=== PATIENT | male | born 1950 | race Caucasian/White ===

== ENCOUNTER 2019-07-25 20:24 | Inpatient (IN) | payer MEDICARE, OTHER, SELFPAY ==
--- NOTE | ~2019-07-25 | XR_ITS ---
EXAMINATION: XR chest 1V portable DATE: 08/03/2019 05:59 INDICATION: Right lower lobe infiltrate. TECHNIQUE: A single frontal view of the chest was obtained. COMPARISON: Chest single view 08/01/2019, chest CT 07/26/2019 FINDINGS: There are small pleural effusions. There are airspace opacities in right mid and lower lung zones and left lower lung zone with a basilar predominance. No pneumothorax. The heart size is marisabel l. Calcified left hilar lymph nodes are consistent with old granulomatous disease. IMPRESSION: 1. Stable airspace opacities in right mid and lower lung zones and left lower lung zone with a basila r predominance, consistent with atelectasis versus pneumonia. 2. Small pleural effusions with worsening on the left. Reviewed, dictated and finalized at location A. IMPRESSION: 1. Stable airspace opacities in right mid and lower lung zones and left lower l juvencio zone with a basilar predominance, consistent with atelectasis versus pneumo seamus. 2. Small pleural effusions with worsening on the left.
--- NOTE | ~2019-07-25 | CT_ITS ---
EXAMINATION: CTA chest PE protocol EXAM DATE: 07/26/2019 10:47 INDICATION: Tachycardia, hypoxia. Facet atrial fibrillation. TECHNIQUE: Spiral CTA of the chest (pulmonary arteries) was performed with 100 cc Omnipaque 350 intr avenous contrast injection. Images were acquired during the pulmonary arterial phase. Coronal maxi mum intensity projection 3D-reconstructions were created by the technologist on dedicated workstation . Axial, coronal and sagittal reformatted images were reviewed. The dose-length product (DLP) for t his examination was 755.52 mGy-cm. The exposure was tailored according to patient size (auto mA exp osure control), and iterative reconstruction (ASIR) was used as additional dose reduction technique. There is no prior study for comparison. FINDINGS: There are no pulmonary emboli in the 1st through 3rd order (central and interlobar) pulmon claudio arteries. Some loss of attenuation in the basilar segmental pulmonary arteries due to respirator y motion, but no intraluminal filling defects suspected. No thoracic aortic dissection. There is mi ld emphysema. The lungs are clear. Small pericardial effusion. Tracheobronchial tree is patent. There is no mediastinal, hilar or axillary lymphadenopathy. There is no pneumothorax. Mild cardio megaly. There is mild to moderate coronary arterial calcification, arterial sclerosis. Hepatic stea tosis. There is mild thoracic spondylosis without osteoblastic or osteolytic lesions identified. Ch ronic mild to moderate compression fracture central aspect of T12. IMPRESSION: 1. Limited segmental evaluation, but no pulmonary emboli are suspected. 2. Small pericardial effusion. 3. Mild cardiomegaly. 4. Mild emphysema. Reviewed, dictated and finalized at location A.
--- NOTE | ~2019-07-25 | CT_ITS ---
EXAMINATION: CT brain wo con EXAM DATE: 07/26/2019 10:48 INDICATION: Syncope. TECHNIQUE: Spiral CT of the head was performed without contrast. Axial, coronal and sagittal images were reviewed. The dose-length product (DLP) for this examination was 681.00 mGy-cm. The exposure w as tailored according to patient size, and iterative reconstruction (ASIR) was used as additional dos e reduction technique. There is no prior study for comparison. FINDINGS: Study is limited due to patient motion. There is no acute intraparenchymal hemorrhage. No evidence of intraparenchymal brain mass lesion. No evidence of acute infarction. Please note that i nitial head CT has limited sensitivity for small or acute infarctions. There is mild periventricular and subcortical hypodensity, nonspecific but probably related to small vessel ischemic disease. The re is mild prominence of the sulci and ventricles related to cerebral atrophy. There is intracrania l carotid arteriosclerosis. There are no extra-axial collections. There is no mass effect or midlin e shift. Patient has had bilateral ocular lens surgery. Soft tissue is unremarkable. The visualize d sinuses and mastoid air cells are well aerated. IMPRESSION: 1. No acute intracranial findings. 2. Chronic age related findings. Reviewed, dictated and finalized at location A.
--- NOTE | ~2019-07-25 | XR_ITS ---
EXAMINATION: XR chest 1V portable DATE: 07/25/2019 20:45 INDICATION: Weakness. Tachycardia. TECHNIQUE: frontal view of the chest was obtained. COMPARISON: None FINDINGS: Mostly bibasilar atelectasis. No other airspace opacities, pulmonary edema, pleural effusion or pneum othorax. The cardiomediastinal silhouette is within normal limits for AP technique. Mild degenerative skeletal changes in the spine and at both shoulders. IMPRESSION: 1. Minimal bibasilar atelectasis. Reviewed, dictated and finalized at location A.
--- NOTE | ~2019-07-25 | XR_ITS ---
XR chest 1V portable DATE: 07/28/2019 11:21 INDICATION: Cough. Rhonchi, gurgling lung sounds. Hypoxia. TECHNIQUE: Portable upright AP chest on 07/08/2019 at 1118 hours COMPARISON: 07/25/2019 portable AP chest FINDINGS: Cardiomegaly. Aortic calcification. There is moderate elevation of the right leaf of the diaphragm. There are bibasilar mild patchy infil trates and/atelectasis. Pulmonary vascularity appears within normal range. IMPRESSION: Cardiomegaly Aortic atherosclerosis Bibasilar mild infiltrate and/atelectasis, increased since 07/25/2019 Reviewed, dictated and finalized at location A.
--- NOTE | ~2019-07-25 | XR_ITS ---
EXAMINATION: XR abdomen/kub 1V EXAM DATE: 07/26/2019 10:50 INDICATION: Right lower quadrant pain, flank pain. Cholecystitis. Syncope, atrial fibrillation. TECHNIQUE: Frontal projection of the upper abdomen, frontal projection lower abdomen/pelvis for inter pretation. There is no prior study for comparison. FINDINGS: There is expected amount of colonic stool and gas. No small bowel dilation, nonobstructiv e bowel gas pattern. There are no suspicious calcifications identified. There is no organomegaly suspected. The bones are unremarkable. IMPRESSION: Unremarkable abdomen x-ray exam. Reviewed, dictated and finalized at location A.
--- NOTE | ~2019-07-25 | CT_ITS ---
EXAMINATION: CT abdomen pelvis wo con EXAM DATE: 07/26/2019 10:47 INDICATION: Right lower quadrant pain. TECHNIQUE: Spiral CT of the abdomen and pelvis was performed without contrast. Axial, coronal and s agittal images were reviewed. The dose-length product (DLP) for this examination was 1399.50 mGy-cm. The exposure was tailored according to patient size (auto mA exposure control), and iterative recon struction (ASIR) was used as additional dose reduction technique. There is no prior study for compar ani. FINDINGS: There is hepatic steatosis without suspicious focal lesion identified. Spleen, adrenal glan ds, pancreas are unremarkable. Gallbladder is moderately distended with extensive adjacent inflammat ion. Small calcified cholelithiasis. Appearance is consistent with acute cholecystitis. No emphysema. Partially duplicated right renal collecting system with mild to moderate hydronephrosis of the supe rior moiety, versus peripelvic renal cysts. No nephrolithiasis or obstructing stones identified. The prostate is unremarkable. The bladder is collapsed at time of imaging limiting evaluation. There i s no retroperitoneal or pelvic lymphadenopathy. The appendix is normal. The stomach and small bowel are unremarkable. There is extensive scattered d escending and sigmoid colonic diverticulosis. There is no adjacent inflammatory change to suggest di verticulitis. No free intraperitoneal gas. Mild cardiomegaly and small pericardial effusion. The lung bases are unremarkable. There are no osteoblastic or osteolytic lesions identified. IMPRESSION: 1. Acute cholecystitis. 2. Colonic diverticulosis. 3. Right renal peripelvic cyst versus partially duplicated collecting system with some upper moiety hydronephrosis, but no obstructing stones. I discussed acute cholecystitis with Mirna Livingston PA-C at 07/26/2019 10:57 CDT. Reviewed, dictated and finalized at location A. IMPRESSION: 1. Acute cholecystitis. 2. Colonic diverticulosis. 3. Right renal peripelvic cyst versus partially duplicated collecting system w ith some upper moiety hydronephrosis, but no obstructing stones. I discussed acute cholecystitis with Mirna Livingston PA-C at 07/26/2019 10:5 7 CDT.
--- NOTE | ~2019-07-25 | XR_ITS ---
EXAMINATION: XR chest 1V portable INDICATION: Tachypnea and shortness of breath TECHNIQUE: Portable AP chest at 0612 hours COMPARISON: 07/28/2019 FINDINGS: There is a new small right pleural effusion. Cardiomegaly is noted. There is a mild diffuse interstitial pattern. There are increased by basilar and right midlung zone airspace opacities. Ther e is no pneumothorax. IMPRESSION: 1. Cardiomegaly with mild pulmonary edema. 2. Airspace opacities of the lung bases and right midlung zone, consistent with atelectasis versus pn eumonia. 3. Small right pleural effusion. Reviewed, dictated and finalized at location A. IMPRESSION: 1. Cardiomegaly with mild pulmonary edema. 2. Airspace opacities of the lung bases and right midlung zone, consistent with atelectasis versus pneumonia. 3. Small right pleural effusion.
[2019-07-25 20:24] VITALS: BP 125/100; PULSE 154; RESP 27; TEMP 37.1; O2SAT 97
--- NOTE | 2019-07-25 20:33 | ECG_ITS ---
Measurements Intervals [place] Rate: 150 P: ND: 0 QRS: 47 QRSD: 84 T: 0 QT: 173 QTc: 273 Interpretive Statements ATRIAL FIBRILLATION WITH RAPID VENTRICULAR RESPONSE VENTRICULAR PREMATURE COMPLEX NONSPECIFIC ST & T-WAVE ABNORMALITY- DIFFUSE LEADS BASELINE ARTIFACT- V3 ABNORMAL ECG Electronically Signed On 07-26-2019 7:59:32 CDT by Michael Cedeno D.O.
[2019-07-25 20:52] VITALS: BP 94/62; PULSE 115; RESP 24; O2SAT 98
--- NOTE | 2019-07-25 21:07 | ED.GENADULT ---
HPI - General Adult General Chief complaint: Weakness Stated complaint: generalized weakness/ falls Time Seen by Provider: 07/25/19 20:33 History of Present Illness HPI narrative: The patient arrives via EMS from home for generalized weakness for 2 days. He has a chronic cough from smoking with clear sputum. He denies fever chills or sweats. His appetite is good and his bowels are moving. He has nocturia x1. He has no chest pain. He does not complain of palpitations or shortness of breath. His EKG shows A. fib with rapid ventricular rate, and he has never had this before. His has A. fib, and is staying home due to multiple medical problems. 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 He takes prescription medication but he does not know the names of them and does not have the list. He denies using any inhaler Onset (ago): day(s) Severity: moderate Related Data Home Medications Medication Instructions Recorded Confirmed aspirin 325 mg PO DAILY 07/25/19 carvedilol 12.5 mg PO BID 07/25/19 cholecalciferol (vitamin D3) 125 mcg PO DAILY 07/25/19 [Vitamin D3] diltiazem HCl PO 07/25/19 lansoprazole 30 mg PO DAILY 07/25/19 olmesartan-hydrochlorothiazide 1 tablet PO DAILY 07/25/19 potassium chloride 10 meq PO DAILY 07/25/19 pravastatin 07/25/19 07/25/19 terazosin 10 mg PO DAILY 07/25/19 Allergies Allergy/AdvReac Type Severity Reaction Status Date / Time Penicillins Allergy Severe Hives / Verified 03/09/14 11:14 Red Face Review of Systems Review of Systems: Narrative: CONSTITUTIONAL: Denies fever, chills, or sweats. EYES: Denies visual changes, redness, or discharge. ENT: Denies rhinorrhea, congestion, sore throat, or otalgia. CARDIOVASCULAR: Denies chest pain, palpitations, or edema. RESPIRATORY: Denies dyspnea or wheezes. GASTROINTESTINAL: Denies abdominal pain, nausea, vomiting, or diarrhea. GENITOURINARY: Denies dysuria or hematuria. SKIN: Denies rash or itching. MUSCULOSKELETAL: Denies back pain, joint pain, or myalgia. NEUROLOGIC: Denies headache, numbness, or weakness. PSYCHIATRIC: Denies anxiety or depression. All systems reviewed & are unremarkable except as noted in HPI and below PMFSH Past Medical History Medical History (Updated 07/25/19 @ 21:51 by Charis Koo MD) Male circumcision Social History Social History Smoking status: Current every day smoker Alcohol intake: current Substance use: never Exam Narrative: Exam Narrative: GENERAL: Well-appearing, well-nourished, and in no acute distress.His hair is longer and unkempt, his fletcher is white and shaggy. HEAD: Normocephalic, atraumatic. EYES: PERRLA and EOMI. ENT: Nares clear, no rhinorrhea or epistaxis. Mucous membranes moist. NECK: Supple. CHEST: . No respiratory distress.Audible wheezes. HEART: No murmur heard. Normal peripheral pulses. ABDOMEN: Soft, nontender, nondistended, normal active bowel sounds. EXTREMITIES: Normal range of motion.Slight edema of the ankles, left greater than right. SKIN: Warm, dry, no rash. NEURO: No focal deficits. Alert and oriented x3. PSYCH: Normal mood and affect. Course Course Emergency Course: Checked on the patient he is feeling fine. His blood pressure dropped into the 80s when his heart rate got down in the 90s, so we temporarily stopped the diltiazem drip and he recovered. Dr. Moon and would like the drip resumed at admission. He has no request for either food or drink. He is ready for admission. Consultations Consultation #1: Call Dr. Moon and she accepts the admission and request the intermediate care unit. Date: 07/25/19 Time: 22:09 Vital Signs Vital signs: Vital Signs Temperature 98.7 F 07/25/19 20:24 Pulse Rate 154 H 07/25/19 20:24 Respiratory Rate 27 H 07/25/19 20:24 Blood Pressure 125/100 H 07/25/19 20:24 Pulse Oximetry 97 07/25/19 20:24 Tem
[2019-07-25 21:08] LABS: Basophils Percent Auto 0.3 % (0.2-1.2); Eosinophils Percent Auto 0.1 % (0-4.4); Hematocrit 36.8 % (42.0-52.0); Hemoglobin 13.1 g/dL (14.0-18.0); Immature Granulocyte Absolute 0.03 K/mm3 (0.00-0.031); Immature Granulocyte Percent A 0.4 % (0-0.5); Lymphocytes Absolute Auto 0.81 K/mm3 (0.9-3.2); Lymphocytes Percent Auto 11.7 % (18.3-44.2); Mean Corpuscular HGB Conc 35.6 g/dl (32-36); Mean Corpuscular Hemoglobin 35.8 pg (26-34); Mean Corpuscular Volume 100.5 fl (80-100); Mean Platelet Volume 10.8 fl (7.4-10.4); Monocytes Absolute Auto 0.6 K/mm3 (0.1-0.6); Monocytes Percent Auto 8.7 % (2.6-8.5); Neutrophils Absolute Auto 5.5 K/mm3 (1.3-6.7); Neutrophils Percent Auto 78.8 % (45.5-73.1); Platelet Count Result 138 k/mm3 (150-375); Red Blood Count 3.66 M/mm3 (4.6-6.20); Red Cell Distribution Width 12.4 % (11.5-14.5); White Blood Count 6.9 K/mm3 (4.5-10.0)
[2019-07-25 21:22] LABS: Alanine Aminotransferase 21 U/L (4-50); Albumin Level 2.6 g/dL (3.5-5.1); Alkaline Phosphatase 101 U/L (38-126); Aspartate Amino Transferase 43 U/L (17-59); Bilirubin,Total 1.3 mg/dL (0.2-1.3); Blood Urea Nitrogen 12 mg/dL (9-20); Calcium 8.2 mg/dL (8.4-10.2); Carbon Dioxide 26 mmol/L (22-30); Chloride 99 mmol/L (98-107); Estimated Glomerular Filt Rate > 60; Glucose 178 mg/dL (75-110); Potassium 2.7 mmol/L (3.4-5.0); Sodium 132 mmol/L (137-145)
--- NOTE | 2019-07-25 21:25 | PC.NURSE ---
Spoke with pts . Updated on pt status.
[2019-07-25 21:31] LABS: NT Pro B Type Natriuretic Pept 3190 PG/ML (5-100); Troponin I < 0.012 ng/mL (0.000-0.034)
[2019-07-25] MEDS: POTASSIUM CHLORIDE 20 MEQ PACKET (FOR LIQUID) 40 MEQ PO (21:38)
[2019-07-25 21:39] VITALS: BP 85/58; PULSE 97; RESP 22; O2SAT 98
[2019-07-25 22:03] VITALS: BP 94/70; PULSE 98; RESP 24; O2SAT 99
[2019-07-25 22:37] VITALS: BP 101/82; PULSE 98; RESP 24; O2SAT 98
[2019-07-25 23:00] VITALS: BP 106/60; PULSE 106; PULSE 108; RESP 20; TEMP 36.3; O2SAT 97
[2019-07-25 23:02] VITALS: BMI 29.4
--- NOTE | 2019-07-25 23:13 | ADMGEN ---
This patient, Lloyd Redman, was admitted to IMU Room 214-01 on 07/25/19 at 2253. Patient/family oriented to hospital policies and general routines including ID bracelet, bed and alarms, visiting hours, pain management, procedures, bathroom and other care routines, personal items, smoking policy, room service/diet, and visiting hours. Valuables list has been completed. Information on how to activate the Rapid Response Team has been discussed. Patient/Family are encouraged to report perceived risks to care and to ask questions if they do not understand what they are told or what they should do.
[2019-07-26] VITALS (22 sets, daily range): BP systolic 90–136; BP diastolic 67–107; PULSE 55–107; RESP 18–36; TEMP 36.1–37.4; O2SAT 90–100
[2019-07-26 01:46] LABS: Magnesium 1.3 mg/dL (1.6-2.3)
[2019-07-26] MEDS: THIAMINE HCL 200 MG/2 ML VIAL 100 MG IV PUSH (01:47)
[2019-07-26 01:58] LABS: Troponin I < 0.012 ng/mL (0.000-0.034)
[2019-07-26 05:03] LABS: Troponin I < 0.012 ng/mL (0.000-0.034)
[2019-07-26 07:47] LABS: Folic Acid 5.2 ng/mL (2.76->20)
[2019-07-26] MEDS: POTASSIUM CHLORIDE 10 MEQ TABLET.ER 40 MEQ PO (08:07)
[2019-07-26] MEDS: ASPIRIN 325 MG ENTERIC TABLET PO (08:08)
[2019-07-26] MEDS: carvediloL 12.5 MG TABLET PO ×2 (08:08→20:31)
[2019-07-26] MEDS: FOLIC ACID 1 MG TABLET PO (08:08)
[2019-07-26] MEDS: THIAMINE HCL 100 MG TABLET PO (08:08)
[2019-07-26] MEDS: PRAVASTATIN SODIUM 20 MG TABLET 40 MG PO (08:09)
[2019-07-26] MEDS: CHOLECALCIFEROL 1,000 UNIT TABLET 5000 UNITS PO (08:09)
--- NOTE | 2019-07-26 10:16 | PM.IMHP ---
H&P: HPI History of Present Illness Chief complaint: a fib rvr Narrative: Lloyd Redman is a 69 year old male with a past medical history of hypertension, GERD and hyperlipidemia who presented emergency room for right lower quadrant and epigastric pain that has been going on for 4 days. He says this is a severe constant stabbing in both areas and is a 10/10 when he is laying down and a 7/10 when sitting. He says Advil makes it better and sitting up sometimes makes it better as well. Nothing makes it worse that he knows of. He is eaten and has not experienced any nausea, vomiting or diarrhea. He says he drinks about 3 alcoholic drinks a day which consist of 4 oz of Tequila a piece. He has never had alcohol withdrawal. He denies history of kidney stone, blood clot, dysuria, black stool, constipation, fevers, chest pain, shortness of breath, numbness or tingling to any part of the body, or heart palpitations. He also mentions that yesterday he fell down and passed out. He said he was standing up and felt things go black and the next thing he remembers is waking up in an ambulance. He is unsure if he lost control of his bowels or bladder and denies ever having a seizure. No neck pain or head pain. With that being said, EMS states that they responded to a call for weakness and multiple ground level falls and found the patient sitting in the recliner and was alert and oriented x3. he gave me the number to his , Raine, who he says was there during this but I was unable to reach her. He has never seen a rn ostomy before. Review of Systems Review of Systems: All systems reviewed & are unremarkable except as noted in HPI and below [facility] Past Medical History Medical History (Updated 07/26/19 @ 10:35 by Mirna Livingston PA-C) CHF (congestive heart failure) Essential hypertension GERD (gastroesophageal reflux disease) Histoplasmosis History of BPH History of TIAs Hyperlipidemia Vitamin D deficiency Surgical History Surgical History History of bilateral cataract extraction History of vasectomy Male circumcision Family History Family History Sibling Polio Father Lung cancer Mother Hypertension Social History Social History (Updated 07/26/19 @ 10:36 by Mirna Livingston PA-C) Social History: Patient drinks (3) 4 oz drinks of Tequila a day, smokes a pack and half a day for 55 years, would like to be a full code. Surrogate decision maker is Raine phone number [phone]. Smoking packs per day: 1.5 Smoking cigarettes per day: 30.0 Years smoked: 54 Smoking pack-years: 81.00 Smoking status: Current every day smoker Tobacco type: cigarettes Alcohol intake: current Drinks per week: 28 Alcohol use details: Patient's last drink was around noon on 07/25/2019 with. Substance use: former Substance use type: marijuana Last use: 1970 Living arrangements: with family Additional living arrangements comments: He lives at home with his . Occupation/Education: retired Gender identity (if verbalized by the patient): Male Spiritual care concerns: No Agree to blood products: No Meds Home Medications and Allergies Home Medications Medication Instructions Recorded Confirmed Type aspirin 325 mg PO DAILY 07/25/19 07/25/19 History carvedilol 12.5 mg PO BID 07/25/19 07/25/19 History cholecalciferol (vitamin D3) 125 mcg PO DAILY 07/25/19 07/25/19 History [Vitamin D3] diltiazem HCl 360 mg PO DAILY 07/25/19 07/25/19 History lansoprazole 30 mg PO DAILY 07/25/19 07/25/19 History olmesartan-hydrochlorothiazide 1 tablet PO DAILY 07/25/19 07/25/19 History potassium chloride 10 meq PO DAILY 07/25/19 07/25/19 History pravastatin 40 mg PO QAM 07/25/19 07/25/19 History terazosin 10 mg PO HS 07/25/19 07/25/19 History Allergies Allergy/AdvReac Type Severity Reacti
[2019-07-26 10:17] LABS: Hematocrit 36.3 % (42.0-52.0); Hemoglobin 12.8 g/dL (14.0-18.0); Mean Corpuscular HGB Conc 35.3 g/dl (32-36); Mean Platelet Volume 10.8 fl (7.4-10.4); Platelet Count Result 154 k/mm3 (150-375); Red Blood Count 3.56 M/mm3 (4.6-6.20); Red Cell Distribution Width 12.8 % (11.5-14.5); White Blood Count 12.6 K/mm3 (4.5-10.0)
[2019-07-26 10:28] LABS: Hemoglobin A1C 5.3 % (<5.7)
[2019-07-26 10:29] LABS: Alanine Aminotransferase 19 U/L (4-50); Albumin Level 2.7 g/dL (3.5-5.1); Alkaline Phosphatase 88 U/L (38-126); Aspartate Amino Transferase 30 U/L (17-59); Blood Urea Nitrogen 16 mg/dL (9-20); Calcium 8.3 mg/dL (8.4-10.2); Carbon Dioxide 28 mmol/L (22-30); Chloride 98 mmol/L (98-107); Estimated CRCL calculation 76 ml/min; Estimated Glomerular Filt Rate > 60; Glucose 152 mg/dL (75-110); Potassium 3.3 mmol/L (3.4-5.0); Sodium 130 mmol/L (137-145)
[2019-07-26 10:30] LABS: Lactic Acid Reflex 1.1 mmol/L (0.7-2.1)
[2019-07-26 10:47] LABS: Lipase 13 U/L (23-300)
[2019-07-26] MEDS: LANSOPRAZOLE ORAL SUSP 30 MG/10 ML ORAL.SUSP PO (11:33)
[2019-07-26] MEDS: MAGNESIUM SULF 2 GM/WATER 50ML 2 GM/50 ML BAG IVPB (11:33)
[2019-07-26] MEDS: metroNIDAZOLE 500 MG/ISO 100ML 500 MG/100 ML BAG 100 MG IVPB ×2 (12:24→17:56)
[2019-07-26] MEDS: CIPROFLOXACIN 400 MG/D5W 200ML 200 ML 200 MG IVPB (12:24)
[2019-07-26 12:48] LABS: Prothrombin Time 13.2 Seconds (11.1-14.7)
[2019-07-26 12:49] LABS: Partial Thromboplastin Time 28.6 SECONDS (22.3-36.8)
[2019-07-26] MEDS: ALBUTEROL SULFATE (*SP) AEROSOL 1 PUFF 2 PUFF INHALATION ×3 (13:22→20:04)
--- NOTE | 2019-07-26 13:23 | PM.CNCAR ---
Assessment and Plan Additional Plan AF with RVR in setting of acute chrolecysitis, Mild respiratory distress and wheezes probably related to chronic lung disease vs CHF, plan TTE, cont Diltiazem, avoid further uptitration of B-edmund, will need OAC after recovery from acute surgical illness. History of Present Illness History of Present Illness Consult date/time: 07/26/19 13:23 Consult reason: atrial fibrillation Reason For Visit: a fib rvr Narrative: Patient presented with subacute progressive epigastric and rt upper quadrant abdominal pain, moderate to sever, started 4 days ago, associated with fatigue, weakness, SOB, but no fever or chills. He no N or V but had dizziness on standing. He denied SOB on initial questioning but then admit that he had chronic SOB but don't know when it started. Review of Systems Review of Systems: All systems reviewed & are unremarkable except as noted in HPI and below PMFSH Past Medical History Medical History (Updated 07/26/19 @ 10:35 by Mirna Livingston PA-C) CHF (congestive heart failure) Essential hypertension GERD (gastroesophageal reflux disease) Histoplasmosis History of BPH History of TIAs Hyperlipidemia Vitamin D deficiency Surgical History Surgical History History of bilateral cataract extraction History of vasectomy Male circumcision Family History Family History Sibling Polio Father Lung cancer Mother Hypertension Social History Social History (Updated 07/26/19 @ 10:36 by Mirna Livingston PA-C) Social History: Patient drinks (3) 4 oz drinks of Tequila a day, smokes a pack and half a day for 55 years, would like to be a full code. Surrogate decision maker is Raine phone number [phone]. Smoking packs per day: 1.5 Smoking cigarettes per day: 30.0 Years smoked: 54 Smoking pack-years: 81.00 Smoking status: Current every day smoker Tobacco type: cigarettes Alcohol intake: current Drinks per week: 28 Alcohol use details: Patient's last drink was around noon on 07/25/2019 with. Substance use: former Substance use type: marijuana Last use: 1970 Living arrangements: with family Additional living arrangements comments: He lives at home with his . Occupation/Education: retired Gender identity (if verbalized by the patient): Male Spiritual care concerns: No Agree to blood products: No Meds Home Medications and Allergies Home Medications Medication Instructions Recorded Confirmed Type aspirin 325 mg PO DAILY 07/25/19 07/25/19 History carvedilol 12.5 mg PO BID 07/25/19 07/25/19 History cholecalciferol (vitamin D3) 125 mcg PO DAILY 07/25/19 07/25/19 History [Vitamin D3] diltiazem HCl 360 mg PO DAILY 07/25/19 07/25/19 History lansoprazole 30 mg PO DAILY 07/25/19 07/25/19 History olmesartan-hydrochlorothiazide 1 tablet PO DAILY 07/25/19 07/25/19 History potassium chloride 10 meq PO DAILY 07/25/19 07/25/19 History pravastatin 40 mg PO QAM 07/25/19 07/25/19 History terazosin 10 mg PO HS 07/25/19 07/25/19 History Allergies Allergy/AdvReac Type Severity Reaction Status Date / Time Penicillins Allergy Severe Hives / Verified 07/25/19 23:36 Red Face Vital Signs Vital Signs - 24 hr 07/25/19 20:24 07/25/19 20:52 07/25/19 21:39 Temperature 37.1 C Pulse Rate 154 H 115 H 97 Pulse Rate [Monitor] Respiratory Rate 27 H 24 H 22 H Blood Pressure 125/100 H 94/62 L 85/58 L Pulse Oximetry 97 98 98 07/25/19 22:03 07/25/19 22:37 07/25/19 23:00 Temperature 36.3 C L Pulse Rate 98 98 108 H Pulse Rate [Monitor] Respiratory Rate 24 H 24 H 20 Blood Pressure 94/70 L 101/82 106/60 Pulse Oximetry 99 98 97 07/26/19 00:00 07/26/19 00:44 07/26/19 01:54 Temperature 36.3 C L Pulse Rate 79 89 Pulse Rate [Monitor] 79 Respiratory Rate 22 H Blood Pressure 98/67 L Pul
[2019-07-26] MEDS: LACTATED RINGERS 1,000 ML 100 ML IV CONT (16:00)
[2019-07-26 16:09] LABS: Basophils Absolute Auto 0.1 K/mm3 (0.0-0.1); Basophils Percent Auto 0.5 % (0.2-1.2); Hematocrit 34.1 % (42.0-52.0); Hemoglobin 11.7 g/dL (14.0-18.0); Immature Granulocyte Absolute 0.09 K/mm3 (0.00-0.031); Immature Granulocyte Percent A 0.7 % (0-0.5); Lymphocytes Absolute Auto 0.77 K/mm3 (0.9-3.2); Lymphocytes Percent Auto 6.1 % (18.3-44.2); Mean Corpuscular HGB Conc 34.3 g/dl (32-36); Mean Corpuscular Hemoglobin 35.2 pg (26-34); Mean Corpuscular Volume 102.7 fl (80-100); Mean Platelet Volume 11.1 fl (7.4-10.4); Monocytes Absolute Auto 0.7 K/mm3 (0.1-0.6); Monocytes Percent Auto 5.7 % (2.6-8.5); Platelet Count Result 144 k/mm3 (150-375); Red Blood Count 3.32 M/mm3 (4.6-6.20); Red Cell Distribution Width 12.9 % (11.5-14.5); White Blood Count 12.6 K/mm3 (4.5-10.0)
[2019-07-26 16:21] LABS: Ammonia < 9 umol/L (9-30); Blood Urea Nitrogen 19 mg/dL (9-20); Calcium 7.9 mg/dL (8.4-10.2); Carbon Dioxide 26 mmol/L (22-30); Chloride 99 mmol/L (98-107); Creatine Kinase < 20 U/L (55-170); Estimated CRCL calculation 69 ml/min; Estimated Glomerular Filt Rate > 60; Ethanol < 10 mg/dL (<10); Glucose 159 mg/dL (75-110); Potassium 3.3 mmol/L (3.4-5.0); Sodium 131 mmol/L (137-145)
[2019-07-26 16:29] LABS: Alveolar/Arterial O2 Gradient 80.5 mmHg; Base Excess ABG 3.2 mEq/l (+/-2.0); Device NASAL CANNULA; Fractional Inspired Oxygen 28 %; HCO3 ABG 26.9 mEq/l (22.0-26.0); Modified Allen's Test Pass; Oxygen Content ABG 17.4 %vol (16.0-22.0); Oxygen Saturation ABG 95.8 % (95.0-100.0); Oxyhemoglobin 94.1 % THb (90.0-100.0); PCO2 ABG 37.7 mmHg (35.0-45.0); PO2 ABG 74.7 mmHg (80.0-100.0); PO2 FiO2 Ratio Arterial Blood 2.67 %; Site Drawn RIGHT RADIAL; Total Hemoglobin 13.1 g/dL (12.0-18.0); pH ABG 7.471 (7.350-7.450)
[2019-07-26 16:55] LABS: Add Urine Microscopic? YES; Appearance Urine Clear (Clear); Bacteria Urine Trace /hpf; Bilirubin Urine 2+ (Negative); Blood Urine Negative (Negative); Color Urine Amber (Yellow); Glucose Urine UA Negative (Negative); Ketones Urine Negative (Negative); Leukocyte Esterase Ur Negative LEU/UL (Negative); Mucus Urine Rare /lpf; Nitrate Urine Negative (Negative); Protein Urine Negative (Negative); Squamous Epithelial Cell Urine Rare /hpf (Few)
[2019-07-26 17:06] LABS: Amphetamine Screen Urine Negative (Negative); Barbiturate Screen Urine Negative (Negative); Benzodiazepines Screen Urine Negative (Negative); Cannabinoid Screen Urine Negative (Negative); Cocaine Screen Urine Negative (Negative); Methadone Screen Urine Negative (Negative); Opiate Screen Urine Negative (Negative); Phencyclidine Screen Urine Negative (Negative)
[2019-07-26] MEDS: TERAZOSIN HCL 5 MG CAPSULE 10 MG PO (20:31)
[2019-07-26] MEDS: CIPROFLOXACIN 400 MG/D5W 200ML 200 ML IVPB (20:35)
[2019-07-27] VITALS (30 sets, daily range): BP systolic 102–172; BP diastolic 62–88; PULSE 55–134; RESP 16–24; TEMP 36.1–37.4; O2SAT 93–99
--- NOTE | 2019-07-27 | ECHO_ITS ---
Patient Info Name: Lloyd Redman Age: 69 years : 1950 Gender: Male Ht: 72 in Wt: 216 lbs BSA: 2.25 m2 HR: 81 bpm BP: 108 / 73 mmHg Heart Rhythm: Atrial Fibrillation Technical Quality: Good Exam Date: 07/27/2019 9:44 AM Exam Location: [facility] Pul[facility] Patient Status: Inpatient Admit Date: 07/26/2019 Staff Ordering Physician: Adrianna Mcmillan DO Cogeneration Technician: Bradley Toney RDCS, RT Attending Provider: Mirna Livingston PA-C Referring Physician: Hipolito ARIAS; Exam Type: CA echo doppler color flow Study Info Indications I48.1 - Persistent atrial fibrillation Complete two-dimensional, color flow and Doppler transthoracic echocardiogram is performed. Summary 1. Left ventricular chamber dimension is normal. 2. Left ventricular systolic function is mildly reduced, estimated at 45-50%. 3. There is mild mitral valve regurgitation. 4. There is mild aortic valve sclerosis. 5. Biatrial dilation. Left Ventricle Left ventricular chamber dimension is normal. Left ventricular systolic function is mildly reduced, estimated at 45-50%. Right Ventricle Right ventricular chamber dimension is normal. Left Atria Left atrial chamber dimension is moderately enlarged. Right Atria Right atrial chamber dimension is moderately enlarged. Aortic Valve The aortic valve is trileaflet. There is mild aortic valve sclerosis. Pulmonic Valve The pulmonic valve is not well visualized. Mitral Valve The mitral valve has normal leaflets and calcified annulus. There is mild mitral valve regurgitation. Tricuspid Valve The tricuspid valve leaflets are normal. There is mild tricuspid valve regurgitation. Pericardium/Pleural The pericardium appears normal. Aorta The aortic root size at the sinus of Valsalva is normal. Left Ventricular Outflow Tract Name Value Normal LVOT 2D LVOT Diameter 2.4 cm LVOT Doppler LVOT Peak Gradient 2 mmHg LVOT Mean Gradient 1 mmHg LVOT VTI 14 cm LVOT VTI/AV VTI Ratio 0.7 LVOT Stroke Volume 60 ml LVOT CO 5.5 l/min LVOT CI 2.5 l/min/m2 Mitral Valve Name Value Normal MV Doppler MV Peak Gradient 1 mmHg MV Mean Gradient 0 mmHg MV Decel [place] 645 cm/s2 MV PHT 51 ms MV Area (PHT) 4.3 cm2 4.0-5.0 MV Area (Cont Eq VTI) 8.1 cm2 MV Regurgitation Doppler MR Volume (Cont Eq) 8 ml MR Fraction (Cont Eq) 11 %
[2019-07-27] MEDS: LACTATED RINGERS 1,000 ML 100 ML IV CONT ×2 (00:27→17:26)
[2019-07-27] MEDS: metroNIDAZOLE 500 MG/ISO 100ML 500 MG/100 ML BAG 100 MG IVPB ×4 (00:27→23:23)
[2019-07-27 04:42] LABS: Hemoglobin 11.2 g/dL (14.0-18.0); Mean Corpuscular Hemoglobin 35.8 pg (26-34); Mean Corpuscular Volume 102.2 fl (80-100); Platelet Count Result 149 k/mm3 (150-375); Red Blood Count 3.13 M/mm3 (4.6-6.20); White Blood Count 11.2 K/mm3 (4.5-10.0)
[2019-07-27 05:00] LABS: Blood Urea Nitrogen 21 mg/dL (9-20); Calcium 7.9 mg/dL (8.4-10.2); Carbon Dioxide 27 mmol/L (22-30); Chloride 99 mmol/L (98-107); Estimated CRCL calculation 63 ml/min; Estimated Glomerular Filt Rate > 60; Glucose 123 mg/dL (75-110); Magnesium 1.7 mg/dL (1.6-2.3); Potassium 2.8 mmol/L (3.4-5.0); Sodium 132 mmol/L (137-145)
[2019-07-27] MEDS: ALBUTEROL SULFATE (*SP) AEROSOL 1 PUFF 2 PUFF INHALATION (08:23)
[2019-07-27] MEDS: CIPROFLOXACIN 400 MG/D5W 200ML 200 ML IVPB ×2 (08:25→20:03)
[2019-07-27] MEDS: carvediloL 12.5 MG TABLET PO ×2 (08:33→20:02)
--- NOTE | 2019-07-27 09:05 | PM.PNCARD ---
Progress Note: A&P Additional Plan 69-year-old man with: Atrial fibrillation asymptomatic and of unknown chronicity. Heart rate is reasonably well controlled with diltiazem. Once it is clear that he will not need surgery he should be systemically anticoagulated. Abdominal pain, patient certainly may have gallbladder disease, surgical consultation is pending Chronic alcohol and tobacco abuse Donavan Monahan MD [facility] Subjective Date/time seen: Date of service: 07/27/19 09:05 Interval history: Follow-up visit in this 69-year-old man who has atrial fib of unknown duration. Patient presented to the hospital with mid abdominal and right upper quadrant abdominal pain that started early last week. Patient was in atrial fib with RVR upon presentation but was hemodynamically not embarrassed and unaware of his arrhythmia. Heart rate is reasonably well controlled with diltiazem. Exam Const: General: comfortable and no acute distress HENMT: Mouth: Yes moist mucous membranes Eyes: Sclera: sclerae normal Pupils: Equal, round and reactive pupils present Neck: Neck: supple Thyroid: thyroid normal Other: Exam for JVD difficult as he is somewhat overweight with a thick neck Resp: Effort & Inspection: normal respiratory effort Other: Diffuse expiratory wheezes noted but fairly good air movement Cardio: Rhythm: abnormal rhythm irregularly irregular GI: Auscultation: normal bowel sounds Other: Patient has mild right upper quadrant abdominal pain but no acute abdomen signs at least by my exam Skin: General skin exam: normal color Neuro: Cognition (Neuro): normal cognition Extrem: Other: No significant edema adequate distal pulses are noted Objective Data Vital Signs Vital Signs: Vital Signs - 24 hr 07/26/19 10:00 07/26/19 12:00 07/26/19 12:41 Temperature 36.1 C L Pulse Rate 68 73 76 Pulse Rate [Monitor] Respiratory Rate 18 Blood Pressure 90/69 L Pulse Oximetry 100 07/26/19 13:50 07/26/19 16:00 07/26/19 18:00 Temperature 36.1 C L Pulse Rate 57 L 72 85 Pulse Rate [Monitor] Respiratory Rate 24 H Blood Pressure 96/70 L Pulse Oximetry 96 07/26/19 20:00 07/26/19 20:07 07/26/19 20:31 Temperature 37.4 C Pulse Rate 55 L 99 107 H Pulse Rate [Monitor] 88 Respiratory Rate 24 H 24 H Blood Pressure 111/82 Pulse Oximetry 97 95 07/26/19 22:00 07/27/19 00:00 07/27/19 02:00 Temperature 36.6 C Pulse Rate 72 77 67 Pulse Rate [Monitor] 80 Respiratory Rate 20 Blood Pressure 102/74 Pulse Oximetry 96 07/27/19 04:00 07/27/19 04:47 07/27/19 05:00 Temperature 37.4 C 37.4 C Pulse Rate 55 L 55 L Pulse Rate [Monitor] 82 Respiratory Rate 24 H 24 H Blood Pressure 110/66 111/82 108/73 Pulse Oximetry 97 97 07/27/19 06:00 07/27/19 08:03 07/27/19 08:14 Temperature 36.1 C L 36.1 C L Pulse Rate 93 90 90 Pulse Rate [Monitor] Respiratory Rate 22 H 22 H Blood Pressure 116/77 116/77 Pulse Oximetry 97 97 07/27/19 08:16 07/27/19 08:17 07/27/19 08:23 Temperature Pulse Rate 100 109 H Pulse Rate [Monitor] Respiratory Rate Blood Pressure 117/75 111/78 Pulse Oximetry 96 07/27/19 08:33 Temperature Pulse Rate 95 Pulse Rate [Monitor] Respiratory Rate Blood Pressure Pulse Oximetry Intake/Output Intake/Output: Intake & Output 07/24/19 07/25/19 07/26/19 07/27/19 23:59 23:59 23:59 23:59 Intake Total 1200 1500 Output Total 30 200 Balance 1170 1300 Meds/Results Medications: Active Medications Generic Name Dose Route Start Last Admin Trade Name Freq PRN Reason Stop Dose Admin Albuterol 2 puff 07/25/19 20:51 Proventil Hfa INHALATION QIDRT PRN Shortness Of Breath Albuterol 2 puff 07/26/19 12:00 07/27/19 08:23 Proventil Hfa INHALATION 2 puff QIDRT MONET Administration Aspirin 325 mg 07/26/19 09:00 07/26/19 08:08 Aspirin Ec PO 325 mg DAILY MONET Administration Carvedilol 12.5
--- NOTE | 2019-07-27 09:48 | PM.IMPN ---
Progress Note: A&P Assessment and Plan (1) Acute cholecystitis: Code(s): K81.0 - Acute cholecystitis Status: Acute Assessment and Plan: -----patient continues to have pain in the right upper quadrant with leukocytosis. He says this has no association with food or drinking. Surgery consulted, will await their recommendations. For now, continue Cipro and Flagyl. (2) COPD exacerbation: Code(s): J44.1 - Chronic obstructive pulmonary disease with (acute) exacerbation Status: Acute Assessment and Plan: -----patient continues to have wheezing with a negative CTA. Will start oral steroids. First dose will be IV since he is NPO today. Continue Xopenex and ipratropium. At discharge he should be on a maintenance inhaler as he has suspected COPD. He continues to smoke 2 packs cigarettes a day which should be eliminated. He does not want a nicotine patch at this time. (3) Atrial fibrillation with rapid ventricular response: Code(s): I48.91 - Unspecified atrial fibrillation Status: Acute Assessment and Plan: -----new onset and now rate controlled on oral diltiazem. Cardiology has been consulted. TSH normal. Will do a UA since he has CVA tenderness and leukocytosis as this could be the cause of his AFib. As stated above, will rule out other infections in the abdomen that could cause AFib as well. Since the patient had a syncopal episode, CTA will be ordered. Echo pending. Troponins negative x3. No chest pain. Will address anticoagulation once full workup is back. (4) Syncopal episodes: Code(s): R55 - Syncope and collapse Status: Acute Assessment and Plan: -----his story has some inconsistencies. He states that he felt like he was going to pass out and the next thing he remembers was being in the ambulance. He is unsure if he had any loss of bowel or bladder. The EMS report states they were called because he was weak, abdominal pain, and had multiple ground level falls and when they found him he was sitting up in the recliner alert and oriented x4. Will do a CT of the brain to ensure no stroke with the new AFib but he has no neurological deficits at this time. Differential includes AFib, heart block, orthostatic hypotension, mechanical falls possibly due to alcohol, seizure, and vasovagal syncope. Hemoglobin stable (5) Chronic alcohol use: Code(s): Z72.89 - Other problems related to lifestyle Status: Acute Assessment and Plan: -----patient claims he only has 3 drinks a day in each contains 4 oz of alcohol. CIWA score is 0 at this time. Will do Ativan p.r.n. for CIWA greater than 8. Will start folic acid and thiamine. (6) Hypokalemia: Code(s): E87.6 - Hypokalemia Status: Acute Assessment and Plan: -----replaced. Will monitor daily (7) Smoker: Code(s): F17.200 - Nicotine dependence, unspecified, uncomplicated Status: Acute Assessment and Plan: -----patient will need to quit smoking. He understands this but does not seem motivated. He denies the need for nicotine patch at this time. (8) Leukocytosis: Code(s): D72.829 - Elevated white blood cell count, unspecified Status: Acute Assessment and Plan: -----due to above. (9) Macrocytic anemia: Code(s): D53.9 - Nutritional anemia, unspecified Status: Acute Assessment and Plan: -----B12 and folate normal. Hemoglobin stable. (10) GERD (gastroesophageal reflux disease): Code(s): K21.9 - Gastro-esophageal reflux disease without esophagitis Status: Acute Assessment and Plan: -----will continue PPI at this time. No evidence of bleed on history. (11) Essential hypertension: Code(s): I10 - Essential (primary) hypertension Status: Acute Assessment and Plan: -----last blood pressure 111/78. Subjective Date/time seen:
--- NOTE | 2019-07-27 10:50 | PM.CNGS ---
Assessment and Plan Assessment and plan (1) Acute cholecystitis: Code(s): K81.0 - Acute cholecystitis Status: Acute Assessment and Plan: cont abx for now, exam improved, will setup for cholecystectomy vs cholecystostomy once cardiac workup complete (2) Atrial fibrillation with rapid ventricular response: Code(s): I48.91 - Unspecified atrial fibrillation Status: Acute Assessment and Plan: rate controlled at this time (3) CHF with unknown LVEF: Code(s): I50.9 - Heart failure, unspecified Status: Acute Assessment and Plan: await cardiac workup and surgical clearance (4) COPD exacerbation: Code(s): J44.1 - Chronic obstructive pulmonary disease with (acute) exacerbation Status: Acute Assessment and Plan: cont mgmt per primary History of Present Illness Consult details Consult date: 07/27/19 Reason for consult: other (acute cholecystitis) Requesting physician: Mirna Livingston PA-C Narrative: Pt is a 69 y/o M c multiple med issues presenting to hospital c/o abd pain over last wk or so. Pt reports pain is most severe in epigastrium and R side. Pt reports assoc nausea, bloating. Pt found to have Afib c RVR upon arrival and now currently rate controlled. Review of Systems Constitutional: Constitutional: Denies anorexia, Denies chills, Reports fatigue, Denies headache(s), Reports lethargy, Denies malaise, Denies poor appetite, Reports weakness, Denies weight gain and Denies weight loss Eyes: Eyes: Denies loss of vision ENT: Denies dysphagia, Denies headache(s), Denies hearing loss and Denies sore throat Cardiovascular: Cardiovascular: Denies chest pain, Denies syncope, Denies irregular heart rhythm, Denies leg edema, Reports lightheadedness, Reports palpitations and Denies dyspnea Respiratory: Respiratory: Denies cough and Denies dyspnea Gastrointestinal: Gastrointestinal: Reports abdominal pain, Reports bloating, Denies change in bowel habits, Denies change in stool character, Denies constipation, Denies dysphagia, Reports heartburn, Denies diarrhea, Reports nausea and Denies vomiting Genitourinary: Genitourinary: Denies dysuria, Denies urinary frequency and Denies urinary urgency Musculoskeletal: Musculoskeletal: Denies myalgias, Denies arthralgias and Denies muscle cramps Integumentary/Breasts: Skin/Breast: Denies non-healing lesions and Denies rash Neurologic: Denies syncope, Denies headache(s) and Denies loss of vision Endocrine: Endocrine: Denies change in body appearance and Denies fatigue Hematologic/Lymphatic: Hematologic/Lymphatic: Denies easy bleeding, Denies easy bruising and Denies lymphadenopathy PMFSH Past Medical History Medical History CHF (congestive heart failure) Essential hypertension GERD (gastroesophageal reflux disease) Histoplasmosis History of BPH History of TIAs Hyperlipidemia Vitamin D deficiency Surgical History Surgical History History of bilateral cataract extraction History of vasectomy Male circumcision Family History Family History Sibling Polio Father Lung cancer Mother Hypertension Social History Social History Social History: Patient drinks (3) 4 oz drinks of Tequila a day, smokes a pack and half a day for 55 years, would like to be a full code. Surrogate decision maker is Raine phone number [phone]. Smoking packs per day: 1.5 Smoking cigarettes per day: 30.0 Years smoked: 54 Smoking pack-years: 81.00 Smoking status: Current every day smoker Tobacco type: cigarettes Alcohol intake: current Drinks per week: 28 Alcohol use details: Patient's last drink was around noon on 07/25/2019 with. Substance use: former Substance use type: marijuana Last
[2019-07-27] MEDS: LEVALBUTEROL NEB 1.25 MG/3 ML 0.63 MG INHALATION ×2 (13:35→19:51)
[2019-07-27] MEDS: IPRATROPIUM BR 0.02% INH SOLN 0.5 MG/2.5 ML VIAL INHALATION ×2 (13:35→19:50)
[2019-07-27] MEDS: POTASSIUM CHLORIDE 10 MEQ TABLET.ER 40 MEQ PO (17:29)
[2019-07-27] MEDS: THIAMINE HCL 100 MG TABLET PO (17:30)
[2019-07-27] MEDS: CHOLECALCIFEROL 1,000 UNIT TABLET 5000 UNITS PO (17:31)
[2019-07-27] MEDS: FOLIC ACID 1 MG TABLET PO (17:31)
[2019-07-27] MEDS: methylPREDNISolone SOD SUCC 125 MG VIAL 60 MG IV PUSH (17:45)
[2019-07-27] MEDS: MAGNESIUM SULF 2 GM/WATER 50ML 2 GM/50 ML BAG IVPB (17:45)
[2019-07-27] MEDS: PRAVASTATIN SODIUM 20 MG TABLET 40 MG PO (17:46)
[2019-07-27] MEDS: TERAZOSIN HCL 5 MG CAPSULE 10 MG PO (20:01)
[2019-07-27] MEDS: LORAZEPAM INJ 2 MG/ML VIAL 1 MG IV PUSH ×2 (20:03→22:19)
--- NOTE | 2019-07-27 22:28 | PC.NURSE ---
1800 dose of flagyl not given because 1200 dose was given late by day shift RN.
[2019-07-28] VITALS (23 sets, daily range): BP systolic 127–150; BP diastolic 78–105; PULSE 94–139; RESP 18–22; TEMP 36.4–36.9; O2SAT 92–98
[2019-07-28] MEDS: LORAZEPAM INJ 2 MG/ML VIAL 1 MG IV PUSH ×2 (00:55→21:28)
[2019-07-28] MEDS: LEVALBUTEROL NEB 1.25 MG/3 ML 0.63 MG INHALATION ×4 (02:52→19:46)
[2019-07-28] MEDS: IPRATROPIUM BR 0.02% INH SOLN 0.5 MG/2.5 ML VIAL INHALATION ×4 (02:52→19:46)
[2019-07-28 05:21] LABS: Basophils Percent Auto 0.1 % (0.2-1.2); Hematocrit 33.2 % (42.0-52.0); Hemoglobin 11.5 g/dL (14.0-18.0); Immature Granulocyte Absolute 0.13 K/mm3 (0.00-0.031); Immature Granulocyte Percent A 1.3 % (0-0.5); Lymphocytes Absolute Auto 0.53 K/mm3 (0.9-3.2); Lymphocytes Percent Auto 5.3 % (18.3-44.2); Mean Corpuscular HGB Conc 34.6 g/dl (32-36); Mean Corpuscular Hemoglobin 35.3 pg (26-34); Mean Corpuscular Volume 101.8 fl (80-100); Mean Platelet Volume 10.5 fl (7.4-10.4); Monocytes Absolute Auto 0.2 K/mm3 (0.1-0.6); Monocytes Percent Auto 1.8 % (2.6-8.5); Neutrophils Absolute Auto 9.2 K/mm3 (1.3-6.7); Neutrophils Percent Auto 91.5 % (45.5-73.1); Platelet Count Result 174 k/mm3 (150-375); Red Blood Count 3.26 M/mm3 (4.6-6.20); Red Cell Distribution Width 12.6 % (11.5-14.5); White Blood Count 10.1 K/mm3 (4.5-10.0)
[2019-07-28 05:32] LABS: Blood Urea Nitrogen 17 mg/dL (9-20); Calcium 8.5 mg/dL (8.4-10.2); Carbon Dioxide 29 mmol/L (22-30); Chloride 102 mmol/L (98-107); Estimated CRCL calculation 84 ml/min; Estimated Glomerular Filt Rate > 60; Glucose 172 mg/dL (75-110); Potassium 3.6 mmol/L (3.4-5.0); Sodium 133 mmol/L (137-145)
[2019-07-28] MEDS: LACTATED RINGERS 1,000 ML 100 ML IV CONT (06:15)
[2019-07-28] MEDS: metroNIDAZOLE 500 MG/ISO 100ML 500 MG/100 ML BAG 100 MG IVPB ×4 (06:15→23:18)
--- NOTE | 2019-07-28 08:42 | PM.PNCARD ---
Progress Note: A&P Additional Plan 69-year-old man with admitted to the hospital with abdominal pain, found to have acute cholecystitis, and atrial fibrillation with RVR in the setting of acute cholecystitis. He also has history of alcohol abuse. Echocardiogram shows mild LV systolic dysfunction with ejection fraction 45-50%, mild MR. TSH is within normal limits. At present, patient is in atrial fibrillation with RVR with heart rate in 120s. His blood pressure is at acceptable range. Resume low-dose IV diltiazem. If blood pressure drops, then will consider IV amiodarone. Hold carvedilol for now. Anticoagulation to be considered after surgical evaluation and management. Surgery is following for patient's acute cholecystitis. At present, patient is in delirium with AFib with RVR. Recommend monitoring for next 18-24 hours before surgical intervention, unless surgery is emergent. Will consider DC cardioversion if patient has AFib RVR with hemodynamic instability. Patient apparently has history of alcohol abuse. He has had episodes of agitation/delirium suggestive of delirium tremens. Management with benzodiazepines as per primary team. Management plan was discussed with the nursing staff and the primary team. Continue to monitor closely on telemetry. Subjective Date/time seen: 07/28/19 08:42 Date of service: 07/28/2019 Chief complaint: Abdominal discomfort, agitation Interval history: Patient has been having episodes of agitation. As per staff, has had episodes of agitation and delirium. At the time of evaluation, patient appeared agitated and confused. On telemetry, he is in atrial fibrillation with RVR with heart rate in 120s. Previously, his diltiazem was put on hold due to low blood pressure. Exam Const: General: comfortable, no acute distress and in distress mild Other: Able to lie flat HENMT: General nose exam: Normal nares present and no epistaxis Mouth: Yes moist mucous membranes Eyes: Sclera: sclerae normal Pupils: Equal, round and reactive pupils present Neck: Neck: supple and JVD Thyroid: thyroid normal Carotids: no bruits Other: Exam for JVD difficult as he is somewhat overweight with a thick neck Chest: Chest palpation & inspection: normal inspection of the chest and normal palpation of entire chest wall Resp: Effort & Inspection: normal respiratory effort Auscultation: clear to auscultation bilaterally and lung sounds not diminished Other: Diffuse expiratory wheezes noted but fairly good air movement Cardio: Rate: tachycardic Rhythm: abnormal rhythm irregularly irregular Heart sounds: no gallops, no murmurs and no rubs GI: Auscultation: normal bowel sounds Other: Patient has mild right upper quadrant abdominal pain Skin: General skin exam: normal color, rashes and/or lesions noted and no erythema Other: Warm Neuro: Cranial nerves: Yes Equal, round and reactive pupils present Cognition (Neuro): normal cognition Speech: normal speech Other: No obvious focal deficit or facial asymmetry Extrem: General: no edema Other: No significant edema adequate distal pulses are noted Objective Data Vital Signs Vital Signs: Vital Signs - 24 hr 07/27/19 10:00 07/27/19 12:00 07/27/19 12:13 Temperature 36.3 C L Pulse Rate 109 H 85 72 Pulse Rate [Monitor] Respiratory Rate 16 Blood Pressure 172/62 H Pulse Oximetry 99 07/27/19 13:30 07/27/19 13:35 07/27/19 13:37 Temperature Pulse Rate 94 103 H Pulse Rate [Monitor] Respiratory Rate 20 20 Blood Pressure Pulse Oximetry 96 07/27/19 14:00 07/27/19 16:00 07/27/19 16:40 Temperature 36.3 C L Pulse Rate 85 108 H Pulse Rate [Monitor] Respiratory Rate 20 Blood Pressure 121/88 Pulse Oximetry 93 97 07/27/19 19:37 07/27/19 19:51 07/27/19 19:54 Temperature 36.4 C L Pulse Rate 113 H 118 H Pulse Rate [Monitor] Respiratory Rate 18 20 Blood Pressure 141/81 H Pulse Oximetry 93 94 07/27/19 19:56 07/27/19
[2019-07-28] MEDS: THIAMINE HCL 100 MG TABLET PO (09:14)
[2019-07-28] MEDS: CHOLECALCIFEROL 1,000 UNIT TABLET 5000 UNITS PO (09:15)
[2019-07-28] MEDS: FOLIC ACID 1 MG TABLET PO (09:15)
[2019-07-28] MEDS: predniSONE 20 MG TABLET 40 MG PO (09:15)
[2019-07-28] MEDS: POTASSIUM CHLORIDE 10 MEQ TABLET.ER 40 MEQ PO (09:15)
[2019-07-28] MEDS: PRAVASTATIN SODIUM 20 MG TABLET 40 MG PO (09:15)
[2019-07-28] MEDS: LANSOPRAZOLE ORAL SUSP 30 MG/10 ML ORAL.SUSP PO (09:16)
[2019-07-28] MEDS: CHLORDIAZEPOXIDE 25 MG CAPSULE 50 MG PO ×3 (09:30→20:28)
[2019-07-28] MEDS: CIPROFLOXACIN 400 MG/D5W 200ML 200 ML 200 MG IVPB ×2 (09:34→20:32)
--- NOTE | 2019-07-28 10:03 | PCOTNOTE ---
Attempted to see patient for skilled OT, however, patient requested that therapist come back later. Will attempt later this date if time permits.
[2019-07-28] MEDS: SODIUM CHLORIDE 0.9% IV 1,000 ML 75 ML IV CONT (10:21)
--- NOTE | 2019-07-28 10:25 | PM.IMPN ---
Progress Note: A&P Assessment and Plan (1) Acute cholecystitis: Code(s): K81.0 - Acute cholecystitis Status: Acute Assessment and Plan: Appreciate surgery recommendations. It is felt due to delirium and heart rate that it would be safest to hold off on surgery today. Noted Dr Christian's plan to continue antibiotics for now since he is improving and reevaluate in 1 to 2 days if surgical intervention is necessary. Continue ciprofloxacin and flagyl (day 3) and monitor. Afebrile, white count improving. (2) Atrial fibrillation with rapid ventricular response: Code(s): I48.91 - Unspecified atrial fibrillation Status: Acute Assessment and Plan: Management per cardiology - appreciate recommendations. Troponin negative x3, no chest pain. Dr Mayer started diltiazem drip this AM with carvedilol held. His home regimen includes oral carvedilol and diltiazem. (3) Chronic alcohol use: Code(s): Z72.89 - Other problems related to lifestyle Status: Chronic Assessment and Plan: RN reports patient required sitter overnight due to agitation and confusion. Initially 3 margaritas daily was reported, now coming to light that he may drink one bottle of tequila daily. Agitation may be secondary to withdrawal. Start scheduled librium and monitor with CIWA. Continue folic acid and thiamine. (4) COPD exacerbation: Code(s): J44.1 - Chronic obstructive pulmonary disease with (acute) exacerbation Status: Acute Assessment and Plan: Continues with wheezing today, negative CTA 07/25. He continues on oral steroids and bronchodilator therapy. Plan to add maintenance inhaler at discharge with suspected COPD, PFTs as outpatient. Continued tobacco use which should be eliminated. He does not desire nicotine patch at this time. (5) Syncopal episodes: Qualifiers: Syncope type: unspecified Qualified Code(s): R55 - Syncope and collapse Code(s): R55 - Syncope and collapse Status: Acute Assessment and Plan: Some inconsistencies in history reported. EMS report states they were called due to weakness, abdominal pain, and multiple recent ground-level falls and when they found him, he was sitting up in recliner alert and oriented x 4. CT brain with no acute findings. ?mechanical falls 2/2 etoh (6) Hypokalemia: Code(s): E87.6 - Hypokalemia Status: Acute Assessment and Plan: Maintained on daily K replacement, will monitor. (7) Smoker: Code(s): F17.200 - Nicotine dependence, unspecified, uncomplicated Status: Chronic Assessment and Plan: Patient will need to quit smoking. He understands this but does not seem motivated. He denies the need for nicotine patch at this time. (8) GERD (gastroesophageal reflux disease): Qualifiers: Esophagitis presence: esophagitis presence not specified Qualified Code(s): K21.9 - Gastro-esophageal reflux disease without esophagitis Code(s): K21.9 - Gastro-esophageal reflux disease without esophagitis Status: Chronic Assessment and Plan: Continue home Prevacid. (9) Essential hypertension: Code(s): I10 - Essential (primary) hypertension Status: Chronic Assessment and Plan: Last BP 144/86. Subjective Date/time seen: 07/28/19 0915 Interval history: Mr. Redman is a 69yo M admitted for cholecystitis and A fib RVR. Nursing noted he had become agitated and confused overnight. He is a bit drowsy on my encounter but is actually oriented. He denies any chest pain or shortness of breath. He is having a bit of trouble clearing secretions. He notes that he sometimes uses oxygen at home. He reports right
--- NOTE | 2019-07-28 10:57 | PM.PNGS ---
Progress Note: A&P Assessment and Plan (1) Acute cholecystitis: Code(s): K81.0 - Acute cholecystitis Status: Acute Assessment and Plan: exam improved, cont abx for now, poor surgical candidate at this point, will need perc cholecystosotmy if needs further intervention (2) Atrial fibrillation with rapid ventricular response: Code(s): I48.91 - Unspecified atrial fibrillation Status: Acute Assessment and Plan: cont gtt per cardiology (3) Chronic alcohol use: Code(s): Z72.89 - Other problems related to lifestyle Status: Acute Assessment and Plan: currently exhibiting ETOH withdrawl symptomatology, mgmt per primary team, no plans for emergent surgery at this point Subjective Subjective Date/Time Seen: 07/28/19 10:57 Pt is much more confused, delerious today. Pt had to be restarted on Diltiazam gtt for Afib. Pt currently sommulent and not answering questions, but denies any abd pain, nausea. Review of Systems Review of Systems: ROS unobtainable: Yes unobtainable due to mental status Exam Const: General: no acute distress Resp: Auscultation: clear to auscultation bilaterally Cardio: Other: irr, irr GI: Other: obese, soft, sl dist, mild TTP RUQ Objective Data Vital Signs Vital Signs: Vital Signs - 24 hr 07/27/19 12:00 07/27/19 12:13 07/27/19 13:30 Temperature 36.3 C L Pulse Rate 85 72 94 Pulse Rate [Monitor] Respiratory Rate 16 20 Blood Pressure 172/62 H Pulse Oximetry 99 07/27/19 13:35 07/27/19 13:37 07/27/19 14:00 Temperature Pulse Rate 103 H Pulse Rate [Monitor] Respiratory Rate 20 Blood Pressure Pulse Oximetry 96 93 07/27/19 16:00 07/27/19 16:40 07/27/19 19:37 Temperature 36.3 C L 36.4 C L Pulse Rate 85 108 H 113 H Pulse Rate [Monitor] Respiratory Rate 20 18 Blood Pressure 121/88 141/81 H Pulse Oximetry 97 93 07/27/19 19:51 07/27/19 19:54 07/27/19 19:56 Temperature Pulse Rate 118 H 115 H Pulse Rate [Monitor] Respiratory Rate 20 20 Blood Pressure Pulse Oximetry 94 07/27/19 20:00 07/27/19 20:02 07/27/19 22:00 Temperature Pulse Rate 120 H 120 H 134 H Pulse Rate [Monitor] 120 H Respiratory Rate Blood Pressure 141/81 H Pulse Oximetry 07/27/19 23:50 07/28/19 00:00 07/28/19 02:00 Temperature 36.7 C Pulse Rate 109 H 103 H 104 H Pulse Rate [Monitor] 103 H Respiratory Rate 22 H Blood Pressure 112/84 Pulse Oximetry 97 07/28/19 02:53 07/28/19 03:02 07/28/19 04:00 Temperature 36.7 C Pulse Rate 109 H 106 H 121 H Pulse Rate [Monitor] 107 H Respiratory Rate 20 20 20 Blood Pressure 137/88 Pulse Oximetry 98 07/28/19 06:00 07/28/19 08:00 07/28/19 09:20 Temperature 36.6 C Pulse Rate 120 H 118 H 139 H Pulse Rate [Monitor] Respiratory Rate 20 20 Blood Pressure 132/105 H Pulse Oximetry 95 07/28/19 09:28 07/28/19 09:29 07/28/19 10:50 Temperature Pulse Rate 123 H Pulse Rate [Monitor] Respiratory Rate 20 Blood Pressure 144/86 H Pulse Oximetry 92 Intake/Output Intake/Output: Intake & Output 07/25/19 07/26/19 07/27/19 07/28/19 23:59 23:59 23:59 23:59 Intake Total 1200 3760 1400 Output Total 30 625 1200 Balance 1170 3135 200 Meds/Results Medications: Active Medications Generic Name Dose Route Start Last Admin Trade Name Freq PRN Reason Stop Dose Admin Albuterol 2 puff 07/25/19 20:51 Proventil Hfa INHALATION QIDRT PRN Shortness Of Breath Aspirin 325 mg 07/26/19 09:00 07/26/19 08:08 Aspirin Ec PO 325 mg DAILY MONET Administration Carvedilol 12.5 mg 07/26/19 09:00 07/27/19 20:02 Coreg PO 12.5 mg Q12HR MONET Administration Chlordiazepoxide HCl 50 mg 07/28/19 09:00 07/28/19 09:30 Librium Po PO 50 mg Q6H MONET Administration Diltiazem HCl 360 mg 07/26/19 09:00 07/26/19 08:08 Cardizem Cd PO 08/25/19 09:01 360 mg DAILY MONET Administratio
--- NOTE | 2019-07-28 16:09 | PCPTNOTE ---
Patient session was unable to be completed this date. First attempt OT was starting exercises, second attempt patient was sleeping and unable to be woken with arousal. Will continue plan of care tomorrow.
[2019-07-28] MEDS: TERAZOSIN HCL 5 MG CAPSULE 10 MG PO (20:28)
[2019-07-29] VITALS (26 sets, daily range): BP systolic 129–149; BP diastolic 80–101; PULSE 96–143; RESP 20–24; TEMP 35.8–36.9; O2SAT 83–97
[2019-07-29] MEDS: LORAZEPAM INJ 2 MG/ML VIAL 1 MG IV PUSH ×3 (01:58→22:09)
[2019-07-29] MEDS: SODIUM CHLORIDE 0.9% IV 1,000 ML 75 ML IV CONT (01:59)
[2019-07-29] MEDS: CHLORDIAZEPOXIDE 25 MG CAPSULE 50 MG PO ×2 (02:00→22:09)
[2019-07-29] MEDS: LEVALBUTEROL NEB 1.25 MG/3 ML 0.63 MG INHALATION ×4 (02:09→19:51)
[2019-07-29] MEDS: IPRATROPIUM BR 0.02% INH SOLN 0.5 MG/2.5 ML VIAL INHALATION ×4 (02:10→19:51)
[2019-07-29 05:14] LABS: Basophils Percent Auto 0.2 % (0.2-1.2); Eosinophils Percent Auto 0.1 % (0-4.4); Hematocrit 36.2 % (42.0-52.0); Hemoglobin 12.1 g/dL (14.0-18.0); Immature Granulocyte Percent A 1.6 % (0-0.5); Lymphocytes Absolute Auto 1.28 K/mm3 (0.9-3.2); Lymphocytes Percent Auto 10.4 % (18.3-44.2); Mean Corpuscular HGB Conc 33.4 g/dl (32-36); Mean Corpuscular Volume 104.6 fl (80-100); Mean Platelet Volume 10.4 fl (7.4-10.4); Monocytes Absolute Auto 0.5 K/mm3 (0.1-0.6); Monocytes Percent Auto 4.2 % (2.6-8.5); Neutrophils Absolute Auto 10.3 K/mm3 (1.3-6.7); Neutrophils Percent Auto 83.5 % (45.5-73.1); Platelet Count Result 224 k/mm3 (150-375); Red Blood Count 3.46 M/mm3 (4.6-6.20); Red Cell Distribution Width 12.7 % (11.5-14.5); White Blood Count 12.3 K/mm3 (4.5-10.0)
[2019-07-29 05:24] LABS: Blood Urea Nitrogen 17 mg/dL (9-20); Calcium 8.4 mg/dL (8.4-10.2); Carbon Dioxide 28 mmol/L (22-30); Chloride 105 mmol/L (98-107); Estimated CRCL calculation 96 ml/min; Estimated Glomerular Filt Rate > 60; Glucose 145 mg/dL (75-110); Magnesium 2.1 mg/dL (1.6-2.3); Phosphorus 3.4 mg/dL (2.5-4.5); Potassium 3.5 mmol/L (3.4-5.0); Sodium 135 mmol/L (137-145)
[2019-07-29] MEDS: metroNIDAZOLE 500 MG/ISO 100ML 500 MG/100 ML BAG 100 MG IVPB ×4 (06:28→23:21)
--- NOTE | 2019-07-29 07:30 | PCOTNOTE ---
Attempted to see patient for AM treatment session. Patient was very difficult to arouse, unable to participate at this time. Will try back at a later time.
--- NOTE | 2019-07-29 08:52 | P.PNIM_ITS ---
Progress Note: A&P Assessment and Plan (1) Acute cholecystitis: Code(s): K81.0 - Acute cholecystitis Status: Acute Assessment and Plan: * Appreciate surgery recommendations. Agree that he is a poor surgical candidate at this time. Noted Dr Gonzales's plan to continue antibiotics for now since he is improving and reevaluate if surgical intervention is necessary. * Continue ciprofloxacin and flagyl (day 4) and monitor. (2) Atrial fibrillation with rapid ventricular response: Code(s): I48.91 - Unspecified atrial fibrillation Status: Acute Assessment and Plan: * Management per cardiology - appreciate recommendations. Troponin negative x3, no chest pain. * Diltiazem IV increased, carvedilol held. His home regimen includes oral carvedilol and diltiazem. (3) Chronic alcohol use: Code(s): Z72.89 - Other problems related to lifestyle Status: Chronic Assessment and Plan: * Scheduled librium added yesterday due to agitation, will decrease dose as he is drowsy this AM and requiring more O2. * Initially 3 margaritas daily was reported, now coming to light that he may drink one bottle of tequila daily. * Continue monitoring with CIWA. * Continue folic acid and thiamine. (4) COPD exacerbation: Code(s): J44.1 - Chronic obstructive pulmonary disease with (acute) exacerbation Status: Acute Assessment and Plan: * Negative CTA 07/25. He continues on oral steroids and bronchodilator therapy. Increase frequency of inhalers to Q4. * Plan to add maintenance inhaler at discharge with suspected COPD, PFTs as outpatient. * Continued tobacco use which should be eliminated. He does not desire nicotine patch at this time. (5) Syncopal episodes: Qualifiers: Syncope type: unspecified Qualified Code(s): R55 - Syncope and collapse Code(s): R55 - Syncope and collapse Status: Acute Assessment and Plan: * Some inconsistencies in history reported. EMS report states they were called due to weakness, abdominal pain, and multiple recent ground-level falls and when they found him, he was sitting up in recliner alert and oriented x 4. * CT brain with no acute findings. ?mechanical falls 2/ etoh (6) Hypokalemia: Code(s): E87.6 - Hypokalemia Status: Acute Assessment and Plan: * Maintained on daily K replacement, will monitor. (7) Smoker: Code(s): F17.200 - Nicotine dependence, unspecified, uncomplicated Status: Chronic Assessment and Plan: * Patient will need to quit smoking. He denies the need for nicotine patch at this time. (8) GERD (gastroesophageal reflux disease): Qualifiers: Esophagitis presence: esophagitis presence not specified Qualified Code(s): K21.9 - Gastro-esophageal reflux disease without esophagitis Code(s): K21.9 - Gastro-esophageal reflux disease without esophagitis Status: Chronic Assessment and Plan: * Continue home Prevacid. (9) Essential hypertension: Code(s): I10 - Essential (primary) hypertension Status: Chronic Assessment and Plan: * Stable. Last BP 132/88. Subjective Date/time seen: 07/29/19 08:45 Interval history: Mr. Redman is a 69yo M admitted for cholecystitis and A fib with RVR. Nursing noted he is a b
--- NOTE | 2019-07-29 08:52 | PM.IMPN ---
Progress Note: A&P Assessment and Plan (1) Acute cholecystitis: Code(s): K81.0 - Acute cholecystitis Status: Acute Assessment and Plan: Appreciate surgery recommendations. Agree that he is a poor surgical candidate at this time. Noted Dr Gonzales's plan to continue antibiotics for now since he is improving and reevaluate if surgical intervention is necessary. Continue ciprofloxacin and flagyl (day 4) and monitor. (2) Atrial fibrillation with rapid ventricular response: Code(s): I48.91 - Unspecified atrial fibrillation Status: Acute Assessment and Plan: Management per cardiology - appreciate recommendations. Troponin negative x3, no chest pain. Diltiazem IV increased, carvedilol held. His home regimen includes oral carvedilol and diltiazem. (3) Chronic alcohol use: Code(s): Z72.89 - Other problems related to lifestyle Status: Chronic Assessment and Plan: Scheduled librium added yesterday due to agitation, will decrease dose as he is drowsy this AM and requiring more O2. Initially 3 margaritas daily was reported, now coming to light that he may drink one bottle of tequila daily. Continue monitoring with CIWA. Continue folic acid and thiamine. (4) COPD exacerbation: Code(s): J44.1 - Chronic obstructive pulmonary disease with (acute) exacerbation Status: Acute Assessment and Plan: Negative CTA 07/25. He continues on oral steroids and bronchodilator therapy. Increase frequency of inhalers to Q4. Plan to add maintenance inhaler at discharge with suspected COPD, PFTs as outpatient. Continued tobacco use which should be eliminated. He does not desire nicotine patch at this time. (5) Syncopal episodes: Qualifiers: Syncope type: unspecified Qualified Code(s): R55 - Syncope and collapse Code(s): R55 - Syncope and collapse Status: Acute Assessment and Plan: Some inconsistencies in history reported. EMS report states they were called due to weakness, abdominal pain, and multiple recent ground-level falls and when they found him, he was sitting up in recliner alert and oriented x 4. CT brain with no acute findings. ?mechanical falls 2/2 etoh (6) Hypokalemia: Code(s): E87.6 - Hypokalemia Status: Acute Assessment and Plan: Maintained on daily K replacement, will monitor. (7) Smoker: Code(s): F17.200 - Nicotine dependence, unspecified, uncomplicated Status: Chronic Assessment and Plan: Patient will need to quit smoking. He denies the need for nicotine patch at this time. (8) GERD (gastroesophageal reflux disease): Qualifiers: Esophagitis presence: esophagitis presence not specified Qualified Code(s): K21.9 - Gastro-esophageal reflux disease without esophagitis Code(s): K21.9 - Gastro-esophageal reflux disease without esophagitis Status: Chronic Assessment and Plan: Continue home Prevacid. (9) Essential hypertension: Code(s): I10 - Essential (primary) hypertension Status: Chronic Assessment and Plan: Stable. Last BP 132/88. Subjective Date/time seen: 07/29/19 08:45 Interval history: Mr. Redman is a 69yo M admitted for cholecystitis and A fib with RVR. Nursing noted he is a bit drowsy this morning now with increased oxygen requirement. At time of my assessment, he is drowsy but wakes to answer questions; nursing has been suctioning oral secretions. He denies any chest pain or abdominal pain this morning. No nausea or vomiting. Review of Systems Review of Systems: Narrative: Twelve systems were reviewed with pertinent positives and negatives as per HPI. Exam Narrative: Exam
--- NOTE | 2019-07-29 09:19 | PM.PNGS ---
Progress Note: A&P Assessment and Plan (1) Acute cholecystitis: Code(s): K81.0 - Acute cholecystitis Status: Acute Assessment and Plan: cont to treat c Cipro/Flagyl, pt s abd c/o at this time, WBC sl elevated, will cont to follow, high risk surgical candidate, if intervention necessary will need perc cholecystostomy (2) Atrial fibrillation with rapid ventricular response: Code(s): I48.91 - Unspecified atrial fibrillation Status: Acute Assessment and Plan: mgmt per cardiology (3) COPD exacerbation: Code(s): J44.1 - Chronic obstructive pulmonary disease with (acute) exacerbation Status: Acute Assessment and Plan: worsening resp failure, cont bronchodilators, etc, RT support (4) Chronic alcohol use: Code(s): Z72.89 - Other problems related to lifestyle Status: Chronic Assessment and Plan: ETOH w/d precautions Subjective Subjective Date/Time Seen: 07/29/19 09:19 Pt cont to be confused, sommulent. Pt noted to have increased respiratory difficulty, now requiring 6 L O2. Pt denies any abd pain, but has poor appetite. Pt denies N/V. Review of Systems Review of Systems: ROS unobtainable: Yes unobtainable due to mental status Exam Const: General: in distress moderate Resp: Auscultation: crackles, wheezes and diminished lung sounds Cardio: Rhythm: abnormal rhythm GI: Other: obses, soft, sl dist, minimal TTP epigatrium/RUQ Objective Data Vital Signs Vital Signs: Vital Signs - 24 hr 07/28/19 09:20 07/28/19 09:28 07/28/19 09:29 Temperature Pulse Rate 139 H 123 H Pulse Rate [Bilateral Pedal (Dorsalis Pedis) Palpation] Respiratory Rate 20 20 Blood Pressure Pulse Oximetry 92 07/28/19 10:00 07/28/19 10:50 07/28/19 12:00 Temperature 36.9 C Pulse Rate 127 H 96 Pulse Rate [Bilateral Pedal (Dorsalis Pedis) Palpation] Respiratory Rate 20 Blood Pressure 144/86 H 128/78 Pulse Oximetry 95 07/28/19 13:40 07/28/19 13:50 07/28/19 14:00 Temperature Pulse Rate 122 H 125 H 116 H Pulse Rate [Bilateral Pedal (Dorsalis Pedis) Palpation] Respiratory Rate 20 20 Blood Pressure Pulse Oximetry 07/28/19 16:00 07/28/19 18:00 07/28/19 19:46 Temperature 36.4 C Pulse Rate 94 111 H 110 H Pulse Rate [Bilateral Pedal (Dorsalis Pedis) Palpation] Respiratory Rate 18 20 Blood Pressure 127/78 Pulse Oximetry 94 93 07/28/19 19:56 07/28/19 20:00 07/28/19 22:00 Temperature 36.7 C Pulse Rate 124 H 113 H 125 H Pulse Rate [Bilateral Pedal (Dorsalis Pedis) Palpation] 124 H Respiratory Rate 20 Blood Pressure 150/91 H 150/91 H Pulse Oximetry 95 07/28/19 23:50 07/29/19 00:00 07/29/19 02:00 Temperature 36.6 C Pulse Rate 112 H 103 H 112 H Pulse Rate [Bilateral Pedal (Dorsalis Pedis) Palpation] 112 H Respiratory Rate 22 H Blood Pressure 130/100 H 130/100 H Pulse Oximetry 94 07/29/19 02:10 07/29/19 04:00 07/29/19 06:00 Temperature 36.6 C Pulse Rate 117 H 101 H 132 H Pulse Rate [Bilateral Pedal (Dorsalis Pedis) Palpation] 101 H Respiratory Rate 22 H 20 Blood Pressure 129/100 H Pulse Oximetry 94 07/29/19 08:00 Temperature 35.8 C L Pulse Rate 123 H Pulse Rate [Bilateral Pedal (Dorsalis Pedis) Palpation] Respiratory Rate 20 Blood Pressure 132/88 Pulse Oximetry 83 L Intake/Output Intake/Output: Intake & Output 07/26/19 07/27/19 07/28/19 07/29/19 23:59 23:59 23:59 23:59 Intake Total 1200 3760 2783 717 Output Total 30 625 1775 350 Balance 1170 3135 1008 367 Meds/Results Medications: Active Medications Generic Name Dose Route Start Last Admin Trade Name Freq PRN Reason Stop Dose Admin Aspirin 325 mg 07/26/19 09:00 07/26/19 08:08 Aspirin Ec PO 325 mg DAILY MONET Administration Carvedilol 12.5 mg 07/26/19 09:00 07/28/19 18:36 Coreg PO Not Given Q12HR MONET Chlordiazepoxide HCl 25 mg 07/29/19 09:00 Librium Po PO Q6H MONET
--- NOTE | 2019-07-29 09:36 | PM.PNCARD ---
Progress Note: A&P Additional Plan Will increase his dose of diltiazem to provide better heart rate control. Patient's outpatient regimen includes diltiazem at 360 mg daily which is a much higher dose than he is currently receiving intravenously. Agree with surgery that he has a very high risk candidate for surgical intervention at this time Treatment of ethanol withdrawal per the primary team When it is clear that he is capable of taking p.o. medications and not going to require any sort of an operation/procedure of his gallbladder will be shifted to oral diltiazem. He is a very high risk candidate for systemic anticoagulation in my opinion Subjective Date/time seen: Date of service: 07/29/19 09:36 Interval history: Follow-up visit in this 69-year-old man with atrial fibrillation of unknown duration. Patient is also hospitalized with abdominal pain felt to have acute cholecystitis and also now is having picture of acute alcohol withdrawal IV diltiazem resumed earlier this morning at low dosage heart rate is in the 115 range. Exam Const: General: no acute distress HENMT: Mouth: Yes dry mucous membranes Eyes: Sclera: sclerae normal Pupils: Equal, round and reactive pupils present Neck: Neck: supple and no JVD Thyroid: thyroid normal Resp: Other: Diffuse expiratory wheezing/rhonchi in both lung herrera Cardio: Rate: tachycardic Rhythm: abnormal rhythm irregularly irregular GI: Auscultation: normal bowel sounds Skin: General skin exam: normal color Neuro: Other: Patient is lethargic but upon awakening response to questions appropriately Objective Data Vital Signs Vital Signs: Vital Signs - 24 hr 07/28/19 10:00 07/28/19 10:50 07/28/19 12:00 Temperature 36.9 C Pulse Rate 127 H 96 Pulse Rate [Bilateral Pedal (Dorsalis Pedis) Palpation] Respiratory Rate 20 Blood Pressure 144/86 H 128/78 Pulse Oximetry 95 07/28/19 13:40 07/28/19 13:50 07/28/19 14:00 Temperature Pulse Rate 122 H 125 H 116 H Pulse Rate [Bilateral Pedal (Dorsalis Pedis) Palpation] Respiratory Rate 20 20 Blood Pressure Pulse Oximetry 07/28/19 16:00 07/28/19 18:00 07/28/19 19:46 Temperature 36.4 C Pulse Rate 94 111 H 110 H Pulse Rate [Bilateral Pedal (Dorsalis Pedis) Palpation] Respiratory Rate 18 20 Blood Pressure 127/78 Pulse Oximetry 94 93 07/28/19 19:56 07/28/19 20:00 07/28/19 22:00 Temperature 36.7 C Pulse Rate 124 H 113 H 125 H Pulse Rate [Bilateral Pedal (Dorsalis Pedis) Palpation] 124 H Respiratory Rate 20 Blood Pressure 150/91 H 150/91 H Pulse Oximetry 95 07/28/19 23:50 07/29/19 00:00 07/29/19 02:00 Temperature 36.6 C Pulse Rate 112 H 103 H 112 H Pulse Rate [Bilateral Pedal (Dorsalis Pedis) Palpation] 112 H Respiratory Rate 22 H Blood Pressure 130/100 H 130/100 H Pulse Oximetry 94 07/29/19 02:10 07/29/19 04:00 07/29/19 06:00 Temperature 36.6 C Pulse Rate 117 H 101 H 132 H Pulse Rate [Bilateral Pedal (Dorsalis Pedis) Palpation] 101 H Respiratory Rate 22 H 20 Blood Pressure 129/100 H Pulse Oximetry 94 07/29/19 08:00 Temperature 35.8 C L Pulse Rate 123 H Pulse Rate [Bilateral Pedal (Dorsalis Pedis) Palpation] Respiratory Rate 20 Blood Pressure 132/88 Pulse Oximetry 83 L Intake/Output Intake/Output: Intake & Output 07/26/19 07/27/19 07/28/19 07/29/19 23:59 23:59 23:59 23:59 Intake Total 1200 3760 2783 717 Output Total 30 625 1775 350 Balance 1170 3135 1008 367 Meds/Results Medications: Active Medications Generic Name Dose Route Start Last Admin Trade Name Mendozaq PRN Reason Stop Dose Admin Aspirin 325 mg 07/26/19 09:00 07/26/19 08:08 Aspirin Ec PO 325 mg DAILY MONET Administration Carvedilol 12.5 mg 07/26/19 09:00 07/28/19 18:36 Coreg PO Not Given Q12HR MONET Chlordiazepoxide HCl 25 mg 07/29/19 09:00 Librium Po PO Q6H MONET Diltiazem HCl 360 mg 07/26/19 09:00 07/26/19 08:08 Cardize
[2019-07-29 09:47] LABS: Alveolar/Arterial O2 Gradient 194.5 mmHg; Carboxyhemoglobin 0.3 % THb (0-2.0); Fractional Inspired Oxygen 44 %; HCO3 ABG 27.7 mEq/l (22.0-26.0); Methemoglobin ABG 0.3 %THb (0-1.5); Oxygen Saturation ABG 94.5 % (95.0-100.0); PCO2 ABG 42.8 mmHg (35.0-45.0); PO2 ABG 70.4 mmHg (80.0-100.0); Reduced Hemoglobin 7.4 %THb (0-5.0); Total Hemoglobin 13.1 g/dL (12.0-18.0); pH ABG 7.429 (7.350-7.450)
[2019-07-29 09:48] LABS: Device NASAL CANNULA; Site Drawn LEFT BRACHIAL
[2019-07-29] MEDS: CHOLECALCIFEROL 1,000 UNIT TABLET 5000 UNITS PO (09:56)
[2019-07-29] MEDS: predniSONE 20 MG TABLET 40 MG PO (09:56)
[2019-07-29] MEDS: POTASSIUM CHLORIDE 10 MEQ TABLET.ER 40 MEQ PO (09:56)
[2019-07-29] MEDS: THIAMINE HCL 100 MG TABLET PO (09:56)
[2019-07-29] MEDS: PRAVASTATIN SODIUM 20 MG TABLET 40 MG PO (09:56)
[2019-07-29] MEDS: FOLIC ACID 1 MG TABLET PO (09:57)
[2019-07-29] MEDS: LANSOPRAZOLE ORAL SUSP 30 MG/10 ML ORAL.SUSP PO (09:58)
[2019-07-29] MEDS: CIPROFLOXACIN 400 MG/D5W 200ML 200 ML 200 MG IVPB ×2 (09:58→20:08)
--- NOTE | 2019-07-29 15:04 | PCPTNOTE ---
P[place]w. attempted to see however patient not following directions to participate. Patient verbalizes he would like to get up but does not follow through with activity.
[2019-07-29] MEDS: TERAZOSIN HCL 5 MG CAPSULE 10 MG PO (20:09)
[2019-07-29] MEDS: SODIUM CHLORIDE 0.9% IV 1,000 ML 50 ML IV CONT (20:10)
[2019-07-30] VITALS (30 sets, daily range): BP systolic 126–168; BP diastolic 88–108; PULSE 60–139; RESP 20–28; TEMP 35.5–36.6; O2SAT 90–95
[2019-07-30] MEDS: LORAZEPAM INJ 2 MG/ML VIAL 1 MG IV PUSH ×2 (00:21→02:22)
[2019-07-30] MEDS: LEVALBUTEROL NEB 1.25 MG/3 ML 0.63 MG INHALATION ×7 (04:34→22:50)
[2019-07-30] MEDS: IPRATROPIUM BR 0.02% INH SOLN 0.5 MG/2.5 ML VIAL INHALATION ×7 (04:35→22:50)
[2019-07-30 04:51] LABS: Basophils Percent Auto 0.3 % (0.2-1.2); Hematocrit 36.2 % (42.0-52.0); Hemoglobin 12.7 g/dL (14.0-18.0); Immature Granulocyte Absolute 0.21 K/mm3 (0.00-0.031); Immature Granulocyte Percent A 2.3 % (0-0.5); Lymphocytes Absolute Auto 1.27 K/mm3 (0.9-3.2); Lymphocytes Percent Auto 13.8 % (18.3-44.2); Mean Corpuscular HGB Conc 35.1 g/dl (32-36); Mean Corpuscular Hemoglobin 36.3 pg (26-34); Mean Corpuscular Volume 103.4 fl (80-100); Mean Platelet Volume 9.8 fl (7.4-10.4); Monocytes Absolute Auto 0.5 K/mm3 (0.1-0.6); Monocytes Percent Auto 5.1 % (2.6-8.5); Neutrophils Absolute Auto 7.2 K/mm3 (1.3-6.7); Neutrophils Percent Auto 78.5 % (45.5-73.1); Platelet Count Result 235 k/mm3 (150-375); Red Cell Distribution Width 12.5 % (11.5-14.5); White Blood Count 9.2 K/mm3 (4.5-10.0)
[2019-07-30 05:13] LABS: Alanine Aminotransferase 16 U/L (4-50); Albumin Level 2.5 g/dL (3.5-5.1); Alkaline Phosphatase 101 U/L (38-126); Aspartate Amino Transferase 40 U/L (17-59); Bilirubin,Total 0.5 mg/dL (0.2-1.3); Blood Urea Nitrogen 17 mg/dL (9-20); Calcium 8.5 mg/dL (8.4-10.2); Carbon Dioxide 29 mmol/L (22-30); Chloride 106 mmol/L (98-107); Estimated CRCL calculation 126 ml/min; Estimated Glomerular Filt Rate > 60; Glucose 137 mg/dL (75-110); Phosphorus 3.9 mg/dL (2.5-4.5); Sodium 134 mmol/L (137-145)
[2019-07-30] MEDS: metroNIDAZOLE 500 MG/ISO 100ML 500 MG/100 ML BAG 100 MG IVPB ×3 (05:51→18:46)
--- NOTE | 2019-07-30 07:33 | PM.PNGS ---
Progress Note: A&P Assessment and Plan (1) Acute cholecystitis: Code(s): K81.0 - Acute cholecystitis Status: Acute Assessment and Plan: seems to be resolving c conservative measures, exam benign, WBC normal, cont abx for total of 7-10 days, no plans for acute surgical intervention at this point, can followup as outpt, will sign off, please call c ?s, issues (2) Atrial fibrillation with rapid ventricular response: Code(s): I48.91 - Unspecified atrial fibrillation Status: Acute Assessment and Plan: can management per cardiology (3) Chronic alcohol use: Code(s): Z72.89 - Other problems related to lifestyle Status: Chronic Assessment and Plan: ETOH withdraw precautions (4) COPD exacerbation: Code(s): J44.1 - Chronic obstructive pulmonary disease with (acute) exacerbation Status: Acute Assessment and Plan: O2 requirements seem to have stabilized, cont current mgmt Subjective Subjective Date/Time Seen: 07/30/19 07:33 Pt sommulent this morning. Pt apparently very agitated overnight and had to be sedated. Pt was arousable and denied any abdominal pain. Review of Systems Review of Systems: ROS unobtainable: Yes unobtainable due to mental status Exam Const: General: no acute distress Resp: Auscultation: diminished lung sounds Cardio: Rhythm: abnormal rhythm GI: Other: obese, soft, sl dist, NT Objective Data Vital Signs Vital Signs: Vital Signs - 24 hr 07/29/19 08:00 07/29/19 09:48 07/29/19 09:52 Temperature 35.8 C L Pulse Rate 120 H 114 H Pulse Rate [Bilateral Pedal (Dorsalis Pedis) Palpation] Respiratory Rate 20 20 Blood Pressure 132/88 Pulse Oximetry 83 L 94 07/29/19 09:55 07/29/19 10:00 07/29/19 12:00 Temperature 36.2 C L Pulse Rate 128 H 122 H 114 H Pulse Rate [Bilateral Pedal (Dorsalis Pedis) Palpation] Respiratory Rate 22 H 20 Blood Pressure 149/101 H Pulse Oximetry 94 07/29/19 12:13 07/29/19 12:23 07/29/19 14:00 Temperature Pulse Rate 122 H 108 H 127 H Pulse Rate [Bilateral Pedal (Dorsalis Pedis) Palpation] Respiratory Rate 24 H 20 Blood Pressure Pulse Oximetry 07/29/19 16:00 07/29/19 16:32 07/29/19 16:43 Temperature 36.1 C L Pulse Rate 96 114 H 111 H Pulse Rate [Bilateral Pedal (Dorsalis Pedis) Palpation] Respiratory Rate 20 20 20 Blood Pressure 137/80 Pulse Oximetry 97 07/29/19 18:00 07/29/19 19:52 07/29/19 19:53 Temperature 36.9 C Pulse Rate 103 H 104 H 119 H Pulse Rate [Bilateral Pedal (Dorsalis Pedis) Palpation] Respiratory Rate 20 20 Blood Pressure 142/92 H Pulse Oximetry 95 07/29/19 20:00 07/29/19 20:01 07/29/19 20:03 Temperature Pulse Rate 111 H 117 H Pulse Rate [Bilateral Pedal (Dorsalis Pedis) Palpation] 143 H Respiratory Rate 20 Blood Pressure Pulse Oximetry 95 07/29/19 22:00 07/29/19 23:21 07/29/19 23:42 Temperature 36.8 C Pulse Rate 107 H 114 H 118 H Pulse Rate [Bilateral Pedal (Dorsalis Pedis) Palpation] 118 H Respiratory Rate 20 Blood Pressure 137/85 Pulse Oximetry 93 07/30/19 00:00 07/30/19 00:11 07/30/19 01:53 Temperature Pulse Rate 123 H 116 H 111 H Pulse Rate [Bilateral Pedal (Dorsalis Pedis) Palpation] Respiratory Rate 24 H 24 H Blood Pressure Pulse Oximetry 07/30/19 03:55 07/30/19 04:00 07/30/19 04:35 Temperature 36.6 C Pulse Rate 110 H 121 H 120 H Pulse Rate [Bilateral Pedal (Dorsalis Pedis) Palpation] 110 H Respiratory Rate 20 24 H Blood Pressure 147/98 H Pulse Oximetry 92 07/30/19 04:43 07/30/19 05:29 Temperature Pulse Rate 125 H 130 H Pulse Rate [Bilateral Pedal (Dorsalis Pedis) Palpation] Respiratory Rate 24 H Blood Pressure Pulse Oximetry Intake/Output Intake/Output: Intake & Output 07/27/19 07/28/19 07/29/19 07/30/19 23:59 23:59 23:59 23:59 Intake Total 3760 2783 2667 300 Output Total 678 3886 700 300 Balance 4161
[2019-07-30] MEDS: CIPROFLOXACIN 400 MG/D5W 200ML 200 ML 200 MG IVPB ×2 (08:42→20:42)
--- NOTE | 2019-07-30 09:14 | P.PNIM_ITS ---
Progress Note: A&P Assessment and Plan (1) Chronic alcohol use: Code(s): Z72.89 - Other problems related to lifestyle Status: Chronic Assessment and Plan: * Continue librium today while awake if he is agitated. * Initially 3 margaritas daily was reported, now coming to light that he may drink one bottle of tequila daily. * Continue monitoring with CIWA. Continue folic acid and thiamine. (2) Atrial fibrillation with rapid ventricular response: Code(s): I48.91 - Unspecified atrial fibrillation Status: Acute Assessment and Plan: * Management per cardiology - appreciate recommendations. Troponin negative x3, no chest pain. * Diltiazem IV increased yesterday, carvedilol held. His home regimen includes oral carvedilol and diltiazem. * Rates a bit improved this morning from days prior. (3) Acute cholecystitis: Code(s): K81.0 - Acute cholecystitis Status: Acute Assessment and Plan: * Appreciate surgery recommendations. Agree that he is a poor surgical candidate at this time. Noted Dr Gonzales's plan to continue medical management with antibiotics for now since he is improving and reevaluate if surgical intervention is necessary. * Continue ciprofloxacin and flagyl (day 5) and monitor. (4) COPD exacerbation: Code(s): J44.1 - Chronic obstructive pulmonary disease with (acute) exacerbation Status: Acute Assessment and Plan: * Negative CTA 07/25. He continues on oral steroids and bronchodilator therapy. Increased frequency of inhalers to Q4. * Plan to add maintenance inhaler at discharge with suspected COPD, PFTs as outpatient. * Continued tobacco use which should be eliminated. He does not desire nicotine patch at this time. * Seems to be breathing easier today than yesterday. (5) Syncopal episodes: Qualifiers: Syncope type: unspecified Qualified Code(s): R55 - Syncope and collapse Code(s): R55 - Syncope and collapse Status: Acute Assessment and Plan: * Some inconsistencies in history reported. EMS report states they were called due to weakness, abdominal pain, and multiple recent ground-level falls and when they found him, he was sitting up in recliner alert and oriented x 4. * CT brain with no acute findings. ?mechanical falls 2/2 etoh (6) Hypokalemia: Code(s): E87.6 - Hypokalemia Status: Acute Assessment and Plan: * Stable today 4.0. Maintained on daily K replacement, will monitor. (7) Smoker: Code(s): F17.200 - Nicotine dependence, unspecified, uncomplicated Status: Chronic Assessment and Plan: * Patient will need to quit smoking. He denies the need for nicotine patch at this time. (8) GERD (gastroesophageal reflux disease): Qualifiers: Esophagitis presence: esophagitis presence not specified Qualified Code(s): K21.9 - Gastro-esophageal reflux disease without esophagitis Code(s): K21.9 - Gastro-esophageal reflux disease without esophagitis Status: Chronic Assessment and Plan: * Continue home Prevacid. (9) Essential hypertension: Code(s): I10 - Essential (primary) hypertension Status: Chronic Assessment and Plan: * Last BP 156/89. Subjective Date/time seen: 07/30/19 09:00 Interval history:
--- NOTE | 2019-07-30 09:14 | PM.IMPN ---
Progress Note: A&P Assessment and Plan (1) Chronic alcohol use: Code(s): Z72.89 - Other problems related to lifestyle Status: Chronic Assessment and Plan: Continue librium today while awake if he is agitated. Initially 3 margaritas daily was reported, now coming to light that he may drink one bottle of tequila daily. Continue monitoring with CIWA. Continue folic acid and thiamine. (2) Atrial fibrillation with rapid ventricular response: Code(s): I48.91 - Unspecified atrial fibrillation Status: Acute Assessment and Plan: Management per cardiology - appreciate recommendations. Troponin negative x3, no chest pain. Diltiazem IV increased yesterday, carvedilol held. His home regimen includes oral carvedilol and diltiazem. Rates a bit improved this morning from days prior. (3) Acute cholecystitis: Code(s): K81.0 - Acute cholecystitis Status: Acute Assessment and Plan: Appreciate surgery recommendations. Agree that he is a poor surgical candidate at this time. Noted Dr Gonzales's plan to continue medical management with antibiotics for now since he is improving and reevaluate if surgical intervention is necessary. Continue ciprofloxacin and flagyl (day 5) and monitor. (4) COPD exacerbation: Code(s): J44.1 - Chronic obstructive pulmonary disease with (acute) exacerbation Status: Acute Assessment and Plan: Negative CTA 07/25. He continues on oral steroids and bronchodilator therapy. Increased frequency of inhalers to Q4. Plan to add maintenance inhaler at discharge with suspected COPD, PFTs as outpatient. Continued tobacco use which should be eliminated. He does not desire nicotine patch at this time. Seems to be breathing easier today than yesterday. (5) Syncopal episodes: Qualifiers: Syncope type: unspecified Qualified Code(s): R55 - Syncope and collapse Code(s): R55 - Syncope and collapse Status: Acute Assessment and Plan: Some inconsistencies in history reported. EMS report states they were called due to weakness, abdominal pain, and multiple recent ground-level falls and when they found him, he was sitting up in recliner alert and oriented x 4. CT brain with no acute findings. ?mechanical falls 2/ etoh (6) Hypokalemia: Code(s): E87.6 - Hypokalemia Status: Acute Assessment and Plan: Stable today 4.0. Maintained on daily K replacement, will monitor. (7) Smoker: Code(s): F17.200 - Nicotine dependence, unspecified, uncomplicated Status: Chronic Assessment and Plan: Patient will need to quit smoking. He denies the need for nicotine patch at this time. (8) GERD (gastroesophageal reflux disease): Qualifiers: Esophagitis presence: esophagitis presence not specified Qualified Code(s): K21.9 - Gastro-esophageal reflux disease without esophagitis Code(s): K21.9 - Gastro-esophageal reflux disease without esophagitis Status: Chronic Assessment and Plan: Continue home Prevacid. (9) Essential hypertension: Code(s): I10 - Essential (primary) hypertension Status: Chronic Assessment and Plan: Last BP 156/89. Subjective Date/time seen: 07/30/19 09:00 Interval history: Mr. Redman is a 69yo M admitted for cholecystitis and A fib with RVR, etoh withdrawal. He was agitated last night, sleeping comfortably this morning. No evidence of respiratory distress. Patient not woken up for ROS as he has been agitated. Called patient's for an update. Review of Systems Review of Systems: ROS unobtainable: Yes unobtainable due to medical condition Exam Narrative: Exam Narrative: G
--- NOTE | 2019-07-30 10:14 | PCPTNOTE ---
PT attempted to see patient this A.M.. RN reports patient had a very restless night and is sleeping at this time. PT will attempt therapy later in the day.
--- NOTE | 2019-07-30 11:04 | PM.PNCARD ---
Progress Note: A&P Assessment and Plan (1) Atrial fibrillation with rapid ventricular response: Code(s): I48.91 - Unspecified atrial fibrillation Status: Acute Assessment and Plan: Echocardiogram: Left ventricular chamber dimension is normal. Left ventricular systolic function is mildly reduced, estimated at 45-50%. There is mild mitral valve regurgitation. . There is mild aortic valve sclerosis. Biatrial dilation. His outpatient regimen includes diltiazem at 360 mg daily which is a much higher dose than he is currently receiving intravenously. Diltiazem drip increased to 10 mg/hr yesterday by Dr. Monahan. Heart rates generally in the 105 to 120 range. He is a very high risk candidate for surgical intervention at this time. Surgery is medically managing his cholecystitis at this time. When it is clear that he is capable of taking p.o. medications and not going to require any sort of an operation/procedure of his gallbladder will be shifted to oral diltiazem. He is a very high risk candidate for systemic anticoagulation given his alcohol abuse. Alcohol withdrawal management per hospitalist. Additional Plan Plan discussed with Dr Garzon 1125 07/30/2019 Time Spent With Patient Time with patient: less than 15 minutes Subjective Date/time seen: 07/30/19 11:04 Interval history: Follow-up for: atrial fibrillation of unknown duration. Date of service: 07/30/2019. Subjective: Sedated. Not waking up enough to have conversation Review of Systems Review of Systems: ROS unobtainable: Yes unobtainable due to mental status Exam Const: General: other (Sedated due to agitation last night. Not awake enough to have conversation) Other: Able to lie flat HENMT: General nose exam: Normal nares present and no epistaxis Mouth: Yes moist mucous membranes Eyes: Sclera: sclerae normal Pupils: Equal, round and reactive pupils present Neck: Neck: supple Other: Exam for JVD difficult as he is somewhat overweight with a thick neck Chest: Chest palpation & inspection: normal inspection of the chest Resp: Effort & Inspection: normal respiratory effort and tachypneic (respirations 24) Auscultation: rhonchi and wheezes expiratory wheezes and throughout Cardio: Rate: tachycardic Rhythm: abnormal rhythm irregularly irregular Heart sounds: no gallops, no murmurs and no rubs GI: Auscultation: normal bowel sounds Urinary Catheter: Urinary Catheter: urine dark Skin: General skin exam: normal color, rashes and/or lesions noted and no erythema Neuro: General: other (Sedated. Not waking up enough to have conversation) Extrem: General: no edema Psych: Appearance: disheveled Objective Data Vital Signs Vital Signs: Vital Signs - 24 hr 07/29/19 12:00 07/29/19 12:13 07/29/19 12:23 Temperature 36.2 C L Pulse Rate 114 H 122 H 108 H Pulse Rate [Bilateral Pedal (Dorsalis Pedis) Palpation] Respiratory Rate 20 24 H 20 Blood Pressure 149/101 H Pulse Oximetry 94 07/29/19 14:00 07/29/19 16:00 07/29/19 16:32 Temperature 36.1 C L Pulse Rate 127 H 96 114 H Pulse Rate [Bilateral Pedal (Dorsalis Pedis) Palpation] Respiratory Rate 20 20 Blood Pressure 137/80 Pulse Oximetry 97 07/29/19 16:43 07/29/19 18:00 07/29/19 19:52 Temperature Pulse Rate 111 H 103 H 104 H Pulse Rate [Bilateral Pedal (Dorsalis Pedis) Palpation] Respiratory Rate 20 20 Blood Pressure Pulse Oximetry 07/29/19 19:53 07/29/19 20:00 07/29/19 20:01 Temperature 36.9 C Pulse Rate 119 H 111 H 117 H Pulse Rate [Bilateral Pedal (Dorsalis Pedis) Palpation] 143 H Respiratory Rate 20 20 Blood Pressure 142/92 H Pulse Oximetry 95 07/29/19 20:03 07/29/19 22:00 07/29/19 23:21 Temperature 36.8 C Pulse Rate 107 H 114 H Pulse Rate [Bilateral Pedal (Dorsalis Pedis) Palpation] Respiratory Rate 20 Blood Pressure 137/85 Pulse Oximetry 95 93 07/29/19 23:42 07/30/19 00:0
--- NOTE | 2019-07-30 13:28 | PCPTNOTE ---
The PT treatment was unable to be completed this afternoon due to patient condition. Will continue per Plan of Care frequency and duration.
--- NOTE | 2019-07-30 13:57 | PCOTNOTE ---
Attempted to see patient this date, however per nursing patient unable to participate due to medication.
--- NOTE | 2019-07-30 14:25 | ED.GENADULT ---
HPI - General Adult General Chief complaint: Weakness Stated complaint: generalized weakness/ falls Time Seen by Provider: 07/25/19 20:33 Related Data Home Medications Medication Instructions Recorded Confirmed aspirin 325 mg PO DAILY 07/25/19 07/25/19 carvedilol 12.5 mg PO BID 07/25/19 07/25/19 cholecalciferol (vitamin D3) 125 mcg PO DAILY 07/25/19 07/25/19 [Vitamin D3] diltiazem HCl 360 mg PO DAILY 07/25/19 07/25/19 lansoprazole 30 mg PO DAILY 07/25/19 07/25/19 olmesartan-hydrochlorothiazide 1 tablet PO DAILY 07/25/19 07/25/19 potassium chloride 10 meq PO DAILY 07/25/19 07/25/19 pravastatin 40 mg PO QAM 07/25/19 07/25/19 terazosin 10 mg PO HS 07/25/19 07/25/19 Allergies Allergy/AdvReac Type Severity Reaction Status Date / Time Penicillins Allergy Severe Hives / Verified 07/25/19 23:36 Red Face PMFSH Past Medical History Medical History CHF (congestive heart failure) Essential hypertension GERD (gastroesophageal reflux disease) Histoplasmosis History of BPH History of TIAs Hyperlipidemia Vitamin D deficiency Surgical History Surgical History History of bilateral cataract extraction History of vasectomy Male circumcision Family History Family History Sibling Polio Father Lung cancer Mother Hypertension Social History Social History Social History: Patient drinks (3) 4 oz drinks of Tequila a day, smokes a pack and half a day for 55 years, would like to be a full code. Surrogate decision maker is Raine phone number [phone]. Smoking packs per day: 1.5 Smoking cigarettes per day: 30.0 Years smoked: 54 Smoking pack-years: 81.00 Smoking status: Current every day smoker Tobacco type: cigarettes Alcohol intake: current Drinks per week: 28 Alcohol use details: Patient's last drink was around noon on 07/25/2019 with. Substance use: former Substance use type: marijuana Last use: 1970 Living arrangements: with family Additional living arrangements comments: He lives at home with his . Occupation/Education: retired Gender identity (if verbalized by the patient): Male Spiritual care concerns: No Agree to blood products: No Course Vital Signs Vital signs: Vital Signs Temperature 98.7 F 07/25/19 20:24 Pulse Rate 154 H 07/25/19 20:24 Respiratory Rate 27 H 07/25/19 20:24 Blood Pressure 125/100 H 07/25/19 20:24 Pulse Oximetry 97 07/25/19 20:24 Temperature 97 F L 07/30/19 08:00 Pulse Rate 111 H 07/30/19 13:17 Respiratory Rate 20 07/30/19 13:17 Blood Pressure 126/108 H 07/30/19 12:00 Pulse Oximetry 92 07/30/19 09:33 Medical Decision Making Vital Signs Vital Signs: Vital Signs Temperature 98.7 F 07/25/19 20:24 Pulse Rate 154 H 07/25/19 20:24 Respiratory Rate 27 H 07/25/19 20:24 Blood Pressure 125/100 H 07/25/19 20:24 Pulse Oximetry 97 07/25/19 20:24 Temperature 97 F L 07/30/19 08:00 Pulse Rate 111 H 07/30/19 13:17 Respiratory Rate 20 07/30/19 13:17 Blood Pressure 126/108 H 07/30/19 12:00 Pulse Oximetry 92 07/30/19 09:33 Lab Data Result diagrams: 07/30/19 04:23 07/30/19 04:23 Labs: Lab Results 07/25/19 07/25/19 07/26/19 Range/Units 21:00 21:01 01:18 WBC 6.9 (4.5-10.0) K/mm3 RBC 3.66 L (4.6-6.20) M/mm3 Hgb 13.1 L (14.0-18.0) g/dL Hct 36.8 L (42.0-52.0) % MCV 100.5 H (80-100) fl MCH 35.8 H (26-34) pg MCHC 35.6 (32-36) g/dl RDW 12.4 (11.5-14.5) % Plt Count 138 L (150-375) k/mm3 MPV 10.8 H (7.4-10.4) fl Immature Gran % (Auto) 0.4 (0-0.5) % Neut % (Auto) 78.8 H (45.5-73.1) % Lymph % (Auto) 11.7 L (18.3-44.2) % Ogle % (Auto) 8.7 H (2.6-8.5) % Eos % (Aut
[2019-07-30] MEDS: TERAZOSIN HCL 5 MG CAPSULE 10 MG PO (20:37)
[2019-07-30] MEDS: CHLORDIAZEPOXIDE 25 MG CAPSULE 50 MG PO (20:37)
[2019-07-30] MEDS: FUROSEMIDE INJ 40 MG/4 ML VIAL 20 MG IV PUSH (21:55)
[2019-07-31] VITALS (29 sets, daily range): BP systolic 99–153; BP diastolic 52–96; PULSE 81–131; RESP 16–28; TEMP 36.1–36.9; O2SAT 90–98
[2019-07-31] MEDS: CHLORDIAZEPOXIDE 25 MG CAPSULE 50 MG PO (00:33)
[2019-07-31] MEDS: metroNIDAZOLE 500 MG/ISO 100ML 500 MG/100 ML BAG 100 MG IVPB ×5 (00:42→23:39)
[2019-07-31] MEDS: IPRATROPIUM BR 0.02% INH SOLN 0.5 MG/2.5 ML VIAL INHALATION ×6 (03:02→23:38)
[2019-07-31] MEDS: LEVALBUTEROL NEB 1.25 MG/3 ML 0.63 MG INHALATION ×6 (03:02→23:39)
[2019-07-31] MEDS: SODIUM CHLORIDE 0.9% IV 1,000 ML 50 ML IV CONT (04:36)
[2019-07-31 04:56] LABS: Blood Urea Nitrogen 14 mg/dL (9-20); Calcium 8.1 mg/dL (8.4-10.2); Carbon Dioxide 32 mmol/L (22-30); Chloride 101 mmol/L (98-107); Estimated CRCL calculation 108 ml/min; Estimated Glomerular Filt Rate > 60; Glucose 137 mg/dL (75-110); Magnesium 1.8 mg/dL (1.6-2.3); Phosphorus 3.9 mg/dL (2.5-4.5); Potassium 3.6 mmol/L (3.4-5.0); Sodium 134 mmol/L (137-145)
--- NOTE | 2019-07-31 07:15 | PCOTNOTE ---
Attempted to see Patient for OT treatment session this AM. Patient was unable/very difficult to arouse. Patient has had medication, unable to participate at this time. Will try back at a later time.
[2019-07-31] MEDS: CIPROFLOXACIN 400 MG/D5W 200ML 200 ML 200 MG IVPB ×2 (08:58→20:18)
[2019-07-31 10:48] LABS: Ammonia < 9 umol/L (9-30)
--- NOTE | 2019-07-31 11:16 | PCOTNOTE ---
pt. unable to arouse this date. multiple attempts made.
--- NOTE | 2019-07-31 11:17 | PM.PNCARD ---
Progress Note: A&P Assessment and Plan (1) Atrial fibrillation with rapid ventricular response: Code(s): I48.91 - Unspecified atrial fibrillation Status: Acute Assessment and Plan: Echocardiogram: Left ventricular chamber dimension is normal. Left ventricular systolic function is mildly reduced, estimated at 45-50%. There is mild mitral valve regurgitation. . There is mild aortic valve sclerosis. Biatrial dilation. Diltiazem drip at 20 milligrams/hour. Heart rate and blood pressure are controlled. When it is clear that he is capable of taking p.o. medications and not going to require any sort of an operation/procedure of his gallbladder he should be be shifted to oral diltiazem. He is a very high risk candidate for systemic anticoagulation given his alcohol abuse and reported falls. Rate control strategy at this time. Alcohol withdrawal management per hospitalist. Additional Plan Finally more alert and cooperative this morning. Lungs sound better this morning however very decreased in the right base. He is 7 L positive since admission. May need some furosemide today. Will leave that up to the hospitalist. Plan discussed with Dr. Monahan 1125 07/31/2019. Subjective Date/time seen: 07/31/19 11:17 Interval history: Follow-up for: atrial fibrillation of unknown duration. Date of service: 07/31/2019. Subjective: Sitting on the side of the bed working with physical therapy. Still mumbling and is difficult to understand. Denied pain or shortness of breath. Review of Systems Review of Systems: ROS unobtainable: Yes unobtainable due to mental status (Still mumbling and is difficult to understand.) Constitutional: Constitutional: Denies body ache(s) Eyes: Eyes: Reports loss of vision ENT: Reports dry mouth, Reports hearing loss and Denies epistaxis Cardiovascular: Cardiovascular: Denies chest pain Respiratory: Respiratory: Denies dyspnea Gastrointestinal: Gastrointestinal: Denies abdominal pain Genitourinary: Genitourinary: Denies hematuria Musculoskeletal: Musculoskeletal: Denies arthralgias Neurologic: Reports abnormal gait and Denies dizziness Psychiatric: Psychiatric: Reports memory loss Hematologic/Lymphatic: Hematologic/Lymphatic: Denies easy bruising Allergic/Immunologic: Allergic/Immunologic: Denies wheezing Exam Const: General: cooperative and no acute distress Nutritional Appearance: obese Orientation/consciousness: oriented to place Other: Able to lie flat HENMT: General nose exam: Normal nares present and no epistaxis Mouth: Yes moist mucous membranes Eyes: Sclera: scleral abnormality bilateral Pupils: Equal, round and reactive pupils present Neck: Neck: supple Thyroid: thyroid normal Carotids: no bruits Chest: Chest palpation & inspection: normal inspection of the chest Resp: Effort & Inspection: normal respiratory effort and tachypneic (respirations 24) Auscultation: no wheezes and diminished lung sounds on the right in the lower lung herrera Cardio: Rate: tachycardic Rhythm: abnormal rhythm irregularly irregular Heart sounds: no gallops, no murmurs and no rubs GI: Auscultation: normal bowel sounds Other: Patient has mild right upper quadrant abdominal pain Urinary Catheter: Urinary Catheter: urine dark Skin: General skin exam: normal color, rashes and/or lesions noted and no erythema Neuro: General: oriented to person, oriented to place and other (Mumbling. Difficult to understand at times.) Cranial nerves: Yes Equal, round and reactive pupils present Cognition (Neuro): abnormal cognition Speech: Abnormal speech present garbled Extrem: General: no edema Psych: Appearance: disheveled Attitude: cooperative Objective Data Vital Signs Vital Signs: Vital Signs - 24 hr 07/30/19 12:00 07/30/19 13:06 07/30/19 13:17 Temperature Pulse Rate 128 H 109 H 111 H Pulse Rate [Monitor] Respiratory Rate 20 20 Blood Pressur
--- NOTE | 2019-07-31 11:19 | PM.IMPN ---
Progress Note: A&P Assessment and Plan (1) Altered mental status: Qualifiers: Altered mental status type: unspecified Qualified Code(s): R41.82 - Altered mental status, unspecified Code(s): R41.82 - Altered mental status, unspecified Status: Acute Assessment and Plan: Larue to be associated with etoh withdrawal and benzodiazepines at this time. Repeat ammonia is normal, LFTs normal yesterday. Repeat urinalysis today is unremarkable. Recent ABG with no hypercapnia. CT brain on arrival with no acute findings. Hold benzos today if able and monitor. Seems to be a little more awake later this morning working with therapy. Discussed case with Dr Moura. (2) Chronic alcohol use: Code(s): Z72.89 - Other problems related to lifestyle Status: Chronic Assessment and Plan: Attempting to hold off on Librium and ativan today; lethargic, benzodiazpines may be contributing to decreased respiratory drive. Initially 3 margaritas daily was reported, now coming to light that he may drink one bottle of tequila daily. Continue monitoring with CIWA. Continue folic acid and thiamine. (3) Atrial fibrillation with rapid ventricular response: Code(s): I48.91 - Unspecified atrial fibrillation Status: Acute Assessment and Plan: Management per cardiology - appreciate recommendations. Diltiazem IV increased, carvedilol held. His home regimen includes oral carvedilol and diltiazem. Rates improved this AM. (4) Acute cholecystitis: Code(s): K81.0 - Acute cholecystitis Status: Acute Assessment and Plan: Appreciate surgery recommendations. Agree that he is a poor surgical candidate at this time. Noted Dr Gonzales's plan to continue medical management with antibiotics for now since he is improving and reevaluate if surgical intervention is necessary. Continue ciprofloxacin and flagyl (day 6) and monitor. (5) Acute respiratory failure: Qualifiers: Respiratory failure complication: hypoxia Qualified Code(s): J96.01 - Acute respiratory failure with hypoxia Code(s): J96.00 - Acute respiratory failure, unspecified whether with hypoxia or hypercapnia Status: Acute Assessment and Plan: Acute respiratory failure with hypoxia; tolerating 5L nasal cannula today. Wean O2 as tolerated to keep saturations > 90%. IV Lasix x 1. (6) COPD exacerbation: Code(s): J44.1 - Chronic obstructive pulmonary disease with (acute) exacerbation Status: Acute Assessment and Plan: Negative CTA 07/25. He continues on oral steroids and bronchodilator therapy. Increased frequency of inhalers to Q4. Plan to add maintenance inhaler at discharge with suspected COPD, PFTs as outpatient. Continued tobacco use which should be eliminated. He does not desire nicotine patch at this time. (7) Syncopal episodes: Qualifiers: Syncope type: unspecified Qualified Code(s): R55 - Syncope and collapse Code(s): R55 - Syncope and collapse Status: Acute Assessment and Plan: Some inconsistencies in history reported. EMS report states they were called due to weakness, abdominal pain, and multiple recent ground-level falls and when they found him, he was sitting up in recliner alert and oriented x 4. CT brain with no acute findings. ?mechanical falls 2/2 etoh. (8) Hypokalemia: Code(s): E87.6 - Hypokalemia Status: Acute Assessment and Plan: K 3.6. Maintained on daily K replacement, will monitor. (9) Smoker: Code(s): F17.200 - Nicotine dependence, unspecified, uncomplicated Status: Chronic Assessment and Plan: Patient will need to quit smoking. He denies the need for nicotine
[2019-07-31 11:33] LABS: Add Urine Microscopic? YES; Appearance Urine Clear (Clear); Bilirubin Urine Negative (Negative); Blood Urine Negative (Negative); Color Urine Yellow (Yellow); Glucose Urine UA Negative (Negative); Ketones Urine Negative (Negative); Leukocyte Esterase Ur Trace LEU/UL (Negative); Mucus Urine Few /lpf; Nitrate Urine Negative (Negative); Protein Urine Negative (Negative); RBC Urine 0-2 /hpf (0-2); Specific Grav Ur 1.011 (1.001-1.035); WBC Urine 0-3 /hpf
[2019-07-31] MEDS: FUROSEMIDE INJ 40 MG/4 ML VIAL IV PUSH (12:38)
[2019-07-31] MEDS: TERAZOSIN HCL 5 MG CAPSULE 10 MG PO (20:21)
[2019-08-01] VITALS (26 sets, daily range): BP systolic 128–156; BP diastolic 52–101; PULSE 85–132; RESP 20–24; TEMP 35.8–36.5; O2SAT 90–96
[2019-08-01] MEDS: IPRATROPIUM BR 0.02% INH SOLN 0.5 MG/2.5 ML VIAL INHALATION ×4 (03:00→20:12)
[2019-08-01] MEDS: LEVALBUTEROL NEB 1.25 MG/3 ML 0.63 MG INHALATION ×4 (03:00→20:11)
[2019-08-01 04:35] LABS: Basophils Percent Auto 0.2 % (0.2-1.2); Eosinophils Percent Auto 0.4 % (0-4.4); Hematocrit 38.8 % (42.0-52.0); Hemoglobin 13.4 g/dL (14.0-18.0); Immature Granulocyte Absolute 0.18 K/mm3 (0.00-0.031); Immature Granulocyte Percent A 1.8 % (0-0.5); Lymphocytes Absolute Auto 1.45 K/mm3 (0.9-3.2); Lymphocytes Percent Auto 14.9 % (18.3-44.2); Mean Corpuscular HGB Conc 34.5 g/dl (32-36); Mean Corpuscular Hemoglobin 35.4 pg (26-34); Mean Corpuscular Volume 102.4 fl (80-100); Mean Platelet Volume 9.5 fl (7.4-10.4); Monocytes Absolute Auto 0.4 K/mm3 (0.1-0.6); Monocytes Percent Auto 4.1 % (2.6-8.5); Neutrophils Absolute Auto 7.7 K/mm3 (1.3-6.7); Neutrophils Percent Auto 78.6 % (45.5-73.1); Platelet Count Result 227 k/mm3 (150-375); Red Blood Count 3.79 M/mm3 (4.6-6.20); Red Cell Distribution Width 12.7 % (11.5-14.5); White Blood Count 9.7 K/mm3 (4.5-10.0)
[2019-08-01 04:50] LABS: Alanine Aminotransferase 15 U/L (4-50); Albumin Level 2.5 g/dL (3.5-5.1); Alkaline Phosphatase 92 U/L (38-126); Aspartate Amino Transferase 20 U/L (17-59); Bilirubin,Total 0.6 mg/dL (0.2-1.3); Blood Urea Nitrogen 10 mg/dL (9-20); Carbon Dioxide 33 mmol/L (22-30); Chloride 99 mmol/L (98-107); Estimated CRCL calculation 108 ml/min; Estimated Glomerular Filt Rate > 60; Glucose 118 mg/dL (75-110); Magnesium 1.8 mg/dL (1.6-2.3); Phosphorus 3.2 mg/dL (2.5-4.5); Potassium 3.1 mmol/L (3.4-5.0); Sodium 137 mmol/L (137-145)
[2019-08-01] MEDS: metroNIDAZOLE 500 MG/ISO 100ML 500 MG/100 ML BAG 100 MG IVPB ×3 (05:53→17:08)
[2019-08-01 07:11] LABS: Free T4 Free Thyroxine Reflex 1.52 ng/dL (0.78-2.19)
[2019-08-01 08:14] LABS: Total Triiodothyronine (T3) 0.96 NG/ML (0.97-1.69)
[2019-08-01] MEDS: POTASSIUM CHLORIDE 10 MEQ TABLET.ER 40 MEQ PO (08:25)
[2019-08-01] MEDS: CIPROFLOXACIN 400 MG/D5W 200ML 200 ML 200 MG IVPB ×2 (08:25→20:32)
[2019-08-01] MEDS: LANSOPRAZOLE ORAL SUSP 30 MG/10 ML ORAL.SUSP PO (08:25)
[2019-08-01] MEDS: CHOLECALCIFEROL 1,000 UNIT TABLET 5000 UNITS PO (08:26)
[2019-08-01] MEDS: predniSONE 20 MG TABLET 40 MG PO (08:26)
[2019-08-01] MEDS: PRAVASTATIN SODIUM 20 MG TABLET 40 MG PO (08:27)
[2019-08-01] MEDS: FOLIC ACID 1 MG TABLET PO (08:27)
[2019-08-01] MEDS: THIAMINE HCL 100 MG TABLET PO (08:27)
--- NOTE | 2019-08-01 12:10 | PM.PNCARD ---
Progress Note: A&P Additional Plan Will shift to oral diltiazem for the patient's chronic atrial fibrillation. The patient's heart rate response to IV diltiazem was a bit too slow last night at 20 mg per hour. At this time I will discontinue the drip and start oral long-acting diltiazem at 300 mg daily. Observe his heart rate response to this. Do not consider this alcoholic patient a candidate for systemic anticoagulation with risk be higher than benefit Donavan Monahan MD [facility] Subjective Date/time seen: Date of service: 08/01/19 12:10 Interval history: Follow-up visit for management of atrial fibrillation in this 69-year-old man. Principal comorbidity includes alcohol abuse Exam Const: General: no acute distress Other: Patient is more coherent is receiving physical therapy at this time. According to the nursing staff he is taking his other medications orally. Still receiving IV diltiazem HENMT: Mouth: Yes moist mucous membranes Eyes: Sclera: sclerae normal Pupils: Equal, round and reactive pupils present Neck: Neck: supple and no JVD Thyroid: thyroid normal Resp: Effort & Inspection: normal respiratory effort Auscultation: clear to auscultation bilaterally Cardio: Rhythm: abnormal rhythm irregularly irregular GI: Auscultation: normal bowel sounds Skin: General skin exam: normal color Objective Data Vital Signs Vital Signs: Vital Signs - 24 hr 07/31/19 12:45 07/31/19 12:50 07/31/19 14:00 Temperature Pulse Rate 94 91 94 Pulse Rate [Monitor] Respiratory Rate 24 H 24 H Blood Pressure Pulse Oximetry 07/31/19 16:00 07/31/19 16:42 07/31/19 16:49 Temperature 36.1 C L Pulse Rate 113 H 114 H 105 H Pulse Rate [Monitor] Respiratory Rate 20 20 20 Blood Pressure 132/88 Pulse Oximetry 93 07/31/19 18:00 07/31/19 19:01 07/31/19 19:02 Temperature Pulse Rate 99 94 94 Pulse Rate [Monitor] Respiratory Rate 20 Blood Pressure Pulse Oximetry 90 07/31/19 19:08 07/31/19 20:00 07/31/19 21:58 Temperature 36.4 C Pulse Rate 104 H 95 89 Pulse Rate [Monitor] 84 Respiratory Rate 20 28 H Blood Pressure 153/96 H Pulse Oximetry 92 07/31/19 23:40 07/31/19 23:49 08/01/19 00:00 Temperature 36.4 C L Pulse Rate 113 H 81 113 H Pulse Rate [Monitor] 113 H Respiratory Rate 24 H 20 24 H Blood Pressure 128/52 L 128/52 L Pulse Oximetry 91 91 08/01/19 01:56 08/01/19 03:00 08/01/19 03:12 Temperature Pulse Rate 85 89 95 Pulse Rate [Monitor] Respiratory Rate 20 20 Blood Pressure Pulse Oximetry 08/01/19 03:25 08/01/19 03:46 08/01/19 03:47 Temperature 36.3 C L Pulse Rate 98 98 Pulse Rate [Monitor] 98 Respiratory Rate 20 20 Blood Pressure 135/89 135/89 Pulse Oximetry 90 90 08/01/19 04:00 08/01/19 06:00 08/01/19 08:00 Temperature 36.5 C Pulse Rate 121 H 113 H 129 H Pulse Rate [Monitor] 132 H Respiratory Rate 20 Blood Pressure 156/95 H Pulse Oximetry 94 08/01/19 08:11 08/01/19 08:21 08/01/19 10:52 Temperature Pulse Rate 118 H 113 H 93 Pulse Rate [Monitor] Respiratory Rate 20 20 Blood Pressure Pulse Oximetry 94 08/01/19 11:53 Temperature 35.8 C L Pulse Rate 92 Pulse Rate [Monitor] Respiratory Rate 20 Blood Pressure 130/84 Pulse Oximetry 90 Intake/Output Intake/Output: Intake & Output 07/29/19 07/30/19 07/31/19 08/01/19 23:59 23:59 23:59 23:59 Intake Total 2667 2100 1565 588 Output Total 044 412 7171 500 Balance [facility] 1200 1410 88 Meds/Results Medications: Active Medications Generic Name Dose Route Start Last Admin Trade Name Freq PRN Reason Stop Dose Admin Aspirin 325 mg 07/26/19 09:00 07/26/19 08:08 Aspirin Ec PO 325 mg DAILY MONET Administration Carvedilol 12.5 mg 07/26/19 09:00 07/28/19 18:36 Coreg PO Not Given Q12HR MONET Diltiazem HCl 360 mg 07/26/19 09:00 07/26/19 08:08 Cardizem Cd PO 08/25/19 09:01 360 mg DAILY MONET Adminis
--- NOTE | 2019-08-01 16:24 | PM.IMPN ---
Progress Note: A&P Assessment and Plan (1) Altered mental status: Qualifiers: Altered mental status type: unspecified Qualified Code(s): R41.82 - Altered mental status, unspecified Code(s): R41.82 - Altered mental status, unspecified Status: Acute Assessment and Plan: [place] to be associated with etoh withdrawal and benzodiazepines at this time. Repeat ammonia is normal 07/30.. Repeat urinalysis 07/30 is unremarkable. Recent ABG with no hypercapnia. CT brain on arrival with no acute findings. Holding benzos today if able and monitor. Seems to be a little more awake and working with therapy. (2) Chronic alcohol use: Code(s): Z72.89 - Other problems related to lifestyle Status: Chronic Assessment and Plan: Attempting to hold off on Librium and ativan today; lethargic, benzodiazpines may be contributing to decreased respiratory drive. Initially 3 margaritas daily was reported, now coming to light that he may drink one bottle of tequila daily. Continue monitoring with CIWA. Continue folic acid and thiamine. (3) Atrial fibrillation with rapid ventricular response: Code(s): I48.91 - Unspecified atrial fibrillation Status: Acute Assessment and Plan: Management per cardiology - appreciate recommendations. Diltiazem IV changed to p.o. 300 daily today. Michi last evening on 20 milligrams/hour . His home regimen includes oral carvedilol and diltiazem. Rates improved this AM. (4) Acute cholecystitis: Code(s): K81.0 - Acute cholecystitis Status: Acute Assessment and Plan: Appreciate surgery recommendations. Agree that he is a poor surgical candidate at this time. Noted Dr Gonzales's plan to continue medical management with antibiotics for now since he is improving and reevaluate if surgical intervention is necessary. Continue ciprofloxacin and flagyl (day 7) and monitor. (5) Acute respiratory failure: Qualifiers: Respiratory failure complication: hypoxia Qualified Code(s): J96.01 - Acute respiratory failure with hypoxia Code(s): J96.00 - Acute respiratory failure, unspecified whether with hypoxia or hypercapnia Status: Acute Assessment and Plan: Acute respiratory failure with hypoxia; tolerating 5L nasal cannula today. Wean O2 as tolerated to keep saturations > 90%. IV Lasix 07/30 Repeat chest x-ray today right-sided atelectasis and/or small effusion and infiltrate. May have been some aspiration but continue metronidazole and ciprofloxacin., incentive spirometry (6) COPD exacerbation: Code(s): J44.1 - Chronic obstructive pulmonary disease with (acute) exacerbation Status: Acute Assessment and Plan: Negative CTA 07/25. He continues on oral steroids and bronchodilator therapy. Increased frequency of inhalers to Q4. Plan to add maintenance inhaler at discharge with suspected COPD, PFTs as outpatient. Continued tobacco use which should be eliminated. He does not desire nicotine patch at this time. (7) Syncopal episodes: Qualifiers: Syncope type: unspecified Qualified Code(s): R55 - Syncope and collapse Code(s): R55 - Syncope and collapse Status: Acute Assessment and Plan: Some inconsistencies in history reported. EMS report states they were called due to weakness, abdominal pain, and multiple recent ground-level falls and when they found him, he was sitting up in recliner alert and oriented x 4. CT brain with no acute findings. ?mechanical falls 2/2 etoh. (8) Hypokalemia: Code(s): E87.6 - Hypokalemia Status: Acute Assessment and Plan: K 3.1. Maintained on daily K replacement an additional 40 IV today (9) Smoker: Cod
[2019-08-01] MEDS: TERAZOSIN HCL 5 MG CAPSULE 10 MG PO (20:32)
[2019-08-01] MEDS: SODIUM CHLORIDE 0.9% IV 1,000 ML 30 ML IV CONT (20:39)
[2019-08-02] VITALS (28 sets, daily range): BP systolic 137–158; BP diastolic 82–130; PULSE 74–136; RESP 16–24; TEMP 35.6–36.7; O2SAT 92–97
[2019-08-02] MEDS: metroNIDAZOLE 500 MG/ISO 100ML 500 MG/100 ML BAG 100 MG IVPB ×5 (00:09→23:41)
[2019-08-02] MEDS: LEVALBUTEROL NEB 1.25 MG/3 ML 0.63 MG INHALATION ×6 (00:38→20:45)
[2019-08-02] MEDS: IPRATROPIUM BR 0.02% INH SOLN 0.5 MG/2.5 ML VIAL INHALATION ×6 (00:39→20:45)
[2019-08-02 04:51] LABS: Basophils Percent Auto 0.2 % (0.2-1.2); Eosinophils Percent Auto 0.2 % (0-4.4); Hematocrit 40.3 % (42.0-52.0); Hemoglobin 13.8 g/dL (14.0-18.0); Immature Granulocyte Absolute 0.14 K/mm3 (0.00-0.031); Immature Granulocyte Percent A 1.1 % (0-0.5); Lymphocytes Absolute Auto 1.04 K/mm3 (0.9-3.2); Lymphocytes Percent Auto 8.5 % (18.3-44.2); Mean Corpuscular HGB Conc 34.2 g/dl (32-36); Mean Corpuscular Hemoglobin 34.9 pg (26-34); Mean Platelet Volume 9.8 fl (7.4-10.4); Monocytes Absolute Auto 0.5 K/mm3 (0.1-0.6); Neutrophils Absolute Auto 10.5 K/mm3 (1.3-6.7); Platelet Count Result 250 k/mm3 (150-375); Red Blood Count 3.95 M/mm3 (4.6-6.20); Red Cell Distribution Width 12.3 % (11.5-14.5); White Blood Count 12.2 K/mm3 (4.5-10.0)
[2019-08-02 05:06] LABS: Alanine Aminotransferase 13 U/L (4-50); Albumin Level 2.7 g/dL (3.5-5.1); Alkaline Phosphatase 91 U/L (38-126); Aspartate Amino Transferase 16 U/L (17-59); Bilirubin,Total 0.5 mg/dL (0.2-1.3); Blood Urea Nitrogen 7 mg/dL (9-20); Calcium 8.4 mg/dL (8.4-10.2); Carbon Dioxide 32 mmol/L (22-30); Chloride 103 mmol/L (98-107); Estimated CRCL calculation 110 ml/min; Estimated Glomerular Filt Rate > 60; Glucose 136 mg/dL (75-110); Potassium 3.5 mmol/L (3.4-5.0); Sodium 136 mmol/L (137-145)
[2019-08-02] MEDS: LANSOPRAZOLE ORAL SUSP 30 MG/10 ML ORAL.SUSP PO (09:02)
[2019-08-02] MEDS: CIPROFLOXACIN 400 MG/D5W 200ML 200 ML 200 MG IVPB (09:02)
[2019-08-02] MEDS: THIAMINE HCL 100 MG TABLET PO (09:03)
[2019-08-02] MEDS: PRAVASTATIN SODIUM 20 MG TABLET 40 MG PO (09:03)
[2019-08-02] MEDS: predniSONE 20 MG TABLET 40 MG PO (09:03)
[2019-08-02] MEDS: FOLIC ACID 1 MG TABLET PO (09:03)
[2019-08-02] MEDS: POTASSIUM CHLORIDE 10 MEQ TABLET.ER 40 MEQ PO (09:03)
[2019-08-02] MEDS: CHOLECALCIFEROL 1,000 UNIT TABLET 5000 UNITS PO (09:04)
--- NOTE | 2019-08-02 09:40 | PM.PNCARD ---
Progress Note: A&P Additional Plan 69-year-old man with chronic persistent atrial fibrillation. We are now using oral diltiazem to provide heart rate control. I will take his maintenance dose back up to 360 mg per day which was his home dosage to begin with. Heart rate is in the 110-115 which is not too bad for him but as blood pressure is not low he will tolerate a higher dose I believe. As I have said in previous notes he is not a safe candidate for anticoagulation in my opinion Donavan Monahan MD [facility] Subjective Date/time seen: Date of service: 08/02/19 09:40 Interval history: Follow-up visit for management of atrial fibrillation in this 69-year-old man Also has chronic ethanol abuse with alcohol withdrawal now seems to be resolving Patient is alert responsive and appropriate offers no complaints this morning Exam Const: General: comfortable and no acute distress HENMT: Mouth: Yes moist mucous membranes Eyes: Sclera: sclerae normal Pupils: Equal, round and reactive pupils present Neck: Neck: supple and no JVD Thyroid: thyroid normal Resp: Effort & Inspection: normal respiratory effort Auscultation: clear to auscultation bilaterally Cardio: Rhythm: abnormal rhythm irregularly irregular GI: Auscultation: normal bowel sounds Skin: General skin exam: normal color Neuro: Cognition (Neuro): normal cognition Extrem: General: normal to inspection Objective Data Vital Signs Vital Signs: Vital Signs - 24 hr 08/01/19 10:52 08/01/19 11:53 08/01/19 12:00 Temperature 35.8 C L Pulse Rate 93 92 124 H Pulse Rate [Monitor] Respiratory Rate 20 Blood Pressure 130/84 Pulse Oximetry 90 08/01/19 14:00 08/01/19 16:00 08/01/19 16:43 Temperature 35.8 C L Pulse Rate 115 H 116 H 120 H Pulse Rate [Monitor] Respiratory Rate 20 20 Blood Pressure 136/84 Pulse Oximetry 96 08/01/19 16:51 08/01/19 18:00 08/01/19 19:22 Temperature 36.2 C L Pulse Rate 119 H 106 H 116 H Pulse Rate [Monitor] Respiratory Rate 20 24 H Blood Pressure 145/94 H Pulse Oximetry 95 08/01/19 20:00 08/01/19 20:10 08/01/19 20:24 Temperature Pulse Rate 116 H 131 H 126 H Pulse Rate [Monitor] Respiratory Rate 24 H 20 20 Blood Pressure 145/94 H Pulse Oximetry 95 90 08/01/19 22:00 08/01/19 23:30 08/02/19 00:00 Temperature 36.2 C L Pulse Rate 117 H 121 H 136 H Pulse Rate [Monitor] 136 H Respiratory Rate 24 H 24 H Blood Pressure 137/101 H 137/101 H Pulse Oximetry 95 95 08/02/19 00:39 08/02/19 02:00 08/02/19 03:54 Temperature Pulse Rate 107 H 116 H 105 H Pulse Rate [Monitor] Respiratory Rate 20 20 Blood Pressure Pulse Oximetry 08/02/19 03:55 08/02/19 04:00 08/02/19 04:36 Temperature 36.6 C Pulse Rate 117 H 118 H 118 H Pulse Rate [Monitor] 118 H Respiratory Rate 22 H 20 20 Blood Pressure 158/130 H 158/130 H Pulse Oximetry 92 92 08/02/19 04:50 08/02/19 05:36 08/02/19 07:58 Temperature Pulse Rate 113 H 102 H 125 H Pulse Rate [Monitor] Respiratory Rate 20 20 Blood Pressure Pulse Oximetry 08/02/19 08:00 08/02/19 08:07 08/02/19 08:08 Temperature 35.6 C L Pulse Rate 120 H 115 H Pulse Rate [Monitor] Respiratory Rate 16 20 Blood Pressure 148/99 H Pulse Oximetry 92 92 Intake/Output Intake/Output: Intake & Output 07/30/19 07/31/19 08/01/19 08/02/19 23:59 23:59 23:59 23:59 Intake Total 2100 1565 2415 827 Output Total 900 2975 1775 1000 Balance 1200 -3960 145 -841 Meds/Results Medications: Active Medications Generic Name Dose Route Start Last Admin Trade Name Freq PRN Reason Stop Dose Admin Aspirin 325 mg 07/26/19 09:00 07/26/19 08:08 Aspirin Ec PO 325 mg DAILY MONET Administration Carvedilol 12.5 mg 07/26/19 09:00 07/28/19 18:36 Coreg PO Not Given Q12HR MONET Diltiazem HCl 360 mg 07/26/19 09:00 07/26/19 08:08 Cardizem Cd PO 08/25/19 09:01 360 mg DAILY MONET Administr
[2019-08-02] MEDS: POTASSIUM CHLORIDE 20 MEQ TABLET 40 MEQ PO (12:01)
--- NOTE | 2019-08-02 17:50 | PM.IMPN ---
Progress Note: A&P Assessment and Plan (1) Altered mental status: Qualifiers: Altered mental status type: unspecified Qualified Code(s): R41.82 - Altered mental status, unspecified Code(s): R41.82 - Altered mental status, unspecified Status: Acute Assessment and Plan: [place] to be associated with etoh withdrawal and benzodiazepines at this time. Repeat ammonia is normal 07/30.. Repeat urinalysis 07/30 is unremarkable. Recent ABG with no hypercapnia. CT brain on arrival with no acute findings. Holding benzos if able and monitor (2) Chronic alcohol use: Code(s): Z72.89 - Other problems related to lifestyle Status: Chronic Assessment and Plan: Attempting to hold off on Librium and ativan today; lethargic, benzodiazpines may be contributing to decreased respiratory drive. Initially 3 margaritas daily was reported, now coming to light that he may drink one bottle of tequila daily. Continue monitoring with CIWA. Continue folic acid and thiamine. (3) Atrial fibrillation with rapid ventricular response: Code(s): I48.91 - Unspecified atrial fibrillation Status: Acute Assessment and Plan: Management per cardiology - appreciate recommendations. Diltiazem IV changed to p.o.and increased back to his home dose of 360 daily today. . His home regimen includes oral carvedilol and diltiazem. NOt candidate for anticoagulation (4) Acute cholecystitis: Code(s): K81.0 - Acute cholecystitis Status: Acute Assessment and Plan: Appreciate surgery recommendations. Agree that he is a poor surgical candidate at this time. Noted Dr Gonzales's plan to continue medical management with antibiotics for now since he is improving and reevaluate if surgical intervention is necessary. Continue ciprofloxacin and flagyl (day 8) and monitor. abd non tender and LFts are normal (5) Acute respiratory failure: Qualifiers: Respiratory failure complication: hypoxia Qualified Code(s): J96.01 - Acute respiratory failure with hypoxia Code(s): J96.00 - Acute respiratory failure, unspecified whether with hypoxia or hypercapnia Status: Acute Assessment and Plan: Acute respiratory failure with hypoxia; tolerating 5L nasal cannula today. Wean O2 as tolerated to keep saturations > 90%. IV Lasix 07/30 and will repeat today Repeat chest x-ray 07/31 right-sided atelectasis and/or small effusion and infiltrate. May have been some aspiration but continue metronidazole and ciprofloxacin., incentive spirometry and follow up xray am 08/02 (6) COPD exacerbation: Code(s): J44.1 - Chronic obstructive pulmonary disease with (acute) exacerbation Status: Acute Assessment and Plan: Negative CTA 07/25. He continues on oral steroids (start taper)and bronchodilator therapy. Increased frequency of inhalers to Q4. Plan to add maintenance inhaler at discharge with suspected COPD, PFTs as outpatient. Continued tobacco use which should be eliminated. He does not desire nicotine patch at this time. (7) Syncopal episodes: Qualifiers: Syncope type: unspecified Qualified Code(s): R55 - Syncope and collapse Code(s): R55 - Syncope and collapse Status: Acute Assessment and Plan: Some inconsistencies in history reported. EMS report states they were called due to weakness, abdominal pain, and multiple recent ground-level falls and when they found him, he was sitting up in recliner alert and oriented x 4. CT brain with no acute findings. ?mechanical falls 2/ etoh. (8) Hypokalemia: Code(s): E87.6 - Hypokalemia Status: Acute Assessment and Plan: K 3.4. Maintained on daily K replacement and additional 40 po today also ___
[2019-08-02] MEDS: FUROSEMIDE INJ 40 MG/4 ML VIAL IV PUSH (18:10)
[2019-08-02 18:12] LABS: IFOB Positive Control Positive; Immunochemical Fecal Occult Bl Positive (N)
[2019-08-02] MEDS: D5W IVPB (21:21)
[2019-08-02] MEDS: TERAZOSIN HCL 5 MG CAPSULE 10 MG PO (21:21)
[2019-08-02] MEDS: CIPROFLOXACIN IVPB (21:21)
[2019-08-03] VITALS (25 sets, daily range): BP systolic 128–154; BP diastolic 58–110; PULSE 74–144; RESP 18–24; TEMP 36.3–36.7; O2SAT 91–98
--- NOTE | 2019-08-03 02:29 | PCRCNOTE ---
Window of time for administration has passed. See next scheduled administration.
[2019-08-03] MEDS: IPRATROPIUM BR 0.02% INH SOLN 0.5 MG/2.5 ML VIAL INHALATION ×4 (03:50→19:42)
[2019-08-03] MEDS: LEVALBUTEROL NEB 1.25 MG/3 ML 0.63 MG INHALATION ×4 (03:51→19:41)
[2019-08-03 05:10] LABS: Alanine Aminotransferase 11 U/L (4-50); Albumin Level 2.6 g/dL (3.5-5.1); Alkaline Phosphatase 68 U/L (38-126); Aspartate Amino Transferase 24 U/L (17-59); Bilirubin,Total 0.6 mg/dL (0.2-1.3); Blood Urea Nitrogen 7 mg/dL (9-20); Calcium 8.3 mg/dL (8.4-10.2); Carbon Dioxide 26 mmol/L (22-30); Chloride 105 mmol/L (98-107); Estimated CRCL calculation 110 ml/min; Estimated Glomerular Filt Rate > 60; Glucose 119 mg/dL (75-110); Potassium 4.1 mmol/L (3.4-5.0); Sodium 134 mmol/L (137-145)
[2019-08-03] MEDS: metroNIDAZOLE 500 MG/ISO 100ML 500 MG/100 ML BAG 100 MG IVPB ×4 (05:31→23:21)
[2019-08-03] MEDS: SODIUM CHLORIDE 0.9% IV 1,000 ML 30 ML IV CONT (05:32)
[2019-08-03 08:34] LABS: Basophils Percent Auto 0.2 % (0.2-1.2); Eosinophils Percent Auto 0.3 % (0-4.4); Hemoglobin 13.4 g/dL (14.0-18.0); Immature Granulocyte Absolute 0.12 K/mm3 (0.00-0.031); Immature Granulocyte Percent A 0.9 % (0-0.5); Lymphocytes Absolute Auto 1.51 K/mm3 (0.9-3.2); Lymphocytes Percent Auto 10.8 % (18.3-44.2); Mean Corpuscular HGB Conc 33.5 g/dl (32-36); Mean Corpuscular Hemoglobin 35.4 pg (26-34); Mean Corpuscular Volume 105.5 fl (80-100); Mean Platelet Volume 10.5 fl (7.4-10.4); Monocytes Absolute Auto 0.7 K/mm3 (0.1-0.6); Monocytes Percent Auto 4.6 % (2.6-8.5); Neutrophils Absolute Auto 11.7 K/mm3 (1.3-6.7); Neutrophils Percent Auto 83.2 % (45.5-73.1); Platelet Count Result 247 k/mm3 (150-375); Red Blood Count 3.79 M/mm3 (4.6-6.20); Red Cell Distribution Width 12.8 % (11.5-14.5)
[2019-08-03] MEDS: CIPROFLOXACIN IVPB (10:12)
[2019-08-03] MEDS: D5W IVPB (10:12)
[2019-08-03] MEDS: CHOLECALCIFEROL 1,000 UNIT TABLET 5000 UNITS PO (10:15)
[2019-08-03] MEDS: POTASSIUM CHLORIDE 10 MEQ TABLET.ER 40 MEQ PO (10:20)
[2019-08-03] MEDS: predniSONE 10 MG TABLET 30 MG PO (10:21)
[2019-08-03] MEDS: THIAMINE HCL 100 MG TABLET PO (10:21)
[2019-08-03] MEDS: FOLIC ACID 1 MG TABLET PO (10:21)
[2019-08-03] MEDS: PRAVASTATIN SODIUM 20 MG TABLET 40 MG PO (10:23)
[2019-08-03] MEDS: LANSOPRAZOLE ORAL SUSP 30 MG/10 ML ORAL.SUSP PO (10:31)
--- NOTE | 2019-08-03 11:34 | PM.PNCARD ---
Progress Note: A&P Assessment and Plan (1) Atrial fibrillation with rapid ventricular response: Code(s): I48.91 - Unspecified atrial fibrillation Status: Acute Assessment and Plan: Echocardiogram: Left ventricular chamber dimension is normal. Left ventricular systolic function is mildly reduced, estimated at 45-50%. There is mild mitral valve regurgitation. . There is mild aortic valve sclerosis. Biatrial dilation. heart rate is uncontrolled. Will give a dose of IV digoxin 0.25 mg x 1 Alcohol withdrawal management per hospitalist. (2) Chronic alcohol use: Code(s): Z72.89 - Other problems related to lifestyle Status: Chronic (3) COPD exacerbation: Code(s): J44.1 - Chronic obstructive pulmonary disease with (acute) exacerbation Status: Acute (4) Altered mental status: Qualifiers: Altered mental status type: unspecified Qualified Code(s): R41.82 - Altered mental status, unspecified Code(s): R41.82 - Altered mental status, unspecified Status: Acute Additional Plan 69-year-old man with chronic persistent atrial fibrillation. We are now using oral diltiazem to provide heart rate control. Subjective Date/time seen: 08/03/19 11:34 Interval history: Follow-up visit for management of atrial fibrillation in this 69-year-old man Also has chronic ethanol abuse with alcohol withdrawal now seems to be resolving follow-up note 08/03/2019: Alert but heart rate is still wildly uncontrolled. No chest pain Review of Systems Review of Systems: All systems reviewed & are unremarkable except as noted in HPI and below ROS unobtainable: Yes unobtainable due to mental status (Still mumbling and is difficult to understand.) Constitutional: Constitutional: Denies body ache(s) Eyes: Eyes: Reports loss of vision ENT: Denies dizziness, Reports dry mouth, Reports hearing loss and Denies epistaxis Cardiovascular: Cardiovascular: Denies chest pain and Denies dyspnea Respiratory: Respiratory: Denies dyspnea and Denies wheezing Gastrointestinal: Gastrointestinal: Denies abdominal pain Genitourinary: Genitourinary: Denies hematuria Musculoskeletal: Musculoskeletal: Reports abnormal gait and Denies arthralgias Neurologic: Reports Abnormal speech present, Reports abnormal gait, Denies dizziness, Reports loss of vision and Reports memory loss Psychiatric: Psychiatric: Reports memory loss Hematologic/Lymphatic: Hematologic/Lymphatic: Denies easy bruising Allergic/Immunologic: Allergic/Immunologic: Denies wheezing Exam Const: General: cooperative, comfortable and no acute distress Nutritional Appearance: obese Orientation/consciousness: oriented to person and oriented to place Other: Patient is more coherent is receiving physical therapy at this time. According to the nursing staff he is taking his other medications orally. HENMT: General nose exam: Normal nares present and no epistaxis Mouth: Yes moist mucous membranes Eyes: Sclera: sclerae normal and scleral abnormality bilateral Pupils: Equal, round and reactive pupils present Neck: Neck: supple and no JVD Thyroid: thyroid normal Carotids: no bruits Other: Exam for JVD difficult as he is somewhat overweight with a thick neck Chest: Chest palpation & inspection: normal inspection of the chest Resp: Effort & Inspection: normal respiratory effort and tachypneic (respirations 24) Auscultation: clear to auscultation bilaterally, no wheezes and diminished lung sounds on the right in the lower lung herrera Other: Diffuse expiratory wheezing/rhonchi in both lung herrera Cardio: Rate: tachycardic Rhythm: abnormal rhythm irregularly irregular Heart sounds: no gallops, no murmurs and no rubs GI: Auscultation: normal bowel sounds Other: Patient has mild right upper quadrant abdominal pain Urinary Catheter: Urinary Catheter: urine dark Skin: General skin exam: normal color, rashes
[2019-08-03] MEDS: DIGOXIN INJ 250 MCG/ML 2 ML AMP (*BKC) IV PUSH (11:49)
--- NOTE | 2019-08-03 12:54 | PCNWS ---
Weekly nutritional screen. Patient is tolerating current diet with adequate intake today. Breakfast tray 100% of Eggs, toast, corn flakes with milk, OJ and coffee. Spoke with nursing today due to COVID 19 precautions, patient had been confused on admission hx of ETOH. Patient on Thiamin and Folic Acid. No weight loss reported. No nutritional needs at this time.
--- NOTE | 2019-08-03 18:20 | PM.IMPN ---
Progress Note: A&P Assessment and Plan (1) Altered mental status: Qualifiers: Altered mental status type: unspecified Qualified Code(s): R41.82 - Altered mental status, unspecified Code(s): R41.82 - Altered mental status, unspecified Status: Acute Assessment and Plan: [place] to be associated with etoh withdrawal and benzodiazepines at this time. Repeat ammonia is normal 07/30.. Repeat urinalysis 07/30 is unremarkable. Recent ABG with no hypercapnia. CT brain on arrival with no acute findings. Holding benzos if able and monitor with supportive care (2) Chronic alcohol use: Code(s): Z72.89 - Other problems related to lifestyle Status: Chronic Assessment and Plan: Attempting to hold off on Librium and ativan today;, benzodiazpines may be contributing to decreased respiratory drive. Initially 3 margaritas daily was reported, now coming to light that he may drink one bottle of tequila daily. Continue monitoring with CIWA. Continue folic acid and thiamine. (3) Atrial fibrillation with rapid ventricular response: Code(s): I48.91 - Unspecified atrial fibrillation Status: Acute Assessment and Plan: Management per cardiology - appreciate recommendations. Diltiazem IV changed to p.o.and increased back to his home dose of 360 daily today. . His home regimen includes oral carvedilol and diltiazem. NOt candidate for anticoagulation card added dig today for rate control and is off coreg (4) Acute cholecystitis: Code(s): K81.0 - Acute cholecystitis Status: Acute Assessment and Plan: Appreciate surgery recommendations. Agree that he is a poor surgical candidate at this time. Noted Dr Gonzales's plan to continue medical management with antibiotics for now since he is improving and reevaluate if surgical intervention is necessary. Continue ciprofloxacin and flagyl (day 9) and monitor. abd non tender and LFts are normal (5) Acute respiratory failure: Qualifiers: Respiratory failure complication: hypoxia Qualified Code(s): J96.01 - Acute respiratory failure with hypoxia Code(s): J96.00 - Acute respiratory failure, unspecified whether with hypoxia or hypercapnia Status: Acute Assessment and Plan: Acute respiratory failure with hypoxia; tolerating 5L nasal cannula today. Wean O2 as tolerated to keep saturations > 90%. IV Lasix 07/30 ,08/01 and today Repeat chest x-ray 07/31 right-sided atelectasis and/or small effusion and infiltrate. May have been some aspiration but continue metronidazole and ciprofloxacin., incentive spirometry and follow up chest xray today definitely looks better but rad read as stable (6) COPD exacerbation: Code(s): J44.1 - Chronic obstructive pulmonary disease with (acute) exacerbation Status: Acute Assessment and Plan: Negative CTA 07/25. He continues on oral steroids (start taper)and bronchodilator therapy. . Plan to add maintenance inhaler at discharge with suspected COPD, PFTs as outpatient. Continued tobacco use which should be eliminated. He does not desire nicotine patch at this time. (7) Syncopal episodes: Qualifiers: Syncope type: unspecified Qualified Code(s): R55 - Syncope and collapse Code(s): R55 - Syncope and collapse Status: Acute Assessment and Plan: Some inconsistencies in history reported. EMS report states they were called due to weakness, abdominal pain, and multiple recent ground-level falls and when they found him, he was sitting up in recliner alert and oriented x 4. CT brain with no acute findings. ?mechanical falls 2/ etoh. (8) Hypokalemia: Code(s): E87.6 - Hypokalemia Status: Acute Assessment and Plan:
[2019-08-03] MEDS: FUROSEMIDE INJ 40 MG/4 ML VIAL IV PUSH (18:48)
[2019-08-03] MEDS: CIPROFLOXACIN 400 MG/D5W 200ML 200 ML 200 MG IVPB (21:02)
[2019-08-03] MEDS: TERAZOSIN HCL 5 MG CAPSULE 10 MG PO (21:03)
[2019-08-04] VITALS (28 sets, daily range): BP systolic 128–165; BP diastolic 88–97; PULSE 66–139; RESP 16–22; TEMP 36.2–36.7; O2SAT 93–100
[2019-08-04] MEDS: IPRATROPIUM BR 0.02% INH SOLN 0.5 MG/2.5 ML VIAL INHALATION ×4 (01:37→19:30)
[2019-08-04] MEDS: LEVALBUTEROL NEB 1.25 MG/3 ML 0.63 MG INHALATION ×4 (01:37→19:31)
[2019-08-04 04:43] LABS: Basophils Percent Auto 0.2 % (0.2-1.2); Eosinophils Percent Auto 0.1 % (0-4.4); Hematocrit 36.8 % (42.0-52.0); Hemoglobin 12.4 g/dL (14.0-18.0); Immature Granulocyte Absolute 0.09 K/mm3 (0.00-0.031); Immature Granulocyte Percent A 0.8 % (0-0.5); Lymphocytes Absolute Auto 1.53 K/mm3 (0.9-3.2); Lymphocytes Percent Auto 13.5 % (18.3-44.2); Mean Corpuscular HGB Conc 33.7 g/dl (32-36); Mean Platelet Volume 10.1 fl (7.4-10.4); Monocytes Absolute Auto 0.6 K/mm3 (0.1-0.6); Neutrophils Absolute Auto 9.2 K/mm3 (1.3-6.7); Neutrophils Percent Auto 80.4 % (45.5-73.1); Platelet Count Result 265 k/mm3 (150-375); Red Blood Count 3.54 M/mm3 (4.6-6.20); Red Cell Distribution Width 12.7 % (11.5-14.5); White Blood Count 11.4 K/mm3 (4.5-10.0)
[2019-08-04 05:01] LABS: Blood Urea Nitrogen 9 mg/dL (9-20); Calcium 8.1 mg/dL (8.4-10.2); Carbon Dioxide 31 mmol/L (22-30); Chloride 105 mmol/L (98-107); Estimated CRCL calculation 107 ml/min; Estimated Glomerular Filt Rate > 60; Glucose 117 mg/dL (75-110); Potassium 3.5 mmol/L (3.4-5.0); Sodium 135 mmol/L (137-145)
[2019-08-04] MEDS: metroNIDAZOLE 500 MG/ISO 100ML 500 MG/100 ML BAG 100 MG IVPB ×3 (05:36→18:03)
[2019-08-04] MEDS: SODIUM CHLORIDE 0.9% IV 500 ML 30 ML IV CONT (05:42)
[2019-08-04] MEDS: CIPROFLOXACIN 400 MG/D5W 200ML 200 ML 200 MG IVPB ×2 (09:05→20:36)
[2019-08-04] MEDS: POTASSIUM CHLORIDE 10 MEQ TABLET.ER 40 MEQ PO (09:06)
[2019-08-04] MEDS: predniSONE 10 MG TABLET 30 MG PO (09:07)
[2019-08-04] MEDS: FOLIC ACID 1 MG TABLET PO (09:07)
[2019-08-04] MEDS: PRAVASTATIN SODIUM 20 MG TABLET 40 MG PO (09:07)
[2019-08-04] MEDS: CHOLECALCIFEROL 1,000 UNIT TABLET 5000 UNITS PO (09:07)
[2019-08-04] MEDS: THIAMINE HCL 100 MG TABLET PO (09:08)
[2019-08-04] MEDS: LANSOPRAZOLE ORAL SUSP 30 MG/10 ML ORAL.SUSP PO (09:09)
--- NOTE | 2019-08-04 11:13 | PM.PNCARD ---
Progress Note: A&P Assessment and Plan (1) Atrial fibrillation with rapid ventricular response: Code(s): I48.91 - Unspecified atrial fibrillation Status: Acute Assessment and Plan: Echocardiogram: Left ventricular chamber dimension is normal. Left ventricular systolic function is mildly reduced, estimated at 45-50%. There is mild mitral valve regurgitation. . There is mild aortic valve sclerosis. Biatrial dilation. Will resume some carvedilol. Start at 6.25 mg p.o. b.i.d.. Could consider switching to metoprolol for better heart rate control potassium chloride 40 mg p.o. x1 Alcohol withdrawal management per hospitalist. (2) Chronic alcohol use: Code(s): Z72.89 - Other problems related to lifestyle Status: Chronic (3) COPD exacerbation: Code(s): J44.1 - Chronic obstructive pulmonary disease with (acute) exacerbation Status: Acute (4) Altered mental status: Qualifiers: Altered mental status type: unspecified Qualified Code(s): R41.82 - Altered mental status, unspecified Code(s): R41.82 - Altered mental status, unspecified Status: Acute Additional Plan 69-year-old man with chronic persistent atrial fibrillation. We are now using oral diltiazem to provide heart rate control. Subjective Date/time seen: 08/04/19 11:13 Interval history: Follow-up visit for management of atrial fibrillation in this 69-year-old man Also has chronic ethanol abuse with alcohol withdrawal now seems to be resolving follow-up note 08/04/2019: became agitated last night. Wants to go home No chest pain Review of Systems Review of Systems: All systems reviewed & are unremarkable except as noted in HPI and below ROS unobtainable: Yes unobtainable due to mental status (Still mumbling and is difficult to understand.) Constitutional: Constitutional: Denies body ache(s) Eyes: Eyes: Reports loss of vision ENT: Denies dizziness, Reports dry mouth, Reports hearing loss and Denies epistaxis Cardiovascular: Cardiovascular: Denies chest pain and Denies dyspnea Respiratory: Respiratory: Denies dyspnea and Denies wheezing Gastrointestinal: Gastrointestinal: Denies abdominal pain Genitourinary: Genitourinary: Denies hematuria Musculoskeletal: Musculoskeletal: Reports abnormal gait and Denies arthralgias Neurologic: Reports Abnormal speech present, Reports abnormal gait, Denies dizziness, Reports loss of vision and Reports memory loss Psychiatric: Psychiatric: Reports memory loss Hematologic/Lymphatic: Hematologic/Lymphatic: Denies easy bruising Allergic/Immunologic: Allergic/Immunologic: Denies wheezing Exam Const: General: cooperative, comfortable and no acute distress Nutritional Appearance: obese Orientation/consciousness: oriented to person and oriented to place Other: alert HENMT: General nose exam: Normal nares present and no epistaxis Mouth: Yes moist mucous membranes Eyes: Sclera: sclerae normal and scleral abnormality bilateral Pupils: Equal, round and reactive pupils present Neck: Neck: supple and no JVD Thyroid: thyroid normal Carotids: no bruits Other: Exam for JVD difficult as he is somewhat overweight with a thick neck Chest: Chest palpation & inspection: normal inspection of the chest Resp: Effort & Inspection: normal respiratory effort Auscultation: wheezes and diminished lung sounds on the right in the lower lung herrera Other: Diffuse expiratory wheezing/rhonchi in both lung herrera Cardio: Rate: tachycardic Rhythm: abnormal rhythm irregularly irregular Heart sounds: no gallops, no murmurs and no rubs GI: Auscultation: normal bowel sounds Other: Patient has mild right upper quadrant abdominal pain Urinary Catheter: Urinary Catheter: urine dark Skin: General skin exam: normal color, rashes and/or lesions noted and no erythema Other: Warm Neuro: General: oriented to person, oriented to place and other (Mumb
--- NOTE | 2019-08-04 14:00 | PCOTNOTE ---
Attempted to see patient for second time this PM. Patient again declined to participate in any functional ADL task or mobility at this time. Patient stated, No, I think I'm good and declined. Patient educated over importance of participating in therapy to increase wellness. Patient stated he would be willing to work on sponge bathing the following day. Due to patient's memory issues, therapist had patient sign note he would be willing to bathe with therapy on 08/05/2019 in order to improve compliance with participating in functional ADL tasks with OT. Patient signed note but refused to participate in any task this date. Patient not seen for OT this date.
--- NOTE | 2019-08-04 16:46 | PM.IMPN ---
Progress Note: A&P Assessment and Plan (1) Altered mental status: Qualifiers: Altered mental status type: unspecified Qualified Code(s): R41.82 - Altered mental status, unspecified Code(s): R41.82 - Altered mental status, unspecified Status: Acute Assessment and Plan: [place] to be associated with etoh withdrawal and benzodiazepines at this time. Repeat ammonia is normal 07/30. Repeat urinalysis 07/30 is unremarkable. Recent ABG with no hypercapnia. CT brain on arrival with no acute findings. Benzos placed on hold and mental status better today. Contineu to monitor. (2) Chronic alcohol use: Code(s): Z72.89 - Other problems related to lifestyle Status: Chronic Assessment and Plan: Initially 3 margaritas daily was reported, now coming to light that he may drink one bottle of tequila daily. Very somnolent so Librium and ativan placed on hold. Continue monitoring with CIWA. Continue folic acid and thiamine. (3) Atrial fibrillation with rapid ventricular response: Code(s): I48.91 - Unspecified atrial fibrillation Status: Acute Assessment and Plan: HR elevated at times. Currently on Diltiazem. Digoxin x 1 dose given yesterday. Diltiazem IV changed to p.o.and increased back to his home dose of 360 daily. His home regimen includes oral carvedilol and diltiazem. Not a candidate for anticoagulation at this time. BP okay. Will resume Coreg. (4) Acute cholecystitis: Code(s): K81.0 - Acute cholecystitis Status: Acute Assessment and Plan: Appreciate surgery recommendations. Agree that he is a poor surgical candidate at this time. Noted Dr Gonzales's plan to continue medical management with antibiotics for now since he is improving and reevaluate if surgical intervention is necessary. Continue ciprofloxacin and flagyl (day 10). Exam benign today and patient eating normally. Stool guaiac positive. This was ordered from 07/25 for workup of his abd pain. Hgb mildly low but stable in the 12-13 range. Consider gastritis or from hemorrhoids. He will need further evaluation but could wait for outpatient settings. Continue Prevacid. (5) Acute respiratory failure: Qualifiers: Respiratory failure complication: hypoxia Qualified Code(s): J96.01 - Acute respiratory failure with hypoxia Code(s): J96.00 - Acute respiratory failure, unspecified whether with hypoxia or hypercapnia Status: Acute Assessment and Plan: Acute respiratory failure with hypoxia. CXR yesterday showing stable airspace opacities in bilateral lower lobe. IV Lasix 07/30 ,08/01 and 08/02 with UOP of 3.2L yesterday. Lung exam improved. Wean O2 as tolerated. Stop IVF (6) COPD exacerbation: Code(s): J44.1 - Chronic obstructive pulmonary disease with (acute) exacerbation Status: Acute Assessment and Plan: CTA 07/25 showing emphysema but no PE. No wheezing. He continues on oral prednisone taper and bronchodilator therapy. (7) Syncopal episodes: Qualifiers: Syncope type: unspecified Qualified Code(s): R55 - Syncope and collapse Code(s): R55 - Syncope and collapse Status: Acute Assessment and Plan: Some inconsistencies in history reported. EMS report states they were called due to weakness, abdominal pain, and multiple recent ground-level falls and when they found him, he was sitting up in recliner alert and oriented x 4. CT brain with no acute findings. ?mechanical falls 2/2 etoh. Appears to be recovering well. (8) Hypokalemia: Code(s): E87.6 - Hypokalemia Status: Acute Assessment and Plan: Admission at 2.7. This has been replaced. Potassium 3.5 today. Patient is maintained on oral replacement. (9) Smoker: Code(s): F17.200 - Nicotine dependence, unspecified, uncomplicated Status: Chronic Assessment and Plan: Patient will need to quit smoking. He d
[2019-08-04] MEDS: TERAZOSIN HCL 5 MG CAPSULE 10 MG PO (20:35)
[2019-08-04] MEDS: carvediloL 6.25 MG TABLET PO (21:15)
[2019-08-05] VITALS (23 sets, daily range): BP systolic 127–168; BP diastolic 71–90; PULSE 81–130; RESP 14–26; TEMP 36.1–36.6; O2SAT 94–97
[2019-08-05] MEDS: metroNIDAZOLE 500 MG/ISO 100ML 500 MG/100 ML BAG 100 MG IVPB ×3 (00:30→12:19)
[2019-08-05] MEDS: LEVALBUTEROL NEB 1.25 MG/3 ML 0.63 MG INHALATION ×2 (01:44→06:16)
[2019-08-05] MEDS: IPRATROPIUM BR 0.02% INH SOLN 0.5 MG/2.5 ML VIAL INHALATION ×2 (01:44→06:16)
[2019-08-05 04:40] LABS: Hematocrit 35.8 % (42.0-52.0); Hemoglobin 11.9 g/dL (14.0-18.0); Mean Corpuscular HGB Conc 33.2 g/dl (32-36); Mean Corpuscular Hemoglobin 34.5 pg (26-34); Mean Corpuscular Volume 103.8 fl (80-100); Mean Platelet Volume 9.7 fl (7.4-10.4); Platelet Count Result 247 k/mm3 (150-375); Red Blood Count 3.45 M/mm3 (4.6-6.20); Red Cell Distribution Width 12.6 % (11.5-14.5); White Blood Count 9.6 K/mm3 (4.5-10.0)
[2019-08-05 04:57] LABS: Blood Urea Nitrogen 10 mg/dL (9-20); Calcium 8.1 mg/dL (8.4-10.2); Carbon Dioxide 31 mmol/L (22-30); Chloride 105 mmol/L (98-107); Estimated CRCL calculation 107 ml/min; Estimated Glomerular Filt Rate > 60; Glucose 118 mg/dL (75-110); Potassium 3.7 mmol/L (3.4-5.0); Sodium 135 mmol/L (137-145)
[2019-08-05] MEDS: LANSOPRAZOLE ORAL SUSP 30 MG/10 ML ORAL.SUSP PO (08:29)
[2019-08-05] MEDS: CIPROFLOXACIN 400 MG/D5W 200ML 200 ML 200 MG IVPB (08:29)
[2019-08-05] MEDS: POTASSIUM CHLORIDE 10 MEQ TABLET.ER 40 MEQ PO (08:33)
[2019-08-05] MEDS: predniSONE 10 MG TABLET 30 MG PO (08:34)
[2019-08-05] MEDS: PRAVASTATIN SODIUM 20 MG TABLET 40 MG PO (08:34)
[2019-08-05] MEDS: CHOLECALCIFEROL 1,000 UNIT TABLET 5000 UNITS PO (08:35)
[2019-08-05] MEDS: THIAMINE HCL 100 MG TABLET PO (08:36)
[2019-08-05] MEDS: FOLIC ACID 1 MG TABLET PO (08:36)
[2019-08-05] MEDS: carvediloL 6.25 MG TABLET PO ×2 (08:38→20:30)
--- NOTE | 2019-08-05 09:39 | PM.PNCARD ---
Progress Note: A&P Additional Plan 69-year-old man with : Atrial fibrillation previously paroxysmal now will be chronic. The patient is very well rate controlled and is asymptomatic. As we have been seeing in our notes he is not a safe candidate for systemic anticoagulation. No changes in cardiac regimen to suggest today Ethanol abuse Evidence of cholecystitis which is being treated conservatively. Plan regarding how long he will be hospitalized for this is unclear. Donavan Monahan MD FACC: Subjective Date/time seen: Date of service: 08/05/19 09:39 Interval history: Follow-up visit in 69-year-old patient with chronic persistent atrial fibrillation Patient reports to be asymptomatic he was sleeping flat in bed when I entered the room upon awakening offers no complaints and feels well. Exam Const: General: comfortable and no acute distress HENMT: Mouth: Yes moist mucous membranes Eyes: Sclera: sclerae normal Pupils: Equal, round and reactive pupils present Neck: Neck: supple and no JVD Thyroid: thyroid normal Resp: Effort & Inspection: normal respiratory effort Auscultation: clear to auscultation bilaterally Cardio: Rhythm: abnormal rhythm irregularly irregular GI: Auscultation: normal bowel sounds Neuro: Cognition (Neuro): normal cognition Other: Seems essentially lucid today with appropriate mentation Extrem: General: normal to inspection Objective Data Vital Signs Vital Signs: Vital Signs - 24 hr 08/04/19 10:00 08/04/19 11:42 08/04/19 12:00 Temperature 36.5 C Pulse Rate 108 H 106 H 110 H Pulse Rate [Bilateral Pedal (Dorsalis Pedis) Palpation] Respiratory Rate 18 Blood Pressure 132/93 H Pulse Oximetry 95 08/04/19 14:00 08/04/19 14:25 08/04/19 14:30 Temperature Pulse Rate 108 H 113 H Pulse Rate [Bilateral Pedal (Dorsalis Pedis) Palpation] Respiratory Rate 18 Blood Pressure Pulse Oximetry 94 08/04/19 14:37 08/04/19 15:51 08/04/19 16:00 Temperature 36.3 C L Pulse Rate 94 108 H 94 Pulse Rate [Bilateral Pedal (Dorsalis Pedis) Palpation] Respiratory Rate 20 22 H Blood Pressure 145/97 H Pulse Oximetry 96 08/04/19 18:40 08/04/19 19:31 08/04/19 19:35 Temperature Pulse Rate 139 H 104 H Pulse Rate [Bilateral Pedal (Dorsalis Pedis) Palpation] Respiratory Rate 18 Blood Pressure Pulse Oximetry 95 08/04/19 19:40 08/04/19 20:00 08/04/19 20:08 Temperature 36.6 C Pulse Rate 102 H 113 H Pulse Rate [Bilateral Pedal (Dorsalis Pedis) Palpation] 108 H Respiratory Rate 18 20 Blood Pressure 128/88 Pulse Oximetry 100 93 08/04/19 21:15 08/04/19 22:00 08/04/19 23:40 Temperature 36.7 C Pulse Rate 113 H 93 104 H Pulse Rate [Bilateral Pedal (Dorsalis Pedis) Palpation] Respiratory Rate 20 Blood Pressure 165/88 H Pulse Oximetry 97 08/05/19 00:00 08/05/19 01:44 08/05/19 01:49 Temperature Pulse Rate 101 H 94 102 H Pulse Rate [Bilateral Pedal (Dorsalis Pedis) Palpation] 101 H Respiratory Rate 18 18 Blood Pressure Pulse Oximetry 08/05/19 02:00 08/05/19 04:00 08/05/19 06:00 Temperature 36.6 C Pulse Rate 107 H 81 117 H Pulse Rate [Bilateral Pedal (Dorsalis Pedis) Palpation] 97 Respiratory Rate 20 Blood Pressure 133/71 Pulse Oximetry 96 08/05/19 06:17 08/05/19 06:19 08/05/19 06:24 Temperature Pulse Rate 104 H 106 H Pulse Rate [Bilateral Pedal (Dorsalis Pedis) Palpation] Respiratory Rate 18 18 Blood Pressure Pulse Oximetry 94 08/05/19 08:38 08/05/19 08:48 Temperature 36.3 C L Pulse Rate 121 H 112 H Pulse Rate [Bilateral Pedal (Dorsalis Pedis) Palpation] Respiratory Rate 26 H Blood Pressure 168/88 H Pulse Oximetry 97 Intake/Output Intake/Output: Intake & Output 08/02/19 08/03/19 08/04/19 08/05/19 23:59 23:59 23:59 23:59 Intake Total 2147 2493 1833 100 Output Total 1650 3200 2150 650 Balance 497 -707 -317 -550 Meds/Results Medications:
--- NOTE | 2019-08-05 13:59 | PM.IMPN ---
Progress Note: A&P Assessment and Plan (1) Altered mental status: Qualifiers: Altered mental status type: unspecified Qualified Code(s): R41.82 - Altered mental status, unspecified Code(s): R41.82 - Altered mental status, unspecified Status: Acute Assessment and Plan: [place] to be associated with etoh withdrawal and benzodiazepines. Repeat ammonia is normal 07/30. Repeat urinalysis 07/30 is unremarkable. Recent ABG with no hypercapnia. CT brain on arrival with no acute findings. Benzos placed on hold. Patient's mental status much improved. Continue to monitor. (2) Chronic alcohol use: Code(s): Z72.89 - Other problems related to lifestyle Status: Chronic Assessment and Plan: Initially 3 margaritas daily was reported but now coming to light that he may drink up to one bottle of tequila daily. Very somnolent so Librium and ativan placed on hold and mental status is much improved. No evidence of withdrawal symptoms at this time. Continue monitoring with CIWA. Continue folic acid and thiamine. (3) Atrial fibrillation with rapid ventricular response: Code(s): I48.91 - Unspecified atrial fibrillation Status: Acute Assessment and Plan: HR elevated at times. Currently on Diltiazem. Diltiazem IV changed to p.o.and increased back to his home dose of 360mg daily. His home regimen also includes oral carvedilol and this was resumed yesterday. Echocardiogram showing EF of 45-50% with mild valvular disease and biatrial dilation. Patient is not a candidate for anticoagulation at this time. Appreciate Cardiology input. Continue Coreg. Resume ARB. (4) Acute cholecystitis: Code(s): K81.0 - Acute cholecystitis Status: Acute Assessment and Plan: Appreciate General surgery recommendations. Agree that he is a poor surgical candidate at this time. Noted Dr Gonzales's plan to continue medical management with antibiotics for now since he is improving and reevaluate if surgical intervention is necessary. Ciprofloxacin and flagyl (day 11). Abdominal exam is benign today. Patient eating normally. Stop abx. Stool guaiac positive. This was ordered from 07/25 for workup of his abd pain. Hgb mildly low but stable in the 12-13 range. Consider gastritis or from hemorrhoids. He will need further evaluation but could wait for outpatient settings. Continue Prevacid. (5) Acute respiratory failure: Qualifiers: Respiratory failure complication: hypoxia Qualified Code(s): J96.01 - Acute respiratory failure with hypoxia Code(s): J96.00 - Acute respiratory failure, unspecified whether with hypoxia or hypercapnia Status: Acute Assessment and Plan: Acute respiratory failure with hypoxia. CXR 08/02 showing stable airspace opacities in bilateral lower lobe. IV Lasix 07/30 ,08/01 and 08/02 with UOP of 2.1L yesterday. Echo as mentioned above. Lung exam benign and patient able to come off oxygen. Change nebulizers to p.r.n.. (6) COPD exacerbation: Code(s): J44.1 - Chronic obstructive pulmonary disease with (acute) exacerbation Status: Acute Assessment and Plan: CTA 07/25 showing emphysema but no PE. No wheezing. He continues on oral prednisone taper and bronchodilator therapy. (7) Syncopal episodes: Qualifiers: Syncope type: unspecified Qualified Code(s): R55 - Syncope and collapse Code(s): R55 - Syncope and collapse Status: Acute Assessment and Plan: Some inconsistencies in history reported. EMS report states they were called due to weakness, abdominal pain, and multiple recent ground-level falls and when they found him, he was sitting up in recliner alert and oriented x 4. CT brain with no acute findings. Possibly mechanical falls secondary to alcohol. Appears to be recovering well. Continue PT and OT. Placement being considered at discharge. (8) Hypokalemia: Code(s):
--- NOTE | 2019-08-05 14:19 | PCOTNOTE ---
Attempted to see patient this pm, however patient was unavailable with nursing staff at this time.
[2019-08-05] MEDS: OLMESARTAN MEDOXOMIL 20 MG TABLET PO (16:48)
--- NOTE | 2019-08-05 17:14 | PC.NURSE ---
This patient, Lloyd Redman, was transferred to [facility] on 08/05/19 at 1714. Personal belongings sent with patient. Report given to Damir NOLASCO. Appropriate documentation sent with patient.
[2019-08-05] MEDS: TERAZOSIN HCL 5 MG CAPSULE 10 MG PO (20:30)
[2019-08-06] VITALS (17 sets, daily range): BP systolic 125–165; BP diastolic 70–94; PULSE 85–123; RESP 14–20; TEMP 36.1–37.1; O2SAT 89–98
[2019-08-06] MEDS: LEVALBUTEROL NEB 1.25 MG/3 ML 0.63 MG INHALATION (02:25)
[2019-08-06] MEDS: IPRATROPIUM BR 0.02% INH SOLN 0.5 MG/2.5 ML VIAL INHALATION (02:26)
[2019-08-06] MEDS: POTASSIUM CHLORIDE 10 MEQ TABLET.ER 40 MEQ PO (09:09)
[2019-08-06] MEDS: FOLIC ACID 1 MG TABLET PO (09:10)
[2019-08-06] MEDS: carvediloL 6.25 MG TABLET PO ×2 (09:10→13:42)
[2019-08-06] MEDS: PRAVASTATIN SODIUM 20 MG TABLET 40 MG PO (09:10)
[2019-08-06] MEDS: THIAMINE HCL 100 MG TABLET PO (09:11)
[2019-08-06] MEDS: predniSONE 20 MG TABLET PO (09:11)
[2019-08-06] MEDS: CHOLECALCIFEROL 1,000 UNIT TABLET 5000 UNITS PO (09:11)
[2019-08-06] MEDS: OLMESARTAN MEDOXOMIL 20 MG TABLET PO (09:12)
[2019-08-06] MEDS: LANSOPRAZOLE ORAL SUSP 30 MG/10 ML ORAL.SUSP PO (09:12)
--- NOTE | 2019-08-06 10:13 | PM.PNCARD ---
Progress Note: A&P Assessment and Plan (1) Atrial fibrillation with rapid ventricular response: Code(s): I48.91 - Unspecified atrial fibrillation Status: Acute Assessment and Plan: Echocardiogram: Left ventricular chamber dimension is normal. Left ventricular systolic function is mildly reduced, estimated at 45-50%. There is mild mitral valve regurgitation. . There is mild aortic valve sclerosis. Biatrial dilation. Increase carvedilol to 12.5 mg p.o. b.i.d. potassium chloride 40 mg p.o. x1 Alcohol withdrawal management per hospitalist. (2) Chronic alcohol use: Code(s): Z72.89 - Other problems related to lifestyle Status: Chronic (3) COPD exacerbation: Code(s): J44.1 - Chronic obstructive pulmonary disease with (acute) exacerbation Status: Acute (4) Altered mental status: Qualifiers: Altered mental status type: unspecified Qualified Code(s): R41.82 - Altered mental status, unspecified Code(s): R41.82 - Altered mental status, unspecified Status: Acute Subjective Date/time seen: 08/06/19 10:13 Interval history: Follow-up visit in 69-year-old patient with chronic persistent atrial fibrillation Date of service 08/06/2019: More coherent today. No chest pain or shortness of breath Review of Systems Review of Systems: All systems reviewed & are unremarkable except as noted in HPI and below ROS unobtainable: Yes unobtainable due to mental status (Still mumbling and is difficult to understand.) Constitutional: Constitutional: Denies body ache(s) Eyes: Eyes: Reports loss of vision ENT: Denies dizziness, Reports dry mouth, Reports hearing loss and Denies epistaxis Cardiovascular: Cardiovascular: Denies chest pain and Denies dyspnea Respiratory: Respiratory: Denies dyspnea and Denies wheezing Gastrointestinal: Gastrointestinal: Denies abdominal pain Genitourinary: Genitourinary: Denies hematuria Musculoskeletal: Musculoskeletal: Reports abnormal gait and Denies arthralgias Neurologic: Reports Abnormal speech present, Reports abnormal gait, Denies dizziness, Reports loss of vision and Reports memory loss Psychiatric: Psychiatric: Reports memory loss Hematologic/Lymphatic: Hematologic/Lymphatic: Denies easy bruising Allergic/Immunologic: Allergic/Immunologic: Denies wheezing Exam Const: General: cooperative, comfortable and no acute distress Nutritional Appearance: obese Orientation/consciousness: oriented to person and oriented to place Other: alert HENMT: General nose exam: Normal nares present and no epistaxis Mouth: Yes moist mucous membranes Eyes: Sclera: sclerae normal and scleral abnormality bilateral Pupils: Equal, round and reactive pupils present Neck: Neck: supple and no JVD Thyroid: thyroid normal Carotids: no bruits Other: Exam for JVD difficult as he is somewhat overweight with a thick neck Chest: Chest palpation & inspection: normal inspection of the chest Resp: Effort & Inspection: normal respiratory effort Auscultation: clear to auscultation bilaterally, wheezes expiratory wheezes and throughout and diminished lung sounds on the right in the lower lung herrera Other: Diffuse expiratory wheezing/rhonchi in both lung herrera Cardio: Rate: tachycardic Rhythm: abnormal rhythm irregularly irregular Heart sounds: no gallops, no murmurs and no rubs GI: Auscultation: normal bowel sounds Urinary Catheter: Urinary Catheter: urine dark Skin: General skin exam: normal color, rashes and/or lesions noted and no erythema Other: Warm Neuro: General: oriented to person, oriented to place and other (Mumbling. Difficult to understand at times.) Cranial nerves: Yes Equal, round and reactive pupils present Cognition (Neuro): normal cognition and abnormal cognition Speech: Abnormal speech present garbled Other: Seems essentially lucid today with appropriate mentation Extrem: General: normal to i
--- NOTE | 2019-08-06 11:00 | PCPTNOTE ---
Patient refused treatment this session. Pt states that he did not sleep well and is tired this morning.
--- NOTE | 2019-08-06 12:04 | PM.IMPN ---
Progress Note: A&P Assessment and Plan (1) Chronic alcohol use: Code(s): Z72.89 - Other problems related to lifestyle Status: Chronic Assessment and Plan: Initially 3 margaritas daily was reported but now coming to light that he may drink up to one bottle of tequila daily. Very somnolent so Librium and ativan placed on hold and mental status is much improved. No evidence of withdrawal symptoms at this time. Continue folic acid and thiamine. (2) Atrial fibrillation with rapid ventricular response: Code(s): I48.91 - Unspecified atrial fibrillation Status: Acute Assessment and Plan: HR still elevated at times. Diltiazem IV changed to p.o.and increased back to his home dose of 360mg daily. His home regimen also includes oral carvedilol and this was resumed on 08/03. Echo showing EF of 45-50% with mild valvular disease and biatrial dilation. Patient is not a candidate for anticoagulation at this time. HR poorly controlled so Coreg advanced. Appreciate Cardiology input. (3) CHF (congestive heart failure): Qualifiers: Heart failure chronicity: chronic Heart failure type: systolic Qualified Code(s): I50.22 - Chronic systolic (congestive) heart failure Code(s): I50.9 - Heart failure, unspecified Status: Acute Assessment and Plan: Echo showing EF of 45-50% with mild valvular disease and biatrial dilation. He is back on Coreg. Benicar added back as well. (4) Altered mental status: Qualifiers: Altered mental status type: unspecified Qualified Code(s): R41.82 - Altered mental status, unspecified Code(s): R41.82 - Altered mental status, unspecified Status: Acute Assessment and Plan: [place] to be associated with EtOH withdrawal and benzodiazepines. Repeat ammonia is normal 07/30. Repeat urinalysis 07/30 is unremarkable. Recent ABG with no hypercapnia. CT brain on arrival with no acute findings. Benzos placed on hold. Patient's mental status much improved. Continue to monitor. (5) Acute cholecystitis: Code(s): K81.0 - Acute cholecystitis Status: Acute Assessment and Plan: Appreciate General surgery recommendations. Agree that he is a poor surgical candidate at this time. Noted Dr Gonzales's plan for medical management with antibiotics. Sx improved. Completed course of Ciprofloxacin and flagyl (day 11). Abdominal exam remains benign. Patient eating normally. Stool guaiac positive. This was ordered from 07/25 for workup of his abd pain. Hgb mildly low but stable in the 12-13 range. Consider gastritis or from hemorrhoids. He will need further evaluation but could wait for outpatient settings. Continue Prevacid. (6) Acute respiratory failure: Qualifiers: Respiratory failure complication: hypoxia Qualified Code(s): J96.01 - Acute respiratory failure with hypoxia Code(s): J96.00 - Acute respiratory failure, unspecified whether with hypoxia or hypercapnia Status: Acute Assessment and Plan: Acute respiratory failure with hypoxia. CXR 08/02 showing stable airspace opacities in bilateral lower lobe. IV Lasix 07/30 ,08/01 and 08/02 with good UOP and negative fluid balance. Echo as mentioned above. Mild hypoxia at night and back on O2. (7) COPD exacerbation: Code(s): J44.1 - Chronic obstructive pulmonary disease with (acute) exacerbation Status: Acute Assessment and Plan: CTA 07/25 showing emphysema but no PE. No wheezing. He continues on oral prednisone taper and bronchodilator therapy prn. (8) Syncopal episodes: Qualifiers: Syncope type: unspecified Qualified Code(s): R55 - Syncope and collapse Code(s): R55 - Syncope and collapse Status: Acute Assessment and Plan: Some inconsistencies in history reported. EMS report states they were called due to weakness, abdominal pain, and multiple recent ground-level falls and
--- NOTE | 2019-08-06 13:30 | PM.DS ---
DS: Diagnosis Admitting Diagnosis Admitting Diagnosis: Unspecified abdominal pain Discharge Diagnosis (1) Chronic alcohol use: Code(s): Z72.89 - Other problems related to lifestyle Status: Chronic Assessment and Plan: Initially 3 margaritas daily was reported but now coming to light that he may drink up to one bottle of tequila daily. Very somnolent so Librium and ativan placed on hold and mental status is much improved. No evidence of withdrawal symptoms at this time. Treated with folic acid and thiamine. (2) Atrial fibrillation with rapid ventricular response: Code(s): I48.91 - Unspecified atrial fibrillation Status: Acute Assessment and Plan: HR still elevated at times. Diltiazem IV changed to p.o.and increased back to his home dose of 360mg daily. His home regimen also includes oral carvedilol and this was resumed on 08/03. Echo showing EF of 45-50% with mild valvular disease and biatrial dilation. Patient is not a candidate for anticoagulation at this time. HR poorly controlled so Coreg advanced. Discussed with Cardiology. Cardiology feels patient could be discharged safely. (3) CHF (congestive heart failure): Qualifiers: Heart failure type: systolic Heart failure chronicity: chronic Qualified Code(s): I50.22 - Chronic systolic (congestive) heart failure Code(s): I50.9 - Heart failure, unspecified Status: Acute Assessment and Plan: Echo showing EF of 45-50% with mild valvular disease and biatrial dilation. He is back on Coreg. Benicar added back as well. (4) Altered mental status: Qualifiers: Altered mental status type: unspecified Qualified Code(s): R41.82 - Altered mental status, unspecified Code(s): R41.82 - Altered mental status, unspecified Status: Acute Assessment and Plan: [place] to be associated with EtOH withdrawal and benzodiazepines. Repeat ammonia is normal 07/30. Repeat urinalysis 07/30 is unremarkable. Recent ABG with no hypercapnia. CT brain on arrival with no acute findings. Benzos placed on hold. Patient's mental status much improved. Continue to monitor. (5) Acute cholecystitis: Code(s): K81.0 - Acute cholecystitis Status: Acute Assessment and Plan: Appreciate General surgery recommendations. Agree that he is a poor surgical candidate at this time. Noted Dr Gonzales's plan for medical management with antibiotics. Sx improved. Completed course of Ciprofloxacin and flagyl (day 11). Abdominal exam remains benign. Patient eating normally. Stool guaiac positive. This was ordered from 07/25 for workup of his abd pain. Hgb mildly low but stable in the 12-13 range. Consider gastritis or from hemorrhoids. He will need further evaluation but could wait for outpatient settings. Continue Prevacid. (6) Acute respiratory failure: Qualifiers: Respiratory failure complication: hypoxia Qualified Code(s): J96.01 - Acute respiratory failure with hypoxia Code(s): J96.00 - Acute respiratory failure, unspecified whether with hypoxia or hypercapnia Status: Acute Assessment and Plan: Acute respiratory failure with hypoxia. CXR 08/02 showing stable airspace opacities in bilateral lower lobe. IV Lasix 07/30 ,08/01 and 08/02 with good UOP and negative fluid balance. Echo as mentioned above. Mild hypoxia at night and back on O2. (7) COPD exacerbation: Code(s): J44.1 - Chronic obstructive pulmonary disease with (acute) exacerbation Status: Acute Assessment and Plan: CTA 07/25 showing emphysema but no PE. No wheezing. He continues on oral prednisone taper and bronchodilator therapy prn. (8) Syncopal episodes: Qualifiers: Syncope type: unspecified Qualified Code(s): R55 - Syncope and collapse Code(s): R55 - Syncope and collapse Status: Acute Assessment and Plan: Some inconsistencies in histor
--- NOTE | 2019-08-06 16:39 | PC.NURSE ---
Attempted to call report to [facility] at 1515, the nurse at [facility] to call back for report. Second attempt made at 1630, call was disconnected two times. On fourth attempt, RN at [facility] unavailable to take report and she will call when she is available. computer specialist aware of delay in transfer.
== END 2019-08-06 19:15 | DRG 444 ==
LOC: ANHED 22:14 → ANHIMU 22:18 → ANH3MEDSUR 08-06 11:57 → ANHIMU 08-07 09:27
PROVIDERS: Internal Medicine; Physician Assistant; Admitting Provider Internal Medicine; Emergency Provider Emergency Medicine; Visit Provider Internal Medicine
DX: K81.0 Acute cholecystitis (principal); J96.01 Acute respiratory failure with hypoxia; I48.19 Other persistent atrial fibrillation; F10.239 Alcohol dependence with withdrawal, unspecified; J44.1 Chronic obstructive pulmonary disease with (acute) exacerbation; I50.22 Chronic systolic (congestive) heart failure; I11.0 Hypertensive heart disease with heart failure; R55 Syncope and collapse; E87.6 Hypokalemia; K21.9 Gastro-esophageal reflux disease without esophagitis; E78.5 Hyperlipidemia, unspecified; E55.9 Vitamin D deficiency, unspecified; D72.829 Elevated white blood cell count, unspecified; D53.9 Nutritional anemia, unspecified; F17.200 Nicotine dependence, unspecified, uncomplicated; N40.0 Benign prostatic hyperplasia without lower urinary tract symptoms; R29.6 Repeated falls; Z86.73 Personal history of transient ischemic attack (TIA), and cerebral infarction without residual deficits; Z98.42 Cataract extraction status, left eye; Z98.41 Cataract extraction status, right eye
CPT/HCPCS: 36415; 36600; 70450; 71045; 71275; 74018; 74176; 80048; 80053; 80076; 80307; 81001; 82140; 82274; 82375; 82550; 82607; 82746; 82805; 83036; 83050; 83605; 83690; 83735; 83880; 84100; 84439; 84443; 84480; 84484; 85025; 85027; 85610; 85730; 87040; 87086; 87635; 93005; 93306; 94640; 94668; 96365; 96366; 96375; 97110; 97116; 97161; 97165; 97530; 99285; A9270; G0378; J0744; J1160; J1940; J2060; J2930; J3411; J3475; J3480; J7030; J7040; J7120; J7512; Q9967; U0003

== ENCOUNTER 2019-08-06 20:16 | Observation (INO) | payer MEDICARE, SELFPAY ==
[2019-08-06 20:21] VITALS: BP 162/104; PULSE 60; RESP 18; TEMP 36.4; O2SAT 96
--- NOTE | 2019-08-06 20:37 | ED.GENADULT ---
HPI - General Adult General Chief complaint: Unspecified Stated complaint: nh refused pt Time Seen by Provider: 08/06/19 20:21 History of Present Illness HPI narrative: 69 yo male c/o being turned away by correction. He was discharged from this hospital today to [facility]. On arrival to the correction they refused to admit him due to the fact that he had not been tested for COVID-19. He reports not symptoms at this time. Related Data Home Medications Medication Instructions Recorded Confirmed aspirin 325 mg PO DAILY 07/25/19 08/07/19 carvedilol 12.5 mg PO BID 07/25/19 08/07/19 cholecalciferol (vitamin D3) 125 mcg PO DAILY 07/25/19 08/07/19 [Vitamin D3] diltiazem HCl 360 mg PO DAILY 07/25/19 08/07/19 lansoprazole 30 mg PO DAILY 07/25/19 08/07/19 olmesartan-hydrochlorothiazide 1 tablet PO DAILY 07/25/19 08/07/19 potassium chloride 10 meq PO DAILY 07/25/19 08/07/19 pravastatin 40 mg PO QAM 07/25/19 08/07/19 terazosin 10 mg PO HS 07/25/19 08/07/19 Allergies Allergy/AdvReac Type Severity Reaction Status Date / Time Penicillins Allergy Severe Hives / Verified 07/25/19 23:36 Red Face Review of Systems Review of Systems: All systems reviewed & are unremarkable except as noted in HPI and below Constitutional: Constitutional: Denies chills and Denies fever(s) ENT: Denies sore throat Cardiovascular: Cardiovascular: Denies chest pain Respiratory: Respiratory: Denies cough and Denies dyspnea Neurologic: Denies dizziness and Denies weakness [facility] Past Medical History Medical History CHF (congestive heart failure) Essential hypertension GERD (gastroesophageal reflux disease) Histoplasmosis History of BPH History of TIAs Hyperlipidemia Vitamin D deficiency Surgical History Surgical History History of bilateral cataract extraction History of vasectomy Male circumcision Family History Family History Sibling Polio Father Lung cancer Mother Hypertension Social History Social History Social History: Patient drinks (3) 4 oz drinks of Tequila a day, smokes a pack and half a day for 55 years, would like to be a full code. Surrogate decision maker is Raine phone number [phone]. Smoking packs per day: 1.5 Smoking cigarettes per day: 30.0 Years smoked: 54 Smoking pack-years: 81.00 Smoking status: Current every day smoker Tobacco type: cigarettes Alcohol intake: current Drinks per week: 3 Substance use: never Substance use type: marijuana Last use: 1970 Additional living arrangements comments: He lives at home with his . Gender identity (if verbalized by the patient): Male Spiritual care concerns: No Agree to blood products: Yes Exam Const: General: no acute distress and alert Nutritional Appearance: well nourished Orientation/consciousness: patient oriented x3 HENMT: Head: normal to inspection Resp: Effort & Inspection: normal respiratory effort Auscultation: clear to auscultation bilaterally Cardio: Rate: regular rate Rhythm: regular rhythm GI: GI Palp: Yes Soft to palpation and No Tenderness to palpation present (GI) Skin: General skin exam: normal color Neuro: General: patient oriented x3, moves all extremities, no focal motor deficits and CN's II-XI intact bilaterally Speech: normal speech Psych: Mental Status: mental status grossly normal Affect: normal affect Course Vital Signs Vital signs: Vital Signs Temperature 36.4 C L 08/06/19 20:21 Pulse Rate 60 08/06/19 20:21 Respiratory Rate 18 08/06/19 20:21 Blood Pressure 162/104 H 08/06/19 20:21 Pulse Oximetry 96 08/06/19 20:21 Temperature 36.6 C 08/07/19 02:00 Pulse Rate 98 08/07/19 02:00 Respiratory Rate 16
[2019-08-06 21:46] VITALS: BP 168/89; PULSE 58; RESP 16; O2SAT 94
[2019-08-06 23:06] VITALS: PULSE 62; RESP 16; O2SAT 94
[2019-08-06 23:10] VITALS: BP 152/81; PULSE 117; RESP 16; TEMP 36.6; O2SAT 90; BMI 28.4
--- NOTE | 2019-08-06 23:10 | ADMGEN ---
This patient, Lloyd Redman, was admitted to [facility] Surg Room 324-01. Patient/family oriented to hospital policies and general routines including ID bracelet, bed and alarms, visiting hours, pain management, procedures, bathroom and other care routines, personal items, smoking policy, room service/diet, and visiting hours. Valuables list has been completed. Information on how to activate the Rapid Response Team has been discussed. Patient/Family are encouraged to report perceived risks to care and to ask questions if they do not understand what they are told or what they should do.
[2019-08-07] VITALS (7 sets, daily range): BP systolic 140–160; BP diastolic 84–99; PULSE 57–102; RESP 16–20; TEMP 35.9–36.6; O2SAT 90–100
[2019-08-07 08:04] LABS: SARS-CoV-2 RNA PCR Negative
[2019-08-07] MEDS: CHOLECALCIFEROL 1,000 UNIT TABLET 5000 UNITS PO (08:18)
[2019-08-07] MEDS: OLMESARTAN MEDOXOMIL 20 MG TABLET 40 MG PO (08:18)
[2019-08-07] MEDS: carvediloL 12.5 MG TABLET PO (08:19)
[2019-08-07] MEDS: POTASSIUM CHLORIDE 10 MEQ TABLET.ER PO (08:20)
[2019-08-07] MEDS: FOLIC ACID 1 MG TABLET PO (08:20)
[2019-08-07] MEDS: PRAVASTATIN SODIUM 20 MG TABLET 40 MG PO (08:20)
[2019-08-07] MEDS: predniSONE 20 MG TABLET PO (08:20)
[2019-08-07] MEDS: THIAMINE HCL 100 MG TABLET PO (08:21)
[2019-08-07] MEDS: hydroCHLOROthiazide 12.5 MG CAPSULE PO (08:21)
[2019-08-07] MEDS: LANSOPRAZOLE ORAL SUSP 30 MG/10 ML ORAL.SUSP PO (09:11)
--- NOTE | 2019-08-07 13:18 | PM.SD ---
Same Day Admit/Disch: HPI History of Present Illness Chief complaint: Possible exposure to virus Narrative: Lloyd Redman is a 69 year old male recently hospitalized for atrial fib who was refused by the skilled facility due to concern for COVID and thus sent back to the emergency room. Patient was discharged August 05 to [facility] facility. Upon arrival at the facility, the ambulance worker told the staff that the patient was being housed on a COVID floor but no COVID testing performed. Patient was sent back to the emergency room for this reason. COVID testing had not been required prior to initial discharge. Patient was not housed on a COVID floor during his hospitalization. In the emergency room patient was hemodynamically stable. Patient had no complaints. He was admitted and underwent COVID testing which was negative. Patient has no complaints today. He denies shortness of breath or cough. No chest pain. Patient talks about meatal tearing related to Coombs catheter. Exam is normal and patient then states he was just concerned about long-term ramifications of a prior tear. [facility] Past Medical History Medical History (Updated 08/07/19 @ 13:24 by Valentino Ferrari MD) Atrial fibrillation CHF (congestive heart failure) COPD (chronic obstructive pulmonary disease) Essential hypertension GERD (gastroesophageal reflux disease) Histoplasmosis History of BPH History of TIAs Hyperlipidemia Vitamin D deficiency Surgical History Surgical History History of bilateral cataract extraction History of vasectomy Male circumcision Family History Family History Sibling Polio Father Lung cancer Mother Hypertension Social History Social History Social History: Patient drinks (3) 4 oz drinks of Tequila a day, smokes a pack and half a day for 55 years, would like to be a full code. Surrogate decision maker is Raine phone number [phone]. Smoking packs per day: 1.5 Smoking cigarettes per day: 30.0 Years smoked: 54 Smoking pack-years: 81.00 Smoking status: Current every day smoker Tobacco type: cigarettes Alcohol intake: current Drinks per week: 3 Substance use: never Substance use type: marijuana Last use: 1970 Additional living arrangements comments: He lives at home with his . Gender identity (if verbalized by the patient): Male Spiritual care concerns: No Agree to blood products: Yes Same Day Admit/Disch: Med Pre-admit Medications Home Medications Medication Instructions Recorded Confirmed Type aspirin 325 mg PO DAILY 07/25/19 08/07/19 History carvedilol 12.5 mg PO BID 07/25/19 08/07/19 History cholecalciferol (vitamin D3) 125 mcg PO DAILY 07/25/19 08/07/19 History [Vitamin D3] diltiazem HCl 360 mg PO DAILY 07/25/19 08/07/19 History lansoprazole 30 mg PO DAILY 07/25/19 08/07/19 History olmesartan-hydrochlorothiazide 1 tablet PO DAILY 07/25/19 08/07/19 History potassium chloride 10 meq PO DAILY 07/25/19 08/07/19 History pravastatin 40 mg PO QAM 07/25/19 08/07/19 History terazosin 10 mg PO HS 07/25/19 08/07/19 History folic acid 1 mg PO DAILY #30 tablet 08/06/19 08/07/19 Rx prednisone 20 mg PO DAILY@0800 #4 tablet 08/06/19 08/07/19 Rx thiamine HCl (vitamin B1) [Vitamin 100 mg PO QAM #30 tablet 08/06/19 08/07/19 Rx B-1] Exam Narrative: Exam Narrative: AF 97.5 157/99 102 18 96% ra Gen - NARD lying almost flat in bed. HEENT - NC/AT, sclera clear but appear glassy. Moist mucous membranes. Neck - supple Chest - CTA bilaterally, nml RR CV -irregularly-irregular. S1-S2. Abd - Soft, NT/ND, Positive BS -patient is circumcised. Meatus opening is normal. No tears noted. Ext - No pedal edema Neuro - Alert and oriented x4. Nonfocal exam. Psych - Nml mood and affect Skin - Warm and dry DS:
== END 2019-08-07 17:27 ==
LOC: ANHED 21:46 → ANH3MEDSUR 22:20
PROVIDERS: Admitting Provider Internal Medicine; Emergency Provider Emergency Medicine; Visit Provider Internal Medicine
DX: Z03.818 Encounter for observation for suspected exposure to other biological agents ruled out (principal); I48.91 Unspecified atrial fibrillation; J44.9 Chronic obstructive pulmonary disease, unspecified; I11.0 Hypertensive heart disease with heart failure; I50.22 Chronic systolic (congestive) heart failure; K21.9 Gastro-esophageal reflux disease without esophagitis; F17.210 Nicotine dependence, cigarettes, uncomplicated; E78.5 Hyperlipidemia, unspecified; E55.9 Vitamin D deficiency, unspecified; N40.0 Benign prostatic hyperplasia without lower urinary tract symptoms; Z72.89 Other problems related to lifestyle; Z79.82 Long term (current) use of aspirin; Z79.899 Other long term (current) drug therapy; Z86.73 Personal history of transient ischemic attack (TIA), and cerebral infarction without residual deficits; Z88.0 Allergy status to penicillin
CPT/HCPCS: 87635; 99285; A9270; G0378; J7512; U0003

== ENCOUNTER 2019-09-23 15:49 | Outpatient (CLI) | payer MEDICARE, OTHER, SELFPAY ==
--- NOTE | ~2019-09-23 | US_ITS ---
EXAMINATION: US venous doppler LE RT DATE: 09/23/2019 16:24 INDICATION: Right lower limb swelling TECHNIQUE: Grayscale ultrasound images without and with compression and Doppler ultrasound images of the right lower extremity veins were obtained. COMPARISON: None. FINDINGS: The visualized portions of right common femoral vein, profunda (deep) femoral vein, femoral vein, pop liteal vein, peroneal trunk, posterior tibial veins, peroneal veins, gastrocnemius vein and greater s aphenous vein outflow are patent. IMPRESSION: 1. No deep venous thrombosis in the right lower limb. Reviewed, dictated and finalized at location A.
== END 2019-09-23 15:50 | disposition home or self-care (01) ==
PROVIDERS: PCP Family Medicine; Visit Provider Family Medicine
DX: R60.0 Localized edema (principal)
CPT/HCPCS: 93971

== ENCOUNTER 2019-09-25 12:03 | Outpatient (CLI) | payer MEDICARE, OTHER, SELFPAY ==
[2019-09-25 12:56] LABS: NT Pro B Type Natriuretic Pept 2200 PG/ML (5-100)
== END 2019-09-25 12:04 | disposition home or self-care (01) ==
PROVIDERS: PCP Family Medicine; Visit Provider Family Medicine
DX: I48.91 Unspecified atrial fibrillation (principal); R60.0 Localized edema
CPT/HCPCS: 36415; 83880

== ENCOUNTER 2019-10-01 14:33 | Outpatient (CLI) | payer MEDICARE, OTHER, SELFPAY ==
[2019-10-01 15:44] LABS: Basophils Percent Auto 0.2 % (0.2-1.2); Eosinophils Percent Auto 0.1 % (0-4.4); Hematocrit 37.4 % (42.0-52.0); Hemoglobin 12.4 g/dL (14.0-18.0); Immature Granulocyte Percent A 0.7 % (0-0.5); Lymphocytes Absolute Auto 1.67 K/mm3 (0.9-3.2); Lymphocytes Percent Auto 12.2 % (18.3-44.2); Mean Corpuscular HGB Conc 33.2 g/dl (32-36); Mean Corpuscular Hemoglobin 31.9 pg (26-34); Mean Corpuscular Volume 96.1 fl (80-100); Mean Platelet Volume 10.3 fl (7.4-10.4); Monocytes Absolute Auto 0.8 K/mm3 (0.1-0.6); Monocytes Percent Auto 5.7 % (2.6-8.5); Neutrophils Absolute Auto 11.1 K/mm3 (1.3-6.7); Neutrophils Percent Auto 81.1 % (45.5-73.1); Platelet Count Result 315 k/mm3 (150-375); Red Blood Count 3.89 M/mm3 (4.6-6.20); Red Cell Distribution Width 14.4 % (11.5-14.5); White Blood Count 13.7 K/mm3 (4.5-10.0)
[2019-10-01 15:53] LABS: Add Urine Microscopic? YES; Appearance Urine Clear (Clear); Bacteria Urine Trace /hpf; Bilirubin Urine 1+ (Negative); Blood Urine Negative (Negative); Color Urine Amber (Yellow); Glucose Urine UA Negative (Negative); Hyaline Casts Urine 15-19 /lpf; Ketones Urine Negative (Negative); Leukocyte Esterase Ur Negative LEU/UL (NEGATIVE); Mucus Urine Heavy /lpf; Nitrate Urine Negative (Negative); Protein Urine 1+ mg/dL (Negative); RBC Urine 0-2 /hpf (0-2); Squamous Epithelial Cell Urine Rare /hpf (Few)
[2019-10-01 16:05] LABS: Alanine Aminotransferase 13 U/L (4-50); Albumin Level 2.9 g/dL (3.5-5.1); Alkaline Phosphatase 127 U/L (38-126); Aspartate Amino Transferase 25 U/L (17-59); Bilirubin,Total 0.6 mg/dL (0.2-1.3); Blood Urea Nitrogen 6 mg/dL (9-20); Calcium 8.2 mg/dL (8.4-10.2); Carbon Dioxide 36 mmol/L (22-30); Chloride 92 mmol/L (98-107); Estimated Glomerular Filt Rate > 60; Glucose 125 mg/dL (75-110); Potassium 2.2 mmol/L (3.4-5.0); Sodium 133 mmol/L (137-145)
[2019-10-01 17:05] LABS: Folic Acid > 20.0 ng/mL (2.76->20)
[2019-10-07 10:10] LABS: Vitamin B1 14 nmol/L (8-30)
== END 2019-10-01 14:34 | disposition home or self-care (01) ==
PROVIDERS: PCP Family Medicine; Visit Provider Physician Assistant
DX: R53.1 Weakness (principal); D53.9 Nutritional anemia, unspecified; E87.6 Hypokalemia; I50.9 Heart failure, unspecified; Z72.89 Other problems related to lifestyle; R35.0 Frequency of micturition; R41.82 Altered mental status, unspecified; J42 Unspecified chronic bronchitis
CPT/HCPCS: 36415; 80053; 81001; 82607; 82746; 84425; 84443; 85025; 87077; 87086; 87088; 87186

== ENCOUNTER 2019-10-01 16:42 | Inpatient (IN) | payer MEDICARE, OTHER, SELFPAY ==
[2019-10-01] VITALS (8 sets, daily range): BP systolic 109–142; BP diastolic 60–98; PULSE 62–151; RESP 16–20; TEMP 36–36.8; O2SAT 96–99; BMI 28.2
[2019-10-01 17:55] LABS: Basophils Absolute Auto 0.1 K/mm3 (0.0-0.1); Basophils Percent Auto 0.4 % (0.2-1.2); Eosinophils Percent Auto 0.1 % (0-4.4); Hematocrit 34.3 % (42.0-52.0); Hemoglobin 11.6 g/dL (14.0-18.0); Immature Granulocyte Absolute 0.07 K/mm3 (0.00-0.031); Immature Granulocyte Percent A 0.6 % (0-0.5); Lymphocytes Absolute Auto 1.76 K/mm3 (0.9-3.2); Mean Corpuscular HGB Conc 33.8 g/dl (32-36); Mean Corpuscular Hemoglobin 32.1 pg (26-34); Mean Platelet Volume 9.8 fl (7.4-10.4); Monocytes Absolute Auto 0.8 K/mm3 (0.1-0.6); Monocytes Percent Auto 6.5 % (2.6-8.5); Neutrophils Absolute Auto 9.8 K/mm3 (1.3-6.7); Neutrophils Percent Auto 78.4 % (45.5-73.1); Platelet Count Result 261 k/mm3 (150-375); Red Blood Count 3.61 M/mm3 (4.6-6.20); Red Cell Distribution Width 14.1 % (11.5-14.5); White Blood Count 12.5 K/mm3 (4.5-10.0)
--- NOTE | 2019-10-01 18:04 | ECG_ITS ---
Measurements Intervals [place] Rate: 141 P: OK: 0 QRS: 50 QRSD: 75 T: -40 QT: 217 QTc: 333 Interpretive Statements ATRIAL FIBRILLATION WITH RAPID VENTRICULAR RESPONSE VENTRICULAR PREMATURE COMPLEXES NONSPECIFIC ST & T-WAVE ABNORMALITY- DIFFUSE LEADS ABNORMAL ECG Electronically Signed On 10-02-2019 11:36:24 CDT by Michael Cedeno D.O.
[2019-10-01 18:14] LABS: Alanine Aminotransferase 13 U/L (4-50); Albumin Level 2.6 g/dL (3.5-5.1); Alkaline Phosphatase 116 U/L (38-126); Aspartate Amino Transferase 22 U/L (17-59); Bilirubin,Total 0.6 mg/dL (0.2-1.3); Blood Urea Nitrogen 6 mg/dL (9-20); Calcium 7.9 mg/dL (8.4-10.2); Carbon Dioxide 34 mmol/L (22-30); Chloride 94 mmol/L (98-107); Estimated CRCL calculation 107 ml/min; Estimated Glomerular Filt Rate > 60; Glucose 160 mg/dL (75-110); Potassium 2.3 mmol/L (3.4-5.0); Sodium 131 mmol/L (137-145)
[2019-10-01] MEDS: POTASSIUM CHLORIDE 20 MEQ TABLET 40 MEQ PO (19:18)
--- NOTE | 2019-10-01 20:03 | ED.RECABL ---
HPI - Recheck/Abnormal Lab/Rx General Chief Complaint: Recheck/Abnormal Lab/Rx Stated Complaint: low potassium level? Time Seen by Provider: 10/01/19 19:00 History of Present Illness HPI narrative: Patient is a 69-year-old male who presents ER with weakness. Ongoing over the last 2 to 3 days. Reports he was started on furosemide 5 days ago. Denies take any potassium supplementation. Has no chest pain/shortness of breath/nausea/vomiting/dizziness. Has been without fevers or chills. Outpatient labs showed that his potassium was elevated and he came here confirmed to be treated. While here he is found to be in A. fib with RVR. Related Data Home Medications Medication Instructions Recorded Confirmed aspirin 325 mg PO DAILY 07/25/19 10/02/19 cholecalciferol (vitamin D3) 125 mcg PO DAILY 07/25/19 10/02/19 [Vitamin D3] multivitamin 1 cap PO DAILY 09/07/19 10/02/19 olmesartan 20 1 tablet PO DAILY 09/07/19 10/02/19 mg-hydrochlorothiazide 12.5 mg tablet Allergies Allergy/AdvReac Type Severity Reaction Status Date / Time Penicillins Allergy Severe Hives / Verified 10/01/19 13:28 Red Face Review of Systems Review of Systems: All systems reviewed & are unremarkable except as noted in HPI and below Constitutional: Constitutional: Denies chills, Reports fatigue, Denies fever(s) and Reports weakness ENT: Denies nasal congestion and Denies sore throat Cardiovascular: Cardiovascular: Denies chest pain, Denies rapid heart rate and Denies radiating jaw, neck or arm pain Respiratory: Respiratory: Denies cough, Denies dyspnea and Denies wheezing Gastrointestinal: Gastrointestinal: Denies abdominal pain, Denies nausea and Denies vomiting Neurologic: Denies dizziness, Denies focal weakness and Denies numbness [facility] Past Medical History Medical History (Updated 10/02/19 @ 05:52 by Adrianna Mcmillan DO) Acute cholecystitis 07/2019 treated with antibiotic therapy Alcohol abuse Atrial fibrillation Not on long-term anticoagulation due to high has bled score. CHF (congestive heart failure) Mild systolic dysfunction noted on echocardiogram from 07/27/2019 45-50%, mild mitral valve regurgitation, mild aortic valve sclerosis and biatrial dilatation Chronic anemia COPD (chronic obstructive pulmonary disease) Essential hypertension GERD (gastroesophageal reflux disease) Histoplasmosis History of BPH History of TIAs Hyperlipidemia Vitamin D deficiency Surgical History Surgical History History of bilateral cataract extraction History of vasectomy Male circumcision Social History Social History (Updated 10/02/19 @ 05:48 by Adrianna Mcmillan DO) Social History: Patient drinks (3) 4 oz drinks of Tequila a day prior to his hospitalization in July. Currently he is drinking 2 margaritas a day with 1 shot of Tequila each. He has smoked 1.5 packs cigarettes per day for 55 years. Primary care physician: Dr. Jean-Claude Crawford Code status: Full code. Surrogate decision maker is Raine phone number [phone]. Smoking packs per day: 1.5 Smoking cigarettes per day: 30.0 Years smoked: 60 Smoking pack-years: 90.00 Smoking status: Current every day smoker Tobacco type: cigarettes Second hand tobacco smoke exposure: Yes Alcohol intake: current Drinks per week: 14 Substance use: never Substance use type: marijuana Last use: 1970 Additional living arrangements comments: He lives at home with his . Gender identity (if verbalized by the patient): Male Spiritual care concerns: No Agree to blood products: Yes Exam Narrative: Exam Narrative: GENERAL: Well-appearing, well-nourished, and in no acute distress. HEAD: Normocephalic, atraumatic. ENT: Mucous membranes moist. CHEST: Clear to auscultation. No respiratory distress. HEART: Irregular regular rate and rhythm is tachycardic. Normal peripheral pulses. ABDOMEN: Soft,
[2019-10-01 22:02] LABS: Magnesium 0.6 mg/dL (1.6-2.3)
[2019-10-01] MEDS: MAGNESIUM SULF 2 GM/WATER 50ML 2 GM/50 ML BAG IVPB ×2 (22:33→23:48)
--- NOTE | 2019-10-01 23:27 | ADMGEN ---
This patient, Lloyd Redman, was admitted to IMU Room 211-01. Patient/family oriented to hospital policies and general routines including ID bracelet, bed and alarms, visiting hours, pain management, procedures, bathroom and other care routines, personal items, smoking policy, room service/diet, and visiting hours. Valuables list has been completed. Information on how to activate the Rapid Response Team has been discussed. Patient/Family are encouraged to report perceived risks to care and to ask questions if they do not understand what they are told or what they should do.
[2019-10-02] VITALS (21 sets, daily range): BP systolic 105–118; BP diastolic 62–87; PULSE 73–152; RESP 14–20; TEMP 36.1–37.1; O2SAT 91–97
--- NOTE | 2019-10-02 04:50 | PM.IMHP ---
H&P: HPI History of Present Illness Chief complaint: Low potassium on outpatient labs Narrative: Date and time of patient contact: 10/02/2019 at 4:50 a.m. Lloyd Redman is a 69 year old male with a past medical history of alcoholism, atrial fibrillation, and mild systolic dysfunction who presented from home due to low potassium on outpatient labs and generalized weakness. The patient had been evaluated in his primary care physician's office on the due to right lower extremity swelling. He had a venous Doppler performed at that time that was negative for DVT. He was prescribed 10 days of Lasix 20 mg p.o. daily. He did not receive any potassium supplementation at that time. Over the last 3-4 days had noticed increased weakness and fatigue. He went back to his primary care physician's office on the and had outpatient labs obtained which demonstrated hypokalemia. He was directed to come to the ER for evaluation. In the ER was confirmed the patient was hypokalemic with potassium of 2.3. He also had a magnesium level less than 1. He denied having any palpitations or chest pain. He had not had any changes in his chronic cough and denies any shortness of breath or orthopnea. However, while the patient was in the ER he converted into AFib RVR with heart rates in the 150s. He was given multiple Cardizem pushes without improvement in his heart rate. The patient states that he has been taking his home medications as directed. He has some chronic right lower extremity swelling but has been worse over the last week and a half to 2 weeks. He denies any pain in the right lower extremity. Denies any injury to the right lower extremity. Patient is alert and oriented x4 but is a relatively poor historian. He will answer questions in 1-2 word answers. During his hospitalization in July the patient had had acute cholecystitis. He denies any right upper quadrant pain, nausea, vomiting or changes in appetite. He does continue to drink 2 alcoholic beverages a day. He states that his Margaritas only have 1 shot in each drink. Review of Systems Review of Systems: Narrative: 12 systems were reviewed with pertinent positives and negatives per HPI. Except as documented in the HPI, all other systems were reviewed and are negative. [facility] Past Medical History Medical History (Updated 10/02/19 @ 06:06 by Adrianna J. Hopen, DO) Acute cholecystitis 07/2019 treated with antibiotic therapy Alcohol abuse Atrial fibrillation Not on long-term anticoagulation due to high has bled score. CHF (congestive heart failure) Mild systolic dysfunction noted on echocardiogram from 07/27/2019 45-50%, mild mitral valve regurgitation, mild aortic valve sclerosis and biatrial dilatation Chronic anemia COPD (chronic obstructive pulmonary disease) Essential hypertension GERD (gastroesophageal reflux disease) Histoplasmosis History of BPH History of TIAs Hyperlipidemia Vitamin D deficiency Surgical History Surgical History History of bilateral cataract extraction History of vasectomy Male circumcision Social History Social History (Updated 10/02/19 @ 05:48 by Adrianna Mcmillan DO) Social History: Patient drinks (3) 4 oz drinks of Tequila a day prior to his hospitalization in July. Currently he is drinking 2 margaritas a day with 1 shot of Tequila each. He has smoked 1.5 packs cigarettes per day for 55 years. Primary care physician: Dr. Jean-Claude Crawford Code status: Full code. Surrogate decision maker is Raine phone number [phone]. Smoking packs per day: 1.5 Smoking cigarettes per day: 30.0 Years smoked: 60 Smoking pack-years: 90.00 Smoking status: Current every day smoker Tobacco type: cigarettes Second hand tobacco smoke exposure: Yes Alcohol intake: current Drinks per week: 14 Substance use: never Substance use type: marijuana Last use: 1970 Additional mckay
[2019-10-02 04:51] LABS: Hemoglobin 10.7 g/dL (14.0-18.0); Mean Corpuscular HGB Conc 33.4 g/dl (32-36); Mean Corpuscular Hemoglobin 31.8 pg (26-34); Mean Corpuscular Volume 95.2 fl (80-100); Mean Platelet Volume 9.9 fl (7.4-10.4); Platelet Count Result 214 k/mm3 (150-375); Red Blood Count 3.36 M/mm3 (4.6-6.20); Red Cell Distribution Width 14.2 % (11.5-14.5); White Blood Count 10.7 K/mm3 (4.5-10.0)
[2019-10-02 05:26] LABS: Blood Urea Nitrogen 5 mg/dL (9-20); Calcium 7.7 mg/dL (8.4-10.2); Carbon Dioxide 33 mmol/L (22-30); Chloride 96 mmol/L (98-107); Estimated CRCL calculation 126 ml/min; Estimated Glomerular Filt Rate > 60; Glucose 132 mg/dL (75-110); Magnesium 1.4 mg/dL (1.6-2.3); Potassium 2.6 mmol/L (3.4-5.0); Sodium 132 mmol/L (137-145)
[2019-10-02] MEDS: MAGNESIUM SULF 4 GM/WATER100ML 4 GM/100 ML BAG IVPB (06:26)
[2019-10-02] MEDS: ASPIRIN 325 MG ENTERIC TABLET PO (09:03)
[2019-10-02] MEDS: carvediloL 12.5 MG TABLET PO (09:03)
[2019-10-02] MEDS: MULTIVITAMINS THERAPEUTIC TAB (*BKC) 1 TABLET PO (09:04)
[2019-10-02] MEDS: FOLIC ACID 1 MG TABLET PO (09:04)
[2019-10-02] MEDS: hydroCHLOROthiazide 12.5 MG CAPSULE PO (09:04)
[2019-10-02] MEDS: PANTOPRAZOLE 40 MG TABLET PO (09:04)
[2019-10-02] MEDS: FUROSEMIDE 20 MG TABLET PO (09:04)
[2019-10-02] MEDS: THIAMINE HCL 100 MG TABLET PO (09:04)
[2019-10-02] MEDS: PRAVASTATIN SODIUM 20 MG TABLET 40 MG PO (09:05)
[2019-10-02] MEDS: CHOLECALCIFEROL 1,000 UNIT TABLET 5000 UNITS PO (09:05)
[2019-10-02] MEDS: OLMESARTAN MEDOXOMIL 20 MG TABLET PO (09:05)
[2019-10-02] MEDS: POTASSIUM CHLORIDE 20 MEQ TABLET 40 MEQ PO ×2 (09:05→17:21)
--- NOTE | 2019-10-02 13:28 | PM.IMPN ---
Progress Note: A&P Assessment and Plan (1) Atrial fibrillation with rapid ventricular response: Code(s): I48.91 - Unspecified atrial fibrillation Status: Inactive Assessment and Plan: Patient's heart rate is increased back up to the 150s. Cardizem drip increased to 20 mg/hr. The patient's home Coreg has been resumed. Will switch over to 90 mg every 6 hours oral Cardizem and advance his Coreg. Doppler negative. Recent Echo showing EF of 45-50% with mild valvular disease and biatrial dilation. No plans for anticoagulation. (2) Hypokalemia: Code(s): E87.6 - Hypokalemia Status: Acute Assessment and Plan: Potassium 2.2 on admission. Received appropriate replacement potassium now 3.2 this afternoon. Repeat oral potassium today and follow with levels. (3) Hypomagnesemia: Code(s): E83.42 - Hypomagnesemia Status: Acute Assessment and Plan: Magnesium level 0.6 on admission but has been replaced. Magnesium 2.0 this afternoon. continue to monitor. (4) Chronic alcohol use: Code(s): Z72.89 - Other problems related to lifestyle Status: Chronic Assessment and Plan: Pateint drinks 8-10 oz Tequila him artery disease daily. CIWA score 0 thus far. Continue thiamine and folate. Monitor closely for signs or symptoms of withdrawal. (5) Anemia: Qualifiers: Anemia type: unspecified type Qualified Code(s): D64.9 - Anemia, unspecified Code(s): D64.9 - Anemia, unspecified Status: Acute Assessment and Plan: Mild anemia. Hgb 12.4 on admission and has dropped to 10.4. B12/folate normal. No iron studies noted. Stool guaiac positive from 08/02/19 for workup of his abd pain. Consider gastritis or from hemorrhoids. Continue Protonix. Patient was recommended to arrange for outpatient GI evaluation but patient has not followed up yet. Follow HH. Check iron studies. Subjective Date/time seen: 10/02/19 13:28 Interval history: 69yo male of alcoholism atrial fibrillation here for hypokalemia and atrial fibrillation with rapid ventricular response. Patient denies any shortness of breath or cough. Denies any chest pain or palpitations. He is lying flat in bed denies any orthopnea symptoms. No abdominal pain. No nausea or vomiting. He currently smokes 1 pack per day. He drinks Tequila 5-10 oz per day. Exam Narrative: Exam Narrative: AF 113/78 100 14 96% RA Gen - NARD lying flat in bed Chest -prolonged expiratory phase. Distant breath sounds. CV -irregular irregular. Tachycardic. Telemetry showing atrial fibrillation with RVR. Abd - Soft, ND, +liver tip Ext - 1+ right greater than left lower extremity edema. Negative Homans sign Psych - Nml mood and affect Skin - Warm and dry Objective Data Vital Signs Vital Signs: Vital Signs - 24 hr 10/01/19 17:28 10/01/19 19:19 10/01/19 21:08 Temperature 98.3 F Pulse Rate 62 151 H 145 H Pulse Rate [Monitor] Respiratory Rate 16 20 20 Blood Pressure 109/74 127/96 H 120/98 H Pulse Oximetry 98 99 99 10/01/19 21:21 10/01/19 21:42 10/01/19 22:34 Temperature Pulse Rate 147 H 144 H 144 H Pulse Rate [Monitor] Respiratory Rate 20 Blood Pressure 129/83 136/60 122/78 Pulse Oximetry 99 10/01/19 23:13 10/01/19 23:14 10/02/19 00:00 Temperature 96.8 F L 96.9 F L Pulse Rate 147 H 144 H 138 H Pulse Rate [Monitor] Respiratory Rate 20 20 18 Blood Pressure 142/78 H 120/88 106/82 Pulse Oximetry 99 96 97 10/02/19 02:00 10/02/19 03:43 10/02/19 03:44 Temperature 97.2 F L Pulse Rate 152 H 152 H 152 H Pulse Rate [Monitor] Respiratory Rate 20 Blood Pressure 118/87 Pulse Oximetry 95 10/02/19 04:00 10/02/19 05:37 10/02/19 07:46 Temperature Pulse Rate 152 H 148 H Pulse Rate [Monitor] 126 H Respiratory Rate 20 Blood Pressure Pulse Oximetry 95 10/02/19 08:00 10/02/19 09:03 10/02/19 09:52 Temperature 97.2 F L Puls
[2019-10-02 15:17] LABS: Potassium 3.2 mmol/L (3.4-5.0)
[2019-10-02] MEDS: carvediloL 25 MG TABLET PO (17:22)
[2019-10-02] MEDS: TERAZOSIN HCL 5 MG CAPSULE 10 MG PO (20:49)
[2019-10-03] VITALS (19 sets, daily range): BP systolic 107–137; BP diastolic 63–87; PULSE 62–127; RESP 18–20; TEMP 35.9–36.8; O2SAT 91–95
[2019-10-03 04:14] LABS: Hematocrit 30.6 % (42.0-52.0); Hemoglobin 10.2 g/dL (14.0-18.0); Mean Corpuscular HGB Conc 33.3 g/dl (32-36); Mean Corpuscular Hemoglobin 31.8 pg (26-34); Mean Corpuscular Volume 95.3 fl (80-100); Mean Platelet Volume 9.5 fl (7.4-10.4); Platelet Count Result 238 k/mm3 (150-375); Red Blood Count 3.21 M/mm3 (4.6-6.20); Red Cell Distribution Width 14.1 % (11.5-14.5); White Blood Count 11.4 K/mm3 (4.5-10.0)
[2019-10-03 04:30] LABS: Alanine Aminotransferase 14 U/L (4-50); Albumin Level 2.3 g/dL (3.5-5.1); Alkaline Phosphatase 133 U/L (38-126); Aspartate Amino Transferase 27 U/L (17-59); Bilirubin,Total 1.2 mg/dL (0.2-1.3); Blood Urea Nitrogen 8 mg/dL (9-20); Calcium 7.9 mg/dL (8.4-10.2); Carbon Dioxide 36 mmol/L (22-30); Chloride 96 mmol/L (98-107); Estimated CRCL calculation 126 ml/min; Estimated Glomerular Filt Rate > 60; Glucose 132 mg/dL (75-110); Magnesium 1.7 mg/dL (1.6-2.3); Phosphorus 2.9 mg/dL (2.5-4.5); Potassium 3.2 mmol/L (3.4-5.0); Sodium 130 mmol/L (137-145)
[2019-10-03 04:46] LABS: Iron 20 ug/dL (49-181)
[2019-10-03 04:59] LABS: Percent Iron Saturation 13 % (20-50)
[2019-10-03] MEDS: ASPIRIN 325 MG ENTERIC TABLET PO (08:51)
[2019-10-03] MEDS: CHOLECALCIFEROL 1,000 UNIT TABLET 5000 UNITS PO (08:52)
[2019-10-03] MEDS: FOLIC ACID 1 MG TABLET PO (08:53)
[2019-10-03] MEDS: MULTIVITAMINS THERAPEUTIC TAB (*BKC) 1 TABLET PO (08:53)
[2019-10-03] MEDS: OLMESARTAN MEDOXOMIL 20 MG TABLET PO (08:54)
[2019-10-03] MEDS: PANTOPRAZOLE 40 MG TABLET PO (08:54)
[2019-10-03] MEDS: PRAVASTATIN SODIUM 20 MG TABLET 40 MG PO (08:54)
[2019-10-03] MEDS: FUROSEMIDE 20 MG TABLET PO (08:54)
[2019-10-03] MEDS: THIAMINE HCL 100 MG TABLET PO (08:54)
[2019-10-03] MEDS: carvediloL 25 MG TABLET PO ×2 (08:54→17:59)
[2019-10-03] MEDS: POTASSIUM CHLORIDE 20 MEQ TABLET 40 MEQ PO ×2 (08:55→18:00)
--- NOTE | 2019-10-03 17:00 | PM.IMPN ---
Progress Note: A&P Assessment and Plan (1) Atrial fibrillation with rapid ventricular response: Code(s): I48.91 - Unspecified atrial fibrillation Status: Inactive Assessment and Plan: Patient in AFib/RVR in the ER. Heart rate is poorly controlled so Cardizem drip increased to 20 mg/hr. The patient's home Coreg was resumed. We switch to 90 mg every 6 hours oral Cardizem and advance his Coreg. LE Venous Doppler negative. Recent Echo showing EF of 45-50% with mild valvular disease and biatrial dilation. No plans for anticoagulation. Patient takes Cardizen CD 360mg at home. Will continue his home Cardizem and add Cardizem 120mg at night. Continue the higher dose of the Coreg. BP reasonable. (2) Hypokalemia: Code(s): E87.6 - Hypokalemia Status: Acute Assessment and Plan: Potassium 2.2 on admission. Continue to replace as needed. (3) Hypomagnesemia: Code(s): E83.42 - Hypomagnesemia Status: Acute Assessment and Plan: Magnesium level 0.6 on admission but has been replaced. Magnesium 1.7 so will continue. (4) Chronic alcohol use: Code(s): Z72.89 - Other problems related to lifestyle Status: Chronic Assessment and Plan: Pateint drinks 8-10 oz Tequila him artery disease daily. CIWA score 0-1 thus far. Continue thiamine and folate. Monitor closely for signs or symptoms of withdrawal. (5) Anemia: Qualifiers: Anemia type: unspecified type Qualified Code(s): D64.9 - Anemia, unspecified Code(s): D64.9 - Anemia, unspecified Status: Acute Assessment and Plan: Mild anemia. Hgb 12.4 on admission and has dropped to 10.2. B12/folate normal. Iron studies consistent with anemia of chrnic disease. Stool guaiac positive from 08/02/19 for workup of his abd pain. Consider gastritis or from hemorrhoids. Continue Protonix. Patient was recommended to arrange for outpatient GI evaluation but patient has not followed up yet. Follow HH. C Subjective Date/time seen: 10/03/19 17:00 Interval history: 69yo male with hx of alcoholism and atrial fibrillation here for hypokalemia and atrial fibrillation with rapid ventricular response. No problems overnight. Eating okay. Slept well. No CP or SOB. Exam Narrative: Exam Narrative: AF 107/63 105 Gen - NARD lying flat in bed Chest - expiratory wheezes, nml RR CV -irregular irregular. Telemetry showing atrial fibrillation with occas RVR. Abd - Soft, ND/NT, +liver tip Ext - trace lower extremity edema. Negative Homans sign Psych - Nml mood and affect Skin - Warm and dry Objective Data Vital Signs Vital Signs: Vital Signs - 24 hr 10/02/19 17:22 10/02/19 18:00 10/02/19 19:32 Temperature 97.9 F Pulse Rate 98 75 75 Pulse Rate [Apical Auscultation] Pulse Rate [Monitor] Respiratory Rate 18 Blood Pressure 105/71 Pulse Oximetry 94 10/02/19 20:00 10/02/19 22:00 10/02/19 23:37 Temperature 97 F L Pulse Rate 73 95 114 H Pulse Rate [Apical Auscultation] Pulse Rate [Monitor] 75 Respiratory Rate 18 Blood Pressure 115/69 Pulse Oximetry 91 10/03/19 00:00 10/03/19 02:00 10/03/19 03:52 Temperature 97.1 F L Pulse Rate 121 H 98 123 H Pulse Rate [Apical Auscultation] Pulse Rate [Monitor] 114 H Respiratory Rate 18 Blood Pressure 115/69 132/77 Pulse Oximetry 91 93 10/03/19 04:00 10/03/19 06:00 10/03/19 08:00 Temperature 96.6 F L Pulse Rate 94 106 H 122 H Pulse Rate [Apical Auscultation] Pulse Rate [Monitor] 123 H Respiratory Rate 20 Blood Pressure 132/77 122/78 Pulse Oximetry 93 95 10/03/19 08:30 10/03/19 08:54 10/03/19 10:00 Temperature Pulse Rate 118 H 127 H 119 H Pulse Rate [Apical Auscultation] Pulse Rate [Monitor] Respiratory Rate Blood Pressure Pulse Oximetry 10/03/19 12:00 10/03/19 14:30 Temperature 96.8 F L Pulse Rate 109 H 105 H Pulse Rate [Apical
[2019-10-03] MEDS: MAGNESIUM SULF 2 GM/WATER 50ML 2 GM/50 ML BAG IVPB (18:34)
[2019-10-03] MEDS: TERAZOSIN HCL 5 MG CAPSULE 10 MG PO (20:45)
[2019-10-04] VITALS (23 sets, daily range): BP systolic 101–141; BP diastolic 61–91; PULSE 71–149; RESP 12–22; TEMP 35.7–36.4; O2SAT 88–98
[2019-10-04 02:48] LABS: Albumin Level 2.4 g/dL (3.5-5.1); Blood Urea Nitrogen 9 mg/dL (9-20); Calcium 7.9 mg/dL (8.4-10.2); Carbon Dioxide 32 mmol/L (22-30); Chloride 98 mmol/L (98-107); Estimated CRCL calculation 126 ml/min; Estimated Glomerular Filt Rate > 60; Glucose 116 mg/dL (75-110); Magnesium 1.8 mg/dL (1.6-2.3); Phosphorus 2.9 mg/dL (2.5-4.5); Potassium 3.7 mmol/L (3.4-5.0); Sodium 129 mmol/L (137-145)
[2019-10-04] MEDS: POTASSIUM CHLORIDE 20 MEQ TABLET 40 MEQ PO (10:18)
[2019-10-04] MEDS: PRAVASTATIN SODIUM 20 MG TABLET 40 MG PO (10:18)
[2019-10-04] MEDS: MULTIVITAMINS THERAPEUTIC TAB (*BKC) 1 TABLET PO (10:18)
[2019-10-04] MEDS: CHOLECALCIFEROL 1,000 UNIT TABLET 5000 UNITS PO (10:19)
[2019-10-04] MEDS: PANTOPRAZOLE 40 MG TABLET PO (10:19)
[2019-10-04] MEDS: FUROSEMIDE 20 MG TABLET PO (10:20)
[2019-10-04] MEDS: ASPIRIN 325 MG ENTERIC TABLET PO (10:20)
[2019-10-04] MEDS: THIAMINE HCL 100 MG TABLET PO (10:20)
[2019-10-04] MEDS: OLMESARTAN MEDOXOMIL 20 MG TABLET PO (10:20)
[2019-10-04] MEDS: carvediloL 12.5 MG TABLET 37.5 MG PO ×2 (10:21→20:04)
[2019-10-04] MEDS: FOLIC ACID 1 MG TABLET PO (10:22)
--- NOTE | 2019-10-04 12:11 | PM.IMPN ---
Progress Note: A&P Assessment and Plan (1) Atrial fibrillation with rapid ventricular response: Code(s): I48.91 - Unspecified atrial fibrillation Status: Inactive Assessment and Plan: Patient AFib/RVR in the ER and started on Dilt drip. Heart rate is poorly controlled so Dilt drip increased to 20 mg/hr. The patient's home Coreg was resumed. We switch to 90 mg every 6 hours oral Cardizem and advance his Coreg. LE Venous Doppler negative. Recent Echo showing EF of 45-50% with mild valvular disease and biatrial dilation. No plans for anticoagulation given his hx of alcoholism. ASA continued. Patient takes Cardizen CD 360mg at home. Will transitioned to his home Cardizem and added Cardizem 120mg at night. Will advance Coreg and balnace out the Cardizem to 240mg Q12h. BP reasonable. Consider adding Digoxin. (2) Hypokalemia: Code(s): E87.6 - Hypokalemia Status: Acute Assessment and Plan: Potassium 2.6 on admission. Continue to replace as needed. (3) Hypomagnesemia: Code(s): E83.42 - Hypomagnesemia Status: Acute Assessment and Plan: Magnesium level 0.6 on admission but has been replaced. Magnesium 1.8 today so will replace again. (4) Chronic alcohol use: Code(s): Z72.89 - Other problems related to lifestyle Status: Chronic Assessment and Plan: Pateint drinks 8-10 oz Tequila him artery disease daily. CIWA score 0-1. Continue thiamine and folate. Monitor closely for signs or symptoms of withdrawal. (5) Anemia: Qualifiers: Anemia type: unspecified type Qualified Code(s): D64.9 - Anemia, unspecified Code(s): D64.9 - Anemia, unspecified Status: Acute Assessment and Plan: Mild anemia. Hgb 12.4 on admission and has dropped to 10.2. B12/folate normal. Iron studies consistent with anemia of chronic disease. Stool guaiac positive from 08/02/19 for workup of his abd pain. Consider gastritis or from hemorrhoids. Continue Protonix. Patient was recommended to arrange for outpatient GI evaluation but patient has not followed up yet. Repeat CBC in the morning. Subjective Date/time seen: 10/04/19 12:11 Interval history: 69yo male with hx of alcoholism and atrial fibrillation here for weakness and found to have hypokalemia and atrial fibrillation with rapid ventricular response. Patient slept well. He states he has not been out of bed much. No chest pain. No shortness of breath. He does not wear oxygen at home. Heart rate up to the 120-140 range overnight. Exam Narrative: Exam Narrative: AF 122/76 101 Gen - NARD lying semi recumbent in bed Chest -lungs clear to auscultation. No wheezes or crackles. CV -irregular and tachycardic; heart rate 107. Telemetry showing atrial fibrillation with sustained RVR overnight. Abd - Soft, nontender. Nondistended. Positive bowel sounds. Ext - no pedal edema. Psych - Nml mood and affect. Alert and orient x4 except the name of the hospital. Skin - Warm and dry Objective Data Vital Signs Vital Signs: Vital Signs - 24 hr 10/03/19 14:30 10/03/19 16:00 10/03/19 16:45 Temperature 98.3 F Pulse Rate 105 H 115 H 112 H Pulse Rate [Apical Auscultation] Respiratory Rate 20 Blood Pressure 115/75 Pulse Oximetry 95 10/03/19 17:59 10/03/19 18:00 10/03/19 19:54 Temperature 97.6 F Pulse Rate 113 H 62 111 H Pulse Rate [Apical Auscultation] Respiratory Rate 18 Blood Pressure 132/86 Pulse Oximetry 94 10/03/19 20:00 10/03/19 22:00 10/03/19 23:35 Temperature 97.9 F Pulse Rate 111 H 112 H 119 H Pulse Rate [Apical Auscultation] 111 H Respiratory Rate 18 20 Blood Pressure 132/86 137/87 Pulse Oximetry 94 93 10/04/19 00:00 10/04/19 02:00 10/04/19 02:05 Temperature Pulse Rate 119 H 135 H 148 H Pulse Rate [Apical Auscultation] 122 H Respiratory Rate 20 Blood Pressure 137/87 141/91 H Pulse Oximetry 93 06
[2019-10-04] MEDS: MAGNESIUM SULF 2 GM/WATER 50ML 2 GM/50 ML BAG IVPB (13:54)
[2019-10-04] MEDS: TERAZOSIN HCL 5 MG CAPSULE 10 MG PO (20:03)
[2019-10-05] VITALS (14 sets, daily range): BP systolic 93–110; BP diastolic 49–78; PULSE 75–108; RESP 18–22; TEMP 35.7–36.8; O2SAT 91–99
[2019-10-05 04:54] LABS: Hematocrit 29.9 % (42.0-52.0); Hemoglobin 9.8 g/dL (14.0-18.0); Mean Corpuscular HGB Conc 32.8 g/dl (32-36); Mean Corpuscular Hemoglobin 31.8 pg (26-34); Mean Corpuscular Volume 97.1 fl (80-100); Platelet Count Result 226 k/mm3 (150-375); Red Blood Count 3.08 M/mm3 (4.6-6.20); Red Cell Distribution Width 14.3 % (11.5-14.5); White Blood Count 10.7 K/mm3 (4.5-10.0)
[2019-10-05 05:15] LABS: Blood Urea Nitrogen 9 mg/dL (9-20); Calcium 8.1 mg/dL (8.4-10.2); Carbon Dioxide 31 mmol/L (22-30); Chloride 99 mmol/L (98-107); Estimated CRCL calculation 126 ml/min; Estimated Glomerular Filt Rate > 60; Glucose 123 mg/dL (75-110); Magnesium 1.9 mg/dL (1.6-2.3); Potassium 4.1 mmol/L (3.4-5.0); Sodium 131 mmol/L (137-145)
--- NOTE | 2019-10-05 09:21 | P.CDI_ITS ---
CDI Query Clarification Request - History of CHF documented - mild systolic dysfunction noted on echo documented - Recent echo showing EF of 45-50% documented - Coders cannot code type of CHF from echo results. Please further clarify type of CHF: * Systolic * Diastolic * Both Systolic and Diastolic * Unable to determine <Jemma Uribe RN - Last Filed: 10/05/19 09:30>
[2019-10-05] MEDS: CHOLECALCIFEROL 1,000 UNIT TABLET 5000 UNITS PO (10:39)
[2019-10-05] MEDS: carvediloL 12.5 MG TABLET 37.5 MG PO (10:40)
[2019-10-05] MEDS: ASPIRIN 325 MG ENTERIC TABLET PO (10:41)
[2019-10-05] MEDS: PRAVASTATIN SODIUM 20 MG TABLET 40 MG PO (10:41)
[2019-10-05] MEDS: MULTIVITAMINS THERAPEUTIC TAB (*BKC) 1 TABLET PO (10:42)
[2019-10-05] MEDS: FUROSEMIDE 20 MG TABLET PO (10:42)
[2019-10-05] MEDS: FOLIC ACID 1 MG TABLET PO (10:42)
[2019-10-05] MEDS: POTASSIUM CHLORIDE 20 MEQ TABLET 40 MEQ PO (10:43)
[2019-10-05] MEDS: PANTOPRAZOLE 40 MG TABLET PO (10:43)
[2019-10-05] MEDS: OLMESARTAN MEDOXOMIL 20 MG TABLET PO (10:43)
[2019-10-05] MEDS: THIAMINE HCL 100 MG TABLET PO (10:44)
--- NOTE | 2019-10-05 17:25 | PM.DS ---
DS: Admitting Diagnosis Admitting Diagnosis Admitting Diagnosis: Unspecified atrial fibrillation DS: Discharge Diagnosis Discharge Diagnosis (1) Atrial fibrillation with rapid ventricular response: Code(s): I48.91 - Unspecified atrial fibrillation Status: Inactive Assessment and Plan: Patient AFib/RVR in the ER and started on Dilt drip. Heart rate was poorly controlled so Dilt drip increased to 20 mg/hr. The patient's home Coreg was resumed. We switch to 90 mg every 6 hours oral Cardizem and advanced his Coreg. LE Venous Doppler negative. Recent Echo showing EF of 45-50% with mild valvular disease and biatrial dilation. No plans for anticoagulation given his hx of alcoholism. ASA continued. Patient takes Cardizen CD 360mg at home. Will transitioned to his home Cardizem and added Cardizem 120mg at night. Persistent tachycardic so we advance Coreg to 37.5 Q12hrs and balanced out the Cardizem to 240mg Q12h. BP has remained reasonable. HR better controlled (2) Hypokalemia: Code(s): E87.6 - Hypokalemia Status: Acute Assessment and Plan: Potassium 2.6 on admission and was replaced. Continue to replace as needed. (3) Hypomagnesemia: Code(s): E83.42 - Hypomagnesemia Status: Acute Assessment and Plan: Magnesium level 0.6 on admission. This has been replaced. Magnesium 1.9 today. (4) Chronic alcohol use: Code(s): Z72.89 - Other problems related to lifestyle Status: Chronic Assessment and Plan: Patient drinks 8-10 oz Tequila daily. CIWA score 0-1. We continued thiamine and folate. No evidence of withdrawal. (5) Anemia: Qualifiers: Anemia type: unspecified type Qualified Code(s): D64.9 - Anemia, unspecified Code(s): D64.9 - Anemia, unspecified Status: Acute Assessment and Plan: Mild anemia. Hgb 12.4 on admission and has dropped to 9-10 range. B12/folate normal. Iron studies consistent with anemia of chronic disease. Stool guaiac positive from 08/02/19 for workup of his abd pain. Consider gastritis or from hemorrhoids. We continued Protonix. Patient was recommended to arrange for outpatient GI evaluation but patient has not followed up yet. DS: Summary Time Spent with Patient Time attestation: Total time spent providing and/or coordinating discharge services: Exam Narrative: Exam Narrative: AF 110/49 85 Gen - NARD lying semi recumbent in bed Chest - CTA bilaterally, nml RR CV - irregularly irregular. Telemetry showing atrial fibrillation with controlled rate Abd - Soft, nontender. Nondistended. Positive bowel sounds. Ext - no pedal edema. Psych - Nml mood and affect. Skin - Warm and dry DS: Data Data Completed and Pending Labs on day of discharge: Labs from last 24 hours 10/05/19 10/05/19 04:27 04:27 WBC 10.7 H RBC 3.08 L Hgb 9.8 L Hct 29.9 L MCV 97.1 MCH 31.8 MCHC 32.8 RDW 14.3 Plt Count 226 MPV 10.0 Sodium 131 L Potassium 4.1 Chloride 99 Carbon Dioxide 31 H BUN 9 Creatinine 0.50 L Estim Creat Clear Calc 126 Estimated GFR > 60 Glucose 123 H Calcium 8.1 L Magnesium 1.9 Discharge Plan Discharge Attending physician on discharge: Valentino Ferrari Discharging Clinician: Valentino Ferrari Anticipated Discharge Date/Time: 10/05/19 17:35 Patient Disposition: Home, Self-Care Activity: as tolerated Diet: heart healthy Discharge Instructions: Please arrange for outpatient evaluation by a GI physician for blood in stool. Patient Instructions: Antibiotic Form, How to Stop Smoking (DC) Stand Alone Forms: General Discharge Information Follow-up/Referrals: Jean-Claude Crawford MD [Primary Care Provider] - 1 Week Discharge Medications: New thiamine HCl (vitamin B1) [Vitamin B-1] 100 mg Tablet 100 mg PO QAM Qty: 30 RF: 0 carvedilol 25 mg tablet 37.5 mg PO Q12H Qty: 90 RF: 2
== END 2019-10-05 18:36 | disposition home or self-care (01) | DRG 310 ==
LOC: ANHED 22:10 → ANHIMU 22:48
PROVIDERS: Admitting Provider Internal Medicine; Emergency Provider Emergency Medicine; PCP Family Medicine; Visit Provider Internal Medicine
DX: I48.91 Unspecified atrial fibrillation (principal); D64.9 Anemia, unspecified; E87.6 Hypokalemia; E83.42 Hypomagnesemia; Z72.89 Other problems related to lifestyle; I10 Essential (primary) hypertension; I08.0 Rheumatic disorders of both mitral and aortic valves; F17.210 Nicotine dependence, cigarettes, uncomplicated; J44.9 Chronic obstructive pulmonary disease, unspecified; K21.9 Gastro-esophageal reflux disease without esophagitis; E78.5 Hyperlipidemia, unspecified; E55.9 Vitamin D deficiency, unspecified; Z88.0 Allergy status to penicillin; Z79.82 Long term (current) use of aspirin; Z79.899 Other long term (current) drug therapy
CPT/HCPCS: 36415; 80048; 80053; 80069; 81001; 82607; 82728; 82746; 83540; 83550; 83735; 84100; 84132; 84425; 84443; 85025; 85027; 87077; 87086; 87088; 87186; 93005; 96365; 96366; 96367; 96368; 96376; 99285; A9270; G0378; J3475; J3480

== ENCOUNTER 2019-10-08 12:07 | Inpatient (IN) | payer MEDICARE, OTHER, BC, SELFPAY ==
[2019-10-08] VITALS (41 sets, daily range): BP systolic 80–110; BP diastolic 51–91; PULSE 77–101; RESP 14–97; TEMP 36.6–36.9; O2SAT 92–100; BMI 30.2
--- NOTE | ~2019-10-08 | XR_ITS ---
EXAMINATION: XR chest 1V portable DATE: 10/22/2019 06:17 INDICATION: Respiratory failure TECHNIQUE: frontal view of the chest was obtained. COMPARISON: Chest radiograph dated 10/21/2019 FINDINGS: Endotracheal tube tip 7.2 cm above the jhonny. Right internal jugular central venous catheter with di stal tip at the midsuperior vena cava. Nasogastric tube extends below the left hemidiaphragm with di stal tip collimated off the study. Again seen is a gradient of hazy airspace opacities in the bilateral mid to lower lung zones which is decreased on the right consistent with decreasing small bilateral pleural effusions. Superimposed in distinct interstitial pattern throughout both lungs. Retrocardiac consolidation at the left lung base . No pneumothorax. The cardiomediastinal silhouette is normal. IMPRESSION: 1. Endotracheal tube tip 7.2 cm above the jhonny. Recommend advancement by 4-5 cm. 2. Decreasing small bilateral pleural effusions. 3. Mild pulmonary edema. 4. Left basilar atelectasis and/or pneumonia. Reviewed, dictated and finalized at location A.
--- NOTE | ~2019-10-08 | XR_ITS ---
EXAMINATION: XR chest ET placement DATE: 10/15/2019 13:55 INDICATION: Intubation. TECHNIQUE: A single frontal view of the chest was obtained. COMPARISON: Chest single view at 9:59 AM FINDINGS: There is a small left pleural effusion. There are airspace opacities in the perihilar regio ns and at left lung base. No pneumothorax. The heart size is normal. The endotracheal tube tip is 6.4 cm above the jhonny. The nasogastric tube tip is beyond the inferior margin of the radiograph, but a t least to the stomach. A right internal jugular central venous catheter is seen with tip in the supe rior vena cava. IMPRESSION: 1. Worsened airspace opacities in the perihilar regions, consistent with atelectasis versus mild pulm onary edema. 2. Stable small left pleural effusion. 3. Persistent airspace opacities at left lung base, consistent with atelectasis versus pneumonia. Reviewed, dictated and finalized at location A. IMPRESSION: 1. Worsened airspace opacities in the perihilar regions, consistent with atelec tasis versus mild pulmonary edema. 2. Stable small left pleural effusion. 3. Persistent airspace opacities at left lung base, consistent with atelectasis versus pneumonia.
--- NOTE | ~2019-10-08 | XR_ITS ---
EXAMINATION: XR chest 1V portable INDICATION: Respiratory failure TECHNIQUE: Portable AP chest at 0530 hours COMPARISON: 10/24/2019 FINDINGS: The endotracheal tube ends approximately 6.9 cm above the jhonny. The nasogastric tube is f ollowed as far as the stomach. Its tip is beyond the inferior margin of the radiograph. A right inter nal jugular catheter ends with its tip in the superior vena cava. Diffuse airspace opacities persist without significant change. Small pleural effusions are stable. There is no pneumothorax. There is st able cardiomegaly. IMPRESSION: 1. Diffuse lung disease without significant change, consistent with multifocal pneumonia. 2. Stable cardiomegaly. Reviewed, dictated and finalized at location A.
--- NOTE | ~2019-10-08 | XR_ITS ---
EXAMINATION: XR chest 1V portable DATE: 10/09/2019 08:16 INDICATION: Shortness of breath TECHNIQUE: frontal view of the chest was obtained. COMPARISON: Chest radiograph dated 10/08/2019 FINDINGS: Right internal jugular central venous catheter with distal tip at the caudal superior vena cava. Scat tered linear discoid atelectasis/scarring in the left mid and lower lung zones. Indistinct more subtl e airspace opacities in the left mid and bilateral lower lung zones which could represent additional atelectasis, mild pulmonary edema or pneumonia. No pleural effusion or pneumothorax. The cardiomedias tinal silhouette is normal. IMPRESSION: 1. Increasing opacities in the left mid and bilateral lower lung zones which could represent atelecta sis, pulmonary edema, pneumonia or some combination thereof. Reviewed, dictated and finalized at location A. IMPRESSION: 1. Increasing opacities in the left mid and bilateral lower lung zones which co uld represent atelectasis, pulmonary edema, pneumonia or some combination there of.
--- NOTE | ~2019-10-08 | XR_ITS ---
EXAMINATION: XR chest 1V portable DATE: 10/28/2019 06:15 INDICATION: Respiratory failure. Pneumonia. TECHNIQUE: A single frontal view of the chest was obtained. COMPARISON: Chest single view 10/27/2019, CT abdomen and pelvis 10/26/2019, chest CT 10/19/2019 FINDINGS: The patient is rotated to his left. There are lucencies in the upper lungs, consistent with emphysema. There are airspace opacities in the mid and lower lung zones, worst at left lung base. Th ere are likely small pleural effusions. No pneumothorax. The heart size is normal. A right internal j ugular central venous catheter is seen with tip in the superior vena cava. IMPRESSION: 1. Airspace opacities in the mid and lower lung zones with worsening on the right, consistent with at electasis versus pneumonia. 2. Small pleural effusions. 3. Emphysema. Reviewed, dictated and finalized at location A. IMPRESSION: 1. Airspace opacities in the mid and lower lung zones with worsening on the rig ht, consistent with atelectasis versus pneumonia. 2. Small pleural effusions. 3. Emphysema.
--- NOTE | ~2019-10-08 | XR_ITS ---
XR chest 1V portable DATE: 11/01/2019 06:29 INDICATION: Aspiration pneumonia TECHNIQUE: Portable AP chest on 11/01/2019 at 0619 hours COMPARISON: 10/31/2019 portable AP chest at 0537 hours FINDINGS: Right internal jugular central venous catheter tip overlies the superior vena cava. There i s no evidence of pneumothorax. There are diffuse bilateral pulmonary infiltrates; diffusion diagnosis includes pulmonary edema in pa rticular, although pneumonia and aspiration are not excluded.. There is increased radiographic densit y on the left suggesting left lower lobe atelectasis and/or consolidation. Small pleural effusions ar e suggested. IMPRESSION: Diffuse bilateral pulmonary infiltrates, increased since 10/31/2019 Reviewed, dictated and finalized at location A.
--- NOTE | ~2019-10-08 | CT_ITS ---
EXAMINATION:CT chest wo con DATE: 10/19/2019 22:16 INDICATION: Respiratory failure. TECHNIQUE: Computed tomography (CT) of the chest was performed without intravenous contrast. Automate d exposure control and iterative reconstruction technique were employed. The dose-length product (DLP ) was 632.19 mGy-cm. COMPARISON: Chest CT 07/26/2019, CT abdomen and pelvis 10/13/2019 FINDINGS: There is mild emphysema. There are small pleural effusions. There are patchy airspace and g roundglass opacities and nodules involving all lobes, consistent with pneumonia. There is dependent p assive atelectasis bilaterally. A calcified left lung nodule and calcified left hilar lymph nodes are consistent with old granulomatous disease. Cardiomegaly is noted. There are coronary artery calcific ations. There is a moderate-sized pericardial effusion. There is mild mediastinal lymphadenopathy. T he endotracheal tube tip is in expected position above the jhonny. There is a right internal jugular central venous catheter with tip in superior vena cava. The nasogastric tube tip is in the stomach. T here is a 3.9 cm nodule in right thyroid lobe. The central pulmonary arteries are enlarged, consisten t with pulmonary arterial hypertension. There is mild thoracic spondylosis. There is a chronic compre ssion fracture of T11. IMPRESSION: 1. Multifocal pneumonia. 2. Small pleural effusions with interval worsening on the right. 3. Cardiomegaly. 4. Stable moderate-sized pericardial effusion. 5. Mild mediastinal lymphadenopathy, likely reactive. 6. Thyroid nodule. Consider thyroid ultrasound for risk stratification after resolution of acute dise ase. Reviewed, dictated and finalized at location A. IMPRESSION: 1. Multifocal pneumonia. 2. Small pleural effusions with interval worsening on the right. 3. Cardiomegaly. 4. Stable moderate-sized pericardial effusion. 5. Mild mediastinal lymphadenopathy, likely reactive. 6. Thyroid nodule. Consider thyroid ultrasound for risk stratification after re solution of acute disease.
--- NOTE | ~2019-10-08 | XR_ITS ---
EXAMINATION: XR chest 1V portable EXAM DATE: 11/03/2019 06:07 INDICATION: Aspiration pneumonia. TECHNIQUE: Portable AP frontal chest x-ray was obtained. Comparison is made to prior examination from 11/02/2019. FINDINGS: Moderate left pleural effusion layering posteriorly. There is moderate amount of bilateral edema and/or pneumonia. Cardiac silhouette is enlarged but stable in size compared to prior exam. The re is aortic arteriosclerosis. Right IJ venous line. There is no pneumothorax suspected. There are no osseous abnormalities identified. Compared to yesterday, the left pleural effusion have increased in size. IMPRESSION: 1. Cardiomegaly, moderate left pleural effusion. 2. Moderate amount of bilateral edema and/or pneumonia. Reviewed, dictated and finalized at location A.
--- NOTE | ~2019-10-08 | XR_ITS ---
EXAMINATION: XR chest 2V EXAM DATE: 10/08/2019 12:38 INDICATION: Shortness of breath, CHF. COPD. TECHNIQUE: Frontal and lateral projections of the chest obtained and reviewed. Comparison is made to prior examination from 08/03/2019. FINDINGS: The lungs are clear. There are no pleural effusions. Cardiac silhouette is prominent but magnified on this AP technique. There is no pneumothorax suspected. The bones and soft tissues are unremarkable. Resolution of previously seen airspace disease, pleural effusions . IMPRESSION: No acute cardiopulmonary findings. Reviewed, dictated and finalized at location A.
--- NOTE | ~2019-10-08 | XR_ITS ---
EXAMINATION: XR chest 1V portable DATE: 10/30/2019 06:12 INDICATION: Aspiration pneumonia. TECHNIQUE: A single frontal view of the chest was obtained. COMPARISON: Chest single view 10/29/2019, CT abdomen and pelvis 10/26/2019 FINDINGS: There is a diffuse interstitial pattern in the lungs, consistent with pulmonary edema. Ther e are small pleural effusions. There are airspace opacities at the lung bases. No pneumothorax. Cardi omegaly is noted. A right internal jugular central venous catheter is seen with tip in the superior v azul cava. IMPRESSION: 1. Mild pulmonary edema. 2. Airspace opacities at the lung bases with improvement on the right and worsening on the left, cons istent with atelectasis versus pneumonia. 3. Small pleural effusions with worsening on the left. Reviewed, dictated and finalized at location A. IMPRESSION: 1. Mild pulmonary edema. 2. Airspace opacities at the lung bases with improvement on the right and worse adry on the left, consistent with atelectasis versus pneumonia. 3. Small pleural effusions with worsening on the left.
--- NOTE | ~2019-10-08 | XR_ITS ---
EXAMINATION: XR chest 1V portable DATE: 10/20/2019 05:37 INDICATION: Acute respiratory failure TECHNIQUE: frontal view of the chest was obtained. COMPARISON: Chest radiograph and CT dated 10/19/2019 FINDINGS: Endotracheal tube tip 6.3 cm above the jhonny. Right internal jugular central venous catheter with di stal tip at the midsuperior vena cava. Nasogastric tube extends below the left hemidiaphragm with di stal tip collimated off the study. There is unchanged patchy airspace opacities scattered throughout both lungs superimposed over a unde rlying gradient of lower lung predominant hazy airspace opacity in the bladder consistent with small bilateral pleural effusions. No pneumothorax. Cardiomegaly. Visualized bones and soft tissues are unr emarkable. IMPRESSION: 1. Endotracheal tube tip 6.3 cm above the jhonny. Recommend advancement by 4 cm. 2. Patchy bilateral lung disease consistent with pneumonia. 3. Small bilateral pleural effusions. Reviewed, dictated and finalized at location A. IMPRESSION: 1. Endotracheal tube tip 6.3 cm above the jhonny. Recommend advancement by 4 cm . 2. Patchy bilateral lung disease consistent with pneumonia. 3. Small bilateral pleural effusions.
--- NOTE | ~2019-10-08 | XR_ITS ---
EXAMINATION: XR chest 1V portable DATE: 10/27/2019 06:18 INDICATION: Respiratory failure. Pneumonia. TECHNIQUE: A single frontal view of the chest was obtained. COMPARISON: Chest single view 10/26/2019, CT abdomen and pelvis 10/26/2019 FINDINGS: There are airspace opacities in the perihilar regions and at left lung base. There is a sma ll left pleural effusion. No pneumothorax. Cardiomegaly is noted. Calcified left lung nodules are con sistent with old granulomatous disease. The endotracheal tube tip is 6.4 cm above the jhonny. The joanna ogastric tube tip is beyond the inferior margin of the radiograph, but at least to the stomach. A rig ht internal jugular central venous catheter is seen with tip in the superior vena cava. IMPRESSION: 1. Airspace opacities in the perihilar regions and at left lung base with interval improvement, consi stent with atelectasis versus pneumonia. 2. Stable small left pleural effusion. 3. Cardiomegaly. Reviewed, dictated and finalized at location A. IMPRESSION: 1. Airspace opacities in the perihilar regions and at left lung base with inter sanchez improvement, consistent with atelectasis versus pneumonia. 2. Stable small left pleural effusion. 3. Cardiomegaly.
--- NOTE | ~2019-10-08 | XR_ITS ---
EXAMINATION: XR barium swallow modified EXAM DATE: 10/29/2019 14:50 INDICATION: Dysphagia. TECHNIQUE: Modified barium esophagram was performed by myself to administered fluoroscopy, in conjun ction with speech pathologist who administered barium in varying consistencies as per speech patholog ist documentation. This was recorded on tape. The DAP for this procedure was 1.5 Gycm2. FINDINGS: Oral stage: Delayed trigger. Pharyngeal phase: Adequate function. Laryngeal penetration: Demonstrated, thin liquids. Aspiration: Demonstrated, thin liquids. Laryngeal sensitivity: Absent. IMPRESSION: Oral feedings recommended with limitations as per speech pathologist. Please refer to s wilmar pathologist findings and specific feeding recommendations. Reviewed, dictated and finalized at location A. IMPRESSION: Oral feedings recommended with limitations as per speech pathologis t. Please refer to speech pathologist findings and specific feeding recommend ations.
--- NOTE | ~2019-10-08 | XR_ITS ---
EXAMINATION: XR chest port-a-cath/central INDICATION: Central line insertion TECHNIQUE: Portable AP chest at 1751 hours COMPARISON: 1234 hours FINDINGS: A right internal jugular central venous catheter has been inserted which ends with its tip in the distal superior vena cava. There is no pneumothorax. The lungs are free of acute opacities. Th e cardiomediastinal silhouette is stable. IMPRESSION: 1. Right internal jugular central venous catheter insertion without pneumothorax. Reviewed, dictated and finalized at location A. IMPRESSION: 1. Right internal jugular central venous catheter insertion without pneumothora x.
--- NOTE | ~2019-10-08 | XR_ITS ---
EXAMINATION: XR chest 1V portable DATE: 10/19/2019 05:48 INDICATION: Acute respiratory failure TECHNIQUE: frontal view of the chest was obtained. COMPARISON: Chest radiograph dated 10/18/2019 FINDINGS: Right internal jugular central venous catheter with distal tip in the midsuperior vena cava. Worsenin g now complete opacification of the left hemithorax consistent with enlarging left pleural effusion a nd associated atelectasis and/or pneumonia. Diffuse increased interstitial pattern with Andres B-line s in the right lung consistent with mild pulmonary edema. More dense well-defined opacity at the righ t hilum. Cardiomegaly. Calcified left hilar lymph nodes consistent with old granulomatous disease. IMPRESSION: 1. Complete opacification of the left hemidiaphragm consistent with increasing and large left pleural effusion with associated atelectasis and/or pneumonia. 2. New opacity at the right hilum which could represent atelectasis, pneumonia, small loculated pleur al effusion or enlarged pulmonary arteries related to pulmonary arterial hypertension. 3. Mild pulmonary edema. 4. Enlarged cardiac silhouette consistent with cardiomegaly and pericardial effusion is seen on prior CT. Reviewed, dictated and finalized at location A. IMPRESSION: 1. Complete opacification of the left hemidiaphragm consistent with increasing and large left pleural effusion with associated atelectasis and/or pneumonia. 2. New opacity at the right hilum which could represent atelectasis, pneumonia, small loculated pleural effusion or enlarged pulmonary arteries related to pul monary arterial hypertension. 3. Mild pulmonary edema. 4. Enlarged cardiac silhouette consistent with cardiomegaly and pericardial eff usion is seen on prior CT.
--- NOTE | ~2019-10-08 | XR_ITS ---
EXAMINATION: XR chest 1V portable DATE: 10/16/2019 05:41 INDICATION: Acute respiratory failure requiring ventilation TECHNIQUE: frontal view of the chest was obtained. COMPARISON: Chest radiograph dated 10/15/2019 FINDINGS: Endotracheal tube tip 5.8 cm above the jhonny. Right internal jugular central venous catheter with di stal tip at the midsuperior vena cava. Nasogastric tube extends below the left hemidiaphragm with di stal tip collimated off the study. Gradient of lower lung predominant diffuse hazy airspace opacity throughout the left hemithorax with more dense consolidation in the left lower lung zone consistent with atelectasis and/or pneumonia. In creased interstitial pattern and mild airspace opacities in the perihilar regions and right lower aide g zone. The cardiomediastinal silhouette is normal. IMPRESSION: 1. No significant interval change in perihilar and basilar predominant increased interstitial pattern which could represent atelectasis or mild pulmonary edema. 2. Unchanged small left pleural effusion with associated left basilar atelectasis and/or pneumonia. Reviewed, dictated and finalized at location A. IMPRESSION: 1. No significant interval change in perihilar and basilar predominant increase d interstitial pattern which could represent atelectasis or mild pulmonary nino a. 2. Unchanged small left pleural effusion with associated left basilar atelectas is and/or pneumonia.
--- NOTE | ~2019-10-08 | CT_ITS ---
EXAMINATION: CT abdomen pelvis w con EXAM DATE: 10/08/2019 13:18 INDICATION: Low abdominal pain. TECHNIQUE: Spiral CT of the abdomen and pelvis was performed following intravenous injection of 100 m L Omnipaque 350. Axial, coronal and sagittal images were reviewed. The dose-length product (DLP) fo r this examination was 889.63 mGy-cm. The exposure was tailored according to patient size (auto mA e xposure control), and iterative reconstruction (ASIR) was used as additional dose reduction technique . Comparison is made to prior examination from 07/26/2019. FINDINGS: There is complex cystic fluid collection in the gallbladder fossa measuring 8 x 10 cm in gr eatest axial dimensions, with multiple enhancing septations. This appears to be contiguous to another similar pocket fluid anterior to the left liver lobe measuring 5 x 12 cm. Appearance is most consist ent with abscess, assuming patient did have interval cholecystectomy. There is edema of the pyloric w all and duodenum. Small amount of ascites. No free intraperitoneal gas or gas within the complex flui d pockets. Liver contour is being distorted from the fluid collections. There is hepatic steatosis and mild edna portal edema. No biliary dilation. Portal and splenic veins are patent. Kidneys enhance symmetric ally. There is no hydronephrosis. The prostate is unremarkable. The bladder is collapsed with Fol ey catheter balloon anchor inside. There is no retroperitoneal or pelvic lymphadenopathy. There is moderate scattered arteriosclerotic disease. The appendix is normal. There is extensive sigmoid predominant colonic diverticulosis. There is no a djacent inflammatory change to suggest diverticulitis. Mild small bowel ileus. There is expected namrata unt of colonic stool. No free intraperitoneal gas. Heart is normal in size. There is moderate-siz ed pericardial effusion. The lung bases are unremarkable. There are no osteoblastic or osteolytic l esions identified. There is chronic mild to moderate central compression fracture of T11. IMPRESSION: 1. Multiloculated abscess with one lobulation in the gallbladder fossa (up to 10 cm) and the other a nterior to the left liver lobe (up to 12 cm). Most likely abscess, assuming patient had cholecystecto my following CT scan in July. Would be amenable to ultrasound-guided percutaneous drainage. 2. Moderate pericardial effusion. 3. Small ascites. 4. Mild ileus. 5. Extensive colonic diverticulosis. Reviewed, dictated and finalized at location B. IMPRESSION: 1. Multiloculated abscess with one lobulation in the gallbladder fossa (up to 10 cm) and the other anterior to the left liver lobe (up to 12 cm). Most likely abscess, assuming patient had cholecystectomy following CT scan in July. Woul d be amenable to ultrasound-guided percutaneous drainage. 2. Moderate pericardial effusion. 3. Small ascites. 4. Mild ileus. 5. Extensive colonic diverticulosis.
--- NOTE | ~2019-10-08 | XR_ITS ---
EXAMINATION: XR chest 1V portable DATE: 10/26/2019 06:40 INDICATION: Respiratory failure. Pneumonia. TECHNIQUE: A single frontal view of the chest was obtained. COMPARISON: Chest single view 10/25/2019, CT chest 10/19/2019 FINDINGS: There are airspace opacities in all lung zones bilaterally with a lower lung predominance. There are small pleural effusions. No pneumothorax. Cardiomegaly is noted. The endotracheal tube tip is 7.3 cm above the jhonny. The nasogastric tube tip is beyond the inferior margin of the radiograph, but at least to the stomach. A right internal jugular central venous catheter is seen with tip in th e superior vena cava. IMPRESSION: 1. Diffuse lung disease with slight worsening, consistent with pneumonia. 2. Stable small pleural effusions. 3. Cardiomegaly. Reviewed, dictated and finalized at location A.
--- NOTE | ~2019-10-08 | MR_ITS ---
EXAMINATION: MR brain/brain stem wo con EXAM DATE: 11/04/2019 10:59 INDICATION: Change in mental status, unequal pupils. TECHNIQUE: Magnetic resonance imaging (MRI) of the brain/brain stem obtained without contrast. Sagitt al T1, axial diffusion, gradient echo (T2*), T1, T2, FLAIR sequences obtained. Correlation is made t o head CT from 11/03/2019. FINDINGS: There are no areas of restricted diffusion to suggest acute infarction. There is no acute hemorrhage seen on the T2*, a hemosiderin sensitive sequence. No intraparenchymal brain mass lesion. There is mild periventricular and subcortical T2/FLAIR signal hyperintensity, nonspecific but probab ly related to small vessel ischemic disease (microangiopathy). There is moderate prominence of the sulci and ventricles related to cerebral atrophy. There are no extra-axial collections. Flow voids are seen in the cerebral arteries on the T2-weighted sequences consistent with their expected patenc y. Patient has had bilateral ocular lens surgery. Soft tissue is unremarkable. Bilateral mastoid e ffusions. IMPRESSION: 1. No acute intracranial findings. 2. Chronic age related findings. 3. Bilateral mastoid effusions. Reviewed, dictated and finalized at location A.
--- NOTE | ~2019-10-08 | CT_ITS ---
EXAMINATION: CT abdomen wo con DATE: 10/13/2019 15:56 INDICATION: Hepatic abscess status post percutaneous drainage. TECHNIQUE: Computed tomography (CT) of the abdomen was performed without intravenous contrast. Automa renetta exposure control and iterative reconstruction technique were employed. The dose-length product wa s 941.67 mGy-cm. COMPARISON: CT abdomen and pelvis 10/08/2019, 07/26/2019 FINDINGS: The visualized portions of the lung bases demonstrate small pleural effusions with dependen t passive atelectasis. There are chronic peripheral reticular opacities in left upper lobe and right middle lobe. Calcified left lung nodules are consistent with old granulomatous disease. There is left atrial enlargement of the heart. There are coronary artery calcifications. There is a moderate-sized pericardial effusion. There is diffuse hepatic steatosis. Calcifications in the spleen are consisten t with old granulomatous disease. The pancreas, adrenal glands, and left kidney are normal. There is a 4.0 cm peripelvic cyst in right kidney. There is mild caliectasis in right kidney upper pole. There is a percutaneous drain in the gallbladder fossa. The gallbladder is not identified and was likely d estroyed by abscess. There is no residual abscess in the area of the pigtail loop. There is 11.1 x 3. 5 x 8.4 cm abscess anteroinferior to the liver that previously measured 12.4 x 4.4 x 11.1 cm. The pig tail catheter passes through this collection but is likely not optimally positioned to drain it. Ther e is a moderate volume of ascites. There are scattered diverticula in the colon. There are multiple d ilated loops of small bowel with transition point in the anterior abdomen. Distal decompressed loops of small bowel are noted. The appendix is normal. Body wall edema is noted. There are no pathological ly enlarged lymph nodes. There is severe lower lumbar spondylosis. There are chronic compression frac tures of L2 and T11. IMPRESSION: 1. Resolution of the gallbladder fossa abscess component status post percutaneous drainage. The 11.1 x 3.5 x 8.4 cm abscess component anteroinferior to the liver demonstrates interval improvement. Consi jovanny a second drain. 2. Worsened moderate volume of ascites. 3. Small bowel obstruction. 4. Worsened small pleural effusions. 5. Stable moderate-sized pericardial effusion. Reviewed, dictated and finalized at location A. IMPRESSION: 1. Resolution of the gallbladder fossa abscess component status post percutaneo us drainage. The 11.1 x 3.5 x 8.4 cm abscess component anteroinferior to the li delia demonstrates interval improvement. Consider a second drain. 2. Worsened moderate volume of ascites. 3. Small bowel obstruction. 4. Worsened small pleural effusions. 5. Stable moderate-sized pericardial effusion.
--- NOTE | ~2019-10-08 | XR_ITS ---
EXAMINATION: XR chest 1V portable DATE: 10/29/2019 06:06 INDICATION: Respiratory failure. Pneumonia. TECHNIQUE: A single frontal view of the chest was obtained. COMPARISON: Chest single view 10/28/2019, CT abdomen and pelvis 10/26/2019 FINDINGS: There are airspace opacities in all lung zones bilaterally with sparing of the lung apices. There are small pleural effusions. No pneumothorax. There is enlargement of the cardiac silhouette. A right internal jugular central venous catheter is seen with tip in the superior venae cava. IMPRESSION: 1. Worsened diffuse lung disease, consistent with pulmonary edema versus pneumonia. 2. Small pleural effusions. 3. Enlargement of the cardiac silhouette, likely a combination of cardiomegaly and pericardial effusi on as seen on the prior CT. Reviewed, dictated and finalized at location A. IMPRESSION: 1. Worsened diffuse lung disease, consistent with pulmonary edema versus pneumo seamus. 2. Small pleural effusions. 3. Enlargement of the cardiac silhouette, likely a combination of cardiomegaly and pericardial effusion as seen on the prior CT.
--- NOTE | ~2019-10-08 | US_ITS ---
EXAMINATION: US guide abscess drainage DATE: 10/14/2019 13:05 INDICATION: Hepatic abscess with nondraining component in the right upper quadrant anterior abdominal wall. TECHNIQUE: The procedure including the risks and benefits was discussed with the patient. Risks discu ssed included bleeding including hemorrhage and bile peritonitis. Oral and written consent were obtai boogie. The patient was confirmed to be receiving appropriate antibiotic coverage. The skin overlying t he abdominal wall abscess the right upper quadrant including the site of the previously placed percut aneous abscess drain was prepped and draped in usual sterile fashion. Anesthetic was administered wi th 1% lidocaine subcutaneously. An 8.5 Fr catheter was inserted into the loculated abdominal wall fl uid collection by trocar technique. The metal stiffener and trocar needle were removed, and the pigta il tip was locked. The catheter was attached to suction drainage and drained approximately 70 mL of o paque purulent appearing humphries green-tinged fluid. The catheter was stitched to the skin with suture. A ntibiotic appointment and a sterile dressing was applied to both catheters. There were no immediate c omplications. FINDINGS: There is approximately 11.8 x 10.9 x 3.2 cm loculated complex fluid collection in the abdominal wall anterior to the site of the previously drained hepatic abscess. Final images demonstrate the catheter coiled within the fluid collection. IMPRESSION: 1. Successful ultrasound-guided right upper quadrant anterior abdominal wall percutaneous abscess clay in catheter placement. 2. The catheter will be managed by Dr. Gonzales. Reviewed, dictated and finalized at location A. IMPRESSION: 1. Successful ultrasound-guided right upper quadrant anterior abdominal wall pe rcutaneous abscess drain catheter placement. 2. The catheter will be managed by Dr. Gonzales.
--- NOTE | ~2019-10-08 | CT_ITS ---
EXAMINATION: CT abdomen pelvis w con DATE: 10/26/2019 09:01 INDICATION: Gallbladder abscess. Septic shock. TECHNIQUE: Computed tomography (CT) of the abdomen and pelvis was performed with 100 mL Omnipaque 350 intravenous contrast. Automated exposure control and iterative reconstruction technique were employe d. The dose-length product was 1568.26 mGy-cm. COMPARISON: CT abdomen and pelvis 10/19/2019 FINDINGS: The visualized portions of the lung bases demonstrate moderate-sized pleural effusions with dependent passive atelectasis. There is mild emphysema. There is left atrial enlargement of the hear t. There are coronary artery calcifications. There is a moderate-sized pericardial effusion. The live r is normal. Calcifications in the spleen are consistent with old granulomatous disease. The pancreas and adrenal glands are normal. There are cysts in the kidneys measuring up to 4.4 cm on the right. T here is diverticulosis of the colon without evidence of diverticulitis. The appendix is normal. There are no dilated loops of bowel. There is a small volume of free ascites. There is a 5.7 x 1.6 cm rim enhancing fluid collection in the gallbladder fossa. There are 2 percutaneous drains anteroinferior t o the liver without fluid around the drains. There is 11.5 x 1.7 cm rim-enhancing fluid collection at the undersurface of right hepatic lobe with percutaneous drain within the fluid collection. There is a 13.6 x 5.2 x 2.0 cm rim-enhancing fluid collection in left paracolic gutter. There is a 5.6 x 2.1 cm enhancing fluid collection in the pelvis. Body wall edema is noted. There are no pathologically en larged lymph nodes. There is severe lower lumbar spondylosis. There are chronic compression fractures of T10, T11, and L2. The nasogastric tube tip is in the stomach. IMPRESSION: 1. 11.5 x 1.7 cm abscess at the undersurface of right hepatic lobe with interval improvement with per cutaneous drain within the fluid collection. 2. Two drains anteroinferior to the liver not surrounded by fluid. 3. Rim-enhancing fluid collections in the left paracolic gutter and pelvis with interval improvement, consistent with abscesses. 4. Small volume of free ascites. 5. Moderate-sized pleural effusions, worsened on the right from 10/19/2019. Reviewed, dictated and finalized at location A. IMPRESSION: 1. 11.5 x 1.7 cm abscess at the undersurface of right hepatic lobe with interva l improvement with percutaneous drain within the fluid collection. 2. Two drains anteroinferior to the liver not surrounded by fluid. 3. Rim-enhancing fluid collections in the left paracolic gutter and pelvis with interval improvement, consistent with abscesses. 4. Small volume of free ascites. 5. Moderate-sized pleural effusions, worsened on the right from 10/19/2019.
--- NOTE | ~2019-10-08 | CT_ITS ---
EXAMINATION: CT soft tissue neck wo con DATE: 10/26/2019 09:00 INDICATION: Neck swelling. TECHNIQUE: Computed tomography (CT) of the neck was performed without intravenous contrast. Automated exposure control and iterative reconstruction technique were employed. The dose-length product was 5 82.25 mGy-cm. COMPARISON: None FINDINGS: There are likely changes of ocular lens replacement surgeries. There is a 3.6 cm nodule in right thyroid lobe. There is mild emphysema. There are small pleural effusions. The endotracheal tube tip is in expected position above the jhonny. A nasogastric tube is noted. A right internal jugular central venous catheter is seen with tip beyond the inferior margin of the scan. There are no patholo gically enlarged lymph nodes. The pharynx and larynx are unremarkable. There is moderate cervical spo ndylosis. There are periapical lucencies around many of the teeth. IMPRESSION: 1. Mild emphysema. 2. Small pleural effusions. 3. Right thyroid nodule. Consider thyroid ultrasound after resolution of acute disease for risk strat ification. 4. Dental disease. Reviewed, dictated and finalized at location A. IMPRESSION: 1. Mild emphysema. 2. Small pleural effusions. 3. Right thyroid nodule. Consider thyroid ultrasound after resolution of acute disease for risk stratification. 4. Dental disease.
--- NOTE | ~2019-10-08 | CT_ITS ---
EXAMINATION: CT brain wo con DATE: 11/07/2019 20:19 INDICATION: Neurological changes. CVA. Abnormal pupils. TECHNIQUE: Computed tomography (CT) of the head was performed without intravenous contrast. The dose- length product was 681.00 mGy-cm. The mA was adjusted according to patient size. Iterative reconstruc tion technique was employed. COMPARISON: CT dated 11/03/2019 FINDINGS: Chronic lacunar infarctions of the right caudate nucleus and margaret. Generalized atrophy. The re are scattered mild periventricular and subcortical white matter changes, most likely related to sm all vessel ischemic disease (microangiopathy). There is intracranial atherosclerosis. Small mastoid e ffusions. No acute intracranial hemorrhage, infarction, mass or mass effect. IMPRESSION: 1. No acute intracranial abnormality. 2: Chronic lacunar infarctions. 3: Chronic age-related findings. Dr. Gerard discussed with the patient's nurse in [facility], at 11/07/2019 20:25 CDT. Reviewed, dictated and finalized at location A.
--- NOTE | ~2019-10-08 | CT_ITS ---
EXAMINATION: CT abdomen pelvis w con DATE: 10/19/2019 22:18 INDICATION: Gallbladder abscess. Septic shock. TECHNIQUE: Computed tomography (CT) of the abdomen and pelvis was performed with 100 mL Omnipaque 350 intravenous contrast. Automated exposure control and iterative reconstruction technique were employe d. The dose-length product was 1585.32 mGy-cm. COMPARISON: CT abdomen 10/13/2019 FINDINGS: There is a 6 mm cyst in the liver. There is a pigtail drain in the gallbladder fossa. The g allbladder has been destroyed by the recent abscess. There is a pigtail drain anteroinferior to the l iver. There is no residual fluid in these locations. Calcifications in the spleen are consistent with old granulomatous disease. The pancreas and adrenal glands are normal. There is a 4.1 cm peripelvic cyst in right kidney. There is an 8 mm cyst in left kidney. There is diverticulosis of the colon with out evidence of diverticulitis. There are no dilated loops of bowel. The appendix is normal. There is a moderate volume of ascites. There is a rim-enhancing fluid collection at the undersurface of right hepatic lobe measuring 15.8 x 6.3 x 11.7 cm. There is peritoneal thickening and enhancement in the p ryan and left paracolic gutter. There is a left inguinal hernia containing fat. There are no patholo gically enlarged lymph nodes. Body wall edema is noted. There is a Coombs catheter in expected positio n. There is severe lower lumbar spondylosis. There is a chronic compression fracture of L2. IMPRESSION: 1. Moderate volume of ascites with areas of peritoneal thickening and enhancement in left paracolic g utter and in the pelvis, likely an exudate. 2. Rim-enhancing fluid collection at the undersurface of right hepatic lobe, consistent with abscess. 3. Pigtail drains in the gallbladder fossa and anteroinferior to the liver. No residual fluid in thes e locations. Reviewed, dictated and finalized at location A. IMPRESSION: 1. Moderate volume of ascites with areas of peritoneal thickening and enhanceme nt in left paracolic gutter and in the pelvis, likely an exudate. 2. Rim-enhancing fluid collection at the undersurface of right hepatic lobe, co nsistent with abscess. 3. Pigtail drains in the gallbladder fossa and anteroinferior to the liver. No residual fluid in these locations.
--- NOTE | ~2019-10-08 | US_ITS ---
EXAMINATION: US percutaneous drain w cath DATE: 10/21/2019 10:54 INDICATION: Perihepatic abscess TECHNIQUE: The procedure including the risks and benefits was discussed with the patient. Risks discu ssed included bleeding including hemorrhage and bile peritonitis. Oral and written consent were obtai boogie. The patient was confirmed to be receiving appropriate antibiotic coverage. The skin overlying t he caudal margin of the liver was prepped and draped in usual sterile fashion. Anesthetic was admini stered with 1% lidocaine subcutaneously. An 8.5 Fr catheter was inserted into the loculated subhepat ic fluid collection by trocar technique. The metal stiffener and trocar needle were removed, and the pigtail tip was locked. Fluid was aspirated and sent for culture. The catheter was stitched to the sk in with suture. Antibiotic appointment and a sterile dressing were applied. The catheter was then att ached to suction drainage and was draining additional fluid at the conclusion of the procedure. There were no immediate complications. FINDINGS: [employer] images demonstrate an approximately 13 x 12 x 6 cm loculated fluid collection along the caudal surface of the liver. There are multiple thin internal septations within the fluid collection. Subseq uent ultrasound images demonstrate the catheter within the fluid collection. 45 mL minimally turbid y ellowish fluid was aspirated and sent to the lab for Gram stain and cultures. IMPRESSION: 1. Successful ultrasound-guided subhepatic abscess drainage catheter. 2. 45 mL of fluid was sent for Gram stain, aerobic, and anaerobic cultures. 3. The catheter will be managed by Dr. Gabriel. Reviewed, dictated and finalized at location A.
--- NOTE | ~2019-10-08 | XR_ITS ---
XR chest ET placement 10/19/2019 08:54 Indication: Respiratory distress. Intubation. Procedure: AP portable chest Comparison: Comparison to multiple prior studies sequentially, with oldest reviewed study dated 10/15. Findings: Endotracheal tube tip 6.2 cm above the jhonny. NG tube passes into the stomach, distal tip not visualized. Diffuse bilateral airspace disease, compatible with edema. Reexpansion of the left arturo ng. Small right pleural effusion. No pneumothorax. Right IJ central line tip in the SVC. Impression: 1: Diffuse bilateral airspace disease, compatible with pulmonary edema. Pneumonia not excluded. 2: Small right pleural effusion. Reviewed, dictated and finalized at location B. Impression: 1: Diffuse bilateral airspace disease, compatible with pulmonary edema. Pneumon ia not excluded. 2: Small right pleural effusion.
--- NOTE | ~2019-10-08 | XR_ITS ---
EXAMINATION: XR chest 1V portable DATE: 10/23/2019 06:06 INDICATION: Respiratory failure TECHNIQUE: frontal view of the chest was obtained. COMPARISON: Chest radiograph dated 10/22/2019 FINDINGS: Endotracheal tube tip 5.4 cm above the jhonny. Nasogastric tube extends below the left hemidiaphragm with distal tip collimated off the study. Right internal jugular central venous catheter with distal tip in the midsuperior vena cava. Gradient of hazy airspace opacities with lower lung predominance in the bilateral mid and lower lung zones with blunting at the costophrenic angles consistent with small bilateral pleural effusions. Add itional more focal airspace opacities in the right mid lung zone and left lower lung zone which could represent associated atelectasis and/or pneumonia. The cardiomediastinal silhouette is normal. IMPRESSION: 1. Opacities in the right mid and left lower lung zones which could represent atelectasis and/or pneu monia. 2. Small bilateral pleural effusions. Reviewed, dictated and finalized at location A. IMPRESSION: 1. Opacities in the right mid and left lower lung zones which could represent a telectasis and/or pneumonia. 2. Small bilateral pleural effusions.
--- NOTE | ~2019-10-08 | XR_ITS ---
XR chest 1V portable DATE: 10/31/2019 06:13 INDICATION: Aspiration pneumonia TECHNIQUE: Portable AP chest on 10/31/2019 at 0537 hours COMPARISON: 10/30/2019 portable AP chest at 0523 hours FINDINGS: There is cardiomegaly. There is pulmonary vascular congestion and redistribution. There is prominence of the minor fissure and pulmonary interstitium as well as mild infiltrate in the mid and lower lung zones, including possible atelectasis and/or consolidation in the left lower lobe, retroca rdiac area. There is aortic calcification. Right internal jugular central venous catheter tip overlies the superior vena cava. No evidence of pn eumothorax. IMPRESSION: Congestive changes, mildly increased since 10/30/2019 Persistent bilateral infiltrates, particularly prominent in the left left lower lobe Reviewed, dictated and finalized at location A.
--- NOTE | ~2019-10-08 | CT_ITS ---
EXAMINATION: CT brain wo con DATE: 11/03/2019 12:36 INDICATION: Neurological changes. TECHNIQUE: Computed tomography (CT) of the head was performed without intravenous contrast. The mA wa s adjusted according to patient size. Iterative reconstruction technique was employed. The dose-lengt h product was 605.33 mGy-cm. COMPARISON: Head CT 07/26/2019 FINDINGS: There are scattered areas of low attenuation in the cerebral white matter, which is within normal limits for the patient's age. There is an old lacunar infarct in right caudate nucleus. There is an old lacunar infarct in the margaret. There is no intracranial hemorrhage, acute infarction, or abno rmal intracranial mass lesion. The ventricles are normal in size. There are likely changes of ocular lens replacement surgeries. There is a chronic 3 mm density in the vitreous of right ocular globe. Th e paranasal sinuses are clear. There are bilateral mastoid effusions. IMPRESSION: 1. 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 Reviewed, dictated and finalized at location A.
--- NOTE | ~2019-10-08 | XR_ITS ---
XR chest 2V 11/08/2019 13:18 Indication: CHF Procedure: AP portable chest Comparison: Comparison to multiple prior studies sequentially, with oldest reviewed study dated 10/31. Findings: Near-complete resolution of edema. Cardiomegaly. Persistent bibasilar airspace disease. Sma ll left pleural effusion. Central line tip in the SVC. No pneumothorax. Impression: 1: Near-complete resolution of interstitial edema. 2: Bibasilar airspace disease, left greater than right, differential diagnosis includes atelectasis and/or pneumonia. 2: Small left pleural effusion. Reviewed, dictated and finalized at location A. Impression: 1: Near-complete resolution of interstitial edema. 2: Bibasilar airspace disease, left greater than right, differential diagnosis includes atelectasis and/or pneumonia. 2: Small left pleural effusion.
--- NOTE | ~2019-10-08 | XR_ITS ---
EXAMINATION: XR chest 1V portable INDICATION: Respiratory failure TECHNIQUE: Portable AP chest at 0533 hours COMPARISON: 10/23/2019 FINDINGS: The endotracheal tube ends approximately 7.7 cm above the jhonny. The nasogastric tube is f ollowed as far as the stomach. Its tip is beyond the inferior margin of the radiograph. A right inter nal jugular central venous catheter ends with its tip in the distal superior vena cava. There is stab le cardiomegaly. Diffuse airspace opacities persist with slight improvement, particularly in the righ t midlung zone. There is no pneumothorax. Small pleural effusions are unchanged. IMPRESSION: 1. Diffuse lung disease with slight improvement, consistent with multifocal pneumonia. 2. Stable cardiomegaly. 3. Endotracheal tube approximately 7.7 cm above the jhonny. Consider advancing. Reviewed, dictated and finalized at location A. IMPRESSION: 1. Diffuse lung disease with slight improvement, consistent with multifocal pne umonia. 2. Stable cardiomegaly. 3. Endotracheal tube approximately 7.7 cm above the jhonny. Consider advancing.
--- NOTE | ~2019-10-08 | XR_ITS ---
EXAMINATION: XR chest 1V portable DATE: 10/15/2019 10:12 INDICATION: Increased oxygen need. Congestion. TECHNIQUE: frontal view of the chest was obtained. COMPARISON: Chest radiograph dated 10/09/2019 FINDINGS: Right internal jugular central venous catheter with distal tip at the midsuperior vena cava. Increasi ng small left pleural effusion. Opacities in the bilateral mid to lower lung zones, left greater than right which could represent atelectasis, mild pulmonary edema or pneumonia. No pneumothorax. Borderl ine heart size. Calcified left hilar lymph nodes consistent with old granulomatous disease. IMPRESSION: 1. Increasing small left pleural effusion. 2. Opacities in the bilateral mid and lower lung zones, left greater than right which could represent associated atelectasis, mild pulmonary edema, pneumonia or some combination thereof. 3. Borderline heart size. Reviewed, dictated and finalized at location A.
--- NOTE | ~2019-10-08 | XR_ITS ---
EXAMINATION: XR abdomen NG/feed tube insert DATE: 10/15/2019 13:55 INDICATION: Orogastric tube placement. TECHNIQUE: An upright view of the abdomen was obtained. COMPARISON: CT abdomen 10/13/2019 FINDINGS: The lower abdomen is excluded. There are dilated loops of small bowel. 2 percutaneous drain s overlie right abdomen. The nasogastric tube tip is in the stomach. There is a small left pleural ef fusion. There are airspace opacities at left lung base. Calcified left hilar lymph nodes are consiste nt with old granulomatous disease. IMPRESSION: 1. Nasogastric tube tip in the stomach. 2. Small left pleural effusion. 3. Airspace opacities at left lung base, consistent with atelectasis versus pneumonia. 4. Small bowel obstruction. Reviewed, dictated and finalized at location A. IMPRESSION: 1. Nasogastric tube tip in the stomach. 2. Small left pleural effusion. 3. Airspace opacities at left lung base, consistent with atelectasis versus pne umonia. 4. Small bowel obstruction.
--- NOTE | ~2019-10-08 | XR_ITS ---
XR chest 1V portable DATE: 11/01/2019 12:06 INDICATION: Congestion TECHNIQUE: Portable AP chest on 11/01/2019 at 1201 hours COMPARISON: 11/01/2019 portable AP chest at 0619 hours FINDINGS: Right internal jugular central venous catheter tip overlies the superior vena cava. There i s no pneumothorax. There is persistent pulmonary vascular congestion and redistribution and bilateral pulmonary infiltra poppy which are more prominent centrally, right greater than left, the central distribution favoring pu lmonary edema. Persistent left lower lobe atelectasis/consolidation. IMPRESSION: No significant change since 11/01/2019 Reviewed, dictated and finalized at location A.
--- NOTE | ~2019-10-08 | XR_ITS ---
EXAMINATION: XR chest 1V portable DATE: 10/21/2019 06:14 INDICATION: Respiratory failure TECHNIQUE: frontal view of the chest was obtained. COMPARISON: Chest radiograph dated 10/20/2019. FINDINGS: Endotracheal tube tip 7.8 cm above the jhonny. Nasogastric tube extends below the left hemidiaphragm with distal tip collimated off the study. Right internal jugular central venous catheter with distal tip at the midsuperior vena cava. Increasing gradient of hazy airspace opacity throughout the right mid to lower lung zone and at the l eft lower lung zone with blunting at the costophrenic angles consistent with increasing small to mode rate right and small left pleural effusions. Persistent superimposed scattered patchy airspace opacit ies in both lungs consistent with associated atelectasis and/or pneumonia. Heart size is normal. IMPRESSION: 1. Increasing small to moderate right and small left pleural effusions. 2. No significant change in superimposed scattered atelectasis and/or pneumonia. 3. Endotracheal tube tip 7.8 cm above the jhonny. Recommend advancement by 5 cm. Findings were discus sed with Vito Mera, the nurse caring for the patient, at 8:05 AM. Reviewed, dictated and finalized at location A. IMPRESSION: 1. Increasing small to moderate right and small left pleural effusions. 2. No significant change in superimposed scattered atelectasis and/or pneumonia . 3. Endotracheal tube tip 7.8 cm above the jhonny. Recommend advancement by 5 cm . Findings were discussed with Vito Mera, the nurse caring for the patient, at 8:05 AM.
--- NOTE | ~2019-10-08 | XR_ITS ---
EXAMINATION: XR chest 1V portable EXAM DATE: 11/02/2019 06:05 INDICATION: Aspiration pneumonia. TECHNIQUE: Portable AP frontal chest x-ray was obtained. Comparison is made to prior examination from 11/01/2019. FINDINGS: Small to moderate left pleural effusion layering posteriorly. There is moderate amount of b ilateral edema and/or pneumonia. Cardiac silhouette is enlarged but stable in size compared to prior exam. There is aortic arteriosclerosis. Right IJ venous line. There is no pneumothorax suspected. The re are no osseous abnormalities identified. IMPRESSION: 1. Cardiomegaly, small to moderate left pleural effusion. 2. Moderate amount of bilateral edema and/or pneumonia. Reviewed, dictated and finalized at location A.
--- NOTE | ~2019-10-08 | US_ITS ---
EXAMINATION: US guide abscess drainage DATE: 10/08/2019 17:07 INDICATION: Acute cholecystitis with right upper quadrant abscess. Sepsis. TECHNIQUE: The procedure including the risks and benefits was discussed with the patient. Risks discu ssed included bleeding including hemorrhage and bile peritonitis. Oral and written consent were obtai boogie. The patient was confirmed to be receiving appropriate antibiotic coverage. The skin overlying t he liver and gallbladder was prepped and draped in usual sterile fashion. Anesthetic was administere d with 1% lidocaine subcutaneously. An 8.5 Fr catheter was inserted through the superficial componen t of the complex fluid collection and extending into the deeper complex fluid collection at the gallb ladder fossa by trocar technique. The metal stiffener and trocar needle were removed, and the pigtail tip was locked. Opaque humphries-colored purulent fluid was aspirated and sent for culture. The catheter w as stitched to the skin with suture and a sterile dressing applied. There were no immediate complicat ions. The catheter was then connected to suction drainage. FINDINGS: 11.5 x 7.1 cm complex fluid collection at the gallbladder fossa with suggestion of rupture decompressed gallbladder within the deep aspect of the fluid collection. There is a tiny communicatio n between this fluid collection and an additional 10.8 x 3.7 cm superficial complex fluid collection which tracks between the abdominal wall musculature in the anterior margin of the liver. Subsequent i mages demonstrate the catheter extending through the more superficial collection, across the tiny com municating orifice and with the distal loop formed within the deeper complex fluid collection. 50 mL of purulent appearing fluid was aspirated and sent to the lab for Gram stain and cultures. IMPRESSION: 1. Successful ultrasound-guided abscess drain catheter placement through a more superficial abscess c avity and into the deeper abscess cavity at the gallbladder fossa which appears to surround the ruptu red gallbladder. 2. 60 mL of purulent appearing fluid was sent for aerobic, anaerobic, and fungal cultures. 3. The catheter will be managed by Dr. Gonzales. Reviewed, dictated and finalized at location A. IMPRESSION: 1. Successful ultrasound-guided abscess drain catheter placement through a more superficial abscess cavity and into the deeper abscess cavity at the gallbladd er fossa which appears to surround the ruptured gallbladder. 2. 60 mL of purulent appearing fluid was sent for aerobic, anaerobic, and funga l cultures. 3. The catheter will be managed by Dr. Gonzales.
--- NOTE | ~2019-10-08 | XR_ITS ---
EXAMINATION: XR chest 1V portable DATE: 10/18/2019 05:46 INDICATION: Acute respiratory failure. TECHNIQUE: A single frontal view of the chest was obtained. COMPARISON: Chest single view 10/17/2019 FINDINGS: There is a moderate-sized left pleural effusion. There are airspace opacities at left lung base. There is a diffuse interstitial pattern in the lungs. No pneumothorax. There is enlargement of the cardiac silhouette. The endotracheal tube tip is 7.3 cm above the jhonny. The nasogastric tube ti p is beyond the inferior margin of the radiograph, but at least to the stomach. A right internal jugu lar central venous catheter is seen with tip in the superior vena cava. IMPRESSION: 1. Worsened airspace opacities at left lung base, consistent with atelectasis versus pneumonia. 2. Mild pulmonary edema. 3. Worsened moderate-sized left pleural effusion. 4. Enlargement of the cardiac silhouette, likely a combination of cardiomegaly and pericardial effusi on as seen on the prior CT. Reviewed, dictated and finalized at location A. IMPRESSION: 1. Worsened airspace opacities at left lung base, consistent with atelectasis v ersus pneumonia. 2. Mild pulmonary edema. 3. Worsened moderate-sized left pleural effusion. 4. Enlargement of the cardiac silhouette, likely a combination of cardiomegaly and pericardial effusion as seen on the prior CT.
--- NOTE | ~2019-10-08 | XR_ITS ---
XR abdomen NG/feed tube insert INDICATION: Evaluate NG tube position. TECHNIQUE: Limited KUB perform for evaluating NG tube . COMPARISON: 10/15/2019 FINDINGS: NG tube tip in the stomach. Visualized bowel gas pattern is unremarkable.Percutaneous neph rostomy catheters partially visualized. IMPRESSION: 1: NG tube tip in the stomach. Reviewed, dictated and finalized at location B.
--- NOTE | ~2019-10-08 | XR_ITS ---
EXAMINATION: XR chest 1V portable DATE: 10/17/2019 06:33 INDICATION: Acute respiratory failure. TECHNIQUE: A single frontal view of the chest was obtained. COMPARISON: Chest single view 10/16/2019, CT abdomen 10/13/2019 FINDINGS: The patient is rotated to his left. There are airspace opacities at left lung base. There i s a diffuse interstitial pattern, consistent with mild pulmonary edema. There is a small left pleural effusion. No pneumothorax. There is enlargement of the cardiac silhouette. Calcified left hilar lymp h nodes are consistent with old granulomatous disease. The endotracheal tube tip is 4.6 cm above the jhonny. A right internal jugular central venous catheter is seen with tip in the superior vena cava. The nasogastric tube tip is beyond the inferior margin of the radiograph, but at least to the stomach . IMPRESSION: 1. Unchanged airspace opacities at left lung base, consistent with atelectasis versus pneumonia. 2. Mild pulmonary edema. 3. Stable small left pleural effusion. 4. Enlargement of the cardiac silhouette, likely a combination of cardiomegaly and pericardial effusi on as seen on the prior CT. Reviewed, dictated and finalized at location A. IMPRESSION: 1. Unchanged airspace opacities at left lung base, consistent with atelectasis versus pneumonia. 2. Mild pulmonary edema. 3. Stable small left pleural effusion. 4. Enlargement of the cardiac silhouette, likely a combination of cardiomegaly and pericardial effusion as seen on the prior CT.
--- NOTE | 2019-10-08 12:17 | ECG_ITS ---
Measurements Intervals [place] Rate: 71 P: [place]: 0 QRS: 46 QRSD: 86 T: 75 QT: 432 QTc: 472 Interpretive Statements ATRIAL FIBRILLATION ABNORMAL ECG Electronically Signed On 10-08-2019 13:57:31 CDT by Michael Cedeno D.O.
[2019-10-08] MEDS: SODIUM CHLORIDE 0.9% IV 1,000 ML 999 ML IV CONT (12:22)
[2019-10-08 12:26] LABS: Basophils Absolute Auto 0.1 K/mm3 (0.0-0.1); Basophils Percent Auto 0.4 % (0.2-1.2); Hemoglobin 10.4 g/dL (14.0-18.0); Immature Granulocyte Absolute 0.08 K/mm3 (0.00-0.031); Immature Granulocyte Percent A 0.6 % (0-0.5); Lymphocytes Percent Auto 10.4 % (18.3-44.2); Mean Corpuscular HGB Conc 32.5 g/dl (32-36); Mean Corpuscular Hemoglobin 31.4 pg (26-34); Mean Corpuscular Volume 96.7 fl (80-100); Monocytes Absolute Auto 0.4 K/mm3 (0.1-0.6); Monocytes Percent Auto 2.5 % (2.6-8.5); Neutrophils Absolute Auto 12.5 K/mm3 (1.3-6.7); Neutrophils Percent Auto 86.1 % (45.5-73.1); Platelet Count Result 276 k/mm3 (150-375); Red Blood Count 3.31 M/mm3 (4.6-6.20); Red Cell Distribution Width 14.5 % (11.5-14.5); White Blood Count 14.5 K/mm3 (4.5-10.0)
[2019-10-08 12:43] LABS: INR 1.3
[2019-10-08 12:52] LABS: Alanine Aminotransferase 14 U/L (4-50); Albumin Level 2.2 g/dL (3.5-5.1); Alkaline Phosphatase 116 U/L (38-126); Aspartate Amino Transferase 19 U/L (17-59); Bilirubin,Total 0.8 mg/dL (0.2-1.3); Blood Urea Nitrogen 17 mg/dL (9-20); Calcium 8.5 mg/dL (8.4-10.2); Carbon Dioxide 24 mmol/L (22-30); Chloride 98 mmol/L (98-107); Estimated CRCL calculation 61 ml/min; Estimated Glomerular Filt Rate > 60; Glucose 185 mg/dL (75-110); Sodium 130 mmol/L (137-145)
[2019-10-08 13:08] LABS: Magnesium 1.3 mg/dL (1.6-2.3)
--- NOTE | 2019-10-08 13:30 | ED.WEAKNESS ---
HPI - Weakness General Chief complaint: Weakness Stated complaint: Weakness Time Seen by Provider: 10/08/19 12:24 Source: patient Mode of arrival: EMS Limitations: no limitations History of Present Illness HPI Narrative: This patient is a 69 year old male who presents via EMS for generalized weakness. Patient states his primary care physician called his and told him he needed to come to ER. He is not sure why he was sent to ER. He does reports lower abdominal pain x 2 days. He denies nausea, vomiting, fever or diarrhea. He denies chest pain, sob, or cough. He was admitted to hospitalist 2 months ago for evaluation of cholecystitis and atrial fibrillation . He states he has not had any surgery for his gallbladder. Complaint: generalized weakness Related Data Home Medications Medication Instructions Recorded Confirmed aspirin 325 mg PO DAILY 07/25/19 10/02/19 cholecalciferol (vitamin D3) 125 mcg PO DAILY 07/25/19 10/02/19 [Vitamin D3] multivitamin 1 cap PO DAILY 09/07/19 10/02/19 Allergies Allergy/AdvReac Type Severity Reaction Status Date / Time Penicillins Allergy Severe Hives / Verified 10/08/19 12:16 [place] Review of Systems Review of Systems: All systems reviewed & are unremarkable except as noted in HPI and below Constitutional: Constitutional: Denies chills, Denies fever(s) and Reports weakness Cardiovascular: Cardiovascular: Denies chest pain and Denies radiating jaw, neck or arm pain Respiratory: Respiratory: Denies cough, Denies dyspnea and Denies wheezing Gastrointestinal: Gastrointestinal: Reports abdominal pain, Denies constipation, Denies diarrhea, Denies nausea and Denies vomiting Genitourinary: Genitourinary: Reports oliguria Comments: urinary hesitancy Neurologic: Denies dizziness and Reports weakness [facility] Past Medical History Medical History Acute cholecystitis 07/2019 treated with antibiotic therapy Alcohol abuse Atrial fibrillation Not on long-term anticoagulation due to high has bled score. CHF (congestive heart failure) Mild systolic dysfunction noted on echocardiogram from 07/27/2019 45-50%, mild mitral valve regurgitation, mild aortic valve sclerosis and biatrial dilatation Chronic anemia COPD (chronic obstructive pulmonary disease) Essential hypertension GERD (gastroesophageal reflux disease) Histoplasmosis History of BPH History of TIAs Hyperlipidemia Vitamin D deficiency Surgical History Surgical History History of bilateral cataract extraction History of vasectomy Male circumcision Family History Family History Sibling Polio Father Lung cancer Mother Hypertension Social History Social History Social History: Patient drinks (3) 4 oz drinks of Tequila a day prior to his hospitalization in July. Currently he is drinking 2 margaritas a day with 1 shot of Tequila each. He has smoked 1.5 packs cigarettes per day for 55 years. Primary care physician: Dr. Jean-Claude Crawford Code status: Full code. Surrogate decision maker is Raine phone number [phone]. Smoking packs per day: 1.5 Smoking cigarettes per day: 30.0 Years smoked: 60 Smoking pack-years: 90.00 Smoking status: Current every day smoker Tobacco type: cigarettes Second hand tobacco smoke exposure: Yes Alcohol intake: current Drinks per week: 14 Substance use: never Substance use type: marijuana Last use: 1970 Additional living arrangements comments: He lives at home with his . Gender identity (if verbalized by the patient): Male Spiritual care concerns: No Agree to blood products: Yes Exam Const: General: no acute distress and alert Orientation/consciousness: patient oriented x3 HENMT: Head: carine
[2019-10-08 13:46] LABS: Lactic Acid Reflex 2.8 mmol/L (0.7-2.1)
[2019-10-08] MEDS: SODIUM CHLORIDE 0.9% IV 2,700 ML/1,000 ML BAG 999 ML IV CONT ×2 (13:59→14:46)
[2019-10-08] MEDS: metroNIDAZOLE 500 MG/ISO 100ML 500 MG/100 ML BAG 100 MG IVPB ×2 (14:46→21:10)
[2019-10-08 15:27] LABS: Add Urine Microscopic? YES; Appearance Urine Clear (Clear); Bacteria Urine 1+ /hpf; Bilirubin Urine 1+ (Negative); Blood Urine 2+ (Negative); Color Urine Amber (Yellow); Glucose Urine UA Negative (Negative); Ketones Urine Trace mg/dL (Negative); Leukocyte Esterase Ur 2+ LEU/UL (Negative); Mucus Urine Heavy /lpf; Nitrate Urine Negative (Negative); Protein Urine 2+ mg/dL (Negative); RBC Urine >75 /hpf (0-2); Squamous Epithelial Cell Urine Occasional /hpf (Few); WBC Clumps Urine Present /HPF; WBC Urine >75 /hpf
[2019-10-08 15:29] LABS: Specific Grav Ur > 1.060 (1.001-1.035)
--- NOTE | 2019-10-08 15:47 | PC.NURSE ---
Dr Gonzales @ bedside to eval
--- NOTE | 2019-10-08 16:05 | PM.CNGS ---
Assessment and Plan Assessment and plan (1) Hepatic abscess: Code(s): K75.0 - Abscess of liver Status: Acute Assessment and Plan: Set up for ultrasound guided percutaneous drainage today, IV antibiotics initiated in emergency department, await culture results from drainage, questionable ruptured gallbladder (2) Sepsis: Code(s): A41.9 - Sepsis, unspecified organism Status: Acute Assessment and Plan: broad-spectrum antibiotics, set up for percutaneous drainage of hepatic abscess today, ICU care (3) CHF (congestive heart failure): Qualifiers: Heart failure type: systolic Heart failure chronicity: chronic Qualified Code(s): I50.22 - Chronic systolic (congestive) heart failure Code(s): I50.9 - Heart failure, unspecified Status: Acute Assessment and Plan: management per primary team (4) Essential hypertension: Code(s): I10 - Essential (primary) hypertension Status: Chronic Assessment and Plan: management per primary team History of Present Illness Consult details Consult date: 10/08/19 Reason for consult: abdominal pain Requesting physician: Luna Dickson MD Narrative: Patient presents to the emergency depart complaining of weakness, poor appetite, mild diffuse abdominal pain. Patient reports symptoms over the last few days and seems to be progressively worsening. Patient has been able to tolerate a diet but poor appetite. Patient was seen in July with acute cholecystitis and treated conservatively at that time. Patient report no further right upper quadrant pain since that time. Patient does report some subjective fevers and chills at home. Review of Systems Constitutional: Constitutional: Reports chills, Reports fatigue, Reports lethargy and Reports weakness Eyes: Eyes: Reports no additional eye complaints ENT: Reports Normal hearing present and Denies dysphagia Cardiovascular: Cardiovascular: Denies chest pain and Denies palpitations Respiratory: Respiratory: Denies dyspnea Gastrointestinal: Gastrointestinal: Reports abdominal pain, Reports bloating, Denies constipation, Denies diarrhea, Reports nausea and Denies vomiting Genitourinary: Genitourinary: Denies dysuria Musculoskeletal: Musculoskeletal: Denies no additional musculoskeletal complaints Integumentary/Breasts: Skin/Breast: Denies system reviewed and no additional complaints, except as docu Neurologic: Denies system reviewed and no additional complaints, except as documented Psychiatric: Psychiatric: Denies no additional psychiatric complaints PMFSH Past Medical History Medical History Acute cholecystitis 07/2019 treated with antibiotic therapy Alcohol abuse Atrial fibrillation Not on long-term anticoagulation due to high has bled score. CHF (congestive heart failure) Mild systolic dysfunction noted on echocardiogram from 07/27/2019 45-50%, mild mitral valve regurgitation, mild aortic valve sclerosis and biatrial dilatation Chronic anemia COPD (chronic obstructive pulmonary disease) Essential hypertension GERD (gastroesophageal reflux disease) Histoplasmosis History of BPH History of TIAs Hyperlipidemia Vitamin D deficiency Surgical History Surgical History History of bilateral cataract extraction History of vasectomy Male circumcision Family History Family History Sibling Polio Father Lung cancer Mother Hypertension Social History Social History Social History: Patient drinks (3) 4 oz drinks of Tequila a day prior to his hospitalization in July. Currently he is drinking 2 margaritas a day with 1 shot of Tequila each. He has smoked 1.5 packs cigarettes per day for 55 years. Primary care physician: Dr. Jean-Claude Crawford Code
[2019-10-08 16:12] LABS: Lipase < 10 U/L (23-300)
--- NOTE | 2019-10-08 16:21 | PC.NURSE ---
PT DID RECEIVE 2700 ML OF NS PER ORDER
--- NOTE | 2019-10-08 16:22 | PC.NURSE ---
PT LEFT TO US
[2019-10-08 16:33] LABS: Reflex Lactic Acid Yes or No Add Lactic
--- NOTE | 2019-10-08 17:21 | PC.NURSE ---
consent in chart for central line placement dr liu to do line procedure
[2019-10-08] MEDS: NOREPINEPHRINE 8 MG/D5W 250 ML 8 MG/250 ML BAG 9.4 MG IV CONT (18:21)
[2019-10-08 19:34] LABS: Lactic Acid 1.3 mmol/L (0.7-2.1)
--- NOTE | 2019-10-08 19:39 | ADMGEN ---
This patient, Lloyd Redman, was admitted to Intensive Care Unit-9. Patient/family oriented to hospital policies and general routines including ID bracelet, bed and alarms, visiting hours, pain management, procedures, bathroom and other care routines, personal items, smoking policy, room service/diet, and visiting hours. Valuables list has been completed. Information on how to activate the Rapid Response Team has been discussed. Patient/Family are encouraged to report perceived risks to care and to ask questions if they do not understand what they are told or what they should do.
[2019-10-08] MEDS: SODIUM CHLORIDE 0.9% IV 1,000 ML 125 ML IV CONT (20:16)
--- NOTE | 2019-10-08 20:19 | PM.IMHP ---
H&P: HPI History of Present Illness Chief complaint: septic shock/Gallbladder abscess Narrative: Lloyd Redman is a 69 year old male who was discharged from here on 10/05/2019 the patient had AFib with RVR and was on a diltiazem drip at that time. Patient's home Coreg was resumed. There was no plans for any anticoagulation. As his bleed scores were high. Discharged from here on 08/06/2019 where the patient had acute cholecystitis and general surgery recommended that the patient was a poor surgical candidate at the time. That medical management was to treat the patient with antibiotics his symptoms improved at that time patient was on a course of ciprofloxacin and Flagyl at that time. Patient was eating normally at that time. The patient came in today to the emergency room for advice from his primary care doctor. He had some lower abdominal pain for at least 2 days. He denied any fever or chills no nausea no vomiting or any diarrhea. He had no chest pain shortness of breath or cough. He has not had any surgery for his cholecystitis back in July. Patient's white count was noted to be 14.5. Lactic was noted to be 2.8. The patient's blood pressure was low so central line was placed in the emergency room. The patient was started on vasopressors. Patient is septic. Abdominal pelvis CT was read as multiloculated abscesses 1 lobulation and the gallbladder fossa up to 10 cm and the other anterior to the left liver lobe up to 12 cm. Most likely abscess, assuming patient had cholecystectomy following CT scan in July. Moderate pericardial effusion. Small ascites. Mild ileus. Extensive colonic diverticulosis. The patient tells me that he did not have a cholecystectomy. Surgery has been consulted. Patient had a drain placed per Interventional Radiology. It looks like light brown to his thick white drainage in the drainage bag. The patient was given IV fluids in the emergency room and started on Flagyl and Levaquin. He was also started on Levophed. The scrub technician was also notified and agreed to consult on the patient. He is admitted to ICU for sepsis. Date of service 10/08/2019 Review of Systems Review of Systems: All systems reviewed & are unremarkable except as noted in HPI and below Constitutional: Constitutional: Reports as per HPI and Reports no additional constitutional complaints Eyes: Eyes: Reports as per HPI and Reports no additional eye complaints ENT: Reports system reviewed and no additional complaints, except as documented and Reports Normal hearing present Cardiovascular: Cardiovascular: Reports no additional cardiovascular complaints Respiratory: Respiratory: Reports no additional respiratory complaints and Reports no additional respiratory complaints Gastrointestinal: Gastrointestinal: Reports as per HPI and Reports no additional gastrointestinal complaints Musculoskeletal: Musculoskeletal: Reports no additional musculoskeletal complaints Integumentary/Breasts: Skin/Breast: Reports system reviewed and no additional complaints, except as docu and Reports as per HPI Neurologic: Reports system reviewed and no additional complaints, except as documented, Reports as per HPI and Reports Normal hearing present Psychiatric: Psychiatric: Reports no additional psychiatric complaints and Reports as per HPI Endocrine: Endocrine: Reports no additional endocrine complaints Hematologic/Lymphatic: Hematologic/Lymphatic: Reports no additional hematologic/lymphatic complaints Allergic/Immunologic: Allergic/Immunologic: Reports no additional allergic/immunologic complaints [facility] Past Medical History Medical History Acute cholecystitis 07/2019 treated with antibiotic therapy Alcohol abuse Atrial fibrillation Not on long-term anticoagulation due to high has bled score. CHF (congestive heart failure) Mild systolic dysfunction noted on echocardiogram from 07/27/2019 45-50%, mild [place]
[2019-10-08] MEDS: NOREPINEPHRINE 8 MG/D5W 250 ML 8 MG/250 ML BAG 18.8 MG IV CONT (21:06)
[2019-10-09] VITALS (46 sets, daily range): BP systolic 93–134; BP diastolic 57–95; PULSE 84–135; RESP 17–26; TEMP 36.4–37.2; O2SAT 92–100
[2019-10-09] MEDS: SODIUM CHLORIDE 0.9% IV 1,000 ML 125 ML IV CONT (04:01)
[2019-10-09] MEDS: metroNIDAZOLE 500 MG/ISO 100ML 500 MG/100 ML BAG 100 MG IVPB ×3 (04:02→20:51)
[2019-10-09 05:45] LABS: Basophils Percent Auto 0.1 % (0.2-1.2); Hematocrit 29.3 % (42.0-52.0); Hemoglobin 9.4 g/dL (14.0-18.0); Immature Granulocyte Absolute 0.09 K/mm3 (0.00-0.031); Immature Granulocyte Percent A 0.6 % (0-0.5); Lymphocytes Absolute Auto 1.16 K/mm3 (0.9-3.2); Mean Corpuscular HGB Conc 32.1 g/dl (32-36); Mean Corpuscular Hemoglobin 30.6 pg (26-34); Mean Corpuscular Volume 95.4 fl (80-100); Mean Platelet Volume 9.5 fl (7.4-10.4); Monocytes Absolute Auto 0.3 K/mm3 (0.1-0.6); Monocytes Percent Auto 2.1 % (2.6-8.5); Neutrophils Percent Auto 89.2 % (45.5-73.1); Platelet Count Result 267 k/mm3 (150-375); Red Blood Count 3.07 M/mm3 (4.6-6.20); Red Cell Distribution Width 14.4 % (11.5-14.5); White Blood Count 14.5 K/mm3 (4.5-10.0)
[2019-10-09 05:58] LABS: Lactic Acid 0.9 mmol/L (0.7-2.1)
[2019-10-09 06:02] LABS: Alanine Aminotransferase 12 U/L (4-50); Albumin Level 2.1 g/dL (3.5-5.1); Alkaline Phosphatase 103 U/L (38-126); Aspartate Amino Transferase 17 U/L (17-59); Bilirubin,Total 0.5 mg/dL (0.2-1.3); Blood Urea Nitrogen 19 mg/dL (9-20); Calcium 7.9 mg/dL (8.4-10.2); Carbon Dioxide 23 mmol/L (22-30); Chloride 103 mmol/L (98-107); Estimated CRCL calculation 89 ml/min; Estimated Glomerular Filt Rate > 60; Glucose 142 mg/dL (75-110); Magnesium 1.2 mg/dL (1.6-2.3); Potassium 3.7 mmol/L (3.4-5.0); Sodium 130 mmol/L (137-145)
[2019-10-09 06:06] LABS: Lipase < 10 U/L (23-300)
[2019-10-09] MEDS: NOREPINEPHRINE 8 MG/D5W 250 ML 8 MG/250 ML BAG 11.3 MG IV CONT (06:36)
--- NOTE | 2019-10-09 08:46 | WPDCNINT ---
Assessment and Plan Assessment and plan (1) Septic shock: Code(s): A41.9 - Sepsis, unspecified organism; R65.21 - Severe sepsis with septic shock Status: Acute Assessment and Plan: Likely source is abdominal process with gallbladder foci abscess as well as hepatic abscess. He is currently on Levophed. Wean Levophed if tolerated. Continue to monitor hemodynamics closely. Lactic acidosis has resolved. He currently does not have any respiratory issues. Continue antibiotics with levofloxacin and Flagyl. (2) Gallbladder abscess: Code(s): K81.0 - Acute cholecystitis Status: Acute Assessment and Plan: Monitor output from the cholecystostomy tube. Surgery service has been following him. Follow cultures. Continue antibiotics with levofloxacin and Flagyl. Deescalate antibiotics as per culture result. (3) Hepatic abscess: Code(s): K75.0 - Abscess of liver Status: Acute Assessment and Plan: Monitor output from cholecystotomy tube. (4) Essential hypertension: Code(s): I10 - Essential (primary) hypertension Status: Chronic Assessment and Plan: Currently carvedilol and diltiazem has been on hold. Hold terazosin as well. (5) COPD (chronic obstructive pulmonary disease): Code(s): J44.9 - Chronic obstructive pulmonary disease, unspecified Status: Acute Assessment and Plan: He does have wheezing bilaterally. Continue bronchodilator with albuterol. He is not symptomatic and feels that his symptoms of shortness of breath is at his baseline. Steroids if continued to get significant wheezing but will hold off for now because of his active ongoing infection. (6) Afib: Code(s): I48.91 - Unspecified atrial fibrillation Status: Acute Assessment and Plan: Currently in sinus rhythm. Diltiazem and Carvedilol has been on hold for now because of septic shock. Amiodarone if he goes into atrial fibrillation with rapid ventricular rate. He was not deemed a candidate for anticoagulation because of high bleed score. (7) Chronic alcohol use: Code(s): Z72.89 - Other problems related to lifestyle Status: Chronic Assessment and Plan: He admits daily drinking. Monitor him for any alcohol withdrawal signs. CIWA protocol will be instituted if he starts to exhibit any signs of alcohol withdrawal. He has history of significant alcohol withdrawal seen recently during 1 of his admission. Will start him on Librium for now. He starts to show signs of significant alcohol withdrawal then he will be started on CIWA protocol. Thiamine and folate. Magnesium has been repleted. Additional Plan DVT prophylaxis. Lovenox will be started. GI prophylaxis home omeprazole will be started. He may be started on clear liquid diet later today if clears by surgery service. Due to a high probability of clinically significant, life threatening deterioration, the patient required my highest level of preparedness to intervene emergently and I personally spent this critical care time directly and personally managing the patient. This critical care time included obtaining a history; examining the patient; pulse oximetry; ordering and review of studies; arranging urgent treatment with development of a management plan; evaluation of patient's response to treatment; frequent reassessment; and discussions with other providers. It was exclusive of separately billable procedures and treating other patients and teaching time. Please see Assessment and Plan section and the rest of the note for further information on patient assessment and treatment. Ingot [employer]pper Consult Note Consult date: 10/09/19 Time Seen: 11:27 HPI: Lloyd Redman is a 69 year old male with past medical history of atrial fibrillation, CHF, chronic anemia, COPD, hypertension, GERD, history of TIA, BPH and hyperlipidemia who was sent over to emergency department yesterday by his primary care physician for compla
[2019-10-09] MEDS: MAGNESIUM SULF 4 GM/WATER100ML 4 GM/100 ML BAG IVPB (09:00)
--- NOTE | 2019-10-09 09:12 | PM.PNGS ---
Progress Note: A&P Assessment and Plan (1) Gallbladder abscess: Code(s): K81.0 - Acute cholecystitis Status: Acute Assessment and Plan: continue management with IV antibiotics and percutaneous drainage, exam improved today status post drainage (2) Septic shock: Code(s): A41.9 - Sepsis, unspecified organism; R65.21 - Severe sepsis with septic shock Status: Acute Assessment and Plan: continue to wean pressors as tolerated, continue broad-spectrum antibiotics for now, cultures pending (3) COPD (chronic obstructive pulmonary disease): Code(s): J44.9 - Chronic obstructive pulmonary disease, unspecified Status: Acute Assessment and Plan: management per critical care team Subjective Subjective Date/Time Seen: 10/09/19 09:12 feels better this morning, reports less abdominal pain and pressure, would like something to drink Review of Systems Constitutional: Constitutional: Reports body ache(s), Reports chills, Reports fatigue, Reports lethargy and Reports weakness Cardiovascular: Cardiovascular: Denies chest pain Respiratory: Respiratory: Denies dyspnea Gastrointestinal: Gastrointestinal: Reports abdominal pain, Reports bloating, Denies nausea and Denies vomiting Exam Const: General: no acute distress Resp: Auscultation: diminished lung sounds Cardio: Rate: regular rate Rhythm: regular rhythm GI: Other: S, mod dist, mild TTP diffusely, RUQ drain c copious amount of purulent drainage Objective Data Vital Signs Vital Signs: Vital Signs - 24 hr 10/08/19 12:07 10/08/19 12:16 10/08/19 14:04 Temperature 36.9 C Pulse Rate 81 77 101 H Respiratory Rate 18 Blood Pressure 81/52 L 80/56 L Pulse Oximetry 97 10/08/19 14:05 10/08/19 14:26 10/08/19 15:03 Temperature Pulse Rate 90 88 92 Respiratory Rate 97 H 24 H Blood Pressure 91/54 L 91/54 L 110/68 Pulse Oximetry 98 10/08/19 15:45 10/08/19 16:15 10/08/19 16:30 Temperature Pulse Rate 80 84 78 Respiratory Rate 16 26 H 14 Blood Pressure 84/58 L 83/65 L 98/64 L Pulse Oximetry 98 98 97 10/08/19 17:05 10/08/19 17:20 10/08/19 18:20 Temperature Pulse Rate 86 78 97 Respiratory Rate 24 H 16 17 Blood Pressure 89/51 L 96/58 L 103/91 H Pulse Oximetry 97 99 98 10/08/19 18:21 10/08/19 19:07 10/08/19 20:00 Temperature 36.6 C Pulse Rate 95 88 85 Respiratory Rate 16 20 Blood Pressure 103/91 H 88/62 L 99/61 L Pulse Oximetry 97 97 10/08/19 20:01 10/08/19 20:15 10/08/19 20:16 Temperature Pulse Rate 87 90 84 Respiratory Rate 14 16 16 Blood Pressure 82/61 L 85/62 L Pulse Oximetry 97 97 99 10/08/19 20:30 10/08/19 20:31 10/08/19 20:45 Temperature Pulse Rate 92 83 92 Respiratory Rate 19 23 H 23 H Blood Pressure 81/63 L Pulse Oximetry 97 97 97 10/08/19 20:46 10/08/19 21:00 10/08/19 21:01 Temperature Pulse Rate 86 91 88 Respiratory Rate 21 H 21 H 19 Blood Pressure 80/58 L 91/69 L Pulse Oximetry 97 95 100 10/08/19 21:06 10/08/19 21:15 10/08/19 21:16 Temperature Pulse Rate 87 86 87 Respiratory Rate 25 H 26 H Blood Pressure 91/69 L 92/66 L Pulse Oximetry 96 97 10/08/19 21:30 10/08/19 21:31 10/08/19 21:45 Temperature Pulse Rate 90 83 91 Respiratory Rate 20 22 H 29 H Blood Pressure 87/66 L Pulse Oximetry 96 96 97 10/08/19 21:46 10/08/19 22:00 10/08/19 22:01 Temperature Pulse Rate 92 90 87 Respiratory Rate 22 H 27 H 27 H Blood Pressure 94/63 L 102/65 102/65 Pulse Oximetry 96 96 97 10/08/19 22:15 10/08/19 22:16 10/08/19 22:30 Temperature Pulse Rate 95 87 90 Respiratory Rate 26 H 30 H 26 H Blood Pressure 90/67 L 90/65 L Pulse Oximetry 97 96 93 10/08/19 22:45 10/08/19 23:00 10/08/19 23:15 Temperature Pulse Rate 90 89 92 Respiratory Rate 23 H 21 H 24 H Blood Pressure 86/62 L 85/63 L 95/67 L Pulse Oximetry 92 93 93 10/08/19 23:30 10/08/19 23:45 10/09/19 00:00 Temperature 36.8 C Pulse Rate 89 91
[2019-10-09] MEDS: MULTIVITAMINS THERAPEUTIC TAB (*BKC) 1 TABLET PO (10:42)
[2019-10-09] MEDS: FOLIC ACID 1 MG TABLET PO (10:42)
[2019-10-09] MEDS: PANTOPRAZOLE 40 MG TABLET PO (10:42)
[2019-10-09] MEDS: ASPIRIN 325 MG ENTERIC TABLET PO (10:42)
[2019-10-09] MEDS: PRAVASTATIN SODIUM 20 MG TABLET 40 MG PO (10:43)
[2019-10-09] MEDS: THIAMINE HCL 100 MG TABLET PO (10:43)
[2019-10-09] MEDS: chlordiazePOXIDE 25 MG CAPSULE PO ×3 (10:47→20:51)
[2019-10-09] MEDS: ENOXAPARIN 40 MG/0.4 ML SYRINGE SUB-Q (10:51)
[2019-10-09] MEDS: ALBUTEROL SULFATE NEB 2.5 MG/0.5 ML INH INHALATION ×2 (13:49→20:13)
[2019-10-09] MEDS: IPRATROPIUM BR 0.02% INH SOLN 0.5 MG/2.5 ML VIAL INHALATION ×2 (13:50→20:14)
--- NOTE | 2019-10-09 16:21 | PM.IMPN ---
Progress Note: A&P Assessment and Plan (1) COPD (chronic obstructive pulmonary disease): Code(s): J44.9 - Chronic obstructive pulmonary disease, unspecified Status: Acute (2) BPH (benign prostatic hyperplasia): Code(s): N40.0 - Benign prostatic hyperplasia without lower urinary tract symptoms Status: Acute Assessment and Plan: Terazosin on hold at this time. (3) Septic shock: Code(s): A41.9 - Sepsis, unspecified organism; R65.21 - Severe sepsis with septic shock Status: Acute Assessment and Plan: Patient had a central line placed in the emergency room. Levophed stopped bp is stable with fluids. (4) Gallbladder abscess: Code(s): K81.0 - Acute cholecystitis Status: Acute Assessment and Plan: A drain was placed per Interventional Radiology. And surgery has been consulted. Patient is on Levaquin and Flagyl. Continue with current iV abx (5) Acute UTI: Code(s): N39.0 - Urinary tract infection, site not specified Status: Acute Assessment and Plan: Urine cultures and blood cultures are pending. Patient is on Flagyl and Levaquin. (6) Sepsis: Code(s): A41.9 - Sepsis, unspecified organism Status: Acute Assessment and Plan: Pt is in ICU on vasopressors which have just been stopped, iv fluids and iv flagyl and iv levaquin (7) Afib: Code(s): I48.91 - Unspecified atrial fibrillation Status: Acute Assessment and Plan: Patient was not placed on any anticoagulation due to his bleed scores being high. Patient was on Coreg but he is NPO at this time. He was also on diltiazem. That is on hold as well patient is NPO at this time. His blood pressure is low at this time. (8) CHF (congestive heart failure): Qualifiers: Heart failure type: systolic Heart failure chronicity: chronic Qualified Code(s): I50.22 - Chronic systolic (congestive) heart failure Code(s): I50.9 - Heart failure, unspecified Status: Chronic Subjective Date/time seen: 10/09/19 16:21 Interval history: Юлия is a 69 year old male who was discharged from here on 10/05/2019 the patient had AFib with RVR and was on a diltiazem drip at that time. Patient's home Coreg was resumed. There was no plans for any anticoagulation. As his bleed scores were high. Discharged from here on 08/06/2019 where the patient had acute cholecystitis and general surgery recommended that the patient was a poor surgical candidate at the time. pT ADMIITED FOR SEPTIC SHOCK, UTi And acute cholecystitis. Seen by surgeon. Pt coming off levophed. Pts Bp is stable so far. Pt is in AF HR in the 140s Review of Systems Review of Systems: All systems reviewed & are unremarkable except as noted in HPI and below Exam Const: General: cooperative and healthy appearing; No in distress Nutritional Appearance: overweight Orientation/consciousness: oriented to person Cardio: Rate: tachycardic and other Other: HR in the 140s Irreg GI: Inspection: normal to inspection GI Palp: No abdominal tenderness, No Guarding due to palpation present (GI) and No Hepatomegaly present Auscultation: normal bowel sounds Neuro: General: oriented to person Objective Data Vital Signs Vital Signs: Vital Signs - 24 hr 10/08/19 16:30 10/08/19 17:05 10/08/19 17:20 Temperature Pulse Rate 78 86 78 Respiratory Rate 14 24 H 16 Blood Pressure 98/64 L 89/51 L 96/58 L Pulse Oximetry 97 97 99 10/08/19 18:20 10/08/19 18:21 10/08/19 19:07 Temperature Pulse Rate 97 95 88 Respiratory Rate 17 16 Blood Pressure 103/91 H 103/91 H 88/62 L Pulse Oximetry 98 97 10/08/19 20:00 10/08/19 20:01 10/08/19 20:15 Temperature 36.6 C Pulse Rate 85 87 90 Respiratory Rate 20 14 16 Blood Pressure 99/61 L 82/61 L Pulse Oximetry 97 97 97 10/08/19 20:16 10/08/19 20:30 10/08/19 20:31 Temperature Pulse Rate 84 92 83 Respiratory Rate 16 19 23 H Blood Pressure 85/6
[2019-10-09] MEDS: SODIUM CHLORIDE 0.9% IV 1,000 ML 75 ML IV CONT (16:24)
[2019-10-09] MEDS: AMIODARONE 150 MG/D5W 100 ML 150 MG/100 ML BAG 600 MG IV CONT (18:55)
[2019-10-09] MEDS: AMIODARONE 360 MG/D5W 200 ML 360 MG/200 ML BAG 33.3 MG IV CONT (18:55)
[2019-10-10] VITALS (29 sets, daily range): BP systolic 94–117; BP diastolic 59–87; PULSE 58–145; RESP 16–25; TEMP 35.8–37; O2SAT 92–100
[2019-10-10] MEDS: AMIODARONE 360 MG/D5W 200 ML 360 MG/200 ML BAG 16.7 MG IV CONT ×2 (00:51→13:05)
[2019-10-10] MEDS: IPRATROPIUM BR 0.02% INH SOLN 0.5 MG/2.5 ML VIAL INHALATION ×4 (01:53→19:52)
[2019-10-10] MEDS: ALBUTEROL SULFATE NEB 2.5 MG/0.5 ML INH INHALATION ×4 (01:53→19:53)
[2019-10-10] MEDS: SODIUM CHLORIDE 0.9% IV 1,000 ML 75 ML IV CONT ×2 (04:58→20:14)
[2019-10-10] MEDS: metroNIDAZOLE 500 MG/ISO 100ML 500 MG/100 ML BAG 100 MG IVPB (04:58)
[2019-10-10] MEDS: chlordiazePOXIDE 25 MG CAPSULE PO ×3 (04:59→22:00)
[2019-10-10 05:17] LABS: Hematocrit 29.1 % (42.0-52.0); Hemoglobin 9.4 g/dL (14.0-18.0); Mean Corpuscular HGB Conc 32.3 g/dl (32-36); Mean Platelet Volume 9.1 fl (7.4-10.4); Platelet Count Result 215 k/mm3 (150-375); Red Blood Count 3.03 M/mm3 (4.6-6.20); Red Cell Distribution Width 14.3 % (11.5-14.5); White Blood Count 11.6 K/mm3 (4.5-10.0)
[2019-10-10 05:28] LABS: Blood Urea Nitrogen 15 mg/dL (9-20); Calcium 8.1 mg/dL (8.4-10.2); Carbon Dioxide 25 mmol/L (22-30); Chloride 103 mmol/L (98-107); Estimated CRCL calculation 116 ml/min; Estimated Glomerular Filt Rate > 60; Glucose 96 mg/dL (75-110); Magnesium 1.9 mg/dL (1.6-2.3); Phosphorus 3.2 mg/dL (2.5-4.5); Potassium 3.5 mmol/L (3.4-5.0); Sodium 131 mmol/L (137-145)
--- NOTE | 2019-10-10 08:14 | WPDINTPN ---
Progress Note: A&P Assessment and Plan (1) Septic shock: Code(s): A41.9 - Sepsis, unspecified organism; R65.21 - Severe sepsis with septic shock Status: Acute Assessment and Plan: Likely source is abdominal process with gallbladder fossa abscess as well as hepatic abscess. He was weaned off from Levophed yesterday and remained normotensive since then. Did not require any pressor support with few of the blood pressure reading borderline normal. Continue to monitor hemodynamics closely. Lactic acidosis has resolved. He currently does not have any respiratory issues and just requiring 2 L of oxygen through nasal cannula with oxygen saturation remained within acceptable range. Continue antibiotics with levofloxacin and Flagyl. He may need ID consult considering recent ESBL E coli in urine. Gallbladder fluid organism has not been speciated yet. (2) Gallbladder abscess: Code(s): K81.0 - Acute cholecystitis Status: Acute Assessment and Plan: Monitor output from the cholecystostomy tube. Surgery service has been following him. Follow cultures. Urine with E coli with recent history of ESBL E coli. Continue antibiotics with levofloxacin and Flagyl. Deescalate antibiotics as per culture result. Pain control with Tylenol. (3) Hepatic abscess: Code(s): K75.0 - Abscess of liver Status: Acute Assessment and Plan: Monitor output from cholecystotomy tube. Continue antibiotics. (4) Essential hypertension: Code(s): I10 - Essential (primary) hypertension Status: Chronic Assessment and Plan: Currently carvedilol and diltiazem has been on hold. Hold terazosin as well. (5) COPD (chronic obstructive pulmonary disease): Code(s): J44.9 - Chronic obstructive pulmonary disease, unspecified Status: Acute Assessment and Plan: He did have significant wheezing yesterday which has improved today. Continue bronchodilator with duonebs. He is not symptomatic and feels that his symptoms of shortness of breath is at his baseline. Steroids if continued to get significant wheezing but will hold off for now because of his active ongoing infection. (6) Afib: Code(s): I48.91 - Unspecified atrial fibrillation Status: Acute Assessment and Plan: He started to have RVR with atrial fibrillation yesterday. He was started on amiodarone drip as Cardizem and carvedilol could not be started because of septic shock and him coming off pressors few hours ago before he started to have atrial fibrillation with RVR. Diltiazem and Carvedilol has been on hold for now because of septic shock. He was not deemed a candidate for anticoagulation because of high bleed score. (7) Chronic alcohol use: Code(s): Z72.89 - Other problems related to lifestyle Status: Chronic Assessment and Plan: He admits daily drinking. Monitor him for any alcohol withdrawal signs. CIWA protocol will be instituted if he starts to exhibit any signs of alcohol withdrawal. He has history of significant alcohol withdrawal seen recently during one of his admission. Continue Librium 25 mg 3 times a day and start tapering if he is doing well. He starts to show signs of significant alcohol withdrawal then he will be started on CIWA protocol. Thiamine and folate. Additional Plan DVT prophylaxis. Continue Lovenox GI prophylaxis home omeprazole Clear liquid diet as per surgery service. He will be downgraded to IMU status later today if he remains stable. Subjective Date/time seen: 10/10/19 08:14 He was weaned off from pressors yesterday in the afternoon. Blood pressure is borderline normal. Did not require any pressor support or IV fluid boluses since yesterday. He started to have rapid ventricular rate secondary to his baseline atrial fibrillation. His heart rate was in 130s and 140s. He was given a dose of Cardizem but that has been stopped since he came off pressors just yester
[2019-10-10] MEDS: PRAVASTATIN SODIUM 20 MG TABLET 40 MG PO (08:53)
[2019-10-10] MEDS: THIAMINE HCL 100 MG TABLET PO (08:53)
[2019-10-10] MEDS: ENOXAPARIN 40 MG/0.4 ML SYRINGE SUB-Q (08:53)
[2019-10-10] MEDS: FOLIC ACID 1 MG TABLET PO (08:53)
[2019-10-10] MEDS: PANTOPRAZOLE 40 MG TABLET PO (08:53)
[2019-10-10] MEDS: ASPIRIN 325 MG ENTERIC TABLET PO (08:54)
[2019-10-10] MEDS: FUROSEMIDE INJ 40 MG/4 ML VIAL 20 MG IV PUSH (08:55)
[2019-10-10 09:16] LABS: Hematocrit 30.3 % (42.0-52.0); Mean Corpuscular Hemoglobin 31.6 pg (26-34); Mean Corpuscular Volume 95.9 fl (80-100); Mean Platelet Volume 9.2 fl (7.4-10.4); Platelet Count Result 234 k/mm3 (150-375); Red Blood Count 3.16 M/mm3 (4.6-6.20); Red Cell Distribution Width 14.5 % (11.5-14.5); White Blood Count 12.9 K/mm3 (4.5-10.0)
[2019-10-10 09:38] LABS: Blood Urea Nitrogen 15 mg/dL (9-20); Calcium 8.2 mg/dL (8.4-10.2); Carbon Dioxide 26 mmol/L (22-30); Chloride 103 mmol/L (98-107); Estimated CRCL calculation 116 ml/min; Estimated Glomerular Filt Rate > 60; Glucose 95 mg/dL (75-110); Potassium 3.6 mmol/L (3.4-5.0); Sodium 133 mmol/L (137-145)
[2019-10-10] MEDS: ACETAMINOPHEN 325 MG TABLET 650 MG PO (12:18)
--- NOTE | 2019-10-10 12:19 | PM.PNGS ---
Progress Note: A&P Assessment and Plan (1) Gallbladder abscess: Code(s): K81.0 - Acute cholecystitis Status: Acute Assessment and Plan: Continue Abx per ID recommendations OK to advance diet slowly Monitor drain output (2) Septic shock: Code(s): A41.9 - Sepsis, unspecified organism; R65.21 - Severe sepsis with septic shock Status: Acute (3) COPD (chronic obstructive pulmonary disease): Code(s): J44.9 - Chronic obstructive pulmonary disease, unspecified Status: Acute Subjective Subjective Date/Time Seen: 10/10/19 12:19 Interval history: Patient alert and answering questions appropriately. Still having abdominal pain. No nausea/vomiting. Afebrile. Exam GI: Inspection: other (Pigtail drain with purulent output) GI Palp: Yes Tenderness to palpation present (GI) (upper abdomen) Objective Data Vital Signs Vital Signs: Vital Signs - 24 hr 10/09/19 12:21 10/09/19 13:45 10/09/19 13:54 Temperature Pulse Rate 130 H 119 H Respiratory Rate Blood Pressure 106/83 Pulse Oximetry 10/09/19 14:00 10/09/19 16:00 10/09/19 18:00 Temperature 36.6 C Pulse Rate 112 H 135 H 132 H Respiratory Rate 21 H 24 H 25 H Blood Pressure 104/72 134/95 H 125/82 Pulse Oximetry 100 97 97 10/09/19 18:55 10/09/19 19:06 10/09/19 20:00 Temperature 36.4 C L Pulse Rate 131 H 133 H 109 H Respiratory Rate 22 H Blood Pressure 125/82 125/82 94/71 L Pulse Oximetry 97 10/09/19 20:14 10/09/19 20:15 10/09/19 22:00 Temperature Pulse Rate 121 H 101 H Respiratory Rate 22 H 18 Blood Pressure 97/71 L Pulse Oximetry 96 97 10/10/19 00:00 10/10/19 00:51 10/10/19 01:53 Temperature 36.8 C Pulse Rate 115 H 117 H 122 H Respiratory Rate 24 H 18 Blood Pressure 111/80 111/80 Pulse Oximetry 94 10/10/19 02:00 10/10/19 02:01 10/10/19 04:00 Temperature 37.0 C Pulse Rate 118 H 122 H 118 H Respiratory Rate 23 H 21 H 25 H Blood Pressure 114/87 117/82 Pulse Oximetry 100 99 10/10/19 06:00 10/10/19 07:53 10/10/19 08:00 Temperature Pulse Rate 116 H 118 H 127 H Respiratory Rate 20 22 H Blood Pressure 114/77 Pulse Oximetry 97 10/10/19 08:01 10/10/19 08:05 10/10/19 08:10 Temperature 36.8 C Pulse Rate 114 H 117 H Respiratory Rate 25 H 22 H Blood Pressure 109/82 Pulse Oximetry 100 99 10/10/19 10:00 Temperature Pulse Rate 117 H Respiratory Rate Blood Pressure Pulse Oximetry Intake/Output Intake/Output: Intake & Output 10/07/19 10/08/19 10/09/19 10/10/19 23:59 23:59 23:59 23:59 Intake Total 3380 3449.0 1600 Output Total 50 850 650 Balance 3330 2599.0 950 Meds/Results Medications: Active Medications Generic Name Dose Route Start Last Admin Trade Name Freq PRN Reason Stop Dose Admin Acetaminophen 650 mg 10/10/19 11:24 10/10/19 12:18 Tylenol Tablet PO 650 mg Q6H PRN Administration Mild Pain (1-3) or Fever Albuterol 2.5 mg 10/09/19 11:43 Albuterol Sulf Neb 2.5mg/0.5ml INHALATION Q6HRT PRN Shortness Of Breath Albuterol 2.5 mg 10/09/19 14:00 10/10/19 07:52 Albuterol Sulf Neb 2.5mg/0.5ml INHALATION 2.5 mg Q6HRT MONET Administration Aspirin 325 mg 10/09/19 09:00 10/10/19 08:54 Aspirin Ec PO 325 mg DAILY MONET Administration Chlordiazepoxide HCl 25 mg 10/09/19 10:40 10/10/19 04:59 Librium Po PO 25 mg Q8HR MONET Administration Enoxaparin Sodium 40 mg 10/09/19 09:00 10/10/19 08:53 Lovenox SUB-Q 40 mg DAILY MONET Administration Folic Acid 1 mg 10/09/19 09:00 10/10/19 08:53 Folic Acid PO 1 mg DAILY MONET Administration Sodium Chloride 1,000 mls @ 75 mls/hr 10/08/19 17:00 10/10/19 04:58 Normal Saline Iv IV CONT 75 mls/hr .[id number] MONET Administration Amiodarone HCl/Dextrose 360 mg in 200 mls @ 16.667 mls/hr 10/10/19 00:36 10/10/19 00:51 Nexterone 360 Mg/D5w 200 Ml IV CONT 10/10/19 12:30 0.5 mg/min .Q12H MONET 16.7 m
--- NOTE | 2019-10-10 14:27 | PC.NURSE ---
This patient, Lloyd Redman, was received from ICU-09 on 10/10/19 at 1415. Personal belongings list checked and signed. Patient/family oriented to unit policies and routines
--- NOTE | 2019-10-10 14:30 | PM.IMPN ---
Progress Note: A&P Assessment and Plan (1) COPD (chronic obstructive pulmonary disease): Code(s): J44.9 - Chronic obstructive pulmonary disease, unspecified Status: Chronic (2) BPH (benign prostatic hyperplasia): Code(s): N40.0 - Benign prostatic hyperplasia without lower urinary tract symptoms Status: Chronic Assessment and Plan: Terazosin on hold at this time. (3) Septic shock: Code(s): A41.9 - Sepsis, unspecified organism; R65.21 - Severe sepsis with septic shock Status: Chronic Assessment and Plan: Patient had a central line placed in the emergency room. off levophed , continue iv fluids and iv ABX (4) Gallbladder abscess: Code(s): K81.0 - Acute cholecystitis Status: Acute Assessment and Plan: A drain was placed per Interventional Radiology. And surgery has been consulted. ecoli seen in his cultures. Patient is on impenem Add nitrofurantoin (5) Acute UTI: Code(s): N39.0 - Urinary tract infection, site not specified Status: Acute Assessment and Plan: Pt is found to have ESBL in his urine add nitrofurantoin for coverage and ecoli in his cultures. (6) Sepsis: Code(s): A41.9 - Sepsis, unspecified organism Status: Acute Assessment and Plan: Pt is on iv fluids and IV abx seen by DR Surgery team ABX changed (7) Afib: Code(s): I48.91 - Unspecified atrial fibrillation Status: Acute Assessment and Plan: pT had amiodarone drip last night for fast AF. Pt is still on a amio drip (8) CHF (congestive heart failure): Qualifiers: Heart failure chronicity: chronic Heart failure type: systolic Qualified Code(s): I50.22 - Chronic systolic (congestive) heart failure Code(s): I50.9 - Heart failure, unspecified Status: Chronic Assessment and Plan: pt is on coreg Subjective Date/time seen: 10/10/19 14:30 Interval history: Юлия is a 69 year old male who was discharged from here on 10/05/2019 the patient had AFib with RVR and was on a diltiazem drip at that time. Patient's home Coreg was resumed. There was no plans for any anticoagulation. As his bleed scores were high. Discharged from here on 08/06/2019 where the patient had acute cholecystitis and general surgery recommended that the patient was a poor surgical candidate at the time. pT ADMIITED FOR SEPTIC SHOCK, UTi And acute cholecystitis. Seen by surgeon. Pt transfered to IMU pt still on amio drip Review of Systems Review of Systems: All systems reviewed & are unremarkable except as noted in HPI and below Cardiovascular: Cardiovascular: Denies no additional cardiovascular complaints Respiratory: Respiratory: Denies no additional respiratory complaints Gastrointestinal: Comments: mild abdominal pains Exam Const: General: other (mild distress tired and weak ) Orientation/consciousness: oriented to person, oriented to place, oriented to time and patient oriented x3 Limitations: no limitations GI: Inspection: other (percutaneus drain mild TTP over RUQ) Skin: General skin exam: normal color Lesions: no lesions Rashes: no rashes Trauma: no lacerations or abrasions Wounds: no wounds Hair: normal Nails: normal Neuro: General: oriented to person, oriented to place, oriented to time, patient oriented x3 and Unable to assess gait Cranial nerves: Yes Equal, round and reactive pupils present and Yes Normal hearing present Cognition (Neuro): normal cognition Speech: normal speech Gait exam (Neuro): Unable to assess gait Sensory Exam: normal sensation Extrem: General: normal to inspection Right upper extremity: normal to inspection and shoulder/upper arm Left upper extremity: normal to inspection and shoulder/upper arm Right lower extremity: normal to inspection Left lower extremity: normal to inspection Psych: Appearance: grossly normal Mental Status: mental status grossly normal Speech and movement: Normal
--- NOTE | 2019-10-10 14:32 | PC.NURSE ---
This patient, Lolyd Redman, was transferred to [facility] on 10/10/19 at 1410. Personal belongings sent with patient. Belongings list checked. Report given to Amanda NOLASOC. Appropriate documentation sent with patient.
[2019-10-10] MEDS: NITROFURANTOIN MACROCRYSTALS 50 MG CAP PO ×2 (17:26→20:15)
[2019-10-10] MEDS: AMIODARONE 360 MG/D5W 200 ML 360 MG/200 ML BAG 33.3 MG IV CONT (22:01)
[2019-10-11] VITALS (27 sets, daily range): BP systolic 91–141; BP diastolic 76–89; PULSE 110–143; RESP 16–22; TEMP 35.7–36.4; O2SAT 92–96
[2019-10-11] MEDS: AMIODARONE 360 MG/D5W 200 ML 360 MG/200 ML BAG 33.3 MG IV CONT ×4 (00:01→19:25)
[2019-10-11] MEDS: IPRATROPIUM BR 0.02% INH SOLN 0.5 MG/2.5 ML VIAL INHALATION ×4 (01:11→19:58)
--- NOTE | 2019-10-11 01:15 | PCRCNOTE ---
ALBUTEROL HELD AT 0200 TX TIME DUE TO IRREGULAR AND HIGH HR 126-145 BPM. DISCUSSED WITH GAURAV GRIER.
[2019-10-11] MEDS: AMIODARONE 150 MG/D5W 100 ML 150 MG/100 ML BAG 600 MG IV CONT (01:51)
[2019-10-11] MEDS: CENTRAL LINE FLUSH 20 ML IV PUSH (03:58)
[2019-10-11 04:05] LABS: Hematocrit 32.1 % (42.0-52.0); Hemoglobin 10.5 g/dL (14.0-18.0); Mean Corpuscular HGB Conc 32.7 g/dl (32-36); Mean Corpuscular Hemoglobin 31.5 pg (26-34); Mean Corpuscular Volume 96.4 fl (80-100); Mean Platelet Volume 9.4 fl (7.4-10.4); Platelet Count Result 235 k/mm3 (150-375); Red Blood Count 3.33 M/mm3 (4.6-6.20); Red Cell Distribution Width 14.6 % (11.5-14.5); White Blood Count 12.7 K/mm3 (4.5-10.0)
[2019-10-11 04:17] LABS: Blood Urea Nitrogen 15 mg/dL (9-20); Calcium 8.1 mg/dL (8.4-10.2); Carbon Dioxide 25 mmol/L (22-30); Chloride 102 mmol/L (98-107); Estimated CRCL calculation 116 ml/min; Estimated Glomerular Filt Rate > 60; Glucose 121 mg/dL (75-110); Magnesium 1.8 mg/dL (1.6-2.3); Phosphorus 3.5 mg/dL (2.5-4.5); Potassium 3.3 mmol/L (3.4-5.0); Sodium 131 mmol/L (137-145)
[2019-10-11] MEDS: chlordiazePOXIDE 25 MG CAPSULE PO ×3 (06:10→21:16)
[2019-10-11] MEDS: CENTRAL LINE FLUSH 10 ML IV PUSH ×4 (06:11→21:16)
[2019-10-11] MEDS: ALBUTEROL SULFATE NEB 2.5 MG/0.5 ML INH INHALATION ×2 (07:46→14:47)
[2019-10-11] MEDS: MULTIVITAMINS THERAPEUTIC TAB (*BKC) 1 TABLET PO (08:55)
[2019-10-11] MEDS: ASPIRIN 325 MG ENTERIC TABLET PO (08:56)
[2019-10-11] MEDS: ENOXAPARIN 40 MG/0.4 ML SYRINGE SUB-Q (08:56)
[2019-10-11] MEDS: THIAMINE HCL 100 MG TABLET PO (08:56)
[2019-10-11] MEDS: NITROFURANTOIN MACROCRYSTALS 50 MG CAP PO ×4 (08:57→21:16)
[2019-10-11] MEDS: FOLIC ACID 1 MG TABLET PO (08:57)
[2019-10-11] MEDS: PANTOPRAZOLE 40 MG TABLET PO (08:57)
[2019-10-11] MEDS: PRAVASTATIN SODIUM 20 MG TABLET 40 MG PO (08:57)
[2019-10-11] MEDS: SODIUM CHLORIDE 0.9% IV 1,000 ML 75 ML IV CONT (10:45)
--- NOTE | 2019-10-11 13:29 | PC.NURSE ---
Patient unable to ambulate at this time r/t general weakness.
--- NOTE | 2019-10-11 15:56 | PM.PNGS ---
Progress Note: A&P Assessment and Plan (1) Gallbladder abscess: Code(s): K81.0 - Acute cholecystitis Status: Acute Assessment and Plan: Pigtail drain still putting out large amount of purulent drainage WBC slowly coming down Continue IV antibiotics (2) Septic shock: Code(s): A41.9 - Sepsis, unspecified organism; R65.21 - Severe sepsis with septic shock Status: Chronic Assessment and Plan: Patient still very tachycardic--? ongoing sepsis versus cardiac reasons Continue as per Hospitalist Subjective Subjective Date/Time Seen: 10/11/19 15:56 Patient still having some abdominal tenderness, but no significant complaints. Breathing appears somewhat labored and coarse. Exam GI: Inspection: other (Pigtail drain with large amount of purulent drainage) GI Palp: Yes Tenderness to palpation present (GI) (mild upper), No Guarding due to palpation present (GI) and No Rebound tenderness present Objective Data Vital Signs Vital Signs: Vital Signs - 24 hr 10/10/19 16:00 10/10/19 18:00 10/10/19 19:43 Temperature 36.4 C L 36.1 C L Pulse Rate 117 H 130 H 145 H Respiratory Rate 20 18 Blood Pressure 103/64 106/84 Pulse Oximetry 97 95 10/10/19 19:53 10/10/19 20:00 10/10/19 20:01 Temperature Pulse Rate 130 H 126 H 127 H Respiratory Rate 18 18 20 Blood Pressure Pulse Oximetry 95 95 10/10/19 22:00 10/10/19 22:01 10/10/19 23:28 Temperature 35.8 C L Pulse Rate 131 H 132 H 143 H Respiratory Rate 16 Blood Pressure 106/84 116/76 Pulse Oximetry 96 10/11/19 00:00 10/11/19 00:01 10/11/19 01:11 Temperature Pulse Rate 140 H 143 H 134 H Respiratory Rate 16 20 Blood Pressure 116/76 Pulse Oximetry 96 10/11/19 01:51 10/11/19 02:00 10/11/19 04:00 Temperature 36.4 C L Pulse Rate 130 H 122 H 127 H Respiratory Rate 18 Blood Pressure 116/76 112/85 Pulse Oximetry 94 10/11/19 05:38 10/11/19 06:18 10/11/19 07:26 Temperature 35.8 C L Pulse Rate 127 H 122 H 110 H Respiratory Rate 18 Blood Pressure 112/85 121/89 Pulse Oximetry 92 10/11/19 07:46 10/11/19 07:57 10/11/19 08:00 Temperature Pulse Rate 127 H 128 H 129 H Respiratory Rate 20 20 Blood Pressure Pulse Oximetry 10/11/19 10:00 10/11/19 12:00 10/11/19 13:19 Temperature 35.7 C L Pulse Rate 139 H 125 H 137 H Respiratory Rate 18 Blood Pressure 111/81 Pulse Oximetry 93 10/11/19 14:40 10/11/19 14:48 Temperature Pulse Rate 133 H 128 H Respiratory Rate 20 20 Blood Pressure Pulse Oximetry Intake/Output Intake/Output: Intake & Output 10/08/19 10/09/19 10/10/19 10/11/19 23:59 23:59 23:59 23:59 Intake Total 3380 3449.0 3600 2142 Output Total 50 850 970 260 Balance 3330 2599.0 2630 1882 Meds/Results Medications: Active Medications Generic Name Dose Route Start Last Admin Trade Name Freq PRN Reason Stop Dose Admin Acetaminophen 650 mg 10/10/19 11:24 10/10/19 12:18 Tylenol Tablet PO 650 mg Q6H PRN Administration Mild Pain (1-3) or Fever Hydrocodone Bitart/Acetaminophen 1 tab 10/11/19 08:39 10/11/19 15:12 [place] 5-325 Mg PO 1 tab Q6H PRN Administration Pain Rated 4-6 Albuterol 2.5 mg 10/09/19 11:43 Albuterol Sulf Neb 2.5mg/0.5ml INHALATION Q6HRT PRN Shortness Of Breath Albuterol 2.5 mg 10/09/19 14:00 10/11/19 14:47 Albuterol Sulf Neb 2.5mg/0.5ml INHALATION 2.5 mg Q6HRT MONET Administration Aspirin 325 mg 10/09/19 09:00 10/11/19 08:56 Aspirin Ec PO 325 mg DAILY MONET Administration Chlordiazepoxide HCl 25 mg 10/09/19 10:40 10/11/19 13:22 Librium Po PO 25 mg Q8HR MONET Administration Enoxaparin Sodium 40 mg 10/09/19 09:00 10/11/19 08:56 Lovenox SUB-Q 40 mg DAILY MONET Administration Folic Acid 1 mg 10/09/19 09:00 10/11/19 08:57 Folic Acid PO 1 mg DAILY MONET Administration Sodium Chloride 1,000 mls @ 60 mls/hr 10/08/19 17:00 10/11/19 10
--- NOTE | 2019-10-11 16:17 | PM.IMPN ---
Progress Note: A&P Assessment and Plan (1) COPD (chronic obstructive pulmonary disease): Code(s): J44.9 - Chronic obstructive pulmonary disease, unspecified Status: Chronic Assessment and Plan: restart breathing treatments (2) BPH (benign prostatic hyperplasia): Code(s): N40.0 - Benign prostatic hyperplasia without lower urinary tract symptoms Status: Chronic Assessment and Plan: Terazosin on hold at this time. (3) Septic shock: Code(s): A41.9 - Sepsis, unspecified organism; R65.21 - Severe sepsis with septic shock Status: Chronic Assessment and Plan: Continue iv fluids and iv impenem, cut back iv fluids (4) Gallbladder abscess: Code(s): K81.0 - Acute cholecystitis Status: Acute Assessment and Plan: A drain was placed per Interventional Radiology. And surgery has been consulted. ecoli seen in his cultures. Patient is on impenem Add nitrofurantoin (5) Acute UTI: Code(s): N39.0 - Urinary tract infection, site not specified Status: Acute Assessment and Plan: Pt is found to have ESBL in his urine add nitrofurantoin for coverage and ecoli in his cultures. (6) Sepsis: Code(s): A41.9 - Sepsis, unspecified organism Status: Acute Assessment and Plan: Pt is on iv fluids and IV abx seen by DR Surgery team ABX changed (7) Afib: Code(s): I48.91 - Unspecified atrial fibrillation Status: Acute Assessment and Plan: pT had amiodarone drip last night for fast AF. Pt is still on a amio drip (8) CHF (congestive heart failure): Qualifiers: Heart failure type: systolic Heart failure chronicity: chronic Qualified Code(s): I50.22 - Chronic systolic (congestive) heart failure Code(s): I50.9 - Heart failure, unspecified Status: Chronic Assessment and Plan: pt is on coreg Subjective Date/time seen: 10/11/19 16:17 Interval history: Юлия is a 69 year old male who was discharged from here on 10/05/2019 the patient had AFib with RVR and was on a diltiazem drip at that time. Patient's home Coreg was resumed. There was no plans for any anticoagulation. As his bleed scores were high. Discharged from here on 08/06/2019 where the patient had acute cholecystitis and general surgery recommended that the patient was a poor surgical candidate at the time. pT ADMIITED FOR SEPTIC SHOCK, UTi And acute cholecystitis. Seen by surgeon. Pt transfered to IMU pt still on amio drip Review of Systems Review of Systems: Narrative: tired weak All systems reviewed & are unremarkable except as noted in HPI and below Constitutional: Constitutional: Reports as per HPI and Reports no additional constitutional complaints Eyes: Eyes: Reports as per HPI and Reports no additional eye complaints Cardiovascular: Cardiovascular: Denies no additional cardiovascular complaints Respiratory: Respiratory: Denies no additional respiratory complaints and Reports no additional respiratory complaints Gastrointestinal: Gastrointestinal: Reports other (mild abdominal pains ) Exam Const: General: other (mild distress tired and weak, white thick layer in his right eye ) Nutritional Appearance: average body habitus, well nourished and overweight Orientation/consciousness: oriented to person, oriented to place, oriented to time and patient oriented x3 Limitations: no limitations Chest: Chest palpation & inspection: normal inspection of the chest Resp: Effort & Inspection: normal respiratory effort Auscultation: wheezes expiratory wheezes and upper bilaterally Percussion: percussion normal Cardio: Palpation: normal PMI Rate: regular rate, tachycardic and other Rhythm: regular rhythm Heart sounds: S1 normal heart sound present and S2 normal heart sound present Peripheral pulses: Peripheral pulses 2+ throughout Other: HR in the 140s Irreg GI: Inspection: other (percutaneus drain mild TTP over RUQ) Au
[2019-10-12] VITALS (31 sets, daily range): BP systolic 113–134; BP diastolic 76–99; PULSE 67–128; RESP 20–24; TEMP 35.9–36.6; O2SAT 90–98
[2019-10-12] MEDS: SODIUM CHLORIDE 0.9% IV 1,000 ML 60 ML IV CONT ×2 (00:18→16:30)
[2019-10-12] MEDS: AMIODARONE 360 MG/D5W 200 ML 360 MG/200 ML BAG 33.3 MG IV CONT ×3 (01:02→12:01)
[2019-10-12] MEDS: IPRATROPIUM BR 0.02% INH SOLN 0.5 MG/2.5 ML VIAL INHALATION ×4 (01:17→19:45)
[2019-10-12] MEDS: chlordiazePOXIDE 25 MG CAPSULE PO ×3 (05:19→22:37)
[2019-10-12 05:42] LABS: Hematocrit 32.1 % (42.0-52.0); Hemoglobin 10.5 g/dL (14.0-18.0); Mean Corpuscular HGB Conc 32.7 g/dl (32-36); Mean Corpuscular Hemoglobin 31.4 pg (26-34); Mean Corpuscular Volume 96.1 fl (80-100); Platelet Count Result 231 k/mm3 (150-375); Red Blood Count 3.34 M/mm3 (4.6-6.20); Red Cell Distribution Width 14.6 % (11.5-14.5); White Blood Count 11.5 K/mm3 (4.5-10.0)
[2019-10-12 05:49] LABS: Blood Urea Nitrogen 12 mg/dL (9-20); Carbon Dioxide 26 mmol/L (22-30); Chloride 101 mmol/L (98-107); Estimated CRCL calculation 124 ml/min; Estimated Glomerular Filt Rate > 60; Glucose 111 mg/dL (75-110); Magnesium 1.7 mg/dL (1.6-2.3); Phosphorus 3.2 mg/dL (2.5-4.5); Potassium 3.3 mmol/L (3.4-5.0); Sodium 131 mmol/L (137-145)
[2019-10-12] MEDS: CENTRAL LINE FLUSH 10 ML IV PUSH ×3 (06:58→16:30)
[2019-10-12] MEDS: MULTIVITAMINS THERAPEUTIC TAB (*BKC) 1 TABLET PO (08:47)
[2019-10-12] MEDS: FOLIC ACID 1 MG TABLET PO (08:47)
[2019-10-12] MEDS: ASPIRIN 325 MG ENTERIC TABLET PO (08:47)
[2019-10-12] MEDS: ENOXAPARIN 40 MG/0.4 ML SYRINGE SUB-Q (08:47)
[2019-10-12] MEDS: NITROFURANTOIN MACROCRYSTALS 50 MG CAP PO ×4 (08:47→22:36)
[2019-10-12] MEDS: PRAVASTATIN SODIUM 20 MG TABLET 40 MG PO (08:48)
[2019-10-12] MEDS: PANTOPRAZOLE 40 MG TABLET PO (08:48)
[2019-10-12] MEDS: THIAMINE HCL 100 MG TABLET PO (08:48)
--- NOTE | 2019-10-12 09:17 | WPDINFPN2 ---
Progress Note: A&P Assessment and Plan (1) Gallbladder abscess: Code(s): K81.0 - Acute cholecystitis Status: Acute Assessment and Plan: Acute cholecystitis with abscess, MDRO REC Imipenem # 3, continue Subjective Date/time seen: 10/12/19 09:17 Objective Data Vital Signs Vital Signs: Vital Signs - 24 hr 10/11/19 10:00 10/11/19 12:00 10/11/19 13:19 Temperature 35.7 C L Pulse Rate 139 H 125 H 137 H Respiratory Rate 18 Blood Pressure 111/81 Pulse Oximetry 93 10/11/19 14:00 10/11/19 14:40 10/11/19 14:48 Temperature Pulse Rate 130 H 133 H 128 H Respiratory Rate 20 20 Blood Pressure Pulse Oximetry 10/11/19 16:00 10/11/19 18:00 10/11/19 19:25 Temperature 35.8 C L Pulse Rate 122 H 132 H 135 H Respiratory Rate 18 Blood Pressure 111/78 Pulse Oximetry 93 10/11/19 19:48 10/11/19 19:58 10/11/19 20:00 Temperature 35.7 C L Pulse Rate 128 H 136 H 124 H Respiratory Rate 18 22 H 20 Blood Pressure 91/76 L Pulse Oximetry 94 94 10/11/19 20:07 10/11/19 22:00 10/11/19 23:38 Temperature 36.4 C Pulse Rate 128 H 121 H 117 H Respiratory Rate 20 20 Blood Pressure 141/81 H Pulse Oximetry 95 10/12/19 00:00 10/12/19 01:02 10/12/19 01:18 Temperature Pulse Rate 124 H 124 H 113 H Respiratory Rate 20 20 Blood Pressure Pulse Oximetry 95 10/12/19 01:26 10/12/19 02:00 10/12/19 03:56 Temperature 36.6 C Pulse Rate 124 H 112 H 117 H Respiratory Rate 20 22 H Blood Pressure 114/82 Pulse Oximetry 96 10/12/19 04:00 10/12/19 05:39 10/12/19 06:57 Temperature Pulse Rate 116 H 120 H 120 H Respiratory Rate 22 H Blood Pressure Pulse Oximetry 96 10/12/19 07:08 10/12/19 08:08 10/12/19 08:16 Temperature 36.2 C L Pulse Rate 124 H 110 H 112 H Respiratory Rate 20 20 20 Blood Pressure 113/81 Pulse Oximetry 92 Intake/Output Intake/Output: Intake & Output 10/09/19 10/10/19 10/11/19 10/12/19 23:59 23:59 23:59 23:59 Intake Total 3449.0 3600 3542 500 Output Total 850 970 510 Balance 2599.0 2630 3032 500 Meds/Results Medications: Active Medications Generic Name Dose Route Start Last Admin Trade Name Freq PRN Reason Stop Dose Admin Acetaminophen 650 mg 10/10/19 11:24 10/10/19 12:18 Tylenol Tablet PO 650 mg Q6H PRN Administration Mild Pain (1-3) or Fever Hydrocodone Bitart/Acetaminophen 1 tab 10/11/19 08:39 10/12/19 05:19 [place] 5-325 Mg PO 1 tab Q6H PRN Administration Pain Rated 4-6 Albuterol 2.5 mg 10/09/19 11:43 Albuterol Sulf Neb 2.5mg/0.5ml INHALATION Q6HRT PRN Shortness Of Breath Aspirin 325 mg 10/09/19 09:00 10/12/19 08:47 Aspirin Ec PO 325 mg DAILY MONET Administration Chlordiazepoxide HCl 25 mg 10/09/19 10:40 10/12/19 05:19 Librium Po PO 25 mg Q8HR MONET Administration Enoxaparin Sodium 40 mg 10/09/19 09:00 10/12/19 08:47 Lovenox SUB-Q 40 mg DAILY MONET Administration Folic Acid 1 mg 10/09/19 09:00 10/12/19 08:47 Folic Acid PO 1 mg DAILY MONET Administration Sodium Chloride 1,000 mls @ 60 mls/hr 10/08/19 17:00 10/12/19 00:18 Normal Saline Iv IV CONT 60 mls/hr .[id number] MONET Administration Imipenem/Cilastatin Sodium 500 mg in 100 mls @ 300 mls/hr 10/10/19 13:00 10/12/19 05:39 Primaxin 500 Mg/D5w 100 Ml IVPB Infused Q6HR MONET Infusion Amiodarone HCl/Dextrose 360 mg in 200 mls @ 33.333 mls/hr 10/10/19 21:36 10/12/19 06:57 Nexterone 360 Mg/D5w 200 Ml IV CONT 1 mg/min .Q6H [place] 33.3 mls/hr Administration 1 MG/MIN Ipratropium [place] 0.5 mg 10/09/19 14:00 10/12/19 08:15 Atrovent Neb INHALATION 0.5 mg Q6HRT MONET Administration Ipratropium [place] 0.5 mg 10/09/19 11:45 Atrovent Neb INHALATION Q6HRT PRN Shortness Of Breath Levalbuterol HCl 2 puff 10/08/19 20:35 Xopenex Hfa INHALATION Q6HRT PRN Shortness Of Breath Levalbuterol HCl 1.
[2019-10-12] MEDS: TIMOLOL MALEATE 0.5% OP SOLN 5 ML BTL 1 DROP EACH EYE ×2 (12:24→22:36)
--- NOTE | 2019-10-12 14:39 | PM.PNGS ---
Progress Note: A&P Assessment and Plan (1) Gallbladder abscess: Code(s): K81.0 - Acute cholecystitis Status: Acute Assessment and Plan: Pigtail drain still putting out large amount of purulent drainage. Continue to monitor on suction. Will need to repeat a CT scan possibly tomorrow to reassess the abscess. WBC continues to slowly trend down. Continue IV antibiotics. Will start Miralax today and see if his oral intake improves with improved bowel function. He does have the potential to develop an ileus. Continue to monitor closely. (2) Septic shock: Code(s): A41.9 - Sepsis, unspecified organism; R65.21 - Severe sepsis with septic shock Status: Chronic Assessment and Plan: Related to #1 above. Blood cultures NGTD. Abscess culture grew E. coli (ESBL) sensitive to Imepenem. Urine culture grew E. coli (ESBL). Still having issues with significant tachycardia on Amiodarone drip. Management per Hospitalist. Cardiology has been consulted today. Continue IV antibiotics per ID recommendations. Additional Plan Discussed the plan of care with Dr. Gonzales. Subjective Subjective Date/Time Seen: 10/12/19 14:39 Patient reports: no new complaints, flatus and no bowel movement Interval history: Patient sleeping upon entering the room. He denies abdominal pain, nausea, or vomiting. Reports feeling bloated and cannot recall if he has had a bowel movement since admission. No reported BMs and per the nurse, she does not see any reported BMs since admission. Nurse reports patient is not eating or drinking well. Patient states he has no appetite and has only eaten very little. No other complaints at this time. Percutaneous drain with 150 cc out recorded yesterday. About 100 cc in drainage bag today. Review of Systems Review of Systems: All systems reviewed & are unremarkable except as noted in HPI and below Constitutional: Constitutional: Reports no additional constitutional complaints, Denies chills, Denies fatigue, Denies fever(s) and Reports weakness (generalized) Cardiovascular: Cardiovascular: Reports no additional cardiovascular complaints, Denies chest pain and Denies leg edema Respiratory: Respiratory: Reports no additional respiratory complaints, Denies cough and Denies dyspnea Gastrointestinal: Gastrointestinal: Reports as per HPI and Reports no additional gastrointestinal complaints Exam Const: General: comfortable, no acute distress and tired appearing (sleeping when entering the room) GI: Inspection: distended and other (Pigtail drain with large amount of purulent drainage) GI Palp: Yes Soft to palpation, Yes Tenderness to palpation present (GI) (diffusely tender, worse in RUQ near perc. drain), No Guarding due to palpation present (GI) and No Rebound tenderness present Auscultation: Hypoactive bowel sounds present Skin: General skin exam: pallor Rashes: no rashes Extrem: General: normal to inspection and no clubbing, cyanosis or edema Psych: Mental Status: mental status grossly normal Attitude: cooperative Insight: Fair insight present (Psych) Judgement: Fair judgement present (Psych) Objective Data Vital Signs Vital Signs: Vital Signs - 24 hr 10/11/19 14:40 10/11/19 14:48 10/11/19 16:00 Temperature 96.4 F L Pulse Rate 133 H 128 H 122 H Respiratory Rate 20 20 18 Blood Pressure 111/78 Pulse Oximetry 93 10/11/19 18:00 10/11/19 19:25 10/11/19 19:48 Temperature 96.3 F L Pulse Rate 132 H 135 H 128 H Respiratory Rate 18 Blood Pressure 91/76 L Pulse Oximetry 94 10/11/19 19:58 10/11/19 20:00 10/11/19 20:07 Temperature Pulse Rate 136 H 124 H 128 H Respiratory Rate 22 H 20 20 Blood Pressure Pulse Oximetry 94 10/11/19 22:00 10/11/19 23:38 10/12/19 00:00 Temperature 97.6 F Pulse Rate 121 H 117 H 124 H Respiratory Rate 20 20 Blood Pressure 141/81 H Pulse Oximetry 95 95 10/12/19 01:02 10/12/19 01:18 10/12/19 01:26 Temperature Pulse Rate
--- NOTE | 2019-10-12 15:59 | PM.CNCAR ---
Assessment and Plan Additional Plan This is a 69-year-old man with a history of atrial fibrillation of not entirely known chronicity but present since at least July of this year when we saw him in consultation the 1st time. He was previously treated with a regimen of diltiazem at a high dosage along with some carvedilol for rate control. Once again he was not anticoagulated because of alcoholism. He is now in the hospital with abdominal pain he has a chronic maturing abdominal abscess surrounding his gallbladder. Presumably the plan is at some point to definitively operate on this but I do not know that from reading the chart. The cardiac issue is that we are being asked again to participate with rate control for this man. Since he is tolerating his oral medicines I am going to start by replacing his IV amiodarone with some oral diltiazem. He was on a very high dose of this previously we may have to raise the dose but I am going to start at 240 mg daily. Previously rate control for this man has been challenging but it was reasonable with the above-described regimen. It seems that his prognosis without definitive surgery for his abdominal abscess is guarded at best Donavan Monahan MD [facility] History of Present Illness History of Present Illness Consult date/time: 10/12/19 15:59 Consult reason: atrial fibrillation Reason For Visit: septic shock/Gallbladder abscess Narrative: This is an unfortunate 69-year-old man who I am seeing at the request of the hospitalist's today to assist with management of rate control of atrial fibrillation which has been chronic and persistent for at least several months. The patient was seen in consultation by myself in July of this year when he was hospitalized with abdominal pain and found to have acute cholecystitis. Serum tip of this lead he was found to have atrial fibrillation at that time of unknown chronicity. He was managed with rate control with IV followed by oral diltiazem as well as some oral carvedilol. His evaluation showed very mild left ventricular systolic dysfunction evidence of biatrial enlargement. He was not systemically anticoagulated because he has an actively drinking alcoholic. The patient was of course seen by the Surgical Service. Plans initially I thought were for him to undergo a cholecystectomy but that has not occurred he had a cholecystostomy drainage tube put in. Since then it looks like he has been in the hospital 2 or 3 other times with abdominal pain he has a abdominal abscess that surrounding the gallbladder that is being drained percutaneously. Presumably he is not felt to be a candidate for surgical treatment of this for reasons that I do not see spelled out in the chart. Cardiac whitten he had increased ventricular rate last week and Saturday. He has been in the hospital this time for about 5 or 6 days. On Saturday evening he was placed on intravenous amiodarone for heart rate control. The nursing staff indicate that he is not having difficulty tolerating his diet or taking oral medications. Dr. jett the infectious disease inside solar sales consultant is assisting with managing and directing the patient's antibiotic regimen for all of this. In this setting we are asked to see him today in consultation. When I came in the room to see him he was resting, sleeping flat in bed upon awakening he is lethargic but responds to questions appropriately and denies any other symptoms other than mild right-sided abdominal pain. He looks like his home oral diltiazem regimen included a total daily dosage of 480 mg. He had that along with carvedilol and a 37.5 mg q.12 hours dosage. Once again he is currently receiving none of these medications but is on intravenous amiodarone. Review of Systems Review of Systems: ROS unobtainable: Yes unobtainable due to medical condition [facility] Past Medical History Medical History (Updated 10/10/19 @ 14:32 by Christa Tesfaye MD) Acute cholecystitis 07/2019 treated wit
[2019-10-12] MEDS: dilTIAZem HCL 60 MG TABLET PO ×2 (16:29→23:25)
--- NOTE | 2019-10-12 17:41 | PM.IMPN ---
Progress Note: A&P Assessment and Plan (1) Gallbladder abscess: Code(s): K81.0 - Acute cholecystitis Status: Acute Assessment and Plan: A drain was placed per Interventional Radiology. And surgery has been consulted. ecoli seen in his cultures. Patient is on impenem Add nitrofurantoin 10/12/19 17:41 Patient is 69-year-old male with long history of alcohol abuse he presented emergency department with abdominal pain his found to have abscess along his gallbladder patient was seen by general surgery patient is not a candidate surgical intervention at the present time and interventional radiologist placed a drain which is draining bile and what appears to be poor on discharge, the abscess culture is growing E coli sensitive to imipenem similarly urine culture is growing E coli with ESBL sensitive to imipenem, is seen by Dr. jett continue to imipenem, patient also has a history of atrial fibrillation now in RVR was started on Amio drip seen by focuser and switch him over to oral diltiazem rate is trending down, patient complains of abdominal pain denies any fever or chills. (2) COPD (chronic obstructive pulmonary disease): Code(s): J44.9 - Chronic obstructive pulmonary disease, unspecified Status: Chronic Assessment and Plan: restart breathing treatments (3) BPH (benign prostatic hyperplasia): Code(s): N40.0 - Benign prostatic hyperplasia without lower urinary tract symptoms Status: Chronic Assessment and Plan: Terazosin on hold at this time. (4) Septic shock: Code(s): A41.9 - Sepsis, unspecified organism; R65.21 - Severe sepsis with septic shock Status: Chronic Assessment and Plan: Continue iv fluids and iv impenem, cut back iv fluids (5) Acute UTI: Code(s): N39.0 - Urinary tract infection, site not specified Status: Acute Assessment and Plan: Pt is found to have ESBL in his urine add nitrofurantoin for coverage and ecoli in his cultures. (6) Sepsis: Code(s): A41.9 - Sepsis, unspecified organism Status: Acute Assessment and Plan: Pt is on iv fluids and IV abx seen by DR Surgery team ABX changed (7) Afib: Code(s): I48.91 - Unspecified atrial fibrillation Status: Acute Assessment and Plan: pT had amiodarone drip last night for fast AF. Plan is above (8) CHF (congestive heart failure): Qualifiers: Heart failure type: systolic Heart failure chronicity: chronic Qualified Code(s): I50.22 - Chronic systolic (congestive) heart failure Code(s): I50.9 - Heart failure, unspecified Status: Chronic Assessment and Plan: pt is on coreg Time Spent With Patient Time with patient: 15 - 25 minutes Subjective Date/time seen: 10/12/19 17:41 Patient is 69-year-old male with long history of alcohol abuse he presented emergency department with abdominal pain his found to have abscess along his gallbladder patient was seen by general surgery patient is not a candidate surgical intervention at the present time and interventional radiologist placed a drain which is draining bile and what appears to be poor on discharge, the abscess culture is growing E coli sensitive to imipenem similarly urine culture is growing E coli with ESBL sensitive to imipenem, is seen by Dr. jett continue to imipenem, patient also has a history of atrial fibrillation now in RVR was started on Amio drip seen by focuser and switch him over to oral diltiazem rate is trending down, patient complains of abdominal pain denies any fever or chills. Review of Systems Review of Systems: All systems reviewed & are unremarkable except as noted in HPI and below Exam Narrative: Exam Narrative: Patient appears chronically ill older than his age Const: General: no acute distress and uncomfortable HENMT: General nose exam: Normal nares present Eyes: General: appearance normal, both eyes and all rel
[2019-10-13] VITALS (27 sets, daily range): BP systolic 101–131; BP diastolic 69–85; PULSE 101–132; RESP 20–24; TEMP 35.9–36.6; O2SAT 90–98; BMI 10.0
[2019-10-13] MEDS: IPRATROPIUM BR 0.02% INH SOLN 0.5 MG/2.5 ML VIAL INHALATION ×4 (01:56→20:54)
[2019-10-13] MEDS: chlordiazePOXIDE 25 MG CAPSULE PO ×2 (05:24→13:25)
[2019-10-13] MEDS: dilTIAZem HCL 60 MG TABLET PO ×4 (05:24→23:31)
[2019-10-13] MEDS: CENTRAL LINE FLUSH 10 ML IV PUSH ×4 (05:24→22:16)
[2019-10-13 05:43] LABS: Hematocrit 33.1 % (42.0-52.0); Mean Corpuscular HGB Conc 33.2 g/dl (32-36); Mean Corpuscular Hemoglobin 31.3 pg (26-34); Mean Corpuscular Volume 94.3 fl (80-100); Mean Platelet Volume 9.1 fl (7.4-10.4); Platelet Count Result 237 k/mm3 (150-375); Red Blood Count 3.51 M/mm3 (4.6-6.20); Red Cell Distribution Width 14.6 % (11.5-14.5); White Blood Count 12.9 K/mm3 (4.5-10.0)
[2019-10-13 06:04] LABS: Blood Urea Nitrogen 9 mg/dL (9-20); Calcium 8.2 mg/dL (8.4-10.2); Carbon Dioxide 25 mmol/L (22-30); Chloride 100 mmol/L (98-107); Estimated CRCL calculation 128 ml/min; Estimated Glomerular Filt Rate > 60; Glucose 97 mg/dL (75-110); Magnesium 1.6 mg/dL (1.6-2.3); Phosphorus 3.5 mg/dL (2.5-4.5); Potassium 3.4 mmol/L (3.4-5.0); Sodium 129 mmol/L (137-145)
--- NOTE | 2019-10-13 06:10 | CONS_ITS ---
DATE OF CONSULTATION: 10/12/2019 REASON FOR CONSULTATION: Gallbladder abscess. HISTORY OF PRESENT ILLNESS: The patient is a 69-year-old male who was here in July with acute cholecystitis, nonoperative treatment was undertaken. I cannot tell if he received a followup surgical appointment. He was readmitted to the hospital on October 07 with generalized weakness and abdominal pain. His CT of the abdomen revealed 2 fluid collections in the right upper quadrant surrounding the gallbladder. He was taken to the radiology suite accordingly and had percutaneous drainage on October 07. There is a communication between the two fluid collections. The catheter evacuated 60 cc of purulent fluid. The patient denies any ongoing abdominal pain, fever, chills, or sweats. No previous antibiotics. Initially was on ciprofloxacin and metronidazole and is now on day 3 of imipenem instead. ALLERGIES: PENICILLIN CAUSES HIVES. PRESENT MEDICATIONS: No immunosuppressants. HABITS: He continues to smoke unfortunately [id number] packs per day and social drinker though formerly alcohol to excess. PAST MEDICAL HISTORY: AF, BPH, chronic anemia, COPD, hypertension, GERD, previous histoplasmosis, BPH, TIAs, hyperlipidemia, vitamin D deficiency, vasectomy and cataract extractions. REVIEW OF SYSTEMS: Limited by the patient's memory. A 14-point review is negative. FAMILY HISTORY: Polio, lung cancer, hypertension. SOCIAL HISTORY: He is , lives locally, and retired. PHYSICAL EXAMINATION: GENERAL: This is an elderly male who appears actual age. No acute distress. VITAL SIGNS: Temperature on arrival was normal and he has had some mild hypothermia since then. No fevers. 112, 20, 113/81, 92%. SKIN: Warm and dry. No rashes. NODES: No cervical adenopathy. EENT: The conjunctivae are clear. He has poor dentition. The oral mucosa is normal. NECK: No masses, thyromegaly, stridor, or meningismus. LUNGS: Diffuse rales and rhonchi. Clear to percussion. Breath sounds are vesicular. CARDIAC: Tachycardic, irregular. Soft, S1, S2. No heaves. PMI is not displaced. Pulses 1+. ABDOMEN: Tender in the mid abdomen, right lower quadrant and right upper quadrant. No guarding. Bowel sounds are rare. Normal pitch. He has no tympany. He has a percutaneous drain fixed in the right upper quadrant, draining brown fluid into the bag currently. Since this was placed, between 15 and 150 cc per shift. EXTREMITIES: 2+ pitting edema in the ankles and feet. None in the hands. He has no venous varicosities. LABORATORY DATA: Fluid culture with ESBL producing E. coli, imipenem TING less than equal 0.25. Urine culture with similar organism. Blood cultures from October 07 on admission, no growth final. White count on arrival 14.5 and today 11.5, hemoglobin 10.5, platelets are 231. Differential shows a moderate left shift. Prothrombin time 16.0. He has hyponatremia 131, low potassium 3.3, glucose 111. Hemoglobin A1c from July was normal. His albumin 2.1, otherwise liver function tests normal. His urinalysis, multiple abnormalities, which are reviewed. RADIOLOGY: Chest x-ray, left mid and lower lung field airspace disease. Abdomen and pelvic CT showed multiloculated abscess suspected in the gallbladder fossa and anterior to the left lobe of the liver. Moderate pericardial effusion. Small amount of ascites, ileus, diverticulosis. ASSESSMENT: 1. Abscess of the gallbladder fossa multiloculated. He may have a gallbladder rupture, although his clinical course does not suggest perforation. More likely, he has chronic cholecystitis resulting in chronic infection of the gallbladder wall resulting in his present illness. Other causes of his leukocytosis and other causes of his abdominal p
[2019-10-13] MEDS: ASPIRIN 325 MG ENTERIC TABLET PO (08:18)
[2019-10-13] MEDS: MULTIVITAMINS THERAPEUTIC TAB (*BKC) 1 TABLET PO (08:18)
[2019-10-13] MEDS: FOLIC ACID 1 MG TABLET PO (08:18)
[2019-10-13] MEDS: ENOXAPARIN 40 MG/0.4 ML SYRINGE SUB-Q (08:18)
[2019-10-13] MEDS: PANTOPRAZOLE 40 MG TABLET PO (08:19)
[2019-10-13] MEDS: NITROFURANTOIN MACROCRYSTALS 50 MG CAP PO ×4 (08:19→20:08)
[2019-10-13] MEDS: PRAVASTATIN SODIUM 20 MG TABLET 40 MG PO (08:19)
[2019-10-13] MEDS: TIMOLOL MALEATE 0.5% OP SOLN 5 ML BTL 1 DROP EACH EYE ×2 (08:20→20:08)
[2019-10-13] MEDS: THIAMINE HCL 100 MG TABLET PO (08:20)
[2019-10-13] MEDS: SODIUM CHLORIDE 0.9% IV 1,000 ML 60 ML IV CONT (10:15)
--- NOTE | 2019-10-13 11:19 | PM.PNGS ---
Progress Note: A&P Assessment and Plan (1) Gallbladder abscess: Code(s): K81.0 - Acute cholecystitis Status: Acute Assessment and Plan: cont drain, abx, will reevaluate c CT today (2) Septic shock: Code(s): A41.9 - Sepsis, unspecified organism; R65.21 - Severe sepsis with septic shock Status: Chronic Assessment and Plan: seems to be improving clinically, cont abx, drain Subjective Subjective Date/Time Seen: 10/13/19 11:19 feels better today, zabrina full liquids s issue Review of Systems Constitutional: Constitutional: Denies chills, Reports fatigue, Reports lethargy and Reports weakness Cardiovascular: Cardiovascular: Denies chest pain Respiratory: Respiratory: Denies dyspnea Gastrointestinal: Gastrointestinal: Reports abdominal pain, Denies bloating, Denies nausea and Denies vomiting Exam Const: General: no acute distress Resp: Auscultation: diminished lung sounds Cardio: Rate: regular rate Rhythm: regular rhythm GI: Other: S, sl dist, stevo TTP RUQ, drain c decreased purulent drainage although still significant Objective Data Vital Signs Vital Signs: Vital Signs - 24 hr 10/12/19 12:00 10/12/19 12:01 10/12/19 12:32 Temperature 35.9 C L Pulse Rate 115 H 117 H 115 H Respiratory Rate 24 H 24 H Blood Pressure 134/88 Pulse Oximetry 94 94 10/12/19 13:35 10/12/19 13:45 10/12/19 14:00 Temperature Pulse Rate 113 H 112 H 122 H Respiratory Rate 20 20 Blood Pressure Pulse Oximetry 10/12/19 15:42 10/12/19 16:00 10/12/19 17:37 Temperature 36.1 C L Pulse Rate 110 H 121 H 113 H Respiratory Rate 20 22 H Blood Pressure 117/99 H Pulse Oximetry 94 92 10/12/19 17:50 10/12/19 19:42 10/12/19 19:47 Temperature 36.6 C Pulse Rate 119 H 67 Respiratory Rate 20 Blood Pressure 132/76 Pulse Oximetry 98 90 10/12/19 19:48 10/12/19 19:54 10/12/19 20:00 Temperature Pulse Rate 123 H 126 H 128 H Respiratory Rate 24 H 24 H 24 H Blood Pressure Pulse Oximetry 90 10/12/19 22:00 10/12/19 23:48 10/13/19 00:00 Temperature 36.2 C L Pulse Rate 125 H 126 H 124 H Respiratory Rate 22 H 22 H Blood Pressure 121/82 Pulse Oximetry 90 90 10/13/19 01:58 10/13/19 02:00 10/13/19 02:04 Temperature Pulse Rate 120 H 120 H 116 H Respiratory Rate 22 H 22 H Blood Pressure Pulse Oximetry 10/13/19 03:54 10/13/19 04:00 10/13/19 05:39 Temperature 36.4 C Pulse Rate 132 H 118 H 114 H Respiratory Rate 22 H 22 H Blood Pressure 121/80 Pulse Oximetry 96 96 10/13/19 07:51 10/13/19 07:53 10/13/19 07:56 Temperature Pulse Rate 119 H 119 H 119 H Respiratory Rate 22 H 22 H Blood Pressure Pulse Oximetry 92 10/13/19 08:00 Temperature 36.6 C Pulse Rate 101 H Respiratory Rate 20 Blood Pressure 105/69 Pulse Oximetry 97 Intake/Output Intake/Output: Intake & Output 10/10/19 10/11/19 10/12/19 10/13/19 23:59 23:59 23:59 23:59 Intake Total 3600 3542 2185 1100 Output Total 970 510 380 Balance 2630 3032 1805 1100 Meds/Results Medications: Active Medications Generic Name Dose Route Start Last Admin Trade Name Freq PRN Reason Stop Dose Admin Acetaminophen 650 mg 10/10/19 11:24 10/10/19 12:18 Tylenol Tablet PO 650 mg Q6H PRN Administration Mild Pain (1-3) or Fever Hydrocodone Bitart/Acetaminophen 1 tab 10/11/19 08:39 10/12/19 22:37 [place] 5-325 Mg PO 1 tab Q6H PRN Administration Pain Rated 4-6 Albuterol 2.5 mg 10/09/19 11:43 Albuterol Sulf Neb 2.5mg/0.5ml INHALATION Q6HRT PRN Shortness Of Breath Aspirin 325 mg 10/09/19 09:00 10/13/19 08:18 Aspirin Ec PO 325 mg DAILY MONET Administration Bisacodyl 10 mg 10/12/19 14:38 Dulcolax Suppository RECTAL QAM PRN Constipation Chlordiazepoxide HCl 25 mg 10/09/19 10:40 10/13/19 05:24 Librium Po PO 25 mg Q8HR MONET Administration Diltiazem HCl 60 mg 10/12/19 18:00 10/12
--- NOTE | 2019-10-13 11:51 | PM.PNCARD ---
Progress Note: A&P Assessment and Plan (1) Afib: Qualifiers: Atrial fibrillation type: unspecified Qualified Code(s): I48.91 - Unspecified atrial fibrillation Code(s): I48.91 - Unspecified atrial fibrillation Status: Acute Assessment and Plan: Of unknown duration when first seen in July of this year. Admitted with abdominal pain and elevated heart rates. Amiodarone was discontinued by Dr. Monahan yesterday. He was restarted on diltiazem 60 mg every 6 hours. First dose was given at 6:00 p.m. yesterday. Heart rates have been fair but far from optimal. Blood pressure is not robust so will not adjust anything further at this time. Would like to get his carvedilol restarted due to his mild LV dysfunction (EF 45-50% 07/27/2019) but will see how he does over today. Not a candidate for anticoagulation due to his alcohol abuse and reported falling. 325 mg daily. Time Spent With Patient Time: Plan discussed with Dr Oscar Diaz 10/13/2019 Time with patient: less than 15 minutes Subjective Date/time seen: 10/13/19 11:51 Interval history: Follow-up for: Atrial fibrillation with rapid ventricular response, LV dysfunction, history hypertension Date of service: 10/13/2019 Subjective: Drowsy. Denied pain or shortness of breath. Review of Systems Review of Systems: ROS unobtainable: Yes unobtainable due to medical condition Exam Const: Other: Very lethargic returning from sitting on side of bed with therapy. Difficult to get him to answer more than 1 question. HENMT: Mouth: Yes dry mucous membranes Eyes: Sclera: sclerae normal Pupils: Equal, round and reactive pupils present Neck: Neck: supple and no JVD Other: No bruit no lymphadenopathy Resp: Effort & Inspection: normal respiratory effort Auscultation: rhonchi throughout Cardio: Rate: tachycardic Rhythm: abnormal rhythm irregularly irregular Heart sounds: no murmurs GI: Inspection: distended GI Palp: Yes Soft to palpation Auscultation: Hypoactive bowel sounds present Other: Pigtail drain Skin: General skin exam: normal color Neuro: Cranial nerves: Yes Equal, round and reactive pupils present Cognition (Neuro): abnormal cognition Other: Responds very slowly to any questions Extrem: General: normal to inspection and no edema Other: No edema adequate distal pulses Objective Data Vital Signs Vital Signs: Vital Signs - 24 hr 10/12/19 12:00 10/12/19 12:01 10/12/19 12:32 Temperature 35.9 C L Pulse Rate 115 H 117 H 115 H Respiratory Rate 24 H 24 H Blood Pressure 134/88 Pulse Oximetry 94 94 10/12/19 13:35 10/12/19 13:45 10/12/19 14:00 Temperature Pulse Rate 113 H 112 H 122 H Respiratory Rate 20 20 Blood Pressure Pulse Oximetry 10/12/19 15:42 10/12/19 16:00 10/12/19 17:37 Temperature 36.1 C L Pulse Rate 110 H 121 H 113 H Respiratory Rate 20 22 H Blood Pressure 117/99 H Pulse Oximetry 94 92 10/12/19 17:50 10/12/19 19:42 10/12/19 19:47 Temperature 36.6 C Pulse Rate 119 H 67 Respiratory Rate 20 Blood Pressure 132/76 Pulse Oximetry 98 90 10/12/19 19:48 10/12/19 19:54 10/12/19 20:00 Temperature Pulse Rate 123 H 126 H 128 H Respiratory Rate 24 H 24 H 24 H Blood Pressure Pulse Oximetry 90 10/12/19 22:00 10/12/19 23:48 10/13/19 00:00 Temperature 36.2 C L Pulse Rate 125 H 126 H 124 H Respiratory Rate 22 H 22 H Blood Pressure 121/82 Pulse Oximetry 90 90 10/13/19 01:58 10/13/19 02:00 10/13/19 02:04 Temperature Pulse Rate 120 H 120 H 116 H Respiratory Rate 22 H 22 H Blood Pressure Pulse Oximetry 10/13/19 03:54 10/13/19 04:00 10/13/19 05:39 Temperature 36.4 C Pulse Rate 132 H 118 H 114 H Respiratory Rate 22 H 22 H Blood Pressure 121/80 Pulse Oximetry 96 96 10/13/19 07:51 10/13/19 07:53 10/13/19 07:56 Temperature Pulse Rate 119 H 119 H 119 H Respiratory Rate 22 H 22 H Blood Pressure Pulse Oximetry 92 07/0
--- NOTE | 2019-10-13 13:01 | WPDINFPN2 ---
Progress Note: A&P Assessment and Plan (1) Gallbladder abscess: Code(s): K81.0 - Acute cholecystitis Status: Acute Assessment and Plan: 1. Acute cholecystitis with abscess, MDRO isolated. 2. Dysphagia, suspect swallowing dysfunction due to debility and muscle deconditioning. He has no aspiration pneumonia in need of additional antibiotics. REC Imipenem # 4, continue. Repeat CT is planned. has concerns about what will be done for him ultimately, I referred her Qs to her surgical team since the underlying cause of his illness is managed surgically. Subjective Date/time seen: 10/13/19 13:01 Interval history: abd pain persists. at bedside and feeding him ice cream, she notes that he does not swallow as he should Exam Narrative: Exam Narrative: afebrile Const: General: no acute distress Other: appears ill Resp: Effort & Inspection: normal respiratory effort Auscultation: clear to auscultation bilaterally Other: upper airway noise Cardio: Rate: tachycardic Rhythm: regular rhythm Heart sounds: no murmurs GI: Inspection: distended GI Palp: Yes Firmness to palpation present (GI), Yes Tenderness to palpation present (GI) and No Guarding due to palpation present (GI) Percussion: Yes tympanic to percussion Auscultation: abnormal bowel sounds Skin: General skin exam: normal color and no rashes or lesions noted Objective Data Vital Signs Vital Signs: Vital Signs - 24 hr 10/12/19 13:35 10/12/19 13:45 10/12/19 14:00 Temperature Pulse Rate 113 H 112 H 122 H Respiratory Rate 20 20 Blood Pressure Pulse Oximetry 10/12/19 15:42 10/12/19 16:00 10/12/19 17:37 Temperature 36.1 C L Pulse Rate 110 H 121 H 113 H Respiratory Rate 20 22 H Blood Pressure 117/99 H Pulse Oximetry 94 92 10/12/19 17:50 10/12/19 19:42 10/12/19 19:47 Temperature 36.6 C Pulse Rate 119 H 67 Respiratory Rate 20 Blood Pressure 132/76 Pulse Oximetry 98 90 10/12/19 19:48 10/12/19 19:54 10/12/19 20:00 Temperature Pulse Rate 123 H 126 H 128 H Respiratory Rate 24 H 24 H 24 H Blood Pressure Pulse Oximetry 90 10/12/19 22:00 10/12/19 23:48 10/13/19 00:00 Temperature 36.2 C L Pulse Rate 125 H 126 H 124 H Respiratory Rate 22 H 22 H Blood Pressure 121/82 Pulse Oximetry 90 90 10/13/19 01:58 10/13/19 02:00 10/13/19 02:04 Temperature Pulse Rate 120 H 120 H 116 H Respiratory Rate 22 H 22 H Blood Pressure Pulse Oximetry 10/13/19 03:54 10/13/19 04:00 10/13/19 05:39 Temperature 36.4 C Pulse Rate 132 H 118 H 114 H Respiratory Rate 22 H 22 H Blood Pressure 121/80 Pulse Oximetry 96 96 10/13/19 07:51 10/13/19 07:53 10/13/19 07:56 Temperature Pulse Rate 119 H 119 H 119 H Respiratory Rate 22 H 22 H Blood Pressure Pulse Oximetry 92 10/13/19 08:00 10/13/19 10:00 10/13/19 11:50 Temperature 36.6 C 35.9 C L Pulse Rate 112 H 107 H 117 H Respiratory Rate 20 22 H Blood Pressure 105/69 114/85 Pulse Oximetry 97 98 10/13/19 12:00 Temperature Pulse Rate 119 H Respiratory Rate 22 H Blood Pressure Pulse Oximetry 98 Intake/Output Intake/Output: Intake & Output 10/10/19 10/11/19 10/12/19 10/13/19 23:59 23:59 23:59 23:59 Intake Total 3600 3542 2185 1200 Output Total 970 510 380 Balance 2630 3032 1805 1200 Meds/Results Medications: Active Medications Generic Name Dose Route Start Last Admin Trade Name Freq PRN Reason Stop Dose Admin Acetaminophen 650 mg 10/10/19 11:24 10/10/19 12:18 Tylenol Tablet PO 650 mg Q6H PRN Administration Mild Pain (1-3) or Fever Hydrocodone Bitart/Acetaminophen 1 tab 10/11/19 08:39 10/12/19 22:37 [place] 5-325 Mg PO 1 tab Q6H PRN Administration Pain Rated 4-6 Albuterol 2.5 mg 10/09/19 11:43 Albuterol Sulf Neb 2.5mg/0.5ml INHALATION Q6HRT PRN Shortness Of Breath Aspirin 325 mg 10/09/19 09:00 10/13/19 08:18 Aspirin Ec PO 325 mg MARVEL
[2019-10-13] MEDS: SCOPOLAMINE 1.5 MG PATCH TRANSDERM (13:26)
--- NOTE | 2019-10-13 16:20 | PM.IMPN ---
Progress Note: A&P Assessment and Plan (1) Gallbladder abscess: Code(s): K81.0 - Acute cholecystitis Status: Acute Assessment and Plan: 10/13/19 16:20 A drain was placed per Interventional Radiology. And surgery has been consulted. ecoli seen in his cultures. Patient is on impenem Add nitrofurantoin Patient is 69-year-old male with long history of alcohol abuse he presented emergency department with abdominal pain his found to have abscess along his gallbladder patient was seen by general surgery patient is not a candidate surgical intervention at the present time and interventional radiologist placed a drain which is draining bile and what appears to be poor on discharge, the abscess culture is growing E coli sensitive to imipenem similarly urine culture is growing E coli with ESBL sensitive to imipenem, is seen by Dr. jett continue to imipenem, patient also has a history of atrial fibrillation now in RVR was started on Amio drip seen by kiln burner and switch him over to oral diltiazem rate is trending down, patient complains of abdominal pain denies any fever or chills. Today again patient is seen by Dr. jett recommended to continue current management and seen by surgery team CT scan abdomen was ordered and pending (2) COPD (chronic obstructive pulmonary disease): Code(s): J44.9 - Chronic obstructive pulmonary disease, unspecified Status: Chronic Assessment and Plan: restart breathing treatments (3) BPH (benign prostatic hyperplasia): Code(s): N40.0 - Benign prostatic hyperplasia without lower urinary tract symptoms Status: Chronic Assessment and Plan: Terazosin on hold at this time. (4) Septic shock: Code(s): A41.9 - Sepsis, unspecified organism; R65.21 - Severe sepsis with septic shock Status: Chronic Assessment and Plan: Continue iv fluids and iv impenem, cut back iv fluids (5) Acute UTI: Code(s): N39.0 - Urinary tract infection, site not specified Status: Acute Assessment and Plan: Pt is found to have ESBL in his urine add nitrofurantoin for coverage and ecoli in his cultures. (6) Sepsis: Code(s): A41.9 - Sepsis, unspecified organism Status: Acute Assessment and Plan: Pt is on iv fluids and IV abx seen by DR Surgery team ABX changed (7) Afib: Qualifiers: Atrial fibrillation type: unspecified Qualified Code(s): I48.91 - Unspecified atrial fibrillation Code(s): I48.91 - Unspecified atrial fibrillation Status: Acute Assessment and Plan: pT had amiodarone drip last night for fast AF. Plan is above (8) CHF (congestive heart failure): Qualifiers: Heart failure type: systolic Heart failure chronicity: chronic Qualified Code(s): I50.22 - Chronic systolic (congestive) heart failure Code(s): I50.9 - Heart failure, unspecified Status: Chronic Assessment and Plan: pt is on coreg Subjective Date/time seen: 10/13/19 16:20 A drain was placed per Interventional Radiology. And surgery has been consulted. ecoli seen in his cultures. Patient is on impenem Add nitrofurantoin Patient is 69-year-old male with long history of alcohol abuse he presented emergency department with abdominal pain his found to have abscess along his gallbladder patient was seen by general surgery patient is not a candidate surgical intervention at the present time and interventional radiologist placed a drain which is draining bile and what appears to be poor on discharge, the abscess culture is growing E coli sensitive to imipenem similarly urine culture is growing E coli with ESBL sensitive to imipenem, is seen by Dr. jett continue to imipenem, patient also has a history of atrial fibrillation now in RVR was started on Amio drip seen by kiln burner and switch him over to oral diltiazem rate is trending down, patient complains of abdominal pain denies any fever or chills. T
[2019-10-14] VITALS (22 sets, daily range): BP systolic 101–116; BP diastolic 61–95; PULSE 101–122; RESP 18–26; TEMP 36.2–36.6; O2SAT 91–95
[2019-10-14] MEDS: IPRATROPIUM BR 0.02% INH SOLN 0.5 MG/2.5 ML VIAL INHALATION ×4 (02:35→21:00)
[2019-10-14] MEDS: CENTRAL LINE FLUSH 10 ML IV PUSH ×4 (05:31→20:42)
[2019-10-14] MEDS: dilTIAZem HCL 60 MG TABLET PO (05:31)
[2019-10-14] MEDS: SODIUM CHLORIDE 0.9% IV 1,000 ML 60 ML IV CONT (05:31)
[2019-10-14 06:06] LABS: Blood Urea Nitrogen 8 mg/dL (9-20); Calcium 8.3 mg/dL (8.4-10.2); Carbon Dioxide 24 mmol/L (22-30); Chloride 101 mmol/L (98-107); Estimated CRCL calculation 150 ml/min; Estimated Glomerular Filt Rate > 60; Glucose 96 mg/dL (75-110); Magnesium 1.6 mg/dL (1.6-2.3); Phosphorus 3.7 mg/dL (2.5-4.5); Potassium 3.5 mmol/L (3.4-5.0); Sodium 131 mmol/L (137-145)
[2019-10-14 06:07] LABS: Hematocrit 33.8 % (42.0-52.0); Hemoglobin 10.8 g/dL (14.0-18.0); Mean Corpuscular Hemoglobin 30.4 pg (26-34); Mean Corpuscular Volume 95.2 fl (80-100); Mean Platelet Volume 9.5 fl (7.4-10.4); Platelet Count Result 243 k/mm3 (150-375); Red Blood Count 3.55 M/mm3 (4.6-6.20); Red Cell Distribution Width 14.7 % (11.5-14.5); White Blood Count 12.6 K/mm3 (4.5-10.0)
--- NOTE | 2019-10-14 07:25 | PCOTNOTE ---
Attempted to see this A.M. per RN, do not see at this time due to Patients condition, RN to assess him. Will check back at a later time.
[2019-10-14] MEDS: TIMOLOL MALEATE 0.5% OP SOLN 5 ML BTL 1 DROP EACH EYE ×2 (08:11→20:42)
[2019-10-14 10:48] LABS: Device ROOM AIR; Fractional Inspired Oxygen 21 %; HCO3 ABG 22.8 mEq/l (22.0-26.0); Modified Allen's Test Pass; Oxygen Content ABG 14.9 %vol (16.0-22.0); Oxyhemoglobin 85.6 % THb (90.0-100.0); PCO2 ABG 35.2 mmHg (35.0-45.0); PO2 ABG 53.6 mmHg (80.0-100.0); PO2 FiO2 Ratio Arterial Blood 2.55 %; Site Drawn RIGHT RADIAL; Total Hemoglobin 12.4 g/dL (12.0-18.0)
--- NOTE | 2019-10-14 12:31 | WPDINFPN2 ---
Subjective Date/time seen: 10/14/19 12:31 Interval history: unavailable to be seen, in XRay Objective Data Vital Signs Vital Signs: Vital Signs - 24 hr 10/13/19 13:32 10/13/19 13:37 10/13/19 14:00 Temperature Pulse Rate 113 H 113 H 109 H Respiratory Rate 22 H 22 H Blood Pressure Pulse Oximetry 10/13/19 15:42 10/13/19 16:00 10/13/19 17:51 Temperature 36.4 C L Pulse Rate 109 H 114 H 115 H Respiratory Rate 22 H 24 H Blood Pressure 109/78 Pulse Oximetry 98 93 10/13/19 19:47 10/13/19 20:00 10/13/19 20:54 Temperature 36.6 C Pulse Rate 110 H 114 H 124 H Respiratory Rate 24 H 20 Blood Pressure 101/78 Pulse Oximetry 96 10/13/19 20:58 10/13/19 21:00 10/13/19 22:00 Temperature Pulse Rate 124 H 115 H 112 H Respiratory Rate 20 20 Blood Pressure Pulse Oximetry 91 10/13/19 23:58 10/14/19 00:00 10/14/19 01:58 Temperature 36.5 C Pulse Rate 126 H 117 H 116 H Respiratory Rate 22 H Blood Pressure 131/82 Pulse Oximetry 94 10/14/19 02:35 10/14/19 02:43 10/14/19 04:00 Temperature 36.6 C Pulse Rate 111 H 114 H 105 H Respiratory Rate 24 H 24 H 18 Blood Pressure 101/76 Pulse Oximetry 94 10/14/19 05:55 10/14/19 08:00 10/14/19 09:06 Temperature 36.2 C L Pulse Rate 105 H 109 H 101 H Respiratory Rate 24 H 22 H Blood Pressure 111/79 Pulse Oximetry 92 10/14/19 09:07 10/14/19 09:13 10/14/19 12:00 Temperature 36.2 C L Pulse Rate 103 H 119 H Respiratory Rate 22 H 26 H Blood Pressure 111/95 H Pulse Oximetry 91 95 Intake/Output Intake/Output: Intake & Output 10/11/19 10/12/19 10/13/19 10/14/19 23:59 23:59 23:59 23:59 Intake Total 3542 2185 1500 1150 Output Total 510 380 25 Balance 3032 8815 4235 1150 Meds/Results Medications: Active Medications Generic Name Dose Route Start Last Admin Trade Name Freq PRN Reason Stop Dose Admin Acetaminophen 650 mg 10/10/19 11:24 10/10/19 12:18 Tylenol Tablet PO 650 mg Q6H PRN Administration Mild Pain (1-3) or Fever Hydrocodone Bitart/Acetaminophen 1 tab 10/11/19 08:39 10/12/19 22:37 [place] 5-325 Mg PO 1 tab Q6H PRN Administration Pain Rated 4-6 Albuterol 2.5 mg 10/09/19 11:43 Albuterol Sulf Neb 2.5mg/0.5ml INHALATION Q6HRT PRN Shortness Of Breath Aspirin 325 mg 10/09/19 09:00 10/13/19 08:18 Aspirin Ec PO 325 mg DAILY MONET Administration Bisacodyl 10 mg 10/12/19 14:38 Dulcolax Suppository RECTAL QAM PRN Constipation Chlordiazepoxide HCl 25 mg 10/09/19 10:40 10/14/19 05:27 Librium Po PO Not Given Q8HR MONET Diltiazem HCl 60 mg 10/12/19 18:00 10/14/19 05:31 Cardizem Tab PO 60 mg Q6HR MONET Administration Enoxaparin Sodium 40 mg 10/09/19 09:00 10/13/19 08:18 Lovenox SUB-Q 40 mg DAILY MONET Administration Folic Acid 1 mg 10/09/19 09:00 10/13/19 08:18 Folic Acid PO 1 mg DAILY MONET Administration Sodium Chloride 1,000 mls @ 60 mls/hr 10/08/19 17:00 10/14/19 05:31 Normal Saline Iv IV CONT 60 mls/hr .[id number] MONET Administration Imipenem/Cilastatin Sodium 500 mg in 100 mls @ 300 mls/hr 10/10/19 13:00 10/14/19 05:57 Primaxin 500 Mg/D5w 100 Ml IVPB Infused Q6HR MONET Infusion Ipratropium [place] 0.5 mg 10/09/19 14:00 10/14/19 09:05 Atrovent Neb INHALATION 0.5 mg Q6HRT MONET Administration Ipratropium [place] 0.5 mg 10/09/19 11:45 Atrovent Neb INHALATION Q6HRT PRN Shortness Of Breath Levalbuterol HCl 2 puff 10/08/19 20:35 Xopenex Hfa INHALATION Q6HRT PRN Shortness Of Breath Levalbuterol HCl 1.25 mg 10/12/19 02:00 10/14/19 02:35 Xopenex 1.25 Mg/0.5 Ml INHALATION 1.25 mg Q6HRT MONET Administration Multivitamins Therapeutic 1 tablet 10/10/19 09:00 10/13/19 08:18 Multivitamins Therapeutic(*Bkc PO 1 tablet DAILY MONET Administration Nitrofurantoin Macrocrystals 50 mg 10/10/19 17:00 10/13/19 20:08 M
[2019-10-14] MEDS: FUROSEMIDE INJ 40 MG/4 ML VIAL 20 MG IV PUSH (13:06)
--- NOTE | 2019-10-14 13:10 | PM.PNCARD ---
Progress Note: A&P Assessment and Plan (1) Afib: Qualifiers: Atrial fibrillation type: unspecified Qualified Code(s): I48.91 - Unspecified atrial fibrillation Code(s): I48.91 - Unspecified atrial fibrillation Status: Acute Assessment and Plan: Of unknown duration when first seen in July of this year. At that time he was difficult to control. Was on a significant dose of diltiazem along with carvedilol. Admitted with abdominal pain and elevated heart rates. Due to his mild LV dysfunction (EF 45-50% 07/27/2019) would benefit from beta-edmund. Due to mental status at this time and questionable ability to swallow medications safely will change to Metoprolol 5 mg q.6 hours for rate control. Stop diltiazem p.o. for now. Blood pressure soft at times. Monitor closely. Supplement potassium and magnesium. Not a candidate for anticoagulation due to his alcohol abuse and reported falling. Change p.o. aspirin 325 mg to suppository. Additional Plan Furosemide given this morning by for pleural effusions on CT scan. Voiding well. Has been getting IV fluid since admission. Likely getting fluid volume overloaded. Stop IV fluids for now. Gently diurese. Recommend swallow study before feeding him or p.o. medications again. Plan discussed with Dr Moore [id number] 10/14/2019 This document was completed by using [employer] speech recognition software, therefore, marketing support manager variances may occur. Subjective Date/time seen: 10/14/19 13:10 Interval history: Follow-up for: Atrial fibrillation with rapid ventricular response, mild LV dysfunction, history hypertension Date of service: 10/14/2019 Subjective: Just return from radiology for abscess drain. Second drain has been placed. A little more clear today but still does not answer more than 1 question at a time. Review of Systems Review of Systems: ROS unobtainable: Yes unobtainable due to mental status Exam Const: Other: Lethargic and weak. Difficult to get him to answer more than 1 question at a time. Denied pain. Denied shortness of breath. HENMT: Mouth: Yes dry mucous membranes Eyes: Sclera: sclerae normal Pupils: Equal, round and reactive pupils present Neck: Neck: supple and no JVD Resp: Effort & Inspection: normal respiratory effort Auscultation: rhonchi (Expiratory. Sounds like upper airway.) and diminished lung sounds (On inspiration) bilateral throughout Other: A lot of secretions that he is unable to cough up. Attempted to suction orally without much improvement. Lungs decreased on inspiration. Cardio: Rate: tachycardic Rhythm: abnormal rhythm irregularly irregular Heart sounds: no murmurs GI: Inspection: distended Auscultation: Hypoactive bowel sounds present Other: Pigtail drain x2. Purulence drainage. Urinary Catheter: Urinary Catheter: other (Condom cath in place. Urine is clear) Skin: General skin exam: normal color Neuro: Cranial nerves: Yes Equal, round and reactive pupils present Cognition (Neuro): abnormal cognition Other: Responds very slowly to any questions but a little more clear than yesterday. No gag reflex when suctioned orally deeply. Extrem: General: normal to inspection and no edema Other: Trace lower extremity edema adequate distal pulses Objective Data Vital Signs Vital Signs: Vital Signs - 24 hr 10/13/19 13:32 10/13/19 13:37 10/13/19 14:00 Temperature Pulse Rate 113 H 113 H 109 H Respiratory Rate 22 H 22 H Blood Pressure Pulse Oximetry 10/13/19 15:42 10/13/19 16:00 10/13/19 17:51 Temperature 36.4 C L Pulse Rate 109 H 114 H 115 H Respiratory Rate 22 H 24 H Blood Pressure 109/78 Pulse Oximetry 98 93 10/13/19 19:47 10/13/19 20:00 10/13/19 20:54 Temperature 36.6 C Pulse Rate 110 H 114 H 124 H Respiratory Rate 24 H 20 Blood Pressure 101/78 Pulse Oximetry 96 10/13/19 20:58 10/13/19 21:00 10/13/19 22:00 Temperature Pulse Rate 124 H 1
--- NOTE | 2019-10-14 13:45 | PCPTNOTE ---
Therapy session was held per RN due to Pt's medical status. Will continue with POC tomorrow.
[2019-10-14] MEDS: METOPROLOL TARTRATE INJ 5 MG/5 ML VIAL IV PUSH ×2 (14:18→20:44)
[2019-10-14] MEDS: PANTOPRAZOLE SODIUM IV 40 MG VIAL IV PUSH (14:20)
[2019-10-14] MEDS: ENOXAPARIN 40 MG/0.4 ML SYRINGE SUB-Q (14:24)
[2019-10-14] MEDS: MAGNESIUM SULF 2 GM/WATER 50ML 2 GM/50 ML BAG IVPB (14:26)
--- NOTE | 2019-10-14 14:28 | PC.NURSE ---
am po medications not given due to pt being drowsy- Dr. Burk informed
--- NOTE | 2019-10-14 14:45 | PCOTNOTE ---
Per RN, Patient not to be seen this P.M. for therapy treatment session.
--- NOTE | 2019-10-14 16:01 | PM.IMPN ---
Progress Note: A&P Assessment and Plan (1) Gallbladder abscess: Code(s): K81.0 - Acute cholecystitis Status: Acute Assessment and Plan: 10/14/19 16:01 A drain was placed per Interventional Radiology. And surgery has been consulted. ecoli seen in his cultures. Patient is on impenem Add nitrofurantoin Patient is 69-year-old male with long history of alcohol abuse he presented emergency department with abdominal pain his found to have abscess along his gallbladder patient was seen by general surgery patient is not a candidate surgical intervention at the present time and interventional radiologist placed a drain which is draining bile and what appears to be poor on discharge, the abscess culture is growing E coli sensitive to imipenem similarly urine culture is growing E coli with ESBL sensitive to imipenem, is seen by Dr. jett continue to imipenem, patient also has a history of atrial fibrillation now in RVR was started on Amio drip seen by automotive engineering technician and switch him over to oral diltiazem rate is trending down, patient complains of abdominal pain denies any fever or chills. on 10/[address]-guided drainage of the gallbladder abscess, today again patient had a ultrasound-guided drainage of abdominal wall abscess, patient is seen by Dr. jett recommended to continue current management, today patient more congested and slightly short of breath chest x-ray showed pleural effusion a low-dose of IV Lasix 20 mg was given to help diurese and stop IV fluid, patient be seen by surgeon, spoke with the patient's and answered all her questions (2) COPD (chronic obstructive pulmonary disease): Code(s): J44.9 - Chronic obstructive pulmonary disease, unspecified Status: Chronic Assessment and Plan: restart breathing treatments (3) BPH (benign prostatic hyperplasia): Code(s): N40.0 - Benign prostatic hyperplasia without lower urinary tract symptoms Status: Chronic Assessment and Plan: Terazosin on hold at this time. (4) Septic shock: Code(s): A41.9 - Sepsis, unspecified organism; R65.21 - Severe sepsis with septic shock Status: Chronic Assessment and Plan: Continue iv fluids and iv impenem, cut back iv fluids (5) Acute UTI: Code(s): N39.0 - Urinary tract infection, site not specified Status: Acute Assessment and Plan: Pt is found to have ESBL in his urine add nitrofurantoin for coverage and ecoli in his cultures. (6) Sepsis: Code(s): A41.9 - Sepsis, unspecified organism Status: Acute Assessment and Plan: Pt is on iv fluids and IV abx seen by DR Surgery team ABX changed (7) Afib: Qualifiers: Atrial fibrillation type: unspecified Qualified Code(s): I48.91 - Unspecified atrial fibrillation Code(s): I48.91 - Unspecified atrial fibrillation Status: Acute Assessment and Plan: pT had amiodarone drip last night for fast AF. Plan is above (8) CHF (congestive heart failure): Qualifiers: Heart failure type: systolic Heart failure chronicity: chronic Qualified Code(s): I50.22 - Chronic systolic (congestive) heart failure Code(s): I50.9 - Heart failure, unspecified Status: Chronic Assessment and Plan: pt is on coreg Subjective Date/time seen: 10/14/19 16:01 A drain was placed per Interventional Radiology. And surgery has been consulted. ecoli seen in his cultures. Patient is on impenem Add nitrofurantoin Patient is 69-year-old male with long history of alcohol abuse he presented emergency department with abdominal pain his found to have abscess along his gallbladder patient was seen by general surgery patient is not a candidate surgical intervention at the present time and interventional radiologist placed a drain which is draining bile and what appears to be poor on discharge, the abscess culture is growing E coli sensitive to imipenem similarly urine culture is
--- NOTE | 2019-10-14 18:16 | PM.PNGS ---
Progress Note: A&P Assessment and Plan (1) Hepatic abscess: Code(s): K75.0 - Abscess of liver Status: Acute Assessment and Plan: will need second drain to drain hepatic abscess, cont abx (2) Gallbladder abscess: Code(s): K81.0 - Acute cholecystitis Status: Acute Assessment and Plan: good drainage, cont drain for now, abx (3) Septic shock: Code(s): A41.9 - Sepsis, unspecified organism; R65.21 - Severe sepsis with septic shock Status: Chronic Assessment and Plan: will get additional drain today for undrained hepatic abscess, cont abx Subjective Subjective Date/Time Seen: 10/14/19 18:16 Pt seems more alert, c/o mild RUQ tenderness at drain site Review of Systems Constitutional: Constitutional: Reports chills, Reports fatigue, Reports lethargy and Reports weakness Cardiovascular: Cardiovascular: Denies chest pain Respiratory: Respiratory: Reports dyspnea on exertion Gastrointestinal: Gastrointestinal: Reports abdominal pain, Denies nausea and Denies vomiting Exam Const: General: in distress mild Resp: Auscultation: diminished lung sounds Cardio: Rate: tachycardic GI: Other: S, mod dist, +TTP RUQ, DAVEY purulent drainage Objective Data Vital Signs Vital Signs: Vital Signs - 24 hr 10/13/19 19:47 10/13/19 20:00 10/13/19 20:54 Temperature 36.6 C Pulse Rate 110 H 114 H 124 H Respiratory Rate 24 H 20 Blood Pressure 101/78 Pulse Oximetry 96 10/13/19 20:58 10/13/19 21:00 10/13/19 22:00 Temperature Pulse Rate 124 H 115 H 112 H Respiratory Rate 20 20 Blood Pressure Pulse Oximetry 91 10/13/19 23:58 10/14/19 00:00 10/14/19 01:58 Temperature 36.5 C Pulse Rate 126 H 117 H 116 H Respiratory Rate 22 H Blood Pressure 131/82 Pulse Oximetry 94 10/14/19 02:35 10/14/19 02:43 10/14/19 04:00 Temperature 36.6 C Pulse Rate 111 H 114 H 105 H Respiratory Rate 24 H 24 H 18 Blood Pressure 101/76 Pulse Oximetry 94 10/14/19 05:55 10/14/19 08:00 10/14/19 09:06 Temperature 36.2 C L Pulse Rate 105 H 109 H 101 H Respiratory Rate 24 H 22 H Blood Pressure 111/79 Pulse Oximetry 92 10/14/19 09:07 10/14/19 09:13 10/14/19 12:00 Temperature 36.2 C L Pulse Rate 103 H 119 H Respiratory Rate 22 H 26 H Blood Pressure 111/95 H Pulse Oximetry 91 95 10/14/19 14:18 10/14/19 14:29 10/14/19 14:40 Temperature Pulse Rate 110 H 101 H 101 H Respiratory Rate 20 20 Blood Pressure Pulse Oximetry 10/14/19 16:00 Temperature 36.2 C L Pulse Rate 103 H Respiratory Rate 24 H Blood Pressure 104/61 Pulse Oximetry 94 Intake/Output Intake/Output: Intake & Output 10/11/19 10/12/19 10/13/19 10/14/19 23:59 23:59 23:59 23:59 Intake Total 3542 2185 1500 1300 Output Total 510 380 25 0 Balance 3032 1805 1475 1300 Meds/Results Medications: Active Medications Generic Name Dose Route Start Last Admin Trade Name Freq PRN Reason Stop Dose Admin Acetaminophen 650 mg 10/10/19 11:24 10/10/19 12:18 Tylenol Tablet PO 650 mg Q6H PRN Administration Mild Pain (1-3) or Fever Hydrocodone Bitart/Acetaminophen 1 tab 10/11/19 08:39 10/12/19 22:37 [place] 5-325 Mg PO 1 tab Q6H PRN Administration Pain Rated 4-6 Albuterol 2.5 mg 10/09/19 11:43 Albuterol Sulf Neb 2.5mg/0.5ml INHALATION Q6HRT PRN Shortness Of Breath Aspirin 325 mg 10/09/19 09:00 10/14/19 14:25 Aspirin Ec PO Not Given DAILY MONET Aspirin 300 mg 10/15/19 09:00 Aspirin Suppository RECTAL DAILY MONET Bisacodyl 10 mg 10/12/19 14:38 Dulcolax Suppository RECTAL QAM PRN Constipation Chlordiazepoxide HCl 25 mg 10/09/19 10:40 10/14/19 14:27 Librium Po PO Not Given Q8HR MONET Dornase [place] 2.5 mg 10/14/19 20:00 Pulmozyme INHALATION Q12HRT MONET Enoxaparin Sodium 40 mg 10/09/19 09:00 10/14/19 14:24 Lovenox SUB-Q 40 mg DAILY MONET Administrat
--- NOTE | 2019-10-14 20:03 | PC.NURSE ---
[id number] in [facility] department for US guided procedure
[2019-10-14] MEDS: DORNASE ALFA INH SOLN 1 MG/ML 2.5 ML AMP 2.5 MG INHALATION (21:00)
[2019-10-15] VITALS (33 sets, daily range): BP systolic 81–117; BP diastolic 61–91; PULSE 59–126; RESP 18–26; TEMP 35.5–36.9; O2SAT 83–100; BMI 36.8
[2019-10-15] MEDS: METOPROLOL TARTRATE INJ 5 MG/5 ML VIAL IV PUSH (00:59)
[2019-10-15] MEDS: IPRATROPIUM BR 0.02% INH SOLN 0.5 MG/2.5 ML VIAL INHALATION ×4 (01:55→19:32)
[2019-10-15] MEDS: CENTRAL LINE FLUSH 10 ML IV PUSH ×4 (05:36→22:00)
[2019-10-15 05:45] LABS: Basophils Percent Auto 0.3 % (0.2-1.2); Eosinophils Percent Auto 0.2 % (0-4.4); Hematocrit 34.1 % (42.0-52.0); Hemoglobin 11.1 g/dL (14.0-18.0); Immature Granulocyte Absolute 0.22 K/mm3 (0.00-0.031); Immature Granulocyte Percent A 1.7 % (0-0.5); Lymphocytes Absolute Auto 1.51 K/mm3 (0.9-3.2); Mean Corpuscular HGB Conc 32.6 g/dl (32-36); Mean Corpuscular Volume 95.3 fl (80-100); Mean Platelet Volume 9.3 fl (7.4-10.4); Monocytes Absolute Auto 0.6 K/mm3 (0.1-0.6); Monocytes Percent Auto 4.8 % (2.6-8.5); Neutrophils Absolute Auto 10.2 K/mm3 (1.3-6.7); Platelet Count Result 256 k/mm3 (150-375); Red Blood Count 3.58 M/mm3 (4.6-6.20); Red Cell Distribution Width 14.9 % (11.5-14.5); White Blood Count 12.6 K/mm3 (4.5-10.0)
[2019-10-15 05:57] LABS: Alanine Aminotransferase 8 U/L (4-50); Albumin Level 2.2 g/dL (3.5-5.1); Alkaline Phosphatase 173 U/L (38-126); Aspartate Amino Transferase 16 U/L (17-59); Bilirubin,Total 0.4 mg/dL (0.2-1.3); Blood Urea Nitrogen 8 mg/dL (9-20); Calcium 8.2 mg/dL (8.4-10.2); Carbon Dioxide 25 mmol/L (22-30); Chloride 102 mmol/L (98-107); Estimated CRCL calculation 151 ml/min; Estimated Glomerular Filt Rate > 60; Glucose 105 mg/dL (75-110); Sodium 132 mmol/L (137-145)
[2019-10-15] MEDS: DORNASE ALFA INH SOLN 1 MG/ML 2.5 ML AMP 2.5 MG INHALATION ×2 (08:02→19:40)
--- NOTE | 2019-10-15 10:07 | PCOTNOTE ---
First attempt to see patient RN had said he was okay to see, but upon arrival could not arouse patient. Second attempt to see patient RN was present, patient was still not aroused. RN to notify respiratory 10/15/2019.
[2019-10-15] MEDS: MAGNESIUM SULF 2 GM/WATER 50ML 2 GM/50 ML BAG IVPB (10:56)
[2019-10-15] MEDS: PANTOPRAZOLE SODIUM IV 40 MG VIAL IV PUSH (10:57)
[2019-10-15] MEDS: ASPIRIN 300 MG SUPPOSITORY RECTAL (10:57)
[2019-10-15] MEDS: ENOXAPARIN 40 MG/0.4 ML SYRINGE SUB-Q (10:57)
[2019-10-15] MEDS: TIMOLOL MALEATE 0.5% OP SOLN 5 ML BTL 1 DROP EACH EYE (10:58)
--- NOTE | 2019-10-15 10:58 | PM.PNCARD ---
Progress Note: A&P Assessment and Plan (1) Afib: Qualifiers: Atrial fibrillation type: unspecified Qualified Code(s): I48.91 - Unspecified atrial fibrillation Code(s): I48.91 - Unspecified atrial fibrillation Status: Acute Assessment and Plan: Of unknown duration when first seen in July of this year. At that time he was difficult to control. Was on a significant dose of diltiazem along with carvedilol. Admitted with abdominal pain and elevated heart rates. Due to his mild LV dysfunction (EF 45-50% 07/27/2019) would benefit from beta-edmund. Due to mental status at this time and questionable ability to swallow medications safely Metoprolol was changed to 5 mg every 6 hours. Heart rate is fair but not optimal. Will increase Metoprolol 5 mg IV to q.4 hours as long as his systolic blood pressure is above 105. Diltiazem has been discontinued at this time. Supplement magnesium. Not a candidate for anticoagulation due to his alcohol abuse and reported falling. Continue aspirin 325 mg by suppository. Additional Plan Oxygen to 3 L today sats in the low 90s. Chest x-ray as above. Furosemide 20 mg IV push now. Plan discussed with Dr Oscar Bryant 10/15/2019 This document was completed by using [employer] Fluency Direct speech recognition software, therefore, commercial diver variances may occur. Subjective Date/time seen: 10/15/19 10:58 Interval history: Follow-up for: Atrial fibrillation with rapid ventricular response, mild LV dysfunction, history hypertension Date of service: 10/15/2019 Subjective: He says he is not doing so good today. Denies any pain or shortness of breath. Cooperative. Review of Systems Review of Systems: ROS unobtainable: Yes unobtainable due to medical condition and unobtainable due to mental status Exam Const: Other: In bed. Head of bed elevated 45?. States not doing well but is unable to be more specific. HENMT: Mouth: Yes dry mucous membranes Eyes: Sclera: sclerae normal Pupils: Equal, round and reactive pupils present Neck: Neck: supple Resp: Effort & Inspection: normal respiratory effort Auscultation: rhonchi (Expiratory. Sounds like upper airway.) throughout and diminished lung sounds (On inspiration) bilateral throughout Other: Suction copious amount of yellow secretions Cardio: Rate: tachycardic Rhythm: abnormal rhythm irregularly irregular Heart sounds: no murmurs GI: Inspection: distended Auscultation: Hypoactive bowel sounds present Other: Pigtail drain x2. Purulence drainage. Urinary Catheter: Urinary Catheter: other (Incontinent of urine. Has pulled off condom cath) Skin: General skin exam: normal color Neuro: Cranial nerves: Yes Equal, round and reactive pupils present Cognition (Neuro): abnormal cognition Other: Awake. A little more alert today. Extrem: General: normal to inspection and no edema Other: 1+ lower extremity edema adequate distal pulses Psych: Speech and movement: Other speech and movement exam findings present (Psych) (Mumbles at times) Affect: Sad affect present Objective Data Vital Signs Vital Signs: Vital Signs - 24 hr 10/14/19 12:00 10/14/19 14:18 10/14/19 14:29 Temperature 36.2 C L Pulse Rate 119 H 110 H 101 H Respiratory Rate 26 H 20 Blood Pressure 111/95 H Pulse Oximetry 95 10/14/19 14:40 10/14/19 16:00 10/14/19 18:00 Temperature 36.2 C L Pulse Rate 101 H 108 H 110 H Respiratory Rate 20 24 H Blood Pressure 104/61 Pulse Oximetry 94 10/14/19 20:00 10/14/19 20:44 10/14/19 21:00 Temperature 36.2 C L Pulse Rate 114 H 117 H 115 H Respiratory Rate 24 H 18 Blood Pressure 116/84 Pulse Oximetry 94 92 10/14/19 21:18 10/14/19 22:00 10/14/19 23:27 Temperature Pulse Rate 112 H 110 H 103 H Respiratory Rate 20 24 H Blood Pressure 106/76 Pulse Oximetry 93 10/15/19 00:00 10/15/19 00:59 10/15/19 01:56 Temperature Pulse Rate 112 H 106 H 112 H Respiratory Rate 24 H
[2019-10-15] MEDS: FUROSEMIDE INJ 40 MG/4 ML VIAL 20 MG IV PUSH ×2 (11:32→15:50)
--- NOTE | 2019-10-15 11:47 | PC.NURSE ---
Held morning PO meds due to difficulty swallowing. Dr encarnacion notified, bedside swallow evaluation ordered.
--- NOTE | 2019-10-15 11:56 | PM.PNGS ---
Progress Note: A&P Assessment and Plan (1) Hepatic abscess: Code(s): K75.0 - Abscess of liver Status: Acute Assessment and Plan: Percutaneous abscess drains placed on 10/07 (gallbladder fossa) and 10/13 (hepatic). Both draining well. Drain #1 output decreasing. Continue to monitor perc. drain to suction. WBC slowing trending down. Continue IV antibiotics. (2) Gallbladder abscess: Code(s): K81.0 - Acute cholecystitis Status: Acute Assessment and Plan: See plan above. Continue to monitor perc. drain to suction. Draining well. Continue abx. (3) Ileus: Code(s): K56.7 - Ileus, unspecified Status: Acute Assessment and Plan: Dilated small bowel noted on repeat CT scan. Likely has an ileus due to the intra-abdominal abscesses. Abdomen is somewhat distended, hypoactive bowel sounds. Appetite has been poor. No vomiting but is currently NPO due to swallowing ability. Recommend swallow eval today and it is okay to try a liquid diet again if swallowing well. Initiate laxatives and continue to monitor for bowel function. (4) Septic shock: Code(s): A41.9 - Sepsis, unspecified organism; R65.21 - Severe sepsis with septic shock Status: Chronic Assessment and Plan: Related to #1 above. Blood cultures NGTD. Abscess culture (perc drain #1) grew E. coli (ESBL) sensitive to Imipenem. Urine culture grew E. coli (ESBL) sensitive to Imipenem. WBC slowly trending down. Continue IV antibiotics per ID recommendations. Additional Plan Discussed the plan of care with Dr. Gonzales. Subjective Subjective Date/Time Seen: 10/15/19 11:56 Interval history: Patient seen and examined with him sitting up in chair. He is somewhat confused and lethargic today. He is oriented to time and person, but not place. He cannot recall if he has had a BM and there is no recorded BM in the computer. Per the nurse, patient is currently NPO and will hopefully be getting a swallow evaluation today. He denies abdominal pain, nausea, or vomiting. Denies flatus. No other complaints at this time. Review of Systems Review of Systems: All systems reviewed & are unremarkable except as noted in HPI and below Exam Const: General: no acute distress and lethargic Nutritional Appearance: average body habitus Orientation/consciousness: oriented to person, No oriented to place and oriented to time HENMT: Mouth: Yes dry mucous membranes Cardio: Rate: tachycardic Rhythm: abnormal rhythm irregularly irregular GI: Inspection: distended and other (Pigtail drain x 2 with large amount of purulent drainage) GI Palp: Yes Soft to palpation, Yes Tenderness to palpation present (GI) (RUQ and near perc. drain insertion site), No Guarding due to palpation present (GI) and No Rebound tenderness present Auscultation: Hypoactive bowel sounds present Skin: General skin exam: pallor Neuro: General: moves all extremities and no focal motor deficits Extrem: General: edema bilateral (lower ext.) Psych: Affect: Blunted affect present Attitude: cooperative Insight: Poor insight present (Psych) Judgement: Poor judgement present (Psych) Objective Data Vital Signs Vital Signs: Vital Signs - 24 hr 10/14/19 12:00 10/14/19 14:18 10/14/19 14:29 Temperature 97.1 F L Pulse Rate 119 H 110 H 101 H Respiratory Rate 26 H 20 Blood Pressure 111/95 H Pulse Oximetry 95 10/14/19 14:40 10/14/19 16:00 10/14/19 18:00 Temperature 97.2 F L Pulse Rate 101 H 108 H 110 H Respiratory Rate 20 24 H Blood Pressure 104/61 Pulse Oximetry 94 10/14/19 20:00 10/14/19 20:44 10/14/19 21:00 Temperature 97.2 F L Pulse Rate 114 H 117 H 115 H Respiratory Rate 24 H 18 Blood Pressure 116/84 Pulse Oximetry 94 92 10/14/19 21:18 10/14/19 22:00 10/14/19 23:27 Temperature Pulse Rate 112 H 110 H 103 H Respiratory Rate 20 24 H Blood Pressure 106/76 Pulse Oximetry 93 10/15/19 00:00 10/15/19 00:59 10/15/19 01:56 T
[2019-10-15 13:06] LABS: SARS-CoV-2 RNA PCR Negative
[2019-10-15] MEDS: NITROFURANTOIN MACROCRYSTALS 50 MG CAP PO ×2 (13:30→17:40)
--- NOTE | 2019-10-15 13:49 | WPDCNINT ---
Property Condition Assessor Consult Note Consult date: 10/15/19 Reason for consult: Gallbladder abscess, acute respiratory failure, acute cholecystitis, ileus HPI: Lloydfiliberto Redman is a 69 year old male [facility] Past Medical History Medical History (Updated 10/15/19 @ 13:06 by JOSÉ MIGUEL Evans) Acute cholecystitis 07/2019 treated with antibiotic therapy Alcohol abuse Atrial fibrillation Not on long-term anticoagulation due to high has bled score. BPH (benign prostatic hyperplasia) CHF (congestive heart failure) Mild systolic dysfunction noted on echocardiogram from 07/27/2019 45-50%, mild mitral valve regurgitation, mild aortic valve sclerosis and biatrial dilatation Chronic anemia COPD (chronic obstructive pulmonary disease) Essential hypertension GERD (gastroesophageal reflux disease) Histoplasmosis History of BPH History of TIAs Hyperlipidemia Vitamin D deficiency Surgical History Surgical History History of bilateral cataract extraction History of vasectomy Male circumcision Family History Family History Sibling Polio Father Lung cancer Mother Hypertension Social History Social History (Updated 10/08/19 @ 20:28 by Tanja Sorensen NP) Social History: Patient drinks (3) 4 oz drinks of Tequila a day prior to his hospitalization in July. Currently he is drinking 2 margaritas a day with 1 shot of Tequila each. He has smoked 1.5 packs cigarettes per day for 55 years. Primary care physician: Dr. Jean-Claude Crawford Code status: Full code. Surrogate decision maker is Raine phone number [phone]. The patient has 2 children. 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 Smoking packs per day: 1.5 Smoking cigarettes per day: 30.0 Years smoked: 54 Smoking pack-years: 81.00 Smoking status: Current every day smoker Tobacco type: cigarettes Second hand tobacco smoke exposure: Yes Alcohol intake: current Drinks per week: 2 Substance use: former Substance use type: marijuana Last use: 1970 Additional living arrangements comments: He lives at home with his . Gender identity (if verbalized by the patient): Male Spiritual care concerns: No Agree to blood products: Yes Meds Home Medications and Allergies Home Medications Medication Instructions Recorded Confirmed Type aspirin 325 mg PO DAILY 07/25/19 10/08/19 History cholecalciferol (vitamin D3) 125 mcg PO DAILY 07/25/19 10/08/19 History [Vitamin D3] folic acid 1 mg tablet 1 mg PO DAILY #90 tablet 09/07/19 10/08/19 Rx multivitamin 1 cap PO DAILY 09/07/19 10/08/19 History potassium chloride 10 mEq 10 meq PO DAILY #90 tablet 09/07/19 10/08/19 Rx tablet,extended release pravastatin 40 mg tablet 40 mg PO QAM #90 tablet 09/07/19 10/08/19 Rx terazosin 10 mg capsule 10 mg PO HS #90 cap 09/07/19 10/08/19 Rx carvedilol 37.5 mg PO Q12H #90 tablet 10/05/19 10/08/19 Rx diltiazem HCl 240 mg PO Q12HR #60 cap 10/05/19 10/08/19 Rx omeprazole 20 mg capsule,delayed 20 mg PO DAILY #90 cap 10/05/19 10/08/19 Rx release thiamine HCl (vitamin B1) [Vitamin 100 mg PO QAM #30 tablet 10/05/19 10/08/19 Rx B-1] Allergies Allergy/AdvReac Type Severity Reaction Status Date / Time Penicillins Allergy Severe Hives / Verified 10/08/19 12:16 Red Face Vital Signs Vital Signs - 24 hr 10/14/19 14:18 10/14/19 14:29 10/14/19 14:40 Temperature Pulse Rate 110 H 101 H 101 H Respiratory Rate 20 20 Blood Pressure Pulse Oximetry 10/14/19 16:00 10/14/19 18:00 10/14/19 20:00 Temperature 97.2 F L 97.2 F L Pulse Rate 108 H 110 H 114 H Respiratory Rate 24 H 24 H Blood Pressure 104/61 116/84 Pulse Oximetry 94 94 10/14/19 20:44 10/14/19 21:00 10/14/19 21:18 Temperature Pulse Rate 117 H 115 H 112 H Respiratory Rate 18 20 Blood Pressure Pulse Oximetry 92 10/14/19 22:00 10/14/19 23:2
--- NOTE | 2019-10-15 13:51 | WPDINFPN2 ---
Progress Note: A&P Assessment and Plan (1) Gallbladder abscess: Code(s): K81.0 - Acute cholecystitis Status: Acute Assessment and Plan: 1. Acute cholecystitis with abscess, MDRO isolated. 2. Dysphagia, suspect swallowing dysfunction due to debility and muscle deconditioning. 3. Respiratory distress, possible ARDS due to #1 . REC Imipenem # 6, continue. Sputum culture will be obtained, to correlate with his lung infiltrates (but at present, no additional antibiotic therapy). Guarded outlook, discussed Subjective Date/time seen: 10/15/19 13:51 Interval history: 2nd drain placed yesterday. Seen in ICU, shortly before planned intubation for obtundation and resp distress Exam Narrative: Exam Narrative: afebrile to mild hypothermia Const: General: in distress Neck: Neck: no JVD Resp: Other: decreased breath sounds on left, vesicular, bilateral rales Cardio: Rate: tachycardic Rhythm: regular rhythm Heart sounds: no murmurs GI: Inspection: distended GI Palp: Yes Soft to palpation, Yes Tenderness to palpation present (GI) and No Guarding due to palpation present (GI) Percussion: Yes tympanic to percussion Skin: General skin exam: normal color and no rashes or lesions noted Objective Data Vital Signs Vital Signs: Vital Signs - 24 hr 10/14/19 14:18 10/14/19 14:29 10/14/19 14:40 Temperature Pulse Rate 110 H 101 H 101 H Respiratory Rate 20 20 Blood Pressure Pulse Oximetry 10/14/19 16:00 10/14/19 18:00 10/14/19 20:00 Temperature 36.2 C L 36.2 C L Pulse Rate 108 H 110 H 114 H Respiratory Rate 24 H 24 H Blood Pressure 104/61 116/84 Pulse Oximetry 94 94 10/14/19 20:44 10/14/19 21:00 10/14/19 21:18 Temperature Pulse Rate 117 H 115 H 112 H Respiratory Rate 18 20 Blood Pressure Pulse Oximetry 92 10/14/19 22:00 10/14/19 23:27 10/15/19 00:00 Temperature Pulse Rate 110 H 103 H 112 H Respiratory Rate 24 H 24 H Blood Pressure 106/76 Pulse Oximetry 93 10/15/19 00:59 10/15/19 01:56 10/15/19 02:00 Temperature Pulse Rate 106 H 112 H 102 H Respiratory Rate 20 Blood Pressure Pulse Oximetry 10/15/19 02:06 10/15/19 03:52 10/15/19 04:00 Temperature 35.6 C L Pulse Rate 111 H 115 H 108 H Respiratory Rate 20 26 H 22 H Blood Pressure 107/91 H Pulse Oximetry 90 10/15/19 06:00 10/15/19 08:00 10/15/19 08:03 Temperature 35.5 C L Pulse Rate 114 H 112 H 112 H Respiratory Rate 18 20 Blood Pressure 113/79 Pulse Oximetry 90 10/15/19 08:05 10/15/19 08:20 10/15/19 12:00 Temperature 35.7 C L Pulse Rate 114 H 93 Respiratory Rate 20 26 H Blood Pressure 117/91 H Pulse Oximetry 92 83 L 10/15/19 13:33 Temperature Pulse Rate 115 H Respiratory Rate 18 Blood Pressure Pulse Oximetry Intake/Output Intake/Output: Intake & Output 10/12/19 10/13/19 10/14/19 10/15/19 23:59 23:59 23:59 23:59 Intake Total 2185 1500 1500 200 Output Total 380 25 875 145 Balance 1805 1475 625 55 Meds/Results Medications: Active Medications Generic Name Dose Route Start Last Admin Trade Name Freq PRN Reason Stop Dose Admin Acetaminophen 650 mg 10/10/19 11:24 10/10/19 12:18 Tylenol Tablet PO 650 mg Q6H PRN Administration Mild Pain (1-3) or Fever Hydrocodone Bitart/Acetaminophen 1 tab 10/11/19 08:39 10/12/19 22:37 Nickerson 5-325 Mg PO 1 tab Q6H PRN Administration Pain Rated 4-6 Albuterol 2.5 mg 10/09/19 11:43 Albuterol Sulf Neb 2.5mg/0.5ml INHALATION Q6HRT PRN Shortness Of Breath Aspirin 325 mg 10/09/19 09:00 10/14/19 14:25 Aspirin Ec PO Not Given DAILY MONET Aspirin 300 mg 10/15/19 09:00 10/15/19 10:57 Aspirin Suppository RECTAL 300 mg DAILY MONET Administration Bisacodyl 10 mg 10/15/19 13:23 Dulcolax Suppository RECTAL QAM [facility] Chlordiazepoxide HCl 25 mg 10/09/19 10:40 10/15/19 05:29 Librium Po PO Not Given Q8HR MONET Dornase Fernando
--- NOTE | 2019-10-15 14:05 | WPDINTPN ---
Progress Note: A&P Assessment and Plan (1) Acute respiratory failure: Qualifiers: Respiratory failure complication: hypoxia Qualified Code(s): J96.01 - Acute respiratory failure with hypoxia Code(s): J96.00 - Acute respiratory failure, unspecified whether with hypoxia or hypercapnia Status: Acute Assessment and Plan: Patient seen in the IMU was found to be in impending respiratory failure with gurgling respirations and chest congestion. Discussed with spouse with Dinorah, who was agreeable for intubation. -patient was successfully intubated in the ICU on 10/15/2019 -placed on CMV mode of ventilation, peep of 500% FiO2. -chest x-ray reviewed, ABGs have been ordered -will adjust ventilator after ABGs -sedation with fentanyl and Versed infusion, maintain RASS of 0 to -2, -obtain sputum culture (2) Acute encephalopathy: Code(s): G93.40 - Encephalopathy, unspecified Status: Acute Assessment and Plan: Patient was in the intermediate unit and was found to be in acute encephalopathy, obtunded, responding to deep pain stimulus. -likely due to hypoxia, possible liver dysfunction, severe sepsis (3) Gallbladder abscess: Code(s): K81.0 - Acute cholecystitis Status: Acute Assessment and Plan: Patient has 2 cholecystotomy tubes, 1 of them with isma purulent drainage Surgery service has been following him. Abscess culture growing ESBL E coli, infectious disease following the patient, patient on imipenem (4) Essential hypertension: Code(s): I10 - Essential (primary) hypertension Status: Chronic Assessment and Plan: Patient on metoprolol IV as he is NPO secondary to ileus/small-bowel obstruction -patient currently hypotensive, will hold all antihypertensive (5) COPD (chronic obstructive pulmonary disease): Code(s): J44.9 - Chronic obstructive pulmonary disease, unspecified Status: Chronic Assessment and Plan: Continue bronchodilators (6) Afib: Qualifiers: Atrial fibrillation type: unspecified Qualified Code(s): I48.91 - Unspecified atrial fibrillation Code(s): I48.91 - Unspecified atrial fibrillation Status: Acute Assessment and Plan: AFib RVR metoprolol IV and aspirin 325 mg suppository as he is NPO -patient currently hypotensive post intubation -may require amiodarone (7) Chronic alcohol use: Code(s): Z72.89 - Other problems related to lifestyle Status: Chronic Assessment and Plan: Patient has had alcohol dependence. Thiamine and folate. (8) CHF (congestive heart failure): Qualifiers: Heart failure type: systolic Heart failure chronicity: chronic Qualified Code(s): I50.22 - Chronic systolic (congestive) heart failure Code(s): I50.9 - Heart failure, unspecified Status: Chronic Assessment and Plan: LV systolic function mildly reduced, EF 45-50%. Mild mitral valve regurg, biatrial dilatation -chest x-ray shows possible pulmonary edema versus pneumonia (9) GERD (gastroesophageal reflux disease): Qualifiers: Esophagitis presence: esophagitis presence not specified Qualified Code(s): K21.9 - Gastro-esophageal reflux disease without esophagitis Code(s): K21.9 - Gastro-esophageal reflux disease without esophagitis Status: Chronic Assessment and Plan: Continue IV Protonix (10) Ileus: Code(s): K56.7 - Ileus, unspecified Status: Acute Assessment and Plan: Hypoactive bowel sounds, dilated small bowel on CT scan of the abdomen. -the following the patient, suppositories has been ordered -will discuss with surgery regarding trickle tube feeds in a.m. Additional Plan Discussed with spouse, Dinorah, updated with patient's condition and plan of care. She is aware that patient intubated secondary to impending respiratory failure and acute encephalopathy. Also discuss with her regarding code status to which she r
--- NOTE | 2019-10-15 14:39 | PC.NURSE ---
1300-Patient transferred over to room ICU 3 from . Report received bedside from IMU GAURAV Oconnor. Patient intubated upon arrival to the unit. Vital signs stable upon transfer.
[2019-10-15 15:09] LABS: Alveolar/Arterial O2 Gradient 525.9 mmHg; Base Excess ABG -0.7 mEq/l (+/-2.0); Carboxyhemoglobin 0.3 % THb (0-2.0); Fractional Inspired Oxygen 100 %; HCO3 ABG 23.7 mEq/l (22.0-26.0); Methemoglobin ABG 0.3 %THb (0-1.5); Oxygen Content ABG 17.2 %vol (16.0-22.0); Oxygen Saturation ABG 98.9 % (95.0-100.0); Oxyhemoglobin 97.7 % THb (90.0-100.0); PCO2 ABG 38.2 mmHg (35.0-45.0); PO2 ABG 148.9 mmHg (80.0-100.0); PO2 FiO2 Ratio Arterial Blood 1.49 %; Reduced Hemoglobin 1.7 %THb (0-5.0); Total Hemoglobin 12.3 g/dL (12.0-18.0); pH ABG 7.411 (7.350-7.450)
[2019-10-15] MEDS: hetaSTARCH 6%/NACL 500 ML 250 ML IV CONT ×2 (15:10→21:44)
[2019-10-15] MEDS: LACTATED RINGERS 1,000 ML 60 ML IV CONT (15:10)
[2019-10-15 15:14] LABS: Device VENTILATOR; Site Drawn LEFT BRACHIAL
[2019-10-15 15:16] LABS: Arterial Blood Gas PEEP 5 cmH2O; Arterial Blood Gas Vent Mode CMV; Arterial Blood Gas Ventilator rate 18 /MIN
[2019-10-15 15:17] LABS: Arterial Blood Gas Tidal Volume 500 ml
--- NOTE | 2019-10-15 15:25 | WPDPROCEDUR ---
Procedures Intubation Intubation Date: 10/15/19 A pre-procedural Time-Out was completed immediately before starting the procedure and confirmed: Patient Identification, Site, Procedure, Patient Position and the Availability of Requisite Equipment: Yes Sedative: etomidate Paralytic: rocuronium Laryngoscope: fiber optic video scope Assist device used: fiber optic device ET tube size: 8 Tube secured depth (cm): 25 Tube secured location: lips Tube placement confirmation: visualized tube passing through cords, equal breath sounds bilaterally, no breath sounds over epigastrium and confirmation by capnometry Patient tolerated procedure: well and no complications Intubation complications: none Additional comments: After obtaining consent from the and explaining the rationale for intubation. it was decided to go ahead and intubate the patient. The patient was lying in the supine position. Preoxygenation via BVM was provided for a minimum of 3 minutes. The patient had continuous cardiac as well as pulse oximetry monitoring during the procedure. Rapid sequence induction was provided by administration of Etomidate and Rocuronium. A Glidescope blade 4 was used to directly visualize the vocal cords. A 8 mm endotracheal tube was visualized advancing between the cords to a level of 25 cm at the lip. The stylette was then removed. Tube placement was also noted by fogging in the tube, equal and bilateral breath sounds, no sounds over the epigastrium, and end-tidal colorimetric monitoring. The cuff was then inflated with 10 ml of air and the tube secured using a commercially available device. A good pulse oximetry wave form was seen on the monitor throughout the procedure. The patient was then connected to the ventilator at a tidal volume of 500 ml; rate of 18; FiO2 of 100%; and PEEP of 5. A portable chest x-ray has been ordered for placement. Continued sedation will be provided by Fentanyl and Versed continuous infusion titrated to a RASS of -2. The patient tolerated the procedure well.
[2019-10-15 15:46] LABS: Ammonia < 9 umol/L (9-30)
--- NOTE | 2019-10-15 15:50 | PCSTNOTE ---
BSS could not be completed due to medical status; patient has been intubated; will reassess when patient's condition improves
--- NOTE | 2019-10-15 15:56 | PC.NURSE ---
Upon assessment Pt lung sounds were coarse. notified Araceli Tom she ordered Lasix and a stat chest xray. pt O2 SATS 90'S. I applied condom catheter Patient voided 600ml of dark manny urine. Notified Dr Burk of patients status and coarse lung sounds. pT O2 SATS AT 12:34 were in the 80's. notified respiratory and Dr Burk. Dr Burk notified Dr. Jin and decided to move Pt to ICU for a higher level of care.
--- NOTE | 2019-10-15 16:44 | PM.IMPN ---
Progress Note: A&P Assessment and Plan (1) Gallbladder abscess: Code(s): K81.0 - Acute cholecystitis Status: Acute Assessment and Plan: 10/15/19 16:44 A drain was placed per Interventional Radiology. And surgery has been consulted. ecoli seen in his cultures. Patient is on impenem Add nitrofurantoin Patient is 69-year-old male with long history of alcohol abuse he presented emergency department with abdominal pain his found to have abscess along his gallbladder patient was seen by general surgery patient is not a candidate surgical intervention at the present time and interventional radiologist placed a drain which is draining bile and what appears to be poor on discharge, the abscess culture is growing E coli sensitive to imipenem similarly urine culture is growing E coli with ESBL sensitive to imipenem, is seen by Dr. jett continue to imipenem, patient also has a history of atrial fibrillation now in RVR was started on Amio drip seen by yield engineer and switch him over to oral diltiazem rate is trending down, patient complains of abdominal pain denies any fever or chills. on 10/[address]-guided drainage of the gallbladder abscess, today again patient had a ultrasound-guided drainage of abdominal wall abscess, patient is seen by Dr. jett recommended to continue current management, on 10/13 patient was more congested and slightly short of breath chest x-ray showed pleural effusion a low-dose of IV Lasix 20 mg was given to help diurese and stop IV fluid, today went to see the patient he appeared more distress and impending respiratory failure, talked to the recreation counselor who came and examined the patient patient was transfer to ICU and was intubated. Patient being diuresed (2) COPD (chronic obstructive pulmonary disease): Code(s): J44.9 - Chronic obstructive pulmonary disease, unspecified Status: Chronic Assessment and Plan: restart breathing treatments (3) BPH (benign prostatic hyperplasia): Code(s): N40.0 - Benign prostatic hyperplasia without lower urinary tract symptoms Status: Chronic Assessment and Plan: Terazosin on hold at this time. (4) Septic shock: Code(s): A41.9 - Sepsis, unspecified organism; R65.21 - Severe sepsis with septic shock Status: Chronic Assessment and Plan: Continue iv fluids and iv impenem, cut back iv fluids (5) Acute UTI: Code(s): N39.0 - Urinary tract infection, site not specified Status: Acute Assessment and Plan: Pt is found to have ESBL in his urine add nitrofurantoin for coverage and ecoli in his cultures. (6) Sepsis: Code(s): A41.9 - Sepsis, unspecified organism Status: Acute Assessment and Plan: Pt is on iv fluids and IV abx seen by DR Surgery team ABX changed (7) Afib: Qualifiers: Atrial fibrillation type: unspecified Qualified Code(s): I48.91 - Unspecified atrial fibrillation Code(s): I48.91 - Unspecified atrial fibrillation Status: Acute Assessment and Plan: pT had amiodarone drip last night for fast AF. Plan is above (8) CHF (congestive heart failure): Qualifiers: Heart failure type: systolic Heart failure chronicity: chronic Qualified Code(s): I50.22 - Chronic systolic (congestive) heart failure Code(s): I50.9 - Heart failure, unspecified Status: Chronic Assessment and Plan: pt is on coreg Subjective Date/time seen: 10/15/19 16:44 A drain was placed per Interventional Radiology. And surgery has been consulted. ecoli seen in his cultures. Patient is on impenem Add nitrofurantoin Patient is 69-year-old male with long history of alcohol abuse he presented emergency department with abdominal pain his found to have abscess along his gallbladder patient was seen by general surgery patient is not a candidate surgical intervention at the present time and interventional radiologist placed a drain which is ector
[2019-10-15] MEDS: BISACODYL 10 MG SUPPOSITORY RECTAL (18:58)
[2019-10-16] VITALS (44 sets, daily range): BP systolic 79–125; BP diastolic 46–80; PULSE 98–133; RESP 18–26; TEMP 36.6–37.2; O2SAT 92–100; BMI 36.8
[2019-10-16] MEDS: NITROFURANTOIN MACROCRYSTALS 50 MG CAP PO ×5 (00:24→22:25)
[2019-10-16] MEDS: TIMOLOL MALEATE 0.5% OP SOLN 5 ML BTL 1 DROP EACH EYE ×3 (00:24→22:25)
[2019-10-16] MEDS: IPRATROPIUM BR 0.02% INH SOLN 0.5 MG/2.5 ML VIAL INHALATION ×4 (01:25→19:37)
[2019-10-16] MEDS: METOPROLOL TARTRATE INJ 5 MG/5 ML VIAL IV PUSH ×3 (02:00→08:42)
[2019-10-16 04:24] LABS: Alveolar/Arterial O2 Gradient 301.9 mmHg; Base Excess ABG -0.3 mEq/l (+/-2.0); Carboxyhemoglobin 0.2 % THb (0-2.0); Fractional Inspired Oxygen 60 %; HCO3 ABG 22.2 mEq/l (22.0-26.0); Methemoglobin ABG 0.4 %THb (0-1.5); Oxygen Content ABG 13.9 %vol (16.0-22.0); Oxygen Saturation ABG 97.8 % (95.0-100.0); PCO2 ABG 29.1 mmHg (35.0-45.0); PO2 ABG 93.9 mmHg (80.0-100.0); PO2 FiO2 Ratio Arterial Blood 1.57 %; Reduced Hemoglobin 3.4 %THb (0-5.0); Total Hemoglobin 10.2 g/dL (12.0-18.0); pH ABG 7.501 (7.350-7.450)
[2019-10-16 04:25] LABS: Arterial Blood Gas Ventilator rate 18 /MIN; Device VENTILATOR; Modified Allen's Test Pass; Site Drawn RIGHT RADIAL
[2019-10-16 04:26] LABS: Arterial Blood Gas PEEP 5 cmH2O; Arterial Blood Gas Pressure Support 0 cmH2O; Arterial Blood Gas Tidal Volume 500 ml; Arterial Blood Gas Vent Mode CMV
[2019-10-16 04:35] LABS: Basophils Percent Auto 0.2 % (0.2-1.2); Eosinophils Percent Auto 0.2 % (0-4.4); Hematocrit 28.9 % (42.0-52.0); Hemoglobin 9.4 g/dL (14.0-18.0); Immature Granulocyte Percent A 0.9 % (0-0.5); Lymphocytes Absolute Auto 1.08 K/mm3 (0.9-3.2); Lymphocytes Percent Auto 9.8 % (18.3-44.2); Mean Corpuscular HGB Conc 32.5 g/dl (32-36); Mean Corpuscular Hemoglobin 30.7 pg (26-34); Mean Corpuscular Volume 94.4 fl (80-100); Mean Platelet Volume 9.6 fl (7.4-10.4); Monocytes Absolute Auto 0.4 K/mm3 (0.1-0.6); Monocytes Percent Auto 3.2 % (2.6-8.5); Neutrophils Absolute Auto 9.4 K/mm3 (1.3-6.7); Neutrophils Percent Auto 85.7 % (45.5-73.1); Platelet Count Result 216 k/mm3 (150-375); Red Blood Count 3.06 M/mm3 (4.6-6.20)
[2019-10-16 04:44] LABS: Lactic Acid 0.9 mmol/L (0.7-2.1)
[2019-10-16 04:45] LABS: Alanine Aminotransferase 7 U/L (4-50); Albumin Level 1.6 g/dL (3.5-5.1); Alkaline Phosphatase 153 U/L (38-126); Aspartate Amino Transferase 16 U/L (17-59); Bilirubin,Total 0.3 mg/dL (0.2-1.3); Blood Urea Nitrogen 8 mg/dL (9-20); Calcium 7.3 mg/dL (8.4-10.2); Carbon Dioxide 27 mmol/L (22-30); Chloride 102 mmol/L (98-107); Estimated CRCL calculation 128 ml/min; Estimated Glomerular Filt Rate > 60; Glucose 83 mg/dL (75-110); Magnesium 1.8 mg/dL (1.6-2.3); Potassium 3.3 mmol/L (3.4-5.0); Sodium 133 mmol/L (137-145)
[2019-10-16] MEDS: CENTRAL LINE FLUSH 10 ML IV PUSH ×4 (06:35→22:26)
[2019-10-16] MEDS: LACTATED RINGERS 1,000 ML 60 ML IV CONT ×2 (06:35→10:29)
--- NOTE | 2019-10-16 07:30 | PCPTNOTE ---
Patient transferred to ICU due to change in medical status. PT will await new orders to resume PT.
[2019-10-16] MEDS: DORNASE ALFA INH SOLN 1 MG/ML 2.5 ML AMP 2.5 MG INHALATION ×2 (08:27→19:39)
[2019-10-16] MEDS: ENOXAPARIN 40 MG/0.4 ML SYRINGE SUB-Q (08:39)
[2019-10-16] MEDS: polyethylene glycoL 3350 17 GM POWD.PACK PO (08:39)
[2019-10-16] MEDS: MULTIVITAMINS THERAPEUTIC TAB (*BKC) 1 TABLET PO (08:39)
[2019-10-16] MEDS: PANTOPRAZOLE SODIUM IV 40 MG VIAL IV PUSH (08:40)
[2019-10-16] MEDS: THIAMINE HCL 100 MG TABLET PO (08:40)
[2019-10-16] MEDS: BISACODYL 10 MG SUPPOSITORY RECTAL (08:42)
[2019-10-16] MEDS: FOLIC ACID 1 MG TABLET PO (08:42)
[2019-10-16] MEDS: ASPIRIN 300 MG SUPPOSITORY RECTAL (08:43)
--- NOTE | 2019-10-16 09:37 | WPDINTPN ---
Progress Note: A&P Assessment and Plan (1) Acute respiratory failure: Qualifiers: Respiratory failure complication: hypoxia Qualified Code(s): J96.01 - Acute respiratory failure with hypoxia Code(s): J96.00 - Acute respiratory failure, unspecified whether with hypoxia or hypercapnia Status: Acute Assessment and Plan: Patient seen in the IMU was found to be in impending respiratory failure with gurgling respirations and chest congestion. Discussed with spouse with Dinorah, who was agreeable for intubation. -patient was successfully intubated in the ICU on 10/15/2019 -placed on CMV mode of ventilation, peep of 500% FiO2. -chest x-ray and ABGs reviewed, ventilator adjusted -sedation with fentanyl and Versed infusion, maintain RASS of 0 to -2, -sputum cultures have been obtained and pending -patient is on Pulmozyme for thick secretions (2) Acute encephalopathy: Code(s): G93.40 - Encephalopathy, unspecified Status: Acute Assessment and Plan: Patient was in the intermediate unit and was found to be in acute encephalopathy, obtunded, responding to deep pain stimulus. -likely due to hypoxia, possible liver dysfunction, severe sepsis -ammonia levels are normal -patient on sedation but opens his eyes and follows simple commands in all extremities (3) Gallbladder abscess: Code(s): K81.0 - Acute cholecystitis Status: Acute Assessment and Plan: Patient has 2 cholecystotomy tubes, 1 of them with isma purulent drainage Surgery service has been following him. Abscess culture growing ESBL E coli, infectious disease following the patient, patient on imipenem (4) Essential hypertension: Code(s): I10 - Essential (primary) hypertension Status: Chronic Assessment and Plan: Patient on metoprolol IV as he is NPO secondary to ileus/small-bowel obstruction -patient currently hypotensive, will hold all antihypertensive (5) COPD (chronic obstructive pulmonary disease): Code(s): J44.9 - Chronic obstructive pulmonary disease, unspecified Status: Chronic Assessment and Plan: Continue bronchodilators (6) Afib: Qualifiers: Atrial fibrillation type: unspecified Qualified Code(s): I48.91 - Unspecified atrial fibrillation Code(s): I48.91 - Unspecified atrial fibrillation Status: Acute Assessment and Plan: AFib RVR metoprolol IV and aspirin 325 mg suppository as he is NPO -if patient gets hypotensive will start amiodarone (7) Chronic alcohol use: Code(s): Z72.89 - Other problems related to lifestyle Status: Chronic Assessment and Plan: Patient has had alcohol dependence. Thiamine and folate. (8) CHF (congestive heart failure): Qualifiers: Heart failure type: systolic Heart failure chronicity: chronic Qualified Code(s): I50.22 - Chronic systolic (congestive) heart failure Code(s): I50.9 - Heart failure, unspecified Status: Chronic Assessment and Plan: LV systolic function mildly reduced, EF 45-50%. Mild mitral valve regurg, biatrial dilatation -chest x-ray shows possible pulmonary edema versus pneumonia (9) GERD (gastroesophageal reflux disease): Qualifiers: Esophagitis presence: esophagitis presence not specified Qualified Code(s): K21.9 - Gastro-esophageal reflux disease without esophagitis Code(s): K21.9 - Gastro-esophageal reflux disease without esophagitis Status: Chronic Assessment and Plan: Continue IV Protonix (10) Ileus: Code(s): K56.7 - Ileus, unspecified Status: Acute Assessment and Plan: Hypoactive bowel sounds, dilated small bowel on CT scan of the abdomen. -the following the patient, suppositories has been ordered -will discuss with surgery regarding trickle tube feeds Additional Plan Discussed with spouse, Dinorah, updated with patient's condition and plan of care. She is aware that patient intubated
--- NOTE | 2019-10-16 11:02 | PCNSR ---
On 10/15/19, the student, Gregg Rogers, provided care and completed [facility] documentation on this patient. I have reviewed the student's documentation and agree with the findings.
--- NOTE | 2019-10-16 11:31 | PCDIET ---
Nutrition Follow-Up Complete: Nutrition Diagnosis: Inadequate oral intake related to multiple medical issues as evidenced by NPO diet, previous meal refusals on advanced diet. Nutrition Goal: Patient to meet estimated needs Goal in progress. MD to discuss trickle feedings vs. TPN with surgery. If trickle feedings initiated, recommend Vital 1.5 at 10-15mL/hr. Once able to advance, goal rate of 60mL/hr would provide 1980kcal, 89g protein and 1008mL free water over 22hrs/day. If unable to initiate enteral feedings or duration of trickle feedings anticipated to be greater than 2-3 days, recommend Clinimix E 5/15 at 40mL/hr with 250mL 20% lipids for 1182kcal and 48g protein. If tolerated, advance by 20mL/hr daily to goal of 80mL/hr for 1863kcal and 96g protein daily. Last recorded weight is 116.5 kg which is stable. Bowel Motility: No BM documented. Labs Reviewed: Hgb (9.4), Hct (28.9), K (3.3), Na (133), Alb (1.6), Jessica Ca (9.22) Meds Noted: Albumin, Primaxin, Versed, Miralax, Fentanyl, Atrovent, MVI, KCl, Thiamine, Folic Acid, LR at 60mL/hr, Protonix, Lasix Additional Notes: Coccyx with preventative Mepilex. Abdomen with drains. MD plans to stop IVFs if TPN initiated. Nutrition Monitoring and Evaluation: Follow up every Saturday/Saturday. Follow daily in ICU rounds.
[2019-10-16] MEDS: ALBUMIN HUMAN 25% 12.5 GM/50ML 50 ML IVPB ×2 (12:04→17:24)
--- NOTE | 2019-10-16 12:24 | PM.PNGS ---
Progress Note: A&P Assessment and Plan (1) Gallbladder abscess: Code(s): K81.0 - Acute cholecystitis Status: Acute Assessment and Plan: continue drains and antibiotics (2) Sepsis: Code(s): A41.9 - Sepsis, unspecified organism Status: Acute Assessment and Plan: no pressor requirements at this time, continue antibiotics, continue drains, will repeat CT scan next week for further evaluation (3) Ileus: Code(s): K56.7 - Ileus, unspecified Status: Acute Assessment and Plan: abdominal exam benign, will start trophic tube feeds (4) Acute respiratory failure: Qualifiers: Respiratory failure complication: hypoxia Qualified Code(s): J96.01 - Acute respiratory failure with hypoxia Code(s): J96.00 - Acute respiratory failure, unspecified whether with hypoxia or hypercapnia Status: Acute Assessment and Plan: management per critical care team Subjective Subjective Date/Time Seen: 10/16/19 12:24 patient intubated yesterday secondary to increased respiratory distress, patient now in the ICU, has not required any further pressors at this time Review of Systems Review of Systems: ROS unobtainable: Yes unobtainable due to endotracheal tube Exam Resp: Auscultation: crackles and diminished lung sounds Cardio: Rate: tachycardic GI: Other: S, sl dist, drains x 2 c purulent discharge Objective Data Vital Signs Vital Signs: Vital Signs - 24 hr 10/15/19 13:15 10/15/19 13:33 10/15/19 13:45 Temperature Pulse Rate 118 H 115 H 118 H Respiratory Rate 18 18 Blood Pressure Pulse Oximetry 100 10/15/19 14:00 10/15/19 14:10 10/15/19 14:12 Temperature Pulse Rate 124 H 121 H 113 H Respiratory Rate 18 18 Blood Pressure Pulse Oximetry 10/15/19 14:23 10/15/19 14:25 10/15/19 16:00 Temperature 35.7 C L Pulse Rate 126 H 120 H 112 H Respiratory Rate 20 20 18 Blood Pressure 86/71 L Pulse Oximetry 98 10/15/19 16:49 10/15/19 18:00 10/15/19 18:01 Temperature 36.4 C L Pulse Rate 114 H 106 H 106 H Respiratory Rate 18 Blood Pressure 85/72 L Pulse Oximetry 100 99 10/15/19 19:15 10/15/19 19:27 10/15/19 19:33 Temperature Pulse Rate 60 112 H 112 H Respiratory Rate 20 18 Blood Pressure 83/62 L Pulse Oximetry 94 100 10/15/19 19:39 10/15/19 20:00 10/15/19 21:00 Temperature 36.7 C 36.9 C Pulse Rate 108 H 59 L 121 H Respiratory Rate 18 20 18 Blood Pressure 83/62 L 85/64 L Pulse Oximetry 99 100 10/15/19 22:00 10/15/19 23:08 10/16/19 00:00 Temperature 36.8 C 36.8 C Pulse Rate 106 H 119 H 112 H Respiratory Rate 18 18 Blood Pressure 103/73 101/71 Pulse Oximetry 100 100 10/16/19 00:23 10/16/19 01:21 10/16/19 01:27 Temperature Pulse Rate 112 H 119 H 106 H Respiratory Rate 18 Blood Pressure Pulse Oximetry 100 10/16/19 01:37 10/16/19 02:00 10/16/19 04:00 Temperature 37.0 C 37.0 C Pulse Rate 112 H 112 H 119 H Respiratory Rate 18 18 18 Blood Pressure 102/80 98/71 L Pulse Oximetry 99 100 10/16/19 04:10 10/16/19 05:32 10/16/19 06:00 Temperature 37.2 C Pulse Rate 126 H 124 H 106 H Respiratory Rate 18 Blood Pressure 96/68 L Pulse Oximetry 100 100 99 10/16/19 06:34 10/16/19 08:00 10/16/19 08:15 Temperature 36.9 C Pulse Rate 116 H 109 H 131 H Respiratory Rate 19 24 H Blood Pressure 91/46 L Pulse Oximetry 92 10/16/19 08:25 10/16/19 08:26 10/16/19 08:30 Temperature Pulse Rate 133 H 131 H 130 H Respiratory Rate 21 H 18 Blood Pressure Pulse Oximetry 100 10/16/19 08:42 10/16/19 09:19 10/16/19 10:00 Temperature Pulse Rate 128 H 126 H 126 H Respiratory Rate 18 18 Blood Pressure 81/64 L Pulse Oximetry 98 10/16/19 12:16 Temperature Pulse Rate 116 H Respiratory Rate Blood Pressure Pulse Oximetry Intake/Output Intake/Output: Intake & Output 10/13/19 10/14/19 10/15/1910/20 23:59 23:59 23
--- NOTE | 2019-10-16 13:36 | WPDINFPN2 ---
Progress Note: A&P Assessment and Plan (1) Gallbladder abscess: Code(s): K81.0 - Acute cholecystitis Status: Acute Assessment and Plan: 1. Acute cholecystitis with abscess, MDRO isolated. [address] 2. Dysphagia, suspect swallowing dysfunction due to debility and muscle deconditioning. 3. Respiratory distress with lung infiltrates, possible ARDS due to #1. REC Imipenem # 7, continue at least 4 days more. Sputum culture in process. No dose adjustments needed, renal clearance aceptable Subjective Date/time seen: 10/16/19 13:36 Interval history: intubated and sedated Exam Narrative: Exam Narrative: afebrile no pressors Const: General: no acute distress Resp: Effort & Inspection: normal respiratory effort Auscultation: clear to auscultation bilaterally and diminished lung sounds Cardio: Rate: tachycardic Rhythm: regular rhythm Heart sounds: no murmurs GI: Inspection: distended GI Palp: Yes Soft to palpation and No Guarding due to palpation present (GI) Percussion: Yes tympanic to percussion Auscultation: abnormal bowel sounds Urinary Catheter: Urinary Catheter: patent and draining and urine clear Skin: General skin exam: no rashes or lesions noted Extrem: General: edema Objective Data Vital Signs Vital Signs: Vital Signs - 24 hr 10/15/19 13:45 10/15/19 14:00 10/15/19 14:10 Temperature Pulse Rate 118 H 124 H 121 H Respiratory Rate 18 18 Blood Pressure Pulse Oximetry 10/15/19 14:12 10/15/19 14:23 10/15/19 14:25 Temperature Pulse Rate 113 H 126 H 120 H Respiratory Rate 18 20 20 Blood Pressure Pulse Oximetry 10/15/19 16:00 10/15/19 16:49 10/15/19 18:00 Temperature 35.7 C L Pulse Rate 112 H 114 H 106 H Respiratory Rate 18 Blood Pressure 86/71 L Pulse Oximetry 98 100 10/15/19 18:01 10/15/19 19:15 10/15/19 19:27 Temperature 36.4 C L Pulse Rate 106 H 60 112 H Respiratory Rate 18 20 Blood Pressure 85/72 L 83/62 L Pulse Oximetry 99 94 100 10/15/19 19:33 10/15/19 19:39 10/15/19 20:00 Temperature 36.7 C Pulse Rate 112 H 108 H 59 L Respiratory Rate 18 18 20 Blood Pressure 83/62 L Pulse Oximetry 99 10/15/19 21:00 10/15/19 22:00 10/15/19 23:08 Temperature 36.9 C 36.8 C Pulse Rate 121 H 106 H 119 H Respiratory Rate 18 18 Blood Pressure 85/64 L 103/73 Pulse Oximetry 100 100 10/16/19 00:00 10/16/19 00:23 10/16/19 01:21 Temperature 36.8 C Pulse Rate 112 H 112 H 119 H Respiratory Rate 18 Blood Pressure 101/71 Pulse Oximetry 100 100 10/16/19 01:27 10/16/19 01:37 10/16/19 02:00 Temperature 37.0 C Pulse Rate 106 H 112 H 112 H Respiratory Rate 18 18 18 Blood Pressure 102/80 Pulse Oximetry 99 10/16/19 04:00 10/16/19 04:10 10/16/19 05:32 Temperature 37.0 C Pulse Rate 119 H 126 H 124 H Respiratory Rate 18 Blood Pressure 98/71 L Pulse Oximetry 100 100 100 10/16/19 06:00 10/16/19 06:34 10/16/19 08:00 Temperature 37.2 C 36.9 C Pulse Rate 106 H 116 H 109 H Respiratory Rate 18 19 Blood Pressure 96/68 L 91/46 L Pulse Oximetry 99 92 10/16/19 08:15 10/16/19 08:25 10/16/19 08:26 Temperature Pulse Rate 131 H 133 H 131 H Respiratory Rate 24 H 21 H Blood Pressure Pulse Oximetry 100 10/16/19 08:30 10/16/19 08:42 10/16/19 09:19 Temperature Pulse Rate 130 H 128 H 126 H Respiratory Rate 18 18 Blood Pressure Pulse Oximetry 10/16/19 10:00 10/16/19 12:00 10/16/19 12:01 Temperature 36.6 C Pulse Rate 116 H 118 H 115 H Respiratory Rate 26 H 20 18 Blood Pressure 81/64 L 79/59 L Pulse Oximetry 98 99 99 10/16/19 12:15 10/16/19 12:16 10/16/19 12:25 Temperature 36.6 C 36.6 C Pulse Rate 117 H 120 H 122 H Respiratory Rate 18 18 26 H Blood Pressure 81/52 L Pulse Oximetry 10/16/19 12:27 Temperature Pulse Rate 112 H Respiratory Rate 20 Blood Pressure Pulse Oximetry Intake/Output Intake/Output: Intake & Output 10/13/19
--- NOTE | 2019-10-16 14:41 | PM.PNCARD ---
Progress Note: A&P Assessment and Plan (1) Afib: Qualifiers: Atrial fibrillation type: unspecified Qualified Code(s): I48.91 - Unspecified atrial fibrillation Code(s): I48.91 - Unspecified atrial fibrillation Status: Acute Assessment and Plan: Of unknown duration when first seen in July of this year. At that time he was difficult to control. Was on a significant dose of diltiazem along with carvedilol. Admitted with abdominal pain and elevated heart rates. Due to his mild LV dysfunction (EF 45-50% 07/27/2019) beta edmund is being used. Heart rates 115-120 Becomes hypotensive with IVP metoprolol. Changed to Metoprolol 12.5 mg q 12 hours per OG tube. Not a candidate for anticoagulation due to his alcohol abuse and reported falling. Continue aspirin 325 mg. Change to OG tube Additional Plan Intubated 10/15/2019 due to respiratory failure Management by machine heel sprayer Plan discussed with Dr Monahan [id number] 10/16/2019 Subjective Date/time seen: 10/16/19 14:41 Interval history: Follow-up for: Atrial fibrillation with rapid ventricular response, mild LV dysfunction, history hypertension Date of service: 10/16/2019 Subjective: Intubated and sedated. Review of Systems Review of Systems: ROS unobtainable: Yes unobtainable due to endotracheal tube Exam Const: Other: Intubated and sedated HENMT: Mouth: Yes dry mucous membranes Eyes: Sclera: sclerae normal Pupils: Equal, round and reactive pupils present Neck: Neck: supple Resp: Effort & Inspection: other (Intubated and sedated) Auscultation: clear to auscultation bilaterally Other: Suction yellow secretions. Copious amount of oral secretions Cardio: Rate: tachycardic Rhythm: abnormal rhythm irregularly irregular Heart sounds: no murmurs GI: Inspection: other (abdomen not as distended. Starting tube feedings) Auscultation: Hypoactive bowel sounds present Other: Pigtail drain x2. Purulence drainage. Urinary Catheter: Urinary Catheter: patent and draining and urine dark Skin: General skin exam: normal color Neuro: Cranial nerves: Yes Equal, round and reactive pupils present Cognition (Neuro): abnormal cognition Other: sedated Extrem: General: normal to inspection and no edema Other: 1+ lower extremity edema adequate distal pulses. Feet are warm. Hands are cool. Psych: Appearance: other (Intubated and sedated) Objective Data Vital Signs Vital Signs: Vital Signs - 24 hr 10/15/19 16:00 10/15/19 16:49 10/15/19 18:00 Temperature 35.7 C L Pulse Rate 112 H 114 H 106 H Respiratory Rate 18 Blood Pressure 86/71 L Pulse Oximetry 98 100 10/15/19 18:01 10/15/19 19:15 10/15/19 19:27 Temperature 36.4 C L Pulse Rate 106 H 60 112 H Respiratory Rate 18 20 Blood Pressure 85/72 L 83/62 L Pulse Oximetry 99 94 100 10/15/19 19:33 10/15/19 19:39 10/15/19 20:00 Temperature 36.7 C Pulse Rate 112 H 108 H 59 L Respiratory Rate 18 18 20 Blood Pressure 83/62 L Pulse Oximetry 99 10/15/19 21:00 10/15/19 22:00 10/15/19 23:08 Temperature 36.9 C 36.8 C Pulse Rate 121 H 106 H 119 H Respiratory Rate 18 18 Blood Pressure 85/64 L 103/73 Pulse Oximetry 100 100 10/16/19 00:00 10/16/19 00:23 10/16/19 01:21 Temperature 36.8 C Pulse Rate 112 H 112 H 119 H Respiratory Rate 18 Blood Pressure 101/71 Pulse Oximetry 100 100 10/16/19 01:27 10/16/19 01:37 10/16/19 02:00 Temperature 37.0 C Pulse Rate 106 H 112 H 112 H Respiratory Rate 18 18 18 Blood Pressure 102/80 Pulse Oximetry 99 10/16/19 04:00 10/16/19 04:10 10/16/19 05:32 Temperature 37.0 C Pulse Rate 119 H 126 H 124 H Respiratory Rate 18 Blood Pressure 98/71 L Pulse Oximetry 100 100 100 10/16/19 06:00 10/16/19 06:34 10/16/19 08:00 Temperature 37.2 C 36.9 C Pulse Rate 106 H 116 H 109 H Respiratory Rate 18 19 Blood Pressure 96/68 L 91/46 L Pulse Oximetry 99 92 10/16/19 08:15 10/16/19 08:25 10/16/19 08:26 Temper
[2019-10-16] MEDS: METOPROLOL TARTRATE 12.5 MG TABLET PO ×2 (14:45→22:25)
--- NOTE | 2019-10-16 17:24 | PM.IMPN ---
Progress Note: A&P Assessment and Plan (1) Gallbladder abscess: Code(s): K81.0 - Acute cholecystitis Status: Acute Assessment and Plan: 10/16/19 17:24 A drain was placed per Interventional Radiology. And surgery has been consulted. ecoli seen in his cultures. Patient is on impenem Add nitrofurantoin Patient is 69-year-old male with long history of alcohol abuse he presented emergency department with abdominal pain his found to have abscess along his gallbladder patient was seen by general surgery patient is not a candidate surgical intervention at the present time and interventional radiologist placed a drain which is draining bile and what appears to be poor on discharge, the abscess culture is growing E coli sensitive to imipenem similarly urine culture is growing E coli with ESBL sensitive to imipenem, is seen by Dr. jett continue to imipenem, patient also has a history of atrial fibrillation now in RVR was started on Amio drip seen by toys and games hand finisher and switch him over to oral diltiazem rate is trending down, patient complains of abdominal pain denies any fever or chills. on 10/[address]-guided drainage of the gallbladder abscess, today again patient had a ultrasound-guided drainage of abdominal wall abscess, patient is seen by Dr. jett recommended to continue current management, on 10/13 patient was more congested and slightly short of breath chest x-ray showed pleural effusion a low-dose of IV Lasix 20 mg was given to help diurese and stop IV fluid, today went to see the patient he appeared more distress and impending respiratory failure, talked to the residential specialist who came and examined the patient patient was transfer to ICU and was intubated. Patient being diuresed, Patient is more awake today was seen by his surgeon recommend to [facility]. (2) COPD (chronic obstructive pulmonary disease): Code(s): J44.9 - Chronic obstructive pulmonary disease, unspecified Status: Chronic Assessment and Plan: restart breathing treatments (3) BPH (benign prostatic hyperplasia): Code(s): N40.0 - Benign prostatic hyperplasia without lower urinary tract symptoms Status: Chronic Assessment and Plan: Terazosin on hold at this time. (4) Septic shock: Code(s): A41.9 - Sepsis, unspecified organism; R65.21 - Severe sepsis with septic shock Status: Chronic Assessment and Plan: Continue iv fluids and iv impenem, cut back iv fluids (5) Acute UTI: Code(s): N39.0 - Urinary tract infection, site not specified Status: Acute Assessment and Plan: Pt is found to have ESBL in his urine add nitrofurantoin for coverage and ecoli in his cultures. (6) Sepsis: Code(s): A41.9 - Sepsis, unspecified organism Status: Acute Assessment and Plan: Pt is on iv fluids and IV abx seen by DR Surgery team ABX changed (7) Afib: Qualifiers: Atrial fibrillation type: unspecified Qualified Code(s): I48.91 - Unspecified atrial fibrillation Code(s): I48.91 - Unspecified atrial fibrillation Status: Acute Assessment and Plan: pT had amiodarone drip last night for fast AF. Plan is above (8) CHF (congestive heart failure): Qualifiers: Heart failure type: systolic Heart failure chronicity: chronic Qualified Code(s): I50.22 - Chronic systolic (congestive) heart failure Code(s): I50.9 - Heart failure, unspecified Status: Chronic Assessment and Plan: pt is on coreg Subjective Date/time seen: 10/16/19 17:24 A drain was placed per Interventional Radiology. And surgery has been consulted. ecoli seen in his cultures. Patient is on impenem Add nitrofurantoin Patient is 69-year-old male with long history of alcohol abuse he presented emergency department with abdominal pain his found to have abscess along his gallbladder patient was seen by general surgery patient is not a candidate surgical intervention at the [facility]
[2019-10-16] MEDS: DEXTROSE 50% 25 GM/50 ML SYRINGE IV PUSH (17:29)
[2019-10-16 17:36] LABS: Glucose Point of Care 76 (65-105)
[2019-10-16 17:36] LABS: Glucose Point of Care 61 (65-105)
--- NOTE | 2019-10-16 21:00 | PC.NURSE ---
URINE OUTPUT CHARTED FOR NURY TA RN FOR 1700 I&O.
[2019-10-17] VITALS (35 sets, daily range): BP systolic 81–112; BP diastolic 53–89; PULSE 97–125; RESP 15–19; TEMP 36.7–37.3; O2SAT 63–100
[2019-10-17 00:39] LABS: Glucose Point of Care 82 (65-105)
[2019-10-17] MEDS: ALBUMIN HUMAN 25% 12.5 GM/50ML 50 ML IVPB ×2 (01:00→06:51)
[2019-10-17] MEDS: IPRATROPIUM BR 0.02% INH SOLN 0.5 MG/2.5 ML VIAL INHALATION ×4 (01:46→20:48)
[2019-10-17] MEDS: LACTATED RINGERS 1,000 ML 60 ML IV CONT (02:12)
--- NOTE | 2019-10-17 03:41 | PC.NURSE ---
10/17/19 at 0330.........Dressing changed to RT IJ CVL using sterile technique. Site is without erythema or drainage. Antimicrobial disc applied and tegaderm applied.
[2019-10-17 04:28] LABS: Alveolar/Arterial O2 Gradient 212.1 mmHg; Base Excess ABG 2.1 mEq/l (+/-2.0); Carboxyhemoglobin 0.2 % THb (0-2.0); Fractional Inspired Oxygen 50 %; HCO3 ABG 25.7 mEq/l (22.0-26.0); Methemoglobin ABG 0.6 %THb (0-1.5); Oxygen Content ABG 13.1 %vol (16.0-22.0); Oxygen Saturation ABG 98.1 % (95.0-100.0); PO2 ABG 103.9 mmHg (80.0-100.0); PO2 FiO2 Ratio Arterial Blood 2.08 %; Reduced Hemoglobin 3.2 %THb (0-5.0); Total Hemoglobin 9.6 g/dL (12.0-18.0); pH ABG 7.472 (7.350-7.450)
[2019-10-17 04:29] LABS: Arterial Blood Gas PEEP 5 cmH2O; Arterial Blood Gas Vent Mode CMV; Arterial Blood Gas Ventilator rate 18 /MIN; Device VENTILATOR; Modified Allen's Test Unable to perform; Site Drawn RIGHT RADIAL
[2019-10-17 04:30] LABS: Arterial Blood Gas Tidal Volume 450 ml
[2019-10-17 05:37] LABS: Basophils Percent Auto 0.1 % (0.2-1.2); Eosinophils Absolute Auto 0.1 K/mm3 (0-0.3); Eosinophils Percent Auto 0.5 % (0-4.4); Hematocrit 27.2 % (42.0-52.0); Hemoglobin 8.9 g/dL (14.0-18.0); Immature Granulocyte Absolute 0.08 K/mm3 (0.00-0.031); Immature Granulocyte Percent A 0.7 % (0-0.5); Lymphocytes Absolute Auto 1.03 K/mm3 (0.9-3.2); Lymphocytes Percent Auto 9.3 % (18.3-44.2); Mean Corpuscular HGB Conc 32.7 g/dl (32-36); Mean Corpuscular Volume 94.8 fl (80-100); Mean Platelet Volume 9.3 fl (7.4-10.4); Monocytes Absolute Auto 0.4 K/mm3 (0.1-0.6); Monocytes Percent Auto 3.2 % (2.6-8.5); Neutrophils Absolute Auto 9.6 K/mm3 (1.3-6.7); Neutrophils Percent Auto 86.2 % (45.5-73.1); Platelet Count Result 191 k/mm3 (150-375); Red Blood Count 2.87 M/mm3 (4.6-6.20); Red Cell Distribution Width 15.1 % (11.5-14.5); White Blood Count 11.1 K/mm3 (4.5-10.0)
[2019-10-17 05:58] LABS: Lactic Acid 0.9 mmol/L (0.7-2.1)
[2019-10-17 06:16] LABS: Alanine Aminotransferase 8 U/L (4-50); Albumin Level 1.8 g/dL (3.5-5.1); Alkaline Phosphatase 160 U/L (38-126); Aspartate Amino Transferase 18 U/L (17-59); Bilirubin,Total 0.3 mg/dL (0.2-1.3); Blood Urea Nitrogen 7 mg/dL (9-20); CRP 13.2 mg/dL (<1.0); Calcium 7.6 mg/dL (8.4-10.2); Carbon Dioxide 28 mmol/L (22-30); Chloride 102 mmol/L (98-107); Estimated CRCL calculation 151 ml/min; Estimated Glomerular Filt Rate > 60; Glucose 95 mg/dL (75-110); Magnesium 1.7 mg/dL (1.6-2.3); Phosphorus 3.2 mg/dL (2.5-4.5); Potassium 3.3 mmol/L (3.4-5.0); Sodium 132 mmol/L (137-145)
[2019-10-17 06:51] LABS: Glucose Point of Care 82 (65-105)
[2019-10-17] MEDS: CENTRAL LINE FLUSH 10 ML IV PUSH ×4 (06:51→21:33)
[2019-10-17] MEDS: DORNASE ALFA INH SOLN 1 MG/ML 2.5 ML AMP 2.5 MG INHALATION ×2 (08:46→20:45)
--- NOTE | 2019-10-17 10:02 | WPDINTPN ---
Progress Note: A&P Assessment and Plan (1) Acute respiratory failure: Qualifiers: Respiratory failure complication: hypoxia Qualified Code(s): J96.01 - Acute respiratory failure with hypoxia Code(s): J96.00 - Acute respiratory failure, unspecified whether with hypoxia or hypercapnia Status: Acute Assessment and Plan: Patient seen in the IMU was found to be in impending respiratory failure with gurgling respirations and chest congestion. Discussed with spouse with Dinorah, who was agreeable for intubation. -patient was successfully intubated in the ICU on 10/15/2019 -chest x-ray and ABGs reviewed, ventilator adjusted tidal volume changed to 420 -sedation with fentanyl and Versed infusion, maintain RASS of 0 to -2, -sputum cultures have been obtained and yeast which is likely a colonizer -patient is on Pulmozyme for thick secretions -hold further IV fluids as patient has pulmonary edema on chest x-ray -question aspiration pneumonia and patient is on Primaxin -sedation holiday and will try SBT today (2) Acute encephalopathy: Code(s): G93.40 - Encephalopathy, unspecified Status: Acute Assessment and Plan: Patient was in the intermediate unit and was found to be in acute encephalopathy, obtunded, responding to deep pain stimulus. -likely due to hypoxia, possible liver dysfunction, severe sepsis -ammonia levels are normal -patient on sedation but opens his eyes and follows simple commands in all extremities -will perform sedation holiday (3) Gallbladder abscess: Code(s): K81.0 - Acute cholecystitis Status: Acute Assessment and Plan: Patient has 2 cholecystotomy tubes, 1 of them with isma purulent drainage Surgery service has been following him. Abscess culture growing ESBL E coli, infectious disease following the patient, patient is on Primaxin (4) Essential hypertension: Code(s): I10 - Essential (primary) hypertension Status: Chronic Assessment and Plan: -patient currently hypotensive, continue to holdd all antihypertensive (5) COPD (chronic obstructive pulmonary disease): Code(s): J44.9 - Chronic obstructive pulmonary disease, unspecified Status: Chronic Assessment and Plan: Continue bronchodilators (6) Afib: Qualifiers: Atrial fibrillation type: unspecified Qualified Code(s): I48.91 - Unspecified atrial fibrillation Code(s): I48.91 - Unspecified atrial fibrillation Status: Acute Assessment and Plan: AFib RVR with rate controlled with metoprolol p.o. and aspirin 325 mg suppository as he is NPO -if patient gets hypotensive will start amiodarone (7) Chronic alcohol use: Code(s): Z72.89 - Other problems related to lifestyle Status: Chronic Assessment and Plan: Patient has had alcohol dependence. Thiamine and folate. (8) CHF (congestive heart failure): Qualifiers: Heart failure chronicity: chronic Heart failure type: systolic Qualified Code(s): I50.22 - Chronic systolic (congestive) heart failure Code(s): I50.9 - Heart failure, unspecified Status: Chronic Assessment and Plan: LV systolic function mildly reduced, EF 45-50%. Mild mitral valve regurg, biatrial dilatation -chest x-ray shows possible pulmonary edema versus pneumonia -hold further IV fluids (9) GERD (gastroesophageal reflux disease): Qualifiers: Esophagitis presence: esophagitis presence not specified Qualified Code(s): K21.9 - Gastro-esophageal reflux disease without esophagitis Code(s): K21.9 - Gastro-esophageal reflux disease without esophagitis Status: Chronic Assessment and Plan: Continue IV Protonix (10) Ileus: Code(s): K56.7 - Ileus, unspecified Status: Acute Assessment and Plan: Hypoactive bowel sounds, dilated small bowel on CT scan of the abdomen. -continue to feeds and will add try advancing it to 40 mL/hour he tod
[2019-10-17] MEDS: MAGNESIUM SULF 2 GM/WATER 50ML 2 GM/50 ML BAG IVPB (10:49)
[2019-10-17] MEDS: ENOXAPARIN 40 MG/0.4 ML SYRINGE SUB-Q (10:50)
[2019-10-17] MEDS: POTASSIUM CHLORIDE 20 MEQ PACKET (FOR LIQUID) 40 MEQ PO (10:50)
[2019-10-17] MEDS: FOLIC ACID 1 MG TABLET PO (10:51)
[2019-10-17] MEDS: METOPROLOL TARTRATE 12.5 MG TABLET PO (10:51)
[2019-10-17] MEDS: ASPIRIN 325 MG TABLET FEED TUBE (10:51)
[2019-10-17] MEDS: MULTIVITAMINS THERAPEUTIC TAB (*BKC) 1 TABLET PO (10:51)
[2019-10-17] MEDS: BISACODYL 10 MG SUPPOSITORY RECTAL (10:52)
[2019-10-17] MEDS: polyethylene glycoL 3350 17 GM POWD.PACK PO (10:52)
[2019-10-17] MEDS: NITROFURANTOIN MACROCRYSTALS 50 MG CAP PO ×3 (10:52→21:33)
[2019-10-17] MEDS: PANTOPRAZOLE SODIUM IV 40 MG VIAL IV PUSH (10:52)
[2019-10-17] MEDS: TIMOLOL MALEATE 0.5% OP SOLN 5 ML BTL 1 DROP EACH EYE ×2 (10:53→21:33)
[2019-10-17] MEDS: THIAMINE HCL 100 MG TABLET PO (10:53)
[2019-10-17 11:39] LABS: Glucose Point of Care 88 (65-105)
--- NOTE | 2019-10-17 13:03 | PM.IMPN ---
Progress Note: A&P Assessment and Plan (1) Gallbladder abscess: Code(s): K81.0 - Acute cholecystitis Status: Acute Assessment and Plan: 10/17/19 13:03 A drain was placed per Interventional Radiology. And surgery has been consulted. ecoli seen in his cultures. Patient is on impenem Add nitrofurantoin Patient is 69-year-old male with long history of alcohol abuse he presented emergency department with abdominal pain his found to have abscess along his gallbladder patient was seen by general surgery patient is not a candidate surgical intervention at the present time and interventional radiologist placed a drain which is draining bile and what appears to be poor on discharge, the abscess culture is growing E coli sensitive to imipenem similarly urine culture is growing E coli with ESBL sensitive to imipenem, is seen by Dr. clarke continue to imipenem, patient also has a history of atrial fibrillation now in RVR was started on Amio drip seen by ceramic worker and switch him over to oral diltiazem rate is trending down, patient complains of abdominal pain denies any fever or chills. on 10/[address]-guided drainage of the gallbladder abscess, again patient had a ultrasound-guided drainage of abdominal wall abscess, patient is seen by Dr. clarke recommended to continue current management, on 10/13 patient was more congested and slightly short of breath chest x-ray showed pleural effusion a low-dose of IV Lasix 20 mg was given to help diurese and stop IV fluid, 10/14 went to see the patient he appeared more distress and impending respiratory failure, talked to the plumber maintenance who came and examined the patient patient was transfer to ICU and was intubated. Patient being diuresed, Patient was seen by Dr. Clarke on 10/15 recommended to continue imipenum # 7 another 4 more days, patient is on sedation holiday today and will have SBT in an attempts to wean him off vent. (2) COPD (chronic obstructive pulmonary disease): Code(s): J44.9 - Chronic obstructive pulmonary disease, unspecified Status: Chronic Assessment and Plan: restart breathing treatments (3) BPH (benign prostatic hyperplasia): Code(s): N40.0 - Benign prostatic hyperplasia without lower urinary tract symptoms Status: Chronic Assessment and Plan: Terazosin on hold at this time. (4) Septic shock: Code(s): A41.9 - Sepsis, unspecified organism; R65.21 - Severe sepsis with septic shock Status: Chronic Assessment and Plan: Continue iv fluids and iv impenem, cut back iv fluids (5) Acute UTI: Code(s): N39.0 - Urinary tract infection, site not specified Status: Acute Assessment and Plan: Pt is found to have ESBL in his urine add nitrofurantoin for coverage and ecoli in his cultures. (6) Sepsis: Code(s): A41.9 - Sepsis, unspecified organism Status: Acute Assessment and Plan: Pt is on iv fluids and IV abx seen by DR Surgery team ABX changed (7) Afib: Qualifiers: Atrial fibrillation type: unspecified Qualified Code(s): I48.91 - Unspecified atrial fibrillation Code(s): I48.91 - Unspecified atrial fibrillation Status: Acute Assessment and Plan: pT had amiodarone drip last night for fast AF. Plan is above (8) CHF (congestive heart failure): Qualifiers: Heart failure chronicity: chronic Heart failure type: systolic Qualified Code(s): I50.22 - Chronic systolic (congestive) heart failure Code(s): I50.9 - Heart failure, unspecified Status: Chronic Assessment and Plan: pt is on coreg Subjective Date/time seen: 10/17/19 13:03 A drain was placed per Interventional Radiology. And surgery has been consulted. ecoli seen in his cultures. Patient is on impenem Add nitrofurantoin Patient is 69-year-old male with long history of alcohol abuse he presented emergency department with abdominal pain his found to have abscess al
--- NOTE | 2019-10-17 15:07 | PM.PNGS ---
Progress Note: A&P Assessment and Plan (1) Gallbladder abscess: Code(s): K81.0 - Acute cholecystitis Status: Acute Assessment and Plan: continue drains and antibiotics (2) Sepsis: Code(s): A41.9 - Sepsis, unspecified organism Status: Acute Assessment and Plan: no pressor requirements at this time, continue antibiotics, continue drains, will repeat CT scan next week for further evaluation (3) Ileus: Code(s): K56.7 - Ileus, unspecified Status: Acute Assessment and Plan: Improved The abdominal exam benign, has tolerated trophic tube feeds with 1.5 veronica feedings down the OG. will gradually inc these to goal rate of 40 cc over the nest 24 hrs, as nurse reports pt had a large loose stool just now. (4) Acute respiratory failure: Qualifiers: Respiratory failure complication: hypoxia Qualified Code(s): J96.01 - Acute respiratory failure with hypoxia Code(s): J96.00 - Acute respiratory failure, unspecified whether with hypoxia or hypercapnia Status: Acute Assessment and Plan: management per critical care team Additional Plan Discussed the plan of care with Dr. Gonzales yesterday at checkout. Subjective Subjective Date/Time Seen: 10/17/19 15:07 Pt on vent so can't answer any questions. Nurse reports that today during the sedation holiday for 2 hrs. the pt did not seem to indicate any pain and tolerated breathing on his own fairly well. Review of Systems Review of Systems: ROS unobtainable: Yes unobtainable due to endotracheal tube Exam Const: General: comfortable, no acute distress, lethargic and tired appearing (sleeping when entering the room) Nutritional Appearance: average body habitus Orientation/consciousness: oriented to person, No oriented to place, oriented to time and lethargic HENMT: Mouth: Yes dry mucous membranes Eyes: Pupils: Equal, round and reactive pupils present EOM: EOMs intact bilaterally Neck: Neck: supple and no JVD Lymphatic: lymphadenopathy not noted Resp: Auscultation: crackles and diminished lung sounds Cardio: Rate: regular rate and tachycardic Rhythm: regular rhythm and abnormal rhythm irregularly irregular GI: Inspection: distended and other (Pigtail drain x 2 with large amount of purulent drainage) Auscultation: Hypoactive bowel sounds present Other: S, sl dist, drains x 2 c purulent discharge One drain is draining yellowish fluid which is probably mostly bile. Skin: General skin exam: normal color, no rashes or lesions noted and pallor Rashes: no rashes Wounds: no wounds Neuro: Cognition (Neuro): abnormal cognition (intubated and on the vent. so is sedated.) Extrem: General: normal to inspection, no clubbing, cyanosis or edema and edema bilateral (lower ext. 2 + over 5) Psych: Mental Status: mental status grossly normal Affect: Blunted affect present Attitude: cooperative Insight: Poor insight present (Psych) Judgement: Poor judgement present (Psych) Objective Data Vital Signs Vital Signs: Vital Signs - 24 hr 10/16/19 16:00 10/16/19 16:18 10/16/19 17:50 Temperature 36.9 C Pulse Rate 106 H 113 H 112 H Respiratory Rate 18 Blood Pressure 84/65 L Pulse Oximetry 98 98 10/16/19 18:00 10/16/19 19:44 10/16/19 19:45 Temperature Pulse Rate 113 H 104 H 104 H Respiratory Rate 18 18 Blood Pressure 97/57 L Pulse Oximetry 100 97 10/16/19 19:58 10/16/19 20:00 10/16/19 21:00 Temperature 36.9 C 36.8 C Pulse Rate 100 98 109 H Respiratory Rate 18 18 18 Blood Pressure 95/60 L 88/63 L Pulse Oximetry 100 100 10/16/19 21:56 10/16/19 22:00 10/16/19 22:25 Temperature 36.6 C Pulse Rate 109 H 100 111 H Respiratory Rate 18 18 Blood Pressure 94/67 L Pulse Oximetry 100 10/16/19 23:01 10/17/19 00:00 10/17/19 01:00 Temperature 36.7 C 36.7 C Pulse Rate 105 H 103 H 99 Respiratory Rate 18 18 Blood Pressure 100/67 91/65 L Pulse Oximetry 100 100 100
[2019-10-17 18:23] LABS: Glucose Point of Care 92 (65-105)
[2019-10-17 23:12] LABS: Glucose Point of Care 110 (65-105)
[2019-10-18] VITALS (28 sets, daily range): BP systolic 80–142; BP diastolic 60–100; PULSE 69–133; RESP 13–22; TEMP 36.2–37.8; O2SAT 91–99
[2019-10-18] MEDS: IPRATROPIUM BR 0.02% INH SOLN 0.5 MG/2.5 ML VIAL INHALATION ×4 (02:28→19:37)
[2019-10-18 04:22] LABS: Alveolar/Arterial O2 Gradient 163.9 mmHg; Base Excess ABG 1.3 mEq/l (+/-2.0); Carboxyhemoglobin 0.3 % THb (0-2.0); Fractional Inspired Oxygen 40 %; HCO3 ABG 25.8 mEq/l (22.0-26.0); Methemoglobin ABG 0.4 %THb (0-1.5); Oxygen Content ABG 13.9 %vol (16.0-22.0); Oxygen Saturation ABG 95.3 % (95.0-100.0); Oxyhemoglobin 92.1 % THb (90.0-100.0); PCO2 ABG 40.4 mmHg (35.0-45.0); PO2 ABG 74.8 mmHg (80.0-100.0); PO2 FiO2 Ratio Arterial Blood 1.87 %; Reduced Hemoglobin 7.2 %THb (0-5.0); Total Hemoglobin 10.7 g/dL (12.0-18.0); pH ABG 7.423 (7.350-7.450)
[2019-10-18 04:23] LABS: Arterial Blood Gas PEEP 5 cmH2O; Arterial Blood Gas Vent Mode CMV; Arterial Blood Gas Ventilator rate 18 /MIN; Device VENTILATOR; Modified Allen's Test Pass; Site Drawn RIGHT RADIAL
[2019-10-18 04:24] LABS: Arterial Blood Gas Tidal Volume 420 ml
[2019-10-18] MEDS: CENTRAL LINE FLUSH 10 ML IV PUSH ×4 (05:56→22:00)
[2019-10-18 06:01] LABS: Basophils Percent Auto 0.1 % (0.2-1.2); Eosinophils Absolute Auto 0.1 K/mm3 (0-0.3); Eosinophils Percent Auto 0.6 % (0-4.4); Hematocrit 29.8 % (42.0-52.0); Hemoglobin 9.5 g/dL (14.0-18.0); Immature Granulocyte Absolute 0.12 K/mm3 (0.00-0.031); Immature Granulocyte Percent A 0.8 % (0-0.5); Lymphocytes Absolute Auto 1.21 K/mm3 (0.9-3.2); Lymphocytes Percent Auto 8.5 % (18.3-44.2); Mean Corpuscular HGB Conc 31.9 g/dl (32-36); Mean Corpuscular Hemoglobin 30.5 pg (26-34); Mean Corpuscular Volume 95.8 fl (80-100); Mean Platelet Volume 9.4 fl (7.4-10.4); Monocytes Absolute Auto 0.5 K/mm3 (0.1-0.6); Monocytes Percent Auto 3.4 % (2.6-8.5); Neutrophils Absolute Auto 12.3 K/mm3 (1.3-6.7); Neutrophils Percent Auto 86.6 % (45.5-73.1); Platelet Count Result 259 k/mm3 (150-375); Red Blood Count 3.11 M/mm3 (4.6-6.20); Red Cell Distribution Width 15.4 % (11.5-14.5); White Blood Count 14.2 K/mm3 (4.5-10.0)
[2019-10-18 06:12] LABS: Lactic Acid 1.5 mmol/L (0.7-2.1)
[2019-10-18 06:21] LABS: Alanine Aminotransferase 12 U/L (4-50); Albumin Level 1.9 g/dL (3.5-5.1); Alkaline Phosphatase 305 U/L (38-126); Aspartate Amino Transferase 28 U/L (17-59); Bilirubin,Total 0.3 mg/dL (0.2-1.3); Blood Urea Nitrogen 9 mg/dL (9-20); Calcium 7.7 mg/dL (8.4-10.2); Carbon Dioxide 29 mmol/L (22-30); Chloride 100 mmol/L (98-107); Estimated CRCL calculation 145 ml/min; Estimated Glomerular Filt Rate > 60; Glucose 132 mg/dL (75-110); Phosphorus 3.4 mg/dL (2.5-4.5); Potassium 4.2 mmol/L (3.4-5.0); Sodium 132 mmol/L (137-145)
[2019-10-18 06:44] LABS: CRP 13.1 mg/dL (<1.0)
[2019-10-18] MEDS: DORNASE ALFA INH SOLN 1 MG/ML 2.5 ML AMP 2.5 MG INHALATION ×2 (08:36→19:37)
[2019-10-18] MEDS: BISACODYL 10 MG SUPPOSITORY RECTAL (09:02)
[2019-10-18] MEDS: polyethylene glycoL 3350 17 GM POWD.PACK PO (09:02)
[2019-10-18] MEDS: TIMOLOL MALEATE 0.5% OP SOLN 5 ML BTL 1 DROP EACH EYE ×2 (09:02→22:51)
[2019-10-18] MEDS: ENOXAPARIN 40 MG/0.4 ML SYRINGE SUB-Q (09:02)
[2019-10-18] MEDS: PANTOPRAZOLE SODIUM IV 40 MG VIAL IV PUSH (09:03)
[2019-10-18] MEDS: ASPIRIN 325 MG TABLET FEED TUBE (09:03)
[2019-10-18] MEDS: NITROFURANTOIN MACROCRYSTALS 50 MG CAP PO (09:03)
[2019-10-18] MEDS: MULTIVITAMINS THERAPEUTIC TAB (*BKC) 1 TABLET PO (09:03)
[2019-10-18] MEDS: THIAMINE HCL 100 MG TABLET PO (09:03)
[2019-10-18] MEDS: METOPROLOL TARTRATE 12.5 MG TABLET PO (09:04)
[2019-10-18] MEDS: FOLIC ACID 1 MG TABLET PO (09:04)
[2019-10-18] MEDS: ALBUMIN HUMAN 25% 25 GM/100 ML 200 ML IVPB ×2 (09:05→17:28)
--- NOTE | 2019-10-18 09:32 | WPDINTPN ---
Progress Note: A&P Assessment and Plan (1) Acute respiratory failure: Qualifiers: Respiratory failure complication: hypoxia Qualified Code(s): J96.01 - Acute respiratory failure with hypoxia Code(s): J96.00 - Acute respiratory failure, unspecified whether with hypoxia or hypercapnia Status: Acute Assessment and Plan: Patient seen in the IMU was found to be in impending respiratory failure with gurgling respirations and chest congestion. Discussed with spouse with Dinorah, who was agreeable for intubation. -patient was successfully intubated in the ICU on 10/15/2019 -chest x-ray and ABGs reviewed, ventilator adjusted tidal volume changed to 420 -sedation with fentanyl and Versed infusion, maintain RASS of 0 to -2, -sputum cultures have been obtained and yeast which is likely a colonizer -patient is on Pulmozyme for thick secretions -hold further IV fluids as patient has pulmonary edema on chest x-ray -patient is overall volume overloaded and would benefit from diuresis but due to his low blood pressure will hold. Albumin added to decrease 3rd spacing -question aspiration pneumonia and patient is on Primaxin -patient tolerated pressure support ventilation yesterday for few hours -sedation holiday and will try SBT today (2) Acute encephalopathy: Code(s): G93.40 - Encephalopathy, unspecified Status: Acute Assessment and Plan: Patient was in the intermediate unit and was found to be in acute encephalopathy, obtunded, responding to deep pain stimulus. -likely due to hypoxia, possible liver dysfunction, severe sepsis -ammonia levels are normal -patient on sedation but opens his eyes and follows simple commands in all extremities on sedation holiday (3) Gallbladder abscess: Code(s): K81.0 - Acute cholecystitis Status: Acute Assessment and Plan: Patient has 2 cholecystotomy tubes, 1 of them with isma purulent drainage Surgery service has been following him. Abscess culture growing ESBL E coli, infectious disease following the patient, patient is on Primaxin -will discuss with surgery (4) COPD (chronic obstructive pulmonary disease): Code(s): J44.9 - Chronic obstructive pulmonary disease, unspecified Status: Chronic Assessment and Plan: Continue bronchodilators (5) Afib: Qualifiers: Atrial fibrillation type: unspecified Qualified Code(s): I48.91 - Unspecified atrial fibrillation Code(s): I48.91 - Unspecified atrial fibrillation Status: Acute Assessment and Plan: AFib RVR with rate controlled with metoprolol p.o. and aspirin 325 mg suppository as he is NPO -if patient gets hypotensive will start amiodarone (6) Chronic alcohol use: Code(s): Z72.89 - Other problems related to lifestyle Status: Chronic Assessment and Plan: Patient has had alcohol dependence. Thiamine and folate. (7) CHF (congestive heart failure): Qualifiers: Heart failure type: systolic Heart failure chronicity: chronic Qualified Code(s): I50.22 - Chronic systolic (congestive) heart failure Code(s): I50.9 - Heart failure, unspecified Status: Chronic Assessment and Plan: LV systolic function mildly reduced, EF 45-50%. Mild mitral valve regurg, biatrial dilatation -chest x-ray shows possible pulmonary edema versus pneumonia -hold further IV fluids to low blood (8) GERD (gastroesophageal reflux disease): Qualifiers: Esophagitis presence: esophagitis presence not specified Qualified Code(s): K21.9 - Gastro-esophageal reflux disease without esophagitis Code(s): K21.9 - Gastro-esophageal reflux disease without esophagitis Status: Chronic Assessment and Plan: Continue IV Protonix (9) Ileus: Code(s): K56.7 - Ileus, unspecified Status: Acute Assessment and Plan: Hypoactive bowel sounds, dilated small bowel on CT scan of the abdomen. Tolerating tube feeds a
--- NOTE | 2019-10-18 10:04 | PM.PNCARD ---
Progress Note: A&P Additional Plan Will continue to follow this patient and provide rate control regarding his atrial fibrillation. No changes current regimen today and will anticipate resuming previous p.o. regimen once he is extubated Donavan Monahan MD [facility] Subjective Date/time seen: Date of service: 10/18/19 10:04 Interval history: 69-year-old man with history of chronic atrial fibrillation being managed with rate control. Principal reason for the patient's hospitalization is sepsis related to cholecystitis an intra-abdominal abscess which is being treated with percutaneous drainage and antibiotics. He was moved to the ICU several days ago because of respiratory failure requiring intubation. He is improving and potentially will be extubated later today or tomorrow. Continues to be in atrial fibrillation heart rate is somewhat rapid however is reasonable with his current dosage of much metoprolol. Heart rate is accelerating a little bit this morning as he is being weaned from sedation. Exam Const: Other: Chronically ill patient appears to be comfortable on the ventilator in the ICU HENMT: Mouth: Yes dry mucous membranes Neck: Neck: supple Resp: Other: Some rhonchorous breath sounds Cardio: Rhythm: abnormal rhythm irregularly irregular GI: Other: Abdomen soft bowel sounds diminished Skin: General skin exam: normal color Neuro: Cognition (Neuro): normal cognition Objective Data Vital Signs Vital Signs: Vital Signs - 24 hr 10/17/19 10:42 10/17/19 10:51 10/17/19 12:00 Temperature Pulse Rate 109 H 116 H 116 H Respiratory Rate 15 Blood Pressure 88/64 L Pulse Oximetry 91 91 10/17/19 13:07 10/17/19 14:00 10/17/19 14:20 Temperature Pulse Rate 101 H 106 H 107 H Respiratory Rate 18 18 Blood Pressure 82/53 L Pulse Oximetry 96 63 L 10/17/19 14:21 10/17/19 14:39 10/17/19 16:00 Temperature 36.7 C Pulse Rate 112 H 107 H 117 H Respiratory Rate 18 18 Blood Pressure 87/64 L Pulse Oximetry 98 98 10/17/19 16:05 10/17/19 16:35 10/17/19 18:00 Temperature 37.2 C Pulse Rate 111 H 117 H 105 H Respiratory Rate 18 18 Blood Pressure 85/66 L Pulse Oximetry 98 97 10/17/19 20:00 10/17/19 20:30 10/17/19 20:48 Temperature 37.3 C Pulse Rate 125 H 110 H 121 H Respiratory Rate 19 18 Blood Pressure 112/89 Pulse Oximetry 94 100 10/17/19 22:00 10/17/19 22:55 10/17/19 23:15 Temperature Pulse Rate 111 H 115 H 107 H Respiratory Rate 18 Blood Pressure 82/66 L Pulse Oximetry 97 98 10/17/19 23:18 10/17/19 23:30 10/18/19 00:00 Temperature 37.6 C H Pulse Rate 108 H 108 H 106 H Respiratory Rate 18 Blood Pressure 86/67 L 104/82 97/73 L Pulse Oximetry 98 10/18/19 02:00 10/18/19 02:04 10/18/19 02:30 Temperature 37.6 C H Pulse Rate 96 103 H 102 H Respiratory Rate 18 18 Blood Pressure 85/63 L 85/63 L Pulse Oximetry 97 98 10/18/19 03:17 10/18/19 03:43 10/18/19 04:00 Temperature 37.7 C H Pulse Rate 104 H 118 H 124 H Respiratory Rate 18 Blood Pressure 80/60 L 121/87 97/79 L Pulse Oximetry 95 10/18/19 04:27 10/18/19 06:00 10/18/19 08:28 Temperature 37.7 C H Pulse Rate 112 H 108 H 109 H Respiratory Rate 18 Blood Pressure 104/78 Pulse Oximetry 96 99 95 10/18/19 08:38 10/18/19 08:45 10/18/19 09:04 Temperature Pulse Rate 118 H 118 H 111 H Respiratory Rate 15 15 Blood Pressure Pulse Oximetry 10/18/19 09:45 10/18/19 09:51 Temperature Pulse Rate 120 H 80 Respiratory Rate Blood Pressure 142/100 H Pulse Oximetry 92 Intake/Output Intake/Output: Intake & Output 10/15/19 10/16/19 10/17/19 10/18/19 23:59 23:59 23:59 23:59 Intake Total 1191 3372.7 1835.3 834 Output Total 795 1660 630 535 Balance 396 1712.7 1205.3 299 Meds/Results Medications: Active Medications Generic Name Dose Route Start Last Admin Trade Name Freq PRN Reason Stop Dose Admin Acetaminophen 650 mg 10/10/19 11:24
[2019-10-18 10:11] LABS: Alveolar/Arterial O2 Gradient 175.3 mmHg; Base Excess ABG -1.3 mEq/l (+/-2.0); Carboxyhemoglobin 0.3 % THb (0-2.0); Fractional Inspired Oxygen 40 %; HCO3 ABG 23.4 mEq/l (22.0-26.0); Methemoglobin ABG 0.2 %THb (0-1.5); Oxygen Content ABG 13.8 %vol (16.0-22.0); Oxygen Saturation ABG 92.8 % (95.0-100.0); Oxyhemoglobin 90.4 % THb (90.0-100.0); PO2 ABG 65.1 mmHg (80.0-100.0); PO2 FiO2 Ratio Arterial Blood 1.63 %; Reduced Hemoglobin 9.1 %THb (0-5.0); Total Hemoglobin 10.8 g/dL (12.0-18.0); pH ABG 7.396 (7.350-7.450)
[2019-10-18 10:13] LABS: Modified Allen's Test Pass; Site Drawn RIGHT RADIAL
[2019-10-18 10:14] LABS: Arterial Blood Gas PEEP 5 cmH2O; Device VENTILATOR; Peak Inspiratory Pressure 5 cmH2O
[2019-10-18 10:15] LABS: Arterial Blood Gas Vent Mode SPONTANEOUS
--- NOTE | 2019-10-18 10:33 | PM.EVENT ---
Event Note Event Note Event Note: 5/5 PSV SBT done for more than 1 hour. RSBI, ABGI and Vitals acceptable. Pt awake and following commands. Will extubate and monitor. NPO for now. Bipap PRN
[2019-10-18 10:38] LABS: Lactic Acid 1.2 mmol/L (0.7-2.1)
--- NOTE | 2019-10-18 12:31 | PCSTNOTE ---
Bedside swallow study completed. Please see ST evaluation for further information regarding results and recommendations.
[2019-10-18 13:29] LABS: Glucose Point of Care 127 (65-105)
--- NOTE | 2019-10-18 14:47 | PM.IMPN ---
Progress Note: A&P Assessment and Plan (1) Gallbladder abscess: Code(s): K81.0 - Acute cholecystitis Status: Acute Assessment and Plan: 10/18/19 14:47 A drain was placed per Interventional Radiology. And surgery has been consulted. ecoli seen in his cultures. Patient is on impenem Add nitrofurantoin Patient is 69-year-old male with long history of alcohol abuse he presented emergency department with abdominal pain his found to have abscess along his gallbladder patient was seen by general surgery patient is not a candidate surgical intervention at the present time and interventional radiologist placed a drain which is draining bile and what appears to be poor on discharge, the abscess culture is growing E coli sensitive to imipenem similarly urine culture is growing E coli with ESBL sensitive to imipenem, is seen by Dr. clarke continue to imipenem, patient also has a history of atrial fibrillation now in RVR was started on Amio drip seen by administrative nursing supervisor and switch him over to oral diltiazem rate is trending down, patient complains of abdominal pain denies any fever or chills. on 10/[address]-guided drainage of the gallbladder abscess, again patient had a ultrasound-guided drainage of abdominal wall abscess, patient is seen by Dr. clarke recommended to continue current management, on 10/13 patient was more congested and slightly short of breath chest x-ray showed pleural effusion a low-dose of IV Lasix 20 mg was given to help diurese and stop IV fluid, 10/14 went to see the patient he appeared more distress and impending respiratory failure, talked to the director pharmacology who came and examined the patient patient was transfer to ICU and was intubated. Patient with hepatic abscess seen by surgery team being fed with a G-tube and tolerating, there is abscess drainage appears purulent, Patient being diuresed, Patient was seen by Dr. Clarke on 10/15 recommended to continue imipenum # 7 another 4 more days, today patient seen by director pharmacology and was successfully extubated, patient still quite somnolent but feels better. (2) COPD (chronic obstructive pulmonary disease): Code(s): J44.9 - Chronic obstructive pulmonary disease, unspecified Status: Chronic Assessment and Plan: restart breathing treatments (3) BPH (benign prostatic hyperplasia): Code(s): N40.0 - Benign prostatic hyperplasia without lower urinary tract symptoms Status: Chronic Assessment and Plan: Terazosin on hold at this time. (4) Septic shock: Code(s): A41.9 - Sepsis, unspecified organism; R65.21 - Severe sepsis with septic shock Status: Chronic Assessment and Plan: Continue iv fluids and iv impenem, cut back iv fluids (5) Acute UTI: Code(s): N39.0 - Urinary tract infection, site not specified Status: Acute Assessment and Plan: Pt is found to have ESBL in his urine add nitrofurantoin for coverage and ecoli in his cultures. (6) Sepsis: Code(s): A41.9 - Sepsis, unspecified organism Status: Acute Assessment and Plan: Pt is on iv fluids and IV abx seen by DR Surgery team ABX changed (7) Afib: Qualifiers: Atrial fibrillation type: unspecified Qualified Code(s): I48.91 - Unspecified atrial fibrillation Code(s): I48.91 - Unspecified atrial fibrillation Status: Acute Assessment and Plan: pT had amiodarone drip last night for fast AF. Plan is above (8) CHF (congestive heart failure): Qualifiers: Heart failure type: systolic Heart failure chronicity: chronic Qualified Code(s): I50.22 - Chronic systolic (congestive) heart failure Code(s): I50.9 - Heart failure, unspecified Status: Chronic Assessment and Plan: pt is on coreg Subjective Date/time seen: 10/18/19 14:47 A drain was placed per Interventional Radiology. And surgery has been consulted. ecoli seen in his cultures. Patient is on impenem Add nit
--- NOTE | 2019-10-18 17:30 | PM.PNGS ---
Progress Note: A&P Assessment and Plan (1) Gallbladder abscess: Code(s): K81.0 - Acute cholecystitis Status: Acute Assessment and Plan: continue drains and antibiotics (2) Sepsis: Code(s): A41.9 - Sepsis, unspecified organism Status: Acute Assessment and Plan: no pressor requirements at this time, continue antibiotics, continue drains, will repeat CT scan next week for further evaluation (3) Ileus: Code(s): K56.7 - Ileus, unspecified Status: Acute Assessment and Plan: Improved The abdominal exam benign, has tolerated Until just now. suspected this is resolved. Will try p.o. diet in a.m. if passes swallow test, otherwise dental technician instructor plans to place nasogastric feeding tube in start tube feeds tomorrow. (4) Acute respiratory failure: Qualifiers: Respiratory failure complication: hypoxia Qualified Code(s): J96.01 - Acute respiratory failure with hypoxia Code(s): J96.00 - Acute respiratory failure, unspecified whether with hypoxia or hypercapnia Status: Acute Assessment and Plan: management per critical care team Additional Plan Discussed surgical plan with dental technician instructor today. Subjective Subjective Date/Time Seen: 10/18/19 14:30 patient now extubated. He denies abdominal pain. He states he knew the was at the hospital but did not know what town was. Appears to be weak but breathing okay. Review of Systems Constitutional: Constitutional: Reports no additional constitutional complaints ENT: Reports other (Mucous Membranes moist.) Cardiovascular: Cardiovascular: Denies dyspnea Respiratory: Respiratory: Denies pain on inspiration and Denies dyspnea Gastrointestinal: Gastrointestinal: Reports as per HPI and Denies abdominal pain Musculoskeletal: Musculoskeletal: Reports other ( Some lower extremity edema) Integumentary/Breasts: Skin/Breast: Reports system reviewed and no additional complaints, except as docu Exam Const: General: cooperative, no acute distress, alert and awake Orientation/consciousness: oriented to person and oriented to place HENMT: Mouth: Yes moist mucous membranes Neck: Neck: normal visual inspection Chest: Chest palpation & inspection: normal inspection of the chest Resp: Effort & Inspection: normal respiratory effort Auscultation: clear to auscultation bilaterally Cardio: Jugular venous distension: no JVD Rate: regular rate Rhythm: regular rhythm GI: Inspection: other ( right upper quadrant drains 1 drain bile, the other yellow cloudy fluid) GI Palp: No abdominal tenderness and Yes Soft to palpation Auscultation: normal bowel sounds Rectal Exam: deferred Other: was tolerating tube feedings until extubated. OG removed at that time. Discussed with dental technician instructor. They will plan to place nasogastric feeding tube tomorrow if patient fails his bedside swallow. Will leave him NPO overnight as he failed his initial bedside swallow today. He seems weak so they wanted to wait and try it again in the morning. : Male General Exam: Yes normal external exam Urinary Catheter: Urinary Catheter: patent and draining, urine cloudy and urine pink Neuro: General: patient oriented x3 and moves all extremities Speech: normal speech Extrem: General: normal exam except as noted Psych: Mental Status: mental status grossly normal Speech and movement: Normal speech and movement present Affect: normal affect Thought content: Yes Normal thought content present Objective Data Vital Signs Vital Signs: Vital Signs - 24 hr 10/17/19 18:00 10/17/19 20:00 10/17/19 20:30 Temperature 37.2 C 37.3 C Pulse Rate 105 H 125 H 110 H Respiratory Rate 18 19 Blood Pressure 85/66 L 112/89 Pulse Oximetry 97 94 100 10/17/19 20:48 10/17/19 22:00 10/17/19 22:55 Temperature Pulse Rate 121 H 111 H 115 H Respiratory Rate 18 18 Blood Pressure 82/66 L Pulse Oximetry 97 10/17/19 23:15 10/17/19
[2019-10-18 17:48] LABS: Glucose Point of Care 127 (65-105)
[2019-10-18] MEDS: SODIUM CHLORIDE 0.9% INJ 10 ML 5 ML (19:17)
[2019-10-18] MEDS: METOPROLOL TARTRATE INJ 5 MG/5 ML VIAL IV PUSH (19:18)
[2019-10-19] VITALS (31 sets, daily range): BP systolic 76–141; BP diastolic 55–110; PULSE 58–138; RESP 18–23; TEMP 35.9–36.9; O2SAT 91–100
[2019-10-19] MEDS: ALBUMIN HUMAN 25% 25 GM/100 ML 200 ML IVPB ×3 (00:10→16:58)
[2019-10-19] MEDS: IPRATROPIUM BR 0.02% INH SOLN 0.5 MG/2.5 ML VIAL INHALATION ×4 (01:32→19:45)
[2019-10-19 04:35] LABS: Base Excess ABG 1.4 mEq/l (+/-2.0); Carboxyhemoglobin 0.3 % THb (0-2.0); Fractional Inspired Oxygen 100 %; Methemoglobin ABG 0.4 %THb (0-1.5); Oxygen Content ABG 12.1 %vol (16.0-22.0); Oxygen Saturation ABG 92.1 % (95.0-100.0); Oxyhemoglobin 89.5 % THb (90.0-100.0); PCO2 ABG 47.7 mmHg (35.0-45.0); PO2 ABG 65.3 mmHg (80.0-100.0); PO2 FiO2 Ratio Arterial Blood 0.65 %; Reduced Hemoglobin 9.8 %THb (0-5.0); Total Hemoglobin 9.6 g/dL (12.0-18.0); pH ABG 7.371 (7.350-7.450)
[2019-10-19 04:38] LABS: Device NON-REBREATHER MASK; Modified Allen's Test Pass; Site Drawn RIGHT RADIAL
[2019-10-19 06:32] LABS: Basophils Percent Auto 0.1 % (0.2-1.2); Eosinophils Absolute Auto 0.1 K/mm3 (0-0.3); Eosinophils Percent Auto 0.5 % (0-4.4); Hematocrit 27.7 % (42.0-52.0); Hemoglobin 8.6 g/dL (14.0-18.0); Immature Granulocyte Absolute 0.09 K/mm3 (0.00-0.031); Immature Granulocyte Percent A 0.8 % (0-0.5); Lymphocytes Absolute Auto 0.82 K/mm3 (0.9-3.2); Lymphocytes Percent Auto 6.9 % (18.3-44.2); Mean Corpuscular Hemoglobin 30.5 pg (26-34); Mean Corpuscular Volume 98.2 fl (80-100); Mean Platelet Volume 9.7 fl (7.4-10.4); Monocytes Absolute Auto 0.5 K/mm3 (0.1-0.6); Neutrophils Absolute Auto 10.4 K/mm3 (1.3-6.7); Neutrophils Percent Auto 87.7 % (45.5-73.1); Platelet Count Result 211 k/mm3 (150-375); Red Blood Count 2.82 M/mm3 (4.6-6.20); Red Cell Distribution Width 15.1 % (11.5-14.5); White Blood Count 11.8 K/mm3 (4.5-10.0)
[2019-10-19 06:39] LABS: Lactic Acid 0.6 mmol/L (0.7-2.1)
[2019-10-19 06:41] LABS: Alanine Aminotransferase 9 U/L (4-50); Alkaline Phosphatase 178 U/L (38-126); Aspartate Amino Transferase 16 U/L (17-59); Bilirubin,Total 0.5 mg/dL (0.2-1.3); Blood Urea Nitrogen 6 mg/dL (9-20); CRP 7.5 mg/dL (<1.0); Calcium 8.7 mg/dL (8.4-10.2); Carbon Dioxide 29 mmol/L (22-30); Chloride 102 mmol/L (98-107); Estimated CRCL calculation 175 ml/min; Estimated Glomerular Filt Rate > 60; Glucose 123 mg/dL (75-110); Phosphorus 3.9 mg/dL (2.5-4.5); Potassium 4.1 mmol/L (3.4-5.0); Sodium 136 mmol/L (137-145)
--- NOTE | 2019-10-19 07:20 | WPDINTPN ---
Progress Note: A&P Assessment and Plan (1) Acute respiratory failure: Qualifiers: Respiratory failure complication: hypoxia Qualified Code(s): J96.01 - Acute respiratory failure with hypoxia Code(s): J96.00 - Acute respiratory failure, unspecified whether with hypoxia or hypercapnia Status: Acute Assessment and Plan: Patient seen in the IMU was found to be in impending respiratory failure with gurgling respirations and chest congestion. Discussed with spouse with [facility], who was agreeable for intubation. -patient was successfully intubated in the ICU on 10/15/2019 - 10/17 -extubated after successful weaning trial but after few hours had difficulty clearing secretions and hypoxia. Patient was placed on non-rebreather mass and suction frequently as he was still awake and following commands to try to avoid re-intubation. -this morning patient was in respiratory distress with worsening hypoxia, tachycardic tachypneic, rattling secretions in his upper airway. -patient was reintubated with difficulty. It was a very difficult intubation. Please refer to intubation note. -post intubation patient remain high pressures and low saturation. Tidal volume was decreased to 350, albuterol nebulizer was given, stat chest x-ray was done and reviewed, patient was lavaged with saline to mobilize secretions -chest x-ray showed re-expansion of lung -I will consult pulmonary for evaluation for bronchoscopy -chest x-ray and ABGs reviewed, repeat ABG ordered -last sputum cultures have been obtained and yeast which is likely a colonizer -patient is on Pulmozyme for thick secretions -further IV fluids were held as patient has pulmonary edema on chest x-ray -patient is overall volume overloaded and I will give a dose of Lasix Albumin added to decrease 3rd spacing -question aspiration pneumonia and patient is on Primaxin (2) Acute encephalopathy: Code(s): G93.40 - Encephalopathy, unspecified Status: Acute Assessment and Plan: Patient was in the intermediate unit and was found to be in acute encephalopathy, obtunded, responding to deep pain stimulus. -likely due to hypoxia, possible liver dysfunction, severe sepsis -ammonia levels are normal -patient now be sedated for intubation and at respiratory failure (3) Gallbladder abscess: Code(s): K81.0 - Acute cholecystitis Status: Acute Assessment and Plan: Patient has 2 cholecystotomy tubes, 1 of them with isma purulent drainage Surgery service has been following him. Abscess culture growing ESBL E coli, infectious disease following the patient, patient is on Primaxin -I spoke to Dr. Gabriel yesterday about the plan and he told me that they plan to do CT abdomen pelvis to re-evaluate patient's abscess before making further decisions regarding surgery and recommend continuing tube feeds, antibiotics and conservative management at this time (4) COPD (chronic obstructive pulmonary disease): Code(s): J44.9 - Chronic obstructive pulmonary disease, unspecified Status: Chronic Assessment and Plan: Continue bronchodilators (5) Afib: Qualifiers: Atrial fibrillation type: unspecified Qualified Code(s): I48.91 - Unspecified atrial fibrillation Code(s): I48.91 - Unspecified atrial fibrillation Status: Acute Assessment and Plan: AFib RVR with rate controlled with metoprolol p.o. and aspirin 325 mg suppository as he is NPO -if patient gets hypotensive will start amiodarone (6) Chronic alcohol use: Code(s): Z72.89 - Other problems related to lifestyle Status: Chronic Assessment and Plan: Patient has had alcohol dependence. Thiamine and folate. (7) CHF (congestive heart failure): Qualifiers: Heart failure type: systolic Heart failure chronicity: chronic Qualified Code(s): I50.22 - Chronic systolic (congestive) heart failure Code(s): I50.9 - Heart failure, unspecified S
--- NOTE | 2019-10-19 07:43 | WPDINFPN2 ---
Progress Note: A&P Assessment and Plan (1) Gallbladder abscess: Code(s): K81.0 - Acute cholecystitis Status: Acute Assessment and Plan: 1. Acute cholecystitis with abscess, MDRO isolated. [address] 2. Dysphagia, suspect swallowing dysfunction due to debility and muscle deconditioning. 3. Respiratory distress with lung infiltrates, possible ARDS due to #1. Now on NRB 4. Yeast in sputum, colonizer and not pathogenic in this patient REC Imipenem # 10, continue. Discussed, will maintain IV therapy at least until after repeat CT results available sometime this week. No dose adjustments needed, renal clearance aceptable Subjective Date/time seen: 10/19/19 07:43 Interval history: extubated yesterday. No pressors. Awake,mumbles Exam Narrative: Exam Narrative: t max 37.8 Const: General: no acute distress Neck: Neck: supple Resp: Auscultation: clear to auscultation bilaterally and diminished lung sounds Other: upper airway noise Cardio: Rate: tachycardic Rhythm: regular rhythm Heart sounds: no gallops and no murmurs GI: Inspection: distended GI Palp: Yes Soft to palpation, Yes Tenderness to palpation present (GI) and No Guarding due to palpation present (GI) Auscultation: abnormal bowel sounds Urinary Catheter: Urinary Catheter: patent and draining and urine clear Skin: General skin exam: normal color and no rashes or lesions noted Extrem: General: edema Objective Data Vital Signs Vital Signs: Vital Signs - 24 hr 10/18/19 08:00 10/18/19 08:28 10/18/19 08:38 Temperature 37.8 C H Pulse Rate 116 H 109 H 118 H Respiratory Rate 14 15 Blood Pressure 108/81 Pulse Oximetry 91 95 10/18/19 08:45 10/18/19 09:04 10/18/19 09:45 Temperature Pulse Rate 118 H 111 H 120 H Respiratory Rate 15 Blood Pressure 142/100 H Pulse Oximetry 10/18/19 09:51 10/18/19 10:00 10/18/19 12:00 Temperature 36.7 C Pulse Rate 80 116 H 114 H Respiratory Rate 14 19 Blood Pressure 94/80 L 110/86 Pulse Oximetry 92 91 98 10/18/19 13:41 10/18/19 14:00 10/18/19 16:00 Temperature 36.2 C L 36.2 C L Pulse Rate 112 H 113 H 120 H Respiratory Rate 14 16 18 Blood Pressure 103/81 109/77 Pulse Oximetry 96 99 10/18/19 18:00 10/18/19 19:18 10/18/19 19:40 Temperature 36.3 C L Pulse Rate 119 H 133 H 113 H Respiratory Rate 16 18 Blood Pressure 126/84 Pulse Oximetry 98 10/18/19 19:44 10/18/19 20:00 10/18/19 22:00 Temperature 36.5 C 36.6 C Pulse Rate 132 H 125 H Respiratory Rate 22 H 20 Blood Pressure 125/83 127/84 Pulse Oximetry 94 95 94 10/18/19 22:50 10/19/19 00:00 10/19/19 01:33 Temperature 36.7 C Pulse Rate 122 H 123 H 138 H Respiratory Rate 19 18 Blood Pressure 122/84 Pulse Oximetry 93 10/19/19 01:43 10/19/19 02:00 10/19/19 04:00 Temperature 36.8 C 36.7 C Pulse Rate 118 H 122 H 128 H Respiratory Rate 20 20 20 Blood Pressure 128/84 Pulse Oximetry 92 93 10/19/19 06:00 Temperature 36.6 C Pulse Rate 119 H Respiratory Rate 21 H Blood Pressure 135/98 H Pulse Oximetry 97 Intake/Output Intake/Output: Intake & Output 10/16/19 10/17/19 10/18/19 10/19/19 23:59 23:59 23:59 23:59 Intake Total 3372.7 1835.3 1587 300 Output Total 8759 657 3486 1250 Balance 2287.7 1205.3 272 -950 Meds/Results Medications: Active Medications Generic Name Dose Route Start Last Admin Trade Name Freq PRN Reason Stop Dose Admin Acetaminophen 650 mg 10/10/19 11:24 10/10/19 12:18 Tylenol Tablet PO 650 mg Q6H PRN Administration Mild Pain (1-3) or Fever Aspirin 325 mg 10/17/19 08:00 10/18/19 09:03 Aspirin FEED TUBE 325 mg DAILY@0800 [facility] Administration Bisacodyl 10 mg 10/15/19 13:23 10/18/19 09:02 Dulcolax Suppository RECTAL 10 mg QAM [facility] Administration Dextrose 12.5 gm 10/16/19 17:13 10/16/19 17:29 Dextrose 50% Syringe IV PUSH 12.5 gm PRN PRN Administration Hypoglycemia Protocol Amy
[2019-10-19] MEDS: DORNASE ALFA INH SOLN 1 MG/ML 2.5 ML AMP 2.5 MG INHALATION ×2 (07:52→19:45)
[2019-10-19] MEDS: CENTRAL LINE FLUSH 10 ML IV PUSH ×4 (08:00→20:11)
--- NOTE | 2019-10-19 08:32 | P.OPB_ITS ---
Procedure Note - Brief Procedure Note - Brief Date of procedure: 10/19/19 Pre-op diagnosis: septic shock/Gallbladder abscess respiratory failure Post-op diagnosis: same Procedure performed: emergency intubation Description of procedure: Called to room by vice president compliance to assist with intubation after multiple attempts. Pt profoundly hypoxic. ICU glidescope with small blade not adequate for visualization. Attempted visualization with scruggs 2. Glottis very deep. Mask vent sats never above 72%. Called for OR Glidescope mask ventilation continued. OR mac 4 glidescope used. Good visualization. Intubated with 7.5 ETT and stylet. Position confirmed with Xray. Ventilation difficult. Sats in 60s. +ETCO2. Tube relinquished to Resp Therapy. Care continued by vice president compliance. Surgeon: Galindo Villegas MD Complications: No immediate complications Condition: critical Disposition: ICU
[2019-10-19 09:00] LABS: Alveolar/Arterial O2 Gradient 465.6 mmHg; Base Excess ABG -0.6 mEq/l (+/-2.0); Device VENTILATOR; Fractional Inspired Oxygen 100 %; HCO3 ABG 27.9 mEq/l (22.0-26.0); Modified Allen's Test Pass; Oxygen Content ABG 14.7 %vol (16.0-22.0); Oxygen Saturation ABG 98.9 % (95.0-100.0); Oxyhemoglobin 97.5 % THb (90.0-100.0); PCO2 ABG 67.9 mmHg (35.0-45.0); PO2 ABG 179.5 mmHg (80.0-100.0); PO2 FiO2 Ratio Arterial Blood 1.79 %; Site Drawn RIGHT RADIAL; Total Hemoglobin 10.4 g/dL (12.0-18.0); pH ABG 7.232 (7.350-7.450)
[2019-10-19 09:01] LABS: Arterial Blood Gas PEEP 12 cmH2O; Arterial Blood Gas Tidal Volume 450 ml; Arterial Blood Gas Vent Mode CMV; Arterial Blood Gas Ventilator rate 18 /MIN
--- NOTE | 2019-10-19 09:33 | P.PCNBED_ITS ---
Procedures Intubation Intubation Date: 10/19/19 Intubation Time: 08:00 Consent: Patient was in respiratory distress did node his head yes when I explained to him that he needs to be intubated and placed back on mechanical ventilation A pre-procedural Time-Out was completed immediately before starting the procedure and confirmed: Patient Identification, Site, Procedure, Patient Position and the Availability of Requisite Equipment: Yes Sedative: etomidate (20 mg and was repeated another dose before anesthesia attempt to intubate) Paralytic: succinylcholine Mg given: 100 Laryngoscope: fiber optic video scope Assist device used: fiber optic device ET tube size: 7.5 Tube secured depth (cm): 26 Tube secured location: lips Tube placement confirmation: visualized tube passing through cords, equal breath sounds bilaterally and confirmation by capnometry Patient tolerated procedure: other Intubation complications: difficult intubation Additional comments: This morning when arrived to see the patient patient was gurgling with secretions and was tachypneic tachycardic and hypoxic. He was on non-rebreather mask. We emergently decided to reintubate the patient and equipment was set up. Patient was ventilated with bag but sats remain in high 80s. Patient had a very difficult intubation. Patient had large amount of secr etions and swelling in his larynx. Cords were swollen and he was very anterior and deep. On 1st attempt with glide scope tube would not go in be on the cords the cords. Attempt was aborted patient is back again. Second attempt was made with MAC 4 blade but no view was obtained hence aborted. I called anesthesia and back patient again. While anesthesia was on their way I re-attempted with glide scope. I had only size 3 cover and during the procedure I was told that we do not have size 4 cover. On 3rd attempt I was unable to see any cords and they were covered with epiglottis and secretions. Patient was suctioned again and bagged under anesthesia arrived and took over the procedure. I stayed at bedside to assist. We called ER and OR for their glide scope and size 4 cover. It took anesthesia multiple attempts with Carrington, MAC and glide scope to achieve successful intubation. In between attempts patient was ventilated with bag mask and oral airway but sat remained in 70-80s. Post intubation patient sat remained low despite bagging with PEEP well. OG tube was placed and hooked up to suction to deflate stomach. Chest x-ray stat was done which showed adequate positioning of ET tube. I obtained a fiberoptic bronchoscope and visualized position of tip of ET tube under direct view in appropriate position. Chest x-ray shows re-expansion of the lung but showed bilateral diffuse infiltrates which would explain persistent hypoxia. ABG was obtained and reviewed. Ventilator was adjusted. Repeat ABGs ordered. Peak pressures remain high. ETT was suction. Albuterol nebulizer were administered. Patient was given 4 mg of Versed. Patient is also saline lavaged. Tidal volume decreased to 350. Patient remained hemodynamically stable throughout the procedure except the saturation as above mentioned. Will recheck ABG
[2019-10-19 10:02] LABS: Alveolar/Arterial O2 Gradient 528.1 mmHg; Fractional Inspired Oxygen 100 %; HCO3 ABG 27.8 mEq/l (22.0-26.0); Oxygen Content ABG 14.3 %vol (16.0-22.0); Oxygen Saturation ABG 98.3 % (95.0-100.0); Oxyhemoglobin 96.9 % THb (90.0-100.0); PCO2 ABG 55.3 mmHg (35.0-45.0); PO2 ABG 129.6 mmHg (80.0-100.0); Total Hemoglobin 10.3 g/dL (12.0-18.0); pH ABG 7.319 (7.350-7.450)
[2019-10-19 10:03] LABS: Arterial Blood Gas PEEP 12 cmH2O; Arterial Blood Gas Tidal Volume 380 ml; Arterial Blood Gas Vent Mode CMV; Arterial Blood Gas Ventilator rate 18 /MIN; Device VENTILATOR; Modified Allen's Test Pass; Site Drawn RIGHT RADIAL
[2019-10-19] MEDS: polyethylene glycoL 3350 17 GM POWD.PACK PO (10:45)
[2019-10-19] MEDS: ENOXAPARIN 40 MG/0.4 ML SYRINGE SUB-Q (10:45)
[2019-10-19] MEDS: BISACODYL 10 MG SUPPOSITORY RECTAL (10:46)
[2019-10-19] MEDS: FUROSEMIDE INJ 40 MG/4 ML VIAL IV PUSH (10:46)
[2019-10-19] MEDS: PANTOPRAZOLE SODIUM IV 40 MG VIAL IV PUSH (10:46)
[2019-10-19] MEDS: ASPIRIN 325 MG TABLET FEED TUBE (10:47)
[2019-10-19] MEDS: NITROFURANTOIN MACROCRYSTALS 50 MG CAP PO ×4 (10:47→20:09)
[2019-10-19] MEDS: METOPROLOL TARTRATE 12.5 MG TABLET PO ×2 (10:47→20:10)
[2019-10-19] MEDS: THIAMINE HCL 100 MG TABLET PO (10:47)
[2019-10-19] MEDS: MULTIVITAMINS THERAPEUTIC TAB (*BKC) 1 TABLET PO (10:47)
[2019-10-19] MEDS: FOLIC ACID 1 MG TABLET PO (10:48)
[2019-10-19] MEDS: TIMOLOL MALEATE 0.5% OP SOLN 5 ML BTL 1 DROP EACH EYE ×2 (10:49→20:10)
--- NOTE | 2019-10-19 11:52 | PCDIET ---
Nutrition Follow-Up Complete: Nutrition Diagnosis: Inadequate oral intake related to multiple medical issues as evidenced by NPO diet, previous meal refusals on advanced diet. Nutrition Diagnosis: Patient to meet estimated needs Goal in progress. Tube feedings held, as patient reintubated this morning. Plan for CT abdomen/pelvis prior to resuming tube feedings. Last recorded weight is 106.7 kg which is down from last review. I/O do not reflect significant fluid loss. Bowel Motility: BM x 2 documented overnight. Labs Reviewed: Hgb (8.6), Hct (27.7), Glu (123), Na (136), Alb (3.0) Meds Noted: Albumin, Miralax, Precedex, Vitamin B1, Fentanyl, MVI, Protonix, Folic Acid Additional Notes: No documented pressure sores. Abdomen with drains. Will continue to monitor with same goal. Nutrition Monitoring and Evaluation: Follow up every Saturday/Saturday. Follow daily in ICU rounds.
--- NOTE | 2019-10-19 12:13 | PM.CNPUL ---
Assessment and Plan Assessment and plan (1) Acute respiratory failure: Qualifiers: Respiratory failure complication: hypoxia Qualified Code(s): J96.01 - Acute respiratory failure with hypoxia Code(s): J96.00 - Acute respiratory failure, unspecified whether with hypoxia or hypercapnia Status: Acute Assessment and Plan: recurrent acute respiratory failure due to secretions, inability to maintain his airway due to encephalopathy, COPD, sepsis, and generalized illness. He was intubated October 14, exntubated October 17, and reintubated October 18 with improvemeent in aeration, still has infiltrates bilaterally. (2) COPD (chronic obstructive pulmonary disease): Code(s): J44.9 - Chronic obstructive pulmonary disease, unspecified Status: Chronic (3) Smoking: Code(s): F17.200 - Nicotine dependence, unspecified, uncomplicated Status: Acute History of Present Illness History of Present Illness Consult date: 10/22/19 Chief complaint: septic shock/Gallbladder abscess Narrative: Thank you for the consultation. Dr Mason requested pulmonary consult for secretions with recurrent lung collapse, and bronchoscopy which will performed today at 13:00. Lloyd Redman is a 69 yo man admitted 10/08/2019 with septic shock due to a gall bladder abscess. He was discharged on October 04 after admission with new atrial fib with RVR. He was readmitted October 07 on the advice of his [facility] doctor with lower abdominal pain for several days; increased lactic acid 2.8, WBC 14.5, central line placement for pressors, with loculated abscesses in the abdomen. He had an IR placed drainage tube placed with purulent output. October 14 he was intubated, and was extubated October 17. He was in the IMU where he was noted to be having difficulty breathing. CXR showed opacification of the left lung. Dr Mason moved him to the ICU and attempted intubation which was difficult, and anesthesiology placed the tube. This improved the collapse of the left lung, however he still has bilateral infiltrates after re-intubation. For this reason, a bronchoscopy was requested. Review of Systems Review of Systems: ROS unobtainable: Yes unobtainable due to endotracheal tube PMFSH Past Medical History Medical History (Updated 10/22/19 @ 09:18 by Brennan Mason MD) Acute cholecystitis 07/2019 treated with antibiotic therapy Alcohol abuse Atrial fibrillation Not on long-term anticoagulation due to high has bled score. BPH (benign prostatic hyperplasia) CHF (congestive heart failure) Mild systolic dysfunction noted on echocardiogram from 07/27/2019 45-50%, mild mitral valve regurgitation, mild aortic valve sclerosis and biatrial dilatation Chronic anemia COPD (chronic obstructive pulmonary disease) Essential hypertension GERD (gastroesophageal reflux disease) Histoplasmosis History of BPH History of TIAs Hyperlipidemia Vitamin D deficiency Surgical History Surgical History History of bilateral cataract extraction History of vasectomy Male circumcision Family History Family History Sibling Polio Father Lung cancer Mother Hypertension Social History Social History (Updated 10/08/19 @ 20:28 by Tanja Sorensen NP) Social History: Patient drinks (3) 4 oz drinks of Tequila a day prior to his hospitalization in July. Currently he is drinking 2 margaritas a day with 1 shot of Tequila each. He has smoked 1.5 packs cigarettes per day for 55 years. Primary care physician: Dr. Jean-Claude Crawford Code status: Full code. Surrogate decision maker is Raine phone number [phone]. The patient has 2 children. 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 Smoking packs per day: 1.5 Smoking cigarettes per day: 30.0 Years smoked: 54 Smoking pack-years: 81.00 Smoking status: Current every day smoker Tobacco type: cigarett
[2019-10-19 13:47] LABS: Glucose Point of Care 109 (65-105)
[2019-10-19] MEDS: SODIUM CHLORIDE 0.9% IV 500 ML IV CONT (14:53)
[2019-10-19] MEDS: MIDAZOLAM HCL 2 MG/2 ML VIAL IV PUSH (14:58)
--- NOTE | 2019-10-19 16:45 | PM.IMPN ---
Progress Note: A&P Assessment and Plan (1) Gallbladder abscess: Code(s): K81.0 - Acute cholecystitis Status: Acute Assessment and Plan: 10/19/19 16:45 A drain was placed per Interventional Radiology. And surgery has been consulted. ecoli seen in his cultures. Patient is on impenem Add nitrofurantoin Patient is 69-year-old male with long history of alcohol abuse he presented emergency department with abdominal pain his found to have abscess along his gallbladder patient was seen by general surgery patient was not a candidate for surgical intervention at the present time and interventional radiologist placed a drain which is draining bile and what appears to be pleurant discharge, the abscess culture is growing E coli sensitive to imipenem similarly urine culture is growing E coli with ESBL sensitive to imipenem, is seen by Dr. clarke continue to imipenem, patient also has a history of atrial fibrillation now in RVR was started on Amio drip seen by electric motor repair supervisor and switch him over to oral diltiazem rate is trending down, patient complains of abdominal pain denies any fever or chills. on 10/[address]-guided drainage of the gallbladder abscess, again patient had a ultrasound-guided drainage of abdominal wall abscess, patient is seen by Dr. clarke recommended to continue current management, on 10/13 patient was more congested and slightly short of breath chest x-ray showed pleural effusion a low-dose of IV Lasix 20 mg was given to help diurese and stop IV fluid, 10/14 went to see the patient he appeared more distress and impending respiratory failure, talked to the commissioner public works who came and examined the patient patient was transfer to ICU and was intubated. Patient with hepatic abscess seen by surgery team being fed with a G-tube and tolerating, there is abscess drainage appears purulent, Patient being diuresed, Patient was seen by Dr. Clarke on 10/15 recommended to continue imipenum # 7 another 4 more days, 10/17 patient seen by [employer] and was successfully extubated, patient was still quite somnolent but feels better and was doing well, Today patient was struggling and was difficulty with breathing and hypoxic, patient was intubated again it was not a difficult intubation, diarrhea patient was seen by Dr. Delacruz and had a bronchoscopy samples were collected for culture, currently patient is on vent and stable. (2) COPD (chronic obstructive pulmonary disease): Code(s): J44.9 - Chronic obstructive pulmonary disease, unspecified Status: Chronic Assessment and Plan: restart breathing treatments (3) BPH (benign prostatic hyperplasia): Code(s): N40.0 - Benign prostatic hyperplasia without lower urinary tract symptoms Status: Chronic Assessment and Plan: Terazosin on hold at this time. (4) Septic shock: Code(s): A41.9 - Sepsis, unspecified organism; R65.21 - Severe sepsis with septic shock Status: Chronic Assessment and Plan: Continue iv fluids and iv impenem, cut back iv fluids (5) Acute UTI: Code(s): N39.0 - Urinary tract infection, site not specified Status: Acute Assessment and Plan: Pt is found to have ESBL in his urine add nitrofurantoin for coverage and ecoli in his cultures. (6) Sepsis: Code(s): A41.9 - Sepsis, unspecified organism Status: Acute Assessment and Plan: Pt is on iv fluids and IV abx seen by DR Surgery team ABX changed (7) Afib: Qualifiers: Atrial fibrillation type: unspecified Qualified Code(s): I48.91 - Unspecified atrial fibrillation Code(s): I48.91 - Unspecified atrial fibrillation Status: Acute Assessment and Plan: pT had amiodarone drip last night for fast AF. Plan is above (8) CHF (congestive heart failure): Qualifiers: Heart failure type: systolic Heart failure chronicity: chronic Qualified Code(s): I50.22 - Chronic systolic (congestive) heart failure
[2019-10-19] MEDS: methylPREDNISolone SOD SUCC 40 MG VIAL IV PUSH ×2 (17:59→23:24)
[2019-10-19 19:20] LABS: Glucose Point of Care 102 (65-105)
[2019-10-19 21:27] LABS: Alveolar/Arterial O2 Gradient 254.5 mmHg; Base Excess ABG 1.4 mEq/l (+/-2.0); Fractional Inspired Oxygen 65 %; HCO3 ABG 26.3 mEq/l (22.0-26.0); Oxygen Content ABG 12.3 %vol (16.0-22.0); Oxygen Saturation ABG 99.1 % (95.0-100.0); Oxyhemoglobin 97.6 % THb (90.0-100.0); PCO2 ABG 42.6 mmHg (35.0-45.0); PO2 ABG 162.6 mmHg (80.0-100.0); Total Hemoglobin 8.7 g/dL (12.0-18.0); pH ABG 7.408 (7.350-7.450)
[2019-10-19 21:28] LABS: Arterial Blood Gas PEEP 12 cmH2O; Arterial Blood Gas Tidal Volume 420 ml; Arterial Blood Gas Vent Mode CMV; Arterial Blood Gas Ventilator rate 18 /MIN; Device VENTILATOR; Modified Allen's Test Unable to perform; Site Drawn RIGHT RADIAL
[2019-10-19 23:33] LABS: Glucose Point of Care 150 (65-105)
[2019-10-20] VITALS (35 sets, daily range): BP systolic 118–166; BP diastolic 82–115; PULSE 77–110; RESP 18–25; TEMP 36.2–36.7; O2SAT 92–100
--- NOTE | 2019-10-20 | ECHO_ITS ---
Patient Info Name: Lloyd Redman Age: 69 years : 1950 Gender: Male Ht: 70 in Wt: 243 lbs BSA: 2.37 m2 HR: 88 bpm BP: 155 / 103 mmHg Heart Rhythm: Atrial Fibrillation Technical Quality: Good Exam Date: 10/20/2019 9:15 AM Exam Location: [facility] Patient Status: Inpatient Admit Date: 10/08/2019 Staff Ordering Physician: Brennan Mason MD Warehouse Associate: Dmitry Tobin RDCS Attending Provider: Christa Tesfaye MD Exam Type: CA echo doppler color flow Study Info Indications I31.3 - Pericardial effusion (noninflammatory) Complete two-dimensional, color flow and Doppler transthoracic echocardiogram is performed. History/Risk Factors Pericardial effusion; septic shock, CHF, COPD, HTN, EtOH abuse. Summary 1. Normal LV size, mild LVH, normal LV systolic function, EF 55-60% with variable contractility due to atrial fibrillation. Indeterminate diastolic function. Mild biatrial enlargement. Mitral annular calcification, trivial MR. Aortic valve sclerosis without hemodynamically significant stenosis by Doppler. Trace TR, moderate pulmonary hypertension, RVSP 52 mmHg. Small circumferential pericardial effusion with echogenic material in the pericardial space. Clinical correlation is recommended. Left Ventricle Left ventricular chamber dimension is normal. Left ventricular systolic function is normal, estimated at 55-60%. There is mildly increased left ventricular wall thickness. Left ventricular septal wall motion is normal. The left ventricular diastolic function is normal. Right Ventricle Right ventricular chamber dimension is normal. Right ventricular systolic function is normal. Left Atria Left atrial chamber dimension is mildly enlarged. Right Atria Right atrial chamber dimension is mildly enlarged. Aortic Valve There is moderate aortic valve sclerosis. There is no aortic valve regurgitation. Pulmonic Valve The pulmonic valve is normal. There is trace pulmonic regurgitation. Mitral Valve There is no mitral valve stenosis. There is trace mitral valve regurgitation. The mitral valve annulus is mildly calcified. Tricuspid Valve The tricuspid valve leaflets are normal. There is trace tricuspid valve regurgitation. Moderate pulmonary hypertension, estimated pulmonary arterial systolic pressure is 52 mmHg. Pericardium/Pleural There is small pericardial effusion. Inferior Vena Cava Dilated inferior vena cava with <50% collapse upon inspiration consistent with Empty right atrial pressure, 15 mmHg. Aorta The aortic root size at the sinus of Valsalva is normal. The prox ascending aorta size is normal. Left Ventricular Outflow Tract Name Value Normal LVOT 2D LVOT Diameter 2.2 cm LVOT Doppler LVOT Peak Gradient 2 mmHg LVOT Mean Gradient 1 mmHg LVOT VTI 12 cm LVOT VTI/AV VTI Ratio 0.5 LVOT Stroke Volume 44 ml LVOT CO 3.6 l/min LVOT CI 1.5 l/min/m2
[2019-10-20] MEDS: ALBUMIN HUMAN 25% 25 GM/100 ML 200 ML IVPB ×3 (01:34→16:54)
[2019-10-20] MEDS: IPRATROPIUM BR 0.02% INH SOLN 0.5 MG/2.5 ML VIAL INHALATION ×4 (01:55→20:26)
[2019-10-20 04:40] LABS: Alveolar/Arterial O2 Gradient 136.6 mmHg; Base Excess ABG 0.9 mEq/l (+/-2.0); Carboxyhemoglobin 0.3 % THb (0-2.0); Fractional Inspired Oxygen 40 %; HCO3 ABG 24.8 mEq/l (22.0-26.0); Methemoglobin ABG 0.4 %THb (0-1.5); Oxygen Saturation ABG 98.1 % (95.0-100.0); Oxyhemoglobin 96.1 % THb (90.0-100.0); PCO2 ABG 36.8 mmHg (35.0-45.0); PO2 ABG 106.3 mmHg (80.0-100.0); PO2 FiO2 Ratio Arterial Blood 2.66 %; Reduced Hemoglobin 3.2 %THb (0-5.0); Total Hemoglobin 8.7 g/dL (12.0-18.0); pH ABG 7.447 (7.350-7.450)
[2019-10-20 04:41] LABS: Device VENTILATOR; Modified Allen's Test Pass; Site Drawn RIGHT RADIAL
[2019-10-20 04:42] LABS: Arterial Blood Gas PEEP 12 cmH2O; Arterial Blood Gas Tidal Volume 420 ml; Arterial Blood Gas Vent Mode CMV; Arterial Blood Gas Ventilator rate 18 /MIN
[2019-10-20 05:00] LABS: Lactic Acid 0.9 mmol/L (0.7-2.1)
[2019-10-20 05:01] LABS: Hematocrit 23.8 % (42.0-52.0); Hemoglobin 7.6 g/dL (14.0-18.0); Immature Granulocyte Absolute 0.04 K/mm3 (0.00-0.031); Immature Granulocyte Percent A 0.5 % (0-0.5); Lymphocytes Absolute Auto 0.55 K/mm3 (0.9-3.2); Lymphocytes Percent Auto 7.4 % (18.3-44.2); Mean Corpuscular HGB Conc 31.9 g/dl (32-36); Mean Corpuscular Volume 97.1 fl (80-100); Mean Platelet Volume 9.8 fl (7.4-10.4); Monocytes Absolute Auto 0.1 K/mm3 (0.1-0.6); Monocytes Percent Auto 0.9 % (2.6-8.5); Neutrophils Absolute Auto 6.7 K/mm3 (1.3-6.7); Neutrophils Percent Auto 91.2 % (45.5-73.1); Platelet Count Result 156 k/mm3 (150-375); Red Blood Count 2.45 M/mm3 (4.6-6.20); White Blood Count 7.4 K/mm3 (4.5-10.0)
[2019-10-20 05:04] LABS: Alanine Aminotransferase 9 U/L (4-50); Albumin Level 3.8 g/dL (3.5-5.1); Alkaline Phosphatase 190 U/L (38-126); Aspartate Amino Transferase 18 U/L (17-59); Bilirubin,Total 0.5 mg/dL (0.2-1.3); Blood Urea Nitrogen 8 mg/dL (9-20); CRP 8.1 mg/dL (<1.0); Calcium 9.3 mg/dL (8.4-10.2); Carbon Dioxide 29 mmol/L (22-30); Chloride 100 mmol/L (98-107); Estimated CRCL calculation 125 ml/min; Estimated Glomerular Filt Rate > 60; Glucose 152 mg/dL (75-110); Magnesium 2.1 mg/dL (1.6-2.3); Potassium 4.6 mmol/L (3.4-5.0); Sodium 136 mmol/L (137-145)
[2019-10-20] MEDS: methylPREDNISolone SOD SUCC 40 MG VIAL IV PUSH ×4 (05:17→23:11)
[2019-10-20] MEDS: CENTRAL LINE FLUSH 10 ML IV PUSH ×4 (05:17→19:44)
[2019-10-20] MEDS: DORNASE ALFA INH SOLN 1 MG/ML 2.5 ML AMP 2.5 MG INHALATION ×2 (08:00→20:27)
[2019-10-20] MEDS: NITROFURANTOIN MACROCRYSTALS 50 MG CAP PO ×3 (08:16→16:54)
[2019-10-20] MEDS: MULTIVITAMINS THERAPEUTIC TAB (*BKC) 1 TABLET PO (08:16)
[2019-10-20] MEDS: METOPROLOL TARTRATE 12.5 MG TABLET PO ×2 (08:16→19:42)
[2019-10-20] MEDS: FUROSEMIDE INJ 40 MG/4 ML VIAL IV PUSH ×2 (08:17→16:54)
[2019-10-20] MEDS: PANTOPRAZOLE SODIUM IV 40 MG VIAL IV PUSH (08:17)
[2019-10-20] MEDS: FOLIC ACID 1 MG TABLET PO (08:17)
[2019-10-20] MEDS: ENOXAPARIN 40 MG/0.4 ML SYRINGE SUB-Q (08:17)
[2019-10-20] MEDS: THIAMINE HCL 100 MG TABLET PO (08:17)
[2019-10-20] MEDS: polyethylene glycoL 3350 17 GM POWD.PACK PO (08:18)
[2019-10-20] MEDS: TIMOLOL MALEATE 0.5% OP SOLN 5 ML BTL 1 DROP EACH EYE ×2 (08:18→19:42)
[2019-10-20] MEDS: BISACODYL 10 MG SUPPOSITORY RECTAL (08:18)
[2019-10-20] MEDS: ASPIRIN 325 MG TABLET FEED TUBE (08:20)
--- NOTE | 2019-10-20 09:35 | PM.PNGS ---
Progress Note: A&P Assessment and Plan (1) Gallbladder abscess: Code(s): K81.0 - Acute cholecystitis Status: Acute Assessment and Plan: cont drain, abx, seems to be improved (2) Hepatic abscess: Code(s): K75.0 - Abscess of liver Status: Acute Assessment and Plan: new abscess on R lobe, will need additional drain, cont abx (3) Septic shock: Code(s): A41.9 - Sepsis, unspecified organism; R65.21 - Severe sepsis with septic shock Status: Chronic Assessment and Plan: resolving c drainage, abx (4) Acute respiratory failure: Qualifiers: Respiratory failure complication: hypoxia Qualified Code(s): J96.01 - Acute respiratory failure with hypoxia Code(s): J96.00 - Acute respiratory failure, unspecified whether with hypoxia or hypercapnia Status: Acute Assessment and Plan: reintubated yest, mgmt per pipe maker Subjective Subjective Date/Time Seen: 10/20/19 09:35 pt was reintubated yest due to resp distress, CT yest reviewed, drains x 2 c minimal output Review of Systems Review of Systems: ROS unobtainable: Yes unobtainable due to endotracheal tube Exam Resp: Auscultation: diminished lung sounds Cardio: Rate: tachycardic GI: Other: S, sl dist, drains x 2 c bilious, purulent drainage (minimal) Objective Data Vital Signs Vital Signs: Vital Signs - 24 hr 10/19/19 10:00 10/19/19 10:44 10/19/19 10:47 Temperature 36.1 C L Pulse Rate 120 H 113 H 121 H Respiratory Rate 21 H 23 H Blood Pressure 104/81 Pulse Oximetry 100 10/19/19 11:25 10/19/19 12:00 10/19/19 14:00 Temperature 36.9 C 36.8 C Pulse Rate 125 H 101 H 95 Respiratory Rate 22 H 18 Blood Pressure 82/67 L 84/75 L Pulse Oximetry 98 100 100 10/19/19 14:23 10/19/19 14:31 10/19/19 16:00 Temperature 36.3 C L Pulse Rate 91 58 L 89 Respiratory Rate 19 19 Blood Pressure 76/55 L Pulse Oximetry 96 100 10/19/19 16:35 10/19/19 18:00 10/19/19 18:25 Temperature 36.0 C L Pulse Rate 100 87 99 Respiratory Rate 18 18 Blood Pressure 120/86 Pulse Oximetry 92 100 10/19/19 19:45 10/19/19 19:58 10/19/19 20:00 Temperature 36.1 C L Pulse Rate 85 93 91 Respiratory Rate 18 18 18 Blood Pressure 129/94 H Pulse Oximetry 100 100 10/19/19 20:10 10/19/19 20:31 10/19/19 22:25 Temperature Pulse Rate 97 90 94 Respiratory Rate 20 Blood Pressure Pulse Oximetry 100 10/19/19 22:31 10/19/19 22:34 10/19/19 23:59 Temperature 36.2 C L Pulse Rate 83 94 87 Respiratory Rate 18 19 18 Blood Pressure 141/94 H Pulse Oximetry 99 10/20/19 00:00 10/20/19 00:06 10/20/19 01:37 Temperature 36.2 C L Pulse Rate 86 99 96 Respiratory Rate 18 18 18 Blood Pressure 151/94 H Pulse Oximetry 100 10/20/19 01:55 10/20/19 02:00 10/20/19 02:04 Temperature 36.5 C Pulse Rate 94 93 88 Respiratory Rate 18 18 18 Blood Pressure 141/99 H Pulse Oximetry 99 100 10/20/19 03:23 10/20/19 04:00 10/20/19 04:30 Temperature 36.7 C Pulse Rate 77 108 H 96 Respiratory Rate 18 24 H Blood Pressure 118/82 Pulse Oximetry 100 100 99 10/20/19 04:50 10/20/19 06:00 10/20/19 08:00 Temperature 36.7 C 36.6 C Pulse Rate 98 88 83 Respiratory Rate 18 18 18 Blood Pressure 155/107 H 155/103 H Pulse Oximetry 98 98 Intake/Output Intake/Output: Intake & Output 10/17/19 10/18/19 10/19/19 10/20/19 23:59 23:59 23:59 23:59 Intake Total 1835.3 1587 1176 524 Output Total 630 1315 2340 475 Balance 1205.3 762 -1164 49 Meds/Results Medications: Active Medications Generic Name Dose Route Start Last Admin Trade Name Freq PRN Reason Stop Dose Admin Acetaminophen 650 mg 10/10/19 11:24 10/10/19 12:18 Tylenol Tablet PO 650 mg Q6H PRN Administration Mild Pain (1-3) or Fever Aspirin 325 mg 10/17/19 08:00 10/20/19 08:20 Aspirin FEED TUBE 325 mg DAILY@0800 MONET Administration Bisacodyl 10 mg 10/15/19 13:23
--- NOTE | 2019-10-20 10:46 | WPDINTPN ---
Progress Note: A&P Assessment and Plan (1) Acute respiratory failure: Qualifiers: Respiratory failure complication: hypoxia Qualified Code(s): J96.01 - Acute respiratory failure with hypoxia Code(s): J96.00 - Acute respiratory failure, unspecified whether with hypoxia or hypercapnia Status: Acute Assessment and Plan: Patient seen in the IMU was found to be in impending respiratory failure with gurgling respirations and chest congestion. Discussed with spouse with Dinorah, who was agreeable for intubation. -patient was successfully intubated in the ICU on 10/15/2019 - 10/17 -extubated after successful weaning trial but after few hours had difficulty clearing secretions and hypoxia. Patient was placed on non-rebreather mass and suction frequently as he was still awake and following commands to try to avoid re-intubation. 10/18 worsening respiratory distress with worsening hypoxia, tachycardic tachypneic, rattling secretions in his upper airway. Reintubated with difficulty -Pulmonary consulted and bronchoscopy was done. Culture sent -chest x-ray and ABGs reviewed, wean FiO2. Peep decreased to 10 -last sputum cultures have been obtained and yeast which is likely a colonizer -patient is on Pulmozyme for thick secretions -patient is overall volume overloaded and I will start agile q.12 hour Lasix as allowed by blood pressure - Albumin added to decrease 3rd spacing -question aspiration pneumonia and patient is on Primaxin which I will continue (2) Acute encephalopathy: Code(s): G93.40 - Encephalopathy, unspecified Status: Acute Assessment and Plan: Patient was in the intermediate unit and was found to be in acute encephalopathy, obtunded, responding to deep pain stimulus. -likely due to hypoxia, possible liver dysfunction, severe sepsis -ammonia levels are normal -patient now be sedated for intubation and at respiratory failure (3) Gallbladder abscess: Code(s): K81.0 - Acute cholecystitis Status: Acute Assessment and Plan: Patient has 2 cholecystotomy tubes, 1 of them with isma purulent drainage Surgery service managing Abscess culture growing ESBL E coli, infectious disease following the patient, patient is on Primaxin CT A/P 10/18 IMPRESSION: 1. Moderate volume of ascites with areas of peritoneal thickening and enhancement in left paracolic gutter and in the pelvis, likely an exudate. 2. Rim-enhancing fluid collection at the undersurface of right hepatic lobe, consistent with abscess. 3. Pigtail drains in the gallbladder fossa and anteroinferior to the liver. No residual fluid in these locations. -I spoke to Dr. Gabriel yesterday and Dr. Gonzales today. They plan to place another drain in the abscess under right hepatic lobe, continue antibiotic therapy at this time. They do not feel the patient would benefit from operative intervention at this point. Plan to place drain tomorrow morning by radiology under CT guidance. (4) COPD (chronic obstructive pulmonary disease): Code(s): J44.9 - Chronic obstructive pulmonary disease, unspecified Status: Chronic Assessment and Plan: Continue bronchodilators (5) Afib: Qualifiers: Atrial fibrillation type: unspecified Qualified Code(s): I48.91 - Unspecified atrial fibrillation Code(s): I48.91 - Unspecified atrial fibrillation Status: Acute Assessment and Plan: AFib RVR with rate controlled on aspirin 325 mg suppository as he is NPO Patient was seen by Cardiology and not felt to be candidate for anticoagulation due to history of falls and alcohol abuse in the past. Since admission patient has had multiple invasive procedures including 1 planned today and may need to go to surgery hence anticoagulation not felt to be safe (6) Chronic alcohol use: Code(s): Z72.89 - Other problems related to lifestyle Status: Chronic Assessment and Plan: Patient has had alcohol depende
--- NOTE | 2019-10-20 11:32 | PCDIET ---
Nutrition Follow-Up Complete: Nutrition Diagnosis: Inadequate oral intake related to multiple medical issues as evidenced by NPO diet, previous meal refusals on advanced diet. Nutrition Goal: Patient to meet estimated needs Goal in progress. Plan for additional drain placement today, then tube feeding initiation. Recommend Vital 1.5 beginning at 20mL/hr with gradual advancement toward goal of 50mL/hr with Pro-Stat flush TID for total of 1950kcal, 119g protein and 840mL free water over presumed 22 hours/day. Last recorded weight is 110.4 kg. Bowel Motility: Last documented BM on 10/19/19. Labs Reviewed: Hgb (7.6), Hct (23.8), Glu (152), BUN (8), Cr (0.6), Na (136) Meds Noted: Albumin, Primaxin, Dulcolax, Atrovent, Precedex, Xopenex, Fentanyl, Solu Medrol, Folic Acid, MVI, Thiamine, Lasix, Protonix, Miralax Additional Notes: Abdomen with drains. No reported pressure sores. Will continue to monitor with same goal. Nutrition Monitoring and Evaluation: Follow up every Saturday/Saturday. Follow daily in ICU rounds.
[2019-10-20 12:56] LABS: Glucose Point of Care 153 (65-105)
--- NOTE | 2019-10-20 13:24 | WPDINFPN2 ---
Progress Note: A&P Assessment and Plan (1) Gallbladder abscess: Code(s): K81.0 - Acute cholecystitis Status: Acute Assessment and Plan: 1. Acute cholecystitis with abscess, MDRO isolated. [address] 2. Dysphagia, suspect swallowing dysfunction due to debility and muscle deconditioning. 3. Respiratory distress with lung infiltrates, possible ARDS due to #1. Now back on vent. CXR noted 4. Yeast in sputum, colonizer and not pathogenic in this patient. Washing just obtained. REC Imipenem # 11, continue. Will maintain IV therapy at least until after repeat CT results available sometime this week. No dose adjustments needed, renal clearance acceptable. No additional antibiotics needed regarding the infiltrates. Subjective Date/time seen: 10/20/19 13:24 Interval history: sedated, no pressors, on vent Exam Narrative: Exam Narrative: afebrile Const: General: no acute distress Resp: Effort & Inspection: normal respiratory effort Auscultation: clear to auscultation bilaterally and diminished lung sounds Cardio: Rate: regular rate Rhythm: regular rhythm Heart sounds: no murmurs GI: Inspection: distended GI Palp: Yes Soft to palpation, No Tenderness to palpation present (GI) and No Guarding due to palpation present (GI) Auscultation: abnormal bowel sounds Skin: General skin exam: normal color and no rashes or lesions noted Objective Data Vital Signs Vital Signs: Vital Signs - 24 hr 10/19/19 14:00 10/19/19 14:23 10/19/19 14:31 Temperature 36.8 C Pulse Rate 95 91 58 L Respiratory Rate 18 19 Blood Pressure 84/75 L Pulse Oximetry 100 96 10/19/19 16:00 10/19/19 16:35 10/19/19 18:00 Temperature 36.3 C L 36.0 C L Pulse Rate 89 100 87 Respiratory Rate 19 18 Blood Pressure 76/55 L 120/86 Pulse Oximetry 100 92 100 10/19/19 18:25 10/19/19 19:45 10/19/19 19:58 Temperature Pulse Rate 99 85 93 Respiratory Rate 18 18 18 Blood Pressure Pulse Oximetry 100 10/19/19 20:00 10/19/19 20:10 10/19/19 20:31 Temperature 36.1 C L Pulse Rate 91 97 90 Respiratory Rate 18 20 Blood Pressure 129/94 H Pulse Oximetry 100 10/19/19 22:25 10/19/19 22:31 10/19/19 22:34 Temperature 36.2 C L Pulse Rate 94 83 94 Respiratory Rate 18 19 Blood Pressure 141/94 H Pulse Oximetry 100 99 10/19/19 23:59 10/20/19 00:00 10/20/19 00:06 Temperature 36.2 C L Pulse Rate 87 86 99 Respiratory Rate 18 18 18 Blood Pressure 151/94 H Pulse Oximetry 100 10/20/19 01:37 10/20/19 01:55 10/20/19 02:00 Temperature 36.5 C Pulse Rate 96 94 93 Respiratory Rate 18 18 18 Blood Pressure 141/99 H Pulse Oximetry 99 100 10/20/19 02:04 10/20/19 03:23 10/20/19 04:00 Temperature 36.7 C Pulse Rate 88 77 108 H Respiratory Rate 18 18 24 H Blood Pressure 118/82 Pulse Oximetry 100 100 10/20/19 04:30 10/20/19 04:50 10/20/19 06:00 Temperature 36.7 C Pulse Rate 96 98 88 Respiratory Rate 18 18 Blood Pressure 155/107 H Pulse Oximetry 99 98 10/20/19 08:00 10/20/19 08:08 10/20/19 10:00 Temperature 36.6 C 36.3 C L Pulse Rate 85 88 82 Respiratory Rate 18 18 18 Blood Pressure 155/103 H 155/94 H Pulse Oximetry 98 96 10/20/19 12:00 Temperature 36.3 C L Pulse Rate 101 H Respiratory Rate 18 Blood Pressure 160/114 H Pulse Oximetry 98 Intake/Output Intake/Output: Intake & Output 10/17/19 10/18/19 10/19/19 10/20/19 23:59 23:59 23:59 23:59 Intake Total 1835.3 1587 1176 724 Output Total 890 7555 2340 475 Balance 1205.3 593 -1164 249 Meds/Results Medications: Active Medications Generic Name Dose Route Start Last Admin Trade Name Freq PRN Reason Stop Dose Admin Acetaminophen 650 mg 10/10/19 11:24 10/10/19 12:18 Tylenol Tablet PO 650 mg Q6H PRN Administration Mild Pain (1-3) or Fever Aspirin 325 mg 10/17/19 08:00 10/20/19 08:20 Aspirin FEED TUBE 325 mg DAILY@0800 MONET Administration Bisacodyl 10 mg 10/15/19 13
--- NOTE | 2019-10-20 16:45 | PM.PNCARD ---
Progress Note: A&P Assessment and Plan (1) Afib: Qualifiers: Atrial fibrillation type: unspecified Qualified Code(s): I48.91 - Unspecified atrial fibrillation Code(s): I48.91 - Unspecified atrial fibrillation Status: Acute Assessment and Plan: Of unknown duration when first seen in July of this year. At that time he was difficult to control. Was on a significant dose of diltiazem along with carvedilol. Admitted with abdominal pain, acute cholecystitis and hepatic abcesses and elevated heart rates. Due to his mild LV dysfunction (EF 45-50% 07/27/2019) beta edmund is being used. Heart rates now controlled. Becomes hypotensive with IVP metoprolol. Changed to Metoprolol 12.5 mg q 12 hours per OG tube. Not a candidate for anticoagulation due to his alcohol abuse and reported falling. Continue aspirin 325 mg. No changes current regimen today and will anticipate resuming previous p.o. regimen once he is extubated Subjective Date/time seen: 10/20/19 16:45 Interval history: 69-year-old man with history of chronic atrial fibrillation being managed with rate control. Principal reason for the patient's hospitalization is sepsis related to cholecystitis an intra-abdominal abscess which is being treated with percutaneous drainage and antibiotics. He was moved to the ICU several days ago because of respiratory failure requiring intubation. He is improving and potentially will be extubated later today or tomorrow. 10/19/2019: Continues to be in atrial fibrillation heart rate is somewhat rapid however is reasonable with his current dosage of much metoprolol. Heart rate is accelerating a little bit this morning as he is being weaned from sedation. Date of service 10/20/2019: Remains intubated, FiO2 is 30%. AFib with a controlled heart rate, 70-100. yesterday's low BP resolved, now mildly hypertensive. Infrequent PVCs, two 4 beat runs of V-tach. Started on Lasix and albumin by Dr. Parrish. Dr. Gonzales plans on placing a hepatic drain for abcess tmr. Spoke to at bedside. Review of Systems Review of Systems: Narrative: ROS obtained fr RN and chart Hepatic drain tmr. No plans to attempt weaning; pt was a very difficult re-intubation. Quiet day, stable VS. ROS unobtainable: Yes unobtainable due to endotracheal tube and unobtainable due to mental status Exam Const: General: comfortable and no acute distress HENMT: Mouth: Yes dry mucous membranes Neck: Thyroid: thyroid normal Resp: Effort & Inspection: normal respiratory effort Other: Intubated, clear anterolaterally Cardio: Rate: not tachycardic Rhythm: abnormal rhythm irregularly irregular Heart sounds: no murmurs GI: Inspection: non-distended Auscultation: abnormal bowel sounds (absent BS but soft.) Urinary Catheter: Urinary Catheter: patent and draining Skin: General skin exam: normal color Neuro: Cognition (Neuro): abnormal cognition (Sedated) Extrem: General: edema (Mild upper/lower ext edema) Psych: Mental Status: mental status grossly abnormal Other: Unresponsive Objective Data Vital Signs Vital Signs: Vital Signs - 24 hr 10/19/19 18:00 10/19/19 18:25 10/19/19 19:45 Temperature 96.8 F L Pulse Rate 87 99 85 Respiratory Rate 18 18 18 Blood Pressure 120/86 Pulse Oximetry 100 100 10/19/19 19:58 10/19/19 20:00 10/19/19 20:10 Temperature 96.9 F L Pulse Rate 93 91 97 Respiratory Rate 18 18 Blood Pressure 129/94 H Pulse Oximetry 100 10/19/19 20:31 10/19/19 22:25 10/19/19 22:31 Temperature 97.2 F L Pulse Rate 90 94 83 Respiratory Rate 20 18 Blood Pressure 141/94 H Pulse Oximetry 100 99 10/19/19 22:34 10/19/19 23:59 10/20/19 00:00 Temperature 97.2 F L Pulse Rate 94 87 86 Respiratory Rate 19 18 18 Blood Pressure 151/94 H Pulse Oximetry 100 10/20/19 00:06 10/20/19 01:37 10/20/19 01:55 Temperature Pulse Rate 99 96 94 Respiratory Rate 18 18 18 Blood Pressure Pulse Oximetry
--- NOTE | 2019-10-20 17:00 | PM.IMPN ---
Progress Note: A&P Assessment and Plan (1) Gallbladder abscess: Code(s): K81.0 - Acute cholecystitis Status: Acute Assessment and Plan: Has two percutaneous drains in place. On Imipenem day # 11 MDRO isolated. (2) Respiratory failure: Code(s): J96.90 - Respiratory failure, unspecified, unspecified whether with hypoxia or hypercapnia Status: Acute Assessment and Plan: Back on mechanical ventilation. Possible ARDS. Hypoxemic resp failure. (3) Atrial fibrillation: Code(s): I48.91 - Unspecified atrial fibrillation Status: Acute Assessment and Plan: On metoprolol Not a candidate for AC. (4) CHF (congestive heart failure): Qualifiers: Heart failure type: systolic Heart failure chronicity: chronic Qualified Code(s): I50.22 - Chronic systolic (congestive) heart failure Code(s): I50.9 - Heart failure, unspecified Status: Chronic Assessment and Plan: Lasix 40 mg IV q 12. (5) Chronic alcohol use: Code(s): Z72.89 - Other problems related to lifestyle Status: Chronic Subjective Date/time seen: Intubated and sedated. 10/20/19 17:00 Review of Systems Review of Systems: ROS unobtainable: Yes unobtainable due to endotracheal tube Exam Const: Other: Intubated and sedated Neck: Neck: supple Resp: Auscultation: rhonchi Cardio: Rate: regular rate Rhythm: regular rhythm GI: Other: Drainage tubes present on the RUQ. No obvious tenderness or guarding. Neuro: Other: Sedated and intubated. Objective Data Vital Signs Vital Signs: Vital Signs - 24 hr 10/19/19 18:00 10/19/19 18:25 10/19/19 19:45 Temperature 96.8 F L Pulse Rate 87 99 85 Respiratory Rate 18 18 18 Blood Pressure 120/86 Pulse Oximetry 100 100 10/19/19 19:58 10/19/19 20:00 10/19/19 20:10 Temperature 96.9 F L Pulse Rate 93 91 97 Respiratory Rate 18 18 Blood Pressure 129/94 H Pulse Oximetry 100 10/19/19 20:31 10/19/19 22:25 10/19/19 22:31 Temperature 97.2 F L Pulse Rate 90 94 83 Respiratory Rate 20 18 Blood Pressure 141/94 H Pulse Oximetry 100 99 10/19/19 22:34 10/19/19 23:59 10/20/19 00:00 Temperature 97.2 F L Pulse Rate 94 87 86 Respiratory Rate 19 18 18 Blood Pressure 151/94 H Pulse Oximetry 100 10/20/19 00:06 10/20/19 01:37 10/20/19 01:55 Temperature Pulse Rate 99 96 94 Respiratory Rate 18 18 18 Blood Pressure Pulse Oximetry 99 10/20/19 02:00 10/20/19 02:04 10/20/19 03:23 Temperature 97.7 F Pulse Rate 93 88 77 Respiratory Rate 18 18 18 Blood Pressure 141/99 H Pulse Oximetry 100 100 10/20/19 04:00 10/20/19 04:30 10/20/19 04:50 Temperature 98.1 F Pulse Rate 108 H 96 98 Respiratory Rate 24 H 18 Blood Pressure 118/82 Pulse Oximetry 100 99 10/20/19 06:00 10/20/19 08:00 10/20/19 08:08 Temperature 98.0 F 97.8 F Pulse Rate 88 85 88 Respiratory Rate 18 18 18 Blood Pressure 155/107 H 155/103 H Pulse Oximetry 98 98 10/20/19 10:00 10/20/19 11:45 10/20/19 12:00 Temperature 97.4 F L 97.4 F L Pulse Rate 82 83 101 H Respiratory Rate 18 18 Blood Pressure 155/94 H 160/114 H Pulse Oximetry 96 96 98 10/20/19 13:41 10/20/19 13:52 10/20/19 14:00 Temperature 97.5 F L Pulse Rate 83 86 82 Respiratory Rate 18 18 18 Blood Pressure 162/91 H Pulse Oximetry 95 10/20/19 14:25 10/20/19 16:00 Temperature 97.2 F L Pulse Rate 83 97 Respiratory Rate 18 Blood Pressure 157/94 H Pulse Oximetry 96 96 Intake/Output Intake/Output: Intake & Output 10/17/19 10/18/19 10/19/19 10/20/19 23:59 23:59 23:59 23:59 Intake Total 1835.3 1587 1176 824 Output Total 630 1315 2340 475 Balance 1205.3 339 -1164 349 Meds/Results Medications: Active Medications Generic Name Dose Route Start Last Admin Trade Name Freq PRN Reason Stop Dose Admin Acetaminophen 650 mg 10/10/19 11:24 10/10/19 12:18 Tylenol Tablet PO 650 mg Q6H PRN
[2019-10-20 18:23] LABS: Glucose Point of Care 159 (65-105)
[2019-10-20 23:17] LABS: Glucose Point of Care 158 (65-105)
[2019-10-21] VITALS (42 sets, daily range): BP systolic 119–162; BP diastolic 89–109; PULSE 10–125; RESP 18–24; TEMP 36.3–37.6; O2SAT 88–100
[2019-10-21] MEDS: ALBUMIN HUMAN 25% 25 GM/100 ML 200 ML IVPB ×2 (00:03→08:11)
--- NOTE | 2019-10-21 01:19 | PC.NURSE ---
Spoke with Dr. Mcmillan regarding persistent HTN. Increase Metoprolol to 25mg bid. Give 12.5mg Metoprolol Tartrate x1 now.
[2019-10-21] MEDS: METOPROLOL TARTRATE 12.5 MG TABLET PO (01:39)
[2019-10-21] MEDS: IPRATROPIUM BR 0.02% INH SOLN 0.5 MG/2.5 ML VIAL INHALATION ×4 (02:35→21:01)
[2019-10-21 04:24] LABS: Hematocrit 24.7 % (42.0-52.0); Hemoglobin 7.8 g/dL (14.0-18.0); Mean Corpuscular HGB Conc 31.6 g/dl (32-36); Mean Corpuscular Hemoglobin 30.6 pg (26-34); Mean Corpuscular Volume 96.9 fl (80-100); Mean Platelet Volume 10.2 fl (7.4-10.4); Platelet Count Result 216 k/mm3 (150-375); Red Blood Count 2.55 M/mm3 (4.6-6.20); Red Cell Distribution Width 15.4 % (11.5-14.5); White Blood Count 9.1 K/mm3 (4.5-10.0)
[2019-10-21 04:36] LABS: INR 1.4; Prothrombin Time 16.6 Seconds (11.1-14.7)
[2019-10-21 04:37] LABS: Blood Urea Nitrogen 12 mg/dL (9-20); Calcium 9.8 mg/dL (8.4-10.2); Carbon Dioxide 29 mmol/L (22-30); Chloride 99 mmol/L (98-107); Estimated CRCL calculation 145 ml/min; Estimated Glomerular Filt Rate > 60; Glucose 180 mg/dL (75-110); Magnesium 2.2 mg/dL (1.6-2.3); Partial Thromboplastin Time 37.3 SECONDS (22.3-36.8); Phosphorus 3.8 mg/dL (2.5-4.5); Potassium 4.1 mmol/L (3.4-5.0); Sodium 137 mmol/L (137-145)
[2019-10-21 04:47] LABS: Alveolar/Arterial O2 Gradient 104.6 mmHg; Base Excess ABG 0.7 mEq/l (+/-2.0); Carboxyhemoglobin 0.3 % THb (0-2.0); Fractional Inspired Oxygen 30 %; HCO3 ABG 23.9 mEq/l (22.0-26.0); Methemoglobin ABG 0.5 %THb (0-1.5); Oxygen Content ABG 11.2 %vol (16.0-22.0); Oxygen Saturation ABG 95.5 % (95.0-100.0); Oxyhemoglobin 91.9 % THb (90.0-100.0); PCO2 ABG 32.5 mmHg (35.0-45.0); PO2 ABG 71.1 mmHg (80.0-100.0); PO2 FiO2 Ratio Arterial Blood 2.37 %; Reduced Hemoglobin 7.3 %THb (0-5.0); Total Hemoglobin 8.6 g/dL (12.0-18.0); pH ABG 7.484 (7.350-7.450)
[2019-10-21 04:48] LABS: Arterial Blood Gas Vent Mode CMV; Arterial Blood Gas Ventilator rate 18 /MIN; Device VENTILATOR; Modified Allen's Test Pass; Site Drawn LEFT RADIAL
[2019-10-21 04:49] LABS: Arterial Blood Gas PEEP 8 cmH2O; Arterial Blood Gas Tidal Volume 420 ml
[2019-10-21] MEDS: methylPREDNISolone SOD SUCC 40 MG VIAL IV PUSH ×4 (05:05→23:00)
[2019-10-21] MEDS: CENTRAL LINE FLUSH 10 ML IV PUSH ×4 (05:05→20:16)
[2019-10-21] MEDS: METOPROLOL TARTRATE 25 MG TABLET PO ×2 (08:10→20:13)
[2019-10-21] MEDS: PANTOPRAZOLE SODIUM IV 40 MG VIAL IV PUSH (08:10)
[2019-10-21] MEDS: TIMOLOL MALEATE 0.5% OP SOLN 5 ML BTL 1 DROP EACH EYE ×2 (08:10→20:13)
[2019-10-21] MEDS: FUROSEMIDE INJ 40 MG/4 ML VIAL IV PUSH (08:10)
[2019-10-21] MEDS: DORNASE ALFA INH SOLN 1 MG/ML 2.5 ML AMP 2.5 MG INHALATION ×2 (08:25→21:01)
--- NOTE | 2019-10-21 09:17 | WPDINTPN ---
Progress Note: A&P Assessment and Plan (1) Acute respiratory failure: Qualifiers: Respiratory failure complication: hypoxia Qualified Code(s): J96.01 - Acute respiratory failure with hypoxia Code(s): J96.00 - Acute respiratory failure, unspecified whether with hypoxia or hypercapnia Status: Acute Assessment and Plan: Patient seen in the IMU was found to be in impending respiratory failure with gurgling respirations and chest congestion. Discussed with spouse with Dinorah, who was agreeable for intubation. -patient was successfully intubated in the ICU on 10/15/2019 - 10/17 -extubated after successful weaning trial but after few hours had difficulty clearing secretions and hypoxia. Patient was placed on non-rebreather mass and suction frequently as he was still awake and following commands to try to avoid re-intubation. 10/18 worsening respiratory distress with worsening hypoxia, tachycardic tachypneic, rattling secretions in his upper airway. Reintubated with difficulty -Pulmonary consulted and bronchoscopy was done. Culture sent -chest x-ray and ABGs reviewed, wean FiO2 and PEEP -advance ET tube by 3 cm -last sputum cultures have been obtained and yeast which is likely a colonizer -patient is on Pulmozyme for thick secretions -patient is overall volume overloaded and continue Lasix as allowed by blood pressure - Albumin added to decrease 3rd spacing -question aspiration pneumonia and patient is on Primaxin which I will continue (2) Acute encephalopathy: Code(s): G93.40 - Encephalopathy, unspecified Status: Acute Assessment and Plan: Patient was in the intermediate unit and was found to be in acute encephalopathy, obtunded, -likely due to hypoxia, possible liver dysfunction, severe sepsis -ammonia levels are normal -improved -patient now be sedated for intubation and at respiratory failure but does follow commands (3) Gallbladder abscess: Code(s): K81.0 - Acute cholecystitis Status: Acute Assessment and Plan: Patient has 2 drains. Both drains have minimal drainage now Surgery service managing Abscess culture growing ESBL E coli, infectious disease following the patient, patient is on Primaxin CT A/P 10/18 IMPRESSION: 1. Moderate volume of ascites with areas of peritoneal thickening and enhancement in left paracolic gutter and in the pelvis, likely an exudate. 2. Rim-enhancing fluid collection at the undersurface of right hepatic lobe, consistent with abscess. 3. Pigtail drains in the gallbladder fossa and anteroinferior to the liver. No residual fluid in these locations. I spoke to Dr. Gonzales yesterday. Plan is to to place another drain in the abscess under right hepatic lobe today by radiology Continue antibiotic therapy at this time. (4) COPD (chronic obstructive pulmonary disease): Code(s): J44.9 - Chronic obstructive pulmonary disease, unspecified Status: Chronic Assessment and Plan: Continue bronchodilators (5) Afib: Qualifiers: Atrial fibrillation type: unspecified Qualified Code(s): I48.91 - Unspecified atrial fibrillation Code(s): I48.91 - Unspecified atrial fibrillation Status: Acute Assessment and Plan: AFib RVR with rate controlled on aspirin 325 mg suppository as he is NPO Patient was seen by Cardiology and not felt to be candidate for anticoagulation due to history of falls and alcohol abuse in the past. Since admission patient has had multiple invasive procedures including 1 planned today and may need to go to surgery hence anticoagulation not felt to be safe (6) Chronic alcohol use: Code(s): Z72.89 - Other problems related to lifestyle Status: Chronic Assessment and Plan: Patient has had alcohol dependence. Thiamine and folate. (7) CHF (congestive heart failure): Qualifiers: Heart failure type: systolic Heart failure chronicity: chronic Qualified Code(s)
[2019-10-21] MEDS: ASPIRIN 325 MG TABLET FEED TUBE (10:43)
[2019-10-21] MEDS: MULTIVITAMINS THERAPEUTIC TAB (*BKC) 1 TABLET PO (10:44)
[2019-10-21] MEDS: FOLIC ACID 1 MG TABLET PO (10:44)
[2019-10-21] MEDS: THIAMINE HCL 100 MG TABLET PO (10:44)
--- NOTE | 2019-10-21 11:02 | PCDIET ---
ICU Rounding Note: Patient is NPO awaiting additional drain placement with plan to initiate tube feedings later today. Recommend Vital 1.5 at goal of 50mL/hr with Pro-Stat flush BID for total of 1850kcal and 104g protein over 22 hours/day. Last recorded weight is 108.3kg which is decreased. -I/O. Bowel Motility: +BM today. Labs Reviewed: Hgb (7.8), Hct (24.7), Glu (180) Meds Noted: Albumin, Fentanyl, MVI, Protonix, Dulcolax, Folic Acid, Miralax, Precedex, Lasix, Thiamine, Primaxin, Atrovent, Xopenex, Solu Medrol Additional Notes: Coccyx reddened. No other documented skin issues, aside of abdominal drains. Following daily in ICU rounds. Assessing/reassessing every Saturday/Saturday.
[2019-10-21 11:24] LABS: Glucose Point of Care 180 (65-105)
--- NOTE | 2019-10-21 11:46 | PM.PNGS ---
Progress Note: A&P Assessment and Plan (1) Gallbladder abscess: Code(s): K81.0 - Acute cholecystitis Status: Acute Assessment and Plan: cont drain and abx, TF slowly to goal (2) Hepatic abscess: Code(s): K75.0 - Abscess of liver Status: Acute Assessment and Plan: cont drain and abx (3) Acute respiratory failure: Qualifiers: Respiratory failure complication: hypoxia Qualified Code(s): J96.01 - Acute respiratory failure with hypoxia Code(s): J96.00 - Acute respiratory failure, unspecified whether with hypoxia or hypercapnia Status: Acute Assessment and Plan: mgmt per intensive care team Subjective Subjective Date/Time Seen: 10/21/19 11:46 intubated, alert and following commands, had U/S perc drainage this am Review of Systems Review of Systems: ROS unobtainable: Yes unobtainable due to endotracheal tube Exam Const: General: no acute distress Resp: Auscultation: crackles and diminished lung sounds Cardio: Rate: regular rate Rhythm: regular rhythm GI: Other: Soft, sl dist, drains x 3 in RUQ Objective Data Vital Signs Vital Signs: Vital Signs - 24 hr 10/20/19 12:00 10/20/19 13:41 10/20/19 13:52 Temperature 36.3 C L Pulse Rate 101 H 83 86 Respiratory Rate 18 18 18 Blood Pressure 160/114 H Pulse Oximetry 98 10/20/19 14:00 10/20/19 14:25 10/20/19 16:00 Temperature 36.4 C L 36.2 C L Pulse Rate 82 83 97 Respiratory Rate 18 18 Blood Pressure 162/91 H 157/94 H Pulse Oximetry 95 96 96 10/20/19 17:20 10/20/19 18:00 10/20/19 19:42 Temperature 36.2 C L Pulse Rate 85 90 95 Respiratory Rate 18 Blood Pressure 166/102 H Pulse Oximetry 96 94 10/20/19 19:59 10/20/19 20:00 10/20/19 20:29 Temperature 36.3 C L Pulse Rate 83 88 89 Respiratory Rate 18 18 18 Blood Pressure 155/109 H Pulse Oximetry 92 93 10/20/19 20:31 10/20/19 20:43 10/20/19 21:03 Temperature Pulse Rate 91 92 110 H Respiratory Rate 25 H Blood Pressure Pulse Oximetry 94 10/20/19 22:00 10/20/19 22:12 10/20/19 22:30 Temperature 36.3 C L Pulse Rate 93 98 92 Respiratory Rate 24 H 24 H Blood Pressure 164/115 H Pulse Oximetry 93 95 10/20/19 23:00 10/20/19 23:17 10/21/19 00:00 Temperature 36.3 C L 36.4 C L Pulse Rate 81 85 96 Respiratory Rate 18 20 18 Blood Pressure 165/103 H 162/109 H Pulse Oximetry 93 93 93 10/21/19 01:05 10/21/19 01:39 10/21/19 02:00 Temperature 36.4 C Pulse Rate 87 98 94 Respiratory Rate 18 18 Blood Pressure 154/107 H Pulse Oximetry 92 10/21/19 02:35 10/21/19 02:41 10/21/19 02:45 Temperature Pulse Rate 93 93 92 Respiratory Rate 18 18 Blood Pressure Pulse Oximetry 92 10/21/19 03:05 10/21/19 03:54 10/21/19 04:00 Temperature 36.5 C 36.4 C L Pulse Rate 94 95 87 Respiratory Rate 19 18 18 Blood Pressure 146/96 H 138/103 H Pulse Oximetry 94 93 93 10/21/19 04:30 10/21/19 05:03 10/21/19 05:32 Temperature 36.3 C L Pulse Rate 94 94 96 Respiratory Rate 18 18 Blood Pressure 135/102 H Pulse Oximetry 94 94 10/21/19 05:56 10/21/19 06:00 10/21/19 06:33 Temperature 36.4 C L Pulse Rate 97 97 99 Respiratory Rate 18 18 Blood Pressure 138/106 H Pulse Oximetry 95 10/21/19 07:41 10/21/19 08:00 10/21/19 08:10 Temperature 36.6 C Pulse Rate 94 96 104 H Respiratory Rate 18 18 Blood Pressure 136/103 H Pulse Oximetry 98 97 10/21/19 08:25 10/21/19 08:35 10/21/19 09:52 Temperature Pulse Rate 94 95 103 H Respiratory Rate 18 18 Blood Pressure Pulse Oximetry 96 10/21/19 09:54 10/21/19 10:00 10/21/19 10:59 Temperature 36.6 C Pulse Rate 103 H 110 H 95 Respiratory Rate 18 18 Blood Pressure 130/101 H Pulse Oximetry 98 95 07/15/20 11:17 10/21/19 11:23 Temperature Pulse Rate 110 H 108 H Respiratory Rate 18 21 H Blood Pressure Pulse Oximetry 88 L Intake/Output Intake/Output: Intake & Output
--- NOTE | 2019-10-21 15:02 | PM.IMPN ---
Progress Note: A&P Assessment and Plan (1) Gallbladder abscess: Code(s): K81.0 - Acute cholecystitis Status: Acute Assessment and Plan: Has two percutaneous drains in place. On Imipenem day # 12 MDRO isolated. (2) Respiratory failure: Code(s): J96.90 - Respiratory failure, unspecified, unspecified whether with hypoxia or hypercapnia Status: Acute Assessment and Plan: Back on mechanical ventilation. Possible ARDS. Hypoxemic resp failure. (3) Atrial fibrillation: Code(s): I48.91 - Unspecified atrial fibrillation Status: Acute Assessment and Plan: On metoprolol Not a candidate for AC. (4) CHF (congestive heart failure): Qualifiers: Heart failure type: systolic Heart failure chronicity: chronic Qualified Code(s): I50.22 - Chronic systolic (congestive) heart failure Code(s): I50.9 - Heart failure, unspecified Status: Chronic Assessment and Plan: On Lasix (5) Chronic alcohol use: Code(s): Z72.89 - Other problems related to lifestyle Status: Chronic Subjective Date/time seen: Intubated and sedated, family at the bedside. 10/21/19 15:02 Review of Systems Review of Systems: All systems reviewed & are unremarkable except as noted in HPI and below Exam Const: Other: Intubated and sedated. Neck: Neck: no JVD Resp: Auscultation: crackles, rales and diminished lung sounds Cardio: Rate: tachycardic Other: Irregularly irregular rhythm GI: Other: Drainage tubes present on the RUQ, no obvious tenderness. Neuro: Other: Sedated. Objective Data Vital Signs Vital Signs: Vital Signs - 24 hr 10/20/19 16:00 10/20/19 17:20 10/20/19 18:00 Temperature 97.2 F L 97.2 F L Pulse Rate 97 85 90 Respiratory Rate 18 18 Blood Pressure 157/94 H 166/102 H Pulse Oximetry 96 96 94 10/20/19 19:42 10/20/19 19:59 10/20/19 20:00 Temperature 97.3 F L Pulse Rate 95 83 88 Respiratory Rate 18 18 Blood Pressure 155/109 H Pulse Oximetry 92 93 10/20/19 20:29 10/20/19 20:31 10/20/19 20:43 Temperature Pulse Rate 89 91 92 Respiratory Rate 18 Blood Pressure Pulse Oximetry 94 10/20/19 21:03 10/20/19 22:00 10/20/19 22:12 Temperature 97.3 F L Pulse Rate 110 H 93 98 Respiratory Rate 25 H 24 H 24 H Blood Pressure 164/115 H Pulse Oximetry 93 10/20/19 22:30 10/20/19 23:00 10/20/19 23:17 Temperature 97.3 F L Pulse Rate 92 81 85 Respiratory Rate 18 20 Blood Pressure 165/103 H Pulse Oximetry 95 93 93 10/21/19 00:00 10/21/19 01:05 10/21/19 01:39 Temperature 97.5 F L Pulse Rate 96 87 98 Respiratory Rate 18 18 Blood Pressure 162/109 H Pulse Oximetry 93 10/21/19 02:00 10/21/19 02:35 10/21/19 02:41 Temperature 97.6 F Pulse Rate 94 93 93 Respiratory Rate 18 18 Blood Pressure 154/107 H Pulse Oximetry 92 92 10/21/19 02:45 10/21/19 03:05 10/21/19 03:54 Temperature 97.7 F Pulse Rate 92 94 95 Respiratory Rate 18 19 18 Blood Pressure 146/96 H Pulse Oximetry 94 93 10/21/19 04:00 10/21/19 04:30 10/21/19 05:03 Temperature 97.5 F L 97.4 F L Pulse Rate 87 94 94 Respiratory Rate 18 18 Blood Pressure 138/103 H 135/102 H Pulse Oximetry 93 94 94 10/21/19 05:32 10/21/19 05:56 10/21/19 06:00 Temperature 97.5 F L Pulse Rate 96 97 97 Respiratory Rate 18 18 Blood Pressure 138/106 H Pulse Oximetry 95 10/21/19 06:33 10/21/19 07:41 10/21/19 08:00 Temperature 97.8 F Pulse Rate 99 94 96 Respiratory Rate 18 18 18 Blood Pressure 136/103 H Pulse Oximetry 98 97 10/21/19 08:10 10/21/19 08:25 10/21/19 08:35 Temperature Pulse Rate 104 H 94 95 Respiratory Rate 18 18 Blood Pressure Pulse Oximetry 96 10/21/19 09:52 10/21/19 09:54 10/21/19 10:00 Temperature 98 F Pulse Rate 103 H 103 H 110 H Respiratory Rate 18 18 Blood Pressure 130/101 H Pulse Oximetry 98 10/21/19 10:59 10/21/19 11:17 10/21/19 1
[2019-10-21 17:27] LABS: Glucose Point of Care 217 (65-105)
[2019-10-21 20:57] LABS: Glucose Point of Care 207 (65-105)
[2019-10-21 23:24] LABS: Glucose Point of Care 227 (65-105)
[2019-10-22] VITALS (31 sets, daily range): BP systolic 102–120; BP diastolic 83–96; PULSE 98–130; RESP 15–24; TEMP 37–37.5; O2SAT 96–100
[2019-10-22] MEDS: IPRATROPIUM BR 0.02% INH SOLN 0.5 MG/2.5 ML VIAL INHALATION ×4 (02:44→21:18)
[2019-10-22 04:26] LABS: Alveolar/Arterial O2 Gradient 90.1 mmHg; Base Excess ABG 4.6 mEq/l (+/-2.0); Carboxyhemoglobin 0.3 % THb (0-2.0); Fractional Inspired Oxygen 30 %; HCO3 ABG 27.9 mEq/l (22.0-26.0); Methemoglobin ABG 0.4 %THb (0-1.5); Oxygen Content ABG 12.2 %vol (16.0-22.0); Oxygen Saturation ABG 96.8 % (95.0-100.0); Oxyhemoglobin 93.8 % THb (90.0-100.0); PCO2 ABG 36.4 mmHg (35.0-45.0); Reduced Hemoglobin 5.5 %THb (0-5.0); Total Hemoglobin 9.2 g/dL (12.0-18.0); pH ABG 7.503 (7.350-7.450)
[2019-10-22 04:28] LABS: Device VENTILATOR; Modified Allen's Test Pass; Site Drawn RIGHT RADIAL
[2019-10-22] MEDS: methylPREDNISolone SOD SUCC 40 MG VIAL IV PUSH (06:14)
[2019-10-22] MEDS: CENTRAL LINE FLUSH 10 ML IV PUSH ×3 (06:15→20:02)
[2019-10-22 06:30] LABS: Basophils Percent Auto 0.1 % (0.2-1.2); Hematocrit 25.3 % (42.0-52.0); Immature Granulocyte Absolute 0.03 K/mm3 (0.00-0.031); Immature Granulocyte Percent A 0.4 % (0-0.5); Lymphocytes Absolute Auto 1.03 K/mm3 (0.9-3.2); Lymphocytes Percent Auto 14.3 % (18.3-44.2); Mean Corpuscular HGB Conc 31.6 g/dl (32-36); Mean Corpuscular Hemoglobin 30.5 pg (26-34); Mean Corpuscular Volume 96.6 fl (80-100); Mean Platelet Volume 10.5 fl (7.4-10.4); Monocytes Absolute Auto 0.5 K/mm3 (0.1-0.6); Monocytes Percent Auto 7.2 % (2.6-8.5); Neutrophils Absolute Auto 5.6 K/mm3 (1.3-6.7); Platelet Count Result 248 k/mm3 (150-375); Red Blood Count 2.62 M/mm3 (4.6-6.20); Red Cell Distribution Width 15.7 % (11.5-14.5); White Blood Count 7.2 K/mm3 (4.5-10.0)
[2019-10-22 06:49] LABS: Blood Urea Nitrogen 23 mg/dL (9-20); Calcium 9.7 mg/dL (8.4-10.2); Carbon Dioxide 29 mmol/L (22-30); Chloride 98 mmol/L (98-107); Estimated CRCL calculation 107 ml/min; Estimated Glomerular Filt Rate > 60; Glucose 233 mg/dL (75-110); Potassium 3.9 mmol/L (3.4-5.0); Sodium 136 mmol/L (137-145)
[2019-10-22] MEDS: DORNASE ALFA INH SOLN 1 MG/ML 2.5 ML AMP 2.5 MG INHALATION ×2 (08:14→21:17)
--- NOTE | 2019-10-22 08:30 | WPDINTPN ---
Progress Note: A&P Assessment and Plan (1) Acute respiratory failure: Qualifiers: Respiratory failure complication: hypoxia Qualified Code(s): J96.01 - Acute respiratory failure with hypoxia Code(s): J96.00 - Acute respiratory failure, unspecified whether with hypoxia or hypercapnia Status: Acute Assessment and Plan: Patient seen in the IMU was found to be in impending respiratory failure with gurgling respirations and chest congestion. Discussed with spouse with Dinorah, who was agreeable for intubation. -patient was successfully intubated in the ICU on 10/15/2019 - 10/17 -extubated after successful weaning trial but after few hours had difficulty clearing secretions and hypoxia. Patient was placed on non-rebreather mass and suction frequently as he was still awake and following commands to try to avoid re-intubation. 10/18 worsening respiratory distress with worsening hypoxia, tachycardic tachypneic, rattling secretions in his upper airway. Reintubated with difficulty -Pulmonary consulted and bronchoscopy was done. Culture sent -chest x-ray and ABGs reviewed, wean FiO2 and PEEP -pressure support ventilation trial -last sputum cultures have been obtained and yeast which is likely a colonizer -patient is on Pulmozyme for thick secretions -patient is overall volume overloaded and continue Lasix as allowed by blood pressure -question aspiration pneumonia and patient is on Primaxin which I will continue (2) Acute encephalopathy: Code(s): G93.40 - Encephalopathy, unspecified Status: Acute Assessment and Plan: Patient was in the intermediate unit and was found to be in acute encephalopathy, obtunded, -likely due to hypoxia, possible liver dysfunction, severe sepsis -ammonia levels are normal -improved overall -patient now be sedated for intubation and at respiratory failure but does follow commands -sedation holiday daily (3) Gallbladder abscess: Code(s): K81.0 - Acute cholecystitis Status: Acute Assessment and Plan: Patient has 2 drains. Both drains have minimal drainage now Surgery service managing Abscess culture growing ESBL E coli, infectious disease following the patient, patient is on Primaxin CT A/P 10/18 IMPRESSION: 1. Moderate volume of ascites with areas of peritoneal thickening and enhancement in left paracolic gutter and in the pelvis, likely an exudate. 2. Rim-enhancing fluid collection at the undersurface of right hepatic lobe, consistent with abscess. 3. Pigtail drains in the gallbladder fossa and anteroinferior to the liver. No residual fluid in these locations. 10/20- CT-guided drain placed. Out more than 200 cc since placement. Small amount of drainage from 1st drain and minimal from 2nd Continue antibiotic therapy at this time. (4) COPD (chronic obstructive pulmonary disease): Code(s): J44.9 - Chronic obstructive pulmonary disease, unspecified Status: Chronic Assessment and Plan: Continue bronchodilators (5) Afib: Qualifiers: Atrial fibrillation type: unspecified Qualified Code(s): I48.91 - Unspecified atrial fibrillation Code(s): I48.91 - Unspecified atrial fibrillation Status: Acute Assessment and Plan: AFib RVR with rate controlled on aspirin 325 mg suppository as he is NPO Patient was seen by Cardiology and not felt to be candidate for anticoagulation due to history of falls and alcohol abuse in the past. Since admission patient has had multiple invasive procedures and may need to go to surgery hence anticoagulation not felt to be safe (6) Chronic alcohol use: Code(s): Z72.89 - Other problems related to lifestyle Status: Chronic Assessment and Plan: Patient has had alcohol dependence. Thiamine and folate. (7) CHF (congestive heart failure): Qualifiers: Heart failure type: systolic Heart failure chronicity: chronic Qualified Code(s): I50.22 - Chronic s
--- NOTE | 2019-10-22 09:22 | WPDCNINT ---
Loom Changer Consult Note Consult date: 10/22/19 HPI: Lloyd Redman is a 69 year old male [facility] Past Medical History Medical History (Updated 10/22/19 @ 09:18 by Brennan Mason MD) Acute cholecystitis 07/2019 treated with antibiotic therapy Alcohol abuse Atrial fibrillation Not on long-term anticoagulation due to high has bled score. BPH (benign prostatic hyperplasia) CHF (congestive heart failure) Mild systolic dysfunction noted on echocardiogram from 07/27/2019 45-50%, mild mitral valve regurgitation, mild aortic valve sclerosis and biatrial dilatation Chronic anemia COPD (chronic obstructive pulmonary disease) Essential hypertension GERD (gastroesophageal reflux disease) Histoplasmosis History of BPH History of TIAs Hyperlipidemia Vitamin D deficiency Surgical History Surgical History History of bilateral cataract extraction History of vasectomy Male circumcision Family History Family History Sibling Polio Father Lung cancer Mother Hypertension Social History Social History (Updated 10/08/19 @ 20:28 by Tanja Sorensen NP) Social History: Patient drinks (3) 4 oz drinks of Tequila a day prior to his hospitalization in July. Currently he is drinking 2 margaritas a day with 1 shot of Tequila each. He has smoked 1.5 packs cigarettes per day for 55 years. Primary care physician: Dr. Jean-Claude Crawford Code status: Full code. Surrogate decision maker is valentino Ni phone number [phone]. The patient has 2 children. 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 Smoking packs per day: 1.5 Smoking cigarettes per day: 30.0 Years smoked: 54 Smoking pack-years: 81.00 Smoking status: Current every day smoker Tobacco type: cigarettes Second hand tobacco smoke exposure: Yes Alcohol intake: current Drinks per week: 2 Substance use: former Substance use type: marijuana Last use: 1970 Additional living arrangements comments: He lives at home with his . Gender identity (if verbalized by the patient): Male Spiritual care concerns: No Agree to blood products: Yes Meds Home Medications and Allergies Home Medications Medication Instructions Recorded Confirmed Type aspirin 325 mg PO DAILY 07/25/19 10/08/19 History cholecalciferol (vitamin D3) 125 mcg PO DAILY 07/25/19 10/08/19 History [Vitamin D3] folic acid 1 mg tablet 1 mg PO DAILY #90 tablet 09/07/19 10/08/19 Rx multivitamin 1 cap PO DAILY 09/07/19 10/08/19 History potassium chloride 10 mEq 10 meq PO DAILY #90 tablet 09/07/19 10/08/19 Rx tablet,extended release pravastatin 40 mg tablet 40 mg PO QAM #90 tablet 09/07/19 10/08/19 Rx terazosin 10 mg capsule 10 mg PO HS #90 cap 09/07/19 10/08/19 Rx carvedilol 37.5 mg PO Q12H #90 tablet 10/05/19 10/08/19 Rx diltiazem HCl 240 mg PO Q12HR #60 cap 10/05/19 10/08/19 Rx omeprazole 20 mg capsule,delayed 20 mg PO DAILY #90 cap 10/05/19 10/08/19 Rx release thiamine HCl (vitamin B1) [Vitamin 100 mg PO QAM #30 tablet 10/05/19 10/08/19 Rx B-1] Allergies Allergy/AdvReac Type Severity Reaction Status Date / Time Penicillins Allergy Severe Hives / Verified 10/08/19 12:16 Red Face Vital Signs Vital Signs - 24 hr 10/21/19 09:52 10/21/19 09:54 10/21/19 10:00 Temperature 36.6 C Pulse Rate 103 H 103 H 110 H Respiratory Rate 18 18 Blood Pressure 130/101 H Pulse Oximetry 98 10/21/19 10:59 10/21/19 11:17 10/21/19 11:23 Temperature Pulse Rate 95 110 H 108 H Respiratory Rate 18 21 H Blood Pressure Pulse Oximetry 95 88 L 10/21/19 12:00 10/21/19 13:46 10/21/19 14:00 Temperature 36.8 C 37.2 C Pulse Rate 100 96 118 H Respiratory Rate 18 18 24 H Blood Pressure 132/102 H 132/105 H Pulse Oximetry 94 96 96 10/21/19 16:00 10/21/19 16:16 10/21/19 17:50 Temperature 37.2 C Pulse Rate 107 H 98 101 H Respiratory Ra
[2019-10-22] MEDS: INSULIN ASPART (*BKC) 100 UNITS/ML SUB-Q ×2 (09:35→12:39)
[2019-10-22] MEDS: INSULIN GLARGINE (*BKC) 100 UNITS/ML 15 UNITS SUB-Q (09:36)
[2019-10-22] MEDS: PANTOPRAZOLE SODIUM IV 40 MG VIAL IV PUSH (09:39)
[2019-10-22] MEDS: FUROSEMIDE INJ 40 MG/4 ML VIAL IV PUSH ×2 (09:39→17:41)
[2019-10-22] MEDS: ENOXAPARIN 40 MG/0.4 ML SYRINGE SUB-Q (09:39)
[2019-10-22] MEDS: TIMOLOL MALEATE 0.5% OP SOLN 5 ML BTL 1 DROP EACH EYE ×2 (09:40→20:01)
[2019-10-22] MEDS: THIAMINE HCL 100 MG TABLET PO (09:40)
[2019-10-22] MEDS: MULTIVITAMINS THERAPEUTIC TAB (*BKC) 1 TABLET PO (09:40)
[2019-10-22] MEDS: FOLIC ACID 1 MG TABLET PO (09:40)
[2019-10-22] MEDS: METOPROLOL TARTRATE 25 MG TABLET PO ×2 (09:40→20:02)
[2019-10-22] MEDS: ASPIRIN 325 MG TABLET FEED TUBE (09:40)
[2019-10-22 09:48] LABS: Glucose Point of Care 234 (65-105)
[2019-10-22] MEDS: BISACODYL 10 MG SUPPOSITORY RECTAL (10:03)
[2019-10-22] MEDS: polyethylene glycoL 3350 17 GM POWD.PACK PO (10:03)
--- NOTE | 2019-10-22 11:16 | PCDIET ---
ICU Rounding Note: Tube feedings resumed, and patient tolerating Vital 1.5 at 40mL/hr. Recommended increase to 50mL/hr goal rate which was authorized by . Last recorded weight is 108.2kg which is stable. Bowel Motility: Last documented BM on 10/21/19. Labs Reviewed: Hgb (8.0), Hct (25.3), Glu (233), Na (136) Meds Noted: Precedex, Lasix, Novolog, Lantus, Fentanyl, Folic Acid, Atrovent, Xopenex, MVI, Primaxin, Protonix, Vitamin B1 Additional Notes: Coccyx reddened. Abdomen with drains. May consider change to Glucerna 1.2 if no improvement in blood sugars with addition of Novolog and Lantus. Following daily in ICU rounds. Assessing/reassessing every Saturday/Saturday.
[2019-10-22 12:24] LABS: Glucose Point of Care 205 (65-105)
--- NOTE | 2019-10-22 13:00 | PM.PNGS ---
Progress Note: A&P Assessment and Plan (1) Gallbladder abscess: Code(s): K81.0 - Acute cholecystitis Status: Acute Assessment and Plan: Continue perc drain to suction, bilious output from the drain in the gallbladder fossa. TF may continue to be advanced slowly to goal as tolerated. Would plan to leave this drain in place for at least a few weeks. (2) Hepatic abscess: Code(s): K75.0 - Abscess of liver Status: Acute Assessment and Plan: Continue perc drains to suction, draining adequately. Continue antibiotics. (3) Acute respiratory failure: Qualifiers: Respiratory failure complication: hypoxia Qualified Code(s): J96.01 - Acute respiratory failure with hypoxia Code(s): J96.00 - Acute respiratory failure, unspecified whether with hypoxia or hypercapnia Status: Acute Assessment and Plan: Still intubated. Wean and manage per Director Data Analytics. Additional Plan Discussed plan of care with Dr. Christian acosta. Subjective Subjective Date/Time Seen: 10/22/19 12:00 Interval history: Patient intubated and sedated. Able to shake his head yes or no to some questions. Denies abdominal pain. No acute events overnight. Perc drains #1 and 2 with minimal output overnight and drain #3 with 280 cc recorded output overnight. Review of Systems Review of Systems: ROS unobtainable: Yes unobtainable due to endotracheal tube Exam Const: General: comfortable Other: Intubated and sedated. Resp: Auscultation: diminished lung sounds Cardio: Rate: tachycardic Rhythm: regular rhythm GI: Inspection: other (mildly distended) GI Palp: Yes Soft to palpation, No Tenderness to palpation present (GI), No Guarding due to palpation present (GI) and No Rebound tenderness present Auscultation: normal bowel sounds Other: RUQ perc drains x 3 - drain#1 bilious drainage, drain #2/3 with yellow serous drainage Urinary Catheter: Urinary Catheter: patent and draining Skin: General skin exam: normal color Rashes: no rashes Other: Stool pooling in groin on my exam. Neuro: Other: Sedated, calm, and comfortable. Arousable with eyes open to name. Follows commands and nods appropriately. Psych: Other: ELIANA Objective Data Vital Signs Vital Signs: Vital Signs - 24 hr 10/21/19 13:46 10/21/19 14:00 10/21/19 16:00 Temperature 98.9 F 99.0 F Pulse Rate 96 118 H 107 H Respiratory Rate 18 24 H 23 H Blood Pressure 132/105 H 125/102 H Pulse Oximetry 96 96 98 10/21/19 16:16 10/21/19 17:50 10/21/19 18:00 Temperature 99.3 F Pulse Rate 98 101 H 114 H Respiratory Rate 18 Blood Pressure 123/102 H Pulse Oximetry 96 96 10/21/19 20:00 10/21/19 20:13 10/21/19 20:18 Temperature 99.5 F Pulse Rate 111 H 10 L 112 H Respiratory Rate 24 H 24 H Blood Pressure 119/91 H Pulse Oximetry 100 10/21/19 20:20 10/21/19 21:02 10/21/19 21:09 Temperature Pulse Rate 109 H 119 H 113 H Respiratory Rate 23 H 24 H Blood Pressure Pulse Oximetry 96 10/21/19 22:00 10/21/19 23:40 10/22/19 00:00 Temperature 99.6 F 99.4 F Pulse Rate 95 115 H 104 H Respiratory Rate 20 18 Blood Pressure 119/89 120/84 Pulse Oximetry 95 96 97 10/22/19 02:00 10/22/19 02:10 10/22/19 02:48 Temperature 99 F Pulse Rate 100 104 H 108 H Respiratory Rate 18 18 18 Blood Pressure 118/96 H Pulse Oximetry 96 98 10/22/19 04:00 10/22/19 04:23 10/22/19 08:00 Temperature 98.9 F 99.4 F Pulse Rate 102 H 111 H 102 H Respiratory Rate 15 20 Blood Pressure 112/83 102/84 Pulse Oximetry 98 98 98 10/22/19 08:15 10/22/19 08:19 10/22/19 09:40 Temperature Pulse Rate 110 H 114 H 115 H Respiratory Rate 20 Blood Pressure Pulse Oximetry 98 10/22/19 10:00 10/22/19 11:23 10/22/19 11:38 Temperature Pulse Rate 118 H 116 H 116 H Respiratory Rate 24 H 24 H Blood Pressure 114/89 Pulse Oximetry 97 97 97 10/22/19 12:00 Temperature 99.1 F Pulse Rate 114 H Respiratory Rate 20
--- NOTE | 2019-10-22 14:00 | WPDINFPN2 ---
Progress Note: A&P Assessment and Plan (1) Gallbladder abscess: Code(s): K81.0 - Acute cholecystitis Status: Acute Assessment and Plan: 1. Acute cholecystitis with abscess, MDRO isolated. Now with [address] 2. Dysphagia, suspect swallowing dysfunction due to debility and muscle deconditioning. 3. Respiratory distress with lung infiltrates, possible ARDS due to #1. Remains on vent. CXR noted 4. Yeast in sputum, colonizer and not pathogenic in this patient. Washing just obtained. REC Imipenem # 13, continue. Will maintain IV therapy at least until after repeat CT results available sometime this week. No dose adjustments needed, renal clearance acceptable. No additional antibiotics needed regarding the infiltrates. Subjective Date/time seen: 10/22/19 14:00 Interval history: opens eyes Exam Narrative: Exam Narrative: afebrile Const: General: no acute distress Eyes: General: appearance normal, both eyes and all related structures Resp: Effort & Inspection: normal respiratory effort Auscultation: clear to auscultation bilaterally Cardio: Rate: regular rate Rhythm: regular rhythm Heart sounds: no murmurs GI: Inspection: distended GI Palp: Yes Soft to palpation, No Tenderness to palpation present (GI) and No Guarding due to palpation present (GI) Percussion: Yes tympanic to percussion Auscultation: abnormal bowel sounds Skin: General skin exam: normal color and no rashes or lesions noted Objective Data Vital Signs Vital Signs: Vital Signs - 24 hr 10/21/19 16:00 10/21/19 16:16 10/21/19 17:50 Temperature 37.2 C Pulse Rate 107 H 98 101 H Respiratory Rate 23 H Blood Pressure 125/102 H Pulse Oximetry 98 96 10/21/19 18:00 10/21/19 20:00 10/21/19 20:13 Temperature 37.4 C 37.5 C Pulse Rate 114 H 111 H 10 L Respiratory Rate 18 24 H Blood Pressure 123/102 H 119/91 H Pulse Oximetry 96 100 10/21/19 20:18 10/21/19 20:20 10/21/19 21:02 Temperature Pulse Rate 112 H 109 H 119 H Respiratory Rate 24 H 23 H Blood Pressure Pulse Oximetry 96 10/21/19 21:09 10/21/19 22:00 10/21/19 23:40 Temperature 37.6 C Pulse Rate 113 H 95 115 H Respiratory Rate 24 H 20 Blood Pressure 119/89 Pulse Oximetry 95 96 10/22/19 00:00 10/22/19 02:00 10/22/19 02:10 Temperature 37.4 C 37.2 C Pulse Rate 104 H 100 104 H Respiratory Rate 18 18 18 Blood Pressure 120/84 118/96 H Pulse Oximetry 97 96 10/22/19 02:48 10/22/19 04:00 10/22/19 04:23 Temperature 37.2 C Pulse Rate 108 H 102 H 111 H Respiratory Rate 18 15 Blood Pressure 112/83 Pulse Oximetry 98 98 98 10/22/19 08:00 10/22/19 08:15 10/22/19 08:19 Temperature 37.4 C Pulse Rate 102 H 110 H 114 H Respiratory Rate 20 20 Blood Pressure 102/84 Pulse Oximetry 98 98 10/22/19 09:40 10/22/19 10:00 10/22/19 11:23 Temperature Pulse Rate 115 H 118 H 116 H Respiratory Rate 24 H Blood Pressure 114/89 Pulse Oximetry 97 97 10/22/19 11:38 10/22/19 12:00 10/22/19 13:53 Temperature 37.3 C Pulse Rate 116 H 114 H 119 H Respiratory Rate 24 H 20 24 H Blood Pressure 113/91 H Pulse Oximetry 97 100 Intake/Output Intake/Output: Intake & Output 10/19/19 10/20/19 10/21/19 10/22/19 23:59 23:59 23:59 23:59 Intake Total 1176 1424 1300 1241 Output Total 2342 0983 1474 647 [facility] -[phone] Meds/Results Medications: Active Medications Generic Name Dose Route Start Last Admin Trade Name Freq PRN Reason Stop Dose Admin Acetaminophen 650 mg 10/10/19 11:24 10/10/19 12:18 Tylenol Tablet PO 650 mg Q6H PRN Administration Mild Pain (1-3) or Fever Aspirin 325 mg 10/17/19 08:00 10/22/19 09:40 Aspirin FEED TUBE 325 mg DAILY@0800 MONET Administration Dextrose 12.5 gm 10/22/19 07:39 Dextrose 50% Syringe IV PUSH PRN PRN Hypoglycemia Protocol Dornase Fernando 2.5 mg 10/14/19 20:00 10/22/19 08:14 Pulmozyme INHALATION 2.5 mg Q12
--- NOTE | 2019-10-22 18:34 | PM.PNPUL ---
Progress Note: A&P Assessment and Plan (1) Acute respiratory failure: Qualifiers: Respiratory failure complication: hypoxia Qualified Code(s): J96.01 - Acute respiratory failure with hypoxia Code(s): J96.00 - Acute respiratory failure, unspecified whether with hypoxia or hypercapnia Status: Acute Assessment and Plan: recurrent acute respiratory failure due to secretions, inability to maintain his airway due to encephalopathy, COPD, sepsis, and generalized illness. He was intubated October 14, exntubated October 17, and reintubated October 18 with improvemeent in aeration, still has infiltrates bilaterally. (2) COPD (chronic obstructive pulmonary disease): Code(s): J44.9 - Chronic obstructive pulmonary disease, unspecified Status: Chronic (3) Smoking: Code(s): F17.200 - Nicotine dependence, unspecified, uncomplicated Status: Acute Subjective Date/time seen: 10/22/19 18:34 Review of Systems Review of Systems: ROS unobtainable: Yes unobtainable due to endotracheal tube Exam Const: General: comfortable Other: sedated, orally intubated Eyes: General: appearance normal, both eyes and all related structures Neck: Neck: supple Resp: Auscultation: crackles Cardio: Rate: tachycardic Rhythm: regular rhythm Urinary Catheter: Urinary Catheter: patent and draining Skin: General skin exam: normal color Neuro: Other: sedated Objective Data Vital Signs Vital Signs: Vital Signs - 24 hr 10/21/19 20:00 10/21/19 20:13 10/21/19 20:18 Temperature 37.5 C Pulse Rate 111 H 10 L 112 H Respiratory Rate 24 H 24 H Blood Pressure 119/91 H Pulse Oximetry 100 10/21/19 20:20 10/21/19 21:02 10/21/19 21:09 Temperature Pulse Rate 109 H 119 H 113 H Respiratory Rate 23 H 24 H Blood Pressure Pulse Oximetry 96 10/21/19 22:00 10/21/19 23:40 10/22/19 00:00 Temperature 37.6 C 37.4 C Pulse Rate 95 115 H 104 H Respiratory Rate 20 18 Blood Pressure 119/89 120/84 Pulse Oximetry 95 96 97 10/22/19 02:00 10/22/19 02:10 10/22/19 02:48 Temperature 37.2 C Pulse Rate 100 104 H 108 H Respiratory Rate 18 18 18 Blood Pressure 118/96 H Pulse Oximetry 96 98 10/22/19 04:00 10/22/19 04:23 10/22/19 08:00 Temperature 37.2 C 37.4 C Pulse Rate 102 H 111 H 102 H Respiratory Rate 15 20 Blood Pressure 112/83 102/84 Pulse Oximetry 98 98 98 10/22/19 08:15 10/22/19 08:19 10/22/19 08:25 Temperature Pulse Rate 110 H 114 H 123 H Respiratory Rate 20 24 H Blood Pressure Pulse Oximetry 98 10/22/19 09:40 10/22/19 10:00 10/22/19 11:23 Temperature Pulse Rate 115 H 118 H 116 H Respiratory Rate 24 H Blood Pressure 114/89 Pulse Oximetry 97 97 10/22/19 11:38 10/22/19 12:00 10/22/19 13:53 Temperature 37.3 C Pulse Rate 116 H 114 H 119 H Respiratory Rate 24 H 20 24 H Blood Pressure 113/91 H Pulse Oximetry 97 100 10/22/19 13:56 10/22/19 14:00 10/22/19 14:06 Temperature 37.4 C Pulse Rate 116 H 112 H 120 H Respiratory Rate 20 19 Blood Pressure 116/88 Pulse Oximetry 98 99 10/22/19 16:00 10/22/19 17:20 10/22/19 18:00 Temperature 37.4 C Pulse Rate 106 H 103 H 108 H Respiratory Rate 18 22 H Blood Pressure 119/87 116/83 Pulse Oximetry 99 100 99 Intake/Output Intake/Output: Intake & Output 10/19/19 10/20/19 10/21/19 10/22/19 23:59 23:59 23:59 23:59 Intake Total 1176 1424 1300 1751 Output Total 8791 [id number] [id number] 2021 [facility] -[phone] Meds/Results Medications: Active Medications Generic Name Dose Route Start Last Admin Trade Name Freq PRN Reason Stop Dose Admin Acetaminophen 650 mg 10/10/19 11:24 10/10/19 12:18 Tylenol Tablet PO 650 mg Q6H PRN Administration Mild Pain (1-3) or Fever Aspirin 325 mg 10/17/19 08:00 10/22/19 09:40 Aspirin FEED TUBE 325 mg DAILY@0800 MONET Administration Dextrose 12.5 gm 10/22/19 07:39 Dextrose 50% Syringe IV PUSH PRN
[2019-10-22 18:53] LABS: Glucose Point of Care 199 (65-105)
[2019-10-22 23:04] LABS: Glucose Point of Care 151 (65-105)
[2019-10-23] VITALS (34 sets, daily range): BP systolic 91–117; BP diastolic 63–95; PULSE 80–129; RESP 18–20; TEMP 37.4–37.6; O2SAT 96–99
[2019-10-23] MEDS: IPRATROPIUM BR 0.02% INH SOLN 0.5 MG/2.5 ML VIAL INHALATION ×4 (02:30→20:36)
[2019-10-23 03:59] LABS: Eosinophils Percent Auto 0.1 % (0-4.4); Hematocrit 26.9 % (42.0-52.0); Hemoglobin 8.6 g/dL (14.0-18.0); Immature Granulocyte Absolute 0.04 K/mm3 (0.00-0.031); Immature Granulocyte Percent A 0.4 % (0-0.5); Lymphocytes Percent Auto 23.9 % (18.3-44.2); Mean Corpuscular Hemoglobin 30.7 pg (26-34); Mean Corpuscular Volume 96.1 fl (80-100); Mean Platelet Volume 10.3 fl (7.4-10.4); Monocytes Absolute Auto 0.6 K/mm3 (0.1-0.6); Monocytes Percent Auto 6.2 % (2.6-8.5); Neutrophils Absolute Auto 6.4 K/mm3 (1.3-6.7); Neutrophils Percent Auto 69.4 % (45.5-73.1); Platelet Count Result 203 k/mm3 (150-375); Red Cell Distribution Width 15.6 % (11.5-14.5); White Blood Count 9.2 K/mm3 (4.5-10.0)
[2019-10-23 04:16] LABS: Alanine Aminotransferase 10 U/L (4-50); Albumin Level 3.3 g/dL (3.5-5.1); Alkaline Phosphatase 125 U/L (38-126); Aspartate Amino Transferase 16 U/L (17-59); Bilirubin,Total 0.4 mg/dL (0.2-1.3); Blood Urea Nitrogen 26 mg/dL (9-20); Calcium 9.1 mg/dL (8.4-10.2); Carbon Dioxide 32 mmol/L (22-30); Chloride 97 mmol/L (98-107); Estimated CRCL calculation 107 ml/min; Estimated Glomerular Filt Rate > 60; Glucose 159 mg/dL (75-110); Potassium 3.1 mmol/L (3.4-5.0); Sodium 138 mmol/L (137-145)
[2019-10-23 06:20] LABS: Base Excess ABG 6.9 mEq/l (+/-2.0); HCO3 ABG 30.2 mEq/l (22.0-26.0); Oxygen Saturation ABG 96.3 % (95.0-100.0); PO2 ABG 75.5 mmHg (80.0-100.0); Total Hemoglobin 9.9 g/dL (12.0-18.0)
[2019-10-23 06:21] LABS: Carboxyhemoglobin 0.3 % THb (0-2.0); Methemoglobin ABG 0.5 %THb (0-1.5); Oxyhemoglobin 93.1 % THb (90.0-100.0); Reduced Hemoglobin 6.1 %THb (0-5.0)
[2019-10-23 06:22] LABS: Alveolar/Arterial O2 Gradient 93.8 mmHg; Device VENTILATOR; Fractional Inspired Oxygen 30 %; Modified Allen's Test Pass; PO2 FiO2 Ratio Arterial Blood 2.52 %; Site Drawn RIGHT RADIAL
[2019-10-23 06:23] LABS: Arterial Blood Gas PEEP 8 cmH2O; Arterial Blood Gas Tidal Volume 420 ml; Arterial Blood Gas Vent Mode CMV; Arterial Blood Gas Ventilator rate 18 /MIN
[2019-10-23] MEDS: CENTRAL LINE FLUSH 10 ML IV PUSH ×4 (07:50→21:26)
--- NOTE | 2019-10-23 08:00 | WPDINTPN ---
Progress Note: A&P Assessment and Plan (1) Acute respiratory failure: Qualifiers: Respiratory failure complication: hypoxia Qualified Code(s): J96.01 - Acute respiratory failure with hypoxia Code(s): J96.00 - Acute respiratory failure, unspecified whether with hypoxia or hypercapnia Status: Acute Assessment and Plan: Patient seen in the IMU was found to be in impending respiratory failure with gurgling respirations and chest congestion. Discussed with spouse with Dinorah, who was agreeable for intubation. -patient was successfully intubated in the ICU on 10/15/2019 - 10/17 -extubated after successful weaning trial but after few hours had difficulty clearing secretions and hypoxia. Patient was placed on non-rebreather mass and suction frequently as he was still awake and following commands to try to avoid re-intubation. 10/18 worsening respiratory distress with worsening hypoxia, tachycardic tachypneic, rattling secretions in his upper airway. Reintubated with difficulty -Pulmonary consulted and bronchoscopy was done. Culture sent and negative as of now -chest x-ray and ABGs reviewed -decrease PEEP to 5 , tidal volume to 380 mL -5/5 pressure support ventilation trial -last sputum cultures have been obtained and yeast which is likely a colonizer -patient is on Pulmozyme for thick secretions -patient is overall volume overloaded and continue Lasix as allowed by blood pressure -question aspiration pneumonia and patient is on Primaxin which I will continue (2) Acute encephalopathy: Code(s): G93.40 - Encephalopathy, unspecified Status: Acute Assessment and Plan: Patient was in the intermediate unit and was found to be in acute encephalopathy, obtunded, -likely due to hypoxia, possible liver dysfunction, severe sepsis -ammonia levels are normal -improved overall -patient now lightly sedated with Precedex -sedation holiday daily (3) Gallbladder abscess: Code(s): K81.0 - Acute cholecystitis Status: Acute Assessment and Plan: Surgery service managing Abscess culture growing ESBL E coli, infectious disease following the patient, patient is on Primaxin CT A/P 10/18 IMPRESSION: 1. Moderate volume of ascites with areas of peritoneal thickening and enhancement in left paracolic gutter and in the pelvis, likely an exudate. 2. Rim-enhancing fluid collection at the undersurface of right hepatic lobe, consistent with abscess. 3. Pigtail drains in the gallbladder fossa and anteroinferior to the liver. No residual fluid in these locations. 10/20- CT-guided drain placed. Out more than 200 cc since placement. Small amount of drainage from 1st drain and minimal from 2nd Continue antibiotic therapy at this time. Plan to repeat CT on Saturday by surgery decide on future of drains referred to general surgery note for details (4) COPD (chronic obstructive pulmonary disease): Code(s): J44.9 - Chronic obstructive pulmonary disease, unspecified Status: Chronic Assessment and Plan: Continue bronchodilators (5) Afib: Qualifiers: Atrial fibrillation type: unspecified Qualified Code(s): I48.91 - Unspecified atrial fibrillation Code(s): I48.91 - Unspecified atrial fibrillation Status: Acute Assessment and Plan: AFib RVR with rate controlled on aspirin 325 mg suppository as he is NPO Patient was seen by Cardiology and not felt to be candidate for anticoagulation due to history of falls and alcohol abuse in the past. Since admission patient has had multiple invasive procedures and may need to go to surgery hence anticoagulation not felt to be safe (6) Chronic alcohol use: Code(s): Z72.89 - Other problems related to lifestyle Status: Chronic Assessment and Plan: Patient has had alcohol dependence. Thiamine and folate. (7) CHF (congestive heart failure): Qualifiers: Heart failure type: systolic Heart failure c
[2019-10-23] MEDS: POTASSIUM CHLORIDE 20 MEQ PACKET (FOR LIQUID) 40 MEQ PO ×2 (08:24→13:27)
[2019-10-23] MEDS: ASPIRIN 325 MG TABLET FEED TUBE (08:25)
[2019-10-23] MEDS: ENOXAPARIN 40 MG/0.4 ML SYRINGE SUB-Q (08:25)
[2019-10-23] MEDS: FUROSEMIDE INJ 40 MG/4 ML VIAL IV PUSH ×2 (08:26→17:21)
[2019-10-23] MEDS: METOPROLOL TARTRATE 25 MG TABLET PO ×2 (08:26→21:26)
[2019-10-23] MEDS: FOLIC ACID 1 MG TABLET PO (08:27)
[2019-10-23] MEDS: PANTOPRAZOLE SODIUM IV 40 MG VIAL IV PUSH (08:27)
[2019-10-23] MEDS: THIAMINE HCL 100 MG TABLET PO (08:27)
[2019-10-23] MEDS: TIMOLOL MALEATE 0.5% OP SOLN 5 ML BTL 1 DROP EACH EYE ×2 (08:27→21:26)
[2019-10-23] MEDS: MULTIVITAMINS THERAPEUTIC TAB (*BKC) 1 TABLET PO (08:27)
[2019-10-23] MEDS: INSULIN GLARGINE (*BKC) 100 UNITS/ML 15 UNITS SUB-Q (08:30)
[2019-10-23 08:39] LABS: Glucose Point of Care 194 (65-105)
--- NOTE | 2019-10-23 09:14 | PM.PNGS ---
Progress Note: A&P Assessment and Plan (1) Gallbladder abscess: Code(s): K81.0 - Acute cholecystitis Status: Acute Assessment and Plan: drain 1 with bilious drainage, at this point likely cholecystostomy tube, will need to leave drain for at least 4 weeks and obtain cholangiogram, drain 2 can likely be removed next week, drain 3 with serous drainage, we will re-evaluate next Saturday with repeat CT scan, continue IV antibiotics per ID (2) Hepatic abscess: Code(s): K75.0 - Abscess of liver Status: Acute Assessment and Plan: see above (3) Respiratory failure: Code(s): J96.90 - Respiratory failure, unspecified, unspecified whether with hypoxia or hypercapnia Status: Acute Assessment and Plan: management per issuer, plan weaning trial today Subjective Subjective Date/Time Seen: 10/23/19 09:14 no acute issues yesterday, patient continues to be intubated, is following commands and quite alert Review of Systems Review of Systems: ROS unobtainable: Yes unobtainable due to endotracheal tube Exam Const: General: no acute distress Resp: Auscultation: clear to auscultation bilaterally Cardio: Rate: regular rate Rhythm: regular rhythm GI: Other: S, sl dist, NT, drains x 3 c mild drainage Objective Data Vital Signs Vital Signs: Vital Signs - 24 hr 10/22/19 09:40 10/22/19 10:00 10/22/19 11:23 Temperature Pulse Rate 115 H 118 H 116 H Respiratory Rate 24 H Blood Pressure 114/89 Pulse Oximetry 97 97 10/22/19 11:38 10/22/19 12:00 10/22/19 13:53 Temperature 37.3 C Pulse Rate 116 H 114 H 119 H Respiratory Rate 24 H 20 24 H Blood Pressure 113/91 H Pulse Oximetry 97 100 10/22/19 13:56 10/22/19 14:00 10/22/19 14:06 Temperature 37.4 C Pulse Rate 116 H 112 H 120 H Respiratory Rate 20 19 Blood Pressure 116/88 Pulse Oximetry 98 99 10/22/19 16:00 10/22/19 17:20 10/22/19 18:00 Temperature 37.4 C Pulse Rate 106 H 103 H 108 H Respiratory Rate 18 22 H Blood Pressure 119/87 116/83 Pulse Oximetry 99 100 99 10/22/19 20:00 10/22/19 20:02 10/22/19 20:09 Temperature 37.5 C Pulse Rate 130 H 108 H 103 H Respiratory Rate 19 20 Blood Pressure 110/90 Pulse Oximetry 100 10/22/19 20:10 10/22/19 20:16 10/22/19 21:18 Temperature Pulse Rate 101 H 113 H 103 H Respiratory Rate 18 18 Blood Pressure Pulse Oximetry 100 10/22/19 21:26 10/22/19 22:00 10/22/19 23:05 Temperature 37.0 C Pulse Rate 106 H 106 H 98 Respiratory Rate 18 23 H Blood Pressure 114/89 Pulse Oximetry 99 99 10/23/19 00:00 10/23/19 02:00 10/23/19 02:30 Temperature 37.6 C Pulse Rate 91 88 109 H Respiratory Rate 18 18 19 Blood Pressure 116/89 115/95 H Pulse Oximetry 98 98 10/23/19 02:40 10/23/19 03:03 10/23/19 03:46 Temperature Pulse Rate 99 80 111 H Respiratory Rate 18 18 Blood Pressure Pulse Oximetry 98 10/23/19 04:00 10/23/19 06:00 10/23/19 08:26 Temperature 37.5 C 37.4 C Pulse Rate 107 H 104 H 107 H Respiratory Rate 18 18 Blood Pressure 100/79 108/80 Pulse Oximetry 98 98 Intake/Output Intake/Output: Intake & Output 10/20/19 10/21/19 10/22/19 10/23/19 23:59 23:59 23:59 23:59 Intake Total 1424 1300 1951 820 Output Total 4424 [address] [place] [address] [phone] Meds/Results Medications: Active Medications Generic Name Dose Route Start Last Admin Trade Name Freq PRN Reason Stop Dose Admin Acetaminophen 650 mg 10/10/19 11:24 10/10/19 12:18 Tylenol Tablet PO 650 mg Q6H PRN Administration Mild Pain (1-3) or Fever Aspirin 325 mg 10/17/19 08:00 10/23/19 08:25 Aspirin FEED TUBE 325 mg DAILY@0800 MONET Administration Dextrose 12.5 gm 10/22/19 07:39 Dextrose 50% Syringe IV PUSH PRN PRN Hypoglycemia Protocol Dornase Fernando 2.5 mg 10/14/19 20:00 10/22/19 21:17 Pulmozyme INHALATION 2.5 mg Q12HRT MONET Administration Enoxapa
[2019-10-23] MEDS: DORNASE ALFA INH SOLN 1 MG/ML 2.5 ML AMP 2.5 MG INHALATION ×2 (09:53→20:37)
--- NOTE | 2019-10-23 10:51 | PCDIET ---
Nutrition Follow-Up Complete: Nutrition Diagnosis: Inadequate oral intake related to multiple medical issues as evidenced by NPO diet, previous meal refusals on advanced diet. Nutrition Goal: Patient to meet estimated needs. Goal met. Patient tolerating Vital 1.5 at 50mL/hr. Residuals 150mL and below. Plan for SBT today. Last recorded weight is 105.8 kg which is decreased from last review. -I/O. Bowel Motility: BM x 3 on 10/22/19. Labs Reviewed: Hgb (8.6), Hct (26.9), Glu (159), K (3.1), Alb (3.3) Meds Noted: Precedex, Folic Acid, Lasix, Novolog, Lantus, Atrovent, MVI, Protonix, Miralax, KCl, Vitamin B1 Additional Notes: Coccyx reddened. Abdomen with drains. Will continue to monitor with same goals. Nutrition Monitoring and Evaluation: Follow up every Saturday/Saturday. Follow daily in ICU rounds.
[2019-10-23 12:32] LABS: Glucose Point of Care 158 (65-105)
--- NOTE | 2019-10-23 14:09 | WPDINFPN2 ---
Progress Note: A&P Assessment and Plan (1) Gallbladder abscess: Code(s): K81.0 - Acute cholecystitis Status: Acute Assessment and Plan: 1. Acute cholecystitis with abscess, MDRO isolated. Now with [address] His infection is resolved by microbiology testing/exam/labs 2. Dysphagia. 3. Respiratory distress with lung infiltrates, possible ARDS due to #1. Remains on vent. 4. Yeast in sputum, colonizer and not pathogenic in this patient. Washing just obtained. REC Imipenem # 14, stop given above, as well as weighing risks and benefits of further therapy. Surgical plan noted. Subjective Date/time seen: 10/23/19 14:09 Interval history: awake tries to communicate through ETT Exam Narrative: Exam Narrative: afebrile Const: General: no acute distress Eyes: General: appearance normal, both eyes and all related structures Resp: Effort & Inspection: normal respiratory effort Auscultation: clear to auscultation bilaterally Cardio: Rate: regular rate Rhythm: regular rhythm Heart sounds: no murmurs GI: Inspection: distended GI Palp: Yes Soft to palpation, No Tenderness to palpation present (GI) and No Guarding due to palpation present (GI) Percussion: Yes normal to percussion Auscultation: abnormal bowel sounds Skin: General skin exam: no rashes or lesions noted Objective Data Vital Signs Vital Signs: Vital Signs - 24 hr 10/22/19 16:00 10/22/19 17:20 10/22/19 18:00 Temperature 37.4 C Pulse Rate 106 H 103 H 108 H Respiratory Rate 18 22 H Blood Pressure 119/87 116/83 Pulse Oximetry 99 100 99 10/22/19 20:00 10/22/19 20:02 10/22/19 20:09 Temperature 37.5 C Pulse Rate 130 H 108 H 103 H Respiratory Rate 19 20 Blood Pressure 110/90 Pulse Oximetry 100 10/22/19 20:10 10/22/19 20:16 10/22/19 21:18 Temperature Pulse Rate 101 H 113 H 103 H Respiratory Rate 18 18 Blood Pressure Pulse Oximetry 100 10/22/19 21:26 10/22/19 22:00 10/22/19 23:05 Temperature 37.0 C Pulse Rate 106 H 106 H 98 Respiratory Rate 18 23 H Blood Pressure 114/89 Pulse Oximetry 99 99 10/23/19 00:00 10/23/19 02:00 10/23/19 02:30 Temperature 37.6 C Pulse Rate 91 88 109 H Respiratory Rate 18 18 19 Blood Pressure 116/89 115/95 H Pulse Oximetry 98 98 10/23/19 02:40 10/23/19 03:03 10/23/19 03:46 Temperature Pulse Rate 99 80 111 H Respiratory Rate 18 18 Blood Pressure Pulse Oximetry 98 10/23/19 04:00 10/23/19 06:00 10/23/19 08:00 Temperature 37.5 C 37.4 C 37.4 C Pulse Rate 107 H 104 H 106 H Respiratory Rate 18 18 19 Blood Pressure 100/79 108/80 103/84 Pulse Oximetry 98 98 96 10/23/19 08:20 10/23/19 08:26 10/23/19 09:53 Temperature Pulse Rate 110 H 107 H 93 Respiratory Rate 18 Blood Pressure Pulse Oximetry 98 10/23/19 10:00 10/23/19 10:10 10/23/19 10:20 Temperature Pulse Rate 115 H 98 112 H Respiratory Rate 18 18 18 Blood Pressure 117/89 Pulse Oximetry 99 10/23/19 11:10 10/23/19 12:34 10/23/19 12:36 Temperature Pulse Rate 113 H 111 H 114 H Respiratory Rate 18 18 Blood Pressure Pulse Oximetry 97 10/23/19 13:00 10/23/19 13:10 Temperature Pulse Rate 113 H 110 H Respiratory Rate 18 18 Blood Pressure Pulse Oximetry 98 Intake/Output Intake/Output: Intake & Output 10/20/19 10/21/19 10/22/19 10/23/19 23:59 23:59 23:59 23:59 Intake Total 1424 1300 1951 1120 Output Total 5424 7435 2021 1600 [facility] -[phone] Meds/Results Medications: Active Medications Generic Name Dose Route Start Last Admin Trade Name Freq PRN Reason Stop Dose Admin Acetaminophen 650 mg 10/10/19 11:24 10/10/19 12:18 Tylenol Tablet PO 650 mg Q6H PRN Administration Mild Pain (1-3) or Fever Aspirin 325 mg 10/17/19 08:00 10/23/19 08:25 Aspirin FEED TUBE 325 mg DAILY@0800 MONET Administration Dextrose 12.5 gm 10/22/19 07:39 Dextrose 50% Syringe IV PUSH PRN PRN Hypoglycemi
[2019-10-23 14:22] LABS: Arterial Blood Gas PEEP 8 cmH2O; Arterial Blood Gas Tidal Volume 420 ml; Arterial Blood Gas Vent Mode CMV; Arterial Blood Gas Ventilator rate 18 /MIN
--- NOTE | 2019-10-23 15:51 | PM.IMPN ---
Progress Note: A&P Assessment and Plan (1) Gallbladder abscess: Code(s): K81.0 - Acute cholecystitis Status: Acute Assessment and Plan: Has two percutaneous drains in place. On Imipenem day # 14 MDRO isolated. Bc reordered (2) Respiratory failure: Code(s): J96.90 - Respiratory failure, unspecified, unspecified whether with hypoxia or hypercapnia Status: Acute Assessment and Plan: On mechanical ventilation. trying to wean off Possible ARDS. Hypoxemic resp failure. (3) Atrial fibrillation: Code(s): I48.91 - Unspecified atrial fibrillation Status: Acute Assessment and Plan: On metoprolol Not a candidate for AC. (4) CHF (congestive heart failure): Qualifiers: Heart failure type: systolic Heart failure chronicity: chronic Qualified Code(s): I50.22 - Chronic systolic (congestive) heart failure Code(s): I50.9 - Heart failure, unspecified Status: Chronic Assessment and Plan: On Lasix IV BID (5) Chronic alcohol use: Code(s): Z72.89 - Other problems related to lifestyle Status: Chronic Subjective Date/time seen: 10/23/19 15:51 Interval history: Discharged from here on 08/06/2019 where the patient had acute cholecystitis and general surgery recommended that the patient was a poor surgical candidate at the time. pT ADMIITED FOR SEPTIC SHOCK, UTi And acute cholecystitis. Seen by surgeon.spiking fever high heart rates pt is on a breathing trial weaning off vent, bc ordered Review of Systems Review of Systems: ROS unobtainable: Yes unobtainable due to endotracheal tube Exam Const: Other: Intubated with light sedation Resp: Auscultation: diminished lung sounds Cardio: Palpation: normal PMI Rate: regular rate, tachycardic and other Rhythm: regular rhythm Heart sounds: S1 normal heart sound present and S2 normal heart sound present Peripheral pulses: Peripheral pulses 2+ throughout GI: Other: Drainage tubes Objective Data Vital Signs Vital Signs: Vital Signs - 24 hr 10/22/19 16:00 10/22/19 17:20 10/22/19 18:00 Temperature 37.4 C Pulse Rate 106 H 103 H 108 H Respiratory Rate 18 22 H Blood Pressure 119/87 116/83 Pulse Oximetry 99 100 99 10/22/19 20:00 10/22/19 20:02 10/22/19 20:09 Temperature 37.5 C Pulse Rate 130 H 108 H 103 H Respiratory Rate 19 20 Blood Pressure 110/90 Pulse Oximetry 100 10/22/19 20:10 10/22/19 20:16 10/22/19 21:18 Temperature Pulse Rate 101 H 113 H 103 H Respiratory Rate 18 18 Blood Pressure Pulse Oximetry 100 10/22/19 21:26 10/22/19 22:00 10/22/19 23:05 Temperature 37.0 C Pulse Rate 106 H 106 H 98 Respiratory Rate 18 23 H Blood Pressure 114/89 Pulse Oximetry 99 99 10/23/19 00:00 10/23/19 02:00 10/23/19 02:30 Temperature 37.6 C Pulse Rate 91 88 109 H Respiratory Rate 18 18 19 Blood Pressure 116/89 115/95 H Pulse Oximetry 98 98 10/23/19 02:40 10/23/19 03:03 10/23/19 03:46 Temperature Pulse Rate 99 80 111 H Respiratory Rate 18 18 Blood Pressure Pulse Oximetry 98 10/23/19 04:00 10/23/19 06:00 10/23/19 08:00 Temperature 37.5 C 37.4 C 37.4 C Pulse Rate 107 H 104 H 106 H Respiratory Rate 18 18 19 Blood Pressure 100/79 108/80 103/84 Pulse Oximetry 98 98 96 10/23/19 08:20 10/23/19 08:26 10/23/19 09:53 Temperature Pulse Rate 110 H 107 H 93 Respiratory Rate 18 Blood Pressure Pulse Oximetry 98 10/23/19 10:00 10/23/19 10:10 10/23/19 11:10 Temperature Pulse Rate 115 H 98 113 H Respiratory Rate 18 18 Blood Pressure 117/89 Pulse Oximetry 99 97 10/23/19 12:10 10/23/19 12:30 10/23/19 12:34 Temperature 37.4 C Pulse Rate 129 H 123 H 111 H Respiratory Rate 18 18 18 Blood Pressure 100/63 Pulse Oximetry 96 98 10/23/19 12:36 10/23/19 13:00 10/23/19 13:10 Temperature Pulse Rate 114 H 113 H 110 H Respiratory Rate 18 18 18 Blood Pressure Pulse Oximetry
[2019-10-23 17:38] LABS: Glucose Point of Care 150 (65-105)
[2019-10-24] VITALS (29 sets, daily range): BP systolic 84–112; BP diastolic 62–97; PULSE 85–125; RESP 12–21; TEMP 36.3–36.6; O2SAT 95–100
[2019-10-24 01:25] LABS: Glucose Point of Care 151 (65-105)
[2019-10-24] MEDS: IPRATROPIUM BR 0.02% INH SOLN 0.5 MG/2.5 ML VIAL INHALATION ×4 (02:04→19:54)
[2019-10-24 04:35] LABS: Alveolar/Arterial O2 Gradient 91.6 mmHg; Base Excess ABG 7.5 mEq/l (+/-2.0); Carboxyhemoglobin 0.3 % THb (0-2.0); Fractional Inspired Oxygen 30 %; HCO3 ABG 30.7 mEq/l (22.0-26.0); Methemoglobin ABG 0.5 %THb (0-1.5); Oxygen Content ABG 13.2 %vol (16.0-22.0); Oxygen Saturation ABG 96.7 % (95.0-100.0); Oxyhemoglobin 93.5 % THb (90.0-100.0); PCO2 ABG 37.8 mmHg (35.0-45.0); PO2 ABG 77.9 mmHg (80.0-100.0); Reduced Hemoglobin 5.7 %THb (0-5.0)
[2019-10-24 04:37] LABS: Device VENTILATOR; Modified Allen's Test Unable to perform; Site Drawn RIGHT RADIAL; pH ABG 7.528 (7.350-7.450)
[2019-10-24 04:38] LABS: Arterial Blood Gas PEEP 5 cmH2O; Arterial Blood Gas Tidal Volume 420 ml; Arterial Blood Gas Vent Mode CMV; Arterial Blood Gas Ventilator rate 18 /MIN
[2019-10-24 05:21] LABS: Glucose Point of Care 162 (65-105)
[2019-10-24] MEDS: CENTRAL LINE FLUSH 10 ML IV PUSH ×3 (05:33→20:55)
[2019-10-24 06:10] LABS: Hematocrit 27.9 % (42.0-52.0); Hemoglobin 8.7 g/dL (14.0-18.0); Mean Corpuscular HGB Conc 31.2 g/dl (32-36); Mean Corpuscular Hemoglobin 30.3 pg (26-34); Mean Corpuscular Volume 97.2 fl (80-100); Mean Platelet Volume 10.8 fl (7.4-10.4); Platelet Count Result 193 k/mm3 (150-375); Red Blood Count 2.87 M/mm3 (4.6-6.20); Red Cell Distribution Width 15.8 % (11.5-14.5); White Blood Count 7.9 K/mm3 (4.5-10.0)
[2019-10-24 06:34] LABS: Alanine Aminotransferase 11 U/L (4-50); Albumin Level 3.1 g/dL (3.5-5.1); Alkaline Phosphatase 119 U/L (38-126); Aspartate Amino Transferase 21 U/L (17-59); Bilirubin,Total 0.5 mg/dL (0.2-1.3); Blood Urea Nitrogen 28 mg/dL (9-20); Calcium 8.7 mg/dL (8.4-10.2); Carbon Dioxide 34 mmol/L (22-30); Chloride 97 mmol/L (98-107); Estimated CRCL calculation 143 ml/min; Estimated Glomerular Filt Rate > 60; Glucose 157 mg/dL (75-110); Potassium 3.6 mmol/L (3.4-5.0); Sodium 137 mmol/L (137-145)
[2019-10-24] MEDS: PANTOPRAZOLE SODIUM IV 40 MG VIAL IV PUSH (08:18)
[2019-10-24] MEDS: FOLIC ACID 1 MG TABLET PO (08:18)
[2019-10-24] MEDS: ENOXAPARIN 40 MG/0.4 ML SYRINGE SUB-Q (08:18)
[2019-10-24] MEDS: ASPIRIN 325 MG TABLET FEED TUBE (08:18)
[2019-10-24] MEDS: METOPROLOL TARTRATE 25 MG TABLET PO (08:18)
[2019-10-24] MEDS: MULTIVITAMINS THERAPEUTIC TAB (*BKC) 1 TABLET PO (08:18)
[2019-10-24] MEDS: THIAMINE HCL 100 MG TABLET PO (08:18)
[2019-10-24] MEDS: TIMOLOL MALEATE 0.5% OP SOLN 5 ML BTL 1 DROP EACH EYE ×2 (08:19→20:54)
[2019-10-24] MEDS: INSULIN GLARGINE (*BKC) 100 UNITS/ML 15 UNITS SUB-Q (08:19)
[2019-10-24] MEDS: DORNASE ALFA INH SOLN 1 MG/ML 2.5 ML AMP 2.5 MG INHALATION ×2 (08:32→19:55)
--- NOTE | 2019-10-24 08:56 | WPDINTPN ---
Progress Note: A&P Assessment and Plan (1) Acute respiratory failure: Qualifiers: Respiratory failure complication: hypoxia Qualified Code(s): J96.01 - Acute respiratory failure with hypoxia Code(s): J96.00 - Acute respiratory failure, unspecified whether with hypoxia or hypercapnia Status: Acute Assessment and Plan: Patient seen in the IMU was found to be in impending respiratory failure with gurgling respirations and chest congestion. Discussed with spouse with Dinorah, who was agreeable for intubation. -patient was successfully intubated in the ICU on 10/15/2019 - 10/17 -extubated after successful weaning trial but after few hours had difficulty clearing secretions and hypoxia. Patient was placed on non-rebreather mass and suction frequently as he was still awake and following commands to try to avoid re-intubation. 10/18 worsening respiratory distress with worsening hypoxia, tachycardic tachypneic, rattling secretions in his upper airway. Reintubated with difficulty with significant swelling of the hypopharynx and around the vocal cords. Requiring assistance from anesthesia -Pulmonary consulted and bronchoscopy was done. Culture sent and negative as of now -chest x-ray and ABGs reviewed, chest x-ray continues to shows bilateral infiltrates -placed patient on ASV mode of ventilation, tolerating well, if patient tires out will place him back on CMV mode of ventilation. Patient has a good air leak when I deflated the ETT balloon -last sputum cultures have been obtained and yeast which is likely a colonizer -patient is on Pulmozyme for thick secretions -patient is overall volume overloaded and continue Lasix as allowed by blood pressure (2) Acute encephalopathy: Code(s): G93.40 - Encephalopathy, unspecified Status: Acute Assessment and Plan: RESOLVED Patient was in the intermediate unit and was found to be in acute encephalopathy, obtunded, -likely due to hypoxia, possible liver dysfunction, severe sepsis -ammonia levels are normal -improved overall -patient is on Precedex infusion, is awake, alert, follows simple commands in all extremities (3) Gallbladder abscess: Code(s): K81.0 - Acute cholecystitis Status: Acute Assessment and Plan: Surgery service managing Abscess culture growing ESBL E coli, infectious disease following the patient, patient is on Primaxin CT A/P 10/18 IMPRESSION: 1. Moderate volume of ascites with areas of peritoneal thickening and enhancement in left paracolic gutter and in the pelvis, likely an exudate. 2. Rim-enhancing fluid collection at the undersurface of right hepatic lobe, consistent with abscess. 3. Pigtail drains in the gallbladder fossa and anteroinferior to the liver. No residual fluid in these locations. 10/20- CT-guided drain placed. Out more than 200 cc since placement. Small amount of drainage from 1st drain and minimal from 2nd Continue antibiotic therapy at this time. Plan to repeat CT on Saturday by surgery decide on future of drains referred to general surgery note for details (4) COPD (chronic obstructive pulmonary disease): Code(s): J44.9 - Chronic obstructive pulmonary disease, unspecified Status: Chronic Assessment and Plan: Continue bronchodilators (5) Afib: Qualifiers: Atrial fibrillation type: unspecified Qualified Code(s): I48.91 - Unspecified atrial fibrillation Code(s): I48.91 - Unspecified atrial fibrillation Status: Acute Assessment and Plan: AFib RVR with rate controlled on aspirin 325 mg per tube feed Patient was seen by Cardiology and not felt to be candidate for anticoagulation due to history of falls and alcohol abuse in the past. Since admission patient has had multiple invasive procedures and may need to go to surgery hence anticoagulation not felt to be safe -increase metoprolol to 50 mg q.12 hours (6) Chronic alcohol use: Code(s): Z72.89 - O
[2019-10-24] MEDS: FUROSEMIDE INJ 40 MG/4 ML VIAL IV PUSH ×2 (10:33→20:53)
[2019-10-24 12:30] LABS: Glucose Point of Care 160 (65-105)
--- NOTE | 2019-10-24 16:41 | PM.IMPN ---
Progress Note: A&P Assessment and Plan (1) Gallbladder abscess: Code(s): K81.0 - Acute cholecystitis Status: Acute Assessment and Plan: Has three percutaneous drains in place. On Imipenem day # 14 MDRO isolated. Bc reordered yesterday. pt with liver abscess (2) Respiratory failure: Code(s): J96.90 - Respiratory failure, unspecified, unspecified whether with hypoxia or hypercapnia Status: Acute Assessment and Plan: On mechanical ventilation. trying to wean off Possible ARDS. Hypoxemic resp failure. (3) Atrial fibrillation: Code(s): I48.91 - Unspecified atrial fibrillation Status: Acute Assessment and Plan: On metoprolol Not a candidate for AC. (4) CHF (congestive heart failure): Qualifiers: Heart failure type: systolic Heart failure chronicity: chronic Qualified Code(s): I50.22 - Chronic systolic (congestive) heart failure Code(s): I50.9 - Heart failure, unspecified Status: Chronic Assessment and Plan: On Lasix IV BID (5) Chronic alcohol use: Code(s): Z72.89 - Other problems related to lifestyle Status: Chronic Assessment and Plan: On thiamine Subjective Date/time seen: 10/24/19 16:41 Interval history: Discharged from here on 08/06/2019 where the patient had acute cholecystitis and general surgery recommended that the patient was a poor surgical candidate at the time. pT ADMIITED FOR SEPTIC SHOCK, UTi And acute cholecystitis. Seen by surgeon. No fever today. High heart rates pt is on a breathing trial weaning off vent, bc ordered yesterday Review of Systems Review of Systems: ROS unobtainable: Yes unobtainable due to endotracheal tube Exam Narrative: Exam Narrative: Elderly appears chronically ill, on vent, light sedation Resp: Other: Bilateral poor air entry with harsh breath sounds Objective Data Vital Signs Vital Signs: Vital Signs - 24 hr 10/23/19 16:57 10/23/19 17:30 10/23/19 18:00 Temperature 37.4 C Pulse Rate 123 H 110 H 127 H Respiratory Rate 20 20 Blood Pressure 108/87 Pulse Oximetry 99 96 10/23/19 20:00 10/23/19 20:37 10/23/19 20:45 Temperature 37.5 C Pulse Rate 113 H 124 H 121 H Respiratory Rate 18 18 18 Blood Pressure 108/87 Pulse Oximetry 97 99 10/23/19 21:26 10/23/19 22:00 10/23/19 23:04 Temperature Pulse Rate 124 H 118 H 114 H Respiratory Rate 18 Blood Pressure 91/66 L Pulse Oximetry 98 99 10/24/19 00:00 10/24/19 01:57 10/24/19 02:00 Temperature 36.6 C Pulse Rate 100 101 H 92 Respiratory Rate 21 H 20 Blood Pressure 92/82 L 84/62 L Pulse Oximetry 97 95 10/24/19 02:04 10/24/19 04:00 10/24/19 04:11 Temperature 36.5 C Pulse Rate 96 117 H 108 H Respiratory Rate 18 18 Blood Pressure 107/73 Pulse Oximetry 96 96 98 10/24/19 06:00 10/24/19 08:00 10/24/19 08:18 Temperature 36.3 C L Pulse Rate 113 H 120 H 121 H Respiratory Rate 20 19 Blood Pressure 92/75 L 112/97 H Pulse Oximetry 97 98 10/24/19 08:32 10/24/19 08:38 10/24/19 08:43 Temperature Pulse Rate 125 H 106 H 115 H Respiratory Rate 14 12 Blood Pressure Pulse Oximetry 96 10/24/19 10:00 10/24/19 12:00 10/24/19 12:10 Temperature 36.5 C Pulse Rate 99 107 H 102 H Respiratory Rate 17 15 Blood Pressure 94/69 L 89/70 L Pulse Oximetry 97 97 96 10/24/19 14:00 10/24/19 14:45 10/24/19 15:22 Temperature Pulse Rate 106 H 113 H 109 H Respiratory Rate 17 17 Blood Pressure 94/70 L Pulse Oximetry 97 98 Intake/Output Intake/Output: Intake & Output 10/21/19 10/22/19 10/23/19 10/24/19 23:59 23:59 23:59 23:59 Intake Total 1300 1951 1870 734 Output Total 2017 4896 1510 1022 [place] -375 -71 -770 -286 Meds/Results Medications: Active Medications Generic Name Dose Route Start Last Admin Trade Name Freq PRN Reason Stop Dose Admin Acetaminophen 650 mg 10/10/19 11:24 10/10/19 12:18 Tylenol Tablet
[2019-10-24 17:50] LABS: Glucose Point of Care 125 (65-105)
[2019-10-24] MEDS: METOPROLOL TARTRATE 50 MG TAB PO (20:54)
[2019-10-24 23:48] LABS: Glucose Point of Care 135 (65-105)
[2019-10-25] VITALS (29 sets, daily range): BP systolic 90–111; BP diastolic 68–88; PULSE 15–117; RESP 10–18; TEMP 36–36.9; O2SAT 93–100
[2019-10-25] MEDS: IPRATROPIUM BR 0.02% INH SOLN 0.5 MG/2.5 ML VIAL INHALATION ×4 (00:57→19:51)
[2019-10-25 04:46] LABS: Alveolar/Arterial O2 Gradient 112.4 mmHg; Base Excess ABG 8.6 mEq/l (+/-2.0); Carboxyhemoglobin 0.3 % THb (0-2.0); Fractional Inspired Oxygen 30 %; HCO3 ABG 31.1 mEq/l (22.0-26.0); Methemoglobin ABG 0.4 %THb (0-1.5); Oxygen Content ABG 12.9 %vol (16.0-22.0); Oxygen Saturation ABG 94.3 % (95.0-100.0); Oxyhemoglobin 89.8 % THb (90.0-100.0); PO2 ABG 60.4 mmHg (80.0-100.0); PO2 FiO2 Ratio Arterial Blood 2.01 %; Reduced Hemoglobin 9.5 %THb (0-5.0); Total Hemoglobin 10.2 g/dL (12.0-18.0)
[2019-10-25 04:47] LABS: Arterial Blood Gas PEEP 5 cmH2O; Arterial Blood Gas Vent Mode ASV; Device VENTILATOR; Modified Allen's Test Unable to perform; Site Drawn LEFT RADIAL; pH ABG 7.567 (7.350-7.450)
[2019-10-25 05:29] LABS: Hematocrit 27.6 % (42.0-52.0); Hemoglobin 8.9 g/dL (14.0-18.0); Mean Corpuscular HGB Conc 32.2 g/dl (32-36); Mean Corpuscular Hemoglobin 31.2 pg (26-34); Mean Corpuscular Volume 96.8 fl (80-100); Mean Platelet Volume 10.5 fl (7.4-10.4); Platelet Count Result 171 k/mm3 (150-375); Red Blood Count 2.85 M/mm3 (4.6-6.20); White Blood Count 7.4 K/mm3 (4.5-10.0)
[2019-10-25] MEDS: CENTRAL LINE FLUSH 10 ML IV PUSH ×3 (05:36→22:23)
[2019-10-25 05:48] LABS: Alanine Aminotransferase 13 U/L (4-50); Alkaline Phosphatase 113 U/L (38-126); Aspartate Amino Transferase 20 U/L (17-59); Bilirubin,Total 0.7 mg/dL (0.2-1.3); Blood Urea Nitrogen 24 mg/dL (9-20); Calcium 8.8 mg/dL (8.4-10.2); Carbon Dioxide 36 mmol/L (22-30); Chloride 94 mmol/L (98-107); Estimated CRCL calculation 141 ml/min; Estimated Glomerular Filt Rate > 60; Glucose 154 mg/dL (75-110); Phosphorus 3.1 mg/dL (2.5-4.5); Potassium 3.1 mmol/L (3.4-5.0); Sodium 135 mmol/L (137-145)
[2019-10-25 05:50] LABS: Glucose Point of Care 155 (65-105)
[2019-10-25] MEDS: DORNASE ALFA INH SOLN 1 MG/ML 2.5 ML AMP 2.5 MG INHALATION ×2 (07:57→19:51)
[2019-10-25] MEDS: POTASSIUM CHLORIDE 20 MEQ PACKET (FOR LIQUID) 40 MEQ PO (08:51)
[2019-10-25] MEDS: METOPROLOL TARTRATE 50 MG TAB PO ×2 (08:52→20:35)
[2019-10-25] MEDS: TIMOLOL MALEATE 0.5% OP SOLN 5 ML BTL 1 DROP EACH EYE ×2 (08:52→20:35)
[2019-10-25] MEDS: THIAMINE HCL 100 MG TABLET PO (08:52)
[2019-10-25] MEDS: ASPIRIN 325 MG TABLET FEED TUBE (08:52)
[2019-10-25] MEDS: PANTOPRAZOLE SODIUM IV 40 MG VIAL IV PUSH (08:52)
[2019-10-25] MEDS: ENOXAPARIN 40 MG/0.4 ML SYRINGE SUB-Q (08:52)
[2019-10-25] MEDS: MULTIVITAMINS THERAPEUTIC TAB (*BKC) 1 TABLET PO (08:52)
[2019-10-25] MEDS: FOLIC ACID 1 MG TABLET PO (08:52)
[2019-10-25] MEDS: INSULIN GLARGINE (*BKC) 100 UNITS/ML 15 UNITS SUB-Q (08:53)
[2019-10-25] MEDS: ALBUMIN HUMAN 25% 25 GM/100 ML 100 ML IVPB ×2 (10:58→20:34)
[2019-10-25 12:15] LABS: Glucose Point of Care 146 (65-105)
[2019-10-25] MEDS: FUROSEMIDE INJ 40 MG/4 ML VIAL IV PUSH ×2 (12:32→22:23)
--- NOTE | 2019-10-25 12:56 | WPDINTPN ---
Progress Note: A&P Assessment and Plan (1) Acute respiratory failure: Qualifiers: Respiratory failure complication: hypoxia Qualified Code(s): J96.01 - Acute respiratory failure with hypoxia Code(s): J96.00 - Acute respiratory failure, unspecified whether with hypoxia or hypercapnia Status: Acute Assessment and Plan: Patient seen in the IMU was found to be in impending respiratory failure with gurgling respirations and chest congestion. Discussed with spouse with Dinorah, who was agreeable for intubation. -patient was successfully intubated in the ICU on 10/15/2019 - 10/17 -extubated after successful weaning trial but after few hours had difficulty clearing secretions and hypoxia. Patient was placed on non-rebreather mass and suction frequently as he was still awake and following commands to try to avoid re-intubation. 10/18 worsening respiratory distress with worsening hypoxia, tachycardic tachypneic, rattling secretions in his upper airway. Reintubated with difficulty with significant swelling of the hypopharynx and around the vocal cords. Requiring assistance from anesthesia -Pulmonary consulted and bronchoscopy was done. Culture sent and negative as of now -chest x-ray and ABGs reviewed, chest x-ray continues to shows bilateral infiltrates -placed patient on ASV mode of ventilation, tolerating well, if patient tires out will place him back on CMV mode of ventilation. Patient has a good air leak when I deflated the ETT balloon -last sputum cultures have been obtained and yeast which is likely a colonizer -patient is on Pulmozyme for thick secretions -patient is overall volume overloaded and continue Lasix with albumin -will obtain CT scan of the neck and soft tissues on 10/26/2019 as patient was a difficult intubation with significant swelling of [place]il[place] hypopharynx and the vocal cords. (2) Acute encephalopathy: Code(s): G93.40 - Encephalopathy, unspecified Status: Acute Assessment and Plan: RESOLVED Patient was in the intermediate unit and was found to be in acute encephalopathy, obtunded, -likely due to hypoxia, possible liver dysfunction, severe sepsis -ammonia levels are normal -improved overall -patient is on Precedex infusion, is awake, alert, follows simple commands in all extremities (3) Gallbladder abscess: Code(s): K81.0 - Acute cholecystitis Status: Acute Assessment and Plan: Surgery service managing Abscess culture growing ESBL E coli, infectious disease following the patient, patient is on Primaxin CT A/P 10/18 IMPRESSION: 1. Moderate volume of ascites with areas of peritoneal thickening and enhancement in left paracolic gutter and in the pelvis, likely an exudate. 2. Rim-enhancing fluid collection at the undersurface of right hepatic lobe, consistent with abscess. 3. Pigtail drains in the gallbladder fossa and anteroinferior to the liver. No residual fluid in these locations. 10/20-3rd CT-guided drain placed. Out more than 200 cc since placement. Small amount of drainage from 1st drain and minimal from 2nd Continue antibiotic therapy at this time. Plan to repeat CT on Saturday10/26/2019 by surgery decide on future of drains referred to general surgery note for details (4) COPD (chronic obstructive pulmonary disease): Code(s): J44.9 - Chronic obstructive pulmonary disease, unspecified Status: Chronic Assessment and Plan: Continue bronchodilators (5) Afib: Qualifiers: Atrial fibrillation type: unspecified Qualified Code(s): I48.91 - Unspecified atrial fibrillation Code(s): I48.91 - Unspecified atrial fibrillation Status: Acute Assessment and Plan: AFib RVR with rate controlled on aspirin 325 mg per tube feed Patient was seen by Cardiology and not felt to be candidate for anticoagulation due to history of falls and alcohol abuse in the past. Since admission patient has had multiple invasive procedures an
--- NOTE | 2019-10-25 16:13 | PM.IMPN ---
Progress Note: A&P Assessment and Plan (1) Gallbladder abscess: Code(s): K81.0 - Acute cholecystitis Status: Acute Assessment and Plan: Has three percutaneous drains in place. off imipenem now. MDRO isolated. Bc reordered yesterday. pt with liver abscess (2) Respiratory failure: Code(s): J96.90 - Respiratory failure, unspecified, unspecified whether with hypoxia or hypercapnia Status: Acute Assessment and Plan: On mechanical ventilation. trying to wean off Possible ARDS. Hypoxemic resp failure. (3) Atrial fibrillation: Code(s): I48.91 - Unspecified atrial fibrillation Status: Acute Assessment and Plan: On metoprolol Not a candidate for AC. (4) CHF (congestive heart failure): Qualifiers: Heart failure type: systolic Heart failure chronicity: chronic Qualified Code(s): I50.22 - Chronic systolic (congestive) heart failure Code(s): I50.9 - Heart failure, unspecified Status: Chronic Assessment and Plan: On Lasix IV BID (5) Chronic alcohol use: Code(s): Z72.89 - Other problems related to lifestyle Status: Chronic Assessment and Plan: On thiamine Subjective Date/time seen: 10/25/19 16:13 Interval history: Discharged from here on 08/06/2019 where the patient had acute cholecystitis and general surgery recommended that the patient was a poor surgical candidate at the time. pT ADMIITED FOR SEPTIC SHOCK, UTi And acute cholecystitis. Seen by surgeon. No fever today.pt is on a breathing trial weaning off vent Exam Narrative: Exam Narrative: Elderly appears chronically ill, on vent, light sedation Resp: Auscultation: clear to auscultation bilaterally Cardio: Palpation: normal PMI Rate: regular rate, tachycardic and other Rhythm: regular rhythm Heart sounds: S1 normal heart sound present and S2 normal heart sound present Peripheral pulses: Peripheral pulses 2+ throughout GI: Inspection: other (percutaneus drain mild TTP over RUQ) Auscultation: normal bowel sounds Other: Drainage tubes Objective Data Vital Signs Vital Signs: Vital Signs - 24 hr 10/24/19 17:13 10/24/19 17:30 10/24/19 18:00 Temperature Pulse Rate 112 H 120 H 119 H Respiratory Rate 13 12 Blood Pressure 109/72 Pulse Oximetry 98 98 10/24/19 19:59 10/24/19 20:00 10/24/19 20:18 Temperature 36.5 C Pulse Rate 110 H 112 H 106 H Respiratory Rate 12 14 14 Blood Pressure 97/75 L Pulse Oximetry 97 10/24/19 20:54 10/24/19 22:00 10/24/19 23:20 Temperature Pulse Rate 109 H 109 H 103 H Respiratory Rate 14 Blood Pressure 92/74 L Pulse Oximetry 97 100 10/24/19 23:36 10/25/19 00:00 10/25/19 00:59 Temperature 36.5 C Pulse Rate 99 92 114 H Respiratory Rate 12 13 Blood Pressure 95/62 L Pulse Oximetry 97 10/25/19 01:10 10/25/19 01:15 10/25/19 02:00 Temperature Pulse Rate 111 H 117 H 102 H Respiratory Rate 12 12 Blood Pressure 90/71 L Pulse Oximetry 100 95 10/25/19 03:43 10/25/19 04:00 10/25/19 04:27 Temperature 36.9 C Pulse Rate 15 L 108 H 106 H Respiratory Rate 12 Blood Pressure 111/85 Pulse Oximetry 93 94 10/25/19 06:00 10/25/19 07:57 10/25/19 08:00 Temperature 36.5 C Pulse Rate 90 92 93 Respiratory Rate 13 12 14 Blood Pressure 97/78 L 101/76 Pulse Oximetry 97 97 10/25/19 08:02 10/25/19 08:04 10/25/19 08:52 Temperature Pulse Rate 92 91 103 H Respiratory Rate 12 Blood Pressure Pulse Oximetry 97 10/25/19 10:00 10/25/19 12:00 10/25/19 14:00 Temperature 36.0 C L Pulse Rate 92 87 98 Respiratory Rate 18 11 L 12 Blood Pressure 94/75 L 107/79 90/74 L Pulse Oximetry 96 98 96 10/25/19 14:32 10/25/19 14:40 10/25/19 14:55 Temperature Pulse Rate 99 96 96 Respiratory Rate 14 13 Blood Pressure Pulse Oximetry 99 Intake/Output Intake/Output: Intake & Output 10/22/19 10/23/19 10/24/19 10/25/19 23:59 23:59
[2019-10-25 17:42] LABS: Glucose Point of Care 151 (65-105)
--- NOTE | 2019-10-25 21:03 | PM.PNPUL ---
Progress Note: A&P Assessment and Plan (1) Acute respiratory failure: Qualifiers: Respiratory failure complication: hypoxia Qualified Code(s): J96.01 - Acute respiratory failure with hypoxia Code(s): J96.00 - Acute respiratory failure, unspecified whether with hypoxia or hypercapnia Status: Acute Assessment and Plan: recurrent acute respiratory failure due to secretions, inability to maintain his airway due to encephalopathy, COPD, sepsis, and generalized illness. He was intubated October 14, exntubated October 17, and reintubated October 18 with improvemeent in aeration, still has infiltrates bilaterally. (2) COPD (chronic obstructive pulmonary disease): Code(s): J44.9 - Chronic obstructive pulmonary disease, unspecified Status: Chronic (3) Smoking: Code(s): F17.200 - Nicotine dependence, unspecified, uncomplicated Status: Acute Subjective Date/time seen: 10/25/19 21:03 Review of Systems Review of Systems: ROS unobtainable: Yes unobtainable due to endotracheal tube Exam Const: General: comfortable Other: sedated, orally intubated Eyes: General: appearance normal, both eyes and all related structures Neck: Neck: supple Resp: Auscultation: crackles Cardio: Rate: tachycardic Rhythm: regular rhythm Urinary Catheter: Urinary Catheter: patent and draining Skin: General skin exam: normal color Neuro: Other: sedated Objective Data Vital Signs Vital Signs: Vital Signs - 24 hr 10/24/19 22:00 10/24/19 23:20 10/24/19 23:36 Temperature 36.5 C Pulse Rate 109 H 103 H 99 Respiratory Rate 14 12 Blood Pressure 92/74 L 95/62 L Pulse Oximetry 97 100 97 10/25/19 00:00 10/25/19 00:59 10/25/19 01:10 Temperature Pulse Rate 92 114 H 111 H Respiratory Rate 13 12 Blood Pressure Pulse Oximetry 10/25/19 01:15 10/25/19 02:00 10/25/19 03:43 Temperature 36.9 C Pulse Rate 117 H 102 H 15 L Respiratory Rate 12 12 Blood Pressure 90/71 L 111/85 Pulse Oximetry 100 95 93 10/25/19 04:00 10/25/19 04:27 10/25/19 06:00 Temperature Pulse Rate 108 H 106 H 90 Respiratory Rate 13 Blood Pressure 97/78 L Pulse Oximetry 94 97 10/25/19 07:57 10/25/19 08:00 10/25/19 08:02 Temperature 36.5 C Pulse Rate 92 93 92 Respiratory Rate 12 14 Blood Pressure 101/76 Pulse Oximetry 97 97 10/25/19 08:04 10/25/19 08:52 10/25/19 10:00 Temperature Pulse Rate 91 103 H 92 Respiratory Rate 12 18 Blood Pressure 94/75 L Pulse Oximetry 96 10/25/19 12:00 10/25/19 14:00 10/25/19 14:32 Temperature 36.0 C L Pulse Rate 87 98 99 Respiratory Rate 11 L 12 14 Blood Pressure 107/79 90/74 L Pulse Oximetry 98 96 10/25/19 14:40 10/25/19 14:55 10/25/19 16:00 Temperature 36.3 C L Pulse Rate 96 96 102 H Respiratory Rate 13 13 Blood Pressure 107/73 Pulse Oximetry 99 99 10/25/19 17:15 10/25/19 18:00 10/25/19 19:52 Temperature Pulse Rate 99 106 H 107 H Respiratory Rate 16 12 Blood Pressure 105/88 Pulse Oximetry 97 100 99 10/25/19 20:04 10/25/19 20:35 Temperature Pulse Rate 112 H 111 H Respiratory Rate 12 Blood Pressure Pulse Oximetry Intake/Output Intake/Output: Intake & Output 10/22/19 10/23/19 10/24/19 10/25/19 23:59 23:59 23:59 23:59 Intake Total 1950 1870 1586 2189 Output Total 2021 2642 2150 2102 [facility]72 [phone] Meds/Results Medications: Active Medications Generic Name Dose Route Start Last Admin Trade Name Freq PRN Reason Stop Dose Admin Acetaminophen 650 mg 10/10/19 11:24 10/10/19 12:18 Tylenol Tablet PO 650 mg Q6H PRN Administration Mild Pain (1-3) or Fever Aspirin 325 mg 10/17/19 08:00 10/25/19 08:52 Aspirin FEED TUBE 325 mg DAILY@0800 MONET Administration Dextrose 12.5 gm 10/22/19 07:39 Dextrose 50% Syringe IV PUSH PRN PRN Hypoglycemia Protocol Dornase Fernando 2.5 mg 10/14/19 20:00 10/25/19 19:51 Pulmozyme INHA
[2019-10-26] VITALS (33 sets, daily range): BP systolic 91–115; BP diastolic 63–85; PULSE 93–121; RESP 10–26; TEMP 36.2–37.2; O2SAT 95–100
[2019-10-26 00:10] LABS: Glucose Point of Care 135 (65-105)
[2019-10-26] MEDS: IPRATROPIUM BR 0.02% INH SOLN 0.5 MG/2.5 ML VIAL INHALATION ×4 (01:31→20:30)
[2019-10-26 03:46] LABS: Alveolar/Arterial O2 Gradient 95.1 mmHg; Carboxyhemoglobin 0.3 % THb (0-2.0); Fractional Inspired Oxygen 30 %; Methemoglobin ABG 0.5 %THb (0-1.5); Oxygen Content ABG 12.6 %vol (16.0-22.0); Oxygen Saturation ABG 96.5 % (95.0-100.0); Oxyhemoglobin 93.5 % THb (90.0-100.0); PO2 ABG 75.3 mmHg (80.0-100.0); PO2 FiO2 Ratio Arterial Blood 2.51 %; Reduced Hemoglobin 5.7 %THb (0-5.0); Total Hemoglobin 9.5 g/dL (12.0-18.0)
[2019-10-26 03:49] LABS: Device VENTILATOR; Modified Allen's Test Unable to perform; Site Drawn LEFT RADIAL; pH ABG 7.541 (7.350-7.450)
[2019-10-26 03:50] LABS: Arterial Blood Gas PEEP 5 cmH2O; Arterial Blood Gas Vent Mode ASV
[2019-10-26 04:24] LABS: Hematocrit 25.9 % (42.0-52.0); Hemoglobin 8.3 g/dL (14.0-18.0); Mean Corpuscular Hemoglobin 31.2 pg (26-34); Mean Corpuscular Volume 97.4 fl (80-100); Mean Platelet Volume 10.3 fl (7.4-10.4); Platelet Count Result 164 k/mm3 (150-375); Red Blood Count 2.66 M/mm3 (4.6-6.20); Red Cell Distribution Width 16.9 % (11.5-14.5); White Blood Count 8.6 K/mm3 (4.5-10.0)
[2019-10-26 04:37] LABS: Alanine Aminotransferase 12 U/L (4-50); Albumin Level 3.2 g/dL (3.5-5.1); Alkaline Phosphatase 96 U/L (38-126); Aspartate Amino Transferase 24 U/L (17-59); Bilirubin,Total 0.6 mg/dL (0.2-1.3); Blood Urea Nitrogen 20 mg/dL (9-20); Calcium 8.9 mg/dL (8.4-10.2); Carbon Dioxide 37 mmol/L (22-30); Chloride 93 mmol/L (98-107); Estimated CRCL calculation 120 ml/min; Estimated Glomerular Filt Rate > 60; Glucose 145 mg/dL (75-110); Phosphorus 3.5 mg/dL (2.5-4.5); Potassium 3.5 mmol/L (3.4-5.0); Sodium 137 mmol/L (137-145)
[2019-10-26] MEDS: CENTRAL LINE FLUSH 10 ML IV PUSH ×3 (06:42→21:52)
[2019-10-26] MEDS: DORNASE ALFA INH SOLN 1 MG/ML 2.5 ML AMP 2.5 MG INHALATION ×2 (08:09→20:31)
--- NOTE | 2019-10-26 08:45 | WPDINFPN2 ---
Progress Note: A&P Assessment and Plan (1) Gallbladder abscess: Code(s): K81.0 - Acute cholecystitis Status: Acute Assessment and Plan: 1. Acute cholecystitis with abscess, MDRO isolated. [address] His infection is resolved by microbiology testing/exam/labs 2. Dysphagia. 3. Respiratory distress with lung infiltrates, possible ARDS due to #1. Remains on vent, difficult re-intbation 4. Yeast in sputum, colonizer and not pathogenic in this patient REC off Imipenem 3 days ([address] of neck prior to attempt at extubation. No re-institution of antimicrobials at present. Subjective Date/time seen: 10/26/19 08:45 Interval history: eyes open and moves head, intubated Exam Narrative: Exam Narrative: afebrile Const: General: no acute distress Neck: Neck: supple Thyroid: thyroid normal Lymphatic: lymphadenopathy not noted Other: no: stridor asymmetry palpable mass abnormal contour Resp: Effort & Inspection: normal respiratory effort Auscultation: clear to auscultation bilaterally Cardio: Rate: tachycardic Rhythm: regular rhythm Heart sounds: no murmurs GI: Inspection: distended GI Palp: Yes Soft to palpation, No Tenderness to palpation present (GI) and No Guarding due to palpation present (GI) Auscultation: abnormal bowel sounds Urinary Catheter: Urinary Catheter: patent and draining and urine clear Skin: General skin exam: no rashes or lesions noted Objective Data Vital Signs Vital Signs: Vital Signs - 24 hr 10/25/19 08:52 10/25/19 10:00 10/25/19 12:00 Temperature 36.0 C L Pulse Rate 103 H 92 87 Respiratory Rate 18 11 L Blood Pressure 94/75 L 107/79 Pulse Oximetry 96 98 10/25/19 14:00 10/25/19 14:32 10/25/19 14:40 Temperature Pulse Rate 98 99 96 Respiratory Rate 12 14 Blood Pressure 90/74 L Pulse Oximetry 96 99 10/25/19 14:55 10/25/19 16:00 10/25/19 17:15 Temperature 36.3 C L Pulse Rate 96 102 H 99 Respiratory Rate 13 13 Blood Pressure 107/73 Pulse Oximetry 99 97 10/25/19 18:00 10/25/19 19:52 10/25/19 20:00 Temperature 36.4 C Pulse Rate 106 H 107 H 114 H Respiratory Rate 16 12 18 Blood Pressure 105/88 99/68 L Pulse Oximetry 100 99 98 10/25/19 20:04 10/25/19 20:35 10/25/19 22:00 Temperature Pulse Rate 112 H 111 H 108 H Respiratory Rate 12 10 L Blood Pressure 107/88 Pulse Oximetry 100 10/25/19 23:00 10/26/19 00:00 10/26/19 01:32 Temperature 36.4 C Pulse Rate 102 H 116 H 104 H Respiratory Rate 14 10 L Blood Pressure 114/85 Pulse Oximetry 100 100 99 10/26/19 02:00 10/26/19 04:00 10/26/19 04:27 Temperature 37.2 C Pulse Rate 110 H 112 H 107 H Respiratory Rate 15 16 Blood Pressure 115/78 105/74 Pulse Oximetry 100 99 98 10/26/19 06:00 10/26/19 08:00 10/26/19 08:10 Temperature 36.2 C L Pulse Rate 96 116 H 117 H Respiratory Rate 10 L 13 16 Blood Pressure 109/82 91/63 L Pulse Oximetry 96 99 10/26/19 08:11 10/26/19 08:20 Temperature Pulse Rate 109 H 105 H Respiratory Rate 18 Blood Pressure Pulse Oximetry 95 Intake/Output Intake/Output: Intake & Output 10/23/19 10/24/19 10/25/19 10/26/19 23:59 23:59 23:59 23:59 Intake Total 1870 1586 2289 700 Output Total 2640 2154 2105 1250 [facility] -539 -994 184 -550 Meds/Results Medications: Active Medications Generic Name Dose Route Start Last Admin Trade Name Freq PRN Reason Stop Dose Admin Acetaminophen 650 mg 10/10/19 11:24 10/10/19 12:18 Tylenol Tablet PO 650 mg Q6H PRN Administration Mild Pain (1-3) or Fever Aspirin 325 mg 10/17/19 08:00 10/25/19 08:52 Aspirin FEED TUBE 325 mg DAILY@0800 [facility] Administration Dextrose 12.5 gm 10/22/19 07:39 Dextrose 50% Syringe IV PUSH PRN PRN Hypoglycemia Protocol Dornase Fernando 2.5 mg 10/14/19 20:00 10/26/19 08:09 Pulmozyme INHALATION 2.5 mg Q12HRT MONET Administration Enoxaparin Sodium 40 mg 10/09/19 09:00 10/25/19 08
[2019-10-26] MEDS: ASPIRIN 325 MG TABLET FEED TUBE (09:11)
[2019-10-26] MEDS: FOLIC ACID 1 MG TABLET PO (09:11)
[2019-10-26] MEDS: PANTOPRAZOLE SODIUM IV 40 MG VIAL IV PUSH (09:11)
[2019-10-26] MEDS: ENOXAPARIN 40 MG/0.4 ML SYRINGE SUB-Q (09:11)
[2019-10-26] MEDS: TIMOLOL MALEATE 0.5% OP SOLN 5 ML BTL 1 DROP EACH EYE ×2 (09:11→20:07)
[2019-10-26] MEDS: MULTIVITAMINS THERAPEUTIC TAB (*BKC) 1 TABLET PO (09:12)
[2019-10-26] MEDS: THIAMINE HCL 100 MG TABLET PO (09:12)
[2019-10-26] MEDS: ALBUMIN HUMAN 25% 25 GM/100 ML 100 ML IVPB ×2 (09:12→20:08)
[2019-10-26] MEDS: METOPROLOL TARTRATE 50 MG TAB PO ×2 (09:12→20:07)
[2019-10-26] MEDS: polyethylene glycoL 3350 17 GM POWD.PACK PO (09:18)
[2019-10-26] MEDS: INSULIN GLARGINE (*BKC) 100 UNITS/ML 15 UNITS SUB-Q (09:18)
[2019-10-26] MEDS: FUROSEMIDE INJ 40 MG/4 ML VIAL IV PUSH ×2 (10:50→21:52)
--- NOTE | 2019-10-26 10:58 | PCDIET ---
ICU Rounding Note: Patient has been tolerating Vital 1.5 at 50mL/hr. Tube feedings currently held for breathing trial. Last recorded weight is 102.6kg which is decreased from last review. -I/O. Bowel Motility: Last documented BM on 10/22/19. MD aware and plans to monitor. Labs Reviewed: Hgb (8.3), Hct (25.9), Glu (145), Alb (3.2) Meds Noted: MVI, Protonix, KCl, Albumin, Precedex, Lasix, Novolog, Lantus, Folic Acid, Atrovent, Xopenex, Miralax, Vitamin B1 Additional Notes: RN reports skin tear to right buttock and deep tissue injury. Wound nurse following. Recommend resuming tube feedings if unable to extubate. Following daily in ICU rounds. Assessing/reassessing every Saturday/Saturday.
[2019-10-26 12:18] LABS: Glucose Point of Care 132 (65-105)
--- NOTE | 2019-10-26 12:21 | WPDINTPN ---
Progress Note: A&P Assessment and Plan (1) Acute respiratory failure: Qualifiers: Respiratory failure complication: hypoxia Qualified Code(s): J96.01 - Acute respiratory failure with hypoxia Code(s): J96.00 - Acute respiratory failure, unspecified whether with hypoxia or hypercapnia Status: Acute Assessment and Plan: Patient seen in the IMU was found to be in impending respiratory failure with gurgling respirations and chest congestion. Discussed with spouse with Dinorah, who was agreeable for intubation. -patient was successfully intubated in the ICU on 10/15/2019 - 10/17 -extubated after successful weaning trial but after few hours had difficulty clearing secretions and hypoxia. Patient was placed on non-rebreather mass and suction frequently as he was still awake and following commands to try to avoid re-intubation. 10/18 worsening respiratory distress with worsening hypoxia, tachycardic tachypneic, rattling secretions in his upper airway. Reintubated with difficulty with significant swelling of the hypopharynx and around the vocal cords. Requiring assistance from anesthesia -Pulmonary consulted and bronchoscopy was done. Culture sent and negative as of now -chest x-ray and ABGs reviewed, chest x-ray continues to shows bilateral infiltrates -placed patient on ASV mode of ventilation, tolerating well, if patient tires out will place him back on CMV mode of ventilation. Patient has a good air leak when I deflated the ETT balloon -last sputum cultures have been obtained and yeast which is likely a colonizer -patient is on Pulmozyme for thick secretions -patient is overall volume overloaded and continue Lasix with albumin - CT scan of the neck on 10/26/2019 and soft tissue showed mild emphysema, the pharynx and larynx are remarkable, small pleural effusion, right thyroid nodule, dental disease (2) Acute encephalopathy: Code(s): G93.40 - Encephalopathy, unspecified Status: Acute Assessment and Plan: RESOLVED Patient was in the intermediate unit and was found to be in acute encephalopathy, obtunded, -likely due to hypoxia, possible liver dysfunction, severe sepsis -ammonia levels are normal -improved overall -patient is on Precedex infusion, is awake, alert, follows simple commands in all extremities (3) Gallbladder abscess: Code(s): K81.0 - Acute cholecystitis Status: Acute Assessment and Plan: Surgery service managing Abscess culture growing ESBL E coli, infectious disease following the patient, patient is on Primaxin CT A/P 10/18 IMPRESSION: 1. Moderate volume of ascites with areas of peritoneal thickening and enhancement in left paracolic gutter and in the pelvis, likely an exudate. 2. Rim-enhancing fluid collection at the undersurface of right hepatic lobe, consistent with abscess. 3. Pigtail drains in the gallbladder fossa and anteroinferior to the liver. No residual fluid in these locations. 10/20-3rd CT-guided drain placed. Out more than 200 cc since placement. Small amount of drainage from 1st drain and minimal from 2nd Continue antibiotic therapy at this time. CT scan of the abdomen and pelvis on 10/26/2019 showed the abscess on the undersurface of the right hepatic lobe with improvement, another fluid collection left paracolic gutter and pelvis with interval improvement small volume free ascites, moderate-size pleural effusion worse on the right (4) COPD (chronic obstructive pulmonary disease): Code(s): J44.9 - Chronic obstructive pulmonary disease, unspecified Status: Chronic Assessment and Plan: Continue bronchodilators (5) Afib: Qualifiers: Atrial fibrillation type: unspecified Qualified Code(s): I48.91 - Unspecified atrial fibrillation Code(s): I48.91 - Unspecified atrial fibrillation Status: Acute Assessment and Plan: AFib RVR with rate controlled on aspirin 325 mg per tube feed Patient was seen by Ca
[2019-10-26] MEDS: DEXAMETHASONE SOD PHOS INJ 4 MG/ML VIAL IV PUSH ×3 (14:12→23:03)
--- NOTE | 2019-10-26 14:42 | PM.PNGS ---
Progress Note: A&P Assessment and Plan (1) Gallbladder abscess: Code(s): K81.0 - Acute cholecystitis Status: Acute Assessment and Plan: cont drain 1, abscess resolved, functions as cholecystostomy at this point, will need cholangiogram thru tube in 4 wks, abx per ID (2) Hepatic abscess: Code(s): K75.0 - Abscess of liver Status: Acute Assessment and Plan: will remove drains 2 and 3 as fluid collections resolved, abx per ID (3) Respiratory failure: Code(s): J96.90 - Respiratory failure, unspecified, unspecified whether with hypoxia or hypercapnia Status: Acute Assessment and Plan: wean as zabrina Subjective Subjective Date/Time Seen: 10/26/19 14:42 Pt cont to be intubated, follows commands, no abd pain, zabrina TFs at goal Review of Systems Review of Systems: ROS unobtainable: Yes unobtainable due to endotracheal tube Exam Const: General: no acute distress Resp: Auscultation: diminished lung sounds Cardio: Rate: regular rate Rhythm: regular rhythm GI: Other: S, sl dist, NT, drains examined C/D/I Objective Data Vital Signs Vital Signs: Vital Signs - 24 hr 10/25/19 14:55 10/25/19 16:00 10/25/19 17:15 Temperature 36.3 C L Pulse Rate 96 102 H 99 Respiratory Rate 13 13 Blood Pressure 107/73 Pulse Oximetry 99 97 10/25/19 18:00 10/25/19 19:52 10/25/19 20:00 Temperature 36.4 C Pulse Rate 106 H 107 H 114 H Respiratory Rate 16 12 18 Blood Pressure 105/88 99/68 L Pulse Oximetry 100 99 98 10/25/19 20:04 10/25/19 20:35 10/25/19 22:00 Temperature Pulse Rate 112 H 111 H 108 H Respiratory Rate 12 10 L Blood Pressure 107/88 Pulse Oximetry 100 10/25/19 23:00 10/26/19 00:00 10/26/19 01:32 Temperature 36.4 C Pulse Rate 102 H 116 H 104 H Respiratory Rate 14 10 L Blood Pressure 114/85 Pulse Oximetry 100 100 99 10/26/19 02:00 10/26/19 04:00 10/26/19 04:27 Temperature 37.2 C Pulse Rate 110 H 112 H 107 H Respiratory Rate 15 16 Blood Pressure 115/78 105/74 Pulse Oximetry 100 99 98 10/26/19 06:00 10/26/19 08:00 10/26/19 08:10 Temperature 36.2 C L Pulse Rate 96 113 H 117 H Respiratory Rate 10 L 13 16 Blood Pressure 109/82 91/63 L Pulse Oximetry 96 99 10/26/19 08:11 10/26/19 08:20 10/26/19 09:03 Temperature Pulse Rate 109 H 105 H 111 H Respiratory Rate 18 Blood Pressure Pulse Oximetry 95 100 10/26/19 09:12 10/26/19 10:00 10/26/19 11:09 Temperature Pulse Rate 105 H 101 H 102 H Respiratory Rate Blood Pressure Pulse Oximetry 100 10/26/19 11:57 10/26/19 12:00 10/26/19 13:12 Temperature 36.7 C Pulse Rate 95 93 100 Respiratory Rate 10 L Blood Pressure 98/76 L Pulse Oximetry 99 99 10/26/19 13:18 10/26/19 13:46 10/26/19 14:00 Temperature Pulse Rate 98 111 H 101 H Respiratory Rate 17 23 H Blood Pressure 107/75 Pulse Oximetry 98 98 Intake/Output Intake/Output: Intake & Output 10/23/19 10/24/19 10/25/19 10/26/19 23:59 23:59 23:59 23:59 Intake Total 1870 1586 2289 1000 Output Total 2640 2154 2105 1450 Balance -770 -568 184 -450 Meds/Results Medications: Active Medications Generic Name Dose Route Start Last Admin Trade Name Freq PRN Reason Stop Dose Admin Acetaminophen 650 mg 10/10/19 11:24 10/10/19 12:18 Tylenol Tablet PO 650 mg Q6H PRN Administration Mild Pain (1-3) or Fever Aspirin 325 mg 10/17/19 08:00 10/26/19 09:11 Aspirin FEED TUBE 325 mg DAILY@0800 [facility] Administration Dexamethasone Sodium Phosphate 4 mg 10/26/19 14:03 10/26/19 14:12 Decadron 4 Mg/Ml Inj IV PUSH 10/27/19 06:01 4 mg Q6HR MONET Administration Dextrose 12.5 gm 10/22/19 07:39 Dextrose 50% Syringe IV PUSH PRN PRN Hypoglycemia Protocol Dornase Fernando 2.5 mg 10/14/19 20:00 10/26/19 08:09 Pulmozyme INHALATION 2.5 mg Q12HRT MONET Administration Enoxaparin Sodium 40 mg 10/09/19 09:00 10/26/19 09:11 Love
--- NOTE | 2019-10-26 16:17 | PC.NURSE ---
Two of three abdominal drains removed by Lizzeth Noel BUNDLE CLERK at bedside. Patient tolerated well.
--- NOTE | 2019-10-26 16:49 | PM.IMPN ---
Progress Note: A&P Assessment and Plan (1) Gallbladder abscess: Code(s): K81.0 - Acute cholecystitis Status: Acute Assessment and Plan: Has three percutaneous drains in place. off imipenem now. MDRO isolated. Bc reordered yesterday. pt with liver abscess 10/26/19 16:49 A drain was placed per Interventional Radiology. And surgery has been consulted. ecoli seen in his cultures. Patient is on impenem Add nitrofurantoin Patient is 69-year-old male with long history of alcohol abuse he presented emergency department with abdominal pain his found to have abscess along his gallbladder patient was seen by general surgery patient was not a candidate for surgical intervention at the present time and interventional radiologist placed a drain which is draining bile and what appears to be pleurant discharge, the abscess culture is growing E coli sensitive to imipenem similarly urine culture is growing E coli with ESBL sensitive to imipenem, is seen by Dr. clarke continue to imipenem, patient also has a history of atrial fibrillation now in RVR was started on Amio drip seen by nurse care manager and switch him over to oral diltiazem rate is trending down, patient complains of abdominal pain denies any fever or chills. on 10/[address]-guided drainage of the gallbladder abscess, again patient had a ultrasound-guided drainage of abdominal wall abscess, patient is seen by Dr. clarke recommended to continue current management, on 10/13 patient was more congested and slightly short of breath chest x-ray showed pleural effusion a low-dose of IV Lasix 20 mg was given to help diurese and stop IV fluid, 10/14 went to see the patient he appeared more distress and impending respiratory failure, talked to the global marketing specialist who came and examined the patient patient was transfer to ICU and was intubated. Patient with hepatic abscess seen by surgery team being fed with a G-tube and tolerating, there is abscess drainage appears purulent, Patient being diuresed, Patient was seen by Dr. Clarke on 10/15 recommended to continue imipenum # 7 another 4 more days, 10/17 patient seen by global marketing specialist and was successfully extubated, patient was still quite somnolent but feels better and was doing well, on 10/18 patient was struggling and had difficulty with breathing and hypoxic, patient was intubated again it was not a difficult intubation, diarrhea patient was seen by Dr. Delacruz and had a bronchoscopy samples were collected for culture, currently patient is on vent and stable. patient remains intubated, seen by surgery abscess has resolved will remove the drain soon, seen by Dr. clarke finished course of antibiotic no more antibiotics needed, patient will need CT scan of the neck prior to extubation, (2) Respiratory failure: Code(s): J96.90 - Respiratory failure, unspecified, unspecified whether with hypoxia or hypercapnia Status: Acute Assessment and Plan: On mechanical ventilation. trying to wean off Possible ARDS. Hypoxemic resp failure. (3) Atrial fibrillation: Code(s): I48.91 - Unspecified atrial fibrillation Status: Acute Assessment and Plan: On metoprolol Not a candidate for AC. (4) CHF (congestive heart failure): Qualifiers: Heart failure type: systolic Heart failure chronicity: chronic Qualified Code(s): I50.22 - Chronic systolic (congestive) heart failure Code(s): I50.9 - Heart failure, unspecified Status: Chronic Assessment and Plan: On Lasix IV BID (5) Chronic alcohol use: Code(s): Z72.89 - Other problems related to lifestyle Status: Chronic Assessment and Plan: On thiamine Subjective Date/time seen: 10/26/19 16:49 A drain was placed per Interventional Radiology. And surgery has been consulted. ecoli seen in his cultures. Patient is on impenem Add nitrofurantoin Patient is 69-year-old male with long history of alcohol abuse he presented emergenc
[2019-10-26 18:03] LABS: Glucose Point of Care 165 (65-105)
--- NOTE | 2019-10-26 20:03 | PM.PNPUL ---
Progress Note: A&P Assessment and Plan (1) Acute respiratory failure: Qualifiers: Respiratory failure complication: hypoxia Qualified Code(s): J96.01 - Acute respiratory failure with hypoxia Code(s): J96.00 - Acute respiratory failure, unspecified whether with hypoxia or hypercapnia Status: Acute Assessment and Plan: recurrent acute respiratory failure due to secretions, inability to maintain his airway due to encephalopathy, COPD, sepsis, and generalized illness. He was intubated October 14, exntubated October 17, and reintubated October 18 with improvemeent in aeration, still has infiltrates bilaterally. (2) COPD (chronic obstructive pulmonary disease): Code(s): J44.9 - Chronic obstructive pulmonary disease, unspecified Status: Chronic (3) Smoking: Code(s): F17.200 - Nicotine dependence, unspecified, uncomplicated Status: Acute Subjective Date/time seen: 10/26/19 20:03 Review of Systems Review of Systems: ROS unobtainable: Yes unobtainable due to endotracheal tube Exam Const: General: comfortable Other: sedated, orally intubated Eyes: General: appearance normal, both eyes and all related structures Neck: Neck: supple Resp: Auscultation: crackles Cardio: Rate: tachycardic Rhythm: regular rhythm Urinary Catheter: Urinary Catheter: patent and draining Skin: General skin exam: normal color Neuro: Other: sedated Objective Data Vital Signs Vital Signs: Vital Signs - 24 hr 10/25/19 20:04 10/25/19 20:35 10/25/19 22:00 Temperature Pulse Rate 112 H 111 H 108 H Respiratory Rate 12 10 L Blood Pressure 107/88 Pulse Oximetry 100 10/25/19 23:00 10/26/19 00:00 10/26/19 01:32 Temperature 36.4 C Pulse Rate 102 H 116 H 104 H Respiratory Rate 14 10 L Blood Pressure 114/85 Pulse Oximetry 100 100 99 10/26/19 02:00 10/26/19 04:00 10/26/19 04:27 Temperature 37.2 C Pulse Rate 110 H 112 H 107 H Respiratory Rate 15 16 Blood Pressure 115/78 105/74 Pulse Oximetry 100 99 98 10/26/19 06:00 10/26/19 08:00 10/26/19 08:10 Temperature 36.2 C L Pulse Rate 96 113 H 117 H Respiratory Rate 10 L 13 16 Blood Pressure 109/82 91/63 L Pulse Oximetry 96 99 10/26/19 08:11 10/26/19 08:20 10/26/19 09:03 Temperature Pulse Rate 109 H 105 H 111 H Respiratory Rate 18 Blood Pressure Pulse Oximetry 95 100 10/26/19 09:12 10/26/19 10:00 10/26/19 11:09 Temperature Pulse Rate 105 H 101 H 102 H Respiratory Rate 18 Blood Pressure 95/78 L Pulse Oximetry 97 100 10/26/19 11:57 10/26/19 12:00 10/26/19 13:12 Temperature 36.7 C Pulse Rate 95 93 100 Respiratory Rate 10 L Blood Pressure 98/76 L Pulse Oximetry 99 99 10/26/19 13:18 10/26/19 13:46 10/26/19 14:00 Temperature Pulse Rate 98 111 H 101 H Respiratory Rate 17 23 H Blood Pressure 107/75 Pulse Oximetry 98 98 10/26/19 16:00 10/26/19 16:53 10/26/19 18:00 Temperature 36.8 C Pulse Rate 110 H 111 H 111 H Respiratory Rate 19 21 H Blood Pressure 104/70 102/70 Pulse Oximetry 96 100 98 10/26/19 19:43 Temperature Pulse Rate 118 H Respiratory Rate Blood Pressure Pulse Oximetry Intake/Output Intake/Output: Intake & Output 10/23/19 10/24/19 10/25/19 10/26/19 23:59 23:59 23:59 23:59 Intake Total 1870 1586 2289 1100 Output Total 2640 2154 2105 2200 [facility] -770 -568 184 -1100 Meds/Results Medications: Active Medications Generic Name Dose Route Start Last Admin Trade Name Freq PRN Reason Stop Dose Admin Acetaminophen 650 mg 10/10/19 11:24 10/10/19 12:18 Tylenol Tablet PO 650 mg Q6H PRN Administration Mild Pain (1-3) or Fever Aspirin 325 mg 10/17/19 08:00 10/26/19 09:11 Aspirin FEED TUBE 325 mg DAILY@0800 [facility] Administration Dexamethasone Sodium Phosphate 4 mg 10/26/19 14:03 10/26/19 18:00 Decadron 4 Mg/Ml Inj IV PUSH 10/27/19 06:01 4 mg Q6HR MONET Administration Dextrose 12.5 gm 0
[2019-10-26] MEDS: INSULIN ASPART (*BKC) 100 UNITS/ML SUB-Q (23:02)
[2019-10-26 23:03] LABS: Glucose Point of Care 211 (65-105)
[2019-10-27] VITALS (33 sets, daily range): BP systolic 102–129; BP diastolic 52–99; PULSE 62–126; RESP 10–26; TEMP 36.3–36.9; O2SAT 86–100
[2019-10-27] MEDS: IPRATROPIUM BR 0.02% INH SOLN 0.5 MG/2.5 ML VIAL INHALATION ×4 (02:08→19:56)
[2019-10-27 03:47] LABS: Alveolar/Arterial O2 Gradient 112.9 mmHg; Base Excess ABG 3.7 mEq/l (+/-2.0); Carboxyhemoglobin 0.3 % THb (0-2.0); Fractional Inspired Oxygen 30 %; HCO3 ABG 25.5 mEq/l (22.0-26.0); Methemoglobin ABG 0.4 %THb (0-1.5); Oxygen Content ABG 12.3 %vol (16.0-22.0); Oxygen Saturation ABG 95.9 % (95.0-100.0); Oxyhemoglobin 92.3 % THb (90.0-100.0); PCO2 ABG 28.4 mmHg (35.0-45.0); PO2 ABG 67.6 mmHg (80.0-100.0); PO2 FiO2 Ratio Arterial Blood 2.25 %; Total Hemoglobin 9.4 g/dL (12.0-18.0)
[2019-10-27 03:48] LABS: Device VENTILATOR; Modified Allen's Test Pass; Site Drawn RIGHT RADIAL; pH ABG 7.571 (7.350-7.450)
[2019-10-27 03:49] LABS: Arterial Blood Gas PEEP 5 cmH2O; Arterial Blood Gas Vent Mode ASV
[2019-10-27] MEDS: DEXAMETHASONE SOD PHOS INJ 4 MG/ML VIAL IV PUSH (05:08)
[2019-10-27] MEDS: CENTRAL LINE FLUSH 10 ML IV PUSH ×3 (05:08→23:34)
[2019-10-27 05:24] LABS: Hematocrit 25.9 % (42.0-52.0); Hemoglobin 8.3 g/dL (14.0-18.0); Mean Corpuscular Hemoglobin 30.7 pg (26-34); Mean Corpuscular Volume 95.9 fl (80-100); Mean Platelet Volume 11.1 fl (7.4-10.4); Platelet Count Result 160 k/mm3 (150-375); Red Cell Distribution Width 16.7 % (11.5-14.5); White Blood Count 5.8 K/mm3 (4.5-10.0)
[2019-10-27 05:35] LABS: Alanine Aminotransferase 13 U/L (4-50); Albumin Level 3.7 g/dL (3.5-5.1); Alkaline Phosphatase 98 U/L (38-126); Aspartate Amino Transferase 20 U/L (17-59); Bilirubin,Total 0.8 mg/dL (0.2-1.3); Blood Urea Nitrogen 19 mg/dL (9-20); Calcium 9.4 mg/dL (8.4-10.2); Carbon Dioxide 35 mmol/L (22-30); Chloride 92 mmol/L (98-107); Estimated CRCL calculation 120 ml/min; Estimated Glomerular Filt Rate > 60; Glucose 200 mg/dL (75-110); Magnesium 2.2 mg/dL (1.6-2.3); Phosphorus 3.5 mg/dL (2.5-4.5); Potassium 3.4 mmol/L (3.4-5.0); Sodium 136 mmol/L (137-145)
[2019-10-27] MEDS: DORNASE ALFA INH SOLN 1 MG/ML 2.5 ML AMP 2.5 MG INHALATION ×2 (08:08→19:56)
[2019-10-27] MEDS: POTASSIUM CHLORIDE 20 MEQ PACKET (FOR LIQUID) 40 MEQ FEED TUBE (08:50)
[2019-10-27] MEDS: ENOXAPARIN 40 MG/0.4 ML SYRINGE SUB-Q (08:52)
[2019-10-27] MEDS: ASPIRIN 325 MG TABLET FEED TUBE (08:52)
[2019-10-27] MEDS: FOLIC ACID 1 MG TABLET PO (08:52)
[2019-10-27] MEDS: MULTIVITAMINS THERAPEUTIC TAB (*BKC) 1 TABLET PO (08:53)
[2019-10-27] MEDS: PANTOPRAZOLE SODIUM IV 40 MG VIAL IV PUSH (08:53)
[2019-10-27] MEDS: METOPROLOL TARTRATE 50 MG TAB PO ×2 (08:53→20:02)
[2019-10-27] MEDS: THIAMINE HCL 100 MG TABLET PO (08:54)
[2019-10-27] MEDS: INSULIN GLARGINE (*BKC) 100 UNITS/ML 15 UNITS SUB-Q (08:54)
[2019-10-27] MEDS: TIMOLOL MALEATE 0.5% OP SOLN 5 ML BTL 1 DROP EACH EYE ×2 (08:54→20:03)
--- NOTE | 2019-10-27 08:54 | PM.IMPN ---
Progress Note: A&P Assessment and Plan (1) Gallbladder abscess: Code(s): K81.0 - Acute cholecystitis Status: Acute Assessment and Plan: Has three percutaneous drains in place. off imipenem now. MDRO isolated. Bc reordered yesterday. pt with liver abscess 10/27/19 08:54 this is to certify due to patient critical condition currently on vent patient been hospitalized for more than 20 days A drain was placed per Interventional Radiology. And surgery has been consulted. ecoli seen in his cultures. Patient is on impenem Add nitrofurantoin Patient is 69-year-old male with long history of alcohol abuse he presented emergency department with abdominal pain his found to have abscess along his gallbladder patient was seen by general surgery patient was not a candidate for surgical intervention at the present time and interventional radiologist placed a drain which is draining bile and what appears to be pleurant discharge, the abscess culture is growing E coli sensitive to imipenem similarly urine culture is growing E coli with ESBL sensitive to imipenem, is seen by Dr. clarke continue to imipenem, patient also has a history of atrial fibrillation now in RVR was started on Amio drip seen by instructor of spanish and switch him over to oral diltiazem rate is trending down, patient complains of abdominal pain denies any fever or chills. on 10/[address]-guided drainage of the gallbladder abscess, again patient had a ultrasound-guided drainage of abdominal wall abscess, patient is seen by Dr. clarke recommended to continue current management, on 10/13 patient was more congested and slightly short of breath chest x-ray showed pleural effusion a low-dose of IV Lasix 20 mg was given to help diurese and stop IV fluid, 10/14 went to see the patient he appeared more distress and impending respiratory failure, talked to the school psychologist assistant who came and examined the patient patient was transfer to ICU and was intubated. Patient with hepatic abscess seen by surgery team being fed with a G-tube and tolerating, there is abscess drainage appears purulent, Patient being diuresed, Patient was seen by Dr. Clarke on 10/15 recommended to continue imipenum # 7 another 4 more days, 10/17 patient seen by school psychologist assistant and was successfully extubated, patient was still quite somnolent but feels better and was doing well, on 10/18 patient was struggling and had difficulty with breathing and hypoxic, patient was intubated again it was not a difficult intubation, diarrhea patient was seen by Dr. Delacruz and had a bronchoscopy samples were collected for culture, currently patient is on vent and stable. patient remains intubated, seen by surgery abscess has resolved will remove the drain soon, seen by Dr. clarke patient has finished course of antibiotic no more antibiotics needed, patient will need CT scan of the neck prior to extubation, CT scan of the neck showed 1. Mild emphysema and right thyroid nodule. Consider thyroid ultrasound after resolution of acute disease for risk stratification. patient is on vent, off sedation in an attempt to wean the patient off ventilator today, (2) Respiratory failure: Code(s): J96.90 - Respiratory failure, unspecified, unspecified whether with hypoxia or hypercapnia Status: Acute Assessment and Plan: On mechanical ventilation. trying to wean off Possible ARDS. Hypoxemic resp failure. (3) Atrial fibrillation: Code(s): I48.91 - Unspecified atrial fibrillation Status: Acute Assessment and Plan: On metoprolol Not a candidate for AC. (4) CHF (congestive heart failure): Qualifiers: Heart failure type: systolic Heart failure chronicity: chronic Qualified Code(s): I50.22 - Chronic systolic (congestive) heart failure Code(s): I50.9 - Heart failure, unspecified Status: Chronic Assessment and Plan: On Lasix IV BID (5) Chronic alcohol use: Code(s): Z72.89 - Othe
[2019-10-27] MEDS: polyethylene glycoL 3350 17 GM POWD.PACK PO (09:04)
--- NOTE | 2019-10-27 09:53 | PM.PNCARD ---
Progress Note: A&P Assessment and Plan (1) Afib: Qualifiers: Atrial fibrillation type: unspecified Qualified Code(s): I48.91 - Unspecified atrial fibrillation Code(s): I48.91 - Unspecified atrial fibrillation Status: Acute Assessment and Plan: Of unknown duration when first seen in July of this year. At that time he was difficult to control. Was on a significant dose of diltiazem along with carvedilol. Admitted with abdominal pain, acute cholecystitis and hepatic abcesses and elevated heart rates. Due to his mild LV dysfunction (EF 45-50% 07/27/2019) beta edmund is being used. Heart rates now controlled. continue p.o. metoprolol. Replace potassium Not a candidate for anticoagulation due to his alcohol abuse and reported falling. Continue aspirin 325 mg. Subjective Date/time seen: 10/27/19 09:53 Interval history: 69-year-old man with history of chronic atrial fibrillation being managed with rate control. Principal reason for the patient's hospitalization is sepsis related to cholecystitis an intra-abdominal abscess which is being treated with percutaneous drainage and antibiotics. He was moved to the ICU several days ago because of respiratory failure requiring intubation. He is improving and potentially will be extubated later today or tomorrow. 10/19/2019: Continues to be in atrial fibrillation heart rate is somewhat rapid however is reasonable with his current dosage of much metoprolol. Heart rate is accelerating a little bit this morning as he is being weaned from sedation. Date of service 10/20/2019: Remains intubated, FiO2 is 30%. AFib with a controlled heart rate, 70-100. yesterday's low BP resolved, now mildly hypertensive. Infrequent PVCs, two 4 beat runs of V-tach. Started on Lasix and albumin by Dr. Parrish. Dr. Gonzales plans on placing a hepatic drain for abcess tmr. Spoke to at bedside. Date of service 10/27/2019: Still intubated sedated. AFib rate is well controlled. no Other changes Review of Systems Review of Systems: ROS unobtainable: Yes unobtainable due to endotracheal tube and unobtainable due to mental status Exam Const: General: comfortable and no acute distress Other: Chronically ill patient appears to be comfortable on the ventilator in the ICU HENMT: Mouth: Yes dry mucous membranes Eyes: Sclera: sclerae normal Pupils: Equal, round and reactive pupils present Neck: Neck: supple Thyroid: thyroid normal Other: Resp: Effort & Inspection: normal respiratory effort and other (Intubated and sedated) Auscultation: clear to auscultation bilaterally Other: Intubated, clear anterolaterally Cardio: Rate: not tachycardic Rhythm: abnormal rhythm irregularly irregular Heart sounds: no murmurs GI: Inspection: non-distended and other (abdomen not as distended. Starting tube feedings) Auscultation: abnormal bowel sounds (absent BS but soft.) and Hypoactive bowel sounds present Other: Abdomen soft bowel sounds diminished Urinary Catheter: Urinary Catheter: patent and draining Skin: General skin exam: normal color Neuro: Cranial nerves: Yes Equal, round and reactive pupils present Cognition (Neuro): normal cognition and abnormal cognition (Sedated) Other: sedated Extrem: General: normal to inspection and edema (Mild upper/lower ext edema) Other: 1+ lower extremity edema adequate distal pulses. Feet are warm. Hands are cool. Psych: Appearance: other (Intubated and sedated) Mental Status: mental status grossly abnormal Speech and movement: Other speech and movement exam findings present (Psych) (Mumbles at times) Affect: Sad affect present Other: Unresponsive Objective Data Vital Signs Vital Signs: Vital Signs - 24 hr 10/26/19 10:00 10/26/19 11:09 10/26/19 11:57 Temperature 36.7 C Pulse Rate 101 H 102 H 95 Respiratory Rate 18 10 L Blood Pressure 95/78 L 98/76 L Pulse Oximetry 97 100 99 10/26/19 12:00 10/26/19 13:12 10/26/19 13:18
[2019-10-27] MEDS: ALBUMIN HUMAN 25% 25 GM/100 ML 100 ML IVPB ×2 (10:24→20:05)
--- NOTE | 2019-10-27 11:28 | PM.PNGS ---
Progress Note: A&P Assessment and Plan (1) Gallbladder abscess: Code(s): K81.0 - Acute cholecystitis Status: Acute Assessment and Plan: Continue percutaneous drain 1, abscess resolved and now this is functioning primarily as a cholecystostomy tube draining bile. Will plan to get a cholangiogram through the tube in 4 weeks. ID following for antibiotic management, now off abx after receiving 14 days of Imipenem. (2) Hepatic abscess: Code(s): K75.0 - Abscess of liver Status: Acute Assessment and Plan: Percutaneous drains 2 and 3 removed yesterday. ID following for antibiotic management as mentioned above. (3) Respiratory failure: Code(s): J96.90 - Respiratory failure, unspecified, unspecified whether with hypoxia or hypercapnia Status: Acute Assessment and Plan: Wean vent as tolerated per Secondary Social Studies Teacher. Additional Plan Discussed plan of care with Dr. Christian acosta. Subjective Subjective Date/Time Seen: 10/27/19 09:50 Interval history: Patient intubated and sedated in ICU. Tolerating tube feeding. Review of Systems Review of Systems: ROS unobtainable: Yes unobtainable due to endotracheal tube Exam Const: General: no acute distress and other (intubated and sedated) Resp: Auscultation: diminished lung sounds Cardio: Rate: regular rate Rhythm: abnormal rhythm irregularly irregular GI: Inspection: other (mildly distended) GI Palp: Yes Soft to palpation and No Tenderness to palpation present (GI) Auscultation: normal bowel sounds Other: RUQ drain with bilious output in drainage bag. Urinary Catheter: Urinary Catheter: patent and draining Neuro: General: other (Sedated/intubated) Psych: Other: ELIANA Objective Data Vital Signs Vital Signs: Vital Signs - 24 hr 10/26/19 11:57 10/26/19 12:00 10/26/19 13:12 Temperature 98.1 F Pulse Rate 95 93 100 Respiratory Rate 10 L Blood Pressure 98/76 L Pulse Oximetry 99 99 10/26/19 13:18 10/26/19 13:46 10/26/19 14:00 Temperature Pulse Rate 98 111 H 101 H Respiratory Rate 17 23 H Blood Pressure 107/75 Pulse Oximetry 98 98 10/26/19 16:00 10/26/19 16:53 10/26/19 18:00 Temperature 98.3 F Pulse Rate 110 H 111 H 111 H Respiratory Rate 19 21 H Blood Pressure 104/70 102/70 Pulse Oximetry 96 100 98 10/26/19 19:43 10/26/19 20:00 10/26/19 20:07 Temperature 97.6 F Pulse Rate 118 H 121 H 121 H Respiratory Rate 24 H Blood Pressure 105/74 Pulse Oximetry 98 10/26/19 20:33 10/26/19 20:34 10/26/19 21:00 Temperature Pulse Rate 114 H 107 H 114 H Respiratory Rate 26 H 26 H Blood Pressure Pulse Oximetry 98 10/26/19 21:28 10/26/19 22:00 10/26/19 22:32 Temperature Pulse Rate 120 H 103 H 109 H Respiratory Rate 16 Blood Pressure 103/67 Pulse Oximetry 100 10/26/19 23:50 10/27/19 00:00 10/27/19 01:11 Temperature 97.4 F L Pulse Rate 107 H 102 H 98 Respiratory Rate 14 Blood Pressure 113/52 L Pulse Oximetry 97 10/27/19 01:58 10/27/19 02:08 10/27/19 02:11 Temperature Pulse Rate 89 80 93 Respiratory Rate 12 10 L Blood Pressure 129/90 Pulse Oximetry 99 99 10/27/19 04:00 10/27/19 05:16 10/27/19 05:50 Temperature 98.0 F Pulse Rate 92 94 103 H Respiratory Rate 17 14 Blood Pressure 124/76 120/94 H Pulse Oximetry 98 97 99 10/27/19 07:57 10/27/19 08:00 10/27/19 08:08 Temperature 97.3 F L Pulse Rate 97 99 Respiratory Rate 15 18 Blood Pressure 114/97 H Pulse Oximetry 95 10/27/19 08:10 10/27/19 08:16 10/27/19 08:53 Temperature Pulse Rate 98 98 99 Respiratory Rate 16 Blood Pressure Pulse Oximetry 100 10/27/19 10:00 10/27/19 10:41 Temperature Pulse Rate 82 90 Respiratory Rate 11 L Blood Pressure 122/88 Pulse Oximetry 100 100 Intake/Output Intake/Output: Intake & Output 10/24/19 10/25/19 10/26/19 10/27/19 23:59 23:59 23:59 23:59 Intake Total 1586 2289 1100 990 Output Total 2154 2102
[2019-10-27] MEDS: FUROSEMIDE INJ 40 MG/4 ML VIAL IV PUSH ×2 (11:38→21:57)
[2019-10-27 12:13] LABS: Glucose Point of Care 236 (65-105)
--- NOTE | 2019-10-27 12:15 | WPDINTPN ---
Progress Note: A&P Assessment and Plan (1) Acute respiratory failure: Qualifiers: Respiratory failure complication: hypoxia Qualified Code(s): J96.01 - Acute respiratory failure with hypoxia Code(s): J96.00 - Acute respiratory failure, unspecified whether with hypoxia or hypercapnia Status: Acute Assessment and Plan: Patient seen in the IMU was found to be in impending respiratory failure with gurgling respirations and chest congestion. Discussed with spouse with [facility], who was agreeable for intubation. -patient was successfully intubated in the ICU on 10/15/2019 - 10/17 -extubated after successful weaning trial but after few hours had difficulty clearing secretions and hypoxia. Patient was placed on non-rebreather mass and suction frequently as he was still awake and following commands to try to avoid re-intubation. 10/18 worsening respiratory distress with worsening hypoxia, tachycardic tachypneic, rattling secretions in his upper airway. Reintubated with difficulty with significant swelling of the hypopharynx and around the vocal cords. Requiring assistance from anesthesia -Pulmonary consulted and bronchoscopy was done. Culture sent and negative as of now -chest x-ray and ABGs reviewed, chest x-ray continues to shows bilateral infiltrates -placed patient on ASV mode of ventilation, tolerating well, if patient tires out will place him back on CMV mode of ventilation. Patient has a good air leak when I deflated the ETT balloon -last sputum cultures have been obtained and yeast which is likely a colonizer -patient is on Pulmozyme for thick secretions -patient is overall volume overloaded and continue Lasix with albumin - CT scan of the neck on 10/26/2019 and soft tissue showed mild emphysema, the pharynx and larynx are remarkable, small pleural effusion, right thyroid nodule, dental disease - placed on SBT, will obtain gas and evaluate for extubation (2) Acute encephalopathy: Code(s): G93.40 - Encephalopathy, unspecified Status: Acute Assessment and Plan: RESOLVED Patient was in the intermediate unit and was found to be in acute encephalopathy, obtunded, -likely due to hypoxia, possible liver dysfunction, severe sepsis -ammonia levels are normal -improved overall -patient is on Precedex infusion, is awake, alert, follows simple commands in all extremities (3) Gallbladder abscess: Code(s): K81.0 - Acute cholecystitis Status: Acute Assessment and Plan: Surgery service managing Abscess culture growing ESBL E coli, infectious disease following the patient, patient is on Primaxin CT A/P 10/18 IMPRESSION: 1. Moderate volume of ascites with areas of peritoneal thickening and enhancement in left paracolic gutter and in the pelvis, likely an exudate. 2. Rim-enhancing fluid collection at the undersurface of right hepatic lobe, consistent with abscess. 3. Pigtail drains in the gallbladder fossa and anteroinferior to the liver. No residual fluid in these locations. 10/20-3rd CT-guided drain placed. Out more than 200 cc since placement. Small amount of drainage from 1st drain and minimal from 2nd Continue antibiotic therapy at this time. CT scan of the abdomen and pelvis on 10/26/2019 showed the abscess on the undersurface of the right hepatic lobe with improvement, another fluid collection left paracolic gutter and pelvis with interval improvement small volume free ascites, moderate-size pleural effusion worse on the right 2 of the 3 right upper quadrant drains were removed on 10/26/2019 by surgery (4) COPD (chronic obstructive pulmonary disease): Code(s): J44.9 - Chronic obstructive pulmonary disease, unspecified Status: Chronic Assessment and Plan: Continue bronchodilators (5) Afib: Qualifiers: Atrial fibrillation type: unspecified Qualified Code(s): I48.91 - Unspecified atrial fibrillation Code(s): I48.91 - Unspecified atrial fibrill
[2019-10-27] MEDS: INSULIN ASPART (*BKC) 100 UNITS/ML SUB-Q (12:25)
--- NOTE | 2019-10-27 13:16 | PCDIET ---
Nutrition Follow-Up Complete: Nutrition Diagnosis: Inadequate oral intake related to multiple medical issues as evidenced by NPO diet, previous meal refusals on advanced diet. Nutrition Goal: Patient to meet estimated needs Goal in progress. Patient previously tolerating Vital 1.5 at 50mL/hr goal rate. MD ordered to hold tube feedings this morning for possible extubation today. Tube feedings to resume if unable to extubate. Last recorded weight is 103.8 kg which is increased from last review, despite -I/O. Bowel Motility: No BM x few days, then liquid BM. Could consider KUB to check for stool burden. Labs Reviewed: Hgb (8.3), Hct (25.9), TP (6.0), Alb (3.7), Glu (200), Na (136) Meds Noted: Miralax, KCl, Vitamin B1, Atrovent, Xopenex, MVI, Protonix, Albumin, Precedex, Folic Acid, Lasix, Novolog, Lantus Additional Notes: Deep tissue injury to buttock. Wound nurse following. Will continue to monitor with same goal. Nutrition Monitoring and Evaluation: Follow up every Saturday/Saturday. Follow daily in ICU rounds.
[2019-10-27 13:51] LABS: Alveolar/Arterial O2 Gradient 81.8 mmHg; Fractional Inspired Oxygen 30 %; HCO3 ABG 29.5 mEq/l (22.0-26.0); Oxygen Content ABG 12.5 %vol (16.0-22.0); Oxygen Saturation ABG 97.3 % (95.0-100.0); Oxyhemoglobin 94.7 % THb (90.0-100.0); PCO2 ABG 38.3 mmHg (35.0-45.0); PO2 ABG 87.1 mmHg (80.0-100.0); Total Hemoglobin 9.3 g/dL (12.0-18.0); pH ABG 7.504 (7.350-7.450)
[2019-10-27 13:52] LABS: Arterial Blood Gas Vent Mode SPONTANEOUS; Device VENTILATOR; Modified Allen's Test Pass; Site Drawn LEFT RADIAL
[2019-10-27 13:53] LABS: Arterial Blood Gas PEEP 5 cmH2O; Arterial Blood Gas Pressure Support 8 cmH2O
[2019-10-27 17:29] LABS: Glucose Point of Care 103 (65-105)
[2019-10-27 19:32] LABS: Glucose Point of Care 100 (65-105)
--- NOTE | 2019-10-27 21:06 | PM.PNPUL ---
Progress Note: A&P Assessment and Plan (1) Acute respiratory failure: Qualifiers: Respiratory failure complication: hypoxia Qualified Code(s): J96.01 - Acute respiratory failure with hypoxia Code(s): J96.00 - Acute respiratory failure, unspecified whether with hypoxia or hypercapnia Status: Acute Assessment and Plan: concern for recurrent asiration and reinutbation. Very weak cough. - if going to extubate monitor carefully - avoid sedatives and narcotics - speech/swallow eval - will need tracheostomy if fails second extubation (2) COPD (chronic obstructive pulmonary disease): Qualifiers: COPD type: unspecified COPD Qualified Code(s): J44.9 - Chronic obstructive pulmonary disease, unspecified Code(s): J44.9 - Chronic obstructive pulmonary disease, unspecified Status: Chronic (3) Smoking: Code(s): F17.200 - Nicotine dependence, unspecified, uncomplicated Status: Acute Subjective Date/time seen: 10/27/19 21:06 Interval history: Awake, alert on ASV with vent weaning but cough is very weak with suctioning and I'm concerned about aspiration and reintubation Review of Systems Review of Systems: All systems reviewed & are unremarkable except as noted in HPI and below Exam Const: General: comfortable Other: sedated, orally intubated Eyes: General: appearance normal, both eyes and all related structures Neck: Neck: supple Resp: Auscultation: crackles Cardio: Rate: tachycardic Rhythm: regular rhythm Urinary Catheter: Urinary Catheter: patent and draining Skin: General skin exam: normal color Neuro: Other: sedated Objective Data Vital Signs Vital Signs: Vital Signs - 24 hr 10/26/19 21:28 10/26/19 22:00 10/26/19 22:32 Temperature Pulse Rate 120 H 103 H 109 H Respiratory Rate 16 Blood Pressure 103/67 Pulse Oximetry 100 10/26/19 23:50 10/27/19 00:00 10/27/19 01:11 Temperature 36.3 C L Pulse Rate 107 H 102 H 98 Respiratory Rate 14 Blood Pressure 113/52 L Pulse Oximetry 97 10/27/19 01:58 10/27/19 02:08 10/27/19 02:11 Temperature Pulse Rate 89 80 93 Respiratory Rate 12 10 L Blood Pressure 129/90 Pulse Oximetry 99 99 10/27/19 04:00 10/27/19 05:16 10/27/19 05:50 Temperature 36.7 C Pulse Rate 92 94 103 H Respiratory Rate 17 14 Blood Pressure 124/76 120/94 H Pulse Oximetry 98 97 99 10/27/19 07:57 10/27/19 08:00 10/27/19 08:08 Temperature 36.3 C L Pulse Rate 97 99 Respiratory Rate 15 18 Blood Pressure 114/97 H Pulse Oximetry 95 10/27/19 08:10 10/27/19 08:16 10/27/19 08:53 Temperature Pulse Rate 98 98 99 Respiratory Rate 16 Blood Pressure Pulse Oximetry 100 10/27/19 10:00 10/27/19 10:41 10/27/19 12:00 Temperature Pulse Rate 82 90 100 Respiratory Rate 11 L Blood Pressure 122/88 Pulse Oximetry 100 100 10/27/19 12:06 10/27/19 14:00 10/27/19 14:15 Temperature 36.8 C Pulse Rate 104 H 99 Respiratory Rate 18 Blood Pressure 102/84 Pulse Oximetry 95 87 L 96 10/27/19 14:20 10/27/19 14:32 10/27/19 16:00 Temperature 36.4 C L Pulse Rate 99 98 100 Respiratory Rate 18 16 18 Blood Pressure 102/84 Pulse Oximetry 92 10/27/19 16:46 10/27/19 18:00 10/27/19 19:58 Temperature Pulse Rate 111 H 115 H Respiratory Rate 26 H 21 H Blood Pressure 125/96 H Pulse Oximetry 96 92 10/27/19 20:02 Temperature Pulse Rate 126 H Respiratory Rate Blood Pressure Pulse Oximetry Intake/Output Intake/Output: Intake & Output 10/24/19 10/25/19 10/26/19 10/27/19 23:59 23:59 23:59 23:59 Intake Total 1586 2289 1100 1521 Output Total 2154 2105 2200 [address] [place] [id number] 184 -1100 -89 Meds/Results Medications: Active Medications Generic Name Dose Route Start Last Admin Trade Name Freq PRN Reason Stop Dose Admin Acetaminophen 650 mg 10/10/19 11:24 10/10/19 12:18 Tylenol Tablet PO 650 mg Q6H PRN Administrati
[2019-10-27 23:38] LABS: Glucose Point of Care 93 (65-105)
[2019-10-28] VITALS (30 sets, daily range): BP systolic 117–153; BP diastolic 73–115; PULSE 108–137; RESP 18–30; TEMP 36.3–37.2; O2SAT 93–100
[2019-10-28 02:13] LABS: Alveolar/Arterial O2 Gradient 289.1 mmHg; Base Excess ABG 8.3 mEq/l (+/-2.0); Fractional Inspired Oxygen 60 %; HCO3 ABG 34.5 mEq/l (22.0-26.0); Modified Allen's Test Pass; Oxygen Content ABG 15.1 %vol (16.0-22.0); Oxygen Saturation ABG 95.1 % (95.0-100.0); Oxyhemoglobin 92.9 % THb (90.0-100.0); PCO2 ABG 56.4 mmHg (35.0-45.0); PO2 ABG 76.7 mmHg (80.0-100.0); PO2 FiO2 Ratio Arterial Blood 1.28 %; Site Drawn LEFT RADIAL; Total Hemoglobin 11.5 g/dL (12.0-18.0); pH ABG 7.405 (7.350-7.450)
[2019-10-28 02:14] LABS: Device HIGH FLOW NASAL CANN
[2019-10-28] MEDS: IPRATROPIUM BR 0.02% INH SOLN 0.5 MG/2.5 ML VIAL INHALATION ×4 (03:09→20:45)
[2019-10-28 05:00] LABS: Base Excess ABG 8.6 mEq/l (+/-2.0); Carboxyhemoglobin 0.2 % THb (0-2.0); Fractional Inspired Oxygen 60 %; HCO3 ABG 33.1 mEq/l (22.0-26.0); Methemoglobin ABG 0.2 %THb (0-1.5); Oxygen Content ABG 16.9 %vol (16.0-22.0); Oxygen Saturation ABG 94.8 % (95.0-100.0); Oxyhemoglobin 92.6 % THb (90.0-100.0); PCO2 ABG 45.4 mmHg (35.0-45.0); PO2 ABG 68.9 mmHg (80.0-100.0); PO2 FiO2 Ratio Arterial Blood 1.15 %; pH ABG 7.481 (7.350-7.450)
[2019-10-28 05:01] LABS: Device NON-INVASIVE VENT; Modified Allen's Test Pass; Site Drawn LEFT RADIAL
[2019-10-28 05:02] LABS: Non-Invasive Expiratory Pressure 6 CMH2O; Non-Invasive Inspiratory Pressure 14 CMH2O; Non-Invasive Vent Rate 14 /MIN
[2019-10-28] MEDS: CENTRAL LINE FLUSH 10 ML IV PUSH ×3 (05:56→21:08)
[2019-10-28 06:02] LABS: Hematocrit 29.3 % (42.0-52.0); Hemoglobin 9.4 g/dL (14.0-18.0); Mean Corpuscular HGB Conc 32.1 g/dl (32-36); Mean Corpuscular Hemoglobin 31.6 pg (26-34); Mean Corpuscular Volume 98.7 fl (80-100); Mean Platelet Volume 10.4 fl (7.4-10.4); Platelet Count Result 251 k/mm3 (150-375); Red Blood Count 2.97 M/mm3 (4.6-6.20); Red Cell Distribution Width 17.4 % (11.5-14.5)
[2019-10-28 06:21] LABS: Alanine Aminotransferase 17 U/L (4-50); Albumin Level 3.9 g/dL (3.5-5.1); Alkaline Phosphatase 114 U/L (38-126); Aspartate Amino Transferase 37 U/L (17-59); Bilirubin,Total 0.8 mg/dL (0.2-1.3); Blood Urea Nitrogen 21 mg/dL (9-20); Calcium 9.6 mg/dL (8.4-10.2); Carbon Dioxide 36 mmol/L (22-30); Chloride 95 mmol/L (98-107); Estimated CRCL calculation 119 ml/min; Estimated Glomerular Filt Rate > 60; Glucose 80 mg/dL (75-110); Magnesium 2.2 mg/dL (1.6-2.3); Potassium 3.5 mmol/L (3.4-5.0); Sodium 137 mmol/L (137-145)
[2019-10-28] MEDS: DEXTROSE 50% 25 GM/50 ML SYRINGE IV PUSH (08:21)
[2019-10-28] MEDS: METOPROLOL TARTRATE INJ 5 MG/5 ML VIAL IV PUSH ×3 (08:22→21:08)
[2019-10-28] MEDS: FUROSEMIDE INJ 40 MG/4 ML VIAL IV PUSH ×2 (08:23→16:18)
[2019-10-28] MEDS: TIMOLOL MALEATE 0.5% OP SOLN 5 ML BTL 1 DROP EACH EYE ×2 (08:23→21:09)
[2019-10-28] MEDS: PANTOPRAZOLE SODIUM IV 40 MG VIAL IV PUSH (08:23)
[2019-10-28] MEDS: ENOXAPARIN 40 MG/0.4 ML SYRINGE SUB-Q (08:24)
[2019-10-28] MEDS: DORNASE ALFA INH SOLN 1 MG/ML 2.5 ML AMP 2.5 MG INHALATION ×2 (08:30→20:51)
[2019-10-28 08:38] LABS: Glucose Point of Care 63 (65-105)
[2019-10-28] MEDS: DEXTROSE 10% 1,000 ML 30 ML IV CONT (09:52)
[2019-10-28] MEDS: AZTREONAM 1 GM in DEXTROSE 5% IN WATER 50 ML IVPB ×2 (09:53→17:39)
[2019-10-28 10:01] LABS: Glucose Point of Care 80 (65-105)
--- NOTE | 2019-10-28 10:28 | PM.PNCARD ---
Progress Note: A&P Assessment and Plan (1) Afib: Qualifiers: Atrial fibrillation type: unspecified Qualified Code(s): I48.91 - Unspecified atrial fibrillation Code(s): I48.91 - Unspecified atrial fibrillation Status: Acute Assessment and Plan: Of unknown duration when first seen in July of this year. At that time he was difficult to control. Was on a significant dose of diltiazem along with carvedilol. Admitted with abdominal pain, acute cholecystitis and hepatic abcesses and elevated heart rates. Due to his mild LV dysfunction (EF 45-50% 07/27/2019) beta edmund is being used. Heart rates now controlled. continue p.o. metoprolol. Replace potassium Not a candidate for anticoagulation due to his alcohol abuse and reported falling. Continue aspirin 325 mg. IV diltiazem 10 mg x 1 now for for marked hypertension and tachycardia. (2) Essential hypertension: Code(s): I10 - Essential (primary) hypertension Status: Chronic (3) COPD (chronic obstructive pulmonary disease): Qualifiers: COPD type: unspecified COPD Qualified Code(s): J44.9 - Chronic obstructive pulmonary disease, unspecified Code(s): J44.9 - Chronic obstructive pulmonary disease, unspecified Status: Chronic Subjective Date/time seen: 10/28/19 10:28 Interval history: 69-year-old man with history of chronic atrial fibrillation being managed with rate control. Principal reason for the patient's hospitalization is sepsis related to cholecystitis an intra-abdominal abscess which is being treated with percutaneous drainage and antibiotics. He was moved to the ICU several days ago because of respiratory failure requiring intubation. He is improving and potentially will be extubated later today or tomorrow. 10/19/2019: Continues to be in atrial fibrillation heart rate is somewhat rapid however is reasonable with his current dosage of much metoprolol. Heart rate is accelerating a little bit this morning as he is being weaned from sedation. Date of service 10/20/2019: Remains intubated, FiO2 is 30%. AFib with a controlled heart rate, 70-100. yesterday's low BP resolved, now mildly hypertensive. Infrequent PVCs, two 4 beat runs of V-tach. Started on Lasix and albumin by Dr. Parrish. Dr. Gonzales plans on placing a hepatic drain for abcess tmr. Spoke to at bedside. Date of service 10/27/2019: Still intubated sedated. AFib rate is well controlled. no Other changes Date of service 10/28/2019: Patient is now extubated. Does seem to be in some respiratory distress but feels better per patient. Heart rate is not quite fast and blood pressure is markedly elevated. No chest pain as Review of Systems Review of Systems: All systems reviewed & are unremarkable except as noted in HPI and below Constitutional: Constitutional: Denies body ache(s) Eyes: Eyes: Denies blurry vision ENT: Denies epistaxis Cardiovascular: Cardiovascular: Reports chest pain Respiratory: Respiratory: Reports dyspnea Gastrointestinal: Gastrointestinal: Denies abdominal pain Genitourinary: Genitourinary: Denies hematuria Musculoskeletal: Musculoskeletal: Denies neck pain Integumentary/Breasts: Skin/Breast: Denies dry skin Neurologic: Denies headache(s) Psychiatric: Psychiatric: Denies anxiety Exam Const: General: comfortable and no acute distress Other: Chronically ill patient on BiPAP HENMT: Mouth: Yes dry mucous membranes Eyes: Sclera: sclerae normal Pupils: Equal, round and reactive pupils present Neck: Neck: supple Thyroid: thyroid normal Other: Resp: Effort & Inspection: normal respiratory effort Auscultation: clear to auscultation bilaterally Other: Intubated, clear anterolaterally Cardio: Rate: tachycardic Rhythm: abnormal rhythm irregularly irregular Heart sounds: no murmurs GI: Inspection: non-distended and other (abdomen not as distended. Starting tube feedings) Auscultation: abnormal b
[2019-10-28] MEDS: dilTIAZem HCl INJ 25 MG/5 ML VIAL 10 MG IV PUSH (11:04)
--- NOTE | 2019-10-28 11:11 | PCDIET ---
ICU Rounding Note: Patient extubated 10/27/19 but now on bipap. MD keeping NPO at this time. If unable to participate in swallow evaluation in next 24-48 hours, would resume nutrition support. Last recorded weight is 100.6kg which is down from last review. -I/O. Bowel Motility: +BM today. Labs Reviewed: Hgb (9.4), Hct (29.3), BUN (21), Cr (0.6), TP (6.0) Meds Noted: Aztreonam, Folic Acid, Lasix, Novolog, Lantus, Atrovent, Xopenex, MVI, Protonix, Vitamin B1, Vancomycin Additional Notes: Buttocks with Mepilex. Wound nurse following. Following daily in ICU rounds. Assessing/reassessing every 3 days.
--- NOTE | 2019-10-28 12:19 | WPDINFPN2 ---
Progress Note: A&P Assessment and Plan (1) Gallbladder abscess: Code(s): K81.0 - Acute cholecystitis Status: Acute Assessment and Plan: 1. Acute cholecystitis with abscess, MDRO isolated. [address] His infection is resolved by microbiology testing/exam/labs 2. Dysphagia. 3. Respiratory distress with lung infiltrates, possible ARDS due to #1. I personally reviewed his CXR: no change in recent days. Radiologist reading noted. Unfortunately has new leukocytosis 4. Yeast in sputum, colonizer and not pathogenic in this patient REC off Imipenem 5 days (14 days Rx). Agree empiric Aztreo/Vanc for potential HCAP. Poor prognosis. Discussed. Subjective Date/time seen: 10/28/19 12:19 Interval history: extubated, awake does not verbalize Exam Narrative: Exam Narrative: afebrile Const: General: no acute distress Resp: Auscultation: rales, no wheezes and diminished lung sounds Cardio: Rate: regular rate Rhythm: regular rhythm Heart sounds: no murmurs GI: Inspection: distended GI Palp: Yes Soft to palpation, No Tenderness to palpation present (GI) and No Guarding due to palpation present (GI) Percussion: Yes tympanic to percussion Skin: General skin exam: no rashes or lesions noted Objective Data Vital Signs Vital Signs: Vital Signs - 24 hr 10/27/19 14:00 10/27/19 14:15 10/27/19 14:20 Temperature 36.8 C Pulse Rate 99 99 Respiratory Rate 18 18 Blood Pressure 102/84 Pulse Oximetry 87 L 96 10/27/19 14:32 10/27/19 16:00 10/27/19 16:46 Temperature 36.4 C L Pulse Rate 98 100 Respiratory Rate 16 18 Blood Pressure 102/84 Pulse Oximetry 92 96 10/27/19 18:00 10/27/19 19:55 10/27/19 19:58 Temperature Pulse Rate 111 H 115 H Respiratory Rate 26 H 21 H Blood Pressure 125/96 H Pulse Oximetry 92 86 L 10/27/19 20:00 10/27/19 20:02 10/27/19 20:18 Temperature 36.9 C Pulse Rate 115 H 126 H 110 H Respiratory Rate 20 20 Blood Pressure 128/99 H Pulse Oximetry 93 10/27/19 20:45 10/27/19 22:00 10/28/19 00:00 Temperature 37.2 C Pulse Rate 115 H 125 H Respiratory Rate 24 H 25 H Blood Pressure 122/85 126/94 H Pulse Oximetry 91 93 95 10/28/19 02:00 10/28/19 02:45 10/28/19 03:10 Temperature Pulse Rate 134 H 121 H 124 H Respiratory Rate 20 23 H 23 H Blood Pressure 117/84 Pulse Oximetry 93 93 10/28/19 03:20 10/28/19 04:00 10/28/19 04:42 Temperature 36.9 C Pulse Rate 120 H 135 H 130 H Respiratory Rate 20 18 28 H Blood Pressure 117/84 Pulse Oximetry 95 96 10/28/19 06:00 10/28/19 08:00 10/28/19 08:22 Temperature 36.6 C Pulse Rate 120 H 137 H 137 H Respiratory Rate 28 H 30 H Blood Pressure 133/97 H 150/115 H Pulse Oximetry 99 97 10/28/19 08:30 10/28/19 09:47 10/28/19 10:00 Temperature Pulse Rate 129 H 120 H 120 H Respiratory Rate 25 H 25 H 24 H Blood Pressure 153/102 H Pulse Oximetry 100 100 Intake/Output Intake/Output: Intake & Output 10/25/19 10/26/19 10/27/19 10/28/19 23:59 23:59 23:59 23:59 Intake Total 2289 1100 1521 50 Output Total 2105 2200 1610 860 Balance 184 -1100 -89 -810 Meds/Results Medications: Active Medications Generic Name Dose Route Start Last Admin Trade Name Freq PRN Reason Stop Dose Admin Acetaminophen 650 mg 10/10/19 11:24 10/10/19 12:18 Tylenol Tablet PO 650 mg Q6H PRN Administration Mild Pain (1-3) or Fever Aspirin 325 mg 10/17/19 08:00 10/28/19 08:22 Aspirin FEED TUBE Not Given DAILY@0800 [facility] Dextrose 12.5 gm 10/22/19 07:39 10/28/19 08:21 Dextrose 50% Syringe IV PUSH 12.5 gm PRN PRN Administration Hypoglycemia Protocol Dornase Fernando 2.5 mg 10/14/19 20:00 10/28/19 08:30 Pulmozyme INHALATION 2.5 mg Q12HRT MONET Administration Enoxaparin Sodium 40 mg 10/09/19 09:00 10/28/19 08:24 Lovenox SUB-Q 40 mg DAILY MONET Administration Folic Acid 1 mg 10/09/19 09:00 10/28/19 08:22 Folic Acid PO Not G
[2019-10-28 12:43] LABS: Glucose Point of Care 135 (65-105)
--- NOTE | 2019-10-28 13:30 | WPDINTPN ---
Progress Note: A&P Assessment and Plan (1) Acute respiratory failure: Qualifiers: Respiratory failure complication: hypoxia Qualified Code(s): J96.01 - Acute respiratory failure with hypoxia Code(s): J96.00 - Acute respiratory failure, unspecified whether with hypoxia or hypercapnia Status: Acute Assessment and Plan: Patient seen in the IMU was found to be in impending respiratory failure with gurgling respirations and chest congestion. Discussed with spouse with Dinorah, who was agreeable for intubation. -patient was successfully intubated in the ICU on 10/15/2019 - 10/17 -extubated after successful weaning trial but after few hours had difficulty clearing secretions and hypoxia. Patient was placed on non-rebreather mass and suction frequently as he was still awake and following commands to try to avoid re-intubation. 10/18 worsening respiratory distress with worsening hypoxia, tachycardic tachypneic, rattling secretions in his upper airway. Reintubated with difficulty with significant swelling of the hypopharynx and around the vocal cords. Requiring assistance from anesthesia -Pulmonary consulted and bronchoscopy was done. Culture sent and negative as of now -chest x-ray and ABGs reviewed, chest x-ray continues to shows bilateral infiltrates -placed patient on ASV mode of ventilation, tolerating well, if patient tires out will place him back on CMV mode of ventilation. Patient has a good air leak when I deflated the ETT balloon -last sputum cultures have been obtained and yeast which is likely a colonizer -patient is on Pulmozyme for thick secretions -patient is overall volume overloaded and continue Lasix with albumin - CT scan of the neck on 10/26/2019 and soft tissue showed mild emphysema, the pharynx and larynx are remarkable, small pleural effusion, right thyroid nodule, dental disease - patient extubated successfully on 10/27/2019 -. patient did well all day long yesterday on 2 L nasal cannula and overnight was tachycardic with AFib RVR, sounded congested to the bedside RN, dropped his O2 sats. Requiring BiPAP, he has been comfortable on the BiPAP, decreased his IPAP to 12. will place him on high-flow nasal cannula with intermittent BiPAP as needed - if patient fails BiPAP he will need to be read intubated after which she will require tracheostomy. Likely secondary to decreased reflects and inability to clear his secretions (2) Afib: Qualifiers: Atrial fibrillation type: unspecified Qualified Code(s): I48.91 - Unspecified atrial fibrillation Code(s): I48.91 - Unspecified atrial fibrillation Status: Acute Assessment and Plan: patient in AFib RVR with rates in the 120s to 130s, given metoprolol IV scheduled with no improvement. Will start patient on Cardizem infusion - maintain heart rates between 90-110 - appreciate cardiology following the patient (3) COPD (chronic obstructive pulmonary disease): Qualifiers: COPD type: unspecified COPD Qualified Code(s): J44.9 - Chronic obstructive pulmonary disease, unspecified Code(s): J44.9 - Chronic obstructive pulmonary disease, unspecified Status: Chronic Assessment and Plan: patient required BiPAP post extubation, ABG showed mild hypercapnia which resolved with BiPAP - continue high-flow nasal cannula and intermittent BiPAP as needed - started antibiotics (4) Gallbladder abscess: Code(s): K81.0 - Acute cholecystitis Status: Acute Assessment and Plan: Surgery service managing Abscess culture growing ESBL E coli, infectious disease following the patient, patient is on Primaxin CT A/P 10/18 IMPRESSION: 1. Moderate volume of ascites with areas of peritoneal thickening and enhancement in left paracolic gutter and in the pelvis, likely an exudate. 2. Rim-enhancing fluid collection at the undersurface of right hepatic lobe, consistent with abscess. 3. Pigtail drains in the gallbladder fossa an
[2019-10-28 16:57] LABS: Alveolar/Arterial O2 Gradient 401.5 mmHg; Base Excess ABG 10.7 mEq/l (+/-2.0); Fractional Inspired Oxygen 82 %; HCO3 ABG 34.4 mEq/l (22.0-26.0); Oxygen Content ABG 15.3 %vol (16.0-22.0); Oxyhemoglobin 97.2 % THb (90.0-100.0); PO2 ABG 139.3 mmHg (80.0-100.0)
[2019-10-28 16:58] LABS: Device HIGH FLOW THERAPY; Modified Allen's Test Pass; Site Drawn RIGHT RADIAL; pH ABG 7.531 (7.350-7.450)
[2019-10-28 17:54] LABS: Glucose Point of Care 93 (65-105)
[2019-10-28 23:54] LABS: Glucose Point of Care 131 (65-105)
[2019-10-29] VITALS (39 sets, daily range): BP systolic 91–136; BP diastolic 65–109; PULSE 79–118; RESP 17–25; TEMP 36.3–37.1; O2SAT 95–100
[2019-10-29] MEDS: AZTREONAM 1 GM in DEXTROSE 5% IN WATER 50 ML IVPB ×3 (01:01→18:02)
[2019-10-29] MEDS: IPRATROPIUM BR 0.02% INH SOLN 0.5 MG/2.5 ML VIAL INHALATION ×4 (01:48→19:41)
[2019-10-29] MEDS: METOPROLOL TARTRATE INJ 5 MG/5 ML VIAL IV PUSH ×4 (04:07→21:02)
[2019-10-29 04:35] LABS: Hematocrit 26.5 % (42.0-52.0); Hemoglobin 8.4 g/dL (14.0-18.0); Mean Corpuscular HGB Conc 31.7 g/dl (32-36); Mean Corpuscular Hemoglobin 30.8 pg (26-34); Mean Corpuscular Volume 97.1 fl (80-100); Mean Platelet Volume 10.2 fl (7.4-10.4); Platelet Count Result 206 k/mm3 (150-375); Red Blood Count 2.73 M/mm3 (4.6-6.20); Red Cell Distribution Width 17.1 % (11.5-14.5); White Blood Count 9.4 K/mm3 (4.5-10.0)
[2019-10-29 04:58] LABS: Alanine Aminotransferase 13 U/L (4-50); Albumin Level 3.4 g/dL (3.5-5.1); Alkaline Phosphatase 93 U/L (38-126); Aspartate Amino Transferase 16 U/L (17-59); Bilirubin,Total 0.9 mg/dL (0.2-1.3); Blood Urea Nitrogen 20 mg/dL (9-20); Calcium 8.8 mg/dL (8.4-10.2); Carbon Dioxide 35 mmol/L (22-30); Chloride 93 mmol/L (98-107); Estimated CRCL calculation 119 ml/min; Estimated Glomerular Filt Rate > 60; Glucose 110 mg/dL (75-110); Magnesium 2.1 mg/dL (1.6-2.3); Phosphorus 3.7 mg/dL (2.5-4.5); Sodium 135 mmol/L (137-145)
[2019-10-29 05:04] LABS: Alveolar/Arterial O2 Gradient 304.1 mmHg; Base Excess ABG 9.5 mEq/l (+/-2.0); Carboxyhemoglobin 0.3 % THb (0-2.0); Fractional Inspired Oxygen 60 %; HCO3 ABG 33.1 mEq/l (22.0-26.0); Methemoglobin ABG 0.1 %THb (0-1.5); Oxygen Content ABG 12.2 %vol (16.0-22.0); Oxygen Saturation ABG 96.6 % (95.0-100.0); Oxyhemoglobin 94.3 % THb (90.0-100.0); PCO2 ABG 41.4 mmHg (35.0-45.0); PO2 ABG 78.2 mmHg (80.0-100.0); Reduced Hemoglobin 5.3 %THb (0-5.0); Total Hemoglobin 9.1 g/dL (12.0-18.0)
[2019-10-29 05:06] LABS: Device BIPAP; Expiratory Pressure 6 cmH2O; Inspiratory Pressure 12 cmH2O; Modified Allen's Test Pass; Site Drawn RIGHT RADIAL; pH ABG 7.521 (7.350-7.450)
[2019-10-29] MEDS: CENTRAL LINE FLUSH 10 ML IV PUSH ×3 (05:27→21:03)
[2019-10-29 05:31] LABS: Glucose Point of Care 120 (65-105)
[2019-10-29] MEDS: DORNASE ALFA INH SOLN 1 MG/ML 2.5 ML AMP 2.5 MG INHALATION ×2 (08:39→19:46)
--- NOTE | 2019-10-29 08:46 | PM.PNCARD ---
Progress Note: A&P Assessment and Plan (1) Afib: Qualifiers: Atrial fibrillation type: unspecified Qualified Code(s): I48.91 - Unspecified atrial fibrillation Code(s): I48.91 - Unspecified atrial fibrillation Status: Acute Assessment and Plan: Of unknown duration when first seen in July of this year. At that time he was difficult to control. Was on a significant dose of diltiazem along with carvedilol. Admitted with abdominal pain, acute cholecystitis and hepatic abcesses and elevated heart rates. Due to his mild LV dysfunction (EF 45-50% 07/27/2019) beta edmund is being used. Heart rates now controlled. continue p.o. metoprolol. Replace potassium Not a candidate for anticoagulation due to his alcohol abuse and reported falling. Continue aspirin 325 mg. Cardizem CD 240mg p.o.daily DC IV diltiazem (2) Essential hypertension: Code(s): I10 - Essential (primary) hypertension Status: Chronic (3) COPD (chronic obstructive pulmonary disease): Qualifiers: COPD type: unspecified COPD Qualified Code(s): J44.9 - Chronic obstructive pulmonary disease, unspecified Code(s): J44.9 - Chronic obstructive pulmonary disease, unspecified Status: Chronic Subjective Date/time seen: 10/29/19 08:46 Interval history: 69-year-old man with history of chronic atrial fibrillation being managed with rate control. Principal reason for the patient's hospitalization is sepsis related to cholecystitis an intra-abdominal abscess which is being treated with percutaneous drainage and antibiotics. He was moved to the ICU several days ago because of respiratory failure requiring intubation. He is improving and potentially will be extubated later today or tomorrow. 10/19/2019: Continues to be in atrial fibrillation heart rate is somewhat rapid however is reasonable with his current dosage of much metoprolol. Heart rate is accelerating a little bit this morning as he is being weaned from sedation. Date of service 10/20/2019: Remains intubated, FiO2 is 30%. AFib with a controlled heart rate, 70-100. yesterday's low BP resolved, now mildly hypertensive. Infrequent PVCs, two 4 beat runs of V-tach. Started on Lasix and albumin by Dr. Parrish. Dr. Gonzales plans on placing a hepatic drain for abcess tmr. Spoke to at bedside. Date of service 10/27/2019: Still intubated sedated. AFib rate is well controlled. no Other changes Date of service 10/28/2019: Patient is now extubated. Does seem to be in some respiratory distress but feels better per patient. Heart rate is not quite fast and blood pressure is markedly elevated. No chest pain Date of service 10/29/2019: Resting comfortably in bed. Heart rate is controlled on diltiazem drip. No chest pain or shortness of breath Review of Systems Review of Systems: All systems reviewed & are unremarkable except as noted in HPI and below ROS unobtainable: Yes unobtainable due to endotracheal tube and unobtainable due to mental status Constitutional: Constitutional: Denies body ache(s) and Denies headache(s) Eyes: Eyes: Denies blurry vision ENT: Denies headache(s), Denies epistaxis and Denies neck pain Cardiovascular: Cardiovascular: Denies chest pain and Reports dyspnea Respiratory: Respiratory: Reports dyspnea Gastrointestinal: Gastrointestinal: Denies abdominal pain Genitourinary: Genitourinary: Denies hematuria Musculoskeletal: Musculoskeletal: Denies neck pain Integumentary/Breasts: Skin/Breast: Denies dry skin Neurologic: Denies headache(s) Psychiatric: Psychiatric: Denies anxiety Exam Const: General: comfortable and no acute distress Other: Chronically ill patient on BiPAP HENMT: Mouth: Yes dry mucous membranes Eyes: Sclera: sclerae normal Pupils: Equal, round and reactive pupils present Neck: Neck: supple Thyroid: thyroid normal Other: Resp: Effort & Inspection: normal respiratory effort Auscultation:
[2019-10-29] MEDS: ENOXAPARIN 40 MG/0.4 ML SYRINGE SUB-Q (09:20)
[2019-10-29] MEDS: MULTIVITAMINS THERAPEUTIC TAB (*BKC) 1 TABLET PO (09:21)
[2019-10-29] MEDS: FUROSEMIDE INJ 40 MG/4 ML VIAL IV PUSH ×2 (09:21→16:26)
[2019-10-29] MEDS: PANTOPRAZOLE SODIUM IV 40 MG VIAL IV PUSH (09:21)
[2019-10-29] MEDS: ASPIRIN 325 MG TABLET FEED TUBE (09:21)
[2019-10-29] MEDS: THIAMINE HCL 100 MG TABLET PO (09:21)
[2019-10-29] MEDS: FOLIC ACID 1 MG TABLET PO (09:21)
[2019-10-29] MEDS: INSULIN GLARGINE (*BKC) 100 UNITS/ML 15 UNITS SUB-Q (09:37)
[2019-10-29] MEDS: TIMOLOL MALEATE 0.5% OP SOLN 5 ML BTL 1 DROP EACH EYE ×2 (09:54→21:02)
--- NOTE | 2019-10-29 11:27 | PCDIET ---
ICU Rounding Note: Patient currently NPO on high flow oxygen. MD ordering swallow evaluation today. Will recommend resuming tube feedings if unable to safely advance oral diet. Last recorded weight is 100.6kg which is stable. Bowel Motility: BM x 3 on 10/28/19. Labs Reviewed: Hgb (8.4), Hct (26.5), Glu (120), Na (135), K (3.0), Alb (3.4) Meds Noted: Aztreonam, Precedex, Atrovent, Xopenex, Thiamine, Vancomycin, Folic Acid, Lasix, Novolog, Lantus, MVI, Protonix, Miralax, KCl Additional Notes: Abdomen with drains; buttock wound with Mepilex, per nursing. Following daily in ICU rounds. Assessing/reassessing every Saturday/Saturday.
[2019-10-29 11:53] LABS: Glucose Point of Care 120 (65-105)
--- NOTE | 2019-10-29 12:08 | WPDINTPN ---
Progress Note: A&P Assessment and Plan (1) Acute respiratory failure: Qualifiers: Respiratory failure complication: hypoxia Qualified Code(s): J96.01 - Acute respiratory failure with hypoxia Code(s): J96.00 - Acute respiratory failure, unspecified whether with hypoxia or hypercapnia Status: Acute Assessment and Plan: Patient seen in the IMU was found to be in impending respiratory failure with gurgling respirations and chest congestion. Discussed with spouse with Dinorah, who was agreeable for intubation. -patient was successfully intubated in the ICU on 10/15/2019 - 10/17 -extubated after successful weaning trial but after few hours had difficulty clearing secretions and hypoxia. Patient was placed on non-rebreather mass and suction frequently as he was still awake and following commands to try to avoid re-intubation. 10/18 worsening respiratory distress with worsening hypoxia, tachycardic tachypneic, rattling secretions in his upper airway. Reintubated with difficulty with significant swelling of the hypopharynx and around the vocal cords. Requiring assistance from anesthesia -Pulmonary consulted and bronchoscopy was done. Culture sent and negative as of now -chest x-ray and ABGs reviewed, chest x-ray continues to shows bilateral infiltrates -placed patient on ASV mode of ventilation, tolerating well, if patient tires out will place him back on CMV mode of ventilation. Patient has a good air leak when I deflated the ETT balloon -last sputum cultures have been obtained and yeast which is likely a colonizer -patient is on Pulmozyme for thick secretions -patient is overall volume overloaded and continue Lasix with albumin - CT scan of the neck on 10/26/2019 and soft tissue showed mild emphysema, the pharynx and larynx are remarkable, small pleural effusion, right thyroid nodule, dental disease - patient extubated successfully on 10/27/2019 - patient probably aspirated and had been placed on BiPAP and now is on high-flow oxygen therapy. - Speech to evaluate for swallow test - patient unable to clear his secretions due to weak cough, will discuss with the patient and his regarding re-intubation. he may benefit from tracheostomy (2) Afib: Qualifiers: Atrial fibrillation type: unspecified Qualified Code(s): I48.91 - Unspecified atrial fibrillation Code(s): I48.91 - Unspecified atrial fibrillation Status: Acute Assessment and Plan: patient in AFib RVR with rates in the 120s to 130s, given metoprolol IV scheduled with no improvement. patient was started on IV Cardizem infusion improvement in rate controlled - cardiology following the patient and start patient on p.o. Cardizem - maintain heart rates between 90-110 (3) Pneumonia: Qualifiers: Pneumonia type: aspiration pneumonia Aspiration pneumonia type: unspecified Laterality: bilateral Lung location: unspecified part of lung Qualified Code(s): J69.0 - Pneumonitis due to inhalation of food and vomit Code(s): J18.9 - Pneumonia, unspecified organism Status: Acute Assessment and Plan: patient possibly with aspiration pneumonia - started patient on vancomycin and aztreonam on 10/27 - D/w ID, agrees with above abx - CXR reviewed (4) COPD (chronic obstructive pulmonary disease): Qualifiers: COPD type: unspecified COPD Qualified Code(s): J44.9 - Chronic obstructive pulmonary disease, unspecified Code(s): J44.9 - Chronic obstructive pulmonary disease, unspecified Status: Chronic Assessment and Plan: patient required BiPAP post extubation, ABG showed mild hypercapnia which resolved with BiPAP - continue high-flow nasal cannula and intermittent BiPAP as needed (5) Gallbladder abscess: Code(s): K81.0 - Acute cholecystitis Status: Acute Assessment and Plan: Surgery service managing Abscess culture growing ESBL E coli, infectious disease following the
--- NOTE | 2019-10-29 12:46 | PM.PNPUL ---
Progress Note: A&P Assessment and Plan (1) Respiratory failure: Qualifiers: Chronicity: acute Respiratory failure complication: hypoxia Qualified Code(s): J96.01 - Acute respiratory failure with hypoxia Code(s): J96.90 - Respiratory failure, unspecified, unspecified whether with hypoxia or hypercapnia Status: Acute Assessment and Plan: Recurrent Aspiration Pneumonia/Pneumonitis with difficulty clearing, coughing secretions. - would consider trach and PEG preemptively as he is high risk for recurrent intubation - consider ENT consult for upper endoscopy to look at vocal cords - avoid sedatives and narcotics - avoid over diuresis - chest PT may be temporarily helpful Subjective Date/time seen: 10/29/19 12:46 Interval history: Worsening RLL/RML infiltrate with possible effusion/atelectesis likely due to recurrent aspiration, unable clear/cough secretions. Review of Systems Review of Systems: All systems reviewed & are unremarkable except as noted in HPI and below Exam Narrative: Exam Narrative: exutbated and looks comfotable, slightly confused Const: General: comfortable and no acute distress Neck: Neck: no JVD Resp: Auscultation: crackles and diminished lung sounds Other: very poor and weak cough Cardio: Rate: regular rate Rhythm: regular rhythm Heart sounds: no murmurs GI: Inspection: distended Auscultation: normal bowel sounds Neuro: Cognition (Neuro): abnormal cognition Speech: No normal speech (dysphonia and dysphagia ) Other: A bit confused, possibly impaired hearing Objective Data Vital Signs Vital Signs: Vital Signs - 24 hr 10/28/19 14:00 10/28/19 14:12 10/28/19 14:38 Temperature Pulse Rate 133 H 128 H 129 H Respiratory Rate 24 H 25 H Blood Pressure 141/101 H Pulse Oximetry 99 100 10/28/19 14:50 10/28/19 16:00 10/28/19 16:18 Temperature 36.3 C L Pulse Rate 125 H 128 H 127 H Respiratory Rate 25 H 30 H Blood Pressure 136/87 Pulse Oximetry 98 10/28/19 16:30 10/28/19 18:00 10/28/19 20:00 Temperature 36.8 C Pulse Rate 128 H 111 H 108 H Respiratory Rate 25 H 25 H 25 H Blood Pressure 128/82 128/73 Pulse Oximetry 93 100 100 10/28/19 20:48 10/28/19 20:49 10/28/19 20:55 Temperature Pulse Rate 120 H 109 H 115 H Respiratory Rate 20 28 H 27 H Blood Pressure Pulse Oximetry 99 10/28/19 21:04 10/28/19 21:08 10/28/19 22:00 Temperature Pulse Rate 118 H 118 H 108 H Respiratory Rate 20 Blood Pressure 138/100 H Pulse Oximetry 98 10/29/19 00:00 10/29/19 00:53 10/29/19 00:59 Temperature 36.9 C Pulse Rate 117 H 112 H 103 H Respiratory Rate 25 H 24 H 20 Blood Pressure 136/109 H Pulse Oximetry 95 96 10/29/19 01:00 10/29/19 01:13 10/29/19 01:47 Temperature Pulse Rate 108 H 84 79 Respiratory Rate 20 24 H Blood Pressure Pulse Oximetry 10/29/19 01:50 10/29/19 01:58 10/29/19 02:00 Temperature Pulse Rate 79 90 Respiratory Rate 21 H 23 H Blood Pressure 97/82 L Pulse Oximetry 98 99 10/29/19 03:53 10/29/19 04:00 10/29/19 04:05 Temperature 36.9 C Pulse Rate 91 85 89 Respiratory Rate 23 H 20 Blood Pressure 91/77 L Pulse Oximetry 100 98 10/29/19 04:07 10/29/19 06:00 10/29/19 07:00 Temperature Pulse Rate 89 95 107 H Respiratory Rate 22 H 24 H Blood Pressure 111/80 Pulse Oximetry 99 10/29/19 08:00 10/29/19 08:39 10/29/19 08:49 Temperature 37.1 C Pulse Rate 102 H 91 99 Respiratory Rate 21 H 18 18 Blood Pressure 92/65 L Pulse Oximetry 100 100 10/29/19 09:09 10/29/19 09:31 10/29/19 10:00 Temperature Pulse Rate 99 100 98 Respiratory Rate 18 18 20 Blood Pressure 101/74 Pulse Oximetry 99 97 99 10/29/19 10:54 10/29/19 12:00 10/29/19 12:03 Temperature 36.4 C Pulse Rate 99 110 H 113 H Respiratory Rate 18 24 H Blood Pressure 94/67 L Pulse Oximetry 98 96 10/29/19 12:16 Temperature Pulse Rate 105 H Respiratory Rate 19 Bl
--- NOTE | 2019-10-29 12:59 | PCSTNOTE ---
Please refer to the Bedside Swallow Evaluation in the EMR. Please note, silent aspiration cannot be ruled out at bedside.
--- NOTE | 2019-10-29 14:12 | WPDINFPN2 ---
Progress Note: A&P Assessment and Plan (1) Gallbladder abscess: Code(s): K81.0 - Acute cholecystitis Status: Acute Assessment and Plan: 1. Acute cholecystitis with abscess, MDRO isolated. [address] His infection is resolved by microbiology testing/exam/labs 2. Dysphagia. 3. Respiratory distress with lung infiltrates, possible ARDS due to #1. Repeat CXR noted. His wbc rapidly back to normal, but aspiration pneumonia remains possible 4. Yeast in sputum, colonizer and not pathogenic in this patient REC off Imipenem 6 days (14 days Rx). Continue Aztreo/Vanc#2, for potential HCAP. Poor prognosis. For correlation, check procalcitonin, if normal I am inclined to stop antibiotics again. Subjective Date/time seen: 10/29/19 14:12 Interval history: awake, turns head to voice, non verbal Exam Narrative: Exam Narrative: afebrile Const: General: no acute distress Eyes: General: appearance normal, both eyes and all related structures Resp: Effort & Inspection: normal respiratory effort Auscultation: clear to auscultation bilaterally Cardio: Rate: regular rate Rhythm: regular rhythm Heart sounds: no murmurs GI: Inspection: non-distended GI Palp: Yes Soft to palpation, No Tenderness to palpation present (GI) and No Guarding due to palpation present (GI) Percussion: Yes normal to percussion Auscultation: normal bowel sounds Skin: General skin exam: normal color and no rashes or lesions noted Objective Data Vital Signs Vital Signs: Vital Signs - 24 hr 10/28/19 14:38 10/28/19 14:50 10/28/19 16:00 Temperature 36.3 C L Pulse Rate 129 H 125 H 128 H Respiratory Rate 25 H 25 H 30 H Blood Pressure 136/87 Pulse Oximetry 100 98 10/28/19 16:18 10/28/19 16:30 10/28/19 18:00 Temperature Pulse Rate 127 H 128 H 111 H Respiratory Rate 25 H 25 H Blood Pressure 128/82 Pulse Oximetry 93 100 10/28/19 20:00 10/28/19 20:48 10/28/19 20:49 Temperature 36.8 C Pulse Rate 108 H 120 H 109 H Respiratory Rate 25 H 20 28 H Blood Pressure 128/73 Pulse Oximetry 100 99 10/28/19 20:55 10/28/19 21:04 10/28/19 21:08 Temperature Pulse Rate 115 H 118 H 118 H Respiratory Rate 27 H Blood Pressure Pulse Oximetry 10/28/19 22:00 10/29/19 00:00 10/29/19 00:53 Temperature 36.9 C Pulse Rate 108 H 117 H 112 H Respiratory Rate 20 25 H 24 H Blood Pressure 138/100 H 136/109 H Pulse Oximetry 98 95 96 10/29/19 00:59 10/29/19 01:00 10/29/19 01:13 Temperature Pulse Rate 103 H 108 H 84 Respiratory Rate 20 20 Blood Pressure Pulse Oximetry 10/29/19 01:47 10/29/19 01:50 10/29/19 01:58 Temperature Pulse Rate 79 79 Respiratory Rate 24 H 21 H Blood Pressure Pulse Oximetry 98 10/29/19 02:00 10/29/19 03:53 10/29/19 04:00 Temperature 36.9 C Pulse Rate 90 91 85 Respiratory Rate 23 H 23 H 20 Blood Pressure 97/82 L 91/77 L Pulse Oximetry 99 100 98 10/29/19 04:05 10/29/19 04:07 10/29/19 06:00 Temperature Pulse Rate 89 89 95 Respiratory Rate 22 H Blood Pressure 111/80 Pulse Oximetry 99 10/29/19 07:00 10/29/19 08:00 10/29/19 08:39 Temperature 37.1 C Pulse Rate 107 H 102 H 91 Respiratory Rate 24 H 21 H 18 Blood Pressure 92/65 L Pulse Oximetry 96 100 10/29/19 08:49 10/29/19 09:09 10/29/19 09:31 Temperature Pulse Rate 99 99 100 Respiratory Rate 18 18 18 Blood Pressure Pulse Oximetry 99 97 10/29/19 10:00 10/29/19 10:54 10/29/19 12:00 Temperature 36.4 C Pulse Rate 98 99 98 Respiratory Rate 20 18 24 H Blood Pressure 101/74 94/67 L Pulse Oximetry 99 98 96 10/29/19 12:03 10/29/19 12:16 Temperature Pulse Rate 113 H 105 H Respiratory Rate 19 Blood Pressure Pulse Oximetry Intake/Output Intake/Output: Intake & Output 10/26/19 10/27/19 10/28/19 10/29/19 23:59 23:59 23:59 23:59 Intake Total 1100 2716 098 6842.01 Output Total 2200 1610 2390 450 Balance -1100 -89 -1509 1001.01 Meds/Resu
--- NOTE | 2019-10-29 15:13 | PCSTNOTE ---
Please refer to the Modified Barium Swallow Evaluation in the EMR.
[2019-10-29 18:12] LABS: Glucose Point of Care 127 (65-105)
[2019-10-29 22:42] LABS: Vancomycin Trough 15.6 ug/mL (10.0-20.0)
[2019-10-29 23:57] LABS: Glucose Point of Care 93 (65-105)
[2019-10-30] VITALS (31 sets, daily range): BP systolic 96–134; BP diastolic 66–105; PULSE 87–132; RESP 15–26; TEMP 36.3–37.2; O2SAT 95–100; BMI 10.0
[2019-10-30] MEDS: AZTREONAM 1 GM in DEXTROSE 5% IN WATER 50 ML IVPB ×3 (01:30→17:42)
[2019-10-30] MEDS: IPRATROPIUM BR 0.02% INH SOLN 0.5 MG/2.5 ML VIAL INHALATION ×4 (02:01→21:27)
[2019-10-30] MEDS: METOPROLOL TARTRATE INJ 5 MG/5 ML VIAL IV PUSH (03:48)
[2019-10-30 04:42] LABS: Hematocrit 24.7 % (42.0-52.0); Hemoglobin 7.9 g/dL (14.0-18.0); Mean Corpuscular Hemoglobin 31.1 pg (26-34); Mean Corpuscular Volume 97.2 fl (80-100); Mean Platelet Volume 10.1 fl (7.4-10.4); Platelet Count Result 153 k/mm3 (150-375); Red Blood Count 2.54 M/mm3 (4.6-6.20); Red Cell Distribution Width 16.7 % (11.5-14.5); White Blood Count 5.8 K/mm3 (4.5-10.0)
[2019-10-30 04:47] LABS: Alveolar/Arterial O2 Gradient 143.8 mmHg; Base Excess ABG 9.8 mEq/l (+/-2.0); Carboxyhemoglobin 0.3 % THb (0-2.0); Fractional Inspired Oxygen 40 %; HCO3 ABG 33.8 mEq/l (22.0-26.0); Methemoglobin ABG 0.4 %THb (0-1.5); Oxygen Content ABG 12.2 %vol (16.0-22.0); Oxygen Saturation ABG 97.6 % (95.0-100.0); Oxyhemoglobin 95.5 % THb (90.0-100.0); PCO2 ABG 43.2 mmHg (35.0-45.0); PO2 ABG 91.7 mmHg (80.0-100.0); PO2 FiO2 Ratio Arterial Blood 2.29 %; Reduced Hemoglobin 3.8 %THb (0-5.0)
[2019-10-30 04:51] LABS: Device NON-INVASIVE VENT; Modified Allen's Test Pass; Non-Invasive Expiratory Pressure 6 CMH2O; Non-Invasive Inspiratory Pressure 12 CMH2O; Non-Invasive Vent Rate 14 /MIN; Site Drawn LEFT RADIAL; pH ABG 7.511 (7.350-7.450)
[2019-10-30 05:00] LABS: Anion Gap 8.2 mmol/L (7-16); Blood Urea Nitrogen 17 mg/dL (9-20); Calcium 8.5 mg/dL (8.4-10.2); Carbon Dioxide 36 mmol/L (22-30); Chloride 94 mmol/L (98-107); Estimated CRCL calculation 119 ml/min; Estimated Glomerular Filt Rate > 60; Glucose 107 mg/dL (75-110); Phosphorus 3.2 mg/dL (2.5-4.5); Potassium 3.2 mmol/L (3.4-5.0); Sodium 135 mmol/L (137-145)
[2019-10-30] MEDS: CENTRAL LINE FLUSH 10 ML IV PUSH ×3 (05:02→21:27)
[2019-10-30] MEDS: DORNASE ALFA INH SOLN 1 MG/ML 2.5 ML AMP 2.5 MG INHALATION ×2 (07:42→21:27)
[2019-10-30] MEDS: INSULIN GLARGINE (*BKC) 100 UNITS/ML 15 UNITS SUB-Q (08:31)
[2019-10-30] MEDS: ASPIRIN 325 MG TABLET FEED TUBE (08:33)
[2019-10-30] MEDS: ENOXAPARIN 40 MG/0.4 ML SYRINGE SUB-Q (08:33)
[2019-10-30] MEDS: THIAMINE HCL 100 MG TABLET PO (08:33)
[2019-10-30] MEDS: MULTIVITAMINS THERAPEUTIC TAB (*BKC) 1 TABLET PO (08:34)
[2019-10-30] MEDS: FUROSEMIDE INJ 40 MG/4 ML VIAL IV PUSH (08:34)
[2019-10-30] MEDS: PANTOPRAZOLE SODIUM IV 40 MG VIAL IV PUSH (08:34)
[2019-10-30] MEDS: FOLIC ACID 1 MG TABLET PO (08:34)
[2019-10-30] MEDS: TIMOLOL MALEATE 0.5% OP SOLN 5 ML BTL 1 DROP EACH EYE ×2 (08:35→21:27)
--- NOTE | 2019-10-30 08:45 | WPDINTPN ---
Progress Note: A&P Assessment and Plan (1) Acute respiratory failure: Qualifiers: Respiratory failure complication: hypoxia Qualified Code(s): J96.01 - Acute respiratory failure with hypoxia Code(s): J96.00 - Acute respiratory failure, unspecified whether with hypoxia or hypercapnia Status: Acute Assessment and Plan: Patient seen in the IMU was found to be in impending respiratory failure with gurgling respirations and chest congestion. Discussed with spouse with Dinorah, who was agreeable for intubation. -patient was successfully intubated in the ICU on 10/15/2019 - 10/17 -extubated after successful weaning trial but after few hours had difficulty clearing secretions and hypoxia. Patient was placed on non-rebreather mass and suction frequently as he was still awake and following commands to try to avoid re-intubation. 10/18 worsening respiratory distress with worsening hypoxia, tachycardic tachypneic, rattling secretions in his upper airway. Reintubated with difficulty with significant swelling of the hypopharynx and around the vocal cords. Requiring assistance from anesthesia -Pulmonary consulted and bronchoscopy was done. Culture sent and negative as of now -chest x-ray and ABGs reviewed, chest x-ray continues to shows bilateral infiltrates -placed patient on ASV mode of ventilation, tolerating well, if patient tires out will place him back on CMV mode of ventilation. Patient has a good air leak when I deflated the ETT balloon -last sputum cultures have been obtained and yeast which is likely a colonizer -patient is on Pulmozyme for thick secretions -patient is overall volume overloaded and continue Lasix with albumin - CT scan of the neck on 10/26/2019 and soft tissue showed mild emphysema, the pharynx and larynx are remarkable, small pleural effusion, right thyroid nodule, dental disease - patient extubated successfully on 10/27/2019 - patient probably aspirated and had been placed on BiPAP and now is on high-flow oxygen therapy. - Speech to evaluate for swallow test - patient unable to clear his secretions due to weak cough, will discuss with the patient and his regarding re-intubation; he may benefit from tracheostomy if that occurs (2) Afib: Qualifiers: Atrial fibrillation type: unspecified Qualified Code(s): I48.91 - Unspecified atrial fibrillation Code(s): I48.91 - Unspecified atrial fibrillation Status: Acute Assessment and Plan: patient in AFib RVR with rates in the 120s to 130s, given metoprolol IV scheduled with no improvement. patient was started on IV Cardizem infusion improvement in rate controlled - cardiology following the patient and start patient on p.o. Cardizem - maintain heart rates between 90-110 (3) Pneumonia: Qualifiers: Aspiration pneumonia type: unspecified Laterality: bilateral Lung location: unspecified part of lung Pneumonia type: aspiration pneumonia Qualified Code(s): J69.0 - Pneumonitis due to inhalation of food and vomit Code(s): J18.9 - Pneumonia, unspecified organism Status: Acute Assessment and Plan: patient possibly with aspiration pneumonia - started patient on vancomycin and aztreonam on 10/27 - D/w ID, agrees with above abx - CXR reviewed (4) COPD (chronic obstructive pulmonary disease): Qualifiers: COPD type: unspecified COPD Qualified Code(s): J44.9 - Chronic obstructive pulmonary disease, unspecified Code(s): J44.9 - Chronic obstructive pulmonary disease, unspecified Status: Chronic Assessment and Plan: patient required BiPAP post extubation, ABG showed mild hypercapnia which resolved with BiPAP - continue high-flow nasal cannula and intermittent BiPAP as needed (5) Gallbladder abscess: Code(s): K81.0 - Acute cholecystitis Status: Acute Assessment and Plan: Surgery service managing Abscess culture growing ESBL E coli, infectious disease
--- NOTE | 2019-10-30 08:50 | PM.PNCARD ---
Progress Note: A&P Assessment and Plan (1) Afib: Qualifiers: Atrial fibrillation type: unspecified Qualified Code(s): I48.91 - Unspecified atrial fibrillation Code(s): I48.91 - Unspecified atrial fibrillation Status: Acute Assessment and Plan: Of unknown duration when first seen in July of this year. At that time he was difficult to control. Was on a significant dose of diltiazem along with carvedilol. Admitted with abdominal pain, acute cholecystitis and hepatic abcesses and elevated heart rates. Due to his mild LV dysfunction (EF 45-50% 07/27/2019) beta edmund is being used. Heart rates now controlled. continue p.o. metoprolol. Replace potassium Not a candidate for anticoagulation due to his alcohol abuse and reported falling. Continue aspirin 325 mg. Cardizem CD 240mg p.o.daily (2) Essential hypertension: Code(s): I10 - Essential (primary) hypertension Status: Chronic (3) COPD (chronic obstructive pulmonary disease): Qualifiers: COPD type: unspecified COPD Qualified Code(s): J44.9 - Chronic obstructive pulmonary disease, unspecified Code(s): J44.9 - Chronic obstructive pulmonary disease, unspecified Status: Chronic (4) Hypokalemia: Code(s): E87.6 - Hypokalemia Status: Acute Assessment and Plan: replace potassium 40 mEq p.o. x1 Subjective Date/time seen: 10/30/19 08:50 Interval history: 69-year-old man with history of chronic atrial fibrillation being managed with rate control. Principal reason for the patient's hospitalization is sepsis related to cholecystitis an intra-abdominal abscess which is being treated with percutaneous drainage and antibiotics. He was moved to the ICU several days ago because of respiratory failure requiring intubation. He is improving and potentially will be extubated later today or tomorrow. 10/19/2019: Continues to be in atrial fibrillation heart rate is somewhat rapid however is reasonable with his current dosage of much metoprolol. Heart rate is accelerating a little bit this morning as he is being weaned from sedation. Date of service 10/20/2019: Remains intubated, FiO2 is 30%. AFib with a controlled heart rate, 70-100. yesterday's low BP resolved, now mildly hypertensive. Infrequent PVCs, two 4 beat runs of V-tach. Started on Lasix and albumin by Dr. Parrish. Dr. Gonzales plans on placing a hepatic drain for abcess tmr. Spoke to at bedside. Date of service 10/27/2019: Still intubated sedated. AFib rate is well controlled. no Other changes Date of service 10/28/2019: Patient is now extubated. Does seem to be in some respiratory distress but feels better per patient. Heart rate is not quite fast and blood pressure is markedly elevated. No chest pain Date of service 10/29/2019: Resting comfortably in bed. Heart rate is controlled on diltiazem drip. No chest pain or shortness of breath Date of service 10/30/2019: Continues to feel better. No chest pain or shortness of breath Review of Systems Review of Systems: All systems reviewed & are unremarkable except as noted in HPI and below ROS unobtainable: Yes unobtainable due to endotracheal tube and unobtainable due to mental status Constitutional: Constitutional: Denies body ache(s) and Denies headache(s) Eyes: Eyes: Denies blurry vision ENT: Denies headache(s), Denies epistaxis and Denies neck pain Cardiovascular: Cardiovascular: Denies chest pain and Reports dyspnea Respiratory: Respiratory: Reports dyspnea Gastrointestinal: Gastrointestinal: Denies abdominal pain Genitourinary: Genitourinary: Denies hematuria Musculoskeletal: Musculoskeletal: Denies neck pain Integumentary/Breasts: Skin/Breast: Denies dry skin Neurologic: Denies headache(s) Psychiatric: Psychiatric: Denies anxiety Exam Const: General: comfortable and no acute distress HENMT: Mouth: Yes dry mucous membranes Eyes: Sclera: sclerae normal
--- NOTE | 2019-10-30 11:16 | PCDIET ---
Nutrition Follow-Up Complete: Nutrition Diagnosis: Inadequate oral intake related to multiple medical issues as evidenced by NPO diet, previous meal refusals on advanced diet. Nutrition Goal: Patient to meet estimated needs Goal in progress. Patient consuming 75-90% of meals on pureed, heart healthy diet with level 3 liquids. 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 Appetite good, per nursing. Patient on 3L nasal cannula. Last recorded weight is 101.1 kg which is up from last review. Bowel Motility: Last documented BM on 10/28/19 x 3. Labs Reviewed: Hgb (7.9), Hct (24.7), Na (135), K (3.2) Meds Noted:Miralax, Thiamine, Vancomycin, Aztreonam, Atrovent, Lasix, Folic Acid, Xopenex, MVI, Novolog, Lantus, Protonix, KCl Additional Notes: No change in skin reported. No new recommendations at this time. Will continue to monitor with same goal. Nutrition Monitoring and Evaluation: Follow up in 3 days.
[2019-10-30] MEDS: PHARMACIST COMMUNICATION ORDER 1 EACH XX (11:20)
[2019-10-30 12:11] LABS: Glucose Point of Care 92 (65-105)
[2019-10-30] MEDS: POTASSIUM CHLORIDE 20 MEQ PACKET (FOR LIQUID) 40 MEQ PO (12:13)
[2019-10-30] MEDS: METOPROLOL TARTRATE 50 MG TAB PO ×2 (12:31→21:27)
--- NOTE | 2019-10-30 13:56 | PM.PNPUL ---
Progress Note: A&P Assessment and Plan (1) Respiratory failure: Qualifiers: Chronicity: acute Respiratory failure complication: hypoxia Qualified Code(s): J96.01 - Acute respiratory failure with hypoxia Code(s): J96.90 - Respiratory failure, unspecified, unspecified whether with hypoxia or hypercapnia Status: Acute Assessment and Plan: (1) Respiratory failure: Assessment and Plan: Recurrent Aspiration Pneumonia/Pneumonitis with difficulty clearing, coughing secretions. - would consider trach and PEG preemptively as he is high risk for recurrent intubation - consider ENT consult for upper endoscopy to look at vocal cords - avoid sedatives and narcotics and anticholinergics - avoid over diuresis - chest PT may be temporarily helpful Time Spent With Patient Time with patient: 15 - 25 minutes Subjective Date/time seen: 10/30/19 13:56 Interval history: Doing slightly better today on nasal canulla. No acute respiratory distress. Less confused today. Still has weak cough. Some aspiration with thin liquids. Review of Systems Review of Systems: All systems reviewed & are unremarkable except as noted in HPI and below Exam Narrative: Exam Narrative: exutbated and looks comfotable, slightly confused Const: General: comfortable and no acute distress Neck: Neck: no JVD Resp: Auscultation: crackles and diminished lung sounds Other: very poor and weak cough Cardio: Rate: regular rate Rhythm: regular rhythm Heart sounds: no murmurs GI: Inspection: distended Auscultation: normal bowel sounds Neuro: Cognition (Neuro): abnormal cognition Speech: No normal speech (dysphonia and dysphagia ) Other: A bit confused, possibly impaired hearing Objective Data Vital Signs Vital Signs: Vital Signs - 24 hr 10/29/19 14:00 10/29/19 15:07 10/29/19 16:00 Temperature 36.3 C L Pulse Rate 95 101 H 104 H Respiratory Rate 17 18 17 Blood Pressure 96/71 L 92/71 L Pulse Oximetry 100 95 10/29/19 16:25 10/29/19 18:00 10/29/19 18:13 Temperature Pulse Rate 100 112 H 112 H Respiratory Rate 20 20 Blood Pressure 113/89 Pulse Oximetry 95 10/29/19 19:40 10/29/19 19:44 10/29/19 19:52 Temperature Pulse Rate 117 H 116 H 105 H Respiratory Rate 19 17 19 Blood Pressure Pulse Oximetry 100 10/29/19 19:56 10/29/19 20:00 10/29/19 21:02 Temperature 36.9 C Pulse Rate 114 H 118 H 101 H Respiratory Rate 19 19 Blood Pressure 104/85 Pulse Oximetry 100 99 10/29/19 22:00 10/29/19 22:05 10/30/19 00:00 Temperature 36.6 C Pulse Rate 103 H 104 H 91 Respiratory Rate 21 H 21 H 16 Blood Pressure 102/83 96/66 L Pulse Oximetry 100 100 100 10/30/19 01:35 10/30/19 01:58 10/30/19 02:00 Temperature Pulse Rate 91 97 91 Respiratory Rate 15 17 17 Blood Pressure 101/73 Pulse Oximetry 100 100 10/30/19 02:01 10/30/19 02:14 10/30/19 03:48 Temperature Pulse Rate 90 96 96 Respiratory Rate 17 17 Blood Pressure Pulse Oximetry 10/30/19 04:00 10/30/19 04:03 10/30/19 04:53 Temperature 37.2 C Pulse Rate 92 89 102 H Respiratory Rate 16 16 16 Blood Pressure 108/79 Pulse Oximetry 100 100 100 10/30/19 06:00 10/30/19 07:42 10/30/19 07:52 Temperature Pulse Rate 109 H 111 H 117 H Respiratory Rate 17 18 18 Blood Pressure 109/83 Pulse Oximetry 100 100 10/30/19 08:00 10/30/19 10:00 10/30/19 10:05 Temperature 36.9 C Pulse Rate 118 H 129 H 132 H Respiratory Rate 20 21 H 18 Blood Pressure 121/91 H 108/77 Pulse Oximetry 96 98 98 10/30/19 10:27 10/30/19 12:00 10/30/19 12:31 Temperature 36.9 C Pulse Rate 129 H 106 H 106 H Respiratory Rate 18 20 Blood Pressure 109/68 Pulse Oximetry 99 98 Intake/Output Intake/Output: Intake & Output 10/27/19 10/28/19 10/29/19 10/30/19 23:59 23:59 23:59 23:59 Intake Total 4593 454 9505.01 886 Output Total 1610 9090 8210 640 Balance -89 -1509 -517.99 246 Meds/Results Medications: A
--- NOTE | 2019-10-30 14:54 | WPDINFPN2 ---
Progress Note: A&P Assessment and Plan (1) Gallbladder abscess: Code(s): K81.0 - Acute cholecystitis Status: Acute Assessment and Plan: 1. Acute cholecystitis with abscess, MDRO isolated. [address] His infection is resolved by microbiology testing/exam/labs 2. Dysphagia. 3. Respiratory distress with lung infiltrates, possible ARDS due to #1. tracheobronchitis or aspiration pneumonia remains possible 4. Yeast in sputum, colonizer and not pathogenic in this patient REC off Imipenem 6 days (14 days Rx). Continue Aztreo/Vanc#3, for potential HCAP. Await procalcitonin level, stop Rx if normal. Subjective Date/time seen: 10/30/19 14:54 Interval history: cough, no dyspnea no CP. He is now alert and conversant Exam Narrative: Exam Narrative: afebrile Const: General: no acute distress Eyes: General: appearance normal, both eyes and all related structures Resp: Effort & Inspection: normal respiratory effort Auscultation: lung sounds not diminished Other: upper airway noise Cardio: Rate: regular rate Rhythm: regular rhythm GI: Inspection: non-distended GI Palp: Yes Soft to palpation, No Tenderness to palpation present (GI) and No Guarding due to palpation present (GI) Objective Data Vital Signs Vital Signs: Vital Signs - 24 hr 10/29/19 15:07 10/29/19 16:00 10/29/19 16:25 Temperature 36.3 C L Pulse Rate 101 H 104 H 100 Respiratory Rate 18 17 Blood Pressure 92/71 L Pulse Oximetry 95 10/29/19 18:00 10/29/19 18:13 10/29/19 19:40 Temperature Pulse Rate 112 H 112 H 117 H Respiratory Rate 20 20 19 Blood Pressure 113/89 Pulse Oximetry 95 100 10/29/19 19:44 10/29/19 19:52 10/29/19 19:56 Temperature Pulse Rate 116 H 105 H 114 H Respiratory Rate 17 19 19 Blood Pressure Pulse Oximetry 100 10/29/19 20:00 10/29/19 21:02 10/29/19 22:00 Temperature 36.9 C Pulse Rate 118 H 101 H 103 H Respiratory Rate 19 21 H Blood Pressure 104/85 102/83 Pulse Oximetry 99 100 10/29/19 22:05 10/30/19 00:00 10/30/19 01:35 Temperature 36.6 C Pulse Rate 104 H 91 91 Respiratory Rate 21 H 16 15 Blood Pressure 96/66 L Pulse Oximetry 100 100 10/30/19 01:58 10/30/19 02:00 10/30/19 02:01 Temperature Pulse Rate 97 91 90 Respiratory Rate 17 17 17 Blood Pressure 101/73 Pulse Oximetry 100 100 10/30/19 02:14 10/30/19 03:48 10/30/19 04:00 Temperature 37.2 C Pulse Rate 96 96 92 Respiratory Rate 17 16 Blood Pressure 108/79 Pulse Oximetry 100 10/30/19 04:03 10/30/19 04:53 10/30/19 06:00 Temperature Pulse Rate 89 102 H 109 H Respiratory Rate 16 16 17 Blood Pressure 109/83 Pulse Oximetry 100 100 100 10/30/19 07:42 10/30/19 07:52 10/30/19 08:00 Temperature 36.9 C Pulse Rate 111 H 117 H 118 H Respiratory Rate 18 18 20 Blood Pressure 121/91 H Pulse Oximetry 100 96 10/30/19 10:00 10/30/19 10:05 10/30/19 10:27 Temperature Pulse Rate 129 H 132 H 129 H Respiratory Rate 21 H 18 18 Blood Pressure 108/77 Pulse Oximetry 98 98 99 10/30/19 12:00 10/30/19 12:31 10/30/19 14:00 Temperature 36.9 C Pulse Rate 118 H 106 H 109 H Respiratory Rate 20 23 H Blood Pressure 109/68 119/105 H Pulse Oximetry 98 98 10/30/19 14:13 10/30/19 14:44 Temperature Pulse Rate 114 H 106 H Respiratory Rate 18 18 Blood Pressure Pulse Oximetry 96 96 Intake/Output Intake/Output: Intake & Output 10/27/19 10/28/19 10/29/19 10/30/19 23:59 23:59 23:59 23:59 Intake Total 0966 481 2516.01 1436 Output Total 4058 7820 9710 2267 [facility] -89 -1509 -517.99 -829 Meds/Results Medications: Active Medications Generic Name Dose Route Start Last Admin Trade Name Freq PRN Reason Stop Dose Admin Acetaminophen 650 mg 10/10/19 11:24 10/10/19 12:18 Tylenol Tablet PO 650 mg Q6H PRN Administration Mild Pain (1-3) or Fever Aspirin 325 mg 10/17/19 08:00 10/30/19 08:33 Aspirin FEED TUBE 325 mg DAILY@0800 [facility]
--- NOTE | 2019-10-30 16:46 | PM.IMPN ---
Progress Note: A&P Assessment and Plan (1) Gallbladder abscess: Code(s): K81.0 - Acute cholecystitis Status: Acute Assessment and Plan: Has three percutaneous drains in place. off imipenem now. MDRO isolated. Bc reordered yesterday. pt with liver abscess 10/30/19 16:46 this is to certify due to patient critical condition currently on vent patient been hospitalized for more than 20 days A drain was placed per Interventional Radiology. And surgery has been consulted. ecoli seen in his cultures. Patient is on impenem Add nitrofurantoin Patient is 69-year-old male with long history of alcohol abuse he presented emergency department with abdominal pain his found to have abscess along his gallbladder patient was seen by general surgery patient was not a candidate for surgical intervention at the present time and interventional radiologist placed a drain which is draining bile and what appears to be pleurant discharge, the abscess culture is growing E coli sensitive to imipenem similarly urine culture is growing E coli with ESBL sensitive to imipenem, is seen by Dr. clarke continue to imipenem, patient also has a history of atrial fibrillation now in RVR was started on Amio drip seen by machine puller and laster and switch him over to oral diltiazem rate is trending down, patient complains of abdominal pain denies any fever or chills. on 10/[address]-guided drainage of the gallbladder abscess, again patient had a ultrasound-guided drainage of abdominal wall abscess, patient is seen by Dr. clarke recommended to continue current management, on 10/13 patient was more congested and slightly short of breath chest x-ray showed pleural effusion a low-dose of IV Lasix 20 mg was given to help diurese and stop IV fluid, 10/14 went to see the patient he appeared more distress and impending respiratory failure, talked to the quarantine inspector who came and examined the patient patient was transfer to ICU and was intubated. Patient with hepatic abscess seen by surgery team being fed with a G-tube and tolerating, there is abscess drainage appears purulent, Patient being diuresed, Patient was seen by Dr. Clarke on 10/15 recommended to continue imipenum # 7 another 4 more days, 10/17 patient seen by quarantine inspector and was successfully extubated, patient was still quite somnolent but feels better and was doing well, on 10/18 patient was struggling and had difficulty with breathing and hypoxic, patient was intubated again it was not a difficult intubation, diarrhea patient was seen by Dr. Delacruz and had a bronchoscopy samples were collected for culture, currently patient is on vent and stable. patient remains intubated, seen by surgery abscess has resolved will remove the drain soon, seen by Dr. clarke patient has finished course of antibiotic no more antibiotics needed, patient will need CT scan of the neck prior to extubation, CT scan of the neck showed 1. Mild emphysema and right thyroid nodule. Consider thyroid ultrasound after resolution of acute disease for risk stratification. patient is on vent, off sedation in an attempt to wean the patient off ventilator. today patient was extubated he is still quite somnolent, stated feels better. (2) Respiratory failure: Qualifiers: Chronicity: acute Respiratory failure complication: hypoxia Qualified Code(s): J96.01 - Acute respiratory failure with hypoxia Code(s): J96.90 - Respiratory failure, unspecified, unspecified whether with hypoxia or hypercapnia Status: Acute Assessment and Plan: On mechanical ventilation. trying to wean off patient was extubated Possible ARDS. Hypoxemic resp failure. (3) Atrial fibrillation: Code(s): I48.91 - Unspecified atrial fibrillation Status: Acute Assessment and Plan: On metoprolol Not a candidate for AC. (4) CHF (congestive heart failure): Qualifiers: Heart failure type: systolic Heart failure chronicity: chroni
[2019-10-30 17:11] LABS: Glucose Point of Care 73 (65-105)
[2019-10-30 23:38] LABS: Glucose Point of Care 77 (65-105)
[2019-10-31] VITALS (31 sets, daily range): BP systolic 108–139; BP diastolic 75–119; PULSE 85–125; RESP 19–27; TEMP 36–37; O2SAT 94–100
[2019-10-31] MEDS: AZTREONAM 1 GM in DEXTROSE 5% IN WATER 50 ML IVPB ×3 (02:27→17:15)
[2019-10-31] MEDS: IPRATROPIUM BR 0.02% INH SOLN 0.5 MG/2.5 ML VIAL INHALATION ×4 (03:07→20:48)
[2019-10-31 04:15] LABS: Alveolar/Arterial O2 Gradient 119.9 mmHg; Base Excess ABG 13.2 mEq/l (+/-2.0); Carboxyhemoglobin 0.3 % THb (0-2.0); Fractional Inspired Oxygen 40 %; HCO3 ABG 38.2 mEq/l (22.0-26.0); Methemoglobin ABG 0.3 %THb (0-1.5); Oxygen Content ABG 13.1 %vol (16.0-22.0); Oxygen Saturation ABG 98.1 % (95.0-100.0); Oxyhemoglobin 96.4 % THb (90.0-100.0); PCO2 ABG 51.9 mmHg (35.0-45.0); PO2 ABG 105.6 mmHg (80.0-100.0); PO2 FiO2 Ratio Arterial Blood 2.64 %; Total Hemoglobin 9.5 g/dL (12.0-18.0); pH ABG 7.485 (7.350-7.450)
[2019-10-31 04:17] LABS: Device NON-INVASIVE VENT; Modified Allen's Test Pass; Site Drawn RIGHT RADIAL
[2019-10-31 04:18] LABS: Non-Invasive Expiratory Pressure 6 CMH2O; Non-Invasive Inspiratory Pressure 12 CMH2O; Non-Invasive Vent Rate 14 /MIN
[2019-10-31] MEDS: CENTRAL LINE FLUSH 10 ML IV PUSH ×3 (05:09→21:06)
[2019-10-31 05:18] LABS: Glucose Point of Care 72 (65-105)
[2019-10-31 05:22] LABS: Hematocrit 26.4 % (42.0-52.0); Hemoglobin 8.4 g/dL (14.0-18.0); Mean Corpuscular HGB Conc 31.8 g/dl (32-36); Mean Corpuscular Hemoglobin 31.2 pg (26-34); Mean Corpuscular Volume 98.1 fl (80-100); Mean Platelet Volume 10.5 fl (7.4-10.4); Platelet Count Result 231 k/mm3 (150-375); Red Blood Count 2.69 M/mm3 (4.6-6.20); Red Cell Distribution Width 16.9 % (11.5-14.5); White Blood Count 8.3 K/mm3 (4.5-10.0)
[2019-10-31 05:32] LABS: Anion Gap 5.3 mmol/L (7-16); Blood Urea Nitrogen 17 mg/dL (9-20); Calcium 8.6 mg/dL (8.4-10.2); Carbon Dioxide 37 mmol/L (22-30); Chloride 94 mmol/L (98-107); Estimated CRCL calculation 137 ml/min; Estimated Glomerular Filt Rate > 60; Glucose 66 mg/dL (75-110); Phosphorus 3.2 mg/dL (2.5-4.5); Potassium 3.3 mmol/L (3.4-5.0); Sodium 133 mmol/L (137-145)
--- NOTE | 2019-10-31 07:46 | PM.PNPUL ---
Progress Note: A&P Assessment and Plan (1) Respiratory failure: Qualifiers: Chronicity: acute Respiratory failure complication: hypoxia Qualified Code(s): J96.01 - Acute respiratory failure with hypoxia Code(s): J96.90 - Respiratory failure, unspecified, unspecified whether with hypoxia or hypercapnia Status: Acute Assessment and Plan: (1) Respiratory failure: Assessment and Plan: Recurrent Aspiration Pneumonia/Pneumonitis with difficulty clearing, coughing secretions. - would consider trach and PEG preemptively as he is high risk for recurrent intubation - consider ENT consult for upper endoscopy to look at vocal cords - avoid sedatives and narcotics and anticholinergics - avoid over diuresis, bicarb is climbind and he has signs of contraction alkalosis - chest PT may be temporarily helpful Time Spent With Patient Time with patient: 15 - 25 minutes Subjective Date/time seen: 10/31/19 07:46 Interval history: Pt states he feels confused this morning, doesn't know where he's at. Phonation is improving but still weak. Cough is still weak. CXR showing persistent interstitial infiltrates with left retrocardiac dense consolidation Review of Systems Review of Systems: All systems reviewed & are unremarkable except as noted in HPI and below Exam Narrative: Exam Narrative: exutbated and looks comfotable, slightly confused Const: General: comfortable and no acute distress Neck: Neck: no JVD Resp: Auscultation: crackles and diminished lung sounds Other: very poor and weak cough Cardio: Rate: regular rate Rhythm: regular rhythm Heart sounds: no murmurs GI: Inspection: distended Auscultation: normal bowel sounds Neuro: Cognition (Neuro): abnormal cognition Speech: No normal speech (dysphonia and dysphagia ) Other: A bit confused, possibly impaired hearing Objective Data Vital Signs Vital Signs: Vital Signs - 24 hr 10/30/19 07:52 10/30/19 08:00 10/30/19 10:00 Temperature 36.9 C Pulse Rate 117 H 118 H 129 H Respiratory Rate 18 20 21 H Blood Pressure 121/91 H 108/77 Pulse Oximetry 96 98 10/30/19 10:05 10/30/19 10:27 10/30/19 12:00 Temperature 36.9 C Pulse Rate 132 H 129 H 118 H Respiratory Rate 18 18 20 Blood Pressure 109/68 Pulse Oximetry 98 99 98 10/30/19 12:31 10/30/19 14:00 10/30/19 14:13 Temperature Pulse Rate 106 H 109 H 114 H Respiratory Rate 23 H 18 Blood Pressure 119/105 H Pulse Oximetry 98 96 10/30/19 14:44 10/30/19 16:00 10/30/19 19:52 Temperature 37.1 C 36.3 C L Pulse Rate 106 H 87 109 H Respiratory Rate 18 20 19 Blood Pressure 117/82 134/79 Pulse Oximetry 96 96 98 10/30/19 20:00 10/30/19 21:27 10/30/19 21:28 Temperature Pulse Rate 110 H 116 H 125 H Respiratory Rate 24 H Blood Pressure Pulse Oximetry 10/30/19 21:33 10/30/19 21:37 10/30/19 22:00 Temperature Pulse Rate 125 H 119 H 123 H Respiratory Rate 24 H 22 H 19 Blood Pressure 122/86 Pulse Oximetry 95 96 10/30/19 22:35 10/31/19 00:00 10/31/19 01:12 Temperature 36.4 C L Pulse Rate 107 H 103 H 95 Respiratory Rate 26 H 20 23 H Blood Pressure 122/75 Pulse Oximetry 100 95 100 10/31/19 01:54 10/31/19 03:07 10/31/19 03:12 Temperature Pulse Rate 92 94 100 Respiratory Rate 22 H 22 H 23 H Blood Pressure 134/88 Pulse Oximetry 100 10/31/19 04:00 10/31/19 04:16 10/31/19 06:00 Temperature Pulse Rate 108 H 94 109 H Respiratory Rate 24 H 27 H 21 H Blood Pressure 116/81 130/84 Pulse Oximetry 100 100 100 Intake/Output Intake/Output: Intake & Output 10/28/19 10/29/19 10/30/19 10/31/19 23:59 23:59 23:59 23:59 Intake Total 881 2132.01 1751 650 Output Total 2390 2650 2490 325 [facility] -1509 -517.99 -739 325 Meds/Results Medications: Active Medications Generic Name Dose Route Start Last Admin Trade Name Freq PRN Reason Stop Dose Admin Acetaminophen 650 mg 10/10/19 11:24 10/10/19 12:18 Tylenol Tablet
[2019-10-31 08:54] LABS: Glucose Point of Care 76 (65-105)
[2019-10-31] MEDS: ENOXAPARIN 40 MG/0.4 ML SYRINGE SUB-Q (09:06)
[2019-10-31] MEDS: ASPIRIN 325 MG TABLET FEED TUBE (09:06)
[2019-10-31] MEDS: TIMOLOL MALEATE 0.5% OP SOLN 5 ML BTL 1 DROP EACH EYE ×2 (09:06→20:56)
[2019-10-31] MEDS: MULTIVITAMINS THERAPEUTIC TAB (*BKC) 1 TABLET PO (09:06)
[2019-10-31] MEDS: PANTOPRAZOLE SODIUM IV 40 MG VIAL IV PUSH (09:06)
[2019-10-31] MEDS: THIAMINE HCL 100 MG TABLET PO (09:07)
[2019-10-31] MEDS: FOLIC ACID 1 MG TABLET PO (09:07)
[2019-10-31] MEDS: polyethylene glycoL 3350 17 GM POWD.PACK PO (09:10)
[2019-10-31] MEDS: METOPROLOL TARTRATE 50 MG TAB PO ×2 (09:17→11:03)
[2019-10-31] MEDS: DORNASE ALFA INH SOLN 1 MG/ML 2.5 ML AMP 2.5 MG INHALATION ×2 (09:24→20:49)
--- NOTE | 2019-10-31 09:51 | WPDINTPN ---
Progress Note: A&P Assessment and Plan (1) Acute respiratory failure: Qualifiers: Respiratory failure complication: hypoxia Qualified Code(s): J96.01 - Acute respiratory failure with hypoxia Code(s): J96.00 - Acute respiratory failure, unspecified whether with hypoxia or hypercapnia Status: Acute Assessment and Plan: Patient seen in the IMU was found to be in impending respiratory failure with gurgling respirations and chest congestion. Discussed with spouse with Dinorah, who was agreeable for intubation. -patient was successfully intubated in the ICU on 10/15/2019 - 10/17 -extubated after successful weaning trial but after few hours had difficulty clearing secretions and hypoxia. Patient was placed on non-rebreather mass and suction frequently as he was still awake and following commands to try to avoid re-intubation. 10/18 worsening respiratory distress with worsening hypoxia, tachycardic tachypneic, rattling secretions in his upper airway. Reintubated with difficulty with significant swelling of the hypopharynx and around the vocal cords. Requiring assistance from anesthesia -Pulmonary consulted and bronchoscopy was done. Culture sent and negative as of now -chest x-ray and ABGs reviewed, chest x-ray continues to shows bilateral infiltrates -placed patient on ASV mode of ventilation, tolerating well, if patient tires out will place him back on CMV mode of ventilation. Patient has a good air leak when I deflated the ETT balloon -last sputum cultures have been obtained and yeast which is likely a colonizer -patient is on Pulmozyme for thick secretions -patient is overall volume overloaded and continue Lasix with albumin - CT scan of the neck on 10/26/2019 and soft tissue showed mild emphysema, the pharynx and larynx are remarkable, small pleural effusion, right thyroid nodule, dental disease - patient extubated successfully on 10/27/2019 - patient probably aspirated and had been placed on BiPAP and now is on high-flow oxygen therapy. - Speech to evaluate for swallow test (2) Afib: Qualifiers: Atrial fibrillation type: unspecified Qualified Code(s): I48.91 - Unspecified atrial fibrillation Code(s): I48.91 - Unspecified atrial fibrillation Status: Acute Assessment and Plan: Continue PO Cardizem and metoprolol. (3) Pneumonia: Qualifiers: Aspiration pneumonia type: unspecified Laterality: bilateral Lung location: unspecified part of lung Pneumonia type: aspiration pneumonia Qualified Code(s): J69.0 - Pneumonitis due to inhalation of food and vomit Code(s): J18.9 - Pneumonia, unspecified organism Status: Acute Assessment and Plan: patient possibly with aspiration pneumonia - started patient on vancomycin and aztreonam on 10/27 - D/w ID, agrees with above abx - CXR reviewed (4) COPD (chronic obstructive pulmonary disease): Qualifiers: COPD type: unspecified COPD Qualified Code(s): J44.9 - Chronic obstructive pulmonary disease, unspecified Code(s): J44.9 - Chronic obstructive pulmonary disease, unspecified Status: Chronic Assessment and Plan: patient required BiPAP post extubation, ABG showed mild hypercapnia which resolved with BiPAP - continue high-flow nasal cannula and intermittent BiPAP as needed (5) Gallbladder abscess: Code(s): K81.0 - Acute cholecystitis Status: Acute Assessment and Plan: Surgery service managing Abscess culture growing ESBL E coli, infectious disease following the patient, patient is on Primaxin CT A/P 10/18 IMPRESSION: 1. Moderate volume of ascites with areas of peritoneal thickening and enhancement in left paracolic gutter and in the pelvis, likely an exudate. 2. Rim-enhancing fluid collection at the undersurface of right hepatic lobe, consistent with abscess. 3. Pigtail drains in the gallbladder fossa and anteroinferior to the liver. No residual fluid in these locations
--- NOTE | 2019-10-31 10:53 | PM.PNCARD ---
Progress Note: A&P Assessment and Plan (1) Afib: Qualifiers: Atrial fibrillation type: unspecified Qualified Code(s): I48.91 - Unspecified atrial fibrillation Code(s): I48.91 - Unspecified atrial fibrillation Status: Acute Assessment and Plan: Heart rate remains suboptimally controlled. Increase metoprolol to 100 mg twice daily. Continue Diltiazem although like to try and avoid given LV dysfunction heart rates have been difficult to manage. Continue to monitor and replete potassium. Of unknown duration when first seen in July of this year. At that time he was difficult to control. Was on a significant dose of diltiazem along with carvedilol. Admitted with abdominal pain, acute cholecystitis and hepatic abcesses and elevated heart rates. Due to his mild LV dysfunction (EF 45-50% 07/27/2019) beta edmund is being used. Not a candidate for anticoagulation due to his alcohol abuse and reported falling. Continue aspirin 325 mg. Cardizem CD 240mg p.o.daily (2) Essential hypertension: Code(s): I10 - Essential (primary) hypertension Status: Chronic (3) COPD (chronic obstructive pulmonary disease): Qualifiers: COPD type: unspecified COPD Qualified Code(s): J44.9 - Chronic obstructive pulmonary disease, unspecified Code(s): J44.9 - Chronic obstructive pulmonary disease, unspecified Status: Chronic (4) Hypokalemia: Code(s): E87.6 - Hypokalemia Status: Acute Assessment and Plan: replace potassium 40 mEq p.o. x1 Once again. Continue to monitor closely. Subjective Date/time seen: date of service:10/31/19 10:53 Interval history: 69-year-old man with history of chronic atrial fibrillation being managed with rate control. Principal reason for the patient's hospitalization is sepsis related to cholecystitis an intra-abdominal abscess which is being treated with percutaneous drainage and antibiotics. He was moved to the ICU several days ago because of respiratory failure requiring intubation. He is improving and potentially will be extubated later today or tomorrow. 10/19/2019: Continues to be in atrial fibrillation heart rate is somewhat rapid however is reasonable with his current dosage of much metoprolol. Heart rate is accelerating a little bit this morning as he is being weaned from sedation. Date of service 10/20/2019: Remains intubated, FiO2 is 30%. AFib with a controlled heart rate, 70-100. yesterday's low BP resolved, now mildly hypertensive. Infrequent PVCs, two 4 beat runs of V-tach. Started on Lasix and albumin by Dr. Parrish. Dr. Gonzales plans on placing a hepatic drain for abcess tmr. Spoke to at bedside. Date of service 10/27/2019: Still intubated sedated. AFib rate is well controlled. no Other changes Date of service 10/28/2019: Patient is now extubated. Does seem to be in some respiratory distress but feels better per patient. Heart rate is not quite fast and blood pressure is markedly elevated. No chest pain Date of service 10/29/2019: Resting comfortably in bed. Heart rate is controlled on diltiazem drip. No chest pain or shortness of breath Date of service 10/30/2019: Continues to feel better. No chest pain or shortness of breath Date of service: 10/31/2019 today, patient states he feels okay. Denies chest pain, palpitations or shortness of breath. Patient remains in atrial fibrillation with rapid ventricular response heart rate 120 to 130s. BP stable, tolerating medications. Denies pain at this time. Review of Systems Review of Systems: All systems reviewed & are unremarkable except as noted in HPI and below ROS unobtainable: Yes unobtainable due to endotracheal tube and unobtainable due to mental status Constitutional: Constitutional: Denies body ache(s) and Denies headache(s) Eyes: Eyes: Denies blurry vision ENT: Denies headache(s), Denies epistaxis and Denies neck pain Cardiovascular: C
--- NOTE | 2019-10-31 11:49 | PC.NURSE ---
This patient, Lloyd Redman, was received from ICU-7 into [facility] on 10/31/19 at 1150. Personal belongings list checked and signed. Patient/family oriented to unit policies and routines
--- NOTE | 2019-10-31 11:55 | PC.NURSE ---
This patient, Lloyd Redman, was transferred to [facility] on 10/31/19 at 1148 via bed. Personal belongings sent with patient. Belongings list checked and signed with receiving. Report given to GAURAV Boone. Appropriate documentation sent with patient.
[2019-10-31 12:50] LABS: Glucose Point of Care 167 (65-105)
--- NOTE | 2019-10-31 13:15 | PC.NURSE ---
Patient's updated on transfer.
--- NOTE | 2019-10-31 17:45 | PM.IMPN ---
Progress Note: A&P Assessment and Plan (1) Gallbladder abscess: Code(s): K81.0 - Acute cholecystitis Status: Acute Assessment and Plan: Has three percutaneous drains in place. off imipenem now. MDRO isolated. Bc reordered yesterday. pt with liver abscess 10/31/19 17:45 this is to certify due to patient critical condition currently on vent patient been hospitalized for more than 20 days A drain was placed per Interventional Radiology. And surgery has been consulted. ecoli seen in his cultures. Patient is on impenem Add nitrofurantoin Patient is 69-year-old male with long history of alcohol abuse he presented emergency department with abdominal pain his found to have abscess along his gallbladder patient was seen by general surgery patient was not a candidate for surgical intervention at the present time and interventional radiologist placed a drain which is draining bile and what appears to be pleurant discharge, the abscess culture is growing E coli sensitive to imipenem similarly urine culture is growing E coli with ESBL sensitive to imipenem, is seen by Dr. clarke continue to imipenem, patient also has a history of atrial fibrillation now in RVR was started on Amio drip seen by tree warden and switch him over to oral diltiazem rate is trending down, patient complains of abdominal pain denies any fever or chills. on 10/[address]-guided drainage of the gallbladder abscess, again patient had a ultrasound-guided drainage of abdominal wall abscess, patient is seen by Dr. clarke recommended to continue current management, on 10/13 patient was more congested and slightly short of breath chest x-ray showed pleural effusion a low-dose of IV Lasix 20 mg was given to help diurese and stop IV fluid, 10/14 went to see the patient he appeared more distress and impending respiratory failure, talked to the plastic tool maker who came and examined the patient patient was transfer to ICU and was intubated. Patient with hepatic abscess seen by surgery team being fed with a G-tube and tolerating, there is abscess drainage appears purulent, Patient being diuresed, Patient was seen by Dr. Clarke on 10/15 recommended to continue imipenum # 7 another 4 more days, 10/17 patient seen by plastic tool maker and was successfully extubated, patient was still quite somnolent but feels better and was doing well, on 10/18 patient was struggling and had difficulty with breathing and hypoxic, patient was intubated again it was not a difficult intubation, diarrhea patient was seen by Dr. Delacruz and had a bronchoscopy samples were collected for culture, currently patient is on vent and stable. patient remains intubated, seen by surgery abscess has resolved will remove the drain soon, seen by Dr. clarke patient has finished course of antibiotic no more antibiotics needed, patient will need CT scan of the neck prior to extubation, CT scan of the neck showed 1. Mild emphysema and right thyroid nodule. Consider thyroid ultrasound after resolution of acute disease for risk stratification. patient is on vent, off sedation in an attempt to wean the patient off ventilator. on 10/29 patient was extubated, today patient was transferred out of ICU, he is still quite somnolent, stated feels better. 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 (2) Respiratory failure: Qualifiers: Chronicity: acute Respiratory failure complication: hypoxia Qualified Code(s): J96.01 - Acute respiratory failure with hypoxia Code(s): J96.90 - Respiratory failure, unspecified, unspecified whether with hypoxia or hypercapnia Status: Acute Assessment and Plan: On mechanical ventilation. trying to wean off patient was extubated Possible ARDS. Hypoxemic resp failure. (3) Atrial fibrillation: Code(s): I48.91 - Unspecified atrial fibrillation Status: Acute Assessment and Plan: On metoprolol Not a candidat
[2019-10-31 20:37] LABS: Glucose Point of Care 98 (65-105)
[2019-10-31] MEDS: METOPROLOL TARTRATE 50 MG TAB 100 MG PO (20:57)
[2019-10-31 23:56] LABS: Glucose Point of Care 88 (65-105)
[2019-11-01] VITALS (34 sets, daily range): BP systolic 105–144; BP diastolic 68–100; PULSE 58–115; RESP 18–25; TEMP 36.5–37.1; O2SAT 87–100
[2019-11-01] MEDS: AZTREONAM 1 GM in DEXTROSE 5% IN WATER 50 ML IVPB ×3 (01:30→17:48)
[2019-11-01] MEDS: IPRATROPIUM BR 0.02% INH SOLN 0.5 MG/2.5 ML VIAL INHALATION ×4 (02:16→20:06)
[2019-11-01] MEDS: CENTRAL LINE FLUSH 20 ML IV PUSH (06:11)
[2019-11-01] MEDS: CENTRAL LINE FLUSH 10 ML IV PUSH ×3 (06:11→20:20)
[2019-11-01 06:14] LABS: Glucose Point of Care 95 (65-105)
[2019-11-01 06:43] LABS: Hematocrit 26.8 % (42.0-52.0); Hemoglobin 8.7 g/dL (14.0-18.0); Mean Corpuscular HGB Conc 32.5 g/dl (32-36); Mean Corpuscular Hemoglobin 31.3 pg (26-34); Mean Corpuscular Volume 96.4 fl (80-100); Mean Platelet Volume 10.5 fl (7.4-10.4); Platelet Count Result 266 k/mm3 (150-375); Red Blood Count 2.78 M/mm3 (4.6-6.20); Red Cell Distribution Width 16.8 % (11.5-14.5)
[2019-11-01 07:00] LABS: Anion Gap 8.4 mmol/L (7-16); Blood Urea Nitrogen 15 mg/dL (9-20); Calcium 8.7 mg/dL (8.4-10.2); Carbon Dioxide 34 mmol/L (22-30); Chloride 95 mmol/L (98-107); Estimated CRCL calculation 141 ml/min; Estimated Glomerular Filt Rate > 60; Glucose 89 mg/dL (75-110); Magnesium 1.9 mg/dL (1.6-2.3); Phosphorus 3.4 mg/dL (2.5-4.5); Potassium 3.4 mmol/L (3.4-5.0); Sodium 134 mmol/L (137-145)
[2019-11-01] MEDS: DORNASE ALFA INH SOLN 1 MG/ML 2.5 ML AMP 2.5 MG INHALATION ×2 (09:15→20:06)
[2019-11-01] MEDS: THIAMINE HCL 100 MG TABLET PO (09:29)
[2019-11-01] MEDS: METOPROLOL TARTRATE 50 MG TAB 100 MG PO ×2 (09:29→20:19)
[2019-11-01] MEDS: ASPIRIN 325 MG TABLET FEED TUBE (09:30)
[2019-11-01] MEDS: MULTIVITAMINS THERAPEUTIC TAB (*BKC) 1 TABLET PO (09:30)
[2019-11-01] MEDS: ENOXAPARIN 40 MG/0.4 ML SYRINGE SUB-Q (09:30)
[2019-11-01] MEDS: PANTOPRAZOLE SODIUM IV 40 MG VIAL IV PUSH (09:30)
[2019-11-01] MEDS: FOLIC ACID 1 MG TABLET PO (09:30)
[2019-11-01] MEDS: polyethylene glycoL 3350 17 GM POWD.PACK PO (09:34)
[2019-11-01] MEDS: TIMOLOL MALEATE 0.5% OP SOLN 5 ML BTL 1 DROP EACH EYE ×2 (09:35→20:20)
[2019-11-01] MEDS: POTASSIUM CHLORIDE 20 MEQ TABLET 40 MEQ PO (10:18)
--- NOTE | 2019-11-01 11:08 | PCOTNOTE ---
Attempted to see patient this AM for skilled OT session. Patient was asked multiple times if he would like to participate in OT session, but patient shook head and stated, No, I don't need it. and I don't want to . Patient refused OT session this date.
[2019-11-01 11:49] LABS: Glucose Point of Care 149 (65-105)
[2019-11-01 13:00] LABS: Alveolar/Arterial O2 Gradient 113.8 mmHg; Base Excess ABG 7.1 mEq/l (+/-2.0); Fractional Inspired Oxygen 32 %; HCO3 ABG 32.1 mEq/l (22.0-26.0); Oxygen Content ABG 13.1 %vol (16.0-22.0); Oxygen Saturation ABG 91.4 % (95.0-100.0); Oxyhemoglobin 89.1 % THb (90.0-100.0); PCO2 ABG 47.4 mmHg (35.0-45.0); PO2 ABG 58.9 mmHg (80.0-100.0); PO2 FiO2 Ratio Arterial Blood 1.84 %; Total Hemoglobin 10.4 g/dL (12.0-18.0); pH ABG 7.448 (7.350-7.450)
--- NOTE | 2019-11-01 13:00 | PC.NURSE ---
This patient, Lloyd Redman, was transferred to ICU-6 on 11/01/19 at 1300. Personal belongings sent with patient. Belongings list checked and signed with receiving RN. Report given to GAURAV Azul. Appropriate documentation sent with patient.
[2019-11-01 13:01] LABS: Device NASAL CANNULA; Site Drawn LEFT BRACHIAL
--- NOTE | 2019-11-01 13:17 | PM.PNCARD ---
Progress Note: A&P Assessment and Plan (1) Afib: Qualifiers: Atrial fibrillation type: unspecified Qualified Code(s): I48.91 - Unspecified atrial fibrillation Code(s): I48.91 - Unspecified atrial fibrillation Status: Acute Assessment and Plan: Heart rate better controlled on Metoprolol 100 mg twice daily. Continue Diltiazem although like to try and avoid given LV dysfunction heart rates have been difficult to manage. Continue to monitor and replete potassium. Of unknown duration when first seen in July of this year. At that time he was difficult to control. Was on a significant dose of diltiazem along with carvedilol. Admitted with abdominal pain, acute cholecystitis and hepatic abcesses and elevated heart rates. Due to his mild LV dysfunction (EF 45-50% 07/27/2019) beta edmund is being used. Not a candidate for anticoagulation due to his alcohol abuse and reported falling. Continue aspirin 325 mg. Cardizem CD 240mg p.o.daily (2) Essential hypertension: Code(s): I10 - Essential (primary) hypertension Status: Chronic Assessment and Plan: stable (3) COPD (chronic obstructive pulmonary disease): Qualifiers: COPD type: unspecified COPD Qualified Code(s): J44.9 - Chronic obstructive pulmonary disease, unspecified Code(s): J44.9 - Chronic obstructive pulmonary disease, unspecified Status: Chronic Assessment and Plan: Repeat chest x-ray today given increased respiratory sounds, shortness of breath. (4) Hypokalemia: Code(s): E87.6 - Hypokalemia Status: Acute Assessment and Plan: monitor and replete given additional potassium 40 mEq p.o. x1 Continue to monitor closely. Subjective Date/time seen: date of service: 11/01/19 13:17 Interval history: 69-year-old man with history of chronic atrial fibrillation being managed with rate control. Principal reason for the patient's hospitalization is sepsis related to cholecystitis an intra-abdominal abscess which is being treated with percutaneous drainage and antibiotics. He was moved to the ICU several days ago because of respiratory failure requiring intubation. He is improving and potentially will be extubated later today or tomorrow. 10/19/2019: Continues to be in atrial fibrillation heart rate is somewhat rapid however is reasonable with his current dosage of much metoprolol. Heart rate is accelerating a little bit this morning as he is being weaned from sedation. Date of service 10/20/2019: Remains intubated, FiO2 is 30%. AFib with a controlled heart rate, 70-100. yesterday's low BP resolved, now mildly hypertensive. Infrequent PVCs, two 4 beat runs of V-tach. Started on Lasix and albumin by Dr. Parrish. Dr. Gonzales plans on placing a hepatic drain for abcess tmr. Spoke to at bedside. Date of service 10/27/2019: Still intubated sedated. AFib rate is well controlled. no Other changes Date of service 10/28/2019: Patient is now extubated. Does seem to be in some respiratory distress but feels better per patient. Heart rate is not quite fast and blood pressure is markedly elevated. No chest pain Date of service 10/29/2019: Resting comfortably in bed. Heart rate is controlled on diltiazem drip. No chest pain or shortness of breath Date of service 10/30/2019: Continues to feel better. No chest pain or shortness of breath Date of service: 10/31/2019 patient states he feels okay. Denies chest pain, palpitations or shortness of breath. Patient remains in atrial fibrillation with rapid ventricular response heart rate 120 to 130s. BP stable, tolerating medications. Denies pain at this time. Date of service: 11/01/2019 today, patient feeling a bit more short of breath, required additional suctioning, increased upper airway sounds, more short of breath overnight. Patient states he feels okay. No chest pain. Heart rate better controlled 90s 100 in atrial fi
--- NOTE | 2019-11-01 13:22 | WPDINTPN ---
Progress Note: A&P Assessment and Plan (1) Acute respiratory failure: Qualifiers: Respiratory failure complication: hypoxia Qualified Code(s): J96.01 - Acute respiratory failure with hypoxia Code(s): J96.00 - Acute respiratory failure, unspecified whether with hypoxia or hypercapnia Status: Acute Assessment and Plan: Due to pneumonia, acute CHF, and COPD. He was initially intubated in the ICU on 10/15/2019, then extubated on 10/17 but reintubated on 10/18 (difficult airway, required anesthesia) due to difficulty clearing secretions and with vocal cord edema. He was then extubated on 10/26. He was initially on HFNC but was weaned down to NC and transferred to floor on 10/30. Transferred back to ICU on 10/31 due to SOB. He has upper airway rhonchi and was nasotracheally suctioned in ICU with removal of large secretions. CXR showed pulmonary edema and he is almost 13L net positive. Will start Lasix gtt. Monitor overnight in ICU in case he requires reintubation. (2) Afib: Qualifiers: Atrial fibrillation type: unspecified Qualified Code(s): I48.91 - Unspecified atrial fibrillation Code(s): I48.91 - Unspecified atrial fibrillation Status: Acute Assessment and Plan: Continue PO Cardizem and metoprolol. (3) Pneumonia: Qualifiers: Aspiration pneumonia type: unspecified Laterality: bilateral Lung location: unspecified part of lung Pneumonia type: aspiration pneumonia Qualified Code(s): J69.0 - Pneumonitis due to inhalation of food and vomit Code(s): J18.9 - Pneumonia, unspecified organism Status: Acute Assessment and Plan: Patient possibly with aspiration pneumonia; started patient on vancomycin and aztreonam on 10/27. (4) COPD (chronic obstructive pulmonary disease): Qualifiers: COPD type: unspecified COPD Qualified Code(s): J44.9 - Chronic obstructive pulmonary disease, unspecified Code(s): J44.9 - Chronic obstructive pulmonary disease, unspecified Status: Chronic Assessment and Plan: Continue bronchodilators. (5) Gallbladder abscess: Code(s): K81.0 - Acute cholecystitis Status: Acute Assessment and Plan: Surgery service managing, s/p cholecystostomy tube. Abscess culture growing ESBL E coli.. 2 of the 3 right upper quadrant drains were removed on 10/26/2019 by surgery. (6) Chronic alcohol use: Code(s): Z72.89 - Other problems related to lifestyle Status: Chronic Assessment and Plan: Continue thiamine and folic acid. (7) CHF (congestive heart failure): Qualifiers: Heart failure chronicity: chronic Heart failure type: systolic Qualified Code(s): I50.22 - Chronic systolic (congestive) heart failure Code(s): I50.9 - Heart failure, unspecified Status: Chronic Assessment and Plan: Acute on chronic diastolic CHF; significantly fluid overloaded on CXR and by I/O. Start Lasix gtt. (8) GERD (gastroesophageal reflux disease): Qualifiers: Esophagitis presence: esophagitis presence not specified Qualified Code(s): K21.9 - Gastro-esophageal reflux disease without esophagitis Code(s): K21.9 - Gastro-esophageal reflux disease without esophagitis Status: Chronic Assessment and Plan: Continue IV protonix (9) Ileus: Code(s): K56.7 - Ileus, unspecified Status: Acute Assessment and Plan: Resolved. (10) Anasarca: Code(s): R60.1 - Generalized edema Status: Acute Assessment and Plan: Multifactorial. Continue Lasix as tolerated by blood pressure. (11) Hyperglycemia: Code(s): R73.9 - Hyperglycemia, unspecified Status: Acute Assessment and Plan: Continue Lantus and SSI. Additional Plan DVT prophylaxis -Lovenox Stress ulcer prophylaxis -Protonix Code Status - Full Code Critical care time spent: 39 minutes Due to a high probability of clinically significant, lif
--- NOTE | 2019-11-01 13:35 | PC.NURSE ---
RN orally deep suctioned patient and cleared secretions. Then placed patient on bipap for a nap. Will continue to monitor patient.
[2019-11-01] MEDS: FUROSEMIDE INJ 100 MG in SODIUM CHLORIDE 0.9% IV 90 ML 5.1 MG IV CONT (14:39)
[2019-11-01] MEDS: FUROSEMIDE INJ 40 MG/4 ML VIAL IV PUSH (14:39)
--- NOTE | 2019-11-01 14:59 | PCPTNOTE ---
The patient treatment was not able to be completed on 11/01/19 due to being transferred back to the ICU.
--- NOTE | 2019-11-01 16:33 | PM.IMPN ---
Progress Note: A&P Assessment and Plan (1) Gallbladder abscess: Code(s): K81.0 - Acute cholecystitis Status: Acute Assessment and Plan: Has three percutaneous drains in place. off imipenem now. MDRO isolated. Bc reordered yesterday. pt with liver abscess 11/01/19 16:33 this is to certify due to patient critical condition currently on vent patient been hospitalized for more than 20 days A drain was placed per Interventional Radiology. And surgery has been consulted. ecoli seen in his cultures. Patient is on impenem Add nitrofurantoin Patient is 69-year-old male with long history of alcohol abuse he presented emergency department with abdominal pain his found to have abscess along his gallbladder patient was seen by general surgery patient was not a candidate for surgical intervention at the present time and interventional radiologist placed a drain which is draining bile and what appears to be pleurant discharge, the abscess culture is growing E coli sensitive to imipenem similarly urine culture is growing E coli with ESBL sensitive to imipenem, is seen by Dr. clarke continue to imipenem, patient also has a history of atrial fibrillation now in RVR was started on Amio drip seen by cylinder dyer and switch him over to oral diltiazem rate is trending down, patient complains of abdominal pain denies any fever or chills. on 10/[address]-guided drainage of the gallbladder abscess, again patient had a ultrasound-guided drainage of abdominal wall abscess, patient is seen by Dr. clarke recommended to continue current management, on 10/13 patient was more congested and slightly short of breath chest x-ray showed pleural effusion a low-dose of IV Lasix 20 mg was given to help diurese and stop IV fluid, 10/14 went to see the patient he appeared more distress and impending respiratory failure, talked to the adding machine operator who came and examined the patient patient was transfer to ICU and was intubated. Patient with hepatic abscess seen by surgery team being fed with a G-tube and tolerating, there is abscess drainage appears purulent, Patient being diuresed, Patient was seen by Dr. Clarke on 10/15 recommended to continue imipenum # 7 another 4 more days, 10/17 patient seen by adding machine operator and was successfully extubated, patient was still quite somnolent but feels better and was doing well, on 10/18 patient was struggling and had difficulty with breathing and hypoxic, patient was intubated again it was not a difficult intubation, diarrhea patient was seen by Dr. Delacruz and had a bronchoscopy samples were collected for culture, currently patient is on vent and stable. patient remains intubated, seen by surgery abscess has resolved will remove the drain soon, seen by Dr. clarke patient has finished course of antibiotic no more antibiotics needed, patient will need CT scan of the neck prior to extubation, CT scan of the neck showed 1. Mild emphysema and right thyroid nodule. Consider thyroid ultrasound after resolution of acute disease for risk stratification. patient is on vent, off sedation in an attempt to wean the patient off ventilator. on 10/29 patient was extubated, on 10/30 patient was transferred out of ICU to IMU, today patient was struggling seemed difficulty with breathing was unable to provide any review of symptom and lungs sounded quite congested with poor air entry, discussed with adding machine operator will transfer patient back to ICU close monitoring as patient may require re-intubation (2) Respiratory failure: Qualifiers: Chronicity: acute Respiratory failure complication: hypoxia Qualified Code(s): J96.01 - Acute respiratory failure with hypoxia Code(s): J96.90 - Respiratory failure, unspecified, unspecified whether with hypoxia or hypercapnia Status: Acute Assessment and Plan: On mechanical ventilation. trying to wean off patient was extubated Possible ARDS. Hypoxemic resp failure. (3) Atrial fibrillation:
[2019-11-01 17:44] LABS: Glucose Point of Care 101 (65-105)
[2019-11-01 23:02] LABS: Vancomycin Trough 20.1 ug/mL (10.0-20.0)
[2019-11-01 23:17] LABS: Glucose Point of Care 87 (65-105)
[2019-11-02] VITALS (27 sets, daily range): BP systolic 110–139; BP diastolic 69–99; PULSE 79–123; RESP 17–24; TEMP 36.1–36.9; O2SAT 90–100
[2019-11-02] MEDS: AZTREONAM 1 GM in DEXTROSE 5% IN WATER 50 ML IVPB (01:13)
[2019-11-02] MEDS: IPRATROPIUM BR 0.02% INH SOLN 0.5 MG/2.5 ML VIAL INHALATION ×4 (01:31→20:22)
[2019-11-02] MEDS: CENTRAL LINE FLUSH 10 ML IV PUSH ×3 (05:38→20:05)
[2019-11-02 05:54] LABS: Glucose Point of Care 77 (65-105)
[2019-11-02 06:05] LABS: Hematocrit 27.5 % (42.0-52.0); Hemoglobin 8.7 g/dL (14.0-18.0); Mean Corpuscular HGB Conc 31.6 g/dl (32-36); Mean Corpuscular Hemoglobin 30.9 pg (26-34); Mean Corpuscular Volume 97.5 fl (80-100); Platelet Count Result 259 k/mm3 (150-375); Red Blood Count 2.82 M/mm3 (4.6-6.20); Red Cell Distribution Width 16.9 % (11.5-14.5); White Blood Count 7.6 K/mm3 (4.5-10.0)
[2019-11-02 06:23] LABS: Blood Urea Nitrogen 15 mg/dL (9-20); Calcium 8.5 mg/dL (8.4-10.2); Carbon Dioxide 34 mmol/L (22-30); Chloride 95 mmol/L (98-107); Estimated CRCL calculation 141 ml/min; Estimated Glomerular Filt Rate > 60; Glucose 91 mg/dL (75-110); Magnesium 1.9 mg/dL (1.6-2.3); Phosphorus 3.3 mg/dL (2.5-4.5); Sodium 134 mmol/L (137-145)
--- NOTE | 2019-11-02 08:27 | WPDINFPN2 ---
Progress Note: A&P Assessment and Plan (1) Gallbladder abscess: Code(s): K81.0 - Acute cholecystitis Status: Acute Assessment and Plan: 1. Acute cholecystitis with abscess, MDRO isolated. [address] His infection is resolved by microbiology testing/exam/labs 2. Dysphagia. 3. Respiratory distress with lung infiltrates, possible ARDS due to #1. tracheobronchitis or aspiration pneumonia remains possible, WBC back to normal consistently 4. Yeast in sputum, colonizer and not pathogenic in this patient REC off Imipenem 6 days (14 days Rx). Aztreo/Vanc#6, for potential HCAP, stop (PCT level still pending after 4 days). Would pull CVC as soon as feasible, due to prolonged dwell time and risk thereby of infection Subjective Date/time seen: 11/02/19 08:28 Interval history: no complaints, + cough Exam Narrative: Exam Narrative: afebrile Const: General: no acute distress Resp: Other: upper airway noise, otherwise clear, vesicular Cardio: Rate: regular rate Rhythm: regular rhythm Heart sounds: no murmurs GI: Inspection: non-distended GI Palp: Yes Soft to palpation, No Tenderness to palpation present (GI) and No Guarding due to palpation present (GI) Skin: General skin exam: normal color and no rashes or lesions noted Other: R Ij line without drainage nor tenderness Objective Data Vital Signs Vital Signs: Vital Signs - 24 hr 11/01/19 09:16 11/01/19 09:20 11/01/19 09:29 Temperature Pulse Rate 107 H 109 H Respiratory Rate 20 Blood Pressure Pulse Oximetry 97 11/01/19 09:36 11/01/19 10:00 11/01/19 10:05 Temperature Pulse Rate 103 H 115 H Respiratory Rate 20 Blood Pressure Pulse Oximetry 87 L 11/01/19 10:10 11/01/19 11:48 11/01/19 12:00 Temperature 37.0 C Pulse Rate 104 H 96 Respiratory Rate 20 Blood Pressure 143/88 H Pulse Oximetry 91 90 93 11/01/19 13:36 11/01/19 14:00 11/01/19 14:11 Temperature Pulse Rate 86 91 Respiratory Rate 20 Blood Pressure 114/83 Pulse Oximetry 97 93 11/01/19 14:39 11/01/19 14:59 11/01/19 15:08 Temperature Pulse Rate 88 87 90 Respiratory Rate 19 19 Blood Pressure 114/83 Pulse Oximetry 98 11/01/19 15:16 11/01/19 16:00 11/01/19 17:05 Temperature 36.5 C Pulse Rate 105 H 91 Respiratory Rate 19 21 H Blood Pressure 105/68 Pulse Oximetry 95 94 11/01/19 18:00 11/01/19 18:03 11/01/19 20:00 Temperature 36.6 C Pulse Rate 96 112 H 107 H Respiratory Rate 25 H 20 Blood Pressure 144/100 H 122/73 Pulse Oximetry 94 95 11/01/19 20:07 11/01/19 20:19 11/01/19 20:27 Temperature Pulse Rate 110 H 110 H 109 H Respiratory Rate 20 20 Blood Pressure Pulse Oximetry 96 11/01/19 22:00 11/02/19 00:00 11/02/19 00:59 Temperature 36.8 C Pulse Rate 103 H 97 100 Respiratory Rate 22 H 23 H 20 Blood Pressure 106/90 118/71 Pulse Oximetry 100 96 95 11/02/19 01:31 11/02/19 01:53 11/02/19 02:00 Temperature Pulse Rate 91 91 92 Respiratory Rate 18 18 20 Blood Pressure 139/87 Pulse Oximetry 98 11/02/19 04:00 11/02/19 06:00 Temperature 36.8 C Pulse Rate 99 103 H Respiratory Rate 24 H 24 H Blood Pressure 134/99 H 126/88 Pulse Oximetry 96 97 Intake/Output Intake/Output: Intake & Output 10/30/19 10/31/19 11/01/19 11/02/19 23:59 23:59 23:59 23:59 Intake Total 1751 1612 1150 618.25 Output Total 2490 875 2165 1800 [facility]739 737 -1015 -1181.75 Meds/Results Medications: Active Medications Generic Name Dose Route Start Last Admin Trade Name Freq PRN Reason Stop Dose Admin Acetaminophen 650 mg 10/10/19 11:24 10/10/19 12:18 Tylenol Tablet PO 650 mg Q6H PRN Administration Mild Pain (1-3) or Fever Aspirin 325 mg 10/17/19 08:00 11/01/19 09:30 Aspirin FEED TUBE 325 mg DAILY@0800 MONET Administration Dextrose 12.5 gm 10/22/19 07:39 10/28/19 08:21 Dextrose 50% Syringe IV PUSH 12.5 gm PRN PRN Administration Hypog
[2019-11-02] MEDS: ASPIRIN 325 MG TABLET FEED TUBE (08:40)
[2019-11-02] MEDS: PANTOPRAZOLE SODIUM IV 40 MG VIAL IV PUSH (08:40)
[2019-11-02] MEDS: TIMOLOL MALEATE 0.5% OP SOLN 5 ML BTL 1 DROP EACH EYE ×2 (08:40→20:05)
[2019-11-02] MEDS: METOPROLOL TARTRATE 50 MG TAB 100 MG PO ×2 (08:40→20:05)
[2019-11-02] MEDS: MULTIVITAMINS THERAPEUTIC TAB (*BKC) 1 TABLET PO (08:40)
[2019-11-02] MEDS: THIAMINE HCL 100 MG TABLET PO (08:41)
[2019-11-02] MEDS: FOLIC ACID 1 MG TABLET PO (08:41)
[2019-11-02] MEDS: ENOXAPARIN 40 MG/0.4 ML SYRINGE SUB-Q (08:41)
[2019-11-02] MEDS: polyethylene glycoL 3350 17 GM POWD.PACK PO (08:41)
[2019-11-02] MEDS: FUROSEMIDE INJ 100 MG in SODIUM CHLORIDE 0.9% IV 90 ML 5.1 MG IV CONT (08:41)
[2019-11-02] MEDS: DORNASE ALFA INH SOLN 1 MG/ML 2.5 ML AMP 2.5 MG INHALATION ×2 (08:49→20:22)
[2019-11-02] MEDS: INSULIN GLARGINE (*BKC) 100 UNITS/ML 15 UNITS SUB-Q (08:55)
--- NOTE | 2019-11-02 11:16 | PCDIET ---
Nutrition Follow-Up Complete: Nutrition Diagnosis: Inadequate oral intake related to multiple medical issues as evidenced by NPO diet, previous meal refusals on advanced diet. Nutrition Goal: Patient to meet estimated needs Goal in progress. Patient initially ate well upon diet advancement, but intakes have since declined. Patient unable to provide much information re: appetite. RN reports patient ate sausage and eggs for breakfast and drank fluids well, including Ensure Compact (220kcal, 9g protein). Recommend continuing pureed, heart healthy diet with level 3 liquids and thickened Ensure Compact TID. Will follow closely. Last recorded weight is 101.2 kg which is stable with last review. Bowel Motility: Last documented BM on 11/01/19 x 1. Labs Reviewed: Hgb (8.7), Hct (27.5), Cr (0.5), Na (134), K (3.0) Meds Noted: Folic Acid, MVI, Furosemide, Protonix, Novolog, Lantus, Atrovent, KCl, Thiamine Additional Notes: Buttocks wound and abdominal drain reported. Will continue to monitor with same goal. Nutrition Monitoring and Evaluation: Follow up in 3 days.
--- NOTE | 2019-11-02 11:58 | PCPTNOTE ---
Spoke w/ Dr Joaquin regarding pt's change in medical status. Stated to continue PT/OT to improve endurance and move secretions.
[2019-11-02 12:21] LABS: Glucose Point of Care 114 (65-105)
--- NOTE | 2019-11-02 14:13 | WPDINTPN ---
Progress Note: A&P Assessment and Plan (1) Acute respiratory failure: Qualifiers: Respiratory failure complication: hypoxia Qualified Code(s): J96.01 - Acute respiratory failure with hypoxia Code(s): J96.00 - Acute respiratory failure, unspecified whether with hypoxia or hypercapnia Status: Acute Assessment and Plan: Due to pneumonia, acute CHF, and COPD. He was initially intubated in the ICU on 10/15/2019, then extubated on 10/17 but reintubated on 10/18 (difficult airway, required anesthesia) due to difficulty clearing secretions and with vocal cord edema. He was then extubated on 10/26. He was initially on HFNC but was weaned down to NC and transferred to floor on 10/30. -Transferred back to ICU on 10/31 due to SOB. He has upper airway rhonchi and was nasotracheally suctioned in ICU with removal of large secretions. - CXR showed pulmonary edema and he is almost 13L net positive. continue Lasix gtt. monitor CO2 levels to prevent severe alkalosis - will order chest physical therapy, coronet/ incentive spirometry. - up in chair, physical and occupational therapy to follow the patient (2) Afib: Qualifiers: Atrial fibrillation type: unspecified Qualified Code(s): I48.91 - Unspecified atrial fibrillation Code(s): I48.91 - Unspecified atrial fibrillation Status: Acute Assessment and Plan: Continue PO Cardizem and metoprolol. (3) Pneumonia: Qualifiers: Pneumonia type: aspiration pneumonia Aspiration pneumonia type: unspecified Laterality: bilateral Lung location: unspecified part of lung Qualified Code(s): J69.0 - Pneumonitis due to inhalation of food and vomit Code(s): J18.9 - Pneumonia, unspecified organism Status: Acute Assessment and Plan: Patient possibly with aspiration pneumonia; started patient on vancomycin and aztreonam on 10/27 - appreciate infectious disease following the patient, vancomycin and aztreonam were discontinued 11/02/2019 - procalcitonin levels are still pending (4) COPD (chronic obstructive pulmonary disease): Qualifiers: COPD type: unspecified COPD Qualified Code(s): J44.9 - Chronic obstructive pulmonary disease, unspecified Code(s): J44.9 - Chronic obstructive pulmonary disease, unspecified Status: Chronic Assessment and Plan: Continue bronchodilators. (5) Gallbladder abscess: Code(s): K81.0 - Acute cholecystitis Status: Acute Assessment and Plan: Surgery service managing, s/p cholecystostomy tube. Abscess culture growing ESBL E coli.. 2 of the 3 right upper quadrant drains were removed on 10/26/2019 by surgery. (6) Chronic alcohol use: Code(s): Z72.89 - Other problems related to lifestyle Status: Chronic Assessment and Plan: Continue thiamine and folic acid. (7) CHF (congestive heart failure): Qualifiers: Heart failure type: systolic Heart failure chronicity: chronic Qualified Code(s): I50.22 - Chronic systolic (congestive) heart failure Code(s): I50.9 - Heart failure, unspecified Status: Chronic Assessment and Plan: Acute on chronic diastolic CHF; significantly fluid overloaded on CXR and by I/O. Start Lasix gtt. (8) GERD (gastroesophageal reflux disease): Qualifiers: Esophagitis presence: esophagitis presence not specified Qualified Code(s): K21.9 - Gastro-esophageal reflux disease without esophagitis Code(s): K21.9 - Gastro-esophageal reflux disease without esophagitis Status: Chronic Assessment and Plan: Continue IV protonix (9) Ileus: Code(s): K56.7 - Ileus, unspecified Status: Acute Assessment and Plan: Resolved. (10) Anasarca: Code(s): R60.1 - Generalized edema Status: Acute Assessment and Plan: Multifactorial. Continue Lasix as tolerated by blood pressure. (11) Hyperglycemia: Code(s): R73.9 - Hyperglycemia, unspecifie
--- NOTE | 2019-11-02 15:26 | PM.PNPUL ---
Progress Note: A&P Assessment and Plan (1) Respiratory failure: Qualifiers: Chronicity: acute Respiratory failure complication: hypoxia Qualified Code(s): J96.01 - Acute respiratory failure with hypoxia Code(s): J96.90 - Respiratory failure, unspecified, unspecified whether with hypoxia or hypercapnia Status: Acute Assessment and Plan: (1) Respiratory failure: Assessment and Plan: Recurrent Aspiration Pneumonia/Pneumonitis with difficulty clearing, coughing secretions. - would consider trach and PEG preemptively as he is high risk for recurrent intubation - consider ENT consult for upper endoscopy to look at vocal cords - avoid sedatives and narcotics and anticholinergics - avoid over diuresis, bicarb is climbind and he has signs of contraction alkalosis - chest PT may be temporarily helpful Subjective Date/time seen: 11/02/19 15:26 This 69 yo man is seen in follow up, was transferred from [facility] back to the ICU overnight with worsening CXR and shortness of breath. He was seen at 13:20, was getting up in a chair with help from PT. He is not in distress. He is on a Lasix drip to help with his positive fluid balance and pulmonary edema seen on the CXR. 10/14 - 10/17 intubated, 10/18 - reintubated due to secretions and vocal cord edema 10/26- extubated 10/30 - to IMU 10/31 - return to ICU Review of Systems Review of Systems: All systems reviewed & are unremarkable except as noted in HPI and below (HPI) Exam Narrative: Exam Narrative: Sitting up in a chair Const: General: comfortable and no acute distress Eyes: General: appearance normal, both eyes and all related structures Neck: Neck: supple and no JVD Resp: Auscultation: crackles and diminished lung sounds Cardio: Rate: regular rate Rhythm: regular rhythm GI: Inspection: distended Auscultation: normal bowel sounds Urinary Catheter: Urinary Catheter: patent and draining Skin: General skin exam: normal color Neuro: Cognition (Neuro): abnormal cognition Speech: No normal speech (dysphonia and dysphagia ) Objective Data Vital Signs Vital Signs: Vital Signs - 24 hr 11/01/19 16:00 11/01/19 17:05 11/01/19 18:00 Temperature 36.5 C Pulse Rate 91 96 Respiratory Rate 21 H Blood Pressure 105/68 Pulse Oximetry 95 94 11/01/19 18:03 11/01/19 20:00 11/01/19 20:07 Temperature 36.6 C Pulse Rate 112 H 107 H 110 H Respiratory Rate 25 H 20 20 Blood Pressure 144/100 H 122/73 Pulse Oximetry 94 95 96 11/01/19 20:19 11/01/19 20:27 11/01/19 22:00 Temperature Pulse Rate 110 H 109 H 103 H Respiratory Rate 20 22 H Blood Pressure 106/90 Pulse Oximetry 100 11/02/19 00:00 11/02/19 00:59 11/02/19 01:31 Temperature 36.8 C Pulse Rate 97 100 91 Respiratory Rate 23 H 20 18 Blood Pressure 118/71 Pulse Oximetry 96 95 11/02/19 01:53 11/02/19 02:00 11/02/19 04:00 Temperature 36.8 C Pulse Rate 91 92 99 Respiratory Rate 18 20 24 H Blood Pressure 139/87 134/99 H Pulse Oximetry 98 96 11/02/19 06:00 11/02/19 08:00 11/02/19 08:40 Temperature 36.1 C L Pulse Rate 103 H 113 H 111 H Respiratory Rate 24 H 20 Blood Pressure 126/88 110/95 H Pulse Oximetry 97 90 11/02/19 08:41 11/02/19 08:48 11/02/19 08:50 Temperature Pulse Rate 111 H 114 H Respiratory Rate 18 Blood Pressure 110/95 H Pulse Oximetry 92 11/02/19 09:03 11/02/19 10:00 11/02/19 12:00 Temperature 36.7 C Pulse Rate 113 H 123 H 109 H Respiratory Rate 18 24 H 21 H Blood Pressure 127/83 131/95 H Pulse Oximetry 95 99 11/02/19 14:00 11/02/19 14:29 11/02/19 14:36 Temperature Pulse Rate 104 H 114 H 114 H Respiratory Rate 17 18 18 Blood Pressure 128/83 Pulse Oximetry Intake/Output Intake/Output: Intake & Output 10/30/19 10/31/19 11/01/19 11/02/19 23:59 23:59 23:59 23:59 Intake Total 1751 1612 1150 1160.00 Output Total 2490 873 2165 0135 Balance -739 737 -1015 -1265.00 Meds/Results
[2019-11-02 18:23] LABS: Glucose Point of Care 89 (65-105)
[2019-11-02] MEDS: OLANZapine 10 MG INJ VIAL 5 MG IM (18:44)
[2019-11-02] MEDS: HALOPERIDOL LACTATE 5 MG/ML VIAL IV PUSH (22:22)
[2019-11-02 22:59] LABS: Glucose Point of Care 107 (65-105)
[2019-11-03] VITALS (26 sets, daily range): BP systolic 88–136; BP diastolic 58–114; PULSE 70–114; RESP 14–28; TEMP 36.7–37.1; O2SAT 88–100
--- NOTE | 2019-11-03 01:47 | PCRCNOTE ---
RN does not want pt awakened, due to pt being combative when awake
[2019-11-03] MEDS: FUROSEMIDE INJ 100 MG in SODIUM CHLORIDE 0.9% IV 90 ML IV CONT (02:57)
[2019-11-03 04:41] LABS: Hematocrit 27.5 % (42.0-52.0); Hemoglobin 8.9 g/dL (14.0-18.0); Mean Corpuscular HGB Conc 32.4 g/dl (32-36); Mean Corpuscular Hemoglobin 31.6 pg (26-34); Mean Corpuscular Volume 97.5 fl (80-100); Mean Platelet Volume 9.9 fl (7.4-10.4); Platelet Count Result 230 k/mm3 (150-375); Red Blood Count 2.82 M/mm3 (4.6-6.20); Red Cell Distribution Width 17.2 % (11.5-14.5); White Blood Count 6.6 K/mm3 (4.5-10.0)
[2019-11-03 04:57] LABS: Anion Gap 7.7 mmol/L (7-16); Blood Urea Nitrogen 14 mg/dL (9-20); Calcium 8.4 mg/dL (8.4-10.2); Carbon Dioxide 34 mmol/L (22-30); Chloride 98 mmol/L (98-107); Estimated CRCL calculation 141 ml/min; Estimated Glomerular Filt Rate > 60; Glucose 74 mg/dL (75-110); Magnesium 1.8 mg/dL (1.6-2.3); Phosphorus 3.6 mg/dL (2.5-4.5); Potassium 2.7 mmol/L (3.4-5.0); Sodium 137 mmol/L (137-145)
[2019-11-03] MEDS: CENTRAL LINE FLUSH 10 ML IV PUSH ×3 (06:00→20:08)
[2019-11-03 06:10] LABS: Glucose Point of Care 84 (65-105)
[2019-11-03] MEDS: IPRATROPIUM BR 0.02% INH SOLN 0.5 MG/2.5 ML VIAL INHALATION ×3 (09:21→20:36)
[2019-11-03] MEDS: DORNASE ALFA INH SOLN 1 MG/ML 2.5 ML AMP 2.5 MG INHALATION ×2 (09:21→20:46)
[2019-11-03] MEDS: ASPIRIN 325 MG TABLET FEED TUBE (09:33)
[2019-11-03] MEDS: THIAMINE HCL 100 MG TABLET PO (09:33)
[2019-11-03] MEDS: METOPROLOL TARTRATE 50 MG TAB 100 MG PO ×2 (09:33→20:07)
[2019-11-03] MEDS: MULTIVITAMINS THERAPEUTIC TAB (*BKC) 1 TABLET PO (09:34)
[2019-11-03] MEDS: PANTOPRAZOLE SODIUM IV 40 MG VIAL IV PUSH (09:34)
[2019-11-03] MEDS: FOLIC ACID 1 MG TABLET PO (09:34)
[2019-11-03] MEDS: INSULIN GLARGINE (*BKC) 100 UNITS/ML 15 UNITS SUB-Q (09:35)
[2019-11-03] MEDS: TIMOLOL MALEATE 0.5% OP SOLN 5 ML BTL 1 DROP EACH EYE ×2 (09:36→20:08)
[2019-11-03] MEDS: POTASSIUM CHLORIDE 20 MEQ PACKET (FOR LIQUID) 80 MEQ PO (09:36)
[2019-11-03] MEDS: ENOXAPARIN 40 MG/0.4 ML SYRINGE SUB-Q (09:36)
[2019-11-03] MEDS: polyethylene glycoL 3350 17 GM POWD.PACK PO (09:36)
--- NOTE | 2019-11-03 11:26 | PCDIET ---
ICU Rounding Note: Patient continues on heart healthy, pureed diet with level 3 liquids and Ensure Compact TID. Per RN, patient took Ensure Compact today with breakfast, but seems more confused. Intakes on 11/02/19 were 0-70% of recorded meals. Last recorded weight is 101.2kg which is stable. Bowel Motility: Last documented BM on 11/01/19. Labs Reviewed: Hgb (8.9), Hct (27.5), Glu (74), Cr (0.5), K (2.7) Meds Noted: IV KCl, Folic Acid, Atrovent, Lasix drip, Xopenex, Novolog (held this AM), MVI, Protonix, Lantus, Miralax, Thiamine Additional Notes: No change in buttock wound documented. Will continue to monitor. Following daily in ICU rounds. Assessing/reassessing every 3 days.
--- NOTE | 2019-11-03 11:42 | PCOTNOTE ---
Occupational therapy treatment unable to be completed as patient is out for testing. Will continue per plan of care.
[2019-11-03 12:08] LABS: Glucose Point of Care 98 (65-105)
[2019-11-03] MEDS: QUEtiapine FUMARATE 12.5 MG TABLET PO ×2 (12:48→20:08)
--- NOTE | 2019-11-03 13:30 | WPDINFPN2 ---
Progress Note: A&P Assessment and Plan (1) Gallbladder abscess: Code(s): K81.0 - Acute cholecystitis Status: Acute Assessment and Plan: 1. Acute cholecystitis with abscess, MDRO isolated. [address] His infection is resolved by microbiology testing/exam/labs 2. Dysphagia. 3. Respiratory distress with lung infiltrates, possible ARDS due to #1. tracheobronchitis or aspiration pneumonia remains possible, WBC back to normal consistently 4. Yeast in sputum, colonizer and not pathogenic in this patient REC off Imipenem (14 days Rx). Off Aztreo/Vanc (6 days Rx). Will sign off. Would pull CVC as soon as feasible, due to prolonged dwell time and risk thereby of infection Subjective Date/time seen: 11/03/19 13:30 Interval history: denies dysphagia. No dyspnea Exam Narrative: Exam Narrative: afebrile Const: General: no acute distress Resp: Other: coarse breath sounds, much improved since last exam. Vesicular, no resp distress Objective Data Vital Signs Vital Signs: Vital Signs - 24 hr 11/02/19 14:00 11/02/19 14:29 11/02/19 14:36 Temperature Pulse Rate 107 H 114 H 114 H Respiratory Rate 17 18 18 Blood Pressure 128/83 Pulse Oximetry 11/02/19 16:00 11/02/19 18:00 11/02/19 20:00 Temperature 36.4 C L 36.9 C Pulse Rate 87 97 102 H Respiratory Rate 17 23 H 23 H Blood Pressure 124/99 H 118/69 136/87 Pulse Oximetry 100 100 100 11/02/19 20:05 11/02/19 20:23 11/02/19 21:02 Temperature Pulse Rate 103 H 95 92 Respiratory Rate 19 18 Blood Pressure Pulse Oximetry 11/02/19 21:03 11/02/19 22:00 11/02/19 22:33 Temperature Pulse Rate 85 86 Respiratory Rate 22 H 22 H Blood Pressure 134/92 H Pulse Oximetry 94 96 11/03/19 00:00 11/03/19 00:30 11/03/19 02:00 Temperature 36.9 C Pulse Rate 70 78 Respiratory Rate 20 22 H 20 Blood Pressure 88/59 L 95/64 L Pulse Oximetry 98 99 11/03/19 02:01 11/03/19 02:57 11/03/19 04:00 Temperature 36.9 C Pulse Rate 80 79 Respiratory Rate 22 H 20 Blood Pressure 99/69 L 131/101 H Pulse Oximetry 97 11/03/19 06:00 11/03/19 06:23 11/03/19 08:00 Temperature 36.9 C Pulse Rate 77 79 86 Respiratory Rate 20 22 H 14 Blood Pressure 111/80 111/80 114/77 Pulse Oximetry 99 100 11/03/19 09:08 11/03/19 09:18 11/03/19 09:33 Temperature Pulse Rate 110 H 113 H 102 H Respiratory Rate 20 20 Blood Pressure Pulse Oximetry 96 11/03/19 09:47 11/03/19 10:00 Temperature Pulse Rate 97 96 Respiratory Rate 20 28 H Blood Pressure 128/92 H Pulse Oximetry 88 L 96 Intake/Output Intake/Output: Intake & Output 10/31/19 11/01/19 11/02/19 11/03/19 23:59 23:59 23:59 23:59 Intake Total 1612 1150 1365.01 275.8 Output Total 875 2165 2975 2100 Balance 737 -1015 -1609.99 -1824.2 Meds/Results Medications: Active Medications Generic Name Dose Route Start Last Admin Trade Name Freq PRN Reason Stop Dose Admin Acetaminophen 650 mg 10/10/19 11:24 10/10/19 12:18 Tylenol Tablet PO 650 mg Q6H PRN Administration Mild Pain (1-3) or Fever Aspirin 325 mg 10/17/19 08:00 11/03/19 09:33 Aspirin FEED TUBE 325 mg DAILY@0800 MONET Administration Dextrose 12.5 gm 10/22/19 07:39 10/28/19 08:21 Dextrose 50% Syringe IV PUSH 12.5 gm PRN PRN Administration Hypoglycemia Protocol Diltiazem HCl 240 mg 10/29/19 09:00 11/03/19 09:33 Cardizem Cd PO 240 mg QAM MONET Administration Dornase Fernando 2.5 mg 10/14/19 20:00 11/03/19 09:21 Pulmozyme INHALATION 2.5 mg Q12HRT MONET Administration Enoxaparin Sodium 40 mg 10/09/19 09:00 11/03/19 09:36 Lovenox SUB-Q 40 mg DAILY MONET Administration Folic Acid 1 mg 10/09/19 09:00 11/03/19 09:34 Folic Acid PO 1 mg DAILY MONET Administration Glucagon 1 mg 10/22/19 07:39 Glucagon For Inj IM PRN PRN Hypoglycemia Protocol Glucose 15 gm 10/22/19 07:39 Glutose 15 PO PRN PRN
--- NOTE | 2019-11-03 14:29 | WPDINTPN ---
Progress Note: A&P Assessment and Plan (1) Acute respiratory failure: Qualifiers: Respiratory failure complication: hypoxia Qualified Code(s): J96.01 - Acute respiratory failure with hypoxia Code(s): J96.00 - Acute respiratory failure, unspecified whether with hypoxia or hypercapnia Status: Acute Assessment and Plan: Due to pneumonia, acute CHF, and COPD. He was initially intubated in the ICU on 10/15/2019, then extubated on 10/17 but reintubated on 10/18 (difficult airway, required anesthesia) due to difficulty clearing secretions and with vocal cord edema. He was then extubated on 10/26. He was initially on HFNC but was weaned down to NC and transferred to floor on 10/30. -Transferred back to ICU on 10/31 due to SOB. He has upper airway rhonchi and was nasotracheally suctioned in ICU with removal of large secretions. - CXR showed pulmonary edema and he is almost 13L net positive. continue Lasix gtt. monitor CO2 levels to prevent severe alkalosis - continue chest physical therapy, coronet/ incentive spirometry, Pulmozyme, secretions are creamy yellow in color, slightly thick secretions - up in chair, physical and occupational therapy to follow the patient (2) Afib: Qualifiers: Atrial fibrillation type: unspecified Qualified Code(s): I48.91 - Unspecified atrial fibrillation Code(s): I48.91 - Unspecified atrial fibrillation Status: Acute Assessment and Plan: Continue PO Cardizem and metoprolol. (3) Pneumonia: Qualifiers: Pneumonia type: aspiration pneumonia Aspiration pneumonia type: unspecified Laterality: bilateral Lung location: unspecified part of lung Qualified Code(s): J69.0 - Pneumonitis due to inhalation of food and vomit Code(s): J18.9 - Pneumonia, unspecified organism Status: Acute Assessment and Plan: Patient possibly with aspiration pneumonia; started patient on vancomycin and aztreonam on 10/27 - appreciate infectious disease following the patient, vancomycin and aztreonam were discontinued 11/02/2019 - procalcitonin levels are still pending (4) COPD (chronic obstructive pulmonary disease): Qualifiers: COPD type: unspecified COPD Qualified Code(s): J44.9 - Chronic obstructive pulmonary disease, unspecified Code(s): J44.9 - Chronic obstructive pulmonary disease, unspecified Status: Chronic Assessment and Plan: Continue bronchodilators. (5) Gallbladder abscess: Code(s): K81.0 - Acute cholecystitis Status: Acute Assessment and Plan: Surgery service managing, s/p cholecystostomy tube. Abscess culture growing ESBL E coli.. 2 of the 3 right upper quadrant drains were removed on 10/26/2019 by surgery. - 1 drain in right upper quadrant, with biliary drainage (6) Chronic alcohol use: Code(s): Z72.89 - Other problems related to lifestyle Status: Chronic Assessment and Plan: Continue thiamine and folic acid. (7) CHF (congestive heart failure): Qualifiers: Heart failure type: systolic Heart failure chronicity: chronic Qualified Code(s): I50.22 - Chronic systolic (congestive) heart failure Code(s): I50.9 - Heart failure, unspecified Status: Chronic Assessment and Plan: Acute on chronic diastolic CHF; significantly fluid overloaded on CXR and by I/O. continue Lasix gtt. - monitor for alkalosis due to diuresis (8) GERD (gastroesophageal reflux disease): Qualifiers: Esophagitis presence: esophagitis presence not specified Qualified Code(s): K21.9 - Gastro-esophageal reflux disease without esophagitis Code(s): K21.9 - Gastro-esophageal reflux disease without esophagitis Status: Chronic Assessment and Plan: Continue IV protonix (9) Ileus: Code(s): K56.7 - Ileus, unspecified Status: Acute Assessment and Plan: Resolved. (10) Anasarca: Code(s): R60.1 - Generalized edema
--- NOTE | 2019-11-03 14:43 | PM.IMPN ---
Progress Note: A&P Assessment and Plan (1) Gallbladder abscess: Code(s): K81.0 - Acute cholecystitis Status: Acute Assessment and Plan: AND with liver abscess (2) Respiratory failure: Qualifiers: Chronicity: acute Respiratory failure complication: hypoxia Qualified Code(s): J96.01 - Acute respiratory failure with hypoxia Code(s): J96.90 - Respiratory failure, unspecified, unspecified whether with hypoxia or hypercapnia Status: Acute Assessment and Plan: Hypoxemic resp failure. Secondary to congestion (3) Atrial fibrillation: Code(s): I48.91 - Unspecified atrial fibrillation Status: Acute Assessment and Plan: On metoprolol Not a candidate for AC. (4) CHF (congestive heart failure): Qualifiers: Heart failure type: systolic Heart failure chronicity: chronic Qualified Code(s): I50.22 - Chronic systolic (congestive) heart failure Code(s): I50.9 - Heart failure, unspecified Status: Chronic Assessment and Plan: On Lasix IV BID (5) Chronic alcohol use: Code(s): Z72.89 - Other problems related to lifestyle Status: Chronic Assessment and Plan: On thiamine Subjective Date/time seen: 11/03/19 14:43 Interval history: Complicated history pt was transfered to ICU from IMU in respiratory distress. Pt resp status has improved on 1 liter of oxygen presently.can move to the medical floor. No other acute issues today Review of Systems Review of Systems: All systems reviewed & are unremarkable except as noted in HPI and below Exam Narrative: Exam Narrative: elderly frail, pt appears very fatigued Resp: Other: Miild distress on 1 liter of oxygen Cardio: Rate: regular rate and other GI: Other: MIld TTP Skin: General skin exam: normal color Lesions: no lesions Rashes: no rashes Trauma: no lacerations or abrasions Wounds: no wounds Hair: normal Nails: normal Extrem: General: normal to inspection Right upper extremity: normal to inspection and shoulder/upper arm Left upper extremity: normal to inspection and shoulder/upper arm Right lower extremity: normal to inspection Left lower extremity: normal to inspection Objective Data Vital Signs Vital Signs: Vital Signs - 24 hr 11/02/19 16:00 11/02/19 18:00 11/02/19 20:00 Temperature 36.4 C L 36.9 C Pulse Rate 87 97 102 H Respiratory Rate 17 23 H 23 H Blood Pressure 124/99 H 118/69 136/87 Pulse Oximetry 100 100 100 11/02/19 20:05 11/02/19 20:23 11/02/19 21:02 Temperature Pulse Rate 103 H 95 92 Respiratory Rate 19 18 Blood Pressure Pulse Oximetry 11/02/19 21:03 11/02/19 22:00 11/02/19 22:33 Temperature Pulse Rate 85 86 Respiratory Rate 22 H 22 H Blood Pressure 134/92 H Pulse Oximetry 94 96 11/03/19 00:00 11/03/19 00:30 11/03/19 02:00 Temperature 36.9 C Pulse Rate 70 78 Respiratory Rate 20 22 H 20 Blood Pressure 88/59 L 95/64 L Pulse Oximetry 98 99 11/03/19 02:01 11/03/19 02:57 11/03/19 04:00 Temperature 36.9 C Pulse Rate 80 79 Respiratory Rate 22 H 20 Blood Pressure 99/69 L 131/101 H Pulse Oximetry 97 11/03/19 06:00 11/03/19 06:23 11/03/19 08:00 Temperature 36.9 C Pulse Rate 77 79 86 Respiratory Rate 20 22 H 14 Blood Pressure 111/80 111/80 114/77 Pulse Oximetry 99 100 11/03/19 09:08 11/03/19 09:18 11/03/19 09:33 Temperature Pulse Rate 110 H 113 H 102 H Respiratory Rate 20 20 Blood Pressure Pulse Oximetry 96 11/03/19 09:47 11/03/19 10:00 11/03/19 12:00 Temperature 36.8 C Pulse Rate 97 96 101 H Respiratory Rate 20 28 H 22 H Blood Pressure 128/92 H 95/58 L Pulse Oximetry 88 L 96 95 11/03/19 14:00 Temperature Pulse Rate 89 Respiratory Rate 20 Blood Pressure 119/106 H Pulse Oximetry 98 Intake/Output Intake/Output: Intake & Output 10/31/19 11/01/19 11/02/19 11/03/19 23:59 23:59 23:59 23:59 Intake Total 3245 2121 0938
[2019-11-03 16:18] LABS: Glucose Point of Care 102 (65-105)
[2019-11-03] MEDS: FUROSEMIDE INJ 40 MG/4 ML VIAL IV PUSH (16:55)
[2019-11-03] MEDS: POTASSIUM CHLORIDE 20 MEQ PACKET (FOR LIQUID) 40 MEQ PO (16:55)
[2019-11-03] MEDS: DEXTROSE 50% 25 GM/50 ML SYRINGE IV PUSH (20:04)
[2019-11-03 20:16] LABS: Glucose Point of Care 58 (65-105); Glucose Point of Care 66 (65-105)
[2019-11-03 23:15] LABS: Glucose Point of Care 90 (65-105)
[2019-11-04] VITALS (23 sets, daily range): BP systolic 116–166; BP diastolic 80–123; PULSE 86–120; RESP 16–24; TEMP 36.4–36.8; O2SAT 94–100
[2019-11-04] MEDS: IPRATROPIUM BR 0.02% INH SOLN 0.5 MG/2.5 ML VIAL INHALATION ×4 (02:50→19:04)
[2019-11-04] MEDS: CENTRAL LINE FLUSH 10 ML IV PUSH ×3 (04:08→21:26)
[2019-11-04] MEDS: DEXTROSE 50% 25 GM/50 ML SYRINGE IV PUSH ×2 (05:25→12:23)
[2019-11-04 05:36] LABS: Glucose Point of Care 59 (65-105)
[2019-11-04 05:50] LABS: Glucose Point of Care 103 (65-105)
[2019-11-04 08:09] LABS: Glucose Point of Care 72 (65-105)
--- NOTE | 2019-11-04 08:36 | PC.NURSE ---
11/04/19 @[address] Tes[address]. [address] Tesfaye updated regarding patient status. Patient mental status continues to not be at baseline. On assessment, patient pupils are unequal and sluggish. also informed of patient low blood glucose x2 overnight. Will continue to monitor.
[2019-11-04] MEDS: DORNASE ALFA INH SOLN 1 MG/ML 2.5 ML AMP 2.5 MG INHALATION ×2 (09:07→19:10)
[2019-11-04 09:36] LABS: Potassium 3.1 mmol/L (3.4-5.0)
--- NOTE | 2019-11-04 11:08 | PCDIET ---
ICU Rounding Note: Patient off unit for testing. Continues on pureed, heart healthy diet with level 3 liquids and Ensure Compact TID. Average intake on 11/03/19 was 60% of meals. Last recorded weight is 101.2kg which is stable. Bowel Motility: +BM today. Labs Reviewed: Glu (72) Meds Noted: Folic Acid, Lasix, Novolog, Atrovent, Xopenex, MVI, Protonix, Miralax, KCl, Vitamin B1 Additional Notes: Lantus discontinued. No change in skin documented. Following daily in ICU rounds. Assessing/reassessing every 3 days.
[2019-11-04] MEDS: ENOXAPARIN 40 MG/0.4 ML SYRINGE SUB-Q (11:09)
[2019-11-04] MEDS: FUROSEMIDE INJ 40 MG/4 ML VIAL IV PUSH ×2 (11:09→16:59)
[2019-11-04] MEDS: PANTOPRAZOLE SODIUM IV 40 MG VIAL IV PUSH (11:09)
[2019-11-04 12:22] LABS: Glucose Point of Care 54 (65-105)
--- NOTE | 2019-11-04 12:29 | PM.PNCARD ---
Progress Note: A&P Assessment and Plan (1) Afib: Qualifiers: Atrial fibrillation type: unspecified Qualified Code(s): I48.91 - Unspecified atrial fibrillation Code(s): I48.91 - Unspecified atrial fibrillation Status: Acute Assessment and Plan: Of unknown duration when first seen in July of this year. At that time he was difficult to control. Was on a significant dose of diltiazem along with carvedilol. Admitted with abdominal pain, acute cholecystitis and hepatic abcesses and elevated heart rates. Not a candidate for anticoagulation due to his alcohol abuse and reported falling. Continue aspirin 325 mg Continiue Metoprolol tartrate 100 mg q 12 hours and Diltiazem CD 240 mg daily Was combative and not cooperative this morning. Pupils unequal. Sedated for MRI. Heart rate elevated as has not had his medications this morning . (2) Essential hypertension: Code(s): I10 - Essential (primary) hypertension Status: Chronic Assessment and Plan: Generally controlled. Elevated today. As above (3) COPD (chronic obstructive pulmonary disease): Qualifiers: COPD type: unspecified COPD Qualified Code(s): J44.9 - Chronic obstructive pulmonary disease, unspecified Code(s): J44.9 - Chronic obstructive pulmonary disease, unspecified Status: Chronic Assessment and Plan: Management per hospitalist (4) Hypokalemia: Code(s): E87.6 - Hypokalemia Status: Acute Assessment and Plan: Supplementing. Additional 40 mEq IVBP ordered. Ordered scheduled oral replacement. Continues to be diuresed. Check K at 1700 and BMP in am. Additional Plan Plan discussed with Dr Moore 1240 11/04/2019 Subjective Date/time seen: 11/04/19 12:29 Interval history: Follow-up for: Atrial fibrillation with rapid ventricular response, mild LV dysfunction, history hypertension Date of service: 11/04/2019 Subjective:sedated for MRI this moringing. Still sleeping Review of Systems Review of Systems: ROS unobtainable: Yes unobtainable due to medical condition and unobtainable due to mental status Exam Const: General: comfortable, no acute distress and other (sedated) Other: Chronically ill appearign. Sleeping. HENMT: Mouth: Yes dry mucous membranes Eyes: Sclera: sclerae normal Pupils: Equal, round and reactive pupils present and Other pupil findings (right pupil smaller than left) Neck: Neck: supple Other: Right IJ tripple lumen Resp: Effort & Inspection: normal respiratory effort Auscultation: rhonchi Cardio: Rate: tachycardic Rhythm: abnormal rhythm Heart sounds: no murmurs GI: Inspection: non-distended GI Palp: Yes Soft to palpation Auscultation: normal bowel sounds Other: Abdomen soft bowel sounds diminished Urinary Catheter: Urinary Catheter: patent and draining Skin: General skin exam: normal color Neuro: General: other (sedated) Other: sedated Extrem: General: normal to inspection Other: No lower extremity edema, extremities warm, perfused. Psych: Appearance: other (Sedated) Other: Unresponsive Objective Data Vital Signs Vital Signs: Vital Signs - 24 hr 11/03/19 14:00 11/03/19 14:39 11/03/19 14:41 Temperature Pulse Rate 89 85 89 Respiratory Rate 20 18 18 Blood Pressure 119/106 H Pulse Oximetry 98 11/03/19 16:00 11/03/19 18:00 11/03/19 20:00 Temperature 36.7 C 37.1 C Pulse Rate 101 H 105 H 110 H Respiratory Rate 24 H 22 H 23 H Blood Pressure 136/112 H 135/99 H 130/111 H Pulse Oximetry 95 95 94 11/03/19 20:07 11/03/19 20:40 11/03/19 20:54 Temperature Pulse Rate 106 H 108 H 96 Respiratory Rate 23 H 23 H Blood Pressure Pulse Oximetry 11/03/19 20:56 11/03/19 22:00 11/04/19 00:00 Temperature 36.6 C Pulse Rate 114 H 98 95 Respiratory Rate 21 H 20 21 H Blood Pressu
[2019-11-04 12:54] LABS: Glucose Point of Care 117 (65-105)
--- NOTE | 2019-11-04 13:03 | PC.NURSE ---
Unsuccessful attempts x2 to administer morning medication. Patient currently resting. Appears comfortable. Cardiology and hospitalist aware of medication administration issue. Will continue to monitor.
[2019-11-04] MEDS: ASPIRIN 325 MG TABLET FEED TUBE (14:21)
[2019-11-04] MEDS: METOPROLOL TARTRATE 50 MG TAB 100 MG PO ×2 (14:21→21:24)
[2019-11-04] MEDS: QUEtiapine FUMARATE 12.5 MG TABLET PO ×2 (14:29→21:25)
--- NOTE | 2019-11-04 15:07 | WPDNEURCNPN ---
Assessment and Plan Assessment and plan (1) Encephalopathy: Code(s): G93.40 - Encephalopathy, unspecified Status: Acute (2) Pneumonia: Qualifiers: Pneumonia type: aspiration pneumonia Aspiration pneumonia type: unspecified Laterality: bilateral Lung location: unspecified part of lung Qualified Code(s): J69.0 - Pneumonitis due to inhalation of food and vomit Code(s): J18.9 - Pneumonia, unspecified organism Status: Acute (3) Atrial fibrillation: Code(s): I48.91 - Unspecified atrial fibrillation Status: Acute (4) Respiratory failure: Qualifiers: Chronicity: acute Respiratory failure complication: hypoxia Qualified Code(s): J96.01 - Acute respiratory failure with hypoxia Code(s): J96.90 - Respiratory failure, unspecified, unspecified whether with hypoxia or hypercapnia Status: Acute (5) Pericardial effusion: Code(s): I31.3 - Pericardial effusion (noninflammatory) Status: Acute (6) Anasarca: Code(s): R60.1 - Generalized edema Status: Acute (7) Hypotension: Qualifiers: Hypotension type: unspecified hypotension type Qualified Code(s): I95.9 - Hypotension, unspecified Code(s): I95.9 - Hypotension, unspecified Status: Acute (8) Acute encephalopathy: Code(s): G93.40 - Encephalopathy, unspecified Status: Acute (9) COPD (chronic obstructive pulmonary disease): Qualifiers: COPD type: unspecified COPD Qualified Code(s): J44.9 - Chronic obstructive pulmonary disease, unspecified Code(s): J44.9 - Chronic obstructive pulmonary disease, unspecified Status: Chronic (10) BPH (benign prostatic hyperplasia): Code(s): N40.0 - Benign prostatic hyperplasia without lower urinary tract symptoms Status: Chronic (11) Gallbladder abscess: Code(s): K81.0 - Acute cholecystitis Status: Acute (12) Acute respiratory failure: Qualifiers: Respiratory failure complication: hypoxia Qualified Code(s): J96.01 - Acute respiratory failure with hypoxia Code(s): J96.00 - Acute respiratory failure, unspecified whether with hypoxia or hypercapnia Status: Acute (13) Altered mental status: Qualifiers: Altered mental status type: unspecified Qualified Code(s): R41.82 - Altered mental status, unspecified Code(s): R41.82 - Altered mental status, unspecified Status: Acute (14) Anisocoria: Code(s): H57.02 - Anisocoria Status: Acute Additional Plan at this point from the neurological standpoint I do not have much to offer except to treat her or his underlying medical conditions I do not believe that he is harboring [employer] infection likewise the anisocoria by itself does not make any clinical correlation particularly by the fact that the brain MRI is unremarkable the patient will take a long time to recuperate from this however it is likely that he may be left with some deficit because of history of drinking in the past and showing some evidence of brain atrophy at the age of 69 Consult date: 11/04/19 Time Seen: 14:30 HPI: Lloyd Redman is a 69 year old male who has been in and out of ICU because of multiple medical factors the most predominant 1 is the respiratory failure needing multiple intubation at present he is extubated however the consultation is sought regarding his mental status which obviously is encephalopathic there is no clinical or overt sign of any meningitic process I his either historically or otherwise the patient is follow patient is actually following simple commands awake and alert with the discrepancy only his of the anisocoria which by itself does not make any clinical diagnosis his brain MRI is unremarkable all laboratory analysis were reviewed and the patient was examined in detail with the help of the attending nurse Review of Systems Review of Systems: All systems reviewed & are unremarkable
--- NOTE | 2019-11-04 15:44 | PM.IMPN ---
Progress Note: A&P Assessment and Plan (1) Gallbladder abscess: Code(s): K81.0 - Acute cholecystitis Status: Acute Assessment and Plan: AND with liver abscess (2) Respiratory failure: Qualifiers: Chronicity: acute Respiratory failure complication: hypoxia Qualified Code(s): J96.01 - Acute respiratory failure with hypoxia Code(s): J96.90 - Respiratory failure, unspecified, unspecified whether with hypoxia or hypercapnia Status: Acute Assessment and Plan: Hypoxemic resp failure. Secondary to congestion on iv lasix, continue to monitor bmp (3) Atrial fibrillation: Code(s): I48.91 - Unspecified atrial fibrillation Status: Acute Assessment and Plan: On metoprolol Not a candidate for AC. dilitazem added pt missed some medications earlier as he was going for mri test (4) CHF (congestive heart failure): Qualifiers: Heart failure type: systolic Heart failure chronicity: chronic Qualified Code(s): I50.22 - Chronic systolic (congestive) heart failure Code(s): I50.9 - Heart failure, unspecified Status: Chronic Assessment and Plan: On Lasix IV BID (5) Chronic alcohol use: Code(s): Z72.89 - Other problems related to lifestyle Status: Chronic Assessment and Plan: On thiamine (6) Encephalopathy: Code(s): G93.40 - Encephalopathy, unspecified Status: Acute Assessment and Plan: Pt had stat mri brain (7) Hypokalemia: Code(s): E87.6 - Hypokalemia Status: Acute Assessment and Plan: Potassium corrected with potassium rider Subjective Date/time seen: 11/04/19 15:44 Interval history: Complicated history pt was transfered to ICU from IMU in respiratory distress. Pt respiratory status has improved on RA. pt was more somnolent earlier in the day, mri head was ordered and bc as pt is having ongoing tachycardia and complicated medical history including gi abscesses . neurology consulted, cardiology also rounding for fast af Review of Systems Review of Systems: ROS unobtainable: Yes unobtainable due to medical condition Exam Narrative: Exam Narrative: elderly frail, pt appears very fatigued, chronically ill Chest: Chest palpation & inspection: normal inspection of the chest GI: Auscultation: normal bowel sounds Skin: General skin exam: normal color Lesions: no lesions Rashes: no rashes Trauma: no lacerations or abrasions Wounds: no wounds Hair: normal Nails: normal Neuro: Other: patient is somnolent, holding some conversation sitting up Extrem: General: normal to inspection Right upper extremity: normal to inspection and shoulder/upper arm Left upper extremity: normal to inspection and shoulder/upper arm Right lower extremity: normal to inspection Left lower extremity: normal to inspection Objective Data Vital Signs Vital Signs: Vital Signs - 24 hr 11/03/19 16:00 11/03/19 18:00 11/03/19 20:00 Temperature 36.7 C 37.1 C Pulse Rate 101 H 105 H 110 H Respiratory Rate 24 H 22 H 23 H Blood Pressure 136/112 H 135/99 H 130/111 H Pulse Oximetry 95 95 94 11/03/19 20:07 11/03/19 20:40 11/03/19 20:54 Temperature Pulse Rate 106 H 108 H 96 Respiratory Rate 23 H 23 H Blood Pressure Pulse Oximetry 11/03/19 20:56 11/03/19 22:00 11/04/19 00:00 Temperature 36.6 C Pulse Rate 114 H 98 95 Respiratory Rate 21 H 20 21 H Blood Pressure 131/114 H 154/123 H Pulse Oximetry 98 98 99 11/04/19 02:00 11/04/19 02:50 11/04/19 02:56 Temperature Pulse Rate 96 117 H 103 H Respiratory Rate 18 21 H 23 H Blood Pressure 160/107 H Pulse Oximetry 99 11/04/19 04:00 11/04/19 06:00 11/04/19 08:00 Temperature 36.8 C 36.6 C Pulse Rate 114 H 110 H 112 H Respiratory Rate 18 19 22 H Blood Pressure 166/107 H 136/115 H 152/118 H Pulse Oximetry 98 96 100 11/04/19 09:06 11/04/19 09:15 11/04/19 10:00 Temperature Pulse Rate
[2019-11-04] MEDS: POTASSIUM CHLORIDE 10 MEQ TABLET.ER 40 MEQ PO (17:01)
[2019-11-04 17:42] LABS: Glucose Point of Care 100 (65-105)
--- NOTE | 2019-11-04 21:17 | PM.PNPUL ---
Progress Note: A&P Assessment and Plan (1) Respiratory failure: Qualifiers: Chronicity: acute Respiratory failure complication: hypoxia Qualified Code(s): J96.01 - Acute respiratory failure with hypoxia Code(s): J96.90 - Respiratory failure, unspecified, unspecified whether with hypoxia or hypercapnia Status: Acute Assessment and Plan: (1) Respiratory failure: Assessment and Plan: Recurrent Aspiration Pneumonia/Pneumonitis with difficulty clearing, coughing secretions. - would consider trach and PEG preemptively as he is high risk for recurrent intubation - consider ENT consult for upper endoscopy to look at vocal cords - avoid sedatives and narcotics and anticholinergics - avoid over diuresis, bicarb is climbind and he has signs of contraction alkalosis - chest PT may be temporarily helpful Subjective Date/time seen: 11/04/19 21:17 Interval history: Pt states he feels confused this morning, doesn't know where he's at. Phonation is improving but still weak. Cough is still weak. CXR showing persistent interstitial infiltrates with left retrocardiac dense consolidation Review of Systems Review of Systems: All systems reviewed & are unremarkable except as noted in HPI and below (HPI) ROS unobtainable: Yes unobtainable due to endotracheal tube Exam Narrative: Exam Narrative: Sitting up in a chair Const: General: comfortable and no acute distress Other: sedated, orally intubated Eyes: General: appearance normal, both eyes and all related structures Neck: Neck: supple and no JVD Resp: Auscultation: crackles and diminished lung sounds Other: very poor and weak cough Cardio: Rate: regular rate Rhythm: regular rhythm Heart sounds: no murmurs GI: Inspection: distended Auscultation: normal bowel sounds Urinary Catheter: Urinary Catheter: patent and draining Skin: General skin exam: normal color Neuro: Cognition (Neuro): abnormal cognition Speech: No normal speech (dysphonia and dysphagia ) Other: A bit confused, possibly impaired hearing Objective Data Vital Signs Vital Signs: Vital Signs - 24 hr 11/03/19 22:00 11/04/19 00:00 11/04/19 02:00 Temperature 36.6 C Pulse Rate 98 95 96 Respiratory Rate 20 21 H 18 Blood Pressure 131/114 H 154/123 H 160/107 H Pulse Oximetry 98 99 99 11/04/19 02:50 11/04/19 02:56 11/04/19 04:00 Temperature 36.8 C Pulse Rate 117 H 103 H 114 H Respiratory Rate 21 H 23 H 18 Blood Pressure 166/107 H Pulse Oximetry 98 11/04/19 06:00 11/04/19 08:00 11/04/19 09:06 Temperature 36.6 C Pulse Rate 110 H 112 H 115 H Respiratory Rate 19 22 H 23 H Blood Pressure 136/115 H 152/118 H Pulse Oximetry 96 100 95 11/04/19 09:15 11/04/19 10:00 11/04/19 12:00 Temperature 36.5 C Pulse Rate 113 H 116 H 106 H Respiratory Rate 23 H 22 H 20 Blood Pressure 158/103 H 129/92 H Pulse Oximetry 100 100 11/04/19 14:00 11/04/19 14:21 11/04/19 14:45 Temperature Pulse Rate 120 H 120 H 113 H Respiratory Rate 24 H 23 H Blood Pressure 153/112 H Pulse Oximetry 97 11/04/19 14:55 11/04/19 16:00 11/04/19 17:56 Temperature 36.4 C L Pulse Rate 115 H 114 H 101 H Respiratory Rate 23 H 20 Blood Pressure 128/104 H Pulse Oximetry 99 11/04/19 18:00 11/04/19 19:01 11/04/19 19:10 Temperature Pulse Rate 102 H 93 86 Respiratory Rate 22 H 18 21 H Blood Pressure 116/84 Pulse Oximetry 94 97 11/04/19 19:24 Temperature Pulse Rate 91 Respiratory Rate 23 H Blood Pressure Pulse Oximetry Intake/Output Intake/Output: Intake & Output 11/01/19 11/02/19 11/03/19 11/04/19 23:59 23:59 23:59 23:59 Intake Total 1150 1365.01 601.8 670 Output Total 2165 3625 [address] [facility] -1015 -2309.99 -3148.2 -2655 Meds/Results Medications: Active Medications Generic Name Dose Route Start Last Admin Trade Name Freq PRN Reason Stop Dose Admin Acetaminophen 650 mg 10/10/19 11:24 10/10/19 12:18 Tylenol Tablet PO
[2019-11-04 21:24] LABS: Potassium 3.9 mmol/L (3.4-5.0)
[2019-11-04] MEDS: TIMOLOL MALEATE 0.5% OP SOLN 5 ML BTL 1 DROP EACH EYE (21:25)
[2019-11-04 23:51] LABS: Glucose Point of Care 110 (65-105)
[2019-11-05] VITALS (24 sets, daily range): BP systolic 108–145; BP diastolic 70–101; PULSE 82–114; RESP 12–26; TEMP 36.4–36.7; O2SAT 93–100
[2019-11-05] MEDS: IPRATROPIUM BR 0.02% INH SOLN 0.5 MG/2.5 ML VIAL INHALATION ×4 (02:02→20:54)
[2019-11-05 04:12] LABS: Anion Gap 7.7 mmol/L (7-16); Blood Urea Nitrogen 18 mg/dL (9-20); Carbon Dioxide 34 mmol/L (22-30); Chloride 102 mmol/L (98-107); Estimated CRCL calculation 119 ml/min; Estimated Glomerular Filt Rate > 60; Glucose 95 mg/dL (75-110); Potassium 3.7 mmol/L (3.4-5.0); Sodium 140 mmol/L (137-145)
[2019-11-05 05:51] LABS: Glucose Point of Care 82 (65-105)
[2019-11-05] MEDS: CENTRAL LINE FLUSH 10 ML IV PUSH ×3 (05:51→21:29)
[2019-11-05] MEDS: ASPIRIN 325 MG TABLET FEED TUBE (09:22)
[2019-11-05] MEDS: FOLIC ACID 1 MG TABLET PO (09:25)
[2019-11-05] MEDS: FUROSEMIDE INJ 40 MG/4 ML VIAL IV PUSH ×2 (09:25→17:00)
[2019-11-05] MEDS: ENOXAPARIN 40 MG/0.4 ML SYRINGE SUB-Q (09:25)
[2019-11-05] MEDS: POTASSIUM CHLORIDE 10 MEQ TABLET.ER 40 MEQ PO ×2 (09:25→17:00)
[2019-11-05] MEDS: PANTOPRAZOLE SODIUM IV 40 MG VIAL IV PUSH (09:26)
[2019-11-05] MEDS: METOPROLOL TARTRATE 50 MG TAB 100 MG PO ×2 (09:26→21:29)
[2019-11-05] MEDS: MULTIVITAMINS THERAPEUTIC TAB (*BKC) 1 TABLET PO (09:26)
[2019-11-05] MEDS: THIAMINE HCL 100 MG TABLET PO (09:26)
[2019-11-05] MEDS: TIMOLOL MALEATE 0.5% OP SOLN 5 ML BTL 1 DROP EACH EYE ×2 (09:27→21:29)
[2019-11-05 09:37] LABS: Glucose Point of Care 80 (65-105)
[2019-11-05] MEDS: DORNASE ALFA INH SOLN 1 MG/ML 2.5 ML AMP 2.5 MG INHALATION ×2 (10:09→20:54)
--- NOTE | 2019-11-05 10:50 | PM.PNCARD ---
Progress Note: A&P Assessment and Plan (1) Afib: Qualifiers: Atrial fibrillation type: unspecified Qualified Code(s): I48.91 - Unspecified atrial fibrillation Code(s): I48.91 - Unspecified atrial fibrillation Status: Acute Assessment and Plan: Of unknown duration when first seen in July of this year. At that time he was difficult to control. Was on a significant dose of diltiazem along with carvedilol. Admitted with abdominal pain, acute cholecystitis and hepatic abcesses and elevated heart rates. Not a candidate for anticoagulation due to his alcohol abuse and reported falling. Continue aspirin 325 mg Heart rates better controlled this morning Continiue Metoprolol tartrate 100 mg q 12 hours and Diltiazem CD 240 mg daily . (2) Essential hypertension: Code(s): I10 - Essential (primary) hypertension Status: Chronic Assessment and Plan: Better controlled. Meds as above. (3) COPD (chronic obstructive pulmonary disease): Qualifiers: COPD type: unspecified COPD Qualified Code(s): J44.9 - Chronic obstructive pulmonary disease, unspecified Code(s): J44.9 - Chronic obstructive pulmonary disease, unspecified Status: Chronic Assessment and Plan: Management per hospitalist (4) Hypokalemia: Code(s): E87.6 - Hypokalemia Status: Acute Assessment and Plan: Supplementing. Potassium 3.7 this morning. Continue to monitor closely and supplement (5) CHF (congestive heart failure): Qualifiers: Heart failure type: systolic Heart failure chronicity: chronic Qualified Code(s): I50.22 - Chronic systolic (congestive) heart failure Code(s): I50.9 - Heart failure, unspecified Status: Chronic Assessment and Plan: Acute on chronic systolic Volume overloaded. Continue IV Lasix. Monitor electrolytes and renal function closely. Additional Plan Plan discussed with Dr Moore 11:00 11/05/2019 Subjective Date/time seen: 11/05/19 10:50 Interval history: Follow-up for: Atrial fibrillation with rapid ventricular response, mild LV dysfunction, history hypertension Date of service: 11/05/2019 Subjective: Awake. Cooperative. Calm. Denied pain. States his breathing is better. No abdominal pain. Review of Systems Constitutional: Constitutional: Denies chills Eyes: Eyes: Denies blurry vision ENT: Reports dysphagia and Denies dizziness Cardiovascular: Cardiovascular: Denies chest pain, Denies pedal edema, Denies leg edema, Denies lightheadedness and Reports dyspnea on exertion Respiratory: Respiratory: Reports cough and Reports dyspnea on exertion Gastrointestinal: Gastrointestinal: Denies abdominal pain, Denies nausea and Denies vomiting Genitourinary: Genitourinary: Denies hematuria Musculoskeletal: Musculoskeletal: Denies back pain and Denies myalgias Integumentary/Breasts: Skin/Breast: Denies pruritus and Denies rash Neurologic: Denies dizziness, Reports frequent falls and Reports weakness Psychiatric: Psychiatric: Denies anxiety Endocrine: Endocrine: Denies fatigue Hematologic/Lymphatic: Hematologic/Lymphatic: Denies easy bruising Allergic/Immunologic: Allergic/Immunologic: Denies throat swelling and Denies tongue swelling Exam Const: General: comfortable and no acute distress Nutritional Appearance: average body habitus Other: Chronically ill appearing. Calm and alert this morning HENMT: Mouth: Yes dry mucous membranes Eyes: Sclera: sclerae normal Pupils: Other pupil findings (right pupil smaller than left) Neck: Neck: supple Other: Right IJ tripple lumen Resp: Effort & Inspection: normal respiratory effort Auscultation: diminished lung sounds bilateral in the lower lung herrera Cardio: Rate: tachycardic Rhythm: abn
[2019-11-05] MEDS: QUEtiapine FUMARATE 12.5 MG TABLET PO ×2 (11:26→21:29)
[2019-11-05 12:03] LABS: Glucose Point of Care 120 (65-105)
--- NOTE | 2019-11-05 13:40 | PCDIET ---
Nutrition Follow-Up Complete: Nutrition Diagnosis: Inadequate oral intake related to multiple medical issues as evidenced by NPO diet, previous meal refusals on advanced diet. Nutrition Goal: Patient to meet estimated needs Goal not met. Patient consumed 0-30% of meals yesterday and remains confused. Diet is heart healthy, pureed, with level 3 liquids and Ensure Compact TID. Noted pulmonology is considering ENT consult for preemptive PEG/trach. Last recorded weight is 91.1 kg which is significantly decreased from last review. -I/O with significant urine output. Would still reweigh to ensure accuracy. Bowel Motility: +BM today. Labs Reviewed: Cr (0.6) Meds Noted: Folic Acid, Atrovent, MVI, Protonix, Lasix, Novolog, Xopenex, Miralax, KCl, Thiamine Additional Notes: Buttock ulcers and abdominal drain present. Will follow closely for plan of care. If intakes do not improve, recommend discussing PEG for nutrition, even if trach deemed unnecessary. Nutrition Monitoring and Evaluation: Follow up in 3 days.
--- NOTE | 2019-11-05 15:50 | PCOTNOTE ---
Attempted to see pt this P.M. RN stated that Pt just got into bed, that he was sitting up in the chair for 2hrs prior, and to come back later. Therapist stated that if time permits will see pt at a later time on this date.
[2019-11-05 16:38] LABS: Glucose Point of Care 120 (65-105)
--- NOTE | 2019-11-05 17:22 | PM.IMPN ---
Progress Note: A&P Assessment and Plan (1) Gallbladder abscess: Code(s): K81.0 - Acute cholecystitis Status: Acute Assessment and Plan: AND with liver abscess (2) Respiratory failure: Qualifiers: Chronicity: acute Respiratory failure complication: hypoxia Qualified Code(s): J96.01 - Acute respiratory failure with hypoxia Code(s): J96.90 - Respiratory failure, unspecified, unspecified whether with hypoxia or hypercapnia Status: Acute Assessment and Plan: Hypoxemic resp failure. On iv lasix (3) Atrial fibrillation: Code(s): I48.91 - Unspecified atrial fibrillation Status: Acute Assessment and Plan: On metoprolol Not a candidate for AC. dilitazem added (4) CHF (congestive heart failure): Qualifiers: Heart failure type: systolic Heart failure chronicity: chronic Qualified Code(s): I50.22 - Chronic systolic (congestive) heart failure Code(s): I50.9 - Heart failure, unspecified Status: Chronic Assessment and Plan: Diuresis with iv lasix (5) Chronic alcohol use: Code(s): Z72.89 - Other problems related to lifestyle Status: Chronic Assessment and Plan: On thiamine (6) Encephalopathy: Code(s): G93.40 - Encephalopathy, unspecified Status: Acute Assessment and Plan: Pt had stat mri brain (7) Hypokalemia: Code(s): E87.6 - Hypokalemia Status: Acute Assessment and Plan: Potassium corrected with potassium rider Subjective Date/time seen: 11/05/19 17:22 Interval history: Complicated history pt was transfered to ICU from IMU in respiratory distress. Pt respiratory status has improved on RA. pt was more somnolent earlier in the day, mri head was ordered and bc as pt is having ongoing tachycardia and complicated medical history including gi abscesses . neurology consulted, cardiology also rounding for fast af. Pt looks alot better today sitting up holding some conversation, chronically ill and deteriorated. Review of Systems Review of Systems: All systems reviewed & are unremarkable except as noted in HPI and below Exam Narrative: Exam Narrative: elderly frail, pt appears very fatigued, chronically ill Chest: Chest palpation & inspection: normal inspection of the chest Resp: Effort & Inspection: normal respiratory effort Auscultation: diminished lung sounds Percussion: percussion normal Cardio: Palpation: normal PMI Rate: regular rate and other Rhythm: regular rhythm Heart sounds: S1 normal heart sound present and S2 normal heart sound present Peripheral pulses: Peripheral pulses 2+ throughout Neuro: Other: patient is somnolent, holding some conversation sitting up Objective Data Vital Signs Vital Signs: Vital Signs - 24 hr 11/04/19 17:56 11/04/19 18:00 11/04/19 19:01 Temperature Pulse Rate 101 H 102 H 93 Respiratory Rate 22 H 18 Blood Pressure 116/84 Pulse Oximetry 94 97 11/04/19 19:10 11/04/19 19:24 11/04/19 20:00 Temperature 36.4 C Pulse Rate 86 91 95 Respiratory Rate 21 H 23 H 20 Blood Pressure 119/80 Pulse Oximetry 96 11/04/19 22:00 11/05/19 00:00 11/05/19 02:00 Temperature 36.6 C Pulse Rate 98 98 94 Respiratory Rate 16 12 16 Blood Pressure 132/89 132/98 H 145/97 H Pulse Oximetry 99 98 96 11/05/19 02:02 11/05/19 02:08 11/05/19 04:00 Temperature 36.6 C Pulse Rate 108 H 102 H 99 Respiratory Rate 23 H 18 19 Blood Pressure 122/94 H Pulse Oximetry 98 11/05/19 06:00 11/05/19 08:00 11/05/19 09:26 Temperature 36.7 C Pulse Rate 95 105 H 106 H Respiratory Rate 15 16 Blood Pressure 125/85 134/86 Pulse Oximetry 99 100 11/05/19 10:00 11/05/19 10:08 11/05/19 10:10 Temperature Pulse Rate 108 H 102 H Respiratory Rate 24 H 21 H Blood Pressure 142/83 H Pulse Oximetry 98 95 11/05/19 10:30 11/05/19 12:00 11/05/19 14:00 Temperature 36.5 C Pulse Rate 102 H 10
--- NOTE | 2019-11-05 18:28 | PC.NURSE ---
This patient, Lloyd Redman, was transferred to [[facility]] on 11/05/19 at 1828. Personal belongings sent with patient. Report given to [Anastasia]. Appropriate documentation sent with patient.
[2019-11-05 18:30] LABS: Procalcitonin <0.10 ng/mL (<0.10)
[2019-11-06] VITALS (23 sets, daily range): BP systolic 123–133; BP diastolic 79–96; PULSE 87–117; RESP 18–24; TEMP 36.2–36.7; O2SAT 90–97
[2019-11-06 00:48] LABS: Glucose Point of Care 119 (65-105)
[2019-11-06] MEDS: IPRATROPIUM BR 0.02% INH SOLN 0.5 MG/2.5 ML VIAL INHALATION ×4 (02:29→20:39)
[2019-11-06] MEDS: CENTRAL LINE FLUSH 10 ML IV PUSH ×3 (06:47→20:24)
[2019-11-06] MEDS: CENTRAL LINE FLUSH 20 ML IV PUSH (06:47)
[2019-11-06 06:48] LABS: Glucose Point of Care 104 (65-105)
[2019-11-06 07:04] LABS: Anion Gap 6.5 mmol/L (7-16); Blood Urea Nitrogen 20 mg/dL (9-20); Calcium 9.2 mg/dL (8.4-10.2); Carbon Dioxide 33 mmol/L (22-30); Chloride 104 mmol/L (98-107); Estimated CRCL calculation 90 ml/min; Estimated Glomerular Filt Rate > 60; Glucose 109 mg/dL (75-110); Potassium 3.5 mmol/L (3.4-5.0); Sodium 140 mmol/L (137-145)
[2019-11-06] MEDS: DORNASE ALFA INH SOLN 1 MG/ML 2.5 ML AMP 2.5 MG INHALATION ×2 (08:39→20:38)
[2019-11-06] MEDS: POTASSIUM CHLORIDE 10 MEQ TABLET.ER 40 MEQ PO (10:08)
[2019-11-06] MEDS: METOPROLOL TARTRATE 50 MG TAB 100 MG PO ×2 (10:09→20:23)
[2019-11-06] MEDS: ASPIRIN 325 MG TABLET FEED TUBE (10:09)
[2019-11-06] MEDS: MULTIVITAMINS THERAPEUTIC TAB (*BKC) 1 TABLET PO (10:09)
[2019-11-06] MEDS: QUEtiapine FUMARATE 12.5 MG TABLET PO ×2 (10:09→20:23)
[2019-11-06] MEDS: THIAMINE HCL 100 MG TABLET PO (10:09)
[2019-11-06] MEDS: ENOXAPARIN 40 MG/0.4 ML SYRINGE SUB-Q (10:10)
[2019-11-06] MEDS: FUROSEMIDE INJ 40 MG/4 ML VIAL IV PUSH (10:10)
[2019-11-06] MEDS: FOLIC ACID 1 MG TABLET PO (10:10)
[2019-11-06] MEDS: TIMOLOL MALEATE 0.5% OP SOLN 5 ML BTL 1 DROP EACH EYE ×2 (10:10→20:23)
[2019-11-06] MEDS: PANTOPRAZOLE SODIUM IV 40 MG VIAL IV PUSH (10:10)
--- NOTE | 2019-11-06 11:47 | PM.PNCARD ---
Progress Note: A&P Assessment and Plan (1) Afib: Qualifiers: Atrial fibrillation type: unspecified Qualified Code(s): I48.91 - Unspecified atrial fibrillation Code(s): I48.91 - Unspecified atrial fibrillation Status: Acute Assessment and Plan: Accepting atrial fibrillation with rate control strategy. Not a candidate for anticoagulation due to his alcohol abuse and reported falling. Continue aspirin 325 mg Heart rates nicely controlled on current regimen. Continiue Metoprolol tartrate 100 mg q 12 hours and Diltiazem CD 240 mg daily . (2) Essential hypertension: Code(s): I10 - Essential (primary) hypertension Status: Chronic Assessment and Plan: Better controlled. Meds as above. (3) COPD (chronic obstructive pulmonary disease): Qualifiers: COPD type: unspecified COPD Qualified Code(s): J44.9 - Chronic obstructive pulmonary disease, unspecified Code(s): J44.9 - Chronic obstructive pulmonary disease, unspecified Status: Chronic Assessment and Plan: Management per hospitalist (4) Hypokalemia: Code(s): E87.6 - Hypokalemia Status: Acute Assessment and Plan: Supplementing. Potassium 3.5 this morning. Decrease oral potassium to 40 mEq in the morning. (5) CHF (congestive heart failure): Qualifiers: Heart failure chronicity: chronic Heart failure type: systolic Qualified Code(s): I50.22 - Chronic systolic (congestive) heart failure Code(s): I50.9 - Heart failure, unspecified Status: Chronic Assessment and Plan: Acute on chronic systolic Appears euvolemic. Lungs are clear. He is on room air. No edema. Decrease furosemide to 40 mg daily p.o.. Additional Plan Plan discussed with Dr. Monahan 12:00 p.m. 11/06/2019 Subjective Date/time seen: 11/06/19 11:47 Interval history: Follow-up for: Atrial fibrillation with rapid ventricular response, mild LV dysfunction, history hypertension Date of service: 11/06/2019 Subjective: Up in chair. Denied pain. Denied shortness of breath or lightheadedness. Review of Systems Constitutional: Constitutional: Denies chills, Denies fatigue, Reports frequent falls and Reports weakness Eyes: Eyes: Reports loss of vision ENT: Reports dysphagia, Denies dizziness, Denies throat swelling and Denies tongue swelling Cardiovascular: Cardiovascular: Denies chest pain, Denies pedal edema, Denies leg edema, Denies lightheadedness and Denies dyspnea on exertion Respiratory: Respiratory: Reports cough and Denies dyspnea on exertion Gastrointestinal: Gastrointestinal: Denies abdominal pain, Reports dysphagia, Denies nausea and Denies vomiting Genitourinary: Genitourinary: Denies hematuria Musculoskeletal: Musculoskeletal: Denies back pain and Denies myalgias Integumentary/Breasts: Skin/Breast: Denies pruritus and Denies rash Neurologic: Denies dizziness, Reports frequent falls and Reports weakness Psychiatric: Psychiatric: Denies anxiety Endocrine: Endocrine: Denies fatigue Hematologic/Lymphatic: Hematologic/Lymphatic: Denies easy bruising Allergic/Immunologic: Allergic/Immunologic: Denies throat swelling and Denies tongue swelling Exam Const: General: cooperative, comfortable and no acute distress Nutritional Appearance: average body habitus Other: Chronically ill appearing. Alert and conversational this morning HENMT: Head: normocephalic and atraumatic Ears: hearing grossly impaired Mouth: Yes dry mucous membranes Eyes: Sclera: sclerae normal Pupils: Other pupil findings (right pupil smaller than left) Neck: Neck: supple Other: Right IJ tripple lumen Resp: Effort & Inspection: normal respiratory effort and able to speak in complete sentences Auscultation: clear to auscultation
[2019-11-06 12:41] LABS: Glucose Point of Care 135 (65-105)
--- NOTE | 2019-11-06 13:38 | PCDIET ---
Nutrition Follow-Up Complete: Nutrition Diagnosis: Inadequate oral intake related to multiple medical issues as evidenced by NPO diet, previous meal refusals on advanced diet. Nutrition Goal: Patient to meet estimated needs. Goal not met. Intakes generally 0-25% of meals on heart healthy, pureed diet with level 3 liquids and Ensure Compact TID. Recommend changing supplement from Ensure Compact to Ensure Enlive TID and liberalizing to low sodium diet. If decision to place PEG is made, would be very appropriate for supplemental feedings. Last recorded weight is 85.7 kg which is down from last review. -I/O noted. Likely losing actual weight, along with diuresis. Bowel Motility: Last documented BM on 11/05/19. Labs Reviewed: Glu (119) Meds Noted: Folic Acid, Lasix, Novolog, Atrovent, Xopenex, MVI/minerals, Miralax, KCl, Seroquel, Thiamine Additional Notes: Still with abdominal drain and buttock ulcers. Ensure Enlive provides 350kcal and 19g protein each. Will follow closely for plan of care. Nutrition Monitoring and Evaluation: Follow up in 3 days.
--- NOTE | 2019-11-06 15:11 | PM.IMPN ---
Progress Note: A&P Assessment and Plan (1) Gallbladder abscess: Code(s): K81.0 - Acute cholecystitis Status: Acute Assessment and Plan: AND with liver abscess (2) Respiratory failure: Qualifiers: Chronicity: acute Respiratory failure complication: hypoxia Qualified Code(s): J96.01 - Acute respiratory failure with hypoxia Code(s): J96.90 - Respiratory failure, unspecified, unspecified whether with hypoxia or hypercapnia Status: Acute Assessment and Plan: Hypoxemic resp failure. On oral lasix (3) Atrial fibrillation: Code(s): I48.91 - Unspecified atrial fibrillation Status: Acute Assessment and Plan: On metoprolol Not a candidate for AC. dilitazem added (4) CHF (congestive heart failure): Qualifiers: Heart failure type: systolic Heart failure chronicity: chronic Qualified Code(s): I50.22 - Chronic systolic (congestive) heart failure Code(s): I50.9 - Heart failure, unspecified Status: Chronic Assessment and Plan: Diuresis with oral lasix (5) Chronic alcohol use: Code(s): Z72.89 - Other problems related to lifestyle Status: Chronic Assessment and Plan: On thiamine (6) Encephalopathy: Code(s): G93.40 - Encephalopathy, unspecified Status: Resolved Assessment and Plan: Pt had stat mri brain few days ago (7) Hypokalemia: Code(s): E87.6 - Hypokalemia Status: Resolved Assessment and Plan: Potassium corrected with potassium rider Subjective Date/time seen: 11/06/19 15:11 Interval history: Complicated history pt was transfered to ICU from IMU in respiratory distress. Pt respiratory status has improved on RA. pt was more somnolent earlier in the day, mri head was ordered and bc as pt is having ongoing tachycardia and complicated medical history including gi abscesses . neurology consulted, cardiology also rounding for fast af. Pt looks alot better today sitting up holding some conversation, chronically ill and deteriorated. Hopegul dischrage on saturday pt needs COVID test prior to discharge. Review of Systems Review of Systems: All systems reviewed & are unremarkable except as noted in HPI and below Exam Narrative: Exam Narrative: elderly frail, pt appears very fatigued, chronically ill Const: General: comfortable and no acute distress Orientation/consciousness: oriented to person, oriented to place, oriented to time and patient oriented x3 Limitations: no limitations Resp: Effort & Inspection: normal respiratory effort Auscultation: diminished lung sounds Percussion: percussion normal Cardio: Palpation: normal PMI Rate: regular rate and other Rhythm: regular rhythm Heart sounds: S1 normal heart sound present and S2 normal heart sound present Peripheral pulses: Peripheral pulses 2+ throughout Other: RRR GI: Auscultation: normal bowel sounds Rectal Exam: deferred Back/Spine/Pelvis: Back: no CVA tenderness Cervical Spine: cervical ROM normal Thoracic/Lumbar Spine: thoracic and lumbar spine normal to inspection Pelvis: no pain with anterior-posterior compression Skin: General skin exam: normal color Lesions: no lesions Rashes: no rashes Trauma: no lacerations or abrasions Wounds: no wounds Hair: normal Nails: normal Neuro: General: oriented to person, oriented to place, oriented to time, patient oriented x3 and Unable to assess gait Cranial nerves: Yes Equal, round and reactive pupils present and Yes Normal hearing present Cognition (Neuro): normal cognition Speech: normal speech Gait exam (Neuro): Unable to assess gait Sensory Exam: normal sensation Other: patient is somnolent, holding some conversation sitting up Extrem: General: normal to inspection Right upper extremity: normal to inspection and shoulder/upper arm Left upper extremity: normal to inspection and shoulder/upper arm Right lower extremity: normal to inspecti
--- NOTE | 2019-11-06 16:28 | WPDNEUROPN ---
Progress Note: A&P Assessment and Plan (1) Anisocoria: Code(s): H57.02 - Anisocoria Status: Acute (2) Encephalopathy: Code(s): G93.40 - Encephalopathy, unspecified Status: Resolved (3) Pneumonia: Qualifiers: Pneumonia type: aspiration pneumonia Aspiration pneumonia type: unspecified Laterality: bilateral Lung location: unspecified part of lung Qualified Code(s): J69.0 - Pneumonitis due to inhalation of food and vomit Code(s): J18.9 - Pneumonia, unspecified organism Status: Acute (4) Atrial fibrillation: Code(s): I48.91 - Unspecified atrial fibrillation Status: Acute (5) Respiratory failure: Qualifiers: Chronicity: acute Respiratory failure complication: hypoxia Qualified Code(s): J96.01 - Acute respiratory failure with hypoxia Code(s): J96.90 - Respiratory failure, unspecified, unspecified whether with hypoxia or hypercapnia Status: Acute (6) Pericardial effusion: Code(s): I31.3 - Pericardial effusion (noninflammatory) Status: Acute (7) Acute encephalopathy: Code(s): G93.40 - Encephalopathy, unspecified Status: Acute (8) Ileus: Code(s): K56.7 - Ileus, unspecified Status: Acute (9) COPD (chronic obstructive pulmonary disease): Qualifiers: COPD type: unspecified COPD Qualified Code(s): J44.9 - Chronic obstructive pulmonary disease, unspecified Code(s): J44.9 - Chronic obstructive pulmonary disease, unspecified Status: Chronic (10) Gallbladder abscess: Code(s): K81.0 - Acute cholecystitis Status: Acute Additional Plan continue present medical management we will follow periodically Review of Systems Review of Systems: All systems reviewed & are unremarkable except as noted in HPI and below Exam Const: General: comfortable and no acute distress HENMT: General nose exam: Normal nares present Mouth: Yes moist mucous membranes Eyes: General: appearance normal, both eyes and all related structures Neck: Neck: supple and no JVD Resp: Effort & Inspection: normal respiratory effort Auscultation: clear to auscultation bilaterally Cardio: Rate: regular rate Rhythm: regular rhythm GI: Auscultation: normal bowel sounds Neuro: Other: the encephalopathic picture is relatively better than before Extrem: General: normal to inspection Psych: Other: slightly improved encephalopathic state Objective Data Vital Signs Vital Signs: Vital Signs - 24 hr 11/05/19 18:00 11/05/19 20:00 11/05/19 21:00 Temperature 36.6 C Pulse Rate 102 H 105 H 86 Respiratory Rate 26 H 18 18 Blood Pressure 118/94 H 122/85 Pulse Oximetry 96 93 11/05/19 21:04 11/05/19 21:18 11/05/19 21:29 Temperature Pulse Rate 100 106 H Respiratory Rate 18 Blood Pressure Pulse Oximetry 97 11/05/19 22:00 11/06/19 00:00 11/06/19 02:00 Temperature 36.4 C L Pulse Rate 108 H 109 H 103 H Respiratory Rate 20 Blood Pressure 131/82 Pulse Oximetry 93 11/06/19 02:32 11/06/19 02:42 11/06/19 04:00 Temperature 36.7 C Pulse Rate 89 96 104 H Respiratory Rate 18 18 18 Blood Pressure 123/85 Pulse Oximetry 93 11/06/19 06:00 11/06/19 08:00 11/06/19 08:41 Temperature 36.2 C L Pulse Rate 101 H 102 H 100 Respiratory Rate 20 20 Blood Pressure 128/94 H Pulse Oximetry 93 91 11/06/19 08:52 11/06/19 10:00 11/06/19 10:09 Temperature Pulse Rate 96 111 H 96 Respiratory Rate 20 Blood Pressure Pulse Oximetry 11/06/19 12:00 11/06/19 14:00 11/06/19 14:51 Temperature 36.6 C Pulse Rate 103 H 115 H 104 H Respiratory Rate 20 20 Blood Pressure Pulse Oximetry 96 11/06/19 14:58 Temperature Pulse Rate 100 Respiratory Rate 20 Blood Pressure Pulse Oximetry Intake/Output Intake/Output: Intake & Output 11/03/19 11/04/19 11/05/19 11/06/19 23:59 23:59 23:59 23:59 Intake Total 601.8 670 220 Output Total 3
[2019-11-06 16:53] LABS: Glucose Point of Care 114 (65-105)
[2019-11-06 20:54] LABS: Glucose Point of Care 115 (65-105)
[2019-11-07] VITALS (26 sets, daily range): BP systolic 125–145; BP diastolic 80–94; PULSE 78–115; RESP 16–22; TEMP 35.8–36.9; O2SAT 92–94
[2019-11-07] MEDS: IPRATROPIUM BR 0.02% INH SOLN 0.5 MG/2.5 ML VIAL INHALATION ×4 (02:30→21:15)
[2019-11-07] MEDS: CENTRAL LINE FLUSH 20 ML IV PUSH (05:20)
[2019-11-07] MEDS: CENTRAL LINE FLUSH 10 ML IV PUSH ×3 (05:20→21:25)
[2019-11-07 05:58] LABS: Anion Gap 9.4 mmol/L (7-16); Blood Urea Nitrogen 21 mg/dL (9-20); Carbon Dioxide 31 mmol/L (22-30); Chloride 105 mmol/L (98-107); Estimated CRCL calculation 103 ml/min; Estimated Glomerular Filt Rate > 60; Glucose 102 mg/dL (75-110); Magnesium 1.9 mg/dL (1.6-2.3); Potassium 3.4 mmol/L (3.4-5.0); Sodium 142 mmol/L (137-145)
[2019-11-07] MEDS: DORNASE ALFA INH SOLN 1 MG/ML 2.5 ML AMP 2.5 MG INHALATION ×2 (07:49→21:15)
[2019-11-07 08:12] LABS: Glucose Point of Care 108 (65-105)
[2019-11-07] MEDS: METOPROLOL TARTRATE 50 MG TAB 100 MG PO ×2 (08:39→21:24)
[2019-11-07] MEDS: MULTIVITAMINS THERAPEUTIC TAB (*BKC) 1 TABLET PO (08:39)
[2019-11-07] MEDS: QUEtiapine FUMARATE 12.5 MG TABLET PO ×2 (08:39→21:24)
[2019-11-07] MEDS: polyethylene glycoL 3350 17 GM POWD.PACK PO (08:39)
[2019-11-07] MEDS: THIAMINE HCL 100 MG TABLET PO (08:39)
[2019-11-07] MEDS: POTASSIUM CHLORIDE 10 MEQ TABLET.ER 40 MEQ PO (08:40)
[2019-11-07] MEDS: FOLIC ACID 1 MG TABLET PO (08:40)
[2019-11-07] MEDS: ASPIRIN 325 MG TABLET FEED TUBE (08:40)
[2019-11-07] MEDS: PANTOPRAZOLE SODIUM IV 40 MG VIAL IV PUSH (08:41)
[2019-11-07] MEDS: ENOXAPARIN 40 MG/0.4 ML SYRINGE SUB-Q (08:41)
[2019-11-07] MEDS: FUROSEMIDE 40 MG TABLET PO (08:41)
[2019-11-07] MEDS: TIMOLOL MALEATE 0.5% OP SOLN 5 ML BTL 1 DROP EACH EYE ×2 (08:41→21:25)
--- NOTE | 2019-11-07 10:16 | PM.PNCARD ---
Progress Note: A&P Assessment and Plan (1) Afib: Qualifiers: Atrial fibrillation type: unspecified Qualified Code(s): I48.91 - Unspecified atrial fibrillation Code(s): I48.91 - Unspecified atrial fibrillation Status: Acute Assessment and Plan: Accepting atrial fibrillation with rate control strategy. Not a candidate for anticoagulation due to his alcohol abuse and reported falling. Continue aspirin 325 mg Heart rates nicely controlled on current regimen. Continiue Metoprolol tartrate 100 mg q 12 hours and Diltiazem CD 240 mg daily . (2) Essential hypertension: Code(s): I10 - Essential (primary) hypertension Status: Chronic Assessment and Plan: Better controlled. Meds as above. (3) COPD (chronic obstructive pulmonary disease): Qualifiers: COPD type: unspecified COPD Qualified Code(s): J44.9 - Chronic obstructive pulmonary disease, unspecified Code(s): J44.9 - Chronic obstructive pulmonary disease, unspecified Status: Chronic Assessment and Plan: Management per hospitalist (4) Hypokalemia: Code(s): E87.6 - Hypokalemia Status: Resolved Assessment and Plan: Supplementing. additional KCL 20 mg p.o. x1. (5) CHF (congestive heart failure): Qualifiers: Heart failure type: systolic Heart failure chronicity: chronic Qualified Code(s): I50.22 - Chronic systolic (congestive) heart failure Code(s): I50.9 - Heart failure, unspecified Status: Chronic Assessment and Plan: Acute on chronic systolic Appears euvolemic. Lungs are clear. He is on room air. No edema. Decrease furosemide to 40 mg daily p.o.. CXR tomorrow. Furosemide 20 mg IV x1 Subjective Date/time seen: 11/07/19 10:16 Interval history: Follow-up for: Atrial fibrillation with rapid ventricular response, mild LV dysfunction, history hypertension Date of service: 11/06/2019 Subjective: Up in chair. Denied pain. Denied shortness of breath or lightheadedness. Review of Systems Review of Systems: All systems reviewed & are unremarkable except as noted in HPI and below Constitutional: Constitutional: Denies body ache(s), Denies chills, Denies fatigue, Reports frequent falls, Denies headache(s) and Reports weakness Eyes: Eyes: Reports loss of vision ENT: Reports dysphagia, Denies dizziness, Denies headache(s), Denies epistaxis, Denies neck pain, Denies throat swelling and Denies tongue swelling Cardiovascular: Cardiovascular: Denies chest pain, Denies pedal edema, Denies leg edema, Denies lightheadedness, Reports dyspnea and Denies dyspnea on exertion Respiratory: Respiratory: Reports cough, Reports dyspnea and Denies dyspnea on exertion Gastrointestinal: Gastrointestinal: Denies abdominal pain, Reports dysphagia, Denies nausea and Denies vomiting Genitourinary: Genitourinary: Denies hematuria Musculoskeletal: Musculoskeletal: Denies back pain, Denies myalgias and Denies neck pain Integumentary/Breasts: Skin/Breast: Denies dry skin, Denies pruritus and Denies rash Neurologic: Denies dizziness, Reports frequent falls, Denies headache(s), Reports loss of vision and Reports weakness Psychiatric: Psychiatric: Denies anxiety Endocrine: Endocrine: Denies fatigue Hematologic/Lymphatic: Hematologic/Lymphatic: Denies easy bruising Allergic/Immunologic: Allergic/Immunologic: Denies throat swelling and Denies tongue swelling Exam Const: General: cooperative, comfortable and no acute distress Nutritional Appearance: average body habitus Orientation/consciousness: patient oriented x3 Other: Chronically ill appearing. Alert and conversational this morning HENMT: Head: normocephalic and atraumatic Ears: hearing grossly impaired Mouth: Yes dry mucous membranes Eyes: Sc
[2019-11-07] MEDS: POTASSIUM CHLORIDE 20 MEQ TABLET PO (11:37)
[2019-11-07] MEDS: FUROSEMIDE INJ 40 MG/4 ML VIAL 20 MG IV PUSH (11:37)
[2019-11-07 11:49] LABS: Glucose Point of Care 133 (65-105)
--- NOTE | 2019-11-07 14:43 | PM.IMPN ---
Progress Note: A&P Assessment and Plan (1) Gallbladder abscess: Code(s): K81.0 - Acute cholecystitis Status: Acute Assessment and Plan: AND with liver abscess (2) Respiratory failure: Qualifiers: Chronicity: acute Respiratory failure complication: hypoxia Qualified Code(s): J96.01 - Acute respiratory failure with hypoxia Code(s): J96.90 - Respiratory failure, unspecified, unspecified whether with hypoxia or hypercapnia Status: Acute Assessment and Plan: Hypoxemic resp failure. On oral lasix (3) Atrial fibrillation: Code(s): I48.91 - Unspecified atrial fibrillation Status: Acute Assessment and Plan: On metoprolol Not a candidate for AC. Dilitazem added (4) CHF (congestive heart failure): Qualifiers: Heart failure type: systolic Heart failure chronicity: chronic Qualified Code(s): I50.22 - Chronic systolic (congestive) heart failure Code(s): I50.9 - Heart failure, unspecified Status: Chronic Assessment and Plan: Diuresis with oral lasix (5) Chronic alcohol use: Code(s): Z72.89 - Other problems related to lifestyle Status: Chronic Assessment and Plan: On thiamine (6) Encephalopathy: Code(s): G93.40 - Encephalopathy, unspecified Status: Resolved Assessment and Plan: Pt had stat mri brain few days ago (7) Hypokalemia: Code(s): E87.6 - Hypokalemia Status: Resolved Assessment and Plan: Potassium corrected with potassium rider Subjective Date/time seen: 11/07/19 14:43 Interval history: Complicated history pt was transfered to ICU from IMU in respiratory distress. Pt respiratory status has improved on RA. Pt was more somnolent earlier in the day, mri head was ordered and bc as pt is having ongoing tachycardia and complicated medical history including gi abscesses . neurology consulted, cardiology also rounding for fast af. Pt looks alot better today sitting up holding some conversation, chronically ill and deteriorated. Hopeful discharge on saturday pt needs COVID test prior to discharge. Ongoing slow improvement. Review of Systems Review of Systems: ROS unobtainable: Yes unobtainable due to medical condition Exam Narrative: Exam Narrative: elderly frail, pt appears very fatigued, chronically ill Const: General: comfortable and no acute distress Nutritional Appearance: average body habitus, well nourished and overweight Orientation/consciousness: oriented to person, oriented to place, oriented to time and patient oriented x3 Limitations: no limitations Other: Intubated with light sedation Resp: Effort & Inspection: normal respiratory effort Auscultation: diminished lung sounds Percussion: percussion normal Other: Miild distress on 1 liter of oxygen Cardio: Palpation: normal PMI Rate: regular rate and other Rhythm: regular rhythm Heart sounds: S1 normal heart sound present and S2 normal heart sound present Peripheral pulses: Peripheral pulses 2+ throughout Other: RRR GI: Inspection: other (percutaneus drain mild TTP over RUQ) Auscultation: normal bowel sounds Rectal Exam: deferred Other: MIld TTP Neuro: Other: patient is somnolent, holding some conversation sitting up Extrem: General: normal to inspection Right upper extremity: normal to inspection and shoulder/upper arm Left upper extremity: normal to inspection and shoulder/upper arm Right lower extremity: normal to inspection Left lower extremity: normal to inspection Objective Data Vital Signs Vital Signs: Vital Signs - 24 hr 11/06/19 14:51 11/06/19 14:58 11/06/19 16:00 Temperature 36.2 C L Pulse Rate 104 H 100 87 Respiratory Rate 20 20 24 H Blood Pressure 125/79 Pulse Oximetry 97 11/06/19 18:00 11/06/19 20:00 11/06/19 20:23 Temperature 36.4 C Pulse Rate 95 107 H 109 H Respiratory Rate 20 Blood Pressure 133/96 H Pulse Oximetry 91
[2019-11-07 17:12] LABS: Glucose Point of Care 104 (65-105)
[2019-11-07 17:40] LABS: Hematocrit 30.8 % (42.0-52.0); Hemoglobin 9.8 g/dL (14.0-18.0); Mean Corpuscular HGB Conc 31.8 g/dl (32-36); Mean Corpuscular Hemoglobin 31.5 pg (26-34); Mean Platelet Volume 9.6 fl (7.4-10.4); Platelet Count Result 219 k/mm3 (150-375); Red Blood Count 3.11 M/mm3 (4.6-6.20); Red Cell Distribution Width 17.7 % (11.5-14.5); White Blood Count 9.8 K/mm3 (4.5-10.0)
[2019-11-07 18:30] LABS: SARS-CoV-2 RNA PCR Negative
[2019-11-07 20:34] LABS: Glucose Point of Care 108 (65-105)
--- NOTE | 2019-11-07 20:58 | PM.PNPUL ---
Subjective Date/time seen: 11/07/19 20:58 Interval history: Complicated history pt was transfered to ICU from IMU in respiratory distress. Pt respiratory status has improved on RA. Pt was more somnolent earlier in the day, mri head was ordered and bc as pt is having ongoing tachycardia and complicated medical history including gi abscesses . neurology consulted, cardiology also rounding for fast af. Pt looks alot better today sitting up holding some conversation, chronically ill and deteriorated. Hopeful discharge on saturday pt needs COVID test prior to discharge. Ongoing slow improvement. Objective Data Vital Signs Vital Signs: Vital Signs - 24 hr 11/06/19 21:05 11/06/19 21:48 11/07/19 00:00 Temperature Pulse Rate 101 H 102 H 80 Respiratory Rate 18 18 Blood Pressure Pulse Oximetry 94 11/07/19 00:12 11/07/19 02:00 11/07/19 02:34 Temperature 35.8 C L Pulse Rate 92 87 80 Respiratory Rate 18 18 Blood Pressure 125/87 Pulse Oximetry 94 11/07/19 02:44 11/07/19 04:00 11/07/19 04:04 Temperature 36.0 C L Pulse Rate 78 87 87 Respiratory Rate 18 16 16 Blood Pressure 137/94 H Pulse Oximetry 93 93 11/07/19 05:29 11/07/19 07:40 11/07/19 07:50 Temperature Pulse Rate 92 85 85 Respiratory Rate 18 18 Blood Pressure Pulse Oximetry 11/07/19 07:51 11/07/19 08:00 11/07/19 08:39 Temperature 36.9 C Pulse Rate 89 94 Respiratory Rate 18 Blood Pressure 145/82 H Pulse Oximetry 92 93 11/07/19 10:34 11/07/19 12:00 11/07/19 13:49 Temperature 36.6 C Pulse Rate 104 H 98 82 Respiratory Rate 20 18 Blood Pressure 128/80 Pulse Oximetry 93 11/07/19 14:05 11/07/19 14:37 11/07/19 16:00 Temperature 36.7 C Pulse Rate 82 103 H 102 H Respiratory Rate 18 18 Blood Pressure 132/82 Pulse Oximetry 93 11/07/19 18:02 11/07/19 19:51 Temperature 36.0 C L Pulse Rate 108 H 110 H Respiratory Rate 22 H Blood Pressure 131/84 Pulse Oximetry 93 Intake/Output Intake/Output: Intake & Output 11/04/19 11/05/19 11/06/19 11/07/19 23:59 23:59 23:59 23:59 Intake Total 670 220 150 Output Total 3339 6348 140 1007 Balance -2655 -3005 -1258 -1003 Meds/Results Medications: Active Medications Generic Name Dose Route Start Last Admin Trade Name Freq PRN Reason Stop Dose Admin Acetaminophen 650 mg 10/10/19 11:24 10/10/19 12:18 Tylenol Tablet PO 650 mg Q6H PRN Administration Mild Pain (1-3) or Fever Aspirin 325 mg 10/17/19 08:00 11/07/19 08:40 Aspirin FEED TUBE 325 mg DAILY@0800 MONET Administration Dextrose 12.5 gm 10/22/19 07:39 11/04/19 12:23 Dextrose 50% Syringe IV PUSH 12.5 gm PRN PRN Administration Hypoglycemia Protocol Diltiazem HCl 240 mg 10/29/19 09:00 11/07/19 08:40 Cardizem Cd PO 240 mg QAM MONET Administration Dornase Fernando 2.5 mg 10/14/19 20:00 11/07/19 07:49 Pulmozyme INHALATION 2.5 mg Q12HRT MONET Administration Enoxaparin Sodium 40 mg 10/09/19 09:00 11/07/19 08:41 Lovenox SUB-Q 40 mg DAILY MONET Administration Folic Acid 1 mg 10/09/19 09:00 11/07/19 08:40 Folic Acid PO 1 mg DAILY MONET Administration Furosemide 40 mg 11/07/19 09:00 11/07/19 08:41 Lasix Tablet PO 40 mg DAILY MONET Administration Glucagon 1 mg 10/22/19 07:39 Glucagon For Inj IM PRN PRN Hypoglycemia Protocol Glucose 15 gm 10/22/19 07:39 Glutose 15 PO PRN PRN Hypoglycemia Protocol Dextrose 1,000 mls @ 100 mls/hr 10/22/19 07:39 Dextrose 5% 1,000 Ml IVPB PRN PRN Hypoglycemia Protocol Insulin Aspart 4 - 8 units 11/03/19 17:00 11/07/19 16:32 Novolog SUB-Q Not Given ACINSULIN MONET Protocol Ipratropium [place] 0.5 mg 10/09/19 14:00 11/07/19 13:48 Atrovent Neb INHALATION 0.5 mg Q6HRT MONET Administration Levalbuterol HCl 1.25 mg 10/12/19 02:00 11/07/19 13:47 Xopenex 1.25 Mg/0.5 Ml INHALATION 1.25 mg
--- NOTE | 2019-11-07 21:43 | P.PNCROSS_ITS ---
Event Note Event Note Event Note: I was called to evaluate the patient in IMU. His speech was slurred and he is confused. The left pupil is bigger than the right. We ordered a stat CT scan which was read as nothing acute. After the chart was reviewed it was noted that neurology has been on board and that it was noted that the left pupil was bigger than the right. Left pupil is dilated and the right pupil is constricted. Hand mechanical maintenance technician are equal in pedal pushes are equal. Patient follows commands somewhat. Neurology is already on the case and should be updated on the patient's condition.
[2019-11-08] VITALS (19 sets, daily range): BP systolic 109–147; BP diastolic 65–97; PULSE 87–115; RESP 16–24; TEMP 36.2–36.6; O2SAT 92–97
[2019-11-08] MEDS: IPRATROPIUM BR 0.02% INH SOLN 0.5 MG/2.5 ML VIAL INHALATION ×2 (01:41→07:48)
[2019-11-08] MEDS: CENTRAL LINE FLUSH 20 ML IV PUSH (04:24)
[2019-11-08 04:46] LABS: Hemoglobin 9.5 g/dL (14.0-18.0); Mean Corpuscular HGB Conc 31.7 g/dl (32-36); Mean Corpuscular Hemoglobin 31.5 pg (26-34); Mean Corpuscular Volume 99.3 fl (80-100); Mean Platelet Volume 10.5 fl (7.4-10.4); Platelet Count Result 217 k/mm3 (150-375); Red Blood Count 3.02 M/mm3 (4.6-6.20); Red Cell Distribution Width 17.9 % (11.5-14.5); White Blood Count 7.5 K/mm3 (4.5-10.0)
[2019-11-08 04:57] LABS: Anion Gap 8.3 mmol/L (7-16); Blood Urea Nitrogen 22 mg/dL (9-20); Calcium 8.7 mg/dL (8.4-10.2); Carbon Dioxide 31 mmol/L (22-30); Chloride 106 mmol/L (98-107); Estimated CRCL calculation 103 ml/min; Estimated Glomerular Filt Rate > 60; Glucose 94 mg/dL (75-110); Potassium 3.3 mmol/L (3.4-5.0); Sodium 142 mmol/L (137-145)
[2019-11-08] MEDS: CENTRAL LINE FLUSH 10 ML IV PUSH ×3 (06:09→22:00)
[2019-11-08] MEDS: DORNASE ALFA INH SOLN 1 MG/ML 2.5 ML AMP 2.5 MG INHALATION ×2 (07:49→21:16)
[2019-11-08 08:28] LABS: Glucose Point of Care 103 (65-105)
[2019-11-08] MEDS: POTASSIUM CHLORIDE 10 MEQ TABLET.ER 40 MEQ PO (10:04)
[2019-11-08] MEDS: FUROSEMIDE 40 MG TABLET PO (10:05)
[2019-11-08] MEDS: FOLIC ACID 1 MG TABLET PO (10:05)
[2019-11-08] MEDS: THIAMINE HCL 100 MG TABLET PO (10:05)
[2019-11-08] MEDS: MULTIVITAMINS THERAPEUTIC TAB (*BKC) 1 TABLET PO (10:05)
[2019-11-08] MEDS: METOPROLOL TARTRATE 50 MG TAB 100 MG PO ×2 (10:06→20:45)
[2019-11-08] MEDS: ENOXAPARIN 40 MG/0.4 ML SYRINGE SUB-Q (10:06)
[2019-11-08] MEDS: PANTOPRAZOLE SODIUM IV 40 MG VIAL IV PUSH (10:07)
[2019-11-08] MEDS: ASPIRIN 325 MG TABLET FEED TUBE (10:07)
[2019-11-08] MEDS: QUEtiapine FUMARATE 12.5 MG TABLET PO ×2 (10:07→20:45)
[2019-11-08] MEDS: TIMOLOL MALEATE 0.5% OP SOLN 5 ML BTL 1 DROP EACH EYE ×2 (10:08→20:45)
--- NOTE | 2019-11-08 10:49 | PM.PNCARD ---
Progress Note: A&P Assessment and Plan (1) Afib: Qualifiers: Atrial fibrillation type: unspecified Qualified Code(s): I48.91 - Unspecified atrial fibrillation Code(s): I48.91 - Unspecified atrial fibrillation Status: Acute Assessment and Plan: Accepting atrial fibrillation with rate control strategy. Not a candidate for anticoagulation due to his alcohol abuse and reported falling. Continue aspirin 325 mg Heart rates nicely controlled on current regimen. Continiue Metoprolol tartrate 100 mg q 12 hours and Diltiazem CD 240 mg daily . (2) Essential hypertension: Code(s): I10 - Essential (primary) hypertension Status: Chronic Assessment and Plan: Better controlled. Meds as above. (3) COPD (chronic obstructive pulmonary disease): Qualifiers: COPD type: unspecified COPD Qualified Code(s): J44.9 - Chronic obstructive pulmonary disease, unspecified Code(s): J44.9 - Chronic obstructive pulmonary disease, unspecified Status: Chronic Assessment and Plan: Management per hospitalist (4) Hypokalemia: Code(s): E87.6 - Hypokalemia Status: Resolved Assessment and Plan: Supplementing. extra potassium 40 mEq p.o. x1 today (5) CHF (congestive heart failure): Qualifiers: Heart failure type: systolic Heart failure chronicity: chronic Qualified Code(s): I50.22 - Chronic systolic (congestive) heart failure Code(s): I50.9 - Heart failure, unspecified Status: Chronic Assessment and Plan: Acute on chronic systolic Appears euvolemic. Lungs are clear. He is on room air. No edema. Decrease furosemide to 40 mg daily p.o.. Subjective Date/time seen: 11/08/19 10:49 Interval history: Follow-up for: Atrial fibrillation with rapid ventricular response, mild LV dysfunction, history hypertension Date of service: 11/08/2019 Subjective: lying in bed. Denied pain. Denied shortness of breath or lightheadedness. Feels okay Review of Systems Constitutional: Constitutional: Denies body ache(s), Denies chills, Denies fatigue, Reports frequent falls, Denies headache(s) and Reports weakness Eyes: Eyes: Reports loss of vision ENT: Reports dysphagia, Denies dizziness, Denies headache(s), Denies epistaxis, Denies neck pain, Denies throat swelling and Denies tongue swelling Cardiovascular: Cardiovascular: Denies chest pain, Denies pedal edema, Denies leg edema, Denies lightheadedness, Reports dyspnea and Denies dyspnea on exertion Respiratory: Respiratory: Reports cough, Reports dyspnea and Denies dyspnea on exertion Gastrointestinal: Gastrointestinal: Denies abdominal pain, Reports dysphagia, Denies nausea and Denies vomiting Genitourinary: Genitourinary: Denies hematuria Musculoskeletal: Musculoskeletal: Denies back pain, Denies myalgias and Denies neck pain Integumentary/Breasts: Skin/Breast: Denies dry skin, Denies pruritus and Denies rash Neurologic: Denies dizziness, Reports frequent falls, Denies headache(s), Reports loss of vision and Reports weakness Psychiatric: Psychiatric: Denies anxiety Endocrine: Endocrine: Denies fatigue Hematologic/Lymphatic: Hematologic/Lymphatic: Denies easy bruising Allergic/Immunologic: Allergic/Immunologic: Denies throat swelling and Denies tongue swelling Exam Const: General: cooperative, comfortable and no acute distress Nutritional Appearance: average body habitus Orientation/consciousness: patient oriented x3 Other: Chronically ill appearing. Alert and conversational this morning HENMT: Head: normocephalic and atraumatic Ears: hearing grossly impaired Mouth: Yes dry mucous membranes Eyes: Sclera: sclerae normal Pupils: Other pupil findings (right pupil smaller than left) Neck: Neck: supple Thyroi
--- NOTE | 2019-11-08 11:54 | PM.IMPN ---
Progress Note: A&P Assessment and Plan (1) Gallbladder abscess: Code(s): K81.0 - Acute cholecystitis Status: Acute Assessment and Plan: AND with liver abscess (2) Respiratory failure: Qualifiers: Chronicity: acute Respiratory failure complication: hypoxia Qualified Code(s): J96.01 - Acute respiratory failure with hypoxia Code(s): J96.90 - Respiratory failure, unspecified, unspecified whether with hypoxia or hypercapnia Status: Acute Assessment and Plan: Hypoxemic resp failure, improving. On oral lasix (3) Atrial fibrillation: Code(s): I48.91 - Unspecified atrial fibrillation Status: Acute Assessment and Plan: On metoprolol Not a candidate for AC. Dilitazem added (4) CHF (congestive heart failure): Qualifiers: Heart failure type: systolic Heart failure chronicity: chronic Qualified Code(s): I50.22 - Chronic systolic (congestive) heart failure Code(s): I50.9 - Heart failure, unspecified Status: Chronic Assessment and Plan: Diuresis with oral lasix (5) Chronic alcohol use: Code(s): Z72.89 - Other problems related to lifestyle Status: Chronic Assessment and Plan: On thiamine (6) Encephalopathy: Code(s): G93.40 - Encephalopathy, unspecified Status: Resolved Assessment and Plan: Pt had stat mri brain few days ago ? chronic encephalopathy, nurse report AMS last night rpt MRI cancelled. 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 (7) Hypokalemia: Code(s): E87.6 - Hypokalemia Status: Resolved Assessment and Plan: Potassium corrected with supplements Subjective Date/time seen: 11/08/19 11:54 Interval history: Complicated history pt was transfered to ICU from IMU in respiratory distress. Pt respiratory status has improved on RA. Pt was more somnolent earlier in the day, mri head was ordered and bc as pt is having ongoing tachycardia and complicated medical history including gi abscesses . neurology consulted, cardiology also rounding for fast af. Pt looks more somulent today not holding clear conversation or following my commands. chronically ill and deteriorated. Hopeful discharge soon to [place], pt needs COVID test prior to discharge. Ongoing slow improvement. Review of Systems Review of Systems: ROS unobtainable: Yes unobtainable due to medical condition Exam Narrative: Exam Narrative: elderly frail, pt appears very fatigued, chronically ill, not following my commands today Chest: Chest palpation & inspection: normal inspection of the chest Resp: Effort & Inspection: normal respiratory effort Auscultation: diminished lung sounds Percussion: percussion normal Cardio: Palpation: normal PMI Rate: regular rate and other Rhythm: regular rhythm Heart sounds: S1 normal heart sound present and S2 normal heart sound present Peripheral pulses: Peripheral pulses 2+ throughout Other: RRR GI: Inspection: other (percutaneus drain mild TTP over RUQ) Auscultation: normal bowel sounds Other: MIld TTP Back/Spine/Pelvis: Back: no CVA tenderness Cervical Spine: cervical ROM normal Thoracic/Lumbar Spine: thoracic and lumbar spine normal to inspection Pelvis: no pain with anterior-posterior compression Skin: General skin exam: normal color Lesions: no lesions Rashes: no rashes Trauma: no lacerations or abrasions Wounds: no wounds Hair: normal Nails: normal Objective Data Vital Signs Vital Signs: Vital Signs - 24 hr 11/07/19 12:00 11/07/19 13:49 11/07/19 14:05 Temperature 36.6 C Pulse Rate 98 82 82 Respiratory Rate 20 18 18 Blood Pressure 128/80 Pulse Oximetry 93 11/07/19 14:37 11/07/19 16:00 11/07/19 18:02 Temperature 36.7 C Pulse Rate 103 H 102 H 108 H Respiratory Rate 18 Blood Pressure 132/82 Pulse Oximetry 93 11/07/19 19:51 11/07/19 20:00 11/07/19 21:15 Temperature 36.0 C L Pulse Rate 110 H 115 H
[2019-11-08 12:29] LABS: Glucose Point of Care 128 (65-105)
[2019-11-08] MEDS: POTASSIUM CHLORIDE 20 MEQ PACKET (FOR LIQUID) 40 MEQ PO (12:41)
--- NOTE | 2019-11-08 12:50 | PC.NURSE ---
Transfer received from IMU per bed. Report received from GAURAV Ludwig.
--- NOTE | 2019-11-08 12:56 | PC.NURSE ---
This patient, Lloyd Redman, was transferred to [facility] on 11/08/19 at 1250. Personal belongings sent with patient. Report given to Renetta. Appropriate documentation sent with patient.
[2019-11-08 16:54] LABS: Glucose Point of Care 100 (65-105)
[2019-11-08 21:55] LABS: Glucose Point of Care 141 (65-105)
[2019-11-09] VITALS (10 sets, daily range): BP systolic 122–139; BP diastolic 78–86; PULSE 76–111; RESP 16–20; TEMP 36–36.3; O2SAT 94–95
[2019-11-09 06:52] LABS: Hematocrit 32.3 % (42.0-52.0); Hemoglobin 10.1 g/dL (14.0-18.0); Mean Corpuscular HGB Conc 31.3 g/dl (32-36); Mean Corpuscular Hemoglobin 31.4 pg (26-34); Mean Corpuscular Volume 100.3 fl (80-100); Mean Platelet Volume 10.7 fl (7.4-10.4); Platelet Count Result 219 k/mm3 (150-375); Red Blood Count 3.22 M/mm3 (4.6-6.20); Red Cell Distribution Width 17.8 % (11.5-14.5); White Blood Count 8.1 K/mm3 (4.5-10.0)
[2019-11-09] MEDS: CENTRAL LINE FLUSH 10 ML IV PUSH (06:52)
[2019-11-09 07:16] LABS: Anion Gap 6.3 mmol/L (7-16); Blood Urea Nitrogen 22 mg/dL (9-20); Calcium 8.7 mg/dL (8.4-10.2); Carbon Dioxide 32 mmol/L (22-30); Chloride 107 mmol/L (98-107); Estimated CRCL calculation 103 ml/min; Estimated Glomerular Filt Rate > 60; Glucose 91 mg/dL (75-110); Potassium 3.3 mmol/L (3.4-5.0); Sodium 142 mmol/L (137-145)
[2019-11-09 07:56] LABS: Glucose Point of Care 90 (65-105)
[2019-11-09] MEDS: METOPROLOL TARTRATE 50 MG TAB 100 MG PO (09:02)
[2019-11-09] MEDS: QUEtiapine FUMARATE 12.5 MG TABLET PO (09:02)
[2019-11-09] MEDS: POTASSIUM CHLORIDE 10 MEQ TABLET.ER 40 MEQ PO (09:03)
[2019-11-09] MEDS: MULTIVITAMINS THERAPEUTIC TAB (*BKC) 1 TABLET PO (09:04)
[2019-11-09] MEDS: FUROSEMIDE 40 MG TABLET PO (09:04)
[2019-11-09] MEDS: ASPIRIN 325 MG TABLET FEED TUBE (09:04)
[2019-11-09] MEDS: ENOXAPARIN 40 MG/0.4 ML SYRINGE SUB-Q (09:04)
[2019-11-09] MEDS: PANTOPRAZOLE SODIUM IV 40 MG VIAL IV PUSH (09:05)
[2019-11-09] MEDS: TIMOLOL MALEATE 0.5% OP SOLN 5 ML BTL 1 DROP EACH EYE (09:06)
[2019-11-09] MEDS: polyethylene glycoL 3350 17 GM POWD.PACK PO (09:10)
[2019-11-09] MEDS: DORNASE ALFA INH SOLN 1 MG/ML 2.5 ML AMP 2.5 MG INHALATION (09:31)
--- NOTE | 2019-11-09 10:21 | PCPTNOTE ---
Patient refused treatment this session. Pt states that he wants to go home! Patient states I am not doing shit! All I am going to do is take a nap! Patient educated about the importance of participating in therapy to improve strength and mobility. Patient continued to refuse exercises, transfer and gait interventions.
--- NOTE | 2019-11-09 10:53 | PCNFU ---
Nutrition Follow-Up Complete: Inadequate oral intake related to multiple medical issues as evidenced by NPO diet, previous meal refusals on advanced diet. Goal: Patient to meet estimated needs Progressing towards goal. We will continue current goal. Pt current nutrition is Heart Healthy/Pureed,Level 4/Moderately Thick, Level 3. Nutrition recommendation:Agree Last recorded weight is 80.7 kg. Bowel Motility:+BM 8/3 Labs Reviewed:K 3.3,Cr 0.6,BUN 22, Hgb 10.1,Hct 32.3 Meds Noted:Protonix,Lasix,Lopressor Additional Notes: Patient seen today for nutrition follow up. Cream of wheat and OJ for breakfast he was full assist from nursing. Patient is also receiving Compact TID providing an additional 240 kcals and 9 gms protein. Did not drink Ensure for breakfast today. PO intake is encouraged, oral intake have been poor. Monitoring: Follow up in 3 day.
[2019-11-09 11:48] LABS: Glucose Point of Care 115 (65-105)
[2019-11-09] MEDS: POTASSIUM CHLORIDE 20 MEQ TABLET 40 MEQ PO (12:00)
[2019-11-09] MEDS: NEOMYCIN/POLYMYXIN/BACITRACIN OINTMENT PACKET 1 PACKET (12:45)
--- NOTE | 2019-11-09 14:42 | PCOTNOTE ---
Attempted to see patient, however, patient declined to participate in any task. Patient to discharge this PM. Will continue plan of care tomorrow if patient is not discharged.
--- NOTE | 2019-11-09 15:10 | PM.PNCARD ---
Progress Note: A&P Assessment and Plan (1) Afib: Qualifiers: Atrial fibrillation type: unspecified Qualified Code(s): I48.91 - Unspecified atrial fibrillation Code(s): I48.91 - Unspecified atrial fibrillation Status: Acute Assessment and Plan: Accepting atrial fibrillation with rate control strategy. Heart rate is nicely controlled on current regimen. Not a candidate for anticoagulation due to his alcohol abuse and reported falling. Continue aspirin 325 mg Continiue Metoprolol tartrate 100 mg q 12 hours and Diltiazem CD 240 mg daily (2) Essential hypertension: Code(s): I10 - Essential (primary) hypertension Status: Chronic Assessment and Plan: Better controlled. Meds as above. (3) COPD (chronic obstructive pulmonary disease): Qualifiers: COPD type: unspecified COPD Qualified Code(s): J44.9 - Chronic obstructive pulmonary disease, unspecified Code(s): J44.9 - Chronic obstructive pulmonary disease, unspecified Status: Chronic Assessment and Plan: Management per hospitalist (4) Hypokalemia: Code(s): E87.6 - Hypokalemia Status: Resolved Assessment and Plan: Supplementing. (5) CHF (congestive heart failure): Qualifiers: Heart failure type: systolic Heart failure chronicity: chronic Qualified Code(s): I50.22 - Chronic systolic (congestive) heart failure Code(s): I50.9 - Heart failure, unspecified Status: Chronic Assessment and Plan: Acute on chronic systolic Appears euvolemic. Lungs are clear. He is on room air. No edema. Continue furosemide 40 mg daily p.o.. Additional Plan Plan discussed with Dr. Monahan [id number] 11/09/2019 Subjective Date/time seen: 11/09/19 15:10 Interval history: Follow-up for: Atrial fibrillation with rapid ventricular response, mild LV dysfunction, history hypertension Date of service: 11/09/2019 Subjective: Denies pain. No shortness of breath. No lightheadedness. Review of Systems Constitutional: Constitutional: Denies body ache(s), Denies chills, Denies fatigue, Reports frequent falls, Denies headache(s) and Reports weakness Eyes: Eyes: Reports loss of vision ENT: Reports dysphagia, Denies dizziness, Denies headache(s), Denies epistaxis, Denies neck pain, Denies throat swelling and Denies tongue swelling Cardiovascular: Cardiovascular: Denies chest pain, Denies pedal edema, Denies leg edema, Denies lightheadedness, Reports dyspnea and Denies dyspnea on exertion Respiratory: Respiratory: Reports cough, Reports dyspnea and Denies dyspnea on exertion Gastrointestinal: Gastrointestinal: Denies abdominal pain, Reports dysphagia, Denies nausea and Denies vomiting Genitourinary: Genitourinary: Denies hematuria Musculoskeletal: Musculoskeletal: Denies back pain, Denies myalgias and Denies neck pain Integumentary/Breasts: Skin/Breast: Denies dry skin, Denies pruritus and Denies rash Neurologic: Denies dizziness, Reports frequent falls, Denies headache(s), Reports loss of vision and Reports weakness Psychiatric: Psychiatric: Denies anxiety Endocrine: Endocrine: Denies fatigue Hematologic/Lymphatic: Hematologic/Lymphatic: Denies easy bruising Allergic/Immunologic: Allergic/Immunologic: Denies throat swelling and Denies tongue swelling Exam Narrative: Exam Narrative: Laying in bed. Just completed respiratory treatment. Cooperative and pleasant. Const: General: cooperative, comfortable and no acute distress Nutritional Appearance: average body habitus Orientation/consciousness: patient oriented x3 Other: HENMT: Head: normocephalic and atraumatic Ears: hearing grossly impaired Mouth: Yes dry mucous membranes Eyes: Sclera: sclerae normal Pupils: Other pupil findings (right pupil smaller
[2019-11-09 16:35] LABS: Glucose Point of Care 119 (65-105)
--- NOTE | 2019-11-14 08:12 | PM.DS ---
DS: Admitting Diagnosis Admitting Diagnosis Admitting Diagnosis: Sepsis, unspecified organism DS: Discharge Diagnosis Discharge Diagnosis (1) Gallbladder abscess: Code(s): K81.0 - Acute cholecystitis Status: Acute Assessment and Plan: AND with liver abscess cultures grew ESBL E coli. Received over 14 days of imipenem and 6-7 days of aztreonam. with vancomycin for possible aspiration pneumonia. One drain still in position the right upper quadrant at discharge. Last CT of the abdomen 10/25 had shown some resolution of abscess cavities. he will follow-up with general surgery and primary care (2) Respiratory failure: Qualifiers: Chronicity: acute Respiratory failure complication: hypoxia Qualified Code(s): J96.01 - Acute respiratory failure with hypoxia Code(s): J96.90 - Respiratory failure, unspecified, unspecified whether with hypoxia or hypercapnia Status: Acute Assessment and Plan: Hypoxemic resp failure, improving. On oral lasix thought to be some component of heart failure and are aspiration pneumonia. He received diuresis and antibiotics with improvement. On room air at discharge (3) Atrial fibrillation: Code(s): I48.91 - Unspecified atrial fibrillation Status: Acute Assessment and Plan: On metoprolol with rate control. Not a candidate for AC. (4) CHF (congestive heart failure): Qualifiers: Heart failure type: systolic Heart failure chronicity: chronic Qualified Code(s): I50.22 - Chronic systolic (congestive) heart failure Code(s): I50.9 - Heart failure, unspecified Status: Chronic Assessment and Plan: Diuresis with oral lasix Probable acute on chronic diastolic heart failure with EF by echo at 55-60% (5) Chronic alcohol use: Code(s): Z72.89 - Other problems related to lifestyle Status: Chronic Assessment and Plan: On thiamine (6) Encephalopathy: Code(s): G93.40 - Encephalopathy, unspecified Status: Resolved Assessment and Plan: Pt had mri brain ? chronic encephalopathy, . 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 Treated with 14 days IV antibiotics and had what was felt to be heart failure versus aspiration pneumonia. Treated with further antibiotics and diuresis with resolution of respiratory failure. Echo ejection fraction 55% and thought to be probable diastolic dysfunction. Past modified barium swallow test was working with physical therapy and discharged to rehab. Drain still in place at discharge. Antibiotics and will follow-up with primary care and surgery Time Spent with Patient Time attestation: Total time spent providing and/or coordinating discharge services:35 minutes Exam Narrative: Exam Narrative: condition on discharge blood pressure 122/86 pulse is irregular in the 90s saturating 95% on room air afebrile lungs clear CV irregular abdomen is soft bowel sounds present drain right upper quadrant as before extremities without edema alert conversant and had been working with physical therapy but did refuse the morning of discharge which he had intermittently DS: Data Data Completed and Pending Labs on day of discharge: Preliminary micro results at discharge 10/19/19 14:48 Fungal Culture - Preliminary Bronchial Washings Carinal Sissy tropicalis Cladosporium species 10/19/19 14:48 Acid Fast Bacilli Culture - Preliminary Bronchial Washings Carinal Discharge Plan Discharge Attending physician on discharge: Pradeep Moura Consulting providers: Ioana Gonzales ; Judy Delacruz ; Amish Singleton ; Charlotte Christian ; Donavan Monahan ; Jean Marie Clarke ; Haydee Sandhu ; Marlin Burk ; Be
== END 2019-11-09 19:00 | DRG 870 ==
LOC: ANHED 17:05 → ANHICU 18:51 → ANHIMU 10-10 20:18 → ANHICU 10-16 00:21 → ANHIMU 11-07 12:28 → ANH3MED 11-09 11:19 → ANHICU 11-10 16:02 → ANHIMU 11-10 16:02
PROVIDERS: Emergency Medicine Emergency Medical Services; Family Medicine; Internal Medicine; Internal Medicine Critical Care Medicine; Internal Medicine Infectious Disease; Nurse Practitioner; Nurse Practitioner Adult Health; Admitting Provider Family Medicine; Emergency Provider General Practice; PCP Family Medicine; Visit Provider Internal Medicine
PROC: 0BJ08ZZ Inspection of Tracheobronchial Tree, Via Natural or Artificial Opening Endoscopic (ICD-10-PCS; CPT 31622; principal; 2019-10-19 13:45)
DX: A41.9 Sepsis, unspecified organism (principal); R65.21 Severe sepsis with septic shock; K75.0 Abscess of liver; G93.41 Metabolic encephalopathy; J96.01 Acute respiratory failure with hypoxia; J69.0 Pneumonitis due to inhalation of food and vomit; I50.33 Acute on chronic diastolic (congestive) heart failure; K81.0 Acute cholecystitis; N39.0 Urinary tract infection, site not specified; E87.1 Hypo-osmolality and hyponatremia; K56.7 Ileus, unspecified; I31.3 Pericardial effusion (noninflammatory); Z11.59 Encounter for screening for other viral diseases; B96.20 Unspecified Escherichia coli [E. coli] as the cause of diseases classified elsewhere; N40.0 Benign prostatic hyperplasia without lower urinary tract symptoms; I48.91 Unspecified atrial fibrillation; D72.829 Elevated white blood cell count, unspecified; I11.0 Hypertensive heart disease with heart failure; J44.9 Chronic obstructive pulmonary disease, unspecified; E55.9 Vitamin D deficiency, unspecified; E78.5 Hyperlipidemia, unspecified; K21.9 Gastro-esophageal reflux disease without esophagitis; D64.9 Anemia, unspecified; R73.9 Hyperglycemia, unspecified; F10.10 Alcohol abuse, uncomplicated; E87.6 Hypokalemia; R13.10 Dysphagia, unspecified; F17.210 Nicotine dependence, cigarettes, uncomplicated; Z86.73 Personal history of transient ischemic attack (TIA), and cerebral infarction without residual deficits; Z98.42 Cataract extraction status, left eye; Z98.41 Cataract extraction status, right eye
CPT/HCPCS: 10160; 31500; 36415; 36556; 36600; 70450; 70490; 70551; 71045; 71046; 71250; 74150; 74177; 75989; 76942; 80048; 80053; 80202; 81001; 82140; 82375; 82805; 83050; 83605; 83690; 83735; 84100; 84132; 84145; 84443; 85025; 85027; 85610; 85730; 86140; 87015; 87040; 87070; 87075; 87077; 87086; 87088; 87102; 87106; 87107; 87116; 87186; 87205; 87206; 87279; 87635; 92526; 92610; 92611; 93005; 93306; 94002; 94003; 94640; 94667; 94668; 94669; 96361; 96365; 96367; 97110; 97161; 97164; 97166; 97530; 97535; 99291; A9270; C1751; C9113; C9803; J0282; J0330; J0743; J1100; J1630; J1650; J1815; J1940; J1956; J2060; J2250; J2370; J2920; J3010; J3370; J3475; J3480; J7030; J7040; J7060; J7120; P9047; Q9967; U0003

== ENCOUNTER 2019-11-10 04:40 | Emergency (ER) | payer MEDICARE, OTHER, SELFPAY ==
[2019-11-10] VITALS (8 sets, daily range): BP systolic 142–155; BP diastolic 102–111; PULSE 68–125; RESP 14–26; TEMP 36.7; O2SAT 95–98
--- NOTE | 2019-11-10 04:58 | PC.NURSE ---
pt incontinent of loose stool upon arrival, edna care and linen change provided.
--- NOTE | 2019-11-10 06:28 | PC.NURSE ---
pt incontinent of loose stool. edna care provided, wounds redressed, linens changed.
--- NOTE | 2019-11-10 06:46 | ED.FALL ---
HPI - Fall General Chief Complaint: Fall Stated Complaint: fall Time Seen by Provider: 11/10/19 06:43 History of Present Illness HPI Narrative: Patient [facility] via [facility] He said he just rolled out of bed. He said he has no pain and no injury. He does not want anything to eat or drink. He said his memory is fine. He has no other complaints. He says he can walk. complaint: fall Onset (ago): hour(s) Fall from: out of bed Fall witnessed: no Place fall occurred: [facility] Loss of consciousness: none Prolonged down time: no Symptoms prior to fall: none Related Data Home Medications Medication Instructions Recorded Confirmed aspirin 325 mg PO DAILY 07/25/19 10/08/19 cholecalciferol (vitamin D3) 125 mcg PO DAILY 07/25/19 10/08/19 [Vitamin D3] multivitamin 1 cap PO DAILY 09/07/19 10/08/19 Allergies Allergy/AdvReac Type Severity Reaction Status Date / Time Penicillins Allergy Severe Hives / Verified 10/08/19 12:16 Red Face Review of Systems Review of Systems: Narrative: CONSTITUTIONAL: Denies fever, chills, or sweats. EYES: Denies visual changes, redness, or discharge. ENT: Denies rhinorrhea, congestion, sore throat, or otalgia. CARDIOVASCULAR: Denies chest pain, palpitations, or edema. RESPIRATORY: Denies cough or dyspnea. GASTROINTESTINAL: Denies abdominal pain, nausea, vomiting, or diarrhea. GENITOURINARY: Denies dysuria or hematuria. SKIN: Denies rash or itching. MUSCULOSKELETAL: Denies back pain, joint pain, or myalgia. NEUROLOGIC: Denies headache, numbness, or weakness. [facility] Past Medical History Medical History Acute cholecystitis 07/2019 treated with antibiotic therapy Alcohol abuse Atrial fibrillation Not on long-term anticoagulation due to high has bled score. BPH (benign prostatic hyperplasia) CHF (congestive heart failure) Mild systolic dysfunction noted on echocardiogram from 07/27/2019 45-50%, mild mitral valve regurgitation, mild aortic valve sclerosis and biatrial dilatation Chronic anemia COPD (chronic obstructive pulmonary disease) Essential hypertension GERD (gastroesophageal reflux disease) Histoplasmosis History of BPH History of TIAs Hyperlipidemia Vitamin D deficiency Surgical History Surgical History History of bilateral cataract extraction History of vasectomy Male circumcision Social History Social History Social History: Patient drinks (3) 4 oz drinks of Tequila a day prior to his hospitalization in July. Currently he is drinking 2 margaritas a day with 1 shot of Tequila each. He has smoked 1.5 packs cigarettes per day for 55 years. Primary care physician: Dr. Jean-Claude Crawford Code status: Full code. Surrogate decision maker is Raine phone number [phone]. The patient has 2 children. 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 Smoking packs per day: 1.5 Smoking cigarettes per day: 30.0 Years smoked: 54 Smoking pack-years: 81.00 Smoking status: Current every day smoker Tobacco type: cigarettes Second hand tobacco smoke exposure: Yes Alcohol intake: current Drinks per week: 2 Substance use: former Substance use type: marijuana Last use: 1970 Additional living arrangements comments: He lives at home with his . Gender identity (if verbalized by the patient): Male Spiritual care concerns: No Agree to blood products: Yes Exam Narrative: Exam Narrative: GENERAL: Well-appearing, well-nourished, and in no acute distress. HEAD: Normocephalic, atraumatic. EYES: PERRLA and EOMI. ENT: Nares clear, no rhinorrhea or epistaxis. Mucous membranes dry. NECK: Supple. CHEST: Clear to auscultation. No respiratory distress. HEART: Regular rate and rhythm. No murmur heard. Normal peripheral pulses. ABDOMEN: Soft, nonten
--- NOTE | 2019-11-10 07:16 | PC.NURSE ---
Assumed care of pt, pt is alert on stretcher and orient to person and place (baseline), discussed POC. VSS.
--- NOTE | 2019-11-10 08:18 | PC.NURSE ---
Pt incont. of stool, dressings soiled - changed, repositioned, pericare, linens changed.
--- NOTE | 2019-11-10 09:22 | PC.NURSE ---
Per unit sec, [facility] is giving new ETA for pt picker and sorter load and unload, states they will be here in aprox 30 mins. Pt updated.
--- NOTE | 2019-11-10 09:49 | PC.NURSE ---
Pt found attempting to get out of bed by self. Bed alarm placed, depends soiled with stool, pt cleaned and dried - repositioned in stretcher. Updated on POC, given ice water per request. No other concerns at this time.
--- NOTE | 2019-11-10 11:23 | PC.NURSE ---
Noted pt trying to get out of bed (alarm sounded), pt assited to different position. Sitter at bedside.
[2019-11-12 07:41] LABS: Glucose Point of Care 120 (65-105)
== END 2019-11-10 11:50 ==
PROVIDERS: Emergency Provider Emergency Medicine; PCP Family Medicine
DX: Z04.3 Encounter for examination and observation following other accident (principal); Z79.82 Long term (current) use of aspirin; I48.91 Unspecified atrial fibrillation; D29.1 Benign neoplasm of prostate; I50.9 Heart failure, unspecified; J44.9 Chronic obstructive pulmonary disease, unspecified; I11.0 Hypertensive heart disease with heart failure; K21.9 Gastro-esophageal reflux disease without esophagitis; Z86.73 Personal history of transient ischemic attack (TIA), and cerebral infarction without residual deficits; B39.9 Histoplasmosis, unspecified; E55.9 Vitamin D deficiency, unspecified; W06.XXXA Fall from bed, initial encounter
CPT/HCPCS: 99282

== ENCOUNTER 2019-11-10 23:53 | Inpatient (IN) | payer MEDICARE, OTHER, SELFPAY ==
--- NOTE | ~2019-11-10 | XR_ITS ---
XR chest 1V portable DATE: 11/11/2019 03:31 INDICATION: Atrial fibrillation with rapid ventricular response TECHNIQUE: Portable upright AP chest on 11/11/2019 at 0331 hours COMPARISON: 11/08/2019 AP and lateral chest FINDINGS: There is cardiomegaly. There is aortic calcification. There is mild pulmonary vascular congestion and redistribution. There is mild prominence of the minor fissure. There are bilateral primarily lower lobe infiltrates and/or atelectasis. Very small pleural effusions are suggested. Osteopenia. IMPRESSION: Cardiomegaly, mild congestive heart failure, increased since 11/08/2019 Patchy infiltrates and/atelectasis involving primarily the lower lobes, relatively stable since 020 Reviewed, dictated and finalized at location A. IMPRESSION: Cardiomegaly, mild congestive heart failure, increased since 11/08/19 20 Patchy infiltrates and/atelectasis involving primarily the lower lobes, relativ romie stable since 11/08/2019
--- NOTE | ~2019-11-10 | XR_ITS ---
EXAMINATION: XR chest 2V DATE: 11/18/2019 12:09 INDICATION: Congestive heart failure. TECHNIQUE: Frontal and lateral views of the chest were obtained. COMPARISON: Chest single view 11/11/2019, CT abdomen and pelvis 11/11/2019 FINDINGS: There are airspace opacities in the lower lung zones. There are small pleural effusions. No pneumothorax. There is enlargement of the cardiac silhouette. Calcified left hilar lymph nodes are c onsistent with old adenomatous disease. IMPRESSION: 1. Airspace opacities in the lower lung zones, consistent with atelectasis versus pneumonia. 2. Small pleural effusions. 3. Enlargement of the cardiac silhouette, likely a combination of cardiomegaly and pericardial effusi on as seen on the prior CT. Reviewed, dictated and finalized at location B. IMPRESSION: 1. Airspace opacities in the lower lung zones, consistent with atelectasis vers us pneumonia. 2. Small pleural effusions. 3. Enlargement of the cardiac silhouette, likely a combination of cardiomegaly and pericardial effusion as seen on the prior CT.
--- NOTE | ~2019-11-10 | CT_ITS ---
EXAMINATION: CT abdomen pelvis w con DATE: 11/11/2019 01:04 INDICATION: Abscess drain removed by patient; evaluate for residual abscess TECHNIQUE: Computed tomography (CT) of the abdomen and pelvis was performed with 100 cc Omnipaque 350 intravenous contrast. Automated exposure control and iterative reconstruction technique were employe d. Exam dose: 617.45 mGy-cm total exam DLP. COMPARISON: 10/26/2019 CT abdomen pelvis FINDINGS: Bilateral pleural effusions, left greater than right. Mild predominantly dependent infiltra te and/atelectasis in the lower lung zones. Cardiomegaly. Mild to moderate stable pericardial effusion. Extensive coronary artery calcifications. Diffuse hepatic steatosis. There is mild free fluid adjacent to the liver in the right paracolic gutter. Previous percutaneous drainage catheter at the right upper anterior abdominal wall is no longer prese nt since 10/26/2019. There is a 4.5 x 1.8 x 5.2 cm new abscess anterior to the liver at the medial segment of the left hep atic lobe. There is a 4.9 x 2.9 x 3.4 cm infrahepatic abscess beneath the medial segment of the left hepatic lob e, increased in size compared to 10/26/2019. Decreased size of abscess inferior to the right hepatic lobe, measuring 5.4 x 1.5 x 4.6 cm currently. 3.0 x 1.1 x 4.5 cm abscess in the left paracolic gutter, diminished in size since 10/26/2019. 1.5 x 4.8 x 1.0 cm abscess in the lower pelvis, decreased from prior examination. Otherwise no hepatic, splenic, pancreatic, adrenal space-occupying mass lesion or left renal mass les ion is evident. Right renal cysts, measuring up to 4.1 cm. Atherosclerotic calcification of the abdominal aorta and iliac and femoral arteries. No abdominal aor tic aneurysm. No intraperitoneal or retroperitoneal or pelvic mass lesion or adenopathy. There is a Coombs catheter in the evacuated urinary bladder. There are numerous diverticula of the lef t and right colon; no CT evidence of diverticulitis. No bowel obstruction is evident. Compression fracture deformities of T11 and L2 are again noted. IMPRESSION: Multiple abscesses, including one new abscess along the anterior aspect of the medial se gment of the right hepatic lobe, increased size of a left infrahepatic abscess; diminished size of ab scesses in the right infrahepatic area, left paracolic gutter and lower pelvis. Removal of percutaneous drainage catheter at anterior aspect of left hepatic lobe since 10/26/2019 Persistent mild to moderate pericardial effusion and mild bilateral pleural effusions Cardiomegaly, extensive coronary atherosclerosis Right renal cysts Diverticulosis of left and right colon Reviewed, dictated and finalized at Location A. Reviewed, dictated and finalized at location A. IMPRESSION: Multiple abscesses, including one new abscess along the anterior a spect of the medial segment of the right hepatic lobe, increased size of a left infrahepatic abscess; diminished size of abscesses in the right infrahepatic a mahamed, left paracolic gutter and lower pelvis. Removal of percutaneous drainage catheter at anterior aspect of left hepatic lo be since 10/26/2019 Persistent mild to moderate pericardial effusion and mild bilateral pleural eff usions Cardiomegaly, extensive coronary atherosclerosis Right renal cysts Diverticulosis of left and right colon
[2019-11-10 23:59] VITALS: BP 148/108; PULSE 103; RESP 18; TEMP 36.9; O2SAT 97
[2019-11-11] VITALS (21 sets, daily range): BP systolic 119–168; BP diastolic 74–109; PULSE 95–150; RESP 15–20; TEMP 35.6–37.2; O2SAT 94–100; BMI 24.9
--- NOTE | 2019-11-11 00:17 | ED.GENADULT ---
HPI - General Adult General Chief complaint: Unspecified Stated complaint: pulled out abd drain Time Seen by Provider: 11/11/19 00:03 History of Present Illness HPI narrative: [facility] drain being dislodged. The tip is out from the skin but it is still attached with suture. He does not know about it. He says he has no pain. He denies being sick. He said his appetite is good. The drainage from an abscess from last month with Dr. Gonzales. Onset (ago): hour(s) Related Data Home Medications Medication Instructions Recorded Confirmed aspirin 325 mg PO DAILY 07/25/19 10/08/19 cholecalciferol (vitamin D3) 125 mcg PO DAILY 07/25/19 10/08/19 [Vitamin D3] multivitamin 1 cap PO DAILY 09/07/19 10/08/19 Allergies Allergy/AdvReac Type Severity Reaction Status Date / Time Penicillins Allergy Severe Hives / Verified 10/08/19 12:16 Red Face Review of Systems Review of Systems: Narrative: CONSTITUTIONAL: Denies fever, chills, or sweats. CARDIOVASCULAR: Denies chest pain, palpitations, or edema. RESPIRATORY: Denies cough or dyspnea. GASTROINTESTINAL: Denies abdominal pain, nausea, vomiting, or diarrhea. MUSCULOSKELETAL: Denies back pain, joint pain, or myalgia. NEUROLOGIC: Denies headache, numbness, or weakness. All systems reviewed & are unremarkable except as noted in HPI and below PMFSH Social History Social History Social History: Patient drinks (3) 4 oz drinks of Tequila a day prior to his hospitalization in July. Currently he is drinking 2 margaritas a day with 1 shot of Tequila each. He has smoked 1.5 packs cigarettes per day for 55 years. Primary care physician: Dr. Jean-Claude Crawford Code status: Full code. Surrogate decision maker is Raine phone number [phone]. The patient has 2 children. 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 Smoking packs per day: 1.5 Smoking cigarettes per day: 30.0 Years smoked: 54 Smoking pack-years: 81.00 Smoking status: Current every day smoker Tobacco type: cigarettes Second hand tobacco smoke exposure: Yes Alcohol intake: current Drinks per week: 2 Substance use: former Substance use type: marijuana Last use: 1970 Additional living arrangements comments: He lives at home with his . Gender identity (if verbalized by the patient): Male Spiritual care concerns: No Agree to blood products: Yes Exam Narrative: Exam Narrative: GENERAL: Well-appearing, well-nourished, and in no acute distress. Speech is slow and muffled. HEAD: Normocephalic, atraumatic. EYES: PERRLA and EOMI. ENT: Nares clear, no rhinorrhea or epistaxis. Mucous membranes moist. NECK: Supple. CHEST: Clear to auscultation. No respiratory distress. HEART: Regular rate and rhythm. No murmur heard. Normal peripheral pulses. ABDOMEN: Soft, nontender, nondistended, normal active bowel sounds. Drain is still attached by a suture to the opening. EXTREMITIES: Normal range of motion. No edema. SKIN: Warm, dry, no rash. NEURO: No focal deficits. Alert. PSYCH: Normal mood and affect. Course Reevaluation(s) Reevaluation #1: Suture removal. Removed one suture that was still holding the drain in place. Patient tolerated well. Consultations Consultation #1: Call Dr. Gonzales, and Dr. Gabriel answered. He recommends checking the previous cultures for sensitivities. He will do the consult. Date: 11/11/19 Time: 02:01 Consultation #2: Call Dr. Chavira for admission, for abdominal abscesses, and A. fib rapid ventricular response. He accepts. Date: 11/11/19 Time: 02:01 Vital Signs Vital signs: Vital Signs Temperature 98.4 F 11/10/19 23:59 Pulse Rate 103 H 11/10/19 23:59 Respiratory Rate 18 11/10/19 23:59 Blood Pressure 148/108 H 11/10/19 23:59 Pulse Oximetry 97 11/10/19 23:59 Temperature 98.4 F 11/10/19 23:59 Pulse Rate 150 H 0
[2019-11-11 00:45] LABS: Basophils Percent Auto 0.4 % (0.2-1.2); Eosinophils Absolute Auto 0.1 K/mm3 (0-0.3); Eosinophils Percent Auto 0.5 % (0-4.4); Hematocrit 34.1 % (42.0-52.0); Hemoglobin 10.7 g/dL (14.0-18.0); Immature Granulocyte Absolute 0.06 K/mm3 (0.00-0.031); Immature Granulocyte Percent A 0.6 % (0-0.5); Lymphocytes Absolute Auto 1.89 K/mm3 (0.9-3.2); Lymphocytes Percent Auto 18.2 % (18.3-44.2); Mean Corpuscular HGB Conc 31.4 g/dl (32-36); Mean Corpuscular Hemoglobin 31.2 pg (26-34); Mean Corpuscular Volume 99.4 fl (80-100); Mean Platelet Volume 10.7 fl (7.4-10.4); Monocytes Absolute Auto 0.8 K/mm3 (0.1-0.6); Monocytes Percent Auto 7.9 % (2.6-8.5); Neutrophils Absolute Auto 7.5 K/mm3 (1.3-6.7); Neutrophils Percent Auto 72.4 % (45.5-73.1); Platelet Count Result 230 k/mm3 (150-375); Red Blood Count 3.43 M/mm3 (4.6-6.20); Red Cell Distribution Width 17.7 % (11.5-14.5); White Blood Count 10.4 K/mm3 (4.5-10.0)
[2019-11-11 00:55] LABS: Alanine Aminotransferase 15 U/L (4-50); Albumin Level 3.4 g/dL (3.5-5.1); Alkaline Phosphatase 106 U/L (38-126); Anion Gap 10.2 mmol/L (7-16); Aspartate Amino Transferase 20 U/L (17-59); Bilirubin,Total 0.7 mg/dL (0.2-1.3); Blood Urea Nitrogen 26 mg/dL (9-20); Carbon Dioxide 29 mmol/L (22-30); Chloride 104 mmol/L (98-107); Estimated CRCL calculation 77 ml/min; Estimated Glomerular Filt Rate > 60; Glucose 110 mg/dL (75-110); INR 1.3; Potassium 3.2 mmol/L (3.4-5.0); Prothrombin Time 15.6 Seconds (11.1-14.7); Sodium 140 mmol/L (137-145)
[2019-11-11 00:56] LABS: Estimated CRCL calculation 69 ml/min; Estimated Glomerular Filt Rate > 60
[2019-11-11] MEDS: dilTIAZem HCl INJ 25 MG/5 ML VIAL 10 MG IV PUSH ×2 (01:05→02:45)
[2019-11-11 01:16] LABS: NT Pro B Type Natriuretic Pept 15900 PG/ML (5-100); Troponin I < 0.012 ng/mL (0.000-0.034)
[2019-11-11] MEDS: POTASSIUM CHLORIDE 20 MEQ PACKET (FOR LIQUID) (01:23)
[2019-11-11] MEDS: levoFLOXacin 500 MG/D5W 100 ML 500 MG/100 ML BAG 100 MG IVPB (02:05)
[2019-11-11 02:10] LABS: Lactic Acid Reflex 1.1 mmol/L (0.7-2.1)
--- NOTE | 2019-11-11 02:50 | PC.NURSE ---
edna care provided at this time.
--- NOTE | 2019-11-11 03:01 | PM.IMHP ---
H&P: HPI History of Present Illness Date/Time: 11/11/19 03:01 Chief complaint: a fib RVR and multiple abdominal abscesses Narrative: This is an unfortunate 69 year old male with known past medical history of CHF, atrial fibrillation, COPD, Alcohol abuse, HTN among other comorbidities who was just discharged from our Hospitalist service 2 days ago after an extended hospitalization this past month battling acute cholecystitis w/ abscess with a surgical drain and antibiotics by the surgical and infectious disease services and who now [facility] became dislodged. The patient grew out ESBL E.coli from his drain as well as his urine culture. He was treated with imipenem this past month. Tonight in the ER the patient was also found to be in atrial fibrillation w/ RVR. Cardiology has decided that the patient is not a candidate for anticoagulation as he has a history of alcohol abuse with frequent falls. Tonight on my encounter with the patient he is alert and oriented to himself and place. He does appear slow to answer questions but can answer my questions appropriately. He denies any specific symptoms at this time including fever, chills, cough, chest pain, shortness of breath, palpitations, abdominal pain, dysuria, hematuria, or focal neurological deficits. The patient cannot tell me if he pulled out his percutaneous drain or if it simply fell out. He doesn't seem to even be aware that it existed. CT abd/Pelvis was obtained in the ER tonight and demonstrated multiple abdominal abscesses. General Surgery, Dr. Gabriel was consulted by ER provider who will manage the patient's abdominal abscesses and drain. He was treated with an IV bolus of cardizem and has been placed on a cardizem IV drip as well as oral potassium. No other complaints. Review of Systems Review of Systems: All systems reviewed & are unremarkable except as noted in HPI and below PMFSH Past Medical History Medical History Acute cholecystitis 07/2019 treated with antibiotic therapy, no cholecystectomy due to being a poor surgical candidate. 10/08/2019 - returned to hospital with intra-abdominal abscess in the gallbladder fossa and extending around liver - thought to be related to gallbladder perforation. Treated with antibiotics and percutaneous drainage x 3. Alcohol abuse Atrial fibrillation Not on long-term anticoagulation per Cardiology. BPH (benign prostatic hyperplasia) CHF (congestive heart failure) Echocardiogram on 10/20/19 showing EF 55-60% with variable contractility due to atrial fibrillation. Aortic valve sclerosis without hemodynamically significant stenosis by Doppler. Trace TR, moderate pulmonary hypertension. Small circumferential pericardial effusion. Chronic anemia COPD (chronic obstructive pulmonary disease) Essential hypertension GERD (gastroesophageal reflux disease) Histoplasmosis History of BPH History of TIAs Hyperlipidemia Vitamin D deficiency Surgical History Surgical History History of bilateral cataract extraction History of vasectomy Male circumcision Family History Family History Sibling Polio Father Lung cancer Mother Hypertension Social History Social History Social History: Patient was drinking (3) 4 oz drinks of Tequila a day prior to his hospitalization in July. He was recently hospitalized for a month and discharged to [facility] on 11/09/19 from [place]. Primary care physician: Dr. Jean-Claude Crawford Code status: Full code. Surrogate decision maker is Raine phone number [phone]. The patient has 2 children. 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 Smoking packs per day: 1.5 Smoking cigarettes per day: 30.0 Years sm
--- NOTE | 2019-11-11 04:35 | ADMGEN ---
This patient, Lloyd Redman, was admitted to IMU Room 202-. Patient/family oriented to hospital policies and general routines including ID bracelet, bed and alarms, visiting hours, pain management, procedures, bathroom and other care routines, personal items, smoking policy, room service/diet, and visiting hours. Valuables list has been completed. Information on how to activate the Rapid Response Team has been discussed. Patient/Family are encouraged to report perceived risks to care and to ask questions if they do not understand what they are told or what they should do.
[2019-11-11 04:52] LABS: Basophils Percent Auto 0.3 % (0.2-1.2); Eosinophils Absolute Auto 0.1 K/mm3 (0-0.3); Eosinophils Percent Auto 0.7 % (0-4.4); Hematocrit 32.5 % (42.0-52.0); Hemoglobin 10.3 g/dL (14.0-18.0); Immature Granulocyte Absolute 0.04 K/mm3 (0.00-0.031); Immature Granulocyte Percent A 0.4 % (0-0.5); Lymphocytes Absolute Auto 1.72 K/mm3 (0.9-3.2); Lymphocytes Percent Auto 18.7 % (18.3-44.2); Mean Corpuscular HGB Conc 31.7 g/dl (32-36); Mean Corpuscular Hemoglobin 31.6 pg (26-34); Mean Corpuscular Volume 99.7 fl (80-100); Mean Platelet Volume 10.4 fl (7.4-10.4); Monocytes Absolute Auto 0.7 K/mm3 (0.1-0.6); Monocytes Percent Auto 8.1 % (2.6-8.5); Neutrophils Absolute Auto 6.6 K/mm3 (1.3-6.7); Neutrophils Percent Auto 71.8 % (45.5-73.1); Platelet Count Result 203 k/mm3 (150-375); Red Blood Count 3.26 M/mm3 (4.6-6.20); Red Cell Distribution Width 17.7 % (11.5-14.5); White Blood Count 9.2 K/mm3 (4.5-10.0)
[2019-11-11 05:09] LABS: Lactic Acid Reflex 1.6 mmol/L (0.7-2.1)
[2019-11-11 05:14] LABS: Magnesium 1.6 mg/dL (1.6-2.3)
[2019-11-11 05:16] LABS: Anion Gap 9.5 mmol/L (7-16); Blood Urea Nitrogen 25 mg/dL (9-20); Calcium 8.7 mg/dL (8.4-10.2); Carbon Dioxide 27 mmol/L (22-30); Chloride 107 mmol/L (98-107); Estimated CRCL calculation 107 ml/min; Estimated Glomerular Filt Rate > 60; Glucose 125 mg/dL (75-110); Potassium 3.5 mmol/L (3.4-5.0); Sodium 140 mmol/L (137-145)
[2019-11-11 05:24] LABS: Troponin I < 0.012 ng/mL (0.000-0.034)
[2019-11-11 06:44] LABS: Glucose Point of Care 115 (65-105)
[2019-11-11 07:19] LABS: Add Urine Microscopic? YES; Appearance Urine Clear (Clear); Bacteria Urine Trace /hpf; Bilirubin Urine Negative (Negative); Blood Urine 1+ (Negative); Color Urine Yellow (Yellow); Glucose Urine UA Negative (Negative); Ketones Urine Negative (Negative); Leukocyte Esterase Ur 3+ LEU/UL (Negative); Mucus Urine Heavy /lpf; Nitrate Urine Positive (Negative); Protein Urine 1+ mg/dL (Negative); Squamous Epithelial Cell Urine Rare /hpf (Few); WBC Urine >75 /hpf
[2019-11-11 07:20] LABS: Specific Grav Ur > 1.060 (1.001-1.035)
[2019-11-11 07:56] LABS: Troponin I 0.014 ng/mL (0.000-0.034)
--- NOTE | 2019-11-11 09:35 | PM.CNGS ---
Assessment and Plan Assessment and plan (1) Intra-abdominal abscess: Code(s): K65.1 - Peritoneal abscess Status: Acute Assessment and Plan: The patient had a recent, extended hospitalization for 1 month for intra-abdominal abscesses that were thought to be secondary to an obliterated gallbladder. He was treated with percutaneous drainage and a completed course of IV antibiotics per ID's recommendations. He had multiple CT scans during that hospitalization, with the last being on 10/26/19 that is used for comparison to the most recent CT scan from the ER. He was discharged to the SNF with one remaining percutaneous drain that was sitting in the gallbladder fossa and drainage bile, more or less functioning as a cholecystostomy tube. This was accidentally removed, leading to his return to the ER. CT scans reviewed and discussed with the Radiologist and Dr. Gonzales. It appears that he has multiple abdominal fluid collections, with some that have decreased in size, some with slight increase, and also a new collection that is more anterior to the liver near the left hepatic lobe. The fluid collection in both the gallbladder fossa (where the previous percutaneous drain was accidentally removed from) and the new fluid collection that is anterior to the liver, may both be amenable to drainage if needed. Currently, the patient is doing well clinically. He is afebrile, abdominal exam is benign, white blood cell count is normal, and liver function tests are normal. Therefore, we would currently recommend deferring any percutaneous drainage at this time and continuing IV antibiotics and awaiting ID's recommendations. Potentially, we could continue to monitor the patient clinically and see how he progresses. The patient has multiple co-morbidities making him a high risk surgical candidate, no plans for surgical intervention at this time. (2) Atrial fibrillation with rapid ventricular response: Code(s): I48.91 - Unspecified atrial fibrillation Status: Acute Assessment and Plan: Currently on a diltiazem drip. Appears to be in afib on the detailer with heart rate of 120 on my assessment. History of afib and was seen by Cardiology on his last hospitalization. They did not anticoagulate him due to his history of alcohol abuse and frequent falls. Management per Hospitalist. (3) CHF (congestive heart failure): Qualifiers: Heart failure chronicity: unspecified Heart failure type: unspecified Qualified Code(s): I50.9 - Heart failure, unspecified Code(s): I50.9 - Heart failure, unspecified Status: Acute Assessment and Plan: Last echo on 10/20/19 noted. (4) Effusion, pericardium: Code(s): I31.3 - Pericardial effusion (noninflammatory) Status: Acute (5) Pleural effusion: Code(s): J90 - Pleural effusion, not elsewhere classified Status: Acute (6) COPD (chronic obstructive pulmonary disease): Qualifiers: COPD type: unspecified COPD Qualified Code(s): J44.9 - Chronic obstructive pulmonary disease, unspecified Code(s): J44.9 - Chronic obstructive pulmonary disease, unspecified Status: Chronic (7) BPH (benign prostatic hyperplasia): Code(s): N40.0 - Benign prostatic hyperplasia without lower urinary tract symptoms Status: Chronic (8) Anemia: Qualifiers: Anemia type: unspecified type Qualified Code(s): D64.9 - Anemia, unspecified Code(s): D64.9 - Anemia, unspecified Status: Acute (9) Essential hypertension: Code(s): I10 - Essential (primary) hypertension Status: Chronic Additional Plan Discussed the patient's case and plan of care with Dr. Gonzales. History of Present Illness Consult details Consult date: 11/11/19 Reason for consult: other (Multiple intra-abdominal abscesses status post removal of percutaneous abscess drain) Requesting physician: Charis Koo MD Narrative: Lloyd is a 69-year-old Ca
--- NOTE | 2019-11-11 09:50 | ECG_ITS ---
Measurements Intervals [place] Rate: 144 P: [place]: 0 QRS: 61 QRSD: 89 T: 218 QT: 311 QTc: 482 Interpretive Statements ATRIAL FIBRILLATION WITH RAPID VENTRICULAR RESPONSE ST-T WAVE ABNORMALITY IN ANTEROLAT/INF LEADS- CONSIDER ISCHEMIA BASELINE ARTIFACT- AVR, AVL, AVF ABNORMAL ECG Electronically Signed On 11-11-2019 10:29:59 CDT by Michael Cedeno D.O.
--- NOTE | 2019-11-11 12:24 | WPDINFPN2 ---
Progress Note: A&P Assessment and Plan (1) Intra-abdominal abscess: Code(s): K65.1 - Peritoneal abscess Status: Acute Assessment and Plan: Recent intra-abdominal abscess, normal exam and WBC quickly back to normal. Current fluid collections may be aseptic REC No further antibiotics for now. Surgery to see Subjective Date/time seen: 11/11/19 12:24 Objective Data Vital Signs Vital Signs: Vital Signs - 24 hr 11/10/19 23:59 11/11/19 00:46 11/11/19 01:05 Temperature 36.9 C Pulse Rate 103 H 143 H 150 H Respiratory Rate 18 18 Blood Pressure 148/108 H 134/96 H 137/99 H Pulse Oximetry 97 94 11/11/19 01:45 11/11/19 02:37 11/11/19 03:17 Temperature Pulse Rate 140 H 134 H 111 H Respiratory Rate 19 Blood Pressure 146/103 H 168/109 H Pulse Oximetry 97 11/11/19 04:00 11/11/19 04:15 11/11/19 04:34 Temperature 35.6 C L Pulse Rate 95 105 H 113 H Respiratory Rate 15 18 Blood Pressure 119/85 121/93 H 119/85 Pulse Oximetry 98 97 11/11/19 06:00 11/11/19 08:00 11/11/19 10:00 Temperature 36.6 C Pulse Rate 111 H 110 H 122 H Respiratory Rate 20 Blood Pressure 125/85 Pulse Oximetry 98 11/11/19 11:45 11/11/19 12:00 Temperature 37.2 C Pulse Rate 105 H 110 H Respiratory Rate 18 Blood Pressure 137/95 H Pulse Oximetry 99 Intake/Output Intake/Output: Intake & Output 11/08/19 11/09/19 11/10/19 11/11/19 23:59 23:59 23:59 23:59 Intake Total 433 Output Total 350 Balance 83 Meds/Results Medications: Active Medications Generic Name Dose Route Start Last Admin Trade Name Freq PRN Reason Stop Dose Admin Acetaminophen 650 mg 11/11/19 02:27 Tylenol Tablet PO Q4H PRN Mild Pain (1-3) or Fever Diltiazem HCl 100 mg in 100 mls @ 5 mls/hr 11/11/19 00:45 11/11/19 02:37 Cardizem 100 Mg/D5w 100 Ml IV CONT 11/11/19 20:44 10 mg/hr .Q20H STA 10 mls/hr Titration Protocol 5 MG/HR Levalbuterol HCl 1.25 mg 11/11/19 03:28 Xopenex 1.25 Mg/0.5 Ml INHALATION Q6HRT PRN shortness of breath Radiology Results: ITS Impressions Abdomen/Pelvis CT 11/11/19 06:13 IMPRESSION: Multiple abscesses, including one new abscess along the anterior aspect of the medial segment of the right hepatic lobe, increased size of a left infrahepatic abscess; diminished size of abscesses in the right infrahepatic area, left paracolic gutter and lower pelvis. Removal of percutaneous drainage catheter at anterior aspect of left hepatic lobe since 10/26/2019 Persistent mild to moderate pericardial effusion and mild bilateral pleural effusions Cardiomegaly, extensive coronary atherosclerosis Right renal cysts Diverticulosis of left and right colon Chest X-Ray 11/11/19 07:12 IMPRESSION: Cardiomegaly, mild congestive heart failure, increased since 11/08/2019 Patchy infiltrates and/atelectasis involving primarily the lower lobes, relatively stable since 11/08/2019 Labs Labs: Laboratory Results - last 24 hr 11/11/19 11/11/19 11/11/19 00:35 00:35 00:35 WBC 10.4 H RBC 3.43 L Hgb 10.7 L Hct 34.1 L MCV 99.4 MCH 31.2 MCHC 31.4 L RDW 17.7 H Plt Count 230 MPV 10.7 H Immature Gran % (Auto) 0.6 H Neut % (Auto) 72.4 Lymph % (Auto) 18.2 L [place] % (Auto) 7.9 Eos % (Auto) 0.5 Baso % (Auto) 0.4 Lymph # (Auto) 1.89 [place] # (Auto) 0.8 H Eos # (Auto) 0.1 Baso # (Auto) 0.0 Abs Immat Gran (auto) 0.06 H Absolute Neuts (auto) 7.5 H Absolute Nucleated RBC 0.0 Nucleated RBC % 0.0 PT 15.6 H INR 1.3 Sodium 140 Potassium 3.2 L Chloride 104 Carbon Dioxide 29 Anion Gap 10.2 BUN 26 H Creatinine 0.80 Estim Creat Clear Calc 77 Estimated GFR > 60 Glucose 110 POC Capillary Glucose Lactic Acid Calcium 9.0 Magnesium Total Bilirubin 0.7 AST 20 ALT 15 Alkaline Phosphatase 106 Troponin I NT-
--- NOTE | 2019-11-11 14:21 | CONS_ITS ---
DATE OF CONSULTATION: 11/11/2019 REASON FOR CONSULTATION: Intraabdominal abscess. HISTORY OF PRESENT ILLNESS: The patient is a 69-year-old male who in July had acute cholecystitis. He was treated briefly as an inpatient, but did not have any operative intervention. He returned to the hospital on September 30 and was found to have multiple abscesses in the gallbladder bed with a suspicion for ruptured gallbladder. He has had multiples drains by Interventional Radiology and received prolonged IV antibiotics in the form of imipenem for 14 days. His hospital course from my standpoint was also complicated by healthcare-associated pneumonia requiring additional antibiotic therapy. By the time of his discharge on the or November 08, he was off his antibiotics. He returned to the hospital last evening after his drain fell out or was pulled out, the patient is unsure. Here, he was found to have atrial fibrillation with rapid ventricular response and was admitted. He was given a single dose of vancomycin. Consultation requested. He denies any abdominal pain, fever, chills, sweats, nausea, vomiting, anorexia, flank pain, and shoulder pain on the right side or dyspnea. ALLERGIES: PENICILLIN CAUSED HIVES. HE TOLERATED THE CARBAPENEMS. PRESENT MEDICATIONS: Vancomycin. No immunosuppressants. HABITS: Alcohol to excess, ex-smoker. PAST MEDICAL HISTORY: Vasectomy, cataracts, previous histoplasmosis, GERD, BPH, TIAs, hyperlipidemia, hypertension, COPD, heart failure, BPH, AF as above. REVIEW OF SYSTEMS: 14-point review is otherwise negative. FAMILY HISTORY: Not pertinent to his present illness. 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 PHYSICAL EXAMINATION: GENERAL: This is a middle-aged male who appears older than his actual age, well nourished, no acute distress. VITAL SIGNS: Afebrile since arrival. Pulse 110, respirations 18, 99% on room air, 137/95. SKIN: Pale, warm, and dry. No rashes. EENT: Conjunctivae are normal. Pupils equal, round. The oral mucosa is dry, otherwise normal findings. NECK: No meningismus or mass. LUNGS: Clear to auscultation and percussion. Good air entry. Breath sounds are vesicular. CARDIAC: Irregular, tachycardic. No murmurs or gallops. Pulse 2+. ABDOMEN: Morbidly obese. Drain exit sites are crusted and closed with no satellite lesions. He has no abdominal wall erythema nor warmth. Contour is otherwise normal. He has no hepatosplenomegaly. No masses. Nontender. Normal bowel sounds. EXTREMITIES: No clubbing, cyanosis. He has 2+ nonpitting edema at the ankles. Old right IJ site is normal to inspection and palpation. LABORATORY DATA: White count was minimally high initially, now normal at 9.2, hemoglobin 10.3, platelets are 203, differential is normal. Chemistry normal, except for BUN 25, creatinine 0.6, glucose 125, albumin 3.4. Urinalysis multiple abnormalities. Blood cultures redone are no growth after short incubation. RADIOLOGY: Multiple fluid collections in the abdomen as listed. ASSESSMENT: 1. Recent abdominal abscess clinically resolved though not radiographically. These may be an aseptic fluid collections at this time. His white blood cell count has rapidly returned to normal and his abdomen exam is benign. 2. Chronic and acute cholecystitis. 3. Past alcohol to excess. 4. Recent healthcare-associated pneumonia also appears resolved. RECOMMENDATIONS: 1. No further antibiotics. 2. Surgical evaluation in process. Thank you very much for asking me to see him. ANASTASIA PRATER M.D. CLINICAL BIOSTATISTICS DIRECTOR 14:1
[2019-11-11 16:18] LABS: Glucose Point of Care 90 (65-105)
--- NOTE | 2019-11-11 17:42 | PM.IMPN ---
Progress Note: A&P Assessment and Plan (1) Atrial fibrillation with rapid ventricular response: Code(s): I48.91 - Unspecified atrial fibrillation Status: Acute Assessment and Plan: Admit to IMU, telemetry, Trend troponin. Continue Cardizem IV for rate control. TSH w/ reflex T4. Check magnesium. Cardiology consult in am. 11/11/19 17:42 patient is 69-year-old male with history of abdominal wall abscess and patient was recently treated with drain and IV antibiotics imipenem patient had a respiratory failure and was intubated patient was recently discharged longterm with drain, the drain fell off and patient was sent to emergency department for further evaluation, does have history of atrial fibrillation upon arrival he was in RVR and patient was started on diltiazem drip and the rate is trending down, patient was seen by cardiology recommended the patient is not candidate for anticoagulation with history of alcoholic and several fall, patient was seen by Dr. jett does not recommend starting any antibiotic, patient, is seen by surgery team to further evaluate if patient needs drain, patient is clinically stable will continue to monitor and have a PT OT evaluate the patient (2) Hypokalemia: Code(s): E87.6 - Hypokalemia Status: Acute Assessment and Plan: Potassium was replaced in ER. Check BMP in am. (3) CHF (congestive heart failure): Qualifiers: Heart failure chronicity: unspecified Heart failure type: unspecified Qualified Code(s): I50.9 - Heart failure, unspecified Code(s): I50.9 - Heart failure, unspecified Status: Acute Assessment and Plan: Lasix IV daily. (4) Abdominal abscess: Status: Acute Assessment and Plan: Continue IV antibiotics. Infectious disease consult in am. General surgery has been consulted by ER provider. (5) Chronic alcohol use: Code(s): Z72.89 - Other problems related to lifestyle Status: Chronic Assessment and Plan: Thiamine IV daily. Monitor for any signs or symptoms of withdrawal. (6) COPD (chronic obstructive pulmonary disease): Qualifiers: COPD type: unspecified COPD Qualified Code(s): J44.9 - Chronic obstructive pulmonary disease, unspecified Code(s): J44.9 - Chronic obstructive pulmonary disease, unspecified Status: Chronic Assessment and Plan: PRN bronchodilators. (7) Essential hypertension: Code(s): I10 - Essential (primary) hypertension Status: Chronic Assessment and Plan: Monitor blood pressure. Resume beta edmund in am. (8) GERD (gastroesophageal reflux disease): Qualifiers: Esophagitis presence: esophagitis presence not specified Qualified Code(s): K21.9 - Gastro-esophageal reflux disease without esophagitis Code(s): K21.9 - Gastro-esophageal reflux disease without esophagitis Status: Chronic Assessment and Plan: PPI therapy Additional Plan I suspect the patient will likely need at least 2 nights of inpatient medical therapy for his atrial fibrillation w/ RVR, abdominal abscesses, and comorbid conditions listed above. Date of service was 11/11/2019 at 02:40 hrs. Subjective Date/time seen: 11/11/19 17:42 patient is 69-year-old male with history of abdominal wall abscess and patient was recently treated with drain and IV antibiotics imipenem patient had a respiratory failure and was intubated patient was recently discharged longterm with drain, the drain fell off and patient was sent to emergency department for further evaluation, does have history of atrial fibrillation upon arrival he was in RVR and patient was started on diltiazem drip and the rate is trending down, patient was seen by cardiology recommended the patient is not candidate for anticoagulation with history of alcoholic and several fall, patient was seen by Dr. jett does not recommend starting any antibiotic, patient, is seen by jolie
[2019-11-12] VITALS (26 sets, daily range): BP systolic 120–141; BP diastolic 68–96; PULSE 76–139; RESP 16–20; TEMP 35.7–37.4; O2SAT 96–99
[2019-11-12 00:18] LABS: Glucose Point of Care 88 (65-105)
[2019-11-12 04:52] LABS: Basophils Percent Auto 0.5 % (0.2-1.2); Eosinophils Absolute Auto 0.1 K/mm3 (0-0.3); Eosinophils Percent Auto 1.2 % (0-4.4); Hematocrit 32.1 % (42.0-52.0); Hemoglobin 10.2 g/dL (14.0-18.0); Immature Granulocyte Absolute 0.04 K/mm3 (0.00-0.031); Immature Granulocyte Percent A 0.5 % (0-0.5); Lymphocytes Absolute Auto 1.35 K/mm3 (0.9-3.2); Lymphocytes Percent Auto 17.8 % (18.3-44.2); Mean Corpuscular HGB Conc 31.8 g/dl (32-36); Mean Corpuscular Hemoglobin 31.3 pg (26-34); Mean Corpuscular Volume 98.5 fl (80-100); Mean Platelet Volume 10.6 fl (7.4-10.4); Monocytes Absolute Auto 0.6 K/mm3 (0.1-0.6); Monocytes Percent Auto 7.5 % (2.6-8.5); Neutrophils Absolute Auto 5.5 K/mm3 (1.3-6.7); Neutrophils Percent Auto 72.5 % (45.5-73.1); Platelet Count Result 219 k/mm3 (150-375); Red Blood Count 3.26 M/mm3 (4.6-6.20); Red Cell Distribution Width 17.6 % (11.5-14.5); White Blood Count 7.6 K/mm3 (4.5-10.0)
[2019-11-12 05:05] LABS: Alanine Aminotransferase 13 U/L (4-50); Albumin Level 2.9 g/dL (3.5-5.1); Alkaline Phosphatase 89 U/L (38-126); Anion Gap 8.9 mmol/L (7-16); Aspartate Amino Transferase 17 U/L (17-59); Bilirubin,Total 0.6 mg/dL (0.2-1.3); Blood Urea Nitrogen 18 mg/dL (9-20); Calcium 8.7 mg/dL (8.4-10.2); Carbon Dioxide 27 mmol/L (22-30); Chloride 106 mmol/L (98-107); Estimated CRCL calculation 107 ml/min; Estimated Glomerular Filt Rate > 60; Glucose 93 mg/dL (75-110); Magnesium 1.5 mg/dL (1.6-2.3); Potassium 2.9 mmol/L (3.4-5.0); Sodium 139 mmol/L (137-145)
[2019-11-12 06:08] LABS: Glucose Point of Care 103 (65-105)
[2019-11-12] MEDS: MAGNESIUM SULF 2 GM/WATER 50ML 2 GM/50 ML BAG IVPB (06:35)
[2019-11-12 08:12] LABS: Glucose Point of Care 111 (65-105)
--- NOTE | 2019-11-12 10:15 | WPDCN ---
Assessment and Plan Assessment and plan (1) Atrial fibrillation with rapid ventricular response: Code(s): I48.91 - Unspecified atrial fibrillation Status: Acute Assessment and Plan: Patient with persistent atrial fibrillation, previously controlled with high-dose metoprolol and diltiazem, readmitted with RVR, now on a Cardizem drip. unsure of etiology; surgery and ID do not think the patient is septic or actively infected. Will resume his p.o. metoprolol and hopefully switch to p.o. Cardizem in the next 1 or 2 days. Thought to be a poor candidate for oral anticoagulation because of falls and alcohol abuse. (2) Abnormal EKG: Code(s): R94.31 - Abnormal electrocardiogram [ECG] [EKG] Status: Acute Assessment and Plan: Patient has some new T-wave inversion anterolaterally but denies any signs or symptoms of cardiac ischemia. Due to electrolyte problems or ischemia fr RVR? Check troponin X 1 and repeat EKG in a.m. (3) Hypokalemia: Code(s): E87.6 - Hypokalemia Status: Acute Assessment and Plan: Severe hypokalemia, 2.9, getting repleted with IV potassium. Recheck lytes in a.m. (4) Hypomagnesemia: Code(s): E83.42 - Hypomagnesemia Status: Acute Assessment and Plan: Repleted. (5) Gallbladder abscess: Code(s): K81.0 - Acute cholecystitis Status: Acute Assessment and Plan: GB Drain fell out, with fluid collections by CT scan but thought not to be actively infected Being treated conservatively. HPI Data of Consult Date/Time: 11/12/19 10:15 Requesting Physician: Abiodun Chavira MD Primary Care Provider: Jean-Claude Crawford MD Consult Narrative Narrative: Date of service: 11/12/2019 Lloyd Redman is a 69 year old male we were asked to see at the request Dr. Watson for advice and opinion regarding his AFib RVR in consultation. The patient has chronic AFib and his heart rate appeared well controlled when discharged on 06/[address] [facility], taking metoprolol tartrate 100 mg b.i.d. and diltiazem 240 mg daily. He had been hospitalized for several weeks for cholecystitis and hepatic abscess requiring percutaneous drainage. The [facility]bladder tube fell [facility] at the [facility] and he presented to the emergency room again last night. He has been evaluated by surgery and Dr. Clarke who find that though he does have fluid collections by CT scan his exam is benign and there are no definite plans for any intervention or antibiotics at this time. However, his AFib rate was up to 140s on admission and his p.o. diltiazem and metoprolol were held; he was started on a Cardizem drip at 10 milligrams/hour. Current heart rate is running 105-120's bpm. The patient is denying any problems with shortness of breath , palpitation or chest discomfort. He cannot tell me anything about his prior hospitalization. When we had seen him on his previous admission, his AFib rate was difficult to control requiring 2 drug therapy. He sometimes had trouble with hypotension. He was deemed not a candidate for anticoagulation because of falls and alcohol abuse. Indeed apparently fell out of bed prior to this admission. Echo in July 2019 showed EF 45-50% with mild mitral regurgitation and biatrial enlargement. 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
[2019-11-12 11:41] LABS: Glucose Point of Care 114 (65-105)
[2019-11-12] MEDS: METOPROLOL TARTRATE 50 MG TAB 100 MG PO ×2 (12:04→21:13)
[2019-11-12] MEDS: MAGNESIUM OXIDE 400 MG TABLET PO (12:04)
--- NOTE | 2019-11-12 12:04 | PM.PNGS ---
Progress Note: A&P Assessment and Plan (1) Intra-abdominal abscess: Code(s): K65.1 - Peritoneal abscess Status: Acute Assessment and Plan: exam completely benign, WBC normalized, will cont to follow at this time (2) Atrial fibrillation with rapid ventricular response: Code(s): I48.91 - Unspecified atrial fibrillation Status: Acute Assessment and Plan: mgmt per cardiology, no surgical plans at this point so ok to anticoagulate (3) CHF (congestive heart failure): Qualifiers: Heart failure chronicity: unspecified Heart failure type: unspecified Qualified Code(s): I50.9 - Heart failure, unspecified Code(s): I50.9 - Heart failure, unspecified Status: Acute Assessment and Plan: stable Subjective Subjective Date/Time Seen: 11/12/19 12:04 feels ok, no abd complaints Review of Systems Constitutional: Constitutional: Denies chills, Reports fatigue, Reports lethargy and Reports weakness Cardiovascular: Cardiovascular: Denies chest pain and Denies palpitations Respiratory: Respiratory: Denies dyspnea Gastrointestinal: Gastrointestinal: Denies abdominal pain, Denies bloating, Denies constipation, Denies diarrhea, Denies nausea and Denies vomiting Exam Const: General: no acute distress Resp: Auscultation: diminished lung sounds Cardio: Rate: regular rate Rhythm: regular rhythm GI: Other: SNTND Objective Data Vital Signs Vital Signs: Vital Signs - 24 hr 11/11/19 14:00 11/11/19 16:00 11/11/19 18:00 Temperature 36.6 C Pulse Rate 112 H 120 H 122 H Respiratory Rate 20 Blood Pressure 132/84 Pulse Oximetry 99 11/11/19 19:19 11/11/19 20:00 11/11/19 21:16 Temperature 37.1 C Pulse Rate 121 H 121 H 131 H Respiratory Rate 18 18 Blood Pressure 140/96 H 140/96 H Pulse Oximetry 100 100 11/11/19 22:00 11/11/19 23:53 11/12/19 00:00 Temperature 36.3 C L Pulse Rate 122 H 106 H 106 H Respiratory Rate 18 18 Blood Pressure 125/74 125/74 Pulse Oximetry 98 98 11/12/19 02:00 11/12/19 04:00 11/12/19 04:28 Temperature 37.4 C Pulse Rate 109 H 122 H 122 H Respiratory Rate 16 16 Blood Pressure 133/95 H Pulse Oximetry 99 99 11/12/19 05:17 11/12/19 06:00 11/12/19 06:35 Temperature Pulse Rate 123 H 112 H 114 H Respiratory Rate Blood Pressure Pulse Oximetry 11/12/19 08:00 11/12/19 10:00 Temperature 36.8 C Pulse Rate 123 H 139 H Respiratory Rate 20 Blood Pressure 130/83 Pulse Oximetry 97 Intake/Output Intake/Output: Intake & Output 11/09/19 11/10/19 11/11/19 11/12/19 23:59 23:59 23:59 23:59 Intake Total 883 100 Output Total 625 200 Balance 258 -100 Meds/Results Medications: Active Medications Generic Name Dose Route Start Last Admin Trade Name Freq PRN Reason Stop Dose Admin Acetaminophen 650 mg 11/11/19 02:27 Tylenol Tablet PO Q4H PRN Mild Pain (1-3) or Fever Aspirin 325 mg 11/12/19 09:00 Aspirin Ec PO DAILY [facility] Folic Acid 1 mg 11/12/19 09:00 Folic Acid PO DAILY [facility] Furosemide 40 mg 11/12/19 09:00 Lasix Tablet PO DAILY [facility] Diltiazem HCl 100 mg in 100 mls @ 10 mls/hr 11/11/19 13:25 11/12/19 06:35 Cardizem 100 Mg/D5w 100 Ml IV CONT 10 mg/hr .Q10H MONET 10 mls/hr Administration 10 MG/HR Levalbuterol HCl 1.25 mg 11/11/19 03:28 Xopenex 1.25 Mg/0.5 Ml INHALATION Q6HRT PRN shortness of breath Levalbuterol HCl 1.25 mg 11/12/19 14:00 Xopenex 1.25 Mg/0.5 Ml INHALATION Q6HRT [facility] Magnesium Oxide 400 mg 11/12/19 09:00 Mag-Ox PO QAM [facility] Metoprolol Tartrate 100 mg 11/12/19 11:00 Lopressor PO Q12HR [facility] Multivitamins Therapeutic 1 tablet 11/12/19 09:00 Multivitamins Therapeutic(*Bkc PO DAILY [facility] Pantoprazole Sodium 40 mg 11/12/19 09:00 Protonix PO QAM [facility] Polyethylene Glycol 17 gm 11/12/19 09:00 Miralax PO QAM [facility]
[2019-11-12] MEDS: PANTOPRAZOLE 40 MG TABLET PO (12:05)
[2019-11-12] MEDS: CHOLECALCIFEROL 1,000 UNIT TABLET 5000 UNITS PO (12:05)
[2019-11-12] MEDS: MULTIVITAMINS THERAPEUTIC TAB (*BKC) 1 TABLET PO (12:05)
[2019-11-12] MEDS: FOLIC ACID 1 MG TABLET PO (12:05)
[2019-11-12] MEDS: QUEtiapine FUMARATE 12.5 MG TABLET PO ×2 (12:05→21:13)
[2019-11-12] MEDS: ASPIRIN 325 MG ENTERIC TABLET PO (12:05)
[2019-11-12] MEDS: THIAMINE HCL 100 MG TABLET PO (12:05)
[2019-11-12] MEDS: TIMOLOL MALEATE 0.5% OP SOLN 5 ML BOTTLE 1 DROP EACH EYE ×2 (12:06→21:13)
[2019-11-12] MEDS: polyethylene glycoL 3350 17 GM POWD.PACK PO (12:06)
[2019-11-12] MEDS: FUROSEMIDE 40 MG TABLET PO (12:06)
--- NOTE | 2019-11-12 13:53 | PCPTNOTE ---
Attempted PT evaluation this PM. Hold evaluation this date due to altered mental status. Will attempt again tomorrow morning.
--- NOTE | 2019-11-12 13:56 | PCOTNOTE ---
OT evaluation attempted. Patient confused and unable to follow commands at this time. Hold today per RN due to AMS. Will attempt OT evaluation at later time when medically appropriate.
--- NOTE | 2019-11-12 14:02 | WPDINFPN2 ---
Progress Note: A&P Assessment and Plan (1) Intra-abdominal abscess: Code(s): K65.1 - Peritoneal abscess Status: Acute Assessment and Plan: Recent intra-abdominal abscess, normal exam and WBC remains normal. Current fluid collections may be aseptic REC No further antibiotics for now. Ok discharge Subjective Date/time seen: 11/12/19 14:02 Interval history: good appetite no pain Exam Narrative: Exam Narrative: afebrile Const: General: no acute distress GI: Inspection: non-distended GI Palp: Yes Soft to palpation, No Tenderness to palpation present (GI) and No Guarding due to palpation present (GI) Objective Data Vital Signs Vital Signs: Vital Signs - 24 hr 11/11/19 16:00 11/11/19 18:00 11/11/19 19:19 Temperature 36.6 C 37.1 C Pulse Rate 120 H 122 H 121 H Respiratory Rate 20 18 Blood Pressure 132/84 140/96 H Pulse Oximetry 99 100 11/11/19 20:00 11/11/19 21:16 11/11/19 22:00 Temperature Pulse Rate 121 H 131 H 122 H Respiratory Rate 18 Blood Pressure 140/96 H Pulse Oximetry 100 11/11/19 23:53 11/12/19 00:00 11/12/19 02:00 Temperature 36.3 C L Pulse Rate 106 H 106 H 109 H Respiratory Rate 18 18 Blood Pressure 125/74 125/74 Pulse Oximetry 98 98 11/12/19 04:00 11/12/19 04:28 11/12/19 05:17 Temperature 37.4 C Pulse Rate 122 H 122 H 123 H Respiratory Rate 16 16 Blood Pressure 133/95 H Pulse Oximetry 99 99 11/12/19 06:00 11/12/19 06:35 11/12/19 08:00 Temperature 36.8 C Pulse Rate 112 H 114 H 123 H Respiratory Rate 20 Blood Pressure 130/83 Pulse Oximetry 97 11/12/19 10:00 11/12/19 12:00 11/12/19 12:04 Temperature 36.6 C Pulse Rate 139 H 134 H 127 H Respiratory Rate 20 Blood Pressure 141/96 H Pulse Oximetry 97 Intake/Output Intake/Output: Intake & Output 11/09/19 11/10/19 11/11/19 11/12/19 23:59 23:59 23:59 23:59 Intake Total 883 100 Output Total 625 200 Balance 258 -100 Meds/Results Medications: Active Medications Generic Name Dose Route Start Last Admin Trade Name Freq PRN Reason Stop Dose Admin Acetaminophen 650 mg 11/11/19 02:27 Tylenol Tablet PO Q4H PRN Mild Pain (1-3) or Fever Aspirin 325 mg 11/12/19 09:00 11/12/19 12:05 Aspirin Ec PO 325 mg DAILY MONET Administration Folic Acid 1 mg 11/12/19 09:00 11/12/19 12:05 Folic Acid PO 1 mg DAILY MONET Administration Furosemide 40 mg 11/12/19 09:00 11/12/19 12:06 Lasix Tablet PO 40 mg DAILY MONET Administration Diltiazem HCl 100 mg in 100 mls @ 10 mls/hr 11/11/19 13:25 11/12/19 06:35 Cardizem 100 Mg/D5w 100 Ml IV CONT 10 mg/hr .Q10H MONET 10 mls/hr Administration 10 MG/HR Levalbuterol HCl 1.25 mg 11/11/19 03:28 Xopenex 1.25 Mg/0.5 Ml INHALATION Q6HRT PRN shortness of breath Levalbuterol HCl 1.25 mg 11/12/19 14:00 Xopenex 1.25 Mg/0.5 Ml INHALATION Q6HRT [facility] Magnesium Oxide 400 mg 11/12/19 09:00 11/12/19 12:04 Mag-Ox PO 400 mg QAM MONET Administration Metoprolol Tartrate 100 mg 11/12/19 11:00 11/12/19 12:04 Lopressor PO 100 mg Q12HR [facility] Administration Multivitamins Therapeutic 1 tablet 11/12/19 09:00 11/12/19 12:05 Multivitamins Therapeutic(*Bkc PO 1 tablet DAILY MONET Administration Pantoprazole Sodium 40 mg 11/12/19 09:00 11/12/19 12:05 Protonix PO 40 mg QAM MONET Administration Polyethylene Glycol 17 gm 11/12/19 09:00 11/12/19 12:06 Miralax PO 17 gm QAM MONET Administration Potassium Chloride 40 meq 11/13/19 08:00 Kcl Tablet PO DAILY@0800 [facility] Quetiapine Fumarate 12.5 mg 11/12/19 09:00 11/12/19 12:05 Seroquel PO 12.5 mg Q12HR MONET Administration Thiamine HCl 100 mg 11/12/19 09:00 11/12/19 12:05 Vitamin B-1 PO 100 mg QAM MONET Administration Timolol Maleate 1 drop 11/12/19 09:00 11/12/19 12:06 Timoptic 0.5% Ophth Soln EACH EYE 1 drop Q12HR MONET Administration
[2019-11-12] MEDS: POTASSIUM CHLORIDE 20 MEQ PACKET (FOR LIQUID) 40 MEQ PO (14:24)
[2019-11-12 15:20] LABS: Anion Gap 7.8 mmol/L (7-16); Blood Urea Nitrogen 16 mg/dL (9-20); Calcium 8.3 mg/dL (8.4-10.2); Carbon Dioxide 28 mmol/L (22-30); Chloride 105 mmol/L (98-107); Estimated CRCL calculation 107 ml/min; Estimated Glomerular Filt Rate > 60; Glucose 149 mg/dL (75-110); Potassium 3.8 mmol/L (3.4-5.0); Sodium 137 mmol/L (137-145)
[2019-11-12 15:31] LABS: Troponin I < 0.012 ng/mL (0.000-0.034)
--- NOTE | 2019-11-12 15:53 | PM.IMPN ---
Progress Note: A&P Assessment and Plan (1) Atrial fibrillation with rapid ventricular response: Code(s): I48.91 - Unspecified atrial fibrillation Status: Acute Assessment and Plan: Admit to IMU, telemetry, Trend troponin. Continue Cardizem IV for rate control. TSH w/ reflex T4. Check magnesium. Cardiology consult in am. 11/12/19 15:53 patient is 69-year-old male with history of abdominal wall abscess and patient was recently treated with drain and IV antibiotics imipenem patient had a respiratory failure and was intubated patient was recently discharged senior living with drain, the drain fell off and patient was sent to emergency department for further evaluation, does have history of atrial fibrillation upon arrival he was in RVR and patient was started on diltiazem drip and the rate is trending down, patient was seen by cardiology recommended the patient is not candidate for anticoagulation with history of alcoholic and several fall, today patient was seen by yard jockey and added metoprolol and rate improve will stop drip and start patient on diltiazem PO, patient was seen by Dr. jett does not recommend starting any antibiotic, patient, is seen by surgery team to further evaluate if patient needs drain, patient is clinically stable will continue to monitor and have a PT OT evaluate the patient (2) Hypokalemia: Code(s): E87.6 - Hypokalemia Status: Acute Assessment and Plan: Potassium was replaced in ER. Check BMP in am. (3) CHF (congestive heart failure): Qualifiers: Heart failure chronicity: unspecified Heart failure type: unspecified Qualified Code(s): I50.9 - Heart failure, unspecified Code(s): I50.9 - Heart failure, unspecified Status: Acute Assessment and Plan: Lasix IV daily. (4) Abdominal abscess: Status: Acute Assessment and Plan: Continue IV antibiotics. Infectious disease consult in am. General surgery has been consulted by ER provider. (5) Chronic alcohol use: Code(s): Z72.89 - Other problems related to lifestyle Status: Chronic Assessment and Plan: Thiamine IV daily. Monitor for any signs or symptoms of withdrawal. (6) COPD (chronic obstructive pulmonary disease): Qualifiers: COPD type: unspecified COPD Qualified Code(s): J44.9 - Chronic obstructive pulmonary disease, unspecified Code(s): J44.9 - Chronic obstructive pulmonary disease, unspecified Status: Chronic Assessment and Plan: PRN bronchodilators. (7) Essential hypertension: Code(s): I10 - Essential (primary) hypertension Status: Chronic Assessment and Plan: Monitor blood pressure. Resume beta edmund in am. (8) GERD (gastroesophageal reflux disease): Qualifiers: Esophagitis presence: esophagitis presence not specified Qualified Code(s): K21.9 - Gastro-esophageal reflux disease without esophagitis Code(s): K21.9 - Gastro-esophageal reflux disease without esophagitis Status: Chronic Assessment and Plan: PPI therapy Subjective Date/time seen: 11/12/19 15:53 patient is 69-year-old male with history of abdominal wall abscess and patient was recently treated with drain and IV antibiotics imipenem patient had a respiratory failure and was intubated patient was recently discharged senior living with drain, the drain fell off and patient was sent to emergency department for further evaluation, does have history of atrial fibrillation upon arrival he was in RVR and patient was started on diltiazem drip and the rate is trending down, patient was seen by cardiology recommended the patient is not candidate for anticoagulation with history of alcoholic and several fall, today patient was seen by yard jockey and added metoprolol and rate improve will stop drip and start patient on diltiazem PO, patient was seen by Dr. jett does not recommend starting any antibiotic, patient, is se
[2019-11-12 16:30] LABS: Glucose Point of Care 133 (65-105)
[2019-11-12 19:01] LABS: Glucose Point of Care 215 (65-105)
[2019-11-13] VITALS (21 sets, daily range): BP systolic 114–135; BP diastolic 81–97; PULSE 67–108; RESP 16–22; TEMP 36.1–37; O2SAT 94–100
[2019-11-13 04:45] LABS: Basophils Percent Auto 0.3 % (0.2-1.2); Eosinophils Absolute Auto 0.1 K/mm3 (0-0.3); Eosinophils Percent Auto 1.3 % (0-4.4); Hematocrit 30.7 % (42.0-52.0); Hemoglobin 9.8 g/dL (14.0-18.0); Immature Granulocyte Absolute 0.04 K/mm3 (0.00-0.031); Immature Granulocyte Percent A 0.5 % (0-0.5); Lymphocytes Absolute Auto 1.41 K/mm3 (0.9-3.2); Lymphocytes Percent Auto 18.7 % (18.3-44.2); Mean Corpuscular HGB Conc 31.9 g/dl (32-36); Mean Corpuscular Hemoglobin 31.4 pg (26-34); Mean Corpuscular Volume 98.4 fl (80-100); Mean Platelet Volume 10.4 fl (7.4-10.4); Monocytes Absolute Auto 0.6 K/mm3 (0.1-0.6); Monocytes Percent Auto 7.7 % (2.6-8.5); Neutrophils Absolute Auto 5.4 K/mm3 (1.3-6.7); Neutrophils Percent Auto 71.5 % (45.5-73.1); Platelet Count Result 197 k/mm3 (150-375); Red Blood Count 3.12 M/mm3 (4.6-6.20); Red Cell Distribution Width 17.8 % (11.5-14.5); White Blood Count 7.5 K/mm3 (4.5-10.0)
[2019-11-13 05:00] LABS: Alanine Aminotransferase 12 U/L (4-50); Albumin Level 2.7 g/dL (3.5-5.1); Alkaline Phosphatase 89 U/L (38-126); Anion Gap 9.3 mmol/L (7-16); Aspartate Amino Transferase 16 U/L (17-59); Bilirubin,Total 0.6 mg/dL (0.2-1.3); Blood Urea Nitrogen 16 mg/dL (9-20); Calcium 8.3 mg/dL (8.4-10.2); Carbon Dioxide 28 mmol/L (22-30); Chloride 105 mmol/L (98-107); Estimated CRCL calculation 107 ml/min; Estimated Glomerular Filt Rate > 60; Glucose 105 mg/dL (75-110); Potassium 3.3 mmol/L (3.4-5.0); Sodium 139 mmol/L (137-145)
--- NOTE | 2019-11-13 08:00 | ECG_ITS ---
Measurements Intervals [place] Rate: 87 P: SD: 0 QRS: 17 QRSD: 79 T: 172 QT: 367 QTc: 442 Interpretive Statements ATRIAL FIBRILLATION ST-T WAVE ABNORMALITY IN ANTEROLAT/HIGH LAT LEADS- CONSIDER ISCHEMIA BASELINE ARTIFACT- I, III, AVR, AVL, AVF, V1 ABNORMAL ECG Electronically Signed On 11-13-2019 9:57:36 CDT by Michael Cedeno D.O.
[2019-11-13] MEDS: MULTIVITAMINS THERAPEUTIC TAB (*BKC) 1 TABLET PO (08:16)
[2019-11-13] MEDS: THIAMINE HCL 100 MG TABLET PO (08:16)
[2019-11-13] MEDS: MAGNESIUM OXIDE 400 MG TABLET PO (08:16)
[2019-11-13] MEDS: CHOLECALCIFEROL 1,000 UNIT TABLET 5000 UNITS PO (08:16)
[2019-11-13] MEDS: FUROSEMIDE 40 MG TABLET PO (08:16)
[2019-11-13] MEDS: FOLIC ACID 1 MG TABLET PO (08:17)
[2019-11-13] MEDS: METOPROLOL TARTRATE 50 MG TAB 100 MG PO ×2 (08:17→20:30)
[2019-11-13] MEDS: PANTOPRAZOLE 40 MG TABLET PO (08:17)
[2019-11-13] MEDS: POTASSIUM CHLORIDE 10 MEQ TABLET.ER 40 MEQ PO (08:17)
[2019-11-13] MEDS: QUEtiapine FUMARATE 12.5 MG TABLET PO ×2 (08:17→20:30)
[2019-11-13] MEDS: polyethylene glycoL 3350 17 GM POWD.PACK PO (08:18)
[2019-11-13] MEDS: TIMOLOL MALEATE 0.5% OP SOLN 5 ML BOTTLE 1 DROP EACH EYE ×2 (08:18→20:30)
[2019-11-13] MEDS: ASPIRIN 325 MG ENTERIC TABLET PO (08:18)
--- NOTE | 2019-11-13 09:01 | PM.PNGS ---
Progress Note: A&P Assessment and Plan (1) Hepatic abscess: Code(s): K75.0 - Abscess of liver Status: Acute Assessment and Plan: cont to have benign exam and normal WBC, no acute surgical intervention at this point, will sign off, call c ?s, issues Subjective Subjective Date/Time Seen: 11/13/19 09:01 doing well this am, no abd complaints, zabrina diet Review of Systems Constitutional: Constitutional: Reports fatigue, Reports lethargy and Reports weakness Cardiovascular: Cardiovascular: Denies chest pain Respiratory: Respiratory: Reports dyspnea, Reports dyspnea on exertion and Reports wheezing Gastrointestinal: Gastrointestinal: Denies abdominal pain, Denies bloating, Denies constipation, Denies diarrhea, Denies nausea and Denies vomiting Exam Const: General: no acute distress Resp: Auscultation: wheezes and diminished lung sounds Cardio: Rate: regular rate Rhythm: regular rhythm GI: Other: SNTND Objective Data Vital Signs Vital Signs: Vital Signs - 24 hr 11/12/19 10:00 11/12/19 12:00 11/12/19 12:04 Temperature 36.6 C Pulse Rate 139 H 134 H 127 H Respiratory Rate 20 Blood Pressure 141/96 H Pulse Oximetry 97 11/12/19 14:00 11/12/19 14:36 11/12/19 14:46 Temperature Pulse Rate 76 81 80 Respiratory Rate 18 18 Blood Pressure Pulse Oximetry 11/12/19 15:21 11/12/19 15:27 11/12/19 16:00 Temperature 36.9 C 36.9 C 36.7 C Pulse Rate 85 85 89 Respiratory Rate 20 20 20 Blood Pressure 122/91 H 122/91 H 120/68 Pulse Oximetry 99 99 99 11/12/19 16:35 11/12/19 18:00 11/12/19 20:00 Temperature Pulse Rate 109 H 125 H 108 H Respiratory Rate Blood Pressure Pulse Oximetry 11/12/19 20:17 11/12/19 20:22 11/12/19 20:35 Temperature 36.1 C L Pulse Rate 107 H 104 H 110 H Respiratory Rate 18 18 18 Blood Pressure 129/85 Pulse Oximetry 97 11/12/19 21:13 11/12/19 22:00 11/12/19 23:57 Temperature 35.7 C L Pulse Rate 118 H 105 H 96 Respiratory Rate 18 Blood Pressure 128/82 Pulse Oximetry 96 11/13/19 00:00 11/13/19 02:00 11/13/19 02:22 Temperature Pulse Rate 84 90 92 Respiratory Rate 18 Blood Pressure Pulse Oximetry 11/13/19 02:28 11/13/19 03:40 11/13/19 04:00 Temperature Pulse Rate 95 83 90 Respiratory Rate 18 Blood Pressure Pulse Oximetry 11/13/19 04:42 11/13/19 06:00 11/13/19 08:00 Temperature 36.1 C L 36.1 C L Pulse Rate 89 101 H 83 Respiratory Rate 18 20 Blood Pressure 127/89 135/97 H Pulse Oximetry 96 99 11/13/19 08:17 Temperature Pulse Rate 84 Respiratory Rate Blood Pressure Pulse Oximetry Intake/Output Intake/Output: Intake & Output 11/10/19 11/11/19 11/12/19 11/13/19 23:59 23:59 23:59 23:59 Intake Total 883 339 81 Output Total 315 525 450 Balance 743 -427 -777 Meds/Results Medications: Active Medications Generic Name Dose Route Start Last Admin Trade Name Freq PRN Reason Stop Dose Admin Acetaminophen 650 mg 11/11/19 02:27 Tylenol Tablet PO Q4H PRN Mild Pain (1-3) or Fever Aspirin 325 mg 11/12/19 09:00 11/13/19 08:18 Aspirin Ec PO 325 mg DAILY MONET Administration Folic Acid 1 mg 11/12/19 09:00 11/13/19 08:17 Folic Acid PO 1 mg DAILY MONET Administration Furosemide 40 mg 11/12/19 09:00 11/13/19 08:16 Lasix Tablet PO 40 mg DAILY MONET Administration Diltiazem HCl 100 mg in 100 mls @ 10 mls/hr 11/11/19 13:25 11/13/19 03:40 Cardizem 100 Mg/D5w 100 Ml IV CONT 10 mg/hr .Q10H MONET 10 mls/hr Administration 10 MG/HR Levalbuterol HCl 1.25 mg 11/11/19 03:28 Xopenex 1.25 Mg/0.5 Ml INHALATION Q6HRT PRN shortness of breath Levalbuterol HCl 1.25 mg 11/12/19 14:00 11/13/19 08:38 Xopenex 1.25 Mg/0.5 Ml INHALATION 1.25 mg Q6HRT MONET Administration Magnesium Oxide 400 mg 11/12/19 09:00 11/13/19 08:16 Mag-Ox PO 400 mg QAM MONET Administration Metoprolol Tar
--- NOTE | 2019-11-13 10:19 | PM.PNCARD ---
Progress Note: A&P Assessment and Plan (1) Atrial fibrillation with rapid ventricular response: Code(s): I48.91 - Unspecified atrial fibrillation Status: Acute Assessment and Plan: Persistent atrial fibrillation, previously controlled with high-dose metoprolol and diltiazem, Unsure of etiology; surgery and ID do not think the he is septic or actively infected. Continue metoprolol 100 mg q.12 hours. Stop diltiazem drip. Resume Cardizem CD 240 mg daily. (med list has q 12 hours but on documents from 11/08, 11/07, 11/06 received 240 mg daily) Thought to be a poor candidate for oral anticoagulation because of falls and alcohol abuse. (2) Abnormal EKG: Code(s): R94.31 - Abnormal electrocardiogram [ECG] [EKG] Status: Acute Assessment and Plan: Patient has some new T-wave inversion anterolaterally but denies any signs or symptoms of cardiac ischemia. Due to electrolyte problems or ischemia fr RVR? Check troponin X 1 and repeat EKG in a.m. (3) Hypokalemia: Code(s): E87.6 - Hypokalemia Status: Acute Assessment and Plan: Severe hypokalemia, 2.9, getting repleted with IV potassium. Recheck lytes in a.m. (4) Hypomagnesemia: Code(s): E83.42 - Hypomagnesemia Status: Acute Assessment and Plan: Repleted. (5) Gallbladder abscess: Code(s): K81.0 - Acute cholecystitis Status: Acute Assessment and Plan: GB Drain fell out, with fluid collections by CT scan but thought not to be actively infected Being treated conservatively. Subjective Date/time seen: 11/13/19 10:19 Interval history: follow-up for: Atrial fibrillation with rapid ventricular response, abnormal EKG, hypokalemia Date of service: 11/13/2019 Subjective: Denied pain or shortness of breath. 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) ENT: Denies dysphagia, Reports hearing loss and Denies epistaxis Cardiovascular: Cardiovascular: Denies chest pain, Denies pedal edema, Denies leg edema, Denies lightheadedness, Denies palpitations and Denies dyspnea Respiratory: Respiratory: Denies chest congestion and Denies dyspnea Gastrointestinal: Gastrointestinal: Denies abdominal pain, Denies dysphagia and Denies diarrhea Genitourinary: Genitourinary: Denies dysuria Musculoskeletal: Musculoskeletal: Denies back pain and Denies arthralgias Integumentary/Breasts: Skin/Breast: Denies rash Neurologic: Reports frequent falls and Reports weakness Psychiatric: Psychiatric: Denies anxiety and Reports confusion Endocrine: Endocrine: Denies palpitations Hematologic/Lymphatic: Hematologic/Lymphatic: Denies easy bruising Allergic/Immunologic: Allergic/Immunologic: Denies throat swelling Exam Narrative: Exam Narrative: Elderly male in bed pulling on pfeiffer. No distress or complaints of discomfort Const: General: comfortable and no acute distress HENMT: General nose exam: no epistaxis Mouth: Yes moist mucous membranes Eyes: Conjunctivae: conjunctivae normal Sclera: sclerae normal Pupils: Equal, round and reactive pupils present Neck: Neck: supple and no JVD Resp: Effort & Inspection: normal respiratory effort and able to speak in complete sentences Auscultation: rales ( few rales noted in the right lower lobe) Cardio: Jugular venous distension: no JVD Rate: regular rate Rhythm: abnormal rhythm irregularly irregular Peripheral pulses: Peripheral pulses 2+ throughout GI: Inspection: non-distended Auscultation: abnormal bowel sounds ( decreased bowel sounds) Other: Urinary Catheter: Urinary Catheter: patent and draining and urine clear Skin: General skin exam: no rashes or lesions noted Neuro:
--- NOTE | 2019-11-13 14:22 | PCSTNOTE ---
Patient declined tx this date; he is tired from all other therapies; was evaluated yesterday. Left note for weekend ST to see him first thing.
--- NOTE | 2019-11-13 15:13 | WPDINFPN2 ---
Progress Note: A&P Assessment and Plan (1) Intra-abdominal abscess: Code(s): K65.1 - Peritoneal abscess Status: Acute Assessment and Plan: Recent intra-abdominal abscess, normal exam and WBC remains normal. Current fluid collections may be aseptic REC No further antibiotics for now. Ok discharge, sign off Subjective Date/time seen: 11/13/19 15:13 Interval history: no abd pain anorexia n/v Exam Narrative: Exam Narrative: Aebrile Const: General: no acute distress GI: Inspection: non-distended GI Palp: Yes Soft to palpation, No Tenderness to palpation present (GI) and No Guarding due to palpation present (GI) Percussion: Yes normal to percussion Other: no mass Objective Data Vital Signs Vital Signs: Vital Signs - 24 hr 11/12/19 15:21 11/12/19 15:27 11/12/19 16:00 Temperature 36.9 C 36.9 C 36.7 C Pulse Rate 85 85 89 Respiratory Rate 20 20 20 Blood Pressure 122/91 H 122/91 H 120/68 Pulse Oximetry 99 99 99 11/12/19 16:35 11/12/19 18:00 11/12/19 20:00 Temperature Pulse Rate 109 H 125 H 108 H Respiratory Rate Blood Pressure Pulse Oximetry 11/12/19 20:17 11/12/19 20:22 11/12/19 20:35 Temperature 36.1 C L Pulse Rate 107 H 104 H 110 H Respiratory Rate 18 18 18 Blood Pressure 129/85 Pulse Oximetry 97 11/12/19 21:13 11/12/19 22:00 11/12/19 23:57 Temperature 35.7 C L Pulse Rate 118 H 105 H 96 Respiratory Rate 18 Blood Pressure 128/82 Pulse Oximetry 96 11/13/19 00:00 11/13/19 02:00 11/13/19 02:22 Temperature Pulse Rate 84 90 92 Respiratory Rate 18 Blood Pressure Pulse Oximetry 11/13/19 02:28 11/13/19 03:40 11/13/19 04:00 Temperature Pulse Rate 95 83 90 Respiratory Rate 18 Blood Pressure Pulse Oximetry 11/13/19 04:42 11/13/19 06:00 11/13/19 08:00 Temperature 36.1 C L 36.1 C L Pulse Rate 89 101 H 83 Respiratory Rate 18 20 Blood Pressure 127/89 135/97 H Pulse Oximetry 96 99 11/13/19 08:17 11/13/19 08:38 11/13/19 08:48 Temperature Pulse Rate 84 92 91 Respiratory Rate 18 18 Blood Pressure Pulse Oximetry 11/13/19 10:00 11/13/19 12:00 11/13/19 13:48 Temperature 36.6 C Pulse Rate 85 93 98 Respiratory Rate 22 H 18 Blood Pressure 127/83 Pulse Oximetry 100 11/13/19 13:58 11/13/19 14:00 Temperature Pulse Rate 95 97 Respiratory Rate 18 Blood Pressure Pulse Oximetry Intake/Output Intake/Output: Intake & Output 11/10/19 11/11/19 11/12/19 11/13/19 23:59 23:59 23:59 23:59 Intake Total 883 339 81 Output Total 596 520 450 Balance 638 -367 -306 Meds/Results Medications: Active Medications Generic Name Dose Route Start Last Admin Trade Name Freq PRN Reason Stop Dose Admin Acetaminophen 650 mg 11/11/19 02:27 Tylenol Tablet PO Q4H PRN Mild Pain (1-3) or Fever Aspirin 325 mg 11/12/19 09:00 11/13/19 08:18 Aspirin Ec PO 325 mg DAILY MONET Administration Diltiazem HCl 240 mg 11/13/19 12:00 11/13/19 11:55 Cardizem Cd PO 240 mg QAM MONET Administration Folic Acid 1 mg 11/12/19 09:00 11/13/19 08:17 Folic Acid PO 1 mg DAILY MONET Administration Furosemide 40 mg 11/12/19 09:00 11/13/19 08:16 Lasix Tablet PO 40 mg DAILY MONET Administration Levalbuterol HCl 1.25 mg 11/11/19 03:28 Xopenex 1.25 Mg/0.5 Ml INHALATION Q6HRT PRN shortness of breath Levalbuterol HCl 1.25 mg 11/12/19 14:00 11/13/19 13:48 Xopenex 1.25 Mg/0.5 Ml INHALATION 1.25 mg Q6HRT MONET Administration Magnesium Oxide 400 mg 11/12/19 09:00 11/13/19 08:16 Mag-Ox PO 400 mg QAM MONET Administration Metoprolol Tartrate 100 mg 11/12/19 11:00 11/13/19 08:17 Lopressor PO 100 mg Q12HR MONET Administration Multivitamins Therapeutic 1 tablet 11/12/19 09:00 11/13/19 08:16 Multivitamins Therapeutic(*Bkc PO 1 tablet DAILY MONET Administration Pantoprazole Sodium 40 mg 11/12/19 09:00 11/13/19 08:17
--- NOTE | 2019-11-13 16:40 | PM.IMPN ---
Progress Note: A&P Assessment and Plan (1) Atrial fibrillation with rapid ventricular response: Code(s): I48.91 - Unspecified atrial fibrillation Status: Acute Assessment and Plan: Admit to IMU, telemetry, Trend troponin. Continue Cardizem IV for rate control. TSH w/ reflex T4. Check magnesium. Cardiology consult in am. 11/13/19 16:40 patient is 69-year-old male with history of abdominal wall abscess and patient was recently treated with drain and IV antibiotics imipenem patient had a respiratory failure and was intubated patient was recently discharged [facility] with drain, the drain fell off and patient was sent to emergency department for further evaluation, does have history of atrial fibrillation upon arrival he was in RVR and patient was started on diltiazem drip and the rate is trending down, patient was seen by cardiology recommended the patient is not candidate for anticoagulation with history of alcoholic and several fall, today patient was seen by laundry aide and added metoprolol and rate improve will stop drip and start patient on diltiazem PO, patient was seen by Dr. jett does not recommend starting any antibiotic, patient, is seen by surgery team to further evaluate if patient needs drain, patient is clinically stable will continue to monitor and have a PT OT evaluate the patient, a patient remains clinically stable will do the discharge planning possibly tomorrow (2) Hypokalemia: Code(s): E87.6 - Hypokalemia Status: Acute Assessment and Plan: Potassium was replaced in ER. Check BMP in am. (3) CHF (congestive heart failure): Qualifiers: Heart failure chronicity: unspecified Heart failure type: unspecified Qualified Code(s): I50.9 - Heart failure, unspecified Code(s): I50.9 - Heart failure, unspecified Status: Acute Assessment and Plan: Lasix IV daily. (4) Abdominal abscess: Status: Acute Assessment and Plan: Continue IV antibiotics. Infectious disease consult in am. General surgery has been consulted by ER provider. (5) Chronic alcohol use: Code(s): Z72.89 - Other problems related to lifestyle Status: Chronic Assessment and Plan: Thiamine IV daily. Monitor for any signs or symptoms of withdrawal. (6) COPD (chronic obstructive pulmonary disease): Qualifiers: COPD type: unspecified COPD Qualified Code(s): J44.9 - Chronic obstructive pulmonary disease, unspecified Code(s): J44.9 - Chronic obstructive pulmonary disease, unspecified Status: Chronic Assessment and Plan: PRN bronchodilators. (7) Essential hypertension: Code(s): I10 - Essential (primary) hypertension Status: Chronic Assessment and Plan: Monitor blood pressure. Resume beta edmund in am. (8) GERD (gastroesophageal reflux disease): Qualifiers: Esophagitis presence: esophagitis presence not specified Qualified Code(s): K21.9 - Gastro-esophageal reflux disease without esophagitis Code(s): K21.9 - Gastro-esophageal reflux disease without esophagitis Status: Chronic Assessment and Plan: PPI therapy Subjective Date/time seen: 11/13/19 16:40 patient is 69-year-old male with history of abdominal wall abscess and patient was recently treated with drain and IV antibiotics imipenem patient had a respiratory failure and was intubated patient was recently discharged [facility] with drain, the drain fell off and patient was sent to emergency department for further evaluation, does have history of atrial fibrillation upon arrival he was in RVR and patient was started on diltiazem drip and the rate is trending down, patient was seen by cardiology recommended the patient is not candidate for anticoagulation with history of alcoholic and several fall, today patient was seen by laundry aide and added metoprolol and rate improve will stop drip and start patient on diltiazem PO, pa
[2019-11-13] MEDS: POTASSIUM CHLORIDE 20 MEQ TABLET 40 MEQ PO (16:56)
[2019-11-14] VITALS (15 sets, daily range): BP systolic 109–124; BP diastolic 72–92; PULSE 78–106; RESP 18–20; TEMP 36.1–36.9; O2SAT 91–100
[2019-11-14 04:28] LABS: Basophils Percent Auto 0.4 % (0.2-1.2); Eosinophils Absolute Auto 0.1 K/mm3 (0-0.3); Eosinophils Percent Auto 1.4 % (0-4.4); Hematocrit 32.6 % (42.0-52.0); Hemoglobin 10.5 g/dL (14.0-18.0); Immature Granulocyte Absolute 0.05 K/mm3 (0.00-0.031); Immature Granulocyte Percent A 0.6 % (0-0.5); Lymphocytes Absolute Auto 1.51 K/mm3 (0.9-3.2); Lymphocytes Percent Auto 18.2 % (18.3-44.2); Mean Corpuscular HGB Conc 32.2 g/dl (32-36); Mean Corpuscular Hemoglobin 31.6 pg (26-34); Mean Corpuscular Volume 98.2 fl (80-100); Mean Platelet Volume 10.3 fl (7.4-10.4); Monocytes Absolute Auto 0.6 K/mm3 (0.1-0.6); Monocytes Percent Auto 7.2 % (2.6-8.5); Neutrophils Percent Auto 72.2 % (45.5-73.1); Platelet Count Result 200 k/mm3 (150-375); Red Blood Count 3.32 M/mm3 (4.6-6.20); Red Cell Distribution Width 17.7 % (11.5-14.5); White Blood Count 8.3 K/mm3 (4.5-10.0)
[2019-11-14 04:44] LABS: Alanine Aminotransferase 13 U/L (4-50); Albumin Level 2.7 g/dL (3.5-5.1); Alkaline Phosphatase 93 U/L (38-126); Anion Gap 4 mmol/L (8-16); Aspartate Amino Transferase 17 U/L (17-59); Bilirubin,Total 0.6 mg/dL (0.2-1.3); Blood Urea Nitrogen 16 mg/dL (9-20); Calcium 8.4 mg/dL (8.4-10.2); Carbon Dioxide 26 mmol/L (22-30); Chloride 107 mmol/L (98-107); Estimated CRCL calculation 107 ml/min; Estimated Glomerular Filt Rate > 60; Glucose 94 mg/dL (75-110); Magnesium 2.2 mg/dL (1.6-2.3); Potassium 3.9 mmol/L (3.4-5.0); Sodium 137 mmol/L (137-145)
[2019-11-14] MEDS: CHOLECALCIFEROL 1,000 UNIT TABLET 5000 UNITS PO (08:21)
[2019-11-14] MEDS: ASPIRIN 325 MG ENTERIC TABLET PO (08:21)
[2019-11-14] MEDS: POTASSIUM CHLORIDE 10 MEQ TABLET.ER 40 MEQ PO (08:21)
[2019-11-14] MEDS: METOPROLOL TARTRATE 50 MG TAB 100 MG PO ×2 (08:22→21:59)
[2019-11-14] MEDS: THIAMINE HCL 100 MG TABLET PO (08:22)
[2019-11-14] MEDS: MAGNESIUM OXIDE 400 MG TABLET PO (08:22)
[2019-11-14] MEDS: FUROSEMIDE 40 MG TABLET PO (08:22)
[2019-11-14] MEDS: TIMOLOL MALEATE 0.5% OP SOLN 5 ML BOTTLE 1 DROP EACH EYE ×2 (08:23→22:00)
[2019-11-14] MEDS: QUEtiapine FUMARATE 12.5 MG TABLET PO ×2 (08:23→21:59)
[2019-11-14] MEDS: PANTOPRAZOLE 40 MG TABLET PO (08:23)
[2019-11-14] MEDS: FOLIC ACID 1 MG TABLET PO (08:23)
[2019-11-14] MEDS: polyethylene glycoL 3350 17 GM POWD.PACK PO (08:23)
[2019-11-14] MEDS: MULTIVITAMINS THERAPEUTIC TAB (*BKC) 1 TABLET PO (08:23)
--- NOTE | 2019-11-14 11:16 | PM.PNCARD ---
Progress Note: A&P Assessment and Plan (1) Atrial fibrillation with rapid ventricular response: Code(s): I48.91 - Unspecified atrial fibrillation Status: Acute Assessment and Plan: Persistent atrial fibrillation, Rapid ventricular rate on admission, previously controlled with high-dose metoprolol and diltiazem, Unsure of etiology of recent decompensation; surgery and ID do not think the he is septic or actively infected. Continue metoprolol 100 mg q.12 hours. Resumed Cardizem CD 240 mg daily. Heart rate is reasonably controlled. Thought to be a poor candidate for oral anticoagulation because of falls and alcohol abuse. Back to halfway soon? (2) Abnormal EKG: Code(s): R94.31 - Abnormal electrocardiogram [ECG] [EKG] Status: Acute Assessment and Plan: Patient had new T-wave inversion anterolaterally on admissionbut denies any signs or symptoms of cardiac ischemia. Due to electrolyte problems or ischemia fr RVR? Troponin was negative and repeat EKG showed improvement of T-wave inversion with improved heart rate. (3) Hypokalemia: Code(s): E87.6 - Hypokalemia Status: Acute Assessment and Plan: Severe hypokalemia, 2.9 on admission, repleted. Home med list shows that he should be already taking 40 mEq of potassium daily. (4) Hypomagnesemia: Code(s): E83.42 - Hypomagnesemia Status: Acute Assessment and Plan: Repleted , now on Mag-Ox also. (5) Gallbladder abscess: Code(s): K81.0 - Acute cholecystitis Status: Acute Assessment and Plan: GB Drain fell out, with fluid collections by CT scan but thought not to be actively infected Being treated conservatively. Subjective Date/time seen: 11/14/19 11:16 Interval history: Follow-up for: Atrial fibrillation with rapid ventricular response, abnormal EKG, hypokalemia Visit: 11/13/2019 Subjective: Denied pain or shortness of breath. Diltiazem was changed from IV to p.o., metoprolol continued, heart rate controlled. Date of service 11/14/2019: Patient denies any problems with shortness of breath, chest pain , abdominal pain etc.. Participated with physical therapy. Telemetry shows heart rate running 80-100 ppm Review of Systems Constitutional: Constitutional: Reports no additional constitutional complaints Eyes: Eyes: Reports no additional eye complaints ENT: Denies epistaxis Cardiovascular: Cardiovascular: Denies chest pain, Denies leg edema, Denies lightheadedness and Denies palpitations Respiratory: Respiratory: Denies chest congestion, Denies cough and Denies dyspnea Gastrointestinal: Gastrointestinal: Denies abdominal pain Genitourinary: Genitourinary: Denies dysuria Musculoskeletal: Musculoskeletal: Denies back pain Integumentary/Breasts: Skin/Breast: Denies rash Neurologic: Denies headache(s) Psychiatric: Psychiatric: Reports confusion Exam Const: General: comfortable and no acute distress Other: napping on arrival, usually awake and HENMT: General nose exam: no epistaxis Eyes: EOM: EOMs intact bilaterally Neck: Neck: supple Resp: Effort & Inspection: normal respiratory effort Auscultation: clear to auscultation bilaterally Cardio: Rhythm: abnormal rhythm irregularly irregular GI: Inspection: non-distended Other: soft and nontender Skin: General skin exam: no rashes or lesions noted Neuro: Cognition (Neuro): abnormal cognition ( confused and disoriented) Speech: normal speech Extrem: General: no edema and no pedal edema Psych: Affect: No normal affect Other: pleasant and cooperative but confused Objective Data Vital Signs Vital Signs: Vital Signs - 24 hr 11/13/19 12:00 11/13/19 13:48 11/13/19 13:58 Temperature 97.8 F Pulse Rate 93 98 95 Respiratory Rate
--- NOTE | 2019-11-14 11:45 | PC.NURSE ---
This patient, Lloyd Redman, was transferred to [facility] on 11/14/19 at 1145. Personal belongings sent with patient. Belongings list checked and signed with receiving RN. Report given to GAURAV Betts. Appropriate documentation sent with patient.
--- NOTE | 2019-11-14 11:56 | PC.NURSE ---
Received patient from IMU via bed with IMU staff. Patient settled in room. No distress noted. No c/o pain. Patient placed on manager art. Noted Afib with rate stable in the 80s. Patient oriented to unit and room.
--- NOTE | 2019-11-14 12:22 | PM.IMPN ---
Progress Note: A&P Assessment and Plan (1) Atrial fibrillation with rapid ventricular response: Code(s): I48.91 - Unspecified atrial fibrillation Status: Acute Assessment and Plan: Admit to IMU, telemetry, Trend troponin. Continue Cardizem IV for rate control. TSH w/ reflex T4. Check magnesium. Cardiology consult in am. 11/14/19 12:22 patient is 69-year-old male with history of abdominal wall abscess and patient was recently treated with drain and IV antibiotics imipenem patient had a respiratory failure and was intubated patient was recently discharged assisted with drain, the drain fell off and patient was sent to emergency department for further evaluation, does have history of atrial fibrillation upon arrival he was in RVR and patient was started on diltiazem drip and the rate is trending down, patient was seen by cardiology recommended the patient is not candidate for anticoagulation with history of alcoholic and several fall, today patient was seen by superintendent meters and added metoprolol and rate improve will stop drip and start patient on diltiazem PO, patient was seen by Dr. jett does not recommend starting any antibiotic, patient is seen by surgery team to further evaluate if patient needs drain, patient is clinically stable will continue to monitor and have a PT OT evaluate the patient, a patient remains clinically stable will do the discharge planning possibly on Saturday. (2) Hypokalemia: Code(s): E87.6 - Hypokalemia Status: Acute Assessment and Plan: Potassium was replaced in ER. Check BMP in am. (3) CHF (congestive heart failure): Qualifiers: Heart failure chronicity: unspecified Heart failure type: unspecified Qualified Code(s): I50.9 - Heart failure, unspecified Code(s): I50.9 - Heart failure, unspecified Status: Acute Assessment and Plan: Lasix IV daily. (4) Abdominal abscess: Status: Acute Assessment and Plan: Continue IV antibiotics. Infectious disease consult in am. General surgery has been consulted by ER provider. (5) Chronic alcohol use: Code(s): Z72.89 - Other problems related to lifestyle Status: Chronic Assessment and Plan: Thiamine IV daily. Monitor for any signs or symptoms of withdrawal. (6) COPD (chronic obstructive pulmonary disease): Qualifiers: COPD type: unspecified COPD Qualified Code(s): J44.9 - Chronic obstructive pulmonary disease, unspecified Code(s): J44.9 - Chronic obstructive pulmonary disease, unspecified Status: Chronic Assessment and Plan: PRN bronchodilators. (7) Essential hypertension: Code(s): I10 - Essential (primary) hypertension Status: Chronic Assessment and Plan: Monitor blood pressure. Resume beta edmund in am. (8) GERD (gastroesophageal reflux disease): Qualifiers: Esophagitis presence: esophagitis presence not specified Qualified Code(s): K21.9 - Gastro-esophageal reflux disease without esophagitis Code(s): K21.9 - Gastro-esophageal reflux disease without esophagitis Status: Chronic Assessment and Plan: PPI therapy Subjective Date/time seen: 11/14/19 12:22 patient is 69-year-old male with history of abdominal wall abscess and patient was recently treated with drain and IV antibiotics imipenem patient had a respiratory failure and was intubated patient was recently discharged assisted with drain, the drain fell off and patient was sent to emergency department for further evaluation, does have history of atrial fibrillation upon arrival he was in RVR and patient was started on diltiazem drip and the rate is trending down, patient was seen by cardiology recommended the patient is not candidate for anticoagulation with history of alcoholic and several fall, today patient was seen by superintendent meters and added metoprolol and rate improve will stop drip and start patient on diltiazem PO,
[2019-11-15] VITALS (20 sets, daily range): BP systolic 111–132; BP diastolic 74–85; PULSE 81–114; RESP 18–20; TEMP 36–36.6; O2SAT 97–98
[2019-11-15 05:38] LABS: Basophils Percent Auto 0.5 % (0.2-1.2); Eosinophils Absolute Auto 0.1 K/mm3 (0-0.3); Eosinophils Percent Auto 1.2 % (0-4.4); Hematocrit 35.5 % (42.0-52.0); Hemoglobin 11.1 g/dL (14.0-18.0); Immature Granulocyte Absolute 0.04 K/mm3 (0.00-0.031); Immature Granulocyte Percent A 0.5 % (0-0.5); Lymphocytes Absolute Auto 1.49 K/mm3 (0.9-3.2); Lymphocytes Percent Auto 17.7 % (18.3-44.2); Mean Corpuscular HGB Conc 31.3 g/dl (32-36); Mean Corpuscular Hemoglobin 31.4 pg (26-34); Mean Corpuscular Volume 100.6 fl (80-100); Mean Platelet Volume 10.5 fl (7.4-10.4); Monocytes Absolute Auto 0.7 K/mm3 (0.1-0.6); Monocytes Percent Auto 8.3 % (2.6-8.5); Neutrophils Absolute Auto 6.1 K/mm3 (1.3-6.7); Neutrophils Percent Auto 71.8 % (45.5-73.1); Platelet Count Result 211 k/mm3 (150-375); Red Blood Count 3.53 M/mm3 (4.6-6.20); White Blood Count 8.4 K/mm3 (4.5-10.0)
[2019-11-15 05:58] LABS: Alanine Aminotransferase 13 U/L (4-50); Albumin Level 2.8 g/dL (3.5-5.1); Alkaline Phosphatase 99 U/L (38-126); Anion Gap 4 mmol/L (8-16); Aspartate Amino Transferase 18 U/L (17-59); Bilirubin,Total 0.5 mg/dL (0.2-1.3); Blood Urea Nitrogen 17 mg/dL (9-20); Calcium 8.3 mg/dL (8.4-10.2); Carbon Dioxide 29 mmol/L (22-30); Chloride 105 mmol/L (98-107); Estimated CRCL calculation 93 ml/min; Estimated Glomerular Filt Rate > 60; Glucose 97 mg/dL (75-110); Magnesium 2.1 mg/dL (1.6-2.3); Potassium 3.7 mmol/L (3.4-5.0); Sodium 138 mmol/L (137-145)
[2019-11-15] MEDS: CHOLECALCIFEROL 1,000 UNIT TABLET 5000 UNITS PO (09:24)
[2019-11-15] MEDS: ASPIRIN 325 MG ENTERIC TABLET PO (09:26)
[2019-11-15] MEDS: POTASSIUM CHLORIDE 10 MEQ TABLET.ER 40 MEQ PO (09:27)
[2019-11-15] MEDS: FUROSEMIDE 40 MG TABLET PO (09:28)
[2019-11-15] MEDS: FOLIC ACID 1 MG TABLET PO (09:28)
[2019-11-15] MEDS: MAGNESIUM OXIDE 400 MG TABLET PO (09:29)
[2019-11-15] MEDS: METOPROLOL TARTRATE 50 MG TAB 100 MG PO ×2 (09:29→20:35)
[2019-11-15] MEDS: MULTIVITAMINS THERAPEUTIC TAB (*BKC) 1 TABLET PO (09:31)
[2019-11-15] MEDS: PANTOPRAZOLE 40 MG TABLET PO (09:31)
[2019-11-15] MEDS: polyethylene glycoL 3350 17 GM POWD.PACK PO (09:32)
[2019-11-15] MEDS: TIMOLOL MALEATE 0.5% OP SOLN 5 ML BOTTLE 1 DROP EACH EYE ×2 (09:32→20:36)
[2019-11-15] MEDS: QUEtiapine FUMARATE 12.5 MG TABLET PO ×2 (09:32→20:35)
[2019-11-15] MEDS: THIAMINE HCL 100 MG TABLET PO (09:32)
--- NOTE | 2019-11-15 11:53 | PM.IMPN ---
Progress Note: A&P Assessment and Plan (1) Atrial fibrillation with rapid ventricular response: Code(s): I48.91 - Unspecified atrial fibrillation Status: Acute Assessment and Plan: Admit to IMU, telemetry, Trend troponin. Continue Cardizem IV for rate control. TSH w/ reflex T4. Check magnesium. Cardiology consult in am. 11/15/19 11:53 patient is 69-year-old male with history of abdominal wall abscess and patient was recently treated with drain and IV antibiotics imipenem patient had a respiratory failure and was intubated patient was recently discharged senior care with drain, the drain fell off and patient was sent to emergency department for further evaluation, does have history of atrial fibrillation upon arrival he was in RVR and patient was started on diltiazem drip and the rate is trending down, patient was seen by cardiology recommended the patient is not candidate for anticoagulation with history of alcoholic and several fall, today patient was seen by tub chucker and added metoprolol and rate improve will stop drip and start patient on diltiazem PO, patient was seen by Dr. jett does not recommend starting any antibiotic, patient is seen by surgery team to further evaluate if patient needs drain and patient is not requiring any surgical intervention, patient is clinically stable will continue to monitor and have a PT OT evaluate the patient, a patient remains clinically stable will do the discharge planning possibly tommorow. (2) Hypokalemia: Code(s): E87.6 - Hypokalemia Status: Acute Assessment and Plan: Potassium was replaced in ER. Check BMP in am. (3) CHF (congestive heart failure): Qualifiers: Heart failure chronicity: unspecified Heart failure type: unspecified Qualified Code(s): I50.9 - Heart failure, unspecified Code(s): I50.9 - Heart failure, unspecified Status: Acute Assessment and Plan: Lasix IV daily. (4) Abdominal abscess: Status: Acute Assessment and Plan: Continue IV antibiotics. Infectious disease consult in am. General surgery has been consulted by ER provider. (5) Chronic alcohol use: Code(s): Z72.89 - Other problems related to lifestyle Status: Chronic Assessment and Plan: Thiamine IV daily. Monitor for any signs or symptoms of withdrawal. (6) COPD (chronic obstructive pulmonary disease): Qualifiers: COPD type: unspecified COPD Qualified Code(s): J44.9 - Chronic obstructive pulmonary disease, unspecified Code(s): J44.9 - Chronic obstructive pulmonary disease, unspecified Status: Chronic Assessment and Plan: PRN bronchodilators. (7) Essential hypertension: Code(s): I10 - Essential (primary) hypertension Status: Chronic Assessment and Plan: Monitor blood pressure. Resume beta edmund in am. (8) GERD (gastroesophageal reflux disease): Qualifiers: Esophagitis presence: esophagitis presence not specified Qualified Code(s): K21.9 - Gastro-esophageal reflux disease without esophagitis Code(s): K21.9 - Gastro-esophageal reflux disease without esophagitis Status: Chronic Assessment and Plan: PPI therapy Subjective Date/time seen: 11/15/19 11:53 patient is 69-year-old male with history of abdominal wall abscess and patient was recently treated with drain and IV antibiotics imipenem patient had a respiratory failure and was intubated patient was recently discharged senior care with drain, the drain fell off and patient was sent to emergency department for further evaluation, does have history of atrial fibrillation upon arrival he was in RVR and patient was started on diltiazem drip and the rate is trending down, patient was seen by cardiology recommended the patient is not candidate for anticoagulation with history of alcoholic and several fall, today patient was seen by tub chucker and added metoprolol and rate improv
--- NOTE | 2019-11-15 14:01 | PM.PNCARD ---
Progress Note: A&P Assessment and Plan (1) Atrial fibrillation with rapid ventricular response: Code(s): I48.91 - Unspecified atrial fibrillation Status: Acute Assessment and Plan: Persistent atrial fibrillation, Rapid ventricular rate on admission, previously controlled with high-dose metoprolol and diltiazem, Unsure of etiology of recent decompensation; surgery and ID do not think the he is septic or actively infected. Currently taking metoprolol 100 mg q.12 hours and Cardizem CD 240 mg daily. Heart rate control not great. Was DC'd on dilt 240 mg once daily (not BID) but will add an evening dose of 180 mg po q pm. Watch BP. Thought to be a poor candidate for oral anticoagulation because of falls and alcohol abuse. Back to [facility] soon? (2) Abnormal EKG: Code(s): R94.31 - Abnormal electrocardiogram [ECG] [EKG] Status: Acute Assessment and Plan: Patient had new T-wave inversion anterolaterally on admissionbut denies any signs or symptoms of cardiac ischemia. Due to electrolyte problems or ischemia fr RVR? Troponin was negative and repeat EKG showed improvement of T-wave inversion with improved heart rate. (3) Hypokalemia: Code(s): E87.6 - Hypokalemia Status: Acute Assessment and Plan: Severe hypokalemia, 2.9 on admission, repleted. Home med list shows that he should be already taking 40 mEq of potassium daily. (4) Hypomagnesemia: Code(s): E83.42 - Hypomagnesemia Status: Acute Assessment and Plan: Repleted , now on Mag-Ox also. (5) Gallbladder abscess: Code(s): K81.0 - Acute cholecystitis Status: Acute Assessment and Plan: GB Drain fell out, with fluid collections by CT scan but thought not to be actively infected Being treated conservatively. Subjective Date/time seen: 11/15/19 14:01 Interval history: Follow-up for: Atrial fibrillation with rapid ventricular response, abnormal EKG, hypokalemia Visit: 11/13/2019 Subjective: Denied pain or shortness of breath. Diltiazem was changed from IV to p.o., metoprolol continued, heart rate controlled. Visit 11/14/2019: Patient denies any problems with shortness of breath, chest pain , abdominal pain etc.. Participated with physical therapy. Telemetry shows heart rate running 80-100 ppm Date of service: 11/15/2019 Pt w/o any complaints, no SOB, CP, etc. Heart rate remains a bit high, generally 90-120's beat per minute. Probably discharge to SNF/Rehab tmr. Review of Systems Constitutional: Constitutional: Denies weakness Cardiovascular: Cardiovascular: Denies chest pain and Denies lightheadedness Respiratory: Respiratory: Denies cough and Denies dyspnea Gastrointestinal: Gastrointestinal: Denies abdominal pain Neurologic: Reports confusion Psychiatric: Psychiatric: Reports no additional psychiatric complaints Exam Narrative: Exam Narrative: older male, pleasant, no distress Const: General: comfortable, no acute distress and confusion Orientation/consciousness: confusion Other: HENMT: General nose exam: no epistaxis Mouth: Yes moist mucous membranes Eyes: EOM: EOMs intact bilaterally Neck: Neck: supple Resp: Effort & Inspection: normal respiratory effort Auscultation: clear to auscultation bilaterally and rales ( few rales noted in the right lower lobe) Cardio: Rate: tachycardic Rhythm: abnormal rhythm irregularly irregular Other: GI: Inspection: non-distended Auscultation: abnormal bowel sounds ( decreased bowel sounds) Other: soft and nontender Skin: General skin exam: no rashes or lesions noted Neuro: General: confusion Cognition (Neuro): abnormal cognition ( confused and disorient
[2019-11-15] MEDS: dilTIAZem HCL CD 180 MG CAP.ER.24H PO (17:33)
[2019-11-16] VITALS (16 sets, daily range): BP systolic 107–135; BP diastolic 63–89; PULSE 55–114; RESP 18–22; TEMP 36–36.5; O2SAT 93–100
[2019-11-16 05:37] LABS: Basophils Percent Auto 0.3 % (0.2-1.2); Eosinophils Absolute Auto 0.1 K/mm3 (0-0.3); Eosinophils Percent Auto 0.5 % (0-4.4); Hematocrit 33.8 % (42.0-52.0); Hemoglobin 10.7 g/dL (14.0-18.0); Immature Granulocyte Absolute 0.04 K/mm3 (0.00-0.031); Immature Granulocyte Percent A 0.4 % (0-0.5); Lymphocytes Absolute Auto 1.45 K/mm3 (0.9-3.2); Lymphocytes Percent Auto 13.4 % (18.3-44.2); Mean Corpuscular HGB Conc 31.7 g/dl (32-36); Mean Corpuscular Hemoglobin 31.4 pg (26-34); Mean Corpuscular Volume 99.1 fl (80-100); Mean Platelet Volume 10.6 fl (7.4-10.4); Monocytes Percent Auto 9.1 % (2.6-8.5); Neutrophils Absolute Auto 8.3 K/mm3 (1.3-6.7); Neutrophils Percent Auto 76.3 % (45.5-73.1); Platelet Count Result 201 k/mm3 (150-375); Red Blood Count 3.41 M/mm3 (4.6-6.20); Red Cell Distribution Width 17.7 % (11.5-14.5); White Blood Count 10.8 K/mm3 (4.5-10.0)
[2019-11-16 05:54] LABS: Alanine Aminotransferase 13 U/L (4-50); Albumin Level 2.8 g/dL (3.5-5.1); Alkaline Phosphatase 105 U/L (38-126); Anion Gap 7 mmol/L (8-16); Aspartate Amino Transferase 16 U/L (17-59); Bilirubin,Total 0.6 mg/dL (0.2-1.3); Blood Urea Nitrogen 16 mg/dL (9-20); Calcium 8.4 mg/dL (8.4-10.2); Carbon Dioxide 27 mmol/L (22-30); Chloride 105 mmol/L (98-107); Estimated CRCL calculation 107 ml/min; Estimated Glomerular Filt Rate > 60; Glucose 122 mg/dL (75-110); Potassium 3.9 mmol/L (3.4-5.0); Sodium 139 mmol/L (137-145)
[2019-11-16] MEDS: CHOLECALCIFEROL 1,000 UNIT TABLET 5000 UNITS PO (08:26)
[2019-11-16] MEDS: ASPIRIN 325 MG ENTERIC TABLET PO (08:26)
[2019-11-16] MEDS: POTASSIUM CHLORIDE 10 MEQ TABLET.ER 40 MEQ PO (08:32)
[2019-11-16] MEDS: polyethylene glycoL 3350 17 GM POWD.PACK PO (08:32)
[2019-11-16] MEDS: QUEtiapine FUMARATE 12.5 MG TABLET PO ×2 (08:32→19:54)
[2019-11-16] MEDS: THIAMINE HCL 100 MG TABLET PO (08:33)
[2019-11-16] MEDS: FOLIC ACID 1 MG TABLET PO (08:33)
[2019-11-16] MEDS: FUROSEMIDE 40 MG TABLET PO (08:33)
[2019-11-16] MEDS: PANTOPRAZOLE 40 MG TABLET PO (08:33)
[2019-11-16] MEDS: MULTIVITAMINS THERAPEUTIC TAB (*BKC) 1 TABLET PO (08:33)
[2019-11-16] MEDS: MAGNESIUM OXIDE 400 MG TABLET PO (08:33)
[2019-11-16] MEDS: METOPROLOL TARTRATE 50 MG TAB 100 MG PO ×2 (08:33→19:55)
[2019-11-16] MEDS: TIMOLOL MALEATE 0.5% OP SOLN 5 ML BOTTLE 1 DROP EACH EYE ×2 (08:35→19:54)
--- NOTE | 2019-11-16 10:09 | PM.PNCARD ---
Progress Note: A&P Assessment and Plan (1) Atrial fibrillation with rapid ventricular response: Code(s): I48.91 - Unspecified atrial fibrillation Status: Acute Assessment and Plan: Persistent atrial fibrillation, Rapid ventricular rate on admission, previously controlled with high-dose metoprolol and diltiazem, Unsure of etiology of recent decompensation; surgery and ID do not think the he is septic or actively infected. Currently taking metoprolol 100 mg q.12 hours and Cardizem CD 240 mg daily. Heart rate control not great. Was DC'd on dilt 240 mg once daily (not BID) but will add an evening dose of 180 mg po q pm. Watch BP. Thought to be a poor candidate for oral anticoagulation because of falls and alcohol abuse. DC today. (2) Abnormal EKG: Code(s): R94.31 - Abnormal electrocardiogram [ECG] [EKG] Status: Acute Assessment and Plan: Patient had new T-wave inversion anterolaterally on admissionbut denies any signs or symptoms of cardiac ischemia. Due to electrolyte problems or ischemia fr RVR? Troponin was negative and repeat EKG showed improvement of T-wave inversion with improved heart rate. (3) Hypokalemia: Code(s): E87.6 - Hypokalemia Status: Acute Assessment and Plan: Severe hypokalemia, 2.9 on admission, repleted. Home med list shows that he should be already taking 40 mEq of potassium daily. (4) Hypomagnesemia: Code(s): E83.42 - Hypomagnesemia Status: Acute Assessment and Plan: Repleted , now on Mag-Ox also. (5) Gallbladder abscess: Code(s): K81.0 - Acute cholecystitis Status: Acute Assessment and Plan: GB Drain fell out, with fluid collections by CT scan but thought not to be actively infected Being treated conservatively. Subjective Date/time seen: 11/16/19 10:09 Interval history: Follow-up for: Atrial fibrillation with rapid ventricular response, abnormal EKG, hypokalemia Date of service 11/16/2019: He is feel pretty good today. 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) ENT: Denies dysphagia, Denies headache(s), Reports hearing loss, Denies epistaxis and Denies throat swelling Cardiovascular: Cardiovascular: Denies chest pain, Denies leg edema, Denies lightheadedness and Denies dyspnea Respiratory: Respiratory: Denies chest congestion, Denies cough and Denies dyspnea Gastrointestinal: Gastrointestinal: Denies abdominal pain, Denies dysphagia and Denies diarrhea Genitourinary: Genitourinary: Denies dysuria Musculoskeletal: Musculoskeletal: Denies back pain and Denies arthralgias Integumentary/Breasts: Skin/Breast: Denies rash Neurologic: Reports confusion, Reports frequent falls, Denies headache(s) and Denies weakness Psychiatric: Psychiatric: Reports no additional psychiatric complaints, Denies anxiety and Reports confusion Hematologic/Lymphatic: Hematologic/Lymphatic: Denies easy bruising Allergic/Immunologic: Allergic/Immunologic: Denies throat swelling Exam Narrative: Exam Narrative: older male, pleasant, no distress Const: General: comfortable, no acute distress and confusion Orientation/consciousness: confusion Other: HENMT: General nose exam: no epistaxis Mouth: Yes moist mucous membranes Eyes: Conjunctivae: conjunctivae normal Sclera: sclerae normal Pupils: Equal, round and reactive pupils present EOM: EOMs intact bilaterally Neck: Neck: suppl
[2019-11-16 12:13] LABS: SARS-CoV-2 RNA PCR Negative
--- NOTE | 2019-11-16 14:29 | PM.DS ---
DS: Admitting Diagnosis Admitting Diagnosis Admitting Diagnosis: Peritoneal abscess DS: Discharge Diagnosis Discharge Diagnosis (1) Atrial fibrillation with rapid ventricular response: Code(s): I48.91 - Unspecified atrial fibrillation Status: Chronic Assessment and Plan: metoprolol 100 mg q.12 hours and Cardizem CD 240 mg AM and 180mg PM Thought to be a poor candidate for oral anticoagulation because of falls and alcohol abuse. Stable for dischrage as per dance instructor (2) Hypokalemia: Code(s): E87.6 - Hypokalemia Status: Resolved (3) CHF (congestive heart failure): Qualifiers: Heart failure chronicity: unspecified Heart failure type: unspecified Qualified Code(s): I50.9 - Heart failure, unspecified Code(s): I50.9 - Heart failure, unspecified Status: Chronic (4) Abdominal abscess: Status: Chronic Assessment and Plan: Sp treatment drain reinserted (5) Chronic alcohol use: Code(s): Z72.89 - Other problems related to lifestyle Status: Chronic (6) COPD (chronic obstructive pulmonary disease): Qualifiers: COPD type: unspecified COPD Qualified Code(s): J44.9 - Chronic obstructive pulmonary disease, unspecified Code(s): J44.9 - Chronic obstructive pulmonary disease, unspecified Status: Chronic Assessment and Plan: PRN bronchodilators. (7) Essential hypertension: Code(s): I10 - Essential (primary) hypertension Status: Chronic Assessment and Plan: Monitor blood pressure. On Bp medications and lasix (8) GERD (gastroesophageal reflux disease): Qualifiers: Esophagitis presence: esophagitis presence not specified Qualified Code(s): K21.9 - Gastro-esophageal reflux disease without esophagitis Code(s): K21.9 - Gastro-esophageal reflux disease without esophagitis Status: Chronic Assessment and Plan: PPI therapy DS: Summary Hospital Course Reason for hospitalization: Chief complaint: a fib RVR and multiple abdominal abscesses Narrative: This is an unfortunate 69 year old male with known past medical history of CHF, atrial fibrillation, COPD, Alcohol abuse, HTN among other comorbidities who was just discharged from our Hospitalist service 2 days ago after an extended hospitalization this past month battling acute cholecystitis w/ abscess with a surgical drain and antibiotics by the surgical and infectious disease services and who now returned to the [facility] [place] [facility] after his drain became dislodged. The patient grew out ESBL E.coli from his drain as well as his urine culture. He was treated with imipenem this past month. Tonight in the ER the patient was also found to be in atrial fibrillation w/ RVR. Cardiology has decided that the patient is not a candidate for anticoagulation as he has a history of alcohol abuse with frequent falls. Tonight on my encounter with the patient he is alert and oriented to himself and place. He does appear slow to answer questions but can answer my questions appropriately. He denies any specific symptoms at this time including fever, chills, cough, chest pain, shortness of breath, palpitations, abdominal pain, dysuria, hematuria, or focal neurological deficits. The patient cannot tell me if he pulled out his percutaneous drain or if it simply fell out. He doesn't seem to even be aware that it existed. CT abd/Pelvis was obtained in the ER tonight and demonstrated multiple abdominal abscesses. General Surgery, Dr. Gabriel was consulted by ER provider who will manage the patient's abdominal abscesses and drain. He was treated with an IV bolus of cardizem and has been placed on a cardizem IV drip as well as oral potassium. No other complaints. Hospital Course: 11/15/19 11:53 patient is 69-year-old male with history of abdominal wall abscess and patient was recently treated with drain and IV antibiotics imipenem
[2019-11-16] MEDS: dilTIAZem HCL CD 180 MG CAP.ER.24H PO (18:02)
[2019-11-17] VITALS (20 sets, daily range): BP systolic 103–134; BP diastolic 54–88; PULSE 54–110; RESP 18–22; TEMP 36–36.1; O2SAT 96–99
[2019-11-17 05:43] LABS: Basophils Percent Auto 0.3 % (0.2-1.2); Eosinophils Percent Auto 0.4 % (0-4.4); Hematocrit 34.1 % (42.0-52.0); Hemoglobin 10.8 g/dL (14.0-18.0); Immature Granulocyte Absolute 0.04 K/mm3 (0.00-0.031); Immature Granulocyte Percent A 0.4 % (0-0.5); Lymphocytes Absolute Auto 1.54 K/mm3 (0.9-3.2); Lymphocytes Percent Auto 14.5 % (18.3-44.2); Mean Corpuscular HGB Conc 31.7 g/dl (32-36); Mean Corpuscular Hemoglobin 31.6 pg (26-34); Mean Corpuscular Volume 99.7 fl (80-100); Mean Platelet Volume 10.7 fl (7.4-10.4); Monocytes Absolute Auto 0.9 K/mm3 (0.1-0.6); Monocytes Percent Auto 8.8 % (2.6-8.5); Neutrophils Percent Auto 75.6 % (45.5-73.1); Platelet Count Result 194 k/mm3 (150-375); Red Blood Count 3.42 M/mm3 (4.6-6.20); Red Cell Distribution Width 17.6 % (11.5-14.5); White Blood Count 10.6 K/mm3 (4.5-10.0)
[2019-11-17 05:58] LABS: Alanine Aminotransferase 12 U/L (4-50); Albumin Level 2.7 g/dL (3.5-5.1); Alkaline Phosphatase 98 U/L (38-126); Anion Gap 3 mmol/L (8-16); Aspartate Amino Transferase 17 U/L (17-59); Bilirubin,Total 0.7 mg/dL (0.2-1.3); Blood Urea Nitrogen 17 mg/dL (9-20); Calcium 8.3 mg/dL (8.4-10.2); Carbon Dioxide 31 mmol/L (22-30); Chloride 103 mmol/L (98-107); Estimated CRCL calculation 93 ml/min; Estimated Glomerular Filt Rate > 60; Glucose 116 mg/dL (75-110); Magnesium 1.9 mg/dL (1.6-2.3); Potassium 3.4 mmol/L (3.4-5.0); Sodium 137 mmol/L (137-145)
[2019-11-17] MEDS: POTASSIUM CHLORIDE 10 MEQ TABLET.ER 40 MEQ PO (09:11)
[2019-11-17] MEDS: CHOLECALCIFEROL 1,000 UNIT TABLET 5000 UNITS PO (09:12)
[2019-11-17] MEDS: ASPIRIN 325 MG ENTERIC TABLET PO (09:12)
[2019-11-17] MEDS: FUROSEMIDE 40 MG TABLET PO (09:13)
[2019-11-17] MEDS: MAGNESIUM OXIDE 400 MG TABLET PO (09:13)
[2019-11-17] MEDS: FOLIC ACID 1 MG TABLET PO (09:13)
[2019-11-17] MEDS: METOPROLOL TARTRATE 50 MG TAB 100 MG PO ×2 (09:13→21:35)
[2019-11-17] MEDS: QUEtiapine FUMARATE 12.5 MG TABLET PO ×2 (09:14→21:34)
[2019-11-17] MEDS: MULTIVITAMINS THERAPEUTIC TAB (*BKC) 1 TABLET PO (09:14)
[2019-11-17] MEDS: THIAMINE HCL 100 MG TABLET PO (09:14)
[2019-11-17] MEDS: PANTOPRAZOLE 40 MG TABLET PO (09:14)
[2019-11-17] MEDS: polyethylene glycoL 3350 17 GM POWD.PACK PO (09:14)
[2019-11-17] MEDS: TIMOLOL MALEATE 0.5% OP SOLN 5 ML BOTTLE 1 DROP EACH EYE ×2 (09:15→21:35)
--- NOTE | 2019-11-17 10:49 | PM.PNCARD ---
Progress Note: A&P Assessment and Plan (1) Atrial fibrillation with rapid ventricular response: Code(s): I48.91 - Unspecified atrial fibrillation Status: Acute Assessment and Plan: Persistent atrial fibrillation, Rapid ventricular rate on admission, previously controlled with high-dose metoprolol and diltiazem, Unsure of etiology of recent decompensation; surgery and ID do not think the he is septic or actively infected. Currently taking metoprolol 100 mg q.12 hours and Cardizem CD 240 mg daily. Heart rate control not great. Was DC'd on dilt 240 mg once daily (not BID) but will add an evening dose of 180 mg po q pm. Watch BP. Thought to be a poor candidate for oral anticoagulation because of falls and alcohol abuse. DC today. (2) Abnormal EKG: Code(s): R94.31 - Abnormal electrocardiogram [ECG] [EKG] Status: Acute Assessment and Plan: Patient had new T-wave inversion anterolaterally on admissionbut denies any signs or symptoms of cardiac ischemia. Due to electrolyte problems or ischemia fr RVR? Troponin was negative and repeat EKG showed improvement of T-wave inversion with improved heart rate. (3) Hypokalemia: Code(s): E87.6 - Hypokalemia Status: Acute Assessment and Plan: Severe hypokalemia, 2.9 on admission, repleted. KCl 40 mg p.o. x1 today as his potassium is quite low (4) Hypomagnesemia: Code(s): E83.42 - Hypomagnesemia Status: Acute Assessment and Plan: Repleted , now on Mag-Ox also. (5) Gallbladder abscess: Code(s): K81.0 - Acute cholecystitis Status: Acute Assessment and Plan: GB Drain fell out, with fluid collections by CT scan but thought not to be actively infected Being treated conservatively. 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) ENT: Denies dysphagia, Denies headache(s), Reports hearing loss, Denies epistaxis and Denies throat swelling Cardiovascular: Cardiovascular: Denies chest pain, Denies leg edema, Denies lightheadedness and Denies dyspnea Respiratory: Respiratory: Denies chest congestion, Denies cough and Denies dyspnea Gastrointestinal: Gastrointestinal: Denies abdominal pain, Denies dysphagia and Denies diarrhea Genitourinary: Genitourinary: Denies dysuria Musculoskeletal: Musculoskeletal: Denies back pain and Denies arthralgias Integumentary/Breasts: Skin/Breast: Denies rash Neurologic: Reports confusion, Reports frequent falls, Denies headache(s) and Denies weakness Psychiatric: Psychiatric: Reports no additional psychiatric complaints, Denies anxiety and Reports confusion Hematologic/Lymphatic: Hematologic/Lymphatic: Denies easy bruising Allergic/Immunologic: Allergic/Immunologic: Denies throat swelling Exam Narrative: Exam Narrative: older male, pleasant, no distress Const: General: comfortable, no acute distress and confusion Orientation/consciousness: confusion Other: HENMT: General nose exam: no epistaxis Mouth: Yes moist mucous membranes Eyes: Conjunctivae: conjunctivae normal Sclera: sclerae normal Pupils: Equal, round and reactive pupils present EOM: EOMs intact bilaterally Neck: Neck: supple Thyroid: thyro
[2019-11-17] MEDS: POTASSIUM CHLORIDE 20 MEQ PACKET (FOR LIQUID) 40 MEQ PO (13:00)
--- NOTE | 2019-11-17 13:12 | PM.IMPN ---
Progress Note: A&P Assessment and Plan (1) Atrial fibrillation with rapid ventricular response: Code(s): I48.91 - Unspecified atrial fibrillation Status: Acute Assessment and Plan: Awaiting discharge and insurance coverage to SNF (2) Hypokalemia: Code(s): E87.6 - Hypokalemia Status: Resolved (3) CHF (congestive heart failure): Qualifiers: Heart failure chronicity: unspecified Heart failure type: unspecified Qualified Code(s): I50.9 - Heart failure, unspecified Code(s): I50.9 - Heart failure, unspecified Status: Chronic (4) Abdominal abscess: Status: Acute Assessment and Plan: Sp treatment (5) Chronic alcohol use: Code(s): Z72.89 - Other problems related to lifestyle Status: Chronic (6) COPD (chronic obstructive pulmonary disease): Qualifiers: COPD type: unspecified COPD Qualified Code(s): J44.9 - Chronic obstructive pulmonary disease, unspecified Code(s): J44.9 - Chronic obstructive pulmonary disease, unspecified Status: Chronic Assessment and Plan: PRN bronchodilators. (7) Essential hypertension: Code(s): I10 - Essential (primary) hypertension Status: Chronic Assessment and Plan: Monitor blood pressure. On Bp medications and lasix (8) GERD (gastroesophageal reflux disease): Qualifiers: Esophagitis presence: esophagitis presence not specified Qualified Code(s): K21.9 - Gastro-esophageal reflux disease without esophagitis Code(s): K21.9 - Gastro-esophageal reflux disease without esophagitis Status: Chronic Assessment and Plan: PPI therapy Subjective Date/time seen: 11/17/19 13:12 Interval history: 69 year old male with known past medical history of CHF, atrial fibrillation, COPD, Alcohol abuse, HTN among other comorbidities who was just discharged from our Hospitalist service 2 days ago after an extended hospitalization this past month acute cholecystitis w/ abscess with a surgical drain and antibiotics by the surgical and infectious disease services and who now returned to the hospital tonight from the group home after his drain became dislodged. No specific compliants. Awaiting discharge. Chronically ill Review of Systems Review of Systems: All systems reviewed & are unremarkable except as noted in HPI and below Exam Narrative: Exam Narrative: elderly frail Const: General: cooperative, comfortable, no acute distress, awake, confusion, ill appearing chronically, poor hygiene, tired appearing and uncomfortable Nutritional Appearance: overweight Orientation/consciousness: oriented to person, oriented to place and confusion Resp: Effort & Inspection: normal respiratory effort Auscultation: clear to auscultation bilaterally and diminished lung sounds Cardio: Rate: regular rate GI: Inspection: other (Surgical drain site without drainage, suture still in place+) Auscultation: normal bowel sounds Neuro: General: oriented to person, oriented to place and confusion Cranial nerves: Yes CN's II-XII intact bilaterally and Yes Equal, round and reactive pupils present Speech: normal speech Motor exam (neuro): 5/5 motor strength present throughout Sensory Exam: normal sensation Extrem: General: normal to inspection and no edema Psych: Mental Status: mental status grossly normal Affect: normal affect and Anxious affect present Objective Data Vital Signs Vital Signs: Vital Signs - 24 hr 11/16/19 15:36 11/16/19 15:47 11/16/19 16:00 Temperature 36.2 C L Pulse Rate 100 99 92 Respiratory Rate 18 18 20 Blood Pressure 107/63 Pulse Oximetry 100 11/16/19 19:55 11/16/19 19:59 11/16/19 20:00 Temperature 36.5 C Pulse Rate 80 92 90 Respiratory Rate 18 18 Blood Pressure 121/80 Pulse Oximetry 93 11/16/19 20:08 11/17/19 00:00 11/17/19 00:05 Temperature 36.1 C L Pulse Rate 90 83 94 Respiratory Rate 18 20
[2019-11-17] MEDS: dilTIAZem HCL CD 180 MG CAP.ER.24H PO (18:02)
[2019-11-18] VITALS (11 sets, daily range): BP systolic 104–116; BP diastolic 68–77; PULSE 72–92; RESP 15–20; TEMP 35.9–36.6; O2SAT 92–98
--- NOTE | 2019-11-18 03:42 | PCRCNOTE ---
Window of time for administration has passed. See next scheduled administration.
[2019-11-18 06:59] LABS: Glucose Point of Care 99 (65-105)
[2019-11-18] MEDS: CHOLECALCIFEROL 1,000 UNIT TABLET 5000 UNITS PO (08:04)
[2019-11-18] MEDS: THIAMINE HCL 100 MG TABLET PO (08:04)
[2019-11-18] MEDS: ASPIRIN 325 MG ENTERIC TABLET PO (08:04)
[2019-11-18] MEDS: POTASSIUM CHLORIDE 10 MEQ TABLET.ER 40 MEQ PO (08:04)
[2019-11-18] MEDS: TIMOLOL MALEATE 0.5% OP SOLN 5 ML BOTTLE 1 DROP EACH EYE (08:05)
[2019-11-18] MEDS: METOPROLOL TARTRATE 50 MG TAB 100 MG PO (08:05)
[2019-11-18] MEDS: FUROSEMIDE 40 MG TABLET PO (08:05)
[2019-11-18] MEDS: QUEtiapine FUMARATE 12.5 MG TABLET PO (08:05)
[2019-11-18] MEDS: MAGNESIUM OXIDE 400 MG TABLET PO (08:05)
[2019-11-18] MEDS: FOLIC ACID 1 MG TABLET PO (08:05)
[2019-11-18] MEDS: PANTOPRAZOLE 40 MG TABLET PO (08:05)
[2019-11-18] MEDS: MULTIVITAMINS THERAPEUTIC TAB (*BKC) 1 TABLET PO (08:05)
[2019-11-18] MEDS: polyethylene glycoL 3350 17 GM POWD.PACK PO (08:05)
--- NOTE | 2019-11-18 09:42 | PM.PNCARD ---
Progress Note: A&P Assessment and Plan (1) Atrial fibrillation with rapid ventricular response: Code(s): I48.91 - Unspecified atrial fibrillation Status: Acute Assessment and Plan: Persistent atrial fibrillation, Rapid ventricular rate on admission, previously controlled with high-dose metoprolol and diltiazem, Unsure of etiology of recent decompensation; surgery and ID do not think the he is septic or actively infected. Currently taking metoprolol 100 mg q.12 hours and Cardizem CD 240 mg daily. Heart rate control not great. Was DC'd on dilt 240 mg once daily (not BID) And and evening dose of 180 mg po q pm. Watch BP. Thought to be a poor candidate for oral anticoagulation because of falls and alcohol abuse. DC today. Will check a PA and lateral chest x-ray to re-evaluate his fluid status following diuresis. (2) Abnormal EKG: Code(s): R94.31 - Abnormal electrocardiogram [ECG] [EKG] Status: Acute Assessment and Plan: Patient had new T-wave inversion anterolaterally on admissionbut denies any signs or symptoms of cardiac ischemia. Due to electrolyte problems or ischemia fr RVR? Troponin was negative and repeat EKG showed improvement of T-wave inversion with improved heart rate. (3) Hypokalemia: Code(s): E87.6 - Hypokalemia Status: Resolved Assessment and Plan: Replaced. (4) Hypomagnesemia: Code(s): E83.42 - Hypomagnesemia Status: Acute Assessment and Plan: Repleted , now on Mag-Ox also. (5) Gallbladder abscess: Code(s): K81.0 - Acute cholecystitis Status: Acute Assessment and Plan: GB Drain fell out, with fluid collections by CT scan but thought not to be actively infected Being treated conservatively. Subjective Date/time seen: 11/18/19 09:42 Interval history: Follow-up for: Atrial fibrillation with rapid ventricular response, abnormal EKG, hypokalemia Date of service 11/18/2019: feels okay. Waiting on placement. No chest pain or shortness breath. 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) ENT: Denies dysphagia, Denies headache(s), Reports hearing loss, Denies epistaxis and Denies throat swelling Cardiovascular: Cardiovascular: Denies chest pain, Denies leg edema, Denies lightheadedness and Denies dyspnea Respiratory: Respiratory: Denies chest congestion, Denies cough and Denies dyspnea Gastrointestinal: Gastrointestinal: Denies abdominal pain, Denies dysphagia and Denies diarrhea Genitourinary: Genitourinary: Denies dysuria Musculoskeletal: Musculoskeletal: Denies back pain and Denies arthralgias Integumentary/Breasts: Skin/Breast: Denies rash Neurologic: Reports confusion, Reports frequent falls, Denies headache(s) and Denies weakness Psychiatric: Psychiatric: Reports no additional psychiatric complaints, Denies anxiety and Reports confusion Hematologic/Lymphatic: Hematologic/Lymphatic: Denies easy bruising Allergic/Immunologic: Allergic/Immunologic: Denies throat swelling Exam Narrative: Exam Narrative: older male, pleasant, no distress Const: General: comfortable, no acute distress and confusion Orientation/consciousness: confusion Other: HENMT: General nose exam: no epistaxis Mouth: Yes moist mucous membranes Eyes: Conjunctivae: conjunctivae normal Sclera: sclerae normal Pupils: Equal, round and reactive pupils present EOM: EOMs intact bilaterally Neck: Neck: supple Thyroid: thyroid nor
--- NOTE | 2019-11-18 11:56 | PC.NURSE ---
Patient to radiology per stretcher.
--- NOTE | 2019-11-18 12:12 | PC.NURSE ---
Patient return from radiology per stretcher.
--- NOTE | 2019-11-18 13:20 | PM.DS ---
DS: Admitting Diagnosis Admitting Diagnosis Admitting Diagnosis: 69 year old male with known past medical history of CHF, atrial fibrillation, COPD, Alcohol abuse, HTN among other comorbidities who was just discharged from our Hospitalist service 2 days ago after an extended hospitalization this past month acute cholecystitis w/ abscess with a surgical drain and antibiotics by the surgical and infectious disease services and who now returned to the hospital tonight from the senior living after his drain became dislodged. Awaiting discharge. Chronically ill with pressure sore on his buttocks and immobility. Pt transfers with moderate assistance. he is only walking 0-3 feet with moderate assistance and wheeled walker. needs assisted to get back his independence. Pressure sores on buttocks pt needs wound care in SNF. DS: Discharge Diagnosis Discharge Diagnosis (1) Atrial fibrillation with rapid ventricular response: Code(s): I48.91 - Unspecified atrial fibrillation Status: Chronic Assessment and Plan: metoprolol 100 mg q.12 hours and Cardizem CD 240 mg AM and 180mg PM Thought to be a poor candidate for oral anticoagulation because of falls and alcohol abuse. Stable for dischrage as per mechanical sound technician (2) Hypokalemia: Code(s): E87.6 - Hypokalemia Status: Resolved (3) CHF (congestive heart failure): Qualifiers: Heart failure chronicity: unspecified Heart failure type: unspecified Qualified Code(s): I50.9 - Heart failure, unspecified Code(s): I50.9 - Heart failure, unspecified Status: Chronic (4) Abdominal abscess: Status: Acute Assessment and Plan: Sp treatment drain reinserted (5) Chronic alcohol use: Code(s): Z72.89 - Other problems related to lifestyle Status: Chronic (6) COPD (chronic obstructive pulmonary disease): Qualifiers: COPD type: unspecified COPD Qualified Code(s): J44.9 - Chronic obstructive pulmonary disease, unspecified Code(s): J44.9 - Chronic obstructive pulmonary disease, unspecified Status: Chronic Assessment and Plan: PRN bronchodilators. (7) Essential hypertension: Code(s): I10 - Essential (primary) hypertension Status: Chronic Assessment and Plan: Monitor blood pressure. On Bp medications and lasix (8) GERD (gastroesophageal reflux disease): Qualifiers: Esophagitis presence: esophagitis presence not specified Qualified Code(s): K21.9 - Gastro-esophageal reflux disease without esophagitis Code(s): K21.9 - Gastro-esophageal reflux disease without esophagitis Status: Chronic Assessment and Plan: PPI therapy DS: Summary Time Spent with Patient Time attestation: Total time spent providing and/or coordinating discharge services:40 minutes on day of dischrage Exam Narrative: Exam Narrative: elderly frail Resp: Effort & Inspection: normal respiratory effort Auscultation: clear to auscultation bilaterally and diminished lung sounds Cardio: Rate: regular rate GI: Inspection: other (Surgical drain site without drainage, suture still in place+) Auscultation: normal bowel sounds Neuro: General: oriented to person and oriented to place Cranial nerves: Yes CN's II-XII intact bilaterally and Yes Equal, round and reactive pupils present Speech: normal speech Motor exam (neuro): 5/5 motor strength present throughout Sensory Exam: normal sensation Extrem: General: normal to inspection and no edema Psych: Mental Status: mental status grossly normal Affect: normal affect and Anxious affect present DS: Data Data Completed and Pending Labs on day of discharge: Labs from last 24 hours 11/18/19 06:53 POC Capillary Glucose 99 Discharge Plan Discharge Attending physician on discharge: Christa Tesfaye Consulting providers: [facility] ; Rui Gabriel ; Donavan Monahan
[2019-11-18] MEDS: SILVERGEL (ELTA) 45 ML 1 APPLIC TOPICAL (14:37)
== END 2019-11-18 15:25 | DRG 371 ==
LOC: ANHED 11-11 02:32 → ANHIMU 11-11 11:15 → ANH2MED 11-14 17:20 → ANHIMU 11-23 08:56
PROVIDERS: Internal Medicine Cardiovascular Disease; Admitting Provider Family Medicine; Emergency Provider Emergency Medicine; PCP Family Medicine; Visit Provider Family Medicine
DX: K65.1 Peritoneal abscess (principal); K75.0 Abscess of liver; K81.0 Acute cholecystitis; I48.91 Unspecified atrial fibrillation; Z11.59 Encounter for screening for other viral diseases; E87.6 Hypokalemia; K81.1 Chronic cholecystitis; J44.9 Chronic obstructive pulmonary disease, unspecified; I11.9 Hypertensive heart disease without heart failure; I50.9 Heart failure, unspecified; K21.9 Gastro-esophageal reflux disease without esophagitis; E83.42 Hypomagnesemia; F10.10 Alcohol abuse, uncomplicated; L89.329 Pressure ulcer of left buttock, unspecified stage; L89.319 Pressure ulcer of right buttock, unspecified stage; N40.0 Benign prostatic hyperplasia without lower urinary tract symptoms; D64.9 Anemia, unspecified; E55.9 Vitamin D deficiency, unspecified; R94.31 Abnormal electrocardiogram [ECG] [EKG]; E78.5 Hyperlipidemia, unspecified; F17.210 Nicotine dependence, cigarettes, uncomplicated; Z86.73 Personal history of transient ischemic attack (TIA), and cerebral infarction without residual deficits; Z98.42 Cataract extraction status, left eye; Z98.41 Cataract extraction status, right eye
CPT/HCPCS: 36415; 71045; 71046; 74177; 80048; 80053; 81001; 83605; 83735; 83880; 84443; 84484; 85025; 85610; 87040; 87077; 87086; 87088; 87186; 87635; 92507; 92526; 92610; 93005; 94640; 97110; 97161; 97165; 97530; 99282; A9270; C9803; J0692; J1956; J3370; J3475; J3480; Q9967; U0003

== ENCOUNTER 2019-11-25 16:06 | Inpatient (IN) | payer MEDICARE, SELFPAY ==
[2019-11-25] VITALS (7 sets, daily range): BP systolic 126–136; BP diastolic 90–94; PULSE 89–104; RESP 16–24; TEMP 36.4–37.1; O2SAT 95–100; BMI 24.5
--- NOTE | ~2019-11-25 | CT_ITS ---
EXAMINATION: CT chest abdomen pelvis wo con DATE: 11/30/2019 09:43 INDICATION: Perihepatic abscess. TECHNIQUE: Computed tomography (CT) of the chest, abdomen, and pelvis was performed without intraveno us contrast. Automated exposure control and iterative reconstruction technique were employed. The dos e-length product was 757.66 mGy-cm. COMPARISON: CT abdomen and pelvis 11/25/2019 FINDINGS: CHEST CT: There is mild emphysema. There are small pleural effusions. There is mild atelectasis in left lower l obe. There are airspace and groundglass opacities in laterobasal segment right lower lobe, consistent with infarct. A calcified left lung nodule and calcified left hilar lymph nodes are consistent with old granulomatous disease. There is a 3.0 cm nodule in right thyroid lobe. There is left atrial enlar gement of the heart. There are coronary artery calcifications. There is a small pericardial effusion. There are old bilateral anterior rib fractures. There is a chronic compression fracture of T11. ABDOMEN/PELVIS CT: There is diffuse hepatic steatosis. Calcifications in the liver and spleen are consistent with old gr anulomatous disease. There are gallstones in the gallbladder, which is normal in size. The pancreas a nd adrenal glands are normal. There are peripelvic cysts in right kidney measuring up to 4.3 cm. Ther e is a 1 mm left kidney stone. There is a percutaneous drain anterior to the liver. There is no resid ual abscess in this area. There is a 1.1 cm abscess at the undersurface of right hepatic lobe. There is diverticulosis of the colon without evidence of diverticulitis. The appendix is normal. Stool dist ends the rectum. There is a small volume of perihepatic ascites. There is a chronic compression fract ure of L2. There is severe lower lumbar spondylosis. IMPRESSION: 1. Percutaneous drain anterior to the liver. No significant residual abscess in this area. 2. Stable 1.1 cm abscess at the undersurface of right hepatic lobe. 3. Small volume of perihepatic ascites. 4. Small pleural effusions. 5. Stable infarct in laterobasal segment of right lung lower lobe. 6. Worsened small pericardial effusion. 7. Right thyroid nodule. Consider thyroid ultrasound for risk stratification. Reviewed, dictated and finalized at location B.
--- NOTE | ~2019-11-25 | CT_ITS ---
EXAMINATION: CT guide absc cath placement DATE: 11/26/2019 12:42 INDICATION: Perihepatic abscess. TECHNIQUE: The procedure including the risks, benefits, and alternatives was discussed with the patie nt. Risks discussed included bleeding and infection. The patient understood the risks and benefits an d agreed to proceed. The skin overlying the abdomen was prepped and draped in usual sterile fashion. Anesthetic was administered with 1% lidocaine subcutaneously. An 18 gauge trochar needle was insert ed into the perihepatic abscess with CT guidance. The needle was exchanged over a wire for 6 [place], 8 [place], and 10 [place] dilators and then for a 10 [place] pigtail catheter. The catheter was stitched to the skin, and a sterile dressing was applied. The mA was adjusted according to patient size. Iter ative reconstruction technique was employed. The dose-length product was 153.75 mGy-cm. There were no immediate complications. FINDINGS: CT images demonstrate the catheter within the fluid collection. 8 mL fluid was aspirated fo r testing. IMPRESSION: 1. Successful CT-guided perihepatic abscess drainage. 2. 8 mL blood-streaked, opaque, humphries fluid was sent for aerobic and anaerobic cultures. Reviewed, dictated and finalized at location A. IMPRESSION: 1. Successful CT-guided perihepatic abscess drainage. 2. 8 mL blood-streaked, opaque, humphries fluid was sent for aerobic and anaerobic cu ltures.
--- NOTE | ~2019-11-25 | CT_ITS ---
EXAMINATION: CT brain wo con DATE: 11/27/2019 11:41 INDICATION: Anisocoria. Fall. TECHNIQUE: Computed tomography (CT) of the head was performed without intravenous contrast. The mA wa s adjusted according to patient size. Iterative reconstruction technique was employed. The dose-lengt h product was 681.00 mGy-cm. COMPARISON: Head CT 11/07/2019 FINDINGS: There are old lacunar infarcts in the margaret and right caudate nucleus. There are scattered a reas of low attenuation in the cerebral white matter, which is within normal limits for the patient's age. There is no intracranial hemorrhage, acute infarction, or abnormal intracranial mass lesion. Th e ventricles are normal in size. The paranasal sinuses are clear. There are likely changes of ocular lens replacement surgeries. There is a chronic 3 mm density in the vitreous of right ocular globe. Th ere are small bilateral mastoid effusions. IMPRESSION: 1. 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 Reviewed, dictated and finalized at location A.
--- NOTE | ~2019-11-25 | US_ITS ---
EXAMINATION: US venous doppler [facility] DATE: 11/26/2019 11:51 INDICATION: Acute pulmonary embolism TECHNIQUE: Manriquez scale images without and with compression and Doppler images of the bilateral lower e xtremity veins were obtained. COMPARISON: None FINDINGS: The right common femoral vein, femoral vein, popliteal vein, peroneal trunk, posterior tibial veins, and greater saphenous vein are patent. There is partial thrombosis of the profunda femoral vein. The left common femoral vein, femoral vein, popliteal vein, peroneal trunk, posterior tibial veins, a nd greater saphenous vein are patent. There is partial thrombosis of the profunda femoral vein. IMPRESSION: 1. Partial thrombosis of the bilateral profunda femoral veins. These findings were discussed with [facility] at 1206 hours on 11/26/2019. Reviewed, dictated and finalized at location A.
--- NOTE | ~2019-11-25 | CT_ITS ---
EXAMINATION: CT abdomen pelvis w con DATE: 11/25/2019 17:08 INDICATION: Abdominal abscess TECHNIQUE: Computed tomography (CT) of the abdomen and pelvis was performed with 100 mL Omnipaque-350 intravenous contrast. Automated exposure control and iterative reconstruction technique were employe d. The dose-length product was 546.74 mGy-cm. COMPARISON: 11/11/2019 FINDINGS: Small bilateral pleural effusions, right greater than left. There is consolidation and groundglass op acity in the dependent right lower lobe and favor atelectasis over pneumonia or pulmonary edema. Hear t size is normal with mild left atrial enlargement. Small pericardial effusion. Atherosclerotic coron claudio artery calcifications. Diffuse hepatic steatosis. Splenic calcific calcification consistent with old granulomatous disease. Pancreas and bilateral adrenal glands are normal. Bilateral renal cysts th e largest on the right measuring 4.1 cm. Recurrence in multiple prior peripherally enhancing fluid collections, the largest along the anterior inferior margin of the left hepatic lobe measuring 9.5 x 2.9 x 11.1 cm. There is a smaller deeper bi lobed collection at the gallbladder fossa together measuring 3.0 x 2.4 x 2.4 cm. 3.4 x 1.1 x 3.3 cm c ollection in the overlying subcutaneous fat of the anterior wall of the right upper quadrant. Finally there is a tiny collection measuring approximately 1.3 cm in maximal dimension along the posterior m argin of the right hepatic lobe. There is an additional small amount of nonloculated ascites along th e liver and spleen. Coombs catheter and intraluminal gas within the nearly decompressed bladder. Extensive colonic diverti culosis without adjacent inflammatory change to suggest diverticulitis. Small bowel and appendix are normal. No free intraperineal gas. No pathologically enlarged abdominal or pelvic lymphadenopathy. Th ere is calcified atherosclerosis of the aorta and many of the other arteries. No interval change in c hronic compression fractures at T10, T11 and L2. IMPRESSION: 1. Reaccumulation of fluid within several perihepatic organized rim-enhancing fluid collections as de tailed above which could represent recurrent abscesses. 2. Small bilateral pleural effusions with associated dependent atelectasis versus less likely pneumon ia or pulmonary edema in the right lower lobe. 3. Left atrial enlargement and small pericardial effusion. 4. Diverticulosis. Reviewed, dictated and finalized at location A. IMPRESSION: 1. Reaccumulation of fluid within several perihepatic organized rim-enhancing f luid collections as detailed above which could represent recurrent abscesses. 2. Small bilateral pleural effusions with associated dependent atelectasis vers us less likely pneumonia or pulmonary edema in the right lower lobe. 3. Left atrial enlargement and small pericardial effusion. 4. Diverticulosis.
--- NOTE | 2019-11-25 16:14 | ED.GENADULT ---
HPI - General Adult General Chief complaint: Wound/Laceration Stated complaint: WOUND Time Seen by Provider: 11/25/19 16:08 Source: patient and EMS Mode of arrival: EMS Limitations: no limitations History of Present Illness HPI narrative: Patient comes to the ED via EMS from the detention, for pus draining from his opening in his abdomen. He was just discharged from [facility] for complications of cholecystectomy. He had multiple abscesses in his abdomen with drains, and was sent to the detention for recovery. He says he has no pain, I would like some ice water. He says the worst thing currently is that he has to drink thickened warm liquids. He denies any recent illness. Onset (ago): hour(s) Related Data Home Medications Medication Instructions Recorded Confirmed aspirin 325 mg PO DAILY 07/25/19 11/11/19 cholecalciferol (vitamin D3) 125 mcg PO DAILY 07/25/19 11/11/19 [Vitamin D3] multivitamin 1 cap PO DAILY 09/07/19 11/11/19 timolol maleate 1 drp OPHTHALMIC (EYE) Q12HR 11/11/19 11/11/19 Allergies Allergy/AdvReac Type Severity Reaction Status Date / Time Penicillins Allergy Severe Hives / Verified 11/25/19 16:22 [place] Review of Systems Review of Systems: Narrative: CONSTITUTIONAL: Denies fever, chills, or sweats. ENT: Denies rhinorrhea, congestion, sore throat, or otalgia. CARDIOVASCULAR: Denies chest pain, palpitations, or edema. RESPIRATORY: Denies cough or dyspnea. GASTROINTESTINAL: Denies abdominal pain, nausea, vomiting, or diarrhea. MUSCULOSKELETAL: Denies back pain, joint pain, or myalgia. NEUROLOGIC: Denies headache, numbness, or weakness. All systems reviewed & are unremarkable except as noted in HPI and below PMFSH Past Medical History Medical History Acute cholecystitis 07/2019 treated with antibiotic therapy, no cholecystectomy due to being a poor surgical candidate. 10/08/2019 - returned to hospital with intra-abdominal abscess in the gallbladder fossa and extending around liver - thought to be related to gallbladder perforation. Treated with antibiotics and percutaneous drainage x 3. Alcohol abuse Atrial fibrillation Not on long-term anticoagulation per Cardiology. BPH (benign prostatic hyperplasia) CHF (congestive heart failure) Echocardiogram on 10/20/19 showing EF 55-60% with variable contractility due to atrial fibrillation. Aortic valve sclerosis without hemodynamically significant stenosis by Doppler. Trace TR, moderate pulmonary hypertension. Small circumferential pericardial effusion. Chronic anemia COPD (chronic obstructive pulmonary disease) Essential hypertension GERD (gastroesophageal reflux disease) Histoplasmosis Retinal histoplasmosis and very poor vision History of BPH History of TIAs Hyperlipidemia Vitamin D deficiency Surgical History Surgical History History of bilateral cataract extraction History of vasectomy Male circumcision Social History Social History Social History: Patient was drinking (3) 4 oz drinks of Tequila a day prior to his hospitalization in July. He was recently hospitalized for a month and discharged to [facility] on 11/09/19 from [place]. Primary care physician: Dr. Jean-Claude Crawford Code status: Full code. Surrogate decision maker is Raine phone number [phone]. The patient has 2 children. 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 Smoking packs per day: 1.5 Smoking cigarettes per day: 30.0 Years smoked: 54 Smoking pack-years: 81.00 Smoking status: Former smoker Tobacco type: cigarettes Second hand tobacco smoke exposure: Yes Smoking end date: 10/08/19 Alcohol intake: former Drinks per week: 2 Substance use: unknown Substance use type: does not use Last use: 1970 Additional living arrangements comments:
[2019-11-25 16:38] LABS: Basophils Percent Auto 0.3 % (0.2-1.2); Eosinophils Absolute Auto 0.1 K/mm3 (0-0.3); Eosinophils Percent Auto 0.7 % (0-4.4); Hematocrit 37.3 % (42.0-52.0); Hemoglobin 12.1 g/dL (14.0-18.0); Immature Granulocyte Absolute 0.03 K/mm3 (0.00-0.031); Immature Granulocyte Percent A 0.4 % (0-0.5); Lymphocytes Absolute Auto 1.57 K/mm3 (0.9-3.2); Lymphocytes Percent Auto 21.1 % (18.3-44.2); Mean Corpuscular HGB Conc 32.4 g/dl (32-36); Mean Corpuscular Hemoglobin 31.6 pg (26-34); Mean Corpuscular Volume 97.4 fl (80-100); Mean Platelet Volume 10.1 fl (7.4-10.4); Monocytes Absolute Auto 0.5 K/mm3 (0.1-0.6); Monocytes Percent Auto 6.6 % (2.6-8.5); Neutrophils Absolute Auto 5.3 K/mm3 (1.3-6.7); Neutrophils Percent Auto 70.9 % (45.5-73.1); Platelet Count Result 214 k/mm3 (150-375); Red Blood Count 3.83 M/mm3 (4.6-6.20); Red Cell Distribution Width 16.9 % (11.5-14.5); White Blood Count 7.5 K/mm3 (4.5-10.0)
[2019-11-25 16:49] LABS: Alanine Aminotransferase 21 U/L (4-50); Albumin Level 2.8 g/dL (3.5-5.1); Alkaline Phosphatase 207 U/L (38-126); Anion Gap 6 mmol/L (8-16); Aspartate Amino Transferase 24 U/L (17-59); Bilirubin,Total 0.7 mg/dL (0.2-1.3); Blood Urea Nitrogen 14 mg/dL (9-20); Calcium 8.2 mg/dL (8.4-10.2); Carbon Dioxide 31 mmol/L (22-30); Chloride 101 mmol/L (98-107); Estimated CRCL calculation 93 ml/min; Estimated Glomerular Filt Rate > 60; Glucose 106 mg/dL (75-110); Potassium 3.4 mmol/L (3.4-5.0); Sodium 138 mmol/L (137-145)
--- NOTE | 2019-11-25 23:24 | ADMGEN ---
This patient, Lloyd Redman, was admitted to 2 Medical Room 256-. Patient/family oriented to hospital policies and general routines including ID bracelet, bed and alarms, visiting hours, pain management, procedures, bathroom and other care routines, personal items, smoking policy, room service/diet, and visiting hours. Valuables list has been completed. Information on how to activate the Rapid Response Team has been discussed. Patient/Family are encouraged to report perceived risks to care and to ask questions if they do not understand what they are told or what they should do.
[2019-11-26] VITALS (17 sets, daily range): BP systolic 114–139; BP diastolic 86–101; PULSE 52–114; RESP 12–18; TEMP 36.3–36.8; O2SAT 94–100; BMI 24.5
--- NOTE | 2019-11-26 00:51 | PM.IMHP ---
H&P: HPI History of Present Illness Date/Time: 11/26/19 00:51 Chief complaint: recurrent abdo abscesses Narrative: Lloyd Redman is a 69 year old male comes from here [facility]. The patient was discharged from 11/18/2019. The patient was admitted at that time for atrial fibrillation wrapped with rapid ventricular response. Patient had have added gallbladder drain placed at 1 time. He had an abscess which was drained. The patient has an abdominal wound and has been draining pus from the opening abdomen the patient was seen a by infectious disease it was felt that the cultures from the abdomen were septic. When the patient was discharged earlier this month and I did not see with the patient was on any antibiotics at that time. He was discharged from here on 11/18/2019 it looks like patient had been here previously and was discharged on 11/16/2019 where he had been on an extensive hospitalization with acute cholecystitis with abscess with a surgical drain and antibiotics by surgery and infectious disease services. It looks like he had been admitted on 11/11/2019 when his drain had become dislodged. It looks like the drain had been placed the previous month. The patient had abdominal CT performed today that the patient had reaccumulation of fluid within several perihepatic organized rim enhancing fluid collections is he detected above recurrent abscesses. Small bilateral pleural effusions with associated dependent atelectasis versus least likely pneumonia her pulmonary edema. Diverticulosis. I would [place] ED provider to consult surgery she stated that she had called Dr. Fernandez who agreed to see the patient.The patient appears to be somewhat confused and has a difference in the size of his pupils which was evaluated in the past and he has not had a stroke and this is chronic. The left pupil Is bigger than the right. This is chronic. The patient has a large abdominal dressing on today and I did not change that dressing. It was just placed today. 11/11/2019 is found to have E coli ESBL in his urine today blood cultures have been pending I do not see any wound cultures currently. Looks like in October they spencer some cultures from his wound on his abdomen and there was no growth.. The patient was started on Levaquin. No white count is noted. He is afebrile. H&H is 12.1 and 37.3. He has no complaints of any abdominal pain. Patient is being admitted for a recurrent abdominal abscesses. I spent approximately 1 hour the patient. The patient is confused where he came from. Date of service 11/25/2019 Review of Systems Review of Systems: All systems reviewed & are unremarkable except as noted in HPI and below Constitutional: Constitutional: Reports as per HPI and Reports no additional constitutional complaints Eyes: Eyes: Reports as per HPI and Reports no additional eye complaints ENT: Reports system reviewed and no additional complaints, except as documented and Reports Normal hearing present Cardiovascular: Cardiovascular: Reports no additional cardiovascular complaints Respiratory: Respiratory: Reports no additional respiratory complaints and Reports no additional respiratory complaints Gastrointestinal: Gastrointestinal: Reports as per HPI and Reports no additional gastrointestinal complaints Musculoskeletal: Musculoskeletal: Reports no additional musculoskeletal complaints Integumentary/Breasts: Skin/Breast: Reports system reviewed and no additional complaints, except as docu and Reports as per HPI Neurologic: Reports system reviewed and no additional complaints, except as documented, Reports as per HPI and Reports Normal hearing present Psychiatric: Psychiatric: Reports no additional psychiatric complaints and Reports as per HPI Endocrine: Endocrine: Reports no additional endocrine complaints Hematologic/Lymphatic: Hematologic/Lymphatic: Reports no additional hematologic/lymphatic complaints Allergic/Immunologic:
[2019-11-26 02:46] LABS: Add Urine Microscopic? YES; Appearance Urine Cloudy (Clear); Bacteria Urine 1+ /hpf; Bilirubin Urine Negative (Negative); Blood Urine Negative (Negative); Color Urine Yellow (Yellow); Glucose Urine UA Negative (Negative); Ketones Urine Negative (Negative); Leukocyte Esterase Ur 3+ LEU/UL (Negative); Mucus Urine Rare /lpf; Nitrate Urine Positive (Negative); Protein Urine 1+ mg/dL (Negative); RBC Urine 21-50 /hpf (0-2); WBC Urine >75 /hpf
[2019-11-26 03:12] LABS: Specific Grav Ur 1.058 (1.001-1.035)
[2019-11-26 08:20] LABS: Basophils Percent Auto 0.3 % (0.2-1.2); Eosinophils Percent Auto 0.5 % (0-4.4); Hematocrit 33.7 % (42.0-52.0); Hemoglobin 11.1 g/dL (14.0-18.0); Immature Granulocyte Absolute 0.01 K/mm3 (0.00-0.031); Immature Granulocyte Percent A 0.2 % (0-0.5); Lymphocytes Absolute Auto 1.31 K/mm3 (0.9-3.2); Mean Corpuscular HGB Conc 32.9 g/dl (32-36); Mean Corpuscular Hemoglobin 31.8 pg (26-34); Mean Corpuscular Volume 96.6 fl (80-100); Mean Platelet Volume 9.9 fl (7.4-10.4); Monocytes Absolute Auto 0.4 K/mm3 (0.1-0.6); Monocytes Percent Auto 6.4 % (2.6-8.5); Neutrophils Absolute Auto 4.8 K/mm3 (1.3-6.7); Neutrophils Percent Auto 72.6 % (45.5-73.1); Platelet Count Result 205 k/mm3 (150-375); Red Blood Count 3.49 M/mm3 (4.6-6.20); Red Cell Distribution Width 16.6 % (11.5-14.5); White Blood Count 6.6 K/mm3 (4.5-10.0)
[2019-11-26 08:33] LABS: Lactic Acid Reflex 0.7 mmol/L (0.7-2.1)
[2019-11-26 08:35] LABS: Alanine Aminotransferase 17 U/L (4-50); Albumin Level 2.3 g/dL (3.5-5.1); Alkaline Phosphatase 163 U/L (38-126); Anion Gap 6 mmol/L (8-16); Aspartate Amino Transferase 20 U/L (17-59); Bilirubin,Total 0.5 mg/dL (0.2-1.3); Blood Urea Nitrogen 13 mg/dL (9-20); CRP 3.3 mg/dL (<1.0); Calcium 7.9 mg/dL (8.4-10.2); Carbon Dioxide 30 mmol/L (22-30); Chloride 99 mmol/L (98-107); Estimated CRCL calculation 93 ml/min; Estimated Glomerular Filt Rate > 60; Glucose 85 mg/dL (75-110); Potassium 3.2 mmol/L (3.4-5.0); Sodium 135 mmol/L (137-145)
--- NOTE | 2019-11-26 09:16 | ECG_ITS ---
Measurements Intervals [place] Rate: 122 P: CT: 0 QRS: 21 QRSD: 88 T: 0 QT: 223 QTc: 319 Interpretive Statements ATRIAL FIBRILLATION WITH RAPID VENTRICULAR RESPONSE NONSPECIFIC ST & T-WAVE ABNORMALITY- INF/HIGH LAT LEADS ABNORMAL ECG Electronically Signed On 11-26-2019 10:38:39 CDT by Michael Cedeno D.O.
--- NOTE | 2019-11-26 09:22 | PM.IMPN ---
Progress Note: A&P Assessment and Plan (1) Pulmonary embolism: Code(s): I26.99 - Other pulmonary embolism without acute cor pulmonale Status: Acute Assessment and Plan: Called by radiology about CT scan from last night that has RLL PE and possibly infarct. Other providers have not recommended anticoagulation because Thought to be a poor candidate for oral anticoagulation because of falls and alcohol abuse . He is in a NH and no obvious contraindication. Will start Lovenox and continue to assess. PT/OT to assess gait ability. Radiology to place drain today but Lovenox okay to give now. Check Doppler. Doppler positive for partial thrombosis of the bilateral profunda femoral veins. (2) Abdominal abscess: Status: Chronic Assessment and Plan: CT scan showing multiple rim enhancing abscesses. No evidence of symtomatic infectious process: no fever, chills, elevated WBC. CRP 3.3 butlower than in October. One is actively draining. GenSurg consulted. Levaquin started in ER. Will continue Levaquin. Can prolong QTc as can Seroquel so will check EKG. Add Flagyl since source probably from GB. Plan for drain placement by IR. Follow up on blood cultures and wound cultures. EKG reviewed: QTc 319, AFib with rate 122. nonspecific ST and T wave changes in the high lateral leads(that are better now then prior EKG 11/13/19) (3) Atrial fibrillation: Code(s): I48.91 - Unspecified atrial fibrillation Status: Chronic Assessment and Plan: Patient chronic atrial fibrillation occasional RVR. Currently on diltiazem and metoprolol. No oral anticoagulation because of fall risk and alcohol abuse. resume home medications and monitor for now. May need adjustment depending on how well controlled he is. (4) CHF (congestive heart failure): Qualifiers: Heart failure chronicity: unspecified Heart failure type: unspecified Qualified Code(s): I50.9 - Heart failure, unspecified Code(s): I50.9 - Heart failure, unspecified Status: Chronic Assessment and Plan: Stable. Not in acute exacerbation. Patient is on Lasix which will continue. He is also on potassium replacement. Continue to monitor fluid balance. (5) COPD (chronic obstructive pulmonary disease): Qualifiers: COPD type: unspecified COPD Qualified Code(s): J44.9 - Chronic obstructive pulmonary disease, unspecified Code(s): J44.9 - Chronic obstructive pulmonary disease, unspecified Status: Chronic Assessment and Plan: Stable. No wheezing. Continue nebulizer treatments. (6) Essential hypertension: Code(s): I10 - Essential (primary) hypertension Status: Chronic Assessment and Plan: Patient's blood pressure was reviewed on 11/25 Blood pressure remains well controlled. Will continue current medications with diltiazem and metoprolol (7) Anxiety: Code(s): F41.9 - Anxiety disorder, unspecified Status: Chronic Assessment and Plan: Mood stable. Continue Alprazolam. (8) History of BPH: Code(s): Z87.438 - Personal history of other diseases of male genital organs Status: Chronic Assessment and Plan: Patient has a Coombs catheter and at this time is draining dark yellow urine. Not on medications for BPH. Subjective Date/time seen: 11/26/19 09:22 Interval history: 69yo male with frequent hospitalizations for chronic intra-abdominal infection here for active purulent drainage from a small abd wound. He feels fine. He had minor abd pian just prior to the wound erupting prior to admission. Since, he has had no abd pain. No fever or chills. No CP. No n/v. No diarrhea . Exam Narrative: Exam Narrative: AF 125/86 100 18 99% ra Gen - NARD Chest - CTA bilaterally, nml RR CV - Irregularly irregular and tachycardic. Abd - Soft. Nontender. Positive bowel sounds. Less than 1 cm open area in the e
[2019-11-26 09:28] LABS: INR 1.3; Prothrombin Time 15.7 Seconds (11.1-14.7)
[2019-11-26 09:29] LABS: Partial Thromboplastin Time 31.3 SECONDS (22.3-36.8)
[2019-11-26] MEDS: metroNIDAZOLE 250MG/ISO 50 ML 250 MG/50 ML BAG 50 MG IVPB ×3 (10:50→23:26)
[2019-11-26] MEDS: METOPROLOL TARTRATE 50 MG TAB 100 MG PO ×2 (10:50→20:17)
[2019-11-26] MEDS: ENOXAPARIN 80 MG/0.8 ML SYRINGE SUB-Q ×2 (10:51→20:17)
--- NOTE | 2019-11-26 10:59 | PM.CNGS ---
Assessment and Plan Assessment and plan (1) Abdominal abscess: Status: Chronic Assessment and Plan: I have reviewed the CT, and there now appears to be an enlarging fluid collection that is communicating to the abdominal wall and skin. This appears to be another persistent abscess. I have recommended percutaneous drainage to adequately drain this fluid collection. Will continue antibiotics at this time as well. Overall this appears to be improving based on prior CTs and there does not appear to be much going on with the gallbladder fossa any longer. Will continue to follow along with patient while drain is in place. (2) Gallbladder abscess: Code(s): K81.0 - Acute cholecystitis Status: Acute (3) Afib: Qualifiers: Atrial fibrillation type: unspecified Qualified Code(s): I48.91 - Unspecified atrial fibrillation Code(s): I48.91 - Unspecified atrial fibrillation Status: Acute (4) COPD (chronic obstructive pulmonary disease): Qualifiers: COPD type: unspecified COPD Qualified Code(s): J44.9 - Chronic obstructive pulmonary disease, unspecified Code(s): J44.9 - Chronic obstructive pulmonary disease, unspecified Status: Chronic History of Present Illness Consult details Consult date: 11/26/19 Narrative: This is a 69-year-old man who returned to the hospital last night with complaints of drainage from an abdominal wound. He has been hospitalized off and on for the past 2 months for intra-abdominal abscess related to possible perforated gallbladder. He has had percutaneous drains placed previously and prior CTs showed improvement of some of the fluid collections. He has been at the retirement for the past several days, but then was noted to have purulence drainage coming from his previous drain site. He denies any abdominal pain or any fevers. He denies any nausea or vomiting. Review of Systems Review of Systems: All systems reviewed & are unremarkable except as noted in HPI and below Constitutional: Constitutional: Denies chills and Denies fever(s) Eyes: Eyes: Denies change in vision ENT: Denies hearing loss, Denies neck pain and Denies sore throat Cardiovascular: Cardiovascular: Denies chest pain and Denies dyspnea Respiratory: Respiratory: Denies cough, Denies dyspnea and Denies wheezing Gastrointestinal: Gastrointestinal: Reports as per HPI Genitourinary: Genitourinary: Denies hematuria and Denies dysuria Musculoskeletal: Musculoskeletal: Denies arthralgias, Denies joint swelling and Denies neck pain Allergic/Immunologic: Allergic/Immunologic: Denies wheezing PMFSH Past Medical History Medical History Acute cholecystitis 07/2019 treated with antibiotic therapy, no cholecystectomy due to being a poor surgical candidate. 10/08/2019 - returned to hospital with intra-abdominal abscess in the gallbladder fossa and extending around liver - thought to be related to gallbladder perforation. Treated with antibiotics and percutaneous drainage x 3. Alcohol abuse Anxiety Atrial fibrillation Not on long-term anticoagulation per Cardiology. BPH (benign prostatic hyperplasia) CHF (congestive heart failure) Echocardiogram on 10/20/19 showing EF 55-60% with variable contractility due to atrial fibrillation. Aortic valve sclerosis without hemodynamically significant stenosis by Doppler. Trace TR, moderate pulmonary hypertension. Small circumferential pericardial effusion. Chronic anemia COPD (chronic obstructive pulmonary disease) Essential hypertension GERD (gastroesophageal reflux disease) Histoplasmosis Retinal histoplasmosis and very poor vision History of BPH History of TIAs Hyperlipidemia Vitamin D deficiency Surgical History Surgical History History of bilateral cataract extraction History of vasectomy Male circumcision Famil
[2019-11-26] MEDS: THIAMINE HCL 100 MG TABLET PO (13:14)
[2019-11-26] MEDS: QUEtiapine FUMARATE 12.5 MG TABLET PO ×2 (13:14→20:18)
[2019-11-26] MEDS: ASPIRIN 325 MG ENTERIC TABLET PO (13:14)
[2019-11-26] MEDS: PANTOPRAZOLE SOD SESQUIHYDRATE 20 MG TAB PO (13:14)
[2019-11-26] MEDS: MULTIVITAMINS THERAPEUTIC TAB (*BKC) 1 TABLET PO (13:14)
[2019-11-26] MEDS: MAGNESIUM OXIDE 400 MG TABLET PO (13:14)
[2019-11-26] MEDS: FUROSEMIDE 40 MG TABLET PO (13:14)
[2019-11-26] MEDS: FOLIC ACID 1 MG TABLET PO (13:14)
[2019-11-26] MEDS: POTASSIUM CHLORIDE 10 MEQ TABLET.ER 40 MEQ PO (13:14)
[2019-11-26] MEDS: polyethylene glycoL 3350 17 GM POWD.PACK PO (13:15)
[2019-11-26] MEDS: SILVERGEL (ELTA) 45 ML 1 APPLIC TOPICAL (13:15)
[2019-11-26] MEDS: CHOLECALCIFEROL 1,000 UNITS TABLET 5000 UNITS PO (13:15)
[2019-11-26] MEDS: TIMOLOL MALEATE 0.5% OP SOLN 5 ML BOTTLE 1 DROP EACH EYE ×2 (13:15→20:18)
[2019-11-26] MEDS: ALPRAZolam 0.25 MG TABLET PO ×3 (13:33→20:17)
[2019-11-26] MEDS: dilTIAZem HCL CD 180 MG CAP.ER.24H PO (17:32)
[2019-11-27] VITALS (22 sets, daily range): BP systolic 88–123; BP diastolic 62–91; PULSE 68–97; RESP 12–18; TEMP 36.1–36.6; O2SAT 98–100
[2019-11-27 05:12] LABS: Hemoglobin 10.7 g/dL (14.0-18.0); Mean Corpuscular HGB Conc 33.4 g/dl (32-36); Mean Corpuscular Hemoglobin 31.7 pg (26-34); Mean Corpuscular Volume 94.7 fl (80-100); Mean Platelet Volume 9.6 fl (7.4-10.4); Platelet Count Result 185 k/mm3 (150-375); Red Blood Count 3.38 M/mm3 (4.6-6.20); Red Cell Distribution Width 16.1 % (11.5-14.5); White Blood Count 5.2 K/mm3 (4.5-10.0)
[2019-11-27] MEDS: metroNIDAZOLE 250MG/ISO 50 ML 250 MG/50 ML BAG 50 MG IVPB ×2 (05:19→12:05)
[2019-11-27 05:30] LABS: Anion Gap 5 mmol/L (8-16); Blood Urea Nitrogen 12 mg/dL (9-20); CRP 2.8 mg/dL (<1.0); Calcium 7.7 mg/dL (8.4-10.2); Carbon Dioxide 28 mmol/L (22-30); Chloride 101 mmol/L (98-107); Estimated CRCL calculation 107 ml/min; Estimated Glomerular Filt Rate > 60; Glucose 76 mg/dL (75-110); Magnesium 1.6 mg/dL (1.6-2.3); Potassium 3.1 mmol/L (3.4-5.0); Sodium 134 mmol/L (137-145)
[2019-11-27] MEDS: POTASSIUM CHLORIDE 10 MEQ TABLET.ER 40 MEQ PO (08:32)
[2019-11-27] MEDS: polyethylene glycoL 3350 17 GM POWD.PACK PO (08:32)
[2019-11-27] MEDS: METOPROLOL TARTRATE 50 MG TAB 100 MG PO ×2 (08:32→20:06)
[2019-11-27] MEDS: POTASSIUM CHLORIDE 20 MEQ TABLET 40 MEQ PO (08:32)
[2019-11-27] MEDS: ALPRAZolam 0.25 MG TABLET PO ×2 (08:32→12:06)
[2019-11-27] MEDS: CHOLECALCIFEROL 1,000 UNITS TABLET 5000 UNITS PO (08:33)
[2019-11-27] MEDS: FOLIC ACID 1 MG TABLET PO (08:33)
[2019-11-27] MEDS: MAGNESIUM OXIDE 400 MG TABLET PO (08:33)
[2019-11-27] MEDS: PANTOPRAZOLE SOD SESQUIHYDRATE 20 MG TAB PO (08:33)
[2019-11-27] MEDS: FUROSEMIDE 40 MG TABLET PO (08:33)
[2019-11-27] MEDS: QUEtiapine FUMARATE 12.5 MG TABLET PO ×2 (08:33→20:06)
[2019-11-27] MEDS: MULTIVITAMINS THERAPEUTIC TAB (*BKC) 1 TABLET PO (08:33)
[2019-11-27] MEDS: ASPIRIN 81 MG ENTERIC TABLET PO (08:33)
[2019-11-27] MEDS: TIMOLOL MALEATE 0.5% OP SOLN 5 ML BOTTLE 1 DROP EACH EYE ×2 (08:34→20:06)
[2019-11-27] MEDS: ENOXAPARIN 80 MG/0.8 ML SYRINGE SUB-Q ×2 (08:34→20:05)
[2019-11-27] MEDS: THIAMINE HCL 100 MG TABLET PO (08:34)
[2019-11-27] MEDS: SILVERGEL (ELTA) 45 ML 1 APPLIC TOPICAL (08:36)
--- NOTE | 2019-11-27 10:05 | PM.PNGS ---
Progress Note: A&P Assessment and Plan (1) Intra-abdominal abscess: Code(s): K65.1 - Peritoneal abscess Status: Acute Assessment and Plan: Doing well after percutaneous drain placed yesterday Cultures pending, but prior Urine and abscess cultures demonstrated E coli resistant to Levaquin, may need to adjust antibiotics based on this. Will plan to keep drain in place until minimal drainage noted (2) Gallbladder abscess: Code(s): K81.0 - Acute cholecystitis Status: Acute Subjective Subjective Date/Time Seen: 11/27/19 10:05 No abdominal pain. Tolerated drain placement yesterday. Exam GI: GI Palp: Yes Soft to palpation, No Tenderness to palpation present (GI) and No Guarding due to palpation present (GI) Auscultation: normal bowel sounds Other: Pigtail drain in place with minimal bloody purulent output. Objective Data Vital Signs Vital Signs: Vital Signs - 24 hr 11/26/19 12:25 11/26/19 12:43 11/26/19 13:31 Temperature 36.3 C L Pulse Rate 62 52 L 112 H Respiratory Rate 16 16 18 Blood Pressure 114/92 H 138/98 H Pulse Oximetry 94 100 11/26/19 13:43 11/26/19 14:00 11/26/19 14:05 Temperature 36.4 C Pulse Rate 93 90 Respiratory Rate 18 14 Blood Pressure 120/90 139/101 H Pulse Oximetry 97 11/26/19 16:00 11/26/19 19:59 11/26/19 20:00 Temperature Pulse Rate 95 95 96 Respiratory Rate 18 Blood Pressure Pulse Oximetry 11/26/19 20:07 11/26/19 20:17 11/26/19 20:31 Temperature 36.4 C Pulse Rate 96 96 97 Respiratory Rate 18 16 Blood Pressure 130/86 Pulse Oximetry 98 11/27/19 00:00 11/27/19 02:09 11/27/19 02:19 Temperature Pulse Rate 97 93 91 Respiratory Rate 18 18 Blood Pressure Pulse Oximetry 11/27/19 04:00 11/27/19 06:00 11/27/19 08:30 Temperature 36.4 C Pulse Rate 84 87 88 Respiratory Rate 12 18 Blood Pressure 123/91 H Pulse Oximetry 100 11/27/19 08:32 11/27/19 08:40 Temperature Pulse Rate 87 91 Respiratory Rate 18 Blood Pressure Pulse Oximetry Intake/Output Intake/Output: Intake & Output 11/24/19 11/25/19 11/26/19 11/27/19 23:59 23:59 23:59 23:59 Intake Total 150 1140 400 Output Total 2014 180 Balance 150 -875 220 Meds/Results Medications: Active Medications Generic Name Dose Route Start Last Admin Trade Name Freq PRN Reason Stop Dose Admin Acetaminophen 650 mg 11/25/19 18:04 Tylenol Tablet PO Q4H PRN Mild Pain (1-3) or Fever Acetaminophen 650 mg 11/26/19 01:28 Tylenol Tablet PO Q6H PRN Mild Pain (1-3) Or Fever Alprazolam 0.25 mg 11/26/19 09:00 11/27/19 08:32 Xanax PO 0.25 mg QID MONET Administration Aspirin 81 mg 11/27/19 09:00 11/27/19 08:33 Aspirin Ec PO 81 mg QAM MONET Administration Diltiazem HCl 180 mg 11/26/19 18:00 11/26/19 17:32 Cardizem Cd PO 180 mg QPM MONET Administration Diltiazem HCl 240 mg 11/26/19 09:00 11/27/19 08:36 Cardizem Cd PO 240 mg QAM MONET Administration Enoxaparin Sodium 80 mg 11/26/19 10:00 11/27/19 08:34 Lovenox SUB-Q 80 mg Q12HR MONET Administration Folic Acid 1 mg 11/26/19 09:00 11/27/19 08:33 Folic Acid PO 1 mg DAILY MONET Administration Furosemide 40 mg 11/26/19 09:00 11/27/19 08:33 Lasix Tablet PO 40 mg DAILY MONET Administration Levofloxacin/Dextrose 750 mg in 150 mls @ 100 mls/hr 11/26/19 17:00 11/26/19 19:02 Levaquin 750 Mg/D5w 150 Ml IVPB Infused Q24H MONET Infusion Metronidazole 250 mg in 50 mls @ 50 mls/hr 11/26/19 11:00 11/27/19 07:00 Flagyl 250 Mg/Iso Soln 50 Ml IVPB Infused Q6HR MONET Infusion Levalbuterol HCl 1.25 mg 11/26/19 02:00 11/27/19 08:30 Xopenex 1.25 Mg/0.5 Ml INHALATION 1.25 mg Q6HRT MONET Administration Magnesium Oxide 400 mg 11/26/19 09:00 11/27/19 08:33 Mag-Ox PO 400 mg QAM MONET Administration Metoprolol Tartrate 100 mg 11/26/19 09:00 11/27/19 08:32 Lopressor P
[2019-11-27] MEDS: SODIUM CHLORIDE 0.9% IV 1,000 ML 100 ML IV CONT ×2 (10:58→23:52)
--- NOTE | 2019-11-27 11:24 | PCNFU ---
Nutrition Follow-Up Complete: Increased protein needs r/t skin breakdown as evidence by stage 2 PU on lt buttocks Goal: Diet advancement with 50% intake of meals and supplements Progressing towards goal. We will continue current goal. Pt current nutrition is Heart Healthy. Nutrition recommendation: Agree Last recorded weight is 80 kg. Bowel Motility:+ BM reported 11/25 Labs Reviewed:Na 134,BUN 5, Hct 32.0,Hgb 10.7 Meds Noted:Vit D, Vit B1, MVI,Miralax,Levaquin,Lopressor, Lovenox Additional Notes: Nutrition follow up today. Oral intake fair about 50% of most meals, today for breakfast eggs and toast. Diet supplements of Timothy and Ensure Compact added BID for increased kcal and protein needs due to wounds. Monitoring: PO intake, wt, diet, skin every 3 days
--- NOTE | 2019-11-27 14:15 | PM.IMPN ---
Progress Note: A&P Assessment and Plan (1) Pulmonary embolism: Code(s): I26.99 - Other pulmonary embolism without acute cor pulmonale Status: Acute Assessment and Plan: Called by radiology about CT scan from last night that has RLL PE and possibly infarct. Other providers have not recommended anticoagulation because Thought to be a poor candidate for oral anticoagulation because of falls and alcohol abuse . He is in a NH and no obvious contraindication. Will start Lovenox and continue to assess. PT/OT to assess gait ability. Radiology to place drain today but Lovenox okay to give now. Check Doppler. Doppler positive for partial thrombosis of the bilateral profunda femoral veins. 11/27/19 14:15 patient is 69-year-old male with history of abdominal wall abscess and drains were placed on last to admission and symptom had improved and was discharged, patient return again is found to have a large abdominal wall abscess patient was seen by IR and drain was placed about 10 cc of bloody fluid was collected, patient is seen by surgery recommended to continue drained and monitor, patient is also found to pulmonary emboli and DVT, the has a very high risk of fall and bleed due to alcohol abuse, however he is currently in the nursing we have started the patient on Lovenox, will have a PT OT evaluate the patient, today patient blood pressure is soft his p.o. intake is poor will start the patient on IV fluid 100 cc/hour and monitor, patient was started on Levaquin from emergency depart will stop the medication and start the patient on imipenem, will follow-up on abscess culture and further recommendation to follow (2) Abdominal abscess: Status: Chronic Assessment and Plan: CT scan showing multiple rim enhancing abscesses. No evidence of symtomatic infectious process: no fever, chills, elevated WBC. CRP 3.3 butlower than in October. One is actively draining. GenSurg consulted. Levaquin started in ER. Will continue Levaquin. Can prolong QTc as can Seroquel so will check EKG. Add Flagyl since source probably from [place]. Plan for drain placement by IR. Follow up on blood cultures and wound cultures. EKG reviewed: QTc 319, AFib with rate 122. nonspecific ST and T wave changes in the high lateral leads(that are better now then prior EKG 11/13/19) (3) Atrial fibrillation: Code(s): I48.91 - Unspecified atrial fibrillation Status: Chronic Assessment and Plan: Patient chronic atrial fibrillation occasional RVR. Currently on diltiazem and metoprolol. No oral anticoagulation because of fall risk and alcohol abuse. resume home medications and monitor for now. May need adjustment depending on how well controlled he is. (4) CHF (congestive heart failure): Qualifiers: Heart failure chronicity: unspecified Heart failure type: unspecified Qualified Code(s): I50.9 - Heart failure, unspecified Code(s): I50.9 - Heart failure, unspecified Status: Chronic Assessment and Plan: Stable. Not in acute exacerbation. Patient is on Lasix which will continue. He is also on potassium replacement. Continue to monitor fluid balance. (5) COPD (chronic obstructive pulmonary disease): Qualifiers: COPD type: unspecified COPD Qualified Code(s): J44.9 - Chronic obstructive pulmonary disease, unspecified Code(s): J44.9 - Chronic obstructive pulmonary disease, unspecified Status: Chronic Assessment and Plan: Stable. No wheezing. Continue nebulizer treatments. (6) Essential hypertension: Code(s): I10 - Essential (primary) hypertension Status: Chronic Assessment and Plan: Patient's blood pressure was reviewed on 11/25 Blood pressure remains well controlled. Will continue current medications with diltiazem and metoprolol (7) Anxiety: Code(s): F41.9 - Anxiety disorder, unspecified Status: Chronic Asses
[2019-11-27] MEDS: ERTAPENEM 1 GM/NS 50 ML 1 GM/50 ML BAG IVPB (15:52)
[2019-11-27] MEDS: dilTIAZem HCL CD 180 MG CAP.ER.24H PO (17:10)
[2019-11-28] VITALS (19 sets, daily range): BP systolic 98–107; BP diastolic 57–69; PULSE 64–85; RESP 18; TEMP 36–36.1; O2SAT 96–100
[2019-11-28 05:29] LABS: Hematocrit 30.4 % (42.0-52.0); Mean Corpuscular HGB Conc 32.9 g/dl (32-36); Mean Corpuscular Hemoglobin 31.7 pg (26-34); Mean Corpuscular Volume 96.5 fl (80-100); Mean Platelet Volume 9.8 fl (7.4-10.4); Platelet Count Result 181 k/mm3 (150-375); Red Blood Count 3.15 M/mm3 (4.6-6.20); Red Cell Distribution Width 16.6 % (11.5-14.5); White Blood Count 5.7 K/mm3 (4.5-10.0)
[2019-11-28 05:42] LABS: Alanine Aminotransferase 13 U/L (4-50); Alkaline Phosphatase 132 U/L (38-126); Anion Gap 3 mmol/L (8-16); Aspartate Amino Transferase 18 U/L (17-59); Bilirubin,Total 0.2 mg/dL (0.2-1.3); Blood Urea Nitrogen 15 mg/dL (9-20); Calcium 7.6 mg/dL (8.4-10.2); Carbon Dioxide 27 mmol/L (22-30); Chloride 104 mmol/L (98-107); Estimated CRCL calculation 93 ml/min; Estimated Glomerular Filt Rate > 60; Glucose 97 mg/dL (75-110); Magnesium 1.6 mg/dL (1.6-2.3); Potassium 3.3 mmol/L (3.4-5.0); Sodium 134 mmol/L (137-145)
[2019-11-28] MEDS: METOPROLOL TARTRATE 50 MG TAB 100 MG PO ×2 (08:41→20:36)
[2019-11-28] MEDS: CHOLECALCIFEROL 1,000 UNITS TABLET 5000 UNITS PO (08:42)
[2019-11-28] MEDS: ASPIRIN 81 MG ENTERIC TABLET PO (08:42)
[2019-11-28] MEDS: PANTOPRAZOLE SOD SESQUIHYDRATE 20 MG TAB PO (08:43)
[2019-11-28] MEDS: THIAMINE HCL 100 MG TABLET PO (08:43)
[2019-11-28] MEDS: POTASSIUM CHLORIDE 10 MEQ TABLET.ER 40 MEQ PO (08:43)
[2019-11-28] MEDS: FUROSEMIDE 40 MG TABLET PO (08:43)
[2019-11-28] MEDS: MULTIVITAMINS THERAPEUTIC TAB (*BKC) 1 TABLET PO (08:43)
[2019-11-28] MEDS: FOLIC ACID 1 MG TABLET PO (08:44)
[2019-11-28] MEDS: ENOXAPARIN 80 MG/0.8 ML SYRINGE SUB-Q ×2 (08:44→20:34)
[2019-11-28] MEDS: polyethylene glycoL 3350 17 GM POWD.PACK PO (08:44)
[2019-11-28] MEDS: QUEtiapine FUMARATE 12.5 MG TABLET PO ×2 (08:44→20:37)
[2019-11-28] MEDS: TIMOLOL MALEATE 0.5% OP SOLN 5 ML BOTTLE 1 DROP EACH EYE ×2 (08:44→20:37)
[2019-11-28] MEDS: MAGNESIUM OXIDE 400 MG TABLET PO (08:45)
--- NOTE | 2019-11-28 09:18 | PM.PNGS ---
Progress Note: A&P Assessment and Plan (1) Intra-abdominal abscess: Code(s): K65.1 - Peritoneal abscess Status: Acute Assessment and Plan: s/p perc drain, cont abx, zabrina diet, exam benign Subjective Subjective Date/Time Seen: 11/28/19 09:18 no acute issues, reports no abd pain this am Review of Systems Constitutional: Constitutional: Reports body ache(s), Denies chills, Reports fatigue, Reports lethargy and Reports weakness Cardiovascular: Cardiovascular: Denies chest pain Respiratory: Respiratory: Denies no additional respiratory complaints and Denies dyspnea Gastrointestinal: Gastrointestinal: Reports abdominal pain, Denies bloating, Denies constipation, Denies diarrhea, Denies nausea and Denies vomiting Exam Const: General: no acute distress Resp: Auscultation: clear to auscultation bilaterally Cardio: Rate: regular rate Rhythm: regular rhythm GI: Other: soft, sl dist, stevo TTP, drain c s/s output Objective Data Vital Signs Vital Signs: Vital Signs - 24 hr 11/27/19 09:50 11/27/19 10:00 11/27/19 12:00 Temperature Pulse Rate 87 78 76 Respiratory Rate Blood Pressure 88/63 L 89/62 L Pulse Oximetry 11/27/19 13:05 11/27/19 13:10 11/27/19 13:15 Temperature Pulse Rate 86 88 Respiratory Rate 18 18 Blood Pressure 104/72 Pulse Oximetry 11/27/19 14:00 11/27/19 16:00 11/27/19 20:00 Temperature 36.6 C Pulse Rate 70 68 89 Respiratory Rate 18 18 Blood Pressure 100/69 Pulse Oximetry 99 99 11/27/19 20:06 11/27/19 20:15 11/27/19 20:24 Temperature Pulse Rate 82 89 89 Respiratory Rate 18 18 Blood Pressure Pulse Oximetry 11/27/19 21:30 11/28/19 00:00 11/28/19 01:00 Temperature 36.1 C L Pulse Rate 78 71 76 Respiratory Rate 18 18 Blood Pressure 94/62 L Pulse Oximetry 98 11/28/19 01:08 11/28/19 04:00 11/28/19 06:00 Temperature 36.1 C L Pulse Rate 76 71 79 Respiratory Rate 18 18 Blood Pressure 107/69 Pulse Oximetry 99 11/28/19 08:29 11/28/19 08:37 11/28/19 08:41 Temperature Pulse Rate 72 76 72 Respiratory Rate 18 18 Blood Pressure Pulse Oximetry Intake/Output Intake/Output: Intake & Output 11/25/19 11/26/19 11/27/19 11/28/19 23:59 23:59 23:59 23:59 Intake Total 150 1140 2640 100 Output Total 2014 562 465 Balance 150 -285 6690 -036 Meds/Results Medications: Active Medications Generic Name Dose Route Start Last Admin Trade Name Freq PRN Reason Stop Dose Admin Acetaminophen 650 mg 11/25/19 18:04 Tylenol Tablet PO Q4H PRN Mild Pain (1-3) or Fever Acetaminophen 650 mg 11/26/19 01:28 Tylenol Tablet PO Q6H PRN Mild Pain (1-3) Or Fever Alprazolam 0.25 mg 11/27/19 15:24 Xanax PO QID PRN Anxiety Aspirin 81 mg 11/27/19 09:00 11/28/19 08:42 Aspirin Ec PO 81 mg QAM MONET Administration Diltiazem HCl 180 mg 11/26/19 18:00 11/27/19 17:10 Cardizem Cd PO 180 mg QPM MONET Administration Diltiazem HCl 240 mg 11/26/19 09:00 11/28/19 08:44 Cardizem Cd PO 240 mg QAM MONET Administration Enoxaparin Sodium 80 mg 11/26/19 10:00 11/28/19 08:44 Lovenox SUB-Q 80 mg Q12HR MONET Administration Folic Acid 1 mg 11/26/19 09:00 11/28/19 08:44 Folic Acid PO 1 mg DAILY MONET Administration Furosemide 40 mg 11/26/19 09:00 11/28/19 08:43 Lasix Tablet PO 40 mg DAILY MONET Administration Sodium Chloride 1,000 mls @ 100 mls/hr 11/27/19 10:25 11/27/19 23:52 Normal Saline Iv IV CONT 100 mls/hr .Q10H MONET Administration Ertapenem 1 gm in 50 mls @ 100 mls/hr 11/27/19 14:00 11/27/19 16:22 Invanz 1 Gm/Ns 50 Ml IVPB Infused Q24H MONET Infusion Imipenem/Cilastatin Sodium 500 mg in 100 mls @ 300 mls/hr 11/27/19 15:00 11/28/19 08:40 Primaxin 500 Mg/D5w 100 Ml IVPB 300 mls/hr Q6H MONET Administration Levalbuterol HCl 1.25 mg 11/26/19 02:00 11/28/19 08:28 Xopenex 1.25 Mg/0.5 Ml
[2019-11-28] MEDS: SODIUM CHLORIDE 0.9% IV 1,000 ML 100 ML IV CONT ×2 (10:48→20:33)
[2019-11-28] MEDS: SILVERGEL (ELTA) 45 ML 1 APPLIC TOPICAL (10:49)
[2019-11-28] MEDS: ERTAPENEM 1 GM/NS 50 ML 1 GM/50 ML BAG IVPB (13:00)
--- NOTE | 2019-11-28 13:48 | PM.IMPN ---
Progress Note: A&P Assessment and Plan (1) Pulmonary embolism: Code(s): I26.99 - Other pulmonary embolism without acute cor pulmonale Status: Acute Assessment and Plan: Called by radiology about CT scan from last night that has RLL PE and possibly infarct. Other providers have not recommended anticoagulation because Thought to be a poor candidate for oral anticoagulation because of falls and alcohol abuse . He is in a NH and no obvious contraindication. Will start Lovenox and continue to assess. PT/OT to assess gait ability. Radiology to place drain today but Lovenox okay to give now. Check Doppler. Doppler positive for partial thrombosis of the bilateral profunda femoral veins. 11/28/19 13:48 patient is 69-year-old male with history of abdominal wall abscess and drains were placed on last to admission and symptom had improved and was discharged, patient return again is found to have a large abdominal wall abscess patient was seen by IR and drain was placed about 10 cc of bloody fluid was collected, patient is seen by surgery recommended to continue drained and monitor, patient is also found to pulmonary emboli and DVT, the has a very high risk of fall and bleed due to alcohol abuse, however he is currently in the nursing we have started the patient on Lovenox, will have a PT OT evaluate the patient, today patient blood pressure is soft his p.o. intake is poor will start the patient on IV fluid 100 cc/hour and monitor, patient blood culture and urine culture is growing E coli with ESBL emergency department had started the patient on Levaquin and is resistant, started the patient imipenem will continue to monitor, patient will need IV antibiotics for 14 days 2/days, will repeat CT scan on Saturday to reassess abscess and drainage, patient is seen by surgery team, may discharge the patient on Saturday if they can continue IV antibiotics at the alf (2) Abdominal abscess: Status: Chronic Assessment and Plan: CT scan showing multiple rim enhancing abscesses. No evidence of symtomatic infectious process: no fever, chills, elevated WBC. CRP 3.3 butlower than in October. One is actively draining. GenSurg consulted. Levaquin started in ER. Will continue Levaquin. Can prolong QTc as can Seroquel so will check EKG. Add Flagyl since source probably from [place]. Plan for drain placement by IR. Follow up on blood cultures and wound cultures. EKG reviewed: QTc 319, AFib with rate 122. nonspecific ST and T wave changes in the high lateral leads(that are better now then prior EKG 11/13/19) (3) Atrial fibrillation: Code(s): I48.91 - Unspecified atrial fibrillation Status: Chronic Assessment and Plan: Patient chronic atrial fibrillation occasional RVR. Currently on diltiazem and metoprolol. No oral anticoagulation because of fall risk and alcohol abuse. resume home medications and monitor for now. May need adjustment depending on how well controlled he is. (4) CHF (congestive heart failure): Qualifiers: Heart failure chronicity: unspecified Heart failure type: unspecified Qualified Code(s): I50.9 - Heart failure, unspecified Code(s): I50.9 - Heart failure, unspecified Status: Chronic Assessment and Plan: Stable. Not in acute exacerbation. Patient is on Lasix which will continue. He is also on potassium replacement. Continue to monitor fluid balance. (5) COPD (chronic obstructive pulmonary disease): Qualifiers: COPD type: unspecified COPD Qualified Code(s): J44.9 - Chronic obstructive pulmonary disease, unspecified Code(s): J44.9 - Chronic obstructive pulmonary disease, unspecified Status: Chronic Assessment and Plan: Stable. No wheezing. Continue nebulizer treatments. (6) Essential hypertension: Code(s): I10 - Essential (primary) hypertension Status: Chronic Assessment and Plan: P
[2019-11-28] MEDS: dilTIAZem HCL CD 180 MG CAP.ER.24H PO (17:12)
[2019-11-29] VITALS (19 sets, daily range): BP systolic 100–120; BP diastolic 67–72; PULSE 66–88; RESP 12–18; TEMP 36.1–36.4; O2SAT 96–100
[2019-11-29 06:03] LABS: Hematocrit 31.1 % (42.0-52.0); Hemoglobin 10.1 g/dL (14.0-18.0); Mean Corpuscular HGB Conc 32.5 g/dl (32-36); Mean Corpuscular Hemoglobin 31.4 pg (26-34); Mean Corpuscular Volume 96.6 fl (80-100); Platelet Count Result 193 k/mm3 (150-375); Red Blood Count 3.22 M/mm3 (4.6-6.20); Red Cell Distribution Width 16.6 % (11.5-14.5); White Blood Count 5.4 K/mm3 (4.5-10.0)
[2019-11-29 06:17] LABS: Albumin Level 2.1 g/dL (3.5-5.1); Alkaline Phosphatase 141 U/L (38-126); Anion Gap 2 mmol/L (8-16); Aspartate Amino Transferase 26 U/L (17-59); Bilirubin,Total 0.2 mg/dL (0.2-1.3); Blood Urea Nitrogen 11 mg/dL (9-20); Calcium 7.6 mg/dL (8.4-10.2); Carbon Dioxide 28 mmol/L (22-30); Chloride 105 mmol/L (98-107); Estimated CRCL calculation 107 ml/min; Estimated Glomerular Filt Rate > 60; Glucose 93 mg/dL (75-110); Magnesium 1.5 mg/dL (1.6-2.3); Sodium 135 mmol/L (137-145)
[2019-11-29 06:23] LABS: Alanine Aminotransferase 14 U/L (4-50)
[2019-11-29] MEDS: SODIUM CHLORIDE 0.9% IV 1,000 ML 100 ML IV CONT (07:02)
[2019-11-29] MEDS: ENOXAPARIN 80 MG/0.8 ML SYRINGE SUB-Q ×2 (08:07→21:23)
[2019-11-29] MEDS: CHOLECALCIFEROL 1,000 UNITS TABLET 5000 UNITS PO (08:07)
[2019-11-29] MEDS: MAGNESIUM OXIDE 400 MG TABLET PO (08:08)
[2019-11-29] MEDS: TIMOLOL MALEATE 0.5% OP SOLN 5 ML BOTTLE 1 DROP EACH EYE ×2 (08:09→21:23)
[2019-11-29] MEDS: POTASSIUM CHLORIDE 10 MEQ TABLET.ER 40 MEQ PO (08:09)
[2019-11-29] MEDS: FUROSEMIDE 40 MG TABLET PO (08:09)
[2019-11-29] MEDS: MULTIVITAMINS THERAPEUTIC TAB (*BKC) 1 TABLET PO (08:09)
[2019-11-29] MEDS: PANTOPRAZOLE SOD SESQUIHYDRATE 20 MG TAB PO (08:09)
[2019-11-29] MEDS: FOLIC ACID 1 MG TABLET PO (08:09)
[2019-11-29] MEDS: polyethylene glycoL 3350 17 GM POWD.PACK PO (08:09)
[2019-11-29] MEDS: THIAMINE HCL 100 MG TABLET PO (08:09)
[2019-11-29] MEDS: ASPIRIN 81 MG ENTERIC TABLET PO (08:09)
[2019-11-29] MEDS: QUEtiapine FUMARATE 12.5 MG TABLET PO ×2 (08:09→21:22)
[2019-11-29] MEDS: METOPROLOL TARTRATE 50 MG TAB 100 MG PO ×2 (08:10→21:22)
--- NOTE | 2019-11-29 08:41 | PM.PNGS ---
Progress Note: A&P Assessment and Plan (1) Intra-abdominal abscess: Code(s): K65.1 - Peritoneal abscess Status: Acute Assessment and Plan: cont drain, abx, likely reimage next wk Subjective Subjective Date/Time Seen: 11/29/19 08:41 no acute issues, resting comfortably, no c/o Review of Systems Constitutional: Constitutional: Denies chills, Reports fatigue, Reports lethargy and Reports weakness Cardiovascular: Cardiovascular: Denies chest pain Respiratory: Respiratory: Denies dyspnea and Reports dyspnea on exertion Gastrointestinal: Gastrointestinal: Denies abdominal pain, Denies bloating, Denies constipation, Denies diarrhea, Denies nausea and Denies vomiting Exam Const: General: comfortable and no acute distress Resp: Auscultation: clear to auscultation bilaterally and diminished lung sounds Cardio: Rate: regular rate Rhythm: regular rhythm GI: Other: S, sl dist, NT, drain c serous output Objective Data Vital Signs Vital Signs: Vital Signs - 24 hr 11/28/19 12:00 11/28/19 14:00 11/28/19 15:06 Temperature 36.1 C L Pulse Rate 64 71 68 Respiratory Rate 18 18 Blood Pressure 98/57 L Pulse Oximetry 100 11/28/19 15:16 11/28/19 16:00 11/28/19 20:00 Temperature Pulse Rate 72 69 85 Respiratory Rate 18 Blood Pressure Pulse Oximetry 11/28/19 20:36 11/28/19 20:45 11/28/19 20:50 Temperature Pulse Rate 85 69 69 Respiratory Rate 18 18 Blood Pressure Pulse Oximetry 11/28/19 22:00 11/29/19 00:00 11/29/19 02:26 Temperature 36.0 C L Pulse Rate 78 75 75 Respiratory Rate 18 18 Blood Pressure 102/68 Pulse Oximetry 96 11/29/19 02:35 11/29/19 04:00 11/29/19 06:00 Temperature 36.2 C L Pulse Rate 75 73 72 Respiratory Rate 18 18 Blood Pressure 120/72 Pulse Oximetry 96 11/29/19 08:10 11/29/19 08:12 11/29/19 08:21 Temperature Pulse Rate 82 84 88 Respiratory Rate 18 18 Blood Pressure Pulse Oximetry Intake/Output Intake/Output: Intake & Output 11/26/19 11/27/19 11/28/19 11/29/19 23:59 23:59 23:59 23:59 Intake Total 1140 2640 3150 1200 Output Total 2014 830 1815 390 Balance -875 1810 1335 810 Meds/Results Medications: Active Medications Generic Name Dose Route Start Last Admin Trade Name Freq PRN Reason Stop Dose Admin Acetaminophen 650 mg 11/25/19 18:04 Tylenol Tablet PO Q4H PRN Mild Pain (1-3) or Fever Acetaminophen 650 mg 11/26/19 01:28 Tylenol Tablet PO Q6H PRN Mild Pain (1-3) Or Fever Alprazolam 0.25 mg 11/27/19 15:24 Xanax PO QID PRN Anxiety Aspirin 81 mg 11/27/19 09:00 11/29/19 08:09 Aspirin Ec PO 81 mg QAM MONET Administration Diltiazem HCl 180 mg 11/26/19 18:00 11/28/19 17:12 Cardizem Cd PO 180 mg QPM MONET Administration Diltiazem HCl 240 mg 11/26/19 09:00 11/29/19 08:09 Cardizem Cd PO 240 mg QAM MONET Administration Enoxaparin Sodium 80 mg 11/26/19 10:00 11/29/19 08:07 Lovenox SUB-Q 80 mg Q12HR MONET Administration Folic Acid 1 mg 11/26/19 09:00 11/29/19 08:09 Folic Acid PO 1 mg DAILY MONET Administration Furosemide 40 mg 11/26/19 09:00 11/29/19 08:09 Lasix Tablet PO 40 mg DAILY MONET Administration Sodium Chloride 1,000 mls @ 100 mls/hr 11/27/19 10:25 11/29/19 07:02 Normal Saline Iv IV CONT 100 mls/hr .Q10H MONET Administration Ertapenem 1 gm in 50 mls @ 100 mls/hr 11/27/19 14:00 11/28/19 13:31 Invanz 1 Gm/Ns 50 Ml IVPB Infused Q24H MONET Infusion Imipenem/Cilastatin Sodium 500 mg in 100 mls @ 300 mls/hr 11/27/19 15:00 11/29/19 08:17 Primaxin 500 Mg/D5w 100 Ml IVPB 300 mls/hr Q6H MONET Administration Levalbuterol HCl 1.25 mg 11/26/19 02:00 11/29/19 08:12 Xopenex 1.25 Mg/0.5 Ml INHALATION 1.25 mg Q6HRT MONET Administration Magnesium Oxide 400 mg 11/26/19 09:00 11/29/19 08:08 Mag-Ox PO 400 mg QAM MONET Administration Metoprolol
[2019-11-29] MEDS: MAGNESIUM SULF 2 GM/WATER 50ML 2 GM/50 ML BAG IVPB (10:11)
[2019-11-29] MEDS: POTASSIUM CHLORIDE 20 MEQ TABLET 40 MEQ PO (10:12)
[2019-11-29] MEDS: SILVERGEL (ELTA) 45 ML 1 APPLIC TOPICAL (10:13)
[2019-11-29] MEDS: NICOTINE (*PBKC) 21 MG PATCH 1 PATCH TRANSDERM (15:06)
--- NOTE | 2019-11-29 15:21 | PM.IMPN ---
Progress Note: A&P Assessment and Plan (1) Pulmonary embolism: Code(s): I26.99 - Other pulmonary embolism without acute cor pulmonale Status: Acute Assessment and Plan: Called by radiology about CT scan from last night that has RLL PE and possibly infarct. Other providers have not recommended anticoagulation because Thought to be a poor candidate for oral anticoagulation because of falls and alcohol abuse . He is in a NH and no obvious contraindication. Will start Lovenox and continue to assess. PT/OT to assess gait ability. Radiology to place drain today but Lovenox okay to give now. Check Doppler. Doppler positive for partial thrombosis of the bilateral profunda femoral veins. 11/29/19 15:21 patient is 69-year-old male with history of abdominal wall abscess and drains were placed on last to admission and symptom had improved and was discharged, patient return again is found to have a large abdominal wall abscess patient was seen by IR and drain was placed about 10 cc of bloody fluid was collected, patient is seen by surgery recommended to continue drained and monitor, patient is also found to pulmonary emboli and DVT, the has a very high risk of fall and bleed due to alcohol abuse, however he is currently in the nursing we have started the patient on Lovenox, will have a PT OT evaluate the patient, today patient blood pressure is soft his p.o. intake is poor will start the patient on IV fluid 100 cc/hour and monitor, patient blood culture and urine culture is growing E coli with ESBL emergency department had started the patient on Levaquin and is resistant, started the patient imipenem will continue to monitor, will continue IV antibiotics for 14 days 2/days, will repeat CT scan on Saturday to reassess abscess and drainage, patient is seen by surgery team, may discharge the patient on Saturday if they can continue IV antibiotics at the [place] [facility], patient is present today and answered all her questions will start the patient on nicotine patch. (2) Abdominal abscess: Status: Chronic Assessment and Plan: CT scan showing multiple rim enhancing abscesses. No evidence of symtomatic infectious process: no fever, chills, elevated WBC. CRP 3.3 butlower than in October. One is actively draining. GenSurg consulted. Levaquin started in ER. Will continue Levaquin. Can prolong QTc as can Seroquel so will check EKG. Add Flagyl since source probably from [place]. Plan for drain placement by IR. Follow up on blood cultures and wound cultures. EKG reviewed: QTc 319, AFib with rate 122. nonspecific ST and T wave changes in the high lateral leads(that are better now then prior EKG 11/13/19) (3) Atrial fibrillation: Code(s): I48.91 - Unspecified atrial fibrillation Status: Chronic Assessment and Plan: Patient chronic atrial fibrillation occasional RVR. Currently on diltiazem and metoprolol. No oral anticoagulation because of fall risk and alcohol abuse. resume home medications and monitor for now. May need adjustment depending on how well controlled he is. (4) CHF (congestive heart failure): Qualifiers: Heart failure chronicity: unspecified Heart failure type: unspecified Qualified Code(s): I50.9 - Heart failure, unspecified Code(s): I50.9 - Heart failure, unspecified Status: Chronic Assessment and Plan: Stable. Not in acute exacerbation. Patient is on Lasix which will continue. He is also on potassium replacement. Continue to monitor fluid balance. (5) COPD (chronic obstructive pulmonary disease): Qualifiers: COPD type: unspecified COPD Qualified Code(s): J44.9 - Chronic obstructive pulmonary disease, unspecified Code(s): J44.9 - Chronic obstructive pulmonary disease, unspecified Status: Chronic Assessment and Plan: Stable. No wheezing. Continue nebulizer treatments. (6) Essential hypertension: C
[2019-11-29] MEDS: FUROSEMIDE INJ 40 MG/4 ML VIAL 20 MG IV PUSH (17:27)
[2019-11-29] MEDS: dilTIAZem HCL CD 180 MG CAP.ER.24H PO (17:28)
[2019-11-30] VITALS (19 sets, daily range): BP systolic 97–122; BP diastolic 71–87; PULSE 68–91; RESP 12–20; TEMP 36.3–36.4; O2SAT 97–99
[2019-11-30 05:46] LABS: Hematocrit 33.7 % (42.0-52.0); Mean Corpuscular HGB Conc 32.6 g/dl (32-36); Mean Corpuscular Hemoglobin 31.3 pg (26-34); Mean Corpuscular Volume 95.7 fl (80-100); Mean Platelet Volume 9.7 fl (7.4-10.4); Platelet Count Result 183 k/mm3 (150-375); Red Blood Count 3.52 M/mm3 (4.6-6.20); Red Cell Distribution Width 16.5 % (11.5-14.5); White Blood Count 5.8 K/mm3 (4.5-10.0)
[2019-11-30 06:01] LABS: Alanine Aminotransferase 17 U/L (4-50); Albumin Level 2.2 g/dL (3.5-5.1); Alkaline Phosphatase 144 U/L (38-126); Anion Gap 3 mmol/L (8-16); Aspartate Amino Transferase 33 U/L (17-59); Bilirubin,Total < 0.1 mg/dL (0.2-1.3); Blood Urea Nitrogen 10 mg/dL (9-20); Calcium 7.8 mg/dL (8.4-10.2); Carbon Dioxide 28 mmol/L (22-30); Chloride 105 mmol/L (98-107); Estimated CRCL calculation 126 ml/min; Estimated Glomerular Filt Rate > 60; Glucose 92 mg/dL (75-110); Magnesium 1.9 mg/dL (1.6-2.3); Potassium 3.3 mmol/L (3.4-5.0); Sodium 136 mmol/L (137-145)
[2019-11-30] MEDS: TIMOLOL MALEATE 0.5% OP SOLN 5 ML BOTTLE 1 DROP EACH EYE ×2 (08:04→21:16)
[2019-11-30] MEDS: METOPROLOL TARTRATE 50 MG TAB 100 MG PO ×2 (08:04→21:16)
[2019-11-30] MEDS: QUEtiapine FUMARATE 12.5 MG TABLET PO ×2 (08:04→21:16)
[2019-11-30] MEDS: polyethylene glycoL 3350 17 GM POWD.PACK PO (08:04)
[2019-11-30] MEDS: FOLIC ACID 1 MG TABLET PO (08:05)
[2019-11-30] MEDS: FUROSEMIDE 40 MG TABLET PO (08:05)
[2019-11-30] MEDS: ENOXAPARIN 80 MG/0.8 ML SYRINGE SUB-Q ×2 (08:05→21:15)
[2019-11-30] MEDS: PANTOPRAZOLE SOD SESQUIHYDRATE 20 MG TAB PO (08:05)
[2019-11-30] MEDS: CHOLECALCIFEROL 1,000 UNITS TABLET 5000 UNITS PO (08:05)
[2019-11-30] MEDS: MAGNESIUM OXIDE 400 MG TABLET PO (08:05)
[2019-11-30] MEDS: MULTIVITAMINS THERAPEUTIC TAB (*BKC) 1 TABLET PO (08:06)
[2019-11-30] MEDS: ASPIRIN 81 MG ENTERIC TABLET PO (08:06)
[2019-11-30] MEDS: THIAMINE HCL 100 MG TABLET PO (08:06)
[2019-11-30] MEDS: NICOTINE (*PBKC) 21 MG PATCH 1 PATCH TRANSDERM (08:07)
[2019-11-30] MEDS: POTASSIUM CHLORIDE 10 MEQ TABLET.ER 40 MEQ PO (08:07)
[2019-11-30] MEDS: SILVERGEL (ELTA) 45 ML 1 APPLIC TOPICAL (08:13)
--- NOTE | 2019-11-30 10:35 | PCNFU ---
Nutrition Follow-Up Complete: Increased protein needs r/t skin breakdown as evidence by stage 2 PU on lt buttocks Goal: Diet advancement with 50% intake of meals and supplements Patient is progressing towards goal with 44% average meal consumption and 50% consumption of supplements. Will continue with current goal Pt current nutrition is Heart Healthy. Nutrition recommendation: Agree with current recommendations Last recorded weight is 80 kg. Bowel Motility: 11/29/19 last bowel movement reported Labs Reviewed: Hgb (11) Hct (33.7) Alb (2.2) Na (136) K (3.3) Cr (0.5) Meds Noted: Lovenox, Folic Acid, Lasix, Levaquin, Lopressor, Miralax, Vitamin B1, Vitamin D, Multivitamin, KCL tablet, Xantax, Magnesium Oxide Additional Notes: Patient reports good appetite and likes taste of food. Enjoys Ensure clear and wants to continue them. No diet related concerns reported. PO intake, wt, diet, skin every 5 days
[2019-11-30] MEDS: POTASSIUM CHLORIDE 20 MEQ TABLET 40 MEQ PO (11:36)
--- NOTE | 2019-11-30 11:42 | PCNSR ---
On 11/30/19, the student, Gregg Rogers, provided care and completed [employer] documentation on this patient. I have reviewed the student's documentation and agree with the findings.
--- NOTE | 2019-11-30 14:35 | PM.PNGS ---
Progress Note: A&P Assessment and Plan (1) Intra-abdominal abscess: Code(s): K65.1 - Peritoneal abscess Status: Acute Assessment and Plan: Repeat CT today looks improved. Drain output still too high to remove yet. Would like it to be 20mL or less per day for several days. On Primaxin since 11/26. Recommend another 4-7 days of IV abx. (2) Gallbladder abscess: Code(s): K81.0 - Acute cholecystitis Status: Acute (3) Pulmonary embolism: Code(s): I26.99 - Other pulmonary embolism without acute cor pulmonale Status: Acute Subjective Subjective Date/Time Seen: 11/30/19 14:35 Doing well. No c/o abdominal pain. Had repeat CT done this AM. Exam GI: Inspection: non-distended GI Palp: No abdominal tenderness, Yes Soft to palpation and No Tenderness to palpation present (GI) Other: Pigtail drain with bloody purulent output Objective Data Vital Signs Vital Signs: Vital Signs - 24 hr 11/29/19 14:53 11/29/19 15:01 11/29/19 16:00 Temperature Pulse Rate 72 76 73 Respiratory Rate 16 16 Blood Pressure Pulse Oximetry 11/29/19 20:00 11/29/19 20:26 11/29/19 20:31 Temperature Pulse Rate 81 80 84 Respiratory Rate 16 16 Blood Pressure Pulse Oximetry 11/29/19 21:22 11/29/19 22:00 11/30/19 00:00 Temperature 36.4 C Pulse Rate 87 87 68 Respiratory Rate 12 Blood Pressure 108/67 Pulse Oximetry 100 11/30/19 01:44 11/30/19 01:49 11/30/19 04:00 Temperature Pulse Rate 78 80 80 Respiratory Rate 16 16 Blood Pressure Pulse Oximetry 11/30/19 06:00 11/30/19 08:00 11/30/19 08:04 Temperature 36.4 C Pulse Rate 84 84 81 Respiratory Rate 12 Blood Pressure 122/87 Pulse Oximetry 99 11/30/19 09:09 11/30/19 09:15 11/30/19 12:00 Temperature Pulse Rate 72 75 84 Respiratory Rate 18 18 Blood Pressure Pulse Oximetry 11/30/19 13:32 Temperature 36.3 C L Pulse Rate 72 Respiratory Rate 20 Blood Pressure 97/71 L Pulse Oximetry 97 Intake/Output Intake/Output: Intake & Output 11/27/19 11/28/19 11/29/19 11/30/19 23:59 23:59 23:59 23:59 Intake Total 2640 3150 2867 790 Output Total 830 1815 2540 1700 Balance 1810 1335 327 -910 Meds/Results Medications: Active Medications Generic Name Dose Route Start Last Admin Trade Name Freq PRN Reason Stop Dose Admin Acetaminophen 650 mg 11/25/19 18:04 Tylenol Tablet PO Q4H PRN Mild Pain (1-3) or Fever Acetaminophen 650 mg 11/26/19 01:28 Tylenol Tablet PO Q6H PRN Mild Pain (1-3) Or Fever Alprazolam 0.25 mg 11/27/19 15:24 Xanax PO QID PRN Anxiety Aspirin 81 mg 11/27/19 09:00 11/30/19 08:06 Aspirin Ec PO 81 mg QAM MONET Administration Diltiazem HCl 180 mg 11/26/19 18:00 11/29/19 17:28 Cardizem Cd PO 180 mg QPM MONET Administration Diltiazem HCl 240 mg 11/26/19 09:00 11/30/19 08:05 Cardizem Cd PO 240 mg QAM MONET Administration Enoxaparin Sodium 80 mg 11/26/19 10:00 11/30/19 08:05 Lovenox SUB-Q 80 mg Q12HR MONET Administration Folic Acid 1 mg 11/26/19 09:00 11/30/19 08:05 Folic Acid PO 1 mg DAILY MONET Administration Furosemide 40 mg 11/26/19 09:00 11/30/19 08:05 Lasix Tablet PO 40 mg DAILY MONET Administration Imipenem/Cilastatin Sodium 500 mg in 100 mls @ 300 mls/hr 11/27/19 15:00 11/30/19 08:34 Primaxin 500 Mg/D5w 100 Ml IVPB Infused Q6H MONET Infusion Levalbuterol HCl 1.25 mg 11/26/19 02:00 11/30/19 09:07 Xopenex 1.25 Mg/0.5 Ml INHALATION 1.25 mg Q6HRT MONET Administration Magnesium Oxide 400 mg 11/26/19 09:00 11/30/19 08:05 Mag-Ox PO 400 mg QAM MONET Administration Metoprolol Tartrate 100 mg 11/26/19 09:00 11/30/19 08:04 Lopressor PO 100 mg Q12HR MONET Administration Multivitamins Therapeutic 1 tablet 11/26/19 09:00 11/30/19 08:06 Multivitamins Therapeutic(*Bkc PO 1 tablet DAILY MONET Administration P
--- NOTE | 2019-11-30 16:08 | PM.IMPN ---
Progress Note: A&P Assessment and Plan (1) Pulmonary embolism: Code(s): I26.99 - Other pulmonary embolism without acute cor pulmonale Status: Acute Assessment and Plan: Called by radiology about CT scan from last night that has RLL PE and possibly infarct. Other providers have not recommended anticoagulation because Thought to be a poor candidate for oral anticoagulation because of falls and alcohol abuse . He is in a NH and no obvious contraindication. Will start Lovenox and continue to assess. PT/OT to assess gait ability. Radiology to place drain today but Lovenox okay to give now. Check Doppler. Doppler positive for partial thrombosis of the bilateral profunda femoral veins. 11/30/19 16:08 patient is 69-year-old male with history of abdominal wall abscess and drains were placed on last to admission and symptom had improved and was discharged, patient return again is found to have a large abdominal wall abscess patient was seen by IR and drain was placed about 10 cc of bloody fluid was collected, patient is seen by surgery recommended to continue drained and monitor, patient is also found to pulmonary emboli and DVT, the has a very high risk of fall and bleed due to alcohol abuse, however he is currently in the nursing we have started the patient on Lovenox, will have a PT OT evaluate the patient, today patient blood pressure is soft his p.o. intake is poor will start the patient on IV fluid 100 cc/hour and monitor, patient blood culture and urine culture is growing E coli with ESBL emergency department had started the patient on Levaquin and is resistant, started the patient imipenem will continue to monitor, will continue IV antibiotics for 14 days or 2/14days, Repeat chest CT scan of the abdomen and chest shows significant improvement in abscess however patient continued to have a persistent drainage seen by surgery team recommending to continue present management with antibiotics, patient is receiving imipenem 4 times a day will consult Dr. Clarke for his opinion with possible different antibiotics which can be given q.day for us to transfer the patient to shelter. (2) Abdominal abscess: Status: Chronic Assessment and Plan: CT scan showing multiple rim enhancing abscesses. No evidence of symtomatic infectious process: no fever, chills, elevated WBC. CRP 3.3 butlower than in October. One is actively draining. GenSurg consulted. Levaquin started in ER. Will continue Levaquin. Can prolong QTc as can Seroquel so will check EKG. Add Flagyl since source probably from [place]. Plan for drain placement by IR. Follow up on blood cultures and wound cultures. EKG reviewed: QTc 319, AFib with rate 122. nonspecific ST and T wave changes in the high lateral leads(that are better now then prior EKG 11/13/19) (3) Atrial fibrillation: Code(s): I48.91 - Unspecified atrial fibrillation Status: Chronic Assessment and Plan: Patient chronic atrial fibrillation occasional RVR. Currently on diltiazem and metoprolol. No oral anticoagulation because of fall risk and alcohol abuse. resume home medications and monitor for now. May need adjustment depending on how well controlled he is. (4) CHF (congestive heart failure): Qualifiers: Heart failure chronicity: unspecified Heart failure type: unspecified Qualified Code(s): I50.9 - Heart failure, unspecified Code(s): I50.9 - Heart failure, unspecified Status: Chronic Assessment and Plan: Stable. Not in acute exacerbation. Patient is on Lasix which will continue. He is also on potassium replacement. Continue to monitor fluid balance. (5) COPD (chronic obstructive pulmonary disease): Qualifiers: COPD type: unspecified COPD Qualified Code(s): J44.9 - Chronic obstructive pulmonary disease, unspecified Code(s): J44.9 - Chronic obstructive pulmonary disease, unspecified Status: [facility]
[2019-11-30] MEDS: dilTIAZem HCL CD 180 MG CAP.ER.24H PO (18:12)
[2019-12-01] VITALS (13 sets, daily range): BP systolic 100–130; BP diastolic 64–78; PULSE 72–96; RESP 18; TEMP 36.4; O2SAT 100
[2019-12-01 05:35] LABS: Hematocrit 35.2 % (42.0-52.0); Hemoglobin 11.4 g/dL (14.0-18.0); Mean Corpuscular HGB Conc 32.4 g/dl (32-36); Mean Corpuscular Hemoglobin 31.3 pg (26-34); Mean Corpuscular Volume 96.7 fl (80-100); Mean Platelet Volume 9.7 fl (7.4-10.4); Platelet Count Result 199 k/mm3 (150-375); Red Blood Count 3.64 M/mm3 (4.6-6.20); Red Cell Distribution Width 16.7 % (11.5-14.5); White Blood Count 5.3 K/mm3 (4.5-10.0)
[2019-12-01 05:54] LABS: Alanine Aminotransferase 19 U/L (4-50); Albumin Level 2.3 g/dL (3.5-5.1); Alkaline Phosphatase 157 U/L (38-126); Anion Gap 3 mmol/L (8-16); Aspartate Amino Transferase 35 U/L (17-59); Bilirubin,Total 0.2 mg/dL (0.2-1.3); Blood Urea Nitrogen 11 mg/dL (9-20); Calcium 8.1 mg/dL (8.4-10.2); Carbon Dioxide 29 mmol/L (22-30); Chloride 102 mmol/L (98-107); Estimated CRCL calculation 107 ml/min; Estimated Glomerular Filt Rate > 60; Glucose 90 mg/dL (75-110); Magnesium 1.9 mg/dL (1.6-2.3); Potassium 3.9 mmol/L (3.4-5.0); Sodium 134 mmol/L (137-145)
[2019-12-01] MEDS: ENOXAPARIN 80 MG/0.8 ML SYRINGE SUB-Q (08:32)
[2019-12-01] MEDS: QUEtiapine FUMARATE 12.5 MG TABLET PO (08:32)
[2019-12-01] MEDS: POTASSIUM CHLORIDE 10 MEQ TABLET.ER 40 MEQ PO (08:32)
[2019-12-01] MEDS: TIMOLOL MALEATE 0.5% OP SOLN 5 ML BOTTLE 1 DROP EACH EYE (08:32)
[2019-12-01] MEDS: THIAMINE HCL 100 MG TABLET PO (08:32)
[2019-12-01] MEDS: ASPIRIN 81 MG ENTERIC TABLET PO (08:32)
[2019-12-01] MEDS: CHOLECALCIFEROL 1,000 UNITS TABLET 5000 UNITS PO (08:32)
[2019-12-01] MEDS: MULTIVITAMINS THERAPEUTIC TAB (*BKC) 1 TABLET PO (08:32)
[2019-12-01] MEDS: MAGNESIUM OXIDE 400 MG TABLET PO (08:32)
[2019-12-01] MEDS: PANTOPRAZOLE SOD SESQUIHYDRATE 20 MG TAB PO (08:32)
[2019-12-01] MEDS: METOPROLOL TARTRATE 50 MG TAB 100 MG PO (08:33)
[2019-12-01] MEDS: polyethylene glycoL 3350 17 GM POWD.PACK PO (08:34)
[2019-12-01] MEDS: FUROSEMIDE 40 MG TABLET PO (08:34)
[2019-12-01] MEDS: FOLIC ACID 1 MG TABLET PO (08:34)
[2019-12-01] MEDS: SILVERGEL (ELTA) 45 ML 1 APPLIC TOPICAL (08:35)
--- NOTE | 2019-12-01 10:06 | WPDINFPN2 ---
Progress Note: A&P Assessment and Plan (1) Intra-abdominal abscess: Code(s): K65.1 - Peritoneal abscess Status: Acute Assessment and Plan: recurrent abdominal abscess REC Imipenem #4, change to ertapenem x 6 doses for SNF administration. Call if Qs Subjective Date/time seen: 12/01/19 10:06 Objective Data Vital Signs Vital Signs: Vital Signs - 24 hr 11/30/19 12:00 11/30/19 13:32 11/30/19 14:49 Temperature 36.3 C L Pulse Rate 84 72 71 Respiratory Rate 20 18 Blood Pressure 97/71 L Pulse Oximetry 97 11/30/19 14:54 11/30/19 16:00 11/30/19 20:00 Temperature Pulse Rate 79 77 91 Respiratory Rate 20 Blood Pressure Pulse Oximetry 11/30/19 20:26 11/30/19 20:31 11/30/19 21:16 Temperature Pulse Rate 84 80 90 Respiratory Rate 18 18 Blood Pressure Pulse Oximetry 11/30/19 22:00 12/01/19 00:00 12/01/19 01:43 Temperature 36.3 C L Pulse Rate 79 89 76 Respiratory Rate 20 18 Blood Pressure 122/86 Pulse Oximetry 99 12/01/19 02:00 12/01/19 04:00 12/01/19 05:57 Temperature 36.4 C Pulse Rate 78 87 88 Respiratory Rate 18 18 Blood Pressure 130/78 Pulse Oximetry 100 12/01/19 08:09 12/01/19 08:17 12/01/19 08:33 Temperature Pulse Rate 88 91 92 Respiratory Rate 18 18 Blood Pressure Pulse Oximetry Intake/Output Intake/Output: Intake & Output 11/28/19 11/29/19 11/30/19 12/01/19 23:59 23:59 23:59 23:59 Intake Total 3150 2867 990 590 Output Total 1815 0490 2105 300 Balance 1335 327 -1115 290 Meds/Results Medications: Active Medications Generic Name Dose Route Start Last Admin Trade Name Freq PRN Reason Stop Dose Admin Acetaminophen 650 mg 11/25/19 18:04 Tylenol Tablet PO Q4H PRN Mild Pain (1-3) or Fever Acetaminophen 650 mg 11/26/19 01:28 Tylenol Tablet PO Q6H PRN Mild Pain (1-3) Or Fever Alprazolam 0.25 mg 11/27/19 15:24 Xanax PO QID PRN Anxiety Aspirin 81 mg 11/27/19 09:00 12/01/19 08:32 Aspirin Ec PO 81 mg QAM MONET Administration Diltiazem HCl 180 mg 11/26/19 18:00 11/30/19 18:12 Cardizem Cd PO 180 mg QPM MONET Administration Diltiazem HCl 240 mg 11/26/19 09:00 12/01/19 08:32 Cardizem Cd PO 240 mg QAM MONET Administration Enoxaparin Sodium 80 mg 11/26/19 10:00 12/01/19 08:32 Lovenox SUB-Q 80 mg Q12HR MONET Administration Folic Acid 1 mg 11/26/19 09:00 12/01/19 08:34 Folic Acid PO 1 mg DAILY MONET Administration Furosemide 40 mg 11/26/19 09:00 12/01/19 08:34 Lasix Tablet PO 40 mg DAILY MONET Administration Imipenem/Cilastatin Sodium 500 mg in 100 mls @ 300 mls/hr 11/27/19 15:00 12/01/19 08:55 Primaxin 500 Mg/D5w 100 Ml IVPB 300 mls/hr Q6H MONET Administration Levalbuterol HCl 1.25 mg 11/26/19 02:00 12/01/19 08:09 Xopenex 1.25 Mg/0.5 Ml INHALATION 1.25 mg Q6HRT MONET Administration Magnesium Oxide 400 mg 11/26/19 09:00 12/01/19 08:32 Mag-Ox PO 400 mg QAM MONET Administration Metoprolol Tartrate 100 mg 11/26/19 09:00 12/01/19 08:33 Lopressor PO 100 mg Q12HR MONET Administration Multivitamins Therapeutic 1 tablet 11/26/19 09:00 12/01/19 08:32 Multivitamins Therapeutic(*Bkc PO 1 tablet DAILY MONET Administration Pantoprazole Sodium 20 mg 11/26/19 09:00 12/01/19 08:32 Protonix PO 12/26/19 09:01 20 mg DAILY MONET Administration Polyethylene Glycol 17 gm 11/26/19 09:00 12/01/19 08:34 Miralax PO 17 gm QAM MONET Administration Potassium Chloride 40 meq 11/26/19 08:00 12/01/19 08:32 Kcl Tablet PO 40 meq DAILY@0800 MONET Administration Quetiapine Fumarate 12.5 mg 11/26/19 09:00 12/01/19 08:32 Seroquel PO 12.5 mg Q12HR MONET Administration Silver Nitrate 1 applic 11/26/19 09:00 12/01/19 08:35 Silvergel TOPICAL 1 applic DAILY MONET Administration Thiamine HCl 100 mg 11/26/19 09:00 12/01/19 08:32 Vitamin B-1
--- NOTE | 2019-12-01 10:39 | PCOTNOTE ---
Patient refused to participate in therapy at this time and became aggravated when practitioner attempted to have patient participate in therapy session 12/01/2019.
[2019-12-01] MEDS: ACETAMINOPHEN 325 MG TABLET 650 MG PO (13:15)
[2019-12-01] MEDS: ERTAPENEM 1 GM/NS 50 ML 1 GM/50 ML BAG IVPB (13:16)
--- NOTE | 2019-12-01 14:10 | PM.DS ---
DS: Admitting Diagnosis Admitting Diagnosis Admitting Diagnosis: Recurrent abdo abscesses DS: Discharge Diagnosis Discharge Diagnosis (1) Pulmonary embolism: Code(s): I26.99 - Other pulmonary embolism without acute cor pulmonale Status: Acute Assessment and Plan: As per previous notes. Pt has a RLL PE and possibly infarct. Other providers have not recommended anticoagulation because Thought to be a poor candidate for oral anticoagulation because of falls and alcohol abuse . He is in a NH and no obvious contraindication. Pt to continue on Lovenox on discharge. Other history from previous notes, patient is 69-year-old male with history of abdominal wall abscess and drains were placed on last to admission and symptom had improved and was discharged, patient return again is found to have a large abdominal wall abscess patient was seen by IR and drain was placed about 10 cc of bloody fluid was collected, patient is seen by surgery recommended to continue drained and monitor, patient is also found to pulmonary emboli and DVT, the has a very high risk of fall and bleed due to alcohol abuse, however he is currently in the nursing we have started the patient on Lovenox, will have a PT OT evaluate the patient, today patient blood pressure is soft his p.o. intake is poor will start the patient on IV fluid 100 cc/hour and monitor, patient blood culture and urine culture is growing E coli, in emergency department had started the patient on Levaquin and is resistant, started the patient imipenem will continue to monitor, will continue IV antibiotics for 14 days, Repeat chest CT scan of the abdomen and chest shows significant improvement in abscess however patient continued to have a persistent drainage seen by surgery team recommending to continue present management with antibiotics, patient is receiving imipenem 4 times a day here will transition to ertapenem in the SNF. Pt had drain placement by IR on Nov. Pt goes home with drain remove drain when would like it to be 20mL or less per day for several days. Rite now having 30ml. (2) Abdominal abscess: Status: Chronic Assessment and Plan: CT scan showing multiple rim enhancing abscesses. See above treatment plan. Pt had drain placement by IR on Nov. Pt goes home with drain remove drain when would like it to be 20mL or less per day for several days. Rite now having 30ml. (3) Atrial fibrillation: Code(s): I48.91 - Unspecified atrial fibrillation Status: Chronic Assessment and Plan: Patient chronic atrial fibrillation occasional RVR. Currently on diltiazem and metoprolol. No oral anticoagulation because of fall risk and alcohol abuse. Resume home medications and monitor for now. (4) CHF (congestive heart failure): Qualifiers: Heart failure chronicity: unspecified Heart failure type: unspecified Qualified Code(s): I50.9 - Heart failure, unspecified Code(s): I50.9 - Heart failure, unspecified Status: Chronic Assessment and Plan: Stable. (5) COPD (chronic obstructive pulmonary disease): Qualifiers: COPD type: unspecified COPD Qualified Code(s): J44.9 - Chronic obstructive pulmonary disease, unspecified Code(s): J44.9 - Chronic obstructive pulmonary disease, unspecified Status: Chronic Assessment and Plan: Stable. (6) Essential hypertension: Code(s): I10 - Essential (primary) hypertension Status: Chronic Assessment and Plan: Continue current medications with diltiazem and metoprolol (7) Anxiety: Code(s): F41.9 - Anxiety disorder, unspecified Status: Chronic Assessment and Plan: Mood stable. Continue Alprazolam. (8) History of BPH: Code(s): Z87.438 - Personal history of other diseases of male genital organs Status: Chronic Assessment and Plan: Patient has a Coombs catheter an
--- NOTE | 2019-12-01 14:16 | P.CDI_ITS ---
CDI Query Clarification Request -11/24 urine culture growing >100,000 E Coli ESBL - Chronic indwelling pfeiffer catheter has been documented Please clarify if there is a corresponding diagnosis for above findings: * UTI related to chronic pfeiffer catheter * UTI not related to chronic pfeiffer catheter * Asymptomatic bacteriuria * Unable to determine <Jemma Uribe RN - Last Filed: 12/01/19 14:19> Provider Comments UTI DUE TO CHRONIC INDWELLING CATHETER <Christa Tesfaye MD - Last Filed: 12/04/19 15:53>
--- NOTE | 2019-12-01 14:16 | WPDCDIQUERY2 ---
CDI Query Clarification Request -11/24 urine culture growing >100,000 E Coli ESBL - Chronic indwelling pfeiffer catheter has been documented Please clarify if there is a corresponding diagnosis for above findings: UTI related to chronic pfeiffer catheter UTI not related to chronic pfeiffer catheter Asymptomatic bacteriuria Unable to determine <Jemma Uribe RN - Last Filed: 12/01/19 14:19> Provider Comments UTI DUE TO CHRONIC INDWELLING CATHETER <Christa Tesfaye MD - Last Filed: 12/04/19 15:53>
[2019-12-01] MEDS: dilTIAZem HCL CD 180 MG CAP.ER.24H PO (18:05)
--- NOTE | 2019-12-02 06:10 | CONS_ITS ---
DATE OF CONSULTATION: 12/01/2019 REASON FOR CONSULTATION: Abdominal abscess. HISTORY OF PRESENT ILLNESS: The patient is a 69-year-old male, who developed acute cholecystitis in July of this year, which was managed nonoperatively. He since then has developed recurrent right upper quadrant abscesses associated with chronic cholecystitis. He has had multiple drains over time and multiple courses of antibiotics as well. He returned to the hospital once again on the evening of the , admitted earlier on the with a draining sinus tract. He denies any abdominal pain. Here, he has had a new drain placed with cultures below. He has been on imipenem now day #4. Consultation requested regarding options for sniff use. He has not had any open operations. He has been afebrile. ALLERGIES: PENICILLINS, BUT TOLERATES CEPHALOSPORINS AND CARBAPENEMS. HABITS: See record. PRESENT MEDICATIONS: No immunosuppressants. PAST MEDICAL HISTORY: Extensive as detailed in his current and past records and pertinent for BPH, COPD and heart failure. FAMILY HISTORY: Not pertinent to his present illness. SOCIAL HISTORY: He is , retired, currently at a prison. REVIEW OF SYSTEMS: Allergic, immunologic, constitutional, GI, respiratory, otherwise negative. Coombs catheter in place. PHYSICAL EXAMINATION: GENERAL: This is a chronically ill-appearing male, older than his actual age. No acute distress. VITAL SIGNS: Afebrile since arrival, 88, 18, 130/78. SKIN: No generalized rashes. EENT: The conjunctivae are normal. Pupils equal, round. The oral mucosa is dry, otherwise no thrush. LUNGS: Clear to auscultation and percussion. CARDIAC: Regular rate and rhythm. ABDOMEN: Drain in place. Bloody, no abdominal tenderness. Obese. EXTREMITIES: 2+ edema. LABORATORY DATA: Fluid culture with an ESBL producing E. coli. Blood cultures from the no growth after five and half days incubation. Urine culture also with ESBL producing E. coli. White count normal, hemoglobin 11.4, platelets are 199. His chemistry panel normal other than minimal hyponatremia. Alkaline phosphatase 157, albumin 2.3. RADIOLOGY: CT as described. ASSESSMENT: 1. Recurrent and persistent intraabdominal abscesses due to chronic cholecystitis. No sepsis. 2. Penicillin allergy. 3. Debility. RECOMMENDATIONS: 1. Change imipenem to ertapenem. Continue for 6 additional days to complete 10 days of therapy. 2. Okay for discharge to his prison once all arrangements made. Thank you very much for asking me to see him. ANASTASIA PRAETR M.D. SALES PROPERTY MANAGER SALES PROPERTY MANAGER D I MT: Michelle
== END 2019-12-01 18:40 | DRG 371 ==
LOC: ANHED 18:30 → ANH2MED 23:46
PROVIDERS: Family Medicine; Surgery; Admitting Provider Internal Medicine; Emergency Provider Emergency Medicine; PCP Family Medicine; Visit Provider Family Medicine
DX: K65.1 Peritoneal abscess (principal); I26.99 Other pulmonary embolism without acute cor pulmonale; T83.511A Infection and inflammatory reaction due to indwelling urethral catheter, initial encounter; K81.0 Acute cholecystitis; I48.20 Chronic atrial fibrillation, unspecified; J98.11 Atelectasis; I82.413 Acute embolism and thrombosis of femoral vein, bilateral; Z16.23 Resistance to quinolones and fluoroquinolones; N39.0 Urinary tract infection, site not specified; B96.20 Unspecified Escherichia coli [E. coli] as the cause of diseases classified elsewhere; I11.0 Hypertensive heart disease with heart failure; I50.9 Heart failure, unspecified; K57.90 Diverticulosis of intestine, part unspecified, without perforation or abscess without bleeding; F41.9 Anxiety disorder, unspecified; D64.9 Anemia, unspecified; E55.9 Vitamin D deficiency, unspecified; J44.9 Chronic obstructive pulmonary disease, unspecified; E78.5 Hyperlipidemia, unspecified; F10.10 Alcohol abuse, uncomplicated; Z87.438 Personal history of other diseases of male genital organs; Z86.73 Personal history of transient ischemic attack (TIA), and cerebral infarction without residual deficits; Z98.42 Cataract extraction status, left eye; Z98.41 Cataract extraction status, right eye; Z87.891 Personal history of nicotine dependence; Z91.81 History of falling
CPT/HCPCS: 36415; 36569; 70450; 71250; 74176; 74177; 75989; 80048; 80053; 81001; 83605; 83735; 85025; 85027; 85610; 85730; 86140; 87040; 87070; 87075; 87077; 87086; 87088; 87186; 87205; 93005; 93970; 94640; 97110; 97161; 97165; 97530; 97535; 99285; A9270; C1729; C1751; C1769; J0743; J1335; J1650; J1940; J1956; J3475; J7030; Q9967

== ENCOUNTER 2019-12-18 10:10 | Emergency (ER) | payer BC, SELFPAY ==
--- NOTE | ~2019-12-18 | CT_ITS ---
EXAMINATION: CT abdomen pelvis w con DATE: 12/18/2019 13:10 INDICATION: Right upper quadrant wound. Recent biliary drainage, gallbladder abscess TECHNIQUE: Computed tomography (CT) of the abdomen and pelvis was performed without intravenous contr ast. Automated exposure control and iterative reconstruction technique were employed. Exam dose: 581 .71 mGy-cm total exam DLP. COMPARISON: 11/30/2019 CT chest abdomen pelvis FINDINGS: There are small bilateral pleural effusions. Mild pericardial effusion. Coronary artery calcification. Borderline cardiomegaly. There is a large multilocular abscess along the right upper anterior abdominal wall/anterior peritone al cavity, measuring up to 9.5 cm transverse, 11.0 cm vertical and up to 6 cm maximal anteroposterior dimension. The percutaneous drainage catheter present on 11/30/2019 is no longer present. There is no evidence of residual abscess at that time. Irregular gallbladder lumen without evidence of probable gallstones; gallbladder wall thickening. Mild perihepatic fluid. No hepatic space-occupying mass lesion is evident. Diffuse hepatic steatosis. No bile duct or pancreatic duct dilatation. Occasional splenic calcified granulomas. Normal splenic size. No pancreatic mass lesion, calcificatio n or ductal dilatation. Probable 12 mm right adrenal adenoma. Left adrenal gland is unremarkable. 3.8 cm parapelvic right renal cyst. 8 mm upper pole right renal cyst. 6 mm upper pole left renal cyst. There is atherosclerotic calcification of the abdominal aorta and iliac arteries but no aneurysm. No intraperitoneal or retroperitoneal or pelvic mass lesion or adenopathy or ascites. There are numerous diverticula sigmoid and descending colon, with multiple right colonic diverticula; no CT evidence of diverticulitis. Normal appendix. No bowel obstruction, bowel wall thickening, pneumatosis or intraperitoneal free air. Moderate prostate enlargement. There is moderate diffuse thickening of the urinary bladder wall. Advanced healing of an anterior right 10th rib fracture small bilateral pleural effusions Possible acute subtle nondisplaced anterior left sixth rib fracture. Severe degenerative disease and mild retrolisthesis at L5-S1. There is moderate compression fracture deformity at T11 and mild compression fracture deformity at L2 . IMPRESSION: Large multilocular abscess along the right upper anterior abdominal wall/anterior perito cesario cavity, measuring up to 9.5 x 11 x 6 cm Cholelithiasis Hepatic steatosis Probable 12 mm right adrenal adenoma Bilateral renal cysts Diverticulosis of left and right colon; no evidence of diverticulitis Moderate prostate enlargement Mild pericardial effusion, small bilateral pleural effusions Predominantly right dependent lower lobe infiltrate or atelectasis Compression fracture deformities of T11 and L2 Severe degenerative disc disease at L5-S1 Reviewed, dictated and finalized at [facility]. Reviewed, dictated and finalized at location A. IMPRESSION: Large multilocular abscess along the right upper anterior abdomina l wall/anterior peritoneal cavity, measuring up to 9.5 x 11 x 6 cm Cholelithiasis Hepatic steatosis Probable 12 mm right adrenal adenoma Bilateral renal cysts Diverticulosis of left and right colon; no evidence of diverticulitis Moderate prostate enlargement Mild pericardial effusion, small bilateral pleural effusions Predominantly right dependent lower lobe infiltrate or atelectasis Compression fracture deformities of T11 and L2 Severe degenerative disc disease at L5-S1
[2019-12-18 10:12] VITALS: BP 141/89; PULSE 108; RESP 16; TEMP 36.7; O2SAT 97
[2019-12-18 10:27] LABS: Basophils Percent Auto 0.5 % (0.2-1.2); Eosinophils Percent Auto 0.5 % (0-4.4); Hematocrit 34.1 % (42.0-52.0); Hemoglobin 11.2 g/dL (14.0-18.0); Immature Granulocyte Absolute 0.02 K/mm3 (0.00-0.031); Immature Granulocyte Percent A 0.3 % (0-0.5); Lymphocytes Absolute Auto 1.01 K/mm3 (0.9-3.2); Lymphocytes Percent Auto 16.7 % (18.3-44.2); Mean Corpuscular HGB Conc 32.8 g/dl (32-36); Mean Corpuscular Hemoglobin 31.3 pg (26-34); Mean Corpuscular Volume 95.3 fl (80-100); Mean Platelet Volume 9.4 fl (7.4-10.4); Monocytes Absolute Auto 0.6 K/mm3 (0.1-0.6); Monocytes Percent Auto 9.9 % (2.6-8.5); Neutrophils Absolute Auto 4.4 K/mm3 (1.3-6.7); Neutrophils Percent Auto 72.1 % (45.5-73.1); Platelet Count Result 273 k/mm3 (150-375); Red Blood Count 3.58 M/mm3 (4.6-6.20); White Blood Count 6.1 K/mm3 (4.5-10.0)
[2019-12-18 10:39] LABS: Alanine Aminotransferase 14 U/L (4-50); Albumin Level 2.8 g/dL (3.5-5.1); Alkaline Phosphatase 112 U/L (38-126); Anion Gap 6 mmol/L (8-16); Aspartate Amino Transferase 17 U/L (17-59); Bilirubin,Total 0.5 mg/dL (0.2-1.3); Blood Urea Nitrogen 9 mg/dL (9-20); Calcium 8.5 mg/dL (8.4-10.2); Carbon Dioxide 27 mmol/L (22-30); Chloride 99 mmol/L (98-107); Estimated CRCL calculation 107 ml/min; Estimated Glomerular Filt Rate > 60; Glucose 129 mg/dL (75-110); Potassium 3.1 mmol/L (3.4-5.0); Sodium 132 mmol/L (137-145)
[2019-12-18 10:47] LABS: Lipase < 10 U/L (23-300)
[2019-12-18 11:19] VITALS: PULSE 99; RESP 20; TEMP 36.6; O2SAT 100
--- NOTE | 2019-12-18 11:45 | ED.WOUNDLAC ---
HPI - Wound/Laceration General Chief Complaint: Wound/Laceration Stated Complaint: abcess on RUQ Time Seen by Provider: 12/18/19 11:44 Source: patient Mode of arrival: ambulatory Limitations: no limitations History of Present Illness HPI narrative: Patient is a 69-year-old male who presents for evaluation of irritation to his right abdomen. Patient states he has had a small sore over the area for the past 24 hours. He reports it is mildly tender, red. No active drainage. Per chart review, patiently recently had a cholecystectomy developed recurrent gallbladder abscesses and consequently had over 4 separate biliary drains placed over the course of a month. Initial management occurred on November 11, 2019. I imagine that this is the location/wound of the previous biliary drain. Patient denies any fever, chills, nausea or vomiting. Patient denies any history of skin infection. Related Data Home Medications Medication Instructions Recorded Confirmed aspirin 325 mg PO DAILY 07/25/19 12/11/19 cholecalciferol (vitamin D3) 125 mcg PO DAILY 07/25/19 12/11/19 [Vitamin D3] multivitamin 1 cap PO DAILY 09/07/19 12/11/19 timolol maleate 1 drp OPHTHALMIC (EYE) Q12HR 11/11/19 12/11/19 Allergies Allergy/AdvReac Type Severity Reaction Status Date / Time Penicillins Allergy Severe Hives / Verified 12/11/19 11:01 Red Face Review of Systems Review of Systems: Narrative: CONSTITUTIONAL: Denies fever, chills, or sweats. EYES: Denies visual changes, redness, or discharge. ENT: Denies rhinorrhea, congestion, sore throat, or otalgia. CARDIOVASCULAR: Denies chest pain, palpitations, or edema. RESPIRATORY: Denies cough or dyspnea. GASTROINTESTINAL: Denies abdominal pain, nausea, vomiting, or diarrhea. GENITOURINARY: Denies dysuria or hematuria. SKIN: Reports a red tender area over right upper abdomen MUSCULOSKELETAL: Denies back pain, joint pain, or myalgia. NEUROLOGIC: Denies headache, numbness, or weakness. [facility] Past Medical History Medical History Acute cholecystitis 07/2019 treated with antibiotic therapy, no cholecystectomy due to being a poor surgical candidate. 10/08/2019 - returned to hospital with intra-abdominal abscess in the gallbladder fossa and extending around liver - thought to be related to gallbladder perforation. Treated with antibiotics and percutaneous drainage x 3. Alcohol abuse Anxiety Atrial fibrillation Not on long-term anticoagulation per Cardiology. BPH (benign prostatic hyperplasia) CHF (congestive heart failure) Echocardiogram on 10/20/19 showing EF 55-60% with variable contractility due to atrial fibrillation. Aortic valve sclerosis without hemodynamically significant stenosis by Doppler. Trace TR, moderate pulmonary hypertension. Small circumferential pericardial effusion. Chronic anemia COPD (chronic obstructive pulmonary disease) Essential hypertension GERD (gastroesophageal reflux disease) Histoplasmosis Retinal histoplasmosis and very poor vision History of BPH History of TIAs Hyperlipidemia Vitamin D deficiency Social History Social History Social History: His paperwork says he is from at [facility]. The patient was where which facility came from this time. Patient was drinking (3) 4 oz drinks of Tequila a day prior to his hospitalization in July. He was recently hospitalized for a month and discharged to [facility] on 11/09/19 from [place]. Primary care physician: Dr. Jean-Claude Crawford Code status: Full code. Surrogate decision maker is Raine phone number [phone]. The patient has 2 children. 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 Smoking packs per day: 1 Smoking cigarettes per day: 20.0 Years smoked: 64 Smoking pack-years: 64.00 Smoking status: Current every day smoker Tobacco type: cigarettes Second hand tobacco smo
[2019-12-18 14:20] VITALS: BP 150/111; PULSE 103; RESP 18; O2SAT 99
[2019-12-18 16:33] VITALS: BP 152/101; PULSE 101; RESP 20; O2SAT 99
[2019-12-18 19:36] VITALS: BP 155/100; PULSE 119; RESP 20; O2SAT 99
== END 2019-12-18 19:42 | disposition short-term general hospital (02) ==
PROVIDERS: Emergency Provider Emergency Medicine; PCP Family Medicine
DX: K65.1 Peritoneal abscess (principal); J90 Pleural effusion, not elsewhere classified; E87.6 Hypokalemia; F17.210 Nicotine dependence, cigarettes, uncomplicated; I48.91 Unspecified atrial fibrillation; N40.0 Benign prostatic hyperplasia without lower urinary tract symptoms; J44.9 Chronic obstructive pulmonary disease, unspecified; K21.9 Gastro-esophageal reflux disease without esophagitis; Z86.73 Personal history of transient ischemic attack (TIA), and cerebral infarction without residual deficits; E78.5 Hyperlipidemia, unspecified; E55.9 Vitamin D deficiency, unspecified; I11.0 Hypertensive heart disease with heart failure; I50.9 Heart failure, unspecified
CPT/HCPCS: 36415; 74177; 80053; 83690; 85025; 96365; 96367; 99285; J0692; J3370; Q9967

== ENCOUNTER 2020-08-03 12:56 | Outpatient (CLI) | payer MEDICARE, SELFPAY | END 2020-08-03 12:57 | LOC: ANHCOVIDVC 12:56 | PROVIDERS: PCP Family Medicine | DX: Z23 Encounter for immunization (principal) | CPT/HCPCS: 0001A; 91300 ==

== ENCOUNTER 2020-08-24 12:53 | Outpatient (CLI) | payer MEDICARE, SELFPAY | END 2020-08-24 12:54 | disposition home or self-care (01) | LOC: ANHCOVIDVC 12:53 | PROVIDERS: PCP Family Medicine | DX: Z23 Encounter for immunization (principal) | CPT/HCPCS: 0002A; 91300 ==

== ENCOUNTER 2020-09-09 10:20 | Outpatient (CLI) | payer MEDICARE, SELFPAY ==
[2020-09-09 11:04] LABS: Alanine Aminotransferase 21 U/L (4-50); Albumin Level 3.9 g/dL (3.5-5.1); Alkaline Phosphatase 129 U/L (38-126); Anion Gap 5 mmol/L (8-16); Aspartate Amino Transferase 41 U/L (17-59); Bilirubin,Total 0.7 mg/dL (0.2-1.3); Blood Urea Nitrogen 16 mg/dL (9-20); Calcium 9.3 mg/dL (8.4-10.2); Carbon Dioxide 34 mmol/L (22-30); Chloride 99 mmol/L (98-107); Estimated Glomerular Filt Rate > 60; Glucose 128 mg/dL (75-110); Potassium 4.3 mmol/L (3.4-5.0); Sodium 138 mmol/L (137-145)
[2020-09-09 11:54] LABS: Basophils Percent Auto 0.3 % (0.2-1.2); Eosinophils Absolute Auto 0.1 K/mm3 (0-0.3); Eosinophils Percent Auto 1.4 % (0-4.4); Hematocrit 43.4 % (42.0-52.0); Hemoglobin 14.9 g/dL (14.0-18.0); Immature Granulocyte Absolute 0.01 K/mm3 (0.00-0.031); Immature Granulocyte Percent A 0.1 % (0-0.5); Lymphocytes Absolute Auto 1.86 K/mm3 (0.9-3.2); Lymphocytes Percent Auto 24.2 % (18.3-44.2); Mean Corpuscular HGB Conc 34.3 g/dl (32-36); Mean Corpuscular Hemoglobin 33.9 pg (26-34); Mean Corpuscular Volume 98.6 fl (80-100); Mean Platelet Volume 10.5 fl (7.4-10.4); Monocytes Absolute Auto 0.5 K/mm3 (0.1-0.6); Neutrophils Absolute Auto 5.2 K/mm3 (1.3-6.7); Platelet Count Result 176 k/mm3 (150-375); Red Cell Distribution Width 12.7 % (11.5-14.5); White Blood Count 7.7 K/mm3 (4.5-10.0)
== END 2020-09-09 10:21 | disposition home or self-care (01) ==
LOC: ANHLAB 10:22
PROVIDERS: PCP Family Medicine; Visit Provider Family Medicine
DX: N39.0 Urinary tract infection, site not specified (principal); R53.83 Other fatigue
CPT/HCPCS: 36415; 80053; 85025

== ENCOUNTER 2020-10-28 18:48 | Emergency (ER) | payer MEDICARE, SELFPAY ==
--- NOTE | ~2020-10-28 | CT_ITS ---
CORRECTED REPORT order changed [facility] [place] EXAMINATION: CT brain wo con, CT cervical spine wo con EXAM DATE: 10/28/2020 19:23 INDICATION: Fall, head laceration, injury. TECHNIQUE: Spiral CT of the head was performed without contrast. Axial, coronal and sagittal images were reviewed. Spiral CT of the cervical spine was performed without contrast. Axial images were reviewed. Coronal and sagittal reformatted images were also reviewed. The dose-length product (DLP) for this examination was 605.33 mGy-cm. The exposure was tailored according to patient size, and iterative reconstruction (ASIR) was used as additional dose reduction technique. Comparison is made to prior examination from 11/07/2019. FINDINGS: HEAD CT: Old punctate right caudate head lacunar infarction. There is no acute intraparenchymal hemorrhage. No evidence of intraparenchymal brain mass lesion. No evidence of acute infarction. There is mild periventricular and subcortical hypodensity, nonspecific but probably related to small vessel ischemic disease. There is moderate prominence of the sulci and ventricles related to cerebral atrophy. There is no mass effect or midline shift. There is no obstructive hydrocephalus suspected. There are no extra-axial collections. There are no acute calvarial fractures. Patient has had bilateral ocular lens surgery. Laceration identified toward the vertex with some subcutaneous gas. The visualized sinuses and mastoid air cells are well aerated. CERVICAL CT: There is no evidence of acute cervical fracture. The odontoid process is intact. Pre-dens space is normal. Prevertebral soft tissue is normal. There are no soft tissue abnormalities identified. There is no disc space widening or traumatic vertebral body subluxation suspected. There is moderate disc disease and arthropathy at C5-6 and 6-7. Multinodular goiter, with a right thyroid lobe nodule measuring 3.2 cm A detailed level by level evaluation of spondylosis can be added as addendum if requested. IMPRESSION: 1. No acute intracranial findings or cervical fracture. 2. Right thyroid nodule; consider follow-up nonemergent ultrasound for risk stratification. 3. Scalp laceration. Reviewed, dictated and finalized at location A. MTDD IMPRESSION: 1. No acute intracranial findings or cervical fracture. 2. Right thyroid nodule; consider follow-up nonemergent ultrasound for risk st ratification. 3. Scalp laceration.
[2020-10-28 18:56] VITALS: BP 133/97; PULSE 85; RESP 20; TEMP 36.3; O2SAT 97
--- NOTE | 2020-10-28 19:40 | PC.NURSE ---
Please call Raine when pt gets room. [phone].
--- NOTE | 2020-10-28 20:21 | PC.NURSE ---
Pt's called lighthouse keeper to get permission to wait in wr with pt, stated she was his caregiver. Per lighthouse keeper, ok to wait with pt. currently in wr.
--- NOTE | 2020-10-28 20:49 | PC.NURSE ---
pt and ambulated out of ED. stated he wants to leave . both parties ambulatory c steady, even gait to vehicle.
== END 2020-10-28 21:08 | disposition left against medical advice (07) ==
PROVIDERS: Emergency Provider General Practice; PCP Family Medicine
DX: S01.91XA Laceration without foreign body of unspecified part of head, initial encounter (principal)
CPT/HCPCS: 70450; 72125; 72126; 99199; Q9967

== ENCOUNTER 2021-06-08 20:28 | Inpatient (IN) | payer MEDICARE, SELFPAY ==
--- NOTE | ~2021-06-08 | CT_ITS ---
EXAMINATION: CT brain wo con DATE: 06/08/2021 20:52 INDICATION: Altered mental status TECHNIQUE: Computed tomography (CT) of the head was performed without intravenous contrast. The dose- length product was 756.67 mGy-cm. Automated exposure control and iterative reconstruction technique w ere employed. COMPARISON: CT dated 10/28/2020 FINDINGS: Mild generalized atrophy. There are chronic bilateral lacunar infarctions. There are scatte red mild periventricular and subcortical white matter changes, most likely related to small vessel is chemic disease (microangiopathy). No ventriculomegaly or midline shift. There is intracranial atheros clerosis. No acute intracranial hemorrhage, infarction, mass or mass effect. Basilar cisterns are pat ent. There is mild mucosal thickening of the right maxillary sinus. No depressed skull fractures. IMPRESSION: 1. No acute intracranial abnormality. 2: Chronic focal bilateral lacunar infarctions. 3: Chronic age-related findings. Reviewed, dictated and finalized at location A. EYOR WORKER
--- NOTE | ~2021-06-08 | XR_ITS ---
EXAMINATION: XR chest 1V 06/08/2021 21:00 INDICATION: Transient alteration of awareness PROCEDURE: AP portable chest COMPARISON: Comparison to multiple prior studies sequentially, with oldest reviewed study dated 11/02. FINDINGS: The lungs are clear. The cardiomediastinal silhouette is within normal limits. There are no pleural effusions. There is no pneumothorax suspected. There is atherosclerosis of the aorta. A IMPRESSION: 1: NO ACUTE CARDIOPULMONARY DISEASE. Reviewed, dictated and finalized at location A. CTION PREVENTION SPECIALIST
--- NOTE | ~2021-06-08 | CT_ITS ---
EXAMINATION: CT brain wo con DATE: 06/11/2021 13:18 INDICATION: Intracranial hemorrhage. TECHNIQUE: Computed tomography (CT) of the head was performed without intravenous contrast. The mA wa s adjusted according to patient size. Iterative reconstruction technique was employed. The dose-lengt h product was 908.00 mGy-cm. COMPARISON: Head CT 06/08/2021, brain MRI 06/11/2021 FINDINGS: There is dependent hyperdense hematoma in the proximal horns of the lateral ventricles. The re are old lacunar infarcts in the margaret and bilateral caudate nuclei. There are scattered areas of lo w attenuation in the cerebral white matter. There is no acute ischemic infarct or abnormal mass lesio n. The ventricles are normal in size. The mastoid air cells are normal. There is minimal mucosal thic kening in the paranasal sinuses. There are likely changes of ocular lens replacement surgeries. IMPRESSION: 1. Small volume of dependent acute hematoma in the occipital horns of the lateral ventricles, new fro 06/08/2021. 2. Old lacunar infarcts involving the margaret and bilateral caudate nuclei. 3. Mild nonspecific cerebral white matter disease, which likely represents chronic small vessel ische stella disease. Reviewed, dictated and finalized at location A. IAL FORCES ENGINEER SERGEANT IMPRESSION: 1. Small volume of dependent acute hematoma in the occipital horns of the later al ventricles, new from 06/08/2021. 2. Old lacunar infarcts involving the margaret and bilateral caudate nuclei. 3. Mild nonspecific cerebral white matter disease, which likely represents container filler reuben small vessel ischemic disease.
--- NOTE | ~2021-06-08 | MR_ITS ---
EXAMINATION: MR brain/brain stem wo con DATE: 06/11/2021 11:52 INDICATION: Confusion. TECHNIQUE: Magnetic resonance imaging (MRI) of the brain and brainstem was performed without intraven ous contrast. Sequences included sagittal and axial T1-weighted FSE, axial diffusion-weighted FS EPI, axial T2*-weighted GRE, axial T2-weighted FLAIR Propeller, and axial T2-weighted Propeller. Apparent diffusion coefficient (ADC) maps were created. COMPARISON: Brain MRI 11/04/2019, head CT 06/08/2021 FINDINGS: There are scattered areas of nonspecific increased T2-weighted signal intensity in the cere bral and cerebellar white matter and margaret. There is a small volume of dependent hematoma in the occip ital horns of the lateral ventricles. There are old lacunar infarcts in the margaret and bilateral caudat e nuclei. There is no acute ischemic infarct or abnormal mass lesion. There are likely changes of ocu lar lens replacement surgeries. There is mild mucosal thickening in the paranasal sinuses. The mastoi d air cells are normal. IMPRESSION: 1. Small volume of dependent hematoma in the occipital horns of the lateral ventricles. 2. Old lacunar infarcts involving the margaret and bilateral caudate nuclei. 3. Mild nonspecific cerebral and cerebellar white matter disease and pontine disease, which likely re presents chronic small vessel ischemic disease. Reviewed, dictated and finalized at location A. RINARY TECHNOLOGIST IMPRESSION: 1. Small volume of dependent hematoma in the occipital horns of the lateral janet tricles. 2. Old lacunar infarcts involving the margaret and bilateral caudate nuclei. 3. Mild nonspecific cerebral and cerebellar white matter disease and pontine di sease, which likely represents chronic small vessel ischemic disease.
--- NOTE | 2021-06-08 20:37 | ECG_ITS ---
Measurements Intervals [place] Rate: 94 P: LA: 0 QRS: 45 QRSD: 87 T: -8 QT: 383 QTc: 481 Interpretive Statements ATRIAL FIBRILLATION NONSPECIFIC T-WAVE ABNORMALITY ABNORMAL ECG COMPARED TO ECG 11/26/2019 10:36:36 NO SIGNIFICANT CHANGES Electronically Signed On 06-09-2021 10:30:54 SALES PROGRAM COORDINATOR by Heron Martinez M.D.
[2021-06-08 20:38] LABS: Glucose Point of Care 127 mg/dl (65-105)
[2021-06-08 20:40] VITALS: BP 119/79; PULSE 105; PULSE 98; RESP 16; RESP 20; TEMP 36.4; TEMP 36.6; O2SAT 97
[2021-06-08 20:47] LABS: Basophils Percent Auto 0.4 % (0.2-1.2); Eosinophils Absolute Auto 0.1 K/mm3 (0-0.3); Eosinophils Percent Auto 1.7 % (0-4.4); Hematocrit 39.9 % (42.0-52.0); Immature Granulocyte Absolute 0.02 K/mm3 (0.00-0.031); Immature Granulocyte Percent A 0.3 % (0-0.5); Lymphocytes Absolute Auto 2.43 K/mm3 (0.9-3.2); Lymphocytes Percent Auto 33.5 % (18.3-44.2); Mean Corpuscular HGB Conc 35.1 g/dl (32-36); Mean Corpuscular Hemoglobin 35.5 pg (26-34); Mean Corpuscular Volume 101.3 fl (80-100); Mean Platelet Volume 10.5 fl (7.4-10.4); Monocytes Absolute Auto 0.6 K/mm3 (0.1-0.6); Monocytes Percent Auto 8.4 % (2.6-8.5); Neutrophils Percent Auto 55.7 % (45.5-73.1); Platelet Count Result 132 k/mm3 (150-375); Red Blood Count 3.94 M/mm3 (4.6-6.20); Red Cell Distribution Width 12.6 % (11.5-14.5); White Blood Count 7.3 K/mm3 (4.5-10.0)
[2021-06-08 20:52] LABS: Add Urine Microscopic? NO; Appearance Urine Clear (Clear); Bilirubin Urine Negative (Negative); Blood Urine Negative (Negative); Color Urine Yellow (Yellow); Glucose Urine UA Negative (Negative); Ketones Urine Negative (Negative); Leukocyte Esterase Ur Negative LEU/UL (Negative); Nitrate Urine Negative (Negative); Protein Urine Negative (Negative); Specific Grav Ur 1.014 (1.001-1.035); Urobilinogen Urine Negative mg/dL (<2.0)
--- NOTE | 2021-06-08 20:54 | PC.NURSE ---
Pt taken for CT scans.
[2021-06-08 21:00] VITALS: PULSE 103; RESP 16
[2021-06-08 21:03] LABS: Ethanol 101 mg/dL (<10)
[2021-06-08 21:06] LABS: Amphetamine Screen Urine Negative (Negative); Barbiturate Screen Urine Negative (Negative); Benzodiazepines Screen Urine Negative (Negative); Cannabinoid Screen Urine Negative (Negative); Cocaine Screen Urine Negative (Negative); Methadone Screen Urine Negative (Negative); Opiate Screen Urine Negative (Negative); Phencyclidine Screen Urine Negative (Negative)
[2021-06-08 21:15] VITALS: PULSE 100; RESP 17; O2SAT 100
[2021-06-08 21:24] LABS: Alanine Aminotransferase 11 U/L (4-50); Albumin Level 3.3 g/dL (3.5-5.1); Alkaline Phosphatase 72 U/L (38-126); Anion Gap 7 mmol/L (8-16); Aspartate Amino Transferase 28 U/L (17-59); Bilirubin,Total 0.3 mg/dL (0.2-1.3); Blood Urea Nitrogen 10 mg/dL (9-20); Calcium 7.9 mg/dL (8.4-10.2); Carbon Dioxide 30 mmol/L (22-30); Chloride 100 mmol/L (98-107); Estimated Glomerular Filt Rate > 60; Glucose 115 mg/dL (65-110); Potassium 2.7 mmol/L (3.4-5.0); Sodium 137 mmol/L (137-145)
--- NOTE | 2021-06-08 21:42 | ED.GENADULT ---
HPI - General Adult General Chief complaint: Alcohol Stated complaint: altered Time Seen by Provider: 06/08/21 20:30 History of Present Illness HPI narrative: Patient is a 71-year-old male who presents ER with weakness and altered mental status. Apparently patient fell down at home and was face down. EMS was called out to what they thought was a code. When they arrived patient was awake and mumbling. He was still face down so they rolled him over. It was reported that he had had multiple margaritas throughout the day. Patient is awake alert and oriented x2. He cannot describe the events that occurred at home or why he is at the hospital. According to his daughter who called he is legally blind. Apparently he is able to have normal conversation and is keenly alert which does not appear to be the case at this time. Patient does have some slurred speech. According to family it is also thought patient may have been getting on a stool to get something out of a cabinet causing a fall to the floor. No evidence of trauma to the head. Patient is on a blood thinner. Related Data Home Medications Medication Instructions Recorded Confirmed multivitamin 1 cap PO DAILY 09/07/19 01/25/21 thiamine HCl (vitamin B1) 100 mg 100 mg PO DAILY 02/26/20 01/25/21 tablet cholecalciferol (vitamin D3) 125 125 mcg PO DAILY 03/28/20 01/25/21 mcg (5,000 unit) capsule metoprolol tartrate 50 mg tablet 100 mg PO Q12HR tablet 01/25/21 01/25/21 Allergies Allergy/AdvReac Type Severity Reaction Status Date / Time Penicillins Allergy Severe Hives / Verified 01/25/21 15:02 Red Face Review of Systems Review of Systems: ROS unobtainable: Yes unobtainable due to mental status [facility] Past Medical History Medical History (Updated 06/09/21 @ 06:51 by Bill Kenney MD) Acute cholecystitis 07/2019 treated with antibiotic therapy, no cholecystectomy due to being a poor surgical candidate. 10/08/2019 - returned to hospital with intra-abdominal abscess in the gallbladder fossa and extending around liver - thought to be related to gallbladder perforation. Treated with antibiotics and percutaneous drainage x 3. Alcohol abuse Anxiety Atrial fibrillation BPH (benign prostatic hyperplasia) CHF (congestive heart failure) Echocardiogram on 10/20/19 showing EF 55-60% with variable contractility due to atrial fibrillation. Aortic valve sclerosis without hemodynamically significant stenosis by Doppler. Trace TR, moderate pulmonary hypertension. Small circumferential pericardial effusion. Chronic anemia COPD (chronic obstructive pulmonary disease) Essential hypertension GERD (gastroesophageal reflux disease) Histoplasmosis Retinal histoplasmosis and very poor vision History of BPH History of TIAs Hyperlipidemia Vitamin D deficiency Surgical History Surgical History History of bilateral cataract extraction History of vasectomy Male circumcision S/P cholecystectomy Family History Family History Sibling Polio Father Lung cancer Mother Hypertension Social History Social History (Updated 06/08/21 @ 21:48 by Bill Kenney MD) Social History: His paperwork says he is from at [facility]. The patient was where which facility came from this time. Patient was drinking (3) 4 oz drinks of Tequila a day prior to his hospitalization in July. He was recently hospitalized for a month and discharged to [facility] on 11/09/19 from [place]. Primary care physician: Dr. Jean-Claude Crawford Code status: Full code. Surrogate decision maker is Raine phone number [phone]. The patient has 2 children. 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 Smoking packs per day: 1 Smoking cigarettes per day: 20.0 Years smoked: 64 Smoking pack-years: 64.00 Smoking status: Current every day smoker Tobacco ty
--- NOTE | 2021-06-08 21:59 | PM.IMHP ---
H&P: HPI History of Present Illness Date/Time: 06/08/21 21:59 Chief Complaint: SYNCOPE Narrative: This is a 71-year-old male with past medical history significant for atrial fibrillation rate controlled and anticoagulated, retinal histoplasmosis with poor vision, recurrent falls, alcohol abuse, tobacco dependence, COPD, gastroesophageal reflux disease, TIA. The patient was brought to the emergency room after he had a fall at home and according to his significant other who is present patient is unable to give any history he was noted to have some involuntary movement and altered mental status. As per his significant other he has been in his usual state of health however he falls frequently patient drinks 3 shots of leak or daily. Today he had a fall with loss of consciousness according to his significant ordered patient was unresponsive and had to call EMS. At the time of my visit patient is easily arousable however he goes back to sleep. Preliminary workup was significant for a potassium of 2.3. A CT of the head did not show any acute abnormalities or bleeding. Patient is been admitted for further evaluation management and treatment. Review of Systems Review of Systems: ROS unobtainable: Yes unobtainable due to mental status (Encephalopathic delirious) [facility] Past Medical History Medical History (Updated 06/09/21 @ 02:22 by Freedom Wang MD) Acute cholecystitis 07/2019 treated with antibiotic therapy, no cholecystectomy due to being a poor surgical candidate. 10/08/2019 - returned to hospital with intra-abdominal abscess in the gallbladder fossa and extending around liver - thought to be related to gallbladder perforation. Treated with antibiotics and percutaneous drainage x 3. Alcohol abuse Anxiety Atrial fibrillation BPH (benign prostatic hyperplasia) CHF (congestive heart failure) Echocardiogram on 10/20/19 showing EF 55-60% with variable contractility due to atrial fibrillation. Aortic valve sclerosis without hemodynamically significant stenosis by Doppler. Trace TR, moderate pulmonary hypertension. Small circumferential pericardial effusion. Chronic anemia COPD (chronic obstructive pulmonary disease) Essential hypertension GERD (gastroesophageal reflux disease) Histoplasmosis Retinal histoplasmosis and very poor vision History of BPH History of TIAs Hyperlipidemia Vitamin D deficiency Surgical History Surgical History History of bilateral cataract extraction History of vasectomy Male circumcision S/P cholecystectomy Family History Family History Sibling Polio Father Lung cancer Mother Hypertension Social History Social History (Updated 06/08/21 @ 21:48 by Bill Kenney MD) Social History: His paperwork says he is from at [facility]. The patient was where which facility came from this time. Patient was drinking (3) 4 oz drinks of Tequila a day prior to his hospitalization in July. He was recently hospitalized for a month and discharged to [facility] on 11/09/19 from [place]. Primary care physician: Dr. Jean-Claude Crawford Code status: Full code. Surrogate decision maker is Raine phone number [phone]. The patient has 2 children. 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 Smoking packs per day: 1 Smoking cigarettes per day: 20.0 Years smoked: 64 Smoking pack-years: 64.00 Smoking status: Current every day smoker Tobacco type: cigarettes Second hand tobacco smoke exposure: Yes Smoking end date: 10/08/19 Alcohol intake: current Substance use: never Substance use type: does not use Last use: 1971 Additional living arrangements comments: [facility] since recent hospitalization Gender identity (if verbalized by the patient): Male Sexual Orientation (if Verbalized by the Patient): Straight or Heterosexual [facility] care co
[2021-06-08] MEDS: SODIUM CHLORIDE 0.9% IV 1,000 ML 150 ML IV CONT (22:02)
[2021-06-08] MEDS: POTASSIUM CHLORIDE INJ 40 MEQ in SODIUM CHLORIDE 0.9% IV 500 ML 130 MEQ IVPB (22:14)
--- NOTE | 2021-06-08 22:15 | PC.NURSE ---
Spouse at bedside with attending ED physician and neurologist.
[2021-06-08] MEDS: SODIUM CHLORIDE 0.9% IV 500 ML 999 ML IV CONT (22:43)
[2021-06-08 22:56] VITALS: BP 121/94; PULSE 95; RESP 14; O2SAT 100
[2021-06-08] MEDS: levETIRAcetam 1000MG/NACL100ML 1,000 MG/100 ML BAG 400 MG IVPB (23:08)
--- NOTE | 2021-06-08 23:20 | PC.NURSE ---
This patient, Lloyd Redman, was admitted to [facility] Surg Room 306-01. Patient/family oriented to hospital policies and general routines including ID bracelet, bed and alarms, visiting hours, pain management, procedures, bathroom and other care routines, personal items, smoking policy, room service/diet, and visiting hours. Information on how to activate the Rapid Response Team has been discussed. Patient/Family are encouraged to report perceived risks to care and to ask questions if they do not understand what they are told or what they should do.
[2021-06-08 23:32] VITALS: BP 118/78; PULSE 98; RESP 16; TEMP 37.2; O2SAT 100
--- NOTE | 2021-06-08 23:42 | PC.NURSE ---
Dr Dumont paged at [phone], returned call at [phone] EN
[2021-06-08 23:45] VITALS: BP 155/97; PULSE 84; RESP 16; TEMP 36.2; O2SAT 99
[2021-06-09] VITALS (10 sets, daily range): BP systolic 142–166; BP diastolic 84–110; PULSE 75–130; RESP 16–20; TEMP 36.2–36.4; O2SAT 97–100
--- NOTE | 2021-06-09 00:20 | PC.NURSE ---
ARRIVED IN THE UNIT 2320, PT SLEEPING/DROWSY, JUST OPENED HIS EYES, AND FELL RIGHT BACK TO SLEEP. PT UNABLE TO RESPOND TO QUESTIONS.
[2021-06-09] MEDS: THIAMINE HCL INJ 100 MG, FOLIC ACID INJ 1 MG, MULTIVITAMINS-12 INJ VIAL 1 5 ML, MULTIVI... IV CONT (03:00)
[2021-06-09] MEDS: POTASSIUM CHLORIDE INJ 40 MEQ in SODIUM CHLORIDE 0.9% IV 500 ML 130 MEQ IVPB (09:00)
--- NOTE | 2021-06-09 12:21 | P.PNIM_ITS ---
Progress Note: A&P Assessment and Plan (1) Fall: Code(s): W19.XXXA - Unspecified fall, initial encounter Status: Acute Assessment and Plan: Patient presents after fall at home with reported loss of consciousness after hitting his head * Details surrounding fall are unclear * Per ED physician, it was reported that family thought maybe he was reaching for something and lost his balance * He was likely intoxicated during this event and it was noted that he had multiple margaritas prior. Ethyl alcohol level 101 on presentation * Fall precautions implemented (2) Acute encephalopathy: Code(s): G93.40 - Encephalopathy, unspecified Status: Acute Assessment and Plan: Patients baseline mental status is unclear * He is A&O to self only today * Head CT on presentation showed no acute findings * This is likely related to chronic alcohol abuse * TSH is normal. Will check ammonia, B12, and folate * Continue to monitor mental status closely. Consider Neurology consult if no improvement (3) Chronic alcohol use: Code(s): Z72.89 - Other problems related to lifestyle Status: Chronic Assessment and Plan: Patient admits to drinking 12 oz of tequila daily * CIWA scores today ranging 1-6. Ativan prn CIWA >8 Update: most recent score following my eval was 13. Will initiate scheduled librium and continue to monitor closely * Continue thiamine and folic acid * Alcohol cessation will need to be discussed when patient is more cognizant (4) Atrial fibrillation: Code(s): I48.91 - Unspecified atrial fibrillation Status: Chronic Assessment and Plan: EKG on presentation showed atrial fibrillation with rate controlled in the 90s * He has been intermittently tachycardic today up to 130. * Most recently documented heart rate was 77 * I was unable to review telemetry results as the patient had removed his telemetry leads * Continue metoprolol tartrate 100 mg b.i.d. * Holding Eliquis due to his fall risk. Will need to discuss risks versus benefits of continued anticoagulation (5) Orthostatic hypotension: Code(s): I95.1 - Orthostatic hypotension Status: Acute Assessment and Plan: Patient with history of orthostatic hypotension * 24 point total decline in SBP from supine to standing today * He was rehydrated with gentle IV fluids on presentation * Initiate CARLYLE hose * Fall precautions as above (6) Chronic anticoagulation: Code(s): Z79.01 - flatwork feeder (current) use of anticoagulants Status: Acute Assessment and Plan: He is anticoagulated with apixaban due to his history of atrial fibrillation * He is a fall risk given his history of frequent falls and alcohol abuse * Will need to weigh risks versus benefits of continued anticoagulation. 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, however the patient is unable to identify his liquefaction supervisor at this time * Noted that he was seen by [facility] Cardiology at this facility in November 2019 at that time was felt to be a poor candidate for anticoagulation due to falls and alcohol abuse * HAS-BLED score is 3 * CHADS2-VASC score is 5 * Holding apixaban at this time (7) Tobacco abuse: Code(s): Z72.0 - Tobacco use Status: Acute Assessment and Plan: Patient smokes 1 pack per day * Nicotine patch 21 mg * Will need to educate the patient on smoking cessation when his confusion has improved (8) Hypokalemia: Code(s): E87.6 - Hypokalemia Status: Acute
--- NOTE | 2021-06-09 12:21 | PM.IMPN ---
Progress Note: A&P Assessment and Plan (1) Fall: Code(s): W19.XXXA - Unspecified fall, initial encounter Status: Acute Assessment and Plan: Patient presents after fall at home with reported loss of consciousness after hitting his head Details surrounding fall are unclear Per ED physician, it was reported that family thought maybe he was reaching for something and lost his balance He was likely intoxicated during this event and it was noted that he had multiple margaritas prior. Ethyl alcohol level 101 on presentation Fall precautions implemented (2) Acute encephalopathy: Code(s): G93.40 - Encephalopathy, unspecified Status: Acute Assessment and Plan: Patients baseline mental status is unclear He is A&O to self only today Head CT on presentation showed no acute findings This is likely related to chronic alcohol abuse TSH is normal. Will check ammonia, B12, and folate Continue to monitor mental status closely. Consider Neurology consult if no improvement (3) Chronic alcohol use: Code(s): Z72.89 - Other problems related to lifestyle Status: Chronic Assessment and Plan: Patient admits to drinking 12 oz of tequila daily CIWA scores today ranging 1-6. Ativan prn CIWA >8 Update: most recent score following my eval was 13. Will initiate scheduled librium and continue to monitor closely Continue thiamine and folic acid Alcohol cessation will need to be discussed when patient is more cognizant (4) Atrial fibrillation: Code(s): I48.91 - Unspecified atrial fibrillation Status: Chronic Assessment and Plan: EKG on presentation showed atrial fibrillation with rate controlled in the 90s He has been intermittently tachycardic today up to 130. Most recently documented heart rate was 77 I was unable to review telemetry results as the patient had removed his telemetry leads Continue metoprolol tartrate 100 mg b.i.d. Holding Eliquis due to his fall risk. Will need to discuss risks versus benefits of continued anticoagulation (5) Orthostatic hypotension: Code(s): I95.1 - Orthostatic hypotension Status: Acute Assessment and Plan: Patient with history of orthostatic hypotension 24 point total decline in SBP from supine to standing today He was rehydrated with gentle IV fluids on presentation Initiate CARLYLE hose Fall precautions as above (6) Chronic anticoagulation: Code(s): Z79.01 - assisted (current) use of anticoagulants Status: Acute Assessment and Plan: He is anticoagulated with apixaban due to his history of atrial fibrillation He is a fall risk given his history of frequent falls and alcohol abuse Will need to weigh risks versus benefits of continued anticoagulation. Would like to discuss this with his supervisor cold rolling, however the patient is unable to identify his supervisor cold rolling at this time Noted that he was seen by [facility] Cardiology at this facility in November 2019 at that time was felt to be a poor candidate for anticoagulation due to falls and alcohol abuse HAS-BLED score is 3 CHADS2-VASC score is 5 Holding apixaban at this time (7) Tobacco abuse: Code(s): Z72.0 - Tobacco use Status: Acute Assessment and Plan: Patient smokes 1 pack per day Nicotine patch 21 mg Will need to educate the patient on smoking cessation when his confusion has improved (8) Hypokalemia: Code(s): E87.6 - Hypokalemia Status: Acute Assessment and Plan: Potassium is 2.7 this morning Supplemented with 40 mEq IV KCl and 20 mEq p.o. KCl Continue with scheduled potassium supplementation 40 mEq p.o. b.i.d. Monitor BMP Subjective Date/time seen: 06/09/21 12:21 Interval history: Date of service: 06/09/2021 Lloyd Redman is a 71-year-old male with a history of atrial fibrillation on chronic anticoagulation, CHF, COPD, alcohol abuse, tobacco abuse, hypertension, hyperli
[2021-06-09 13:03] LABS: Magnesium 1.6 mg/dL (1.6-2.3)
[2021-06-09] MEDS: CHOLECALCIFEROL 1,000 UNITS TABLET 5000 UNITS PO (13:10)
[2021-06-09] MEDS: PANTOPRAZOLE 40 MG TABLET PO (13:10)
[2021-06-09] MEDS: POTASSIUM CHLORIDE 20 MEQ TABLET PO (13:10)
[2021-06-09] MEDS: METOPROLOL TARTRATE 50 MG TAB 100 MG PO ×2 (13:11→20:27)
[2021-06-09] MEDS: FUROSEMIDE 40 MG TABLET PO (13:12)
[2021-06-09] MEDS: LORazepam (*CRX) 0.5 MG TABLET PO (14:40)
[2021-06-09 16:02] LABS: Ammonia < 9 umol/L (9-30)
[2021-06-09] MEDS: OLANZapine 10 MG INJ VIAL 5 MG IM (16:50)
[2021-06-09] MEDS: NICOTINE (*PBKC) 21 MG PATCH 1 PATCH TRANSDERM (16:51)
[2021-06-09] MEDS: POTASSIUM CHLORIDE 20 MEQ TABLET.ER 40 MEQ PO (16:55)
[2021-06-09 17:54] LABS: Folic Acid > 20.0 ng/mL (2.76->20)
--- NOTE | 2021-06-09 18:03 | PC.NURSE ---
Patient has been very agitated and trying to get out of bad almost constantly since lunch. He is very uncooperative, has pulled out two I.V.s, and requires regular changing due to incontinence. He is alert to self and sometimes situation. He keeps saying he is at home and wants to go down stairs. He is not sure of the month, day, or year, but knows Dulce Maria is president. Provider notified regularly throughout the day. Patient currently asleep. Sitter in room.
[2021-06-09] MEDS: PRAVASTATIN SODIUM 20 MG TABLET 40 MG PO (20:26)
[2021-06-09] MEDS: TERAZOSIN HCL 5 MG CAPSULE 10 MG PO (20:27)
[2021-06-09] MEDS: hydroCHLOROthiazide 12.5 MG CAPSULE PO (20:27)
[2021-06-09] MEDS: OLMESARTAN MEDOXOMIL 20 MG TABLET 40 MG PO (20:27)
[2021-06-10] VITALS (7 sets, daily range): BP systolic 141–160; BP diastolic 87–91; PULSE 88–107; RESP 16–20; TEMP 36.1–36.3; O2SAT 93–100
[2021-06-10 05:40] LABS: Hematocrit 38.8 % (42.0-52.0); Hemoglobin 13.6 g/dL (14.0-18.0); Mean Corpuscular HGB Conc 35.1 g/dl (32-36); Mean Corpuscular Hemoglobin 35.6 pg (26-34); Mean Corpuscular Volume 101.6 fl (80-100); Mean Platelet Volume 10.5 fl (7.4-10.4); Platelet Count Result 112 k/mm3 (150-375); Red Blood Count 3.82 M/mm3 (4.6-6.20); Red Cell Distribution Width 12.3 % (11.5-14.5); White Blood Count 6.3 K/mm3 (4.5-10.0)
[2021-06-10 05:52] LABS: Anion Gap 2 mmol/L (8-16); Blood Urea Nitrogen 6 mg/dL (9-20); Calcium 8.1 mg/dL (8.4-10.2); Carbon Dioxide 29 mmol/L (22-30); Chloride 109 mmol/L (98-107); Estimated Glomerular Filt Rate > 60; Glucose 96 mg/dL (65-110); Magnesium 1.5 mg/dL (1.6-2.3); Potassium 3.5 mmol/L (3.4-5.0); Sodium 140 mmol/L (137-145)
[2021-06-10] MEDS: NICOTINE (*PBKC) 21 MG PATCH 1 PATCH TRANSDERM (08:20)
[2021-06-10] MEDS: POTASSIUM CHLORIDE 20 MEQ TABLET.ER 40 MEQ PO (08:21)
[2021-06-10] MEDS: METOPROLOL TARTRATE 50 MG TAB 100 MG PO ×2 (08:21→19:53)
[2021-06-10] MEDS: CHOLECALCIFEROL 1,000 UNITS TABLET 5000 UNITS PO (08:22)
[2021-06-10] MEDS: THIAMINE HCL 100 MG TABLET PO (08:22)
[2021-06-10] MEDS: FUROSEMIDE 40 MG TABLET PO (08:22)
[2021-06-10] MEDS: FOLIC ACID 1 MG TABLET PO (08:22)
[2021-06-10] MEDS: MAGNESIUM OXIDE 400 MG TABLET PO (08:23)
[2021-06-10] MEDS: PANTOPRAZOLE 40 MG TABLET PO (08:23)
--- NOTE | 2021-06-10 09:47 | P.PNIM_ITS ---
Progress Note: A&P Assessment and Plan (1) Fall: Code(s): W19.XXXA - Unspecified fall, initial encounter Status: Acute Assessment and Plan: Patient presents after fall at home with reported loss of consciousness after hitting his head * Details surrounding fall are unclear * Per ED physician, it was reported that family thought maybe he was reaching for something and lost his balance * He was likely intoxicated during this event and it was noted that he had multiple margaritas prior. Ethyl alcohol level 101 on presentation * Fall precautions implemented * Continue PT/OT. Patient noted to be very unsteady and is requiring use of vanesa steady (2) Acute encephalopathy: Code(s): G93.40 - Encephalopathy, unspecified Status: Acute Assessment and Plan: Patients baseline mental status is unclear * He is A&O to self only today * Head CT on presentation showed no acute findings with evidence of chronic bilateral lacunar infarct that was not evident on CT from about 7 months ago * Would like to proceed with MRI however given the patients impulsiveness and restlessness unsure how feasible this would be. Discussed with RN. Will monitor the patient today when he is more alert and then reassess if he will be able to tolerate MRI * May be related to chronic alcohol abuse/alcohol withdrawal * TSH, ammonia, B12, folate are within normal limits * Continue to monitor mental status closely. Consider Neurology consult if worsening (3) Chronic alcohol use: Code(s): Z72.89 - Other problems related to lifestyle Status: Chronic Assessment and Plan: Patient admits to drinking 12 oz of tequila daily * CIWA scores up to 14 yesterday and pt was restless * Today CIWA is 1 * Librium prn withdrawal symptoms * Continue thiamine and folic acid * He will benefit from alcohol cessation education followin improvement of confusion. Would likely benefit from rehab (4) Atrial fibrillation: Code(s): I48.91 - Unspecified atrial fibrillation Status: Chronic Assessment and Plan: EKG on presentation showed atrial fibrillation with rate controlled in the 90s * He has been intermittently tachycardic up to 130. * Likely due to missing metoprolol on admission and rate is improving * Rate controlled on my evaluation * Patient uncooperative with telemetry and therefore was discontinued * Continue metoprolol tartrate 100 mg b.i.d. * Holding Eliquis due to his fall risk. Will need to discuss risks versus benefits of continued anticoagulation (5) Orthostatic hypotension: Code(s): I95.1 - Orthostatic hypotension Status: Acute Assessment and Plan: Patient with history of orthostatic hypotension * 24 point total decline in SBP from supine to standing yesterday * He was rehydrated with gentle IV fluids on presentation * Blood pressures stable today * Patient will not tolerate CARLYLE hose due to his restlessness * Fall precautions as above (6) Chronic anticoagulation: Code(s): Z79.01 - residential (current) use of anticoagulants Status: Acute Assessment and Plan: He is anticoagulated with apixaban due to his history of atrial fibrillation * He is a fall risk given his history of frequent falls and alcohol abuse * Will need to weigh risks versus benefits of continued anticoagulation. * Would like to discuss this with his director of quality, however the patient is unable to identify his director of quality at this time * Noted that he was seen by [facility] Cardiology at this facility in November 2019 at that time was felt to
--- NOTE | 2021-06-10 09:47 | PM.IMPN ---
Progress Note: A&P Assessment and Plan (1) Fall: Code(s): W19.XXXA - Unspecified fall, initial encounter Status: Acute Assessment and Plan: Patient presents after fall at home with reported loss of consciousness after hitting his head Details surrounding fall are unclear Per ED physician, it was reported that family thought maybe he was reaching for something and lost his balance He was likely intoxicated during this event and it was noted that he had multiple margaritas prior. Ethyl alcohol level 101 on presentation Fall precautions implemented Continue PT/OT. Patient noted to be very unsteady and is requiring use of vanesa steady (2) Acute encephalopathy: Code(s): G93.40 - Encephalopathy, unspecified Status: Acute Assessment and Plan: Patients baseline mental status is unclear He is A&O to self only today Head CT on presentation showed no acute findings with evidence of chronic bilateral lacunar infarct that was not evident on CT from about 7 months ago Would like to proceed with MRI however given the patients impulsiveness and restlessness unsure how feasible this would be. Discussed with RN. Will monitor the patient today when he is more alert and then reassess if he will be able to tolerate MRI May be related to chronic alcohol abuse/alcohol withdrawal TSH, ammonia, B12, folate are within normal limits Continue to monitor mental status closely. Consider Neurology consult if worsening (3) Chronic alcohol use: Code(s): Z72.89 - Other problems related to lifestyle Status: Chronic Assessment and Plan: Patient admits to drinking 12 oz of tequila daily CIWA scores up to 14 yesterday and pt was restless Today CIWA is 1 Librium prn withdrawal symptoms Continue thiamine and folic acid He will benefit from alcohol cessation education followin improvement of confusion. Would likely benefit from rehab (4) Atrial fibrillation: Code(s): I48.91 - Unspecified atrial fibrillation Status: Chronic Assessment and Plan: EKG on presentation showed atrial fibrillation with rate controlled in the 90s He has been intermittently tachycardic up to 130. Likely due to missing metoprolol on admission and rate is improving Rate controlled on my evaluation Patient uncooperative with telemetry and therefore was discontinued Continue metoprolol tartrate 100 mg b.i.d. Holding Eliquis due to his fall risk. Will need to discuss risks versus benefits of continued anticoagulation (5) Orthostatic hypotension: Code(s): I95.1 - Orthostatic hypotension Status: Acute Assessment and Plan: Patient with history of orthostatic hypotension 24 point total decline in SBP from supine to standing yesterday He was rehydrated with gentle IV fluids on presentation Blood pressures stable today Patient will not tolerate CARLYLE hose due to his restlessness Fall precautions as above (6) Chronic anticoagulation: Code(s): Z79.01 - detention (current) use of anticoagulants Status: Acute Assessment and Plan: He is anticoagulated with apixaban due to his history of atrial fibrillation He is a fall risk given his history of frequent falls and alcohol abuse Will need to weigh risks versus benefits of continued anticoagulation. Would like to discuss this with his conical mixer, however the patient is unable to identify his conical mixer at this time Noted that he was seen by [facility] Cardiology at this facility in November 2019 at that time was felt to be a poor candidate for anticoagulation due to falls and alcohol abuse HAS-BLED score is 3 CHADS2-VASC score is 5 Holding apixaban at this time (7) Tobacco abuse: Code(s): Z72.0 - Tobacco use Status: Acute Assessment and Plan: Patient smokes 1 pack per day Nicotine patch 21 mg Will need to educate the patient on smoking cessation when his confusion has improved (8) Hypok
[2021-06-10] MEDS: MAGNESIUM SULF 2 GM/WATER 50ML 2 GM/50 ML BAG IVPB (11:20)
--- NOTE | 2021-06-10 18:41 | PC.NURSE ---
Patient witnessed to be coughing and gurgling while drinking thin water. He hasn't been witnessed having any problems with food or with meds in applesauce. Hospitalist notified and patient placed NPO with meds pending QUALITY CONTROL DIRECTOR eval.
[2021-06-10] MEDS: POTASSIUM CHLORIDE 20 MEQ TABLET.ER PO (19:08)
[2021-06-10] MEDS: TERAZOSIN HCL 5 MG CAPSULE 10 MG PO (19:52)
[2021-06-10] MEDS: OLMESARTAN MEDOXOMIL 20 MG TABLET 40 MG PO (19:53)
[2021-06-10] MEDS: hydroCHLOROthiazide 12.5 MG CAPSULE PO (19:53)
[2021-06-10] MEDS: PRAVASTATIN SODIUM 20 MG TABLET 40 MG PO (19:53)
[2021-06-10] MEDS: chlordiazePOXIDE (*CRX) 25 MG CAPSULE 50 MG PO (19:54)
[2021-06-11] VITALS (7 sets, daily range): BP systolic 136–171; BP diastolic 77–102; PULSE 58–103; RESP 18–20; TEMP 36.1–36.3; O2SAT 99–100
[2021-06-11] MEDS: LORazepam (*CRX) 1 MG TABLET PO (01:00)
[2021-06-11 05:20] LABS: Hematocrit 39.6 % (42.0-52.0); Hemoglobin 13.8 g/dL (14.0-18.0); Mean Corpuscular HGB Conc 34.8 g/dl (32-36); Mean Corpuscular Hemoglobin 35.2 pg (26-34); Mean Platelet Volume 10.9 fl (7.4-10.4); Platelet Count Result 122 k/mm3 (150-375); Red Blood Count 3.92 M/mm3 (4.6-6.20); Red Cell Distribution Width 12.4 % (11.5-14.5); White Blood Count 6.3 K/mm3 (4.5-10.0)
[2021-06-11 05:32] LABS: Anion Gap 3 mmol/L (8-16); Blood Urea Nitrogen 9 mg/dL (9-20); Calcium 8.6 mg/dL (8.4-10.2); Carbon Dioxide 27 mmol/L (22-30); Chloride 109 mmol/L (98-107); Estimated Glomerular Filt Rate > 60; Glucose 99 mg/dL (65-110); Magnesium 1.8 mg/dL (1.6-2.3); Potassium 3.7 mmol/L (3.4-5.0); Sodium 139 mmol/L (137-145)
[2021-06-11] MEDS: PANTOPRAZOLE 40 MG TABLET PO (09:04)
[2021-06-11] MEDS: NICOTINE (*PBKC) 21 MG PATCH 1 PATCH TRANSDERM (09:04)
[2021-06-11] MEDS: METOPROLOL TARTRATE 50 MG TAB 100 MG PO (09:05)
[2021-06-11] MEDS: FOLIC ACID 1 MG TABLET PO (09:06)
[2021-06-11] MEDS: POTASSIUM CHLORIDE 20 MEQ TABLET.ER PO (09:06)
[2021-06-11] MEDS: CHOLECALCIFEROL 1,000 UNITS TABLET 5000 UNITS PO (09:06)
[2021-06-11] MEDS: MAGNESIUM OXIDE 400 MG TABLET PO (09:07)
[2021-06-11] MEDS: THIAMINE HCL 100 MG TABLET PO (09:07)
[2021-06-11] MEDS: FUROSEMIDE 40 MG TABLET PO (09:07)
--- NOTE | 2021-06-11 10:36 | P.PNIM_ITS ---
Progress Note: A&P Assessment and Plan (1) Fall: Code(s): W19.XXXA - Unspecified fall, initial encounter Status: Acute Assessment and Plan: Patient presents after fall at home with reported loss of consciousness after hitting his head * Details surrounding fall are unclear * Per ED physician, it was reported that family thought maybe he was reaching for something and lost his balance * He was likely intoxicated during this event and it was noted that he had multiple margaritas prior. Ethyl alcohol level 101 on presentation * Fall precautions implemented * Continue PT/OT. Patient noted to be very unsteady and is requiring use of vanesa steady. He was able to transfer yesterday but not able to take steps due to poor balance (2) Acute encephalopathy: Code(s): G93.40 - Encephalopathy, unspecified Status: Acute Assessment and Plan: Patients baseline mental status is unclear * He is A&O to self only today * Head CT on presentation showed no acute findings with evidence of chronic bilateral lacunar infarct that was not evident on CT from about 7 months ago * MRI ordered today for further evaluation. Unable to performed yesterday due to restlessness. * If unable to perform MRI due to agitation, will repeat head CT * May be related to chronic alcohol abuse/alcohol withdrawal * TSH, ammonia, B12, folate are within normal limits * Continue to monitor mental status closely. (3) Chronic alcohol use: Code(s): Z72.89 - Other problems related to lifestyle Status: Chronic Assessment and Plan: Patient admits to drinking 12 oz of tequila daily * CIWA scores past 12 hours ranging 5-12 * Librium prn withdrawal symptoms * Continue thiamine and folic acid * Will need alcohol cessation education following improvement of confusion. Would likely benefit from rehab (4) Atrial fibrillation: Code(s): I48.91 - Unspecified atrial fibrillation Status: Chronic Assessment and Plan: EKG on presentation showed atrial fibrillation with rate controlled in the 90s * He was intermittently tachycardic up to 130 likely due to missing metoprolol. * Rate is controlled at this time * Patient uncooperative with telemetry and therefore was discontinued * Continue metoprolol tartrate 100 mg b.i.d. * Holding Eliquis due to his fall risk. Will need to discuss risks versus benefits of continued anticoagulation when patient is more alert (5) Orthostatic hypotension: Code(s): I95.1 - Orthostatic hypotension Status: Acute Assessment and Plan: Patient with history of orthostatic hypotension * 24 point total decline in SBP from supine to standingon 3 * He was rehydrated with gentle IV fluids on presentation * Blood pressures stable today * Fall precautions as above (6) Chronic anticoagulation: Code(s): Z79.01 - [facility] (current) use of anticoagulants Status: Acute Assessment and Plan: He is anticoagulated with apixaban due to his history of atrial fibrillation * He is a fall risk given his history of frequent falls and alcohol abuse * Will need to weigh risks versus benefits of continued anticoagulation. * Would like to discuss this with his cashier office, however the patient is unable to identify his cashier office at this time * Noted that he was seen by [facility] Cardiology at this facility in November 2019 at that time was felt to be a poor candidate for anticoagulation due to falls and alcohol abuse * HAS-BLED score is 3 * CHADS2-VASC score is 5 * Holding apixaban at this time (7)
--- NOTE | 2021-06-11 10:36 | PM.IMPN ---
Progress Note: A&P Assessment and Plan (1) Fall: Code(s): W19.XXXA - Unspecified fall, initial encounter Status: Acute Assessment and Plan: Patient presents after fall at home with reported loss of consciousness after hitting his head Details surrounding fall are unclear Per ED physician, it was reported that family thought maybe he was reaching for something and lost his balance He was likely intoxicated during this event and it was noted that he had multiple margaritas prior. Ethyl alcohol level 101 on presentation Fall precautions implemented Continue PT/OT. Patient noted to be very unsteady and is requiring use of vanesa steady. He was able to transfer yesterday but not able to take steps due to poor balance (2) Acute encephalopathy: Code(s): G93.40 - Encephalopathy, unspecified Status: Acute Assessment and Plan: Patients baseline mental status is unclear He is A&O to self only today Head CT on presentation showed no acute findings with evidence of chronic bilateral lacunar infarct that was not evident on CT from about 7 months ago MRI ordered today for further evaluation. Unable to performed yesterday due to restlessness. If unable to perform MRI due to agitation, will repeat head CT May be related to chronic alcohol abuse/alcohol withdrawal TSH, ammonia, B12, folate are within normal limits Continue to monitor mental status closely. (3) Chronic alcohol use: Code(s): Z72.89 - Other problems related to lifestyle Status: Chronic Assessment and Plan: Patient admits to drinking 12 oz of tequila daily CIWA scores past 12 hours ranging 5-12 Librium prn withdrawal symptoms Continue thiamine and folic acid Will need alcohol cessation education following improvement of confusion. Would likely benefit from rehab (4) Atrial fibrillation: Code(s): I48.91 - Unspecified atrial fibrillation Status: Chronic Assessment and Plan: EKG on presentation showed atrial fibrillation with rate controlled in the 90s He was intermittently tachycardic up to 130 likely due to missing metoprolol. Rate is controlled at this time Patient uncooperative with telemetry and therefore was discontinued Continue metoprolol tartrate 100 mg b.i.d. Holding Eliquis due to his fall risk. Will need to discuss risks versus benefits of continued anticoagulation when patient is more alert (5) Orthostatic hypotension: Code(s): I95.1 - Orthostatic hypotension Status: Acute Assessment and Plan: Patient with history of orthostatic hypotension 24 point total decline in SBP from supine to standingon 3/ He was rehydrated with gentle IV fluids on presentation Blood pressures stable today Fall precautions as above (6) Chronic anticoagulation: Code(s): Z79.01 - terminal supervisor (current) use of anticoagulants Status: Acute Assessment and Plan: He is anticoagulated with apixaban due to his history of atrial fibrillation He is a fall risk given his history of frequent falls and alcohol abuse Will need to weigh risks versus benefits of continued anticoagulation. Would like to discuss this with his email marketing processor, however the patient is unable to identify his email marketing processor at this time Noted that he was seen by [facility] Cardiology at this facility in November 2019 at that time was felt to be a poor candidate for anticoagulation due to falls and alcohol abuse HAS-BLED score is 3 CHADS2-VASC score is 5 Holding apixaban at this time (7) Tobacco abuse: Code(s): Z72.0 - Tobacco use Status: Acute Assessment and Plan: Patient smokes 1 pack per day Nicotine patch 21 mg Will need to educate the patient on smoking cessation when his confusion has improved however at this time more prudent to focus on alcohol cessation (8) Hypokalemia: Code(s): E87.6 - Hypokalemia Status: Acute Assessment and Plan: Resolve
--- NOTE | 2021-06-11 10:49 | PCSTNOTE ---
Attempted bedside swallow evaluation, treating RN Chaim was present attempting to provide medication to the patient. He requested that I return later as the patient was given medication causing lethargy. Will attempt bedside swallow evaluation 1x more this date.
--- NOTE | 2021-06-11 12:53 | PCOTNOTE ---
Attempted to see pt for occupational therapy tx at 11:23am, however pt was unavailable due to just leaving for a MRI. Due to pt being the last one for the day, will continue per poc duration/frequency tomorrow.
--- NOTE | 2021-06-11 12:58 | PCPTNOTE ---
The patient treatment was not able to be completed on 06/11/21 due to patient going down for C-scan. Will plan to continue treatment per plan of care.
[2021-06-11 13:14] LABS: Partial Thromboplastin Time 28.6 SECONDS (22.3-36.8); Prothrombin Time 12.9 Seconds (11.1-14.7)
[2021-06-11 13:30] LABS: Fibrinogen 319 mg/dl (215-510)
--- NOTE | 2021-06-11 13:39 | PCSTNOTE ---
Called treating RN Chaim to attempt bedside swallow evaluation 1x more; cancelled order for bedside swallow evaluation due to RN request as the patient is transferring to [facility] ICU. Should patient stay, ST evaluation will be reordered.
[2021-06-11] MEDS: SODIUM CHLORIDE 0.9% IV 1,000 ML 100 ML IV CONT (14:06)
[2021-06-11] MEDS: chlordiazePOXIDE (*CRX) 25 MG CAPSULE 50 MG PO (14:47)
[2021-06-11] MEDS: hydrALAZINE HCL 20 MG/ML VIAL 10 MG IV PUSH (14:47)
[2021-06-11 15:01] LABS: EDCOVIDSCREEN Negative (Negative)
--- NOTE | 2021-06-11 16:30 | PC.NURSE ---
Addendum entered by Clarence Goetz RN 06/11/21 17:01: Jody Escobedo returned the call at approx: 1630 and report was given. Patient will be transferred to [facility] to their Neuro [id number] unit in bed [id number]. Family notified and consent given by spouse due to patient neuro status. 2 RN witnessed and signed consent. Original Note: RN was informed by transfer center that a Bed was assigned for the patient at [place] on floor [address]. RN promptly called report and spoke with Jody NOLASCO who informed this RN that the bed was incorrectly assigned, she then asked for a call back number and said they would be working on getting the patient an appropriate bed. She also informed this RN they would call back either way regarding the bed. The call occurred at approximately 1608
--- NOTE | 2021-06-12 07:31 | P.TS_ITS ---
Transfer Discharge Sum: Prov Provider Date of admission: 06/11/21 13:38 Primary care physician: Jean-Claude Crawford MD Admitting clinician: Freedom Wang MD DS: Admitting Diagnosis Discharge Date 06/11/21 Admitting Diagnosis Fall, confusion DS: Discharge Diagnosis Discharge Diagnosis (1) Intracerebral hemorrhage: Code(s): I61.9 - Nontraumatic intracerebral hemorrhage, unspecified Status: Acute Assessment and Plan: Head CT on presentation negative for acute findings * MRI on 06/11/2021 showed small volume of dependent hematoma in the occipital horns of the lateral ventricles * Repeat head CT performed at request of [facility] neurosurgery also showed acute hematoma * Patient had been anticoagulated on Eliquis. Last dose was prior to admission on 06/08/21 * He was transferred to [facility] neurosurgery service, admitting physician is Dr. Latif, on 06/11/21 (2) Fall: Code(s): W19.XXXA - Unspecified fall, initial encounter Status: Acute Assessment and Plan: Patient presents after fall at home with reported loss of consciousness after hitting his head * Details surrounding fall are unclear * Per ED physician, it was reported that family thought maybe he was reaching for something and lost his balance * He was likely intoxicated during this event and it was noted that he had multiple margaritas prior. Ethyl alcohol level 101 on presentation * Fall precautions implemented * Participated in PT/OT; noted to be very unsteady and not able to ambulate (3) Acute encephalopathy: Code(s): G93.40 - Encephalopathy, unspecified Status: Acute Assessment and Plan: Patients baseline mental status is unclear * A&O to self only during admission * Head CT on presentation showed no acute findings with evidence of chronic bilateral lacunar infarct * Most likely related to chronic alcohol abuse/alcohol withdrawal * TSH, ammonia, B12, folate are within normal limits (4) Chronic alcohol use: Code(s): Z72.89 - Other problems related to lifestyle Status: Chronic Assessment and Plan: Patient admits to drinking 12 oz of tequila daily * Patient was restless, agitated, and did appear to have some visual hallucinations * CIWA protocol initiated * Librium provided as needed for withdrawal symptoms * Continue thiamine and folic acid * The patient will benefit from rehab for alcohol cessation (5) Atrial fibrillation: Code(s): I48.91 - Unspecified atrial fibrillation Status: Chronic Assessment and Plan: EKG on presentation showed atrial fibrillation with rate controlled in the 90s * He was initially tachycardic up to 130 likely due to missing metoprolol. This resolved and rate subsequently was controlled * Continue metoprolol tartrate 100 mg b.i.d. * Eliquis was held during admission. 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
--- NOTE | 2021-06-12 07:31 | PM.TDS ---
Transfer Discharge Sum: Prov Provider Date of admission: 06/11/21 13:38 Primary care physician: Jean-Claude Crawford MD Admitting clinician: Freedom Wang MD DS: Admitting Diagnosis Discharge Date 06/11/21 Admitting Diagnosis Fall, confusion DS: Discharge Diagnosis Discharge Diagnosis (1) Intracerebral hemorrhage: Code(s): I61.9 - Nontraumatic intracerebral hemorrhage, unspecified Status: Acute Assessment and Plan: Head CT on presentation negative for acute findings MRI on 06/11/2021 showed small volume of dependent hematoma in the occipital horns of the lateral ventricles Repeat head CT performed at request of [facility] neurosurgery also showed acute hematoma Patient had been anticoagulated on Eliquis. Last dose was prior to admission on 06/08/21 He was transferred to [facility] neurosurgery service, admitting physician is Dr. Laitf, on 06/11/21 (2) Fall: Code(s): W19.XXXA - Unspecified fall, initial encounter Status: Acute Assessment and Plan: Patient presents after fall at home with reported loss of consciousness after hitting his head Details surrounding fall are unclear Per ED physician, it was reported that family thought maybe he was reaching for something and lost his balance He was likely intoxicated during this event and it was noted that he had multiple margaritas prior. Ethyl alcohol level 101 on presentation Fall precautions implemented Participated in PT/OT; noted to be very unsteady and not able to ambulate (3) Acute encephalopathy: Code(s): G93.40 - Encephalopathy, unspecified Status: Acute Assessment and Plan: Patients baseline mental status is unclear A&O to self only during admission Head CT on presentation showed no acute findings with evidence of chronic bilateral lacunar infarct Most likely related to chronic alcohol abuse/alcohol withdrawal TSH, ammonia, B12, folate are within normal limits (4) Chronic alcohol use: Code(s): Z72.89 - Other problems related to lifestyle Status: Chronic Assessment and Plan: Patient admits to drinking 12 oz of tequila daily Patient was restless, agitated, and did appear to have some visual hallucinations CIWA protocol initiated Librium provided as needed for withdrawal symptoms Continue thiamine and folic acid The patient will benefit from rehab for alcohol cessation (5) Atrial fibrillation: Code(s): I48.91 - Unspecified atrial fibrillation Status: Chronic Assessment and Plan: EKG on presentation showed atrial fibrillation with rate controlled in the 90s He was initially tachycardic up to 130 likely due to missing metoprolol. This resolved and rate subsequently was controlled Continue metoprolol tartrate 100 mg b.i.d. Eliquis was held during admission. (6) Orthostatic hypotension: Code(s): I95.1 - Orthostatic hypotension Status: Acute Assessment and Plan: Patient with history of orthostatic hypotension 24 point total decline in SBP from supine to standingon 3/3 He was rehydrated with gentle IV fluids on presentation Blood pressures subsequently stable Fall precautions implemented as above (7) Chronic anticoagulation: Code(s): Z79.01 - nursing home (current) use of anticoagulants Status: Acute Assessment and Plan: He is on chronic anticoagulation with apixaban due to his history of atrial fibrillation He is a fall risk given his history of frequent falls and alcohol abuse Noted that he was seen by [facility] Cardiology at this facility in November 2019 at that time was felt to be a poor candidate for anticoagulation due to falls and alcohol abuse HAS-BLED score is 3 CHADS2-VASC score is 5 Eliquis held during admission Will need to be discontinued in light of ICH (8) Tobacco abuse: Code(s): Z72.0 - Tobacco use Status: Acute Assessment and Plan: Patient smokes 1 pack per day Nicotine
--- NOTE | 2021-06-12 11:43 | WPDNEUROLOGY ---
Neurology EEG Report General Information Date of Study: 06/09/21 TEST eeg
--- NOTE | 2021-06-12 12:19 | WPDNEUROLOGY ---
Neurology EEG Report General Information Date of Study: 06/09/21 TEST eeg DIAGNOSIS altered mental status with involuntary movements CONDITION OF RECORDING drowsy and sleep EEG NUMBER [id number] CLINICAL HISTORY patient unable to give any history he was unable to even giving his last name or birthday EEG DESCRIPTION basic resting occipital frequency consists of low to medium voltage 8 to 10 hertz per 2nd alpha admixed with low-voltage 15 to 18 hertz per 2nd beta. During drowsiness low-voltage beta activity seen diffusely admixed with waxing and waning poorly organized posterior alpha rhythm. Hyperventilation not done. Photic stimulation not done. Bilateral symmetrical sleep activity seen during sleep. Non paroxysmal. Nonfocal. Nonlateralizing. IMPRESSION No evidence of any electrical seizures and the EEG otherwise is not significant.
== END 2021-06-11 18:15 | disposition short-term general hospital (02) | DRG 83 ==
LOC: ANHED 21:47 → ANH3MEDSUR 22:36
PROVIDERS: Physician Assistant; Admitting Provider Internal Medicine; Emergency Provider Emergency Medicine; PCP Family Medicine; Visit Provider Family Medicine
DX: S06.369A Traumatic hemorrhage of cerebrum, unspecified, with loss of consciousness of unspecified duration, initial encounter (principal); G93.40 Encephalopathy, unspecified; I50.22 Chronic systolic (congestive) heart failure; F10.139 Alcohol abuse with withdrawal, unspecified; I11.0 Hypertensive heart disease with heart failure; W19.XXXA Unspecified fall, initial encounter; Z20.822 Contact with and (suspected) exposure to COVID-19; R25.9 Unspecified abnormal involuntary movements; R13.10 Dysphagia, unspecified; I95.1 Orthostatic hypotension; D64.9 Anemia, unspecified; E78.5 Hyperlipidemia, unspecified; E87.6 Hypokalemia; E55.9 Vitamin D deficiency, unspecified; H55.00 Unspecified nystagmus; H54.7 Unspecified visual loss; I48.91 Unspecified atrial fibrillation; J44.9 Chronic obstructive pulmonary disease, unspecified; F41.9 Anxiety disorder, unspecified; F17.210 Nicotine dependence, cigarettes, uncomplicated; N40.0 Benign prostatic hyperplasia without lower urinary tract symptoms; K21.9 Gastro-esophageal reflux disease without esophagitis; R29.6 Repeated falls; Y90.5 Blood alcohol level of 100-119 mg/100 ml; Z98.41 Cataract extraction status, right eye; Z79.01 Long term (current) use of anticoagulants; Z98.42 Cataract extraction status, left eye; Z90.49 Acquired absence of other specified parts of digestive tract; Z88.0 Allergy status to penicillin; Z86.73 Personal history of transient ischemic attack (TIA), and cerebral infarction without residual deficits
CPT/HCPCS: 36415; 70450; 70551; 71045; 80048; 80053; 80307; 81003; 82140; 82607; 82746; 82948; 83735; 85025; 85027; 85384; 85610; 85730; 87426; 93005; 95816; 96372; 96374; 96375; 96376; 97161; 97166; 99285; A9270; C9803; G0378; J0360; J1953; J3411; J3475; J3480; J7030; J7040; J7042

== ENCOUNTER 2022-06-06 17:54 | Emergency (ER) | payer MEDICARE, SELFPAY ==
[2022-06-06] VITALS (28 sets, daily range): BP systolic 108–137; BP diastolic 71–92; PULSE 72–95; RESP 17–24; TEMP 36.5–36.6; O2SAT 94–100
--- NOTE | ~2022-06-06 | XR_ITS ---
EXAMINATION: XR chest 1V portable INDICATION: Cough and shortness of breath TECHNIQUE: Portable AP chest at 1840 hours COMPARISON: 06/08/2021 FINDINGS: There are minimal airspace opacities of the left lung base. No pleural effusion or pneumoth orax. The cardiomediastinal silhouette is normal. IMPRESSION: 1. Left basilar airspace opacity, consistent with atelectasis versus pneumonia. Reviewed, dictated and finalized at location F. ER HAND
--- NOTE | 2022-06-06 18:04 | ECG_ITS ---
Measurements Intervals [place] Rate: 78 P: NH: 0 QRS: 15 QRSD: 81 T: 17 QT: 378 QTc: 433 Interpretive Statements ATRIAL FIBRILLATION LOW QRS VOLTAGE IN PRECORDIAL LEADS MINIMAL Q WAVES- INFERIOR LEADS ANTEROSEPTAL INFARCT, AGE INDETERMINATE BASELINE WANDER- II, III, V3-V5 ABNORMAL ECG COMPARED TO ECG 06/08/2021 21:13:03 MYOCARDIAL INFARCT FINDING NOW PRESENT Electronically Signed On 06-08-2022 8:25:58 LEAK DETECTION ENGINEER by Michael Cedeno D.O.
--- NOTE | 2022-06-06 18:13 | ED.SOB ---
HPI - SOB/Dyspnea General Chief Complaint: Shortness of Breath/Dyspnea Stated Complaint: dyspnea Time Seen by Provider: 06/06/22 18:09 History of Present Illness HPI Narrative: Patient is a 72-year-old male with a history of COPD, A-fib on Eliquis, CHF, hypertension, hyperlipidemia presenting with increased work of breathing. Patient resides in a nursing facility and was noted to have a cough and look to be working harder to breathe than normal so he was sent in for a checkup . Patient denies complaints. He states that he does sometimes cough and sometimes he feels short of breath but he feels that these are chronic problems. He denies any chest pain, abdominal pain, nausea or vomiting, lightheadedness, numbness or weakness, fevers or chills, sore throat. Related Data Home Medications Medication Instructions Recorded Confirmed thiamine HCl (vitamin B1) 100 mg 100 mg PO DAILY 02/26/20 06/09/21 tablet cholecalciferol (vitamin D3) 125 125 mcg PO DAILY 03/28/20 06/09/21 mcg (5,000 unit) capsule metoprolol tartrate 50 mg tablet 100 mg PO Q12HR 01/25/21 06/09/21 furosemide 40 mg tablet 40 mg PO DAILY 06/09/21 06/09/21 loperamide 2 mg capsule 2 mg PO DAILY 06/09/21 06/09/21 multivitamin with minerals 1 tablet PO DAILY 06/09/21 06/09/21 olmesartan 40 1 tablet PO HS 06/09/21 06/09/21 mg-hydrochlorothiazide 12.5 mg tablet pravastatin 40 mg tablet 40 mg PO HS 06/09/21 06/09/21 terazosin 10 mg capsule 10 mg PO HS 06/09/21 06/09/21 Allergies Allergy/AdvReac Type Severity Reaction Status Date / Time Penicillins Allergy Severe Hives / Verified 01/25/21 15:02 Red Face Review of Systems Review of Systems: All systems reviewed & are unremarkable except as noted in HPI and below PMFSH Past Medical History Medical History Acute cholecystitis 07/2019 treated with antibiotic therapy, no cholecystectomy due to being a poor surgical candidate. 10/08/2019 - returned to hospital with intra-abdominal abscess in the gallbladder fossa and extending around liver - thought to be related to gallbladder perforation. Treated with antibiotics and percutaneous drainage x 3. Alcohol abuse Anxiety Atrial fibrillation BPH (benign prostatic hyperplasia) CHF (congestive heart failure) Echocardiogram on 10/20/19 showing EF 55-60% with variable contractility due to atrial fibrillation. Aortic valve sclerosis without hemodynamically significant stenosis by Doppler. Trace TR, moderate pulmonary hypertension. Small circumferential pericardial effusion. Chronic anemia COPD (chronic obstructive pulmonary disease) Essential hypertension GERD (gastroesophageal reflux disease) Histoplasmosis Retinal histoplasmosis and very poor vision History of BPH History of TIAs Hyperlipidemia Vitamin D deficiency Surgical History Surgical History History of bilateral cataract extraction History of vasectomy Male circumcision S/P cholecystectomy Family History Family History Sibling Polio Father Lung cancer Mother Hypertension Social History Social History Social History: His paperwork says he is from at [facility]. The patient was where which facility came from this time. Patient was drinking (3) 4 oz drinks of Tequila a day prior to his hospitalization in July. He was recently hospitalized for a month and discharged to [facility] on 11/09/19 from [place]. Primary care physician: Dr. Jean-Claude Crawford Code status: Full code. Surrogate decision maker is Raine phone number [phone]. The patient has 2 children. 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 Smoking packs per day: 1 Smoking cigarettes per day: 20.0 Years smoked: 56 Smoking pack-years: 56.00 Smoking status:
--- NOTE | 2022-06-06 18:34 | ECG_ITS ---
Measurements Intervals [place] Rate: 84 P: [place]: 0 QRS: 25 QRSD: 84 T: 1 QT: 345 QTc: 408 Interpretive Statements ATRIAL FIBRILLATION NONSPECIFIC T-WAVE ABNORMALITY- INFERIOR LEADS BASELINE ARTIFACT- I, III, AVL, AVF ABNORMAL ECG COMPARED TO ECG 06/08/2021 21:13:03 NO SIGNIFICANT CHANGES Electronically Signed On 06-07-2022 6:33:01 OUT PATIENT THERAPIST by Michael Cedeno D.O.
[2022-06-06] MEDS: ALBUTEROL SULFATE NEB 2.5 MG/3 ML INH 5 MG INHALATION (18:42)
[2022-06-06 19:08] LABS: Alanine Aminotransferase 12 U/L (6-50); Albumin Level 3.2 g/dL (3.5-5.1); Alkaline Phosphatase 73 U/L (38-126); Anion Gap 5 mmol/L (8-16); Aspartate Amino Transferase 16 U/L (17-59); Bilirubin,Total 0.5 mg/dL (0.2-1.3); Blood Urea Nitrogen 13 mg/dL (9-20); Carbon Dioxide 27 mmol/L (22-30); Chloride 105 mmol/L (98-107); Estimated CRCL calculation 79 ml/min; Estimated Glomerular Filt Rate > 60; Glucose 130 mg/dL (65-110); Potassium 3.5 mmol/L (3.4-5.0); Sodium 137 mmol/L (137-145)
[2022-06-06 19:10] LABS: Basophils Percent Auto 0.5 % (0.2-1.2); Eosinophils Absolute Auto 0.1 K/mm3 (0-0.3); Eosinophils Percent Auto 2.1 % (0-4.4); Hematocrit 36.1 % (42.0-52.0); Hemoglobin 11.9 g/dL (14.0-18.0); Immature Granulocyte Absolute 0.02 K/mm3 (0.00-0.031); Immature Granulocyte Percent A 0.3 % (0-0.5); Immature Platelet Fraction Pct 4.1 % (0.9-11.2); Lymphocytes Absolute Auto 1.09 K/mm3 (0.9-3.2); Lymphocytes Percent Auto 18.9 % (18.3-44.2); Mean Corpuscular Hemoglobin 32.9 pg (26-34); Mean Corpuscular Volume 99.7 fl (80-100); Mean Platelet Volume 10.9 fl (7.4-10.4); Monocytes Absolute Auto 0.5 K/mm3 (0.1-0.6); Neutrophils Percent Auto 69.2 % (45.5-73.1); Platelet Count Result 109 k/mm3 (150-375); Red Blood Count 3.62 M/mm3 (4.6-6.20); Red Cell Distribution Width 13.2 % (11.5-14.5); White Blood Count 5.8 K/mm3 (4.5-10.0)
[2022-06-06 19:19] LABS: NT Pro B Type Natriuretic Pept 2170 pg/mL (19.9-100); Troponin I < 0.012 ng/mL (0.000-0.034)
[2022-06-06 19:34] LABS: Influenza A QL RT-PCR Negative (Negative); Influenza B QL RT-PCR Negative (Negative); RSV RNA, RT-PCR Negative (Negative); SARS-CoV-2 RNA PCR Negative
[2022-06-06] MEDS: DOXYCYCLINE 100 MG/NS 100 ML 100 MG/100 ML BAG IVPB (20:15)
--- NOTE | 2022-06-06 21:21 | PC.NURSE ---
Daughter called for update on pt. status. All questions and concerns were addressed at this time.
--- NOTE | 2022-06-06 22:19 | PC.NURSE ---
Report called to GAURAV Harris at [facility]
--- NOTE | 2022-06-06 22:19 | PC.NURSE ---
Report given to transport, [facility]
--- NOTE | 2022-06-07 11:52 | PC.NURSE ---
Pharmacy called questioning Rx for antibiotic since pt. lists PCN as an allergy; Mirna Fox review chart and okayed Rx given what pt. had received in the ED.
== END 2022-06-06 22:30 ==
PROVIDERS: Emergency Provider Emergency Medicine; PCP Family Medicine
DX: J44.0 Chronic obstructive pulmonary disease with (acute) lower respiratory infection (principal); J18.9 Pneumonia, unspecified organism; I48.91 Unspecified atrial fibrillation; I11.0 Hypertensive heart disease with heart failure; I50.9 Heart failure, unspecified; E78.5 Hyperlipidemia, unspecified; N40.0 Benign prostatic hyperplasia without lower urinary tract symptoms; D64.9 Anemia, unspecified; K21.9 Gastro-esophageal reflux disease without esophagitis; E55.9 Vitamin D deficiency, unspecified; Z86.73 Personal history of transient ischemic attack (TIA), and cerebral infarction without residual deficits; B39.9 Histoplasmosis, unspecified; F41.9 Anxiety disorder, unspecified; Z79.01 Long term (current) use of anticoagulants; Z87.891 Personal history of nicotine dependence; Z20.822 Contact with and (suspected) exposure to COVID-19
CPT/HCPCS: 36415; 71045; 80053; 83880; 84484; 85025; 85055; 87637; 93005; 94640; 96365; 96367; 99284; J0696

== ENCOUNTER 2022-07-28 20:31 | Emergency (ER) | payer MEDICARE, SELFPAY ==
[2022-07-28] VITALS (12 sets, daily range): BP systolic 117–146; BP diastolic 79–108; PULSE 81–103; RESP 16–20; TEMP 37; O2SAT 97–100
--- NOTE | ~2022-07-28 | CT_ITS ---
EXAMINATION: CT brain wo con DATE: 07/28/2022 21:31 INDICATION: fall, head trauma . TECHNIQUE: Computed tomography (CT) of the head was performed without intravenous contrast. The mA wa s adjusted according to patient size. Iterative reconstruction technique was employed. The dose-lengt h product was 681.00 mGy-cm. COMPARISON: 06/11/2021. FINDINGS: No acute intracranial hemorrhage or extra-axial fluid collection. No hydrocephalus, mass, or herniation. No acute ischemic infarct. Unremarkable dural venous sinus attenuation. Nondisplaced fractures of the right lateral maxillary and orbital hernandez. The zygomatic arch appears t o be intact. The orbital floor also appears to be intact. Air-fluid level and aerated secretions in the right maxillary sinus, the remaining aerated spaces are clear. Moderate atrophy and chronic white matter change. Atherosclerotic intracranial calcification. Bilater al lens replacements. Soft tissue contusions over the right cheek and left posterior scalp near the v ertex. Old bilateral lacunar infarcts. Periodontal disease. IMPRESSION: No acute intracranial process. Nondisplaced fractures of the right lateral orbital and maxillary wall s, with small volume right maxillary sinus hemorrhage. Consider CT of the face for further evaluation . Reviewed, dictated and finalized at location K. IMPRESSION: No acute intracranial process. Nondisplaced fractures of the right lateral orbi demar and maxillary hernandez, with small volume right maxillary sinus hemorrhage. Co nsider CT of the face for further evaluation.
--- NOTE | ~2022-07-28 | CT_ITS ---
EXAMINATION: CT facial bones wo con DATE: 07/28/2022 22:40 INDICATION: Facial fracture on CT, head injury TECHNIQUE: Computed tomography (CT) of the facial bones and maxillofacial region was performed withou t intravenous contrast. The dose-length product (DLP) was 307.42 mGy-cm. Automated exposure control a nd iterative reconstruction technique were employed. COMPARISON: Head CT of the same date FINDINGS: There is an acute, comminuted fracture in the lateral wall of the right maxillary sinus. Th ere is minimal hemorrhagic opacification dependently in the right maxillary sinus. There also appears to be a fracture of the lateral wall of the right orbit. No additional facial fracture is identified . Multiple dental caries are noted. Changes in the globes are likely from ocular lens surgery. IMPRESSION: 1. Acute fracture of the lateral wall of the right maxillary sinus and probable lateral wall fracture of the right orbit. Reviewed, dictated and finalized at location A.
--- NOTE | ~2022-07-28 | CT_ITS ---
EXAMINATION: CT cervical spine wo con DATE: 07/28/2022 21:38 INDICATION: fall TECHNIQUE: Computed tomography (CT) of the cervical spine was performed without intravenous contrast. Automated exposure control and iterative reconstruction technique were employed. The dose-length pro duct was 505.43 mGy-cm. COMPARISON: 10/28/2020; CT cap 11/30/2019. FINDINGS: Vertebral Body Alignment: Intact. Mild reversal of the normal lordosis, centered at C5-6 which can oc cur with positioning or muscle spasm. Craniocervical and atlantoaxial alignment: Moderate degenerative change. Alignment intact. Osseous structures/fracture: No evidence of a lytic or blastic process in the visualized spine. No e vidence of acute fracture. . Cervical soft tissues: The paraspinal soft tissues planes are maintained. 3.9 cm right thyroid mass. Peripheral lung interstitial change. Degenerative changes: Degenerative changes, without severe neural foraminal or central canal narrowin g. IMPRESSION: No acute fracture or traumatic malalignment in the cervical spine. 3.9 cm right thyroid mass, conside r outpatient thyroid ultrasound for further characterization. Reviewed, dictated and finalized at location K. IMPRESSION: No acute fracture or traumatic malalignment in the cervical spine. 3.9 cm right thyroid mass, consider outpatient thyroid ultrasound for further characterizat ion.
--- NOTE | ~2022-07-28 | XR_ITS ---
EXAM: XR shoulder RT min 2V, XR humerus RT DATE: 07/28/2022 21:02 HISTORY: fall ON RIGHT SIDE, AMS . COMPARISON: None available. FINDINGS: Normal mineralization. Comminuted fracture of the proximal right humerus involving a mildl y distracted fracture of the greater tuberosity and a predominantly transverse component at the surgi veronica neck. No lytic or blastic lesion. Mild degenerative changes at the glenohumeral joint. Moderate d egenerative change at the AC joint. No erosion or periosteal change. Soft tissues within normal limit s. IMPRESSION: Comminuted fracture of the proximal right humerus involving a predominantly transverse co mponent at the surgical neck and a mildly distracted greater tuberosity fracture. Reviewed, dictated and finalized at location K. IMPRESSION: Comminuted fracture of the proximal right humerus involving a predo minantly transverse component at the surgical neck and a mildly distracted grea ter tuberosity fracture.
--- NOTE | 2022-07-28 21:20 | ED.FALL ---
HPI - Fall General Chief Complaint: Fall Stated Complaint: fall, R shoulder pain, takes blood thinner Time Seen by Provider: 07/28/22 21:13 History of Present Illness HPI Narrative: 72-year-old male with a history of atrial fibrillation status post Watchman procedure, dementia with baseline ANO x1, here for evaluation of right shoulder pain after a fall today. Patient states that he stood up without his walker and felt unsteady on his feet, causing him to fall forward and strike his face and right shoulder on the floor. He has a history of frequent falls and is supposed to use his walker which he did not use tonight. He recently was taken off of apixaban due to frequent falls, had a Watchman procedure at the end of last month for A-fib and is currently on Plavix. Patient denies any preceding chest pain, shortness of breath, palpitations, abdominal pain, nausea or vomiting or other concerning findings. He is legally blind. Related Data Home Medications Medication Instructions Recorded Confirmed thiamine HCl (vitamin B1) 100 mg 100 mg PO DAILY 02/26/20 06/09/21 tablet cholecalciferol (vitamin D3) 125 125 mcg PO DAILY 03/28/20 06/09/21 mcg (5,000 unit) capsule metoprolol tartrate 50 mg tablet 100 mg PO Q12HR 01/25/21 06/09/21 furosemide 40 mg tablet 40 mg PO DAILY 06/09/21 06/09/21 loperamide 2 mg capsule 2 mg PO DAILY 06/09/21 06/09/21 multivitamin with minerals 1 tablet PO DAILY 06/09/21 06/09/21 olmesartan 40 1 tablet PO HS 06/09/21 06/09/21 mg-hydrochlorothiazide 12.5 mg tablet pravastatin 40 mg tablet 40 mg PO HS 06/09/21 06/09/21 terazosin 10 mg capsule 10 mg PO HS 06/09/21 06/09/21 Allergies Allergy/AdvReac Type Severity Reaction Status Date / Time Penicillins Allergy Severe Hives / Verified 01/25/21 15:02 Red Face Review of Systems Review of Systems: Gen.: Denies fevers or chills Eyes: Denies eye pain or visual change ENT: Denies congestion Respiratory: Denies shortness of breath or cough CV: Denies chest pain or palpitations GI: Denies abdominal pain nausea, emesis or diarrhea denies burning, urgency, frequency or hematuria Musculoskeletal: Reports right shoulder pain and facial pain Neuro: Denies numbness, tingling, weakness or focal weakness Skin: Denies rash Except as documented, all other systems reviewed and negative [facility] Past Medical History Medical History Acute cholecystitis 07/2019 treated with antibiotic therapy, no cholecystectomy due to being a poor surgical candidate. 10/08/2019 - returned to hospital with intra-abdominal abscess in the gallbladder fossa and extending around liver - thought to be related to gallbladder perforation. Treated with antibiotics and percutaneous drainage x 3. Alcohol abuse Anxiety Atrial fibrillation BPH (benign prostatic hyperplasia) CHF (congestive heart failure) Echocardiogram on 10/20/19 showing EF 55-60% with variable contractility due to atrial fibrillation. Aortic valve sclerosis without hemodynamically significant stenosis by Doppler. Trace TR, moderate pulmonary hypertension. Small circumferential pericardial effusion. Chronic anemia COPD (chronic obstructive pulmonary disease) Essential hypertension GERD (gastroesophageal reflux disease) Histoplasmosis Retinal histoplasmosis and very poor vision History of BPH History of TIAs Hyperlipidemia Vitamin D deficiency Surgical History Surgical History History of bilateral cataract extraction History of vasectomy Male circumcision S/P cholecystectomy Family History Family History Sibling Polio Father Lung cancer Mother Hypertension Social History Social History Social History: His paperwork says he is from at [facility]. The patient
--- NOTE | 2022-07-28 21:22 | ECG_ITS ---
Measurements Intervals [place] Rate: 84 P: NH: 0 QRS: 33 QRSD: 81 T: 15 QT: 378 QTc: 447 Interpretive Statements ATRIAL FIBRILLATION POOR R-WAVE PROGRESSION NONSPECIFIC T-WAVE ABNORMALITY ABNORMAL ECG COMPARED TO ECG 06/06/2022 20:50:54 NO SIGNIFICANT CHANGE Electronically Signed On 07-29-2022 7:49:53 CDT by Donavan Monahan M.D.
[2022-07-28 21:51] LABS: Basophils Percent Auto 0.3 % (0.2-1.2); Eosinophils Absolute Auto 0.2 K/mm3 (0-0.3); Eosinophils Percent Auto 3.1 % (0-4.4); Hematocrit 37.4 % (42.0-52.0); Hemoglobin 12.3 g/dL (14.0-18.0); Immature Granulocyte Absolute 0.02 K/mm3 (0.00-0.031); Immature Granulocyte Percent A 0.3 % (0-0.5); Lymphocytes Absolute Auto 1.15 K/mm3 (0.9-3.2); Lymphocytes Percent Auto 19.5 % (18.3-44.2); Mean Corpuscular HGB Conc 32.9 g/dl (32-36); Mean Corpuscular Hemoglobin 32.8 pg (26-34); Mean Corpuscular Volume 99.7 fl (80-100); Mean Platelet Volume 9.7 fl (7.4-10.4); Monocytes Absolute Auto 0.4 K/mm3 (0.1-0.6); Monocytes Percent Auto 6.1 % (2.6-8.5); Neutrophils Absolute Auto 4.2 K/mm3 (1.3-6.7); Neutrophils Percent Auto 70.7 % (45.5-73.1); Platelet Count Result 122 k/mm3 (150-375); Red Blood Count 3.75 M/mm3 (4.6-6.20); Red Cell Distribution Width 13.2 % (11.5-14.5); White Blood Count 5.9 K/mm3 (4.5-10.0)
[2022-07-28 22:00] LABS: Alanine Aminotransferase 123 U/L (6-50); Albumin Level 3.5 g/dL (3.5-5.1); Alkaline Phosphatase 143 U/L (38-126); Anion Gap 4 mmol/L (8-16); Aspartate Amino Transferase 215 U/L (17-59); Bilirubin,Total 0.6 mg/dL (0.2-1.3); Blood Urea Nitrogen 19 mg/dL (9-20); Calcium 8.1 mg/dL (8.4-10.2); Carbon Dioxide 33 mmol/L (22-30); Chloride 101 mmol/L (98-107); Estimated Glomerular Filt Rate > 60; Glucose 139 mg/dL (65-110); Potassium 3.4 mmol/L (3.4-5.0); Sodium 138 mmol/L (137-145)
[2022-07-28] MEDS: HYDROcodone/acetaminophen (*CRX) 5-325 MG TABLET 1 TAB PO (22:55)
[2022-07-29] VITALS (38 sets, daily range): BP systolic 121–218; BP diastolic 83–197; PULSE 77–99; RESP 14–20; TEMP 36.4; O2SAT 93–99
[2022-07-29] MEDS: ACETAMINOPHEN 500 MG TABLET 1000 MG PO (04:10)
--- NOTE | 2022-07-29 07:19 | PC.NURSE ---
Called Areli at [facility] to give report and advise that patient is on the way back now by [facility].
== END 2022-07-29 07:21 | disposition home or self-care (01) ==
PROVIDERS: Emergency Provider Physician Assistant; PCP Family Medicine
DX: S42.211A Unspecified displaced fracture of surgical neck of right humerus, initial encounter for closed fracture (principal); S42.251A Displaced fracture of greater tuberosity of right humerus, initial encounter for closed fracture; S02.841A Fracture of lateral orbital wall, right side, initial encounter for closed fracture; S02.40CA Maxillary fracture, right side, initial encounter for closed fracture; I48.91 Unspecified atrial fibrillation; I50.9 Heart failure, unspecified; I11.0 Hypertensive heart disease with heart failure; J44.9 Chronic obstructive pulmonary disease, unspecified; E78.5 Hyperlipidemia, unspecified; E55.9 Vitamin D deficiency, unspecified; D64.9 Anemia, unspecified; N40.0 Benign prostatic hyperplasia without lower urinary tract symptoms; K21.9 Gastro-esophageal reflux disease without esophagitis; Z98.42 Cataract extraction status, left eye; Z98.41 Cataract extraction status, right eye; Z90.49 Acquired absence of other specified parts of digestive tract; Z86.73 Personal history of transient ischemic attack (TIA), and cerebral infarction without residual deficits; Z87.891 Personal history of nicotine dependence; Z79.01 Long term (current) use of anticoagulants; R94.31 Abnormal electrocardiogram [ECG] [EKG]; E07.89 Other specified disorders of thyroid; W18.39XA Other fall on same level, initial encounter
CPT/HCPCS: 36415; 70450; 70486; 72125; 73030; 73060; 80053; 85025; 93005; 99284; A4565; A9270

== ENCOUNTER 2022-07-29 10:16 | Emergency (ER) | payer MEDICARE, SELFPAY ==
--- NOTE | ~2022-07-29 | XR_ITS ---
EXAMINATION: XR humerus RT INDICATION: Right shoulder pain TECHNIQUE: Three views of the right humerus are obtained. COMPARISON: 07/28/2022 FINDINGS: A greater tuberosity fracture of the proximal humerus is again noted. Also seen is a nondis placed surgical neck fracture of the proximal humerus. No additional fracture is identified. There is significant soft tissue swelling and probable soft tissue hematoma of the proximal right upper arm. IMPRESSION: 1. Stable, probable three part fracture of the proximal right humerus. Reviewed, dictated and finalized at location A.
[2022-07-29 10:14] VITALS: BP 126/85; PULSE 95; RESP 12; TEMP 36.6; O2SAT 100
[2022-07-29 11:58] VITALS: PULSE 100; RESP 18; O2SAT 99
[2022-07-29 12:17] LABS: Appearance Urine Clear (Clear); Bacteria Urine None Seen /hpf; Bilirubin Urine Negative (Negative); Blood Urine Negative (Negative); Color Urine Dark Yellow (Yellow); Glucose Urine UA Negative (Negative); Ketones Urine Trace mg/dL (Negative); Leukocyte Esterase Ur Negative LEU/UL (Negative); Need Manual Microscopic Reviewed; Nitrate Urine Negative (Negative); Non Pathogenic Casts 0-2; Protein Urine Trace mg/dL (Negative); RBC Urine 0-2 /hpf (0-2); Specific Grav Ur 1.034 (1.001-1.035); Squamous Epithelial Cell Urine None seen /hpf (Few); WBC Urine 0-5 /hpf
[2022-07-29 12:18] LABS: Add Urine Microscopic? YES
[2022-07-29 12:26] VITALS: BP 126/91; BP 141/95; PULSE 90; PULSE 93
[2022-07-29 12:27] VITALS: BP 109/63; PULSE 99
--- NOTE | 2022-07-29 13:27 | PC.NURSE ---
This RN spoke with Mily at [facility], Mily verbalized they have the ability to care for pt as a one assist. Pt baseline ambulatory status has not changed. Mily stated the facility has concerns of UTI due to pt attempting to get to his bed without help . Negative urinalysis results will be sent back to [facility].
--- NOTE | 2022-07-29 13:49 | ED.GENADULT ---
HPI - General Adult General Chief complaint: Fall Stated complaint: fall Time Seen by Provider: 07/29/22 10:21 History of Present Illness HPI narrative: Patient is a 72-year-old male who presents ER from his memory care for evaluation. Patient recently diagnosed with a proximal humerus fracture. He is discharged back to the facility today and he felt better on the same side. Facility would like him reevaluated and have his urine checked. Patient is oriented x1 and cannot provide history. Related Data Allergies Allergy/AdvReac Type Severity Reaction Status Date / Time Penicillins AdvReac Unknown Verified 07/29/22 14:42 Review of Systems Review of Systems: ROS unobtainable: Yes unobtainable due to mental status PMFSH Past Medical History Medical History (Updated 07/29/22 @ 17:10 by Bill Kenney MD) Anxiety Atrial fibrillation BPH (benign prostatic hyperplasia) CHF (congestive heart failure) COPD (chronic obstructive pulmonary disease) Dementia GERD (gastroesophageal reflux disease) Surgical History Surgical History (Updated 07/29/22 @ 17:10 by Bill Kenney MD) History of cholecystectomy Exam Narrative: GENERAL: Well-appearing, well-nourished, and in no acute distress. HEAD: Normocephalic, atraumatic. EYES: PERRL and EOMI. ENT: Mucous membranes moist. CHEST: Clear to auscultation. No respiratory distress. HEART: Regular rate and rhythm. Normal peripheral pulses. EXTREMITIES: Right upper extremity with tenderness to the proximal humerus but placed in a sling for comfort. No lower extremity injury with normal range of motion. Unremarkable left upper extremity. SKIN: Warm, dry, no rash. NEURO: Alert and oriented x1. PSYCH: Normal mood and affect. Course Course Emergency Course: No infection or progression of arm fracture. Patient is able to transfer with one-to-one's assistance. snf says they have full ability to care for him in this state but also can provide increased resources should she require. He will be discharged back. Vital Signs Vital signs: Vital Signs Temperature 97.8 F 07/29/22 10:14 Pulse Rate 95 07/29/22 10:14 Respiratory Rate 12 07/29/22 10:14 Blood Pressure 126/85 07/29/22 10:14 Pulse Oximetry 100 07/29/22 10:14 Oxygen Delivery Room Air 07/29/22 10:14 Temperature 97.5 F L 07/29/22 16:43 Pulse Rate 108 H 07/29/22 16:43 Respiratory Rate 15 07/29/22 16:43 Blood Pressure 126/97 H 07/29/22 16:43 Pulse Oximetry 98 07/29/22 16:43 Oxygen Delivery Room Air 07/29/22 10:14 Medical Decision Making Vital Signs Vital Signs: Vital Signs Temperature 97.8 F 07/29/22 10:14 Pulse Rate 95 07/29/22 10:14 Respiratory Rate 12 07/29/22 10:14 Blood Pressure 126/85 07/29/22 10:14 Pulse Oximetry 100 07/29/22 10:14 Oxygen Delivery Room Air 07/29/22 10:14 Temperature 97.5 F L 07/29/22 16:43 Pulse Rate 108 H 07/29/22 16:43 Respiratory Rate 15 07/29/22 16:43 Blood Pressure 126/97 H 07/29/22 16:43 Pulse Oximetry 98 07/29/22 16:43 Oxygen Delivery Room Air 07/29/22 10:14 Lab Data Labs: Lab Results 07/29/22 Range/Units 11:58 Urine Color Dark yellow (Yellow) Urine Appearance Clear (Clear) Urine pH 6.0 (5.0-9.0) Ur Specific Industry 1.034 (1.001-1.035) Urine Protein Trace (Negative) mg/dL Urine Glucose (UA) Negative (Negative) mg/dL Urine Ketones Trace (Negative) mg/dL Ur Blood (Man) Negative (Negative) Urine Nitrate Negative (Negative) Urine Bilirubin Negative (Negative) Urine Urobilinogen 1.0 (<2.0) mg/dL Add Ur Microanalysis Reviewed Leukocyte Esterase Rfl Negative (Negative) BERNARDO/UL Urine RBC 0-2 (0-2) /hpf Urine WBC 0-5 /hpf Ur Squamous Epith Cells None seen (Few) /hpf Urine Bacteria None seen /hpf Urine Casts 0-2 Imaging Data Radiologist's impression: ITS Impressions Humerus X-Ray 07/29/22 11:48 IMPRESSI
--- NOTE | 2022-07-29 14:16 | PC.NURSE ---
[facility] Return to [facility] in [place] [facility] [facility] No transfer truck today [facility] accepted ETA 1530 Trip #[id number]
[2022-07-29 14:41] VITALS: BP 126/90; PULSE 90; RESP 16; O2SAT 95
--- NOTE | 2022-07-29 16:37 | PC.NURSE ---
updated eta for [facility] 1714
[2022-07-29 16:43] VITALS: BP 126/97; PULSE 108; RESP 15; TEMP 36.4; O2SAT 98
== END 2022-07-29 21:57 | disposition home or self-care (01) ==
PROVIDERS: Emergency Provider Emergency Medicine; PCP Family Medicine
DX: S42.201A Unspecified fracture of upper end of right humerus, initial encounter for closed fracture (principal); I48.91 Unspecified atrial fibrillation; F41.9 Anxiety disorder, unspecified; I50.9 Heart failure, unspecified; J44.9 Chronic obstructive pulmonary disease, unspecified; F03.90 Unspecified dementia, unspecified severity, without behavioral disturbance, psychotic disturbance, mood disturbance, and anxiety; W19.XXXA Unspecified fall, initial encounter
CPT/HCPCS: 73060; 81001; 99283

== ENCOUNTER 2022-09-26 06:59 | Emergency (ER) | payer MEDICARE, SELFPAY ==
--- NOTE | ~2022-09-26 | XR_ITS ---
Lumbosacral Spine: AP and lateral views Clinical History: Pain Findings: The normal lordotic curve is maintained. Moderate compression fracture of L1 present. Mild compression fracture of L2 present. Mild to moderate compression fracture of T9 also noted. There is advanced facet arthropathy L4-L5 and L5-S1. The intervertebral disc spaces are preserved. The sacroi liac joints are normally outlined. Impression: Compression fractures of T9, L1, L2, somewhat age indeterminate. These are new since prior CT dated . Facet arthropathy at L4-L5 and L5-S1. Reviewed, dictated and finalized at location . Impression: Compression fractures of T9, L1, L2, somewhat age indeterminate. These are new since prior CT dated 12/18/2019. Facet arthropathy at L4-L5 and L5-S1.
--- NOTE | ~2022-09-26 | CT_ITS ---
EXAMINATION: CT lumbar spine wo con DATE: 09/26/2022 08:18 INDICATION: CT dated 12/18/2019 TECHNIQUE: Computed tomography (CT) of the lumbar spine was performed without intravenous contrast. T he dose-length product was 898.22 mGy-cm. Automated exposure control and iterative reconstruction robina hnique were employed. COMPARISON: CT dated 12/18/2019 FINDINGS: There are compression fractures of L1 and L2, most likely subacute or chronic, although new compared with prior CT. There is disc narrowing at L5-S1. There is grade 1 degenerative spondylolist hesis at L4-5. There is mild multilevel facet hypertrophy. There is atherosclerosis of the aorta, par tially visualized. Mild levoscoliosis. Transverse processes are normal. There is right hydronephrosis , partially visualized. IMPRESSION: 1. Compression fractures of L1 and L2, most likely subacute or chronic, although new compared with CT dated 12/18/2019. 2: Moderate lumbar spondylosis. Reviewed, dictated and finalized at location [] IMPRESSION: 1. Compression fractures of L1 and L2, most likely subacute or chronic, althoug h new compared with CT dated 12/18/2019. 2: Moderate lumbar spondylosis.
[2022-09-26 07:01] VITALS: BP 172/112; PULSE 83; RESP 16; TEMP 36.5; O2SAT 100
[2022-09-26 09:00] VITALS: BP 170/99; O2SAT 100
--- NOTE | 2022-09-26 09:14 | PC.NURSE ---
Ambulatory in room with assist of 2. Denies any pain with ambulation.
--- NOTE | 2022-09-26 09:26 | ED.FALL ---
HPI - Fall General Chief Complaint: Fall Stated Complaint: fall Time Seen by Provider: 09/26/22 07:03 History of Present Illness HPI Narrative: Patient is a 72-year-old male who presents ER status post fall. Was getting out of wheelchair and fell down onto his buttock. Did not strike his head or lose consciousness. [facility] by jail for evaluation due to some low back pain. Patient has no complaints at this time. He is in no distress. Related Data Home Medications Medication Instructions Recorded Confirmed thiamine HCl (vitamin B1) 100 mg 100 mg PO DAILY 02/26/20 06/09/21 tablet cholecalciferol (vitamin D3) 125 125 mcg PO DAILY 03/28/20 06/09/21 mcg (5,000 unit) capsule metoprolol tartrate 50 mg tablet 100 mg PO Q12HR 01/25/21 06/09/21 furosemide 40 mg tablet 40 mg PO DAILY 06/09/21 06/09/21 loperamide 2 mg capsule 2 mg PO DAILY 06/09/21 06/09/21 multivitamin with minerals 1 tablet PO DAILY 06/09/21 06/09/21 olmesartan 40 1 tablet PO HS 06/09/21 06/09/21 mg-hydrochlorothiazide 12.5 mg tablet pravastatin 40 mg tablet 40 mg PO HS 06/09/21 06/09/21 terazosin 10 mg capsule 10 mg PO HS 06/09/21 06/09/21 Allergies Allergy/AdvReac Type Severity Reaction Status Date / Time Penicillins AdvReac Unknown Verified 09/26/22 07:40 Review of Systems Review of Systems: ROS unobtainable: Yes unobtainable due to mental status [facility] Past Medical History Medical History (Updated 09/26/22 @ 09:27 by Bill Kenney MD) Acute cholecystitis 07/2019 treated with antibiotic therapy, no cholecystectomy due to being a poor surgical candidate. 10/08/2019 - returned to hospital with intra-abdominal abscess in the gallbladder fossa and extending around liver - thought to be related to gallbladder perforation. Treated with antibiotics and percutaneous drainage x 3. Alcohol abuse Anxiety Anxiety Atrial fibrillation Atrial fibrillation BPH (benign prostatic hyperplasia) BPH (benign prostatic hyperplasia) CHF (congestive heart failure) CHF (congestive heart failure) Echocardiogram on 10/20/19 showing EF 55-60% with variable contractility due to atrial fibrillation. Aortic valve sclerosis without hemodynamically significant stenosis by Doppler. Trace TR, moderate pulmonary hypertension. Small circumferential pericardial effusion. Chronic anemia COPD (chronic obstructive pulmonary disease) COPD (chronic obstructive pulmonary disease) Dementia Essential hypertension GERD (gastroesophageal reflux disease) GERD (gastroesophageal reflux disease) Histoplasmosis Retinal histoplasmosis and very poor vision History of BPH History of TIAs Hyperlipidemia Vitamin D deficiency Surgical History Surgical History (Updated 08/01/22 @ 07:51 by Gabriel Rivera) History of bilateral cataract extraction History of cholecystectomy History of vasectomy Male circumcision S/P cholecystectomy Family History Family History (System 08/01/22 @ 07:51 by Gabriel Rivera) Sibling Polio Father Lung cancer Mother Hypertension Social History Social History (System 08/01/22 @ 07:51 by Gabriel Rivera) Social History: His paperwork says he is from at [facility]. The patient was where which facility came from this time. Patient was drinking (3) 4 oz drinks of Tequila a day prior to his hospitalization in July. He was recently hospitalized for a month and discharged to [facility] on 11/09/19 from [place]. Primary care physician: Dr. Jean-Claude Crawford Code status: Full code. Surrogate decision maker is Raine phone number [phone]. The patient has 2 children. 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 Smoking packs per day: 1 Smoking cigarettes per day: 20.0 Years smoked: 56 Smoking pack-years: 56.00 Smoking status: Current every day smoker Tobacco type: cigarettes Second hand tobacco smoke exposure: Yes Smoking end date: 10/08/19 Alcohol intake: current Drinks per week: 14 Sub
== END 2022-09-26 09:57 ==
PROVIDERS: Emergency Provider Emergency Medicine; PCP Family Medicine
DX: S39.92XA Unspecified injury of lower back, initial encounter (principal); M48.56XA Collapsed vertebra, not elsewhere classified, lumbar region, initial encounter for fracture; I48.91 Unspecified atrial fibrillation; I50.9 Heart failure, unspecified; J44.9 Chronic obstructive pulmonary disease, unspecified; F03.90 Unspecified dementia, unspecified severity, without behavioral disturbance, psychotic disturbance, mood disturbance, and anxiety; B39.9 Histoplasmosis, unspecified; E78.5 Hyperlipidemia, unspecified; E55.9 Vitamin D deficiency, unspecified; D64.9 Anemia, unspecified; N40.0 Benign prostatic hyperplasia without lower urinary tract symptoms; Z98.42 Cataract extraction status, left eye; Z98.41 Cataract extraction status, right eye; Z86.73 Personal history of transient ischemic attack (TIA), and cerebral infarction without residual deficits; Z87.891 Personal history of nicotine dependence; Z90.49 Acquired absence of other specified parts of digestive tract; M47.816 Spondylosis without myelopathy or radiculopathy, lumbar region; W05.0XXA Fall from non-moving wheelchair, initial encounter
CPT/HCPCS: 72100; 72131; 99284

== ENCOUNTER 2023-03-11 15:25 | Emergency (ER) | payer MEDICARE, SELFPAY ==
--- NOTE | ~2023-03-11 | XR_ITS ---
EXAMINATION: XR chest 1V portable DATE: 03/11/2023 22:48 INDICATION: Shortness of breath and wheezing. TECHNIQUE: A single frontal view of the chest was obtained. COMPARISON: Chest single view 06/06/2022 FINDINGS: There is no pneumonia, pleural effusion, or pneumothorax. Cardiomegaly is noted. IMPRESSION: 1. Cardiomegaly. Reviewed, dictated and finalized at location E. NCIAL DIRECTOR IMPRESSION: 1. Cardiomegaly.
[2023-03-11 15:53] VITALS: BP 112/89; PULSE 89; RESP 18; TEMP 35.8; O2SAT 97
--- NOTE | 2023-03-11 20:13 | ECG_ITS ---
Measurements Intervals [place] Rate: 68 P: CA: 0 QRS: -11 QRSD: 81 T: -1 QT: 414 QTc: 441 Interpretive Statements ATRIAL FIBRILLATION POSSIBLE OLD SEPTAL MYOCARDIAL INFARCTION NO PREVIOUS ECG AVAILABLE FOR COMPARISON Electronically Signed On 03-12-2023 13:25:18 [employer]OOFING SUBCONTRACTOR by Jelena Garzon M.D.
[2023-03-11 20:28] VITALS: BP 108/66; PULSE 81; RESP 18
[2023-03-11 20:32] LABS: Basophils Percent Auto 0.3 % (0.2-1.2); Eosinophils Absolute Auto 0.1 K/mm3 (0-0.3); Eosinophils Percent Auto 1.2 % (0-4.4); Hematocrit 41.4 % (42.0-52.0); Hemoglobin 13.6 g/dL (14.0-18.0); Immature Granulocyte Absolute 0.02 K/mm3 (0.00-0.031); Immature Granulocyte Percent A 0.3 % (0-0.5); Lymphocytes Absolute Auto 0.99 K/mm3 (0.9-3.2); Mean Corpuscular HGB Conc 32.9 g/dl (32-36); Mean Corpuscular Hemoglobin 31.6 pg (26-34); Mean Corpuscular Volume 96.1 fl (80-100); Mean Platelet Volume 10.6 fl (7.4-10.4); Monocytes Absolute Auto 0.4 K/mm3 (0.1-0.6); Monocytes Percent Auto 6.5 % (2.6-8.5); Neutrophils Absolute Auto 4.4 K/mm3 (1.3-6.7); Neutrophils Percent Auto 74.7 % (45.5-73.1); Platelet Count Result 146 k/mm3 (150-375); Red Blood Count 4.31 M/mm3 (4.6-6.20); Red Cell Distribution Width 13.1 % (11.5-14.5); White Blood Count 5.8 K/mm3 (4.5-10.0)
[2023-03-11 20:43] LABS: Alanine Aminotransferase 184 U/L (6-50); Albumin Level 3.9 g/dL (3.5-5.1); Alkaline Phosphatase 516 U/L (38-126); Anion Gap 11 mmol/L (8-16); Aspartate Amino Transferase 168 U/L (17-59); Bilirubin,Total 3.8 mg/dL (0.2-1.3); Blood Urea Nitrogen 17 mg/dL (9-20); Calcium 8.8 mg/dL (8.4-10.2); Carbon Dioxide 26 mmol/L (22-30); Chloride 103 mmol/L (98-107); Estimated Glomerular Filt Rate 54; Glucose 133 mg/dL (65-110); Potassium 3.2 mmol/L (3.4-5.0); Sodium 140 mmol/L (137-145)
[2023-03-11 20:44] LABS: Partial Thromboplastin Time 27.1 SECONDS (22.3-36.8)
[2023-03-11 22:18] VITALS: BP 141/101; PULSE 88; RESP 18; O2SAT 99
--- NOTE | 2023-03-11 22:39 | ED.GENADULT ---
HPI - General Adult General Chief complaint: Unspecified Stated complaint: confusion Time Seen by Provider: 03/11/23 22:03 History of Present Illness HPI narrative: patient is a 72-year-old male presenting with possible increased confusion. He is coming from a nursing facility. He is A&O times 1-2 at baseline. He was reportedly more confused today so EMS was called. On my evaluation, he denies any complaints other than feeling generally fatigued. He denies any pain. Related Data Home Medications Medication Instructions Recorded Confirmed thiamine HCl (vitamin B1) 100 mg 100 mg PO DAILY 02/26/20 06/09/21 tablet cholecalciferol (vitamin D3) 125 125 mcg PO DAILY 03/28/20 06/09/21 mcg (5,000 unit) capsule metoprolol tartrate 50 mg tablet 100 mg PO Q12HR 01/25/21 06/09/21 furosemide 40 mg tablet 40 mg PO DAILY 06/09/21 06/09/21 loperamide 2 mg capsule 2 mg PO DAILY 06/09/21 06/09/21 multivitamin with minerals 1 tablet PO DAILY 06/09/21 06/09/21 olmesartan 40 1 tablet PO HS 06/09/21 06/09/21 mg-hydrochlorothiazide 12.5 mg tablet pravastatin 40 mg tablet 40 mg PO HS 06/09/21 06/09/21 terazosin 10 mg capsule 10 mg PO HS 06/09/21 06/09/21 Allergies Allergy/AdvReac Type Severity Reaction Status Date / Time Penicillins AdvReac Unknown Verified 03/11/23 15:28 Review of Systems Review of Systems: ROS unobtainable: Yes unobtainable due to medical condition, unobtainable due to mental status and other ( underlying dementia) [facility] Past Medical History Medical History Acute cholecystitis 07/2019 treated with antibiotic therapy, no cholecystectomy due to being a poor surgical candidate. 10/08/2019 - returned to hospital with intra-abdominal abscess in the gallbladder fossa and extending around liver - thought to be related to gallbladder perforation. Treated with antibiotics and percutaneous drainage x 3. Alcohol abuse Anxiety Anxiety Atrial fibrillation Atrial fibrillation BPH (benign prostatic hyperplasia) BPH (benign prostatic hyperplasia) CHF (congestive heart failure) CHF (congestive heart failure) Echocardiogram on 10/20/19 showing EF 55-60% with variable contractility due to atrial fibrillation. Aortic valve sclerosis without hemodynamically significant stenosis by Doppler. Trace TR, moderate pulmonary hypertension. Small circumferential pericardial effusion. Chronic anemia COPD (chronic obstructive pulmonary disease) COPD (chronic obstructive pulmonary disease) Dementia Essential hypertension GERD (gastroesophageal reflux disease) GERD (gastroesophageal reflux disease) Histoplasmosis Retinal histoplasmosis and very poor vision History of BPH History of TIAs Hyperlipidemia Vitamin D deficiency Surgical History Surgical History History of bilateral cataract extraction History of cholecystectomy History of vasectomy Male circumcision S/P cholecystectomy Family History Family History Sibling Polio Father Lung cancer Mother Hypertension Social History Social History Social History: His paperwork says he is from at [facility]. The patient was where which facility came from this time. Patient was drinking (3) 4 oz drinks of Tequila a day prior to his hospitalization in July. He was recently hospitalized for a month and discharged to [facility] on 11/09/19 from [place]. Primary care physician: Dr. Jean-Claude Crawford Code status: Full code. Surrogate decision maker is Raine phone number [phone]. The patient has 2 children. 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 Smoking packs per day: 1 Smoking cigarettes per day: 20.0 Years smoked: 56 Smoking pack-years: 56.00 Smoking status: Current every day smoker Tob
[2023-03-11 22:42] LABS: Appearance Urine Cloudy (Clear); Bacteria Urine None Seen /hpf; Bilirubin Urine 3+ (Negative); Blood Urine Negative (Negative); Color Urine Dark Yellow (Yellow); Glucose Urine UA Negative (Negative); Hyaline Casts Urine Present /lpf; Ketones Urine Trace mg/dL (Negative); Leukocyte Esterase Ur 1+ LEU/UL (Negative); Need Manual Microscopic Reviewed; Nitrate Urine Positive (Negative); Protein Urine 1+ mg/dL (Negative); RBC Urine 0-2 /hpf (0-2); Specific Grav Ur 1.019 (1.001-1.035); Squamous Epithelial Cell Urine None seen /hpf (Few); WBC Urine 0-5 /hpf; pH Urine 5.5 (5.0-9.0)
[2023-03-11 22:44] LABS: Add Urine Microscopic? YES
[2023-03-11] MEDS: ALBUTEROL SULFATE NEB 2.5 MG/3 ML INH 10 MG INHALATION (22:53)
[2023-03-11] MEDS: IPRATROPIUM BR 0.02% INH SOLN 0.5 MG/2.5 ML VIAL INHALATION (22:53)
[2023-03-11 22:56] VITALS: PULSE 106; RESP 20
[2023-03-11 23:15] VITALS: BP 130/89; PULSE 100; RESP 17; TEMP 36.6; O2SAT 100
[2023-03-11 23:16] VITALS: PULSE 95
[2023-03-11 23:23] LABS: Influenza A QL RT-PCR Negative (Negative); Influenza B QL RT-PCR Negative (Negative); RSV RNA, RT-PCR Negative (Negative); SARS-CoV-2 RNA PCR Negative (Negative)
[2023-03-12] MEDS: CEPHALEXIN 500 MG CAPSULE PO
== END 2023-03-12 01:22 ==
PROVIDERS: Emergency Provider Emergency Medicine; PCP Family Medicine
DX: N39.0 Urinary tract infection, site not specified (principal); E86.0 Dehydration; Z20.822 Contact with and (suspected) exposure to COVID-19; F03.90 Unspecified dementia, unspecified severity, without behavioral disturbance, psychotic disturbance, mood disturbance, and anxiety; I48.91 Unspecified atrial fibrillation; I11.0 Hypertensive heart disease with heart failure; I50.9 Heart failure, unspecified; J44.9 Chronic obstructive pulmonary disease, unspecified; E78.5 Hyperlipidemia, unspecified; E55.9 Vitamin D deficiency, unspecified; N40.0 Benign prostatic hyperplasia without lower urinary tract symptoms; D64.9 Anemia, unspecified; K21.9 Gastro-esophageal reflux disease without esophagitis; Z86.73 Personal history of transient ischemic attack (TIA), and cerebral infarction without residual deficits; Z87.891 Personal history of nicotine dependence; Z98.42 Cataract extraction status, left eye; Z98.41 Cataract extraction status, right eye; Z90.49 Acquired absence of other specified parts of digestive tract; Z79.01 Long term (current) use of anticoagulants; I51.7 Cardiomegaly; R94.31 Abnormal electrocardiogram [ECG] [EKG]
CPT/HCPCS: 36415; 71045; 80053; 81001; 85025; 85610; 85730; 87637; 93005; 94640; 99284; A9270

== ENCOUNTER 2023-04-12 15:33 | Inpatient (IN) | payer MEDICARE, SELFPAY ==
[2023-04-12] VITALS (35 sets, daily range): BP systolic 113–150; BP diastolic 65–91; PULSE 76–144; RESP 14–32; TEMP 36.5–38.4; O2SAT 93–98; BMI 27.1
--- NOTE | ~2023-04-12 | XR_ITS ---
EXAMINATION: XR chest 1V portable DATE: 04/15/2023 18:11 INDICATION: Aspiration TECHNIQUE: frontal view of the chest was obtained. COMPARISON: Chest radiograph dated 04/12/2023 FINDINGS: The lungs are clear with no focal airspace opacities, pulmonary edema, pleural effusion or pneumothor ax. Cardiomegaly IMPRESSION: 1. No acute cardiopulmonary disease. Reviewed, dictated and finalized at location A. TENANCE ASSISTANT
--- NOTE | ~2023-04-12 | XR_ITS ---
EXAMINATION: XR chest 1V portable DATE: 04/12/2023 16:31 INDICATION: Shortness of breath. Febrile. TECHNIQUE: frontal view of the chest was obtained. COMPARISON: Chest radiograph dated 03/11/2023 FINDINGS: The lungs are clear with no focal airspace opacities, pulmonary edema, pleural effusion or pneumothor ax. Cardiomegaly. Calcified left hilar lymph nodes consistent with old granulomatous disease. There a re old bilateral anterior rib fractures. IMPRESSION: 1. No acute cardiopulmonary disease. 2. Cardiomegaly. Reviewed, dictated and finalized at location A. NG END TRIMMER
--- NOTE | ~2023-04-12 | MR_ITS ---
EXAMINATION: MR MRCP wo/w con/w 3D wo ind DATE: 04/17/2023 11:52 INDICATION: Obstructive jaundice. TECHNIQUE: Magnetic resonance imaging (MRI) of the abdomen was performed without and with 18 mL Multi Desi intravenous contrast. Sequences included coronal T2-weighted FS FSE, coronal T2-weighted FSE, a xial T1-weighted LAVA, coronal FS FIESTA, axial dual-echo T1-weighted SPGR, coronal lava-FLEX, sagitt al T2-weighted FSE, axial T2-weighted FSE, and axial DWI. Thick-slab T2-weighted FSE images were obta ined for magnetic resonance cholangiopancreatography (MRCP). Maximum intensity projection 3-D reconst ructions of the volumetric data were created by the technologist. Postcontrast sequences included cor onal LAVA-flex and time course of axial T1-weighted LAVA. COMPARISON: CT abdomen and pelvis 04/12/2023 FINDINGS: ABDOMEN MRI: There is moderate intrahepatic biliary duct dilatation. There is a 2.1 cm cyst in the ga llbladder fossa, likely residual gallbladder neck. The common duct is dilated to 13 mm. There is a 16 mm stone in the common bile duct. The spleen is normal. There is a 4 mm cystic lesion in the body of the pancreas that communicates with the main pancreatic duct, which is normal in caliber. The adrena l glands are normal. There are cysts in the kidneys measuring up to 5.5 cm on the right. There are no dilated loops of bowel. There are no pathologically enlarged lymph nodes. There is no free intraperi toneal fluid. There are multiple chronic vertebral body fractures in the spine. ABDOMEN MRCP: There is intrahepatic and extrahepatic biliary duct dilatation. There is a 16 mm stone in the common bile duct. IMPRESSION: 1. 16 mm stone in the common bile duct with intrahepatic and extrahepatic biliary duct dilatation. 2. 4 mm cystic lesion in the body of the pancreas. The differential diagnosis includes pseudocyst, in traductal papillary mucinous neoplasm (IPMN), mucinous cystic neoplasm (MCN), serous cystadenoma, and neuroendocrine tumor. Consider abdomen MRI without and with contrast in 2 years. Reviewed, dictated and finalized at location A. L PRODUCTS I ASSEMBLER IMPRESSION: 1. 16 mm stone in the common bile duct with intrahepatic and extrahepatic bilia ry duct dilatation. 2. 4 mm cystic lesion in the body of the pancreas. The differential diagnosis i ncludes pseudocyst, intraductal papillary mucinous neoplasm (IPMN), mucinous cy stic neoplasm (MCN), serous cystadenoma, and neuroendocrine tumor. Consider abd omen MRI without and with contrast in 2 years.
--- NOTE | ~2023-04-12 | CT_ITS ---
EXAMINATION: CT chest abdomen pelvis w con DATE: 04/12/2023 17:23 INDICATION: Severe sepsis, shortness of breath and elevated liver function tests. TECHNIQUE: Computed tomography (CT) of the chest, abdomen, and pelvis was performed with 100 mL Omnip aque-350 intravenous contrast. Automated exposure control and iterative reconstruction technique were employed. The dose-length product was 1493.50 mGy-cm. COMPARISON: 11/30/2019 FINDINGS: CHEST CT: Mild peripheral reticular pattern with associated cystic lung disease which could represent honeycomb ing in the setting of usual interstitial pneumonia (UIP) pattern chronic interstitial lung disease or mild emphysema with superimposed atelectasis or mild pulmonary edema. Calcified left lower lobe nodu le along with calcified left hilar lymph nodes consistent with old granulomatous disease. Cardiomegal y. Small pericardial effusion. Atherosclerotic coronary artery calcifications. Likely left atrial stevo endage occlusion device. Thoracic aorta is normal in caliber with no dissection. Multinodular goiter with 6.4 cm right thyroid mass. No pathologically enlarged thoracic lymphadenopathy. Left latissimus dorsi intramuscular lipoma. There are few old healed bilateral rib fractures. Chronic superior endpla te compression fracture T11. There is a second superior endplate compression fracture at at T9 which appears chronic but which is new since the prior study. ABDOMEN/PELVIS CT: There is mild intrahepatic biliary ductal dilation as well as dilation of the common bile duct which measures up to 1.8 cm maximal diameter. There is suggestion of soft tissue density material in the di stal common bile duct. There is a 2.8 x 2.2 cm loculated fluid collection at the site of a prior larg er multiloculated abscess at the gallbladder fossa which without inflammatory stranding in the immedi ately adjacent fat. Again seen are parapelvic cysts at the upper pole of the right kidney measuring u p to 5.1 cm. Pancreas, spleen, bilateral adrenal glands and left kidney are normal. There is moderate colonic diverticulosis with a sigmoid predominance. There is no adjacent inflammatory change to sug gest diverticulitis. Small bowel and appendix are normal. Bladder is normal. No free intraperitoneal gas . There is a minimal amount of perihepatic ascites. No pathologically enlarged abdomen and pelvi s. There is calcified atherosclerosis of the aorta and many of the other arteries. Chronic appearing compression fractures at L1, L2 and L3 which are new or have progressed since the prior study. Sever e lower lumbar spondylosis. Antegrade intramedullary vicki and interlocking femoral neck screw fixation s at the left and right femurs. IMPRESSION: 1. New intra and extrahepatic biliary ductal dilation with suggestion of some high attenuation materi al within the distal common bile duct which could represent sludge, gallstones or neoplasm. Given the elevated liver function tests would consider further evaluation with ERCP. 2. Cardiomegaly with chronic small pericardial effusion. 3. Mild peripheral lung disease which could represent either mild emphysema with superimposed atelect asis and mild pulmonary edema or more chronic UIP pattern chronic interstitial lung disease. 4. 6.4 cm right thyroid mass. Consider ultrasound-guided biopsy. 5. 2.8 x 2.2 cm loculated fluid collection at the mehdi hepatis at the site of a prior abscess. Diffe rential would include residual abscess however there is no surrounding inflammatory stranding to more specifically suggest this. This could represent a residual sterile seroma, dilated portion of the cy stic duct or gallbladder remnant. 6. Residual minimal amount of perihepatic ascites. 7. Diverticulosis. Reviewed, dictated and finalized at location A. ERCIAL DRONE SOFTWARE DEVELOPER IMPRESSION: 1.
--- NOTE | ~2023-04-12 | XR_ITS ---
EXAMINATION: XR ERCP DATE: 04/15/2023 14:56 INDICATION: Choledocholithiasis TECHNIQUE: Multiple spot fluoroscopic images of the right upper quadrant were obtained during endosco pic retrograde cholangiopancreatography (ERCP) performed by Dr. Estrada. Radiologist was not present fo r the imaging or procedure. The amount of fluoroscopy time used during this procedure was 1.7 minutes . COMPARISON: CT dated 04/12/2023 FINDINGS/IMPRESSION: Cannulation and retrograde contrast injections into the common bile duct which demonstrates a few ananth ewhat irregular lucent filling defects suspicious for sludge balls and/or choledocholithiasis. IMPRESSION: 1. Sludge versus gallstones in the distal common bile duct. Please refer to the ERCP procedure note f or additional details. Reviewed, dictated and finalized at location A. CAST PATTERNMAKER IMPRESSION: 1. Sludge versus gallstones in the distal common bile duct. Please refer to the ERCP procedure note for additional details.
--- NOTE | ~2023-04-12 | XR_ITS ---
EXAMINATION: XR ERCP DATE: 04/18/2023 13:44 INDICATION: Choledocholithiasis. TECHNIQUE: 2 spot fluoroscopic images of the right upper quadrant were obtained during endoscopic ret rograde cholangiopancreatography (ERCP). Fluoroscopy exposure time was 268 seconds. COMPARISON: MRCP 04/17/23 FINDINGS: There is a stone in the common duct. The common duct is dilated. IMPRESSION: 1. Choledocholithiasis. Please refer to the ERCP procedure note for additional details. Reviewed, dictated and finalized at location A. T EVALUATION SUPERVISOR
--- NOTE | 2023-04-12 15:52 | ECG_ITS ---
Measurements Intervals [place] Rate: 136 P: [place]: 0 QRS: 17 QRSD: 79 T: -12 QT: 287 QTc: 433 Interpretive Statements ATRIAL FIBRILLATION WITH RAPID VENTRICULAR RESPONSE ANTEROSEPTAL INFARCT, AGE INDETERMINATE BORDERLINE ST-T WAVE ABNORMALITY- DIFFUSE LEADS BASELINE WANDER- II, III, AVF, V1-V6 ABNORMAL ECG COMPARED TO ECG 03/11/2023 20:19:12 HEART RATE HAS INCREASED Electronically Signed On 04-12-2023 16:19:29 TRANSITIONAL CARE LIAISON by Michael Cedeno D.O.
[2023-04-12 16:08] LABS: Basophils Percent Auto 0.2 % (0.2-1.2); Eosinophils Percent Auto 0.1 % (0-4.4); Hematocrit 38.4 % (42.0-52.0); Hemoglobin 12.7 g/dL (14.0-18.0); Immature Granulocyte Absolute 0.04 K/mm3 (0.00-0.031); Immature Granulocyte Percent A 0.3 % (0-0.5); Lymphocytes Absolute Auto 0.54 K/mm3 (0.9-3.2); Lymphocytes Percent Auto 4.4 % (18.3-44.2); Mean Corpuscular HGB Conc 33.1 g/dl (32-36); Mean Corpuscular Hemoglobin 31.6 pg (26-34); Mean Corpuscular Volume 95.5 fl (80-100); Mean Platelet Volume 10.8 fl (7.4-10.4); Monocytes Absolute Auto 0.6 K/mm3 (0.1-0.6); Monocytes Percent Auto 5.1 % (2.6-8.5); Neutrophils Percent Auto 89.9 % (45.5-73.1); Platelet Count Result 168 k/mm3 (150-375); Red Blood Count 4.02 M/mm3 (4.6-6.20); Red Cell Distribution Width 13.5 % (11.5-14.5); White Blood Count 12.2 K/mm3 (4.5-10.0)
--- NOTE | 2023-04-12 16:08 | ED.SOB ---
HPI - SOB/Dyspnea General Chief Complaint: Shortness of Breath/Dyspnea Stated Complaint: SOB, weak, lethargy Time Seen by Provider: 04/12/23 15:36 History of Present Illness HPI Narrative: Patient is a 72-year-old male presenting with shortness of breath and lethargy. He is coming from a nursing facility. Staff noticed that he seemed weaker than normal today. He tells me that he has been feeling short of breath for the last day. He also complains of a sore throat. He otherwise denies complaints. No chest pain, nausea vomiting, dysuria. No abdominal pain. Related Data Home Medications Medication Instructions Recorded Confirmed thiamine HCl (vitamin B1) 100 mg 100 mg PO DAILY 02/26/20 06/09/21 tablet cholecalciferol (vitamin D3) 125 125 mcg PO DAILY 03/28/20 06/09/21 mcg (5,000 unit) capsule metoprolol tartrate 50 mg tablet 100 mg PO Q12HR 01/25/21 06/09/21 furosemide 40 mg tablet 40 mg PO DAILY 06/09/21 06/09/21 loperamide 2 mg capsule 2 mg PO DAILY 06/09/21 06/09/21 multivitamin with minerals 1 tablet PO DAILY 06/09/21 06/09/21 olmesartan 40 1 tablet PO HS 06/09/21 06/09/21 mg-hydrochlorothiazide 12.5 mg tablet pravastatin 40 mg tablet 40 mg PO HS 06/09/21 06/09/21 terazosin 10 mg capsule 10 mg PO HS 06/09/21 06/09/21 Allergies Allergy/AdvReac Type Severity Reaction Status Date / Time Penicillins AdvReac Unknown Verified 04/12/23 15:38 Review of Systems Review of Systems: All systems reviewed & are unremarkable except as noted in HPI and below PMFSH Past Medical History Medical History Acute cholecystitis 07/2019 treated with antibiotic therapy, no cholecystectomy due to being a poor surgical candidate. 10/08/2019 - returned to hospital with intra-abdominal abscess in the gallbladder fossa and extending around liver - thought to be related to gallbladder perforation. Treated with antibiotics and percutaneous drainage x 3. Alcohol abuse Anxiety Anxiety Atrial fibrillation Atrial fibrillation BPH (benign prostatic hyperplasia) BPH (benign prostatic hyperplasia) CHF (congestive heart failure) CHF (congestive heart failure) Echocardiogram on 10/20/19 showing EF 55-60% with variable contractility due to atrial fibrillation. Aortic valve sclerosis without hemodynamically significant stenosis by Doppler. Trace TR, moderate pulmonary hypertension. Small circumferential pericardial effusion. Chronic anemia COPD (chronic obstructive pulmonary disease) COPD (chronic obstructive pulmonary disease) Dementia Essential hypertension GERD (gastroesophageal reflux disease) GERD (gastroesophageal reflux disease) Histoplasmosis Retinal histoplasmosis and very poor vision History of BPH History of TIAs Hyperlipidemia Vitamin D deficiency Surgical History Surgical History History of bilateral cataract extraction History of cholecystectomy History of vasectomy Male circumcision S/P cholecystectomy Family History Family History Sibling Polio Father Lung cancer Mother Hypertension Social History Social History Social History: His paperwork says he is from at [facility]. The patient was where which facility came from this time. Patient was drinking (3) 4 oz drinks of Tequila a day prior to his hospitalization in July. He was recently hospitalized for a month and discharged to [facility] on 11/09/19 from [place]. Primary care physician: Dr. Jean-Claude Crawford Code status: Full code. Surrogate decision maker is Raine phone number [phone]. The patient has 2 children. 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 Smoking packs per day: 1 Smoking cigarettes per day: 20.0 Years smoked: 56 Smoking pack-years: 56.00 Smoking stat
[2023-04-12] MEDS: SODIUM CHLORIDE 0.9% IV 1,000 ML 999 ML IV CONT ×3 (16:14→18:49)
[2023-04-12 16:20] LABS: INR 1.1; Prothrombin Time 14.8 Seconds (11.1-14.7)
[2023-04-12 16:21] LABS: Partial Thromboplastin Time 28.9 SECONDS (22.3-36.8)
[2023-04-12 16:28] LABS: Lipase 81 U/L (23-300)
[2023-04-12 16:29] LABS: Alanine Aminotransferase 107 U/L (6-50); Albumin Level 3.3 g/dL (3.5-5.1); Alkaline Phosphatase 780 U/L (38-126); Anion Gap 10 mmol/L (8-16); Aspartate Amino Transferase 126 U/L (17-59); Bilirubin,Total 5.4 mg/dL (0.2-1.3); Blood Urea Nitrogen 14 mg/dL (9-20); Calcium 7.9 mg/dL (8.4-10.2); Carbon Dioxide 22 mmol/L (22-30); Chloride 105 mmol/L (98-107); Estimated CRCL calculation 73 ml/min; Estimated Glomerular Filt Rate > 60; Glucose 140 mg/dL (65-110); Lactic Acid Reflex 1.2 mmol/L (0.7-2.0); Potassium 3.4 mmol/L (3.4-5.0); Sodium 137 mmol/L (137-145)
[2023-04-12 16:41] LABS: Troponin I < 0.012 ng/mL (0.000-0.034)
[2023-04-12] MEDS: KETOROLAC 30 MG/ML VIAL (*BKC) IV PUSH (17:28)
--- NOTE | 2023-04-12 19:21 | PC.NURSE ---
THIS RN ASSUMED CARE OF PATIENT. THIS RN TOOK PATIENT REPORT FROM GAURAV TALAVERA.
[2023-04-12 19:28] LABS: Influenza A QL RT-PCR Negative (Negative); Influenza B QL RT-PCR Negative (Negative); RSV RNA, RT-PCR Positive (Negative); SARS-CoV-2 RNA PCR Negative (Negative)
[2023-04-12 19:51] LABS: Appearance Urine Clear (Clear); Bacteria Urine 4+ /hpf; Bilirubin Urine 3+ (Negative); Blood Urine Negative (Negative); Color Urine Dark Yellow (Yellow); Glucose Urine UA Negative (Negative); Ketones Urine 1+ mg/dL (Negative); Leukocyte Esterase Ur 1+ LEU/UL (Negative); Need Manual Microscopic Reviewed; Nitrate Urine Positive (Negative); Non Pathogenic Casts 0-2; Protein Urine Trace mg/dL (Negative); RBC Urine 0-2 /hpf (0-2); Squamous Epithelial Cell Urine Few /hpf (Few); WBC Urine 51-100 /hpf
[2023-04-12 20:04] LABS: Specific Grav Ur 1.058 (1.001-1.035)
[2023-04-12] MEDS: METOPROLOL TARTRATE INJ 5 MG/5 ML VIAL IV PUSH (20:04)
[2023-04-12 20:05] LABS: Add Urine Microscopic? YES
[2023-04-12] MEDS: cefTRIAXone 2 GM/NS 100 ML 2 GM/100 ML BAG IVPB (20:20)
[2023-04-12] MEDS: metroNIDAZOLE 500 MG/ISO 100ML 500 MG/100 ML BAG 100 MG IVPB (21:13)
[2023-04-12] MEDS: MAGNESIUM SULF 4 GM/WATER100ML 4 GM/100 ML BAG IVPB (21:14)
[2023-04-12 21:47] LABS: Troponin I < 0.012 ng/mL (0.000-0.034)
--- NOTE | 2023-04-12 21:54 | PC.NURSE ---
This RN contacted Raine, pt to give an update.
--- NOTE | 2023-04-12 23:22 | PM.IMHP ---
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 At the time my evaluation the patient was noted to have significant cough. He received 125 mg of Solu-Medrol and DuoNeb per EMS. The patient himself cannot provide any history regarding why he came to the hospital. He is alert oriented to himself and date of and knows that he is in [place]. He is not oriented as to the current month or circumstances like came to the hospital. He denies any pain. He does have chronic hearing loss which also does not help in the history process. Patient is irritable and not all that cooperative with history process. Review of Systems Review of Systems: ROS unobtainable: Yes unobtainable due to mental status PMFSH Past Medical History Medical History (Updated 04/13/23 @ 07:16 by Adrianna Mcmillan DO) Acute cholecystitis 07/2019 treated with antibiotic therapy, no cholecystectomy due to being a poor surgical candidate. 10/08/2019 - returned to hospital with intra-abdominal abscess in the gallbladder fossa and extending around liver - thought to be related to gallbladder perforation. Treated with antibiotics and percutaneous drainage x 3. Alcohol abuse Anxiety Atrial fibrillation BPH (benign prostatic hyperplasia) CHF (congestive heart failure) Echocardiogram on 10/20/19 showing EF 55-60% with variable contractility due to atrial fibrillation. Aortic valve sclerosis without hemodynamically significant stenosis by Doppler. Trace TR, moderate pulmonary hypertension. Small circumferential pericardial effusion. Chronic anemia COPD (chronic obstructive pulmonary disease) Dementia Essential hypertension GERD (gastroesophageal reflux disease) Histoplasmosis Retinal histoplasmosis and very poor vision History of BPH History of TIAs Hyperlipidemia Vitamin D deficiency Surgical History Surgical History History of bilateral cataract extraction History of cholecystectomy History of vasectomy Male circumcision S/P cholecystectomy Family History Family History Sibling [place]ako Father Lung cancer Mother Hypertension Social History Social History (Updated 04/13/23 @ 07:14 by Adrianna Mcmillan DO) Social History: Patient was drinking (3) 4 oz drinks of Tequila a day prior to his hospitalization in July 2019. Code status: Full code. Surrogate decision maker is Raine phone number [phone]. The patient has 2 children. 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 Smoking packs per day: 1 Smoking cigarettes per day: 20.0 Years smoked: 64 Smoking pack-years: 64.00 Smoking status: Smoker, status unknown Tobacco type: cigarettes Second hand tobacco smoke exposure: Yes Smoking end date: 10/08/19 Alcohol intake: former Drinks per week: 21 Substance use: never Substance use type: does not use Other substance usage details: Last drink was 2 years ago. Last use: 1971 Do You Feel Safe in your Home?: Yes Lack of Transportation: No Lack of Food: Never True Current Housing: I Have Housing Concerned About Future Housing: No Difficulty Paying Gas/Electric Bills: No Difficulty Paying for Meds: No Currently Unemployed: No Education: Associate Degree Difficulty w/ Childcare or Family Care: No Living arrangements: shelter Additional living arrangements comments: [place] since recent hospitalization Occupation/Education:
[2023-04-12] MEDS: SODIUM CHLORIDE 0.9% IV 1,000 ML 100 ML IV CONT (23:26)
[2023-04-13] VITALS (23 sets, daily range): BP systolic 126–154; BP diastolic 71–98; PULSE 69–102; RESP 16–20; TEMP 36.3–36.7; O2SAT 92–100
--- NOTE | 2023-04-13 00:20 | ADMGEN ---
This patient, Lloyd Redman, was admitted to IMU Room 202-01 on 04/12/22 at 2250. Patient/family oriented to hospital policies and general routines including ID bracelet, bed and alarms, visiting hours, pain management, procedures, bathroom and other care routines, personal items, smoking policy, room service/diet, and visiting hours. Pt unable to answer H&P questions at this time. H&P obtained from a previous admission. Information on how to activate the Rapid Response Team has been discussed. Patient/Family are encouraged to report perceived risks to care and to ask questions if they do not understand what they are told or what they should do.
[2023-04-13 01:07] LABS: Troponin I < 0.012 ng/mL (0.000-0.034)
[2023-04-13 06:49] LABS: Hematocrit 38.6 % (42.0-52.0); Hemoglobin 12.4 g/dL (14.0-18.0); Immature Granulocyte Absolute 0.02 K/mm3 (0.00-0.031); Immature Granulocyte Percent A 0.3 % (0-0.5); Lymphocytes Absolute Auto 0.49 K/mm3 (0.9-3.2); Mean Corpuscular HGB Conc 32.1 g/dl (32-36); Mean Corpuscular Hemoglobin 31.8 pg (26-34); Mean Platelet Volume 10.4 fl (7.4-10.4); Monocytes Absolute Auto 0.1 K/mm3 (0.1-0.6); Monocytes Percent Auto 1.6 % (2.6-8.5); Neutrophils Absolute Auto 5.5 K/mm3 (1.3-6.7); Neutrophils Percent Auto 90.1 % (45.5-73.1); Platelet Count Result 169 k/mm3 (150-375); Red Cell Distribution Width 13.6 % (11.5-14.5); White Blood Count 6.1 K/mm3 (4.5-10.0)
[2023-04-13] MEDS: metroNIDAZOLE 500 MG/ISO 100ML 500 MG/100 ML BAG 100 MG IVPB ×3 (06:58→23:07)
[2023-04-13 07:06] LABS: Alanine Aminotransferase 101 U/L (6-50); Albumin Level 2.9 g/dL (3.5-5.1); Alkaline Phosphatase 699 U/L (38-126); Anion Gap 10 mmol/L (8-16); Aspartate Amino Transferase 108 U/L (17-59); Bilirubin,Total 3.9 mg/dL (0.2-1.3); Blood Urea Nitrogen 11 mg/dL (9-20); Calcium 7.5 mg/dL (8.4-10.2); Carbon Dioxide 21 mmol/L (22-30); Chloride 110 mmol/L (98-107); Estimated CRCL calculation 92 ml/min; Estimated Glomerular Filt Rate > 60; Glucose 139 mg/dL (65-110); Potassium 3.1 mmol/L (3.4-5.0); Sodium 141 mmol/L (137-145)
[2023-04-13] MEDS: IPRATROPIUM BR 0.02% INH SOLN 0.5 MG/2.5 ML VIAL INHALATION ×3 (07:39→21:05)
[2023-04-13] MEDS: ALBUTEROL SULFATE NEB 2.5 MG/3 ML INH INHALATION ×3 (07:39→21:05)
[2023-04-13] MEDS: FLUTICASONE/SALMETEROL 45-21 MCG INHALER 1 PUFF 2 PUFF INHALATION ×2 (07:39→21:05)
[2023-04-13] MEDS: TERAZOSIN HCL 5 MG CAPSULE 10 MG PO (08:49)
[2023-04-13] MEDS: PANTOPRAZOLE 40 MG TABLET PO (08:49)
[2023-04-13] MEDS: ACIDOPHILUS/BULGARICUS CHEWABLE TABLET 1 TABLET PO ×2 (08:49→16:38)
[2023-04-13] MEDS: ASPIRIN 81 MG ENTERIC TABLET PO (08:50)
[2023-04-13] MEDS: amLODIPine BESYLATE 5 MG TABLET PO (08:50)
[2023-04-13] MEDS: METOPROLOL TARTRATE 50 MG TAB 100 MG PO ×2 (08:50→20:55)
[2023-04-13] MEDS: FOLIC ACID 1 MG TABLET PO (08:50)
[2023-04-13] MEDS: SENNOSIDES 8.6 MG TABLET PO ×2 (08:50→16:38)
--- NOTE | 2023-04-13 11:12 | WPDGICN ---
Assessment and Plan Assessment and plan (1) Obstructive jaundice: Code(s): K83.1 - Obstruction of bile duct Status: Acute Assessment and Plan: CT scan suggest obstruction in the distal common bile duct, either stone material or soft tissue. Previous CT scans had shown abscesses in the infrarenal area, the gallbladder fossa. 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 (2) Respiratory syncytial virus (RSV): Code(s): B33.8 - Other specified viral diseases Status: Acute Assessment and Plan: this admission was actually because at the detention he was noted to be lethargic and with pulmonary congestion. He denies being short of breath now but does have chronically breath sounds. 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 (5) Altered mental status: Qualifiers: Altered mental status type: unspecified Qualified Code(s): R41.82 - Altered mental status, unspecified Code(s): R41.82 - Altered mental status, unspecified Status: Acute (6) Gallbladder abscess: Code(s): K81.0 - Acute cholecystitis Status: Acute Assessment and Plan: With the last 2 years he has had multiple treatments with percutaneous drainage and antibiotic therapy for recurrent abscesses which are apparently finally gone. Plan Will schedule him tentatively for ERCP to be done on Saturday. GI Consult Note Consult date/time: 04/13/23 11:12 HPI: Lloyd Redman is a 72 year old male who I am asked to see because of a dilated common bile duct on imaging and also elevation of liver enzymes. He denies having abdominal pain. His history is not reliable as he is not well oriented. He does know his name however. Review of the chart indicates that he had gallbladder problems over 3 years ago requiring a cholecystectomy. I could not find the exact date of that surgery but he has had multiple admissions requiring drainage of abscesses in the area of the portal hepatis. CT scan reveals; 1. New intra and extrahepatic biliary ductal dilation with suggestion of some high attenuation material within the distal common bile duct which could represent sludge, gallstones or neoplasm. Given the elevated liver function tests would consider further evaluation with ERCP. 2. Cardiomegaly with chronic small pericardial effusion. 3. Mild peripheral lung disease which could represent either mild emphysema with superimposed atelectasis and mild pulmonary edema or more chronic UIP pattern chronic interstitial lung disease. 4. 6.4 cm right thyroid mass. Consider ultrasound-guided biopsy. 5. 2.8 x 2.2 cm loculated fluid collection at the mehdi hepatis at the site of a prior abscess. Differential would include residual abscess however there is no surrounding inflammatory stranding to more specifically suggest this. This could represent a residual sterile seroma, dilated portion of the cystic duct or gallbladder remnant. 6. Residual minimal amount of perihepatic ascites. 7. Diverticulosis. HIS HISTORY IS FURTHER COMPLICATED BY THE FACT THAT HE HAS CHRONIC ATRIAL FIBRILLATION. HE HAD BEEN ANTICOAGULATED. HE THEN HAD A FALL AT HIS HOME AND IN JULY 2021 WAS BRIEFLY ADMITTED HERE AND WENT MR I SHOWED INTRACRANIAL HEMORRHAGE, HE WAS TRANSFERRED TO [facility] FOR FURTHER CARE. HE ALSO HAS DIFFICULTY HEARING AND VISION IS AFFECTED BY PRIOR INFECTION, APPARENTLY HISTOPLASMOSIS. Review of Systems Review of Systems: All systems reviewed & are unremarkable except as noted in HPI and below PMFSH Past Me
--- NOTE | 2023-04-13 14:00 | PM.IMPN ---
Progress Note: A&P Assessment and Plan (1) Respiratory syncytial virus (RSV): Code(s): B33.8 - Other specified viral diseases Status: Acute (2) Atrial fibrillation with RVR: Code(s): I48.91 - Unspecified atrial fibrillation Status: Acute (3) UTI (urinary tract infection): Qualifiers: Hematuria presence: without hematuria Urinary tract infection type: site unspecified Qualified Code(s): N39.0 - Urinary tract infection, site not specified Code(s): N39.0 - Urinary tract infection, site not specified Status: Acute (4) Biliary and gallbladder disorder: Code(s): K83.9 - Disease of biliary tract, unspecified Status: Acute (5) COPD exacerbation: Code(s): J44.1 - Chronic obstructive pulmonary disease with (acute) exacerbation Status: Acute (6) Hypomagnesemia: Code(s): E83.42 - Hypomagnesemia Status: Acute Plan Patient has COPD exacerbation secondary to acute RSV infection. He will continue with supportive care with Tylenol, breathing treatments and oxygen if needed. The patient CT does demonstrate evidence of new intrahepatic and extrahepatic biliary duct dilatation with high attenuation material distal common bile duct. Labs also demonstrate hyperbilirubinemia and transaminitis suggesting biliary process. Patient did not have any abdominal pain on exam. Patient is a poor historian and does not report any urinary symptoms the UA is suggestive of possible UTI. He is afebrile he does have some mild leukocytosis. He was placed on antibiotic therapy with Rocephin and Flagyl to cover for intra-abdominal pathology and or UTI. Blood cultures and urine cultures are pending. Patient did fit sepsis criteria on initial presentation with leukocytosis tachycardia with AFib RVR in the setting of possible infection. Cultures are pending. Antibiotics as discussed above. Patient responded well to IV fluid hydration and tachycardia has resolved. Will transfer the patient to the medical floor with telemetry. Will resume home cardiac medications. Patient had low magnesium in the ER was given supplements. With magnesium supplements patient's heart rate stabilized. Subjective Date/time seen: 04/13/23 0900 Interval history: snf reported patient was congested lethargic and they thought he may have a UTI Narrative: 72-year-old male with past medical history of alcoholism, atrial fibrillation, heart failure, intracranial hemorrhage (06/2021) old CVAs, COPD requiring prior intubations and was difficult to wean from the vent in 2021 who presented to the ER from [address] via EMS due to shortness of breath and lethargy.? At the time my evaluation the patient was noted to have significant cough.? He received 125 mg of Solu-Medrol and DuoNeb per EMS.? The patient himself cannot provide any history regarding why he came to the hospital.? He is alert oriented to himself and date of and knows that he is in [place].? He is not oriented as to the current month or circumstances like came to the hospital.? He denies any pain.? He does have chronic hearing loss which also does not help in the history process.? Patient is irritable and not all that cooperative with history process Interval Hx: 04/13/2023: pt seen this am, he denies any sob, chest, n/v at this time. Review of Systems Review of Systems: All systems reviewed & are unremarkable except as noted in HPI and below Exam Narrative: Weight 91 kg BMI 27.2 Const: Other: No acute distress, well-developed well-nourished HENMT: Other: Poor dentition, multiple teeth broken off at the gumline, mucous membranes are tacky, no oral pharyngeal erythema Eyes: Other: Pupils equal and reactive, no scleral icterus, no conjunctival pallor Neck: Other: No JVD, no gross lymphadenopathy, nontender Resp: Other: Diffuse wheezing bilaterally anterior lung fi
--- NOTE | 2023-04-13 18:58 | PC.NURSE ---
This patient, Lloyd Redman, transferred from IMU to [address] [place] [address] 249 at 1855, report from Latha NOLASCO.
[2023-04-13] MEDS: ATORVASTATIN 10 MG TABLET PO (20:56)
[2023-04-13] MEDS: LOSARTAN POTASSIUM 100 MG TABLET PO (20:56)
[2023-04-14] VITALS (15 sets, daily range): BP systolic 134; BP diastolic 89–94; PULSE 62–116; RESP 18–20; TEMP 36.4–36.5; O2SAT 95–96
[2023-04-14] MEDS: ALBUTEROL SULFATE NEB 2.5 MG/3 ML INH INHALATION ×4 (02:49→20:48)
[2023-04-14] MEDS: IPRATROPIUM BR 0.02% INH SOLN 0.5 MG/2.5 ML VIAL INHALATION ×4 (02:49→20:48)
[2023-04-14] MEDS: metroNIDAZOLE 500 MG/ISO 100ML 500 MG/100 ML BAG 100 MG IVPB ×3 (06:07→22:00)
--- NOTE | 2023-04-14 07:58 | PM.IMPN ---
Progress Note: A&P Assessment and Plan (1) Respiratory syncytial virus (RSV): Code(s): B33.8 - Other specified viral diseases Status: Acute Assessment and Plan: - continue isolation per protocol -continue oxygen therapy titration maintain SpO2 above 92% (2) Atrial fibrillation with RVR: Code(s): I48.91 - Unspecified atrial fibrillation Status: Acute Assessment and Plan: -continue monitor tech -continue home medication metoprolol p.o. (3) UTI (urinary tract infection): Qualifiers: Hematuria presence: without hematuria Urinary tract infection type: site unspecified Qualified Code(s): N39.0 - Urinary tract infection, site not specified Code(s): N39.0 - Urinary tract infection, site not specified Status: Acute Assessment and Plan: -urine culture pending -continue ceftriaxone 1 g Q 24 hours (4) COPD exacerbation: Code(s): J44.1 - Chronic obstructive pulmonary disease with (acute) exacerbation Status: Acute Assessment and Plan: -continue bronchodilator therapy -continue DuoNeb therapy q.6 hours as needed for wheezing, shortness of breath (5) Hypomagnesemia: Code(s): E83.42 - Hypomagnesemia Status: Acute Assessment and Plan: -continue home medication (6) Essential hypertension: Code(s): I10 - Essential (primary) hypertension Status: Chronic (7) History of BPH: Code(s): Z87.438 - Personal history of other diseases of male genital organs Status: Chronic (8) GERD (gastroesophageal reflux disease): Qualifiers: Esophagitis presence: esophagitis presence not specified Qualified Code(s): K21.9 - Gastro-esophageal reflux disease without esophagitis Code(s): K21.9 - Gastro-esophageal reflux disease without esophagitis Status: Chronic Assessment and Plan: -continue PPI (9) Histoplasmosis: Code(s): B39.9 - Histoplasmosis, unspecified Status: Acute Assessment and Plan: -chronic, related to his poor vision loss of eyesight Plan -DC indomethacin -NPO after midnight SCDs Subjective Date/time seen: 04/14/23 07:58 Interval history: Narrative: 72-year-old male with past medical history of alcoholism, atrial fibrillation, heart failure, intercranial hemorrhage (06/2021) old CVAs, COPD requiring prior intubations and was difficult to wean from the vent in 2021 who presented to the ER from [address] via EMS due to shortness of breath and lethargy.? At the time my evaluation the patient was noted to have significant cough.? He received 125 mg of Solu-Medrol and DuoNeb per EMS.? The patient himself cannot provide any history regarding why he came to the hospital.? He is alert oriented to himself and date of and knows that he is in [place].? He is not oriented as to the current month or circumstances like came to the hospital.? He denies any pain.? He does have chronic hearing loss which also does not help in the history process.? Patient is irritable and not all that cooperative with history process 04/14/2023: pt seen this am, breathing tx in progress, he denies any chest pain, sob, n/v or vomiting. He states he had no overnight events. Review of Systems Review of Systems: All systems reviewed & are unremarkable except as noted in HPI and below Objective Data Vital Signs Vital Signs: Vital Signs - 24 hr 04/13/23 07:59 04/13/23 08:00 04/13/23 08:00 Temperature 97.5 F L Pulse Rate 96 96 Respiratory Rate 20 16 Blood Pressure 132/76 Pulse Oximetry 100 100 Oxygen Delivery Room Air 04/13/23 08:00 04/13/23 10:00 04/13/23 11:19 Temperature 98.1 F Pulse Rate 100 95 80 Respiratory Rate 16 Blood Pressure 126/88 Pulse Oximetry 97 Oxygen Delivery 04/13/23 12:00 04/13/23 13:31 04/13/23 14:00 Temperature Pulse Rate 102 H 78 91 Respiratory Rate 20 Blood Pressure Pulse Oximet
[2023-04-14] MEDS: FLUTICASONE/SALMETEROL 45-21 MCG INHALER 1 PUFF 2 PUFF INHALATION ×2 (09:46→20:48)
[2023-04-14] MEDS: METOPROLOL TARTRATE 50 MG TAB 100 MG PO ×2 (10:01→21:45)
[2023-04-14] MEDS: CHOLECALCIFEROL 1,000 UNITS TABLET 5000 UNITS PO (10:01)
[2023-04-14] MEDS: TERAZOSIN HCL 5 MG CAPSULE 10 MG PO (10:01)
[2023-04-14] MEDS: amLODIPine BESYLATE 5 MG TABLET PO (10:02)
[2023-04-14] MEDS: ACIDOPHILUS/BULGARICUS CHEWABLE TABLET 1 TABLET PO ×2 (10:04→16:28)
[2023-04-14] MEDS: ASPIRIN 81 MG ENTERIC TABLET PO (10:05)
[2023-04-14] MEDS: PANTOPRAZOLE 40 MG TABLET PO (10:06)
[2023-04-14] MEDS: FOLIC ACID 1 MG TABLET PO (10:06)
[2023-04-14] MEDS: SENNOSIDES 8.6 MG TABLET PO ×2 (10:06→16:28)
[2023-04-14] MEDS: LOSARTAN POTASSIUM 100 MG TABLET PO (21:45)
[2023-04-14] MEDS: ATORVASTATIN 10 MG TABLET PO (21:45)
[2023-04-15] VITALS (28 sets, daily range): BP systolic 120–165; BP diastolic 51–122; PULSE 56–137; RESP 16–22; TEMP 36.1–36.6; O2SAT 92–100
[2023-04-15] MEDS: IPRATROPIUM BR 0.02% INH SOLN 0.5 MG/2.5 ML VIAL INHALATION ×4 (01:49→20:33)
[2023-04-15] MEDS: ALBUTEROL SULFATE NEB 2.5 MG/3 ML INH INHALATION ×5 (01:49→20:33)
[2023-04-15] MEDS: metroNIDAZOLE 500 MG/ISO 100ML 500 MG/100 ML BAG 100 MG IVPB (05:00)
[2023-04-15] MEDS: FLUTICASONE/SALMETEROL 45-21 MCG INHALER 1 PUFF 2 PUFF INHALATION ×2 (07:33→20:33)
--- NOTE | 2023-04-15 08:32 | PC.NURSE ---
pt NPO awaiting procedure will administer meds when completed
--- NOTE | 2023-04-15 12:22 | ECG_ITS ---
Measurements Intervals [place] Rate: 96 P: [place]: 0 QRS: 28 QRSD: 88 T: -17 QT: 377 QTc: 476 Interpretive Statements ATRIAL FIBRILLATION CANNOT RULE OUT SEPTAL INFARCT, AGE INDETERMINATE BORDERLINE ST-T WAVE ABNORMALITY- ANT/INF LEADS BASELINE ARTIFACT- III, AVF ABNORMAL ECG COMPARED TO ECG 04/12/2023 16:20:02 HEART RATE HAS DECREASED Electronically Signed On 04-15-2023 12:52:07 CENTRAL OFFICE ASSOCIATE by Michael Cedeno D.O.
--- NOTE | 2023-04-15 13:11 | PC.NURSE ---
pt to GI lab for scheduled procedure
--- NOTE | 2023-04-15 13:40 | WPDANESEPPF ---
Anes - Initial Pre Proc Eval Procedure: Operation Date: 04/15/23 13:30 Proposed Procedures p Endoscopic Retro Cholangiopancreatogram - Rajesh Estrada MD Date/Time: 04/15/23 13:40 Surgeon: Adrianna Mcmillan DO Pre Op Diagnosis: afib, rvr, uti Patient Data Age: 72 Gender: M Height: 1.83 m Weight: 89.1 kg Last Vital Signs Temp 97 F L 04/15/23 13:06 Pulse 56 L 04/15/23 13:06 Resp 16 04/15/23 13:06 BP 162/94 H 04/15/23 13:06 Pulse Ox 97 04/15/23 13:06 O2 Del Method Room Air 04/15/23 08:30 Allergies Allergy/AdvReac Type Severity Reaction Status Date / Time Penicillins AdvReac Unknown Unknown Verified 04/15/23 13:33 Home Medications Medication Instructions Recorded Confirmed Type cholecalciferol (vitamin D3) 125 125 mcg PO Q48H 03/28/20 04/12/23 History mcg (5,000 unit) capsule metoprolol tartrate 50 mg tablet 100 mg PO Q12HR 01/25/21 04/12/23 History terazosin 10 mg capsule 10 mg PO QAM 06/09/21 04/12/23 History Lactobacillus acidoph-L.bulgaricus 1 tablet PO BID 04/12/23 04/12/23 History 1 million cell tablet acetaminophen 325 mg tablet 650 mg PO Q4H PRN Pain (Scale 04/12/23 04/12/23 History Score 1-3) albuterol sulfate 2.5 mg/3 mL 2.5 mg inhalation Q6H PRN Wheezing 04/12/23 04/12/23 History (0.083 %) solution for nebulization aspirin 81 mg tablet,delayed 81 mg PO DAILY 04/12/23 04/12/23 History release atorvastatin 10 mg tablet 10 mg PO HS 04/12/23 04/12/23 History fluticasone 100 mcg-salmeterol 50 1 ea inhalation QA 04/12/23 04/12/23 History mcg/dose blistr powdr for inhalation (Wixela Inhub) folic acid 1 mg tablet 1 mg PO QAM 04/12/23 04/12/23 History losartan 100 mg tablet 100 mg PO HS 04/12/23 04/12/23 History nystatin 100,000 unit/gram topical 1 applic topical Q12H PRN reddness 04/12/23 04/12/23 History powder omeprazole 20 mg capsule,delayed 20 mg PO QAM 04/12/23 04/12/23 History release ramelteon 8 mg tablet 8 mg PO QHS 04/12/23 04/12/23 History sennosides 8.6 mg tablet (senna) 8.6 mg PO BID 04/12/23 04/12/23 History amlodipine 5 mg tablet 5 mg PO QAM 04/13/23 04/13/23 History Patient hx anesthesia problems: none Family hx anesthesia problems: none Results Review: All pre-operative results and documents have been reviewed as part of the pre-operative evaluation. [facility] Past Medical History Medical History Acute cholecystitis 07/2019 treated with antibiotic therapy, no cholecystectomy due to being a poor surgical candidate. 10/08/2019 - returned to hospital with intra-abdominal abscess in the gallbladder fossa and extending around liver - thought to be related to gallbladder perforation. Treated with antibiotics and percutaneous drainage x 3. Alcohol abuse Anxiety Atrial fibrillation BPH (benign prostatic hyperplasia) CHF (congestive heart failure) Echocardiogram on 10/20/19 showing EF 55-60% with variable contractility due to atrial fibrillation. Aortic valve sclerosis without hemodynamically significant stenosis by Doppler. Trace TR, moderate pulmonary hypertension. Small circumferential pericardial effusion. Chronic anemia COPD (chronic obstructive pulmonary disease) Dementia Essential hypertension GERD (gastroesophageal reflux disease) Histoplasmosis Retinal histoplasmosis and very poor vision History of BPH History of TIAs Hyperlipidemia Vitamin D deficiency Surgical History Surgical History History of bilateral cataract extraction History of cholecystectomy History of vasectomy Male circumcision S/P cholecystectomy Family History Family History Sibling Polio Father Lung cancer Mother Hypertension Social History Social History Social History: Patient was drinking (3) 4 oz drinks of Tequila a day prior
--- NOTE | 2023-04-15 13:53 | SUR.PREOP ---
Left eye watering, slightly swollen. Pt stated bothers him some. ZAINAB Morales made aware.
--- NOTE | 2023-04-15 13:56 | PM.IMPN ---
Progress Note: A&P Assessment and Plan (1) Respiratory syncytial virus (RSV): Code(s): B33.8 - Other specified viral diseases Status: Acute Assessment and Plan: - continue isolation per protocol -continue oxygen therapy titration maintain SpO2 above 92% (2) Atrial fibrillation with RVR: Code(s): I48.91 - Unspecified atrial fibrillation Status: Acute Assessment and Plan: -continue sizing end bander -continue home medication metoprolol p.o. (3) UTI (urinary tract infection): Qualifiers: Hematuria presence: without hematuria Urinary tract infection type: site unspecified Qualified Code(s): N39.0 - Urinary tract infection, site not specified Code(s): N39.0 - Urinary tract infection, site not specified Status: Acute Assessment and Plan: Spoke with ID pharmacist in reference positive urine culture, -urine culture positive for E coli -d/c ceftriaxone 1 g Q 24 hours -start meropenem 1gm q 8 hrs IVPB (4) COPD exacerbation: Code(s): J44.1 - Chronic obstructive pulmonary disease with (acute) exacerbation Status: Acute Assessment and Plan: -continue bronchodilator therapy -continue DuoNeb therapy q.6 hours as needed for wheezing, shortness of breath (5) Hypomagnesemia: Code(s): E83.42 - Hypomagnesemia Status: Acute Assessment and Plan: -continue home medication (6) Essential hypertension: Code(s): I10 - Essential (primary) hypertension Status: Chronic (7) History of BPH: Code(s): Z87.438 - Personal history of other diseases of male genital organs Status: Chronic (8) GERD (gastroesophageal reflux disease): Qualifiers: Esophagitis presence: esophagitis presence not specified Qualified Code(s): K21.9 - Gastro-esophageal reflux disease without esophagitis Code(s): K21.9 - Gastro-esophageal reflux disease without esophagitis Status: Chronic Assessment and Plan: -continue PPI (9) Histoplasmosis: Code(s): B39.9 - Histoplasmosis, unspecified Status: Acute Assessment and Plan: -chronic, related to his poor vision loss of eyesight (10) Obstructive jaundice: Code(s): K83.1 - Obstruction of bile duct Status: Acute Assessment and Plan: ?CT scan suggest obstruction in the distal common bile duct, either stone material or soft tissue. ? Previous CT scans had shown abscesses in the infrarenal area, the gallbladder fossa.? -pt scheduled for ?Endoscopic Retro Cholangiopancreatogram Plan -DC indomethacin NPO, diet maintained by GI SCDs Anticipated hospital stay> 2 days Subjective Date/time seen: 04/15/23 13:56 Interval history: [facility] Narrative: 72-year-old male with past medical history of alcoholism, atrial fibrillation, heart failure, intercranial hemorrhage (06/2021) old CVAs, COPD requiring prior intubations and was difficult to wean from the vent in 2021 who presented to the ER from [address] via EMS due to shortness of breath and lethargy.? At the time my evaluation the patient was noted to have significant cough.? He received 125 mg of Solu-Medrol and DuoNeb per EMS.? The patient himself cannot provide any history regarding why he came to the hospital.? He is alert oriented to himself and date of and knows that he is in [place].? He is not oriented as to the current month or circumstances like came to the hospital.? He denies any pain.? He does have chronic hearing loss which also does not help in the history process.? Patient is irritable and not all that cooperative with history process 04/14/2023:?pt seen this am, breathing tx in progress, he denies any chest pain, sob, n/v? or vomiting. He states he had no overnight events. 04/15/2023: Pt seen this a.m, he is laying in bed resting with eyes open, he denies any c/o at this time. Pt has been NPO this a.m waiting to have EGD
[2023-04-15] MEDS: INDOMETHACIN 50 MG SUPP.RECT RECTAL (14:02)
[2023-04-15] MEDS: LACTATED RINGERS 1,000 ML 150 ML IV CONT (14:02)
--- NOTE | 2023-04-15 15:40 | SUR.PHASEII ---
1525: DR LOVE MADE AWARE OF PT'S BLOOD PRESSURE 154/122 AND 165/109, HR IN THE 90'S. NO NEW ORDERS. DR LOVE SAW PT.
--- NOTE | 2023-04-15 16:00 | PC.NURSE ---
pt returned from GI lab via stretcher, assisted back to bed, resting comfortably
[2023-04-15] MEDS: METOPROLOL TARTRATE 50 MG TAB 100 MG PO (20:18)
[2023-04-15] MEDS: MEROPENEM 1 GM/NS 100 ML 1 GM/100 ML BAG IVPB (20:26)
[2023-04-16] VITALS (15 sets, daily range): BP systolic 117–158; BP diastolic 74–99; PULSE 73–117; RESP 16–18; TEMP 36.1–37; O2SAT 91–95
[2023-04-16] MEDS: MEROPENEM 1 GM/NS 100 ML 1 GM/100 ML BAG IVPB ×3 (05:20→21:30)
[2023-04-16 06:19] LABS: Alanine Aminotransferase 123 U/L (6-50); Albumin Level 3.2 g/dL (3.5-5.1); Alkaline Phosphatase 632 U/L (38-126); Aspartate Amino Transferase 118 U/L (17-59); Bilirubin,Total 1.6 mg/dL (0.2-1.3)
[2023-04-16 07:16] LABS: Basophils Percent Auto 0.1 % (0.2-1.2); Hematocrit 41.1 % (42.0-52.0); Hemoglobin 13.2 g/dL (14.0-18.0); Immature Granulocyte Absolute 0.03 K/mm3 (0.00-0.031); Immature Granulocyte Percent A 0.3 % (0-0.5); Lymphocytes Absolute Auto 1.06 K/mm3 (0.9-3.2); Lymphocytes Percent Auto 12.1 % (18.3-44.2); Mean Corpuscular HGB Conc 32.1 g/dl (32-36); Mean Corpuscular Volume 99.5 fl (80-100); Mean Platelet Volume 11.3 fl (7.4-10.4); Monocytes Absolute Auto 0.4 K/mm3 (0.1-0.6); Monocytes Percent Auto 4.2 % (2.6-8.5); Neutrophils Absolute Auto 7.3 K/mm3 (1.3-6.7); Neutrophils Percent Auto 83.3 % (45.5-73.1); Platelet Count Result 204 k/mm3 (150-375); Red Blood Count 4.13 M/mm3 (4.6-6.20); Red Cell Distribution Width 13.8 % (11.5-14.5); White Blood Count 8.7 K/mm3 (4.5-10.0)
[2023-04-16 07:26] LABS: Alanine Aminotransferase 125 U/L (6-50); Albumin Level 3.1 g/dL (3.5-5.1); Alkaline Phosphatase 636 U/L (38-126); Anion Gap 6 mmol/L (8-16); Aspartate Amino Transferase 124 U/L (17-59); Bilirubin,Total 1.6 mg/dL (0.2-1.3); Blood Urea Nitrogen 15 mg/dL (9-20); Calcium 8.3 mg/dL (8.4-10.2); Carbon Dioxide 27 mmol/L (22-30); Chloride 104 mmol/L (98-107); Estimated CRCL calculation 81 ml/min; Estimated Glomerular Filt Rate > 60; Glucose 101 mg/dL (65-110); Potassium 3.4 mmol/L (3.4-5.0); Sodium 137 mmol/L (137-145)
[2023-04-16] MEDS: ALBUTEROL SULFATE NEB 2.5 MG/3 ML INH INHALATION ×3 (07:54→19:46)
[2023-04-16] MEDS: FLUTICASONE/SALMETEROL 45-21 MCG INHALER 1 PUFF 2 PUFF INHALATION ×2 (07:55→19:46)
[2023-04-16] MEDS: IPRATROPIUM BR 0.02% INH SOLN 0.5 MG/2.5 ML VIAL INHALATION ×3 (07:55→19:46)
[2023-04-16] MEDS: TERAZOSIN HCL 5 MG CAPSULE 10 MG PO (09:02)
[2023-04-16] MEDS: PANTOPRAZOLE 40 MG TABLET PO (09:02)
[2023-04-16] MEDS: CHOLECALCIFEROL 1,000 UNITS TABLET 5000 UNITS PO (09:02)
[2023-04-16] MEDS: SENNOSIDES 8.6 MG TABLET PO ×2 (09:02→16:47)
[2023-04-16] MEDS: ACIDOPHILUS/BULGARICUS CHEWABLE TABLET 1 TABLET PO ×2 (09:02→16:47)
[2023-04-16] MEDS: METOPROLOL TARTRATE 50 MG TAB 100 MG PO ×2 (09:03→21:26)
[2023-04-16] MEDS: FOLIC ACID 1 MG TABLET PO (09:03)
[2023-04-16] MEDS: amLODIPine BESYLATE 5 MG TABLET PO (09:04)
--- NOTE | 2023-04-16 11:01 | PM.IMPN ---
Progress Note: A&P Assessment and Plan (1) Respiratory syncytial virus (RSV): Code(s): B33.8 - Other specified viral diseases Status: Acute Assessment and Plan: - continue isolation per protocol -continue oxygen therapy titration maintain SpO2 above 92% (2) Atrial fibrillation with RVR: Code(s): I48.91 - Unspecified atrial fibrillation Status: Acute Assessment and Plan: -continue air sampling and monitoring -continue home medication metoprolol p.o. (3) UTI (urinary tract infection): Qualifiers: Hematuria presence: without hematuria Urinary tract infection type: site unspecified Qualified Code(s): N39.0 - Urinary tract infection, site not specified Code(s): N39.0 - Urinary tract infection, site not specified Status: Acute Assessment and Plan: -continue meropenem 1gm q 8 hrs IVPB (4) COPD exacerbation: Code(s): J44.1 - Chronic obstructive pulmonary disease with (acute) exacerbation Status: Acute Assessment and Plan: -continue bronchodilator therapy -continue DuoNeb therapy q.6 hours as needed for wheezing, shortness of breath (5) Hypomagnesemia: Code(s): E83.42 - Hypomagnesemia Status: Acute Assessment and Plan: -continue home medication (6) Essential hypertension: Code(s): I10 - Essential (primary) hypertension Status: Chronic (7) History of BPH: Code(s): Z87.438 - Personal history of other diseases of male genital organs Status: Chronic (8) GERD (gastroesophageal reflux disease): Qualifiers: Esophagitis presence: esophagitis presence not specified Qualified Code(s): K21.9 - Gastro-esophageal reflux disease without esophagitis Code(s): K21.9 - Gastro-esophageal reflux disease without esophagitis Status: Chronic Assessment and Plan: -continue PPI (9) Histoplasmosis: Code(s): B39.9 - Histoplasmosis, unspecified Status: Acute Assessment and Plan: -chronic, related to his poor vision loss of eyesight (10) Obstructive jaundice: Code(s): K83.1 - Obstruction of bile duct Status: Acute Assessment and Plan: EGD revealed:Abnormal major papilla Biliary filling defect -continue to Trend LFTs daily Plan advanced as ordered by GI SCDs Anticipated hospital stay> 2 days Subjective Date/time seen: 04/16/23 11:01 Interval history: Narrative: 72-year-old male with past medical history of alcoholism, atrial fibrillation, heart failure, intercranial hemorrhage (06/2021) old CVAs, COPD requiring prior intubations and was difficult to wean from the vent in 2021 who presented to the ER from [address] via EMS due to shortness of breath and lethargy.? At the time my evaluation the patient was noted to have significant cough.? He received 125 mg of Solu-Medrol and DuoNeb per EMS.? The patient himself cannot provide any history regarding why he came to the hospital.? He is alert oriented to himself and date of and knows that he is in [place].? He is not oriented as to the current month or circumstances like came to the hospital.? He denies any pain.? He does have chronic hearing loss which also does not help in the history process.? Patient is irritable and not all that cooperative with history process 04/14/2023:?pt seen this am, breathing tx in progress, he denies any chest pain, sob, n/v? or vomiting. He states he had no overnight events. 04/15/2023:?Pt seen this a.m, he is laying in bed resting with eyes open, he denies any c/o at this time. Pt has been NPO this a.m? waiting to have EGD this am. 04/16/2023: pt resting with eyes open, denies any c/o at this time. He is confused at this time. He is pod:1 s/p ERCP, he denies any abdominal pain and is requesting breakfast this a.m. Exam Narrative: General: lying in bed, in no acute distress HEENT: PERRL, EOMI. Oral mucosa dry Neck: Supple. No midl
--- NOTE | 2023-04-16 12:05 | WPDGIPROGNO ---
Progress Note: A&P Assessment and Plan (1) Obstructive jaundice: Code(s): K83.1 - Obstruction of bile duct Status: Acute Assessment and Plan: CT scan suggest obstruction in the distal common bile duct, either stone material or soft tissue. Previous CT scans had shown abscesses in the infrarenal area, the gallbladder fossa. 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 films done at the time of ERCP support stone material the distal common bile duct. After sphincterotomy balloon sweep this was no longer present. 04/16/2023 bilirubin has come down to 1.6 from 5.4 the other day (2) Respiratory syncytial virus (RSV): Code(s): B33.8 - Other specified viral diseases Status: Acute Assessment and Plan: this admission was actually because at the halfway he was noted to be lethargic and with pulmonary congestion. He denies being short of breath now but does have chronically breath sounds. 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 (5) Altered mental status: Qualifiers: Altered mental status type: unspecified Qualified Code(s): R41.82 - Altered mental status, unspecified Code(s): R41.82 - Altered mental status, unspecified Status: Acute (6) Gallbladder abscess: Code(s): K81.0 - Acute cholecystitis Status: Acute Assessment and Plan: With the last 2 years he has had multiple treatments with percutaneous drainage and antibiotic therapy for recurrent abscesses which are apparently finally gone. (7) Transaminitis: Code(s): R74.01 - Elevation of levels of liver transaminase levels Status: Acute Assessment and Plan: transaminases remain elevated well bilirubin has dropped quickly. Plan Recheck labs in the morning. Subjective Date/time seen: 04/16/23 12:05 he denies pain today. He has been tolerating his diet. Remains afebrile Exam Const: General: cooperative, alert, awake and average body habitus Nutritional Appearance: average body habitus Orientation/consciousness: patient oriented x3 HENMT: Head: normal to inspection Ears: hearing grossly normal bilaterally Mouth: Yes Normal oral and palatal mucosa present Neck: Neck: normal visual inspection Chest: Chest palpation & inspection: normal inspection of the chest Resp: Effort & Inspection: normal respiratory effort Auscultation: crackles Cardio: Rate: regular rate Rhythm: regular rhythm GI: Inspection: normal to inspection Auscultation: normal bowel sounds Skin: General skin exam: normal color and no jaundice Neuro: General: patient oriented x3 Speech: normal speech Objective Data Vital Signs Vital Signs: Vital Signs - 24 hr 04/15/23 13:06 04/15/23 13:39 04/15/23 13:35 Temperature 36.1 C L 36.2 C L Pulse Rate 56 L 94 107 H Respiratory Rate 16 20 20 Blood Pressure 162/94 H 160/101 H Pulse Oximetry 97 97 Oxygen Delivery Room Air Oxygen Flow Rate 04/15/23 13:45 04/15/23 14:51 04/15/23 15:01 Temperature 36.2 C L Pulse Rate 98 93 94 Respiratory Rate 20 16 22 H Blood Pressure 120/73 128/90 Pulse Oximetry 100 100 Oxygen Delivery Simple Face Mask Simple Face Mask Oxygen Flow Rate 10 10 04/15/23 15:11 04/15/23 15:21 04/15/23 15:31 Temperature Pulse Rate 97 99 90 Respiratory Rate 22 H 22 H 20 Blood Pressure 145/92 H 165/103 H 154/122 H Pulse Oximetry 100 100 99 Oxygen Delivery Simple Face Mask Simple Face Mask Simple Face Mask Oxygen Flow Rate 8 8 4 04/15/23 15:41 04/15/23 17:36 04/15/23 16:00
[2023-04-16] MEDS: LOSARTAN POTASSIUM 100 MG TABLET PO (21:27)
[2023-04-16] MEDS: ATORVASTATIN 10 MG TABLET PO (21:27)
[2023-04-17] VITALS (13 sets, daily range): BP systolic 143–156; BP diastolic 102–104; PULSE 75–99; RESP 16–18; TEMP 36.2–37; O2SAT 93–97
[2023-04-17] MEDS: MEROPENEM 1 GM/NS 100 ML 1 GM/100 ML BAG IVPB ×2 (05:45→13:16)
[2023-04-17 05:56] LABS: Basophils Percent Auto 0.3 % (0.2-1.2); Eosinophils Absolute Auto 0.1 K/mm3 (0-0.3); Eosinophils Percent Auto 0.8 % (0-4.4); Hematocrit 42.8 % (42.0-52.0); Hemoglobin 13.8 g/dL (14.0-18.0); Immature Granulocyte Absolute 0.03 K/mm3 (0.00-0.031); Immature Granulocyte Percent A 0.3 % (0-0.5); Lymphocytes Absolute Auto 2.01 K/mm3 (0.9-3.2); Lymphocytes Percent Auto 21.9 % (18.3-44.2); Mean Corpuscular HGB Conc 32.2 g/dl (32-36); Mean Corpuscular Hemoglobin 31.9 pg (26-34); Mean Corpuscular Volume 98.8 fl (80-100); Mean Platelet Volume 10.6 fl (7.4-10.4); Monocytes Absolute Auto 0.5 K/mm3 (0.1-0.6); Monocytes Percent Auto 5.4 % (2.6-8.5); Neutrophils Absolute Auto 6.5 K/mm3 (1.3-6.7); Neutrophils Percent Auto 71.3 % (45.5-73.1); Platelet Count Result 232 k/mm3 (150-375); Red Blood Count 4.33 M/mm3 (4.6-6.20); Red Cell Distribution Width 13.9 % (11.5-14.5); White Blood Count 9.2 K/mm3 (4.5-10.0)
[2023-04-17 06:10] LABS: Alanine Aminotransferase 133 U/L (6-50); Albumin Level 3.3 g/dL (3.5-5.1); Alkaline Phosphatase 832 U/L (38-126); Anion Gap 5 mmol/L (8-16); Aspartate Amino Transferase 131 U/L (17-59); Bilirubin,Total 1.9 mg/dL (0.2-1.3); Blood Urea Nitrogen 16 mg/dL (9-20); Calcium 8.4 mg/dL (8.4-10.2); Carbon Dioxide 32 mmol/L (22-30); Chloride 104 mmol/L (98-107); Estimated CRCL calculation 73 ml/min; Estimated Glomerular Filt Rate > 60; Glucose 102 mg/dL (65-110); Potassium 3.3 mmol/L (3.4-5.0); Sodium 141 mmol/L (137-145)
[2023-04-17] MEDS: IPRATROPIUM BR 0.02% INH SOLN 0.5 MG/2.5 ML VIAL INHALATION ×2 (07:50→21:03)
[2023-04-17] MEDS: FLUTICASONE/SALMETEROL 45-21 MCG INHALER 1 PUFF 2 PUFF INHALATION ×2 (07:50→21:03)
[2023-04-17] MEDS: ALBUTEROL SULFATE NEB 2.5 MG/3 ML INH INHALATION ×2 (07:50→21:03)
[2023-04-17] MEDS: TERAZOSIN HCL 5 MG CAPSULE 10 MG PO (08:58)
[2023-04-17] MEDS: ACIDOPHILUS/BULGARICUS CHEWABLE TABLET 1 TABLET PO ×2 (08:59→17:17)
[2023-04-17] MEDS: METOPROLOL TARTRATE 50 MG TAB 100 MG PO ×2 (08:59→21:22)
[2023-04-17] MEDS: FOLIC ACID 1 MG TABLET PO (08:59)
[2023-04-17] MEDS: PANTOPRAZOLE 40 MG TABLET PO (08:59)
[2023-04-17] MEDS: amLODIPine BESYLATE 5 MG TABLET PO (08:59)
[2023-04-17] MEDS: POTASSIUM CITRATE 5 MEQ TAB CR 10 MEQ PO (08:59)
[2023-04-17] MEDS: SENNOSIDES 8.6 MG TABLET PO ×2 (08:59→17:17)
[2023-04-17] MEDS: POTASSIUM CHLORIDE 20 MEQ PACKET (FOR LIQUID) 40 MEQ PO (09:02)
--- NOTE | 2023-04-17 09:31 | WPDGIPROGNO ---
Progress Note: A&P Assessment and Plan (1) Obstructive jaundice: Code(s): K83.1 - Obstruction of bile duct Status: Acute Assessment and Plan: CT scan suggest obstruction in the distal common bile duct, either stone material or soft tissue. Previous CT scans had shown abscesses in the infrarenal area, the gallbladder fossa. 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 films done at the time of ERCP support stone material the distal common bile duct. After sphincterotomy balloon sweep this was no longer present. 04/16/2023 bilirubin has come down to 1.6 from 5.4 the other day 04/17/2023 bilirubin is slightly higher. I am concerned about possible persistent obstruction of the bile duct. Will order MRCP. (2) Respiratory syncytial virus (RSV): Code(s): B33.8 - Other specified viral diseases Status: Acute Assessment and Plan: this admission [facility] he was noted to be lethargic and with pulmonary congestion. He denies being short of breath now but does have chronically breath sounds. 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 (5) Altered mental status: Qualifiers: Altered mental status type: unspecified Qualified Code(s): R41.82 - Altered mental status, unspecified Code(s): R41.82 - Altered mental status, unspecified Status: Acute (6) Gallbladder abscess: Code(s): K81.0 - Acute cholecystitis Status: Acute Assessment and Plan: With the last 2 years he has had multiple treatments with percutaneous drainage and antibiotic therapy for recurrent abscesses which are apparently finally gone. (7) Transaminitis: Code(s): R74.01 - Elevation of levels of liver transaminase levels Status: Acute Assessment and Plan: transaminases remain elevated well bilirubin has dropped quickly. Transaminases are not coming down in fact Alkaline phosphatase is higher. will order MRCP Plan Recheck labs in the morning. Subjective Date/time seen: 04/17/23 09:31 No complaints. Tolerating diet Exam Const: General: cooperative, alert, awake and average body habitus Nutritional Appearance: average body habitus Orientation/consciousness: patient oriented x3 HENMT: Head: normal to inspection Ears: hearing grossly normal bilaterally Mouth: Yes Normal oral and palatal mucosa present Neck: Neck: normal visual inspection Chest: Chest palpation & inspection: normal inspection of the chest Resp: Effort & Inspection: normal respiratory effort Auscultation: crackles Cardio: Rate: regular rate Rhythm: regular rhythm GI: Inspection: normal to inspection Auscultation: normal bowel sounds Skin: General skin exam: normal color and no jaundice Neuro: General: patient oriented x3 Speech: normal speech Objective Data Vital Signs Vital Signs: Vital Signs - 24 hr 04/16/23 12:00 04/16/23 13:30 04/16/23 14:18 Temperature 36.6 C Pulse Rate 117 H 91 97 Respiratory Rate 18 16 Blood Pressure 117/74 Pulse Oximetry 91 Oxygen Delivery 04/16/23 16:00 04/16/23 19:47 04/16/23 19:47 Temperature Pulse Rate 90 87 87 Respiratory Rate 16 16 Blood Pressure Pulse Oximetry 91 Oxygen Delivery Room Air 04/16/23 20:00 04/16/23 20:00 04/16/23 21:26 Temperature Pulse Rate 86 105 H Respiratory Rate 16 Blood Pressure Pulse Oximetry Oxygen Delivery Room Air 04/16/23 21:53 04/16/23 20:00 04/17/23 00:00 Temperature 36.1 C L Pulse Rate 105 H 80 81 Resp
--- NOTE | 2023-04-17 11:00 | PM.IMPN ---
Progress Note: A&P Assessment and Plan (1) Respiratory syncytial virus (RSV): Code(s): B33.8 - Other specified viral diseases Status: Acute (2) Atrial fibrillation with RVR: Code(s): I48.91 - Unspecified atrial fibrillation Status: Acute (3) UTI (urinary tract infection): Qualifiers: Hematuria presence: without hematuria Urinary tract infection type: site unspecified Qualified Code(s): N39.0 - Urinary tract infection, site not specified Code(s): N39.0 - Urinary tract infection, site not specified Status: Acute (4) COPD exacerbation: Code(s): J44.1 - Chronic obstructive pulmonary disease with (acute) exacerbation Status: Acute (5) Hypomagnesemia: Code(s): E83.42 - Hypomagnesemia Status: Acute (6) Essential hypertension: Code(s): I10 - Essential (primary) hypertension Status: Chronic (7) History of BPH: Code(s): Z87.438 - Personal history of other diseases of male genital organs Status: Chronic (8) GERD (gastroesophageal reflux disease): Qualifiers: Esophagitis presence: esophagitis presence not specified Qualified Code(s): K21.9 - Gastro-esophageal reflux disease without esophagitis Code(s): K21.9 - Gastro-esophageal reflux disease without esophagitis Status: Chronic (9) Histoplasmosis: Code(s): B39.9 - Histoplasmosis, unspecified Status: Acute Plan Sepsis-Improving -secondary to UTI -meropenem based on urine culture EcoLI -Repeat CBC, CMP. -Two sets of blood cultures NGTD -neuro status checks -Chest x-ray. RSV -Isolation precautions -supportive care -Supplemental oxygen as needed maintain SPO2 92% Obstruction of bile duct -GI following -ERCP 04/16/2023 -trend LFTS/alkphos worsening 04/17 -MRCP ordered for evaluation pending AFIB/RVR -SR now rate controlled -Resumed home BB -No AC due to previous hemorrhagic stroke -Telemetry monitoring UTI -Urine cultures ECOLI -blood cultures NGTD -Continue IV hydration. -Monitor CBC, CMP watch for sepsis. -Monitor vital signs. -meropenem IV and transitioned to Macrobid discharge. -probiotic -Monitor for obstructive uropathy and pyelonephritis COPD -Stable -bronchodilator p.r.n. -Supplemental oxygen PRN HX BPH -monitor for retention -resumed terazosin HX CVA -wheelchair bound Code status: Full code per patient DVT prophylaxis: SCD's (HX hemorrhagic stroke) Stress ulcer prophylaxis: Protonix 40 daily PT/OT notes: PT pending Disposition: Patient continues admission to the telemetry unit has MRCP scheduled for worsening LFTs and alk-phos. Continue with IV antibiotic therapy for UTI will discharge back to assisted living facility when medically stable. -Patient's previous records reviewed on admission -ER notes reviewed in detail on admission -discussed all findings and current treatment plan with patient/Family/POA -Consultations reviewed for recommendations -Patient's disposition for safe discharge discussed with rn field case manager Dictation performed by [employer] direct speech recognition software, therefore director of customer service variants and typographical errors may occur. Time Spent With Patient Time with patient: 25 - 35 minutes Subjective Date/time seen: 04/17/2312 Interval history: Narrative: 72-year-old male with past medical history of alcoholism, atrial fibrillation, heart failure, intercranial hemorrhage (06/2021) old CVAs, COPD requiring prior intubations and was difficult to wean from the vent in 2021 who presented to the ER from [address] via EMS due to shortness of breath and lethargy.? At the time my evaluation the patient was noted to have significant cough.? He received 125 mg of Solu-Medrol and DuoNeb per EMS.? The patient himself cannot provide any history regarding why he came to the hospital.? He is alert oriented to himself and date of
[2023-04-17] MEDS: LOSARTAN POTASSIUM 100 MG TABLET PO (21:22)
[2023-04-17] MEDS: ERTAPENEM 1 GM/NS 50 ML 1 GM/50 ML BAG IVPB (21:22)
[2023-04-17] MEDS: ATORVASTATIN 10 MG TABLET PO (21:22)
[2023-04-18] VITALS (23 sets, daily range): BP systolic 121–177; BP diastolic 79–106; PULSE 78–102; RESP 14–22; TEMP 36.3–36.5; O2SAT 96–100
--- NOTE | 2023-04-18 02:33 | PCRCNOTE ---
pt refused 0200 breathing tx on 04/18/23. Pt stated he wanted to sleep and did not want the mask on. Next administration is 0800 04/18/23
[2023-04-18 05:39] LABS: Basophils Absolute Auto 0.1 K/mm3 (0.0-0.1); Basophils Percent Auto 0.8 % (0.2-1.2); Eosinophils Absolute Auto 0.3 K/mm3 (0-0.3); Eosinophils Percent Auto 4.5 % (0-4.4); Hematocrit 39.2 % (42.0-52.0); Immature Granulocyte Absolute 0.03 K/mm3 (0.00-0.031); Immature Granulocyte Percent A 0.5 % (0-0.5); Lymphocytes Absolute Auto 1.41 K/mm3 (0.9-3.2); Lymphocytes Percent Auto 23.6 % (18.3-44.2); Mean Corpuscular HGB Conc 33.2 g/dl (32-36); Mean Corpuscular Hemoglobin 31.9 pg (26-34); Mean Corpuscular Volume 96.1 fl (80-100); Mean Platelet Volume 10.3 fl (7.4-10.4); Monocytes Absolute Auto 0.4 K/mm3 (0.1-0.6); Neutrophils Absolute Auto 3.9 K/mm3 (1.3-6.7); Neutrophils Percent Auto 64.6 % (45.5-73.1); Platelet Count Result 178 k/mm3 (150-375); Red Blood Count 4.08 M/mm3 (4.6-6.20); Red Cell Distribution Width 14.2 % (11.5-14.5)
[2023-04-18 05:47] LABS: Alanine Aminotransferase 148 U/L (6-50); Albumin Level 2.9 g/dL (3.5-5.1); Alkaline Phosphatase 1060 U/L (38-126); Anion Gap 6 mmol/L (8-16); Aspartate Amino Transferase 223 U/L (17-59); Bilirubin,Total 1.9 mg/dL (0.2-1.3); Blood Urea Nitrogen 11 mg/dL (9-20); Carbon Dioxide 27 mmol/L (22-30); Chloride 107 mmol/L (98-107); Estimated CRCL calculation 92 ml/min; Estimated Glomerular Filt Rate > 60; Glucose 107 mg/dL (65-110); Potassium 3.3 mmol/L (3.4-5.0); Sodium 140 mmol/L (137-145)
[2023-04-18] MEDS: IPRATROPIUM BR 0.02% INH SOLN 0.5 MG/2.5 ML VIAL INHALATION ×3 (07:19→21:08)
[2023-04-18] MEDS: ALBUTEROL SULFATE NEB 2.5 MG/3 ML INH INHALATION ×3 (07:19→21:08)
[2023-04-18] MEDS: FLUTICASONE/SALMETEROL 45-21 MCG INHALER 1 PUFF 2 PUFF INHALATION ×2 (07:19→21:09)
[2023-04-18] MEDS: POTASSIUM CHLORIDE INJ 40 MEQ in SODIUM CHLORIDE 0.9% IV 500 ML 130 MEQ IVPB (09:21)
--- NOTE | 2023-04-18 09:33 | PM.IMPN ---
Progress Note: A&P Assessment and Plan (1) Respiratory syncytial virus (RSV): Code(s): B33.8 - Other specified viral diseases Status: Acute (2) Atrial fibrillation with RVR: Code(s): I48.91 - Unspecified atrial fibrillation Status: Acute (3) UTI (urinary tract infection): Qualifiers: Hematuria presence: without hematuria Urinary tract infection type: site unspecified Qualified Code(s): N39.0 - Urinary tract infection, site not specified Code(s): N39.0 - Urinary tract infection, site not specified Status: Acute (4) COPD exacerbation: Code(s): J44.1 - Chronic obstructive pulmonary disease with (acute) exacerbation Status: Acute (5) Hypomagnesemia: Code(s): E83.42 - Hypomagnesemia Status: Acute (6) Essential hypertension: Code(s): I10 - Essential (primary) hypertension Status: Chronic (7) History of BPH: Code(s): Z87.438 - Personal history of other diseases of male genital organs Status: Chronic (8) GERD (gastroesophageal reflux disease): Qualifiers: Esophagitis presence: esophagitis presence not specified Qualified Code(s): K21.9 - Gastro-esophageal reflux disease without esophagitis Code(s): K21.9 - Gastro-esophageal reflux disease without esophagitis Status: Chronic (9) Histoplasmosis: Code(s): B39.9 - Histoplasmosis, unspecified Status: Acute Plan Sepsis-Improving -secondary to UTI -meropenem based on urine culture EcoLI -Repeat CBC, CMP. -Two sets of blood cultures NGTD -neuro status checks -Chest x-ray. RSV -Isolation precautions -supportive care -Supplemental oxygen as needed maintain SPO2 92% Obstruction of bile duct -GI following -ERCP 04/16/2023 -trend LFTS/alkphos worsening 04/18 -MRCP 04/17 showed 16mm bile duct stone -NPO -2nd ERCP 04/18 @12:00 AFIB/RVR-RESOLVED -SR now rate controlled -Resumed home BB -No AC due to previous hemorrhagic stroke -Telemetry monitoring UTI -Urine cultures ECOLI -blood cultures NGTD -Continue IV hydration. -Monitor CBC, CMP watch for sepsis. -Monitor vital signs. -meropenem de-escalated to ertapenem. -probiotic -Monitor for obstructive uropathy and pyelonephritis COPD -Stable -bronchodilator p.r.n. -Supplemental oxygen PRN HX BPH -monitor for retention -resumed terazosin HX CVA -wheelchair bound -PT/OT Code status: Full code per patient DVT prophylaxis: SCD's (HX hemorrhagic stroke) Stress ulcer prophylaxis: Protonix 40 daily PT/OT notes: PT pending Disposition: Patient continues admission to the telemetry unit has ERCP for 16mm bile duct stone. Continue with IV antibiotic therapy for UTI will discharge back to assisted living facility when medically stable. -Patient's previous records reviewed on admission -ER notes reviewed in detail on admission -discussed all findings and current treatment plan with patient/Family/POA -Consultations reviewed for recommendations -Patient's disposition for safe discharge discussed with pillowcase folder Dictation performed by [email or web address] direct speech recognition software, therefore salesforce specialist variants and typographical errors may occur. Time Spent With Patient Time with patient: 15 - 25 minutes Subjective Date/time seen: 04/18/23 09:33 Interval history: Narrative: 72-year-old male with past medical history of alcoholism, atrial fibrillation, heart failure, intercranial hemorrhage (06/2021) old CVAs, COPD requiring prior intubations and was difficult to wean from the vent in 2021 who presented to the ER from [address] via EMS due to shortness of breath and lethargy.? At the time my evaluation the patient was noted to have significant cough.? He received 125 mg of Solu-Medrol and DuoNeb per EMS.? The patient himself cannot provide any history regarding why he came to the hospital.? He is alert oriented to him
[2023-04-18] MEDS: LACTATED RINGERS 1,000 ML 150 ML IV CONT (11:58)
--- NOTE | 2023-04-18 12:33 | WPDANESEPPF ---
Anes - Initial Pre Proc Eval Procedure: Operation Date: 04/15/23 13:30 Proposed Procedures p Endoscopic Retro Cholangiopancreatogram - Rajesh Estrada MD Operation Date: 04/18/23 12:00 Proposed Procedures p Endoscopic Retro Cholangiopancreatogram - Rajesh Estrada MD Date/Time: 04/18/23 12:33 Surgeon: Adrianna Mcmillan DO Pre Op Diagnosis: afib, rvr, uti Patient Data Age: 72 Gender: M Height: 1.83 m Weight: 87.7 kg Last Vital Signs Temp 97.5 F L 04/18/23 11:54 Pulse 98 04/18/23 11:54 Resp 20 04/18/23 11:54 BP 177/100 H 04/18/23 11:54 Pulse Ox 97 04/18/23 11:54 O2 Del Method Room Air 04/18/23 11:54 O2 Flow Rate 4 04/15/23 15:31 Allergies Allergy/AdvReac Type Severity Reaction Status Date / Time Penicillins AdvReac Unknown Unknown Verified 04/18/23 11:48 Home Medications Medication Instructions Recorded Confirmed Type cholecalciferol (vitamin D3) 125 125 mcg PO Q48H 03/28/20 04/12/23 History mcg (5,000 unit) capsule metoprolol tartrate 50 mg tablet 100 mg PO Q12HR 01/25/21 04/12/23 History terazosin 10 mg capsule 10 mg PO QAM 06/09/21 04/12/23 History Lactobacillus acidoph-L.bulgaricus 1 tablet PO BID 04/12/23 04/12/23 History 1 million cell tablet acetaminophen 325 mg tablet 650 mg PO Q4H PRN Pain (Scale 04/12/23 04/12/23 History Score 1-3) albuterol sulfate 2.5 mg/3 mL 2.5 mg inhalation Q6H PRN Wheezing 04/12/23 04/12/23 History (0.083 %) solution for nebulization aspirin 81 mg tablet,delayed 81 mg PO DAILY 04/12/23 04/12/23 History release atorvastatin 10 mg tablet 10 mg PO HS 04/12/23 04/12/23 History fluticasone 100 mcg-salmeterol 50 1 ea inhalation QAM 04/12/23 04/12/23 History mcg/dose blistr powdr for inhalation (Wixela Inhub) folic acid 1 mg tablet 1 mg PO QAM 04/12/23 04/12/23 History losartan 100 mg tablet 100 mg PO HS 04/12/23 04/12/23 History nystatin 100,000 unit/gram topical 1 applic topical Q12H PRN reddness 04/12/23 04/12/23 History powder omeprazole 20 mg capsule,delayed 20 mg PO QAM 04/12/23 04/12/23 History release ramelteon 8 mg tablet 8 mg PO QHS 04/12/23 04/12/23 History sennosides 8.6 mg tablet (senna) 8.6 mg PO BID 04/12/23 04/12/23 History amlodipine 5 mg tablet 5 mg PO QAM 04/13/23 04/13/23 History Laboratory Tests 04/18/23 05:28 WBC 6.0 K/mm3 (4.5-10.0) RBC 4.08 L M/mm3 (4.6-6.20) Hgb 13.0 L g/dL (14.0-18.0) Hct 39.2 L % (42.0-52.0) MCV 96.1 fl (80-100) MCH 31.9 pg (26-34) MCHC 33.2 g/dl (32-36) RDW 14.2 % (11.5-14.5) Plt Count 178 k/mm3 (150-375) MPV 10.3 fl (7.4-10.4) Immature Gran % (Auto) 0.5 % (0-0.5) Neut % (Auto) 64.6 % (45.5-73.1) Lymph % (Auto) 23.6 % (18.3-44.2) Lake % (Auto) 6.0 % (2.6-8.5) Eos % (Auto) 4.5 H % (0-4.4) Baso % (Auto) 0.8 % (0.2-1.2) Lymph # (Auto) 1.41 K/mm3 (0.9-3.2) Lake # (Auto) 0.4 K/mm3 (0.1-0.6) Eos # (Auto) 0.3 K/mm3 (0-0.3) Baso # (Auto) 0.1 K/mm3 (0.0-0.1) Abs Immat Gran (auto) 0.03 K/mm3 (0.00-0.031) Absolute Neuts (auto) 3.9 K/mm3 (1.3-6.7) Absolute Nucleated RBC 0.0 K/mm3 (0.0-0.012) Nucleated RBC % 0.0 % (0.0-0.2) Sodium 140 mmol/L (137-145) Potassium 3.3 L mmol/L (3.4-5.0) Chloride 107 mmol/L (98-107) Carbon Dioxide 27 mmol/L (22-30) Anion Gap 6 L mmol/L (8-16) BUN 11 D mg/dL (9-20) Creatinine 0.70 mg/dL (0.7-1.3) Estim Creat Clear Calc 92 ml/min Estimated GFR > 60 (59 - ) Glucose 107 mg/dL (65-110) Calcium 8.0 L mg/dL (8.4-10.2) Total Bilirubin 1.9 H mg/dL (0.2-1.3) AST 223 H U/L (17-59) ALT 148 H U/L (6-50) Alkaline Phosphatase 1060 H U/L (38-126) Total Protein 6.0 L g/dL (6.3-8.2) Albumin 2.9 L g/dL (3.5-5.1) Patient hx anesthesia problems: none Family hx anesthesia problems: none Results Review: All pre-op
--- NOTE | 2023-04-18 13:34 | PCOTNOTE ---
Attempted to see pt for OT evaluation at 13:34 however pt is off the floor for an ERCP. Will continue to follow.
[2023-04-18] MEDS: ACIDOPHILUS/BULGARICUS CHEWABLE TABLET 1 TABLET PO (16:27)
[2023-04-18] MEDS: SENNOSIDES 8.6 MG TABLET PO (16:27)
[2023-04-18] MEDS: FOLIC ACID 1 MG TABLET PO (16:28)
[2023-04-18] MEDS: CHOLECALCIFEROL 1,000 UNITS TABLET 5000 UNITS PO (16:28)
[2023-04-18] MEDS: PANTOPRAZOLE 40 MG TABLET PO (16:28)
[2023-04-18] MEDS: TERAZOSIN HCL 5 MG CAPSULE 10 MG PO (16:28)
[2023-04-18] MEDS: amLODIPine BESYLATE 5 MG TABLET PO (16:29)
[2023-04-18] MEDS: ERTAPENEM 1 GM/NS 50 ML 1 GM/50 ML BAG IVPB (20:59)
[2023-04-18] MEDS: LOSARTAN POTASSIUM 100 MG TABLET PO (20:59)
[2023-04-18] MEDS: METOPROLOL TARTRATE 50 MG TAB 100 MG PO (20:59)
[2023-04-18] MEDS: ATORVASTATIN 10 MG TABLET PO (21:00)
[2023-04-19] VITALS (20 sets, daily range): BP systolic 122–150; BP diastolic 71–92; PULSE 75–124; RESP 16–20; TEMP 36.2–36.4; O2SAT 94–98
[2023-04-19] MEDS: IPRATROPIUM BR 0.02% INH SOLN 0.5 MG/2.5 ML VIAL INHALATION ×4 (02:15→20:03)
[2023-04-19] MEDS: ALBUTEROL SULFATE NEB 2.5 MG/3 ML INH INHALATION ×4 (02:15→20:03)
[2023-04-19 06:20] LABS: Basophils Percent Auto 0.3 % (0.2-1.2); Eosinophils Absolute Auto 0.3 K/mm3 (0-0.3); Eosinophils Percent Auto 2.4 % (0-4.4); Hematocrit 42.6 % (42.0-52.0); Hemoglobin 13.6 g/dL (14.0-18.0); Immature Granulocyte Absolute 0.04 K/mm3 (0.00-0.031); Immature Granulocyte Percent A 0.4 % (0-0.5); Lymphocytes Absolute Auto 1.34 K/mm3 (0.9-3.2); Lymphocytes Percent Auto 12.1 % (18.3-44.2); Mean Corpuscular HGB Conc 31.9 g/dl (32-36); Mean Corpuscular Hemoglobin 31.8 pg (26-34); Mean Corpuscular Volume 99.5 fl (80-100); Mean Platelet Volume 10.9 fl (7.4-10.4); Monocytes Absolute Auto 0.4 K/mm3 (0.1-0.6); Neutrophils Percent Auto 80.8 % (45.5-73.1); Platelet Count Result 177 k/mm3 (150-375); Red Blood Count 4.28 M/mm3 (4.6-6.20); Red Cell Distribution Width 14.5 % (11.5-14.5); White Blood Count 11.1 K/mm3 (4.5-10.0)
[2023-04-19 06:29] LABS: Alanine Aminotransferase 121 U/L (6-50); Albumin Level 3.1 g/dL (3.5-5.1); Alkaline Phosphatase 898 U/L (38-126); Anion Gap 5 mmol/L (8-16); Aspartate Amino Transferase 94 U/L (17-59); Bilirubin,Total 1.7 mg/dL (0.2-1.3); Blood Urea Nitrogen 9 mg/dL (9-20); Calcium 8.4 mg/dL (8.4-10.2); Carbon Dioxide 27 mmol/L (22-30); Chloride 106 mmol/L (98-107); Estimated CRCL calculation 92 ml/min; Estimated Glomerular Filt Rate > 60; Glucose 110 mg/dL (65-110); Potassium 3.4 mmol/L (3.4-5.0); Sodium 138 mmol/L (137-145)
--- NOTE | 2023-04-19 07:05 | WPDGIPROGNO ---
Progress Note: A&P Assessment and Plan (1) Obstructive jaundice: Code(s): K83.1 - Obstruction of bile duct Status: Acute Assessment and Plan: CT scan suggest obstruction in the distal common bile duct, either stone material or soft tissue. Previous CT scans had shown abscesses in the infrarenal area, the gallbladder fossa. 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 films done at the time of ERCP support stone material the distal common bile duct. After sphincterotomy balloon sweep this was no longer present. 04/16/2023 bilirubin has come down to 1.6 from 5.4 the other day 04/17/2023 bilirubin is slightly higher. I am concerned about possible persistent obstruction of the bile duct. Will order MRCP. A large, nearly 2 cm diameter stone was removed yesterday at ERCP. We can advance his diet. (2) Respiratory syncytial virus (RSV): Code(s): B33.8 - Other specified viral diseases Status: Acute Assessment and Plan: this admission was actually because at the [facility] he was noted to be lethargic and with pulmonary congestion. He denies being short of breath now but does have chronically breath sounds. 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 (5) Altered mental status: Qualifiers: Altered mental status type: unspecified Qualified Code(s): R41.82 - Altered mental status, unspecified Code(s): R41.82 - Altered mental status, unspecified Status: Acute (6) Gallbladder abscess: Code(s): K81.0 - Acute cholecystitis Status: Acute Assessment and Plan: Within the last 2 years he has had multiple treatments with percutaneous drainage and antibiotic therapy for recurrent abscesses which are apparently finally gone. (7) Transaminitis: Code(s): R74.01 - Elevation of levels of liver transaminase levels Status: Acute Assessment and Plan: transaminases remain elevated well bilirubin has dropped quickly. Transaminases are not coming down in fact Alkaline phosphatase is higher. will order MRCP Large CBD stone was seen on MRCP, removed yesterday with ERCP. It was not amenable to lithotripsy, therefore I removed it by extending the sphincterotomy at using a larger balloon. Plan Recheck labs in the morning. Subjective Date/time seen: 04/19/23 07:05 he denies any pain today. He tolerated his full liquid diet. I will advance him to regular. Transaminases are beginning to come down. Exam Const: General: cooperative, alert and awake Nutritional Appearance: average body habitus Orientation/consciousness: patient oriented x3 HENMT: Head: normal to inspection Ears: hearing grossly normal bilaterally Mouth: Yes Normal oral and palatal mucosa present Neck: Neck: normal visual inspection Chest: Chest palpation & inspection: normal inspection of the chest Resp: Effort & Inspection: normal respiratory effort Auscultation: crackles Cardio: Rate: regular rate Rhythm: regular rhythm GI: Inspection: normal to inspection Auscultation: normal bowel sounds Skin: General skin exam: normal color and no jaundice Neuro: General: patient oriented x3 Speech: normal speech Objective Data Vital Signs Vital Signs: Vital Signs - 24 hr 04/18/23 07:20 04/18/23 07:22 04/18/23 07:34 Temperature Pulse Rate 82 88 Respiratory Rate 16 16 Blood Pressure Pulse Oximetry 97 Oxygen Delivery Room Air Oxygen Flow Rate 04/18/23 09:22 04/18/23 11:54 04/18/23 08:35 Temperature 36.4 C L Pulse Ra
[2023-04-19] MEDS: METOPROLOL TARTRATE 50 MG TAB 100 MG PO ×2 (08:51→20:58)
[2023-04-19] MEDS: FOLIC ACID 1 MG TABLET PO (08:51)
[2023-04-19] MEDS: SENNOSIDES 8.6 MG TABLET PO ×2 (08:52→17:37)
[2023-04-19] MEDS: POTASSIUM CITRATE 5 MEQ TAB CR 10 MEQ PO (08:52)
[2023-04-19] MEDS: amLODIPine BESYLATE 5 MG TABLET PO (08:52)
[2023-04-19] MEDS: ACIDOPHILUS/BULGARICUS CHEWABLE TABLET 1 TABLET PO ×2 (08:52→17:37)
[2023-04-19] MEDS: TERAZOSIN HCL 5 MG CAPSULE 10 MG PO (08:52)
[2023-04-19] MEDS: PANTOPRAZOLE 40 MG TABLET PO (08:52)
[2023-04-19] MEDS: FLUTICASONE/SALMETEROL 45-21 MCG INHALER 1 PUFF 2 PUFF INHALATION ×2 (09:28→20:05)
--- NOTE | 2023-04-19 12:12 | PM.IMPN ---
Progress Note: A&P Assessment and Plan (1) Respiratory syncytial virus (RSV): Code(s): B33.8 - Other specified viral diseases Status: Acute (2) Atrial fibrillation with RVR: Code(s): I48.91 - Unspecified atrial fibrillation Status: Acute (3) UTI (urinary tract infection): Qualifiers: Hematuria presence: without hematuria Urinary tract infection type: site unspecified Qualified Code(s): N39.0 - Urinary tract infection, site not specified Code(s): N39.0 - Urinary tract infection, site not specified Status: Acute (4) COPD exacerbation: Code(s): J44.1 - Chronic obstructive pulmonary disease with (acute) exacerbation Status: Acute (5) Hypomagnesemia: Code(s): E83.42 - Hypomagnesemia Status: Acute (6) Essential hypertension: Code(s): I10 - Essential (primary) hypertension Status: Chronic (7) History of BPH: Code(s): Z87.438 - Personal history of other diseases of male genital organs Status: Chronic (8) GERD (gastroesophageal reflux disease): Qualifiers: Esophagitis presence: esophagitis presence not specified Qualified Code(s): K21.9 - Gastro-esophageal reflux disease without esophagitis Code(s): K21.9 - Gastro-esophageal reflux disease without esophagitis Status: Chronic (9) Histoplasmosis: Code(s): B39.9 - Histoplasmosis, unspecified Status: Acute Plan Obstruction of bile duct -GI following -ERCP 04/16/2023 -MRCP 04/17 showed 16mm bile duct stone -will advance diet as tolered per GI -2nd ERCP 04/18 stone removed -trend LFTS/alkphos improving after removal of stone 04/18 Sepsis-RESOLVED -secondary to UTI -meropenem based on urine culture EcoLI -Repeat CBC, CMP. -Two sets of blood cultures NGTD -neuro status checks -Chest x-ray. RSV -Isolation precautions -supportive care -Supplemental oxygen as needed maintain SPO2 92% AFIB/RVR-RESOLVED -SR now rate controlled -Resumed home BB -No AC due to previous hemorrhagic stroke -Telemetry monitoring UTI -Urine cultures ECOLI -blood cultures NGTD -Continue IV hydration. -Monitor CBC, CMP watch for sepsis. -Monitor vital signs. -meropenem de-escalated to ertapenem. -probiotic -Monitor for obstructive uropathy and pyelonephritis COPD -Stable -bronchodilator p.r.n. -Supplemental oxygen PRN HX BPH -monitor for retention -resumed terazosin HX CVA -wheelchair bound -PT/OT Code status: Full code per patient DVT prophylaxis: SCD's (HX hemorrhagic stroke) Stress ulcer prophylaxis: Protonix 40 daily PT/OT notes: PT pending Disposition: Patient tolerated ERCP stone removed will continue to trend LFT's,[facility] can likely return to assisted living tomorrow or the next day if tolerating oral intake. -Patient's previous records reviewed on admission -ER notes reviewed in detail on admission -discussed all findings and current treatment plan with patient/Family/POA -Consultations reviewed for recommendations -Patient's disposition for safe discharge discussed with case management director Dictation performed by [employer] direct speech recognition software, therefore plan consultant variants and typographical errors may occur. Subjective Date/time seen: 04/19/23 12:12 Interval history: Narrative: 72-year-old male with past medical history of alcoholism, atrial fibrillation, heart failure, intercranial hemorrhage (06/2021) old CVAs, COPD requiring prior intubations and was difficult to wean from the vent in 2021 who presented to the ER from [address] via EMS due to shortness of breath and lethargy.? At the time my evaluation the patient was noted to have significant cough.? He received 125 mg of Solu-Medrol and DuoNeb per EMS.? The patient himself cannot provide any history regarding why he came to the hospital.? He is alert oriented to himself and date of and knows th
[2023-04-19] MEDS: ATORVASTATIN 10 MG TABLET PO (20:58)
[2023-04-19] MEDS: ERTAPENEM 1 GM/NS 50 ML 1 GM/50 ML BAG IVPB (20:58)
[2023-04-19] MEDS: LOSARTAN POTASSIUM 100 MG TABLET PO (20:58)
[2023-04-20] VITALS (20 sets, daily range): BP systolic 133–174; BP diastolic 75–96; PULSE 72–104; RESP 12–18; TEMP 36.3–36.6; O2SAT 96–97
--- NOTE | 2023-04-20 03:45 | PCRCNOTE ---
Addendum entered by Latha Chatterjee, DEVELOPMENTAL MATHEMATICS INSTRUCTOR 04/20/23 03:45: Updraft treatment to resume at 0800. Original Note: Patient did not want to be awakened throughout the night.
[2023-04-20 05:39] LABS: Basophils Percent Auto 0.4 % (0.2-1.2); Eosinophils Absolute Auto 0.3 K/mm3 (0-0.3); Eosinophils Percent Auto 3.9 % (0-4.4); Hematocrit 39.8 % (42.0-52.0); Hemoglobin 12.9 g/dL (14.0-18.0); Immature Granulocyte Absolute 0.03 K/mm3 (0.00-0.031); Immature Granulocyte Percent A 0.4 % (0-0.5); Lymphocytes Absolute Auto 1.59 K/mm3 (0.9-3.2); Lymphocytes Percent Auto 22.2 % (18.3-44.2); Mean Corpuscular HGB Conc 32.4 g/dl (32-36); Mean Corpuscular Hemoglobin 31.9 pg (26-34); Mean Corpuscular Volume 98.5 fl (80-100); Mean Platelet Volume 11.2 fl (7.4-10.4); Monocytes Absolute Auto 0.4 K/mm3 (0.1-0.6); Monocytes Percent Auto 5.9 % (2.6-8.5); Neutrophils Absolute Auto 4.8 K/mm3 (1.3-6.7); Neutrophils Percent Auto 67.2 % (45.5-73.1); Platelet Count Result 167 k/mm3 (150-375); Red Blood Count 4.04 M/mm3 (4.6-6.20); Red Cell Distribution Width 14.2 % (11.5-14.5); White Blood Count 7.2 K/mm3 (4.5-10.0)
[2023-04-20 05:53] LABS: Alanine Aminotransferase 83 U/L (6-50); Albumin Level 2.8 g/dL (3.5-5.1); Alkaline Phosphatase 628 U/L (38-126); Anion Gap 5 mmol/L (8-16); Aspartate Amino Transferase 50 U/L (17-59); Bilirubin,Total 1.5 mg/dL (0.2-1.3); Blood Urea Nitrogen 11 mg/dL (9-20); Calcium 8.2 mg/dL (8.4-10.2); Carbon Dioxide 27 mmol/L (22-30); Chloride 105 mmol/L (98-107); Estimated CRCL calculation 92 ml/min; Estimated Glomerular Filt Rate > 60; Glucose 96 mg/dL (65-110); Potassium 3.4 mmol/L (3.4-5.0); Sodium 137 mmol/L (137-145)
[2023-04-20] MEDS: IPRATROPIUM BR 0.02% INH SOLN 0.5 MG/2.5 ML VIAL INHALATION ×3 (08:01→21:12)
[2023-04-20] MEDS: ALBUTEROL SULFATE NEB 2.5 MG/3 ML INH INHALATION ×3 (08:01→21:12)
[2023-04-20] MEDS: FLUTICASONE/SALMETEROL 45-21 MCG INHALER 1 PUFF 2 PUFF INHALATION ×2 (08:02→21:12)
[2023-04-20] MEDS: TERAZOSIN HCL 5 MG CAPSULE 10 MG PO (09:00)
[2023-04-20] MEDS: POTASSIUM CITRATE 5 MEQ TAB CR 10 MEQ PO (09:00)
[2023-04-20] MEDS: amLODIPine BESYLATE 5 MG TABLET PO (09:01)
[2023-04-20] MEDS: CHOLECALCIFEROL 1,000 UNITS TABLET 5000 UNITS PO (09:01)
[2023-04-20] MEDS: ACIDOPHILUS/BULGARICUS CHEWABLE TABLET 1 TABLET PO ×2 (09:01→16:55)
[2023-04-20] MEDS: SENNOSIDES 8.6 MG TABLET PO ×2 (09:01→16:56)
[2023-04-20] MEDS: FOLIC ACID 1 MG TABLET PO (09:01)
[2023-04-20] MEDS: PANTOPRAZOLE 40 MG TABLET PO (09:01)
[2023-04-20] MEDS: METOPROLOL TARTRATE 50 MG TAB 100 MG PO ×2 (09:01→21:02)
--- NOTE | 2023-04-20 09:46 | PM.IMPN ---
Progress Note: A&P Assessment and Plan (1) Respiratory syncytial virus (RSV): Code(s): B33.8 - Other specified viral diseases Status: Acute (2) Atrial fibrillation with RVR: Code(s): I48.91 - Unspecified atrial fibrillation Status: Acute (3) UTI (urinary tract infection): Qualifiers: Hematuria presence: without hematuria Urinary tract infection type: site unspecified Qualified Code(s): N39.0 - Urinary tract infection, site not specified Code(s): N39.0 - Urinary tract infection, site not specified Status: Acute (4) COPD exacerbation: Code(s): J44.1 - Chronic obstructive pulmonary disease with (acute) exacerbation Status: Acute (5) Hypomagnesemia: Code(s): E83.42 - Hypomagnesemia Status: Acute (6) Essential hypertension: Code(s): I10 - Essential (primary) hypertension Status: Chronic (7) History of BPH: Code(s): Z87.438 - Personal history of other diseases of male genital organs Status: Chronic (8) GERD (gastroesophageal reflux disease): Qualifiers: Esophagitis presence: esophagitis presence not specified Qualified Code(s): K21.9 - Gastro-esophageal reflux disease without esophagitis Code(s): K21.9 - Gastro-esophageal reflux disease without esophagitis Status: Chronic (9) Histoplasmosis: Code(s): B39.9 - Histoplasmosis, unspecified Status: Acute Plan Obstruction of bile duct -GI following -ERCP 04/16/2023 -MRCP 04/17 showed 16mm bile duct stone -advanced to Full regular diet 04/20/2023 -2nd ERCP 04/18 stone removed -trend LFTS/alkphos improving after removal of stone 04/18 Sepsis-RESOLVED -secondary to UTI -meropenem based on urine culture EcoLI -Repeat CBC, CMP. -Two sets of blood cultures NGTD -neuro status checks -Chest x-ray. RSV -Isolation precautions -supportive care -Supplemental oxygen as needed maintain SPO2 92% AFIB/RVR-RESOLVED -SR now rate controlled -Resumed home BB -No AC due to previous hemorrhagic stroke -Telemetry monitoring UTI -Urine cultures ECOLI -blood cultures NGTD -Continue IV hydration. -Monitor CBC, CMP watch for sepsis. -Monitor vital signs. -meropenem de-escalated to ertapenem. -probiotic -Monitor for obstructive uropathy and pyelonephritis COPD -Stable -bronchodilator p.r.n. -Supplemental oxygen PRN HX BPH -monitor for retention -resumed terazosin HX CVA -wheelchair bound -PT/OT Code status: Full code per patient DVT prophylaxis: SCD's (HX hemorrhagic stroke) Stress ulcer prophylaxis: Protonix 40 daily PT/OT notes: PT pending Disposition: Patient tolerated ERCP stone removed will continue to trend LFT's,[facility] can likely return to assisted living tomorrow or the next day if tolerating oral intake. -Patient's previous records reviewed on admission -ER notes reviewed in detail on admission -discussed all findings and current treatment plan with patient/Family/POA -Consultations reviewed for recommendations -Patient's disposition for safe discharge discussed with outsole caser Dictation performed by [employer] direct speech recognition software, therefore gemologist variants and typographical errors may occur. Subjective Date/time seen: 04/20/23 09:46 Interval history: Narrative: 72-year-old male with past medical history of alcoholism, atrial fibrillation, heart failure, intercranial hemorrhage (06/2021) old CVAs, COPD requiring prior intubations and was difficult to wean from the vent in 2021 who presented to the ER from [address] via EMS due to shortness of breath and lethargy.? At the time my evaluation the patient was noted to have significant cough.? He received 125 mg of Solu-Medrol and DuoNeb per EMS.? The patient himself cannot provide any history regarding why he came to the hospital.? He is alert oriented to himself and date of and know
--- NOTE | 2023-04-20 13:19 | WPDGIPROGNO ---
Progress Note: A&P Assessment and Plan (1) Choledocholithiasis: Code(s): K80.50 - Calculus of bile duct without cholangitis or cholecystitis without obstruction Status: Acute Assessment and Plan: treated with ercp, sphincterotomy and removal stone liver enzymes trending down and feeling better home soon (2) Obstructive jaundice: Code(s): K83.1 - Obstruction of bile duct Status: Acute Assessment and Plan: treated with ercp, stone removed bili coming down (3) Respiratory syncytial virus (RSV): Code(s): B33.8 - Other specified viral diseases Status: Acute Assessment and Plan: supportive care, stable (4) Atrial fibrillation with RVR: Code(s): I48.91 - Unspecified atrial fibrillation Status: Acute Assessment and Plan: by primary (5) Sepsis: Code(s): A41.9 - Sepsis, unspecified organism Status: Acute Assessment and Plan: resolved on iv abx (6) COPD exacerbation: Code(s): J44.1 - Chronic obstructive pulmonary disease with (acute) exacerbation Status: Acute Subjective Date/time seen: 04/20/23 13:19 Interval history: he is comfortable, denies abdominal pain and just finished lunch Review of Systems Review of Systems: All systems reviewed & are unremarkable except as noted in HPI and below Exam Const: General: cooperative, alert and awake Nutritional Appearance: average body habitus Orientation/consciousness: patient oriented x3 HENMT: Head: normal to inspection Eyes: Sclera: sclerae normal Neck: Neck: normal visual inspection Chest: Chest palpation & inspection: normal inspection of the chest Resp: Effort & Inspection: normal respiratory effort Auscultation: no wheezes Cardio: Rate: regular rate Rhythm: regular rhythm GI: Inspection: normal to inspection GI Palp: Yes Soft to palpation and No Tenderness to palpation present (GI) Auscultation: normal bowel sounds Skin: General skin exam: normal color and no jaundice Neuro: General: patient oriented x3 Speech: normal speech Extrem: General: normal to inspection Psych: Mental Status: mental status grossly normal Objective Data Vital Signs Vital Signs: Vital Signs - 24 hr 04/19/23 13:21 04/19/23 14:00 04/19/23 20:03 Temperature 97.1 F L Pulse Rate 96 113 H 110 H Respiratory Rate 18 16 18 Blood Pressure 122/76 Pulse Oximetry 94 Oxygen Delivery Fraction of Inspired Oxygen 04/19/23 20:06 04/19/23 20:13 04/19/23 20:21 Temperature 97.2 F L Pulse Rate 110 H 102 H 101 H Respiratory Rate 18 16 Blood Pressure 130/71 Pulse Oximetry 96 98 Oxygen Delivery Room Air Fraction of Inspired Oxygen 21 04/19/23 20:58 04/19/23 20:00 04/19/23 20:00 Temperature Pulse Rate 101 H 109 H 101 H Respiratory Rate 16 Blood Pressure Pulse Oximetry 98 Oxygen Delivery Room Air Fraction of Inspired Oxygen 21 04/20/23 00:00 04/20/23 04:00 04/20/23 05:17 Temperature 98 F Pulse Rate 94 79 91 Respiratory Rate 16 Blood Pressure 174/90 H Pulse Oximetry 97 Oxygen Delivery Fraction of Inspired Oxygen 04/20/23 08:02 04/20/23 08:04 04/20/23 08:14 Temperature Pulse Rate 97 100 Respiratory Rate 18 18 Blood Pressure Pulse Oximetry 96 Oxygen Delivery Room Air Fraction of Inspired Oxygen 04/20/23 08:57 04/20/23 09:01 04/20/23 08:00 Temperature 97.4 F L Pulse Rate 99 100 103 H Respiratory Rate 16 Blood Pressure 154/96 H Pulse Oximetry 96 Oxygen Delivery Fraction of Inspired Oxygen 04/20/23 09:00 04/20/23 12:00 Temperature Pulse Rate 75 Respiratory Rate Blood Pressure Pulse Oximetry Oxygen Delivery Room Air Fraction of Inspired Oxygen Intake/Output Intake/Output: Intake & Output 04/17/23 04/18/23 04/19/23 04/20/23 23:59 23:59 23:59 23:59 Intake Total 750 1782 2170 460 Output Total 200 175 Balance 550 1607 2170 460
[2023-04-20] MEDS: TOLNAFTATE 1% POWDER 45 GM BTL 1 APPLIC TOPICAL (17:01)
[2023-04-20] MEDS: ERTAPENEM 1 GM/NS 50 ML 1 GM/50 ML BAG IVPB (21:01)
[2023-04-20] MEDS: LOSARTAN POTASSIUM 100 MG TABLET PO (21:02)
[2023-04-20] MEDS: ATORVASTATIN 10 MG TABLET PO (21:02)
[2023-04-21] VITALS (13 sets, daily range): BP systolic 120–156; BP diastolic 84–96; PULSE 88–99; RESP 16; TEMP 36.1–36.6; O2SAT 93–96
[2023-04-21] MEDS: ALBUTEROL SULFATE NEB 2.5 MG/3 ML INH INHALATION ×2 (01:32→07:44)
[2023-04-21] MEDS: IPRATROPIUM BR 0.02% INH SOLN 0.5 MG/2.5 ML VIAL INHALATION ×2 (01:32→07:45)
[2023-04-21 04:45] LABS: Basophils Percent Auto 0.5 % (0.2-1.2); Eosinophils Absolute Auto 0.2 K/mm3 (0-0.3); Eosinophils Percent Auto 2.7 % (0-4.4); Hematocrit 42.8 % (42.0-52.0); Hemoglobin 13.6 g/dL (14.0-18.0); Immature Granulocyte Absolute 0.04 K/mm3 (0.00-0.031); Immature Granulocyte Percent A 0.5 % (0-0.5); Lymphocytes Absolute Auto 1.46 K/mm3 (0.9-3.2); Lymphocytes Percent Auto 17.8 % (18.3-44.2); Mean Corpuscular HGB Conc 31.8 g/dl (32-36); Mean Corpuscular Hemoglobin 31.3 pg (26-34); Mean Corpuscular Volume 98.6 fl (80-100); Mean Platelet Volume 10.6 fl (7.4-10.4); Monocytes Absolute Auto 0.5 K/mm3 (0.1-0.6); Monocytes Percent Auto 6.3 % (2.6-8.5); Neutrophils Absolute Auto 5.9 K/mm3 (1.3-6.7); Neutrophils Percent Auto 72.2 % (45.5-73.1); Platelet Count Result 178 k/mm3 (150-375); Red Blood Count 4.34 M/mm3 (4.6-6.20); Red Cell Distribution Width 14.1 % (11.5-14.5); White Blood Count 8.2 K/mm3 (4.5-10.0)
[2023-04-21 05:04] LABS: Alanine Aminotransferase 67 U/L (6-50); Albumin Level 3.3 g/dL (3.5-5.1); Alkaline Phosphatase 590 U/L (38-126); Anion Gap 4 mmol/L (8-16); Aspartate Amino Transferase 37 U/L (17-59); Bilirubin,Total 1.3 mg/dL (0.2-1.3); Blood Urea Nitrogen 15 mg/dL (9-20); Calcium 8.7 mg/dL (8.4-10.2); Carbon Dioxide 30 mmol/L (22-30); Chloride 104 mmol/L (98-107); Estimated CRCL calculation 73 ml/min; Estimated Glomerular Filt Rate > 60; Glucose 99 mg/dL (65-110); Potassium 3.8 mmol/L (3.4-5.0); Sodium 138 mmol/L (137-145)
[2023-04-21] MEDS: FLUTICASONE/SALMETEROL 45-21 MCG INHALER 1 PUFF 2 PUFF INHALATION (07:45)
[2023-04-21] MEDS: amLODIPine BESYLATE 5 MG TABLET PO (08:20)
[2023-04-21] MEDS: TERAZOSIN HCL 5 MG CAPSULE 10 MG PO (08:20)
[2023-04-21] MEDS: FOLIC ACID 1 MG TABLET PO (08:20)
[2023-04-21] MEDS: POTASSIUM CITRATE 5 MEQ TAB CR 10 MEQ PO (08:20)
[2023-04-21] MEDS: PANTOPRAZOLE 40 MG TABLET PO (08:20)
[2023-04-21] MEDS: ACIDOPHILUS/BULGARICUS CHEWABLE TABLET 1 TABLET PO (08:20)
[2023-04-21] MEDS: METOPROLOL TARTRATE 50 MG TAB 100 MG PO (08:21)
[2023-04-21] MEDS: SENNOSIDES 8.6 MG TABLET PO (08:21)
[2023-04-21] MEDS: TOLNAFTATE 1% POWDER 45 GM BTL 1 APPLIC TOPICAL (08:32)
--- NOTE | 2023-04-21 11:02 | PM.DS ---
DS: Admitting Diagnosis Discharge Date 04/21/2023 Admitting Diagnosis COPD exacerbation/AMS DS: Discharge Diagnosis Discharge Diagnosis (1) Choledocholithiasis: Code(s): K80.50 - Calculus of bile duct without cholangitis or cholecystitis without obstruction Status: Acute Assessment and Plan: -ERCP education provided -continue to advance diet as tolerated -Follow-up GI in 2 weeks (2) Transaminitis: Code(s): R74.01 - Elevation of levels of liver transaminase levels Status: Acute Assessment and Plan: -Resolving -Follow-up Liver enzymes 1 week -Follow-up with GI in 2 weeks (3) Obstructive jaundice: Code(s): K83.1 - Obstruction of bile duct Status: Acute (4) Respiratory syncytial virus (RSV): Code(s): B33.8 - Other specified viral diseases Status: Acute Assessment and Plan: Supportive care -Asymptomatic (5) UTI (urinary tract infection): Qualifiers: Hematuria presence: without hematuria Urinary tract infection type: site unspecified Qualified Code(s): N39.0 - Urinary tract infection, site not specified Code(s): N39.0 - Urinary tract infection, site not specified Status: Acute Assessment and Plan: -Macrobid x 7 more days to complete therapy (6) History of BPH: Code(s): Z87.438 - Personal history of other diseases of male genital organs Status: Chronic Assessment and Plan: -monitor for urinary retention (7) Essential hypertension: Code(s): I10 - Essential (primary) hypertension Status: Chronic Assessment and Plan: -Resumed previous HTN medications -Monitor BP (8) Atrial fibrillation with RVR: Code(s): I48.91 - Unspecified atrial fibrillation Status: Acute (9) COPD exacerbation: Code(s): J44.1 - Chronic obstructive pulmonary disease with (acute) exacerbation Status: Acute (10) Hypomagnesemia: Code(s): E83.42 - Hypomagnesemia Status: Acute (11) GERD (gastroesophageal reflux disease): Qualifiers: Esophagitis presence: esophagitis presence not specified Qualified Code(s): K21.9 - Gastro-esophageal reflux disease without esophagitis Code(s): K21.9 - Gastro-esophageal reflux disease without esophagitis Status: Chronic (12) Histoplasmosis: Code(s): B39.9 - Histoplasmosis, unspecified Status: Acute Plan Obstruction of bile duct -Follow-up 2 weeks with GI -Advance diet as tolerated -Follow-up liver panel 1 week RSV -Isolation precautions -supportive care AFIB/RVR-RESOLVED -Resumed home BB -No AC due to previous hemorrhagic stroke UTI -Macrobid x 7 days to complete therapy COPD -Stable -bronchodilator p.r.n. -Supplemental oxygen PRN HX BPH -monitor for retention -resumed terazosin HX CVA -wheelchair bound -PT/OT DS: Summary Hospital Course Reason for hospitalization: SOB/AMS Hospital Course: 72-year-old male with past medical history of alcoholism, atrial fibrillation, heart failure, intercranial hemorrhage (06/2021) old CVAs, COPD requiring prior intubations and was difficult to wean from the vent in 2021 who presented to the ER from [address] via EMS due to shortness of breath and lethargy.? At the time my evaluation the patient was noted to have significant cough.? He received 125 mg of Solu-Medrol and DuoNeb per EMS.? The patient himself cannot provide any history regarding why he came to the hospital.? He is alert oriented to himself and date of and knows that he is in [place].? He is not oriented as to the current month or circumstances like came to the hospital.? He denies any pain.? He does have chronic hearing loss which also does not help in the history process.? Patient is irritable and not all that cooperative with history process 04/14/2023:?pt seen this am, breathing tx in progress, he denies any chest pain, sob, n/v? or vomiting. He state
--- NOTE | 2023-04-21 14:24 | WPDGIPROGNO ---
Progress Note: A&P Assessment and Plan (1) Choledocholithiasis: Code(s): K80.50 - Calculus of bile duct without cholangitis or cholecystitis without obstruction Status: Acute Assessment and Plan: treated with ercp, sphincterotomy and removal stone today normalization of bili overall better ok to go home and follow-up office in few more weeks (2) Obstructive jaundice: Code(s): K83.1 - Obstruction of bile duct Status: Acute Assessment and Plan: resolved after treated with ercp, stone removed (3) Respiratory syncytial virus (RSV): Code(s): B33.8 - Other specified viral diseases Status: Acute Assessment and Plan: supportive care, stable (4) Atrial fibrillation with RVR: Code(s): I48.91 - Unspecified atrial fibrillation Status: Acute Assessment and Plan: by primary (5) Sepsis: Code(s): A41.9 - Sepsis, unspecified organism Status: Acute Assessment and Plan: resolved on iv abx (6) COPD exacerbation: Code(s): J44.1 - Chronic obstructive pulmonary disease with (acute) exacerbation Status: Acute Subjective Date/time seen: 04/21/23 14:24 Interval history: he is comfortable, resting in bed no abdominal pain Review of Systems Review of Systems: All systems reviewed & are unremarkable except as noted in HPI and below Exam Const: General: cooperative, alert and awake Nutritional Appearance: average body habitus Orientation/consciousness: patient oriented x3 HENMT: Head: normal to inspection Eyes: Sclera: sclerae normal Neck: Neck: normal visual inspection Chest: Chest palpation & inspection: normal inspection of the chest Resp: Effort & Inspection: normal respiratory effort Auscultation: no wheezes Cardio: Rate: regular rate Rhythm: regular rhythm GI: Inspection: normal to inspection GI Palp: Yes Soft to palpation and No Tenderness to palpation present (GI) Auscultation: normal bowel sounds Skin: General skin exam: normal color and no jaundice Neuro: General: patient oriented x3 Speech: normal speech Extrem: General: normal to inspection Psych: Mental Status: mental status grossly normal Objective Data Vital Signs Vital Signs: Vital Signs - 24 hr 04/20/23 16:00 04/20/23 19:40 04/20/23 21:02 Temperature 97.9 F Pulse Rate 104 H 93 93 Respiratory Rate 16 Blood Pressure 133/75 Pulse Oximetry 96 Oxygen Delivery Fraction of Inspired Oxygen 04/20/23 20:00 04/20/23 20:00 04/21/23 00:00 Temperature Pulse Rate 95 93 89 Respiratory Rate 16 Blood Pressure Pulse Oximetry 96 Oxygen Delivery Room Air Fraction of Inspired Oxygen 21 04/20/23 21:12 04/20/23 21:15 04/20/23 21:30 Temperature Pulse Rate 93 95 Respiratory Rate 18 18 Blood Pressure Pulse Oximetry 96 Oxygen Delivery Room Air Fraction of Inspired Oxygen 04/21/23 03:16 04/21/23 04:00 04/21/23 01:35 Temperature 98 F Pulse Rate 96 89 88 Respiratory Rate 16 16 Blood Pressure 156/96 H Pulse Oximetry 96 Oxygen Delivery Fraction of Inspired Oxygen 04/21/23 01:47 04/21/23 07:45 04/21/23 07:47 Temperature Pulse Rate 91 91 Respiratory Rate 16 16 Blood Pressure Pulse Oximetry 93 Oxygen Delivery Room Air Fraction of Inspired Oxygen 04/21/23 07:56 04/21/23 08:18 04/21/23 08:21 Temperature 97.3 F L Pulse Rate 92 95 98 Respiratory Rate 16 16 Blood Pressure 149/94 H Pulse Oximetry 95 Oxygen Delivery Fraction of Inspired Oxygen 04/21/23 08:00 04/21/23 08:30 04/21/23 12:00 Temperature Pulse Rate 99 91 Respiratory Rate Blood Pressure Pulse Oximetry Oxygen Delivery Room Air Fraction of Inspired Oxygen 04/21/23 13:36 Temperature 97.0 F L Pulse Rate 89 Respiratory Rate 16 Blood Pressure 120/84 Pulse Oximetry 95 Oxygen Delivery Fraction of Inspired Oxygen Intake/Output Intake/Output:
== END 2023-04-21 15:50 | DRG 872 ==
LOC: ANHED 16:04 → ANHIMU 22:20 → ANH2MED 04-13 18:41
PROVIDERS: Internal Medicine Gastroenterology; Nurse Practitioner; Admitting Provider Internal Medicine; Emergency Provider Emergency Medicine; PCP Family Medicine; Visit Provider Nurse Practitioner Family
PROC: 0F798ZZ Dilation of Common Bile Duct, Via Natural or Artificial Opening Endoscopic (ICD-10-PCS; CPT 43260; principal; 2023-04-15 13:30)
PROC: 0FC98ZZ Extirpation of Matter from Common Bile Duct, Via Natural or Artificial Opening Endoscopic (ICD-10-PCS; CPT 43260; principal; 2023-04-18 12:00)
DX: A41.9 Sepsis, unspecified organism (principal); J44.1 Chronic obstructive pulmonary disease with (acute) exacerbation; N39.0 Urinary tract infection, site not specified; K80.50 Calculus of bile duct without cholangitis or cholecystitis without obstruction; B97.4 Respiratory syncytial virus as the cause of diseases classified elsewhere; F10.21 Alcohol dependence, in remission; I48.0 Paroxysmal atrial fibrillation; I35.8 Other nonrheumatic aortic valve disorders; H91.93 Unspecified hearing loss, bilateral; E83.42 Hypomagnesemia; K21.9 Gastro-esophageal reflux disease without esophagitis; B39.9 Histoplasmosis, unspecified; B96.20 Unspecified Escherichia coli [E. coli] as the cause of diseases classified elsewhere; I11.0 Hypertensive heart disease with heart failure; I50.9 Heart failure, unspecified; D13.2 Benign neoplasm of duodenum; Z86.73 Personal history of transient ischemic attack (TIA), and cerebral infarction without residual deficits; Z79.82 Long term (current) use of aspirin; Z87.891 Personal history of nicotine dependence; Z99.3 Dependence on wheelchair; Z20.822 Contact with and (suspected) exposure to COVID-19
CPT/HCPCS: 36415; 71045; 71260; 74177; 74183; 74329; 76376; 80053; 80076; 81001; 83605; 83690; 83735; 84484; 85025; 85610; 85730; 87040; 87077; 87086; 87186; 87637; 88305; 93005; 94640; 96361; 96365; 96366; 96367; 96375; 97162; 97165; 99285; A9270; A9577; G0378; J0330; J0696; J1100; J1335; J1836; J1885; J2185; J2405; J2704; J3475; J3480; J7030; J7040; J7120; Q9966; Q9967

== ENCOUNTER 2023-07-28 14:26 | Inpatient (IN) | payer MEDICARE, SELFPAY ==
[2023-07-28] VITALS (20 sets, daily range): BP systolic 101–159; BP diastolic 65–93; PULSE 59–84; RESP 12–19; TEMP 36.6–36.7; O2SAT 14–100; BMI 25.9
--- NOTE | ~2023-07-28 | XR_ITS ---
Portable chest x-ray Comparison: 07/28/2023 Clinical History: Wheezing Findings: There is mild haziness the right lung base. Probable mild central congestive change. Card iomediastinal silhouette is stable. Bones and soft tissues are unremarkable. Impression: For basilar pulmonary edema/atelectasis versus pneumonia. Correlate clinically. Probable mild central congestive change. Reviewed, dictated and finalized at [facility]. Impression: For basilar pulmonary edema/atelectasis versus pneumonia. Correlate clinically. Probable mild central congestive change.
--- NOTE | ~2023-07-28 | CT_ITS ---
EXAMINATION: CT brain wo con DATE: 07/28/2023 16:51 INDICATION: Unresponsive. TECHNIQUE: Computed tomography (CT) of the head was performed without intravenous contrast. The mA wa s adjusted according to patient size. Iterative reconstruction technique was employed. The dose-lengt h product was 605.33 mGy-cm. COMPARISON: None FINDINGS: There is no intracranial hemorrhage, acute infarction, or abnormal intracranial mass lesion . There are old infarcts involving the bilateral basal ganglia. There are scattered areas of low atte nuation in the cerebral white matter. The ventricles are normal in size. There are likely changes of ocular lens replacement surgeries. There is mild mucosal thickening in the paranasal sinuses. The mas toid air cells are normal. IMPRESSION: 1. Old infarcts involving the bilateral basal ganglia. 2. Mild nonspecific cerebral white matter disease, which likely represents chronic small vessel ische stella disease. Reviewed, dictated and finalized at location E. IMPRESSION: 1. Old infarcts involving the bilateral basal ganglia. 2. 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
--- NOTE | ~2023-07-28 | XR_ITS ---
EXAMINATION: XR chest 2V DATE: 07/28/2023 16:55 INDICATION: Weakness. TECHNIQUE: Frontal and lateral views of the chest were obtained. COMPARISON: Chest single view 04/15/2023, chest CT 04/12/2023 FINDINGS: There is a diffuse interstitial pattern in the lungs. No pleural effusion or pneumothorax. Cardiomegaly is noted. IMPRESSION: 1. Diffuse interstitial pattern in the lungs, consistent with mild pulmonary edema versus chronic int erstitial lung disease. 2. Cardiomegaly. Reviewed, dictated and finalized at location E. IMPRESSION: 1. Diffuse interstitial pattern in the lungs, consistent with mild pulmonary ed kenny versus chronic interstitial lung disease. 2. Cardiomegaly.
--- NOTE | ~2023-07-28 | US_ITS ---
EXAMINATION: US FNA w image guidance DATE: 08/01/2023 12:38 INDICATION: Right thyroid mass TECHNIQUE: A time-out was performed to verify the patient's name, date of , and procedure to be performed . The procedure and its benefits and risks were discussed with the patient. Risks specifically discus sed included bleeding and infection. The patient understood the risks and agreed to proceed. The neck was prepped and draped in the usual sterile manner. 2 mL 1% lidocaine was used for local anesthesia . 6 passes were made with a 25G needle into the lesion. Appropriate needle location was documented with continuous sonographic guidance. A sterile bandage was applied. There were no immediate compli cations. FINDINGS: Grayscale ultrasound images demonstrate biopsy needles advanced into the previously noted 5.6 cm TI R ADS 5 mass in the mid to lower right thyroid. IMPRESSION: 1. Successful ultrasound-guided fine needle aspiration of the previously noted 5.6 cm TI RADS 5 mass in the mid to lower right thyroid. . Reviewed, dictated and finalized at location A.
--- NOTE | ~2023-07-28 | US_ITS ---
EXAMINATION: US thyroid DATE: 07/31/2023 10:44 INDICATION: Thyroid mass seen on CT TECHNIQUE: Multiple ultrasound images of the thyroid were obtained. COMPARISON: CT dated 07/30/2023 FINDINGS: The right thyroid lobe measures 7.9 x 3.6 x 4.3 cm. The left thyroid lobe measures 3.5 x 1.7 x 2.5 c m. There is a 5.6 cm solid wider than tall hypoechoic nodule with smooth margins and without interna l echogenic foci in the mid to lower right thyroid (TI-RADS 5, highly suspicious , FNA if >=1.0 cm, annual followup is >0.5 cm). 8 mm anechoic TI-RADS 1 cystic nodule in the left thyroid. There is norm al echotexture, echogenicity and vascular flow throughout the surrounding thyroid gland. IMPRESSION: 1. 5.6 cm TI RADS 5 right thyroid nodule for which ultrasound-guided biopsy would be strongly recomme nded. Reviewed, dictated and finalized at location A. IMPRESSION: 1. 5.6 cm TI RADS 5 right thyroid nodule for which ultrasound-guided biopsy wou ld be strongly recommended.
--- NOTE | ~2023-07-28 | CT_ITS ---
EXAMINATION: CTA chest PE protocol DATE: 07/28/2023 19:18 INDICATION: Weakness. Elevated d-dimer. TECHNIQUE: Computed tomography angiography (CTA) of the chest was performed with 200 mL Omnipaque-350 intravenous contrast timed to evaluate the pulmonary arteries. Coronal maximum intensity projection 3D-reconstructions were created by the technologist. Automated exposure control and iterative reconst ruction technique were employed. The dose-length product was 1001.66 mGy-cm. COMPARISON: Chest CT 04/12/2023 FINDINGS: There is mild emphysema. A calcified left lung nodule and calcified left hilar lymph nodes are consistent with old granulomatous disease. There is mild atelectasis bilaterally. There is chroni c septal thickening in the peripheral lungs. No pleural effusion. There is a chronic 5.0 cm nodule in right thyroid lobe. Cardiomegaly is noted. There is an occlusion device at left atrial appendage. Th ere is a small pericardial effusion. There are coronary artery calcifications. There is no pulmonary embolus. Pneumobilia is noted. There are peripelvic cysts in right kidney measuring up to 3.9 cm. The re is chronic height loss of of T9, T10, T11, and L1 vertebral bodies. IMPRESSION: 1. No pulmonary embolus. 2. Mild chronic interstitial lung disease. 3. Mild emphysema. 4. Small pericardial effusion. 5. Thyroid nodule. Consider thyroid ultrasound for risk stratification. Reviewed, dictated and finalized at location E.
--- NOTE | ~2023-07-28 | CT_ITS ---
EXAMINATION: CT brain wo/w con DATE: 08/01/2023 11:07 INDICATION: Altered mental status TECHNIQUE: Computed tomography (CT) of the head was performed without and with 100 cc Omnipaque 350 [address] chronic right lacunar infarction in the caudate nucleus. intravenous contrast. The dose-length p roduct was 681.00 mGy-cm. Automated exposure control and iterative reconstruction technique were empl oyed. COMPARISON: CT dated 07/30/2023 FINDINGS: Generalized atrophy. There are scattered mild periventricular and subcortical white matter changes, most likely related to small vessel ischemic disease (microangiopathy). Study limited by mot ion artifact. There is intracranial atherosclerosis. No acute infarction, hemorrhage, mass or mass ef fect. No abnormal contrast enhancement. IMPRESSION: 1. No acute intracranial abnormality. No significant interval change from prior study. Reviewed, dictated and finalized at location B.
--- NOTE | ~2023-07-28 | CT_ITS ---
EXAMINATION: CT brain wo con DATE: 07/30/2023 10:05 INDICATION: Fall with head injury TECHNIQUE: Computed tomography (CT) of the head was performed without intravenous contrast. Sagittal and coronal reconstructions were performed. The mA was adjusted according to patient size. Iterative reconstruction technique was employed. The dose-length product was 605.33 mGy-cm. COMPARISON: 07/28/2023 FINDINGS: No fracture. No acute intracranial hemorrhage, acute infarction or abnormal extra axial fluid collect ion. Small old lacunar infarct at the head of the right caudate nucleus. There is mild scattered whit e matter hypoattenuation consistent with chronic small vessel ischemic disease. Symmetric prominence of the sulci and ventricles consistent with moderate age-appropriate diffuse cerebral volume loss. No mass/mass effect. Changes of bilateral intraocular lens replacement. The orbits, paranasal sinuses a nd mastoid air cells are normal. Intracranial calcified cerebral atherosclerosis is noted. IMPRESSION: 1. No fracture or acute intracranial process. 2. Small old lacunar infarct at the root of the right caudate nucleus. 3. Age-related changes including moderate diffuse volume loss and mild scattered white matter hypoatt enuation consistent with chronic small vessel ischemic disease. Reviewed, dictated and finalized at location A. IMPRESSION: 1. No fracture or acute intracranial process. 2. Small old lacunar infarct at the root of the right caudate nucleus. 3. Age-related changes including moderate diffuse volume loss and mild scattere d white matter hypoattenuation consistent with chronic small vessel ischemic di sease.
--- NOTE | ~2023-07-28 | CT_ITS ---
EXAMINATION: CT cervical spine wo con DATE: 07/30/2023 10:05 INDICATION: Fall with head injury TECHNIQUE: Computed tomography (CT) of the cervical spine was performed without intravenous contrast. Automated exposure control and iterative reconstruction technique were employed. The dose-length pro duct was 454.92 mGy-cm. COMPARISON: None FINDINGS: Reversal of the normal cervical lordosis which could be positional or due to muscle spasm. No spondyl olisthesis or facet subluxation. Vertebral body heights are normal. No acute fracture. Severe disc he ight loss with degenerative endplate changes and severe associated uncovertebral osteoarthritis at C5 -C6 and C6-C7. There are mild disc bulges resulting in minimal central canal stenosis at both of thes e levels. Mild disc height loss at C2-C3 and C4-C5. Additional mild osteoarthritis at the remaining c ervical uncovertebral joints and at multiple bilateral cervical and upper thoracic facet joints. Mild to moderate neural foraminal stenosis on the right at C5-6, and the left at C6-C7 and mild neural fo raminal stenosis at the contralateral neural foramina at both of these levels. Catheter scar calcific lesion at the bilateral carotid bulbs. Multinodular goiter with 5.6 cm mass in the right thyroid lob e. Mild emphysema the apices of the lungs. IMPRESSION: 1. Severe lower cervical spondylosis. No acute osseous abnormality. 2. Multinodular goiter with 5.6 cm right thyroid mass which has a high likelihood of meeting criteria for biopsy. Recommend thyroid ultrasound for risk stratification. 3. Mild emphysema. Reviewed, dictated and finalized at location A. IMPRESSION: 1. Severe lower cervical spondylosis. No acute osseous abnormality. 2. Multinodular goiter with 5.6 cm right thyroid mass which has a high likeliho od of meeting criteria for biopsy. Recommend thyroid ultrasound for risk strati fication. 3. Mild emphysema.
--- NOTE | ~2023-07-28 | CT_ITS ---
Clinical Indication: Shortness of breath, tachycardia CT Scan of the Chest with Contrast: Technique: Contiguous sections were acquired throughout the chest after intravenous administration of 100 cc of Omnipaque 350. Dose reduction technique was used on this scan by utilizing automated expos ure control and iterative reconstruction technique. The dose-length product (DLP) was 845.20 mGy-cm. COMPARISON: 07/28/2023 Findings: Stable large hypodense right thyroid lobe nodule. There is no evidence of any significant mediastinal, hilar or axillary lymphadenopathy. There is no f illing defect in the pulmonary arterial tree to suggest pulmonary embolus. There is no evidence of ao rtic dissection or aneurysm. Minimal pericardial effusion present. Left atrial appendage occlusion de vice present. There is no evidence of pleural or pericardial effusion. There is patchy right basilar airspace consolidation, with could reflect pneumonia or possibly atelec tasis. Possible mild subpleural reticulation the lungs. Images through the upper abdomen reveal pneumobilia and stable probable right renal cysts, rather wero n hydronephrosis. Stable mild compression fractures of T9, T11, and L1. Impression: No evidence of pulmonary embolus, aortic dissection, or aortic aneurysm. Right lower lobe airspace consolidation. Correlate for pneumonia versus atelectasis. Probable mild subpleural reticulation the lungs. Minimal pericardial effusion. Stable compression fractures in the spine, as above. Reviewed, dictated and finalized at [facility]. Impression: No evidence of pulmonary embolus, aortic dissection, or aortic aneurysm. Right lower lobe airspace consolidation. Correlate for pneumonia versus atelect asis. Probable mild subpleural reticulation the lungs. Minimal pericardial effusion. Stable compression fractures in the spine, as above.
--- NOTE | 2023-07-28 14:52 | ECG_ITS ---
SEE SCANNED COPY FOR CONFIRMED REPORT MTDD
[2023-07-28 15:17] LABS: Basophils Percent Auto 0.4 % (0.2-1.2); Eosinophils Absolute Auto 0.1 K/mm3 (0-0.3); Eosinophils Percent Auto 1.1 % (0-4.4); Hemoglobin 11.8 g/dL (14.0-18.0); Immature Granulocyte Absolute 0.01 K/mm3 (0.00-0.031); Immature Granulocyte Percent A 0.2 % (0-0.5); Lymphocytes Absolute Auto 1.16 K/mm3 (0.9-3.2); Lymphocytes Percent Auto 21.6 % (18.3-44.2); Mean Corpuscular HGB Conc 33.7 g/dl (32-36); Mean Corpuscular Hemoglobin 32.2 pg (26-34); Mean Corpuscular Volume 95.4 fl (80-100); Mean Platelet Volume 10.1 fl (7.4-10.4); Monocytes Absolute Auto 0.4 K/mm3 (0.1-0.6); Monocytes Percent Auto 6.7 % (2.6-8.5); Neutrophils Absolute Auto 3.8 K/mm3 (1.3-6.7); Platelet Count Result 114 k/mm3 (150-375); Red Blood Count 3.67 M/mm3 (4.6-6.20); Red Cell Distribution Width 12.3 % (11.5-14.5); White Blood Count 5.4 K/mm3 (4.5-10.0)
[2023-07-28 15:29] LABS: Alanine Aminotransferase 10 U/L (6-50); Albumin Level 2.9 g/dL (3.5-5.1); Alkaline Phosphatase 55 U/L (38-126); Anion Gap 2 mmol/L (4-12); Aspartate Amino Transferase 16 U/L (17-59); Bilirubin,Total 0.6 mg/dL (0.2-1.3); Blood Urea Nitrogen 13 mg/dL (9-20); Carbon Dioxide 29 mmol/L (22-30); Chloride 106 mmol/L (98-107); Estimated CRCL calculation 58 ml/min; Estimated Glomerular Filt Rate 60; Glucose 127 mg/dL (65-110); Potassium 3.1 mmol/L (3.4-5.0); Sodium 137 mmol/L (137-145)
[2023-07-28 16:35] LABS: Appearance Urine Turbid (Clear); Bacteria Urine 4+ /hpf; Bilirubin Urine 1+ (Negative); Blood Urine 2+ (Negative); Budding Yeast Urine Present /hpf; Color Urine Dark Yellow (Yellow); Glucose Urine UA Negative (Negative); Ketones Urine Trace mg/dL (Negative); Leukocyte Esterase Ur 3+ LEU/UL (Negative); Mucus Urine Present /lpf; Need Manual Microscopic Reviewed; Nitrate Urine Positive (Negative); Non Pathogenic Casts >20; Protein Urine 2+ mg/dL (Negative); RBC Urine 21-50 /hpf (0-2); Specific Grav Ur 1.019 (1.001-1.035); Squamous Epithelial Cell Urine None Seen /hpf (Few); WBC Urine >100 /hpf (0-3)
[2023-07-28 16:36] LABS: Add Urine Microscopic? YES
[2023-07-28] MEDS: POTASSIUM CHLORIDE 20 MEQ ER TABLET 40 MEQ PO (16:39)
[2023-07-28 16:55] LABS: Lipase 65 U/L (23-300)
[2023-07-28 16:56] LABS: Lactic Acid Reflex 1.3 mmol/L (0.7-2.0)
[2023-07-28 17:02] LABS: D Dimer 0.56 ug/mL (<0.48)
[2023-07-28 17:08] LABS: Troponin I < 0.012 ng/mL (0.000-0.034)
--- NOTE | 2023-07-28 18:07 | ED.GENADULT ---
HPI - General Adult General Chief complaint: Weakness Stated complaint: unresponsive Time Seen by Provider: 07/28/23 15:11 History of Present Illness HPI narrative: Lloyd Redman is a 73 y/o male who presents via EMS from [place]. Per report EMS was called due to pt being unresponsive. EMS arrived and he was lethargic/ breathing / difficult to arouse/ hypotensive and saturated in urine. Pt was given IV fluids in route and by the time he arrived here he was able to state his name/ year and place Patient denies any pain / denies chest pain he states he is here because of his blood pressure Looking at previous charts this seems to be a recurrent theme of being sent for AMS - hx of CVA - UTI's - dehydration Related Data Home Medications Medication Instructions Recorded Confirmed cholecalciferol (vitamin D3) 125 125 mcg PO Q48H 03/28/20 04/12/23 mcg (5,000 unit) capsule metoprolol tartrate 50 mg tablet 100 mg PO Q12HR 01/25/21 04/12/23 terazosin 10 mg capsule 10 mg PO QAM 06/09/21 04/12/23 Lactobacillus acidoph-L.bulgaricus 1 tablet PO BID 04/12/23 04/12/23 1 million cell tablet acetaminophen 325 mg tablet 650 mg PO Q4H PRN Pain (Scale 04/12/23 04/12/23 Score 1-3) albuterol sulfate 2.5 mg/3 mL 2.5 mg inhalation Q6H PRN Wheezing 04/12/23 04/12/23 (0.083 %) solution for nebulization aspirin 81 mg tablet,delayed 81 mg PO DAILY 04/12/23 04/12/23 release atorvastatin 10 mg tablet 10 mg PO HS 04/12/23 04/12/23 fluticasone 100 mcg-salmeterol 50 1 ea inhalation QAM 04/12/23 04/12/23 mcg/dose blistr powdr for inhalation (Corrine Mcconnell) folic acid 1 mg tablet 1 mg PO QAM 04/12/23 04/12/23 losartan 100 mg tablet 100 mg PO HS 04/12/23 04/12/23 nystatin 100,000 unit/gram topical 1 applic topical Q12H PRN reddness 04/12/23 04/12/23 powder omeprazole 20 mg capsule,delayed 20 mg PO QAM 04/12/23 04/12/23 release ramelteon 8 mg tablet 8 mg PO QHS 04/12/23 04/12/23 sennosides 8.6 mg tablet (senna) 8.6 mg PO BID 04/12/23 04/12/23 amlodipine 5 mg tablet 5 mg PO QAM 04/13/23 04/13/23 Allergies Allergy/AdvReac Type Severity Reaction Status Date / Time Penicillins AdvReac Unknown Unknown Verified 04/18/23 11:48 Review of Systems Review of Systems: lethargic / denies any pain ROS unobtainable: Yes unobtainable due to mental status [facility] Past Medical History Medical History Acute cholecystitis 07/2019 treated with antibiotic therapy, no cholecystectomy due to being a poor surgical candidate. 10/08/2019 - returned to hospital with intra-abdominal abscess in the gallbladder fossa and extending around liver - thought to be related to gallbladder perforation. Treated with antibiotics and percutaneous drainage x 3. Alcohol abuse Anxiety Atrial fibrillation BPH (benign prostatic hyperplasia) CHF (congestive heart failure) Echocardiogram on 10/20/19 showing EF 55-60% with variable contractility due to atrial fibrillation. Aortic valve sclerosis without hemodynamically significant stenosis by Doppler. Trace TR, moderate pulmonary hypertension. Small circumferential pericardial effusion. Choledocholithiasis Chronic anemia COPD (chronic obstructive pulmonary disease) Dementia Essential hypertension GERD (gastroesophageal reflux disease) Histoplasmosis Retinal histoplasmosis and very poor vision History of BPH History of TIAs Hyperlipidemia Vitamin D deficiency Surgical History Surgical History History of bilateral cataract extraction History of cholecystectomy History of vasectomy Male circumcision S/P cholecystectomy Family History Family History Sibling Polio Father Lung cancer Mother Hypertension Social History Social History Social History: Patient was drinking (3) 4 oz drinks of Tequila a day prior to
[2023-07-28] MEDS: MEROPENEM 1 GM/NS 100 ML 1 GM/100 ML BAG IVPB (18:52)
--- NOTE | 2023-07-28 20:23 | PM.IMHP ---
H&P: HPI History of Present Illness Date/Time: 07/28/23 20:23 Chief Complaint: ALTERED MENTAL STATUS Narrative: THIS IS A 73-YEAR-OLD MALE WITH PAST MEDICAL HISTORY SIGNIFICANT FOR ALCOHOL ABUSE, ATRIAL FIBRILLATION, CONGESTIVE HEART FAILURE, COPD, CHRONIC ANEMIA, DEMENTIA, HYPERTENSION, GERD, BPH. PATIENT WAS BROUGHT FOR EVALUATION FROM LOCAL [facility] AFTER HE WAS FOUND UNRESPONSIVE INCONTINENT IN URINE. PATIENT IS UNABLE TO GIVE MUCH HISTORY. HE ER HE WAS FOUND TO HAVE NO BURROWS WBCS PRESENT IN HIS URINE. PATIENT HAS BEEN ADMITTED FOR FURTHER EVALUATION MANAGEMENT AND TREATMENT. EXAMINATION: CT brain wo con DATE: 07/28/2023 16:51 INDICATION: Unresponsive. TECHNIQUE: Computed tomography (CT) of the head was performed without intravenous contrast. The mA was adjusted according to patient size. Iterative reconstruction technique was employed. The dose-length product was 605.33 mGy-cm. COMPARISON: None FINDINGS: There is no intracranial hemorrhage, acute infarction, or abnormal intracranial mass lesion. There are old infarcts involving the bilateral basal ganglia. There are scattered areas of low attenuation in the cerebral white matter. The ventricles are normal in size. There are likely changes of ocular lens replacement surgeries. There is mild mucosal thickening in the paranasal sinuses. The mastoid air cells are normal. IMPRESSION: 1. Old infarcts involving the bilateral basal ganglia. 2. Mild nonspecific cerebral white matter disease, which likely represents chronic small vessel ischemic disease. EXAMINATION: XR chest 2V DATE: 07/28/2023 16:55 INDICATION: Weakness. TECHNIQUE: Frontal and lateral views of the chest were obtained. COMPARISON: Chest single view 04/15/2023, chest CT 04/12/2023 FINDINGS: There is a diffuse interstitial pattern in the lungs. No pleural effusion or pneumothorax. Cardiomegaly is noted. IMPRESSION: 1. Diffuse interstitial pattern in the lungs, consistent with mild pulmonary edema versus chronic interstitial lung disease. 2. Cardiomegaly. EXAMINATION: CTA chest PE protocol DATE: 07/28/2023 19:18 INDICATION: Weakness. Elevated d-dimer. TECHNIQUE: Computed tomography angiography (CTA) of the chest was performed with 200 mL Omnipaque-350 intravenous contrast timed to evaluate the pulmonary arteries. Coronal maximum intensity projection 3D-reconstructions were created by the technologist. Automated exposure control and iterative reconstruction technique were employed. The dose-length product was 1001.66 mGy-cm. COMPARISON: Chest CT 04/12/2023 FINDINGS: There is mild emphysema. A calcified left lung nodule and calcified left hilar lymph nodes are consistent with old granulomatous disease. There is mild atelectasis bilaterally. There is chronic septal thickening in the peripheral lungs. No pleural effusion. There is a chronic 5.0 cm nodule in right thyroid lobe. Cardiomegaly is noted. There is an occlusion device at left atrial appendage. There is a small pericardial effusion. There are coronary artery calcifications. There is no pulmonary embolus. Pneumobilia is noted. There are peripelvic cysts in right kidney measuring up to 3.9 cm. There is chronic height loss of of T9, T10, T11, and L1 vertebral bodies. IMPRESSION: 1. No pulmonary embolus. 2. Mild chronic interstitial lung disease. 3. Mild emphysema. 4. Small pericardial effusion. 5. Thyroid nodule. Consider thyroid ultrasound for risk stratification. Review of Systems Review of Systems: ROS unobtainable: Yes unobtainable due to mental status ( LETHARGY/OBTUNDATION) [facility] Past Medical History Medical History Acute cholecystitis 07/2019 treated with antibiotic therapy, no cholecystectomy due to being a poor surgical candidate. 10/08/2019 - returned to hospital with intra-abdominal abscess in the gallbladder fossa and extending around liver - thought to be related to gallbladder p
--- NOTE | 2023-07-28 20:27 | ADMGEN ---
This patient, Lloyd Redman, was admitted to 2 Medical Room 260-. Patient/family oriented to hospital policies and general routines including ID bracelet, bed and alarms, visiting hours, pain management, procedures, bathroom and other care routines, personal items, smoking policy, room service/diet, and visiting hours. Information on how to activate the Rapid Response Team has been discussed. Patient/Family are encouraged to report perceived risks to care and to ask questions if they do not understand what they are told or what they should do.
[2023-07-28] MEDS: METOPROLOL TARTRATE 50 MG TAB 100 MG PO (22:50)
[2023-07-28] MEDS: ATORVASTATIN 10 MG TABLET PO (22:50)
[2023-07-28] MEDS: LOSARTAN POTASSIUM 100 MG TABLET PO (22:50)
[2023-07-29] VITALS (16 sets, daily range): BP systolic 125–173; BP diastolic 71–99; PULSE 56–93; RESP 16–20; TEMP 36.2–36.9; O2SAT 95–100
[2023-07-29] MEDS: MEROPENEM 1 GM/NS 100 ML 1 GM/100 ML BAG IVPB ×3 (06:40→21:05)
[2023-07-29] MEDS: FLUTICASONE/SALMETEROL 45-21 MCG INHALER 1 PUFF 2 PUFF INHALATION ×2 (07:20→20:48)
--- NOTE | 2023-07-29 08:17 | PM.IMPN ---
Progress Note: A&P Assessment and Plan (1) UTI (urinary tract infection): Qualifiers: Hematuria presence: without hematuria Urinary tract infection type: site unspecified Qualified Code(s): N39.0 - Urinary tract infection, site not specified Code(s): N39.0 - Urinary tract infection, site not specified Status: Acute Assessment and Plan: U/A concerning for UTI Started on meropenem urine culture and blood culture pending Patient is on a heart healthy diet and is alert enough to take PO (2) Altered mental status: Qualifiers: Altered mental status type: unspecified Qualified Code(s): R41.82 - Altered mental status, unspecified Code(s): R41.82 - Altered mental status, unspecified Status: Acute Assessment and Plan: likely 2/2 UTI U/A concerning for UTI CT head r/o acute stroke--shows 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, mild nonspecific cerebral white matter disease likely representing chronic small-vessel ischemia Urine drug screen ordered Vitamin B12, folate, TSH, Ammonia ordered PT/OT (3) COPD (chronic obstructive pulmonary disease): Qualifiers: COPD type: unspecified COPD Qualified Code(s): J44.9 - Chronic obstructive pulmonary disease, unspecified Code(s): J44.9 - Chronic obstructive pulmonary disease, unspecified Status: Chronic Assessment and Plan: Stable at this time Continue albuterol prn for SOB continue fluticasone/salmeterol On room air (4) Chronic alcohol use: Code(s): Z72.89 - Other problems related to lifestyle Status: Chronic Assessment and Plan: CIWA add on ethanol Plan Treating for UTI Subjective Date/time seen: 07/29/23 08:17 Interval history: This is a 73 year old male with PMH significant for alcohol abuse, A-Fib, CHF, COPD, anemia, dementia, hypertension, GERD, and BPH. He [facility] local [facility] to be evaluated after being found unresponsive and incontinent of urine. 07/28: Patient is seen resting in bed in no acute distress. He is alert and able to tell me his name but he is unsure of where he is. He knows that the year is 2023 but he does not know the month is July. He does not remember coming to the hospital. ROS is negative. I told him he has a bladder infection which he was surprised goes he denies dysuria, suprapubic pain, and flank pain. Review of Systems Review of Systems: ROS unobtainable: Yes unobtainable due to mental status ( LETHARGY/OBTUNDATION) Exam Narrative: General: well appearing, appears stated age. HEENT: normocephalic, atraumatic. Mucous membranes moist. EOMI, PERRLA, bilateral sclera anicteric, no conjunctival injection. Neck supple without JVD, lymphadenopathy, or bruit. Respiratory: clear to auscultation bilaterally. No rales/rhonic/wheezes. Cardiovascular: Regular rate and rhythm, normal S1-S2 upon auscultation. No murmurs, rubs, or clicks. PMI is nondisplaced, capillary refill less than 3 second. Abdomen: Soft, round, no pulsatile masses, nondistended and nontender. No rebound, no guarding. No CVA tenderness, no hepatosplenomegaly. Bowel sounds present to all four quadrants. No high pitch or tinkling sounds, resonant to percussion. Extremities: No cyanosis, clubbing, or edema present. Pulses are palpable 2/2. Active ROM to all four extremities. Neuro: Alert and orientated x 2. PERRLA. Cranial nerves 2-12 intact without focal deficit. Skin: Warm, dry, and intact, without rash, erythema, or lesion. Lines: PIV Incisions: NA Psych: pleasant, cooperative, normal speech, normal affect, no hallucinations, no dysarthria, confusion Objective Data Vital Signs Vital Signs: Vital Signs - 24 hr 07/28/23 14:30 07/28/23 14:31 07/28/23 14:46 Temperature Pulse Rate 59 L 63 61 Respiratory Rate 17 19 Blood Pressure 101/74 101/74 103/65 Pulse Oximetry 14 L 98 99 Oxygen Delivery Room Air 07/28/23 15:0
[2023-07-29] MEDS: TERAZOSIN HCL 5 MG CAPSULE 10 MG PO (09:06)
[2023-07-29] MEDS: ASPIRIN 81 MG ENTERIC TABLET PO (09:06)
[2023-07-29] MEDS: METOPROLOL TARTRATE 50 MG TAB 100 MG PO ×2 (09:06→21:05)
[2023-07-29] MEDS: FOLIC ACID 1 MG TABLET PO (09:07)
[2023-07-29] MEDS: amLODIPine BESYLATE 5 MG TABLET PO (09:07)
[2023-07-29] MEDS: SENNOSIDES 8.6 MG TABLET PO ×2 (09:07→17:40)
[2023-07-29] MEDS: PANTOPRAZOLE 40 MG TABLET PO (09:07)
[2023-07-29] MEDS: ACIDOPHILUS/BULGARICUS CHEWABLE TABLET 1 TABLET PO ×2 (09:07→17:40)
[2023-07-29 09:17] LABS: Alanine Aminotransferase 12 U/L (6-50); Alkaline Phosphatase 72 U/L (38-126); Ammonia < 9 umol/L (9-30); Anion Gap 4 mmol/L (4-12); Aspartate Amino Transferase 18 U/L (17-59); Bilirubin,Total 0.6 mg/dL (0.2-1.3); Blood Urea Nitrogen 9 mg/dL (9-20); Carbon Dioxide 30 mmol/L (22-30); Chloride 108 mmol/L (98-107); Estimated CRCL calculation 90 ml/min; Estimated Glomerular Filt Rate > 60; Glucose 111 mg/dL (65-110); Magnesium 1.9 mg/dL (1.6-2.3); Potassium 3.3 mmol/L (3.4-5.0); Sodium 142 mmol/L (137-145)
[2023-07-29 09:22] LABS: Basophils Percent Auto 0.3 % (0.2-1.2); Eosinophils Absolute Auto 0.1 K/mm3 (0-0.3); Eosinophils Percent Auto 0.9 % (0-4.4); Hematocrit 43.4 % (42.0-52.0); Hemoglobin 14.5 g/dL (14.0-18.0); Immature Granulocyte Absolute 0.03 K/mm3 (0.00-0.031); Immature Granulocyte Percent A 0.4 % (0-0.5); Lymphocytes Absolute Auto 1.65 K/mm3 (0.9-3.2); Lymphocytes Percent Auto 22.4 % (18.3-44.2); Mean Corpuscular HGB Conc 33.4 g/dl (32-36); Mean Corpuscular Volume 95.8 fl (80-100); Mean Platelet Volume 10.6 fl (7.4-10.4); Monocytes Absolute Auto 0.5 K/mm3 (0.1-0.6); Monocytes Percent Auto 6.8 % (2.6-8.5); Neutrophils Absolute Auto 5.1 K/mm3 (1.3-6.7); Neutrophils Percent Auto 69.2 % (45.5-73.1); Platelet Count Result 148 k/mm3 (150-375); Red Blood Count 4.53 M/mm3 (4.6-6.20); Red Cell Distribution Width 12.1 % (11.5-14.5); White Blood Count 7.4 K/mm3 (4.5-10.0)
[2023-07-29 10:41] LABS: Folic Acid > 20.0 ng/mL (2.76->20)
[2023-07-29 13:07] LABS: Amphetamine Screen Urine Negative (Negative); Barbiturate Screen Urine Negative (Negative); Benzodiazepines Screen Urine Negative (Negative); Cannabinoid Screen Urine Negative (Negative); Cocaine Screen Urine Negative (Negative); Methadone Screen Urine Negative (Negative); Opiate Screen Urine Negative (Negative); Phencyclidine Screen Urine Negative (Negative)
[2023-07-29 17:59] LABS: Ethanol < 10 mg/dL (<10)
[2023-07-29] MEDS: LOSARTAN POTASSIUM 100 MG TABLET PO (21:05)
[2023-07-29] MEDS: ATORVASTATIN 10 MG TABLET PO (21:05)
[2023-07-30] VITALS (17 sets, daily range): BP systolic 95–180; BP diastolic 63–100; PULSE 61–97; RESP 16–20; TEMP 35.7–36.3; O2SAT 95–99
[2023-07-30] MEDS: hydrALAZINE HCL 20 MG/ML VIAL 10 MG IV PUSH (01:58)
[2023-07-30 05:36] LABS: Basophils Percent Auto 0.5 % (0.2-1.2); Eosinophils Absolute Auto 0.1 K/mm3 (0-0.3); Eosinophils Percent Auto 1.6 % (0-4.4); Hematocrit 39.7 % (42.0-52.0); Hemoglobin 13.5 g/dL (14.0-18.0); Immature Granulocyte Absolute 0.02 K/mm3 (0.00-0.031); Immature Granulocyte Percent A 0.4 % (0-0.5); Immature Platelet Fraction Pct 3.9 % (0.9-11.2); Lymphocytes Absolute Auto 1.37 K/mm3 (0.9-3.2); Mean Corpuscular Hemoglobin 31.8 pg (26-34); Mean Corpuscular Volume 93.6 fl (80-100); Mean Platelet Volume 10.6 fl (7.4-10.4); Monocytes Absolute Auto 0.4 K/mm3 (0.1-0.6); Monocytes Percent Auto 7.2 % (2.6-8.5); Neutrophils Absolute Auto 3.8 K/mm3 (1.3-6.7); Neutrophils Percent Auto 66.3 % (45.5-73.1); Platelet Count Result 136 k/mm3 (150-375); Red Blood Count 4.24 M/mm3 (4.6-6.20); Red Cell Distribution Width 12.1 % (11.5-14.5); White Blood Count 5.7 K/mm3 (4.5-10.0)
[2023-07-30 05:46] LABS: Alanine Aminotransferase 9 U/L (6-50); Albumin Level 3.6 g/dL (3.5-5.1); Alkaline Phosphatase 70 U/L (38-126); Anion Gap 6 mmol/L (4-12); Aspartate Amino Transferase 17 U/L (17-59); Bilirubin,Total 0.7 mg/dL (0.2-1.3); Blood Urea Nitrogen 8 mg/dL (9-20); Calcium 9.1 mg/dL (8.4-10.2); Carbon Dioxide 26 mmol/L (22-30); Chloride 107 mmol/L (98-107); Estimated CRCL calculation 104 ml/min; Estimated Glomerular Filt Rate > 60; Glucose 96 mg/dL (65-110); Magnesium 1.8 mg/dL (1.6-2.3); Potassium 3.1 mmol/L (3.4-5.0); Sodium 139 mmol/L (137-145)
[2023-07-30] MEDS: MEROPENEM 1 GM/NS 100 ML 1 GM/100 ML BAG IVPB ×3 (05:57→21:01)
--- NOTE | 2023-07-30 07:45 | P.PNIM_ITS ---
Progress Note: A&P Assessment and Plan (1) UTI (urinary tract infection): Qualifiers: Hematuria presence: without hematuria Urinary tract infection type: site unspecified Qualified Code(s): N39.0 - Urinary tract infection, site not specified Code(s): N39.0 - Urinary tract infection, site not specified Status: Acute Assessment and Plan: U/A concerning for UTI * Started on meropenem * urine culture and blood culture pending * Patient is on a heart healthy diet and is alert enough to take PO 07/29: * cultures still pending (2) Altered mental status: Qualifiers: Altered mental status type: unspecified Qualified Code(s): R41.82 - Altered mental status, unspecified Code(s): R41.82 - Altered mental status, unspecified Status: Acute Assessment and Plan: likely 2/2 UTI * U/A concerning for UTI * CT head r/o acute stroke--shows 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, mild nonspecific cerebral white matter disease likely representing chronic small- vessel ischemia * Urine drug screen ordered * Vitamin B12, folate, TSH, Ammonia ordered * PT/OT * fall precautions 07/29: * Back to his baseline orientation. * Status post fall is morning * CT head and cervical spine pending * No obvious injuries (3) Essential hypertension: Code(s): I10 - Essential (primary) hypertension Status: Chronic Assessment and Plan: On home agents amlodipine, losartan, and metoprolol 07/29: * Blood pressure medications resumed * Required 1 dose of IV hydralazine overnight for BP 180/100 * Add on hydralazine 10 mg IVP Q 8 hours for SBP > 170 mm hg * May need adjustment of home medications * Changed his losartan dosing from night to morning (4) COPD (chronic obstructive pulmonary disease): Qualifiers: COPD type: unspecified COPD Qualified Code(s): J44.9 - Chronic obstructive pulmonary disease, unspecified Code(s): J44.9 - Chronic obstructive pulmonary disease, unspecified Status: Chronic Assessment and Plan: Stable at this time * Continue albuterol prn for SOB * continue fluticasone/salmeterol * On room air (5) Chronic alcohol use: Code(s): Z72.89 - Other problems related to lifestyle Status: Chronic Assessment and Plan: CIWA * add on ethanol was < 10 Plan Treating for UTI PT/OT consult Expect discharge back to his facility when urine culture results Subjective Date/time seen: 07/30/23 07:45 Interval history: This is a 73 year old male with PMH significant for alcohol abuse, A-Fib, CHF, COPD, anemia, dementia, hypertension, GERD, and BPH. He came from a local [place] [facility] to be evaluated after being found unresponsive and incontinent of urine. 07/28: Patient is seen resting in bed in no acute distress. He is alert and able to tell me his name but he is unsure of where he is. He knows that the year is 2023 but he does not know the month is July. He does not remember coming to the hospital. ROS is negative. I told him he has a bladder infection which he was surprised goes he denies dysuria, suprapubic pain, and flank pain. 07/29: Contacted by nurse mario with morning to report that patient fell. His bed alarm was going off so the tech responded found patient sitting on the edge of the bed. Before the tech was able to the patient chair the patient stood up fell face forward striking the top of his head against the door. Patient is shakeel ented to person, month and year but he is talking about how ?the ki
--- NOTE | 2023-07-30 07:45 | PM.IMPN ---
Progress Note: A&P Assessment and Plan (1) UTI (urinary tract infection): Qualifiers: Hematuria presence: without hematuria Urinary tract infection type: site unspecified Qualified Code(s): N39.0 - Urinary tract infection, site not specified Code(s): N39.0 - Urinary tract infection, site not specified Status: Acute Assessment and Plan: U/A concerning for UTI Started on meropenem urine culture and blood culture pending Patient is on a heart healthy diet and is alert enough to take PO 07/29: cultures still pending (2) Altered mental status: Qualifiers: Altered mental status type: unspecified Qualified Code(s): R41.82 - Altered mental status, unspecified Code(s): R41.82 - Altered mental status, unspecified Status: Acute Assessment and Plan: likely 2/2 UTI U/A concerning for UTI CT head r/o acute stroke--shows 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, mild nonspecific cerebral white matter disease likely representing chronic small-vessel ischemia Urine drug screen ordered Vitamin B12, folate, TSH, Ammonia ordered PT/OT fall precautions 07/29: Back to his baseline orientation. Status post fall is morning CT head and cervical spine pending No obvious injuries (3) Essential hypertension: Code(s): I10 - Essential (primary) hypertension Status: Chronic Assessment and Plan: On home agents amlodipine, losartan, and metoprolol 07/29: Blood pressure medications resumed Required 1 dose of IV hydralazine overnight for BP 180/100 Add on hydralazine 10 mg IVP Q 8 hours for SBP > 170 mm hg May need adjustment of home medications Changed his losartan dosing from night to morning (4) COPD (chronic obstructive pulmonary disease): Qualifiers: COPD type: unspecified COPD Qualified Code(s): J44.9 - Chronic obstructive pulmonary disease, unspecified Code(s): J44.9 - Chronic obstructive pulmonary disease, unspecified Status: Chronic Assessment and Plan: Stable at this time Continue albuterol prn for SOB continue fluticasone/salmeterol On room air (5) Chronic alcohol use: Code(s): Z72.89 - Other problems related to lifestyle Status: Chronic Assessment and Plan: CIWA add on ethanol was < 10 Plan Treating for UTI PT/OT consult Expect discharge back to his facility when urine culture results Subjective Date/time seen: 07/30/23 07:45 Interval history: This is a 73 year old male with PMH significant for alcohol abuse, A-Fib, CHF, COPD, anemia, dementia, hypertension, GERD, and BPH. He came from a local group home to be evaluated after being found unresponsive and incontinent of urine. 07/28: Patient is seen resting in bed in no acute distress. He is alert and able to tell me his name but he is unsure of where he is. He knows that the year is 2023 but he does not know the month is July. He does not remember coming to the hospital. ROS is negative. I told him he has a bladder infection which he was surprised goes he denies dysuria, suprapubic pain, and flank pain. 07/29: Contacted by nurse a with morning to report that patient fell. His bed alarm was going off so the tech responded found patient sitting on the edge of the bed. Before the tech was able to the patient chair the patient stood up fell face forward striking the top of his head against the door. Patient is oriented to person, month and year but he is talking about how ?the kids helped this morning?. He has no obvious external injuries and no point tenderness to his cervical spine. Will obtain CT brain and cervical spine without contrast. He does report headache. Review of Systems Review of Systems: All systems reviewed & are unremarkable except as noted in HPI and below Exam Narrative: General: well appearing, appears stated age. HEENT: normocephalic, atraumatic. Mucous membra
[2023-07-30] MEDS: FLUTICASONE/SALMETEROL 45-21 MCG INHALER 1 PUFF 2 PUFF INHALATION ×2 (08:28→20:16)
--- NOTE | 2023-07-30 09:50 | PC.NURSE ---
pt to CT via bed
--- NOTE | 2023-07-30 10:00 | PC.NURSE ---
pt had witnessed fall in room, no acute distress noted, pt was able to assist us getting him to chair, provider notified
[2023-07-30] MEDS: ACETAMINOPHEN 325 MG TABLET 650 MG PO (10:20)
[2023-07-30] MEDS: POTASSIUM CHLORIDE 20 MEQ ER TABLET 40 MEQ PO (10:23)
[2023-07-30] MEDS: METOPROLOL TARTRATE 50 MG TAB 100 MG PO ×2 (10:23→21:00)
[2023-07-30] MEDS: PANTOPRAZOLE 40 MG TABLET PO (10:24)
[2023-07-30] MEDS: SENNOSIDES 8.6 MG TABLET PO ×2 (10:24→16:02)
[2023-07-30] MEDS: amLODIPine BESYLATE 5 MG TABLET PO (10:24)
[2023-07-30] MEDS: TERAZOSIN HCL 5 MG CAPSULE 10 MG PO (10:24)
[2023-07-30] MEDS: FOLIC ACID 1 MG TABLET PO (10:24)
[2023-07-30] MEDS: ASPIRIN 81 MG ENTERIC TABLET PO (10:24)
[2023-07-30] MEDS: ACIDOPHILUS/BULGARICUS CHEWABLE TABLET 1 TABLET PO ×2 (10:24→16:02)
[2023-07-30] MEDS: LOSARTAN POTASSIUM 100 MG TABLET PO (10:25)
--- NOTE | 2023-07-30 13:26 | PCPTNOTE ---
Attempted PT evaluation. Pt found sleeping. Pt easily arousable. However, Pt adamantly refused to participate in skilled therapy. RN Aware.
[2023-07-30] MEDS: TAMSULOSIN HCL 0.4 MG CAPSULE PO (16:02)
[2023-07-30 17:45] LABS: Free T4 Free Thyroxine 1.49 ng/mL (0.78-2.19)
[2023-07-30] MEDS: ATORVASTATIN 10 MG TABLET PO (21:00)
[2023-07-31] VITALS (13 sets, daily range): BP systolic 121–152; BP diastolic 77–87; PULSE 78–108; RESP 16–20; TEMP 36.3–36.6; O2SAT 96–98
[2023-07-31] MEDS: MEROPENEM 1 GM/NS 100 ML 1 GM/100 ML BAG IVPB ×3 (05:12→20:44)
[2023-07-31 06:06] LABS: Basophils Percent Auto 0.3 % (0.2-1.2); Eosinophils Absolute Auto 0.1 K/mm3 (0-0.3); Eosinophils Percent Auto 1.5 % (0-4.4); Hematocrit 39.6 % (42.0-52.0); Hemoglobin 13.2 g/dL (14.0-18.0); Immature Granulocyte Absolute 0.01 K/mm3 (0.00-0.031); Immature Granulocyte Percent A 0.2 % (0-0.5); Lymphocytes Absolute Auto 1.16 K/mm3 (0.9-3.2); Lymphocytes Percent Auto 18.7 % (18.3-44.2); Mean Corpuscular HGB Conc 33.3 g/dl (32-36); Mean Corpuscular Hemoglobin 31.5 pg (26-34); Mean Corpuscular Volume 94.5 fl (80-100); Mean Platelet Volume 10.6 fl (7.4-10.4); Monocytes Absolute Auto 0.4 K/mm3 (0.1-0.6); Monocytes Percent Auto 6.5 % (2.6-8.5); Neutrophils Absolute Auto 4.5 K/mm3 (1.3-6.7); Neutrophils Percent Auto 72.8 % (45.5-73.1); Platelet Count Result 141 k/mm3 (150-375); Red Blood Count 4.19 M/mm3 (4.6-6.20); Red Cell Distribution Width 12.3 % (11.5-14.5); White Blood Count 6.2 K/mm3 (4.5-10.0)
[2023-07-31 06:21] LABS: Alanine Aminotransferase 10 U/L (6-50); Albumin Level 3.6 g/dL (3.5-5.1); Alkaline Phosphatase 66 U/L (38-126); Anion Gap 8 mmol/L (4-12); Aspartate Amino Transferase 16 U/L (17-59); Bilirubin,Total 0.6 mg/dL (0.2-1.3); Blood Urea Nitrogen 17 mg/dL (9-20); Carbon Dioxide 22 mmol/L (22-30); Chloride 109 mmol/L (98-107); Estimated CRCL calculation 65 ml/min; Estimated Glomerular Filt Rate > 60; Glucose 120 mg/dL (65-110); Magnesium 1.8 mg/dL (1.6-2.3); Potassium 3.6 mmol/L (3.4-5.0); Sodium 139 mmol/L (137-145)
[2023-07-31] MEDS: FLUTICASONE/SALMETEROL 45-21 MCG INHALER 1 PUFF 2 PUFF INHALATION ×2 (07:42→21:36)
[2023-07-31] MEDS: METOPROLOL TARTRATE 50 MG TAB 100 MG PO ×2 (09:28→20:45)
[2023-07-31] MEDS: TERAZOSIN HCL 5 MG CAPSULE 10 MG PO (09:28)
[2023-07-31] MEDS: FOLIC ACID 1 MG TABLET PO (09:29)
[2023-07-31] MEDS: amLODIPine BESYLATE 5 MG TABLET PO (09:29)
[2023-07-31] MEDS: ASPIRIN 81 MG ENTERIC TABLET PO (09:29)
[2023-07-31] MEDS: ACIDOPHILUS/BULGARICUS CHEWABLE TABLET 1 TABLET PO ×2 (09:29→18:01)
[2023-07-31] MEDS: PANTOPRAZOLE 40 MG TABLET PO (09:29)
[2023-07-31] MEDS: TAMSULOSIN HCL 0.4 MG CAPSULE PO (09:30)
[2023-07-31] MEDS: SENNOSIDES 8.6 MG TABLET PO ×2 (09:30→18:01)
[2023-07-31] MEDS: LOSARTAN POTASSIUM 100 MG TABLET PO (09:30)
--- NOTE | 2023-07-31 15:33 | PM.IMPN ---
Progress Note: A&P Assessment and Plan (1) UTI (urinary tract infection): Qualifiers: Hematuria presence: without hematuria Urinary tract infection type: site unspecified Qualified Code(s): N39.0 - Urinary tract infection, site not specified Code(s): N39.0 - Urinary tract infection, site not specified Status: Acute Assessment and Plan: U/A concerning for UTI meropenem urine culture showed E.coli blood culture pending (2) Altered mental status: Qualifiers: Altered mental status type: unspecified Qualified Code(s): R41.82 - Altered mental status, unspecified Code(s): R41.82 - Altered mental status, unspecified Status: Acute Assessment and Plan: likely 2/2 UTI U/A concerning for UTI CT head r/o acute stroke--shows 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, mild nonspecific cerebral white matter disease likely representing chronic small-vessel ischemia Urine drug screen negative Vitamin B12, folate, TSH, Ammonia PT/OT fall precautions CT head and cervical spine negative for acute changes (3) Essential hypertension: Code(s): I10 - Essential (primary) hypertension Status: Chronic Assessment and Plan: On home agents amlodipine, losartan, and metoprolol hydralazine 10 mg IVP Q 8 hours for SBP > 170 mm hg May need adjustment of home medications (4) COPD (chronic obstructive pulmonary disease): Qualifiers: COPD type: unspecified COPD Qualified Code(s): J44.9 - Chronic obstructive pulmonary disease, unspecified Code(s): J44.9 - Chronic obstructive pulmonary disease, unspecified Status: Chronic Assessment and Plan: Stable at this time Continue albuterol prn for SOB continue fluticasone/salmeterol On room air (5) Chronic alcohol use: Code(s): Z72.89 - Other problems related to lifestyle Status: Chronic Assessment and Plan: CIWA add on ethanol was < 10 Plan Subjective Date/time seen: 07/31/23 15:33 Interval history: This is a 73 year old male with PMH significant for alcohol abuse, A-Fib, CHF, COPD, anemia, dementia, hypertension, GERD, and BPH. He came [facility] a local [facility] to be evaluated after being found unresponsive and incontinent of urine. Patient in no acute distress this morning on exam. Continue meropenem, awaiting final urine culture results with BC pending with prelim growth of gram + cocci. Thyroid US shoed nodule recommending biopsy. Biopsy ordered and consult to oncology placed. Review of Systems Review of Systems: All systems reviewed & are unremarkable except as noted in HPI and below Exam Narrative: General: well appearing, appears stated age. HEENT: normocephalic, atraumatic. Mucous membranes moist. EOMI, PERRLA. Respiratory: Lungs clear to auscultation bilaterally. Cardiovascular: RRR, normal S1-S2 upon auscultation. No murmurs, rubs, or clicks. Abdomen: Soft, nondistended and nontender. Bowel sounds present to all four quadrants. Extremities: No cyanosis, clubbing, or edema present. Pulses are palpable 2/2. Active ROM to all four extremities. Neuro: Alert and orientated x 3. Cranial nerves 2-12 intact without focal deficit. Skin: Warm, dry, and intact, without rash, erythema, or lesion. Psych: pleasant, cooperative, normal speech, normal affect Objective Data Vital Signs Vital Signs: Vital Signs - 24 hr 07/30/23 16:00 07/30/23 20:20 07/30/23 20:18 Temperature 97.1 F L Pulse Rate 70 78 81 Respiratory Rate 18 Blood Pressure 96/63 L Pulse Oximetry 95 97 Oxygen Delivery Room Air 07/30/23 21:00 07/30/23 20:00 07/30/23 20:00 Temperature Pulse Rate 78 80 Respiratory Rate Blood Pressure Pulse Oximetry Oxygen Delivery Room Air 07/31/23 00:00 07/31/23 04:00 07/31/23 05:40 Temperature 97.8 F Pulse Rate 79 89 83 Respiratory Rate 20 Blood Pressure 152/87 H Pulse
--- NOTE | 2023-07-31 16:03 | PCOTNOTE ---
Attempetd to see pt. for occupational therpay evaluation. Pt. refused to participate at this time and would like to sleep. Nursing aware.
[2023-07-31] MEDS: ATORVASTATIN 10 MG TABLET PO (20:45)
[2023-08-01] VITALS (33 sets, daily range): BP systolic 99–169; BP diastolic 64–113; PULSE 74–161; RESP 16–30; TEMP 36.1–36.9; O2SAT 94–99
--- NOTE | 2023-08-01 | ECHO_ITS ---
Patient Info Name: Lloyd Redman Age: 73 years : 1950 Gender: Male Ht: 72 in Wt: 191 lbs BSA: 2.11 m2 HR: 84 bpm BP: 138 / 86 mmHg Heart Rhythm: Atrial Fibrillation Technical Quality: Fair Exam Date: 08/01/2023 7:43 AM Exam Location: Echo Lab Patient Status: Inpatient Admit Date: 07/28/2023 Staff Ordering Physician: Freedom Wang MD Business Analytics Manager: Felicia Kahn RDCS Attending Provider: Devin Villanueva MD Referring Physician: Felipe ALLRED; Exam Type: CA echo doppler color flow Study Info Indications - Lung edema Complete two-dimensional, color flow and Doppler transthoracic echocardiogram is performed. Summary 1. Complete two-dimensional, color flow and Doppler transthoracic echocardiogram is performed. 2. Left ventricular chamber dimension is normal. 3. Left ventricular systolic function is normal, estimated at 65-70%. 4. There is moderately increased left ventricular wall thickness. 5. The left ventricular diastolic function is indeterminate. 6. Left atrial chamber dimension is severely enlarged. 7. Right atrial chamber dimension is moderately enlarged. 8. There is trace mitral valve regurgitation. 9. There is trace tricuspid valve regurgitation. 10. No pulmonary hypertension, estimated pulmonary arterial systolic pressure is 26 mmHg. 11. The aortic root size at the sinus of Valsalva is mildly dilated at 4.[address] angiogram of the chest if clinically indicated. Left Ventricle Left ventricular chamber dimension is normal. Left ventricular systolic function is normal, estimated at 65-70%. There is moderately increased left ventricular wall thickness. The left ventricular diastolic function is indeterminate. Right Ventricle Right ventricular chamber dimension is normal. Right ventricular systolic function is normal. Left Atria Left atrial chamber dimension is severely enlarged. Right Atria Right atrial chamber dimension is moderately enlarged. Aortic Valve The aortic valve is not well visualized. There is no aortic valve stenosis. There is no aortic valve regurgitation. There is mild aortic valve calcification. Pulmonic Valve The pulmonic valve is not well visualized. There is mild pulmonic regurgitation. Mitral Valve The mitral valve has thickened leaflets. There is trace mitral valve regurgitation. The mitral valve annulus is severely calcified. Tricuspid Valve The tricuspid valve leaflets are normal. There is trace tricuspid valve regurgitation. No pulmonary hypertension, estimated pulmonary arterial systolic pressure is 26 mmHg. Pericardium/Pleural The pericardium appears normal. There is no pericardial effusion. Inferior Vena Cava Normal inferior vena cava with >50% collapse upon inspiration consistent with normal right atrial pressure, 5 mmHg. Aorta The aortic root size at the sinus of Valsalva is mildly dilated at 4.[address] angiogram of the chest if clinically indicated. There is mild aortic atherosclerosis. Left Ventricular Outflow Tract Name Value Normal LVOT 2D LVOT Diameter 2.0 cm LVOT Doppler LVOT Peak Gradient 2 mmHg LVOT Mean Gradient 1 mmHg LVOT VTI
[2023-08-01] MEDS: METOPROLOL TARTRATE INJ 5 MG/5 ML VIAL 2.5 MG IV PUSH (03:54)
--- NOTE | 2023-08-01 04:00 | ECG_ITS ---
SEE SCANNED COPY FOR CONFIRMED REPORT MTDD
[2023-08-01] MEDS: LEVALBUTEROL NEB 1.25 MG/3 ML INHALATION (04:11)
[2023-08-01 04:29] LABS: Alveolar/Arterial O2 Gradient 252.7 mmHg; Base Excess ABG -0.7 mEq/l (+/-2.0); Carboxyhemoglobin 0.3 % THb (0-2.0); Fractional Inspired Oxygen 50 %; HCO3 ABG 22.3 mEq/l (22.0-26.0); Methemoglobin ABG 0.2 %THb (0-1.5); Oxygen Content ABG 19.8 %vol (16.0-22.0); Oxygen Saturation ABG 94.3 % (95.0-100.0); Oxyhemoglobin 92.7 % THb (90.0-100.0); PCO2 ABG 32.7 mmHg (35.0-45.0); PO2 FiO2 Ratio Arterial Blood 1.34 %; Reduced Hemoglobin 6.8 %THb (0-5.0); Total Hemoglobin 15.2 g/dL (12.0-18.0); pH ABG 7.452 (7.350-7.450)
[2023-08-01 04:30] LABS: Device NASAL CANNULA; Modified Allen's Test Pass; Site Drawn RIGHT RADIAL
[2023-08-01] MEDS: MORPHINE SULFATE (*CRX) 4 MG/ML INJ IV PUSH (04:34)
[2023-08-01] MEDS: FUROSEMIDE INJ 40 MG/4 ML VIAL IV PUSH ×2 (04:34→10:16)
[2023-08-01] MEDS: dilTIAZem HCl INJ 25 MG/5 ML VIAL 20 MG IV PUSH (04:42)
[2023-08-01] MEDS: dilTIAZem 100 MG/100 ML 100 MG/100 ML BAG 10 MG IV CONT (04:43)
[2023-08-01 04:44] LABS: Basophils Percent Auto 0.4 % (0.2-1.2); Eosinophils Absolute Auto 0.2 K/mm3 (0-0.3); Eosinophils Percent Auto 1.8 % (0-4.4); Hematocrit 42.5 % (42.0-52.0); Hemoglobin 14.4 g/dL (14.0-18.0); Immature Granulocyte Absolute 0.02 K/mm3 (0.00-0.031); Immature Granulocyte Percent A 0.2 % (0-0.5); Lymphocytes Absolute Auto 0.95 K/mm3 (0.9-3.2); Lymphocytes Percent Auto 9.4 % (18.3-44.2); Mean Corpuscular HGB Conc 33.9 g/dl (32-36); Mean Corpuscular Hemoglobin 32.1 pg (26-34); Mean Corpuscular Volume 94.7 fl (80-100); Mean Platelet Volume 10.2 fl (7.4-10.4); Monocytes Absolute Auto 0.4 K/mm3 (0.1-0.6); Monocytes Percent Auto 3.8 % (2.6-8.5); Neutrophils Absolute Auto 8.5 K/mm3 (1.3-6.7); Neutrophils Percent Auto 84.4 % (45.5-73.1); Platelet Count Result 138 k/mm3 (150-375); Red Blood Count 4.49 M/mm3 (4.6-6.20); Red Cell Distribution Width 12.3 % (11.5-14.5); White Blood Count 10.1 K/mm3 (4.5-10.0)
--- NOTE | 2023-08-01 04:46 | PC.NURSE ---
Daughter Latha and Raine notified of pt change and condition and transfer to IMU.
--- NOTE | 2023-08-01 04:48 | PM.EVENT ---
Event Note Event Note Event Note: [employer] called due to respiratory distress, elevated heart rate. Objective:Upon arriving to patient's room noted to be in moderate respiratory distress, patient undergoing breathing treatment. Subjective: Patient is in moderate respiratory distress wanting to use the bathroom, restless. Vitals: Heart rate: 170 blood pressure 168/113 respiratory rate 30 oxygen saturation 97% on 4 L general: Patient is sitting in bed in moderate respiratory distress audible crackles and wheezes HEENT: Atraumatic, normocephalic, no JVD, supple, PERRLA, EOM intact. respiratory: Diminished throughout, crackles throughout, wheezing. cardiovascular: Tachycardia abdomen: Soft nontender nondistended no hepato splenomegaly extremities: No edema central nervous system: Awake alert moves all limbs purposely cranial nerves ii-xii grossly intact skin: Generalized pallor assessment and plan: 1. Acute hypoxic respiratory failure / acute flash pulmonary edema / lung infiltrate: On supplemental oxygen by nasal cannula, aggressive diuresis, CBC, BMP, magnesium, phosphorus, lactic acid, troponins, EKG, chest x-ray , blood cultures. transferred to IMU 2. Atrial fibrillation with rapid ventricular response: Start diltiazem drip bolus of diltiazem 20 mg IV push, echocardiogram in a.m., cardiology consult.
[2023-08-01] MEDS: MEROPENEM 1 GM/NS 100 ML 1 GM/100 ML BAG IVPB (04:52)
[2023-08-01 04:54] LABS: Alanine Aminotransferase 11 U/L (6-50); Albumin Level 4.1 g/dL (3.5-5.1); Alkaline Phosphatase 78 U/L (38-126); Anion Gap 8 mmol/L (4-12); Aspartate Amino Transferase 18 U/L (17-59); Bilirubin,Total 0.8 mg/dL (0.2-1.3); Blood Urea Nitrogen 17 mg/dL (9-20); Calcium 9.4 mg/dL (8.4-10.2); Carbon Dioxide 24 mmol/L (22-30); Chloride 105 mmol/L (98-107); Estimated CRCL calculation 71 ml/min; Estimated Glomerular Filt Rate > 60; Glucose 133 mg/dL (65-110); Magnesium 1.7 mg/dL (1.6-2.3); Potassium 4.2 mmol/L (3.4-5.0); Sodium 137 mmol/L (137-145)
[2023-08-01 05:19] LABS: Troponin I < 0.012 ng/mL (0.000-0.034)
[2023-08-01 05:21] LABS: Phosphorus 3.3 mg/dL (2.5-4.5)
[2023-08-01 05:48] LABS: Lactic Acid Reflex 1.5 mmol/L (0.7-2.0)
--- NOTE | 2023-08-01 06:12 | PC.NURSE ---
Heart rate in the 70's to 80's. Dr. Wang notified and orders receieved to discontinue cardizem drip and resume PO Metoprolol BID. Will continue to monitor.
[2023-08-01 06:28] LABS: Glucose Point of Care 126 mg/dl (65-105)
[2023-08-01 08:14] LABS: Thyroglobulin 44.9 ng/mL; Thyroglobulin Antibodies <1 IU/mL (< or = 1)
[2023-08-01] MEDS: FLUTICASONE/SALMETEROL 45-21 MCG INHALER 1 PUFF 2 PUFF INHALATION ×2 (09:08→19:40)
--- NOTE | 2023-08-01 09:54 | PCOTNOTE ---
Attempted to see pt for OT evaluation. Per practical nursing teacher, pt would not awaken to take meds this morning and has been sleeping and not responding to attempts to awaken further. OT attempted to assist pt to sit to EOB but pt was keeping his eyes closed and resisting BLE movement toward the EOB. Pt occasionally yelled out what are you doing and leave me alone . Pt boosted up in bed dependently and left with practical nursing teacher. Will continue to attempt as able.
--- NOTE | 2023-08-01 10:17 | PM.CNCAR ---
Assessment and Plan Assessment and plan (1) Atrial fibrillation with rapid ventricular response: Code(s): I48.91 - Unspecified atrial fibrillation Status: Chronic Assessment and Plan: Patient has a history of Persistent longstanding atrial fibrillation generally with reasonably controlled ventricular response as he was at presentation. Per records as an outpatient he was on metoprolol tartrate 100 mg twice daily. However, patient developed AFib with RVR with heart rates up to the 170s while receiving Xopenex nebulizer treatment developing was felt to be flash pulmonary edema. He was given IV diltiazem, IV Lasix with improvement in his heart rate and respiratory status. 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 Nonetheless, patient remains at elevated risk for embolic stroke secondary to atrial fibrillation. CHADS2 Vasc score 4. Continue aspirin 81 mg daily. Obtain 2D echocardiogram to assess LV function, chamber size, valve pathology pulmonary pressures. Recommendation follow after review. (2) Acute respiratory failure: Qualifiers: Respiratory failure complication: hypoxia Qualified Code(s): J96.01 - Acute respiratory failure with hypoxia Code(s): J96.00 - Acute respiratory failure, unspecified whether with hypoxia or hypercapnia Status: Acute Assessment and Plan: Patient appears to developed acute respiratory failure requiring significant O2 supplementation, clinical concern for flash pulmonary edema requiring up to 4 L nasal cannula during Xopenex nebulizer treatment. Patient was also found to be very tachycardic at that time is unclear whether this was the precipitating event resulting in pulmonary edema versus a consequence of acute respiratory compromise from an alternative explanation. Nonetheless, concern persists with regards to aspiration particular given reviewed imaging suggestive right lower lobe infiltrate. Repeat CT today is pending. Recommendation to follow thereafter. Defer to primary service with regards to appropriate antibiotic use as well as bronchodilator therapy. Of be cautious with albuterol and or Xopenex nebulizer particular given his tachycardic response although be less likely certainly with Xopenex over albuterol. And continue IV Lasix for now monitor renal function electrolytes very closely. (3) Flash pulmonary edema: Code(s): J81.0 - Acute pulmonary edema Status: Acute Assessment and Plan: As above, continue IV Lasix for now. Accurate input and output, daily weight. Monitor for hypotension. Monitor renal function electrolytes closely. I suspect this will need to be reduced moving forward but as patient is not taking NPO continue IV for the time being. May consider reduction to daily dosing tomorrow. (4) Urinary tract infection: Qualifiers: Hematuria presence: with hematuria Urinary tract infection type: acute cystitis Qualified Code(s): N30.01 - Acute cystitis with hematuria Code(s): N39.0 - Urinary tract infection, site not specified Status: Acute Assessment and Plan: Management per primary service. Remains on IV meropenem 1 g every 8 hours. (5) Recurrent falls: Code(s): R29.6 - Repeated falls Status: Acute Assessment and Plan: As above, patient suffered another fall this hospitalization. Repeat CT with no acute intracranial process no interval change from prior study. As result, patient is not a candidate for systemic anticoagulation as risk for bleeding complications which may be catastrophic exceed benefit. Nonetheless, patient remains at high risk for embolic stroke due to atrial fibrillation. (6) Altered mental status: Qualifiers: Altered mental status type: unspecified Qualified Code(s): R41.82 - Alter
--- NOTE | 2023-08-01 12:03 | PC.NURSE ---
Patient is lethargic and not following commands at the time of assessment (0830am). Opens his eyes after being asked several times, but is unable to maintain eye contact. He will not follow any other commands when directed. PO medications held at this time related to lethargy, MD/RN MATERNAL CHILD made aware. Orders received to get a head CT.
--- NOTE | 2023-08-01 12:35 | P.PNIM_ITS ---
Progress Note: A&P Assessment and Plan (1) UTI (urinary tract infection): Qualifiers: Hematuria presence: without hematuria Urinary tract infection type: site unspecified Qualified Code(s): N39.0 - Urinary tract infection, site not specified Code(s): N39.0 - Urinary tract infection, site not specified Status: Acute Assessment and Plan: * U/A concerning for UTI * transitioned to PO Macrobid * urine culture showed E.coli * blood culture pending (2) Altered mental status: Qualifiers: Altered mental status type: unspecified Qualified Code(s): R41.82 - Altered mental status, unspecified Code(s): R41.82 - Altered mental status, unspecified Status: Acute Assessment and Plan: * patient required cross cover overnight on 07/30 due to increased HR, respiratory distress * patient now unwilling to answer questions or respond, arouses easily but is not his baseline behavior * previous CT head r/o acute stroke--shows 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, mild nonspecific cerebral white matter disease likely representing chronic small-vessel ischemia * Urine drug screen negative * Vitamin B12, folate, TSH, Ammonia * PT/OT * fall precautions * repeat CT head today negative for acute changes (3) Essential hypertension: Code(s): I10 - Essential (primary) hypertension Status: Chronic Assessment and Plan: On home agents amlodipine, losartan, and metoprolol * hydralazine 10 mg IVP Q 8 hours for SBP > 170 mm hg * May need adjustment of home medications (4) COPD (chronic obstructive pulmonary disease): Qualifiers: COPD type: unspecified COPD Qualified Code(s): J44.9 - Chronic obstructive pulmonary disease, unspecified Code(s): J44.9 - Chronic obstructive pulmonary disease, unspecified Status: Chronic Assessment and Plan: * Continue albuterol prn for SOB with caution due to tachycardia overnight * continue fluticasone/salmeterol * patient now requiring 2L O2 weaned down from 8 L overnight * CXR showed basilar pulmonary edema/atelectasis versus pneumonia. Correlate clinically. Probable mild central congestive change. * ABG showed pCO2 32.7, pO2 67 with O2 sat 94.3 * IV lasix BID given, will continue to monitor * CTA done today showed no PE, Right lower lobe airspace consolidation. Correlate for pneumonia versus atelectasis. Probable mild subpleural reticulation the lungs. Minimal pericardial effusion. (5) Chronic alcohol use: Code(s): Z72.89 - Other problems related to lifestyle Status: Chronic Assessment and Plan: CIWA * add on ethanol was < 10 (6) CHF (congestive heart failure): Qualifiers: Heart failure chronicity: chronic Heart failure type: systolic Qualified Code(s): I50.22 - Chronic systolic (congestive) heart failure Code(s): I50.9 - Heart failure, unspecified Status: Chronic Assessment and Plan: * cardiology consulted after afib and tachycardic event overnight, appreciate recs * ECHO ordered * trops normal * evidence of fluid on exam and imaging * Lasix BID IV and hope to transition to PO tomorrow * CTA negative for PE, showed minimal pericardial effusion (7) Atrial fibrillation: Code(s): I48.91 - Unspecified atrial fibrillation Status: Chronic Assessment and Plan: * patient s/p diltiazem drip since tachycardia with afib overnight * continue PO metoprolol * cardiology consulted * not currently a candidate for anticoagulation given falls
--- NOTE | 2023-08-01 12:35 | PM.IMPN ---
Progress Note: A&P Assessment and Plan (1) UTI (urinary tract infection): Qualifiers: Hematuria presence: without hematuria Urinary tract infection type: site unspecified Qualified Code(s): N39.0 - Urinary tract infection, site not specified Code(s): N39.0 - Urinary tract infection, site not specified Status: Acute Assessment and Plan: U/A concerning for UTI transitioned to PO Macrobid urine culture showed E.coli blood culture pending (2) Altered mental status: Qualifiers: Altered mental status type: unspecified Qualified Code(s): R41.82 - Altered mental status, unspecified Code(s): R41.82 - Altered mental status, unspecified Status: Acute Assessment and Plan: patient required cross cover overnight on 07/30 due to increased HR, respiratory distress patient now unwilling to answer questions or respond, arouses easily but is not his baseline behavior previous CT head r/o acute stroke--shows 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, mild nonspecific cerebral white matter disease likely representing chronic small-vessel ischemia Urine drug screen negative Vitamin B12, folate, TSH, Ammonia PT/OT fall precautions repeat CT head today negative for acute changes (3) Essential hypertension: Code(s): I10 - Essential (primary) hypertension Status: Chronic Assessment and Plan: On home agents amlodipine, losartan, and metoprolol hydralazine 10 mg IVP Q 8 hours for SBP > 170 mm hg May need adjustment of home medications (4) COPD (chronic obstructive pulmonary disease): Qualifiers: COPD type: unspecified COPD Qualified Code(s): J44.9 - Chronic obstructive pulmonary disease, unspecified Code(s): J44.9 - Chronic obstructive pulmonary disease, unspecified Status: Chronic Assessment and Plan: Continue albuterol prn for SOB with caution due to tachycardia overnight continue fluticasone/salmeterol patient now requiring 2L O2 weaned down from 8 L overnight CXR showed basilar pulmonary edema/atelectasis versus pneumonia. Correlate clinically. Probable mild central congestive change. ABG showed pCO2 32.7, pO2 67 with O2 sat 94.3 IV lasix BID given, will continue to monitor CTA done today showed no PE, Right lower lobe airspace consolidation. Correlate for pneumonia versus atelectasis. Probable mild subpleural reticulation the lungs. Minimal pericardial effusion. (5) Chronic alcohol use: Code(s): Z72.89 - Other problems related to lifestyle Status: Chronic Assessment and Plan: CIWA add on ethanol was < 10 (6) CHF (congestive heart failure): Qualifiers: Heart failure chronicity: chronic Heart failure type: systolic Qualified Code(s): I50.22 - Chronic systolic (congestive) heart failure Code(s): I50.9 - Heart failure, unspecified Status: Chronic Assessment and Plan: cardiology consulted after afib and tachycardic event overnight, appreciate recs ECHO ordered trops normal evidence of fluid on exam and imaging Lasix BID IV and hope to transition to PO tomorrow CTA negative for PE, showed minimal pericardial effusion (7) Atrial fibrillation: Code(s): I48.91 - Unspecified atrial fibrillation Status: Chronic Assessment and Plan: patient s/p diltiazem drip since tachycardia with afib overnight continue PO metoprolol cardiology consulted not currently a candidate for anticoagulation given falls continue aspirin tele monitoring (8) Pneumonia: Code(s): J18.9 - Pneumonia, unspecified organism Status: Acute Assessment and Plan: as evidenced on CXR, CTA this morning started on Rocephin and Azithromycin WBC jump to 10.1 this morning now on 2 L NC scheduled breathing treatments, will caution with albuterol Plan Subjective Date/time seen: 08/01/23 12:35 Interval history: This
--- NOTE | 2023-08-01 14:10 | PCRCNOTE ---
RT attempted to obtain ABG. Patient refused. RN aware.
[2023-08-01] MEDS: AZITHROMYCIN 500 MG/NS 250 ML 500 MG/250 ML BAG 250 MG IVPB (14:21)
[2023-08-01] MEDS: cefTRIAXone 2 GM/NS 100 ML 2 GM/100 ML BAG IVPB (14:21)
[2023-08-01 14:47] LABS: Glucose Point of Care 125 mg/dl (65-105)
--- NOTE | 2023-08-01 14:47 | PCRCNOTE ---
RT attempted to obtain ABG. RN aware.
[2023-08-01 15:37] LABS: Alveolar/Arterial O2 Gradient 86.1 mmHg; Fractional Inspired Oxygen 28 %; HCO3 ABG 25.8 mEq/l (22.0-26.0); Oxygen Content ABG 18.2 %vol (16.0-22.0); Oxygen Saturation ABG 94.8 % (95.0-100.0); PCO2 ABG 37.3 mmHg (35.0-45.0); PO2 ABG 69.5 mmHg (80.0-100.0); PO2 FiO2 Ratio Arterial Blood 2.48 %; Total Hemoglobin 13.9 g/dL (12.0-18.0); pH ABG 7.457 (7.350-7.450)
[2023-08-01 15:38] LABS: Device NASAL CANNULA; Modified Allen's Test Pass; Site Drawn RIGHT RADIAL
[2023-08-01] MEDS: ATORVASTATIN 10 MG TABLET PO (20:48)
[2023-08-01] MEDS: METOPROLOL TARTRATE 50 MG TAB 100 MG PO (20:48)
[2023-08-02] VITALS (20 sets, daily range): BP systolic 90–141; BP diastolic 58–94; PULSE 75–110; RESP 16–24; TEMP 36.3–37.2; O2SAT 91–97
[2023-08-02 04:39] LABS: Basophils Percent Auto 0.2 % (0.2-1.2); Eosinophils Absolute Auto 0.3 K/mm3 (0-0.3); Eosinophils Percent Auto 3.6 % (0-4.4); Hematocrit 39.1 % (42.0-52.0); Hemoglobin 13.2 g/dL (14.0-18.0); Immature Granulocyte Absolute 0.02 K/mm3 (0.00-0.031); Immature Granulocyte Percent A 0.2 % (0-0.5); Lymphocytes Absolute Auto 1.45 K/mm3 (0.9-3.2); Lymphocytes Percent Auto 16.3 % (18.3-44.2); Mean Corpuscular HGB Conc 33.8 g/dl (32-36); Mean Corpuscular Hemoglobin 32.2 pg (26-34); Mean Corpuscular Volume 95.4 fl (80-100); Mean Platelet Volume 10.8 fl (7.4-10.4); Monocytes Absolute Auto 0.6 K/mm3 (0.1-0.6); Monocytes Percent Auto 6.6 % (2.6-8.5); Neutrophils Absolute Auto 6.5 K/mm3 (1.3-6.7); Neutrophils Percent Auto 73.1 % (45.5-73.1); Platelet Count Result 131 k/mm3 (150-375); Red Cell Distribution Width 12.6 % (11.5-14.5); White Blood Count 8.9 K/mm3 (4.5-10.0)
[2023-08-02 04:52] LABS: Alanine Aminotransferase 10 U/L (6-50); Albumin Level 3.6 g/dL (3.5-5.1); Alkaline Phosphatase 69 U/L (38-126); Anion Gap 5 mmol/L (4-12); Aspartate Amino Transferase 19 U/L (17-59); Bilirubin,Total 0.7 mg/dL (0.2-1.3); Blood Urea Nitrogen 17 mg/dL (9-20); Calcium 8.7 mg/dL (8.4-10.2); Carbon Dioxide 29 mmol/L (22-30); Chloride 102 mmol/L (98-107); Estimated CRCL calculation 80 ml/min; Estimated Glomerular Filt Rate > 60; Glucose 119 mg/dL (65-110); Potassium 3.3 mmol/L (3.4-5.0); Sodium 136 mmol/L (137-145)
[2023-08-02] MEDS: FLUTICASONE/SALMETEROL 45-21 MCG INHALER 1 PUFF 2 PUFF INHALATION ×2 (09:36→20:54)
[2023-08-02] MEDS: POTASSIUM CHLORIDE 20 MEQ ER TABLET 40 MEQ PO (09:45)
[2023-08-02] MEDS: NITROFURANTOIN MONOHYD MACROCR 100 MG CAP PO ×2 (09:49→20:42)
[2023-08-02] MEDS: ASPIRIN 81 MG ENTERIC TABLET PO (09:55)
[2023-08-02] MEDS: FOLIC ACID 1 MG TABLET PO (09:55)
[2023-08-02] MEDS: TERAZOSIN HCL 5 MG CAPSULE 10 MG PO (09:55)
[2023-08-02] MEDS: TAMSULOSIN HCL 0.4 MG CAPSULE PO (09:56)
[2023-08-02] MEDS: PANTOPRAZOLE 40 MG TABLET PO (09:57)
[2023-08-02] MEDS: FUROSEMIDE INJ 40 MG/4 ML VIAL IV PUSH (09:57)
[2023-08-02] MEDS: SENNOSIDES 8.6 MG TABLET PO ×2 (09:57→19:27)
[2023-08-02] MEDS: ACIDOPHILUS/BULGARICUS CHEWABLE TABLET 1 TABLET PO ×2 (09:57→19:27)
[2023-08-02] MEDS: AZITHROMYCIN 500 MG/NS 250 ML 500 MG/250 ML BAG 250 MG IVPB (09:58)
[2023-08-02] MEDS: cefTRIAXone 2 GM/NS 100 ML 2 GM/100 ML BAG IVPB (09:59)
--- NOTE | 2023-08-02 11:00 | PM.PNCARD ---
Progress Note: A&P Assessment and Plan (1) Atrial fibrillation: Code(s): I48.91 - Unspecified atrial fibrillation Status: Chronic Plan 73-year-old man with: Chronic atrial fibrillation being managed with metoprolol for rate control. He is without cardiovascular complaints today his rate is well controlled no need to adjust his metoprolol treatment. Will continue to follow his telemetry with you while he is in the hospital. Echocardiogram yesterday demonstrates very good left ventricular systolic function and no significant valvular dysfunction. Donavan Monahan MD [facility] Subjective Date/time seen: Date of service: 08/02/23 11:00 Interval history: Follow-up visit on this 73-year-old man with: Chronic atrial fibrillation with patient being managed with metoprolol for heart rate control. As stated in consultation note he is not a candidate for systemic anticoagulation. Patient has no cardiovascular complaints this morning he is lying flat in bed there is a sitter in the room with him because of his dementia. Heart rate is well controlled by telemetry. Exam Const: General: comfortable and no acute distress HENMT: Face/Nose/Sinus: Normal nares present Mouth: Yes moist mucous membranes Eyes: Sclera: sclerae normal Neck: Neck: supple and no JVD Resp: Effort & Inspection: normal respiratory effort Auscultation: clear to auscultation bilaterally Cardio: Other: Irregularly irregular GI: GI Palp: Yes Soft to palpation Auscultation: normal bowel sounds Skin: General skin exam: normal color Neuro: Other: Alert and responsive Extrem: Other: Good perfusion, no edema Objective Data Vital Signs Vital Signs: Vital Signs - 24 hr 08/01/23 11:37 08/01/23 12:00 08/01/23 12:00 Temperature 36.9 C Pulse Rate 95 90 95 Respiratory Rate 20 20 Blood Pressure 121/79 Pulse Oximetry 96 96 Oxygen Delivery Nasal Cannula Oxygen Flow Rate 2 Fraction of Inspired Oxygen 28 08/01/23 13:41 08/01/23 14:10 08/01/23 14:00 Temperature 36.7 C Pulse Rate 103 H Respiratory Rate 24 H Blood Pressure 133/76 Pulse Oximetry 99 95 98 Oxygen Delivery Nasal Cannula Room Air Oxygen Flow Rate 2 Fraction of Inspired Oxygen 28 08/01/23 16:05 08/01/23 16:00 08/01/23 16:00 Temperature 36.8 C Pulse Rate 92 90 92 Respiratory Rate 20 20 Blood Pressure 103/76 Pulse Oximetry 97 97 Oxygen Delivery Room Air Oxygen Flow Rate Fraction of Inspired Oxygen 21 08/01/23 17:55 08/01/23 18:00 08/01/23 19:40 Temperature 36.4 C L Pulse Rate 92 96 Respiratory Rate 16 Blood Pressure 118/73 Pulse Oximetry 95 98 Oxygen Delivery Nasal Cannula Oxygen Flow Rate 1 Fraction of Inspired Oxygen 08/01/23 19:57 08/01/23 19:58 08/01/23 20:00 Temperature 36.3 C L Pulse Rate 95 95 100 Respiratory Rate 16 16 Blood Pressure 113/66 Pulse Oximetry 97 97 Oxygen Delivery Nasal Cannula Oxygen Flow Rate 2 Fraction of Inspired Oxygen 08/01/23 20:48 08/01/23 23:55 08/01/23 22:00 Temperature 36.3 C L Pulse Rate 95 91 78 Respiratory Rate 16 Blood Pressure 108/77 Pulse Oximetry 95 Oxygen Delivery Oxygen Flow Rate Fraction of Inspired Oxygen 08/02/23 00:00 08/02/23 00:25 08/02/23 02:00 Temperature Pulse Rate 86 86 89 Respiratory Rate 16 Blood Pressure Pulse Oximetry 95 Oxygen Delivery Room Air Oxygen Flow Rate Fraction of Inspired Oxygen 08/02/23 04:00 08/02/23 04:00 08/02/23 04:00 Temperature 36.8 C Pulse Rate 90 104 H 93 Respiratory Rate 16 18 Blood Pressure 130/80 Pulse Oximetry 93 92 Oxygen Delivery Room Air Oxygen Flow Rate Fraction of Inspired Oxygen 08/02/23 06:00 08/02/23 08:00 08/02/23 09:39 Temperature 36.3 C L Pulse Rate 100 104 H Respiratory Rate 18 Blood Pressure 118/71 Pulse Oximetry 91 91 Oxygen Delivery Room Air Oxygen Flow Rate Fracti
--- NOTE | 2023-08-02 11:30 | PCPTNOTE ---
Attempted to see patient for Physical Therapy this AM. Patient was sleeping and then his lunch came. The sitter in the room reports that patient was pretty wore out from OT earlier in the morning. She reports that he fell asleep as soon as he was done with OT. RN notified.
[2023-08-02] MEDS: METOPROLOL TARTRATE 50 MG TAB 100 MG PO ×2 (11:51→20:41)
--- NOTE | 2023-08-02 14:46 | P.PNIM_ITS ---
Progress Note: A&P Assessment and Plan (1) UTI (urinary tract infection): Qualifiers: Hematuria presence: without hematuria Urinary tract infection type: site unspecified Qualified Code(s): N39.0 - Urinary tract infection, site not specified Code(s): N39.0 - Urinary tract infection, site not specified Status: Acute Assessment and Plan: * U/A concerning for UTI * transitioned to PO Macrobid * urine culture showed E.coli * blood culture pending (2) Altered mental status: Qualifiers: Altered mental status type: unspecified Qualified Code(s): R41.82 - Altered mental status, unspecified Code(s): R41.82 - Altered mental status, unspecified Status: Acute Assessment and Plan: * patient required cross cover overnight on 07/30 due to increased HR, respiratory distress * patient now unwilling to answer questions or respond, arouses easily but is not his baseline behavior * previous CT head r/o acute stroke--shows 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, mild nonspecific cerebral white matter disease likely representing chronic small-vessel ischemia * Urine drug screen negative * Vitamin B12, folate, TSH, Ammonia * PT/OT * fall precautions * repeat CT head today negative for acute changes (3) Essential hypertension: Code(s): I10 - Essential (primary) hypertension Status: Chronic Assessment and Plan: On home agents amlodipine, losartan, and metoprolol * hydralazine 10 mg IVP Q 8 hours for SBP > 170 mm hg * May need adjustment of home medications (4) COPD (chronic obstructive pulmonary disease): Qualifiers: COPD type: unspecified COPD Qualified Code(s): J44.9 - Chronic obstructive pulmonary disease, unspecified Code(s): J44.9 - Chronic obstructive pulmonary disease, unspecified Status: Chronic Assessment and Plan: * Continue albuterol prn for SOB with caution due to tachycardia overnight * continue fluticasone/salmeterol * now on RA * CXR showed basilar pulmonary edema/atelectasis versus pneumonia. Correlate clinically. Probable mild central congestive change. * ABG showed pCO2 32.7, pO2 67 with O2 sat 94.3 * IV lasix BID given, will continue to monitor * CTA done today showed no PE, Right lower lobe airspace consolidation. Correlate for pneumonia versus atelectasis. Probable mild subpleural reticulation the lungs. Minimal pericardial effusion. (5) Chronic alcohol use: Code(s): Z72.89 - Other problems related to lifestyle Status: Chronic Assessment and Plan: CIWA * add on ethanol was < 10 (6) CHF (congestive heart failure): Qualifiers: Heart failure type: systolic Heart failure chronicity: chronic Qualified Code(s): I50.22 - Chronic systolic (congestive) heart failure Code(s): I50.9 - Heart failure, unspecified Status: Chronic Assessment and Plan: * cardiology consulted after afib and tachycardic event overnight, appreciate recs * ECHO ordered * trops normal * evidence of fluid on exam and imaging * Lasix BID PO * CTA negative for PE, showed minimal pericardial effusion (7) Atrial fibrillation: Code(s): I48.91 - Unspecified atrial fibrillation Status: Chronic Assessment and Plan: * patient s/p diltiazem drip since tachycardia with afib overnight * continue PO metoprolol * cardiology consulted * not currently a candidate for anticoagulation given falls * continue aspirin * tele monitoring (8) Pneumonia: Code(s):
--- NOTE | 2023-08-02 14:46 | PM.IMPN ---
Progress Note: A&P Assessment and Plan (1) UTI (urinary tract infection): Qualifiers: Hematuria presence: without hematuria Urinary tract infection type: site unspecified Qualified Code(s): N39.0 - Urinary tract infection, site not specified Code(s): N39.0 - Urinary tract infection, site not specified Status: Acute Assessment and Plan: U/A concerning for UTI transitioned to PO Macrobid urine culture showed E.coli blood culture pending (2) Altered mental status: Qualifiers: Altered mental status type: unspecified Qualified Code(s): R41.82 - Altered mental status, unspecified Code(s): R41.82 - Altered mental status, unspecified Status: Acute Assessment and Plan: patient required cross cover overnight on 07/30 due to increased HR, respiratory distress patient now unwilling to answer questions or respond, arouses easily but is not his baseline behavior previous CT head r/o acute stroke--shows 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, mild nonspecific cerebral white matter disease likely representing chronic small-vessel ischemia Urine drug screen negative Vitamin B12, folate, TSH, Ammonia PT/OT fall precautions repeat CT head today negative for acute changes (3) Essential hypertension: Code(s): I10 - Essential (primary) hypertension Status: Chronic Assessment and Plan: On home agents amlodipine, losartan, and metoprolol hydralazine 10 mg IVP Q 8 hours for SBP > 170 mm hg May need adjustment of home medications (4) COPD (chronic obstructive pulmonary disease): Qualifiers: COPD type: unspecified COPD Qualified Code(s): J44.9 - Chronic obstructive pulmonary disease, unspecified Code(s): J44.9 - Chronic obstructive pulmonary disease, unspecified Status: Chronic Assessment and Plan: Continue albuterol prn for SOB with caution due to tachycardia overnight continue fluticasone/salmeterol now on RA CXR showed basilar pulmonary edema/atelectasis versus pneumonia. Correlate clinically. Probable mild central congestive change. ABG showed pCO2 32.7, pO2 67 with O2 sat 94.3 IV lasix BID given, will continue to monitor CTA done today showed no PE, Right lower lobe airspace consolidation. Correlate for pneumonia versus atelectasis. Probable mild subpleural reticulation the lungs. Minimal pericardial effusion. (5) Chronic alcohol use: Code(s): Z72.89 - Other problems related to lifestyle Status: Chronic Assessment and Plan: CIWA add on ethanol was < 10 (6) CHF (congestive heart failure): Qualifiers: Heart failure type: systolic Heart failure chronicity: chronic Qualified Code(s): I50.22 - Chronic systolic (congestive) heart failure Code(s): I50.9 - Heart failure, unspecified Status: Chronic Assessment and Plan: cardiology consulted after afib and tachycardic event overnight, appreciate recs ECHO ordered trops normal evidence of fluid on exam and imaging Lasix BID PO CTA negative for PE, showed minimal pericardial effusion (7) Atrial fibrillation: Code(s): I48.91 - Unspecified atrial fibrillation Status: Chronic Assessment and Plan: patient s/p diltiazem drip since tachycardia with afib overnight continue PO metoprolol cardiology consulted not currently a candidate for anticoagulation given falls continue aspirin tele monitoring (8) Pneumonia: Code(s): J18.9 - Pneumonia, unspecified organism Status: Acute Assessment and Plan: as evidenced on CXR, CTA transition to PO cefdinir and azithromycin today WBC 8.9 today back on room air scheduled breathing treatments, will caution with albuterol Subjective Date/time seen: 08/02/23 14:46 Interval history: This is a 73 year old male with PMH significant for alcohol abuse, A-Fib, CHF, COPD, anemia, dementia, hypertension
--- NOTE | 2023-08-02 16:08 | PDONCCN ---
HPI - Date of Consult Date/Time: 08/02/23 16:08 Requesting Physician: Devin Villanueva MD Primary Care Provider: Jean-Claude Crawford MD - Consult Narrative Reason for consult: Thyroid mass Narrative: Lloyd Redman is a 73 year old male with history of atrial fibrillation, congestive heart failure, COPD, dementia, hypertension who is the shelter resident brought into the hospital with mental status changes when he was found unresponsive and incontinent of urine. Patient is not able to give history as he is hard of hearing and does not understand my questions. History was obtained by the chart review. Patient had CT brain performed due to mental status changes on July 27 that showed old infarction involving bilateral basal ganglia. CT scan for PE protocol showed no pulmonary embolism but there was thyroid nodule. Thyroid ultrasound showed 5.6 cm right thyroid nodule and ultrasound-guided biopsy was recommended and performed on July 31. Initial pathology showed benign finding with benign follicular cells. He denies any previous history of malignancy. Review of Systems - Review of Systems All systems reviewed & are unremarkable except as noted in HPI and bel - Neurologic Reports system reviewed and no additional complaints, except as documented PMFSH Medical History: Medical History (Last Reviewed 08/01/23 @ 10:17 by Trey Moore MD) Acute cholecystitis 07/2019 treated with antibiotic therapy, no cholecystectomy due to being a poor surgical candidate. 10/08/2019 - returned to hospital with intra-abdominal abscess in the gallbladder fossa and extending around liver - thought to be related to gallbladder perforation. Treated with antibiotics and percutaneous drainage x 3. Alcohol abuse Anxiety Atrial fibrillation BPH (benign prostatic hyperplasia) CHF (congestive heart failure) Echocardiogram on 10/20/19 showing EF 55-60% with variable contractility due to atrial fibrillation. Aortic valve sclerosis without hemodynamically significant stenosis by Doppler. Trace TR, moderate pulmonary hypertension. Small circumferential pericardial effusion. Choledocholithiasis Chronic anemia COPD (chronic obstructive pulmonary disease) Dementia Essential hypertension GERD (gastroesophageal reflux disease) Histoplasmosis Retinal histoplasmosis and very poor vision History of BPH History of TIAs Hyperlipidemia Vitamin D deficiency Surgical History: Surgical History (Last Reviewed 08/01/23 @ 10:17 by Trey Moore MD) History of bilateral cataract extraction History of cholecystectomy History of vasectomy Male circumcision S/P cholecystectomy Family History: Family History (Last Reviewed 08/01/23 @ 10:17 by Trey Moore MD) Sibling Polio Father Lung cancer Mother Hypertension - Social History Social History: Social History (Last Reviewed 08/01/23 @ 10:17 by Trey Moore MD) Gender Identity: Gender identity (if verbalized by the patient): Male Sexual Orientation: Sexual Orientation (if Verbalized by the Patient): Straight or Heterosexual Alcohol Use: Alcohol intake: former Drinks per week: 21 Substance Use: Substance use: never Substance use type: does not use Other substance usage details: Last drink was 2 years ago. Last use: 1971 Others: Spiritual care concerns: No Agree to blood products: Yes Living Arrangements: Living arrangements: shelter Oppucation/Education: Occupation/Education: retired Smoking Status: Smoking status: Former smoker Tobacco type: cigarettes Second hand tobacco smoke exposure: Yes Smoking end date: 10/08/19 Smoking Pack-years: Smoking packs per day: 1 Smoking cigarettes per day: 20.0 Years smoked: 64 Smoking pack-years: 64.00 Social Determinants of Health: Do You Feel Safe in your Home?: Yes Has the Lack of Transportation Kept
[2023-08-02] MEDS: FUROSEMIDE 40 MG TABLET PO (19:27)
[2023-08-02] MEDS: CEFDINIR 300 MG CAPSULE PO (20:42)
[2023-08-02] MEDS: ATORVASTATIN 10 MG TABLET PO (20:42)
[2023-08-03] VITALS (17 sets, daily range): BP systolic 94–131; BP diastolic 58–93; PULSE 78–106; RESP 12–22; TEMP 35.8–36.6; O2SAT 90–98
[2023-08-03 04:52] LABS: Basophils Percent Auto 0.4 % (0.2-1.2); Eosinophils Absolute Auto 0.4 K/mm3 (0-0.3); Eosinophils Percent Auto 4.8 % (0-4.4); Hematocrit 39.7 % (42.0-52.0); Hemoglobin 13.5 g/dL (14.0-18.0); Immature Granulocyte Absolute 0.03 K/mm3 (0.00-0.031); Immature Granulocyte Percent A 0.4 % (0-0.5); Lymphocytes Absolute Auto 1.39 K/mm3 (0.9-3.2); Lymphocytes Percent Auto 17.5 % (18.3-44.2); Mean Corpuscular Volume 94.1 fl (80-100); Mean Platelet Volume 10.8 fl (7.4-10.4); Monocytes Absolute Auto 0.5 K/mm3 (0.1-0.6); Monocytes Percent Auto 6.5 % (2.6-8.5); Neutrophils Absolute Auto 5.6 K/mm3 (1.3-6.7); Neutrophils Percent Auto 70.4 % (45.5-73.1); Platelet Count Result 135 k/mm3 (150-375); Red Blood Count 4.22 M/mm3 (4.6-6.20); Red Cell Distribution Width 12.4 % (11.5-14.5)
[2023-08-03 05:03] LABS: Anion Gap 3 mmol/L (4-12); Blood Urea Nitrogen 15 mg/dL (9-20); Calcium 8.8 mg/dL (8.4-10.2); Carbon Dioxide 32 mmol/L (22-30); Chloride 102 mmol/L (98-107); Estimated CRCL calculation 80 ml/min; Estimated Glomerular Filt Rate > 60; Glucose 113 mg/dL (65-110); Potassium 3.2 mmol/L (3.4-5.0); Sodium 137 mmol/L (137-145)
[2023-08-03] MEDS: FLUTICASONE/SALMETEROL 45-21 MCG INHALER 1 PUFF 2 PUFF INHALATION ×2 (08:40→20:15)
--- NOTE | 2023-08-03 08:57 | P.PNIM_ITS ---
Progress Note: A&P Assessment and Plan (1) UTI (urinary tract infection): Qualifiers: Hematuria presence: without hematuria Urinary tract infection type: site unspecified Qualified Code(s): N39.0 - Urinary tract infection, site not specified Code(s): N39.0 - Urinary tract infection, site not specified Status: Acute Assessment and Plan: * U/A concerning for UTI * transitioned to PO Macrobid * urine culture showed E.coli * blood culture pending (2) Altered mental status: Qualifiers: Altered mental status type: unspecified Qualified Code(s): R41.82 - Altered mental status, unspecified Code(s): R41.82 - Altered mental status, unspecified Status: Acute Assessment and Plan: * patient now unwilling to answer questions or respond, arouses easily but is not his baseline behavior * previous CT head r/o acute stroke--shows 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, mild nonspecific cerebral white matter disease likely representing chronic small-vessel ischemia * Urine drug screen negative * Vitamin B12, folate, TSH, Ammonia * PT/OT * fall precautions * repeat CT head today negative for acute changes (3) Essential hypertension: Code(s): I10 - Essential (primary) hypertension Status: Chronic Assessment and Plan: On home agents amlodipine, losartan, and metoprolol * hydralazine 10 mg IVP Q 8 hours for SBP > 170 mm hg * May need adjustment of home medications (4) COPD (chronic obstructive pulmonary disease): Qualifiers: COPD type: unspecified COPD Qualified Code(s): J44.9 - Chronic obstructive pulmonary disease, unspecified Code(s): J44.9 - Chronic obstructive pulmonary disease, unspecified Status: Chronic Assessment and Plan: * Continue albuterol prn for SOB with caution due to tachycardia overnight * continue fluticasone/salmeterol * now on RA * CXR showed basilar pulmonary edema/atelectasis versus pneumonia. Correlate clinically. Probable mild central congestive change. * ABG showed pCO2 32.7, pO2 67 with O2 sat 94.3 * IV lasix BID given, will continue to monitor * CTA done today showed no PE, Right lower lobe airspace consolidation. Correlate for pneumonia versus atelectasis. Probable mild subpleural reticulation the lungs. Minimal pericardial effusion. (5) Chronic alcohol use: Code(s): Z72.89 - Other problems related to lifestyle Status: Chronic Assessment and Plan: CIWA * add on ethanol was < 10 (6) CHF (congestive heart failure): Qualifiers: Heart failure chronicity: chronic Heart failure type: systolic Qualified Code(s): I50.22 - Chronic systolic (congestive) heart failure Code(s): I50.9 - Heart failure, unspecified Status: Chronic Assessment and Plan: * cardiology consulted after afib and tachycardic event overnight, appreciate recs * ECHO ordered * trops normal * evidence of fluid on exam and imaging * Lasix BID PO * CTA negative for PE, showed minimal pericardial effusion (7) Atrial fibrillation: Code(s): I48.91 - Unspecified atrial fibrillation Status: Chronic Assessment and Plan: * patient s/p diltiazem drip since tachycardia with afib overnight * continue PO metoprolol * cardiology consulted * not currently a candidate for anticoagulation given falls * continue aspirin * tele monitoring (8) Pneumonia: Code(s): J18.9 - Pneumonia, unspecified organism Status: Acute Assessment and Pl
--- NOTE | 2023-08-03 08:57 | PM.IMPN ---
Progress Note: A&P Assessment and Plan (1) UTI (urinary tract infection): Qualifiers: Hematuria presence: without hematuria Urinary tract infection type: site unspecified Qualified Code(s): N39.0 - Urinary tract infection, site not specified Code(s): N39.0 - Urinary tract infection, site not specified Status: Acute Assessment and Plan: U/A concerning for UTI transitioned to PO Macrobid urine culture showed E.coli blood culture pending (2) Altered mental status: Qualifiers: Altered mental status type: unspecified Qualified Code(s): R41.82 - Altered mental status, unspecified Code(s): R41.82 - Altered mental status, unspecified Status: Acute Assessment and Plan: patient now unwilling to answer questions or respond, arouses easily but is not his baseline behavior previous CT head r/o acute stroke--shows 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, mild nonspecific cerebral white matter disease likely representing chronic small-vessel ischemia Urine drug screen negative Vitamin B12, folate, TSH, Ammonia PT/OT fall precautions repeat CT head today negative for acute changes (3) Essential hypertension: Code(s): I10 - Essential (primary) hypertension Status: Chronic Assessment and Plan: On home agents amlodipine, losartan, and metoprolol hydralazine 10 mg IVP Q 8 hours for SBP > 170 mm hg May need adjustment of home medications (4) COPD (chronic obstructive pulmonary disease): Qualifiers: COPD type: unspecified COPD Qualified Code(s): J44.9 - Chronic obstructive pulmonary disease, unspecified Code(s): J44.9 - Chronic obstructive pulmonary disease, unspecified Status: Chronic Assessment and Plan: Continue albuterol prn for SOB with caution due to tachycardia overnight continue fluticasone/salmeterol now on RA CXR showed basilar pulmonary edema/atelectasis versus pneumonia. Correlate clinically. Probable mild central congestive change. ABG showed pCO2 32.7, pO2 67 with O2 sat 94.3 IV lasix BID given, will continue to monitor CTA done today showed no PE, Right lower lobe airspace consolidation. Correlate for pneumonia versus atelectasis. Probable mild subpleural reticulation the lungs. Minimal pericardial effusion. (5) Chronic alcohol use: Code(s): Z72.89 - Other problems related to lifestyle Status: Chronic Assessment and Plan: CIWA add on ethanol was < 10 (6) CHF (congestive heart failure): Qualifiers: Heart failure chronicity: chronic Heart failure type: systolic Qualified Code(s): I50.22 - Chronic systolic (congestive) heart failure Code(s): I50.9 - Heart failure, unspecified Status: Chronic Assessment and Plan: cardiology consulted after afib and tachycardic event overnight, appreciate recs ECHO ordered trops normal evidence of fluid on exam and imaging Lasix BID PO CTA negative for PE, showed minimal pericardial effusion (7) Atrial fibrillation: Code(s): I48.91 - Unspecified atrial fibrillation Status: Chronic Assessment and Plan: patient s/p diltiazem drip since tachycardia with afib overnight continue PO metoprolol cardiology consulted not currently a candidate for anticoagulation given falls continue aspirin tele monitoring (8) Pneumonia: Code(s): J18.9 - Pneumonia, unspecified organism Status: Acute Assessment and Plan: as evidenced on CXR, CTA transition to PO cefdinir and azithromycin today WBC 8.9 today back on room air scheduled breathing treatments, will caution with albuterol Subjective Date/time seen: 08/03/23 08:57 Interval history: This is a 73 year old male with PMH significant for alcohol abuse, A-Fib, CHF, COPD, anemia, dementia, hypertension, GERD, and BPH. He came from a local long term to be evaluated after being found unr
[2023-08-03] MEDS: TAMSULOSIN HCL 0.4 MG CAPSULE PO (09:36)
[2023-08-03] MEDS: PANTOPRAZOLE 40 MG TABLET PO (09:37)
[2023-08-03] MEDS: NITROFURANTOIN MONOHYD MACROCR 100 MG CAP PO ×2 (09:37→20:31)
[2023-08-03] MEDS: SENNOSIDES 8.6 MG TABLET PO ×2 (09:37→16:53)
[2023-08-03] MEDS: FUROSEMIDE 40 MG TABLET PO ×2 (09:37→16:33)
[2023-08-03] MEDS: AZITHROMYCIN 250 MG TABLET 500 MG PO (09:37)
[2023-08-03] MEDS: amLODIPine BESYLATE 5 MG TABLET PO (09:37)
[2023-08-03] MEDS: CEFDINIR 300 MG CAPSULE PO ×2 (09:37→20:31)
[2023-08-03] MEDS: METOPROLOL TARTRATE 50 MG TAB 100 MG PO ×2 (09:37→20:32)
[2023-08-03] MEDS: FOLIC ACID 1 MG TABLET PO (09:37)
[2023-08-03] MEDS: TERAZOSIN HCL 5 MG CAPSULE 10 MG PO (09:37)
[2023-08-03] MEDS: ASPIRIN 81 MG ENTERIC TABLET PO (09:38)
[2023-08-03] MEDS: ACIDOPHILUS/BULGARICUS CHEWABLE TABLET 1 TABLET PO ×2 (09:38→16:33)
--- NOTE | 2023-08-03 13:43 | PCPTNOTE ---
Attempted, patient confused, will attempt tomorrow.
[2023-08-03] MEDS: POTASSIUM CHLORIDE 20 MEQ ER TABLET 40 MEQ PO (16:33)
[2023-08-03] MEDS: LOSARTAN POTASSIUM 50 MG TABLET PO (20:32)
[2023-08-03] MEDS: ATORVASTATIN 10 MG TABLET PO (20:32)
--- NOTE | 2023-08-03 22:37 | PC.NURSE ---
This patient, Lloyd Redman, was transferred to [[id number] ] on 08/03/23 at 2230. Personal belongings sent with patient. Report given to [Brent NOLASCO ]. Appropriate documentation sent with patient.
[2023-08-04] VITALS (15 sets, daily range): BP systolic 96–142; BP diastolic 67–90; PULSE 78–92; RESP 16–18; TEMP 35.5–36.3; O2SAT 5–98
[2023-08-04] MEDS: ACIDOPHILUS/BULGARICUS CHEWABLE TABLET 1 TABLET PO ×2 (08:37→17:02)
[2023-08-04] MEDS: amLODIPine BESYLATE 5 MG TABLET PO (08:38)
[2023-08-04] MEDS: CEFDINIR 300 MG CAPSULE PO ×2 (08:38→20:56)
[2023-08-04] MEDS: ASPIRIN 81 MG ENTERIC TABLET PO (08:38)
[2023-08-04] MEDS: AZITHROMYCIN 250 MG TABLET 500 MG PO (08:38)
[2023-08-04] MEDS: FOLIC ACID 1 MG TABLET PO (08:38)
[2023-08-04] MEDS: FUROSEMIDE 40 MG TABLET PO ×2 (08:39→17:02)
[2023-08-04] MEDS: METOPROLOL TARTRATE 50 MG TAB 100 MG PO ×2 (08:39→20:56)
[2023-08-04] MEDS: NITROFURANTOIN MONOHYD MACROCR 100 MG CAP PO ×2 (08:39→20:56)
[2023-08-04] MEDS: PANTOPRAZOLE 40 MG TABLET PO (08:39)
[2023-08-04] MEDS: TAMSULOSIN HCL 0.4 MG CAPSULE PO (08:40)
[2023-08-04] MEDS: TERAZOSIN HCL 5 MG CAPSULE 10 MG PO (08:40)
[2023-08-04] MEDS: SENNOSIDES 8.6 MG TABLET PO ×2 (08:40→17:02)
[2023-08-04 09:24] LABS: Basophils Percent Auto 0.5 % (0.2-1.2); Eosinophils Absolute Auto 0.4 K/mm3 (0-0.3); Eosinophils Percent Auto 5.7 % (0-4.4); Hematocrit 39.6 % (42.0-52.0); Hemoglobin 13.5 g/dL (14.0-18.0); Immature Granulocyte Absolute 0.03 K/mm3 (0.00-0.031); Immature Granulocyte Percent A 0.4 % (0-0.5); Lymphocytes Absolute Auto 1.48 K/mm3 (0.9-3.2); Lymphocytes Percent Auto 19.1 % (18.3-44.2); Mean Corpuscular HGB Conc 34.1 g/dl (32-36); Mean Corpuscular Hemoglobin 32.4 pg (26-34); Mean Platelet Volume 10.3 fl (7.4-10.4); Monocytes Absolute Auto 0.6 K/mm3 (0.1-0.6); Monocytes Percent Auto 7.2 % (2.6-8.5); Neutrophils Absolute Auto 5.2 K/mm3 (1.3-6.7); Neutrophils Percent Auto 67.1 % (45.5-73.1); Platelet Count Result 143 k/mm3 (150-375); Red Blood Count 4.17 M/mm3 (4.6-6.20); Red Cell Distribution Width 12.3 % (11.5-14.5); White Blood Count 7.7 K/mm3 (4.5-10.0)
[2023-08-04] MEDS: FLUTICASONE/SALMETEROL 45-21 MCG INHALER 1 PUFF 2 PUFF INHALATION ×2 (09:36→21:06)
[2023-08-04 09:37] LABS: Alanine Aminotransferase 11 U/L (6-50); Albumin Level 3.6 g/dL (3.5-5.1); Alkaline Phosphatase 75 U/L (38-126); Anion Gap 5 mmol/L (4-12); Aspartate Amino Transferase 15 U/L (17-59); Bilirubin,Total 0.7 mg/dL (0.2-1.3); Blood Urea Nitrogen 18 mg/dL (9-20); Calcium 9.1 mg/dL (8.4-10.2); Carbon Dioxide 32 mmol/L (22-30); Chloride 103 mmol/L (98-107); Estimated CRCL calculation 71 ml/min; Estimated Glomerular Filt Rate > 60; Glucose 133 mg/dL (65-110); Potassium 3.7 mmol/L (3.4-5.0); Sodium 140 mmol/L (137-145)
--- NOTE | 2023-08-04 13:52 | P.PNIM_ITS ---
Progress Note: A&P Assessment and Plan (1) UTI (urinary tract infection): Qualifiers: Hematuria presence: without hematuria Urinary tract infection type: site unspecified Qualified Code(s): N39.0 - Urinary tract infection, site not specified Code(s): N39.0 - Urinary tract infection, site not specified Status: Acute Assessment and Plan: * U/A concerning for UTI * continue PO Macrobid * urine culture showed E.coli * blood culture pending (2) Altered mental status: Qualifiers: Altered mental status type: unspecified Qualified Code(s): R41.82 - Altered mental status, unspecified Code(s): R41.82 - Altered mental status, unspecified Status: Acute Assessment and Plan: * Patient denies any complaints at this time, he is A&O x2 * previous CT head r/o acute stroke--shows old infarcts in bilateral basal ga nglia, mild nonspecific cerebral white matter disease likely representing chronic small-vessel ischemia * Urine drug screen negative * Vitamin B12, folate, TSH, Ammonia all wnl * continue PT/OT * fall precautions * recheck urine, b (3) Essential hypertension: Code(s): I10 - Essential (primary) hypertension Status: Chronic Assessment and Plan: On home agents amlodipine, losartan, and metoprolol * hydralazine 10 mg IVP Q 8 hours for SBP > 170 mm hg * May need adjustment of home medications (4) COPD (chronic obstructive pulmonary disease): Qualifiers: COPD type: unspecified COPD Qualified Code(s): J44.9 - Chronic obstructive pulmonary disease, unspecified Code(s): J44.9 - Chronic obstructive pulmonary disease, unspecified Status: Chronic Assessment and Plan: * Continue albuterol prn for SOB with caution due to tachycardia overnight * continue fluticasone/salmeterol * now on RA * CXR showed basilar pulmonary edema/atelectasis versus pneumonia. Correlate clinically. Probable mild central congestive change. * ABG showed pCO2 32.7, pO2 67 with O2 sat 94.3 * IV lasix BID given, will continue to monitor * CTA done today showed no PE, Right lower lobe airspace consolidation. Correlate for pneumonia versus atelectasis. Probable mild subpleural reticulation the lungs. Minimal pericardial effusion. (5) Chronic alcohol use: Code(s): Z72.89 - Other problems related to lifestyle Status: Chronic Assessment and Plan: CIWA * add on ethanol was < 10 (6) CHF (congestive heart failure): Qualifiers: Heart failure type: systolic Heart failure chronicity: chronic Qualified Code(s): I50.22 - Chronic systolic (congestive) heart failure Code(s): I50.9 - Heart failure, unspecified Status: Chronic Assessment and Plan: * cardiology consulted after afib and tachycardic event overnight, appreciate recs * ECHO ordered * trops normal * evidence of fluid on exam and imaging * Lasix BID PO * CTA negative for PE, showed minimal pericardial effusion (7) Atrial fibrillation: Code(s): I48.91 - Unspecified atrial fibrillation Status: Chronic Assessment and Plan: * patient s/p diltiazem drip since tachycardia with afib overnight * continue PO metoprolol * cardiology consulted * not currently a candidate for anticoagulation given falls * continue aspirin * tele monitoring (8) Pneumonia: Code(s): J18.9 - Pneumonia, unspecified organism Status: Acute Assessment and Plan: * as evidenced on CXR, CTA * transition to PO cefdinir a
--- NOTE | 2023-08-04 13:52 | PM.IMPN ---
Progress Note: A&P Assessment and Plan (1) UTI (urinary tract infection): Qualifiers: Hematuria presence: without hematuria Urinary tract infection type: site unspecified Qualified Code(s): N39.0 - Urinary tract infection, site not specified Code(s): N39.0 - Urinary tract infection, site not specified Status: Acute Assessment and Plan: U/A concerning for UTI continue PO Macrobid urine culture showed E.coli blood culture pending (2) Altered mental status: Qualifiers: Altered mental status type: unspecified Qualified Code(s): R41.82 - Altered mental status, unspecified Code(s): R41.82 - Altered mental status, unspecified Status: Acute Assessment and Plan: Patient denies any complaints at this time, he is A&O x2 previous CT head r/o acute stroke--shows 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, mild nonspecific cerebral white matter disease likely representing chronic small-vessel ischemia Urine drug screen negative Vitamin B12, folate, TSH, Ammonia all wnl continue PT/OT fall precautions recheck urine, b (3) Essential hypertension: Code(s): I10 - Essential (primary) hypertension Status: Chronic Assessment and Plan: On home agents amlodipine, losartan, and metoprolol hydralazine 10 mg IVP Q 8 hours for SBP > 170 mm hg May need adjustment of home medications (4) COPD (chronic obstructive pulmonary disease): Qualifiers: COPD type: unspecified COPD Qualified Code(s): J44.9 - Chronic obstructive pulmonary disease, unspecified Code(s): J44.9 - Chronic obstructive pulmonary disease, unspecified Status: Chronic Assessment and Plan: Continue albuterol prn for SOB with caution due to tachycardia overnight continue fluticasone/salmeterol now on RA CXR showed basilar pulmonary edema/atelectasis versus pneumonia. Correlate clinically. Probable mild central congestive change. ABG showed pCO2 32.7, pO2 67 with O2 sat 94.3 IV lasix BID given, will continue to monitor CTA done today showed no PE, Right lower lobe airspace consolidation. Correlate for pneumonia versus atelectasis. Probable mild subpleural reticulation the lungs. Minimal pericardial effusion. (5) Chronic alcohol use: Code(s): Z72.89 - Other problems related to lifestyle Status: Chronic Assessment and Plan: CIWA add on ethanol was < 10 (6) CHF (congestive heart failure): Qualifiers: Heart failure type: systolic Heart failure chronicity: chronic Qualified Code(s): I50.22 - Chronic systolic (congestive) heart failure Code(s): I50.9 - Heart failure, unspecified Status: Chronic Assessment and Plan: cardiology consulted after afib and tachycardic event overnight, appreciate recs ECHO ordered trops normal evidence of fluid on exam and imaging Lasix BID PO CTA negative for PE, showed minimal pericardial effusion (7) Atrial fibrillation: Code(s): I48.91 - Unspecified atrial fibrillation Status: Chronic Assessment and Plan: patient s/p diltiazem drip since tachycardia with afib overnight continue PO metoprolol cardiology consulted not currently a candidate for anticoagulation given falls continue aspirin tele monitoring (8) Pneumonia: Code(s): J18.9 - Pneumonia, unspecified organism Status: Acute Assessment and Plan: as evidenced on CXR, CTA transition to PO cefdinir and azithromycin today WBC 7.7 on room air scheduled breathing treatments, will caution with albuterol Subjective Date/time seen: 08/04/23 13:52 Interval history: Pt awake in no acute distress, sitting up in chair he was downgraded from IMU to tele, he is still poor historian,unable to provide any HPI, He denies any c/o at this time. Thyroid biopsy 07/31 and TSH specimen looks to be benign. continue P.O. Lasix, will order PRN breathing
[2023-08-04 15:42] LABS: Appearance Urine Clear (Clear); Bilirubin Urine Negative (Negative); Blood Urine Negative (Negative); Color Urine Yellow (Yellow); Glucose Urine UA Negative (Negative); Ketones Urine Negative (Negative); Leukocyte Esterase Ur Negative LEU/UL (Negative); Nitrate Urine Negative (Negative); Protein Urine Negative (Negative); Specific Grav Ur 1.008 (1.001-1.035); Urobilinogen Urine 0.2 mg/dL (<2.0); pH Urine 7.5 (5.0-9.0)
[2023-08-04 15:59] LABS: Add Urine Microscopic? NO
--- NOTE | 2023-08-04 16:24 | PM.DS ---
DS: Admitting Diagnosis Discharge Date 08/04/2023 Admitting Diagnosis UTI DS: Discharge Diagnosis Discharge Diagnosis (1) Recurrent falls: Code(s): R29.6 - Repeated falls Status: Acute DS: Summary Time Spent with Patient Time attestation: Total time spent providing and/or coordinating discharge services: DS: Data Data Completed and Pending Completed studies during hospitalization: Pending at discharge 08/01/23 11:42 Cytology [PTH] Routine Labs on day of discharge: Labs from last 24 hours 08/04/23 08/04/23 15:35 09:16 WBC 7.7 RBC 4.17 L Hgb 13.5 L Hct 39.6 L MCV 95.0 MCH 32.4 MCHC 34.1 RDW 12.3 Plt Count 143 L MPV 10.3 Immature Gran % (Auto) 0.4 Neut % (Auto) 67.1 Lymph % (Auto) 19.1 [place] % (Auto) 7.2 Eos % (Auto) 5.7 H Baso % (Auto) 0.5 Lymph # (Auto) 1.48 [place] # (Auto) 0.6 Eos # (Auto) 0.4 H Baso # (Auto) 0.0 Abs Immat Gran (auto) 0.03 Absolute Neuts (auto) 5.2 Absolute Nucleated RBC 0.000 Nucleated RBC % 0.0 Sodium 140 Potassium 3.7 Chloride 103 Carbon Dioxide 32 H Anion Gap 5 BUN 18 Creatinine 0.90 Estim Creat Clear Calc 71 Estimated GFR > 60 Glucose 133 H Calcium 9.1 Total Bilirubin 0.7 AST 15 L ALT 11 Alkaline Phosphatase 75 Total Protein 6.0 L Albumin 3.6 Urine Color Yellow Urine Appearance Clear Urine pH 7.5 Ur Specific [place] 1.008 Urine Protein Negative Urine Glucose (UA) Negative Urine Ketones Negative Ur Blood (Man) Negative Urine Nitrate Negative Urine Bilirubin Negative Urine Urobilinogen 0.2 Leukocyte Esterase Rfl Negative Preliminary micro results at discharge 08/01/23 05:31 Blood Culture - Preliminary Blood 08/01/23 05:20 Blood Culture - Preliminary Blood Discharge Plan Discharge Attending physician on discharge: Ana Yoder Consulting providers: Nora Puckett; Amish Willis; rTung Ferreira Discharging Clinician: Ana Yoder Anticipated Discharge Date/Time: 08/04/23 16:20 Activity: may shower and as tolerated Diet: as tolerated and diabetic Discharge Instructions: Please follow up closely with your primary care provider within one week after discharge. Please follow-up closely with your help desk analyst as an out-patient as per their recommendations. I have listed the number you can call. -If you experience sudden chest pain, fever>100.9, chills, nausea or vomiting, please return to the emergency room or call 911 in the event of an emergency. Thank you for allowing [facility] Staff to care for you. Your Health is Our mission. Ana Yoder NP Hospitalist Nurse Practitioner? Patient Instructions: Antibiotic Form, Heart Failure (DC) Stand Alone Forms: General Discharge Information, [facility] Discharge Follow-up/Referrals: Jean-Claude Crawford MD [Primary Care Provider] - Trung Ferreira MD [Physician] - Discharge Medications: New nitrofurantoin monohyd/m-cryst [Macrobid] 100 mg capsule 100 mg PO Q12H 3 Days Qty: 6 0RF Rx Instructions: must administer with a meal/food Continued metoprolol tartrate 50 mg tablet 100 mg PO Q12HR sennosides [senna] 8.6 mg tablet 8.6 mg PO BID acetaminophen 325 mg Tablet 650 mg PO Q4H PRN (Reason: Pain (Scale Score 1-3)) albuterol sulfate 2.5 mg /3 mL (0.083 %) Solution For Nebulization 2.5 mg inhalation Q6H PRN (Reason: Wheezing) atorvastatin 10 mg tablet 10 mg PO HS aspirin 81 mg tablet,delayed release (DR/EC) 81 mg PO DAILY omeprazole 20 mg capsule,delayed release(DR/EC) 20 mg PO QAM folic acid 1 mg tablet 1 mg PO QAM nystatin 100,000 unit/gram powder 1 applic TOPICAL Q12H PRN (Reason: reddness) Rx Instructions: apply to groin fluticasone propion-salmeterol [Wixela Inhub] 100-50 mcg/dose Blister With Device 1 ea
--- NOTE | 2023-08-04 18:36 | PC.NURSE ---
Attempted to call [employer] place x 3 for report with no success. Due to concern for safety, inability to contact facility, and confirmation of mode of transportation, plan for discharge tomorrow.
[2023-08-04] MEDS: ACETAMINOPHEN 325 MG TABLET 650 MG PO (20:56)
[2023-08-04] MEDS: LOSARTAN POTASSIUM 50 MG TABLET PO (20:56)
[2023-08-04] MEDS: ATORVASTATIN 10 MG TABLET PO (20:57)
[2023-08-05] VITALS: PULSE 85
[2023-08-05 02:00] VITALS: BP 116/68; PULSE 82; RESP 16; TEMP 36.1; O2SAT 96
[2023-08-05 04:00] VITALS: PULSE 97
[2023-08-05 05:25] VITALS: BP 130/74; PULSE 84; RESP 17; TEMP 35.7; O2SAT 95
[2023-08-05 05:59] LABS: Basophils Absolute Auto 0.1 K/mm3 (0.0-0.1); Basophils Percent Auto 0.9 % (0.2-1.2); Eosinophils Absolute Auto 0.7 K/mm3 (0-0.3); Eosinophils Percent Auto 9.9 % (0-4.4); Hematocrit 38.5 % (42.0-52.0); Hemoglobin 13.1 g/dL (14.0-18.0); Immature Granulocyte Absolute 0.02 K/mm3 (0.00-0.031); Immature Granulocyte Percent A 0.3 % (0-0.5); Lymphocytes Absolute Auto 1.68 K/mm3 (0.9-3.2); Lymphocytes Percent Auto 25.7 % (18.3-44.2); Mean Corpuscular Hemoglobin 32.3 pg (26-34); Mean Corpuscular Volume 95.1 fl (80-100); Monocytes Absolute Auto 0.4 K/mm3 (0.1-0.6); Monocytes Percent Auto 5.8 % (2.6-8.5); Neutrophils Absolute Auto 3.8 K/mm3 (1.3-6.7); Neutrophils Percent Auto 57.4 % (45.5-73.1); Platelet Count Result 164 k/mm3 (150-375); Red Blood Count 4.05 M/mm3 (4.6-6.20); Red Cell Distribution Width 11.9 % (11.5-14.5); White Blood Count 6.5 K/mm3 (4.5-10.0)
[2023-08-05 06:10] LABS: Alanine Aminotransferase 10 U/L (6-50); Albumin Level 3.6 g/dL (3.5-5.1); Alkaline Phosphatase 78 U/L (38-126); Anion Gap 5 mmol/L (4-12); Aspartate Amino Transferase 16 U/L (17-59); Bilirubin,Total 0.6 mg/dL (0.2-1.3); Blood Urea Nitrogen 20 mg/dL (9-20); Calcium 8.9 mg/dL (8.4-10.2); Carbon Dioxide 31 mmol/L (22-30); Chloride 103 mmol/L (98-107); Estimated CRCL calculation 71 ml/min; Estimated Glomerular Filt Rate > 60; Glucose 113 mg/dL (65-110); Potassium 3.5 mmol/L (3.4-5.0); Sodium 139 mmol/L (137-145)
[2023-08-05] MEDS: FLUTICASONE/SALMETEROL 45-21 MCG INHALER 1 PUFF 2 PUFF INHALATION (07:33)
[2023-08-05 07:34] VITALS: O2SAT 93
[2023-08-05] MEDS: PANTOPRAZOLE 40 MG TABLET PO (08:41)
[2023-08-05] MEDS: AZITHROMYCIN 250 MG TABLET 500 MG PO (08:41)
[2023-08-05] MEDS: FOLIC ACID 1 MG TABLET PO (08:41)
[2023-08-05] MEDS: TERAZOSIN HCL 5 MG CAPSULE 10 MG PO (08:41)
[2023-08-05 08:42] VITALS: BP 117/72; PULSE 78; O2SAT 93
[2023-08-05] MEDS: amLODIPine BESYLATE 5 MG TABLET PO (08:42)
[2023-08-05] MEDS: CEFDINIR 300 MG CAPSULE PO (08:42)
[2023-08-05] MEDS: ASPIRIN 81 MG ENTERIC TABLET PO (08:42)
[2023-08-05] MEDS: TAMSULOSIN HCL 0.4 MG CAPSULE PO (08:42)
[2023-08-05] MEDS: METOPROLOL TARTRATE 50 MG TAB 100 MG PO (08:42)
[2023-08-05] MEDS: SENNOSIDES 8.6 MG TABLET PO (08:42)
[2023-08-05] MEDS: ACIDOPHILUS/BULGARICUS CHEWABLE TABLET 1 TABLET PO (08:42)
[2023-08-05] MEDS: FUROSEMIDE 40 MG TABLET PO (08:42)
[2023-08-05] MEDS: NITROFURANTOIN MONOHYD MACROCR 100 MG CAP PO (08:42)
--- NOTE | 2023-08-05 10:13 | PM.DS ---
DS: Admitting Diagnosis Discharge Date 08/05/2023 Admitting Diagnosis Metabolic encephalopathy secondary to UTI/COPD exacerbation/CHF exacerbation DS: Discharge Diagnosis Discharge Diagnosis (1) Recurrent falls: Code(s): R29.6 - Repeated falls Status: Acute (2) Flash pulmonary edema: Code(s): J81.0 - Acute pulmonary edema Status: Acute (3) Acute UTI: Code(s): N39.0 - Urinary tract infection, site not specified Status: Acute (4) COPD exacerbation: Code(s): J44.1 - Chronic obstructive pulmonary disease with (acute) exacerbation Status: Acute (5) CHF (congestive heart failure): Qualifiers: Heart failure chronicity: chronic Heart failure type: systolic Qualified Code(s): I50.22 - Chronic systolic (congestive) heart failure Code(s): I50.9 - Heart failure, unspecified Status: Chronic (6) Afib: Qualifiers: Atrial fibrillation type: unspecified Qualified Code(s): I48.91 - Unspecified atrial fibrillation Code(s): I48.91 - Unspecified atrial fibrillation Status: Acute (7) Pneumonia: Code(s): J18.9 - Pneumonia, unspecified organism Status: Acute Plan Assessment and Plan (1) UTI (urinary tract infection): ?Qualifiers: ?Hematuria presence:?without hematuria??Urinary tract infection type:?site unspecified? Qualified Code(s):?N39.0 - Urinary tract infection, site not specified ?Code(s): N39.0 - Urinary tract infection, site not specified ?Status:?Acute ?Assessment and Plan: U/A concerning for UTI continue? PO Macrobid urine culture showed E.coli blood culture pending(2) Altered mental status: ?Qualifiers: ?Altered mental status type:?unspecified? Qualified Code(s):?R41.82 - Altered mental status, unspecified ?Code(s): R41.82 - Altered mental status, unspecified ?Status:?Acute ?Assessment and Plan: Patient denies any complaints at this time, he is A&O x2 previous CT head r/o acute stroke--shows 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, mild nonspecific cerebral white matter disease likely representing chronic small-vessel ischemia Urine drug screen negative Vitamin B12, folate, TSH, Ammonia all wnl ?continue PT/OT fall precautions recheck urine, b (3) Essential hypertension: ?Code(s): I10 - Essential (primary) hypertension ?Status:?Chronic ?Assessment and Plan: On home agents amlodipine, losartan, and metoprolol hydralazine 10 mg IVP Q 8 hours for SBP > 170 mm hg May need adjustment of home medications (4) COPD (chronic obstructive pulmonary disease): ?Qualifiers: ?COPD type:?unspecified COPD? Qualified Code(s):?J44.9 - Chronic obstructive pulmonary disease, unspecified ?Code(s): J44.9 - Chronic obstructive pulmonary disease, unspecified ?Status:?Chronic ?Assessment and Plan: Continue albuterol prn for SOB with caution due to tachycardia overnight continue fluticasone/salmeterol now on RA CXR showed basilar pulmonary edema/atelectasis versus pneumonia. Correlate clinically. Probable mild central congestive change. ABG showed pCO2 32.7, pO2 67 with O2 sat 94.3 IV lasix BID given, will continue to monitor CTA done today showed no PE, Right lower lobe airspace consolidation. Correlate for pneumonia versus atelectasis. Probable mild subpleural reticulation the lungs. Minimal pericardial effusion. (5) Chronic alcohol use: ?Code(s): Z72.89 - Other problems related to lifestyle ?Status:?Chronic ?Assessment and Plan: [place] add on ethanol was < 10(6) CHF (congestive heart failure): ?Qualifiers: ?Heart failure type:?systolic??Heart failure chronicity:?chronic? Qualified Code(s):?I50.22 - Chronic systolic (congestive) heart failure ?Code(s): I50.9 - Heart failure, unspecified ?Status:?Chronic ?Assessment and Plan: cardiology consulted after afib and tachycardic e
[2023-08-05 15:34] LABS: Thyroglobulin Antibodies <1 IU/mL (< or = 1)
[2023-08-06 15:21] LABS: T3 Free 3.2 pg/mL
== END 2023-08-05 14:38 | DRG 689 ==
LOC: ANHED 15:26 → ANH2MED 19:09 → ANHIMU 08-01 04:29 → ANH2MED 08-03 22:39
PROVIDERS: Emergency Medicine; Internal Medicine; Internal Medicine Hematology & Oncology; Nurse Practitioner; Nurse Practitioner Acute Care; Admitting Provider Internal Medicine; Emergency Provider Nurse Practitioner Family; PCP Family Medicine; Visit Provider Nurse Practitioner Family
DX: N39.0 Urinary tract infection, site not specified (principal); G93.41 Metabolic encephalopathy; J18.9 Pneumonia, unspecified organism; J96.01 Acute respiratory failure with hypoxia; J81.0 Acute pulmonary edema; I50.22 Chronic systolic (congestive) heart failure; I48.20 Chronic atrial fibrillation, unspecified; B96.20 Unspecified Escherichia coli [E. coli] as the cause of diseases classified elsewhere; E87.6 Hypokalemia; F10.20 Alcohol dependence, uncomplicated; R29.6 Repeated falls; W18.39XA Other fall on same level, initial encounter; J44.9 Chronic obstructive pulmonary disease, unspecified; D64.9 Anemia, unspecified; K21.9 Gastro-esophageal reflux disease without esophagitis; N40.0 Benign prostatic hyperplasia without lower urinary tract symptoms; E78.5 Hyperlipidemia, unspecified; R32 Unspecified urinary incontinence; E07.9 Disorder of thyroid, unspecified; I11.0 Hypertensive heart disease with heart failure; E55.9 Vitamin D deficiency, unspecified; F03.90 Unspecified dementia, unspecified severity, without behavioral disturbance, psychotic disturbance, mood disturbance, and anxiety; Z86.73 Personal history of transient ischemic attack (TIA), and cerebral infarction without residual deficits; Z98.42 Cataract extraction status, left eye; Z98.41 Cataract extraction status, right eye; Z90.49 Acquired absence of other specified parts of digestive tract; Z87.891 Personal history of nicotine dependence; Z72.89 Other problems related to lifestyle
CPT/HCPCS: 10005; 36415; 36600; 70450; 70470; 71045; 71046; 71275; 72125; 76536; 80048; 80053; 80307; 81001; 81003; 82140; 82375; 82607; 82746; 82805; 82948; 83050; 83605; 83690; 83735; 84100; 84432; 84439; 84443; 84480; 84484; 85025; 85055; 85380; 86800; 87040; 87077; 87086; 87088; 87186; 88172; 88173; 88305; 93005; 93306; 94640; 97116; 97161; 97165; 97530; 99285; A9270; J0360; J0456; J0696; J1940; J2185; J2270; Q9967

== ENCOUNTER 2023-09-16 12:11 | Emergency (ER) | payer MEDICARE, SELFPAY ==
--- NOTE | ~2023-09-16 | CT_ITS ---
CT soft tissue neck w con Ordering provider: Ana Luisa Lemon MD History: 73 years Male with . left facial swelling . Comparison: July 30, 2023 Technique: CT soft tissues neck was performed with contrast. Radiation reduction technique utilized. Findings: LOWER HEAD: The visualized brain parenchyma, optic globes/orbits and mastoids are normal. Mucosal th ickening of the left maxillary sinus. Otherwise, The visualized paranasal sinuses are well aerated. SALIVARY GLANDS: Minimal fat stranding seen around the left parotid the gland which appears slightly hyperdense compared to the right. Parotiditis is not excluded. Clinical correlation advised. THYROID: Grossly enlarged right lobe of the thyroid suggestive of a mass measuring 3.6 x 3.8 cm. Smal l low-density lesion is seen in the left lobe. SUPRAHYOID DEEP SPACES: Normal. CAROTID ARTERIES: Bilateral carotid calcifications. Mild carotid stenosis in the left side. JUGULAR VEINS: Normal. TONSILS: Normal. ORAL CAVITY: Partially obscured by dental amalgam but normal as visualized. PHARYNX, LARYNX AND TRACHEA: Patent and normal. No prevertebral soft tissue swelling. SUPERFICIAL SOFT TISSUES: Normal. No lymphadenopathy or neck mass. THORACIC INLET/VISUALIZED UPPER CHEST: Normal. SKELETAL: Age appropriate degenerative changes. IMPRESSION: 1. Grossly enlarged right lobe of the thyroid. Ultrasound and Biopsy is advised. Multiple nodules in the left lobe. 2. Minimal fat stranding around the left parotid gland with slightly increased density compared to t he right which is suggestive of the parotiditis. Clinical correlation advised. Reviewed, dictated and finalized at location A. IMPRESSION: 1. Grossly enlarged right lobe of the thyroid. Ultrasound and Biopsy is advise d. Multiple nodules in the left lobe. 2. Minimal fat stranding around the left parotid gland with slightly increased density compared to the right which is suggestive of the parotiditis. Clinical correlation advised.
--- NOTE | ~2023-09-16 | CT_ITS ---
CT brain wo con Ordering provider: Ana Luisa Lemon MD History: 73 years Male with . left facial droop . Comparison: August 01, 2023 Technique: CT of the head without contrast. Radiation reduction technique utilized. FINDINGS: BRAIN PARENCHYMA AND CSF SPACES: Hypodense area seen in the medulla which may be partly artifactual. Small hypodense area also seen in the margaret. MRI evaluation is advised. Deep white matter ischemic aury nges with mild brain atrophy is noted. No midline shift, mass effect or hemorrhage. Slight dilatation of the ventricles. The brain parenchyma and CSF spaces are otherwise normal. VISUALIZED PARANASAL SINUSES: Well aerated. MASTOIDS: Well aerated. BONES: Small osteoma in the inner table of the right frontal bone otherwise, The bones appear intact. SOFT TISSUES: Visualized nasopharynx is normal. Small soft tissue density in the left occipital scal p most likely sebaceous cyst or hematoma. Otherwise, Superficial soft tissues are normal. IMPRESSION: Hypodense area seen in the medulla which may be partly artifactual. Small hypodense area also seen in the margaret which also may be artifactual. MRI evaluation is advised. Reviewed, dictated and finalized at location A. IMPRESSION: Hypodense area seen in the medulla which may be partly artifactual. Small hypod ense area also seen in the margaret which also may be artifactual. MRI evaluation i s advised.
[2023-09-16 12:13] VITALS: BP 129/81; PULSE 79; RESP 16; TEMP 36.2; O2SAT 100
--- NOTE | 2023-09-16 12:32 | ED.DENTAL ---
HPI - Dental/Oral General Chief complaint: Dental/Oral Stated complaint: swollen left jaw Time Seen by Provider: 09/16/23 12:31 History of Present Illness HPI Narrative: Patient is a 73 year old male with history of dementia, CHF, COPD here with possible left sided facial droop and possible left sided facial swelling. Patient has dimension is a fairly poor historian. He denies any complaints at this time. He states that he was sent in here because they were worried he may be having a stroke. This is reportedly the 1st time patient has been clean shaven for quite some time. Per nursing, a dentist was going to evaluate the patient, unsure if this was at his facility or he went to a dental office. The dentist reportedly saw that he had possible left-sided facial droop and did not want to evaluate him and he instead was sent into emergency department for evaluation for possible stroke versus dental infection. Patient has no complaints at this time. Denies any pain, denies any numbness or weakness in his arms or legs. Denies any difficulty moving his face or sensory deficits in his face. No trouble breathing or swallowing. No fever or chills. Related Data Home Medications Medication Instructions Recorded Confirmed metoprolol tartrate 50 mg tablet 100 mg PO Q12HR 01/25/21 07/28/23 terazosin 10 mg capsule 10 mg PO QAM 06/09/21 07/28/23 Lactobacillus acidoph-L.bulgaricus 1 tablet PO BID 04/12/23 07/28/23 1 million cell tablet acetaminophen 325 mg tablet 650 mg PO Q4H PRN Pain (Scale 04/12/23 07/28/23 Score 1-3) albuterol sulfate 2.5 mg/3 mL 2.5 mg inhalation Q6H PRN Wheezing 04/12/23 07/28/23 (0.083 %) solution for nebulization aspirin 81 mg tablet,delayed 81 mg PO DAILY 04/12/23 07/28/23 release atorvastatin 10 mg tablet 10 mg PO HS 04/12/23 07/28/23 fluticasone 100 mcg-salmeterol 50 1 ea inhalation QAM 04/12/23 07/28/23 mcg/dose blistr powdr for inhalation (Wixela Inhub) folic acid 1 mg tablet 1 mg PO QAM 04/12/23 07/28/23 nystatin 100,000 unit/gram topical 1 applic topical Q12H PRN reddness 04/12/23 07/28/23 powder omeprazole 20 mg capsule,delayed 20 mg PO QAM 04/12/23 07/28/23 release ramelteon 8 mg tablet 8 mg PO QHS 04/12/23 07/28/23 sennosides 8.6 mg tablet (senna) 8.6 mg PO BID 04/12/23 07/28/23 amlodipine 5 mg tablet 5 mg PO QAM 04/13/23 07/28/23 Allergies Allergy/AdvReac Type Severity Reaction Status Date / Time Penicillins AdvReac Unknown Unknown Verified 04/18/23 11:48 Review of Systems Review of Systems: All systems reviewed & are unremarkable except as noted in HPI and below PMFSH Past Medical History Medical History Acute cholecystitis 07/2019 treated with antibiotic therapy, no cholecystectomy due to being a poor surgical candidate. 10/08/2019 - returned to hospital with intra-abdominal abscess in the gallbladder fossa and extending around liver - thought to be related to gallbladder perforation. Treated with antibiotics and percutaneous drainage x 3. Alcohol abuse Anxiety Atrial fibrillation BPH (benign prostatic hyperplasia) CHF (congestive heart failure) Echocardiogram on 10/20/19 showing EF 55-60% with variable contractility due to atrial fibrillation. Aortic valve sclerosis without hemodynamically significant stenosis by Doppler. Trace TR, moderate pulmonary hypertension. Small circumferential pericardial effusion. Choledocholithiasis Chronic anemia COPD (chronic obstructive pulmonary disease) Dementia Essential hypertension GERD (gastroesophageal reflux disease) Histoplasmosis Retinal histoplasmosis and very poor vision History of BPH History of TIAs Hyperlipidemia Vitamin D deficiency Surgical History Surgical History History of bilateral cataract extraction History of cholecystectomy History of vasectomy Male circumcision S/P cholecystectomy Family Histor
--- NOTE | 2023-09-16 13:16 | ECG_ITS ---
Test Date: 2023-09-16 13:26:00 Measurements Intervals [place] Rate: 59 P: 0 NM: 0 QRS: 36 QRSD: 82 T: 39 QT: 434 QTc: 432 Interpretive Statements ATRIAL FIBRILLATION WITH SLOW VENTRICULAR RESPONSE SEPTAL MYOCARDIAL INFARCTION , PROBABLY OLD [40+ ms Q WAVE IN V1/V2] No previous ECG available for comparison Electronically Signed On 09-17-2023 10:43:15 CDT by Trung Ferreira M.D.
[2023-09-16 13:35] LABS: Basophils Percent Auto 0.6 % (0.2-1.2); Eosinophils Absolute Auto 0.1 K/mm3 (0-0.3); Hematocrit 39.8 % (42.0-52.0); Hemoglobin 13.2 g/dL (14.0-18.0); Immature Granulocyte Absolute 0.01 K/mm3 (0.00-0.031); Immature Granulocyte Percent A 0.2 % (0-0.5); Lymphocytes Absolute Auto 1.56 K/mm3 (0.9-3.2); Lymphocytes Percent Auto 30.5 % (18.3-44.2); Mean Corpuscular HGB Conc 33.2 g/dl (32-36); Mean Corpuscular Hemoglobin 32.4 pg (26-34); Mean Corpuscular Volume 97.8 fl (80-100); Mean Platelet Volume 10.7 fl (7.4-10.4); Monocytes Absolute Auto 0.4 K/mm3 (0.1-0.6); Monocytes Percent Auto 7.2 % (2.6-8.5); Neutrophils Percent Auto 59.5 % (45.5-73.1); Platelet Count Result 122 k/mm3 (150-375); Red Blood Count 4.07 M/mm3 (4.6-6.20); Red Cell Distribution Width 12.6 % (11.5-14.5); White Blood Count 5.1 K/mm3 (4.5-10.0)
[2023-09-16 13:51] LABS: Alanine Aminotransferase 10 U/L (6-50); Albumin Level 3.6 g/dL (3.5-5.1); Alkaline Phosphatase 69 U/L (38-126); Anion Gap 1 mmol/L (4-12); Aspartate Amino Transferase 19 U/L (17-59); Bilirubin,Total 0.5 mg/dL (0.2-1.3); Blood Urea Nitrogen 18 mg/dL (9-20); CRP < 0.5 mg/dL (<1.0); Calcium 8.6 mg/dL (8.4-10.2); Carbon Dioxide 31 mmol/L (22-30); Chloride 106 mmol/L (98-107); Estimated CRCL calculation 71 ml/min; Estimated Glomerular Filt Rate > 60; Glucose 83 mg/dL (65-110); Potassium 4.1 mmol/L (3.4-5.0); Sodium 138 mmol/L (137-145)
[2023-09-16 16:28] LABS: Appearance Urine Clear (Clear); Bacteria Urine None Seen /hpf; Bilirubin Urine Negative (Negative); Blood Urine Negative (Negative); Color Urine Dark Yellow (Yellow); Glucose Urine UA Negative (Negative); Ketones Urine Trace mg/dL (Negative); Leukocyte Esterase Ur Trace LEU/UL (Negative); Nitrate Urine Negative (Negative); Non Pathogenic Casts 0-2; Protein Urine Trace mg/dL (Negative); RBC Urine 0-2 /hpf (0-2); Squamous Epithelial Cell Urine None Seen /hpf (Few); WBC Urine 0-5 /hpf (0-3)
[2023-09-16 16:56] LABS: Add Urine Microscopic? YES; Specific Grav Ur 1.032 (1.001-1.035)
[2023-09-16 17:28] VITALS: BP 124/72; PULSE 74; RESP 16; O2SAT 100
== END 2023-09-16 17:31 ==
PROVIDERS: Emergency Provider Student in an Organized Health Care Education/Training Program; PCP Family Medicine
DX: K11.21 Acute sialoadenitis (principal); F03.90 Unspecified dementia, unspecified severity, without behavioral disturbance, psychotic disturbance, mood disturbance, and anxiety; I48.91 Unspecified atrial fibrillation; I50.9 Heart failure, unspecified; I11.0 Hypertensive heart disease with heart failure; J44.9 Chronic obstructive pulmonary disease, unspecified; E78.5 Hyperlipidemia, unspecified; E55.9 Vitamin D deficiency, unspecified; D64.9 Anemia, unspecified; N40.0 Benign prostatic hyperplasia without lower urinary tract symptoms; Z86.73 Personal history of transient ischemic attack (TIA), and cerebral infarction without residual deficits; Z87.891 Personal history of nicotine dependence; Z79.899 Other long term (current) drug therapy; Z79.82 Long term (current) use of aspirin; Z90.49 Acquired absence of other specified parts of digestive tract; Z98.42 Cataract extraction status, left eye; Z98.41 Cataract extraction status, right eye; R94.31 Abnormal electrocardiogram [ECG] [EKG]; E04.9 Nontoxic goiter, unspecified
CPT/HCPCS: 36415; 70450; 70491; 80053; 81001; 85025; 85055; 86140; 93005; 99284; Q9967

== ENCOUNTER 2023-10-15 10:17 | Inpatient (IN) | payer MEDICARE, SELFPAY ==
[2023-10-15] VITALS (14 sets, daily range): BP systolic 91–164; BP diastolic 61–98; PULSE 82–99; RESP 12–20; TEMP 36.8–37.6; O2SAT 93–99; BMI 26.8
--- NOTE | ~2023-10-15 | XR_ITS ---
XR chest 2V Ordering provider: Chuck Quintana MD History: 73 years Male with . SOB/WEAK RT SIDE NOTED . Comparison: August 01, 2023 FINDINGS: MEDIASTINUM: The cardiac silhouette is moderately enlarged. Congestive gamaliel. LUNGS: No effusion or pneumothorax. Opacification the right upper, and both lower lobes is seen sugge stive of pneumonia. Pulmonary edema cannot be excluded. OTHER: No free air under the diaphragm. Degenerative changes of the spine IMPRESSION: Bilateral pneumonia. Pulmonary edema cannot be excluded. Reviewed, dictated and finalized at location A.
--- NOTE | ~2023-10-15 | XR_ITS ---
Portable chest x-ray Comparison: 10/15/2023 Clinical History: Cough Findings: Lungs are clear, without focal consolidation or pleural effusion. Cardiomediastinal silho uette is stable. Bones and soft tissues are unremarkable. Impression: Clear lungs. Stable cardiomegaly. Reviewed, dictated and finalized at location . Impression: Clear lungs. Stable cardiomegaly.
--- NOTE | ~2023-10-15 | CT_ITS ---
EXAMINATION: CT pelvis wo con DATE: 10/18/2023 13:30 INDICATION: Left groin and perineal swelling and erythema. TECHNIQUE: Computed tomography (CT) of the pelvis was performed without intravenous contrast. Automat ed exposure control and iterative reconstruction technique were employed. The dose-length product was 510.89 mGy-cm. COMPARISON: CT abdomen and pelvis 04/12/2023 FINDINGS: There is diverticulosis of the colon without evidence of diverticulitis. Stool distends the rectum. The appendix is normal. There are no pathologically enlarged lymph nodes. There is no free i ntraperitoneal fluid. There is a left inguinal hernia containing fat. Bone alignment is normal. No fr acture. There is moderate osteoarthritis of the hips. There is internal fixation of the femora. IMPRESSION: 1. Left inguinal hernia containing fat. Reviewed, dictated and finalized at location E.
--- NOTE | ~2023-10-15 | XR_ITS ---
MODIFIED ESOPHAGRAM HISTORY: Assess for aspiration TECHNIQUE: Modified barium esophagram was performed on 10/16/2023. I administered fluoroscopy and perf ormed the exam with speech pathologist. Patient was seated for lateral fluoroscopic imaging for jasmin stion of thin liquids, pudding, solids and quantified amounts, followed by thin liquids in uncontroll ed amounts. This was recorded on tape. A single fluoroscopic spot image was also recorded. The DAP fo r this procedure was 2.394 Gycm2. The amount of fluoroscopy time used during this procedure was 3.8 m inutes. FINDINGS: Oral stage: Adequate function. Pharyngeal stage: Reduced tongue base retraction.. There is spillover into the vallecula and piriform sinus prior to the swallow. There is vallecular and piriform sinus residue. Patient unable to follow prompts for repeat swallows to clear the residue. Cervical/esophageal stage: Adequate function. IMPRESSION: Patient tolerated regular consistency oral feedings in the upright position but with sign ificant residue in the vallecula and piriform sinuses. Please correlate with speech pathologist find ings and specific feeding recommendations. Reviewed, dictated and finalized at location A. IMPRESSION: Patient tolerated regular consistency oral feedings in the upright position but with significant residue in the vallecula and piriform sinuses. P lease correlate with speech pathologist findings and specific feeding recommend ations.
--- NOTE | 2023-10-15 10:21 | ECG_ITS ---
Test Date: 2023-10-15 11:28:34 Measurements Intervals [place] Rate: 93 P: 0 NM: 0 QRS: -3 QRSD: 97 T: 6 QT: 363 QTc: 452 Interpretive Statements ATRIAL FIBRILLATION DELAYED PRECORDIAL R/S TRANSITION CONSIDER INFERIOR INFARCT, AGE INDETERMINATE ABNORMAL ECG Compared to ECG 09/16/2023 13:26:00 HEART RATE HAS INCREASED Electronically Signed On 10-15-2023 11:38:49 CDT by Michael Cedeno D.O.
[2023-10-15] MEDS: ALBUTEROL SULFATE NEB 2.5 MG/3 ML INH 5 MG INHALATION (11:38)
[2023-10-15 11:43] LABS: Fractional Inspired Oxygen 21 %; HCO3 VBG 27.2 mEq/l (24.0-30.0); PCO2 VBG 43.2 mmHg (42.0-48.0)
[2023-10-15 11:46] LABS: Device ROOM AIR; PO2 VBG < 27.0 mmHg (35.0-45.0); pH VBG 7.417 (7.300-7.400)
[2023-10-15 11:54] LABS: Basophils Percent Auto 0.4 % (0.2-1.2); Eosinophils Percent Auto 0.2 % (0-4.4); Hematocrit 38.6 % (42.0-52.0); Hemoglobin 13.1 g/dL (14.0-18.0); Immature Granulocyte Absolute 0.02 K/mm3 (0.00-0.031); Immature Granulocyte Percent A 0.4 % (0-0.5); Lymphocytes Absolute Auto 0.84 K/mm3 (0.9-3.2); Mean Corpuscular HGB Conc 33.9 g/dl (32-36); Mean Corpuscular Hemoglobin 32.7 pg (26-34); Mean Corpuscular Volume 96.3 fl (80-100); Mean Platelet Volume 10.9 fl (7.4-10.4); Monocytes Absolute Auto 0.6 K/mm3 (0.1-0.6); Monocytes Percent Auto 11.3 % (2.6-8.5); Neutrophils Absolute Auto 3.5 K/mm3 (1.3-6.7); Neutrophils Percent Auto 70.7 % (45.5-73.1); Platelet Count Result 94 k/mm3 (150-375); Red Blood Count 4.01 M/mm3 (4.6-6.20); Red Cell Distribution Width 12.4 % (11.5-14.5); White Blood Count 4.9 K/mm3 (4.5-10.0)
[2023-10-15 11:59] LABS: Lactic Acid Reflex 1.2 mmol/L (0.7-2.0)
[2023-10-15 12:00] LABS: Alanine Aminotransferase 15 U/L (6-50); Albumin Level 3.9 g/dL (3.5-5.1); Alkaline Phosphatase 63 U/L (38-126); Anion Gap 8 mmol/L (4-12); Aspartate Amino Transferase 23 U/L (17-59); Bilirubin,Total 0.8 mg/dL (0.2-1.3); Blood Urea Nitrogen 14 mg/dL (9-20); Calcium 8.7 mg/dL (8.4-10.2); Carbon Dioxide 29 mmol/L (22-30); Chloride 101 mmol/L (98-107); Estimated Glomerular Filt Rate > 60; Glucose 98 mg/dL (65-110); Potassium 3.6 mmol/L (3.4-5.0); Sodium 138 mmol/L (137-145)
[2023-10-15 12:08] LABS: NT Pro B Type Natriuretic Pept 2230 pg/mL (19.9-100)
[2023-10-15] MEDS: DOXYCYCLINE 100 MG/NS 100 ML 100 MG/100 ML BAG IVPB (12:19)
--- NOTE | 2023-10-15 13:51 | ED.WEAKNESS ---
HPI - Weakness General Chief complaint: Weakness Stated complaint: weakness, altered Time Seen by Provider: 10/15/23 10:56 History of Present Illness HPI Narrative: HPI limited due to patient's altered mental status This is a 73-year-old male, with history of hypertension, CHF and COPD, brought in by EMS from a snf for weakness for the past 2 days, cough and shortness of breath beginning this morning. EMS reports snf staff noted the patient remained at his baseline A&Ox2 but appeared more weak than usual. The patient denies chest pain or abdominal pain. Related Data Home Medications Medication Instructions Recorded Confirmed metoprolol tartrate 50 mg tablet 100 mg PO Q12HR 01/25/21 07/28/23 terazosin 10 mg capsule 10 mg PO QAM 06/09/21 07/28/23 Lactobacillus acidoph-L.bulgaricus 1 tablet PO BID 04/12/23 07/28/23 1 million cell tablet acetaminophen 325 mg tablet 650 mg PO Q4H PRN Pain (Scale 04/12/23 07/28/23 Score 1-3) albuterol sulfate 2.5 mg/3 mL 2.5 mg inhalation Q6H PRN Wheezing 04/12/23 07/28/23 (0.083 %) solution for nebulization aspirin 81 mg tablet,delayed 81 mg PO DAILY 04/12/23 07/28/23 release atorvastatin 10 mg tablet 10 mg PO HS 04/12/23 07/28/23 fluticasone 100 mcg-salmeterol 50 1 ea inhalation QA 04/12/23 07/28/23 mcg/dose blistr powdr for inhalation (Corrine Inhgela) folic acid 1 mg tablet 1 mg PO QAM 04/12/23 07/28/23 nystatin 100,000 unit/gram topical 1 applic topical Q12H PRN reddness 04/12/23 07/28/23 powder omeprazole 20 mg capsule,delayed 20 mg PO QAM 04/12/23 07/28/23 release ramelteon 8 mg tablet 8 mg PO QHS 04/12/23 07/28/23 sennosides 8.6 mg tablet (senna) 8.6 mg PO BID 04/12/23 07/28/23 amlodipine 5 mg tablet 5 mg PO QAM 04/13/23 07/28/23 Allergies Allergy/AdvReac Type Severity Reaction Status Date / Time Penicillins AdvReac Unknown Unknown Verified 04/18/23 11:48 Review of Systems Review of Systems: ROS unobtainable: Yes unobtainable due to mental status PMFSH Past Medical History Medical History Acute cholecystitis 07/2019 treated with antibiotic therapy, no cholecystectomy due to being a poor surgical candidate. 10/08/2019 - returned to hospital with intra-abdominal abscess in the gallbladder fossa and extending around liver - thought to be related to gallbladder perforation. Treated with antibiotics and percutaneous drainage x 3. Alcohol abuse Anxiety Atrial fibrillation BPH (benign prostatic hyperplasia) CHF (congestive heart failure) Echocardiogram on 10/20/19 showing EF 55-60% with variable contractility due to atrial fibrillation. Aortic valve sclerosis without hemodynamically significant stenosis by Doppler. Trace TR, moderate pulmonary hypertension. Small circumferential pericardial effusion. Choledocholithiasis Chronic anemia COPD (chronic obstructive pulmonary disease) Dementia Essential hypertension GERD (gastroesophageal reflux disease) Histoplasmosis Retinal histoplasmosis and very poor vision History of BPH History of TIAs Hyperlipidemia Vitamin D deficiency Surgical History Surgical History History of bilateral cataract extraction History of cholecystectomy History of vasectomy Male circumcision S/P cholecystectomy Family History Family History Sibling Polio Father Lung cancer Mother Hypertension Social History Social History Social History: Patient was drinking (3) 4 oz drinks of Tequila a day prior to his hospitalization in July 2019. Code status: Full code. Surrogate decision maker is Raine phone number [phone]. The patient has 2 children. 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 Smoking packs per day: 1 Smoking cigarettes per day: 20.0 Years smoked: 64
--- NOTE | 2023-10-15 16:55 | PM.IMHP ---
H&P: HPI History of Present Illness Date/Time: 10/15/23 16:55 Chief Complaint: Drowsiness, weakness, cough Narrative: Lloyd Redman is a 73 year old male with PMH of CHF, COPD, atrial fibrillation, dementia, and HTN presents from his nursing facility with two days of increasing weakness and confusion with increasing cough. Lloyd is a poor historian and is unable to provide significant amounts of history on my examination. Lloyd does state he has been coughing. He denies any chest pain. Additional history is unable to be obtained. On ED evaluation the patient had CXR with findings of bilateral pneumonia. His labwork whows a normal wbc count and LA. His electrolytes and renal function are grossly wdl. His BNP is 2230 which is one of his lower readings historically, with range from 2170 to 15,900 in the past. Lloyd was started on rocephin and doxycycline. His VS were stable. He will be admitted for further management of his acute pneumonia. Review of Systems Review of Systems: Patient is unable to provide significant ROS data other than as noted above. [facility] Past Medical History Medical History Acute cholecystitis 07/2019 treated with antibiotic therapy, no cholecystectomy due to being a poor surgical candidate. 10/08/2019 - returned to hospital with intra-abdominal abscess in the gallbladder fossa and extending around liver - thought to be related to gallbladder perforation. Treated with antibiotics and percutaneous drainage x 3. Alcohol abuse Anxiety Atrial fibrillation BPH (benign prostatic hyperplasia) CHF (congestive heart failure) Echocardiogram on 10/20/19 showing EF 55-60% with variable contractility due to atrial fibrillation. Aortic valve sclerosis without hemodynamically significant stenosis by Doppler. Trace TR, moderate pulmonary hypertension. Small circumferential pericardial effusion. Choledocholithiasis Chronic anemia COPD (chronic obstructive pulmonary disease) Dementia Essential hypertension GERD (gastroesophageal reflux disease) Histoplasmosis Retinal histoplasmosis and very poor vision History of BPH History of TIAs Hyperlipidemia Vitamin D deficiency Surgical History Surgical History History of bilateral cataract extraction History of cholecystectomy History of vasectomy Male circumcision S/P cholecystectomy Family History Family History Sibling Polio Father Lung cancer Mother Hypertension Social History Social History Social History: Patient was drinking (3) 4 oz drinks of Tequila a day prior to his hospitalization in July 2019. Code status: Full code. Surrogate decision maker is Raine phone number [phone]. The patient has 2 children. 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 Smoking packs per day: 1 Smoking cigarettes per day: 20.0 Years smoked: 64 Smoking pack-years: 64.00 Smoking status: Never smoker Tobacco type: cigarettes Second hand tobacco smoke exposure: Yes Smoking end date: 10/08/19 Alcohol intake: former Drinks per week: 21 Substance use: never Substance use type: does not use Other substance usage details: Last drink was 2 years ago. Last use: 1971 Do You Feel Safe in your Home?: Yes Lack of Transportation: No Lack of Food: Never True Current Housing: I Have Housing Concerned About Future Housing: No Difficulty Paying Gas/Electric Bills: No Difficulty Paying for Meds: No Currently Unemployed: No Education: Decline to Answer Difficulty w/ Childcare or Family Care: No Living arrangements: detention Additional living arrangements comments: [facility] since recent hospitalization Occupation/Education: retired Gender identity (if verbalized by the patie
--- NOTE | 2023-10-15 17:55 | PC.NURSE ---
This patient, Lloyd Redman, was admitted to [facility] Surg Room 322-01. Patient/family oriented to hospital policies and general routines including ID bracelet, bed and alarms, visiting hours, pain management, procedures, bathroom and other care routines, personal items, smoking policy, room service/diet, and visiting hours. Information on how to activate the Rapid Response Team has been discussed. Patient/Family are encouraged to report perceived risks to care and to ask questions if they do not understand what they are told or what they should do.
[2023-10-15] MEDS: IPRATROPIUM 0.5 MG/ALBUTEROL SULFATE 2.5 MG AMPUL.NEB 3 ML INHALATION (20:10)
[2023-10-15] MEDS: LOSARTAN POTASSIUM 50 MG TABLET 100 MG PO (20:45)
[2023-10-15] MEDS: ATORVASTATIN 10 MG TABLET PO (20:45)
[2023-10-15] MEDS: DOXYCYCLINE HYCLATE 100 MG TABLET PO (20:45)
[2023-10-15] MEDS: METOPROLOL TARTRATE 50 MG TAB 100 MG PO (20:45)
[2023-10-16] VITALS (20 sets, daily range): BP systolic 98–169; BP diastolic 66–95; PULSE 72–100; RESP 16–20; TEMP 36.1–36.7; O2SAT 92–97
[2023-10-16 07:05] LABS: Anion Gap 7 mmol/L (4-12); Blood Urea Nitrogen 11 mg/dL (9-20); Calcium 8.5 mg/dL (8.4-10.2); Carbon Dioxide 28 mmol/L (22-30); Chloride 102 mmol/L (98-107); Estimated CRCL calculation 80 ml/min; Estimated Glomerular Filt Rate > 60; Glucose 83 mg/dL (65-110); Potassium 3.7 mmol/L (3.4-5.0); Sodium 137 mmol/L (137-145)
[2023-10-16 07:14] LABS: Basophils Percent Auto 0.2 % (0.2-1.2); Eosinophils Percent Auto 0.2 % (0-4.4); Hematocrit 39.3 % (42.0-52.0); Hemoglobin 13.3 g/dL (14.0-18.0); Immature Granulocyte Absolute 0.02 K/mm3 (0.00-0.031); Immature Granulocyte Percent A 0.4 % (0-0.5); Immature Platelet Fraction Pct 4.3 % (0.9-11.2); Lymphocytes Absolute Auto 1.19 K/mm3 (0.9-3.2); Lymphocytes Percent Auto 23.1 % (18.3-44.2); Mean Corpuscular HGB Conc 33.8 g/dl (32-36); Mean Corpuscular Hemoglobin 32.7 pg (26-34); Mean Corpuscular Volume 96.6 fl (80-100); Mean Platelet Volume 11.1 fl (7.4-10.4); Monocytes Absolute Auto 0.6 K/mm3 (0.1-0.6); Monocytes Percent Auto 12.2 % (2.6-8.5); Neutrophils Absolute Auto 3.3 K/mm3 (1.3-6.7); Neutrophils Percent Auto 63.9 % (45.5-73.1); Platelet Count Result 96 k/mm3 (150-375); Red Blood Count 4.07 M/mm3 (4.6-6.20); Red Cell Distribution Width 12.2 % (11.5-14.5); White Blood Count 5.2 K/mm3 (4.5-10.0)
[2023-10-16 07:28] LABS: Procalcitonin 0.1 ng/mL
[2023-10-16] MEDS: IPRATROPIUM 0.5 MG/ALBUTEROL SULFATE 2.5 MG AMPUL.NEB 3 ML INHALATION (07:31)
[2023-10-16] MEDS: FLUTICASONE/SALMETEROL 45-21 MCG INHALER 1 PUFF 2 PUFF INHALATION (07:33)
[2023-10-16] MEDS: SENNOSIDES 8.6 MG TABLET PO ×2 (09:03→16:25)
[2023-10-16] MEDS: ASPIRIN 81 MG ENTERIC TABLET PO (09:03)
[2023-10-16] MEDS: FOLIC ACID 1 MG TABLET PO (09:03)
[2023-10-16] MEDS: ESCITALOPRAM OXALATE 5 MG TABLET PO (09:03)
[2023-10-16] MEDS: TERAZOSIN HCL 5 MG CAPSULE 10 MG PO (09:03)
[2023-10-16] MEDS: amLODIPine BESYLATE 5 MG TABLET PO (09:03)
[2023-10-16] MEDS: METOPROLOL TARTRATE 50 MG TAB 100 MG PO ×2 (09:03→20:16)
[2023-10-16] MEDS: PANTOPRAZOLE 40 MG TABLET PO (09:04)
[2023-10-16] MEDS: DOXYCYCLINE HYCLATE 100 MG TABLET PO ×2 (09:04→20:16)
[2023-10-16] MEDS: ENOXAPARIN 40 MG/0.4 ML SYRINGE SUB-Q (09:04)
--- NOTE | 2023-10-16 09:28 | PM.IMPN ---
Progress Note: A&P Assessment and Plan (1) Pneumonia: Qualifiers: Laterality: right Lung location: upper lobe of lung Pneumonia type: due to unspecified organism Qualified Code(s): J18.9 - Pneumonia, unspecified organism Code(s): J18.9 - Pneumonia, unspecified organism Status: Acute (2) Altered mental status: Qualifiers: Altered mental status type: unspecified Qualified Code(s): R41.82 - Altered mental status, unspecified Code(s): R41.82 - Altered mental status, unspecified Status: Acute Plan (1) Pneumonia: Qualifiers: Laterality: right Lung location: upper lobe of lung Pneumonia type: due to unspecified organism Qualified Code(s): J18.9 - Pneumonia, unspecified organism Code(s): J18.9 - Pneumonia, unspecified organism Status: Acute Assessment and Plan: Started on ceftriaxone/doxy which will continue. Blood cx were obtained. He is breathing easily on examination. He appears to be managing secretions well - but noted pureed diet. Will have a swallow eval while inpatient. With his 64 pack year history, repeat imaging after pna resolution will be needed. 10/15: Patient still has cough and some phlegm with the cough. Patient passed swallowing test and modified barium swallowing test. Continue current antibiotics (2) Chronic bronchitis: Qualifiers: Chronic bronchitis type: unspecified Qualified Code(s): J42 - Unspecified chronic bronchitis Code(s): J42 - Unspecified chronic bronchitis Status: Acute Assessment and Plan: Duonebs qid. Albuterol prn. Cont. home laba/ics. 64 pack year smoking history. (3) CHF with unknown LVEF: Code(s): I50.9 - Heart failure, unspecified Status: Acute Assessment and Plan: Elevated bnp c/w prior lab results, not in [place] on examination. 65% EF. Cont. lasix, toprol, losartan. (4) Altered mental status: Qualifiers: Altered mental status type: unspecified Qualified Code(s): R41.82 - Altered mental status, unspecified Code(s): R41.82 - Altered mental status, unspecified Status: Acute Assessment and Plan: Unclear baseline at this time. He is able to answer simple questions and is oriented to self. (5) Essential hypertension: Code(s): I10 - Essential (primary) hypertension Status: Chronic Assessment and Plan: Stable on VS, cont. norvasc. (6) History of BPH: Code(s): Z87.438 - Personal history of other diseases of male genital organs Status: Chronic Assessment and Plan: Cont. alpha edmund. Thrombocytopenia, Patient has a chronic thrombocytopenia, platelet is trending down, hold Lovenox, no sign of active bleeding, follow-up CBC Plan Lloyd Redman is a 73 year old male who presents with findings c/w pneumonia from his nursing facility. We will cont. abx at this time with cultures pending to further direct care. Repeat labs in am including procalcitonin, bmp, cbc. Subjective Date/time seen: 10/16/23 09:28 Interval history: Patient is afebrile, still has tachypnea, tachycardia, patient is on room air. Patient still has a cough with some phlegm, patient alert, not oriented x3 Exam Narrative: GENERAL APPEARANCE: Appears to be in no acute distress. HEAD: normocephalic atraumatic ENT: Hearing grossly intact, no nasal discharge NECK: Neck supple, trachea midline. CARDIAC: Normal S1/S2. Rhythm is regular. No murmurs, rubs, or gallops. No cyanosis or pallor. Extremities are warm and well perfused. LUNGS: Coarse breath sound bilaterally ABDOMEN: BS positive x 4 quadrants. Soft, nondistended, nontender. No guarding or rebound. MSK: No joint tenderness/swelling. PERIPHERAL VASCULAR: Peripheral pulses palpable. Normal perfusion, cap refill <2 seconds. Trace to +1 pedal edema. NEURO: Follows commands. No focal deficits. Oriented to self. SKIN: [place] without le
--- NOTE | 2023-10-16 10:03 | PCSTNOTE ---
Please refer to the Bedside Swallow Evaluation in the EMR. Please note, silent aspiration cannot be ruled out at bedside.
[2023-10-16] MEDS: IPRATROPIUM 0.5 MG/ALBUTEROL SULFATE 2.5 MG AMPUL.NEB 3 ML NEBULIZE ×3 (12:19→20:48)
--- NOTE | 2023-10-16 15:14 | PCSTNOTE ---
Please refer to the Modified Barium Swallow Evaluation in the EMR.
[2023-10-16] MEDS: LOSARTAN POTASSIUM 50 MG TABLET 100 MG PO (20:16)
[2023-10-16] MEDS: ATORVASTATIN 10 MG TABLET PO (20:16)
[2023-10-17] VITALS (21 sets, daily range): BP systolic 109–150; BP diastolic 65–92; PULSE 69–99; RESP 12–22; TEMP 35.8–36.4; O2SAT 92–100
[2023-10-17] MEDS: IPRATROPIUM 0.5 MG/ALBUTEROL SULFATE 2.5 MG AMPUL.NEB 3 ML NEBULIZE ×4 (07:25→20:29)
[2023-10-17] MEDS: FLUTICASONE/SALMETEROL 45-21 MCG INHALER 1 PUFF 2 PUFF INHALATION (07:25)
--- NOTE | 2023-10-17 08:03 | PM.IMPN ---
Progress Note: A&P Assessment and Plan (1) Pneumonia: Qualifiers: Laterality: right Lung location: upper lobe of lung Pneumonia type: due to unspecified organism Qualified Code(s): J18.9 - Pneumonia, unspecified organism Code(s): J18.9 - Pneumonia, unspecified organism Status: Acute (2) Altered mental status: Qualifiers: Altered mental status type: unspecified Qualified Code(s): R41.82 - Altered mental status, unspecified Code(s): R41.82 - Altered mental status, unspecified Status: Acute Plan (1) Pneumonia: Qualifiers: Laterality: right Lung location: upper lobe of lung Pneumonia type: due to unspecified organism Qualified Code(s): J18.9 - Pneumonia, unspecified organism Code(s): J18.9 - Pneumonia, unspecified organism Status: Acute Assessment and Plan: Started on ceftriaxone/doxy which will continue. Blood cx were obtained. He is breathing easily on examination. He appears to be managing secretions well - but noted pureed diet. Will have a swallow eval while inpatient. With his 64 pack year history, repeat imaging after pna resolution will be needed. 10/15: Patient still has cough and some phlegm with the cough. Patient passed swallowing test and modified barium swallowing test. Continue current antibiotics 10/16: Patient still has a cough, with scant phlegm, patient condition continued to improve, continue antibiotics today (2) Chronic bronchitis: Qualifiers: Chronic bronchitis type: unspecified Qualified Code(s): J42 - Unspecified chronic bronchitis Code(s): J42 - Unspecified chronic bronchitis Status: Acute Assessment and Plan: Duonebs qid. Albuterol prn. Cont. home laba/ics. 64 pack year smoking history. (3) CHF with unknown LVEF: Code(s): I50.9 - Heart failure, unspecified Status: Acute Assessment and Plan: Elevated bnp c/w prior lab results, not in [place] h[place] on examination. 65% EF. 10/16: Patient has crackles bilateral base, possible fluid overload start Lasix 20 mg b.i.d. IV push To follow-up input output and electrolyte, (4) Altered mental status: Qualifiers: Altered mental status type: unspecified Qualified Code(s): R41.82 - Altered mental status, unspecified Code(s): R41.82 - Altered mental status, unspecified Status: Acute Assessment and Plan: Unclear baseline at this time. He is able to answer simple questions and is oriented to self. (5) Essential hypertension: Code(s): I10 - Essential (primary) hypertension Status: Chronic Assessment and Plan: Stable on VS, cont. norvasc. (6) History of BPH: Code(s): Z87.438 - Personal history of other diseases of male genital organs Status: Chronic Assessment and Plan: Cont. alpha edmund. Thrombocytopenia, Patient has a chronic thrombocytopenia, platelet is trending down, hold Lovenox, no sign of active bleeding, follow-up CBC Patient came from assisted living, consult PT OT daycare assistant for evaluation and assisting placement. Per daycare assistant, patient came from assisted living, and per PT OT and daycare assistant evaluation, patient does not need to go to SNF. Patient may be discharged tomorrow if patient condition continues to improve Subjective Date/time seen: 10/17/23 08:03 Interval history: When I saw examined patient, patient was sitting in the chair. Patient lethargic, has no complaints. Patient still has a cough with some phlegm, patient alert, not oriented x3 Exam Narrative: GENERAL APPEARANCE: Appears to be in no acute distress. HEAD: normocephalic atraumatic ENT: Hearing grossly intact, no nasal discharge NECK: Neck supple, trachea midline. CARDIAC: Normal S1/S2. Rhythm is regular. No murmurs, rubs, or gallops. No cyanosis or pallor. Extremities are warm and well perfused. LUNGS: Coarse breath samuel
[2023-10-17] MEDS: SENNOSIDES 8.6 MG TABLET PO ×2 (08:28→16:45)
[2023-10-17] MEDS: METOPROLOL TARTRATE 50 MG TAB 100 MG PO ×2 (08:28→21:27)
[2023-10-17] MEDS: ASPIRIN 81 MG ENTERIC TABLET PO (08:28)
[2023-10-17] MEDS: ESCITALOPRAM OXALATE 5 MG TABLET PO (08:28)
[2023-10-17] MEDS: DOXYCYCLINE HYCLATE 100 MG TABLET PO ×2 (08:28→21:27)
[2023-10-17] MEDS: amLODIPine BESYLATE 5 MG TABLET PO (08:28)
[2023-10-17] MEDS: TERAZOSIN HCL 5 MG CAPSULE 10 MG PO (08:28)
[2023-10-17] MEDS: PANTOPRAZOLE 40 MG TABLET PO (08:29)
[2023-10-17] MEDS: FOLIC ACID 1 MG TABLET PO (08:29)
[2023-10-17] MEDS: FUROSEMIDE INJ 40 MG/4 ML VIAL 20 MG IV PUSH ×2 (09:12→16:45)
--- NOTE | 2023-10-17 16:04 | PCPTNOTE ---
On 10/17/23, the student, [Ramona Tena], provided care and completed [facility] documentation on this patient. I have reviewed the student's documentation and agree with the findings.
[2023-10-17] MEDS: LOSARTAN POTASSIUM 50 MG TABLET 100 MG PO (21:27)
[2023-10-17] MEDS: ATORVASTATIN 10 MG TABLET PO (21:27)
[2023-10-18] VITALS (22 sets, daily range): BP systolic 117–150; BP diastolic 68–92; PULSE 75–149; RESP 12–20; TEMP 36.1–36.6; O2SAT 93–98
[2023-10-18] MEDS: IPRATROPIUM 0.5 MG/ALBUTEROL SULFATE 2.5 MG AMPUL.NEB 3 ML NEBULIZE ×4 (07:03→20:07)
[2023-10-18] MEDS: FLUTICASONE/SALMETEROL 45-21 MCG INHALER 1 PUFF 2 PUFF INHALATION ×2 (07:04→20:08)
[2023-10-18] MEDS: METOPROLOL TARTRATE 50 MG TAB 100 MG PO ×2 (09:32→20:47)
[2023-10-18] MEDS: FOLIC ACID 1 MG TABLET PO (09:32)
[2023-10-18] MEDS: ESCITALOPRAM OXALATE 5 MG TABLET PO (09:32)
[2023-10-18] MEDS: ASPIRIN 81 MG ENTERIC TABLET PO (09:33)
[2023-10-18] MEDS: TERAZOSIN HCL 5 MG CAPSULE 10 MG PO (09:33)
[2023-10-18] MEDS: SENNOSIDES 8.6 MG TABLET PO ×2 (09:33→17:18)
[2023-10-18] MEDS: DOXYCYCLINE HYCLATE 100 MG TABLET PO ×2 (09:33→20:47)
[2023-10-18] MEDS: PANTOPRAZOLE 40 MG TABLET PO (09:33)
[2023-10-18] MEDS: amLODIPine BESYLATE 5 MG TABLET PO (09:33)
[2023-10-18] MEDS: FUROSEMIDE INJ 40 MG/4 ML VIAL 20 MG IV PUSH (09:33)
--- NOTE | 2023-10-18 12:58 | PM.IMPN ---
Progress Note: A&P Assessment and Plan (1) Pneumonia: Qualifiers: Laterality: right Lung location: upper lobe of lung Pneumonia type: due to unspecified organism Qualified Code(s): J18.9 - Pneumonia, unspecified organism Code(s): J18.9 - Pneumonia, unspecified organism Status: Acute (2) Altered mental status: Qualifiers: Altered mental status type: unspecified Qualified Code(s): R41.82 - Altered mental status, unspecified Code(s): R41.82 - Altered mental status, unspecified Status: Acute Plan Patient presented on 10/15/2023. Presented from [facility]. Associated cough shortness of breath. He has underlying dementia with baseline alert and oriented x2 On ED evaluation WBC normal at 4.9 unremarkable CMP. BNP was elevated at 2230. EKG with AFib. Chest x-ray with bilateral pneumonia versus CHF. Lactic acid normal. Started treatment for pneumonia with ceftriaxone and doxycycline. Swallow evaluation completed. Intermittent AFib with RVR. Confusion/encephalopathy seems to be improving or back to his baseline Perineal cellulitis possible bleeding add vancomycin will CT to further evaluate the area History of CHF chronic diastolic. Mild acute exacerbation. IV Lasix. Will stop IV Lasix History of COPD Atrial fibrillation Dementia Hypertension Chronic anemia GERD History of intracerebral hemorrhage in the past and hence not a candidate for systemic anticoagulation along with history of recurrent falls. He has left atrial appendage occlusion device in place DVT prophylaxis on Lovenox Disposition: PT OT to see Subjective Date/time seen: 10/18/23 12:58 Interval history: Intermittent tachycardia reported telemetry reviewed. Patient on and off confused. Noted some bleeding from his perineal area. Remains afebrile. Review of Systems Review of Systems: All systems reviewed & are unremarkable except as noted in HPI and below Exam Narrative: GENERAL APPEARANCE: Appears to be in no acute distress. Mildly confused HEAD: normocephalic atraumatic ENT: Hearing grossly intact, no nasal discharge NECK: Neck supple, trachea midline. CARDIAC: Normal S1/S2. Irregularly irregular on telemetry No murmurs, rubs, or gallops. No cyanosis or pallor. Extremities are warm and well perfused. LUNGS: Coarse breath sound bilaterally ABDOMEN: BS positive x 4 quadrants. Soft, nondistended, nontender. No guarding or rebound. MSK: No joint tenderness/swelling. PERIPHERAL VASCULAR: Peripheral pulses palpable. Normal perfusion, cap refill <2 seconds. Trace to +1 pedal edema. NEURO: Follows commands. No focal deficits. Oriented to self. SKIN: [place] without lesions or eruptions. Left perineal area with bruises which is tender to touch Objective Data Vital Signs Vital Signs: Vital Signs - 24 hr 10/17/23 14:25 10/17/23 14:35 10/17/23 16:00 Temperature 97.6 F Pulse Rate 80 84 82 Respiratory Rate 18 18 16 Blood Pressure 109/65 Pulse Oximetry 100 Oxygen Delivery Fraction of Inspired Oxygen 10/17/23 16:00 10/17/23 20:30 10/17/23 20:42 Temperature Pulse Rate 69 86 85 Respiratory Rate 18 18 Blood Pressure Pulse Oximetry Oxygen Delivery Fraction of Inspired Oxygen 10/17/23 21:27 10/17/23 21:40 10/17/23 21:25 Temperature 96.8 F L Pulse Rate 99 99 99 Respiratory Rate 18 16 Blood Pressure 127/89 Pulse Oximetry 100 96 Oxygen Delivery Room Air Fraction of Inspired Oxygen 21 10/18/23 00:05 10/17/23 20:02 10/18/23 00:03 Temperature 97.4 F L Pulse Rate 91 79 94 Respiratory Rate 18 Blood Pressure 137/86 Pulse Oximetry 95 Oxygen Delivery Fraction of Inspired Oxygen 10/18/23 04:02 10/18/23 07:02 10/18/23 07:02 Temperature Pulse Rate 75 83 83 Respiratory Rate 18 18 Blood Pressure Pulse Oximetry 93 Oxygen Delivery Room Air Fraction of Inspired Oxygen 10/18/23 07:35 10/18/23 07:43 10/18/23 06:50
[2023-10-18 13:16] LABS: Basophils Percent Auto 0.2 % (0.2-1.2); Eosinophils Absolute Auto 0.1 K/mm3 (0-0.3); Eosinophils Percent Auto 2.7 % (0-4.4); Hematocrit 37.7 % (42.0-52.0); Hemoglobin 13.1 g/dL (14.0-18.0); Immature Granulocyte Absolute 0.01 K/mm3 (0.00-0.031); Immature Granulocyte Percent A 0.2 % (0-0.5); Lymphocytes Absolute Auto 0.97 K/mm3 (0.9-3.2); Lymphocytes Percent Auto 20.2 % (18.3-44.2); Mean Corpuscular HGB Conc 34.7 g/dl (32-36); Mean Corpuscular Hemoglobin 33.1 pg (26-34); Mean Corpuscular Volume 95.2 fl (80-100); Mean Platelet Volume 10.3 fl (7.4-10.4); Monocytes Absolute Auto 0.3 K/mm3 (0.1-0.6); Monocytes Percent Auto 7.1 % (2.6-8.5); Neutrophils Absolute Auto 3.4 K/mm3 (1.3-6.7); Neutrophils Percent Auto 69.6 % (45.5-73.1); Platelet Count Result 119 k/mm3 (150-375); Red Blood Count 3.96 M/mm3 (4.6-6.20); White Blood Count 4.8 K/mm3 (4.5-10.0)
[2023-10-18 13:27] LABS: Alanine Aminotransferase 18 U/L (6-50); Albumin Level 3.8 g/dL (3.5-5.1); Alkaline Phosphatase 56 U/L (38-126); Anion Gap 10 mmol/L (4-12); Aspartate Amino Transferase 29 U/L (17-59); Bilirubin,Total 0.5 mg/dL (0.2-1.3); Blood Urea Nitrogen 22 mg/dL (9-20); Calcium 8.5 mg/dL (8.4-10.2); Carbon Dioxide 29 mmol/L (22-30); Chloride 101 mmol/L (98-107); Estimated CRCL calculation 59 ml/min; Estimated Glomerular Filt Rate > 60; Glucose 111 mg/dL (65-110); Magnesium 1.7 mg/dL (1.6-2.3); Potassium 3.2 mmol/L (3.4-5.0); Sodium 140 mmol/L (137-145)
[2023-10-18] MEDS: VANCOMYCIN 1,250 MG/NS 250 ML 1,250 MG/250 ML BAG 166.67 MG IVPB (13:43)
[2023-10-18] MEDS: POTASSIUM CHLORIDE 20 MEQ ER TABLET 40 MEQ PO (16:58)
[2023-10-18] MEDS: VANCOMYCIN 1,000 MG/NS 250 ML 1,000 MG/250 ML BAG 250 MG IVPB (16:59)
[2023-10-18] MEDS: MAGNESIUM SULF 2 GM/WATER 50ML 2 GM/50 ML BAG IVPB (18:51)
[2023-10-18 19:42] LABS: MRSA (PCR) NOT DETECTED (NOT DETECTE)
[2023-10-18] MEDS: LOSARTAN POTASSIUM 50 MG TABLET 100 MG PO (20:47)
[2023-10-18] MEDS: ATORVASTATIN 10 MG TABLET PO (20:47)
[2023-10-19] VITALS (20 sets, daily range): BP systolic 136–165; BP diastolic 87–95; PULSE 79–101; RESP 16–20; TEMP 36.2–36.9; O2SAT 96–100
[2023-10-19] MEDS: IPRATROPIUM 0.5 MG/ALBUTEROL SULFATE 2.5 MG AMPUL.NEB 3 ML NEBULIZE ×4 (07:42→20:36)
[2023-10-19] MEDS: FLUTICASONE/SALMETEROL 45-21 MCG INHALER 1 PUFF 2 PUFF INHALATION ×2 (07:58→20:36)
[2023-10-19 08:13] LABS: Alanine Aminotransferase 15 U/L (6-50); Albumin Level 3.5 g/dL (3.5-5.1); Alkaline Phosphatase 54 U/L (38-126); Anion Gap 7 mmol/L (4-12); Aspartate Amino Transferase 27 U/L (17-59); Bilirubin,Total 0.7 mg/dL (0.2-1.3); Blood Urea Nitrogen 17 mg/dL (9-20); Calcium 8.6 mg/dL (8.4-10.2); Carbon Dioxide 27 mmol/L (22-30); Chloride 106 mmol/L (98-107); Estimated CRCL calculation 80 ml/min; Estimated Glomerular Filt Rate > 60; Glucose 82 mg/dL (65-110); Potassium 3.5 mmol/L (3.4-5.0); Sodium 140 mmol/L (137-145)
[2023-10-19 08:18] LABS: Basophils Percent Auto 0.2 % (0.2-1.2); Eosinophils Absolute Auto 0.2 K/mm3 (0-0.3); Eosinophils Percent Auto 4.6 % (0-4.4); Hematocrit 36.7 % (42.0-52.0); Hemoglobin 12.5 g/dL (14.0-18.0); Immature Granulocyte Absolute 0.01 K/mm3 (0.00-0.031); Immature Granulocyte Percent A 0.2 % (0-0.5); Immature Platelet Fraction Pct 3.5 % (0.9-11.2); Lymphocytes Absolute Auto 1.45 K/mm3 (0.9-3.2); Lymphocytes Percent Auto 31.9 % (18.3-44.2); Mean Corpuscular HGB Conc 34.1 g/dl (32-36); Mean Corpuscular Hemoglobin 32.4 pg (26-34); Mean Corpuscular Volume 95.1 fl (80-100); Mean Platelet Volume 10.7 fl (7.4-10.4); Monocytes Absolute Auto 0.4 K/mm3 (0.1-0.6); Monocytes Percent Auto 8.6 % (2.6-8.5); Neutrophils Absolute Auto 2.5 K/mm3 (1.3-6.7); Neutrophils Percent Auto 54.5 % (45.5-73.1); Platelet Count Result 116 k/mm3 (150-375); Red Blood Count 3.86 M/mm3 (4.6-6.20); White Blood Count 4.5 K/mm3 (4.5-10.0)
[2023-10-19] MEDS: METOPROLOL TARTRATE 50 MG TAB 100 MG PO ×2 (09:22→21:20)
[2023-10-19] MEDS: DOXYCYCLINE HYCLATE 100 MG TABLET PO ×2 (09:25→21:19)
[2023-10-19] MEDS: amLODIPine BESYLATE 5 MG TABLET PO (09:25)
[2023-10-19] MEDS: SENNOSIDES 8.6 MG TABLET PO ×2 (09:25→17:53)
[2023-10-19] MEDS: FOLIC ACID 1 MG TABLET PO (09:25)
[2023-10-19] MEDS: PANTOPRAZOLE 40 MG TABLET PO (09:25)
[2023-10-19] MEDS: ESCITALOPRAM OXALATE 5 MG TABLET PO (09:25)
[2023-10-19] MEDS: ASPIRIN 81 MG ENTERIC TABLET PO (09:25)
[2023-10-19] MEDS: VANCOMYCIN 1,500 MG/NS 500 ML 1,500 MG/500 ML BAG 250 MG IVPB ×2 (09:28→21:18)
--- NOTE | 2023-10-19 10:33 | PM.IMPN ---
Progress Note: A&P Assessment and Plan (1) Pneumonia: Qualifiers: Laterality: right Lung location: upper lobe of lung Pneumonia type: due to unspecified organism Qualified Code(s): J18.9 - Pneumonia, unspecified organism Code(s): J18.9 - Pneumonia, unspecified organism Status: Acute (2) Altered mental status: Qualifiers: Altered mental status type: unspecified Qualified Code(s): R41.82 - Altered mental status, unspecified Code(s): R41.82 - Altered mental status, unspecified Status: Acute Plan Patient presented on 10/15/2023. Presented from group home. Associated cough shortness of breath. He has underlying dementia with baseline alert and oriented x2 On ED evaluation WBC normal at 4.9 unremarkable CMP. BNP was elevated at 2230. EKG with AFib. Chest x-ray with bilateral pneumonia versus CHF. Lactic acid normal. Started treatment for pneumonia with ceftriaxone and doxycycline. Swallow evaluation completed. Intermittent AFib with RVR. Currently rate controlled on current medication Confusion/encephalopathy seems to be improving or back to his baseline Perineal cellulitis possible bleeding add vancomycin. CT pelvis unremarkable. Findings consistent with will cellulitis in the area with bloody drainage. Continue current antibiotics History of CHF chronic diastolic. Mild acute exacerbation. IV Lasix. Lasix stopped well compensated currently History of COPD Atrial fibrillation Dementia Hypertension Chronic anemia GERD History of intracerebral hemorrhage in the past and hence not a candidate for systemic anticoagulation along with history of recurrent falls. He has left atrial appendage occlusion device in place DVT prophylaxis on Lovenox Disposition: PT OT to see Subjective Date/time seen: 10/19/23 10:33 Interval history: No overnight events. Left perineal area is less sore and is draining less now. Remains afebrile. Tachycardia has improved Review of Systems Review of Systems: All systems reviewed & are unremarkable except as noted in HPI and below Exam Narrative: GENERAL APPEARANCE: Appears to be in no acute distress. Mildly confused HEAD: normocephalic atraumatic ENT: Hearing grossly intact, no nasal discharge NECK: Neck supple, trachea midline. CARDIAC: Normal S1/S2. Irregularly irregular on telemetry No murmurs, rubs, or gallops. No cyanosis or pallor. Extremities are warm and well perfused. LUNGS: Coarse breath sound bilaterally ABDOMEN: BS positive x 4 quadrants. Soft, nondistended, nontender. No guarding or rebound. MSK: No joint tenderness/swelling. PERIPHERAL VASCULAR: Peripheral pulses palpable. Normal perfusion, cap refill <2 seconds. Trace to +1 pedal edema. NEURO: Follows commands. No focal deficits. Oriented to self. SKIN: [place] without lesions or eruptions. Left perineal area with multiple opening strains bloody drainage less edematous and tender to touch today Objective Data Vital Signs Vital Signs: Vital Signs - 24 hr 10/18/23 12:00 10/18/23 14:15 10/18/23 14:25 Temperature 97.1 F L Pulse Rate 95 80 81 Respiratory Rate 16 18 18 Blood Pressure 117/68 Pulse Oximetry 94 Oxygen Delivery Fraction of Inspired Oxygen 10/18/23 12:00 10/18/23 16:00 10/18/23 16:00 Temperature 97.4 F L Pulse Rate 93 88 93 Respiratory Rate 16 Blood Pressure 123/76 Pulse Oximetry 94 Oxygen Delivery Fraction of Inspired Oxygen 10/18/23 19:57 10/18/23 20:08 10/18/23 20:08 Temperature Pulse Rate 93 85 Respiratory Rate 16 18 Blood Pressure Pulse Oximetry 94 96 Oxygen Delivery Room Air Room Air Fraction of Inspired Oxygen 21 10/18/23 20:18 10/18/23 20:47 10/18/23 21:12 Temperature 97.5 F L Pulse Rate 105 H 98 108 H Respiratory Rate 20 20 Blood Pressure 147/77 H Pulse Oximetry 98 Oxygen Delivery Fraction of Inspired Oxygen 10/18/23 20:00 10/19/23 00:47 10/19/23 04:00 [place]
[2023-10-19] MEDS: TERAZOSIN HCL 5 MG CAPSULE 10 MG PO (11:30)
[2023-10-19] MEDS: ATORVASTATIN 10 MG TABLET PO (21:19)
[2023-10-19] MEDS: LOSARTAN POTASSIUM 50 MG TABLET 100 MG PO (21:19)
[2023-10-20] VITALS (16 sets, daily range): BP systolic 142–169; BP diastolic 87–94; PULSE 72–92; RESP 16–20; TEMP 36.3–36.5; O2SAT 97–98
[2023-10-20] MEDS: IPRATROPIUM 0.5 MG/ALBUTEROL SULFATE 2.5 MG AMPUL.NEB 3 ML NEBULIZE ×4 (07:48→20:13)
[2023-10-20] MEDS: FLUTICASONE/SALMETEROL 45-21 MCG INHALER 1 PUFF 2 PUFF INHALATION ×2 (07:56→20:14)
[2023-10-20] MEDS: ESCITALOPRAM OXALATE 5 MG TABLET PO (08:23)
[2023-10-20] MEDS: METOPROLOL TARTRATE 50 MG TAB 100 MG PO ×2 (08:23→21:58)
[2023-10-20] MEDS: DOXYCYCLINE HYCLATE 100 MG TABLET PO ×2 (08:23→21:59)
[2023-10-20] MEDS: ASPIRIN 81 MG ENTERIC TABLET PO (08:24)
[2023-10-20] MEDS: TERAZOSIN HCL 5 MG CAPSULE 10 MG PO (08:24)
[2023-10-20] MEDS: amLODIPine BESYLATE 5 MG TABLET PO (08:24)
[2023-10-20] MEDS: PANTOPRAZOLE 40 MG TABLET PO (08:24)
[2023-10-20] MEDS: SENNOSIDES 8.6 MG TABLET PO ×2 (08:24→16:48)
[2023-10-20] MEDS: FOLIC ACID 1 MG TABLET PO (08:30)
[2023-10-20 08:38] LABS: Estimated CRCL calculation 80 ml/min; Estimated Glomerular Filt Rate > 60
[2023-10-20 08:43] LABS: Vancomycin Trough 16.1 ug/mL (10.0-20.0)
[2023-10-20] MEDS: VANCOMYCIN 1,500 MG/NS 500 ML 1,500 MG/500 ML BAG 250 MG IVPB (10:02)
--- NOTE | 2023-10-20 12:27 | PM.IMPN ---
Progress Note: A&P Assessment and Plan (1) Pneumonia: Qualifiers: Laterality: right Lung location: upper lobe of lung Pneumonia type: due to unspecified organism Qualified Code(s): J18.9 - Pneumonia, unspecified organism Code(s): J18.9 - Pneumonia, unspecified organism Status: Acute (2) Altered mental status: Qualifiers: Altered mental status type: unspecified Qualified Code(s): R41.82 - Altered mental status, unspecified Code(s): R41.82 - Altered mental status, unspecified Status: Acute Plan Patient presented on 10/15/2023. Presented from [facility]. Associated cough shortness of breath. He has underlying dementia with baseline alert and oriented x2 On ED evaluation WBC normal at 4.9 unremarkable CMP. BNP was elevated at 2230. EKG with AFib. Chest x-ray with bilateral pneumonia versus CHF. Lactic acid normal. Started treatment for pneumonia with ceftriaxone and doxycycline. Swallow evaluation completed. Intermittent AFib with RVR. Currently rate controlled on current medication Confusion/encephalopathy seems to be improving or back to his baseline Perineal cellulitis possible bleeding add vancomycin. CT pelvis unremarkable. Findings consistent with will cellulitis in the area with bloody drainage. Continue current antibiotics. Will need wound care wound Care to consult History of CHF chronic diastolic. Mild acute exacerbation. IV Lasix. Lasix stopped well compensated currently History of COPD Atrial fibrillation Dementia Hypertension Chronic anemia GERD History of intracerebral hemorrhage in the past and hence not a candidate for systemic anticoagulation along with history of recurrent falls. He has left atrial appendage occlusion device in place DVT prophylaxis on Lovenox Disposition: PT OT to see Subjective Date/time seen: 10/20/23 12:27 Interval history: No overnight events. Denies any new complaints. No fever chills. Left perineal area slowing down. Discussed with the nursing staff Review of Systems Review of Systems: All systems reviewed & are unremarkable except as noted in HPI and below Exam Narrative: GENERAL APPEARANCE: Appears to be in no acute distress. Mildly confused HEAD: normocephalic atraumatic ENT: Hearing grossly intact, no nasal discharge NECK: Neck supple, trachea midline. CARDIAC: Normal S1/S2. Irregularly irregular on telemetry No murmurs, rubs, or gallops. No cyanosis or pallor. Extremities are warm and well perfused. LUNGS: Coarse breath sound bilaterally ABDOMEN: BS positive x 4 quadrants. Soft, nondistended, nontender. No guarding or rebound. MSK: No joint tenderness/swelling. PERIPHERAL VASCULAR: Peripheral pulses palpable. Normal perfusion, cap refill <2 seconds. Trace to +1 pedal edema. NEURO: Follows commands. No focal deficits. Oriented to self. SKIN: [place] without lesions or eruptions. Left perineal area with multiple opening strains bloody drainage less edematous and tender to touch Objective Data Vital Signs Vital Signs: Vital Signs - 24 hr 10/19/23 14:00 10/19/23 15:41 10/19/23 15:49 Temperature 97.1 F L Pulse Rate 85 88 87 Respiratory Rate 20 20 20 Blood Pressure 136/91 H Pulse Oximetry 98 Oxygen Delivery Fraction of Inspired Oxygen 10/19/23 16:00 10/19/23 19:41 10/19/23 20:36 Temperature Pulse Rate 99 99 82 Respiratory Rate 20 20 Blood Pressure Pulse Oximetry 98 Oxygen Delivery Room Air Fraction of Inspired Oxygen 21 10/19/23 20:41 10/19/23 20:46 10/19/23 21:04 Temperature 97.3 F L Pulse Rate 82 84 82 Respiratory Rate 20 16 Blood Pressure 142/87 H Pulse Oximetry 96 98 Oxygen Delivery Room Air Fraction of Inspired Oxygen 10/19/23 21:20 10/19/23 20:00 10/20/23 00:00 Temperature Pulse Rate 86 94 89 Respiratory Rate Blood Pressure Pulse Oximetry Oxygen Delivery Fraction of Inspired Oxygen 10/20/23 04:00
[2023-10-20] MEDS: LOSARTAN POTASSIUM 50 MG TABLET 100 MG PO (21:58)
[2023-10-20] MEDS: CEFDINIR 300 MG CAPSULE PO (21:58)
[2023-10-20] MEDS: ATORVASTATIN 10 MG TABLET PO (21:59)
[2023-10-21] VITALS (9 sets, daily range): BP systolic 153; BP diastolic 86; PULSE 74–92; RESP 18–24; TEMP 35.8; O2SAT 95–96
[2023-10-21 06:27] LABS: Basophils Percent Auto 0.6 % (0.2-1.2); Eosinophils Absolute Auto 0.2 K/mm3 (0-0.3); Eosinophils Percent Auto 4.5 % (0-4.4); Hematocrit 37.7 % (42.0-52.0); Hemoglobin 12.9 g/dL (14.0-18.0); Immature Granulocyte Absolute 0.01 K/mm3 (0.00-0.031); Immature Granulocyte Percent A 0.2 % (0-0.5); Immature Platelet Fraction Pct 3.2 % (0.9-11.2); Lymphocytes Absolute Auto 1.65 K/mm3 (0.9-3.2); Lymphocytes Percent Auto 32.3 % (18.3-44.2); Mean Corpuscular HGB Conc 34.2 g/dl (32-36); Mean Corpuscular Hemoglobin 32.2 pg (26-34); Mean Platelet Volume 10.2 fl (7.4-10.4); Monocytes Absolute Auto 0.4 K/mm3 (0.1-0.6); Monocytes Percent Auto 7.2 % (2.6-8.5); Neutrophils Absolute Auto 2.8 K/mm3 (1.3-6.7); Neutrophils Percent Auto 55.2 % (45.5-73.1); Platelet Count Result 139 k/mm3 (150-375); Red Blood Count 4.01 M/mm3 (4.6-6.20); Red Cell Distribution Width 11.7 % (11.5-14.5); White Blood Count 5.1 K/mm3 (4.5-10.0)
[2023-10-21 06:44] LABS: Alanine Aminotransferase 14 U/L (6-50); Albumin Level 3.4 g/dL (3.5-5.1); Alkaline Phosphatase 60 U/L (38-126); Anion Gap 8 mmol/L (4-12); Aspartate Amino Transferase 23 U/L (17-59); Bilirubin,Total 0.7 mg/dL (0.2-1.3); Blood Urea Nitrogen 10 mg/dL (9-20); Calcium 8.8 mg/dL (8.4-10.2); Carbon Dioxide 27 mmol/L (22-30); Chloride 104 mmol/L (98-107); Estimated CRCL calculation 90 ml/min; Estimated Glomerular Filt Rate > 60; Glucose 85 mg/dL (65-110); Magnesium 1.8 mg/dL (1.6-2.3); Potassium 3.4 mmol/L (3.4-5.0); Sodium 139 mmol/L (137-145)
[2023-10-21] MEDS: IPRATROPIUM 0.5 MG/ALBUTEROL SULFATE 2.5 MG AMPUL.NEB 3 ML NEBULIZE ×2 (07:22→11:05)
[2023-10-21] MEDS: FLUTICASONE/SALMETEROL 45-21 MCG INHALER 1 PUFF 2 PUFF INHALATION (07:24)
[2023-10-21] MEDS: PANTOPRAZOLE 40 MG TABLET PO (09:15)
[2023-10-21] MEDS: SENNOSIDES 8.6 MG TABLET PO (09:16)
[2023-10-21] MEDS: ESCITALOPRAM OXALATE 5 MG TABLET PO (09:16)
[2023-10-21] MEDS: amLODIPine BESYLATE 5 MG TABLET PO (09:16)
[2023-10-21] MEDS: FOLIC ACID 1 MG TABLET PO (09:16)
[2023-10-21] MEDS: CEFDINIR 300 MG CAPSULE PO (09:16)
[2023-10-21] MEDS: METOPROLOL TARTRATE 50 MG TAB 100 MG PO (09:16)
[2023-10-21] MEDS: DOXYCYCLINE HYCLATE 100 MG TABLET PO (09:16)
[2023-10-21] MEDS: ASPIRIN 81 MG ENTERIC TABLET PO (09:16)
[2023-10-21] MEDS: TERAZOSIN HCL 5 MG CAPSULE 10 MG PO (09:17)
--- NOTE | 2023-10-21 11:51 | PM.DS ---
DS: Admitting Diagnosis Discharge Date Admitting Diagnosis pneumonia DS: Discharge Diagnosis Discharge Diagnosis (1) Pneumonia: Qualifiers: Laterality: right Lung location: upper lobe of lung Pneumonia type: due to unspecified organism Qualified Code(s): J18.9 - Pneumonia, unspecified organism Code(s): J18.9 - Pneumonia, unspecified organism Status: Acute (2) Altered mental status: Qualifiers: Altered mental status type: unspecified Qualified Code(s): R41.82 - Altered mental status, unspecified Code(s): R41.82 - Altered mental status, unspecified Status: Acute DS: Summary Hospital Course Hospital Course: Patient presented on 10/15/2023. Presented from residential. Associated cough shortness of breath. He has underlying dementia with baseline alert and oriented x2 On ED evaluation WBC normal at 4.9 unremarkable CMP. BNP was elevated at 2230. EKG with AFib. Chest x-ray with bilateral pneumonia versus CHF. Lactic acid normal. Started treatment for pneumonia with ceftriaxone and doxycycline. Swallow evaluation completed. Intermittent AFib with RVR. Currently rate controlled on current medication Confusion/encephalopathy seems to be improving or back to his baseline Perineal cellulitis possible bleeding add vancomycin. CT pelvis unremarkable. Findings consistent with will cellulitis in the area with bloody drainage. Continue current antibiotics. Will need wound care wound Care to consult. This is healing and continue monitor History of CHF chronic diastolic. Mild acute exacerbation. IV Lasix. Lasix stopped well compensated currently History of COPD Atrial fibrillation Dementia Hypertension Chronic anemia GERD History of intracerebral hemorrhage in the past and hence not a candidate for systemic anticoagulation along with history of recurrent falls. He has left atrial appendage occlusion device in place DVT prophylaxis on Lovenox Disposition: PT OT to see and back to baseline. Time Spent with Patient Time attestation: Total time spent providing and/or coordinating discharge services: 35 minutes Exam Narrative: GENERAL APPEARANCE: Appears to be in no acute distress. Mildly confused HEAD: normocephalic atraumatic ENT: Hearing grossly intact, no nasal discharge NECK: Neck supple, trachea midline. CARDIAC: Normal S1/S2. Irregularly irregular on telemetry No murmurs, rubs, or gallops. No cyanosis or pallor. Extremities are warm and well perfused. LUNGS: Coarse breath sound bilaterally ABDOMEN: BS positive x 4 quadrants. Soft, nondistended, nontender. No guarding or rebound. MSK: No joint tenderness/swelling. PERIPHERAL VASCULAR: Peripheral pulses palpable. Normal perfusion, cap refill <2 seconds. Trace to +1 pedal edema. NEURO: Follows commands. No focal deficits. Oriented to self. SKIN: [place] without lesions or eruptions. Left perineal area with multiple opening strains bloody drainage less edematous and tender to touch DS: Data Data Completed and Pending Labs on day of discharge: Labs from last 24 hours 10/21/23 06:05 WBC 5.1 RBC 4.01 L Hgb 12.9 L Hct 37.7 L MCV 94.0 MCH 32.2 MCHC 34.2 RDW 11.7 Plt Count 139 L MPV 10.2 Immature Gran % (Auto) 0.2 Neut % (Auto) 55.2 Lymph % (Auto) 32.3 [place] % (Auto) 7.2 Eos % (Auto) 4.5 H Baso % (Auto) 0.6 Lymph # (Auto) 1.65 [place] # (Auto) 0.4 Eos # (Auto) 0.2 Baso # (Auto) 0.0 Abs Immat Gran (auto) 0.01 Absolute Neuts (auto) 2.8 Absolute Nucleated RBC 0.000 Nucleated RBC % 0.0 % Immature Plt Fraction 3.2 Sodium 139 Potassium 3.4 Chloride 104 Carbon Dioxide 27 Anion Gap 8 BUN 10 D Creatinine 0.70 Estim Creat Clear Calc 90 Estimated GFR > 60 Glucose 85 Calcium 8.8 Magnesium 1.8 Total Bilirubin 0.7 AST 23 ALT 14 Alkaline Phosphatase 60 Total Protein 6.0 L Albumin 3.4 L Imaging Radiologist's impression: ITS Impressions [place]
== END 2023-10-21 15:23 | DRG 193 ==
LOC: ANHED 15:34 → ANH3MEDSUR 16:10
PROVIDERS: Nurse Practitioner Family; Admitting Provider Student in an Organized Health Care Education/Training Program; Emergency Provider Preventive Medicine Aerospace Medicine; PCP Family Medicine; Visit Provider Internal Medicine
DX: J18.9 Pneumonia, unspecified organism (principal); I50.33 Acute on chronic diastolic (congestive) heart failure; I48.20 Chronic atrial fibrillation, unspecified; J44.0 Chronic obstructive pulmonary disease with (acute) lower respiratory infection; L03.315 Cellulitis of perineum; I11.0 Hypertensive heart disease with heart failure; I50.9 Heart failure, unspecified; J44.89 Other specified chronic obstructive pulmonary disease; D69.6 Thrombocytopenia, unspecified; E78.5 Hyperlipidemia, unspecified; E55.9 Vitamin D deficiency, unspecified; K21.9 Gastro-esophageal reflux disease without esophagitis; N40.0 Benign prostatic hyperplasia without lower urinary tract symptoms; B39.9 Histoplasmosis, unspecified; F03.90 Unspecified dementia, unspecified severity, without behavioral disturbance, psychotic disturbance, mood disturbance, and anxiety; F41.9 Anxiety disorder, unspecified; Z86.73 Personal history of transient ischemic attack (TIA), and cerebral infarction without residual deficits; Z79.82 Long term (current) use of aspirin; Z87.891 Personal history of nicotine dependence
CPT/HCPCS: 36415; 71045; 71046; 72192; 80048; 80053; 80202; 82565; 82803; 83605; 83735; 83880; 84145; 85025; 85055; 87040; 87641; 92610; 92611; 93005; 94640; 96365; 96367; 97161; 97165; 99285; A9270; G0378; J0696; J1650; J1940; J3370; J3475

== ENCOUNTER 2024-04-01 13:58 | Inpatient (IN) | payer MEDICARE, SELFPAY ==
[2024-04-01] VITALS (19 sets, daily range): BP systolic 55–152; BP diastolic 29–91; PULSE 43–80; RESP 12–20; TEMP 36.3–36.7; O2SAT 96–99; BMI 24.9
--- NOTE | ~2024-04-01 | XR_ITS ---
CHEST RADIOGRAPH CLINICAL HISTORY: Syncope . COMPARISON: 10/18/2023 and 10/15/2023 TECHNIQUE: Single portable view of the chest. FINDINGS The cardiomediastinal silhouette is enlarged, unchanged. Increased interstitial markings are identified bilaterally, findings suggesting mild pulmonary vascul ar congestion. The remainder the lungs are clear. Visualized osseous structures and soft tissues are unremarkable. IMPRESSION: Mild pulmonary vascular congestion, without focal infiltrate or effusion. Reviewed, dictated and finalized at location A. LATION APPLICATOR
--- NOTE | ~2024-04-01 | CT_ITS ---
EXAMINATION: CT brain wo con DATE: 04/01/2024 15:14 INDICATION: Syncope. TECHNIQUE: Computed tomography (CT) of the head was performed without intravenous contrast. The mA wa s adjusted according to patient size. Iterative reconstruction technique was employed. The dose-lengt h product was 605.33 mGy-cm. COMPARISON: Head CT 09/16/2023 FINDINGS: There are old lacunar infarcts in the margaret and bilateral caudate nuclei. There are scattere d areas of low attenuation in the cerebral white matter. There is no intracranial hemorrhage, acute i nfarction, or abnormal intracranial mass lesion. The ventricles are normal in size. There is mild muc osal thickening in the paranasal sinuses. There are likely changes of ocular lens replacement surgeri es. There is a small left mastoid effusion. IMPRESSION: 1. Old lacunar infarcts in the margaret and bilateral caudate nuclei. 2. Mild nonspecific cerebral white matter disease, which likely represents chronic small vessel ische stella disease. Reviewed, dictated and finalized at location A. ICE SUPERVISOR IMPRESSION: 1. Old lacunar infarcts in the margaret and bilateral caudate nuclei. 2. Mild nonspecific cerebral white matter disease, which likely represents policy cancellation clerk reuben small vessel ischemic disease.
--- NOTE | 2024-04-01 14:05 | ECG_ITS ---
Test Date: 2024-04-01 14:18:34 Measurements Intervals [place] Rate: 25 P: 0 KS: 0 QRS: 27 QRSD: 83 T: 45 QT: 448 QTc: 290 Interpretive Statements ATRIAL FIBRILLATION WITH SLOW VENTRICULAR RESPONSE NONSPECIFIC T-WAVE ABNORMALITY ABNORMAL RHYTHM ECG WARNING: DATA QUALITY MAY AFFECT INTERPRETATION Compared to ECG 10/15/2023 11:28:34 T-wave abnormality now present Myocardial infarct finding no longer present Electronically Signed On 04-01-2024 14:47:40 DIRECTOR POWER by Bakari White M.D.
--- NOTE | 2024-04-01 14:09 | ED.GENADULT ---
HPI - General Adult General Chief complaint: Syncope Stated complaint: syncope History of Present Illness HPI narrative: 73-year-old male presenting to the emergency department for evaluation after having a near syncopal episode today. Patient had been incontinent to stool and has they getting him onto the shower chair he had a near syncopal episode in the lowered to the ground. Patient denies any fall or injury. Patient does not recall the event. Patient does have history of dementia is at [facility] Related Data Home Medications ?Medication ?Instructions ?Recorded ?Confirmed ?Last Taken ?Type metoprolol tartrate 50 mg tablet 100 mg PO Q12HR 01/25/21 04/01/24 Unknown History terazosin 10 mg capsule 10 mg PO QAM 06/09/21 04/01/24 Unknown History Lactobacillus acidoph-L.bulgaricus 1 tablet PO BID 04/12/23 04/01/24 Unknown History 1 million cell tablet acetaminophen 325 mg tablet 650 mg PO Q4H PRN Pain (Scale 04/12/23 04/01/24 Unknown History Score 1-3) albuterol sulfate 2.5 mg/3 mL 2.5 mg inhalation Q6H PRN Wheezing 04/12/23 04/01/24 Unknown History (0.083 %) solution for nebulization aspirin 81 mg tablet,delayed 81 mg PO DAILY 04/12/23 04/01/24 Unknown History release atorvastatin 10 mg tablet 10 mg PO HS 04/12/23 04/01/24 Unknown History fluticasone 100 mcg-salmeterol 50 1 ea inhalation QA 04/12/23 04/01/24 Unknown History mcg/dose blistr powdr for inhalation (Rocioela Inhub) folic acid 1 mg tablet 1 mg PO QAM 04/12/23 04/01/24 Unknown History nystatin 100,000 unit/gram topical 1 applic topical Q12H PRN reddness 04/12/23 04/01/24 Unknown History powder omeprazole 20 mg capsule,delayed 20 mg PO QAM 04/12/23 04/01/24 Unknown History release ramelteon 8 mg tablet 8 mg PO QHS 04/12/23 04/01/24 Unknown History sennosides 8.6 mg tablet (senna) 8.6 mg PO BID 04/12/23 04/01/24 Unknown History amlodipine 5 mg tablet 5 mg PO QAM 04/13/23 04/01/24 Unknown History cholecalciferol (vitamin D3) 125 125 mcg PO EVERY OTHER DAY 10/15/23 04/01/24 Unknown History mcg (5,000 unit) capsule escitalopram oxalate 5 mg tablet 5 mg PO DAILY depression 10/15/23 04/01/24 Unknown History losartan 50 mg tablet (Cozaar) 100 mg PO HS 10/15/23 04/01/24 Unknown History Allergies Allergy/AdvReac Type Severity Reaction Status Date / Time Penicillins AdvReac Unknown Unknown Verified 04/01/24 17:05 Review of Systems Review of Systems: All systems reviewed & are unremarkable except as noted in HPI and below [facility] Past Medical History Medical History (Updated 04/01/24 @ 16:14 by Corinna Ramos PA-C) Heart failure with preserved ejection fraction Gastroesophageal reflux disease Retinal histoplasmosis Chronic obstructive pulmonary disease Benign prostatic hyperplasia Choledocholithiasis Anxiety Chronic anemia Alcohol abuse Atrial fibrillation (07/2019) Acute cholecystitis treated with antibiotic therapy, no cholecystectomy due to being a poor surgical candidate 10/08/2019 - returned to hospital with intra-abdominal abscess in the gallbladder fossa and extending around liver - thought to be related to gallbladder perforation. Treated with antibiotics and percutaneous drainage x 3. History of TIAs Hyperlipidemia Vitamin D deficiency Essential hypertension Dementia Surgical History Surgical History (Updated 04/01/24 @ 15:34 by Corinna Ramos PA-C) History of vasectomy History of bilateral cataract extraction History of cholecystectomy Family History Family History Sibling Polio Father Lung cancer Mother Hypertension Social History Social History (Updated 04/01/24 @ 16:11 by Corinna Ramos PA-C) Social History: Surrogate medical decision maker: Code status: Smoking packs per day: 1 Smoking cigarettes per day: 20.0 Years smoked: 64 Smoking pack-years: 64.00 Smoking status: Never smoker Tobacco type: cigarettes Second hand tobacco smoke exposure: Yes Smoking end date: 10/08/19 Alcohol intake: former Drinks per week: 21 Substance use: never Substance use type: does not use Other substance usage details: Last drink was 2 years ago. 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 EYES: PERRLA/EOMI, conjunctivae clear. NOSE: Normal no drainage EARS:TMS clear with good light reflex. THROAT: Pharynx clear, no exudate. NECK: Supple. No adenopathy, no masses. RESPIRATORY: Airway patent, respirations nonlabored. Clear to auscultation bilaterally, no rales, rhonchi, wheezing. CARDIOVASCULAR: Regular rate and rhythm without murmurs rubs or gallops. ABDOMINAL: Soft, nontender, nondistended, normal bowel sounds MUSCULOSKELETAL: Moves all extremities. Strength/ROM intact, No edema, No calf tenderness. NEURO: Alert. Cranial nerves II through XII intact. Grossly intact SKIN: Warm, dry. Normal Color Course Vital Signs Vital signs: Vital Signs Temperature 97.4 F L 04/01/24 13:59 Pulse Rate 70 04/01/24 13:59 Respiratory Rate 16 04/01/24 13:59 Blood Pressure 99/66 L 04/01/24 13:59 Pulse Oximetry 97 04/01/24 13:59 Oxygen Delivery Room Air 04/01/24 13:59 Temperature 97.5 F L 04/01/24 16:50 Pulse Rate 70 04/01/24 16:50 Respiratory Rate 20 04/01/24 16:50 Blood Pressure 132/89 04/01/24 16:50 Pulse Oximetry 99 04/01/24 16:50 Oxygen Delivery Room Air 04/01/24 13:59 Medical Decision Making [facility] Narrative Medical decision making narrative: 73-year-old male presents emergency department for evaluation for diarrhea and syncope. Patient was profoundly orthostatic when we sat him up. Patient did respond well to L of IV fluids but patient was still need to be admitted. Patient was afebrile with no leukocytosis and a stable hemoglobin of 13.9. No significant abnormalities on the patient's CMP patient was negative for influenza RSV and for COVID. Head CT was negative for any acute intracranial abnormality. Chest x-ray shows mild pulmonary vascular congestion with no focal infiltrate. Patient's blood pressure and heart rate did improve with IV fluids. Case was discussed with hospitalist patient was accepted for admission. Differential Diagnosis Differential Diagnosis: Colitis, diverticulitis, dehydration, syncope, near syncope, cardiac arrhythmia Vital Signs Vital Signs: Vital Signs Temperature 97.4 F L 04/01/24 13:59 Pulse Rate 70 04/01/24 13:59 Respiratory Rate 16 04/01/24 13:59 Blood Pressure 99/66 L 04/01/24 13:59 Pulse Oximetry 97 04/01/24 13:59 Oxygen Delivery Room Air 04/01/24 13:59 Temperature 97.5 F L 04/01/24 16:50 Pulse Rate 70 04/01/24 16:50 Respiratory Rate 20 04/01/24 16:50 Blood Pressure 132/89 04/01/24 16:50 Pulse Oximetry 99 04/01/24 16:50 Oxygen Delivery Room Air 04/01/24 13:59 Lab Data Lab results reviewed: Yes I reviewed the patient's lab results. 04/01/24 14:18 04/01/24 14:18 Labs: Lab Results 04/01/24 Range/Units 14:18 WBC 6.0 (4.5-10.0) K/mm3 RBC 4.35 L (4.6-6.20) M/mm3 Hgb 13.9 L (14.0-18.0) g/dL Hct 41.7 L (42.0-52.0) % MCV 95.9 (80-100) fl MCH 32.0 (26-34) pg MCHC 33.3 (32-36) g/dl RDW 12.1 (11.5-14.5) % Plt Count 161 (150-375) k/mm3 MPV 10.3 (7.4-10.4) fl Immature Gran % (Auto) 0.2 (0-0.5) % Neut % (Auto) 68.6 (45.5-73.1) % Lymph % (Auto) 21.8 (18.3-44.2) % [place] % (Auto) 6.9 (2.6-8.5) % Eos % (Auto) 2.0 (0-4.4) % Baso % (Auto) 0.5 (0.2-1.2) % Lymph # (Auto) 1.30 (0.9-3.2) K/mm3 [place] # (Auto) 0.4 (0.1-0.6) K/mm3 Eos # (Auto) 0.1 (0-0.3) K/mm3 Baso # (Auto) 0.0 (0.0-0.1) K/mm3 Abs Immat Gran (auto) 0.01 (0.00-0.031) K/mm3 Absolute Neuts (auto) 4.1 (1.3-6.7) K/mm3 Absolute Nucleated RBC 0.000 (0.0-0.012) K/mm3 Nucleated RBC % 0.0 (0.0-0.2) % PT 14.0 (11.1-14.7) Seconds INR 1.1 APTT 26.1 (22.3-36.8) Seconds Sodium 140 (137-145) mmol/L Potassium 3.5 (3.4-5.0) mmol/L Chloride 110 H (98-107) mmol/L Carbon Dioxide 30 (22-30) mmol/L Anion Gap 0 L (4-12) mmol/L BUN 15 D (9-20) mg/dL Creatinine 1.20 (0.7-1.3) mg/dL Estim Creat Clear Calc 50 ml/min Estimated GFR 60 (59 - ) Glucose 135 H (65-110) mg/dL Calcium 8.8 (8.4-10.2) mg/dL Total Bilirubin 1.0 (0.2-1.3) mg/dL AST 19 (17-59) U/L ALT 11 (6-50) U/L Alkaline Phosphatase 59 (38-126) U/L Total Protein 6.0 L (6.3-8.2) g/dL Albumin 3.7 (3.5-5.1) g/dL Influenza A (RT-PCR) Negative (Negative) Influenza B (RT-PCR) Negative (Negative) RSV (RT-PCR) Negative (Negative) SARS-CoV-2 RNA (RT-PCR) Negative (Negative) Imaging Data Radiologist's impression: Impressions Chest X-Ray 04/01/24 15:26 IMPRESSION: Mild pulmonary vascular congestion, without focal infiltrate or effusion. Head CT 04/01/24 15:26 IMPRESSION: 1. Old lacunar infarcts in the [place] and bilateral caudate nuclei. 2. Mild nonspecific cerebral white matter disease, which likely represents chronic small vessel ischemic disease. Critical Care Time Critical Care Time Critical Care Time: Yes Total Critical Care Time: 35 Discharge Plan Discharge Clinical Impression: Syncope and collapse, Orthostatic hypotension Patient Disposition: Still a Patient Condition: Serious
[2024-04-01] MEDS: SODIUM CHLORIDE 0.9% IV 1,000 ML 999 ML IV CONT (14:25)
[2024-04-01 14:26] LABS: Basophils Percent Auto 0.5 % (0.2-1.2); Eosinophils Absolute Auto 0.1 K/mm3 (0-0.3); Hematocrit 41.7 % (42.0-52.0); Hemoglobin 13.9 g/dL (14.0-18.0); Immature Granulocyte Absolute 0.01 K/mm3 (0.00-0.031); Immature Granulocyte Percent A 0.2 % (0-0.5); Lymphocytes Percent Auto 21.8 % (18.3-44.2); Mean Corpuscular HGB Conc 33.3 g/dl (32-36); Mean Corpuscular Volume 95.9 fl (80-100); Mean Platelet Volume 10.3 fl (7.4-10.4); Monocytes Absolute Auto 0.4 K/mm3 (0.1-0.6); Monocytes Percent Auto 6.9 % (2.6-8.5); Neutrophils Absolute Auto 4.1 K/mm3 (1.3-6.7); Neutrophils Percent Auto 68.6 % (45.5-73.1); Platelet Count Result 161 k/mm3 (150-375); Red Blood Count 4.35 M/mm3 (4.6-6.20); Red Cell Distribution Width 12.1 % (11.5-14.5)
--- NOTE | 2024-04-01 14:34 | PC.NURSE ---
Dr. Linda informed of hypotension with dizziness upon standing that resolved once lying flat.
[2024-04-01 14:35] LABS: Alanine Aminotransferase 11 U/L (6-50); Albumin Level 3.7 g/dL (3.5-5.1); Alkaline Phosphatase 59 U/L (38-126); Anion Gap 0 mmol/L (4-12); Aspartate Amino Transferase 19 U/L (17-59); Blood Urea Nitrogen 15 mg/dL (9-20); Calcium 8.8 mg/dL (8.4-10.2); Carbon Dioxide 30 mmol/L (22-30); Chloride 110 mmol/L (98-107); Estimated CRCL calculation 50 ml/min; Estimated Glomerular Filt Rate 60; Glucose 135 mg/dL (65-110); Potassium 3.5 mmol/L (3.4-5.0); Sodium 140 mmol/L (137-145)
[2024-04-01 14:38] LABS: INR 1.1; Partial Thromboplastin Time 26.1 Seconds (22.3-36.8)
[2024-04-01 15:05] LABS: Influenza A QL RT-PCR Negative (Negative); Influenza B QL RT-PCR Negative (Negative); RSV RNA, RT-PCR Negative (Negative); SARS-CoV-2 RNA PCR Negative (Negative)
--- NOTE | 2024-04-01 15:30 | P.HP_ITS ---
H&P: HPI History of Present Illness Date/Time: 04/01/24 16:15 Chief Complaint: Syncope. Narrative: This is a 73-year-old male with history of stroke, intracranial hemorrhage, dementia, atrial fibrillation, heart failure with preserved ejection fraction, hypertension, hyperlipidemia, chronic obstructive pulmonary disease, and other comorbidities who presented to the emergency department via EMS from [facility] for evaluation after a syncopal episode. He is not the best historian due to underlying dementia and some of the following is obtained via a review of his electronic medical records. It is my understanding that he had a brief syncopal episode when he was being transferred to the shower chair not long prior to arrival. He was lowered to the ground and sustained no injuries. The patient does not remember the incident and can provide no further details. 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 In the ED: Blood pressure was 99/66 on arrival with otherwise stable vital signs. He was profoundly orthostatic with a drop in blood pressure to 55/29 upon standing. CMP and CBC were pretty unremarkable and stable compared to prior labs. He was negative for influenza, RSV, and COVID. Brain CT was without acute findings and chest x-ray revealed mild pulmonary vascular congestion. EKG showed atrial fibrillation with slow ventricular response and nonspecific T-wave abnor malities. He was given normal saline 1 L and is being admitted in this setting for close monitoring and further workup. Review of Systems Review of Systems: Unable to be obtained accurately as he suffers from pretty significant short- term memory loss. [facility] Past Medical History Medical History Heart failure with preserved ejection fraction Gastroesophageal reflux disease Retinal histoplasmosis Chronic obstructive pulmonary disease Benign prostatic hyperplasia Choledocholithiasis Anxiety Chronic anemia Alcohol abuse Atrial fibrillation (07/2019) Acute cholecystitis treated with antibiotic therapy, no cholecystectomy due to being a poor surgical candidate 10/08/2019 - returned to hospital with intra-abdominal abscess in the gallbladder fossa and extending around liver - thought to be related to gallbladder perforation. Treated with antibiotics and percutaneous drainage x 3. History of TIAs Hyperlipidemia Vitamin D deficiency Essential hypertension Dementia Surgical History Surgical History History of vasectomy History of bilateral cataract extraction History of cholecystectomy Family History Family History Sibling Polio Father Lung cancer Mother Hypertension Social History Social History (Updated 04/01/24 @ 20:23 by Corinna Ramos PA-C) Social History: Surrogate medical decision maker: Latha Redman, daughter. Code status: Full code. Smoking packs per day: 1 Smoking cigarettes per day: 20.0 Years smoked: 64 Smoking pack-years: 64.00 Smoking status: Former smoker Tobacco type: cigarettes Second hand tobacco smoke exposure: Yes Smoking end date: 10/20/19 Additional smoking assessment comments: recalled from previous hx Alcohol intake: former Drinks per week: 21 Substance use: never Substance use type: does not use Other substance usage details: Last drink was 2 years ago. 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 Spiritual care concerns: No Agree to blood products: Yes Meds Home Medications and Allergies Home Medications ?Medication ?Instructions ?Recorded ?Confirmed ?Type metoprolol tartrate 50 mg tablet 100 mg PO Q12HR 01/25/21 04/01/24 History terazosin 10 mg capsule 10 mg PO QAM 06/09/21 04/01/24 History Lactobacillus acidoph-L.bulgaricus 1 tablet PO BID 04/12/23 04/01/24 History 1 million cell tablet acetaminophen 325 mg tablet 650 mg PO Q4H PRN Pain (Scale 04/12/23 04/01/24 History Score 1-3) albuterol sulfate 2.5 mg/3 mL 2.5 mg inhalation Q6H PRN Wheezing 04/12/2303/09 History (0.083 %) solution for nebulization aspirin 81 mg tablet,delayed 81 mg PO DAILY 04/12/23 04/01/24 History release atorvastatin 10 mg tablet 10 mg PO HS 04/12/23 04/01/24 History fluticasone 100 mcg-salmeterol 50 1 ea inhalation QAM 04/12/23 04/01/24 History mcg/dose blistr powdr for inhalation (Rocioela Inhub) folic acid 1 mg tablet 1 mg PO QAM 04/12/23 04/01/24 History nystatin 100,000 unit/gram topical 1 applic topical Q12H PRN reddness 04/12/23 04/01/24 History powder omeprazole 20 mg capsule,delayed 20 mg PO QAM 04/12/23 04/01/24 History release ramelteon 8 mg tablet 8 mg PO QHS 04/12/23 04/01/24 History sennosides 8.6 mg tablet (senna) 8.6 mg PO BID 04/12/23 04/01/24 History amlodipine 5 mg tablet 5 mg PO QAM 04/13/23 04/01/24 History cholecalciferol (vitamin D3) 125 125 mcg PO EVERY OTHER DAY 10/15/23 04/01/24 History mcg (5,000 unit) capsule escitalopram oxalate 5 mg tablet 5 mg PO DAILY depression 10/15/23 04/01/24 History losartan 50 mg tablet (Cozaar) 100 mg PO HS 10/15/23 04/01/24 History cefdinir 300 mg capsule 300 mg PO Q12HR #2 caps 10/21/23 04/01/24 Rx doxycycline hyclate 100 mg tablet 100 mg PO Q12HR #2 tabs 10/21/23 04/01/24 Rx Allergies Allergy/AdvReac Type Severity Reaction Status Date / Time Penicillins AdvReac Unknown Unknown Verified 04/01/24 17:05 Vital Signs Vital Signs - 24 hr 04/01/24 13:59 04/01/24 14:00 04/01/24 14:20 Temperature 97.4 F L Pulse Rate 70 59 L 55 L Respiratory Rate 16 Blood Pressure 99/66 L 89/74 L Pulse Oximetry 97 Oxygen Delivery Room Air 04/01/24 14:21 04/01/24 14:23 Temperature Pulse Rate 43 L 63 Respiratory Rate Blood Pressure 80/67 L 55/29 L Pulse Oximetry Oxygen Delivery Exam Narrative: General: Chronically ill-appearing gentleman the semi-Bird position in bed in no distress. Weight: 83.3 kg. BMI: 24.9. HEENT: Normocephalic, atraumatic. PERRL, EOMI. Sclera anicteric. Oral mucosa moist. Poor dentition. Neck: Supple. Respiratory: Lungs are clear to auscultation bilaterally. Cardiovascular: Regular rate and rhythm with S1-S2. Gastrointestinal: Abdomen is soft, nontender, and nondistended with positive bowel sounds. Skin: Warm and dry. No rash or lesions on limited exam. Extremities: No cyanosis, clubbing, or significant edema. Radial and pedal pulses intact. Neurological: Alert to self. Cranial nerves 2-12 are grossly intact. No facial asymmetry. No gross focal deficits to casual conversation. Psychiatric: Pleasantly confused and cooperative. H&P: Results Labs Labs: Short CBC 04/01/24 Range/Units 14:18 WBC 6.0 (4.5-10.0) K/mm3 Hgb 13.9 L (14.0-18.0) g/dL Hct 41.7 L (42.0-52.0) % Plt Count 161 (150-375) k/mm3 BMP 04/01/24 14:18 Sodium 140 Potassium 3.5 Chloride 110 H Carbon Dioxide 30 BUN 15 D Creatinine 1.20 Glucose 135 H Calcium 8.8 Liver Function 04/01/24 Range/Units 14:18 Total Bilirubin 1.0 (0.2-1.3) mg/dL AST 19 (17-59) U/L ALT 11 (6-50) U/L Alkaline Phosphatase 59 (38-126) U/L Albumin 3.7 (3.5-5.1) g/dL Imaging Chest X-Ray 04/01/24 15:26 IMPRESSION: 1. Mild pulmonary vascular congestion, without focal infiltrate or effusion. Head CT 04/01/24 15:26 IMPRESSION: 1. Old lacunar infarcts in the margaret and bilateral caudate nuclei. 2. Mild nonspecific cerebral white matter disease, which likely represents chronic small vessel ischemic disease. Assessment and Plan Assessment and plan (1) Syncope: Qualifiers: Syncope type: unspecified Qualified Code(s): R55 - Syncope and collapse Code(s): R55 - Syncope and collapse Status: Acute (2) Orthostatic hypotension: Code(s): I95.1 - Orthostatic hypotension Status: Acute (3) Atrial fibrillation with slow ventricular response: Code(s): I48.91 - Unspecified atrial fibrillation Status: Acute (4) Essential hypertension: Code(s): I10 - Essential (primary) hypertension Status: Chronic (5) Heart failure with preserved ejection fraction: Code(s): I50.30 - Unspecified diastolic (congestive) heart failure Status: Acute (6) Benign prostatic hyperplasia: Code(s): N40.0 - Benign prostatic hyperplasia without lower urinary tract symptoms Status: Acute (7) Chronic obstructive pulmonary disease: Code(s): J44.9 - Chronic obstructive pulmonary disease, unspecified Status: Acute Plan The patient presented to the emergency department for evaluation after syncopal episode as detailed in HPI. Labs, imaging, EKG, and all reports were personally reviewed. Blood pressures were in the upper 90s systolic on arrival to the ED and orthostatic vital signs revealed a significant drop in his systolic pressures upon standing. It is likely that orthostatic hypotension is the cause of the syncopal episode; it appears that he has a history of orthostasis. His heart rate has ranged from the upper 30s to low 70s and he will be monitored on telemetry to rule out cardiac dysrhythmia, sinus pauses, etc.. Hold blood pressure medications for now as well as terazosin. No acute issues with regards to COPD. Volume status is euvolemic. All of his home medications will be reviewed and resumed as appropriate. Findings and treatment plan were discussed with the patient. Questions were solicited and answered to satisfaction. The patient's medical management will be taken over by the hospitalist team in a.m. Quality VTE Prophylaxis VTE prophylaxis: mechanical ordered If No VTE Prophylaxis Answer both mechanical and pharmacologic: Reason no pharmacologic proph: medical contraindication (fall risk) Hospitalist MIPS Advance Care Plan I have confirmed that the patient's Advanced Care Plan is present, code status is documented, or surrogate decision maker is listed in patient medical record.: Yes Medication Reconciliation I have utilized all available resources to obtain, update and review the patients current medications (includes all prescriptions, OTC, herbals, cannabis, and nutritional supplements).: Yes
--- NOTE | 2024-04-01 16:20 | PC.NURSE ---
1445: Straight cath attempted no urine output noted. Pt bladder scan rsults zero urine in bladder. Dr. Linda informed
--- NOTE | 2024-04-01 16:36 | PC.NURSE ---
RN called pts daughter Luba @ [phone] informed of admission to 202. Pt update given
--- NOTE | 2024-04-01 16:56 | ADMGEN ---
This patient, Lloyd Redman, was admitted to IMU Room 202-01@ 1640. Patient oriented to hospital policies and general routines including ID bracelet, bed and alarms, visiting hours, pain management, procedures, bathroom and other care routines, personal items, smoking policy, room service/diet, and visiting hours. pt oriented to self only- monitor SR 70's
[2024-04-01 20:56] LABS: Add Urine Microscopic? YES; Appearance Urine Cloudy (Clear); Bacteria Urine None Seen /hpf; Bilirubin Urine 1+ (Negative); Blood Urine Negative (Negative); Color Urine Dark Yellow (Yellow); Glucose Urine UA Negative (Negative); Ketones Urine Trace mg/dL (Negative); Leukocyte Esterase Ur 1+ LEU/UL (Negative); Need Manual Microscopic Reviewed; Nitrate Urine Negative (Negative); Protein Urine 1+ mg/dL (Negative); RBC Urine 0-2 /hpf (0-2); Specific Grav Ur 1.024 (1.001-1.035); Squamous Epithelial Cell Urine Occasional /hpf (Few); WBC Urine 0-5 /hpf (0-3)
[2024-04-01] MEDS: ATORVASTATIN 10 MG TABLET PO (21:03)
[2024-04-02] VITALS (20 sets, daily range): BP systolic 110–157; BP diastolic 74–97; PULSE 72–120; RESP 16–22; TEMP 36.3–37.2; O2SAT 94–99
--- NOTE | 2024-04-02 | ECHO_ITS ---
Patient Info Name: Lloyd Redman Age: 73 years : 1950 Gender: Male Ht: 72 in Wt: 182 lbs BSA: 2.05 m2 HR: 96 bpm BP: 152 / 86 mmHg Technical Quality: Fair Exam Date: 04/02/2024 2:29 PM Site Location: Exam Location: Echo Lab Patient Status: Inpatient Admit Date: 04/01/2024 Staff Ordering Physician: Taryn Anderson Engineering Test Specialist: Torri Holden RDCS Attending Provider: Taryn Anderson Referring Physician: Justin HILLS; Exam Type: CA echo doppler color flow Study Info Complete two-dimensional, color flow and Doppler transthoracic echocardiogram is performed. Summary 1. Complete two-dimensional, color flow and Doppler transthoracic echocardiogram is performed. 2. The left ventricle is normal in size and systolic function. There is mild eccentric left ventricular hypertrophy. The left ventricular ejection fraction is visually estimated to be 55-60%. 3. There is grade 3 diastolic dysfunction. 4. The right ventricle is normal in size and systolic function. 5. The left atrium is severely dilated. 6. The right atrium is dilated. 7. The aortic root at the level of the sinus of Valsalva is dilated measuring 4.1 cm in diameter. Left Ventricle The left ventricle is normal in size and systolic function. There is mild eccentric left ventricular hypertrophy. The left ventricular ejection fraction is visually estimated to be 55-60%. There is grade 3 diastolic dysfunction. Right Ventricle The right ventricle is normal in size and systolic function. Left Atria The left atrium is severely dilated. Right Atria The right atrium is dilated. Atrial Septum The atrial septum visually appears intact. Aortic Valve The aortic valve is sclerotic and trileaflet but opens well. There is no aortic regurgitation. Pulmonic Valve The pulmonic valve is grossly normal. There is trace pulmonic valve regurgitation. Mitral Valve The mitral valve leaflets are sclerotic with mitral annular calcification. There is no mitral regurgitation. Tricuspid Valve The tricuspid valve is grossly normal. There is trace tricuspid regurgitation. Pericardium/Pleural There is no pericardial effusion in the available views. Inferior Vena Cava Normal inferior vena cava with >50% collapse upon inspiration consistent with normal right atrial pressure, 3 mmHg. Aorta The aortic root at the level of the sinus of Valsalva is dilated measuring 4.1 cm in diameter. Left Ventricular Outflow Tract Name Value Normal LVOT 2D LVOT Diameter 2.4 cm LVOT Doppler LVOT Peak Gradient 2 mmHg LVOT Mean Gradient 1 mmHg LVOT VTI 14 cm LVOT VTI/AV VTI Ratio 0.7 LVOT Stroke Volume 63 ml LVOT CO 5.4 l/min LVOT CI 2.6 l/min/m2 Pulmonic Valve Name Value Normal PV Doppler PV Peak Gradient 2 mmHg PV Regurgitation Doppler ME Peak End Diastolic Velocity 132 cm/s Mitral Valve Name Value Normal MV Doppler MV Decel Rankin 738 cm/s2 MV PHT 43 ms MV Area (PHT) 5.1 cm2 4.0-5.0 MV Diastolic Function MV E Peak Velocity 109 cm/s MV A Peak Velocity 23 cm/s MV E/A 4.7 MV Decel Time 148 ms MV Annular TDI MV E/e' (Septal) 16.0 <=8.0 MV E/e' (Lateral) 11.1 <=8.0 MV E/e' (Average) 13.6 Tricuspid Valve Name Value Normal Estimated PAP/RSVP RA Pressure 3 mmHg <=5 Aortic Valve Name Value Normal AV Doppler AV Peak Velocity 94 cm/s AV Peak Gradient 4 mmHg AV Mean Gradient 2 mmHg AV VTI 19 cm AV Area (Cont Eq VTI) 3.4 cm2 >=3.0 AV Area (Cont Eq Teddy) 3.6 cm2 AV Regurgitation 2D LVOT Area 4.7 cm2 Ventricles Name Value Normal LV Dimensions 2D/MM IVS Diastolic Thickness (2D) 1.1 cm 0.6-1.0 LVID Diastole (2D) 5.6 cm 4.2-5.8 LVIW Diastolic Thickness (2D) 1.1 cm 0.6-1.0 LVID Systole (2D) 4.4 cm 2.5-4.0 LVOT Diameter 2.4 cm LV Mass (2D Cubed) 245.61 g 88.00-224.00 LV Mass Index (2D Cubed) 120 g/m2 49-115 Relative Wall Thickness (2D) 0.37 LV Fractional Shortening/Ejection Fraction 2D/MM LV Fractional Shortening (2D) 20 % 25-43 LV EF (2D Teicholz) 41 % 52-72 LV Diastolic Volume (4C MOD) 89 ml LV EF (4C MOD) 54 % LV Diastolic Length (4C) 6.9 cm LV Systolic Length (4C) 6.4 cm LV Stroke Volume (4C MOD) 48 ml Atria Name Value Normal LA Dimensions LA Volume (4C A-L) 108 ml LA Volume (BP A-L) 112 ml RA Dimensions RA Area (4C) 21.3 cm2 <=18.0 Report Signatures
[2024-04-02 05:10] LABS: Hematocrit 38.5 % (42.0-52.0); Immature Platelet Fraction Pct 3.8 % (0.9-11.2); Mean Corpuscular HGB Conc 33.8 g/dl (32-36); Mean Corpuscular Hemoglobin 32.1 pg (26-34); Mean Corpuscular Volume 95.1 fl (80-100); Mean Platelet Volume 10.7 fl (7.4-10.4); Platelet Count Result 124 k/mm3 (150-375); Red Blood Count 4.05 M/mm3 (4.6-6.20)
[2024-04-02 05:25] LABS: Anion Gap 1 mmol/L (4-12); Blood Urea Nitrogen 17 mg/dL (9-20); Calcium 8.7 mg/dL (8.4-10.2); Carbon Dioxide 27 mmol/L (22-30); Chloride 111 mmol/L (98-107); Estimated CRCL calculation 65 ml/min; Estimated Glomerular Filt Rate > 60; Glucose 123 mg/dL (65-110); Magnesium 1.8 mg/dL (1.6-2.3); Potassium 3.3 mmol/L (3.4-5.0); Sodium 139 mmol/L (137-145)
[2024-04-02] MEDS: FLUTICASONE/SALMETEROL 45-21 MCG INHALER 1 PUFF 2 PUFF INHALATION ×2 (08:29→21:09)
[2024-04-02] MEDS: CHOLECALCIFEROL 5,000 UNITS TABLET 5000 UNITS BY MOUTH (09:10)
[2024-04-02] MEDS: ACIDOPHILUS/BULGARICUS CHEWABLE TABLET 1 TABLET PO ×2 (09:10→16:48)
[2024-04-02] MEDS: FOLIC ACID 1 MG TABLET PO (09:10)
[2024-04-02] MEDS: SENNOSIDES 8.6 MG TABLET PO ×2 (09:10→16:48)
[2024-04-02] MEDS: POTASSIUM CHLORIDE 20 MEQ ER TABLET 40 MEQ PO (09:10)
[2024-04-02] MEDS: ASPIRIN 81 MG ENTERIC TABLET PO (09:10)
[2024-04-02] MEDS: PANTOPRAZOLE 40 MG TABLET PO (09:10)
[2024-04-02] MEDS: amLODIPine BESYLATE 5 MG TABLET PO (09:11)
--- NOTE | 2024-04-02 12:29 | P.PNIM_ITS ---
Progress Note: A&P Assessment and Plan (1) Syncope: Qualifiers: Syncope type: unspecified Qualified Code(s): R55 - Syncope and collapse Code(s): R55 - Syncope and collapse Status: Acute Assessment and Plan: * Suspect it is due to his orthostasis * Pt was hydrated * No longer Orthostatic * Norvasc re-initiated. * Monitor and trend VS and Labs * ECHO ordered * Imaging of brain (CT) without any abnormal findings. * EKG reflecting A-fib - ASA for anticoagulation * SCD's are ordered as well for VTE prophylaxis. (2) Orthostatic hypotension: Code(s): I95.1 - Orthostatic hypotension Status: Resolved Assessment and Plan: 04/02/24: * See #1 (3) Atrial fibrillation with slow ventricular response: Code(s): I48.91 - Unspecified atrial fibrillation Status: Acute Assessment and Plan: 04/02/24: * Currently holding Metoprolol secondary to pulse being low originally in the 30s that then increased to the 60s-90s. * Re-initiate his Metoprolol * Monitor BP and Rate. * Continue Telemetry. (4) Essential hypertension: Code(s): I10 - Essential (primary) hypertension Status: Chronic Assessment and Plan: 04/02/24: * Restarted Norvasc and metoprolol * Still holding Losartan and Terazosin. * Continue to monitor BP (5) Heart failure with preserved ejection fraction: Code(s): I50.30 - Unspecified diastolic (congestive) heart failure Status: Acute Assessment and Plan: 04/02/24: * Restart Terazosin when appropriate. * Monitor BP trend * ECHO ordered due to syncope. (6) Benign prostatic hyperplasia: Code(s): N40.0 - Benign prostatic hyperplasia without lower urinary tract symptoms Status: Chronic Assessment and Plan: 04/02/24: * Monitor UOP and if decreases consider bladder scanning. (7) Chronic obstructive pulmonary disease: Code(s): J44.9 - Chronic obstructive pulmonary disease, unspecified Status: Chronic Assessment and Plan: 04/02/24: * Continue Albuterol and Advair Time Spent With Patient Time with patient: 25 - 35 minutes Subjective Date/time seen: 04/02/24 12:29 Interval history: Pt was examined today at the bedside. He is confused and is not a reliable historian of information but states he feels better. He is no longer orthostatic. His Amlodipine is added back and he is given a one time dose of KCL 40 mEq. BP meds will hopefully be able to be added back one at a time while continuing to monitor pressures. Review of Systems Review of Systems: ROS unobtainable: Yes unobtainable due to mental status (Dementia) Exam Narrative: General: Elderly male pt lying supine at this time in no acute distress. HEENT: Normocephalic, atraumatic. PERRL, EOMI. Sclera anicteric. Oral mucosa moist. Poor dentition. Neck: Supple. Respiratory: Lungs are coarse in all herrera with some scattered wheezes. Cardiovascular: Regular rate and rhythm with S1-S2. Gastrointestinal: Abdomen is soft, nontender, and nondistended with positive bowel sounds. Skin: Warm and dry. No rash or lesions on limited exam. Extremities: No cyanosis, clubbing, or significant edema. Radial and pedal pulses intact. Neurological: Alert to self. Cranial nerves 2-12 are grossly intact. No facial asymmetry. No gross focal deficits to casual conversation. Psychiatric: Pleasantly confused and cooperative. Objective Data Vital Signs Vital Signs: Vital Signs - 24 hr 04/01/24 13:59 04/01/24 14:00 04/01/24 14:20 Temperature 97.4 F L Pulse Rate 70 59 L 55 L Respiratory Rate 16 Blood Pressure 99/66 L 89/74 L Pulse Oximetry 97 Oxygen Delivery Room Air 04/01/24 14:21 04/01/24 14:22 04/01/24 14:23 Temperature Pulse Rate 43 L 59 L 63 Respiratory Rate 14 Blood Pressure 80/67 L 89/74 L 55/29 L Pulse Oximetry 96 Oxygen Delivery 04/01/24 14:23 04/01/24 14:30 04/01/24 15:02 Temperature 97.6 F Pulse Rate 68 67 70 Respiratory Rate 12 18 18 Blood Pressure 80/67 L 117/77 117/68 Pulse Oximetry 97 96 98 Oxygen Delivery 04/01/24 15:22 04/01/24 16:21 04/01/24 16:45 Temperature Pulse Rate 66 73 78 Respiratory Rate 16 18 Blood Pressure 121/75 127/90 Pulse Oximetry 97 98 Oxygen Delivery 04/01/24 16:50 04/01/24 17:30 04/01/24 18:00 Temperature 97.5 F L Pulse Rate 70 68 74 Respiratory Rate 20 20 Blood Pressure 132/89 114/70 Pulse Oximetry 99 Oxygen Delivery 04/01/24 20:00 04/01/24 20:00 04/01/24 20:21 Temperature 98.0 F Pulse Rate 68 68 69 Respiratory Rate 20 20 Blood Pressure 148/91 H Pulse Oximetry 99 99 Oxygen Delivery Room Air 04/01/24 22:00 04/01/24 23:45 04/01/24 23:45 Temperature Pulse Rate 74 80 80 Respiratory Rate 20 Blood Pressure Pulse Oximetry 99 Oxygen Delivery Room Air 04/01/24 23:59 04/02/24 01:50 04/02/24 03:16 Temperature 98.1 F 98.1 F Pulse Rate 73 82 81 Respiratory Rate 20 20 Blood Pressure 152/86 H 157/89 H Pulse Oximetry 98 98 Oxygen Delivery 04/02/24 03:19 04/02/24 03:19 04/02/24 05:43 Temperature Pulse Rate 85 85 74 Respiratory Rate 20 Blood Pressure Pulse Oximetry 98 Oxygen Delivery Room Air 04/02/24 08:00 04/02/24 08:00 04/02/24 08:00 Temperature 98.2 F Pulse Rate 95 Respiratory Rate 22 H Blood Pressure 153/97 H 153/97 H Pulse Oximetry 98 95 Oxygen Delivery Room Air 04/02/24 08:00 04/02/24 08:15 04/02/24 08:18 Temperature Pulse Rate 98 Respiratory Rate Blood Pressure 124/85 110/75 Pulse Oximetry Oxygen Delivery 04/02/24 08:25 04/02/24 08:25 04/02/24 10:00 Temperature Pulse Rate 72 72 84 Respiratory Rate 18 18 Blood Pressure Pulse Oximetry 95 Oxygen Delivery Room Air 04/02/24 11:47 Temperature 97.4 F L Pulse Rate 96 Respiratory Rate 18 Blood Pressure 152/86 H Pulse Oximetry 95 Oxygen Delivery Intake/Output Intake/Output: Intake & Output 03/30/24 03/31/24 04/01/24 04/02/24 23:59 23:59 23:59 23:59 Intake Total 1240 910 Output Total 50 300 Balance 1190 610 Meds/Results Medications: Active Medications Generic Name Dose Route Start Last Admin Trade Name Freq PRN Reason Stop Dose Admin Acetaminophen 650 mg 04/01/24 20:21 Acetaminophen 325 Mg Tablet PO Q6H PRN Mild Pain (1-3) or Fever Albuterol 2.5 mg 04/01/24 20:25 Albuterol Sulfate Neb 2.5 Mg/3 Ml Inh INHALATION Q6HRT PRN Wheezing Amlodipine Besylate 5 mg 04/02/24 09:00 04/02/24 09:11 Amlodipine Besylate 5 Mg Tablet PO 5 mg QAM MONET Administration Aspirin 81 mg 04/02/24 09:00 04/02/24 09:10 Aspirin 81 Mg Enteric Tablet PO 81 mg DAILY MONET Administration Atorvastatin Calcium 10 mg 04/01/24 21:00 04/01/24 21:03 Atorvastatin 10 Mg Tablet PO 10 mg HS [facility] Administration Folic Acid 1 mg 04/02/24 09:00 04/02/24 09:10 Folic Acid 1 Mg Tablet PO 1 mg QAM [facility] Administration Lactobacillus Acidophilus 1 tablet 04/02/24 09:00 04/02/24 09:10 Acidophilus/Bulgaricus Chewable Tablet PO 1 tablet BID MONET Administration Melatonin 5 mg 04/02/24 21:00 Melatonin 5 Mg Tablet PO HS [facility] Miscellaneous Information 1 each 04/01/24 00:01 Nonformulary Drug (Ramelteon 8 Mg Tablet) Can Pt Use From Home? XX 05/01/24 00:00 CLARIFY [facility] Non-Formulary Medication 8 mg 04/01/24 21:00 Ramelteon PO 05/01/24 20:59 QHS MON[facility] Pantoprazole Sodium 40 mg 04/02/24 09:00 04/02/24 09:10 Pantoprazole 40 Mg Tablet PO 40 mg QAM [facility] Administration Fluticasone/Salmeterol 2 puff 04/02/24 08:00 04/02/24 08:29 Fluticasone/Salmeterol 45-21 Mcg Inhaler 1 Puff INHALATION 2 puff Q12HRT [facility]ET Administration Senna 8.6 mg 04/02/24 09:00 04/02/24 09:10 Sennosides 8.6 Mg Tablet PO 8.6 mg BID MONET Administration Vitamin D 5,000 units 04/02/24 09:00 04/02/24 09:10 Cholecalciferol 5,000 Units Tablet BY MOUTH 5,000 units Q48HR MONET Administration Radiology Results: ITS Impressions Chest X-Ray 04/01/24 15:26 IMPRESSION: Mild pulmonary vascular congestion, without focal infiltrate or effusion. Head CT 04/01/24 15:26 IMPRESSION: 1. Old lacunar infarcts in the margaret and bilateral caudate nuclei. 2. Mild nonspecific cerebral white matter disease, which likely represents chronic small vessel ischemic disease. Labs Labs: Laboratory Results - last 24 hr 04/01/24 04/01/24 04/02/24 14:18 20:40 04:40 WBC 6.0 6.0 RBC 4.35 L 4.05 L Hgb 13.9 L 13.0 L Hct 41.7 L 38.5 L MCV 95.9 95.1 MCH 32.0 32.1 MCHC 33.3 33.8 RDW 12.1 12.0 Plt Count 161 124 L MPV 10.3 10.7 H Immature Gran % (Auto) 0.2 Neut % (Auto) 68.6 Lymph % (Auto) 21.8 [place] % (Auto) 6.9 Eos % (Auto) 2.0 Baso % (Auto) 0.5 Lymph # (Auto) 1.30 [place] # (Auto) 0.4 Eos # (Auto) 0.1 Baso # (Auto) 0.0 Abs Immat Gran (auto) 0.01 Absolute Neuts (auto) 4.1 Absolute Nucleated RBC 0.000 Nucleated RBC % 0.0 % Immature Plt Fraction 3.8 PT 14.0 INR 1.1 APTT 26.1 Sodium 140 139 Potassium 3.5 3.3 L Chloride 110 H 111 H Carbon Dioxide 30 27 Anion Gap 0 L 1 L BUN 15 D 17 Creatinine 1.20 1.00 Estim Creat Clear Calc 50 65 Estimated GFR 60 > 60 Glucose 135 H 123 H Calcium 8.8 8.7 Magnesium 1.8 Total Bilirubin 1.0 AST 19 ALT 11 Alkaline Phosphatase 59 Total Protein 6.0 L Albumin 3.7 Urine Color Dark yellow Urine Appearance Cloudy H Urine pH 6.0 Ur Specific [employer] 1.024 Urine Protein 1+ H Urine Glucose (UA) Negative Urine Ketones Trace H Ur Blood (Man) Negative Urine Nitrate Negative Urine Bilirubin 1+ H Urine Urobilinogen 1.0 Add Ur Microanalysis Reviewed Leukocyte Esterase Rfl 1+ H Urine RBC 0-2 Urine WBC 0-5 Ur Squamous Epith Cells Occasional Urine Bacteria None seen Urine Casts 3-5 Influenza A (RT-PCR) Negative Influenza B (RT-PCR) Negative RSV (RT-PCR) Negative SARS-CoV-2 RNA (RT-PCR) Negative Quality VTE Prophylaxis VTE prophylaxis: mechanical ordered
[2024-04-02] MEDS: ATORVASTATIN 10 MG TABLET PO (21:11)
[2024-04-02] MEDS: MELATONIN 5 MG TABLET PO (21:11)
[2024-04-03] VITALS (17 sets, daily range): BP systolic 115–159; BP diastolic 72–103; PULSE 74–105; RESP 16–20; TEMP 36.4–37.2; O2SAT 92–100
[2024-04-03] MEDS: FLUTICASONE/SALMETEROL 45-21 MCG INHALER 1 PUFF 2 PUFF INHALATION ×2 (08:21→20:27)
[2024-04-03 08:43] LABS: Alanine Aminotransferase 10 U/L (6-50); Albumin Level 3.4 g/dL (3.5-5.1); Alkaline Phosphatase 62 U/L (38-126); Anion Gap 1 mmol/L (4-12); Aspartate Amino Transferase 19 U/L (17-59); Blood Urea Nitrogen 13 mg/dL (9-20); Calcium 8.6 mg/dL (8.4-10.2); Carbon Dioxide 27 mmol/L (22-30); Chloride 109 mmol/L (98-107); Estimated CRCL calculation 80 ml/min; Estimated Glomerular Filt Rate > 60; Glucose 83 mg/dL (65-110); Magnesium 1.7 mg/dL (1.6-2.3); Potassium 3.2 mmol/L (3.4-5.0); Sodium 137 mmol/L (137-145)
[2024-04-03 09:09] LABS: Basophils Percent Auto 0.5 % (0.2-1.2); Eosinophils Absolute Auto 0.1 K/mm3 (0-0.3); Eosinophils Percent Auto 1.9 % (0-4.4); Hematocrit 39.5 % (42.0-52.0); Hemoglobin 13.5 g/dL (14.0-18.0); Immature Granulocyte Absolute 0.03 K/mm3 (0.00-0.031); Immature Granulocyte Percent A 0.5 % (0-0.5); Immature Platelet Fraction Pct 3.6 % (0.9-11.2); Lymphocytes Absolute Auto 1.78 K/mm3 (0.9-3.2); Lymphocytes Percent Auto 28.4 % (18.3-44.2); Mean Corpuscular HGB Conc 34.2 g/dl (32-36); Mean Corpuscular Hemoglobin 32.2 pg (26-34); Mean Corpuscular Volume 94.3 fl (80-100); Mean Platelet Volume 10.5 fl (7.4-10.4); Monocytes Absolute Auto 0.4 K/mm3 (0.1-0.6); Monocytes Percent Auto 6.7 % (2.6-8.5); Neutrophils Absolute Auto 3.9 K/mm3 (1.3-6.7); Platelet Count Result 128 k/mm3 (150-375); Red Blood Count 4.19 M/mm3 (4.6-6.20); White Blood Count 6.3 K/mm3 (4.5-10.0)
[2024-04-03] MEDS: MAGNESIUM SULF 1 GM/D5W 100 ML 1 GM/100 ML BAG IVPB (09:18)
[2024-04-03] MEDS: POTASSIUM CHLORIDE 20 MEQ PACKET (FOR LIQUID) 40 MEQ PO (09:18)
[2024-04-03] MEDS: amLODIPine BESYLATE 5 MG TABLET PO (09:19)
[2024-04-03] MEDS: ASPIRIN 81 MG ENTERIC TABLET PO (09:19)
[2024-04-03] MEDS: CHOLECALCIFEROL 5,000 UNITS TABLET 5000 UNITS BY MOUTH (09:19)
[2024-04-03] MEDS: PANTOPRAZOLE 40 MG TABLET PO (09:19)
[2024-04-03] MEDS: ACIDOPHILUS/BULGARICUS CHEWABLE TABLET 1 TABLET PO ×2 (09:19→16:33)
[2024-04-03] MEDS: FOLIC ACID 1 MG TABLET PO (09:19)
[2024-04-03] MEDS: SENNOSIDES 8.6 MG TABLET PO ×2 (09:19→16:33)
[2024-04-03 11:39] LABS: Glucose Point of Care 112 mg/dl (65-105)
[2024-04-03] MEDS: MIDODRINE HCL 2.5 MG TABLET 5 MG PO ×2 (12:44→16:33)
--- NOTE | 2024-04-03 14:00 | P.PNIM_ITS ---
Progress Note: A&P Assessment and Plan (1) Syncope: Qualifiers: Syncope type: unspecified Qualified Code(s): R55 - Syncope and collapse Code(s): R55 - Syncope and collapse Status: Acute Assessment and Plan: * Suspect it is due to his orthostasis * Pt was hydrated * No longer Orthostatic * Norvasc re-initiated. * Monitor and trend VS and Labs * ECHO EF 55-60% * Imaging of brain (CT) without any abnormal findings. * EKG reflecting A-fib - ASA for anticoagulation on Midodrine (2) Orthostatic hypotension: Code(s): I95.1 - Orthostatic hypotension Status: Resolved Assessment and Plan: orthostatic vital signs positive started on Midodrine (3) Atrial fibrillation with slow ventricular response: Code(s): I48.91 - Unspecified atrial fibrillation Status: Acute Assessment and Plan: 04/02/24: * Currently holding Metoprolol secondary to pulse being low originally in the 30s that then increased to the 60s-90s. * Re-initiate his Metoprolol * Monitor BP and Rate. * Continue Telemetry. (4) Essential hypertension: Code(s): I10 - Essential (primary) hypertension Status: Chronic Assessment and Plan: 04/02/24: * Restarted Norvasc and metoprolol * Still holding Losartan and Terazosin. * Continue to monitor BP (5) Heart failure with preserved ejection fraction: Code(s): I50.30 - Unspecified diastolic (congestive) heart failure Status: Acute Assessment and Plan: 04/02/24: * Restart Terazosin when appropriate. * Monitor BP trend * ECHO ordered due to syncope. (6) Benign prostatic hyperplasia: Code(s): N40.0 - Benign prostatic hyperplasia without lower urinary tract symptoms Status: Chronic Assessment and Plan: 04/02/24: * Monitor UOP and if decreases consider bladder scanning. (7) Chronic obstructive pulmonary disease: Code(s): J44.9 - Chronic obstructive pulmonary disease, unspecified Status: Chronic Assessment and Plan: 04/02/24: * Continue Albuterol and Advair Plan DVT prophylaxis on Eliquis Subjective Date/time seen: 04/03/24 14:00 Interval history: Comfortable at bedside orthostatics positive today, started on Midodrine ECHO normal EF Review of Systems Review of Systems: Unable to be obtained accurately as he suffers from pretty significant short- term memory loss. ROS unobtainable: Yes unobtainable due to mental status (Dementia) Exam Narrative: General: Elderly male pt lying supine at this time in no acute distress. HEENT: Normocephalic, atraumatic. PERRL, EOMI. Sclera anicteric. Oral mucosa moist. Poor dentition. Neck: Supple. Respiratory: Lungs are coarse in all herrera with some scattered wheezes. Cardiovascular: Regular rate and rhythm with S1-S2. Gastrointestinal: Abdomen is soft, nontender, and nondistended with positive bowel sounds. Skin: Warm and dry. No rash or lesions on limited exam. Extremities: No cyanosis, clubbing, or significant edema. Radial and pedal pulses intact. Neurological: Alert to self. Cranial nerves 2-12 are grossly intact. No facial asymmetry. No gross focal deficits to casual conversation. Psychiatric: Pleasantly confused and cooperative. Objective Data Vital Signs Vital Signs: Vital Signs - 24 hr 04/02/24 16:00 04/02/24 16:00 04/02/24 16:00 Temperature 98.0 F Pulse Rate 105 H 82 Respiratory Rate 18 Blood Pressure 157/86 H Pulse Oximetry 99 Oxygen Delivery Room Air 04/02/24 17:57 04/02/24 19:48 04/02/24 20:00 Temperature 99 F Pulse Rate 74 91 Respiratory Rate 16 Blood Pressure 150/96 H 150/96 H Pulse Oximetry 99 Oxygen Delivery 04/02/24 20:00 04/02/24 20:00 04/02/24 20:07 Temperature Pulse Rate 99 99 Respiratory Rate 16 Blood Pressure 153/74 H Pulse Oximetry 94 Oxygen Delivery Room Air 04/02/24 20:07 04/02/24 21:14 04/02/24 21:29 Temperature Pulse Rate 99 Respiratory Rate Blood Pressure 139/92 H Pulse Oximetry 94 Oxygen Delivery Room Air 04/02/24 23:55 04/03/24 00:00 04/03/24 00:00 Temperature 98.4 F Pulse Rate 86 90 90 Respiratory Rate 16 16 Blood Pressure 151/91 H Pulse Oximetry 99 99 Oxygen Delivery Room Air 04/03/24 01:41 04/03/24 03:49 04/03/24 04:00 Temperature 97.9 F Pulse Rate 86 86 86 Respiratory Rate 20 20 Blood Pressure 159/95 H Pulse Oximetry 96 96 Oxygen Delivery Room Air 04/03/24 04:00 04/03/24 06:00 04/03/24 08:00 Temperature Pulse Rate 86 78 Respiratory Rate Blood Pressure Pulse Oximetry Oxygen Delivery Room Air 04/03/24 08:00 04/03/24 08:12 04/03/24 08:12 Temperature 99.0 F 99.0 F Pulse Rate 79 74 74 Respiratory Rate 20 20 Blood Pressure 117/72 117/72 Pulse Oximetry 92 92 Oxygen Delivery 04/03/24 08:23 04/03/24 08:56 04/03/24 08:56 Temperature Pulse Rate 88 Respiratory Rate 20 Blood Pressure 145/86 H 136/87 Pulse Oximetry Oxygen Delivery 04/03/24 08:56 04/03/24 10:00 04/03/24 11:49 Temperature 97.5 F L Pulse Rate 98 90 Respiratory Rate 20 Blood Pressure 115/85 154/97 H Pulse Oximetry 100 Oxygen Delivery 04/03/24 12:00 04/03/24 12:00 Temperature Pulse Rate 92 Respiratory Rate Blood Pressure Pulse Oximetry Oxygen Delivery Room Air Intake/Output Intake/Output: Intake & Output 03/31/24 04/01/24 04/02/24 04/03/24 23:59 23:59 23:59 23:59 Intake Total 1240 1130 120 Output Total 50 500 Balance 1190 630 120 Meds/Results Medications: Active Medications Generic Name Dose Route Start Last Admin Trade Name Freq PRN Reason Stop Dose Admin Acetaminophen 650 mg 04/01/24 20:21 Acetaminophen 325 Mg Tablet PO Q6H PRN Mild Pain (1-3) or Fever Albuterol 2.5 mg 04/01/24 20:25 Albuterol Sulfate Neb 2.5 Mg/3 Ml Inh INHALATION Q6HRT PRN Wheezing Amlodipine Besylate 5 mg 04/02/24 09:00 04/03/24 09:19 Amlodipine Besylate 5 Mg Tablet PO 5 mg QAM [facility] Administration Aspirin 81 mg 04/02/24 09:00 04/03/24 09:19 Aspirin 81 Mg Enteric Tablet PO 81 mg DAILY [facility] Administration Atorvastatin Calcium 10 mg 04/01/24 21:00 04/02/24 21:11 Atorvastatin 10 Mg Tablet PO 10 mg HS [facility] Administration Folic Acid 1 mg 04/02/24 09:00 04/03/24 09:19 Folic Acid 1 Mg Tablet PO 1 mg QAM [facility] Administration Lactobacillus Acidophilus 1 tablet 04/02/24 09:00 04/03/24 09:19 Acidophilus/Bulgaricus Chewable Tablet PO 1 tablet BID [facility] Administration Melatonin 5 mg 04/02/24 21:00 04/02/24 21:11 Melatonin 5 Mg Tablet PO 5 mg HS [facility] Administration Midodrine 5 mg 04/03/24 13:00 04/03/24 12:44 Midodrine Hcl 2.5 Mg Tablet PO 5 mg TID [facility] Administration Pantoprazole Sodium 40 mg 04/02/24 09:00 04/03/24 09:19 Pantoprazole 40 Mg Tablet PO 40 mg QAM [facility] Administration Perflutren Lipid Microsphere 0 ml 04/02/24 12:39 Perflutren Lipid Microspheres 1.5 Ml Vial Diluted To 10 Ml Total Volume IV PUSH 04/05/24 12:39 ONCE PRN adequate visualization Protocol Fluticasone/Salmeterol 2 puff 04/02/24 08:00 04/03/24 08:21 Fluticasone/Salmeterol 45-21 Mcg Inhaler 1 Puff INHALATION 2 puff Q12HRT [facility] Administration Senna 8.6 mg 04/02/24 09:00 04/03/24 09:19 Sennosides 8.6 Mg Tablet PO 8.6 mg BID MONET Administration Vitamin D 5,000 units 04/02/24 09:00 04/03/24 09:19 Cholecalciferol 5,000 Units Tablet BY MOUTH 5,000 units Q48HR [facility]ET Administration Radiology Results: ITS Impressions Chest X-Ray 04/01/24 15:26 IMPRESSION: Mild pulmonary vascular congestion, without focal infiltrate or effusion. Head CT 04/01/24 15:26 IMPRESSION: 1. Old lacunar infarcts in the margaret and bilateral caudate nuclei. 2. Mild nonspecific cerebral white matter disease, which likely represents chronic small vessel ischemic disease. Labs Labs: Laboratory Results - last 24 hr 04/03/24 04/03/24 08:06 11:07 WBC 6.3 RBC 4.19 L Hgb 13.5 L Hct 39.5 L MCV 94.3 MCH 32.2 MCHC 34.2 RDW 12.0 Plt Count 128 L MPV 10.5 H Immature Gran % (Auto) 0.5 Neut % (Auto) 62.0 Lymph % (Auto) 28.4 [place] % (Auto) 6.7 Eos % (Auto) 1.9 Baso % (Auto) 0.5 Lymph # (Auto) 1.78 [place] # (Auto) 0.4 Eos # (Auto) 0.1 Baso # (Auto) 0.0 Abs Immat Gran (auto) 0.03 Absolute Neuts (auto) 3.9 Absolute Nucleated RBC 0.000 Nucleated RBC % 0.0 % Immature Plt Fraction 3.6 Sodium 137 Potassium 3.2 L Chloride 109 H Carbon Dioxide 27 Anion Gap 1 L BUN 13 Creatinine 0.80 Estim Creat Clear Calc 80 Estimated GFR > 60 Glucose 83 POC Capillary Glucose 112 H Calcium 8.6 Magnesium 1.7 Total Bilirubin 1.0 AST 19 ALT 10 Alkaline Phosphatase 62 Total Protein 6.0 L Albumin 3.4 L Quality VTE Prophylaxis VTE prophylaxis: mechanical ordered
[2024-04-03] MEDS: SODIUM CHLORIDE 0.9% IV 1,000 ML 50 ML IV CONT (15:06)
[2024-04-03] MEDS: ATORVASTATIN 10 MG TABLET PO (20:35)
[2024-04-03] MEDS: MELATONIN 5 MG TABLET PO (20:35)
[2024-04-04] VITALS (12 sets, daily range): BP systolic 140–160; BP diastolic 68–98; PULSE 70–122; RESP 16–20; TEMP 36.4–37.2; O2SAT 96–100
[2024-04-04 04:58] LABS: Basophils Percent Auto 0.2 % (0.2-1.2); Eosinophils Absolute Auto 0.1 K/mm3 (0-0.3); Eosinophils Percent Auto 2.1 % (0-4.4); Hematocrit 36.7 % (42.0-52.0); Hemoglobin 12.8 g/dL (14.0-18.0); Immature Granulocyte Absolute 0.02 K/mm3 (0.00-0.031); Immature Granulocyte Percent A 0.3 % (0-0.5); Immature Platelet Fraction Pct 3.2 % (0.9-11.2); Lymphocytes Absolute Auto 1.64 K/mm3 (0.9-3.2); Lymphocytes Percent Auto 26.8 % (18.3-44.2); Mean Corpuscular HGB Conc 34.9 g/dl (32-36); Mean Corpuscular Hemoglobin 32.9 pg (26-34); Mean Corpuscular Volume 94.3 fl (80-100); Mean Platelet Volume 10.5 fl (7.4-10.4); Monocytes Absolute Auto 0.4 K/mm3 (0.1-0.6); Monocytes Percent Auto 6.9 % (2.6-8.5); Neutrophils Absolute Auto 3.9 K/mm3 (1.3-6.7); Neutrophils Percent Auto 63.7 % (45.5-73.1); Platelet Count Result 120 k/mm3 (150-375); Red Blood Count 3.89 M/mm3 (4.6-6.20); Red Cell Distribution Width 12.1 % (11.5-14.5); White Blood Count 6.1 K/mm3 (4.5-10.0)
[2024-04-04 05:10] LABS: Alanine Aminotransferase 10 U/L (6-50); Albumin Level 3.3 g/dL (3.5-5.1); Alkaline Phosphatase 61 U/L (38-126); Anion Gap 1 mmol/L (4-12); Aspartate Amino Transferase 18 U/L (17-59); Bilirubin,Total 0.9 mg/dL (0.2-1.3); Blood Urea Nitrogen 12 mg/dL (9-20); Calcium 8.3 mg/dL (8.4-10.2); Carbon Dioxide 28 mmol/L (22-30); Chloride 109 mmol/L (98-107); Estimated CRCL calculation 80 ml/min; Estimated Glomerular Filt Rate > 60; Glucose 81 mg/dL (65-110); Magnesium 1.8 mg/dL (1.6-2.3); Potassium 3.3 mmol/L (3.4-5.0); Sodium 138 mmol/L (137-145)
[2024-04-04] MEDS: SODIUM CHLORIDE 0.9% IV 1,000 ML 50 ML IV CONT (07:38)
[2024-04-04] MEDS: FLUTICASONE/SALMETEROL 45-21 MCG INHALER 1 PUFF 2 PUFF INHALATION ×2 (07:58→19:57)
[2024-04-04] MEDS: ASPIRIN 81 MG ENTERIC TABLET PO (09:01)
[2024-04-04] MEDS: MIDODRINE HCL 2.5 MG TABLET 5 MG PO ×3 (09:01→18:50)
[2024-04-04] MEDS: ACIDOPHILUS/BULGARICUS CHEWABLE TABLET 1 TABLET PO ×2 (09:03→18:51)
[2024-04-04] MEDS: amLODIPine BESYLATE 5 MG TABLET PO (09:03)
[2024-04-04] MEDS: SENNOSIDES 8.6 MG TABLET PO ×2 (09:03→18:51)
[2024-04-04] MEDS: PANTOPRAZOLE 40 MG TABLET PO (09:03)
[2024-04-04] MEDS: FOLIC ACID 1 MG TABLET PO (09:05)
[2024-04-04] MEDS: METOPROLOL TARTRATE 50 MG TAB 100 MG PO ×2 (12:10→20:39)
[2024-04-04] MEDS: POTASSIUM CHLORIDE INJ 40 MEQ in SODIUM CHLORIDE 0.9% IV 500 ML 130 MEQ IVPB (12:10)
[2024-04-04] MEDS: POTASSIUM CHLORIDE 20 MEQ PACKET (FOR LIQUID) 40 MEQ PO (12:10)
[2024-04-04] MEDS: MELATONIN 5 MG TABLET PO (20:39)
[2024-04-04] MEDS: ATORVASTATIN 10 MG TABLET PO (20:39)
--- NOTE | 2024-04-04 21:47 | PC.NURSE ---
This patient, Lloyd Redman, was transferred to room 345 on 04/04/24 at 2134. Personal belongings sent with patient. Report given to GAURAV Mendez. Appropriate documentation sent with patient.
[2024-04-05] VITALS (10 sets, daily range): BP systolic 151–162; BP diastolic 85–120; PULSE 63–94; RESP 16–20; TEMP 36.7; O2SAT 96–100
[2024-04-05] MEDS: MIDODRINE HCL 2.5 MG TABLET 5 MG PO ×2 (08:20→12:09)
[2024-04-05] MEDS: ASPIRIN 81 MG ENTERIC TABLET PO (08:21)
[2024-04-05] MEDS: PANTOPRAZOLE 40 MG TABLET PO (08:21)
[2024-04-05] MEDS: METOPROLOL TARTRATE 50 MG TAB 100 MG PO (08:21)
[2024-04-05] MEDS: FOLIC ACID 1 MG TABLET PO (08:21)
[2024-04-05] MEDS: CHOLECALCIFEROL 5,000 UNITS TABLET 5000 UNITS BY MOUTH (08:21)
[2024-04-05] MEDS: amLODIPine BESYLATE 5 MG TABLET PO (08:21)
[2024-04-05] MEDS: SODIUM CHLORIDE 0.9% IV 1,000 ML 50 ML IV CONT (08:23)
[2024-04-05 08:29] LABS: Basophils Percent Auto 0.7 % (0.2-1.2); Eosinophils Absolute Auto 0.3 K/mm3 (0-0.3); Eosinophils Percent Auto 5.2 % (0-4.4); Hematocrit 39.9 % (42.0-52.0); Hemoglobin 13.9 g/dL (14.0-18.0); Immature Granulocyte Absolute 0.01 K/mm3 (0.00-0.031); Immature Granulocyte Percent A 0.2 % (0-0.5); Immature Platelet Fraction Pct 3.4 % (0.9-11.2); Lymphocytes Absolute Auto 1.71 K/mm3 (0.9-3.2); Lymphocytes Percent Auto 29.4 % (18.3-44.2); Mean Corpuscular HGB Conc 34.8 g/dl (32-36); Mean Corpuscular Hemoglobin 32.6 pg (26-34); Mean Corpuscular Volume 93.7 fl (80-100); Monocytes Absolute Auto 0.4 K/mm3 (0.1-0.6); Monocytes Percent Auto 7.4 % (2.6-8.5); Neutrophils Absolute Auto 3.3 K/mm3 (1.3-6.7); Neutrophils Percent Auto 57.1 % (45.5-73.1); Platelet Count Result 133 k/mm3 (150-375); Red Blood Count 4.26 M/mm3 (4.6-6.20); Red Cell Distribution Width 12.1 % (11.5-14.5); White Blood Count 5.8 K/mm3 (4.5-10.0)
[2024-04-05 08:40] LABS: Alanine Aminotransferase 10 U/L (6-50); Albumin Level 3.5 g/dL (3.5-5.1); Alkaline Phosphatase 60 U/L (38-126); Anion Gap -1 mmol/L (4-12); Aspartate Amino Transferase 20 U/L (17-59); Blood Urea Nitrogen 8 mg/dL (9-20); Calcium 8.7 mg/dL (8.4-10.2); Carbon Dioxide 28 mmol/L (22-30); Chloride 110 mmol/L (98-107); Estimated CRCL calculation 80 ml/min; Estimated Glomerular Filt Rate > 60; Glucose 90 mg/dL (65-110); Magnesium 1.8 mg/dL (1.6-2.3); Potassium 3.6 mmol/L (3.4-5.0); Sodium 137 mmol/L (137-145)
[2024-04-05] MEDS: FLUTICASONE/SALMETEROL 45-21 MCG INHALER 1 PUFF 2 PUFF INHALATION (09:07)
[2024-04-05] MEDS: SENNOSIDES 8.6 MG TABLET PO (12:08)
[2024-04-05] MEDS: ACIDOPHILUS/BULGARICUS CHEWABLE TABLET 1 TABLET PO (12:08)
--- NOTE | 2024-04-05 13:25 | PM.DS ---
DS: Admitting Diagnosis Discharge Date 04/05/24 Admitting Diagnosis Syncope. DS: Discharge Diagnosis Discharge Diagnosis (1) Orthostatic hypotension: Code(s): I95.1 - Orthostatic hypotension Status: Resolved (2) Syncope and collapse: Code(s): R55 - Syncope and collapse Status: Acute DS: Summary Hospital Course Hospital Course: This is a 73-year-old male with history of stroke, intracranial hemorrhage, dementia, atrial fibrillation, heart failure with preserved ejection fraction, hypertension, hyperlipidemia, chronic obstructive pulmonary disease, and other comorbidities who presented to the emergency department via EMS from [facility] for evaluation after a syncopal episode. He is not the best historian due to underlying dementia and some of the following is obtained via a review of his electronic medical records. It is my understanding that he had a brief syncopal episode when he was being transferred to the shower chair not long prior to arrival. He was lowered to the ground and sustained no injuries. The patient does not remember the incident and can provide no further details. 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 In the ED: Blood pressure was 99/66 on arrival with otherwise stable vital signs. He was profoundly orthostatic with a drop in blood pressure to 55/29 upon standing. CMP and CBC were pretty unremarkable and stable compared to prior labs. He was negative for influenza, RSV, and COVID. Brain CT was without acute findings and chest x-ray revealed mild pulmonary vascular congestion. EKG showed atrial fibrillation with slow ventricular response and nonspecific T-wave abnormalities. He was given normal saline 1 L and is being admitted in this setting for close monitoring and further workup. Likely from orthostatic hypotension, resolved with IVf adn Midodrine. ECHO showed normal EF function, with grade III diastolic. Chart reviewed showed patient was previously evaluated by cardiology and considered poor candidate for full anticoagulation, thus patient not on acnticoagulation for his Afib. Patient discharged on Midodrine x 14 days F/u with PCP in 3-5 days Continue other home meds Time Spent with Patient Time attestation: Total time spent providing and/or coordinating discharge services: DS: Data Data Completed and Pending Labs on day of discharge: Labs from last 24 hours 04/05/24 08:22 WBC 5.8 RBC 4.26 L Hgb 13.9 L Hct 39.9 L MCV 93.7 MCH 32.6 MCHC 34.8 RDW 12.1 Plt Count 133 L MPV 10.0 Immature Gran % (Auto) 0.2 Neut % (Auto) 57.1 Lymph % (Auto) 29.4 [place] % (Auto) 7.4 Eos % (Auto) 5.2 H Baso % (Auto) 0.7 Lymph # (Auto) 1.71 [place] # (Auto) 0.4 Eos # (Auto) 0.3 Baso # (Auto) 0.0 Abs Immat Gran (auto) 0.01 Absolute Neuts (auto) 3.3 Absolute Nucleated RBC 0.000 Nucleated RBC % 0.0 % Immature Plt Fraction 3.4 Sodium 137 Potassium 3.6 Chloride 110 H Carbon Dioxide 28 Anion Gap -1 L BUN 8 L Creatinine 0.80 Estim Creat Clear Calc 80 Estimated GFR > 60 Glucose 90 Calcium 8.7 Magnesium 1.8 Total Bilirubin 1.0 AST 20 ALT 10 Alkaline Phosphatase 60 Total Protein 6.0 L Albumin 3.5 Discharge Plan Discharge Attending physician on discharge: Hossein Bowen Discharging Clinician: Hossein Bowen Anticipated Discharge Date/Time: 04/05/24 13:21 Patient Disposition: NH Skilled Nursing/Asst Living Activity: as tolerated Diet: as tolerated Patient Instructions: Antibiotic Form Patient Language: Czech Stand Alone Forms: General Discharge Information Follow-up/Referrals: Jean-Claude Crawford MD [Primary Care Provider] - (F/u with PCP in 3-5 days ) Discharge Medications: New midodrine 2.5 mg Tablet 5 mg PO TID 14 Days Qty: 84 0RF Continued metoprolol tartrate 50 mg tablet 100 mg PO Q12HR sennosides [senna] 8.6 mg tablet 8.6 mg PO BID acetaminophen 325 mg Tablet 650 mg PO Q4H PRN (Reason: Pain (Scale Score 1-3)) albuterol sulfate 2.5 mg /3 mL (0.083 %) Solution For Nebulization 2.5 mg inhalation Q6H PRN (Reason: Wheezing) atorvastatin 10 mg tablet 10 mg PO HS aspirin 81 mg tablet,delayed release (DR/EC) 81 mg PO DAILY omeprazole 20 mg capsule,delayed release(DR/EC) 20 mg PO QAM folic acid 1 mg tablet 1 mg PO QAM nystatin 100,000 unit/gram powder 1 applic TOPICAL Q12H PRN (Reason: reddness) Rx Instructions: apply to groin fluticasone propion-salmeterol [Wixela Inhub] 100-50 mcg/dose Blister With Device 1 ea INHALATION QAM ramelteon 8 mg tablet 8 mg PO QHS Lactobacillus acidoph-L.bulgar 1 million cell tablet 1 tablet PO BID amlodipine 5 mg tablet 5 mg PO QAM terazosin 10 mg capsule 10 mg PO QAM escitalopram oxalate 5 mg Tablet 5 mg PO DAILY cholecalciferol (vitamin D3) 125 mcg (5,000 unit) capsule 125 mcg PO EVERY OTHER DAY losartan [Cozaar] 50 mg tablet 100 mg PO HS cefdinir 300 mg Capsule 300 mg PO Q12HR Qty: 2 0RF doxycycline hyclate 100 mg Tablet 100 mg PO Q12HR Qty: 2 0RF Date of admission: 04/04/24 13:27 Primary Care Provider: Jean-Claude Crawford Admitting Provider: Simba Rodriguez Attending physician on admission: Taryn Anderson Condition: Serious
--- OUTSIDE RECORDS SUMMARY | 2024-04-08 10:31 | XMS_ITS ---
Author Organization [facility] [place] Address Unknown Allergies, Adverse Reactions, Alerts Substance Reaction Status Noted Date Resolved Date Penicillin Cutaneous reactions active 07/08/2021 Problems Problem Status Start Date End Date TRAUMATIC CEREBRAL EDEMA WIT H LOSS OF CONSCIOUSNESS OF 30 MINUTES OR LESS, SUBSEQUENT ENCOUNTER (Primary) (S06.1X1D - ICD-10-CM) ACTIVE 07/07/2021 COVID-19 (U07.1 - ICD-10-CM) ACTIVE 10/05/2021 DISPLACED INTERTROCHANTERIC FRACTURE OF LEFT FEMUR, SUBSEQUENT ENCOUNTER FOR CLOSED FRACTURE WITH ROUTINE HEALING (S72.142D - ICD-10-CM) ACTIVE 07/07/2021 BENIGN INTRACRANIAL HYPERTENSION (G93.2 - ICD-10-CM) A CTIVE 07/07/2021 MUSCLE WEAKNESS (GENERALIZED) (M62.81 - ICD-10-CM) ACT REID 07/07/2021 FAMILY HISTORY OF FAMILIAL H YPERCHOLESTEROLEMIA (Z83.42 - ICD-10-CM) ACTIVE 07/08/2021 DIFFICULTY IN WALKING, NOT E LSEWHERE CLASSIFIED (R26.2 - ICD-10-CM) ACTIVE 07/07/2021 MUSCLE WASTING AND ATROPHY, NOT ELSEWHERE CLASSIFIED, MULTIPLE SITES (M62.59 - ICD-10-CM) ACTIVE 07/07/2021 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) ACTIVE 07/08/2021 DYSPHAGIA, OROPHARYNGEAL PHASE (R13.12 - ICD-10-CM) AC TIVE 07/07/2021 COGNITIVE COMMUNICATION DEFICIT (R41.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 08/02/2021 03 :33 pm EDT * URINALYSIS Performed by: [place], [place] [id number] [place] [address], [facility] [address] [facility] [address] Component Value Range Date COLOR YELLOW YELLOW 08/02/2021 03:3 3 pm EDT CLARITY CLEAR CLEAR 08/02/2021 03:3 3 pm EDT GLUCOSE,UR NEGATIVE NEGATIVE 08/02/2021 03:3 3 pm EDT BILIRUBIN,UR NEGATIVE NEGATIVE 08/02/2021 03:3 3 pm EDT KETONES,UR 1+ NEGATIVE 08/02/2021 03:3 3 pm EDT SPECIFIC GRAVITY 1.013 1.001-1.030 08/02/2021 03:33 pm EDT BLOOD,UR NEGATIVE NEGATIVE 08/02/2021 03:3 3 pm EDT PH, URINE 7.0 5.0-8.5 08/02/2021 03:3 3 pm EDT PROTEIN,UR NEGATIVE NEGATIVE 08/02/2021 03:3 3 pm EDT UROBILINOGEN,UR NEGATIVE NEGATIVE 08/02/2021 0 3:33 pm EDT NITRITE,UR NEGATIVE NEGATIVE 08/02/2021 03:3 3 pm EDT LEUKOCYTES,UR NEGATIVE NEGATIVE 08/02/2021 03: 33 pm EDT RBC,UR 0-2 /HPF <6 08/02/2021 03:3 3 pm EDT WBC,UR 0-2 /HPF <6 08/02/2021 03:3 3 pm EDT EPITHELIAL CELL NEGATIVE NEGATIVE 08/02/2021 0 3:33 pm EDT BACTERIA,UR NEGATIVE NEGATIVE 08/02/2021 03:3 3 pm EDT HYALINE CASTS NEGATIVE NEGATIVE 08/02/2021 03: 33 pm EDT MUCOUS PRESENT ABSENT 08/02/2021 03:3 3 pm EDT * CMP-COMPREHENSIVE METABOLIC PNL Performed by: [address], [address] [address] Component Value Range Date GLUCOSE 98 07/31/2021 05:1 3 pm EDT SODIUM 142 mEq/L 135-145 07/31/2021 05:1 3 pm EDT POTASSIUM 3.4 mEq/L 3.5-5.3 07/31/2021 05:1 3 pm EDT CHLORIDE 105 mEq/L 98-110 07/31/2021 05:1 3 pm EDT CARBON DIOXIDE (CO2) 28 mEq/L 21-33 022 05:13 pm EDT BUN (UREA NITROGEN) 7 mg/dL 7-25 08/01/19 05:13 pm EDT CREATININE 0.8 mg/dL 0.7-1.3mg/dL 07/31/2021 05:1 3 pm EDT BUN/CREATININE RATIO 9 6-25 05:13 pm EDT GFR- 116 mL/min/1.73 m2 >60 0 07/31/2021 05:13 pm EDT FPS-BYO-ZQYGGLM 96 mL/min/1.73 m2 >60 07/31/2021 05:13 pm EDT CALCIUM 8.7 mg/dL 8.6-10.3mg/dL 07/31/2021 05: 13 pm EDT PROTEIN, TOTAL 5.7 g/dL 6.0-8.3 07/31/2021 05 :13 pm EDT ALBUMIN 3.3 g/dL 3.5-5.5 07/31/2021 05:1 3 pm EDT A/G RATIO 1.4 0.8-2.0 07/31/2021 05:1 3 pm EDT ALKALINE PHOS 128 IU/L 34-136 07/31/2021 05: 13 pm EDT AST (SGOT) 20 IU/L 4-40 07/31/2021 05:1 3 pm EDT ALT (SGPT) 15 IU/L 4-55 07/31/2021 05:1 3 pm EDT BILIRUBIN, TOTAL 0.6 mg/dL 0.2-1.2 07/31/2021 05:13 pm EDT * CBC W/DIFF Performed by: [place] [address] [address], [place] [address] [facility] [address] Component Value Range Date WBC 5.4 K/cmm 4.5-10.8 07/31/2021 05:1 3 pm EDT RBC 3.60 M/cmm 4.00-6.60 07/31/2021 05:1 3 pm EDT HEMOGLOBIN 12.0 g/dL 14.0-18.0 07/31/2021 05:1 3 pm EDT HEMATOCRIT 35.9 % 42.0-54.0 07/31/2021 05:1 3 pm EDT MCV 99.7 fL 80.0-100.0 07/31/2021 05:1 3 pm EDT MCH 33.4 pg 26.0-35.0 07/31/2021 05:1 3 pm EDT MCHC 33.5 g/dL 31.0-36.5 07/31/2021 05:1 3 pm EDT RDW 14.0 % 11.0-16.0 07/31/2021 05:1 3 pm EDT PLATELET 194 K/cmm 150-450 07/31/2021 05:1 3 pm EDT MPV 8.8 fL 6.5-12.0 07/31/2021 05:1 3 pm EDT NEUTROPHILS 68.7 % 40.0-80.0 07/31/2021 05:1 3 pm EDT LYMPHS 22.6 % 13.0-48.0 07/31/2021 05:1 3 pm EDT MONOCYTES 6.7 % 2.0-12.0 07/31/2021 05:1 3 pm EDT EOS 1.5 % 0.0-8.0 07/31/2021 05:1 3 pm EDT BASO 0.5 % 0.0-2.0 07/31/2021 05:1 3 pm EDT NEUTS (ABSOLUTE) 3.70 K/uL 1.50-7.60 07/31/2021 05:13 pm EDT LYMPHS (ABSOLUTE) 1.20 K/uL 0.90-5.50 07/31/2021 05:13 pm EDT MONOCYTES (ABSOLUTE) 0.40 K/uL 0.15-1.10 022 05:13 pm EDT EOS (ABSOLUTE) 0.10 K/uL 0.20-0.80 07/31/2021 05 :13 pm EDT * BASIC MET PNL INCL GFR (BMP) Performed by: [place] [address] [employer], [place] [address] [facility] [address] Component Value Range Date GLUCOSE 134 07/26/2021 05:4 8 pm EDT SODIUM 145 mEq/L 135-145 07/26/2021 05:4 8 pm EDT POTASSIUM 3.4 mEq/L 3.5-5.3 07/26/2021 05:4 8 pm EDT CHLORIDE 108 mEq/L 98-110 07/26/2021 05:4 8 pm EDT CARBON DIOXIDE (CO2) 26 mEq/L 21-33 022 05:48 pm EDT BUN (UREA NITROGEN) 10 mg/dL 7-07/27/19 05:48 pm EDT CREATININE 0.8 mg/dL 0.7-1.3mg/dL 07/26/2021 05:4 8 pm EDT BUN/CREATININE RATIO 13 6- 022 05:48 pm EDT GFR- 116 mL/min/1.73 m2 >60 0 07/26/2021 05:48 pm EDT [id number] 96 mL/min/1.73 m2 >60 07/26/2021 05:48 pm EDT CALCIUM 8.1 mg/dL 8.6-10.3mg/dL 07/26/2021 05: 48 pm EDT * CBC W/DIFF Performed by: [place] [address] [employer], [facility] [address] [facility] [address] Component Value Range Date WBC 5.0 K/cmm 4.5-10.8 07/26/2021 05:4 8 pm EDT RBC 3.27 M/cmm 4.00-6.60 07/26/2021 05:4 8 pm EDT HEMOGLOBIN 11.0 g/dL 14.0-18.0 07/26/2021 05:4 8 pm EDT HEMATOCRIT 32.4 % 42.0-54.0 07/26/2021 05:4 8 pm EDT MCV 99.2 fL 80.0-100.0 07/26/2021 05:4 8 pm EDT MCH 33.6 pg 26.0-35.0 07/26/2021 05:4 8 pm EDT MCHC 33.8 g/dL 31.0-36.5 07/26/2021 05:4 8 pm EDT RDW 14.4 % 11.0-16.0 07/26/2021 05:4 8 pm EDT PLATELET 200 K/cmm 150-450 07/26/2021 05:4 8 pm EDT MPV 8.4 fL 6.5-12.0 07/26/2021 05:4 8 pm EDT NEUTROPHILS 71.4 % 40.0-80.0 07/26/2021 05:4 8 pm EDT LYMPHS 19.6 % 13.0-48.0 07/26/2021 05:4 8 pm EDT MONOCYTES 6.9 % 2.0-12.0 07/26/2021 05:4 8 pm EDT EOS 1.4 % 0.0-8.0 07/26/2021 05:4 8 pm EDT BASO 0.7 % 0.0-2.0 07/26/2021 05:4 8 pm EDT NEUTS (ABSOLUTE) 3.60 K/uL 1.50-7.60 07/26/2021 05:48 pm EDT LYMPHS (ABSOLUTE) 1.00 K/uL 0.90-5.50 07/26/2021 05:48 pm EDT MONOCYTES (ABSOLUTE) 0.30 K/uL 0.15-1.10 022 05:48 pm EDT EOS (ABSOLUTE) 0.10 K/uL 0.20-0.80 07/26/2021 05 :48 pm EDT * CHEST, 2 VIEWS Performed by: [employer] [phone] Component Value Range Date CHEST, 2 VIEWS Patient Report for: JANIA REDMANPatient Name: JANIA REDMAN Patient : 1950Facility: [facility]: [id number] of Service: 2Clinical Information: COVID NEG POSSIBLE ASPIRAITON COUGHTest Procedure: [id number] CHEST, 2 VIEWSFindings:CHEST 2 VIEWFINDINGS:AP and lateral view. The cardiac silhouette measures mildly to moderately enlarged. The hilar and mediastinal structures appear unremarkable. Linear atelectasis seen bilaterally. Aorta is tortuous. No infiltrate or effusion is seen. The osseous structures appear grossly intact.Impressions:IMPRESSION:No evidence of acute cardiopulmonary disease, communicable disease or tuberculosis. Cardiomegaly. No aspiration pneumonia is noted.Interpreting Radiology Company: PanjivaInterpreting Doctor: Linwood Espino DOElectronically Signed By: Linwood Espino DOSigned Date: Physician electronically signed on - 07/26/2021 01:24:06 [employer] is Accredited by the Joint Commission 07/26/2021 02:24 pm EDT * Right HIP, UNILATERAL W/ PELVIS WHE Performed by: [employer] [phone] Component Value Range Date Right HIP, UNILATERAL W/ PELVIS WHE Patient Report for: JANIA REDMANPatient Name: JANIA REDMAN Patient : 1950[id number] Service: 07/12/2021linical Information: RT HIP PAIN, STATUS POST FALLTest Procedure: [id number]-(RT) Right HIP, UNILATERAL W/ PELVIS WHEFindings:HIPFINDINGS: No pelvis images provided.There is no evidence of acute fracture, dislocation or osseous lesion. The hip joint space is mildly narrowed. The adjacent soft tissues appear unremarkable.Impressions:IMPRESS ION:No acute fracture. Follow-up study is recommended if patient's pain persists.Interpreting Radiology Company: [employer]ivaInterpreting Doctor: Linwood Espino DOElectronically Signed By: Linwood Espino DOSigned Date: Physician electronically signed on - 07/12/2021 04:09:38 [employer] is Accredited by the Joint Commission 07/12/2021 05:10 pm EDT Encounters Encounter Performer Performer Role Encounter Diagnoses Location Date Discharge - Discharged / Transferred to another hospital - [facility]* ([place]) - [facility] 07/07/2021 09:42 pm EDT - 10/04/2021 01:10 pm EDT Reason For Referral Unresponsive Social History
--- OUTSIDE RECORDS SUMMARY | 2024-04-08 10:31 | XMS_ITS | Clinical Summary ---
Author Organization [facility] Address [address] [place] [address] Care Team Providers Care Card Tender Name Role Phone Unavailable Primary Care Provider Unavailabl e Source Comments [facility],non-owned Affiliates and Associated Physician Practices is amultiple site organization consisting of ambulatory clinics and hospital sitesin [place], [place], [place] and [place]. This disclosure is being madepursuant to the Care Everywhere program and may not contain all information available regarding this patient. Last updated 17.[facility] Active Problems Problem Noted Date Diagnosed Date Intracranial hemorrhage 06/11/2021 Social History Tobacco Use Types Packs/Day Years Used Date Smoking Tobacco: Never Assessed Sex and Gender Information Value Date Recorded Sex Assigned at Not on file Gender Identity Not on file Sexual Orientation Not on file Plan of Treatment Health Maintenance Due Date Last Done Comments COLOGUARD (AGES 45-75) - COL ON CA SCREENING 1950 COLON MONITORING 1950 COLONOSCOPY - COLON CA SCREENING 1950 CT COLONOGRAPHY - COLON CA SCREENING 1950 Colorectal Cancer Screening 1950 FIT - COLON CA SCREENING 1950 FLEX SIG - COLON CA SCREENING 1950 LIPID TESTING 1950 HEPATITIS C SCREENING 05/14/1969 DTAP/TDAP/TD VACCINES (1 - Tdap) 1970 ZOSTER VACCINE (1 of 2) 2001 PNEUMOCOCCAL VACCINE 65+ (1 of 1 - PCV) 2016 DEPRESSION SCREENING 04/08/2023 MEDICARE AWV ? CALENDAR YEAR 2023 COVID-19 VACCINE ( - 2023-2 5 season) 2023 INFLUENZA VACCINE (#1) 2023 Respiratory Syncytial Virus (RSV) Vaccine Pt: or over 60 yrs (1 - 1-dose 75+ series) 2026 HEPATITIS B VACCINE Aged Out No longe r eligible based on patient's age to complete this topic HIB VACCINE Aged Out No longer eligi ble based on patient's age to complete this topic HPV VACCINE Aged Out No longer eligi ble based on patient's age to complete this topic MENINGOCOCCAL VACCINE Aged Out No len marcos eligible based on patient's age to complete this topic
--- OUTSIDE RECORDS SUMMARY | 2024-04-08 10:31 | XMS_ITS | Referral Summary ---
Author Organization [facility] Address [address] [place] [address] Care Team Providers Care Corporate Ethics Officer Name Role Phone Unavailable Primary Care Provider Unavailabl e Source Comments [facility],non-owned Affiliates and Associated Physician Practices is amultiple site organization consisting of ambulatory clinics and hospital sitesin [place], [place], [place] and [place]. This disclosure is being madepursuant to the Care Everywhere program and may not contain all information available regarding this patient. Last updated 17.[facility] Active Problems Problem Noted Date Diagnosed Date Intracranial hemorrhage 06/11/2021 Social History Tobacco Use Types Packs/Day Years Used Date Smoking Tobacco: Never Assessed Sex and Gender Information Value Date Recorded Sex Assigned at Not on file Gender Identity Not on file Sexual Orientation Not on file Plan of Treatment Not on file
--- OUTSIDE RECORDS SUMMARY | 2024-04-08 10:31 | XMS_ITS | Continuity of Care Document ---
Author Organization [facility] Address [address] [place] [address]- Care Team Providers Care Policy Analyst Name Role Phone Unavailable Primary Care Physician Brayden zurita Encounter(s) 08/03/22 [facility] [address] [place] [address]- Attending Physician: Veronica Ocampo Allergies, Adverse Reactions, Alerts Substance Reaction Severity Status penicillin Active Assessment and Plan Extracted from: Title:Discharge Note Author:Caryn Das Date: 01/15/20 On 01/12 patient and Raine zurita, , p:[phone] selected LCD 01/13 with discharge date of Sunday 01/14. Due to less than 48 hours notice of discharge based on family selection no NOMNC will be issued at this time. On 01/07 sent information on private duty agencies and for respite stays to spouse ([email or web address]) via email. Discharge plan is to return to tri-level home with , Raine ([address] [place] [address]). There are 2 stairs to enter main level of home. There are no bathrooms on main level. There are 7 stairs to enter 2nd level of home where there are 3 bedrooms and 2 full bathrooms. will leaf size picker patient on Sunday 01/14 between [phone]. will take patient to appointment and then transport him home. PCP: Jean-Claude Crawford phone: [phone] Pharmacy: [facility] address: [address] [place] [address] phone: [phone] Patient owns wheeled walker. There are no equipment needs at this time. [facility] p: [phone] f:[phone] will follow for home health services with start of care on 01/20. On 01/14 discharge paperwork was faxed to agency. There are no additional discharge needs at this time. Extracted from: Title:Progress Note Author:Caryn Das Date:1 On 01/12 patient and Raine zurita, , p:[phone] selected LCD 01/13 with discharge date of Sunday 01/14. Due to less than 48 hours notice of discharge based on family selection no NOMNC will be issued at this time. On 01/13 SW spoke with , Raine, to provide update of home healthcare agency. She is aware/agreeable. On 01/07 SW sent information on private duty agencies and for respite stays to spouse ([email or web address]) via email. Discharge plan is to return to tri-level home with , Raine ([facility] [place] [address]). There are 2 stairs to enter main level of home. There are no bathrooms on main level. There are 7 stairs to enter 2nd level of home where there are 3 bedrooms and 2 full bathrooms. will leaf size picker patient on Sunday 01/14 between [phone]. will take patient to appointment and then transport him home. PCP: Jean-Claude Crawford phone: [phone] Pharmacy: [facility] address: [address] [place] [address] phone: [phone] Patient owns wheeled walker. There are no equipment needs at this time. On 01/13 SW received voicemail from aung Lau, cell: [phone] with [facility] p:[phone] f:[phone] who informed patient had different insurance and agency does not accept his [facility] insurance. On 01/13 SW reached out to [facility] who is unable to staff patient. On 01/13 clinical information/orders faxed to [facility] p: [phone] f:[phone]. AMARJIT spoke with Gloria who expressed agency has start of care for 01/20. SW will continue to follow and assist with discharge needs. Extracted from: Title:Progress Note Author:Caryn Das Date: On 01/12 received call fro m Raine Guajardo, , p:[phone] who expressed wishes for patient to discharge home on Sunday 01/14 prior to appointment. Family selected LCD 01/13 with discharge date of Sunday 01/14. Due to less than 48 hours notice of discharge based on family selection no NOMNC will be issued at this time. Discharge details were reviewed with spouse for below. Spouse was also made aware that patient has declined to participate with therapy over the last couple days. On 01/12 SW met with patient in room to discuss him declining therapy. Patient expressed not having interest in doing the stupid shit with therapy, such as stopping breakfast to show a therapist he can brush his teeth. He is aware/agreeable to discharge on Sunday 01/14. Patient/spouse have indicating 2 blue jeans are not with patient's belongings. BOOM Yap and erickson So informed SW that yony Tavera located blue jeans today and returned them to patient's room. On 01/07 SW sent information on private duty agencies and for respite stays to spouse ([email or web address]) via email. Discharge plan is to return to tri-level home with , Raine ([facility] [place] [address]). There are 2 stairs to enter main level of home. There are no bathrooms on main level. There are 7 stairs to enter 2nd level of home where there are 3 bedrooms and 2 full bathrooms. will leaf size picker patient on Sunday 01/14 between [phone]. will take patient to appointment and then transport him home. PCP: Jean-Claude Crawford phone: [phone] Pharmacy: [facility] address: [address] [place] [address] phone: [phone] Patient owns wheeled walker. There are no equipment needs at this time. Patient has used [facility] previously and wishes to resume services. On 01/12 clinical information faxed to [facility] p:[phone] f:[phone] to initiate referral. aung Lau, cell: [phone] notified of referral. SW will continue to follow and assist with discharge needs. Extracted from: Title:Clinical Document Author:Rashid Doll LPN Date:01/13/20 Pt was lowered to the floor by PT during transfer. Pt denies any dizziness or pain at the time of incident. Pt stated, my legs just gave out. VS take while sitting on the floor and were WNL. Pt was assisted up to bedside with gaitbelt and assist x2. No change from baseline observed. NAIs at this time. PCP notified with NNOs received. Voice message left for spouce requesting a return call. Extracted from: Title:Transfer Author:Veronica David Date: 01/12/20 Resident transferred from 2n d floor, dx cholecystitis, abdominal pain, assistx1 transfers, monitor drain measurements, alert x1, able to make needs known. Extracted from: Title:Clinical Document Author:Sharonda Das RP h Date:01/11/20 Pharmacy Progress Note Based upon the information available at the time of the review, and assuming the accuracy and completeness of such information, it is my professional judgment that at such time, the resident? s medication regimen contained no new irregularities (as defined in JOSE RAFAEL Appendix PP ??483.45 (??). For purposes of the forgoing statement, the term irregularity means an event or circumstances that substantially inconsistent with customary, accepted clinical approaches to providing pharmaceutical products and services, or that could reasonably be expected to impede or interfere with the achievement of intended or reasonably expected outcomes. Extracted from: Title:Progress/SOAP Note Author:Angie Gabriel Date:01/11/20 1.??Calculus of gallbladder and bile duct with acute and chronic cholecystitis without obstruction 2.??Cutaneous abscess of abdominal wall ??Now completed IV antibiotics. Follow up appointment on 01/14/2020 3.??Paroxysmal atrial fibrillation ??Continue with medications ?? We discussed at length his physical abilities. He would like to discharge after his appointment on 01/14/2020 if the drain is removed. From my point of view this is a safe plan as he is ambulating well and performing ADLs well.?? municipal services manager reports he has an insurance update soon and will likely be cut with discharge this weekend.?? Extracted from: Title:Clinical Document Author:Sharon Maldonado METAL PLATER Date:01/09/20 Patient had 25cc in drain. Extracted from: Title: edu Author:Sada Gabriel Date: I received consult from AMARJIT w maryann requesting diet edu follow-up. I called Raine today and discussed her 's current nutrition plan of care. She was happy to hear he is receiving Arginaid BID and 2% milk for increased Pro to aide in wound healing. She reported he drinks Ensure Clear often 1 bottle every morning with 1 c of coffee. I let her know he appears to be eating well 88%x1 week, however we can only estimate how much pro at each meal he is eating. She understood and asked if we could add 1x day clear ONS (noting milky Ensure caused side effect of phlegm). I let her know we would add it today with breakfast trays going forward and that we weekly review how he is doing during a high risk IDT meeting (specific to wound healing and weight trends). She was happy to hear and thanked me for my time. Addendum by Sada Gabriel on January 06, 2020 14:44 CDT Boost Breeze provides an additional 250kcal, 9g PRO, per 237mL vol Extracted from: Title:Initial Assessment Author:Caryn Das ate:12/30/19 Lloyd Guajardo is a 69 y/o man w ho admitted from [facility] (12/18/19- 12/28/19) with abdominal wall abscess and cholecystitis. Has DAVEY drain to LLQ, stage 2 pressure ulcer to sacral region, and on IV meropenem Q8 hours with stop date TBD. History of A fib, hyperlipidemia, and hypertension. Upcoming appointments: 01/03 at 1100 for Interventional Radiology Consult phone:[phone] 01/[address] Eugene Gomez [facility] phone: [phone] ( is planning on picking up patient and transporting to these appointments) On 12/28 AMARJIT met with patient in room and on 12/29 AMARJIT spoke with Raine Guajardo, , phone: [phone] to obtain social history and discuss discharge planning. Appears A&Ox4. Goes by Lloyd. He was born in [place], [place]. Completed high school. 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 He reports visual impairments that are not corrected with glasses. He reports being hard of hearing and does not have hearing aids at facility due to not being able to see to change batteries. He is and 2 daughters and 3 grandchildren. 1st contact: Raine Guajardo, , phone: [phone] PCP: Jean-Claude Crawford phone: [phone] Pharmacy: [facility] address: [address] [place] [address] phone: [phone] Prior to hospitalization patient lived in tri-level home with , Raine ([address] [place] [address]). There are 2 stairs to enter main level of home that has living area with kitchen, dining room, and living room. There are no bathrooms on main level. There are 7 stairs to enter 2nd level of home where there are 3 bedrooms and 2 bathrooms. One bathroom has step-over tub/shower and the other has walk-in shower with threshold with built in seat and grab bars. There are stairs to enter basement where there is another bathroom, living area, and laundry room. Previously patient was modified independent with ADLs and using w/w for mobility since August 2019. Previously shared cooking, cleaning, and laundry tasks with . Patient sets up pill box for patient's medications. Patient no longer drives due to vision and provides transportation. is independent and uses cane for mobility. Completed BIMS/PHQ9 screens with indicators of moderate depression. No history of trauma reported at this time. [facility] Advantage insurance. Reviewed that insurance will determine patient's length of stay at SNF rehab and there will be weekly updates sent into insurance for review. Patient has in/out of hospital/SNF rehab ([facility] in [place]) since July 2019. reports being home for 2 days before falling and going back to the hospital. She reports [facility] had been arranged, but never started. Care Plan meeting scheduled for Thursday 01/04 at 1100 with call to Raine Guajardo, , phone: [phone]. reports patient is unable to return home until his gall bladder is removed, is able to go up/down stairs to get to bathroom (bedside commode on main level is out of the question ), and can hold urine/bowels. Discharge goal is to return home ([place], [place]) with and home healthcare services. Awaiting progress medically and with therapy services to determine discharge plan. SW will continue to follow and assist with discharge needs. Extracted from: Title:Initial Author:Sada Gabriel Date: This is the Initial Nutritio nal Evaluation for Lloyd Guajardo. Diet is Regular per MD. RD added BID, Arginaid 25 kcal, 4.5g PRO per packet and 2% milk with dinner, pref. Subjective Interview: Resident enjoys low fat milk and most all foods and does not care for oatmeal here, tired of eggs, not a fan of yogurt. Denied need of nutrition education for potential DC home. Denied need of additional ONS at this time besides Arginaid with a ? fine appetite? and stable w thx over 6 months. NKFA or intolerances. Not admitted with supplemental nutrition orders. Skin: Adm nursing note 12/27 documented stage II pressure ulcer to sacral area, DAVEY drain LLQ, wound note 12/28 noted L buttock pink (1.3x1.4cm). No reported chewing or swallowing difficulties with own teeth missing several. MNA score of 12 indicating not at nutritional risk. Ht 71? BMI of 23.6-24 indicating normal (18.5-24.9) Full nutritional assessment to follow. Extracted from: Title:Clinical Document Author:Tamiko Silva [facility] Date:12/29/19 Pharmacy Progress Note Based upon the information available at the time of review, and assuming the accuracy and completeness of such information, it is my professional judgment that at such time, the resident? s medication regimen contained no new irregularities (as defined in JOSE RAFAEL Appendix PP 483.45). For purposes of the foregoing statement, the term ? irregularity? means an event or circumstance that is substantially inconsistent with the customary, accepted clinical approaches to providing pharmaceutical products and services, or that could reasonably be expected to impede or interfere with the achievement of intended or reasonably expected outcomes. Extracted from: Title:Clinical Document Author:Paradise Holly Date: 12/29/19 Patient's skin is assessed f rom head to toe today, anterior is assessed first, PICC line is present to the right upper arm, with a dressing intact. No issues. Heels are dry but intact, no breakdown noted. The patient's skin overall is dry and cool. On the posterior side of the body, the patient's inside areas of the buttocks is pink in color, on the left buttocks a stage 2 is present which is 1. 3x1.4 cm. The area is pink, no drainage or depth measured. Addendum by Paradise Holly on [facility] 2019 11:17 CDT Right buttock stage 2 evident with a measurement of 5.4x2.5cm. Skin is pink in color Addendum by Paradise Holly on [facility] 2019 11:27 CDT No depth or drainage noted. Foam dressin gs are both applied to wounds. Extracted from: Title:Clinical Document Author:Rashid Doll LPN Date:12/28/19 Pt arrived on a stretcher vi a ambulance. Pt is 69 y/o male admitted to room 207B for cholecystitis and intra-abdominal abscess. Allergies to Penicillin. A&Ox3-4 and able to make most needs known. Pt has DAVEY drain to LLQ and stage 2 PU to sacral area. Mid-line PICC in place to RUE and patent. Regular diet. Continent of urine and uses a urinal, and occasionally incontinent of bowel. Pt had negative COVID test results on 12.24.19. Uses room air. Pt signed consent form and Code Status form, opting to be a FC while at this facility. Medications verified with DR. Estevez and faxed to pharmacy and IV infusion departments. Functional Status 08/03/22 Recent Travel History No recent travel Family Member Travel History No recent t ravel Other Exposure to Infectious Disease No known exposure 01/14/20 Behaviors Exhibited Calm, Cooperative Interventions Used to Alter Behavior Com fort and compassion 12/28/19 Level of Assistance - Self Care-Mobility New decline from baseline Immunizations Given and Recorded Vaccine Date Status Refusal Reason tuberculin purified protein derivative 01/12/20 Gi janet tuberculin purified protein derivative 1 12/29/19 Given 1Early/Late Reason: Early/Late Reason: Flexible Med Pass Problem List Condition Confirmation Course Effective Dates Status Health St [facility] Informant Self -care deficit 1 Confirmed 12/29/19 Active 1Problem added automatically by system based on initiation of LTC ADL Function Rehab IPOC Results Laboratory List Name Date Ongoing Evaluation Skilled Services 01/13 Most recent to oldest [Reference Range]: 1 Urine Color Urine Dipstick Yellow (01/14/20 11:56 PM) Urine Appearance Urine Dipstick Clear (01/14/20 11:56 PM) Vital Signs Most recent to oldest [Reference Range]: 1 Blood Pressure [90-140/60-90 mmHg] 132/7 0mmHg (01/13/20 11:00 PM) Temperature Oral [[id number] [id number] DegF] 97.2 DegF (01/14/20 8:26 PM) Peripheral Pulse Rate [60-100 bpm] 70 bp m (01/13/20 11:00 PM) Respiratory Rate [14-20 br/min] 16 br/mi n (01/13/20 11:00 PM) Mean Arterial Pressure, Cuff 91 mmHg (01/13/20 11:00 PM) Weight Measured-lbs [0-0 lb] 188.6 lb (01/12/20 8:42 AM) Social History Social History Type Response Tobacco Smoking Tobacco Use: Never (less than 100 in lifetime). Sex Hospital Discharge Instructions Patient Education 01/15/2020 07:56:38 Cholecystitis, [id number]-cv-[id number] Cholecystitis Cholecystitis is swelling and irritation (inflammation ) of your gallbladder. This often happens when gallstones or sludge build up in the gallbladder. Treatment is needed right away. HOME halfway care depends on how you were treated. In general: ??? If you were given antibiotic medicine, take it as told. Finish the medicine even if you start to feel better. ??? Only take medicines as told by your doctor. ??? Eat low-fat foods until your next doctor visit. ??? Keep all doctor visits as told. GET HELP RIGHT AWAY IF: ??? You have more pain and medicine does not help. ??? Your pain moves to a different part of your belly (abdomen ) or to your back. ??? You have a fever. ??? You feel sick to your stomach (nauseous ). ??? You throw up (vomit ). MAKE SURE YOU: ??? Understand these instructions. ??? Will watch your condition. ??? Will get help right away if you are not doing well or get worse. Document Released: 03/13/2012 Document Reviewed: 03/11/2012 ExitCare?? Patient Information ??2011 [employer]. History and physical note * Donavan Estevez: PERFORM Event Display: History and Physical Authored Date: [id number] Chief Complaint ? Half-Way Facility Admission Note 12/30/2019 3:12 PM SALE, LLOYD??(??1950) ?? PRINCIPAL ??DIAGNOSES: 1.??Cholecystitis 2.??Intra-abdominal abscess 3.??Gait??disturbance 4.??Balance disturbance 5.??Weakness 6.??Need for assistance with personal care 7. HISTORY OF PRESENT ILLNESS: This is the??1st??[facility] Care admission for this??69-year-old gentleman admitted to [facility] December 18, 2019 presenting with abdominal pain. ? Over the past 5 months he has??recurrent gallbladder abscesses requiring percutaneous drainage,??and was transferred from an outside hospital with an abdominal wall abscess. ??Transfer with an abdominal wall abscess.?? CT imaging revealed??a large multilocular abscess along the??right upper??abdominal wall. ?? He was treated with broad-spectrum antibiotics and interventional radiology??performed percutaneousdrainage of the?abscess. ??Abscess cultures from aspirate?grew??drug-resistant??Escherichiacoli.?He was placed on a prolonged course of meropenem intravenously. ?? He was seen and evaluated by therapy and a subacute rehabilitation efforts recommended . ?? CARE HOME NEED: Intravenous antibiotics with unknown stop date/Physical therapy/Occupational therapy. ?? When examined today, he appeared comfortable and appropriate for therapy. ??No fever or chills werenoted. ??There is no chest pain or shortness of breath. ?? ALLERGIES:?? Penicillins?Hives ?? PAST MEDICAL HISTORY:?? 1.??TIA (transient ischemic attack) 2.??Hypertension 3.??Hyperlipidemia 4.??GERD (gastroesophageal reflux disease) 5.??Cholecystitis 6.??CHF (congestive heart failure)? 7.??BPH (benign prostatic hyperplasia) 8.??Atrial fibrillation? FAMILY HISTORY: ?? 1. Father is of lung cancer. 2.Mother: unknown? SOCIAL HISTORY:??Born in [place], he currently resides in a house in [facility] with his , Raine Guajardo ([phone]). 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 He is and 2 daughters and 3 grandchildren. ??Primary physician: Jean-Claude Crawford ([phone]). ?? Prior to hospitalization he lived in tri-level home with 2 stairs to enter main level of home that has living area with kitchen, dining room, and living room. There are no bathrooms on main level. There are 7 stairs to enter 2nd level of home where there are 3 bedrooms and 2 bathrooms.?? Previously he was modified independent with ADLs and using a walker for mobility since August 2019. Previously shared cooking, cleaning, and laundry tasks with . ?Principal insurance: ??[facility] Medicare Advantage insurance.? PERSONAL HABITS:??He has been smoking about 1.00 pack per day.?He does not currently consume alcohol to excess or utilize recreational drugs. ? REVIEW OF SYSTEMS:??As per history of present illness otherwise all systems negative ?? PHYSICAL EXAMINATION:??Height:?180.3 cm (5' 11 ) ;Weight: 76.7 kg (169 lb ). Normocephalic. ??Pupils are??equal.?Extraocular eye motion is normal.?Conjunctiva is pink.?There is no scleral icterus.?Oropharynx is clear.??Hearing is intact to the spoken word. Nares are patent with no d rainage.??Neck is supple and without lymphadenopathy or masses. ??There is no goiter. ??Heart has aregular rate and rhythm without murmurs.?Normal chest rise on inspection.?Normal respiratory effort is noted. ??Lungs are clear.?There is no audible wheezing.?Abdomen is soft and nontender. ??Right upper quadrant drain is in place. ??There is no hepatosplenomegaly. ??There is no guarding or rigidity. ??Extremities have no edema. ??Neurologic??exam is nonfocal. ??No significant rashes are noted. ??Skin turgor appears good. ??Mucous membranes are moist. ??Joints are without any active synovitis. ??Affect is appropriate.. ? IMPRESSION:??This is an unfortunate 67-year-old gentleman with acute and chronic cholecystitis withdeveloped multiple wall abscesses who presented with worsening abdominal pain. ??Interventional radiology drained his abscesses and a cholecystostomy bag was placed as well. ??He will complete a course of antibiotics here. ?We will obtain laboratories twice weekly to monitor his IV antibiotics and for invasive infectious disease clinic.This gentleman is quite weak and will derive significant benefit from a course ofsubacute rehabilitation efforts including physical and occupational I have reviewed the records sent by the referring facility for this??gentleman. ??I have also reviewed??his??online records.?He??suffers from a decrease in functional ability compared to preadmission status. We will commence a multidisciplinary effort to return??him to his??previous level of func tion??including??a course of physical and occupational therapy. Per mandate, a two-step PPD will be placed to screen for infectious tuberculosis. Interdisciplinary goals: Ambulation, transfers, wheelchair mobility, upper body dressing, lower body dressing, eating, bathing, grooming, toileting, pain management, safety (free from injury). For physical therapy we will initiate gait training, community mobility, balance and positioning aswell as coordination and fine motor control efforts.?He??will be seen in??therapy??6 days a week. ??The duration of each session will be assessed by the therapist??and proceed??as the patient's co ndition allows. For occupational therapy we will initiate upper body dressing, lower body dressing, eating, grooming toileting, functional range of motion as well as core strength and stabilization efforts. ??Balance and positioning, coordination, fine motor control will be attempted as well.?Goals are to improve independence with activities of daily living, increase strength, endurance, range of motion, and decrease pain. ??Therapy will be administered??6??days a week. ??The duration of therapy sessions ispredicated on??her??tolerance and the therapist???s??judgment. 24-hour nursing care will be provided to reinforce activities of daily living and mobility training, management of bowel and bladder issues, skin integrity, pain management, fall risk, and vital signs. ??Nutritional and social service consults will be requested as well.?? Overall goals of therapy include achieving and maintaining medical stability, safe and adequate nutrition and hydration and management of pain. Patient and caregiver education will be initiated. Dietary consultation will be requested with goals of optimizing??his??nutrition recognizing that patients in this situation frequently require modification of the??existing diet in order to optimallyheal. ??Medications will be continued as ordered on the transfer orders except as noted. ??A pharmacist??oracle bpm consultant??will review medications on a regular basis and assist in minimizing unnecessary medications, optimizing the effectiveness of the current medical regimen as well as identifying drug interactions, administration pitfalls and identifying best practices. Recreational therapy will be offered with goals of comfort, mind-body interaction and socialization. It is my professional medical opinion, judgment and rehabilitation experience that this??gentleman??meets medical necessity criteria for jail services. ??An interdisciplinary team approachof rehabilitation and education is necessary. He??can reasonably be expected to participate in and benefit from these rehabilitation efforts. We will review and update??his??plan of care at a weekly multidisciplinary meeting. ??I have certified??and signed the??need for jail services??affidavit. ?? This patient has ??diffuse weakness with decreased endurance, and limited capacity to sustain mental and physical effort. ??Moreover there is impaired safety with mobility, instability with standing/stance, communication impairments, balance/coordination deficits, strength deficits, dysphasia, risk for fall, impaired wound healing, impair impaired endurance, decreased independence with mobility, decreased independence with gait, impaired activity tolerance, decreased function in ADLs and basic self-care, transfer deficits, bed mobility deficits and the inability to participate in continuous activity. A care plan meeting will be arranged shortly so that the patient, family and caregivers can meet with nursing, therapy and social work to discuss ongoing issues and discharge planning. He is at moderate/high risk of medical complications due to the nature of the principal diagnoses and multiple comorbid medical problems Upon discharge from this facility??he??will likely require home health services.?In accordance with state and federal requirements, CODE STATUS was addressed.?After an appropriate??discussion of the issues at play,??FULL CODE STATUS is requested. The total time that I spent on this evaluation, examination and documentation of the initiation of this??man???s??plan of care was more than 75 minutes. ??During this time I reviewed medical records and counseled the patient and/or family regarding goals of care. ??The plan of care was discussed with the nursing staff and therapy as well. ? Donavan??Nikolas Tran [facility] [employer] [facility] [employer] Lab Technician, [facility] ?? Portions of this document were prepared using voice recognition software. ??There may be occasionalphonemic approximations, wrong words, misspellings and syntax errors. ??Please interpret in context. Not every sentence has been reviewed in its entirety .If there are any concerns about the verbage,please contact Dr. Estevez directly at [phone]. ? Physical Exam Vitals & Measurements T:??97.4?F??(Oral)?? TMIN:??97.4?F??(Oral)?? TMAX:??97.8?F??(Oral)?? HR:??98??(Peripheral)?? RR:??20?? BP:??115/72?? SpO2:??95%?? Problem List/Past Medical History Ongoing No qualifying data Historical No qualifying data Medications Inpatient acetaminophen, 1000 mg, Oral, q6hr, PRN Arginaid, 1 packet(s), Oral, BID Aspirin Enteric Coated, 325 mg, Oral, Daily cholecalciferol, 5000 IntlUnit(s), Oral, Daily dilTIAZem 360 mg/24 hours oral capsule, extended release, 360 mg= 1 cap(s), Oral, Daily folic acid, 1 mg, Oral, Daily levalbuterol 1.25 mg/3 mL inhalation solution, 1.25 mg, Inhale, TID magnesium oxide, 400 mg, Oral, Daily meropenem, 1000 mg, IV Piggyback, q8hr Metoprolol Tartrate, 50 mg, Oral, BID omeprazole, 20 mg, Oral, Daily ondansetron, 4 mg, Oral, q4hr, PRN polyethylene glycol 3350, 1 packet(s), Oral, Daily sodium chloride 0.9% irrigation solution, 10 mL, IRR, BID terazosin, 10 mg, Oral, Daily HS Thera M, 1 TAB, Oral, Daily thiamine, 100 mg, Oral, Daily Tubersol 5 tuberculin units/0.1 mL intradermal solution, 5 TU, ID, Once Home No active home medications Allergies penicillin Social History Electronic Cigarette/Vaping Electronic Cigarette Use: Never. Immunizations Vaccine Date Status tuberculin purified protein derivative 12/29/2019 Given Comments : Early/Late Reason: Flexible Med Pass Electronically Signed on 12/31/2019 09:09 AM CDT Donavan Estevez Nutrition and dietetics Consult note * Sada Gabriel: PERFORM, MODIFY Event Display: Dietary Consultation Authored Date: [id number] I received consult from AMARJIT with requesting diet edu follow-up. I called Raine today and discussed her 's current nutrition plan of care. She was happy to hear he is receiving Arginaid BIDand 2% milk for increased Pro to aide in wound healing. She reported he drinks Ensure Clear often 1bottle every morning with 1 c of coffee. I let her know he appears to be eating well 88%x1 week, however we can only estimate how much pro at each meal he is eating. She understood and asked if we could add 1x day clear ONS (noting milky Ensure caused side effect of phlegm). I let her know we wouldadd it today with breakfast trays going forward and that we weekly review how he is doing during a high risk IDT meeting (specific to wound healing and weight trends). She was happy to hear and thanked me for my time. Electronically Signed on 01/06/2020 02:43 PM CDT Sada Gabriel * Sada Gabriel: PERFORM Event Display: Dietary Consultation Authored Date: [id number] Boost Hira provides an additional 250kcal, 9g PRO, per 237mL vol Electronically Signed on 01/06/2020 02:44 PM CDT Sada Gabriel Modified by: Sada Gabriel on 01/06/2020 02:44 PM CDT Pharmacology Progress note * Sharonda Das [facility]: PERFORM Event Display: Pharmacy Progress Note Authored Date: [id number] Pharmacy Progress Note Based upon the information available at the time of the review, and assuming the accuracy and completeness of such information, it is my professional judgment that at such time, the resident???s medication regimen contained no new irregularities (as defined in JOSE RAFAEL Appendix PP ??483.45 (??). For purposes of the forgoing statement, the term irregularity means an event or circumstances that substantially inconsistent with customary, accepted clinical approaches to providing pharmaceutical products and services, or that could reasonably be expected to impede or interfere with the achievement ofintended or reasonably expected outcomes. Electronically Signed on 01/11/2020 06:41 PM CDT Sharonda Das RPh Nurse Progress note * Rashid Doll LPN: PERFORM Event Display: Progress Note-Nurse Authored Date: [id number] Pt was lowered to the floor by PT during transfer. Pt denies any dizziness or pain at the time of incident. Pt stated, my legs just gave out. VS take while sitting on the floor and were WNL. Pt wasassisted up to bedside with gaitbelt and assist x2. No change from baseline observed. NAIs at this time. PCP notified with NNOs received. Voice message left for spouce requesting a return call. Electronically Signed on 01/13/2020 10:22 AM CDT Rashid Doll LPN Note * Taylor Watkins Staff. Dev. Coord.: PERFORM Event Display: Wound Note* Authored Date: [id number] * Donavan Estevez: PERFORM Event Display: Progress Note-Physician Authored Date: [id number] [facility] Admission Note 01/13/2020 10:12 AM LLOYD GUAJARDO ( 1950) ?? PRINCIPAL ??DIAGNOSES: 1. Cholecystitis 2. Intra-abdominal abscess 3. Gait disturbance 4. Balance disturbance 5. Weakness 6. Need for assistance with personal care ?? HISTORY OF PRESENT ILLNESS:?The??69-year-old gentleman admitted to [facility] December 18, 2019??presenting with abdominal pain. ?? Over the??previous??5 months he has??had??recurrent gallbladder abscesses requiring percutaneous drainage, and was transferred from an outside hospital with an abdominal wall abscess. CT imaging revealed a large multilocular abscess along the right upper abdominal wall. ?? He was treated with broad-spectrum antibiotics and interventional radiology performed percutaneous drainage of the ?? abscess. ??Abscess cultures from aspirate??grew drug-resistant??Escherichia coli.??He was placed on a prolonged course of meropenem intravenously. ?? He was seen and evaluated by therapy and a subacute rehabilitation efforts recommended . ?? CARE HOME NEED: Intravenous antibiotics with unknown stop date/Physical therapy/Occupational therapy. ? When examined today, he appeared comfortable and appropriate for therapy. ??No fever or chills werenoted. ??There is no chest pain or shortness of breath. ? Nursing staff report the patient is doing well. ??Oral intake is reported to be good. They report no agitation or combativeness. ??There have been no perigrinations. ??There is no indication of pain reported. Therapy staff report the patient is making modest gains with therapy efforts: Mr. Guajardo is ambulating 100ft x2?? standby assistance/contact guard assistance using a wheeled walker.?? He is contact guard assist / standby assist with sitting and standing as well as pivot transfers.?? He is independentwith supine to sitting.?? He has been able to go up for stairs with hand rails.?? balance is rated as fair to fair plus.?? He is independent with upper extremity dressing, grooming and feeding.?? He does require setup for feeding.?? He requires contact guard assist with lower extremity dressing andtoileting tasks.?? Additionally clothing removal is contact guard assist. . On January 03, he saw surgery: ?? ASSESSMENT:?69 y.o.??male??with complicated cholecystitis treated with several percutanous drains that has been recurrent in nature.?Based on his cholangiogram today, he has a persistent abscess cavity but no communication with the biliary tree.??He had a drain exchange. ?? PLAN:?He will see IR in 2 weeks for drain re-evaluation. Currently his nutrition is poor, albumin is 2.2. At this time it appears that the gallbladder perforation has sealed and the abscess cavityhas decreased in size though not resolved completely. The patient is asymptomatic from a biliary standpoint without any jaundice or biliary colic symptoms. At this time I feel that the best course would be to continue to follow with IR until they feel that the abscess cavity is obliterated and thenremove the drain. From a surgical standpoint the patient is asymptomatic and needs to improve his nutritional standpoint before I would consider doing a cholecystectomy.? Eugene Gomez M.D., F.A.C.S. ?PHYSICAL EXAMINATION GENERAL: This is a well- developed, well nourished age appropriate patient in no acute distress. The patient is alert and oriented x3. Pleasant and cooperative. PSYCHIATRIC: Mood is euthymic. Affect appears appropriate.?? EYES: Anicteric sclera. Extraocular movements appear intact. EAR, NOSE, THROAT: Hearing is intact to the spoken word. Nares are patent with no drainage. RESPIRATORY: There is equal chest rise on inspection. Breathing is non-labored with no audible wheezing. CARDIOVASCULAR: Radial pulses are 2+ and symmetrical. There is no upper extremity lymphedema. ABDOMEN:Nondistended. ??Cholecystostomy bag is draining bilious fluid. SKIN: No obvious skin lesions or rashes are noted. Skin is warm to touch. ?? IMPRESSION: ??67-year-old gentleman with acute and chronic cholecystitis who developed multiTheple wall abscesses. ??Interventional radiology drained his abscesses and a cholecystostomy bag was placed as well. ??He is completed his course of antibiotics. ??Surgery recommends continued drainage and improvement of nutrition prior to planning definitive cholecystectomy. ??Abscess is still draining. This patient continues to suffer from a severe decrease in functional ability compared to preadmission status. We will continue our multidisciplinary effort to return this patient to the previous level of function. ??We will continue with a course of physical and occupational therapy. Interdisciplinary goals: Ambulation, transfers, wheelchair mobility, upper body dressing, lower body dressing, eating, bathing, grooming, toileting, pain management, safety (free from injury). For physical therapy we will continue gait training, community mobility, balance and positioning aswell as coordination and fine motor control efforts. ??The patient will continue to be seen in 6 days a week . ??The duration of each session will be assessed by the therapist as the patient's condition allows. For occupational therapy we will continue upper body dressing, lower body dressing, eating, grooming toileting, functional range of motion as well as core strength and stabilization efforts. ??Balance and positioning, coordination, fine motor control are being attempted as well. ??Therapy will continue to be administered 5 days a week. ??The duration of therapy sessions is predicated on the patient's tolerance and the therapist judgment. ??24-hour nursing care should continue to reinforce activities of daily living and mobility training, management of bowel and bladder issues, skin integrity, pain management, fall risk, and vital signs. ??municipal services manager continues to assist the patient with discharge planning. Overall goals of therapy remain achieving and maintaining medical stability, safe and adequate nutrition and hydration and management of pain. Patient and caregiver education are on going. Dietary consultation continues to be used to optimize nutrition recognizing that patients in this situation require modification of pre-existing diet in order to optimally heal. ??Medications have been continued as ordered on the transfer orders except as noted. ??Our staff Pharm.D. continues to review medications on a regular basis and assist in minimizing unnecessary medications, optimizing the effectiveness of the current medical regimen as well as identifying drug interactions, administration pitfalls and identifying best practices. Recreational therapy will be continued with goals of comfort, mind-body interaction and socialization. It is my professional medical opinion, judgment and rehabilitation experience that this patient continues to meet medical necessity criteria for jail services. ??An interdisciplinary team approach of rehabilitation and education remains necessary. This patient can reasonably be expected to participate in and benefit from these rehabilitation efforts. We will continue to review and update this patient's plan of care at a weakly multidisciplinary meeting. ??I have recertified this patient's need for jail services. ? Donavan Estevez MD [facility], [employer] Lab Technician ? Portions of this document were prepared using voice recognition software. There may be occasional phonemic approximations, wrong words, misspellings and syntax errors. Please interpret in context. Not every sentence has been reviewed in its entirety .If there are any concerns about the verbage, please contact Dr. Esteevz directly at [phone]. Electronically Signed on 01/13/2020 09:59 AM CDT Donavan Estevez donation worker Progress note * Caryn Das: PERFORM Event Display: Senior Analytical Chemist Progress Note* Authored Date: [id number] On 01/12 patient and Raine Guajardo, , p:[phone] selected LCD 01/13 with discharge date of Sunday 01/14. Due to less than 48 hours notice of discharge based on family selection no NOMNC will be issued at this time. On 01/07 sent information on private duty agencies and for respite stays to spouse ([email or web address]) via email. Discharge plan is to return to tri-level home with Raine ([address] [place] [address]). There are 2 stairs to enter main level of home. There are no bathrooms on main level. There are 7 stairs to enter 2nd level of home where there are 3 bedrooms and 2 full bathrooms. will leaf size picker patient on Sunday 01/14 between [id number]. will take patient to appointment and then transport him home. PCP: Jean-Claude Crawford phone: [phone] Pharmacy: [facility] address: [address] [place] [address] phone: [phone] Patient owns wheeled walker. There are no equipment needs at this time. [facility] p: [phone] f:[phone] will follow for home health services with start of care on 01/20. On 01/14 discharge paperwork was faxed to agency. There are no additional discharge needs at this time. Electronically Signed on 01/15/2020 09:24 AM CDT Caryn Das Discharge summary * Jaci Gabriel: MODIFY, PERFORM Event Display: Discharge Summary Authored Date: [id number] Admission Information PRINCIPAL ??DIAGNOSES: 1. Cholecystitis 2. Intra-abdominal abscess 3. Gait disturbance 4. Balance disturbance 5. Weakness 6. Need for assistance with personal care ?? HISTORY OF PRESENT ILLNESS:?The??69-year-old gentleman admitted to [facility] December 18, 2019??presenting with abdominal pain. ?? Over the??previous??5 months he has??had??recurrent gallbladder abscesses requiring percutaneous drainage, and was transferred from an outside hospital with an abdominal wall abscess. CT imaging revealed a large multilocular abscess along the right upper abdominal wall. ?? He was treated with broad-spectrum antibiotics and interventional radiology performed percutaneous drainage of the ?? abscess. ??Abscess cultures from aspirate??grew drug-resistant??Escherichia coli.??He was placed on a prolonged course of meropenem intravenously. ?? He was seen and evaluated by therapy and a subacute rehabilitation efforts recommended. ?? Since his admission to this facility he has done well. He is ambulating 100+ feet with a wheeled walker. He is able to complete his ADLs mostly independently. He still struggles with urinary incontinence. He had an appointment with surgery with drain removal. He will be discharging home today with his . Hospital Course ?? Procedures and Treatment Provided Physical therapy, occupational therapy, jail, social staff worker, respiratory therapy, speech therapy,?? Physical Exam Vitals & Measurements T:??97.2?F??(Oral)?? TMIN:??97.2?F??(Oral)?? TMAX:??98.1?F??(Oral)?? SpO2:??96%?? GENERAL: Alert and oriented x 3. No apparent distress. Pleasant and cooperative. PSYCHIATRIC: Mood is euthymic. Affect appears appropriate. EYES: Anicteric sclera and moist conjunctiva. Extraocular movements appear intact. EAR/NOSE/THROAT: Hearing intact to spoken word. Nares patent, with no drainage.?? RESPIRATORY: Equal chest rise on inspection. Breathing is non-labored, with no audible wheezing CARDIOVASCULAR: Distal pedal pulses were present and symmetric in the bilateral lower extremities. No lower extremity edema. SKIN: No skin lesions or rashes noted. Warm to touch. GASTROINTESTINAL: Abdomen soft, non-tender, non-distended, no masses palpated. Discharge Plan I had a [id number] visit with this patient today and believe that??this patient is in need of home health services.?The patient is homebound secondary to decreased functional status secondary todeconditioning, generalized weakness with decreased endurance and increased fatigue.?Based on these findings it would benefit??the patient for continued home health care including registered nurse, PT , OT and speech therapy services. 1.??Calculus of gallbladder and bile duct with acute and chronic cholecystitis without obstruction 2.??Cutaneous abscess of abdominal wall 3.??Paroxysmal atrial fibrillation All Diagnoses This Visit Calculus of gallbladder and bile duct with acute and chronic cholecystitis without obstruction Cutaneous abscess of abdominal wall Paroxysmal atrial fibrillation Difficulty in walking, not elsewhere classified Essential (primary) hypertension Need for assistance with personal care Other lack of coordination Weakness Patient Discharge Condition Stable Discharge Disposition Mr. Guajardo will discharge to his home with family and home health support. Electronically Signed on 01/15/2020 09:06 AM CDT Jaci Gabriel Modified by: Jaci Gabriel on 01/15/2020 09:06 AM CDT Patient Care team information Care Team Related Persons Name: ORQUIDEA GUAJARDO Address: Home Name: DUDLEY GUAJARDO Address: Home
--- OUTSIDE RECORDS SUMMARY | 2024-04-08 10:31 | XMS_ITS | Patient Health Summary ---
Author Organization [facility] Address [address] [place] [address] Care Team Providers Care Tuber Machine Operator Helper Name Role Phone Unavailable Primary Care Provider Unavailabl e Note from [facility],non-owned Affiliates and Associated Physician Practices is amultiple site organization consisting of ambulatory clinics and hospital sitesin [place], [place], [place] and [place]. This disclosure is being madepursuant to the Care Everywhere program and may not contain all information available regarding this patient. Last updated 17.[facility] Active Problems Problem Noted Date Diagnosed Date Intracranial hemorrhage 06/11/2021 Social History Tobacco Use Types Packs/Day Years Used Date Smoking Tobacco: Never Assessed Sex and Gender Information Value Date Recorded Sex Assigned at Not on file Gender Identity Not on file Sexual Orientation Not on file
--- OUTSIDE RECORDS SUMMARY | 2024-04-08 10:31 | XMS_ITS | Clinical Summary ---
[facility] D Address [facility] [place] [address] Care Team Providers Care Behavioral Psychologist Name Role Phone Jean-Claude Crawford MD Unavailable [phone] Jessie Delvalle MD Unavailable + Sandip Barone MD Unavailable [phone] Carey Dorsey ACTIVITIES THERAPIST Primary Care Provi jovanny Allergies Active Allergy Reactions Criticality Noted Date Comments Penicillins Hives,Rash Medium 05/15/2023 Medications cholecalciferol (VITAMIN D-3) 5,000 unit tabletIndicatio ns:Vitamin D Deficiency Take 1 tablet (5,000 Units total) by mouth every other day Active acetaminophen (TYLENOL) 325 mg tablet Take 2 tablets (650 mg total) by mouth every 4 (four) hours as needed for pain 30 tablet 2 Active ramelteon (ROZEREM) 8 mg tabletIndicatio ns:Sleep-Onset Insomnia Take 1 tablet (8 mg total) by mouth nightly 30 tablet 11 2 Active aspirin 81 mg enteric coated tablet Take 1 tablet (81 mg total) by mouth daily Active albuterol 2.5 mg /3 mL (0.083 %) nebulizer solution Take 3 mL (2.5 mg total) by nebulization every 6 (six) hours as needed for wheezing Active folic acid (FOLVITE) 1 mg tablet Take 1 tablet (1 mg total) by mouth daily Active senna (SENOKOT) 8.6 mg tablet Take 1 tablet by mouth 2 (two) times a day Active terazosin (HYTRIN) 10 mg capsule Take 1 capsule (10 mg total) by mouth daily Active amLODIPine (NORVASC) 5 mg tablet Take 1 tablet (5 mg total) by mouth daily 30 tablet 11 2 Active atorvastatin (LIPITOR) 10 mg tablet Take 1 tablet (10 mg total) by mouth nightly Active divalproex DR (DEPAKOTE) 250 mg EC tablet Take 125 mg by mouth 3 (three) times a day as needed (Increasing agitation) Active fluticasone propion-salmete roL (ADVAIR DISKUS) 100-50 mcg/dose diskus inhaler Inhale 1 puff daily Rinse mouth with water after use. Do not swallow. Active metoprolol (LOPRESSOR) 100 mg tabletIndicatio ns:Atrial fibrillation, unspecified type (HCC) Take 1 tablet (100 mg total) by mouth 2 (two) times a day 180 tablet 3 3 Active losartan (COZAAR) 100 mg tablet 3 Active L. acidophilus/L. bifidus (LACTOBACILLUS ACIDOPH-L. BIFID ORAL) Take by mouth Acti ve omeprazole (PriLOSEC) 20 mg capsule Take 1 capsule (20 mg total) by mouth daily Active fluticasone propion-salmete roL (ADVAIR DISKUS) 100-50 mcg/dose diskus inhaler Inhale 1 puff 2 (two) times a day Rinse mouth with water after use. Do not swallow. Active Active Problems Problem Noted Date Diagnosed Date Closed 3-part fracture of pr oximal humerus, right, initial encounter 08/02/2022 Frequent falls 07/29/2022 A-fib ([facility]) 07/17/2022 Sepsis due to COVID-19 ([facility]) 10/04/2021 Falls, subsequent encounter 09/25/2021 Assessment & Plan (09/25/2021 4:18 PM CDT): Multiple falls, continues to have severe debilitating weakness, L hip IT fracture repair within past 3 months, Consult with restorative physical therapy. Borderline hyperglycemia 08/23/2021 Assessment & Plan (08/23/2021 3:30 PM CDT): Resident has had elevated blood sugars her random blood testing. Will get a hemoglobin A1c. Dementia 07/21/2021 Assessment & Plan (07/21/2021 3:03 PM CDT): Resident has marked confusion. Limited insight. He is cooperative with plan of care he spends most the time passively sleeping lying in bed. He denies any pain at this time. He has no pain when I palpate his incision area or move his left leg. COPD (chronic obstructive pulmonary disease) 10/2021 Assessment & Plan (08/23/2021 3:32 PM CDT): Resident with COPD continue inhalers at this time. He has no increased productive cough no shortness of breath at rest. He has been afebrile. Stable Assessment & Plan (08/04/2021 4:13 PM CDT): Currently stable continue inhalers. He has not needed a updraft treatments. He has had no fever chills no increased productive cough no shortness of breath at rest. And no orthopnea. He is not O2 dependent his O2 sats have remained 95+ Assessment & Plan (07/28/2021 1:19 PM CDT): Continue incentive spirometry, chest x-ray clear, Breo Ellipta daily. Assessment & Plan (07/13/2021 1:58 PM CDT): Continue incentive spirometry, Breo Ellipta daily. Benign prostatic hyperplasia with lower urinary tract symptoms 07/13/2021 Assessment & Plan (08/23/2021 3:32 PM CDT): History BPH he is on Hytrin continue the same. He is voiding. He denies any frequency urgency however the he has limited insight and recall. I he is incontinent at times Assessment & Plan (07/13/2021 2:07 PM CDT): terazosin 10 mg p.o. nightly. Acute on chronic anemia 07/05/2021 Thrombocytopenia 07/05/2021 Assessment & Plan (07/13/2021 2:10 PM CDT): Thrombocytopenia, this is thought in the setting of surgery and reactive, Anemia, hemoglobin baseline 10-12 postop 10.3. TBI (traumatic brain injury) 06/29/2021 Assessment & Plan (08/04/2021 4:19 PM CDT): Resident status post fall with the on bleed. He has marked confusion. He is staff reports he has no boundaries no parameters. He gets up he falls. He has had no injuries. He has very limited insight he is very guarded and animated when questioning. His vision is poor. He sees light dark shadows. He cannot see to read or watch TV according to his . His hearing is diminished but functional speech is clear. He is on regular diet with pureed texture and thin liquids. He has had no episodes of coughing choking. At this time will DC ramlteon 8mg hs and prescribed melatonin 5 mg at HS. May be contributing to some of his confusion. Assessment & Plan (07/28/2021 12:42 PM CDT): Resident is status post fall at home with a bleed and brain. He has some increased confusion since that fall. He has had no change in his condition since that fall. Discussed with his charge nurse. The [employer] and his at length. There has been no significant change in his cognition his functional ability. He remains pleasantly confused he is legally blind he can barely see. His hearing is diminished. I talked to him about needing assistance with any transfers and mobility. His safety awareness is not good. Asked him to call for help when he needs to ambulate. He has had no issues with incontinence. He is voiding his says he has always been continent of urine. I he is currently on Lovenox. I he had been on Eliquis in the past due to his atrial fibrillation. He is on no other anticoagulants at this time. Given his continued fall risk him stopping the Lovenox of start him on aspirin 81 mg daily And not restart his Eliquis at this time. I discussed this with his she is in agreement we know the risk benefits. SAH (subarachnoid hemorrhage) ([facility]) 06/30/19 Assessment & Plan (08/04/2021 4:11 PM CDT): There has been no evidence of any decline in his cognition or motor function or sensory. Encephalopathy 06/29/2021 Assessment & Plan (07/28/2021 1:18 PM CDT): Delirium precautions, maintain sleep wake cycle, continue trazodone 100 mg p.o. nightly. Assessment & Plan (07/13/2021 1:58 PM CDT): Traumatic brain injury, with SAH, intraventricular hemorrhage. -neuro checks q.4 hours and, -Keppra started 500 mg b.i.d. for 7 days, - head CT repeat on 07/02 showed decreasing IVH, Neurosurgery signed off. Encephalopathy thought to be multifactorial in the setting of alcohol withdrawal, he received Librium and there was consideration for possible Wernicke's and given supplements with folic acid and thiamine, neurology were consulted and delirium precautions, -infectious disease workup was negative, - he was treated with thiamine and multivitamin. Acute delirium 06/29/2021 Assessment & Plan (07/13/2021 2:09 PM CDT): Delirium precautions, maintain sleep wake cycle, continue trazodone 100 mg p.o. nightly. Scrotal abscess 06/29/2021 Assessment & Plan (07/13/2021 2:05 PM CDT): Bacteroides fragilis, scrotal abscess and cellulitis, he had ultrasound of the scrotum on 06/17 which showed left hydrocele and cellulitis. CT of the pelvis with contrast, was positive for small left scrotal hydrocele and negative for soft tissue gas and positive for nondisplaced trochanteric fracture. Urology were consulted and suggested a 10 day course of antibiotics. Completed antibiotic treatment with Flagyl and Bactrim. Closed nondisplaced intertro chanteric fracture of left femur 06/29/2021 Assessment & Plan (08/23/2021 3:33 PM CDT): Fracture is healed he is weight-bearing as tolerated he needs standby assist you to his poor balance strengths coordination and safety awareness Assessment & Plan (08/04/2021 4:11 PM CDT): He is weight-bearing as tolerated he needs contact guard assist with all transfers and mobility. He is very unstable. He has limited insight judgment and safety awareness. He tries to get out of bed on his own. He has had some falls without any obvious injuries. Assessment & Plan (07/28/2021 12:44 PM CDT): Resident is weight-bearing as tolerated his incisions are well healed. Woodbridge are out. He is doing well with regard to his rehab. He is a fall risk. He has low vision. His hearing is diminished. His insight and judgment is poor. I talked to his about his cognition she said he is not as oriented as he was prior to his fall. I will continue with rehab with anticipation of possibility of him returning home. She is not in the best of health as well. I he may need intermediate her long- term support after finishing his rehab. Assessment & Plan (07/21/2021 3:02 PM CDT): Resident status post ORIF left hip. He had some increased redness around the incision in the breann last week. He was started on doxycycline 100. He has completed that today the wounds have no more redness. At all. Woodbridge are in place incision appears to be well approximated and healing well. He has no swelling of that extremity and no induration around the incision. No calf tenderness. Assessment & Plan (07/17/2021 3:19 PM CDT): Resident with a left femur fracture status post ORIF. He has 3 incisions on his lateral hip and groin area. All of them appear to be red around the breann. We are asked to see him today he has no induration no heat no for fluctuance and no exudate no drainage. Incision is well approximated with no gaps in the incision and no drainage. Breann only been there in less than a week surgeon wants him in until July 25. Appears that he is reacting to the stable since surgeon wants them in that long we will start him on bacitracin ointment and doxycycline 100 mg twice daily for 7 days. Continue monitor his incision. Night his pain control is adequate. Assessment & Plan (07/13/2021 2:04 PM CDT): Left IT fracture, he had a MRI of the left hip which showed a nondisplaced proximal IT fracture with intramedullary nailing of femur intertrochanteric left upper leg, with orthopedic intervention on 07/04, - with left lower extremity weight-bearing as tolerated. - he was treated with Ancef preoperatively. - daily dry dressing changes and breann are to be removed on 07/25, - follow-up with Dr. Delvalle. -Daily dry dressing. Weight-bearing as tolerated -pain management is with Tylenol 650 mg p.o. q.4 hours p.r.n. for pain, Lovenox for DVT prophylaxis. Dysphagia 06/29/2021 Assessment & Plan (08/04/2021 4:12 PM CDT): He has some dysphagia. Unclear whether had them before his injury. He is on a regular diet with pureed textures foods with thin liquids. I he has had no choking episodes. No reported cough congestion. His oral intake is fair Assessment & Plan (07/13/2021 2:02 PM CDT): Dysphagia diet 1. Diet with no liquids NG tube was placed and removed on 06/29 , he was on 2 L IV fluid hydration, - small-bowel follow-through was done on 06/30 and order removed 07/01 he is on thin liquids, takes medications crushed in pureed and regular thin liquids. Orthostatic hypotension 06/29/2021 Acute respiratory failure 06/29/2021 Atrial fibrillation (CMS/HCC) 06/15/2020 Assessment & Plan (09/25/2021 4:08 PM CDT): Blood pressure /and heart rate is stable, SBP upto 160s/98-> improved since norvasc 10 mg po q day added, pulse 68-88/min, Aspirin 81 mg po qday, Metoprolol tartrate 100 mg po b.i.d, Follow with cardiology. Assessment & Plan (08/02/2021 12:37 PM CDT): Rates controlled, now off anticoagulation due to recent intracranial hemorrhage. Once he is able to be anticoagulated for six weeks would be reasonable to pursue Watchman. Discussed this at length with patient and his . Assessment & Plan (07/28/2021 12:43 PM CDT): Resident with a history of atrial fib he was on Eliquis in the past. He is on Lovenox currently were DC in Lovenox were not starting Eliquis. Will start aspirin 81 mg daily he is a high risk for falls. And has had a recent fall with brain bleed. I have discussed this with his . His rate currently is well controlled with metoprolol and he is in a regular rhythm. Discussed the benefits and risks to his spouse and she is in agreement of this he and anticoagulants at this time. Assessment & Plan (07/13/2021 2:01 PM CDT): Treated with amiodarone drip and transition to metoprolol 100 mg p.o. b.i.d. with RVR in 160s, -treated with 5 mg IV metoprolol and Ringer lactate bolus 1 L. Syncope workup was done with orthostatics, and TTE which was unrevealing, orthostatics were positive received 2 L of fluid, carotid duplex showed less than 50% stenosis bilaterally. Assessment & Plan (01/25/2021 12:44 PM CDT): Rates controlled, continue anticoagulation, discontinue carvedilol and increase metoprolol dose. 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 Suspect need higher dose of beta-edmund, however, will assess further with Holter. Further recommendations forthcoming. Continue anticoagulation. Chronic systolic heart failure ([facility]) 021 Assessment & Plan (08/02/2021 12:36 PM CDT): Likely tachycardia mediated, now resolved with normal LV function. Continue beta-edmund. Assessment & Plan (07/13/2021 2:00 PM CDT): Chronic systolic heart failure, Follows with cardiology, He is on asymptomatic mild left ventricular dysfunction with tachycardia, most recent EF was 70-75% Metoprolol was increased to 100 mg p.o. b.i.d., home dose of lisinopril was held and restarted. Assessment & Plan (01/25/2021 12:45 PM CDT): Asymptomatic mild LV dysfunction, suspect tachycardia mediated, will reassess echo when seen back in six months. Continue beta-edmund and BRENNON Assessment & Plan (06/15/2020 2:28 PM LIMEHOUSE WORKER): Previously mild last assessed in July last year, likely tachycardia mediated but significant risk factors for CAD in no recent ischemic evaluation. I would favor pharmacologic stress SPECT. Seems to be tolerating current guideline medical therapy. Needs to have a follow-up BMP. Reassess LV function with echo. Further recommendations forthcoming. Cholecystitis 06/14/2020 Overview (06/14/2020): Added automatically from request for surgery [id number] DVT (deep venous thrombosis) ([facility]) 0 Intra-abdominal abscess ([facility]) 12/28/2019 Hypercholesterolemia 04/26/2010 Assessment & Plan (09/25/2021 4:13 PM CDT): Lipid panel is within normal limits. Continue Pravastatin 40 mg po day. Hypertension 04/26/2010 Assessment & Plan (08/02/2021 12:36 PM CDT): Normotensive on current therapy Assessment & Plan (07/28/2021 1:21 PM CDT): Holding lisinopril 40 mg, resume when sbp> 130/80 mmhg ,continue pravastatin 40 mg daily. Metoprolol tartrate 100 mg po b.i.d. Assessment & Plan (07/13/2021 2:06 PM CDT): Holding lisinopril 40 mg resume when sbp> 130/80 mmhg ,continue pravastatin 40 mg daily. Heartburn 04/26/2010 Assessment & Plan (07/13/2021 2:08 PM CDT): Continue pantoprazole 40 mg p.o. daily. Septic shock Resolved Problems Problem Noted Date Diagnosed Date Resolved Date Cholecystitis 12/20/2019 07/15/2020 Immunizations Name Administration Dates Next Due Influenza, Quadrivalent, Hig h Dose, Preservative Free, Intrr 02/20/2020 Surgical History Surgery Date Site/Laterality Comments FLUID DRAIN SOFT TISSUE 12/19/2019 N/A ABSCESS CATHETER INJECTION 12/25/2019 N/A ABSCESS CATHETER INJECTION 01/04/2020 N/A ABSCESS CATHETER INJECTION 01/15/2020 N/A IR CHOLANGIOGRAM THROUGH EXISTING CATHETER 02/04/2020 N/A CHOLECYSTECTOMY VASECTOMY CIRCUMCISION CATARACT EXTRACTION, BILATERAL CATARACT EXTRACTION Medical History Medical History Date Comments Atrial fibrillation (CMS/HCC) (HCC) Hypertension Hyperlipidemia CHF (congestive heart failur e) (CMS/HCC) (HCC) GERD (gastroesophageal reflu x disease) BPH (benign prostatic hyperplasia) TIA (transient ischemic attack) Cholecystitis Blind legally blind Chronic anemia Acute cholecystitis Anxiety CHF (congestive heart failur e) (CMS/HCC) (HCC) BPH (benign prostatic hyperplasia) Alcohol use COPD (chronic obstructive pu lmonary disease) (HCC) HTN (hypertension) Histoplasmosis Reportedly retin al histoplasmosis and very poor baseline vision/legally blind Vitamin D deficiency Acute delirium 06/29/2021 Acute respiratory failure (HCC) 06/29/2021 Family History Medical History Relation Name Comments Cancer Father Lung cancer Father Hypertension Mother Anesthesia problems Neg Hx Relation Name Status Comments Father (Age 70) Mother Alive Other Sibling Other Polio Social History Tobacco Use Types Packs/Day Years Used Date Smoking Tobacco: Former Cigarettes 1 57 1 966 - 04/2022 Smokeless Tobacco: Never Alcohol Use Standard Drinks/Week Comments Yes 4 (1 standard drink = 0.6 oz pur e alcohol) limited Social Connection and Isolation Panel [NHANES] A nswer Date Recorded In a typical week, how many times do you talk on the phone with family, friends, or neighbors? Three times a week 07/31/2022 How often do you get togethe r with friends or relatives? Never 07/31/2022 How often do you attend chur ch or jain services? Never 07/31/2022 Do you belong to any clubs o r organizations such as voodoo groups, unions, fraternal or athletic groups, or school groups? No 07/31/2022 How often do you attend meet ings of the clubs or organizations you belong to? Never 07/31/2022 Are you , , di vorced, , never , or living with a partner? 07/31/2022 AUDIT-C Answer Date Recorded Q1: How often do you have a drink containing alcohol? Never 07/30/2022 Q2: How many drinks containi ng alcohol do you have on a typical day when you are drinking? Patient does not drink Q3: How often do you have si x or more drinks on one occasion? Never 07/30/2022 Overall Financial Resource Strain (CARDIA) Answe r Date Recorded How hard is it for you to pa y for the very basics like food, housing, medical care, and heating? Somewhat hard 07/31/2022 Hunger Vital Sign Answer Date Recorded Within the past 12 months, y ou worried that your food would run out before you got the money to buy more. Never true 08/01/19 23 Within the past 12 months, t he food you bought just didn't last and you didn't have money to get more. Never true 07/31/2022 PRAPARE - Transportation Answer Date Re corded In the past 12 months, has l ack of transportation kept you from medical appointments or from getting medications? No 07/08 In the past 12 months, has l ack of transportation kept you from meetings, work, or from getting things needed for daily living? No 07/31/2022 Housing Stability Vital Sign Answer Darren e Recorded In the last 12 months, was t here a time when you were not able to pay the mortgage or rent on time? No 07/31/2022 Number of Places Lived in the Last Year Not on f ile 07/31/2022 In the last 12 months, was t here a time when you did not have a steady place to sleep or slept in a fci (including now)? No 07/31/2022 Personal Safety Answer Date Recorded Have you ever been in or are you currently in a harmful physical or emotional relationship or is someone making you feel afraid or unsafe? 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 Sex Male 9:10 PM LIMEHOUSE WORKER Gender Identity Not on file Sexual Orientation Not on file Obstetrics History Last Filed Vital Signs Vital Sign Reading Time Taken Comments Blood Pressure 114/82 05/15/2023 12:14 PM LIMEHOUSE WORKER Pulse 85 05/15/2023 12:14 PM LIMEHOUSE WORKER Temperature 36.1 ??C (97 ??F) 08/29/2022 10:02 AM CDT Respiratory Rate 19 08/29/2022 10:02 AM CDT Oxygen Saturation 90% 05/15/2023 12:14 PM LIMEHOUSE WORKER Inhaled Oxygen Concentration - - Weight 81.6 kg (180 lb) 05/15/2023 12:14 PM LIMEHOUSE WORKER Height 180.3 cm (5' 11 ) 05/15/2023 12:14 PM LIMEHOUSE WORKER Body Mass Index 25.1 05/15/2023 12:14 PM LIMEHOUSE WORKER Plan of Treatment Health Maintenance Due Date Last Done Comments Colon Cancer Screening-Colonoscopy 1950 Depression Screening 1950 Pneumococcal vaccine 65+ (1 of 2 - PCV) 1957 DTaP/Tdap/Td Vaccine (1 - Tdap) 1962 Hepatitis B Screening 1969 Lung Cancer Screening 2001 Zoster Vaccine (1 of 2) 2001 Well Visit 65+ 2016 Fall Risk Assessment 08/30/2023 08/29/2022 Influenza Vaccine (#1) 2023 02/20/2020 Abdominal Aortic Aneurysm (AAA) Screen Completed , 03/26/2020 Hepatitis C Screening Completed 06/12/2021 Medical Devices Implanted Type Area Leather Craftsman Device Identifier Shelf Expiration Date Model / Serial / Lot ToonTime Flx Procedure Device Wmflxperproc - S0 - [id number] Implanted:Qty: 1 on 07/17/2022 by Pedro Luis Mccormack MD at [facility] Left Atrial Appendage Occluder N/A: Atrial Appendage [employer] [place] 04/24/2025 [id number] C / 0 / [id number] [employer]hew/Rich[employer]/O rtho [id number] n 44cm 13mm Left Intertrochanter 130d 1.5mm Nail - [id number] Implanted:Qty: 1 on 07/04/2021 by Jessie Delvalle MD at [facility] Left: Femur [employer] /Ortho 09/15/2030 [id number] / / [employer]hew/[employer]/O rtho Intertan 4.5mm 95mm 90mm Lag Compression Integrated Interlocking [id number] - [id number] Implanted:Qty: 1 on 07/04/2021 by Jessie Delvalle MD at [facility] Left: Femur [employer] /Ortho 05/14/2031 [id number] / / [employer]/O rtho [id number] 5mm 52.5mm Low Profile Internal Hex Femur Screw Bone Trigen - [id number] Implanted:Qty: 1 on 07/04/2021 by Jessie Delvalle MD at [facility] Left: Femur [employer] /Ortho [id number] / / [employer]/O rtho [id number] Trigen 5mm 62.5mm Low Profile Femur Screw Bone - [id number] Implanted:Qty: 1 on 07/04/2021 by Jessie Delvalle MD at [facility] Left: Femur [employer] /Ortho [id number] / / [employer]/O rtho Intertan 11.5mm 20cm Trochanteric 125d Nail Intramedullary [id number] - [id number] Implanted:Qty: 1 on 10/08/2021 by Miguel Flores MD at [facility] Right: Femur [employer] /Ortho [id number] 09/21/2030 [id number] / / [id number] [employer]/O rtho Intertan 11mm 90mm Lag Subtrochanter Screw Bone Titanium [id number] - [id number] Implanted:Qty: 1 on 10/08/2021 by Miguel Flores MD at [facility] Right: Femur [employer] /Ortho [id number] 04/21/2030 [id number] / / [id number] [employer] Device Clsr Perclose Prostyle Sut-Mediatd Closure-Repair Sys 23617-92 - S0 - [id number] Implanted:Qty: 1 on 07/17/2022 by Pedro Luis Mccormack MD at [facility] [employer] 04/07/2024 [id number] / 0 / [id number] [employer] Device Clsr Perclose Prostyle Sut-Mediatd Closure-Repair Sys 52693-96 - S0 - [id number] Implanted:Qty: 1 on 07/17/2022 by Pedro Luis Mccormack MD at [facility] [employer] 04/07/2024 [id number] / 0 / [id number] Procedures Procedure Name Priority Date/Time Associated Diagnosis Comments HEPATITIS PANEL, ACUTE Routine 06/12/2021 4:[address] ABDOMEN PELVIS W CONTRAST Schedule Routine, Read Routine (OP Routine) 06/13/2020 12:13 PM LIMEHOUSE WORKER Cholecystitis from Last 3 Months or Most Recently Relevant to Health Maintenance Results * Hepatitis panel, acute (06/12/2021 4:34 PM [employer]IMEHOU[employer] WORKER) Hep A IgM Nonreactive Nonreactive [facility] Comment: Interpretive Data: If Hep A IgM Ab is reported as Equivocal, a new sample should be drawn in two weeks for testing. Current interpretive data was last revised on 19. Hep B core IgM Nonreactive Nonreactive [facility] Comment: Interpretive Data If HepB Core IgM Ab is reported as Equivocal, a new sample should be drawn in two weeks for testing. Current interpretive data was last revised on 19. Hep C Ab Nonreactive Nonreactive [facility] Comment:Antibodies to HCV no t detected. Does NOT exclude the possibility of recent exposure to HCV. 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 ??The chest was not scanned. Electronically signed by: Stepan Scott M.D. 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 Interval decrease in size of an abscess extending from the gallbladder fossa the anterior abdominal wall. 2. Extensive colonic diverticulosis. Mild thickening of the right hemicolon may be related to chronic diverticulitis. 3. Small pleural and pericardial effusions. Electronically signed by: Stepan Scott M.D. 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 COMPARISON: 03/26/2020 FINDINGS: ?? The lung bases there are small pleural effusions and a small pericardial effusion with mild cardiomegaly. Subsegmental atelectasis is also present. Again seen is a rim-enhancing fluid collection extending from the gallbladder fossa into the anterior abdominal wall that appears to communicate with the overlying skin. In largest transaxial dimensions it measures 5.9 x 2.3 cm. The adjacent gallbladder is decompressed. No focal liver lesion is present site from a benign-appearing cyst in segment 4A. No biliary duct dilatation. The portal and hepatic veins appear widely patent. No focal pancreatic lesion. Unchanged thickening of both adrenal glands. The right adrenal gland also contains a 1.6 cm nodule that is probably an adenoma. Splenic size is normal. There is no hydronephrosis. A large cyst is present within the left renal hilum. The abdominal aorta is atherosclerotic but nonaneurysmal. No abdominal or pelvic lymphadenopathy. The prostate gland is normal in size. Bladder is decompressed. Small volume free fluid noted in the pelvis. Extensive colonic diverticulosis is present. No definite diverticulitis. The appendix is normal. No intestinal obstruction. Mild apparent wall thickening in the ascending colon may be related to chronic diverticular disease. No free intraperitoneal gas. Bone windows demonstrate no suspicious osseous lesion or fracture. Procedure Note Stepan Scott MD - 06/13/2020 EXAMINATION: Computed tomography of the chest, abdomen and pelvis with intravenous contrast HISTORY: Perforated cholecystitis follow-up TECHNIQUE: Transaxial computed tomographic images of the chest, abdomen and pelvis were obtained with intravenous contrast according to the standard protocol after the uneventful administration of 100 mL Opti-Ray 350 intravenous contrast. COMPARISON: 03/26/2020 FINDINGS: The lung bases there are small pleural effusions and a small pericardial effusion with mild cardiomegaly. Subsegmental atelectasis is also present. Again seen is a rim-enhancing fluid collection extending from the gallbladder fossa into the anterior abdominal wall that appears to communicate with the overlying skin. In largest transaxial dimensions it measures 5.9 x 2.3 cm. The adjacent gallbladder is decompressed. No focal liver lesion is present site from a benign-appearing cyst in segment 4A. No biliary duct dilatation. The portal and hepatic veins appear widely patent. No focal pancreatic lesion. Unchanged thickening of both adrenal glands. The right adrenal gland also contains a 1.6 cm nodule that is probably an adenoma. Splenic size is normal. There is no hydronephrosis. A large cyst is present within the left renal hilum. The abdominal aorta is atherosclerotic but nonaneurysmal. No abdominal or pelvic lymphadenopathy. The prostate gland is normal in size. Bladder is decompressed. Small volume free fluid noted in the pelvis. Extensive colonic diverticulosis is present. No definite diverticulitis. The appendix is normal. No intestinal obstruction. Mild apparent wall thickening in the ascending colon may be related to chronic diverticular disease. No free intraperitoneal gas. Bone windows demonstrate no suspicious osseous lesion or fracture. IMPRESSION: 1. Interval decrease in size of an abscess extending from the gallbladder fossa the anterior abdominal wall. 2. Extensive colonic diverticulosis. Mild thickening of the right hemicolon may be related to chronic diverticulitis. 3. Small pleural and pericardial effusions. Electronically signed by: Stepan Scott M.D. Eugene Gomez MD IMG CT PROCEDURES Edited Result - Final from Last 3 Months or Most Recently Relevant to Health Maintenance Additional Health Concerns Infection Onset Date Last Indicated MDR gram neg/ESBL Comment:06/16/2021 IP Review - Pt with scrotal abscess, but is not actively draining (last documented draining on 06/14). Pt remains intubated so requires trach aspirate for isolation discontinuation. Provider notified. 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 ADVANCE DIRECTIVE 07/29/2022 11:00 PM Artemio r of Salesperson Sheet Music-Medical ADVANCE DIRECTIVE 07/10/2021 11:03 AM POWER OF PSYCHOLOGIST EXPERIMENTAL-MEDICAL ADVANCE DIRECTIVE 06/21/2021 6:25 PM POA ADVANCE DIRECTIVE 06/16/2021 4:39 PM * Full Code (Latest Code Status on File) Date Activated Date Inactivated Comments 07/29/2022 10:23 PM 08/03/2022 2:55 PM * Full Code Date Activated Date Inactivated Comments 07/17/2022 11:41 AM 07/17/2022 5:59 PM * Full Code Date Activated Date Inactivated Comments 10/08/2021 12:50 PM 11/02/2021 5:42 AM * Full Code Date Activated Date Inactivated Comments 10/05/2021 12:21 AM 10/08/2021 12:50 PM * Full Code Date Activated Date Inactivated Comments 10/04/2021 3:23 PM 10/05/2021 12:21 AM Healthcare Agents on File Name Relationship Healthcare Agent Relationsde p Communication Raine Sale Med PO Health Care Agent Care Teams Behavioral Psychologist Relationship Specialty Start Date End Date Carey Dorsey NP [address] [facility] [place] [address] PCP - General Family Medicine 05/15/23 Jean-Claude Crawford MD [id number] [facility] [address] [place] [address] Family Medicine 04/12/20 Jessie Delvalle MD [id number] [facility] [address] [place] [address] Orthopedic Surgery 07/07/21 Sandip Barone MD [address] [place] [id number] Consulting Physician Neurosurgery 07/07/21
--- OUTSIDE RECORDS SUMMARY | 2024-04-08 10:31 | XMS_ITS ---
Author Organization [facility] Address Unknown Allergies, Adverse Reactions, Alerts Substance Reaction Status Noted Date Resolved Date Penicillins active 11/01/2021 Problems Problem Status Start Date End Date DISPLACED INTERTROCHANTERIC FRACTURE OF RIGHT FEMUR, SUBSEQUENT ENCOUNTER FOR CLOSED FRACTURE WITH ROUTINE HEALING (Primary) (S72.141D - ICD-10-CM) ACTIVE 11/01/2021 CHRONIC OBSTRUCTIVE PULMONAR Y DISEASE, UNSPECIFIED (J44.9 - ICD-10-CM) ACTIVE 11/01/2021 SEPSIS, UNSPECIFIED ORGANISM (A41.9 - ICD-10-CM) ACTIV E 11/01/2021 CHRONIC SYSTOLIC (CONGESTIVE ) HEART FAILURE (I50.22 - ICD-10-CM) ACTIVE 11/01/2021 ORTHOSTATIC HYPOTENSION (I95.1 - ICD-10-CM) ACTIVE 11/01/2021 PERSONAL HISTORY OF TRAUMATI C BRAIN INJURY (Z87.820 - ICD-10-CM) ACTIVE 11/01/2021 INSOMNIA, UNSPECIFIED (G47.00 - ICD-10-CM) ACTIVE 11/01/2021 PERSONAL HISTORY OF COVID-19 (Z86.16 - ICD-10-CM) ACTI VE 11/01/2021 UNSPECIFIED SYSTOLIC (CONGES TIVE) HEART FAILURE (I50.20 - ICD-10-CM) ACTIVE 08/07/2019 HISTOPLASMOSIS, UNSPECIFIED (B39.9 - ICD-10-CM) ACTIVE 08/07/2019 UNSTEADINESS ON FEET (R26.81 - ICD-10-CM) ACTIVE 11/01/2021 OTHER ABNORMALITIES OF GAIT AND MOBILITY (R26.89 - ICD-10-CM) ACTIVE 11/01/2021 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-CM) ACTIVE 11/01/2021 OTHER SPEECH AND LANGUAGE DE FICITS FOLLOWING UNSPECIFIED CEREBROVASCULAR DISEASE (I69.928 - ICD-10-CM) ACTIVE 11/01/2021 MUSCLE WEAKNESS (GENERALIZED) (M62.81 - ICD-10-CM) ACT REID 11/10/2019 DYSPHAGIA FOLLOWING UNSPECIF IED CEREBROVASCULAR DISEASE (I69.991 - ICD-10-CM) ACTIVE 11/01/2021 DYSPHAGIA, PHARYNGEAL PHASE (R13.13 - ICD-10-CM) ACTIV E 12/02/2019 OTHER PULMONARY EMBOLISM WIT HOUT ACUTE COR PULMONALE (I26.99 - ICD-10-CM) ACTIVE 12/01/2019 PERITONEAL ABSCESS (K65.1 - ICD-10-CM) ACTIVE ABSCESS OF LIVER (K75.0 - ICD-10-CM) ACTIVE 11/06 DYSPHAGIA, OROPHARYNGEAL PHASE (R13.12 - ICD-10-CM) AC TIVE 11/18/2019 ACUTE CHOLECYSTITIS (K81.0 - ICD-10-CM) ACTIVE 0 11/09/2019 ACUTE RESPIRATORY FAILURE, U NSPECIFIED WHETHER WITH HYPOXIA OR HYPERCAPNIA (J96.00 - ICD-10-CM) ACTIVE 11/09/2019 ESSENTIAL (PRIMARY) HYPERTENSION (I10 - ICD-10-CM) ACT REID 08/16/2019 DISORIENTATION, UNSPECIFIED (R41.0 - ICD-10-CM) ACTIVE 08/11/2019 FRONTAL LOBE AND EXECUTIVE F UNCTION DEFICIT (R41.844 - ICD-10-CM) ACTIVE 08/11/2019 OTHER SYMPTOMS AND SIGNS INV OLVING COGNITIVE FUNCTIONS AND AWARENESS (R41.89 - ICD-10-CM) ACTIVE 08/11/2019 MUSCLE WASTING AND ATROPHY, NOT ELSEWHERE CLASSIFIED, UNSPECIFIED SITE (M62.50 - ICD-10-CM) ACTIVE 08/09/2019 DIFFICULTY IN WALKING, NOT E LSEWHERE CLASSIFIED (R26.2 - ICD-10-CM) ACTIVE 08/08/2019 BENIGN PROSTATIC HYPERPLASIA WITHOUT LOWER URINARY TRACT SYMPTOMS (N40.0 - ICD-10-CM) ACTIVE 08/07/2019 PERSONAL HISTORY OF TRANSIEN T ISCHEMIC ATTACK (TIA), 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 - ICD-10-CM) ACTIVE 08/07/2019 ALCOHOL ABUSE, UNCOMPLICATED (F10.10 - ICD-10-CM) ACTI VE 08/07/2019 VITAMIN D DEFICIENCY, UNSPECIFIED (E55.9 - ICD-10-CM) ACTIVE 08/07/2019 GASTRO-ESOPHAGEAL REFLUX DIS EASE WITHOUT ESOPHAGITIS (K21.9 - ICD-10-CM) ACTIVE 08/07/2019 HYPERLIPIDEMIA, UNSPECIFIED (E78.5 - ICD-10-CM) ACTIVE 08/07/2019 LEGAL BLINDNESS, DEFINED IN [place] (H54.8 - ICD-10-CM) ACTIVE 08/07/2019 NEED FOR ASSISTANCE WITH PERSONAL CARE (Z74.1 - ICD-10 -CM) ACTIVE 11/18/2019 CHOLECYSTITIS, UNSPECIFIED (K81.9 - ICD-10-CM) ACTIVE 08/07/2019 Results * REFUSAL (FIRST ATTEMPT) Performed by: [place] [address] [address] [facility] [address] Component Value Range Date REFUSAL (FIRST ATTEMPT) * 04/2021 09:13 am EDT NOTIFIED NURSE(NAME): MITCHEL 2021 09:13 am EDT LAB WILL REDRAW (DATE): NURSE WILL RESCHEDULE 11/06/2021 09:13 am EDT TESTS ORDERED: CMP,LIPIDS,MG,A1C,CB C,BNP,FILIC ,B12,IRON.PRRE 11/06/2021 09:13 am EDT * Individual Tests: SARS-CoV-2 (COVID-19) Performed by: [facility] Component Value Range Date SARS-CoV-2 (COVID-19) NOT DETECTED NOT DETECTED 2019 10:55 pm EDT SARS-CoV-2 (COVID-19) NOT DETECTED NOT DETECTED 2019 10:55 pm EDT SARS-CoV-2 (COVID-19) NOT DETECTED NOT DETECTED 2019 10:55 pm EDT SARS-CoV-2 (COVID-19) NOT DETECTED NOT DETECTED 2019 10:55 pm EDT * Individual Tests: SARS-CoV-2 (COVID-19) Performed by: [facility] Component Value Range Date SARS-CoV-2 (COVID-19) NOT DETECTED NOT DETECTED 2019 12:10 pm EDT SARS-CoV-2 (COVID-19) NOT DETECTED NOT DETECTED 2019 12:10 pm EDT SARS-CoV-2 (COVID-19) NOT DETECTED NOT DETECTED 2019 12:10 pm EDT SARS-CoV-2 (COVID-19) NOT DETECTED NOT DETECTED 2019 12:10 pm EDT * Basic Metabolic Panel, AMA Performed by: [facility] Component Value Range Date GFR EST, 136 ML/MIN/1.73m2 >=60 12/08/2019 12:31 pm EDT GFR EST, 136 ML/MIN/1.73m2 >=60 12/08/2019 12:31 pm EDT GFR EST, 136 ML/MIN/1.73m2 >=60 12/08/2019 12:31 pm EDT GFR EST, 136 ML/MIN/1.73m2 >=60 12/08/2019 12:31 pm EDT GFR EST, NON 112 ML/MIN/1.73m2 >=60 12/08/2019 12:31 pm EDT GFR EST, NON 112 ML/MIN/1.73m2 >=60 12/08/2019 12:31 pm EDT GFR EST, NON 112 ML/MIN/1.73m2 >=60 12/08/2019 12:31 pm EDT GFR EST, NON 112 ML/MIN/1.73m2 >=60 12/08/2019 12:31 pm EDT * Complete Blood Count/Auto Diff Performed by: [facility] Component Value Range Date DIFFERENTIAL TYPE AUTO 12/08/2019 12:31 pm EDT DIFFERENTIAL TYPE AUTO 12/08/2019 12:31 pm EDT DIFFERENTIAL TYPE AUTO 12/08/2019 12:31 pm EDT DIFFERENTIAL TYPE AUTO 12/08/2019 12:31 pm EDT * Basic Metabolic Panel, AMA Performed by: [facility] Component Value Range Date CALCIUM 8.2 MG/DL 8.6-10.3 12/08/2019 12:3 1 pm EDT CALCIUM 8.2 MG/DL 8.6-10.3 12/08/2019 12:3 1 pm EDT CALCIUM 8.2 MG/DL 8.6-10.3 12/08/2019 12:3 1 pm EDT CALCIUM 8.2 MG/DL 8.6-10.3 12/08/2019 12:3 1 pm EDT ANION GAP 11 MMOL/L - 12/08/2019 12:3 1 pm EDT ANION GAP 11 MMOL/L - 12/08/2019 12:3 1 pm EDT ANION GAP 11 MMOL/L - 12/08/2019 12:3 1 pm EDT ANION GAP 11 MMOL/L - 17 12/08/2019 12:3 1 pm EDT OSMOLALITY-CALCULATED 278 MOSM/KG 270 - 310 2019 12:31 pm EDT OSMOLALITY-CALCULATED 278 MOSM/KG 270 - 310 2019 12:31 pm EDT OSMOLALITY-CALCULATED 278 MOSM/KG 270 - 310 2019 12:31 pm EDT OSMOLALITY-CALCULATED 278 MOSM/KG 270 - 310 2019 12:31 pm EDT CREATININE 0.7 MG/DL 0.7-1.3 12/08/2019 12:3 1 pm EDT CREATININE 0.7 MG/DL 0.7-1.3 12/08/2019 12:3 1 pm EDT CREATININE 0.7 MG/DL 0.7-1.3 12/08/2019 12:3 1 pm EDT CREATININE 0.7 MG/DL 0.7-1.3 12/08/2019 12:3 1 pm EDT GLUCOSE 122 MG/DL 70-105 12/08/2019 12:3 1 pm EDT GLUCOSE 122 MG/DL 70-105 12/08/2019 12:3 1 pm EDT GLUCOSE 122 MG/DL 70-105 12/08/2019 12:3 1 pm EDT GLUCOSE 122 MG/DL 70-105 12/08/2019 12:3 1 pm EDT * Complete Blood Count/Auto Diff Performed by: [facility] Component Value Range Date HEMOGLOBIN 10.2 G/DL 14.0 - 18.0 12/08/2019 12:3 1 pm EDT HEMOGLOBIN 10.2 G/DL 14.0 - 18.0 12/08/2019 12:3 1 pm EDT HEMOGLOBIN 10.2 G/DL 14.0 - 18.0 12/08/2019 12:3 1 pm EDT HEMOGLOBIN 10.2 G/DL 14.0 - 18.0 12/08/2019 12:3 1 pm EDT * Basic Metabolic Panel, AMA Performed by: [facility] Component Value Range Date POTASSIUM 3.9 MMOL/L 3.5-5.1 12/08/2019 12:3 1 pm EDT POTASSIUM 3.9 MMOL/L 3.5-5.1 12/08/2019 12:3 1 pm EDT POTASSIUM 3.9 MMOL/L 3.5-5.1 12/08/2019 12:3 1 pm EDT POTASSIUM 3.9 MMOL/L 3.5-5.1 12/08/2019 12:3 1 pm EDT SODIUM 143 MMOL/L 136-145 12/08/2019 12:3 1 pm EDT SODIUM 143 MMOL/L 136-145 12/08/2019 12:3 1 pm EDT SODIUM 143 MMOL/L 136-145 12/08/2019 12:3 1 pm EDT SODIUM 143 MMOL/L 136-145 12/08/2019 12:3 1 pm EDT BUN 14 MG/DL 10-3012/08/2019 12:3 1 pm EDT BUN 14 MG/DL 10-3012/08/2019 12:3 1 pm EDT BUN 14 MG/DL 10-3012/08/2019 12:3 1 pm EDT BUN 14 MG/DL 10-3012/08/2019 12:3 1 pm EDT CARBON DIOXIDE 28.9 MMOL/L 12/08/2019 12 :31 pm EDT CARBON DIOXIDE 28.9 MMOL/L 12/08/2019 12 :31 pm EDT CARBON DIOXIDE 28.9 MMOL/L 12/08/2019 12 :31 pm EDT CARBON DIOXIDE 28.9 MMOL/L 12/08/2019 12 :31 pm EDT CHLORIDE 107 MMOL/L 98-107 12/08/2019 12:3 1 pm EDT CHLORIDE 107 MMOL/L 98-107 12/08/2019 12:3 1 pm EDT CHLORIDE 107 MMOL/L 98-107 12/08/2019 12:3 1 pm EDT CHLORIDE 107 MMOL/L 98-107 12/08/2019 12:3 1 pm EDT * Complete Blood Count/Auto Diff Performed by: [facility] Component Value Range Date RED BLOOD CELLS (RBC) 3.11 M/UL 4.5-6.3 2019 12:31 pm EDT RED BLOOD CELLS (RBC) 3.11 M/UL 4.5-6.3 2019 12:31 pm EDT RED BLOOD CELLS (RBC) 3.11 M/UL 4.5-6.3 2019 12:31 pm EDT RED BLOOD CELLS (RBC) 3.11 M/UL 4.5-6.3 2019 12:31 pm EDT MCHC 33.7 G/DL 32-36 12/08/2019 12:3 1 pm EDT MCHC 33.7 G/DL 32-36 12/08/2019 12:3 1 pm EDT MCHC 33.7 G/DL 32-36 12/08/2019 12:3 1 pm EDT MCHC 33.7 G/DL 32-36 12/08/2019 12:3 1 pm EDT MCH 32.8 PG 27-32 12/08/2019 12:3 1 pm EDT MCH 32.8 PG 27-32 12/08/2019 12:3 1 pm EDT MCH 32.8 PG 27-32 12/08/2019 12:3 1 pm EDT MCH 32.8 PG 27-32 12/08/2019 12:3 1 pm EDT HEMATOCRIT 30.4 % 41.0-51.0 12/08/2019 12:3 1 pm EDT HEMATOCRIT 30.4 % 41.0-51.0 12/08/2019 12:3 1 pm EDT HEMATOCRIT 30.4 % 41.0-51.0 12/08/2019 12:3 1 pm EDT HEMATOCRIT 30.4 % 41.0-51.0 12/08/2019 12:3 1 pm EDT WHITE BLOOD CELLS (WBC) 5.5 K/UL 4.0-10.0 0904/2019 12:31 pm EDT WHITE BLOOD CELLS (WBC) 5.5 K/UL 4.0-10.0 04/2019 12:31 pm EDT WHITE BLOOD CELLS (WBC) 5.5 K/UL 4.0-10.0 04/2019 12:31 pm EDT WHITE BLOOD CELLS (WBC) 5.5 K/UL 4.0-10.0 04/2019 12:31 pm EDT MCV 97.6 FL 80-94 12/08/2019 12:3 1 pm EDT MCV 97.6 FL 80-94 12/08/2019 12:3 1 pm EDT MCV 97.6 FL 80-94 12/08/2019 12:3 1 pm EDT MCV 97.6 FL 80-94 12/08/2019 12:3 1 pm EDT PLATELET COUNT 208 K/UL 140-440 12/08/2019 12 :31 pm EDT PLATELET COUNT 208 K/UL 140-440 12/08/2019 12 :31 pm EDT PLATELET COUNT 208 K/UL 140-440 12/08/2019 12 :31 pm EDT PLATELET COUNT 208 K/UL 140-440 12/08/2019 12 :31 pm EDT RDW 19.5 % 12.0-16.0 12/08/2019 12:3 1 pm EDT RDW 19.5 % 12.0-16.0 12/08/2019 12:3 1 pm EDT RDW 19.5 % 12.0-16.0 12/08/2019 12:3 1 pm EDT RDW 19.5 % 12.0-16.0 12/08/2019 12:3 1 pm EDT NEUTROPHILS, % 56.7 % 36.0-66.0 12/08/2019 12 :31 pm EDT NEUTROPHILS, % 56.7 % 36.0-66.0 12/08/2019 12 :31 pm EDT NEUTROPHILS, % 56.7 % 36.0-66.0 12/08/2019 12 :31 pm EDT NEUTROPHILS, % 56.7 % 36.0-66.0 12/08/2019 12 :31 pm EDT BASOPHILS, ABS 0.00 K/UL 0.0-0.3 12/08/2019 12 :31 pm EDT BASOPHILS, ABS 0.00 K/UL 0.0-0.3 12/08/2019 12 :31 pm EDT BASOPHILS, ABS 0.00 K/UL 0.0-0.3 12/08/2019 12 :31 pm EDT BASOPHILS, ABS 0.00 K/UL 0.0-0.3 12/08/2019 12 :31 pm EDT LYMPHOCYTES, ABS 1.80 K/UL 0.6-3.4 12/08/2019 12:31 pm EDT LYMPHOCYTES, ABS 1.80 K/UL 0.6-3.4 12/08/2019 12:31 pm EDT LYMPHOCYTES, ABS 1.80 K/UL 0.6-3.4 12/08/2019 12:31 pm EDT LYMPHOCYTES, ABS 1.80 K/UL 0.6-3.4 12/08/2019 12:31 pm EDT LYMPHOCYTES, % 32.7 % 24.0-44.0 12/08/2019 12 :31 pm EDT LYMPHOCYTES, % 32.7 % 24.0-44.0 12/08/2019 12 :31 pm EDT LYMPHOCYTES, % 32.7 % 24.0-44.0 12/08/2019 12 :31 pm EDT LYMPHOCYTES, % 32.7 % 24.0-44.0 12/08/2019 12 :31 pm EDT BASOPHILS, % 0.8 % 0.0-2.5 12/08/2019 12:3 1 pm EDT BASOPHILS, % 0.8 % 0.0-2.5 12/08/2019 12:3 1 pm EDT BASOPHILS, % 0.8 % 0.0-2.5 12/08/2019 12:3 1 pm EDT BASOPHILS, % 0.8 % 0.0-2.5 12/08/2019 12:3 1 pm EDT EOSINOPHILS, % 2.4 % 0.0-4.0 12/08/2019 12 :31 pm EDT EOSINOPHILS, % 2.4 % 0.0-4.0 12/08/2019 12 :31 pm EDT EOSINOPHILS, % 2.4 % 0.0-4.0 12/08/2019 12 :31 pm EDT EOSINOPHILS, % 2.4 % 0.0-4.0 12/08/2019 12 :31 pm EDT MONOCYTES, % 7.4 % 0.0-8.0 12/08/2019 12:3 1 pm EDT MONOCYTES, % 7.4 % 0.0-8.0 12/08/2019 12:3 1 pm EDT MONOCYTES, % 7.4 % 0.0-8.0 12/08/2019 12:3 1 pm EDT MONOCYTES, % 7.4 % 0.0-8.0 12/08/2019 12:3 1 pm EDT NEUTROPHILS, ABS 3.10 K/UL 2.0-6.9 12/08/2019 12:31 pm EDT NEUTROPHILS, ABS 3.10 K/UL 2.0-6.9 12/08/2019 12:31 pm EDT NEUTROPHILS, ABS 3.10 K/UL 2.0-6.9 12/08/2019 12:31 pm EDT NEUTROPHILS, ABS 3.10 K/UL 2.0-6.9 12/08/2019 12:31 pm EDT EOSINOPHILS, ABS 0.10 K/UL 0.0-0.5 12/08/2019 12:31 pm EDT EOSINOPHILS, ABS 0.10 K/UL 0.0-0.5 12/08/2019 12:31 pm EDT EOSINOPHILS, ABS 0.10 K/UL 0.0-0.5 12/08/2019 12:31 pm EDT EOSINOPHILS, ABS 0.10 K/UL 0.0-0.5 12/08/2019 12:31 pm EDT MONOCYTES, ABS 0.40 K/UL 0.0-0.9 12/08/2019 12 :31 pm EDT MONOCYTES, ABS 0.40 K/UL 0.0-0.9 12/08/2019 12 :31 pm EDT MONOCYTES, ABS 0.40 K/UL 0.0-0.9 12/08/2019 12 :31 pm EDT MONOCYTES, ABS 0.40 K/UL 0.0-0.9 12/08/2019 12 :31 pm EDT * Basic Metabolic Panel, AMA Performed by: [facility] Component Value Range Date BUN/CREATININE RATIO 20 6 - 20 020 12: pm EDT BUN/CREATININE RATIO 20 6 - 20 020 12:31 pm EDT BUN/CREATININE RATIO 20 6 - 20 020 12:31 pm EDT BUN/CREATININE RATIO 20 6 - 20 020 12:31 pm EDT * Comp Metabolic Panel, AMA Performed by: [facility] Component Value Range Date BUN/CREATININE RATIO 20 6 - 20 020 12:28 pm EDT BUN/CREATININE RATIO 20 6 - 20 020 12: pm EDT BUN/CREATININE RATIO 20 6 - 20 020 12: pm EDT BUN/CREATININE RATIO 20 6 - 20 020 12:28 pm EDT ALBUMIN/GLOBULIN RATIO 1.1 1 - 2.8 12/06 12: pm EDT ALBUMIN/GLOBULIN RATIO 1.1 1 - 2.8 12/06 12:28 pm EDT ALBUMIN/GLOBULIN RATIO 1.1 1 - 2.8 12/06 12:28 pm EDT ALBUMIN/GLOBULIN RATIO 1.1 1 - 2.8 12/06 12:28 pm EDT GLOBULIN 2.3 G/DL 1.5 - 3.8 12/07/2019 12: 8 pm EDT GLOBULIN 2.3 G/DL 1.5 - 3.8 12/07/2019 12:2 8 pm EDT GLOBULIN 2.3 G/DL 1.5 - 3.8 12/07/2019 12:2 8 pm EDT GLOBULIN 2.3 G/DL 1.5 - 3.8 12/07/2019 12:2 8 pm EDT * Complete Blood Count/Auto Diff Performed by: [facility] Component Value Range Date MONOCYTES, ABS 0.40 K/UL 0.0-0.9 12/07/2019 12 :28 pm EDT MONOCYTES, ABS 0.40 K/UL 0.0-0.9 12/07/2019 12 :28 pm EDT MONOCYTES, ABS 0.40 K/UL 0.0-0.9 12/07/2019 12 :28 pm EDT MONOCYTES, ABS 0.40 K/UL 0.0-0.9 12/07/2019 12 :28 pm EDT NEUTROPHILS, ABS 3.80 K/UL 2.0-6.9 12/07/2019 12:28 pm EDT NEUTROPHILS, ABS 3.80 K/UL 2.0-6.9 12/07/2019 12:28 pm EDT NEUTROPHILS, ABS 3.80 K/UL 2.0-6.9 12/07/2019 12:28 pm EDT NEUTROPHILS, ABS 3.80 K/UL 2.0-6.9 12/07/2019 12:28 pm EDT EOSINOPHILS, ABS 0.10 K/UL 0.0-0.5 12/07/2019 12:28 pm EDT EOSINOPHILS, ABS 0.10 K/UL 0.0-0.5 12/07/2019 12:28 pm EDT EOSINOPHILS, ABS 0.10 K/UL 0.0-0.5 12/07/2019 12:28 pm EDT EOSINOPHILS, ABS 0.10 K/UL 0.0-0.5 12/07/2019 12:28 pm EDT EOSINOPHILS, % 1.8 % 0.0-4.0 12/07/2019 12 :28 pm EDT EOSINOPHILS, % 1.8 % 0.0-4.0 12/07/2019 12 :28 pm EDT EOSINOPHILS, % 1.8 % 0.0-4.0 12/07/2019 12 :28 pm EDT EOSINOPHILS, % 1.8 % 0.0-4.0 12/07/2019 12 :28 pm EDT MONOCYTES, % 7.2 % 0.0-8.0 12/07/2019 12:2 8 pm EDT MONOCYTES, % 7.2 % 0.0-8.0 12/07/2019 12:2 8 pm EDT MONOCYTES, % 7.2 % 0.0-8.0 12/07/2019 12:2 8 pm EDT MONOCYTES, % 7.2 % 0.0-8.0 12/07/2019 12:2 8 pm EDT LYMPHOCYTES, % 29.0 % 24.0-44.0 12/07/2019 12 :28 pm EDT LYMPHOCYTES, % 29.0 % 24.0-44.0 12/07/2019 12 :28 pm EDT LYMPHOCYTES, % 29.0 % 24.0-44.0 12/07/2019 12 :28 pm EDT LYMPHOCYTES, % 29.0 % 24.0-44.0 12/07/2019 12 :28 pm EDT BASOPHILS, % 0.9 % 0.0-2.5 12/07/2019 12:2 8 pm EDT BASOPHILS, % 0.9 % 0.0-2.5 12/07/2019 12:2 8 pm EDT BASOPHILS, % 0.9 % 0.0-2.5 12/07/2019 12:2 8 pm EDT BASOPHILS, % 0.9 % 0.0-2.5 12/07/2019 12:2 8 pm EDT BASOPHILS, ABS 0.10 K/UL 0.0-0.3 12/07/2019 12 :28 pm EDT BASOPHILS, ABS 0.10 K/UL 0.0-0.3 12/07/2019 12 :28 pm EDT BASOPHILS, ABS 0.10 K/UL 0.0-0.3 12/07/2019 12 :28 pm EDT BASOPHILS, ABS 0.10 K/UL 0.0-0.3 12/07/2019 12 :28 pm EDT LYMPHOCYTES, ABS 1.80 K/UL 0.6-3.4 12/07/2019 12:28 pm EDT LYMPHOCYTES, ABS 1.80 K/UL 0.6-3.4 12/07/2019 12:28 pm EDT LYMPHOCYTES, ABS 1.80 K/UL 0.6-3.4 12/07/2019 12:28 pm EDT LYMPHOCYTES, ABS 1.80 K/UL 0.6-3.4 12/07/2019 12:28 pm EDT RDW 19.2 % 12.0-16.0 12/07/2019 12:2 8 pm EDT RDW 19.2 % 12.0-16.0 12/07/2019 12:2 8 pm EDT RDW 19.2 % 12.0-16.0 12/07/2019 12:2 8 pm EDT RDW 19.2 % 12.0-16.0 12/07/2019 12:2 8 pm EDT MCH 32.8 PG 27-32 12/07/2019 12:2 8 pm EDT MCH 32.8 PG 27-32 12/07/2019 12:2 8 pm EDT MCH 32.8 PG 27-32 12/07/2019 12:2 8 pm EDT MCH 32.8 PG 27-32 12/07/2019 12:2 8 pm EDT WHITE BLOOD CELLS (WBC) 6.2 K/UL 4.0-10.0 11/08 12:28 pm EDT WHITE BLOOD CELLS (WBC) 6.2 K/UL 4.0-10.0 11/08 12:28 pm EDT WHITE BLOOD CELLS (WBC) 6.2 K/UL 4.0-10.0 11/08 12:28 pm EDT WHITE BLOOD CELLS (WBC) 6.2 K/UL 4.0-10.0 11/08 12:28 pm EDT * Comp Metabolic Panel, AMA Performed by: [facility] Component Value Range Date AST (GOT) 20 U/L 12/07/2019 12:2 8 pm EDT AST (GOT) 20 U/L 12/07/2019 12:2 8 pm EDT AST (GOT) 20 U/L 12/07/2019 12:2 8 pm EDT AST (GOT) 20 U/L 12/07/2019 12:2 8 pm EDT PROTEIN, TOTAL 4.8 G/DL 6.4-8.9 12/07/2019 12 :28 pm EDT PROTEIN, TOTAL 4.8 G/DL 6.4-8.9 12/07/2019 12 :28 pm EDT PROTEIN, TOTAL 4.8 G/DL 6.4-8.9 12/07/2019 12 :28 pm EDT PROTEIN, TOTAL 4.8 G/DL 6.4-8.9 12/07/2019 12 :28 pm EDT ALKALINE PHOSPHATASE 114 U/L 34-104 020 12:28 pm EDT ALKALINE PHOSPHATASE 114 U/L 34-104 020 12:28 pm EDT ALKALINE PHOSPHATASE 114 U/L 34-104 12:28 pm EDT ALKALINE PHOSPHATASE 114 U/L 34-104 12:28 pm EDT * Complete Blood Count/Auto Diff Performed by: [facility] Component Value Range Date MCV 97.4 FL 80-94 12/07/2019 12:2 8 pm EDT MCV 97.4 FL 80-94 12/07/2019 12:2 8 pm EDT MCV 97.4 FL 80-94 12/07/2019 12:2 8 pm EDT MCV 97.4 FL 80-94 12/07/2019 12:2 8 pm EDT HEMATOCRIT 32.1 % 41.0-51.0 12/07/2019 12:2 8 pm EDT HEMATOCRIT 32.1 % 41.0-51.0 12/07/2019 12:2 8 pm EDT HEMATOCRIT 32.1 % 41.0-51.0 12/07/2019 12:2 8 pm EDT HEMATOCRIT 32.1 % 41.0-51.0 12/07/2019 12:2 8 pm EDT MCHC 33.7 G/DL 32-36 12/07/2019 12:2 8 pm EDT MCHC 33.7 G/DL 32-36 12/07/2019 12:2 8 pm EDT MCHC 33.7 G/DL 32-36 12/07/2019 12:2 8 pm EDT MCHC 33.7 G/DL 32-36 12/07/2019 12:2 8 pm EDT * Comp Metabolic Panel, AMA Performed by: [facility] Component Value Range Date SODIUM 142 MMOL/L 136-145 12/07/2019 12:2 8 pm EDT SODIUM 142 MMOL/L 136-145 12/07/2019 12:2 8 pm EDT SODIUM 142 MMOL/L 136-145 12/07/2019 12:2 8 pm EDT SODIUM 142 MMOL/L 136-145 12/07/2019 12:2 8 pm EDT CARBON DIOXIDE 28.4 MMOL/L 12/07/2019 12 :28 pm EDT CARBON DIOXIDE 28.4 MMOL/L 12/07/2019 12 :28 pm EDT CARBON DIOXIDE 28.4 MMOL/L 12/07/2019 12 :28 pm EDT CARBON DIOXIDE 28.4 MMOL/L 12/07/2019 12 :28 pm EDT * Complete Blood Count/Auto Diff Performed by: [employer] Value Range Date RED BLOOD CELLS (RBC) 3.29 M/UL 4.5-6.3 2019 12:28 pm EDT RED BLOOD CELLS (RBC) 3.29 M/UL 4.5-6.3 2019 12:28 pm EDT RED BLOOD CELLS (RBC) 3.29 M/UL 4.5-6.3 2019 12:28 pm EDT RED BLOOD CELLS (RBC) 3.29 M/UL 4.5-6.3 2019 12:28 pm EDT * Comp Metabolic Panel, AMA Performed by: [employer] Value Range Date CHLORIDE 108 MMOL/L 98-107 12/07/2019 12:2 8 pm EDT CHLORIDE 108 MMOL/L 98-107 12/07/2019 12:2 8 pm EDT CHLORIDE 108 MMOL/L 98-107 12/07/2019 12:2 8 pm EDT CHLORIDE 108 MMOL/L 98-107 12/07/2019 12:2 8 pm EDT BUN 12 MG/DL 10-3012/07/2019 12:2 8 pm EDT BUN 12 MG/DL 10-3012/07/2019 12:2 8 pm EDT BUN 12 MG/DL 10-3012/07/2019 12:2 8 pm EDT BUN 12 MG/DL 10-3012/07/2019 12:2 8 pm EDT POTASSIUM 3.9 MMOL/L 3.5-5.1 12/07/2019 12:2 8 pm EDT POTASSIUM 3.9 MMOL/L 3.5-5.1 12/07/2019 12:2 8 pm EDT POTASSIUM 3.9 MMOL/L 3.5-5.1 12/07/2019 12:2 8 pm EDT POTASSIUM 3.9 MMOL/L 3.5-5.1 12/07/2019 12:2 8 pm EDT * Complete Blood Count/Auto Diff Performed by: [employer] Value Range Date HEMOGLOBIN 10.8 G/DL 14.0 - 18.0 12/07/2019 12:2 8 pm EDT HEMOGLOBIN 10.8 G/DL 14.0 - 18.0 12/07/2019 12:2 8 pm EDT HEMOGLOBIN 10.8 G/DL 14.0 - 18.0 12/07/2019 12:2 8 pm EDT HEMOGLOBIN 10.8 G/DL 14.0 - 18.0 12/07/2019 12:2 8 pm EDT * Comp Metabolic Panel, AMA Performed by: [employer] Value Range Date OSMOLALITY-CALCULATED 275 MOSM/KG 270 - 310 2019 12:28 pm EDT OSMOLALITY-CALCULATED 275 MOSM/KG 270 - 310 2019 12:28 pm EDT OSMOLALITY-CALCULATED 275 MOSM/KG 270 - 310 2019 12:28 pm EDT OSMOLALITY-CALCULATED 275 MOSM/KG 270 - 310 2019 12:28 pm EDT CREATININE 0.6 MG/DL 0.7-1.3 12/07/2019 12:2 8 pm EDT CREATININE 0.6 MG/DL 0.7-1.3 12/07/2019 12:2 8 pm EDT CREATININE 0.6 MG/DL 0.7-1.3 12/07/2019 12:2 8 pm EDT CREATININE 0.6 MG/DL 0.7-1.3 12/07/2019 12:2 8 pm EDT * Complete Blood Count/Auto Diff Performed by: [employer] Value Range Date PLATELET COUNT 222 K/UL 140-440 12/07/2019 12 :28 pm EDT PLATELET COUNT 222 K/UL 140-440 12/07/2019 12 :28 pm EDT PLATELET COUNT 222 K/UL 140-440 12/07/2019 12 :28 pm EDT PLATELET COUNT 222 K/UL 140-440 12/07/2019 12 :28 pm EDT NEUTROPHILS, % 61.1 % 36.0-66.0 12/07/2019 12 :28 pm EDT NEUTROPHILS, % 61.1 % 36.0-66.0 12/07/2019 12 :28 pm EDT NEUTROPHILS, % 61.1 % 36.0-66.0 12/07/2019 12 :28 pm EDT NEUTROPHILS, % 61.1 % 36.0-66.0 12/07/2019 12 :28 pm EDT * Comp Metabolic Panel, AMA Performed by: [employer] Value Range Date ANION GAP 10 MMOL/L 6 - 17 12/07/2019 12:2 8 pm EDT ANION GAP 10 MMOL/L 6 - 17 12/07/2019 12:2 8 pm EDT ANION GAP 10 MMOL/L 6 - 12/07/2019 12:2 8 pm EDT ANION GAP 10 MMOL/L 6 - 17 12/07/2019 12:2 8 pm EDT CALCIUM 8.2 MG/DL 8.6-10.3 12/07/2019 12:2 8 pm EDT CALCIUM 8.2 MG/DL 8.6-10.3 12/07/2019 12:2 8 pm EDT CALCIUM 8.2 MG/DL 8.6-10.3 12/07/2019 12:2 8 pm EDT CALCIUM 8.2 MG/DL 8.6-10.3 12/07/2019 12:2 8 pm EDT GLUCOSE 114 MG/DL 70-105 12/07/2019 12:2 8 pm EDT GLUCOSE 114 MG/DL 70-105 12/07/2019 12:2 8 pm EDT GLUCOSE 114 MG/DL 70-105 12/07/2019 12:2 8 pm EDT GLUCOSE 114 MG/DL 70-105 12/07/2019 12:2 8 pm EDT BILIRUBIN, TOTAL 0.3 MG/DL 0.3-1.0 12/07/2019 12:28 pm EDT BILIRUBIN, TOTAL 0.3 MG/DL 0.3-1.0 12/07/2019 12:28 pm EDT BILIRUBIN, TOTAL 0.3 MG/DL 0.3-1.0 12/07/2019 12:28 pm EDT BILIRUBIN, TOTAL 0.3 MG/DL 0.3-1.0 12/07/2019 12:28 pm EDT CALCIUM/ALBUMIN RATIO 3.28 2.03 - 2.71 2019 12:28 pm EDT CALCIUM/ALBUMIN RATIO 3.28 2.03 - 2.71 2019 12:28 pm EDT CALCIUM/ALBUMIN RATIO 3.28 2.03 - 2.71 2019 12:28 pm EDT CALCIUM/ALBUMIN RATIO 3.28 2.03 - 2.71 2019 12:28 pm EDT * Complete Blood Count/Auto Diff Performed by: [employer] Value Range Date DIFFERENTIAL TYPE AUTO 12/07/2019 12:28 pm EDT DIFFERENTIAL TYPE AUTO 12/07/2019 12:28 pm EDT DIFFERENTIAL TYPE AUTO 12/07/2019 12:28 pm EDT DIFFERENTIAL TYPE AUTO 12/07/2019 12:28 pm EDT * Comp Metabolic Panel, AMA Performed by: [employer] Value Range Date GFR EST, 163 ML/MIN/1.73m2 >=60 12/07/2019 12:28 pm EDT GFR EST, 163 ML/MIN/1.73m2 >=60 12/07/2019 12:28 pm EDT GFR EST, 163 ML/MIN/1.73m2 >=60 12/07/2019 12:28 pm EDT GFR EST, 163 ML/MIN/1.73m2 >=60 12/07/2019 12:28 pm EDT GFR EST, NON 135 ML/MIN/1.73m2 >=60 12/07/2019 12:28 pm EDT GFR EST, NON 135 ML/MIN/1.73m2 >=60 12/07/2019 12:28 pm EDT GFR EST, NON 135 ML/MIN/1.73m2 >=60 12/07/2019 12:28 pm EDT GFR EST, NON 135 ML/MIN/1.73m2 >=60 12/07/2019 12:28 pm EDT ALBUMIN, SERUM 2.5 G/DL 3.5-5.7 12/07/2019 12 :28 pm EDT ALBUMIN, SERUM 2.5 G/DL 3.5-5.7 12/07/2019 12 :28 pm EDT ALBUMIN, SERUM 2.5 G/DL 3.5-5.7 12/07/2019 12 :28 pm EDT ALBUMIN, SERUM 2.5 G/DL 3.5-5.7 12/07/2019 12 :28 pm EDT ALT (GPT) 18 U/L 7-52 12/07/2019 12:2 8 pm EDT ALT (GPT) 18 U/L 7-52 12/07/2019 12:2 8 pm EDT ALT (GPT) 18 U/L 12/07/2019 12:2 8 pm EDT ALT (GPT) 18 U/L 12/07/2019 12:2 8 pm EDT * Individual Tests: BNP B-Type Natriuretic Peptide Performed by: [employer] Value Range Date BNP 745.0 PG/ML 0.00-100.00 11/21/2019 03:4 7 am EDT BNP 745.0 PG/ML 0.00-100.00 11/21/2019 03:4 7 am EDT * Individual Tests: Discontinued Performed by: [employer] Value Range Date Discontinued Complete 11/16/2019 11:5 5 am EDT Discontinued Complete 11/16/2019 11:5 5 am EDT * Basic Metabolic Panel, AMA Performed by: [employer] Value Range Date GFR EST, 136 ML/MIN/1.73m2 >=60 08/19/2019 12:56 pm EDT GFR EST, 136 ML/MIN/1.73m2 >=60 08/19/2019 12:56 pm EDT GFR EST, 136 ML/MIN/1.73m2 >=60 08/19/2019 12:56 pm EDT GFR EST, NON 112 ML/MIN/1.73m2 >=60 08/19/2019 12:56 pm EDT GFR EST, NON 112 ML/MIN/1.73m2 >=60 08/19/2019 12:56 pm EDT GFR EST, NON 112 ML/MIN/1.73m2 >=60 08/19/2019 12:56 pm EDT CALCIUM 8.0 MG/DL 8.6-10.3 08/19/2019 12:5 6 pm EDT CALCIUM 8.0 MG/DL 8.6-10.3 08/19/2019 12:5 6 pm EDT CALCIUM 8.0 MG/DL 8.6-10.3 08/19/2019 12:5 6 pm EDT OSMOLALITY-CALCULATED 272 MOSM/KG 270 - 310 2019 12:56 pm EDT OSMOLALITY-CALCULATED 272 MOSM/KG 270 - 310 2019 12:56 pm EDT OSMOLALITY-CALCULATED 272 MOSM/KG 270 - 310 2019 12:56 pm EDT CREATININE 0.7 MG/DL 0.7-1.3 08/19/2019 12:5 6 pm EDT CREATININE 0.7 MG/DL 0.7-1.3 08/19/2019 12:5 6 pm EDT CREATININE 0.7 MG/DL 0.7-1.3 08/19/2019 12:5 6 pm EDT ANION GAP 16 MMOL/L 6 - 17 08/19/2019 12:5 6 pm EDT ANION GAP 16 MMOL/L 6 - 17 08/19/2019 12:5 6 pm EDT ANION GAP 16 MMOL/L 6 - 17 08/19/2019 12:5 6 pm EDT GLUCOSE 141 MG/DL 70-105 08/19/2019 12:5 6 pm EDT GLUCOSE 141 MG/DL 70-105 08/19/2019 12:5 6 pm EDT GLUCOSE 141 MG/DL 70-105 08/19/2019 12:5 6 pm EDT BUN/CREATININE RATIO 14 6 - 20 020 12:56 pm EDT BUN/CREATININE RATIO 14 6 - 20 020 12:56 pm EDT BUN/CREATININE RATIO 14 6 - 20 020 12:56 pm EDT POTASSIUM 3.0 MMOL/L 3.5-5.1 08/19/2019 12:5 6 pm EDT POTASSIUM 3.0 MMOL/L 3.5-5.1 08/19/2019 12:5 6 pm EDT POTASSIUM 3.0 MMOL/L 3.5-5.1 08/19/2019 12:5 6 pm EDT SODIUM 140 MMOL/L 136-145 08/19/2019 12:5 6 pm EDT SODIUM 140 MMOL/L 136-145 08/19/2019 12:5 6 pm EDT SODIUM 140 MMOL/L 136-145 08/19/2019 12:5 6 pm EDT BUN 10 MG/DL 7-25 08/19/2019 12:5 6 pm EDT BUN 10 MG/DL 7-08/19/2019 12:5 6 pm EDT BUN 10 MG/DL 7-08/19/2019 12:5 6 pm EDT CHLORIDE 99 MMOL/L 98-107 08/19/2019 12:5 6 pm EDT CHLORIDE 99 MMOL/L 98-107 08/19/2019 12:5 6 pm EDT CHLORIDE 99 MMOL/L 98-107 08/19/2019 12:5 6 pm EDT CARBON DIOXIDE 27.8 MMOL/L 08/19/2019 12 :56 pm EDT CARBON DIOXIDE 27.8 MMOL/L 08/19/2019 12 :56 pm EDT CARBON DIOXIDE 27.8 MMOL/L 08/19/2019 12 :56 pm EDT * Complete Blood Count/No Diff Performed by: [facility] Component Value Range Date MCHC 35.3 G/DL 32-36 08/13/2019 04:5 6 pm EDT MCHC 35.3 G/DL 32-36 08/13/2019 04:5 6 pm EDT MCHC 35.3 G/DL 32-36 08/13/2019 04:5 6 pm EDT MCHC 35.3 G/DL 32-36 08/13/2019 04:5 6 pm EDT MCH 36.0 PG 27-32 08/13/2019 04:5 6 pm EDT MCH 36.0 PG 27-32 08/13/2019 04:5 6 pm EDT MCH 36.0 PG 27-32 08/13/2019 04:5 6 pm EDT MCH 36.0 PG 27-32 08/13/2019 04:5 6 pm EDT HEMATOCRIT 35.4 % 41.0-51.0 08/13/2019 04:5 6 pm EDT HEMATOCRIT 35.4 % 41.0-51.0 08/13/2019 04:5 6 pm EDT HEMATOCRIT 35.4 % 41.0-51.0 08/13/2019 04:5 6 pm EDT HEMATOCRIT 35.4 % 41.0-51.0 08/13/2019 04:5 6 pm EDT WHITE BLOOD CELLS (WBC) 10.3 K/UL 4.0-10.0 10/2019 04:56 pm EDT WHITE BLOOD CELLS (WBC) 10.3 K/UL 4.0-10.0 10/2019 04:56 pm EDT WHITE BLOOD CELLS (WBC) 10.3 K/UL 4.0-10.0 10/2019 04:56 pm EDT WHITE BLOOD CELLS (WBC) 10.3 K/UL 4.0-10.0 10/2019 04:56 pm EDT MCV 102.3 FL 80-94 08/13/2019 04:5 6 pm EDT MCV 102.3 FL 80-94 08/13/2019 04:5 6 pm EDT MCV 102.3 FL 80-94 08/13/2019 04:5 6 pm EDT MCV 102.3 FL 80-94 08/13/2019 04:5 6 pm EDT PLATELET COUNT 154 K/UL 140-440 08/13/2019 04 :56 pm EDT PLATELET COUNT 154 K/UL 140-440 08/13/2019 04 :56 pm EDT PLATELET COUNT 154 K/UL 140-440 08/13/2019 04 :56 pm EDT PLATELET COUNT 154 K/UL 140-440 08/13/2019 04 :56 pm EDT * Basic Metabolic Panel, AMA Performed by: [facility] Component Value Range Date CHLORIDE 105 MMOL/L 98-107 08/13/2019 04:5 6 pm EDT CHLORIDE 105 MMOL/L 98-107 08/13/2019 04:5 6 pm EDT CHLORIDE 105 MMOL/L 98-107 08/13/2019 04:5 6 pm EDT CHLORIDE 105 MMOL/L 98-107 08/13/2019 04:5 6 pm EDT * Complete Blood Count/No Diff Performed by: [facility] Component Value Range Date RED BLOOD CELLS (RBC) 3.46 M/UL 4.5-6.3 2019 04:56 pm EDT RED BLOOD CELLS (RBC) 3.46 M/UL 4.5-6.3 2019 04:56 pm EDT RED BLOOD CELLS (RBC) 3.46 M/UL 4.5-6.3 2019 04:56 pm EDT RED BLOOD CELLS (RBC) 3.46 M/UL 4.5-6.3 2019 04:56 pm EDT * Basic Metabolic Panel, AMA Performed by: [facility] Component Value Range Date BUN 12 MG/DL 7-08/13/2019 04:5 6 pm EDT BUN 12 MG/DL 7-08/13/2019 04:5 6 pm EDT BUN 12 MG/DL 7-08/13/2019 04:5 6 pm EDT BUN 12 MG/DL 7-08/13/2019 04:5 6 pm EDT CARBON DIOXIDE 32.2 MMOL/L 21-31 08/13/2019 04 :56 pm EDT CARBON DIOXIDE 32.2 MMOL/L -08/13/2019 04 :56 pm EDT CARBON DIOXIDE 32.2 MMOL/L -08/13/2019 04 :56 pm EDT CARBON DIOXIDE 32.2 MMOL/L 08/13/2019 04 :56 pm EDT SODIUM 142 MMOL/L 136-145 08/13/2019 04:5 6 pm EDT SODIUM 142 MMOL/L 136-145 08/13/2019 04:5 6 pm EDT SODIUM 142 MMOL/L 136-145 08/13/2019 04:5 6 pm EDT SODIUM 142 MMOL/L 136-145 08/13/2019 04:5 6 pm EDT * Complete Blood Count/No Diff Performed by: [facility] Component Value Range Date HEMOGLOBIN 12.5 G/DL 14.0 - 18.0 08/13/2019 04:5 6 pm EDT HEMOGLOBIN 12.5 G/DL 14.0 - 18.0 08/13/2019 04:5 6 pm EDT HEMOGLOBIN 12.5 G/DL 14.0 - 18.0 08/13/2019 04:5 6 pm EDT HEMOGLOBIN 12.5 G/DL 14.0 - 18.0 08/13/2019 04:5 6 pm EDT * Basic Metabolic Panel, AMA Performed by: [facility] Component Value Range Date POTASSIUM 3.2 MMOL/L 3.5-5.1 08/13/2019 04:5 6 pm EDT POTASSIUM 3.2 MMOL/L 3.5-5.1 08/13/2019 04:5 6 pm EDT POTASSIUM 3.2 MMOL/L 3.5-5.1 08/13/2019 04:5 6 pm EDT POTASSIUM 3.2 MMOL/L 3.5-5.1 08/13/2019 04:5 6 pm EDT BUN/CREATININE RATIO 20 6 - 20 020 04:56 pm EDT BUN/CREATININE RATIO 20 6 - 20 020 04:56 pm EDT BUN/CREATININE RATIO 20 6 - 20 020 04:56 pm EDT BUN/CREATININE RATIO 20 6 - 20 020 04:56 pm EDT * Complete Blood Count/No Diff Performed by: [facility] Component Value Range Date RDW 13.3 % 12.0-16.0 08/13/2019 04:5 6 pm EDT RDW 13.3 % 12.0-16.0 08/13/2019 04:5 6 pm EDT RDW 13.3 % 12.0-16.0 08/13/2019 04:5 6 pm EDT RDW 13.3 % 12.0-16.0 08/13/2019 04:5 6 pm EDT * Basic Metabolic Panel, AMA Performed by: [facility] Component Value Range Date GLUCOSE 109 MG/DL 70-105 08/13/2019 04:5 6 pm EDT GLUCOSE 109 MG/DL 70-105 08/13/2019 04:5 6 pm EDT GLUCOSE 109 MG/DL 70-105 08/13/2019 04:5 6 pm EDT GLUCOSE 109 MG/DL 70-105 08/13/2019 04:5 6 pm EDT CREATININE 0.6 MG/DL 0.7-1.3 08/13/2019 04:5 6 pm EDT CREATININE 0.6 MG/DL 0.7-1.3 08/13/2019 04:5 6 pm EDT CREATININE 0.6 MG/DL 0.7-1.3 08/13/2019 04:5 6 pm EDT CREATININE 0.6 MG/DL 0.7-1.3 08/13/2019 04:5 6 pm EDT OSMOLALITY-CALCULATED 274 MOSM/KG 270 - 310 2019 04:56 pm EDT OSMOLALITY-CALCULATED 274 MOSM/KG 270 - 310 2019 04:56 pm EDT OSMOLALITY-CALCULATED 274 MOSM/KG 270 - 310 2019 04:56 pm EDT OSMOLALITY-CALCULATED 274 MOSM/KG 270 - 310 2019 04:56 pm EDT ANION GAP 8 MMOL/L - 08/13/2019 04:5 6 pm EDT ANION GAP 8 MMOL/L - 08/13/2019 04:5 6 pm EDT ANION GAP 8 MMOL/L - 08/13/2019 04:5 6 pm EDT ANION GAP 8 MMOL/L - 08/13/2019 04:5 6 pm EDT CALCIUM 8.6 MG/DL 8.6-10.3 08/13/2019 04:5 6 pm EDT CALCIUM 8.6 MG/DL 8.6-10.3 08/13/2019 04:5 6 pm EDT CALCIUM 8.6 MG/DL 8.6-10.3 08/13/2019 04:5 6 pm EDT CALCIUM 8.6 MG/DL 8.6-10.3 08/13/2019 04:5 6 pm EDT GFR EST, 162 ML/MIN/1.73m2 >=60 08/13/2019 04:56 pm EDT GFR EST, 162 ML/MIN/1.73m2 >=60 08/13/2019 04:56 pm EDT GFR EST, 162 ML/MIN/1.73m2 >=60 08/13/2019 04:56 pm EDT GFR EST, 162 ML/MIN/1.73m2 >=60 08/13/2019 04:56 pm EDT GFR EST, NON 134 ML/MIN/1.73m2 >=60 08/13/2019 04:56 pm EDT GFR EST, NON 134 ML/MIN/1.73m2 >=60 08/13/2019 04:56 pm EDT GFR EST, NON 134 ML/MIN/1.73m2 >=60 08/13/2019 04:56 pm EDT GFR EST, NON 134 ML/MIN/1.73m2 >=60 08/13/2019 04:56 pm EDT * XRAY CHEST 2 VIEW Performed by: [facility] Component Value Range Date XRAY CHEST 2 VIEW XRAY CHEST 2 VIEWSee NoteFINDINGS: The heart size appears prominent. There are no active infiltrates or changes of pulmonary venous congestion. There is subsegmental atelectasis at the right lung base. There is no radiographic evidence of a pleural effusion.CONCLUSION: No acute cardiopulmonary disease.ELECTRONICALLY SIGNED BY DANISHA AUGUSTIN M.D. 11/03/2021 1:52:53 PM CDT.Reason for Study: R06.89 OTHER ABNORMALITIES OF BREATHINGPrincipal Result Instructor Adjunct Pharmacy Technician: DANISHA AUGUSTIN ([id number])Crayon Grader: ARIE JONES ([email or web address])Forensic Ballistics Expert Crayon Grader: MADINA 11/03/2021 02:53 pm EDT Encounters Encounter Performer Performer Role Encounter Diagnoses Location Date Discharge - Discharged to home or self care - Home - Private home/apt. with no home health services [facility] 08/07/2019 01:00 pm EDT - 08/21/2019 11:30 am EDT Discharge - Discharged / Transferred to another [facility] 11/09/2019 06:00 pm EDT - 11/10/2019 04:00 am EDT Discharge - Discharged / Transferred to another [facility] 11/18/2019 02:01 am EDT - 11/25/2019 04:00 pm EDT Discharge - Discharged / Transferred to another [facility] 12/01/2019 07:00 pm EDT - 12/18/2019 01:00 pm EDT Discharge - Discharged / Transferred to another type of institution - Assisted Living - [facility] 11/01/2021 11:46 pm EDT - 12/22/2021 04:31 pm EDT Social History
--- OUTSIDE RECORDS SUMMARY | 2024-04-08 10:32 | XMS_ITS | Encounter Summary ---
Author Organization [facility] Address [address] [place] [address] Care Team Providers Care Tire Design Engineer Name Role Phone Jean-Claude Crawford MD Unavailable [phone] Jessie Delvalle MD Unavailable + Sandip Barone MD Unavailable [phone] Abiodun Novak MD Primary Care Provider [phone] Encounter Details Date Type Department Care Team (Latest Contact Info) Description 08/21/2022 7:43 AM CDT - 08/21/2022 11:59 PM CDT Hospital Encounter [facility] Orthopedics and Sports Medicine [address] [address] Discharge Disposition: Discharge to home or self care Social History Tobacco Use Types Packs/Day Years Used Date Smoking Tobacco: Every Day Cigarettes 1 59 Started: 1965 Smokeless Tobacco: Never Alcohol Use Standard Drinks/Week Comments Yes 0 (1 standard drink = 0.6 oz pur e alcohol) limited Social Connection and Isolation Panel [NHANES] A nswer Date Recorded In a typical week, how many times do you talk on the phone with family, friends, or neighbors? Three times a week 07/31/2022 How often do you get togethe r with friends or relatives? Never 07/31/2022 How often do you attend [facility] or rastafarian services? Never 07/31/2022 Do you belong to any clubs o r organizations such as episcopalian groups, unions, fraternal or athletic groups, or [...] place to sleep or slept in a correction (including now)? 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 Gender Identity Not on file Sexual Orientation Not on file documented as of this encounter Medications at Time of Discharge acetaminophen (TYLENOL) 325 mg tablet Take 2 tablets (650 mg total) by mouth every 4 (four) hours as needed for pain 30 tablet 07/07/2021 albuterol 2.5 mg /3 mL (0.083 %) nebulizer solution Take 3 mL (2.5 mg total) by nebulization every 6 (six) hours as needed for wheezing amLODIPine (NORVASC) 5 mg tablet Take 1 tablet (5 mg total) by mouth daily 30 tablet 11 10/28/2021 aspirin 81 mg enteric coated tablet Take 1 tablet (81 mg total) by mouth daily atorvastatin (LIPITOR) 10 mg tablet Take 1 tablet (10 mg total) by mouth nightly cholecalciferol (VITAMIN D-3) 5,000 unit tabletIndications :Vitamin D Deficiency Take 1 tablet (5,000 Units total) by mouth every other day divalproex DR (DEPAKOTE) 250 mg EC tablet Take 125 mg by mouth 3 (three) times a day as needed (Increasing agitation) fluticasone propion-salmetero L (ADVAIR DISKUS) 100-50 mcg/dose diskus inhaler Inhale 1 puff daily Rinse mouth with water after use. Do not swallow. folic acid (FOLVITE) 1 mg tablet Take 1 tablet (1 mg total) by mouth daily losartan (COZAAR) 100 mg tablet 08/15/2022 metoprolol (LOPRESSOR) 100 mg tabletIndications :Atrial fibrillation, unspecified type (HCC) Take 1 tablet (100 mg total) by mouth 2 (two) times a day 180 tablet 3 08/03/2022 ramelteon (ROZEREM) 8 mg tabletIndications :Sleep-Onset Insomnia Take 1 tablet (8 mg total) by mouth nightly 30 tablet 11 07/07/2021 senna (SENOKOT) 8.6 mg tablet Take 1 tablet by mouth 2 (two) times a day terazosin (HYTRIN) 10 mg capsule Take 1 capsule (10 mg total) by mouth daily amLODIPine (NORVASC) 10 mg tablet 08/15/2022 calcium carbonate (OS-KARL) 1,500 mg (600 mg elemental) tablet calcium carbonate 600 mg calcium (1,500 mg) tablet 3 cholecalciferol (VITAMIN D-3) 5,000 unit capsule 08/15/2022 3 clopidogreL (PLAVIX) 75 mg tablet clopidogrel 75 mg tablet 3 losartan (COZAAR) 50 mg tablet Take 2 tablets (100 mg total) by mouth daily 60 tablet 11 08/03/[address] (PROTONIX) 40 mg EC tablet Take 1 tablet (40 mg total) by mouth daily 3 documented as of this encounter Discharge Disposition Disposition Code Departure Means Destination Discharge to home or self care documented in this encounter Plan of Treatment Not on file documented as of this encounter Procedures Procedure Name Priority Date/Time Associated Diagnosis Comments XR SHOULDER RIGHT 2 OR MORE VIEWS Routine 08/21/2022 10:18 AM CDT Right shoulder pain, unspecified chronicity documented in this encounter Results * XR Shoulder Right 2 or More Views (08/21/2022 10:18 AM CDT) Anatomical Region Laterality Modality Upper Extremities, Shoulder Right Digi demar Radiography Narrative 08/21/2022 10:32 AM CDT Comminuted impacted proximal humerus fracture is again viewed. Interval callus formation noted with no worsening displacement of fracture. Byron Torres HIM TECH IMG XR PROCEDURES Final Result documented in this encounter Visit Diagnoses Not on filedocumented in this encounter Additional Health Concerns Infection Onset Date Last Indicated Resolved Time MDR gram neg/ESBL Comment:06/16/2021 IP Review - Pt with scrotal abscess, but is not actively draining (last documented draining on 06/14). Pt remains intubated so requires trach aspirate for isolation discontinuation. Provider notified. Amanda Walker RN 12/19/2019 12/19/2019 documented as of this encounter Care Teams Tire Design Engineer Relationship Specialty Start Date End Date Abiodun Novak MD [address] [place] [address] PCP - General Cardiology 06/13/22 05/09/23 Jean-Claude Crawford MD [address] [place] [address] Family Medicine 04/12/20 Jessie Delvalle MD [address] [place] [address] Orthopedic Surgery 07/07/21 Sandip Barone MD [address] [address] Consulting Physician Neurosurgery 07/07/21 documented as of this encounter
--- OUTSIDE RECORDS SUMMARY | 2024-04-08 10:32 | XMS_ITS | Encounter Summary ---
Author Organization [facility] Address [address] [place] [address] Care Team Providers Care Disintegrator Operator Name Role Phone Jean-Claude Crawford MD Unavailable Jessie Delvalle MD Unavailable + Sandip Barone MD Unavailable [phone] Abiodun Novak MD Primary Care Provider [phone] Encounter Details Date Type Department Care Team (Late st Contact Info) Description 08/16/2022 Telephone [facility] Orthopedics and Sports Medicine [address] [place] [address] Corine Morgan MA Social History Tobacco Use Types Packs/Day Years [...] often do you attend chur ch or anabaptism services? Never 07/31/2022 Do you belong to any clubs o r organizations such as presybeterian groups, unions, fraternal or athletic groups, or [...] place to sleep or slept in a chcf (including now)? No 07/31/2022 Personal Safety Answer Date Recorded Have you ever been in or are you currently in a harmful physical or emotional relationship or is someone making you feel afraid or unsafe? 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 Other just a FYI. Thank you * Telephone Encounter - Corine Morgan MA - 08/16/2022 9:56 AM CDT Nurse at [facility] called to give a FYI, patient has been non-compliant, can be verbally abusive.She states he has dementia. She is asking for a detailed OV/H&P, will need for insurance. Thankyou. Patient has appointment on 08/21/22 documented in this encounter Plan of Treatment Not on file documented as of this encounter Visit Diagnoses Not on filedocumented [...] documented as of this encounter Care Teams Disintegrator Operator Relationship Specialty Start Date End Date Abiodun Novak MD [address] [place] [address] PCP - General Cardiology 06/13/22 05/09/23 Jean-Claude Crawford MD [address] [place] [address] Family Medicine 04/12/20 Jessie Delvalle MD [address] [place] [address] [address] [place] [address] Orthopedic Surgery 07/07/21 Sandip Barone MD [address] [address] [place] [address] Consulting Physician Neurosurgery 07/07/21 documented as of this encounter
--- OUTSIDE RECORDS SUMMARY | 2024-04-08 10:32 | XMS_ITS | Encounter Summary ---
Author Organization [facility] Address [address] [place] [address] Care Team Providers Care Brothel Keeper Name Role Phone Jean-Claude Crawford MD Unavailable [phone] Jessie Delvalle MD Unavailable + Sandip Barone MD Unavailable [phone] Abiodun Novak MD Primary Care Provider [phone] Reason for Visit * Reason Comments Pain Encounter Details Date Type Department Care Team (Late st Contact Info) Description 08/21/2022 10:00 AM CDT Office Visit [facility] Orthopedics and Sports Medicine [address] [place] [address] Byron Torres NP [address] [facility] [address] [place] [address] Right shoulder pain, unspecified chronicity (Primary Dx); Closed fracture of proximal end of right humerus, unspecified fracture morphology, initial encounter Social History Tobacco Use Types Packs/Day Years Used Date Smoking Tobacco: Every Day Cigarettes 1 59 Started: 1965 Smokeless Tobacco: Never Alcohol Use Standard Drinks/Week [...] often do you attend chur ch or rastafari services? Never 07/31/2022 Do you belong to any clubs o r organizations such as religion groups, unions, fraternal or athletic groups, or [...] place to sleep or slept in a senior care (including now)? 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 Progress Note Patient: Lloyd Redman ( - 1950) is a 72 y.o. male. Visit Date: 08/21/2022 Chief Complaint Patient presents with Right Shoulder - Pain History of Present Illness: Patient is here for hospital follow up for proximal humerus fracture. Patient was admitted 07/29/22 after sustaining a ground level fall and suffered a right proximal humerus fracture. He is back living at his memory care facility [facility]. Patient describes the pain as a sharp pain that is mild in severity. Rest and sling makes the pain better. Movement makes the pain worse. Patient has tried sling for conservative care. This is evaluated as a personal injury. While hospitalized case was reviewed with Dr. Saunders who recommends conservative management of thefracture. 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 HTN (hypertension) Hyperlipidemia Hypertension TIA (transient ischemic attack) Vitamin D deficiency Current Medications: Current Outpatient Medications Medication Sig Dispense Refill acetaminophen (TYLENOL) 325 mg tablet Take 2 tablets (650 mg total) by mouth every 4 (four) hours as needed for pain 30 tablet 0 albuterol 2.5 mg /3 mL (0.083 %) nebulizer solution Take 3 mL (2.5 mg total) by nebulization every 6 (six) hours as needed for wheezing amLODIPine (NORVASC) 5 mg tablet Take 1 tablet (5 mg total) by mouth daily 30 tablet 11 aspirin 81 mg enteric coated tablet Take 1 tablet (81 mg total) by mouth daily atorvastatin (LIPITOR) 10 mg tablet Take 1 tablet (10 mg total) by mouth nightly cholecalciferol (VITAMIN D-3) 5,000 unit tablet Take 1 tablet (5,000 Units total) by mouth every other day fluticasone propion-salmeteroL (ADVAIR DISKUS) 100-50 mcg/dose diskus inhaler Inhale 1 puff daily Rinse mouth with water after use. Do not swallow. folic acid (FOLVITE) 1 mg tablet Take 1 tablet (1 mg total) by mouth daily losartan (COZAAR) 50 mg tablet Take 2 tablets (100 mg total) by mouth daily 60 tablet 11 metoprolol (LOPRESSOR) 100 mg tablet Take 1 tablet (100 mg total) by mouth 2 (two) times a day 180 tablet 3 senna (SENOKOT) 8.6 mg tablet Take 1 tablet by mouth 2 (two) times a day terazosin (HYTRIN) 10 mg capsule Take 1 capsule (10 mg total) by mouth daily calcium carbonate (OS-KARL) 1,500 mg (600 mg elemental) tablet calcium carbonate 600 mg calcium (1,500 mg) tablet clopidogreL (PLAVIX) 75 mg tablet clopidogrel [address] (DEPAKOTE) 250 mg EC tablet Take 125 mg by mouth 3 (three) times a day as needed (Increasing agitation) (Patient not taking: Reported on 08/21/2022) pantoprazole DR (PROTONIX) 40 mg EC tablet Take 1 tablet (40 mg total) by mouth daily (Patient not taking: Reported on 08/21/2022) ramelteon (ROZEREM) 8 mg tablet Take 1 tablet (8 mg total) by mouth nightly 30 tablet 11 No current facility-administered medications for this visit. Family History: Family History Problem Relation Age of Onset Hypertension Mother Lung cancer Father Cancer Father Anesthesia problems Neg Hx Social History: Tobacco Use: High Risk (07/31/2022) Patient History Smoking Tobacco Use: Every Day Smokeless Tobacco Use: Never Passive Exposure: Not on file Review of Systems: Review of Systems Constitutional: Negative for activity change, appetite change, chills, fever and unexpected weight change. HENT: Negative for congestion, dental problem, ear pain, hearing loss, nosebleeds, tinnitus and voice change. Eyes: Negative for pain and visual disturbance. Respiratory: Negative for apnea, cough, chest tightness and shortness of breath. Cardiovascular: Negative for chest pain, palpitations and leg swelling. Gastrointestinal: Negative for blood in stool, constipation, diarrhea, nausea and vomiting. Endocrine: Negative for cold intolerance and heat intolerance. Genitourinary: Negative for difficulty urinating, hematuria and urgency. Skin: Negative for color change, rash and wound. Allergic/Immunologic: Negative for environmental allergies. Neurological: Negative for dizziness, syncope, numbness and headaches. Hematological: Negative for adenopathy. Does not bruise/bleed easily. Psychiatric/Behavioral: Negative for confusion. The patient is not nervous/anxious and is not hyperactive. Physical Exam: Vitals: 08/21/22 1007 BP: 118/82 Pulse: 76 Right shoulder Inspection Erythema: absent Effusion: 1+ Swelling: mild Skin temperature: normal Atrophy: absent Surgical scar/wound: absent. Palpation Tenderness is present. The patient has tenderness in the anterior shoulder and lateral shoulder area(s). Neurovascular The patient has normal vascular on the right side of his body. He has normal sensation on the right side of his body. Left shoulder The patient has normal inspection, palpation, range of motion, strength, and stability of the left shoulder. Right elbow The patient has normal inspection, palpation, range of motion, strength, and stability of the rightelbow. Right hand/wrist The patient has normal inspection, palpation, range of motion, strength, and stability of the righthand and wrist. Inspection Edema: present Imaging Findings: XR Shoulder Right 2 or More Views Comminuted impacted proximal humerus fracture is again viewed. Interval callus formation noted withno worsening displacement of fracture. Assessment and Plan: Diagnoses and all orders for this visit: Right shoulder pain, unspecified chronicity (Primary) - XR Shoulder Right 2 or More Views Closed fracture of proximal end of right humerus, unspecified fracture morphology, initial encounter Discussed clinical exam and x-ray findings with the patient. We will continue a conservative treatment care plan. He should continue with sling, remove several times per day for hygiene, elbow and wrist ROM. No shoulder ROM at this time. Continue to use wheelchair for mobility to help avoid falls. Follow up 8 weeks for repeat exam and x-ray. If continued healing may wean sling and initiate PT atthat time. Further conservative measures including ice/heat, avoidance of aggravating activities, OTC NSAIDs/analgesics p.r.n. (if able to take), OTC analgesic creams reviewed with patient today. HEP was discussed with the patient. All patient questions and concerns were addressed at this visit. Patient may call with any further questions or concerns. Rendering Provider & Department: Byron Torres NP [facility] ORTHOPEDICS AND SPORTS MEDICINE [address] [place] [id number] August 21, 2022 10:33 AM documented in this encounter Plan of Treatment [...] no worsening displacement of fracture. Byron Torres NP IMG XR PROCEDURES Final Result documented in this encounter Visit Diagnoses Diagnosis Right shoulder pain, unspecified chronicity- Primary Closed fracture of proximal end of right humerus, unspecified fracture morphology, initial encounter documented in this encounter Historical Medications * This list may reflect changes made after this encounter. clopidogreL (PLAVIX) 75 mg tablet clopidogrel 75 mg tablet 3 calcium carbonate (OS-KARL) 1,500 mg (600 mg elemental) tablet calcium carbonate 600 mg calcium (1,500 mg) tablet 3 added in this encounter Additional Health Concerns Infection Onset Date Last Indicated Resolved Time MDR gram neg/ESBL Comment:06/16/2021 IP Review - Pt with scrotal abscess, but is not actively draining (last documented draining on 06/14). Pt remains intubated so requires trach aspirate for isolation discontinuation. Provider notified. Amanda Walker RN 12/19/2019 12/19/2019 documented as of this encounter Care Teams Brothel Keeper Relationship Specialty Start Date End Date Abiodun Novak MD [address] [place] [address] PCP - General Cardiology 06/13/22 05/09/23 Jean-Claude Crawford MD [address] [place] [address] Family Medicine 04/12/20 Jessie Delvalle MD [address] [place] [address] Orthopedic Surgery 07/07/21 Sandip Barone MD [address] [facility] [address] [place] [address] Consulting Physician Neurosurgery 07/07/21 documented as of this encounter
--- OUTSIDE RECORDS SUMMARY | 2024-04-08 10:32 | XMS_ITS | Encounter Summary ---
Author Organization [facility] Address [address] [place] [address] Care Team Providers Care Car Body Inspector Name Role Phone Jean-Claude Crawford MD Unavailable [phone] Jessie Delvalle MD Unavailable + Sandip Barone MD Unavailable Abiodun Novak MD Primary Care Provider [phone] Reason for Visit * Reason Onset Date Comments JOSÉ MANUEL insurance Auth 08/27/2022 Encounter Details Date Type Department Care Team (Late st Contact Info) Description 08/27/2022 Telephone [facility] Cardiology [address] [place] [address] Pedro Luis Mccormack MD [address] [place] [address] JOSÉ MANUEL insurance Auth Social History Tobacco Use Types Packs/Day Years [...] often do you attend chur ch or advent services? Never 07/31/2022 Do you belong to any clubs o r organizations such as muslim groups, unions, fraternal or athletic groups, or [...] place to sleep or slept in a retirement (including now)? 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 Gender Identity Not on file Sexual Orientation Not on file documented as of this encounter Miscellaneous Notes * Telephone Encounter - Mariaa Hanley RN - 08/27/2022 2:42 [place] [id number] on 08/29/22 [id number] 08/27/22-11/24/22 documented in this encounter Plan of Treatment [...] documented as of this encounter Care Teams Car Body Inspector Relationship Specialty Start Date End Date Abiodun Novak MD [address] [facility] [place] [address] PCP - General Cardiology 06/13/22 05/09/23 Jean-Claude Crawford MD [address] [place] [address] Family Medicine 04/12/20 Jessie Delvalle MD [address] [place] [address] Orthopedic Surgery 07/07/21 Sandip Barone MD [address] [facility] [address] [place] [address] Consulting Physician Neurosurgery 07/07/21 documented as of this encounter
--- OUTSIDE RECORDS SUMMARY | 2024-04-08 10:32 | XMS_ITS | Encounter Summary ---
Author Organization [facility] Address [address] [place] [address] Care Team Providers Care Coremaking Machine Operator Name Role Phone Jean-Claude Crawford MD Unavailable Jessie Delvalle MD Unavailable + Sandip Barone MD Unavailable [phone] Carey Dorsey CONTROL SYSTEM COMPUTER SCIENTIST Primary Care Provi jovanny Encounter Details Date Type Department Care Team (Late st Contact Info) Description 08/05/2023 Orders Only [facility] Cardiology [address] [place] [address] Donavan Monahan MD [address] [place] [address] Social History Tobacco Use Types Packs/Day Years [...] often do you attend chur ch or faith services? Never 07/31/2022 Do you belong to any clubs o r organizations such as orthodox groups, unions, fraternal or athletic groups, or [...] place to sleep or slept in a half-way (including now)? No 07/31/2022 Personal Safety Answer Date Recorded Have you ever been in or are you currently in a harmful physical or emotional relationship or is someone making you feel afraid or unsafe? 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 Gender Identity Not on file Sexual Orientation Not on file documented as of this encounter Plan of Treatment Not on file documented as of this encounter Procedures Procedure Name Priority Date/Time Associated Diagnosis Comments CARDIOLOGY DOCUMENT SCAN Routine 08/02/2023 3:36 PM CDT documented in this encounter Results * Cardiology Document Scan (08/02/2023 3:36 PM CDT) Anatomical Region Laterality Modality Other us Donavan Monahan MD [facility] Final Result documented in this encounter Visit [...] documented as of this encounter Care Teams Coremaking Machine Operator Relationship Specialty Start Date End Date Carey Dorsey NP [address] [place] [address] PCP - General Family Medicine 05/15/23 Jean-Claude Crawford MD [address] [facility] [address] [place] [address] Family Medicine 04/12/20 Jessie Delvalle MD [address] [facility] [address] [place] [address] Orthopedic Surgery 07/07/21 Sandip Barone MD [address] [address] Consulting Physician Neurosurgery 07/07/21 documented as of this encounter
--- OUTSIDE RECORDS SUMMARY | 2024-04-08 10:32 | XMS_ITS | Encounter Summary ---
Author Organization [facility] Healthcare Address [address] [place] [address] Care Team Providers Care Inside Steward/Stewardess Name Role Phone Jean-Claude Crawford MD Unavailable [phone] Jessie Delvalle MD Unavailable + Sandip Barone MD Unavailable [phone] Abiodun Novak MD Primary Care Provider [phone] Reason for Visit * Reason Comments Atrial Fibrillation Encounter Details Date Type Department Care Team (Late st Contact Info) Description 01/16/2023 10:30 AM CDT Office Visit [facility] Cardiology [address] [facility] [address] [place] [address] Savana Nicole NP [address] [facility] [address] [place] [address] Presence of Watchman left atrial appendage closure device (Primary Dx); Chronic atrial fibrillation (HCC); Essential hypertension Social History Tobacco Use Types Packs/Day Years [...] often do you attend chur ch or voodoo services? Never 07/31/2022 Do you belong to any clubs o r organizations such as zoroastrian groups, unions, fraternal or athletic groups, or [...] place to sleep or slept in a intermediate (including now)? No 07/31/2022 Personal Safety Answer Date Recorded Have you ever been in or are you currently in a harmful physical or emotional relationship or is someone making you feel afraid or unsafe? 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 Gender Identity Not on file Sexual Orientation Not on file documented as of this encounter Last Filed Vital Signs Vital Sign Reading Time Taken Comments Blood Pressure 102/60 01/16/2023 10:24 AM CDT Pulse 72 01/16/2023 10:24 AM CDT Temperature - - Respiratory Rate - - Oxygen Saturation 96% 01/16/2023 10:24 AM CDT Inhaled Oxygen Concentration - - Weight - - Height 180.3 cm (5' 11 ) 01/16/2023 10:24 AM CDT Body Mass Index - - documented in this encounter Progress Notes * Savana Nicole NP - 01/16/2023 10:30 AM CDT [facility] [place] Cardiology [address] [address] Cardiology MD Donavan Still, MD Ray Marmolejo, MD Abiodun Novak, MD Dmitry Das, MD Clarence Wilkes, MD Linwood Meza, MD Pedro Luis Mccormack, MD Dr. Cuong Guzman, MD Rui Villegas, MD Andreas Wheeler, MD Savana Nicole, GARIMA Dowling, GARIMA Montano, GARIMA Palacios, ENTRY LEVEL TRUCK DRIVER Patient Name: Lloyd A Sale Provider: RUBEN Smith : 1950 Date of Service: 01/16/2023 Referring: Kishore CHIEF COMPLAINT: Atrial Fibrillation HISTORY OF PRESENT ILLNESS: 72 y.o. male with a history of chronic atrial fibrillation, dyslipidemia hypertension, frequent falls and prior intracranial hemorrhage who is in the office today for his 6 month Watchman follow-up. Patient had a Watchman device placed on 07/17/[address] Mccormack. Patient's last echo done on 08/29/2022 showed well-seated Watchman device with no thrombus, but did have a 3 mm color Doppler flowaround the device. Since having his device placed, patient reports feeling well. He denies any new or worsening cardiac symptoms. He is taking all of his cardiac medications as prescribed and trying to adhere to a heart healthy diet. Patient denies chest pain, shortness of breath, orthopnea, lightheadedness, dizziness, palpitations, claudication, edema and syncope. MEDICATIONS: Current Outpatient Medications: acetaminophen (TYLENOL) 325 mg tablet, Take 2 tablets (650 mg total) by mouth every 4 (four) hours as needed for pain, Disp: 30 tablet, Rfl: 0 albuterol 2.5 mg /3 mL (0.083 %) nebulizer solution, Take 3 mL (2.5 mg total) by nebulization every6 (six) hours as needed for wheezing, Disp: , Rfl: aspirin 81 mg enteric coated tablet, Take 1 tablet (81 mg total) by mouth daily, Disp: , Rfl: atorvastatin (LIPITOR) 10 mg tablet, Take 1 tablet (10 mg total) by mouth nightly, Disp: , Rfl: amLODIPine (NORVASC) 5 mg tablet, Take 1 tablet (5 mg total) by mouth daily, Disp: 30 tablet, Rfl: 11 cholecalciferol (VITAMIN D-3) 5,000 unit tablet, Take 1 tablet (5,000 Units total) by mouth every other day, Disp: , Rfl: clopidogreL (PLAVIX) 75 mg tablet, clopidogrel 75 mg tablet, Disp: , Rfl: divalproex DR (DEPAKOTE) 250 mg EC tablet, Take 125 mg by mouth 3 (three) times a day as needed (Increasing agitation) (Patient not taking: Reported on 08/29/2022), Disp: , Rfl: fluticasone propion-salmeteroL (ADVAIR DISKUS) 100-50 mcg/dose diskus inhaler, Inhale 1 puff daily Rinse mouth with water after use. Do not swallow., Disp: , Rfl: folic acid (FOLVITE) 1 mg tablet, Take 1 tablet (1 mg total) by mouth daily, Disp: , Rfl: L. acidophilus/L. bifidus (LACTOBACILLUS ACIDOPH-L. BIFID ORAL), Take by mouth, Disp: , Rfl: losartan (COZAAR) 100 mg tablet, , Disp: , Rfl: metoprolol (LOPRESSOR) 100 mg tablet, Take 1 tablet (100 mg total) by mouth 2 (two) times a day, Disp: 180 tablet, Rfl: 3 omeprazole (PriLOSEC) 20 mg capsule, Take 1 capsule (20 mg total) by mouth daily, Disp: , Rfl: ramelteon (ROZEREM) 8 mg tablet, Take 1 tablet (8 mg total) by mouth nightly, Disp: 30 tablet, Rfl:11 senna (SENOKOT) 8.6 mg tablet, Take 1 tablet by mouth 2 (two) times a day, Disp: , Rfl: terazosin (HYTRIN) 10 mg capsule, Take 1 capsule (10 mg total) by mouth daily, Disp: , Rfl: REVIEW OF SYSTEMS: General: No fever or chills Eyes: No double vision or eye pain ENT: No tinnitus, no sore throat Pulmonary: No dyspnea, cough or orthopnea Cardiac: No chest pain or palpitations GI: No nausea, vomiting, diarrhea Musculoskeletal: No myalgia or joint swelling Skin: no rashes Neuro: No headaches or parathesias Endocrine: No cold or heat intolerance Heme: no excessive bleeding or bruising PHYSICAL EXAM: BP 102/60 Pulse 72 Ht 180.3 cm (5' 11 ) SpO2 96% BMI 25.10 kg/m?? Body mass index is 25.1 kg/m??. General: Elderly WM ;cooperative: no acute distress Eyes: SARINA/EOMI, Conjuctiva Clear ENT: External ears/nose normal Neck: Supple; no JVD or bruits Respiratory: Clear to ausculation bilaterally; no wheezing or rales; respirations nonlabored Cardiovascular: Irregular rhythm, no murmur, rub or gallop Gastrointestinal: soft, non-tender abdomen Extremities: no cyanosis or clubbing or edema Musculoskeletal: no obvious joint deformities Skin: no obvious rash or bruising Psychiatric: normal affect Neurologic: A&O x 4, no focal deficits LABS: Lab Results Component Value Date TSH 0.80 06/12/2021 TSH 2.02 02/19/2020 CHOL 113 06/12/2021 HDL 44 06/12/2021 LDLCALC 51 06/12/2021 CHOLHDL 3 06/12/2021 TRIG 92 06/12/2021 Lab Results Component Value Date WBC 4.8 08/03/2022 WBC 6.7 08/02/2022 WBC 7.2 08/01/2022 RBC 2.77 (L) 08/03/2022 RBC 2.69 (L) 08/02/2022 RBC 2.76 (L) 08/01/2022 HGB 9.1 (L) 08/03/2022 HGB 8.8 (L) 08/02/2022 HGB 9.1 (L) 08/01/2022 HCT 27.5 (L) 08/03/2022 HCT 26.2 (L) 08/02/2022 HCT 27.5 (L) 08/01/2022 MCV 99.3 (H) 08/03/2022 MCV 97.4 (H) 08/02/2022 MCV 99.6 (H) 08/01/2022 MCH 32.9 08/03/2022 MCH 32.7 08/02/2022 MCH 33.0 08/01/2022 MCHC 33.1 08/03/2022 MCHC 33.6 08/02/2022 MCHC 33.1 08/01/2022 MPV 10.1 08/03/2022 MPV 10.5 08/02/2022 MPV 10.8 08/01/2022 NRBCABS 0.00 08/03/2022 NRBCABS 0.00 08/02/2022 NRBCABS 0.00 08/01/2022 Lab Results Component Value Date SODIUM 136 07/31/2022 SODIUM 140 07/29/2022 SODIUM 143 07/17/2022 POTASSIUM 3.8 07/31/2022 POTASSIUM 3.7 07/29/2022 POTASSIUM 3.5 07/17/2022 CO2 26 07/31/2022 CO2 26 07/29/2022 CO2 27 07/17/2022 BUNSER 17 07/31/2022 BUNSER 15 07/29/2022 BUNSER 12 07/17/2022 GLUCOSE 101 07/31/2022 GLUCOSE 150 07/29/2022 GLUCOSE 107 07/17/2022 CREATININE 0.97 07/31/2022 CREATININE 0.69 (L) 07/29/2022 CREATININE 0.76 (L) 07/17/2022 CALCIUM 8.5 07/31/2022 CALCIUM 8.7 07/29/2022 CALCIUM 8.4 (L) 07/17/2022 CHLORIDE 102 07/31/2022 CHLORIDE 104 07/29/2022 CHLORIDE 109 07/17/2022 ALBUMIN 3.4 (L) 07/29/2022 ALBUMIN 3.2 (L) 10/26/2021 ALBUMIN 3.2 (L) 10/04/2021 AST 39 07/29/2022 AST 32 10/04/2021 AST 26 06/24/2021 ALT 55 07/29/2022 ALT 17 10/04/2021 ALT 16 06/24/2021 ALKPHOS 110 07/29/2022 ALKPHOS 118 10/04/2021 ALKPHOS 88 06/24/2021 BILITOT 0.6 07/29/2022 BILITOT 0.4 10/04/2021 BILITOT 0.2 06/24/2021 PROT 5.8 (L) 07/29/2022 PROT 5.5 (L) 10/04/2021 PROT 6.1 (L) 06/24/2021 ANIONGAP 9 07/31/2022 ANIONGAP 10 07/29/2022 ANIONGAP 7 07/17/2022 CARDIOGRAPHICS: Echo 08/29/2022 Conclusions: 1. Grossly normal left ventricular systolic function based on limited views. Inadequate for detailed regional wall motion assessment. Ejection Fraction is estimated at 65 %. 2. Normal right ventricular size. Normal right ventricular systolic function. 3. Borderline mild aortic root dilatation. Normal size descending thoracic aorta. Ascending aorta is normal in size. 4. There is a left atrial appendage occlusion device in-situ. It appears well-seated. There is no thrombus on the external surface of the device. There is a color Doppler flow around the device; vena contracta approximately 3 mm. Echo 07/30/2022 Conclusions: Mild concentric left ventricular hypertrophy. Normal left ventricular size. Normal global left ventricular systolic function. Normal left ventricular diastolic function. Ejection fraction is visually estimated at 70 %. Normal right ventricular size. Normal right ventricular systolic function. There is mild enlargement of left atrium. The right atrium is normal in size. Watchman procedure 07/17/2022 A/P: Successful Watchman FLX procedure with 27mm device deployed ASSESSMENT & PLAN: 1. S/p Watchman device (27 mm) Cholo done 08/29/2022 shows a well-seated device with no thrombus, but a 3 mm residual leak - Stop Plavix - Continue aspirin 81 mg p.o. daily - Will schedule 1 year watchman follow-up 2. Chronic atrial fibrillation Rate controlled -Continue metoprolol -Watchman device in place 3. Hypertension Blood pressure controlled -Continue losartan, metoprolol and amlodipine -Encouraged low-sodium diet This note was dictated with voice-recognition software, ms sql server developer errors may be present. Savana Nicole NP Cosigned by Pedro Luis Mccormack MD at 01/16/2023 10:55 AM CDT documented in this encounter Plan of Treatment Not on file documented as of this encounter Visit Diagnoses Diagnosis Presence of Watchman left atrial appendage closure device- Primary Chronic atrial fibrillation (HCC) Atrial fibrillation Essential hypertension Unspecified essential hypertension documented in this encounter Discontinued Medications Medication Sig Discontinue Reason Start Date End Da te clopidogreL (PLAVIX) 75 mg tablet clopidogrel 75 mg tablet 01/16/2023 documented as of this encounter Historical Medications * This list may reflect changes made after this encounter. fluticasone propion-salmetero L (ADVAIR DISKUS) 100-50 mcg/dose diskus inhaler Inhale 1 puff 2 (two) times a day Rinse mouth with water after use. Do not swallow. added in this encounter Additional Health Concerns Infection Onset Date Last Indicated Resolved Time MDR gram neg/ESBL Comment:06/16/2021 IP Review - Pt with scrotal abscess, but is not actively draining (last documented draining on 06/14). Pt remains intubated so requires trach aspirate for isolation discontinuation. Provider notified. Amanda Walker RN 12/19/2019 12/19/2019 documented as of this encounter Care Teams Inside Steward/Stewardess Relationship Specialty Start Date End Date Abiodun Novak MD [address] [facility] [address] [place] [address] PCP - General Cardiology 06/13/22 05/09/23 Jean-Claude Crawford MD [address] [facility] [address] [place] [address] Family Medicine 04/12/20 Jessie Delvalle MD [address] [facility] [address] [place] [address] Orthopedic Surgery 07/07/21 [place] [address] [place] [address] [address] [place] [address] Consulting Physician Neurosurgery 07/07/21 documented as of this encounter
--- OUTSIDE RECORDS SUMMARY | 2024-04-08 10:32 | XMS_ITS | Encounter Summary ---
Author Organization [facility] Healthcare Address [address] [place] [address] Care Team Providers Care Shredder Tender Name Role Phone Jean-Claude Crawford MD Unavailable [phone] Jessie Delvalle MD Unavailable + Sandip Barone MD Unavailable Carey Dorsey ELECTROMAGNET CRANE OPERATOR Primary Care Provi jovanny Reason for Visit * Reason Comments Atrial Fibrillation Encounter Details Date Type Department Care Team (Late st Contact Info) Description 05/15/2023 12:00 PM INFORMATION SECURITY ARCHITECT Office Visit [facility] Cardiology [address] [facility] [address] [place] [address] Abiodun Novak MD [facility] [facility] [address] [place] [address] Chronic atrial fibrillation (HCC) (Primary Dx); Essential hypertension; Hypercholesterolemia Social History Tobacco Use Types Packs/Day Years [...] often do you attend chur ch or mosque services? Never 07/31/2022 Do you belong to any clubs o r organizations such as jain groups, unions, fraternal or athletic groups, or [...] place to sleep or slept in a care home (including now)? No 07/31/2022 Personal Safety Answer Date Recorded Have you ever been in or are you currently in a harmful physical or emotional relationship or is someone making you feel afraid or unsafe? 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1 05/15/2023 12:14 PM INFORMATION SECURITY ARCHITECT documented in this encounter Progress Notes * Abiodun Novak MD - 05/15/2023 12:00 PM CST Images from the original note were not included. [facility] [place] [address] [address] Cardiology Lakhwinder Chaudhry, MD Donavan Davila, MD Ray Marmolejo, MD Abiodun Novak, MD Dmitry Das, MD Cuong Guzman, MD Clarence Wilkes, MD Linwood Meza, MD Rehana Thompson, DO Pedro Luis Mccormack, MD Rui Villegas, MD Andreas Wheeler, MD Damir Dowling, ELECTROMAGNET CRANE OPERATOR Jannie Montano, ELECTROMAGNET CRANE OPERATOR Jeanine Palacios, ELECTROMAGNET CRANE OPERATOR Patient Name: Lloyd Redman Provider: Abiodun Novak M.D. : 1950 Date of Service: 05/15/2023 Referring: Kishore CHIEF COMPLAINT: Atrial Fibrillation HISTORY OF PRESENT ILLNESS: 72 y.o. male with a history of chronic atrial fibrillation, now with Watchman, hypertension, and hyperlipidemia. Most recent echo in August of last year showing well-seated Watchman device, he had normal LV function Essentially nonambulatory. No recent falls. He has not affirm any sense of inappropriate tachycardia. He has been normotensive PHYSICAL EXAM: BP 114/82 Pulse 85 Ht 180.3 cm (5' 11 ) Wt 81.6 kg (180 lb) SpO2 90% BMI 25.10 kg/m?? Body mass index is 25.1 kg/m??. General: Well appearing and in no distress Respiratory: Clear to ausculation bilaterally; no wheezing/rales/rhonchi; respirations non-labored,good effort and excursion Cardiovascular: Irregularly,normal PMI, normal S1 and S2. No S3 or S4. No murmers or rubs. Carotid upstrokes brisk bilaterally and without bruits Extremities: warm and well perfused with no cyanosis, clubbing, or edema Pulses: intact and symmetric Musculoskeletal: no obvious joint deformities, in wheelchair Psychiatric: normal mood and affect Neurologic: awake/alert, no focal deficits ASSESSMENT & PLAN: Diagnoses and all orders for this visit: Chronic atrial fibrillation (HCC) (Primary) Comments: Rates controlled, Watchman in place Essential hypertension Comments: The patient has adequately controlled blood pressure on current prescription medication therapy, continue. Continue appropriate low-salt diet Abiodun Novak M.D., [facility] RMATION SECURITY ARCHITECT documented in this encounter Miscellaneous Notes * Addendum Note - Jammie Colon MA - 05/15/2023 12:00 PM CSTAddended by: JAMMIE COLON on: 05/15/2023 12:39 PM Modules accepted: Orders RMATION SECURITY ARCHITECT documented in this encounter Plan of Treatment Not on file documented as of this encounter Procedures Procedure Name Priority Date/Time Associated Diagnosis Comments POCT LIPID PANEL Routine 05/15/2023 12:3 8 PM INFORMATION SECURITY ARCHITECT Hypercholesterolemia documented in this encounter Results * POCT lipid panel (05/15/2023 12:38 PM INFORMATION SECURITY ARCHITECT) Cholesterol, POC 108 l - h mg/dL HDL, POC 34 l - h mg/dL Triglycerides, POC 116 l - h mg/dL LDL Cholesterol POC 51 l - h mg/dL Chol/HDL Ratio, POC 3.2 l - h Non-HDL Cholesterol, POC 75 l - h mg/dL Cholesterol Total, POC 108 l - h mg/dL Capillary blood 05/15/2023 1 2:38 PM INFORMATION SECURITY ARCHITECT Abiodun Novak MD POINT OF CARE TEST ORDERA BLES Final Result documented in this encounter Visit Diagnoses Diagnosis Chronic atrial fibrillation (HCC)- Primary Atrial fibrillation Essential hypertension Unspecified essential hypertension Hypercholesterolemia Pure hypercholesterolemia documented in this encounter Additional Health Concerns Infection Onset Date Last Indicated Resolved Time MDR gram neg/ESBL Comment:06/16/2021 IP Review - Pt with scrotal abscess, but is not actively draining (last documented draining on 06/14). Pt remains intubated so requires trach aspirate for isolation discontinuation. Provider notified. Amanda Walker RN 12/19/2019 12/19/2019 documented as of this encounter Care Teams Shredder Tender Relationship Specialty Start Date End Date Carey Dorsey NP [address] [place] [address] PCP - General Family Medicine 05/15/23 Jean-Claude Crawford MD [address] [place] [address] Family Medicine 04/12/20 Jessie Delvalle MD [address] [place] [address] Orthopedic Surgery 07/07/21 Sandip Barone MD [address] [address] Consulting Physician Neurosurgery 07/07/21 documented as of this encounter
--- OUTSIDE RECORDS SUMMARY | 2024-04-08 10:32 | XMS_ITS | Encounter Summary ---
Author Organization [facility] Healthcare Address [address] [place] [address] Care Team Providers Care Welding Process Specialist Name Role Phone Jean-Claude Crawford MD Unavailable Jessie Delvalle MD Unavailable + Sandip Barone MD Unavailable [phone] Abiodun Novak MD Primary Care Provider [phone] Reason for Referral * Cardiology (Routine) - Closed Specialty Diagnoses / Procedures Referred By Lei strong Referred To Contact Diagnoses Atrial fibrillation, unspecified type (HCC) Procedures Transesophageal Echo (JOSÉ MANUEL) W Doppler/CF TRANSESOPHAGEAL ECHO (JOSÉ MANUEL) W DOPPLER/CF TRANSESOPHAGEAL ECHO (JOSÉ MANUEL) W DOPPLER/CF WO CONTRAST TRANSESOPHAGEAL ECHOCARDIOGRAM (JOSÉ MANUEL) COMPLETE W/ CONTRAST TRANSESOPHAGEAL ECHO (JOSÉ MANUEL) W DOPPLER/CF W CONTRAST TRANSESOPHAGEAL ECHO (JOSÉ MANUEL) W LTD DOPPLER/CF WO CONTRAST TRANSESOPHAGEAL ECHOCARDIOGRAM (JOSÉ MANUEL) COMPLETE W/ COLOR TRANSESOPHAGEAL ECHO (JOSÉ MANUEL) WO DOPPLER/CF W CONTRAST Pedro Luis Mccormack MD [address] [place] [address] Phone: tel: fax: [facility] [address] [place] [address] Referral ID Status Reason Start Date Expiration Date Visits Re quested Visits Authorized [id number] Closed 08/27/2022 11/24/2022 1 1 Reason for Visit * Cardiology (Routine) - Closed Specialty Diagnoses / Procedures Referred By Lei strong Referred To Contact Diagnoses Atrial fibrillation, unspecified type (HCC) Procedures Transesophageal Echo (JOSÉ MANUEL) W Doppler/CF TRANSESOPHAGEAL ECHO (JOSÉ MANUEL) W DOPPLER/CF TRANSESOPHAGEAL ECHO (JOSÉ MANUEL) W DOPPLER/CF WO CONTRAST TRANSESOPHAGEAL ECHOCARDIOGRAM (JOSÉ MANUEL) COMPLETE W/ CONTRAST TRANSESOPHAGEAL ECHO (JOSÉ MANUEL) W DOPPLER/CF W CONTRAST TRANSESOPHAGEAL ECHO (JOSÉ MANUEL) W LTD DOPPLER/CF WO CONTRAST TRANSESOPHAGEAL ECHOCARDIOGRAM (JOSÉ MANUEL) COMPLETE W/ COLOR TRANSESOPHAGEAL ECHO (JOSÉ MANUEL) WO DOPPLER/CF W CONTRAST Pedro Luis Mccormack MD [address] [facility] [address] [place] [address] Phone: tel: fax: [place] [phone] [place] [address] Referral ID Status Reason Start Date Expiration Date Visits Re quested Visits Authorized [id number] Closed 08/27/2022 11/24/2022 1 1 Encounter Details Date Type Department Care Team (Latest Contact Info) Description 08/29/2022 8:55 AM CDT - 08/29/2022 11:59 PM CDT Hospital Encounter [facility] [address] [place] [address] Atrial fibrillation, unspecified type (HCC) Discharge Disposition: Discharge to home or self [...] Never 07/31/2022 How often do you attend [facility] or scientologist services? Never 07/31/2022 Do you belong to any clubs o r organizations such as hindu groups, unions, fraternal or athletic groups, or [...] to sleep or slept in a senior living (including now)? No 07/31/2022 Personal Safety Answer Date Recorded Have you ever been in or are you currently in a harmful physical or emotional relationship or is someone making you feel afraid or unsafe? 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 Gender Identity Not on file Sexual Orientation Not on file documented as of this encounter Last Filed Vital Signs Vital Sign Reading Time Taken Comments Blood Pressure 108/69 08/29/2022 10:02 AM CDT Pulse 76 08/29/2022 10:02 AM CDT Temperature 36.1 ??C (97 ??F) 08/29/2022 10:02 AM CDT Respiratory Rate 19 08/29/2022 10:02 AM CDT Oxygen Saturation 100% 08/29/2022 10:02 AM CDT Inhaled Oxygen Concentration - - Weight - - Height - - Body Mass Index - - documented in this encounter Discharge Instructions * Discharge Instructions* Taryn Canales RN - 08/29/2022 10:11 AM CDT Cardiac Laboratory [address] [place] [address] [facility] Discharge Instructions---Transesophageal Echocardiography (JOSÉ MANUEL) MEDICATIONS [] Home Medications Returned [] Discharge Medication Reconciliation Reviewed [] Prescriptions sent home with patient and instructions given for usage [x] ANTIBIOTICS What you Should Know Information provided and reviewed. DIET [x] DO NOT eat or drink for the next 2 hours post procedure. After 2 hours, resume normal diet. [x] Start with soft foods, such as oatmeal, yogurt, or applesauce. Once you can eat soft foods easily, you may begin to eat solid foods. ACTIVITY You have been given medications which helped make you comfortable during your procedure. The relaxing effects of these medications may continue for the rest of the day. For your safety: [x] Do not drive or operate hazardous machinery for the next 24 hours [x] Do not make important personal or business decision or sign legal documentation for the next 24hours [x] Limit your activity for the next 24 hours SPECIAL INSTRUCTIONS [x] Lie down if you feel lightheaded [x] If you develop difficulty swallowing, throwing-up blood, severe throat pain, or shortness of breath call Dr. Rayshawn Johnson Or call the emergency room at [x] Use a regular throat lozenge for minor sore throat. Call the above physician if severe throat pain occurs. [x] No alcohol consumption for the next 24 hours. FOLLOW UP CARE [] Call physician's office for appointment [] Appointment scheduled for: with . Additional Instructions: I understand and have received a copy of my discharge instructions Patient/Family Signature: Staff Signature/Title: Date and Time: documented in this encounter Medications at Time of Discharge [...] tablet (1 mg total) by mouth daily L. acidophilus/L. bifidus (LACTOBACILLUS ACIDOPH-L. BIFID ORAL) Take by mouth losartan (COZAAR) 100 mg tablet 08/15/2022 metoprolol (LOPRESSOR) 100 mg tabletIndications :Atrial fibrillation, unspecified type (HCC) Take 1 tablet (100 mg total) by mouth 2 (two) times a day 180 tablet 3 08/03/2022 omeprazole (PriLOSEC) 20 mg capsule Take 1 capsule (20 mg total) by mouth daily ramelteon (ROZEREM) 8 mg tabletIndications :Sleep-Onset Insomnia Take 1 tablet (8 mg total) by mouth nightly 30 tablet 11 07/07/2021 senna (SENOKOT) 8.6 mg tablet Take 1 tablet by mouth 2 (two) times a day terazosin (HYTRIN) 10 mg capsule Take 1 capsule (10 mg total) by mouth daily clopidogreL (PLAVIX) 75 mg tablet clopidogrel 75 mg tablet 3 documented as of this encounter Discharge Disposition Disposition Code Departure Means Destination Discharge to home or self care documented in this encounter Plan of Treatment Not on file documented as of this encounter Procedures Procedure Name Priority Date/Time Associated Diagnosis Comments TRANSESOPHAGEAL ECHO (JOSÉ MANUEL) W DOPPLER/CF WO CONTRAST Routine 08/29/2022 10:13 AM CDT Atrial fibrillation, unspecified type (HCC) documented in this encounter Results * TRANSESOPHAGEAL ECHO (JOSÉ MANUEL) W DOPPLER/CF WO CONTRAST (08/29/2022 10:13 AM CDT) Anatomical Region Laterality Modality Echocardiography 08/29/2022 9:41 AM CDT Narrative 08/29/2022 12:06 PM CDT [facility] [address] [place] [address] TRANSESOPHAGEAL ECHOCARDIOGRAM Patient Name: JANIA GUAJARDO : 1950 Study Date: 08/29/2022 9:41:19 AM Gender: M Tech: FLORINA Location: [facility] Ref.Provider: PEDRO LUIS MCCORMACK Height(Cm): 168 BSA: 1.91 Weight(Kg): 81.65 BP: 118/82Order Provider: PEDRO LUIS MCCORMACK - Procedures: Transesophageal Echo Report: Transesophageal echocardiogram including 2D imaging, spectral doppler and color doppler was performed in the cardiac catheterization laboratory. The procedure was monitored with automatic blood pressure monitoring, ECG tracings, and pulse oximetry. Sedation was achieved by anesthesia using Propofol IV. The transesophageal probe was placed in the esophagus posterior to the heart without any complications. The patient tolerated the procedure well. Indications: Atrial fibrillation, and Post-procedural. Findings: BP: Blood pressure: 118/82 mmHg. Left Ventricle: Grossly normal left ventricular systolic function based on limited views. Inadequate for detailed regional wall motion assessment. Ejection Fraction is estimated at 65 %. Right Ventricle: Normal right ventricular size. Normal right ventricular systolic function. Left Atrium: There is mild enlargement of the left atrium. Saline contrast study negative for R to L shunt. LA Appendage: There is a left atrial appendage occlusion device in-situ. It appears well- seated. There is no thrombus on the external surface of the device. There is a color Doppler flow around the device; vena contracta approximately 3 mm. Right Atrium: There is mild enlargement of the right atrium. Atrial Septum: Normal atrial septum. Mitral Valve: Trace mitral valve regurgitation. Moderate mitral annular calcification. There is no evidence for significant mitral stenosis. Aortic Valve: Trileaflet aortic valve. There is no aortic regurgitation. No aortic stenosis. Tricuspid Valve: Grossly normal appearing tricuspid valve. No evidence of tricuspid regurgitation. Pulmonic Valve: Pulmonic valve not well visualized. No pulmonic stenosis. No evidence of pulmonic regurgitation. Pericardium: No pericardial effusion. Aorta: Borderline mild aortic root dilatation. Normal size descending thoracic aorta. Ascending aorta is normal in size. Pulmonary Artery: Not well visualized. Conclusions: 1. Grossly normal left ventricular systolic [...] atrial appendage occlusion device in-situ. It appears well- seated. There is no thrombus on the external surface of the device. There is a color Doppler flow around the device; vena contracta approximately 3 mm. Electronically Signed By: Donavan Davila MD 2022-08-29 12:06:27 CDT CC: CC: Procedure Note Donavan aDvila MD - 08/29/2022 [facility] [address] [place] [address] TRANSESOPHAGEAL ECHOCARDIOGRAM Patient Name: JANIA GUAJARDOPatient ID: [id number] : [id number] Date: 08/29/2022 9:41:19 AM Gender: MAccession #: [id number] Tech: MJLocation: [facility] Ref.Provider: PEDRO LUIS MCCORMACKHeight(Cm): 168 BSA: 1.91Weight(Kg): 81.65 BP: 118/82Order Provider: PEDRO LUIS MCCORMACK - Procedures: Transesophageal Echo Report: Transesophageal echocardiogram including 2D imaging, spectral doppler andcolor doppler was performed in the cardiac catheterization laboratory. The procedure wasmonitored with automatic blood pressure monitoring, ECG tracings, and pulse oximetry.Sedation was achieved by anesthesia using Propofol IV. The transesophageal probe wasplaced in the esophagus posterior to the heart without any complications. The patienttolerated the procedure well. Indications: Atrial fibrillation, and Post-procedural. Findings: BP: Blood pressure: 118/82 mmHg. Left Ventricle: Grossly normal left ventricular systolic function based on limited views.Inadequate for detailed regional wall motion assessment. Ejection Fraction is estimatedat 65 %. Right Ventricle: Normal right ventricular size. Normal right ventricular systolicfunction. Left Atrium: There is mild enlargement of the left atrium. Saline contrast studynegative for R to L shunt. LA Appendage: There is a left atrial appendage occlusion device in-situ. It appearswell- seated. There is no thrombus on the external surface of the device. There is a colorDoppler flow around the device; vena contracta approximately 3 mm. Right Atrium: There is mild enlargement of the right atrium. Atrial Septum: Normal atrial septum. Mitral Valve: Trace mitral valve regurgitation. Moderate mitral annular calcification.There is no evidence for significant mitral stenosis. Aortic Valve: Trileaflet aortic valve. There is no aortic regurgitation. No aorticstenosis. Tricuspid Valve: Grossly normal appearing tricuspid valve. No evidence of tricuspidregurgitation. Pulmonic Valve: Pulmonic valve not well visualized. No pulmonic stenosis. No evidence ofpulmonic regurgitation. Pericardium: No pericardial effusion. Aorta: Borderline mild aortic root dilatation. Normal size descending thoracicaorta. Ascending aorta is normal in size. Pulmonary Artery: Not well visualized. Conclusions: 1. Grossly normal left ventricular systolic function based on limitedviews. Inadequate for detailed regional wall motion assessment. Ejection Fraction isestimated at 65 %. 2. Normal right ventricular size. Normal right ventricular systolicfunction. 3. Borderline mild aortic root dilatation. Normal size descending thoracicaorta. Ascending aorta is normal in size. 4. There is a left atrial appendage occlusion device in-situ. It appearswell- seated. There is no thrombus on the external surface of the device. There is acolor Doppler flow around the device; vena contracta approximately 3 mm. Electronically Signed By: Donavan Davila MD 2022-08-29 12:06:27 CDT CC: CC: us Pedro Luis Mccormack MD CV ECHO PROCEDURES Final Result documented in this encounter Visit Diagnoses Diagnosis Atrial fibrillation, unspecified type (HCC) documented in this encounter Discontinued Medications Medication Sig Discontinue Reason Start Date End Da te amLODIPine (NORVASC) 10 mg tablet 08/15/2022 08/29/2022 cholecalciferol (VITAMIN D-3) 5,000 unit capsule 08/15/2022 08/30/19 23 losartan (COZAAR) 50 mg tablet Take 2 tablets (100 mg total) by mouth daily 08/03/2022 08/29/2022 documented as of this encounter Historical Medications * This list may reflect changes made after this encounter. Medication Sig Dispense Quantity Refills Last Filled Start D ate End Date losartan (COZAAR) 100 mg tablet 08/15/2022 cholecalciferol (VITAMIN D-3) 5,000 unit capsule 08/15/2022 08/29/2022 amLODIPine (NORVASC) 10 mg tablet 08/15/2022 08/29/2022 added in this encounter Orders Discharge Count Last Ordered Date First Orde red Date DISCHARGE PATIENT 1 08/29/2022 documented in this encounter Additional Health Concerns Infection Onset Date Last Indicated Resolved Time MDR gram neg/ESBL Comment:06/16/2021 IP Review - Pt with scrotal abscess, but is not actively draining (last documented draining on 06/14). Pt remains intubated so requires trach aspirate for isolation discontinuation. Provider notified. Amanda Walker RN 12/19/2019 12/19/2019 documented as of this encounter Care Teams Welding Process Specialist Relationship Specialty Start Date End Date Abiodun Novak MD [address] [facility] [[email or web address] [address] [place] [address] PCP - General Cardiology 06/13/22 05/09/23 Jean-Claude Crawford MD [address] [facility] [address] [place] [address] Family Medicine 04/12/20 Jessie Delvalle MD [address] [facility] [address] [place] [address] Orthopedic Surgery 07/07/21 [place] [address] [place] [address] [address] [place] [address] Consulting Physician Neurosurgery 07/07/21 documented as of this encounter
--- OUTSIDE RECORDS SUMMARY | 2024-04-08 10:32 | XMS_ITS | Encounter Summary ---
Author Organization [facility] Address [address] [place] [address] Care Team Providers Care Behavior Interventionist Name Role Phone Jean-Claude Crawford MD Unavailable [phone] Jessie Delvalle MD Unavailable + Sandip Barone MD Unavailable [phone] Abiodun Novak MD Primary Care Provider [phone] Reason for Visit * Reason Comments Follow-up Encounter Details Date Type Department Care Team (Late st Contact Info) Description 10/16/2022 11:15 AM CDT Office Visit [facility] Orthopedics and Sports Medicine [address] [facility] [address] [place] [address] Byron Torres NP [address] [facility] [address] [place] [address] Right shoulder pain, unspecified chronicity (Primary Dx) Social History Tobacco Use Types Packs/Day Years [...] often do you attend chur ch or congregational services? Never 07/31/2022 Do you belong to any clubs o r organizations such as faith groups, unions, fraternal or athletic groups, or [...] place to sleep or slept in a skilled nursing (including now)? No 07/31/2022 Personal Safety Answer Date Recorded Have you ever been in or are you currently in a harmful physical or emotional relationship or is someone making you feel afraid or unsafe? 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 Post-Op Visit Note HPI: Patient is here for 8 week follow up on proximal humerus fracture injury occurred 07/30/22. Pain is well controlled. He feels he is doing well, so does his caregiver present with him today. He denies any pain and has been using the arm freely. Vital signs: BP 123/81 Pulse 80 Ht 180.3 cm (5' 11 ) BMI 25.10 kg/m?? Exam: Skin is intact. No swelling at fracture site. No tenderness to palpation over fracture site. No active erythema, draining, or signs of infection present. Neurovascular status is intact. AROM: FF 140, abd 120 XR Shoulder Right 2 or More Views Comminuted impacted proximal humerus fracture is again viewed. Significant healing noted with increased callus and increased opacity of fracture line. Assessment: Diagnosis Plan 1. Right shoulder pain, unspecified chronicity XR Shoulder Right 2 or More Views Plan: Reviewed XR with patient Activity precautions reviewed. Initiate PT Follow up as needed Questions were answered. Patient expressed full understanding and agreement of plan. documented in this encounter Miscellaneous Notes * Addendum Note - Dede De Oliveira MA - 10/16/2022 11:15 AM CDTAddended by: DEDE DE OLIVEIRA on: 10/16/2022 01:27 PM Modules accepted: Orders documented in this encounter Plan of Treatment Not on file documented as of this encounter Procedures Procedure Name Priority Date/Time Associated Diagnosis Comments XR SHOULDER RIGHT 2 OR MORE VIEWS Routine 10/16/2022 11:30 AM CDT Right shoulder pain, unspecified chronicity documented in this encounter Results * XR Shoulder Right 2 or More Views (10/16/2022 11:30 AM CDT) Anatomical Region Laterality Modality Upper Extremities, Shoulder Right Digi demar Radiography Narrative 10/16/2022 12:41 PM CDT Comminuted impacted proximal humerus fracture is again viewed. Significant healing noted with increased callus and increased opacity of fracture line. [facility] COILER OPERATOR IMG XR PROCEDURES Final Result documented in this encounter Visit Diagnoses Diagnosis Right shoulder pain, unspecified chronicity- Primary documented in this encounter Additional Health Concerns Infection Onset Date Last Indicated Resolved Time MDR gram neg/ESBL Comment:06/16/2021 IP Review - Pt with scrotal abscess, but is not actively draining (last documented draining on 06/14). Pt remains intubated so requires trach aspirate for isolation discontinuation. Provider notified. Amanda Walker RN 12/19/2019 12/19/2019 documented as of this encounter Care Teams Behavior Interventionist Relationship Specialty Start Date End Date Abiodun Novak MD [address] [place] [address] PCP - General Cardiology 06/13/22 05/09/23 Jean-Claude Crawford MD [address] [place] [address] Family Medicine 04/12/20 Jessie Delvalle MD [address] [place] [address] [address] [place] [address] Orthopedic Surgery 07/07/21 Sandip Barone MD [address] [facility] [address] [place] [address] Consulting Physician Neurosurgery 07/07/21 documented as of this encounter
--- OUTSIDE RECORDS SUMMARY | 2024-04-08 10:32 | XMS_ITS | Encounter Summary ---
Author Organization [facility] Address [address] [place] [address] Care Team Providers Care Restaurant Service Manager Name Role Phone Jean-Claude Crawford MD Unavailable [phone] Jessie Delvalle MD Unavailable + Sandip Barone MD Unavailable [phone] Abiodun Novak MD Primary Care Provider [phone] Encounter Details Date Type Department Care Team (Late st Contact Info) Description 08/15/2022 Telephone [facility] Orthopedics and Sports Medicine [address] [facility] [address] [place] [address] Zaki Saunders MD [address] [place] [address] [address] [place] [address] Social History Tobacco Use Types Packs/Day Years [...] any clubs o r organizations such as anabaptism groups, unions, fraternal or athletic groups, or [...] place to sleep or slept in a [facility] (including now)? 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 Patient was consulted by ortho. (See notes) While making a 4 week follow up appt, [facility] rehab phone # [phone] informed me that patientfell again last night and they just received the xray report. This is scanned into media consultant, [facility] was thinking patient may need to be seen tomorrow.. Please advise. New xray information today 08/15 Proximal humeral fracture, mild lateral displacment of the distal fracture fragment is noted.There appears to be calius formation present. Please advise when/where to schedule or advise next steps documented in this encounter Plan of Treatment [...] documented as of this encounter Care Teams Restaurant Service Manager Relationship Specialty Start Date End Date Abiodun Novak MD [address] [place] [address] PCP - General Cardiology 06/13/22 05/09/23 Jean-Claude Crawford MD [address] [place] [address] Family Medicine 04/12/20 Jessie Delvalle MD [address] [address] Orthopedic Surgery 07/07/21 Sandip Barone MD [facility] [address] [address] Consulting Physician Neurosurgery 07/07/21 documented as of this encounter
--- OUTSIDE RECORDS SUMMARY | 2024-04-08 10:32 | XMS_ITS | Referral Summary ---
[facility] Organization 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) 07/17/2022 Sepsis due to COVID-19 ([facility]) 10/04/2021 Falls, subsequent encounter 09/25/2021 Assessment & [...] fall. Discussed with his charge nurse. The Auspherix and his at length. There has been [...] know the risk benefits. SAH (subarachnoid hemorrhage) ([facility]) 06/30/19 Assessment & Plan (08/04/2021 4:11 PM [...] as tolerated his incisions are well healed. [place] are out. He is doing well with [...] wounds have no more redness. At all. [place] are in place incision appears to be [...] dose. Assessment & Plan (06/15/2020 2:[address] [facility]): Rates rapid today however, states not rapid at home. Suspect need higher dose of beta-edmund, however, will assess further with Holter. Further recommendations forthcoming. Continue anticoagulation. Chronic systolic heart failure ([facility]) 021 Assessment & Plan (08/02/2021 12:36 PM [...] BRENNON Assessment & Plan (06/15/2020 2:[address] [facility]): Previously mild last assessed in July last year, likely tachycardia mediated but significant risk factors for CAD in no recent ischemic evaluation. I would favor pharmacologic stress SPECT. Seems to be tolerating current guideline medical therapy. Needs to have a follow-up BMP. Reassess LV function with echo. Further recommendations forthcoming. Cholecystitis 06/14/2020 Overview (06/14/2020): Added automatically from request for surgery [id number] DVT (deep venous thrombosis) ([facility]) 0 Intra-abdominal abscess ([facility]) 12/28/2019 Hypercholesterolemia 04/26/2010 Assessment & Plan (09/25/2021 [...] Hig h Dose, Preservative Free, Intrr 02/20/2020 Social History Tobacco Use Types Packs/Day Years [...] often do you attend chur ch or anglican services? Never 07/31/2022 Do you belong to any clubs o r organizations such as nondenominational groups, unions, fraternal or athletic groups, or [...] place to sleep or slept in a detention (including now)? No 07/31/2022 Personal Safety Answer Date Recorded Have you ever been in or are you currently in a harmful physical or emotional relationship or is someone making you feel afraid or unsafe? 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 Sex Male 9:[address] Gender Identity Not on file Sexual Orientation Not on file Last Filed Vital Signs Vital Sign Reading Time Taken Comments Blood Pressure 114/82 05/15/2023 12:[address] [facility] Pulse 85 05/15/2023 12:[address] Temperature 36.1 ??C (97 ??F) 08/29/2022 10:02 AM CDT Respiratory Rate 19 08/29/2022 10:02 AM CDT Oxygen Saturation 90% 05/15/2023 12:[address] Inhaled Oxygen Concentration - - Weight 81.6 kg (180 lb) 05/15/2023 12:[address] Height 180.3 cm (5' 11 ) 05/15/2023 12:[address] [facility] Body Mass Index 25.1 05/15/2023 12:[address] Plan of Treatment Not on file Medical Devices Implanted Type Area Passenger Car Conductor Device Identifier Shelf Expiration Date Model / Serial / Lot Quinter Scientific [place] Watchman Flx Procedure Device Wmflxperproc - S0 - [id number] Implanted:Qty: 1 on 07/17/2022 by Pedro Luis Mccormack MD at [facility] Left Atrial Appendage Occluder N/A: Atrial Appendage Quinter Scientific [place]osa 04/24/2025 [id number] C / 0 / [id number] [employer]hew/Rich[employer]/O rtho [id number] n 44cm 13mm Left Intertrochanter 130d 1.5mm Nail - [id number] Implanted:Qty: 1 on 07/04/2021 by Jessie Delvalle MD at [facility] Left: Femur [employer] /Ortho 09/15/2030 [id number] / / [employer]Rich[employer]/O rtho Intertan 4.5mm 95mm 90mm Lag Compression Integrated Interlocking [id number] - [id number] Implanted:Qty: 1 on 07/04/2021 by Jessie Delvalle MD at [facility] Left: Femur [employer] /Ortho 05/14/2031 [id number] / / [employer]Rich[employer]/O rtho [id number] 5mm 52.5mm Low Profile Internal Hex Femur Screw Bone Trigen - [id number] Implanted:Qty: 1 on 07/04/2021 by Jessie Delvalle MD at [facility] Left: Femur [employer]Rich[employer] /Ortho [id number] / / [employer]Rich[employer]/O rtho [id number] Trigen 5mm 62.5mm Low Profile Femur Screw Bone - [id number] Implanted:Qty: 1 on 07/04/2021 by Jessie Delvalle MD at [facility] Left: Femur [employer] /Ortho [id number] / / [employer]/O rtho Intertan 11.5mm 20cm Trochanteric 125d Nail Intramedullary [id number] - [id number] Implanted:Qty: 1 on 10/08/2021 by Miguel Flores MD at [facility] Right: Femur [employer] /Ortho [id number] 09/21/2030 [id number] / / [id number] [employer]/O rtho Intertan 11mm 90mm Lag Subtrochanter Screw Bone Titanium [id number] - [id number] Implanted:Qty: 1 on 10/08/2021 by Miguel Flores MD at [facility] Right: Femur [employer] /Ortho [id number] 04/21/2030 [id number] / / [id number] Sand[employer] V[employer] Device Clsr Perclose Prostyle Sut-Mediatd Closure-Repair Sys 15125-76 - S0 - [id number] Implanted:Qty: 1 on 07/17/2022 by Pedro Luis Mccormack MD at [facility] [employer] 04/07/2024 [id number] / 0 / [id number] [employer] Device Clsr Perclose Prostyle Sut-Mediatd Closure-Repair Sys 20276-44 - S0 - [id number] Implanted:Qty: 1 on 07/17/2022 by Pedro Luis Mccormack MD at [facility] [employer] 04/07/2024 [id number] / 0 / [id number] Procedures Procedure Name Priority Date/Time Associated Diagnosis Comments HEPATITIS PANEL, ACUTE Routine 06/12/2021 4:[address] ABDOMEN PELVIS W CONTRAST Schedule Routine, Read Routine (OP Routine) 06/13/2020 12:[address] Cholecystitis from Last 3 Months or Most Recently Relevant to Health Maintenance Results * Hepatitis panel, acute (06/12/2021 4:[address] [facility]) Hep A IgM Nonreactive Nonreactive [facility] Comment: Interpretive Data: If Hep A IgM Ab is reported as Equivocal, a new sample should be drawn in two weeks for testing. Current interpretive data was last revised on 19. Hep B core IgM Nonreactive Nonreactive [facility] Comment: Interpretive Data If HepB Core IgM Ab is reported as Equivocal, a new sample should be drawn in two weeks for testing. Current interpretive data was last revised on 19. Hep C Ab Nonreactive Nonreactive [facility] Comment:Antibodies to HCV no t detected. Does NOT exclude the possibility of recent exposure to HCV. HepBsAg Nonreactive Nonreactive [facility] Blood 06/12/2021 4:[address] [facility] 06/12/2021 4:[address] us Romy Trent NP LAB MICROBIOLOGY - GENER AL ORDERABLES Edited Result - Final [facility] Department [place] [address] * CT Abdomen Pelvis W Contrast (06/13/2020 12:[address]) Anatomical Region Laterality Modality Body N/A Computed Tomogra phy 06/13/2020 12:[address] [facility] Addenda Addendum by Stepan Scott MD on 07/26/2020 3:48 PM CDT ADDENDUM: To correct the title and technique of this exam, the exam performed was a CT of the abdomen and pelvis with intravenous contrast. ??The chest was not scanned. Electronically signed by: Stepan Scott M.D. Impressions 06/13/2020 12:[address] 1. Interval decrease in size of an abscess extending from the gallbladder fossa the anterior abdominal wall. 2. Extensive colonic diverticulosis. Mild thickening of the right hemicolon may be related to chronic diverticulitis. 3. Small pleural and pericardial effusions. Electronically signed by: Stepan Scott M.D. Narrative 06/13/2020 12:[address] EXAMINATION: ??Computed tomography of the chest, abdomen [...] pleural and pericardial effusions. Electronically signed by: tSepan Scott M.D. 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 ADVANCE DIRECTIVE 07/29/2022 11:00 PM Artemio r of [employer] ADVANCE DIRECTIVE 07/10/2021 11:03 AM POWER OF [employer]ANT-MEDICAL ADVANCE DIRECTIVE 06/21/2021 6:25 PM POA ADVANCE [...] Agents on File Name Relationship Healthcare Agent Relationshi p Communication Raine Sale Med POA Health Care Agent Care Teams Rougher Helper Relationship Specialty [place] [address] [place] [address] [place] [address] PCP - General Family Medicine 05/15/23 Jean-Claude Crawford MD [address] [place] [address] Family Medicine 04/12/20 Jessie Delvalle MD [address] [place] [address] Orthopedic Surgery 07/07/21 Sandip Barone MD [address] [address] Consulting Physician Neurosurgery 07/07/21
--- OUTSIDE RECORDS SUMMARY | 2024-04-08 10:32 | XMS_ITS | Encounter Summary ---
Author Organization [facility] Address [address] [facility] [facility] [address] [place] [address] Care Team Providers Care Elementary Librarian Name Role Phone Jean-Claude Crawford MD Unavailable [phone] Jessie Delvalle MD Unavailable + Sandip Barone MD Unavailable [phone] Abiodun Novak MD Primary Care Provider [phone] Encounter Details Date Type Department Care Team (Latest Contact Info) Description 10/16/2022 7:44 AM CDT - 10/16/2022 11:59 PM CDT Hospital Encounter [facility] Orthopedics and Sports Medicine [address] [facility] [address], [place] [address] Discharge Disposition: Discharge to home [...] Never 07/31/2022 How often do you attend [facility] or yazdanism services? 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 Byron Torres TICKET PULLER IMG XR PROCEDURES Final Result documented in this encounter Visit Diagnoses Not on filedocumented in this encounter Additional Health Concerns Infection Onset Date Last Indicated Resolved Time MDR gram neg/ESBL Comment:06/16/2021 IP Review - Pt with scrotal abscess, but is not actively draining (last documented draining on 06/14). Pt remains intubated so requires trach aspirate for isolation discontinuation. Provider notified. Amanda Wakler RN 12/19/2019 12/19/2019 documented as of this encounter Care Teams Elementary Librarian Relationship Specialty Start Date End Date Abiodun Novak MD [address] [place] [address] PCP - General Cardiology 06/13/22 05/09/23 Jean-Claude Crawford MD [address] [place] [address] Family Medicine 04/12/20 Jessie Delvalle MD [address] [place] [address] [address] [place] [address] Orthopedic Surgery 07/07/21 Sandip Barone MD [address] [address] Consulting Physician Neurosurgery 07/07/21 documented as of this encounter
--- OUTSIDE RECORDS SUMMARY | 2024-04-08 10:32 | XMS_ITS | Encounter Summary ---
Author Organization [facility] Healthcare Address [address] [place] [address] Care Team Providers Care Business Process Architect Name Role Phone Jean-Claude Crawford MD Unavailable [phone] Jessie Delvalle MD Unavailable + Sandip Barone MD Unavailable [phone] Abiodun oNvak MD Primary Care Provider [phone] Encounter Details Date Type Department Care Team (Late st Contact Info) Description 08/29/2022 9:45 AM CDT Anesthesia Event [facility] [address] [place] [address] [phone] Cori Smith MD [address] [place] [id number] Anesthesia Record Procedure Summary Procedure Name Responsible Anesthesiologist Anesthesia Start Time Anesthesia Stop Time TRANSESOPHAGEAL ECHO (JOSÉ MANUEL) W DOPPLER/CF Cori Smith MD 08/29/22 0945 08/29/22 1004 Events Date Time Event Comment 08/29/2022 0932 0945 An Start 0946 An Start Data 0947 Patient Positioned Laterally 0948 Bite Block Placed 0948 An Induction The patient was reevaluated immediately before moderate or deep sedation use and before anesthesia induction. 0950 Anesthesia Ready 1002 an stop data 1002 Handoff to RN I completed my handoff to the receiving nurse during which we: 1. Patient identified 2. Responsible provider identified 3. Pertinent medical history reviewed 4. Procedure type and surgical course discussed 5. Intraoperative anesthetic management and any significant issues discussed 6. Expectations and concerns for postop period discussed 7. Questions solicited from receiving nurse 8. Patient disposition at the time of handoff: PACU 1004 An Stop 1004 Release from care Meds Name Total lidocaine (cardiac) syringe 2 % 2 mL propofol 140 mg NS 0.9% 50 mL * Agents Name O2 * Blood No blood administrations on file. Lines, Drains, and Airways Type Details Placement Removal External Urinary Device 07/30/22; 1445; Male 07/30/22 1445 by Elidia Hector, GAURAV RETIRED Wound 06/27/21; 1425; MASD (Moisture associated skin damage); Perineum; , buttocks; 03/10/24 (Retired LDA, Removed/Completed by [employer] with LDA Utility); 121 (Retired LDA, Removed/Completed by [employer] with LDA Utility) 06/27/21 1425 by Ani Chavez RN 03/10/24 1213 by Discharge Provider, Automatic Peripheral IV Placement Date: 08/29/22; Placement Time: 925; Catheter Size: 20 G; Orientation: Left, Posterior; Location: Hand; Site Prep: Chlorhexidine; Inserted by: GAURAV TORREZ; Insertion Attempts: 1; Removal Date: 08/29/22; Removal Time: 1104 08/29/22 0926 by Taryn Canales RN 08/29/22 1104 by Glenis Carlisle RN documented in this encounter Social History Tobacco Use Types Packs/Day [...] Never 07/31/2022 How often do you attend [facility] or caodaism services? 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 Gender Identity Not on file Sexual Orientation Not on file documented as of this encounter OR Notes * Anesthesia Postprocedure Evaluation - Sumanth Land CRNA - 08/29/2022 10:04 AM CDT Patient: Lloyd Redman Procedure Summary Date: 08/29/22 Room / Location: [facility] Anesthesia Start: 944 Anesthesia Stop: 1003 Procedure: TRANSESOPHAGEAL ECHO (JOSÉ MANUEL) W DOPPLER/CF Diagnosis: Atrial fibrillation, unspecified type(HCC) Scheduled Providers: Cori Smith MD Responsible Provider: Cori Smith MD Anesthesia Type: general/TIVA ASA Status: 3 Anesthesia Type: general/TIVA Last vitals BP 108/69 Pulse 76 Temp 36.1 ??C (97 ??F) Resp 19 SpO2 100% Anesthesia Post Evaluation Patient location during evaluation: PACU Patient participation: complete - patient participated Level of consciousness: follows simple commands and fully awake Pain management: adequate Airway patency: adequate Cardiovascular status: acceptable and hemodynamically stable Respiratory status: acceptable Hydration status: acceptable Pt is: normothermic Nausea/Vomiting status: none No notable events documented. * Anesthesia Preprocedure Evaluation - Cori Smith MD - 08/29/2022 9:32 AM CDT Images from the original note were not included. Anesthesia Evaluation Lloyd Redman is a 72 y.o. male * No procedures listed * * No Diagnosis Codes entered * HISTORY Past Medical History Information obtained from: patient and chart. Neurological + TIA + Dementia/mild cognitive impairment - dementia. Cardiovascular + Hypertension + CHF LVEF: >70%. + Atrial fibrillation/flutter - + DVT/PE Comments: TTE (06/2021): SUMMARY: LA is mildly dilated. Normal RV cavity size and function. LV cavity size is normal. Concentric LV remodeling with normal EF=70-75%. Normal Inferior vena cava. Dilated JOSE RAFAEL=4.7 cm and ascending aorta=3.9 cm. No previous study. Stress (08/2020): Conclusions: 1. Left ventricular ejection fraction is 38 %. There is moderate LV dysfunction. 2. Myocardial perfusion imaging is normal. Heart rate increase is not required for adequate pharmacologic vasodilator stress. Conclusions: Mild concentric left ventricular hypertrophy. Normal left ventricular size. Normal global left ventricular systolic function. Normal left ventricular diastolic function. Ejection fraction is visually estimated at 70 %. Normal right ventricular size. Normal right ventricular systolic function. There is mild enlargement of left atrium. The right atrium is normal in size. Electronically Signed By: Stanford Norton 07/30/22 Respiratory + COPD Comments: CXR (10/04/2021): IMPRESSION: 1. No sign of pneumonia detected. 2. Mild cardiomegaly without signs of acute CHF or pulmonary edema. 3. No sign of a pleural effusion or pneumothorax. 4. Atherosclerotic change of aorta. Hepatic / Heme + History of anemia Gastrointestinal + GERD - on daily therapy. Musculoskeletal/Pain Comments: Broken right shoulder, followed by ortho Review of Systems Pertinent negatives: productive cough; wheezing; SOB; fever; chest pain; heartburn; dentures/partials and chipped/loose teeth Patient Active Problem List Diagnosis ??? Hypercholesterolemia ??? Hypertension ??? Heartburn ??? Intra-abdominal abscess (CMS/HCC) (HCC) ??? DVT (deep venous thrombosis) (CMS/HCC) (HCC) ??? Cholecystitis ??? Atrial fibrillation (CMS/HCC) (HCC) ??? Chronic systolic heart failure (CMS/HCC) (HCC) ??? TBI (traumatic brain injury) (HCC) ??? SAH (subarachnoid hemorrhage) (CMS/HCC) (HCC) ??? Encephalopathy ??? Acute delirium ??? Scrotal abscess ??? Closed nondisplaced intertrochanteric fracture of left femur (CMS/HCC) (HCC) ??? Dysphagia ??? Orthostatic hypotension ??? Acute respiratory failure (HCC) ??? Acute on chronic anemia ??? Thrombocytopenia (HCC) ??? COPD (chronic obstructive pulmonary disease) (HCC) ??? Benign prostatic hyperplasia with lower urinary tract symptoms ??? Dementia (HCC) ??? Borderline hyperglycemia ??? Falls, subsequent encounter ??? Sepsis due to COVID-19 (CMS/HCC) (HCC) ??? Septic shock (CMS/HCC) (HCC) ??? A-fib (CMS/HCC) (HCC) ??? Frequent falls ??? Closed 3-part fracture of proximal humerus, right, initial encounter Past Medical History: Diagnosis Date ??? Acute cholecystitis ??? Alcohol use ??? Anxiety ??? Atrial fibrillation (CMS/HCC) (HCC) ??? Blind legally blind ??? BPH (benign prostatic hyperplasia) ??? BPH (benign prostatic hyperplasia) ??? CHF (congestive heart failure) (CMS/HCC) (HCC) ??? CHF (congestive heart failure) (CMS/HCC) (HCC) ??? Cholecystitis ??? Chronic anemia ??? COPD (chronic obstructive pulmonary disease) (HCC) ??? GERD (gastroesophageal reflux disease) ??? 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 HTN (hypertension) ??? Hyperlipidemia ??? Hypertension ??? TIA (transient ischemic attack) ??? Vitamin D deficiency Past Surgical History: Procedure Laterality Date ??? ABSCESS CATHETER INJECTION N/A 12/25/2019 ??? ABSCESS CATHETER INJECTION N/A 01/04/2020 ??? ABSCESS CATHETER INJECTION N/A 01/15/2020 ??? CATARACT EXTRACTION, BILATERAL ??? CHOLECYSTECTOMY ??? CIRCUMCISION ??? FLUID DRAIN SOFT TISSUE N/A 12/19/2019 ??? IR CHOLANGIOGRAM THROUGH EXISTING CATHETER N/A 02/04/2020 ??? VASECTOMY Allergies Allergen Reactions ??? Penicillins Hives and Rash Taking? Last Dose Start Date End Date Provider acetaminophen (TYLENOL) 325 mg tablet 08/28/2022 07/07/21 -- Julieta Tirado NP Take 2 tablets (650 mg total) by mouth every 4 (four) hours as needed for pain albuterol 2.5 mg /3 mL (0.083 %) nebulizer solution 08/28/2022 -- -- ProviderManish MD amLODIPine (NORVASC) 5 mg tablet 08/28/2022 10/28/21 10/28/22 Max Cunningham MD Take 1 tablet (5 mg total) by mouth daily aspirin 81 mg enteric coated tablet 08/28/2022 -- -- Provider, MD Manish atorvastatin (LIPITOR) 10 mg tablet 08/28/2022 -- -- ProviderManish MD calcium carbonate (OS-KARL) 1,500 mg (600 mg elemental) tablet 08/28/2022 -- -- Provider, MD Manish cholecalciferol (VITAMIN D-3) 5,000 unit tablet 08/28/2022 -- -- Provider, MD Manish clopidogreL (PLAVIX) 75 mg tablet 08/28/2022 -- -- Provider, MD Manish divalproex (DEPAKOTE) 250 mg EC tablet 08/28/2022 -- -- Provider, MD Manish fluticasone propion-salmeteroL (ADVAIR DISKUS) 100-50 mcg/dose diskus inhaler 08/28/2022 -- -- Provider, MD Manish folic acid (FOLVITE) 1 mg tablet 08/28/2022 -- -- Provider, MD Manish losartan (COZAAR) 100 mg tablet 08/28/2022 08/15/22 -- Provider, MD Manish metoprolol (LOPRESSOR) 100 mg tablet 08/28/2022 08/03/22 08/03/23 Janice Corea MD Take 1 tablet (100 mg total) by mouth 2 (two) times a day Notes: [place] Location: [facility] (Esther Nathan pantoprazole (PROTONIX) 40 mg EC tablet 08/28/2022 -- -- Provider, MD Manish ramelteon (ROZEREM) 8 mg tablet 08/28/2022 07/07/21 08/29/22 Julieta Tirado NP Take 1 tablet (8 mg total) by mouth nightly senna (SENOKOT) 8.6 mg tablet 08/28/2022 -- -- Provider, MD Manish terazosin (HYTRIN) 10 mg capsule 08/28/2022 -- -- Provider, MD Manish Current Outpatient Medications: ??? acetaminophen (TYLENOL) 325 mg tablet ??? albuterol 2.5 mg /3 mL (0.083 %) nebulizer solution ??? amLODIPine (NORVASC) 5 mg tablet ??? aspirin 81 mg enteric coated tablet ??? atorvastatin (LIPITOR) 10 mg tablet ??? calcium carbonate (OS-KARL) 1,500 mg (600 mg elemental) tablet ??? cholecalciferol (VITAMIN D-3) 5,000 unit tablet ??? clopidogreL (PLAVIX) 75 mg tablet ??? divalproex DR (DEPAKOTE) 250 mg EC tablet ??? fluticasone propion-salmeteroL (ADVAIR DISKUS) 100-50 mcg/dose diskus inhaler ??? folic acid (FOLVITE) 1 mg tablet ??? losartan (COZAAR) 100 mg tablet ??? metoprolol (LOPRESSOR) 100 mg tablet ??? pantoprazole DR (PROTONIX) 40 mg EC tablet ??? ramelteon (ROZEREM) 8 mg tablet ??? senna (SENOKOT) 8.6 mg tablet ??? terazosin (HYTRIN) 10 mg capsule Social History Tobacco Use Smoking Status Every Day ??? Packs/day: 1.00 ??? Types: Cigarettes ??? Start date: 1964 Smokeless Tobacco Never Vaping Use ??? Vaping Use: Never used Alcohol Use: Not At Risk (07/30/2022) AUDIT-C ??? Frequency of Alcohol Consumption: Never ??? Average Number of Drinks: Patient does not drink ??? Frequency of Binge Drinking: Never Substance and Sexual Activity Drug Use Yes ??? Types: Alcohol Comment: Reportedly 3 shots of Tequila/day Family History Problem Relation Age of Onset ??? Hypertension Mother ??? Lung cancer Father ??? Cancer Father ??? Anesthesia problems Neg Hx There were no vitals filed for this visit. PT: No results found for requested labs within last 30 days. INR: No results found for requested labs within last 30 days. APTT: No results found for requested labs within last 30 days. Hgb A1C: No results found for requested labs within last 30 days. CBC RBC: 08/03/2022: 2.77 M/cumm (L) RDW: No results found for requested labs within last 30 days. MCHC: 08/03/2022: 33.1 g/dL MCH: 08/03/2022: 32.9 pg MCV: 08/03/2022: 99.3 fL (H) Hct: 08/03/2022: 27.5 % (L) Hgb: 08/03/2022: 9.1 g/dL (L) WBC: 08/03/2022: 4.8 K/cumm MPV: 08/03/2022: 10.1 fL Platelets: 08/03/2022: 133 K/cumm (L) RDW CV: 08/03/2022: 13.7 % RDW Sd: 08/03/2022: 48.9 fL (H) BMP Glucose: 07/31/2022: 101 mg/dL Calcium: 07/31/2022: 8.5 mg/dL Sodium: 07/31/2022: 136 mmol/L Potassium: 07/31/2022: 3.8 mmol/L CO2: 07/31/2022: 26 mmol/L Chloride: 07/31/2022: 102 mmol/L BUN: 07/31/2022: 17 mg/dL Creatinine: 07/31/2022: 0.97 mg/dL DOS Physical Exam Medical history, medications, and allergies reviewed. Attestation: With today's edits, I endorse the findings of the anesthesia pre-evaluation assessment dated: 07/17/2022. Airway Exam: Mallampati: II Cardiovascular Exam: Rate: regular Rhythm: regular Pulmonary Exam: LCTA (Non-labored breathing) Dental Exam: Poor dentition, missing and chipped Current state: Patient's current state is cooperative. (A&Ox1) Anesthesia Plan ASA 3 My patient is approved for the Anesthesia Controlled Medication protocol when under care of a INFORMATION SYSTEMS SUPERVISOR Planned anesthesia: General/TIVA Induction: Induction: intravenous. Postoperative Plan: Postoperative administration opioids intended. No postoperative mechanical ventilation intended. Informed Consent: Discussed plan with INFORMATION SYSTEMS SUPERVISOR. Anesthesia plan and risks discussed with patient and healthcare power of trade mark attorney. Plan and Consent Comments: LMA/ETT as needed Consent and Attending signature: I and/or my designee have discussed the anesthesia plan, benefits, possible alternatives, parental presence at time of induction (if indicated), and clinically relevant risks that may include dental injury, unintentional awareness, and/or other complications. The patient and/or parent/legal guardian understand, and agree to proceed. All questions answered. documented in this encounter Plan of Treatment Not on file documented as of this encounter Visit Diagnoses Not on filedocumented in this encounter Administered Medications Inactive Administered Medications - up to 3 most recent administrations Medication Order MAR Action Action Date Dose Rate Site lidocaine (cardiac) (XYLOCAINE) preservative free injection intravenous, As needed, Starting on Sat08/29/22 at 0948, Anesthesia Intra-op, Indications: Ventricular ArrhythmiasIndications:Ventricular Arrhythmias Given 08/29/2022 9:48 AM CDT 2 mL propofoL (DIPRIVAN) 10 mg/mL IV intravenous, As needed, Starting on Sat08/29/22 at 0948, Anesthesia Intra-op Given 08/29/2022 9:48 AM CDT 140 mg sodium chloride 0.9% infusion intravenous, Continuous PRN, Starting on Sat08/29/22 at 0940, Anesthesia Intra-op Restarted 08/29/2022 9:57 AM CDT New Bag 08/29/2022 9:40 AM CDT 50 mL/hr documented in this encounter Additional Health Concerns Infection Onset Date Last Indicated Resolved Time MDR gram neg/ESBL Comment:06/16/2021 IP Review - Pt with scrotal abscess, but is not actively draining (last documented draining on 06/14). Pt remains intubated so requires trach aspirate for isolation discontinuation. Provider notified. Amanda Walker RN 12/19/2019 12/19/2019 documented as of this encounter Care Teams Business Process Architect Relationship Specialty Start Date End Date Abiodun Novak MD [address] [address] [place] [address] PCP - General Cardiology 06/13/22 05/09/23 Jean-Claude Crawford MD [address] [place] [address] Family Medicine 04/12/20 Jessie Delvalle MD [address] [place] [address] Orthopedic Surgery 07/07/21 Sandip Barone MD [address] [address] Consulting Physician Neurosurgery 07/07/21 documented as of this encounter
--- OUTSIDE RECORDS SUMMARY | 2024-04-08 10:32 | XMS_ITS | Encounter Summary ---
Author Organization [facility] Address [address] [place] [address] Care Team Providers Care Manager Book Name Role Phone Jean-Claude Crawford MD Unavailable [phone] Jessie Delvalle MD Unavailable + Sandip Barone MD Unavailable Abiodun Novak MD Primary Care Provider [phone] Reason for Visit * Reason Comments Atrial Fibrillation Encounter Details Date Type Department Care Team (Late st Contact Info) Description 08/29/2022 11:30 AM CDT Office Visit [facility] Cardiology [address] [place] [address] Savana Nicole NP [address] [facility] [address] [place] [address] Presence of Watchman left atrial appendage closure device (Primary Dx); Chronic atrial fibrillation (HCC); Essential hypertension Social History Tobacco Use Types Packs/Day Years Used Date Smoking Tobacco: Former Cigarettes 1 57 1 966 - 04/2022 Smokeless Tobacco: Never Tobacco Cessation:Counseling Given: Not Answered Alcohol Use Standard Drinks/Week Comments Yes 4 [...] often do you attend chur ch or zoroastrian services? Never 07/31/2022 Do you belong to [...] place to sleep or slept in a assisted (including now)? No 07/31/2022 Personal Safety Answer Date Recorded Have you ever been in or are you currently in a harmful physical or emotional relationship or is someone making you feel afraid or unsafe? 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 Gender Identity Not on file Sexual Orientation Not on file documented as of this encounter Last Filed Vital Signs Vital Sign Reading Time Taken Comments Blood Pressure 132/84 08/29/2022 11:07 AM CDT Pulse 77 08/29/2022 11:07 AM CDT Temperature - - Respiratory Rate - - Oxygen Saturation 98% 08/29/2022 11:07 AM CDT Inhaled Oxygen Concentration - - Weight 81.6 kg (180 lb) 08/29/2022 11:07 AM CDT Height 180.3 cm (5' 11 ) 08/29/2022 11:07 AM CDT Body Mass Index 25.1 08/29/2022 11:07 AM CDT documented in this encounter Progress Notes * Savana Nicole NP - 08/29/2022 11:30 AM CDT [facility] Cardiology [facility] [address] [address] Cardiology MD Donavan Still, MD Ray Marmolejo, MD Abiodun Novak, MD Dmitry Das, MD Clarence Wilkes, MD Linwood Meza, MD Pedro Luis Mccormack, MD Dr. Cuong Guzman, MD Rui Villegas, MD Andreas Wheeler, MD Savana Nicole, ACTIVITIES CONCIERGE Damir Dowling, ACTIVITIES CONCIERGE Jannie Montano, ACTIVITIES CONCIERGE Jeanine Palacios, ACTIVITIES CONCIERGE Patient Name: Lloyd Redman Provider: RUBEN Smith : 1950 Date of Service: 08/29/2022 Referring: Kishore CHIEF COMPLAINT: Atrial Fibrillation HISTORY OF PRESENT ILLNESS: 72 y.o. male with a history of chronic atrial fibrillation, dyslipidemia, hypertension frequent falls and prior intracranial hemorrhage who was in the office today for follow-up. Patient had a Watchman device placed on 07/17/[address] Mccormack. He is in the office today for his 45 day follow-up visit. Since having his device placed, patient reports feeling well. He denies any new or worsening cardiac symptoms. He is taking all of his cardiac medications as prescribed andtrying to adhere to a heart healthy diet. Patient denies chest pain, shortness of breath, orthopnea, lightheadedness, dizziness, palpitations, claudication, edema and syncope. REVIEW OF SYSTEMS: General: No fever or [...] excessive bleeding or bruising PHYSICAL EXAM: BP 132/84 Pulse 77 Ht 180.3 cm (5' 11 ) Wt 81.6 kg (180 lb) SpO2 98% BMI 25.10 kg/m?? Body mass index is 25.1 kg/m??. General: Elderly WM ;cooperative: no acute distress Eyes: SARINA/EOMI, Conjuctiva Clear ENT: External ears/nose normal Neck: Supple; no JVD or bruits Respiratory: Clear to ausculation bilaterally; no wheezing or rales; respirations nonlabored Cardiovascular: irregular rhythm, no murmur, rub or gallop Gastrointestinal: [...] 10 07/29/2022 ANIONGAP 7 07/17/2022 CARDIOGRAPHICS: Echo 07/30/2022 Conclusions: Mild concentric left ventricular [...] S/p Watchman device (27 mm) Cholo done today shows a 3 mm residual leak - Continue aspirin and Plavix for 6 months post procedure 2. Chronic atrial fibrillation Rate controlled -Continue metoprolol -Watchman device in place 3. Hypertension Blood pressure controlled -Continue losartan, metoprolol and amlodipine This note was dictated with voice-recognition software, transportation maintenance supervisor errors may be present. Savana Nicole NP Cosigned by Pedro Luis Mccormack MD at 08/29/2022 11:37 AM CDT documented in this encounter Plan of Treatment Not on file documented as of this encounter Visit Diagnoses Diagnosis Presence of Watchman left atrial appendage closure device- Primary Chronic atrial fibrillation (HCC) Atrial fibrillation Essential hypertension Unspecified essential hypertension documented in this encounter Discontinued Medications Medication Sig Discontinue Reason Start Date End Da te pantoprazole DR (PROTONIX) 40 mg EC tablet Take 1 tablet (40 mg total) by mouth daily Therapy completed 08/29/2022 calcium carbonate (OS-KARL) 1,500 mg (600 mg elemental) tablet calcium carbonate 600 mg calcium (1,500 mg) tablet Therapy completed 08/29/2022 documented as of this encounter Historical Medications * This list may reflect changes made after this encounter. omeprazole (PriLOSEC) 20 mg capsule Take 1 capsule (20 mg total) by mouth daily L. acidophilus/L. bifidus (LACTOBACILLUS ACIDOPH-L. BIFID ORAL) Take by mouth added in this encounter Additional Health Concerns Infection Onset Date Last Indicated Resolved Time MDR gram neg/ESBL Comment:06/16/2021 IP Review - Pt with scrotal abscess, but is not actively draining (last documented draining on 06/14). Pt remains intubated so requires trach aspirate for isolation discontinuation. Provider notified. Amanda Walker RN 12/19/2019 12/19/2019 documented as of this encounter Care Teams Manager Book Relationship Specialty Start Date End Date Abiodun Novak MD [address] [place] [address] PCP - General Cardiology 06/13/22 05/09/23 Jean-Claude Crawford MD [address] [place] [address] Family Medicine 04/12/20 Jessie Delvalle MD [address] [place] [address] [address] [place] [address] Orthopedic Surgery 07/07/21 Sandip Barone MD [address] [facility] [address] [place] [address] Consulting Physician Neurosurgery 07/07/21 documented as of this encounter
--- OUTSIDE RECORDS SUMMARY | 2024-04-08 10:32 | XMS_ITS | Encounter Summary ---
Author Organization [facility] Healthcare Address [address] [place] [address] Care Team Providers Care Field Support Rep Name Role Phone Jean-Claude Crawford MD Unavailable [phone] Jessie Delvalle MD Unavailable + Sandip Barone MD Unavailable [phone] Abiodun Novak MD Primary Care Provider [phone] Reason for Visit * Reason Onset Date Comments Appt question 05/01/2023 Encounter Details Date Type Department Care Team (Late st Contact Info) Description 05/01/[address] [facility] Medical Group Cardiology [address] [facility] [address] [place] [address] Abiodun Novak MD [facility] [address] [place] [address] Appt question Social History Tobacco Use Types Packs/Day Years [...] often do you attend chur ch or shinto services? Never 07/31/2022 Do you belong to any clubs o r organizations such as anglican groups, unions, fraternal or athletic groups, or [...] place to sleep or slept in a prison (including now)? No 07/31/2022 Personal Safety Answer Date Recorded Have you ever been in or are you currently in a harmful physical or emotional relationship or is someone making you feel afraid or unsafe? 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 I spoke to Elena and she states that they can be combined. Combined 1 yr watchman and 1 yr follow up together for May 15 AVER HAND SOFT METALS documented in this encounter Plan of Treatment [...] documented as of this encounter Care Teams Field Support Rep Relationship Specialty Start Date End Date Abiodun Novak MD [address] [facility] [address] [place] [address] PCP - General Cardiology 06/13/22 05/09/23 Jean-Claude Crawford MD [address] [place] [address] Family Medicine 04/12/20 Jessie Delvalle MD [address] [place] [address] Orthopedic Surgery 07/07/21 Sandip Barone MD [address] [address] Consulting Physician Neurosurgery 07/07/21 documented as of this encounter
--- OUTSIDE RECORDS SUMMARY | 2024-04-08 10:32 | XMS_ITS | Encounter Summary ---
Author Organization [facility] Healthcare Address [address] [place] [address] Care Team Providers Care Disability Representative Name Role Phone Jean-Claude Crawford MD Unavailable [phone] Jessie Delvalle MD Unavailable + Sandip Barone MD Unavailable [phone] Carey Dorsey [facility] Primary Care Provi jovanny Encounter Details Date Type Department Care Team (Late st Contact Info) Description 08/02/[address] [facility] Medical Group Cardiology [address] [place] [address] Trey Moore MD [address] [facility] [address] [place] [address] Social History Tobacco Use Types Packs/Day Years [...] often do you attend chur ch or spiritism services? 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 Gender Identity Not on file Sexual Orientation Not on file documented as of this encounter Plan of Treatment Not on file documented as of this encounter Procedures Procedure Name Priority Date/Time Associated Diagnosis Comments CARDIOLOGY DOCUMENT SCAN Routine 08/01/2023 1:17 PM CDT documented in this encounter Results * Cardiology Document Scan (08/01/2023 1:17 PM CDT) Anatomical Region Laterality Modality Other us Trey Moore MD CV CARDIAC SERVICES PROC EDURES Final Result documented in this encounter Visit [...] documented as of this encounter Care Teams Disability Representative Relationship Specialty Start Date End Date Carey Dorsey NP [address] [facility] [id number] PCP - General Family Medicine 05/15/23 Jean-Claude Crawford MD [facility] [address] [facility] [address] [place] [address] Family Medicine 04/12/20 Jessie Delvalle MD [address] [facility] [address] [place] [address] Orthopedic Surgery 07/07/21 Sandip Barone MD [address] [address] Consulting Physician Neurosurgery 07/07/21 documented as of this encounter
--- OUTSIDE RECORDS SUMMARY | 2024-04-08 10:33 | XMS_ITS | Encounter Summary ---
Author Organization [facility] Medical Group Address [address] [facility] [address] [place] [address] Care Team Providers Care Farm Consultant Name Role Phone Jean-Claude Crawford MD Primary Care Provider Jean-Claude Crawford MD Unavailable [phone] Jessie Delvalle MD Unavailable + Sandip Barone MD Unavailable [phone] Encounter Details Date Type Department Care Team (Late st Contact Info) Description 04/19/2022 Telephone [facility] Medical [facility] Cardiology [address] [facility] [address] [place] [address] Abiodun Novak MD [facility] [address] [place] [address] Social History Tobacco Use Types Packs/Day Years [...] friends, or neighbors? Three times a week 10/06/2021 How often do you get togethe r with friends or relatives? Never 10/06/2021 How often do you attend chur ch or amish services? Never 10/06/2021 Do you belong to any clubs o r organizations such as jehovah's witness groups, unions, fraternal or athletic groups, or school groups? No 10/06/2021 How often do you attend meet ings of the clubs or organizations you belong to? Never 10/06/2021 Are you , , di vorced, , never , or living with a partner? 10/06/2021 AUDIT-C Answer Date Recorded Q1: How often do you have a drink containing alcohol? 4 or more times a week 07/04/2021 Q2: How many drinks containi ng alcohol do you have on a typical day when you are drinking? 3 or 4 Q3: How often do you have si x or more drinks on one occasion? Less than monthly 07/04/2021 Overall Financial Resource Strain (CARDIA) Answe r Date Recorded How hard is it for you to pa y for the very basics like food, housing, medical care, and heating? Somewhat hard 10/06/2021 Hunger Vital Sign Answer Date Recorded Within the past 12 months, y ou worried that your food would run out before you got the money to buy more. Never true 10/07/19 22 Within the past 12 months, t he food you bought just didn't last and you didn't have money to get more. Never true 10/06/2021 PRAPARE - Transportation Answer Date Re corded In the past 12 months, has l ack of transportation kept you from medical appointments or from getting medications? No 04/2021 In the past 12 months, has l ack of transportation kept you from meetings, work, or from getting things needed for daily living? No 10/06/2021 Housing Stability Vital Sign Answer Darren e Recorded In the last 12 months, was t here a time when you were not able to pay the mortgage or rent on time? No 10/06/2021 In the last 12 months, how many places have you lived? 1 10/06/2021 In the last 12 months, was t here a time when you did not have a steady place to sleep or slept in a halfway (including now)? 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 Gender Identity Not on file Sexual Orientation Not on file documented as of this encounter Miscellaneous Notes * Telephone Encounter - Guillermina Luna MA - 04/19/2022 11:54 AM SCRATCHER TENDER Medication list obtained from [facility] TCHER TENDER documented in this encounter Plan of Treatment [...] documented as of this encounter Care Teams Farm Consultant Relationship Specialty Start Date End Date Jean-Claude Crawford MD [address] [place] [address] PCP - General Family Medicine 04/12/20 06/12/22 Jean-Claude Crawford MD [address] [place] [address] Family Medicine 04/12/20 Jessie Delvalle MD [address] [place] [address] Orthopedic Surgery 07/07/21 Sandip Barone MD [address] [place] [address] Consulting Physician Neurosurgery 07/07/21 documented as of this encounter
--- OUTSIDE RECORDS SUMMARY | 2024-04-08 10:33 | XMS_ITS | Encounter Summary ---
Author Organization [facility] Medical Group Address [address] [facility] [address] [place] [address] Care Team Providers Care Car Seat Coverer Name Role Phone Jean-Claude Crawford MD Unavailable [phone] Jessie Delvalle MD Unavailable + Sandip Barone MD Unavailable [phone] Abiodun Novak MD Primary Care Provider [phone] Reason for Referral * Cardiology (Routine) - [...] DOPPLER/CF W CONTRAST Pedro Luis Mccormack MD [address] [place] [address] Phone: tel: fax: [facility] [address] [place] [address] Referral ID Status Reason Start Date Expiration Date Visits Re quested Visits Authorized [id number] Closed 08/27/2022 11/24/2022 1 1 Encounter Details Date Type Department Care Team (Late st Contact Info) Description 06/19/2022 Telephone [facility] Medical Group Cardiology [address] [facility] [address] [place] [address] Pedro Luis Mccormack MD [address] [facility] [address] [place] [address] Social History Tobacco Use Types [...] 10/06/2021 How often do you attend chur or lutheran services? Never 10/06/2021 Do you belong to any clubs o r organizations such as congregational groups, unions, fraternal or athletic groups, or [...] place to sleep or slept in a [place] facility (including now)? 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 Confirmed NPO past midnight. Morning meds okay with small sip of water otherwise nothing else to eat or drink. Arrival time 0730 [facility] building D. Inquired about labs- Ketty the nurse there today reports they have them entered and requested to come out today, but sometimes they do not. RN reiterated that the pre-procedure labs are needed prior to procedure. Requested them to call their lab service company to confirm they will be coming out tocomplete. Nurse there reports she will try to confirm and took down cb number. Nothing further at this time. * Telephone Encounter - Marilee Villanueva RN - 07/06/2022 9:51 AM CDT Called [employer] [place] [id number] [place] [id number] (was originally moved for 07/31/22 when movedfrom 06/19/22) to now 07/17/22 since facility has cleared pt from previous respiratory illness. * Addendum Note - Marilee Villanueva RN - 07/05/2022 11:54 AM CDT Addended by: MARILEE VILLANUEVA on: 07/05/2022 11:54 AM Modules accepted: Orders * Telephone Encounter - Marilee Villanueva RN - 07/05/2022 11:53 AM CDT Images from the original note were not included. Instructions for Watchman Device Procedure Patient Name: Jania Guajardo (52) Time of Arrival: will be relayed to you via phone on 07/13/22 Date of Procedure: 07/17/22 Location: [address] [address] [facility] [address] 2nd floor Cardiac Thrasher Feeder Instructions: NOTHING TO EAT OR DRINK AFTER MIDNIGHT, except for taking normal morning medications (as listed below) with small sips of water. Medications: DO NOT STOP Plavix, Effient, Brilinta or Aspirin for this procedure. If you take Coumadin, Warfarin, Pradaxa, Eliquis, or Xarelto you will need to stop taking that 3 days prior to your procedure. LAST DOSE SHOULD BE ON 07/13/22. DO NOT TAKE ANY MORE STARTING 07/14/22 You will need to start taking an 81mg aspirin the day before and the day of your procedure. DO NOT take fast acting diabetic medication or insulin the morning of the procedure. Please take all other medications as usual with small sips of water the morning of procedure. If you are allergic to iodine, shellfish or X-Ray dye, you may require medications to prevent a reaction. Please contact the office for additional instructions if applicable. N/A You are required to have Pre-Procedure Testing & Labs, please have these done by: 07/13/2022 BMP, CBC, PT-INR Please plan to have a tractor driver take you home. You may be kept overnight for observation; however, youwill not be allowed to drive yourself home, the next day. Please bring photo ID, insurance cards, and list of current medication. 45 DAY FOLLOW UP JOSÉ MANUEL PROCEDURE and SAME DAY OFFICE VISIT WITH NURSE PRACTITIONER Date: 08/29/2022 Arrival Time: 08:30 AM Location: [facility] D. Cardiac Thrasher Feeder (located on second floor) Instructions: NOTHING TO EAT OR DRINK 8 HOURS PRIOR TO YOUR PROCEDURE TIME except taking medications listed belowwith small sips of water. Medications: DO NOT STOP Plavix, Effient, Brilinta or Aspirin for this procedure. DO NOT take oral diabetic medication or insulin the morning of the procedure. Take all other medications as usual with small sips of water the morning of procedure. Please plan to have a tractor driver take you home. Your discharge time will depend on the findings of yourprocedure. Bring photo ID, insurance cards, and current list of medications. No need for new lab work unless you have any changes in health or bleeding issues Same Day Office Visit: [facility] - Building [address]: [address] Same Day OFFICE VISIT Following JOSÉ MANUEL at: 11:15 AM Who you'll be seeing tentatively: GARIMA Solorzano * Telephone Encounter - Marilee Villanueva RN - 07/05/2022 10:58 AM CDT Spoke with Ina at [facility]- She confirms she will be transporting patient and will be ableto have him arrive by 729 on 07/17. Pt is in memory care facility. Pt will be brought to check in at [facility] by staff, and will need to be called upon approximately 1 hour prior to discharge so staff can return at appropriate time. Can call Ina at [facility] at: [phone] Ask action finisher for Ina Report to her when pt is anticipating discharge within the hour and she will report back to facility to fern picker pt Will note to staff at [facility] that this pt is memory care pt and will need a higher level of observation. Sending procedure info to staff at: [address] [facility] [place] [address] And will send via fax to: [phone] 45 Day FU JOSÉ MANUEL and OV 08/29/22 Arrive by to CCL at [facility] 0830 Same day OV: 11:15 * Addendum Note - Marilee Villanueva RN - 07/04/2022 3:21 PM CDTAddended by: MARILEE VILLANUEVA on: 07/04/2022 03:21 PM Modules accepted: Orders * Telephone Encounter - Marilee Villanueva RN - 07/04/2022 3:00 PM CDT Spoke with Brianna at [facility]. Needs to check with transportation. Thinking arrival time 0730 so pt has ample time for discharge by 3 PM. Which is the latest pt could be picked up by their transportation service. Re-sending the SDM to OPERATING ROOM RN that sees pt at SNF to ensure no concerns over pt proceeding with wm. Alsosending new lab orders that are needed for updated blood draw. Bmp Cbc Pt-inr Resent SDM form for provider to review and sign off on pt is cleared to proceed with procedure and clear of all previous respiratory illness. * Telephone Encounter - Marilee Villanueva RN - 07/04/2022 1:33 PM CDT Called [employer] to attempt confirmation for transportation at pt's SNF. 2 previous attempts with message that call would be returned with answer with no call over the last2 days. Third attempt resulted in no answer entirely at establishment. Called [employer] for significant other to confirm date will be on 07/17/22 pending confirmation for transportation. * Telephone Encounter - Marilee Villanueva RN - 07/04/2022 8:32 AM CDT Called [facility] again today to determine if there will be transportation available for 07/17/22 for pt to receive watchman that day now that he has been cleared from pneumonia Called spouse again notifying her that planning to move pt to 07/17/22 since nurse is reporting he has been having no issues and cleared of any pneumonia. Still waiting for confirmation of transportation for that day. * Telephone Encounter - Marilee Villanueva RN - 07/03/2022 12:10 PM CDT Called SNF and inquired on pt's health status and if okay to proceed with wm procedure for . Nurse caring for pt reported that he has been getting up and not having any issues so no obvious health concern to move forward with watchman on the . Asked to speak to transport to confirm if someone if available to transport that day. Unsure of whothat was at their facility. Nurse took down name and contact number for RN and reported that transportation would call back today to confirm availability. Awaiting cb. Called pt's spouse and updated that base off SNF report and pending availability to transport, willplan on 07/17/22 for pt to receive wm. Name and cb number provided in case spouse has any questions or concerns. * Telephone Encounter - Marilee Villanueva RN - 06/19/2022 8:52 AM CDT Called BS insurance auth and requested new date of service be changed to slated 07/31/22. [employer] lead generation representative verbally acknowledged date change and will generate a new approval letter with new date of service 07/31/22. documented in this encounter Plan of Treatment Not on file documented as of this encounter Results * TRANSESOPHAGEAL ECHO (JOSÉ MANUEL) W DOPPLER/CF WO CONTRAST (08/29/2022 10:13 AM CDT) Anatomical Region Laterality Modality Echocardiography 08/29/2022 9:41 AM CDT Narrative 08/29/2022 12:06 PM CDT [facility] [address] [place] [address] TRANSESOPHAGEAL ECHOCARDIOGRAM Patient Name: JANIA GUAJARDO : 1950 Study Date: 08/29/2022 9:41:19 AM Gender: M Tech: Location: [facility] Ref.Provider: PEDRO LUIS MCCORMACK Height(Cm): 168 BSA: [...] 12:06:27 CDT CC: CC: Procedure Note Donavan Davila MD - 08/29/2022 [facility] [address] [place] [address] TRANSESOPHAGEAL ECHOCARDIOGRAM Patient Name: JANIA GUAJARDOPatient ID: [id number] : [id number] Date: 08/29/2022 9:41:19 AM Gender: Lobitocession #: [id number] Tech: MJLocation: CCL Ref.Provider: PEDRO LUIS MCCORMACKHeight(Cm): [...] Davila MD 2022-08-29 12:06:27 CDT CC: CC: Pedro Luis Mccormack MD CV ECHO PROCEDURES Final Result documented in this encounter Visit Diagnoses Diagnosis Atrial fibrillation, unspecified type (HCC)- Primary Atrial fibrillation, unspecified type (HCC) documented in this encounter Orders Lab Orders Without Results Count Last Ordered D ate First Ordered Date BASIC METABOLIC PANEL 1 07/04/2022 CBC WITH AUTO DIFFERENTIAL 1 07/04/2022 PROTIME-INR 1 07/04/2022 documented in this encounter Additional Health Concerns Infection Onset Date Last Indicated Resolved Time MDR gram neg/ESBL Comment:06/16/2021 IP Review - Pt with scrotal abscess, but is not actively draining (last documented draining on 06/14). Pt remains intubated so requires trach aspirate for isolation discontinuation. Provider notified. Amanda Walker RN 12/19/2019 12/19/2019 documented as of this encounter Care Teams Car Seat Coverer Relationship Specialty Start Date End Date Abiodun Novak MD [address] [facility] [address] [place] [address] PCP - General Cardiology 06/13/22 05/09/23 Jean-Claude Crawford MD [address] [place] [address] Family Medicine 04/12/20 Jessie Delvalle MD [address] [place] [address] Orthopedic Surgery 07/07/21 Sandip Barone MD [address] [address] Consulting Physician Neurosurgery 07/07/21 documented as of this encounter
--- OUTSIDE RECORDS SUMMARY | 2024-04-08 10:33 | XMS_ITS | Encounter Summary ---
Author Organization [facility] Healthcare Address [address] [place] [address] Care Team Providers Care Hydraulic Oil Tool Operator Name Role Phone Jean-Claude Crawford MD Unavailable [phone] Jessie Delvalle MD Unavailable + Sandip Barone MD Unavailable [phone] Abiodun Novak MD Primary Care Provider [phone] Reason for Visit * Auth/Cert (Routine) Specialty Diagnoses / Procedures Referred By Lei t Referred To Contact Diagnoses Atrial fibrillation, unspecified type (HCC) Atrial fibrillation, unspecified type (HCC) [I48.91] Procedures DC PERQ CLSR TCAT L ATR APNDGE W/ENDOCARDIAL IMPLNT DC ECHO JOSÉ MANUEL GUID TCAT ICAR/VESSEL STRUCTURAL INTVN PERC TINY CLOSE W/IMPLANT 98859 Referral ID Status Reason Start Date Expiration Date Visits Re quested Visits Authorized [id number] 1 1 Encounter Details Date Type Department Care Team (Late st Contact Info) Description 07/17/2022 9:29 AM CDT Anesthesia Event [facility] [address] [place] [address] Jair Hayes, DO [address] [place] [address] Kathleen Caceres CRNA [address] [place] [address] Anesthesia Record Procedure Summary Procedure Name Responsible Anesthesiologist Anesthesia Start Time Anesthesia Stop Time PERC TINY CLOSE W/IMPLANT 14823 Jair Hayes DO 07/17/22 0929 07/17/22 1031 Events Date Time Event Comment 07/17/2022 0900 0929 An Start 0929 An Start Data 0934 An Induction The patient was reevaluated immediately before moderate or deep sedation use and before anesthesia induction. 0937 An Intubation 0938 Anesthesia Ready 1015 An Extubation 1019 an stop data 1028 Handoff to RN I completed my handoff [...] disposition at the time of handoff: PACU 1031 An Stop Meds Name Total fentaNYL 25 mcg lidocaine (CARDIAC) syringe 2 % 5 mL propofol 100 mg rocuronium 40 mg phenylephrine 100 mcg/mL 100 mcg ondansetron 4 mg dexamethasone 4 mg/ml 4 mg clindamycin (CLEOCIN) 900 mg/50 mL in de xtrose 5% (premix) 900 mg 900 mg phenylephrine (CON-SYNEPHRIN E) 25,000 mcg in sodium chloride 0.9% 250 mL (100 mcg/mL) infusion 1.57 mg norepinephrine 40 mcg heparin 1,000 unit/ml 11,000 Units sodium chloride 0.9% infusion 600 mL * Agents Name O2 N2O Air Desflurane Inspired Desflurane * Blood No blood administrations on file. Lines, Drains, and Airways Type Details Placement Removal External Urinary Device Male; 07/29/22; 204610/13/21 0552 by 07/29/222046 by Jose Alfredo Avitia RN RETIRED Wound 06/27/21; 1425; MASD (Moisture associated skin damage); Perineum; , buttocks; 03/10/24 (Retired LDA, Removed/Completed by Folkstr with LDA Utility); 1213 (Retired LDA, Removed/Completed by Folkstr with LDA Utility) 06/27/21 1425 by Ani Chavez RN 03/10/24 1213 by Discharge Provider, Automatic RETIRED Surgical Site 07/04/21; 1031; Le ft; Leg; 07/30/22; Not present on admission 07/04/21 1031 by Candis Wu RN 07/30/22 0000 by Renetta Wise RN RETIRED Surgical Site 10/08/21; 1035; Ri ght; Hip/trochanter; 07/30/22; Not present on admission 10/08/21 1035 by Miladys Flowers RN 07/30/22 0000 by Renetta Wise RN Peripheral IV Placement Date: 10/08/21; Placement Time: 105 (created via procedure documentation); Catheter Size: 18 G; Orientation: Left; Location: Wrist; Site Prep: Chlorhexidine; Insertion Attempts: 1; Removal Date: 07/29/22; Removal Time: 204610/08/21 105 by Miley Clark CRNA 07/29/222046 by Jose Alfredo Avitia RN External Urinary Device 10/20/21; 0200; Male; (PT PRESENTS WITH NO TOUSSAINT DC'D IN CHART); 07/29/22; 204710/20/21 0200 by Jeanine Lau RN 07/29/222047 by Jose Alfredo Avitia RN Peripheral IV Placement Date: 07/17/22; Placement Time: 08; Catheter Size: 20 G; Orientation: Left; Location: Forearm; Site Prep: Chlorhexidine; Removal Date: 07/17/22; Removal Time: 13507/17/22 0842 by Vandana Greene RN 07/17/22 1358 by Vandana Greene RN ETT Placement Date: 07/17/22; Placement Time: 09 (created via procedure documentation); Mask Ventilation: 2; Technique: Video laryngoscopy; Type: ETT - single; Single Lumen Tube Size: 8 mm; Cuffed: Yes; Laryngoscope: Solange; Blade Size: 4; Location: Oral; Insertion Attempts: 1; Placement Verification: Auscultation, Capnometry; Removal Date: 07/17/22; Removal Time: 10107/17/22 0947 by Kathleen Caceres CRNA 07/17/22 1015 by Kathleen Caceres CRNA documented in this encounter Social History Tobacco [...] attend chur ch or zoroastrian services? Never 10/06/2021 Do you belong to any clubs o r organizations such as methodist groups, unions, fraternal or athletic groups, or [...] slept in a half-way (including now)? 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 Gender Identity Not on file Sexual Orientation Not on file documented as of this encounter OR Notes * Anesthesia Postprocedure Evaluation - Jair Hayes DO - 07/17/2022 11:15 AM CDT Patient: Lloyd Redman Procedure Summary Date: 07/17/22 Room / Location: [facility] / [facility] Anesthesia Start: 928 Anesthesia Stop: 1030 Procedure: PERC TINY CLOSE W/IMPLANT [id number] Diagnosis: Atrial fibrillation, unspecified type (HCC) (Atrial fibrillation, unspecified type (HCC) [I48.91]) Providers: Pedro Luis Mccormack MD Responsible Provider: Jair Hayes DO Anesthesia Type: general ASA Status: 3 Anesthesia Type: general Last vitals BP 128/85 Pulse 77 Temp 36 ??C (96.8 ??F) (Temporal) Resp 21 SpO2 92% Anesthesia Post Evaluation Patient location during evaluation: PACU Patient participation: complete - patient participated Level of consciousness: follows simple commands and fully awake Pain management: adequate Airway patency: adequate Cardiovascular status: acceptable and hemodynamically stable Respiratory status: acceptable Hydration status: acceptable Pt is: normothermic Nausea/Vomiting status: none No notable events documented. * Anesthesia Procedure Notes - Kathleen Caceres CRNA - 07/17/2022 9:46 AM CDTAssociated Order(s): Airway Airway Patient location: OR Urgency: elective Indications for airway management: anesthesia Difficult airway: no Staff: Supervising provider: Jair Hayes DO Placed by: STEAM AND POWER SUPERVISOR: Kathleen Caceres CRNA Emergent airway documentation: Risks and benefits discussed: yes Consent obtained: yes Consent given by: patient Airway prep: Preoxygenated: yes Patient position: sniffing Mask difficulty assessment: 2 - vent by mask + OA or adjuvant Sedation level during airway: GA Final airway details: Final airway type: endotracheal airway Tube type: ETT ETT size: 8.0 mm Cuffed: yes Technique used for successful ETT placement: video laryngoscopy Devices/Methods used in placement: stylet Insertion site: oral Blade type: Solange Video blade type: Gonzalez Blade size: 4 Cormack-Lehane (video): grade IIa - partial view of glottis Cuff volume: 10 mL Cuff inflated with: air ETT to teeth: 23 cm Placement verified by: auscultation and CO2 detection Airway secured with: silk tape Number of attempts: 1 * Anesthesia Preprocedure Evaluation - Jair Hayes DO - 07/17/2022 8:38 AM CDT Images from the original note were not included. Anesthesia Evaluation Lloyd Redman is a 72 y.o. male Procedure(s): PERC TINY CLOSE W/IMPLANT 30581 Pre-Op Diagnosis Codes: * Atrial fibrillation, unspecified type (HCC) [I48.91] HISTORY Past Medical History Information obtained from: patient and chart. Neurological + TIA + Dementia/mild cognitive impairment Cardiovascular + Hypertension + CHF LVEF: >70%. [...] not required for adequate pharmacologic vasodilator stress. Respiratory + COPD Comments: CXR (10/04/2021): IMPRESSION: 1. No sign of pneumonia detected. 2. Mild cardiomegaly without signs of acute CHF or pulmonary edema. 3. No sign of a pleural effusion or pneumothorax. 4. Atherosclerotic change of aorta. Hepatic / Heme + History of anemia Gastrointestinal + GERD Review of Systems Pertinent negatives: productive cough; [...] (CMS/HCC) (HCC) ??? Septic shock (CMS/HCC) (HCC) Past Medical History: Diagnosis Date ??? Acute cholecystitis ??? Alcohol use ??? Anxiety ??? Atrial fibrillation (CMS/HCC) (HCC) ??? Blind legally blind ??? BPH (benign prostatic hyperplasia) ??? BPH (benign prostatic hyperplasia) ??? CHF (congestive heart failure) (CMS/HCC) (HCC) ??? CHF (congestive heart failure) (CMS/HCC) (HCC) ??? Cholecystitis ??? Chronic anemia ??? COPD (chronic obstructive pulmonary disease) (CMS/HCC) (HCC) ??? GERD (gastroesophageal reflux disease) ??? [...] Date Provider acetaminophen (TYLENOL) 325 mg tablet Unknown 07/07/21 -- Julieta Tirado NP Take 2 tablets (650 mg total) by mouth every 4 (four) hours as needed for pain albuterol 2.5 mg /3 mL (0.083 %) nebulizer solution Unknown -- -- Manish Cabezas MD amLODIPine (NORVASC) 5 mg tablet Unknown 10/28/21 10/28/22 Max Cunningham MD Take 1 tablet (5 mg total) by mouth daily aspirin 81 mg enteric coated tablet Unknown -- -- ProviderManish MD atorvastatin (LIPITOR) 10 mg tablet Unknown -- -- Provider, MD Manish cholecalciferol (VITAMIN D-3) 5,000 unit tablet 07/17/2022 -- -- Manish Cabezas MD divalproex DR (DEPAKOTE) 250 mg EC tablet Unknown -- -- Manish Cabezas MD fluticasone furoate-vilanteroL (BREO ELLIPTA) 100-25 mcg/dose diskus inhaler 07/17/2022 -- -- Manish Cabezas MD folic acid (FOLVITE) 1 mg tablet Unknown -- -- Manish Cabezas MD losartan (COZAAR) 50 mg tablet Unknown 10/12/21 10/12/22 Saqib Currie, Take 1 tablet (50 mg total) by mouth daily Patient taking differently: Take 2 tablets (100 mg total) by mouth daily metoprolol (LOPRESSOR) 100 mg tablet 07/17/2022 01/30/21 07/17/22 Abiodun Novak MD Take 1 tablet (100 mg total) by mouth 2 (two) times a day multivit,tx with iron,minerals (THERA-M ORAL) Unknown -- -- ProviderManish MD pantoprazole DR (PROTONIX) 40 mg EC tablet 07/17/2022 -- -- ProviderManish MD pravastatin (PRAVACHOL) 40 mg tablet Unknown -- -- Manish Cabezas MD QUEtiapine (SEROquel) 25 mg tablet () -- 10/27/21 04/17/22 Max Cunningham MD Take 1 tablet (25 mg total) by mouth every 6 (six) hours as needed (agitation) Patient not taking: Reported on 04/17/2022 ramelteon (ROZEREM) 8 mg tablet 07/17/2022 07/07/21 07/17/22 Julieta Tirado NP Take 1 tablet (8 mg total) by mouth nightly senna (SENOKOT) 8.6 mg tablet 07/17/2022 -- -- Manish Cabezas MD terazosin (HYTRIN) 10 mg capsule 07/17/2022 -- -- Manish Cabezas MD thiamine (VITAMIN B1) 100 mg tablet Unknown -- -- ProviderManish MD Current Facility-Administered Medications: ??? sodium chloride 0.9% infusion, 15 mL/hr, intravenous, Continuous ??? sodium chloride 0.9% infusion, 15 mL/hr, intravenous, Continuous Social History Tobacco Use Smoking Status Every Day ??? Packs/day: 1.00 ??? Types: Cigarettes ??? Start date: 1964 Smokeless Tobacco Never Alcohol Use: Not on file Substance and Sexual Activity Drug Use Yes ??? Types: Alcohol Comment: Reportedly 3 shots of Tequila/day Family History Problem Relation Age of Onset ??? Hypertension Mother ??? Lung cancer Father ??? Cancer Father ??? Anesthesia problems Neg Hx There were no vitals filed for this visit. PT: No results found for requested labs within last 720 hours. INR: No results found for requested labs within last 720 hours. APTT: No results found for requested labs within last 720 hours. Hgb A1C: No results found for requested labs within last 720 hours. CBC RBC: No results found for requested labs within last 720 hours. RDW: No results found for requested labs within last 720 hours. MCHC: No results found for requested labs within last 720 hours. MCH: No results found for requested labs within last 720 hours. MCV: No results found for requested labs within last 720 hours. Hct: No results found for requested labs within last 720 hours. Hgb: No results found for requested labs within last 720 hours. WBC: No results found for requested labs within last 720 hours. MPV: No results found for requested labs within last 720 hours. Platelets: No results found for requested labs within last 720 hours. RDW CV: No results found for requested labs within last 720 hours. RDW Sd: No results found for requested labs within last 720 hours. BMP Glucose: No results found for requested labs within last 720 hours. Calcium: No results found for requested labs within last 720 hours. Sodium: No results found for requested labs within last 720 hours. Potassium: No results found for requested labs within last 720 hours. CO2: No results found for requested labs within last 720 hours. Chloride: No results found for requested labs within last 720 hours. BUN: No results found for requested labs within last 720 hours. Creatinine: No results found for requested labs within last 720 hours. DOS Physical Exam Medical history, medications, and allergies reviewed. Attestation: With today's edits, I endorse the findings of the anesthesia pre-evaluation assessment dated: 07/17/2022. Airway Exam: Mallampati: II Cervical ROM: FROM Cardiovascular Exam: Rate: regular Rhythm: regular Pulmonary Exam: (Non-labored breathing) Dental Exam: Appears intact Current state: Patient's current state is cooperative. (A&Ox1) Anesthesia Plan ASA 3 My patient is approved for the Anesthesia Controlled Medication protocol when under care of a STEAM AND POWER SUPERVISOR Planned anesthesia: General Team communication plan: oral ET tube Induction: Induction: intravenous. Postoperative Plan: Postoperative administration opioids intended. No postoperative mechanical ventilation intended. Patient's planned disposition post procedure is Floor. Informed Consent: Discussed plan with STEAM AND POWER SUPERVISOR. Anesthesia plan and risks discussed with patient and healthcare power of personal injury attorney. Consent and Attending signature: I and/or my [...] Procedure Name Priority Date/Time Associated Diagnosis Comments DC AN PROCEDURE PLACEHOLDER Routine 07/17/2022 9:46 AM CDT DC AN ELECTIVE ENDOTRACHEAL AIRWAY Routine 07/17/2022 9:46 AM CDT documented in this encounter Results * DC AN ELECTIVE ENDOTRACHEAL AIRWAY, DC AN PROCEDURE PLACEHOLDER (07/17/2022 9:46 AM CDT) Narrative Kathleen Caceres CRNA - 07/17/2022 9:46 AM CDT Kathleen Caceres CRNA ? 07/17/2022 ??9:47 AM Airway Patient location: OR Urgency: elective Indications for airway management: anesthesia Difficult airway: no Staff: Supervising provider: Jair Hayes DO Placed by: STEAM AND POWER SUPERVISOR: Kathleen Caceres CRNA Emergent airway documentation: Risks and benefits discussed: yes Consent obtained: yes Consent given by: patient Airway prep: Preoxygenated: yes Patient position: sniffing Mask difficulty assessment: 2 - vent by mask + OA or adjuvant Sedation level during airway: GA Final airway details: Final airway type: endotracheal airway Tube type: ETT ETT size: 8.0 mm Cuffed: yes Technique used for successful ETT placement: video laryngoscopy Devices/Methods used in placement: stylet Insertion site: oral Blade type: Solange Video blade type: Gonzalez Blade size: 4 Cormack-Lehane (video): grade IIa - partial view of glottis Cuff volume: 10 mL Cuff inflated with: air ETT to teeth: 23 cm Placement verified by: auscultation and CO2 detection Airway secured with: silk tape Number of attempts: 1 Jair Hayes DO ANESTHESIA ORDERABLES Final Result documented in this encounter Visit Diagnoses Not on filedocumented in this encounter Administered Medications Inactive Administered Medications - up to 3 most recent administrations Medication Order MAR Action Action Date Dose Rate Site clindamycin (CLEOCIN) 900 mg/50 mL in dextrose 5% (premix) 900 mg 900 mg, intravenous, at 100 mL/hr, Administer over 30 Minutes, Every 8 hours scheduled, First dose on Sat07/17/22 at 0945, Indications: penicillin allergyIndications:penicillin allergy Given 07/17/2022 9:39 AM CDT 900 mg dexAMETHasone (DECADRON) 4 mg/mL injection intravenous, Administer over 2 Minutes, As needed, Starting on Sat07/17/22 at 0931, Anesthesia Intra-op Given 07/17/2022 9:31 AM CDT 4 mg fentaNYL (SUBLIMAZE) preservative free injection intravenous, As needed, Starting on Sat07/17/22 at 0931, Anesthesia Intra-op Given 07/17/2022 9:31 AM CDT 25 mcg heparin 1,000 unit/mL injection intravenous, As needed, Starting on Sat07/17/22 at 0956, Anesthesia Intra-op Given 07/17/2022 9:56 AM CDT 11,000 Units lidocaine (cardiac) (XYLOCAINE) preservative free injection intravenous, As needed, Starting on Sat07/17/22 at 0934, Anesthesia Intra-op, Indications: Ventricular ArrhythmiasIndications:Ventri cular Arrhythmias Given 07/17/2022 9:34 AM CDT 5 mL norepinephrine (LEVOPHED) injection intravenous, As needed, Starting on Sat07/17/22 at 0951, Anesthesia Intra-op Given 07/17/2022 10:03 AM CDT 16 mcg Given 07/17/2022 9:58 AM CDT 16 mcg Given 07/17/2022 9:51 AM CDT 8 mcg ondansetron (ZOFRAN) injection intravenous, Administer over 2 Minutes, As needed, Starting on Sat07/17/22 at 1014, Anesthesia Intra-op Given 07/17/2022 10:14 AM CDT 4 mg phenylephrine (CON-SYNEPHRINE) 1 mg/10 mL (100 mcg/mL) in sodium chloride 0.9% (premix) intravenous, As needed, Starting on Sat07/17/22 at 0940, Anesthesia Intra-op Given 07/17/2022 9:40 AM CDT 100 mcg phenylephrine (CON-SYNEPHRINE) 25,000 mcg in sodium chloride 0.9% 250 mL (100 mcg/mL) infusion intravenous, Continuous PRN, Starting on Sat07/17/22 at 0940, Anesthesia Intra-op Rate/Dose Change 07/17/2022 9:51 AM CDT 0.6 mcg/kg/min 30.096 mL/hr New Bag 07/17/2022 9:40 AM CDT 0.4 mcg/kg/min 20.064 mL /hr propofoL (DIPRIVAN) 10 mg/mL IV intravenous, As needed, Starting on Sat07/17/22 at 0934, Anesthesia Intra-op Given 07/17/2022 9:34 AM CDT 100 mg rocuronium (ZEMURON) injection intravenous, As needed, Starting on Sat07/17/22 at 0936, Anesthesia Intra-op Given 07/17/2022 9:36 AM CDT 40 mg sodium chloride 0.9% infusion 15 mL/hr, intravenous, Continuous, Starting on Sat07/17/22 at 0900, Pre-Procedure (CV)Indications:Atrial fibrillation, unspecified type (HCC) New Bag 07/17/2022 9:29 AM CDT documented in this encounter Additional Health Concerns Infection Onset Date Last Indicated Resolved Time MDR gram neg/ESBL Comment:06/16/2021 IP Review - Pt with scrotal abscess, but is not actively draining (last documented draining on 06/14). Pt remains intubated so requires trach aspirate for isolation discontinuation. Provider notified. Amanda Walker RN 12/19/2019 12/19/2019 documented as of this encounter Care Teams Hydraulic Oil Tool Operator Relationship Specialty Start Date End Date Abiodun Novak MD [address] [place] [address] PCP - General Cardiology 06/13/22 05/09/23 Jean-Claude Crawford MD [address] [facility] [address] [place] [address] Family Medicine 04/12/20 Jessie Delvalle MD [address] [facility] [address] [place] [address] Orthopedic Surgery 07/07/21 Sandip Barone MD [address] [address] Consulting Physician Neurosurgery 07/07/21 documented as of this encounter
--- OUTSIDE RECORDS SUMMARY | 2024-04-08 10:33 | XMS_ITS | Encounter Summary ---
Author Organization [facility] Healthcare Address [address] [place] [address] Care Team Providers Care Horse Trekking Guide Name Role Phone Jean-Claude Crawford MD Unavailable [phone] Jessie Delvalle MD Unavailable + Sandip Barone MD Unavailable [phone] Abiodun Novak MD Primary Care Provider [phone] Reason for Visit * Reason Comments Weakness - Generalized Pt alert to self * Auth/Cert (Routine) Specialty Diagnoses / Procedures Referred By Contac t Referred To Contact Diagnoses Frequent falls Procedures NA Referral ID Status Reason Start Date Expiration Date Visits Re quested Visits Authorized [id number] 1 1 Encounter Details Date Type Department Care Team (Late st Contact Info) Description 07/29/2022 8:22 PM CDT - 08/03/2022 10:54 AM CDT Hospital Encounter [facility] IMU [address] [place] [address] Byron Torres MD [address] [place] [address] Brii Beverly MD [address] [place] [address] Genoveva Kumar MD [address] [place] [address] [place] [address] Janice Corea MD [address] [place] [address] Frequent falls (Primary Dx); Other closed nondisplaced fracture of proximal end of right humerus, initial encounter; Closed fracture of facial bone, unspecified facial bone, initial encounter ([facility]); Atrial fibrillation with RVR (CMS/HCC) ([facility]); Atrial fibrillation, unspecified type ([facility]); Closed 3-part fracture of proximal humerus, right, initial encounter Discharge Disposition: Discharge to SNF Social History Tobacco Use Types Packs/Day Years Used Date Smoking Tobacco: Every Day Cigarettes 59 Started: 1965 Smokeless Tobacco: Never Alcohol [...] place to sleep or slept in a jail (including now)? 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 Gender Identity Not on file Sexual Orientation Not on file documented as of this encounter Last Filed Vital Signs Vital Sign Reading Time Taken Comments Blood Pressure 134/86 08/03/2022 7:33 AM CDT Pulse 86 08/03/2022 7:33 AM CDT Temperature 36.6 ??C (97.9 ??F) 08/03/2022 7:33 AM CD T Respiratory Rate 18 08/03/2022 7:33 AM CDT Oxygen Saturation 93% 08/03/2022 9:02 AM CDT Inhaled Oxygen Concentration - - Weight 81.8 kg (180 lb 5.4 oz) 07/30/2022 11:47 AM CDT Height 167.6 cm (5' 6 ) 07/30/2022 11:47 AM CDT Body Mass Index 29.11 07/30/2022 11:47 AM CDT documented in this encounter Discharge Summaries * Janice Corea MD - 08/03/2022 7:50 AM CDT Inpatient Discharge Summary Patient Name - Jania Guajardo Patient Age - 72 yrs Patient - [id number] [facility] - [id number] Document Creation Date: 08/03/2022 Admitting Provider, : Brii Beverly MD Discharge Provider, : Janice Corea MD Primary Care Physician at Discharge: Abiodun Novak MD [phone] Admission Date: 07/29/2022 Discharge Date/time: 08/03/2022 Admission Location: [facility] LOS - LOS: 5 days DETAILS OF HOSPITAL STAY Hospital Problems/Diagnoses Principal Problem: Frequent falls Active Problems: Closed 3-part fracture of proximal humerus, right, initial encounter Reason for Hospitalization: Patient is a 72 y.o. man with dementia, HTN, HLD, COPD, chronic HFpEF, chronic atrial fibrillation s/p Watchman device placement on 07/17/2022, among other medical problems, who presents from [place] due to frequent falls. It is reported that he has had 3 falls within the past 24 hours. He was evaluated at [place] following the 1st 2 falls and noted to have a fracture of the right humerus and and fractures involving the right maxilla and lateral aspect of the right orbital wall. Following his 3rd fall, he was brought to our hospital. In the ER, he was in atrial fibrillation with RVR. RVR improved following administration of diltiazem 15 mg IV and diltiazem ER 120 mg p.o.. He was also given potassium chloride and magnesium sulfate. CXR and CXR of the right shoulder confirmed proximal right humeral fracture through the surgical neck. CT of the head showed no acute intracranial process but identified facial fractures as previously stated. Hospital Course: Right maxillary sinus fractures Incidentally found on CT head CT facial bones: Slightly depressed fracture of the lateral wall of the right maxillary sinus, unchanged. ENT consulted, CT was reviewed, and they do not think there is any fracture Nonoperative management Right periprosthetic shoulder fracture Ortho recommends no surgical intervention as pt is a poor surgical candidate given patient's dementia and inability to follow instructions. Continue sling, NWB to RUE, f/u with ortho as outpatient in 4 weeks Pain control, PT/OT Recurrent falls likely due to deconditioning - Orthostatic vitals negative, no infectious source found -Cardiology consulted- no intervention recommended - Telemetry monitoring done, no arrhythmias noted - Continue PT/OT Atrial fibrillation S/p Watchmen placement CHOLO (07/17/22): LVEF 50-60%, iatrogenic ASD due to septostomy, left atrial appendage occlusion device deployment Required some iv Cardizem to control HR. Cardiology was consulted, recommended to continue home regimen with Lopressor. HR has been well controlled for the past few days. F/u with cardiology as outpatient. Hypertension/hyperlipidemia HFpEF - Home regimen: amlodipine 5mg daily, ASA 81mg daily, atorvastatin 10mg daily, losartan 50mg BID, terazosin 10mg daily - Continue home regimen - Recent CHOLO as above - Repeat TTE without significant changes Anxiety/depression - Strict sleep hygiene - Ramelteon 8mg qHS - Trazodone 50mg qHS COPD, not in exacerbation - Symbicort BID - Nebs PRN GERD - Protonix 40mg daily Discharge Details Physical Exam at Discharge: Discharge Condition: stable Pulse: 86 Resp: 18 BP: 134/86 Temp: 36.6 ??C (97.9 ??F) Weight: 81.8 kg (180 lb 5.4 oz) Pertinent Exam Findings at Discharge: Gen: In no acute distress Head: Normocephalic, atraumatic; no tenderness of the face Eyes: Very small periorbital bruise at the lateral angle of the right eye Neck: No JVD, supple ENT: Moist oral mucosa Heart/CV: Irregular rhythm, normal HR, normal S1/S2, no murmur/gallop, no pedal edema Lungs/Resp: Non-labored breathing, CTAB Abdomen/GI: Non-distended, soft and nontender; normal bowel sounds : No CVA tenderness MSK: Right upper extremity is immobilized with a shoulder sling Neuro: Alert; oriented to person; knows he is in the hospital but can not tell the name or city; not oriented to time Skin: Intact Psych: Blunt affect Discharge Disposition: Code Status at Discharge: Full Code Active Issues & Recommended Plan for Follow-up: Follow up with PCP, cardiology and orthopedics Allergies: Penicillins Discharge Medications: Your medication list CHANGE how you take these medications Instructions Last Dose Given Next Dose Due losartan 50 mg tablet Doctor's comments: ND/SNF Location: [facility] (Esther Das) Commonly known as: THEE What changed: how much to take 100 mg, oral, Daily CONTINUE taking these medications Instructions Last Dose Given Next Dose Due acetaminophen 325 mg tablet Commonly known as: TYLENOL 650 mg, oral, Every 4 hours PRN albuterol 2.5 mg /3 mL (0.083 %) nebulizer solution 2.5 mg, nebulization, Every 6 hours PRN (respite provider) amLODIPine 5 mg tablet Commonly known as: NORVASC 5 mg, oral, Daily aspirin 81 mg enteric coated tablet 81 mg, oral, Daily atorvastatin 10 mg tablet Commonly known as: LIPITOR 10 mg, oral, Nightly cholecalciferol 5,000 unit tablet Commonly known as: VITAMIN D-3 5,000 Units, oral, Every [address] 250 mg EC tablet Commonly known as: DEPAKOTE 125 mg, oral, 3 times daily PRN fluticasone propion-salmeteroL 100-50 mcg/dose diskus inhaler Commonly known as: ADVAIR DISKUS 1 puff, inhalation, Daily, Rinse mouth with water after use. Do not swallow. folic acid 1 mg tablet Commonly known as: FOLVITE 1 mg, oral, Daily metoprolol 100 mg tablet Doctor's comments: NH/SNF Location: [facility] (Esther Das) Commonly known as: LOPRESSOR 100 mg, oral, [address] 40 mg EC tablet Commonly known as: PROTONIX 40 mg, oral, Daily ramelteon 8 mg tablet Commonly known as: ROZEREM 8 mg, oral, Nightly senna 8.6 mg tablet Commonly known as: SENOKOT 1 tablet, oral, 2 times daily terazosin 10 mg capsule Commonly known as: HYTRIN 10 mg, oral, Daily STOP taking these medications fluticasone furoate-vilanteroL 100-25 mcg/dose diskus inhaler Commonly known as: BREO ELLIPTA QUEtiapine 25 mg tablet Commonly known as: SEROquel THERA-M ORAL Where to Get Your Medications These medications were sent to [facility] [place], [place] - [address] [facility] [address] [facility] [address] losartan 50 mg tablet metoprolol 100 mg tablet Time Spent in Discharge Process: I have spent 33 minutes on discharge planning activities. Time spent was on Coordination of care, Follow up , Counselling with patient/family, discharge exam, and parent/patient education Test Results Pending at Discharge (If Blank, None Found): Operative Procedures Performed (If Blank, None Found): Outpatient Follow-Up: Future Appointments Date Time Provider Department Center 08/29/2022 9:30 AM [facility] CCL ANCILLARY PROCEDURE MBC CV PrRcv [facility] Main 08/29/2022 11:30 AM [facility] Specialty 04/17/2023 12:15 PM Abiodun Novak MD [facility] Specialty Contact Information for Follow-ups [facility] (Esther Das) [address] [place] [id number] Next Steps: Go today [facility] Next Steps: Follow up Questions: Please select the performing region: [facility] Please select the performing department: [facility] # of visits: 1 Referral Status: Pending Authorization Please schedule an appointment with the following provider(s): [facility] [address] [place] [id number] Go today [facility] ANCILLARY INFORMATION Other Procedures & Diagnostic Tests: Transthoracic Echo (TTE) Limited/Followup Result Date: 07/30/[address] [address] Limited EchocardiogramReport Patient Name: JANIA GUAJARDO : 1950 Study Date: 07/30/2022 3:11:27 PM Gender: M Tech: JEFFREY Location: [id number] Ref.Provider: STEVEN VELEZ ight(Cm): 180 BSA: 1.85 Weight(Kg): 68.5 Quality: Adequate Procedures: Echocardiographic Report: Limited transthoracic echocardiogram with 2D and M- Mode. Indications: hx atrial septostomy with iatrogenic ASD July 2022, left atrial appendage occlusion device placement. Measurements: Findings: Atrial Septum: The atrial septum is not well visualized. Aorta: Normal aortic root. Left Ventricle: Mild concentric left ventricular hypertrophy. Normal left ventricular size. Normal global left ventricular systolic function. Normal left ventricular diastolic function. Ejection fraction is visually estimated at 70 %. Left Atrium: There is mild enlargement of left atrium. Right Ventricle: Normal right ventricular size. Normal right ventricular systolic function. Right Atrium: The right atrium is normal in size. Mitral Valve: Normal structure of the mitral valve. Pulmonic Valve: Pulmonic valve not well visualized. Tricuspid Valve: Normal structure of the tricuspid valve. Pericardium: Normal pericardium with no significant pericardial effusion. Conclusions: Mild concentric left ventricular hypertrophy. Normal left ventricular size. Normal global left ventricular systolic function. Normal left ventricular diastolic function. Ejection fraction is visually estimated at 70 %. Normal right ventricular size. Normal right ventricular systolic function. There is mild enlargement of left atrium. The right atrium is normal in size. Electronically Signed By: Stanford Norton 2022-07-30 15:38:36 CDT CC: CC: CT Facial Bones WO Contrast Result Date: 07/30/2022 EXAM DESCRIPTION: CT FACIAL BONES WO CONTRAST REASON FOR STUDY: Facial fracture, follow up Fell yesterday, known orbit fracture TECHNIQUE: Noncontrast computed tomography images through the paranasalsinuses. Reconstructed MPR images reviewed. All images stored on PACS. Automated exposure control was used as a dose optimization technique for this examination. COMPARISON: 07/29/2022 FINDINGS: BONES: The slightly depressed fracture of the lateral wall of the right maxillary sinus is unchanged. Very small amount of subcutaneous emphysema is unchanged. SOFT TISSUES: No abscess. No inflammatory changes. SINUSES: A small amount of fluid and mucosal thickening in the right maxillary sinus is unchanged. NASAL CAVITY: Midline nasal septum. ORBITS: No significant abnormalities visualized. TMJ: A large amount of patient motion simulates fractures of the mandible. If a mandibular fracture is suspected clinically, CT of the mandible is recommended MASTOIDS: Well-aerated. IACs symmetric, grossly normal. BRAIN: Limited view. No acute findings. OTHER: No other significant finding. IMPRESSION: Slightly depressed fracture of the lateral wall of the right maxillary sinus, unchanged. Large amount of patient motion simulating fractures of the mandible. If a mandibular fracture is suspected clinically, CT of the mandible is recommended. THIS IS AN ELECTRONICALLY VERIFIED FINAL REPORT 07/30/2022 12:42 PM - Electronically signed by Anastacio Chakraborty M.D. JEFFREY: JEFFREY Report ID: [id number] Reading Location: [id number] ECG 12 lead Result Date: 07/30/2022 Vent Rate: 129 bpm RR Interval: 464 msec [place] Interval: 0 msec QRS Duration: 78 msec QT Interval: 315msec QTC Interval: 391 msec P-R-T [place]: 0 - 24 - -29 degrees ATRIAL FIBRILLATION WITH RAPID VENTRICULAR RESPONSE WITH ABERRANT CONDUCTION OR VENTRICULAR PREMATURE COMPLEXES LOW QRS VOLTAGE IN PRECORDIAL LEADS [QRS DEFLECTION < 1.0 mV IN CHEST LEADS] SEPTAL MYOCARDIAL INFARCTION , OF INDETERMINATE AGE [40+ ms Q WAVE IN V1/V2] ABNORMAL ECG Compared to prior EKG heart rate increased Electronically Signed By: Stanford Norton XR Chest 1 View Result Date: 07/29/2022 EXAM DESCRIPTION: XR CHEST 1 VIEW REASON FOR STUDY: general weakness, c/f pna Pt presents to ED s/pFALL AT RETIREMENT ALERT TO SELF ONLY STAFF STATES SECOND FALL THIS WEEK Patient is a 15-khca-iioljf with a history of dementia, hypertension, hyperlipidemia, heart failure with preserved ejectionfraction, and atrial fibrillation status post Watchman 07/17 now off anticoagulation who presents with recurrent falls. Apparently fell last night. Seen at [facility] and diagnosed with question proximal humerus fracture on right. Subsequently fell and was seen there again. Had yet another fall tonight prompting transfer here. Patient denies any current complaints but is unable to provide additional history secondary to dementia. TECHNIQUE: One radiographic view of the chest acquired. COMPARISON: None FINDINGS: LUNGS/PLEURA: No focal consolidation or pneumothorax. No pleural effusion. Elevation right hemidiaphragm with atelectasis at the right lung base. HEART/MEDIASTINUM: Heart size is normal. Normal mediastinal and hilar contours. HARDWARE/LINES/TUBES: None. BONES: Impacted fracture of the proximal right humerus. OTHER: No other significant finding. IMPRESSION: Impacted fracture of theproximal right humerus. THIS IS AN ELECTRONICALLY VERIFIED FINAL REPORT 07/29/2022 10:18 PM - Electronically signed by Bryson Owen M.D. KT: SOHAIL Report ID: [id number] Reading Location: [id number] XR Shoulder Right 2 or More Views Result Date: 07/29/2022 EXAM DESCRIPTION: XR SHOULDER RIGHT 2 OR MORE VIEWS REASON FOR STUDY: known fx, ?prox hum, c/f fx Pt presents to ED s/p FALL AT RETIREMENT ALERT TO SELF ONLY STAFF STATES SECOND FALL THIS WEEK Patient is a 72-year-old man with a history of dementia, hypertension, hyperlipidemia, heart failure with preserved ejection fraction, and atrial fibrillation status post Watchman 07/17 now off anticoagulat ion who presents with recurrent falls. Apparently fell last night. Seen at [facility] and diagnosed with question proximal humerus fracture on right. Subsequently fell and was seen there again. Had yet another fall tonight prompting transfer here. Patient denies any current complaints but is unable to provide additional history secondary to dementia. TECHNIQUE: Internal and external rotation views of the right shoulder were obtained. COMPARISON: None FINDINGS: BONES/JOINTS: There is an impacted fracture through the surgical neck of the proximal right humerus. Degenerative narrowing of the right glenohumeral joint. There is osteophytic spurring about the right acromioclavicular joint. SOFT TISSUES: Unremarkable. VISUALIZED RIBS AND LUNG: No significant finding. OTHER: No significant finding. IMPRESSION: Impacted fracture through the surgical neck of the proximal right humerus. THIS IS AN ELECTRONICALLY VERIFIED FINAL REPORT 07/29/2022 10:17 PM - Electronically signed by Bryson Owen M.D. KT: SOHAIL Report ID: [id number] Reading Location: [place] [address] CT Head WO Contrast Result Date: 07/29/2022 EXAM DESCRIPTION: CT HEAD WO CONTRAST REASON FOR STUDY: Head trauma, minor (Age => 66y) Pt arrived from senior care after a fall today. Unknown if pt hit head. Pt poor historian and confused. Prior fall one week ago. Hx of HTN, TIA TECHNIQUE: Axial images acquired through the brain without intravenous contrast. Images stored on PACS. Automated exposure control was used as a dose optimization technique for this examination. COMPARISON: 10/07/2021 FINDINGS: BRAIN: No hemorrhage, edema or masseffect. No recent infarct. Nonspecific periventricular and subcortical white matter hypoattenuationwhich can be seen as sequela of chronic small vessel ischemic disease. There is intraoperative appro priate cerebral volume loss with ex vacuo dilatation of the ventricular system, not substantially changed. No acute intraventricular hemorrhage. Basal cisterns are patent. EXTRA-AXIAL SPACES: No fluid collections. No masses. CALVARIUM: No acute calvarial fracture. SINUSES/MASTOIDS: There is an acute comminuted and mildly displaced fracture of the lateral wall of the right maxillary sinus possiblyextending to the posterior wall right maxillary sinus with locules of gas extending adjacent to right lateral orbital wall. There is a subtle cortical step-off along the lateral right orbital wall likely reflective of an acute minimally displaced fracture. There is mucosal thickening of the right maxillary sinus with superimposed small volume hemorrhage. Mild mucosal thickening of the ethmoid aircells. Otherwise, no fluid or mucosal thickening. ORBITS: No significant abnormality. There is mildright edna-maxillary facial contusion. IMPRESSION: 1. No acute intracranial findings. 2. Acute comminuted and mildly displaced fracture of the lateral wall right maxillary sinus possibly extending tothe posterior wall. Subtle cortical step-off along the lateral right orbital wall likely reflectiveof an acute minimally displaced fracture. 3. Mild right edna-maxillary facial contusion. THIS IS ANELECTRONICALLY VERIFIED FINAL REPORT 07/29/2022 9:46 PM - Electronically signed by Destiny Mullen M.D. AT: AT Report ID: [id number] Reading Location: [id number] Recent Labs: Recent Labs Lab Units 08/03/22 0634 08/02/22 0422 08/01/22 0309 WBC K/cumm 4.8 6.7 7.2 HEMOGLOBIN g/dL 9.1* 8.8* 9.1* HEMATOCRIT % 27.5* 26.2* 27.5* PLATELETS K/cumm 133* 125* 116* Recent Labs Lab Units 08/03/22 0634 08/02/22 0422 08/01/22 0309 07/31/22 0254 07/29/222027 WBC K/cumm 4.8 6.7 7.2 < > 8.3 HEMOGLOBIN g/dL 9.1* 8.8* 9.1* < > 10.8* HEMATOCRIT % 27.5* 26.2* 27.5* < > 31.9* PLATELETS K/cumm 133* 125* 116* < > 163 NEUTROS PCT % -- -- -- -- 77.9 LYMPHS PCT % -- -- -- -- 13.2 MONOS PCT % -- -- -- -- 7.6 EOS PCT % -- -- -- -- 0.7 < > = values in this interval not displayed. Recent Labs Lab Units 08/02/2242108/01/2230807/31/2225307/29/222027 SODIUM mmol/L -- -- 136 140 POTASSIUM PLASMA mmol/L -- -- 3.8 3.7 CHLORIDE mmol/L -- -- 102 104 CO2 mmol/L -- -- 26 26 BUN SERUM mg/dL -- -- 17 15 CREATININE mg/dL -- -- 0.97 0.69* HDN-QFC-VMKFTWV mL/min/1.73 m2 -- -- 83 99 GLUCOSE mg/dL -- -- 101 150 CALCIUM mg/dL -- -- 8.5 8.7 ALBUMIN g/dL -- -- -- 3.4* PHOSPHORUS PLASMA mg/dL 3.5 4.0 3.7 -- Recent Labs Lab Units 07/31/2225307/29/222027 SODIUM mmol/L 136 140 POTASSIUM PLASMA mmol/L 3.8 3.7 CHLORIDE mmol/L 102 104 CO2 mmol/L 26 26 ANIONGAP mmol/L 9 10 GLUCOSE mg/dL 101 150 BUN SERUM mg/dL 17 15 CREATININE mg/dL 0.97 0.69* CALCIUM mg/dL 8.5 8.7 ALBUMIN g/dL -- 3.4* ALK PHOS Units/L -- 110 ALT Units/L -- 55 AST Units/L -- 39 BILIRUBIN TOTAL mg/dL -- 0.6 Recent Labs Lab Units 07/29/222027 ALK PHOS Units/L 110 BILIRUBIN TOTAL mg/dL 0.6 TOTAL PROTEIN g/dL 5.8* ALT Units/L 55 AST Units/L 39 Recent Labs Lab Units 08/02/2242108/01/2230807/31/22253 MAGNESIUM mg/dL 1.8 1.9 2.2 Lab Results Component Value Date GLUCOSE 101 07/31/2022 GLUCOSE 150 07/29/2022 GLUCOSE 107 07/17/2022 Implant: Implants Left Atrial Appendage Occluder [employer] Marli Watchman Flx Procedure Device Wmflxperproc - S0 - [id number] - Implanted Atrial Appendage Inventory item: [employer] MARLI WATCHMAN FLX PROCEDURE DEVICE [id number] Model/Cat number:[id number] Serial number: 0 Linux Support Engineer: Keybroker Marli Lot number: [id number] As of 07/17/2022 Status: Implanted Type Not Specified [employer]Ortho [id number] 44cm 13mm Left Intertrochanter 130d 1.5mm Nail - [id number] - Implanted (Left) Femur Inventory item: DAS [employer] NEPHEW/RICHCO/ORTHO INTERTAN 44CM 13MM LEFT INTERTROCHANTER 130D 1.5MM NAIL [id number] Model/Cat number: [id number] Linux Support Engineer: [employer]Ortho As of 07/04/2021 Status: Implanted [employer] Intertan 4.5mm 95mm 90mm Lag Compression Integrated Interlocking [id number] - [id number] - Implanted (Left) Femur Inventory item: [employer] NEPHEW/RICHCO/ORTHO Intertan 4.5mm 95mm 90mm Lag Compression IntegratedInterlocking [id number] Model/Cat number: [id number] Linux Support Engineer: [employer]Ortho As of 07/04/2021 Status: Implanted [employer]Ortho [id number] 5mm 52.5mm Low Profile Internal Hex Femur Screw Bone Trigen - [id number] - Implanted (Left) Femur Inventory item: [employer] NEPHEW/RICH[employer]/ORTHO 5mm 52.5mm Low Profile Internal Hex Femur Screw Bone Trigen [id number] Model/Cat number: [id number] Linux Support Engineer: [employer]Ortho As of 07/04/2021 Status: Implanted [employer]/Ortho [id number] Trigen 5mm 62.5mm Low Profile Femur Screw Bone - [id number] - Implanted (Left) Femur Inventory item: [employer]/RICH[employer]/ORTHO Trigen 5mm 62.5mm Low Profile Femur Screw Bone [id number] Model/Cat number: [id number] Linux Support Engineer: [employer]Ortho As of 07/04/2021 Status: Implanted [employer]Ortho Intertan 11.5mm 20cm Trochanteric 125d Nail Intramedullary [id number] - Implanted (Right) Femur Inventory item: [employer]W/RICH[employer]/ORTHO Intertan 11.5mm 20cm Trochanteric 125d Nail Intramedullary [id number] Model/Cat number: [id number] Linux Support Engineer: [employer]Orth[employer] Lot number: [id number] Device identifier: [id number] Device identifier type: GS1 As of 10/08/2021 Status: Implanted [employer]Ortho Intertan 11mm 90mm Lag Subtrochanter Screw Bone Titanium [id number] - Implanted (Right) Femur Inventory item: D[employer] NEPHEW/RICHCO/ORTHO Intertan 11mm 90mm Lag Subtrochanter Screw Bone Titanium [id number] Model/Cat number: [id number] Linux Support Engineer: [employer]Ortho Lot number: [id number] Device identifier: [id number] Device identifier type: GS1 As of 10/08/2021 Status: Implanted Yousif Vascular Device Clsr Perclose Prostyle Sut-Mediatd Closure-Repair Sys [id number] - S0 - [id number] - Implanted Inventory item: YOUSIF VASCULAR DEVICE CLSR PERCLOSE PROSTYLE SUT-MEDIATD CLOSURE-REPAIR SYS 87097-52 Model/Cat number: [id number] Serial number: 0 Linux Support Engineer: [employer] Lot number: [id number] As of 07/17/2022 Status: Implanted Yousif [employer] Device Clsr Perclose Prostyle Sut-Mediatd Closure-Repair Sys 90767-10 - S0 - [id number] - Implanted Inventory item: YOUSIF VASCULAR DEVICE CLSR PERCLOSE PROSTYLE SUT-MEDIATD CLOSURE-REPAIR SYS 59928-43 Model/Cat number: [id number] Serial number: 0 Linux Support Engineer: [employer] Lot number: [id number] As of 07/17/2022 Status: Implanted General Precautions (If Blank, None Found): Weight Bearing Restrictions: Yes RLE Weight Bearing: Non-weight bearing Braces/Orthoses: Sling Weight Bearing Restrictions: Yes Isolation Status: Contact Nutritional Status and in-house recommendations: Dietary Orders (From admission, onward) Start Ordered 07/31/22 1341 Adult Diet Modified Consistency; Mechanical Soft; 2 GM Sodium Diet effective now Question Answer Comment ([facility]) Diet Type Modified Consistency Modified Consistency: Mechanical Soft Fat / Sodium Restriction: 2 GM Sodium 07/31/22 1340 Anticoagulation Indication: INR: 07/17/2022: 1.2 Warfarin Administrations (last 168 hours) None Oxygen Status: O2 Therapy for the past 12 hrs: O2 Therapy 08/03/22 0733 None (Room air) 08/03/22 0336 None (Room air) 08/02/22 2316 None (Room air) 08/02/222010 None (Room air) Wound Care Instructions Wound 06/27/21 MASD (Moisture associated skin damage) Perineum , buttocks (Active) Other Instructions Call provider for: Temperature -Temperature greater than 101 degrees F Call provider for: difficulty breathing or chest pain Call provider for: extreme fatigue Call provider for: hives Call provider for: persistent dizziness or light-headedness Call provider for: persistent nausea or vomiting Call provider for: redness, tenderness, or signs of infection (pain, swelling, redness, odor or green/yellow discharge around incision site) Call provider for: severe uncontrolled pain Call provider for: headache, visual disturbances, weakness and speech changes Active LDAs (If Blank, None Found): Peripheral IV 07/29/22 20 G Left;Posterior Wrist (Active) Placement Date/Time: 07/29/222029 Type: Angiocath Size (Gauge): 20 G Location Orientation: Left;Posterior Location: Wrist Patient Emergency Contact: Primary Emergency Contact: RAINE GUAJARDO Immunization Status at Discharge Immunization History Administered Date(s) Administered Influenza, Quadrivalent, High Dose, Preservative Free, Intrr 02/20/2020 Janice Corea MD documented in this encounter Discharge Instructions * Discharge Instructions* Ani Mcdonnell RN - 08/03/2022 8:05 AM CDT CODE STATUS: Full Code ALLERGIES: Penicillins WEIGHT: 81.8 kg ISOLATION: Contact, MDR gram neg/ESBL DIET: Mechanical soft, 2 gm Sodium FINGERSTICKS: none ACTIVITY: Moderate assistance with 2 people and walker OXYGEN: Room air TOUSSAINT CATHETER: none DRESSING CHANGES: none PHYSICAL THERAPY: yes OCCUPATIONAL THERAPY: yes THANK YOU for choosing our team to provide your health care. Your HEALTH AND SAFETY are important to us. We hope you feel your care on IMU was ALWAYS EXCELLENT! Please call IMU at [phone] if you have any questions regarding your care. Wishing you continued improvement during your recovery. Your Intermediate Care Unit Team * Discharge Instr - Diet* Kerri Pandey - 07/31/2022 1:30 PM CDT Continue to follow a Very Soft, Heart Healthy diet that is low in sodium, trans fat and saturated fat. Read the nutrition facts label on packages. Aim to eat less than 2,000mg sodium per day (about 500-700 mg per meal). Do not add salt to foods and avoid foods that are high sources of sodium, such as fast foods, fried/breaded foods, canned goods, deli meats and gravies/sauces. Additional resources available online from the [employer] at www.heart.org/en/healthy-living/healthy-eating Call [facility] Dietitian's office at [phone] for questions about your diet. If interested in nutrition counseling, ask your doctor for referral and call [phone] to make an appointment. documented in this encounter Medications at Time [...] tablet (1 mg total) by mouth daily metoprolol (LOPRESSOR) 100 mg tabletIndications :Atrial fibrillation, [...] capsule (10 mg total) by mouth daily losartan (COZAAR) 50 mg tablet Take 2 tablets (100 mg total) by mouth daily 60 tablet 11 08/03/[address] (PROTONIX) 40 mg EC tablet Take 1 tablet (40 mg total) by mouth daily 3 documented as of this encounter Ordered Prescriptions Prescription Sig Dispense Quantity Refills Last Filled Start Date End Date metoprolol (LOPRESSOR) 100 mg tabletIndications: Atrial fibrillation, unspecified type (HCC) Take 1 tablet (100 mg total) by mouth 2 (two) times a day 180 tablet 3 08/03/2022 losartan (COZAAR) 50 mg tablet Take 2 tablets (100 mg total) by mouth daily 60 tablet 11 08/03/2022 3 documented in this encounter Discharge Disposition Disposition Code Departure Means Destination Comment s Discharge to [facility] documented in this encounter Progress Notes * Kerri Pandey - 08/03/2022 8:57 AM CDT Nutrition Assessment Reason for Assessment: Follow Up Encounter Date: 08/03/22 8:57 AM Nutrition Assessment and Plan: Patient is a 72 y.o. male. Admit Dx: Atrial fibrillation with RVR ([facility]) ([facility]) [I48.91] Frequent falls [R29.6] Other closed nondisplaced fracture of proximal end of right humerus, initial encounter [S42.294A] Closed fracture of facial bone, unspecified facial bone, initial encounter ([facility]) [S02.92XA]. Admitted on 07/29/2022, current LOS is 5 days. Impression: Continued adequate intakes. Tolerating diet texture well. Current diet order: Adult Diet Modified Consistency; Mechanical Soft; 2 GM Sodium Adult Discharge Diet Pt intake is adequate. PO intakes: 75 - 100% Supplement Order: N/A Nutrition Diagnosis 1: Biting/Chewing difficulty Related to: Other (comment) (Severe Dental caries)Evidenced by: Poor dentition Interventions: Assess for nutrition changes Monitoring and Evaluation: Discharge plans, Labs, Plan of care, PO intake, Stool patterns, Weight changes Goals: Diet consistency appropriate for patient needs during stay, Continue adequate PO intakes Recommendations: Mechanical soft, 2 gm sodium diet Subjective Nutrition Focused Physical Exam: Previously completed during admission. Wt Readings from Last 10 Encounters: 07/30/22 81.8 kg (180 lb 5.4 oz) 07/17/22 83.6 kg (184 lb 4.9 oz) 04/17/22 79.4 kg (175 lb) 10/05/21 80.6 kg (177 lb 11.1 oz) 08/02/21 81.6 kg (180 lb) 07/07/21 89.7 kg (197 lb 12 oz) 06/24/21 85.8 kg (189 lb 2.5 oz) 06/18/21 85.8 kg (189 lb 2.5 oz) 01/25/21 91.6 kg (202 lb) 07/16/20 87.1 kg (192 lb) Adult Malnutrition Scoring Tool (MST) What diet do you follow at home?: Regular Have You Recently Lost Weight Without Trying?: Unsure Have you been eating poorly because of a decreased appetite?: No Malnutrition Screening Tool (MST) Score: 2 Estimated needs: Total Kcal/kg Estimated Needs : 1636 based on Kcal/k. Type of Weight Used for Estimated Kcals:Current Total Protein Estimated Needs (gm): 81.8 Protein Needs Based on g/k.0 Type of Weight Used for Estimated Protein : Current. Total Fluid Estimated Needs: 1636 Fluid Needs Based on : 1 ml/kcal. . Objective Anthropometrics Weight: 81.8 kg (180 lb 5.4 oz) Admission Weight : 81.8 kg Weight Change: -1.79 kg (-3.96 lbs) IBW/kg (Calculated) : 64.4 kg Height: 167.6 cm (5' 6 ) Weight in (lb) to have BMI = 25: 154.6 BMI (Calculated): 29.1 BMI Classification: BMI 25.0 - 29.9 Overweight 3 Day I/O Summary 08/01 1899 - 08/03 0659 In: 730 [P.O.:720; I.V.:10] Out: 1974 [Urine:1974] Temp: 36.6 ??C (97.9 ??F) Past Medical History: Diagnosis Date Acute cholecystitis Alcohol use Anxiety Atrial fibrillation (CMS/HCC) (HCC) Blind legally blind BPH (benign prostatic hyperplasia) BPH (benign prostatic hyperplasia) CHF (congestive heart failure) (CMS/HCC) (HCC) CHF (congestive heart failure) (CMS/HCC) (HCC) Cholecystitis Chronic anemia COPD (chronic obstructive pulmonary disease) (HCC) GERD (gastroesophageal reflux disease) 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 HTN (hypertension) Hyperlipidemia Hypertension TIA (transient ischemic attack) Vitamin D deficiency Medications and Lab Review: Scheduled Meds: amLODIPine, 5 mg, oral, Daily aspirin, 81 mg, oral, Daily atorvastatin, 10 mg, oral, Nightly budesonide-formoteroL, 2 puff, inhalation, BID (RT) clopidogreL, 75 mg, oral, Daily enoxaparin, 40 mg, subcutaneous, Daily-2100 losartan, 100 mg, oral, Daily metoprolol, 100 mg, oral, BID pantoprazole DR, 40 mg, oral, Daily polyethylene glycol, 17 g, oral, Daily ramelteon, 8 mg, oral, Nightly senna-docusate, 2 tablet, oral, BID sodium chloride 0.9%, 0.5-20 mL, intra-catheter, Q8H MONET terazosin, 10 mg, oral, Nightly traZODone, 50 mg, oral, Nightly Continuous Infusions: Phosphorus, pl Date Value Ref Range Status 08/02/2022 3.5 2.3 - 4.5 mg/dL Final Magnesium Date Value Ref Range Status 08/02/2022 1.8 1.4 - 2.5 mg/dL Final Lab Results Component Value Date HGBA1C 5.2 06/12/2021 No results found for: GLUCOSE Nursing Assessment: Lew Scale Score: 17 Skin Integrity: Bruising Diet Instructions Adult Discharge Diet Diet Type: Return to previous diet Continue to follow a Very Soft, Heart Healthy diet that is low in sodium, trans fat and saturated fat. Read the nutrition facts label on packages. Aim to eat less than 2,000mg sodium per day (about 500-700 mg per meal). Do not add salt to foods and avoid foods that are high sources of sodium, such as fast foods, fried/breaded foods, canned goods, deli meats and gravies/sauces. Additional resources available online from the [employer] at www.heart.org/en/healthy-living/healthy-eating Call [facility] Dietitian's office at [phone] for questions about your diet. If interested in nutrition counseling, ask your doctor for referral and call [phone] to make an appointment. Nutrition Follow-Up : 08/08/22 PHILLIP Eugene RDN * Serina Silverman, AUDIT LEAD - 08/03/2022 8:48 AM CDT Physical Therapy 08/03/22 0815 PT Last Visit Session Type Treatment Safe Environment Patient found in supine;Gait belt utilized for all out of bed mobility;Session completed bedside Pain Assessment Pain Location Arm Pain Orientation Right Cognition Overall Cognitive Status Impaired Arousal/Alertness Alert;Delayed responses to stimuli Orientation Oriented to person Bed Mobility 1 Bed Mobility From 1 Supine Bed Mobility Type 1 To Bed Mobility to 1 Edge of bed Level of Assistance 1 Moderate Assist Bed Mobility Comments 1 pt is nwb rt ue and in a sling Transfer 1 Transfer From 1 Bed;Sit Transfer Type 1 To and from Transfer to 1 Stand Technique 1 Sit to stand;Stand to sit Transfer Device 1 Hand held assist Transfer Level of Assistance 1 Moderate Assist;Maximum Assist Ambulation 1 Distance (ft) 1 2-3 steps to chair Device 1 No device;Hand held assist (pivot to chair) Assistance 1 Maximum Assist Gait: Requires assist with 1 Maintaining balance Gait: Requires verbal cues to 1 Increase step length;Improve upright posture Safe Environment End of Therapy Session Safe Environment End of Therapy Session Patient left in chair;Chair alarm in place and activated;Call light within reach;Overbed table within reach Assessment Prognosis Fair Problem List Decreased strength;Decreased range of motion;Decreased endurance;Impaired balance;Decreased mobility Plan Plan If this is the last note, consider this the discharge summary Recommendation/Plan PT Recommendation/Plan Longterm Facility Patient at high risk for Falls;Readmission;Injury due to decreased ability to care for self;Injury due to reduced functional status;Injury due to balance deficits;Injury due to impaired cognition Recommend SNF due to Risk of injury at home;Unable to safely care for self in the home;Skilled therapy needed to address care for self in the home;Skilled therapy needed to address functional deficits;Skilled therapy needed for patient to return to prior level of independence * Candis Ferreira LCSW - 08/03/2022 7:42 AM CDT 08/03/22 0732 Discharge Summary Chart reviewed For Medical Necessity Does patient have a planned readmission to hospital planned? No Discharge Disposition assisted facility Specify Facility [facility] Contact Number Dianne: [phone]; Facility #: [phone]; Report #: [phone]; Fax #: [phone] Discharge Additional Assistance Does the patient need discharge transport arranged? Yes Has discharge transport been arranged? No Details of Transportation [facility] may be able to transport if pt is DC before 1400 hours. D/C Transport Anticipated Date 08/03/22 AMARJIT confirmed with Dianne that pt can be admitted to [facility] today 08/03/22. AMARJIT spoke with pt's MedPOA/ex-, Raine Guajardo, 08/02/22, who was agreeable to this DC. AMARJIT has made arrangements with Raine to meet on Saturday so Raine can send clothing and pt belonging's with AMARJIT to [facility] when SW attends work on Saturday. also printed and will provide Raine a map and turn by turn directions from [place] to [facility] so Raine can visit pt during his rehab. * Echo Bone COTA - 08/02/2022 3:42 PM CDT Occupational Therapy 08/02/22 0939 General Session Type Treatment OT Received On 08/02/22 Safe Environment Arm band checked;Patient found in supine Subjective Agreeable to Therapy Precautions Precautions Fall risk Weight Bearing Restrictions Yes RLE Weight Bearing NWB Braces/Orthoses Sling Pain Assessment Pain Assessment No/denies pain All Joints - ROM/Strength - Right R Motion All Joints AAROM R Position All Joints Supine (HOB elevated) R Weight/Reps/Sets All Joints 1 set x 10 reps for all joints elbow > hand. Pt demos difficulty with opposition/reposition to digits IV and V Cognition Overall Cognitive Status Impaired Arousal/Alertness Alert Orientation Oriented to person Positioning Bed Positioning Equipment Pillow(s) Other Comments Comments Pt declines bed mobility and all ADLs Safe Environment End of Therapy Session Safe Environment End of Therapy Session Patient left supine in bed Plan Plan Continue with current plan;If this is the last note, consider this the discharge summary Recommendation/Plan OT Recommendation Longterm Facility Patient at high risk for Falls;Injury due to decreased ability to care for self;Readmission;Injury due to reduced functional status;Injury due to impaired cognition;Developing impaired skin integrity;Injury at home as patient has not returned to prior level of function Recommend SNF due to Risk of injury at home;Unable to safely care for self in the home;Skilled therapy needed to address care for self in the home;Skilled therapy needed to address functional deficits;Skilled therapy needed for patient to return to prior level of independence Treatment/Interventions during current admission Range of motion;Therapeutic exercise * Serina Silverman, AUDIT LEAD - 08/02/2022 2:55 PM CDT Physical Therapy 08/02/22 1327 PT Last Visit Session Type Treatment Safe Environment Arm band checked;Patient found in supine;Session completed bedside Additional Pertinent History fx rt arn nwb in sling Pain Assessment Pain Assessment No/denies pain Supine Supine-Exercises Bilateral;Lower extremity Reps/Sets 10 Safe Environment End of Therapy Session Safe Environment End of Therapy Session Patient left supine in bed;Bed alarm in place and activated;Call light within reach;Overbed table within reach Assessment Prognosis Fair Problem List Decreased strength;Decreased range of motion;Decreased endurance;Impaired balance;Decreased mobility Plan Plan If this is the last note, consider this the discharge summary Recommendation/Plan PT Recommendation/Plan Longterm Facility Patient at high risk for Falls;Readmission;Injury due to decreased ability to care for self;Injury due to reduced functional status;Injury due to balance deficits * Janice Corea MD - 08/02/2022 11:00 AM CDT General Medicine Daily Progress SUBJECTIVE Patient is a 72 y.o. man with dementia, HTN, HLD, COPD, chronic HFpEF, chronic atrial fibrillation s/p Watchman device placement on 07/17/2022, among other medical problems. He presents from a senior care with report of recurrent falls. Per the patient, ???I fell again, at home. I was putting some stuff away in the closet. The next thing I know, I hit my head. ?I could not pop up. I just laid there. ?? Beyond these, the patient could not provide further details. It is reported that he has had 3 falls within the past 24 hours. He was evaluated at [place] following the 1st 2 falls and noted to have a fracture of the right humerus and and fractures involving the right maxilla and lateral aspect of the right orbital wall. Following his 3rd fall, he was brought to our hospital. In the ER, he was in atrial fibrillation with RVR. RVR improved following administration of diltiazem 15 mg IV and diltiazem ER 120 mg p.o.. He was also given potassium chloride and magnesium sulfate. CXR and CXR of the right shoulder confirmed proximal right humeral fracture through the surgical neck. CT of the head showed no acute intracranial process but identified facial fractures as previously stated. Interval History: No acute events overnight. Patient is awake and alert, stated he did not have pain in his right shoulder- as long as he did not move it. Seen by orthopedics today- and pt deemed a poor surgical candidate given dementia and inability to follow instructions. Pending placement at SNF. OBJECTIVE Vitals: 24hr Min/Max: Temp Min: 36.2 ??C (97.1 ??F) Max: 36.7 ??C (98.1 ??F) Pulse Min: 78 Max: 99 BP Min: 113/65 Max: 138/93 Resp Min: 16 Max: 20 SpO2 Min: 95 % Max: 98 % Most Recent : Vitals: 08/02/22 1448 BP: 126/80 Pulse: 88 Resp: 18 Temp: 36.6 ??C (97.9 ??F) SpO2: 98% I/O last 2 completed shifts: In: 840 [P.O.:840] Out: 700 [Urine:700] I/O this shift: In: 360 [P.O.:360] Out: 475 [Urine:475] Physical Exam: Gen: In no acute distress Head: Normocephalic, atraumatic; no tenderness of the face Eyes: Very small periorbital bruise at the lateral angle of the right eye Neck: No JVD, supple ENT: Moist oral mucosa Heart/CV: Irregular rhythm, normal HR, normal S1/S2, no murmur/gallop, no pedal edema Lungs/Resp: Non-labored breathing, CTAB Abdomen/GI: Non-distended, soft and nontender; normal bowel sounds : No CVA tenderness MSK: Right upper extremity is immobilized with a shoulder sling Neuro: Alert; oriented to person; knows he is in the hospital but can not tell the name or city; not oriented to time Skin: Intact Psych: Blunt affect Lab/Current Medication Review: Recent Results (from the past 24 hour(s)) CBC without differential Collection Time: 08/02/22 4:22 AM Result Value Ref Range WBC 6.7 3.8 - 9.9 K/cumm Hgb 8.8 (L) 13.0 - 17.5 g/dL Hct 26.2 (L) 38.9 - 50.3 % Plt 125 (L) 150 - 400 K/cumm MPV 10.5 9.1 - 12.3 fL RBC 2.69 (L) 4.30 - 5.80 M/cumm MCV 97.4 (H) 81.3 - 96.4 fL MCH 32.7 27.1 - 33.3 pg MCHC 33.6 32.3 - 35.7 g/dL RDW CV 13.5 11.1 - 14.9 % RDW SD 47.6 35.7 - 48.1 fL NRBC abs 0.00 0.00 - 0.01 K/cumm Magnesium Collection Time: 08/02/22 4:22 AM Result Value Ref Range Magnesium 1.8 1.4 - 2.5 mg/dL Phosphorus Collection Time: 08/02/22 4:22 AM Result Value Ref Range Phosphorus, pl 3.5 2.3 - 4.5 mg/dL Iron profile w/ IBC Collection Time: 08/02/22 4:22 AM Result Value Ref Range Iron 47 (L) 50 - 150 mcg/dL TIBC 208 (L) 250 - 400 mcg/dL Transferrin saturation 23 20 - 50 % Transthoracic Echo (TTE) Limited/Followup Result Date: 07/30/2022 Narrative: [address] [address] Limited Echocardiogram Report Patient Name: JANIA GUAJARDO : 1950 Study Date: 07/30/2022 3:11:27 PM Gender: M Tech: JEFFREY Location: [place] [address] Ref.Provider: STEVEN VELEZ Height(Cm): 180 BSA: 1.85 Weight(Kg): 68.5 Quality: Adequate Procedures: EchocardiographicReport: Limited transthoracic echocardiogram with 2D and M- Mode. Indications: hx atrial septostomy with iatrogenic ASD July 2022, left atrial appendage occlusion device placement. Measurements: Findings: Atrial Septum: The atrial septum is not well visualized. Aorta: Normal aortic root. Left Ventricle: Mild concentric left ventricular hypertrophy. Normal left ventricular size. Normal global leftventricular systolic function. Normal left ventricular diastolic function. Ejection fraction is visually estimated at 70 %. Left Atrium: There is mild enlargement of left atrium. Right Ventricle: Normal right ventricular size. Normal right ventricular systolic function. Right Atrium: The right atrium is normal in size. Mitral Valve: Normal structure of the mitral valve. Pulmonic Valve: Pulmonic valve not well visualized. Tricuspid Valve: Normal structure of the tricuspid valve. Pericardium: Normal pericardium with no significant pericardial effusion. Conclusions: Mild concentric left ventricular hypertrophy. Normal left ventricular size. Normal global left ventricular systolic function. Normal left ventricular diastolic function. Ejection fraction is visually estimated at 70 %. Normal right ventricular size. Normal right ventricular systolic function. There is mild enlargement of left at rium. The right atrium is normal in size. Electronically Signed By: Stanford Vang 2022-07-30 15:38:36 CDT CC: CC: CT Facial Bones WO Contrast Result Date: 07/30/2022 Narrative: EXAM DESCRIPTION: CT FACIAL BONES WO CONTRAST REASON FOR STUDY: Facial fracture, follow up Fell yesterday, known orbit fracture TECHNIQUE: Noncontrast computed tomography images through the paranasal sinuses. Reconstructed MPR images reviewed. All images stored on PACS. Automated exposure control was used as a dose optimization technique for this examination. COMPARISON: 07/29/2022 FINDINGS: BONES: The slightly depressed fracture of the lateral wall of the right maxillary sinus is unchanged. Very small amount of subcutaneous emphysema is unchanged. SOFT TISSUES: No abscess. No inflammatory changes. SINUSES: A small amount of fluid and mucosal thickening in the right maxillary sinus is unchanged. NASAL CAVITY: Midline nasal septum. ORBITS: No significant abnormalities visualized. TMJ: A large amount of patient motion simulates fractures of the mandible. If a mandibular fracture is suspected clinically, CT of the mandible is recommended MASTOIDS: Well-aerated. IACs symmetric,grossly normal. BRAIN: Limited view. No acute findings. OTHER: No other significant finding. IMPRESSION: Slightly depressed fracture of the lateral wall of the right maxillary sinus, unchanged. Largeamount of patient motion simulating fractures of the mandible. If a mandibular fracture is suspected clinically, CT of the mandible is recommended. THIS IS AN ELECTRONICALLY VERIFIED FINAL REPORT 07/30/2022 12:42 PM - Electronically signed by Anastacio MURPHY: JEFFREY Report ID: [id number] Reading Location: [place] [address] ECG 12 lead Result Date: 07/30/2022 Narrative: Vent Rate: 129 bpm RR Interval: 464 msec [place] Interval: 0 msec QRS Duration: 78 msec QT Interval: 315 msec QTC Interval: 391 msec P-R-T [place]: 0 - 24 - -29 degrees ATRIAL FIBRILLATION WITH RAPID VENTRICULAR RESPONSE WITH ABERRANT CONDUCTION OR VENTRICULAR PREMATURE COMPLEXES LOW QRS VOLTAGEIN PRECORDIAL LEADS [QRS DEFLECTION < 1.0 mV IN CHEST LEADS] SEPTAL MYOCARDIAL INFARCTION , OF INDETERMINATE AGE [40+ ms Q WAVE IN V1/V2] ABNORMAL ECG Compared to prior EKG heart rate increased Electronically Signed By: Stanford Norton XR Chest 1 View Result Date: 07/29/2022 Narrative: EXAM DESCRIPTION: XR CHEST 1 VIEW REASON FOR STUDY: general weakness, c/f pna Pt presents to ED s/p FALL AT RETIREMENT ALERT TO SELF ONLY STAFF STATES SECOND FALL THIS WEEK Patient is a 72-year-old man with a history of dementia, hypertension, hyperlipidemia, heart failure with preserved ejection fraction, and atrial fibrillation status post Watchman 07/17 now off anticoagulation who presents with recurrent falls. Apparently fell last night. Seen at [facility] and diagnosed with question proximal humerus fracture on right. Subsequently fell and was seen there again. Had yet another fall tonight prompting transfer here. Patient denies any current complaints but is unable to provide additional history secondary to dementia. TECHNIQUE: One radiographic view of the chest acquired.COMPARISON: None FINDINGS: LUNGS/PLEURA: No focal consolidation or pneumothorax. No pleural effusion. Elevation right hemidiaphragm with atelectasis at the right lung base. HEART/MEDIASTINUM: Heart size is normal. Normal mediastinal and hilar contours. HARDWARE/LINES/TUBES: None. BONES: Impacted fracture of the proximal right humerus. OTHER: No other significant finding. IMPRESSION: Impacted fracture of the proximal right humerus. THIS IS AN ELECTRONICALLY VERIFIED FINAL REPORT 07/29/2022 10:18 PM - Electronically signed by Bryson Owen M.D. KT: SOHAIL Report ID: [id number] Reading Location: [id number] XR Shoulder Right 2 or More Views Result Date: 07/29/2022 Narrative: EXAM DESCRIPTION: XR SHOULDER RIGHT 2 OR MORE VIEWS REASON FOR STUDY: known fx, ?prox hum, c/f fx Pt presents to ED s/p FALL AT RETIREMENT ALERT TO SELF ONLY STAFF STATES SECOND FALL THIS WEEK Patient is a 72-year-old man with a history of dementia, hypertension, hyperlipidemia, heart failure with preserved ejection fraction, and atrial fibrillation status post Watchman 07/17 now off a nticoagulation who presents with recurrent falls. Apparently fell last night. Seen at [facility] and diagnosed with question proximal humerus fracture on right. Subsequently fell and was seen there again. Had yet another fall tonight prompting transfer here. Patient denies any current complaints but is unable to provide additional history secondary to dementia. TECHNIQUE: Internal and external rotation views of the right shoulder were obtained. COMPARISON: None FINDINGS: BONES/JOINTS: There is an impacted fracture through the surgical neck of the proximal right humerus. Degenerative narrowingof the right glenohumeral joint. There is osteophytic spurring about the right acromioclavicular joint. SOFT TISSUES: Unremarkable. VISUALIZED RIBS AND LUNG: No significant finding. OTHER: No significant finding. IMPRESSION: Impacted fracture through the surgical neck of the proximal right humerus.THIS IS AN ELECTRONICALLY VERIFIED FINAL REPORT 07/29/2022 10:17 PM - Electronically signed by Annika Owen M.D. KT: SOHAIL Report ID: [id number] Location: [id number] CT Head WO Contrast Result Date: 07/29/2022 Narrative: EXAM DESCRIPTION: CT HEAD WO CONTRAST REASON FOR STUDY: Head trauma, minor (Age => 66y) Pt arrived from senior care after a fall today. Unknown if pt hit head. Pt poor historian and confused. Prior fall one week ago. Hx of HTN, TIA TECHNIQUE: Axial images acquired through the brain without intravenous contrast. Images stored on PACS. Automated exposure control was used as a dose optimization technique for this examination. COMPARISON: 10/07/2021 FINDINGS: BRAIN: No hemorrhage, edema or mass effect. No recent infarct. Nonspecific periventricular and subcortical white matter hypoattenuation which can be seen as sequela of chronic small vessel ischemic disease. There is intraoperative appropriate cerebral volume loss with ex vacuo dilatation of the ventricular system, not substantially changed. No acute intraventricular hemorrhage. Basal cisterns are patent. EXTRA-AXIAL SPACES: No fluid collections. No masses. CALVARIUM: No acute calvarial fracture. SINUSES/MASTOIDS: Thereis an acute comminuted and mildly displaced fracture of the lateral wall of the right maxillary sinus possibly extending to the posterior wall right maxillary sinus with locules of gas extending adjacent to right lateral orbital wall. There is a subtle cortical step-off along the lateral right orbital wall likely reflective of an acute minimally displaced fracture. There is mucosal thickening of the right maxillary sinus with superimposed small volume hemorrhage. Mild mucosal thickening of the ethmoid air cells. Otherwise, no fluid or mucosal thickening. ORBITS: No significant abnormality. There is mild right edna-maxillary facial contusion. IMPRESSION: 1. No acute intracranial findings. 2.Acute comminuted and mildly displaced fracture of the lateral wall right maxillary sinus possibly ex tending to the posterior wall. Subtle cortical step-off along the lateral right orbital wall likelyreflective of an acute minimally displaced fracture. 3. Mild right edna-maxillary facial contusion.THIS IS AN ELECTRONICALLY VERIFIED FINAL REPORT 07/29/2022 9:46 PM - Electronically signed by Destiny Mullen M.D. AT: AT Report ID: [id number] Reading Location: [id number] ECG 12 lead Result Date: 07/17/2022 Narrative: Vent Rate: 67 bpm RR Interval: 885 msec NJ Interval: 0 msec QRS Duration: 89 msec QT Interval: 420 msec QTC Interval: 436 msec P-R-T [place]: 0 - 4 - -9 degrees ATRIAL FIBRILLATION ABNORMAL RHYTHM ECG Electronically Signed By: Clarence Wilkes MD CHOLO Guidance During Cardiac Structural Intvn [id number] Result Date: 07/17/2022 Narrative: [facility] [address] [place] [address] TRANSESOPHAGEAL ECHOCARDIOGRAM Patient Name: JANIA GUAJARDO A : 1950 Study Date: 07/17/2022 8:20:57 AM Gender: M Flo: RORY Location: [id number] Ref.Provider: PEDRO LUIS GOMEZ Height(Cm): 178 BSA: 2.01 Weight(Kg): 83.46 BP: 137/85Order Provider: PEDRO LUIS GOMEZ - Procedures: Transesophageal Echo Report: Transesophageal echocardiogram including 2D imaging, spectral doppler and color doppler was performed in the cardiac catheterization laboratory to support a structural procedure. The procedure was monitored with automatic blood pressure monitoring, ECG tracings, and pulse oximetry. Sedation was achieved by anesthesia using Propofol IV. The transesophageal probe was placed in the esophagus posterior to the heart without any complications. The patient tolerated the procedure well. Indications: Atrial fibrillation. Findings: BP: Blood pressure: 137/85 mmHg. Left Ventricle: Roughly low normal global left ventricular systolic function. Ejection Fraction is estimated at 50-60 %. Normal left ventricular cavity size. Right Ventricle: Normal right ventricular size. Normal right ventricular systolic function. Left Atrium: There is mild enlargement of the left atrium. LA Appendage: No TINY thrombus seen. During the case a left atrial appendage occlusion device was deployedin the left atrial appendage. It appears well-seated. There is no color Doppler flow around the device. Right Atrium: There is mild enlargement of the right atrium. Atrial Septum: Normal atrial septum at the start of the case. During the case atrial septostomy was performed resulting in an iatrogenic ASD at the end of the case. Predominant flow is [id number]. Mitral Valve: Normal appearance ofthe mitral valve. Trace mitral valve regurgitation. There is no evidence for significant mitral stenosis. Aortic Valve: Normal appearance and function of the aortic valve. Trileaflet aortic valve. Tricuspid Valve: Grossly normal appearing tricuspid valve. TR envelope inadequate to estimate RVSP. There is trace tricuspid regurgitation. Pulmonic Valve: Pulmonic valve not well visualized. No pulmonic stenosis. No evidence of pulmonic regurgitation. Pericardium: Small pericardial effusion. Aorta: Mild aortic root dilatation. Pulmonary Artery: Normal pulmonary artery size. Conclusions: 1. Roughly low normal global left ventricular systolic function. Ejection Fraction is estimated at 50-60 %. Normal left ventricular cavity size. 2. Normal right ventricular size. Normal right ventricular systolic function. 3. Normal atrial septum at the start of the case. During the case atrial septostomy was performed resulting in an iatrogenic ASD at the end of the case. Predominant flow is [id number]. 4. Small pericardial effusion. 5. Mild aortic root dilatation. 6. No TINY thrombus seen. During the case a left atrial appendage occlusion device was deployed in the left atrial appendage. It appears well-seated. There is no color Doppler flow around the device. Electronically Signed By: Donavan Valadez MD 2022-07-17 11:54:13 CDT CC: CC: Implantable Cardiac Device Result Date: 07/17/2022 Narrative: Images from the original result were not included. [facility] [place] [facility],[id number], [address] Watchman Left Atrial Appendage Occluder Placement Procedure Report 72 year old male with atrial fibrillation with elevated CHADSVASC score and elevated bleeding risk referred for Watchman device. Attending physicians: Pedro Luis Gomez MD Access:8F RFV ->14F for device placement Catheter:Pigtail Injection:Left atrial appendage Closure:Perclose Anticoagulation:[id number] Heparin Air Kerma:74 mGy Fluoro time:3.2 min Contrast:27 ml Optiray Sedation:general per anesthesia Procedural details: After risks, benefits, and alternatives to the procedure were explained to the patient, they agreed to proceed. After signing informed consent the patient was brought to the cardiac catheterization laboratory/hybrid OR. They were prepped and draped in sterile fashion. General anesthesia was used. Cholo guidance was the provided by Dr. Valadez. A 6F sheath was inserted into the right femoral vein using the modified Seldinger technique, micropuncture access, and ultrasound guidance. We then advanced the Versacross catheter and wire. We then performed transseptal puncture using this system and CHOLO guidance. We confirmed appropriate height for the Watchman system. We advanced the catheter across the intra-atrial septum and advanced the wire into the left superior pulmonary vein. Heparin was administered to achieve an ACT greater than 300. Using the stiff wire as a rail, we then advanced the Watchman sheath into the left atrium. Left atrial pressure was 11mm Hg. We removed the stiff wire and then advanced the pigtail catheter into the left atrial appendage. We maneuvered the sheath into the appendage, and performed angiography as well.Baseline width of the appendage was 21mm. We then advanced a 27mm Watchman FLX device and deployed it using CHOLO and fluoroscopic guidance in the TINY ostium. Post deployment measurements were taken, with 14-21% compression. There was 0mm leak visualized by CHOLO or angiography. We satisfied PASS criteria and the device was released with excellent positioning. The system was removed and the access site was closed with the perclose sutures. Final CHOLO showed well seated device and a small iatrogenic ASD (inherent to the procedure). There was no pericardial effusion noted at end of case. Patient was extubated and transferred to the PACU for further monitoring and care. A/P: Successful Watchman FLXprocedure with 27mm device deployed. Continue optimal medical therapy. Further management per the cardiology and medicine teams. Pedro Luis Gomez MD 07/17/22 10:13 AM Current Facility-Administered Medications Medication Dose Route Frequency Provider Last Rate Last Admin acetaminophen (TYLENOL) tablet 1,000 mg 1,000 mg oral Q6H PRN Byron Torres MD 1,000 mg at 08/01/222032 albuterol 2.5 mg /3 mL (0.083 %) nebulizer solution 2.5 mg 2.5 mg nebulization Q6H PRN (RT) Brii Beevrly MD amLODIPine (NORVASC) tablet 5 mg 5 mg oral Daily Brii Beverly MD 5 mg at 08/02/22957 aspirin enteric coated tablet 81 mg 81 mg oral Daily Steven Velez NP 81 mg at 08/02/22957 atorvastatin (LIPITOR) tablet 10 mg 10 mg oral Nightly Steven Velez NP 10 mg at 08/01/222032 budesonide-formoteroL (SYMBICORT) 80-4.5 mcg/actuation inhaler 2 puff 2 puff inhalation BID (RT) Steven Velez NP 2 puff at 08/01/221926 Carrier Fluids for Secondary Infusion - 0.9% Sodium Chloride 30 mL intravenous PRN Brii Beverly MD clopidogreL (PLAVIX) tablet 75 mg 75 mg oral Daily Steven Velez NP 75 mg at enoxaparin (LOVENOX) syringe 40 mg 40 mg subcutaneous Daily-2099 Byron Torres MD 40 mg at 08/01/222033 losartan (COZAAR) tablet 100 mg 100 mg oral Daily Brii Beverly MD 100 mg at 08/02/22957 metoprolol tartrate (LOPRESSOR) immediate release tablet 100 mg 100 mg oral BID Syeda Beverly MD 100 mg at 08/02/22957 ondansetron ODT (ZOFRAN-ODT) disintegrating tablet 4 mg 4 mg oral Q6H PRN Brii Beverly MD Or ondansetron (ZOFRAN) injection 4 mg 4 mg intravenous Q6H PRN Brii Beverly MD pantoprazole DR (PROTONIX) extended release tablet 40 mg 40 mg oral Daily AnokwBrii lentz MD 40 mg at 08/02/22957 polyethylene glycol (MIRALAX) packet 17 g 17 g oral Daily StephanieSteven gil NP 17 g at 08/02/22956 ramelteon (ROZEREM) tablet 8 mg 8 mg oral Nightly StephanieSteven gil NP 8 mg at 08/01/222032 senna-docusate (PERICOLACE) 8.6-50 mg per tablet 2 tablet 2 tablet oral BID StephanieSteven gil NP 2 tablet at 08/02/22957 sodium chloride (OCEAN) 0.65 % nasal spray 2 spray 2 spray each nostril Q2H PRN StephanieSteven gil NP sodium chloride 0.9% flush 0.5-20 mL 0.5-20 mL intra-catheter Q8H MONET Brii Beverly MD 10 mL at 08/02/22 0608 sodium chloride 0.9% flush 0.5-20 mL 0.5-20 mL intra-catheter PRN Brii Beverly MD terazosin (HYTRIN) capsule 10 mg 10 mg oral Nightly StephanieSteven gil NP 10 mg at 08/01/222032 traZODone (DESYREL) tablet 50 mg 50 mg oral Nightly StephanieSteven gil NP 50 mg at 08/01/222032 A/P: Right maxillary sinus fractures - Incidentally found on CT head - EOM intact - CT facial bones: Slightly depressed fracture of the lateral wall of the right maxillary sinus, unchanged. - ENT consulted, CT was reviewed, and they do not think there is any fracture - Nonoperative management - HOB >30 degrees - Sinus precautions - [place] spray q2hr Right periprosthetic shoulder fracture - Orthopedic surgery consulted - Sling to RUE - NWB RUE pending further recommendations - 08/01: Continue to await consultation/recommendations - 08/02- ortho recommends no surgical intervention as pt is a poor surgical candidate given patient's dementia and inability to follow instructions. Continue sling, NWB to RUE, f/u with ortho as outpatient in 4 weeks - Pain control, PT/OT Recurrent falls - Orthostatic vitals negative - Telemetry monitoring - UA negative - PT/OT evaluations Atrial fibrillation S/p Watchmen placement - Home regimen: metoprolol 100mg BID, ASA 81mg daily, Plavix 75mg daily - CHOLO (07/17/22): LVEF 50-60%, iatrogenic ASD due to septostomy, left atrial appendage occlusion device deployment - 07/29: HR elevated overnight, diltiazem IV x1 given - 07/30: HR intermittently elevated, resumed home metoprolol, Mg 1.8, 2g repleted - Cardiology consulted - Telemetry monitoring - Continue home regimen - 08/01: HR controlled, cardiology signed off -08/02 Heart rate well controlled on current regimen with Lopressor Hypertension/hyperlipidemia HFpEF - Home regimen: amlodipine 5mg daily, ASA 81mg daily, atorvastatin 10mg daily, losartan 50mg BID, terazosin 10mg daily - Continue home regimen - Recent CHOLO as above - Repeat TTE without significant changes - VS q4hr Anxiety/depression - Strict sleep hygiene - Ramelteon 8mg qHS - Trazodone 50mg qHS COPD, not in exacerbation - Symbicort BID - Nebs PRN - Goal SpO2 88-92% GERD - Protonix 40mg daily DVT ppx: lovenox Disposition: Pending placement at [facility] My total encounter time on 08/02/2022 was 28 minutes which was spent in the activities documented inthe note. This includes time spent prior to the visit and after the visit in direct care of the patient. This time does not include time spent in any separately reportable services. Principal Problem: Frequent falls Active Problems: Closed 3-part fracture of proximal humerus, right, initial encounter Resolved Problems: No resolved hospital problems. Janice Corea MD 08/02/2022 3:28 PM * Steven Velez, PRESS OFFBEARER - 08/01/2022 1:07 PM CDT General Medicine Daily Progress SUBJECTIVE Patient is a 72 y.o. man with dementia, HTN, HLD, COPD, chronic HFpEF, chronic atrial fibrillation s/p Watchman device placement on 07/17/2022, among other medical problems. He presents from a senior care with report of recurrent falls. Per the patient, ???I fell again, at home. I was putting some stuff away in the closet. The next thing I know, I hit my head. ?I could not pop up. I just laid there. ?? Beyond these, the patient could not provide further details. It is reported that he has had 3 falls within the past 24 hours. He was evaluated at [place] following the 1st 2 falls and noted to have a fracture of the right humerus and and fractures involving the right maxilla and lateral aspect of the right orbital wall. Following his 3rd fall, he was brought to our hospital. In the ER, he was in atrial fibrillation with RVR. RVR improved following administration of diltiazem 15 mg IV and diltiazem ER 120 mg p.o.. He was also given potassium chloride and magnesium sulfate. CXR and CXR of the right shoulder confirmed proximal right humeral fracture through the surgical neck. CT of the head showed no acute intracranial process but identified facial fractures as previously stated. Interval History: No acute events overnight. Patient sitting up in chair, alert and interactive today. Hospitalist team continues to await consult/recommendations from orthopedic surgery. Patient dispo pending recommendations. Tolerating diet, having bowel movements. 07/31: Admitted to the floor yesterday from the ED. Very flat affect this AM. Would open eyes and occasionally answer questions, but then went stopped participating and went back to sleep. Denied complaints this AM. Will obtaine rHCT to rule out a delayed bleed. Pending Orthopedics recs for periprosthetic shoulder fx. OSVS ordered. TTE without significant findings. OBJECTIVE Vitals: 24hr Min/Max: Temp Min: 35.6 ??C (96 ??F) Max: 36.2 ??C (97.1 ??F) Pulse Min: 73 Max: 101 BP Min: 98/62 Max: 130/92 Resp Min: 20 Max: 22 SpO2 Min: 92 % Max: 100 % Most Recent : Vitals: 08/01/22 1128 BP: 98/62 Pulse: 96 Resp: 20 Temp: (!) 35.6 ??C (96 ??F) SpO2: 100% I/O last 2 completed shifts: In: 600 [P.O.:600] Out: 1300 [Urine:1300] I/O this shift: In: 240 [P.O.:240] Out: - Physical Exam: Gen: In no acute distress Head: Normocephalic, atraumatic; no tenderness of the face Eyes: Very small periorbital bruise at the lateral angle of the right eye Neck: No JVD, supple ENT: Moist oral mucosa Heart/CV: Irregular rhythm, normal HR, normal S1/S2, no murmur/gallop, no pedal edema Lungs/Resp: Non-labored breathing, CTAB Abdomen/GI: Non-distended, soft and nontender; normal bowel sounds : No CVA tenderness MSK: Right upper extremity is immobilized with a shoulder sling Neuro: Alert; oriented to person; knows he is in the hospital but can not tell the name or city; not oriented to time Skin: Intact Psych: Blunt affect Lab/Current Medication Review: Recent Results (from the past 24 hour(s)) CBC without differential Collection Time: 08/01/22 3:09 AM Result Value Ref Range WBC 7.2 3.8 - 9.9 K/cumm Hgb 9.1 (L) 13.0 - 17.5 g/dL Hct 27.5 (L) 38.9 - 50.3 % Plt 116 (L) 150 - 400 K/cumm MPV 10.8 9.1 - 12.3 fL RBC 2.76 (L) 4.30 - 5.80 M/cumm MCV 99.6 (H) 81.3 - 96.4 fL MCH 33.0 27.1 - 33.3 pg MCHC 33.1 32.3 - 35.7 g/dL RDW CV 13.5 11.1 - 14.9 % RDW SD 48.5 (H) 35.7 - 48.1 fL NRBC abs 0.00 0.00 - 0.01 K/cumm Magnesium Collection Time: 08/01/22 3:09 AM Result Value Ref Range Magnesium 1.9 1.4 - 2.5 mg/dL Phosphorus Collection Time: 08/01/22 3:09 AM Result Value Ref Range Phosphorus, pl 4.0 2.3 - 4.5 mg/dL Transthoracic Echo (TTE) Limited/Followup Result Date: 07/30/2022 Narrative: [address] [place] [address] Limited Echocardiogram Report Patient Name: JANIA GUAJARDO : 1950 Study Date: 07/30/2022 3:11:27 PM Gender: M Tech: Location: [place] [address] Ref.Provider: STEVEN VELEZ Height(Cm): 180 BSA: 1.85 Weight(Kg): 68.5 Quality: Adequate Procedures: EchocardiographicReport: Limited transthoracic echocardiogram with 2D and M- Mode. Indications: hx atrial septostomy with iatrogenic ASD July 2022, left atrial appendage occlusion device placement. Measurements: Findings: Atrial Septum: The atrial septum is not well visualized. Aorta: Normal aortic root. Left Ventricle: Mild concentric left ventricular hypertrophy. Normal left ventricular size. Normal global leftventricular systolic function. Normal left ventricular diastolic function. Ejection fraction is visually estimated at 70 %. Left Atrium: There is mild enlargement of left atrium. Right Ventricle: Normal right ventricular size. Normal right ventricular systolic function. Right Atrium: The right atrium is normal in size. Mitral Valve: Normal structure of the mitral valve. Pulmonic Valve: Pulmonic valve not well visualized. Tricuspid Valve: Normal structure of the tricuspid valve. Pericardium: Normal pericardium with no significant pericardial effusion. Conclusions: Mild concentric left ventricular hypertrophy. Normal left ventricular size. Normal global left ventricular systolic function. Normal left ventricular diastolic function. Ejection fraction is visually estimated at 70 %. Normal right ventricular size. Normal right ventricular systolic function. There is mild enlargement of left at rium. The right atrium is normal in size. Electronically Signed By: Stanford Vang 2022-07-30 15:38:36 CDT CC: CC: CT Facial Bones WO Contrast Result Date: 07/30/2022 Narrative: EXAM DESCRIPTION: CT FACIAL BONES WO CONTRAST REASON FOR STUDY: Facial fracture, follow up Fell yesterday, known orbit fracture TECHNIQUE: Noncontrast computed tomography images through the paranasal sinuses. Reconstructed MPR images reviewed. All images stored on PACS. Automated exposure control was used as a dose optimization technique for this examination. COMPARISON: 07/29/2022 FINDINGS: BONES: The slightly depressed fracture of the lateral wall of the right maxillary sinus is unchanged. Very small amount of subcutaneous emphysema is unchanged. SOFT TISSUES: No abscess. No inflammatory changes. SINUSES: A small amount of fluid and mucosal thickening in the right maxillary sinus is unchanged. NASAL CAVITY: Midline nasal septum. ORBITS: No significant abnormalities visualized. TMJ: A large amount of patient motion simulates fractures of the mandible. If a mandibular fracture is suspected clinically, CT of the mandible is recommended MASTOIDS: Well-aerated. IACs symmetric,grossly normal. BRAIN: Limited view. No acute findings. OTHER: No other significant finding. IMPRESSION: Slightly depressed fracture of the lateral wall of the right maxillary sinus, unchanged. Largeamount of patient motion simulating fractures of the mandible. If a mandibular fracture is suspected clinically, CT of the mandible is recommended. THIS IS AN ELECTRONICALLY VERIFIED FINAL REPORT 07/30/2022 12:42 PM - Electronically signed by Anastacio Chakraborty M.D. JEFFREY: JEFFREY Report ID: [id number] Reading Location: [id number] ECG 12 lead Result Date: 07/30/2022 Narrative: Vent Rate: 129 bpm RR Interval: 464 msec [place] Interval: 0 msec QRS Duration: 78 msec QT Interval: 315 msec QTC Interval: 391 msec P-R-T [place]: 0 - 24 - -29 degrees ATRIAL FIBRILLATION WITH RAPID VENTRICULAR RESPONSE WITH ABERRANT CONDUCTION OR VENTRICULAR PREMATURE COMPLEXES LOW QRS VOLTAGEIN PRECORDIAL LEADS [QRS DEFLECTION < 1.0 mV IN CHEST LEADS] SEPTAL MYOCARDIAL INFARCTION , OF INDETERMINATE AGE [40+ ms Q WAVE IN V1/V2] ABNORMAL ECG Compared to prior EKG heart rate increased Electronically Signed By: Stanford Norton XR Chest 1 View Result Date: 07/29/2022 Narrative: EXAM DESCRIPTION: XR CHEST 1 VIEW REASON FOR STUDY: general weakness, c/f pna Pt presents to ED s/p FALL AT RETIREMENT ALERT TO SELF ONLY STAFF STATES SECOND FALL THIS WEEK Patient is a 72-year-old man with a history of dementia, hypertension, hyperlipidemia, heart failure with preserved ejection fraction, and atrial fibrillation status post Watchman 07/17 now off anticoagulation who presents with recurrent falls. Apparently fell last night. Seen at [facility] and diagnosed with question proximal humerus fracture on right. Subsequently fell and was seen there again. Had yet another fall tonight prompting transfer here. Patient denies any current complaints but is unable to provide additional history secondary to dementia. TECHNIQUE: One radiographic view of the chest acquired.COMPARISON: None FINDINGS: LUNGS/PLEURA: No focal consolidation or pneumothorax. No pleural effusion. Elevation right hemidiaphragm with atelectasis at the right lung base. HEART/MEDIASTINUM: Heart size is normal. Normal mediastinal and hilar contours. HARDWARE/LINES/TUBES: None. BONES: Impacted fracture of the proximal right humerus. OTHER: No other significant finding. IMPRESSION: Impacted fracture of the proximal right humerus. THIS IS AN ELECTRONICALLY VERIFIED FINAL REPORT 07/29/2022 10:18 PM - Electronically signed by Bryson Owen M.D. KT: SOHAIL Report ID: [id number] Reading Location: [id number] XR Shoulder Right 2 or More Views Result Date: 07/29/2022 Narrative: EXAM DESCRIPTION: XR SHOULDER RIGHT 2 OR MORE VIEWS REASON FOR STUDY: known fx, ?prox hum, c/f fx Pt presents to ED s/p FALL AT RETIREMENT ALERT TO SELF ONLY STAFF STATES SECOND FALL THIS WEEK Patient is a 72-year-old man with a history of dementia, hypertension, hyperlipidemia, heart failure with preserved ejection fraction, and atrial fibrillation status post Watchman 07/17 now off a nticoagulation who presents with recurrent falls. Apparently fell last night. Seen at [facility] and diagnosed with question proximal humerus fracture on right. Subsequently fell and was seen there again. Had yet another fall tonight prompting transfer here. Patient denies any current complaints but is unable to provide additional history secondary to dementia. TECHNIQUE: Internal and external rotation views of the right shoulder were obtained. COMPARISON: None FINDINGS: BONES/JOINTS: There is an impacted fracture through the surgical neck of the proximal right humerus. Degenerative narrowingof the right glenohumeral joint. There is osteophytic spurring about the right acromioclavicular joint. SOFT TISSUES: Unremarkable. VISUALIZED RIBS AND LUNG: No significant finding. OTHER: No significant finding. IMPRESSION: Impacted fracture through the surgical neck of the proximal right humerus.THIS IS AN ELECTRONICALLY VERIFIED FINAL REPORT 07/29/2022 10:17 PM - Electronically signed by Annika Owen M.D. KT: SOHAIL Report ID: [id number] Location: [id number] CT Head WO Contrast Result Date: 07/29/2022 Narrative: EXAM DESCRIPTION: CT HEAD WO CONTRAST REASON FOR STUDY: Head trauma, minor (Age => 66y) Pt arrived from senior care after a fall today. Unknown if pt hit head. Pt poor historian and confused. Prior fall one week ago. Hx of HTN, TIA TECHNIQUE: Axial images acquired through the brain without intravenous contrast. Images stored on PACS. Automated exposure control was used as a dose optimization technique for this examination. COMPARISON: 10/07/2021 FINDINGS: BRAIN: No hemorrhage, edema or mass effect. No recent infarct. Nonspecific periventricular and subcortical white matter hypoattenuation which can be seen as sequela of chronic small vessel ischemic disease. There is intraoperative appropriate cerebral volume loss with ex vacuo dilatation of the ventricular system, not substantially changed. No acute intraventricular hemorrhage. Basal cisterns are patent. EXTRA-AXIAL SPACES: No fluid collections. No masses. CALVARIUM: No acute calvarial fracture. SINUSES/MASTOIDS: There is an acute comminuted and mildly displaced fracture of the lateral wall of the right maxillary sinus possibly extending to the posterior wall right maxillary sinus with locules of gas extending adjacent to right lateral orbital wall. There is a subtle cortical step-off along the lateral right orbital wall likely reflective of an acute minimally displaced fracture. There is mucosal thickening ofthe right maxillary sinus with superimposed small volume hemorrhage. Mild mucosal thickening of theethmoid air cells. Otherwise, no fluid or mucosal thickening. ORBITS: No significant abnormality. There is mild right edna-maxillary facial contusion. IMPRESSION: 1. No acute intracranial findings. 2. Acute comminuted and mildly displaced fracture of the lateral wall right maxillary sinus possibly extending to the posterior wall. Subtle cortical step-off along the lateral right orbital wall likely reflective of an acute minimally displaced fracture. 3. Mild right edna-maxillary facial contusion. THIS IS AN ELECTRONICALLY VERIFIED FINAL REPORT 07/29/2022 9:46 PM - Electronically signed by Destiny Mullen M.D. AT: AT Report ID: [id number] Reading Location: [id number] ECG 12 lead Result Date: 07/17/2022 Narrative: Vent Rate: 67 bpm RR Interval: 885 msec [place] Interval: 0 msec QRS Duration: 89 msec QT Interval: 420 msec QTC Interval: 436 msec P-R-T [place]: 0 - 4 - -9 degrees ATRIAL FIBRILLATION ABNORMAL RHYTHM ECG Electronically Signed By: Clarence Wilkes MD CHOLO Guidance During Cardiac Structural Intvn [id number] Result Date: 07/17/2022 Narrative: [id number] [place] [address] TRANSESOPHAGEAL ECHOCARDIOGRAM Patient Name: JANIA GUAJARDO A : 1950 Study Date: 07/17/2022 8:20:57 AM Gender: M Tech: VALADEZ Location: [id number] Ref.Provider: PEDRO LUIS GOMEZ Height(Cm): 178 BSA: 2.01 Weight(Kg): 83.46 BP: 137/85Order Provider: PEDRO LUIS GOMEZ - Procedures: Transesophageal Echo Report: Transesophageal echocardiogram including 2D imaging, spectral doppler and color doppler was performed in the cardiac catheterization laboratory to support a structural procedure. The procedure was monitored with automatic blood pressure monitoring, ECG tracings, and pulse oximetry. Sedation was achieved by anesthesia using Propofol IV. The transesophageal probe was placed in the esophagus posterior to the heart without any complications. The patient tolerated the procedure well. Indications: Atrial fibrillation. Findings: BP: Blood pressure: 137/85 mmHg. Left Ventricle: Roughly low normal global left ventricular systolic function. Ejection Fraction is estimated at 50-60 %. Normal left ventricular cavity size. Right Ventricle: Normal right ventricular size. Normal right ventricular systolic function. Left Atrium: There is mild enlargement of the left atrium. LA Appendage: No TINY thrombus seen. During the case a left atrial appendage occlusion device was deployedin the left atrial appendage. It appears well-seated. There is no color Doppler flow around the device. Right Atrium: There is mild enlargement of the right atrium. Atrial Septum: Normal atrial septum at the start of the case. During the case atrial septostomy was performed resulting in an iatrogenic ASD at the end of the case. Predominant flow is [id number]. Mitral Valve: Normal appearance ofthe mitral valve. Trace mitral valve regurgitation. There is no evidence for significant mitral stenosis. Aortic Valve: Normal appearance and function of the aortic valve. Trileaflet aortic valve. Tricuspid Valve: Grossly normal appearing tricuspid valve. TR envelope inadequate to estimate RVSP. There is trace tricuspid regurgitation. Pulmonic Valve: Pulmonic valve not well visualized. No pulmonic stenosis. No evidence of pulmonic regurgitation. Pericardium: Small pericardial effusion. Aorta: Mild aortic root dilatation. Pulmonary Artery: Normal pulmonary artery size. Conclusions: 1. Roughly low normal global left ventricular systolic function. Ejection Fraction is estimated at 50-60 %. Normal left ventricular cavity size. 2. Normal right ventricular size. Normal right ventricular systolic function. 3. Normal atrial septum at the start of the case. During the case atrial septostomy was performed resulting in an iatrogenic ASD at the end of the case. Predominant flow is [id number]. 4. Small pericardial effusion. 5. Mild aortic root dilatation. 6. No TINY thrombus seen. During the case a left atrial appendage occlusion device was deployed in the left atrial appendage. It appears well-seated. There is no color Doppler flow around the device. Electronically Signed By: Donavan Valadez MD 2022-07-17 11:54:13 CDT CC: CC: Implantable Cardiac Device Result Date: 07/17/2022 Narrative: Images from the original result were not included. [facility] [address] [place] [address],[id number], [address] Watchman Left Atrial Appendage Occluder Placement Procedure Report 72 year old male with atrial fibrillation with elevated CHADSVASC score and elevated bleeding risk referred for Watchman device. Attending physicians: Pedro Luis Gomez MD Access:8F RFV ->14F for device placement Catheter:Pigtail Injection:Left atrial appendage Closure:Perclose Anticoagulation:[id number] Heparin Air Kerma:74 mGy Fluoro time:3.2 min Contrast:27 ml Optiray Sedation:general per anesthesia Procedural details: After risks, benefits, and alternatives to the procedure were explained to the patient, they agreed to proceed. After signing informed consent the patient was brought to the cardiac catheterization laboratory/hybrid OR. They were prepped and draped in sterile fashion. General anesthesia was used. Cholo guidance was the provided by Dr. Valadez. A 6F sheath was inserted into the right femoral vein using the modified Seldinger technique, micropuncture access, and ultrasound guidance. We then advanced the Versacross catheter and wire. We then performed transseptal puncture using this system and CHOLO guidance. We confirmed appropriate height for the Watchman system. We advanced the catheter across the intra-atrial septum and advanced the wire into the left superior pulmonary vein. Heparin was administered to achieve an ACT greater than 300. Using the stiff wire as a rail, we then advanced the Watchman sheath into the left atrium. Left atrial pressure was 11mm Hg. We removed the stiff wire and then advanced the pigtail catheter into the left atrial appendage. We maneuvered the sheath into the appendage, and performed angiography as well.Baseline width of the appendage was 21mm. We then advanced a 27mm Watchman FLX device and deployed it using CHOLO and fluoroscopic guidance in the TINY ostium. Post deployment measurements were taken, with 14-21% compression. There was 0mm leak visualized by CHOLO or angiography. We satisfied PASS criteria and the device was released with excellent positioning. The system was removed and the access site was closed with the perclose sutures. Final CHOLO showed well seated device and a small iatrogenic ASD (inherent to the procedure). There was no pericardial effusion noted at end of case. Patient was extubated and transferred to the PACU for further monitoring and care. A/P: Successful Watchman FLXprocedure with 27mm device deployed. Continue optimal medical therapy. Further management per the cardiology and medicine teams. Pedro Luis Gomez MD 07/17/22 10:13 AM Current Facility-Administered Medications Medication Dose Route Frequency Provider Last Rate Last Admin acetaminophen (TYLENOL) tablet 1,000 mg 1,000 mg oral Q6H PRN Byron Torres MD 1,000 mg at 07/31/22 0110 albuterol 2.5 mg /3 mL (0.083 %) nebulizer solution 2.5 mg 2.5 mg nebulization Q6H PRN (RT) Brii Beverly MD amLODIPine (NORVASC) tablet 5 mg 5 mg oral Daily Brii Beverly MD 5 mg at 08/01/22 09 aspirin enteric coated tablet 81 mg 81 mg oral Daily Steven Velez NP 81 mg at 08/01/22920 atorvastatin (LIPITOR) tablet 10 mg 10 mg oral Nightly StephanieSteven gil NP 10 mg at 07/31/222120 budesonide-formoteroL (SYMBICORT) 80-4.5 mcg/actuation inhaler 2 puff 2 puff inhalation BID (RT) Steven Velez NP 2 puff at 08/01/22 103 Carrier Fluids for Secondary Infusion - 0.9% Sodium Chloride 30 mL intravenous PRN Brii Beverly MD clopidogreL (PLAVIX) tablet 75 mg 75 mg oral Daily Steven Velez NP 75 mg at enoxaparin (LOVENOX) syringe 40 mg 40 mg subcutaneous Daily-2099 Byron Torres MD 40 mg at 07/31/222121 losartan (COZAAR) tablet 100 mg 100 mg oral Daily Brii Beverly MD 100 mg at 08/01/22919 metoprolol tartrate (LOPRESSOR) immediate release tablet 100 mg 100 mg oral BID Syeda Beverly MD 100 mg at 08/01/22 09 ondansetron ODT (ZOFRAN-ODT) disintegrating tablet 4 mg 4 mg oral Q6H PRN Brii Beverly MD Or ondansetron (ZOFRAN) injection 4 mg 4 mg intravenous Q6H PRN Brii Beverly MD pantoprazole DR (PROTONIX) extended release tablet 40 mg 40 mg oral Daily Brii Beverly MD 40 mg at 08/01/22 0920 polyethylene glycol (MIRALAX) packet 17 g 17 g oral Daily StephanieSteven gil NP 17 g at 08/01/22 0921 ramelteon (ROZEREM) tablet 8 mg 8 mg oral Nightly StephanieSteven NP 8 mg at 07/31/222120 senna-docusate (PERICOLACE) 8.6-50 mg per tablet 2 tablet 2 tablet oral BID Steven Velez NP 2 tablet at 08/01/22 0920 sodium chloride (OCEAN) 0.65 % nasal spray 2 spray 2 spray each nostril Q2H PRN StephanieSteven gil NP sodium chloride 0.9% flush 0.5-20 mL 0.5-20 mL intra-catheter Q8H MONET Brii Beverly MD 10 mL at 08/01/22 0604 sodium chloride 0.9% flush 0.5-20 mL 0.5-20 mL intra-catheter PRN Brii Beverly MD terazosin (HYTRIN) capsule 10 mg 10 mg oral Nightly StephanieSteven gil NP 10 mg at 07/31/222120 traZODone (DESYREL) tablet 50 mg 50 mg oral Nightly Stephanie, Steven Monroe NP 50 mg at 07/31/222120 A/P: Right maxillary sinus fractures - Incidentally found on CT head - EOM intact - CT facial bones: Slightly depressed fracture of the lateral wall of the right maxillary sinus, unchanged. - ENT consulted - Nonoperative management - HOB >30 degrees - Sinus precautions - [place] spray q2hr Right periprosthetic shoulder fracture - Orthopedic surgery consulted - Sling to RUE - NWB RUE pending further recommendations - 08/01: Continue to await consultation/recommendations - Pain control, PT/OT Recurrent falls - Orthostatic vitals negative - Telemetry monitoring - UA negative - PT/OT evaluations Atrial fibrillation S/p Watchmen placement - Home regimen: metoprolol 100mg BID, ASA 81mg daily, Plavix 75mg daily - CHOLO (07/17/22): LVEF 50-60%, iatrogenic ASD due to septostomy, left atrial appendage occlusion device deployment - 07/29: HR elevated overnight, diltiazem IV x1 given - 07/30: HR intermittently elevated, resumed home metoprolol, Mg 1.8, 2g repleted - Cardiology consulted - Telemetry monitoring - Continue home regimen - 08/01: HR controlled, cardiology signed off Hypertension/hyperlipidemia HFpEF - Home regimen: amlodipine 5mg daily, ASA 81mg daily, atorvastatin 10mg daily, losartan 50mg BID, terazosin 10mg daily - Continue home regimen - Recent CHOLO as above - Repeat TTE without significant changes - VS q4hr Anxiety/depression - Strict sleep hygiene - Ramelteon 8mg qHS - Trazodone 50mg qHS COPD, not in exacerbation - Symbicort BID - Nebs PRN - Goal SpO2 88-92% GERD - Protonix 40mg daily DVT ppx: lovenox My total encounter time on 08/01/2022 was 30 minutes which was spent in the activities documented inthe note. This includes time spent prior to the visit and after the visit in direct care of the patient. This time does not include time spent in any separately reportable services. Principal Problem: Frequent falls Resolved Problems: No resolved hospital problems. Steven Velez NP 08/01/2022 1:08 PM * Serina Silverman, AUDIT LEAD - 08/01/2022 9:06 AM CDT Physical Therapy 08/01/22 0839 PT Last Visit Session Type Treatment Safe Environment Arm band checked;Patient found in supine;Session completed bedside;Gait belt utilized for all out of bed mobility Pain Assessment Pain Assessment 0-10 Pain Score 10 - Worst possible pain Pain Location Arm Pain Orientation Right Bed Mobility 1 Bed Mobility From 1 Supine Bed Mobility Type 1 To Bed Mobility to 1 Edge of bed Level of Assistance 1 Maximum Assist Transfer 1 Transfer From 1 Bed;Sit Transfer Type 1 To and from Transfer to 1 Stand Technique 1 Sit to stand;Stand to sit Transfer Device 1 No device;Hand held assist Transfer Level of Assistance 1 Moderate Assist Ambulation 1 Distance (ft) 1 2-3 steps to chair Device 1 Hand held assist;No device (held onto chair) Assistance 1 Maximum Assist;Moderate Assist Gait: Requires assist with 1 Maintaining balance Gait: Requires verbal cues to 1 Increase step length;Increase base of support Safe Environment End of Therapy Session Safe Environment End of Therapy Session Patient left in chair;Call light within reach;Overbed tablewithin reach;Chair alarm in place and activated Assessment Prognosis Fair Problem List Decreased strength;Decreased range of motion;Decreased endurance;Impaired balance;Decreased mobility Plan Plan If this is the last note, consider this the discharge summary Recommendation/Plan PT Recommendation/Plan Longterm Facility Patient at high risk for Falls;Readmission;Injury due to decreased ability to care for self;Injury due to reduced functional status;Injury due to balance deficits Recommend SNF due to Unable to safely care for self in the home;Risk of injury at home;Skilled therapy needed to address care for self in the home;Skilled therapy needed to address functional deficits;Skilled therapy needed for patient to return to prior level of independence * Kerri Pandey - 07/31/2022 1:30 PM CDT Nutrition Assessment Pt does not meet ASPEN criteria for malnutrition Reason for Assessment: Screened at Nutrition Risk and Initial Nutrition Assessment Encounter Date: 07/31/22 1:30 PM Nutrition Assessment and Plan: Patient is a 72 y.o. male. Admit Dx: Atrial fibrillation with RVR ([facility]) ([facility]) [I48.91] Frequent falls [R29.6] Other closed nondisplaced fracture of proximal end of right humerus, initial encounter [S42.294A] Closed fracture of facial bone, unspecified facial bone, initial encounter ([facility]) [S02.92XA]. Admitted on 07/29/2022, current LOS is 2 days. Impression: Screened for MST score of 2. Pmh of HTN, CHF, COPD, GERD, dysphagia, and dementia. Pt poor historian, unable to provide wt hx or PO intake hx. Per EMR wt hx, wt appears stable for last year. No signs of wasting noted on NFPE, but limited due to pt was fatigued and didn't want to participate in some parts of the exam. Per Otolaryngology note, pt with severe dental caries and need for very soft diet . Adding diet texture to aid. Current intakes good at breakfast this morning. Current diet order: Adult Diet Restricted; Low Fat, Low Chol, Low Na, 2 GM Sodium Pt intake is adequate. PO intakes: 100% Supplement Order: N/A Nutrition Diagnosis 1: Biting/Chewing difficulty Related to: Other (comment) (Severe Dental caries)Evidenced by: Other (comment) (Otolaryngology note) Interventions: Modify diet Monitoring and Evaluation: Discharge plans, Labs, Plan of care, PO intake Goals: Continue adequate PO intakes, Diet consistency appropriate for patient needs during stay Recommendations: Mechanical soft, 2 gm sodium diet Subjective Nutrition Focused Physical Exam: Completed, no signs of wasting noted. Wt Readings from Last 10 Encounters: 07/30/22 81.8 kg (180 lb 5.4 oz) 07/17/22 83.6 kg (184 lb 4.9 oz) 04/17/22 79.4 kg (175 lb) 10/05/21 80.6 kg (177 lb 11.1 oz) 08/02/21 81.6 kg (180 lb) 07/07/21 89.7 kg (197 lb 12 oz) 06/24/21 85.8 kg (189 lb 2.5 oz) 06/18/21 85.8 kg (189 lb 2.5 oz) 01/25/21 91.6 kg (202 lb) 07/16/20 87.1 kg (192 lb) Adult Malnutrition Scoring Tool (MST) What diet do you follow at home?: Regular Have You Recently Lost Weight Without Trying?: Unsure Have you been eating poorly because of a decreased appetite?: No Malnutrition Screening Tool (MST) Score: 2 Estimated needs: Total Kcal/kg Estimated Needs : 1636 based on Kcal/k. Type of Weight Used for Estimated Kcals:Current Total Protein Estimated Needs (gm): 81.8 Protein Needs Based on g/k.0 Type of Weight Used for Estimated Protein : Current. Total Fluid Estimated Needs: 1636 Fluid Needs Based on : 1 ml/kcal. . Objective Anthropometrics Weight: 81.8 kg (180 lb 5.4 oz) Admission Weight : 81.8 kg Weight Change: -1.79 kg (-3.96 lbs) IBW/kg (Calculated) : 64.4 kg Height: 167.6 cm (5' 6 ) Weight in (lb) to have BMI = 25: 154.6 BMI (Calculated): 29.1 BMI Classification: BMI 25.0 - 29.9 Overweight 3 Day I/O Summary 07/29 1899 - 07/31 658 In: - Out: 500 [Urine:500] Temp: 36.8 ??C (98.2 ??F) Past Medical History: Diagnosis Date Acute cholecystitis Alcohol use Anxiety Atrial fibrillation (CMS/HCC) (HCC) Blind legally blind BPH (benign prostatic hyperplasia) BPH (benign prostatic hyperplasia) CHF (congestive heart failure) (CMS/HCC) (HCC) CHF (congestive heart failure) (CMS/HCC) (HCC) Cholecystitis Chronic anemia COPD (chronic obstructive pulmonary disease) (HCC) GERD (gastroesophageal reflux disease) 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 HTN (hypertension) Hyperlipidemia Hypertension TIA (transient ischemic attack) Vitamin D deficiency Medications and Lab Review: Scheduled Meds: amLODIPine, 5 mg, oral, Daily aspirin, 81 mg, oral, Daily atorvastatin, 10 mg, oral, Nightly budesonide-formoteroL, 2 puff, inhalation, BID (RT) clopidogreL, 75 mg, oral, Daily enoxaparin, 40 mg, subcutaneous, Daily-2100 losartan, 100 mg, oral, Daily metoprolol, 100 mg, oral, BID pantoprazole DR, 40 mg, oral, Daily polyethylene glycol, 17 g, oral, Daily ramelteon, 8 mg, oral, Nightly senna-docusate, 2 tablet, oral, BID sodium chloride 0.9%, 0.5-20 mL, intra-catheter, Q8H MONET terazosin, 10 mg, oral, Nightly traZODone, 50 mg, oral, Nightly Continuous Infusions: Sodium Date Value Ref Range Status 07/31/2022 136 135 - 145 mmol/L Final Potassium, pl Date Value Ref Range Status 07/31/2022 3.8 3.3 - 4.9 mmol/L Final BUN Date Value Ref Range Status 07/31/2022 17 8 - 25 mg/dL Final Creatinine Date Value Ref Range Status 07/31/2022 0.97 0.80 - 1.30 mg/dL Final Phosphorus, pl Date Value Ref Range Status 07/31/2022 3.7 2.3 - 4.5 mg/dL Final Albumin Date Value Ref Range Status 07/29/2022 3.4 (L) 3.5 - 5.0 g/dL Final Magnesium Date Value Ref Range Status 07/31/2022 2.2 1.4 - 2.5 mg/dL Final Calcium Date Value Ref Range Status 07/31/2022 8.5 8.5 - 10.3 mg/dL Final Lab Results Component Value Date HGBA1C 5.2 06/12/2021 Glucose Date Value Ref Range Status 07/31/2022 101 70 - 199 mg/dL Final Comment: Interpretive Data Fasting glucose >/= 126 mg/dl is diagnostic for diabetes. Fasting is defined as no caloric intake for at least 8 hours. Fasting glucose between 100 mg/dl to 125 mg/dl is diagnostic of prediabetes. In a patient with classic symptoms of hyperglycemia or hyperglycemic crisis, a random glucose >/= 200 mg/dl is diagnostic for diabetes. In the absence of unequivocal hyperglycemia, results should be confirmed by repeat testing. The classification and Diagnosis of Diabetes Diabetes Care 2021; 46: S19-S40. Current interpretive data was last revised 2022. Nursing Assessment: Lew Scale Score: 19 Skin Integrity: Bruising Diet Instructions Continue to follow a Very Soft, Heart Healthy diet that is low in sodium, trans fat and saturated fat. Read the nutrition facts label on packages. Aim to eat less than 2,000mg sodium per day (about 500-700 mg per meal). Do not add salt to foods and avoid foods that are high sources of sodium, such as fast foods, fried/breaded foods, canned goods, deli meats and gravies/sauces. Additional resources available online from the [employer] at www.heart.org/en/healthy-living/healthy-eating Call [facility] Dietitian's office at [phone] for questions about your diet. If interested in nutrition counseling, ask your doctor for referral and call [phone] to make an appointment. Nutrition Follow-Up : 08/03/22 PHILLIP Eugene RDN * Amanda Montez NP - 07/31/2022 10:50 AM CDT General Medicine Daily Progress SUBJECTIVE Patient is a 72 y.o. man with dementia, HTN, HLD, COPD, chronic HFpEF, chronic atrial fibrillation s/p Watchman device placement on 07/17/2022, among other medical problems. He presents from a senior care with report of recurrent falls. Per the patient, ???I fell again, at home. I was putting some stuff away in the closet. The next thing I know, I hit my head. ?I could not pop up. I just laid there. ?? Beyond these, the patient could not provide further details. It is reported that he has had 3 falls within the past 24 hours. He was evaluated at [place] following the 1st 2 falls and noted to have a fracture of the right humerus and and fractures involving the right maxilla and lateral aspect of the right orbital wall. Following his 3rd fall, he was brought to our hospital. In the ER, he was in atrial fibrillation with RVR. RVR improved following administration of diltiazem 15 mg IV and diltiazem ER 120 mg p.o.. He was also given potassium chloride and magnesium sulfate. CXR and CXR of the right shoulder confirmed proximal right humeral fracture through the surgical neck. CT of the head showed no acute intracranial process but identified facial fractures as previously stated. Interval History: Admitted to the floor yesterday from the ED. Very flat affect this AM. Would open eyes and occasionally answer questions, but then went stopped participating and went back to sleep. Denied complaintsthis AM. Will obtaine rHCT to rule out a delayed bleed. Pending Orthopedics recs for periprostheticshoulder fx. OSVS ordered. TTE without significant findings. OBJECTIVE Vitals: 24hr Min/Max: Temp Min: 36 ??C (96.8 ??F) Max: 36.2 ??C (97.2 ??F) Pulse Min: 71 Max: 105 BP Min: 109/75 Max: 153/88 Resp Min: 18 Max: 20 SpO2 Min: 95 % Max: 99 % Most Recent : Vitals: 07/31/22 0810 BP: 130/76 Pulse: 89 Resp: 18 Temp: 36 ??C (96.8 ??F) SpO2: 95% I/O last 2 completed shifts: In: - Out: 500 [Urine:500] I/O this shift: In: 240 [P.O.:240] Out: - Physical Exam: Gen: In no acute distress Head: Normocephalic, atraumatic; no tenderness of the face Eyes: Very small periorbital bruise at the lateral angle of the right eye Neck: No JVD, supple ENT: Moist oral mucosa Heart/CV: Irregular rhythm, normal HR, normal S1/S2, no murmur/gallop, no pedal edema Lungs/Resp: Non-labored breathing, CTAB Abdomen/GI: Non-distended, soft and nontender; normal bowel sounds : No CVA tenderness MSK: Right upper extremity is immobilized with a shoulder sling Neuro: Alert; oriented to person; knows he is in the hospital but can not tell the name or city; not oriented to time Skin: Intact Psych: Blunt affect Lab/Current Medication Review: Recent Results (from the past 24 hour(s)) Basic metabolic panel Collection Time: 07/31/22 2:54 AM Result Value Ref Range Sodium 136 135 - 145 mmol/L Potassium, pl 3.8 3.3 - 4.9 mmol/L Chloride 102 97 - 110 mmol/L CO2 26 22 - 32 mmol/L Anion gap 9 2 - 15 mmol/L BUN 17 8 - 25 mg/dL Creatinine 0.97 0.80 - 1.30 mg/dL Glucose 101 70 - 199 mg/dL Calcium 8.5 8.5 - 10.3 mg/dL CBC without differential Collection Time: 07/31/22 2:54 AM Result Value Ref Range WBC 6.9 3.8 - 9.9 K/cumm Hgb 9.5 (L) 13.0 - 17.5 g/dL Hct 28.1 (L) 38.9 - 50.3 % Plt 116 (L) 150 - 400 K/cumm MPV 10.6 9.1 - 12.3 fL RBC 2.85 (L) 4.30 - 5.80 M/cumm MCV 98.6 (H) 81.3 - 96.4 fL MCH 33.3 27.1 - 33.3 pg MCHC 33.8 32.3 - 35.7 g/dL RDW CV 13.2 11.1 - 14.9 % RDW SD 47.2 35.7 - 48.1 fL NRBC abs 0.00 0.00 - 0.01 K/cumm Magnesium Collection Time: 07/31/22 2:54 AM Result Value Ref Range Magnesium 2.2 1.4 - 2.5 mg/dL Phosphorus Collection Time: 07/31/22 2:54 AM Result Value Ref Range Phosphorus, pl 3.7 2.3 - 4.5 mg/dL eGFR Collection Time: 07/31/22 2:54 AM Result Value Ref Range eGFR 83 mL/min/1.73 m2 Transthoracic Echo (TTE) Limited/Followup Result Date: 07/30/2022 Narrative: [address] [address] Limited Echocardiogram Report Patient Name: JANIA GUAJARDO : 1950 Study Date: 07/30/2022 3:11:27 PM Gender: M Tech: Location: [place] [address] Ref.Provider: STEVEN VELEZ Height(Cm): 180 BSA: 1.85 Weight(Kg): 68.5 Quality: Adequate Procedures: EchocardiographicReport: Limited transthoracic echocardiogram with 2D and M- Mode. Indications: hx atrial septostomy with iatrogenic ASD July 2022, left atrial appendage occlusion device placement. Measurements: Findings: Atrial Septum: The atrial septum is not well visualized. Aorta: Normal aortic root. Left Ventricle: Mild concentric left ventricular hypertrophy. Normal left ventricular size. Normal global leftventricular systolic function. Normal left ventricular diastolic function. Ejection fraction is visually estimated at 70 %. Left Atrium: There is mild enlargement of left atrium. Right Ventricle: Normal right ventricular size. Normal right ventricular systolic function. Right Atrium: The right atrium is normal in size. Mitral Valve: Normal structure of the mitral valve. Pulmonic Valve: Pulmonic valve not well visualized. Tricuspid Valve: Normal structure of the tricuspid valve. Pericardium: Normal pericardium with no significant pericardial effusion. Conclusions: Mild concentric left ventricular hypertrophy. Normal left ventricular size. Normal global left ventricular systolic function. Normal left ventricular diastolic function. Ejection fraction is visually estimated at 70 %. Normal right ventricular size. Normal right ventricular systolic function. There is mild enlargement of left at rium. The right atrium is normal in size. Electronically Signed By: Stanford Vang 2022-07-30 15:38:36 CDT CC: CC: CT Facial Bones WO Contrast Result Date: 07/30/2022 Narrative: EXAM DESCRIPTION: CT FACIAL BONES WO CONTRAST REASON FOR STUDY: Facial fracture, follow up Fell yesterday, known orbit fracture TECHNIQUE: Noncontrast computed tomography images through the paranasal sinuses. Reconstructed MPR images reviewed. All images stored on PACS. Automated exposure control was used as a dose optimization technique for this examination. COMPARISON: 07/29/2022 FINDINGS: BONES: The slightly depressed fracture of the lateral wall of the right maxillary sinus is unchanged. Very small amount of subcutaneous emphysema is unchanged. SOFT TISSUES: No abscess. No inflammatory changes. SINUSES: A small amount of fluid and mucosal thickening in the right maxillary sinus is unchanged. NASAL CAVITY: Midline nasal septum. ORBITS: No significant abnormalities visualized. TMJ: A large amount of patient motion simulates fractures of the mandible. If a mandibular fracture is suspected clinically, CT of the mandible is recommended MASTOIDS: Well-aerated. IACs symmetric,grossly normal. BRAIN: Limited view. No acute findings. OTHER: No other significant finding. IMPRESSION: Slightly depressed fracture of the lateral wall of the right maxillary sinus, unchanged. Largeamount of patient motion simulating fractures of the mandible. If a mandibular fracture is suspected clinically, CT of the mandible is recommended. THIS IS AN ELECTRONICALLY VERIFIED FINAL REPORT 07/30/2022 12:42 PM - Electronically signed by Anastacio Chakraborty M.D. JEFFREY: JEFFREY Report ID: [id number] Reading Location: [id number] ECG 12 lead Result Date: 07/30/2022 Narrative: Vent Rate: 129 bpm RR Interval: 464 msec NJ Interval: 0 msec QRS Duration: 78 msec QT Interval: 315 msec QTC Interval: 391 msec P-R-T [place]: 0 - 24 - -29 degrees ATRIAL FIBRILLATION WITH RAPID VENTRICULAR RESPONSE WITH ABERRANT CONDUCTION OR VENTRICULAR PREMATURE COMPLEXES LOW QRS VOLTAGEIN PRECORDIAL LEADS [QRS DEFLECTION < 1.0 mV IN CHEST LEADS] SEPTAL MYOCARDIAL INFARCTION , OF INDETERMINATE AGE [40+ ms Q WAVE IN V1/V2] ABNORMAL ECG Compared to prior EKG heart rate increased Electronically Signed By: Stanford Norton XR Chest 1 View Result Date: 07/29/2022 Narrative: EXAM DESCRIPTION: XR CHEST 1 VIEW REASON FOR STUDY: general weakness, c/f pna Pt presents to ED s/p FALL AT RETIREMENT ALERT TO SELF ONLY STAFF STATES SECOND FALL THIS WEEK Patient is a 72-year-old man with a history of dementia, hypertension, hyperlipidemia, heart failure with preserved ejection fraction, and atrial fibrillation status post Watchman 07/17 now off anticoagulation who presents with recurrent falls. Apparently fell last night. Seen at [facility] and diagnosed with question proximal humerus fracture on right. Subsequently fell and was seen there again. Had yet another fall tonight prompting transfer here. Patient denies any current complaints but is unable to provide additional history secondary to dementia. TECHNIQUE: One radiographic view of the chest acquired.COMPARISON: None FINDINGS: LUNGS/PLEURA: No focal consolidation or pneumothorax. No pleural effusion. Elevation right hemidiaphragm with atelectasis at the right lung base. HEART/MEDIASTINUM: Heart size is normal. Normal mediastinal and hilar contours. HARDWARE/LINES/TUBES: None. BONES: Impacted fracture of the proximal right humerus. OTHER: No other significant finding. IMPRESSION: Impacted fracture of the proximal right humerus. THIS IS AN ELECTRONICALLY VERIFIED FINAL REPORT 07/29/2022 10:18 PM - Electronically signed by Bryson Owen M.D. KT: SOHAIL Report ID: [id number] Reading Location: [id number] XR Shoulder Right 2 or More Views Result Date: 07/29/2022 Narrative: EXAM DESCRIPTION: XR SHOULDER RIGHT 2 OR MORE VIEWS REASON FOR STUDY: known fx, ?prox hum, c/f fx Pt presents to ED s/p FALL AT RETIREMENT ALERT TO SELF ONLY STAFF STATES SECOND FALL THIS WEEK Patient is a 72-year-old man with a history of dementia, hypertension, hyperlipidemia, heart failure with preserved ejection fraction, and atrial fibrillation status post Watchman 07/17 now off a nticoagulation who presents with recurrent falls. Apparently fell last night. Seen at [facility] and diagnosed with question proximal humerus fracture on right. Subsequently fell and was seen there again. Had yet another fall tonight prompting transfer here. Patient denies any current complaints but is unable to provide additional history secondary to dementia. TECHNIQUE: Internal and external rotation views of the right shoulder were obtained. COMPARISON: None FINDINGS: BONES/JOINTS: There is an impacted fracture through the surgical neck of the proximal right humerus. Degenerative narrowingof the right glenohumeral joint. There is osteophytic spurring about the right acromioclavicular joint. SOFT TISSUES: Unremarkable. VISUALIZED RIBS AND LUNG: No significant finding. OTHER: No significant finding. IMPRESSION: Impacted fracture through the surgical neck of the proximal right humerus.THIS IS AN ELECTRONICALLY VERIFIED FINAL REPORT 07/29/2022 10:17 PM - Electronically signed by Annika Owen M.D. KT: SOHAIL Report ID: [id number] Location: [id number] CT Head WO Contrast Result Date: 07/29/2022 Narrative: EXAM DESCRIPTION: CT HEAD WO CONTRAST REASON FOR STUDY: Head trauma, minor (Age => 66y) Pt arrived from senior care after a fall today. Unknown if pt hit head. Pt poor historian and confused. Prior fall one week ago. Hx of HTN, TIA TECHNIQUE: Axial images acquired through the brain without intravenous contrast. Images stored on PACS. Automated exposure control was used as a dose optimization technique for this examination. COMPARISON: 10/07/2021 FINDINGS: BRAIN: No hemorrhage, edema or mass effect. No recent infarct. Nonspecific periventricular and subcortical white matter hypoattenuation which can be seen as sequela of chronic small vessel ischemic disease. There is intraoperative appropriate cerebral volume loss with ex vacuo dilatation of the ventricular system, not substantially changed. No acute intraventricular hemorrhage. Basal cisterns are patent. EXTRA-AXIAL SPACES: No fluid collections. No masses. CALVARIUM: No acute calvarial fracture. SINUSES/MASTOIDS: Thereis an acute comminuted and mildly displaced fracture of the lateral wall of the right maxillary sinus possibly extending to the posterior wall right maxillary sinus with locules of gas extending adjacent to right lateral orbital wall. There is a subtle cortical step-off along the lateral right orbital wall likely reflective of an acute minimally displaced fracture. There is mucosal thickening of the right maxillary sinus with superimposed small volume hemorrhage. Mild mucosal thickening of the ethmoid air cells. Otherwise, no fluid or mucosal thickening. ORBITS: No significant abnormality. There is mild right edna-maxillary facial contusion. IMPRESSION: 1. No acute intracranial findings. 2.Acute comminuted and mildly displaced fracture of the lateral wall right maxillary sinus possibly ex tending to the posterior wall. Subtle cortical step-off along the lateral right orbital wall likelyreflective of an acute minimally displaced fracture. 3. Mild right edna-maxillary facial contusion.THIS IS AN ELECTRONICALLY VERIFIED FINAL REPORT 07/29/2022 9:46 PM - Electronically signed by Destiny Mullen M.D. AT: AT Report ID: [id number] Reading Location: [id number] ECG 12 lead Result Date: 07/17/2022 Narrative: Vent Rate: 67 bpm RR Interval: 885 msec NJ Interval: 0 msec QRS Duration: 89 msec QT Interval: 420 msec QTC Interval: 436 msec P-R-T [place]: 0 - 4 - -9 degrees ATRIAL FIBRILLATION ABNORMAL RHYTHM ECG Electronically Signed By: Clarence Wilkes MD CHOLO Guidance During Cardiac Structural Intvn [id number] Result Date: 07/17/2022 Narrative: [address] [address] TRANSESOPHAGEAL ECHOCARDIOGRAM Patient Name: JANIA GUAJARDO A : 1950 Study Date: 07/17/2022 8:20:57 AM Gender: M Tech: VALADEZ Location: [id number] Ref.Provider: PEDRO LUIS GOMEZ Height(Cm): 178 BSA: 2.01 Weight(Kg): 83.46 BP: 137/85Order Provider: PEDRO LUIS GOMEZ - Procedures: Transesophageal Echo Report: Transesophageal echocardiogram including 2D imaging, spectral doppler and color doppler was performed in the cardiac catheterization laboratory to support a structural procedure. The procedure was monitored with automatic blood pressure monitoring, ECG tracings, and pulse oximetry. Sedation was achieved by anesthesia using Propofol IV. The transesophageal probe was placed in the esophagus posterior to the heart without any complications. The patient tolerated the procedure well. Indications: Atrial fibrillation. Findings: BP: Blood pressure: 137/85 mmHg. Left Ventricle: Roughly low normal global left ventricular systolic function. Ejection Fraction is estimated at 50-60 %. Normal left ventricular cavity size. Right Ventricle: Normal right ventricular size. Normal right ventricular systolic function. Left Atrium: There is mild enlargement of the left atrium. LA Appendage: No TINY thrombus seen. During the case a left atrial appendage occlusion device was deployedin the left atrial appendage. It appears well-seated. There is no color Doppler flow around the device. Right Atrium: There is mild enlargement of the right atrium. Atrial Septum: Normal atrial septum at the start of the case. During the case atrial septostomy was performed resulting in an iatrogenic ASD at the end of the case. Predominant flow is [id number]. Mitral Valve: Normal appearance ofthe mitral valve. Trace mitral valve regurgitation. There is no evidence for significant mitral stenosis. Aortic Valve: Normal appearance and function of the aortic valve. Trileaflet aortic valve. Tricuspid Valve: Grossly normal appearing tricuspid valve. TR envelope inadequate to estimate RVSP. There is trace tricuspid regurgitation. Pulmonic Valve: Pulmonic valve not well visualized. No pulmonic stenosis. No evidence of pulmonic regurgitation. Pericardium: Small pericardial effusion. Aorta: Mild aortic root dilatation. Pulmonary Artery: Normal pulmonary artery size. Conclusions: 1. Roughly low normal global left ventricular systolic function. Ejection Fraction is estimated at 50-60 %. Normal left ventricular cavity size. 2. Normal right ventricular size. Normal right ventricular systolic function. 3. Normal atrial septum at the start of the case. During the case atrial septostomy was performed resulting in an iatrogenic ASD at the end of the case. Predominant flow is [id number]. 4. Small pericardial effusion. 5. Mild aortic root dilatation. 6. No TINY thrombus seen. During the case a left atrial appendage occlusion device was deployed in the left atrial appendage. It appears well-seated. There is no color Doppler flow around the device. Electronically Signed By: Donavan Valadez MD 2022-07-17 11:54:13 CDT CC: CC: Implantable Cardiac Device Result Date: 07/17/2022 Narrative: Images from the original result were not included. [facility] [address] [facility],[id number] [place] [address], [address] Watchman Left Atrial Appendage Occluder Placement Procedure Report 72 year old male with atrial fibrillation with elevated CHADSVASC score and elevated bleeding risk referred for Watchman device. Attending physicians: Pedro Luis Gomze MD Access:8F RFV ->14F for device placement Catheter:Pigtail Injection:Left atrial appendage Closure:Perclose Anticoagulation:[id number] Heparin Air Kerma:74 mGy Fluoro time:3.2 min Contrast:27 ml Optiray Sedation:general per anesthesia Procedural details: After risks, benefits, and alternatives to the procedure were explained to the patient, they agreed to proceed. After signing informed consent the patient was brought to the cardiac catheterization laboratory/hybrid OR. They were prepped and draped in sterile fashion. General anesthesia was used. Cholo guidance was the provided by Dr. Valadez. A 6F sheath was inserted into the right femoral vein using the modified Seldinger technique, micropuncture access, and ultrasound guidance. We then advanced the Versacross catheter and wire. We then performed transseptal puncture using this system and CHOLO guidance. We confirmed appropriate height for the Watchman system. We advanced the catheter across the intra-atrial septum and advanced the wire into the left superior pulmonary vein. Heparin was administered to achieve an ACT greater than 300. Using the stiff wire as a rail, we then advanced the Watchman sheath into the left atrium. Left atrial pressure was 11mm Hg. We removed the stiff wire and then advanced the pigtail catheter into the left atrial appendage. We maneuvered the sheath into the appendage, and performed angiography as well. Baseline width of the appendage was 21mm. We then advanced a 27mm Watchman FLX device and deployedit using CHOLO and fluoroscopic guidance in the TINY ostium. Post deployment measurements were taken, with 14-21% compression. There was 0mm leak visualized by CHOLO or angiography. We satisfied PASS criteria and the device was released with excellent positioning. The system was removed and the access site was closed with the perclose sutures. Final CHOLO showed well seated device and a small iatrogenicASD (inherent to the procedure). There was no pericardial effusion noted at end of case. Patient was extubated and transferred to the PACU for further monitoring and care. A/P: Successful Watchman FLX procedure with 27mm device deployed. Continue optimal medical therapy. Further management per the cardiology and medicine teams. Pedro Luis Gomez MD 07/17/22 10:13 AM Current Facility-Administered Medications Medication Dose Route Frequency Provider Last Rate Last Admin acetaminophen (TYLENOL) tablet 1,000 mg 1,000 mg oral Q6H PRN Byron Torres MD 1,000 mg at 07/31/22 0110 albuterol 2.5 mg /3 mL (0.083 %) nebulizer solution 2.5 mg 2.5 mg nebulization Q6H PRN (RT) Brii Beverly MD amLODIPine (NORVASC) tablet 5 mg 5 mg oral Daily Brii Beverly MD 5 mg at 07/31/22829 aspirin enteric coated tablet 81 mg 81 mg oral Daily Steven Velez NP 81 mg at 07/31/22829 atorvastatin (LIPITOR) tablet 10 mg 10 mg oral Nightly StephanieSteven gil NP 10 mg at 07/30/222052 budesonide-formoteroL (SYMBICORT) 80-4.5 mcg/actuation inhaler 2 puff 2 puff inhalation BID (RT) Steven Velez NP 2 puff at 07/31/22 075 Carrier Fluids for Secondary Infusion - 0.9% Sodium Chloride 30 mL intravenous PRN Brii Beverly MD clopidogreL (PLAVIX) tablet 75 mg 75 mg oral Daily Steven Velez NP 75 mg at enoxaparin (LOVENOX) syringe 40 mg 40 mg subcutaneous Daily-2099 Byron Torres MD 40 mg at 07/30/222052 losartan (COZAAR) tablet 100 mg 100 mg oral Daily Brii Beverly MD 100 mg at 07/31/22829 metoprolol tartrate (LOPRESSOR) immediate release tablet 100 mg 100 mg oral BID Syeda Beverly MD 100 mg at 04/25/23 0830 ondansetron ODT (ZOFRAN-ODT) disintegrating tablet 4 mg 4 mg oral Q6H PRN Brii Beverly MD Or ondansetron (ZOFRAN) injection 4 mg 4 mg intravenous Q6H PRN Brii Beverly MD pantoprazole DR (PROTONIX) extended release tablet 40 mg 40 mg oral Daily AnokwBrii lentz MD 40 mg at 07/31/2230 polyethylene glycol (MIRALAX) packet 17 g 17 g oral Daily StephanieSteven gil NP 17 g at 07/31/22830 ramelteon (ROZEREM) tablet 8 mg 8 mg oral Nightly StephanieSteven NP 8 mg at 07/30/222052 senna-docusate (PERICOLACE) 8.6-50 mg per tablet 2 tablet 2 tablet oral BID StephanieSteven gil NP 2 tablet at 07/31/22829 sodium chloride (OCEAN) 0.65 % nasal spray 2 spray 2 spray each nostril Q2H PRN StephanieSteven gil NP sodium chloride 0.9% flush 0.5-20 mL 0.5-20 mL intra-catheter Q8H MONET Brii Beverly MD 10 mL at 07/30/222053 sodium chloride 0.9% flush 0.5-20 mL 0.5-20 mL intra-catheter PRN Brii Beverly MD terazosin (HYTRIN) capsule 10 mg 10 mg oral Nightly StephanieSteven gil PRESS OFFBEARER 10 mg at 07/30/222052 traZODone (DESYREL) tablet 50 mg 50 mg oral Nightly StephanieSteven NP 50 mg at 07/30/222052 A/P: Right maxillary sinus fractures - Incidentally found on CT head - EOM intact - CT facial bones: Slightly depressed fracture of the lateral wall of the right maxillary sinus, unchanged. - ENT consulted - HOB >30 degrees - Sinus precautions - [place] spray q2hr Right periprosthetic shoulder fracture - Orthopedic surgery consulted - Sling to RUE - NWB RUE pending further recommendations - Pain control, PT/OT Recurrent falls - Orthostatic vitals pending - Telemetry monitoring - UA negative - PT/OT evaluations pending Atrial fibrillation S/p Watchmen placement - Home regimen: metoprolol 100mg BID, ASA 81mg daily, Plavix 75mg daily - CHOLO (07/17/22): LVEF 50-60%, iatrogenic ASD due to septostomy, left atrial appendage occlusion device deployment - 07/29: HR elevated overnight, diltiazem IV x1 given - 07/30: HR intermittently elevated, resumed home metoprolol, Mg 1.8, 2g repleted - Cardiology consulted - Telemetry monitoring - Continue home regimen Hypertension/hyperlipidemia HFpEF - Home regimen: amlodipine 5mg daily, ASA 81mg daily, atorvastatin 10mg daily, losartan 50mg BID, terazosin 10mg daily - Continue home regimen - Recent CHOLO as above - Repeat TTE without significant changes - VS q4hr Anxiety/depression - Strict sleep hygiene - Ramelteon 8mg qHS - Trazodone 50mg qHS COPD, not in exacerbation - Symbicort BID - Nebs PRN - Goal SpO2 88-92% GERD - Protonix 40mg daily DVT ppx: lovenox My total encounter time on 07/31/2022 was 35 minutes which was spent in the activities documented inthe note. This includes time spent prior to the visit and after the visit in direct care of the patient. This time does not include time spent in any separately reportable services. Principal Problem: Frequent falls Resolved Problems: No resolved hospital problems. Amanda Montez NP 07/31/2022 10:51 AM * Yahaira Bartholomew NP - 07/31/2022 10:10 AM CDT Cardiology Progress Note 07/31/22 Symptoms: patient is hard of hearing and A&O x 1-2. Vital Signs: Patient Vital Signs for the past 24 hrs: BP MAP (mmHg) Temp Temp src Pulse Resp SpO2 Height Weight 07/31/22 0810 130/76 87 36 ??C (96.8 ??F) Temporal 89 18 95 % -- -- 07/31/22 0759 -- -- -- -- -- -- 97 % -- -- 07/31/22 0600 -- -- -- -- 71 -- -- -- -- 07/31/22 0400 -- -- -- -- 80 -- -- -- -- 07/31/22 0326 109/75 83 36.2 ??C (97.2 ??F) Temporal 85 20 99 % -- -- 07/31/22 0000 -- -- -- -- 95 -- -- -- -- 07/30/22 2250 141/76 90 36 ??C (96.8 ??F) Temporal 83 18 95 % -- -- 07/30/222199 -- -- -- -- 85 -- -- -- -- 07/30/221999 -- -- -- -- 104 -- -- -- -- 07/30/221958 -- -- -- -- -- -- 98 % -- -- 07/30/22 1948 118/87 93 36.1 ??C (96.9 ??F) Temporal 80 18 98 % -- -- 07/30/22 1800 -- -- -- -- 92 -- -- -- -- 07/30/22 1550 153/88 106 36.1 ??C (97 ??F) Temporal 105 18 96 % -- -- 07/30/22 1147 133/77 -- 36.2 ??C (97.1 ??F) Temporal 87 20 97 % 167.6 cm (5' 6 ) 81.8 kg (180 lb 5.4 oz) 07/30/22 1015 -- -- 37.1 ??C (98.8 ??F) -- 107 23 96 % -- -- Intake/Output Summary (Last 24 hours) at 07/31/2022 1010 Last data filed at 07/30/2022 1855 Gross per 24 hour Intake -- Output 500 ml Net -500 ml Wt Readings from Last 3 Encounters: 07/30/22 81.8 kg (180 lb 5.4 oz) 07/17/22 83.6 kg (184 lb 4.9 oz) 04/17/22 79.4 kg (175 lb) Physical Exam: Lungs: Clear to auscultation and percussion. Respirations unlabored Cardiac: PMI and JVP normal, S1 and S2 normal, no murmur, no gallop or rub Abd: Soft, nontender, BS active, no hepatosplenomegaly or masses, no abdominal bruit or enlarged aortic pulsation Extremities: No clubbing, cyanosis. No edema. Femoral pulses 2+. Pedal pulses 2+ Current Medications: Current Facility-Administered Medications Medication Dose Route Frequency Provider Last Rate Last Admin acetaminophen (TYLENOL) tablet 1,000 mg 1,000 mg oral Q6H PRN Byron Torres MD 1,000 mg at 07/31/22 0110 albuterol 2.5 mg /3 mL (0.083 %) nebulizer solution 2.5 mg 2.5 mg nebulization Q6H PRN (RT) Brii Beverly MD amLODIPine (NORVASC) tablet 5 mg 5 mg oral Daily Brii Beverly MD 5 mg at 07/31/22 0830 aspirin enteric coated tablet 81 mg 81 mg oral Daily Steven Velez NP 81 mg at 07/31/22829 atorvastatin (LIPITOR) tablet 10 mg 10 mg oral Nightly StephanieSteven gil NP 10 mg at 07/30/222052 budesonide-formoteroL (SYMBICORT) 80-4.5 mcg/actuation inhaler 2 puff 2 puff inhalation BID (RT) Steven Velez NP 2 puff at 07/31/22 075 Carrier Fluids for Secondary Infusion - 0.9% Sodium Chloride 30 mL intravenous PRN Brii Beverly MD clopidogreL (PLAVIX) tablet 75 mg 75 mg oral Daily Steven Velez NP 75 mg at 830 enoxaparin (LOVENOX) syringe 40 mg 40 mg subcutaneous Daily-2099 Byron Torres MD 40 mg at 04/24/23 2053 losartan (COZAAR) tablet 100 mg 100 mg oral Daily Brii Beverly MD 100 mg at 07/31/22829 metoprolol tartrate (LOPRESSOR) immediate release tablet 100 mg 100 mg oral BID Syeda eBverly MD 100 mg at 07/31/22829 ondansetron ODT (ZOFRAN-ODT) disintegrating tablet 4 mg 4 mg oral Q6H PRN Brii Beverly MD Or ondansetron (ZOFRAN) injection 4 mg 4 mg intravenous Q6H PRN Brii Beverly MD pantoprazole DR (PROTONIX) extended release tablet 40 mg 40 mg oral Daily Brii Beverly MD 40 mg at 07/31/22829 polyethylene glycol (MIRALAX) packet 17 g 17 g oral Daily StephanieSteven gil NP 17 g at 07/31/22830 ramelteon (ROZEREM) tablet 8 mg 8 mg oral Nightly StephanieSteven gil NP 8 mg at 07/30/222052 senna-docusate (PERICOLACE) 8.6-50 mg per tablet 2 tablet 2 tablet oral BID Steven Velez NP 2 tablet at 07/31/22829 sodium chloride (OCEAN) 0.65 % nasal spray 2 spray 2 spray each nostril Q2H PRN Steven Velez NP sodium chloride 0.9% flush 0.5-20 mL 0.5-20 mL intra-catheter Q8H MONET Brii Beverly MD 10 mL at 07/30/222053 sodium chloride 0.9% flush 0.5-20 mL 0.5-20 mL intra-catheter PRN Brii Beverly MD terazosin (HYTRIN) capsule 10 mg 10 mg oral Nightly StephanieSteven gil NP 10 mg at 07/30/222052 traZODone (DESYREL) tablet 50 mg 50 mg oral Nightly Rozina Velezy Mabel, PRESS OFFBEARER 50 mg at 07/30/222052 Labs: Recent Labs Lab Units 07/31/22 0254 07/29/222027 SODIUM mmol/L 136 140 POTASSIUM PLASMA mmol/L 3.8 3.7 CHLORIDE mmol/L 102 104 CO2 mmol/L 26 26 BUN SERUM mg/dL 17 15 CREATININE mg/dL 0.97 0.69* NES-HDS-UFPLZHN mL/min/1.73 m2 83 99 GLUCOSE mg/dL 101 150 CALCIUM mg/dL 8.5 8.7 ALBUMIN g/dL -- 3.4* PHOSPHORUS PLASMA mg/dL 3.7 -- Recent Labs Lab Units 07/29/222027 ALK PHOS Units/L 110 BILIRUBIN TOTAL mg/dL 0.6 TOTAL PROTEIN g/dL 5.8* ALT Units/L 55 AST Units/L 39 Recent Labs Lab Units 07/31/2225307/29/222027 WBC K/cumm 6.9 8.3 HEMOGLOBIN g/dL 9.5* 10.8* HEMATOCRIT % 28.1* 31.9* PLATELETS K/cumm 116* 163 Lab Results Component Value Date TSH 0.80 06/12/2021 Lab Results Component Value Date CHOL 113 06/12/2021 TRIG 92 06/12/2021 HDL 44 06/12/2021 LDLCALC 51 06/12/2021 No results found for: TROPONINT Telemetry: Cardiac Rhythm: Atrial fibrillation (07/31/22 0600) Cardiology Testing: EK07/29/22 ATRIAL FIBRILLATION WITH RAPID VENTRICULAR RESPONSE WITH ABERRANT CONDUCTION OR VENTRICULAR PREMATURE COMPLEXES LOW QRS VOLTAGE IN PRECORDIAL LEADS [QRS DEFLECTION < 1.0 mV IN CHEST LEADS] SEPTAL MYOCARDIAL INFARCTION , OF INDETERMINATE AGE [40+ ms Q WAVE IN V1/V2] ABNORMAL ECG Compared to prior EKG heart rate increased Echocardiogram: 07/30/22 Mild concentric left ventricular hypertrophy. Normal left ventricular size. Normal global left ventricular systolic function. Normal left ventricular diastolic function. Ejection fraction is visually estimated at 70 %. Normal right ventricular size. Normal right ventricular systolic function. There is mild enlargement of left atrium. The right atrium is normal in size. Impression: Cardiac atrial fibrillation with RVR status post watchman device earlier this month at [facility] Hypertension Hyperlipidemia Chronic heart failure with preserved ejection fraction COPD Falls Plan: Pressure and heart rate are well controlled Patient is suitable for discharge from cardiology standpoint to follow up [facility] primary [facility] will follow p.r.n. CC: Abiodun Novak MD Sinha, Chandni, MD * Serina Silverman, AUDIT LEAD - 07/31/2022 9:25 AM CDT Physical Therapy 07/31/22 0850 PT Last Visit Session Type Treatment Safe Environment Arm band checked;Patient found in supine;Session completed bedside;Gait belt utilized for all out of bed mobility Pain Assessment Pain Assessment No/denies pain Bed Mobility 1 Bed Mobility From 1 Supine Bed Mobility Type 1 To Bed Mobility to 1 Edge of bed Level of Assistance 1 Minimum Assist Bed Mobility Comments 1 rt ue nwb in sling Transfer 1 Transfer From 1 Bed;Sit Transfer Type 1 To and from Transfer to 1 Stand Technique 1 Sit to stand;Stand to sit Transfer Device 1 Wheeled walker Transfer Level of Assistance 1 Minimum Assist;Moderate Assist Ambulation 1 Distance (ft) 1 3-4 steps to chair Device 1 Wheeled walker Assistance 1 Moderate Assist;Minimum Assist Gait: Requires assist with 1 Maintaining balance Gait: Requires verbal cues to 1 Increase step length;Increase base of support Safe Environment End of Therapy Session Safe Environment End of Therapy Session Patient left in chair;Call light within reach;Overbed tablewithin reach Assessment Prognosis Good Problem List Decreased strength;Decreased range of motion;Decreased endurance;Impaired balance;Decreased mobility Plan Plan If this is the last note, consider this the discharge summary Recommendation/Plan PT Recommendation/Plan Longterm Facility Patient at high risk for Falls;Readmission;Injury due to decreased ability to care for self;Injury due to reduced functional status;Injury due to balance deficits Recommend SNF due to Risk of injury at home;Unable to safely care for self in the home;Skilled therapy needed to address care for self in the home;Skilled therapy needed to address functional deficits;Skilled therapy needed for patient to return to prior level of independence * Vanessa Evans, PT - 07/30/2022 2:31 PM CDT Physical Therapy 07/30/22 1333 General Chart Reviewed Yes Session Type Evaluation Safe Environment Patient found in supine;Arm band checked Subjective Agreeable to Therapy Additional Pertinent History hx of 4 brain bleeds, was living at assisted living per nursing. Ox1 normal for pt Family/Caregiver Present No Physical Therapy-Patient Goal unstated Precautions Precautions Bed/Chair Alarm;Fall risk Precaution Comments (S) R arm prox humeral fx impacted, facial fx. NWB in sling w R arm. (sinus precautions: HOB at 30 degrees at all times, no straining, no lifting more than 10 lbs, no nose blowing, open mouth sneezing) Home Living Type of Home (S) Assisted Living Facility (recieved info from nursing) Home Layout One level Home Access Level entry Home Mobility Equipment (unknown) Prior Function Level of [place] Needs assistance with ADLs;Independent with ambulation;Independent functionaltransfers Lives With (S) Alone ( may live in same location but unknown) Fall within the last 6 months Yes Fall within the last 6 months comment 3x in the last several days Pain Assessment Pain Assessment FLACC FLACC (Face, Legs, Activity, Crying, Consolability) Pain Rating: FLACC (Rest) - Face 1 Pain Rating: FLACC (Rest) - Legs 0 Pain Rating: FLACC (Rest) - Activity 0 Pain Rating: FLACC (Rest) - Cry 0 Pain Rating: FLACC (Rest) - Consolability 0 Score: FLACC (Rest) 1 Pain Rating: FLACC (Activity) - Face 0 Pain Rating: FLACC (Activity) - Legs 0 Pain Rating: FLACC (Activity) 0 Pain Rating: FLACC (Activity) - Cry 0 Pain Rating: FLACC (Activity) - Consolability 0 Score: FLACC (Activity) 0 Cognition Overall Cognitive Status Impaired Arousal/Alertness Alert Attention Span Appears intact Memory Decreased short term memory;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 Current communication Appears Intact Orientation Oriented to person Safety Judgment Decreased awareness of need for safety Balance Balance Yes Static Sitting Balance Static Sitting-Balance Support Bilateral upper extremity supported Static Sitting-Sitting Surface Bed Static Sitting-Level of Assistance Close supervision Static Standing Balance Static Standing-Balance Support Bilateral upper extremity supported Static Standing-Standing Surface Floor Static Standing-Level of Assistance Minimum assistance (x2) Bed Mobility Bed Mobility Yes Bed Mobility 1 Bed Mobility From 1 Supine Bed Mobility Type 1 To and from Bed Mobility to 1 Edge of bed Level of Assistance 1 Minimum Assist (x2) Transfers Transfer Yes Transfer 1 Transfer From 1 Bed;Sit Transfer Type 1 To and from Transfer to 1 Stand;Floor Technique 1 Stand to sit;Sit to stand Transfer Device 1 Hand held assist Transfer Level of Assistance 1 Minimum Assist (x2) Ambulation 1 Distance (ft) 1 3 steps Surface 1 Level tile Device 1 Hand held assist Assistance 1 Minimum Assist (x2) Gait: Requires assist with 1 Maintaining balance Gait: Requires verbal cues to 1 Increase step length;Increase base of support;Pace activity Quality of Gait 1 (S) dec stability in standing, wants to sit too early, dec endurance, unsteady RLE Assessment RLE Assessment WFL LLE Assessment LLE Assessment WFL Other Comments Other PT Comments does not remember that he fell and broke his arm. Basic Mobility - 6 Click How much difficulty does the patient have: Turning over in bed 3 How much difficulty does the patient currently have: Sitting down and standing up from a chair witharms? 3 How much difficulty does the patient have: Moving from lying on back to sitting on the side of the bed? 3 How much difficulty does the patient have: Moving to and from a bed to a chair including wheelchair? 3 How much help does the patient currently need: Walk in hospital room? 1 How much help from another person does the patient currently need: Climbing 3-5 steps with a railing? 1 Total 6 Click Score (range 6-24) 14 Score Interpretation 35.55 Safe Environment End of Therapy Session Safe Environment End of Therapy Session Patient left supine in bed;RN notified;Bed alarm in place and activated;Call light within reach;Overbed table within reach Assessment Prognosis Good Problem List Gait deviations;Decreased strength;Decreased range of motion;Decreased endurance;Impaired balance;Decreased mobility;Decreased cognition;Impaired judgement;Decreased safety awareness Barriers to Discharge Current Mobility Status Plan Plan Plan of care initiated;If this is the last note, consider this the discharge summary Recommendation/Plan PT Recommendation/Plan (S) Longterm Facility (cannot stand or get out of bed alone. pt will require 24 hr supervision due to cognition, fell 2x -3x at current home when alone per chart review) Patient at high risk for Falls;Readmission Recommend SNF due to Risk of injury at home;Unable to safely care for self in the home;Skilled therapy needed to address care for self in the home;Skilled therapy needed to address functional deficits;Skilled therapy needed for patient to return to prior level of independence PT Frequency during current admission Daily Treatment/Interventions during current admission Balance Training;Bed mobility;Endurance training;Functional activity;Gait training;Functional transfer training;Range of motion;Therapeutic activity;Strengthening;Therapeutic exercise;Transfer training PT Equipment Recommended None PT Evaluation Complete Yes * Damir Hargrove, OT - 07/30/2022 2:08 PM CDT Occupational Therapy Initial Evaluation Past Medical History: Diagnosis Date Acute cholecystitis Alcohol use Anxiety Atrial fibrillation (CMS/HCC) ([facility]) Blind legally blind BPH (benign prostatic hyperplasia) BPH (benign prostatic hyperplasia) CHF (congestive heart failure) (CMS/HCC) ([facility]) CHF (congestive heart failure) (CMS/HCC) ([facility]) Cholecystitis Chronic anemia COPD (chronic obstructive pulmonary disease) (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 Precautions Precautions Fall risk Weight Bearing Restrictions Yes RLE Weight Bearing NWB Braces/Orthoses Sling Precaution Comments Rt proximal humerus fx Home Living Type of Home Assisted Living Facility Home Layout One level Home Access Level entry Bathroom Shower/Tub Walk-in shower with threshold Bathroom Toilet Standard Bathroom Equipment Grab bars in shower/tub;Built-in shower seat;Hand-held shower Prior Function Level of [place] Needs assistance with ADLs;Independent functional transfers;Independent with ambulation;Dependent with homemaking Lives With Alone Receives Help From Other (Comment) (staff at facility) Driving No (pt states he has a car and still drives but was unable to state the last time he has driven) Fall within the last 6 months Yes Fall within the last 6 months comment 3 falls in day prior to admission ADL ADLS (WDL) X LE Dressing LE Dressing: Where assessed Sitting;Edge of bed LE Dressing: Level of assistance Dependent LE Dressing: Assistance with Don/doff R sock;Don/doff L sock Pain Assessment Pain Assessment No/denies pain Activity Tolerance Activity Tolerance Comments rest breaks with activity Cognition Overall Cognitive Status Impaired Arousal/Alertness Alert Memory Decreased recall of precautions;Decreased recall of recent events;Decreased short term memory Current communication Appears Intact Orientation Oriented to person (pt unable to recal current month or year, uncertain of place) Following Commands Follows one step commands with increased time Safety Judgment Decreased awareness of need for safety Insight Decreased awareness of deficits Compliance/Behavior Easy to engage Sensation Numbness/Tingling No Static Sitting Balance Static Sitting-Balance Support Left upper extremity supported;Feet supported Static Sitting-Sitting Surface Bed Static Sitting-Level of Assistance Close supervision Static Standing Balance Static Standing-Balance Support Left upper extremity supported Static Standing-Standing Surface Floor Static Standing-Level of Assistance Minimum assistance (min assist of 2) Bed Mobility 1 Bed Mobility From 1 Supine Bed Mobility Type 1 To and from Bed Mobility to 1 Edge of bed Level of Assistance 1 (min assist of 2) Transfer 1 Transfer From 1 Bed Transfer Type 1 To and from Transfer to 1 Stand Technique 1 Sit to stand;Stand to sit Transfer Device 1 Hand held assist Transfer Level of Assistance 1 (min assist o f 2, limited standing tolerance, fatigues quickly, sits without warning) RUE Assessment RUE Assessment (not tested due to orthopedic precautions) LUE Assessment LUE Assessment WFL Daily Activity - 6 Clicks Putting on and taking off regular lower body clothing 1 Bathing 2 Toileting 1 Putting on and taking off upper body clothing 2 Personal Grooming 2 Eating Meals 2 Total Score (range 6-24) 10 Score Interpretation 27.31 Safe Environment End of Therapy Session Safe Environment End of Therapy Session Patient left supine in bed;Bed alarm in place and activated;RN notified;Call light within reach;Overbed table within reach Assessment Prognosis Excellent Problem List Decreased cognition;Decreased upper extremity strength;Decreased safe judgment during ADL;Decreased balance;Decreased functional mobility;Decreased ADL independence Plan Plan Plan of care initiated;If this is the last note, consider this the discharge summary Recommendation/Plan OT Recommendation Longterm Facility Patient at high risk for Falls;Readmission;Injury due to reduced functional status;Injury due to decreased ability to care for self;Injury due to impaired cognition;Injury due to balance deficits;Injury at home as patient has not returned to prior level of function;Developing impaired skin integrity Recommend SNF due to Risk of injury at home;Skilled therapy needed to address care for self in the home;Unable to safely care for self in the home;Skilled therapy needed to address functional deficits;Skilled therapy needed for patient to return to prior level of independence OT Frequency during current admission 2-3x/wk (Mon-Fri, Sat PRN) Treatment/Interventions during current admission Balance Training;ADL/IADL retraining;Bed mobility;Functional activity;Functional mobility training;Strengthening;Therapeutic exercise OT Evaluation Complete Yes Multi-Disciplinary Problems (from Occupational Therapy) Active Problems Problem: Grooming Start Date: 07/30/22 Goal Start Date Expected End Date End Date STG - Patient will complete grooming 07/30/22 08/06/22 -- Goal Details: CGA seated at EOB Problem: Toileting Start Date: 07/30/22 Goal Start Date Expected End Date End Date STG - Patient will complete toileting tasks with 07/30/22 08/06/22 -- Goal Details: Mod assist Problem: Transfers Start Date: 07/30/22 Goal Start Date Expected End Date End Date STG - Patient will perform toilet transfer 07/30/22 08/06/22 -- Goal Details: Min assist of one Problem: OT Misc Start Date: 07/30/22 Goal Start Date Expected End Date End Date OT STG - Misc 1 07/30/22 08/06/22 -- Goal Details: Patient will tolerate left upper extremity strengthening x 10 repetitions each with good utilization of energy conservation techniques for improved functional capacity and upper extremity strength to improve independence with ADL completion. Problem: Eating Start Date: 07/30/22 Goal Start Date Expected End Date End Date STG - Patient will feed self 07/30/22 08/06/22 -- Goal Details: SBA documented in this encounter H&P Notes * Brii Beverly MD - 07/30/2022 4:15 AM CDT Images from the original note were not included. History and Physical Date of Service: 07/30/2022 Primary Care Physician: Abiodun Novak MD [phone] CHIEF COMPLAINT: Recurrent falls HPI: Patient is a 72 y.o. man with dementia, HTN, HLD, COPD, chronic HFpEF, chronic atrial fibrillation s/p Watchman device placement on 07/17/2022, among other medical problems. He presents from a senior care with report of recurrent falls. Per the patient, ???I fell again, at home. I was putting some stuff away in the closet. The next thing I know, I hit my head. ?I could not pop up. I just laid there. ?? Beyond these, the patient could not provide further details. It is reported that he has had 3 falls within the past 24 hours. He was evaluated at [place] following the 1st 2 falls and noted to have a fracture of the right humerus and and fractures involving the right maxilla and lateral aspect of the right orbital wall. Following his 3rd fall, he was brought to our hospital. In the ER, he was in atrial fibrillation with RVR. RVR improved following administration of diltiazem 15 mg IV and diltiazem ER 120 mg p.o.. He was also given potassium chloride and magnesium sulfate. CXR and CXR of the right shoulder confirmed proximal right humeral fracture through the surgical neck. CT of the head showed no acute intracranial process but identified facial fractures as previously stated. Past Medical History: Diagnosis Date Acute cholecystitis Alcohol use Anxiety Atrial fibrillation ([facility]) ([facility]) Blind legally blind BPH (benign prostatic hyperplasia) BPH (benign prostatic hyperplasia) CHF (congestive heart failure) ([facility]/HCC) ([facility]) CHF (congestive heart failure) ([facility]) ([facility] Cholecystitis Chronic anemia COPD (chronic obstructive pulmonary disease) ([facility]) (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 HTN (hypertension) Hyperlipidemia Hypertension TIA (transient ischemic attack) Vitamin D deficiency Past Surgical History: Procedure Laterality Date ABSCESS CATHETER INJECTION N/A 12/25/2019 ABSCESS CATHETER INJECTION N/A 01/04/2020 ABSCESS CATHETER INJECTION N/A 01/15/2020 CATARACT EXTRACTION, BILATERAL CHOLECYSTECTOMY CIRCUMCISION FLUID DRAIN SOFT TISSUE N/A 12/19/2019 IR CHOLANGIOGRAM THROUGH EXISTING CATHETER N/A 02/04/2020 VASECTOMY Allergies Allergen Reactions Penicillins Hives and Rash Social History Tobacco Use Smoking status: Every Day Packs/day: 1.00 Types: Cigarettes Start date: 1964 Smokeless tobacco: Never Substance and Sexual Activity Drug use: Yes Types: Alcohol Comment: Reportedly 3 shots of Tequila/day Sexual activity: Defer Alcohol Use: Heavy Drinker (07/04/2021) AUDIT-C Frequency of Alcohol Consumption: 4 or more times a week Average Number of Drinks: 3 or 4 Frequency of Binge Drinking: Less than monthly Family History Problem Relation Age of Onset Hypertension Mother Lung cancer Father Cancer Father Anesthesia problems Neg Hx Review of Systems: Except as documented in the HPI above, all other systems were reviewed and are negative. OBJECTIVE: Vitals: Arrival Vitals [07/29/222023] Temp (!) 35.7 ??C (96.3 ??F) Pulse 115 Resp 18 BP 150/96 SpO2 97 % Temp src Tympanic Heart Rate Source Patient Position BP Location FiO2 (%) Most Recent : Vitals: 07/29/22 2245 07/29/22 2330 07/30/22 0005 07/30/22 0120 BP: 145/92 138/92 Pulse: 94 89 116 56 Resp: 17 16 19 Temp: TempSrc: SpO2: 97% 100% 100% 97% Weight: Height: Physical Exam: Gen: In no acute distress Head: Normocephalic, atraumatic; no tenderness of the face Eyes: Very small periorbital bruise at the lateral angle of the right eye Neck: No JVD, supple ENT: Moist oral mucosa Heart/CV: Irregular rhythm, normal HR, normal S1/S2, no murmur/gallop, no pedal edema Lungs/Resp: Non-labored breathing, CTAB Abdomen/GI: Non-distended, soft and nontender; normal bowel sounds : No CVA tenderness MSK: Right upper extremity is immobilized with a shoulder sling Neuro: Alert; oriented to person; knows he is in the hospital but can not tell the name or city; not oriented to time Skin: Intact Psych: Blunt affect Lab/Radiology/Diagnostic Review: Recent Results (from the past 24 hour(s)) CBC with auto differential Collection Time: 07/29/22 8:28 PM Result Value Ref Range WBC 8.3 3.8 - 9.9 K/cumm Hgb 10.8 (L) 13.0 - 17.5 g/dL Hct 31.9 (L) 38.9 - 50.3 % Plt 163 150 - 400 K/cumm MPV 11.4 9.1 - 12.3 fL RBC 3.31 (L) 4.30 - 5.80 M/cumm MCV 96.4 81.3 - 96.4 fL MCH 32.6 27.1 - 33.3 pg MCHC 33.9 32.3 - 35.7 g/dL RDW CV 13.3 11.1 - 14.9 % RDW SD 47.8 35.7 - 48.1 fL NRBC abs 0.00 0.00 - 0.01 K/cumm Comprehensive metabolic panel Collection Time: 07/29/22 8:28 PM Result Value Ref Range Sodium 140 135 - 145 mmol/L Potassium, pl 3.7 3.3 - 4.9 mmol/L Chloride 104 97 - 110 mmol/L CO2 26 22 - 32 mmol/L Anion gap 10 2 - 15 mmol/L BUN 15 8 - 25 mg/dL Creatinine 0.69 (L) 0.80 - 1.30 mg/dL Glucose 150 70 - 199 mg/dL Calcium 8.7 8.5 - 10.3 mg/dL Bilirubin, total 0.6 0.1 - 1.2 mg/dL Protein, pl 5.8 (L) 6.5 - 8.5 g/dL Albumin 3.4 (L) 3.5 - 5.0 g/dL Alk phos 110 40 - 130 Units/L ALT 55 7 - 55 Units/L AST 39 10 - 50 Units/L Magnesium Collection Time: 07/29/22 8:28 PM Result Value Ref Range Magnesium 1.8 1.4 - 2.5 mg/dL Urinalysis reflex to microscopic and culture Urine Collection Time: 07/29/22 8:28 PM Specimen: Urine Result Value Ref Range Color, ur Yellow Yellow Clarity, ur Clear Clear Specific gravity, ur 1.019 1.003 - 1.030 pH, urine 6.5 Protein, ur ql Negative Negative Glucose, ur ql Negative Negative Ketones, ur Negative Negative Bilirubin, ur Negative Negative Blood, ur Negative Negative Urobilinogen, ur <2.0 <2.0 mg/dL Nitrite, ur Negative Negative Leukocyte esterase, ur Negative Negative UA reflex comment Reflex conditions for microscopic UA and culture not met. Creatine kinase (CK), total Collection Time: 07/29/22 8:28 PM Result Value Ref Range CK 47 40 - 300 Units/L Differential, auto Collection Time: 07/29/22 8:28 PM Result Value Ref Range Neutrophil abs 6.4 1.7 - 6.5 K/cumm Imm gran abs 0.0 0.0 - 0.1 K/cumm Lymphocyte abs 1.1 0.8 - 3.3 K/cumm Monocyte abs 0.6 0.2 - 0.8 K/cumm Eosinophil abs 0.1 0.0 - 0.5 K/cumm Basophil abs 0.0 0.0 - 0.1 K/cumm Neutrophil pct 77.9 % Imm gran pct 0.4 % Lymphocyte pct 13.2 % Monocyte pct 7.6 % Eosinophil pct 0.7 % Basophil pct 0.2 % eGFR Collection Time: 07/29/22 8:28 PM Result Value Ref Range eGFR 99 mL/min/1.73 m2 XR Chest 1 View Result Date: 07/29/2022 Narrative: EXAM DESCRIPTION: XR CHEST 1 VIEW REASON FOR STUDY: general weakness, c/f pna Pt presents to ED s/p FALL AT RETIREMENT ALERT TO SELF ONLY STAFF STATES SECOND FALL THIS WEEK Patient is a 72-year-old man with a history of dementia, hypertension, hyperlipidemia, heart failure with preserved ejection fraction, and atrial fibrillation status post Watchman 07/17 now off anticoagulation who presents with recurrent falls. Apparently fell last night. Seen at [facility] and diagnosed with question proximal humerus fracture on right. Subsequently fell and was seen there again. Had yet another fall tonight prompting transfer here. Patient denies any current complaints but is unable to provide additional history secondary to dementia. TECHNIQUE: One radiographic view of the chest acquired.COMPARISON: None FINDINGS: LUNGS/PLEURA: No focal consolidation or pneumothorax. No pleural effusion. Elevation right hemidiaphragm with atelectasis at the right lung base. HEART/MEDIASTINUM: Heart size is normal. Normal mediastinal and hilar contours. HARDWARE/LINES/TUBES: None. BONES: Impacted fracture of the proximal right humerus. OTHER: No other significant finding. IMPRESSION: Impacted fracture of the proximal right humerus. THIS IS AN ELECTRONICALLY VERIFIED FINAL REPORT 07/29/2022 10:18 PM - Electronically signed by Bryson Owen M.D. KT: SOHAIL Report ID: [id number] Reading Location: [id number] XR Shoulder Right 2 or More Views Result Date: 07/29/2022 Narrative: EXAM DESCRIPTION: XR SHOULDER RIGHT 2 OR MORE VIEWS REASON FOR STUDY: known fx, ?prox hum, c/f fx Pt presents to ED s/p FALL AT RETIREMENT ALERT TO SELF ONLY STAFF STATES SECOND FALL THIS WEEK Patient is a 72-year-old man with a history of dementia, hypertension, hyperlipidemia, heart failure with preserved ejection fraction, and atrial fibrillation status post Watchman 07/17 now off a nticoagulation who presents with recurrent falls. Apparently fell last night. Seen at [facility] and diagnosed with question proximal humerus fracture on right. Subsequently fell and was seen there again. Had yet another fall tonight prompting transfer here. Patient denies any current complaints but is unable to provide additional history secondary to dementia. TECHNIQUE: Internal and external rotation views of the right shoulder were obtained. COMPARISON: None FINDINGS: BONES/JOINTS: There is an impacted fracture through the surgical neck of the proximal right humerus. Degenerative narrowingof the right glenohumeral joint. There is osteophytic spurring about the right acromioclavicular joint. SOFT TISSUES: Unremarkable. VISUALIZED RIBS AND LUNG: No significant finding. OTHER: No significant finding. IMPRESSION: Impacted fracture through the surgical neck of the proximal right humerus.THIS IS AN ELECTRONICALLY VERIFIED FINAL REPORT 07/29/2022 10:17 PM - Electronically signed by Annika Owen M.D. KT: SOHAIL Report ID: [id number] Location: [id number] CT Head WO Contrast Result Date: 07/29/2022 Narrative: EXAM DESCRIPTION: CT HEAD WO CONTRAST REASON FOR STUDY: Head trauma, minor (Age => 66y) Pt arrived from senior care after a fall today. Unknown if pt hit head. Pt poor historian and confused. Prior fall one week ago. Hx of HTN, TIA TECHNIQUE: Axial images acquired through the brain without intravenous contrast. Images stored on PACS. Automated exposure control was used as a dose optimization technique for this examination. COMPARISON: 10/07/2021 FINDINGS: BRAIN: No hemorrhage, edema or mass effect. No recent infarct. Nonspecific periventricular and subcortical white matter hypoattenuation which can be seen as sequela of chronic small vessel ischemic disease. There is intraoperative appropriate cerebral volume loss with ex vacuo dilatation of the ventricular system, not substantially changed. No acute intraventricular hemorrhage. Basal cisterns are patent. EXTRA-AXIAL SPACES: No fluid collections. No masses. CALVARIUM: No acute calvarial fracture. SINUSES/MASTOIDS: Thereis an acute comminuted and mildly displaced fracture of the lateral wall of the right maxillary sinus possibly extending to the posterior wall right maxillary sinus with locules of gas extending adjacent to right lateral orbital wall. There is a subtle cortical step-off along the lateral right orbital wall likely reflective of an acute minimally displaced fracture. There is mucosal thickening of the right maxillary sinus with superimposed small volume hemorrhage. Mild mucosal thickening of the ethmoid air cells. Otherwise, no fluid or mucosal thickening. ORBITS: No significant abnormality. There is mild right edna-maxillary facial contusion. IMPRESSION: 1. No acute intracranial findings. 2.Acute comminuted and mildly displaced fracture of the lateral wall right maxillary sinus possibly ex tending to the posterior wall. Subtle cortical step-off along the lateral right orbital wall likelyreflective of an acute minimally displaced fracture. 3. Mild right edna-maxillary facial contusion.THIS IS AN ELECTRONICALLY VERIFIED FINAL REPORT 07/29/2022 9:46 PM - Electronically signed by Destiny Mullen M.D. AT: AT Report ID: [id number] Reading Location: [place] [id number] ASSESSMENT/PLAN: Recurrent falls -uncertain if associated with loss of consciousness -possibly precipitated by AFib with RVR -up with assist, fall precautions, PT evaluation requested Chronic AFib with RVR -RVR improved with interventions in the ER -it seems metoprolol tartrate 100 mg b.i.d. was not restarted following Watchman procedure -resume metoprolol; monitor on telemetry Right humeral fracture, facial fractures -acute fractures; due to recent trauma -no surgical interventions; continue RUE. immobilization with sling -PT/OT evaluation requested HTN: Resume metoprolol and losartan GERD: Continue PPI Chronic HFpEF: Not in acute exacerbation COPD: P.r.n. MDI ordered DVT prophylaxis: Lovenox; he is also on Plavix Full Code ESTIMATED LENGTH OF STAY: More than 2 midnights Medical Decision Making Complexity: Moderate Voice recognition software MModal Fluency Direct may have been used to dictate and transcribe this document. Spiritual Advisor variances may occur. Despite proofreading, typographical errors may occur. Brii Beverly MD 07/30/2022 4:15 AM documented in this encounter Consult Notes * Mario Jameson PA - 08/02/2022 7:33 AM CDTAssociated Order(s): IP CONSULT TO ORTHOPEDIC SURGERY Ortho Trauma Consult Reason for Consult: right proximal humerus fracture Requesting Provider: Steven Velez NP Requesting Service: Medicine Attending Physician: Janice Corea MD Subjective Patient is a 72 y.o. male with chief complaint of right proximal humerus fracture . HPI: Patient is a 72 y.o. man with dementia, HTN, HLD, COPD, CHF, chronic atrial and medical problems listed below. He presented from a senior care on 07/29 with report of recurrent falls. Due to delays in communication ortho was unaware of the consult request until yesterday. It is reported that he has had 3 falls prior to admission. He was evaluated at [place] following the 1st 2 falls and noted to have a fracture of the right humerus and and fractures involving the right maxilla and lateral aspect of the right orbital wall. It is unclear if there has been any previous ortho consultation and recommendations,. Following his 3rd fall, he was brought to our hospital. Past Medical History: Diagnosis Date Acute cholecystitis Alcohol use Anxiety Atrial fibrillation (CMS/HCC) ([facility]) Blind legally blind BPH (benign prostatic hyperplasia) BPH (benign prostatic hyperplasia) CHF (congestive heart failure) (CMS/HCC) (HCC) CHF (congestive heart failure) (CMS/HCC) (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 HTN (hypertension) Hyperlipidemia Hypertension TIA (transient ischemic attack) Vitamin D deficiency Past Surgical History: Procedure Laterality Date ABSCESS CATHETER INJECTION N/A 12/25/2019 ABSCESS CATHETER INJECTION N/A 01/04/2020 ABSCESS CATHETER INJECTION N/A 01/15/2020 CATARACT EXTRACTION, BILATERAL CHOLECYSTECTOMY CIRCUMCISION FLUID DRAIN SOFT TISSUE N/A 12/19/2019 IR CHOLANGIOGRAM THROUGH EXISTING CATHETER N/A 02/04/2020 VASECTOMY Medications Prior to Admission Medication Sig Dispense Refill Last Dose acetaminophen (TYLENOL) 325 mg tablet Take 2 tablets (650 mg total) by mouth every 4 (four) hours as needed for pain 30 tablet 0 Past Week albuterol 2.5 mg /3 mL (0.083 %) nebulizer solution Take 3 mL (2.5 mg total) by nebulization every 6 (six) hours as needed for wheezing Past Week amLODIPine (NORVASC) 5 mg tablet Take 1 tablet (5 mg total) by mouth daily 30 tablet 11 Past Week aspirin 81 mg enteric coated tablet Take 1 tablet (81 mg total) by mouth daily Past Week atorvastatin (LIPITOR) 10 mg tablet Take 1 tablet (10 mg total) by mouth nightly Past Week cholecalciferol (VITAMIN D-3) 5,000 unit tablet Take 1 tablet (5,000 Units total) by mouth every other day Past Week divalproex DR (DEPAKOTE) 250 mg EC tablet Take 125 mg by mouth 3 (three) times a day as needed (Increasing agitation) Past Week fluticasone propion-salmeteroL (ADVAIR DISKUS) 100-50 mcg/dose diskus inhaler Inhale 1 puff daily Rinse mouth with water after use. Do not swallow. Past Week folic acid (FOLVITE) 1 mg tablet Take 1 tablet (1 mg total) by mouth daily Past Week losartan (COZAAR) 50 mg tablet Take 1 tablet (50 mg total) by mouth daily (Patient taking differently: Take 1 tablet (50 mg total) by mouth 2 (two) times a day) 30 tablet 11 Past Week metoprolol (LOPRESSOR) 100 mg tablet Take 1 tablet (100 mg total) by mouth 2 (two) times a day 180 tablet 3 Past Week pantoprazole DR (PROTONIX) 40 mg EC tablet Take 1 tablet (40 mg total) by mouth daily Past Week ramelteon (ROZEREM) 8 mg tablet Take 1 tablet (8 mg total) by mouth nightly 30 tablet 11 Past Week senna (SENOKOT) 8.6 mg tablet Take 1 tablet by mouth 2 (two) times a day Past Week terazosin (HYTRIN) 10 mg capsule Take 1 capsule (10 mg total) by mouth daily Past Week fluticasone furoate-vilanteroL (BREO ELLIPTA) 100-25 mcg/dose diskus inhaler Inhale 1 puff once daily Rinse mouth with water after use. Do not swallow. multivit,tx with iron,minerals (THERA-M ORAL) Take 1 tablet by mouth every morning (Patient not taking: Reported on 04/17/2022) QUEtiapine (SEROquel) 25 mg tablet Take 1 tablet (25 mg total) by mouth every 6 (six) hours as needed (agitation) (Patient not taking: Reported on 04/17/2022) Allergies Allergen Reactions Penicillins Hives and Rash Social History Tobacco Use Smoking status: Every Day Packs/day: 1.00 Types: Cigarettes Start date: 1964 Smokeless tobacco: Never Substance and Sexual Activity Drug use: Yes Types: Alcohol Comment: Reportedly 3 shots of Tequila/day Sexual activity: Defer Alcohol Use: Not At Risk (07/30/2022) AUDIT-C Frequency of Alcohol Consumption: Never Average Number of Drinks: Patient does not drink Frequency of Binge Drinking: Never Family History Problem Relation Age of Onset Hypertension Mother Lung cancer Father Cancer Father Anesthesia problems Neg Hx Review of Systems: Review of systems not obtained due to: unable to communicate due to patient's dementia, patient responded to verbal cues however he did not answer questions directly. Objective Vitals: Vitals: 08/02/22 0723 BP: 138/93 Pulse: 84 Resp: 18 Temp: 36.4 ??C (97.6 ??F) SpO2: 96% Physical Exam: Well-developed, well-nourished, in no acute distress. Patient was resting comfortably in his bed atthe time of examination Alert and oriented to person only. Normal respirations, no dyspnea with speaking. The uninjured extremities are warm and show good perfusion; neurologically intact to light touch throughout. Skin is intact and there is no lymphedema. The injured extremity shows right upper extremity resting comfortably at the patient's side. The arm is in a sling however the patient has removed the sling strap from around his neck as he does not like having it here, due to his dementia he does not follow instructions on this. He is neurovascularly intact in the distal right upper extremity, no tenderness to palpation or range of motion of thewrist. Diffuse edema with no significant ecchymosis at this time is noted to the right upper extremity. No tenderness to palpation of the elbow, range of motion of the elbow does cause pain in the upper arm. The contralateral extremity shows normal inspection, palpation, range of motion, strength, and stability. Lab/Diagnostic Review: Laboratory review: Lab results in the last 24 hours: Recent Results (from the past 24 hour(s)) CBC without differential Collection Time: 08/02/22 4:22 AM Result Value Ref Range WBC 6.7 3.8 - 9.9 K/cumm Hgb 8.8 (L) 13.0 - 17.5 g/dL Hct 26.2 (L) 38.9 - 50.3 % Plt 125 (L) 150 - 400 K/cumm MPV 10.5 9.1 - 12.3 fL RBC 2.69 (L) 4.30 - 5.80 M/cumm MCV 97.4 (H) 81.3 - 96.4 fL MCH 32.7 27.1 - 33.3 pg MCHC 33.6 32.3 - 35.7 g/dL RDW CV 13.5 11.1 - 14.9 % RDW SD 47.6 35.7 - 48.1 fL NRBC abs 0.00 0.00 - 0.01 K/cumm Magnesium Collection Time: 08/02/22 4:22 AM Result Value Ref Range Magnesium 1.8 1.4 - 2.5 mg/dL Phosphorus Collection Time: 08/02/22 4:22 AM Result Value Ref Range Phosphorus, pl 3.5 2.3 - 4.5 mg/dL Imaging review: EXAM DESCRIPTION: XR SHOULDER RIGHT 2 OR MORE VIEWS REASON FOR STUDY: known fx, ?prox hum, c/f fx Pt presents to ED s/p FALL AT RETIREMENT ALERT TO SELF ONLY STAFF STATES SECOND FALL THIS WEEK Patient is a 72-year-old man with a history of dementia, hypertension, hyperlipidemia, heart failure with preserved ejection fraction, and atrial fibrillation status post Watchman 07/17 now off anticoagulation who presents with recurrent falls. Apparently fell last night. Seen at [facility] and diagnosed with question proximal humerus fracture on right. Subsequently fell and was seen there again. Had yet another fall tonight prompting transfer here. Patient denies any current complaints but is unable to provide additional history secondary to dementia. TECHNIQUE: Internal and external rotation views of the right shoulder were obtained. COMPARISON: None FINDINGS: BONES/JOINTS: There is an impacted fracture through the surgical neck of the proximal right humerus. Degenerative narrowing of the right glenohumeral joint. There is osteophytic spurring about the right acromioclavicular joint. SOFT TISSUES: Unremarkable. VISUALIZED RIBS AND LUNG: No significant finding. OTHER: No significant finding. IMPRESSION: Impacted fracture through the surgical neck of the proximal right humerus. THIS IS AN ELECTRONICALLY VERIFIED FINAL REPORT 07/29/2022 10:17 PM - Electronically signed by Bryson Owen M.D. KT: SOHAIL Report ID: [id number] Reading Location: [place] [id number] Radiology Review: I have reviewed the imaging with the following findings: comminuted proximal humerus fracture that appears to involve the surgical and anatomical necks. Assessment /Plan Assessment/Plan: Right comminuted proximal humerus fracture. Due to the patient's dementia and inability to follow guidelines and instructions for his shoulder as well as his frequent falls he would make a poor surgical candidate at this time. Recommend sling for comfort and to continue oral medications for pain control per the admitting provider. Patient's pain is currently controlled with oral Tylenol. Based onhis limitations and his performance with therapy at this time I recommend that he be discharged to a senior living facility. Patient should use a wheelchair for transportation and should be closelymonitored for transfers from bed as well as on and off the commode. Sling to the right upper extremity and nonweightbearing to the right upper extremity through the remainder of his healing process. Recommend follow-up in the outpatient setting in approximately 4 weeks to evaluate the fracture withx-ray. Patient may follow up with [facility] Orthopedics or he may choose to follow up with an orthopedic office that is closer to his senior living facility that he is planning to be discharged to. DVT prophylaxis is currently being handled by the medicine team. We appreciate this consultation and allowing us to participate in this patient's plan of care. I have discussed this patient's plan of care in its entirety with Dr. Saunders, he is in agreeance with this plan. * Jemma Martines, DO - 07/30/2022 5:40 PM CDTAssociated Order(s): IP CONSULT TO ENT ENT Consult Reason for Consult: facial injury Requesting Provider: Genoveva Kumar MD SUBJECTIVE: Patient is a 72 y.o. male with chief complaint of facial injury. HPI: Jania Guajardo reported location of complaint was face. This compliant quality was reported as suddenonset and has a severity of moderate. The duration of this complaint was the last 1-2 days. Onset of this problems was 1-2 days and was associated with right arm fracture. Per ED: Patient is a 72-year-old man with a history of dementia, hypertension, hyperlipidemia, heart failure with preserved ejection fraction, and atrial fibrillation status post Watchman 07/17 now off anticoagulation who presents with recurrent falls. Apparently fell last night. Seen at [facility] and diagnosed with question proximal hum[facility] fracture [facility] right[facility] Had yet another fall tonight prompting transfer here. Patient denies any current complaints but is unable to provide additional history secondary to dementia. 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 HTN (hypertension) Hyperlipidemia Hypertension TIA (transient ischemic attack) Vitamin D deficiency Past Surgical History: Procedure Laterality Date ABSCESS CATHETER INJECTION N/A 12/25/2019 ABSCESS CATHETER INJECTION N/A 01/04/2020 ABSCESS CATHETER INJECTION N/A 01/15/2020 CATARACT EXTRACTION, BILATERAL CHOLECYSTECTOMY CIRCUMCISION FLUID DRAIN SOFT TISSUE N/A 12/19/2019 IR CHOLANGIOGRAM THROUGH EXISTING CATHETER N/A 02/04/2020 VASECTOMY HOME MEDICATIONS : acetaminophen (TYLENOL) 325 mg tablet albuterol 2.5 mg /3 mL (0.083 %) nebulizer solution amLODIPine (NORVASC) 5 mg tablet aspirin 81 mg enteric coated tablet atorvastatin (LIPITOR) 10 mg tablet cholecalciferol (VITAMIN D-3) 5,[address] (DEPAKOTE) 250 mg EC tablet fluticasone propion-salmeteroL (ADVAIR DISKUS) 100-50 mcg/dose diskus inhaler folic acid (FOLVITE) 1 mg tablet losartan (COZAAR) 50 mg tablet metoprolol (LOPRESSOR) [address] (PROTONIX) 40 mg EC tablet ramelteon (ROZEREM) 8 mg tablet senna (SENOKOT) 8.6 mg tablet terazosin (HYTRIN) 10 mg capsule fluticasone furoate-vilanteroL (BREO ELLIPTA) 100-25 mcg/dose diskus inhaler multivit,tx with iron,minerals (THERA-M ORAL) QUEtiapine (SEROquel) 25 mg tablet clopidogreL (PLAVIX) 75 mg tablet pravastatin (PRAVACHOL) 40 mg tablet thiamine (VITAMIN B1) 100 mg tablet Allergies Allergen Reactions Penicillins Hives and Rash Social History Tobacco Use Smoking status: Every Day Packs/day: 1.00 Types: Cigarettes Start date: 1964 Smokeless tobacco: Never Substance and Sexual Activity Drug use: Yes Types: Alcohol Comment: Reportedly 3 shots of Tequila/day Sexual activity: Defer Alcohol Use: Not At Risk (07/30/2022) AUDIT-C Frequency of Alcohol Consumption: Never Average Number of Drinks: Patient does not drink Frequency of Binge Drinking: Never Family History Problem Relation Age of Onset Hypertension Mother Lung cancer Father Cancer Father Anesthesia problems Neg Hx Review of Systems Constitutional: Negative. Negative for chills, fatigue and fever. HENT: Positive for facial swelling. Negative for congestion, ear discharge, ear pain, hearing loss,nosebleeds, sinus pressure, sore throat, tinnitus, trouble swallowing and voice change. Eyes: Negative. Negative for pain and discharge. Respiratory: Negative for apnea, cough, choking, shortness of breath, wheezing and stridor. Cardiovascular: Negative for chest pain, palpitations and leg swelling. Gastrointestinal: Negative for abdominal pain, constipation, nausea and vomiting. Negative for Heartburn, trouble swallowing foods or liquids Endocrine: Negative. Negative for cold intolerance and heat intolerance. Musculoskeletal: Negative. Negative for arthralgias, joint swelling, myalgias, neck pain and neck stiffness. Skin: Negative. Negative for color change, rash and wound. Negative for new skin lesions Allergic/Immunologic: Negative. Negative for environmental allergies and food allergies. Neurological: Negative. Negative for dizziness, syncope, speech difficulty, light-headedness and headaches. Hematological: Negative. Negative for adenopathy. Does not bruise/bleed easily. Psychiatric/Behavioral: Negative for agitation, behavioral problems and dysphoric mood. The patientis not nervous/anxious. Temp (24hrs), Av.3 ??C (97.3 ??F), Min:35.7 ??C (96.3 ??F), Max:37.1 ??C (98.8 ??F) Vitals: 07/30/22 0915 07/30/22 1015 07/30/22 1147 07/30/22 1550 BP: 130/85 133/77 153/88 BP Location: Left arm Left arm Patient Position: Lying Lying Pulse: 103 107 87 105 Resp: Temp: 37.1 ??C (98.8 ??F) 36.2 ??C (97.1 ??F) 36.1 ??C (97 ??F) TempSrc: Temporal Temporal SpO2: 96% 96% 97% 96% Weight: 81.8 kg (180 lb 5.4 oz) Height: 167.6 cm (5' 6 ) No intake/output data recorded. No intake/output data recorded. OBJECTIVE: Physical Exam Constitutional: Appearance: He is well-developed. HENT: Head: Normocephalic and atraumatic. Right Ear: External ear normal. Left Ear: External ear normal. Ears: Comments: Right ear: Cerumen impaction completely obstructing view of tympanic membrane Left ear: Cerumen impaction completely obstructing view of tympanic membrane Nose: Mucosal edema present. No nasal deformity or rhinorrhea. Mouth/Throat: Mouth: Mucous membranes are moist. Pharynx: Uvula midline. Comments: Severe dental caries Eyes: General: Lids are normal. Conjunctiva/sclera: Conjunctivae normal. Pupils: Pupils are equal, round, and reactive to light. Neck: Vascular: No JVD. Trachea: Trachea normal. Pulmonary: Effort: Pulmonary effort is normal. Musculoskeletal: General: Normal range of motion. Cervical back: Full passive range of motion without pain. Lymphadenopathy: Cervical: No cervical adenopathy. Skin: General: Skin is warm and dry. Neurological: Mental Status: He is alert and oriented to person, place, and time. Cranial Nerves: No cranial nerve deficit. Psychiatric: Speech: Speech normal. Behavior: Behavior normal. Behavior is cooperative. Thought Content: Thought content normal. Judgment: Judgment normal. Examination of the pharynx with use of the laryngeal mirror was not able to be performed due to patient discomfort Neck: no palpable abnormality of submandibular or parotid gland Facial Nerve strength intact and symmetric Lab/Radiology/Diagnostic Review: Recent Results (from the past 24 hour(s)) CBC with auto differential Collection Time: 07/29/22 8:28 PM Result Value Ref Range WBC 8.3 3.8 - 9.9 K/cumm Hgb 10.8 (L) 13.0 - 17.5 g/dL Hct 31.9 (L) 38.9 - 50.3 % Plt 163 150 - 400 K/cumm MPV 11.4 9.1 - 12.3 fL RBC 3.31 (L) 4.30 - 5.80 M/cumm MCV 96.4 81.3 - 96.4 fL MCH 32.6 27.1 - 33.3 pg MCHC 33.9 32.3 - 35.7 g/dL RDW CV 13.3 11.1 - 14.9 % RDW SD 47.8 35.7 - 48.1 fL NRBC abs 0.00 0.00 - 0.01 K/cumm Comprehensive metabolic panel Collection Time: 07/29/22 8:28 PM Result Value Ref Range Sodium 140 135 - 145 mmol/L Potassium, pl 3.7 3.3 - 4.9 mmol/L Chloride 104 97 - 110 mmol/L CO2 26 22 - 32 mmol/L Anion gap 10 2 - 15 mmol/L BUN 15 8 - 25 mg/dL Creatinine 0.69 (L) 0.80 - 1.30 mg/dL Glucose 150 70 - 199 mg/dL Calcium 8.7 8.5 - 10.3 mg/dL Bilirubin, total 0.6 0.1 - 1.2 mg/dL Protein, pl 5.8 (L) 6.5 - 8.5 g/dL Albumin 3.4 (L) 3.5 - 5.0 g/dL Alk phos 110 40 - 130 Units/L ALT 55 7 - 55 Units/L AST 39 10 - 50 Units/L Magnesium Collection Time: 07/29/22 8:28 PM Result Value Ref Range Magnesium 1.8 1.4 - 2.5 mg/dL Urinalysis reflex to microscopic and culture Urine Collection Time: 07/29/22 8:28 PM Specimen: Urine Result Value Ref Range Color, ur Yellow Yellow Clarity, ur Clear Clear Specific gravity, ur 1.019 1.003 - 1.030 pH, urine 6.5 Protein, ur ql Negative Negative Glucose, ur ql Negative Negative Ketones, ur Negative Negative Bilirubin, ur Negative Negative Blood, ur Negative Negative Urobilinogen, ur <2.0 <2.0 mg/dL Nitrite, ur Negative Negative Leukocyte esterase, ur Negative Negative UA reflex comment Reflex conditions for microscopic UA and culture not met. Creatine kinase (CK), total Collection Time: 07/29/22 8:28 PM Result Value Ref Range CK 47 40 - 300 Units/L Differential, auto Collection Time: 07/29/22 8:28 PM Result Value Ref Range Neutrophil abs 6.4 1.7 - 6.5 K/cumm Imm gran abs 0.0 0.0 - 0.1 K/cumm Lymphocyte abs 1.1 0.8 - 3.3 K/cumm Monocyte abs 0.6 0.2 - 0.8 K/cumm Eosinophil abs 0.1 0.0 - 0.5 K/cumm Basophil abs 0.0 0.0 - 0.1 K/cumm Neutrophil pct 77.9 % Imm gran pct 0.4 % Lymphocyte pct 13.2 % Monocyte pct 7.6 % Eosinophil pct 0.7 % Basophil pct 0.2 % eGFR Collection Time: 07/29/22 8:28 PM Result Value Ref Range eGFR 99 mL/min/1.73 m2 Transthoracic Echo (TTE) Limited/Followup Result Date: 07/30/2022 Narrative: [address] [place] [address] Limited Echocardiogram Report Patient Name: JANIA GUAJARDO : 1950 Study Date: 07/30/2022 3:11:27 PM Gender: M Tech: JEFFREY Location: [id number] Ref.Provider: STEVEN VELEZ Height(Cm): 180 BSA: 1.85 Weight(Kg): 68.5 Quality: Adequate Procedures: EchocardiographicReport: Limited transthoracic echocardiogram with 2D and M- Mode. Indications: hx atrial septostomy with iatrogenic ASD July 2022, left atrial appendage occlusion device placement. Measurements: Findings: Atrial Septum: The atrial septum is not well visualized. Aorta: Normal aortic root. Left Ventricle: Mild concentric left ventricular hypertrophy. Normal left ventricular size. Normal global leftventricular systolic function. Normal left ventricular diastolic function. Ejection fraction is visually estimated at 70 %. Left Atrium: There is mild enlargement of left atrium. Right Ventricle: Normal right ventricular size. Normal right ventricular systolic function. Right Atrium: The right atrium is normal in size. Mitral Valve: Normal structure of the mitral valve. Pulmonic Valve: Pulmonic valve not well visualized. Tricuspid Valve: Normal structure of the tricuspid valve. Pericardium: Normal pericardium with no significant pericardial effusion. Conclusions: Mild concentric left ventricular hypertrophy. Normal left ventricular size. Normal global left ventricular systolic function. Normal left ventricular diastolic function. Ejection fraction is visually estimated at 70 %. Normal right ventricular size. Normal right ventricular systolic function. There is mild enlargement of left at rium. The right atrium is normal in size. Electronically Signed By: Stnaford Vang 2022-07-30 15:38:36 CDT CC: CC: CT Facial Bones WO Contrast Result Date: 07/30/2022 Narrative: EXAM DESCRIPTION: CT FACIAL BONES WO CONTRAST REASON FOR STUDY: Facial fracture, follow up Fell yesterday, known orbit fracture TECHNIQUE: Noncontrast computed tomography images through the paranasal sinuses. Reconstructed MPR images reviewed. All images stored on PACS. Automated exposure control was used as a dose optimization technique for this examination. COMPARISON: 07/29/2022 FINDINGS: BONES: The slightly depressed fracture of the lateral wall of the right maxillary sinus is unchanged. Very small amount of subcutaneous emphysema is unchanged. SOFT TISSUES: No abscess. No inflammatory changes. SINUSES: A small amount of fluid and mucosal thickening in the right maxillary sinus is unchanged. NASAL CAVITY: Midline nasal septum. ORBITS: No significant abnormalities visualized. TMJ: A large amount of patient motion simulates fractures of the mandible. If a mandibular fracture is suspected clinically, CT of the mandible is recommended MASTOIDS: Well-aerated. IACs symmetric,grossly normal. BRAIN: Limited view. No acute findings. OTHER: No other significant finding. IMPRESSION: Slightly depressed fracture of the lateral wall of the right maxillary sinus, unchanged. Largeamount of patient motion simulating fractures of the mandible. If a mandibular fracture is suspected clinically, CT of the mandible is recommended. THIS IS AN ELECTRONICALLY VERIFIED FINAL REPORT 07/30/2022 12:42 PM - Electronically signed by Anastacio Chakraborty M.D. JEFFREY: JEFFREY Report ID: [id number] Reading Location: [id number] ECG 12 lead Result Date: 07/30/2022 Narrative: Vent Rate: 129 bpm RR Interval: 464 msec NJ Interval: 0 msec QRS Duration: 78 msec QT Interval: 315 msec QTC Interval: 391 msec P-R-T [place]: 0 - 24 - -29 degrees ATRIAL FIBRILLATION WITH RAPID VENTRICULAR RESPONSE WITH ABERRANT CONDUCTION OR VENTRICULAR PREMATURE COMPLEXES LOW QRS VOLTAGEIN PRECORDIAL LEADS [QRS DEFLECTION < 1.0 mV IN CHEST LEADS] SEPTAL MYOCARDIAL INFARCTION , OF INDETERMINATE AGE [40+ ms Q WAVE IN V1/V2] ABNORMAL ECG Compared to prior EKG heart rate increased Electronically Signed By: Stanford Norton XR Chest 1 View Result Date: 07/29/2022 Narrative: EXAM DESCRIPTION: XR CHEST 1 VIEW REASON FOR STUDY: general weakness, c/f pna Pt presents to ED s/p FALL AT RETIREMENT ALERT TO SELF ONLY STAFF STATES SECOND FALL THIS WEEK Patient is a 72-year-old man with a history of dementia, hypertension, hyperlipidemia, heart failure with preserved ejection fraction, and atrial fibrillation status post Watchman 07/17 now off anticoagulation who presents with recurrent falls. Apparently fell last night. Seen at [facility] and diagnosed with question proximal humerus fracture on right. Subsequently fell and was seen there again. Had yet another fall tonight prompting transfer here. Patient denies any current complaints but is unable to provide additional history secondary to dementia. TECHNIQUE: One radiographic view of the chest acquired.COMPARISON: None FINDINGS: LUNGS/PLEURA: No focal consolidation or pneumothorax. No pleural effusion. Elevation right hemidiaphragm with atelectasis at the right lung base. HEART/MEDIASTINUM: Heart size is normal. Normal mediastinal and hilar contours. HARDWARE/LINES/TUBES: None. BONES: Impacted fracture of the proximal right humerus. OTHER: No other significant finding. IMPRESSION: Impacted fracture of the proximal right humerus. THIS IS AN ELECTRONICALLY VERIFIED FINAL REPORT 07/29/2022 10:18 PM - Electronically signed by Bryson Owen M.D. KT: SOHAIL Report ID: [id number] Reading Location: [id number] XR Shoulder Right 2 or More Views Result Date: 07/29/2022 Narrative: EXAM DESCRIPTION: XR SHOULDER RIGHT 2 OR MORE VIEWS REASON FOR STUDY: known fx, ?prox hum, c/f fx Pt presents to ED s/p FALL AT RETIREMENT ALERT TO SELF ONLY STAFF STATES SECOND FALL THIS WEEK Patient is a 72-year-old man with a history of dementia, hypertension, hyperlipidemia, heart failure with preserved ejection fraction, and atrial fibrillation status post Watchman 07/17 now off a nticoagulation who presents with recurrent falls. Apparently fell last night. Seen at [facility] and diagnosed with question proximal humerus fracture on right. Subsequently fell and was seen there again. Had yet another fall tonight prompting transfer here. Patient denies any current complaints but is unable to provide additional history secondary to dementia. TECHNIQUE: Internal and external rotation views of the right shoulder were obtained. COMPARISON: None FINDINGS: BONES/JOINTS: There is an impacted fracture through the surgical neck of the proximal right humerus. Degenerative narrowingof the right glenohumeral joint. There is osteophytic spurring about the right acromioclavicular joint. SOFT TISSUES: Unremarkable. VISUALIZED RIBS AND LUNG: No significant finding. OTHER: No significant finding. IMPRESSION: Impacted fracture through the surgical neck of the proximal right humerus.THIS IS AN ELECTRONICALLY VERIFIED FINAL REPORT 07/29/2022 10:17 PM - Electronically signed by Annika Owen M.D. KT: SOHAIL Report ID: [id number] Location: [id number] CT Head WO Contrast Result Date: 07/29/2022 Narrative: EXAM DESCRIPTION: CT HEAD WO CONTRAST REASON FOR STUDY: Head trauma, minor (Age => 66y) Pt arrived from senior care after a fall today. Unknown if pt hit head. Pt poor historian and confused. Prior fall one week ago. Hx of HTN, TIA TECHNIQUE: Axial images acquired through the brain without intravenous contrast. Images stored on PACS. Automated exposure control was used as a dose optimization technique for this examination. COMPARISON: 10/07/2021 FINDINGS: BRAIN: No hemorrhage, edema or mass effect. No recent infarct. Nonspecific periventricular and subcortical white matter hypoattenuation which can be seen as sequela of chronic small vessel ischemic disease. There is intraoperative appropriate cerebral volume loss with ex vacuo dilatation of the ventricular system, not substantially changed. No acute intraventricular hemorrhage. Basal cisterns are patent. EXTRA-AXIAL SPACES: No fluid collections. No masses. CALVARIUM: No acute calvarial fracture. SINUSES/MASTOIDS: Thereis an acute comminuted and mildly displaced fracture of the lateral wall of the right maxillary sinus possibly extending to the posterior wall right maxillary sinus with locules of gas extending adjacent to right lateral orbital wall. There is a subtle cortical step-off along the lateral right orbital wall likely reflective of an acute minimally displaced fracture. There is mucosal thickening ofthe right maxillary sinus with superimposed small volume hemorrhage. Mild mucosal thickening of theethmoid air cells. Otherwise, no fluid or mucosal thickening. ORBITS: No significant abnormality. There is mild right edna-maxillary facial contusion. IMPRESSION: 1. No acute intracranial findings. 2. Acute comminuted and mildly displaced fracture of the lateral wall right maxillary sinus possibly extending to the posterior wall. Subtle cortical step-off along the lateral right orbital wall likely reflective of an acute minimally displaced fracture. 3. Mild right edna-maxillary facial contusion. THIS IS AN ELECTRONICALLY VERIFIED FINAL REPORT 07/29/2022 9:46 PM - Electronically signed by Destiny Mullen M.D. AT: AT Report ID: [id number] Reading Location: [place] [id number] ECG 12 lead Result Date: 07/17/2022 Narrative: Vent Rate: 67 bpm RR Interval: 885 msec NJ Interval: 0 msec QRS Duration: 89 msec QT Interval: 420 msec QTC Interval: 436 msec P-R-T [place]: 0 - 4 - -9 degrees ATRIAL FIBRILLATION ABNORMAL RHYTHM ECG Electronically Signed By: Clarence Wilkes MD CHOLO Guidance During Cardiac Structural Intvn [id number] Result Date: 07/17/2022 Narrative: [facility] [address] [place] [address] TRANSESOPHAGEAL ECHOCARDIOGRAM Patient Name: JANIA GUAJARDO A : 1950 Study Date: 07/17/2022 8:20:57 AM Gender: M Tech: RORY Location: [id number] Ref.Provider: PEDRO LUIS GOMEZ Height(Cm): 178 BSA: 2.01 Weight(Kg): 83.46 BP: 137/85Order Provider: PEDRO LUIS GOMEZ - Procedures: Transesophageal Echo Report: Transesophageal echocardiogram including 2D imaging, spectral doppler and color doppler was performed in the cardiac catheterization laboratory to support a structural procedure. The procedure was monitored with automatic blood pressure monitoring, ECG tracings, and pulse oximetry. Sedation was achieved by anesthesia using Propofol IV. The transesophageal probe was placed in the esophagus posterior to the heart without any complications. The patient tolerated the procedure well. Indications: Atrial fibrillation. Findings: BP: Blood pressure: 137/85 mmHg. Left Ventricle: Roughly low normal global left ventricular systolic function. Ejection Fraction is estimated at 50-60 %. Normal left ventricular cavity size. Right Ventricle: Normal right ventricular size. Normal right ventricular systolic function. Left Atrium: There is mild enlargement of the left atrium. LA Appendage: No TINY thrombus seen. During the case a left atrial appendage occlusion device was deployedin the left atrial appendage. It appears well-seated. There is no color Doppler flow around the device. Right Atrium: There is mild enlargement of the right atrium. Atrial Septum: Normal atrial septum at the start of the case. During the case atrial septostomy was performed resulting in an iatrogenic ASD at the end of the case. Predominant flow is [id number]. Mitral Valve: Normal appearance ofthe mitral valve. Trace mitral valve regurgitation. There is no evidence for significant mitral stenosis. Aortic Valve: Normal appearance and function of the aortic valve. Trileaflet aortic valve. Tricuspid Valve: Grossly normal appearing tricuspid valve. TR envelope inadequate to estimate RVSP. There is trace tricuspid regurgitation. Pulmonic Valve: Pulmonic valve not well visualized. No pulmonic stenosis. No evidence of pulmonic regurgitation. Pericardium: Small pericardial effusion. Aorta: Mild aortic root dilatation. Pulmonary Artery: Normal pulmonary artery size. Conclusions: 1. Roughly low normal global left ventricular systolic function. Ejection Fraction is estimated at 50-60 %. Normal left ventricular cavity size. 2. Normal right ventricular size. Normal right ventricular systolic function. 3. Normal atrial septum at the start of the case. During the case atrial septostomy was performed resulting in an iatrogenic ASD at the end of the case. Predominant flow is [id number]. 4. Small pericardial effusion. 5. Mild aortic root dilatation. 6. No TINY thrombus seen. During the case a left atrial appendage occlusion device was deployed in the left atrial appendage. It appears well-seated. There is no color Doppler flow around the device. Electronically Signed By: Donavan Valadez MD 2022-07-17 11:54:13 CDT CC: CC: Implantable Cardiac Device Result Date: 07/17/2022 Narrative: Images from the original result were not included. [facility] [address] [place] [address],[id number], [employer] Watchman Left Atrial Appendage Occluder Placement Procedure Report 72 year old male with atrial fibrillation with elevated CHADSVASC score and elevated bleeding risk referred for Watchman device. Attending physicians: Pedro Luis Gomez MD Access:8F RFV ->14F for device placement Catheter:Pigtail Injection:Left atrial appendage Closure:Perclose Anticoagulation:[id number] Heparin Air Kerma:74 mGy Fluoro time:3.2 min Contrast:27 ml Optiray Sedation:general per anesthesia Procedural details: After risks, benefits, and alternatives to the procedure were explained to the patient, they agreed to proceed. After signing informed consent the patient was brought to the cardiac catheterization laboratory/hybrid OR. They were prepped and draped in sterile fashion. General anesthesia was used. Cholo guidance was the provided by Dr. Valadez. A 6F sheath was inserted into the right femoral vein using the modified Seldinger technique, micropuncture access, and ultrasound guidance. We then advanced the [employer] catheter and wire. We then performed transseptal puncture using this system and CHOLO guidance. We confirmed appropriate height for the Watchman system. We advanced the catheter across the intra-atrial septum and advanced the wire into the left superior pulmonary vein. Heparin was administered to achieve an ACT greater than 300. Using the stiff wire as a rail, we then advanced the Watchman sheath into the left atrium. Left atrial pressure was 11mm Hg. We removed the stiff wire and then advanced the pigtail catheter into the left atrial appendage. We maneuvered the sheath into the appendage, and performed angiography as well.Baseline width of the appendage was 21mm. We then advanced a 27mm Watchman FLX device and deployed it using CHOLO and fluoroscopic guidance in the TINY ostium. Post deployment measurements were taken, with 14-21% compression. There was 0mm leak visualized by CHOLO or angiography. We satisfied PASS criteria and the device was released with excellent positioning. The system was removed and the access site was closed with the perclose sutures. Final CHOLO showed well seated device and a small iatrogenic ASD (inherent to the procedure). There was no pericardial effusion noted at end of case. Patient was extubated and transferred to the PACU for further monitoring and care. A/P: Successful Watchman FLXprocedure with 27mm device deployed. Continue optimal medical therapy. Further management per the cardiology and medicine teams. Pedro Luis Gomez MD 07/17/22 10:13 AM ASSESSMENT/PLAN: Facial injury - no obvious facial fractures, reviewed CT imaging, agree with motion artifact and maxillary sinus third molars bilaterally Severe Dental caries - follow up with Dentist as outpatient, continue on very soft diet. I appreciate this consultation and allowing my participation in the care of Jania Jemma Martines DO 07/30/2022 * Stanford Norton MD - 07/30/2022 12:26 PM CDTAssociated Order(s): IP CONSULT TO CARDIOLOGY Images from the original note were not included. H&P Note Patient Name: Jania Guajarod Date of : 1950 Primary Physician: Abiodun Novak MD Admission Date: 07/29/2022 Length of Stay: 1 Reason for consult Recurrent falls Chief Complaint Chief Complaint Patient presents with Weakness - Generalized Pt alert to self HPI Jania Jovanna Guajardo is a 72 y.o. male presented to the hospital recurrent falls. Patient does not remembermuch detail about event. He mentioned that he has been having difficulty with walking and balance he needed quite significant support for getting out of the bed. He had a fall last night with right arm fracture. Patient denied any loss of consciousness. History is limited by dementia and most information were obtained from chart review. He has history of atrial fibrillation of oral anticoagulation status post left atrial appendage occlusion. He was found to have AFib with RVR in the ED. He received diltiazem and his heart rate has been controlled since then. Past Medical History Past Medical History: Diagnosis Date Acute cholecystitis Alcohol use Anxiety Atrial fibrillation ([facility]) ([facility]) Blind legally blind BPH (benign prostatic hyperplasia) BPH (benign prostatic hyperplasia) CHF (congestive heart failure) (CMS/HCC) ([facility]) CHF (congestive heart failure) (CMS/[facility]) ([facility]) Cholecystitis Chronic anemia COPD (chronic obstructive pulmonary disease) (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 HTN (hypertension) Hyperlipidemia Hypertension TIA (transient ischemic attack) Vitamin D deficiency Past Surgical History Past Surgical History: Procedure Laterality Date ABSCESS CATHETER INJECTION N/A 12/25/2019 ABSCESS CATHETER INJECTION N/A 01/04/2020 ABSCESS CATHETER INJECTION N/A 01/15/2020 CATARACT EXTRACTION, BILATERAL CHOLECYSTECTOMY CIRCUMCISION FLUID DRAIN SOFT TISSUE N/A 12/19/2019 IR CHOLANGIOGRAM THROUGH EXISTING CATHETER N/A 02/04/2020 VASECTOMY Medications Medications Prior to Admission Medication Sig Dispense Refill Last Dose acetaminophen (TYLENOL) 325 mg tablet Take 2 tablets (650 mg total) by mouth every 4 (four) hours as needed for pain 30 tablet 0 Past Week albuterol 2.5 mg /3 mL (0.083 %) nebulizer solution Take 3 mL (2.5 mg total) by nebulization every 6 (six) hours as needed for wheezing Past Week amLODIPine (NORVASC) 5 mg tablet Take 1 tablet (5 mg total) by mouth daily 30 tablet 11 Past Week aspirin 81 mg enteric coated tablet Take 1 tablet (81 mg total) by mouth daily Past Week atorvastatin (LIPITOR) 10 mg tablet Take 1 tablet (10 mg total) by mouth nightly Past Week cholecalciferol (VITAMIN D-3) 5,000 unit tablet Take 1 tablet (5,000 Units total) by mouth every other day Past Week divalproex DR (DEPAKOTE) 250 mg EC tablet Take 125 mg by mouth 3 (three) times a day as needed (Increasing agitation) Past Week fluticasone propion-salmeteroL (ADVAIR DISKUS) 100-50 mcg/dose diskus inhaler Inhale 1 puff daily Rinse mouth with water after use. Do not swallow. Past Week folic acid (FOLVITE) 1 mg tablet Take 1 tablet (1 mg total) by mouth daily Past Week losartan (COZAAR) 50 mg tablet Take 1 tablet (50 mg total) by mouth daily (Patient taking differently: Take 1 tablet (50 mg total) by mouth 2 (two) times a day) 30 tablet 11 Past Week metoprolol (LOPRESSOR) 100 mg tablet Take 1 tablet (100 mg total) by mouth 2 (two) times a day 180 tablet 3 Past Week pantoprazole DR (PROTONIX) 40 mg EC tablet Take 1 tablet (40 mg total) by mouth daily Past Week ramelteon (ROZEREM) 8 mg tablet Take 1 tablet (8 mg total) by mouth nightly 30 tablet 11 Past Week senna (SENOKOT) 8.6 mg tablet Take 1 tablet by mouth 2 (two) times a day Past Week terazosin (HYTRIN) 10 mg capsule Take 1 capsule (10 mg total) by mouth daily Past Week fluticasone furoate-vilanteroL (BREO ELLIPTA) 100-25 mcg/dose diskus inhaler Inhale 1 puff once daily Rinse mouth with water after use. Do not swallow. multivit,tx with iron,minerals (THERA-M ORAL) Take 1 tablet by mouth every morning (Patient not taking: Reported on 04/17/2022) QUEtiapine (SEROquel) 25 mg tablet Take 1 tablet (25 mg total) by mouth every 6 (six) hours as needed (agitation) (Patient not taking: Reported on 04/17/2022) Allergies Allergies Allergen Reactions Penicillins Hives and Rash Family History Family History Problem Relation Age of Onset Hypertension Mother Lung cancer Father Cancer Father Anesthesia problems Neg Hx Social History Social History Tobacco Use Smoking status: Every Day Packs/day: 1.00 Types: Cigarettes Start date: 1964 Smokeless tobacco: Never Substance and Sexual Activity Drug use: Yes Types: Alcohol Comment: Reportedly 3 shots of Tequila/day Sexual activity: Defer Alcohol Use: Not At Risk (07/30/2022) AUDIT-C Frequency of Alcohol Consumption: Never Average Number of Drinks: Patient does not drink Frequency of Binge Drinking: Never Review of Systems Systems review are negative except as noted above Objective BP 133/77 (BP Location: Left arm, Patient Position: Lying) Pulse 87 Temp 36.2 ??C (97.1 ??F) (Temporal) Resp 20 Ht 167.6 cm (5' 6 ) Wt 81.8 kg (180 lb 5.4 oz) SpO2 97% BMI 29.11 kg/m?? General appearance: no distress, no cyanosis, able to lie flat Eyes: anicteric sclera, no conjunctival hemorrhage; PERRLA HENT: Atraumatic; oropharynx clear with moist mucous membranes and no mucosal ulcerations Neck: Trachea midline; supple, no thyromegaly or lymphadenopathy, no JVD, no carotid bruit Lungs: CTA, with normal respiratory effort and no intercostal retractions CV: RRR, apical impulse is barely palpable or normal, no thrill, no MRG, Abdomen: Soft, non-tender; no masses or HSM Extremities: No peripheral edema, intact pulses, no clubbing Skin: Normal temperature, turgor and texture; no rash, patachaie or ulcers or Sc nodules Psych: Slow response Neuro: no focal weakness and grossly intact cranial nerve Diagnostics Recent Results (from the past 24 hour(s)) CBC with auto differential Collection Time: 07/29/22 8:28 PM Result Value Ref Range WBC 8.3 3.8 - 9.9 K/cumm Hgb 10.8 (L) 13.0 - 17.5 g/dL Hct 31.9 (L) 38.9 - 50.3 % Plt 163 150 - 400 K/cumm MPV 11.4 9.1 - 12.3 fL RBC 3.31 (L) 4.30 - 5.80 M/cumm MCV 96.4 81.3 - 96.4 fL MCH 32.6 27.1 - 33.3 pg MCHC 33.9 32.3 - 35.7 g/dL RDW CV 13.3 11.1 - 14.9 % RDW SD 47.8 35.7 - 48.1 fL NRBC abs 0.00 0.00 - 0.01 K/cumm Comprehensive metabolic panel Collection Time: 07/29/22 8:28 PM Result Value Ref Range Sodium 140 135 - 145 mmol/L Potassium, pl 3.7 3.3 - 4.9 mmol/L Chloride 104 97 - 110 mmol/L CO2 26 22 - 32 mmol/L Anion gap 10 2 - 15 mmol/L BUN 15 8 - 25 mg/dL Creatinine 0.69 (L) 0.80 - 1.30 mg/dL Glucose 150 70 - 199 mg/dL Calcium 8.7 8.5 - 10.3 mg/dL Bilirubin, total 0.6 0.1 - 1.2 mg/dL Protein, pl 5.8 (L) 6.5 - 8.5 g/dL Albumin 3.4 (L) 3.5 - 5.0 g/dL Alk phos 110 40 - 130 Units/L ALT 55 7 - 55 Units/L AST 39 10 - 50 Units/L Magnesium Collection Time: 07/29/22 8:28 PM Result Value Ref Range Magnesium 1.8 1.4 - 2.5 mg/dL Urinalysis reflex to microscopic and culture Urine Collection Time: 07/29/22 8:28 PM Specimen: Urine Result Value Ref Range Color, ur Yellow Yellow Clarity, ur Clear Clear Specific gravity, ur 1.019 1.003 - 1.030 pH, urine 6.5 Protein, ur ql Negative Negative Glucose, ur ql Negative Negative Ketones, ur Negative Negative Bilirubin, ur Negative Negative Blood, ur Negative Negative Urobilinogen, ur <2.0 <2.0 mg/dL Nitrite, ur Negative Negative Leukocyte esterase, ur Negative Negative UA reflex comment Reflex conditions for microscopic UA and culture not met. Creatine kinase (CK), total Collection Time: 07/29/22 8:28 PM Result Value Ref Range CK 47 40 - 300 Units/L Differential, auto Collection Time: 07/29/22 8:28 PM Result Value Ref Range Neutrophil abs 6.4 1.7 - 6.5 K/cumm Imm gran abs 0.0 0.0 - 0.1 K/cumm Lymphocyte abs 1.1 0.8 - 3.3 K/cumm Monocyte abs 0.6 0.2 - 0.8 K/cumm Eosinophil abs 0.1 0.0 - 0.5 K/cumm Basophil abs 0.0 0.0 - 0.1 K/cumm Neutrophil pct 77.9 % Imm gran pct 0.4 % Lymphocyte pct 13.2 % Monocyte pct 7.6 % Eosinophil pct 0.7 % Basophil pct 0.2 % eGFR Collection Time: 07/29/22 8:28 PM Result Value Ref Range eGFR 99 mL/min/1.73 m2 No results found. Results for orders placed or performed during the hospital encounter of 06/11/21 ECG 12 lead Result Value Ref Range Ventricular Rate EKG/Min 78 BPM Atrial Rate 110 BPM QRS-Interval (MSEC) 76 ms QT-Interval (MSEC) 424 ms QTc 483 ms R [place] 14 degrees T [place] -38 degrees Diagnosis Atrial fibrillation Nonspecific ST and T wave abnormality Prolonged QT Abnormal ECG When compared with ECG of 12-JUN-2021 12:13, Vent. rate has decreased BY 70 BPM Nonspecific T wave abnormality, worse in Anterolateral leads Confirmed by VENKAT KANG M.D ([id number]) on 06/14/2021 2:54:24 PM EK07/29/2022 CHOLO: 07/17/2022 Conclusions: 1. Roughly low normal global left ventricular systolic function. Ejection Fraction is estimated at 50-60 %. Normal left ventricular cavity size. 2. Normal right ventricular size. Normal right ventricular systolic function. 3. Normal atrial septum at the start of the case. During the case atrial septostomy was performed resulting in an iatrogenic ASD at the end of the case. Predominant flow is [id number]. 4. Small pericardial effusion. 5. Mild aortic root dilatation. 6. No TINY thrombus seen. During the case a left atrial appendage occlusion device was deployed in the left atrial appendage. It appears well-seated. There is no color Doppler flow around the device. Watchman Left Atrial Appendage Occluder Placement Procedure Report: 07/17/2022 A/P: Successful Watchman FLX procedure with 27mm device deployed. Continue optimal medical therapy.Further management per the cardiology and medicine teams. 48 Hour Holter: 08/30/2020 Conclusions: 1. Predominant rhythm is atrial fibrillation. 2. Suboptimal ventricular rate control. 3. No prolonged pauses. NM MPI Spect (Rest and/or Stress) Multiple Studies: 08/30/2020 Conclusions: 1. Left ventricular ejection fraction is 38 %. There is moderate LV dysfunction. 2. Myocardial perfusion imaging is normal. Heart rate increase is not required for adequate pharmacologic vasodilator stress. Assessment/Plan 72 y.o. male seen for Chronic atrial fibrillation with RVR on presentation currently controlled Falls likely related to lack of balance and generalized weakness PLAN: Aspirin 81 mg daily Amlodipine 5 mg daily Metoprolol 100 mg b.i.d. If heart rate is not controlled with metoprolol change amlodipine to diltiazem 120 mg Care plan discussed with the patient. Stanford Norton MD 07/30/2022 12:26 PM documented in this encounter Nursing Notes * Gage López RN - 08/03/2022 10:54 AM CDT Pt Dc to [facility], report previously called pt taken to [facility] in for [facility] transport vehicle. documented in this encounter ED Notes * Jose Alfredo Avitia RN - 07/30/2022 12:47 AM CDT Pt does not want monitor on at this time comfort and safety measures provided Jose Alfredo Avitia RN 07/30/22 0048 * Byron Torres MD - 07/29/2022 8:23 PM CDT HPI Chief Complaint Patient presents with Weakness - Generalized Pt alert to self Patient is a 72-year-old man with a history of dementia, hypertension, hyperlipidemia, heart failure with preserved ejection fraction, and atrial fibrillation status post Watchman 07/17 now off anticoagulation who presents with recurrent falls. Apparently fell last night. Seen at [facility] and diagnosed with question proximal humerus fracture on right. Subsequently fell and was seen there again. Had yet another fall tonight prompting transfer here. Patient denies any current complaints but is unable to provide additional history secondary to dementia. Patient History: Patient Active Problem List Diagnosis Date Noted A-fib ([facility]) ([facility]) 07/17/2022 Frequent falls 07/29/2022 Septic shock ([facility]) ([facility]) Sepsis due to COVID-19 ([facility]) ([facility]) 10/04/2021 Falls, subsequent encounter 09/25/2021 Borderline hyperglycemia 08/23/2021 Dementia ([facility]) 07/21/2021 COPD (chronic obstructive pulmonary disease) ([facility]) 07/13/2021 Benign prostatic hyperplasia with lower urinary tract symptoms 07/13/2021 Acute on chronic anemia 07/05/2021 Thrombocytopenia ([facility]) 07/05/2021 TBI (traumatic brain injury) ([facility]) 06/29/2021 SAH (subarachnoid hemorrhage) ([facility]) ([facility]) 06/29/2021 Encephalopathy 06/29/2021 Acute delirium 06/29/2021 Scrotal abscess 06/29/2021 Closed nondisplaced intertrochanteric fracture of left femur ([facility]) ([facility]) 06/29/2021 Dysphagia 06/29/2021 Orthostatic hypotension 06/29/2021 Acute respiratory failure ([facility]) 06/29/2021 Atrial fibrillation ([facility]) ([facility]) 06/15/2020 Chronic systolic heart failure ([facility]) ([facility]) 06/15/2020 Cholecystitis 06/14/2020 DVT (deep venous thrombosis) ([facility]) ([facility]) 02/20/2020 Intra-abdominal abscess ([facility]) ([facility]) 12/28/2019 Hypercholesterolemia 04/26/2010 Hypertension 04/26/2010 Heartburn 04/26/2010 Past Medical History: Diagnosis Date Acute cholecystitis Alcohol use Anxiety Atrial fibrillation ([facility]) ([facility]) Blind legally blind BPH (benign prostatic hyperplasia) BPH (benign prostatic hyperplasia) CHF (congestive heart failure) ([facility]) ([facility]) CHF (congestive heart failure) ([facility]) ([facility]) Cholecystitis Chronic anemia COPD (chronic obstructive pulmonary disease) ([facility]) (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 HTN (hypertension) Hyperlipidemia Hypertension TIA (transient ischemic attack) Vitamin D deficiency Past Surgical History: Procedure Laterality Date ABSCESS CATHETER INJECTION N/A 12/25/2019 ABSCESS CATHETER INJECTION N/A 01/04/2020 ABSCESS CATHETER INJECTION N/A 01/15/2020 CATARACT EXTRACTION, BILATERAL CHOLECYSTECTOMY CIRCUMCISION FLUID DRAIN SOFT TISSUE N/A 12/19/2019 IR CHOLANGIOGRAM THROUGH EXISTING CATHETER N/A 02/04/2020 VASECTOMY Family History Problem Relation Age of Onset Hypertension Mother Lung cancer Father Cancer Father Anesthesia problems Neg Hx Social History Tobacco Use Smoking status: Every Day Packs/day: 1.00 Types: Cigarettes Start date: 1964 Smokeless tobacco: Never Vaping Use Vaping status: Never Used Substance and Sexual Activity Alcohol use: Yes Comment: limited Drug use: Yes Types: Alcohol Comment: Reportedly 3 shots of Tequila/day Sexual activity: Defer Social History Social History Narrative Cigarette smoker : (Added by TW Conv) Review of Systems Review of Systems Unable to perform ROS: Dementia Physical Exam ED Triage Vitals [07/29/222023] Temp Pulse Resp BP SpO2 (!) 35.7 ??C (96.3 ??F) 115 18 150/96 97 % Temp src Heart Rate Source Patient Position BP Location FiO2 (%) Tympanic -- -- -- -- Height Height Method Weight Weight Method 1.778 m (5' 10 ) Stated 83.6 kg (184 lb 4.9 oz) -- Physical Exam Vitals and nursing note reviewed. Constitutional: General: He is not in acute distress. Appearance: He is not ill-appearing or diaphoretic. HENT: Head: Normocephalic and atraumatic. Mouth/Throat: Mouth: Mucous membranes are moist. Eyes: General: No scleral icterus. Extraocular Movements: Extraocular movements intact. Neck: Comments: No midline tenderness Full range of motion Cardiovascular: Rate and Rhythm: Normal rate and regular rhythm. Pulmonary: Effort: Pulmonary effort is normal. No respiratory distress. Chest: Chest wall: No tenderness. Abdominal: General: There is no distension. Palpations: Abdomen is soft. Tenderness: There is no abdominal tenderness. Musculoskeletal: General: No swelling. Normal range of motion. Cervical back: Normal range of motion. Comments: Right shoulder swelling and tenderness No elbow or wrist tenderness Easily palpable radial pulse 5/5 strength AIN/PIN/ulnar distribution SILT M/R/U distribution Skin: General: Skin is warm and dry. Findings: No rash. Neurological: General: No focal deficit present. Mental Status: He is alert. Mental status is at baseline. Comments: Oriented to self and place Questionable right leg weakness but had significant difficulty following commands Psychiatric: Mood and Affect: Mood normal. Behavior: Behavior normal. MDM NIH Score Medical Decision Making 72-year-old man with multiple comorbidities who presents with recurrent falls. Unclear etiology. Does have recurrent falls which is why his off anticoagulation and had a Watchman procedure. Is in low-grade RVR. Possible electrolyte abnormality. Doubt infectious trigger including UTI or pneumonia. Doubt stroke. Doubt ACS. Doubt other emergent condition. Plan: ECG, labs, x-rays, CT, rate control Amount and/or Complexity of Data Reviewed Independent Historian: EMS Labs: ordered. Decision-making details documented in ED Course. Radiology: ordered. Decision-making details documented in ED Course. ECG/medicine tests: ordered and independent interpretation performed. Risk OTC drugs. Prescription drug management. Decision regarding hospitalization. Diagnosis or treatment significantly limited by social determinants of health. ED Course as of 07/29/222 Time: 07/29 2045 Value: Hgb(!): 10.8 Comment: Minimal baseline anemia By: Byron Torres MD Time: 07/29 2048 Value: Leukocyte esterase, ur: Negative Comment: Not consistent with infection By: Byron Torres MD Time: 07/29 2099 Value: XR Shoulder Right 2 or More Views Comment: Minimally displaced proximal humerus fracture on my reading By: Byron Torres MD Time: 07/29 2137 Value: CK: 47 Comment: Negative By: Byron Torres MD Time: 07/29 2145 Comment: Heart rate persistently in upper 1 teens/120s. Will give small dose of diltiazem. By: Byron Torres MD Time: 07/29 2148 Value: CT Head WO Contrast Comment: Minimally displaced facial fractures By: Byron Torres MD Time: 07/29 2216 Comment: CMP unremarkable By: Byron Torres MD Time: 07/29 2216 Value: Magnesium: 1.8 Comment: Normal By: Byron Torres MD Time: 07/29 2236 Comment: Updated ex- [facility] about condition and plan. Reviewed records from [place] which revealed known humerus and facial fractures. By: Byron Torres MD Final diagnoses: Frequent falls Other closed nondisplaced fracture of proximal end of right humerus, initial encounter Closed fracture of facial bone, unspecified facial bone, initial encounter ([facility]) Atrial fibrillation with RVR ([facility]) ([facility]) Byron Torres MD 07/29/222241 * Jose Alfredo Avitia RN - 07/29/2022 8:23 PM CDT Pt presents to ED s/p FALL AT RETIREMENT ALERT TO SELF ONLY STAFF STATES SECOND FALL THIS WEEK * Estela Jorge RN - 07/29/2022 8:22 PM CDT Bed: ED14 Expected date: Expected time: Means of arrival: Comments: EMS Estela Jorge RN 07/29/222021 documented in this encounter Miscellaneous Notes * Plan of Care - Gage López RN - 08/03/2022 8:13 AM CDT Problem: Lack of Knowledge: Goal: Ability to state ways to decrease the risk of falls will improve Outcome: Adequate for Discharge Problem: Health Behavior: Goal: Understanding of discharge needs will improve Outcome: Adequate for Discharge Problem: Safety: Goal: Will remain free from falls Outcome: Adequate for Discharge Problem: Activity: Goal: Mobility will improve Outcome: Adequate for Discharge Problem: Nutritional: Goal: Dietary intake will improve Outcome: Adequate for Discharge * Plan of Care - Elin Finney RN - 08/03/2022 4:53 AM CDT Goals: Clinical Goals for the Shift: Pt to remain safe with vss Summary: Pt has been safe this shift. No complaints voiced. Pt A&O to self. VSS * Plan of Care - Echo Bone COTA - 08/02/2022 3:43 PM CDT Problem: OT Misc Goal: OT STG - Misc 1 Description: Patient will tolerate left upper extremity strengthening x 10 repetitions each with good utilization of energy conservation techniques for improved functional capacity and upper extremity strength to improve independence with ADL completion. Outcome: Progressing * Plan of Care - Candis Ferreira LCSW - 08/02/2022 11:48 AM CDT Sent updates to Levar at [facility] via [employer]. Sent message to [facility] to update him on referral to [facility] as he is over this facility. [facility] is doing financial and legal background checks and will submit for insurance auth if everything checks out ok. Received message from [facility] that the facility submitted for insurance approval and found out they are not in network. SW sent message to Dianne to see in [facility], [facility] in [place], or [facility] would have a bed open and start auth. Dianne stated [facility] has no open beds soon but she will see which, [facility] or [facility], is more likely to have open bed and submit for auth for one of them. * Plan of Care - Elin Finney RN - 08/02/2022 4:20 AM CDT Goals: Clinical Goals for the Shift: Pt to remain safe with vss Summary: Pt has been safe this shift. A&Ox1. Bed alarm on for safety. No complaints voiced. VSS. AFib on monitor. * [facility] Note - Candis Ferreira LCSW - 08/01/2022 3:14 PM CDT Images from the original note were not included. Patient Information: OT Eval and Treat Last 72 Hours OT Evaluation Row Name 07/30/22 7444 Chart Reviewed Yes -MS Session Type Evaluation -MS OT Received On 07/30/22 -MS Safe Environment Arm band checked;Patient found in supine -MS Subjective Agreeable to Therapy -MS Family/Caregiver Present No -MS Occupational Therapy-Patient Goal none stated. -MS Precautions Fall risk -MS Weight Bearing Restrictions Yes -MS RLE Weight Bearing NWB -MS Braces/Orthoses Sling -MS Precaution Comments Rt proximal humerus fx -MS Type of Home Assisted Living Facility -MS Home Layout One level -MS Home Access Level entry -MS Bathroom Shower/Tub Walk-in shower with threshold -MS Bathroom Toilet Standard -MS Bathroom Equipment Grab bars in shower/tub;Built-in shower seat;Hand-held shower -MS Level of [place] Needs assistance with ADLs;Independent functional transfers;Independent with ambulation;Dependent with homemaking -MS Lives With Alone -MS Receives Help From Other (Comment) staff at facility -MS Driving No pt states he has a car and still drives but was unable to state the last time he has driven -MS Fall within the last 6 months Yes -MS Fall within the last 6 months comment 3 falls in day prior to admission -MS ADLS (WDL) X -MS LE Dressing: Where assessed Sitting;Edge of bed -MS LE Dressing: Level of assistance Dependent -MS LE Dressing: Assistance with Don/doff R sock;Don/doff L sock -MS Pain Assessment No/denies pain -MS Activity Tolerance Comments rest breaks with activity -MS Overall Cognitive Status Impaired -MS Arousal/Alertness Alert -MS Memory Decreased recall of precautions;Decreased recall of recent events;Decreased short term memory -MS Current communication Appears Intact -MS Orientation Oriented to person pt unable to recal current month or year, uncertain of place -MS Following Commands Follows one step commands with increased time -MS Safety Judgment Decreased awareness of need for safety -MS Insight Decreased awareness of deficits -MS Compliance/Behavior Easy to engage -MS Numbness/Tingling No -MS Static Sitting-Balance Support Left upper extremity supported;Feet supported -MS Static Sitting-Sitting Surface Bed -MS Static Sitting-Level of Assistance Close supervision -MS Static Standing-Balance Support Left upper extremity supported -MS Static Standing-Standing Surface Floor -MS Static Standing-Level of Assistance Minimum assistance min assist of 2 -MS Bed Mobility From 1 Supine -MS Bed Mobility Type 1 To and from -MS Bed Mobility to 1 Edge of bed -MS Level of Assistance 1 -- min assist of 2 -MS Transfer From 1 Bed -MS Transfer Type 1 To and from -MS Transfer to 1 Stand -MS Technique 1 Sit to stand;Stand to sit -MS Transfer Device 1 Hand held assist -MS Transfer Level of Assistance 1 -- min assist o f 2, limited standing tolerance, fatigues quickly, sits without warning -MS RUE Assessment -- not tested due to orthopedic precautions -MS LUE Assessment WFL -MS Putting on and taking off regular lower body clothing 1 -MS Bathing 2 -MS Toileting 1 -MS Putting on and taking off upper body clothing 2 -MS Personal Grooming 2 -MS Eating Meals 2 -MS Total Score (range 6-24) 10 -MS Score Interpretation 27.31 -MS Safe Environment End of Therapy Session Patient left supine in bed;Bed alarm in place and activated;RN notified;Call light within reach;Overbed table within reach -MS Prognosis Excellent -MS Problem List Decreased cognition;Decreased upper extremity strength;Decreased safe judgment during ADL;Decreased balance;Decreased functional mobility;Decreased ADL independence -MS Plan Plan of care initiated;If this is the last note, consider this the discharge summary -MS OT Recommendation Longterm Facility -MS Patient at high risk for Falls;Readmission;Injury due to reduced functional status;Injury due to decreased ability to care for self;Injury due to impaired cognition;Injury due to balance deficits;Injury at home as patient has not returned to prior level of function;Developing impaired skin integrity -MS Recommend SNF due to Risk of injury at home;Skilled therapy needed to address care for self in the home;Unable to safely care for self in the home;Skilled therapy needed to address functional deficits;Skilled therapy needed for patient to return to prior level of independence -MS OT Frequency during current admission 2-3x/wk Mon-Fri, Sat PRN -MS Treatment/Interventions during current admission Balance Training;ADL/IADL retraining;Bed mobility;Functional activity;Functional mobility training;Strengthening;Therapeutic exercise -MS OT Evaluation Complete Yes -MS User Perdomo (r) = Recorded By, (t) = Taken By, (c) = Cosigned By Initials Name Effective Dates MS BallDamir petesron, OT 12/07/20 - OT Treatment No documentation. OT Notes 07/30/2022 2:09 PM Progress Notes signed by Damir Hargrove, OT , PT Eval and Treat Last 72 Hours PT Evaluation Row Name 07/30/22 1333 Chart Reviewed Yes -LM Session Type Evaluation -LM Safe Environment Patient found in supine;Arm band checked -LM Subjective Agreeable to Therapy -LM Additional Pertinent History hx of 4 brain bleeds, was living at assisted living per nursing. Ox1 normal for pt -LM Family/Caregiver Present No -LM Physical Therapy-Patient Goal unstated -LM Precautions Bed/Chair Alarm;Fall risk -LM Precaution Comments R arm prox humeral fx impacted, facial fx. NWB in sling w R arm. sinus precautions: HOB at 30 degrees at all times, no straining, no lifting more than 10 lbs, no nose blowing, open mouth sneezing -LM Type of Home Assisted Living Facility recieved info from nursing -LM Home Layout One level -LM Home Access Level entry -LM Home Mobility Equipment -- unknown -LM Level of [place] Needs assistance with ADLs;Independent with ambulation;Independent functionaltransfers -LM Lives With Alone may live in same location but unknown -LM Fall within the last 6 months Yes -LM Fall within the last 6 months comment 3x in the last several days -LM Pain Assessment FLACC -LM Pain Rating: FLACC (Rest) - Face 1 -LM Pain Rating: FLACC (Rest) - Legs 0 -LM Pain Rating: FLACC (Rest) - Activity 0 -LM Pain Rating: FLACC (Rest) - Cry 0 -LM Pain Rating: FLACC (Rest) - Consolability 0 -LM Score: FLACC (Rest) 1 -LM Pain Rating: FLACC (Activity) - Face 0 -LM Pain Rating: FLACC (Activity) - Legs 0 -LM Pain Rating: FLACC (Activity) 0 -LM Pain Rating: FLACC (Activity) - Cry 0 -LM Pain Rating: FLACC (Activity) - Consolability 0 -LM Score: FLACC (Activity) 0 -LM Overall Cognitive Status Impaired -LM Arousal/Alertness Alert -LM Attention Span Appears intact -LM Memory Decreased short term memory;Decreased usp memory -LM Current communication Appears Intact -LM Orientation Oriented to person -LM Safety Judgment Decreased awareness of need for safety -LM Balance Yes -LM Static Sitting-Balance Support Bilateral upper extremity supported -LM Static Sitting-Sitting Surface Bed -LM Static Sitting-Level of Assistance Close supervision -LM Static Standing-Balance Support Bilateral upper extremity supported -LM Static Standing-Standing Surface Floor -LM Static Standing-Level of Assistance Minimum assistance x2 -LM Bed Mobility Yes -LM Bed Mobility From 1 Supine -LM Bed Mobility Type 1 To and from -LM Bed Mobility to 1 Edge of bed -LM Level of Assistance 1 Minimum Assist x2 -LM Transfer Yes -LM Transfer From 1 Bed;Sit -LM Transfer Type 1 To and from -LM Transfer to 1 Stand;Floor -LM Technique 1 Stand to sit;Sit to stand -LM Transfer Device 1 Hand held assist -LM Transfer Level of Assistance 1 Minimum Assist x2 -LM Distance (ft) 1 3 steps -LM Surface 1 Level tile -LM Device 1 Hand held assist -LM Assistance 1 Minimum Assist x2 -LM Gait: Requires assist with 1 Maintaining balance -LM Gait: Requires verbal cues to 1 Increase step length;Increase base of support;Pace activity -LM Quality of Gait 1 dec stability in standing, wants to sit too early, dec endurance, unsteady -LM RLE Assessment WFL -LM LLE Assessment WFL -LM Other PT Comments does not remember that he fell and broke his arm. -LM How much difficulty does the patient have: Turning over in bed 3 -LM How much difficulty does the patient currently have: Sitting down and standing up from a chair witharms? 3 -LM How much difficulty does the patient have: Moving from lying on back to sitting on the side of the bed? 3 -LM How much difficulty does the patient have: Moving to and from a bed to a chair including wheelchair? 3 -LM How much help does the patient currently need: Walk in hospital room? 1 -LM How much help from another person does the patient currently need: Climbing 3-5 steps with a railing? 1 -LM Total 6 Click Score (range 6-24) 14 -LM Score Interpretation 35.55 -LM Safe Environment End of Therapy Session Patient left supine in bed;RN notified;Bed alarm in place and activated;Call light within reach;Overbed table within reach -LM Prognosis Good -LM Problem List Gait deviations;Decreased strength;Decreased range of motion;Decreased endurance;Impaired balance;Decreased mobility;Decreased cognition;Impaired judgement;Decreased safety awareness - Barriers to Discharge Current Mobility Status - Plan Plan of care initiated;If this is the last note, consider this the discharge summary - PT Recommendation/Plan Longterm Facility cannot stand or get out of bed alone. pt will require 24 hr supervision due to cognition, fell 2x -3x at current home when alone per chart review - Patient at high risk for Falls;Readmission - Recommend SNF due to Risk of injury at home;Unable to safely care for self in the home;Skilled therapy needed to address care for self in the home;Skilled therapy needed to address functional deficits;Skilled therapy needed for patient to return to prior level of independence - PT Frequency during current admission Daily - Treatment/Interventions during current admission Balance Training;Bed mobility;Endurance training;Functional activity;Gait training;Functional transfer training;Range of motion;Therapeutic activity;Strengthening;Therapeutic exercise;Transfer training - PT Equipment Recommended None -LM PT Evaluation Complete Yes - User Perdomo (r) = Recorded By, (t) = Taken By, (c) = Cosigned By Initials Name Effective Dates LM Vanessa Evans, PT 12/07/20 - PT TREATMENT (last 168 hours) PT Treatment Row Name 08/01/22 0839 07/31/22 0850 PT Last Visit Session Type Treatment -BE Treatment -BE Safe Environment Arm band checked;Patient found in supine;Session completed bedside;Gait belt utilized for all out of bed mobility -BE Arm band checked;Patient found in supine;Session completed bedside;Gait belt utilized for all out of bed mobility -BE Pain Assessment Pain Assessment 0-10 -BE No/denies pain -BE Pain Score 10 - Worst possible pain -BE -- Pain Location Arm -BE -- Pain Orientation Right -BE -- Bed Mobility 1 Bed Mobility From 1 Supine -BE Supine -BE Bed Mobility Type 1 To -BE To -BE Bed Mobility to 1 Edge of bed -BE Edge of bed -BE Level of Assistance 1 Maximum Assist -BE Minimum Assist -BE Bed Mobility Comments 1 -- rt ue nwb in sling -BE Transfer 1 Transfer From 1 Bed;Sit -BE Bed;Sit -BE Transfer Type 1 To and from -BE To and from -BE Transfer to 1 Stand -BE Stand -BE Technique 1 Sit to stand;Stand to sit -BE Sit to stand;Stand to sit -BE Transfer Device 1 No device;Hand held assist -BE Wheeled walker -BE Transfer Level of Assistance 1 Moderate Assist -BE Minimum Assist;Moderate Assist -BE Ambulation 1 Distance (ft) 1 2-3 steps to chair -BE 3-4 steps to chair -BE Device 1 Hand held assist;No device held onto chair -BE Wheeled walker -BE Assistance 1 Maximum Assist;Moderate Assist -BE Moderate Assist;Minimum Assist -BE Gait: Requires assist with 1 Maintaining balance -BE Maintaining balance -BE Gait: Requires verbal cues to 1 Increase step length;Increase base of support - BE Increase step length;Increase base of support -BE Safe Environment End of Therapy Session Safe Environment End of Therapy Session Patient left in chair;Call light within reach;Overbed tablewithin reach;Chair alarm in place and activated -BE Patient left in chair;Call light within reach;Overbed table within reach -BE Assessment Prognosis Fair -BE Good -BE Problem List Decreased strength;Decreased range of motion;Decreased endurance;Impaired balance;Decreased mobility -BE Decreased strength;Decreased range of motion;Decreased endurance;Impaired balance;Decreased mobility -BE Plan Plan If this is the last note, consider this the discharge summary -BE If this is the last note, consider this the discharge summary -BE Recommendation/Plan PT Recommendation/Plan Longterm Facility -BE Longterm Facility -BE Patient at high risk for Falls;Readmission;Injury due to decreased ability to care for self;Injury due to reduced functional status;Injury due to balance deficits -BE Falls;Readmission;Injury due to decreased ability to care for self;Injury due to reduced functional status;Injury due to balance deficits -BE Recommend SNF due to Unable to safely care for self in the home;Risk of injury at home;Skilled therapy needed to address care for self in the home;Skilled therapy needed to address functional deficits;Skilled therapy needed for patient to return to prior level of independence -BE Risk of injury at home;Unable to safely care for self in the home;Skilled therapy needed to address care for self in the home;Skilled therapy needed to address functional deficits;Skilled therapy needed for patient to return to prior level of independence -BE User Perdomo (r) = Recorded By, (t) = Taken By, (c) = Cosigned By Initials Name Effective Dates BE Serina Silverman, AUDIT LEAD 11/18/18 - PT Notes 07/30/2022 2:31 PM Progress Notes signed by Vanessa Evans, PT , OPERATIONS AGENT Eval and Treat Last 72 Hours OPERATIONS AGENT Evaluation No documentation. OPERATIONS AGENT Treatment No documentation. Clinical Swallow Study No documentation. OPERATIONS AGENT Notes Notes from 07/30/22 through 08/01/22 No notes of this type exist for this encounter. * Plan of Care - Candis Ferreira LCSW - 08/01/2022 3:11 PM CDT Spoke with Levar at [facility]. She requested updated notes which were sent via [employer]. * Plan of Care - Elin Finney RN - 08/01/2022 4:21 AM CDT Goals: Clinical Goals for the Shift: Pt to remain safe with vss Summary: Pt has been safe. Pt confused, A&O to self, answered I dont know to everything asked. Bed alarm on for safety. VSS. * Plan of Care - Qian Hsieh RN - 07/31/2022 4:06 PM CDT Goals: Clinical Goals for the Shift: vss, remain fee from injury/unsafe behaviors, no neuro deficits Summary: vss. Sitter d/c at start of shift and no unsafe behaviors noted or reported. Stat CT of head performed due to some increased weakness/concerns, finding negative at this time. Sling remain onthe right arm. No falls or injuries. Bed alarm on for safety, call light in reach. Problem: Lack of Knowledge: Goal: Ability to state ways to decrease the risk of falls will improve Outcome: Progressing Problem: Safety: Goal: Will remain free from falls Outcome: Progressing Goal: Will remain free from injury from falls Outcome: Progressing Goal: Will remain free from falls and injury in home environment Outcome: Progressing Problem: Lack of Knowledge: Goal: Understanding of ways to prevent future skin breakdown will improve Outcome: Progressing Goal: Ability to identify appropriate dietary choices will improve Outcome: Progressing Problem: Nutritional: Goal: Dietary intake will improve Outcome: Progressing Goal: Ability to maintain a balanced intake and output will improve Outcome: Progressing Problem: Skin Integrity: Goal: Risk for impaired skin integrity will decrease Outcome: Progressing Goal: Ability to demonstrate warm and dry skin will improve Outcome: Progressing Goal: Circulation will improve to fullest extent possible Outcome: Progressing * Initial Assessments - Cori Jon RN - 07/31/2022 10:32 AM CDT CM Initial Assessment Interview Note Information Obtained From: Patient (and chart. Patient gave a little information) (07/31/22 1032) Admission Source: ED EMS Impression: Multiple falls recently, presents with facial fracture and right humerus fracture Plan Includes: Assessment and DC planning Primary Source of Transportation: Does the patient need discharge transport arranged?: Yes Has discharge transport been arranged?: No (07/30/22 1208) Health Insurance Coverage: [facility] Medicare Prescription Coverage: yes Pharmacy: [facility] (Home Delivery) [facility] [address] [facility] [facility] [address] Primary Care Provider: Abiodun Novak MD Prior to Admission: Primary Caregiver: Self Who does the patient or legal guardian want to receive education instruction and discharge plans for after care assistance?: Name Caregiver Name: aRine Relationship to patient: Spouse Caregiver Contact Information: see HIPPA Support System: Spouse/Significant Other Support system contact info (name, phone, availablity): Raine Юлия [phone] Home Care Services: No Living Arrangements: Alone Type of Residence: Assisted living Does patient wish to return to care facility?: Unable to assess Will the care facility allow the patient to return?: Other (comment) (being worked up for SNF/ECF) Care Facility Name: [facility] from [facility] Facility contact name and number:: [phone] Steps in home? : No steps inside or outside (07/30/22 1208) SDOH: Transportation: In the past 12 months, has lack of transportation kept you from medical appointments or from getting medications?: No In the past 12 months, has lack of transportation kept you from meetings, work, or from getting things needed for daily living?: No (07/31/22 1307) Financial Resource: How hard is it for you to pay for the very basics like food, housing, medical care, and heating?: Somewhat hard (07/31/22 130) Housing: In the last 12 months, was there a time when you were not able to pay the mortgage or rent on time?: No In the last 12 months, was there a time when you did not have a steady place to sleep or slept in ashelter (including now)?: No (07/31/22 130) Social Connections: In a typical week, how many times do you talk on the phone with family, friends, or neighbors?: Three times a week How often do you get together with friends or relatives?: Never How often do you attend jehovah's witness or mosque services?: Never Do you belong to any clubs or organizations such as jehovah's witness groups, unions, fraternal or athletic groups, or school groups?: No How often do you attend meetings of the clubs or organizations you belong to?: Never Are you , , , , never , or living with a partner?: (07/31/22 130) Food Insecurity: Within the past 12 months, you worried that your food would run out before you got the money to buymore.: Never true Within the past 12 months, the food you bought just didn't last and you didn't have money to get more.: Never true (07/31/22 130) Alcohol Use: PHQ Screening Potential discharge needs include: Home Health: assisted, Physical therapy, Occupational therapy (07/31/22 103) Dialysis: Behavioral Health Services: Behavioral Health Services: No (07/31/22 103) Patient expects to be Discharged to: Longterm Facility, (07/31/22 1032) Additional Information: It was difficult to communicate with this patient, but I did get some information from him. The rest was obtained from his chart. He came here from [facility] (assisted living) with multiple falls and injuries. SW has spoken with his MPOA Raine, and she agrees that patient needs to go to rehab for strengthening and safety. Social Work is assisting with the process of placement. Patient's Identified Problem/Goal Problem: Ensure acute medical needs are met and that patient has a safe discharge plan. Goal: Secure a discharge plan that patient/family are agreeable with and ensure patient has continuum of care. Case management will send referrals as needed. Cori Jon RN * Plan of Care - Candis Ferreira LCSW - 07/31/2022 10:17 AM CDT Spoke with pt's ex-, Raine Guajardo, regarding recommendations for rehab/snf. She agreed to have referrals sent to several facilities near her to find out which are able to meet pt's medical needs and accepts his [facility] Medicare. SW sent referrals via [employer] to: [facility]- [facility]- [facility]- [facility])- [facility] Extended Care- * ECIN Note - Candis Ferreira LCSW - 07/31/2022 8:56 AM CDT Images from the original note were not included. Patient Information: OT Eval and Treat Last 72 Hours OT Evaluation Row Name 07/30/22 6453 Chart Reviewed Yes -MS Session Type Evaluation -MS OT Received On 07/30/22 -MS Safe Environment Arm band checked;Patient found in supine -MS Subjective Agreeable to Therapy -MS Family/Caregiver Present No -MS Occupational Therapy-Patient Goal none stated. -MS Precautions Fall risk -MS Weight Bearing Restrictions Yes -MS RLE Weight Bearing NWB -MS Braces/Orthoses Sling -MS Precaution Comments Rt proximal humerus fx -MS Type of Home Assisted Living Facility -MS Home Layout One level -MS Home Access Level entry -MS Bathroom Shower/Tub Walk-in shower with threshold -MS Bathroom Toilet Standard -MS Bathroom Equipment Grab bars in shower/tub;Built-in shower seat;Hand-held shower -MS Level of [place] Needs assistance with ADLs;Independent functional transfers;Independent with ambulation;Dependent with homemaking -MS Lives With Alone -MS Receives Help From Other (Comment) staff at facility -MS Driving No pt states he has a car and still drives but was unable to state the last time he has driven -MS Fall within the last 6 months Yes -MS Fall within the last 6 months comment 3 falls in day prior to admission -MS ADLS (WDL) X -MS LE Dressing: Where assessed Sitting;Edge of bed -MS LE Dressing: Level of assistance Dependent -MS LE Dressing: Assistance with Don/doff R sock;Don/doff L sock -MS Pain Assessment No/denies pain -MS Activity Tolerance Comments rest breaks with activity -MS Overall Cognitive Status Impaired -MS Arousal/Alertness Alert -MS Memory Decreased recall of precautions;Decreased recall of recent events;Decreased short term memory -MS Current communication Appears Intact -MS Orientation Oriented to person pt unable to recal current month or year, uncertain of place -MS Following Commands Follows one step commands with increased time -MS Safety Judgment Decreased awareness of need for safety -MS Insight Decreased awareness of deficits -MS Compliance/Behavior Easy to engage -MS Numbness/Tingling No -MS Static Sitting-Balance Support Left upper extremity supported;Feet supported -MS Static Sitting-Sitting Surface Bed -MS Static Sitting-Level of Assistance Close supervision -MS Static Standing-Balance Support Left upper extremity supported -MS Static Standing-Standing Surface Floor -MS Static Standing-Level of Assistance Minimum assistance min assist of 2 -MS Bed Mobility From 1 Supine -MS Bed Mobility Type 1 To and from -MS Bed Mobility to 1 Edge of bed -MS Level of Assistance 1 -- min assist of 2 -MS Transfer From 1 Bed -MS Transfer Type 1 To and from -MS Transfer to 1 Stand -MS Technique 1 Sit to stand;Stand to sit -MS Transfer Device 1 Hand held assist -MS Transfer Level of Assistance 1 -- min assist o f 2, limited standing tolerance, fatigues quickly, sits without warning -MS RUE Assessment -- not tested due to orthopedic precautions -MS LUE Assessment WFL -MS Putting on and taking off regular lower body clothing 1 -MS Bathing 2 -MS Toileting 1 -MS Putting on and taking off upper body clothing 2 -MS Personal Grooming 2 -MS Eating Meals 2 -MS Total Score (range 6-24) 10 -MS Score Interpretation 27.31 -MS Safe Environment End of Therapy Session Patient left supine in bed;Bed alarm in place and activated;RN notified;Call light within reach;Overbed table within reach -MS Prognosis Excellent -MS Problem List Decreased cognition;Decreased upper extremity strength;Decreased safe judgment during ADL;Decreased balance;Decreased functional mobility;Decreased ADL independence -MS Plan Plan of care initiated;If this is the last note, consider this the discharge summary -MS OT Recommendation Longterm Facility -MS Patient at high risk for Falls;Readmission;Injury due to reduced functional status;Injury due to decreased ability to care for self;Injury due to impaired cognition;Injury due to balance deficits;Injury at home as patient has not returned to prior level of function;Developing impaired skin integrity -MS Recommend SNF due to Risk of injury at home;Skilled therapy needed to address care for self in the home;Unable to safely care for self in the home;Skilled therapy needed to address functional deficits;Skilled therapy needed for patient to return to prior level of independence -MS OT Frequency during current admission 2-3x/wk Mon-Fri, Sat PRN -MS Treatment/Interventions during current admission Balance Training;ADL/IADL retraining;Bed mobility;Functional activity;Functional mobility training;Strengthening;Therapeutic exercise -MS OT Evaluation Complete Yes -MS User Perdomo (r) = Recorded By, (t) = Taken By, (c) = Cosigned By Initials Name Effective Dates MS Damir Hargrove OT 12/07/20 - OT Treatment No documentation. OT Notes 07/30/2022 2:09 PM Progress Notes signed by Damir Hargrove OT , PT Eval and Treat Last 72 Hours PT Evaluation Row Name 07/30/22 2848 Chart Reviewed Yes -LM Session Type Evaluation -LM Safe Environment Patient found in supine;Arm band checked -LM Subjective Agreeable to Therapy -LM Additional Pertinent History hx of 4 brain bleeds, was living at assisted living per nursing. Ox1 normal for pt -LM Family/Caregiver Present No -LM Physical Therapy-Patient Goal unstated -LM Precautions Bed/Chair Alarm;Fall risk -LM Precaution Comments R arm prox humeral fx impacted, facial fx. NWB in sling w R arm. sinus precautions: HOB at 30 degrees at all times, no straining, no lifting more than 10 lbs, no nose blowing, open mouth sneezing -LM Type of Home Assisted Living Facility recieved info from nursing -LM Home Layout One level -LM Home Access Level entry -LM Home Mobility Equipment -- unknown -LM Level of [place] Needs assistance with ADLs;Independent with ambulation;Independent functionaltransfers -LM Lives With Alone may live in same location but unknown -LM Fall within the last 6 months Yes -LM Fall within the last 6 months comment 3x in the last several days -LM Pain Assessment FLACC -LM Pain Rating: FLACC (Rest) - Face 1 -LM Pain Rating: FLACC (Rest) - Legs 0 -LM Pain Rating: FLACC (Rest) - Activity 0 -LM Pain Rating: FLACC (Rest) - Cry 0 -LM Pain Rating: FLACC (Rest) - Consolability 0 -LM Score: FLACC (Rest) 1 -LM Pain Rating: FLACC (Activity) - Face 0 -LM Pain Rating: FLACC (Activity) - Legs 0 -LM Pain Rating: FLACC (Activity) 0 -LM Pain Rating: FLACC (Activity) - Cry 0 -LM Pain Rating: FLACC (Activity) - Consolability 0 -LM Score: FLACC (Activity) 0 -LM Overall Cognitive Status Impaired -LM Arousal/Alertness Alert -LM Attention Span Appears intact -LM Memory Decreased short term memory;Decreased usp memory -LM Current communication Appears Intact -LM Orientation Oriented to person -LM Safety Judgment Decreased awareness of need for safety -LM Balance Yes -LM Static Sitting-Balance Support Bilateral upper extremity supported -LM Static Sitting-Sitting Surface Bed -LM Static Sitting-Level of Assistance Close supervision -LM Static Standing-Balance Support Bilateral upper extremity supported -LM Static Standing-Standing Surface Floor -LM Static Standing-Level of Assistance Minimum assistance x2 -LM Bed Mobility Yes -LM Bed Mobility From 1 Supine -LM Bed Mobility Type 1 To and from -LM Bed Mobility to 1 Edge of bed -LM Level of Assistance 1 Minimum Assist x2 -LM Transfer Yes -LM Transfer From 1 Bed;Sit -LM Transfer Type 1 To and from -LM Transfer to 1 Stand;Floor -LM Technique 1 Stand to sit;Sit to stand -LM Transfer Device 1 Hand held assist -LM Transfer Level of Assistance 1 Minimum Assist x2 -LM Distance (ft) 1 3 steps -LM Surface 1 Level tile -LM Device 1 Hand held assist -LM Assistance 1 Minimum Assist x2 -LM Gait: Requires assist with 1 Maintaining balance -LM Gait: Requires verbal cues to 1 Increase step length;Increase base of support;Pace activity -LM Quality of Gait 1 dec stability in standing, wants to sit too early, dec endurance, unsteady -LM RLE Assessment WFL -LM LLE Assessment WFL -LM Other PT Comments does not remember that he fell and broke his arm. -LM How much difficulty does the patient have: Turning over in bed 3 -LM How much difficulty does the patient currently have: Sitting down and standing up from a chair witharms? 3 -LM How much difficulty does the patient have: Moving from lying on back to sitting on the side of the bed? 3 -LM How much difficulty does the patient have: Moving to and from a bed to a chair including wheelchair? 3 -LM How much help does the patient currently need: Walk in hospital room? 1 -LM How much help from another person does the patient currently need: Climbing 3-5 steps with a railing? 1 -LM Total 6 Click Score (range 6-24) 14 -LM Score Interpretation 35.55 -LM Safe Environment End of Therapy Session Patient left supine in bed;RN notified;Bed alarm in place and activated;Call light within reach;Overbed table within reach -LM Prognosis Good -LM Problem List Gait deviations;Decreased strength;Decreased range of motion;Decreased endurance;Impaired balance;Decreased mobility;Decreased cognition;Impaired judgement;Decreased safety awareness -LM Barriers to Discharge Current Mobility Status -LM Plan Plan of care initiated;If this is the last note, consider this the discharge summary -LM PT Recommendation/Plan Longterm Facility cannot stand or get out of bed alone. pt will require 24 hr supervision due to cognition, fell 2x -3x at current home when alone per chart review -LM Patient at high risk for Falls;Readmission -LM Recommend SNF due to Risk of injury at home;Unable to safely care for self in the home;Skilled therapy needed to address care for self in the home;Skilled therapy needed to address functional deficits;Skilled therapy needed for patient to return to prior level of independence -LM PT Frequency during current admission Daily -LM Treatment/Interventions during current admission Balance Training;Bed mobility;Endurance training;Functional activity;Gait training;Functional transfer training;Range of motion;Therapeutic activity;Strengthening;Therapeutic exercise;Transfer training -LM PT Equipment Recommended None -LM PT Evaluation Complete Yes -LM User Perdomo (r) = Recorded By, (t) = Taken By, (c) = Cosigned By Initials Name Effective Dates LM Vanessa Evans, PT 12/07/20 - PT TREATMENT (last 168 hours) PT Treatment No documentation. PT Notes 07/30/2022 2:31 PM Progress Notes signed by Vanessa Evans, PT , OPERATIONS AGENT Eval and Treat Last 72 Hours OPERATIONS AGENT Evaluation No documentation. OPERATIONS AGENT Treatment No documentation. Clinical Swallow Study No documentation. OPERATIONS AGENT Notes Notes from 07/29/22 through 07/31/22 No notes of this type exist for this encounter. * ECIN Note - Candis Ferreira LCSW - 07/31/2022 8:56 AM CDT Images from the original note were not included. Patient Information: Referral Summary Patient Information Patient Name: JANIA GUAJARDO Date of 1950 (72 years) Sex: Male Attending Provider: Janice Corea MD Allergies: Penicillins Isolation: Contact Infection: MDR gram neg/ESBL (12/21/19) Code Status: FULL Ht: 167.6 cm (5' 6 ) Wt: 81.8 kg (180 lb 5.4 oz) Admission Cmt: None Principal Problem: Frequent falls [R29.6] Elopement Risk Date/Time Risk/Reason for Elopement User 07/30/22 1208 Neurocognitive disorder KDS 07/29/222025 No risk DS Intake/Output 07/30/22 0700 - 07/31/22 0659 [id number] 2870-1952 2820-0659 Total Intake (ml) -- -- -- -- Output (ml) -- 500 -- 500 Net (ml) -- -500 -- -500 Last Weight 81.8 kg (180 lb 5.4 oz) -- -- -- Patient Lines/Drains/Airways Status Active Airway / Central venous catheter / Drain / Epidural cathether / Intraosseous line / Peripherally inserted central catheter / Peripheral intravenous line / Arterial line Name Placement date Placement time Site Days External Urinary Catheter 07/30/22 1445 -- less than 1 Peripheral IV 07/29/22 20 G Left;Posterior Wrist 07/29/22 2030 Wrist 1 Active Wound Assessment Active Wound / Pressure ulcer / Johnson / Negative Pressure Wound / Incision Wound 06/27/21 MASD (Moisture associated skin damage) Perineum , buttocks Date First Assessed 06/27/21 Site Perineum Time First Assessed 1425 Days 398 Wound Type: MASD (Moisture associated skin damage) Wound Description (Comments): , buttocks Hardin Fall Risk Flowsheet Row Most Recent Value Prior Fall Event (Autopopulated from EMR) None found ............filed at 07/30/20221999 History of Falling 25 ............filed at 07/30/20221999 Secondary Diagnosis 15 ............filed at 07/30/20221999 Ambulatory Aids 0 ............filed at 07/30/20221999 Intravenous Therapy/Heparin/Saline Lock 0 ............filed at 07/30/20221999 Gait/Transferring 20 ............filed at 07/30/20221999 Mental Status 15 ............filed at 07/30/20221999 Hardin Fall Risk Score 75 ............filed at 07/30/20221999 Vital Signs 07/30 0700 07/31 0659 07/31 0700 07/31 0856 Most Recent Temp (??C) 36 - 37.1 36 36 (96.8) 07/31 0810 Pulse 71 - 107 89 89 07/31 0810 Resp 18 - 24 18 18 07/31 0810 SpO2 (%) 95 - 99 95 - 97 95 07/31 0810 BP 109/75 - 153/88 130/76 130/76 07/31 0810 MAP (mmHg) 83 - 106 87 87 07/31 0810 Non Violent Restraint Flowsheet Row Most Recent Value Restraint Alternative Less Restrictive Alternative Verbal redirection, Decrease stimulation, Comfort Measures, Bed Exit Alarm filed at 07/30/2022 2300 Restraint Reason Restraint Type (NV) Every 2 Hours Default Flowsheet Data (most recent) Endurance Tests No documentation. Default Flowsheet Data (last 48 hours) Oxygen Row Name 07/31/22 0810 07/31/22 0759 07/31/22 0326 07/30/22 2250 07/30/22 1959 Oxygen Therapy/Pulse Ox O2 Therapy None (Room air) None (Room air) None (Room air) None (Room air) None (Room air) SpO2 95 % 97 % 99 % 95 % 98 % $ Pulse Oximetry Spot Check -- Yes -- -- -- Row Name 07/30/22 1948 07/30/22 1550 07/30/22 1442 07/30/22 1438 07/30/22 1208 Oxygen Therapy/Pulse Ox O2 Therapy None (Room air) -- -- None (Room air) None (Room air) SpO2 98 % 96 % -- -- -- Patient Activity -- -- -- -- At rest $ Pulse Oximetry Spot Check -- -- Yes -- -- Row Name 07/30/22 1147 07/30/22 1015 07/30/22 0915 07/30/22 0900 07/30/22 0815 Oxygen Therapy/Pulse Ox O2 Therapy None (Room air) -- -- -- -- SpO2 97 % 96 % 96 % 96 % 98 % Row Name 07/30/22 0745 07/30/22 0730 07/30/22 0715 07/30/22 0659 07/30/22 0425 Oxygen Therapy/Pulse Ox O2 Therapy -- -- -- None (Room air) -- SpO2 97 % 99 % 98 % 100 % 97 % Row Name 07/30/22 0120 07/30/22 0005 07/29/22 2330 07/29/22 2245 07/29/22 2239 Oxygen Therapy/Pulse Ox SpO2 97 % 100 % 100 % 97 % 99 % Row Name 07/29/22 2230 07/29/22 2152 07/29/22 2145 07/29/22 21307/29/22 2100 Oxygen Therapy/Pulse Ox SpO2 100 % 97 % 97 % 97 % 92 % Row Name 07/29/222023 Oxygen Therapy/Pulse Ox O2 Therapy None (Room air) SpO2 97 % Nursing Nutrition None Nursing Mobility Activity 07/30 171 Sleeping 07/30 155 Resting in bed Level of Assistance 07/30 1710 Moderate assist, patient does 50-74% 07/30 1550 Moderate assist, patient does 50-74% Repositioned 07/31 1999 Right side;Pillow support;Semi Bird's 07/30 1710 Left side 07/30 1550 Supine Positioning Frequency 07/31 1999 Able to turn self 07/30 1710 Able to turn self 07/30 155 Able to turn self Head of Bed Elevated 07/31 1999 HOB 30 07/30 1711 HOB 30 07/30 1550 HOB Flat Heels/Feet 07/31 1999 Foot of bed elevated 07/30 171 Foot of bed elevated 07/30 1550 Foot of bed elevated Range of Motion 07/31 1999 All extremities 07/30 1711 Active;All extremities 07/30 1550 Active;All extremities Type of Device 07/31 1999 Mechanical compression Mechanical Compression Site 07/31 1999 Bilateral Mechanical Compression Type 07/31 1999 IPC/SCD Mechanical Compression Status 07/31 1999 Off Default Flowsheet Data (last 24 hours) Sitter Documentation Row Name 07/30/22 2300 Sitter Documentation Sitter Initiated Sitter Type Medical/Safety RN Safety Check Other (Comment) Patient attempting unsafe/ unsupervised bed exit. All Meds/Most Recent Administrations All Meds/Most Recent Administrations magnesium sulfate 2 g/50 mL in water (premix) 2 g [[id number]] Ordering Provider: Byron Torres MD Status: Completed (Past End Date/Time) Ordered On: 07/29/222026 Starts/Ends: 07/29/222027 - 07/29/222114 Ordered Dose (Remaining/Total): 2,000 mg (0/1) Route: intravenous Frequency: Once Ordered Rate/Order Duration: -- / 60 Minutes Line Med Link Info Comment Peripheral IV 07/29/22 20 G Left;Posterior Wrist 07/29/222052 by Jose Alfredo Avitia RN -- Timestamps Action Dose / Duration Route Other Information 07/29/222052 New Bag 2 g 60 Minutes intravenous Performed by: Jose Alfredo Avitia RN dilTIAZem (CARDIZEM) injection 15 mg [[id number]] Ordering Provider: Byron Torres MD Status: Completed (Past End Date/Time) Ordered On: 07/29/222143 Starts/Ends: 07/29/222144 - 07/29/222153 Ordered Dose (Remaining/Total): 15 mg (0/1) Route: intravenous Frequency: Once Ordered Rate/Order Duration: -- / 2 Minutes Admin Instructions: Refrigerate Line Med Link Info Comment Peripheral IV 07/29/22 20 G Left;Posterior Wrist 07/29/222151 by Jose Alfredo Avitia RN -- Timestamps Action Dose / Duration Route Other Information 07/29/222151 Given 15 mg 2 Minutes intravenous Performed by: Jose Alfredo Avitia RN Scanned Package: 7651-4086-85 dilTIAZem CD/XR/XT (CARDIZEM CD,DILACOR XR) 24 hour capsule 120 mg [[id number]] Ordering Provider: Byron Torres MD Status: Completed (Past End Date/Time) Ordered On: 07/29/222203 Starts/Ends: 07/29/222214 - 07/29/222227 Ordered Dose (Remaining/Total): 120 mg (0/1) Route: oral Frequency: Once Ordered Rate/Order Duration: -- / -- Admin Instructions: Do not crush, chew, cut, dissolve, open or otherwise manipulate tablet/capsule. Timestamps Action Dose Route Other Information 07/29/222227 Given 120 mg oral Performed by: Jose Alfredo Avitia RN Scanned Package: 32541-721-70 ramelteon (ROZEREM) tablet 8 mg [[id number]] Ordering Provider: Byron Torres MD Status: Discontinued (Past End Date/Time) Ordered On: 07/29/222211 Starts/Ends: 07/29/222212 - 07/30/22 0847 Ordered Dose (Remaining/Total): 8 mg (--/--) Route: oral Frequency: Nightly Ordered Rate/Order Duration: -- / -- Timestamps Action Dose Route Other Information 07/29/222227 Given 8 mg oral Performed by: Jose Alfredo Avitia RN Scanned Package: 77754-878-91 potassium chloride (KLOR-CON) packet 60 mEq [[id number]] Ordering Provider: Byron Torres MD Status: Completed (Past End Date/Time) Ordered On: 07/29/222216 Starts/Ends: 07/29/222217 - 07/29/222229 Ordered Dose (Remaining/Total): 60 mEq (0/1) Route: oral Frequency: Once Ordered Rate/Order Duration: -- / -- Admin Instructions: Dissolve one packet in at least 120 mL of cold water or other beverage prior toadministration. Timestamps Action Dose Route Other Information 07/29/222229 Given 60 mEq oral Performed by: Jose Alfredo Avitia RN Scanned Package: [address]-9, [address]-8, [address]-7 enoxaparin (LOVENOX) syringe 40 mg [[id number]] Ordering Provider: Byron Torres MD Status: Dispensed Ordered On: 07/29/222222 Start: 07/29/222223 Ordered Dose (Remaining/Total): 40 mg (--/--) Route: subcutaneous Frequency: Daily (for enoxaparin) Ordered Rate/Order Duration: -- / -- Timestamps Action Dose Route / Site Other Information 07/30/222052 Given 40 mg subcutaneous Left Upper Abdomen Performed by: Araceli Moura RN Scanned Package: 56288-448-22 acetaminophen (TYLENOL) tablet 1,000 mg [[id number]] Ordering Provider: Byron Torres MD Status: Dispensed Ordered On: 07/29/222222 Start: 07/29/222222 Ordered Dose (Remaining/Total): 1,000 mg (--/--) Route: oral Frequency: Every 6 hours PRN Ordered Rate/Order Duration: -- / -- Timestamps Action Dose Route Other Information 07/31/22 0110 Given 1,000 mg oral Performed by: Araceli Moura RN Scanned Package: 47886-957-47, 13467-540-26 senna (SENOKOT) tablet 1 tablet [[id number]] Ordering Provider: Brii Beverly MD Status: Discontinued (Past End Date/Time) Ordered On: 07/30/22642 Starts/Ends: 07/30/22899 - 07/30/22 0754 Ordered Dose (Remaining/Total): 1 tablet (--/--) Route: oral Frequency: 2 times daily Ordered Rate/Order Duration: -- / -- (No admins scheduled or recorded for this medication) pantoprazole DR (PROTONIX) extended release tablet 40 mg [[id number]] Ordering Provider: Brii Beverly MD Status: Dispensed Ordered On: 07/30/22642 Start: 07/30/22899 Ordered Dose (Remaining/Total): 40 mg (--/--) Route: oral Frequency: Daily Ordered Rate/Order Duration: -- / -- Admin Instructions: Do not crush, chew, cut, dissolve, open or otherwise manipulate tablet/capsule. Timestamps Action Dose Route Other Information 07/31/22 0830 Given 40 mg oral Performed by: Qian Hsieh RN Scanned Package: 93389-652-45 clopidogreL (PLAVIX) tablet 75 mg [[id number]] Ordering Provider: Brii Beverly MD Status: Discontinued (Past End Date/Time) Ordered On: 07/30/22642 Starts/Ends: 07/30/22899 - 07/30/22 0852 Ordered Dose (Remaining/Total): 75 mg (--/--) Route: oral Frequency: Daily Ordered Rate/Order Duration: -- / -- (No admins scheduled or recorded for this medication) amLODIPine (NORVASC) tablet 5 mg [[id number]] Ordering Provider: Brii Beverly MD Status: Dispensed Ordered On: 07/30/22642 Start: 07/30/22 09 Ordered Dose (Remaining/Total): 5 mg (--/--) Route: oral Frequency: Daily Ordered Rate/Order Duration: -- / -- Timestamps Action Dose Route Other Information 07/31/22 0830 Given 5 mg oral Performed by: Qian Hsieh RN Scanned Package: 71938-152-90 albuterol 2.5 mg /3 mL (0.083 %) nebulizer solution 2.5 mg [[id number]] Ordering Provider: Brii Beverly MD Status: Verified Ordered On: 07/30/22642 Start: 07/30/22642 Ordered Dose (Remaining/Total): 2.5 mg (--/--) Route: nebulization Frequency: Every 6 hours PRN (respite provider) Ordered Rate/Order Duration: -- / -- (No admins scheduled or recorded for this medication) sodium chloride 0.9% flush 0.5-20 mL [[id number]] Ordering Provider: Brii Beverly MD Status: Verified Ordered On: 07/30/22642 Start: 07/30/22643 Ordered Dose (Remaining/Total): 0.5-20 mL (--/--) Route: intra-catheter Frequency: Every 8 hours scheduled Ordered Rate/Order Duration: -- / -- Admin Instructions: Flush volume based on line type and size. Timestamps Action Dose Route Other Information 07/30/222053 Given 10 mL intra-catheter Performed by: Araceli Moura RN Scanned Package: [id number] sodium chloride 0.9% flush 0.5-20 mL [[id number]] Ordering Provider: Brii Beverly MD Status: Verified Ordered On: 07/30/22642 Start: 07/30/22642 Ordered Dose (Remaining/Total): 0.5-20 mL (--/--) Route: intra-catheter Frequency: As needed Ordered Rate/Order Duration: -- / -- Admin Instructions: Flush volume based on line type and size. Flush before and after each use. (No admins scheduled or recorded for this medication) Carrier Fluids for Secondary Infusion - 0.9% Sodium Chloride [[id number]] Ordering Provider: Brii Beverly MD Status: Verified Ordered On: 07/30/22642 Start: 07/30/22642 Ordered Dose (Remaining/Total): 30 mL (--/--) Route: intravenous Frequency: As needed Ordered Rate/Order Duration: -- / -- Admin Instructions: 0-250 ml/hr to flush line after IV infusions when no maintenance IV ordered. Infuse 30mL at the same rate as the secondary infusion. Run as primary IV, not intended for KVO. (No admins scheduled or recorded for this medication) ondansetron ODT (ZOFRAN-ODT) disintegrating tablet 4 mg [[id number]] Ordering Provider: Brii Beverly MD Status: Verified Ordered On: 07/30/22642 Start: 07/30/22642 Ordered Dose (Remaining/Total): 4 mg (--/--) Route: oral Frequency: Every 6 hours PRN Ordered Rate/Order Duration: -- / -- (No admins scheduled or recorded for this medication) ondansetron (ZOFRAN) injection 4 mg [[id number]] Ordering Provider: Brii Beverly MD Status: Verified Ordered On: 07/30/22642 Start: 07/30/22642 Ordered Dose (Remaining/Total): 4 mg (--/--) Route: intravenous Frequency: Every 6 hours PRN Ordered Rate/Order Duration: -- / 2 Minutes (No admins scheduled or recorded for this medication) metoprolol tartrate (LOPRESSOR) immediate release tablet 100 mg [[id number]] Ordering Provider: Brii Beverly MD Status: Dispensed Ordered On: 07/30/22642 Start: 07/30/22899 Ordered Dose (Remaining/Total): 100 mg (--/--) Route: oral Frequency: 2 times daily Ordered Rate/Order Duration: -- / -- Timestamps Action Dose Route Other Information 07/31/22 0830 Given 100 mg oral Performed by: Qian Hsieh RN Scanned Package: 67880-851-46, 06534-105-68 losartan (COZAAR) tablet 100 mg [[id number]] Ordering Provider: Brii Beverly MD Status: Dispensed Ordered On: 07/30/22642 Start: 07/30/22899 Ordered Dose (Remaining/Total): 100 mg (--/--) Route: oral Frequency: Daily Ordered Rate/Order Duration: -- / -- Timestamps Action Dose Route Other Information 07/31/2230 Given 100 mg oral Performed by: Qian Hsieh RN Scanned Package: 50205-611-81 sodium chloride (OCEAN) 0.65 % nasal spray 2 spray [[id number]] Ordering Provider: Steven Velez NP Status: Verified Ordered On: 07/30/22753 Start: 07/30/22752 Ordered Dose (Remaining/Total): 2 spray (--/--) Route: each nostril Frequency: Every 2 hours PRN Ordered Rate/Order Duration: -- / -- (No admins scheduled or recorded for this medication) polyethylene glycol (MIRALAX) packet 17 g [[id number]] Ordering Provider: Steven Velez NP Status: Dispensed Ordered On: 07/30/22753 Start: 07/30/22899 Ordered Dose (Remaining/Total): 17 g (--/--) Route: oral Frequency: Daily Ordered Rate/Order Duration: -- / -- Timestamps Action Dose Route Other Information 07/31/22830 Given 17 g oral Performed by: Qian Hsieh RN Scanned Package: 18368-497-37 senna-docusate (PERICOLACE) 8.6-50 mg per tablet 2 tablet [[id number]] Ordering Provider: Steven Velez NP Status: Dispensed Ordered On: 07/30/22753 Start: 07/30/22899 Ordered Dose (Remaining/Total): 2 tablet (--/--) Route: oral Frequency: 2 times daily Ordered Rate/Order Duration: -- / -- Timestamps Action Dose Route Other Information 07/31/22829 Given 2 tablet oral Performed by: Qian Hsieh RN Scanned Package: 12385-014-46, 79289-375-22 aspirin enteric coated tablet 81 mg [[id number]] Ordering Provider: Steven Velez NP Status: Dispensed Ordered On: 07/30/22846 Start: 07/30/22 09 Ordered Dose (Remaining/Total): 81 mg (--/--) Route: oral Frequency: Daily Ordered Rate/Order Duration: -- / -- Admin Instructions: Do not crush, chew, cut, dissolve, open or otherwise manipulate tablet/capsule. Timestamps Action Dose Route Other Information 07/31/22829 Given 81 mg oral Performed by: Qian Hsieh RN Scanned Package: [address]-9 atorvastatin (LIPITOR) tablet 10 mg [[id number]] Ordering Provider: Steven Velez NP Status: Dispensed Ordered On: 07/30/22846 Start: 07/30/22 2100 Ordered Dose (Remaining/Total): 10 mg (--/--) Route: oral Frequency: Nightly Ordered Rate/Order Duration: -- / -- Timestamps Action Dose Route Other Information 07/30/222052 Given 10 mg oral Performed by: Araceli Moura RN Scanned Package: 94210-382-85 budesonide-formoteroL (SYMBICORT) 80-4.5 mcg/actuation inhaler 2 puff [[id number]] Ordering Provider: Steven Velez NP Status: Dispensed Ordered On: 07/30/22846 Start: 07/30/22899 Ordered Dose (Remaining/Total): 2 puff (--/--) Route: inhalation Frequency: 2 times daily (respite provider) Ordered Rate/Order Duration: -- / -- Question Answer Comment I /authorizing provider attest that the patient meets the approved [facility] Use Criteria:: Yes -- Timestamps Action Dose Route Other Information 07/31/22758 Given 2 puff inhalation Performed by: Irene Das RRT Scanned Package: 6308-2658-52 ramelteon (ROZEREM) tablet 8 mg [[id number]] Ordering Provider: Stephanie, Steven Mabel, [employer] Status: Dispensed Ordered On: 07/30/22846 Start: 07/30/222099 Ordered Dose (Remaining/Total): 8 mg (--/--) Route: oral Frequency: Nightly Ordered Rate/Order Duration: -- / -- Timestamps Action Dose Route Other Information 07/30/222052 Given 8 mg oral Performed by: Araceli Moura RN Scanned Package: 80551-502-07 terazosin (HYTRIN) capsule 10 mg [[id number]] Ordering Provider: Steven Velez NP Status: Dispensed Ordered On: 07/30/22846 Start: 07/30/222099 Ordered Dose (Remaining/Total): 10 mg (--/--) Route: oral Frequency: Nightly Ordered Rate/Order Duration: -- / -- Timestamps Action Dose Route Other Information 07/30/222052 Given 10 mg oral Performed by: Araceli Moura RN Scanned Package: 33599-615-60, 87838-874-71 magnesium sulfate 2 g/50 mL in water (premix) 2 g [[id number]] Ordering Provider: Steven Velez NP Status: Completed (Past End Date/Time) Ordered On: 07/30/22 1004 Starts/Ends: 07/30/22 1005 - 07/30/22 112 Ordered Dose (Remaining/Total): 2 g (0/1) Route: intravenous Frequency: Once Ordered Rate/Order Duration: -- / 60 Minutes Line Med Link Info Comment Peripheral IV 07/29/22 20 G Left;Posterior Wrist 07/30/22 1019 by Lisa Day RN -- Timestamps Action Dose / Duration Route Other Information 07/30/22 1019 New Bag 2 g 60 Minutes intravenous Performed by: Lisa Day RN Scanned Package: 3690-6334-33 clopidogreL (PLAVIX) tablet 75 mg [[id number]] Ordering Provider: Steven Velez NP Status: Dispensed Ordered On: 07/30/22 1025 Start: 07/30/22 1026 Ordered Dose (Remaining/Total): 75 mg (--/--) Route: oral Frequency: Daily Ordered Rate/Order Duration: -- / -- Timestamps Action Dose Route Other Information 07/31/22 0830 Given 75 mg oral Performed by: Qian sHieh RN Scanned Package: 63994-456-53 traZODone (DESYREL) tablet 50 mg [[id number]] Ordering Provider: Steven Velez NP Status: Dispensed Ordered On: 07/30/22 1036 Start: 07/30/222099 Ordered Dose (Remaining/Total): 50 mg (--/--) Route: oral Frequency: Nightly Ordered Rate/Order Duration: -- / -- Timestamps Action Dose Route Other Information 07/30/222052 Given 50 mg oral Performed by: Araceli Moura RN Scanned Package: 23244-004-31 OT ASSESSMENT FLOWSHEET LAST DOCUMENTED (most recent) OT Evaluation - 07/31/22 0830 Pain Assessment Pain Score 0 - No pain OT TREATMENT FLOWSHEET LAST DOCUMENTED (most recent) OT Treatment - 07/31/22 0830 Pain Assessment Pain Score 0 - No pain OT Notes 07/30/2022 2:09 PM Progress Notes signed by Damir Hargrove, OT OT ASSESSMENT FLOWSHEET LAST DOCUMENTED (most recent) PT Evaluation - 07/31/22 0830 Pain Assessment Pain Score 0 - No pain PT TREATMENT (most recent) PT Treatment - 07/31/22 0830 Pain Assessment Pain Score 0 - No pain PT Notes 07/30/2022 2:31 PM Progress Notes signed by Vanessa Evans, PT OPERATIONS AGENT ASSESSMENT (most recent) OPERATIONS AGENT Evaluation - 07/31/22 0830 Pain Assessment Pain Score 0 - No pain OPERATIONS AGENT SWALLOW STUDY (most recent) Clinical Swallow Study No documentation. OPERATIONS AGENT TREATMENT (most recent) OPERATIONS AGENT Treatment - 07/31/22 0830 Pain Assessment Pain Score 0 - No pain OPERATIONS AGENT Notes Notes from 07/29/22 through 07/31/22 No notes of this type exist for this encounter. , Meds and Admin Active Only All Meds/Most Recent Administrations All Meds/Most Recent Administrations magnesium sulfate 2 g/50 mL in water (premix) 2 g [[id number]] Ordering Provider: Byron Torres MD Status: Completed (Past End Date/Time) Ordered On: 07/29/222026 Starts/Ends: 07/29/222027 - 07/29/222114 Ordered Dose (Remaining/Total): 2,000 mg (0/1) Route: intravenous Frequency: Once Ordered Rate/Order Duration: -- / 60 Minutes Line Med Link Info Comment Peripheral IV 07/29/22 20 G Left;Posterior Wrist 07/29/222052 by Jose Alfredo Avitia RN -- Timestamps Action Dose / Duration Route Other Information 07/29/222052 New Bag 2 g 60 Minutes intravenous Performed by: Jose Alfredo Avitia RN dilTIAZem (CARDIZEM) injection 15 mg [[id number]] Ordering Provider: Byron Torres MD Status: Completed (Past End Date/Time) Ordered On: 07/29/222143 Starts/Ends: 07/29/222144 - 07/29/222153 Ordered Dose (Remaining/Total): 15 mg (0/1) Route: intravenous Frequency: Once Ordered Rate/Order Duration: -- / 2 Minutes Admin Instructions: Refrigerate Line Med Link Info Comment Peripheral IV 07/29/22 20 G Left;Posterior Wrist 07/29/222151 by Jose Alfredo Avitia RN -- Timestamps Action Dose / Duration Route Other Information 07/29/222151 Given 15 mg 2 Minutes intravenous Performed by: Jose Alfredo Avitia RN Scanned Package: 9688-9010-34 dilTIAZem CD/XR/XT (CARDIZEM CD,DILACOR XR) 24 hour capsule 120 mg [[id number]] Ordering Provider: Byron Torres MD Status: Completed (Past End Date/Time) Ordered On: 07/29/222203 Starts/Ends: 07/29/222214 - 07/29/222227 Ordered Dose (Remaining/Total): 120 mg (0/1) Route: oral Frequency: Once Ordered Rate/Order Duration: -- / -- Admin Instructions: Do not crush, chew, cut, dissolve, open or otherwise manipulate tablet/capsule. Timestamps Action Dose Route Other Information 07/29/222227 Given 120 mg oral Performed by: Jose Alfredo Avitia RN Scanned Package: 13407-562-20 potassium chloride (KLOR-CON) packet 60 mEq [[id number]] Ordering Provider: Byron Torres MD Status: Completed (Past End Date/Time) Ordered On: 07/29/222216 Starts/Ends: 07/29/222217 - 07/29/222229 Ordered Dose (Remaining/Total): 60 mEq (0/1) Route: oral Frequency: Once Ordered Rate/Order Duration: -- / -- Admin Instructions: Dissolve one packet in at least 120 mL of cold water or other beverage prior toadministration. Timestamps Action Dose Route Other Information 07/29/222229 Given 60 mEq oral Performed by: Jose Alfredo Avitia RN Scanned Package: [address]-2, [address]-3, [address]-6 enoxaparin (LOVENOX) syringe 40 mg [[id number]] Ordering Provider: Byron Torres MD Status: Dispensed Ordered On: 07/29/222222 Start: 07/29/222223 Ordered Dose (Remaining/Total): 40 mg (--/--) Route: subcutaneous Frequency: Daily (for enoxaparin) Ordered Rate/Order Duration: -- / -- Timestamps Action Dose Route / Site Other Information 07/30/222052 Given 40 mg subcutaneous Left Upper Abdomen Performed by: Araceli Moura RN Scanned Package: 71780-042-63 acetaminophen (TYLENOL) tablet 1,000 mg [[id number]] Ordering Provider: Byron Torres MD Status: Dispensed Ordered On: 07/29/222222 Start: 07/29/222222 Ordered Dose (Remaining/Total): 1,000 mg (--/--) Route: oral Frequency: Every 6 hours PRN Ordered Rate/Order Duration: -- / -- Timestamps Action Dose Route Other Information 07/31/22109 Given 1,000 mg oral Performed by: Araceli Moura RN Scanned Package: 67388-908-47, 30505-784-[address] (PROTONIX) extended release tablet 40 mg [[id number]] Ordering Provider: Brii Beverly MD Status: Dispensed Ordered On: 07/30/22642 Start: 07/30/22899 Ordered Dose (Remaining/Total): 40 mg (--/--) Route: oral Frequency: Daily Ordered Rate/Order Duration: -- / -- Admin Instructions: Do not crush, chew, cut, dissolve, open or otherwise manipulate tablet/capsule. Timestamps Action Dose Route Other Information 07/31/22829 Given 40 mg oral Performed by: Qian Hsieh RN Scanned Package: 36642-901-40 amLODIPine (NORVASC) tablet 5 mg [[id number]] Ordering Provider: Brii Beverly MD Status: Dispensed Ordered On: 07/30/22642 Start: 07/30/22899 Ordered Dose (Remaining/Total): 5 mg (--/--) Route: oral Frequency: Daily Ordered Rate/Order Duration: -- / -- Timestamps Action Dose Route Other Information 07/31/22829 Given 5 mg oral Performed by: Qian Hsieh RN Scanned Package: 33176-826-00 albuterol 2.5 mg /3 mL (0.083 %) nebulizer solution 2.5 mg [[id number]] Ordering Provider: Brii Beverly MD Status: Verified Ordered On: 07/30/22642 Start: 07/30/22642 Ordered Dose (Remaining/Total): 2.5 mg (--/--) Route: nebulization Frequency: Every 6 hours PRN (respite provider) Ordered Rate/Order Duration: -- / -- (No admins scheduled or recorded for this medication) sodium chloride 0.9% flush 0.5-20 mL [[id number]] Ordering Provider: Brii Beverly MD Status: Verified Ordered On: 07/30/22642 Start: 07/30/22643 Ordered Dose (Remaining/Total): 0.5-20 mL (--/--) Route: intra-catheter Frequency: Every 8 hours scheduled Ordered Rate/Order Duration: -- / -- Admin Instructions: Flush volume based on line type and size. Timestamps Action Dose Route Other Information 07/30/222053 Given 10 mL intra-catheter Performed by: Araceli Moura RN Scanned Package: [id number] sodium chloride 0.9% flush 0.5-20 mL [[id number]] Ordering Provider: Brii Beverly MD Status: Verified Ordered On: 07/30/22642 Start: 07/30/22642 Ordered Dose (Remaining/Total): 0.5-20 mL (--/--) Route: intra-catheter Frequency: As needed Ordered Rate/Order Duration: -- / -- Admin Instructions: Flush volume based on line type and size. Flush before and after each use. (No admins scheduled or recorded for this medication) Carrier Fluids for Secondary Infusion - 0.9% Sodium Chloride [[id number]] Ordering Provider: Brii Beverly MD Status: Verified Ordered On: 07/30/22642 Start: 07/30/22642 Ordered Dose (Remaining/Total): 30 mL (--/--) Route: intravenous Frequency: As needed Ordered Rate/Order Duration: -- / -- Admin Instructions: 0-250 ml/hr to flush line after IV infusions when no maintenance IV ordered. Infuse 30mL at the same rate as the secondary infusion. Run as primary IV, not intended for KVO. (No admins scheduled or recorded for this medication) ondansetron ODT (ZOFRAN-ODT) disintegrating tablet 4 mg [[id number]] Ordering Provider: Brii Beverly MD Status: Verified Ordered On: 07/30/22642 Start: 07/30/22642 Ordered Dose (Remaining/Total): 4 mg (--/--) Route: oral Frequency: Every 6 hours PRN Ordered Rate/Order Duration: -- / -- (No admins scheduled or recorded for this medication) ondansetron (ZOFRAN) injection 4 mg [[id number]] Ordering Provider: Brii Beverly MD Status: Verified Ordered On: 07/30/22642 Start: 07/30/22642 Ordered Dose (Remaining/Total): 4 mg (--/--) Route: intravenous Frequency: Every 6 hours PRN Ordered Rate/Order Duration: -- / 2 Minutes (No admins scheduled or recorded for this medication) metoprolol tartrate (LOPRESSOR) immediate release tablet 100 mg [[id number]] Ordering Provider: Brii Beverly MD Status: Dispensed Ordered On: 07/30/22642 Start: 07/30/22899 Ordered Dose (Remaining/Total): 100 mg (--/--) Route: oral Frequency: 2 times daily Ordered Rate/Order Duration: -- / -- Timestamps Action Dose Route Other Information 07/31/22829 Given 100 mg oral Performed by: Qian Hsieh RN Scanned Package: 52592-942-38, 82485-403-63 losartan (COZAAR) tablet 100 mg [[id number]] Ordering Provider: Brii Beverly MD Status: Dispensed Ordered On: 07/30/22642 Start: 07/30/22899 Ordered Dose (Remaining/Total): 100 mg (--/--) Route: oral Frequency: Daily Ordered Rate/Order Duration: -- / -- Timestamps Action Dose Route Other Information 07/31/22829 Given 100 mg oral Performed by: Qian Hsieh RN Scanned Package: 58543-784-58 sodium chloride (OCEAN) 0.65 % nasal spray 2 spray [[id number]] Ordering Provider: Steven Velez NP Status: Verified Ordered On: 07/30/22753 Start: 07/30/22752 Ordered Dose (Remaining/Total): 2 spray (--/--) Route: each nostril Frequency: Every 2 hours PRN Ordered Rate/Order Duration: -- / -- (No admins scheduled or recorded for this medication) polyethylene glycol (MIRALAX) packet 17 g [[id number]] Ordering Provider: Steven Velez NP Status: Dispensed Ordered On: 07/30/22753 Start: 07/30/22899 Ordered Dose (Remaining/Total): 17 g (--/--) Route: oral Frequency: Daily Ordered Rate/Order Duration: -- / -- Timestamps Action Dose Route Other Information 07/31/22 0831 Given 17 g oral Performed by: Qian Hsieh RN Scanned Package: [id number] senna-docusate (PERICOLACE) 8.6-50 mg per tablet 2 tablet [[id number]] Ordering Provider: Steven Velez NP Status: Dispensed Ordered On: 07/30/22 0754 Start: 07/30/22 09 Ordered Dose (Remaining/Total): 2 tablet (--/--) Route: oral Frequency: 2 times daily Ordered Rate/Order Duration: -- / -- Timestamps Action Dose Route Other Information 07/31/22829 Given 2 tablet oral Performed by: Qian Hsieh RN Scanned Package: 40870-473-07, 88448-817-39 aspirin enteric coated tablet 81 mg [[id number]] Ordering Provider: Steven Velez NP Status: Dispensed Ordered On: 07/30/22846 Start: 07/30/22 09 Ordered Dose (Remaining/Total): 81 mg (--/--) Route: oral Frequency: Daily Ordered Rate/Order Duration: -- / -- Admin Instructions: Do not crush, chew, cut, dissolve, open or otherwise manipulate tablet/capsule. Timestamps Action Dose Route Other Information 07/31/22829 Given 81 mg oral Performed by: Qian Hsieh RN Scanned Package: [address]-1 atorvastatin (LIPITOR) tablet 10 mg [[id number]] Ordering Provider: Steevn Velez NP Status: Dispensed Ordered On: 07/30/22 0847 Start: 07/30/22 2100 Ordered Dose (Remaining/Total): 10 mg (--/--) Route: oral Frequency: Nightly Ordered Rate/Order Duration: -- / -- Timestamps Action Dose Route Other Information 07/30/222052 Given 10 mg oral Performed by: Araceli Moura RN Scanned Package: 08828-462-49 budesonide-formoteroL (SYMBICORT) 80-4.5 mcg/actuation inhaler 2 puff [[id number]] Ordering Provider: Steven Velez NP Status: Dispensed Ordered On: 07/30/22846 Start: 07/30/22 0900 Ordered Dose (Remaining/Total): 2 puff (--/--) Route: inhalation Frequency: 2 times daily (respite provider) Ordered Rate/Order Duration: -- / -- Question Answer Comment I /authorizing provider attest that the patient meets the approved [facility] Use Criteria:: Yes -- Timestamps Action Dose Route Other Information 07/31/22 0759 Given 2 puff inhalation Performed by: Irene Das RRT Scanned Package: 1030-4362-69 ramelteon (ROZEREM) tablet 8 mg [[id number]] Ordering Provider: Steven Velez NP Status: Dispensed Ordered On: 07/30/22846 Start: 07/30/222099 Ordered Dose (Remaining/Total): 8 mg (--/--) Route: oral Frequency: Nightly Ordered Rate/Order Duration: -- / -- Timestamps Action Dose Route Other Information 07/30/222052 Given 8 mg oral Performed by: Araceli Moura RN Scanned Package: 07200-713-10 terazosin (HYTRIN) capsule 10 mg [[id number]] Ordering Provider: Steven Velez NP Status: Dispensed Ordered On: 07/30/22846 Start: 07/30/222099 Ordered Dose (Remaining/Total): 10 mg (--/--) Route: oral Frequency: Nightly Ordered Rate/Order Duration: -- / -- Timestamps Action Dose Route Other Information 07/30/222052 Given 10 mg oral Performed by: Araceli Moura RN Scanned Package: 57904-184-66, 68507-981-78 magnesium sulfate 2 g/50 mL in water (premix) 2 g [[id number]] Ordering Provider: Steven Velez NP Status: Completed (Past End Date/Time) Ordered On: 07/30/22 1004 Starts/Ends: 07/30/22 1005 - 07/30/22 1122 Ordered Dose (Remaining/Total): 2 g (0/1) Route: intravenous Frequency: Once Ordered Rate/Order Duration: -- / 60 Minutes Line Med Link Info Comment Peripheral IV 07/29/22 20 G Left;Posterior Wrist 07/30/22 1019 by Lisa Day RN -- Timestamps Action Dose / Duration Route Other Information 07/30/22 1019 New Bag 2 g 60 Minutes intravenous Performed by: Lisa Day RN Scanned Package: 8934-2704-69 clopidogreL (PLAVIX) tablet 75 mg [[id number]] Ordering Provider: Steven Velez NP Status: Dispensed Ordered On: 07/30/22 1025 Start: 07/30/22 1026 Ordered Dose (Remaining/Total): 75 mg (--/--) Route: oral Frequency: Daily Ordered Rate/Order Duration: -- / -- Timestamps Action Dose Route Other Information 07/31/22 0830 Given 75 mg oral Performed by: Qian Hsieh RN Scanned Package: 10465-147-61 traZODone (DESYREL) tablet 50 mg [[id number]] Ordering Provider: Steven Velez NP Status: Dispensed Ordered On: 07/30/22 1036 Start: 07/30/22 2100 Ordered Dose (Remaining/Total): 50 mg (--/--) Route: oral Frequency: Nightly Ordered Rate/Order Duration: -- / -- Timestamps Action Dose Route Other Information 07/30/222052 Given 50 mg oral Performed by: Araceli Moura RN Scanned Package: 25401-869-84 * Plan of Care - Candis Ferreira LCSW - 07/31/2022 8:01 AM CDT Level I PASSR completed 07/31/22. * Plan of Care - Araceli Moura RN - 07/31/2022 3:33 AM CDT Goals: Clinical Goals for the Shift: Patient to have adequate pain control and safety to be maintained Summary: Patient alert and oriented to self. Patient able to make all basic wants and needs known. malt house loader initiated due to attempt of unsafe/ unassisted transfer out of bed and multiple recentfalls. Remains stable on room air/ Safety maintained this shift. Problem: Health Behavior: Goal: Understanding of discharge needs will improve Outcome: Not Progressing Problem: Lack of Knowledge: Goal: Ability to state ways to decrease the risk of falls will improve Outcome: Not Progressing Problem: Safety: Goal: Will remain free from falls Outcome: Not Progressing Goal: Will remain free from injury from falls Outcome: Not Progressing Goal: Will remain free from falls and injury in home environment Outcome: Not Progressing Problem: Activity: Goal: Mobility will improve Outcome: Not Progressing Problem: Lack of Knowledge: Goal: Understanding of ways to prevent future skin breakdown will improve Outcome: Not Progressing Goal: Ability to identify appropriate dietary choices will improve Outcome: Not Progressing Problem: Nutritional: Goal: Dietary intake will improve Outcome: Not Progressing Goal: Ability to maintain a balanced intake and output will improve Outcome: Not Progressing Problem: Skin Integrity: Goal: Risk for impaired skin integrity will decrease Outcome: Not Progressing Goal: Ability to demonstrate warm and dry skin will improve Outcome: Not Progressing Goal: Circulation will improve to fullest extent possible Outcome: Not Progressing * Plan of Care - Glenis Mooney RN - 07/30/2022 4:31 PM CDT Goals: Clinical Goals for the Shift: Patient to remain safe and comfortable, vital signs to remain stable,patient to tolerate physical and occupational therapy. Summary: The patient has remained safe and comfortable. The patient is not alert or oriented at this time which is the patients baseline according to family. The patient has had no complaints of painor discomfort. Vital signs have remained stable. The patient is resting comfortably. The family hasbeen updated and the patient was evaluated by PT and OT. The patient awaits placement to a senior living facility. Will continue to monitor for the remainder of the current shift. Problem: Health Behavior: Goal: Understanding of discharge needs will improve Outcome: Not Progressing Problem: Lack of Knowledge: Goal: Ability to state ways to decrease the risk of falls will improve Outcome: Not Progressing Problem: Safety: Goal: Will remain free from falls Outcome: Not Progressing Goal: Will remain free from injury from falls Outcome: Not Progressing Goal: Will remain free from falls and injury in home environment Outcome: Not Progressing Problem: Activity: Goal: Mobility will improve Outcome: Not Progressing Problem: Lack of Knowledge: Goal: Understanding of ways to prevent future skin breakdown will improve Outcome: Not Progressing Goal: Ability to identify appropriate dietary choices will improve Outcome: Not Progressing Problem: Nutritional: Goal: Dietary intake will improve Outcome: Not Progressing Goal: Ability to maintain a balanced intake and output will improve Outcome: Not Progressing Problem: Skin Integrity: Goal: Risk for impaired skin integrity will decrease Outcome: Not Progressing Goal: Ability to demonstrate warm and dry skin will improve Outcome: Not Progressing Goal: Circulation will improve to fullest extent possible Outcome: Not Progressing * ED Procedure Note - Byron Torres MD - 07/29/2022 8:28 PM CDT Associated Order(s): ECG 12 lead Procedure ECG 12 lead Date/Time: 07/29/2022 8:28 PM Performed by: Byron Torres MD Authorized by: Byron Torres MD Rate: ECG rate: 129 ECG rate assessment: tachycardic Rhythm: Rhythm: sinus rhythm ST segments: ST segments: Non-specific T waves: T waves: normal Byron Torres MD 07/29/222027 documented in this encounter Plan of Treatment Not on file documented as of this encounter Procedures Procedure Name Priority Date/Time Associated Diagnosis Comments CBC WITHOUT DIFFERENTIAL Routine 08/03/2022 6:34 AM CDT IRON PROFILE W/ IBC Add-On 08/02/2022 4 :22 AM CDT CBC WITHOUT DIFFERENTIAL Routine 08/02/2022 4:22 AM CDT PHOSPHORUS Routine 08/02/2022 4:22 AM CDT MAGNESIUM Routine 08/02/2022 4:22 AM CDT CBC WITHOUT DIFFERENTIAL Routine 08/01/2022 3:09 AM CDT PHOSPHORUS Routine 08/01/2022 3:09 AM CDT MAGNESIUM Routine 08/01/2022 3:[address] HEAD WO CONTRAST ED Urgent/IP Urgent 07/31/2022 11:49 AM CDT EGFR Routine 07/31/2022 2:54 AM CDT CBC WITHOUT DIFFERENTIAL Routine 07/31/2022 2:54 AM CDT PHOSPHORUS Routine 07/31/2022 2:54 AM CDT MAGNESIUM Routine 07/31/2022 2:54 AM CDT BASIC METABOLIC PANEL Routine 07/31/2022 2:54 AM CDT TRANSTHORACIC ECHO (TTE) LIMITED/FOLLOW UP WO DOPPLER/CF WO CONTRAST Routine 07/30/2022 3:[address] FACIAL BONES WO CONTRAST ED 07/30/2022 11:[address] HEAD WO CONTRAST ED 07/29/2022 9 :36 PM CDT XR CHEST 1 VIEW ED 07/29/2022 9:03 PM CDT XR SHOULDER RIGHT 2 OR MORE VIEWS ED 07/29/2022 9:03 PM CDT EGFR STAT 07/29/2022 8:28 PM CDT DIFFERENTIAL AUTO STAT 07/29/2022 8:2 8 PM CDT URINALYSIS AND REFLEX TO MICROSCOPIC AND CULTURE STAT 07/29/2022 8:28 PM CDT CBC WITH AUTO DIFFERENTIAL STAT 07/29/2022 8:28 PM CDT MAGNESIUM STAT 07/29/2022 8:28 PM CDT CREATINE KINASE (CK), TOTAL STAT 07/29/2022 8:28 PM CDT COMPREHENSIVE METABOLIC PANEL STAT 07/29/2022 8:28 PM CDT ECG 12-LEAD STAT 07/29/2022 8:21 PM CDT documented in this encounter Results * (ABNORMAL) CBC without differential (08/03/2022 6:34 AM CDT) WBC 4.8 3.8 - 9.9 K/cumm [facility] ([place]) Hgb 9.1(L) 13.0 - 17.5 g/dL [facility] ([place]) Hct 27.5(L) 38.9 - 50.3 % [facility] ([place]) Plt 133(L) 150 - 400 K/cumm [facility] ([place]) MPV 10.1 9.1 - 12.3 fL [facility] ([place]) RBC 2.77(L) 4.30 - 5.80 M/cumm [facility] ([place]) MCV 99.3(H) 81.3 - 96.4 fL [facility] ([place]) MCH 32.9 27.1 - 33.3 pg [facility] ([place]) MCHC 33.1 32.3 - 35.7 g/dL [facility] ([place]) RDW CV 13.7 11.1 - 14.9 % [facility] ([place]) RDW SD 48.9(H) 35.7 - 48.1 fL [facility] ([place]) NRBC abs 0.00 0.00 - 0.01 K/cumm [facility] ([place]) Blood 08/03/2022 6:34 AM CDT 08/03/2022 7:01 AM CDT us Steven Velez PRESS OFFBEARER LAB BLOOD ORDERABLE S Final Result [facility] ([place]) 1 [facility] [place] [address] * (ABNORMAL) Iron profile w/ IBC (08/02/2022 4:22 AM CDT) Iron 47(L) 50 - 150 mcg/dL [facility] TIBC 208(L) 250 - 400 mcg/dL [facility] ([place]) Transferrin saturation 23 20 - 50 % [facility] ([place]) Blood 08/02/2022 4:22 AM CDT 08/02/2022 8:43 AM CDT us Janice Corea MD LAB BLOOD ORDERABLES Final Resu lt Performing Organization Address [facility]/ZIP Co de Phone Number [facility] ([place]) 1 [facility] [place] [address] * Phosphorus (08/02/2022 4:22 AM CDT) Phosphorus, pl 3.5 2.3 - 4.5 mg/dL [facility] ([place]) Blood 08/02/2022 4:22 AM CDT 08/02/2022 5:48 AM CDT us Steven Velez PRESS OFFBEARER LAB BLOOD ORDERABLE S Final Result [facility] ([place]) 1 [facility] [place] [address] * Magnesium (08/02/2022 4:22 AM CDT) Magnesium 1.8 1.4 - 2.5 mg/dL [facility] ([place]) Blood 08/02/2022 4:22 AM CDT 08/02/2022 5:48 AM CDT Steven Velez PRESS OFFBEARER LAB BLOOD ORDERABLE S Final Result Performing Organization Address City/[facility] Co de Phone Number [facility] ([place]) 1 [facility] [place] [address] * (ABNORMAL) CBC without differential (08/02/2022 4:22 AM CDT) Pathologist [facility] WBC 6.7 3.8 - 9.9 K/cumm [facility] ([place]) Hgb 8.8(L) 13.0 - 17.5 g/dL [facility] ([place]) Hct 26.2(L) 38.9 - 50.3 % [facility] ([place]) Plt 125(L) 150 - 400 K/cumm [facility] ([place]) MPV 10.5 9.1 - 12.3 fL [facility] ([place]) RBC 2.69(L) 4.30 - 5.80 M/cumm [facility] ([place]) MCV 97.4(H) 81.3 - 96.4 fL [facility] ([place]) MCH 32.7 27.1 - 33.3 pg [facility] ([place]) MCHC 33.6 32.3 - 35.7 g/dL [facility] ([place]) RDW CV 13.5 11.1 - 14.9 % [facility] ([place]) RDW SD 47.6 35.7 - 48.1 fL [facility] ([place]) NRBC abs 0.00 0.00 - 0.01 K/cumm [facility] ([place]) Blood 08/02/2022 4:22 AM CDT 08/02/2022 5:47 AM CDT Steven Velez PRESS OFFBEARER LAB BLOOD ORDERABLE S Final Result [facility] ([place]) 1 [facility] [place] [address] * Phosphorus (08/01/2022 3:09 AM CDT) [facility] Phosphorus, pl 4.0 2.3 - 4.5 mg/dL [facility] ([place]) Blood 08/01/2022 3:09 AM CDT 08/01/2022 4:17 AM CDT Steven Velez PRESS OFFBEARER LAB BLOOD ORDERABLE S Final Result Performing Organization Address City/[facility]/ZIP Co de Phone Number [facility] ([place]) [address] [place] [address] * Magnesium (08/01/2022 3:09 AM CDT) [facility] Magnesium 1.9 1.4 - 2.5 mg/dL [facility] ([place] Blood 08/01/2022 3:09 AM CDT 08/01/2022 4:17 AM CDT Steven Velez PRESS OFFBEARER LAB BLOOD ORDERABLE S Final Result Performing Organization Address City/[facility]/ZIP Co de Phone Number [facility] ([place]) 1 [facility] [place] [address] * (ABNORMAL) CBC without differential (08/01/2022 3:09 AM CDT) [facility] WBC 7.2 3.8 - 9.9 K/cumm [facility] ([place] Hgb 9.1(L) 13.0 - 17.5 g/dL [facility] ([place]) Hct 27.5(L) 38.9 - 50.3 % [facility] ([place]) Plt 116(L) 150 - 400 K/cumm [facility] ([place]) MPV 10.8 9.1 - 12.3 fL [facility] ([place]) RBC 2.76(L) 4.30 - 5.80 M/cumm [facility] ([place]) MCV 99.6(H) 81.3 - 96.4 fL [facility] ([place]) MCH 33.0 27.1 - 33.3 pg [facility] ([place]) MCHC 33.1 32.3 - 35.7 g/dL [facility] ([place]) RDW CV 13.5 11.1 - 14.9 % [facility] ([place]) RDW SD 48.5(H) 35.7 - 48.1 fL [facility] ([place]) NRBC abs 0.00 0.00 - 0.01 K/cumm [facility] ([place]) Blood 08/01/2022 3:09 AM CDT 08/01/2022 4:15 AM CDT Steven Velez PRESS OFFBEARER LAB BLOOD ORDERABLE S Final Result Performing Organization Address City/State/[facility] Co de Phone Number [facility] ([place]) 1 [facility] [place] [address] * CT Head WO Contrast (07/31/2022 11:49 AM CDT) Anatomical Region Laterality Modality Head and Neck N/A Computed Tomogra phy 07/31/2022 12:0 4 PM CDT Narrative 07/31/2022 12:11 PM CDT EXAM DESCRIPTION: ?? CT HEAD WO CONTRAST REASON FOR STUDY: ?? Traumatic brain injury (TBI), persistent deficits, AMS post fall ?? Generalized weakness ??Sudden onset of declining mental status ?? TECHNIQUE: Axial images acquired through the brain without intravenous contrast. ??Images stored on PACS. ?? Automated exposure control was used as a dose optimization technique for this examination. COMPARISON: ?? 07/29/2022 FINDINGS: BRAIN: ?? No hemorrhage, edema or mass effect. No recent infarct. ?Normal white matter. ? EXTRA-AXIAL SPACES: ?? No fluid collections. No masses. CALVARIUM: ?? No fracture. SINUSES/MASTOIDS: ?? No fluid or mucosal thickening. ORBITS: ?? No acute findings. ??0.4 cm density posterior to the lens region is unchanged from previous. ??Please correlate clinically. OTHER: ?? No other significant abnormality. IMPRESSION: No acute intracranial findings. THIS IS AN ELECTRONICALLY VERIFIED FINAL REPORT 07/31/2022 12:11 PM - Electronically signed by ??Ray Watkins M.D. RB: PRIMO D: ??07/31/2022 12:11 PM T: ??07/31/2022 12:11 PM Report ID: [id number] Reading Location: ??[id number] Procedure Note Ray Watkins MD - 07/31/2022 EXAM DESCRIPTION: CT HEAD WO CONTRAST REASON FOR STUDY: Traumatic brain injury (TBI), persistent deficits, AMS post fall Generalized weakness Sudden onset of declining mental status TECHNIQUE: Axial images acquired through the brain without intravenous contrast. Images stored on PACS. Automated exposure control was used asa dose optimization technique for this examination. COMPARISON: 07/29/2022 FINDINGS: BRAIN: No hemorrhage, edema or mass effect. No recent infarct. Normal white matter. EXTRA-AXIAL SPACES: No fluid collections. No masses. CALVARIUM: No fracture. SINUSES/MASTOIDS: No fluid or mucosal thickening. ORBITS: No acute findings. 0.4 cm density posterior to the lens regionis unchanged from previous. Please correlate clinically. OTHER: No other significant abnormality. IMPRESSION: No acute intracranial findings. THIS IS AN ELECTRONICALLY VERIFIED FINAL REPORT 07/31/2022 12:11 PM - Electronically signed by Ray Watkins M.D. RB: PRIMO Report ID: [id number] Reading Location: [id number] us Amanda Montez PRESS OFFBEARER IMG CT PROCEDURES Final Resu lt * eGFR (07/31/2022 2:54 AM CDT) eGFR 83 mL/min/1. 73 m2 [facility] ([place]) Comment: Interpretive Data Reference Interval Normal ?>/= 90 mL/min/1.73m2 Mildly decreased* ? 60 - 89 mL/min/1.73m2 Mildly to moderately decreased ?45 - 59 mL/min/1.73m2 Moderately to severely decreased ??30 - 44 mL/min/1.73m2 Severely decreased ?15 - 29 mL/min/1.73m2 Kidney Failure ?< 15 ??mL/min/1.73m2 *Relative to young adult level Estimated glomerular filtration rate is determined by the 2020 CKD-EPI equation recommended by the National Kidney Foundation (A Unifying Approach to GFR Estimation: Recommendations of the NKF-ASK Task Force on Reassessing the Inclusion of Race in Diagnosing Kidney Disease, JASN 2020). The CKD-EPI equation should not be used for patients with unstable renal function and has not been validated in children and those over 70. Current interpretive data was last reviewed 2021. Blood 07/31/2022 2:54 AM CDT 07/31/2022 4:20 AM CDT us Brii Beverly MD LAB BLOOD ORDERABL ES Final Result [facility] ([place]) [address] [facility] [place] [address] * Phosphorus (07/31/2022 2:54 AM CDT) Phosphorus, pl 3.7 2.3 - 4.5 mg/dL [facility] ([place]) Blood 07/31/2022 2:54 AM CDT 07/31/2022 4:20 AM CDT us Steven Velez NP LAB BLOOD ORDERABLE S Final Result [facility] ([place]) [address] [facility] [place] [address] * Magnesium (07/31/2022 2:54 AM CDT) Magnesium 2.2 1.4 - 2.5 mg/dL [facility] ([place]) Blood 07/31/2022 2:54 AM CDT 07/31/2022 4:20 AM CDT Steven Velez NP LAB BLOOD ORDERABLE S Final Result [facility] ([place]) [address] [facility] [place] [address] * (ABNORMAL) CBC without differential (07/31/2022 2:54 AM CDT) WBC 6.9 3.8 - 9.9 K/cumm [facility] ([place]) Hgb 9.5(L) 13.0 - 17.5 g/dL [facility] ([place]) Hct 28.1(L) 38.9 - 50.3 % [facility] ([place]) Plt 116(L) 150 - 400 K/cumm [facility] ([place]) MPV 10.6 9.1 - 12.3 fL [facility] ([place]) RBC 2.85(L) 4.30 - 5.80 M/cumm [facility] ([place]) MCV 98.6(H) 81.3 - 96.4 fL [facility] ([place]) MCH 33.3 27.1 - 33.3 pg [facility] ([place]) MCHC 33.8 32.3 - 35.7 g/dL [facility] ([place]) RDW CV 13.2 11.1 - 14.9 % [facility] ([place]) RDW SD 47.2 35.7 - 48.1 fL [facility] ([place]) NRBC abs 0.00 0.00 - 0.01 K/cumm [facility] ([place]) Blood 07/31/2022 2:54 AM CDT 07/31/2022 3:38 AM CDT us Steven Velez NP LAB BLOOD ORDERABLE S Final Result [facility] ([place]) 1 [facility] [place] [address] * Basic metabolic panel (07/31/2022 2:54 AM CDT) Sodium 136 135 - 145 mmol/L [facility] ([place]) Potassium, pl 3.8 3.3 - 4.9 mmol/L [facility] ([place]) Chloride 102 97 - 110 mmol/L [facility] ([place]) CO2 26 22 - 32 mmol/L [facility] ([place] Anion gap 9 2 - 15 mmol/L [facility] ([place]) BUN 17 8 - 25 mg/dL [facility] ([place]) Creatinine 0.97 0.80 - 1.30 mg/dL [facility] ([place]) Glucose 101 70 - 199 mg/dL [facility] ([place]) Comment: Interpretive Data Fasting glucose >/= 126 mg/dl is diagnostic for diabetes. ?? Fasting is defined as no caloric intake for at least 8 hours. Fasting glucose between 100 mg/dl to 125 mg/dl is diagnostic of prediabetes. In a patient with classic symptoms of hyperglycemia or hyperglycemic crisis, a random glucose >/= 200 mg/dl is diagnostic for diabetes. In the absence of unequivocal hyperglycemia, results should be confirmed by repeat testing. The classification and Diagnosis of Diabetes Diabetes Care 2021; 46: S19-S40. Current interpretive data was last revised 2022. Calcium 8.5 8.5 - 10.3 mg/dL [facility] ([place]) Blood 07/31/2022 2:54 AM CDT 07/31/2022 4:20 AM CDT us Brii Beverly MD LAB BLOOD ORDERABL ES Final Result [facility] ([place]) 1 [facility] Department [place] [address] * TRANSTHORACIC ECHO (TTE) LIMITED/FOLLOW UP WO DOPPLER/CF WO CONTRAST (07/30/2022 3:29 PM CDT) Anatomical Region Laterality Modality Ultrasound 07/30/2022 3:11 PM CDT Narrative 07/30/2022 3:38 PM CDT [address] [place] [address] Limited Echocardiogram Report Patient Name: JANIA GUAJARDO : 1950 Study Date: 07/30/2022 3:11:27 PM Gender: M Tech: Location: [id number] Ref.Provider: STEVEN VELEZ Height(Cm): 180 BSA: 1.85 Weight(Kg): 68.5 Quality: Adequate Procedures: Echocardiographic Report: Limited transthoracic echocardiogram with 2D and M-Mode. Indications: hx atrial septostomy with iatrogenic ASD July 2022, left atrial appendage occlusion device placement. Measurements: Findings: Atrial Septum: The atrial septum is not well visualized. Aorta: Normal aortic root. Left Ventricle: Mild concentric left ventricular hypertrophy. Normal left ventricular size. Normal global left ventricular systolic function. Normal left ventricular diastolic function. Ejection fraction is visually estimated at 70 %. Left Atrium: There is mild enlargement of left atrium. Right Ventricle: Normal right ventricular size. Normal right ventricular systolic function. Right Atrium: The right atrium is normal in size. Mitral Valve: Normal structure of the mitral valve. Pulmonic Valve: Pulmonic valve not well visualized. Tricuspid Valve: Normal structure of the tricuspid valve. Pericardium: Normal pericardium with no significant pericardial effusion. Conclusions: Mild concentric left ventricular hypertrophy. Normal left ventricular size. Normal global left ventricular systolic function. Normal left ventricular diastolic function. Ejection fraction is visually estimated at 70 %. Normal right ventricular size. Normal right ventricular systolic function. There is mild enlargement of left atrium. The right atrium is normal in size. Electronically Signed By: Stanford Norton 2022-07-30 15:38:36 CDT CC: CC: Procedure Note Stanford Norton MD - 07/30/[address] [place] [address] Limited Echocardiogram Report Patient Name: JANIA GUAJARDOPatient ID: [id number] : [id number] Date: 07/30/2022 3:11:27 PM Gender: MAccession #: [id number] Tech: JCLocation: [id number] Ref.Provider: Aretha VELEZight(Cm): 180 BSA: 1.85Weight(Kg): 68.5 Quality: Adequate Procedures: Echocardiographic Report: Limited transthoracic echocardiogram with 2D and M-Mode. Indications: hx atrial septostomy with iatrogenic ASD July 2022, left atrial appendageocclusion device placement. Measurements: Findings: Atrial Septum: The atrial septum is not well visualized. Aorta: Normal aortic root. Left Ventricle: Mild concentric left ventricular hypertrophy. Normal left ventricularsize. Normal global left ventricular systolic function. Normal left ventricular diastolicfunction. Ejection fraction is visually estimated at 70 %. Left Atrium: There is mild enlargement of left atrium. Right Ventricle: Normal right ventricular size. Normal right ventricular systolicfunction. Right Atrium: The right atrium is normal in size. Mitral Valve: Normal structure of the mitral valve. Pulmonic Valve: Pulmonic valve not well visualized. Tricuspid Valve: Normal structure of the tricuspid valve. Pericardium: Normal pericardium with no significant pericardial effusion. Conclusions: Mild concentric left ventricular hypertrophy. Normal left ventricularsize. Normal global left ventricular systolic function. Normal left ventricular diastolicfunction. Ejection fraction is visually estimated at 70 %. Normal right ventricular size. Normal right ventricular systolicfunction. There is mild enlargement of left atrium. The right atrium is normal in size. Electronically Signed By: Stanford Norton 2022-07-30 15:38:36 CDT CC: CC: Steven Velez NP CV ECHO PROCEDURES Final Result * CT Facial Bones WO Contrast (07/30/2022 11:48 AM CDT) Anatomical Region Laterality Modality Head and Neck N/A Computed Tomogra phy 07/30/2022 12:1 9 PM CDT Narrative 07/30/2022 12:42 PM CDT EXAM DESCRIPTION: ?? CT FACIAL BONES WO CONTRAST REASON FOR STUDY: ?? Facial fracture, follow up ?? Fell yesterday, known orbit fracture ?? TECHNIQUE: Noncontrast computed tomography images through the paranasal sinuses. ??Reconstructed MPR images reviewed. ??All images stored on PACS. Automated exposure control was used as a dose optimization technique for this examination. COMPARISON: ?? 07/29/2022 FINDINGS: BONES: ?? The slightly depressed fracture of the lateral wall of the right maxillary sinus is unchanged. ??Very small amount of subcutaneous emphysema is unchanged. SOFT TISSUES: ?? No abscess. ??No inflammatory changes. SINUSES: ?? A small amount of fluid and mucosal thickening in the right maxillary sinus is unchanged. NASAL CAVITY: ?? Midline nasal septum. ORBITS: ?? No significant abnormalities visualized. TMJ: ?? A large amount of patient motion simulates fractures of the mandible. ?? If a mandibular fracture is suspected clinically, CT of the mandible is recommended MASTOIDS: ?? Well-aerated. ??IACs symmetric, grossly normal. BRAIN: ?? Limited view. No acute findings. OTHER: ?? No other significant finding. IMPRESSION: Slightly depressed fracture of the lateral wall of the right maxillary sinus, unchanged. Large amount of patient motion simulating fractures of the mandible. If a mandibular fracture is suspected clinically, CT of the mandible is recommended. THIS IS AN ELECTRONICALLY VERIFIED FINAL REPORT 07/30/2022 12:42 PM - Electronically signed by ??Anastacio Chakraborty M.D. JEFFREY: JEFFREY D: ??07/30/2022 12:42 PM T: ??07/30/2022 12:42 PM Report ID: [id number] Reading Location: ??[id number] Procedure Note Vicente Chakraborty MD - 07/30/2022 EXAM DESCRIPTION: CT FACIAL BONES WO CONTRAST REASON FOR STUDY: Facial fracture, follow up Fell yesterday, known orbit fracture TECHNIQUE: Noncontrast computed tomography images through the paranasal sinuses. Reconstructed MPR images reviewed. All images stored on PACS. Automated exposure control was used as a dose optimization technique forthis examination. COMPARISON: 07/29/2022 FINDINGS: BONES: The slightly depressed fracture of the lateral wall of the right maxillary sinus is unchanged. Very small amount of subcutaneous emphysemais unchanged. SOFT TISSUES: No abscess. No inflammatory changes. SINUSES: A small amount of fluid and mucosal thickening in the right maxillary sinus is unchanged. NASAL CAVITY: Midline nasal septum. ORBITS: No significant abnormalities visualized. TMJ: A large amount of patient motion simulates fractures of themandible. If a mandibular fracture is suspected clinically, CT of the mandible is recommended MASTOIDS: Well-aerated. IACs symmetric, grossly normal. BRAIN: Limited view. No acute findings. OTHER: No other significant finding. IMPRESSION: Slightly depressed fracture of the lateral wall of the right maxillarysinus, unchanged. Large amount of patient motion simulating fractures of the mandible. If a mandibular fracture is suspected clinically, CT of the mandible isrecommended. THIS IS AN ELECTRONICALLY VERIFIED FINAL REPORT 07/30/2022 12:42 PM - Electronically signed by Anastacio Chakraborty M.D. JEFFREY: JEFFREY Report ID: [id number] Reading Location: [place] [address] Steven Velez PRESS OFFBEARER IMG CT PROCEDURES F inal Result * CT Head WO Contrast (07/29/2022 9:36 PM CDT) Anatomical Region Laterality Modality Head and Neck N/A Computed Tomogra phy 07/29/2022 9:37 PM CDT Narrative 07/29/2022 9:46 PM CDT EXAM DESCRIPTION: ?? CT HEAD WO CONTRAST REASON FOR STUDY: ?? Head trauma, minor (Age => 66y) ?? Pt arrived from senior care after a fall today. Unknown if pt hit head. Pt poor historian and confused. Prior fall one week ago. ??Hx of HTN, TIA ?? TECHNIQUE: Axial images acquired through the brain without intravenous contrast. ??Images stored on PACS. ?? Automated exposure control was used as a dose optimization technique for this examination. COMPARISON: ?? 10/07/2021 FINDINGS: BRAIN: ?? No hemorrhage, edema or mass effect. No recent infarct. ? Nonspecific periventricular and subcortical white matter hypoattenuation which can be seen as sequela of chronic small vessel ischemic disease. ??There is intraoperative appropriate cerebral volume loss with ex vacuo dilatation of the ventricular system, not substantially changed. ??No acute intraventricular hemorrhage. ??Basal cisterns are patent. ? EXTRA-AXIAL SPACES: ?? No fluid collections. No masses. CALVARIUM: ?? No acute calvarial fracture. SINUSES/MASTOIDS: There is an acute comminuted and mildly displaced fracture of the lateral wall of the right maxillary sinus possibly extending to the posterior wall right maxillary sinus with locules of gas extending adjacent to right lateral orbital wall. ??There is a subtle cortical step-off along the lateral right orbital wall likely reflective of an acute minimally displaced fracture. ??There is mucosal thickening of the right maxillary sinus with superimposed small volume hemorrhage. ??Mild mucosal thickening of the ethmoid air cells. ??Otherwise, ??no fluid or mucosal thickening. ORBITS: ?? No significant abnormality. There is mild right edna-maxillary facial contusion. IMPRESSION: 1. No acute intracranial findings. 2. Acute comminuted and mildly displaced fracture of the lateral wall right maxillary sinus possibly extending to the posterior wall. Subtle cortical step-off along the lateral right orbital wall likely reflective of an acute minimally displaced fracture. 3. Mild right edna-maxillary facial contusion. THIS IS AN ELECTRONICALLY VERIFIED FINAL REPORT 07/29/2022 9:46 PM - Electronically signed by ??Destiny Mullen M.D. AT: AT D: ??07/29/2022 9:46 PM T: ??07/29/2022 9:46 PM Report ID: [id number] Reading Location: ??[id number] Procedure Note Destiny Mullen MD - 07/29/2022 EXAM DESCRIPTION: CT HEAD WO CONTRAST REASON FOR STUDY: Head trauma, minor (Age => 66y) Pt arrived from senior care after a fall today. Unknown if pt hit head.Pt poor historian and confused. Prior fall one week ago. Hx of HTN, TIA TECHNIQUE: Axial images acquired through the brain without intravenous contrast. Images stored on PACS. Automated exposure control was used asa dose optimization technique for this examination. COMPARISON: 10/07/2021 FINDINGS: BRAIN: No hemorrhage, edema or mass effect. No recent infarct. Nonspecific periventricular and subcortical white matter hypoattenuationwhich can be seen as sequela of chronic small vessel ischemic disease. There is intraoperative appropriate cerebral volume loss with ex vacuo dilatationof the ventricular system, not substantially changed. No acuteintraventricular hemorrhage. Basal cisterns are patent. EXTRA-AXIAL SPACES: No fluid collections. No masses. CALVARIUM: No acute calvarial fracture. SINUSES/MASTOIDS: There is an acute comminuted and mildly displacedfracture of the lateral wall of the right maxillary sinus possibly extending to the posterior wall right maxillary sinus with locules of gas extendingadjacent to right lateral orbital wall. There is a subtle cortical step-off along the lateral right orbital wall likely reflective of an acute minimallydisplaced fracture. There is mucosal thickening of the right maxillary sinus with superimposed small volume hemorrhage. Mild mucosal thickening of theethmoid air cells. Otherwise, no fluid or mucosal thickening. ORBITS: No significant abnormality. There is mild right edna-maxillary facial contusion. IMPRESSION: 1. No acute intracranial findings. 2. Acute comminuted and mildly displaced fracture of the lateral wallright maxillary sinus possibly extending to the posterior wall. Subtle cortical step-off along the lateral right orbital wall likely reflective of anacute minimally displaced fracture. 3. Mild right edan-maxillary facial contusion. THIS IS AN ELECTRONICALLY VERIFIED FINAL REPORT 07/29/2022 9:46 PM - Electronically signed by Destiny Mullen M.D. AT: AT Report ID: [id number] Reading Location: [id number] Byron Torres MD IMG CT PROCEDURES F inal Result * XR Shoulder Right 2 or More Views (07/29/2022 9:03 PM CDT) Anatomical Region Laterality Modality Upper Extremities, Shoulder Right Comp uted Radiography 07/29/2022 10:1 4 PM CDT Narrative 07/29/2022 10:17 PM CDT EXAM DESCRIPTION: ?? XR SHOULDER RIGHT 2 OR MORE VIEWS REASON FOR STUDY: ?? known fx, ?prox hum, c/f fx ?? Pt presents to ED s/p FALL AT RETIREMENT ALERT TO SELF ONLY STAFF STATES SECOND FALL THIS WEEK ?? Patient is a 72-year-old man with a history of dementia, hypertension, hyperlipidemia, heart failure with preserved ejection fraction, and atrial fibrillation status post Watchman 07/17 now off anticoagulation who presents with recurrent falls. ?Apparently fell last night. ??Seen at [facility] and diagnosed with question proximal humerus fracture on right. ??Subsequently fell and was seen there again. ??Had yet another fall tonight prompting transfer here. ??Patient denies any current complaints ?? but is unable to provide additional history secondary to dementia. ?? TECHNIQUE: ?Internal and external rotation ??views of the right shoulder were obtained. COMPARISON: ?? None FINDINGS: BONES/JOINTS: ?? There is an impacted fracture through the surgical neck of the proximal right humerus. ?Degenerative narrowing of the right glenohumeral joint. ??There is osteophytic spurring about the right acromioclavicular joint. SOFT TISSUES: ?? Unremarkable. VISUALIZED RIBS AND LUNG: ?? No significant finding. OTHER: ?? No significant finding. IMPRESSION: Impacted fracture through the surgical neck of the proximal right humerus. THIS IS AN ELECTRONICALLY VERIFIED FINAL REPORT 07/29/2022 10:17 PM - Electronically signed by ??Bryson Owen M.D. KT: KT D: ??07/29/2022 10:17 PM T: ??07/29/2022 10:17 PM Report ID: [id number] Reading Location: ??[id number] Procedure Note Bryson Owen MD - 07/29/2022 EXAM DESCRIPTION: XR SHOULDER RIGHT 2 OR MORE VIEWS REASON FOR STUDY: known fx, ?prox hum, c/f fx Pt presents to ED s/p FALL AT RETIREMENT ALERT TO SELF ONLY STAFF STATES SECOND FALL THIS WEEK Patient is a 72-year-old man with a history of dementia, hypertension, hyperlipidemia, heart failure with preservedejection fraction, and atrial fibrillation status post Watchman 07/17 now off anticoagulation who presents with recurrent falls. Apparently fell last night. Seen at [facility] and diagnosed with question proximal humerus fracture on right. Subsequently fell and was seen there again. Had yet another fall tonight prompting transfer here. Patient denies any current complaints but is unable to provide additional history secondary to dementia. TECHNIQUE: Internal and external rotation views of the right shoulderwere obtained. COMPARISON: None FINDINGS: BONES/JOINTS: There is an impacted fracture through the surgical neck ofthe proximal right humerus. Degenerative narrowing of the rightglenohumeral joint. There is osteophytic spurring about the right acromioclavicularjoint. SOFT TISSUES: Unremarkable. VISUALIZED RIBS AND LUNG: No significant finding. OTHER: No significant finding. IMPRESSION: Impacted fracture through the surgical neck of the proximal righthumerus. THIS IS AN ELECTRONICALLY VERIFIED FINAL REPORT 07/29/2022 10:17 PM - Electronically signed by Bryson Owen M.D. KT: SOHAIL Report ID: [id number] Reading Location: [id number] us Byron Torres MD IMG XR PROCEDURES F inal Result * XR Chest 1 View (07/29/2022 9:03 PM CDT) Anatomical Region Laterality Modality Body, Chest N/A Computed Radiogr aphy 07/29/2022 10:1 7 PM CDT Narrative 07/29/2022 10:18 PM CDT EXAM DESCRIPTION: ?? XR CHEST 1 VIEW REASON FOR STUDY: ?? general weakness, c/f pna ?? Pt presents to ED s/p FALL AT RETIREMENT ALERT TO SELF ONLY STAFF STATES SECOND FALL THIS WEEK ?? Patient is a 72-year-old man with a history of dementia, hypertension, hyperlipidemia, heart failure with preserved ejection fraction, and atrial fibrillation status post Watchman 07/17 now off anticoagulation who presents with recurrent falls. ?Apparently fell last night. ??Seen at [facility] and diagnosed with question proximal humerus fracture on right. ??Subsequently fell and was seen there again. ??Had yet another fall tonight prompting transfer here. ??Patient denies any current complaints ?? but is unable to provide additional history secondary to dementia. ?? TECHNIQUE: ?? One ??radiographic view of the chest acquired. COMPARISON: ?? None FINDINGS: LUNGS/PLEURA: ?? No focal consolidation or pneumothorax. No pleural effusion. ?? Elevation right hemidiaphragm with atelectasis at the right lung base. HEART/MEDIASTINUM: ?? Heart size is normal. Normal mediastinal and hilar contours. HARDWARE/LINES/TUBES: ?? None. BONES: ?? Impacted fracture of the proximal right humerus. OTHER: ?? No other significant finding. IMPRESSION: Impacted fracture of the proximal right humerus. THIS IS AN ELECTRONICALLY VERIFIED FINAL REPORT 07/29/2022 10:18 PM - Electronically signed by ??Bryson Owen M.D. KT: SOHAIL D: ??07/29/2022 10:18 PM T: ??07/29/2022 10:18 PM Report ID: [id number] Reading Location: ??[id number] Procedure Note Bryson Owen MD - 07/29/2022 EXAM DESCRIPTION: XR CHEST 1 VIEW REASON FOR STUDY: general weakness, c/f pna Pt presents to ED s/p FALL AT RETIREMENT ALERT TO SELF ONLY STAFF STATES SECOND FALL THIS WEEK Patient is a 72-year-old man with a history of dementia, hypertension, hyperlipidemia, heart failure with preservedejection fraction, and atrial fibrillation status post Watchman 07/17 now off anticoagulation who presents with recurrent falls. Apparently fell last night. Seen at [facility] and diagnosed with question proximal humerus fracture on right. Subsequently fell and was seen there again. Had yet another fall tonight prompting transfer here. Patient denies any current complaints but is unable to provide additional history secondary to dementia. TECHNIQUE: One radiographic view of the chest acquired. COMPARISON: None FINDINGS: LUNGS/PLEURA: No focal consolidation or pneumothorax. No pleuraleffusion. Elevation right hemidiaphragm with atelectasis at the right lung base. HEART/MEDIASTINUM: Heart size is normal. Normal mediastinal and hilar contours. HARDWARE/LINES/TUBES: None. BONES: Impacted fracture of the proximal right humerus. OTHER: No other significant finding. IMPRESSION: Impacted fracture of the proximal right humerus. THIS IS AN ELECTRONICALLY VERIFIED FINAL REPORT 07/29/2022 10:18 PM - Electronically signed by Bryson Owen M.D. KT: SOHAIL Report ID: [id number] Reading Location: [id number] us Byron Torres MD IMG XR PROCEDURES F inal Result * eGFR (07/29/2022 8:28 PM CDT) Pathologist [facility] eGFR 99 mL/min/1. 73 m2 [facility] ([place]) Comment: Interpretive Data Reference Interval Normal ?>/= 90 mL/min/1.73m2 Mildly decreased* ? 60 - 89 mL/min/1.73m2 Mildly to moderately decreased ?45 - 59 mL/min/1.73m2 Moderately to severely decreased ??30 - 44 mL/min/1.73m2 Severely decreased ?15 - 29 mL/min/1.73m2 Kidney Failure ?< 15 ??mL/min/1.73m2 *Relative to young adult level Estimated glomerular filtration rate is determined by the 2020 CKD-EPI equation recommended by the National Kid[employer] (A Unifying Approach to GFR Estimation: Recommendations of the NKF-ASK Task Force on Reassessing the Inclusion of Race in Diagnosing Kidney Disease, JASN 2020). The CKD-EPI equation should not be used for patients with unstable renal function and has not been validated in children and those over 70. Current interpretive data was last reviewed 2021. Blood 07/29/2022 8:28 PM CDT 07/29/2022 8:42 PM CDT us Byron Torres MD LAB BLOOD ORDERABLE S Final Result [facility] ([place]) 1 [facility] Department of Laboratories [place], [place] [id number] * Differential, auto (07/29/2022 8:28 PM CDT) Pathologist [facility] Neutrophil abs 6.4 1.7 - 6.5 K/cumm [facility] ([place]) Imm gran abs 0.0 0.0 - 0.1 K/cumm [facility] ([place]) Lymphocyte abs 1.1 0.8 - 3.3 K/cumm [facility] ([place]) Monocyte abs 0.6 0.2 - 0.8 K/cumm [facility] ([place]) Eosinophil abs 0.1 0.0 - 0.5 K/cumm [facility] ([place]) Basophil abs 0.0 0.0 - 0.1 K/cumm [facility] ([place]) Neutrophil pct 77.9 % [facility] ([place]) Comment: Interpretive Data Percent cell count reference ranges are not reported, since discordance with absolute values may lead to misinterpretation of CBC data. Current Interpretive Data was last revised on 2017. Imm gran pct 0.4 % [facility] ([place]) Comment: Interpretive Data Percent cell count reference ranges are not reported, since discordance with absolute values may lead to misinterpretation of CBC data. Current Interpretive Data was last revised on 2017. Lymphocyte pct 13.2 % [facility] ([place]) Comment: Interpretive Data Percent cell count reference ranges are not reported, since discordance with absolute values may lead to misinterpretation of CBC data. Current Interpretive Data was last revised on 2017. Monocyte pct 7.6 % [facility] ([place]) Comment: Interpretive Data Percent cell count reference ranges are not reported, since discordance with absolute values may lead to misinterpretation of CBC data. Current Interpretive Data was last revised on 2017. Eosinophil pct 0.7 % [facility] ([place]) Comment: Interpretive Data Percent cell count reference ranges are not reported, since discordance with absolute values may lead to misinterpretation of CBC data. Current Interpretive Data was last revised on 2017. Basophil pct 0.2 % [facility] ([place]) Comment: Interpretive Data Percent cell count reference ranges are not reported, since discordance with absolute values may lead to misinterpretation of CBC data. Current Interpretive Data was last revised on 2017. Blood 07/29/2022 8:28 PM CDT 07/29/2022 8:42 PM CDT us Byron Torres MD LAB BLOOD ORDERABLE S Final Result [facility] ([place]) 1 [facility] [place] [address] * Creatine kinase (CK), total (07/29/2022 8:28 PM CDT) CK 47 40 - 300 Units/L [facility] ([place]) Blood 07/29/2022 8:28 PM CDT 07/29/2022 8:42 PM CDT Byron Torres MD LAB BLOOD ORDERABLE S Final Result Performing Organization Address [facility] Co de Phone Number [facility] ([place]) [facility] [place] [address] * Urinalysis reflex to microscopic and culture Urine (07/29/2022 8:28 PM CDT) Color, ur Yellow Yellow [facility] ([place]) Clarity, ur Clear Clear [facility] ([place]) Specific gravity, ur 1.019 1.003 - 1.030 [facility] ([place]) pH, urine 6.5 [facility] ([place]) Protein, ur ql Negative Negative [facility] ([place]) Glucose, ur ql Negative Negative [facility] ([place]) Ketones, ur Negative Negative [facility] ([place]) Bilirubin, ur Negative Negative [facility] ([place]) Blood, ur Negative Negative [facility] ([place]) Urobilinogen, ur <2.0 <2.0 mg/dL [facility] ([place]) Nitrite, ur Negative Negative [facility] ([place]) Leukocyte esterase, ur Negative Negative [facility] ([place]) UA reflex comment Reflex conditions for microscopic UA and culture not met. [facility] ([place]) Urine 07/29/2022 8:28 PM CDT 07/29/2022 8:41 PM CDT Narrative [facility] ([place]) - 07/29/2022 8:45 PM CDT ?? Urine pH is affected by diet, medications, systemic acid-base disturbances, and renal tubular function. ??pH may affect urinary stone formation. ??For example, urine pH below 6.0 may help reduce the tendency for calcium phosphate stones and pH greater than 6.0 may reduce the tendency for uric acid stone formation. Source: [facility] [place]. Last revised 04-18-2017 Byron Torres MD LAB MICROBIOLOGY - GENERAL ORDERABLES Final Result Performing Organization Address City/[facility]/ZIP Co de Phone Number DAKSHA MCNEILL (LINDA) 1 [facility] [place] [address] * Magnesium (07/29/2022 8:28 PM CDT) Magnesium 1.8 1.4 - 2.5 mg/dL [facility] ([place]) Blood 07/29/2022 8:28 PM CDT 07/29/2022 8:42 PM CDT us Byron Torres MD LAB BLOOD ORDERABLE S Final Result Performing Organization Address City/[facility] Co de Phone Number DAKSHA MCNEILL ([place]) 1 [facility] [place] [address] * (ABNORMAL) Comprehensive metabolic panel (07/29/2022 8:28 PM CDT) Sodium 140 135 - 145 mmol/L [facility] ([place]) Potassium, pl 3.7 3.3 - 4.9 mmol/L [facility] ([place]) Chloride 104 97 - 110 mmol/L [facility] ([place]) CO2 26 22 - 32 mmol/L [facility] ([place]) Anion gap 10 2 - 15 mmol/L [facility] ([place]) BUN 15 8 - 25 mg/dL [facility] ([place]) Creatinine 0.69(L) 0.80 - 1.30 mg/dL [facility] ([place]) Glucose 150 70 - 199 mg/dL [facility] ([place]) Comment: Interpretive Data Fasting glucose >/= 126 mg/dl is diagnostic for diabetes. ?? Fasting is defined as no caloric intake for at least 8 hours. Fasting glucose between 100 mg/dl to 125 mg/dl is diagnostic of prediabetes. In a patient with classic symptoms of hyperglycemia or hyperglycemic crisis, a random glucose >/= 200 mg/dl is diagnostic for diabetes. In the absence of unequivocal hyperglycemia, results should be confirmed by repeat testing. The classification and Diagnosis of Diabetes Diabetes Care 2021; 46: S19-S40. Current interpretive data was last revised 2022. Calcium 8.7 8.5 - 10.3 mg/dL [facility] ([place]) Bilirubin, total 0.6 0.1 - 1.2 mg/dL [facility] ([place]) Protein, pl 5.8(L) 6.5 - 8.5 g/dL [facility] ([place]) Albumin 3.4(L) 3.5 - 5.0 g/dL [facility] ([place]) Alk phos 110 40 - 130 Units/L [facility] ([place]) ALT 55 7 - 55 Units/L [facility] ([place]) AST 39 10 - 50 Units/L [facility] ([place]) Blood 07/29/2022 8:28 PM CDT 07/29/2022 8:42 PM CDT us Byron Torres MD LAB BLOOD ORDERABLE S Final Result [facility] ([place]) 1 [facility] [place] [address] * (ABNORMAL) CBC with auto differential (07/29/2022 8:28 PM CDT) WBC 8.3 3.8 - 9.9 K/cumm [facility] ([place]) Hgb 10.8(L) 13.0 - 17.5 g/dL [facility] ([place]) Hct 31.9(L) 38.9 - 50.3 % [facility] ([place]) Plt 163 150 - 400 K/cumm [facility] ([place]) MPV 11.4 9.1 - 12.3 fL [facility] ([place]) RBC 3.31(L) 4.30 - 5.80 M/cumm [facility] ([place]) MCV 96.4 81.3 - 96.4 fL [facility] ([place]) MCH 32.6 27.1 - 33.3 pg [facility] ([place]) MCHC 33.9 32.3 - 35.7 g/dL [facility] ([place]) RDW CV 13.3 11.1 - 14.9 % [facility] ([place]) RDW SD 47.8 35.7 - 48.1 fL [facility] ([place]) NRBC abs 0.00 0.00 - 0.01 K/cumm [facility] ([place]) Blood 07/29/2022 8:28 PM CDT 07/29/2022 8:42 PM CDT us Byron Torres MD LAB BLOOD ORDERABLE S Final Result Performing Organization Address [facility] de Phone Number DAKSHA MCNEILL ([place]) 1 [facility] [place] [address] * ECG 12 lead (07/29/2022 8:21 PM CDT) 07/29/2022 8:21 PM CDT Narrative [facility] - 07/30/2022 8:44 AM CDT Vent Rate: 129 bpm RR Interval: 464 msec [place] Interval: 0 msec QRS Duration: 78 msec QT Interval: 315 msec QTC Interval: 391 msec P-R-T [place]: 0 - 24 - -29 degrees ATRIAL FIBRILLATION WITH RAPID VENTRICULAR RESPONSE WITH ABERRANT CONDUCTION OR VENTRICULAR PREMATURE COMPLEXES LOW QRS VOLTAGE IN PRECORDIAL LEADS ??[QRS DEFLECTION < 1.0 mV IN CHEST LEADS] SEPTAL MYOCARDIAL INFARCTION , OF INDETERMINATE AGE [40+ ms Q WAVE IN V1/V2] ABNORMAL ECG Compared to prior EKG heart rate increased Electronically Signed By: Stanford Norton us Byron Torres MD ECG ORDERABLES Fin al Result Performing Organization Address [facility] Co de Phone Number [facility] [place] [facility] documented in this encounter Visit Diagnoses Diagnosis Frequent falls- Primary Frequent falls Other closed nondisplaced fracture of proximal end of right humerus, initial encounter Closed fracture of facial bone, unspecified facial bone, initial encounter (HCC) Atrial fibrillation with RVR (CMS/HCC) (HCC) Atrial fibrillation, unspecified type (HCC) Closed 3-part fracture of proximal humerus, right, initial encounter Closed 3-part fracture of proximal humerus, right, initial encounter documented in this encounter Admitting Diagnoses Diagnosis Frequent falls documented in this encounter Administered Medications Inactive Administered Medications - up to 3 most recent administrations Medication Order MAR Action Action Date Dose Rate Site acetaminophen (TYLENOL) tablet 1,000 mg 1,000 mg, oral, Every 6 hours PRN, 1st line for pain, Starting on Sat07/29/22 at 2223 Given 08/03/2022 8:32 AM CDT 1,000 mg Given 08/02/2022 8:50 PM CDT 1,000 mg Given 08/01/2022 8:33 PM CDT 1,000 mg amLODIPine (NORVASC) tablet 5 mg 5 mg, oral, Daily, First dose on Sat07/30/22 at 0900 Given 08/03/2022 8:33 AM CDT 5 mg Given 08/02/2022 9:58 AM CDT 5 mg Given 08/01/2022 9:20 AM CDT 5 mg aspirin enteric coated tablet 81 mg 81 mg, oral, Daily, First dose on Sat07/30/22 at 0900, Do not crush, chew, cut, dissolve, open or otherwise manipulate tablet/capsule. Given 08/03/2022 8:32 AM CDT 81 mg Given 08/02/2022 9:58 AM CDT 81 mg Given 08/01/2022 9:21 AM CDT 81 mg atorvastatin (LIPITOR) tablet 10 mg 10 mg, oral, Nightly, First dose on Sat07/30/22 at 2100 Given 08/02/2022 8:50 PM CDT 10 mg Given 08/01/2022 8:33 PM CDT 10 mg Given 07/31/2022 9:21 PM CDT 10 mg budesonide-formoteroL (SYMBICORT) 80-4.5 mcg/actuation inhaler 2 puff 2 puff, inhalation, 2 times daily (respite provider), First dose on Sat07/30/22 at 0900, I /authorizing provider attest that the patient meets the approved [facility] Use Criteria: Yes Given 08/03/2022 8:58 AM CDT 2 puffs Given 08/02/2022 7:47 PM CDT 2 puffs Given 08/02/2022 8:15 AM CDT 2 puffs clopidogreL (PLAVIX) tablet 75 mg 75 mg, oral, Daily, First dose on Sat07/30/22 at 1026 Given 08/03/2022 8:33 AM CDT 75 mg Given 08/02/2022 9:58 AM CDT 75 mg Given 08/01/2022 9:20 AM CDT 75 mg dilTIAZem (CARDIZEM) injection 15 mg 15 mg, intravenous, Administer over 2 Minutes, Once, On 07/29/22 at 2145, For 1 dose, Refrigerate Given 07/29/2022 9:52 PM CDT 15 mg dilTIAZem CD/XR/XT (CARDIZEM CD,DILACOR XR) 24 hour capsule 120 mg 120 mg, oral, Once, On Sat07/29/22 at 2215, For 1 dose, Do not crush, chew, cut, dissolve, open or otherwise manipulate tablet/capsule. Given 07/29/2022 10:28 PM CDT 120 mg enoxaparin (LOVENOX) syringe 40 mg 40 mg, subcutaneous, Daily (for enoxaparin), First dose on Sat07/29/22 at 2224, Indications: Deep Vein Thrombosis PreventionIndications:Deep Vein Thrombosis Prevention Given 08/02/2022 8:51 PM CDT 40 mg Left Lower Abdomen Given 08/01/2022 8:34 PM CDT 40 mg Le ft Lower Abdomen Given 07/31/2022 9:22 PM CDT 40 mg Le ft Lower Abdomen losartan (COZAAR) tablet 100 mg 100 mg, oral, Daily, First dose on Sat07/30/22 at 0900 Given 08/03/2022 8:34 AM CDT 100 mg Given 08/02/2022 9:58 AM CDT 100 mg Given 08/01/2022 9:20 AM CDT 100 mg magnesium sulfate 2 g/50 mL in water (premix) 2 g 2 g (2,000 mg), intravenous, Administer over 60 Minutes, Once, On Sat07/29/22 at 8, For 1 dose New Bag 07/29/2022 8:53 PM CDT 2 g magnesium sulfate 2 g/50 mL in water (premix) 2 g 2 g, intravenous, Administer over 60 Minutes, Once, On Sat07/30/22 at 1005, For 1 dose New Bag 07/30/2022 10:19 AM CDT 2 g metoprolol tartrate (LOPRESSOR) immediate release tablet 100 mg 100 mg, oral, 2 times daily, First dose on Sat07/30/22 at 0900 Given 08/03/2022 8:33 AM CDT 100 mg Given 08/02/2022 8:50 PM CDT 100 mg Given 08/02/2022 9:58 AM CDT 100 mg ondansetron (ZOFRAN) injection 4 mg 4 mg, intravenous, Administer over 2 Minutes, Every 6 hours PRN, nausea, vomiting, if not tolerating PO, Starting on Sat07/30/22 at 0643, Indications: Nausea and VomitingIndications:Nausea and Vomiting ondansetron ODT (ZOFRAN-ODT) disintegrating tablet 4 mg 4 mg, oral, Every 6 hours PRN, nausea, vomiting, Starting on Sat07/30/22 at 0643, Indications: Nausea and VomitingIndications:Nausea and Vomiting pantoprazole DR (PROTONIX) extended release tablet 40 mg 40 mg, oral, Daily, First dose on Sat07/30/22 at 0900, Do not crush, chew, cut, dissolve, open or otherwise manipulate tablet/capsule., Indications: Treatment of Non-Bleeding Gastric DisorderIndications:Treatment of Non-Bleeding Gastric Disorder Given 08/03/2022 8:33 AM CDT 40 mg Given 08/02/2022 9:58 AM CDT 40 mg Given 08/01/2022 9:20 AM CDT 40 mg polyethylene glycol (MIRALAX) packet 17 g 17 g, oral, Daily, First dose on Sat07/30/22 at 0900, Indications: constipationIndications:constipation Given 08/03/2022 8:32 AM CDT 17 g Given 08/02/2022 9:57 AM CDT 17 g Given 08/01/2022 9:21 AM CDT 17 g potassium chloride (KLOR-CON) packet 60 mEq 60 mEq, oral, Once, On Sat07/29/22 at 2218, For 1 dose, Dissolve one packet in at least 120 mL of cold water or other beverage prior to administration. Given 07/29/2022 10:30 PM CDT 60 mEq ramelteon (ROZEREM) tablet 8 mg 8 mg, oral, Nightly, First dose on Sat07/29/22 at 2213 Given 07/29/2022 10:28 PM CDT 8 mg ramelteon (ROZEREM) tablet 8 mg 8 mg, oral, Nightly, First dose on Sat07/30/22 at 2100, Indications: Sleep-Onset InsomniaIndications:Sleep-Onset Insomnia Given 08/02/2022 8:51 PM CDT 8 m g Given 08/01/2022 8:33 PM CDT 8 mg Given 07/31/2022 9:21 PM CDT 8 mg senna-docusate (PERICOLACE) 8.6-50 mg per tablet 2 tablet 2 tablet, oral, 2 times daily, First dose on Sat07/30/22 at 0900 Given 08/03/2022 8:33 AM CDT 2 tablets Given 08/02/2022 9:58 AM CDT 2 tablets Given 08/01/2022 8:33 PM CDT 2 tablets sodium chloride (OCEAN) 0.65 % nasal spray 2 spray 2 spray, each nostril, Every 2 hours PRN, congestion, Starting on Sat07/30/22 at 0753 sodium chloride 0.9% flush 0.5-20 mL 0.5-20 mL, intra-catheter, Every 8 hours scheduled, First dose on Sat07/30/22 at 0644, Flush volume based on line type and size. Given 08/03/2022 6:14 AM CDT 10 mL Given 08/02/2022 9:02 PM CDT 10 mL Given 08/02/2022 5:33 PM CDT 10 mL terazosin (HYTRIN) capsule 10 mg 10 mg, oral, Nightly, First dose on Sat07/30/22 at 2100 Given 08/02/2022 8:50 PM CDT 10 mg Given 08/01/2022 8:33 PM CDT 10 mg Given 07/31/2022 9:21 PM CDT 10 mg traZODone (DESYREL) tablet 50 mg 50 mg, oral, Nightly, First dose on Sat07/30/22 at 2100 Given 08/02/2022 8:50 PM CDT 50 mg Given 08/01/2022 8:33 PM CDT 50 mg Given 07/31/2022 9:21 PM CDT 50 mg documented in this encounter Discontinued Medications Medication Sig Discontinue Reason Start Date End Da te clopidogreL (PLAVIX) 75 mg tablet Take 1 tablet (75 mg total) by mouth daily Therapy completed 07/17/2022 07/30/2022 thiamine (VITAMIN B1) 100 mg tabletIndications:[facility] Deficiency Take 100 mg by mouth every morning 07/30/2022 pravastatin (PRAVACHOL) 40 mg tablet Take 40 mg by mouth daily 07/30/2022 metoprolol (LOPRESSOR) 100 mg tabletIndications:Atria l fibrillation, unspecified type (HCC) Take 1 tablet (100 mg total) by mouth 2 (two) times a day 01/30/2021 08/03/2022 losartan (COZAAR) 50 mg tablet Take 1 tablet (50 mg total) by mouth daily Reorder 10/12/2021 08/03/2022 multivit,tx with iron,minerals (THERA-M ORAL) Take 1 tablet by mouth every morning Stop Taking at Discharge 08/03/2022 fluticasone furoate-vilanteroL (BREO ELLIPTA) 100-25 mcg/dose diskus inhaler Inhale 1 puff once daily Rinse mouth with water after use. Do not swallow. Stop Taking at Discharge 08/03/2022 QUEtiapine (SEROquel) 25 mg tablet Take 1 tablet (25 mg total) by mouth every 6 (six) hours as needed (agitation) Stop Taking at Discharge 10/27/2021 08/03/2022 documented as of this encounter Historical Medications * This list may reflect changes made after this encounter. fluticasone propion-salmetero L (ADVAIR DISKUS) 100-50 mcg/dose diskus inhaler Inhale 1 puff daily Rinse mouth with water after use. Do not swallow. added in this encounter Active and Recently Administered Medications Times are shown in CDT. Scheduled Medication Order 08/01/2022 08/02/2022 08/03/2022 amLODIPine (NORVASC) tablet 5 mg 5 mg, oral, Daily, First dose on Sat07/30/22 at 0900 0920 (Given - Provider: Gage López RN) 0958 (Given - Provider: Gage López RN) 0833 (Given - Provider: Gage López RN) aspirin enteric coated tablet 81 mg 81 mg, oral, Daily, First dose on Sat07/30/22 at 0900, Do not crush, chew, cut, dissolve, open or otherwise manipulate tablet/capsule. 0921 (Given - Provider: Gage López RN) 0958 (Given - Provider: Gage López RN) 0832 (Given - Provider: Gage López RN) atorvastatin (LIPITOR) tablet 10 mg 10 mg, oral, Nightly, First dose on Sat07/30/22 at 2100 2032 (Given - Provider: Elin Finney RN) 2049 (Given - Provider: Elin Finney RN) budesonide-formoteroL (SYMBICORT) 80-4.5 mcg/actuation inhaler 2 puff 2 puff, inhalation, 2 times daily (respite provider), First dose on Sat07/30/22 at 0900, I /authorizing provider attest that the patient meets the approved [facility] Use Criteria: Yes 1034 (Given - Provider: Nick Lewis, BUNNY)1927 (Given - Provider: Pallavi Kat, BUNNY) 0815 (Given - Provider: Nick Lewis, BUNNY)1947 (Given - Provider: Guillermina Bueno, BUNNY) 0858 (Given - Provider: Nick Lewis, BUNNY) clopidogreL (PLAVIX) tablet 75 mg 75 mg, oral, Daily, First dose on Sat07/30/22 at 1026 0920 (Given - Provider: Gage López RN) 0958 (Given - Provider: Gage López RN) 0833 (Given - Provider: Gage López RN) enoxaparin (LOVENOX) syringe 40 mg 40 mg, subcutaneous, Daily (for enoxaparin), First dose on Sat07/29/22 at 2224, Indications: Deep Vein Thrombosis Prevention 2033 (Given - Provider: Elin Finney RN) 2050 (Given - Provider: Elin Finney RN) losartan (COZAAR) tablet 100 mg 100 mg, oral, Daily, First dose on Sat07/30/22 at 0900 0920 (Given - Provider: Gage López RN) 0958 (Given - Provider: Gage López RN) 0834 (Given - Provider: Gage López RN) metoprolol tartrate (LOPRESSOR) immediate release tablet 100 mg 100 mg, oral, 2 times daily, First dose on Sat07/30/22 at 0900 0921 (Given - Provider: Gage López RN)2032 (Given - Provider: Elin Finney RN) 09 (Given - Provider: Gage López RN)2049 (Given - Provider: Elin Finney RN) 0833 (Given - Provider: Gage López RN) pantoprazole DR (PROTONIX) extended release tablet 40 mg 40 mg, oral, Daily, First dose on Sat07/30/22 at 0900, Do not crush, chew, cut, dissolve, open or otherwise manipulate tablet/capsule., Indications: Treatment of Non-Bleeding Gastric Disorder 919 (Given - Provider: Gage López RN) 957 (Given - Provider: Gage López RN) 0833 (Given - Provider: Gage López RN) polyethylene glycol (MIRALAX) packet 17 g 17 g, oral, Daily, First dose on Sat07/30/22 at 0900, Indications: constipation 920 (Given - Provider: Gage López RN) 0957 (Given - Provider: Gage López RN) 0832 (Given - Provider: Gage López RN) ramelteon (ROZEREM) tablet 8 mg 8 mg, oral, Nightly, First dose on Sat07/30/22 at 2100, Indications: Sleep-Onset Insomnia 2032 (Given - Provider: Elin Finney RN) 2050 (Given - Provider: Elin Finney RN) senna-docusate (PERICOLACE) 8.6-50 mg per tablet 2 tablet 2 tablet, oral, 2 times daily, First dose on Sat07/30/22 at 0900 0920 (Given - Provider: Gage López RN)2032 (Given - Provider: Elin Finney RN) 0958 (Given - Provider: Gage López RN)2099 (Not Given - Provider: Elin Finney RN - Reason: Other - Comment: Pt had several lg bowel movements) 0833 (Given - Provider: Gage López RN) sodium chloride 0.9% flush 0.5-20 mL 0.5-20 mL, intra-catheter, Every 8 hours scheduled, First dose on Sat07/30/22 at 0644, Flush volume based on line type and size. 0604 (Given - Provider: Elin Finney RN)1703 (Not Given - Provider: Gage López RN - Reason: Other)204 (Given - Provider: Elin Finney RN) 0608 (Given - Provider: Elin Finney RN)1733 (Given - Provider: Gage López RN)2102 (Given - Provider: Elin Finney RN) 0614 (Given - Provider: Elin Finney RN) terazosin (HYTRIN) capsule 10 mg 10 mg, oral, Nightly, First dose on Sat07/30/22 at 2099 2032 (Given - Provider: Elin Finney RN) 2049 (Given - Provider: Elin Finney RN) traZODone (DESYREL) tablet 50 mg 50 mg, oral, Nightly, First dose on Sat07/30/22 at 2099 2032 (Given - Provider: Elin Finney RN) 2049 (Given - Provider: Elin Finney RN) PRN Medication Order 08/01/2022 08/02/2022 08/03/2022 acetaminophen (TYLENOL) tablet 1,000 mg 1,000 mg, oral, Every 6 hours PRN, 1st line for pain, Starting on Sat07/29/22 at 2222 2032 (Given - Provider: Elin Finney RN) 2049 (Given - Provider: Elin Finney RN) 0832 (Given - Provider: Gage López RN) albuterol 2.5 mg /3 mL (0.083 %) nebulizer solution 2.5 mg 2.5 mg, nebulization, Every 6 hours PRN (respite provider), wheezing, Starting on Sat07/30/22 at 0643 Carrier Fluids for Secondary Infusion - 0.9% Sodium Chloride 30 mL, intravenous, As needed, For priming tubing and/or flushing, Starting on Sat07/30/22 at 0643, 0-250 ml/hr to flush line after IV infusions when no maintenance IV ordered. Infuse 30mL at the same rate as the secondary infusion. Run as primary IV, not intended for KVO. ondansetron (ZOFRAN) injection 4 mg(Linked Group 1) 4 mg, intravenous, Administer over 2 Minutes, Every 6 hours PRN, nausea, vomiting, if not tolerating PO, Starting on Sat07/30/22 at 0643, Indications: Nausea and Vomiting ondansetron ODT (ZOFRAN-ODT) disintegrating tablet 4 mg(Linked Group 1) 4 mg, oral, Every 6 hours PRN, nausea, vomiting, Starting on Sat07/30/22 at 0643, Indications: Nausea and Vomiting sodium chloride (OCEAN) 0.65 % nasal spray 2 spray 2 spray, each nostril, Every 2 hours PRN, congestion, Starting on Sat07/30/22 at 0753 sodium chloride 0.9% flush 0.5-20 mL 0.5-20 mL, intra-catheter, As needed, line care, Starting on Sat07/30/22 at 0643, Flush volume based on line type and size. Flush before and after each use. Linked Groups Order Group 1: ondansetron ODT (ZOFRAN-ODT) disintegrating tablet 4 mgJump to med 4 mg, oral, Every 6 hours PRN, nausea, vomiting, Starting on Sat07/30/22 at 0643, Indications: Nausea and Vomiting Or ondansetron (ZOFRAN) injection 4 mgJump to med 4 mg, intravenous, Administer over 2 Minutes, Every 6 hours PRN, nausea, vomiting, if not tolerating PO, Starting on Sat07/30/22 at 0643, Indications: Nausea and Vomiting documented in this encounter Orders Medications Ordered That Bimal ht Not Have Been Administered Count Last Ordered Date First Ordered Date albuterol 2.5 mg /3 mL (0.08 3 %) nebulizer solution 2.5 mg 1 07/30/2022 Carrier Fluids for Secondary Infusion - 0.9% Sodium Chloride 1 07/30/2022 clopidogreL (PLAVIX) tablet 75 mg 1 023 ondansetron (ZOFRAN) injection 4 mg 1 07/30 ondansetron ODT (ZOFRAN-ODT) disintegrating tablet 4 mg 1 07/30/2022 senna (SENOKOT) tablet 1 tablet 1 sodium chloride (OCEAN) 0.65 % nasal spray 2 spray 1 07/30/2022 sodium chloride 0.9% flush 0.5-20 mL 1 07/08 Diet Count Last Ordered Date First Orde red Date ADULT DISCHARGE DIET 1 08/03/2022 Nursing Count Last Ordered Date First Orde red Date DISCHARGE ACTIVITY 1 08/03/2022 DISCHARGE CALL PROVIDER 8 08/03/2022 DISCHARGE INSTRUCTIONS 1 08/03/2022 ED NURSING ORDER 1 07/30/2022 MAINTAIN IV ACCESS 1 07/30/[address] PLACE SEQUENTIAL COMPRESSION DEVICE 1 07/30 TELEMETRY MONITORING 1 07/30/2022 ACTIVITY 1 07/29/2022 BRACE APPLICATION 1 07/29/2022 NOTIFY PROVIDER (SPECIFY) 1 07/29/2022 STRAIGHT CATH 1 07/29/2022 WEIGH PATIENT 1 07/29/2022 Consult Count Last Ordered Date First Orde red Date IP CONSULT TO CARDIOLOGY 1 07/30/2022 IP CONSULT TO ENT 1 07/30/2022 IP CONSULT TO ORTHOPEDIC SURGERY 1 07/31/19 IP CONSULT TO SOCIAL WORK 1 07/30/2022 IV Count Last Ordered Date First Orde red Date INSERT PERIPHERAL IV 1 07/30/2022 Admission Count Last Ordered Date First Orde red Date ADMIT TO INPATIENT 1 07/29/2022 Discharge Count Last Ordered Date First Orde red Date DISCHARGE PATIENT 1 08/03/2022 CORE MEASURES Count Last Ordered Date First Ord ered Date REASON FOR NO VTE PROPHYLAXIS AT ADMISSION 1 07/30/2022 documented in this encounter Additional Health Concerns Infection Onset Date Last Indicated Resolved Time MDR gram neg/ESBL Comment:06/16/2021 IP Review - Pt with scrotal abscess, but is not actively draining (last documented draining on 06/14). Pt remains intubated so requires trach aspirate for isolation discontinuation. Provider notified. Amanda Walker RN 12/19/2019 12/19/2019 documented as of this encounter Care Teams Horse Trekking Guide Relationship Specialty Start Date End Date Abiodun Novak MD [address] [facility] [address] [place] [address] PCP - General Cardiology 06/13/22 05/09/23 Jean-Claude Crawford MD [address] [place] [address] Family Medicine 04/12/20 Jessie Delvalle MD [address] [facility] [address] [place] [address] Orthopedic Surgery 07/07/21 Sandip Barone MD [address] [facility] [address] [place] [address] Consulting Physician Neurosurgery 07/07/21 documented as of this encounter
--- OUTSIDE RECORDS SUMMARY | 2024-04-08 10:33 | XMS_ITS | Encounter Summary ---
Author Organization [facility] Healthcare Address [address] [place] [address] Care Team Providers Care Air Grinder Name Role Phone Jean-Claude Crawford MD Unavailable [phone] Jessie Delvalle MD Unavailable + Sandip Barone MD Unavailable [phone] Abiodnu Novak MD Primary Care Provider [phone] Reason for Visit * Auth/Cert (Routine) Specialty Diagnoses / Procedures Referred By Lei t Referred To Contact Diagnoses Atrial fibrillation, unspecified type (HCC) Atrial fibrillation, unspecified type (HCC) [I48.91] Procedures IL PERQ CLSR TCAT L ATR APNDGE W/ENDOCARDIAL IMPLNT IL ECHO CHOLO GUID TCAT ICAR/VESSEL STRUCTURAL INTVN PERC TINY CLOSE W/IMPLANT [id number] Referral ID Status Reason Start Date Expiration Date Visits Re quested Visits Authorized [id number] 1 1 Encounter Details Date Type Department Care Team (Latest Contact Info) Description 07/17/2022 7:38 AM CDT - 07/17/2022 1:59 PM CDT Hospital Encounter [facility] [address] [place] [phone] Pedro Luis Gomez MD [address] [facility] [address] [place] [address] Atrial fibrillation, unspecified type (HCC) Discharge Disposition: [...] often do you attend chur ch or mormon services? Never 10/06/2021 Do you belong to [...] place to sleep or slept in a longterm (including now)? 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 Gender Identity Not on file Sexual Orientation Not on file documented as of this encounter Last Filed Vital Signs Vital Sign Reading Time Taken Comments Blood Pressure 145/99 07/17/2022 1:41 PM CDT Pulse 92 07/17/2022 1:41 PM CDT Temperature 36 ??C (96.8 ??F) 07/17/2022 10:25 AM CDT Respiratory Rate 20 07/17/2022 11:56 AM CDT Oxygen Saturation 88% 07/17/2022 1:41 PM CDT Inhaled Oxygen Concentration - - Weight 83.6 kg (184 lb 4.9 oz) 07/17/2022 8:40 A M CDT Height 177.8 cm (5' 10 ) 07/17/2022 8:40 AM CDT Body Mass Index 26.44 07/17/2022 8:40 AM CDT documented in this encounter Discharge Instructions * Discharge Instructions* Vandana Greene - 07/17/2022 11:58 AM CDT Cardiac Laboratory [address] [place], [place] [address] [facility] Discharge Instructions---Angiogram MEDICATIONS [] Do not take Metformin or medications containing Metformin (for example: Glucophage, Glyburide orGlucovance) for the next 48 hours. Resume taking your medication on [] Home Medications Returned [x] Discharge Medication Reconciliation Reviewed [] Prescriptions sent home with patient and instructions given for usage [] ANTIBIOTICS What you Should Know Information provided and reviewed. [x] Your physician has prescribed Aspirin and an anti-platelet therapy medication such as Plavix, Brilinta, Effient. - These medications act as a blood thinner. Take the medications as your physician has prescribed; this will help prevent a blood clot from forming in your artery. - Do not stop taking these medications for any reason without discussing with your traffic signal supervisor maintenance first. - These medications may make you bruise or bleed easier than normal. PROCEDURE SITE CARE [x] You may shower in 24 hours. Remove the bandage prior to showering. [x] DO NOT submerge your incision site in water. This includes pools, tub baths, lakes, reynolds, ponds and hot tubs. You may shower only for the next 5 days (no baths). [x] Gently clean the procedure site using only soap and water. [x] DO NOT apply any kind of powder or lotion to the site [x] Make sure to dry the site thoroughly as wetness can lead to infection. DIET [x] Increase your intake of fluids (non-alcoholic). Drink 1/2 liter of fluids over the next 12 hours. [x] Resume home diet [] Special diet Instructed by Multiple Drill Operator ACTIVITY You have been given medications which helped make you comfortable during your procedure. The relaxing effects of these medications may continue for the rest of the day. For your safety: [x] Do not drive or operate hazardous machinery for the next 24 hours [x] Do not make important personal or business decision or sign legal documentation for the next 24hours. [x] Resume normal activity in 5 days. [x] No heavy pushing, pulling, or lifting more than 10 pounds for the next five days or until the procedure site has been healed. [x] Refrain from vigorous stair climbing or walking more than two blocks for the next five days. [x] No sexual activity for the next five days. SPECIAL INSTRUCTIONS After your procedure, it is normal to have mild soreness/tenderness at the procedure site. Some discoloration and /or bruising may occur at the puncture site region over the next 2-3 days Please notify your physician immediately if you develop any of the following: [x] Significant bleeding at the procedure site. If bleeding occurs, lie down, apply firm pressure to the site and call 911. [x] The leg on which your procedure was performed begins to swell, feel numb, weak or cold [x] Signs of infection which may include: - fever or chills - drainage from the procedure site - redness/warm to the touch at the procedure site [x] You start having signs of a heart attack which may include: - pain in your chest, arms, jaw or back -trouble catching your breath -feeling sick to your stomach -feeling sweaty FOLLOW UP CARE [] Call physician's office for appointment [] Appointment scheduled for with Additional Instructions: I understand and have received [...] times a day as needed (Increasing agitation) folic acid (FOLVITE) 1 mg tablet Take 1 tablet (1 mg total) by mouth daily ramelteon (ROZEREM) 8 mg tabletIndications :Sleep-Onset Insomnia Take 1 tablet (8 mg total) by mouth nightly 30 tablet 11 07/07/2021 senna (SENOKOT) 8.6 mg tablet Take 1 tablet by mouth 2 (two) times a day terazosin (HYTRIN) 10 mg capsule Take 1 capsule (10 mg total) by mouth daily clopidogreL (PLAVIX) 75 mg tablet Take 1 tablet (75 mg total) by mouth daily 30 tablet 11 07/17/2022 3 fluticasone furoate-vilantero L (BREO ELLIPTA) 100-25 mcg/dose diskus inhaler Inhale 1 puff once daily Rinse mouth with water after use. Do not swallow. 3 losartan (COZAAR) 50 mg tablet Take 1 tablet (50 mg total) by mouth daily 30 tablet 11 10/12/2021 3 metoprolol (LOPRESSOR) 100 mg tabletIndications :Atrial fibrillation, unspecified type (HCC) Take 1 tablet (100 mg total) by mouth 2 (two) times a day 180 tablet 3 01/30/2021 3 multivit,tx with iron,minerals (THERA-M ORAL) Take 1 tablet by mouth every morning [address] (PROTONIX) 40 mg EC tablet Take 1 tablet (40 mg total) by mouth daily 3 pravastatin (PRAVACHOL) 40 mg tablet Take 40 mg by mouth daily 3 QUEtiapine (SEROquel) 25 mg tablet Take 1 tablet (25 mg total) by mouth every 6 (six) hours as needed (agitation) 10/27/2021 3 thiamine (VITAMIN B1) 100 mg tabletIndications :Thiamine Deficiency Take 100 mg by mouth every morning 3 documented as of this encounter Ordered Prescriptions Prescription Sig Dispense Quantity Refills Last Filled Start Date End Date clopidogreL (PLAVIX) 75 mg tablet Take 1 tablet (75 mg total) by mouth daily 30 tablet 11 07/17/2022 07/30/2022 documented in this encounter Discharge Disposition Disposition Code Departure Means Destination Comment s Discharge to home or self care documented in this encounter Progress Notes * Pedro Luis Gomez MD - 07/17/2022 8:14 AM CDT Images from the original note were not included. Cardiology Lakhwinder Chaudhry, MD Donavan Davila, MD Ray Marmolejo, MD Abiodun Novak, MD Dmitry Das, MD Cuong Guzman, MD Clarence Wilkes, MD Linwood Meza, MD Rehana Thompson, DO MD Rui Gilliam, MD Andreas Wheeler, MD Damir Dowling, GARIMA Montano, GARIMA Palacios, CRAWLER TRACTOR OPERATOR Patient Name: Jania Redman Provider: Abiodun Novak M.D. : 1950 Date of Service: 04/17/2022 Referring: Yvette CHIEF COMPLAINT: Atrial Fibrillation HISTORY OF PRESENT ILLNESS: 71 y.o. male with a history of atrial fibrillation, off anticoagulation due to falls and recurrent intracranial hemorrhage. Overall he is doing well. He remains in assisted living. He tells me he is had no recent falls. Notclear to me how much ambulation he is doing. He is in a wheelchair today. He is not aware of any sense of excessive tachycardia. He is had no syncope. He is not being seen today with anyone he can provide further independent occasionally his current health status. Echo last spring with normal LV function no significant valvular disease PHYSICAL EXAM: BP 110/74 Pulse 67 Ht 177.8 cm (5' 10 ) Wt 79.4 kg (175 lb) SpO2 98% BMI 25.11 kg/m?? Body mass index is 25.11 kg/m??. General: Well appearing and in no distress Respiratory: Clear to ausculation bilaterally; no wheezing/rales/rhonchi; respirations non-labored,good effort and excursion Cardiovascular: Irregularly,normal PMI, normal S1 and S2. No S3 or S4. No murmers or rubs. Carotid upstrokes brisk bilaterally and without bruits Extremities: warm and well perfused with no cyanosis, clubbing, or edema Pulses: intact and symmetric Musculoskeletal: no obvious joint deformities, normal gait, in wheelchairPoor candidate for detention oral anticoagulation given recurrent falls reason intracranial hemorrhage; but may be tolerant ofshort term anticoagulation as necessary post procedure. Given their elevated CHADS2-Vasc score of fourPoor candidate for long line teamster oral anticoagulation given prior intracranial hemorrhage reason recurrent falls; but may be tolerant of short term anticoagulation as necessary post procedure. Given their elevated CHADS2-Vasc score of four, it is reasonable to consider the Watchman device. We have discussed their unique stroke and bleeding risk both on and off anticoagulation, the rationale for Watc hman, and additional reading information was provided to the patient. I will send a message to our Watchman coordinator to follow-up on any additional testing that may be required prior to procedure., it is reasonable to consider the Watchman device. We have discussed their unique stroke and bleeding risk both on and off anticoagulation, the rationale for Watchman, and additional reading information was provided to the patient. I will send a message to our Watchman coordinator to follow-up on any additional testing that may be required prior to procedure. e Skin: no obvious rash or bruising Psychiatric: normal mood and affect Neurologic: awake/alert, no focal deficits ASSESSMENT & PLAN: Diagnoses and all orders for this visit: Chronic atrial fibrillation (HCC) (Primary) Comments: Rates controlled, no AC due to prior intracranial hemorrhage and recurrent falls. consider Watchman. Discussed with patient. Will discuss with family documented in this encounter Miscellaneous Notes * Post-Procedure Note - Pedro Luis Gomez MD - 07/17/2022 10:13 AM CDT Images from the original note were not included. [facility] [facility], [id number] [place] [address], [address] Watchman Left Atrial Appendage Occluder Placement Procedure Report 72 year old male with atrial fibrillation with elevated CHADSVASC score and elevated bleeding risk referred for Watchman device. Attending physicians: Pedro Luis Gomez MD Access:8F RFV ->14F for device placement Catheter:Pigtail Injection:Left atrial appendage Closure:Perclose Anticoagulation:39020Ropie Heparin Air Kerma:74 mGy Fluoro time:3.2 min Contrast:27 ml Optiray Sedation:general per anesthesia Procedural details: After risks, benefits, and alternatives to the procedure were explained to the patient, they agreedto proceed. After signing informed consent the patient was brought to the cardiac catheterization laboratory/hybrid OR. They were prepped and draped in sterile fashion. General anesthesia was used. Cholo guidance was the provided by Dr. Davila. A 6F sheath was inserted into the [...] the TINY ostium. Post deployment measurements were taken,with 14-21% compression. There was 0mm leak visualized [...] Pedro Luis Gomez MD 07/17/22 10:13 AM documented in this encounter Plan of Treatment Not on file documented as of this encounter Procedures Procedure Name Priority Date/Time Associated Diagnosis Comments CHOLO GUIDANCE DURING CARDIAC STRUCTURAL INTVN 90367 Routine 07/17/2022 10:55 AM CDT Atrial fibrillation, unspecified type (HCC) PERC TINY CLOSURE W/IMPLANT (WATCHMAN) [id number] Routine 07/17/2022 10:10 AM CDT Atrial fibrillation, unspecified type (HCC) POCT ACTIVATED CLOTTING TIME, HIGH RANGE Routine 07/17/2022 10:07 AM CDT ECG 12-LEAD Routine 07/17/2022 9:01 AM CDT Atrial fibrillation, unspecified type (HCC) B CHECK SAMPLE STAT 07/17/2022 8:30 AM CDT EGFR STAT 07/17/2022 8:28 AM CDT DIFFERENTIAL AUTO STAT 07/17/2022 8:2 8 AM CDT CBC WITH AUTO DIFFERENTIAL STAT 07/17/2022 8:28 AM CDT PROTIME-INR STAT 07/17/2022 8:28 AM CDT HC ANTIBODY SCREEN RBC STAT 07/17/2022 8:28 AM CDT Atrial fibrillation, unspecified type (HCC) BASIC METABOLIC PANEL STAT 07/17/2022 8:28 AM CDT documented in this encounter Results * CHOLO Guidance During Cardiac [place] Int[place] [id number] (07/17/2022 10:55 AM CDT) Anatomical Region Laterality Modality Echocardiography 07/17/2022 8:20 AM CDT Narrative 07/17/2022 11:54 AM CDT [facility] [address] [place] [address] TRANSESOPHAGEAL ECHOCARDIOGRAM Patient Name: JANIA REDMAN A : 1950 Study Date: 07/17/2022 8:20:57 [...] end of the case. Predominant flow is [id number]. Mitral Valve: Normal appearance of the mitral valve. Trace mitral valve regurgitation. There [...] end of the case. Predominant flow is [id number]-[id number]. 4. Small pericardial effusion. 5. Mild aortic root dilatation. 6. No TINY thrombus seen. During the case a left atrial appendage occlusion device was deployed in the left atrial appendage. It appears well-seated. There is no color Doppler flow around the device. Electronically Signed By: Donavan Davila MD 2022-07-17 11:54:13 CDT CC: CC: Procedure Note Donavan Davila MD - 07/17/2022 [place] [address] [place] [address] TRANSESOPHAGEAL ECHOCARDIOGRAM Patient Name: JANIA REDMAN APatient ID: [id number] : [id number] Date: 07/17/2022 8:20:57 AM Gender: MAccession #: [id number] Tech: RORYLocation: 6152 Ref.Provider: PEDRO LUIS GOMEZHeight(Cm): 178 BSA: 2.01Weight(Kg): 83.46 BP: 137/85Order Provider: PEDRO LUIS GOMEZ - Procedures: Transesophageal Echo Report: Transesophageal echocardiogram including 2D imaging, spectral doppler andcolor doppler was performed in the cardiac catheterization laboratory to support astructural procedure. The procedure was monitored with automatic blood pressuremonitoring, ECG tracings, and pulse oximetry. Sedation was achieved by anesthesia usingPropofol IV. The transesophageal probe was placed in the esophagus posterior to the heartwithout any complications. The patient tolerated the procedure well. Indications: Atrial fibrillation. Findings: BP: Blood pressure: 137/85 mmHg. Left Ventricle: Roughly low normal global left ventricular systolic function. EjectionFraction is estimated at 50-60 %. Normal left ventricular cavity size. Right Ventricle: Normal right ventricular size. Normal right ventricular systolicfunction. Left Atrium: There is mild enlargement of the left atrium. LA Appendage: No TINY thrombus seen. During the case a left atrial appendage occlusiondevice was deployed in the left atrial appendage. It appears well-seated. There is nocolor Doppler flow around the device. Right Atrium: There is mild enlargement of the right atrium. Atrial Septum: Normal atrial septum at the start of the case. During the case atrialseptostomy was performed resulting in an iatrogenic ASD at the end of the case.Predominant flow is [id number]. Mitral Valve: Normal appearance of the mitral valve. Trace mitral valve regurgitation.There is no evidence for significant mitral stenosis. Aortic Valve: Normal appearance and function of the aortic valve. Trileaflet aorticvalve. Tricuspid Valve: Grossly normal appearing tricuspid valve. TR envelope inadequate toestimate RVSP. There is trace tricuspid regurgitation. Pulmonic Valve: Pulmonic valve not well visualized. No pulmonic stenosis. No evidence ofpulmonic regurgitation. Pericardium: Small pericardial effusion. Aorta: Mild aortic root dilatation. Pulmonary Artery: Normal pulmonary artery size. Conclusions: 1. Roughly low normal global left ventricular systolic function. EjectionFraction is estimated at 50-60 %. Normal left ventricular cavity size. 2. Normal right ventricular size. Normal right ventricular systolicfunction. 3. Normal atrial septum at the start of the case. During the case atrialseptostomy was performed resulting in an iatrogenic ASD at the end of the case.Predominant flow is augz-nd-itmty. 4. Small pericardial effusion. 5. Mild aortic root dilatation. 6. No TINY thrombus seen. During the case a left atrial appendage occlusiondevice was deployed in the left atrial appendage. It appears well-seated. There is nocolor Doppler flow around the device. Electronically Signed By: Donavan Davila MD 2022-07-17 11:54:13 CDT CC: CC: us Pedro Luis Gomez MD CV ECHO PROCEDURES Final Result * PERC TINY CLOSURE W/IMPLANT (WATCHMAN) [id number] (07/17/2022 10:10 AM CDT) Anatomical Region Laterality Modality X-Ray Angiograph y Narrative 07/17/2022 10:21 AM CDT Images from the original result were not included. [facility] ?? [address] [facility], [id number] [place], [place], [address] ?? Watchman Left Atrial Appendage Occluder Placement Procedure Report 72 year old male with atrial fibrillation with elevated CHADSVASC score and elevated bleeding risk referred for Watchman device. Attending physicians: ??Pedro Luis Gomez MD Access:8F RFV ->14F for device placement Catheter:Pigtail Injection:Left atrial appendage Closure:Perclose Anticoagulation:10131Wbegj Heparin Air Kerma:74 mGy Fluoro time:3.2 min Contrast:27 ml Optiray Sedation:general per anesthesia Procedural details: After risks, benefits, and alternatives to the procedure were explained to the patient, they agreed to proceed. ??After signing informed consent the patient was brought to the cardiac catheterization laboratory/hybrid OR. ?? They were prepped and draped in sterile fashion. General anesthesia was used. ??Cholo guidance was the provided by Dr. Davila. A 6F sheath was inserted into the right femoral vein using the modified Seldinger technique, micropuncture access, and ultrasound guidance. ??We then advanced the Versacross catheter and wire. ??We then performed transseptal puncture using this system and CHOLO guidance. ??We confirmed appropriate height for the Watchman system. ??We advanced the catheter across the intra-atrial septum and advanced the wire into the left superior pulmonary vein. ??Heparin was administered to achieve an ACT greater than 300. Using the stiff wire as a rail, we then advanced the Watchman sheath into the left atrium. ??Left atrial pressure was 11mm Hg. ??We removed the stiff wire and then advanced the pigtail catheter into the left atrial appendage. ??We maneuvered the sheath into the appendage, and performed angiography as well. ??Baseline width of the appendage was 21mm. ??We then advanced a 27mm Watchman FLX device and deployed it using CHOLO and fluoroscopic guidance in the TINY ostium. ??Post deployment measurements were taken, with 14-21% compression. ??There was 0mm leak visualized by CHOLO or angiography. ??We satisfied PASS criteria and the device was released with excellent positioning. The system was removed and the access site was closed with the perclose sutures. ??Final CHOLO showed well seated device and a small ??iatrogenic ASD (inherent to the procedure). ??There was no pericardial effusion noted at end of case. ??Patient was extubated and transferred to the PACU for further monitoring and care. A/P: ??Successful Watchman FLX procedure with 27mm device deployed. ?? Continue optimal medical therapy. ??Further management per the cardiology and medicine teams. Pedro Luis Gomez MD 07/17/22 10:13 AM us Pedro Luis Gomez MD CV ELECTROPHYSIOLOGY PROCS Final Result * (ABNORMAL) POC Activated Clotting Time, High Range (07/17/2022 10:07 AM CDT) ACT 276(H) 87 - 138 sec [facility] Blood 07/17/2022 10:0 7 AM CDT 07/17/2022 10:07 AM CDT us Pedro Luis Gomez MD LAB BLOOD ORDERABLES Final Resul t Performing Organization Address City/[facility]/ZIP Co de Phone Number [facility] [address] Department [place] [address] * ECG 12 lead (07/17/2022 9:01 AM CDT) 07/17/2022 9:01 AM CDT Narrative [facility] - 07/17/2022 3:53 PM CDT Vent Rate: 67 bpm RR Interval: 885 msec IL Interval: 0 msec QRS Duration: 89 msec QT Interval: 420 msec QTC Interval: 436 msec P-R-T Lapaz: 0 - 4 - -9 degrees ATRIAL FIBRILLATION ABNORMAL RHYTHM ECG Electronically Signed By: Clarence Wilkes MD us Pedro Luis Gomez MD ECG ORDERABLES Final Result Performing Organization Address City/[facility]/ZIP Co de Phone Number [facility] * Check Sample (07/17/2022 8:30 AM CDT) ABO Rh O Positive [facility] HCLL OTHER 07/17/2022 8:30 AM CDT 07/17/2022 8:57 AM CDT us Pedro Luis Gomez MD LAB BLOOD ORDERABLES Final Resul t Performing Organization Address City/[facility]/ZIP Co de Phone Number [facility] [address] [place] [address] * eGFR (07/17/2022 8:28 AM CDT) [facility] Signature eGFR 96 mL/min/1. 73 m2 [facility] Comment: Interpretive Data Reference Interval Normal ?>/= [...] of Race in Diagnosing Kidney Disease, JASN 202). The CKD-EPI equation should not be used for patients with unstable renal function and has not been validated in children and those over 70. Current interpretive data was last reviewed 2021. Blood 07/17/2022 8:28 AM CDT 07/17/2022 8:37 AM CDT us Pedro Luis Gomez MD LAB BLOOD ORDERABLES Final Resul t Performing Organization Address [place]/[facility]/ZIP Co de Phone Number [facility] [address] Department [email or web address] [address] * Differential, auto (07/17/2022 8:28 AM CDT) Neutrophil abs 2.9 1.7 - 6.5 K/cumm [facility] Imm gran abs 0.0 0.0 - 0.1 K/cumm [facility] Lymphocyte abs 1.7 0.8 - 3.3 K/cumm [facility] Monocyte abs 0.4 0.2 - 0.8 K/cumm [facility] Eosinophil abs 0.2 0.0 - 0.5 K/cumm [facility] Basophil abs 0.0 0.0 - 0.1 K/cumm [facility] Neutrophil pct 56.0 % [facility] Comment: Interpretive Data Percent cell count reference ranges are not reported, since discordance with absolute values may lead to misinterpretation of CBC data. Current Interpretive Data was last revised on 2017. Imm gran pct 0.2 % [facility] Comment: Interpretive Data Percent cell count reference ranges are not reported, since discordance with absolute values may lead to misinterpretation of CBC data. Current Interpretive Data was last revised on 2017. Lymphocyte pct 32.4 % [facility] Comment: Interpretive Data Percent cell count reference ranges are not reported, since discordance with absolute values may lead to misinterpretation of CBC data. Current Interpretive Data was last revised on 2017. Monocyte pct 7.1 % [facility] Comment: Interpretive Data Percent cell count reference ranges are not reported, since discordance with absolute values may lead to misinterpretation of CBC data. Current Interpretive Data was last revised on 2017. Eosinophil pct 3.7 % [facility] Comment: Interpretive Data Percent cell count reference ranges are not reported, since discordance with absolute values may lead to misinterpretation of CBC data. Current Interpretive Data was last revised on 2017. Basophil pct 0.6 % [facility] Comment: Interpretive Data Percent cell count reference ranges are not reported, since discordance with absolute values may lead to misinterpretation of CBC data. Current Interpretive Data was last revised on 2017. Blood 07/17/2022 8:28 AM CDT 07/17/2022 8:37 AM CDT us Pedro Luis Gomez MD LAB BLOOD ORDERABLES Final Resul t Performing Organization Address [facility] Co de Phone Number [facility] [address] [facility] [place], [place] [id number] * Type and screen (07/17/2022 8:28 AM CDT) ABO Rh O Positive [facility] Nancy, indirect Negative [facility] Blood 07/17/2022 8:28 AM CDT 07/17/2022 8:49 AM CDT Narrative [facility] - 07/17/2022 9:36 AM CDT Has the patient had Daratumumab or Isatuximab in the past 6 months?->Unknown us Pedro Luis Gomez MD LAB BLOOD BANK TEST ORDERABLES F inal Result Performing Organization Address [facility] Co de Phone Number [facility] [address] [facility] [place] [place], [place] [id number] * Protime-INR (07/17/2022 8:28 AM CDT) PT 13.5 9.2 - 13.5 sec [facility] INR 1.2 0.9 - 1.2 [facility] Comment: Interpretive data Oral anticoagulant therapeutic ranges: Venous thromboembolism prophylaxis or treatment: 2.0-3.0 CARDIOLOGY Standard range: 2.0-3.0 High-intensity range: 2.5-3.5 Refer to indication-specific guidelines for appropriate target ranges for prosthetic heart valve replacement. Current interpretive data was last revised on 2019. Blood 07/17/2022 8:28 AM CDT 07/17/2022 8:37 AM CDT us Pedro Luis Gomez MD LAB BLOOD ORDERABLES Final Resul t Performing Organization Address [facility] Co de Phone Number [facility] [address] [facility] [place] [place], [place] [id number] * (ABNORMAL) CBC with auto differential (07/17/2022 8:28 AM CDT) [facility] WBC 5.2 3.8 - 9.9 K/cumm [facility] Hgb 11.7(L) 13.0 - 17.5 g/dL [facility] Hct 36.3(L) 38.9 - 50.3 % [facility] Plt 109(L) 150 - 400 K/cumm [facility] MPV 10.7 9.1 - 12.3 fL [facility] RBC 3.63(L) 4.30 - 5.80 M/cumm [facility] MCV 100.0(H) 81.3 - 96.4 fL [facility] MCH 32.2 27.1 - 33.3 pg [facility] MCHC 32.2(L) 32.3 - 35.7 g/dL [facility] RDW CV 13.0 11.1 - 14.9 % [facility] RDW SD 47.7 35.7 - 48.1 fL [facility] NRBC abs 0.00 0.00 - 0.01 K/cumm [facility] Blood 07/17/2022 8:28 AM CDT 07/17/2022 8:37 AM CDT us Pedro Luis Gomez MD LAB BLOOD ORDERABLES Final Resul t [facility] [address] [place] [address] * (ABNORMAL) Basic metabolic panel (07/17/2022 8:28 AM CDT) [facility] Sodium 143 135 - 145 mmol/L [facility] Potassium, pl 3.5 3.3 - 4.9 mmol/L [facility] Chloride 109 97 - 110 mmol/L [facility] CO2 27 22 - 32 mmol/L [facility] Anion gap 7 2 - 15 mmol/L [facility] BUN 12 8 - 25 mg/dL [facility] Creatinine 0.76(L) 0.80 - 1.30 mg/dL [facility] Glucose 107 70 - 199 mg/dL [facility] Comment: Interpretive Data Fasting glucose >/= 126 [...] interpretive data was last revised 2022. Calcium 8.4(L) 8.5 - 10.3 mg/dL [facility] Blood 07/17/2022 8:28 AM CDT 07/17/2022 8:37 AM CDT us Pedro Luis Gomez MD LAB BLOOD ORDERABLES Final Resul t [facility] [address] [place] [address] documented in this encounter Visit Diagnoses Diagnosis Atrial fibrillation (CMS/HCC) (HCC)- Primary Atrial fibrillation Atrial fibrillation, unspecified type (HCC) A-fib (CMS/HCC) (HCC) Atrial fibrillation Atrial fibrillation, unspecified type (HCC) documented in this encounter Admitting Diagnoses Diagnosis Atrial fibrillation (CMS/HCC) (HCC) Atrial fibrillation A-fib (CMS/HCC) (HCC) Atrial fibrillation documented in this encounter Administered Medications Inactive [...] Given 07/17/2022 9:39 AM CDT 900 mg sodium chloride 0.9% infusion 15 mL/hr, intravenous, Continuous, Starting on Sat07/17/22 at 0900, Pre-Procedure (CV)Indications:Atrial fibrillation, unspecified type (HCC) New Bag 07/17/2022 9:29 AM CDT sodium chloride 0.9% infusion 15 mL/hr, intravenous, Continuous, Starting on Sat07/17/22 at 0900, Pre-Procedure (CV)Indications:Atrial fibrillation, unspecified type (HCC) documented in this encounter Active and Recently Administered Medications Times are shown in CDT. Scheduled Medication Order 07/15/2022 07/16/2022 07/17/2022 clindamycin (CLEOCIN) 900 mg/50 mL in dextrose 5% (premix) 900 mg 900 mg, intravenous, at 100 mL/hr, Administer over 30 Minutes, Every 8 hours scheduled, First dose on Sat07/17/22 at 0945, Indications: penicillin allergy 0939 (Given - Provid er: Kathleen Caceres CRNA)0945 (Due) Continuous Medication Order 07/15/2022 07/16/2022 07/17/2022 sodium chloride 0.9% infusion 15 mL/hr, intravenous, Continuous, Starting on Sat07/17/22 at 0900, Pre-Procedure (CV) 0929 (New Bag - Prov ider: Kathleen Caceres CRNA)1017 (Anesthesia Volume Adjustment - Provider: Kathleen Caceres CRNA)1759 (Due: Stopped) sodium chloride 0.9% infusion 15 mL/hr, intravenous, Continuous, Starting on Sat07/17/22 at 0900, Pre-Procedure (CV) 0900 (Due) sodium chloride 0.9% infusion 100 mL/hr, intravenous, Continuous, Starting on Sat07/17/22 at 1215, For 3 hours, Recovery (CV) 1215 (Due) PRN Medication Order 07/15/2022 07/16/2022 07/17/2022 heparin in 0.9% sodium chloride 1,000 units/500 mL (2 unit/mL) infusion (premix) (CANCELED) Code/trauma/sedation medication, Starting on Sat07/17/22 at 0940, Intra-Procedure (CV) 0940 (Given - Provid er: Pedro Luis Gomez MD - Comment: back table flush) ioversoL (OPTIRAY 350) injection (CANCELED) Code/trauma/sedation medication, Starting on Sat07/17/22 at 1009, Intra-Procedure (CV) 1009 (Given - Provid er: Pedro Luis Gomez MD) documented in this encounter Orders Medications Ordered That Bimal ht Not Have Been Administered Count Last Ordered Date First Ordered Date albuterol 2.5 mg /3 mL (0.08 3 %) nebulizer solution 2.5 mg 1 07/17/2022 clindamycin (CLEOCIN) 900 mg /50 mL in dextrose 5% (premix) 900 mg 1 07/17/2022 diphenhydrAMINE (BENADRYL) i njection 12.5 mg 1 07/17/2022 fentaNYL (SUBLIMAZE) preserv ative free injection 25 mcg 1 07/17/2022 haloperidol (HALDOL) injection 1 mg 1 07/17 heparin in 0.9% sodium chlor monse 1,000 units/500 mL (2 unit/mL) infusion (premix) 1 07/17/2022 HYDROmorphone (DILAUDID) injection 0.2 mg 1 07/17/2022 HYDROmorphone (DILAUDID) injection 0.4 mg 1 07/17/2022 ioversoL (OPTIRAY 350) injection 1 07/18/19 labetaloL (NORMODYNE,TRANDAT E) injection 5 mg 1 07/17/2022 meperidine (DEMEROL) preserv ative free injection 12.5 mg 1 07/17/2022 naloxone (NARCAN) 0.4 mg/mL injection 0.04-0.4 mg 1 07/17/2022 ondansetron (ZOFRAN) injection 4 mg 1 07/17 oxyCODONE (ROXICODONE) tablet 5 mg 1 2022 racepinephrine (ASTHMANEFRIN ) 2.25 % nebulizer solution 0.5 mL 1 07/17/2022 sodium chloride 0.9% infusion 3 07/17/2022 Nursing Count Last Ordered Date First Orde red Date TELEMETRY MONITORING 1 07/17/2022 Admission Count Last Ordered Date First Orde red Date ADMIT TO INPATIENT 1 07/17/2022 Discharge Count Last Ordered Date First Orde red Date DISCHARGE PATIENT 1 07/17/2022 CORE MEASURES Count Last Ordered Date First Ord ered Date REASON FOR NO VTE PROPHYLAXIS AT ADMISSION 1 07/17/2022 documented in this encounter Additional Health Concerns Infection Onset Date Last Indicated Resolved Time MDR gram neg/ESBL Comment:06/16/2021 IP Review - Pt with scrotal abscess, but is not actively draining (last documented draining on 06/14). Pt remains intubated so requires trach aspirate for isolation discontinuation. Provider notified. Amanda Walker RN 12/19/2019 12/19/2019 documented as of this encounter Care Teams Air Grinder Relationship Specialty Start Date End Date Abiodun Novak MD [address] [facility] [address] [place] [address] PCP - General Cardiology 06/13/22 05/09/23 Jean-Claude Crawford MD [address] [place] [address] Family Medicine 04/12/20 Jessie Delvalle MD [address] [place] [address] Orthopedic Surgery 07/07/21 Sandip Barone MD [address] [facility] [address] [place] [address] Consulting Physician Neurosurgery 07/07/21 documented as of this encounter
--- OUTSIDE RECORDS SUMMARY | 2024-04-08 10:33 | XMS_ITS | Encounter Summary ---
Author Organization [facility] Address [address] [place] [address] Care Team Providers Care Automotive General Manager Name Role Phone Jean-Claude Crawford MD Primary Care Provider Jean-Claude Crawford MD Unavailable [phone] Jessie Delvalle MD Unavailable + Sandip Barone MD Unavailable [phone] Reason for Visit * Reason Comments Atrial Fibrillation Encounter Details Date Type Department Care Team (Late st Contact Info) Description 04/17/2022 12:15 PM FURNACE COOLER Office Visit [facility] Cardiology [address] [facility] [address] [place] [address] Abiodun Novak MD [address] [facility] [address] [place] [address] Chronic atrial fibrillation (HCC) (Primary Dx) Social History Tobacco Use Types [...] often do you attend chur ch or hoahaoism services? Never 10/06/2021 Do you belong to any clubs o r organizations such as temple groups, unions, fraternal or athletic groups, or [...] place to sleep or slept in a nursing home (including now)? No 10/06/2021 Sex and Gender Information Value Date Recorded Sex Assigned at Not on file Legal Sex Male 9:10 PM FURNACE COOLER Gender Identity Not on file Sexual Orientation Not on file documented as of this encounter Last Filed Vital Signs Vital Sign Reading Time Taken Comments Blood Pressure 110/74 04/17/2022 12:23 PM FURNACE COOLER Pulse 67 04/17/2022 12:23 PM FURNACE COOLER Temperature - - Respiratory Rate - - Oxygen Saturation 98% 04/17/2022 12:23 PM FURNACE COOLER Inhaled Oxygen Concentration - - Weight 79.4 kg (175 lb) 04/17/2022 12:23 PM FURNACE COOLER Height 177.8 cm (5' 10 ) 04/17/2022 12:23 PM FURNACE COOLER Body Mass Index 25.11 04/17/2022 12:23 PM FURNACE COOLER documented in this encounter Progress Notes * Abiodun Novak MD - 04/17/2022 12:15 PM CST Images from the original note were not included. [facility] Cardiology [address] [address] Cardiology Lakhwinder Chaudhry, MD Donavan Davila, MD Ray Marmolejo, MD Abiodun Novak, MD Dmitry Das, MD Cuong Guzman, MD Clarence Wilkes, MD Linwood Meza, MD Rehana Thompson, DO Pedro Luis Mccormack, MD Rui Villegas, MD Andreas Wheeler, MD Damir Dowling, CONTRACTOR GENERAL ENGINEERING Jannie Montano, CONTRACTOR GENERAL ENGINEERING Jeanine Palacios, CONTRACTOR GENERAL ENGINEERING Patient Name: Lloyd Redman Provider: Abiodun Novak [...] deformities, normal gait, in wheelchairPoor candidate for rat exterminator oral anticoagulation given recurrent falls reason intracranial hemorrhage; but may be tolerant ofshort term anticoagulation as necessary post procedure. Given their elevated CHADS2-Vasc score of fourPoor candidate for fci oral anticoagulation given prior intracranial hemorrhage reason [...] Discussed with patient. Will discuss with family Abiodun Novak M.D., [facility] COOLER documented in this encounter Plan of Treatment Not on file documented as of this encounter Visit Diagnoses Diagnosis Chronic atrial fibrillation (HCC)- Primary Atrial fibrillation documented in this encounter Historical Medications * This list may reflect changes made after this encounter. divalproex DR (DEPAKOTE) 250 mg EC tablet Take 125 mg by mouth 3 (three) times a day as needed (Increasing agitation) atorvastatin (LIPITOR) 10 mg tablet Take 1 tablet (10 mg total) by mouth nightly added in this encounter Additional Health Concerns Infection Onset Date Last Indicated Resolved Time MDR gram neg/ESBL Comment:06/16/2021 IP Review - Pt with scrotal abscess, but is not actively draining (last documented draining on 06/14). Pt remains intubated so requires trach aspirate for isolation discontinuation. Provider notified. Amanda Walker RN 12/19/2019 12/19/2019 documented as of this encounter Care Teams Automotive General Manager Relationship Specialty Start Date End Date Jean-Claude Crawford MD [address] [address] PCP - General Family Medicine 04/12/20 06/12/22 Jean-Claude Crawford MD [address] [place] [address] Family Medicine 04/12/20 Jessie Delvalle MD [address] [address] Orthopedic Surgery 07/07/21 Sandip Barone MD [address] [address] Consulting Physician Neurosurgery 07/07/21 documented as of this encounter
--- OUTSIDE RECORDS SUMMARY | 2024-04-08 10:33 | XMS_ITS | Encounter Summary ---
Author Organization [facility] Address [address] [place] [address] Care Team Providers Care Store Administrator Name Role Phone Jean-Claude Crawford MD Primary Care Provider Jean-Claude Crawford MD Unavailable [phone] Jessie Delvalle MD Unavailable + Sandip Barone MD Unavailable [phone] Encounter Details Date Type Department Care Team (Late st Contact Info) Description 04/17/2022 Telephone [facility] Cardiology [address] [facility] [address] [place] [address] Abiodun Novak MD [facility] [facility] [address] [place] [address] Social History Tobacco Use Types [...] often do you attend chur ch or taoist services? Never 10/06/2021 Do you belong to any clubs o r organizations such as druze groups, unions, fraternal or athletic groups, or [...] slept in a [facility] (including now)? No 10/06/2021 Sex and Gender Information Value Date Recorded Sex Assigned at Not on file Legal Sex Male 9:10 PM STRATEGIC SOURCING MANAGER Gender Identity Not on file Sexual Orientation Not on file documented as of this encounter Miscellaneous Notes * Telephone Encounter - Guillermina Luna MA - 04/17/2022 12:[address] Dr. Novak would like for patient to be set up for a Watchman consult, please contact ex- (Raine Redman) to arrange consult. [phone] TEGIC SOURCING MANAGER documented in this encounter Plan of Treatment [...] documented as of this encounter Care Teams Store Administrator Relationship Specialty Start Date End Date Jean-Claude Crawford MD [address] [place] [address] PCP - General Family Medicine 04/12/20 06/12/22 Jean-Claude Crawford MD [address] [place] [address] Family Medicine 04/12/20 Jessie Delvalle MD [address] [place] [address] Orthopedic Surgery 07/07/21 Sandip Barone MD [address] [address] Consulting Physician Neurosurgery 07/07/21 documented as of this encounter
--- OUTSIDE RECORDS SUMMARY | 2024-04-08 10:33 | XMS_ITS | Encounter Summary ---
Author Organization [facility] Healthcare Address [address] [place] [address] Care Team Providers Care Executive Assistant Name Role Phone Jean-Claude Crawford MD Unavailable [phone] Jessie Delvalle MD Unavailable + Sandip Barone MD Unavailable Abiodun Novak MD Primary Care Provider [phone] Reason for Visit * Auth/Cert (Routine) Specialty Diagnoses / Procedures Referred By Lei t Referred To Contact Diagnoses Atrial fibrillation, unspecified type (HCC) Atrial fibrillation, unspecified type (HCC) [I48.91] Procedures MS PERQ CLSR TCAT L ATR APNDGE W/ENDOCARDIAL IMPLNT MS ECHO CHOLO GUID TCAT ICAR/VESSEL STRUCTURAL INTVN PERC TINY CLOSE W/IMPLANT [id number] Referral ID Status Reason Start Date Expiration Date Visits Re quested Visits Authorized [id number] 1 1 Encounter Details Date Type Department Care Team (Late st Contact Info) Description 07/17/2022 9:30 AM CDT - 07/17/2022 11:00 AM CDT Surgery [facility] [address] [place] [phone] Pedro Luis Gomez MD [address] [facility] [address] [place] [address] PERC TINY CLOSE W/IMPLANT [id number] Surgery Details Date/Time Status Location OR Service Patient Class Case Class Case Type Trauma Case? 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 Never 10/06/2021 Do you belong to any clubs o r organizations such as taoism groups, unions, fraternal or athletic groups, or [...] slept in a retirement (including now)? 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 Gender Identity Not on file Sexual Orientation Not on file documented as of this encounter Last Filed Vital Signs Vital Sign Reading Time Taken Comments Blood Pressure 129/92 07/17/2022 11:00 AM CDT Pulse 84 07/17/2022 11:00 AM CDT Temperature 36 ??C (96.8 ??F) 07/17/2022 10:25 AM CDT Respiratory Rate 10 07/17/2022 11:00 AM CDT Oxygen Saturation 95% 07/17/2022 11:00 AM CDT Inhaled Oxygen Concentration - - Weight 83.6 kg (184 lb 4.9 oz) 07/17/2022 8:40 A M CDT Height 177.8 cm (5' 10 ) 07/17/2022 8:40 AM CDT Body Mass Index 26.44 07/17/2022 8:40 AM CDT documented in this encounter Discharge Instructions * Discharge Instructions* Vandana Greene - 07/17/2022 11:58 AM CDT Cardiac Laboratory [address] [place], [place] [address] CCL Discharge Instructions---Angiogram MEDICATIONS [] Do not take [...] for any reason without discussing with your control clerk auditing first. - These medications may make you [...] home diet [] Special diet Instructed by Lab Rn ACTIVITY You have been given medications which [...] Gilliam, MD Andreas Wheeler, MD Damir Dowling, VB NET PROGRAMMER Jannie Montano, VB NET PROGRAMMER Jeanine Palacios, VB NET PROGRAMMER Patient Name: Jania Redman Provider: Abiodun Novak [...] deformities, normal gait, in wheelchairPoor candidate for equipment operator intermodal yard oral anticoagulation given recurrent falls reason intracranial hemorrhage; but may be tolerant ofshort term anticoagulation as necessary post procedure. Given their elevated CHADS2-Vasc score of fourPoor candidate for equipment operator intermodal yard oral anticoagulation given prior intracranial hemorrhage reason [...] the original note were not included. [facility] [place] [facility], [id number], [address] Watchman Left Atrial Appendage Occluder Placement Procedure Report 72 year old male with atrial fibrillation with elevated CHADSVASC score and elevated bleeding risk referred for Watchman device. Attending physicians: Pedro Luis Gomez MD Access:8F RFV ->14F for device placement Catheter:Pigtail Injection:Left atrial appendage Closure:Perclose Anticoagulation:83181Tdzej Heparin Air Kerma:74 mGy Fluoro time:3.2 min [...] Comments CHOLO GUIDANCE DURING CARDIAC STRUCTURAL INTVN [id number] Routine 07/17/2022 10:55 AM CDT Atrial fibrillation, unspecified type (HCC) PERC TINY CLOSURE W/IMPLANT (WATCHMAN) [id number] Routine 07/17/2022 10:10 AM CDT Atrial fibrillation, [...] * CHOLO Guidance During Cardiac Structural Intvn [id number] (07/17/2022 10:55 AM CDT) Anatomical Region Laterality Modality Echocardiography 07/17/2022 8:20 AM CDT Narrative 07/17/2022 11:54 AM CDT [facility] [address] [place] [address] TRANSESOPHAGEAL ECHOCARDIOGRAM Patient Name: JANIA REDMAN A [...] end of the case. Predominant flow is yiqz-ar-[id number]. Mitral Valve: Normal appearance of the mitral [...] end of the case. Predominant flow is civj-zb-jqbuv. 4. Small pericardial effusion. 5. Mild aortic root dilatation. 6. No TINY thrombus seen. During the case a left atrial appendage occlusion device was deployed in the left atrial appendage. It appears well-seated. There is no color Doppler flow around the device. Electronically Signed By: Donavan Davila MD 2022-07-17 11:54:13 CDT CC: CC: Procedure Note Donavan Davila MD - 07/17/2022 [facility] [address] [place] [address] TRANSESOPHAGEAL ECHOCARDIOGRAM Patient Name: JANIA REDMAN APatient ID: [id number] : [id number] Date: 07/17/2022 8:20:57 AM Gender: MAccession #: [id number] Tech: RORYLocation: 6152 Ref.Provider: PEDRO LUIS GOMEZHeight(Cm): [...] the end of the case.Predominant flow is gnjf-kb-sxuso. Mitral Valve: Normal appearance of the mitral [...] the end of the case.Predominant flow is mxwg-bk-abuqt. 4. Small pericardial effusion. 5. Mild aortic [...] Result * PERC TINY CLOSURE W/IMPLANT (WATCHMAN) [id number] (07/17/2022 10:10 AM CDT) Anatomical Region Laterality Modality X-Ray Angiograph y Narrative 07/17/2022 10:21 AM CDT Images from the original result were not included. [facility] ?? [address] [facility], [id number] [place], [place], [address] ?? Watchman Left Atrial Appendage Occluder Placement Procedure Report 72 year old male with atrial fibrillation with elevated CHADSVASC score and elevated bleeding risk referred for Watchman device. Attending physicians: ??Pedro Luis Gomez MD Access:8F RFV ->14F for device placement Catheter:Pigtail Injection:Left atrial appendage Closure:Perclose Anticoagulation:44132Vzkch Heparin Air Kerma:74 mGy Fluoro time:3.2 min [...] CDT) ACT 276(H) 87 - 138 sec [facility] Blood 07/17/2022 10:0 7 AM CDT 07/17/2022 10:07 AM CDT us Pedro Luis Gomez MD LAB BLOOD ORDERABLES Final Resul t [facility] [address] Department [place] [address] * ECG 12 lead (07/17/2022 9:01 AM CDT) 07/17/2022 9:01 AM CDT Narrative [facility] - 07/17/2022 3:53 PM CDT Vent Rate: 67 bpm RR Interval: 885 msec MS Interval: 0 msec QRS Duration: 89 msec QT Interval: 420 msec QTC Interval: 436 msec P-R-T [place]: 0 - 4 - -9 degrees ATRIAL FIBRILLATION ABNORMAL RHYTHM ECG Electronically Signed By: Clarence Wilkes MD us Pedro Luis Gomez MD ECG ORDERABLES Final Result [facility] * Check Sample (07/17/2022 8:30 AM CDT) ABO Rh O Positive [facility] HCLL OTHER 07/17/2022 8:30 AM CDT 07/17/2022 8:57 AM CDT us Pedro Luis Gomez MD LAB BLOOD ORDERABLES Final Resul t [facility] [address] Department [place] [address] * eGFR (07/17/2022 8:28 AM CDT) eGFR 96 mL/min/1. 73 m2 [facility] Comment: Interpretive Data Reference Interval Normal ?>/= [...] MD LAB BLOOD ORDERABLES Final Resul t [facility] [address] Department [place] [address] * Differential, auto (07/17/2022 8:28 AM CDT) Neutrophil abs 2.9 1.7 - 6.5 K/cumm [facility] Imm gran abs 0.0 0.0 - 0.1 K/cumm [facility] Lymphocyte abs 1.7 0.8 - 3.3 K/cumm [facility] Monocyte abs 0.4 0.2 - 0.8 K/cumm [facility] Eosinophil abs 0.2 0.0 - 0.5 K/cumm [facility] Basophil abs 0.0 0.0 - 0.1 K/cumm [facility] Neutrophil pct 56.0 % [facility] Comment: Interpretive Data Percent cell count reference ranges are not reported, since discordance with absolute values may lead to misinterpretation of CBC data. Current Interpretive Data was last revised on 2017. Imm gran pct 0.2 % [facility] Comment: Interpretive Data Percent cell count reference ranges are not reported, since discordance with absolute values may lead to misinterpretation of CBC data. Current Interpretive Data was last revised on 2017. Lymphocyte pct 32.4 % [facility] Comment: Interpretive Data Percent cell count reference ranges are not reported, since discordance with absolute values may lead to misinterpretation of CBC data. Current Interpretive Data was last revised on 2017. Monocyte pct 7.1 % [facility] Comment: Interpretive Data Percent cell count reference ranges are not reported, since discordance with absolute values may lead to misinterpretation of CBC data. Current Interpretive Data was last revised on 2017. Eosinophil pct 3.7 % [facility] Comment: Interpretive Data Percent cell count reference ranges are not reported, since discordance with absolute values may lead to misinterpretation of CBC data. Current Interpretive Data was last revised on 2017. Basophil pct 0.6 % [facility] Comment: Interpretive Data Percent cell count reference ranges are not reported, since discordance with absolute values may lead to misinterpretation of CBC data. Current Interpretive Data was last revised on 2017. Blood 07/17/2022 8:28 AM CDT 07/17/2022 8:37 AM CDT Pedro Luis Gomez MD LAB BLOOD ORDERABLES Final Resul t Performing Organization Address [facility]/ZIP Co de Phone Number [facility] [address] Department [employer] [place], [place] [id number] * Type and screen (07/17/2022 8:28 AM CDT) ABO Rh O Positive [facility] Nancy, indirect Negative [facility] Blood 07/17/2022 8:28 AM CDT 07/17/2022 8:49 AM CDT [facility] - 07/17/2022 9:36 AM CDT Has the patient had Daratumumab or Isatuximab in the past 6 months?->Unknown us Pedro Luis Gomez MD [facility] BLOOD BANK TEST ORDERABLES F inal Result Performing Organization Address [facility] Co de Phone Number [facility] [address] [place] [address] * Protime-INR (07/17/2022 8:28 AM CDT) PT 13.5 9.2 - 13.5 sec [facility] INR 1.2 0.9 - 1.2 [facility] Comment: Interpretive data Oral anticoagulant therapeutic ranges: [...] ORDERABLES Final Resul t Performing Organization Address [facility] Co de Phone Number [facility] [address] Department of [employer] [place], [place] [id number] * (ABNORMAL) CBC with auto differential (07/17/2022 8:28 AM CDT) WBC 5.2 3.8 - 9.9 K/cumm [facility] Hgb 11.7(L) 13.0 - 17.5 g/dL [facility] Hct 36.3(L) 38.9 - 50.3 % [facility] Plt 109(L) 150 - 400 K/cumm [facility] MPV 10.7 9.1 - 12.3 fL [facility] RBC 3.63(L) 4.30 - 5.80 M/cumm [facility] MCV 100.0(H) 81.3 - 96.4 fL [facility] MCH 32.2 27.1 - 33.3 pg [facility] MCHC 32.2(L) 32.3 - 35.7 g/dL [facility] RDW CV 13.0 11.1 - 14.9 % [facility] RDW SD 47.7 35.7 - 48.1 fL [facility] NRBC abs 0.00 0.00 - 0.01 K/cumm [facility] Blood 07/17/2022 8:28 AM CDT 07/17/2022 8:37 AM CDT us Pedro Luis Gomez MD LAB BLOOD ORDERABLES Final Resul t Performing Organization Address City/[facility]/ZIP Co de Phone Number [facility] [address] Department of [employer] [place], [place] [id number] * (ABNORMAL) Basic metabolic panel (07/17/2022 8:28 AM CDT) Sodium 143 135 - 145 mmol/L [facility] Potassium, pl 3.5 3.3 - 4.9 mmol/L [facility] Chloride 109 97 - 110 mmol/L [facility] CO2 27 22 - 32 mmol/L [facility] Anion gap 7 2 - 15 mmol/L [facility] BUN 12 8 - 25 mg/dL [facility] Creatinine 0.76(L) 0.80 - 1.30 mg/dL [facility] Glucose 107 70 - 199 mg/dL [facility] Comment: Interpretive Data Fasting glucose >/= 126 [...] 2022. Calcium 8.4(L) 8.5 - 10.3 mg/dL [facility] Blood 07/17/2022 8:28 AM CDT 07/17/2022 8:37 AM CDT us Pedro Luis Gomez MD LAB BLOOD ORDERABLES Final Resul t [facility] [address] Department [place] [address] documented in this encounter Visit Diagnoses Diagnosis [...] Given 07/17/2022 9:39 AM CDT 900 mg heparin in 0.9% sodium chloride 1,000 units/500 mL (2 unit/mL) infusion (premix) Code/trauma/sedation medication, Starting on Sat07/17/22 at 0940, Intra-Procedure (CV) Given 07/17/2022 9:40 AM CDT 500 mL ioversoL (OPTIRAY 350) injection Code/trauma/sedation medication, Starting on Sat07/17/22 at 1009, Intra-Procedure (CV) Given 07/17/2022 10:09 AM CDT 27 mL sodium chloride 0.9% infusion 15 mL/hr, intravenous, [...] haloperidol (HALDOL) injection 1 mg 1 07/17 HYDROmorphone (DILAUDID) injection 0.2 mg 1 07/17/2022 HYDROmorphone (DILAUDID) injection 0.4 mg 1 07/17/2022 labetaloL (NORMODYNE,TRANDAT E) injection 5 mg 1 [...] documented as of this encounter Care Teams Executive Assistant Relationship Specialty Start Date End Date Abiodun Novak MD [address] [facility] [address] [place] [address] PCP - General Cardiology 06/13/22 05/09/23 Jean-Claude Crawford MD [address] [place] [address] Family Medicine 04/12/20 Jessie Delvalle MD [address] [place] [address] Orthopedic Surgery 07/07/21 Sandip Barone MD [address] [facility] [address] [place] [address] Consulting Physician Neurosurgery 07/07/21 documented as of this encounter
--- OUTSIDE RECORDS SUMMARY | 2024-04-08 10:33 | XMS_ITS | Encounter Summary ---
Author Organization [facility] Medical Group Address [address] [facility] [address] [place] [address] Care Team Providers Care Staffing Recruiter Name Role Phone Jean-Claude Crawford MD Primary Care Provider Jean-Claude Crawford MD Unavailable [phone] Jessie Delvalle MD Unavailable + Sandip Barone MD Unavailable [phone] Encounter Details Date Type Department Care Team (Late st Contact Info) Description 02/09/2022 Telephone [facility] Medical Group Cardiology [address] [facility] [address] [place] [address] Abiodun Novak MD [facility] [facility] [address] [place] [address] Social History Tobacco Use Types [...] often do you attend chur ch or latter-day services? Never 10/06/2021 Do you belong to any clubs o r organizations such as buddhism groups, unions, fraternal or athletic groups, or [...] place to sleep or slept in a mcc (including now)? 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 Amanda Walker RN 12/19/2019 12/19/2019 COVID: Recovered Comment:CHATO Jackson, reports the patient had remained asymptomatic since testing positive for COVID and today is day 12. The patient meets criteria to be COVID Recovered. Routine retesting not recommended for 120 days or expiration date of 02.13.22 without an infectious disease physician consult. Rehana Hooper 10.16.21 Added based on recent COVID infection. 10/16/2021 10/16/2021 02/13/2022 3:[address] documented as of this encounter Care Teams Staffing Recruiter Relationship Specialty Start Date End Date Jean-Claude Crawford MD [address] [place] [address] PCP - General Family Medicine 04/12/20 06/12/22 Jean-Claude Crawford MD [address] [place] [address] Family Medicine 04/12/20 Jessie Delvalle MD [address] [address] Orthopedic Surgery 07/07/21 Sandip Barone MD [address] [address] Consulting Physician Neurosurgery 07/07/21 documented as of this encounter
--- OUTSIDE RECORDS SUMMARY | 2024-04-08 10:33 | XMS_ITS | Encounter Summary ---
Author Organization [facility] Address [address] [place] [address] Care Team Providers Care Equipment Maintenance Superintendent Name Role Phone Jean-Claude Crawford MD Primary Care Provider Jean-Claude Crawford MD Unavailable [phone] Jessie Delvalle MD Unavailable + Sandip Barone MD Unavailable [phone] Reason for Visit * Reason Onset Date Comments Nancy Mccormack 04/23/2022 Encounter Details Date Type Department Care Team (Late st Contact Info) Description 04/23/2022 Telephone [facility] Cardiology [address] [place] [address] Pedro Luis Mccormack MD [address] [place] [address] Nancy Mccormack Social History Tobacco Use Types Packs/Day Years [...] often do you attend chur ch or buddhist services? Never 10/06/2021 Do you belong to any clubs o r organizations such as confucianist groups, unions, fraternal or athletic groups, or [...] place to sleep or slept in a residential (including now)? No 10/06/2021 Sex and Gender Information Value Date Recorded Sex Assigned at Not on file Legal Sex Male 9:10 PM MANAGER DIALYSIS Gender Identity Not on file Sexual Orientation Not on file documented as of this encounter Miscellaneous Notes * Addendum Note - Marilee Villanueva RN - 06/08/2022 2:11 PM CSTAddended by: MARILEE VILLANUEVA on: 06/08/2022 02:11 PM Modules accepted: Orders GER DIALYSIS * Telephone Encounter - Marilee Villanueva RN - 06/08/2022 12:16 PM MANAGER DIALYSIS Confirmed [facility] can transport pt 06/19/22. Arrival time of 10:30 Confirmed only on ASA 81 mg no other blood thinner No allergy to contrast and no fast acting diabetic medication Will be NPO starting at midnight and can have all normal morning medications with a small sip of water Will plan for same day discharge. Nursing staff aware he will have a new order of plavix 75 mg oncedaily. Sending lab orders for bmp, cbc, pt-INT to [facility] fax: [phone] Insurance auth with [employer] intiated: [id number] GER DIALYSIS * Telephone Encounter - Marilee Villanueva RN - 05/11/2022 10:23 AM MANAGER DIALYSIS Called [facility] back in regards to FU if transportation would be available for 05/22/22. LVM for nurse inquiring on if transport is available. Name of pt and regarding message was provided as well as RN name and cb number. GER DIALYSIS * Telephone Encounter - Marilee Villanueva RN - 04/23/2022 7:57 AM MANAGER DIALYSIS WATCHMAN Initial Phone Call [employer] Dx: I48.91 (afib) LVM 04/23/22 Topic Pt answer Additional pt comments Discussed with/educated regarding watchman? What the procedure looks like and what is actually performed for the procedure Minimally invasive procedure Eliminates need for blood thinners such as warfarin, eliquis, xarelto by accomplishing the same desired outcome that blood thinners serve: decreasing risk for clotting The procedure decreases risk of clotting by sealing off a non-functional pocket off the left upper chamber of the heart (left atrium) called the left atrial appendage (TINY) Does not fully contract with each beat, allowing blood to sit there increasing chance of clotting Will make small incision at groin and thread catheter up to specific area of heart Guidance imaging through a type of echo called a JOSÉ MANUEL- which means eswzm-ngqkzjuksj-owxfgtrgllwcem The echo probe is positioned through mouth in esophagus to allow best possible images of the TINY Once position is confirmed, will thread the watchman device on catheter up to the TINY and insert it Use the echo they confirm it is well placed in the TINY and confirm no blood flow around the device Pt has been educated and reviewed the included topic points: [] Endorses having been given thorough education and explanation of procedure by provider [x] Denies [x] If denies, verbally acknowledged understanding of the discussed topic points In [facility] care facility so does need to likely have some kind of sitter or added eyes if stays overnight in hospital [facility] in [facility] CHF HTN 65-74yr Vascular disease (hx DVT) Score 4 No prior stroke or TIA noted Indic: -Thrombocytopenia - Falls - Intercranial hemorrhage After the procedure: One potential overnight stay in hospital for observation following the watchman procedure Can resume mostly all activities, only restriction would be to avoid lifting >10 lbs for the purpose of allowing the incision site to heal Will be on a dual antiplatelet therapy (DAPT) x 6 months, then transition to a once daily baby aspirin (ASA) Requires a 45 day post-JOSÉ MANUEL, to confirm healing appropriately and confirmation device is sealed off well. Will require a same day office visit (OV) with Nurse Practitioner (ADJUTANT GENERAL) in person at [facility] Since JOSÉ MANUEL requires sedation, a escort car driver will be needed on the 45 day follow up Remaining requirements of watchman completion are office visits only (no further testing) at the 6 month, 1 year, 2 year [x] Pt verbalizes understanding and acceptance to completing the following requirements after the watchman procedure: - DAPT [id number] - JOSÉ MANUEL and same day office visit with the ADJUTANT GENERAL at the 45 day randa at [facility] - Office visit at 6 month with ADJUTANT GENERAL - Office visit at 1 year with ADJUTANT GENERAL - Office visit at 2 year with ADJUTANT GENERAL Timeframe & requirements prior to procedure: Need to complete a shared decision making (SDM) either through referral form by one of the patient's care team members that is not classified as an chain maker machine (can include but not limited to: primary care physician [PCP], project management intern [GI], bundle sorter) or setting up an OV with one of the practice's design engineering specialist who are not actively doing interventional cardiology. Has the option to do an OV with the surgeon to discuss questions directly with him, but is not required, and will not qualify as the SDM visit/referral Lab work 3-30 days prior to both procedures (Watchman and post-JOSÉ MANUEL will require lab work). BMP, CBC, PT-INR. *Only if pt is not covid-vaccinated, then will need a covid test 48-72 hours prior to procedure. PCP: Jean-Claude Crawford MD [facility] performed SDM In [facility] facility: since December 2021 [facility] P: [phone] Pt's Preferred Lab: Length of wait time until procedure/current next available date for the watchman procedure: 06/19/22 JOSÉ MANUEL Screening Questions - Any hx or current issues with swallowing food/drink with getting stuck in throat? - Do you have any hx of throat/esophagus disease? - Do you or have you previously vomit/cough up blood d/t ulcers, varices, or esophagitis? - Do you have a hx of chest/neck radiation (not including x-rays)? - Do you have liver disease or cirrhosis? *If yes to any of these questions- Barium swallow test will be needed. JOSÉ MANUEL cannot be scheduled until that is performed. If extenuating circumstance, verification through performing provider. [] Yes [x] No [] Yes [x] No [] Yes [x] No [] Yes [x] No [] Yes [x] No Would they like a Pamphlet mailed to them for reference back to over this information discussed: [x]Pt would like an educational packet mailed to them (confirm address) []Pt denies wanting packet/already has one from provider Confirmed address. Put in outbox 04/23/22 GER DIALYSIS GER DIALYSIS documented in this encounter Plan of Treatment Not on file documented as of this encounter Visit Diagnoses Diagnosis Atrial fibrillation, unspecified type (HCC)- Primary Chronic atrial fibrillation (HCC) Atrial fibrillation documented in this encounter Orders Lab Orders Without Results Count Last Ordered D ate First Ordered Date BASIC METABOLIC PANEL 1 06/08/2022 CBC WITH AUTO DIFFERENTIAL 1 06/08/2022 PROTIME-INR 1 06/08/2022 documented in this encounter Additional Health Concerns Infection Onset Date Last Indicated Resolved Time MDR gram neg/ESBL Comment:06/16/2021 IP Review - Pt with scrotal abscess, but is not actively draining (last documented draining on 06/14). Pt remains intubated so requires trach aspirate for isolation discontinuation. Provider notified. Amanda Walker RN 12/19/2019 12/19/2019 documented as of this encounter Care Teams Equipment Maintenance Superintendent Relationship Specialty Start Date End Date Jean-Claude Crawford MD [address] [place] [address] [address] [address] PCP - General Family Medicine 04/12/20 06/12/22 Jean-Claude Crawford MD [address] [place] [address] [place] [address] Family Medicine 04/12/20 Jessie Delvalle MD [address] [place] [address] [address] Orthopedic Surgery 07/07/21 [place] [address] [place] [address] Consulting Physician Neurosurgery 07/07/21 documented as of this encounter
--- OUTSIDE RECORDS SUMMARY | 2024-04-08 10:33 | XMS_ITS | Encounter Summary ---
Author Organization [facility] Address [address] [place] [address] Care Team Providers Care Farm Truck Driver Name Role Phone Jean-Claude Crawford MD Unavailable [phone] Jessie Delvalle MD Unavailable + Sandip Barone MD Unavailable Abiodun Novak MD Primary Care Provider [phone] Reason for Visit * Reason Onset Date Comments Reschedule Lloyd for WM 06/18/2022 Encounter Details Date Type Department Care Team (Late st Contact Info) Description 06/18/2022 Telephone [facility] Cardiology [address] [place] [address] Pedro Luis Mccormack MD [address] [place] [address] Reschedule Lloyd for WM Social History Tobacco Use Types Packs/Day Years [...] often do you attend chur ch or jehovah's witness services? Never 10/06/2021 Do you belong to [...] on file Legal Sex Male 9:10 PM PATIENT REGISTRAR Gender Identity Not on file Sexual Orientation Not on file documented as of this encounter Miscellaneous Notes * Telephone Encounter - Mariaa Hanley RN - 06/18/2022 9:00 AM CDT LVM for confirming she received message from [facility] that pt resides in relaying he has pneumonia and that we are pushing watchman procedure until pneumonia subsides. Name and cb number provided for spouse to return message and confirm that she knows pt is not receiving watchman tomorrow. documented in this encounter Plan of Treatment [...] as of this encounter Care Teams Farm Truck Driver Relationship Specialty Start Date End Date Abiodun Novak MD [address] [place] [address] PCP - General Cardiology 06/13/22 05/09/23 Jean-Claude Crawford MD [address] [place] [address] Family Medicine 04/12/20 Jessie Delvalle MD [address] [place] [address] Orthopedic Surgery 07/07/21 Sandip Barone MD [address] [address] Consulting Physician Neurosurgery 07/07/21 documented as of this encounter
--- OUTSIDE RECORDS SUMMARY | 2024-04-08 10:34 | XMS_ITS | Encounter Summary ---
Author Organization [facility] Healthcare Address [address] [place] [address] Care Team Providers Care Bobbin Washer Name Role Phone Jean-Claude Salazar MD Primary Care Provider Jean-Claude Salazar MD Unavailable [phone] Jessie Delvalle MD Unavailable + Sandip Barone MD Unavailable [phone] Reason for Visit * Reason Comments Altered Mental Status * Auth/Cert Specialty Diagnoses / Procedures Referred By Contvon t Referred To Contact Diagnoses Disorientation Hypothermia, initial encounter Septic shock (HCC) Pneumonia of right lower lobe due to infectious organism Hypotension, unspecified hypotension type Sepsis due to COVID-19 (CMS/HCC) (HCC) Procedures adm Referral ID Status Reason Start Date Expiration Date Visits Re quested Visits Authorized [id number] 1 1 Encounter Details Date Type Department Care Team (Latest Contact Info) Description 10/04/2021 1:01 PM CDT - 11/01/2021 9:30 PM CDT Hospital Encounter [facility] [address] [place] [address] Gian Jackson MD [address] [place] [address] Della Cardenas DO [address] [place] [address] Saqib Currie DO [address] [place] [address] Elisa Oliva MD [address] [place] [address] Jennifer Gao MD [address] [place] [address] Max Cunningham MD [address] [facility] [place] [address] Maikol Acosta MD [address] [place] [address] Septic shock (CMS/HCC) (HCC) (Primary Dx); Disorientation; Hypothermia, initial encounter; Hypotension, unspecified hypotension type; Pneumonia of right lower lobe due to infectious organism Discharge Disposition: Discharge to SNF Social History [...] often do you attend chur ch or confucianist services? Never 10/06/2021 Do you belong to any clubs o r organizations such as judaism groups, unions, fraternal or athletic groups, or [...] on file Legal Sex Male 9:10 PM [employer] Gender Identity Not on file Sexual Orientation Not on file documented as of this encounter Last Filed Vital Signs Vital Sign Reading Time Taken Comments Blood Pressure 136/80 11/01/2021 9:25 PM CDT Pulse 93 11/01/2021 9:28 PM CDT Temperature 36.6 ??C (97.9 ??F) 11/01/2021 5:15 PM CD T Respiratory Rate 20 11/01/2021 5:15 PM CDT Oxygen Saturation 94% 11/01/2021 9:25 PM CDT Inhaled Oxygen Concentration - - Weight 80.6 kg (177 lb 11.1 oz) 022 11:00 AM CDT Height 180.3 cm (5' 11 ) 10/05/2021 11: 00 AM CDT Body Mass Index 24.78 10/05/2021 11:00 AM CDT documented in this encounter Discharge Summaries * Saqib Currie, - 10/12/2021 7:34 AM CDT Inpatient Discharge Summary BRIEF OVERVIEW Patient Name - Jania Redman Patient Age - 71 yrs Patient - [id number] [facility] - [id number] Document Creation Date: 10/12/2021 Admitting Provider, MD: Saqib Currie DO Discharge Provider, MD: Saqib Currie DO Primary Care Physician at Discharge: Jean-Claude Salazar MD [phone] Treatment Team: Consulting Physician: Miguel Flores MD Admission Date: 10/04/2021 Discharge Date/time: 10/12/2021 Admission Location: [facility] LOS - LOS: 8 days DETAILS OF HOSPITAL STAY Hospital Problems/Diagnoses Principal Problem: Sepsis due to COVID-19 ([facility]) ([facility]) Active Problems: Chronic systolic heart failure ([facility]) ([facility]) TBI (traumatic brain injury) ([facility]) ([facility]) Orthostatic hypotension COPD (chronic obstructive pulmonary disease) ([facility]) ([facility]) Benign prostatic hyperplasia with lower urinary tract symptoms Reason for Hospitalization: Sepsis 2/2 COVID 19 Hospital Course: 71 y.o.??year old male??with a pmhx of A-fib on no anticoagulation due to prior SAH, CHF, HTN, legally blind, A&Ox1 at baseline??who presented after being found unresponsive in his wheelchair while at home. In the ED here, he presented here with vitals notable for systolic in the 50s and bradycardia. Started on sepsis protocol, given 30 cc/kg fluids. BP improved and admitted to the floors.??He was tested positive for COVID-19 and sepsis is presumably due to viral etiology. He was given Remdesivir, no steroid because pt is not hypoxic. ?? The patient had another unwitnessed fall here in the hospital on 10/07 and was found to have right femur fracture.?He underwent??right??Das [employer] Nephew Trigen Intertan trochanteric nailing of intertrochanteric femur fracture??10/08. ?? Interval History: ?? Jania remains oriented to self only. He has intermittent complaints of hip pain. He has been resting comfortably. Discussed DVT PPx with Dr. Flores. OK with Lovenox. He remains stable for discharge to SNF. Discharge Details Physical Exam at Discharge: Discharge Condition: stable Pulse: 92 Resp: 19 BP: 140/87 Temp: 36.6 ??C (97.9 ??F) Weight: 80.6 kg (177 lb 11.1 oz) Pertinent Exam Findings at Discharge: General: Patient in no acute distress, alert and oriented??to self only HEENT: ??Normocephalic, atraumatic, sclera non-icteric Lungs: ??Normal respiratory effort, on room air Abd: ??soft, non-tender, non-distended Skin: No rash Extremities: No edema Neuro: ??No focal motor sensory deficits Discharge Disposition: Discharge to SNF Code Status at Discharge: Full Code Active Issues & Recommended Plan for Follow-up: None Time Spent in Discharge Process: I have spent 20 minutes on discharge planning activities. Time spent was on Coordination of care Test Results Pending at Discharge (If Blank, None Found): Pending Labs Order Current Status Basic metabolic panel In process CBC with auto differential In process Differential, auto In process Operative Procedures Performed (If Blank, None Found): Procedure(s): INTRAMEDULLARY NAILING FEMUR Other Procedures & Diagnostic Tests: ECG 12 lead Result Date: 10/05/2021 Vent Rate: 69 bpm RR Interval: 862 msec LA Interval: 0 msec QRS Duration: 83 msec QT Interval: 448 msec QTC Interval: 467 msec P-R-T [place]: 0 - 68 - 71 degrees ATRIAL FIBRILLATION PROLONGED QT INTERVAL ABNORMAL ECG Electronically Signed By: Andreas Wheeler MD [facility] XR Chest Pa Lateral 2 Views Result Date: 10/04/2021 Exam: XR CHEST PA LATERAL 2 VIEWS Date/Time of Exam: 10/04/2021 1:55 PM Reason For Exam: c/f infection. Diagnosis: Altered mental status. Findings: Comparison made with the exam of 06/17/2021. There is chronic mild enlargement of the heart with left ventricular prominence. The aorta is ectatic and mildly calcified. Pulmonary vascularity appears normal. The lungs are clear of acute infiltrates. Thelungs are expanded well. The pleural spaces are clear. The bony thorax appears intact. 1. No sign of pneumonia detected. 2. Mild cardiomegaly without signs of acute CHF or pulmonary edema. 3. No sign of a pleural effusion or pneumothorax. 4. Atherosclerotic change of aorta. Electronically signed by: Vicente Verma M.D. CT Head WO Contrast Result Date: 10/04/2021 EXAMINATION: CT head without contrast HISTORY: 71-year-old male with PMH subarachnoid hemorrhage, AFib no longer on anticoagulation, orthostatic hypotension, prior encephalopathy/delirium, BPH,?priorleft femur fracture s/p?ORIF,?anemia, dementia?(A&O x1 at baseline per pt's )?who presents from his nursing facility after being found unresponsive in his wheelchair. . TECHNIQUE: NoncontrastCT of the brain was performed with images acquired from skull base to vertex. COMPARISON: Comparison is made to a prior CT dated 07/02/2021. FINDINGS: There has been interval resolution in small volume intraventricular hemorrhage in the occipital horns of the lateral ventricles. There is no new acute intracranial hemorrhage. There is diffuse cerebral volume loss with associated ex vacuo dilatationof the ventricles. The ventricles are unchanged in size and morphology. Areas of hypoattenuation inthe periventricular and deep white matter are nonspecific but may be seen in the setting of chronic small vessel ischemic disease. No mass effect or midline shift is present. Bilateral lens replacements are present. A hyperdense focus in the left globe is unchanged and may represent vitreous calcification. Trace bilateral mastoid effusions. Mild mucosal thickening in the right maxillary sinus. Nofractures are identified. Atherosclerotic vascular calcifications are present, severe. Stable scalpscar /nodule at the vertex. Interval resolution of small volume intraventricular hemorrhage. No new acute intracranial hemorrhage. No large acute territory infarct. Electronically signed by: Lotus Michael M.D. Recent Labs: Recent Labs Lab Units 10/11/2160010/10/2164810/09/21614 WBC K/cumm 5.1 7.2 4.8 HEMOGLOBIN g/dL 9.4* 10.1* 9.8* HEMATOCRIT % 28.7* 30.9* 29.7* PLATELETS K/cumm 102* 105* 99* Recent Labs Lab Units 10/11/2160010/10/2164810/09/21614 WBC K/cumm 5.1 7.2 4.8 HEMOGLOBIN g/dL 9.4* 10.1* 9.8* HEMATOCRIT % 28.7* 30.9* 29.7* PLATELETS K/cumm 102* 105* 99* NEUTROS PCT % 69.1 84.2 76.3 LYMPHS PCT % 20.4 8.9 17.6 MONOS PCT % 7.9 5.9 5.5 EOS PCT % 2.2 0.6 0.4 Recent Labs Lab Units 10/12/2160210/11/2160010/10/2164810/09/2162410/09/21614 SODIUM mmol/L -- 137 136 -- 138 POTASSIUM PLASMA mmol/L -- 3.6 3.8 -- 3.8 CHLORIDE mmol/L -- 106 103 -- 105 CO2 mmol/L -- 25 23 -- 25 BUN SERUM mg/dL -- 15 17 -- 13 CREATININE mg/dL -- 0.67* 0.75* -- 0.75* [id number] mL/min/1.73 m2 -- 100 97 -- 97 GLUCOSE mg/dL -- 97 97 -- 115 POC GLUCOSE MONITOR mg/dL 89 -- -- < > -- CALCIUM mg/dL -- 8.1* 8.1* -- 8.2* < > = values in this interval not displayed. Recent Labs Lab Units 10/12/2160210/11/2160010/10/2164810/09/2162410/09/21614 SODIUM mmol/L -- 137 136 -- 138 POTASSIUM PLASMA mmol/L -- 3.6 3.8 -- 3.8 CHLORIDE mmol/L -- 106 103 -- 105 CO2 mmol/L -- 25 23 -- 25 ANIONGAP mmol/L -- 6 10 -- 8 GLUCOSE mg/dL -- 97 97 -- 115 POC GLUCOSE MONITOR mg/dL 89 -- -- < > -- BUN SERUM mg/dL -- 15 17 -- 13 CREATININE mg/dL -- 0.67* 0.75* -- 0.75* CALCIUM mg/dL -- 8.1* 8.1* -- 8.2* < > = values in this interval not displayed. No lab exists for component: LABALBU Recent Labs Lab Units 10/07/21 0630 MAGNESIUM mg/dL 1.7 Recent Labs Lab Units 10/08/21 0337 PROTIME (PT) sec 12.9 INR 1.2 Lab Results Component Value Date GLUCOSE 89 10/12/2021 GLUCOSE 97 10/11/2021 GLUCOSE 97 10/10/2021 Discharge Orders General Precautions: Precautions: Bed/Chair Alarm, Fall risk Weight Bearing Restrictions: Yes RLE Weight Bearing: As tolerated Nutritional Status and in-house recommendations: Dietary Orders (From admission, onward) Start Ordered 10/11/21 0700 Oral Nutrition Supplements Select Supplement: Ensure Enlive - Any Flavor With Breakfast and Dinner Question: Select Supplement: Answer: Ensure Enlive - Any Flavor 10/10/21 1742 10/10/21 1151 Adult Diet Regular Diet effective now Question: ([facility]) Diet type Answer: Regular 10/10/21 1151 Allergies: Penicillins Discharge Medications: Your medication list START taking these medications Instructions Last Dose Given Next Dose Due losartan 50 mg tablet Commonly known as: COZAAR Take 1 tablet (50 mg total) by mouth daily CONTINUE taking these medications Instructions Last Dose Given Next Dose Due acetaminophen 325 mg tablet Commonly known as: TYLENOL Take 2 tablets (650 mg total) by mouth every 4 (four) hours as needed for pain albuterol 2.5 mg /3 mL (0.083 %) nebulizer solution aspirin 81 mg enteric coated tablet cholecalciferol 5,000 unit tablet Commonly known as: VITAMIN D-3 fluticasone furoate-vilanteroL 100-25 mcg/dose diskus inhaler Commonly known as: BREO ELLIPTA folic acid 1 mg tablet Commonly known as: FOLVITE metoprolol 100 mg tablet Commonly known as: LOPRESSOR Take 1 tablet (100 mg total) by mouth 2 (two) times a day pantoprazole DR 40 mg EC tablet Commonly known as: PROTONIX pravastatin 40 mg tablet Commonly known as: PRAVACHOL ramelteon 8 mg tablet Commonly known as: ROZEREM Take 1 tablet (8 mg total) by mouth nightly senna 8.6 mg tablet Commonly known as: SENOKOT terazosin 10 mg capsule Commonly known as: HYTRIN THERA-M ORAL thiamine 100 mg tablet Commonly known as: VITAMIN B1 Where to Get Your Medications These medications were sent to [facility] (Home Delivery - [facility] [place] [address] [facility] [facility] [address] ?? losartan 50 mg tablet Outpatient Follow-Up: Future Appointments Date Time Provider Department Center 01/31/2022 11:45 AM Christopher Novak MD [facility] Specialty Contact Information for Follow-ups Jean-Claude Salazar MD Specialty: Family Medicine Relationship: PCP - General [address] [place] [address] Next Steps: Follow up Instructions: Call provider for an appointment to follow up within 1 week Questions: Instructions for follow-up (appointment date and time): Call provider for an appointment to follow up within 1 week To provider: JEAN-CLAUDE SALAZAR Please schedule an appointment with the following provider(s): Jean-Claude Salazar MD [address] [place] [address] Call provider for an appointment to follow up within 1 week Anticoagulation Indication: INR: 10/08/2021: 1.2 Warfarin Administrations (last 168 hours) None Oxygen Status O2 Therapy for the past 12 hrs: O2 Therapy 10/11/212119 None (Room air) Wound Care Instructions Wound 06/27/21 MASD (Moisture associated skin damage) Perineum , buttocks (Active) Active LDAs (If Blank, None Found): Peripheral IV 10/08/21 18 G Left Wrist (Active) Placement Date/Time: 10/08/21 (c) 1058 Size (Gauge): 18 G Location Orientation: Left Location: Wrist Site Prep: Chlorhexidine Insertion attempts: 1 END OF ORDERS Patient Emergency Contact: Primary Emergency Contact: RAINE REDMAN Immunization Status at Discharge Immunization History Administered Date(s) Administered ??? Influenza, Quadrivalent, High Dose, Preservative Free, Intrr 02/20/2020 Saqib Currie DO documented in this encounter Medications at Time [...] tablet (81 mg total) by mouth daily cholecalciferol (VITAMIN D-3) 5,000 unit tabletIndications :Vitamin D Deficiency Take 1 tablet (5,000 Units total) by mouth every other day folic acid (FOLVITE) 1 mg tablet Take [...] capsule (10 mg total) by mouth daily fluticasone furoate-vilantero L (BREO ELLIPTA) 100-25 mcg/dose [...] Refills Last Filled Start Date End Date amLODIPine (NORVASC) 5 mg tablet Take 1 tablet (5 mg total) by mouth daily 30 tablet 11 10/28/2021 QUEtiapine (SEROquel) 25 mg tablet Take 1 tablet (25 mg total) by mouth every 6 (six) hours as needed (agitation) 10/27/2021 08/03/2022 losartan (COZAAR) 50 mg tablet Take 1 tablet (50 mg total) by mouth daily 30 tablet 11 10/12/2021 08/03/2022 documented in this encounter Discharge Disposition Disposition Code Departure Means Destination Discharge to [facility] documented in this encounter Progress Notes * Lisa Justice, OT - 11/01/2021 10:36 AM CDT Occupational Therapy 11/01/21 1036 General Session Type Treatment OT Received On 11/01/21 Safe Environment Arm Band Checked;Chair Alarm placed and activated;Call Light within Reach;NotifiedRN Family/Caregiver Present No Precautions Precautions Bed/Chair Alarm;Fall risk Pain Assessment Pain Assessment No/denies pain Clinical Progression Not changed ADL ADL Comments Pt initially agreeable to taking a shower with OT. Pt requires significant encouragement to initiate standing from the chair despite pt agreeing to participate. Once standing pt walks tothe shower and states I'm not doing this. Pt impulsively walks back to his chair. Once seated, ptagreeable to brush his teeth. Pt walks to sink to brush his teeth and again states I'm not doing this before walking back to his chair. Transfer 1 Trials/Comments 1 Sit <> stand from chair minimum assistance. Functional mobility via ww minimum assistance for balance and maneuvering walker. Pt with poor safety awareness and attempts to walk away from his ww on several occasions. Cognition Overall Cognitive Status Impaired Arousal/Alertness Alert;Delayed responses to stimuli Attention Span Difficulty attending to directions Memory Decreased short term memory Current communication Appears Intact Orientation Oriented to person Following Commands Follows one step commands with increased time (and repetition) Safety Judgment Decreased awareness of need for safety Awareness of Errors Decreased awareness of errors Insight Decreased awareness of deficits Plan Plan Continue with current plan;If this is the last note, consider this the discharge summary Recommendation/Plan OT Recommendation (S) Intermediate Facility Education: Patient has been educated on the role of OT, safety, precautions, and ADL training. Education completed via verbal instruction. Patient needs ongoing reinforcement Multi-Disciplinary Problems (from Occupational Therapy) Active Problems Problem: OT Misc Start Date: 10/05/21 Goal Start Date Expected End Date End Date Pt. will complete total body dressing SBA 10/05/21 11/16/21 -- Goal Start Date Expected End Date End Date Pt. will complete grooming SBA 10/05/21 11/16/21 -- Goal Start Date Expected End Date End Date Pt. will complete toileting SBA 10/05/21 11/16/21 -- Goal Start Date Expected End Date End Date Pt. will complete bathing with SBA 10/05/21 11/16/21 -- * Ciarra Mandujano PTA - 11/01/2021 9:40 AM CDT Physical Therapy 11/01/21 0940 PT Last Visit Session Type Treatment PT Received On 11/01/21 Safe Environment Arm Band Checked;Chair Alarm placed and activated;Call Light within Reach;NotifiedRN;Overbed Table within Reach Subjective Agreeable to Therapy Family/Caregiver Present No Precautions Precautions Bed/Chair Alarm;Fall risk Activity Tolerance Activity Tolerance Comments VSS throughout session. Pain Assessment Pain Assessment No/denies pain Clinical Progression Not changed Cognition Cognition Comments pt requires some motivation throughout session to continue to participate in tasks. pt appears to be [place] and visibly impaired Overall Cognitive Status Impaired Arousal/Alertness Alert;Appropriate responses to stimuli Attention Span Distractability;Difficulty attending to directions Memory Decreased short term memory Orientation Oriented to person Following Commands Follows one step commands with increased time (and repetition) Safety Judgment Decreased awareness of need for assistance (and safety) Awareness of Errors Assistance required to identify errors made;Assistance required to correct errors made;Decreased awareness of errors Insight Decreased awareness of deficits Problem Solving Assistance required to identify errors made;Assistance required to generate solutions;Assistance required to implement solutions Compliance/Behavior Easy to engage Static Standing Balance Static Standing-Balance Support Bilateral upper extremity supported (ww) Static Standing-Level of Assistance Contact guard Seated Reps/Sets 10-15 Seated-Exercise Comments ankle pumps, LAQ Bed Mobility 1 Bed Mobility Comments 1 pt up in chair at beginning and end of session Transfer 1 Trials/Comments 1 sit <> stand from recliner with WW Evelia for force production and eccentric control. despite VC's for hand placement pt pulls up on walker impulsively. Pt attempts to leave walker behind, requires verbal and tactile cues to back up to chair with walker. Transfers 2 Trials/Comments 2 stand <> sit on toilet with WW with use of grab bar with Evelia for froce production and eccentric control. pt requires repeated VC's for directional cues. pt originally attempts to sit on toilet before squared up to surface. Pt requires assist for pericare this date. Ambulation 1 Distance (ft) 1 15' + 30' Surface 1 Level tile Device 1 Wheeled walker Assistance 1 Minimum Assist Gait: Requires assist with 1 Maintaining balance Gait: Requires verbal cues to 1 Use assistive device safely;Prevent bumping into environmental barriers (hernandez/furniture) Quality of Gait 1 slow vahid, decreased step length and foot clearance bilaterally. decreased in stability during turns. requires assist to manage walker at times. VC's to keep walker close and to not pick it up. Other Comments Other PT Comments Pt is limited due to decreased cognition. pt is impulsive and demo's decreased safety awareness throughout. Pt responds better to short, simple instructions. Assessment Prognosis Good Problem List Gait deviations;Decreased strength;Decreased endurance;Impaired balance;Decreased mobility;Impaired judgement;Decreased safety awareness;Decreased cognition Plan Plan Continue with current plan;If this is the last note, consider this the discharge summary Recommendation/Plan PT Recommendation/Plan (S) Intermediate Facility Recommend SNF due to Unable to safely care for self in the home;Skilled therapy needed to address care for self in the home;Skilled therapy needed to address functional deficits;Skilled therapy needed for patient to return to prior level of independence PT Frequency 3-5x/wk Treatment/Interventions Balance Training;Bed mobility;Endurance training;Functional activity;Functional transfer training;Gait training;Strengthening;Therapeutic activity;Therapeutic exercise;Transfer training Education: Patient has been educated on the role of PT, safety , precautions, and mobility training. Education completed via explanation, teach back, and demonstration. Patient verbalized understanding, demonstrated understanding, and needs ongoing reinforcement Multi-Disciplinary Problems (from Physical Therapy) Active Problems Problem: PT Misc Start Date: 10/06/21 Goal Start Date Expected End Date End Date PT LT - [facility] 1 10/06/21 11/02/21 -- Goal Details: Pt will perform all OOB transfers with modified independence and least restrictive assistive device prior to discharge. Goal Start Date Expected End Date End Date PT [facility] - [facility] 2 10/06/21 11/02/21 -- Goal Details: Pt will ambulate 150ft with modified independence and least restrictive assistive device prior to discharge. Goal Start Date Expected End Date End Date PT [facility] - [facility] 3 10/06/21 11/02/21 -- Goal Details: Pt will increase Tinetti Balance Assessment score to 23/28 to demonstrate decreased fall risk prior to discharge. Cosigned by Kailyn Bryan DPT at 11/01/2021 4:04 PM CDT * Maikol Acosta MD - 10/31/2021 5:32 PM CDT Follow up note: ?? Pt seen and examined. Doing well. Feeding himself today! Appetite improved. Discharged on 10/12/2021. See Discharge summary by Dr. Currie. Awaiting insurance authorization and post- acute arrangements by KAL and SW * Maikol Acosta MD - 10/30/2021 3:44 PM CDT Follow up note: Pt seen and examined. Doing well. Too tired for therapy today. Appetite improved. Discharged on 10/12/2021. See Discharge summary by Dr. Currie. Awaiting insurance authorization and post- acute arrangements by CM and SW * Vy Zhang DPT - 10/30/2021 2:05 PM CDT Physical Therapy 10/30/21 1405 PT Last Visit Session Type Treatment PT Received On 10/30/21 Safe Environment Arm Band Checked;Chair Alarm placed and activated;Call Light within Reach;NotifiedRN Subjective Agreeable to Therapy Subjective Comment Pt agreeable upon the second attempt, initially refused due to fatigue. Family/Caregiver Present No Precautions Precautions Fall risk Pain Assessment Pain Assessment No/denies pain Pain Score 0 - No pain Clinical Progression Not changed Cognition Cognition Comments Pt is appropriate and participatory Orientation Oriented to person Static Sitting Balance Static Sitting-Level of Assistance Contact guard Static Standing Balance Static Standing-Balance Support Bilateral upper extremity supported;No upper extremity supported Static Standing-Level of Assistance Contact guard;Minimum assistance Static Standing-Comment/# of Minutes Without UE support: quiet stance, head turns, staggered stanceCGA/Evelia, posteriorly unsteady Dynamic Standing Balance Dynamic Standing-Balance Support Bilateral upper extremity supported Dynamic Standing-Level of Assistance Minimum assistance Dynamic Standing-Comments Requires Evelia to maintain balance with turn Bed Mobility 1 Bed Mobility Comments 1 Supine->sit Evelia for force production Transfer 1 Trials/Comments 1 Sit<>Stand CGA/Evelia for steadying support posteriorly and for control of descent speed to WW; completed from elevated EOB x 3 and from recliner with arms x 3 (Evelia for both) Ambulation 1 Distance (ft) 1 30', 15' Surface 1 Level tile Device 1 Wheeled walker Assistance 1 Minimum Assist Gait: Requires assist with 1 Maintaining balance (Directional assist) Gait: Requires verbal cues to 1 Use assistive device safely;Improve upright posture;Pace activity Quality of Gait 1 Shuffling gait, foot drag L>R Assessment Prognosis Good Plan Plan Continue with current plan;If this is the last note, consider this the discharge summary Recommendation/Plan PT Recommendation/Plan (S) Intermediate Facility Multi-Disciplinary Problems (from Physical Therapy) Active Problems Problem: PT Misc Start Date: 10/06/21 Goal Start Date Expected End Date End Date PT LTG - Misc 1 10/06/21 11/02/21 -- Goal Details: Pt will perform all OOB transfers with modified independence and least restrictive assistive device prior to discharge. Goal Start Date Expected End Date End Date PT LTG - Misc 2 10/06/21 11/02/21 -- Goal Details: Pt will ambulate 150ft with modified independence and least restrictive assistive device prior to discharge. Goal Start Date Expected End Date End Date PT LTG - Misc 3 10/06/21 11/02/21 -- Goal Details: Pt will increase Tinetti Balance Assessment score to 23/28 to demonstrate decreased fall risk prior to discharge. Education: Patient has been educated on the role of PT, safety , precautions, mobility training, and home exercise program. Education completed via explanation and teach back. Patient verbalized understanding and needs ongoing reinforcement * Je Williamson OT - 10/30/2021 9:55 AM CDT Occupational Therapy 10/30/21 0955 General OT Received On 10/30/21 OT Missed Visit Reason Patient declined * Vy Zhang DPT - 10/30/2021 9:14 AM CDT Physical Therapy 10/30/21 0907 General Session Type Treatment PT Received On 10/30/21 Safe Environment Arm Band Checked;Call Light within Reach;Notified RN;Chair Alarm placed and activated Subjective Comment Pt refused, spent 20 minutes attempting to convince patient to work with therapy. Precautions Precautions Fall risk * Maikol Acosta MD - 10/29/2021 2:17 PM CDT Follow up note: Pt seen and examined. Doing well. Eating better but needs a lot of assistance. Discharged on 10/12/[address] Currie. See discharge summary. Awaiting insurance authorization and post- acute arrangements by CM and SW. * Maikol Acosta MD - 10/28/2021 4:42 PM CDT Follow up note: Pt seen and examined. Discharged on 10/12/[address] Currie. See discharge summary. Awaiting insurance authorization for post acute placement x 16 days now. Doing well. No changes. * Ofelia Amor PTA - 10/27/2021 10:49 AM CDT Physical Therapy 10/27/21 1043 PT Last Visit PT Received On 10/27/21 PT Missed Visit Reason Other (comment) (In supine, LUE BP 178/128, RUE BP:182/124, RN notified, will attempt when BP is safe for mobility) * Max Cunningham MD - 10/27/2021 6:14 AM CDT General Medicine Daily Progress Name Jania Redman PCP Jean-Claude Salazar MD CC: f/u [facility] course: Discharge orders and summary completed 10/12 and awaiting auth. Since that time, I have spoke to to the answering her questions about his health issues. Hypertension medications have been adjustedupward. Sitter removed 10/26. Surveillance labs ordered 10/26 acceptable. Subjective Discussed with patient who state that he feels fine. Case also discussed with social work, relayingthat sitter has been removed. Objective Vitals: 24hr Min/Max: Temp Min: 36.4 ??C (97.5 ??F) Max: 36.5 ??C (97.7 ??F) Pulse Min: 71 Max: 82 BP Min: 157/107 Max: 178/82 Resp Min: 16 Max: 20 SpO2 Min: 96 % Max: 99 % Most Recent : Vitals: 10/26/211954 BP: (!) 157/107 Pulse: 80 Resp: 19 Temp: 36.5 ??C (97.7 ??F) SpO2: 98% No intake/output data recorded. No intake/output data recorded. Physical Exam: Gen: Pt in NAD Lungs CTA Heart: RRR Abd: +BS, Non Tender, Non distended Lower Ext: No cyanosis or clubbing, or edema Neuro: Alert, follows commands Psych: Not agitated or anxious Lab/Radiology/Diagnostic Review: Labs, Radiographs, and Medications Reviewed. Recent Labs Lab Units 10/26/21 0627 WBC K/cumm 4.8 HEMOGLOBIN g/dL 11.0* HEMATOCRIT % 33.7* Recent Labs Lab Units 10/27/21 0608 10/26/21 0627 SODIUM mmol/L -- 137 POTASSIUM PLASMA mmol/L -- 3.6 CHLORIDE mmol/L -- 102 CO2 mmol/L -- 27 GLUCOSE mg/dL -- 85 POC GLUCOSE MONITOR mg/dL 90 -- BUN SERUM mg/dL -- 14 CREATININE mg/dL -- 0.80 PHOSPHORUS PLASMA mg/dL -- 3.3 MAGNESIUM mg/dL -- 1.8 CALCIUM mg/dL -- 8.9 ALBUMIN g/dL -- 3.2* A/P Principal Problem: Sepsis due to COVID-19 (CMS/HCC) ([facility]) Active Problems: Chronic systolic heart failure (CMS/HCC) ([facility]) TBI (traumatic brain injury) (CMS/HCC) ([facility]) Orthostatic hypotension COPD (chronic obstructive pulmonary disease) (CMS/HCC) ([facility]) Benign prostatic hyperplasia with lower urinary tract symptoms Septic shock (CMS/HCC) ([facility]) Essential hypertension -- losartan increased to 50 mg -- amlodipine 5 mg added to start in am -- metoprolol 100 mg bid to continue TBI -- sitter removed and patient appears to be stable -- prn seroquel Sepsis due to covid 19 infection -- resolved and off of restrictions Await dc. Med rec for dc revised 10/27 Max Cunningham MD 10/27/2021 * Mark Anthony Stacy - 10/26/2021 1:14 PM CDT Nutrition Follow-up Progress Note Encounter Date: 10/26/21 1:14 PM Nutrition Progress Summary: Patient is a 71 y.o. male. Admit Dx: Disorientation [R41.0] Hypothermia, initial encounter [T68.XXXA] Septic shock (CMS/HCC) ([facility]) [A41.9, R65.21] Pneumonia of right lower lobe due to infectious organism [J18.9] Hypotension, unspecified hypotension type [I95.9] Sepsis due to COVID-19 (CMS/HCC) ([facility]) [U07.1, A41.89]. Admitted on 10/04/2021. Patient's intake is adequate. Objective Dietary Orders (From admission, onward) Start Ordered 10/11/21 0700 Oral Nutrition Supplements Select Supplement: Ensure Enlive - Any Flavor With Breakfast and Dinner Question: Select Supplement: Answer: Ensure Enlive - Any Flavor 10/10/21 1742 10/10/21 1151 Adult Diet Regular Diet effective now Question: ([facility]) Diet type Answer: Regular 10/10/21 1151 Anthropometrics Weight: 80.6 kg (177 lb 11.1 oz) Admission Weight : 80.6 kg Weight Change: -0.14 kg (-0.30 lbs) IBW/kg (Calculated) : 78 kg Height: 180.3 cm (5' 11 ) Weight in (lb) to have BMI = 25: 178.9 BMI (Calculated): 24.8 No intake or output data in the 24 hours ending 10/26/21 1314 Medications and Lab Review: Scheduled Meds: aspirin, 81 mg, oral, Daily benzonatate, 100 mg, oral, TID enoxaparin, 40 mg, subcutaneous, Daily-2100 folic acid, 1 mg, oral, Daily losartan, 25 mg, oral, Daily metoprolol, 100 mg, oral, BID multivitamin with minerals, 1 tablet, oral, Daily pantoprazole DR, 40 mg, oral, Daily pravastatin, 40 mg, oral, Daily terazosin, 10 mg, oral, Nightly thiamine, 100 mg, oral, QAM Continuous Infusions: PRN Meds: ??? acetaminophen ??? HYDROcodone-acetaminophen ??? ondansetron ODT OR ondansetron ??? QUEtiapine Sodium Date Value Ref Range Status 10/26/2021 137 135 - 145 mmol/L Final Potassium, pl Date Value Ref Range Status 10/26/2021 3.6 3.3 - 4.9 mmol/L Final BUN Date Value Ref Range Status 10/26/2021 14 8 - 25 mg/dL Final Creatinine Date Value Ref Range Status 10/26/2021 0.80 0.80 - 1.30 mg/dL Final Phosphorus, pl Date Value Ref Range Status 10/26/2021 3.3 2.3 - 4.5 mg/dL Final Albumin Date Value Ref Range Status 10/26/2021 3.2 (L) 3.5 - 5.0 g/dL Final Magnesium Date Value Ref Range Status 10/26/2021 1.8 1.4 - 2.5 mg/dL Final Calcium Date Value Ref Range Status 10/26/2021 8.9 8.5 - 10.3 mg/dL Final Lab Results Component Value Date HGBA1C 5.2 06/12/2021 Nursing Assessment: Last BM Date: 10/24/21 Bowel Sounds (All Quadrants): Present Lew Scale Score: 18 Skin Integrity: Surgical incision Nutrition Needs Calculations: Calculated Energy Needs Using Equations Weight: 80.6 kg (177 lb 11.1 oz) Height: 180.3 cm (5' 11 ) Estimated Protein Needs Type of Weight Used for Estimated Protein : Current Protein Needs Based on g/k.2 Total Protein Estimated Needs (gm): 96.72 Kcal/kg Type of Weight Used for Estimated Kcals: Current Kcal/k Total Kcal/kg Estimated Needs : 2014 Impression: Pt seen for follow-up. Chart history shows 75-1100% meal intake. Spoke with nurse who states he eats all of his food and drinks his Ensure Enlive. SW is working on SNF placement. No nutritional concerns at this time. Plan: Continue Ensure Enlive BID. Monitor intake and plan of care. Current Nutrition Issues: Nutrition Diagnosis 1: Predicted suboptimal energy intake Related to: Other (comment) Evidenced by:Physical finding Nutrition Plan: Interventions: Medical food supplement Monitoring and Evaluation: Plan of care, Supplement tolerance, PO intake Goals: Oral intake to meet 75% estimated nutritional needs by next assessment Diet Instructions Adult Discharge Diet Diet Type: Return to previous diet Mark Anthony Stacy, [employer] Cosigned by Edie Sidhu RD at 10/26/2021 1:54 PM CDT * Mirna Gomez, PT - 10/26/2021 11:28 AM CDT Physical Therapy 10/26/21 1128 PT Last Visit Session Type Treatment PT Received On 10/26/21 Safe Environment Arm Band Checked;Chair Alarm placed and activated;Call Light within Reach;NotifiedRN Subjective Agreeable to Therapy Family/Caregiver Present No Precautions Precautions Bed/Chair Alarm;Fall risk RLE Weight Bearing WBAT Activity Tolerance Activity Tolerance Comments Pre activity vitals BP 160/94, HR 78, SpO2 100%. VS stable throughout. Pain Assessment Pain Assessment No/denies pain Clinical Progression Not changed Cognition Cognition Comments Pt reports we are on a boat and he has been swimming this morning. Reoriented tocurrent location and situation. Arousal/Alertness Alert;Appropriate responses to stimuli Orientation Oriented to person Following Commands Follows one step commands with increased time Compliance/Behavior Easy to engage Dynamic Standing Balance Dynamic Standing-Comments Pt engaged in standing marching with WW and CGA prior to transferring. Seated Seated-Exercises Lower extremity Reps/Sets x10 Seated-Exercise Comments Pt engaged in seated LE strengthening exercises including marching, LAQs, ankle pumps, and glute sets x10. Pt is easily distracted and requires cues to continue with exercises. Bed Mobility 1 Bed Mobility From 1 Supine Bed Mobility Type 1 To Bed Mobility to 1 Edge of bed Level of Assistance 1 Contact Guard Assist Bed Mobility Comments 1 Supine>EOB with CGA for safety. Pt able to scoot to EOB independently. Transfer 1 Transfer From 1 Sit Transfer Type 1 To and from Transfer to 1 Stand Technique 1 Sit to stand;Stand to sit Transfer Device 1 Wheeled walker Transfer Level of Assistance 1 Minimum Assist Trials/Comments 1 Sit<>stand with WW and minimal assist for dynamic balance. Pt provided VCs for forward lean to use momentum, relies on LEs pushing posteriorly against edge of surface. Transfers 2 Transfer From 2 Bed Transfer Type 2 To Transfer to 2 Chair with arms Technique 2 Sit to stand;Stand to sit Transfer Device 2 Wheeled walker Transfer Level of Assistance 2 Contact Guard Assist Trials/Comments 2 Bed>chair with WW and CGA for safety. Ambulation 1 Distance (ft) 1 30ft Surface 1 Level tile Device 1 Wheeled walker Assistance 1 Contact Guard Assist;Minimum Assist Gait: Requires assist with 1 Maintaining balance Gait: Requires verbal cues to 1 Use assistive device safely;Improve upright posture;Increase step length;Pace activity Quality of Gait 1 slow vahid, shuffling steps, narrow CHERRY, unsteady with turns, flexed posture Ambulation Comments 1 Pt ambulated 30ft with WW and CGA for safety, minimal assist for turns due tounsteadiness. Pt demonstrates poor WW use and tries to pick it up at times. VCs for safety. Other Comments Other PT Comments Pt limited due to impaired cognition, decreased dynamic balance, and decreased LEstrength. Pt required minimal assist for transfers and ambulation with WW. Pt pleasant and willing to participate in therapy this date. Assessment Prognosis Good Plan Plan Continue with current plan;If this is the last note, consider this the discharge summary Recommendation/Plan PT Recommendation/Plan (S) Intermediate Facility Recommend SNF due to Skilled therapy needed to address functional deficits;Skilled therapy needed for patient to return to prior level of independence PT Frequency 3-5x/wk Progress Progressing toward goals Education: Patient has been educated on the role of PT, safety , precautions, and mobility training. Education completed via explanation and demonstration. Patient verbalized understanding and demonstrated understanding Multi-Disciplinary Problems (from Physical Therapy) Active Problems Problem: PT [facility] Start Date: 10/06/21 Goal Start Date Expected End Date End Date PT [facility] 1 10/06/21 11/02/21 -- Goal Details: Pt will perform all OOB transfers with modified independence and least restrictive assistive device prior to discharge. Goal Start Date Expected End Date End Date PT [facility] - [facility] 2 10/06/21 11/02/21 -- Goal Details: Pt will ambulate 150ft with modified independence and least restrictive assistive device prior to discharge. Goal Start Date Expected End Date End Date PT [facility] - [facility] 3 10/06/21 11/02/21 -- Goal Details: Pt will increase Tinetti Balance Assessment score to 23/28 to demonstrate decreased fall risk prior to discharge. * Max Cunningham MD - 10/26/2021 6:11 AM CDT General Medicine Daily Progress Name Jania Redman PCP Jean-Claude Salazar MD CC: f/u covid 19 Subjective Discussed with patient who denies any complaints Objective Vitals: 24hr Min/Max: Temp Min: 36.4 ??C (97.5 ??F) Max: 36.7 ??C (98 ??F) Pulse Min: 79 Max: 85 BP Min: 123/62 Max: 173/110 Resp Min: 16 Max: 16 SpO2 Min: 96 % Max: 98 % Most Recent : Vitals: 10/26/21 0407 BP: (!) 173/110 Pulse: 79 Resp: 16 Temp: 36.4 ??C (97.5 ??F) SpO2: 96% No intake/output data recorded. No intake/output data recorded. Physical Exam: Gen: Pt in NAD Lungs CTA Heart: RRR Abd: +BS, Non Tender, Non distended Lower Ext: No cyanosis or clubbing, or edema Neuro: Alert Psych: Not agitated or anxious Lab/Radiology/Diagnostic Review: Labs, Radiographs, and Medications Reviewed. Recent Labs Lab Units 10/19/21 0637 WBC K/cumm 6.2 HEMOGLOBIN g/dL 10.5* HEMATOCRIT % 33.3* Recent Labs Lab Units 10/26/21 0606 10/20/21 0550 10/19/21 0637 SODIUM mmol/L -- -- 140 POTASSIUM PLASMA mmol/L -- -- 3.8 CHLORIDE mmol/L -- -- 105 CO2 mmol/L -- -- 25 GLUCOSE mg/dL -- -- 87 POC GLUCOSE MONITOR mg/dL 87 < > -- BUN SERUM mg/dL -- -- 18 CREATININE mg/dL -- -- 0.76* CALCIUM mg/dL -- -- 8.6 < > = values in this interval not displayed. A/P Principal Problem: Sepsis due to COVID-19 ([facility]) ([facility]) Active Problems: Chronic systolic heart failure ([facility]) ([facility]) TBI (traumatic brain injury) ([facility]) ([facility]) Orthostatic hypotension COPD (chronic obstructive pulmonary disease) ([facility]) ([facility]) Benign prostatic hyperplasia with lower urinary tract symptoms Septic shock ([facility]) ([facility]) -- continue to await dc -- prn seroquel remains available if needed -- agree with nursing to discontinue sitter Max Cunningham MD 10/26/2021 * Iqra Aquino, OT - 10/25/2021 2:33 PM CDT Occupational Therapy 10/25/21 1414 General Session Type Treatment OT Received On 10/25/21 Safe Environment Arm Band Checked;Bed Alarm placed and activated;Call Light within Reach;Patient found in Supine Subjective Other (somewhat agreeable with encouragement.) Subjective Comment I'm doing fine here in the bed. Family/Caregiver Present No Precautions Precautions Bed/Chair Alarm;Fall risk Weight Bearing Restrictions No Pain Assessment Pain Assessment No/denies pain Pain Score 0 - No pain Patient's Stated Pain Goal No pain Grooming Grooming: Where assessed Supine, bed Grooming: Level of assistance Standby Assist Grooming: Assistance with Wash/dry face Bed Mobility Bed Mobility No Bed Mobility 1 Bed Mobility Comments 1 Pt declines any OOB at this time. States he prefers to just sleep Transfers Transfer No Transfer 1 Trials/Comments 1 Pt declines to move from supine position. Therapeutic Exercise - ROM/STRENGTH ROM/STRENGTH (AAROM performed in 2 planes prior to patient declining further participation.) Cognition Overall Cognitive Status Impaired Arousal/Alertness Lethargic;Delayed responses to stimuli Attention Span Distractability Orientation Oriented to person Compliance/Behavior Reluctant to participate Additional Activities Additional Activities Comments Pt is quite lethargic and not wanting to move from supine position in bed with lots of encouragement re: reason movement would be beneficial for him. Activity Tolerance Endurance Tolerates 10 - 20 min activity with multiple rests Activity Tolerance Comments Pt with difficulty engaging and participating in activity. Other Comments Comments Pt is pleasant but not wanting to sit up or get out of bed at this time even with encouragement. Assessment Prognosis Good Problem List Decreased endurance;Decreased cognition Plan Plan Continue with current plan;If this is the last note, consider this the discharge summary Recommendation/Plan OT Recommendation (S) Intermediate Facility Patient at high risk for Falls;Readmission;Injury due to impaired cognition;Injury due to decreasedability to care for self;Injury due to reduced functional status OT Frequency 2-3x/wk Progress Slow progress, decreased activity tolerance Education: Patient has been educated on the role of OT, safety, precautions, ADL training, and mobility training. Education completed via verbal instruction and return demonstration. Patient verbalized understanding, demonstrated understanding, and needs ongoing reinforcement Multi-Disciplinary Problems (from Occupational Therapy) Active Problems Problem: OT Misc Start Date: 10/05/21 Goal Start Date Expected End Date End Date Pt. will complete total body dressing SBA 10/05/21 10/19/21 -- Goal Start Date Expected End Date End Date Pt. will complete grooming SBA 10/05/21 10/19/21 -- Goal Start Date Expected End Date End Date Pt. will complete toileting SBA 10/05/21 10/19/21 -- Goal Start Date Expected End Date End Date Pt. will complete bathing with SBA 10/05/21 10/19/21 -- * Saba Knight, PT - 10/25/2021 9:40 AM CDT Physical Therapy 10/25/21 0940 PT Last Visit Session Type Other (comment) PT Received On 10/25/21 PT Missed Visit Reason Patient declined (Pt refused participation in PT this date despite multiple attempts by therapist to explain purposeand benefits. Will continue to follow.) * Max Cunningham MD - 10/25/2021 6:39 AM CDT General Medicine Daily Progress Name Jania Redman PCP Jean-Claude Salazar MD CC: f/u covid Subjective Discussed with patient and social work. Patient denies and care team. Lengthy discussion with .I have spent greater than 35 minutes with this patient, and more than 50% of that time has been in direct patient contact and care. Objective Vitals: 24hr Min/Max: Temp Min: 36.3 ??C (97.3 ??F) Max: 36.9 ??C (98.4 ??F) Pulse Min: 76 Max: 104 BP Min: 157/96 Max: 186/118 Resp Min: 16 Max: 19 SpO2 Min: 95 % Max: 99 % Most Recent : Vitals: 10/25/21 0333 BP: (!) 184/109 Pulse: 76 Resp: Temp: SpO2: 95% I/O last 2 completed shifts: In: 120 [P.O.:120] Out: 0 No intake/output data recorded. Physical Exam: Gen: Pt in NAD Lungs CTA Heart: RRR Abd: +BS, Non Tender, Non distended Lower Ext: No cyanosis or clubbing, or edema Neuro: Alert, able to follow commands Psych: Not agitated or anxious Lab/Radiology/Diagnostic Review: Labs, Radiographs, and Medications Reviewed. Recent Labs Lab Units 10/19/21 0637 10/18/21 0734 WBC K/cumm 6.2 5.6 HEMOGLOBIN g/dL 10.5* 10.3* HEMATOCRIT % 33.3* 30.9* Recent Labs Lab Units 10/25/21 0608 10/20/21 0550 10/19/21 0637 SODIUM mmol/L -- -- 140 POTASSIUM PLASMA mmol/L -- -- 3.8 CHLORIDE mmol/L -- -- 105 CO2 mmol/L -- -- 25 GLUCOSE mg/dL -- -- 87 POC GLUCOSE MONITOR mg/dL 86 < > -- BUN SERUM mg/dL -- -- 18 CREATININE mg/dL -- -- 0.76* CALCIUM mg/dL -- -- 8.6 < > = values in this interval not displayed. A/P Principal Problem: Sepsis due to COVID-19 (CMS/HCC) ([facility]) Active Problems: Chronic systolic heart failure (CMS/HCC) ([facility]) TBI (traumatic brain injury) (CMS/HCC) ([facility]) Orthostatic hypotension COPD (chronic obstructive pulmonary disease) (CMS/HCC) ([facility]) Benign prostatic hyperplasia with lower urinary tract symptoms Septic shock (CMS/HCC) ([facility]) -- add seroquel 25 mg po q 6 hours prnfor agitation to see if it can help remove sitter -- add low dose losartan for ongoing htn -- await dispo planning -- recheck labs Max Cunningham MD 10/25/2021 * Max Cunningham MD - 10/24/2021 6:14 AM CDT General Medicine Daily Progress Name Jania Redman PCP Jean-Claude Salazar MD CC: f/u covid Subjective Discussed with patient who states that he feels well and is hoping for dc soon Objective Vitals: 24hr Min/Max: Temp Min: 36.5 ??C (97.7 ??F) Max: 36.9 ??C (98.4 ??F) Pulse Min: 73 Max: 90 BP Min: 129/90 Max: 174/127 Resp Min: 18 Max: 18 SpO2 Min: 97 % Max: 100 % Most Recent : Vitals: 10/23/21 2359 BP: 129/90 Pulse: 90 Resp: 18 Temp: 36.5 ??C (97.7 ??F) SpO2: 97% I/O last 2 completed shifts: In: 222 [P.O.:222] Out: 0 No intake/output data recorded. Physical Exam: Gen: Pt in NAD Lungs CTA Heart: RRR Abd: +BS, Non Tender, Non distended Lower Ext: No cyanosis or clubbing, or edema Neuro: Alert oriented x 3 Psych: Not agitated or anxious Lab/Radiology/Diagnostic Review: Labs, Radiographs, and Medications Reviewed. Recent Labs Lab Units 10/19/21 0637 10/18/21 0734 WBC K/cumm 6.2 5.6 HEMOGLOBIN g/dL 10.5* 10.3* HEMATOCRIT % 33.3* 30.9* Recent Labs Lab Units 10/24/21 0608 10/20/21 0550 10/19/21 0637 SODIUM mmol/L -- -- 140 POTASSIUM PLASMA mmol/L -- -- 3.8 CHLORIDE mmol/L -- -- 105 CO2 mmol/L -- -- 25 GLUCOSE mg/dL -- -- 87 POC GLUCOSE MONITOR mg/dL 82 < > -- BUN SERUM mg/dL -- -- 18 CREATININE mg/dL -- -- 0.76* CALCIUM mg/dL -- -- 8.6 < > = values in this interval not displayed. A/P Principal Problem: Sepsis due to COVID-19 (CMS/HCC) ([facility]) Active Problems: Chronic systolic heart failure (CMS/HCC) ([facility]) TBI (traumatic brain injury) (CMS/HCC) ([facility]) Orthostatic hypotension COPD (chronic obstructive pulmonary disease) (CMS/HCC) ([facility]) Benign prostatic hyperplasia with lower urinary tract symptoms Septic shock (CMS/HCC) ([facility]) -- awaiting dispo plan -- will plan to contact tomorrow to discuss care Max Cunningham MD 10/24/2021 * Miguel Flores MD - 10/23/2021 1:26 PM CDT Orthopedic Hip Progress Note Assessment/Plan Status post-right hip IM nail: Doing OK postoperatively. This is the most alert I have seen him andhe denies pain in his right hip currently Pain Relief: Complete At 2 weeks Jania's fracture shows excellent alignment on his x-ray. His wound appears to be healingnicely. His alice can be removed and no further dressing as necessary. He may be discharged from Orthopedic standpoint and follow up with me in 1 month for repeat x-rays he may be weight-bearing astolerated continue to use after physical therapy for gait training Activity: ad mireille Weight Bearing: WBAT LOS: 19 days Subjective Post-Operative Day: 1 post-right hip IM nail Systemic or Specific Complaints: No Complaints Objective Vital signs in last 24 hours: Temp: [36.4 ??C (97.5 ??F)-36.9 ??C (98.4 ??F)] 36.9 ??C (98.4 ??F) Pulse: [73-87] 85 Resp: [16-18] 18 BP: (147-184)/(88-127) 147/88 General: appears stated age and cooperative Neurovascular: Wiggle toes Capillary refill: Normal Wound: Healing nicely with alice in place Range of Motion: Limited flexion DVT Exam: No evidence of DVT seen on physical exam. Data Review CBC: Recent Labs Lab Units 10/19/21 0637 WBC K/cumm 6.2 RBC M/cumm 3.45* HEMOGLOBIN g/dL 10.5* HEMATOCRIT % 33.3* Miguel Flores MD Date: 10/23/2021 Time: 1:26 PM * Je Williamson, OT - 10/23/2021 9:05 AM CDT Occupational Therapy 10/23/21 0905 General Session Type Treatment OT Received On 10/23/21 Safe Environment Arm Band Checked;Bed Alarm placed and activated;Call Light within Reach;Notified flare stitcher/Caregiver Present No Precautions Precautions Bed/Chair Alarm;Fall risk Pain Assessment Pain Score 0 - No pain Clinical Progression Not changed Grooming Grooming: Where assessed (refused) LE Dressing LE Dressing: Where assessed (refused) Bed Mobility 1 Bed Mobility Comments 1 Upon OT entry pt. found supine in bed, initially agreeable to getting OOB to recliner. Vitals: 123/77, 94 bpm, 97%. Pt. known to struggle at times with motor planning; attempted to cue pt. to complete supine > sit verbally without success. OT assisted pt. bring LEs to side of bed. OT then had pt. take therapist's hands to pull up on, however, pt. then refuses. Pt. continues to refuse all OOB activity & suggested ADL activity. Pt. noted to be incontinent of urine & laying on wet pads, however. OT informed pt. he will need to roll [id number] so pad could be changed: L roll minimum/CGA, R roll moderate assist. Pt. continued to refuse activity beyond this, thus, session ended Cognition Overall Cognitive Status Impaired Orientation Oriented to person Insight Not aware of deficits Compliance/Behavior Reluctant to participate Plan Plan If this is the last note, consider this the discharge summary Recommendation/Plan OT Recommendation (S) Intermediate Facility OT Frequency 2-3x/wk Education: Patient has been educated on the role of OT, safety, precautions, ADL training, mobilitytraining, and body mechanics. Education completed via verbal instruction. Patient demonstrates no evidence of learning Multi-Disciplinary Problems (from Occupational Therapy) Active Problems Problem: OT Misc Start Date: 10/05/21 Goal Start Date Expected End Date End Date Pt. will complete total body dressing SBA 10/05/21 10/19/21 -- Goal Start Date Expected End Date End Date Pt. will complete grooming SBA 10/05/21 10/19/21 -- Goal Start Date Expected End Date End Date Pt. will complete toileting SBA 10/05/21 10/19/21 -- Goal Start Date Expected End Date End Date Pt. will complete bathing with SBA 10/05/21 10/19/21 -- * Max Cunningham MD - 10/23/2021 6:47 AM CDT General Medicine Daily Progress Name Jania Redman PCP Jean-Claude Salazar MD CC: f/u covid 19 Subjective Discussed with patient and social work. Continue to wait for placement Objective Vitals: 24hr Min/Max: Temp Min: 36.4 ??C (97.5 ??F) Max: 36.7 ??C (98.1 ??F) Pulse Min: 73 Max: 101 BP Min: 153/99 Max: 184/115 Resp Min: 16 Max: 18 SpO2 Min: 99 % Max: 100 % Most Recent : Vitals: 10/22/21 2310 BP: 153/99 Pulse: 73 Resp: 18 Temp: 36.7 ??C (98.1 ??F) SpO2: 99% I/O last 2 completed shifts: In: - Out: 620 [Urine:620] No intake/output data recorded. Physical Exam: Gen: Pt in NAD, chronically ill appearing Lungs CTA Heart: RRR Abd: +BS, Non Tender, Non distended Lower Ext: No cyanosis or clubbing, or edema Neuro: Alert oriented x 3 Psych: Not agitated or anxious Lab/Radiology/Diagnostic Review: Labs, Radiographs, and Medications Reviewed. Recent Labs Lab Units 10/19/21 0637 10/18/21 0734 WBC K/cumm 6.2 5.6 HEMOGLOBIN g/dL 10.5* 10.3* HEMATOCRIT % 33.3* 30.9* Recent Labs Lab Units 10/23/21 0611 10/20/21 0550 10/19/21 0637 SODIUM mmol/L -- -- 140 POTASSIUM PLASMA mmol/L -- -- 3.8 CHLORIDE mmol/L -- -- 105 CO2 mmol/L -- -- 25 GLUCOSE mg/dL -- -- 87 POC GLUCOSE MONITOR mg/dL 84 < > -- BUN SERUM mg/dL -- -- 18 CREATININE mg/dL -- -- 0.76* CALCIUM mg/dL -- -- 8.6 < > = values in this interval not displayed. A/P Principal Problem: Sepsis due to COVID-19 (CMS/HCC) ([facility]) Active Problems: Chronic systolic heart failure (CMS/HCC) (HCC) TBI (traumatic brain injury) (CMS/HCC) ([facility]) Orthostatic hypotension COPD (chronic obstructive pulmonary disease) (CMS/HCC) ([facility]) Benign prostatic hyperplasia with lower urinary tract symptoms Septic shock (CMS/HCC) ([facility]) -- continue to await placement Max Cunningham MD 10/23/2021 * Max Cunningham MD - 10/22/2021 6:02 AM CDT General Medicine Daily Progress Name Jania Redman PCP Jean-Claude Salazar MD CC: f/u covid 19 Subjective Discussed with patient who is a poor historian. Per review of medical record, patient awaits snf Objective Vitals: 24hr Min/Max: Temp Min: 36.4 ??C (97.5 ??F) Max: 36.5 ??C (97.7 ??F) Pulse Min: 81 Max: 91 BP Min: 155/102 Max: 176/110 Resp Min: 18 Max: 18 SpO2 Min: 95 % Max: 100 % Most Recent : Vitals: 10/22/21 0123 BP: (!) 155/102 Pulse: 84 Resp: 18 Temp: 36.5 ??C (97.7 ??F) SpO2: 95% I/O last 2 completed shifts: In: - Out: 600 [Urine:600] No intake/output data recorded. Physical Exam: Gen: Pt in NAD, appears chronically ill Lungs coarse breath sounds that clear with cough Heart: RRR Abd: +BS, Non Tender, Non distended Lower Ext: No cyanosis or clubbing, or edema Neuro: Alert oriented x 3 Psych: Not agitated or anxious Lab/Radiology/Diagnostic Review: Labs, Radiographs, and Medications Reviewed. Recent Labs Lab Units 10/19/21 0637 10/18/21 0734 10/16/21 0613 WBC K/cumm 6.2 5.6 6.7 HEMOGLOBIN g/dL 10.5* 10.3* 9.2* HEMATOCRIT % 33.3* 30.9* 28.0* Recent Labs Lab Units 10/21/21 0558 10/20/21 0550 10/19/21 0637 SODIUM mmol/L -- -- 140 POTASSIUM PLASMA mmol/L -- -- 3.8 CHLORIDE mmol/L -- -- 105 CO2 mmol/L -- -- 25 GLUCOSE mg/dL -- -- 87 POC GLUCOSE MONITOR mg/dL 85 < > -- BUN SERUM mg/dL -- -- 18 CREATININE mg/dL -- -- 0.76* CALCIUM mg/dL -- -- 8.6 < > = values in this interval not displayed. A/P Principal Problem: Sepsis due to COVID-19 ([facility]/HCC) ([facility]) Active Problems: Chronic systolic heart failure ([facility]) ([facility]) TBI (traumatic brain injury) ([facility]) ([facility]) Orthostatic hypotension COPD (chronic obstructive pulmonary disease) ([facility]) ([facility]) Benign prostatic hyperplasia with lower urinary tract symptoms Septic shock ([facility]) ([facility]) -- dc when okayed with social work Max Cunningham MD 10/22/2021 * Max Cunningham MD - 10/21/2021 8:35 AM CDT General Medicine Daily Progress Name Jania Redman PCP Jean-Claude Salazar MD CC: f/u covid 19 Subjective Patient is nonverbal. Awaiting placement Objective Vitals: 24hr Min/Max: Temp Min: 36.9 ??C (98.4 ??F) Max: 36.9 ??C (98.4 ??F) Pulse Min: 78 Max: 87 BP Min: 132/78 Max: 164/96 Resp Min: 18 Max: 18 SpO2 Min: 98 % Max: 99 % Most Recent : Vitals: 10/21/21 0031 BP: 164/96 Pulse: 87 Resp: 18 Temp: SpO2: 99% I/O last 2 completed shifts: In: - Out: 600 [Urine:600] No intake/output data recorded. Physical Exam: Gen: Pt in NAD Lungs CTA Heart: RRR Abd: +BS, Non Tender, Non distended Lower Ext: No cyanosis or clubbing, or edema Neuro: Alert oriented x 3 Psych: Not agitated or anxious Lab/Radiology/Diagnostic Review: Labs, Radiographs, and Medications Reviewed. Recent Labs Lab Units 10/19/21 0637 10/18/21 0734 10/16/21 0613 WBC K/cumm 6.2 5.6 6.7 HEMOGLOBIN g/dL 10.5* 10.3* 9.2* HEMATOCRIT % 33.3* 30.9* 28.0* Recent Labs Lab Units 10/21/21 0558 10/20/21 0550 10/19/21 0637 SODIUM mmol/L -- -- 140 POTASSIUM PLASMA mmol/L -- -- 3.8 CHLORIDE mmol/L -- -- 105 CO2 mmol/L -- -- 25 GLUCOSE mg/dL -- -- 87 POC GLUCOSE MONITOR mg/dL 85 < > -- BUN SERUM mg/dL -- -- 18 CREATININE mg/dL -- -- 0.76* CALCIUM mg/dL -- -- 8.6 < > = values in this interval not displayed. A/P Principal Problem: Sepsis due to COVID-19 (CMS/HCC) (HCC) Active Problems: Chronic systolic heart failure (CMS/HCC) (HCC) TBI (traumatic brain injury) (CMS/HCC) (HCC) Orthostatic hypotension COPD (chronic obstructive pulmonary disease) (CMS/HCC) (HCC) Benign prostatic hyperplasia with lower urinary tract symptoms Septic shock (CMS/HCC) (HCC) -- await placement Max Cunningham MD 10/21/2021 * Sid Anguiano, DPT - 10/20/2021 11:40 AM CDT Physical Therapy 10/20/21 1140 PT Last Visit Session Type Treatment PT Received On 10/20/21 Safe Environment Patient found in Supine;Arm Band Checked;Chair Alarm placed and activated;Call Light within Reach;Notified RN;Overbed Table within Reach Subjective Agreeable to Therapy Family/Caregiver Present No Precautions Precautions Bed/Chair Alarm;Fall risk Activity Tolerance Activity Tolerance Comments Vitals stable on room air, seated rest breaks as requested by pt when fatigued; Pt has difficulty giving feedback to therapist due to dementia Pain Assessment Pain Assessment No/denies pain Pain Score 0 - No pain Clinical Progression Not changed Cognition Cognition Comments [place], limited vision Overall Cognitive Status Impaired Arousal/Alertness Alert (sleepy, often closes eyes with seated rest in chair when not engaged by therapist) Attention Span Distractability;Attends with cues to redirect Memory Decreased short term memory Orientation Oriented to person Following Commands Follows one step commands with repetition Safety Judgment Decreased awareness of need for safety Awareness of Errors Assistance required to identify errors made;Assistance required to correct errors made;Decreased awareness of errors Insight Not aware of deficits Problem Solving Assistance required to identify errors made;Assistance required to generate solutions;Assistance required to implement solutions Compliance/Behavior Easy to engage Supine Supine-Exercise Comments Max verbal and tactile cues: AAROM/AROM SLR, heel slide, SAQ x 6-10 reps Seated Seated-Exercise Comments Max verbal and tactile cues AAROM/AROM hip flexion, LAQ + resistance x 10-15 reps Standing Standing-Exercise Comments Max verbal/tactile cues standing june with 2WW support 2 x 10-12, cues for widening CHERRY Bed Mobility 1 Bed Mobility Comments 1 Supine>side-lying L>sitting EOB with HOB minimally elevated and minimal assist x 1 + min-mod verbal/tactile cues for completing movement (physical assist mostly requiredd/t cognitive deficits and difficulty understanding cues as opposed to weakness alone, difficult todifferentiate between pt limitation due to weakness vs cognition) Transfer 1 Trials/Comments 1 Sit<>stand from EOB with 2WW and max cues for hand placement on every stand, ~min-mod assist x 1 for force production, anterior lean in order to complete stand; Bed>chair 90d stand pivot with 2WW minimal assist/CGA + max verbal/tactile cues for safe mgmt of 2WW, safe alignment to surface, hand placement and controlled descent Transfers 2 Trials/Comments 2 Sit<>Stand multiple times to complete functional mobility and gait assessments in hallway. Also completes sit<>Stand sets 2 x 5 reps min-mod assist + ongoing max cues for hand placement to/from stand Ambulation 1 Ambulation Comments 1 Ambulates ~50'-60' x 2 with 2WW and minimal assist + wc follow + ongoing continuous cues for widening CHERRY, staying focused on task due to distractability, maintaining appropriate speed with 2WW and forward progression, etc Assessment Prognosis Good Problem List Gait deviations;Decreased strength;Decreased endurance;Impaired balance;Decreased mobility;Decreased cognition;Impaired judgement;Decreased safety awareness Barriers to Discharge Current Mobility Status;Cognition Plan Plan Continue with current plan;If this is the last note, consider this the discharge summary Recommendation/Plan PT Recommendation/Plan (S) Intermediate Facility Recommend SNF due to Skilled therapy needed to address functional deficits PT Frequency 3-5x/wk Treatment/Interventions Balance Training;Bed mobility;Endurance training;Equipment eval/education;Functional activity;Functional transfer training;Gait training;Neuromuscular re-education;Stair traini ng;Strengthening;Therapeutic activity;Therapeutic exercise;Transfer training Progress Slow progress, cognitive deficits Education: Patient has been educated on the role of PT, safety , precautions, and mobility training. Education completed via explanation, teach back, and demonstration. Patient needs ongoing reinforcement and demonstrates no evidence of learning Multi-Disciplinary Problems (from Physical Therapy) Active Problems Problem: PT [facility] Start Date: 10/06/21 Goal Start Date Expected End Date End Date PT LTG - [facility] 1 10/06/21 10/20/21 -- Goal Details: Pt will perform all OOB transfers with modified independence and least restrictive assistive device prior to discharge. Goal Start Date Expected End Date End Date PT [facility] - [facility] 2 10/06/21 10/20/21 -- Goal Details: Pt will ambulate 150ft with modified independence and least restrictive assistive device prior to discharge. Goal Start Date Expected End Date End Date PT LTG - [facility] 3 10/06/21 10/20/21 -- Goal Details: Pt will increase Tinetti Balance Assessment score to 23/28 to demonstrate decreased fall risk prior to discharge. * Jennifer Gao MD - 10/20/2021 7:24 AM CDT General Medicine Daily Progress Note 71 y.o.??year old male??with a pmhx of A-fib on no anticoagulation due to prior SAH, CHF, HTN, legally blind, A&Ox1 at baseline??who presented after being found unresponsive in his wheelchair while at home. In the ED here, he presented with vitals notable for systolic in the 50s and bradycardia. Started on sepsis protocol, given 30 cc/kg fluids. BP improved and admitted to the floors.??He was tested positive for COVID-19 and sepsis is presumably due to viral etiology. He was given Remdesivir but no steroid because pt is not hypoxic. The patient had another unwitnessed fall here in the hospital on 10/07 and was found to have a right femur fracture.??He underwent??right??Das and Nephcece Trigen Intertan trochanteric nailing of intertrochanteric femur fracture??10/08. He??remains oriented to self only. He has intermittent complaints of hip pain. He has been resting comfortably. Discussed DVT PPx with Dr. Flores. OK with Car[facility]. He was discharged to SNF on 10/12/21 and remains stable for discharge. Sitting up in bed on my visit this a.m. no apparent acute distress is able to answer some simple questions following commands denies any pain Remains on room air Ongoing eval for placement Objective Vitals: 24hr Min/Max: Temp Min: 36.7 ??C (98.1 ??F) Max: 37.8 ??C (100 ??F) Pulse Min: 62 Max: 85 BP Min: 122/82 Max: 156/106 Resp Min: 18 Max: 20 SpO2 Min: 96 % Max: 100 % Most Recent : Vitals: 10/20/21 0021 BP: 122/82 Pulse: 81 Resp: 18 Temp: 36.8 ??C (98.2 ??F) SpO2: 98% I/O last 2 completed shifts: In: 460 [P.O.:460] Out: - No intake/output data recorded. Physical Exam: General: Patient in no acute distress, alert and oriented??to self only HEENT: ??Normocephalic, atraumatic, sclera non-icteric Lungs: ??Normal respiratory effort, on room air Abd: ??soft, non-tender, non-distended Skin: No rash Extremities: No edema Neuro: ??No focal motor sensory deficits Lab/Radiology/Diagnostic Review: Recent Labs Lab Units 10/20/21 0550 10/19/21 0637 10/18/21 0734 10/16/21 0613 SODIUM mmol/L -- 140 141 140 POTASSIUM PLASMA mmol/L -- 3.8 4.1 3.5 CHLORIDE mmol/L -- 105 107 106 CO2 mmol/L -- 25 27 27 ANIONGAP mmol/L -- 10 7 7 GLUCOSE mg/dL -- 87 88 88 POC GLUCOSE MONITOR mg/dL 83 -- -- -- BUN SERUM mg/dL -- 18 14 15 CREATININE mg/dL -- 0.76* 0.74* 0.69* CALCIUM mg/dL -- 8.6 8.5 8.2* Recent Labs Lab Units 10/19/21 0637 10/18/21 0734 10/16/21 0613 WBC K/cumm 6.2 5.6 6.7 HEMOGLOBIN g/dL 10.5* 10.3* 9.2* HEMATOCRIT % 33.3* 30.9* 28.0* PLATELETS K/cumm 176 194 173 Assessment: Principal Problem: Sepsis due to COVID-19 (CMS/HCC) ([facility]) Active Problems: Chronic systolic heart failure (CMS/HCC) ([facility]) TBI (traumatic brain injury) (CMS/HCC) ([facility]) Orthostatic hypotension COPD (chronic obstructive pulmonary disease) (CMS/HCC) ([facility]) Benign prostatic hyperplasia with lower urinary tract symptoms Septic shock ([facility]) ([facility]) Plan: Treatment Team: Consulting Physician: Miguel Flores MD Fall??7/2 Acute right intertrochanteric femur fracture -CT brain negative, mental status appears to be improving no acute changes -s/p??right??Das and Nephew Trigen Intertan trochanteric nailing of intertrochanteric femur fracture??10/08 -[facility]AT DVT prophylaxis Lovenox -PT/OT fdc facility once arranged ?? Severe sepsis due to COVID 19 COVID 19 infection Thrombocytopenia likely due to sepsis-better - improved with IVF. No other source of infection identified.??Likely all related to covid infection. - completed??remdesvir -maintains on room air ?? 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 Essential HTN Hypotension on admisison -cont Terazsin and lopressor? VTE PPx:??Lovenox Code Status:??Full Code MDM:??Moderate Disposition:??Discharged to SNF on 10/12 * Mark Anthony Stacy - 10/19/2021 12:42 PM CDT Nutrition Follow-up Progress Note Encounter Date: 10/19/21 12:42 PM Nutrition Progress Summary: Patient is a 71 y.o. male. Admit Dx: Disorientation [R41.0] Hypothermia, initial encounter [T68.XXXA] Septic shock (CMS/HCC) ([facility]) [A41.9, R65.21] Pneumonia of right lower lobe due to infectious organism [J18.9] Hypotension, unspecified hypotension type [I95.9] Sepsis due to COVID-19 (CMS/HCC) ([facility]) [U07.1, A41.89]. Admitted on 10/04/2021. Patient's intake improving. Objective Dietary Orders (From admission, onward) Start Ordered 10/11/21 0700 Oral Nutrition Supplements Select Supplement: Ensure Enlive - Any Flavor With Breakfast and Dinner Question: Select Supplement: Answer: Ensure Enlive - Any Flavor 10/10/21 1742 10/10/21 1151 Adult Diet Regular Diet effective now Question: ([facility]) Diet type Answer: Regular 10/10/21 1151 Anthropometrics Weight: 80.6 kg (177 lb 11.1 oz) Admission Weight : 80.6 kg Weight Change: -0.14 kg (-0.30 lbs) IBW/kg (Calculated) : 78 kg Height: 180.3 cm (5' 11 ) Weight in (lb) to have BMI = 25: 178.9 BMI (Calculated): 24.8 Intake/Output Summary (Last 24 hours) at 10/19/2021 1242 Last data filed at 10/19/2021 0903 Gross per 24 hour Intake 360 ml Output -- Net 360 ml Medications and Lab Review: Scheduled Meds: aspirin, 81 mg, oral, Daily enoxaparin, 40 mg, subcutaneous, Daily-2100 folic acid, 1 mg, oral, Daily metoprolol, 100 mg, oral, BID pantoprazole DR, 40 mg, oral, Daily pravastatin, 40 mg, oral, Daily terazosin, 10 mg, oral, Nightly thiamine, 100 mg, oral, QAM Continuous Infusions: PRN Meds: ??? acetaminophen ??? HYDROcodone-acetaminophen ??? ondansetron ODT OR ondansetron Sodium Date Value Ref Range Status 10/19/2021 140 135 - 145 mmol/L Final Potassium, pl Date Value Ref Range Status 10/19/2021 3.8 3.3 - 4.9 mmol/L Final BUN Date Value Ref Range Status 10/19/2021 18 8 - 25 mg/dL Final Creatinine Date Value Ref Range Status 10/19/2021 0.76 (L) 0.80 - 1.30 mg/dL Final Calcium Date Value Ref Range Status 10/19/2021 8.6 8.5 - 10.3 mg/dL Final Lab Results Component Value Date HGBA1C 5.2 06/12/2021 Nursing Assessment: Last BM Date: 10/18/21 Bowel Sounds (All Quadrants): Active Lew Scale Score: 15 Skin Integrity: Surgical incision, Bruising Nutrition Needs Calculations: Calculated Energy Needs Using Equations Weight: 80.6 kg (177 lb 11.1 oz) Height: 180.3 cm (5' 11 ) Estimated Protein Needs Type of Weight Used for Estimated Protein : Current Protein Needs Based on g/k.2 Total Protein Estimated Needs (gm): 96.72 Kcal/kg Type of Weight Used for Estimated Kcals: Current Kcal/k Total Kcal/kg Estimated Needs : 2014 Impression: Pt seen for follow-up. Chart history shows that he is now eating 75- 100% of meals sinceprevious visit. He is currently COVID recovered and has a virtual sitter. I spoke with the nurse who states that he is eating better, but is unsure if he's drinking his Ensure Enlive. He is scheduledfor discharge today. Plan: Continue Ensure Enlive. Monitor intake and plan of care. Current Nutrition Issues: Nutrition Diagnosis 1: Predicted suboptimal energy intake Related to: Other (comment) Evidenced by:Physical finding Nutrition Plan: Interventions: Medical food supplement Monitoring and Evaluation: Plan of care, Supplement tolerance, PO intake Goals: Oral intake to meet 75% estimated nutritional needs by next assessment Diet Instructions Adult Discharge Diet Diet Type: Return to previous diet Mark Anthony Stacy, [employer] Work Supervisor Cosigned by Glenis Khan RD at 10/19/2021 2:49 PM CDT * Jennifer Gao MD - 10/19/2021 7:43 AM CDT General Medicine Daily Progress Note 71 y.o.??year old male??with a pmhx of A-fib on no anticoagulation due to prior SAH, CHF, HTN, legally blind, A&Ox1 at baseline??who presented after being found unresponsive in his wheelchair while at home. In the ED here, he presented with vitals notable for systolic in the 50s and bradycardia. Started on sepsis protocol, given 30 cc/kg fluids. BP improved and admitted to the floors.??He was tested positive for COVID-19 and sepsis is presumably due to viral etiology. He was given Remdesivir but no steroid because pt is not hypoxic. The patient had another unwitnessed fall here in the hospital on 10/07 and was found to have a right femur fracture.??He underwent??right??Das and Nephew Trigen Intertan trochanteric nailing of intertrochanteric femur fracture??10/08. He??remains oriented to self only. He has intermittent complaints of hip pain. He has been resting comfortably. Discussed DVT PPx with Dr. Flores. OK with Lovenox. He was discharged to SNF on 10/12/21 and remains stable for discharge. I do not anticipate any major changes to his plan of care and have only been following peripherally should needs arise. My visit this a.m. patient resting in bed easily awakens answers questions simple ones follows simple commands states he breakfast denies any apparent acute distress is saturating in 90s on room air. Social work following for dispo okay to DC Objective Vitals: 24hr Min/Max: Temp Min: 36.6 ??C (97.9 ??F) Max: 37 ??C (98.6 ??F) Pulse Min: 82 Max: 93 BP Min: 150/77 Max: 156/97 Resp Min: 18 Max: 18 SpO2 Min: 96 % Max: 99 % Most Recent : Vitals: 10/19/21 0040 BP: Pulse: 88 Resp: Temp: 36.6 ??C (97.9 ??F) SpO2: 99% No intake/output data recorded. No intake/output data recorded. Physical Exam: General: Patient in no acute distress, alert and oriented??to self only HEENT: ??Normocephalic, atraumatic, sclera non-icteric Lungs: ??Normal respiratory effort, on room air Abd: ??soft, non-tender, non-distended Skin: No rash Extremities: No edema Neuro: ??No focal motor sensory deficits Lab/Radiology/Diagnostic Review: Recent Labs Lab Units 10/19/21 0637 10/18/21 0734 10/16/21 0613 SODIUM mmol/L 140 141 140 POTASSIUM PLASMA mmol/L 3.8 4.1 3.5 CHLORIDE mmol/L 105 107 106 CO2 mmol/L 25 27 27 ANIONGAP mmol/L 10 7 7 GLUCOSE mg/dL 87 88 88 BUN SERUM mg/dL 18 14 15 CREATININE mg/dL 0.76* 0.74* 0.69* CALCIUM mg/dL 8.6 8.5 8.2* Recent Labs Lab Units 10/19/21 0637 10/18/21 0734 10/16/21 0613 WBC K/cumm 6.2 5.6 6.7 HEMOGLOBIN g/dL 10.5* 10.3* 9.2* HEMATOCRIT % 33.3* 30.9* 28.0* PLATELETS K/cumm 176 194 173 Assessment: Principal Problem: Sepsis due to COVID-19 ([facility]) ([facility]) Active Problems: Chronic systolic heart failure ([facility]) ([facility]) TBI (traumatic brain injury) ([facility]) ([facility]) Orthostatic hypotension COPD (chronic obstructive pulmonary disease) ([facility]) ([facility]) Benign prostatic hyperplasia with lower urinary tract symptoms Septic shock ([facility]) ([facility]) Plan: Treatment Team: Consulting Physician: Miguel Flores MD Fall??10/07 Acute right intertrochanteric femur fracture -CT brain negative, mental status appears to be improving -s/p??right??Das and Nephew Trigen Intertan trochanteric nailing of intertrochanteric femur fracture??10/08 -WBAT DVT prophylaxis Lovenox -PT/OT fdc facility ?? Severe sepsis due to COVID 19 COVID 19 infection Thrombocytopenia likely due to sepsis-better - improved with IVF. No other source of infection identified.??Likely all related to covid infection. - completed??remdesvir -maintains on room air ?? 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 Essential HTN Hypotension on admisison -cont Terazsin and lopressor? VTE PPx:??Lovenox Code Status:??Full Code MDM:??Moderate Disposition:??Discharged to SNF on 10/12 * Jennifer Gao MD - 10/17/2021 8:05 AM CDT General Medicine Daily Progress Note 71 y.o.??year old male??with a pmhx of A-fib on no anticoagulation due to prior SAH, CHF, HTN, legally blind, A&Ox1 at baseline??who presented after being found unresponsive in his wheelchair while at home. In the ED here, he presented with vitals notable for systolic in the 50s and bradycardia. Started on sepsis protocol, given 30 cc/kg fluids. BP improved and admitted to the floors.??He was tested positive for COVID-19 and sepsis is presumably due to viral etiology. He was given Remdesivir but no steroid because pt is not hypoxic. The patient had another unwitnessed fall here in the hospital on 10/07 and was found to have a right femur fracture.??He underwent??right??Das and Nephcece Trigen Intertan trochanteric nailing of intertrochanteric femur fracture??10/08. He??remains oriented to self only. He has intermittent complaints of hip pain. He has been resting comfortably. Discussed DVT PPx with Dr. Flores. OK with Lovelisax. He was discharged to SNF on 10/12/21 and remains stable for discharge. I do not anticipate any major changes to his plan of care and have only been following peripherally should needs arise. My visit this a.m. patient resting in bed easily awakens answers questions simple ones follows simple commands states he breakfast denies any apparent acute distress is saturating in 90s on room air. Social work following for dispo okay to DC Objective Vitals: 24hr Min/Max: Temp Min: 36.5 ??C (97.7 ??F) Max: 36.9 ??C (98.4 ??F) Pulse Min: 87 Max: 104 BP Min: 117/73 Max: 155/85 Resp Min: 18 Max: 20 SpO2 Min: 94 % Max: 100 % Most Recent : Vitals: 10/17/21 0015 BP: 117/73 Pulse: 89 Resp: 18 Temp: 36.7 ??C (98.1 ??F) SpO2: 94% No intake/output data recorded. No intake/output data recorded. Physical Exam: General: Patient in no acute distress, alert and oriented??to self only HEENT: ??Normocephalic, atraumatic, sclera non-icteric Lungs: ??Normal respiratory effort, on room air Abd: ??soft, non-tender, non-distended Skin: No rash Extremities: No edema Neuro: ??No focal motor sensory deficits Lab/Radiology/Diagnostic Review: Recent Labs Lab Units 10/16/21 0613 10/15/21 1030 10/14/21 0700 SODIUM mmol/L 140 139 140 POTASSIUM PLASMA mmol/L 3.5 3.8 3.4 CHLORIDE mmol/L 106 105 108 CO2 mmol/L 27 26 25 ANIONGAP mmol/L 7 8 7 GLUCOSE mg/dL 88 142 85 BUN SERUM mg/dL 15 11 11 CREATININE mg/dL 0.69* 0.59* 0.62* CALCIUM mg/dL 8.2* 8.4* 8.2* Recent Labs Lab Units 10/16/21 0613 10/15/21 1030 10/14/21 0700 WBC K/cumm 6.7 5.7 4.4 HEMOGLOBIN g/dL 9.2* 10.4* 9.9* HEMATOCRIT % 28.0* 30.5* 29.8* PLATELETS K/cumm 173 167 159 Assessment: Principal Problem: Sepsis due to COVID-19 ([facility]) ([facility]) Active Problems: Chronic systolic heart failure ([facility]) ([facility]) TBI (traumatic brain injury) ([facility]) ([facility]) Orthostatic hypotension COPD (chronic obstructive pulmonary disease) ([facility]) ([facility]) Benign prostatic hyperplasia with lower urinary tract symptoms Septic shock ([facility]) ([facility]) Plan: Treatment Team: Consulting Physician: Miguel Flores MD Fall??10/07 Acute right intertrochanteric femur fracture -CT brain negative, mental status appears to be improving -s/p??right??Thiago and Nephcece Trigen Intertan trochanteric nailing of intertrochanteric femur fracture??10/08 -WBAT DVT prophylaxis Lovenox -PT/OT fdc facility ?? Severe sepsis due to COVID 19 COVID 19 infection Thrombocytopenia likely due to sepsis-better - improved with IVF. No other source of infection identified.??Likely all related to covid infection. - completed??remdesvir -maintains on room air ?? 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 Essential HTN Hypotension on admisison -cont Terazsin and lopressor? VTE PPx:??Lovenox Code Status:??Full Code MDM:??Moderate Disposition:??Discharged to SNF on 10/12 * Saba Knight, PT - 10/16/2021 2:56 PM CDT Physical Therapy 10/16/21 1456 PT Last Visit Session Type Treatment PT Received On 10/16/21 Safe Environment Arm Band Checked;Bed Alarm placed and activated;Call Light within Reach;Notified RN;Patient found in Supine;Overbed Table within Reach Subjective Agreeable to Therapy Subjective Comment Pt confused but indicates he is agreeable to participating in physical therapy. Family/Caregiver Present No Precautions Precautions Bed/Chair Alarm;Fall risk Weight Bearing Restrictions Yes RLE Weight Bearing WBAT Precaution Comments Pt has sitter d/t confusion. Activity Tolerance Activity Tolerance Comments Post activity vitals: 98% on RA, HR 86. Pain Assessment Pain Assessment 0-10 Pain Score 0 - No pain Clinical Progression Not changed Cognition Cognition Comments Pt is [place] Overall Cognitive Status Impaired Arousal/Alertness Alert Attention Span Attends with cues to redirect Memory Decreased short term memory Current communication Appears Intact Orientation Oriented to person Following Commands Follows one step commands with repetition Safety Judgment Decreased awareness of need for assistance Awareness of Errors Assistance required to identify errors made;Assistance required to correct errors made Insight Decreased awareness of deficits Problem Solving Assistance required to identify errors made;Assistance required to generate solutions;Assistance required to implement solutions Compliance/Behavior Easy to engage Balance Balance Yes Static Sitting Balance Static Sitting-Balance Support Bilateral upper extremity supported Static Sitting-Sitting Surface Bed Static Sitting-Level of Assistance Close supervision Static Standing Balance Static Standing-Balance Support Bilateral upper extremity supported Static Standing-Standing Surface Floor Static Standing-Level of Assistance Contact guard Static Standing-Comment/# of Minutes Pt able to stand with ww and CGA for safety upon standing frombed. Dynamic Standing Balance Dynamic Standing-Balance Support Bilateral upper extremity supported Dynamic Standing-Balance (side stepping at side of bed) Dynamic Standing-Standing Surface Mat (mat on floor for pt safety) Dynamic Standing-Level of Assistance Contact guard;Minimum assistance Supine Supine-Exercise Comments Pt engaged in ankle pumps x10 reps, and heel slides x10 reps each leg. Bed Mobility Bed Mobility Yes Bed Mobility 1 Bed Mobility From 1 Supine Bed Mobility Type 1 To and from Bed Mobility to 1 Edge of bed Level of Assistance 1 Standby Assist Bed Mobility Comments 1 HOB elevated, UE used on hand rails for assistance Bed Mobility 2 Bed Mobility From 2 Supine Bed Mobility Type 2 To and from Bed Mobility to 2 Side lying-right;Side lying-left Level of Assistance 2 Standby Assist Transfer 1 Transfer From 1 Sit Transfer Type 1 To and from Transfer to 1 Stand Technique 1 Sit to stand;Stand to sit Transfer Device 1 Wheeled walker Transfer Level of Assistance 1 Contact Guard Assist;Minimum Assist Trials/Comments 1 Pt required CGA-Min A for sit to/from stand from bed with ww. Requires assistancefor correct hand placement and for eccentric lowering to bed. Ambulation 1 Distance (ft) 1 4 steps at side of bed Surface 1 (level mat) Device 1 Wheeled walker Assistance 1 Contact Guard Assist;Minimum Assist Gait: Requires assist with 1 Maintaining balance Gait: Requires verbal cues to 1 Use assistive device safely;Utilize appropriate gait sequencing Quality of Gait 1 decreased speed, narrow CHERRY Ambulation Comments 1 Pt able to take 4 steps at side of bed with ww and CGA-Min A for safety, balance, and motor planning. Other Comments Other PT Comments Pt limited due to impaired cognition and fatigue. Pt more alert and able to follow commands this session, however he denied additional gait training due to fatigue. Assessment Prognosis Good Problem List Gait deviations;Decreased strength;Decreased endurance;Impaired balance;Decreased mobility;Decreased cognition;Decreased safety awareness Plan Plan Continue with current plan;If this is the last note, consider this the discharge summary Recommendation/Plan PT Recommendation/Plan (S) Intermediate Facility PT Frequency 3-5x/wk Treatment/Interventions Balance Training;Functional activity;Functional transfer training;Therapeutic activity;Transfer training;Gait training;Therapeutic exercise PT Equipment Recommended Wheeled walker Progress Slow progress, cognitive deficits Education: Patient has been educated on the role of PT, safety , precautions, and mobility training. Education completed via explanation and demonstration. Patient needs ongoing reinforcement Multi-Disciplinary Problems (from Physical Therapy) Active Problems Problem: [facility] Start Date: 10/06/21 Goal Start Date Expected End Date End Date PT LTG - [facility] 1 10/06/21 10/20/21 -- Goal Details: Pt will perform all OOB transfers with modified independence and least restrictive assistive device prior to discharge. Goal Start Date Expected End Date End Date PT LTG - [facility] 2 10/06/21 10/20/21 -- Goal Details: Pt will ambulate 150ft with modified independence and least restrictive assistive device prior to discharge. Goal Start Date Expected End Date End Date PT LTG - Misc 3 10/06/21 10/20/21 -- Goal Details: Pt will increase Tinetti Balance Assessment score to 23/28 to demonstrate decreased fall risk prior to discharge. * Saqib Currie Donavan, DO - 10/16/2021 12:14 PM CDT General Medicine Daily Progress Note 71 y.o.??year old male??with a pmhx of A-fib on no anticoagulation due to prior SAH, CHF, HTN, legally blind, A&Ox1 at baseline??who presented after being found unresponsive in his wheelchair while at home. In the ED here, he presented with vitals notable for systolic in the 50s and bradycardia. Started on sepsis protocol, given 30 cc/kg fluids. BP improved and admitted to the floors.??He was tested positive for COVID-19 and sepsis is presumably due to viral etiology. He was given Remdesivir but no steroid because pt is not hypoxic. ?? The patient had another unwitnessed fall here in the hospital on 10/07 and was found to have a right femur fracture.??He underwent??right??Das and Nephcece Trigen Intertan trochanteric nailing of intertrochanteric femur fracture??10/08. ?? He??remains oriented to self only. He has intermittent complaints of hip pain. He has been resting comfortably. Discussed DVT PPx with Dr. Flores. OK with Lovenox. He was discharged to SNF on 10/12/21 and remains stable for discharge. I do not anticipate any major changes to his plan of care and have only been following peripherally should needs arise. Objective Vitals: 24hr Min/Max: Temp Min: 36.7 ??C (98.1 ??F) Max: 37 ??C (98.6 ??F) Pulse Min: 84 Max: 104 BP Min: 126/83 Max: 160/100 Resp Min: 18 Max: 20 SpO2 Min: 97 % Max: 100 % Most Recent : Vitals: 10/16/21 0855 BP: 126/83 Pulse: 104 Resp: 20 Temp: 36.9 ??C (98.4 ??F) SpO2: 100% I/O last 2 completed shifts: In: 130 [P.O.:120; I.V.:10] Out: - No intake/output data recorded. Physical Exam: General: Patient in no acute distress, alert and oriented??to self only HEENT: ??Normocephalic, atraumatic, sclera non-icteric Lungs: ??Normal respiratory effort, on room air Abd: ??soft, non-tender, non-distended Skin: No rash Extremities: No edema Neuro: ??No focal motor sensory deficits Lab/Radiology/Diagnostic Review: Recent Labs Lab Units 10/16/21 0613 10/15/21 1030 10/14/21 0700 SODIUM mmol/L 140 139 140 POTASSIUM PLASMA mmol/L 3.5 3.8 3.4 CHLORIDE mmol/L 106 105 108 CO2 mmol/L 27 26 25 ANIONGAP mmol/L 7 8 7 GLUCOSE mg/dL 88 142 85 BUN SERUM mg/dL 15 11 11 CREATININE mg/dL 0.69* 0.59* 0.62* CALCIUM mg/dL 8.2* 8.4* 8.2* Recent Labs Lab Units 10/16/21 0613 10/15/21 1030 10/14/21 0700 WBC K/cumm 6.7 5.7 4.4 HEMOGLOBIN g/dL 9.2* 10.4* 9.9* HEMATOCRIT % 28.0* 30.5* 29.8* PLATELETS K/cumm 173 167 159 Assessment: Principal Problem: Sepsis due to COVID-19 ([facility]) ([facility]) Active Problems: Chronic systolic heart failure ([facility]) ([facility]) TBI (traumatic brain injury) ([facility]) ([facility]) Orthostatic hypotension COPD (chronic obstructive pulmonary disease) ([facility]) ([facility]) Benign prostatic hyperplasia with lower urinary tract symptoms Septic shock ([facility]) ([facility]) Plan: Treatment Team: Consulting Physician: Miguel Flores MD Fall??10/07 Acute right intertrochanteric femur fracture -CT brain negative -s/p??right??Das and Nephcece Trigen Intertan trochanteric nailing of intertrochanteric femur fracture??10/08 -WBAT -PT/OT ?? Severe sepsis due to COVID 19 COVID 19 infection Thrombocytopenia likely due to sepsis-better - improved with IVF. No other source of infection identified.??Likely all related to covid infection. - completed??remdesvir ?? 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 Essential HTN Hypotension on admisison -cont Terazsin and lopressor? VTE PPx:??Lovenox Code Status:??Full Code MDM:??Moderate Disposition:??Discharged to SNF on 10/12 Saqib Currie DO, MS, FACP, FACOI * Zoey Alfred OT - 10/16/2021 9:55 AM CDT Occupational Therapy 10/16/21 0955 General OT Received On 10/16/21 Subjective Comment Pt declines, stating that he is too comfortable and warm. Does not request therapist to return. Will continue to follow. OT Missed Visit Reason Patient declined * Saqib Currie DO - 10/15/2021 10:10 AM CDT Jania was discharged to SNF on 10/12/21 and remains stable for discharge. I do not anticipate any major changes to his plan of care and am only following peripherally should needs arise. * Saqib Currie DO - 10/14/2021 1:49 PM CDT Jania was discharged to SNF on 10/12/21 and remains stable for discharge. I do not anticipate any major changes to his plan of care. * Glenis Khan RD - 10/13/2021 3:49 PM CDT Nutrition Follow-up Progress Note Encounter Date: 10/13/21 3:49 PM Nutrition Progress Summary: Patient is a 71 y.o. male. Admit Dx: Disorientation [R41.0] Hypothermia, initial encounter [T68.XXXA] Septic shock ([facility]) ([facility]) [A41.9, R65.21] Pneumonia of right lower lobe due to infectious organism [J18.9] Hypotension, unspecified hypotension type [I95.9] Sepsis due to COVID-19 ([facility]) ([facility]) [U07.1, A41.89]. Admitted on 10/04/2021. Patient's intake is inconsistent. Objective Dietary Orders (From admission, onward) Start Ordered 10/11/21 0700 Oral Nutrition Supplements Select Supplement: Ensure Enlive - Any Flavor With Breakfast and Dinner Question: Select Supplement: Answer: Ensure Enlive - Any Flavor 10/10/21 1742 10/10/21 1151 Adult Diet Regular Diet effective now Question: ([facility]) Diet type Answer: Regular 10/10/21 1151 Anthropometrics Weight: 80.6 kg (177 lb 11.1 oz) Admission Weight : 80.6 kg Weight Change: -0.14 kg (-0.30 lbs) IBW/kg (Calculated) : 78 kg Height: 180.3 cm (5' 11 ) Weight in (lb) to have BMI = 25: 178.9 BMI (Calculated): 24.8 Intake/Output Summary (Last 24 hours) at 10/13/2021 1549 Last data filed at 10/13/2021 0550 Gross per 24 hour Intake -- Output 1000 ml Net -1000 ml Medications and Lab Review: Scheduled Meds: aspirin, 81 mg, oral, Daily enoxaparin, 40 mg, subcutaneous, Daily-2100 folic acid, 1 mg, oral, Daily metoprolol, 100 mg, oral, BID pantoprazole DR, 40 mg, oral, Daily pravastatin, 40 mg, oral, Daily terazosin, 10 mg, oral, Nightly thiamine, 100 mg, oral, QAM Continuous Infusions: PRN Meds: ??? acetaminophen ??? HYDROcodone-acetaminophen ??? ondansetron ODT OR ondansetron Sodium Date Value Ref Range Status 10/13/2021 138 135 - 145 mmol/L Final Potassium, pl Date Value Ref Range Status 10/13/2021 3.3 3.3 - 4.9 mmol/L Final BUN Date Value Ref Range Status 10/13/2021 10 8 - 25 mg/dL Final Creatinine Date Value Ref Range Status 10/13/2021 0.60 (L) 0.80 - 1.30 mg/dL Final Calcium Date Value Ref Range Status 10/13/2021 8.1 (L) 8.5 - 10.3 mg/dL Final Lab Results Component Value Date HGBA1C 5.2 06/12/2021 Nursing Assessment: Last BM Date: 10/12/21 Bowel Sounds (All Quadrants): Active Lew Scale Score: 18 Skin Integrity: Abrasion, Surgical incision Nutrition Needs Calculations: Calculated Energy Needs Using Equations Weight: 80.6 kg (177 lb 11.1 oz) Height: 180.3 cm (5' 11 ) Estimated Protein Needs Type of Weight Used for Estimated Protein : Current Protein Needs Based on g/k.2 Total Protein Estimated Needs (gm): 96.72 Kcal/kg Type of Weight Used for Estimated Kcals: Current Kcal/k Total Kcal/kg Estimated Needs : 2014 Impression: Pt has virtual sitter, ready for d/c but needing place per notes. Per discussion with RN today, pt needs to be fed, will eat really well for some meals then will not want to eat a meal attimes. He did consume all of an Ensure Enlive. Varied intake per documentation. No reports of difficulty swallowing. Plan: Continue Ensure Enlive BID. Discussed with RN, can order additional if needed pending pt's intake. Current Nutrition Issues: Nutrition Diagnosis 1: Predicted suboptimal energy intake Related to: Other (comment) Evidenced by:Physical finding Nutrition Plan: Interventions: Medical food supplement Monitoring and Evaluation: Plan of care, Supplement tolerance, PO intake Goals: Oral intake to meet 75% estimated nutritional needs by next assessment Diet Instructions Adult Discharge Diet Diet Type: Return to previous diet Glenis Khan RD, LD * Saqib Currie DO - 10/13/2021 12:20 PM CDT Jania was discharged to SNF on 10/12/21 and remains stable for discharge. I do not anticipate any major changes to his plan of care. From night RN note: Pt A&Ox1, on room air, and denies pain. Meds given in pudding. BP was elevated over night, hospitalist contacted and no new orders placed. Condom cath in place draining adequate output. Virtual sitter at bedside. Pt much more talkative and pleasant beginning of shift and then become agitated again throughout rest of night when touching/waking pt up. Pt slept majority of night, will continue to monitor. * Saba Knight, PT - 10/11/2021 2:44 PM CDT Physical Therapy 10/11/21 1444 PT Last Visit Session Type Treatment PT Received On 10/11/21 Safe Environment Arm Band Checked;Chair Alarm placed and activated;Call Light within Reach;NotifiedRN;Patient found sitting in Chair;Overbed Table within Reach (sitter present) Subjective Agreeable to Therapy Subjective Comment Pt very lethargic with eyes closed most of session but verbalizes yes to work participate in therapy. Additional Pertinent History The patient had unwitnessed fall here in the hospital on 10/07 and was found to have right femur fracture. He underwent right Das and Nephew Trigen Intertan trochanteric nailing of intertrochanteric femur fracture 10/08. Family/Caregiver Present No Precautions Precautions Bed/Chair Alarm;Fall risk Weight Bearing Restrictions Yes RLE Weight Bearing WBAT Precaution Comments Pt has sitter in room d/t confusion and pt being a high fall risk. Activity Tolerance Activity Tolerance Comments Pre activity vitals: 94%, HR 73, 137/85 Pain Assessment Pain Assessment 0-10 Pain Score 0 - No pain Clinical Progression Not changed Cognition Cognition Comments Pt is [place] Overall Cognitive Status Impaired Arousal/Alertness Delayed responses to stimuli;Lethargic Attention Span Attends with cues to redirect Orientation Oriented to person Following Commands Follows one step commands with repetition Safety Judgment Decreased awareness of need for assistance Awareness of Errors Assistance required to identify errors made;Assistance required to correct errors made Insight Decreased awareness of deficits Problem Solving Assistance required to identify errors made;Assistance required to generate solutions;Assistance required to implement solutions Compliance/Behavior Easy to engage Balance Balance Yes Static Standing Balance Static Standing-Balance Support Bilateral upper extremity supported Static Standing-Standing Surface Floor Static Standing-Level of Assistance Contact guard;Minimum assistance Static Standing-Comment/# of Minutes Pt stood at walker for approx 30 seconds before unexpectedly sitting back into recliner. CGA to Min Assist for safety and balance Bed Mobility 1 Bed Mobility Comments 1 Pt received and ended session sitting in recliner. Transfer 1 Transfer From 1 Sit Transfer Type 1 To and from Transfer to 1 Stand Technique 1 Sit to stand;Stand to sit Transfer Device 1 Wheeled walker Transfer Level of Assistance 1 Minimum Assist Trials/Comments 1 2 reps of sit to/from stand from recliner with ww and min assist for force production and safety. Therapist instructed pt to stay standing however after approx 30 seconds of standing pt unexpectedly sat back into chair. Ambulation 1 Ambulation Comments 1 Unable to attempt ambulation this session due to pt's lethargy and inability to consistently follow commands. Other Comments Other PT Comments Pt limited due to impaired cognition. Unable to attempt ambulation this session due to pt's lethargy and inability to consistently follow commands. Demonstrated impulsivity as he sat back into recliner unexpectedly after therapist cue pt to remain standing with UE support on ww. Assessment Prognosis Good Problem List Gait deviations;Decreased strength;Decreased endurance;Impaired balance;Decreased mobility;Decreased cognition;Decreased safety awareness Plan Plan Continue with current plan;If this is the last note, consider this the discharge summary Recommendation/Plan PT Recommendation/Plan (S) Intermediate Facility PT Frequency 3-5x/wk Treatment/Interventions Balance Training;Functional activity;Functional transfer training;Therapeutic activity;Transfer training PT Equipment Recommended Wheeled walker Progress Slow progress, cognitive deficits Education: Patient has been educated on the role of PT, safety , precautions, and mobility training. Education completed via explanation and demonstration. Patient needs ongoing reinforcement Multi-Disciplinary Problems (from Physical Therapy) Active Problems Problem: PT [facility] Start Date: 10/06/21 Goal Start Date Expected End Date End Date PT LTG - [facility] 1 10/06/21 10/20/21 -- Goal Details: Pt will perform all OOB transfers with modified independence and least restrictive assistive device prior to discharge. Goal Start Date Expected End Date End Date PT LT - [facility] 2 10/06/21 10/20/21 -- Goal Details: Pt will ambulate 150ft with modified independence and least restrictive assistive device prior to discharge. Goal Start Date Expected End Date End Date PT LTG - [facility] 3 10/06/21 10/20/21 -- Goal Details: Pt will increase Tinetti Balance Assessment score to 23/28 to demonstrate decreased fall risk prior to discharge. * Saqib Currie, DO - 10/11/2021 12:24 PM CDT General Medicine Daily Progress Note Hospital Course ?? 71 y.o.??year old male??with a pmhx of A-fib on no anticoagulation due to prior SAH, CHF, HTN, legally blind, A&Ox1 at baseline??who presented after being found unresponsive in his wheelchair while at home. In the ED here, he presented here with vitals notable for systolic in the 50s and bradycardia. Started on sepsis protocol, given 30 cc/kg fluids. BP improved and admitted to the floors.??He was tested positive for COVID-19 and sepsis is presumably due to viral etiology. He was given Remdesivir, no steroid because pt is not hypoxic. ?? The patient had another unwitnessed fall here in the hospital on 10/07 and was found to have right femur fracture.?He underwent??right??Thiago and El Trigen Intertan trochanteric nailing of intertrochanteric femur fracture??10/08. ?? Interval History: ?? Jania remains oriented to self only. He has intermittent complaints of hip pain. He has been resting comfortably. Discussed DVT PPx with Dr. Flores yesterday. OK with Lovenox. He is stable for discharge to SNF. Objective Vitals: 24hr Min/Max: Temp Min: 36.5 ??C (97.7 ??F) Max: 36.7 ??C (98.1 ??F) Pulse Min: 73 Max: 121 BP Min: 125/85 Max: 168/90 Resp Min: 16 Max: 18 SpO2 Min: 95 % Max: 99 % Most Recent : Vitals: 10/11/21 0850 BP: 168/90 Pulse: 91 Resp: Temp: SpO2: I/O last 2 completed shifts: In: 520 [P.O.:520] Out: - I/O this shift: In: 240 [P.O.:240] Out: - Physical Exam: General: Patient in no acute distress, alert and oriented to self only HEENT: Normocephalic, atraumatic, sclera non-icteric Lungs: Normal respiratory effort, on room air Abd: soft, non-tender, non-distended Skin: No rash Extremities: No edema Neuro: No focal motor sensory deficits Lab/Radiology/Diagnostic Review: Recent Labs Lab Units 10/11/21 0610/10/21 0649 10/10/21 0640 10/09/21 0625 10/09/21 0615 10/05/21 0544 10/04/21 1322 SODIUM mmol/L 137 136 -- -- 138 < > 136 POTASSIUM PLASMA mmol/L 3.6 3.8 -- -- 3.8 < > 3.3 CHLORIDE mmol/L 106 103 -- -- 105 < > 102 CO2 mmol/L 25 23 -- -- 25 < > 26 ANIONGAP mmol/L 6 10 -- -- 8 < > 8 GLUCOSE mg/dL 97 97 -- -- 115 < > 121 POC GLUCOSE MONITOR mg/dL -- -- 94 < > -- -- -- BUN SERUM mg/dL 15 17 -- -- 13 < > 10 CREATININE mg/dL 0.67* 0.75* -- -- 0.75* < > 0.95 CALCIUM mg/dL 8.1* 8.1* -- -- 8.2* < > 8.5 ALBUMIN g/dL -- -- -- -- -- -- 3.2* ALK PHOS Units/L -- -- -- -- -- -- 118 ALT Units/L -- -- -- -- -- -- 17 AST Units/L -- -- -- -- -- -- 32 BILIRUBIN TOTAL mg/dL -- -- -- -- -- -- 0.4 < > = values in this interval not displayed. Recent Labs Lab Units 10/11/21 0610/10/21 0649 10/09/21 0615 WBC K/cumm 5.1 7.2 4.8 HEMOGLOBIN g/dL 9.4* 10.1* 9.8* HEMATOCRIT % 28.7* 30.9* 29.7* PLATELETS K/cumm 102* 105* 99* Assessment: Principal Problem: Sepsis due to COVID-19 (CMS/HCC) ([facility]) Active Problems: Chronic systolic heart failure (CMS/HCC) (HCC) TBI (traumatic brain injury) (CMS/HCC) ([facility]) Orthostatic hypotension COPD (chronic obstructive pulmonary disease) ([facility]) ([facility]) Benign prostatic hyperplasia with lower urinary tract symptoms Plan: Treatment Team: Consulting Physician: Miguel Flores MD Fall??10/07 Acute right intertrochanteric femur fracture -CT brain negative -s/p??right??Das and Nephew Trigen Intertan trochanteric nailing of intertrochanteric femur fracture??10/08 -WBAT -PT/OT ?? Severe sepsis due to COVID 19 COVID 19 infection Thrombocytopenia likely due to sepsis-better - improved with IVF. No other source of infection identified.??Likely all related to covid infection. - completed??remdesvir ?? 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 Essential HTN Hypotension on admisison -cont Terazsin and lopressor ?? VTE PPx: Lovenox Code Status: Full Code MDM: Moderate Disposition: Stable for discharge to SNF Saqib Currie DO, MS, FACP, FACOI * Zoey Alfred OT - 10/11/2021 9:37 AM CDT Occupational Therapy Treatment 10/11/21 0937 General Session Type Treatment OT Received On 10/11/21 Safe Environment Arm Band Checked;Chair Alarm placed and activated;Call Light within Reach;NotifiedRN;Patient found in Supine;Overbed Table within Reach Subjective Agreeable to Therapy Family/Caregiver Present No Precautions Precautions Bed/Chair Alarm;Fall risk Weight Bearing Restrictions Yes RLE Weight Bearing WBAT PAINAD (Pain Assessment in Advanced Dementia) Breathing 0 Negative Vocalization 1 Facial Expression 0 Body Language 0 Consolability 0 PAINAD Score 1 Feeding Feeding: Where assessed Sitting;Chair Feeding: Level of assistance Minimum Assist Feeding: Assistance with Scooping food;Beverage management;Cutting food;Sequencing Grooming Grooming: Where assessed Standing at sink Grooming: Level of assistance Moderate Assist Grooming: Assistance with Teeth care;Increased time to complete;Standing with assistive device;Safety Bathing Bathing: Where assessed Sitting;Chair (sponge bath) Bathing: Level of assistance Moderate Assist Bathing: Assistance with Increased time to complete ;Right upper leg;Left upper leg;Right lower legincluding foot;Left lower leg including foot;Sequencing;Safety;Attending to task LE Dressing LE Dressing: Where assessed Sitting;Chair LE Dressing: Level of assistance Maximum Assist LE Dressing: Assistance with Don/doff R sock;Don/doff L sock Bed Mobility 1 Bed Mobility Comments 1 Supine>sit Mod A. Able to sit EOB CGA with UE support, Transfer 1 Trials/Comments 1 Sit>stand from EOB to WW Mod A. Mod A for stand pivot transfer to recliner. Sit>stand from recliner to WW Mod A. Mod A for functional mobility in room with use of WW and closechair follow. Returned to recliner Mod A. Pt requires cueing throughout for proper use of WW, advancing LEs, reaching back for transfer surface, and slowed, controlled descent. Cognition Overall Cognitive Status Impaired Arousal/Alertness Delayed responses to stimuli Attention Span Attends with cues to redirect Memory Decreased short term memory;Decreased recall of recent events Current communication Appears Intact Orientation Oriented to person Following Commands Follows one step commands with repetition Safety Judgment Decreased awareness of need for assistance Awareness of Errors Assistance required to identify errors made;Assistance required to correct errors made Insight Decreased awareness of deficits Problem Solving Assistance required to identify errors made;Assistance required to generate solutions;Assistance required to implement solutions Compliance/Behavior Easy to engage Additional Activities Additional Activities Comments Pt requires several cues throughout session to open eyes, but participates easily in tasks. Pt cooperative and pleasant. Pt requires increased time to initiate tasks, but once started, finishes task with decreased assist. Decreased safety awareness demoed throughout session with several LOB/lateral and anterior leans that require Mod A to correct. Activity Tolerance Activity Tolerance Comments BP 132/90, HR 74-76, O2 92-94% on RA Other Comments Comments Left with call light in reach, needs met, chair alarm on, sitter present, SCDs in place. Assessment Prognosis Good Plan Plan Continue with current plan;If this is the last note, consider this the discharge summary Recommendation/Plan OT Recommendation (S) Intermediate Facility Recommend SNF due to Risk of injury at home;Unable to safely care for self in the home;Skilled therapy needed to address care for self in the home;Skilled therapy needed to address functional deficits Progress Progressing toward goals Education: Patient has been educated on the role of OT, safety, precautions, ADL training, mobilitytraining, body mechanics, energy conservation, and use of adaptive equipment/DME. Education completed via verbal instruction and return demonstration. Patient needs ongoing reinforcement Multi-Disciplinary Problems (from Occupational Therapy) Active Problems Problem: OT Misc Start Date: 10/05/21 Goal Start Date Expected End Date End Date Pt. will complete total body dressing SBA 10/05/21 10/19/21 -- Goal Start Date Expected End Date End Date Pt. will complete grooming SBA 10/05/21 10/19/21 -- Goal Start Date Expected End Date End Date Pt. will complete toileting SBA 10/05/21 10/19/21 -- Goal Start Date Expected End Date End Date Pt. will complete bathing with SBA 10/05/21 10/19/21 -- * Glenis Khan, RD - 10/10/2021 5:37 PM CDT Initial Nutrition Assessment Reason for Assessment: Initial Nutrition Assessment Encounter Date: 10/10/21 5:37 PM Nutrition Evaluation: Patient is a 71 y.o. male. Admit Dx: Disorientation [R41.0] Hypothermia, initial encounter [T68.XXXA] Septic shock (CMS/HCC) ([facility]) [A41.9, R65.21] Pneumonia of right lower lobe due to infectious organism [J18.9] Hypotension, unspecified hypotension type [I95.9] Sepsis due to COVID-19 (CMS/HCC) ([facility]) [U07.1, A41.89]. Admitted on 10/04/2021, current LOS is 6 days. Patient's intake is inconsistent. Objective Past Medical History: Diagnosis Date ??? Acute [...] THROUGH EXISTING CATHETER N/A 02/04/2020 ??? VASECTOMY Anthropometrics Weight: 80.6 kg (177 lb 11.1 oz) Admission Weight : 80.6 kg Weight Change: -0.14 kg (-0.30 lbs) IBW/kg (Calculated) : 78 kg Height: 180.3 cm (5' 11 ) Weight in (lb) to have BMI = 25: 178.9 BMI (Calculated): 24.8 Intake/Output Summary (Last 24 hours) at 10/10/2021 1737 Last data filed at 10/10/2021 1340 Gross per 24 hour Intake 360 ml Output -- Net 360 ml Medications and Lab Review: Scheduled Meds: [START ON 10/11/2021] aspirin, 81 mg, oral, Daily budesonide-formoteroL, 2 puff, inhalation, BID (RT) enoxaparin, 40 mg, subcutaneous, Daily-2100 folic acid, 1 mg, oral, Daily metoprolol, 100 mg, oral, BID pantoprazole DR, 40 mg, oral, Daily pravastatin, 40 mg, oral, Daily terazosin, 10 mg, oral, Nightly thiamine, 100 mg, oral, QAM Continuous Infusions: PRN Meds: ??? acetaminophen ??? HYDROcodone-acetaminophen ??? ondansetron ODT OR ondansetron Sodium Date Value Ref Range Status 10/10/2021 136 135 - 145 mmol/L Final Potassium, pl Date Value Ref Range Status 10/10/2021 3.8 3.3 - 4.9 mmol/L Final BUN Date Value Ref Range Status 10/10/2021 17 8 - 25 mg/dL Final Creatinine Date Value Ref Range Status 10/10/2021 0.75 (L) 0.80 - 1.30 mg/dL Final Calcium Date Value Ref Range Status 10/10/2021 8.1 (L) 8.5 - 10.3 mg/dL Final Lab Results Component Value Date HGBA1C 5.2 06/12/2021 Nursing Assessment: Last BM Date: 10/06/21 Bowel Sounds (All Quadrants): Active, Present Lew Scale Score: 18 Skin Integrity: Surgical incision, Abrasion Dietary Orders (From admission, onward) Start Ordered 10/10/21 1151 Adult Diet Regular Diet effective now Question: ([facility]) Diet type Answer: Regular 10/10/21 1151 Nutrition Needs Calculations: Calculated Energy Needs Using Equations Weight: 80.6 kg (177 lb 11.1 oz) Height: 180.3 cm (5' 11 ) Estimated Protein Needs Type of Weight Used for Estimated Protein : Current Protein Needs Based on g/k.2 Total Protein Estimated Needs (gm): 96.72 Kcal/kg Type of Weight Used for Estimated Kcals: Current Kcal/k Total Kcal/kg Estimated Needs : 2014 Nutritional Needs and Diagnosis: Nutrition Diagnosis 1: Predicted suboptimal energy intake Related to: Other (comment) Evidenced by:Physical finding Impression: Pt screened for LOS and noted surgery 10/08 for R femur fx after fall. Per chart, with sitter, has hx TBI s/p SAH 06/2021, was at [facility] and followed by RDs during that time until d/c to facility. At [facility] pt had received TF until pureed diet and ONS started. Weight then 189lb. Pt with current bed scale 177lb but also noted weight 180lb per 08/04 SNF note and noted fair intake. Documented meals here varied. Discussed with RN, pt had previously been on pureed diet at [facility] and when admitted to facility. Unsure if had been continued on. Pt needs to be fed and RN notes no issues were noted on regular diet but will monitor need for HYDROGRAPHIC SURVEYOR consult. Likely would benefit from supplement. Will add Ensure Enlive BID. Plan: Ensure Enlive BID. Follow for further assessment. Intervention and Monitoring: Goals: Oral intake to meet 75% estimated nutritional needs by next assessment Interventions: Medical food supplement Monitoring and Evaluation: Plan of care, Supplement tolerance, PO intake Glenis Khan RD,LD * Rosey Saqib Donavna, - 10/10/2021 1:40 PM CDT General Medicine Daily Progress Note Hospital Course 71 y.o.??year old male??with a pmhx of A-fib on no anticoagulation due to prior SAH, CHF, HTN, legally blind, A&Ox1 at baseline??who presented after being found unresponsive in his wheelchair while at home. In the ED here, he presented here with vitals notable for systolic in the 50s and bradycardia. Started on sepsis protocol, given 30 cc/kg fluids. BP improved and admitted to the floors.??He was tested positive for COVID-19 and sepsis is presumably due to viral etiology. He was given Remdesivir, no steroid because pt is not hypoxic. ?? The patient had another unwitnessed fall here in the hospital on 10/07 and was found to have right femur fracture. ??He underwent right??Das and El Trigen Intertan trochanteric nailing of intertrochanteric femur fracture 10/08. 10/10/21: Jania is laying in bed being fed breakfast this morning. He denies any pain but remains oriented toself only. Objective Vitals: 24hr Min/Max: Temp Min: 36.4 ??C (97.5 ??F) Max: 36.6 ??C (97.9 ??F) Pulse Min: 79 Max: 95 BP Min: 118/76 Max: 133/93 Resp Min: 18 Max: 18 SpO2 Min: 89 % Max: 94 % Most Recent : Vitals: 10/10/21 0840 BP: 118/76 Pulse: 79 Resp: 18 Temp: 36.6 ??C (97.9 ??F) SpO2: 93% I/O last 2 completed shifts: In: 250 [P.O.:250] Out: 150 [Urine:150] I/O this shift: In: 180 [P.O.:180] Out: - Physical Exam: General: Patient in no acute distress, alert and oriented to self only HEENT: Normocephalic, atraumatic, sclera non-icteric Lungs: Normal respiratory effort, on room air Abd: soft, non-tender, non-distended Skin: No rash Extremities: No edema Neuro: No focal motor sensory deficits Lab/Radiology/Diagnostic Review: Recent Labs Lab Units 10/10/2149 10/10/21 0640 10/09/21 0625 10/09/21 0615 10/08/21 0241 10/05/21 0544 10/04/21 1322 SODIUM mmol/L 136 -- -- 138 136 < > 136 POTASSIUM PLASMA mmol/L 3.8 -- -- 3.8 3.7 < > 3.3 CHLORIDE mmol/L 103 -- -- 105 103 < > 102 CO2 mmol/L 23 -- -- 25 27 < > 26 ANIONGAP mmol/L 10 -- -- 8 6 < > 8 GLUCOSE mg/dL 97 -- -- 115 109 < > 121 POC GLUCOSE MONITOR mg/dL -- 94 106 -- -- -- -- BUN SERUM mg/dL 17 -- -- 13 11 < > 10 CREATININE mg/dL 0.75* -- -- 0.75* 0.77* < > 0.95 CALCIUM mg/dL 8.1* -- -- 8.2* 8.2* < > 8.5 ALBUMIN g/dL -- -- -- -- -- -- 3.2* ALK PHOS Units/L -- -- -- -- -- -- 118 ALT Units/L -- -- -- -- -- -- 17 AST Units/L -- -- -- -- -- -- 32 BILIRUBIN TOTAL mg/dL -- -- -- -- -- -- 0.4 < > = values in this interval not displayed. Recent Labs Lab Units 10/10/2164810/09/21 0615 10/08/21 0246 WBC K/cumm 7.2 4.8 4.7 HEMOGLOBIN g/dL 10.1* 9.8* 10.9* HEMATOCRIT % 30.9* 29.7* 32.7* PLATELETS K/cumm 105* 99* 120* Assessment: Principal Problem: Sepsis due to COVID-19 ([facility]) ([facility]) Active Problems: Chronic systolic heart failure ([facility]) ([facility]) TBI (traumatic brain injury) ([facility]) ([facility]) Orthostatic hypotension COPD (chronic obstructive pulmonary disease) ([facility]) ([facility]) Benign prostatic hyperplasia with lower urinary tract symptoms Plan: Treatment Team: Consulting Physician: Miguel Flores MD Fall 10/07 Acute right intertrochanteric femur fracture -CT brain negative -s/p right??Thiago and El Trigen Intertan trochanteric nailing of intertrochanteric femur fracture 10/08 -post op per ortho -WBAT -PT/OT -ASA 81 BID (DVT PPx per ortho) ?? Severe sepsis due to COVID 19 COVID 19 infection Thrombocytopenia likely due to sepsis-better - improved with IVF. No other source of infection identified.??Likely all related to covid infection. - completed remdesvir ?? 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 Essential HTN Hypotension on admisison -cont Terazsin and lopressor VTE PPx: ASA 81 BID (per ortho) Code Status: Full Code MDM: Moderate Disposition: Will need SNF whenever cleared by PT/OT Saqib Currie DO, MS, FACP, FACOI * Miguel Flores MD - 10/09/2021 2:44 PM CDT Orthopedic Hip Progress Note Assessment/Plan Status post-right hip IM nail: Doing OK postoperatively. Unable to respond follow commands Pain Relief: no relief Continues current post-op course Activity: ad mireille Weight Bearing: WBAT LOS: 5 days Subjective Post-Operative Day: 1 post-right hip IM nail Systemic or Specific Complaints: No Complaints Objective Vital signs in last 24 hours: Temp: [36.4 ??C (97.5 ??F)-36.7 ??C (98 ??F)] 36.4 ??C (97.5 ??F) Pulse: [86-106] 86 Resp: [16-18] 18 BP: (131-142)/(87-95) 136/95 General: appears stated age and cooperative Neurovascular: Unable to assess Capillary refill: Normal Wound: Dressing falling off but wound intact Range of Motion: Limited flexion DVT Exam: No evidence of DVT seen on physical exam. Data Review CBC: Recent Labs Lab Units 10/09/21 0615 WBC K/cumm 4.8 RBC M/cumm 3.18* HEMOGLOBIN g/dL 9.8* HEMATOCRIT % 29.7* Miguel Flores MD Date: 10/09/2021 Time: 2:44 PM * Elisa Oliva MD - 10/09/2021 6:28 AM CDT General Medicine Daily Progress Admit date: 10/04/2021 1:01 PM Reason for visit/follow up Chief Complaint: AMS Hospital course 71 y.o. year old male with a pmhx of A-fib on no anticoagulation due to prior SAH, CHF, HTN, legally blind, A&Ox1 at baseline who presented after being found unresponsive in his wheelchair while at home. In the ED here, he presented here with vitals notable for systolic in the 50s and bradycardia. Started on sepsis protocol, given 30 cc/kg fluids. BP improved and admitted to the floors. He was tested positive for COVID-19 and sepsis is presumably due to viral etiology. He was given Remdesivir, no steroid because pt is not hypoxic. ?? The patient had another unwitnessed fall here in the hospital on 10/07 and was found to have right femur fracture. He underwent Right Das and Nephew Trigen Intertan trochanteric nailing of intertrochanteric femur fracture 10/08. ? New Symptoms No acute event. Pt is pleasantly confused, holding his right hip appear to be in pain. Data Vitals: 24hr Min/Max: Temp Min: 36.4 ??C (97.6 ??F) Max: 36.7 ??C (98 ??F) Pulse Min: 86 Max: 106 BP Min: 102/73 Max: 142/88 Resp Min: 0 Max: 18 SpO2 Min: 94 % Max: 100 % Most Recent : Vitals: 10/09/21 0500 BP: 138/87 Pulse: 87 Resp: 18 Temp: 36.6 ??C (97.8 ??F) SpO2: 96% I/O last 2 completed shifts: In: 1100 [I.V.:1100] Out: 30 [Blood:30] No intake/output data recorded. Lab/Radiology/Diagnostic Review: Recent Labs Lab Units 10/08/21 0241 10/07/21 0630 10/06/21 0639 SODIUM mmol/L 136 137 139 POTASSIUM PLASMA mmol/L 3.7 2.9* 3.0* CHLORIDE mmol/L 103 103 103 CO2 mmol/L 27 26 26 BUN SERUM mg/dL 11 8 11 CREATININE mg/dL 0.77* 0.67* 0.73* GLUCOSE mg/dL 109 77 77 CALCIUM mg/dL 8.2* 8.1* 8.3* Recent Labs Lab Units 10/08/21 0246 10/07/21 0630 10/06/21 0639 WBC K/cumm 4.7 3.9 4.9 HEMOGLOBIN g/dL 10.9* 11.6* 12.9* HEMATOCRIT % 32.7* 35.0* 39.2 PLATELETS K/cumm 120* 134* 158 Physical Exam: General appearance: alert, cooperative, no distress, comfortable. Lungs: breath sounds normal and symmetric; no rales or wheezes Heart: regular rhythm, normal S1 and S2, without murmurs, gallops or rubs Abdomen: soft without mass, non-tender, with normal bowel sounds Extremities: no clubbing, cyanosis or edema. Right hip tender Head: Normocephalic, without trauma Eyes: sclera and conjunctiva clear, EOMI and PERRLA, lids normal Nose: nares open; no septal deviation is noted Joints: ranges of motion normal without inflammation, effusion or deformity Skin: no rashes or other abnormalities are noted Scheduled Medications: aspirin, 81 mg, oral, Daily aspirin, 81 mg, oral, BID budesonide-formoteroL, 2 puff, inhalation, BID (RT) enoxaparin, 40 mg, subcutaneous, Daily-2100 folic acid, 1 mg, oral, Daily metoprolol, 100 mg, oral, BID pantoprazole DR, 40 mg, oral, Daily pravastatin, 40 mg, oral, Daily terazosin, 10 mg, oral, Nightly thiamine, 100 mg, oral, QAM PRN Medications: ??? acetaminophen ??? HYDROcodone-acetaminophen ??? ondansetron ODT OR ondansetron Assessment and plan Principal Problem: Sepsis due to COVID-19 (CMS/HCC) ([facility]) Active Problems: Chronic systolic heart failure (CMS/HCC) ([facility]) TBI (traumatic brain injury) ([facility]) ([facility]) Orthostatic hypotension COPD (chronic obstructive pulmonary disease) ([facility]) ([facility]) Benign prostatic hyperplasia with lower urinary tract symptoms Fall 10/07 Acute right intertrochanteric femur fracture -CT brain negative -s/p Right Das and Nephew Trigen Intertan trochanteric nailing of intertrochanteric femur fracture 10/08 -post op per ortho Severe sepsis due to COVID 19 COVID 19 infection Thrombocytopenia likely due to sepsis-better - improved with IVF. No other source of infection identified. Likely all related to covid infection. - completed remdesvir ?? 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 ESTIMATED LENGTH OF STAY:?? Greater than 2 midnights Medical complexity / risk: High * Florencia Enriquez RRT - 10/08/2021 9:07 PM CDT 10/08/21 2100 RT Protocol Assessment RT Assessment Scoring Needed Bronchodilator Bronchodilator Assessment Scoring Pulmonary Status 3 Surgical Status <30 days ago 0 Chest X-Ray < WEEK 1 Respiratory Pattern 0 Mental Status/LOC 0 Cough 0 Breath Sounds 2 Level of Activity 1 Bronhcodilator Assessment Score 7 Oxygen Required for SPO2 >92% 0 Impression: Patient on room air with clear/diminished breath sounds. Plan: Continue with current regimen and reassess in 24 hours. * Elisa Oliva MD - 10/08/2021 9:18 AM CDT General Medicine Daily Progress Admit date: 10/04/2021 1:01 PM Reason for visit/follow up Chief Complaint: AMS Hospital course 71 y.o. year old male with a pmhx of A-fib on no anticoagulation due to prior SAH, CHF, HTN, legally blind, A&Ox1 at baseline who presented to the ED after being found unresponsive in his wheelchair while at home. In the ED here, he presented here with vitals notable for systolic in the 50s andbradycardia. Started on sepsis protocol, given 30 cc/kg fluids. BP improved and admitted to the floors. He was tested positive for COVID-19 and sepsis is presumably due to viral etiology. He was given Remdesivir, no steroid because pt is not hypoxic. ?? The patient had another unwitnessed fall here in the hospital on 10/07 and was found to have right femur fracture. Orthopedic surgery has been consulted and plan for surgery today. ? New Symptoms Pt is sleeping. He is scheduled for hip surgery this morning. Data Vitals: 24hr Min/Max: Temp Min: 36.6 ??C (97.8 ??F) Max: 36.8 ??C (98.2 ??F) Pulse Min: 81 Max: 95 BP Min: 123/71 Max: 157/105 Resp Min: 18 Max: 18 SpO2 Min: 94 % Max: 98 % Most Recent : Vitals: 10/08/21 0152 BP: 142/92 Pulse: 81 Resp: 18 Temp: 36.6 ??C (97.9 ??F) SpO2: 98% No intake/output data recorded. No intake/output data recorded. Lab/Radiology/Diagnostic Review: Recent Labs Lab Units 10/08/21 0241 10/07/21 0630 10/06/21 0639 SODIUM mmol/L 136 137 139 POTASSIUM PLASMA mmol/L 3.7 2.9* 3.0* CHLORIDE mmol/L 103 103 103 CO2 mmol/L 27 26 26 BUN SERUM mg/dL 11 8 11 CREATININE mg/dL 0.77* 0.67* 0.73* GLUCOSE mg/dL 109 77 77 CALCIUM mg/dL 8.2* 8.1* 8.3* Recent Labs Lab Units 10/08/21 0246 10/07/21 0630 10/06/21 0639 WBC K/cumm 4.7 3.9 4.9 HEMOGLOBIN g/dL 10.9* 11.6* 12.9* HEMATOCRIT % 32.7* 35.0* 39.2 PLATELETS K/cumm 120* 134* 158 Physical Exam: General appearance: alert, cooperative, no distress, comfortable. Lungs: breath sounds normal and symmetric; no rales or wheezes Heart: regular rhythm, normal S1 and S2, without murmurs, gallops or rubs Abdomen: soft without mass, non-tender, with normal bowel sounds Extremities: no clubbing, cyanosis or edema. Right hip tender Head: Normocephalic, without trauma Eyes: sclera and conjunctiva clear, EOMI and PERRLA, lids normal Nose: nares open; no septal deviation is noted Joints: ranges of motion normal without inflammation, effusion or deformity Skin: no rashes or other abnormalities are noted Scheduled Medications: aspirin, 81 mg, oral, Daily budesonide-formoteroL, 2 puff, inhalation, BID (RT) enoxaparin, 40 mg, subcutaneous, Daily-2100 folic acid, 1 mg, oral, Daily magnesium sulfate, 2 g, intravenous, Once metoprolol, 100 mg, oral, BID pantoprazole DR, 40 mg, oral, Daily pravastatin, 40 mg, oral, Daily remdesivir, 100 mg, intravenous, Q24H terazosin, 10 mg, oral, Nightly thiamine, 100 mg, oral, QAM PRN Medications: ??? acetaminophen ??? ondansetron ODT OR ondansetron Assessment and plan Principal Problem: Sepsis due to COVID-19 (CMS/HCC) ([facility]) Active Problems: Chronic systolic heart failure (CMS/HCC) ([facility]) TBI (traumatic brain injury) (CMS/HCC) ([facility]) Orthostatic hypotension COPD (chronic obstructive pulmonary disease) (CMS/HCC) ([facility]) Benign prostatic hyperplasia with lower urinary tract symptoms Fall Acute right intertrochanteric femur fracture -CT brain negative -plan for hip surgery today Severe sepsis due to COVID 19 COVID 19 infection Thrombocytopenia likely due to sepsis-better - improved with IVF. No other source of infection identified. Likely all related to covid infection. - cont remdesvir ?? 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 ESTIMATED LENGTH OF STAY:?? Greater than 2 midnights Medical complexity / risk: High * Elisa Oliva MD - 10/07/2021 9:43 AM CDT General Medicine Daily Progress Admit date: 10/04/2021 1:01 PM Reason for visit/follow up Chief Complaint: AMS New Symptoms Pt has an unwitnessed fall this morning. The therapist heard the fall and went into the room, found him next to the wall on the ground on his back. C/o pain at the right buttock. CT brain negative. Hip xray showed acute right intertrochanteric femur fracture. I spoke to the , [facility]. I discussed with the charge nurse and nurse. Orthopedic is consulted. Data Vitals: 24hr Min/Max: Temp Min: 36.4 ??C (97.5 ??F) Max: 36.4 ??C (97.5 ??F) Pulse Min: 82 Max: 107 BP Min: 138/100 Max: 161/99 Resp Min: 18 Max: 18 SpO2 Min: 98 % Max: 99 % Most Recent : Vitals: 10/07/21 0421 BP: 161/99 Pulse: 91 Resp: Temp: SpO2: 98% I/O last 2 completed shifts: In: 200 [IV Piggyback:200] Out: - No intake/output data recorded. Lab/Radiology/Diagnostic Review: Recent Labs Lab Units 10/06/21 0639 10/05/21 0544 10/04/21 1322 SODIUM mmol/L 139 140 136 POTASSIUM PLASMA mmol/L 3.0* 3.7 3.3 CHLORIDE mmol/L 103 108 102 CO2 mmol/L 26 21* 26 BUN SERUM mg/dL 11 11 10 CREATININE mg/dL 0.73* 0.81 0.95 GLUCOSE mg/dL 77 89 121 CALCIUM mg/dL 8.3* 8.0* 8.5 Recent Labs Lab Units 10/06/21 0639 10/05/21 0544 10/04/21 1322 WBC K/cumm 4.9 2.5* 2.6* HEMOGLOBIN g/dL 12.9* 11.2* 12.0* HEMATOCRIT % 39.2 32.8* 36.4* PLATELETS K/cumm 158 124* 122* Physical Exam: General appearance: alert, cooperative, no distress, comfortable. Lungs: breath sounds normal and symmetric; no rales or wheezes Heart: regular rhythm, normal S1 and S2, without murmurs, gallops or rubs Abdomen: soft without mass, non-tender, with normal bowel sounds Extremities: no clubbing, cyanosis or edema. Right hip tender Head: Normocephalic, without trauma Eyes: sclera and conjunctiva clear, EOMI and PERRLA, lids normal Nose: nares open; no septal deviation is noted Joints: ranges of motion normal without inflammation, effusion or deformity Skin: no rashes or other abnormalities are noted Scheduled Medications: aspirin, 81 mg, oral, Daily budesonide-formoteroL, 2 puff, inhalation, BID (RT) enoxaparin, 40 mg, subcutaneous, Daily-2100 folic acid, 1 mg, oral, Daily metoprolol, 100 mg, oral, BID pantoprazole DR, 40 mg, oral, Daily pravastatin, 40 mg, oral, Daily remdesivir, 100 mg, intravenous, Q24H terazosin, 10 mg, oral, Nightly thiamine, 100 mg, oral, QAM PRN Medications: ??? acetaminophen ??? ondansetron ODT OR ondansetron Assessment and plan Principal Problem: Sepsis due to COVID-19 (CMS/HCC) ([facility]) Active Problems: Chronic systolic heart failure (CMS/HCC) ([facility]) TBI (traumatic brain injury) (CMS/HCC) ([facility]) Orthostatic hypotension COPD (chronic obstructive pulmonary disease) (CMS/[facility]) ([facility]) Benign prostatic hyperplasia with lower urinary tract symptoms Fall Acute right intertrochanteric femur fracture -CT brain negative -ortho consult, cardiac clearance -CT right hip Severe sepsis due to COVID 19 COVID 19 infection Thrombocytopenia likely due to sepsis-better - improved with IVF. No other source of infection identified. Likely all related to covid infection. - cont remdesvir ?? 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 Hypokalemia, hypoMg -replace Code status: Full Code ?? ESTIMATED LENGTH OF STAY:?? Greater than 2 midnights Medical complexity / risk: High Dispo: Return to SNF Discussed with house LORI Gabriel, the [facility], Ortho Dr Flores and nurses. * Mychal Gabriel PA - 10/07/2021 9:08 AM CDT Fall Subjective: Was asked to see pt by RN when pt was found down on ground in room. Physical therapy was working with pt across cooper when heard a loud noise in room. When she went in to check pt was found down next to wall on his back on the floor. Pt has dementia and has been getting up out of bed without assistance several times already this morning. Over the past few days pt has had a sitter but this was discontinued this AM. Pt at this time is complaining of pain in the middle of my butt. States he did not hit his head or lose consciousness. Denies any other neck, head, or back pain. Denies pain to legs or arms. Pt is only oriented to self and place however so unsure if history is credible. Objective: General Pt lying in bed in NAD Head: Atraumatic, nontender to palpation to head. No signs of contusions, ecchymosis, or bleeding. Spine: nontender to palpation of cervical, thoracic, or lumbar spine. Hips: minor tenderness when pressing on hips, tenderness radiates to middle of backside. Musculoskeletal: pt able to move upper and lower extremities without issues. Non tender to palpation of extremities. No tenderness in hips when moving LE. A/P; 1. Fall Unwitnessed - Pt having mid posterior pelvic pain. Will get xray of pelvis and hips. Also with fall being unwitnessed and pts hx of dementia, will get non contrast head ct to r/o any head injury. Discussed with Dr. Oliva who will follow up with results. * Diamond Das, OT - 10/06/2021 2:29 PM CDT Occupational Therapy 10/06/21 1429 General Session Type Treatment OT Received On 10/06/21 Safe Environment Arm Band Checked;Bed Alarm placed and activated;Chair Alarm placed and activated;Call Light within Reach;Notified RN Subjective Agreeable to Therapy Family/Caregiver Present No Precautions Precautions Bed/Chair Alarm;Fall risk;Hearing Precaution Comments Pt has sitter in room d/t confusion and pt being a high fall risk. Pain Assessment Pain Assessment No/denies pain Pain Score 0 - No pain Clinical Progression Not changed Grooming Grooming: Where assessed Standing at sink Grooming: Level of assistance Moderate Assist Grooming: Assistance with Standing with assistive device;Teeth care;Manipulation of containers;Appropriate use of ADL items;Attending to task (Pt unable to find toothbrush or cut on sink ledge. Pt req. minimal assist for standing d/t poor balance as he loses his balance in multiple directions.) LE Dressing LE Dressing: Level of assistance Maximum Assist LE Dressing: Assistance with (Pt does not complete with OT cuing.) Toileting Toileting: Equipment utilized (Upon arrival pt had been incontinent while standing of urine. Max assist for clean up.) Bed Mobility 1 Bed Mobility Comments 1 NA- pt is up in chair upon arrival. Transfer 1 Trials/Comments 1 Sit <> stand minimal assist with cues for safe hand placement. Pt unsteady while standing at w/w. Pt ambulates 10 feet to sink with w/w and minimal assist. Ambulates 10 feet back to chair with w/w and minimal assist. Req. moderate assist for stand to sit d/t pt not reaching back for arm rests and having an uncontrolled descent. Cognition Cognition Comments Pt is [place]. Also has limited vision. Overall Cognitive Status Impaired Arousal/Alertness Alert;Delayed responses to stimuli Attention Span Difficulty attending to directions;Distractability Memory Decreased short term memory;Decreased terminal make up operator memory;Decreased recall of recent events;Decreased recall of precautions;Decreased recall of biographical information Current communication Appears Intact Orientation Oriented to person Following Commands Follows one step commands with repetition (Pt does not follow commands consistently- follows approx 25% of time.) Safety Judgment Impulsive Awareness of Errors Decreased awareness of errors Insight Decreased awareness of deficits Problem Solving Assistance required to implement solutions Compliance/Behavior Easy to engage (Pt does not understand scope and benefits of OT.) Additional Activities Additional Activities Comments Attempted UE exercises but pt unable to follow commands. Activity Tolerance Activity Tolerance Comments Vitals after activity: O2 99% on RA, HR 108, BP 154/105- informed RN ofincreased BP. Assessment Prognosis Fair Problem List Decreased cognition;Decreased endurance;Visual deficit;Decreased balance;Decreased functional mobility;Decreased ADL independence;Decreased IADL independence Plan Plan Continue with current plan;If this is the last note, consider this the discharge summary Recommendation/Plan OT Recommendation (S) Intermediate Facility Patient at high risk for Falls;Readmission;Injury due to decreased ability to care for self;Injury due to impaired cognition;Injury due to reduced functional status;Injury due to balance deficits Recommend SNF due to Risk of injury at home;Unable to safely care for self in the home;Skilled therapy needed to address functional deficits OT Frequency 3-5x/wk Progress Slow progress, cognitive deficits Education: Patient has been educated on the role of OT, safety, precautions, ADL training, mobilitytraining, body mechanics, and use of adaptive equipment/DME. Education completed via verbal instruction. Patient demonstrates no evidence of learning Multi-Disciplinary Problems (from Occupational Therapy) Active Problems Problem: OT Misc Start Date: 10/05/21 Goal Start Date Expected End Date End Date Pt. will complete total body dressing SBA 10/05/21 10/19/21 -- Goal Start Date Expected End Date End Date Pt. will complete grooming SBA 10/05/21 10/19/21 -- Goal Start Date Expected End Date End Date Pt. will complete toileting SBA 10/05/21 10/19/21 -- Goal Start Date Expected End Date End Date Pt. will complete bathing with SBA 10/05/21 10/19/21 -- * Elisa Oliva MD - 10/06/2021 11:19 AM CDT General Medicine Daily Progress Admit date: 10/04/2021 1:01 PM Reason for visit/follow up Chief Complaint: AMS New Symptoms No acute event. Pt is comfortable, pleasantly confused. BP imcreasing and not hypoxic. Data Vitals: 24hr Min/Max: Pulse Min: 85 Max: 99 BP Min: 137/73 Max: 142/74 Resp Min: 21 Max: 21 SpO2 Min: 98 % Max: 99 % Most Recent : Vitals: 10/06/21 0952 BP: 138/100 Pulse: 99 Resp: Temp: SpO2: I/O last 2 completed shifts: In: 660 [P.O.:360; IV Piggyback:300] Out: 500 [Urine:500] No intake/output data recorded. Lab/Radiology/Diagnostic Review: Recent Labs Lab Units 10/06/21 0639 10/05/21 0544 10/04/21 1322 SODIUM mmol/L 139 140 136 POTASSIUM PLASMA mmol/L 3.0* 3.7 3.3 CHLORIDE mmol/L 103 108 102 CO2 mmol/L 26 21* 26 BUN SERUM mg/dL 11 11 10 CREATININE mg/dL 0.73* 0.81 0.95 GLUCOSE mg/dL 77 89 121 CALCIUM mg/dL 8.3* 8.0* 8.5 Recent Labs Lab Units 10/06/21 0639 10/05/21 0544 10/04/21 1322 WBC K/cumm 4.9 2.5* 2.6* HEMOGLOBIN g/dL 12.9* 11.2* 12.0* HEMATOCRIT % 39.2 32.8* 36.4* PLATELETS K/cumm 158 124* 122* Physical Exam: General appearance: alert, cooperative, no distress Lungs: breath sounds normal and symmetric; no rales or wheezes Heart: regular rhythm, normal S1 and S2, without murmurs, gallops or rubs Abdomen: soft without mass, non-tender, with normal bowel sounds Extremities: no clubbing, cyanosis or edema Head: Normocephalic, without trauma Eyes: sclera and conjunctiva clear, EOMI and PERRLA, lids normal Nose: nares open; no septal deviation is noted Joints: ranges of motion normal without inflammation, effusion or deformity Skin: no rashes or other abnormalities are noted Scheduled Medications: aspirin, 81 mg, oral, Daily budesonide-formoteroL, 2 puff, inhalation, BID (RT) enoxaparin, 40 mg, subcutaneous, Daily-2100 folic acid, 1 mg, oral, Daily metoprolol, 25 mg, oral, BID pantoprazole DR, 40 mg, oral, Daily pravastatin, 40 mg, oral, Daily remdesivir, 100 mg, intravenous, Q24H thiamine, 100 mg, oral, QAM PRN Medications: ??? acetaminophen ??? ondansetron ODT OR ondansetron Assessment and plan Principal Problem: Sepsis due to COVID-19 (CMS/HCC) ([facility]) Active Problems: Chronic systolic heart failure (CMS/HCC) (HCC) TBI (traumatic brain injury) (CMS/HCC) ([facility]) Orthostatic hypotension COPD (chronic obstructive pulmonary disease) (CMS/HCC) ([facility]) Benign prostatic hyperplasia with lower urinary tract symptoms Severe sepsis due to COVID 19 COVID 19 infection Thrombocytopenia likely due to sepsis-better - improved with IVF. No other source of infection identified. Likely all related to covid infection. - cont remdesvir ?? 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 Hypokalemia-replace Code status: Full Code ?? ESTIMATED LENGTH OF STAY:?? Greater than 2 midnights Medical complexity / risk: moderate Dispo: Return to SNF * Mirna Gomez, PT - 10/06/2021 9:59 AM CDT Physical Therapy Evaluation 10/06/21 0959 General Chart Reviewed Yes Session Type Evaluation PT Received On 10/06/21 Safe Environment Arm Band Checked;Chair Alarm placed and activated;Call Light within Reach;NotifiedRN (sitter present at beginning and end of session) Subjective Agreeable to Therapy Additional Pertinent History Pt is a 71 y/o male admitted with altered mental status, found unresponsive in w/c in the presence of severe sepsis due to COVID 19. CT of head showing not new acute hemorrhage. PMH includes AFib not on antiocoagulation due to prior SAH, CHF, HTN, legally blind, A&Ox1. Family/Caregiver Present No Physical Therapy-Patient Goal Get back to PLOF. Precautions Precautions Bed/Chair Alarm;Fall risk Home Living Additional Comments Pt is an unreliable historian. Per notes, pt. lives in the [facility]. Prior Function Fall within the last 6 months Yes Fall within the last 6 months comment pt reports daily falls, unsure if this is accurate Activity Tolerance Activity Tolerance Comments Pre activity vitals SpO2 94%, HR 94, BP 125/104. BP following transfer 152/97. Post activity vitals SpO2 97%, HR 102, BP 144/108. Pain Assessment Pain Assessment 0-10 Pain Score 6 Pain Location Back (Lumbar) Clinical Progression Gradually improving (not formally rated, pt reports improvement with mobility) Cognition Arousal/Alertness Alert;Appropriate responses to stimuli Orientation Oriented to person Following Commands Follows one step commands with increased time Safety Judgment Decreased awareness of need for safety Awareness of Errors Decreased awareness of errors Insight Decreased awareness of deficits Problem Solving Assistance required to identify errors made;Assistance required to generate solutions Compliance/Behavior Easy to engage Motor Planning Motor Planning Appears intact Coordination Movements are Fluid and Coordinated 0 Fine Finger Movement Impaired;Right Finger Nose Finger Impaired;Right Balance Balance (16/ Tinetti indicating high fall risk) Bed Mobility 1 Bed Mobility From 1 Supine Bed Mobility Type 1 To Bed Mobility to 1 Edge of bed Level of Assistance 1 Minimum Assist Bed Mobility Comments 1 Supine>EOB with minimal assist for trunk management. Pt reaches for PTs hand to help lift trunk to seated position. Transfer 1 Transfer From 1 Sit Transfer Type 1 To and from Transfer to 1 Stand Technique 1 Sit to stand;Stand to sit Transfer Device 1 Wheeled walker Transfer Level of Assistance 1 Minimum Assist Trials/Comments 1 Sit<>Stand with WW and minimal assist. Pt relies on assist from LEs pushingagainst EOB/chair. Pt maintains posterior lean upon rising, VCs to shift weight to toes. Pt demonstrates decreased eccentric control when sitting, VCs for hand placement. Transfers 2 Transfer From 2 Bed Transfer Type 2 To Transfer to 2 Chair with arms Technique 2 Sit to stand;Stand to sit Transfer Device 2 Wheeled walker Transfer Level of Assistance 2 Minimum Assist Trials/Comments 2 Bed>chair with WW and minimal assist for dynamic balance. VCs for hand placement and sequencing. Ambulation 1 Distance (ft) 1 40ft Surface 1 Level tile Device 1 Wheeled walker Assistance 1 Minimum Assist Gait: Requires assist with 1 Maintaining balance Gait: Requires verbal cues to 1 Use assistive device safely;Utilize appropriate gait sequencing;Improve upright posture;Increase step length;Pace activity Quality of Gait 1 slow vahid, narrow CHERRY, scissoring gait, variable step length, unsteady with turns, flexed posture Ambulation Comments 1 Pt ambulated 40ft with WW and minimal assist to maintain balance. Pt demonstrates scissoring gait and tendency to brush feet against one another. Unsteadiness increases with turns. RLE Assessment RLE Assessment WFL LLE Assessment LLE Assessment WFL Other Comments Other PT Comments Pt limited due to impaired cognition, decreased safety awareness, decreased dynamic balance, and decreased activity tolerance. Pt scored a 16/28 on Tinetti Balance Assessment indicating high fall risk, pt also reports daily falls. Pt requires VCs for safety with mobility includingsafe hand placement with WW. Pt would benefit from ongoing skilled PT to progress safety and independence with mobility. Assessment Prognosis Good Problem List Gait deviations;Decreased strength;Decreased endurance;Impaired balance;Decreased mobility;Decreased coordination;Decreased cognition;Impaired judgement;Decreased safety awareness Plan Plan Plan of care initiated;If this is the last note, consider this the discharge summary Recommendation/Plan PT Recommendation/Plan (S) Intermediate Facility Recommend SNF due to Skilled therapy needed to address functional deficits PT Frequency 3-5x/wk Treatment/Interventions Balance Training;Bed mobility;Endurance training;Equipment eval/education;Functional activity;Functional transfer training;Gait training;Stair training;Strengthening;Therapeutic activity;Therapeutic exercise;Transfer training PT Equipment Recommended Wheeled walker PT Evaluation Complete Yes Education: Patient has been educated on the role of PT, safety , precautions, and mobility training. Education completed via explanation and demonstration. Patient verbalized understanding and demonstrated understanding Multi-Disciplinary Problems (from Physical Therapy) Active Problems Problem: PT [facility] Start Date: 10/06/21 Goal Start Date Expected End Date End Date PT LT - [facility] 1 10/06/21 10/20/21 -- Goal Details: Pt will perform all OOB transfers with modified independence and least restrictive assistive device prior to discharge. Goal Start Date Expected End Date End Date PT [facility] - [facility] 2 10/06/21 10/20/21 -- Goal Details: Pt will ambulate 150ft with modified independence and least restrictive assistive device prior to discharge. Goal Start Date Expected End Date End Date PT LTG - Misc 3 10/06/21 10/20/21 -- Goal Details: Pt will increase Tinetti Balance Assessment score to 23/28 to demonstrate decreased fall risk prior to discharge. * Elisa Oliva MD - 10/05/2021 11:28 AM CDT General Medicine Daily Progress Admit date: 10/04/2021 1:01 PM Reason for visit/follow up Chief Complaint: MS New Symptoms Patient denies chest pain, shortness of breath, abdominal pain, nausea, vomiting, diarrhea, constipation, urinary problems or leg pain. He is AAOX1, comfortable. He is off O2. Data Vitals: 24hr Min/Max: Temp Min: 35.8 ??C (96.4 ??F) Max: 36.7 ??C (98.1 ??F) Pulse Min: 62 Max: 106 BP Min: 70/56 Max: 167/110 Resp Min: 12 Max: 25 SpO2 Min: 92 % Max: 100 % Most Recent : Vitals: 10/05/21 1100 BP: 152/98 Pulse: 90 Resp: 20 Temp: 36.5 ??C (97.7 ??F) SpO2: 99% I/O last 2 completed shifts: In: 450 [IV Piggyback:450] Out: 950 [Urine:950] No intake/output data recorded. Lab/Radiology/Diagnostic Review: Recent Labs Lab Units 10/05/21 0544 10/04/21 1322 SODIUM mmol/L 140 136 POTASSIUM PLASMA mmol/L 3.7 3.3 CHLORIDE mmol/L 108 102 CO2 mmol/L 21* 26 BUN SERUM mg/dL 11 10 CREATININE mg/dL 0.81 0.95 GLUCOSE mg/dL 89 121 CALCIUM mg/dL 8.0* 8.5 Recent Labs Lab Units 10/05/21 0544 10/04/21 1322 WBC K/cumm 2.5* 2.6* HEMOGLOBIN g/dL 11.2* 12.0* HEMATOCRIT % 32.8* 36.4* PLATELETS K/cumm 124* 122* Physical Exam: General appearance: alert, cooperative, no distress Lungs: breath sounds normal and symmetric; no rales or wheezes Heart: regular rhythm, normal S1 and S2, without murmurs, gallops or rubs Abdomen: soft without mass, non-tender, with normal bowel sounds Extremities: no clubbing, cyanosis or edema Head: Normocephalic, without trauma Eyes: sclera and conjunctiva clear, EOMI and PERRLA, lids normal Nose: nares open; no septal deviation is noted Joints: ranges of motion normal without inflammation, effusion or deformity Skin: no rashes or other abnormalities are noted Scheduled Medications: aspirin, 81 mg, oral, Daily budesonide-formoteroL, 2 puff, inhalation, BID (RT) cefepime, 2,000 mg, intravenous, Q8H MONET enoxaparin, 40 mg, subcutaneous, Daily-2100 folic acid, 1 mg, oral, Daily pantoprazole DR, 40 mg, oral, Daily pravastatin, 40 mg, oral, Daily remdesivir, 100 mg, intravenous, Q24H thiamine, 100 mg, oral, QAM PRN Medications: ??? acetaminophen ??? ondansetron ODT OR ondansetron Assessment and plan Principal Problem: Sepsis due to COVID-19 (CMS/HCC) ([facility]) Active Problems: Chronic systolic heart failure (CMS/HCC) ([facility]) TBI (traumatic brain injury) (CMS/HCC) ([facility]) Orthostatic hypotension COPD (chronic obstructive pulmonary disease) (CMS/HCC) ([facility]) Benign prostatic hyperplasia with lower urinary tract symptoms Severe sepsis due to COVID 19 COVID 19 infection Thrombocytopenia likely due to sepsis - improved with IVF. No other source of infection identified. Likely all related to covid infection. - cont remdesvir. Hold off on steroids as pt is currently on RA - DC antibiotic, procalcitonin negative - DC Coombs ?? 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 Code status: Full Code, discussed with the /POA ?? ESTIMATED LENGTH OF STAY:?? Greater than 2 midnights Medical complexity / risk:High * Teri Je, OT - 10/05/2021 11:07 AM CDT Occupational Therapy Evaluation 10/05/21 1107 General Chart Reviewed Yes Session Type Evaluation OT Received On 10/05/21 Safe Environment Arm Band Checked;Chair Alarm placed and activated;Call Light within Reach;NotifiedRN Additional Pertinent History Admitted after being found unresponsive in his wc. Pt. dx with severe sepsis d/t Covid-19. Pt. with history of TBI d/t SAH, afib, HTN, dementia, CHF, legally blind, TIA, COPD, orthostatic hypotension Family/Caregiver Present No Occupational Therapy-Patient Goal Pt. with difficulty setting goal due to AMS; pt. agreeable to therapy Precautions Precautions Bed/Chair Alarm;Fall risk Home Living Type of Home Extended Care Facility Additional Comments Pt. unreliable historian due to AMS. EMR references that pt. lives in the [facility]. Pt. has reportedly been declining since his SDH in June Prior Function ADL Assistance Unable to obtain ADL ADLS (WDL) X Grooming Grooming: Where assessed Standing at sink Grooming: Level of assistance Moderate Assist (Pt. very unsteady with multiple losses of balance in multiple directions) Grooming: Assistance with Teeth care (brushed teeth in standing, sat to comb hair) LE Dressing LE Dressing: Where assessed Chair LE Dressing: Level of assistance Maximal Verbal Cues (When instructed by OT to take your socks off pt. continously attempts to doff gait belt & hospital gown. Pt. required max verbal + moderate physical cues to actually doff socks) LE Dressing: Assistance with Don/doff R sock;Don/doff L sock;Attending to task;Problem solving;Sequencing Pain Assessment Pain Assessment No/denies pain Clinical Progression Not changed Cognition Overall Cognitive Status Impaired Arousal/Alertness Alert Attention Span Distractability;Attends with cues to redirect Memory Decreased short term memory Current communication Appears Intact Orientation Oriented to person Following Commands Follows one step commands with repetition Safety Judgment Impulsive Awareness of Errors Assistance required to identify errors made;Assistance required to correct errors made;Decreased awareness of errors Insight Not aware of deficits Problem Solving Assistance required to identify errors made;Assistance required to generate solutions;Assistance required to implement solutions Compliance/Behavior Easy to engage Bed Mobility 1 Bed Mobility Comments 1 Upon OT entry pt. found supine in bed, vitals: 178/110, 100 bpm, 100% on room air. Supine > sit minimum assist (physical assist mostly required d/t cognitive deficits &difficulty understanding cues as opposed to weakness alone) Transfer 1 Trials/Comments 1 Stand pivot transfer EOB > recliner (90D turn) via ww minimum assist. Pt. attempts to pull up on walker (rather than pushing from bed), requires assist to turn walker, etc Transfers 2 Trials/Comments 2 Sit <> stand to/from recliner CGA/minimum assist. Pt. grooms at sink, however, pt. very unsteady with multiple LOB in various directions RUE Assessment RUE Assessment WFL LUE Assessment LUE Assessment WFL Plan Plan If this is the last note, consider this the discharge summary Recommendation/Plan OT Recommendation (S) Intermediate Facility OT Frequency 3-5x/wk OT Evaluation Complete Yes Education: Patient has been educated on the role of OT, safety, precautions, ADL training, mobilitytraining, and body mechanics. Education completed via verbal instruction. Patient needs ongoing reinforcement Multi-Disciplinary Problems (from Occupational Therapy) Active Problems Problem: OT Misc Start Date: 10/05/21 Goal Start Date Expected End Date End Date Pt. will complete total body dressing SBA 10/05/21 10/19/21 -- Goal Start Date Expected End Date End Date Pt. will complete grooming SBA 10/05/21 10/19/21 -- Goal Start Date Expected End Date End Date Pt. will complete toileting SBA 10/05/21 10/19/21 -- Goal Start Date Expected End Date End Date Pt. will complete bathing with SBA 10/05/21 10/19/21 -- * Jemma Gottlieb, ACCESS DEVELOPER - 10/05/2021 9:27 AM CDT 10/05/21 0926 RT Protocol Assessment RT Assessment Scoring Needed Bronchodilator Bronchodilator Assessment Scoring Pulmonary Status 3 Surgical Status <30 days ago 0 Chest X-Ray < WEEK 1 Respiratory Pattern 0 Mental Status/LOC 0 Cough 0 Breath Sounds 2 Level of Activity 0 Bronhcodilator Assessment Score 6 Oxygen Required for SPO2 >92% 0 RT impression: Patient appears to be at pulmonary baseline at this time, patient takes breo inhalerat home. RT plan: continue therapeutic interchanged home regimen. * Lizzeth Cueva RPh - 10/04/2021 5:21 PM CDT Remdesivir Screening Patient has confirmed COVID-19: Yes COVID-19 RNA Date Value Ref Range Status 10/04/2021 Positive (A) Negative Final ALT does not exceed 5x the upper limit of normal (> 550 units/L): Yes ALT Date Value Ref Range Status 10/04/2021 17 7 - 55 Units/L Final Lizzeth Cueva PharmD * Deann Delgadillo RP - 10/04/2021 2:33 PM CDT Pharmacokinetic Consult - Vancomycin Dosing Day 1 Jania Redman is a 71 y.o. male who has been consulted for vancomycin dosing for sepsis. Relevant clinical data and objective history reviewed: Creatinine Date Value Ref Range Status 10/04/2021 0.95 0.80 - 1.30 mg/dL Final 07/05/2021 0.79 (L) 0.80 - 1.30 mg/dL Final 07/05/2021 0.83 0.80 - 1.30 mg/dL Final 06/22/2020 0.81 0.70 - 1.25 mg/dL Final Comment: For patients >49 years of age, the reference limit for Creatinine is approximately 13% higher for people identified as -[place]. BUN Date Value Ref Range Status 10/04/2021 10 8 - 25 mg/dL Final 07/05/2021 13 8 - 25 mg/dL Final 07/05/2021 11 8 - 25 mg/dL Final 06/22/2020 7 7 - 25 mg/dL Final Estimated Creatinine Clearance: 65.3 mL/min (by C-G formula based on SCr of 0.95 mg/dL). No intake/output data recorded. Lab Results Component Value Date/Time WBC 2.6 (L) 10/04/2021 01:22 PM HGB 12.0 (L) 10/04/2021 01:22 PM HCT 36.4 (L) 10/04/2021 01:22 PM MCV 95.5 10/04/2021 01:22 PM LABPLAT 122 (L) 10/04/2021 01:22 PM Temp Readings from Last 3 Encounters: 10/04/21 36 ??C (96.8 ??F) (Bladder) 08/23/21 36.3 ??C (97.3 ??F) 08/04/21 36.8 ??C (98.3 ??F) Baseline culture/source/susceptibility: blood culture x 2 in process. Wt Readings from Last 1 Encounters: 10/04/21 80.7 kg (178 lb) Assessment/Plan The patient will be started on vancomycin utilizing scheduled dosing based on actual body weight. Baseline risks associated with therapy include: pre-existing renal impairment and advanced age. Will initiate dose at 1250 mg IV every 12 hours. Pharmacy will also follow closely for s/sx of nephrotoxicity. Serum creatinine will be ordered per policy. Plan for trough as patient approaches steady state, prior to the 4th dose. Due to infection severity, will target a trough of 15-20 ug/mL. Pharmacy will continue to follow the patient???s culture results and clinical progress daily. Vancomycin will be dose adjusted based on the following pharmacy dosing guidelines: Vancomycin Dose: Total Body weight Dose < 40 kg 500 mg 41 - 49 kg 750 mg 50 - 74 kg 1000 mg 75 - 89 kg 1250 mg 90 - 109 kg 1500 mg 110 - 119 kg 1750 mg > 120 kg 2000 mg Initial regimen not to exceed 4000 mg/day Vancomycin Interval: CrCl (mL/min) Dosing Interval > 60 Every 12 hours 30 - 59 Every 24 hours 20 - 29 Every 48 hours < 20 Intermittent dosing Hemodialysis Intermittent dosing Peritoneal Dialysis Intermittent dosing CVVHD Every 24 hours Every 8 hour dosing may be considered for patients with CrCl > 90 mL/min Consider periodic trough levels (every 4-7 days) in patients receiving longer courses of therapy (greater than 5 days) to ensure adequate but not excessive concentrations: target between 10-20 mcg/mL Obtaining a SCr at least once weekly is recommended (more often with concomitant nephrotoxins). More frequent monitoring may be warranted. Hemodialysis patients should have serum drug concentrations measured every 3-7 days to determine time of next dose. Daily random drug levels are not warranted. Doses may be adjusted based on laboratory results and the pharmacokinetic and pharmacodynamic principles of the medication and the patient to attain target concentrations. *Consider initiating treatment in intermittent and every 48-hour patients with doses on Day 1 and Day 2. Patients on ECMO: Dose based on renal function. Donna Delgadillo, PharmD, [facility] Clinical Pharmacist documented in this encounter H&P Notes * Sondra Pacheco MD - 10/04/2021 7:35 PM CDT History & Physical Date of service: 10/04/21 Primary care provider: Jean-Claude Salazar MD Chief Complaint: AMS HPI: 71 y.o. year old male with a pmhx of A-fib on no anticoagulation due to prior SAH, CHF, HTN, legally blind, A&Ox1 at baseline who presented to the ED after being found unresponsive in his wheelchair while at home. In the ED here, he presented here with vitals notable for systolic in the 50s. Started on sepsis protocol, given 30 cc/kg fluids. BP improved and admitted to the floors. Pt unable to provide me any hx . Spoke to daughter, states pt has been declining ever since his in june. Currently living in the [facility]. Tried to call pt significant other who is POA but no answer. Currently full code. It appears pt is not fully covid vaccinated. Only received one dose. Past Medical History: Diagnosis Date ??? Acute [...] THROUGH EXISTING CATHETER N/A 02/04/2020 ??? VASECTOMY (Not in a hospital admission) Allergies Allergen Reactions ??? Penicillins Hives Social History Tobacco Use ??? Smoking status: Current Every Day Smoker Packs/day: 1.00 Types: Cigarettes Start date: 1965 ??? Smokeless tobacco: Never Used Substance and Sexual Activity ??? Drug use: Yes Types: Alcohol Comment: Reportedly 3 shots of Tequila/day ??? Sexual activity: Defer Alcohol Use: Heavy Drinker ??? Frequency of Alcohol Consumption: 4 or more times a week ??? Average Number of Drinks: 3 or 4 ??? Frequency of Binge Drinking: Less than monthly Family History Problem Relation Age of Onset ??? Hypertension Mother ??? Lung cancer Father ??? Cancer Father ??? Anesthesia problems Neg Hx Review of Systems Unable to perform ROS: Mental status change Objective: Vitals: 10/04/21 1715 10/04/21 1725 10/04/21 1900 10/04/21 1930 BP: 124/90 117/74 121/89 128/90 Pulse: 77 81 98 87 Resp: 18 16 17 18 Temp: 36.6 ??C (97.9 ??F) TempSrc: Oral SpO2: 97% 99% 97% 96% Weight: 24hr Min/Max: Temp Min: 35.8 ??C (96.4 ??F) Max: 36.6 ??C (97.9 ??F) Pulse Min: 62 Max: 98 BP Min: 70/56 Max: 144/105 Resp Min: 12 Max: 25 SpO2 Min: 92 % Max: 100 % I/O last 2 completed shifts: In: - Out: 350 [Urine:350] No intake/output data recorded. Physical Exam Vitals and nursing note reviewed. Constitutional: Appearance: Normal appearance. He is ill-appearing. Comments: sayda hugger in place HENT: Head: Normocephalic and atraumatic. Nose: Nose normal. No congestion. Mouth/Throat: Mouth: Mucous membranes are moist. Pharynx: Oropharynx is clear. Eyes: Extraocular Movements: Extraocular movements intact. Pupils: Pupils are equal, round, and reactive to light. Cardiovascular: Rate and Rhythm: Normal rate and regular rhythm. Pulses: Normal pulses. Heart sounds: Normal heart sounds. No murmur heard. Pulmonary: Effort: Pulmonary effort is normal. Breath sounds: Normal breath sounds. Abdominal: General: Bowel sounds are normal. Palpations: Abdomen is soft. Tenderness: There is no abdominal tenderness. Musculoskeletal: General: Normal range of motion. Cervical back: Normal range of motion and neck supple. Right lower leg: No edema. Left lower leg: No edema. Skin: General: Skin is warm and dry. Capillary Refill: Capillary refill takes less than 2 seconds. Neurological: General: No focal deficit present. Mental Status: He is alert. Comments: A&Ox1 which is baseline Hard of hearing Following all commands Psychiatric: Mood and Affect: Mood normal. Lab/Radiology/Diagnostic Review: Labs personally reviewed: Imaging reports reviewed: XR Chest Pa Lateral 2 Views Final Result 1. No sign of pneumonia detected. 2. Mild cardiomegaly without signs of acute CHF or pulmonary edema. 3. No sign of a pleural effusion or pneumothorax. 4. Atherosclerotic change of aorta. Electronically signed by: Vicente eVrma M.D. CT Head WO Contrast Final Result Interval resolution of small volume intraventricular hemorrhage. No new acute intracranial hemorrhage. No large acute territory infarct. Electronically signed by: Lotus Michael M.D. CXR independently reviewed: NAD Review of old records: reviewed ED encounter at [facility] on 09/19 , seen for dementia Assessment/Plan Severe sepsis due to COVID 19 COVID 19 infection Thrombocytopenia likely due to sepsis - improved with IVF. No other source of infection identified. Likely all related to covid infection. - will continue abx for now, until blood cx return given how unstable pt was when he first arrive .Low threshold to d/c. - will start remdesvir. 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 At this time, pt is full code but would benefit from GOC discussions/palliativecare consult Code status: Full Code ESTIMATED LENGTH OF STAY: Greater than 2 midnights Sondra Pacheco MD 10/04/2021 7:35 PM documented in this encounter Consult Notes * Miguel Flores MD - 10/08/2021 9:17 AM CDT Ortho Hip Knee Consult Reason for Consult: Right intertrochanteric femur fracture Requesting Provider: Hospitalist Subjective Patient is a 71 y.o. male with chief complaint of unwitnessed fall while being hospitalized for mental status changes. He has active COVID for which he is on isolation. The patient is alert to persononly and therefore much of the history is obtained from the chart and the patient's . She tellsme that he had sustained a fall back in June and which he has had a steady neurocognitive decline since then. He underwent fracture repair of his left hip back in June at [facility]. At baseline he is alert to person only and is a wheelchair ambulator. He has been residing at the [facility]. He injured his right hip when he slid out of his wheelchair yesterday afternoon and an x-ray was obtained which revealed a comminuted intertrochanteric femur fracture. Ortho was consulted for fracture repair. Past Medical History: Diagnosis Date ??? Acute cholecystitis ??? Alcohol use ??? Anxiety ??? Atrial fibrillation (CMS/HCC) (HCC) ??? Blind legally blind ??? BPH (benign prostatic hyperplasia) ??? BPH (benign prostatic hyperplasia) ??? CHF (congestive heart failure) (CMS/HCC) (HCC) ??? CHF (congestive heart failure) (CMS/HCC) ([facility]) ??? Cholecystitis ??? Chronic anemia ??? COPD [...] THROUGH EXISTING CATHETER N/A 02/04/2020 ??? VASECTOMY Medications Prior to Admission Medication Sig Dispense Refill Last Dose ??? acetaminophen (TYLENOL) 325 mg tablet Take 2 tablets (650 mg total) by mouth every 4 (four) hours as needed for pain 30 tablet 0 ??? albuterol 2.5 mg /3 mL (0.083 %) nebulizer solution Take 2.5 mg by nebulization every 6 (six) hours as needed for wheezing ??? aspirin 81 mg enteric coated tablet Take 81 mg by mouth daily ??? cholecalciferol (VITAMIN D-3) 5,000 unit tablet Take 5,000 Units by mouth every morning ??? fluticasone furoate-vilanteroL (BREO ELLIPTA) 100-25 mcg/dose diskus inhaler Inhale 1 puff oncedaily Rinse mouth with water after use. Do not swallow. ??? folic acid (FOLVITE) 1 mg tablet Take 1 mg by mouth daily ??? metoprolol (LOPRESSOR) 100 mg tablet Take 1 tablet (100 mg total) by mouth 2 (two) times a day 180 tablet 3 ??? multivit,tx with iron,minerals (THERA-M ORAL) Take 1 tablet by mouth every morning ??? pantoprazole DR (PROTONIX) 40 mg EC tablet Take 40 mg by mouth daily ??? pravastatin (PRAVACHOL) 40 mg tablet Take 40 mg by mouth daily ??? ramelteon (ROZEREM) 8 mg tablet Take 1 tablet (8 mg total) by mouth nightly 30 tablet 11 ??? senna (SENOKOT) 8.6 mg tablet Take 1 tablet by mouth 2 (two) times a day ??? terazosin (HYTRIN) 10 mg capsule Take 10 mg by mouth nightly ??? thiamine (VITAMIN B1) 100 mg tablet Take 100 mg by mouth every morning Allergies Allergen Reactions ??? Penicillins Hives Social History Tobacco Use ??? Smoking status: Current Every Day Smoker Packs/day: 1.00 Types: Cigarettes Start date: 1965 ??? Smokeless tobacco: Never Used Substance Use Topics ??? Alcohol use: Yes Comment: limited Family History Problem Relation Age of Onset ??? Hypertension Mother ??? Lung cancer Father ??? Cancer Father ??? Anesthesia problems Neg Hx Review of Systems: Review of systems per HPI and otherwise all systems are negative Objective Vitals: 24hr Min/Max: Temp Min: 36.6 ??C (97.8 ??F) Max: 36.8 ??C (98.2 ??F) Pulse Min: 81 Max: 95 BP Min: 123/71 Max: 157/105 Resp Min: 18 Max: 18 SpO2 Min: 94 % Max: 98 % Most Recent: Vitals: 10/08/21 0152 BP: 142/92 Pulse: 81 Resp: 18 Temp: 36.6 ??C (97.9 ??F) SpO2: 98% No intake/output data recorded. No intake/output data recorded. External Urinary Catheter (Active) Wound 06/27/21 MASD (Moisture associated skin damage) Perineum , buttocks (Active) Surgical Site 07/04/21 Left Leg (Active) Physical Exam: General appearance: cooperative and no distress Lungs: Nonlabored Heart: regular rate and rhythm Abdomen: Soft nondistended Extremities:Painful passive range of motion of his right hip with tenderness to palpation in the peritrochanteric region. he wiggles his toes Skin: Skin color, texture, turgor normal. No rashes or lesions Neurologic: Mental status: Alert to person only Lab/Radiology/Diagnostic Review: Imaging review: I have independently examined the X-ray and CT image(s). My findings are Right intertrochanteric femur fracture Assessment /Plan Principal Problem: Sepsis due to COVID-19 (CMS/HCC) ([facility]) Active Problems: Chronic systolic heart failure (CMS/HCC) (HCC) TBI (traumatic brain injury) (CMS/HCC) ([facility]) Orthostatic hypotension COPD (chronic obstructive pulmonary disease) (CMS/HCC) ([facility]) Benign prostatic hyperplasia with lower urinary tract symptoms I discussed risks and benefits of fracture repair with the patient's . He had a similar injury to his left hip that was treated with a nail and he recovered well from. I explained that this is a similar fracture pattern and treatment. They wished to proceed with intramedullary nail the right hip. He is NPO and she consents. * Miguel Flores MD - 10/07/2021 2:00 PM CDTAssociated Order(s): IP CONSULT TO ORTHOPEDIC SURGERY Consult received, xrays reviewed. Has greater trochanter fracture, not certain if this extends intoIT region, obtaining CT to further evaluate the fracture pattern. NPO after midnight for possible surgery in the am * Andreas Wheeler MD - 10/07/2021 11:30 AM CDTAssociated Order(s): IP CONSULT TO CARDIOLOGY Images from the original note were not included. [facility] Cardiology [address], [address] [place], [place], [address] [facility] [address] [place] [id number] Cardiology Electrophysiology MD Bill Still,, MD Logan Swann MD Robert Kopitsky, MD Mikey Lozada, MD Kerwin Joyce, MD Adrianna Brunson, GARIMA Wilkes, MD Pedro Luis Ramos MD Jeremy Tietjens, MD K. Bryan Trimmer, DO Bradley Witbrodt, MD Elizabeth Niederschulte, GARIMA Montano, GARIMA Palacios, GARIMA Cardiology Consultation Note Patient Name: Jania Redman Date of : 1950 Primary Physician: Jean-Claude Salazar MD Requesting Physician: @REQUEST@ Admission Date: 10/04/2021 Length of Stay: 3 Chief Complaint Altered Mental Status HPI Jania Redman is a 71 y.o. male seen in consultation for cardiac clearance due to need for orthopedic surgery for acute right femur fracture. Patient is a 71-year-old male with chronic dementia, mild systolic heart failure, hypertension, decreased vision, legally blind, recent fall with sub arachnoid hemorrhage in June of this year, history of paroxysmal atrial fibrillation now off anticoagulation due to fall and subarachnoid hemorrhage Currently lives in the [facility] and was found unresponsive in his wheelchair 3 days ago on 10/04/20. Upon arrival to the ER he, was bradycardic and profoundly hypotensive which responded well to fluids He met sirs criteria due to low blood pressure, low white count, Tested positive for COVID-19 and sepsis is presumably due to viral etiology. Early this morning patient had another unwitnessed fall here in the hospital and was found to have right femur fracture. Orthopedic surgery has been consulted and is requesting cardiac preoperative evaluation given his history of atrial fibrillation and systolic dysfunction. Past Medical History Past Medical History: Diagnosis Date ??? Acute [...] attack) ??? Vitamin D deficiency Past Surgical History Past Surgical History: Procedure Laterality Date ??? ABSCESS CATHETER INJECTION N/A 12/25/2019 ??? ABSCESS CATHETER INJECTION N/A 01/04/2020 ??? ABSCESS CATHETER INJECTION N/A 01/15/2020 ??? CATARACT EXTRACTION, BILATERAL ??? CHOLECYSTECTOMY ??? CIRCUMCISION ??? FLUID DRAIN SOFT TISSUE N/A 12/19/2019 ??? IR CHOLANGIOGRAM THROUGH EXISTING CATHETER N/A 02/04/2020 ??? VASECTOMY Medications Medications Prior to Admission Medication Sig Dispense Refill Last Dose ??? acetaminophen (TYLENOL) 325 mg tablet Take 2 tablets (650 mg total) by mouth every 4 (four) hours as needed for pain 30 tablet 0 ??? albuterol 2.5 mg /3 mL (0.083 %) nebulizer solution Take 2.5 mg by nebulization every 6 (six) hours as needed for wheezing ??? aspirin 81 mg enteric coated tablet Take 81 mg by mouth daily ??? cholecalciferol (VITAMIN D-3) 5,000 unit tablet Take 5,000 Units by mouth every morning ??? fluticasone furoate-vilanteroL (BREO ELLIPTA) 100-25 mcg/dose diskus inhaler Inhale 1 puff oncedaily Rinse mouth with water after use. Do not swallow. ??? folic acid (FOLVITE) 1 mg tablet Take 1 mg by mouth daily ??? metoprolol (LOPRESSOR) 100 mg tablet Take 1 tablet (100 mg total) by mouth 2 (two) times a day 180 tablet 3 ??? multivit,tx with iron,minerals (THERA-M ORAL) Take 1 tablet by mouth every morning ??? pantoprazole DR (PROTONIX) 40 mg EC tablet Take 40 mg by mouth daily ??? pravastatin (PRAVACHOL) 40 mg tablet Take 40 mg by mouth daily ??? ramelteon (ROZEREM) 8 mg tablet Take 1 tablet (8 mg total) by mouth nightly 30 tablet 11 ??? senna (SENOKOT) 8.6 mg tablet Take 1 tablet by mouth 2 (two) times a day ??? terazosin (HYTRIN) 10 mg capsule Take 10 mg by mouth nightly ??? thiamine (VITAMIN B1) 100 mg tablet Take 100 mg by mouth every morning Allergies Allergies Allergen Reactions ??? Penicillins Hives Family History Family History Problem Relation Age of Onset ??? Hypertension Mother ??? Lung cancer Father ??? Cancer Father ??? Anesthesia problems Neg Hx Social History Social History Tobacco Use ??? Smoking status: Current Every Day Smoker Packs/day: 1.00 Types: Cigarettes Start date: 1965 ??? Smokeless tobacco: Never Used Substance and Sexual Activity ??? Drug use: Yes Types: Alcohol Comment: Reportedly 3 shots of Tequila/day ??? Sexual activity: Defer Alcohol Use: Heavy Drinker ??? Frequency of Alcohol Consumption: 4 or more times a week ??? Average Number of Drinks: 3 or 4 ??? Frequency of Binge Drinking: Less than monthly ROS Review of Systems Reason unable to perform ROS: Limited due to altered mental status and dementia. Cardiovascular: Positive for chest pain. Respiratory: Positive for shortness of breath. Musculoskeletal: Endorses hip /leg pain Objective BP 161/88 (BP Location: Left arm, Patient Position: Reclining) Pulse 97 Temp 36.7 ??C (98 ??F) (Oral) Resp 18 Ht 180.3 cm (5' 11 ) Wt 80.6 kg (177 lb 11.1 oz) SpO2 99% BMI 24.78 kg/m?? Vitals: 10/06/21 2050 10/07/21 0421 10/07/21 0726 10/07/21 0815 BP: (!) 154/106 161/99 161/88 BP Location: Left arm Left arm Left arm Patient Position: Lying Reclining Pulse: 107 91 97 Resp: 18 Temp: 36.7 ??C (98 ??F) TempSrc: Oral SpO2: 99% 98% 99% 99% Weight: Height: No intake or output data in the 24 hours ending 10/07/21 1130 General: Well appearing, No pain or distress, well nourished Head and Neck: N/A Eyes: N/A ENT: N/A Respiratory: Clear to ausculation bilaterally; no wheezing/rales/rhonchi; respirations nonlabored Cardiovascular: RRR, normal S1 and S2. No S3 or S4. No murmurs or rubs. No visible JVD. Gastrointestinal: N/A Extremities: Warm and perfused extremities, no edema Musculoskeletal: Ambulates under own power, no assistive devices Skin: N/A Psychiatric: Appropriate mood and affect. Calm and cooperative. Neurologic: awake/alert, no focal deficits Diagnostics Recent Results (from the past 24 hour(s)) Basic metabolic panel Collection Time: 10/07/21 6:30 AM Result Value Ref Range Sodium 137 135 - 145 mmol/L Potassium, pl 2.9 (L) 3.3 - 4.9 mmol/L Chloride 103 97 - 110 mmol/L CO2 26 22 - 32 mmol/L Anion gap 8 2 - 15 mmol/L BUN 8 8 - 25 mg/dL Creatinine 0.67 (L) 0.80 - 1.30 mg/dL Glucose 77 70 - 199 mg/dL Calcium 8.1 (L) 8.5 - 10.3 mg/dL CBC with auto differential Collection Time: 10/07/21 6:30 AM Result Value Ref Range WBC 3.9 3.8 - 9.9 K/cumm Hgb 11.6 (L) 13.0 - 17.5 g/dL Hct 35.0 (L) 38.9 - 50.3 % Plt 134 (L) 150 - 400 K/cumm MPV 10.6 9.1 - 12.3 fL RBC 3.72 (L) 4.30 - 5.80 M/cumm MCV 94.1 81.3 - 96.4 fL MCH 31.2 27.1 - 33.3 pg MCHC 33.1 32.3 - 35.7 g/dL RDW CV 13.3 11.1 - 14.9 % RDW SD 45.8 35.7 - 48.1 fL NRBC abs 0.00 0.00 - 0.01 K/cumm Differential, auto Collection Time: 10/07/21 6:30 AM Result Value Ref Range Neutrophil abs 1.8 1.7 - 6.5 K/cumm Imm gran abs 0.0 0.0 - 0.1 K/cumm Lymphocyte abs 1.7 0.8 - 3.3 K/cumm Monocyte abs 0.3 0.2 - 0.8 K/cumm Eosinophil abs 0.0 0.0 - 0.5 K/cumm Basophil abs 0.0 0.0 - 0.1 K/cumm Neutrophil pct 46.1 % Imm gran pct 0.3 % Lymphocyte pct 43.6 % Monocyte pct 8.7 % Eosinophil pct 1.0 % Basophil pct 0.3 % eGFR Collection Time: 10/07/21 6:30 AM Result Value Ref Range eGFR 100 mL/min/1.73 m2 Magnesium Collection Time: 10/07/21 6:30 AM Result Value Ref Range Magnesium 1.7 1.4 - 2.5 mg/dL Magnesium - Add on lab test Collection Time: 10/07/21 7:45 AM Result Value Ref Range Acceptable Yes CT Head WO Contrast Result Date: 10/07/[address] finding of acute traumatic brain injury or acute intracranial hemorrhage. No additional significant interval change since the last exam. Electronically signed by: MIREYA BARAJAS XR Hips Bilateral 2 Views W Pelvis Result Date: 10/07/2021 Acute right intertrochanteric femur fracture as above. Electronically signed by: Clarence Prdao M.D. Results for orders placed or performed during the hospital encounter of 06/11/21 ECG 12 lead Result Value Ref Range Ventricular Rate EKG/Min 78 BPM Atrial Rate 110 BPM QRS-Interval (MSEC) 76 ms QT-Interval (MSEC) 424 ms QTc 483 ms R [place] 14 degrees T [place] -38 degrees Diagnosis Atrial fibrillation Nonspecific ST and T wave abnormality Prolonged QT Abnormal ECG When compared with ECG of 12-JUN-2021 12:13, Vent. rate has decreased BY 70 BPM Nonspecific T wave abnormality, worse in Anterolateral leads Confirmed by VENKAT KANG M.D ([id number]) on 06/14/2021 2:54:24 PM Results for orders placed during the hospital encounter of 08/30/20 Transthoracic Echo Complete W Doppler/CF Narrative [facility] [address] [place] [id number] ECHOCARDIOGRAM Patient Name: JANIA REDMAN : 1950 Study Date: 08/30/2020 10:52:11 AM Gender: M Tech: [facility] Ref.Provider: CHRISTOPHER NOVAK Height(Cm): 180 BSA: 2.09 Weight(Kg): 87.1BP: 134/70 Order Provider: CHRISTOPHER NOVAK Procedures: Echocardiographic Report: Transthoracic Echocardiogram with complete 2D, M-Mode, Spectral and Color Flow Doppler examination. Indications: Atrial fibrillation. Measurements: 2D/M Mode Doppler Measurement Value Normal Range Measurement Value Normal Range IVSd 2D 1.31 [ 0.60 - 0.90 ] cm AV Peak Teddy 1.3 [ 1.0 - 1.7 ] m/s LVIDd 2D 5.40 [ 4.20 - 5.90 ] cm AV Peak PG 7 [ 2 - 9 ] mmHg LVIDs 2D 3.72 [ 2.30 - 3.90 ] cm AV Mean PG 3 [ 2 - 4 ] mmHg LVPWd 2D 1.29 [ 0.60 - 1.00 ] cm AV VTI 21.9 cm LA Dimen 2D 4.30 cm GEOVANNY VTI 1.9 [ 2.0 - 4.0 ] cm2 AR Diam 2D 4.20 cm LVOT Peak Teddy 0.81 [ 0.70 - 1.10 ] m/s LA Volume Index 47.00 [ 16.00 - 28.00 ] ml/m2 LVOT Diam 2.1 [ 1.7 - 2.1 ] cm TAPSE 1.30 [ 1.60 - 3.00 ] cm LVOT Peak PG 3 [ 2 - 6 ] mmHg LVOT VTI 11.8 [ 20.0 - 30.0 ] cm MV E Peak Teddy 1.1 [ 0.6 - 1.3 ] m/s MV A Peak Teddy 0.0 [ 1.0 - 1.2 ] m/s MV Decel Time 194.4 [ 104.0 - 258.0 ] ms MV E/A Ratio RA Pressure 3.0 mmHg PV Peak Teddy 0.9 [ 0.4 - 0.8 ] m/s PV Peak PG 3 mmHg Lat E` Teddy 0.07 [ 0.10 - 0.15 ] m/s Sept E' Teddy 0.07 [ 0.08 - 0.15 ] m/s E/E` 15.71 RV S' 0.11 m/s - Findings: Study Quality: The study was technically adequate. BP: Blood pressure: 134/70 mmHg. Left Ventricle: Mild left ventricular systolic dysfunction. Ejection Fraction is estimated at 45-50 %. Normal left ventricular cavity size. Mild concentric left ventricular hypertrophy. Right Ventricle: Mild right ventricular dysfunction. Right ventricular chamber size upper limits of normal. Left Atrium: There is moderate enlargement of the left atrium. Right Atrium: The right atrium is normal in size. Atrial Septum: Normal appearing atrial septum. Mitral Valve: Normal appearance of the mitral valve leaflets. Mild mitral valve regurgitation. Aortic Valve: Normal aortic valve appearance and function. Tricuspid Valve: Normal tricuspid valve appearance and function. TR envelope inadequate to estimate RVSP. Pulmonic Valve: Grossly normal appearing pulmonic valve. Pericardium: Normal appearing pericardial thickness. No significant pericardial effusion. Aortic Root and Aorta: Normal caliber aortic root. Aortic Arch: Grossly normal aortic arch. IVC: Normal appearance of the inferior vena cava. Conclusions: 1. Mild left ventricular systolic dysfunction. Ejection Fraction is estimated at 45-50 %. Normal left ventricular cavity size. Mild concentric left ventricular hypertrophy. 2. Mild right ventricular dysfunction. Right ventricular chamber size upper limits of normal. Electronically Signed By: Christopher Novak MD, [facility] 2020-08-30 12:21:56 CDT CC: CC: Problem List 1. Cardiac preoperative evaluation. - cardiac risk factors including atrial fibrillation - mild systolic dysfunction - no known history of coronary artery disease, normal MPI stress test August 2020 - Geriatric RCRI perioperative risk is low at 1.5%. - active COVID-19 infection with recent severe hypotension may increase risk somewhat. - I do not think any ischemic evaluation would be helpful - ideally repeat limited structural evaluation given history of CHF an active COVID-19 B warranted thus I placed an order for a transthoracic echocardiogram - based on current exam and history otherwise would not delay urgent surgery as otherwise patient appears fairly well medically optimized 2. Paroxysmal atrial fibrillation - not on anticoagulation given recent fall - well rate controlled with metoprolol 100 mg b.i.d. 3. Mild systolic dysfunction EF 45-50%, mild RV dysfunction - though reportedly improved 70 75% with normal RV function on echocardiogram at [place] June 2021 4. Hypotension, likely COVID sepsis 5. COVID-19 sepsis 6. Dementia 7. Recent falls, subarachnoid hemorrhage June 2021 Care plan discussed with the patient. Andreas Wheeler MD 10/07/2021 11:30 AM This note was dictated in part using Wire voice recognition software. Despite careful review of this note, variances in spelling and vocabulary are possible and unintentional. documented in this encounter ED Notes * Marcelino Qureshi EMT-P - 10/05/2021 10:41 AM CDT Personal belongings conversation was held with patient and/or family. Understanding verbalized. Marcelino Qureshi EMT-P 10/05/21 1041 * Gian Jackson MD - 10/04/2021 1:05 PM CDT HPI Chief Complaint Patient presents with ??? Altered Mental Status HPI This is a 71-year-old male with PMH subarachnoid hemorrhage, AFib no longer on anticoagulation, orthostatic hypotension, prior encephalopathy/delirium, BPH, prior left femur fracture s/p ORIF, anemia, dementia (A&O x1 at baseline per pt's ) who presents from his nursing facility after beingfound unresponsive in his wheelchair. Per pt's , she was informed that his pulse was in the 40s at the time and his O2 sats were in the 80s on RA. Patient arrives here awake, but preferentially keeping his eyes closed. He opens eyes to voice, follows commands, answer some questions. He is oriented to self only. His only complaint is right leg pain. His vitals are stable and he is on RA. Pt's says he has no known seizure history. She says that since his SAH (from a fall) in June,he has had progressive cognitive decline and his mental status often waxes and wanes. Patient History: Patient Active Problem List Diagnosis Date Noted ??? Sepsis due to COVID-19 ([facility]) ([facility]) 10/04/2021 ??? Falls, subsequent encounter 09/25/2021 ??? Borderline hyperglycemia 08/23/2021 ??? Dementia ([facility]) 07/21/2021 ??? COPD (chronic obstructive pulmonary disease) (CMS/HCC) ([facility]) 07/13/2021 ??? Benign prostatic hyperplasia with lower urinary tract symptoms 07/13/2021 ??? Acute on chronic anemia 07/05/2021 ??? Thrombocytopenia (CMS/HCC) ([facility]) 07/05/2021 ??? TBI (traumatic brain injury) ([facility]/HCC) ([facility]) 06/29/2021 ??? SAH (subarachnoid hemorrhage) ([facility]/HCC) ([facility]) 06/29/2021 ??? Encephalopathy 06/29/2021 ??? Acute delirium 06/29/2021 ??? Scrotal abscess 06/29/2021 ??? Closed nondisplaced intertrochanteric fracture of left femur ([facility]/HCC) ([facility]) 06/29/2021 ??? Dysphagia 06/29/2021 ??? Orthostatic hypotension 06/29/2021 ??? Acute respiratory failure (HCC) 06/29/2021 ??? Atrial fibrillation (CMS/HCC) (HCC) 06/15/2020 ??? Chronic systolic heart failure (CMS/HCC) (HCC) 06/15/2020 ??? Cholecystitis 06/14/2020 ??? DVT (deep venous thrombosis) (CMS/HCC) (HCC) 02/20/2020 ??? Intra-abdominal abscess (CMS/HCC) (HCC) 12/28/2019 ??? Hypercholesterolemia 04/26/2010 ??? Hypertension 04/26/2010 ??? Heartburn 04/26/2010 Past Medical History: Diagnosis Date ??? Acute [...] THROUGH EXISTING CATHETER N/A 02/04/2020 ??? VASECTOMY Family History Problem Relation Age of Onset ??? Hypertension Mother ??? Lung cancer Father ??? Cancer Father ??? Anesthesia problems Neg Hx Social History Tobacco Use ??? Smoking status: Current Every Day Smoker Packs/day: 1.00 Types: Cigarettes Start date: 1965 ??? Smokeless tobacco: Never Used Vaping Use ??? Vaping Use: Never used Substance Use Topics ??? Alcohol use: Yes Comment: limited ??? Drug use: Yes Types: Alcohol Comment: Reportedly 3 shots of Tequila/day Social History Social History Narrative Cigarette smoker : (Added by TW Therese) Review of Systems Review of Systems Constitutional: Negative for fever. HENT: Negative for ear pain and sore throat. Eyes: Negative for pain. Respiratory: Positive for cough. Cardiovascular: Negative for chest pain. Gastrointestinal: Negative for abdominal pain and vomiting. Genitourinary: Negative for dysuria. Musculoskeletal: Negative for arthralgias and back pain. + R leg pain Skin: Negative for color change and rash. Neurological: Negative for headaches. Psychiatric/Behavioral: Positive for confusion. All other systems reviewed and are negative. Physical Exam ED Triage Vitals Temp Pulse Resp BP SpO2 10/04/21 1345 10/04/21 1302 10/04/21 1302 10/04/21 1302 10/04/21 1302 (!) 35.8 ??C (96.4 ??F) 76 16 109/86 99 % Temp src Heart Rate Source Patient Position BP Location FiO2 (%) 10/04/21 1302 -- -- 10/05/21 1100 -- Oral Left arm Height Height Method Weight Weight Method 10/05/21 1100 10/04/21 1302 10/04/21 1302 10/04/21 1302 1.803 m (5' 11 ) Stated 80.7 kg (178 lb) EMS stretcher scale Physical Exam Vitals and nursing note reviewed. Constitutional: General: He is not in acute distress. Appearance: He is well-developed and normal weight. He is ill-appearing. He is not toxic-appearing. HENT: Head: Normocephalic and atraumatic. Right Ear: External ear normal. Left Ear: External ear normal. Nose: Nose normal. Mouth/Throat: Mouth: Mucous membranes are moist. Pharynx: Oropharynx is clear. No posterior oropharyngeal erythema. Eyes: General: No scleral icterus. Extraocular Movements: Extraocular movements intact. Conjunctiva/sclera: Conjunctivae normal. Pupils: Pupils are equal, round, and reactive to light. Cardiovascular: Rate and Rhythm: Normal rate. Rhythm irregular. Heart sounds: Normal heart sounds. No murmur heard. No friction rub. No gallop. Pulmonary: Effort: Pulmonary effort is normal. Breath sounds: Normal breath sounds. No wheezing, rhonchi or rales. Chest: Chest wall: No tenderness. Abdominal: General: Bowel sounds are normal. There is no distension. Palpations: Abdomen is soft. Tenderness: There is no abdominal tenderness. There is no guarding or rebound. Musculoskeletal: General: No tenderness (No tenderness anywhere in the RLE or LLE. Old ORIF scars on L thigh/hip. Full ROM of both legs). Normal range of motion. Cervical back: Normal range of motion and neck supple. No tenderness. Right lower leg: No edema. Left lower leg: No edema. Skin: General: Skin is warm and dry. Capillary Refill: Capillary refill takes less than 2 seconds. Findings: Bruising (multiple bruises on BLE, old-appearing) and lesion (small wounds on R knee. +Stage 1 sacral decub wound) present. Neurological: Cranial Nerves: No cranial nerve deficit. Sensory: No sensory deficit. Motor: No weakness (5/5 throughout). Comments: Oriented to self only Psychiatric: Comments: Eyes closed but opens to voice MDM Medical Decision Making Differential Diagnosis or Management Options: This is a 71-year-old male with PMH subarachnoid hemorrhage, AFib no longer on anticoagulation, orthostatic hypotension, prior encephalopathy/delirium, BPH, prior left femur fracture s/p ORIF, anemia, dementia (A&O x1 at baseline per pt's ) who presents from his nursing facility after being found unresponsive in his wheelchair. He is currentlyawake and stable. DDx includes ACS, arrhythmia, seizure, infection, metabolic derangement, stroke/ICH, hypoactive delirium. Plan: CBC, CMP, UA/UCx, troponins, ECG, Mg/Phos, CT head, viral swab Dispo: pending workup Attending Summary of Care I saw this patient with Dr. Ramirez. He is a 71-year-old man with multiple chronic medical problems including status post traumatic brain injury, subarachnoid hemorrhage, hypertension, hyperlipidemia, atrial fibrillation, COPD, dementia with progressive cognitive decline, who presented after being found lethargic while sitting in a chair, with heart rate in the 40s and oxygen saturation of 80%. No new medications that we are aware of. No recent fever, chills. He is unable provide a detailed history given his cognitive impairment. He was seen by Dr. Ramirez, and just prior to my seeing him, we were alerted by his nurse that his blood pressure was in the 50s systolic. He was noted to have a temperature of 96??. He is lethargic but arouses to voice. Currently oriented x2 (person and hospital). Skin reveals scattered abrasions and ecchymoses. Head is atraumatic. Eyes EOMI, normal conjunctiva. Neck nontender, no mass or stridor.Lungs normal respiratory effort, coarse breath sounds on the right. Heart is irregular, no murmur, no peripheral edema. Abdomen is soft, nontender, no organomegaly, mass, or obvious hernia. Extremities no cyanosis, negative Homans sign. Neurologic exam alert, oriented x2, diffusely weak. Thinking is slow. I personally reviewed his EKG, and reveals atrial fibrillation at 69 beats per minute, no ischemic changes. I personally reviewed his chest x-ray, and I think he has infiltrate in his right lower lung field, best appreciated on the lateral film. Head CT did not reveal any acute process, and showed improvement from his previous scan. Labs of significance include white count 2.6, platelet count 122, albumin 3.2. Sepsis lactate pending. Blood cultures x2 were obtained and a sepsis focused exam wasperformed. He has SIRS criteria with white count 2.6, and respiratory rate 25. He had at least 3 consecutive blood pressures that were less than 90 systolic, and a 30 milliliter/kilogram sepsis boluswas initiated. Broad-spectrum sepsis appropriate IV antibiotics have been initiated as well. Disposition will depend on his BP response to fluids. I am told that he is a full code. Addendum: Blood pressure is responding to fluids. VBG reveals pH 7.29 with mild hypercapnia. Anticipate admission to hospitalist service. I have seen and examined the patient on 10/04/2021. I agree with the findings and plan of care as documented in the resident's note. ED Course as of 10/05/21 1200 Time: 10/04 1411 Comment: Called to pt's room because he had become hypotensive to 70s/50s. He was also newly hypothermic. He was still awake and responsive. Due to c/f septic shock, pt was immediately started on a 30 cc/kg NS bolus, BCx were obtained, and BS Abx initiated. Pt will be admitted By: Alysha Ramirez MD Time: 10/04 1442 Value: WBC(!): 2.6 Comment: (Reviewed) By: Alysha Ramirez MD Time: 10/04 1450 Comment: Pt's BP now 123/86, responding well to fluids By: Alysha Ramirez MD Time: 10/04 1710 Comment: Accepted by hospitalist By: Alysha Ramirez MD Septic shock ([facility]) ([facility]) Disorientation Hypothermia, initial encounter Hypotension, unspecified hypotension type Pneumonia of right lower lobe due to infectious organism Alysha Ramirez MD Resident 10/04/212111 Gian Jackson MD 10/05/21 1201 * Lakia Youngblood RN - 10/04/2021 1:03 PM CDT Patient presents with complaints of being unresponsive in his wheelchair from the [facility]. documented in this encounter Miscellaneous Notes * Plan of Care - Brittany Bradley RN - 11/01/2021 11:57 PM CDT Problem: Health Behavior: Goal: Understanding of discharge needs will improve Outcome: Progressing Problem: Activity: Goal: Mobility will improve Outcome: Progressing Problem: Lack of Knowledge: Goal: [...] improve to fullest extent possible Outcome: Progressing Problem: Lack of Knowledge: Goal: Ability to state ways to decrease the risk of falls will improve Outcome: Progressing Problem: Safety: Goal: Will remain free from falls Outcome: Progressing Goal: Will remain free from injury from falls Outcome: Progressing Goal: Will remain free from falls and injury in home environment Outcome: Progressing Problem: Respiratory: Goal: Ability to maintain a clear airway will improve Outcome: Progressing Goal: Complications related to the disease process, condition or treatment will be avoided or minimized Outcome: Progressing Problem: Medication: Goal: Satisfaction with pain management regimen will improve Outcome: Progressing Problem: Sensory: Goal: Ability to identify factors that increase the pain will improve Outcome: Progressing Goal: Pain level will decrease Outcome: Progressing Goals: Clinical Goals for the Shift: VSS, remain free from falls, rest, safety,comfort Summary: VSS, on RA, all meds given, pt transported to facility around 2100, assessment completed, paperwork completed. * Plan of Care - Wellington Delgado MSW - 11/01/2021 2:11 PM CDT Disposition: patient is confused. ADELIA/Raine Redman ([phone]) is aware and verified d/c plan is [facility] [place] Facility admissions/Floxy verified the following information: Facility: [facility] Room: 616 Call report to: [phone] Fax d/c orders to: [phone] Accepting physician: Dr. Pop ([phone]) Transportation: [facility]. ETA: 11/01/21, 1700. Trip number: [id number]. * Plan of Care - Jemma Shaw RN - 11/01/2021 12:49 PM CDT Received a call back from Lucretia at [employer]. Provided verbal report of therapy notes.SNF authorized for [facility]. Auth number [id number], DOS 11/01-11/14, with NRD 11/13. Lucretia dumont reached at , . Provided information to Jared at [facility] . * Plan of Care - Jemma Shaw RN - 11/01/2021 11:16 AM CDT Contacted Patient's insurance, , to inquiry about authorization status for SNF. Customer Service could not locate the request and transferred me to the and DC planning line, . Left a message and awaiting return call. * Plan of Care - Brittany Bradley RN - 11/01/2021 5:02 AM CDT Problem: Health Behavior: Goal: Understanding of discharge needs will improve Outcome: Progressing Problem: Activity: Goal: Mobility will improve Outcome: Progressing Problem: Lack of Knowledge: Goal: [...] improve to fullest extent possible Outcome: Progressing Problem: Lack of Knowledge: Goal: Ability to state ways to decrease the risk of falls will improve Outcome: Progressing Problem: Safety: Goal: Will remain free from falls Outcome: Progressing Goal: Will remain free from injury from falls Outcome: Progressing Goal: Will remain free from falls and injury in home environment Outcome: Progressing Problem: Respiratory: Goal: Ability to maintain a clear airway will improve Outcome: Progressing Goal: Complications related to the disease process, condition or treatment will be avoided or minimized Outcome: Progressing Problem: Medication: Goal: Satisfaction with pain management regimen will improve Outcome: Progressing Problem: Sensory: Goal: Ability to identify factors that increase the pain will improve Outcome: Progressing Goal: Pain level will decrease Outcome: Progressing Goals: Clinical Goals for the Shift: VSS, remain free from falls,rest, safety, comfort Summary: VSS, on RA, A&O to self, no complaints of pain, no falls this shift, pt resting comfortably in bed, will continue to monitor and update as needed. * Plan of Marilyn - Aby Joseph - 10/31/2021 5:30 PM CDT Problem: Activity: Goal: Mobility will improve Outcome: Progressing Problem: Nutritional: Goal: Dietary intake will improve Outcome: Progressing Goal: Ability to maintain a balanced intake and output will improve Outcome: Progressing Problem: Skin Integrity: Goal: Risk for impaired skin integrity will decrease Outcome: Progressing Goal: Ability to demonstrate warm and dry skin will improve Outcome: Progressing Goal: Circulation will improve to fullest extent possible Outcome: Progressing Problem: Safety: Goal: Will remain free from falls Outcome: Progressing Goal: Will remain free from injury from falls Outcome: Progressing Goal: Will remain free from falls and injury in home environment Outcome: Progressing Problem: Respiratory: Goal: Ability to maintain a clear airway will improve Outcome: Progressing Goal: Complications related to the disease process, condition or treatment will be avoided or minimized Outcome: Progressing Problem: Medication: Goal: Satisfaction with pain management regimen will improve Outcome: Progressing Problem: Sensory: Goal: Ability to identify factors that increase the pain will improve Outcome: Progressing Goal: Pain level will decrease Outcome: Progressing Summary: VSS, denies any pain, good appetite, resting in bed now but was up in the chair for several hours, A&Ox1 and very confused, will continue to monitor Cosigned by Paradise Mccormick, GAURAV at 10/31/2021 6:46 PM CDT * Plan of Care - Wellington Delgado MSW - 10/31/2021 4:35 PM CDT Per KAL QUINTERO, spoke with [facility] admissions/[facility] and she stated insurance auth isstill pending. AMARJIT spoke with patient's DPOA/Raine Redman ([phone]) to discuss d/c plan. She stated she may be able to afford private pay LTC for a few months, if needed. * Plan of Care - Brittany Bradley RN - 10/31/2021 3:44 AM CDT Problem: Health Behavior: Goal: Understanding of discharge needs will improve Outcome: Progressing Problem: Activity: Goal: Mobility will improve Outcome: Progressing Problem: Lack of Knowledge: Goal: [...] improve to fullest extent possible Outcome: Progressing Problem: Lack of Knowledge: Goal: Ability to state ways to decrease the risk of falls will improve Outcome: Progressing Problem: Safety: Goal: Will remain free from falls Outcome: Progressing Goal: Will remain free from injury from falls Outcome: Progressing Goal: Will remain free from falls and injury in home environment Outcome: Progressing Problem: Respiratory: Goal: Ability to maintain a clear airway will improve Outcome: Progressing Goal: Complications related to the disease process, condition or treatment will be avoided or minimized Outcome: Progressing Problem: Medication: Goal: Satisfaction with pain management regimen will improve Outcome: Progressing Problem: Sensory: Goal: Ability to identify factors that increase the pain will improve Outcome: Progressing Goal: Pain level will decrease Outcome: Progressing Goals: Clinical Goals for the Shift: VSS, pain management, rest,comfort, remain stella from falls Summary: VSS, on RA, A&O to self, no complaints of pain, no falls this shift, pt resting comfortably in bed, will continue to monitor and update as needed. * Plan of Care - Paradise Mccormick RN - 10/30/2021 7:00 PM CDT Problem: Health Behavior: Goal: Understanding of discharge needs will improve Outcome: Progressing Problem: Activity: Goal: Mobility will improve Outcome: Progressing Problem: Lack of Knowledge: Goal: [...] improve to fullest extent possible Outcome: Progressing Problem: Lack of Knowledge: Goal: Ability to state ways to decrease the risk of falls will improve Outcome: Progressing Problem: Safety: Goal: Will remain free from falls Outcome: Progressing Goal: Will remain free from injury from falls Outcome: Progressing Goal: Will remain free from falls and injury in home environment Outcome: Progressing Problem: Respiratory: Goal: Ability to maintain a clear airway will improve Outcome: Progressing Goal: Complications related to the disease process, condition or treatment will be avoided or minimized Outcome: Progressing Problem: Medication: Goal: Satisfaction with pain management regimen will improve Outcome: Progressing Problem: Sensory: Goal: Ability to identify factors that increase the pain will improve Outcome: Progressing Goal: Pain level will decrease Outcome: Progressing Goals: Clinical Goals for the Shift: monito VS, pain control, reposition, therapy Summary: Patient resting in chair most of afternoon, tolerating PO intake well, worked with therapy, no complaints of pain, remains on room air, VSS, will continue to monitor * Plan of Care - Wellington Delgado MSW - 10/30/2021 4:16 PM CDT Per [facility] admissions/[facility], insurance auth is still pending. SW left for patient's DPOA/Raine Redman ([phone]) to discuss d/c plan, requested she return call. * Plan of Care - Mirna Tuttle RN - 10/30/2021 3:00 AM CDT Problem: Health Behavior: Goal: Understanding of discharge needs will improve Outcome: Progressing Problem: Activity: Goal: Mobility will improve Outcome: Progressing Problem: Lack of Knowledge: Goal: Understanding of ways to prevent future skin breakdown will improve Outcome: Progressing Goal: Ability to identify appropriate dietary choices will improve Outcome: Progressing Problem: Nutritional: Goal: Dietary intake will improve Outcome: Progressing Goal: Ability to maintain a balanced intake and output will improve Outcome: Progressing Goals: Clinical Goals for the Shift: VSS, rest, remain free from injury Summary: vss, patient rested comfortably overnight, no complaints of pain overnight. Cooperative with care and pleasant. * Plan of Care - Yolanda Sanchez RN - 10/29/2021 6:10 PM CDT Problem: Health Behavior: Goal: Understanding of discharge needs will improve Outcome: Progressing Problem: Activity: Goal: Mobility will improve Outcome: Progressing Problem: Lack of Knowledge: Goal: [...] improve to fullest extent possible Outcome: Progressing Problem: Lack of Knowledge: Goal: Ability to state ways to decrease the risk of falls will improve Outcome: Progressing Problem: Safety: Goal: Will remain free from falls Outcome: Progressing Goal: Will remain free from injury from falls Outcome: Progressing Goal: Will remain free from falls and injury in home environment Outcome: Progressing Problem: Respiratory: Goal: Ability to maintain a clear airway will improve Outcome: Progressing Goal: Complications related to the disease process, condition or treatment will be avoided or minimized Outcome: Progressing Problem: Medication: Goal: Satisfaction with pain management regimen will improve Outcome: Progressing Problem: Sensory: Goal: Ability to identify factors that increase the pain will improve Outcome: Progressing Goal: Pain level will decrease Outcome: Progressing Goals: Clinical Goals for the Shift: Monitor VS. Monitor labs. PT/OT. Free from falls. Comfort & safety. Summary: Pt VSS. Pt calm and cooperative throughout the day. Pt has good appetite. Denies pain. R hip site is healed. Will continue to monitor pt. * Plan of Care - Mirna Tuttle RN - 10/29/2021 3:01 AM CDT Problem: Health Behavior: Goal: Understanding of discharge needs will improve Outcome: Progressing Problem: Activity: Goal: Mobility will improve Outcome: Progressing Problem: Lack of Knowledge: Goal: [...] improve to fullest extent possible Outcome: Progressing Problem: Lack of Knowledge: Goal: Ability to state ways to decrease the risk of falls will improve Outcome: Progressing Problem: Safety: Goal: Will remain free from falls Outcome: Progressing Goal: Will remain free from injury from falls Outcome: Progressing Goal: Will remain free from falls and injury in home environment Outcome: Progressing Goals: Clinical Goals for the Shift: VSS, rest, remain free from injury Summary: VSS. Pt slept at intervals overnight. No complaints of pain. Cooperative with care for themost part. Incontinent of urine. Awaiting insurance authorization for SNF. Bed alarm in place. * Plan of Care - Yolanda Sanchez RN - 10/28/2021 3:12 PM CDT Problem: Health Behavior: Goal: Understanding of discharge needs will improve Outcome: Progressing Problem: Activity: Goal: Mobility will improve Outcome: Progressing Problem: Lack of Knowledge: Goal: [...] improve to fullest extent possible Outcome: Progressing Problem: Lack of Knowledge: Goal: Ability to state ways to decrease the risk of falls will improve Outcome: Progressing Problem: Safety: Goal: Will remain free from falls Outcome: Progressing Goal: Will remain free from injury from falls Outcome: Progressing Goal: Will remain free from falls and injury in home environment Outcome: Progressing Problem: Respiratory: Goal: Ability to maintain a clear airway will improve Outcome: Progressing Goal: Complications related to the disease process, condition or treatment will be avoided or minimized Outcome: Progressing Problem: Medication: Goal: Satisfaction with pain management regimen will improve Outcome: Progressing Problem: Sensory: Goal: Ability to identify factors that increase the pain will improve Outcome: Progressing Goal: Pain level will decrease Outcome: Progressing Goals: Clinical Goals for the Shift: Monitor VS. Monitor labs. PT/OT. Free from falls. Comfort & safety. Summary: Pt VSS. Pt surgical site to R hip is clean, dry, intact, [employer]. Pt denies pain. Urinating appropriately, mostly incontinent. Has good appetite. Pt has been calm and cooperative all day. Will continue to monitor pt, * Plan of Care - Wellington Delgado MSW - 10/28/2021 1:41 PM CDT Weekend note: SW left message for [facility] admissions/[facility] to determine status of insurance auth. Addendum: per admissions/Floxy, insurance auth is still pending. * Plan of Care - Torri Kim RN - 10/28/2021 3:30 AM CDT Problem: Health Behavior: Goal: Understanding of discharge needs will improve Outcome: Progressing Problem: Activity: Goal: Mobility will improve Outcome: Progressing Problem: Lack of Knowledge: Goal: Understanding of ways to prevent future skin breakdown will improve Outcome: Progressing Goal: Ability to identify appropriate dietary choices will improve Outcome: Progressing Problem: Nutritional: Goal: Dietary intake will improve Outcome: Progressing Goal: Ability to maintain a balanced intake and output will improve Outcome: Progressing Problem: Nutritional: Goal: Dietary intake will improve Outcome: Progressing Goal: Ability to maintain a balanced intake and output will improve Outcome: Progressing Problem: Skin Integrity: Goal: Risk for impaired skin integrity will decrease Outcome: Progressing Goal: Ability to demonstrate warm and dry skin will improve Outcome: Progressing Goal: Circulation will improve to fullest extent possible Outcome: Progressing Problem: Lack of Knowledge: Goal: Ability to state ways to decrease the risk of falls will improve Outcome: Progressing Problem: Safety: Goal: Will remain free from falls Outcome: Progressing Goal: Will remain free from injury from falls Outcome: Progressing Goal: Will remain free from falls and injury in home environment Outcome: Progressing Problem: Respiratory: Goal: Ability to maintain a clear airway will improve Outcome: Progressing Goal: Complications related to the disease process, condition or treatment will be avoided or minimized Outcome: Progressing Problem: Medication: Goal: Satisfaction with pain management regimen will improve Outcome: Progressing Problem: Sensory: Goal: Ability to identify factors that increase the pain will improve Outcome: Progressing Goal: Pain level will decrease Outcome: Progressing Goals: Clinical Goals for the Shift: monitor VS,labs, safdety, rest, comfort Summary: A&OX1, resting in bed comfortably, up with 1 assist and walker.GB to bathroom, BP 170's/90's, afebrile, denies pain, free from falls, bed alarm in place * Plan of Care - Aby Hsieh RN - 10/27/2021 3:39 PM CDT Goals: Clinical Goals for the Shift: vss, monitor labs, rest and comfort Summary: Pt vss, A&O1, on RA. No complaints of pain this shift. Worked with therapy this shift.Pt resting comfortably in bed for most of shift. Bath completed this shift. Free from falls this shift, call light within reach. Will update as needed. Problem: Health Behavior: Goal: Understanding of discharge needs will improve Outcome: Progressing Problem: Activity: Goal: Mobility will improve Outcome: Progressing Problem: Lack of Knowledge: Goal: [...] improve to fullest extent possible Outcome: Progressing Problem: Lack of Knowledge: Goal: Ability to state ways to decrease the risk of falls will improve Outcome: Progressing Problem: Safety: Goal: Will remain free from falls Outcome: Progressing Goal: Will remain free from injury from falls Outcome: Progressing Goal: Will remain free from falls and injury in home environment Outcome: Progressing Problem: Respiratory: Goal: Ability to maintain a clear airway will improve Outcome: Progressing Goal: Complications related to the disease process, condition or treatment will be avoided or minimized Outcome: Progressing Problem: Medication: Goal: Satisfaction with pain management regimen will improve Outcome: Progressing Problem: Sensory: Goal: Ability to identify factors that increase the pain will improve Outcome: Progressing Goal: Pain level will decrease Outcome: Progressing * Plan of Care - Wellington Delgado MSW - 10/27/2021 11:44 AM CDT SW left message for [facility] admissions/[facility] (at 0927 and [id number]). She stated sheis on the phone currently with patient's insurance company, verified she will return call [facility]. Addendum 1231: Neftaly Linda, was hung up on by insurance company, planning to call again at a later time, will update SW when auth is obtained. Addendum 1652: at this time, insurance auth is still pending. * Plan of Care - Ximena Matta RN - 10/27/2021 2:24 AM CDT Problem: Activity: Goal: Mobility will improve Outcome: Progressing Problem: Lack of Knowledge: Goal: Understanding of ways to prevent future skin breakdown will improve Outcome: Progressing Goal: Ability to identify appropriate dietary choices will improve Outcome: Progressing Problem: Skin Integrity: Goal: Risk for impaired skin integrity will decrease Outcome: Progressing Problem: Safety: Goal: Will remain free from falls Outcome: Progressing Goal: Will remain free from injury from falls Outcome: Progressing Goals: Clinical Goals for the Shift: VSS, allow time to rest, remain free of falls, pain management, frequent rounding Summary: VS remained stable through the night; rested through the night; AOx1 (person); no complaints of pain; frequent rounding implemented for patient's safety; stable on room air; has no current needs at this time, will update as needed * Plan of Care - Miley Acosta RN - 10/26/2021 3:23 PM CDT Problem: Health Behavior: Goal: Understanding of discharge needs will improve Outcome: Progressing Problem: Activity: Goal: Mobility will improve Outcome: Progressing Problem: Lack of Knowledge: Goal: [...] improve to fullest extent possible Outcome: Progressing Problem: Lack of Knowledge: Goal: Ability to state ways to decrease the risk of falls will improve Outcome: Progressing Problem: Safety: Goal: Will remain free from falls Outcome: Progressing Goal: Will remain free from injury from falls Outcome: Progressing Goal: Will remain free from falls and injury in home environment Outcome: Progressing Problem: Respiratory: Goal: Ability to maintain a clear airway will improve Outcome: Progressing Goal: Complications related to the disease process, condition or treatment will be avoided or minimized Outcome: Progressing Problem: Medication: Goal: Satisfaction with pain management regimen will improve Outcome: Progressing Problem: Sensory: Goal: Ability to identify factors that increase the pain will improve Outcome: Progressing Goal: Pain level will decrease Outcome: Progressing Goals: Clinical Goals for the Shift: VSS, safety, comfort Summary: Patient is alert and oriented to self. No complaints of pain. Worked with PT/OT. Up to chair with gb and walker. Pt eating 100% of meals. Bed/chair alarm on for safety at all times. Will d/c virtal sitter * Plan of Care - Wellington Delgado MSW - 10/26/2021 9:23 AM CDT AMARJIT left message for [facility] admissions/[facility] ([phone]) to determine if insurance has approved SNF. Addendum: SW received return call from facility admissions/[facility]. She is going to speak with the new liaison to verify insurance auth status and will update SW. * Plan of Care - Jenn Spain RN - 10/26/2021 3:35 AM CDT Goals: Clinical Goals for the Shift: RN monitor vitals, safetym rest and comfort Summary: Patient A&O x1 and is on RA. Patient denies any pain. BP slightly elevated, BP medication given. Continuous virtual sitter remains on bedside. Patient remains free of fall. Patient is resting comfortably in bed. Call light and table within reach. Problem: Health Behavior: Goal: Understanding of discharge needs will improve Outcome: Progressing Problem: Activity: Goal: Mobility will improve Outcome: Progressing Problem: Lack of Knowledge: Goal: [...] improve to fullest extent possible Outcome: Progressing Problem: Lack of Knowledge: Goal: Ability to state ways to decrease the risk of falls will improve Outcome: Progressing Problem: Safety: Goal: Will remain free from falls Outcome: Progressing Goal: Will remain free from injury from falls Outcome: Progressing Goal: Will remain free from falls and injury in home environment Outcome: Progressing Problem: Respiratory: Goal: Ability to maintain a clear airway will improve Outcome: Progressing Goal: Complications related to the disease process, condition or treatment will be avoided or minimized Outcome: Progressing Problem: Medication: Goal: Satisfaction with pain management regimen will improve Outcome: Progressing Problem: Sensory: Goal: Ability to identify factors that increase the pain will improve Outcome: Progressing Goal: Pain level will decrease Outcome: Progressing * Plan of Care - Aby Hsieh RN - 10/25/2021 2:23 PM CDT Goals: Clinical Goals for the Shift: vss, monitor labs, rest and comfort Summary: Pt vss, A&O1, on RA. No complaints of pain this shift. Worked with therapy this shift.Pt resting comfortably in bed for most of shift. Bath completed this shift. Pt agitated this AM, becoming more pleasant this afternoon. Free from falls this shift, call light within reach. Will update as needed. Problem: Health Behavior: Goal: Understanding of discharge needs will improve Outcome: Progressing Problem: Activity: Goal: Mobility will improve Outcome: Progressing Problem: Lack of Knowledge: Goal: [...] improve to fullest extent possible Outcome: Progressing Problem: Lack of Knowledge: Goal: Ability to state ways to decrease the risk of falls will improve Outcome: Progressing Problem: Safety: Goal: Will remain free from falls Outcome: Progressing Goal: Will remain free from injury from falls Outcome: Progressing Goal: Will remain free from falls and injury in home environment Outcome: Progressing Problem: Respiratory: Goal: Ability to maintain a clear airway will improve Outcome: Progressing Goal: Complications related to the disease process, condition or treatment will be avoided or minimized Outcome: Progressing Problem: Medication: Goal: Satisfaction with pain management regimen will improve Outcome: Progressing Problem: Sensory: Goal: Ability to identify factors that increase the pain will improve Outcome: Progressing Goal: Pain level will decrease Outcome: Progressing * Plan of Care - Wellington Delgado MSW - 10/25/2021 9:54 AM CDT SW left message for [facility] admissions/[facility] ([phone]) to determine if insurance has approved SNF. * Plan of Care - Barney Schmitt RN - 10/25/2021 4:02 AM CDT Problem: Health Behavior: Goal: Understanding of discharge needs will improve Outcome: Progressing Problem: Activity: Goal: Mobility will improve Outcome: Progressing Problem: Lack of Knowledge: Goal: [...] improve to fullest extent possible Outcome: Progressing Problem: Lack of Knowledge: Goal: Ability to state ways to decrease the risk of falls will improve Outcome: Progressing Problem: Safety: Goal: Will remain free from falls Outcome: Progressing Goal: Will remain free from injury from falls Outcome: Progressing Goal: Will remain free from falls and injury in home environment Outcome: Progressing Problem: Respiratory: Goal: Ability to maintain a clear airway will improve Outcome: Progressing Goal: Complications related to the disease process, condition or treatment will be avoided or minimized Outcome: Progressing Problem: Medication: Goal: Satisfaction with pain management regimen will improve Outcome: Progressing Problem: Sensory: Goal: Ability to identify factors that increase the pain will improve Outcome: Progressing Goal: Pain level will decrease Outcome: Progressing Goals: Clinical Goals for the Shift: VSS, comfort and safety, rest, free from respiratory and cardiac distress Summary: Patient is A&O x1, only oriented to self. On RA, IV cath in place on saline lock and flushing well. Due meds given. BP was elevated but asymptomatic, made known to hospitalist Sondra Pacheco and no new orders. BP monitored well. Continuous virtual sitter is active in the bedside. Able to sleep comfortably. No complains made. At 0610H patient aggressively refused for rechecking of vital signs. Monitored well. * Plan of Care - Aby Hsieh RN - 10/24/2021 2:50 PM CDT Goals: Clinical Goals for the Shift: vss, labs, rest and comfort Summary: Pt vss, A&O1-2, on RA. No complaints of pain this shift. Worked with therapy this shift. Pt resting comfortably in bed for most of shift. Virtual sitter is active in the room, pt tolerating well. Pt sleeping most of day. Free from falls this shift, call light within reach. Will update as needed. * Plan of Care - Kendra Johnson MSW - 10/24/2021 9:52 AM CDT [facility] unable to accept pt. Do not have a contract. Spoke with pt's sig. Other who is agreeable to [facility]. Notified [facility] to start auth. Sig. Other concerned aboutsepsis. Requesting To contact her. Left a message with Dr. Cunningham * Plan of Care - Barney Schmitt RN - 10/24/2021 3:46 AM CDT Problem: Health Behavior: Goal: Understanding of discharge needs will improve Outcome: Progressing Problem: Activity: Goal: Mobility will improve Outcome: Progressing Problem: Lack of Knowledge: Goal: [...] improve to fullest extent possible Outcome: Progressing Problem: Lack of Knowledge: Goal: Ability to state ways to decrease the risk of falls will improve Outcome: Progressing Problem: Safety: Goal: Will remain free from falls Outcome: Progressing Goal: Will remain free from injury from falls Outcome: Progressing Goal: Will remain free from falls and injury in home environment Outcome: Progressing Problem: Respiratory: Goal: Ability to maintain a clear airway will improve Outcome: Progressing Goal: Complications related to the disease process, condition or treatment will be avoided or minimized Outcome: Progressing Problem: Medication: Goal: Satisfaction with pain management regimen will improve Outcome: Progressing Problem: Sensory: Goal: Ability to identify factors that increase the pain will improve Outcome: Progressing Goal: Pain level will decrease Outcome: Progressing Goals: Clinical Goals for the Shift: VSS, comfort and safety, rest, free from respiratory and cardiac distress Summary: Patient is A&O x1 on RA with IV cath in place on saline lock and flushing well. Due meds given. With virtual sitter monitoring all the time. No complains made. Able to sleep comfortably.Monitored well. * Plan of Care - Jw Cartwright RN - 10/23/2021 3:32 PM CDT Problem: Health Behavior: Goal: Understanding of discharge needs will improve Outcome: Progressing Problem: Activity: Goal: Mobility will improve Outcome: Progressing Problem: Lack of Knowledge: Goal: Ability to identify appropriate dietary choices [...] improve to fullest extent possible Outcome: Progressing Problem: Lack of Knowledge: Goal: Ability to state ways to decrease the risk of falls will improve Outcome: Progressing Problem: Safety: Goal: Will remain free from falls Outcome: Progressing Goal: Will remain free from injury from falls Outcome: Progressing Goal: Will remain free from falls and injury in home environment Outcome: Progressing Problem: Respiratory: Goal: Ability to maintain a clear airway will improve Outcome: Progressing Goal: Complications related to the disease process, condition or treatment will be avoided or minimized Outcome: Progressing Problem: Medication: Goal: Satisfaction with pain management regimen will improve Outcome: Progressing Problem: Sensory: Goal: Ability to identify factors that increase the pain will improve Outcome: Progressing Goal: Pain level will decrease Outcome: Progressing Goals: Clinical Goals for the Shift: VSS, remain free of falls, virtual sitter, pain management, allow time to rest, blood glucose Summary: vss with elevated BP, A&O x1, up x1-2/gb/walker, RA, adequate appetite, no falls. Pt rested in bed today with no c/o pain. Got bathed and linens changed. Alice to be removed this afternoon. Pt can be continent or incontinent depending on the time of day. Still awaiting placement. Will update as needed. * Plan of Care - Wellington Delgado MSW - 10/23/2021 12:18 PM CDT Per [facility] admissions/[place], insurance auth is still pending at this time, will update SW when obtained. notified Dr. Cunningham. Addendum: Per facility admissions/[facility], facility is not in contract with patient's insurance, in the process of speaking with administration for possible one time contract. * Plan of Care - Ximena Matta RN - 10/23/2021 2:21 AM CDT Problem: Activity: Goal: Mobility will improve Outcome: Progressing Problem: Nutritional: Goal: Dietary intake will improve Outcome: Progressing Goals: Clinical Goals for the Shift: VSS, remain free of falls, virtual sitter, pain management, allow time to rest, blood glucose Summary: VS remained stable through the night; no falls upon ambulation; no complaints of pain; blood glucose levels are stable; slept through the night; virtual sitter remains in place; AOx1; stableon room air; has no current needs at this time, will update as needed * Plan of Care - Jw Cartwright RN - 10/22/2021 2:59 PM CDT Problem: Nutritional: Goal: Dietary intake will improve Outcome: Progressing Goal: Ability to maintain a balanced intake and output will improve Outcome: Progressing Problem: Skin Integrity: Goal: Risk for impaired skin integrity will decrease Outcome: Progressing Goal: Ability to demonstrate warm and dry skin will improve Outcome: Progressing Goal: Circulation will improve to fullest extent possible Outcome: Progressing Problem: Safety: Goal: Will remain free from falls Outcome: Progressing Goal: Will remain free from injury from falls Outcome: Progressing Goal: Will remain free from falls and injury in home environment Outcome: Progressing Problem: Respiratory: Goal: Ability to maintain a clear airway will improve Outcome: Progressing Goal: Complications related to the disease process, condition or treatment will be avoided or minimized Outcome: Progressing Problem: Medication: Goal: Satisfaction with pain management regimen will improve Outcome: Progressing Problem: Sensory: Goal: Ability to identify factors that increase the pain will improve Outcome: Progressing Goal: Pain level will decrease Outcome: Progressing Problem: Health Behavior: Goal: Understanding of discharge needs will improve Outcome: Not Progressing Problem: Activity: Goal: Mobility will improve Outcome: Not Progressing Problem: Lack of Knowledge: Goal: Understanding of ways to prevent future skin breakdown will improve Outcome: Not Progressing Goal: Ability to identify appropriate dietary choices will improve Outcome: Not Progressing Problem: Lack of Knowledge: Goal: Ability to state ways to decrease the risk of falls will improve Outcome: Not Progressing Goals: Clinical Goals for the Shift: vss, reorient to surroundings, safety, NO FALLS, virtual sitter Summary: vss, a&o x1, RA, no falls, virtual sitter, adequate appetite. Pt rested in bed today with no c/o pain. He has not had his condom cath since he removed 3 yesterday. Pt can be impulsive and tries to go to the bathroom . Forgets his urinal is at BS. Pt was bathed/linen changed/skin care performed. Awaiting placement. Will update as needed. * Plan of Care - Ximena Matta RN - 10/22/2021 3:09 AM CDT Problem: Activity: Goal: Mobility will improve Outcome: Progressing Goals: Clinical Goals for the Shift: VSS, remain free of falls, allow time to rest, virtual sitter, reorient to surroundings Summary: VS except BP remained stable; hospitalist notified, no new orders; no falls upon ambulation; virtual sitter in place; stable on room air; AOx1, forgetful; frequent rounding; frequent reorientation to his surroundings; complaints with night medications; has no current needs at this time, will update as needed * Plan of Care - Jw Cartwright RN - 10/21/2021 6:08 PM CDT Problem: Activity: Goal: Mobility will improve Outcome: Progressing Problem: Nutritional: Goal: Dietary intake will improve Outcome: Progressing Goal: Ability to maintain a balanced intake and output will improve Outcome: Progressing Problem: Skin Integrity: Goal: Risk for impaired skin integrity will decrease Outcome: Progressing Goal: Ability to demonstrate warm and dry skin will improve Outcome: Progressing Problem: Safety: Goal: Will remain free from falls Outcome: Progressing Goal: Will remain free from injury from falls Outcome: Progressing Goal: Will remain free from falls and injury in home environment Outcome: Progressing Problem: Respiratory: Goal: Ability to maintain a clear airway will improve Outcome: Progressing Goal: Complications related to the disease process, condition or treatment will be avoided or minimized Outcome: Progressing Problem: Medication: Goal: Satisfaction with pain management regimen will improve Outcome: Progressing Problem: Sensory: Goal: Pain level will decrease Outcome: Progressing Problem: Health Behavior: Goal: Understanding of discharge needs will improve Outcome: Not Progressing Problem: Lack of Knowledge: Goal: Understanding of ways to prevent future skin breakdown will improve Outcome: Not Progressing Goal: Ability to identify appropriate dietary choices will improve Outcome: Not Progressing Problem: Skin Integrity: Goal: Circulation will improve to fullest extent possible Outcome: Not Progressing Problem: Lack of Knowledge: Goal: Ability to state ways to decrease the risk of falls will improve Outcome: Not Progressing Problem: Sensory: Goal: Ability to identify factors that increase the pain will improve Outcome: Not Progressing Goals: Clinical Goals for the Shift: vss, safety, rest/comfort, sitter, reorient to surroundings Summary: vss, a&o x1, up x1/gb/waker though he attempts to get up on his own frequently- bed alarm on, virtual sitter present. RA, no falls, adequate appetite. Pt rested in bed/chair today with no c/o pain. He was bathed/skin care performed and linens changed twice due to 2 large BMs this afternoon. Pt has a congested cough, but non-productive, I reached out to the hospitalist to see if neb treatments may be helpful for comfort/ease of breathing, but have not yet heard back. Pt in low bed with floor mats. Will update as needed. * Plan of Care - Dina Romero RN - 10/21/2021 3:25 AM CDT Goals: Clinical Goals for the Shift: vss, rest, comfort, safety, sitter Summary: Patient A&Ox1, on room air. Patient has virtual sitter overnight. Patient has been calm and cooperative throughout this shift. Patient on low bed with mats and turned as allowed overnight. Problem: Health Behavior: Goal: Understanding of discharge needs will improve Outcome: Progressing Problem: Activity: Goal: Mobility will improve Outcome: Progressing Problem: Lack of Knowledge: Goal: [...] to fullest extent possible Outcome: Progressing * Plan of Care - Taylor Pruett RN - 10/20/2021 5:09 PM CDT Problem: Health Behavior: Goal: Understanding of discharge needs will improve Outcome: Progressing Problem: Activity: Goal: Mobility will improve Outcome: Progressing Problem: Lack of Knowledge: Goal: [...] improve to fullest extent possible Outcome: Progressing Problem: Lack of Knowledge: Goal: Ability to state ways to decrease the risk of falls will improve Outcome: Progressing Problem: Safety: Goal: Will remain free from falls Outcome: Progressing Goal: Will remain free from injury from falls Outcome: Progressing Goal: Will remain free from falls and injury in home environment Outcome: Progressing Problem: Respiratory: Goal: Ability to maintain a clear airway will improve Outcome: Progressing Goal: Complications related to the disease process, condition or treatment will be avoided or minimized Outcome: Progressing Problem: Medication: Goal: Satisfaction with pain management regimen will improve Outcome: Progressing Problem: Sensory: Goal: Ability to identify factors that increase the pain will improve Outcome: Progressing Goal: Pain level will decrease Outcome: Progressing Goals: Clinical Goals for the Shift: VPO in place, q2h turn, safety, free from falls, VSS,reorient/redirect, rest Summary: Patient has remained calm and in chair. Denies pain or other problems. Very [place] and hard to get patient to undestand. Remain with virtual sitter. VSS * Plan of Care - Wellington Delgado MSW - 10/20/2021 2:34 PM CDT SW sent updated therapy notes to [facility]. Facility admissions/[facility] is aware and will start insurance auth. * [facility] Note - Wellington Delgado MSW - 10/20/2021 2:34 PM CDT Images from the original note were not included. Patient Information: OT Eval and Treat Last 72 Hours OT Evaluation Row Name 10/16/21 0955 OT Received On 10/16/21 -CS Subjective Comment Pt declines, stating that he is too comfortable and warm. Does not request therapist to return. Will continue to follow. -CS OT Missed Visit Reason Patient declined -CS User Perdomo (r) = Recorded By, (t) = Taken By, (c) = Cosigned By Initials Name Effective Dates CS Zoey Alfred, OT 08/17/21 - OT Treatment Row Name 10/20/21 1352 Session Type Treatment -TV OT Received On 10/20/21 -TV Safe Environment Arm Band Checked;Chair Alarm placed and activated;Call Light within Reach;Patient found sitting in Chair -TV Subjective Agreeable to Therapy with encouragement -TV Subjective Comment I just want to sleep. Pt wihout complaint at this time. -TV Family/Caregiver Present No -TV Precautions Bed/Chair Alarm;Fall risk -TV Weight Bearing Restrictions No -TV Pain Assessment No/denies pain -TV Pain Score 0 - No pain -TV Patient's Stated Pain Goal No pain -TV Grooming: Where assessed Chair -TV Grooming: Level of assistance Standby Assist -TV Grooming: Assistance with Wash/dry face pt declines teeth brushing -TV LE Dressing: Where assessed Sitting;Chair -TV LE Dressing: Level of assistance Maximum Assist -TV LE Dressing: Assistance with Don/doff R sock;Don/doff L sock;Increased time to complete;Verbal cueing -TV Bed Mobility No -TV Bed Mobility Comments 1 Pt is already up in chair upon arrival. -TV Transfer Yes -TV Transfer From 1 Chair with arms -TV Transfer Type 1 To and from -TV Transfer to 1 Stand -TV Technique 1 Sit to stand;Stand to sit -TV Transfer Device 1 Wheeled walker -TV Transfer Level of Assistance 1 Minimum Assist;Moderate Assist -TV Trials/Comments 1 cues for hand placement t/o the transfer especially upon sitting from standing position he keeps B-hands on ww upon descent. -TV ROM/STRENGTH -- attempted to encourage patient in performing BUE AROM ex, but he only performs 1 rep of elbow flex prior to declining to continue and state he wants to rest. -TV Gross Motor WFL -TV Fine Motor WFL -TV OT Therapeutic -- Pt stood from chair and ambulated forward 4-5 steps with encouragement to go to the sink to brush teeth. He stops mid-way and steps backwards towards the recliner and sits. He has difficulty determining if he wants to sit or return to bed. Sits in chair. -TV Cognition Comments [place], limited vision-oftentimes needs question repeated. -TV Overall Cognitive Status Impaired -TV Arousal/Alertness Lethargic;Delayed responses to stimuli -TV Attention Span Distractability;Attends with cues to redirect -TV Memory Decreased short term memory -TV Current communication Appears Intact dysarthric -TV Orientation Oriented to person -TV Following Commands Follows one step commands with repetition -TV Safety Judgment Decreased awareness of need for safety -TV Awareness of Errors Assistance required to identify errors made;Assistance required to correct errors made;Decreased awareness of errors -TV Insight Not aware of deficits -TV Problem Solving Assistance required to identify errors made;Assistance required to generate solutions;Assistance required to implement solutions -TV Compliance/Behavior Easy to engage;Reluctant to participate -TV Perseveration Not present -TV Endurance Tolerates 10 - 20 min activity with multiple rests -TV Activity Tolerance Comments Pt is having difficulty keeping his eyes open t/o session. He has difficulty making up mind about remaining in recliner or returning to bed. He is ultimately positioned inrecliner with BLEs elevated. Alarm is reactivated and call light w/in reach. -TV Comments Pt is fairly pleasant this pm, but he is lethargic and hesitant to participate claiming fatigue. -TV Plan Continue with current plan;If this is the last note, consider this the discharge summary -TV OT Recommendation Intermediate Facility -TV Patient at high risk for Falls;Readmission;Injury due to impaired cognition;Injury due to reduced functional status;Injury due to decreased ability to care for self -TV Recommend SNF due to Risk of injury at home;Skilled therapy needed to address functional deficits -TV OT Frequency 3-5x/wk -TV Progress Progressing toward goals -TV User Perdomo (r) = Recorded By, (t) = Taken By, (c) = Cosigned By Initials Name Effective Dates TV Iqra Aquino, OT 12/29/18 - OT Notes Notes from 10/18/21 through 10/20/21 No notes of this type exist for this encounter. , PT Eval and Treat Last 72 Hours PT Evaluation No documentation. PT TREATMENT (last 168 hours) PT Treatment Row Name 10/20/21 1140 10/16/21 1456 PT Last Visit Session Type Treatment -SS Treatment -LG Safe Environment Patient found in Supine;Arm Band Checked;Chair Alarm placed and activated;Call Light within Reach;Notified RN;Overbed Table within Reach -SS Arm Band Checked;Bed Alarm placed and activated;Call Light within Reach;Notified RN;Patient found in Supine;Overbed Table within Reach -LG Subjective Agreeable to Therapy -SS Agreeable to Therapy -LG Subjective Comment -- Pt confused but indicates he is agreeable to participating in physical therapy. -LG Family/Caregiver Present No -SS No -LG Precautions Precautions Bed/Chair Alarm;Fall risk -SS Bed/Chair Alarm;Fall risk -LG Weight Bearing Restrictions -- Yes -LG RLE Weight Bearing -- WBAT -LG Precaution Comments -- Pt has sitter d/t confusion. -LG Activity Tolerance Activity Tolerance Comments Vitals stable on room air, seated rest breaks as requested by pt when fatigued; Pt has difficulty giving feedback to therapist due to dementia -SS Post activity vitals: 98% on RA, HR 86. -LG Pain Assessment Pain Assessment No/denies pain -SS 0-10 -LG Pain Score 0 - No pain -SS 0 - No pain -LG Clinical Progression Not changed -SS Not changed -LG Cognition Cognition Comments [place], limited vision -SS Pt is [place] -LG Overall Cognitive Status Impaired -SS Impaired -LG Arousal/Alertness Alert sleepy, often closes eyes with seated rest in chair when not engaged by therapist -SS Alert -LG Attention Span Distractability;Attends with cues to redirect -SS Attends with cues to redirect -LG Memory Decreased short term memory -SS Decreased short term memory -LG Current communication -- Appears Intact -LG Orientation Oriented to person -SS Oriented to person -LG Following Commands Follows one step commands with repetition -SS Follows one step commands with repetition -LG Safety Judgment Decreased awareness of need for safety -SS Decreased awareness of need for assistance -LG Awareness of Errors Assistance required to identify errors made;Assistance required to correct errors made;Decreased awareness of errors -SS Assistance required to identify errors made;Assistance required to correct errors made -LG Insight Not aware of deficits -SS Decreased awareness of deficits -LG Problem Solving Assistance required to identify errors made;Assistance required to generate solutions;Assistance required to implement solutions -SS Assistance required to identify errors made;Assistance required to generate solutions;Assistance required to implement solutions -LG Compliance/Behavior Easy to engage -SS Easy to engage -LG Balance Balance -- Yes -LG Static Sitting Balance Static Sitting-Balance Support -- Bilateral upper extremity supported -LG Static Sitting-Sitting Surface -- Bed -LG Static Sitting-Level of Assistance -- Close supervision -LG Static Standing Balance Static Standing-Balance Support -- Bilateral upper extremity supported -LG Static Standing-Standing Surface -- Floor -LG Static Standing-Level of Assistance -- Contact guard -LG Static Standing-Comment/# of Minutes -- Pt able to stand with ww and CGA for safety upon standing from bed. -LG Dynamic Standing Balance Dynamic Standing-Balance Support -- Bilateral upper extremity supported -LG Dynamic Standing-Balance -- -- side stepping at side of bed -LG Dynamic Standing-Standing Surface -- Mat mat on floor for pt safety -LG Dynamic Standing-Level of Assistance -- Contact guard;Minimum assistance -LG Supine Supine-Exercise Comments Max verbal and tactile cues: AAROM/AROM SLR, heel slide, SAQ x 6-10 reps -SS Pt engaged in ankle pumps x10 reps, and heel slides x10 reps each leg. -LG Seated Seated-Exercise Comments Max verbal and tactile cues AAROM/AROM hip flexion, LAQ + resistance x 10-15 reps -SS -- Standing Standing-Exercise Comments Max verbal/tactile cues standing june with 2WW support 2 x 10-12, cues for widening CHERRY -SS -- Bed Mobility Bed Mobility -- Yes -LG Bed Mobility 1 Bed Mobility From 1 -- Supine -LG Bed Mobility Type 1 -- To and from -LG Bed Mobility to 1 -- Edge of bed -LG Level of Assistance 1 -- Standby Assist -LG Bed Mobility Comments 1 Supine>side-lying L>sitting EOB with HOB minimally elevated and minimal assist x 1 + min-mod verbal/tactile cues for completing movement (physical assist mostly requiredd/t cognitive deficits and difficulty understanding cues as opposed to weakness alone, difficult todifferentiate between pt limitation due to weakness vs cognition) -SS HOB elevated, UE used on handrails for assistance -LG Bed Mobility 2 Bed Mobility From 2 -- Supine -LG Bed Mobility Type 2 -- To and from -LG Bed Mobility to 2 -- Side lying-right;Side lying-left -LG Level of Assistance 2 -- Standby Assist -LG Transfer 1 Transfer From 1 -- Sit -LG Transfer Type 1 -- To and from -LG Transfer to 1 -- Stand -LG Technique 1 -- Sit to stand;Stand to sit -LG Transfer Device 1 -- Wheeled walker -LG Transfer Level of Assistance 1 -- Contact Guard Assist;Minimum Assist -LG Trials/Comments 1 Sit<>stand from EOB with 2WW and max cues for hand placement on every stand, ~min-mod assist x 1 for force production, anterior lean in order to complete stand; Bed>chair 90d stand pivot with 2WW minimal assist/CGA + max verbal/tactile cues for safe mgmt of 2WW, safe alignment to surface, hand placement and controlled descent -SS Pt required CGA-Min A for sit to/from stand from bed with ww. Requires assistance for correct hand placement and for eccentric lowering to bed. -LG Transfers 2 Trials/Comments 2 Sit<>Stand multiple times to complete functional mobility and gait assessments in hallway. Also completes sit<>Stand sets 2 x 5 reps min-mod assist + ongoing max cues for hand placement to/from stand -SS -- Ambulation 1 Distance (ft) 1 -- 4 steps at side of bed -LG Surface 1 -- -- level mat -LG Device 1 -- Wheeled walker -LG Assistance 1 -- Contact Guard Assist;Minimum Assist -LG Gait: Requires assist with 1 -- Maintaining balance -LG Gait: Requires verbal cues to 1 -- Use assistive device safely;Utilize appropriate gait sequencing -LG Quality of Gait 1 -- decreased speed, narrow CHERRY -LG Ambulation Comments 1 Ambulates ~50'-60' x 2 with 2WW and minimal assist + wc follow + ongoing continuous cues for widening CHERRY, staying focused on task due to distractability, maintaining appropriate speed with 2WW and forward progression, etc -SS Pt able to take 4 steps at side of bed with ww andCGA-Min A for safety, balance, and motor planning. -LG Other Comments Other PT Comments -- Pt limited due to impaired cognition and fatigue. Pt more alert and able to follow commands this session, however he denied additional gait training due to fatigue. -LG Assessment Prognosis Good -SS Good -LG Problem List Gait deviations;Decreased strength;Decreased endurance;Impaired balance;Decreased mobility;Decreased cognition;Impaired judgement;Decreased safety awareness -SS Gait deviations;Decreasedstrength;Decreased endurance;Impaired balance;Decreased mobility;Decreased cognition;Decreased safety awareness -LG Barriers to Discharge Current Mobility Status;Cognition -SS -- Plan Plan Continue with current plan;If this is the last note, consider this the discharge summary -SS Continue with current plan;If this is the last note, consider this the discharge summary -LG Recommendation/Plan PT Recommendation/Plan Intermediate Facility - Intermediate Facility - Recommend SNF due to Skilled therapy needed to address functional deficits - -- PT Frequency 3-5x/wk -SS 3-5x/wk -LG Treatment/Interventions Balance Training;Bed mobility;Endurance training;Equipment eval/education;Functional activity;Functional transfer training;Gait training;Neuromuscular re-education;Stair traini ng;Strengthening;Therapeutic activity;Therapeutic exercise;Transfer training - Balance Training;Functional activity;Functional transfer training;Therapeutic activity;Transfer training;Gait training;Therapeutic exercise - PT Equipment Recommended -- Wheeled walker - Progress Slow progress, cognitive deficits -SS Slow progress, cognitive deficits -LG User Perdomo (r) = Recorded By, (t) = Taken By, (c) = Cosigned By Initials Name Effective Dates LG Saba Knight, PT 08/23/21 - SS Sid Anguiano DPT 12/29/18 - PT Notes 10/20/2021 12:05 PM Progress Notes signed by Sid Anguiano DPT , HYDROGRAPHIC SURVEYOR Eval and Treat Last 72 Hours HYDROGRAPHIC SURVEYOR Evaluation No documentation. HYDROGRAPHIC SURVEYOR Treatment No documentation. Clinical Swallow Study No documentation. HYDROGRAPHIC SURVEYOR Notes Notes from 10/18/21 through 10/20/21 No notes of this type exist for this encounter. * Plan of Care - Jemma Spivey RN - 10/19/2021 1:52 PM CDT Problem: Health Behavior: Goal: Understanding of discharge needs will improve Outcome: Progressing Problem: Activity: Goal: Mobility will improve Outcome: Progressing Goals: Clinical Goals for the Shift: VSS, safety, comfort, sitter Summary: alert and oriented x 4, on room air, good appetite, needs set up with meals, due meds given, on low bed specialty mattress, on VPO sitter, due meds given, call light within reach, will cont to monitor * Plan of Care - Wellington Delgado MSW - 10/19/2021 8:47 AM CDT SW received call from patient's ADELIA/Raine Redman ([phone]). She stated she has not received call from [facility] business office yet. SW notified [facility] admissions and requested the process be expedited. Addendum: SW received call from [facility] admissions/Mauro. She confirmed business office and herself spoke with [facility], explained Medicaid and answered questions regarding possibly private pay, DPOA expressed that she does NOT want patient on Medicaid. Per admissions, patient has been accepted at [facility] and [facility] for SNF, facility SW will assist with LTC planning. AMARJIT spoke with patient's ADELIA/Raine Redman. She verified the above information, agreed to [facility] submitting insurance auth for SNF and speaking with facility SW about LTC options. She had nofurther questions for SW at this time. SW notified [facility] admissions/Mauro. Insurance auth will be started when updated PT/OT notes are entered. * Plan of Care - Wen Goetz RN - 10/19/2021 3:09 AM CDT Goals: Clinical Goals for the Shift: vss, comfort, safety, rest, free from falls Summary: Pt A&Ox1, no c/o pain, virtual sitter, Q2 turns, took pills whole with water, pt rested through the night with bed in lowest position and alarm on. Problem: Health Behavior: Goal: Understanding of discharge needs will improve Outcome: Progressing Problem: Activity: Goal: Mobility will improve Outcome: Progressing Problem: Lack of Knowledge: Goal: [...] improve to fullest extent possible Outcome: Progressing Problem: Lack of Knowledge: Goal: Ability to state ways to decrease the risk of falls will improve Outcome: Progressing Problem: Safety: Goal: Will remain free from falls Outcome: Progressing Goal: Will remain free from injury from falls Outcome: Progressing Goal: Will remain free from falls and injury in home environment Outcome: Progressing Problem: Respiratory: Goal: Ability to maintain a clear airway will improve Outcome: Progressing Goal: Complications related to the disease process, condition or treatment will be avoided or minimized Outcome: Progressing Problem: Medication: Goal: Satisfaction with pain management regimen will improve Outcome: Progressing Problem: Sensory: Goal: Ability to identify factors that increase the pain will improve Outcome: Progressing Goal: Pain level will decrease Outcome: Progressing * Plan of Marilyn - Renetta Ledbetter RN - 10/18/2021 5:52 PM CDT Problem: Health Behavior: Goal: Understanding of discharge needs will improve Outcome: Progressing Problem: Activity: Goal: Mobility will improve Outcome: Progressing Problem: Lack of Knowledge: Goal: [...] improve to fullest extent possible Outcome: Progressing Problem: Lack of Knowledge: Goal: Ability to state ways to decrease the risk of falls will improve Outcome: Progressing Problem: Safety: Goal: Will remain free from falls Outcome: Progressing Goal: Will remain free from injury from falls Outcome: Progressing Goal: Will remain free from falls and injury in home environment Outcome: Progressing Problem: Respiratory: Goal: Ability to maintain a clear airway will improve Outcome: Progressing Goal: Complications related to the disease process, condition or treatment will be avoided or minimized Outcome: Progressing Problem: Medication: Goal: Satisfaction with pain management regimen will improve Outcome: Progressing Problem: Sensory: Goal: Ability to identify factors that increase the pain will improve Outcome: Progressing Goal: Pain level will decrease Outcome: Progressing Goals: Clinical Goals for the Shift: monitor VS, rest, safety Summary: AO to self, VSS, RA, pt monitored by virtual sitter for shift, no c/o of pain, remained free from falls, call light at the bedside, will continue to monitor. Renetta Ledbetter RN * Plan of Care - Wellington Delgado MSW - 10/18/2021 1:29 PM CDT [facility] delivery coordinator/Mauro completed on site assessment. Business office will complete financial screening with [facility] to determine if patient will qualify for Medicaid. AMARJIT notified patient's DPOA/Raine Redman ([phone]). She voiced understanding, verified she is okay with speaking to [facility] business office. She had no further questions for AMARJIT at this time. * Plan of Care - Felicia Barr RN - 10/18/2021 3:37 AM CDT Problem: Health Behavior: Goal: Understanding of discharge needs will improve Outcome: Progressing Problem: Activity: Goal: Mobility will improve Outcome: Progressing Problem: Lack of Knowledge: Goal: [...] improve to fullest extent possible Outcome: Progressing Problem: Lack of Knowledge: Goal: Ability to state ways to decrease the risk of falls will improve Outcome: Progressing Problem: Safety: Goal: Will remain free from falls Outcome: Progressing Goal: Will remain free from injury from falls Outcome: Progressing Goal: Will remain free from falls and injury in home environment Outcome: Progressing Problem: Respiratory: Goal: Ability to maintain a clear airway will improve Outcome: Progressing Goal: Complications related to the disease process, condition or treatment will be avoided or minimized Outcome: Progressing Problem: Medication: Goal: Satisfaction with pain management regimen will improve Outcome: Progressing Problem: Sensory: Goal: Ability to identify factors that increase the pain will improve Outcome: Progressing Goal: Pain level will decrease Outcome: Progressing Goals: Clinical Goals for the Shift: monitor VS, frequent turns, comfort/safety Summary: alert and oriented to self. Pt rested overnight with no complaints or indications of pain or discomfort. Meds crushed in applesauce and tolerated well. Pt continues to be in a low bed with fall mats and all side rails raised. Bed alarm in place and virtual sitter continued. Will update as needed. * [facility] Note - Wellington Delgado MSW - 10/17/2021 3:45 PM CDT Patient Information: Comprehensive Nursing Documentation Attending Provider: Jennifer Gao MD Allergies: Penicillins Isolation: Contact Infection: MDR gram neg/ESBL (12/21/19), COVID: Recovered (10/16/21) Code Status: FULL Advance Care Planning Activity Ht: 180.3 cm (5' 11 ) Wt: 80.6 kg (177 lb 11.1 oz) Admission Cmt: None Principal Problem: Sepsis due to COVID-19 ([facility]) (HCC) [U07.1,A41.89] Intake/Output 10/14/21 07 - 10/15/21 0659 10/15/21 07 - 10/16/21 0659 Total Total Intake (ml) 118 130 Output (ml) 125 -- Net (ml) -7 130 Patient Lines/Drains/Airways Status Active Airway / Central venous catheter / Drain / Epidural cathether / Intraosseous line / Peripherally inserted central catheter / Peripheral intravenous line / Arterial line Name Placement date Placement time Site Days External Urinary Catheter -- -- -- -- Peripheral IV 10/08/21 18 G Left Wrist 10/08/21 1058 Wrist 9 Patient Lines/Drains/Airways Status Active Wound / Pressure ulcer / Johnson / Negative Pressure Wound Wound 06/27/21 MASD (Moisture associated skin damage) Perineum , buttocks Date First Assessed 06/27/21 Site Perineum Time First Assessed 1425 Days 112 Wound Type: MASD (Moisture associated skin damage) Wound Description (Comments): , buttocks Hardin Fall Risk Flowsheet Row Most Recent Value Prior Fall Event (Autopopulated from EMR) 10/07/2021 (25 points) ............filed at 10/17/2021 09 History of Falling 25 ............filed at 10/17/2021 09 Secondary Diagnosis 15 ............filed at 10/17/2021 09 Ambulatory Aids 0 ............filed at 10/17/2021 09 Intravenous Therapy/Heparin/Saline Lock 20 ............filed at 10/17/2021 0900 Gait/Transferring 10 ............filed at 10/17/2021 09 Mental Status 15 ............filed at 10/17/2021 09 Hardin Fall Risk Score 85 ............filed at 10/17/2021 09 Vital Signs Report 10/16 0659 10/17 1545 Most Recent Temp (??C) 36.5 - 36.9 36.6 - 36.9 36.6 (97.9) 10/17 1525 Pulse 87 - 104 73 - 90 90 10/17 1525 Resp 18 - 20 SpO2 (%) 94 - 100 97 97 10/17 1525 BP 117/73 - 155/85 136/82 - 148/97 148/97 10/17 1525 MAP (mmHg) 91 - 104 93 - 114 114 10/17 1525 Non Violent Restraint Flowsheet Row Most Recent Value Restraint Alternative Less Restrictive Alternative Bed Exit Alarm, Low Bed filed at 10/17/2021 0900 Restraint Reason Restraint Type (NV) Every 2 Hours Default Flowsheet Data (most recent) Endurance Tests No documentation. Default Flowsheet Data (most recent) Balance Tests - 10/06/21 0959 Tinetti Sitting Balance 1 Arises 1 Attempts to Arise 2 Immediate Standing Balance (First 5 Seconds) 1 Standing Balance 1 Nudged 1 Eyes Closed 1 Turned 360 Degrees: Steadiness 0 Turned 360 Degrees: Continuity of Steps 0 Sitting Down 1 Balance Score 9 Initiation of Gait 1 Step Height: R Swing Foot 1 Step Length: R Swing Foot 1 Step Height: L Swing Foot 1 Step Length: L Swing Foot 1 Step Symmetry 0 Step Continuity 0 Path 1 Trunk 0 Walking Time 1 Gait Score 7 Total Score 16 Nursing Nutrition Feeding Level of Assistance 10/17 2039 Needs assist 10/16 09 Needs assist 10/16 0855 Needs assist;Needs set up 10/15 2000 Needs assist;Needs set up 10/15 1700 Needs set up 10/15 1223 Needs set up Appetite 10/16 0906 Good Nursing Mobility Activity 10/17 1525 Resting in bed 10/17 0900 Resting in bed 10/17 0832 Resting in bed 10/17 0209 Sleeping 10/17 0003 Turn 10/16 2220 Turn 10/16 2100 Resting in bed 10/16 2040 Resting in bed;Turn 10/16 1800 Resting in bed 10/16 1713 Resting in bed 10/16 1600 Resting in bed 10/16 1549 Resting in bed 10/16 1400 Resting in bed 10/16 1200 Resting in bed;Sleeping 10/16 1000 Resting in bed;Sleeping 10/16 0906 Resting in bed 10/16 0855 Resting in bed 10/16 0600 Resting in bed;Turn 10/16 0400 Resting in bed;Turn 10/16 0200 Resting in bed;Turn 10/16 0000 Resting in bed;Turn 10/15 2200 Resting in bed;Turn 10/15 2000 Resting in bed;Turn 10/15 1930 Resting in bed 10/15 1700 Resting in bed 10/15 1436 Turn 10/15 1223 Turn;Resting in bed 10/15 1035 Turn;Resting in bed 10/15 0800 Resting in bed 10/15 0520 Dangle;Resting in bed 10/15 0432 Resting in bed;Turn 10/15 0328 Sleeping 10/15 0137 Sleeping 10/14 2323 Sleeping;Resting in bed 10/14 2235 Resting in bed 10/14 2119 Resting in bed 10/14 2013 Resting in bed 10/14 193 Resting in bed 10/14 1812 Dangle 10/14 1741 Resting in bed 10/14 1607 Resting in bed Level of Assistance 10/17 0832 Moderate assist, patient does 50-74% 10/16 0906 Moderate assist, patient does 50-74% 10/16 0855 Moderate assist, patient does 50-74% 10/16 0600 Maximum assist, patient does 25-49% 10/16 0400 Maximum assist, patient does 25-49% 10/16 0200 Maximum assist, patient does 25-49% 10/16 0000 Maximum assist, patient does 25-49% 10/15 2200 Maximum assist, patient does 25-49% 10/16 1999 Maximum assist, patient does 25-49% 10/15 1223 Maximum assist, patient does 25-49% 10/15 0800 Maximum assist, patient does 25-49% 10/14 2013 Maximum assist, patient does 25-49% Assistive Device 10/17 0832 Mechanical lift 10/17 2039 Mechanical lift 10/16 0855 Mechanical lift 10/15 1223 Mechanical lift 10/15 0800 Mechanical lift 10/14 2013 Mechanical lift Repositioned 10/17 1000 Right side;Pillow support 10/17 0209 Right side;Pillow support 10/17 0003 Left side;Pillow support 10/16 2220 Right side;Pillow support 10/16 2040 Left side;Pillow support 10/16 0855 Supine 10/16 0600 Supine;Pillow support 10/16 0400 Right side;Pillow support 10/16 0200 Left side;Pillow support 10/16 0000 Right side;Pillow support 10/15 2200 Left side;Pillow support 10/15 2000 Right side;Pillow support 10/15 1700 Semi Bird's 10/15 1436 Right side;Pillow support 10/15 1223 Semi Bird's 10/15 1035 Left side 10/15 043 Left side;Pillow support 10/14 2235 Right side;Pillow support 10/14 2013 Pillow support Positioning Frequency 10/17 0003 Every 2 hours 10/16 2220 Every 2 hours 10/16 2040 Every 2 hours 10/16 0855 Every 2 hours 10/16 0600 Every 2 hours 10/16 0400 Every 2 hours 10/16 0200 Every 2 hours 10/16 0000 Every 2 hours 10/15 2200 Every 2 hours 10/15 2000 Every 2 hours 10/15 1700 Every 2 hours 10/15 1436 Every 2 hours 10/15 1223 Every 2 hours 10/15 1035 Every 2 hours 10/15 0432 Every 2 hours 10/14 2013 Every 2 hours Head of Bed Elevated 10/16 2040 HOB less than 20 10/16 0855 HOB less than 20 10/16 0600 HOB less than 20 10/16 0400 HOB less than 20 10/16 0200 HOB less than 20 10/16 0000 HOB less than 20 10/15 2200 HOB less than 20 10/15 2000 HOB 30 10/15 1700 Self regulated 10/15 1223 Self regulated 10/15 1035 Self regulated 10/15 0800 Self regulated 10/14 2013 Self regulated Heels/Feet 10/16 2040 Foot of bed elevated 10/16 0855 Foot of bed elevated 10/16 0600 Foot of bed elevated;Heels elevated off bed 10/16 0400 Foot of bed elevated;Heels elevated off bed 10/16 0200 Foot of bed elevated 10/16 0000 Foot of bed elevated;Heels elevated off bed 10/15 2200 Foot of bed elevated;Heels elevated off bed 10/15 2000 Foot of bed elevated;Heels elevated off bed 10/15 1223 Foot of bed elevated 10/15 0800 Foot of bed elevated 10/14 2013 Foot of bed elevated Range of Motion 10/16 2040 Active;All extremities 10/16 0855 Active;All extremities 10/16 0400 Active;All extremities 10/16 0000 Active;All extremities 10/15 2200 Active;All extremities 07/10 2000 Active;All extremities 10/14 2013 Active;All extremities Type of Device 10/17 899 Mechanical compression 10/17 2039 Mechanical compression 10/16 06 Mechanical compression 10/16 0400 Mechanical compression 10/16 0200 Mechanical compression 10/16 0000 Mechanical compression 10/15 2200 Mechanical compression 10/15 2000 Mechanical compression 10/14 2013 -- (Comment: lovenox) Mechanical Compression Site 10/17 09 Bilateral 10/16 204 Bilateral 10/16 0731 Bilateral 10/16 06 Bilateral 10/16 0400 Bilateral 10/16 0200 Bilateral 10/16 0000 Bilateral 10/15 2200 Bilateral 10/16 1999 Bilateral Mechanical Compression Type 10/17 09 IPC/SCD 10/16 2040 IPC/SCD 10/16 0731 IPC/SCD 10/16 06 IPC/SCD 10/16 0400 IPC/SCD 10/16 0200 IPC/SCD 10/16 0000 IPC/SCD 10/15 2200 IPC/SCD 10/15 2000 IPC/SCD Mechanical Compression Status 10/17 09 On 10/16 2040 On 10/16 0731 On 10/16 0600 On 10/16 0400 On 10/16 0200 On 10/16 0000 On 10/15 2200 On 10/16 1999 On Default Flowsheet Data (last 24 hours) Sitter Documentation Row Name 10/17/21 0900 10/16/21 20410/16/21 1800 Sitter Documentation Sitter Continued Continued Continued Sitter Type Continuous Virtual Patient Observation Continuous Virtual Patient Observation Continuous Virtual Patient Observation RN Safety Check No unsafe behaviors observed, safe environment maintained -- -- , Meds and Admin Active Only All Meds/Most Recent Administrations All Meds/Most Recent Administrations sodium chloride 0.9% bolus 1,000 mL [[id number]] Ordering Provider: Gian Jackson MD Status: Completed (Past End Date/Time) Ordered On: 10/04/21 1412 Starts/Ends: 10/04/21 1413 - 10/04/21 1545 Ordered Dose (Remaining/Total): 1,000 mL (0/1) Route: intravenous Frequency: Once Ordered Rate/Order Duration: 1,000 mL/hr / 1 Hours Line Med Link Info Comment Peripheral IV 07/03/21 20 G Anterior;Left Forearm 10/04/21 1412 by Lakia Youngblood RN -- Timestamps Action Dose / Rate / Duration Route Other Information 10/04/21 1412 New Bag 1,000 mL 1,000 mL/hr 1 Hours intravenous Performed by: Lakia Youngblood RN sodium chloride 0.9% bolus 1,400 mL [[id number]] Ordering Provider: Alysha Ramirez MD Status: Completed (Past End Date/Time) Ordered On: 10/04/21 1418 Starts/Ends: 10/04/21 1419 - 10/04/21 1619 Ordered Dose (Remaining/Total): 1,400 mL (0/1) Route: intravenous Frequency: Once Ordered Rate/Order Duration: 1,400 mL/hr / 1 Hours Timestamps Action Dose / Rate / Duration Route Other Information 10/04/21 1501 New Bag 1,400 mL 1,400 mL/hr 1 Hours intravenous Performed by: Esau Wong RN dexAMETHasone (DECADRON) 4 mg/mL injection 6 mg [[id number]] Ordering Provider: Alysha Ramirez MD Status: Completed (Past End Date/Time) Ordered On: 10/04/21 171 Starts/Ends: 10/04/21 1713 - 10/04/21 1801 Ordered Dose (Remaining/Total): 6 mg (0/1) Route: intravenous Frequency: Once Ordered Rate/Order Duration: -- / 2 Minutes Timestamps Action Dose / Duration Route Other Information 10/04/21 1759 Given 6 mg 2 Minutes intravenous Performed by: Esau Wong RN Scanned Package: 77970-199-74 folic acid (FOLVITE) tablet 1 mg [[id number]] Ordering Provider: Miguel Flores MD Status: Dispensed Ordered On: 10/05/21 0021 Start: 10/05/21 0900 Ordered Dose (Remaining/Total): 1 mg (--/--) Route: oral Frequency: Daily Ordered Rate/Order Duration: -- / -- Timestamps Action Dose Route Other Information 10/17/21 0930 Given 1 mg oral Performed by: Vy Vasquez RN Scanned Package: 00718-687-[address] (PROTONIX) extended release tablet 40 mg [[id number]] Ordering Provider: Miguel Flores MD Status: Dispensed Ordered On: 10/05/2120 Start: 10/05/21899 Ordered Dose (Remaining/Total): 40 mg (--/--) Route: oral Frequency: Daily Ordered Rate/Order Duration: -- / -- Admin Instructions: Do not crush, chew, cut, dissolve, open or otherwise manipulate tablet/capsule. Timestamps Action Dose Route Other Information 10/17/21929 Given 40 mg oral Performed by: Vy Vasquez RN Scanned Package: 78858-131-03 pravastatin (PRAVACHOL) tablet 40 mg [[id number]] Ordering Provider: Miguel Flores MD Status: Dispensed Ordered On: 10/05/2120 Start: 10/05/21899 Ordered Dose (Remaining/Total): 40 mg (--/--) Route: oral Frequency: Daily Ordered Rate/Order Duration: -- / -- Timestamps Action Dose Route Other Information 10/17/21930 Given 40 mg oral Performed by: Vy Vasquez RN Scanned Package: 56761-567-12 thiamine (VITAMIN B1) tablet 100 mg [[id number]] Ordering Provider: Miguel Flores MD Status: Dispensed Ordered On: 10/05/2120 Start: 10/05/21899 Ordered Dose (Remaining/Total): 100 mg (--/--) Route: oral Frequency: Every morning Ordered Rate/Order Duration: -- / -- Timestamps Action Dose Route Other Information 10/17/21929 Given 100 mg oral Performed by: Vy Vasquez RN Scanned Package: [id number] ondansetron ODT (ZOFRAN-ODT) disintegrating tablet 4 mg [[id number]] Ordering Provider: Miguel Flores MD Status: Dispensed Ordered On: 10/05/2120 Start: 10/05/2120 Ordered Dose (Remaining/Total): 4 mg (--/--) Route: oral Frequency: Every 6 hours PRN Ordered Rate/Order Duration: -- / -- Timestamps Action Dose Route Other Information 10/07/21 1319 Given 4 mg oral Performed by: Aby Hsieh RN Scanned Package: 51783-380-29 ondansetron (ZOFRAN) injection 4 mg [[id number]] Ordering Provider: Miguel Flores MD Status: Verified Ordered On: 10/05/2120 Start: 10/05/2120 Ordered Dose (Remaining/Total): 4 mg (--/--) Route: intravenous Frequency: Every 6 hours PRN Ordered Rate/Order Duration: -- / 2 Minutes (No admins scheduled or recorded for this medication) acetaminophen (TYLENOL) tablet 650 mg [[id number]] Ordering Provider: Miguel Flores MD Status: Dispensed Ordered On: 10/05/2120 Start: 10/05/2120 Ordered Dose (Remaining/Total): 650 mg (--/--) Route: oral Frequency: Every 4 hours PRN Ordered Rate/Order Duration: -- / -- Timestamps Action Dose Route Other Information 10/09/21 110 Given 650 mg oral Performed by: Renetta Ledbetter RN Scanned Package: [id number], 8919-9132-36 remdesivir (VEKLURY) 200 mg/290 mL in sodium chloride 0.9% infusion (premix) 200 mg [[id number]] Ordering Provider: Saqib Currie DO Status: Completed (Past End Date/Time) Ordered On: 10/04/211717 Starts/Ends: 10/04/211722 - 10/04/21 1910 Ordered Dose (Remaining/Total): 200 mg (0/1) Route: intravenous Frequency: Every 24 hours Ordered Rate/Order Duration: 290 mL/hr / 60 Minutes Admin Instructions: Do not shake or tube. Question Answer Comment [facility] appropriate use criteria for remdesivir are limited to the following below options. It is recommended that therapy for infections outside of these indications be discussed with infectious diseases, if available.: Laboratory- confirmed severe and/or critical COVID-19 -- Timestamps Action Dose / Rate / Duration Route Other Information 10/04/21 1800 New Bag 200 mg 290 mL/hr 60 Minutes intravenous Performed by: Esau Wong RN Scanned Package: [id number], 4421-3028-40 remdesivir (VEKLURY) 100 mg/270 mL in sodium chloride 0.9% infusion (premix) 100 mg [[id number]] Ordering Provider: Saqib Currie DO Status: Completed (Past End Date/Time) Ordered On: 10/04/21 1718 Starts/Ends: 10/05/21 1704 - 10/08/21 1739 Ordered Dose (Remaining/Total): 100 mg (0/4) Route: intravenous Frequency: Every 24 hours Ordered Rate/Order Duration: 270 mL/hr / 60 Minutes Admin Instructions: Do not shake or tube. Note to pharmacy: Double check timing upon verification Question Answer Comment [facility] appropriate use criteria for remdesivir are limited to the following below options. It is recommended that therapy for infections outside of these indications be discussed with infectious diseases, if available.: Laboratory- confirmed severe and/or critical COVID-19 -- Line Med Link Info Comment Peripheral IV 10/04/21 20 G Left Forearm 10/05/21 1603 by Jemma Spivey RN -- Timestamps Action Dose / Rate / Duration Route Other Information 10/08/21 1632 New Bag 100 mg 270 mL/hr 60 Minutes intravenous Performed by: Aby Hsieh RN Scanned Package: [address]-5, 3836-6535-84 potassium chloride ER (KLOR-CON) extended release tablet 20 mEq [[id number]] Ordering Provider: Elisa Oliva MD Status: Completed (Past End Date/Time) Ordered On: 10/06/21 1121 Starts/Ends: 10/06/21 1200 - 10/06/21 1217 Ordered Dose (Remaining/Total): 20 mEq (0/1) Route: oral Frequency: Once Ordered Rate/Order Duration: -- / -- Admin Instructions: Do not crush, chew, cut, dissolve, open or otherwise manipulate tablet/capsule. Timestamps Action Dose Route Other Information 10/06/21 1217 Given 20 mEq oral Performed by: Ken Hernández Scanned Package: 9002-8302-97 terazosin (HYTRIN) capsule 10 mg [[id number]] Ordering Provider: Miguel Flores MD Status: Dispensed Ordered On: 10/07/21642 Start: 10/07/21 2100 Ordered Dose (Remaining/Total): 10 mg (--/--) Route: oral Frequency: Nightly Ordered Rate/Order Duration: -- / -- Timestamps Action Dose Route Other Information 10/16/214 Given 10 mg oral Performed by: Aniyah Berumen RN Scanned Package: 09023-250-28, 32851-534-02 metoprolol tartrate (LOPRESSOR) immediate release tablet 100 mg [[id number]] Ordering Provider: Miguel Flores MD Status: Dispensed Ordered On: 10/07/21642 Start: 10/07/21 0900 Ordered Dose (Remaining/Total): 100 mg (--/--) Route: oral Frequency: 2 times daily Ordered Rate/Order Duration: -- / -- Timestamps Action Dose Route Other Information 10/17/21 0931 Given 100 mg oral Performed by: Vy Vasquez RN Scanned Package: 11891-701-47, 71526-787-43 potassium chloride ER (KLOR-CON) extended release tablet 30 mEq [[id number]] Ordering Provider: Elisa Oliva MD Status: Completed (Past End Date/Time) Ordered On: 10/07/21719 Starts/Ends: 10/07/21 0800 - 10/07/21 1146 Ordered Dose (Remaining/Total): 30 mEq (0/2) Route: oral Frequency: Every 4 hours Ordered Rate/Order Duration: -- / -- Admin Instructions: Total dose = 60 mEq Do not crush, chew, cut, dissolve, open or otherwise manipulate tablet/capsule. Timestamps Action Dose Route Other Information 10/07/21 1146 Given 30 mEq oral Performed by: Aby Hsieh RN Scanned Package: 8916-9030-14, 1487-3991-84 magnesium sulfate 2 g/50 mL in water (premix) 2 g [[id number]] Ordering Provider: Elisa Oliva MD Status: Dispensed (Past End Date/Time) Ordered On: 10/07/21 1058 Starts/Ends: 10/07/21 1130 - 10/08/21 1130 Ordered Dose (Remaining/Total): 2 g (/) Route: intravenous Frequency: Once Ordered Rate/Order Duration: -- / 60 Minutes Timestamps Action Duration Route Other Information 10/07/21 1248 Restarted 60 Minutes intravenous Performed by: Aby Hsieh RN ceFAZolin (ANCEF) 2,000 mg/20 mL in sterile water (premix) 2,000 mg [[id number]] Ordering Provider: Miguel Flores MD Status: Completed (Past End Date/Time) Ordered On: 10/08/21 1249 Starts/Ends: 10/08/21 1800 - 10/09/21 0242 Ordered Dose (Remaining/Total): 2,000 mg (0) Route: intravenous Frequency: Every 8 hours Ordered Rate/Order Duration: 400 mL/hr / 3 Minutes Admin Instructions: Beginning 8 hours after last edna-operative dose. Line Med Link Info Comment Peripheral IV 10/07/21 Right;Anterior Hand 10/08/21 1658 by Aby Hsieh RN -- Timestamps Action Dose / Rate / Duration Route Other Information 10/09/21 0239 Given 2,000 mg 400 mL/hr 3 Minutes intravenous Performed by: Hamida Shirley RN HYDROcodone-acetaminophen (NORCO) 5-325 mg per tablet 1 tablet [[id number]] Ordering Provider: Miguel Flores MD Status: Dispensed Ordered On: 10/08/21 1249 Start: 10/08/21 1249 Ordered Dose (Remaining/Total): 1 tablet (--/--) Route: oral Frequency: Every 4 hours PRN Ordered Rate/Order Duration: -- / -- Admin Instructions: May repeat in 1 hour if pain is uncontrolled or increasing. Max 2 doses within 1 dosing interval. Timestamps Action Dose Route Other Information 10/17/21 0326 Given 1 tablet oral Performed by: Aniyah Berumen RN Scanned Package: 58476-547-44 enoxaparin (LOVENOX) syringe 40 mg [[id number]] Ordering Provider: Saqib Currie DO Status: Dispensed Ordered On: 10/10/21 1431 Start: 10/10/21 2100 Ordered Dose (Remaining/Total): 40 mg (--/--) Route: subcutaneous Frequency: Daily (for enoxaparin) Ordered Rate/Order Duration: -- / -- Timestamps Action Dose Route / Site Other Information 10/16/212042 Given 40 mg subcutaneous Left Lower Abdomen Performed by: Aniyah Berumen RN Scanned Package: 29906-530-68 aspirin enteric coated tablet 81 mg [[id number]] Ordering Provider: Saqib Currie DO Status: Dispensed Ordered On: 10/10/21 1431 Start: 10/11/21 0900 Ordered Dose (Remaining/Total): 81 mg (--/--) Route: oral Frequency: Daily Ordered Rate/Order Duration: -- / -- Admin Instructions: Do not crush, chew, cut, dissolve, open or otherwise manipulate tablet/capsule. Timestamps Action Dose Route Other Information 10/17/21 0931 Given 81 mg oral Performed by: Vy Vasquez RN Scanned Package: [id number] * [facility]IN Note - Wellington Delgado MSW - 10/17/2021 3:44 PM CDT Images from the original note were not included. Patient Information: OT Eval and Treat Last 72 Hours OT Evaluation Row Name 10/16/21 0955 OT Received On 10/16/21 -CS Subjective Comment Pt declines, stating that he is too comfortable and warm. Does not request therapist to return. Will continue to follow. -CS OT Missed Visit Reason Patient declined -CS User Perdomo (r) = Recorded By, (t) = Taken By, (c) = Cosigned By Initials Name Effective Dates CS Zoey Alfred, OT 08/17/21 - OT Treatment Row Name 10/13/21 1400 10/11/21 0937 Session Type -- Treatment -CS OT Received On 10/13/21 -EG 10/11/21 -CS Safe Environment -- Arm Band Checked;Chair Alarm placed and activated;Call Light within Reach;Notified RN;Patient found in Supine;Overbed Table within Reach -CS Subjective -- Agreeable to Therapy -CS OT Missed Visit Reason -- unavailable, receiving bath from [facility]. -EG -- Family/Caregiver Present -- No -CS Precautions -- Bed/Chair Alarm;Fall risk -CS Weight Bearing Restrictions -- Yes -CS RLE Weight Bearing -- WBAT -CS Breathing -- 0 -CS Negative Vocalization -- 1 -CS Facial Expression -- 0 -CS Body Language -- 0 -CS Consolability -- 0 -CS PAINAD Score -- 1 -CS Feeding: Where assessed -- Sitting;Chair -CS Feeding: Level of assistance -- Minimum Assist -CS Feeding: Assistance with -- Scooping food;Beverage management;Cutting food;Sequencing -CS Grooming: Where assessed -- Standing at sink -CS Grooming: Level of assistance -- Moderate Assist -CS Grooming: Assistance with -- Teeth care;Increased time to complete;Standing with assistive device;Safety -CS Bathing: Where assessed -- Sitting;Chair sponge bath -CS Bathing: Level of assistance -- Moderate Assist -CS Bathing: Assistance with -- Increased time to complete ;Right upper leg;Left upper leg;Right lower leg including foot;Left lower leg including foot;Sequencing;Safety;Attending to task -CS LE Dressing: Where assessed -- Sitting;Chair -CS LE Dressing: Level of assistance -- Maximum Assist -CS LE Dressing: Assistance with -- Don/doff R sock;Don/doff L sock -CS Bed Mobility Comments 1 -- Supine>sit Mod A. Able to sit EOB CGA with UE support, -CS Trials/Comments 1 -- Sit>stand from EOB to WW Mod A. Mod A for stand pivot transfer to recliner.Sit>stand from recliner to WW Mod A. Mod A for functional mobility in room with use of WW and close chair follow. Returned to recliner Mod A. Pt requires cueing throughout for proper use of WW, advancing LEs, reaching back for transfer surface, and slowed, controlled descent. -CS Overall Cognitive Status -- Impaired -CS Arousal/Alertness -- Delayed responses to stimuli -CS Attention Span -- Attends with cues to redirect -CS Memory -- Decreased short term memory;Decreased recall of recent events -CS Current communication -- Appears Intact -CS Orientation -- Oriented to person -CS Following Commands -- Follows one step commands with repetition -CS Safety Judgment -- Decreased awareness of need for assistance -CS Awareness of Errors -- Assistance required to identify errors made;Assistance required to correct errors made -CS Insight -- Decreased awareness of deficits -CS Problem Solving -- Assistance required to identify errors made;Assistance required to generate solutions;Assistance required to implement solutions -CS Compliance/Behavior -- Easy to engage -CS Additional Activities Comments -- Pt requires several cues throughout session to open eyes, but participates easily in tasks. Pt cooperative and pleasant. Pt requires increased time to initiate tasks, but once started, finishes task with decreased assist. Decreased safety awareness demoed throughout session with several LOB/lateral and anterior leans that require Mod A to correct. -CS Activity Tolerance Comments -- BP 132/90, HR 74-76, O2 92-94% on RA -CS Comments -- Left with call light in reach, needs met, chair alarm on, sitter present, SCDs in place. -CS Prognosis -- Good -CS Plan -- Continue with current plan;If this is the last note, consider this the discharge summary -CS OT Recommendation -- Intermediate Facility -CS Recommend SNF due to -- Risk of injury at home;Unable to safely care for self in the home;Skilled therapy needed to address care for self in the home;Skilled therapy needed to address functional deficits -CS Progress -- Progressing toward goals -CS User Perdomo (r) = Recorded By, (t) = Taken By, (c) = Cosigned By Initials Name Effective Dates EG Taryn Fuentes, OT 08/17/21 - CS Zoey Alfred OT 08/17/21 - OT Notes 10/16/2021 2:34 PM Progress Notes signed by Zoey Alfred, OT , PT Eval and Treat Last 72 Hours PT Evaluation No documentation. PT TREATMENT (last 168 hours) PT Treatment Row Name 10/16/21 1456 10/11/21 1444 PT Last Visit Session Type Treatment -LG Treatment -LG Safe Environment Arm Band Checked;Bed Alarm placed and activated;Call Light within Reach;Notified RN;Patient found in Supine;Overbed Table within Reach -LG Arm Band Checked;Chair Alarm placed and activated;Call Light within Reach;Notified RN;Patient found sitting in Chair;Overbed Table within Reach sitter present -LG Subjective Agreeable to Therapy -LG Agreeable to Therapy -LG Subjective Comment Pt confused but indicates he is agreeable to participating in physical therapy. -LG Pt very lethargic with eyes closed most of session but verbalizes yes to work participate in therapy. -LG Additional Pertinent History -- The patient had unwitnessed fall here in the hospital on 10/07 and was found to have right femur fracture. He underwent right [employer] Trigen Intertan trochanteric nailing of intertrochanteric femur fracture 10/08. -LG Family/Caregiver Present No -LG No -LG Precautions Precautions Bed/Chair Alarm;Fall risk -LG Bed/Chair Alarm;Fall risk -LG Weight Bearing Restrictions Yes -LG Yes -LG RLE Weight Bearing WBAT -LG WBAT -LG Precaution Comments Pt has sitter d/t confusion. -LG Pt has sitter in room d/t confusion and pt being a high fall risk. -LG Activity Tolerance Activity Tolerance Comments Post activity vitals: 98% on RA, HR 86. -LG Pre activity vitals: 94%, HR 73, 137/85 -LG Pain Assessment Pain Assessment 0-10 -LG 0-10 -LG Pain Score 0 - No pain -LG 0 - No pain -LG Clinical Progression Not changed -LG Not changed -LG Cognition Cognition Comments Pt is [place] -LG Pt is [place] -LG Overall Cognitive Status Impaired -LG Impaired -LG Arousal/Alertness Alert -LG Delayed responses to stimuli;Lethargic -LG Attention Span Attends with cues to redirect -LG Attends with cues to redirect -LG Memory Decreased short term memory -LG -- Current communication Appears Intact -LG -- Orientation Oriented to person -LG Oriented to person -LG Following Commands Follows one step commands with repetition -LG Follows one step commands with repetition -LG Safety Judgment Decreased awareness of need for assistance -LG Decreased awareness of need for assistance -LG Awareness of Errors Assistance required to identify errors made;Assistance required to correct errors made -LG Assistance required to identify errors made;Assistance required to correct errors made -LG Insight Decreased awareness of deficits -LG Decreased awareness of deficits -LG Problem Solving Assistance required to identify errors made;Assistance required to generate solutions;Assistance required to implement solutions -LG Assistance required to identify errors made;Assistance required to generate solutions;Assistance required to implement solutions -LG Compliance/Behavior Easy to engage -LG Easy to engage -LG Balance Balance Yes -LG Yes -LG Static Sitting Balance Static Sitting-Balance Support Bilateral upper extremity supported -LG -- Static Sitting-Sitting Surface Bed -LG -- Static Sitting-Level of Assistance Close supervision -LG -- Static Standing Balance Static Standing-Balance Support Bilateral upper extremity supported -LG Bilateral upper extremity supported -LG Static Standing-Standing Surface Floor -LG Floor -LG Static Standing-Level of Assistance Contact guard -LG Contact guard;Minimum assistance -LG Static Standing-Comment/# of Minutes Pt able to stand with ww and CGA for safety upon standing frombed. -LG Pt stood at walker for approx 30 seconds before unexpectedly sitting back into recliner. CGA to Min Assist for safety and balance -LG Dynamic Standing Balance Dynamic Standing-Balance Support Bilateral upper extremity supported -LG -- Dynamic Standing-Balance -- side stepping at side of bed -LG -- Dynamic Standing-Standing Surface Mat mat on floor for pt safety -LG -- Dynamic Standing-Level of Assistance Contact guard;Minimum assistance -LG -- Supine Supine-Exercise Comments Pt engaged in ankle pumps x10 reps, and heel slides x10 reps each leg. -LG-- Bed Mobility Bed Mobility Yes -LG -- Bed Mobility 1 Bed Mobility From 1 Supine -LG -- Bed Mobility Type 1 To and from -LG -- Bed Mobility to 1 Edge of bed -LG -- Level of Assistance 1 Standby Assist -LG -- Bed Mobility Comments 1 HOB elevated, UE used on hand rails for assistance -LG Pt received and ended session sitting in recliner. -LG Bed Mobility 2 Bed Mobility From 2 Supine -LG -- Bed Mobility Type 2 To and from -LG -- Bed Mobility to 2 Side lying-right;Side lying-left -LG -- Level of Assistance 2 Standby Assist -LG -- Transfer 1 Transfer From 1 Sit -LG Sit -LG Transfer Type 1 To and from -LG To and from -LG Transfer to 1 Stand -LG Stand -LG Technique 1 Sit to stand;Stand to sit -LG Sit to stand;Stand to sit -LG Transfer Device 1 Wheeled walker -LG Wheeled walker -LG Transfer Level of Assistance 1 Contact Guard Assist;Minimum Assist -LG Minimum Assist -LG Trials/Comments 1 Pt required CGA-Min A for sit to/from stand from bed with ww. Requires assistancefor correct hand placement and for eccentric lowering to bed. -LG 2 reps of sit to/from stand from recliner with ww and min assist for force production and safety. Therapist instructed pt to stay standing however after approx 30 seconds of standing pt unexpectedly sat back into chair. -LG Ambulation 1 Distance (ft) 1 4 steps at side of bed -LG -- Surface 1 -- level mat -LG -- Device 1 Wheeled walker -LG -- Assistance 1 Contact Guard Assist;Minimum Assist -LG -- Gait: Requires assist with 1 Maintaining balance -LG -- Gait: Requires verbal cues to 1 Use assistive device safely;Utilize appropriate gait sequencing -LG-- Quality of Gait 1 decreased speed, narrow CHERRY -LG -- Ambulation Comments 1 Pt able to take 4 steps at side of bed with ww and CGA-Min A for safety, balance, and motor planning. -LG Unable to attempt ambulation this session due to pt's lethargy and inability to consistently follow commands. -LG Other Comments Other PT Comments Pt limited due to impaired cognition and fatigue. Pt more alert and able to follow commands this session, however he denied additional gait training due to fatigue. -LG Pt limited due to impaired cognition. Unable to attempt ambulation this session due to pt's lethargy and inability to consistently follow commands. Demonstrated impulsivity as he sat back into recliner unexpectedly after therapist cue pt to remain standing with UE support on ww. -LG Assessment Prognosis Good -LG Good -LG Problem List Gait deviations;Decreased strength;Decreased endurance;Impaired balance;Decreased mobility;Decreased cognition;Decreased safety awareness -LG Gait deviations;Decreased strength;Decreasedendurance;Impaired balance;Decreased mobility;Decreased cognition;Decreased safety awareness -LG Plan Plan Continue with current plan;If this is the last note, consider this the discharge summary -LG Continue with current plan;If this is the last note, consider this the discharge summary -LG Recommendation/Plan PT Recommendation/Plan Intermediate Facility -LG Intermediate Facility -LG PT Frequency 3-5x/wk -LG 3-5x/wk -LG Treatment/Interventions Balance Training;Functional activity;Functional transfer training;Therapeutic activity;Transfer training;Gait training;Therapeutic exercise -LG Balance Training;Functional activity;Functional transfer training;Therapeutic activity;Transfer training -LG PT Equipment Recommended Wheeled walker -LG Wheeled walker -LG Progress Slow progress, cognitive deficits -LG Slow progress, cognitive deficits -LG User Perdomo (r) = Recorded By, (t) = Taken By, (c) = Cosigned By Initials Name Effective Dates LG Saba Knight, PT 08/23/21 - PT Notes 10/16/2021 3:14 PM Progress Notes signed by Saba Knight, PT , HYDROGRAPHIC SURVEYOR Eval and Treat Last 72 Hours HYDROGRAPHIC SURVEYOR Evaluation No documentation. HYDROGRAPHIC SURVEYOR Treatment No documentation. Clinical Swallow Study No documentation. HYDROGRAPHIC SURVEYOR Notes Notes from 10/15/21 through 10/17/21 No notes of this type exist for this encounter. * Plan of Care - Wellington Delgado MSW - 10/17/2021 12:18 PM CDT No accepting facility at this time. AMARJIT followed up with pending facilities. Addendum: [facility]/Mauro requested to do on-site assessment. It is scheduled for tomorrow 10/18 morning. AMARJIT sent Epic secure chat to KAL, RN, and Dr. Gao. AMARJIT sent additional referrals. * Plan of Care - Vy Vasquez RN - 10/17/2021 10:28 AM CDT Problem: Health Behavior: Goal: Understanding of discharge needs will improve Outcome: Progressing Problem: Activity: Goal: Mobility will improve Outcome: Progressing Problem: Lack of Knowledge: Goal: [...] improve to fullest extent possible Outcome: Progressing Problem: Lack of Knowledge: Goal: Ability to state ways to decrease the risk of falls will improve Outcome: Progressing Goals: Clinical Goals for the Shift: vss, turns, rest, comfort, safety Summary: patient denies any discomfort at this time. VSS. Patient's medications given with applesauce and tolerated. Virtual sitter is on in the room. Patient will be discharging to SNF, will find out if the virtual sitter needs to be removed. So far this shift the patient is not trying to get out of bed. * Plan of Care - Aniyah Berumen RN - 10/17/2021 4:04 AM CDT Problem: Health Behavior: Goal: Understanding of discharge needs will improve Outcome: Progressing Problem: Activity: Goal: Mobility will improve Outcome: Progressing Problem: Lack of Knowledge: Goal: Understanding of ways to prevent future skin breakdown will improve Outcome: Progressing Goal: Ability to identify appropriate dietary choices will improve Outcome: Progressing Problem: Lack of Knowledge: Goal: Ability to identify appropriate dietary choices [...] improve to fullest extent possible Outcome: Progressing Problem: Lack of Knowledge: Goal: Ability to state ways to decrease the risk of falls will improve Outcome: Progressing Problem: Safety: Goal: Will remain free from falls Outcome: Progressing Goal: Will remain free from injury from falls Outcome: Progressing Goal: Will remain free from falls and injury in home environment Outcome: Progressing Problem: Respiratory: Goal: Ability to maintain a clear airway will improve Outcome: Progressing Goal: Complications related to the disease process, condition or treatment will be avoided or minimized Outcome: Progressing Problem: Medication: Goal: Satisfaction with pain management regimen will improve Outcome: Progressing Problem: Sensory: Goal: Ability to identify factors that increase the pain will improve Outcome: Progressing Goal: Pain level will decrease Outcome: Progressing Goals: Clinical Goals for the Shift: vss, turns, rest, comfort, safety Summary: VSS on RA; pt is oriented to self only; pt is sometimes able to carry a conversation, but other times has nonsensical speech; pt has intermittent cough and coarse lung sounds; incision sightis open to air and clean, dry, intact; pt is repositioned every 2 hours. Virtual sitter continued; pt began to get restless and removed gown and linens, after attempt to lower room temperature did not help, pt administered norco for pain with relief. Pt takes medications crushed in applesauce. Pt sleeps intermittently through the night and remains free from falls. * Plan of Care - Aby Hsieh RN - 10/16/2021 2:02 PM CDT Goals: Clinical Goals for the Shift: vss, monitor labs, rest and comfort Summary: Pt vss, A&O1, on RA. No complaints of pain this shift. Pt resting comfortably in bed for most of shift. Free from falls this shift, call light within reach. Waiting for placement. Will update as needed. * Plan of Care - Wellington Delgado MSW - 10/16/2021 1:22 PM CDT SW followed up with pending SNFs, sent updated notes. Pending facility responses. * Plan of Care - Julieta Ahuja RN - 10/16/2021 8:00 AM CDT Problem: Health Behavior: Goal: Understanding of discharge needs will improve Outcome: Progressing Problem: Activity: Goal: Mobility will improve Outcome: Progressing Problem: Lack of Knowledge: Goal: [...] improve to fullest extent possible Outcome: Progressing Problem: Lack of Knowledge: Goal: Ability to state ways to decrease the risk of falls will improve Outcome: Progressing Problem: Safety: Goal: Will remain free from falls Outcome: Progressing Goal: Will remain free from injury from falls Outcome: Progressing Goal: Will remain free from falls and injury in home environment Outcome: Progressing Problem: Respiratory: Goal: Ability to maintain a clear airway will improve Outcome: Progressing Goal: Complications related to the disease process, condition or treatment will be avoided or minimized Outcome: Progressing Problem: Medication: Goal: Satisfaction with pain management regimen will improve Outcome: Progressing Problem: Sensory: Goal: Ability to identify factors that increase the pain will improve Outcome: Progressing Goal: Pain level will decrease Outcome: Progressing Goals: Clinical Goals for the Shift: RN Daily Goals: 1.Vitals WNL 2.Free of injury 3.Labs WNL 4.Nutrition 5. Comfort & safety Summary: Awake & alert. Oriented to self. Follows commands. HENSNO with generalized weakness. Vitals WNL. Afebrile. Deneies SOB or pain. Covid precautions/ Isolation maintained. Labs WNL. Encourage nutrition & mobility. Planned discharge to [facility] when bed available. Continue Virtual sitter maintained for patient safety. * Plan of Care - Carolina Alva RN - 10/15/2021 5:01 AM CDT Problem: Health Behavior: Goal: Understanding of discharge needs will improve Outcome: Progressing Problem: Activity: Goal: Mobility will improve Outcome: Progressing Problem: Lack of Knowledge: Goal: [...] improve to fullest extent possible Outcome: Progressing Problem: Lack of Knowledge: Goal: Ability to state ways to decrease the risk of falls will improve Outcome: Progressing Problem: Safety: Goal: Will remain free from falls Outcome: Progressing Goal: Will remain free from injury from falls Outcome: Progressing Goal: Will remain free from falls and injury in home environment Outcome: Progressing Problem: Respiratory: Goal: Ability to maintain a clear airway will improve Outcome: Progressing Goal: Complications related to the disease process, condition or treatment will be avoided or minimized Outcome: Progressing Problem: Medication: Goal: Satisfaction with pain management regimen will improve Outcome: Progressing Problem: Sensory: Goal: Ability to identify factors that increase the pain will improve Outcome: Progressing Goal: Pain level will decrease Outcome: Progressing Goals: Clinical Goals for the Shift: vss, pain control, safety, keep pt free from falls/injuries, promote rest and comfort Summary: vss, pt had no c/o pain, condom cath placed, pt answered orientation questions was a&ox3, pt remained free from falls/injuries, rest and comfort promoted. Will continue to monitor. * Plan of Care - Renetta Ledbetter RN - 10/14/2021 6:10 PM CDT Problem: Health Behavior: Goal: Understanding of discharge needs will improve Outcome: Progressing Problem: Activity: Goal: Mobility will improve Outcome: Progressing Problem: Lack of Knowledge: Goal: [...] improve to fullest extent possible Outcome: Progressing Problem: Lack of Knowledge: Goal: Ability to state ways to decrease the risk of falls will improve Outcome: Progressing Problem: Safety: Goal: Will remain free from falls Outcome: Progressing Goal: Will remain free from injury from falls Outcome: Progressing Goal: Will remain free from falls and injury in home environment Outcome: Progressing Problem: Respiratory: Goal: Ability to maintain a clear airway will improve Outcome: Progressing Goal: Complications related to the disease process, condition or treatment will be avoided or minimized Outcome: Progressing Problem: Sensory: Goal: Ability to identify factors that increase the pain will improve Outcome: Progressing Goal: Pain level will decrease Outcome: Progressing Goals: Clinical Goals for the Shift: monitor VS, rest, safety Summary: AO to self, VSS, RA, pain managed with NORCO, remained free from falls, call light at the bedside, will continue to monitor. Renetta Ledbetter, RN * Plan of Care - Jaja Das MSW - 10/14/2021 9:16 AM CDT Weekend follow up - left message for Anastacio [phone] from [facility] to check on bed availability this weekend. Awaiting return call. * Plan of Care - Melissa Germain RN - 10/14/2021 7:22 AM CDT Problem: Health Behavior: Goal: Understanding of discharge needs will improve Outcome: Not Progressing Problem: Activity: Goal: Mobility [...] improve to fullest extent possible Outcome: Progressing Problem: Lack of Knowledge: Goal: Ability to state ways to decrease the risk of falls will improve Outcome: Not Progressing Problem: Safety: Goal: Will remain free from falls Outcome: Progressing Goal: Will remain free from injury from falls Outcome: Progressing Goal: Will remain free from falls and injury in home environment Outcome: Progressing Problem: Respiratory: Goal: Ability to maintain a clear airway will improve Outcome: Progressing Goal: Complications related to the disease process, condition or treatment will be avoided or minimized Outcome: Not Progressing Problem: Respiratory: Goal: Ability to maintain a clear airway will improve Outcome: Progressing Goal: Complications related to the disease process, condition or treatment will be avoided or minimized Outcome: Not Progressing Problem: Medication: Goal: Satisfaction with pain management regimen will improve Outcome: Progressing Problem: Sensory: Goal: Ability to identify factors that increase the pain will improve Outcome: Not Progressing Goal: Pain level will decrease Outcome: Progressing Goals: Clinical Goals for the Shift: Stable VS and labs, pain and wound management, constant observation via Virtual sitter, monitor resp status, patient to remain free of falls. Summary: VSS, continue pain and wound management, continue constant observation via Virtual sitter,continue to monitor resp status, no complaints over night, slept well. Patient remains free of falls. * Plan of Care - Elena Cowan RN - 10/13/2021 5:11 PM CDT Problem: Health Behavior: Goal: Understanding of discharge needs will improve Outcome: Progressing Problem: Activity: Goal: Mobility will improve Outcome: Progressing Problem: Lack of Knowledge: Goal: [...] improve to fullest extent possible Outcome: Progressing Problem: Lack of Knowledge: Goal: Ability to state ways to decrease the risk of falls will improve Outcome: Progressing Problem: Safety: Goal: Will remain free from falls Outcome: Progressing Goal: Will remain free from injury from falls Outcome: Progressing Goal: Will remain free from falls and injury in home environment Outcome: Progressing Problem: Respiratory: Goal: Ability to maintain a clear airway will improve Outcome: Progressing Goal: Complications related to the disease process, condition or treatment will be avoided or minimized Outcome: Progressing Problem: Medication: Goal: Satisfaction with pain management regimen will improve Outcome: Progressing Problem: Sensory: Goal: Ability to identify factors that increase the pain will improve Outcome: Progressing Goal: Pain level will decrease Outcome: Progressing Goals: Clinical Goals for the Shift: vss, rest, comfort, safety, remain free from falls, Q2 turns, reorient as needed Summary: pt A&Ox1. VSS on RA. Pt had multiple soft BM today. No complaints of pain. Pt repositioned as tolerated. Pt ate 100% of breakfast. He refused lunch. Virtual sitter in place, pt restless at times this afternoon. * ECIN Note - Danny Wellington Lynn, ROPEMAN - 10/13/2021 1:16 PM CDT Images from the original note were not included. Patient Information: Comprehensive Nursing Documentation Attending Provider: Saqib Currie DO Allergies: Penicillins Isolation: Airborne, Contact Infection: MDR gram neg/ESBL (12/21/19), COVID19 (10/04/21) Code Status: FULL Advance Care Planning Activity Ht: 180.3 cm (5' 11 ) Wt: 80.6 kg (177 lb 11.1 oz) Admission Cmt: None Principal Problem: Sepsis due to COVID-19 ([facility]) ([facility]) [U07.1,A41.89] Intake/Output 10/10/21 0700 - 10/11/21 0659 10/11/21 0700 - 10/12/21 0659 10/12/21 0700 - 10/13/21 0659 Total Total 2258-7156 6416-2627 0833-2315 Total Intake (ml) 520 960 -- -- -- -- Output (ml) -- 125 -- 700 1000 1700 Net (ml) 520 835 -- -700 -1000 -1700 Patient Lines/Drains/Airways Status Active Airway / Central venous catheter / Drain / Epidural cathether / Intraosseous line / Peripherally inserted central catheter / Peripheral intravenous line / Arterial line Name Placement date Placement time Site Days External Urinary Catheter -- -- -- -- Peripheral IV 10/08/21 18 G Left Wrist 10/08/21 1058 Wrist 5 Patient Lines/Drains/Airways Status Active Wound / Pressure ulcer / Johnson / Negative Pressure Wound Wound 06/27/21 MASD (Moisture associated skin damage) Perineum , buttocks Date First Assessed 06/27/21 Site Perineum Time First Assessed 1425 Days 107 Wound Type: MASD (Moisture associated skin damage) Wound Description (Comments): , buttocks Hardin Fall Risk Flowsheet Row Most Recent Value Prior Fall Event (Autopopulated from EMR) 10/07/2021 (25 points) ............filed at 10/13/2021751 History of Falling 25 ............filed at 10/13/2021751 Secondary Diagnosis 15 ............filed at 10/13/2021751 Ambulatory Aids 0 ............filed at 10/13/2021751 Intravenous Therapy/Heparin/Saline Lock 20 ............filed at 10/13/2021751 Gait/Transferring 10 ............filed at 10/13/2021751 Mental Status 15 ............filed at 10/13/2021751 Hardin Fall Risk Score 85 ............filed at 10/13/2021751 Vital Signs Report 10/12 0710/13 0659 10/13 0710/13 1316 Most Recent Temp (??C) 36.5 - 37 36.7 36.7 (98.1) 10/13 0845 Pulse 80 - 107 96 96 10/13 0845 Resp 16 - 18 18 18 10/13 0845 SpO2 (%) 95 - 100 95 95 10/13 0845 BP 151/96 - 168/105 145/99 145/99 10/13 0845 MAP (mmHg) 113 - 117 115 115 10/13 0845 Non Violent Restraint Flowsheet Row Most Recent Value Restraint Alternative Less Restrictive Alternative Low Bed, Bed Exit Alarm, Increased frequency of nursing rounds filed at 10/13/2021 075 Restraint Reason Restraint Type (NV) Every 2 Hours Default Flowsheet Data (most recent) Endurance Tests No documentation. Default Flowsheet Data (most recent) Balance Tests - 10/06/21 0959 Tinetti Sitting Balance 1 Arises 1 Attempts to Arise 2 Immediate Standing Balance (First 5 Seconds) 1 Standing Balance 1 Nudged 1 Eyes Closed 1 Turned 360 Degrees: Steadiness 0 Turned 360 Degrees: Continuity of Steps 0 Sitting Down 1 Balance Score 9 Initiation of Gait 1 Step Height: R Swing Foot 1 Step Length: R Swing Foot 1 Step Height: L Swing Foot 1 Step Length: L Swing Foot 1 Step Symmetry 0 Step Continuity 0 Path 1 Trunk 0 Walking Time 1 Gait Score 7 Total Score 16 Nursing Nutrition Feeding Level of Assistance 10/13 075 Needs assist;Needs set up 10/12 1922 Needs assist;Needs set up 10/12 0735 Needs set up;Needs assist 10/11 1950 Needs assist;Needs set up 10/11 1042 Needs assist;Needs set up 10/11 09 Needs set up;Needs assist 10/11 07 Able to feed self 10/11 1999 Needs assist 10/10 170 Needs assist 10/10 1340 Needs assist Appetite 10/10 1340 Good Nursing Mobility Activity 10/13 1020 Turn 10/13 0752 Sleeping 10/13 0551 Sleeping 10/13 0420 Sleeping 10/13 0407 Turn;Sleeping 10/13 0303 Sleeping 10/13 0210 Sleeping 10/13 0200 Turn 10/13 0015 Sleeping 10/12 2220 Sleeping 10/12 1922 Resting in bed 10/12 1809 Sleeping 10/12 1640 Resting in bed;Turn 10/12 1514 Resting in bed 10/12 1405 Resting in bed 10/12 1248 Resting in bed 10/12 1055 Resting in bed 10/12 0848 Sleeping 10/12 0735 Sleeping 10/12 0603 Turn 10/12 0415 Turn 10/12 0213 Sleeping 10/12 0015 Sleeping / 2208 Sleeping / 1950 Sleeping / 1800 Resting in bed 10/11 1700 Sleeping /06 1600 Chair /06 1500 Chair / 1434 Chair / 1200 Chair / 1055 Chair 07/ 1042 Chair 07/ 0900 Resting in bed 10/11 0802 Sleeping 07/06 0700 Sleeping 07/06 0500 Sleeping 07/06 0425 Sleeping 07/06 0400 Sleeping 07/06 0300 Sleeping 07/ 0213 Sleeping / 0100 Sleeping / 0019 Sleeping 10/10 2326 Resting in bed 10/10 2210 Resting in bed 10/11 1999 Resting in bed 10/10 170 Resting in bed 10/10 1340 Being fed Level of Assistance 10/13 075 Maximum assist, patient does 25-49% 10/13 0407 Maximum assist, patient does 25-49% 10/12 1922 Maximum assist, patient does 25-49% 10/12 1514 Maximum assist, patient does 25-49% 10/12 0735 Maximum assist, patient does 25-49% 10/11 1950 Maximum assist, patient does 25-49% 10/11 1700 Maximum assist, patient does 25-49% 10/11 0900 Maximum assist, patient does 25-49% 10/11 07 Maximum assist, patient does 25-49% 10/10 2000 Maximum assist, patient does 25-49% 10/10 1700 Maximum assist, patient does 25-49% 10/10 1340 Maximum assist, patient does 25-49% Assistive Device 10/13 075 Mechanical lift 10/12 192 Mechanical lift 10/12 734 Mechanical lift 10/11 1950 Mechanical lift 10/11 09 Mechanical lift 10/11 07 Mechanical lift 10/10 2000 Gait belt;Walker 10/10 1700 Gait belt;Walker Repositioned 10/13 1020 Left side;Pillow support 10/13 0752 Supine 10/13 0600 Right side 10/13 0407 Left side;Pillow support 10/13 0200 Right side;Pillow support 10/13 0055 Supine 10/12 1922 Semi Bird's 10/12 1514 Semi Bird's 10/12 1200 Left side 10/12 1100 Left side 10/12 0735 Pillow support 10/12 0603 Left side;Pillow support 10/12 0415 Right side;Pillow support 10/12 0213 Supine 10/11 1950 Right side;Pillow support 10/11 1700 Right side;Pillow support 10/11 1500 Up in chair;Pillow support 10/11 1434 Refused by patient/family;Up in chair 10/11 1200 Up in chair 10/11 1042 Up in chair 10/11 0900 Semi Bird's 10/11 0700 Turns self;Supine;Semi Bird's;Pillow support 10/11 0500 Turns self 10/11 0400 Turns self 10/11 0300 Turns self 10/11 0100 Turns self 10/10 2326 Left side 10/10 2100 Supine 10/10 2000 Right side 10/10 1700 Right side Positioning Frequency 10/13 1020 Every 2 hours 10/13 0752 Every 2 hours 10/13 0600 Every 2 hours 10/13 0407 Every 2 hours 10/13 0200 Every 2 hours 07/07 1922 Every 2 hours 07/07 1514 Every 2 hours 07/07 1200 Every 2 hours 07/07 0735 Every 2 hours 07/07 0213 Every 2 hours /06 1950 Every 2 hours 07/06 1700 Every 2 hours 07/06 1500 Every 2 hours 07/06 1200 Every 2 hours 07/06 1042 Every 2 hours 07/06 0900 Every 2 hours 07/06 0700 Every 2 hours /06 0500 Able to turn self 10/11 0400 Able to turn self 10/11 0300 Able to turn self 10/11 0100 Able to turn self 10/10 2326 Every 2 hours 10/10 2100 Every 2 hours 10/10 2000 Every 2 hours / 1700 Every 2 hours Head of Bed Elevated 10/13 1020 HOB 30 10/13 0752 HOB 30 10/13 0407 HOB 30 10/12 1922 HOB 30 / 1514 HOB 30 / 1200 HOB 30 10/12 0735 HOB 30 10/12 0213 HOB 30 10/11 1950 HOB 30 10/11 1700 HOB 30 / 1500 HOB 60 10/11 1200 HOB 60 / 1042 HOB 60 / 0900 HOB 30 / 0700 HOB 30 / 0500 Self regulated 10/11 0400 Self regulated 10/11 0100 Self regulated 10/10 2326 HOB less than 20 10/10 2100 HOB 30 10/10 2000 HOB 30 Heels/Feet 10/13 0407 Foot of bed elevated 10/12 1922 Foot of bed elevated 07 1514 Foot of bed elevated 10/12 0213 Foot of bed elevated 10/11 1950 Foot of bed elevated 10/11 0500 Foot of bed elevated 10/11 0400 Foot of bed elevated 10/11 0300 Foot of bed elevated / 0100 Foot of bed elevated / 2100 Foot of bed elevated 10/10 2000 Foot of bed elevated Range of Motion 10/13 0752 Active;All extremities 10/13 406 Active;All extremities 10/12 1921 Active;All extremities 10/11 1949 Active;All extremities 10/11 1999 Active;All extremities Type of Device 10/12 1921 Mechanical compression 10/12 734 Mechanical compression 10/11 104 Mechanical compression 10/11 699 Mechanical compression 10/11 1999 -- (Comment: carissa) 10/10 1958 Mechanical compression Mechanical Compression Site 10/13 1999 Bilateral 10/12 192 Bilateral 10/12 0635 Bilateral 10/11 194 Bilateral 10/11 104 Bilateral 10/11 08 Bilateral 10/11 07 Bilateral 10/10 1958 Bilateral Mechanical Compression Type 10/13 1999 IPC/SCD 10/12 192 IPC/SCD 10/12 734 IPC/SCD 10/11 194 IPC/SCD 10/11 1042 IPC/SCD 10/11 08 IPC/SCD 10/11 07 IPC/SCD 10/10 1958 IPC/SCD Mechanical Compression Status 10/13 1999 On 10/12 192 On 10/12 734 On 10/11 194 On 10/11 1042 On 10/11 08 Off 10/11 699 Off 10/10 1958 Off Default Flowsheet Data (last 24 hours) Sitter Documentation Row Name 10/13/21 0752 10/12/21 2300 10/12/21 192 Sitter Documentation Sitter Continued Continued Continued Sitter Type Continuous Virtual Patient Observation Continuous Virtual Patient Observation Medical/Safety RN Safety Check No unsafe behaviors observed, safe environment maintained -- No unsafe behaviors observed, safe environment maintained Row Name 10/12/21 1640 10/12/21 1405 Sitter Documentation Sitter Continued Continued Sitter Type Medical/Safety Medical/Safety RN Safety Check No unsafe behaviors observed, safe environment maintained No unsafe behaviors observed, safe environment maintained , Meds and Admin Active Only All Meds/Most Recent Administrations All Meds/Most Recent Administrations sodium chloride 0.9% bolus 1,000 mL [[id number]] Ordering Provider: Gian Jackson MD Status: Completed (Past End Date/Time) Ordered On: 10/04/21 141 Starts/Ends: 10/04/21 1413 - 10/04/21 1545 Ordered Dose (Remaining/Total): 1,000 mL (0/1) Route: intravenous Frequency: Once Ordered Rate/Order Duration: 1,000 mL/hr / 1 Hours Line Med Link Info Comment Peripheral IV 07/03/21 20 G Anterior;Left Forearm 10/04/21 1412 by Lakia Youngblood, RN -- Timestamps Action Dose / Rate / Duration Route Other Information 10/04/21 141 New Bag 1,000 mL 1,000 mL/hr 1 Hours intravenous Performed by: Lakia Youngblood RN sodium chloride 0.9% bolus 1,400 mL [[id number]] Ordering Provider: Alysha Ramirez MD Status: Completed (Past End Date/Time) Ordered On: 10/04/21 141 Starts/Ends: 10/04/21 141 - 10/04/21 1619 Ordered Dose (Remaining/Total): 1,400 mL (0/1) Route: intravenous Frequency: Once Ordered Rate/Order Duration: 1,400 mL/hr / 1 Hours Timestamps Action Dose / Rate / Duration Route Other Information 10/04/21 1501 New Bag 1,400 mL 1,400 mL/hr 1 Hours intravenous Performed by: Esau Wong RN dexAMETHasone (DECADRON) 4 mg/mL injection 6 mg [[id number]] Ordering Provider: Alysha Ramirez MD Status: Completed (Past End Date/Time) Ordered On: 10/04/211711 Starts/Ends: 10/04/21 171 - 10/04/21 1801 Ordered Dose (Remaining/Total): 6 mg (0/1) Route: intravenous Frequency: Once Ordered Rate/Order Duration: -- / 2 Minutes Timestamps Action Dose / Duration Route Other Information 10/04/21 1759 Given 6 mg 2 Minutes intravenous Performed by: Esau Wong RN Scanned Package: 20802-120-67 folic acid (FOLVITE) tablet 1 mg [[id number]] Ordering Provider: Miguel Flores MD Status: Dispensed Ordered On: 10/05/2120 Start: 10/05/21899 Ordered Dose (Remaining/Total): 1 mg (--/--) Route: oral Frequency: Daily Ordered Rate/Order Duration: -- / -- Timestamps Action Dose Route Other Information 10/13/21 0947 Given 1 mg oral Performed by: Elena Cowan RN Scanned Package: 15222-711-[address] (PROTONIX) extended release tablet 40 mg [[id number]] Ordering Provider: Miguel Flores MD Status: Dispensed Ordered On: 10/05/2120 Start: 10/05/21899 Ordered Dose (Remaining/Total): 40 mg (--/--) Route: oral Frequency: Daily Ordered Rate/Order Duration: -- / -- Admin Instructions: Do not crush, chew, cut, dissolve, open or otherwise manipulate tablet/capsule. Timestamps Action Dose Route Other Information 10/13/21946 Given 40 mg oral Performed by: Elena Cowan RN Scanned Package: 07666-471-28 pravastatin (PRAVACHOL) tablet 40 mg [[id number]] Ordering Provider: Miguel Flores MD Status: Dispensed Ordered On: 10/05/2120 Start: 10/05/21899 Ordered Dose (Remaining/Total): 40 mg (--/--) Route: oral Frequency: Daily Ordered Rate/Order Duration: -- / -- Timestamps Action Dose Route Other Information 10/13/21946 Given 40 mg oral Performed by: Elena Cowan RN Scanned Package: 97089-616-72 thiamine (VITAMIN B1) tablet 100 mg [[id number]] Ordering Provider: Miguel Flores MD Status: Dispensed Ordered On: 10/05/2120 Start: 10/05/21899 Ordered Dose (Remaining/Total): 100 mg (--/--) Route: oral Frequency: Every morning Ordered Rate/Order Duration: -- / -- Timestamps Action Dose Route Other Information 10/13/21946 Given 100 mg oral Performed by: Elena Cowan RN Scanned Package: [id number] ondansetron ODT (ZOFRAN-ODT) disintegrating tablet 4 mg [[id number]] Ordering Provider: Miguel Flores MD Status: Dispensed Ordered On: 10/05/2120 Start: 10/05/2120 Ordered Dose (Remaining/Total): 4 mg (--/--) Route: oral Frequency: Every 6 hours PRN Ordered Rate/Order Duration: -- / -- Timestamps Action Dose Route Other Information 10/07/21 1319 Given 4 mg oral Performed by: Aby Hsieh RN Scanned Package: 59934-904-71 ondansetron (ZOFRAN) injection 4 mg [[id number]] Ordering Provider: Miguel Flores MD Status: Verified Ordered On: 10/05/2120 Start: 10/05/2120 Ordered Dose (Remaining/Total): 4 mg (--/--) Route: intravenous Frequency: Every 6 hours PRN Ordered Rate/Order Duration: -- / 2 Minutes (No admins scheduled or recorded for this medication) acetaminophen (TYLENOL) tablet 650 mg [[id number]] Ordering Provider: Miguel Flores MD Status: Dispensed Ordered On: 10/05/2120 Start: 10/05/2120 Ordered Dose (Remaining/Total): 650 mg (--/--) Route: oral Frequency: Every 4 hours PRN Ordered Rate/Order Duration: -- / -- Timestamps Action Dose Route Other Information 10/09/21 1101 Given 650 mg oral Performed by: Renetta Ledbetter RN Scanned Package: 6660-0617-66, 0490-8154-20 remdesivir (VEKLURY) 200 mg/290 mL in sodium chloride 0.9% infusion (premix) 200 mg [[id number]] Ordering Provider: Saqib Currie DO Status: Completed (Past End Date/Time) Ordered On: 10/04/211717 Starts/Ends: 10/04/211722 - 10/04/211909 Ordered Dose (Remaining/Total): 200 mg (0/1) Route: intravenous Frequency: Every 24 hours Ordered Rate/Order Duration: 290 mL/hr / 60 Minutes Admin Instructions: Do not shake or tube. Question Answer Comment [facility] appropriate use criteria for remdesivir are limited to the following below options. It is recommended that therapy for infections outside of these indications be discussed with infectious diseases, if available.: Laboratory- confirmed severe and/or critical COVID-19 -- Timestamps Action Dose / Rate / Duration Route Other Information 10/04/21 1800 New Bag 200 mg 290 mL/hr 60 Minutes intravenous Performed by: Esau Wong RN Scanned Package: [address]-4, 7464-3727-25 remdesivir (VEKLURY) 100 mg/270 mL in sodium chloride 0.9% infusion (premix) 100 mg [[id number]] Ordering Provider: Saqib Currie DO Status: Completed (Past End Date/Time) Ordered On: 10/04/21 1718 Starts/Ends: 10/05/21 1704 - 10/08/21 1739 Ordered Dose (Remaining/Total): 100 mg (0/4) Route: intravenous Frequency: Every 24 hours Ordered Rate/Order Duration: 270 mL/hr / 60 Minutes Admin Instructions: Do not shake or tube. Note to pharmacy: Double check timing upon verification Question Answer Comment [facility] appropriate use criteria for remdesivir are limited to the following below options. It is recommended that therapy for infections outside of these indications be discussed with infectious diseases, if available.: Laboratory- confirmed severe and/or critical COVID-19 -- Line Med Link Info Comment Peripheral IV 10/04/21 20 G Left Forearm 10/05/21 1603 by Jemma Spivey RN -- Timestamps Action Dose / Rate / Duration Route Other Information 10/08/21 1632 New Bag 100 mg 270 mL/hr 60 Minutes intravenous Performed by: Aby Hsieh RN Scanned Package: [address]-8, 8967-4653-49 potassium chloride ER (KLOR-CON) extended release tablet 20 mEq [[id number]] Ordering Provider: Elisa Oliva MD Status: Completed (Past End Date/Time) Ordered On: 10/06/21 1121 Starts/Ends: 10/06/21 1200 - 10/06/21 1217 Ordered Dose (Remaining/Total): 20 mEq (0/1) Route: oral Frequency: Once Ordered Rate/Order Duration: -- / -- Admin Instructions: Do not crush, chew, cut, dissolve, open or otherwise manipulate tablet/capsule. Timestamps Action Dose Route Other Information 10/06/21 1217 Given 20 mEq oral Performed by: Ken Hernández Scanned Package: 6398-7856-68 terazosin (HYTRIN) capsule 10 mg [[id number]] Ordering Provider: Miguel Flores MD Status: Dispensed Ordered On: 10/07/21 0643 Start: 10/07/21 2100 Ordered Dose (Remaining/Total): 10 mg (--/--) Route: oral Frequency: Nightly Ordered Rate/Order Duration: -- / -- Timestamps Action Dose Route Other Information 10/12/211958 Given 10 mg oral Performed by: Della Paniagua RN Scanned Package: 10033-164-72, 83584-872-66 metoprolol tartrate (LOPRESSOR) immediate release tablet 100 mg [[id number]] Ordering Provider: Miguel Flores MD Status: Dispensed Ordered On: 10/07/21 0643 Start: 10/07/21 0900 Ordered Dose (Remaining/Total): 100 mg (--/--) Route: oral Frequency: 2 times daily Ordered Rate/Order Duration: -- / -- Timestamps Action Dose Route Other Information 10/13/21 0948 Given 100 mg oral Performed by: Elena Cowan RN Scanned Package: 65617-081-45, 65936-238-72 potassium chloride ER (KLOR-CON) extended release tablet 30 mEq [[id number]] Ordering Provider: Elisa Oliva MD Status: Completed (Past End Date/Time) Ordered On: 10/07/21719 Starts/Ends: 10/07/21 0800 - 10/07/21 1146 Ordered Dose (Remaining/Total): 30 mEq (0/2) Route: oral Frequency: Every 4 hours Ordered Rate/Order Duration: -- / -- Admin Instructions: Total dose = 60 mEq Do not crush, chew, cut, dissolve, open or otherwise manipulate tablet/capsule. Timestamps Action Dose Route Other Information 10/07/21 1146 Given 30 mEq oral Performed by: Aby Hsieh RN Scanned Package: 8853-5408-55, 3905-1591-46 magnesium sulfate 2 g/50 mL in water (premix) 2 g [[id number]] Ordering Provider: Elisa Oliva MD Status: Dispensed (Past End Date/Time) Ordered On: 10/07/21 1058 Starts/Ends: 10/07/21 1130 - 10/08/21 1130 Ordered Dose (Remaining/Total): 2 g (1/1) Route: intravenous Frequency: Once Ordered Rate/Order Duration: -- / 60 Minutes Timestamps Action Duration Route Other Information 10/07/21 1248 Restarted 60 Minutes intravenous Performed by: Aby Hsieh RN ceFAZolin (ANCEF) 2,000 mg/20 mL in sterile water (premix) 2,000 mg [[id number]] Ordering Provider: Miguel Flores MD Status: Completed (Past End Date/Time) Ordered On: 10/08/21 1249 Starts/Ends: 10/08/21 1800 - 10/09/21 0242 Ordered Dose (Remaining/Total): 2,000 mg (0/2) Route: intravenous Frequency: Every 8 hours Ordered Rate/Order Duration: 400 mL/hr / 3 Minutes Admin Instructions: Beginning 8 hours after last edna-operative dose. Line Med Link Info Comment Peripheral IV 10/07/21 Right;Anterior Hand 10/08/21 1658 by Aby Hsieh RN -- Timestamps Action Dose / Rate / Duration Route Other Information 10/09/21 0239 Given 2,000 mg 400 mL/hr 3 Minutes intravenous Performed by: Hamida Shirley RN HYDROcodone-acetaminophen (NORCO) 5-325 mg per tablet 1 tablet [[id number]] Ordering Provider: Miguel Flores MD Status: Dispensed Ordered On: 10/08/21 124 Start: 10/08/21 1249 Ordered Dose (Remaining/Total): 1 tablet (--/--) Route: oral Frequency: Every 4 hours PRN Ordered Rate/Order Duration: -- / -- Admin Instructions: May repeat in 1 hour if pain is uncontrolled or increasing. Max 2 doses within 1 dosing interval. Timestamps Action Dose Route Other Information 10/10/21 2329 Given 1 tablet oral Performed by: Della Paniagua RN Scanned Package: [id number] enoxaparin (LOVENOX) syringe 40 mg [[id number]] Ordering Provider: Saqib Currie DO Status: Dispensed Ordered On: 10/10/21 1431 Start: 10/10/21 2100 Ordered Dose (Remaining/Total): 40 mg (--/--) Route: subcutaneous Frequency: Daily (for enoxaparin) Ordered Rate/Order Duration: -- / -- Timestamps Action Dose Route / Site Other Information 10/12/211999 Given 40 mg subcutaneous Left Lower Abdomen Performed by: Della Paniagua RN Scanned Package: 72792-307-82 aspirin enteric coated tablet 81 mg [[id number]] Ordering Provider: Saqib Currie DO Status: Dispensed Ordered On: 10/10/21 1431 Start: 10/11/21 0900 Ordered Dose (Remaining/Total): 81 mg (--/--) Route: oral Frequency: Daily Ordered Rate/Order Duration: -- / -- Admin Instructions: Do not crush, chew, cut, dissolve, open or otherwise manipulate tablet/capsule. Timestamps Action Dose Route Other Information 10/13/21 0947 Given 81 mg oral Performed by: Elena Cowan RN Scanned Package: [id number] * ECIN Note - Wellington Delgado MSW - 10/13/2021 1:15 PM CDT Images from the original note were not included. Patient Information: OT Eval and Treat Last 72 Hours OT Evaluation No documentation. OT Treatment Row Name 10/11/21 0937 10/06/21 1429 Session Type Treatment -CS Treatment -LS OT Received On 10/11/21 -CS 10/06/21 -LS Safe Environment Arm Band Checked;Chair Alarm placed and activated;Call Light within Reach;NotifiedRN;Patient found in Supine;Overbed Table within Reach -CS Arm Band Checked;Bed Alarm placed and activated;Chair Alarm placed and activated;Call Light within Reach;Notified RN -LS Subjective Agreeable to Therapy -CS Agreeable to Therapy -LS Family/Caregiver Present No -CS No -LS Precautions Bed/Chair Alarm;Fall risk -CS Bed/Chair Alarm;Fall risk;Hearing -LS Weight Bearing Restrictions Yes -CS -- RLE Weight Bearing WBAT -CS -- Precaution Comments -- Pt has sitter in room d/t confusion and pt being a high fall risk. -LS Pain Assessment -- No/denies pain -LS Pain Score -- 0 - No pain -LS Clinical Progression -- Not changed -LS Breathing 0 -CS -- Negative Vocalization 1 -CS -- Facial Expression 0 -CS -- Body Language 0 -CS -- Consolability 0 -CS -- PAINAD Score 1 -CS -- Feeding: Where assessed Sitting;Chair -CS -- Feeding: Level of assistance Minimum Assist -CS -- Feeding: Assistance with Scooping food;Beverage management;Cutting food;Sequencing -CS -- Grooming: Where assessed Standing at sink -CS Standing at sink -LS Grooming: Level of assistance Moderate Assist -CS Moderate Assist -LS Grooming: Assistance with Teeth care;Increased time to complete;Standing with assistive device;Safety -CS Standing with assistive device;Teeth care;Manipulation of containers;Appropriate use of ADL items;Attending to task Pt unable to find toothbrush or cut on sink ledge. Pt req. minimal assist for standing d/t poor balance as he loses his balance in multiple directions. -LS Bathing: Where assessed Sitting;Chair sponge bath -CS -- Bathing: Level of assistance Moderate Assist -CS -- Bathing: Assistance with Increased time to complete ;Right upper leg;Left upper leg;Right lower legincluding foot;Left lower leg including foot;Sequencing;Safety;Attending to task -CS -- LE Dressing: Where assessed Sitting;Chair -CS -- LE Dressing: Level of assistance Maximum Assist -CS Maximum Assist -LS LE Dressing: Assistance with Don/doff R sock;Don/doff L sock -CS -- Pt does not complete with OT cuing. -LS Toileting: Equipment utilized -- -- Upon arrival pt had been incontinent while standing of urine. Max assist for clean up. - Bed Mobility Comments 1 Supine>sit Mod A. Able to sit EOB CGA with UE support, - CS NA- pt is up in chair upon arrival. - Trials/Comments 1 Sit>stand from EOB to WW Mod A. Mod A for stand pivot transfer to recliner. Sit>stand from recliner to WW Mod A. Mod A for functional mobility in room with use of WW and closechair follow. Returned to recliner Mod A. Pt requires cueing throughout for proper use of WW, advancing LEs, reaching back for transfer surface, and slowed, controlled descent. -CS Sit <> standminimal assist with cues for safe hand placement. Pt unsteady while standing at w/w. Pt ambulates 10 feet to sink with w/w and minimal assist. Ambulates 10 feet back to chair with w/w and minimal assist. Req. moderate assist for stand to sit d/t pt not reaching back for arm rests and having an uncontrolled descent. -LS Cognition Comments -- Pt is [place]. Also has limited vision. 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 -LS Safety Judgment Decreased awareness of need for assistance -CS Impulsive -LS Awareness of Errors Assistance required to identify errors made;Assistance required to correct errors made -CS Decreased awareness of errors -LS Insight Decreased awareness of deficits -CS Decreased awareness of deficits -LS Problem Solving Assistance required to identify errors made;Assistance required to generate solutions;Assistance required to implement solutions -CS Assistance required to implement solutions -LS Compliance/Behavior Easy to engage -CS Easy to engage Pt does not understand scope and benefits of OT. -LS Additional Activities Comments Pt requires several cues throughout session to open eyes, but participates easily in tasks. Pt cooperative and pleasant. Pt requires increased time to initiate tasks, but once started, finishes task with decreased assist. Decreased safety awareness demoed throughout session with several LOB/lateral and anterior leans that require Mod A to correct. -CS Attempted UE exercises but pt unable to follow commands. -LS Activity Tolerance Comments BP 132/90, HR 74-76, O2 92-94% on RA -CS Vitals after activity: O2 99% on RA, HR 108, BP 154/105- informed RN of increased BP. -LS Comments Left with call light in reach, needs met, chair alarm on, sitter present, SCDs in place. -CS -- Prognosis Good -CS Fair -LS Problem List -- Decreased cognition;Decreased endurance;Visual deficit;Decreased balance;Decreased functional mobility;Decreased ADL independence;Decreased IADL independence -LS Plan Continue with current plan;If this is the last note, consider this the discharge summary -CS Continue with current plan;If this is the last note, consider this the discharge summary -LS OT Recommendation Intermediate Facility -CS Intermediate Facility -LS Patient at high risk for -- Falls;Readmission;Injury due to decreased ability to care for self;Injury due to impaired cognition;Injury due to reduced functional status;Injury due to balance deficits -LS Recommend SNF due to Risk of injury at home;Unable to safely care for self in the home;Skilled therapy needed to address care for self in the home;Skilled therapy needed to address functional deficits -CS Risk of injury at home;Unable to safely care for self in the home;Skilled therapy needed to address functional deficits -LS OT Frequency -- 3-5x/wk -LS Progress Progressing toward goals -CS Slow progress, cognitive deficits -LS User Perdomo (r) = Recorded By, (t) = Taken By, (c) = Cosigned By Initials Name Effective Dates CS Zoey Alfred OT 08/17/21 - Diamond Mata OT 12/07/20 - OT Notes 10/11/2021 2:26 PM Progress Notes signed by Zoey Alfred OT , PT Eval and Treat Last 72 Hours PT Evaluation No documentation. PT TREATMENT (last 168 hours) PT Treatment Row Name 10/11/21 1444 PT Last Visit Session Type Treatment -LG Safe Environment Arm Band Checked;Chair Alarm placed and activated;Call Light within Reach;NotifiedRN;Patient found sitting in Chair;Overbed Table within Reach sitter present -LG Subjective Agreeable to Therapy -LG Subjective Comment Pt very lethargic with eyes closed most of session but verbalizes yes to work participate in therapy. -LG Additional Pertinent History The patient had unwitnessed fall here in the hospital on 10/07 and was found to have right femur fracture. He underwent right [employer] Intertan trochanteric nailing of intertrochanteric femur fracture 10/08. -LG Family/Caregiver Present No -LG Precautions Precautions Bed/Chair Alarm;Fall risk -LG Weight Bearing Restrictions Yes -LG RLE Weight Bearing WBAT -LG Precaution Comments Pt has sitter in room d/t confusion and pt being a high fall risk. -LG Activity Tolerance Activity Tolerance Comments Pre activity vitals: 94%, HR 73, 137/85 -LG Pain Assessment Pain Assessment 0-10 -LG Pain Score 0 - No pain -LG Clinical Progression Not changed -LG Cognition Cognition Comments Pt is [place] -LG Overall Cognitive Status Impaired -LG Arousal/Alertness Delayed responses to stimuli;Lethargic -LG Attention Span Attends with cues to redirect -LG Orientation Oriented to person -LG Following Commands Follows one step commands with repetition -LG Safety Judgment Decreased awareness of need for assistance -LG Awareness of Errors Assistance required to identify errors made;Assistance required to correct errors made -LG Insight Decreased awareness of deficits -LG Problem Solving Assistance required to identify errors made;Assistance required to generate solutions;Assistance required to implement solutions -LG Compliance/Behavior Easy to engage -LG Balance Balance Yes -LG Static Standing Balance Static Standing-Balance Support Bilateral upper extremity supported -LG Static Standing-Standing Surface Floor -LG Static Standing-Level of Assistance Contact guard;Minimum assistance -LG Static Standing-Comment/# of Minutes Pt stood at walker for approx 30 seconds before unexpectedly sitting back into recliner. CGA to Min Assist for safety and balance -LG Bed Mobility 1 Bed Mobility Comments 1 Pt received and ended session sitting in recliner. -LG Transfer 1 Transfer From 1 Sit -LG Transfer Type 1 To and from -LG Transfer to 1 Stand -LG Technique 1 Sit to stand;Stand to sit -LG Transfer Device 1 Wheeled walker -LG Transfer Level of Assistance 1 Minimum Assist -LG Trials/Comments 1 2 reps of sit to/from stand from recliner with ww and min assist for force production and safety. Therapist instructed pt to stay standing however after approx 30 seconds of standing pt unexpectedly sat back into chair. -LG Ambulation 1 Ambulation Comments 1 Unable to attempt ambulation this session due to pt's lethargy and inability to consistently follow commands. -LG Other Comments Other PT Comments Pt limited due to impaired cognition. Unable to attempt ambulation this session due to pt's lethargy and inability to consistently follow commands. Demonstrated impulsivity as he sat back into recliner unexpectedly after therapist cue pt to remain standing with UE support on ww. -L G Assessment Prognosis Good -LG Problem List Gait deviations;Decreased strength;Decreased endurance;Impaired balance;Decreased mobility;Decreased cognition;Decreased safety awareness -LG Plan Plan Continue with current plan;If this is the last note, consider this the discharge summary -LG Recommendation/Plan PT Recommendation/Plan Intermediate Facility -LG PT Frequency 3-5x/wk -LG Treatment/Interventions Balance Training;Functional activity;Functional transfer training;Therapeutic activity;Transfer training -LG PT Equipment Recommended Wheeled walker -LG Progress Slow progress, cognitive deficits -LG User Perdomo (r) = Recorded By, (t) = Taken By, (c) = Cosigned By Initials Name Effective Dates LG Saba Knight, PT 08/23/21 - PT Notes 10/11/2021 2:59 PM Progress Notes signed by Saba Knight, PT , HYDROGRAPHIC SURVEYOR Eval and Treat Last 72 Hours HYDROGRAPHIC SURVEYOR Evaluation No documentation. HYDROGRAPHIC SURVEYOR Treatment No documentation. Clinical Swallow Study No documentation. HYDROGRAPHIC SURVEYOR Notes Notes from 10/11/21 through 10/13/21 No notes of this type exist for this encounter. * Plan of Care - Wellington Delgado MSW - 10/13/2021 12:31 PM CDT AMARJIT followed up with all pending referrals and [facility] to determine if patient would be able to return. SW notified patient's DPOA/Raine Redman ([phone]). She adamantly declined patient returning to [facility]. AMARJIT sent additional referrals. * Plan of Care - Della Paniagua RN - 10/13/2021 3:10 AM CDT Problem: Health Behavior: Goal: Understanding of discharge needs will improve Outcome: Progressing Problem: Activity: Goal: Mobility will improve Outcome: Progressing Problem: Lack of Knowledge: Goal: [...] improve to fullest extent possible Outcome: Progressing Problem: Lack of Knowledge: Goal: Ability to state ways to decrease the risk of falls will improve Outcome: Progressing Problem: Safety: Goal: Will remain free from falls Outcome: Progressing Goal: Will remain free from injury from falls Outcome: Progressing Goal: Will remain free from falls and injury in home environment Outcome: Progressing Problem: Respiratory: Goal: Ability to maintain a clear airway will improve Outcome: Progressing Goal: Complications related to the disease process, condition or treatment will be avoided or minimized Outcome: Progressing Problem: Medication: Goal: Satisfaction with pain management regimen will improve Outcome: Progressing Problem: Sensory: Goal: Ability to identify factors that increase the pain will improve Outcome: Progressing Goal: Pain level will decrease Outcome: Progressing Goals: Clinical Goals for the Shift: VSS, Q2 turns, sitter at bedside, promote comfort/safety, free from falls Summary: Pt A&Ox1, on room air, and denies pain. Meds given in pudding. BP was elevated over night, hospitalist contacted and no new orders placed. Condom cath in place draining adequate output. Virtual sitter at bedside. Pt much more talkative and pleasant beginning of shift and then become agitated again throughout rest of night when touching/waking pt up. Pt slept majority of night, will continue to monitor. * Plan of Care - Elena Cowan RN - 10/12/2021 5:14 PM CDT Problem: Health Behavior: Goal: Understanding of discharge needs will improve Outcome: Progressing Problem: Activity: Goal: Mobility will improve Outcome: Progressing Problem: Lack of Knowledge: Goal: [...] improve to fullest extent possible Outcome: Progressing Problem: Lack of Knowledge: Goal: Ability to state ways to decrease the risk of falls will improve Outcome: Progressing Problem: Safety: Goal: Will remain free from falls Outcome: Progressing Goal: Will remain free from injury from falls Outcome: Progressing Goal: Will remain free from falls and injury in home environment Outcome: Progressing Problem: Respiratory: Goal: Ability to maintain a clear airway will improve Outcome: Progressing Goal: Complications related to the disease process, condition or treatment will be avoided or minimized Outcome: Progressing Problem: Medication: Goal: Satisfaction with pain management regimen will improve Outcome: Progressing Problem: Sensory: Goal: Ability to identify factors that increase the pain will improve Outcome: Progressing Goal: Pain level will decrease Outcome: Progressing Goals: Clinical Goals for the Shift: vss, rest, comfort, safety, remain free from falls,sitter at bedside,reorient as needed, Q2 turns Summary: pt A&Ox1. BP elevated, due meds given and BP improved. All other VSS. No complaints ofpain. Pt repositioned as tolerated. Sitter at bedside. Pt redirected as needed. Remains free from falls. Low bed with mats in place. Awaiting placement. * Plan of Care - Wellington Delgado MSW - 10/12/2021 2:51 PM CDT AMARJIT followed up with accepting/pending SNFs to verify referral status. Per Lucien Singh [facility] is able to accommodate COVID (+) patients. SW left for [facility] to determine if they are able to accept patient return as COVID (+), requested she return call. * Plan of Care - Della Paniagua RN - 10/12/2021 3:10 AM CDT Problem: Health Behavior: Goal: Understanding of discharge needs will improve Outcome: Progressing Problem: Activity: Goal: Mobility will improve Outcome: Progressing Problem: Lack of Knowledge: Goal: [...] improve to fullest extent possible Outcome: Progressing Problem: Lack of Knowledge: Goal: Ability to state ways to decrease the risk of falls will improve Outcome: Progressing Problem: Safety: Goal: Will remain free from falls Outcome: Progressing Goal: Will remain free from injury from falls Outcome: Progressing Goal: Will remain free from falls and injury in home environment Outcome: Progressing Problem: Respiratory: Goal: Ability to maintain a clear airway will improve Outcome: Progressing Goal: Complications related to the disease process, condition or treatment will be avoided or minimized Outcome: Progressing Problem: Medication: Goal: Satisfaction with pain management regimen will improve Outcome: Progressing Problem: Sensory: Goal: Ability to identify factors that increase the pain will improve Outcome: Progressing Goal: Pain level will decrease Outcome: Progressing Goals: Clinical Goals for the Shift: vss, promote comfort/safety, sitter at bedside Summary: Pt A&Ox1, on room air, VSS, and denies pain. Sitter at bedside. Pt took meds well in apple sauce. Condom cath draining adequate output. Dressing on hip reinforced. Pt slept comfortably throughoutnight, will continue to monitor. * Plan of Care - Emerita Carolina RRT - 10/11/2021 8:38 PM CDT Problem: Respiratory: Goal: Ability to maintain a clear airway will improve Outcome: Not Progressing Goal: Complications related to the disease process, condition or treatment will be avoided or minimized Outcome: Not Progressing Patient has refused inhaler the past three days. Tonight, patient slapped it out of the RT's hands.Order is going to be D/C due to refusal and poor corporation. * Plan of Care - Aby Hsieh RN - 10/11/2021 4:07 PM CDT Goals: Clinical Goals for the Shift: vss, rest, comfort, safety, remain free from falls, sitter at bedside Summary: Transfer of care at 1530. This nurse agrees with previous nurse assessment. Pt vss, A&O4, on RA. No complaints of pain this shift. Pt resting comfortably in the chair for the rest of shift. Free from falls this shift, call light within reach. Will update as needed. Problem: Health Behavior: Goal: Understanding of discharge needs will improve Outcome: Progressing Problem: Activity: Goal: Mobility will improve Outcome: Progressing Problem: Lack of Knowledge: Goal: [...] improve to fullest extent possible Outcome: Progressing Problem: Lack of Knowledge: Goal: Ability to state ways to decrease the risk of falls will improve Outcome: Progressing Problem: Safety: Goal: Will remain free from falls Outcome: Progressing Goal: Will remain free from injury from falls Outcome: Progressing Goal: Will remain free from falls and injury in home environment Outcome: Progressing Problem: Respiratory: Goal: Ability to maintain a clear airway will improve Outcome: Progressing Goal: Complications related to the disease process, condition or treatment will be avoided or minimized Outcome: Progressing Problem: Medication: Goal: Satisfaction with pain management regimen will improve Outcome: Progressing Problem: Sensory: Goal: Ability to identify factors that increase the pain will improve Outcome: Progressing Goal: Pain level will decrease Outcome: Progressing * Plan of Care - Elena Cowan RN - 10/11/2021 2:47 PM CDT Problem: Health Behavior: Goal: Understanding of discharge needs will improve Outcome: Progressing Problem: Activity: Goal: Mobility will improve Outcome: Progressing Problem: Lack of Knowledge: Goal: [...] improve to fullest extent possible Outcome: Progressing Problem: Lack of Knowledge: Goal: Ability to state ways to decrease the risk of falls will improve Outcome: Progressing Problem: Safety: Goal: Will remain free from falls Outcome: Progressing Goal: Will remain free from injury from falls Outcome: Progressing Goal: Will remain free from falls and injury in home environment Outcome: Progressing Problem: Respiratory: Goal: Ability to maintain a clear airway will improve Outcome: Progressing Goal: Complications related to the disease process, condition or treatment will be avoided or minimized Outcome: Progressing Problem: Medication: Goal: Satisfaction with pain management regimen will improve Outcome: Progressing Problem: Sensory: Goal: Ability to identify factors that increase the pain will improve Outcome: Progressing Goal: Pain level will decrease Outcome: Progressing Goals: Clinical Goals for the Shift: vss, rest, comfort, safety, remain free from falls, sitter at bedside Summary: pt A&Ox1. VSS on RA. No complaints of pain. Pt worked with therapy this afternoon, up to the chair. Sitter at bedside. Pt remains free from falls. * Plan of Care - Wellington Delgado MSW - 10/11/2021 9:12 AM CDT At this time, there is one accepting SNF, unsure if they are able to accept as COVID (+). AMARJIT spoke with patient's DPOA, provided update and reviewed SNF referrals. She voiced understanding. Addendum: AMARJIT sent messages via [employer] to pending facilities to determine referral status. Pendingresponses. * Plan of Care - Della Paniagua RN - 10/11/2021 2:52 AM CDT Problem: Health Behavior: Goal: Understanding of discharge needs will improve Outcome: Progressing Problem: Activity: Goal: Mobility will improve Outcome: Progressing Problem: Lack of Knowledge: Goal: [...] improve to fullest extent possible Outcome: Progressing Problem: Lack of Knowledge: Goal: Ability to state ways to decrease the risk of falls will improve Outcome: Progressing Problem: Safety: Goal: Will remain free from falls Outcome: Progressing Goal: Will remain free from injury from falls Outcome: Progressing Goal: Will remain free from falls and injury in home environment Outcome: Progressing Problem: Respiratory: Goal: Ability to maintain a clear airway will improve Outcome: Progressing Goal: Complications related to the disease process, condition or treatment will be avoided or minimized Outcome: Progressing Problem: Medication: Goal: Satisfaction with pain management regimen will improve Outcome: Progressing Problem: Sensory: Goal: Ability to identify factors that increase the pain will improve Outcome: Progressing Goal: Pain level will decrease Outcome: Progressing Goals: Clinical Goals for the Shift: vss, labs, sitter at bedside, promote comfort/safety, free from falls Summary: Pt A&Ox1, on room air, and VSS. Prn pain meds given once before bed for complaints of hip pain.Virtual sitter at bedside. Bed alarm in place. Pt slept comfortably throughout night, will continueto monitor. * Plan of Care - Shalini Escamilla RRT - 10/11/2021 2:07 AM CDT Problem: Respiratory: Goal: Ability to maintain a clear airway will improve Outcome: Progressing Goal: Complications related to the disease process, condition or treatment will be avoided or minimized Outcome: Progressing Inhaled Bronchodilator Therapy Patient assessed and scored per the established inhaled bronchodilator protocol criteria. Patient preference and subjective response to therapy used in conjunction with patient score to provide current aerosol therapy. Metered Dose Inhaler MDI given per physician order. The patient has been instructed on proper use and technique. The patient refused MDI @ 1924 on 10/10/21. * Plan of Care - Melissa Germain RN - 10/10/2021 5:11 PM CDT Problem: Health Behavior: Goal: Understanding of discharge needs will improve Outcome: Not Progressing Problem: Activity: Goal: Mobility [...] improve to fullest extent possible Outcome: Progressing Problem: Lack of Knowledge: Goal: Ability to state ways to decrease the risk of falls will improve Outcome: Not Progressing Problem: Safety: Goal: Will remain free from falls Outcome: Progressing Goal: Will remain free from injury from falls Outcome: Progressing Goal: Will remain free from falls and injury in home environment Outcome: Progressing Problem: Respiratory: Goal: Ability to maintain a clear airway will improve Outcome: Progressing Goal: Complications related to the disease process, condition or treatment will be avoided or minimized Outcome: Not Progressing Problem: Medication: Goal: Satisfaction with pain management regimen will improve Outcome: Progressing Problem: Sensory: Goal: Ability to identify factors that increase the pain will improve Outcome: Not Progressing Goal: Pain level will decrease Outcome: Progressing Goals: Clinical Goals for the Shift: Stable VS and labs, pain and wound management, constant observation for safety, patient to remain free of falls. Summary: VSS, continue pain and wound management, continue constant observation for safety, no complaints this shift. Patient remains free of falls. * Plan of Care - Kenji Alberto RN - 10/10/2021 3:29 AM CDT Problem: Health Behavior: Goal: Understanding of discharge needs will improve Outcome: Not Progressing Problem: Activity: Goal: Mobility will improve Outcome: Not Progressing Problem: Lack of Knowledge: Goal: Understanding of ways to prevent future skin breakdown will improve Outcome: Not Progressing Problem: Skin Integrity: Goal: Risk for impaired skin integrity will decrease Outcome: Not Progressing Problem: Lack of Knowledge: Goal: Ability to state ways to decrease the risk of falls will improve Outcome: Not Progressing Goals: Clinical Goals for the Shift: Monitor VS, labs, comfort and safety Summary: Pt A/O to person only. Confused. Sitter until 2300. Pt slept through the night. VSS. RA. Declined pain meds aside from scheduled aspirin. Low bed with four rails and cushions/pads on floor. Free from falls thus far. Agitated at med pass but compliant. Isolation due to COVID-19. Will continue to monitor. * Plan of Care - Renetta Ledbetter RN - 10/09/2021 6:33 PM CDT Problem: Health Behavior: Goal: Understanding of discharge needs will improve Outcome: Progressing Problem: Activity: Goal: Mobility will improve Outcome: Progressing Problem: Lack of Knowledge: Goal: [...] improve to fullest extent possible Outcome: Progressing Problem: Lack of Knowledge: Goal: Ability to state ways to decrease the risk of falls will improve Outcome: Progressing Problem: Safety: Goal: Will remain free from falls Outcome: Progressing Goal: Will remain free from injury from falls Outcome: Progressing Goal: Will remain free from falls and injury in home environment Outcome: Progressing Problem: Respiratory: Goal: Ability to maintain a clear airway will improve Outcome: Progressing Goal: Complications related to the disease process, condition or treatment will be avoided or minimized Outcome: Progressing Goals: Clinical Goals for the Shift: monitor VS, rest, safety Summary: AO to self, VSS, RA, pain managed see MAR, pt had sitter through out the shift, remained free from falls, call light at the bedside. Renetta Ledbetter, RN * Plan of Care - Yun Torre RRT - 10/09/2021 8:14 AM CDT Problem: Respiratory: Goal: Ability to maintain a clear airway will improve Outcome: Progressing Goal: Complications related to the disease process, condition or treatment will be avoided or minimized Outcome: Progressing Inhaled Bronchodilator Therapy Patient assessed and scored per the established inhaled bronchodilator protocol criteria. Patient preference and subjective response to therapy used in conjunction with patient score to provide current aerosol therapy. Metered Dose Inhaler MDI given per physician order. The patient has been instructed on proper use and technique. The patient tolerates the treatment well with good technique. * Plan of Care - Hamida Shirley RN - 10/09/2021 3:34 AM CDT Problem: Health Behavior: Goal: Understanding of discharge needs will improve Outcome: Not Progressing Problem: Activity: Goal: Mobility will improve Outcome: Progressing Problem: Lack of Knowledge: Goal: Understanding of ways to prevent future skin breakdown will improve Outcome: Not Progressing Goal: Ability to identify appropriate dietary choices will improve Outcome: Not Progressing Problem: Nutritional: Goal: Ability to maintain a balanced intake and output will improve Outcome: Progressing Problem: Skin Integrity: Goal: Risk for impaired skin integrity will decrease Outcome: Progressing Goal: Ability to demonstrate warm and dry skin will improve Outcome: Progressing Goal: Circulation will improve to fullest extent possible Outcome: Progressing Problem: Lack of Knowledge: Goal: Ability to state ways to decrease the risk of falls will improve Outcome: Not Progressing Problem: Safety: Goal: Will remain free from falls Outcome: Progressing Goal: Will remain free from injury from falls Outcome: Progressing Problem: Respiratory: Goal: Ability to maintain a clear airway will improve Outcome: Progressing Goal: Complications related to the disease process, condition or treatment will be avoided or minimized Outcome: Progressing Goals: Clinical Goals for the Shift: monitor, vss, pain, surgical incision, promote rest and safety Summary: patient oriented to self, vss, sitter in place. patient has no complaint of any pain. patient ripped out one of his iv overnight. patient slept periodically throughout the night and remainedfree from falls Hamida Shirley RN * Plan of Care - Florencia Enriquez RRT - 10/08/2021 9:08 PM CDT Problem: Respiratory: Goal: Ability to maintain a clear airway will improve Outcome: Progressing Goal: Complications related to the disease process, condition or treatment will be avoided or minimized Outcome: Progressing Metered Dose Inhaler MDI given per physician order. The patient has been instructed on proper use and technique. The patient tolerates the treatment well with good technique. Lung Sounds Lungs are diminished to auscultation with no accessory muscle use. No complaint of subjective dyspnea. * Plan of Care - Aby Hsieh RN - 10/08/2021 3:32 PM CDT Goals: Clinical Goals for the Shift: vss, surgery, rest and comfort Summary: Pt vss, A&O1-2, on 2L O2. No complaints of pain this shift. Pt came back from surgery around 1300. Pt has been drowsy since procedure. Sitter is at bedside. Pt resting comfortably in bedfor most of shift. Free from falls this shift, call light within reach. Will update as needed. * Op Note - Miguel Flores MD - 10/08/2021 11:08 AM CDT Operative Report PATIENT NAME: Jania Redman MR#: [id number] DATE OF : 1950 ACCT#: @ACCOUNTNO@ DATE OF OPERATION: 10/08/2021 ROOM#: @ROOM@ PREOPERATIVE DIAGNOSIS: Right intertrochanteric hip fracture. POSTOPERATIVE DIAGNOSIS: right intertrochanteric hip fracture. PROCEDURE PERFORMED: Right Das [employer] Nephew Trigen Intertan trochanteric nailing of intertrochanteric femur fracture SURGEON: Miguel Flores MD STUDENT MINISTRY PASTOR: Cielo Persaud EBL: 100 ccs ANESTHESIA: GETA INDICATIONS: This 71 y.o.male fell sustaining an intertrochanteric hip fracture. After preoperative medical clearance was obtained, I discussed the risks and benefits in great detail of intramedullary hip nailingwith his to facilitate ambulation, pain relief and early mobilization. She appears to understand and desires to proceed. PROCEDURE: After satisfactory anesthesia was obtained the patient was placed on the fracture table. 2 grams(s)of broad spectrum cephlosporin was administered. The operative hip was positioned under the C-arm and an acceptable reduction was obtained using traction, adduction and internal roation rotation. It was imaged in the AP and lateral plane. The extremity was then prepped and draped in the standard sterile surgical fashion. A One inch incision was made three inches above the greater trochanter. A guide pin was inserted into the intramedullary canal and confirmed to be in good position in the AP and lateral views. Following this, the medullary canal was reamed using the entry reamer. A 11.5 mm short Intertan nail was easily inserted to the desired depth using C-arm. I aligned the proximal screw hole such that the the guide wire would be aligned with the central portion of the head. A guidewire was inserted through the jig into the femoral neck and taking a lateral view, confirming acceptable position within the head. X-rays were taken to confirm acceptable position in both the AP and lateral views. I then measured the intramedullary length of the femoral neck and chose to use a 90 mm compression screw.We elected not to use the worm compression screw. The reamer was placed over the guide wire and the compression screw was placed in position. Acceptable position was confirmed in AP and lateral views. The worm screw was then inserted giving adequate compression of the fracture. The locking screw in the insertion point was locked into position, loosened slightly to allow pistoning and therefore compression of the fracture. At this point in time due to the stability of the construct, I elected not to lock it distally. It appeared to be solid such that the patient could be weightbearing as tolerated. The jig was removed. The incisions were copiously irrigated. The deep fascia was closed withan 0 Vicryl suture. The sub dermal tissue was closed with a 2-0 sub cutaneous suture and the skin was closed with alice. Xeroform gauze and sterile 4x4s were applied to the wound. Anesthesia was reversed and the patient was transferred back to her bed and returned to the recovery room in satisfactory condition. All sponge and instrument counts were correct. * Plan of Care - Barney Schmitt RN - 10/08/2021 3:09 AM CDT Problem: Health Behavior: Goal: Understanding of discharge needs will improve Outcome: Progressing Problem: Activity: Goal: Mobility will improve Outcome: Progressing Problem: Lack of Knowledge: Goal: [...] improve to fullest extent possible Outcome: Progressing Problem: Lack of Knowledge: Goal: Ability to state ways to decrease the risk of falls will improve Outcome: Progressing Problem: Safety: Goal: Will remain free from falls Outcome: Progressing Goal: Will remain free from injury from falls Outcome: Progressing Goal: Will remain free from falls and injury in home environment Outcome: Progressing Problem: Respiratory: Goal: Ability to maintain a clear airway will improve Outcome: Progressing Goal: Complications related to the disease process, condition or treatment will be avoided or minimized Outcome: Progressing Goals: Clinical Goals for the Shift: VSS, coom[place] and safety, rest, labs, free from respiratory and cardiac distress Summary: A&O x1 on RA with IV cath in place on saline lock and flushing well. Placed on NPO post midnight. Due meds given. Able to sleep comfortably. Labs taken. Sitter on bedside all the time. Monitored well. * Plan of Care - Aby Hsieh RN - 10/07/2021 2:19 PM CDT Goals: Clinical Goals for the Shift: vss, labs, safety, rest Summary: Pt vss, A&O1-2, on RA. No complaints of pain this shift. IV medication continued. Pt resting comfortably in bed for most of shift. Pt had an unwitnessed fall this AM at 0830. Bed alarm was on, pt was found on the floor by the occupational therapist. PA evaluated the pt. MD and pt's were notified of the fall. Pt pulled IV out this shift, new one placed in R hand. Hands off sitterrestarted at 1100. Pt resting comfortably in the bed. Call light within reach. * Plan of Care - Yun Torre RRT - 10/07/2021 7:30 AM CDT Problem: Respiratory: Goal: Ability to maintain a clear airway will improve Outcome: Progressing Goal: Complications related to the disease process, condition or treatment will be avoided or minimized Outcome: Progressing Inhaled Bronchodilator Therapy Patient assessed and scored per the established inhaled bronchodilator protocol criteria. Patient preference and subjective response to therapy used in conjunction with patient score to provide current aerosol therapy. Pt is at his respiratory baseline. Uses BREO at home. On room air. Cough Patient has a strong cough on demand. Will continue to monitor sputum amount, color, and consistency. * Plan of Care - Ana Adame RN - 10/07/2021 4:46 AM CDT Goals: Clinical Goals for the Shift: Stable vs,labs. Safety Summary: Pt A&O to self and hospital. Elevated BP. RA. No complaints of pain or sob. Sitter at bedside. Await additional orders. Problem: Health Behavior: Goal: Understanding of discharge needs will improve Outcome: Progressing Problem: Activity: Goal: Mobility will improve Outcome: Progressing Problem: Lack of Knowledge: Goal: [...] improve to fullest extent possible Outcome: Progressing Problem: Lack of Knowledge: Goal: Ability to state ways to decrease the risk of falls will improve Outcome: Progressing Problem: Safety: Goal: Will remain free from falls Outcome: Progressing Goal: Will remain free from injury from falls Outcome: Progressing Goal: Will remain free from falls and injury in home environment Outcome: Progressing Problem: Respiratory: Goal: Ability to maintain a clear airway will improve Outcome: Progressing Goal: Complications related to the disease process, condition or treatment will be avoided or minimized Outcome: Progressing * Plan of Care - Shalini Escamilla RRT - 10/07/2021 1:06 AM CDT Problem: Respiratory: Goal: Ability to maintain a clear airway will improve Outcome: Progressing Goal: Complications related to the disease process, condition or treatment will be avoided or minimized Outcome: Progressing Inhaled Bronchodilator Therapy Patient assessed and scored 6 per the established inhaled bronchodilator protocol criteria. Patientpreference and subjective response to therapy used in conjunction with patient score to provide current aerosol therapy. * Plan of Marilyn - Ken Hernández - 10/06/2021 1:37 PM CDT Problem: Health Behavior: Goal: Understanding of discharge needs will improve Outcome: Progressing Problem: Activity: Goal: Mobility will improve Outcome: Progressing Problem: Lack of Knowledge: Goal: [...] improve to fullest extent possible Outcome: Progressing Problem: Lack of Knowledge: Goal: Ability to state ways to decrease the risk of falls will improve Outcome: Progressing Problem: Safety: Goal: Will remain free from falls Outcome: Progressing Goal: Will remain free from injury from falls Outcome: Progressing Goal: Will remain free from falls and injury in home environment Outcome: Progressing Problem: Respiratory: Goal: Ability to maintain a clear airway will improve Outcome: Progressing Goal: Complications related to the disease process, condition or treatment will be avoided or minimized Outcome: Progressing Goals: Summary: will continue to monitor. * ECIN Note - Wellington Delgado MSW - 10/06/2021 9:13 AM CDT Patient Information: Comprehensive Nursing Documentation Attending Provider: Elisa Oliva MD Allergies: Penicillins Isolation: Airborne, Contact Infection: MDR gram neg/ESBL (12/21/19), COVID19 (10/04/21) Code Status: FULL Advance Care Planning Activity Ht: 180.3 cm (5' 11 ) Wt: 80.6 kg (177 lb 11.1 oz) Admission Cmt: None Principal Problem: Sepsis due to COVID-19 ([facility]) ([facility]) [U07.1,A41.89] Intake/Output 10/04/21699 - 10/05/21 0659 10/05/21 07 - 10/06/21 0659 Total 0940-5524 2573-1921 5266-7608 Total Intake (ml) 450 460 100 100 660 Output (ml) 950 500 -- -- 500 Net (ml) -500 -40 100 100 160 Last Weight 80.7 kg (178 lb) 80.6 kg (177 lb 11.1 oz) -- -- -- Patient Lines/Drains/Airways Status Active Airway / Central venous catheter / Drain / Epidural cathether / Intraosseous line / Peripherally inserted central catheter / Peripheral intravenous line / Arterial line Name Placement date Placement time Site Days External Urinary Catheter 07/04/218 -- 93 Peripheral IV 10/04/21 20 G Left Forearm 10/04/21 1459 Forearm 1 Patient Lines/Drains/Airways Status Active Wound / Pressure ulcer / Johnson / Negative Pressure Wound Wound 06/27/21 MASD (Moisture associated skin damage) Perineum , buttocks Date First Assessed 06/27/21 Site Perineum Time First Assessed 1425 Days 100 Wound Type: MASD (Moisture associated skin damage) Wound Description (Comments): , buttocks Hardin Fall Risk Flowsheet Row Most Recent Value Prior Fall Event (Autopopulated from EMR) None found ............filed at 10/05/2021 1300 History of Falling 25 ............filed at 10/05/2021 1300 Secondary Diagnosis 15 ............filed at 10/05/2021 1300 Ambulatory Aids 15 ............filed at 10/05/2021 1300 Intravenous Therapy/Heparin/Saline Lock 20 ............filed at 10/05/2021 1300 Gait/Transferring 10 ............filed at 10/05/2021 1300 Mental Status 15 ............filed at 10/05/2021 1300 Hardin Fall Risk Score 100 ............filed at 10/05/2021 1300 Vital Signs Report 10/05 0700 10/06 0659 10/06 0710/06 0914 Most Recent Temp (??C) 36.5 - 36.6 Pulse 82 - 106 89 10/05 2215 Resp 16 - 24 SpO2 (%) 92 - 99 98 98 10/06 0802 BP 137/73 - 167/110 137/73 10/05 2215 MAP (mmHg) 91 - 127 Default Flowsheet Data (most recent) Endurance Tests No documentation. Nursing Nutrition Feeding Level of Assistance 10/05 1300 Needs set up;Able to feed self Appetite 10/05 1300 Good Nursing Mobility Activity 10/05 2215 Chair 10/05 1921 Chair 10/05 1838 Resting in bed 10/05 1710 Resting in bed 10/05 1518 Resting in bed 10/05 1300 Chair 10/05 1221 Chair 10/05 1123 Resting in bed Level of Assistance 10/05 2215 Standby assist, set-up cues, supervision of patient - no hands on 10/05 192 Standby assist, set-up cues, supervision of patient - no hands on 10/05 1838 Contact guard assist, steadying assist 10/05 1710 Contact guard assist, steadying assist 10/05 1518 Contact guard assist, steadying assist 10/05 1123 Contact guard assist, steadying assist Assistive Device 10/05 2214 Gait belt;Walker 10/05 192 Gait belt;Walker Repositioned 10/05 2215 Turns self 10/05 1921 Turns self 10/05 1838 Turns self 10/05 1710 Bed placed in chair position (Comment: pt eating dinner) 10/05 1518 Turns self 10/05 1300 Up in chair 10/05 1221 Up in chair Positioning Frequency 10/05 2215 Able to turn self 10/05 1921 Able to turn self 10/05 1838 Able to turn self 10/05 1710 Able to turn self 10/05 1518 Able to turn self 10/05 1300 Able to turn self Head of Bed Elevated 10/05 2215 Self regulated 10/05 1921 Self regulated 10/05 1838 Self regulated 10/05 1710 Self regulated 10/05 1518 Self regulated 10/05 1300 HOB 30 Heels/Feet 10/05 2215 Foot of bed elevated 10/05 1838 Foot of bed elevated 10/05 1710 Foot of bed elevated 10/05 1518 Foot of bed elevated 10/05 1300 Foot of bed elevated Range of Motion 10/05 2214 Active;All extremities 10/05 1921 Active;All extremities 10/05 1300 Active Type of Device 10/05 2214 Mechanical compression 10/05 1300 -- (Comment: lovenox) Mechanical Compression Site 10/05 2214 Bilateral Mechanical Compression Type 10/05 2214 IPC/SCD Mechanical Compression Status 10/05 2214 Other (Comment) (Comment: lovenox) , Meds and Admin Active Only All Meds/Most Recent Administrations All Meds/Most Recent Administrations sodium chloride 0.9% bolus 1,000 mL [[id number]] Ordering Provider: Gian Jackson MD Status: Completed (Past End Date/Time) Ordered On: 10/04/21 141 Starts/Ends: 10/04/21 1413 - 10/04/21 1545 Ordered Dose (Remaining/Total): 1,000 mL (0/1) Route: intravenous Frequency: Once Ordered Rate/Order Duration: 1,000 mL/hr / 1 Hours Line Med Link Info Comment Peripheral IV 07/03/21 20 G Anterior;Left Forearm 10/04/21 141 by Lakia Youngblood RN -- Timestamps Action Dose / Rate / Duration Route Other Information 10/04/21 141 New Bag 1,000 mL 1,000 mL/hr 1 Hours intravenous Performed by: Lakia Youngblood RN sodium chloride 0.9% bolus 1,400 mL [[id number]] Ordering Provider: Alysha Ramirez MD Status: Completed (Past End Date/Time) Ordered On: 10/04/21 141 Starts/Ends: 10/04/21 1419 - 10/04/21 1619 Ordered Dose (Remaining/Total): 1,400 mL (0/1) Route: intravenous Frequency: Once Ordered Rate/Order Duration: 1,400 mL/hr / 1 Hours Timestamps Action Dose / Rate / Duration Route Other Information 10/04/21 1501 New Bag 1,400 mL 1,400 mL/hr 1 Hours intravenous Performed by: Esau Wong RN dexAMETHasone (DECADRON) 4 mg/mL injection 6 mg [[id number]] Ordering Provider: Alysha Ramirez MD Status: Completed (Past End Date/Time) Ordered On: 10/04/211711 Starts/Ends: 10/04/211712 - 10/04/21 180 Ordered Dose (Remaining/Total): 6 mg (0/1) Route: intravenous Frequency: Once Ordered Rate/Order Duration: -- / 2 Minutes Timestamps Action Dose / Duration Route Other Information 10/04/21 1759 Given 6 mg 2 Minutes intravenous Performed by: Esau Wong RN Scanned Package: 76404-916-39 aspirin enteric coated tablet 81 mg [[id number]] Ordering Provider: Saqib Currie DO Status: Dispensed Ordered On: 10/05/2120 Start: 10/05/21899 Ordered Dose (Remaining/Total): 81 mg (--/--) Route: oral Frequency: Daily Ordered Rate/Order Duration: -- / -- Admin Instructions: Do not crush, chew, cut, dissolve, open or otherwise manipulate tablet/capsule. Timestamps Action Dose Route Other Information 10/05/21830 Given 81 mg oral Performed by: Xena Childress RN Scanned Package: [id number] budesonide-formoteroL (SYMBICORT) 80-4.5 mcg/actuation inhaler 2 puff [[id number]] Ordering Provider: Saqib Currie DO Status: Verified Ordered On: 10/05/2120 Start: 10/05/21799 Ordered Dose (Remaining/Total): 2 puff (--/--) Route: inhalation Frequency: 2 times daily (disaster response director) Ordered Rate/Order Duration: -- / -- Question Answer Comment I /authorizing provider attest that the patient meets the approved [facility] Use Criteria:: Yes -- Timestamps Action Dose Route Other Information 10/06/21801 Given 2 puff inhalation Performed by: Corine Shay CRTT Scanned Package: 0093-0856-95 folic acid (FOLVITE) tablet 1 mg [[id number]] Ordering Provider: Saqib Currie DO Status: Dispensed Ordered On: 10/05/2120 Start: 10/05/21899 Ordered Dose (Remaining/Total): 1 mg (--/--) Route: oral Frequency: Daily Ordered Rate/Order Duration: -- / -- Timestamps Action Dose Route Other Information 10/05/21829 Given 1 mg oral Performed by: Xena Childress RN Scanned Package: [id number] (PROTONIX) extended release tablet 40 mg [[id number]] Ordering Provider: Saqib Currie DO Status: Dispensed Ordered On: 10/05/2120 Start: 10/05/21899 Ordered Dose (Remaining/Total): 40 mg (--/--) Route: oral Frequency: Daily Ordered Rate/Order Duration: -- / -- Admin Instructions: Do not crush, chew, cut, dissolve, open or otherwise manipulate tablet/capsule. Timestamps Action Dose Route Other Information 10/05/21829 Given 40 mg oral Performed by: Xena Childress RN Scanned Package: 49198-725-33 pravastatin (PRAVACHOL) tablet 40 mg [[id number]] Ordering Provider: Saqib Currie DO Status: Dispensed Ordered On: 10/05/2120 Start: 10/05/21899 Ordered Dose (Remaining/Total): 40 mg (--/--) Route: oral Frequency: Daily Ordered Rate/Order Duration: -- / -- Timestamps Action Dose Route Other Information 10/05/21829 Given 40 mg oral Performed by: Xena Childress RN Scanned Package: 29373-600-77 thiamine (VITAMIN B1) tablet 100 mg [[id number]] Ordering Provider: Saqib Currie DO Status: Dispensed Ordered On: 10/05/2120 Start: 10/05/21899 Ordered Dose (Remaining/Total): 100 mg (--/--) Route: oral Frequency: Every morning Ordered Rate/Order Duration: -- / -- Timestamps Action Dose Route Other Information 10/05/21829 Given 100 mg oral Performed by: Xena Childress RN Scanned Package: [id number] ondansetron ODT (ZOFRAN-ODT) disintegrating tablet 4 mg [[id number]] Ordering Provider: Saqib Currie DO Status: Verified Ordered On: 10/05/2120 Start: 10/05/2120 Ordered Dose (Remaining/Total): 4 mg (--/--) Route: oral Frequency: Every 6 hours PRN Ordered Rate/Order Duration: -- / -- (No admins scheduled or recorded for this medication) ondansetron (ZOFRAN) injection 4 mg [[id number]] Ordering Provider: Saqib Currie DO Status: Verified Ordered On: 10/05/2120 Start: 10/05/2120 Ordered Dose (Remaining/Total): 4 mg (--/--) Route: intravenous Frequency: Every 6 hours PRN Ordered Rate/Order Duration: -- / 2 Minutes (No admins scheduled or recorded for this medication) enoxaparin (LOVENOX) syringe 40 mg [[id number]] Ordering Provider: Saqib Currie DO Status: Dispensed Ordered On: 10/05/2120 Start: 10/05/212099 Ordered Dose (Remaining/Total): 40 mg (--/--) Route: subcutaneous Frequency: Daily (for enoxaparin) Ordered Rate/Order Duration: -- / -- Timestamps Action Dose Route / Site Other Information 10/05/212214 Given 40 mg subcutaneous Left Lower Abdomen Performed by: Eugene Toro RN Scanned Package: 69876-231-63 acetaminophen (TYLENOL) tablet 650 mg [[id number]] Ordering Provider: Saqib Currie DO Status: Verified Ordered On: 10/05/2120 Start: 10/05/2120 Ordered Dose (Remaining/Total): 650 mg (--/--) Route: oral Frequency: Every 4 hours PRN Ordered Rate/Order Duration: -- / -- (No admins scheduled or recorded for this medication) remdesivir (VEKLURY) 200 mg/290 mL in sodium chloride 0.9% infusion (premix) 200 mg [[id number]] Ordering Provider: Saqib Currie DO Status: Completed (Past End Date/Time) Ordered On: 10/04/211717 Starts/Ends: 10/04/211722 - 10/04/21 191 Ordered Dose (Remaining/Total): 200 mg (0/1) Route: intravenous Frequency: Every 24 hours Ordered Rate/Order Duration: 290 mL/hr / 60 Minutes Admin Instructions: Do not shake or tube. Question Answer Comment [facility] appropriate use criteria for remdesivir are limited to the following below options. It is recommended that therapy for infections outside of these indications be discussed with infectious diseases, if available.: Laboratory- confirmed severe and/or critical COVID-19 -- Timestamps Action Dose / Rate / Duration Route Other Information 10/04/21 1800 New Bag 200 mg 290 mL/hr 60 Minutes intravenous Performed by: Esau Wong RN Scanned Package: [id number], [id number] remdesivir (VEKLURY) 100 mg/270 mL in sodium chloride 0.9% infusion (premix) 100 mg [[id number]] Ordering Provider: Saqib Currie DO Status: Dispensed Ordered On: 10/04/21 1718 Starts/Ends: 10/05/21 1704 - 10/09/21 170 Ordered Dose (Remaining/Total): 100 mg (3/4) Route: intravenous Frequency: Every 24 hours Ordered Rate/Order Duration: 270 mL/hr / 60 Minutes Admin Instructions: Do not shake or tube. Note to pharmacy: Double check timing upon verification Question Answer Comment [facility] appropriate use criteria for remdesivir are limited to the following below options. It is recommended that therapy for infections outside of these indications be discussed with infectious diseases, if available.: Laboratory- confirmed severe and/or critical COVID-19 -- Line Med Link Info Comment Peripheral IV 10/04/21 20 G Left Forearm 10/05/21 1603 by Jemma Spivey RN -- Timestamps Action Dose / Rate / Duration Route Other Information 10/05/21 1603 New Bag 100 mg 270 mL/hr 60 Minutes intravenous Performed by: Jemma Spivey RN metoprolol tartrate (LOPRESSOR) immediate release tablet 25 mg [[id number]] Ordering Provider: Elisa Oliva MD Status: Dispensed Ordered On: 10/05/21 1414 Start: 10/05/21 1445 Ordered Dose (Remaining/Total): 25 mg (--/--) Route: oral Frequency: 2 times daily Ordered Rate/Order Duration: -- / -- Timestamps Action Dose Route Other Information 10/05/21 2215 Given 25 mg oral Performed by: Eugene Toro RN Scanned Package: [id number] * ECIN Note - Wellington Delgado MSW - 10/06/2021 9:13 AM CDT Images from the original note were not included. Patient Information: OT Eval and Treat Last 72 Hours OT Evaluation Row Name 10/05/21 1109 Chart Reviewed Yes -GW Session Type Evaluation -GW OT Received On 10/05/21 -GW Safe Environment Arm Band Checked;Chair Alarm placed and activated;Call Light within Reach;NotifiedRN -GW Additional Pertinent History Admitted after being found unresponsive in his wc. Pt. dx with severe sepsis d/t Covid-19. Pt. with history of TBI d/t SAH, afib, HTN, dementia, CHF, legally blind, TIA, COPD, orthostatic hypotension -GW Family/Caregiver Present No -GW Occupational Therapy-Patient Goal Pt. with difficulty setting goal due to AMS; pt. agreeable to therapy -GW Precautions Bed/Chair Alarm;Fall risk -GW Type of Home Extended Care Facility -GW Additional Comments Pt. unreliable historian due to AMS. EMR references that pt. lives in the [facility]. Pt. has reportedly been declining since his SDH in June -GW ADL Assistance Unable to obtain -GW ADLS (WDL) X -GW Grooming: Where assessed Standing at sink -GW Grooming: Level of assistance Moderate Assist Pt. very unsteady with multiple losses of balance in multiple directions -GW Grooming: Assistance with Teeth care brushed teeth in standing, sat to comb hair -GW LE Dressing: Where assessed Chair -GW LE Dressing: Level of assistance Maximal Verbal Cues When instructed by OT to take your socks off pt. continously attempts to doff gait belt & hospital gown. Pt. required max verbal + moderate physical cues to actually doff socks -GW LE Dressing: Assistance with Don/doff R sock;Don/doff L sock;Attending to task;Problem solving;Sequencing -GW Pain Assessment No/denies pain -GW Clinical Progression Not changed -GW Overall Cognitive Status Impaired -GW Arousal/Alertness Alert -GW Attention Span Distractability;Attends with cues to redirect -GW Memory Decreased short term memory -GW Current communication Appears Intact -GW Orientation Oriented to person -GW Following Commands Follows one step commands with repetition -GW Safety Judgment Impulsive -GW Awareness of Errors Assistance required to identify errors made;Assistance required to correct errors made;Decreased awareness of errors -GW Insight Not aware of deficits -GW Problem Solving Assistance required to identify errors made;Assistance required to generate solutions;Assistance required to implement solutions -GW Compliance/Behavior Easy to engage -GW Bed Mobility Comments 1 Upon OT entry pt. found supine in bed, vitals: 178/110, 100 bpm, 100% on room air. Supine > sit minimum assist (physical assist mostly required d/t cognitive deficits &difficulty understanding cues as opposed to weakness alone) -GW Trials/Comments 1 Stand pivot transfer EOB > recliner (90D turn) via ww minimum assist. Pt. attempts to pull up on walker (rather than pushing from bed), requires assist to turn walker, etc -GW Trials/Comments 2 Sit <> stand to/from recliner CGA/minimum assist. Pt. grooms at sink, however, pt. very unsteady with multiple LOB in various directions -GW RUE Assessment WFL -GW LUE Assessment WFL -GW Plan If this is the last note, consider this the discharge summary -GW OT Recommendation Intermediate Facility -GW OT Frequency 3-5x/wk -GW OT Evaluation Complete Yes -GW User Perdomo (r) = Recorded By, (t) = Taken By, (c) = Cosigned By Initials Name Effective Dates GW Je Williamson OT 12/29/18 - OT Treatment No documentation. OT Notes 10/05/2021 1:32 PM Progress Notes signed by Je Williamson OT , PT Eval and Treat Last 72 Hours PT Evaluation No documentation. PT TREATMENT (last 168 hours) PT Treatment No documentation. PT Notes Notes from 10/04/21 through 10/06/21 No notes of this type exist for this encounter. , HYDROGRAPHIC SURVEYOR Eval and Treat Last 72 Hours HYDROGRAPHIC SURVEYOR Evaluation No documentation. HYDROGRAPHIC SURVEYOR Treatment No documentation. Clinical Swallow Study No documentation. HYDROGRAPHIC SURVEYOR Notes Notes from 10/04/21 through 10/06/21 No notes of this type exist for this encounter. * Plan of Care - Wellington Delgado MSW - 10/06/2021 8:44 AM CDT KAL Initial Assessment Interview Note Information Obtained From: Significant other Name: DPOA/Raine Redman ([phone]) (10/06/21 0914) Admission Source: [facility], [facility] Impression: patient is confused, tested COVID (+) on 10/04. Assessment completed with patient's DPOA/Raine. Plan Includes: new placement [place], [place] Primary Source of Transportation: Has discharge transport been arranged?: No (10/05/21 1313) Health Insurance Coverage: [facility] MEDICARE/[employer] MEDICARE PREFERRED PPO Prescription Coverage: [facility] MEDIC[facility]/[employer] MEDICARE PREFERRED PPO Pharmacy: through facility's preferred pharmacy at this time Primary Care Provider: Jean-Claude Salazar MD Prior to Admission: Primary Caregiver: Facility staff Support System: Spouse/Significant Other, Other (Comment) Support system contact info (name, phone, availablity): DPOA/Rainekendal Redman ([phone]), facility staff Home Care Services: No Living Arrangements: snf Type of Residence: snf Does patient wish to return to care facility?: No, wishes for other placement (DPOA wants closer [facility]) Will the care facility allow the patient to return?: Yes, patient can return Facility contact name and number:: [facility] ([phone]) Steps in home? : No steps inside or outside (10/06/21 0914) SDOH: Transportation Needs: No Transportation Needs ??? Lack of Transportation (Medical): No ??? Lack of Transportation (Non-Medical): No Financial Resource Strain: Medium Risk ??? Difficulty of Paying Living Expenses: Somewhat hard Housing Stability: Low Risk ??? Unable to Pay for Housing in the Last Year: No ??? Number of Places Lived in the Last Year: 1 ??? Unstable Housing in the Last Year: No Social Connections: Socially Isolated ??? Frequency of Communication with Friends and Family: Three times a week ??? Frequency of Social Gatherings with Friends and Family: Never ??? Attends Baptism Services: Never ??? Active Member of Clubs or Organizations: No ??? Attends Club or Organization Meetings: Never ??? Marital Status: Tobacco Use: High Risk ??? Smoking Tobacco Use: Current Every Day Smoker ??? Smokeless Tobacco Use: Never Used Social History Substance and Sexual Activity Alcohol Use Yes Comment: limited E-Cigarette/Vaping Questions Responses E-cigarette/Vaping Use Never User PHQ Screening Potential discharge needs include: possibly SNF Dialysis: none Behavioral Health Services: none Patient expects to be Discharged to: Intermediate Facility, (10/06/21 0914) Additional Information: Per facility admissions, patient is SNF at [facility], recently received letter stating that patient's services will no longer be covered by insurance, spoke with patient's spouse regarding Medicaid application. Patient's spouse stated that she is not able to drive to [facility], would like patient to be closer to home in [place], [place]. She also explained that patient will need to transition toLTC if not able to ambulate enough for home. SW will ensure facilities are aware of this and are able to provide assistance with Medicaid application. Patient's Identified Problem/Goal Problem: Ensure acute medical needs are met and that patient has a safe discharge plan. Goal: Secure a discharge plan that patient/family are agreeable with and ensure patient has continuum of care. Case management will follow for discharge planning and send referrals as needed. Goals include: To assure continuity of care, To maximize coping skills, To assure patient is in a safe environment and To assure access to community resources. Plan includes: 1. Collaboration with patient, MD, direct care nurse, Assistant Program Director, Nurse Coordinator and other members of the health care team to assure needed interventions completed. 2. Return patient to optimal level of self-care post discharge. 3. [employer] will follow for Discharge Planning - interventions as needed 4. Anticipated level of care at discharge 5. Planned Discharge Disposition PAIGE Lerma * Plan of Care - Corine Shay CRTT - 10/06/2021 8:02 AM CDT Problem: Respiratory: Goal: Complications related to the disease process, condition or treatment will be avoided or minimized Outcome: Progressing Inhaled Bronchodilator Therapy Patient assessed and scored per the established inhaled bronchodilator protocol criteria. Patient preference and subjective response to therapy used in conjunction with patient score to provide current aerosol therapy. Metered Dose Inhaler MDI given per physician order. The patient has been instructed on proper use and technique. The patient tolerates the treatment well with good technique. Patient takes breo @ home. * Plan of Care - Shalini Escamilla RRT - 10/06/2021 5:08 AM CDT Problem: Respiratory: Goal: Ability to maintain a clear airway will improve Outcome: Progressing Goal: Complications related to the disease process, condition or treatment will be avoided or minimized Outcome: Progressing Pt on RA and on home regimen. Pt not in distress at this time. * Plan of Care - Wellington Delgado MSW - 10/05/2021 4:01 PM CDT Patient is from [facility]. [facility] unit trust manager reported that patient's significant other called and requested a new facility closer to home. Per chart, patient is confused. SW left for patient's DPOA/Raine Sale ([phone]) to completeassessment, requested she return call. * Plan of Care - Jemma Spivey RN - 10/05/2021 1:50 PM CDT Problem: Health Behavior: Goal: Understanding of discharge needs will improve Outcome: Not Progressing Problem: Activity: Goal: Mobility will improve Outcome: Not Progressing Problem: Lack of Knowledge: Goal: Understanding of ways to prevent future skin breakdown will improve Outcome: Not Progressing Goal: Ability to identify appropriate dietary choices will improve Outcome: Not Progressing Goals: Summary: alert and oriented x 1, on room air, coombs cath removed, cont with IV abx, due meds given,impulsive at times, easy redirectable, call light within reach, will cont to monitor * ED Procedure Note - Gian Jackson MD - 10/04/2021 3:12 PM CDTAssociated Order(s): Critical Care Procedure Critical Care Performed by: Gian Jackson MD Authorized by: Gian Jackson MD Critical care provider statement: As reflected in the history, physical exam, orders, notes, and/or MDM, I was personally present while the patient was critically ill and provided critical care services for approximately 50 minutes, excluding time involved in separately billable procedures. Critical care was necessary to treat or prevent imminent or life-threatening deterioration of the following condition(s): acute delirium Hypotension, septic shock sepsis and pneumonia Critical care was time spent by me providing the following: continuous telemetry, continuous pulse oximetry, interpretation of bedside monitors, imaging, and arterial/venous lab draws, serial bedside patient exams and resuscitation with fluids Sepsis management, 30 mL per kg sepsis fluid bolus supplemental oxygen review prior cultures/records, obtain appropriate cultures and empiric broad coverage antibiotics I provided emergent necessary critical care medicine services to this patient. I ordered and reviewed test results and/or imaging studies. I spent time discussing the management of this critically ill patient with consultants and the medical staff. I spent time discussing the management and therapeutic options for this critically ill patient with the patient themselves or with the appropriate designated surrogate decision-maker. I spent time documenting in the medical record. Gian Jackson MD 10/04/21 1514 documented in this encounter Plan of Treatment Not on file documented as of this encounter Procedures Procedure Name Priority Date/Time Associated Diagnosis Comments POCT GLUCOSE DEVICE Routine 10/28/2021 5 :55 AM CDT POCT GLUCOSE DEVICE Routine 10/27/2021 6 :08 AM CDT EGFR Routine 10/26/2021 6:27 AM CDT DIFFERENTIAL AUTO Routine 10/26/2021 6:2 7 AM CDT CBC WITH AUTO DIFFERENTIAL Routine 10/26/2021 6:27 AM CDT MAGNESIUM Routine 10/26/2021 6:27 AM CDT RENAL FUNCTION PANEL Routine 10/26/2021 6:27 AM CDT POCT GLUCOSE DEVICE Routine 10/26/2021 6 :06 AM CDT POCT GLUCOSE DEVICE Routine 10/25/2021 6 :08 AM CDT POCT GLUCOSE DEVICE Routine 10/24/2021 6 :08 AM CDT XR PELVIS ORTHO VIEW IP Routine 10/23/2021 11:06 AM CDT POCT GLUCOSE DEVICE Routine 10/23/2021 6 :11 AM CDT POCT GLUCOSE DEVICE Routine 10/22/2021 6 :13 AM CDT POCT GLUCOSE DEVICE Routine 10/21/2021 5 :58 AM CDT POCT GLUCOSE DEVICE Routine 10/20/2021 5 :50 AM CDT EGFR Routine 10/19/2021 6:37 AM CDT DIFFERENTIAL AUTO Routine 10/19/2021 6:3 7 AM CDT CBC WITH AUTO DIFFERENTIAL Routine 10/19/2021 6:37 AM CDT BASIC METABOLIC PANEL Routine 10/19/2021 6:37 AM CDT EGFR Routine 10/18/2021 7:34 AM CDT DIFFERENTIAL AUTO Routine 10/18/2021 7:3 4 AM CDT CBC WITH AUTO DIFFERENTIAL Routine 10/18/2021 7:34 AM CDT BASIC METABOLIC PANEL Routine 10/18/2021 7:34 AM CDT EGFR Routine 10/16/2021 6:13 AM CDT DIFFERENTIAL AUTO Routine 10/16/2021 6:1 3 AM CDT CBC WITH AUTO DIFFERENTIAL Routine 10/16/2021 6:13 AM CDT BASIC METABOLIC PANEL Routine 10/16/2021 6:13 AM CDT EGFR Routine 10/15/2021 10:30 AM CDT DIFFERENTIAL AUTO Routine 10/15/2021 10: 30 AM CDT CBC WITH AUTO DIFFERENTIAL Routine 10/15/2021 10:30 AM CDT BASIC METABOLIC PANEL Routine 10/15/2021 10:30 AM CDT EGFR Routine 10/14/2021 7:00 AM CDT DIFFERENTIAL AUTO Routine 10/14/2021 7:0 0 AM CDT CBC WITH AUTO DIFFERENTIAL Routine 10/14/2021 7:00 AM CDT BASIC METABOLIC PANEL Routine 10/14/2021 7:00 AM CDT POCT GLUCOSE DEVICE Routine 10/14/2021 6 :41 AM CDT POCT GLUCOSE DEVICE Routine 10/13/2021 6 :37 AM CDT EGFR Routine 10/13/2021 5:12 AM CDT DIFFERENTIAL AUTO Routine 10/13/2021 5:1 2 AM CDT CBC WITH AUTO DIFFERENTIAL Routine 10/13/2021 5:12 AM CDT BASIC METABOLIC PANEL Routine 10/13/2021 5:12 AM CDT EGFR Routine 10/12/2021 6:41 AM CDT DIFFERENTIAL AUTO Routine 10/12/2021 6:4 1 AM CDT CBC WITH AUTO DIFFERENTIAL Routine 10/12/2021 6:41 AM CDT BASIC METABOLIC PANEL Routine 10/12/2021 6:41 AM CDT POCT GLUCOSE DEVICE Routine 10/12/2021 6 :03 AM CDT EGFR Routine 10/11/2021 6:01 AM CDT DIFFERENTIAL AUTO Routine 10/11/2021 6:0 1 AM CDT CBC WITH AUTO DIFFERENTIAL Routine 10/11/2021 6:01 AM CDT BASIC METABOLIC PANEL Routine 10/11/2021 6:01 AM CDT EGFR Routine 10/10/2021 6:49 AM CDT DIFFERENTIAL AUTO Routine 10/10/2021 6:4 9 AM CDT CBC WITH AUTO DIFFERENTIAL Routine 10/10/2021 6:49 AM CDT BASIC METABOLIC PANEL Routine 10/10/2021 6:49 AM CDT POCT GLUCOSE DEVICE Routine 10/10/2021 6 :40 AM CDT POCT GLUCOSE DEVICE Routine 10/09/2021 6 :25 AM CDT EGFR Routine 10/09/2021 6:15 AM CDT DIFFERENTIAL AUTO Routine 10/09/2021 6:1 5 AM CDT CBC WITH AUTO DIFFERENTIAL Routine 10/09/2021 6:15 AM CDT BASIC METABOLIC PANEL Routine 10/09/2021 6:15 AM CDT XR HIP RIGHT 2 OR 3 VIEWS IP Routine 10/08/2021 11:03 AM CDT FL FLUOROSCOPY < 1 HOUR IP Routine 10/08/2021 11:02 AM CDT INTRAMEDULLARY NAILING FEMUR 10/08/2021 10:07 AM CDT RIGHT HIP PAIN PROTIME-INR STAT 10/08/2021 3:37 AM CDT DIFFERENTIAL AUTO Routine 10/08/2021 2:4 6 AM CDT CBC WITH AUTO DIFFERENTIAL Routine 10/08/2021 2:46 AM CDT EGFR Routine 10/08/2021 2:41 AM CDT BASIC METABOLIC PANEL Routine 10/08/2021 2:[address] HIP RIGHT WO CONTRAST IP Routine 10/07/2021 2:[address] HEAD WO CONTRAST ED Urgent/IP Urgent 10/07/2021 10:15 AM CDT XR HIPS BILATERAL W PELVIS 2 VIEW ED Urgent/IP Urgent 10/07/2021 9:59 AM CDT ADD ON LAB TEST Add-On 10/07/2021 7:45 AM CDT EGFR Routine 10/07/2021 6:30 AM CDT DIFFERENTIAL AUTO Routine 10/07/2021 6:3 0 AM CDT CBC WITH AUTO DIFFERENTIAL Routine 10/07/2021 6:30 AM CDT MAGNESIUM Routine 10/07/2021 6:30 AM CDT BASIC METABOLIC PANEL Routine 10/07/2021 6:30 AM CDT EGFR Routine 10/06/2021 6:39 AM CDT DIFFERENTIAL AUTO Routine 10/06/2021 6:3 9 AM CDT CBC WITH AUTO DIFFERENTIAL Routine 10/06/2021 6:39 AM CDT BASIC METABOLIC PANEL Routine 10/06/2021 6:39 AM CDT MRSA ONLY (STAPHYLOCOCCUS AUREUS) PCR Routine 10/05/2021 12:00 PM CDT ADD ON LAB TEST Add-On 10/05/2021 11:45 AM CDT EGFR Routine 10/05/2021 5:44 AM CDT DIFFERENTIAL AUTO Routine 10/05/2021 5:4 4 AM CDT PROCALCITONIN Routine 10/05/2021 5:44 AM CDT CBC WITH AUTO DIFFERENTIAL Routine 10/05/2021 5:44 AM CDT BASIC METABOLIC PANEL Routine 10/05/2021 5:44 AM CDT ADD ON LAB TEST Add-On 10/04/2021 3:53 PM CDT TROPONIN T HIGH-SENSITIVITY 2-HOUR Timed 10/04/2021 3:18 PM CDT LA CRITICAL CARE ILL/INJURED PATIENT INIT 30-74 MIN Routine 10/04/2021 3:12 PM CDT BLOOD GAS, VENOUS STAT 10/04/2021 2:5 1 PM CDT SEPSIS LACTATE WITH REFLEX STAT 10/04/2021 2:21 PM CDT BLOOD CULTURE STAT 10/04/2021 2:21 PM CDT BLOOD CULTURE STAT 10/04/2021 2:21 PM CDT XR CHEST PA LATERAL 2 VIEWS ED 10/04/2021 2:[address] HEAD WO CONTRAST ED 10/04/2021 1 :58 PM CDT URINALYSIS AND REFLEX TO MICROSCOPIC AND CULTURE STAT 10/04/2021 1:24 PM CDT ECG 12-LEAD STAT 10/04/2021 1:23 PM CDT TROPONIN T HIGH-SENSITIVITY SERIES (BASELINE, 2HR, 4HR, 6HR) STAT 10/04/2021 1:22 PM CDT INFLUENZA A/B, RSV, AND COVID-19 PCR Routine 10/04/2021 1:22 PM CDT EGFR STAT 10/04/2021 1:22 PM CDT DIFFERENTIAL AUTO STAT 10/04/2021 1:2 2 PM CDT RESPIRATORY PATHOGEN PANEL Routine 10/04/2021 1:22 PM CDT CBC WITH AUTO DIFFERENTIAL STAT 10/04/2021 1:22 PM CDT PHOSPHORUS STAT 10/04/2021 1:22 PM CDT MAGNESIUM STAT 10/04/2021 1:22 PM CDT COMPREHENSIVE METABOLIC PANEL STAT 10/04/2021 1:22 PM CDT documented in this encounter Results * POCT glucose (10/28/2021 5:55 AM CDT) Glucose, POC 90 70 - 140 mg/dL [facility] Comment: For Glucose values <35 mg/dl when Hematocrit is >60 mg/dl,the test may not accurately detect significant hypoglycemia,and testing in the Laboratory should be considered if clinically indicated. Blood 10/28/2021 5:55 AM CDT 10/28/2021 5:55 AM CDT Maikol Acosta MD LAB POCT ORDERABLES - DEV ICE Final Result Performing Organization Address [facility] de Phone Number [facility] [address] [place] [email or web address] [place], [place] [id number] * POCT glucose (10/27/2021 6:08 AM CDT) Glucose, POC 90 70 - 140 mg/dL [facility] Comment: For Glucose values <35 mg/dl when Hematocrit is >60 mg/dl,the test may not accurately detect significant hypoglycemia,and testing in the Laboratory should be considered if clinically indicated. Blood 10/27/2021 6:08 AM CDT 10/27/2021 6:08 AM CDT Max Cunningahm MD LAB POCT ORDERABLES - DEVICE Final Result Performing Organization Address [facility] de Phone Number [facility] [address] [facility] [place] [address] * eGFR (10/26/2021 6:27 AM CDT) Pathologist [facility] eGFR 95 mL/min/1. 73 m2 [facility] Comment: Interpretive Data Reference Interval [...] interpretive data was last reviewed 2021. Blood 10/26/2021 6:27 AM CDT 10/26/2021 7:09 AM CDT us Max Cunningham MD LAB BLOOD ORDERABLES Final Re sult [facility] [address] Department [place] [address] * Differential, auto (10/26/2021 6:27 AM CDT) Neutrophil abs 2.6 1.7 - 6.5 K/cumm [facility] Imm gran abs 0.0 0.0 - 0.1 K/cumm [facility] Lymphocyte abs 1.6 0.8 - 3.3 K/cumm [facility] Monocyte abs 0.4 0.2 - 0.8 K/cumm [facility] Eosinophil abs 0.1 0.0 - 0.5 K/cumm [facility] Basophil abs 0.0 0.0 - 0.1 K/cumm [facility] Neutrophil pct 54.5 % [facility] Comment: Interpretive Data Percent cell count reference ranges are not reported, since discordance with absolute values may lead to misinterpretation of CBC data. Current Interpretive Data was last revised on 2017. Imm gran pct 0.2 % [facility] Comment: Interpretive Data Percent cell count reference ranges are not reported, since discordance with absolute values may lead to misinterpretation of CBC data. Current Interpretive Data was last revised on 2017. Lymphocyte pct 33.2 % [facility] Comment: Interpretive Data Percent cell count reference ranges are not reported, since discordance with absolute values may lead to misinterpretation of CBC data. Current Interpretive Data was last revised on 2017. Monocyte pct 8.8 % [facility] Comment: Interpretive Data Percent cell count reference ranges are not reported, since discordance with absolute values may lead to misinterpretation of CBC data. Current Interpretive Data was last revised on 2017. Eosinophil pct 2.5 % [facility] Comment: Interpretive Data Percent cell count reference ranges are not reported, since discordance with absolute values may lead to misinterpretation of CBC data. Current Interpretive Data was last revised on 2017. Basophil pct 0.8 % [facility] Comment: Interpretive Data Percent cell count reference ranges are not reported, since discordance with absolute values may lead to misinterpretation of CBC data. Current Interpretive Data was last revised on 2017. Blood 10/26/2021 6:27 AM CDT 10/26/2021 7:07 AM CDT Max Cunningham MD LAB BLOOD ORDERABLES Final Re sult [facility] [address] Department [place] [address] * (ABNORMAL) CBC with auto differential (10/26/2021 6:27 AM CDT) WBC 4.8 3.8 - 9.9 K/cumm [facility] Hgb 11.0(L) 13.0 - 17.5 g/dL [facility] Hct 33.7(L) 38.9 - 50.3 % [facility] Plt 192 150 - 400 K/cumm [facility] MPV 10.3 9.1 - 12.3 fL [facility] RBC 3.56(L) 4.30 - 5.80 M/cumm [facility] MCV 94.7 81.3 - 96.4 fL [facility] MCH 30.9 27.1 - 33.3 pg [facility] MCHC 32.6 32.3 - 35.7 g/dL [facility] RDW CV 15.0(H) 11.1 - 14.9 % [facility] RDW SD 51.2(H) 35.7 - 48.1 fL [facility] NRBC abs 0.00 0.00 - 0.01 K/cumm [facility] Blood 10/26/2021 6:27 AM CDT 10/26/2021 7:07 AM CDT Max Cunningham MD LAB BLOOD ORDERABLES Final Re sult Performing Organization Address City/[facility]/ZIP Co de Phone Number [facility] [address] Department [facility] [place] [address] * Magnesium (10/26/2021 6:27 AM CDT) [facility] Magnesium 1.8 1.4 - 2.5 mg/dL [facility] Blood 10/26/2021 6:27 AM CDT 10/26/2021 7:09 AM CDT Max Cunningham MD LAB BLOOD ORDERABLES Final Re sult Performing Organization Address City/[facility]/ZIP Co de Phone Number [facility] [address] Department [place] [address] * (ABNORMAL) Renal function panel (10/26/2021 6:27 AM CDT) Pathologist [facility] Sodium 137 135 - 145 mmol/L [facility] Potassium, pl 3.6 3.3 - 4.9 mmol/L [facility] Chloride 102 97 - 110 mmol/L [facility] CO2 27 22 - 32 mmol/L [facility] Anion gap 8 2 - 15 mmol/L [facility] BUN 14 8 - 25 mg/dL [facility] Creatinine 0.80 0.80 - 1.30 mg/dL [facility] Glucose 85 70 - 199 mg/dL [facility] Comment: Interpretive Data Fasting glucose [...] classification and Diagnosis of Diabetes Diabetes Care 2017;40 (Suppl. 1):S11. Current interpretive data was last revised 2017. Calcium 8.9 8.5 - 10.3 mg/dL [facility] Phosphorus, pl 3.3 2.3 - 4.5 mg/dL [facility] Albumin 3.2(L) 3.5 - 5.0 g/dL [facility] Blood 10/26/2021 6:27 AM CDT 10/26/2021 7:09 AM CDT us Max Cunningham MD LAB BLOOD ORDERABLES Final Re sult [facility] [address] Department [place] [address] * POCT glucose (10/26/2021 6:06 AM CDT) Glucose, POC 87 70 - 140 mg/dL [facility] Comment: For Glucose values <35 mg/dl when Hematocrit is >60 mg/dl,the test may not accurately detect significant hypoglycemia,and testing in the Laboratory should be considered if clinically indicated. Blood 10/26/2021 6:06 AM CDT 10/26/2021 6:06 AM CDT us Max Cunningham MD LAB POCT ORDERABLES - DEVICE Final Result Performing Organization Address [facility] Co de Phone Number [facility] [facility] [address] [facility] [place], [place] [id number] * POCT glucose (10/25/2021 6:08 AM CDT) Glucose, POC 86 70 - 140 mg/dL [facility] Comment: For Glucose values <35 mg/dl when Hematocrit is >60 mg/dl,the test may not accurately detect significant hypoglycemia,and testing in the Laboratory should be considered if clinically indicated. Blood 10/25/2021 6:08 AM CDT 10/25/2021 6:08 AM CDT us Max Cunningham MD LAB POCT ORDERABLES - DEVICE Final Result Performing Organization Address [facility] de Phone Number [facility] [address] [facility] [place] [address] * POCT glucose (10/24/2021 6:08 AM CDT) Glucose, POC 82 70 - 140 mg/dL [facility] Comment: For Glucose values <35 mg/dl when Hematocrit is >60 mg/dl,the test may not accurately detect significant hypoglycemia,and testing in the Laboratory should be considered if clinically indicated. Blood 10/24/2021 6:08 AM CDT 10/24/2021 6:08 AM CDT Max Cunningham MD LAB POCT ORDERABLES - DEVICE Final Result Performing Organization Address [facility] Co de Phone Number [facility] [address] [facility] [place], [place] [id number] * XR Pelvis Ortho View (10/23/2021 11:06 AM CDT) Anatomical Region Laterality Modality Body, Pelvis N/A Computed Radiogr aphy 10/23/2021 11:2 3 AM CDT Impressions 10/23/2021 11:23 AM CDT Interval internal fixation for a right comminuted intertrochanteric fracture in near-anatomic alignment Electronically signed by: Sharmaine John M.D. Narrative 10/23/2021 11:23 AM CDT EXAMINATION: XR PELVIS ORTHO VIEW HISTORY: Femur fracture. COMPARISON: 10/08/2021. FINDINGS: Prior internal fixation of the left femur. ??There has been interval fixation of the proximal right femur for an intertrochanteric fracture. ??The hip is in near anatomic alignment. ??Fracture lines are no new fractures. ??Mild vascular calcification. ??No destructive osseous lesions. Procedure Note Sharmaine John MD - 10/23/2021 EXAMINATION: XR PELVIS ORTHO VIEW HISTORY: Femur fracture. COMPARISON: 10/08/2021. FINDINGS: Prior internal fixation of the left femur. There has been interval fixation of the proximal right femur for an intertrochanteric fracture. The hip is in near anatomic alignment. Fracture lines are no new fractures. Mild vascular calcification. No destructive osseous lesions. IMPRESSION: Interval internal fixation for a right comminuted intertrochanteric fracture in near-anatomic alignment Electronically signed by: Sharmaine John M.D. Miguel Flores MD IMG XR PROCEDURES Final Result * POCT glucose (10/23/2021 6:11 AM CDT) [facility] Signature Glucose, POC 84 70 - 140 mg/dL [facility] Comment: For Glucose values <35 mg/dl when Hematocrit is >60 mg/dl,the test may not accurately detect significant hypoglycemia,and testing in the Laboratory should be considered if clinically indicated. Blood 10/23/2021 6:11 AM CDT 10/23/2021 6:11 AM CDT Max Cunningham MD LAB POCT ORDERABLES - DEVICE Final Result [facility] [address] Department [place] [address] * POCT glucose (10/22/2021 6:13 AM CDT) Glucose, POC 96 70 - 140 mg/dL [facility] Comment: For Glucose values <35 mg/dl when Hematocrit is >60 mg/dl,the test may not accurately detect significant hypoglycemia,and testing in the Laboratory should be considered if clinically indicated. Blood 10/22/2021 6:13 AM CDT 10/22/2021 6:13 AM CDT us Max Cunningham MD LAB POCT ORDERABLES - DEVICE Final Result Performing Organization Address [facility] Co de Phone Number [facility] [address] [facility] [place] [address] * POCT glucose (10/21/2021 5:58 AM CDT) Glucose, POC 85 70 - 140 mg/dL [facility] Comment: For Glucose values <35 mg/dl when Hematocrit is >60 mg/dl,the test may not accurately detect significant hypoglycemia,and testing in the Laboratory should be considered if clinically indicated. Blood 10/21/2021 5:58 AM CDT 10/21/2021 5:58 AM CDT us Max Cunningham MD LAB POCT ORDERABLES - DEVICE Final Result Performing Organization Address [facility] Co de Phone Number [facility] [address] [facility] [place] [address] * POCT glucose (10/20/2021 5:50 AM CDT) Glucose, POC 83 70 - 140 mg/dL [facility] Comment: For Glucose values <35 mg/dl when Hematocrit is >60 mg/dl,the test may not accurately detect significant hypoglycemia,and testing in the Laboratory should be considered if clinically indicated. Blood 10/20/2021 5:50 AM CDT 10/20/2021 5:50 AM CDT Jennifer Gao MD LAB POCT ORDERABLES - DEVICE Fin al Result Performing Organization Address [facility] Co de Phone Number [facility] [address] [place] [email or web address] [place], [place] [id number] * eGFR (10/19/2021 6:37 AM CDT) eGFR 97 mL/min/1. 73 m2 [facility] Comment: Interpretive Data Reference Interval [...] interpretive data was last reviewed 2021. Blood 10/19/2021 6:37 AM CDT 10/19/2021 6:55 AM CDT us Miguel Flores MD LAB BLOOD ORDERABLES Fi nal Result Performing Organization Address [facility] Co de Phone Number [facility] [address] Department [facility] [place] [address] * Differential, auto (10/19/2021 6:37 AM CDT) Neutrophil abs 4.1 1.7 - 6.5 K/cumm [facility] Imm gran abs 0.0 0.0 - 0.1 K/cumm [facility] Lymphocyte abs 1.6 0.8 - 3.3 K/cumm [facility] Monocyte abs 0.4 0.2 - 0.8 K/cumm [facility] Eosinophil abs 0.1 0.0 - 0.5 K/cumm [facility] Basophil abs 0.0 0.0 - 0.1 K/cumm [facility] Neutrophil pct 65.5 % [facility] Comment: Interpretive Data Percent cell count reference ranges are not reported, since discordance with absolute values may lead to misinterpretation of CBC data. Current Interpretive Data was last revised on 2017. Imm gran pct 0.3 % [facility] Comment: Interpretive Data Percent cell count reference ranges are not reported, since discordance with absolute values may lead to misinterpretation of CBC data. Current Interpretive Data was last revised on 2017. Lymphocyte pct 26.1 % [facility] Comment: Interpretive Data Percent cell count reference ranges are not reported, since discordance with absolute values may lead to misinterpretation of CBC data. Current Interpretive Data was last revised on 2017. Monocyte pct 6.0 % [facility] Comment: Interpretive Data Percent cell count reference ranges are not reported, since discordance with absolute values may lead to misinterpretation of CBC data. Current Interpretive Data was last revised on 2017. Eosinophil pct 1.6 % [facility] Comment: Interpretive Data Percent cell count reference ranges are not reported, since discordance with absolute values may lead to misinterpretation of CBC data. Current Interpretive Data was last revised on 2017. Basophil pct 0.5 % [facility] Comment: Interpretive Data Percent cell count reference ranges are not reported, since discordance with absolute values may lead to misinterpretation of CBC data. Current Interpretive Data was last revised on 2017. Blood 10/19/2021 6:37 AM CDT 10/19/2021 6:54 AM CDT Miguel Flores MD LAB BLOOD ORDERABLES Fi nal Result Performing Organization Address [facility] Co de Phone Number [facility] [address] [email or web address] [address] * (ABNORMAL) CBC with auto differential (10/19/2021 6:37 AM CDT) WBC 6.2 3.8 - 9.9 K/cumm [facility] Hgb 10.5(L) 13.0 - 17.5 g/dL [facility] Hct 33.3(L) 38.9 - 50.3 % [facility] Plt 176 150 - 400 K/cumm [facility] MPV 10.0 9.1 - 12.3 fL [facility] RBC 3.45(L) 4.30 - 5.80 M/cumm [facility] MCV 96.5(H) 81.3 - 96.4 fL [facility] MCH 30.4 27.1 - 33.3 pg [facility] MCHC 31.5(L) 32.3 - 35.7 g/dL [facility] RDW CV 14.4 11.1 - 14.9 % [facility] RDW SD 48.2(H) 35.7 - 48.1 fL [facility] NRBC abs 0.00 0.00 - 0.01 K/cumm [facility] Blood 10/19/2021 6:37 AM CDT 10/19/2021 6:54 AM CDT Miguel Flores MD LAB BLOOD ORDERABLES Fi nal Result Performing Organization Address [facility]/ZIP Co de Phone Number [facility] [address] [email or web address] [address] * (ABNORMAL) Basic metabolic panel (10/19/2021 6:37 AM CDT) Sodium 140 135 - 145 mmol/L [facility] Potassium, pl 3.8 3.3 - 4.9 mmol/L [facility] Chloride 105 97 - 110 mmol/L [facility] CO2 25 22 - 32 mmol/L [facility] Anion gap 10 2 - 15 mmol/L [facility] BUN 18 8 - 25 mg/dL [facility] Creatinine 0.76(L) 0.80 - 1.30 mg/dL [facility] Glucose 87 70 - 199 mg/dL [facility] Comment: Interpretive Data Fasting glucose [...] classification and Diagnosis of Diabetes Diabetes Care 2017;40 (Suppl. 1):S11. Current interpretive data was last revised 2017. Calcium 8.6 8.5 - 10.3 mg/dL [facility] Blood 10/19/2021 6:37 AM CDT 10/19/2021 6:55 AM CDT Miguel Florse MD LAB BLOOD ORDERABLES nal Result [facility] [address] Department [place] [address] * eGFR (10/18/2021 7:34 AM CDT) eGFR 97 mL/min/1. 73 m2 [facility] Comment: Interpretive Data Reference Interval [...] interpretive data was last reviewed 2021. Blood 10/18/2021 7:34 AM CDT 10/18/2021 7:57 AM CDT us Miguel Flores MD LAB BLOOD ORDERABLES Fi nal Result [facility] [address] Department [place] [address] * Differential, auto (10/18/2021 7:34 AM CDT) Neutrophil abs 3.5 1.7 - 6.5 K/cumm [facility] Imm gran abs 0.0 0.0 - 0.1 K/cumm [facility] Lymphocyte abs 1.6 0.8 - 3.3 K/cumm [facility] Monocyte abs 0.3 0.2 - 0.8 K/cumm [facility] Eosinophil abs 0.1 0.0 - 0.5 K/cumm [facility] Basophil abs 0.0 0.0 - 0.1 K/cumm [facility] Neutrophil pct 62.9 % [facility] Comment: Interpretive Data Percent cell count reference ranges are not reported, since discordance with absolute values may lead to misinterpretation of CBC data. Current Interpretive Data was last revised on 2017. Imm gran pct 0.5 % [facility] Comment: Interpretive Data Percent cell count reference ranges are not reported, since discordance with absolute values may lead to misinterpretation of CBC data. Current Interpretive Data was last revised on 2017. Lymphocyte pct 28.5 % [facility] Comment: Interpretive Data Percent cell count reference ranges are not reported, since discordance with absolute values may lead to misinterpretation of CBC data. Current Interpretive Data was last revised on 2017. Monocyte pct 5.5 % [facility] Comment: Interpretive Data Percent cell count reference ranges are not reported, since discordance with absolute values may lead to misinterpretation of CBC data. Current Interpretive Data was last revised on 2017. Eosinophil pct 2.1 % [facility] Comment: Interpretive Data Percent cell count reference ranges are not reported, since discordance with absolute values may lead to misinterpretation of CBC data. Current Interpretive Data was last revised on 2017. Basophil pct 0.5 % [facility] Comment: Interpretive Data Percent cell count reference ranges are not reported, since discordance with absolute values may lead to misinterpretation of CBC data. Current Interpretive Data was last revised on 2017. Blood 10/18/2021 7:34 AM CDT 10/18/2021 7:58 AM CDT Miguel Flores MD LAB BLOOD ORDERABLES nal Result [facility] [address] Department [place] [address] * (ABNORMAL) CBC with auto differential (10/18/2021 7:34 AM CDT) WBC 5.6 3.8 - 9.9 K/cumm [facility] Hgb 10.3(L) 13.0 - 17.5 g/dL [facility] Hct 30.9(L) 38.9 - 50.3 % [facility] Plt 194 150 - 400 K/cumm [facility] MPV 9.8 9.1 - 12.3 fL [facility] RBC 3.31(L) 4.30 - 5.80 M/cumm [facility] MCV 93.4 81.3 - 96.4 fL [facility] MCH 31.1 27.1 - 33.3 pg [facility] MCHC 33.3 32.3 - 35.7 g/dL [facility] RDW CV 13.9 11.1 - 14.9 % [facility] RDW SD 46.2 35.7 - 48.1 fL [facility] NRBC abs 0.00 0.00 - 0.01 K/cumm [facility] Blood 10/18/2021 7:34 AM CDT 10/18/2021 7:58 AM CDT us Miguel Flores MD LAB BLOOD ORDERABLES Fi nal Result [facility] [address] Department [place] [address] * (ABNORMAL) Basic metabolic panel (10/18/2021 7:34 AM CDT) Sodium 141 135 - 145 mmol/L [facility] Potassium, pl 4.1 3.3 - 4.9 mmol/L [facility] Chloride 107 97 - 110 mmol/L [facility] CO2 27 22 - 32 mmol/L [facility] Anion gap 7 2 - 15 mmol/L [facility] BUN 14 8 - 25 mg/dL [facility] Creatinine 0.74(L) 0.80 - 1.30 mg/dL [facility] Glucose 88 70 - 199 mg/dL [facility] Comment: Interpretive Data Fasting glucose [...] classification and Diagnosis of Diabetes Diabetes Care 2017;40 (Suppl. 1):S11. Current interpretive data was last revised 2017. Calcium 8.5 8.5 - 10.3 mg/dL [facility] Blood 10/18/2021 7:34 AM CDT 10/18/2021 7:57 AM CDT Miguel Flores MD LAB BLOOD ORDERABLES Fi nal Result Performing Organization Address [facility] Co de Phone Number [facility] [address] Department [facility] [place] [address] * eGFR (10/16/2021 6:13 AM CDT) eGFR 100 mL/min/1. 73 m2 [facility] Comment: Interpretive Data Reference Interval [...] interpretive data was last reviewed 2021. Blood 10/16/2021 6:13 AM CDT 10/16/2021 6:40 AM CDT Miguel Flores MD LAB BLOOD ORDERABLES Fi nal Result Performing Organization Address [facility] de Phone Number [facility] [address] Department [place] [address] * Differential, auto (10/16/2021 6:13 AM CDT) Neutrophil abs 4.3 1.7 - 6.5 K/cumm [facility] Imm gran abs 0.0 0.0 - 0.1 K/cumm [facility] Lymphocyte abs 1.8 0.8 - 3.3 K/cumm [facility] Monocyte abs 0.5 0.2 - 0.8 K/cumm [facility] Eosinophil abs 0.1 0.0 - 0.5 K/cumm [facility] Basophil abs 0.0 0.0 - 0.1 K/cumm [facility] Neutrophil pct 63.9 % [facility] Comment: Interpretive Data Percent cell count reference ranges are not reported, since discordance with absolute values may lead to misinterpretation of CBC data. Current Interpretive Data was last revised on 2017. Imm gran pct 0.4 % [facility] Comment: Interpretive Data Percent cell count reference ranges are not reported, since discordance with absolute values may lead to misinterpretation of CBC data. Current Interpretive Data was last revised on 2017. Lymphocyte pct 27.2 % [facility] Comment: Interpretive Data Percent cell count reference ranges are not reported, since discordance with absolute values may lead to misinterpretation of CBC data. Current Interpretive Data was last revised on 2017. Monocyte pct 6.8 % [facility] Comment: Interpretive Data Percent cell count reference ranges are not reported, since discordance with absolute values may lead to misinterpretation of CBC data. Current Interpretive Data was last revised on 2017. Eosinophil pct 1.3 % [facility] Comment: Interpretive Data Percent cell count reference ranges are not reported, since discordance with absolute values may lead to misinterpretation of CBC data. Current Interpretive Data was last revised on 2017. Basophil pct 0.4 % [facility] Comment: Interpretive Data Percent cell count reference ranges are not reported, since discordance with absolute values may lead to misinterpretation of CBC data. Current Interpretive Data was last revised on 2017. Blood 10/16/2021 6:13 AM CDT 10/16/2021 6:40 AM CDT Miguel Flores MD LAB BLOOD ORDERABLES Fi nal Result Performing Organization Address [facility] Co de Phone Number [facility] [address] Department of [employer] [place], [place] [id number] * (ABNORMAL) CBC with auto differential (10/16/2021 6:13 AM CDT) Pathologist [facility] WBC 6.7 3.8 - 9.9 K/cumm [facility] Hgb 9.2(L) 13.0 - 17.5 g/dL [facility] Hct 28.0(L) 38.9 - 50.3 % [facility] Plt 173 150 - 400 K/cumm [facility] MPV 10.0 9.1 - 12.3 fL [facility] RBC 2.98(L) 4.30 - 5.80 M/cumm [facility] MCV 94.0 81.3 - 96.4 fL [facility] MCH 30.9 27.1 - 33.3 pg [facility] MCHC 32.9 32.3 - 35.7 g/dL [facility] RDW CV 13.4 11.1 - 14.9 % [facility] RDW SD 45.3 35.7 - 48.1 fL [facility] NRBC abs 0.00 0.00 - 0.01 K/cumm [facility] Blood 10/16/2021 6:13 AM CDT 10/16/2021 6:40 AM CDT Miguel Flores MD LAB BLOOD ORDERABLES Fi nal Result [facility] [address] Department of [employer] [place], [place] [id number] * (ABNORMAL) Basic metabolic panel (10/16/2021 6:13 AM CDT) Pathologist [facility] Sodium 140 135 - 145 mmol/L [facility] Potassium, pl 3.5 3.3 - 4.9 mmol/L [facility] Chloride 106 97 - 110 mmol/L [facility] CO2 27 22 - 32 mmol/L [facility] Anion gap 7 2 - 15 mmol/L [facility] BUN 15 8 - 25 mg/dL [facility] Creatinine 0.69(L) 0.80 - 1.30 mg/dL [facility] Glucose 88 70 - 199 mg/dL [facility] Comment: Interpretive Data Fasting glucose [...] classification and Diagnosis of Diabetes Diabetes Care 2017;40 (Suppl. 1):S11. Current interpretive data was last revised 2017. Calcium 8.2(L) 8.5 - 10.3 mg/dL [facility] Blood 10/16/2021 6:13 AM CDT 10/16/2021 6:40 AM CDT Miguel Flores MD LAB BLOOD ORDERABLES Fi nal Result [facility] [address] Department [place] [address] * eGFR (10/15/2021 10:30 AM CDT) eGFR 104 mL/min/1. 73 m2 [facility] Comment: Interpretive Data Reference Interval [...] interpretive data was last reviewed 2021. Blood 10/15/2021 10:3 0 AM CDT 10/15/2021 10:34 AM CDT Miguel Flores MD LAB BLOOD ORDERABLES nal Result [facility] [address] Department [place] [address] * Differential, auto (10/15/2021 10:30 AM CDT) Neutrophil abs 4.0 1.7 - 6.5 K/cumm [facility] Imm gran abs 0.0 0.0 - 0.1 K/cumm [facility] Lymphocyte abs 1.2 0.8 - 3.3 K/cumm [facility] Monocyte abs 0.4 0.2 - 0.8 K/cumm [facility] Eosinophil abs 0.1 0.0 - 0.5 K/cumm [facility] Basophil abs 0.0 0.0 - 0.1 K/cumm [facility] Neutrophil pct 70.6 % [facility] Comment: Interpretive Data Percent cell count reference ranges are not reported, since discordance with absolute values may lead to misinterpretation of CBC data. Current Interpretive Data was last revised on 2017. Imm gran pct 0.5 % [facility] Comment: Interpretive Data Percent cell count reference ranges are not reported, since discordance with absolute values may lead to misinterpretation of CBC data. Current Interpretive Data was last revised on 2017. Lymphocyte pct 20.5 % [facility] Comment: Interpretive Data Percent cell count reference ranges are not reported, since discordance with absolute values may lead to misinterpretation of CBC data. Current Interpretive Data was last revised on 2017. Monocyte pct 6.4 % [facility] Comment: Interpretive Data Percent cell count reference ranges are not reported, since discordance with absolute values may lead to misinterpretation of CBC data. Current Interpretive Data was last revised on 2017. Eosinophil pct 1.6 % [facility] Comment: Interpretive Data Percent cell count reference ranges are not reported, since discordance with absolute values may lead to misinterpretation of CBC data. Current Interpretive Data was last revised on 2017. Basophil pct 0.4 % [facility] Comment: Interpretive Data Percent cell count reference ranges are not reported, since discordance with absolute values may lead to misinterpretation of CBC data. Current Interpretive Data was last revised on 2017. Blood 10/15/2021 10:3 0 AM CDT 10/15/2021 10:34 AM CDT Miguel Flores MD LAB BLOOD ORDERABLES Fi nal Result [facility] [address] Department of Laboratories [place], [place] [id number] * (ABNORMAL) CBC with auto differential (10/15/2021 10:30 AM CDT) WBC 5.7 3.8 - 9.9 K/cumm [facility] Hgb 10.4(L) 13.0 - 17.5 g/dL [facility] Hct 30.5(L) 38.9 - 50.3 % [facility] Plt 167 150 - 400 K/cumm [facility] MPV 10.2 9.1 - 12.3 fL [facility] RBC 3.30(L) 4.30 - 5.80 M/cumm [facility] MCV 92.4 81.3 - 96.4 fL [facility] MCH 31.5 27.1 - 33.3 pg [facility] MCHC 34.1 32.3 - 35.7 g/dL [facility] RDW CV 13.4 11.1 - 14.9 % [facility] RDW SD 45.0 35.7 - 48.1 fL [facility] NRBC abs 0.00 0.00 - 0.01 K/cumm [facility] Blood 10/15/2021 10:3 0 AM CDT 10/15/2021 10:34 AM CDT us Miguel Flores MD LAB BLOOD ORDERABLES Fi nal Result [facility] [address] Department [place] [address] * (ABNORMAL) Basic metabolic panel (10/15/2021 10:30 AM CDT) Sodium 139 135 - 145 mmol/L [facility] Potassium, pl 3.8 3.3 - 4.9 mmol/L [facility] Chloride 105 97 - 110 mmol/L [facility] CO2 26 22 - 32 mmol/L [facility] Anion gap 8 2 - 15 mmol/L [facility] BUN 11 8 - 25 mg/dL [facility] Creatinine 0.59(L) 0.80 - 1.30 mg/dL [facility] Glucose 142 70 - 199 mg/dL [facility] Comment: Interpretive Data Fasting glucose [...] classification and Diagnosis of Diabetes Diabetes Care 2017;40 (Suppl. 1):S11. Current interpretive data was last revised 2017. Calcium 8.4(L) 8.5 - 10.3 mg/dL [facility] Blood 10/15/2021 10:3 0 AM CDT 10/15/2021 10:34 AM CDT Miguel Flores MD LAB BLOOD ORDERABLES Fi nal Result Performing Organization Address [facility] de Phone Number [facility] [address] Department [place] [address] * eGFR (10/14/2021 7:00 AM CDT) eGFR 103 mL/min/1. 73 m2 [facility] Comment: Interpretive Data Reference Interval [...] interpretive data was last reviewed 2021. Blood 10/14/2021 7:00 AM CDT 10/14/2021 7:19 AM CDT Miguel Flores MD LAB BLOOD ORDERABLES Fi nal Result Performing Organization Address [facility] Co de Phone Number [facility] [address] Department [place] [address] * Differential, auto (10/14/2021 7:00 AM CDT) Neutrophil abs 2.4 1.7 - 6.5 K/cumm [facility] Imm gran abs 0.0 0.0 - 0.1 K/cumm [facility] Lymphocyte abs 1.3 0.8 - 3.3 K/cumm [facility] Monocyte abs 0.5 0.2 - 0.8 K/cumm [facility] Eosinophil abs 0.1 0.0 - 0.5 K/cumm [facility] Basophil abs 0.0 0.0 - 0.1 K/cumm [facility] Neutrophil pct 55.5 % [facility] Comment: Interpretive Data Percent cell count reference ranges are not reported, since discordance with absolute values may lead to misinterpretation of CBC data. Current Interpretive Data was last revised on 2017. Imm gran pct 0.9 % [facility] Comment: Interpretive Data Percent cell count reference ranges are not reported, since discordance with absolute values may lead to misinterpretation of CBC data. Current Interpretive Data was last revised on 2017. Lymphocyte pct 30.0 % [facility] Comment: Interpretive Data Percent cell count reference ranges are not reported, since discordance with absolute values may lead to misinterpretation of CBC data. Current Interpretive Data was last revised on 2017. Monocyte pct 10.8 % [facility] Comment: Interpretive Data Percent cell count reference ranges are not reported, since discordance with absolute values may lead to misinterpretation of CBC data. Current Interpretive Data was last revised on 2017. Eosinophil pct 2.3 % [facility] Comment: Interpretive Data Percent cell count reference ranges are not reported, since discordance with absolute values may lead to misinterpretation of CBC data. Current Interpretive Data was last revised on 2017. Basophil pct 0.5 % [facility] Comment: Interpretive Data Percent cell count reference ranges are not reported, since discordance with absolute values may lead to misinterpretation of CBC data. Current Interpretive Data was last revised on 2017. Blood 10/14/2021 7:00 AM CDT 10/14/2021 7:19 AM CDT Miguel Flores MD LAB BLOOD ORDERABLES Fi nal Result Performing Organization Address City/[facility]/ZIP Co de Phone Number [facility] [address] [email or web address] [address] * (ABNORMAL) CBC with auto differential (10/14/2021 7:00 AM CDT) WBC 4.4 3.8 - 9.9 K/cumm [facility] Hgb 9.9(L) 13.0 - 17.5 g/dL [facility] Hct 29.8(L) 38.9 - 50.3 % [facility] Plt 159 150 - 400 K/cumm [facility] MPV 10.2 9.1 - 12.3 fL [facility] RBC 3.19(L) 4.30 - 5.80 M/cumm [facility] MCV 93.4 81.3 - 96.4 fL [facility] MCH 31.0 27.1 - 33.3 pg [facility] MCHC 33.2 32.3 - 35.7 g/dL [facility] RDW CV 13.2 11.1 - 14.9 % [facility] RDW SD 45.1 35.7 - 48.1 fL [facility] NRBC abs 0.00 0.00 - 0.01 K/cumm [facility] Blood 10/14/2021 7:00 AM CDT 10/14/2021 7:19 AM CDT Miguel Flores MD LAB BLOOD ORDERABLES Fi nal Result [facility] [address] Department [facility] [place], [place] [id number] * (ABNORMAL) Basic metabolic panel (10/14/2021 7:00 AM CDT) Sodium 140 135 - 145 mmol/L [facility] Potassium, pl 3.4 3.3 - 4.9 mmol/L [facility] Chloride 108 97 - 110 mmol/L [facility] CO2 25 22 - 32 mmol/L [facility] Anion gap 7 2 - 15 mmol/L [facility] BUN 11 8 - 25 mg/dL [facility] Creatinine 0.62(L) 0.80 - 1.30 mg/dL [facility] Glucose 85 70 - 199 mg/dL [facility] Comment: Interpretive Data Fasting glucose [...] classification and Diagnosis of Diabetes Diabetes Care 2017;40 (Suppl. 1):S11. Current interpretive data was last revised 2017. Calcium 8.2(L) 8.5 - 10.3 mg/dL [facility] Blood 10/14/2021 7:00 AM CDT 10/14/2021 7:19 AM CDT Miguel Flores MD LAB BLOOD ORDERABLES Fi nal Result [facility] [address] Department [place] [address] * POCT glucose (10/14/2021 6:41 AM CDT) Glucose, POC 83 70 - 140 mg/dL [facility] Comment: For Glucose values <35 mg/dl when Hematocrit is >60 mg/dl,the test may not accurately detect significant hypoglycemia,and testing in the Laboratory should be considered if clinically indicated. Blood 10/14/2021 6:41 AM CDT 10/14/2021 6:41 AM CDT us Saqib Donavan Rosey DO LAB POCT ORDERABLES - D EVICE Final Result Performing Organization Address [facility] de Phone Number [facility] [address] [facility] [place] [address] * POCT glucose (10/13/2021 6:37 AM CDT) Glucose, POC 84 70 - 140 mg/dL [facility] Comment: For Glucose values <35 mg/dl when Hematocrit is >60 mg/dl,the test may not accurately detect significant hypoglycemia,and testing in the Laboratory should be considered if clinically indicated. Blood 10/13/2021 6:37 AM CDT 10/13/2021 6:37 AM CDT Saqib Currie DO LAB POCT ORDERABLES - D EVICE Final Result Performing Organization Address [facility] de Phone Number [facility] [address] [facility] [place] [address] * eGFR (10/13/2021 5:12 AM CDT) eGFR 104 mL/min/1. 73 m2 [facility] Comment: Interpretive Data Reference Interval [...] interpretive data was last reviewed 2021. Blood 10/13/2021 5:12 AM CDT 10/13/2021 6:37 AM CDT us Miguel Flores MD LAB BLOOD ORDERABLES Fi nal Result [facility] [address] Department [place] [address] * Differential, auto (10/13/2021 5:12 AM CDT) Neutrophil abs 2.7 1.7 - 6.5 K/cumm [facility] Imm gran abs 0.0 0.0 - 0.1 K/cumm [facility] Lymphocyte abs 1.1 0.8 - 3.3 K/cumm [facility] Monocyte abs 0.4 0.2 - 0.8 K/cumm [facility] Eosinophil abs 0.1 0.0 - 0.5 K/cumm [facility] Basophil abs 0.0 0.0 - 0.1 K/cumm [facility] Neutrophil pct 61.6 % [facility] Comment: Interpretive Data Percent cell count reference ranges are not reported, since discordance with absolute values may lead to misinterpretation of CBC data. Current Interpretive Data was last revised on 2017. Imm gran pct 0.5 % [facility] Comment: Interpretive Data Percent cell count reference ranges are not reported, since discordance with absolute values may lead to misinterpretation of CBC data. Current Interpretive Data was last revised on 2017. Lymphocyte pct 25.1 % [facility] Comment: Interpretive Data Percent cell count reference ranges are not reported, since discordance with absolute values may lead to misinterpretation of CBC data. Current Interpretive Data was last revised on 2017. Monocyte pct 10.2 % [facility] Comment: Interpretive Data Percent cell count reference ranges are not reported, since discordance with absolute values may lead to misinterpretation of CBC data. Current Interpretive Data was last revised on 2017. Eosinophil pct 2.1 % [facility] Comment: Interpretive Data Percent cell count reference ranges are not reported, since discordance with absolute values may lead to misinterpretation of CBC data. Current Interpretive Data was last revised on 2017. Basophil pct 0.5 % [facility] Comment: Interpretive Data Percent cell count reference ranges are not reported, since discordance with absolute values may lead to misinterpretation of CBC data. Current Interpretive Data was last revised on 2017. Blood 10/13/2021 5:12 AM CDT 10/13/2021 6:36 AM CDT us Miguel Flores MD LAB BLOOD ORDERABLES Fi nal Result [facility] [address] Department [place] [address] * (ABNORMAL) CBC with auto differential (10/13/2021 5:12 AM CDT) WBC 4.3 3.8 - 9.9 K/cumm [facility] Hgb 9.3(L) 13.0 - 17.5 g/dL [facility] Hct 27.7(L) 38.9 - 50.3 % [facility] Plt 136(L) 150 - 400 K/cumm [facility] MPV 10.3 9.1 - 12.3 fL [facility] RBC 3.00(L) 4.30 - 5.80 M/cumm [facility] MCV 92.3 81.3 - 96.4 fL [facility] MCH 31.0 27.1 - 33.3 pg [facility] MCHC 33.6 32.3 - 35.7 g/dL [facility] RDW CV 13.4 11.1 - 14.9 % [facility] RDW SD 45.7 35.7 - 48.1 fL [facility] NRBC abs 0.00 0.00 - 0.01 K/cumm [facility] Blood 10/13/2021 5:12 AM CDT 10/13/2021 6:36 AM CDT Miguel Flores MD LAB BLOOD ORDERABLES Fi nal Result [facility] [address] [email or web address] [address] * (ABNORMAL) Basic metabolic panel (10/13/2021 5:12 AM CDT) Pathologist [facility] Sodium 138 135 - 145 mmol/L [facility] Potassium, pl 3.3 3.3 - 4.9 mmol/L [facility] Chloride 105 97 - 110 mmol/L [facility] CO2 25 22 - 32 mmol/L [facility] Anion gap 8 2 - 15 mmol/L [facility] BUN 10 8 - 25 mg/dL [facility] Creatinine 0.60(L) 0.80 - 1.30 mg/dL [facility] Glucose 82 70 - 199 mg/dL [facility] Comment: Interpretive Data Fasting glucose [...] classification and Diagnosis of Diabetes Diabetes Care 2017;40 (Suppl. 1):S11. Current interpretive data was last revised 2017. Calcium 8.1(L) 8.5 - 10.3 mg/dL [facility] Blood 10/13/2021 5:12 AM CDT 10/13/2021 6:37 AM CDT Miguel Flores MD LAB BLOOD ORDERABLES Fi nal Result [facility] [address] Department [facility] [place] [address] * eGFR (10/12/2021 6:41 AM CDT) eGFR 101 mL/min/1. 73 m2 [facility] Comment: Interpretive Data Reference Interval [...] interpretive data was last reviewed 2021. Blood 10/12/2021 6:41 AM CDT 10/12/2021 7:29 AM CDT us Miguel Flores MD LAB BLOOD ORDERABLES Fi nal Result [facility] [address] Department [place] [address] * Differential, auto (10/12/2021 6:41 AM CDT) Pathologist [facility] Neutrophil abs 3.0 1.7 - 6.5 K/cumm [facility] Imm gran abs 0.0 0.0 - 0.1 K/cumm [facility] Lymphocyte abs 1.0 0.8 - 3.3 K/cumm [facility] Monocyte abs 0.4 0.2 - 0.8 K/cumm [facility] Eosinophil abs 0.1 0.0 - 0.5 K/cumm [facility] Basophil abs 0.0 0.0 - 0.1 K/cumm [facility] Neutrophil pct 66.2 % [facility] Comment: Interpretive Data Percent cell count reference ranges are not reported, since discordance with absolute values may lead to misinterpretation of CBC data. Current Interpretive Data was last revised on 2017. Imm gran pct 0.2 % [facility] Comment: Interpretive Data Percent cell count reference ranges are not reported, since discordance with absolute values may lead to misinterpretation of CBC data. Current Interpretive Data was last revised on 2017. Lymphocyte pct 22.7 % [facility] Comment: Interpretive Data Percent cell count reference ranges are not reported, since discordance with absolute values may lead to misinterpretation of CBC data. Current Interpretive Data was last revised on 2017. Monocyte pct 8.1 % [facility] Comment: Interpretive Data Percent cell count reference ranges are not reported, since discordance with absolute values may lead to misinterpretation of CBC data. Current Interpretive Data was last revised on 2017. Eosinophil pct 2.6 % [facility] Comment: Interpretive Data Percent cell count reference ranges are not reported, since discordance with absolute values may lead to misinterpretation of CBC data. Current Interpretive Data was last revised on 2017. Basophil pct 0.2 % [facility] Comment: Interpretive Data Percent cell count reference ranges are not reported, since discordance with absolute values may lead to misinterpretation of CBC data. Current Interpretive Data was last revised on 2017. Blood 10/12/2021 6:41 AM CDT 10/12/2021 7:29 AM CDT us Miguel Flores MD LAB BLOOD ORDERABLES Fi nal Result [facility] [address] Department [place] [address] * (ABNORMAL) CBC with auto differential (10/12/2021 6:41 AM CDT) [facility] WBC 4.6 3.8 - 9.9 K/cumm [facility] Hgb 9.4(L) 13.0 - 17.5 g/dL [facility] Hct 28.4(L) 38.9 - 50.3 % [facility] Plt 124(L) 150 - 400 K/cumm [facility] MPV 11.3 9.1 - 12.3 fL [facility] RBC 3.01(L) 4.30 - 5.80 M/cumm [facility] MCV 94.4 81.3 - 96.4 fL [facility] MCH 31.2 27.1 - 33.3 pg [facility] MCHC 33.1 32.3 - 35.7 g/dL [facility] RDW CV 13.4 11.1 - 14.9 % [facility] RDW SD 46.4 35.7 - 48.1 fL [facility] NRBC abs 0.00 0.00 - 0.01 K/cumm [facility] Blood 10/12/2021 6:41 AM CDT 10/12/2021 7:29 AM CDT us Miguel Flores MD LAB BLOOD ORDERABLES Fi nal Result [facility] [address] Department [place] [address] * (ABNORMAL) Basic metabolic panel (10/12/2021 6:41 AM CDT) [facility] Sodium 137 135 - 145 mmol/L [facility] Potassium, pl 3.4 3.3 - 4.9 mmol/L [facility] Chloride 103 97 - 110 mmol/L [facility] CO2 26 22 - 32 mmol/L [facility] Anion gap 8 2 - 15 mmol/L [facility] BUN 14 8 - 25 mg/dL [facility] Creatinine 0.65(L) 0.80 - 1.30 mg/dL [facility] Glucose 90 70 - 199 mg/dL [facility] Comment: Interpretive Data Fasting glucose [...] classification and Diagnosis of Diabetes Diabetes Care 2017;40 (Suppl. 1):S11. Current interpretive data was last revised 2017. Calcium 8.2(L) 8.5 - 10.3 mg/dL [facility] Blood 10/12/2021 6:41 AM CDT 10/12/2021 7:29 AM CDT us Miguel Flores MD LAB BLOOD ORDERABLES Fi nal Result Performing Organization Address City/[facility]/ZIP Co de Phone Number [facility] [address] [place] [email or web address] [place], [place] [phone] * POCT glucose (10/12/2021 6:03 AM CDT) Glucose, POC 89 70 - 140 mg/dL [facility] Comment: For Glucose values <35 mg/dl when Hematocrit is >60 mg/dl,the test may not accurately detect significant hypoglycemia,and testing in the Laboratory should be considered if clinically indicated. Blood 10/12/2021 6:03 AM CDT 10/12/2021 6:03 AM CDT us Saqib Currie DO LAB POCT ORDERABLES - Natasha JETER Final Result [facility] [address] [place] [email or web address] [place], [place] [id number] * eGFR (10/11/2021 6:01 AM CDT) eGFR 100 mL/min/1. 73 m2 [facility] Comment: Interpretive Data Reference Interval [...] interpretive data was last reviewed 2021. Blood 10/11/2021 6:01 AM CDT 10/11/2021 6:17 AM CDT us Miguel Flores MD LAB BLOOD ORDERABLES Fi nal Result [facility] [address] Department of Laboratories [place], [place] [phone] * Differential, auto (10/11/2021 6:01 AM CDT) Neutrophil abs 3.5 1.7 - 6.5 K/cumm [facility] Imm gran abs 0.0 0.0 - 0.1 K/cumm [facility] Lymphocyte abs 1.0 0.8 - 3.3 K/cumm [facility] Monocyte abs 0.4 0.2 - 0.8 K/cumm [facility] Eosinophil abs 0.1 0.0 - 0.5 K/cumm [facility] Basophil abs 0.0 0.0 - 0.1 K/cumm [facility] Neutrophil pct 69.1 % [facility] Comment: Interpretive Data Percent cell count reference ranges are not reported, since discordance with absolute values may lead to misinterpretation of CBC data. Current Interpretive Data was last revised on 2017. Imm gran pct 0.2 % [facility] Comment: Interpretive Data Percent cell count reference ranges are not reported, since discordance with absolute values may lead to misinterpretation of CBC data. Current Interpretive Data was last revised on 2017. Lymphocyte pct 20.4 % [facility] Comment: Interpretive Data Percent cell count reference ranges are not reported, since discordance with absolute values may lead to misinterpretation of CBC data. Current Interpretive Data was last revised on 2017. Monocyte pct 7.9 % [facility] Comment: Interpretive Data Percent cell count reference ranges are not reported, since discordance with absolute values may lead to misinterpretation of CBC data. Current Interpretive Data was last revised on 2017. Eosinophil pct 2.2 % [facility] Comment: Interpretive Data Percent cell count reference ranges are not reported, since discordance with absolute values may lead to misinterpretation of CBC data. Current Interpretive Data was last revised on 2017. Basophil pct 0.2 % [facility] Comment: Interpretive Data Percent cell count reference ranges are not reported, since discordance with absolute values may lead to misinterpretation of CBC data. Current Interpretive Data was last revised on 2017. Blood 10/11/2021 6:01 AM CDT 10/11/2021 6:20 AM CDT us Miguel Flores MD LAB BLOOD ORDERABLES Fi nal Result [facility] [address] Department [place] [address] * (ABNORMAL) CBC with auto differential (10/11/2021 6:01 AM CDT) WBC 5.1 3.8 - 9.9 K/cumm [facility] Hgb 9.4(L) 13.0 - 17.5 g/dL [facility] Hct 28.7(L) 38.9 - 50.3 % [facility] Plt 102(L) 150 - 400 K/cumm [facility] MPV 11.1 9.1 - 12.3 fL [facility] RBC 3.04(L) 4.30 - 5.80 M/cumm [facility] MCV 94.4 81.3 - 96.4 fL [facility] MCH 30.9 27.1 - 33.3 pg [facility] MCHC 32.8 32.3 - 35.7 g/dL [facility] RDW CV 13.3 11.1 - 14.9 % [facility] RDW SD 46.6 35.7 - 48.1 fL [facility] NRBC abs 0.00 0.00 - 0.01 K/cumm [facility] Blood 10/11/2021 6:01 AM CDT 10/11/2021 6:20 AM CDT us Miguel Flores MD LAB BLOOD ORDERABLES Fi nal Result [facility] [address] Department of Laboratories [place], [place] [phone] * (ABNORMAL) Basic metabolic panel (10/11/2021 6:01 AM CDT) Sodium 137 135 - 145 mmol/L [facility] Potassium, pl 3.6 3.3 - 4.9 mmol/L [facility] Chloride 106 97 - 110 mmol/L [facility] CO2 25 22 - 32 mmol/L [facility] Anion gap 6 2 - 15 mmol/L [facility] BUN 15 8 - 25 mg/dL [facility] Creatinine 0.67(L) 0.80 - 1.30 mg/dL [facility] Glucose 97 70 - 199 mg/dL [facility] Comment: Interpretive Data Fasting glucose [...] classification and Diagnosis of Diabetes Diabetes Care 2017;40 (Suppl. 1):S11. Current interpretive data was last revised 2017. Calcium 8.1(L) 8.5 - 10.3 mg/dL [facility] Blood 10/11/2021 6:01 AM CDT 10/11/2021 6:17 AM CDT us Miguel Flores MD LAB BLOOD ORDERABLES Fi nal Result [facility] [address] Department [place] [address] * eGFR (10/10/2021 6:49 AM CDT) eGFR 97 mL/min/1. 73 m2 [facility] Comment: Interpretive Data Reference Interval [...] interpretive data was last reviewed 2021. Blood 10/10/2021 6:49 AM CDT 10/10/2021 7:10 AM CDT us Miguel Flores MD LAB BLOOD ORDERABLES Fi nal Result [facility] [address] Department [place] [address] * (ABNORMAL) Differential, auto (10/10/2021 6:49 AM CDT) Neutrophil abs 6.0 1.7 - 6.5 K/cumm [facility] Imm gran abs 0.0 0.0 - 0.1 K/cumm [facility] Lymphocyte abs 0.6(L) 0.8 - 3.3 K/cumm [facility] Monocyte abs 0.4 0.2 - 0.8 K/cumm [facility] Eosinophil abs 0.0 0.0 - 0.5 K/cumm [facility] Basophil abs 0.0 0.0 - 0.1 K/cumm [facility] Neutrophil pct 84.2 % [facility] Comment: Interpretive Data Percent cell count reference ranges are not reported, since discordance with absolute values may lead to misinterpretation of CBC data. Current Interpretive Data was last revised on 2017. Imm gran pct 0.3 % [facility] Comment: Interpretive Data Percent cell count reference ranges are not reported, since discordance with absolute values may lead to misinterpretation of CBC data. Current Interpretive Data was last revised on 2017. Lymphocyte pct 8.9 % [facility] Comment: Interpretive Data Percent cell count reference ranges are not reported, since discordance with absolute values may lead to misinterpretation of CBC data. Current Interpretive Data was last revised on 2017. Monocyte pct 5.9 % [facility] Comment: Interpretive Data Percent cell count reference ranges are not reported, since discordance with absolute values may lead to misinterpretation of CBC data. Current Interpretive Data was last revised on 2017. Eosinophil pct 0.6 % [facility] Comment: Interpretive Data Percent cell count reference ranges are not reported, since discordance with absolute values may lead to misinterpretation of CBC data. Current Interpretive Data was last revised on 2017. Basophil pct 0.1 % [facility] Comment: Interpretive Data Percent cell count reference ranges are not reported, since discordance with absolute values may lead to misinterpretation of CBC data. Current Interpretive Data was last revised on 2017. Blood 10/10/2021 6:49 AM CDT 10/10/2021 7:09 AM CDT Miguel Flores MD LAB BLOOD ORDERABLES Fi nal Result [facility] [address] Department of Laboratories [place], [place] [id number] * (ABNORMAL) CBC with auto differential (10/10/2021 6:49 AM CDT) WBC 7.2 3.8 - 9.9 K/cumm [facility] Hgb 10.1(L) 13.0 - 17.5 g/dL [facility] Hct 30.9(L) 38.9 - 50.3 % [facility] Plt 105(L) 150 - 400 K/cumm [facility] Comment:Consistent with prev ious result. MPV 11.4 9.1 - 12.3 fL [facility] RBC 3.23(L) 4.30 - 5.80 M/cumm [facility] MCV 95.7 81.3 - 96.4 fL [facility] MCH 31.3 27.1 - 33.3 pg [facility] [facility] MCHC 32.7 32.3 - 35.7 g/dL [facility] RDW CV 13.4 11.1 - 14.9 % [facility] RDW SD 47.5 35.7 - 48.1 fL [facility] NRBC abs 0.00 0.00 - 0.01 K/cumm [facility] Blood 10/10/2021 6:49 AM CDT 10/10/2021 7:09 AM CDT Miguel Flores MD LAB BLOOD ORDERABLES Fi nal Result [facility] [address] Department [place] [address] * (ABNORMAL) Basic metabolic panel (10/10/2021 6:49 AM CDT) [facility] Sodium 136 135 - 145 mmol/L [facility] Potassium, pl 3.8 3.3 - 4.9 mmol/L [facility] Chloride 103 97 - 110 mmol/L [facility] CO2 23 22 - 32 mmol/L [facility] Anion gap 10 2 - 15 mmol/L [facility] BUN 17 8 - 25 mg/dL [facility] Creatinine 0.75(L) 0.80 - 1.30 mg/dL [facility] Glucose 97 70 - 199 mg/dL [facility] Comment: Interpretive Data Fasting glucose [...] classification and Diagnosis of Diabetes Diabetes Care 2017;40 (Suppl. 1):S11. Current interpretive data was last revised 2017. Calcium 8.1(L) 8.5 - 10.3 mg/dL [facility] Blood 10/10/2021 6:49 AM CDT 10/10/2021 7:10 AM CDT Miguel Flores MD LAB BLOOD ORDERABLES Fi nal Result Performing Organization Address City/[facility]/ZIP Co de Phone Number [facility] [address] Department [place] [address] * POCT glucose (10/10/2021 6:40 AM CDT) Glucose, POC 94 70 - 140 mg/dL [facility] Comment: For Glucose values <35 mg/dl when Hematocrit is >60 mg/dl,the test may not accurately detect significant hypoglycemia,and testing in the Laboratory should be considered if clinically indicated. Blood 10/10/2021 6:40 AM CDT 10/10/2021 6:40 AM CDT Elisa Oliva MD LAB POCT ORDERABLES - DEVICE Fi nal Result Performing Organization Address [facility] de Phone Number [facility] [address] [facility] [place], [place] [id number] * POCT glucose (10/09/2021 6:25 AM CDT) Glucose, POC 106 70 - 140 mg/dL [facility] Comment: For Glucose values <35 mg/dl when Hematocrit is >60 mg/dl,the test may not accurately detect significant hypoglycemia,and testing in the Laboratory should be considered if clinically indicated. Blood 10/09/2021 6:25 AM CDT 10/09/2021 6:25 AM CDT Elisa Oliva MD LAB POCT ORDERABLES - DEVICE Fi nal Result Performing Organization Address [facility] de Phone Number [facility] [address] [facility] [place] [address] * eGFR (10/09/2021 6:15 AM CDT) eGFR 97 mL/min/1. 73 m2 [facility] Comment: Interpretive Data Reference Interval [...] interpretive data was last reviewed 2021. Blood 10/09/2021 6:15 AM CDT 10/09/2021 6:38 AM CDT us Miguel Flores MD LAB BLOOD ORDERABLES Fi nal Result [facility] [address] Department [place] [address] * Differential, auto (10/09/2021 6:15 AM CDT) Neutrophil abs 3.6 1.7 - 6.5 K/cumm [facility] Imm gran abs 0.0 0.0 - 0.1 K/cumm [facility] Lymphocyte abs 0.8 0.8 - 3.3 K/cumm [facility] Monocyte abs 0.3 0.2 - 0.8 K/cumm [facility] Eosinophil abs 0.0 0.0 - 0.5 K/cumm [facility] Basophil abs 0.0 0.0 - 0.1 K/cumm [facility] Neutrophil pct 76.3 % [facility] Comment: Interpretive Data Percent cell count reference ranges are not reported, since discordance with absolute values may lead to misinterpretation of CBC data. Current Interpretive Data was last revised on 2017. Imm gran pct 0.2 % [facility] Comment: Interpretive Data Percent cell count reference ranges are not reported, since discordance with absolute values may lead to misinterpretation of CBC data. Current Interpretive Data was last revised on 2017. Lymphocyte pct 17.6 % [facility] Comment: Interpretive Data Percent cell count reference ranges are not reported, since discordance with absolute values may lead to misinterpretation of CBC data. Current Interpretive Data was last revised on 2017. Monocyte pct 5.5 % [facility] Comment: Interpretive Data Percent cell count reference ranges are not reported, since discordance with absolute values may lead to misinterpretation of CBC data. Current Interpretive Data was last revised on 2017. Eosinophil pct 0.4 % [facility] Comment: Interpretive Data Percent cell count reference ranges are not reported, since discordance with absolute values may lead to misinterpretation of CBC data. Current Interpretive Data was last revised on 2017. Basophil pct 0.0 % [facility] Comment: Interpretive Data Percent cell count reference ranges are not reported, since discordance with absolute values may lead to misinterpretation of CBC data. Current Interpretive Data was last revised on 2017. Blood 10/09/2021 6:15 AM CDT 10/09/2021 6:38 AM CDT us Miguel Flores MD LAB BLOOD ORDERABLES Fi nal Result [facility] [address] Department [place] [address] * (ABNORMAL) CBC with auto differential (10/09/2021 6:15 AM CDT) WBC 4.8 3.8 - 9.9 K/cumm [facility] Hgb 9.8(L) 13.0 - 17.5 g/dL [facility] Hct 29.7(L) 38.9 - 50.3 % [facility] Plt 99(L) 150 - 400 K/cumm [facility] MPV 11.2 9.1 - 12.3 fL [facility] RBC 3.18(L) 4.30 - 5.80 M/cumm [facility] MCV 93.4 81.3 - 96.4 fL [facility] MCH 30.8 27.1 - 33.3 pg [facility] MCHC 33.0 32.3 - 35.7 g/dL [facility] RDW CV 13.3 11.1 - 14.9 % [facility] RDW SD 45.9 35.7 - 48.1 fL [facility] NRBC abs 0.00 0.00 - 0.01 K/cumm [facility] Blood 10/09/2021 6:15 AM CDT 10/09/2021 6:38 AM CDT Miguel Flores MD LAB BLOOD ORDERABLES Fi nal Result [facility] [address] Department [place] [address] * (ABNORMAL) Basic metabolic panel (10/09/2021 6:15 AM CDT) Sodium 138 135 - 145 mmol/L [facility] Potassium, pl 3.8 3.3 - 4.9 mmol/L [facility] Chloride 105 97 - 110 mmol/L [facility] CO2 25 22 - 32 mmol/L [facility] Anion gap 8 2 - 15 mmol/L [facility] BUN 13 8 - 25 mg/dL [facility] Creatinine 0.75(L) 0.80 - 1.30 mg/dL [facility] Glucose 115 70 - 199 mg/dL [facility] Comment: Interpretive Data Fasting glucose [...] classification and Diagnosis of Diabetes Diabetes Care 2017;40 (Suppl. 1):S11. Current interpretive data was last revised 2017. Calcium 8.2(L) 8.5 - 10.3 mg/dL [facility] Blood 10/09/2021 6:15 AM CDT 10/09/2021 6:38 AM CDT Miguel Flores MD LAB BLOOD ORDERABLES Fi nal Result [facility] [address] Department [place] [address] * XR Hip Right 2 or 3 Views (10/08/2021 11:03 AM CDT) Anatomical Region Laterality Modality Lower Extremities, Hip, Pelvis Right C omputed Radiography 10/08/2021 11:0 7 AM CDT Impressions 10/08/2021 11:07 AM CDT Interval placement of right femur intramedullary vicki with interlocking screw that extends along the course of the right femoral neck. Hardware is intact. No periprosthetic fracture. Remaining bony pelvis intact. Please see operative report for additional findings and details. Electronically signed by: Chuck Galindo M.D. Narrative 10/08/2021 11:07 AM CDT XR HIP RIGHT 2 OR 3 VIEWS: 10/08/2021 11:10 AM CLINICAL INDICATION: Fracture, hip. COMPARISON: CT right hip dated 10/07/2021. Procedure Note Chuck Galindo MD - 10/08/2021 XR HIP RIGHT 2 OR 3 VIEWS: 10/08/2021 11:10 AM CLINICAL INDICATION: Fracture, hip. COMPARISON: CT right hip dated 10/07/2021. IMPRESSION: Interval placement of right femur intramedullary vicki with interlocking screw that extends along the course of the right femoral neck. Hardware is intact. No periprosthetic fracture. Remaining bony pelvis intact. Please see operative report for additional findings and details. Electronically signed by: Chuck Galindo M.D. Miguel Flores MD IMG XR PROCEDURES Final Result * [place] Fluoroscopy < 1 Hour (10/08/2021 11:02 AM CDT) Narrative [facility] - 10/08/2021 11:02 AM CDT The images from this study are not interpreted by Radiology. ??Please refer to the physician's procedure / OR operative note. Miguel Flores MD IMG FLUOROSCOPY PROCEDU RES Final Result Performing Organization Address City/[facility] Co de Phone Number [facility] * Protime-INR (10/08/2021 3:37 AM CDT) Pathologist [facility] PT 12.9 9.2 - 13.5 sec [facility] INR 1.2 0.9 - 1.2 [facility] Comment: Interpretive data Oral anticoagulant therapeutic ranges: Venous thromboembolism prophylaxis or treatment: 2.0-3.0 CARDIOLOGY Standard range: 2.0-3.0 High-intensity range: 2.5-3.5 Refer to indication-specific guidelines for appropriate target ranges for prosthetic heart valve replacement. Current interpretive data was last revised on 2019. Blood 10/08/2021 3:37 AM CDT 10/08/2021 3:48 AM CDT us Elisa Oliva MD LAB BLOOD ORDERABLES Final Resu lt Performing Organization Address [facility] Co de Phone Number [facility] [address] Department [place] [address] * Differential, auto (10/08/2021 2:46 AM CDT) Neutrophil abs 2.9 1.7 - 6.5 K/cumm [facility] Imm gran abs 0.0 0.0 - 0.1 K/cumm [facility] Lymphocyte abs 1.4 0.8 - 3.3 K/cumm [facility] Monocyte abs 0.2 0.2 - 0.8 K/cumm [facility] Eosinophil abs 0.1 0.0 - 0.5 K/cumm [facility] Basophil abs 0.0 0.0 - 0.1 K/cumm [facility] Neutrophil pct 62.5 % [facility] Comment: Interpretive Data Percent cell count reference ranges are not reported, since discordance with absolute values may lead to misinterpretation of CBC data. Current Interpretive Data was last revised on 2017. Imm gran pct 0.2 % [facility] Comment: Interpretive Data Percent cell count reference ranges are not reported, since discordance with absolute values may lead to misinterpretation of CBC data. Current Interpretive Data was last revised on 2017. Lymphocyte pct 29.4 % [facility] Comment: Interpretive Data Percent cell count reference ranges are not reported, since discordance with absolute values may lead to misinterpretation of CBC data. Current Interpretive Data was last revised on 2017. Monocyte pct 5.1 % [facility] Comment: Interpretive Data Percent cell count reference ranges are not reported, since discordance with absolute values may lead to misinterpretation of CBC data. Current Interpretive Data was last revised on 2017. Eosinophil pct 2.6 % [facility] Comment: Interpretive Data Percent cell count reference ranges are not reported, since discordance with absolute values may lead to misinterpretation of CBC data. Current Interpretive Data was last revised on 2017. Basophil pct 0.2 % [facility] Comment: Interpretive Data Percent cell count reference ranges are not reported, since discordance with absolute values may lead to misinterpretation of CBC data. Current Interpretive Data was last revised on 2017. Blood 10/08/2021 2:46 AM CDT 10/08/2021 2:46 AM CDT Saqib Currie DO LAB BLOOD ORDERABLES Fi nal Result [facility] [address] Department [place] [address] * (ABNORMAL) CBC with auto differential (10/08/2021 2:46 AM CDT) WBC 4.7 3.8 - 9.9 K/cumm [facility] Hgb 10.9(L) 13.0 - 17.5 g/dL [facility] Hct 32.7(L) 38.9 - 50.3 % [facility] Plt 120(L) 150 - 400 K/cumm [facility] MPV 10.5 9.1 - 12.3 fL [facility] RBC 3.49(L) 4.30 - 5.80 M/cumm [facility] MCV 93.7 81.3 - 96.4 fL [facility] MCH 31.2 27.1 - 33.3 pg [facility] MCHC 33.3 32.3 - 35.7 g/dL [facility] RDW CV 13.3 11.1 - 14.9 % [facility] RDW SD 45.7 35.7 - 48.1 fL [facility] NRBC abs 0.00 0.00 - 0.01 K/cumm [facility] Blood 10/08/2021 2:46 AM CDT 10/08/2021 2:46 AM CDT Miguel Flores MD LAB BLOOD ORDERABLES Fi nal Result [facility] [address] Department [place] [address] * eGFR (10/08/2021 2:41 AM CDT) eGFR 96 mL/min/1. 73 m2 [facility] Comment: Interpretive Data Reference Interval [...] interpretive data was last reviewed 2021. Blood 10/08/2021 2:41 AM CDT 10/08/2021 2:46 AM CDT us Saqib Currie DO LAB BLOOD ORDERABLES nal Result [facility] [address] Department [place] [address] * (ABNORMAL) Basic metabolic panel (10/08/2021 2:41 AM CDT) Sodium 136 135 - 145 mmol/L [facility] Potassium, pl 3.7 3.3 - 4.9 mmol/L [facility] Chloride 103 97 - 110 mmol/L [facility] CO2 27 22 - 32 mmol/L [facility] Anion gap 6 2 - 15 mmol/L [facility] BUN 11 8 - 25 mg/dL [facility] Creatinine 0.77(L) 0.80 - 1.30 mg/dL [facility] Glucose 109 70 - 199 mg/dL [facility] Comment: Interpretive Data Fasting glucose [...] classification and Diagnosis of Diabetes Diabetes Care 2017;40 (Suppl. 1):S11. Current interpretive data was last revised 2017. Calcium 8.2(L) 8.5 - 10.3 mg/dL [facility] Blood 10/08/2021 2:41 AM CDT 10/08/2021 2:46 AM CDT Miguel Flores MD LAB BLOOD ORDERABLES Fi nal Result [facility] [address] Department [place] [address] * CT hip right without contrast (10/07/2021 2:03 PM CDT) Anatomical Region Laterality Modality Lower Extremities Right Computed Tomog antonio 10/07/2021 2:13 PM CDT Impressions 10/07/2021 2:13 PM CDT Severely comminuted acute right intertrochanteric hip fracture. Diastases of fracture fragments near the greater trochanter noted. Electronically signed by: ALEXA CARDENAS M.D. Narrative 10/07/2021 2:13 PM CDT EXAM: CT HIP RIGHT WO CONTRAST, DATE: 10/07/2021 1:05 PM COMPARISON: 06/17/2021 CT and 10/07/2021 hip radiograph INDICATION: ??Fracture non-union, hip TECHNIQUE: Noncontrast CT head performed. FINDINGS: Severely comminuted acute right intertrochanteric hip fracture. There is diastases of the fracture fragments near the greater trochanter. ??No hip joint dislocation. ??Mild right hip degenerative changes noted. ??No significant hematoma. Procedure Note Alexa Cardenas MD - 10/07/2021 EXAM: CT HIP RIGHT WO CONTRAST, DATE: 10/07/2021 1:05 PM COMPARISON: 06/17/2021 CT and 10/07/2021 hip radiograph INDICATION: Fracture non-union, hip TECHNIQUE: Noncontrast CT head performed. FINDINGS: Severely comminuted acute right intertrochanteric hip fracture. There is diastases of the fracture fragments near the greater trochanter. No hip joint dislocation. Mild right hip degenerative changes noted. No significant hematoma. IMPRESSION: Severely comminuted acute right intertrochanteric hip fracture. Diastases of fracture fragments near the greater trochanter noted. Electronically signed by: ALEXA CARDENAS M.D. Miguel Flores MD IMG CT PROCEDURES Final Result * CT Head WO Contrast (10/07/2021 10:15 AM CDT) Anatomical Region Laterality Modality Head and Neck N/A Computed Tomogra phy 10/07/2021 10:2 1 AM CDT Impressions 10/07/2021 10:[address] finding of acute traumatic brain injury or acute intracranial hemorrhage. ??No additional significant interval change since the last exam. Electronically signed by: MIREYA BARAJAS Narrative 10/07/2021 10:[address] head HISTORY: Trauma COMPARISON: CT head 10/04/2021 for findings: Axial scans are obtained and reconstructions generated. ??There is no CT finding of an acute traumatic brain injury or acute intracranial hemorrhage otherwise. Volume loss including ventricular size and configuration and subcortical disease are stable. ??There is no appreciable extra-axial collection. ??Is no acute fracture involving the central skull base or calvarium. Procedure Note Mireya Barajas MD - 10/07/2021 CT head HISTORY: Trauma COMPARISON: CT head 10/04/2021 for findings: Axial scans are obtained and reconstructions generated. There is no CT finding of an acute traumatic brain injury or acute intracranial hemorrhage otherwise. Volume loss including ventricular size and configuration and subcortical disease are stable. There is no appreciable extra-axial collection. Is no acute fracture involving the central skull base or calvarium. IMPRESSION: No CT finding of acute traumatic brain injury or acute intracranial hemorrhage. No additional significant interval change since the last exam. Electronically signed by: MIREYA BARAJAS Mychal SANDOVAL IM CT PROCEDURES Final Result * XR Hips Bilateral 2 Views W Pelvis (10/07/2021 9:59 AM CDT) Anatomical Region Laterality Modality Lower Extremities, Hip, Pelvis Bilateral R adio Fluoroscopy 10/07/2021 10:0 3 AM CDT Impressions 10/07/2021 10:03 AM CDT Acute right intertrochanteric femur fracture as above. Electronically signed by: Clarence Prado M.D. Narrative 10/07/2021 10:03 AM CDT EXAM: XR HIPS BILATERAL 2 VIEWS W PELVIS CLINICAL HISTORY: unwitnessed fall, pelvic pain COMPARISON: None available. FINDINGS: There is generalized osteopenia. ??The patient is status post ORIF of old healed proximal left femur fracture with vicki and screw fixation. The long intramedullary vicki is not included in its entirety on this examination. There is a comminuted right greater trochanter with extension into the intertrochanteric region. ??There is no displacement of the intertrochanteric component. ??There is mild displacement of the greater trochanteric component. No additional acute fractures are identified. Mild to moderate bilateral hip degenerative changes are noted. ??Lower lumbar spondylotic changes are appreciated. ??Vascular calcifications are noted. ??Barium-containing colonic diverticula are noted. Procedure Note Clarence Prado MD - 10/07/2021 EXAM: XR HIPS BILATERAL 2 VIEWS W PELVIS CLINICAL HISTORY: unwitnessed fall, pelvic pain COMPARISON: None available. FINDINGS: There is generalized osteopenia. The patient is status post ORIF of old healed proximal left femur fracture with vicki and screw fixation. The long intramedullary vicki is not included in its entirety on this examination. There is a comminuted right greater trochanter with extension into the intertrochanteric region. There is no displacement of the intertrochanteric component. There is mild displacement of the greater trochanteric component. No additional acute fractures are identified. Mild to moderate bilateral hip degenerative changes are noted. Lower lumbar spondylotic changes are appreciated. Vascular calcifications are noted. Barium-containing colonic diverticula are noted. IMPRESSION: Acute right intertrochanteric femur fracture as above. Electronically signed by: Clarence Prado M.D. Mychal SANDOVAL IMG XR PROCEDURES Final Result * Magnesium - Add on lab test (10/07/2021 7:45 AM CDT) Acceptable Yes [facility] Blood 10/07/2021 7:45 AM CDT 10/07/2021 7:45 AM CDT Narrative [facility] - 10/07/2021 7:45 AM CDT Name of Test->Magnesium us Elisa Oliva MD LAB BLOOD ORDERABLES Final Resu lt Performing Organization Address [facility] de Phone Number [facility] [address] [facility] [place] [address] * Magnesium (10/07/2021 6:30 AM CDT) Magnesium 1.7 1.4 - 2.5 mg/dL [facility] Blood 10/07/2021 6:30 AM CDT 10/07/2021 6:53 AM CDT us Elisa Oliva MD LAB BLOOD ORDERABLES Final Resu lt Performing Organization Address [facility] de Phone Number [facility] [address] [facility] [place] [address] * eGFR (10/07/2021 6:30 AM CDT) eGFR 100 mL/min/1. 73 m2 [facility] Comment: Interpretive Data Reference Interval [...] interpretive data was last reviewed 2021. Blood 10/07/2021 6:30 AM CDT 10/07/2021 6:53 AM CDT us Saqib Currie DO LAB BLOOD ORDERABLES Fi nal Result [facility] [address] Department [place] [address] * Differential, auto (10/07/2021 6:30 AM CDT) Neutrophil abs 1.8 1.7 - 6.5 K/cumm [facility] Imm gran abs 0.0 0.0 - 0.1 K/cumm [facility] Lymphocyte abs 1.7 0.8 - 3.3 K/cumm [facility] Monocyte abs 0.3 0.2 - 0.8 K/cumm [facility] Eosinophil abs 0.0 0.0 - 0.5 K/cumm [facility] Basophil abs 0.0 0.0 - 0.1 K/cumm [facility] Neutrophil pct 46.1 % [facility] Comment: Interpretive Data Percent cell count reference ranges are not reported, since discordance with absolute values may lead to misinterpretation of CBC data. Current Interpretive Data was last revised on 2017. Imm gran pct 0.3 % [facility] Comment: Interpretive Data Percent cell count reference ranges are not reported, since discordance with absolute values may lead to misinterpretation of CBC data. Current Interpretive Data was last revised on 2017. Lymphocyte pct 43.6 % [facility] Comment: Interpretive Data Percent cell count reference ranges are not reported, since discordance with absolute values may lead to misinterpretation of CBC data. Current Interpretive Data was last revised on 2017. Monocyte pct 8.7 % [facility] Comment: Interpretive Data Percent cell count reference ranges are not reported, since discordance with absolute values may lead to misinterpretation of CBC data. Current Interpretive Data was last revised on 2017. Eosinophil pct 1.0 % [facility] Comment: Interpretive Data Percent cell count reference ranges are not reported, since discordance with absolute values may lead to misinterpretation of CBC data. Current Interpretive Data was last revised on 2017. Basophil pct 0.3 % [facility] Comment: Interpretive Data Percent cell count reference ranges are not reported, since discordance with absolute values may lead to misinterpretation of CBC data. Current Interpretive Data was last revised on 2017. Blood 10/07/2021 6:30 AM CDT 10/07/2021 6:52 AM CDT us Saqib Currie DO LAB BLOOD ORDERABLES nal Result [facility] [address] Department [place] [address] * (ABNORMAL) CBC with auto differential (10/07/2021 6:30 AM CDT) WBC 3.9 3.8 - 9.9 K/cumm [facility] Hgb 11.6(L) 13.0 - 17.5 g/dL [facility] Hct 35.0(L) 38.9 - 50.3 % [facility] Plt 134(L) 150 - 400 K/cumm [facility] MPV 10.6 9.1 - 12.3 fL [facility] RBC 3.72(L) 4.30 - 5.80 M/cumm [facility] MCV 94.1 81.3 - 96.4 fL [facility] MCH 31.2 27.1 - 33.3 pg [facility] MCHC 33.1 32.3 - 35.7 g/dL [facility] RDW CV 13.3 11.1 - 14.9 % [facility] [facility] RDW SD 45.8 35.7 - 48.1 fL [facility] NRBC abs 0.00 0.00 - 0.01 K/cumm [facility] Blood 10/07/2021 6:30 AM CDT 10/07/2021 6:52 AM CDT Miguel Flores MD LAB BLOOD ORDERABLES Fi nal Result Performing Organization Address City/[facility]/ZIP Co de Phone Number [facility] [address] Department [place] [address] * (ABNORMAL) Basic metabolic panel (10/07/2021 6:30 AM CDT) Pathologist [facility] Sodium 137 135 - 145 mmol/L [facility] Potassium, pl 2.9(L) 3.3 - 4.9 mmol/L [facility] Chloride 103 97 - 110 mmol/L [facility] CO2 26 22 - 32 mmol/L [facility] Anion gap 8 2 - 15 mmol/L [facility] BUN 8 8 - 25 mg/dL [facility] Creatinine 0.67(L) 0.80 - 1.30 mg/dL [facility] Glucose 77 70 - 199 mg/dL [facility] Comment: Interpretive Data Fasting glucose [...] classification and Diagnosis of Diabetes Diabetes Care 2017;40 (Suppl. 1):S11. Current interpretive data was last revised 2017. Calcium 8.1(L) 8.5 - 10.3 mg/dL [facility] Blood 10/07/2021 6:30 AM CDT 10/07/2021 6:53 AM CDT Miguel Flores MD LAB BLOOD ORDERABLES Fi nal Result Performing Organization Address City/[facility]/ZIP Co de Phone Number [facility] [address] Department [place] [address] * eGFR (10/06/2021 6:39 AM CDT) [facility] eGFR 98 mL/min/1. 73 m2 [facility] Comment: Interpretive Data Reference Interval [...] interpretive data was last reviewed 2021. Blood 10/06/2021 6:39 AM CDT 10/06/2021 7:51 AM CDT us Saqib Currie DO LAB BLOOD ORDERABLES Fi nal Result [facility] [address] Department [place] [address] * Differential, auto (10/06/2021 6:39 AM CDT) [facility] Neutrophil abs 2.6 1.7 - 6.5 K/cumm [facility] Imm gran abs 0.0 0.0 - 0.1 K/cumm [facility] Lymphocyte abs 2.0 0.8 - 3.3 K/cumm [facility] Monocyte abs 0.4 0.2 - 0.8 K/cumm [facility] Eosinophil abs 0.0 0.0 - 0.5 K/cumm [facility] Basophil abs 0.0 0.0 - 0.1 K/cumm [facility] Neutrophil pct 51.6 % [facility] Comment: Interpretive Data Percent cell count reference ranges are not reported, since discordance with absolute values may lead to misinterpretation of CBC data. Current Interpretive Data was last revised on 2017. Imm gran pct 0.2 % [facility] Comment: Interpretive Data Percent cell count reference ranges are not reported, since discordance with absolute values may lead to misinterpretation of CBC data. Current Interpretive Data was last revised on 2017. Lymphocyte pct 40.3 % [facility] Comment: Interpretive Data Percent cell count reference ranges are not reported, since discordance with absolute values may lead to misinterpretation of CBC data. Current Interpretive Data was last revised on 2017. Monocyte pct 7.1 % [facility] Comment: Interpretive Data Percent cell count reference ranges are not reported, since discordance with absolute values may lead to misinterpretation of CBC data. Current Interpretive Data was last revised on 2017. Eosinophil pct 0.4 % [facility] Comment: Interpretive Data Percent cell count reference ranges are not reported, since discordance with absolute values may lead to misinterpretation of CBC data. Current Interpretive Data was last revised on 2017. Basophil pct 0.4 % [facility] Comment: Interpretive Data Percent cell count reference ranges are not reported, since discordance with absolute values may lead to misinterpretation of CBC data. Current Interpretive Data was last revised on 2017. Blood 10/06/2021 6:39 AM CDT 10/06/2021 7:51 AM CDT us Saqib Currie DO LAB BLOOD ORDERABLES Fi nal Result [facility] [address] Department [place] [address] * (ABNORMAL) CBC with auto differential (10/06/2021 6:39 AM CDT) [facility] WBC 4.9 3.8 - 9.9 K/cumm [facility] Hgb 12.9(L) 13.0 - 17.5 g/dL [facility] Hct 39.2 38.9 - 50.3 % [facility] Plt 158 150 - 400 K/cumm [facility] MPV 10.9 9.1 - 12.3 fL [facility] RBC 4.10(L) 4.30 - 5.80 M/cumm [facility] MCV 95.6 81.3 - 96.4 fL [facility] MCH 31.5 27.1 - 33.3 pg [facility] MCHC 32.9 32.3 - 35.7 g/dL [facility] RDW CV 13.5 11.1 - 14.9 % [facility] RDW SD 47.8 35.7 - 48.1 fL [facility] NRBC abs 0.00 0.00 - 0.01 K/cumm [facility] Blood 10/06/2021 6:39 AM CDT 10/06/2021 7:51 AM CDT Miguel Flores MD LAB BLOOD ORDERABLES Fi nal Result [facility] [address] Department [place] [address] * (ABNORMAL) Basic metabolic panel (10/06/2021 6:39 AM CDT) [facility] Sodium 139 135 - 145 mmol/L [facility] Potassium, pl 3.0(L) 3.3 - 4.9 mmol/L [facility] Chloride 103 97 - 110 mmol/L [facility] CO2 26 22 - 32 mmol/L [facility] Anion gap 10 2 - 15 mmol/L [facility] BUN 11 8 - 25 mg/dL [facility] Creatinine 0.73(L) 0.80 - 1.30 mg/dL [facility] Glucose 77 70 - 199 mg/dL [facility] Comment: Interpretive Data Fasting glucose [...] classification and Diagnosis of Diabetes Diabetes Care 2017;40 (Suppl. 1):S11. Current interpretive data was last revised 2017. Calcium 8.3(L) 8.5 - 10.3 mg/dL [facility] Blood 10/06/2021 6:39 AM CDT 10/06/2021 7:51 AM CDT Miguel Flores MD LAB BLOOD ORDERABLES Fi nal Result [facility] [address] Department [place] [address] * MRSA Only (Staphylococcs aureus) PCR Nasal (10/05/2021 12:00 PM CDT) [facility] PCR Scrn, Methicillin resistant Staphylococcus aureus (MRSA) Not Detected Not Detected [facility] Comment: Testing performed using Nucleic Acid Amplification with the [employer]ep[employer] Xpert MRSA Assay. This assay detects DNA from SCCmec strains of Staphylococcus aureus using Real- Time PCR and has been cleared by the FDA. Performance characteristics have been verified by the [facility]. Nasal 10/05/2021 12:0 0 PM CDT 10/05/2021 12:50 PM CDT Elisa Oliva MD LAB MICROBIOLOGY - GENERAL ENA GRAFF Final Result Performing Organization Address City/[facility]/ZIP Co de Phone Number [facility] [address] Department [place] [address] * Procalcitonin - Add on lab test (10/05/2021 11:45 AM CDT) [facility] Acceptable Yes [facility] Blood 10/05/2021 11:4 5 AM CDT 10/05/2021 11:45 AM CDT Narrative [facility] - 10/05/2021 11:45 AM CDT Name of Test->Procalcitonin Elisa Oliva MD LAB BLOOD ORDERABLES Final Resu lt Performing Organization Address [facility]/ZIP Co de Phone Number [facility] [address] [place] [address] * Procalcitonin (10/05/2021 5:44 AM CDT) [facility] Procalcitonin 0.12 0.02 - 0.80 ng/mL [facility] Blood 10/05/2021 5:44 AM CDT 10/05/2021 5:58 AM CDT Elisa Oliva MD LAB BLOOD ORDERABLES Final Resu lt Performing Organization Address [facility] Co de Phone Number [facility] [address] Department [place] [address] * eGFR (10/05/2021 5:44 AM CDT) [facility] eGFR 95 mL/min/1. 73 m2 [facility] Comment: Interpretive Data Reference Interval [...] interpretive data was last reviewed 2021. Blood 10/05/2021 5:44 AM CDT 10/05/2021 5:58 AM CDT us Saqib Currie DO LAB BLOOD ORDERABLES [facility] Result [facility] [address] Department [place] [address] * (ABNORMAL) Differential, auto (10/05/2021 5:44 AM CDT) Neutrophil abs 1.4(L) 1.7 - 6.5 K/cumm [facility] Imm gran abs 0.0 0.0 - 0.1 K/cumm [facility] Lymphocyte abs 0.8 0.8 - 3.3 K/cumm [facility] Monocyte abs 0.2 0.2 - 0.8 K/cumm [facility] Eosinophil abs 0.0 0.0 - 0.5 K/cumm [facility] Basophil abs 0.0 0.0 - 0.1 K/cumm [facility] Neutrophil pct 57.5 % [facility] Comment: Interpretive Data Percent cell count reference ranges are not reported, since discordance with absolute values may lead to misinterpretation of CBC data. Current Interpretive Data was last revised on 2017. Imm gran pct 0.4 % [facility] Comment: Interpretive Data Percent cell count reference ranges are not reported, since discordance with absolute values may lead to misinterpretation of CBC data. Current Interpretive Data was last revised on 2017. Lymphocyte pct 34.0 % [facility] Comment: Interpretive Data Percent cell count reference ranges are not reported, since discordance with absolute values may lead to misinterpretation of CBC data. Current Interpretive Data was last revised on 2017. Monocyte pct 8.1 % [facility] Comment: Interpretive Data Percent cell count reference ranges are not reported, since discordance with absolute values may lead to misinterpretation of CBC data. Current Interpretive Data was last revised on 2017. Eosinophil pct 0.0 % [facility] Comment: Interpretive Data Percent cell count reference ranges are not reported, since discordance with absolute values may lead to misinterpretation of CBC data. Current Interpretive Data was last revised on 2017. Basophil pct 0.0 % [facility] Comment: Interpretive Data Percent cell count reference ranges are not reported, since discordance with absolute values may lead to misinterpretation of CBC data. Current Interpretive Data was last revised on 2017. Blood 10/05/2021 5:44 AM CDT 10/05/2021 5:58 AM CDT Saqib Currie DO LAB BLOOD ORDERABLES Fi nal Result [facility] [address] Department of Laboratories [place], [place] [id number] * (ABNORMAL) CBC with auto differential (10/05/2021 5:44 AM CDT) WBC 2.5(L) 3.8 - 9.9 K/cumm [facility] Hgb 11.2(L) 13.0 - 17.5 g/dL [facility] Hct 32.8(L) 38.9 - 50.3 % [facility] Plt 124(L) 150 - 400 K/cumm [facility] MPV 11.1 9.1 - 12.3 fL [facility] RBC 3.44(L) 4.30 - 5.80 M/cumm [facility] MCV 95.3 81.3 - 96.4 fL [facility] MCH 32.6 27.1 - 33.3 pg [facility] MCHC 34.1 32.3 - 35.7 g/dL [facility] RDW CV 13.5 11.1 - 14.9 % [facility] RDW SD 47.1 35.7 - 48.1 fL [facility] NRBC abs 0.00 0.00 - 0.01 K/cumm [facility] Blood 10/05/2021 5:44 AM CDT 10/05/2021 5:58 AM CDT us Miguel Flores MD LAB BLOOD ORDERABLES Fi nal Result [facility] [address] Department [place] [address] * (ABNORMAL) Basic metabolic panel (10/05/2021 5:44 AM CDT) Sodium 140 135 - 145 mmol/L [facility] Potassium, pl 3.7 3.3 - 4.9 mmol/L [facility] Chloride 108 97 - 110 mmol/L [facility] CO2 21(L) 22 - 32 mmol/L [facility] Anion gap 11 2 - 15 mmol/L [facility] BUN 11 8 - 25 mg/dL [facility] Creatinine 0.81 0.80 - 1.30 mg/dL [facility] Glucose 89 70 - 199 mg/dL [facility] Comment: Interpretive Data Fasting glucose [...] classification and Diagnosis of Diabetes Diabetes Care 2017;40 (Suppl. 1):S11. Current interpretive data was last revised 2017. Calcium 8.0(L) 8.5 - 10.3 mg/dL [facility] Blood 10/05/2021 5:44 AM CDT 10/05/2021 5:58 AM CDT Miguel Flores MD LAB BLOOD ORDERABLES Fi nal Result Performing Organization Address [facility]/ZIP Co de Phone Number [facility] [address] Department [place] [address] * Respiratory Pathogen Panel PCR - Add on lab test (10/04/2021 3:53 PM CDT) Acceptable Yes [facility] Blood 10/04/2021 3:53 PM CDT 10/04/2021 3:54 PM CDT Narrative [facility] - 10/04/2021 3:54 PM CDT Name of Test->Respiratory Pathogen Panel PCR Alysha Ramirez MD LAB BLOOD ORDERABLES Final Re sult Performing Organization Address [facility] Co de Phone Number [facility] [address] Department [place] [address] * (ABNORMAL) Troponin T high-sensitivity 2-hour (10/04/2021 3:18 PM CDT) Trop T hs 29(H) <=22 ng/L [facility] Comment: Interpretive Data For further hscTnT resources including the diagnostic algorithm and an aid in interpretation, copy and paste this link: https://nrl.testcatalog.org/show/hsTrop Current Interpretive Data last revised 2020. Trop T hs delta -1 ng/L [facility] Trop T hs interp Insignificant [facility] Blood 10/04/2021 3:18 PM CDT 10/04/2021 3:59 PM CDT Gian Jackson MD LAB BLOOD ORDERABLES Final R esult Performing Organization Address City/[facility]/ZIP Co de Phone Number [facility] [address] Department [place] [address] * LA CRITICAL CARE ILL/INJURED PATIENT INIT 30-74 MIN (10/04/2021 3:12 PM CDT) Narrative Gian Jackson MD - 10/04/2021 3:12 PM CDT Gian Jackson MD ? 10/04/2021 ??3:14 PM Critical Care Performed by: Gian Jackson MD Authorized by: Gian Jackson MD Critical care provider statement: As reflected in the history, physical exam, orders, notes, and/or MDM, I was personally present while the patient was critically ill and provided critical care services for approximately 50 minutes, excluding time involved in separately billable procedures. ??Critical care was necessary to treat or prevent imminent or life-threatening deterioration of the following condition(s): ?? acute delirium ?? Hypotension, septic shock ?? sepsis and pneumonia ??Critical care was time spent by me providing the following: ? continuous telemetry, continuous pulse oximetry, interpretation of bedside monitors, imaging, and arterial/venous lab draws, serial bedside patient exams and resuscitation with fluids ?? Sepsis management, 30 mL per kg sepsis fluid bolus ?? supplemental oxygen ?? review prior cultures/records, obtain appropriate cultures and empiric broad coverage antibiotics ?? I provided emergent necessary critical care medicine services to this patient. I ordered and reviewed test results and/or imaging studies. I spent time discussing the management of this critically ill patient with consultants and the medical staff. I spent time discussing the management and therapeutic options for this critically ill patient with the patient themselves or with the appropriate designated surrogate decision-maker. I spent time documenting in the medical record. Gian Jackson MD IN CLINIC/BEDSIDE ORDERABLES Final Result * (ABNORMAL) Blood gas, venous (10/04/2021 2:51 PM CDT) [facility] Signature pH, Venous 7.29(L) 7.32 - 7.43 [facility] PCO2, Venous 53(H) 40 - 50 mmHg [facility] PO2, Venous 62 mmHg [facility] Comment: Interpretive Data No Reference Range Established Current Interpretive Data was last revised on 2017. HCO3 Venous, Calculated 26 20 - 30 mmol/L [facility] BE, venous -2 mmol/L [facility] Comment: nterpretive Data No Reference Range Established Current Interpretive Data was last revised on 2017. Blood 10/04/2021 2:51 PM CDT 10/04/2021 2:57 PM CDT Gian Jackson MD LAB BLOOD ORDERABLES Final R esult Performing Organization Address [facility]/ZIP Co de Phone Number [facility] [address] Department [place] [address] * Blood culture Blood Peripheral (10/04/2021 2:21 PM CDT) Report Final Report: No growth [facility] Blood (Peripheral) 10/04/2021 2:21 PM CDT 10/04/2021 2:29 PM CDT Narrative [facility] - 10/10/2021 7:01 AM CDT From a different site than #1. Draw Blood cultures before administration of Antibiotics Result [facility] Alysha Ramirez MD LAB MICROBIOLOGY - GENERAL OR DERABLES Final Result Performing Organization Address [facility] Co de Phone Number [facility] [address] Department [place] [address] * Blood culture Blood Peripheral (10/04/2021 2:21 PM CDT) Report Final Report: No growth [facility] Blood (Peripheral) 10/04/2021 2:21 PM CDT 10/04/2021 2:29 PM CDT Narrative [facility] - 10/10/2021 7:01 AM CDT Draw Blood cultures before administration of Antibiotics Alysha Ramirez MD LAB MICROBIOLOGY - GENERAL OR DERABLES Final Result Performing Organization Address City/[facility]/ZIP Co de Phone Number [facility] [address] Department [place] [address] * Sepsis Lactate w/ Reflex (10/04/2021 2:21 PM CDT) Sepsis Lactate 1.3 0.7 - 2.0 mmol/L [facility] Blood 10/04/2021 2:21 PM CDT 10/04/2021 2:28 PM CDT us Alysha Ramirez MD LAB BLOOD ORDERABLES Final Re sult [facility] [address] Department [place] [address] * XR Chest Pa Lateral 2 Views (10/04/2021 2:01 PM CDT) Anatomical Region Laterality Modality Body, Chest N/A Computed Radiogr aphy 10/04/2021 2:04 PM CDT Impressions 10/04/2021 2:04 PM CDT 1. ??No sign of pneumonia detected. 2. ??Mild cardiomegaly without signs of acute CHF or pulmonary edema. 3. ??No sign of a pleural effusion or pneumothorax. 4. ??Atherosclerotic change of aorta. Electronically signed by: Vicente Verma M.D. Narrative 10/04/2021 2:04 PM CDT Exam: XR CHEST PA LATERAL 2 VIEWS Date/Time of Exam: 10/04/2021 1:55 PM Reason For Exam: c/f infection. Diagnosis: Altered mental status. Findings: Comparison made with the exam of 06/17/2021. There is chronic mild enlargement of the heart with left ventricular prominence. ??The aorta is ectatic and mildly calcified. ??Pulmonary vascularity appears normal. ??The lungs are clear of acute infiltrates. ??The lungs are expanded well. ??The pleural spaces are clear. ??The bony thorax appears intact. Procedure Note Vicente Verma MD - 10/04/2021 Exam: XR CHEST PA LATERAL 2 VIEWS Date/Time of Exam: 10/04/2021 1:55 PM Reason For Exam: c/f infection. Diagnosis: Altered mental status. Findings: Comparison made with the exam of 06/17/2021. There is chronic mild enlargement of the heart with left ventricular prominence. The aorta is ectatic and mildly calcified. Pulmonary vascularity appears normal. The lungs are clear of acute infiltrates. The lungs are expanded well. The pleural spaces are clear. The bony thorax appears intact. IMPRESSION: 1. No sign of pneumonia detected. 2. Mild cardiomegaly without signs of acute CHF or pulmonary edema. 3. No sign of a pleural effusion or pneumothorax. 4. Atherosclerotic change of aorta. Electronically signed by: Vicente Verma M.D. us Alysha Ramirez MD IMG XR PROCEDURES Final Resul t * CT Head WO Contrast (10/04/2021 1:58 PM CDT) Anatomical Region Laterality Modality Head and Neck N/A Computed Tomogra phy 10/04/2021 2:08 PM CDT Impressions 10/04/2021 2:08 PM CDT Interval resolution of small volume intraventricular hemorrhage. ??No new acute intracranial hemorrhage. No large acute territory infarct. Electronically signed by: Lotus Michael M.D. Narrative 10/04/2021 2:08 PM CDT EXAMINATION: CT head without contrast HISTORY: 71-year-old male with PMH subarachnoid hemorrhage, AFib no longer on anticoagulation, orthostatic hypotension, prior encephalopathy/delirium, BPH,?prior left femur fracture s/p?ORIF,?anemia, dementia?(A&O x1 at baseline per pt's )?who presents from his nursing facility after being found unresponsive in his wheelchair. . TECHNIQUE: Noncontrast CT of the brain was performed with images acquired from skull base to vertex. COMPARISON: Comparison is made to a prior CT dated 07/02/2021. FINDINGS: There has been interval resolution in small volume intraventricular hemorrhage in the occipital horns of the lateral ventricles. There is no new acute intracranial hemorrhage. There is diffuse cerebral volume loss with associated ex vacuo dilatation of the ventricles. The ventricles are unchanged in size and morphology. ??Areas of hypoattenuation in the periventricular and deep white matter are nonspecific but may be seen in the setting of chronic small vessel ischemic disease. No mass effect or midline shift is present. Bilateral lens replacements are present. ??A hyperdense focus in the left globe is unchanged and may represent vitreous calcification. Trace bilateral mastoid effusions. Mild mucosal thickening in the right maxillary sinus. No fractures are identified. ??Atherosclerotic vascular calcifications are present, severe. Stable scalp scar /nodule at the vertex. Procedure Note Mook Michael, Lotus Laird MD - 10/04/2021 EXAMINATION: CT head without contrast HISTORY: 71-year-old male with PMH subarachnoid hemorrhage, AFib no longer on anticoagulation, orthostatic hypotension, prior encephalopathy/delirium, BPH,?prior left femur fracture s/p?ORIF,?anemia, dementia?(A&O x1 at baseline per pt's )?who presents from his nursing facility after being found unresponsive in his wheelchair. . TECHNIQUE: Noncontrast CT of the brain was performed with images acquired from skull base to vertex. COMPARISON: Comparison is made to a prior CT dated 07/02/2021. FINDINGS: There has been interval resolution in small volume intraventricular hemorrhage in the occipital horns of the lateral ventricles. There is no new acute intracranial hemorrhage. There is diffuse cerebral volume loss with associated ex vacuo dilatation of the ventricles. The ventricles are unchanged in size and morphology. Areas of hypoattenuation in the periventricular and deep white matter are nonspecific but may be seen in the setting of chronic small vessel ischemic disease. No mass effect or midline shift is present. Bilateral lens replacements are present. A hyperdense focus in the left globe is unchanged and may represent vitreous calcification. Trace bilateral mastoid effusions. Mild mucosal thickening in the right maxillary sinus. No fractures are identified. Atherosclerotic vascular calcifications are present, severe. Stable scalp scar /nodule at the vertex. IMPRESSION: Interval resolution of small volume intraventricular hemorrhage. No new acute intracranial hemorrhage. No large acute territory infarct. Electronically signed by: Lotus Michael M.D. Alysha Ramirez MD IMG CT PROCEDURES Final Resul t * Urinalysis reflex to microscopic and culture Urine (10/04/2021 1:24 PM CDT) Color, ur Yellow Yellow [facility] Clarity, ur Clear Clear [facility] Specific gravity, ur 1.014 1.003 - 1.030 [facility] [facility], urine 6.5 [facility] Protein, ur ql Trace Negative [facility] Glucose, ur ql Negative Negative [facility] Ketones, ur Negative Negative [facility] Bilirubin, ur Negative Negative [facility] Blood, ur Negative Negative [facility] Urobilinogen, ur <2.0 <2.0 mg/dL [facility] Nitrite, ur Negative Negative [facility] Leukocyte esterase, ur Negative Negative [facility] UA reflex comment Reflex conditions for microscopic UA and culture not met. [facility] Urine 10/04/2021 1:24 PM CDT 10/04/2021 4:49 PM CDT Narrative [facility] - 10/04/2021 4:57 PM CDT ?? Urine pH is affected by diet, medications, systemic acid-base disturbances, and renal tubular function. ??pH may affect urinary stone formation. ??For example, urine pH below 6.0 may help reduce the tendency for calcium phosphate stones and pH greater than 6.0 may reduce the tendency for uric acid stone formation. Source: [facility] [employer]. Last revised 04-18-2017 us Gian Jackson MD LAB MICROBIOLOGY - GENERAL O RDERABLES Final Result [facility] [address] Department [place] [address] * ECG 12 lead (10/04/2021 1:23 PM CDT) 10/04/2021 1:23 PM CDT Narrative [facility] - 10/05/2021 8:17 PM CDT Vent Rate: 69 bpm RR Interval: 862 msec LA Interval: 0 msec QRS Duration: 83 msec QT Interval: 448 msec QTC Interval: 467 msec P-R-T [place]: 0 - 68 - 71 degrees ATRIAL FIBRILLATION PROLONGED QT INTERVAL ABNORMAL ECG Electronically Signed By: Andreas Wheeler MD [facility] us Gian Jackson MD ECG ORDERABLES Final Result [facility] * (ABNORMAL) Respiratory pathogen panel Nasopharyngeal (10/04/2021 1:22 PM CDT) Influenza A RNA Not Detected Not Detected [facility] Influenza B RNA Not Detected Not Detected [facility] RSV RNA Not Detected Not Detected [facility] COVID-19 RNA Detected(A) Not Detected [facility] Coronavirus 229E RNA Not Detected Not Detected [facility] Coronavirus HKU1 RNA Not Detected Not Detected [facility] Coronavirus NL63 RNA Not Detected Not Detected [facility] Coronavirus OC43 RNA Not Detected Not Detected [facility] Adenovirus DNA Not Detected Not Detected [facility] Metapneumovirus RNA Not Detected Not Detected [facility] Rhinovirus/Enterov irus RNA Not Detected Not Detected [facility] Parainfluenza 1 RNA Not Detected Not Detected [facility] Parainfluenza 2 RNA Not Detected Not Detected [facility] Parainfluenza 3 RNA Not Detected Not Detected [facility] Parainfluenza 4 RNA Not Detected Not Detected [facility] B. pertussis DNA Not Detected Not Detected [facility] B. parapertussis DNA Not Detected Not Detected [facility] C. pneumoniae DNA Not Detected Not Detected [facility] M. pneumoniae DNA Not Detected Not Detected [facility] Comment: Interpretive Data The InfraReDx FilmArray Respiratory Panel (RP2.1) assay is a multiplexed real-time PCR based nucleic acid test capable of simultaneous qualitative detection and identification of multiple respiratory viral and bacterial nucleic acids, including SARS Coronavirus 2 (the causative agent of COVID-19). The following bacteria, viruses and virus subtypes can be identified using the FilmArray RP2.1 assay: Bordetella pertussis, Bordetella parapertussis, Chlamydia pneumoniae, Mycoplasma pneumoniae, Adenovirus, SARS Coronavirus 2, seasonal coronaviruses (Coronavirus HKU1, Coronavirus NL63, Coronavirus 229E, and Coronavirus OC43), Influenza A, Influenza A subtype H1, Influenza A subtype H3, Influenza A subtype 2009 H1, Influenza B, Metapneumovirus, Parainfluenza 1, Parainfluenza 2, Parainfluenza 3, Parainfluenza 4, RSV, Rhinovirus/Enterovirus. Due to the genetic similarity between human Rhinovirus and Enterovirus, the FilmArray RP2.1 assay cannot reliably differentiate them. Coronavirus OC43 may cross-react with some isolates of Coronavirus HKU1. ??A dual positive result may be due to cross-reactivity or may indicate a co-infection. The detection and identification of specific viral and bacterial nucleic acids from individuals exhibiting signs and symptoms of a respiratory infection aids in the diagnosis of respiratory infection if used in conjunction with other clinical and epidemiological information. ??The results of this test should not be used as the sole basis for diagnosis, treatment, or other management decisions. ??Negative results in the setting of a respiratory illness may be due to infection with pathogens that are not detected by this test. ??Positive results do not rule out infection/co-infection with other organisms. ??The agent(s) detected by the FilmArray RP2.1 may not be the definite cause of disease. ??Additional testing (lab, imaging, etc.) may be necessary when evaluating a patient with possible respiratory tract infection. The FilmArray RP2.1 assay has FDA clearance for testing of MEDICAL UNIT SECRETARY swabs. ??The performance characteristics of this assay have been determined by [facility]. Current interpretive data was last revised on 2020. Nasopharyngeal 10/04/2021 1: 22 PM CDT 10/05/2021 9:50 AM CDT Elisa Oliva MD LAB MICROBIOLOGY - GENERAL ENA GRAFF Final Result [facility] [address] Department of Laboratories [place], [place] [id number] * eGFR (10/04/2021 1:22 PM CDT) [facility] eGFR 86 mL/min/1. 73 m2 [facility] Comment: Interpretive Data Reference Interval Normal [...] interpretive data was last reviewed 2021. Blood 10/04/2021 1:22 PM CDT 10/04/2021 1:45 PM CDT Gian Jackson MD LAB BLOOD ORDERABLES Final R esult Performing Organization Address City/[facility] Co de Phone Number [facility] [address] [email or web address] [address] * Magnesium (10/04/2021 1:22 PM CDT) Magnesium 1.9 1.4 - 2.5 mg/dL [facility] Blood 10/04/2021 1:22 PM CDT 10/04/2021 1:45 PM CDT Gian Jackson MD LAB BLOOD ORDERABLES Final R esult Performing Organization Address City/[facility] Co de Phone Number [facility] [address] Department [place] [address] * Phosphorus (10/04/2021 1:22 PM CDT) Pathologist [facility] Phosphorus, pl 4.0 2.3 - 4.5 mg/dL [facility] Blood 10/04/2021 1:22 PM CDT 10/04/2021 1:45 PM CDT Gian Jackson MD LAB BLOOD ORDERABLES Final R esult [facility] [address] Department [place] [address] * (ABNORMAL) Differential, auto (10/04/2021 1:22 PM CDT) [facility] Neutrophil abs 1.2(L) 1.7 - 6.5 K/cumm [facility] Imm gran abs 0.0 0.0 - 0.1 K/cumm [facility] Lymphocyte abs 1.0 0.8 - 3.3 K/cumm [facility] Monocyte abs 0.4 0.2 - 0.8 K/cumm [facility] Eosinophil abs 0.0 0.0 - 0.5 K/cumm [facility] Basophil abs 0.0 0.0 - 0.1 K/cumm [facility] Neutrophil pct 47.8 % [facility] Comment: Interpretive Data Percent cell count reference ranges are not reported, since discordance with absolute values may lead to misinterpretation of CBC data. Current Interpretive Data was last revised on 2017. Imm gran pct 0.4 % [facility] Comment: Interpretive Data Percent cell count reference ranges are not reported, since discordance with absolute values may lead to misinterpretation of CBC data. Current Interpretive Data was last revised on 2017. Lymphocyte pct 37.3 % [facility] Comment: Interpretive Data Percent cell count reference ranges are not reported, since discordance with absolute values may lead to misinterpretation of CBC data. Current Interpretive Data was last revised on 2017. Monocyte pct 14.1 % [facility] Comment: Interpretive Data Percent cell count reference ranges are not reported, since discordance with absolute values may lead to misinterpretation of CBC data. Current Interpretive Data was last revised on 2017. Eosinophil pct 0.0 % [facility] Comment: Interpretive Data Percent cell count reference ranges are not reported, since discordance with absolute values may lead to misinterpretation of CBC data. Current Interpretive Data was last revised on 2017. Basophil pct 0.4 % [facility] Comment: Interpretive Data Percent cell count reference ranges are not reported, since discordance with absolute values may lead to misinterpretation of CBC data. Current Interpretive Data was last revised on 2017. Blood 10/04/2021 1:22 PM CDT 10/04/2021 1:45 PM CDT us Gian Jackson MD LAB BLOOD ORDERABLES Final R esult [facility] [address] Department [place] [address] * (ABNORMAL) Influenza A/B, RSV, and COVID-19 PCR Nasopharyngeal (10/04/2021 1:22 PM CDT) COVID-19 RNA Positive(A) Negative [facility] Influenza A RNA Negative Negative [facility] Influenza B RNA Negative Negative [facility] RSV RNA Negative Negative [facility] Comment: Interpretive data: This test is performed using the [employer] Xpert Xpress CoV-2/Flu/RSV plus assay. This is a multiplex, real-time reverse transcriptase PCR assay intended for the qualitative detection of nucleic acid from SARS-CoV-2, influenza A, influenza B, and respiratory syncytial virus. This assay has been reviewed by the FDA for Emergency Use Authorization (EUA). The performance characteristics have been verified by the performing laboratory. Results must be considered in the clinical context, and a negative result does not rule out infection. Interpretive Data last revised 2021. Nasopharyngeal 10/04/2021 1: 22 PM CDT 10/04/2021 1:45 PM CDT Narrative [facility] - 10/04/2021 3:52 PM CDT Is the Patient experiencing symptoms consistent with COVID?->Unknown Reason for testing?->Bed placement or semi-private room us Alysha Ramirez MD LAB MICROBIOLOGY - GENERAL OR DERABLES Final Result Performing Organization Address [facility]/ZIP Co de Phone Number [facility] [address] Department [place] [address] * (ABNORMAL) Troponin T high-sensitivity series (baseline, 2hr, 4hr, 6hr) (10/04/2021 1:22 PM CDT) [facility] Trop T hs 30(H) <=22 ng/L [facility] Comment: Interpretive Data For further hscTnT resources including the diagnostic algorithm and an aid in interpretation, copy and paste this link: [email or web address].testcatalog.org/[email or web address] Current Interpretive Data last revised 2020. Blood 10/04/2021 1:22 PM CDT 10/04/2021 1:45 PM CDT us Gian Jackson MD LAB BLOOD ORDERABLES Final R esult Performing Organization Address [facility]/ZIP Co de Phone Number [facility] [address] [place] [address] * (ABNORMAL) CBC with auto differential (10/04/2021 1:22 PM CDT) [facility] WBC 2.6(L) 3.8 - 9.9 K/cumm [facility] Hgb 12.0(L) 13.0 - 17.5 g/dL [facility] Hct 36.4(L) 38.9 - 50.3 % [facility] Plt 122(L) 150 - 400 K/cumm [facility] MPV 10.9 9.1 - 12.3 fL [facility] RBC 3.81(L) 4.30 - 5.80 M/cumm [facility] MCV 95.5 81.3 - 96.4 fL [facility] MCH 31.5 27.1 - 33.3 pg [facility] MCHC 33.0 32.3 - 35.7 g/dL [facility] RDW CV 13.3 11.1 - 14.9 % [facility] RDW SD 46.7 35.7 - 48.1 fL [facility] NRBC abs 0.00 0.00 - 0.01 K/cumm [facility] Blood 10/04/2021 1:22 PM CDT 10/04/2021 1:45 PM CDT us Gian Jackson MD LAB BLOOD ORDERABLES Final R esult [facility] [address] Department [place] [address] * (ABNORMAL) Comprehensive metabolic panel (10/04/2021 1:22 PM CDT) Sodium 136 135 - 145 mmol/L [facility] Potassium, pl 3.3 3.3 - 4.9 mmol/L [facility] Chloride 102 97 - 110 mmol/L [facility] CO2 26 22 - 32 mmol/L [facility] Anion gap 8 2 - 15 mmol/L [facility] BUN 10 8 - 25 mg/dL [facility] Creatinine 0.95 0.80 - 1.30 mg/dL [facility] Glucose 121 70 - 199 mg/dL [facility] Comment: Interpretive Data Fasting glucose [...] classification and Diagnosis of Diabetes Diabetes Care 2017;40 (Suppl. 1):S11. Current interpretive data was last revised 2017. Calcium 8.5 8.5 - 10.3 mg/dL [facility] Bilirubin, total 0.4 0.1 - 1.2 mg/dL [facility] Protein, pl 5.5(L) 6.5 - 8.5 g/dL [facility] Albumin 3.2(L) 3.5 - 5.0 g/dL [facility] Alk phos 118 40 - 130 Units/L [facility] ALT 17 7 - 55 Units/L [facility] AST 32 10 - 50 Units/L [facility] Blood 10/04/2021 1:22 PM CDT 10/04/2021 1:45 PM CDT us Gian Jackson MD LAB BLOOD ORDERABLES Final R esult [facility] [address] Department [place] [address] documented in this encounter Visit Diagnoses Diagnosis Sepsis due to COVID-19 (CMS/HCC) (HCC)- Primary Disorientation Other general symptoms Hypothermia, initial encounter Hypotension, unspecified hypotension type Pneumonia of right lower lobe due to infectious organism Septic shock (HCC) Chronic systolic heart failure (CMS/HCC) (HCC) Chronic systolic heart failure TBI (traumatic brain injury) (HCC) Intracranial injury of other and unspecified nature, without mention of open intracranial wound, unspecified state of consciousness Orthostatic hypotension COPD (chronic obstructive pulmonary disease) (HCC) Chronic airway obstruction, not elsewhere classified Benign prostatic hyperplasia with lower urinary tract symptoms Septic shock (HCC) documented in this encounter Admitting Diagnoses Diagnosis Sepsis due to COVID-19 (CMS/HCC) (HCC) Septic shock (HCC) documented in this encounter Administered Medications Inactive Administered Medications - up to 3 most recent administrations Medication Order MAR Action Action Date Dose Rate Site acetaminophen (TYLENOL) tablet 650 mg 650 mg, oral, Every 4 hours PRN, 1st line for pain, fever, fever greater than 38.3 C, Starting on Zoe 10/05/21 at 0021, Indications: Fever, PainIndications:Fever,Pain Given 10/25/2021 4:40 PM CDT 650 mg Given 10/09/2021 11:01 AM CDT 650 mg amLODIPine (NORVASC) tablet 5 mg 5 mg, oral, Daily, First dose on 10/28/21 at 0900 Given 11/01/2021 9:17 AM CDT 5 mg Given 10/31/2021 10:08 AM CDT 5 mg Given 10/30/2021 9:56 AM CDT 5 mg aspirin enteric coated tablet 81 mg 81 mg, oral, Daily, First dose on Sat10/05/21 at 0900, Do not crush, chew, cut, dissolve, open or otherwise manipulate tablet/capsule. Given 10/09/2021 11:0 1 AM CDT 81 mg Given 10/08/2021 1:13 PM CDT 81 mg Given 10/07/2021 8:18 AM CDT 81 mg aspirin enteric coated tablet 81 mg 81 mg, oral, 2 times daily, First dose on Sat10/08/21 at 1330, Do not crush, chew, cut, dissolve, open or otherwise manipulate tablet/capsule., Indications: Deep Vein Thrombosis PreventionIndications:Deep Vein Thrombosis Prevention Given 10/10/2021 8:48 AM CDT 81 mg Given 10/09/2021 8:30 PM CDT 81 mg Given 10/09/2021 8:02 AM CDT 81 mg aspirin enteric coated tablet 81 mg 81 mg, oral, Daily, First dose on Sat10/11/21 at 0900, Do not crush, chew, cut, dissolve, open or otherwise manipulate tablet/capsule. Given 11/01/2021 9:17 AM CDT 81 mg Given 10/31/2021 10:00 AM CDT 81 mg Given 10/30/2021 9:56 AM CDT 81 mg benzonatate (TESSALON) capsule 100 mg 100 mg, oral, 3 times daily, First dose on Sat10/20/21 at 1600, Do not crush, chew, cut, dissolve, open or otherwise manipulate tablet/capsule., Indications: CoughIndications:Cough Given 11/01/2021 9:29 PM CDT 100 mg Given 11/01/2021 5:17 PM CDT 100 mg Given 11/01/2021 9:17 AM CDT 100 mg budesonide-formoteroL (SYMBICORT) 80-4.5 mcg/actuation inhaler 2 puff 2 puff, inhalation, 2 times daily (disaster response director), First dose on Sat10/05/21 at 0800, I /authorizing provider attest that the patient meets the approved [facility] Use Criteria: Yes Given 10/09/2021 8:33 PM CDT 2 puffs Given 10/09/2021 8:10 AM CDT 2 puffs Given 10/08/2021 8:50 PM CDT 2 puffs ceFAZolin (ANCEF) 2,000 mg/20 mL in sterile water (premix) 2,000 mg 2,000 mg, intravenous, at 400 mL/hr, Administer over 3 Minutes, Every 8 hours, First dose on Sat10/08/21 at 1800, For 2 doses, Beginning 8 hours after last edna-operative dose., Indications: Prophylaxis, SurgicalIndications:Prophylaxis, Surgical Given 10/09/2021 2:39 AM CDT 2,000 mg 400 mL/hr Given 10/08/2021 4:58 PM CDT 2,000 mg 400 mL/hr cefepime (MAXIPIME) 2,000 mg in sodium chloride 0.9% 100 mL IVPB 2,000 mg, intravenous, at 200 mL/hr, Administer over 30 Minutes, Every 8 hours scheduled, First dose on Sat10/04/21 at 1419, Mini-Bag Plus bag, Indications: SepsisIndications:Sepsis New Bag 10/06/2021 6:39 AM CDT 2,000 mg 200 mL /hr New Bag 10/05/2021 10:56 PM CDT 2,000 mg 200 mL/hr New Bag 10/05/2021 2:05 PM CDT 2,000 mg 200 mL/hr dexAMETHasone (DECADRON) 4 mg/mL injection 6 mg 6 mg, intravenous, Administer over 2 Minutes, Once, On Sat10/04/21 at 1713, For 1 dose Given 10/04/2021 5:59 PM CDT 6 mg enoxaparin (LOVENOX) syringe 40 mg 40 mg, subcutaneous, Daily (for enoxaparin), First dose on Zoe 10/05/21 at 2100, Indications: Deep Vein Thrombosis PreventionIndications:Deep Vein Thrombosis Prevention Given 10/09/2021 8:31 PM CDT 40 mg Left Lower Abdomen Given 10/06/2021 8:55 PM CDT 40 mg Le ft Lower Abdomen Given 10/05/2021 10:15 PM CDT 40 mg L eft Lower Abdomen enoxaparin (LOVENOX) syringe 40 mg 40 mg, subcutaneous, Daily (for enoxaparin), First dose on Sat10/10/21 at 2100, Indications: Deep Vein Thrombosis PreventionIndications:Deep Vein Thrombosis Prevention Given 11/01/2021 9:29 PM CDT 40 mg Left Lower Abdomen Given 10/31/2021 8:10 PM CDT 40 mg Le ft Lower Abdomen Given 10/30/2021 10:18 PM CDT 40 mg L eft Lower Abdomen folic acid (FOLVITE) tablet 1 mg 1 mg, oral, Daily, First dose on Sat10/05/21 at 0900 Given 11/01/2021 9:17 AM CDT 1 mg Given 10/31/2021 10:08 AM CDT 1 mg Given 10/30/2021 9:56 AM CDT 1 mg HYDROcodone-acetaminophen (NORCO) 5-325 mg per tablet 1 tablet 1 tablet, oral, Every 4 hours PRN, 1st line for pain, Starting on 10/08/21 at 1249, May repeat in 1 hour if pain is uncontrolled or increasing. Max 2 doses within 1 dosing interval., Indications: PainIndications:Pain Given 10/23/2021 4:11 PM CDT 1 tablet Given 10/17/2021 3:26 AM CDT 1 tablet Given 10/14/2021 5:43 PM CDT 1 tablet losartan (COZAAR) tablet 25 mg 25 mg, oral, Daily, First dose on Sat10/25/21 at 1600 Given 10/26/2021 9:19 AM CDT 25 mg Given 10/25/2021 3:30 PM CDT 25 mg losartan (COZAAR) tablet 50 mg 50 mg, oral, Daily, First dose (after last modification) on Sat10/27/21 at 0900 Given 11/01/2021 9:17 AM CDT 50 mg Given 10/31/2021 10:10 AM CDT 50 mg Given 10/30/2021 9:56 AM CDT 50 mg magnesium sulfate 2 g/50 mL in water (premix) 2 g 2 g, intravenous, Administer over 60 Minutes, Once, On 10/07/21 at 1130, For 1 dose Restarted 10/07/2021 12:48 PM CDT metoprolol tartrate (LOPRESSOR) immediate release tablet 100 mg 100 mg, oral, 2 times daily, First dose (after last modification) on Sat10/07/21 at 0900 Given 11/01/2021 9:29 PM CDT 100 mg Given 11/01/2021 9:18 AM CDT 100 mg Given 10/31/2021 8:10 PM CDT 100 mg metoprolol tartrate (LOPRESSOR) immediate release tablet 25 mg 25 mg, oral, 2 times daily, First dose (after last modification) on Sat10/05/21 at 1445 Given 10/06/2021 9:52 AM CDT 25 mg Given 10/05/2021 10:15 PM CDT 25 mg Given 10/05/2021 2:46 PM CDT 25 mg metoprolol tartrate (LOPRESSOR) immediate release tablet 50 mg 50 mg, oral, 2 times daily, First dose (after last modification) on Sat10/06/21 at 2100 Given 10/06/2021 8:54 PM CDT 50 mg multivit witsiest-kpgz-ER-calcium (THERA-M) tablet 1 tablet 1 tablet, oral, Daily, First dose on Sat10/25/21 at 1600 Given 11/01/2021 9:18 AM CDT 1 tablet Given 10/31/2021 10:08 AM CDT 1 tablet Given 10/30/2021 9:56 AM CDT 1 tablet ondansetron (ZOFRAN) injection 4 mg 4 mg, intravenous, Administer over 2 Minutes, Every 6 hours PRN, nausea, vomiting, if not tolerating PO, Starting on Sat10/05/21 at 0021, Indications: Nausea and VomitingIndications:Nausea and Vomiting ondansetron ODT (ZOFRAN-ODT) disintegrating tablet 4 mg 4 mg, oral, Every 6 hours PRN, nausea, vomiting, Starting on Sat10/05/21 at 0021, Indications: Nausea and VomitingIndications:Nausea and Vomiting Given 10/07/2021 1:19 PM CDT [address] (PROTONIX) extended release tablet 40 mg 40 mg, oral, Daily, First dose on Sat10/05/21 at 0900, Do not crush, chew, cut, dissolve, open or otherwise manipulate tablet/capsule., Indications: Treatment of Non-Bleeding Gastric DisorderIndications:Treatment of Non-Bleeding Gastric Disorder Given 11/01/2021 9:17 AM CDT 40 mg Given 10/31/2021 10:08 AM CDT 40 mg Given 10/30/2021 9:56 AM CDT 40 mg potassium chloride ER (KLOR-CON) extended release tablet 20 mEq 20 mEq, oral, Once, On Sat10/06/21 at 1200, For 1 dose, Do not crush, chew, cut, dissolve, open or otherwise manipulate tablet/capsule. Given 10/06/2021 12:17 PM CDT 20 mEq potassium chloride ER (KLOR-CON) extended release tablet 30 mEq 30 mEq, oral, Every 4 hours, First dose on Sat10/07/21 at 0800, For 2 doses, Total dose = 60 mEq Do not crush, chew, cut, dissolve, open or otherwise manipulate tablet/capsule. Given 10/07/2021 11:46 AM CDT 30 mEq Given 10/07/2021 8:18 AM CDT 30 mEq pravastatin (PRAVACHOL) tablet 40 mg 40 mg, oral, Daily, First dose on Sat10/05/21 at 0900 Given 11/01/2021 9:17 AM CDT 40 mg Given 10/31/2021 10:08 AM CDT 40 mg Given 10/30/2021 9:56 AM CDT 40 mg QUEtiapine (SEROquel) tablet 25 mg 25 mg, oral, Every 6 hours PRN, agitation, Starting on Sat10/25/21 at 1512 remdesivir (VEKLURY) 100 mg/270 mL in sodium chloride 0.9% infusion (premix) 100 mg 100 mg, intravenous, at 270 mL/hr, Administer over 60 Minutes, Every 24 hours, First dose on Sat10/05/21 at 1704, For 4 doses, Do not shake or tube., [facility] appropriate use criteria for remdesivir are limited to the following below options. It is recommended that therapy for infections outside of these indications be discussed with infectious diseases, if available. Laboratory- confirmed severe and/or critical COVID-19, Indications: COVID-19Indications:COVID-19 New Bag 10/08/2021 4:32 PM CDT 100 mg 27 0 mL/hr New Bag 10/07/2021 5:04 PM CDT 100 mg 270 mL/hr New Bag 10/06/2021 4:42 PM CDT 100 mg 270 mL/hr remdesivir (VEKLURY) 200 mg/290 mL in sodium chloride 0.9% infusion (premix) 200 mg 200 mg, intravenous, at 290 mL/hr, Administer over 60 Minutes, Every 24 hours, First dose on Sat10/04/21 at 1723, For 1 dose, Do not shake or tube., [facility] appropriate use criteria for remdesivir are limited to the following below options. It is recommended that therapy for infections outside of these indications be discussed with infectious diseases, if available. Laboratory- confirmed severe and/or critical COVID-19, Indications: COVID-19Indications:COVID-19 New Bag 10/04/2021 6:00 PM CDT 200 mg 29 0 mL/hr sodium chloride 0.9% bolus 1,000 mL 1,000 mL, intravenous, at 1,000 mL/hr, Administer over 1 Hours, Once, On Sat10/04/21 at 1413, For 1 dose New Bag 10/04/2021 2:12 PM CDT 1,000 mL 1000 mL/hr sodium chloride 0.9% bolus 1,400 mL 1,400 mL, intravenous, at 1,400 mL/hr, Administer over 1 Hours, Once, On Sat10/04/21 at 1419, For 1 dose New Bag 10/04/2021 3:01 PM CDT 1,400 mL 1400 mL/hr terazosin (HYTRIN) capsule 10 mg 10 mg, oral, Nightly, First dose on 10/07/21 at 2100 Given 11/01/2021 9:28 PM CDT 10 mg Given 10/31/2021 8:09 PM CDT 10 mg Given 10/30/2021 10:18 PM CDT 10 mg thiamine (VITAMIN B1) tablet 100 mg 100 mg, oral, Every morning, First dose on Zoe 10/05/21 at 0900, Indications: Thiamine DeficiencyIndications:Thiamine Deficiency Given 11/01/2021 9:18 AM CDT 10 0 mg Given 10/31/2021 10:08 AM CDT 100 mg Given 10/30/2021 9:56 AM CDT 100 mg vancomycin 1250 mg/250 mL in sodium chloride 0.9% (premix) 1,250 mg 1,250 mg (rounded from 1,210.5 mg = 15 mg/kg ? 80.7 kg), intravenous, Administer over 60 Minutes, Every 12 hours, First dose on Sat10/04/21 at 1500, Indications: SepsisIndications:Sepsis New Bag 10/05/2021 3:31 AM CDT 1,250 mg New Bag 10/04/2021 3:45 PM CDT 1,250 mg documented in this encounter Discontinued Medications Medication Sig Discontinue Reason Start Date End Da te albuterol 2.5 mg /3 mL (0.083 %) nebulizer solutionIndications:Br onchospastic Pulmonary Disease Take 1.5 mL (1.25 mg total) by nebulization every 6 (six) hours as needed for wheezing 07/07/2021 10/04/2021 fluticasone furoate-vilanteroL (BREO ELLIPTA) 100-25 mcg/dose diskus inhaler Inhale 1 puff daily Rinse mouth with water after use. Do not swallow. 07/07/2021 10/04/2021 folic acid (FOLVITE) 1 mg tablet Take 1 tablet (1 mg total) by mouth daily 02/22/2020 10/04/2021 melatonin 5 mg capsule Take 5 mg by mouth nightly 10/04/[address] (PROTONIX) 40 mg EC tabletIndications:Stre ss Ulcer Prophylaxis Take 1 tablet (40 mg total) by mouth daily 02/23/2020 10/04/2021 mupirocin (BACTROBAN) 2 % creamIndications:perit garcia dialysis catheter care Apply topically 3 (three) times a day 10/04/2021 senna 1.76 mg/mL syrup Administer 5 mL (8.8 mg total) per feeding tube 2 (two) times a day 07/07/2021 10/04/2021 terazosin (HYTRIN) 10 mg capsule Take 1 capsule (10 mg total) by mouth nightly 02/22/2020 10/04/2021 documented as of this encounter Historical Medications * This list may reflect changes made after this encounter. terazosin (HYTRIN) 10 mg capsule Take 1 capsule (10 mg total) by mouth daily senna (SENOKOT) 8.6 mg tablet Take 1 tablet by mouth 2 (two) times a day folic acid (FOLVITE) 1 mg tablet Take 1 tablet (1 mg total) by mouth daily albuterol 2.5 mg /3 mL (0.083 %) nebulizer solution Take 3 mL (2.5 mg total) by nebulization every 6 (six) hours as needed for wheezing pantoprazole DR (PROTONIX) 40 mg EC tablet Take 1 tablet (40 mg total) by mouth daily 3 fluticasone furoate-vilanter oL (BREO ELLIPTA) 100-25 mcg/dose diskus inhaler Inhale 1 puff once daily Rinse mouth with water after use. Do not swallow. 3 added in this encounter Active and Recently Administered Medications Times are shown in CDT. Scheduled Medication Order 10/30/2021 10/31/2021 11/01/2021 amLODIPine (NORVASC) tablet 5 mg 5 mg, oral, Daily, First dose on Sat10/28/21 at 0900 0956 (Given - Provider: Paradise Mccormick RN) 1008 (Given - Provider: Paradise Mccormick RN) 0917 (Given - Provider: Alba Martinez RN) aspirin enteric coated tablet 81 mg 81 mg, oral, Daily, First dose on Sat10/11/21 at 0900, Do not crush, chew, cut, dissolve, open or otherwise manipulate tablet/capsule. 0956 (Given - Provider: Paradise Mccormick RN) 1000 (Given - Provider: Paradise Mccormick RN) 0917 (Given - Provider: Alba Martinez, GAURAV) benzonatate (TESSALON) capsule 100 mg 100 mg, oral, 3 times daily, First dose on Sat10/20/21 at 1600, Do not crush, chew, cut, dissolve, open or otherwise manipulate tablet/capsule., Indications: Cough 0956 (Given - Provider: Paradise Mccormick RN)1630 (Given - Provider: Paradise Mccormick RN)2218 (Given - Provider: Brittany Bradley RN) 1008 (Given - Provider: Paradise Mccormick RN)1700 (Given - Provider: Paradise Mccormick RN)2009 (Given - Provider: Brittany Bradley RN) 0917 (Given - Provider: Alba Martinez RN)1717 (Given - Provider: Alba Martinez RN)2128 (Given - Provider: Brittany Bradley RN) enoxaparin (LOVENOX) syringe 40 mg 40 mg, subcutaneous, Daily (for enoxaparin), First dose on Sat10/10/21 at 2100, Indications: Deep Vein Thrombosis Prevention 2218 (Given - Provider: Brittany Bradley RN) 2009 (Given - Provider: Brittany Bradley RN) 2128 (Given - Provider: Brittany Bradley RN) folic acid (FOLVITE) tablet 1 mg 1 mg, oral, Daily, First dose on Sat10/05/21 at 0900 0956 (Given - Provider: Paradise Mccormick RN) 1008 (Given - Provider: Paradise Mccormick RN) 09 (Given - Provider: Alba Martinez RN) losartan (COZAAR) tablet 50 mg 50 mg, oral, Daily, First dose (after last modification) on Sat10/27/21 at 0900 0956 (Given - Provider: Paradise Mccormick RN) 1010 (Given - Provider: Paradise Mccormick RN) 0917 (Given - Provider: Alba Martinez RN) metoprolol tartrate (LOPRESSOR) immediate release tablet 100 mg 100 mg, oral, 2 times daily, First dose (after last modification) on Sat10/07/21 at 0900 0956 (Given - Provider: Paradise Mccormick RN)2218 (Given - Provider: Brittany Bradley RN) 1007 (Given - Provider: Paradise Mccormick RN)2009 (Given - Provider: Brittany Bradley RN) 917 (Given - Provider: Alba Martinez RN)2128 (Given - Provider: Brittany Bradley RN) multivit wgdkokku-nlox-CU-calci um (THERA-M) tablet 1 tablet 1 tablet, oral, Daily, First dose on Sat10/25/21 at 1600 0956 (Given - Provider: Paradise Mccormick RN) 1008 (Given - Provider: Paradise Mccormick RN) 0918 (Given - Provider: Alba Martinez RN) pantoprazole DR (PROTONIX) extended release tablet 40 mg 40 mg, oral, Daily, First dose on Zoe 10/05/21 at 0900, Do not crush, chew, cut, dissolve, open or otherwise manipulate tablet/capsule., Indications: Treatment of Non-Bleeding Gastric Disorder 0956 (Given - Provider: Paradise Mccormick RN) 1008 (Given - Provider: Paradise Mccormick RN) 0917 (Given - Provider: Alba Martinez, GAURAV) pravastatin (PRAVACHOL) tablet 40 mg 40 mg, oral, Daily, First dose on Zoe 10/05/21 at 0900 0956 (Given - Provider: Paradise Mccormick RN) 1008 (Given - Provider: Paradise Mccormick RN) 0917 (Given - Provider: Alba Martinez, GAURAV) terazosin (HYTRIN) capsule 10 mg 10 mg, oral, Nightly, First dose on 10/07/21 at 2100 2218 (Given - Provider: Brittany Bradley RN) 2008 (Given - Provider: Brittany Bradley RN) 2127 (Given - Provider: Brittany Bradley RN) thiamine (VITAMIN B1) tablet 100 mg 100 mg, oral, Every morning, First dose on Zoe 10/05/21 at 0900, Indications: Thiamine Deficiency 0956 (Given - Provider: Paradise Mccormick RN) 1008 (Given - Provider: Paradise Mccormick RN) 0918 (Given - Provider: Alba Martinez, GAURAV) PRN Medication Order 10/30/2021 10/31/2021 11/01/2021 acetaminophen (TYLENOL) tablet 650 mg 650 mg, oral, Every 4 hours PRN, 1st line for pain, fever, fever greater than 38.3 C, Starting on Zoe 10/05/21 at 0021, Indications: Fever, Pain HYDROcodone-acetaminophen (NORCO) 5-325 mg per tablet 1 tablet 1 tablet, oral, Every 4 hours PRN, 1st line for pain, Starting on 10/08/21 at 1249, May repeat in 1 hour if pain is uncontrolled or increasing. Max 2 doses within 1 dosing interval., Indications: Pain ondansetron (ZOFRAN) injection 4 mg(Linked Group 1) 4 mg, intravenous, Administer over 2 Minutes, Every 6 hours PRN, nausea, vomiting, if not tolerating PO, Starting on Zoe 10/05/21 at 0021, Indications: Nausea and Vomiting ondansetron ODT (ZOFRAN-ODT) disintegrating tablet 4 mg(Linked Group 1) 4 mg, oral, Every 6 hours PRN, nausea, vomiting, Starting on Zoe 10/05/21 at 0021, Indications: Nausea and Vomiting QUEtiapine (SEROquel) tablet 25 mg 25 mg, oral, Every 6 hours PRN, agitation, Starting on Sat10/25/21 at 1512 Linked Groups Order Group 1: ondansetron ODT (ZOFRAN-ODT) disintegrating tablet 4 mgJump to med 4 mg, oral, Every 6 hours PRN, nausea, vomiting, Starting on Oze 10/05/21 at 0021, Indications: Nausea and Vomiting Or ondansetron (ZOFRAN) injection 4 mgJump to med 4 mg, intravenous, Administer over 2 Minutes, Every 6 hours PRN, nausea, vomiting, if not tolerating PO, Starting on Zoe 10/05/21 at 0021, Indications: Nausea and Vomiting documented in this encounter Orders Medications Ordered That Bimal ht Not Have Been Administered Count Last Ordered Date First Ordered Date QUEtiapine (SEROquel) tablet 25 mg 2021 albuterol 2.5 mg /3 mL (0.08 3 %) nebulizer solution 2.5 mg 10/08/2021 bupivacaine-EPINEPHrine (MAR MITCHELL with EPI) 0.25 %-1:200,000 preservative free injection 10/08/2021 diphenhydrAMINE (BENADRYL) i njection 12.5 mg 10/08/2021 fentaNYL (SUBLIMAZE) preserv ative free injection 25 mcg 10/08/2021 haloperidol (HALDOL) injection 1 mg 10/08 HYDROmorphone (DILAUDID) injection 0.2 mg 10/08/2021 HYDROmorphone (DILAUDID) injection 0.4 mg 10/08/2021 insulin lispro (HumaLOG, ADM ELOG) 100 unit/mL injection 1-5 Units 10/08/2021 labetaloL (NORMODYNE,TRANDAT E) injection 5 mg 1 10/08/2021 meperidine (DEMEROL) preserv ative free injection 12.5 mg 1 10/08/2021 naloxone (NARCAN) 0.4 mg/mL injection 0.04-0.4 mg 1 10/08/2021 ondansetron (ZOFRAN) injection 4 mg 2 10/0810/05/2021 oxyCODONE (ROXICODONE) tablet 5 mg 1 2021 racepinephrine (ASTHMANEFRIN ) 2.25 % nebulizer solution 0.5 mL 1 10/08/2021 sodium chloride 0.9% irrigation 1 potassium chloride ER (KLOR- CON) extended release tablet 40 mEq 1 10/06/2021 dexAMETHasone (DECADRON) tablet 6 mg 1 09/08 metoprolol tartrate (LOPRESS OR) immediate release tablet 100 mg 1 10/05/2021 Lab Orders Without Results Count Last Ordered D ate First Ordered Date POCT GLUCOSE DEVICE 17 10/28/2021 10/09/19 22 Diet Count Last Ordered Date First Orde red Date ADULT DISCHARGE DIET 1 10/12/2021 Nursing Count Last Ordered Date First Orde red Date DISCHARGE ACTIVITY 1 10/12/2021 FOLLOW UP WITH ESTABLISHED PROVIDER 1 10/12 NURSING COMMUNICATION 1 10/08/2021 COOMBS CATHETER - DISCONTINUE 1 10/05/2021 STRAIGHT CATH 1 10/04/2021 Consult Count Last Ordered Date First Orde red Date IP CONSULT TO CARDIOLOGY 1 10/07/2021 IP CONSULT TO ORTHOPEDIC SURGERY 1 10/08/19 IP CONSULT TO SOCIAL WORK 1 10/05/2021 IV Count Last Ordered Date First Orde red Date SALINE LOCK IV 1 10/04/2021 Admission Count Last Ordered Date First Orde red Date ADMIT TO INPATIENT 1 10/04/2021 Discharge Count Last Ordered Date First Orde red Date DISCHARGE PATIENT 1 10/12/2021 CORE MEASURES Count Last Ordered Date First Ord ered Date REASON FOR NO VTE PROPHYLAXI S - HOSPITAL ADMISSION - MEDICATIONS 1 10/08/2021 documented in this encounter Additional Health Concerns Infection Onset Date Last Indicated Resolved Time MDR gram neg/ESBL Comment:06/16/2021 IP Review - Pt with scrotal abscess, but is not actively draining (last documented draining on 06/14). Pt remains intubated so requires trach aspirate for isolation discontinuation. Provider notified. Amanda Walker RN 12/19/2019 12/19/2019 COVID: Suspected 10/04/2021 10/04/2021 10/04/2021 3:52 PM CDT COVID19 Comment:Patient meets COVID recovered criteria. See note in comment field of COVID recovered flag. 10/04/2021 10/04/2021 10/16/2021 12:05 PM CDT COVID: Recovered Comment:CHATO Jackson, reports the patient [...] documented as of this encounter Care Teams Bobbin Washer Relationship Specialty Start Date End Date Jean-Claude Salazar MD [address] [place] [address] PCP - General Family Medicine 04/12/20 06/12/22 Jean-Claude Salazar MD [address] [place] [address] Family Medicine 04/12/20 Jessie Delvalle MD [address] [place] [address] Orthopedic Surgery 07/07/21 Sandip Barone MD [address] [place] [id number] Consulting Physician Neurosurgery 07/07/21 documented as of this encounter
--- OUTSIDE RECORDS SUMMARY | 2024-04-08 10:34 | XMS_ITS | Encounter Summary ---
Author Organization [facility] Healthcare Address [address] [place] [address] Care Team Providers Care Fine Chemicals Operator Name Role Phone Jean-Claude Crawford MD Primary Care Provider Jean-Claude Crawford MD Unavailable [phone] Jessie Delvalle MD Unavailable + Sandip Barone MD Unavailable [phone] Reason for Visit * Auth/Cert Specialty Diagnoses / Procedures Referred By Contvon t Referred To Contact Diagnoses Disorientation Hypothermia, initial encounter Septic shock (HCC) Pneumonia of right lower lobe due to infectious organism Hypotension, unspecified hypotension type Sepsis due to COVID-19 (CMS/HCC) (HCC) Procedures adm Referral ID Status Reason Start Date Expiration Date Visits Re quested Visits Authorized [id number] 1 1 Encounter Details Date Type Department Care Team (Late st Contact Info) Description 10/08/2021 10:03 AM CDT Anesthesia Event [facility] Operating Room [address] [place] [id number] Dianne Kemp MD [address] [facility] [place] [address] Clarence Guerin MD [address] [facility] [place], [place] [id number] Anesthesia Record Procedure Summary Procedure Name Responsible Anesthesiologist Anesthesia Start Time Anesthesia Stop Time INTRAMEDULLARY NAILING FEMUR (Right: Thigh) Dianne Kemp MD 10/08/21 1003 10/08/21 1137 Events Date Time Event Comment 10/08/2021 0723 1003 An Start 1007 In Room 1007 An Start Data 1013 An Induction The patient was reevaluated immediately before moderate or deep sedation use and before anesthesia induction. 1017 An Intubation 1025 Anesthesia Ready 1039 Proc Start 1039 Incision Start 1116 An Extubation 1117 Proc Fin 1119 Out of Room 1121 an stop data 1137 Handoff to RN I completed my handoff [...] Patient disposition at the time of handoff: No value filed. 1137 An Stop Meds Name Total fentaNYL 50 mcg lidocaine (CARDIAC) syringe 2 % 5 mL propofol 140 mg succinylcholine 100 mg rocuronium 30 mg phenylephrine 100 mcg/mL 600 mcg ePHEDrine 20 mg sugammadex 200 mg ondansetron 4 mg dexamethasone 4 mg/ml 8 mg phenylephrine (CON-SYNEPHRIN E) 10,000 mcg in sodium chloride 0.9% 250 mL (40 mcg/mL) infusion 1.1 mg ceFAZolin 2,000 mg dexmedeTOMIDine 10 mcg LR 1,000 mL * Agents Name O2 Air Sevoflurane Desflurane Inspired Desflurane Inspired Sevoflurane * Blood No blood administrations on file. Lines, Drains, and Airways Type Details Placement Removal RETIRED Wound 06/27/21; 1425; MASD (Moisture associated skin damage); Perineum; , buttocks; 03/10/24 (Retired LDA, Removed/Completed by Arieso with LDA Utility); 1213 (Retired LDA, Removed/Completed by Arieso with LDA Utility) 06/27/21 1425 by Ani Chavez RN 03/10/24 1213 by Discharge Provider, Automatic RETIRED Surgical Site 07/04/21; 1031; Le ft; Leg; 07/30/22; Not present on admission 07/04/21 1031 by Candis Wu RN 07/30/22 0000 by Renetta Wise, GAURAV Peripheral IV Placement Date: 10/07/21; Placement Time: 1234; Orientation: Right, Anterior; Location: Hand; Removal Date: 10/09/21; Removal Time: 0757 (not present at beginning of shift) 10/07/21 1234 by Karlee Gillis RN 10/09/21 0757 by Renetta Ledbetter, GAURAV RETIRED Surgical Site 10/08/21; 1035; Ri ght; Hip/trochanter; 07/30/22; Not present on admission 10/08/21 1035 by Miladys Flowers RN 07/30/22 0000 by Renetta Wise, GAURAV ETT Placement Date: 10/08/21; Placement Time: 1047 (created via procedure documentation); Mask Ventilation: 1; Technique: Direct laryngoscopy; Type: ETT - single; Single Lumen Tube Size: 7 mm; Cuffed: Yes; Location: Oral; Placement Verification: Auscultation, Capnometry; Removal Date: 10/08/21; Removal Time: 1116 10/08/21 1047 by Miley Clark CRNA 10/08/21 111 by Miley Clark CRNA Peripheral IV Placement Date: 10/08/21; Placement Time: 105 (created via procedure documentation); Catheter Size: 18 G; Orientation: Left; Location: Wrist; Site Prep: Chlorhexidine; Insertion Attempts: 1; Removal Date: 07/29/22; Removal Time: 204610/08/21 105 by Miley Clark CRNA 07/29/222046 by Jose Alfredo Avitia RN documented in this encounter Social History [...] any clubs o r organizations such as mandaeism groups, unions, fraternal or athletic groups, or [...] slept in a assisted (including now)? 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 Gender Identity Not on file Sexual Orientation Not on file documented as of this encounter OR Notes * Anesthesia Postprocedure Evaluation - Dianne Kemp MD - 10/08/2021 11:56 AM CDT Patient: Lloyd Redman Procedure Summary Date: 10/08/21 Room / Location: [facility] OPERATING ROOM 06 / [facility] OPERATING ROOM Anesthesia Start: 1003 Anesthesia Stop: 1137 Procedure: INTRAMEDULLARY NAILING FEMUR (Right Thigh) Diagnosis: (RIGHT HIP PAIN) Surgeons: Miguel Flores MD Responsible Provider: Dianne Kemp MD Anesthesia Type: general ASA Status: 3 Anesthesia Type: general Last vitals BP 103/78 Pulse 96 Temp 36.6 ??C (97.9 ??F) (Oral) Resp 14 SpO2 100% Anesthesia Post Evaluation Patient location during evaluation: PACU Patient participation: complete - patient participated Level of consciousness: follows simple commands and fully awake Pain score: 0 Pain management: adequate Airway patency: adequate Cardiovascular status: acceptable and hemodynamically stable Respiratory status: acceptable Hydration status: acceptable Pt is: normothermic Nausea/Vomiting status: none No complications documented. * Anesthesia Procedure Notes - Miley Mcmahon CRNA - 10/08/2021 10:58 AM CDTAssociated Order(s): Peripheral IV Catheter Peripheral IV Catheter Patient location: OR Staff: Placed by: Anesthesiologist: Dianne Kemp MD Preprocedure prep: Prep solution: chlorhexadine PPE: gloves and provider hat/mask PIV line: Laterality: left Site: wrist Catheter size: 18 g Technique: anatomical landmarks and direct visualization Procedure details: good blood return and occlusive dressing applied Number of attempts: 1 Assessment: Events: patient tolerated procedure well with no complications * Anesthesia Procedure Notes - Miley Mcmahon CRNA - 10/08/2021 10:46 AM CDTAssociated Order(s): Airway Airway Patient location: OR Urgency: elective Indications for airway management: anesthesia Difficult airway: no Staff: Placed by: BREAD STACKER: Miley Mcmahon CRNA Airway prep: Preoxygenated: yes Patient position: sniffing Mask difficulty assessment: 1 - vent by mask Sedation level during airway: GA Final airway details: Final airway type: endotracheal airway Tube type: ETT ETT size: 7.0 mm Cuffed: yes Technique used for successful ETT placement: direct laryngoscopy Insertion site: oral Cuff inflated with: air Placement verified by: auscultation and CO2 detection * Anesthesia Preprocedure Evaluation - Dianne Kemp MD - 10/07/2021 4:44 PM CDT Images from the original note were not included. Anesthesia Evaluation Lloyd Redman is a 71 y.o. male Per Admit HPI from 10/04/2021: 71 y.o. year old male with a pmhx of A-fib on no anticoagulation due to prior SAH, CHF, HTN, legally blind, A&Ox1 at baseline who presented to the ED after being found unresponsive in his wheelchair while at home (in assisted living). ?? In the ED here, he presented here with vitals notable for systolic in the 50s. Started on sepsis protocol, given 30 cc/kg fluids. BP improved and admitted to the floors. Per Family, patient has exhibited cognitive decline ever since his SAH in June. Procedure(s): INTRAMEDULLARY NAILING FEMUR, YOLANDA TABLE AND ARTHRAX REP, DR FLORES WILL CALL REP * No Diagnosis Codes entered * HISTORY Past Medical History Information obtained from: patient and chart. Neurological + TIA + Dementia/mild cognitive impairment Cardiovascular + Hypertension + CHF LVEF: >70%. + Atrial fibrillation/flutter - + DVT/PE Comments: Cleared by Cardiology, Dr. Wheeler. TTE (06/2021): SUMMARY: LA is mildly dilated. [...] + History of anemia Gastrointestinal + GERD Patient Active Problem List Diagnosis ??? Hypercholesterolemia ??? Hypertension ??? Heartburn ??? Intra-abdominal abscess (CMS/HCC) (HCC) ??? DVT (deep venous thrombosis) (CMS/HCC) (HCC) ??? Cholecystitis ??? Atrial fibrillation (CMS/HCC) (HCC) ??? Chronic systolic heart failure (CMS/HCC) (HCC) ??? TBI (traumatic brain injury) (CMS/HCC) (HCC) ??? SAH (subarachnoid hemorrhage) (CMS/HCC) (HCC) ??? Encephalopathy ??? Acute delirium ??? Scrotal abscess ??? Closed nondisplaced intertrochanteric fracture of left femur (CMS/HCC) (HCC) ??? Dysphagia ??? Orthostatic hypotension ??? Acute respiratory failure (HCC) ??? Acute on chronic anemia ??? Thrombocytopenia (CMS/HCC) (HCC) ??? COPD (chronic obstructive pulmonary disease) (CMS/HCC) (HCC) ??? Benign prostatic hyperplasia with lower urinary tract symptoms ??? Dementia (HCC) ??? Borderline hyperglycemia ??? Falls, subsequent encounter ??? Sepsis due to COVID-19 (CMS/HCC) (HCC) Past Medical History: Diagnosis Date [...] VASECTOMY Allergies Allergen Reactions ??? Penicillins Hives Med List Status: Pharmacy Complete Set By: Miguel Nieto [facility] at 10/04/2021 1:47 PM Taking? Last Dose Start Date End Date Provider acetaminophen (TYLENOL) 325 mg tablet 07/07/21 -- Julieta Tirado NP Take 2 tablets (650 mg total) by mouth every 4 (four) hours as needed for pain albuterol 2.5 mg /3 mL (0.083 %) nebulizer solution -- -- Manish Cabezas MD aspirin 81 mg enteric coated tablet -- -- Manish Cabezas MD cholecalciferol (VITAMIN D-3) 5,000 unit tablet -- -- Manish Cabezas MD fluticasone furoate-vilanteroL (BREO ELLIPTA) 100-25 mcg/dose diskus inhaler -- -- Manish Cabezas MD folic acid (FOLVITE) 1 mg tablet -- -- Manish Cabezas MD metoprolol (LOPRESSOR) 100 mg tablet 01/30/21 01/30/22 Abiodun Novak MD Take 1 tablet (100 mg total) by mouth 2 (two) times a day multivit,tx with iron,minerals (THERA-M ORAL) -- -- Manish Cabezas MD pantoprazole DR (PROTONIX) 40 mg EC tablet -- -- Manish Cabezas MD pravastatin (PRAVACHOL) 40 mg tablet -- -- Manish Cabezas MD ramelteon (ROZEREM) 8 mg tablet 07/07/21 07/07/22 Julieta Tirado, DIE ASSEMBLER Take 1 tablet (8 mg total) by mouth nightly senna (SENOKOT) 8.6 mg tablet -- -- Manish Cabezas MD terazosin (HYTRIN) 10 mg capsule -- -- Manish Cabezas MD thiamine (VITAMIN B1) 100 mg tablet -- -- Manish Cabezas MD Current Facility-Administered Medications: ??? acetaminophen (TYLENOL) tablet 650 mg, 650 mg, oral, Q4H PRN ??? aspirin enteric coated tablet 81 mg, 81 mg, oral, Daily, 81 mg at 10/07/21817 ??? budesonide-formoteroL (SYMBICORT) 80-4.5 mcg/actuation inhaler 2 puff, 2 puff, inhalation, BID (RT), 2 puff at 10/07/21725 ??? enoxaparin (LOVENOX) syringe 40 mg, 40 mg, subcutaneous, Daily-2099, 40 mg at 10/06/212054 ??? folic acid (FOLVITE) tablet 1 mg, 1 mg, oral, Daily, 1 mg at 10/07/21817 ??? magnesium sulfate 2 g/50 mL in water (premix) 2 g, 2 g, intravenous, Once, Stopped at 10/07/21 1350 ??? metoprolol tartrate (LOPRESSOR) immediate release tablet 100 mg, 100 mg, oral, BID, 100 mg at 10/07/21817 ??? ondansetron ODT (ZOFRAN-ODT) disintegrating tablet 4 mg, 4 mg, oral, Q6H PRN, 4 mg at 10/07/21 1319 OR ondansetron (ZOFRAN) injection 4 mg, 4 mg, intravenous, Q6H PRN ??? pantoprazole DR (PROTONIX) extended release tablet 40 mg, 40 mg, oral, Daily, 40 mg at ??? pravastatin (PRAVACHOL) tablet 40 mg, 40 mg, oral, Daily, 40 mg at 07/02/22 0818 ??? [COMPLETED] remdesivir (VEKLURY) 200 mg/290 mL in sodium chloride 0.9% infusion (premix) 200 mg, 200 mg, intravenous, Q24H, Stopped at 10/04/21 1910 FOLLOWED BY remdesivir (VEKLURY) 100 mg/270 mL in sodium chloride 0.9% infusion (premix) 100 mg, 100 mg, intravenous, Q24H, Stopped at 10/06/21 1803 ??? terazosin (HYTRIN) capsule 10 mg, 10 mg, oral, Nightly ??? thiamine (VITAMIN B1) tablet 100 mg, 100 mg, oral, QAM, 100 mg at 10/07/21 0818 Social History Tobacco Use Smoking Status Current Every Day Smoker ??? Packs/day: 1.00 ??? Types: Cigarettes ??? Start date: 1964 Smokeless Tobacco Never Used Substance and Sexual Activity Alcohol Use Yes Comment: limited Substance and Sexual Activity Drug Use Yes ??? Types: Alcohol Comment: Reportedly 3 shots of Tequila/day Family History Problem Relation Age of Onset ??? Hypertension Mother ??? Lung cancer Father ??? Cancer Father ??? Anesthesia problems Neg Hx Vitals: 10/07/21 0726 10/07/21 0815 10/07/21 1526 BP: 161/88 (!) 150/111 Pulse: 97 95 Resp: 18 18 Temp: 36.7 ??C (98 ??F) 36.6 ??C (97.8 ??F) SpO2: 99% 99% 94% PT: No results found for requested labs within last 720 hours. INR: No results found for requested labs within last 720 hours. APTT: No results found for requested labs within last 720 hours. Hgb A1C: No results found for requested labs within last 720 hours. CBC RBC: 10/07/2021: 3.72 M/cumm (L) RDW: No results found for requested labs within last 720 hours. MCHC: 10/07/2021: 33.1 g/dL MCH: 10/07/2021: 31.2 pg MCV: 10/07/2021: 94.1 fL Hct: 10/07/2021: 35.0 % (L) Hgb: 10/07/2021: 11.6 g/dL (L) WBC: 10/07/2021: 3.9 K/cumm MPV: 10/07/2021: 10.6 fL Platelets: 10/07/2021: 134 K/cumm (L) RDW CV: 10/07/2021: 13.3 % RDW Sd: 10/07/2021: 45.8 fL BMP Glucose: 10/07/2021: 77 mg/dL Calcium: 10/07/2021: 8.1 mg/dL (L) Sodium: 10/07/2021: 137 mmol/L Potassium: 10/07/2021: 2.9 mmol/L (L) CO2: 10/07/2021: 26 mmol/L Chloride: 10/07/2021: 103 mmol/L BUN: 10/07/2021: 8 mg/dL Creatinine: 10/07/2021: 0.67 mg/dL (L) DOS Physical Exam Medical history, medications, and allergies reviewed. Attestation: This PAT evaluation 10/08/2021. Airway Exam: Mallampati: II Cervical ROM: FROM TM distance: >4 Cardiovascular Exam: Rate: regular Rhythm: regular Dental Exam: Otherwise appears intact Anesthesia Plan ASA 3 My patient is approved for the Anesthesia Controlled Medication protocol when under care of a BREAD STACKER Planned anesthesia: General Team communication plan: oral ET tube Induction: Induction: intravenous. Postoperative Plan: Postoperative administration opioids intended. No postoperative mechanical ventilation intended. Patient's planned disposition post procedure is Floor. Informed Consent: Discussed plan with BREAD STACKER. Anesthesia plan and risks discussed with patient. Consent and Attending signature: I and/or my [...] Procedure Name Priority Date/Time Associated Diagnosis Comments MA AN PROCEDURE PLACEHOLDER Routine 10/08/2021 10:58 AM CDT MA AN PROCEDURE PLACEHOLDER Routine 10/08/2021 10:46 AM CDT MA AN ELECTIVE ENDOTRACHEAL AIRWAY Routine 10/08/2021 10:46 AM CDT documented in this encounter Results * MA AN PROCEDURE PLACEHOLDER (10/08/2021 10:58 AM CDT) Miley Benjamin CRNA - 10/08/2021 10:58 AM CDT Miley Mcmahon CRNA ? 10/08/2021 10:58 AM Peripheral IV Catheter Patient location: OR Staff: Placed by: Anesthesiologist: Dianne Kemp MD Preprocedure prep: Prep solution: chlorhexadine PPE: gloves and provider hat/mask PIV line: Laterality: left Site: wrist Catheter size: 18 g Technique: anatomical landmarks and direct visualization Procedure details: good blood return and occlusive dressing applied Number of attempts: 1 Assessment: Events: patient tolerated procedure well with no complications us Dianne Kemp MD ANESTHESIA ORDERABLES Final R esult * MA AN ELECTIVE ENDOTRACHEAL AIRWAY, MA AN PROCEDURE PLACEHOLDER (10/08/2021 10:46 AM CDT) Miley Benjamin CRNA - 10/08/2021 10:46 AM CDT Miley Mcmahon CRNA ? 10/08/2021 10:47 AM Airway Patient location: OR Urgency: elective Indications for airway management: anesthesia Difficult airway: no Staff: Placed by: BREAD STACKER: Miley Mcmahon CRNA Airway prep: Preoxygenated: yes Patient position: sniffing Mask difficulty assessment: 1 - vent by mask Sedation level during airway: GA Final airway details: Final airway type: endotracheal airway Tube type: ETT ETT size: 7.0 mm Cuffed: yes Technique used for successful ETT placement: direct laryngoscopy Insertion site: oral Cuff inflated with: air Placement verified by: auscultation and CO2 detection us Dianne Kemp MD ANESTHESIA ORDERABLES Final R esult documented in this encounter Visit Diagnoses Not on filedocumented in this encounter Administered Medications Inactive Administered Medications - up to 3 most recent administrations Medication Order MAR Action Action Date Dose Rate Site ceFAZolin (ANCEF) injection intravenous, Administer over 3 Minutes, As needed, Starting on 10/08/21 at 1025, Anesthesia Intra-op Given 10/08/2021 10:25 AM CDT 2,000 mg dexAMETHasone (DECADRON) 4 mg/mL injection intravenous, Administer over 2 Minutes, As needed, Starting on 10/08/21 at 1028, Anesthesia Intra-op Given 10/08/2021 10:28 AM CDT 8 mg dexmedeTOMIDine (PRECEDEX) injection intravenous, As needed, Starting on 10/08/21 at 1113, Anesthesia Intra-op Given 10/08/2021 11:13 AM CDT 10 mcg ePHEDrine injection intravenous, Administer over 5 Minutes, As needed, Starting on 10/08/21 at 1037, Anesthesia Intra-op Given 10/08/2021 11:00 AM CDT 10 mg Given 10/08/2021 10:37 AM CDT 10 mg fentaNYL (SUBLIMAZE) preservative free injection intravenous, As needed, Starting on 10/08/21 at 1012, Anesthesia Intra-op Given 10/08/2021 10:12 AM CDT 50 mcg Lactated Ringer's (LR) infusion intravenous, Continuous PRN, Starting on 10/08/21 at 1003, Anesthesia Intra-op New Bag 10/08/2021 10:03 AM CDT lidocaine (cardiac) (XYLOCAINE) preservative free injection intravenous, As needed, Starting on 10/08/21 at 1013, Anesthesia Intra-op, Indications: Ventricular ArrhythmiasIndications:Ventricular Arrhythmias Given 10/08/2021 10:13 AM CDT 5 mL ondansetron (ZOFRAN) injection intravenous, Administer over 2 Minutes, As needed, Starting on 10/08/21 at 1057, Anesthesia Intra-op Given 10/08/2021 10:57 AM CDT 4 mg phenylephrine (CON-SYNEPHRINE) 1 mg/10 mL (100 mcg/mL) in sodium chloride 0.9% (premix) intravenous, As needed, Starting on 10/08/21 at 1027, Anesthesia Intra-op Given 10/08/2021 10:57 AM CDT 100 mcg Given 10/08/2021 10:31 AM CDT 300 mcg Given 10/08/2021 10:27 AM CDT 200 mcg phenylephrine (CON-SYNEPHRINE) 10,000 mcg in sodium chloride 0.9% 250 mL (40 mcg/mL) infusion intravenous, Continuous PRN, Starting on 10/08/21 at 1028, Anesthesia Intra-op Rate/Dose Change 10/08/2021 11:06 AM CDT 0.2 mcg/kg/min 24.18 mL/hr Rate/Dose Change 10/08/2021 10:42 AM CDT 0.3 mcg/kg/min 36 .27 mL/hr Rate/Dose Change 10/08/2021 10:31 AM CDT 0.5 mcg/kg/min 60 .45 mL/hr propofoL (DIPRIVAN) 10 mg/mL IV intravenous, As needed, Starting on 10/08/21 at 1013, Anesthesia Intra-op Given 10/08/2021 10:13 AM CDT 140 mg rocuronium (ZEMURON) injection intravenous, As needed, Starting on 10/08/21 at 1039, Anesthesia Intra-op Given 10/08/2021 10:39 AM CDT 30 mg succinylcholine (ANECTINE) injection intravenous, As needed, Starting on 10/08/21 at 1013, Anesthesia Intra-op Given 10/08/2021 10:13 AM CDT 100 mg sugammadex (BRIDION) 100 mg/mL intravenous solution intravenous, As needed, Starting on 10/08/21 at 1103, Anesthesia Intra-op Given 10/08/2021 11:03 AM CDT 200 mg documented in this encounter Additional Health Concerns Infection Onset Date Last Indicated Resolved Time MDR gram neg/ESBL Comment:06/16/2021 IP Review - Pt with scrotal abscess, but is not actively draining (last documented draining on 06/14). Pt remains intubated so requires trach aspirate for isolation discontinuation. Provider notified. Amanda Walker RN 12/19/2019 12/19/2019 COVID19 Comment:Patient meets COVID recovered criteria. See note in comment field of COVID recovered flag. 10/04/2021 10/04/2021 10/16/2021 12:05 PM CDT documented as of this encounter Care Teams Fine Chemicals Operator Relationship Specialty Start Date End Date Jean-Claude Crawford MD [address] [address] PCP - General Family Medicine 04/12/20 06/12/22 Jean-Claude Crawford MD [address] [address] Family Medicine 04/12/20 Jessie Delvalle MD [address] [place] [id number] Orthopedic Surgery 07/07/21 Sandip Barone MD [address] [address] Consulting Physician Neurosurgery 07/07/21 documented as of this encounter
--- OUTSIDE RECORDS SUMMARY | 2024-04-08 10:34 | XMS_ITS | Encounter Summary ---
Author Organization [facility] Healthcare Address [address] [place] [address] Care Team Providers Care Survey Engineer Name Role Phone Jean-Claude Salazar MD Primary Care Provider Jean-Claude Salazar MD Unavailable [phone] Jessie Delvalle MD Unavailable + Sandip Barone MD Unavailable [phone] Reason for Visit * Reason Comments Altered [...] Expiration Date Visits Re quested Visits Authorized [id number] 1 1 Encounter Details Date Type Department Care Team (Late st Contact Info) Description 10/08/2021 7:30 AM CDT - 10/08/2021 10:10 AM CDT Surgery [facility] Operating Room [address] [place] [id number] Miguel Flores MD [address] [facility] [address] [place] [address] INTRAMEDULLARY NAILING FEMUR Surgery Details Date/Time Status Location OR Service Patient Class Case Class Case Type Trauma Case? 10/08/2021 7:30 AM Posted [facility] OPERATING ROOM OR Orthopaedics Inpatient Emergent Panel 1 Procedure LRB Anes Op Region Wound Class Comments INTRAMEDULLARY NAILING FEMUR Right General Thigh C lass I - Clean Surgeon Surgeon Role Service Panel Miguel Flores MD Primary Orthopaedics 1 documented in this encounter Social History Tobacco [...] attend chur ch or spiritism services? Never 10/06/2021 Do you belong to any clubs o r organizations such as mu-ism groups, unions, fraternal or athletic groups, or [...] slept in a detention (including now)? 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 Gender Identity Not on file Sexual Orientation Not on file documented as of this encounter Last Filed Vital Signs Vital Sign Reading Time Taken Comments Blood Pressure 142/92 10/08/2021 1:52 AM CDT Pulse 81 10/08/2021 1:52 AM CDT Temperature 36.6 ??C (97.9 ??F) 10/08/2021 1:52 AM CD T Respiratory Rate 18 10/08/2021 1:52 AM CDT Oxygen Saturation 98% 10/08/2021 1:52 AM CDT Inhaled Oxygen Concentration - - Weight 80.6 kg (177 lb 11.1 oz) 022 11:00 AM CDT Height 180.3 cm (5' 11 ) 10/05/2021 11: 00 AM CDT Body Mass Index 24.78 10/05/2021 11:00 AM CDT documented in this encounter Discharge Summaries * Saqib Currie DO - 10/12/2021 7:34 AM CDT Inpatient Discharge Summary BRIEF OVERVIEW Patient Name - Jania Redman Patient Age - 71 yrs Patient - [id number] [facility] - [id number] Document Creation Date: 10/12/2021 Admitting Provider, MD: Saqib Currie DO Discharge Provider, MD: Saqib Currie DO Primary Care Physician at Discharge: Jean-Claude Salazar MD [phone] Treatment Team: Consulting Physician: Miguel Flores MD Admission Date: 10/04/2021 Discharge Date/time: 10/12/2021 Admission Location: [facility] LOS - LOS: 8 days DETAILS OF HOSPITAL STAY Hospital Problems/Diagnoses Principal Problem: Sepsis due to COVID-19 ([facility]) ([facility]) Active Problems: Chronic systolic heart failure ([facility]) ([facility]) TBI (traumatic brain injury) ([facility]) ([facility]) Orthostatic hypotension COPD (chronic obstructive pulmonary disease) ([facility]) ([facility]) Benign prostatic hyperplasia with lower urinary tract symptoms Reason for Hospitalization: Sepsis 05/10 COVID 19 Hospital Course: 71 y.o.??year old [...] Rate: 69 bpm RR Interval: 862 msec KS Interval: 0 msec QRS Duration: 83 msec QT Interval: 448 msec QTC Interval: 467 msec P-R-T [place]: 0 - 68 - 71 degrees ATRIAL FIBRILLATION PROLONGED QT INTERVAL ABNORMAL ECG Electronically Signed By: Andreas Wheeler MD [facility] XR Chest Pa Lateral 2 [...] M.D. Recent Labs: Recent Labs Lab Units 10/11/21 0610/10/21 0649 10/09/21 0615 WBC K/cumm 5.1 7.2 4.8 HEMOGLOBIN g/dL 9.4* 10.1* 9.8* HEMATOCRIT % 28.7* 30.9* 29.7* PLATELETS K/cumm 102* 105* 99* Recent Labs Lab Units 10/11/21 0601 10/10/21 0649 10/09/21 0615 WBC K/cumm 5.1 7.2 4.8 HEMOGLOBIN g/dL 9.4* 10.1* 9.8* HEMATOCRIT % 28.7* 30.9* 29.7* PLATELETS K/cumm 102* 105* 99* NEUTROS PCT % 69.1 84.2 76.3 LYMPHS PCT % 20.4 8.9 17.6 MONOS PCT % 7.9 5.9 5.5 EOS PCT % 2.2 0.6 0.4 Recent Labs Lab Units 10/12/21 0610/11/21 0610/10/21 0649 10/09/21 0625 10/09/21 0615 SODIUM mmol/L -- 137 136 -- 138 POTASSIUM PLASMA mmol/L -- 3.6 3.8 -- 3.8 CHLORIDE mmol/L -- 106 103 -- 105 CO2 mmol/L -- 25 23 -- 25 BUN SERUM mg/dL -- 15 17 -- 13 CREATININE mg/dL -- 0.67* 0.75* -- 0.75* [id number] mL/min/1.73 m2 -- 100 97 -- 97 GLUCOSE mg/dL -- 97 97 -- 115 POC GLUCOSE MONITOR mg/dL 89 -- -- < > -- CALCIUM mg/dL -- 8.1* 8.1* -- 8.2* < > = values in this interval not displayed. Recent Labs Lab Units 10/12/21 0603 10/11/21 0610/10/21 0649 10/09/2162410/09/2115 SODIUM mmol/L -- 137 136 -- 138 [...] Adult Diet Regular Diet effective now Question: ([facility]) Diet type Answer: Regular 10/10/21 [...] Your Medications These medications were sent to [facility] ([facility] - [place], [place] - [address] [facility] [facility] [address] ?? losartan 50 mg tablet Outpatient Follow-Up: Future Appointments Date Time Provider Department Center 01/31/2022 11:45 AM Christopher Novak MD BJbrandon [facility] Specialty Contact Information for Follow-ups Jean-Claude Salazar MD Specialty: Family Medicine Relationship: PCP - General [address] [address] Next Steps: Follow up Instructions: Call provider for an appointment to follow up within 1 week Questions: Instructions for follow-up (appointment date and time): Call provider for an appointment to follow up within 1 week To provider: JEAN-CLAUDE SALAZAR Please schedule an appointment with the following provider(s): Jean-Claude Salazar MD [address] [place] [address] [facility] [address] Call provider for an appointment to follow [...] Patient Emergency Contact: Primary Emergency Contact: RAINE REDMAN, Jorge A Immunization Status at Discharge Immunization History Administered [...] Disposition Code Departure Means Destination Discharge to [facility] documented in this encounter Progress Notes * [...] participate in tasks. pt appears to be NATIVE and visibly impaired Overall Cognitive Status Impaired [...] (from Physical Therapy) Active Problems Problem: PT [facility] Start Date: 10/06/21 Goal Start Date Expected End Date End Date PT LTG - [facility] 1 10/06/21 11/02/21 -- Goal Details: Pt will perform all OOB transfers with modified independence and least restrictive assistive device prior to discharge. Goal Start Date Expected End Date End Date PT [facility] - [facility] 2 10/06/21 11/02/21 -- Goal Details: Pt will ambulate 150ft with modified independence and least restrictive assistive device prior to discharge. Goal Start Date Expected End Date End Date PT LTG - [facility] 3 10/06/21 11/02/21 -- Goal Details: Pt will increase Tinetti Balance Assessment score to 23/28 to demonstrate decreased fall risk prior to discharge. Cosigned by Kailyn Bryan, DPT at 11/01/2021 4:04 PM CDT * Maikol Acosta MD - 10/31/2021 5:32 PM CDT Follow up note: ?? Pt seen and examined. Doing well. Feeding himself today! Appetite improved. Discharged on 10/12/2021. See Discharge summary by Dr. Currie. Awaiting insurance authorization and post- acute arrangements by KAL and AMARJIT * Maikol Acosta MD - 10/30/2021 3:44 PM CDT Follow up note: Pt seen and examined. Doing well. Too tired for therapy today. Appetite improved. Discharged on 10/12/2021. See Discharge summary by Dr. Currie. Awaiting insurance authorization and post- acute arrangements by KAL and AMARJIT * Vy Zhang DPT - 10/30/2021 2:05 [...] (from Physical Therapy) Active Problems Problem: PT [facility] Start Date: 10/06/21 Goal Start Date Expected End Date End Date PT [facility] 1 10/06/21 11/02/21 -- Goal Details: Pt will perform all OOB transfers with modified independence and least restrictive assistive device prior to discharge. Goal Start Date Expected End Date End Date PT [facility] 2 10/06/21 11/02/21 -- Goal Details: Pt will ambulate 150ft with modified independence and least restrictive assistive device prior to discharge. Goal Start Date Expected End Date End Date PT [facility] 3 10/06/21 11/02/21 -- Goal Details: Pt [...] [facility]man PCP Jean-Claude Salazar MD CC: f/u [facility] course: Discharge orders and summary completed [...] Principal Problem: Sepsis due to COVID-19 (CMS/HCC) ([facility]) Active Problems: Chronic systolic heart failure (CMS/HCC) ([facility]) TBI (traumatic brain injury) (CMS/HCC) ([facility]) Orthostatic hypotension COPD (chronic obstructive pulmonary disease) (CMS/HCC) ([facility]) Benign prostatic hyperplasia with lower urinary tract symptoms Septic shock (CMS/HCC) ([facility]) Essential hypertension -- losartan increased to 50 [...] Hypothermia, initial encounter [T68.XXXA] Septic shock (CMS/HCC) ([facility]) [A41.9, R65.21] Pneumonia of right lower lobe due to infectious organism [J18.9] Hypotension, unspecified hypotension type [I95.9] Sepsis due to COVID-19 (CMS/HCC) ([facility]) [U07.1, A41.89]. Admitted on 10/04/2021. Patient's intake is adequate. Objective Dietary Orders (From admission, onward) Start Ordered 10/11/21 0700 Oral Nutrition Supplements Select Supplement: Ensure Enlive - Any Flavor With Breakfast and Dinner Question: Select Supplement: Answer: Ensure Enlive - Any Flavor 10/10/21 1742 10/10/21 1151 Adult Diet Regular Diet effective now Question: ([facility]) Diet type Answer: Regular 10/10/21 [...] Type: Return to previous diet Mark Anthony Stacy Manager Mental Health Cosigned by Edie Sidhu RD at 10/26/2021 [...] (from Physical Therapy) [facility]: 10[facility]21 Goal Start Date Expected End Date End Date PT LT - [facility] 1 10/06/21 11/02/21 -- Goal Details: Pt will perform all OOB transfers with modified independence and least restrictive assistive device prior to discharge. Goal Start Date Expected End Date End Date PT LT - [facility] 2 10/06/21 11/02/21 -- Goal Details: Pt will ambulate 150ft with modified independence and least restrictive assistive device prior to discharge. Goal Start Date Expected End Date End Date PT LT - [facility] 3 10/06/21 11/02/21 -- Goal Details: Pt [...] A/P Principal Problem: Sepsis due to COVID-19 ([facility]) ([facility]) Active Problems: Chronic systolic heart failure ([facility]) ([facility] TBI (traumatic brain injury) ([facility]) ([facility]) Orthostatic hypotension COPD (chronic obstructive pulmonary disease) ([facility]) ([facility]) Benign prostatic hyperplasia with lower urinary tract symptoms Septic shock ([facility]) ([facility]) -- continue to await dc -- prn [...] tract symptoms Septic shock (CMS/HCC) (HCC) -- add seroquel 25 mg po q [...] Principal Problem: Sepsis due to COVID-19 (CMS/HCC) ([facility]) Active Problems: Chronic systolic heart failure (CMS/HCC) ([facility]) TBI (traumatic brain injury) (CMS/HCC) ([facility]) Orthostatic hypotension COPD (chronic obstructive pulmonary disease) (CMS/HCC) ([facility]) Benign prostatic hyperplasia with lower urinary tract symptoms Septic shock (CMS/HCC) ([facility]) -- awaiting dispo plan -- will plan [...] Date: 10/23/2021 Time: 1:26 PM * Je Williamson OT - 10/23/2021 9:05 AM CDT Occupational Therapy 10/23/21 0905 General Session Type Treatment OT Received On 10/23/21 Safe Environment Arm Band Checked;Bed Alarm placed and activated;Call Light within Reach;Notified college recruiter/Caregiver Present No Precautions Precautions Bed/Chair Alarm;Fall risk [...] informed pt. he will need to roll [id number] so pad could be changed: L roll [...] Principal Problem: Sepsis due to COVID-19 (CMS/HCC) ([facility]) Active Problems: Chronic systolic heart failure (CMS/HCC) ([facility]) TBI (traumatic brain injury) (CMS/HCC) (HCC) Orthostatic hypotension COPD (chronic obstructive pulmonary disease) (CMS/HCC) (HCC) Benign prostatic hyperplasia with lower urinary tract symptoms Septic shock (CMS/HCC) (HCC) -- continue to await placement Max Cunningham [...] Principal Problem: Sepsis due to COVID-19 (CMS/HCC) ([facility]) Active Problems: Chronic systolic heart failure (CMS/HCC) ([facility]) TBI (traumatic brain injury) (CMS/HCC) ([facility]) Orthostatic hypotension COPD (chronic obstructive pulmonary disease) (CMS/HCC) ([facility]) Benign prostatic hyperplasia with lower urinary tract symptoms Septic shock (CMS/HCC) ([facility]) -- dc when okayed with social work [...] A/P Principal Problem: Sepsis due to COVID-19 ([facility]) ([facility]) Active Problems: Chronic systolic heart failure (CMS/HCC) ([facility]) TBI (traumatic brain injury) ([facility]/HCC) ([facility]) Orthostatic hypotension COPD (chronic obstructive pulmonary disease) ([facility]) ([facility]) Benign prostatic hyperplasia with lower urinary tract symptoms Septic shock ([facility]) ([facility]) -- await placement Max Cunningham MD 10/21/2021 * Sid Anguiano DPT - 10/20/2021 11:40 AM CDT Physical [...] Clinical Progression Not changed Cognition Cognition Comments NATIVE, limited vision Overall Cognitive Status Impaired Arousal/Alertness [...] End Date End Date PT LTG - [facility] 1 10/06/21 10/20/21 -- Goal Details: Pt will perform all OOB transfers with modified independence and least restrictive assistive device prior to discharge. Goal Start Date Expected End Date End Date PT LTG - Misc 2 10/06/21 10/20/21 -- Goal Details: Pt [...] Assessment: Principal Problem: Sepsis due to COVID-19 ([facility]) ([facility]) Active Problems: Chronic systolic heart failure ([facility]) ([facility] TBI (traumatic brain injury) ([facility]) ([facility]) Orthostatic hypotension COPD (chronic obstructive pulmonary disease) ([facility]) ([facility]) Benign prostatic hyperplasia with lower urinary tract symptoms Septic shock ([facility]) ([facility]) Plan: Treatment Team: Consulting Physician: Miguel Flores MD Fall??10/07 Acute right intertrochanteric femur fracture -CT brain negative, mental status appears to be improving no acute changes -s/p??right??Yamileth Trigen Intertan trochanteric nailing of intertrochanteric femur fracture??10/08 -[facility] DVT prophylaxis Lovenox -PT/OT [facility] once arranged ?? Severe sepsis due [...] [R41.0] Hypothermia, initial encounter [T68.XXXA] Septic shock ([facility]) ([facility]) [A41.9, R65.21] Pneumonia of right lower lobe due to infectious organism [J18.9] Hypotension, unspecified hypotension type [I95.9] Sepsis due to COVID-19 ([facility]) ([facility]) [U07.1, A41.89]. Admitted on 10/04/2021. Patient's intake improving. Objective Dietary Orders (From admission, onward) Start Ordered 10/11/21 0700 Oral Nutrition Supplements Select Supplement: Ensure Enlive - Any Flavor With Breakfast and Dinner Question: Select Supplement: Answer: Ensure Enlive - Any Flavor 10/10/21 1742 10/10/21 1151 Adult Diet Regular Diet effective now Question: ([facility]) Diet type Answer: Regular 10/10/21 [...] Return to previous diet Mark Anthony Stacy, Manager Mental Health Cosigned by Glenis Khan RD at 10/19/2021 [...] have a right femur fracture.??He underwent??right??Das and El Trigen Intertan trochanteric nailing of [...] Principal Problem: Sepsis due to COVID-19 (CMS/HCC) ([facility]) Active Problems: Chronic systolic heart failure (CMS/HCC) ([facility]) TBI (traumatic brain injury) ([facility]) ([facility] Orthostatic hypotension COPD (chronic obstructive pulmonary disease) (CMS/HCC) ([facility] Benign prostatic hyperplasia with lower urinary tract symptoms Septic shock ([facility]) ([facility]) Plan: Treatment Team: Consulting Physician: Miguel Flores MD Fall??7/ Acute right intertrochanteric femur fracture -CT brain negative, mental status appears to be improving -s/p??right??Yamileth Vidal Intertan trochanteric nailing of intertrochanteric femur fracture??10/08 -WBAT DVT prophylaxis Lovenox -PT[facility]OT [facility] ?? Severe sepsis due to COVID [...] Lab/Radiology/Diagnostic Review: Recent Labs Lab Units 10/16/21 0610/15/21 1030 10/14/21 0700 SODIUM mmol/L 140 139 140 POTASSIUM PLASMA mmol/L 3.5 3.8 3.4 CHLORIDE mmol/L 106 105 108 CO2 mmol/L 27 26 25 ANIONGAP mmol/L 7 8 7 GLUCOSE mg/dL 88 142 85 BUN SERUM mg/dL 15 11 11 CREATININE mg/dL 0.69* 0.59* 0.62* CALCIUM mg/dL 8.2* 8.4* 8.2* Recent Labs Lab Units 10/16/21 0610/15/21 1030 10/14/21 0700 WBC K/cumm 6.7 5.7 4.4 HEMOGLOBIN g/dL 9.2* 10.4* 9.9* HEMATOCRIT % 28.0* 30.5* 29.8* PLATELETS K/cumm 173 167 159 Assessment: Principal Problem: Sepsis due to COVID-19 ([facility]) ([facility]) Active Problems: Chronic systolic heart failure ([facility]) ([facility]) TBI (traumatic brain injury) ([facility]) ([facility]) Orthostatic hypotension COPD (chronic obstructive pulmonary disease) ([facility]) ([facility]) Benign prostatic hyperplasia with lower urinary tract symptoms Septic shock ([facility]) ([facility]) Plan: Treatment Team: Consulting Physician: Miguel Flores MD Fall??10/07 Acute right intertrochanteric femur fracture -CT brain negative, mental status appears to be improving -s/p??right??Das and Nephew Trigen Intertan trochanteric nailing of intertrochanteric femur fracture??10/08 -[facility] DVT prophylaxis Lovenox -PT/OT [facility] ?? Severe sepsis due to COVID [...] 10/16/2021 2:56 PM CDT Physical Therapy 10/16/21 6166 PT Last Visit Session Type Treatment PT [...] Not changed Cognition Cognition Comments Pt is NATIVE Overall Cognitive Status Impaired Arousal/Alertness Alert Attention [...] (from Physical Therapy) Active Problems Problem: PT [facility] Start Date: 10/06/21 Goal Start Date Expected End Date End Date PT LTG - [facility] 1 10/06/21 10/20/21 -- Goal Details: Pt will perform all OOB transfers with modified independence and least restrictive assistive device prior to discharge. Goal Start Date Expected End Date End Date PT LTG - [facility] 2 10/06/21 10/20/21 -- Goal Details: Pt will ambulate 150ft with modified independence and least restrictive assistive device prior to discharge. Goal Start Date Expected End Date End Date PT LT - [facility] 3 10/06/21 10/20/21 -- Goal Details: Pt will increase Tinetti Balance Assessment score to 23/28 to demonstrate decreased fall risk prior to discharge. * Saqib Currie, - 10/16/2021 12:14 PM CDT General Medicine [...] Principal Problem: Sepsis due to COVID-19 (CMS/HCC) ([facility]) Active Problems: Chronic systolic heart failure (CMS/HCC) ([facility]) TBI (traumatic brain injury) (CMS/HCC) ([facility]) Orthostatic hypotension COPD (chronic obstructive pulmonary disease) (CMS/HCC) ([facility]) Benign prostatic hyperplasia with lower urinary tract symptoms Septic shock (CMS/[facility]) ([facility]) Plan: Treatment Team: Consulting Physician: Miguel Flores [...] [R41.0] Hypothermia, initial encounter [T68.XXXA] Septic shock ([facility]) ([facility]) [A41.9, R65.21] Pneumonia of right lower lobe due to infectious organism [J18.9] Hypotension, unspecified hypotension type [I95.9] Sepsis due to COVID-19 ([facility]) ([facility]) [U07.1, A41.89]. Admitted on 10/04/2021. Patient's intake is inconsistent. Objective Dietary Orders (From admission, onward) Start Ordered 10/11/21 0700 Oral Nutrition Supplements Select Supplement: Ensure Enlive - Any Flavor With Breakfast and Dinner Question: Select Supplement: Answer: Ensure Enlive - Any Flavor 10/10/21 1742 10/10/21 1151 Adult Diet Regular Diet effective now Question: ([facility]) Diet type Answer: Regular 10/10/21 [...] Not changed Cognition Cognition Comments Pt is NATIVE Overall Cognitive Status Impaired Arousal/Alertness Delayed responses [...] End Date End Date PT LTG - [facility] 1 10/06/21 10/20/21 -- Goal Details: Pt will perform all OOB transfers with modified independence and least restrictive assistive device prior to discharge. Goal Start Date Expected End Date End Date PT LTG - Misc 2 10/06/21 10/20/21 -- Goal Details: Pt will ambulate 150ft with modified independence and least restrictive assistive device prior to discharge. Goal Start Date Expected End Date End Date PT LTG - Misc 3 10/06/21 10/20/21 -- Goal Details: Pt will increase Tinetti Balance Assessment score to 23/28 to demonstrate decreased fall risk prior to discharge. * Saqib Currie DO - 10/11/2021 12:24 PM CDT General [...] Lab/Radiology/Diagnostic Review: Recent Labs Lab Units 10/11/21 0601 10/10/21 0649 10/10/21 0640 10/09/21 0625 10/09/21 0615 [...] not displayed. Recent Labs Lab Units 10/11/21 0601 10/10/21 0649 10/09/21 0615 WBC K/cumm 5.1 7.2 4.8 HEMOGLOBIN g/dL 9.4* 10.1* 9.8* HEMATOCRIT % 28.7* 30.9* 29.7* PLATELETS K/cumm 102* 105* 99* Assessment: Principal Problem: Sepsis due to COVID-19 ([facility]) ([facility]) Active Problems: Chronic systolic heart failure ([facility]) ([facility]) TBI (traumatic brain injury) ([facility]) ([facility]) Orthostatic hypotension COPD (chronic obstructive pulmonary disease) ([facility]) ([facility]) Benign prostatic hyperplasia with lower urinary tract symptoms Plan: Treatment Team: Consulting Physician: Miguel Flores MD Fall??7/2 Acute right intertrochanteric femur fracture -CT brain negative -s/p??right??Thiago and El Trigen Intertan trochanteric nailing of intertrochanteric femur fracture??/ -WBAT -PT/OT ?? Severe sepsis due to [...] bathing with SBA 10/05/21 10/19/21 -- * Erin Glenis JovannaElizabeth RD - 10/10/2021 5:37 PM CDT Initial Nutrition Assessment Reason for Assessment: Initial Nutrition Assessment Encounter Date: 10/10/21 5:37 PM Nutrition Evaluation: Patient is a 71 y.o. male. Admit Dx: Disorientation [R41.0] Hypothermia, initial encounter [T68.XXXA] Septic shock (CMS/HCC) ([facility]) [A41.9, R65.21] Pneumonia of right lower lobe due to infectious organism [J18.9] Hypotension, unspecified hypotension type [I95.9] Sepsis due to COVID-19 (CMS/HCC) ([facility]) [U07.1, A41.89]. Admitted on 10/04/2021, current LOS is 6 days. Patient's intake is inconsistent. Objective Past Medical History: Diagnosis Date ??? Acute cholecystitis ??? Alcohol use ??? Anxiety ??? Atrial fibrillation (CMS/HCC) ([facility]) ??? Blind legally blind ??? BPH (benign prostatic hyperplasia) ??? BPH (benign prostatic hyperplasia) ??? CHF (congestive heart failure) (CMS/HCC) ([facility]) ??? CHF (congestive heart failure) (CMS/HCC) ([facility]) ??? Cholecystitis ??? Chronic anemia ??? COPD (chronic obstructive pulmonary disease) (CMS/HCC) ([facility]) ??? GERD (gastroesophageal reflux disease) ??? Histoplasmosis [...] Adult Diet Regular Diet effective now Question: ([facility]) Diet type Answer: Regular 10/10/21 [...] hx TBI s/p SAH 06/2021, was at [facility] and followed by RDs during that time until d/c to facility. At [facility] pt had received TF until pureed diet and ONS started. Weight then 189lb. Pt with current bed scale 177lb but also noted weight 180lb per 08/04 SNF note and noted fair intake. Documented meals here varied. Discussed with RN, pt had previously been on pureed diet at [facility] and when admitted to facility. Unsure if had been continued on. Pt needs to be fed and RN notes no issues were noted on regular diet but will monitor need for BLOCK GREASER consult. Likely would benefit from supplement. Will add Ensure Enlive BID. Plan: Ensure Enlive BID. Follow for further assessment. Intervention and Monitoring: Goals: Oral intake to meet 75% estimated nutritional needs by next assessment Interventions: Medical food supplement Monitoring and Evaluation: Plan of care, Supplement tolerance, PO intake Glenis Khan RD,LD * Saqib Currie DO - 10/10/2021 1:40 PM CDT General Medicine [...] to have right femur fracture. ??He underwent right??Thiago and El Trigen Intertan trochanteric nailing [...] deficits Lab/Radiology/Diagnostic Review: Recent Labs Lab Units 10/10/21 0649 10/10/21 0640 10/09/21 0625 10/09/21 0615 10/08/21 [...] interval not displayed. Recent Labs Lab Units 10/10/21 0649 10/09/21 0615 10/08/21 0246 WBC K/cumm 7.2 4.8 4.7 HEMOGLOBIN g/dL 10.1* 9.8* 10.9* HEMATOCRIT % 30.9* 29.7* 32.7* PLATELETS K/cumm 105* 99* 120* Assessment: Principal Problem: Sepsis due to COVID-19 ([facility]) ([facility]) Active Problems: Chronic systolic heart failure ([facility]) ([facility]) TBI (traumatic brain injury) ([facility]) ([facility]) Orthostatic hypotension COPD (chronic obstructive pulmonary disease) ([facility]) ([facility]) Benign prostatic hyperplasia with lower urinary tract symptoms Plan: Treatment Team: Consulting Physician: Miguel Flores MD Fall 10/07 Acute right intertrochanteric femur fracture -CT brain negative -s/p right??Yamileth Azulen Intertan trochanteric nailing of intertrochanteric femur fracture [...] Principal Problem: Sepsis due to COVID-19 (CMS/HCC) ([facility]) Active Problems: Chronic systolic heart failure (CMS/HCC) ([facility]) TBI (traumatic brain injury) (CMS/HCC) ([facility]) Orthostatic hypotension COPD (chronic obstructive pulmonary disease) (CMS/HCC) ([facility]) Benign prostatic hyperplasia with lower urinary tract [...] Principal Problem: Sepsis due to COVID-19 (CMS/HCC) ([facility]) Active Problems: Chronic systolic heart failure (CMS/HCC) ([facility]) TBI (traumatic brain injury) ([facility]) ([facility]) Orthostatic hypotension COPD (chronic obstructive pulmonary disease) ([facility]) ([facility]) Benign prostatic hyperplasia with lower urinary tract [...] Principal Problem: Sepsis due to COVID-19 (CMS/HCC) ([facility]) Active Problems: Chronic systolic heart failure (CMS/HCC) ([facility]) TBI (traumatic brain injury) (CMS/HCC) ([facility]) Orthostatic hypotension COPD (chronic obstructive pulmonary disease) (CMS/HCC) ([facility]) Benign prostatic hyperplasia with lower urinary tract [...] High Dispo: Return to SNF Discussed with alyssa Gabriel, the Raine, Ortho Dr Flores and [...] uncontrolled descent. Cognition Cognition Comments Pt is NATIVE. Also has limited vision. Overall Cognitive Status Impaired Arousal/Alertness Alert;Delayed responses to stimuli Attention Span Difficulty attending to directions;Distractability Memory Decreased short term memory;Decreased retirement memory;Decreased recall of recent events;Decreased recall of [...] Principal Problem: Sepsis due to COVID-19 (CMS/HCC) ([facility]) Active Problems: Chronic systolic heart failure (CMS/HCC) ([facility]) TBI (traumatic brain injury) (CMS/HCC) ([facility]) Orthostatic hypotension COPD (chronic obstructive pulmonary disease) (CMS/HCC) ([facility]) Benign prostatic hyperplasia with lower urinary tract [...] historian. Per notes, pt. lives in the [facility]. Prior Function Fall within the last 6 [...] Impaired;Right Finger Nose Finger Impaired;Right Balance Balance (16/28 Tinetti indicating high fall risk) Bed Mobility [...] End Date End Date PT LT - [facility] 1 10/06/21 10/20/21 -- Goal Details: Pt will perform all OOB transfers with modified independence and least restrictive assistive device prior to discharge. Goal Start Date Expected End Date End Date PT LTG - [facility] 2 10/06/21 10/20/21 -- Goal Details: Pt will ambulate 150ft with modified independence and least restrictive assistive device prior to discharge. Goal Start Date Expected End Date End Date PT LTG - [facility] 3 10/06/21 10/20/21 -- Goal Details: Pt [...] Principal Problem: Sepsis due to COVID-19 (CMS/HCC) ([facility]) Active Problems: Chronic systolic heart failure (CMS/HCC) ([facility]) TBI (traumatic brain injury) (CMS/HCC) ([facility]) Orthostatic hypotension COPD (chronic obstructive pulmonary disease) (CMS/HCC) ([facility]) Benign prostatic hyperplasia with lower urinary tract [...] 2 midnights Medical complexity / risk:High * Je Williamson, OT - 10/05/2021 11:07 AM CDT Occupational [...] EMR references that pt. lives in the [facility]. Pt. has reportedly been declining since his [...] SBA 10/05/21 10/19/21 -- * Jemma Gottlieb, BUNNY - 10/05/2021 9:27 AM CDT 10/05/21 09 RT Protocol Assessment RT Assessment Scoring Needed [...] Final Lizzeth Cueva PharmD * Deann Delgadillo RPh - 10/04/2021 2:33 PM CDT Pharmacokinetic Consult [...] approximately 13% higher for people identified as -Uzbek. BUN Date Value Ref Range Status 10/04/2021 [...] based on renal function. Donna Delgadillo, PharmD, [facility] Clinical Pharmacist documented in this encounter H&P [...] pt has been declining ever since his SAHin june. Currently living in the [facility] [...] Normal appearance. He is ill-appearing. Comments: sayda samaner in place HENT: Head: Normocephalic and atraumatic. [...] Vicente Verma M.D. CT Head WO Contrast Final Result Interval resolution of small volume intraventricular hemorrhage. No new acute intracranial hemorrhage. No large acute territory infarct. Electronically signed by: Lotus Michael M.D. CXR independently reviewed: NAD Review of old records: reviewed ED encounter at [facility] on 09/19 , seen for dementia [...] his left hip back in June at [facility]. At baseline he is alert to person only and is a wheelchair ambulator. He has been residing at the [facility]. He injured his right hip when he slid out of his wheelchair yesterday afternoon and an x-ray was obtained which revealed a comminuted intertrochanteric femur fracture. Ortho was consulted for fracture repair. Past Medical History: Diagnosis Date ??? Acute cholecystitis ??? Alcohol use ??? Anxiety ??? Atrial fibrillation (CMS/HCC) ([facility]) ??? Blind legally blind ??? BPH (benign prostatic hyperplasia) ??? BPH (benign prostatic hyperplasia) ??? CHF (congestive heart failure) (CMS/HCC) ([facility]) ??? CHF (congestive heart failure) (CMS/HCC) ([facility]) ??? Cholecystitis ??? Chronic anemia ??? COPD (chronic obstructive pulmonary disease) (CMS/HCC) ([facility]) ??? GERD (gastroesophageal reflux disease) ??? Histoplasmosis [...] Principal Problem: Sepsis due to COVID-19 (CMS/HCC) ([facility]) Active Problems: Chronic systolic heart failure (CMS/HCC) [...] from the original note were not included. [facility] [place] [address], [address] [place], [place], [address] [address], [place] [address] Cardiology Electrophysiology Lakhwinder Chaudhry, MD Bill Gamez,, MD Donavan Davila, MD Logan Germain, MD Ray Marmolejo, MD Mikey Lozada, MD Kerwin Joyce, DO Christopher Novak, MD Adrianna Poole, SPORTS STATISTICIAN Clarence Wilkes, MD Charis Park, MD Pedro Luis Mccormack, MD Linwood Meza, MD Rehana Thompson, DO Andreas Wheeler, MD Taryn Curry, SPORTS STATISTICIAN Jannie Montano, GARIMA Palacios, SPORTS STATISTICIAN Cardiology Consultation Note Patient Name: Jania Redman [...] and subarachnoid hemorrhage Currently lives in the [facility] and was found unresponsive in his wheelchair [...] oz) SpO2 99% BMI 24.78 kg/m?? Vitals: 10/06/21204910/07/21 0421 10/07/21 0726 10/07/21 0815 BP: (!) [...] above. Electronically signed by: Clarence Prado M.D. Results for orders placed or performed during the hospital encounter of 06/11/21 ECG 12 lead Result Value Ref Range Ventricular Rate EKG/Min 78 BPM Atrial Rate 110 BPM QRS-Interval (MSEC) 76 ms QT-Interval (MSEC) 424 ms QTc 483 ms R Riverside 14 degrees T [place]ide -38 degrees Diagnosis Atrial fibrillation Nonspecific ST and T wave abnormality Prolonged QT Abnormal ECG When compared with ECG of 12-JUN-2021 12:13, Vent. rate has decreased BY 70 BPM Nonspecific T wave abnormality, worse in Anterolateral leads Confirmed by VENKAT KANG M.D ([id number]) on 06/14/2021 2:54:24 PM Results for orders placed during the hospital encounter of 08/30/20 Transthoracic Echo Complete W Doppler/CF Narrative [facility] [address] [place] [address] ECHOCARDIOGRAM Patient Name: JANIA REDMAN : 1950 Study Date: 08/30/2020 10:52:11 AM Gender: M Tech: MAC Ref.Provider: CHRISTOPHER NOVAK Height(Cm): 180 BSA: 2.09 [...] normal. Electronically Signed By: Christopher Novak MD, [facility] 2020-08-30 12:21:56 CDT CC: CC: Problem List [...] with normal RV function on echocardiogram at [place] June 2021 4. Hypotension, likely COVID sepsis 5. COVID-19 sepsis 6. Dementia 7. Recent falls, subarachnoid hemorrhage June 2021 Care plan discussed with the patient. Andreas Wheeler MD 10/07/2021 11:30 AM This note was dictated in part using [employer] voice recognition software. Despite careful review of [...] Date Noted ??? Sepsis due to COVID-19 (CMS/HCC) (HCC) 10/04/2021 ??? Falls, subsequent encounter 09/25/2021 ??? Borderline hyperglycemia 08/23/2021 ??? Dementia (HCC) 07/21/2021 ??? COPD (chronic obstructive pulmonary disease) (CMS/HCC) (HCC) 07/13/2021 ??? Benign prostatic hyperplasia with lower urinary tract symptoms 07/13/2021 ??? Acute on chronic anemia 07/05/2021 ??? Thrombocytopenia (CMS/HCC) (HCC) 07/05/2021 ??? TBI (traumatic brain injury) (CMS/HCC) (HCC) 06/29/2021 ??? SAH (subarachnoid hemorrhage) (CMS/HCC) (HCC) 06/29/2021 ??? Encephalopathy 06/29/2021 ??? Acute delirium 06/29/2021 ??? Scrotal abscess 06/29/2021 ??? Closed nondisplaced intertrochanteric fracture of left femur (CMS/HCC) (HCC) 06/29/2021 ??? Dysphagia 06/29/2021 ??? Orthostatic hypotension [...] Conv) Review of Systems Review of Systems Constitutional: [...] significance include white count 2.6, platelet count 122 , albumin 3.2. Sepsis lactate pending. Blood cultures x2 were obtained and a sepsis focused exam was performed. He has SIRS criteria with white count 2.6, and respiratory rate 25. He had at least 3 consecutive blood pressures that were less than 90 systolic, and a 30 milliliter/kilogram sepsis bolus was initiated. Broad-spectrum sepsis appropriate IV antibiotics have [...] hospitalist By: Alysha Ramirez MD Septic shock (CMS/HCC) ([facility]) Disorientation Hypothermia, initial encounter Hypotension, unspecified hypotension type Pneumonia of right lower lobe due to infectious organism Alysha Ramirez MD Resident 10/04/212111 Gian Jackson MD 10/05/21 1201 * Lakia Youngblood RN - 10/04/2021 1:03 PM CDT Patient presents with complaints of being unresponsive in his wheelchair from the [facility]. documented in this encounter Miscellaneous Notes * [...] CDT Disposition: patient is confused. ADELIA/Raine Redman ([phone]) is aware and verified d/c plan is [facility] Facility admissions/Floxy verified the following information: Facility: [facility] Room: 075 Call report to: [phone] Fax d/c orders to: [phone] Accepting physician: Dr. Pop ([phone]) Transportation: [facility]. ETA: 11/01/21, 1700. Trip number: [id number]. * Plan of Care - Jemma Shaw RN - 11/01/2021 12:49 PM CDT Received a call back from Lucretai at [employer]. Provided verbal report of therapy notes.SNF authorized for [facility]. Auth number [id number], DOS 11/01-11/14, with NRD 11/13. Lucretia dumont reached at , . Provided information to Jared at [facility] . * Plan of Care - Jemma Shaw RN - 11/01/2021 11:16 AM CDT Contacted Patient's insurance, , to inquiry about authorization status for SNF. Customer Service could not locate the request and transferred me to the UR and DC planning line, . Left a [...] as needed. * Plan of Care - Aby Joseph - 10/31/2021 5:30 PM [...] - 10/31/2021 4:35 PM CDT Per [facility]AL TL, spoke with [facility] and she stated insurance auth isstill pending. SW spoke with patient's DPOA/Raine Redman ([phone]) to discuss d/c plan. She stated she [...] - 10/30/2021 4:16 PM CDT Per [facility] admissions/Floxy, insurance auth is still pending. 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 Pt denies pain. Urinating appropriately, mostly incontinent. Has good appetite. Pt has been calm and cooperative all day. Will continue to monitor pt, * Plan of Care - Wellington Delgado MSW - 10/28/2021 1:41 PM CDT Weekend note: SW left message for [facility] admissions/Floxy to determine status of insurance auth. Addendum: per admissions/Floxy, insurance auth is still pending. * Plan of Care - Torri Kim, GAURAV - 10/28/2021 3:30 AM CDT Problem: Health [...] bed alarm in place * Plan of Aby Echevarria RN - 10/27/2021 3:39 PM CDT Goals: [...] Delgado MSW - 10/27/2021 11:44 AM CDT AMARJIT left message for [facility] admissions/Floyx (at 0922 and 1142). She stated sheis on the phone currently with patient's insurance company, verified she will return call ADITYA. Addendum 1231: Neftaly Mckeon, was hung up on by insurance company, planning to call again at a later time, will update when auth is obtained. Addendum 4233: at this time, insurance auth is still [...] will update as needed * Plan of Marilyn - Miley Acosta RN - 10/26/2021 3:23 [...] Delgado MSW - 10/26/2021 9:23 AM CDT SW left message for [facility] admissions/Floxy ([phone]) to determine if insurance has approved SNF. Addendum: AMARJIT received return call from facility admissions/Floxy. She is going to speak with the new liaison to verify insurance auth status and will update AMARJIT. * Plan of Care - Jenn Spain [...] Outcome: Progressing * Plan of Marilyn - Aby Hsieh RN - 10/25/2021 2:23 [...] Outcome: Progressing * Plan of Care - Wellingotn Delgado MSW - 10/25/2021 9:54 AM CDT left message for [facility] admissions/Floxy ([phone]) to determine if insurance has approved SNF. [...] Johnson MSW - 10/24/2021 9:52 AM CDT [facility] unable to accept pt. Do not have a contract. Spoke with pt's sig. Other who is agreeable to [facility]. Notified FLoxy to start auth. Sig. Other concerned aboutsepsis. Requesting DrElizabeth To contact her. Left a message with [...] - 10/23/2021 12:18 PM CDT Per [facility] admissions/Mauro, insurance auth is still pending at this [...] chair. Denies pain or other problems. Very NATIVE and hard to get patient to undestand. Remain with virtual sitter. VSS * Plan of Care - Wellington Delgado MSW - 10/20/2021 2:34 PM CDT sent updated therapy notes to [place]. Facility admissions/Mauro is aware and will start [...] = Cosigned By Initials Name Effective Dates Zoey Vance, LESLIE 08/17/21 - OT Treatment Row Name 10/20/21 [...] bed. Sits in chair. -TV Cognition Comments NATIVE, limited vision-oftentimes needs question repeated. -TV Overall [...] PT Treatment Row Name 10/20/21 1140 10/16/21 7356 PT Last Visit Session Type Treatment -SS [...] -SS Not changed -LG Cognition Cognition Comments NATIVE, limited vision -SS Pt is NATIVE -LG Overall Cognitive Status Impaired -SS Impaired [...] Mobility to 2 -- Side lying-right;Side lying-left - Level of Assistance 2 -- Standby Assist [...] -LG Barriers to Discharge Current Mobility Status;Cognition - -- Plan Plan Continue with current plan;If this is the last note, consider this the discharge summary -SS Continue with current plan;If this is the last note, consider this the discharge summary -LG Recommendation/Plan PT Recommendation/Plan Intermediate Facility -SS Intermediate Facility -LG Recommend SNF due to Skilled therapy needed to address functional deficits -SS -- PT Frequency 3-5x/wk -SS 3-5x/wk -LG Treatment/Interventions Balance Training;Bed mobility;Endurance training;Equipment eval/education;Functional activity;Functional transfer training;Gait training;Neuromuscular re-education;Stair traini ng;Strengthening;Therapeutic activity;Therapeutic exercise;Transfer training -SS Balance Training;Functional activity;Functional transfer training;Therapeutic activity;Transfer training;Gait training;Therapeutic exercise -LG PT Equipment Recommended -- Wheeled walker -LG Progress Slow progress, cognitive deficits -SS Slow progress, cognitive deficits -LG User Perdomo (r) = Recorded By, (t) = Taken By, (c) = Cosigned By Initials Name Effective Dates LG Saba Knight, PT 08/23/21 - SS Sid Anguiano DPT 12/29/18 - PT Notes 10/20/2021 12:05 PM Progress Notes signed by Sid Anguiano DPT , BLOCK GREASER Eval and Treat Last 72 Hours BLOCK GREASER Evaluation No documentation. BLOCK GREASER Treatment No documentation. Clinical Swallow Study No documentation. BLOCK GREASER Notes Notes from 10/18/21 through 10/20/21 No [...] SW received call from patient's ADELIA/Raine Redman ([phone]). She stated she has not received call from [facility] business office yet. AMARJIT notified [facility] admissions and requested the process be expedited. Addendum: SW received call from [facility] admissions/Mauro. She confirmed business office and herself spoke with DPOA, explained Medicaid and answered questions regarding possibly private pay, DPOA expressed that she does NOT want patient on Medicaid. Per admissions, patient has been accepted at [facility] and [facility] for SNF, facility SW will assist with LTC planning. SW spoke with patient's DPOA/Raine Sale. She verified the above information, agreed to [facility] submitting insurance auth for SNF and speaking with facility SW about LTC options. She had nofurther questions for SW at this time. SW notified [facility]/Mauro. Insurance auth will be started when updated [...] Outcome: Progressing * Plan of Care - Renetta Ledbetter RN - 10/18/2021 5:52 [...] Ledbetter, RN * Plan of Care - Wellington Delgado MSW - 10/18/2021 1:29 PM CDT [facility] pricing coordinator/Mauro completed on site assessment. Business office will complete financial screening with DPOA to determine if patient will qualify for Medicaid. AMARJIT notified patient's DPOA/Raine Redman ([phone]). She voiced understanding, verified she is okay with speaking to [facility] business office. She had no further questions for SW at this time. * Plan of Care [...] None Principal Problem: Sepsis due to COVID-19 ([facility]) ([facility]) [U07.1,A41.89] Intake/Output 10/14/21 0700 - 10/15/21 0659 10/15/21 0700 - 10/16/21 0659 Total Total Intake (ml) [...] Intravenous Therapy/Heparin/Saline Lock 20 ............filed at 10/17/2021 09 Gait/Transferring 10 ............filed at 10/17/2021 09 Mental Status 15 ............filed at 10/17/2021 09 Hardin Fall Risk Score 85 ............filed at 10/17/2021 09 Vital Signs Report 10/16 0710/17 0659 10/17 0700 10/17 1545 Most Recent Temp (??C) 36.5 [...] 16 Nursing Nutrition Feeding Level of Assistance 10/16 204 Needs assist 10/16 09 Needs assist 10/16 [...] bed 10/14 2119 Resting in bed 10/14 2014 Resting in bed 10/14 193 Resting in [...] 10/15 2200 Maximum assist, patient does 25-49% 10/15 2000 Maximum assist, patient does 25-49% 10/15 1223 Maximum assist, patient does 25-49% 10/15 0800 Maximum assist, patient does 25-49% 10/14 2013 Maximum assist, patient does 25-49% Assistive Device 10/17 0832 Mechanical lift 10/17 2039 Mechanical lift 10/16 854 Mechanical lift 10/15 1222 Mechanical lift 10/15 08 Mechanical lift 10/14 2013 Mechanical lift Repositioned [...] Semi Bird's 10/15 1035 Left side 10/15 0432 Left side;Pillow support 10/14 2235 Right side;Pillow [...] 20 10/15 2200 HOB less than 20 10/16 1999 HOB 30 10/15 1700 Self regulated 10/15 1223 Self regulated 10/15 1035 Self regulated 10/15 08 Self regulated 10/14 2013 Self regulated Heels/Feet 10/16 204 Foot of bed elevated 10/16 0855 Foot [...] of bed elevated Range of Motion 10/16 204 Active;All extremities 10/16 0855 Active;All extremities 10/16 0400 Active;All extremities 10/16 0000 Active;All extremities 10/15 220 Active;All extremities 10/16 1999 Active;All extremities 10/14 2013 Active;All extremities Type of Device 10/17 09 Mechanical compression 10/16 204 Mechanical compression 10/16 0600 Mechanical compression 10/16 0400 Mechanical compression 10/16 0200 Mechanical compression 10/16 0000 Mechanical compression 10/15 220 Mechanical compression 10/16 1999 Mechanical compression 10/14 2013 -- (Comment: lovenox) Mechanical Compression Site 10/17 09 Bilateral 10/16 2040 Bilateral 10/16 0731 Bilateral 10/16 0600 Bilateral 10/16 0400 Bilateral 10/16 0200 Bilateral 10/16 0000 Bilateral 10/15 2200 Bilateral 10/16 1999 Bilateral Mechanical Compression Type 10/17 0900 IPC/SCD 10/16 2040 IPC/SCD 10/16 0731 IPC/SCD 10/16 0600 IPC/SCD 10/16 0400 IPC/SCD 10/16 0200 IPC/SCD 10/16 0000 IPC/SCD 10/15 2200 IPC/SCD 10/16 1999 IPC/SCD Mechanical Compression Status 10/17 0900 On 10/16 204 On 10/16 0731 On 10/16 0600 On 10/16 0400 On 10/16 0200 On 10/16 0000 On 10/15 2200 On 10/15 2000 On Default Flowsheet Data (last 24 hours) Sitter Documentation Row Name 10/17/21 0900 10/16/21203910/16/21 1800 Sitter Documentation Sitter Continued Continued Continued Sitter Type Continuous Virtual Patient Observation Continuous Virtual Patient Observation Continuous Virtual Patient Observation RN Safety Check No unsafe behaviors observed, safe environment maintained -- -- , Meds and Admin Active Only All Meds/Most Recent Administrations All Meds/Most Recent Administrations sodium chloride 0.9% bolus 1,000 mL [[id number]] Ordering Provider: Gian Jackson MD Status: Completed [...] RN sodium chloride 0.9% bolus 1,400 mL [[id number]] Ordering Provider: Alysha Ramirez MD Status: Completed [...] dexAMETHasone (DECADRON) 4 mg/mL injection 6 mg [[id number]] Ordering Provider: Alysha Ramirez MD Status: Completed (Past End Date/Time) Ordered On: 10/04/211711 Starts/Ends: 10/04/211712 - 10/04/211800 Ordered Dose (Remaining/Total): 6 mg (0/1) Route: intravenous Frequency: Once Ordered Rate/Order Duration: -- / 2 Minutes Timestamps Action Dose / Duration Route Other Information 10/04/211758 Given 6 mg 2 Minutes intravenous Performed by: Esau Wong RN Scanned Package: 36822-731-35 folic acid (FOLVITE) tablet 1 mg [[id number]] Ordering Provider: Miguel Flores MD Status: Dispensed Ordered On: 10/05/2120 Start: 10/05/21899 Ordered Dose (Remaining/Total): 1 mg (--/--) Route: oral Frequency: Daily Ordered Rate/Order Duration: -- / -- Timestamps Action Dose Route Other Information 10/17/21929 Given 1 mg oral Performed by: Vy Vasquez RN Scanned Package: 21768-069-[address] (PROTONIX) extended release tablet 40 mg [[id number]] Ordering Provider: Miguel Flores MD Status: Dispensed Ordered On: 10/05/2120 Start: 10/05/21899 Ordered Dose (Remaining/Total): 40 mg (--/--) Route: oral Frequency: Daily Ordered Rate/Order Duration: -- / -- Admin Instructions: Do not crush, chew, cut, dissolve, open or otherwise manipulate tablet/capsule. Timestamps Action Dose Route Other Information 10/17/21929 Given 40 mg oral Performed by: Vy Vasquez RN Scanned Package: 56829-801-82 pravastatin (PRAVACHOL) tablet 40 mg [[id number]] Ordering Provider: Miguel Flores MD Status: Dispensed Ordered On: 10/05/2120 Start: 10/05/21899 Ordered Dose (Remaining/Total): 40 mg (--/--) Route: oral Frequency: Daily Ordered Rate/Order Duration: -- / -- Timestamps Action Dose Route Other Information 10/17/21 0931 Given 40 mg oral Performed by: Vy Vasquez RN Scanned Package: 39931-675-49 thiamine (VITAMIN B1) tablet 100 mg [[id number]] Ordering Provider: Miguel Flores MD Status: Dispensed Ordered On: 10/05/2120 Start: 10/05/21899 Ordered Dose (Remaining/Total): 100 mg (--/--) Route: oral Frequency: Every morning Ordered Rate/Order Duration: -- / -- Timestamps Action Dose Route Other Information 10/17/2130 Given 100 mg oral Performed by: Vy Vasquez RN Scanned Package: [id number] ondansetron ODT (ZOFRAN-ODT) disintegrating tablet 4 mg [[id number]] Ordering Provider: Miguel Flores MD Status: Dispensed Ordered On: 10/05/2120 Start: 10/05/2120 Ordered Dose (Remaining/Total): 4 mg (--/--) Route: oral Frequency: Every 6 hours PRN Ordered Rate/Order Duration: -- / -- Timestamps Action Dose Route Other Information 10/07/21 1319 Given 4 mg oral Performed by: Aby Hsieh RN Scanned Package: 85790-848-94 ondansetron (ZOFRAN) injection 4 mg [[id number]] Ordering Provider: Miguel Flores MD Status: Verified Ordered On: 10/05/2120 Start: 10/05/2120 Ordered Dose (Remaining/Total): 4 mg (--/--) Route: intravenous Frequency: Every 6 hours PRN Ordered Rate/Order Duration: -- / 2 Minutes (No admins scheduled or recorded for this medication) acetaminophen (TYLENOL) tablet 650 mg [[id number]] Ordering Provider: Miguel Flores MD Status: Dispensed Ordered On: 10/05/2120 Start: 10/05/2120 Ordered Dose (Remaining/Total): 650 mg (--/--) Route: oral Frequency: Every 4 hours PRN Ordered Rate/Order Duration: -- / -- Timestamps Action Dose Route Other Information 10/09/21 1101 Given 650 mg oral Performed by: Renetta Ledbetter RN Scanned Package: 9718-9600-80, 8046-7186-25 remdesivir (VEKLURY) 200 mg/290 mL in sodium chloride 0.9% infusion (premix) 200 mg [[id number]] Ordering Provider: Saqib Currie, Status: Completed (Past End Date/Time) Ordered On: 10/04/211717 Starts/Ends: 10/04/21 172 - 10/04/21 1910 Ordered Dose (Remaining/Total): 200 mg (0/1) Route: intravenous Frequency: Every 24 hours Ordered Rate/Order Duration: 290 mL/hr / 60 Minutes Admin Instructions: Do not shake or tube. Question Answer Comment [facility] appropriate use criteria for remdesivir are limited [...] Performed by: Esau Wong RN Scanned Package: [address]-1, 3628-8687-19 remdesivir (VEKLURY) 100 mg/270 mL in sodium chloride 0.9% infusion (premix) 100 mg [[id number]] Ordering Provider: Saqib Currie, Status: Completed (Past End Date/Time) Ordered On: 10/04/211717 Starts/Ends: 10/05/21 170 - 10/08/21 1739 Ordered Dose (Remaining/Total): 100 mg (0/4) Route: intravenous Frequency: Every 24 hours Ordered Rate/Order Duration: 270 mL/hr / 60 Minutes Admin Instructions: Do not shake or tube. Note to pharmacy: Double check timing upon verification Question Answer Comment [facility] appropriate use criteria for remdesivir are limited [...] Performed by: Aby Hsieh RN Scanned Package: [address]-4, 7185-4439-24 potassium chloride ER (KLOR-CON) extended release tablet 20 mEq [[id number]] Ordering Provider: Elisa Oliva MD Status: Completed (Past End Date/Time) Ordered On: 10/06/21 1121 Starts/Ends: 10/06/21 1200 - 10/06/21 1217 Ordered Dose (Remaining/Total): 20 mEq (0/1) Route: oral Frequency: Once Ordered Rate/Order Duration: -- / -- Admin Instructions: Do not crush, chew, cut, dissolve, open or otherwise manipulate tablet/capsule. Timestamps Action Dose Route Other Information 10/06/21 121 Given 20 mEq oral Performed by: Ken Hernández Scanned Package: 3905-1976-64 terazosin (HYTRIN) capsule 10 mg [[id number]] Ordering Provider: Miguel Flores MD Status: Dispensed Ordered On: 10/07/21642 Start: 10/07/21 2100 Ordered Dose (Remaining/Total): 10 mg (--/--) Route: oral Frequency: Nightly Ordered Rate/Order Duration: -- / -- Timestamps Action Dose Route Other Information 10/16/212043 Given 10 mg oral Performed by: Aniyah Berumen RN Scanned Package: 48959-624-00, 96975-132-01 metoprolol tartrate (LOPRESSOR) immediate release tablet 100 mg [[id number]] Ordering Provider: Miguel Flores MD Status: Dispensed Ordered On: 10/07/21 06 Start: 10/07/21 0900 Ordered Dose (Remaining/Total): 100 mg (--/--) Route: oral Frequency: 2 times daily Ordered Rate/Order Duration: -- / -- Timestamps Action Dose Route Other Information 10/17/21 0931 Given 100 mg oral Performed by: Vy Vasquez RN Scanned Package: 93565-821-78, 76105-899-21 potassium chloride ER (KLOR-CON) extended release tablet 30 mEq [[id number]] Ordering Provider: Elisa Oliva MD Status: Completed (Past End Date/Time) Ordered On: 10/07/21 0720 Starts/Ends: 10/07/21 0800 - 10/07/21 1146 Ordered Dose (Remaining/Total): 30 mEq (0/2) Route: oral Frequency: Every 4 hours Ordered Rate/Order Duration: -- / -- Admin Instructions: Total dose = 60 mEq Do not crush, chew, cut, dissolve, open or otherwise manipulate tablet/capsule. Timestamps Action Dose Route Other Information 10/07/21 1146 Given 30 mEq oral Performed by: Aby Hsieh RN Scanned Package: 3500-3301-18, 6035-5893-61 magnesium sulfate 2 g/50 mL in water (premix) 2 g [[id number]] Ordering Provider: Elisa Oliva MD Status: Dispensed [...] mL in sterile water (premix) 2,000 mg [[id number]] Ordering Provider: Miguel Flores MD Status: Completed [...] (NORCO) 5-325 mg per tablet 1 tablet [[id number]] Ordering Provider: Miguel Flores MD Status: Dispensed [...] Performed by: Aniyah Berumen RN Scanned Package: 37715-269-40 enoxaparin (LOVENOX) syringe 40 mg [[id number]] Ordering Provider: Saqib Currie DO Status: Dispensed Ordered On: 10/10/21 1431 Start: 10/10/21 2100 Ordered Dose (Remaining/Total): 40 mg (--/--) Route: subcutaneous Frequency: Daily (for enoxaparin) Ordered Rate/Order Duration: -- / -- Timestamps Action Dose Route / Site Other Information 10/16/21 2043 Given 40 mg subcutaneous Left Lower Abdomen Performed by: Aniyah Berumen RN Scanned Package: 19749-350-39 aspirin enteric coated tablet 81 mg [[id number]] Ordering Provider: Saqib Currie DO Status: Dispensed Ordered On: 10/10/21 1431 Start: 10/11/21 0900 Ordered Dose (Remaining/Total): 81 mg (--/--) Route: oral Frequency: Daily Ordered Rate/Order Duration: -- / -- Admin Instructions: Do not crush, chew, cut, dissolve, open or otherwise manipulate tablet/capsule. Timestamps Action Dose Route Other Information 10/17/21 0931 Given 81 mg oral Performed by: Vy Vasquez RN Scanned Package: 97456-909-70 * ECIN Note - Wellington Delgado MSW [...] Visit Reason -- unavailable, receiving bath from [facility]. -EG -- Family/Caregiver Present -- No [...] changed -LG Cognition Cognition Comments Pt is NATIVE -LG Pt is NATIVE -LG Overall Cognitive Status Impaired -LG Impaired [...] Notes signed by Saba Knight, PT , BLOCK GREASER Eval and Treat Last 72 Hours BLOCK GREASER Evaluation No documentation. BLOCK GREASER Treatment No documentation. Clinical Swallow Study No documentation. BLOCK GREASER Notes Notes from 10/15/21 through 10/17/21 No notes of this type exist for this encounter. * Plan of Care - Wellington Delgado MSW - 10/17/2021 12:18 PM CDT No accepting facility at this time. AMARJIT followed up with pending facilities. Addendum: [facility] [facility] admissions/Mauro requested to do on-site assessment. It is scheduled for tomorrow 10/18 morning. AMARJIT sent Epic secure chat to GAURAV BOWDEN, and Dr. Gao. AMARJIT sent additional referrals. [...] & alert. Oriented to self. Follows commands. HENSON with generalized weakness. Vitals WNL. Afebrile. Deneies SOB or pain. Covid precautions/ Isolation maintained. Labs WNL. Encourage nutrition & mobility. Planned discharge to [facility] when bed available. Continue Virtual sitter maintained [...] Ledbetter RN * Plan of Care - Jaja Das MSW - 10/14/2021 9:16 AM CDT Weekend follow up - SW left message for Anastacio [phone] from [facility] to check on bed availability this [...] times this afternoon. * ECIN Note - Wellington Delgado MSW - 10/13/2021 1:16 PM CDT Images from [...] None Principal Problem: Sepsis due to COVID-19 ([facility]) ([facility]) [U07.1,A41.89] Intake/Output 10/10/21 0700 - 10/11/21 0659 10/11/21 0700 - 10/12/21 0659 10/12/21 0700 - 10/13/21 0659 Total Total 5566-5433 2510-5407 5103-7531 Total Intake (ml) 520 960 -- -- [...] from EMR) 10/07/2021 (25 points) ............filed at 10/13/2021 075 History of Falling 25 ............filed at 10/13/2021 075 Secondary Diagnosis 15 ............filed at 10/13/2021 075 Ambulatory Aids 0 ............filed at 10/13/2021 075 Intravenous Therapy/Heparin/Saline Lock 20 ............filed at 10/13/2021751 Gait/Transferring 10 ............filed at 10/13/2021 075 Mental Status 15 ............filed at 10/13/2021 [facility] Hardin Fall Risk Score 85 ............filed at 10/13/2021 0752 Vital Signs Report 10/12 0710/13 0659 10/13 0710/13 1316 Most Recent Temp (??C) 36.5 - 37 36.7 36.7 (98.1) 10/13 0845 Pulse 80 - 107 96 96 10/13 0945 Resp 16 - 18 18 18 10/13 0945 SpO2 (%) 95 - 100 95 95 10/13 0945 BP 151/96 - 168/105 145/99 145/99 10/13 0945 MAP (mmHg) 113 - 117 115 115 / 0945 Non Violent Restraint Flowsheet Row Most Recent Value Restraint Alternative Less Restrictive Alternative Low Bed, Bed Exit Alarm, Increased frequency of nursing rounds filed at 10/13/2021 0752 Restraint Reason Restraint Type (NV) Every 2 [...] 10/11 1042 Needs assist;Needs set up 10/11 0900 Needs set up;Needs assist 10/11 0700 Able to feed self 10/11 1999 Needs assist 10/10 1700 Needs assist 10/10 1340 Needs assist Appetite [...] Turn 10/12 0213 Sleeping 10/12 0015 Sleeping 10/11 2208 Sleeping 10/11 1950 Sleeping 10/11 1800 Resting in bed 10/11 1700 Sleeping 10/11 1600 Chair 10/11 1500 Chair 10/11 1434 Chair 10/11 1200 Chair 10/11 1055 Chair 10/11 1042 Chair 10/11 0900 Resting in bed 10/11 0802 Sleeping 10/11 0700 Sleeping 10/11 0500 Sleeping 10/11 0425 Sleeping 10/11 0400 Sleeping 10/11 0300 Sleeping 10/11 0213 Sleeping 10/11 0100 Sleeping 10/11 0019 Sleeping 10/10 2326 Resting in bed 10/10 2210 Resting in bed 10/10 2000 Resting in bed 10/10 1700 Resting in bed 10/10 1340 Being fed Level of Assistance 10/14 751 Maximum assist, patient does 25-49% 10/13 406 Maximum assist, patient does 25-49% 10/12 192 Maximum assist, patient does 25-49% 10/12 1514 Maximum assist, patient does 25-49% 10/12 0735 Maximum assist, patient does 25-49% 10/11 1950 Maximum assist, patient does 25-49% 10/11 170 Maximum assist, patient does 25-49% 10/11 899 Maximum assist, patient does 25-49% 10/11 699 Maximum assist, patient does 25-49% 10/11 1999 Maximum assist, patient does 25-49% 10/10 1700 Maximum assist, patient does 25-49% 10/10 1340 Maximum assist, patient does 25-49% Assistive Device 10/14 751 Mechanical lift 10/12 1921 Mechanical lift 10/12 734 Mechanical lift 10/11 1950 Mechanical lift 10/11 899 Mechanical lift 10/11 699 Mechanical lift 10/11 1999 Gait belt;Walker 10/10 170 Gait belt;Walker Repositioned 10/13 1020 Left side;Pillow support 10/13 075 Supine 10/13 06 Right side 10/13 0407 Left side;Pillow support [...] Positioning Frequency 10/13 1020 Every 2 hours 08 0752 Every 2 hours 08 0600 Every 2 hours 08 0407 Every 2 hours 10/13 0200 Every 2 hours 10/12 1922 Every 2 hours 10/12 1514 Every 2 hours 10/12 1200 Every 2 hours 10/12 0735 Every 2 hours 10/12 0213 Every 2 hours 10/11 1950 Every 2 hours 10/11 1700 Every 2 hours 10/11 1500 Every 2 hours 10/11 1200 Every 2 hours 10/11 1042 Every 2 hours 10/11 0900 Every 2 hours 10/11 0700 Every 2 hours 10/11 0500 Able to turn self 10/11 0400 Able to turn self 10/11 0300 Able to turn self 10/11 0100 Able to turn self 10/10 2326 Every 2 hours 10/10 2100 Every 2 hours 10/10 2000 Every 2 hours 10/10 1700 Every 2 hours Head of Bed Elevated 10/13 1020 HOB 30 10/13 0752 HOB 30 10/13 0407 HOB 30 10/12 1922 HOB 30 10/12 1514 HOB 30 10/12 1200 HOB 30 10/12 0735 HOB 30 10/12 0213 HOB 30 07/06 1950 HOB 30 07/06 1700 HOB 30 07/06 1500 HOB 60 07/06 1200 HOB 60 / 1042 HOB 60 07/06 0900 HOB 30 /06 0700 HOB 30 /06 0500 Self regulated 10/11 0400 Self regulated 10/11 0100 Self regulated 10/10 2326 HOB less than 20 10/10 2100 HOB 30 10/10 2000 HOB 30 Heels/Feet 10/13 0407 Foot of bed elevated 10/12 1922 Foot of bed elevated 10/12 1514 Foot of bed elevated 10/12 0213 Foot of bed elevated 10/11 1950 Foot of bed elevated 10/11 0500 Foot of bed elevated 10/11 0400 Foot of bed elevated 10/11 0300 Foot of bed elevated 10/11 0100 Foot of bed elevated / 2100 Foot of bed elevated 10/10 2000 Foot of bed elevated Range of Motion 10/13 075 Active;All extremities 10/13 406 Active;All extremities 10/12 192 Active;All extremities 10/11 1949 Active;All extremities 10/11 1999 Active;All extremities Type of Device 10/12 1921 Mechanical compression 10/12 734 Mechanical compression 10/11 104 Mechanical compression 10/11 699 Mechanical compression 10/11 1999 -- (Comment: lovenox) 10/10 1958 Mechanical compression Mechanical Compression Site 10/13 1999 Bilateral 10/12 192 Bilateral 10/12 734 Bilateral 10/11 194 Bilateral 10/11 104 Bilateral 10/11 08 Bilateral 10/11 07 Bilateral 10/10 1958 Bilateral Mechanical Compression Type 10/13 1999 IPC/SCD 10/12 192 IPC/SCD 10/12 0635 IPC/SCD 10/11 194 IPC/SCD 10/11 1042 IPC/SCD 10/11 08 IPC/SCD 10/11 07 IPC/SCD 10/10 1958 IPC/SCD Mechanical Compression Status 10/13 1999 On 10/12 192 On 10/12 734 On 10/11 194 On 10/11 104 On 10/11 08 Off 10/11 07 Off 10/10 1958 Off Default Flowsheet Data (last 24 hours) Sitter Documentation Row Name 10/13/21 0752 10/12/21 2300 10/12/211921 Sitter Documentation Sitter Continued Continued Continued Sitter [...] Administrations sodium chloride 0.9% bolus 1,000 mL [[id number]] Ordering Provider: Gian Jackson MD Status: Completed [...] RN sodium chloride 0.9% bolus 1,400 mL [[id number]] Ordering Provider: Alysha Ramirez MD Status: Completed [...] dexAMETHasone (DECADRON) 4 mg/mL injection 6 mg [[id number]] Ordering Provider: Alysha Ramirez MD Status: Completed (Past End Date/Time) Ordered On: 10/04/21 1712 Starts/Ends: 10/04/21 1713 - 10/04/211800 Ordered Dose (Remaining/Total): 6 mg (0/1) Route: intravenous Frequency: Once Ordered Rate/Order Duration: -- / 2 Minutes Timestamps Action Dose / Duration Route Other Information 10/04/211758 Given 6 mg 2 Minutes intravenous Performed by: Esau Wong RN Scanned Package: 12324-221-92 folic acid (FOLVITE) tablet 1 mg [[id number]] Ordering Provider: Miguel Flores MD Status: Dispensed Ordered On: 10/05/2120 Start: 10/05/21899 Ordered Dose (Remaining/Total): 1 mg (--/--) Route: oral Frequency: Daily Ordered Rate/Order Duration: -- / -- Timestamps Action Dose Route Other Information 10/13/21946 Given 1 mg oral Performed by: Elena Cowan RN Scanned Package: 02304-205-[address] (PROTONIX) extended release tablet 40 mg [[id number]] Ordering Provider: Miguel Flores MD Status: Dispensed Ordered On: 10/05/2120 Start: 10/05/21899 Ordered Dose (Remaining/Total): 40 mg (--/--) Route: oral Frequency: Daily Ordered Rate/Order Duration: -- / -- Admin Instructions: Do not crush, chew, cut, dissolve, open or otherwise manipulate tablet/capsule. Timestamps Action Dose Route Other Information 10/13/21946 Given 40 mg oral Performed by: Elena Cowan RN Scanned Package: 83109-912-33 pravastatin (PRAVACHOL) tablet 40 mg [[id number]] Ordering Provider: Miguel Flores MD Status: Dispensed Ordered On: 10/05/2120 Start: 10/05/21899 Ordered Dose (Remaining/Total): 40 mg (--/--) Route: oral Frequency: Daily Ordered Rate/Order Duration: -- / -- Timestamps Action Dose Route Other Information 10/13/21946 Given 40 mg oral Performed by: Elena Cowan RN Scanned Package: 22909-840-52 thiamine (VITAMIN B1) tablet 100 mg [[id number]] Ordering Provider: Miguel Flores MD Status: Dispensed Ordered On: 10/05/2120 Start: 10/05/21899 Ordered Dose (Remaining/Total): 100 mg (--/--) Route: oral Frequency: Every morning Ordered Rate/Order Duration: -- / -- Timestamps Action Dose Route Other Information 10/13/21 0947 Given 100 mg oral Performed by: Elena Cowan RN Scanned Package: [id number] ondansetron ODT (ZOFRAN-ODT) disintegrating tablet 4 mg [[id number]] Ordering Provider: Miguel Flores MD Status: Dispensed Ordered On: 10/05/2120 Start: 10/05/2120 Ordered Dose (Remaining/Total): 4 mg (--/--) Route: oral Frequency: Every 6 hours PRN Ordered Rate/Order Duration: -- / -- Timestamps Action Dose Route Other Information 10/07/21 1319 Given 4 mg oral Performed by: Aby Hsieh RN Scanned Package: 47760-046-41 ondansetron (ZOFRAN) injection 4 mg [[id number]] Ordering Provider: Miguel Flores MD Status: Verified Ordered On: 10/05/2120 Start: 10/05/2120 Ordered Dose (Remaining/Total): 4 mg (--/--) Route: intravenous Frequency: Every 6 hours PRN Ordered Rate/Order Duration: -- / 2 Minutes (No admins scheduled or recorded for this medication) acetaminophen (TYLENOL) tablet 650 mg [[id number]] Ordering Provider: Miguel Flores MD Status: Dispensed Ordered On: 10/05/2120 Start: 10/05/2120 Ordered Dose (Remaining/Total): 650 mg (--/--) Route: oral Frequency: Every 4 hours PRN Ordered Rate/Order Duration: -- / -- Timestamps Action Dose Route Other Information 10/09/21 1101 Given 650 mg oral Performed by: Renetta Ledbetter RN Scanned Package: 1881-9005-68, 9467-0528-09 remdesivir (VEKLURY) 200 mg/290 mL in sodium chloride 0.9% infusion (premix) 200 mg [[id number]] Ordering Provider: Saqib Currie DO Status: Completed (Past End Date/Time) Ordered On: 10/04/211717 Starts/Ends: 10/04/21 1723 - 10/04/21 1910 Ordered Dose (Remaining/Total): 200 mg (0/1) Route: intravenous Frequency: Every 24 hours Ordered Rate/Order Duration: 290 mL/hr / 60 Minutes Admin Instructions: Do not shake or tube. Question Answer Comment [facility] appropriate use criteria for remdesivir are limited [...] Performed by: Esau Wong RN Scanned Package: [address]-6, 9230-0373-63 remdesivir (VEKLURY) 100 mg/270 mL in sodium chloride 0.9% infusion (premix) 100 mg [[id number]] Ordering Provider: Saqib Currie, Status: Completed (Past End Date/Time) Ordered On: 10/04/211717 Starts/Ends: 10/05/21 1704 - 10/08/21 1739 Ordered Dose (Remaining/Total): 100 mg (0/4) Route: intravenous Frequency: Every 24 hours Ordered Rate/Order Duration: 270 mL/hr / 60 Minutes Admin Instructions: Do not shake or tube. Note to pharmacy: Double check timing upon verification Question Answer Comment [facility] appropriate use criteria for remdesivir are limited [...] Performed by: Aby Hsieh RN Scanned Package: [address]-5, 4407-6667-38 potassium chloride ER (KLOR-CON) extended release tablet 20 mEq [[id number]] Ordering Provider: Elisa Oliva MD Status: Completed (Past End Date/Time) Ordered On: 10/06/21 1121 Starts/Ends: 10/06/21 1200 - 10/06/21 1217 Ordered Dose (Remaining/Total): 20 mEq (0/1) Route: oral Frequency: Once Ordered Rate/Order Duration: -- / -- Admin Instructions: Do not crush, chew, cut, dissolve, open or otherwise manipulate tablet/capsule. Timestamps Action Dose Route Other Information 10/06/21 121 Given 20 mEq oral Performed by: Ken Hernández Scanned Package: 0854-7273-92 terazosin (HYTRIN) capsule 10 mg [[id number]] Ordering Provider: Miguel Flores MD Status: Dispensed Ordered On: 10/07/21642 Start: 10/07/21 2100 Ordered Dose (Remaining/Total): 10 mg (--/--) Route: oral Frequency: Nightly Ordered Rate/Order Duration: -- / -- Timestamps Action Dose Route Other Information 10/12/21 195 Given 10 mg oral Performed by: Della Paniagua RN Scanned Package: 59547-265-71, 53416-207-59 metoprolol tartrate (LOPRESSOR) immediate release tablet 100 mg [[id number]] Ordering Provider: Miguel Flores MD Status: Dispensed Ordered On: 10/07/21642 Start: 10/07/21 0900 Ordered Dose (Remaining/Total): 100 mg (--/--) Route: oral Frequency: 2 times daily Ordered Rate/Order Duration: -- / -- Timestamps Action Dose Route Other Information 10/13/21 0948 Given 100 mg oral Performed by: Elena Cowan RN Scanned Package: 21751-617-89, 08869-854-71 potassium chloride ER (KLOR-CON) extended release tablet 30 mEq [[id number]] Ordering Provider: Elisa Oliva MD Status: Completed (Past End Date/Time) Ordered On: 10/07/21 0720 Starts/Ends: 10/07/21 0800 - 10/07/21 1146 Ordered Dose (Remaining/Total): 30 mEq (0/2) Route: oral Frequency: Every 4 hours Ordered Rate/Order Duration: -- / -- Admin Instructions: Total dose = 60 mEq Do not crush, chew, cut, dissolve, open or otherwise manipulate tablet/capsule. Timestamps Action Dose Route Other Information 10/07/21 1146 Given 30 mEq oral Performed by: Aby Hsieh RN Scanned Package: 7332-6687-40, 3515-7816-54 magnesium sulfate 2 g/50 mL in water (premix) 2 g [[id number]] Ordering Provider: Elisa Oliva MD Status: Dispensed (Past End Date/Time) Ordered On: 10/07/21 1058 Starts/Ends: 10/07/21 1130 - 10/08/21 1130 Ordered Dose (Remaining/Total): 2 g (1/) Route: intravenous Frequency: Once Ordered Rate/Order Duration: -- / 60 Minutes Timestamps Action Duration Route Other Information 10/07/21 1248 Restarted 60 Minutes intravenous Performed by: Aby Hsieh RN ceFAZolin (ANCEF) 2,000 mg/20 mL in sterile water (premix) 2,000 mg [[id number]] Ordering Provider: Miguel Flores MD Status: Completed [...] (NORCO) 5-325 mg per tablet 1 tablet [[id number]] Ordering Provider: Miguel Flores MD Status: Dispensed [...] Performed by: Della Paniagua RN Scanned Package: 20905-136-65 enoxaparin (LOVENOX) syringe 40 mg [[id number]] Ordering Provider: Saqib Currie DO Status: Dispensed Ordered On: 10/10/21 143 Start: 10/10/21 2100 Ordered Dose (Remaining/Total): 40 mg (--/--) Route: subcutaneous Frequency: Daily (for enoxaparin) Ordered Rate/Order Duration: -- / -- Timestamps Action Dose Route / Site Other Information 10/12/211999 Given 40 mg subcutaneous Left Lower Abdomen Performed by: Della Paniagua RN Scanned Package: 45866-958-55 aspirin enteric coated tablet 81 mg [[id number]] Ordering Provider: Saqib Currie DO Status: Dispensed Ordered On: 10/10/21 143 Start: 10/11/21 0900 Ordered Dose (Remaining/Total): 81 mg (--/--) Route: oral Frequency: Daily Ordered Rate/Order Duration: -- / -- Admin Instructions: Do not crush, chew, cut, dissolve, open or otherwise manipulate tablet/capsule. Timestamps Action Dose Route Other Information 10/13/21 0947 Given 81 mg oral Performed by: Elena Cowan RN Scanned Package: 16560-195-83 * ECIN Note - Wellington Delgado, LOCOMOTIVE OBSERVER - 10/13/2021 1:15 PM CDT Images from [...] of urine. Max assist for clean up. -LS Bed Mobility Comments 1 Supine>sit Mod A. Able to sit EOB CGA with UE support, - CS NA- pt is up in chair upon arrival. -LS Trials/Comments 1 Sit>stand from EOB to WW [...] descent. -LS Cognition Comments -- Pt is NATIVE. Also has limited vision. -LS Overall Cognitive Status Impaired -CS Impaired -LS Arousal/Alertness Delayed responses to stimuli -CS Alert;Delayed responses to stimuli -LS Attention Span Attends with cues to redirect -CS Difficulty attending to directions;Distractability-LS Memory Decreased short term memory;Decreased recall of recent events -CS Decreased short term memory;Decreased retirement memory;Decreased recall of recent events;Decreased recall of [...] Dates CS Zoey Alfred, OT 08/17/21 - Diamond Mata, OT 12/07/20 - OT Notes 10/11/2021 2:26 PM Progress Notes signed by Zoey Alfred, [...] changed -LG Cognition Cognition Comments Pt is NATIVE -LG Overall Cognitive Status Impaired -LG Arousal/Alertness [...] Notes signed by Saba Knight, PT , BLOCK GREASER Eval and Treat Last 72 Hours BLOCK GREASER Evaluation No documentation. BLOCK GREASER Treatment No documentation. Clinical Swallow Study No documentation. BLOCK GREASER Notes Notes from 10/11/21 through 10/13/21 No notes of this type exist for this encounter. * Plan of Care - Wellington Delgado MSW - 10/13/2021 12:31 PM CDT AMARJIT followed up with all pending referrals and [facility] to determine if patient would be able to return. AMARJIT notified patient's DPOA/Raine Redman ([phone]). She adamantly declined patient returning to [facility]. AMARJIT sent additional referrals. * Plan of [...] Delgado MSW - 10/12/2021 2:51 PM CDT SW followed up with accepting/pending SNFs to verify referral status[facility] SW left for [facility] to determine if they are able to [...] Outcome: Progressing * Plan of Marilyn - Elena Cowan RN - 10/11/2021 2:47 [...] voiced understanding. Addendum: AMARJIT sent messages via [employer] to pending facilities to determine referral status. [...] call light at the bedside. Renetta Ledbetter, GAURAV * Plan of Care - Yun Torre [...] Operative Report PATIENT NAME: Jania Redman MR#: [id number] DATE OF : 1950 ACCT#: @ACCOUNTNO@ DATE OF OPERATION: 10/08/2021 ROOM#: @ROOM@ PREOPERATIVE DIAGNOSIS: Right intertrochanteric hip fracture. POSTOPERATIVE DIAGNOSIS: right intertrochanteric hip fracture. PROCEDURE PERFORMED: Right Das [employer] Nephew Trigen Intertan trochanteric nailing of intertrochanteric femur fracture SURGEON: Miguel Flores MD MIDDLEWARE DEVELOPER: Cielo Persaud EBL: 100 ccs ANESTHESIA: GETA [...] provide current aerosol therapy. * Plan of Care - Ken Hernández - 10/06/2021 1:37 PM [...] None Principal Problem: Sepsis due to COVID-19 ([facility] ([facility]) [U07.1,A41.89] Intake/Output 10/04/21 0700 - 10/05/21 0659 10/05/21 0700 - 10/06/21 0659 Total 9080-7066 6927-4410 9986-7206 Total Intake (ml) 450 460 100 100 [...] Signs Report 10/05 0700 10/06 0659 10/06 0700 10/06 0914 Most Recent Temp (??C) 36.5 - 36.6 Pulse 82 - 106 89 10/05 2214 Resp 16 - 24 SpO2 (%) 92 - 99 98 98 10/06 0802 BP 137/73 - 167/110 137/73 10/05 2214 MAP (mmHg) 91 - 127 Default Flowsheet Data (most recent) Endurance Tests No documentation. Nursing Nutrition Feeding Level of Assistance 10/05 1300 Needs set up;Able to feed self Appetite 10/05 1300 Good Nursing Mobility Activity 10/05 2214 Chair 10/05 192 Chair 10/05 1838 Resting in bed 10/05 1710 Resting in bed 10/05 1518 Resting in bed 10/05 1300 Chair 10/05 1221 Chair 10/05 1123 Resting in bed Level of Assistance 10/05 2214 Standby assist, set-up cues, supervision of patient - no hands on 10/05 1920 Standby assist, set-up cues, supervision of patient - no hands on 10/05 183 Contact guard assist, steadying assist 10/05 1710 Contact guard assist, steadying assist 10/05 1518 Contact guard assist, steadying assist 10/05 1123 Contact guard assist, steadying assist Assistive Device 10/05 2214 Gait belt;Walker 10/05 1920 Gait belt;Walker Repositioned 06/30 2215 Turns self 06/30 1921 Turns self 10/05 1838 Turns self [...] regulated 10/05 1300 HOB 30 Heels/Feet 10/05 221 Foot of bed elevated 10/05 1838 Foot of bed elevated 10/05 1710 Foot of bed elevated 10/05 1518 Foot of bed elevated 10/05 1300 Foot of bed elevated Range of Motion 10/05 221 Active;All extremities 10/05 1921 Active;All extremities 10/05 1300 Active Type of Device 10/05 2214 Mechanical compression 10/05 1300 -- (Comment: lovenox) Mechanical Compression Site 10/05 2214 Bilateral Mechanical Compression Type 10/05 2214 IPC/SCD Mechanical Compression Status 10/05 2214 Other (Comment) (Comment: lovenox) , Meds and Admin Active Only All Meds/Most Recent Administrations All Meds/Most Recent Administrations sodium chloride 0.9% bolus 1,000 mL [[id number]] Ordering Provider: Gian Jackson MD Status: Completed [...] RN sodium chloride 0.9% bolus 1,400 mL [[id number]] Ordering Provider: Alysha Ramirez MD Status: Completed [...] dexAMETHasone (DECADRON) 4 mg/mL injection 6 mg [[id number]] Ordering Provider: Alysha Ramirez MD Status: Completed (Past End Date/Time) Ordered On: 10/04/21 171 Starts/Ends: 10/04/21 171 - 10/04/21 1801 Ordered Dose (Remaining/Total): 6 mg (0/1) Route: intravenous Frequency: Once Ordered Rate/Order Duration: -- / 2 Minutes Timestamps Action Dose / Duration Route Other Information 10/04/21 1759 Given 6 mg 2 Minutes intravenous Performed by: Esau Wong RN Scanned Package: 57383-795-06 aspirin enteric coated tablet 81 mg [[id number]] Ordering Provider: Saqib Currie DO Status: Dispensed Ordered On: 10/05/21 0021 Start: 10/05/21 0900 Ordered Dose (Remaining/Total): 81 mg (--/--) Route: oral Frequency: Daily Ordered Rate/Order Duration: -- / -- Admin Instructions: Do not crush, chew, cut, dissolve, open or otherwise manipulate tablet/capsule. 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) Ordered Rate/Order Duration: -- / -- Question Answer Comment I /authorizing provider attest that the patient meets the approved [facility] Use Criteria:: Yes -- Timestamps Action Dose Route Other Information 10/06/21801 Given 2 puff inhalation Performed by: Corine Shay CRTT Scanned Package: 8749-2850-21 folic acid (FOLVITE) tablet 1 mg [[id number]] Ordering Provider: Saqib Currie DO Status: Dispensed Ordered On: 10/05/2120 Start: 10/05/21899 Ordered Dose (Remaining/Total): 1 mg (--/--) Route: oral Frequency: Daily Ordered Rate/Order Duration: -- / -- Timestamps Action Dose Route Other Information 10/05/21829 Given 1 mg oral Performed by: Xena Childress RN Scanned Package: 77818-294-[address] (PROTONIX) extended release tablet 40 mg [[id number]] Ordering Provider: Saqib Currie DO Status: Dispensed Ordered On: 10/05/2120 Start: 10/05/21899 Ordered Dose (Remaining/Total): 40 mg (--/--) Route: oral Frequency: Daily Ordered Rate/Order Duration: -- / -- Admin Instructions: Do not crush, chew, cut, dissolve, open or otherwise manipulate tablet/capsule. Timestamps Action Dose Route Other Information 10/05/21829 Given 40 mg oral Performed by: Xena Childress RN Scanned Package: 27782-459-85 pravastatin (PRAVACHOL) tablet 40 mg [[id number]] Ordering Provider: Saqib Currie DO Status: Dispensed Ordered On: 10/05/2120 Start: 10/05/21899 Ordered Dose (Remaining/Total): 40 mg (--/--) Route: oral Frequency: Daily Ordered Rate/Order Duration: -- / -- Timestamps Action Dose Route Other Information 10/05/21829 Given 40 mg oral Performed by: Xena Childress RN Scanned Package: [id number] thiamine (VITAMIN B1) tablet 100 mg [[id number]] Ordering Provider: Saqib Currie DO Status: Dispensed Ordered On: 10/05/2120 Start: 10/05/21899 Ordered Dose (Remaining/Total): 100 mg (--/--) Route: oral Frequency: Every morning Ordered Rate/Order Duration: -- / -- Timestamps Action Dose Route Other Information 10/05/21829 Given 100 mg oral Performed by: Xena Childress RN Scanned Package: [id number] ondansetron ODT (ZOFRAN-ODT) disintegrating tablet 4 mg [[id number]] Ordering Provider: Saqib Currie DO Status: Verified Ordered On: 10/05/2120 Start: 10/05/2120 Ordered Dose (Remaining/Total): 4 mg (--/--) Route: oral Frequency: Every 6 hours PRN Ordered Rate/Order Duration: -- / -- (No admins scheduled or recorded for this medication) ondansetron (ZOFRAN) injection 4 mg [[id number]] Ordering Provider: Saqib Currie DO Status: Verified Ordered On: 10/05/2120 Start: 10/05/2120 Ordered Dose (Remaining/Total): 4 mg (--/--) Route: intravenous Frequency: Every 6 hours PRN Ordered Rate/Order Duration: -- / 2 Minutes (No admins scheduled or recorded for this medication) enoxaparin (LOVENOX) syringe 40 mg [[id number]] Ordering Provider: Saqib Currie DO Status: Dispensed Ordered On: 10/05/2120 Start: 10/05/212099 Ordered Dose (Remaining/Total): 40 mg (--/--) Route: subcutaneous Frequency: Daily (for enoxaparin) Ordered Rate/Order Duration: -- / -- Timestamps Action Dose Route / Site Other Information 10/05/212214 Given 40 mg subcutaneous Left Lower Abdomen Performed by: Eugene Toro RN Scanned Package: 14649-013-52 acetaminophen (TYLENOL) tablet 650 mg [[id number]] Ordering Provider: Saqib Currie DO Status: Verified Ordered On: 10/05/2120 Start: 10/05/21 002 Ordered Dose (Remaining/Total): 650 mg (--/--) Route: oral Frequency: Every 4 hours PRN Ordered Rate/Order Duration: -- / -- (No admins scheduled or recorded for this medication) remdesivir (VEKLURY) 200 mg/290 mL in sodium chloride 0.9% infusion (premix) 200 mg [[id number]] Ordering Provider: Saqib Currie DO Status: Completed (Past End Date/Time) Ordered On: 10/04/211717 Starts/Ends: 10/04/211722 - 10/04/211909 Ordered Dose (Remaining/Total): 200 mg (0/1) Route: intravenous Frequency: Every 24 hours Ordered Rate/Order Duration: 290 mL/hr / 60 Minutes Admin Instructions: Do not shake or tube. Question Answer Comment [facility] appropriate use criteria for remdesivir are limited [...] Performed by: Esau Wong RN Scanned Package: [address]-7, 9778-6740-05 remdesivir (VEKLURY) 100 mg/270 mL in sodium chloride 0.9% infusion (premix) 100 mg [[id number]] Ordering Provider: Saqib Currie DO Status: Dispensed Ordered On: 10/04/211717 Starts/Ends: 10/05/211703 - 10/09/21 170 Ordered Dose (Remaining/Total): 100 mg (3/4) Route: intravenous Frequency: Every 24 hours Ordered Rate/Order Duration: 270 mL/hr / 60 Minutes Admin Instructions: Do not shake or tube. Note to pharmacy: Double check timing upon verification Question Answer Comment [facility] appropriate use criteria for remdesivir are limited [...] tartrate (LOPRESSOR) immediate release tablet 25 mg [[id number]] Ordering Provider: Elisa Oliva MD Status: Dispensed Ordered On: 10/05/21 1414 Start: 10/05/21 1445 Ordered Dose (Remaining/Total): 25 mg (--/--) Route: oral Frequency: 2 times daily Ordered Rate/Order Duration: -- / -- Timestamps Action Dose Route Other Information 10/05/21 2215 Given 25 mg oral Performed by: Eugene Toro RN Scanned Package: 45279-306-09 * ECIN Note - Wellington Delgado MSW - 10/06/2021 9:13 AM CDT Images from the original note were not included. Patient Information: OT Eval and Treat Last 72 Hours OT Evaluation Row Name 10/05/21 1107 Chart Reviewed Yes -GW Session Type Evaluation [...] EMR references that pt. lives in the [facility]. Pt. has reportedly been declining since his [...] this type exist for this encounter. , BLOCK GREASER Eval and Treat Last 72 Hours BLOCK GREASER Evaluation No documentation. BLOCK GREASER Treatment No documentation. Clinical Swallow Study No documentation. BLOCK GREASER Notes Notes from 10/04/21 through 10/06/21 No notes of this type exist for this encounter. * Plan of Care - Wellington Delgado MSW - 10/06/2021 8:44 AM CDT CM Initial Assessment Interview Note Information Obtained From: Significant other Name: Mariaelena Redman ([phone]) (10/06/21 0914) Admission Source: [facility] Impression: patient is confused, tested COVID (+) on 10/04. Assessment completed with patient's DPOA/Raine. Plan Includes: new placement closer to home in [place], [place] Primary Source of Transportation: Has discharge transport been arranged?: No (10/05/21 1313) Health Insurance Coverage: [employer] MEDICARE/[employer]UE [employer]M MEDICARE PREFERRED PPO Prescription Coverage: [employer] MEDICARE/[employer]UE [employer]M MEDICARE PREFERRED PPO Pharmacy: through facility's preferred pharmacy at this time Primary Care Provider: Jean-Claude Salazar MD Prior to Admission: Primary Caregiver: Facility staff Support System: Spouse/Significant Other, Other (Comment) Support system contact info (name, phone, availablity): Mariaelena Redman ([phone]), facility staff Home Care Services: No Living Arrangements: retirement Type of Residence: retirement Does patient wish to return to care facility?: No, [place] for other [place] Will the care facility allow the patient to return?: Yes, patient can return Facility contact name and number:: [facility] ([phone]) Steps in home? : No steps inside or outside (10/06/21913) SDOH: Transportation Needs: No Transportation Needs ??? [...] with Friends and Family: Never ??? Attends [employer] Services: Never ??? Active Member of Clubs [...] expects to be Discharged to: Intermediate Facility, (10/06/21913) Additional Information: Per facility admissions, patient is SNF at [facility], recently received letter stating that patient's services will no longer be covered by insurance, spoke with patient's spouse regarding Medicaid application. Patient's spouse stated that she is not able to drive to [facility], would like patient to be closer to home in [place], [place]. She also explained that patient will [...] Collaboration with patient, MD, direct care nurse, Auditor/Quality, Nurse Coordinator and other members of the health care team to assure needed interventions completed. 2. Return patient to optimal level of self-care post discharge. 3. Head Miller will follow for Discharge Planning - interventions [...] 10/05/2021 4:01 PM CDT Patient is from [facility]. 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 Per chart, patient is confused. SW left VM for patient's DPOA/Raine Redman ([phone]) to completeassessment, requested she return call. * [...] HIGH-SENSITIVITY 2-HOUR Timed 10/04/2021 3:18 PM CDT [place] [facility] ILL/INJURED PATIENT INIT 30-74 MIN [...] * POCT glucose (10/28/2021 5:55 AM CDT) [facility] Signature Glucose, POC 90 70 - 140 mg/dL DAKSHA [facility] Comment: For Glucose values <35 mg/dl when Hematocrit is >60 mg/dl,the test may not accurately detect significant hypoglycemia,and testing in the Laboratory should be considered if clinically indicated. Blood 10/28/2021 5:55 AM CDT 10/28/2021 5:55 AM CDT us Maikol Acosta MD LAB POCT ORDERABLES - DEV ICE Final Result [facility] [address] Department [place] [address] * POCT glucose (10/27/2021 6:08 AM CDT) Pathologist [facility] Glucose, POC 90 70 - 140 mg/dL [facility] Comment: For Glucose values <35 mg/dl when Hematocrit is >60 mg/dl,the test may not accurately detect significant hypoglycemia,and testing in the Laboratory should be considered if clinically indicated. Blood 10/27/2021 6:08 AM CDT 10/27/2021 6:08 AM CDT Max Cunningham MD LAB POCT ORDERABLES - DEVICE Final Result [facility] [address] Department [place] [address] * eGFR (10/26/2021 6:27 AM CDT) [facility] eGFR 95 mL/min/1. 73 m2 [facility] Comment: Interpretive Data Reference Interval Normal [...] MD LAB BLOOD ORDERABLES Final Re sult [facility] [address] Department [place] [address] * Differential, auto (10/26/2021 6:27 AM CDT) Neutrophil abs 2.6 1.7 - 6.5 K/cumm [facility] Imm gran abs 0.0 0.0 - 0.1 K/cumm [facility] Lymphocyte abs 1.6 0.8 - 3.3 K/cumm [facility] Monocyte abs 0.4 0.2 - 0.8 K/cumm [facility] Eosinophil abs 0.1 0.0 - 0.5 K/cumm [facility] Basophil abs 0.0 0.0 - 0.1 K/cumm [facility] Neutrophil pct 54.5 % [facility] Comment: Interpretive Data Percent cell count reference ranges are not reported, since discordance with absolute values may lead to misinterpretation of CBC data. Current Interpretive Data was last revised on 2017. Imm gran pct 0.2 % [facility] Comment: Interpretive Data Percent cell count reference ranges are not reported, since discordance with absolute values may lead to misinterpretation of CBC data. Current Interpretive Data was last revised on 2017. Lymphocyte pct 33.2 % [facility] Comment: Interpretive Data Percent cell count reference ranges are not reported, since discordance with absolute values may lead to misinterpretation of CBC data. Current Interpretive Data was last revised on 2017. Monocyte pct 8.8 % [facility] Comment: Interpretive Data Percent cell count reference ranges are not reported, since discordance with absolute values may lead to misinterpretation of CBC data. Current Interpretive Data was last revised on 2017. Eosinophil pct 2.5 % [facility] Comment: Interpretive Data Percent cell count reference ranges are not reported, since discordance with absolute values may lead to misinterpretation of CBC data. Current Interpretive Data was last revised on 2017. Basophil pct 0.8 % [facility] Comment: Interpretive Data Percent cell count reference ranges are not reported, since discordance with absolute values may lead to misinterpretation of CBC data. Current Interpretive Data was last revised on 2017. Blood 10/26/2021 6:27 AM CDT 10/26/2021 7:07 AM CDT Max Cunningham MD LAB BLOOD ORDERABLES Final Re sult [facility] [address] Department [place] [address] * (ABNORMAL) CBC with auto differential (10/26/2021 6:27 AM CDT) WBC 4.8 3.8 - 9.9 K/cumm [facility] Hgb 11.0(L) 13.0 - 17.5 g/dL [facility] Hct 33.7(L) 38.9 - 50.3 % [facility] Plt 192 150 - 400 K/cumm [facility] MPV 10.3 9.1 - 12.3 fL [facility] RBC 3.56(L) 4.30 - 5.80 M/cumm [facility] MCV 94.7 81.3 - 96.4 fL [facility] MCH 30.9 27.1 - 33.3 pg [facility] MCHC 32.6 32.3 - 35.7 g/dL [facility] RDW CV 15.0(H) 11.1 - 14.9 % [facility] RDW SD 51.2(H) 35.7 - 48.1 fL [facility] NRBC abs 0.00 0.00 - 0.01 K/cumm [facility] Blood 10/26/2021 6:27 AM CDT 10/26/2021 7:07 AM CDT us Max Cunningham MD LAB BLOOD ORDERABLES Final Re sult Performing Organization Address City/[facility]/ZIP Co de Phone Number [facility] [address] Department [place] [employer] [place] [address] * Magnesium (10/26/2021 6:27 AM CDT) [facility] Magnesium 1.8 1.4 - 2.5 mg/dL [facility] Blood 10/26/2021 6:27 AM CDT 10/26/2021 7:09 AM CDT Max Cunningham MD LAB BLOOD ORDERABLES Final Re sult Performing Organization Address [facility] Co de Phone Number [facility] [address] Department of [employer] [place] [address] * (ABNORMAL) Renal function panel (10/26/2021 6:27 AM CDT) [facility] Sodium 137 135 - 145 mmol/L [facility] Potassium, pl 3.6 3.3 - 4.9 mmol/L [facility] Chloride 102 97 - 110 mmol/L [facility] CO2 27 22 - 32 mmol/L [facility] Anion gap 8 2 - 15 mmol/L [facility] BUN 14 8 - 25 mg/dL [facility] Creatinine 0.80 0.80 - 1.30 mg/dL [facility] Glucose 85 70 - 199 mg/dL [facility] Comment: Interpretive Data Fasting glucose >/= [...] 2017. Calcium 8.9 8.5 - 10.3 mg/dL [facility] Phosphorus, pl 3.3 2.3 - 4.5 mg/dL [facility] Albumin 3.2(L) 3.5 - 5.0 g/dL [facility] Blood 10/26/2021 6:27 AM CDT 10/26/2021 7:09 AM CDT us Max Cunningham MD LAB BLOOD ORDERABLES Final Re sult Performing Organization Address [facility] Co de Phone Number [facility] [address] [facility] [place] [address] * POCT glucose (10/26/2021 6:06 AM CDT) Glucose, POC 87 70 - 140 mg/dL [facility] Comment: For Glucose values <35 mg/dl when Hematocrit is >60 mg/dl,the test may not accurately detect significant hypoglycemia,and testing in the Laboratory should be considered if clinically indicated. Blood 10/26/2021 6:06 AM CDT 10/26/2021 6:06 AM CDT us Max Cunningham MD LAB POCT ORDERABLES - DEVICE Final Result Performing Organization Address [facility] de Phone Number [facility] [address] [facility] [employer] [place] [address] * POCT glucose (10/25/2021 6:08 AM CDT) Glucose, POC 86 70 - 140 mg/dL [facility] Comment: For Glucose values <35 mg/dl when Hematocrit is >60 mg/dl,the test may not accurately detect significant hypoglycemia,and testing in the Laboratory should be considered if clinically indicated. Blood 10/25/2021 6:08 AM CDT 10/25/2021 6:08 AM CDT us Max Cunningham MD LAB POCT ORDERABLES - DEVICE Final Result Performing Organization Address [facility]/State/ZIP Co de Phone Number [facility] [address] Department [place] [address] * POCT glucose (10/24/2021 6:08 AM CDT) Glucose, POC 82 70 - 140 mg/dL [facility] Comment: For Glucose values <35 mg/dl when Hematocrit is >60 mg/dl,the test may not accurately detect significant hypoglycemia,and testing in the Laboratory should be considered if clinically indicated. Blood 10/24/2021 6:08 AM CDT 10/24/2021 6:08 AM CDT Max Cunningham MD LAB POCT ORDERABLES - DEVICE Final Result Performing Organization Address [facility]/State/ZIP Co de Phone Number [facility] [address] Department [place] [address] * XR Pelvis Ortho View (10/23/2021 11:06 [...] * POCT glucose (10/23/2021 6:11 AM CDT) Glucose, POC 84 70 - 140 mg/dL [facility] Comment: For Glucose values <35 mg/dl when Hematocrit is >60 mg/dl,the test may not accurately detect significant hypoglycemia,and testing in the Laboratory should be considered if clinically indicated. Blood 10/23/2021 6:11 AM CDT 10/23/2021 6:11 AM CDT Max Cunningham MD LAB POCT ORDERABLES - DEVICE Final Result Performing Organization Address [facility] Co de Phone Number [facility] [address] [place] [address] * POCT glucose (10/22/2021 6:13 AM CDT) [facility] Glucose, POC 96 70 - 140 mg/dL [facility] Comment: For Glucose values <35 mg/dl when Hematocrit is >60 mg/dl,the test may not accurately detect significant hypoglycemia,and testing in the Laboratory should be considered if clinically indicated. Blood 10/22/2021 6:13 AM CDT 10/22/2021 6:13 AM CDT Max Cunningham MD LAB POCT ORDERABLES - DEVICE Final Result Performing Organization Address [facility] Co de Phone Number [facility] [address] Department of [employer] [place] [address] * POCT glucose (10/21/2021 5:58 AM CDT) Glucose, POC 85 70 - 140 mg/dL [facility] Comment: For Glucose values <35 mg/dl when Hematocrit is >60 mg/dl,the test may not accurately detect significant hypoglycemia,and testing in the Laboratory should be considered if clinically indicated. Blood 10/21/2021 5:58 AM CDT 10/21/2021 5:58 AM CDT Max Cunningham MD LAB POCT ORDERABLES - DEVICE Final Result Performing Organization Address [facility] de Phone Number [facility] [address] [facility] [employer] [place], [place] [id number] * POCT glucose (10/20/2021 5:50 AM CDT) [facility] Glucose, POC 83 70 - 140 mg/dL [facility] Comment: For Glucose values <35 mg/dl when Hematocrit is >60 mg/dl,the test may not accurately detect significant hypoglycemia,and testing in the Laboratory should be considered if clinically indicated. Blood 10/20/2021 5:50 AM CDT 10/20/2021 5:50 AM CDT Jennifer Gao MD LAB POCT ORDERABLES - DEVICE Fin al Result Performing Organization Address [facility] de Phone Number [facility] [address] [facility] [employer] [place] [address] * eGFR (10/19/2021 6:37 AM CDT) Pathologist [facility] eGFR 97 mL/min/1. 73 m2 [facility] Comment: Interpretive Data Reference Interval Normal [...] AM CDT 10/19/2021 6:55 AM CDT Miguel Flores MD LAB BLOOD ORDERABLES nal Result [facility] [address] Department [place] [address] * Differential, auto (10/19/2021 6:37 AM CDT) Neutrophil abs 4.1 1.7 - 6.5 K/cumm [facility] Imm gran abs 0.0 0.0 - 0.1 K/cumm [facility] Lymphocyte abs 1.6 0.8 - 3.3 K/cumm [facility] Monocyte abs 0.4 0.2 - 0.8 K/cumm [facility] Eosinophil abs 0.1 0.0 - 0.5 K/cumm [facility] Basophil abs 0.0 0.0 - 0.1 K/cumm [facility] Neutrophil pct 65.5 % [facility] Comment: Interpretive Data Percent cell count reference ranges are not reported, since discordance with absolute values may lead to misinterpretation of CBC data. Current Interpretive Data was last revised on 2017. Imm gran pct 0.3 % [facility] Comment: Interpretive Data Percent cell count reference ranges are not reported, since discordance with absolute values may lead to misinterpretation of CBC data. Current Interpretive Data was last revised on 2017. Lymphocyte pct 26.1 % [facility] Comment: Interpretive Data Percent cell count reference ranges are not reported, since discordance with absolute values may lead to misinterpretation of CBC data. Current Interpretive Data was last revised on 2017. Monocyte pct 6.0 % [facility] Comment: Interpretive Data Percent cell count reference ranges are not reported, since discordance with absolute values may lead to misinterpretation of CBC data. Current Interpretive Data was last revised on 2017. Eosinophil pct 1.6 % [facility] Comment: Interpretive Data Percent cell count reference ranges are not reported, since discordance with absolute values may lead to misinterpretation of CBC data. Current Interpretive Data was last revised on 2017. Basophil pct 0.5 % [facility] Comment: Interpretive Data Percent cell count reference ranges are not reported, since discordance with absolute values may lead to misinterpretation of CBC data. Current Interpretive Data was last revised on 2017. Blood 10/19/2021 6:37 AM CDT 10/19/2021 6:54 AM CDT Miguel Flores MD LAB BLOOD ORDERABLES Fi nal Result [facility] [address] Department [place] [address] * (ABNORMAL) CBC with auto differential (10/19/2021 6:37 AM CDT) WBC 6.2 3.8 - 9.9 K/cumm [facility] Hgb 10.5(L) 13.0 - 17.5 g/dL [facility] Hct 33.3(L) 38.9 - 50.3 % [facility] Plt 176 150 - 400 K/cumm [facility] MPV 10.0 9.1 - 12.3 fL [facility] RBC 3.45(L) 4.30 - 5.80 M/cumm [facility] MCV 96.5(H) 81.3 - 96.4 fL [facility] MCH 30.4 27.1 - 33.3 pg [facility] MCHC 31.5(L) 32.3 - 35.7 g/dL [facility] RDW CV 14.4 11.1 - 14.9 % [facility] RDW SD 48.2(H) 35.7 - 48.1 fL [facility] NRBC abs 0.00 0.00 - 0.01 K/cumm [facility] Blood 10/19/2021 6:37 AM CDT 10/19/2021 6:54 AM CDT us Miguel Flores MD LAB BLOOD ORDERABLES Fi nal Result [facility] [address] Department [place] [address] * (ABNORMAL) Basic metabolic panel (10/19/2021 6:37 AM CDT) Sodium 140 135 - 145 mmol/L [facility] Potassium, pl 3.8 3.3 - 4.9 mmol/L [facility] Chloride 105 97 - 110 mmol/L [facility] CO2 25 22 - 32 mmol/L [facility] Anion gap 10 2 - 15 mmol/L [facility] BUN 18 8 - 25 mg/dL [facility] Creatinine 0.76(L) 0.80 - 1.30 mg/dL [facility] Glucose 87 70 - 199 mg/dL [facility] Comment: Interpretive Data Fasting glucose >/= [...] 2017. Calcium 8.6 8.5 - 10.3 mg/dL [facility] Blood 10/19/2021 6:37 AM CDT 10/19/2021 6:55 AM CDT Miguel Flores MD LAB BLOOD ORDERABLES Fi nal Result [facility] [address] Department [place] [address] * eGFR (10/18/2021 7:34 AM CDT) eGFR 97 mL/min/1. 73 m2 [facility] Comment: Interpretive Data Reference Interval Normal [...] MD LAB BLOOD ORDERABLES Fi nal Result [facility] [address] Department [place] [address] * Differential, auto (10/18/2021 7:34 AM CDT) Neutrophil abs 3.5 1.7 - 6.5 K/cumm [facility] Imm gran abs 0.0 0.0 - 0.1 K/cumm [facility] Lymphocyte abs 1.6 0.8 - 3.3 K/cumm [facility] Monocyte abs 0.3 0.2 - 0.8 K/cumm [facility] Eosinophil abs 0.1 0.0 - 0.5 K/cumm [facility] Basophil abs 0.0 0.0 - 0.1 K/cumm [facility] Neutrophil pct 62.9 % [facility] Comment: Interpretive Data Percent cell count reference ranges are not reported, since discordance with absolute values may lead to misinterpretation of CBC data. Current Interpretive Data was last revised on 2017. Imm gran pct 0.5 % [facility] Comment: Interpretive Data Percent cell count reference ranges are not reported, since discordance with absolute values may lead to misinterpretation of CBC data. Current Interpretive Data was last revised on 2017. Lymphocyte pct 28.5 % [facility] Comment: Interpretive Data Percent cell count reference ranges are not reported, since discordance with absolute values may lead to misinterpretation of CBC data. Current Interpretive Data was last revised on 2017. Monocyte pct 5.5 % [facility] Comment: Interpretive Data Percent cell count reference ranges are not reported, since discordance with absolute values may lead to misinterpretation of CBC data. Current Interpretive Data was last revised on 2017. Eosinophil pct 2.1 % [facility] Comment: Interpretive Data Percent cell count reference ranges are not reported, since discordance with absolute values may lead to misinterpretation of CBC data. Current Interpretive Data was last revised on 2017. Basophil pct 0.5 % [facility] Comment: Interpretive Data Percent cell count reference ranges are not reported, since discordance with absolute values may lead to misinterpretation of CBC data. Current Interpretive Data was last revised on 2017. Blood 10/18/2021 7:34 AM CDT 10/18/2021 7:58 AM CDT Miguel Flores MD LAB BLOOD ORDERABLES Fi nal Result Performing Organization Address City/[facility] Co de Phone Number [facility] [address] Department [employer] [address] * (ABNORMAL) CBC with auto differential (10/18/2021 7:34 AM CDT) Pathologist [facility] WBC 5.6 3.8 - 9.9 K/cumm [facility] Hgb 10.3(L) 13.0 - 17.5 g/dL [facility] Hct 30.9(L) 38.9 - 50.3 % [facility] Plt 194 150 - 400 K/cumm [facility] MPV 9.8 9.1 - 12.3 fL [facility] RBC 3.31(L) 4.30 - 5.80 M/cumm [facility] MCV 93.4 81.3 - 96.4 fL [facility] MCH 31.1 27.1 - 33.3 pg [facility] MCHC 33.3 32.3 - 35.7 g/dL [facility] RDW CV 13.9 11.1 - 14.9 % [facility] RDW SD 46.2 35.7 - 48.1 fL [facility] NRBC abs 0.00 0.00 - 0.01 K/cumm [facility] Blood 10/18/2021 7:34 AM CDT 10/18/2021 7:58 AM CDT Miguel Flores MD LAB BLOOD ORDERABLES Fi nal Result Performing Organization Address City/[facility]/ZIP Co de Phone Number [facility] [address] Department [employer] [place], [place] [id number] * (ABNORMAL) Basic metabolic panel (10/18/2021 7:34 AM CDT) [facility] Sodium 141 135 - 145 mmol/L [facility] Potassium, pl 4.1 3.3 - 4.9 mmol/L [facility] Chloride 107 97 - 110 mmol/L [facility] CO2 27 22 - 32 mmol/L [facility] Anion gap 7 2 - 15 mmol/L [facility] BUN 14 8 - 25 mg/dL [facility] Creatinine 0.74(L) 0.80 - 1.30 mg/dL [facility] Glucose 88 70 - 199 mg/dL [facility] Comment: Interpretive Data Fasting glucose >/= [...] 2017. Calcium 8.5 8.5 - 10.3 mg/dL [facility] Blood 10/18/2021 7:34 AM CDT 10/18/2021 7:57 AM CDT us Miguel Flores MD LAB BLOOD ORDERABLES Fi nal Result [facility] [address] Department [place] [address] * eGFR (10/16/2021 6:13 AM CDT) [facility] eGFR 100 mL/min/1. 73 m2 [facility] Comment: Interpretive Data Reference Interval Normal [...] 6:13 AM CDT 10/16/2021 6:40 AM CDT us Miguel Flores MD LAB BLOOD ORDERABLES Fi nal Result [facility] [address] Department [place] [address] * Differential, auto (10/16/2021 6:13 AM CDT) Neutrophil abs 4.3 1.7 - 6.5 K/cumm [facility] Imm gran abs 0.0 0.0 - 0.1 K/cumm [facility] Lymphocyte abs 1.8 0.8 - 3.3 K/cumm [facility] Monocyte abs 0.5 0.2 - 0.8 K/cumm [facility] Eosinophil abs 0.1 0.0 - 0.5 K/cumm [facility] Basophil abs 0.0 0.0 - 0.1 K/cumm [facility] Neutrophil pct 63.9 % [facility] Comment: Interpretive Data Percent cell count reference ranges are not reported, since discordance with absolute values may lead to misinterpretation of CBC data. Current Interpretive Data was last revised on 2017. Imm gran pct 0.4 % [facility] Comment: Interpretive Data Percent cell count reference ranges are not reported, since discordance with absolute values may lead to misinterpretation of CBC data. Current Interpretive Data was last revised on 2017. Lymphocyte pct 27.2 % [facility] Comment: Interpretive Data Percent cell count reference ranges are not reported, since discordance with absolute values may lead to misinterpretation of CBC data. Current Interpretive Data was last revised on 2017. Monocyte pct 6.8 % [facility] Comment: Interpretive Data Percent cell count reference ranges are not reported, since discordance with absolute values may lead to misinterpretation of CBC data. Current Interpretive Data was last revised on 2017. Eosinophil pct 1.3 % [facility] Comment: Interpretive Data Percent cell count reference ranges are not reported, since discordance with absolute values may lead to misinterpretation of CBC data. Current Interpretive Data was last revised on 2017. Basophil pct 0.4 % [facility] Comment: Interpretive Data Percent cell count reference ranges are not reported, since discordance with absolute values may lead to misinterpretation of CBC data. Current Interpretive Data was last revised on 2017. Blood 10/16/2021 6:13 AM CDT 10/16/2021 6:40 AM CDT us Miguel Flores MD LAB BLOOD ORDERABLES Fi nal Result [facility] [address] Department [place] [address] * (ABNORMAL) CBC with auto differential (10/16/2021 6:13 AM CDT) WBC 6.7 3.8 - 9.9 K/cumm [facility] Hgb 9.2(L) 13.0 - 17.5 g/dL [facility] Hct 28.0(L) 38.9 - 50.3 % [facility] Plt 173 150 - 400 K/cumm [facility] MPV 10.0 9.1 - 12.3 fL [facility] RBC 2.98(L) 4.30 - 5.80 M/cumm [facility] MCV 94.0 81.3 - 96.4 fL [facility] MCH 30.9 27.1 - 33.3 pg [facility] MCHC 32.9 32.3 - 35.7 g/dL [facility] RDW CV 13.4 11.1 - 14.9 % [facility] RDW SD 45.3 35.7 - 48.1 fL [facility] NRBC abs 0.00 0.00 - 0.01 K/cumm [facility] Blood 10/16/2021 6:13 AM CDT 10/16/2021 6:40 AM CDT us Miguel Flores MD LAB BLOOD ORDERABLES Fi nal Result [facility] [address] Department [place] [address] * (ABNORMAL) Basic metabolic panel (10/16/2021 6:13 AM CDT) Sodium 140 135 - 145 mmol/L [facility] Potassium, pl 3.5 3.3 - 4.9 mmol/L [facility] Chloride 106 97 - 110 mmol/L [facility] CO2 27 22 - 32 mmol/L [facility] Anion gap 7 2 - 15 mmol/L [facility] BUN 15 8 - 25 mg/dL [facility] Creatinine 0.69(L) 0.80 - 1.30 mg/dL [facility] Glucose 88 70 - 199 mg/dL [facility] Comment: Interpretive Data Fasting glucose >/= [...] 2017. Calcium 8.2(L) 8.5 - 10.3 mg/dL [facility] Blood 10/16/2021 6:13 AM CDT 10/16/2021 6:40 AM CDT Miguel Flores MD LAB BLOOD ORDERABLES Fi nal Result [facility] [address] Department [place] [address] * eGFR (10/15/2021 10:30 AM CDT) eGFR 104 mL/min/1. 73 m2 [facility] Comment: Interpretive Data Reference Interval Normal [...] MD LAB BLOOD ORDERABLES Fi nal Result [facility] [address] Department [place] [address] * Differential, auto (10/15/2021 10:30 AM CDT) Neutrophil abs 4.0 1.7 - 6.5 K/cumm [facility] Imm gran abs 0.0 0.0 - 0.1 K/cumm [facility] Lymphocyte abs 1.2 0.8 - 3.3 K/cumm [facility] Monocyte abs 0.4 0.2 - 0.8 K/cumm [facility] Eosinophil abs 0.1 0.0 - 0.5 K/cumm [facility] Basophil abs 0.0 0.0 - 0.1 K/cumm [facility] Neutrophil pct 70.6 % [facility] Comment: Interpretive Data Percent cell count reference ranges are not reported, since discordance with absolute values may lead to misinterpretation of CBC data. Current Interpretive Data was last revised on 2017. Imm gran pct 0.5 % [facility] Comment: Interpretive Data Percent cell count reference ranges are not reported, since discordance with absolute values may lead to misinterpretation of CBC data. Current Interpretive Data was last revised on 2017. Lymphocyte pct 20.5 % [facility] Comment: Interpretive Data Percent cell count reference ranges are not reported, since discordance with absolute values may lead to misinterpretation of CBC data. Current Interpretive Data was last revised on 2017. Monocyte pct 6.4 % [facility] Comment: Interpretive Data Percent cell count reference ranges are not reported, since discordance with absolute values may lead to misinterpretation of CBC data. Current Interpretive Data was last revised on 2017. Eosinophil pct 1.6 % [facility] Comment: Interpretive Data Percent cell count reference ranges are not reported, since discordance with absolute values may lead to misinterpretation of CBC data. Current Interpretive Data was last revised on 2017. Basophil pct 0.4 % [facility] Comment: Interpretive Data Percent cell count reference ranges are not reported, since discordance with absolute values may lead to misinterpretation of CBC data. Current Interpretive Data was last revised on 2017. Blood 10/15/2021 10:3 0 AM CDT 10/15/2021 10:34 AM CDT Miguel Flores MD LAB BLOOD ORDERABLES Fi nal Result Performing Organization Address City/[facility]/ZIP Co de Phone Number [facility] [address] [employer] [place], [place] [id number] * (ABNORMAL) CBC with auto differential (10/15/2021 10:30 AM CDT) [facility] WBC 5.7 3.8 - 9.9 K/cumm [facility] Hgb 10.4(L) 13.0 - 17.5 g/dL [facility] Hct 30.5(L) 38.9 - 50.3 % [facility] Plt 167 150 - 400 K/cumm [facility] MPV 10.2 9.1 - 12.3 fL [facility] RBC 3.30(L) 4.30 - 5.80 M/cumm [facility] MCV 92.4 81.3 - 96.4 fL [facility] MCH 31.5 27.1 - 33.3 pg [facility] MCHC 34.1 32.3 - 35.7 g/dL [facility] RDW CV 13.4 11.1 - 14.9 % [facility] RDW SD 45.0 35.7 - 48.1 fL [facility] NRBC abs 0.00 0.00 - 0.01 K/cumm [facility] Blood 10/15/2021 10:3 0 AM CDT 10/15/2021 10:34 AM CDT Miguel Flores MD LAB BLOOD ORDERABLES Fi nal Result Performing Organization Address [facility]/ZIP Co de Phone Number [facility] [address] Department of [employer] [place], [place] [id number] * (ABNORMAL) Basic metabolic panel (10/15/2021 10:30 AM CDT) [facility] Sodium 139 135 - 145 mmol/L [facility] Potassium, pl 3.8 3.3 - 4.9 mmol/L [facility] Chloride 105 97 - 110 mmol/L [facility] CO2 26 22 - 32 mmol/L [facility] Anion gap 8 2 - 15 mmol/L [facility] BUN 11 8 - 25 mg/dL [facility] Creatinine 0.59(L) 0.80 - 1.30 mg/dL [facility] Glucose 142 70 - 199 mg/dL [facility] Comment: Interpretive Data Fasting glucose >/= [...] 2017. Calcium 8.4(L) 8.5 - 10.3 mg/dL [facility] Blood 10/15/2021 10:3 0 AM CDT 10/15/2021 10:34 AM CDT us Miguel Flores MD LAB BLOOD ORDERABLES Fi nal Result [facility] [address] Department [place] [address] * eGFR (10/14/2021 7:00 AM CDT) [facility] eGFR 103 mL/min/1. 73 m2 [facility] Comment: Interpretive Data Reference Interval Normal [...] 7:00 AM CDT 10/14/2021 7:19 AM CDT us Miguel Flores MD LAB BLOOD ORDERABLES Fi nal Result [facility] [address] Department [place] [address] * Differential, auto (10/14/2021 7:00 AM CDT) Neutrophil abs 2.4 1.7 - 6.5 K/cumm [facility] Imm gran abs 0.0 0.0 - 0.1 K/cumm [facility] Lymphocyte abs 1.3 0.8 - 3.3 K/cumm [facility] Monocyte abs 0.5 0.2 - 0.8 K/cumm [facility] Eosinophil abs 0.1 0.0 - 0.5 K/cumm [facility] Basophil abs 0.0 0.0 - 0.1 K/cumm [facility] Neutrophil pct 55.5 % [facility] Comment: Interpretive Data Percent cell count reference ranges are not reported, since discordance with absolute values may lead to misinterpretation of CBC data. Current Interpretive Data was last revised on 2017. Imm gran pct 0.9 % [facility] Comment: Interpretive Data Percent cell count reference ranges are not reported, since discordance with absolute values may lead to misinterpretation of CBC data. Current Interpretive Data was last revised on 2017. Lymphocyte pct 30.0 % [facility] Comment: Interpretive Data Percent cell count reference ranges are not reported, since discordance with absolute values may lead to misinterpretation of CBC data. Current Interpretive Data was last revised on 2017. Monocyte pct 10.8 % [facility] Comment: Interpretive Data Percent cell count reference ranges are not reported, since discordance with absolute values may lead to misinterpretation of CBC data. Current Interpretive Data was last revised on 2017. Eosinophil pct 2.3 % [facility] Comment: Interpretive Data Percent cell count reference ranges are not reported, since discordance with absolute values may lead to misinterpretation of CBC data. Current Interpretive Data was last revised on 2017. Basophil pct 0.5 % [facility] Comment: Interpretive Data Percent cell count reference ranges are not reported, since discordance with absolute values may lead to misinterpretation of CBC data. Current Interpretive Data was last revised on 2017. Blood 10/14/2021 7:00 AM CDT 10/14/2021 7:19 AM CDT us Miguel Flores MD LAB BLOOD ORDERABLES Fi nal Result [facility] [address] Department [place] [address] * (ABNORMAL) CBC with auto differential (10/14/2021 7:00 AM CDT) WBC 4.4 3.8 - 9.9 K/cumm [facility] Hgb 9.9(L) 13.0 - 17.5 g/dL [facility] Hct 29.8(L) 38.9 - 50.3 % [facility] Plt 159 150 - 400 K/cumm [facility] MPV 10.2 9.1 - 12.3 fL [facility] RBC 3.19(L) 4.30 - 5.80 M/cumm [facility] MCV 93.4 81.3 - 96.4 fL [facility] MCH 31.0 27.1 - 33.3 pg [facility] MCHC 33.2 32.3 - 35.7 g/dL [facility] RDW CV 13.2 11.1 - 14.9 % [facility] RDW SD 45.1 35.7 - 48.1 fL [facility] NRBC abs 0.00 0.00 - 0.01 K/cumm [facility] Blood 10/14/2021 7:00 AM CDT 10/14/2021 7:19 AM CDT us Miguel Flores MD LAB BLOOD ORDERABLES Fi nal Result [facility] [address] Department [place] [address] * (ABNORMAL) Basic metabolic panel (10/14/2021 7:00 AM CDT) Sodium 140 135 - 145 mmol/L [facility] Potassium, pl 3.4 3.3 - 4.9 mmol/L [facility] Chloride 108 97 - 110 mmol/L [facility] CO2 25 22 - 32 mmol/L [facility] Anion gap 7 2 - 15 mmol/L [facility] BUN 11 8 - 25 mg/dL [facility] Creatinine 0.62(L) 0.80 - 1.30 mg/dL [facility] Glucose 85 70 - 199 mg/dL [facility] Comment: Interpretive Data Fasting glucose >/= [...] 2017. Calcium 8.2(L) 8.5 - 10.3 mg/dL [facility] Blood 10/14/2021 7:00 AM CDT 10/14/2021 7:19 AM CDT Miguel Flores MD LAB BLOOD ORDERABLES Fi nal Result Performing Organization Address [facility] Co de Phone Number [facility] [address] [facility] [employer] [place] [address] * POCT glucose (10/14/2021 6:41 AM CDT) Glucose, POC 83 70 - 140 mg/dL [facility] Comment: For Glucose values <35 mg/dl when Hematocrit is >60 mg/dl,the test may not accurately detect significant hypoglycemia,and testing in the Laboratory should be considered if clinically indicated. Blood 10/14/2021 6:41 AM CDT 10/14/2021 6:41 AM CDT Saqib Currie DO LAB POCT ORDERABLES - D EVICE Final Result Performing Organization Address [facility] de Phone Number [facility] [address] [facility] [employer] [place] [address] * POCT glucose (10/13/2021 6:37 AM CDT) Glucose, POC 84 70 - 140 mg/dL [facility] Comment: For Glucose values <35 mg/dl when Hematocrit is >60 mg/dl,the test may not accurately detect significant hypoglycemia,and testing in the Laboratory should be considered if clinically indicated. Blood 10/13/2021 6:37 AM CDT 10/13/2021 6:37 AM CDT Saqib Currie DO LAB POCT ORDERABLES - D EVICE Final Result Performing Organization Address [facility]/ZIP Co de Phone Number [facility] [address] Department [place] [address] * eGFR (10/13/2021 5:12 AM CDT) [facility] eGFR 104 mL/min/1. 73 m2 [facility] Comment: Interpretive Data Reference Interval [...] LAB BLOOD ORDERABLES Fi nal Result [facility] [address] Department [place] [address] * Differential, auto (10/13/2021 5:12 AM CDT) [facility] Neutrophil abs 2.7 1.7 - 6.5 K/cumm [facility] Imm gran abs 0.0 0.0 - 0.1 K/cumm [facility] Lymphocyte abs 1.1 0.8 - 3.3 K/cumm [facility] Monocyte abs 0.4 0.2 - 0.8 K/cumm [facility] Eosinophil abs 0.1 0.0 - 0.5 K/cumm [facility] Basophil abs 0.0 0.0 - 0.1 K/cumm [facility] Neutrophil pct 61.6 % [facility] Comment: Interpretive Data Percent cell count reference ranges are not reported, since discordance with absolute values may lead to misinterpretation of CBC data. Current Interpretive Data was last revised on 2017. Imm gran pct 0.5 % [facility] Comment: Interpretive Data Percent cell count reference ranges are not reported, since discordance with absolute values may lead to misinterpretation of CBC data. Current Interpretive Data was last revised on 2017. Lymphocyte pct 25.1 % [facility] Comment: Interpretive Data Percent cell count reference ranges are not reported, since discordance with absolute values may lead to misinterpretation of CBC data. Current Interpretive Data was last revised on 2017. Monocyte pct 10.2 % [facility] Comment: Interpretive Data Percent cell count reference ranges are not reported, since discordance with absolute values may lead to misinterpretation of CBC data. Current Interpretive Data was last revised on 2017. Eosinophil pct 2.1 % [facility] Comment: Interpretive Data Percent cell count reference ranges are not reported, since discordance with absolute values may lead to misinterpretation of CBC data. Current Interpretive Data was last revised on 2017. Basophil pct 0.5 % [facility] Comment: Interpretive Data Percent cell count reference ranges are not reported, since discordance with absolute values may lead to misinterpretation of CBC data. Current Interpretive Data was last revised on 2017. Blood 10/13/2021 5:12 AM CDT 10/13/2021 6:36 AM CDT us Miguel Flores MD LAB BLOOD ORDERABLES Fi nal Result [facility] [address] Department [place] [address] * (ABNORMAL) CBC with auto differential (10/13/2021 5:12 AM CDT) [facility] WBC 4.3 3.8 - 9.9 K/cumm [facility] Hgb 9.3(L) 13.0 - 17.5 g/dL [facility] Hct 27.7(L) 38.9 - 50.3 % [facility] Plt 136(L) 150 - 400 K/cumm [facility] MPV 10.3 9.1 - 12.3 fL [facility] RBC 3.00(L) 4.30 - 5.80 M/cumm [facility] MCV 92.3 81.3 - 96.4 fL [facility] MCH 31.0 27.1 - 33.3 pg [facility] MCHC 33.6 32.3 - 35.7 g/dL [facility] RDW CV 13.4 11.1 - 14.9 % [facility] RDW SD 45.7 35.7 - 48.1 fL [facility] NRBC abs 0.00 0.00 - 0.01 K/cumm [facility] Blood 10/13/2021 5:12 AM CDT 10/13/2021 6:36 AM CDT Miguel Flores MD LAB BLOOD ORDERABLES Fi nal Result [facility] [address] Department of [employer] [place] [address] * (ABNORMAL) Basic metabolic panel (10/13/2021 5:12 AM CDT) [facility] Sodium 138 135 - 145 mmol/L [facility] Potassium, pl 3.3 3.3 - 4.9 mmol/L [facility] Chloride 105 97 - 110 mmol/L [facility] CO2 25 22 - 32 mmol/L [facility] Anion gap 8 2 - 15 mmol/L [facility] BUN 10 8 - 25 mg/dL [facility] Creatinine 0.60(L) 0.80 - 1.30 mg/dL [facility] Glucose 82 70 - 199 mg/dL [facility] Comment: Interpretive Data Fasting glucose >/= [...] 2017. Calcium 8.1(L) 8.5 - 10.3 mg/dL [facility] Blood 10/13/2021 5:12 AM CDT 10/13/2021 6:37 AM CDT Miguel Flores MD LAB BLOOD ORDERABLES Fi nal Result [facility] [address] Department [place] [address] * eGFR (10/12/2021 6:41 AM CDT) eGFR 101 mL/min/1. 73 m2 [facility] Comment: Interpretive Data Reference Interval Normal [...] MD LAB BLOOD ORDERABLES Fi nal Result [facility] [address] Department [place] [address] * Differential, auto (10/12/2021 6:41 AM CDT) Neutrophil abs 3.0 1.7 - 6.5 K/cumm [facility] Imm gran abs 0.0 0.0 - 0.1 K/cumm [facility] Lymphocyte abs 1.0 0.8 - 3.3 K/cumm [facility] Monocyte abs 0.4 0.2 - 0.8 K/cumm [facility] Eosinophil abs 0.1 0.0 - 0.5 K/cumm [facility] Basophil abs 0.0 0.0 - 0.1 K/cumm [facility] Neutrophil pct 66.2 % [facility] Comment: Interpretive Data Percent cell count reference ranges are not reported, since discordance with absolute values may lead to misinterpretation of CBC data. Current Interpretive Data was last revised on 2017. Imm gran pct 0.2 % [facility] Comment: Interpretive Data Percent cell count reference ranges are not reported, since discordance with absolute values may lead to misinterpretation of CBC data. Current Interpretive Data was last revised on 2017. Lymphocyte pct 22.7 % [facility] Comment: Interpretive Data Percent cell count reference ranges are not reported, since discordance with absolute values may lead to misinterpretation of CBC data. Current Interpretive Data was last revised on 2017. Monocyte pct 8.1 % [facility] Comment: Interpretive Data Percent cell count reference ranges are not reported, since discordance with absolute values may lead to misinterpretation of CBC data. Current Interpretive Data was last revised on 2017. Eosinophil pct 2.6 % [facility] Comment: Interpretive Data Percent cell count reference ranges are not reported, since discordance with absolute values may lead to misinterpretation of CBC data. Current Interpretive Data was last revised on 2017. Basophil pct 0.2 % [facility] Comment: Interpretive Data Percent cell count reference ranges are not reported, since discordance with absolute values may lead to misinterpretation of CBC data. Current Interpretive Data was last revised on 2017. Blood 10/12/2021 6:41 AM CDT 10/12/2021 7:29 AM CDT Miguel Flores MD LAB BLOOD ORDERABLES nal Result [facility] [address] Department [place] [address] * (ABNORMAL) CBC with auto differential (10/12/2021 6:41 AM CDT) WBC 4.6 3.8 - 9.9 K/cumm [facility] Hgb 9.4(L) 13.0 - 17.5 g/dL [facility] Hct 28.4(L) 38.9 - 50.3 % [facility] Plt 124(L) 150 - 400 K/cumm [facility] MPV 11.3 9.1 - 12.3 fL [facility] RBC 3.01(L) 4.30 - 5.80 M/cumm [facility] MCV 94.4 81.3 - 96.4 fL [facility] MCH 31.2 27.1 - 33.3 pg [facility] MCHC 33.1 32.3 - 35.7 g/dL [facility] RDW CV 13.4 11.1 - 14.9 % [facility] RDW SD 46.4 35.7 - 48.1 fL [facility] NRBC abs 0.00 0.00 - 0.01 K/cumm [facility] Blood 10/12/2021 6:41 AM CDT 10/12/2021 7:29 AM CDT Miguel Flores MD LAB BLOOD ORDERABLES Fi nal Result [facility] [address] Department [place] [address] * (ABNORMAL) Basic metabolic panel (10/12/2021 6:41 AM CDT) Sodium 137 135 - 145 mmol/L [facility] Potassium, pl 3.4 3.3 - 4.9 mmol/L [facility] Chloride 103 97 - 110 mmol/L [facility] CO2 26 22 - 32 mmol/L [facility] Anion gap 8 2 - 15 mmol/L [facility] BUN 14 8 - 25 mg/dL [facility] Creatinine 0.65(L) 0.80 - 1.30 mg/dL [facility] Glucose 90 70 - 199 mg/dL [facility] Comment: Interpretive Data Fasting glucose >/= [...] 2017. Calcium 8.2(L) 8.5 - 10.3 mg/dL [facility] Blood 10/12/2021 6:41 AM CDT 10/12/2021 7:29 AM CDT Miguel Flores MD LAB BLOOD ORDERABLES Fi nal Result Performing Organization Address [facility] de Phone Number [facility] [address] Department [employer] [place], [place] [address] * POCT glucose (10/12/2021 6:03 AM CDT) Pathologist [facility] Glucose, POC 89 70 - 140 mg/dL [facility] Comment: For Glucose values <35 mg/dl when Hematocrit is >60 mg/dl,the test may not accurately detect significant hypoglycemia,and testing in the Laboratory should be considered if clinically indicated. Blood 10/12/2021 6:03 AM CDT 10/12/2021 6:03 AM CDT Saqib Currie DO LAB POCT ORDERABLES - D EVICE Final Result Performing Organization Address [facility] de Phone Number [facility] [address] Department of [employer] [place] [address] * eGFR (10/11/2021 6:01 AM CDT) Pathologist [facility] eGFR 100 mL/min/1. 73 m2 [facility] Comment: Interpretive Data Reference Interval Normal [...] data was last reviewed 2021. Blood 10/11/2021 6:0 1 AM CDT 10/11/2021 6:17 AM CDT us Miguel Flores MD LAB BLOOD ORDERABLES Fi nal Result [facility] [address] Department [place] [address] * Differential, auto (10/11/2021 6:01 AM CDT) Neutrophil abs 3.5 1.7 - 6.5 K/cumm [facility] Imm gran abs 0.0 0.0 - 0.1 K/cumm [facility] Lymphocyte abs 1.0 0.8 - 3.3 K/cumm [facility] Monocyte abs 0.4 0.2 - 0.8 K/cumm [facility] Eosinophil abs 0.1 0.0 - 0.5 K/cumm [facility] Basophil abs 0.0 0.0 - 0.1 K/cumm [facility] Neutrophil pct 69.1 % [facility] Comment: Interpretive Data Percent cell count reference ranges are not reported, since discordance with absolute values may lead to misinterpretation of CBC data. Current Interpretive Data was last revised on 2017. Imm gran pct 0.2 % [facility] Comment: Interpretive Data Percent cell count reference ranges are not reported, since discordance with absolute values may lead to misinterpretation of CBC data. Current Interpretive Data was last revised on 2017. Lymphocyte pct 20.4 % [facility] Comment: Interpretive Data Percent cell count reference ranges are not reported, since discordance with absolute values may lead to misinterpretation of CBC data. Current Interpretive Data was last revised on 2017. Monocyte pct 7.9 % [facility] Comment: Interpretive Data Percent cell count reference ranges are not reported, since discordance with absolute values may lead to misinterpretation of CBC data. Current Interpretive Data was last revised on 2017. Eosinophil pct 2.2 % [facility] Comment: Interpretive Data Percent cell count reference ranges are not reported, since discordance with absolute values may lead to misinterpretation of CBC data. Current Interpretive Data was last revised on 2017. Basophil pct 0.2 % [facility] Comment: Interpretive Data Percent cell count reference ranges are not reported, since discordance with absolute values may lead to misinterpretation of CBC data. Current Interpretive Data was last revised on 2017. Blood 10/11/2021 6:01 AM CDT 10/11/2021 6:20 AM CDT us Miguel Flores MD LAB BLOOD ORDERABLES Fi nal Result [facility] [address] Department [place] [address] * (ABNORMAL) CBC with auto differential (10/11/2021 6:01 AM CDT) WBC 5.1 3.8 - 9.9 K/cumm [facility] Hgb 9.4(L) 13.0 - 17.5 g/dL [facility] Hct 28.7(L) 38.9 - 50.3 % [facility] Plt 102(L) 150 - 400 K/cumm [facility] MPV 11.1 9.1 - 12.3 fL [facility] RBC 3.04(L) 4.30 - 5.80 M/cumm [facility] MCV 94.4 81.3 - 96.4 fL [facility] MCH 30.9 27.1 - 33.3 pg [facility] MCHC 32.8 32.3 - 35.7 g/dL [facility] RDW CV 13.3 11.1 - 14.9 % [facility] RDW SD 46.6 35.7 - 48.1 fL [facility] NRBC abs 0.00 0.00 - 0.01 K/cumm [facility] Blood 10/11/2021 6:01 AM CDT 10/11/2021 6:20 AM CDT Miguel Flores MD LAB BLOOD ORDERABLES Fi nal Result [facility] [address] [place] [address] * (ABNORMAL) Basic metabolic panel (10/11/2021 6:01 AM CDT) [facility] Sodium 137 135 - 145 mmol/L [facility] Potassium, pl 3.6 3.3 - 4.9 mmol/L [facility] Chloride 106 97 - 110 mmol/L [facility] CO2 25 22 - 32 mmol/L [facility] Anion gap 6 2 - 15 mmol/L [facility] BUN 15 8 - 25 mg/dL [facility] Creatinine 0.67(L) 0.80 - 1.30 mg/dL [facility] Glucose 97 70 - 199 mg/dL [facility] Comment: Interpretive Data Fasting glucose >/= [...] 2017. Calcium 8.1(L) 8.5 - 10.3 mg/dL [facility] Blood 10/11/2021 6:01 AM CDT 10/11/2021 6:17 AM CDT Miguel Flores MD LAB BLOOD ORDERABLES Fi nal Result Performing Organization Address City/[facility]/ZIP Co de Phone Number [facility] [address] Department [employer] [address] * eGFR (10/10/2021 6:49 AM CDT) eGFR 97 mL/min/1. 73 m2 [facility] Comment: Interpretive Data Reference Interval Normal [...] MD LAB BLOOD ORDERABLES Fi nal Result [facility] [address] Department [place] [address] * (ABNORMAL) Differential, auto (10/10/2021 6:49 AM CDT) Neutrophil abs 6.0 1.7 - 6.5 K/cumm [facility] Imm gran abs 0.0 0.0 - 0.1 K/cumm [facility] Lymphocyte abs 0.6(L) 0.8 - 3.3 K/cumm [facility] Monocyte abs 0.4 0.2 - 0.8 K/cumm [facility] Eosinophil abs 0.0 0.0 - 0.5 K/cumm [facility] Basophil abs 0.0 0.0 - 0.1 K/cumm [facility] Neutrophil pct 84.2 % [facility] Comment: Interpretive Data Percent cell count reference ranges are not reported, since discordance with absolute values may lead to misinterpretation of CBC data. Current Interpretive Data was last revised on 2017. Imm gran pct 0.3 % [facility] Comment: Interpretive Data Percent cell count reference ranges are not reported, since discordance with absolute values may lead to misinterpretation of CBC data. Current Interpretive Data was last revised on 2017. Lymphocyte pct 8.9 % [facility] Comment: Interpretive Data Percent cell count reference ranges are not reported, since discordance with absolute values may lead to misinterpretation of CBC data. Current Interpretive Data was last revised on 2017. Monocyte pct 5.9 % [facility] Comment: Interpretive Data Percent cell count reference ranges are not reported, since discordance with absolute values may lead to misinterpretation of CBC data. Current Interpretive Data was last revised on 2017. Eosinophil pct 0.6 % [facility] Comment: Interpretive Data Percent cell count reference ranges are not reported, since discordance with absolute values may lead to misinterpretation of CBC data. Current Interpretive Data was last revised on 2017. Basophil pct 0.1 % [facility] Comment: Interpretive Data Percent cell count reference ranges are not reported, since discordance with absolute values may lead to misinterpretation of CBC data. Current Interpretive Data was last revised on 2017. Blood 10/10/2021 6:49 AM CDT 10/10/2021 7:09 AM CDT us Miguel Flores MD LAB BLOOD ORDERABLES Fi nal Result [facility] [address] Department of [employer] [place] [address] * (ABNORMAL) CBC with auto differential (10/10/2021 6:49 AM CDT) [facility] WBC 7.2 3.8 - 9.9 K/cumm [facility] Hgb 10.1(L) 13.0 - 17.5 g/dL [facility] Hct 30.9(L) 38.9 - 50.3 % [facility] Plt 105(L) 150 - 400 K/cumm [facility] Comment:Consistent with prev ious result. MPV 11.4 9.1 - 12.3 fL [facility] RBC 3.23(L) 4.30 - 5.80 M/cumm [facility] MCV 95.7 81.3 - 96.4 fL [facility] MCH 31.3 27.1 - 33.3 pg [facility] MCHC 32.7 32.3 - 35.7 g/dL [facility] RDW CV 13.4 11.1 - 14.9 % [facility] RDW SD 47.5 35.7 - 48.1 fL [facility] NRBC abs 0.00 0.00 - 0.01 K/cumm [facility] Blood 10/10/2021 6:49 AM CDT 10/10/2021 7:09 AM CDT us Miguel Flores MD LAB BLOOD ORDERABLES Fi nal Result [facility] [address] Department [place] [address] * (ABNORMAL) Basic metabolic panel (10/10/2021 6:49 AM CDT) [facility] Sodium 136 135 - 145 mmol/L [facility] Potassium, pl 3.8 3.3 - 4.9 mmol/L [facility] Chloride 103 97 - 110 mmol/L [facility] CO2 23 22 - 32 mmol/L [facility] Anion gap 10 2 - 15 mmol/L [facility] BUN 17 8 - 25 mg/dL [facility] Creatinine 0.75(L) 0.80 - 1.30 mg/dL [facility] Glucose 97 70 - 199 mg/dL [facility] Comment: Interpretive Data Fasting glucose >/= [...] 2017. Calcium 8.1(L) 8.5 - 10.3 mg/dL [facility] Blood 10/10/2021 6:49 AM CDT 10/10/2021 7:10 AM CDT us iMguel Flores MD LAB BLOOD ORDERABLES Fi nal Result Performing Organization Address [facility] Co de Phone Number [facility] [address] Department [employer] [address] * POCT glucose (10/10/2021 6:40 AM CDT) Glucose, POC 94 70 - 140 mg/dL [facility] Comment: For Glucose values <35 mg/dl when Hematocrit is >60 mg/dl,the test may not accurately detect significant hypoglycemia,and testing in the Laboratory should be considered if clinically indicated. Blood 10/10/2021 6:40 AM CDT 10/10/2021 6:40 AM CDT us Elisa Oliva MD LAB POCT ORDERABLES - DEVICE Fi nal Result Performing Organization Address [facility]/ZIP Co de Phone Number [facility] [address] Department of [employer] [place], [place] [id number] * POCT glucose (10/09/2021 6:25 AM CDT) Glucose, POC 106 70 - 140 mg/dL [facility] Comment: For Glucose values <35 mg/dl when Hematocrit is >60 mg/dl,the test may not accurately detect significant hypoglycemia,and testing in the Laboratory should be considered if clinically indicated. Blood 10/09/2021 6:25 AM CDT 10/09/2021 6:25 AM CDT us Elisa Oliva MD LAB POCT ORDERABLES - DEVICE Fi nal Result [facility] [address] Department [place] [address] * eGFR (10/09/2021 6:15 AM CDT) Pathologist [facility] eGFR 97 mL/min/1. 73 m2 [facility] Comment: Interpretive Data Reference Interval Normal [...] MD LAB BLOOD ORDERABLES Fi nal Result [facility] [address] Department [place] [address] * Differential, auto (10/09/2021 6:15 AM CDT) Neutrophil abs 3.6 1.7 - 6.5 K/cumm [facility] Imm gran abs 0.0 0.0 - 0.1 K/cumm [facility] Lymphocyte abs 0.8 0.8 - 3.3 K/cumm [facility] Monocyte abs 0.3 0.2 - 0.8 K/cumm [facility] Eosinophil abs 0.0 0.0 - 0.5 K/cumm [facility] Basophil abs 0.0 0.0 - 0.1 K/cumm [facility] Neutrophil pct 76.3 % [facility] Comment: Interpretive Data Percent cell count reference ranges are not reported, since discordance with absolute values may lead to misinterpretation of CBC data. Current Interpretive Data was last revised on 2017. Imm gran pct 0.2 % [facility] Comment: Interpretive Data Percent cell count reference ranges are not reported, since discordance with absolute values may lead to misinterpretation of CBC data. Current Interpretive Data was last revised on 2017. Lymphocyte pct 17.6 % [facility] Comment: Interpretive Data Percent cell count reference ranges are not reported, since discordance with absolute values may lead to misinterpretation of CBC data. Current Interpretive Data was last revised on 2017. Monocyte pct 5.5 % [facility] Comment: Interpretive Data Percent cell count reference ranges are not reported, since discordance with absolute values may lead to misinterpretation of CBC data. Current Interpretive Data was last revised on 2017. Eosinophil pct 0.4 % [facility] Comment: Interpretive Data Percent cell count reference ranges are not reported, since discordance with absolute values may lead to misinterpretation of CBC data. Current Interpretive Data was last revised on 2017. Basophil pct 0.0 % [facility] Comment: Interpretive Data Percent cell count reference ranges are not reported, since discordance with absolute values may lead to misinterpretation of CBC data. Current Interpretive Data was last revised on 2017. Blood 10/09/2021 6:15 AM CDT 10/09/2021 6:38 AM CDT Miguel Flores MD LAB BLOOD ORDERABLES Fi nal Result Performing Organization Address [facility]/ZIP Co de Phone Number [facility] [address] Department [employer] [address] * (ABNORMAL) CBC with auto differential (10/09/2021 6:15 AM CDT) WBC 4.8 3.8 - 9.9 K/cumm [facility] Hgb 9.8(L) 13.0 - 17.5 g/dL [facility] Hct 29.7(L) 38.9 - 50.3 % [facility] Plt 99(L) 150 - 400 K/cumm [facility] MPV 11.2 9.1 - 12.3 fL [facility] RBC 3.18(L) 4.30 - 5.80 M/cumm [facility] MCV 93.4 81.3 - 96.4 fL [facility] MCH 30.8 27.1 - 33.3 pg [facility] MCHC 33.0 32.3 - 35.7 g/dL [facility] RDW CV 13.3 11.1 - 14.9 % [facility] RDW SD 45.9 35.7 - 48.1 fL [facility] NRBC abs 0.00 0.00 - 0.01 K/cumm [facility] Blood 10/09/2021 6:15 AM CDT 10/09/2021 6:38 AM CDT Miguel Flores MD LAB BLOOD ORDERABLES Fi nal Result Performing Organization Address City/[facility]/ZIP Co de Phone Number [facility] [address] Department [place] [address] * (ABNORMAL) Basic metabolic panel (10/09/2021 6:15 AM CDT) Sodium 138 135 - 145 mmol/L [facility] Potassium, pl 3.8 3.3 - 4.9 mmol/L [facility] Chloride 105 97 - 110 mmol/L [facility] CO2 25 22 - 32 mmol/L [facility] Anion gap 8 2 - 15 mmol/L [facility] BUN 13 8 - 25 mg/dL [facility] Creatinine 0.75(L) 0.80 - 1.30 mg/dL [facility] Glucose 115 70 - 199 mg/dL [facility] Comment: Interpretive Data Fasting glucose >/= [...] 2017. Calcium 8.2(L) 8.5 - 10.3 mg/dL [facility] Blood 10/09/2021 6:15 AM CDT 10/09/2021 6:38 AM CDT Miguel Flores MD LAB BLOOD ORDERABLES nal Result [facility] [address] Department [place] [address] * XR Hip Right 2 or 3 [...] 1 Hour (10/08/2021 11:02 AM CDT) Narrative [facility] - 10/08/2021 11:02 AM CDT The images from this study are not interpreted by Radiology. ??Please refer to the physician's procedure / OR operative note. Miguel Flores MD IMG FLUOROSCOPY PROCEDU RES Final Result [facility] * Protime-INR (10/08/2021 3:37 AM CDT) PT 12.9 9.2 - 13.5 sec [facility] INR 1.2 0.9 - 1.2 [facility] Comment: Interpretive data Oral anticoagulant therapeutic ranges: Venous thromboembolism prophylaxis or treatment: 2.0-3.0 CARDIOLOGY Standard range: 2.0-3.0 High-intensity range: 2.5-3.5 Refer to indication-specific guidelines for appropriate target ranges for prosthetic heart valve replacement. Current interpretive data was last revised on 2019. Blood 10/08/2021 3:37 AM CDT 10/08/2021 3:48 AM CDT us Elisa Oliva MD LAB BLOOD ORDERABLES Final Resu lt [facility] [address] Department [place] [address] * Differential, auto (10/08/2021 2:46 AM CDT) Neutrophil abs 2.9 1.7 - 6.5 K/cumm [facility] Imm gran abs 0.0 0.0 - 0.1 K/cumm [facility] Lymphocyte abs 1.4 0.8 - 3.3 K/cumm [facility] Monocyte abs 0.2 0.2 - 0.8 K/cumm [facility] Eosinophil abs 0.1 0.0 - 0.5 K/cumm [facility] Basophil abs 0.0 0.0 - 0.1 K/cumm [facility] Neutrophil pct 62.5 % [facility] Comment: Interpretive Data Percent cell count reference ranges are not reported, since discordance with absolute values may lead to misinterpretation of CBC data. Current Interpretive Data was last revised on 2017. Imm gran pct 0.2 % [facility] Comment: Interpretive Data Percent cell count reference ranges are not reported, since discordance with absolute values may lead to misinterpretation of CBC data. Current Interpretive Data was last revised on 2017. Lymphocyte pct 29.4 % [facility] Comment: Interpretive Data Percent cell count reference ranges are not reported, since discordance with absolute values may lead to misinterpretation of CBC data. Current Interpretive Data was last revised on 2017. Monocyte pct 5.1 % [facility] Comment: Interpretive Data Percent cell count reference ranges are not reported, since discordance with absolute values may lead to misinterpretation of CBC data. Current Interpretive Data was last revised on 2017. Eosinophil pct 2.6 % [facility] Comment: Interpretive Data Percent cell count reference ranges are not reported, since discordance with absolute values may lead to misinterpretation of CBC data. Current Interpretive Data was last revised on 2017. Basophil pct 0.2 % [facility] Comment: Interpretive Data Percent cell count reference ranges are not reported, since discordance with absolute values may lead to misinterpretation of CBC data. Current Interpretive Data was last revised on 2017. Blood 10/08/2021 2:46 AM CDT 10/08/2021 2:46 AM CDT us Saqib Currie DO LAB BLOOD ORDERABLES Fi nal Result [facility] [address] Department [place] [address] * (ABNORMAL) CBC with auto differential (10/08/2021 2:46 AM CDT) WBC 4.7 3.8 - 9.9 K/cumm [facility] Hgb 10.9(L) 13.0 - 17.5 g/dL [facility] Hct 32.7(L) 38.9 - 50.3 % [facility] Plt 120(L) 150 - 400 K/cumm [facility] MPV 10.5 9.1 - 12.3 fL [facility] RBC 3.49(L) 4.30 - 5.80 M/cumm [facility] MCV 93.7 81.3 - 96.4 fL [facility] MCH 31.2 27.1 - 33.3 pg [facility] MCHC 33.3 32.3 - 35.7 g/dL [facility] RDW CV 13.3 11.1 - 14.9 % [facility] RDW SD 45.7 35.7 - 48.1 fL [facility] NRBC abs 0.00 0.00 - 0.01 K/cumm [facility] Blood 10/08/2021 2:46 AM CDT 10/08/2021 2:46 AM CDT us Miguel Flores MD LAB BLOOD ORDERABLES Fi nal Result Performing Organization Address [facility] de Phone Number [facility] [address] [employer] [place], [place] [id number] * eGFR (10/08/2021 2:41 AM CDT) [facility] eGFR 96 mL/min/1. 73 m2 [facility] Comment: Interpretive Data Reference Interval Normal [...] DO LAB BLOOD ORDERABLES Fi nal Result Performing Organization Address [facility] Co de Phone Number [facility] [address] Department [employer] [address] * (ABNORMAL) Basic metabolic panel (10/08/2021 2:41 AM CDT) Sodium 136 135 - 145 mmol/L [facility] Potassium, pl 3.7 3.3 - 4.9 mmol/L [facility] Chloride 103 97 - 110 mmol/L [facility] CO2 27 22 - 32 mmol/L [facility] Anion gap 6 2 - 15 mmol/L [facility] BUN 11 8 - 25 mg/dL [facility] Creatinine 0.77(L) 0.80 - 1.30 mg/dL [facility] Glucose 109 70 - 199 mg/dL [facility] Comment: Interpretive Data Fasting glucose >/= [...] 2017. Calcium 8.2(L) 8.5 - 10.3 mg/dL [facility] Blood 10/08/2021 2:41 AM CDT 10/08/2021 2:46 AM CDT Miguel Flores MD LAB BLOOD ORDERABLES Fi nal Result [facility] [address] [place] [address] * CT hip right without contrast (10/07/2021 [...] the greater trochanter noted. Electronically signed by: LAEXA CARDENAS M.D. Miguel Flores MD IMG CT [...] Electronically signed by: MIREYA BARAJAS Mychal SANDOVAL IMG CT PROCEDURES Final Result * XR Hips [...] test (10/07/2021 7:45 AM CDT) Acceptable Yes [facility] Blood 10/07/2021 7:45 AM CDT 10/07/2021 7:45 AM CDT Narrative [facility] - 10/07/2021 7:45 AM CDT Name of Test->Magnesium Elisa Oliva MD LAB BLOOD ORDERABLES Final Resu lt [facility] [address] [place] [address] * Magnesium (10/07/2021 6:30 AM CDT) Magnesium 1.7 1.4 - 2.5 mg/dL [facility] Blood 10/07/2021 6:30 AM CDT 10/07/2021 6:53 AM CDT Elisa Oliva MD LAB BLOOD ORDERABLES Final Resu lt Performing Organization Address [facility]/ZIP Co de Phone Number [facility] [address] [place] [employer] [place] [address] * eGFR (10/07/2021 6:30 AM CDT) Pathologist [facility] eGFR 100 mL/min/1. 73 m2 [facility] Comment: Interpretive Data Reference Interval Normal [...] DO LAB BLOOD ORDERABLES Fi nal Result Performing Organization Address [facility]/ZIP Co de Phone Number [facility] [address] Department of [employer] [place] [address] * Differential, auto (10/07/2021 6:30 AM CDT) Neutrophil abs 1.8 1.7 - 6.5 K/cumm [facility] Imm gran abs 0.0 0.0 - 0.1 K/cumm [facility] Lymphocyte abs 1.7 0.8 - 3.3 K/cumm [facility] Monocyte abs 0.3 0.2 - 0.8 K/cumm [facility] Eosinophil abs 0.0 0.0 - 0.5 K/cumm [facility] Basophil abs 0.0 0.0 - 0.1 K/cumm [facility] Neutrophil pct 46.1 % [facility] Comment: Interpretive Data Percent cell count reference ranges are not reported, since discordance with absolute values may lead to misinterpretation of CBC data. Current Interpretive Data was last revised on 2017. Imm gran pct 0.3 % [facility] Comment: Interpretive Data Percent cell count reference ranges are not reported, since discordance with absolute values may lead to misinterpretation of CBC data. Current Interpretive Data was last revised on 2017. Lymphocyte pct 43.6 % [facility] Comment: Interpretive Data Percent cell count reference ranges are not reported, since discordance with absolute values may lead to misinterpretation of CBC data. Current Interpretive Data was last revised on 2017. Monocyte pct 8.7 % [facility] Comment: Interpretive Data Percent cell count reference ranges are not reported, since discordance with absolute values may lead to misinterpretation of CBC data. Current Interpretive Data was last revised on 2017. Eosinophil pct 1.0 % [facility] Comment: Interpretive Data Percent cell count reference ranges are not reported, since discordance with absolute values may lead to misinterpretation of CBC data. Current Interpretive Data was last revised on 2017. Basophil pct 0.3 % [facility] Comment: Interpretive Data Percent cell count reference ranges are not reported, since discordance with absolute values may lead to misinterpretation of CBC data. Current Interpretive Data was last revised on 2017. Blood 10/07/2021 6:30 AM CDT 10/07/2021 6:52 AM CDT Saqib Currie DO LAB BLOOD ORDERABLES Fi nal Result Performing Organization Address [facility] Co de Phone Number [facility] [address] Department [place] [employer] [place] [address] * (ABNORMAL) CBC with auto differential (10/07/2021 6:30 AM CDT) [facility] WBC 3.9 3.8 - 9.9 K/cumm [facility] Hgb 11.6(L) 13.0 - 17.5 g/dL [facility] Hct 35.0(L) 38.9 - 50.3 % [facility] Plt 134(L) 150 - 400 K/cumm [facility] MPV 10.6 9.1 - 12.3 fL [facility] RBC 3.72(L) 4.30 - 5.80 M/cumm [facility] MCV 94.1 81.3 - 96.4 fL [facility] MCH 31.2 27.1 - 33.3 pg [facility] MCHC 33.1 32.3 - 35.7 g/dL [facility] RDW CV 13.3 11.1 - 14.9 % [facility] RDW SD 45.8 35.7 - 48.1 fL [facility] NRBC abs 0.00 0.00 - 0.01 K/cumm [facility] Blood 10/07/2021 6:30 AM CDT 10/07/2021 6:52 AM CDT Miguel Flores MD LAB BLOOD ORDERABLES Fi nal Result Performing Organization Address [facility]/ZIP Co de Phone Number [facility] [address] Department [place] [employer] [place] [address] * (ABNORMAL) Basic metabolic panel (10/07/2021 6:30 AM CDT) [facility] Sodium 137 135 - 145 mmol/L [facility] Potassium, pl 2.9(L) 3.3 - 4.9 mmol/L [facility] Chloride 103 97 - 110 mmol/L [facility] CO2 26 22 - 32 mmol/L [facility] Anion gap 8 2 - 15 mmol/L [facility] BUN 8 8 - 25 mg/dL [facility] Creatinine 0.67(L) 0.80 - 1.30 mg/dL [facility] Glucose 77 70 - 199 mg/dL [facility] Comment: Interpretive Data Fasting glucose >/= [...] 2017. Calcium 8.1(L) 8.5 - 10.3 mg/dL [facility] Blood 10/07/2021 6:30 AM CDT 10/07/2021 6:53 AM CDT us Miguel Flores MD LAB BLOOD ORDERABLES Fi nal Result [facility] [address] Department [place] [address] * eGFR (10/06/2021 6:39 AM CDT) eGFR 98 mL/min/1. 73 m2 [facility] Comment: Interpretive Data Reference Interval Normal [...] DO LAB BLOOD ORDERABLES Fi nal Result [facility] [address] Department [place] [address] * Differential, auto (10/06/2021 6:39 AM CDT) Neutrophil abs 2.6 1.7 - 6.5 K/cumm [facility] Imm gran abs 0.0 0.0 - 0.1 K/cumm [facility] Lymphocyte abs 2.0 0.8 - 3.3 K/cumm [facility] Monocyte abs 0.4 0.2 - 0.8 K/cumm [facility] Eosinophil abs 0.0 0.0 - 0.5 K/cumm [facility] Basophil abs 0.0 0.0 - 0.1 K/cumm [facility] Neutrophil pct 51.6 % [facility] Comment: Interpretive Data Percent cell count reference ranges are not reported, since discordance with absolute values may lead to misinterpretation of CBC data. Current Interpretive Data was last revised on 2017. Imm gran pct 0.2 % [facility] Comment: Interpretive Data Percent cell count reference ranges are not reported, since discordance with absolute values may lead to misinterpretation of CBC data. Current Interpretive Data was last revised on 2017. Lymphocyte pct 40.3 % [facility] Comment: Interpretive Data Percent cell count reference ranges are not reported, since discordance with absolute values may lead to misinterpretation of CBC data. Current Interpretive Data was last revised on 2017. Monocyte pct 7.1 % [facility] Comment: Interpretive Data Percent cell count reference ranges are not reported, since discordance with absolute values may lead to misinterpretation of CBC data. Current Interpretive Data was last revised on 2017. Eosinophil pct 0.4 % [facility] Comment: Interpretive Data Percent cell count reference ranges are not reported, since discordance with absolute values may lead to misinterpretation of CBC data. Current Interpretive Data was last revised on 2017. Basophil pct 0.4 % [facility] Comment: Interpretive Data Percent cell count reference ranges are not reported, since discordance with absolute values may lead to misinterpretation of CBC data. Current Interpretive Data was last revised on 2017. Blood 10/06/2021 6:39 AM CDT 10/06/2021 7:51 AM CDT us Saqib Currie DO LAB BLOOD ORDERABLES Fi nal Result [facility] [address] Department [place] [address] * (ABNORMAL) CBC with auto differential (10/06/2021 6:39 AM CDT) WBC 4.9 3.8 - 9.9 K/cumm [facility] Hgb 12.9(L) 13.0 - 17.5 g/dL [facility] Hct 39.2 38.9 - 50.3 % [facility] Plt 158 150 - 400 K/cumm [facility] MPV 10.9 9.1 - 12.3 fL [facility] RBC 4.10(L) 4.30 - 5.80 M/cumm [facility] MCV 95.6 81.3 - 96.4 fL [facility] MCH 31.5 27.1 - 33.3 pg [facility] MCHC 32.9 32.3 - 35.7 g/dL [facility] RDW CV 13.5 11.1 - 14.9 % [facility] RDW SD 47.8 35.7 - 48.1 fL [facility] NRBC abs 0.00 0.00 - 0.01 K/cumm [facility] Blood 10/06/2021 6:39 AM CDT 10/06/2021 7:51 AM CDT us Miguel Flores MD LAB BLOOD ORDERABLES Fi nal Result [facility] [address] Department [place] [address] * (ABNORMAL) Basic metabolic panel (10/06/2021 6:39 AM CDT) Sodium 139 135 - 145 mmol/L [facility] Potassium, pl 3.0(L) 3.3 - 4.9 mmol/L [facility] Chloride 103 97 - 110 mmol/L [facility] CO2 26 22 - 32 mmol/L [facility] Anion gap 10 2 - 15 mmol/L [facility] BUN 11 8 - 25 mg/dL [facility] Creatinine 0.73(L) 0.80 - 1.30 mg/dL [facility] Glucose 77 70 - 199 mg/dL [facility] Comment: Interpretive Data Fasting glucose >/= [...] 2017. Calcium 8.3(L) 8.5 - 10.3 mg/dL [facility] Blood 10/06/2021 6:39 AM CDT 10/06/2021 7:51 AM CDT Miguel Flores MD LAB BLOOD ORDERABLES Fi nal Result [facility] [address] Department [place] [address] * MRSA Only (Staphylococcs aureus) PCR Nasal (10/05/2021 12:00 PM CDT) [facility] PCR Scrn, Methicillin resistant Staphylococcus aureus (MRSA) Not Detected Not Detected [facility] Comment: Testing performed using Nucleic Acid Amplification with the [employer] Xpert MRSA Assay. This assay detects DNA from SCCmec strains of Staphylococcus aureus using Real- Time PCR and has been cleared by the FDA. Performance characteristics have been verified by the [facility]. Nasal 10/05/2021 12:0 0 PM CDT 10/05/2021 12:50 PM CDT Elisa Oliva MD LAB MICROBIOLOGY - GENERAL ORDE RABLES Final Result Performing Organization Address [facility] Co de Phone Number [facility] [address] Department of [employer] [place], [place] [phone] * Procalcitonin - Add on lab test (10/05/2021 11:45 AM CDT) [facility] Acceptable Yes [facility] Blood 10/05/2021 11:4 5 AM CDT 10/05/2021 11:45 AM CDT Narrative [facility] - 10/05/2021 11:45 AM CDT Name of Test->Procalcitonin Elisa Oliva MD LAB BLOOD ORDERABLES Final Resu lt Performing Organization Address City/[facility]/ZIP Co de Phone Number [facility] [address] Department of Laboratories [place], [place] [id number] * Procalcitonin (10/05/2021 5:44 AM CDT) Procalcitonin 0.12 0.02 - 0.80 ng/mL [facility] Blood 10/05/2021 5:44 AM CDT 10/05/2021 5:58 AM CDT us Elisa Oliva MD LAB BLOOD ORDERABLES Final Resu lt [facility] [address] Department [place] [address] * eGFR (10/05/2021 5:44 AM CDT) eGFR 95 mL/min/1. 73 m2 [facility] Comment: Interpretive Data Reference Interval Normal [...] CDT 10/05/2021 5:58 AM CDT us Saqib Donavan Rosey DO LAB BLOOD ORDERABLES Fi nal Result [facility] [address] Department [place] [address] * (ABNORMAL) Differential, auto (10/05/2021 5:44 AM CDT) Neutrophil abs 1.4(L) 1.7 - 6.5 K/cumm [facility] Imm gran abs 0.0 0.0 - 0.1 K/cumm [facility] Lymphocyte abs 0.8 0.8 - 3.3 K/cumm [facility] Monocyte abs 0.2 0.2 - 0.8 K/cumm [facility] Eosinophil abs 0.0 0.0 - 0.5 K/cumm [facility] Basophil abs 0.0 0.0 - 0.1 K/cumm [facility] Neutrophil pct 57.5 % [facility] Comment: Interpretive Data Percent cell count reference ranges are not reported, since discordance with absolute values may lead to misinterpretation of CBC data. Current Interpretive Data was last revised on 2017. Imm gran pct 0.4 % [facility] Comment: Interpretive Data Percent cell count reference ranges are not reported, since discordance with absolute values may lead to misinterpretation of CBC data. Current Interpretive Data was last revised on 2017. Lymphocyte pct 34.0 % [facility] Comment: Interpretive Data Percent cell count reference ranges are not reported, since discordance with absolute values may lead to misinterpretation of CBC data. Current Interpretive Data was last revised on 2017. Monocyte pct 8.1 % [facility] Comment: Interpretive Data Percent cell count reference ranges are not reported, since discordance with absolute values may lead to misinterpretation of CBC data. Current Interpretive Data was last revised on 2017. Eosinophil pct 0.0 % [facility] Comment: Interpretive Data Percent cell count reference ranges are not reported, since discordance with absolute values may lead to misinterpretation of CBC data. Current Interpretive Data was last revised on 2017. Basophil pct 0.0 % [facility] Comment: Interpretive Data Percent cell count reference ranges are not reported, since discordance with absolute values may lead to misinterpretation of CBC data. Current Interpretive Data was last revised on 2017. Blood 10/05/2021 5:44 AM CDT 10/05/2021 5:58 AM CDT Saqib Currie DO LAB BLOOD ORDERABLES Fi nal Result Performing Organization Address City/[facility]/ZIP Co de Phone Number [facility] [address] Department [place] [address] * (ABNORMAL) CBC with auto differential (10/05/2021 5:44 AM CDT) Pathologist [facility] WBC 2.5(L) 3.8 - 9.9 K/cumm [facility] Hgb 11.2(L) 13.0 - 17.5 g/dL [facility] Hct 32.8(L) 38.9 - 50.3 % [facility] Plt 124(L) 150 - 400 K/cumm [facility] MPV 11.1 9.1 - 12.3 fL [facility] RBC 3.44(L) 4.30 - 5.80 M/cumm [facility] MCV 95.3 81.3 - 96.4 fL [facility] MCH 32.6 27.1 - 33.3 pg [facility] MCHC 34.1 32.3 - 35.7 g/dL [facility] RDW CV 13.5 11.1 - 14.9 % [facility] RDW SD 47.1 35.7 - 48.1 fL [facility] NRBC abs 0.00 0.00 - 0.01 K/cumm [facility] Blood 10/05/2021 5:44 AM CDT 10/05/2021 5:58 AM CDT Miguel Flores MD LAB BLOOD ORDERABLES Fi nal Result Performing Organization Address City/[facility]/ZIP Co de Phone Number [facility] [address] Department [employer] [place], [place] [id number] * (ABNORMAL) Basic metabolic panel (10/05/2021 5:44 AM CDT) Sodium 140 135 - 145 mmol/L [facility] Potassium, pl 3.7 3.3 - 4.9 mmol/L [facility] Chloride 108 97 - 110 mmol/L [facility] CO2 21(L) 22 - 32 mmol/L [facility] Anion gap 11 2 - 15 mmol/L [facility] BUN 11 8 - 25 mg/dL [facility] Creatinine 0.81 0.80 - 1.30 mg/dL [facility] Glucose 89 70 - 199 mg/dL [facility] Comment: Interpretive Data Fasting glucose >/= [...] 2017. Calcium 8.0(L) 8.5 - 10.3 mg/dL [facility] Blood 10/05/2021 5:44 AM CDT 10/05/2021 5:58 AM CDT us Miguel Flores MD LAB BLOOD ORDERABLES Fi nal Result [facility] [address] Department [place] [address] * Respiratory Pathogen Panel PCR - Add on lab test (10/04/2021 3:53 PM CDT) Pathologist [facility] Acceptable Yes [facility] Blood 10/04/2021 3:53 PM CDT 10/04/2021 3:54 PM CDT Narrative [facility] - 10/04/2021 3:54 PM CDT Name of Test->Respiratory Pathogen Panel PCR us Alysha Ramirez MD LAB BLOOD ORDERABLES Final Re sult Performing Organization Address [facility]/ZIP Co de Phone Number [facility] [address] [facility] [employer] [place] [address] * (ABNORMAL) Troponin T high-sensitivity 2-hour (10/04/2021 3:18 PM CDT) Trop T hs 29(H) <=22 ng/L [facility] Comment: Interpretive Data For further hscTnT resources including the diagnostic algorithm and an aid in interpretation, copy and paste this link: https://nrl.testcatalog.org/show/hsTrop Current Interpretive Data last revised 2020. Trop T hs delta -1 ng/L [facility] Trop T hs interp Insignificant [facility] Blood 10/04/2021 3:18 PM CDT 10/04/2021 3:59 PM CDT Gian Jackson MD LAB BLOOD ORDERABLES Final R esult Performing Organization Address [facility] Co de Phone Number [facility] [address] Department [employer] [address] * [place] CRITICAL CARE ILL/INJURED PATIENT INIT 30-74 MIN [...] Blood gas, venous (10/04/2021 2:51 PM CDT) pH, Venous 7.29(L) 7.32 - 7.43 [facility] PCO2, Venous 53(H) 40 - 50 mmHg [facility] PO2, Venous 62 mmHg [facility] Comment: Interpretive Data No Reference Range Established Current Interpretive Data was last revised on 2017. HCO3 Venous, Calculated 26 20 - 30 mmol/L [facility] BE, venous -2 mmol/L [facility] Comment: nterpretive Data No Reference Range Established Current Interpretive Data was last revised on 2017. Blood 10/04/2021 2:51 PM CDT 10/04/2021 2:57 PM CDT Gian Jackson MD LAB BLOOD ORDERABLES Final R esult [facility] [address] Department [place] [address] * Blood culture Blood Peripheral (10/04/2021 2:21 PM CDT) Report Final Report: No growth [facility] Blood (Peripheral) 10/04/2021 2:21 PM CDT 10/04/2021 2:29 PM CDT Narrative [facility] - 10/10/2021 7:01 AM CDT From a different site than #1. Draw Blood cultures before administration of Antibiotics us Alysha Ramirez MD LAB MICROBIOLOGY - GENERAL OR DERABLES Final Result Performing Organization Address City/[facility]/ZIP Co de Phone Number [facility] [address] [facility] [employer] [place], [place] [phone] * Blood culture Blood Peripheral (10/04/2021 2:21 PM CDT) Report Final Report: No growth [facility] Blood (Peripheral) 10/04/2021 2:21 PM CDT 10/04/2021 2:29 PM CDT Narrative [facility] - 10/10/2021 7:01 AM CDT Draw Blood cultures before administration of Antibiotics us Alysha Ramirez MD LAB MICROBIOLOGY - GENERAL OR DERABLES Final Result Performing Organization Address [facility]/ZIP Co de Phone Number [facility] [address] [facility] [employer] [place], [place] [id number] * Sepsis Lactate w/ Reflex (10/04/2021 2:21 PM CDT) Sepsis Lactate 1.3 0.7 - 2.0 mmol/L [facility] Blood 10/04/2021 2:21 PM CDT 10/04/2021 2:28 PM CDT us Alysha Ramirez MD LAB BLOOD ORDERABLES Final Re sult Performing Organization Address City/[facility]/ZIP Co de Phone Number [facility] [address] [facility] [employer] [place], [place] [id number] * XR Chest Pa Lateral 2 Views [...] aorta. Electronically signed by: Vicente Verma M.D. Alysha Ramirez MD IMG XR PROCEDURES Final [...] scar /nodule at the vertex. Procedure Note Lotus Sharpe MD - 10/04/2021 EXAMINATION: CT head without [...] 1:24 PM CDT) Color, ur Yellow Yellow [facility] Clarity, ur Clear Clear [facility] Specific gravity, ur 1.014 1.003 - 1.030 [facility] pH, urine 6.5 [facility] Protein, ur ql Trace Negative [facility] Glucose, ur ql Negative Negative [facility] Ketones, ur Negative Negative [facility] Bilirubin, ur Negative Negative [facility] Blood, ur Negative Negative [facility] Urobilinogen, ur <2.0 <2.0 mg/dL [facility] Nitrite, ur Negative Negative [facility] Leukocyte esterase, ur Negative Negative [facility] UA reflex comment Reflex conditions for microscopic UA and culture not met. [facility] Urine 10/04/2021 1:24 PM CDT 10/04/2021 4:49 PM CDT Narrative [facility] - 10/04/2021 4:57 PM CDT ?? Urine pH is affected by diet, medications, systemic acid-base disturbances, and renal tubular function. ??pH may affect urinary stone formation. ??For example, urine pH below 6.0 may help reduce the tendency for calcium phosphate stones and pH greater than 6.0 may reduce the tendency for uric acid stone formation. Source: [facility] [employer]. Last revised 04-18-2017 Gian Jackson MD LAB MICROBIOLOGY - GENERAL O RDERABLES Final Result Performing Organization Address City/[facility]/ZIP Co de Phone Number [facility] [address] Department [place] [address] * ECG 12 lead (10/04/2021 1:23 PM CDT) 10/04/2021 1:23 PM CDT Narrative [facility] - 10/05/2021 8:17 PM CDT Vent Rate: 69 bpm RR Interval: 862 msec [place] Interval: 0 msec QRS Duration: 83 msec QT Interval: 448 msec QTC Interval: 467 msec P-R-T [place]: 0 - 68 - 71 degrees ATRIAL FIBRILLATION PROLONGED QT INTERVAL ABNORMAL ECG Electronically Signed By: Andreas Wheeler MD [facility] Gian Jackson MD ECG ORDERABLES Final Result Performing Organization Address [facility] Co de Phone Number [facility] * (ABNORMAL) Respiratory pathogen panel Nasopharyngeal (10/04/2021 1:22 PM CDT) Pathologist [facility] Influenza A RNA Not Detected Not Detected [facility] Influenza B RNA Not Detected Not Detected [facility] RSV RNA Not Detected Not Detected [facility] COVID-19 RNA Detected(A) Not Detected [facility] Coronavirus 229E RNA Not Detected Not Detected [facility] Coronavirus HKU1 RNA Not Detected Not Detected [facility] Coronavirus NL63 RNA Not Detected Not Detected [facility] Coronavirus OC43 RNA Not Detected Not Detected [facility] Adenovirus DNA Not Detected Not Detected [facility] Metapneumovirus RNA Not Detected Not Detected [facility] Rhinovirus/Enterov irus RNA Not Detected Not Detected [facility] Parainfluenza 1 RNA Not Detected Not Detected [facility] Parainfluenza 2 RNA Not Detected Not Detected [facility] Parainfluenza 3 RNA Not Detected Not Detected [facility] Parainfluenza 4 RNA Not Detected Not Detected [facility] B. pertussis DNA Not Detected Not Detected [facility] B. parapertussis DNA Not Detected Not Detected [facility] C. pneumoniae DNA Not Detected Not Detected [facility] M. pneumoniae DNA Not Detected Not Detected [facility] Comment: Interpretive Data The [employer] FilmArray Respiratory Panel (RP2.1) assay is a [...] patient with possible respiratory tract infection. The diaDexusArray RP2.1 assay has FDA clearance for testing of SPORTS STATISTICIAN swabs. ??The performance characteristics of this assay have been determined by [facility]. Current interpretive data was last revised on 2020. Nasopharyngeal 10/04/2021 1: 22 PM CDT 10/05/2021 9:50 AM CDT us Elisa Oliva MD LAB MICROBIOLOGY - GENERAL ENA GRAFF Final Result [facility] [address] Department [place] [address] * eGFR (10/04/2021 1:22 PM CDT) eGFR 86 mL/min/1. 73 m2 [facility] Comment: Interpretive Data Reference Interval [...] ORDERABLES Final R esult Performing Organization Address [facility] Co de Phone Number [facility] [address] [facility] [employer] [place], [place] [phone] * Magnesium (10/04/2021 1:22 PM CDT) Magnesium 1.9 1.4 - 2.5 mg/dL [facility] Blood 10/04/2021 1:22 PM CDT 10/04/2021 1:45 PM CDT Gian Jackson MD LAB BLOOD ORDERABLES Final R esult Performing Organization Address [facility] Co de Phone Number [facility] [address] Department [employer] [place], [place] [phone] * Phosphorus (10/04/2021 1:22 PM CDT) Phosphorus, pl 4.0 2.3 - 4.5 mg/dL [facility] Blood 10/04/2021 1:22 PM CDT 10/04/2021 1:45 PM CDT Gian Jackson MD LAB BLOOD ORDERABLES Final R esult Performing Organization Address City/[facility] Co de Phone Number [facility] [address] [facility] [employer] [place], [place] [phone] * (ABNORMAL) Differential, auto (10/04/2021 1:22 PM CDT) Neutrophil abs 1.2(L) 1.7 - 6.5 K/cumm [facility] Imm gran abs 0.0 0.0 - 0.1 K/cumm [facility] Lymphocyte abs 1.0 0.8 - 3.3 K/cumm [facility] Monocyte abs 0.4 0.2 - 0.8 K/cumm [facility] Eosinophil abs 0.0 0.0 - 0.5 K/cumm [facility] Basophil abs 0.0 0.0 - 0.1 K/cumm [facility] Neutrophil pct 47.8 % [facility] Comment: Interpretive Data Percent cell count reference ranges are not reported, since discordance with absolute values may lead to misinterpretation of CBC data. Current Interpretive Data was last revised on 2017. Imm gran pct 0.4 % [facility] Comment: Interpretive Data Percent cell count reference ranges are not reported, since discordance with absolute values may lead to misinterpretation of CBC data. Current Interpretive Data was last revised on 2017. Lymphocyte pct 37.3 % [facility] Comment: Interpretive Data Percent cell count reference ranges are not reported, since discordance with absolute values may lead to misinterpretation of CBC data. Current Interpretive Data was last revised on 2017. Monocyte pct 14.1 % [facility] Comment: Interpretive Data Percent cell count reference ranges are not reported, since discordance with absolute values may lead to misinterpretation of CBC data. Current Interpretive Data was last revised on 2017. Eosinophil pct 0.0 % [facility] Comment: Interpretive Data Percent cell count reference ranges are not reported, since discordance with absolute values may lead to misinterpretation of CBC data. Current Interpretive Data was last revised on 2017. Basophil pct 0.4 % [facility] Comment: Interpretive Data Percent cell count reference ranges are not reported, since discordance with absolute values may lead to misinterpretation of CBC data. Current Interpretive Data was last revised on 2017. Blood 10/04/2021 1:22 PM CDT 10/04/2021 1:45 PM CDT us Gian Jackson MD LAB BLOOD ORDERABLES Final R esult [facility] [address] Department [place] [employer] [place] [address] * (ABNORMAL) Influenza A/B, RSV, and COVID-19 PCR Nasopharyngeal (10/04/2021 1:22 PM CDT) [facility] COVID-19 RNA Positive(A) Negative [facility] Influenza A RNA Negative Negative [facility] Influenza B RNA Negative Negative [facility] RSV RNA Negative Negative [facility] Comment: Interpretive data: This test is performed using the [employer] Xpert Xpress CoV-2/Flu/RSV plus assay. This is [...] PM CDT 10/04/2021 1:45 PM CDT Narrative [facility] - 10/04/2021 3:52 PM CDT Is the Patient experiencing symptoms consistent with COVID?->Unknown Reason for testing?->Bed placement or semi-private room us Alysha Ramirez MD LAB MICROBIOLOGY - GENERAL OR DERABLES Final Result [facility] [address] Department [place] [address] * (ABNORMAL) Troponin T high-sensitivity series (baseline, 2hr, 4hr, 6hr) (10/04/2021 1:22 PM CDT) [facility] Trop T hs 30(H) <=22 ng/L [facility] Comment: Interpretive Data For further hscTnT resources including the diagnostic algorithm and an aid in interpretation, copy and paste this link: https://nrl.testcatalog.org/show/hsTrop Current Interpretive Data last revised 2020. Blood 10/04/2021 1:22 PM CDT 10/04/2021 1:45 PM CDT Gian Jackson MD LAB BLOOD ORDERABLES Final R esult Performing Organization Address City/[facility] Co de Phone Number [facility] [address] [employer] [place], [place] [phone] * (ABNORMAL) CBC with auto differential (10/04/2021 1:22 PM CDT) Pathologist [facility] WBC 2.6(L) 3.8 - 9.9 K/cumm [facility] Hgb 12.0(L) 13.0 - 17.5 g/dL [facility] Hct 36.4(L) 38.9 - 50.3 % [facility] Plt 122(L) 150 - 400 K/cumm [facility] MPV 10.9 9.1 - 12.3 fL [facility] RBC 3.81(L) 4.30 - 5.80 M/cumm [facility] MCV 95.5 81.3 - 96.4 fL [facility] MCH 31.5 27.1 - 33.3 pg [facility] MCHC 33.0 32.3 - 35.7 g/dL [facility] RDW CV 13.3 11.1 - 14.9 % [facility] RDW SD 46.7 35.7 - 48.1 fL [facility] NRBC abs 0.00 0.00 - 0.01 K/cumm [facility] Blood 10/04/2021 1:22 PM CDT 10/04/2021 1:45 PM CDT Gian Jackson MD LAB BLOOD ORDERABLES Final R esult [facility] [address] [employer] [place], [place] [phone] * (ABNORMAL) Comprehensive metabolic panel (10/04/2021 1:22 PM CDT) Pathologist [facility] Sodium 136 135 - 145 mmol/L [facility] Potassium, pl 3.3 3.3 - 4.9 mmol/L [facility] Chloride 102 97 - 110 mmol/L [facility] CO2 26 22 - 32 mmol/L [facility] Anion gap 8 2 - 15 mmol/L [facility] BUN 10 8 - 25 mg/dL [facility] Creatinine 0.95 0.80 - 1.30 mg/dL [facility] Glucose 121 70 - 199 mg/dL [facility] Comment: Interpretive Data Fasting glucose >/= [...] 2017. Calcium 8.5 8.5 - 10.3 mg/dL [facility] Bilirubin, total 0.4 0.1 - 1.2 mg/dL [facility] Protein, pl 5.5(L) 6.5 - 8.5 g/dL [facility] Albumin 3.2(L) 3.5 - 5.0 g/dL [facility] Alk phos 118 40 - 130 Units/L [facility] ALT 17 7 - 55 Units/L [facility] AST 32 10 - 50 Units/L [facility] Blood 10/04/2021 1:22 PM CDT 10/04/2021 1:45 PM CDT us Gian Jackson MD LAB BLOOD ORDERABLES Final R esult [facility] [address] Department [place] [address] documented in this encounter Visit Diagnoses Not on filedocumented in this encounter Admitting Diagnoses Diagnosis Sepsis [...] Given 11/01/2021 9:17 AM CDT 100 mg bupivacaine-EPINEPHrine (MARCAINE with EPI) 0.25 %-1:200,000 preservative free injection As needed, Starting on 10/08/21 at 1056, Intra-Op Given 10/08/2021 10:56 AM CDT 20 mL Surgical Site enoxaparin (LOVENOX) syringe 40 mg 40 mg, [...] 1 mg, oral, Daily, First dose on Zoe 10/05/21 at 0900 Given 11/01/2021 9:17 AM CDT 1 mg Given 10/31/2021 10:08 AM CDT 1 mg Given 10/30/2021 9:56 AM CDT 1 mg HYDROcodone-acetaminophen (NORCO) 5-325 mg per tablet 1 tablet 1 tablet, oral, Every 4 hours PRN, 1st line for pain, Starting on Sat10/08/21 at 1249, May repeat in 1 hour if pain is uncontrolled or increasing. Max 2 doses within 1 dosing interval., Indications: PainIndications:Pain Given 10/23/2021 4:11 PM CDT 1 tablet Given 10/17/2021 3:26 AM CDT 1 tablet Given 10/14/2021 5:43 PM CDT 1 tablet losartan (COZAAR) tablet 50 mg 50 mg, oral, Daily, First dose (after last modification) on Sat10/27/21 at 0900 Given 11/01/2021 9:17 AM CDT 50 mg Given 10/31/2021 10:10 AM CDT 50 mg Given 10/30/2021 9:56 AM CDT 50 mg metoprolol tartrate (LOPRESSOR) immediate release tablet 100 mg 100 mg, oral, 2 times daily, First dose (after last modification) on Sat10/07/21 at 0900 Given 11/01/2021 9:29 PM CDT 100 mg Given 11/01/2021 9:18 AM CDT 100 mg Given 10/31/2021 8:10 PM CDT 100 mg multivit lqqsgwzo-nucs-IB-calcium (THERA-M) tablet 1 tablet 1 tablet, oral, [...] Zoe 10/05/21 at 0021, Indications: Nausea and VomitingIndications:Nausea and Vomiting ondansetron ODT (ZOFRAN-ODT) disintegrating tablet 4 mg 4 mg, oral, Every 6 hours PRN, nausea, vomiting, Starting on Zoe 10/05/21 at 0021, Indications: Nausea and VomitingIndications:Nausea and [...] Given 10/30/2021 9:56 AM CDT 40 mg pravastatin (PRAVACHOL) tablet 40 mg 40 mg, oral, Daily, First dose on Zoe 10/05/21 at 0900 Given 11/01/2021 9:17 AM CDT 40 mg Given 10/31/2021 10:08 AM CDT 40 mg Given 10/30/2021 9:56 AM CDT 40 mg QUEtiapine (SEROquel) tablet 25 mg 25 mg, oral, Every 6 hours PRN, agitation, Starting on 10/25/21 at 1512 sodium chloride 0.9% irrigation As needed, Starting on 10/08/21 at 1035, Intra-Op Given 10/08/2021 10:35 AM CDT 500 mL Other (Comment) terazosin (HYTRIN) capsule 10 mg 10 mg, [...] Given 10/30/2021 9:56 AM CDT 100 mg documented in this encounter Discontinued Medications [...] (Given - Provider: Brittany Bradley RN) multivit honfhybz-pscu-LV-calci um (THERA-M) tablet 1 tablet 1 tablet, oral, Daily, First dose on Sat10/25/21 at 1600 0956 (Given - Provider: Paradise Mccormick RN) 1008 (Given - Provider: Paradise Mccormick RN) 0918 (Given - Provider: Alba Martinez, GAURAV) pantoprazole DR (PROTONIX) extended release tablet 40 [...] on Sat10/05/21 at 0021, Indications: Nausea and Vomiting Or ondansetron (ZOFRAN) injection 4 mgJump to med 4 mg, intravenous, Administer over 2 Minutes, Every 6 hours PRN, nausea, vomiting, if not tolerating PO, Starting on Sat10/05/21 at 0021, Indications: Nausea and Vomiting documented in this encounter Orders Medications Ordered That Bimal ht Not Have Been Administered Count Last Ordered Date First Ordered Date amLODIPine (NORVASC) tablet 5 mg 1 10/28/19 losartan (COZAAR) tablet 50 mg 1 10/26/2021 losartan (COZAAR) tablet 25 mg 1 10/25/2021 multivit hifxkxrp-owdk-EY-ca lcium (THERA-M) tablet 1 tablet 1 10/25/2021 QUEtiapine (SEROquel) tablet 25 mg 1 2021 benzonatate (TESSALON) capsule 100 mg 1 aspirin enteric coated tablet 81 mg 3 10/1010/05/2021 enoxaparin (LOVENOX) syringe 40 mg 2 202110/05/2021 albuterol 2.5 mg /3 mL (0.08 3 %) nebulizer solution 2.5 mg 1 10/08/2021 ceFAZolin (ANCEF) 2,000 mg/2 0 mL in sterile water (premix) 2,000 mg 1 10/08/2021 diphenhydrAMINE (BENADRYL) i njection 12.5 mg 1 10/08/2021 fentaNYL (SUBLIMAZE) preserv ative free injection 25 mcg 1 10/08/2021 haloperidol (HALDOL) injection 1 mg 1 10/08 HYDROcodone-acetaminophen (N ORCO) 5-325 mg per tablet 1 tablet 1 10/08/2021 HYDROmorphone (DILAUDID) injection 0.2 mg 10/08/2021 HYDROmorphone (DILAUDID) injection 0.4 mg 10/08/2021 insulin lispro (HumaLOG, ADM ELOG) 100 unit/mL injection 1-5 Units 1 10/08/2021 labetaloL (NORMODYNE,TRANDAT E) injection 5 mg 10/08/2021 meperidine (DEMEROL) preserv ative free injection 12.5 mg 10/08/2021 naloxone (NARCAN) 0.4 mg/mL injection 0.04-0.4 mg 10/08/2021 ondansetron (ZOFRAN) injection 4 mg 2 10/0810/05/2021 oxyCODONE (ROXICODONE) tablet 5 mg 2021 racepinephrine (ASTHMANEFRIN ) 2.25 % nebulizer solution 0.5 mL 10/08/2021 magnesium sulfate 2 g/50 mL in water (premix) 2 g 10/07/2021 metoprolol tartrate (LOPRESS OR) immediate release tablet 100 mg 2 10/07/2021 10/05/2021 potassium chloride ER (KLOR- CON) extended release tablet 30 mEq 10/07/2021 terazosin (HYTRIN) capsule 10 mg 10/08/19 metoprolol tartrate (LOPRESS OR) immediate release tablet 50 mg 10/06/2021 potassium chloride ER (KLOR- CON) extended release tablet 20 mEq 10/06/2021 potassium chloride ER (KLOR- CON) extended release tablet 40 mEq 10/06/2021 acetaminophen (TYLENOL) tablet 650 mg budesonide-formoteroL (SYMBI MICHAEL) 80-4.5 mcg/actuation inhaler 2 puff 1 10/05/2021 dexAMETHasone (DECADRON) tablet 6 mg 09/08 folic acid (FOLVITE) tablet 1 mg 10/06/19 metoprolol tartrate (LOPRESS OR) immediate release tablet 25 mg 10/05/2021 ondansetron ODT (ZOFRAN-ODT) disintegrating tablet 4 mg 10/05/[address] (PROTONIX) e xtended release tablet 40 mg 10/05/2021 pravastatin (PRAVACHOL) tablet 40 mg 09/08 thiamine (VITAMIN B1) tablet 100 mg 10/05 cefepime (MAXIPIME) 2,000 mg in sodium chloride 0.9% 100 mL IVPB 10/04/2021 dexAMETHasone (DECADRON) 4 m g/mL injection 6 mg 10/04/2021 remdesivir (VEKLURY) 100 mg/ 270 mL in sodium chloride 0.9% infusion (premix) 100 mg 1 10/04/2021 remdesivir (VEKLURY) 200 mg/ 290 mL in sodium chloride 0.9% infusion (premix) 200 mg 10/04/2021 sodium chloride 0.9% bolus 1,000 mL 10/04 sodium chloride 0.9% bolus 1,400 mL 10/04 vancomycin 1250 mg/250 mL in sodium chloride 0.9% (premix) 1,250 mg 1 10/04/2021 Lab Orders Without Results Count Last Ordered D ate First Ordered Date POCT GLUCOSE DEVICE 17 10/28/2021 10/09/19 Diet Count Last Ordered Date First Orde red Date ADULT DISCHARGE DIET 1 10/12/2021 Nursing Count Last Ordered Date First Orde red Date DISCHARGE ACTIVITY 1 10/12/2021 FOLLOW UP WITH ESTABLISHED PROVIDER 10/12 NURSING COMMUNICATION 10/08/2021 COOMBS CATHETER - DISCONTINUE 1 10/05/2021 STRAIGHT CATH 1 10/04/2021 Consult Count Last Ordered Date First Orde red Date IP CONSULT TO CARDIOLOGY 10/07/2021 IP CONSULT TO ORTHOPEDIC SURGERY 10/08/19 IP CONSULT TO SOCIAL WORK 10/05/2021 IV Count Last Ordered Date First [...] documented as of this encounter Care Teams Survey Engineer Relationship Specialty Start Date End Date Jean-Claude Salazar MD [address] [place] [address] PCP - General Family Medicine 04/12/20 06/12/22 Jean-Claude Salazar MD [address] [place] [address] Family Medicine 04/12/20 Jessie Delvalle MD [address] [place] [address] Orthopedic Surgery 07/07/21 Sandip Barone MD [address] [place] [address] Consulting Physician Neurosurgery 07/07/21 documented as of this encounter
--- OUTSIDE RECORDS SUMMARY | 2024-04-08 10:34 | XMS_ITS | Encounter Summary ---
Author Organization [facility] Address [address] [facility] [facility] [address] [place] [address] Care Team Providers Care Child Development Assistant Name Role Phone Jean-Claude Crawford MD Primary Care Provider Jean-Claude Crawford MD Unavailable [phone] Jessie Delvalle MD Unavailable + Sandip Barone MD Unavailable [phone] Encounter Details Date Type Department Care Team (Late st Contact Info) Description 09/25/2021 NH/SNF Visit [facility] Post Acute Care [address] [facility] [address] [facility] [address] [address] Traci Minaya MD [address] [place] [address] Paroxysmal atrial fibrillation (CMS/HCC) (HCC) (Primary Dx); Hypercholesterolemia; Falls, subsequent encounter Social History Tobacco Use Types Packs/Day [...] the phone with family, friends, or neighbors? Never 06/16/2021 How often do you get together with friends or re latives? Never 06/16/2021 How often do you attend advent or latter day serv ices? Never 06/16/2021 Do you belong to any clubs o r organizations such as advent groups, unions, fraternal or athletic groups, or school groups? No 06/16/2021 How often do you attend meet ings of the clubs or organizations you belong to? Never 06/16/2021 Are you , , di vorced, , never , or living with a partner? 06/16/2021 AUDIT-C Answer Date Recorded Q1: How often [...] like food, housing, medical care, and heating? Patient declined 06/16/2021 Hunger Vital Sign Answer Date Recorded Within the past 12 months, y ou worried that your food would run out before you got the money to buy more. Never true 06/17/19 22 Within the past 12 months, t he food you bought just didn't last and you didn't have money to get more. Never true 06/16/2021 PRAPARE - Transportation Answer Date Re corded In the past 12 months, has l ack of transportation kept you from medical appointments or from getting medications? No 06/06 In the past 12 months, has l ack of transportation kept you from meetings, work, or from getting things needed for daily living? No 06/16/2021 Housing Stability Vital Sign Answer Darren e Recorded In the last 12 months, was t here a time when you were not able to pay the mortgage or rent on time? No 06/16/2021 In the last 12 months, how many places have you lived? 1 06/16/2021 In the last 12 months, was t here a time when you did not have a steady place to sleep or slept in a correction (including now)? 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 Care Home Facility Subsequent Note Assessment and Plan Diagnoses and all orders for this visit: Paroxysmal atrial fibrillation (CMS/HCC) (HCC) (Primary) Assessment & Plan: Blood pressure /and heart rate is stable, SBP upto 160s/98-> improved since norvasc 10 mg po q day added, pulse 68-88/min, Aspirin 81 mg po qday, Metoprolol tartrate 100 mg po b.i.d, Follow with cardiology. Hypercholesterolemia Assessment & Plan: Lipid panel is within normal limits. Continue Pravastatin 40 mg po day. Falls, subsequent encounter Assessment & Plan: Multiple falls, continues to have severe debilitating weakness, L hip IT fracture repair within past 3 months, Consult with restorative physical therapy. Subjective and Objective Patient ID: Lloyd Redman is a 71 y.o. male. Chief Complaint HTN, debility. HPI He is requiring a mod to maximum assistance for his activities of daily living . Blood pressure /heart rate is stable. He follows with cardiology for EKG , currently on both Beta edmund and calcium channel edmund therapy ( initiated 5 days ago) for atrial fibrillation with rate control and ASA 81mg po daily. On a pureed diet with thin liquids, he is [place] and legally blind. Review of Systems Constitutional: Negative for activity change, appetite change and unexpected weight change. HENT: Negative for congestion, dental problem, ear discharge, ear pain, mouth sores and sore throat. Eyes: Negative for discharge. Respiratory: Negative for apnea, cough, chest tightness, shortness of breath, wheezing and stridor. Cardiovascular: Negative for chest pain, palpitations and leg swelling. Gastrointestinal: Negative for abdominal distention, blood in stool, constipation, diarrhea, nausea, rectal pain and vomiting. Endocrine: Negative for cold intolerance and heat intolerance. Genitourinary: Negative for flank pain. Musculoskeletal: Negative for neck pain. Neurological: Negative for dizziness, seizures and syncope. Psychiatric/Behavioral: Negative for behavioral problems, confusion, decreased concentration, hallucinations and suicidal ideas. The patient is not hyperactive. Physical Exam Vitals and nursing note reviewed. Constitutional: Appearance: Normal appearance. He is well-developed. HENT: Head: Normocephalic and atraumatic. Right Ear: External ear normal. Left Ear: External ear normal. Nose: Nose normal. Eyes: General: Lids are normal. Conjunctiva/sclera: Conjunctivae normal. Pupils: Pupils are equal, round, and reactive to light. Cardiovascular: Rate and Rhythm: Normal rate and regular rhythm. Heart sounds: Normal heart sounds. Pulmonary: Effort: Pulmonary effort is normal. No respiratory distress. Breath sounds: Normal breath sounds. No stridor. No wheezing. Abdominal: General: Bowel sounds are normal. There is no distension. Palpations: Abdomen is soft. Tenderness: There is no abdominal tenderness. There is no guarding or rebound. Musculoskeletal: General: Normal range of motion. Cervical back: Normal range of motion and neck supple. Comments: Left hip fracture repair. Skin: General: Skin is warm. Capillary Refill: Capillary refill takes less than 2 seconds. Findings: No erythema or rash. Neurological: Mental Status: He is alert and oriented to person, place, and time. Psychiatric: Behavior: Behavior normal. Thought Content: Thought content normal. Judgment: Judgment normal. Recent labs / tests reviewed in facility EHR Care discussed with staff. Traci Minaya MD documented in this encounter Miscellaneous Notes * Assessment & Plan Note - Traci Minaya MD - 09/25/2021 4:17 PM CDTAssociated Problem(s): Falls, subsequent encounter Multiple falls, continues to have severe debilitating weakness, L hip IT fracture repair within past 3 months, Consult with restorative physical therapy. * Assessment & Plan Note - Traci Minaya MD - 09/25/2021 4:10 PM CDTAssociated Problem(s): Hypercholesterolemia Lipid panel is within normal limits. Continue Pravastatin 40 mg po day. * Assessment & Plan Note - Traci Minaya MD - 09/25/2021 4:06 PM CDTAssociated Problem(s): Atrial fibrillation (CMS/HCC) (HCC) Blood pressure /and heart rate is stable, SBP upto 160s/98-> improved since norvasc 10 mg po q day added, pulse 68-88/min, Aspirin 81 mg po qday, Metoprolol tartrate 100 mg po b.i.d, Follow with cardiology. documented in this encounter Plan of Treatment Not on file documented as of this encounter Visit Diagnoses Diagnosis Paroxysmal atrial fibrillation (CMS/HCC) (HCC)- Primary Atrial fibrillation Hypercholesterolemia Pure hypercholesterolemia Falls, subsequent encounter documented in this encounter Additional Health Concerns Infection Onset Date Last Indicated Resolved Time MDR gram neg/ESBL Comment:06/16/2021 IP Review - Pt with scrotal abscess, but is not actively draining (last documented draining on 06/14). Pt remains intubated so requires trach aspirate for isolation discontinuation. Provider notified. Amanda Walker RN 12/19/2019 12/19/2019 documented as of this encounter Care Teams Child Development Assistant Relationship Specialty Start Date End Date Jean-Claude Crawford MD [address] [place] [address] [address] [address] PCP - General Family Medicine 04/12/20 06/12/22 Jean-Claude Crawford MD [facility] [address] [address] Family Medicine 04/12/20 Jessie Delvalle MD [facility] [address] [facility] [address] [place] [address] Orthopedic Surgery 07/07/21 Sandip Barone MD [address] [place] [address] Consulting Physician Neurosurgery 07/07/21 documented as of this encounter
--- OUTSIDE RECORDS SUMMARY | 2024-04-08 10:35 | XMS_ITS | Encounter Summary ---
Author Organization [facility] Address [address] [place] [address] Care Team Providers Care Jack Spooler Tender Name Role Phone Jean-Claude Crawford MD Primary Care Provider Jean-Claude Crawford MD Unavailable [phone] Jessie Delvalle MD Unavailable + Sandip Barone MD Unavailable [phone] Reason for Visit * Diagnostic Imaging (Routine) - Closed Specialty Diagnoses / Procedures Referred By Lei strong Referred To Contact Diagnoses Closed nondisplaced intertrochanteric fracture of left femur with routine healing, subsequent encounter Procedures XR Femur Left 2 or More Views Jessie Delvalle MD [address] [facility] [address] [place] [address] Phone: tel: fax: [facility] Referral ID Status Reason Start Date Expiration Date Visits Re quested Visits Authorized [id number] Closed 08/16/2021 09/15/2022 1 1 Encounter Details Date Type Department Care Team (Late st Contact Info) Description 08/31/2021 10:35 AM CDT - 08/31/2021 11:59 PM CDT Hospital Encounter [facility] [address] [place] [id number] Jessie Delvalle MD [address] [facility] [address] Discharge Disposition: Discharge to home or self [...] Never 06/16/2021 How often do you attend scientology or jainism serv ices? Never 06/16/2021 Do you belong to any clubs o r organizations such as scientology groups, unions, fraternal or athletic groups, or [...] in a senior care (including now)? 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 Gender Identity Not on file Sexual Orientation Not on file documented as of this encounter Medications at Time of Discharge acetaminophen (TYLENOL) 325 mg tablet Take 2 tablets (650 mg total) by mouth every 4 (four) hours as needed for pain 30 tablet 07/07/2021 aspirin 81 mg enteric coated tablet Take 1 tablet (81 mg total) by mouth daily cholecalciferol (VITAMIN D-3) 5,000 unit tabletIndications :Vitamin D Deficiency Take 1 tablet (5,000 Units total) by mouth every other day ramelteon (ROZEREM) 8 mg tabletIndications :Sleep-Onset Insomnia Take 1 tablet (8 mg total) by mouth nightly 30 tablet 11 07/07/2021 albuterol 2.5 mg /3 mL (0.083 %) nebulizer solutionIndicatio ns:Bronchospastic Pulmonary Disease Take 1.5 mL (1.25 mg total) by nebulization every 6 (six) hours as needed for wheezing 75 mL 07/07/2021 2 fluticasone furoate-vilantero L (BREO ELLIPTA) 100-25 mcg/dose diskus inhaler Inhale 1 puff daily Rinse mouth with water after use. Do not swallow. 60 each 07/07/2021 2 folic acid (FOLVITE) 1 mg tablet Take 1 tablet (1 mg total) by mouth daily 30 tablet 02/22/2020 2 melatonin 5 mg capsule Take 5 mg by mouth nightly 2 metoprolol (LOPRESSOR) 100 mg tabletIndications :Atrial fibrillation, unspecified type (HCC) Take 1 tablet (100 mg total) by mouth 2 (two) times a day 180 tablet 3 01/30/2021 3 multivit,tx with iron,minerals (THERA-M ORAL) Take 1 tablet by mouth every morning 3 mupirocin (BACTROBAN) 2 % creamIndications: peritoneal dialysis catheter care Apply topically 3 (three) times a day [address] (PROTONIX) 40 mg EC tabletIndications :Stress Ulcer Prophylaxis Take 1 tablet (40 mg total) by mouth daily 30 tablet 11 02/23/2020 2 pravastatin (PRAVACHOL) 40 mg tablet Take 40 mg by mouth daily 3 senna 1.76 mg/mL syrup Administer 5 mL (8.8 mg total) per feeding tube 2 (two) times a day 100 mL 07/07/2021 2 terazosin (HYTRIN) 10 mg capsule Take 1 capsule (10 mg total) by mouth nightly 30 capsule 02/22/2020 2 thiamine (VITAMIN B1) 100 mg tabletIndications :Thiamine Deficiency Take 100 mg by mouth every morning 3 documented as of this encounter Discharge Disposition Disposition Code Departure Means Destination Discharge to home or self care documented in this encounter Plan of Treatment Not on file documented as of this encounter Procedures Procedure Name Priority Date/Time Associated Diagnosis Comments XR FEMUR LEFT 2 OR MORE VIEWS Schedule Routine, Read Routine (OP Routine) 08/31/2021 10:45 AM CDT Closed nondisplaced intertrochanteric fracture of left femur with routine healing, subsequent encounter documented in this encounter Results * XR Femur Left 2 or More Views (08/31/2021 10:45 AM CDT) Anatomical Region Laterality Modality Lower Extremities, Thigh, Femur Left Computed Radiography 08/31/2021 11:3 4 AM CDT Impressions 08/31/2021 11:34 AM CDT 1. Interval reduced and nailed proximal left femoral intertrochanteric fracture. Electronically signed by: Heron Machado M.D. Narrative 08/31/2021 11:34 AM CDT EXAM: 1. ??XR FEMUR LEFT 2 OR MORE VIEWS HISTORY: Left femur fracture follow-up COMPARISON: Radiographs 07/03/2021 FINDINGS: 3 radiographs of the left femur submitted for interpretation. Interval reduced and nailed proximal femur intertrochanteric fracture with proximal and distal interlocking screws. Instrumentation is intact. Knee and hip joint alignment is normal. No knee joint effusion. Vascular calcifications are present. Procedure Note Heron Machado MD - 08/31/2021 EXAM: 1. XR FEMUR LEFT 2 OR MORE VIEWS HISTORY: Left femur fracture follow-up COMPARISON: Radiographs 07/03/2021 FINDINGS: 3 radiographs of the left femur submitted for interpretation. Interval reduced and nailed proximal femur intertrochanteric fracture with proximal and distal interlocking screws. Instrumentation is intact. Knee and hip joint alignment is normal. No knee joint effusion. Vascular calcifications are present. IMPRESSION: 1. Interval reduced and nailed proximal left femoral intertrochanteric fracture. Electronically signed by: Heron Machado M.D. Jessie Delvalle MD IMG XR PROCEDURES Final Result documented in [...] documented as of this encounter Care Teams Jack Spooler Tender Relationship Specialty Start Date End Date Jean-Claude Crawford MD [address] [place] [address] PCP - General Family Medicine 04/12/20 06/12/22 Jean-Claude Crawford MD [address] [place] [address] Family Medicine 04/12/20 Jessie Delvalle MD [address] [address] Orthopedic Surgery 07/07/21 Sandip Barone MD [address] [address] Consulting Physician Neurosurgery 07/07/21 documented as of this encounter
--- OUTSIDE RECORDS SUMMARY | 2024-04-08 10:35 | XMS_ITS | Encounter Summary ---
Author Organization [facility] Address [address] [place] [address] Care Team Providers Care Shallot Cleaner Name Role Phone Jean-Claude Crawford MD Primary Care Provider Jean-Claude Crawford MD Unavailable [phone] Jessie Delvalle MD Unavailable + Sandip Barone MD Unavailable [phone] Encounter Details Date Type Department Care Team (Latest Contact Info) Description 07/14/2021 NH/SNF Visit [facility] Post Acute Care [address] [id number] Giuseppe Salazar, LORI [address] [facility] [address] [place] [address] Closed nondisplaced intertrochanteric fracture of left femur with routine healing, subsequent encounter (Primary Dx) Social History Tobacco Use Types [...] Never 06/16/2021 How often do you attend restoration or restoration serv ices? Never 06/16/2021 Do you belong to any clubs o r organizations such as restoration groups, unions, fraternal or athletic groups, or [...] place to sleep or slept in a alf (including now)? 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 Gender Identity Not on file Sexual Orientation Not on file documented as of this encounter Last Filed Vital Signs Vital Sign Reading Time Taken Comments Blood Pressure 154/71 07/14/2021 3:14 PM CDT Pulse 81 07/14/2021 3:14 PM CDT Temperature 37 ??C (98.6 ??F) 07/14/2021 3:14 PM CDT Respiratory Rate 20 07/14/2021 3:14 PM CDT Oxygen Saturation 98% 07/14/2021 3:14 PM CDT Inhaled Oxygen Concentration - - Weight - - Height - - Body Mass Index - - documented in this encounter Progress Notes * Giuseppe Salazar PA - 07/14/2021 2:53 PM CDT Assessment and Plan Diagnoses and all orders for this visit: Closed nondisplaced intertrochanteric fracture of left femur with routine healing, subsequent encounter (Primary) Assessment & Plan: Resident with a left femur fracture status post ORIF. He has 3 incisions on his lateral hip and groin area. All of them appear to be red around the alice. We are asked to see him today he has no induration no heat no for fluctuance and no exudate no drainage. Incision is well approximated with nogaps in the incision and no drainage. Laurel only been there in less than a week surgeon wants him in until July 25. Appears that he is reacting to the stable since surgeon wants them in that long we will start him on bacitracin ointment and doxycycline 100 mg twice daily for 7 days. Continue monitor his incision. Night his pain control is adequate. Subjective and Objective Patient ID: Lloyd Redman is a 71 y.o. male Allergies Allergen Reactions ??? Penicillins Hives Chief Complaint Staff reports redness around the incision in left hip. HPI See assessment and plan above. ROS I he has been afebrile. No chills no sweats no increased tenderness in the left hip incision area. He has less than a week postop. He has alice in place. He has developed some redness in the insertion of the alice. See assessment and plan above BP 154/71 Pulse 81 Temp 37 ??C (98.6 ??F) Resp 20 SpO2 98% PHYSICAL EXAM: I he is alert slightly confused. I he was sleeping he want to be left alone. We were able to examine him with regard to the above concern. He has redness at the insertion of each staple. No exudates drainage no increased redness or induration. Is slightly pink. Incisions are well approximated and appear to be healing well. LAB/XRAY: None for review MEDICATION: Current Outpatient Medications: ??? acetaminophen (TYLENOL) 325 mg tablet, Take 2 tablets (650 mg total) by mouth every 4 (four) hours as needed for pain, Disp: 30 tablet, Rfl: 0 ??? albuterol 2.5 mg /3 mL (0.083 %) nebulizer solution, Take 1.5 mL (1.25 mg total) by nebulization every 6 (six) hours as needed for wheezing, Disp: 75 mL, Rfl: 0 ??? cholecalciferol (VITAMIN D-3) 5,000 unit tablet, Take 5,000 Units by mouth every morning , Disp: , Rfl: ??? enoxaparin (LOVENOX) 40 mg/0.4 mL syringe, Inject 0.4 mL (40 mg total) under the skin daily for28 days, Disp: 11.2 mL, Rfl: 0 ??? fluticasone furoate-vilanteroL (BREO ELLIPTA) 100-25 mcg/dose diskus inhaler, Inhale 1 puff daily Rinse mouth with water after use. Do not swallow., Disp: 60 each, Rfl: 0 ??? folic acid (FOLVITE) 1 mg tablet, Take 1 tablet (1 mg total) by mouth daily (Patient taking differently: Take 1 mg by mouth every morning ), Disp: 30 tablet, Rfl: 0 ??? metoprolol (LOPRESSOR) 100 mg tablet, Take 1 tablet (100 mg total) by mouth 2 (two) times a day, Disp: 180 tablet, Rfl: 3 ??? miconazole (SECURA THICK) 2 % cream, Apply topically 2 (two) times a day, Disp: 28.35 g, Rfl: 0 ??? multivit,tx with iron,minerals (THERA-M ORAL), Take 1 tablet by mouth every morning , Disp: , Rfl: ??? pantoprazole DR (PROTONIX) 40 mg EC tablet, Take 1 tablet (40 mg total) by mouth daily (Patienttaking differently: Take 40 mg by mouth every morning ), Disp: 30 tablet, Rfl: 11 ??? pravastatin (PRAVACHOL) 40 mg tablet, Take 40 mg by mouth daily, Disp: , Rfl: ??? ramelteon (ROZEREM) 8 mg tablet, Take 1 tablet (8 mg total) by mouth nightly, Disp: 30 tablet, Rfl: 11 ??? senna 1.76 mg/mL syrup, Administer 5 mL (8.8 mg total) per feeding tube 2 (two) times a day, Disp: 100 mL, Rfl: 0 ??? terazosin (HYTRIN) 10 mg capsule, Take 1 capsule (10 mg total) by mouth nightly (Patient takingdifferently: Take 10 mg by mouth nightly ), Disp: 30 capsule, Rfl: 0 ??? thiamine (VITAMIN B1) 100 mg tablet, Take 100 mg by mouth every morning , Disp: , Rfl: ??? traZODone (DESYREL) 100 mg tablet, Take 1 tablet (100 mg total) by mouth nightly, Disp: 30 tablet, Rfl: 0 Total time spent in care, counseling and coordination of care : 20 minutes. Discussed with charge nurse. And resident. Reviewed communication. LORI Villaseñor documented in this encounter Miscellaneous Notes * Assessment & Plan Note - Giuseppe Salazar PA - 07/17/2021 3:18 PM CDT Associated Problem(s): Closed nondisplaced intertrochanteric fracture of left femur (HCC) Resident with a left femur fracture status post ORIF. He has 3 incisions on his lateral hip and groin area. All of them appear to be red around the alice. We are asked to see him today he has no induration no heat no for fluctuance and no exudate no drainage. Incision is well approximated with nogaps in the incision and no drainage. Laurel only been there in less than a week surgeon wants him in until July 25. Appears that he is reacting to the stable since surgeon wants them in that long we will start him on bacitracin ointment and doxycycline 100 mg twice daily for 7 days. Continue monitor his incision. Night his pain control is adequate. documented in this encounter Plan of Treatment Not on file documented as of this encounter Visit Diagnoses Diagnosis Closed nondisplaced intertrochanteric fracture of left femur with routine healing, subsequent encounter- Primary documented in this encounter Additional Health Concerns Infection Onset Date Last Indicated Resolved Time MDR gram neg/ESBL Comment:06/16/2021 IP Review - Pt with scrotal abscess, but is not actively draining (last documented draining on 06/14). Pt remains intubated so requires trach aspirate for isolation discontinuation. Provider notified. Amanda Walker RN 12/19/2019 12/19/2019 documented as of this encounter Care Teams Shallot Cleaner Relationship Specialty Start Date End Date Jean-Claude Crawford MD [address] [facility] [address] [place] [address] PCP - General Family Medicine 04/12/20 06/12/22 Jean-Claude Crawford MD [address] [address] Family Medicine 04/12/20 Jessie Delvalle MD [address] [facility] [address] [place] [address] Orthopedic Surgery 07/07/21 [place] [address] [place] [address] Consulting Physician Neurosurgery 07/07/21 documented as of this encounter
--- OUTSIDE RECORDS SUMMARY | 2024-04-08 10:35 | XMS_ITS | Encounter Summary ---
Author Organization [facility] Address [address] [place] [address] Care Team Providers Care Cardroom Hand Name Role Phone Jean-Claude Crawford MD Primary Care Provider Jean-Claude Crawford MD Unavailable [phone] Jessie Delvalle MD Unavailable + Sandip Barone MD Unavailable Reason for Visit * Reason Comments Atrial Fibrillation Encounter Details Date Type Department Care Team (Late st Contact Info) Description 08/02/2021 12:15 PM CDT Office Visit [facility] Cardiology [address] [facility] [place] [address] Abiodun Novak MD [facility] [facility] [address] [place] [address] Primary hypertension (Primary Dx); Chronic systolic heart failure (CMS/HCC) (HCC); Permanent atrial fibrillation (CMS/HCC) (HCC) Social History Tobacco Use Types Packs/Day Years [...] Never 06/16/2021 How often do you attend mandaen or anglican serv ices? Never 06/16/2021 Do you belong to any clubs o r organizations such as mandaen groups, unions, fraternal or athletic groups, or [...] slept in a fci (including now)? No 06/16/2021 Sex and Gender Information Value Date Recorded Sex Assigned at Not on file Legal Sex Male 9:10 PM THAI MASSEUR Gender Identity Not on file Sexual Orientation Not on file documented as of this encounter Last Filed Vital Signs Vital Sign Reading Time Taken Comments Blood Pressure 152/97 08/02/2021 12:14 PM CDT Pulse 83 08/02/2021 12:14 PM CDT Temperature - - Respiratory Rate - - Oxygen Saturation 97% 08/02/2021 12:14 PM CDT Inhaled Oxygen Concentration - - Weight 81.6 kg (180 lb) 08/02/2021 12:14 PM CDT Height 167.6 cm (5' 6 ) 08/02/2021 12:14 PM CDT Body Mass Index 29.05 08/02/2021 12:14 PM CDT documented in this encounter Progress Notes * Abiodun Novak MD - 08/02/2021 12:15 PM CDT Images from the original note were not included. [facility] [place] [address] [address] Cardiology Lakhwinder Chaudhry, MD Donavan Davila, MD Ray Marmolejo, MD Ray Terrazas, MD Kerwin Joyce, DO Abiodun Novak, MD Clarence Wilkes, MD Charis Park, MD Rehana Thompson, DO Pedro Luis Mccormack, MD Andreas Wheeler, MD Paradise Martin, SENIOR BIOINFORMATICS SCIENTIST Taryn Mckeon, SENIOR BIOINFORMATICS SCIENTIST Jeanine Palacios, SENIOR BIOINFORMATICS SCIENTIST Patient Name: Lloyd Redman Provider: Abiodun Novak M.D. : 1950 Date of Service: 08/02/2021 Referring: Yvette CHIEF COMPLAINT: Atrial Fibrillation HISTORY OF PRESENT ILLNESS: 71 y.o. male with a history of atrial fibrillation, previously mild LV dysfunction, no known coronary disease He has had issues with recurrent falls. He was admitted to [place] with intracranial hemorrhage prolonged hospital course there. I reviewed the details from his discharge summary. He is now in rehab. Making slow progress therapy. Seen today with his to facilitate history. Still a lot of issues with confusion and generalized weakness. He is now appropriately off anticoagulation. Echo last month with normal LV function no significant valvular disease Metabolic panel last month reviewed with normal renal function PHYSICAL EXAM: BP 152/97 Pulse 83 Ht 167.6 cm (5' 6 ) Wt 81.6 kg (180 lb) SpO2 97% BMI 29.05 kg/m?? Body mass index is 29.05 kg/m??. General: Well appearing and in no distress Respiratory: Clear to ausculation bilaterally; no wheezing/rales/rhonchi; respirations non-labored,good effort and excursion Cardiovascular: Irregular,normal PMI, normal S1 and S2. No S3 or S4. No murmers or rubs. Carotid upstrokes brisk bilaterally and without bruits Gastrointestinal: soft, non-tender abdomen, no hepatic congestion, no abnormal aortic pulsation Extremities: warm and well perfused with no cyanosis, clubbing, or edema Pulses: intact and symmetric Musculoskeletal: no obvious joint deformities, in wheelchair Skin: no obvious rash or bruising Psychiatric: normal mood and affect, some intermittent confusion may be potentiated by hearing Neurologic: awake/alert, no focal deficits, generalized motor weakness ASSESSMENT & PLAN: There are no diagnoses linked to this encounter. Abiodun Novak M.D., [facility] documented in this encounter Miscellaneous Notes * Assessment & Plan Note - Abiodun Novak MD - 08/02/2021 12:37 PM CDT Associated Problem(s): Atrial fibrillation (CMS/HCC) (HCC) Rates controlled, now off anticoagulation due to recent intracranial hemorrhage. Once he is able zaire anticoagulated for six weeks would be reasonable to pursue Watchman. Discussed this at length with patient and his . * Assessment & Plan Note - Abiodun Novka MD - 08/02/2021 12:36 PM CDT Associated Problem(s): Chronic systolic heart failure (CMS/HCC) (HCC) Likely tachycardia mediated, now resolved with normal LV function. Continue beta-edmund. * Assessment & Plan Note - Abiodun Novak MD - 08/02/2021 12:36 PM CDT Associated Problem(s): Hypertension Normotensive on current therapy documented in this encounter Plan of Treatment Not on file documented as of this encounter Visit Diagnoses Diagnosis Primary hypertension- Primary Unspecified essential hypertension Chronic systolic heart failure (CMS/HCC) (HCC) Chronic systolic heart failure Permanent atrial fibrillation (CMS/HCC) (HCC) Atrial fibrillation documented in this encounter Historical Medications * This list may reflect changes made after this encounter. aspirin 81 mg enteric coated tablet Take 1 tablet (81 mg total) by mouth daily mupirocin (BACTROBAN) 2 % creamIndications :peritoneal dialysis catheter care Apply topically 3 (three) times a day 2 added in this encounter Additional Health Concerns Infection Onset Date Last Indicated Resolved Time MDR gram neg/ESBL Comment:06/16/2021 IP Review - Pt with scrotal abscess, but is not actively draining (last documented draining on 06/14). Pt remains intubated so requires trach aspirate for isolation discontinuation. Provider notified. Amanda Walker RN 12/19/2019 12/19/2019 documented as of this encounter Care Teams Cardroom Hand Relationship Specialty Start Date End Date Jean-Claude Crawford MD [address] [facility] [address] [place] [address] PCP - General Family Medicine 04/12/20 06/12/22 Jean-Claude Crawford MD [address] [facility] [address] [place] [address] Family Medicine 04/12/20 Jessie Delvalle MD [address] [facility] [address] [place] [address] Orthopedic Surgery 07/07/21 Sandip Barone MD [address] [address] Consulting Physician Neurosurgery 07/07/21 documented as of this encounter
--- OUTSIDE RECORDS SUMMARY | 2024-04-08 10:35 | XMS_ITS | Encounter Summary ---
Author Organization [facility] Address [address] [facility] [address] [place] [address] Care Team Providers Care Ladle Liner Name Role Phone Jean-Claude Crawford MD Primary Care Provider Jean-Claude Crawford MD Unavailable [phone] Jessie Delvalle MD Unavailable + Sandip Barone MD Unavailable [phone] Reason for Visit * Reason Onset Date Comments After Hours 09/18/2021 Encounter Details Date Type Department Care Team (Late st Contact Info) Description 09/18/2021 Telephone [facility] Post Acute Care [address] [address] Traci Minaya MD [address] [place] [address] After Hours Social History Tobacco Use Types Packs/Day Years [...] often do you attend chur ch or alevism services? Never 10/06/2021 Do you belong to [...] slept in a prison (including now)? No 10/06/2021 Sex and Gender Information Value Date Recorded Sex Assigned at Not on file Legal Sex Male 9:10 PM HOG SAWYER Gender Identity Not on file Sexual Orientation Not on file documented as of this encounter Miscellaneous Notes * Telephone Encounter - Traci Minaya MD - 09/19/2021 10:49 AM CDT Send to ER for eval. * Telephone Encounter - Andreia Mena CMA - 09/18/2021 11:53 PM CDT Provider Rei [phone] [email or web address] [birth year] order to send out toER Call connected documented in this encounter Plan of Treatment [...] documented as of this encounter Care Teams Ladle Liner Relationship Specialty Start Date End Date Jean-Claude Crawford MD [address] [facility] [address] [address] PCP - General Family Medicine 04/12/20 06/12/22 Jean-Claude Crawford MD [address] [facility] [address] [address] Family Medicine 04/12/20 Jessie Delvalle MD [address] [facility] [address] [place] [address] Orthopedic Surgery 07/07/21 [place] [address] [place] [address] Consulting Physician Neurosurgery 07/07/21 documented as of this encounter
--- OUTSIDE RECORDS SUMMARY | 2024-04-08 10:35 | XMS_ITS | Encounter Summary ---
Author Organization [facility] Address [address] [place] [address] Care Team Providers Care Supervisor Lead Refinery Name Role Phone Jean-Claude Crawford MD Primary Care Provider Jean-Claude Crawford MD Unavailable [phone] Jessie Delvalle MD Unavailable + Snadip Barone MD Unavailable [phone] Encounter Details Date Type Department Care Team (Latest Contact Info) Description 08/04/2021 NH/SNF Visit [facility] Post Acute Care [address] [facility] [address] [address] Giuseppe Salazar, LORI [address] [facility] [address] [place] [address] Traumatic brain injury, with loss of consciousness of 30 minutes or less, subsequent encounter (Primary Dx); SAH (subarachnoid hemorrhage) (CMS/HCC) (HCC); Closed nondisplaced intertrochanteric fracture of left femur with routine healing, subsequent encounter; Oropharyngeal dysphagia; Panlobular emphysema (CMS/HCC) (HCC) Social History Tobacco Use Types [...] Never 06/16/2021 How often do you attend roman catholic or holiness serv ices? Never 06/16/2021 Do you belong to any clubs o r organizations such as roman catholic groups, unions, fraternal or athletic groups, or [...] place to sleep or slept in a custodial (including now)? No 06/16/2021 Sex and Gender Information Value Date Recorded Sex Assigned at Not on file Legal Sex Male 9:10 PM DULSER Gender Identity Not on file Sexual Orientation Not on file documented as of this encounter Last Filed Vital Signs Vital Sign Reading Time Taken Comments Blood Pressure 133/71 08/04/2021 4:02 PM CDT Pulse 82 08/04/2021 4:02 PM CDT Temperature 36.8 ??C (98.3 ??F) 08/04/2021 4:02 PM CD T Respiratory Rate 18 08/04/2021 4:02 PM CDT Oxygen Saturation 97% 08/04/2021 4:02 PM CDT Inhaled Oxygen Concentration - - Weight - - Height - - Body Mass Index - - documented in this encounter Progress Notes * Giuseppe Salazar PA - 08/04/2021 4:02 PM CDT Assessment and Plan Diagnoses and all orders for this visit: Traumatic brain injury, with loss of consciousness of 30 minutes or less, subsequent encounter (Primary) Assessment & Plan: Resident status post fall with the on [...] be contributing to some of his confusion. SAH (subarachnoid hemorrhage) ([facility]/HCC) ([facility]) Assessment & Plan: There has been no evidence of any decline in his cognition or motor function or sensory. Closed nondisplaced intertrochanteric fracture of left femur with routine healing, subsequent encounter Assessment & Plan: He is weight-bearing as tolerated he needs contact guard assist with all transfers and mobility. Heis very unstable. He has limited insight judgment and safety awareness. He tries to get out of bed on his own. He has had some falls without any obvious injuries. Oropharyngeal dysphagia Assessment & Plan: He has some dysphagia. Unclear whether had them before his injury. He is on a regular diet with pureed textures foods with thin liquids. I he has had no choking episodes. No reported cough congestion. His oral intake is fair Panlobular emphysema (CMS/HCC) (HCC) Assessment & Plan: Currently stable continue inhalers. He has not needed a updraft treatments. He has had no fever chills no increased productive cough no shortness of breath at rest. And no orthopnea. He is not O2 dependent his O2 sats have remained 95+ Subjective and Objective Patient ID: Lloyd Redman is a 71 y.o. male Allergies Allergen Reactions ??? Penicillins Hives Chief Complaint Staff reports he has frequently gets up on his own and falls with no injuries HPI Resident admitted here after hospitalization of fall fracture to his left hip these ORIF status full weight-bearing he has had a 7 dural bleed. He does have an underlying dementia his is was unclear when I interviewed her last week with regard to his baseline. She feels he is more confused andless compliant with safety. She is interested in bringing him home but she is not sure whether she can manage him. ROS No fever no chills cough 1st congestion. No heartburn belching bloating noted. His bowels are active he is voiding usually incontinent. He does know when he needs to void. His speech is clear his hearing is diminished but functional his vision is poor Heart rate rhythm regular lungs diminished without wheeze rhonchi or rale or increased respiratory effort at rest is abdomen is protruded soft nontender bowel sounds are active incisions are well healed. He has no edema in bilateral lower extremities negative Adal. Motor functions grossly symmetric BP 133/71 Pulse 82 Temp 36.8 ??C (98.3 ??F) Resp 18 SpO2 97% PHYSICAL EXAM: See review of systems above. LAB/XRAY: July 31 the had a BMP CMP is sodium 142 potassium 3.4 BUN 7 creatinine 0.8 GFR 96 Blood sugar 98 A CBC white count 5.4 H&H 12/35.9 platelets [id number] MEDICATION: Current Outpatient Medications: ??? acetaminophen (TYLENOL) 325 mg tablet, Take 2 tablets (650 mg total) by mouth every 4 (four) hours as needed for pain, Disp: 30 tablet, Rfl: 0 ??? albuterol 2.5 mg /3 mL (0.083 %) nebulizer solution, Take 1.5 mL (1.25 mg total) by nebulization every 6 (six) hours as needed for wheezing, Disp: 75 mL, Rfl: 0 ??? aspirin 81 mg enteric coated tablet, Take 81 mg by mouth daily, Disp: , Rfl: ??? cholecalciferol (VITAMIN D-3) 5,000 unit tablet, Take 5,000 Units by mouth every morning , Disp: , Rfl: ??? fluticasone furoate-vilanteroL (BREO ELLIPTA) 100-25 mcg/dose diskus inhaler, Inhale 1 puff daily Rinse mouth with water after use. Do not swallow., Disp: 60 each, Rfl: 0 ??? folic acid (FOLVITE) 1 mg tablet, Take 1 tablet (1 mg total) by mouth daily (Patient taking differently: Take 1 mg by mouth every morning), Disp: 30 tablet, Rfl: 0 ??? melatonin 5 mg capsule, Take 5 mg by mouth nightly, Disp: , Rfl: ??? metoprolol (LOPRESSOR) 100 mg tablet, Take 1 tablet (100 mg total) by mouth 2 (two) times a day, Disp: 180 tablet, Rfl: 3 ??? multivit,tx with iron,minerals (THERA-M ORAL), Take 1 tablet by mouth every morning , Disp: , Rfl: ??? pantoprazole DR (PROTONIX) 40 mg EC tablet, Take 1 tablet (40 mg total) by mouth daily (Patient taking differently: Take 40 mg by mouth every morning), Disp: 30 tablet, Rfl: 11 ??? senna 1.76 mg/mL syrup, Administer 5 mL (8.8 mg total) per feeding tube 2 (two) times a day, Disp: 100 mL, Rfl: 0 ??? terazosin (HYTRIN) 10 mg capsule, Take 1 capsule (10 mg total) by mouth nightly (Patient takingdifferently: Take 10 mg by mouth nightly), Disp: 30 capsule, Rfl: 0 ??? thiamine (VITAMIN B1) 100 mg tablet, Take 100 mg by mouth every morning , Disp: , Rfl: ??? enoxaparin (LOVENOX) 40 mg/0.4 mL syringe, Inject 0.4 mL (40 mg total) under the skin daily for28 days (Patient not taking: No sig reported), Disp: 11.2 mL, Rfl: 0 ??? miconazole (SECURA THICK) 2 % cream, Apply topically 2 (two) times a day (Patient not taking: No sig reported), Disp: 28.35 g, Rfl: 0 ??? mupirocin (BACTROBAN) 2 % cream, Apply topically 3 (three) times a day, Disp: , Rfl: ??? pravastatin (PRAVACHOL) 40 mg tablet, Take 40 mg by mouth daily, Disp: , Rfl: ??? ramelteon (ROZEREM) 8 mg tablet, Take 1 tablet (8 mg total) by mouth nightly (Patient not taking: Reported on 08/04/2021), Disp: 30 tablet, Rfl: 11 ??? traZODone (DESYREL) 100 mg tablet, Take 1 tablet (100 mg total) by mouth nightly (Patient not taking: No sig reported), Disp: 30 tablet, Rfl: 0 LORI Villaseñor Cosigned by Traci Minaya MD at 08/04/2021 9:28 PM CDT documented in this encounter Miscellaneous Notes * Assessment & Plan Note - Giuseppe Salazar PA - 08/04/2021 4:12 PM CDT Associated Problem(s): COPD (chronic obstructive pulmonary disease) (HCC) Currently stable continue inhalers. He has not needed a updraft treatments. He has had no fever chills no increased productive cough no shortness of breath at rest. And no orthopnea. He is not O2 dependent his O2 sats have remained 95+ * Assessment & Plan Note - Giuseppe Salazar PA - 08/04/2021 4:12 PM CDT Associated Problem(s): Dysphagia He has some dysphagia. Unclear whether had them before his injury. He is on a regular diet with pureed textures foods with thin liquids. I he has had no choking episodes. No reported cough congestion. His oral intake is fair * Assessment & Plan Note - Giuseppe Salazar PA - 08/04/2021 4:11 PM CDT Associated Problem(s): Closed nondisplaced intertrochanteric fracture of left femur (HCC) He is weight-bearing as tolerated he needs contact guard assist with all transfers and mobility. Heis very unstable. He has limited insight judgment and safety awareness. He tries to get out of bed on his own. He has had some falls without any obvious injuries. * Assessment & Plan Note - Guiseppe Salazar PA - 08/04/2021 4:10 PM CDT Associated Problem(s): SAH (subarachnoid hemorrhage) (CMS/HCC) (HCC) There has been no evidence of any decline in his cognition or motor function or sensory. * Assessment & Plan Note - Giuseppe Salazar PA - 08/04/2021 4:09 PM CDT Associated Problem(s): TBI (traumatic brain injury) ([facility]) Resident status post fall with the on [...] be contributing to some of his confusion. documented in this encounter Plan of Treatment Not on file documented as of this encounter Visit Diagnoses Diagnosis Traumatic brain injury, with loss of consciousness of 30 minutes or less, subsequent encounter- Primary SAH (subarachnoid hemorrhage) (CMS/HCC) (HCC) Subarachnoid hemorrhage Closed nondisplaced intertrochanteric fracture of left femur with routine healing, subsequent encounter Oropharyngeal dysphagia Dysphagia, oropharyngeal phase Panlobular emphysema (HCC) Other emphysema documented in this encounter Historical Medications * This list may reflect changes made after this encounter. melatonin 5 mg capsule Take 5 mg by mouth nightly 10/04/2021 added in this encounter Additional Health Concerns Infection Onset Date Last Indicated Resolved Time MDR gram neg/ESBL Comment:06/16/2021 IP Review - Pt with scrotal abscess, but is not actively draining (last documented draining on 06/14). Pt remains intubated so requires trach aspirate for isolation discontinuation. Provider notified. Amanda Walker RN 12/19/2019 12/19/2019 documented as of this encounter Care Teams Supervisor Lead Refinery Relationship Specialty Start Date End Date Jean-Claude Crawford MD [address] [address] PCP - General Family Medicine 04/12/20 06/12/22 Jean-Claude Crawford MD [address] [address] Family Medicine 04/12/20 Jessie Delvalle MD [address] [address] Orthopedic Surgery 07/07/21 Sandip Barone MD [address] [place] [address] Consulting Physician Neurosurgery 07/07/21 documented as of this encounter
--- OUTSIDE RECORDS SUMMARY | 2024-04-08 10:35 | XMS_ITS | Encounter Summary ---
Author Organization [facility] Address [address] [place] [address] Phone Care Team Providers Care Territory Manager Name Role Phone Jean-Claude Crawford MD Primary Care Provider Jean-Claude Crawford MD Unavailable [phone] Jessie Delvalle MD Unavailable + Sandip Barone MD Unavailable [phone] Reason for Visit * Reason Comments Follow-up Encounter Details Date Type Department Care Team (Late st Contact Info) Description 08/31/2021 11:10 AM CDT Office Visit [facility] Orthopaedic Surgery [address] [facility] [address] [place] [address] [place] [address] Jessie Delvalle MD [address] [facility] [address] [place] [address] Closed nondisplaced intertrochanteric fracture of left femur with routine healing, subsequent encounter Social History Tobacco Use Types [...] Never 06/16/2021 How often do you attend anabaptist or samaritan serv ices? Never 06/16/2021 Do you belong to any clubs o r organizations such as anabaptist groups, unions, fraternal or athletic groups, or [...] in a skilled nursing (including now)? No 06/16/2021 Sex and Gender Information Value Date Recorded Sex Assigned at Not on file Legal Sex Male 9:10 PM ASSISTANT ELEMENTARY TEACHER Gender Identity Not on file Sexual Orientation Not on file documented as of this encounter Progress Notes * Jessie Delvalle MD - 08/31/2021 11:10 AM CDT Status post cephalomedullary nail left nondisplaced intertrochanteric femur fracture date of surgery 04 July 2021. Subjective: Patient does report any complaints. He is not sure why he is here Objective: Patient is healthy-appearing and well-groomed, in no apparent distress. Patient is oriented to time, place, and person. Incision healing well, no drainage or erythema; no deformity or crepitation. Range of motion: diminished range with pain. Leg warm and well-perfused, capillary refill <2 seconds. No change in neurovascular exam versus prior Imaging: I have ordered reviewed and personally interpreted four views left femur which demonstrate a left proximal femur fracture healing well in proper alignment. No sign of hardware loosening or breakage. Assessment: Mr. Redman is a 71 y.o. male who sustained a left side right proving left intertrochanteric hip fracture status post cephalomedullary nail 2 months postop. Plan: Okay for full weight-bearing as tolerated. No restrictions. Optimize mobility. Bone health. Fall risk. He can follow-up in 3 months documented in this encounter Plan of Treatment [...] fracture. Electronically signed by: Heron Machado M.D. Mycahl Leonardo Delvalle MD IMG XR PROCEDURES Final Result documented in this encounter Visit Diagnoses Diagnosis Closed nondisplaced intertrochanteric fracture of left femur with routine healing, subsequent encounter documented in this encounter Discontinued Medications Medication Sig Discontinue Reason Start Date End Da te miconazole (SECURA THICK) 2 % cream Apply topically 2 (two) times a day Therapy completed 07/07/2021 08/31/2021 traZODone (DESYREL) 100 mg tabletIndications:insom seamus Take 1 tablet (100 mg total) by mouth nightly Therapy completed 07/07/2021 08/31/2021 documented as of this encounter Additional Health Concerns Infection Onset Date Last Indicated Resolved Time MDR gram neg/ESBL Comment:06/16/2021 IP Review - Pt with scrotal abscess, but is not actively draining (last documented draining on 06/14). Pt remains intubated so requires trach aspirate for isolation discontinuation. Provider notified. Amanda Walker RN 12/19/2019 12/19/2019 documented as of this encounter Care Teams Territory Manager Relationship Specialty Start Date End Date Jean-Claude Crawford MD [address] [facility] [address] [place] [address] PCP - General Family Medicine 04/12/20 06/12/22 Jean-Claude Crawford MD [address] [facility] [address] [place] [address] Family Medicine 04/12/20 Jessie Delvalle MD [address] [facility] [address] [place] [address] Orthopedic Surgery 07/07/21 Sandip Barone MD [address] [address] Consulting Physician Neurosurgery 07/07/21 documented as of this encounter
--- OUTSIDE RECORDS SUMMARY | 2024-04-08 10:35 | XMS_ITS | Encounter Summary ---
Author Organization [facility] Address [address] [facility] [address] [place] [address] Care Team Providers Care Rail Filler Name Role Phone Jean-Claude Crawford MD Primary Care Provider Jean-Claude Crawford MD Unavailable [phone] Jessie Delvalle MD Unavailable + Sandip Barone MD Unavailable [phone] Encounter Details Date Type Department Care Team (Latest Contact Info) Description 07/21/2021 NH/SNF Visit [facility] Post Acute Care [address] [facility] [address], [place] [id number] Giuseppe Salazar, LORI [address] [place] [address] Closed nondisplaced intertrochanteric fracture of left femur with routine healing, subsequent encounter (Primary Dx); Dementia without behavioral disturbance, unspecified dementia type (HCC) Social History Tobacco Use Types Packs/Day [...] Never 06/16/2021 How often do you attend confucianism or zoroastrian serv ices? Never 06/16/2021 Do you belong to any clubs o r organizations such as confucianism groups, unions, fraternal or athletic groups, or [...] in a nursing home (including now)? 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 Gender Identity Not on file Sexual Orientation Not on file documented as of this encounter Last Filed Vital Signs Vital Sign Reading Time Taken Comments Blood Pressure 134/74 07/21/2021 2:57 PM CDT Pulse 74 07/21/2021 2:57 PM CDT Temperature 36.8 ??C (98.2 ??F) 07/21/2021 2:57 PM CD T Respiratory Rate 18 07/21/2021 2:57 PM CDT Oxygen Saturation 96% 07/21/2021 2:57 PM CDT Inhaled Oxygen Concentration - - Weight - - Height - - Body Mass Index - - documented in this encounter Progress Notes * Giuseppe Salazar PA - 07/21/2021 2:57 PM CDT Assessment and Plan Diagnoses and all orders for this visit: Closed nondisplaced intertrochanteric fracture of left femur with routine healing, subsequent encounter (Primary) Assessment & Plan: Resident status post ORIF left hip. He had some increased redness around the incision in the alice last week. He was started on doxycycline 100. He has completed that today the wounds have no more redness. At all. Gote[place] are in place incision appears to be well approximated and healing well. He has no swelling of that extremity and no induration around the incision. No calf tenderness. Dementia without behavioral disturbance, unspecified dementia type (HCC) Assessment & Plan: Resident has marked confusion. Limited insight. He is cooperative with plan of care he spends most the time passively sleeping lying in bed. He denies any pain at this time. He has no pain when I palpate his incision area or move his left leg. Subjective and Objective Patient ID: Lloyd Redman is a 71 y.o. male Allergies Allergen Reactions ??? Penicillins Hives Chief Complaint Follow-up antibiotic treatment for redness at the incision. HPI See assessment and plan above. He is here for rehab. Status post fall fracture left hip. He has underlying dementia with confusion. He is cooperative with plan of care usually. He has limited insight recall. ROS He rouses easily. He confabulates conversation. He remains pleasant cooperative. He has had no reported cough or congestion shortness of breath orthopnea PND no fever chills sweats. His appetite is fair. He is voiding he is incontinent bowel and bladder. BP 134/74 Pulse 74 Temp 36.8 ??C (98.2 ??F) Resp 18 SpO2 96% PHYSICAL EXAM: I he is lying in bed he arouses easily. He is confabulating conversation. Is skin turgor is fair pupils are round sclera nonicteric mouth is moist speech is clear heart raterhythm regular lungs diminished without wheeze rhonchi or rale or increased respiratory effort is abdomen is protruded soft nontender bowel sounds are active extremities left lateral hip is well approximated and healing well. There is no further redness around the alice. There is scheduled to come out next week. LAB/XRAY: None for review MEDICATION: Current Outpatient [...] wheezing, Disp: 75 mL, Rfl: 0 ??? enoxaparin (LOVENOX) 40 mg/0.4 mL syringe, Inject 0.4 mL (40 mg total) under the skin daily for28 days, Disp: 11.2 mL, Rfl: 0 ??? fluticasone furoate-vilanteroL (BREO ELLIPTA) 100-25 mcg/dose diskus inhaler, Inhale 1 puff daily Rinse mouth with water after use. Do not swallow., Disp: 60 each, Rfl: 0 ??? metoprolol (LOPRESSOR) 100 mg [...] morning), Disp: 30 tablet, Rfl: 11 ??? pravastatin [...] every morning , Disp: , Rfl: ??? cholecalciferol (VITAMIN D-3) 5,000 unit tablet, Take 5,000 Units by mouth every morning , Disp: , Rfl: ??? folic acid (FOLVITE) 1 mg tablet, Take 1 tablet (1 mg total) by mouth daily (Patient taking differently: Take 1 mg by mouth every morning ), Disp: 30 tablet, Rfl: 0 ??? traZODone (DESYREL) 100 mg tablet, Take 1 tablet (100 mg total) by mouth nightly (Patient not taking: Reported on 07/21/2021), Disp: 30 tablet, Rfl: 0 Total time spent in care, counseling and coordination of care : The 15 minutes. Discussed with charge nurse LORI Villaseñor documented in this encounter Miscellaneous Notes * Assessment & Plan Note - Giuseppe Salazar PA - 07/21/2021 3:03 PM CDT Associated Problem(s): Dementia (HCC) Resident has marked confusion. Limited insight. He is cooperative with plan of care he spends most the time passively sleeping lying in bed. He denies any pain at this time. He has no pain when I palpate his incision area or move his left leg. * Assessment & Plan Note - Giuseppe Salazar PA - 07/21/2021 3:01 PM CDT Associated Problem(s): Closed nondisplaced intertrochanteric fracture of left femur (HCC) Resident status post ORIF left hip. He had some increased redness around the incision in the alice last week. He was started on doxycycline 100. He has completed that today the wounds have no more redness. At all. Gotebo are in place incision appears to be well approximated and healing well. He has no swelling of that extremity and no induration around the incision. No calf tenderness. documented in this encounter Plan of Treatment Not on file documented as of this encounter Visit Diagnoses Diagnosis Closed nondisplaced intertrochanteric fracture of left femur with routine healing, subsequent encounter- Primary Dementia without behavioral disturbance, unspecified dementia type documented in this encounter Additional Health Concerns Infection Onset Date Last Indicated Resolved Time MDR gram neg/ESBL Comment:06/16/2021 IP Review - Pt with scrotal abscess, but is not actively draining (last documented draining on 06/14). Pt remains intubated so requires trach aspirate for isolation discontinuation. Provider notified. Amanda Walker RN 12/19/2019 12/19/2019 documented as of this encounter Care Teams Rail Filler Relationship Specialty Start Date End Date Jean-Claude Crawford MD [address] [place] [address] PCP - General Family Medicine 04/12/20 06/12/22 Jean-Claude Crawford MD [address] [place] [address] Family Medicine 04/12/20 Jessie Delvalle MD [address] [place] [address] Orthopedic Surgery 07/07/21 Sandip Barone MD [address] [address] Consulting Physician Neurosurgery 07/07/21 documented as of this encounter
--- OUTSIDE RECORDS SUMMARY | 2024-04-08 10:35 | XMS_ITS | Encounter Summary ---
Author Organization [facility] Address [address] [place] [address] Care Team Providers Care Stitch Separator Name Role Phone Jean-Claude Crawford MD Primary Care Provider Jean-Claude Crawford MD Unavailable [phone] Jessie Delvalle MD Unavailable + Sandip Barone MD Unavailable [phone] Encounter Details Date Type Department Care Team (Late st Contact Info) Description 07/26/2021 NH/SNF Visit [facility] Post Acute Care [address] [address] [address] Traci Minaya MD [address] [place] [address] Encephalopathy (Primary Dx); Panlobular emphysema (CMS/HCC) (HCC); Hypertension, unspecified type Social History Tobacco Use Types Packs/Day Years [...] Never 06/16/2021 How often do you attend gnosticist or rastafarian serv ices? Never 06/16/2021 Do you belong to any clubs o r organizations such as gnosticist groups, unions, fraternal or athletic groups, or [...] in a senior living (including now)? 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 Custodial Facility Subsequent Note Assessment and Plan Diagnoses and all orders for this visit: Encephalopathy (Primary) Assessment & Plan: Delirium precautions, maintain sleep wake cycle, continue trazodone 100 mg p.o. nightly. Panlobular emphysema (CMS/HCC) (HCC) Assessment & Plan: Continue incentive spirometry, chest x-ray clear, Breo Ellipta daily. Hypertension, unspecified type Assessment & Plan: Holding lisinopril 40 mg, resume when sbp> 130/80 mmhg ,continue pravastatin 40 mg daily. Metoprolol tartrate 100 mg po b.i.d. Subjective and Objective Patient ID: Lloyd Redman is a 71 y.o. male. Chief Complaint Decline in cognition, aspiration on current diet requiring 1: 1 supervision assistance, lab review. HPI Decline reportedly with speech and cognition. He is participatory with physical and occupational therapy.family is looking for custodial care placement. Concern for aspiration, labs were obtained andshowed unremarkable findings. Review of Systems Constitutional: Negative for activity [...] Normal breath sounds. No stridor. No wheezing. Comments: Diminished breath sounds bilateral lung bases. Abdominal: General: Bowel sounds are normal. There is no distension. Palpations: Abdomen is soft. Tenderness: There is no abdominal tenderness. There is no guarding or rebound. Musculoskeletal: General: Normal range of motion. Cervical back: Normal range of motion and neck supple. Skin: General: Skin is warm. Capillary Refill: Capillary refill takes less than 2 seconds. Findings: No erythema or rash. Neurological: Mental Status: He is alert. Comments: Oriented to self,place,person. Psychiatric: Behavior: Behavior normal. Thought Content: Thought content normal. Judgment: Judgment normal. Recent labs / tests reviewed in facility EHR Care discussed with staff. Traci Minaya MD documented in this encounter Miscellaneous Notes * Assessment & Plan Note - Traci Minaya MD - 07/28/2021 1:19 PM CDTAssociated Problem(s): Hypertension Holding lisinopril 40 mg, resume when sbp> 130/80 mmhg ,continue pravastatin 40 mg daily. Metoprolol tartrate 100 mg po b.i.d. * Assessment & Plan Note - Traci Minaya MD - 07/28/2021 1:18 PM CDTAssociated Problem(s): COPD (chronic obstructive pulmonary disease) (HCC) Continue incentive spirometry, chest x-ray clear, Breo Ellipta daily. * Assessment & Plan Note - Traci Minaya MD - 07/28/2021 1:18 PM CDTAssociated Problem(s): Encephalopathy Delirium precautions, maintain sleep wake cycle, continue trazodone 100 mg p.o. nightly. documented in this encounter Plan of Treatment Not on file documented as of this encounter Visit Diagnoses Diagnosis Encephalopathy- Primary Unspecified encephalopathy Panlobular emphysema (HCC) Other emphysema Hypertension, unspecified type documented in this encounter Additional Health Concerns Infection Onset Date Last Indicated Resolved Time MDR gram neg/ESBL Comment:06/16/2021 IP Review - Pt with scrotal abscess, but is not actively draining (last documented draining on 06/14). Pt remains intubated so requires trach aspirate for isolation discontinuation. Provider notified. Amanda Walker RN 12/19/2019 12/19/2019 documented as of this encounter Care Teams Stitch Separator Relationship Specialty Start Date End Date Jean-Claude Crawford MD [address] [address] PCP - General Family Medicine 04/12/20 06/12/22 Jean-Claude Crawford MD [address] [place] [address] Family Medicine 04/12/20 Jessie Delvalle MD [address] [place] [address] Orthopedic Surgery 07/07/21 [place] [address] [place] [address] Consulting Physician Neurosurgery 07/07/21 documented as of this encounter
--- OUTSIDE RECORDS SUMMARY | 2024-04-08 10:35 | XMS_ITS | Encounter Summary ---
Author Organization [facility] Address [address] [place] [address] Care Team Providers Care Offset Press Operator Name Role Phone Jean-Claude Crawford MD Primary Care Provider Jean-Cladue Crawford MD Unavailable [phone] Jessie Delvalle MD Unavailable + Sandip Barone MD Unavailable [phone] Reason for Visit * Reason Onset Date Comments Bumped arm on the wall 07/11/2021 Encounter Details Date Type Department Care Team (Late st Contact Info) Description 07/11/2021 Telephone [facility] Post Acute Care [address] [facility] [facility] [address], [place] [address] Debora Suresh MA [address] [facility] [address] [place] [address] Bumped arm on the wall Social History Tobacco Use Types Packs/Day Years [...] Never 06/16/2021 How often do you attend episcopal or holiness serv ices? 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 * Telephone Encounter - Debora Suresh MA - 07/11/2021 1:37 PM CDT Frederic called for patient to report , bumped arm on the wall. Bruised documented in this encounter Plan of Treatment [...] documented as of this encounter Care Teams Offset Press Operator Relationship Specialty Start Date End Date Jean-Claude Crawford MD [address] [place] [address] PCP - General Family Medicine 04/12/20 06/12/22 Jean-Claude Crawford MD [address] [place] [address] Family Medicine 04/12/20 Jessie Delvalle MD [address] [place] [address] Orthopedic Surgery 07/07/21 Sandip Barone MD [address] [address] Consulting Physician Neurosurgery 07/07/21 documented as of this encounter
--- OUTSIDE RECORDS SUMMARY | 2024-04-08 10:35 | XMS_ITS | Encounter Summary ---
Author Organization [facility] Address [address] [facility] [address] [place] [address] Care Team Providers Care Terra Cotta Setter Name Role Phone Jean-Claude Crawford MD Primary Care Provider Jean-Claude Crawford MD Unavailable [phone] Jessie Delvalle MD Unavailable + Sandip Barone MD Unavailable [phone] Encounter Details Date Type Department Care Team (Latest Contact Info) Description 08/23/2021 NH/SNF Visit [facility] Post Acute Care [address] [facility] [address] [address] Giuseppe Salazar, LORI [address] [place] [address] Borderline hyperglycemia (Primary Dx); Benign prostatic hyperplasia with incomplete bladder emptying; Panlobular emphysema (CMS/HCC) (HCC); Closed nondisplaced intertrochanteric fracture of [...] Never 06/16/2021 How often do you attend buddhism or episcopal serv ices? 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 Gender Identity Not on file Sexual Orientation Not on file documented as of this encounter Last Filed Vital Signs Vital Sign Reading Time Taken Comments Blood Pressure 130/66 08/23/2021 3:22 PM CDT Pulse 82 08/23/2021 3:22 PM CDT Temperature 36.3 ??C (97.3 ??F) 08/23/2021 3:22 PM CD T Respiratory Rate 16 08/23/2021 3:22 PM CDT Oxygen Saturation 97% 08/23/2021 3:22 PM CDT Inhaled Oxygen Concentration - - Weight - - Height - - Body Mass Index - - documented in this encounter Progress Notes * Giuseppe Salazar PA - 08/23/2021 3:21 PM CDT Assessment and Plan Diagnoses and all orders for this visit: Borderline hyperglycemia (Primary) Assessment & Plan: Resident has had elevated blood sugars her random blood testing. Will get a hemoglobin A1c. Benign prostatic hyperplasia with incomplete bladder emptying Assessment & Plan: History BPH he is on Hytrin continue the same. He is voiding. He denies any frequency urgency however the he has limited insight and recall. I he is incontinent at times Panlobular emphysema (CMS/HCC) (HCC) Assessment & Plan: Resident with COPD continue inhalers at this time. He has no increased productive cough no shortness of breath at rest. He has been afebrile. Stable Closed nondisplaced intertrochanteric fracture of left femur with routine healing, subsequent encounter Assessment & Plan: Fracture is healed he is weight-bearing as tolerated he needs standby assist you to his poor balance strengths coordination and safety awareness Subjective and Objective Patient ID: Lloyd Redman is a 71 y.o. male Allergies Allergen Reactions ??? Penicillins Hives Chief Complaint I am doing okay HPI Resident recently admitted to skilled post fracture. And multiple falls. He is now in a long-term care setting. I he is wheelchair dependent needs standby and assist with transfers. He is incontinentbowel bladder usually. His appetite is good. He has very limited insight recall due to his cognitive impairment. ROS No fever chills no sweats. No reported nausea vomiting no diarrhea. He is voiding. He has no increased cough congestion shortness of breath. He is wheelchair dependent needs assist with transfers and mobility. Does propel himself in the wheelchair. He has very limited insight and recall BP 130/66 Pulse 82 Temp 36.3 ??C (97.3 ??F) Resp 16 SpO2 97% PHYSICAL EXAM: He is up in a chair is hard hearing. Check his ears bilaterally has cerumen but can not visualize his TMs. His heart rate rhythm regular lungs diminished without wheeze rhonchi or rale or increased respiratory effort abdomen is benign soft and nontender bowel sounds are active extremities no edema no calftenderness his marked muscle wasting in the upper extremity is and legs. Motor function is symmetrical. He has no tremors. LAB/XRAY: Recent lab sodium 145 potassium 3.4 BUN creatinine 10/0.8 with a GFR in and 91 Blood sugar was 134 MEDICATION: Current Outpatient Medications: ??? acetaminophen (TYLENOL) [...] day, Disp: 180 tablet, Rfl: 3 ??? pantoprazole DR (PROTONIX) 40 mg EC [...] nightly, Disp: 30 tablet, Rfl: 11 ??? terazosin (HYTRIN) 10 mg capsule, Take [...] by mouth nightly, Disp: , Rfl: ??? miconazole (SECURA THICK) 2 % cream, Apply topically 2 (two) times a day (Patient not taking: No sig reported), Disp: 28.35 g, Rfl: 0 ??? multivit,tx with iron,minerals (THERA-M ORAL), Take 1 tablet by mouth every morning , Disp: , Rfl: ??? mupirocin (BACTROBAN) 2 % cream, Apply topically 3 (three) times a day, Disp: , Rfl: ??? senna 1.76 mg/mL syrup, Administer 5 mL (8.8 mg total) per feeding tube 2 (two) times a day, Disp: 100 mL, Rfl: 0 ??? traZODone (DESYREL) 100 mg tablet, Take 1 tablet (100 mg total) by mouth nightly (Patient not taking: No sig reported), Disp: 30 tablet, Rfl: 0 LORI Villaseñor documented in this encounter Miscellaneous Notes * Assessment & Plan Note - Giuseppe Salazar PA - 08/23/2021 3:32 PM CDT Associated Problem(s): Closed nondisplaced intertrochanteric fracture of left femur (HCC) Fracture is healed he is weight-bearing as tolerated he needs standby assist you to his poor balance strengths coordination and safety awareness * Assessment & Plan Note - Giuseppe Salazar PA - 08/23/2021 3:32 PM CDT Associated Problem(s): COPD (chronic obstructive pulmonary disease) ([facility]) Resident with COPD continue inhalers at this time. He has no increased productive cough no shortness of breath at rest. He has been afebrile. Stable * Assessment & Plan Note - Giuseppe Salazar PA - 08/23/2021 3:31 PM CDT Associated Problem(s): Benign prostatic hyperplasia with lower urinary tract symptoms History BPH he is on Hytrin continue the same. He is voiding. He denies any frequency urgency however the he has limited insight and recall. I he is incontinent at times * Assessment & Plan Note - Giuseppe Salazar PA - 08/23/2021 3:29 PM CDT Associated Problem(s): Borderline hyperglycemia Resident has had elevated blood sugars her random blood testing. Will get a hemoglobin A1c. documented in this encounter Plan of Treatment Not on file documented as of this encounter Visit Diagnoses Diagnosis Borderline hyperglycemia- Primary Benign prostatic hyperplasia with incomplete bladder emptying Panlobular emphysema (HCC) Other emphysema Closed nondisplaced intertrochanteric fracture of left femur with routine healing, subsequent encounter documented in this encounter Additional Health Concerns Infection Onset Date Last Indicated Resolved Time MDR gram neg/ESBL Comment:06/16/2021 IP Review - Pt with scrotal abscess, but is not actively draining (last documented draining on 06/14). Pt remains intubated so requires trach aspirate for isolation discontinuation. Provider notified. Amanda Walker RN 12/19/2019 12/19/2019 documented as of this encounter Care Teams Terra Cotta Setter Relationship Specialty Start Date End Date Jean-Claude Crawford MD [address] [facility] [address] [place] [address] PCP - General Family Medicine 04/12/20 06/12/22 Jean-Claude Crawford MD [address] [facility] [address] [place] [address] Family Medicine 04/12/20 Jessie Delvalle MD [address] [facility] [address] [place] [address] Orthopedic Surgery 07/07/21 Sandip Barone MD [address] [address] Consulting Physician Neurosurgery 07/07/21 documented as of this encounter
--- OUTSIDE RECORDS SUMMARY | 2024-04-08 10:35 | XMS_ITS | Encounter Summary ---
Author Organization [facility] Address [address] [facility] [address] [facility] [address] [place] [address] Care Team Providers Care Mobile Electronics Installer Name Role Phone Jean-Claude Crawford MD Primary Care Provider Jean-Claude Crawford MD Unavailable [phone] Jessie Delvalle MD Unavailable + Sandip Barone MD Unavailable [phone] Encounter Details Date Type Department Care Team (Latest Contact Info) Description 07/28/2021 NH/SNF Visit [facility] Post Acute Care [address] [facility] [address], [place] [address] Giuseppe Salazar, LORI [address] [place] [address] Traumatic brain injury, with loss of consciousness of 30 minutes or less, subsequent encounter (Primary Dx); Paroxysmal atrial fibrillation (CMS/HCC) (HCC); Closed nondisplaced intertrochanteric fracture of [...] often do you attend roman catholic or zoroastrianism serv ices? Never 06/16/2021 Do you belong [...] slept in a longterm (including now)? 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 CARE CLINICAL NURSE SPECIALIST Gender Identity Not on file Sexual Orientation Not on file documented as of this encounter Last Filed Vital Signs Vital Sign Reading Time Taken Comments Blood Pressure 134/74 07/28/2021 12:04 PM CDT Pulse 75 07/28/2021 12:04 PM CDT Temperature 36.7 ??C (98 ??F) 07/28/2021 12:04 PM CDT Respiratory Rate 18 07/28/2021 12:04 PM CDT Oxygen Saturation 98% 07/28/2021 12:04 PM CDT Inhaled Oxygen Concentration - - Weight - - Height - - Body Mass Index - - documented in this encounter Progress Notes * Giuseppe Salazar PA - 07/28/2021 12:04 PM CDT Assessment and Plan Diagnoses and all orders for this visit: Traumatic brain injury, with loss of consciousness of 30 minutes or less, subsequent encounter (Primary) Assessment & Plan: Resident is status post fall at home with a bleed and brain. He has some increased confusion since that fall. He has had no change in his condition since that fall. Discussed with his charge nurse. [facility] and his at length. There has been [...] has had no issues with incontinence. He isvoiding his says he has always been continent [...] in agreement we know the risk benefits. Paroxysmal atrial fibrillation (CMS/HCC) (HCC) Assessment & Plan: Resident with a history of atrial fib [...] this he and anticoagulants at this time. Closed nondisplaced intertrochanteric fracture of left femur with routine healing, subsequent encounter Assessment & Plan: Resident is weight-bearing as tolerated his incisions are well healed. Breann are out. He is doing well with [...] well. I he may need intermediate her long-term support after finishing his rehab. Subjective and Objective Patient ID: Lloyd Redman is a 71 y.o. male Allergies Allergen Reactions ??? Penicillins Hives Chief Complaint He is I need to go to the bathroom HPI And to get up on his own. I encouraged him to stay and some and some assistance. See assessment and plan a above. ROS He has had no cough or congestion chest pain shortness of breath orthopnea PND he is mildly confused he has decreased visual acuity. His hearing is diminished but functional speech is clear. He has no difficulty chewing swallowing as he has had no nausea or vomiting his bowels are active he is voiding. His said he is usually on Imodium at home because of overactive bowels. He has not had that issue here at this time. His sleep is adequate his cognition he has limited insight and safety awareness. BP 134/74 Pulse 75 Temp 36.7 ??C (98 ??F) Resp 18 SpO2 98% PHYSICAL EXAM: I he sitting on the side of the bed he is alert but confused. His hearing is diminished his vision is diminished. His sclera nonicteric is mouth is moist speech is clear heart rate and rhythm regular at this time lungs diminished without wheeze rhonchi or rale or increased respiratory effort. Abdomen is protruded soft nontender bowel sounds are active incisions left hip are well healed. Motor functions grossly symmetrical negative Adal bilaterally and no edema. LAB/XRAY: None for review MEDICATION: Current Outpatient [...] morning), Disp: 30 tablet, Rfl: 0 ??? metoprolol [...] skin daily for28 days (Patient not taking: Reported on 07/28/2021), Disp: 11.2 mL, Rfl: 0 ??? miconazole (SECURA THICK) 2 % cream, Apply topically 2 (two) times a day (Patient not taking: Reported on 07/28/2021), Disp: 28.35 g, Rfl: 0 ??? pantoprazole DR (PROTONIX) 40 mg EC [...] care, counseling and coordination of care : 55 minutes. Discussed with charge nurse, med tech, resident spouse and resident. See assessment and plan above for details. LORI Villaseñor Cosigned by Traci Minaya MD at 07/30/2021 4:35 PM CDT documented in this encounter Miscellaneous Notes * Assessment & Plan Note - Giuseppe Salazar PA - 07/28/2021 12:44 PM CDT Associated Problem(s): Closed nondisplaced intertrochanteric fracture of left femur (HCC) Resident is weight-bearing as tolerated his incisions are well healed. Breann are out. He is doing well with [...] well. I he may need intermediate her long-term support after finishing his rehab. * Assessment & Plan Note - Giuseppe Salazar PA - 07/28/2021 12:42 PM CDT Associated Problem(s): Atrial fibrillation (CMS/HCC) (HCC) Resident with a history of atrial fib [...] this he and anticoagulants at this time. * Assessment & Plan Note - Giuseppe Salazar PA - 07/28/2021 12:22 PM CDT Associated Problem(s): TBI (traumatic brain injury) ([facility]) Resident is status post fall at home with a bleed and brain. He has some increased confusion since that fall. He has had no change in his condition since that fall. Discussed with his charge nurse. [facility] and his at length. There has been [...] has had no issues with incontinence. He isvoiding his says he has always been continent [...] in agreement we know the risk benefits. documented in this encounter Plan of Treatment Not on file documented as of this encounter Visit Diagnoses Diagnosis Traumatic brain injury, with loss of consciousness of 30 minutes or less, subsequent encounter- Primary Paroxysmal atrial fibrillation (CMS/HCC) (HCC) Atrial fibrillation Closed nondisplaced intertrochanteric fracture of left femur [...] documented as of this encounter Care Teams Mobile Electronics Installer Relationship Specialty Start Date End Date Jean-Claude Crawford MD [address] [place] [address] PCP - General Family Medicine 04/12/20 06/12/22 Jean-Claude Crawford MD [address] [place] [address] Family Medicine 04/12/20 Jessie Delvalle MD [address] [place] [address] Orthopedic Surgery 07/07/21 Sandip Barone MD [address] [address] Consulting Physician Neurosurgery 07/07/21 documented as of this encounter
--- OUTSIDE RECORDS SUMMARY | 2024-04-08 10:35 | XMS_ITS | Encounter Summary ---
Author Organization [facility] Address [address] [place] [address] Care Team Providers Care Care Program Resident Name Role Phone Jean-Claude Crawford MD Primary Care Provider Jean-Claude Crawford MD Unavailable [phone] Jessie Delvalle MD Unavailable + Sandip Barone MD Unavailable [phone] Encounter Details Date Type Department Care Team (Late st Contact Info) Description 07/28/2021 Telephone [facility] Cardiology [address] [place] [address] Abiodun Novak MD [address] [facility] [address] [place] [address] Social History Tobacco Use Types [...] Never 06/16/2021 How often do you attend anabaptism or bahai serv ices? Never 06/16/2021 Do you belong [...] slept in a prison (including now)? 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 Gender Identity Not on file Sexual Orientation Not on file documented as of this encounter Miscellaneous Notes * Telephone Encounter - Nuzhat Alva - 07/31/2021 11:04 AM CDT Called pt patriciaw verbally understood she stated they will be here * Telephone Encounter - Nuzhat Alva - 07/28/2021 11:23 AM CDT Called pt to update no ans LVM * Telephone Encounter - Nuzhat Alva - 07/28/2021 11:19 AM CDT Called scheduling testing has been canceled * Telephone Encounter - Abiodun Novak MD - 07/28/2021 11:03 AM CDT cancel * Telephone Encounter - Nuzhat Alva - 07/28/2021 10:54 AM CDT ----- Message from Dali Keller sent at 07/28/2021 10:50 AM CDT ----- Regarding: FW: 08/02/21 - Ashly Novak This echo was ordered when last seen in January. The patient was seen in ER / Hospital and had Echorecently done 06/13/21 - does this still need to be done or can it be cancelled? Please advise, ----- Message ----- From: Dali Keller Sent: 01/26/2021 10:53 AM CDT To: Dali Keller Subject: 08/02/21 - Echo - Kishore ----- Message ----- From: Tanja Storm MA Sent: 01/26/2021 10:41 AM CDT To: Dali Keller Subject: Precert Echo doppler 08/02/2021 @ 11:00 [employer] documented in this encounter Plan of Treatment [...] documented as of this encounter Care Teams Care Program Resident Relationship Specialty Start Date End Date Jean-Claude Crawford MD [address] [facility] [address] [place] [address] PCP - General Family Medicine 04/12/20 06/12/22 Jean-Claude Crawford MD [address] [facility] [address] [place] [address] Family Medicine 04/12/20 Jessie Delvalle MD [address] [facility] [address] [place] [address] Orthopedic Surgery 07/07/21 Sandip Barone MD [address] [address] Consulting Physician Neurosurgery 07/07/21 documented as of this encounter
--- OUTSIDE RECORDS SUMMARY | 2024-04-08 10:35 | XMS_ITS | Encounter Summary ---
Author Organization [facility] Address [address] [place] [address] Care Team Providers Care Supervisor Wire Rope Fabrication Name Role Phone Jean-Claude Crawford MD Primary Care Provider Jean-Claude Crawford MD Unavailable [phone] Jessie Delvalle MD Unavailable + Sandip Barone MD Unavailable [phone] Reason for Visit * Reason Onset Date Comments Cellulitis 07/14/2021 Increase in eryt stanley,warmth at surgical incision site x 1d, orders for doxycycline 100 mg po b.I.d x7d, bactroban oint daily x 7 d, dry dressing. Notify prn. Encounter Details Date Type Department Care Team (Late st Contact Info) Description 07/14/2021 Documentation [facility] Post Acute Care [address] [id number] Traci Minaya MD [address] [place] [address] Cellulitis (Increase in erythema,warmth at surgical incision site x 1d, orders for doxycycline 100 mg po b.I.d x7d, bactroban oint daily x 7 d, dry dressing. Notify prn.) Social History Tobacco Use Types Packs/Day Years [...] Never 06/16/2021 How often do you attend yarsani or catholic serv ices? Never 06/16/2021 Do you belong to any clubs o r organizations such as yarsani groups, unions, fraternal or athletic groups, or [...] place to sleep or slept in a long-term (including now)? No 06/16/2021 Sex and Gender Information Value Date Recorded Sex Assigned at Not on file Legal Sex Male 9:10 PM JUICE TESTER Gender Identity Not on file Sexual Orientation Not on file documented as of this encounter Progress Notes * Traci Minaya MD - 07/14/2021 1:19 PM CDT Returned phone call: Cellulitis surgical incision site. documented in this encounter Plan of Treatment [...] as of this encounter Care Teams Supervisor Wire Rope Fabrication Relationship Specialty Start Date End Date Jean-Claude Crawford MD [address] [address] PCP - General Family Medicine 04/12/20 06/12/22 Jean-Claude Crawford MD [address] [address] Family Medicine 04/12/20 Jessie Delvalle MD [address] [address] Orthopedic Surgery 07/07/21 Sandip Barone MD [facility] [address] [address] Consulting Physician Neurosurgery 07/07/21 documented as of this encounter
--- OUTSIDE RECORDS SUMMARY | 2024-04-08 10:35 | XMS_ITS | Encounter Summary ---
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 Name Role Phone Jean-Claude Crawford MD Primary Care Provider Jean-Claude Crawford MD Unavailable [phone] Jessie Delvalle MD Unavailable + Sandip Barone MD Unavailable [phone] Encounter Details Date Type Department Care Team (Latest Contact Info) Description 07/11/2021 NH/SNF Visit [facility] Post Acute Care [address] [facility] [address] [facility] [address] [place] [id number] Traci Minaya MD [address] [place] [address] Encephalopathy (Primary Dx); Panlobular emphysema (CMS/HCC) (HCC); Chronic systolic heart failure (CMS/HCC) (HCC); Paroxysmal atrial fibrillation (CMS/HCC) (HCC); Dysphagia, unspecified type; Closed nondisplaced intertrochanteric fracture of left femur with routine healing, subsequent encounter; Scrotal abscess; Hypertension, unspecified type; Benign prostatic hyperplasia with lower urinary tract symptoms, symptom details unspecified; Heartburn; Acute delirium; Thrombocytopenia (CMS/HCC) (HCC) Social History Tobacco Use Types [...] Never 06/16/2021 How often do you attend jainism or mormonism serv ices? Never 06/16/2021 Do you belong to any clubs o r organizations such as jainism groups, unions, fraternal or athletic groups, or [...] slept in a residential (including now)? 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 Residential Facility Initial Visit History and Physical ASSESSMENT/PLAN: Diagnoses and all orders for this visit: Encephalopathy (Primary) Assessment & Plan: Traumatic brain injury, with SAH, intraventricular hemorrhage. [...] he was treated with thiamine and multivitamin. Panlobular emphysema ([facility]/HCC) ([facility]) Assessment & Plan: Continue incentive spirometry, Breo Ellipta daily. Chronic systolic heart failure ([facility]/HCC) ([facility]) Assessment & Plan: Chronic systolic heart failure, Follows with cardiology, He is on asymptomatic mild left ventricular dysfunction with tachycardia, most recent EF was 70-75%Metoprolol was increased to 100 mg p.o. b.i.d., home dose of lisinopril was held and restarted. Paroxysmal atrial fibrillation (CMS/HCC) ([facility]) Assessment & Plan: Treated with amiodarone drip and transition to metoprolol 100 mg p.o. b.i.d. with RVR in 160s, -treated with 5 mg IV metoprolol and Ringer lactate bolus 1 L. Syncope workup was done with orthostatics, and TTE which was unrevealing, orthostatics were positive received 2 L of fluid, carotid duplex showed less than 50% stenosis bilaterally. Dysphagia, unspecified type Assessment & Plan: Dysphagia diet 1. Diet with no liquids NG tube was placed and removed on 06/29 , he was on 2 L IV fluid hydration, - small-bowel follow-through was done on 06/30 and order removed 07/01 he is on thin liquids, takes medications crushed in pureed and regular thin liquids. Closed nondisplaced intertrochanteric fracture of left femur with routine healing, subsequent encounter Assessment & Plan: Left IT fracture, he had a MRI of the left hip which showed a nondisplaced proximal IT fracture with intramedullary nailing of femur intertrochanteric left upper leg, with orthopedic intervention on 07/04, - with left lower extremity weight-bearing as tolerated. - he was treated with Ancef preoperatively. - daily dry dressing changes and alice are to be removed on 07/25, - follow-up with Dr. Delvalle. -Daily dry dressing. Weight-bearing as tolerated -pain management is with Tylenol 650 mg p.o. q.4 hours p.r.n. for pain, Lovenox for DVT prophylaxis. Scrotal abscess Assessment & Plan: Bacteroides fragilis, scrotal abscess and cellulitis, he had ultrasound of the scrotum on 06/17 which showed left hydrocele and cellulitis. CT of the pelvis with contrast, was positive for small left scrotal hydrocele and negative for softtissue gas and positive for nondisplaced trochanteric fracture. Urology were consulted and suggested a 10 day course of antibiotics. Completed antibiotic treatment with Flagyl and Bactrim. Hypertension, unspecified type Assessment & Plan: Holding lisinopril 40 mg resume when sbp> 130/80 mmhg ,continue pravastatin 40 mg daily. Benign prostatic hyperplasia with lower urinary tract symptoms, symptom details unspecified Assessment & Plan: terazosin 10 mg p.o. nightly. Heartburn Assessment & Plan: Continue pantoprazole 40 mg p.o. daily. Acute delirium Assessment & Plan: Delirium precautions, maintain sleep wake cycle, continue trazodone 100 mg p.o. nightly. Thrombocytopenia (CMS/HCC) (HCC) Assessment & Plan: Thrombocytopenia, this is thought in the setting of surgery and reactive, Anemia, hemoglobin baseline 10-12 postop 10.3. SUBJECTIVE: Patient is a 71 y.o. male with chief complaint of left greater intertrochanteric fracture. HPI: Lloyd Redman was hospitalized from 06/11/2021 until . Medical history significant for hypercholesterolemia, hypertension, atrial fibrillation, chronic systolic heart failure, TBI, SAH. He is a 71-year-old male who was found to have traumatic SAH and IVH following a fall he was reaching overhead for something in the closet and lost his balance falling and striking his head. He had a unwitnessed fall the week prior he was taken to [facility] via EMS on 06/08 for possible syncopalepisodes he was found to have involuntary movements and a stab mass for which he was loaded with Keppra and plan was for EEG the course of this is unclear he was also started on CIWA protocol with Angie rium. MRI later revealed SAH, IV H small high PH for which he was ultimately transferred to [facility] for neurosurgery consultation. On 06/12 he was noted not following commands and was somnolent with worsening following Ativan administration for high CIWA score he was transferred from floor to step-down unit for close observation. Neurosurgery were consulted Medicine were consulted for syncope workup management for multiple comorbidities. He has ongoing somnolence, lethargy and medicine were consulted there was risk for airway compromise with impaired level of consciousness, a nasal trumpet was placed. He was transferred to ICU for closer monitoring. Past Medical History: Diagnosis Date ??? Acute [...] Cancer Father ??? Anesthesia problems Neg Hx Prior to Admission medications Medication Sig Start Date End Date Taking? Authorizing Provider acetaminophen (TYLENOL) 325 mg tablet Take 2 tablets (650 mg total) by mouth every 4 (four) hours as needed for pain 07/07/21 Julieta Tirado NP albuterol 2.5 mg /3 mL (0.083 %) nebulizer solution Take 1.5 mL (1.25 mg total) by nebulization every 6 (six) hours as needed for wheezing 07/07/21 Julieta Tirado NP cholecalciferol (VITAMIN D-3) 5,000 unit tablet Take 5,000 Units by mouth every morning Provider, MD Manish enoxaparin (LOVENOX) 40 mg/0.4 mL syringe Inject 0.4 mL (40 mg total) under the skin daily for 28 days 07/07/21 08/04/21 Julieta Tirado NP fluticasone furoate-vilanteroL (BREO ELLIPTA) 100-25 mcg/dose diskus inhaler Inhale 1 puff daily Rinse mouth with water after use. Do not swallow. 07/07/21 Julieta Tirado NP folic acid (FOLVITE) 1 mg tablet Take 1 tablet (1 mg total) by mouth daily Patient taking differently: Take 1 mg by mouth every morning 02/22/20 01/25/21 Abiodun Rodgers MD metoprolol (LOPRESSOR) 100 mg tablet Take 1 tablet (100 mg total) by mouth 2 (two) times a day 01/30/21 01/30/22 Abiodun Novak MD miconazole (SECURA THICK) 2 % cream Apply topically 2 (two) times a day 07/07/21 Julieta Tirado NP multivit,tx with iron,minerals (THERA-M ORAL) Take 1 tablet by mouth every morning ProviderManish MD pantoprazole DR (PROTONIX) 40 mg EC tablet Take 1 tablet (40 mg total) by mouth daily Patient taking differently: Take 40 mg by mouth every morning 02/23/20 02/22/21 Abiodun Rodgers MD pravastatin (PRAVACHOL) 40 mg tablet Take 40 mg by mouth daily ProviderManish MD ramelteon (ROZEREM) 8 mg tablet Take 1 tablet (8 mg total) by mouth nightly 07/07/21 07/07/22 Julieta Tirado NP senna 1.76 mg/mL syrup Administer 5 mL (8.8 mg total) per feeding tube 2 (two) times a day 07/07/21 Julieta Tirado NP terazosin (HYTRIN) 10 mg capsule Take 1 capsule (10 mg total) by mouth nightly Patient taking differently: Take 10 mg by mouth nightly 02/22/20 01/25/21 Abiodun Rodgers MD thiamine (VITAMIN B1) 100 mg tablet Take 100 mg by mouth every morning ProviderManish MD traZODone (DESYREL) 100 mg tablet Take 1 tablet (100 mg total) by mouth nightly 07/07/21 08/06/21 Julieta Tirado NP Review of Systems Review of Systems Constitutional: Negative for activity change, appetite change and unexpected weight change. HENT: Negative for congestion, dental problem, ear discharge, ear pain, mouth sores and sore throat. Dysphagia. Eyes: Negative for discharge. Respiratory: Negative for apnea, cough, chest tightness, shortness of breath, wheezing and stridor. COPD. Cardiovascular: Negative for chest pain, palpitations and leg swelling. Gastrointestinal: Negative for abdominal distention, blood in stool, constipation, diarrhea, nausea, rectal pain and vomiting. Endocrine: Negative for cold intolerance and heat intolerance. Genitourinary: Negative for flank pain. Musculoskeletal: Negative for neck pain. Left femur fracture repair. Neurological: Negative for dizziness, seizures and syncope. TBI. SAH. Psychiatric/Behavioral: Negative for behavioral problems, confusion, decreased concentration, hallucinations and suicidal ideas. The patient is not hyperactive. OBJECTIVE: Vitals: Arrival Vitals Temp Pulse Resp BP SpO2 Temp src Heart Rate Source Patient Position BP Location FiO2 (%) Most Recent : Physical exam: Physical Exam Vitals and nursing note reviewed. [...] Neurological: Mental Status: He is alert. Comments: Alert, oriented to self,place,person. Psychiatric: Behavior: Behavior normal. Thought Content: Thought content normal. Judgment: Judgment normal. Epic Records Reviewed Care discussed with nursing staff No results found. Prior Signed: Traci Minaya MD Billing - > 45 minutes of time were spent in reviewing chart, hospital medical records, labs, imaging, where indicated, returning phone calls including face to face visit with patient and reviewing care plan with staff. documented in this encounter Miscellaneous Notes * Assessment & Plan Note - Traci Minaya MD - 07/13/2021 2:10 PM CDTAssociated Problem(s): Thrombocytopenia (HCC) Thrombocytopenia, this is thought in the setting of surgery and reactive, Anemia, hemoglobin baseline 10-12 postop 10.3. * Assessment & Plan Note - Traci Minaya MD - 07/13/2021 2:08 PM CDTAssociated Problem(s): Acute delirium Delirium precautions, maintain sleep wake cycle, continue trazodone 100 mg p.o. nightly. * Assessment & Plan Note - Traci Minaya MD - 07/13/2021 2:07 PM CDTAssociated Problem(s): Heartburn Continue pantoprazole 40 mg p.o. daily. * Assessment & Plan Note - Traci Minaya MD - 07/13/2021 2:07 PM CDTAssociated Problem(s): Benign prostatic hyperplasia with lower urinary tract symptoms terazosin 10 mg p.o. nightly. * Assessment & Plan Note - Traci Minaya MD - 07/13/2021 2:06 PM CDTAssociated Problem(s): Hypertension Holding lisinopril 40 mg resume when sbp> 130/80 mmhg ,continue pravastatin 40 mg daily. * Assessment & Plan Note - Traci Minaya MD - 07/13/2021 2:04 PM CDTAssociated Problem(s): Scrotal abscess Bacteroides fragilis, scrotal abscess and cellulitis, he had ultrasound of the scrotum on 06/17 which showed left hydrocele and cellulitis. CT of the pelvis with contrast, was positive for small left scrotal hydrocele and negative for softtissue gas and positive for nondisplaced trochanteric fracture. Urology were consulted and suggested a 10 day course of antibiotics. Completed antibiotic treatment with Flagyl and Bactrim. * Assessment & Plan Note - Traci Minaya MD - 07/13/2021 2:03 PM CDTAssociated Problem(s): Closed nondisplaced intertrochanteric fracture of left femur (HCC) Left IT fracture, he had a MRI of the left hip which showed a nondisplaced proximal IT fracture with intramedullary nailing of femur intertrochanteric left upper leg, with orthopedic intervention on 07/04, - with left lower extremity weight-bearing as tolerated. - he was treated with Ancef preoperatively. - daily dry dressing changes and alice are to be removed on 07/25, - follow-up with Dr. Delvalle. -Daily dry dressing. Weight-bearing as tolerated -pain management is with Tylenol 650 mg p.o. q.4 hours p.r.n. for pain, Lovenox for DVT prophylaxis. * Assessment & Plan Note - Traci Minaya MD - 07/13/2021 2:02 PM CDTAssociated Problem(s): Dysphagia Dysphagia diet 1. Diet with no liquids NG tube was placed and removed on 06/29 , he was on 2 L IV fluid hydration, - small-bowel follow-through was done on 06/30 and order removed 07/01 he is on thin liquids, takes medications crushed in pureed and regular thin liquids. * Assessment & Plan Note - Traci Minaya MD - 07/13/2021 2:00 PM CDTAssociated Problem(s): Atrial fibrillation (CMS/HCC) (HCC) Treated with amiodarone drip and transition to metoprolol 100 mg p.o. b.i.d. with RVR in 160s, -treated with 5 mg IV metoprolol and Ringer lactate bolus 1 L. Syncope workup was done with orthostatics, and TTE which was unrevealing, orthostatics were positive received 2 L of fluid, carotid duplex showed less than 50% stenosis bilaterally. * Assessment & Plan Note - Traci Minaya MD - 07/13/2021 1:59 PM CDTAssociated Problem(s): Chronic systolic heart failure (CMS/HCC) ([facility]) Chronic systolic heart failure, Follows with cardiology, He is on asymptomatic mild left ventricular dysfunction with tachycardia, most recent EF was 70-75%Metoprolol was increased to 100 mg p.o. b.i.d., home dose of lisinopril was held and restarted. * Assessment & Plan Note - Traci Minaya MD - 07/13/2021 1:58 PM CDTAssociated Problem(s): COPD (chronic obstructive pulmonary disease) ([facility]) Continue incentive spirometry, Breo Ellipta daily. * Assessment & Plan Note - Traci Minaya MD - 07/13/2021 1:56 PM CDTAssociated Problem(s): Encephalopathy Traumatic brain injury, with SAH, intraventricular hemorrhage. [...] he was treated with thiamine and multivitamin. documented in this encounter Plan of Treatment Not on file documented as of this encounter Visit Diagnoses Diagnosis Encephalopathy- Primary Unspecified encephalopathy Panlobular emphysema (HCC) Other emphysema Chronic systolic heart failure (CMS/HCC) (HCC) Chronic systolic heart failure Paroxysmal atrial fibrillation (CMS/HCC) (HCC) Atrial fibrillation Dysphagia, unspecified type Closed nondisplaced intertrochanteric fracture of left femur with routine healing, subsequent encounter Scrotal abscess Other inflammatory disorder of male genital organs Hypertension, unspecified type Benign prostatic hyperplasia with lower urinary tract symptoms, symptom details unspecified Heartburn Acute delirium Delirium due to conditions classified elsewhere Thrombocytopenia (HCC) Unspecified thrombocytopenia documented in this encounter Additional Health Concerns Infection Onset Date Last Indicated Resolved Time MDR gram neg/ESBL Comment:06/16/2021 IP Review - Pt with scrotal abscess, but is not actively draining (last documented draining on 06/14). Pt remains intubated so requires trach aspirate for isolation discontinuation. Provider notified. 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
--- OUTSIDE RECORDS SUMMARY | 2024-04-08 10:36 | XMS_ITS | Encounter Summary ---
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 - 07/07/2021 9:55 PM CDT Hospital Encounter [address] [id number] Seth Kiser MD [address] [id number] Darrel Wolf MD [address] [facility] [phone] [place], [place] [id number] Intraventricular hemorrhage (CMS/HCC) (HCC) (Primary Dx); Diagnosis unknown; Closed nondisplaced intertrochanteric fracture of left femur, initial encounter (HCC); Closed nondisplaced intertrochanteric fracture of left femur with routine healing, subsequent encounter Discharge Disposition: Discharge to SNF Social [...] Never 06/16/2021 How often do you attend gnosticism or sabianism serv ices? Never 06/16/2021 Do you belong to any clubs o r organizations such as gnosticism groups, unions, fraternal or athletic groups, or [...] slept in a jail (including now)? 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 Gender Identity Not on file Sexual Orientation Not on file documented as of this encounter Last Filed Vital Signs Vital Sign Reading Time Taken Comments Blood Pressure 136/76 07/07/2021 8:02 PM CDT Pulse 74 07/07/2021 8:02 PM CDT Temperature 36.4 ??C (97.5 ??F) 07/07/2021 8:02 PM CD T Respiratory Rate 16 07/07/2021 8:02 PM CDT Oxygen Saturation 92% 07/07/2021 8:02 PM CDT Inhaled Oxygen Concentration - - Weight 89.7 kg (197 lb 12 oz) 07/07/2021 8:30 AM CDT Height 180.3 cm (5' 10.98 ) 06/13/2021 2:[address] Body Mass Index 27.59 06/24/2021 6:29 PM CDT documented in this encounter Discharge Diagnoses Diagnosis Traumatic hemorrhage of cerebrum, unspecified, with loss of consciousness of unspecified duration, initial encounter (HCC) - TRAUMATIC HEMORRHAGE OF CEREBRUM, UNSPECIFIED, WITH LOSS OF CONSCIOUSNESS OF UNSPECIFIED DURATION, I Nondisplaced fracture of greater trochanter of left femur, initial encounter for closed fracture (HCC) - NONDISPLACED FRACTURE OF GREATER TROCHANTER OF LEFT FEMUR, INITIAL ENCOUNTER FOR CLOSED FRACTURE Encephalopathy, unspecified - ENCEPHALOPATHY, UNSPECIFIED Hyperosmolality and hypernatremia - HYPEROSMOLALITY AND HYPERNATREMIA Hyperosmolality and/or hypernatremia Ventricular tachycardia (HCC) - VENTRICULAR TACHYCARDIA Paroxysmal ventricular tachycardia Anuria and oliguria - ANURIA AND OLIGURIA Oliguria and anuria Thrombocytopenia, unspecified (HCC) - THROMBOCYTOPENIA, UNSPECIFIED Thrombocytopenia, unspecified Chronic systolic (congestive) heart failure ([facility]) - CHRONIC SYSTOLIC (CONGESTIVE) HEART FAILURE Hypertensive heart disease with heart failure (CMS/HCC) ([facility]) - HYPERTENSIVE HEART DISEASE WITH HEART FAILURE Unspecified hypertensive heart disease with heart failure Hypo-osmolality and hyponatremia - HYPO-OSMOLALITY AND HYPONATREMIA Acute posthemorrhagic anemia - ACUTE POSTHEMORRHAGIC ANEMIA Traumatic subarachnoid hemorrhage with loss of consciousness of unspecified duration, initial encounter ([facility]) - TRAUMATIC SUBARACHNOID HEMORRHAGE WITH LOSS OF CONSCIOUSNESS OF UNSPECIFIED DURATION, INITIAL ENCOUN Alcohol dependence with withdrawal, unspecified ([facility]) - ALCOHOL DEPENDENCE WITH WITHDRAWAL, UNSPECIFIED Chronic obstructive pulmonary disease, unspecified ([facility]) - CHRONIC OBSTRUCTIVE PULMONARY DISEASE, UNSPECIFIED Nutritional anemia, unspecified - NUTRITIONAL ANEMIA, UNSPECIFIED Permanent atrial fibrillation ([facility]) ([facility]) - PERMANENT ATRIAL FIBRILLATION Atrial fibrillation Chronic respiratory failure with hypoxia ([facility]) ([facility]) - CHRONIC RESPIRATORY FAILURE WITH HYPOXIA Postconcussional syndrome - POSTCONCUSSIONAL SYNDROME Postconcussion syndrome Contact with and (suspected) exposure to covid-19 - CONTACT WITH AND (SUSPECTED) EXPOSURE TO COVID-19 Fall on same level, unspecified, initial encounter - FALL ON SAME LEVEL, UNSPECIFIED, INITIAL ENCOUNTER Unspecified place in unspecified non-institutional (private) residence as the place of occurrence of the external cause - UNSPECIFIED PLACE IN UNSPECIFIED NON-INSTITUTIONAL (PRIVATE) RESIDENCE THE PLACE OF OCCURRENCE OF Nicotine dependence, cigarettes, uncomplicated - NICOTINE DEPENDENCE, CIGARETTES, UNCOMPLICATED Legal blindness, as defined in [place] - LEGAL BLINDNESS, DEFINED IN [place] Hypomagnesemia - HYPOMAGNESEMIA Disorders of magnesium metabolism Benign prostatic hyperplasia without lower urinary tract symptoms - BENIGN PROSTATIC HYPERPLASIA WITHOUT LOWER URINARY TRACT SYMPTOMS Gastro-esophageal reflux disease without esophagitis - GASTRO-ESOPHAGEAL REFLUX DISEASE WITHOUT ESOPHAGITIS Hyperlipidemia, unspecified - HYPERLIPIDEMIA, UNSPECIFIED Dysphagia, unspecified - DYSPHAGIA, UNSPECIFIED Inflammatory disorders of scrotum - INFLAMMATORY DISORDERS OF SCROTUM Other disorders of electrolyte and fluid balance, not elsewhere classified - OTHER DISORDERS OF ELECTROLYTE AND FLUID BALANCE, NOT ELSEWHERE CLASSIFIED Hypokalemia - HYPOKALEMIA Hypopotassemia Bacteroides fragilis (b. fragilis) as the cause of diseases classified elsewhere - BACTEROIDES FRAGILIS [B. 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 - [facility] (CURRENT) USE OF ANTICOAGULANTS Long-term (current) use of anticoagulants Other meterman (current) drug therapy - OTHER [facility] (CURRENT) DRUG THERAPY Hydrocele, unspecified - HYDROCELE, UNSPECIFIED documented in this encounter Discharge Summaries * Julieta Tirado NP - 07/07/2021 4:16 PM CDT [facility] Geriatric Trauma Surgery Inpatient Discharge Summary This is a clinical resume for patient Jania Redman for attending Darrel Wolf,* Admission Date: 06/11/2021 Admitting Provider: Seth Kiser MD Discharge Date: 07/07/2021 Hospitalization: Total duration of encounter: 26 days Team: Geriatric Trauma Surgery Primary Care Provider: Jean-Claude Salazar MD Discharge Diagnosis(es): Active Problems: Hypercholesterolemia Hypertension Atrial fibrillation (CMS/HCC) (HCC) Chronic systolic heart failure (CMS/HCC) (HCC) TBI (traumatic brain injury) (CMS/HCC) (HCC) SAH (subarachnoid hemorrhage) (CMS/HCC) (HCC) Encephalopathy Acute delirium Scrotal abscess Closed nondisplaced intertrochanteric fracture of left femur (CMS/HCC) (HCC) Dysphagia Orthostatic hypotension Acute respiratory failure (HCC) Acute on chronic anemia Thrombocytopenia (CMS/HCC) (HCC) Resolved Problems: No resolved hospital problems. Hospital Course: Clinical Course: improved History of Present Illness: Jania Redman is a 71 y.o. 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 There was loss of consciousness. Of note, he had an unwitnessed fall the week prior. He was first??taken to [facility] via EMS on 06/08 aftersustaining fall with LOC at home. At [facility] the initial head??CT??was??negative and he was admitted overnight 06/08-06/09 for further evaluation and treatment of possible syncopal episodes. There was re ported involuntary movements and nystagmus for which he was loaded with Keppra and planned for EEG,the course of this is unclear. He had reportedly been started on CIWA protocol??with librium.??An MRI later revealed SAH, IVH, small IPH for which he was ultimately transferred to [facility]??as a neurosurgery primary patient??the evening of 06/11. Overnight 06/11-06/12 the patient was not following commands and was somnolent, worsening following??Ativan administration for high CIWA score. He was transferred from floor to stepdown unit??the morning of 06/12??for closer observation. NSGY consulted Medicine service for assistance with syncope work-up and management of multiple comorbidities. The patient had on going somnolence and lethargy throughout the??morning,??and on??Medicine consult's evaluation, there was concern for??being at risk for airway compromise with his impaired level of consciousness. 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 #Encephalopathy - Etiology seems to be??multifactorial with alcohol withdrawal (received??librium at OSH), TBI, hospital admission/delirium, possible Wernicke's?? -??s/p 9 days folic acid, 3 days 500 mg IV q8h, thiamine followed by 250 mg x5 days - Neurology consult - signed off - Delirium precautions - If worsening mental status, consider repeat infectious work-up and/or routine EEG - MVI daily and thiamine 100 mg daily indefinitely ?? #COPD #Acute on chronic respiratory failure - resolved - No home medications -??Extubated 06/18 - Patient arrived to floor on face tent - 06/30: on room air - Wean O2 for SpO2 goal 88-92% - Breo-Ellipta started 07/01 for maintenance - PRN albuterol - Incentive spirometry, acapella, CPT ?? #Chronic systolic heart failure - per Cardiology note from 01/25/21: asymptomatic mild LV dysfunction, suspect tachycardia mediated - Previously EF 45-50% (2020), now EF 70-75% as of 06/13 - Increased metoprolol to home dose 100 mg BID - Holding home lisinopril, restart after OR if appropriate ?? #Atrial fibrillation with RVR -??s/p amio gtt 06/13-06/14; will need outpatient f/u with Panelboard Operator - Metoprolol 100 mg BID for rate control (home dose) - 07/04 RVR 160s post op, 5mg IVP metop x 1, 1L LR bolus - Goal HR <120 - Telemetry ?? #Syncope/Orthostatic hypotension -??+ orthostatic symptoms as outpatient per and + orthostatics at OSH - TTE unrevealing -??Orthostatics positive 06/22 - Received 2 L fluid on 06/28-06/29 - Carotid duplex with less than 50% stenosis bilaterally ?? #Dysphagia due to TBI - On??dysphagia 1 diet with NO liquids - Continue calorie count x3 days to ensure adequate PO (initiated on 06/27, continue through 06/30), Nutrition following - NG tube placed for meds, removed by patient on 06/29 - Cognition poor requiring frequent redirection, repeat mBS pending - 2 L IVF completed 06/29 - SBFT placed 06/30, autoremoved by patient 07/01 - Assist 100% with all meals - final operations technician following - Calorie count - Repeat mBS pending 07/05 - passed for regular/thin liquids, DDI diet, meds crushed in puree ?? #Left IT fracture -??Ortho consult - Mobilization trial failed -??MRI of left hip (07/03) with nondisplaced proximal IT fx - Re-engaged Ortho on 07/03 - 07/04: OR with Ortho for L CMN - LLE WBAT - Valentine-op Ancef x 24 hrs completed - POD3 dressing change by Ortho (07/07/21) - Daily dry dressing changes - [place] to be removed 3 weeks post-op (07/25/21) - Pain control, PT/OT - Follow-up scheduled on 07/[address] Delvalle located at [facility] ? #Bacteroides fragilis scrotal abscess and cellulitis -??US scrotum (06/17) with left hydrocele and cellulitis - CT pelvis w contrast (06/17) positive for small left scrotal hydrocele, negative for soft tissue gas, and positive for non-displaced trochanteric fracture - Urology consulted:10 day course abx and should heal on its own, call if infection appears worse or changes - Clindamycin discontinued 06/20 - Continue flagyl and bactrim through 06/29 for a total of 12 days since susceptibilities are not back yet - f/u susceptibilities: susceptible to flagyl - Bactrim d/c'd 06/29, Flagyl completed 06/29 ?? #HTN -??Home lisinopril 40 mg daily on hold, restart as able - Home lasix 40 mg daily on hold, restart as able - Continue metoprolol - SBP goal <160 ?? #HLD - Continue pravastatin 40 mg daily ?? #Thrombocytopenia - Plt 137 on admission - No history of thrombocytopenia - 07/03: Plt 185 - 07/05: Plt 140 - 07/06: Plt 149 - likely reactive in setting of surgery - CBC as indicated ?? #ABLA on chronic anemia - History of anemia, baseline Hgb ~10-12 - Post op Hgb 10.3 (11.8) on 07/05 - 07/06: Hgb 9.4, asymptomatic - No further labs unless symptomatic ?? #DVT ppx: heparin subQ #Dispo: SNF vs rehab Operative Procedures Performed: INTRAMEDULLARY NAILING FEMUR - ANTEGRADE - INTERTROCHANTERIC (Left Leg Upper) Cholecystectomy Discharge Physical Exam: Discharge Condition: fair Pulse: 57 Resp: 16 BP: 144/89 Temp: 36.9 ??C (98.4 ??F) Weight: 89.7 kg (197 lb 12 oz) Constitutional: well developed, well nourished, cooperative and no apparent distress Head: normocephalic, without obvious abnormality, atraumatic Neurologic: oriented to person and place sensation intact all extremities demonstrated purposeful movement in all 4 extremities Eyes: pupils: Bilateral: reactive and size 2 mm, conjunctiva normal, left ptosis HENT: lips, mucosa, and tongue normal Neck: supple, symmetrical, trachea midline Chest: normal appearance, no masses or tenderness Respiratory: normal chest rise and fall, diminished breath sounds bilateral and on room air Cardiovascular: regular rate and irregularly irregular rhythm Gastrointestinal: non-distended and soft non-tender Musculoskeletal: extremities normal, warm and well-perfused and no edema Pulses: PT: bilateral normal Skin: skin color, texture, turgor normal. No rashes or lesions or incision L lateral hip incision intact. no active drainage or bleeding noted, dressing to mid thigh torn, alice intact, no drainageor erythema from incision Diet: Diet Instructions Adult Discharge Diet Diet Type: Return to previous diet Dysphagia 1 diet (pureed). This/Regular liquids. Crush meds and give in pureed/applesauce Discharge Disposition: Discharge to home or self care Code Status at Discharge: Full Activity: Activity Instructions Discharge Activity: Additional Activity Restrictions: Left lower extremity: Weight bearing as tolerated Discharge Activity: Walking -You may walk as tolerated. activity as tolerated Right Upper ExtremityWeight bearing as tolerated Left Upper ExtremityWeight bearing as tolerated Right Lower ExtremityWeight bearing as tolerated Left Lower ExtremityWeight bearing as tolerated Wound Care: Carries out hygiene routine on a regular basis and Requires assistance as directed and alice to be removed at SNF Discharge Medications: Your medication list START taking these medications acetaminophen 325 mg tablet Take 2 tablets (650 mg total) by mouth every 4 (four) hours as needed for pain Commonly known as: TYLENOL albuterol 2.5 mg /3 mL (0.083 %) nebulizer solution Take 1.5 mL (1.25 mg total) by nebulization every 6 (six) hours as needed for wheezing enoxaparin 40 mg/0.4 mL syringe Inject 0.4 mL (40 mg total) under the skin daily for 28 days Commonly known as: LOVENOX fluticasone furoate-vilanteroL 100-25 mcg/dose diskus inhaler Inhale 1 puff daily Rinse mouth with water after use. Do not swallow. Commonly known as: SILVIA ELLIPTA miconazole 2 % cream Apply topically 2 (two) times a day Commonly known as: SECURA THICK ramelteon 8 mg tablet Take 1 tablet (8 mg total) by mouth nightly Commonly known as: ROZEREM senna 1.76 mg/mL syrup Administer 5 mL (8.8 mg total) per feeding tube 2 (two) times a day traZODone 100 mg tablet Take 1 tablet (100 mg total) by mouth nightly Commonly known as: DESYREL CHANGE how you take these medications folic acid 1 mg tablet Take 1 tablet (1 mg total) by mouth daily Commonly known as: FOLVITE What changed: when to take this pantoprazole DR 40 mg EC tablet Take 1 tablet (40 mg total) by mouth daily Commonly known as: PROTONIX What changed: when to take this CONTINUE taking these medications cholecalciferol 5,000 unit tablet Commonly known as: VITAMIN D-3 metoprolol 100 mg tablet Take 1 tablet (100 mg total) by mouth 2 (two) times a day Commonly known as: LOPRESSOR pravastatin 40 mg tablet Commonly known as: PRAVACHOL terazosin 10 mg capsule Take 1 capsule (10 mg total) by mouth nightly Commonly known as: HYTRIN THERA-M ORAL thiamine 100 mg tablet Commonly known as: VITAMIN B1 STOP taking these medications apixaban 5 mg tablet Commonly known as: ELIQUIS furosemide 40 mg tablet Commonly known as: LASIX lisinopriL 40 mg tablet Commonly known as: PRINIVIL,ZESTRIL Discharge Instructions: Other Instructions Call provider for: increased temperature -Temperature greater than 101 degrees F Call provider for: nausea, vomiting, diarrhea -If you have persistent nausea, vomiting or diarrhea that does not stop Call provider for: redness, tenderness, or signs of infection (pain, swelling, redness, odor or green/yellow discharge around incision site) Call provider for: severe uncontrolled pain Call provider for: any other concerns or questions Call provider if: you feel dizzy, very tired or like you may faint Care Instructions: Incentive Spirometer - Continue to use your incentive spirometer Care Instructions: No tub baths -No tub baths, whirlpools or swimming until your provider says it's ok. Care Instructions: Shower -You may bathe. Keep incision clean, dry and intact until alice are removed on 07/25 Discharge Wound Type: Stitches/[place] -07/25/21 alice to be removed from L hip at nursing facility Special Instructions Please contact the Trauma Department if any problems develop, please call the Trauma office [phone]. Please be aware all medications including narcotic pain medications cannot be called in over the phone. To refill, an appointment will need to be made with the appropriate medical or surgical service. You may follow up with your primary care physician for long-term management of medications and long-term medical conditions. Special Instructions: Continue following PT/OT instructions Call your Surgeon???s office from 8:00am-3:30pm at for the following: * You have a fever of more than 101.5 degrees. * You have nausea, vomiting or diarrhea that does not stop. * You have pus or bad smelling drainage from your wound. * The pain in your stomach is very bad or gets a lot worse. * You feel dizzy, very tired or like you may faint. * You have hard time breathing. * You have any other concerns or questions Follow up Contact Information for Follow-ups Yoanna Delvalle MD Specialty: Orthopedic Surgery [address] [place] [address] /A [facility] [address] Next Steps: Follow up Instructions: With Orthopedic Trauma Surgery as scheduled 08/17 at 11:00am at [facility] ([facility]) [address] [place] [address]. Call [phone] with questions regardingthis appointment. Questions: Instructions for follow-up (appointment date and time): With Orthopedic Trauma Surgery as scheduled08/17 at 11:00am at [facility] ([facility]) [address] [place] [address]. Call [phone] with questions regarding this appointment. To provider: YOANNA DELVALLE Gregory J., MD Specialty: Neurosurgery Relationship: Consulting Physician [address] [place] [id number] Next Steps: Follow up Instructions: -- Follow up with Neurosurgery NEEDED. [phone] Questions: Instructions for follow-up (appointment date and time): -- Follow up with Neurosurgery NEEDED. [phone] To provider: SETH KISER Jason Elliott, MD Specialty: Family Medicine Relationship: PCP - General [facility] [address] [place] [address] Next Steps: Follow up Instructions: -- Follow up with your primary care physician in 1-2 weeks following discharge. Questions: To provider: JEAN-CLAUDE SALAZAR Instructions for follow-up (appointment date and time): -- Follow up with your primary care physician in 1-2 weeks following discharge. Future Appointments Date Time Provider Department Center 08/02/2021 11:00 AM [facility] ECHO (210) MBC OP Card [facility] Main 08/02/2021 12:15 PM [facility] Nov[facility] Specialty 08/17/2021 11:00 AM Yoanna Delvalle MD [facility] OS I spent 30 minutes completing this hospital discharge. Vilma Tirado NP 07/07/21 CC: Jean-Claude aSlazar MD Cosigned by Deacon Ronald Gardner MD at 07/08/2021 12:37 PM CDT documented in this encounter Medications at Time of Discharge acetaminophen (TYLENOL) 325 mg tablet Take 2 tablets (650 mg total) by mouth every 4 (four) hours as needed for pain 30 tablet 07/07/2021 cholecalciferol (VITAMIN D-3) 5,000 unit tabletIndications :Vitamin D Deficiency Take 1 tablet (5,000 Units total) by mouth every other day ramelteon (ROZEREM) 8 mg tabletIndications :Sleep-Onset Insomnia Take 1 tablet (8 mg total) by mouth nightly 30 tablet 11 07/07/2021 enoxaparin (LOVENOX) 40 mg/0.4 mL syringe Inject 0.4 mL (40 mg total) under the skin daily for 28 days 11.2 mL 07/07/2021 04/29/202 2 albuterol 2.5 mg /3 mL (0.083 %) [...] by mouth daily 30 tablet 02/22/2020 2 metoprolol (LOPRESSOR) 100 mg tabletIndications :Atrial fibrillation, unspecified type (HCC) Take 1 tablet (100 mg total) by mouth 2 (two) times a day 180 tablet 3 01/30/2021 3 miconazole (SECURA THICK) 2 % cream Apply topically 2 (two) times a day 28.35 g 07/07/2021 2 multivit,tx with iron,minerals (THERA-M ORAL) Take 1 tablet by mouth every morning [address] (PROTONIX) 40 mg EC tabletIndications [...] 100 mg by mouth every morning 3 traZODone (DESYREL) 100 mg tabletIndications :insomnia Take 1 tablet (100 mg total) by mouth nightly 30 tablet 07/07/2021 2 documented as of this encounter Ordered Prescriptions Prescription Sig Dispense Quantity Refills Last Filled Start Date End Date ramelteon (ROZEREM) 8 mg tabletIndications :Sleep-Onset Insomnia Take 1 tablet (8 mg total) by mouth nightly 30 tablet 11 07/07/2021 acetaminophen (TYLENOL) 325 mg tablet Take 2 tablets (650 mg total) by mouth every 4 (four) hours as needed for pain 30 tablet 07/07/2021 traZODone (DESYREL) 100 mg tabletIndications :insomnia Take 1 tablet (100 mg total) by mouth nightly 30 tablet 07/07/2021 2 senna 1.76 mg/mL syrup Administer 5 mL (8.8 mg total) per feeding tube 2 (two) times a day 100 mL 07/07/2021 2 miconazole (SECURA THICK) 2 % cream Apply topically 2 (two) times a day 28.35 g 07/07/2021 2 enoxaparin (LOVENOX) 40 mg/0.4 mL syringe Inject 0.4 mL (40 mg total) under the skin daily for 28 days 11.2 mL 07/07/2021 2 fluticasone furoate-vilantero L (BREO ELLIPTA) 100-25 mcg/dose diskus inhaler Inhale 1 puff daily Rinse mouth with water after use. Do not swallow. 60 each 07/07/2021 2 albuterol 2.5 mg /3 mL (0.083 %) nebulizer solutionIndicatio ns:Bronchospastic Pulmonary Disease Take 1.5 mL (1.25 mg total) by nebulization every 6 (six) hours as needed for wheezing 75 mL 07/07/2021 2 documented in this encounter Discharge Disposition Disposition Code Departure Means Destination Discharge to [facility] documented in this encounter Progress Notes * Amanda Brady LCSW - 07/07/2021 3:42 PM CDT 07/07/21 1538 Discharge Summary Chart reviewed For Medical Necessity Does patient have a planned readmission to hospital planned? No Discharge Disposition SNF, Commercial Insurance, Short term Skilled Specify Facility [facility] [place] Facility Contact Number Report: [phone] Discharge Records Transfer Form Completed;Chart Copied Discharge Additional Assistance Does the patient need discharge transport arranged? Yes Has discharge transport been arranged? Yes Details of Transportation [facility], , Trip # [phone] What day is the transport expected? 07/07/21 What time is the transport expected? 1700 Discharge Transportation Communication Mode of transport has been discussed with the patient/family. All are agreeable to the plan and understand their responsibilities to ensure the safe transfer. No further CM/SW intervention is anticipated at this time. Post Discharge Care Provider Post Discharge Care Plan DC Summary has been faxed to next level of care provider (see Follow Up Providers) Per TEXTILE MACHINE MAINTENANCE MECHANIC, patient is medically stable for discharge at this time. Patient has been accepted at [facility] for admission today, 07/07/21. SW spoke with Serina at [facility] who reports that insurance authorization has been obtained for transfer. SW spoke with patient's SO Raine who is aware and agreeable to transfer. SW answered Raine's questions and provided contact information for facility. RN provided with phone number for report. [facility] arranged for transportation, , Trip # [phone]. ETA 1700 Patient/family informed patient may require ambulance transport. Social work informed patient/family that even if the patient's insurance benefit includes ambulance transport, it may not cover the full cost of the transportation. The patient may be responsible for any out of pocket cost, including mileage beyond the nearest appropriate facility. Patient/family voiced understanding. PAIGE Schneider, BULK COOLER INSTALLER * Angelica Juarez RD - 07/07/2021 2:41 PM CDT Nutrition Tube Feeding Assessment Reason for Assessment: follow-up Encounter Date: 07/07/21 2:41 PM Patient is a 71 y.o. male LOS is 26 days. 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 Allergies Allergen Reactions ??? Penicillins Hives Anthropometrics: Wt Readings from Last 3 Encounters: 07/07/21 89.7 kg (197 lb 12 oz) 06/24/21 85.8 kg (189 lb 2.5 oz) 06/18/21 85.8 kg (189 lb 2.5 oz) Anthropometrics Weight: 89.7 kg (197 lb 12 oz) Admission Weight : 80.9 kg Weight Change: -0.29 kg (-0.66 lbs) IBW/kg (Calculated) : 78 kg Height: 180.3 cm (5' 10.98 ) Weight in (lb) to have BMI = 25: 178.8 BMI (Calculated): 27.6 Nutrition Needs Calculations: Calculated Energy Needs Using Equations Weight Used for Equation Calculations (RD Determined): 85.8 kg (189 lb 2.5 oz) Weight: 89.7 kg (197 lb 12 oz) Height: 180.3 cm (5' 10.98 ) Minute Ventilation (L/min): 6.6 L/min Estimated Protein Needs Type of Weight Used for Estimated Protein : [place] Protein Needs Based on g/k.2 Total Protein Estimated Needs (gm): 93.6 Kcal/kg Type of Weight Used for Estimated Kcals: Current Kcal/k Total Kcal/kg Estimated Needs : 2144 Height: 180.3 cm (5' 10.98 ) Weight: 89.7 kg (197 lb 12 oz) Weight Change: -0.29 kg (-0.66 lbs) Medications: Scheduled Meds: docusate, 100 mg, feeding tube, Daily famotidine, 20 mg, oral, Daily fluticasone furoate-vilanteroL, 1 puff, inhalation, Daily (RT) heparin, 5,000 Units, subcutaneous, Q8H MONET metoprolol tartrate, 100 mg, feeding tube, BID miconazole, , topical, BID eeqscaoa-zkv-igdgjca gluconate, 15 mL, feeding tube, Daily pravastatin, 40 mg, feeding tube, Daily ramelteon, 8 mg, feeding tube, Nightly senna, 8.8 mg, feeding tube, BID sodium chloride 0.9%, 0.5-20 mL, intra-catheter, Q8H MONET terazosin, 10 mg, feeding tube, Nightly thiamine, 100 mg, feeding tube, Daily traZODone, 100 mg, feeding tube, Nightly Lab Review: Sodium Date Value Ref Range Status 07/05/2021 138 135 - 145 mmol/L Final Potassium, pl Date Value Ref Range Status 07/05/2021 4.2 3.3 - 4.9 mmol/L Final BUN Date Value Ref Range Status 07/05/2021 13 8 - 25 mg/dL Final Creatinine Date Value Ref Range Status 07/05/2021 0.79 (L) 0.80 - 1.30 mg/dL Final Phosphorus, pl Date Value Ref Range Status 07/05/2021 3.0 2.3 - 4.5 mg/dL Final Magnesium Date Value Ref Range Status 07/07/2021 1.7 1.4 - 2.5 mg/dL Final Calcium Date Value Ref Range Status 07/05/2021 8.9 8.5 - 10.3 mg/dL Final Lab Results Component Value Date HGBA1C 5.2 06/12/2021 Nursing Assessment: Intake/Output Summary (Last 24 hours) at 07/07/2021 1441 Last data filed at 07/07/2021 0920 Gross per 24 hour Intake 233 ml Output 0 ml Net 233 ml Gastrointestinal Gastrointestinal (WDL): Exceptions to WDL Abdomen Inspection: Soft, Nondistended Bowel Sounds (All Quadrants): Active, Present Palpation: Soft Last BM Date: 07/07/21 Passing Flatus: Yes GI Symptoms: None Relieved by: Unrelieved (Comment) Gastrointestinal Additional Assessments: No Last BM Date: 07/07/21 Lew Scale Score: 15 Skin Integrity: Bruising Dietary Orders (From admission, onward) Start Ordered 07/06/21 1047 Oral Nutrition Supplements Select Supplement: Ensure Plus - Abby All Meals Question: Select Supplement: Answer: Ensure Plus - Abby 07/06/21 1046 07/06/21 0656 Adult Diet Restricted; Dysphagia 1 (pureed); Regular Liquid Diet effective now Question Answer Comment ([facility]) Diet type Restricted Modified Consistency: Dysphagia 1 (pureed) Fluid Consistency: Regular Liquid 07/06/21 0659 06/28/21 1217 Oral Nutrition Supplements Select Supplement: Ensure Pudding - Abby All Meals Question: Select Supplement: Answer: Ensure Pudding - Abby 06/28/21 1216 Impression: 07/07: Pt is finally eating better when he has assist with meals, is consuming ensure pudding and ensure plus, continue to encourage intake. 07/06: Pt passed swallow evaluation yesterday for dysphagia 1 pureed diet with regular liquids. 07/03: Pt ate better over the weekend with assist with meals. Pt not assisted this morning, did not eat breakfast. Pt continues to be A&Ox2, confused. RN did document lunch today at 100% with help/assist. Noted feeding tube pulled by patient and he ate better with assist over the weekend so tubewas not replaced. Encouraged PO intake. 06/30: Pt ate 0% of lunch and dinner yesterday, today RN reported pt ate 50% of breakfast, however unsure how much was actually consumed. Pt cannot consume liquids, is ordered for ensure pudding at the moment. Team placed dobhoff tube into stomach to help give night cycled tube feeds, order put in. 06/29: Pt with encephalopathy, transferred from neuro floor. Pt with TBI with SAH and IVH. Pt currently noted as A&Ox0. Pt reports he is not sure if he ate breakfast this morning. Pt passed speechtherapy for dysphagia 1 pureed diet with no liquids, pt ordered for ensure pudding to help meet nutrition needs. Pt still has NG tube in place, is currently not being used. Consider tube feeding if pt cannot increase PO intake, however RN notified RD that pt pulled out his feeding tube. Team wanting to see how patient does with meds in applesauce and eating, may need to replace feeding tube tomorrow. Of note, speech therapy was unable to do full normal MBS today due to pt's mental status. Per TEXTILE MACHINE MAINTENANCE MECHANIC, this might be pt's new normal. Consider NG tube placement for now, but consider PEG tube if this w ill be meterman picture. Noted 1 healing wound documented on buttocks. Last documented BM 06/28. Wt Readings from Last 10 Encounters: 07/07/21 89.7 kg (197 lb 12 oz) 06/24/21 85.8 kg (189 lb 2.5 oz) 06/18/21 85.8 kg (189 lb 2.5 oz) 01/25/21 91.6 kg (202 lb) 07/16/20 87.1 kg (192 lb) 07/11/20 86.6 kg (190 lb 14.7 oz) 06/15/20 85.3 kg (188 lb) 02/22/20 88 kg (194 lb 0.1 oz) 01/04/20 78 kg (172 lb) 12/28/19 76.7 kg (169 lb 3.2 oz) NUTRITION DIAGNOSIS Nutrition Diagnosis 1: Inadequate oral intake Related to: Lack of interest Evidenced by: PO under 50% INTERVENTION Currently on dysphagia 1 pureed diet with regular liquids. Encouraged PO intake, snacks, supplements. Continue ensure pudding TID to help meet nutrition needs. Continue ensure plus TID to help meet nutrition needs. Calorie count: 06/28: B:2 bites, L: 250 calories, D: Not documented 06/29: B: refused, L: refused, D: refused 06/30: B: 50 % per RN report, no ticket, L: 0%, D: 0% 07/01: B: 134 calories, L: no ticket, D: 468 calories 07/02: B: 290 calories, L/D: no ticket 07/03: B: 0%, L: 100%, D: no ticket 07/05: B: 386 calories, L: not yet consumed, D: 302 calories 07/06: B: 352 calories, L: 640 calories, D: 1036 calories 07/07: B: 355 calories Will D/C calorie count as pt is increasing PO Intake and is able to meet nutrition needs if he is helped to eat. GOAL(S) / MONITORING: Goals: Oral intake to meet 75% estimated nutritional needs by next assessment Interventions: Calorie count, Medical food supplement, Other (comment) (possibly restart TF) Monitoring and Evaluation: Appetite, Labs, PO intake, Stool patterns Angelica Juarez MS RD LD #[phone] * Taylor Persaud PTA - 07/07/2021 11:46 AM CDT Physical Therapy Progress Note NOTE: This is a summary note of the troy components of the treatment session. For full details, review chart for all flowsheets documented on by this physical therapy clinician on this date. Vital signs documented in vital signs flowsheet. Care plan progress documented in Care Plan Activity. For questions, please review the treatment team and contact the PT or WELL CLEANER currently assigned to this patient. If a physical therapy clinician is not assigned to this patient, please call [phone]. 07/07/21 1146 PT Last Visit Session Type Treatment PT Received On 07/07/21 Safe Environment Arm Band Checked;Chair Alarm placed and activated;Call Light within Reach;NotifiedRN;Session Completed Bedside;Patient found sitting in Chair;Overbed Table within Reach (left in chair, needs in reach) Subjective Agreeable to Therapy Family/Caregiver Present No Precautions Precautions Fall risk Weight Bearing Restrictions Yes LLE Weight Bearing WBAT Precaution Comments verbally reviewed wbat precautions Activity Tolerance Activity Tolerance Comments gianfranco: unable to assess Pain Assessment Pain Assessment No/denies pain Cognition Orientation Oriented to person;Oriented to place;Oriented to situation Following Commands Follows one step commands with increased time Balance Balance Yes Static Sitting Balance Static Sitting-Balance Support Bilateral upper extremity supported;Feet supported Static Sitting-Sitting Surface Chair Static Sitting-Level of Assistance Close supervision Static Sitting-Comment/# of Minutes safety Static Standing Balance Static Standing-Balance Support Bilateral upper extremity supported (ww) Static Standing-Standing Surface Floor Static Standing-Level of Assistance Moderate assistance;Minimum assistance (x2, x1) Static Standing-Comment/# of Minutes assist to maintain upright, prevent posterior lean, balance, stabilize WW; verbal/tactile cues for upright posture, hip extension, forward gaze; pt with posteriorlean & decreased balance; assist fluctuating between MinAx2 and ModAx1; x6 trials of 15-90 seconds. Equipment Use Equipment Use Comments gait belt Bed Mobility Bed Mobility No Transfers Transfer Yes Transfer 1 Transfer From 1 Sit Transfer Type 1 To and from Transfer to 1 Stand Technique 1 Sit to stand;Stand to sit Transfer Device 1 Wheeled walker Transfer Level of Assistance 1 Moderate Assist;Maximal verbal cues;Maximal tactile cues (x2) Trials/Comments 1 assist of 2 for force production, maintain upright, prevent posterior lean, maintain upright, controlled descent, stabilizing WW; Max & repeated verbal & tactile cues for technique, hand placement, flexion of BLEs, anterior weight shift, positioning hips to edge of chair; x6 trials from chair; Assist of 2 required after 4 attempts with assist of 1 with & w/o WW. Ambulation Functional Ambulation Category 0 Ambulation No Other Comments Other PT Comments Increased time for session: pt's condom catheter fell off, pt incontinent of urine, assist with perineal hygiene, pt required multiple bouts of BM hygiene (performed by nursing education specialist) and 1 bout of sitting on bedpan in chair. Pt requires repeated simple commands with tactile cues, pt [place]; pt cooperative. Basic Mobility - 6 Click How much difficulty does the patient have: Turning over in bed 3 How much difficulty does the patient currently have: Sitting down and standing up from a chair witharms? 2 How much difficulty does the patient have: Moving from lying on back to sitting on the side of the bed? 3 How much difficulty does the patient have: Moving to and from a bed to a chair including wheelchair? 2 How much help does the patient currently need: Walk in hospital room? 2 How much help from another person does the patient currently need: Climbing 3-5 steps with a railing? 1 Total 6 Click Score (range 6-24) 13 Plan Plan Continue with current plan Recommendation/Plan PT Recommendation/Plan Inpatient Rehab Facility (per PT) PT Frequency 3-5x/wk (per PT) PT - Next Appointment 07/10/21 Multi-Disciplinary Problems (from Physical Therapy) Active Problems Problem: Mobility Start Date: 06/13/21 Goal Start Date Expected End Date End Date STG - Patient will ambulate 06/13/21 07/17/21 -- Goal Details: 100 ft wthi LRAD, [place] Problem: Transfers Start Date: 06/13/21 Goal Start Date Expected End Date End Date STG - Patient will transfer sit to and from stand 06/13/21 07/17/21 -- Goal Details: Maritza with LRAD Problem: Mobility Start Date: 06/13/21 Goal Start Date Expected End Date End Date LTG - Patient will demonstrate functional mobility with the following level of assist: 06/13/21 09/05/21 -- Goal Details: hCerelle with LRAD Problem: Transfers Start Date: 07/03/21 Goal Start Date Expected End Date End Date STG - Transfer from bed to chair supervision 07/03/21 07/17/21 -- Goal Start Date Expected End Date End Date STG - Patient to transfer to and from sit to supine supervision 07/03/21 07/17/21 -- Reviewed By Tamiko Salazar RN 06/24/21 0140 Tamiko Salazar RN 06/23/21 0351 * Julieta Tirado NP - 07/07/2021 10:14 AM CDT [facility] Geriatric Trauma Surgery Daily Progress Note Admit: 06/11/2021 6:55 PM Date: July 07, 2021 Length of Stay: 26 Attending: Darrel Wolf,* POD:* No surgery found * History: Jania Redman is a 71 y.o. 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 There was loss of consciousness. Of note, he had an unwitnessed fall the week prior. He was first taken to [facility] via EMS on 06/08 after sustaining fall with LOC at home. At [place] the initial head??CT??was??negative and he was admittedovernight 06/08-06/09 for further evaluation and treatment of possible syncopal episodes. There was reported involuntary movements and nystagmus for which he was loaded with Keppra and planned for EEG, the course of this is unclear. He had reportedly been started on CIWA protocol??with librium.??An MRIlater revealed SAH, IVH, small IPH for which he was ultimately transferred to [facility] as a neurosurgeryprimary patient the evening of 06/11. Overnight 06/11-06/12 the patient was not following commands and was somnolent, worsening following??Ativan administration for high CIWA score. [facility] morning of 06/12??for closer observation. NSGY consulted Medicine servicefor assistance with syncope work-up and management of multiple comorbidities. The patient had ongoing somnolence and lethargy throughout the??morning,??and on??Medicine consult's evaluation, there was concern for??being at risk for airway compromise with his impaired level of consciousness. A nasaltrumpet was placed, and the patient was then transferred to 9400 ICU for closer monitoring. Interval History: 07/07: No acute events overnight. Patient oriented x 2 this morning. Rechecking Mg level this am. Pending rehab placement. 07/06: Hgb 9.4 (10.3), Mg 1.6 (repleted). Overnight HR 90s, SBP 100-110s. Passed mBS for Dysphagia 1diet, regular/thin liquids. Pending placement. 07/05: POD1. Overnight issues Afib with RVR into 160s. 5mg IVP metop x 1, 1L LR bolus. Increased metop to home dose 100mg bid. Patient needs MBS today with speech. Patient needs to work with therapy for dispo planning as well. 07/04: Labs reviewed, no acute events overnight. NPO for OR today with Ortho for CMN. mBS rescheduled for tomorrow. 07/03: No acute events overnight, Cr 0.73 (0.99). Continues on room air, BM x1. More interactive today. Re-engage Neurology for consult for continued AMS. 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 Notified Ortho regarding results of hip MRI. 07/02: No acute events overnight. Continue to encourage assist with all meals. Obtaining MRI today of right hip. Encourage continued work with therapy services. 07/01: SBFT remains in place, tube feeds at goal. CAOx2 this AM. Neurology consulted for hx seizure surrounding his initial fall. Budesonide started. Encourage continued work with therapy services. 06/30: Na 135 (137). Rate controlled A-fib on tele. BG overnight 70 on BMP, 32 on POCT, patient treated w/ applesauce with sugar packets -> BG 90. IVF increased, POCT accuchecks added. Assist w/ feeding, request for SBFT placement, mBS pending, MRI hip pending. Poor PO intake, continue to encourage additional PO. 06/29: WBC 6.3 (10.2), Hgb 12.2 (11.7), Cr 0.98 (0.95), UOP 550 ml. 2 L IVF completed. Repeat orthostatic vitals pending, carotid duplex performed, MRI L hip pending, repeat modified barium swallow pending. PM&R consult placed. Wean O2. D/c Bactrim, Flagyl to be completed today. Will need head CT just prior to discharge per NSGY. Pt pulled out NG tube, started on IVF. 06/28: Transferred from the ICU to the floor in a stable condition. Vitals stable on admission. NG tube, not on any supplemental oxygen. Hard of hearing, difficulty answering questions. Per ICU signout, A&O x 1 at baseline. No active issues at the moment. Pain:controlled Nausea: No Flatus: No Bowel Movement: Yes Medications: Current Facility-Administered Medications: ??? acetaminophen (TYLENOL) tablet 650 mg, 650 mg, feeding tube, Q4H PRN, Cassie Trent NP, 650 mg at 07/06/21 1849 ??? albuterol 2.5 mg/0.5 mL nebulizer solution 1.25 mg, 1.25 mg, nebulization, Q6H PRN (RT), Jair Jay MD ??? docusate (COLACE) 10 mg/mL oral liquid 100 mg, 100 mg, feeding tube, Daily, Sada العلي NP, 100 mg at 07/07/21 0949 ??? famotidine (PEPCID) tablet 20 mg, 20 mg, oral, Daily, Julieta Tirado NP ??? fluticasone furoate-vilanteroL (BREO ELLIPTA) 100-25 mcg/dose inhaler 1 puff, 1 puff, inhalation, Daily (RT), Jahaira Brown NP, 1 puff at 07/07/21 0813 ??? heparin 5,000 unit/mL injection 5,000 Units, 5,000 Units, subcutaneous, Q8H MONET, Elizabeth Persaud, TEXTILE MACHINE MAINTENANCE MECHANIC, 5,000 Units at 07/07/21 0647 ??? metoprolol (LOPRESSOR) tablet 100 mg, 100 mg, feeding tube, BID, Vy Munoz,GARIMA, 100 mg at 07/07/21 0950 ??? miconazole (SECURA THICK) 2 % cream, , topical, BID, Andreia Ellis MD, Given at 07/07/21 1005 ??? jlkufzup-mht-olokoqk gluconate (CENTRUM) 0.6 mg iron/mL oral liquid 15 mL, 15 mL, feeding tube,Daily, Cassei Trent NP, 15 mL at 07/07/21 0949 ??? pravastatin (PRAVACHOL) tablet 40 mg, 40 mg, feeding tube, Daily, Cassie Trent NP, 40mg at 07/07/21 0949 ??? ramelteon (ROZEREM) tablet 8 mg, 8 mg, feeding tube, Nightly, Tamiko Ray NP, 8 mg at 07/06/21 1849 ??? senna 1.76 mg/mL syrup 8.8 mg, 8.8 mg, feeding tube, BID, Sada العلي NP, 8.8 mg at07/07/21 0949 ??? sodium chloride 0.9% flush 0.5-20 mL, 0.5-20 mL, intra-catheter, Q8H [facility], Belinda Shaffer MD PhD, 10 mL at 07/07/21 0649 ??? sodium chloride 0.9% flush 0.5-20 mL, 0.5-20 mL, intra-catheter, PRN, Belinda Shaffer MD PhD, 10 mL at 06/25/21 0745 ??? terazosin (HYTRIN) capsule 10 mg, 10 mg, feeding tube, Nightly, Ciarra Jama, TEXTILE MACHINE MAINTENANCE MECHANIC, 10 mg at 07/06/21 2028 ??? thiamine (VITAMIN B1) tablet 100 mg, 100 mg, feeding tube, Daily, Jair Jay MD, 100 mg at 07/07/21 0950 ??? traZODone (DESYREL) tablet 100 mg, 100 mg, feeding tube, Nightly, Ciarra Jama NP,100 mg at 07/06/212028 Diet: Dietary Orders (From admission, onward) Start Ordered 07/06/21 1047 Oral Nutrition Supplements Select Supplement: Ensure Plus - Abby All Meals Question: Select Supplement: Answer: Ensure Plus - Abby 07/06/21 1046 07/06/21 0656 Adult Diet Restricted; Dysphagia 1 (pureed); Regular Liquid Diet effective now Question Answer Comment ([facility]) Diet type Restricted Modified Consistency: Dysphagia 1 (pureed) Fluid Consistency: Regular Liquid 07/06/21 0659 06/28/21 1217 Oral Nutrition Supplements Select Supplement: Ensure Pudding - Abby All Meals Question: Select Supplement: Answer: Ensure Pudding - Abby 06/28/21 1216 Activity: As tolerated Is&Os: I/O last 2 completed shifts: In: 405 [P.O.:405] Out: 225 [Urine:225] No intake/output data recorded. Physical Exam: 24hr Min/Max: Temp Min: 36.3 ??C (97.3 ??F) Max: 37.5 ??C (99.5 ??F) Pulse Min: 76 Max: 102 BP Min: 112/90 Max: 150/92 Resp Min: 17 Max: 24 SpO2 Min: 95 % Max: 98 % Vitals: 07/07/21 1000 BP: 131/77 Pulse: 83 Resp: Temp: SpO2: 97% Constitutional: well developed, well nourished, cooperative and no apparent distress Head: normocephalic, without obvious abnormality, atraumatic Neurologic: oriented to person and place sensation intact all extremities demonstrated purposeful movement in all 4 extremities Eyes: pupils: Bilateral: reactive and size 2 mm, conjunctiva normal, left ptosis HENT: lips, mucosa, and tongue normal Neck: supple, symmetrical, trachea midline Chest: normal appearance, no masses or tenderness Respiratory: normal chest rise and fall, diminished breath sounds bilateral and on room air Cardiovascular: regular rate and irregularly irregular rhythm Gastrointestinal: non-distended and soft non-tender Musculoskeletal: extremities normal, warm and well-perfused and no edema Pulses: PT: bilateral normal Skin: skin color, texture, turgor normal. No rashes or lesions or incision L lateral hip incision intact. no active drainage or bleeding noted, dressing to mid thigh torn, alice intact, no drainageor erythema from incision Labs/Imaging: Recent Results (from the past 72 hour(s)) POCT glucose Collection Time: 07/04/21 5:27 PM Result Value Ref Range Glucose, POC 99 70 - 199 mg/dL ECG 12 lead Collection Time: 07/04/21 7:56 PM Result Value Ref Range Ventricular Rate EKG/Min 156 BPM Atrial Rate 326 BPM QRS-Interval (MSEC) 72 ms QT-Interval (MSEC) 294 ms QTc 473 ms R [place] 46 degrees T [place] 198 degrees Diagnosis Atrial fibrillation with rapid ventricular response Nonspecific ST and T wave abnormality Abnormal ECG When compared with ECG of 13-JUN-2021 23:38, Vent. rate has increased BY 78 BPM Nonspecific T wave abnormality no longer evident in Anterior leads Confirmed by KERRY NICOLE M.D ([id number]) on 07/05/2021 9:58:52 PM POCT glucose Collection Time: 07/04/21 11:38 PM Result Value Ref Range Glucose, POC 107 70 - 199 mg/dL Basic metabolic panel Collection Time: 07/05/21 2:19 AM Result Value Ref Range Sodium 140 135 - 145 mmol/L Potassium, pl 4.6 3.3 - 4.9 mmol/L Chloride 108 97 - 110 mmol/L CO2 24 22 - 32 mmol/L Anion gap 8 2 - 15 mmol/L BUN 11 8 - 25 mg/dL Creatinine 0.83 0.80 - 1.30 mg/dL Glucose 97 70 - 199 mg/dL Calcium 8.8 8.5 - 10.3 mg/dL CBC without differential Collection Time: 07/05/21 2:19 AM Result Value Ref Range WBC 6.7 3.8 - 9.9 K/cumm Hgb 10.3 (L) 13.0 - 17.5 g/dL Hct 29.8 (L) 38.9 - 50.3 % Plt 140 (L) 150 - 400 K/cumm MPV 10.4 9.1 - 12.3 fL RBC 2.98 (L) 4.30 - 5.80 M/cumm MCV 100.0 (H) 81.3 - 96.4 fL MCH 34.6 (H) 27.1 - 33.3 pg MCHC 34.6 32.3 - 35.7 g/dL RDW CV 12.6 11.1 - 14.9 % RDW SD 45.2 35.7 - 48.1 fL NRBC abs 0.00 0.00 - 0.01 K/cumm Magnesium Collection Time: 07/05/21 2:19 AM Result Value Ref Range Magnesium 1.5 1.4 - 2.5 mg/dL eGFR Collection Time: 07/05/21 2:19 AM Result Value Ref Range eGFR >90 90 - 130 mL/min/1.73 m2 POCT glucose Collection Time: 07/05/21 8:04 AM Result Value Ref Range Glucose, POC 91 70 - 199 mg/dL POCT glucose Collection Time: 07/05/21 11:27 AM Result Value Ref Range Glucose, POC 144 70 - 199 mg/dL POCT glucose Collection Time: 07/05/21 5:47 PM Result Value Ref Range Glucose, POC 99 70 - 199 mg/dL POCT glucose Collection Time: 07/05/21 11:32 PM Result Value Ref Range Glucose, POC 111 70 - 199 mg/dL Basic metabolic panel Collection Time: 07/05/21 11:33 PM Result Value Ref Range Sodium 138 135 - 145 mmol/L Potassium, pl 4.2 3.3 - 4.9 mmol/L Chloride 107 97 - 110 mmol/L CO2 27 22 - 32 mmol/L Anion gap 4 2 - 15 mmol/L BUN 13 8 - 25 mg/dL Creatinine 0.79 (L) 0.80 - 1.30 mg/dL Glucose 104 70 - 199 mg/dL Calcium 8.9 8.5 - 10.3 mg/dL CBC without differential Collection Time: 07/05/21 11:33 PM Result Value Ref Range WBC 6.3 3.8 - 9.9 K/cumm Hgb 9.4 (L) 13.0 - 17.5 g/dL Hct 27.3 (L) 38.9 - 50.3 % Plt 149 (L) 150 - 400 K/cumm MPV 10.7 9.1 - 12.3 fL RBC 2.75 (L) 4.30 - 5.80 M/cumm MCV 99.3 (H) 81.3 - 96.4 fL MCH 34.2 (H) 27.1 - 33.3 pg MCHC 34.4 32.3 - 35.7 g/dL RDW CV 12.5 11.1 - 14.9 % RDW SD 45.0 35.7 - 48.1 fL NRBC abs 0.00 0.00 - 0.01 K/cumm Magnesium Collection Time: 07/05/21 11:33 PM Result Value Ref Range Magnesium 1.6 1.4 - 2.5 mg/dL Phosphorus Collection Time: 07/05/21 11:33 PM Result Value Ref Range Phosphorus, pl 3.0 2.3 - 4.5 mg/dL eGFR Collection Time: 07/05/21 11:33 PM Result Value Ref Range eGFR >90 90 - 130 mL/min/1.73 m2 POCT glucose Collection Time: 07/06/21 7:57 AM Result Value Ref Range Glucose, POC 107 70 - 199 mg/dL Influenza A/B, RSV, and COVID-19 PCR Nasopharyngeal Collection Time: 07/06/21 10:56 AM Specimen: Nasopharyngeal Result Value Ref Range COVID-19 RNA Negative Negative Influenza A RNA Negative Negative Influenza B RNA Negative Negative RSV RNA Negative Negative First COVID-19 test? No Employeed in healthcare? No Group care resident? No Hospitalized? Yes Is patient in ICU? No Symptomatic as defined by CDC? No POCT glucose Collection Time: 07/06/21 11:20 AM Result Value Ref Range Glucose, POC 125 70 - 199 mg/dL POCT glucose Collection Time: 07/06/21 6:37 PM Result Value Ref Range Glucose, POC 134 70 - 199 mg/dL POCT glucose Collection Time: 07/06/21 8:39 PM Result Value Ref Range Glucose, POC 170 70 - 199 mg/dL POCT glucose Collection Time: 07/07/21 7:55 AM Result Value Ref Range Glucose, POC 103 70 - 199 mg/dL No results found. Assessment and Plan: Active Problems: Hypercholesterolemia Hypertension Atrial fibrillation (CMS/HCC) ([facility]) Chronic systolic heart failure (CMS/HCC) ([facility]) TBI (traumatic brain injury) (CMS/HCC) ([facility]) SAH (subarachnoid hemorrhage) (CMS/[facility]) ([facility]) Encephalopathy Acute delirium Scrotal abscess Closed nondisplaced intertrochanteric fracture of left femur ([facility]) ([facility]) Dysphagia Orthostatic hypotension Acute respiratory failure ([facility]) Acute on chronic anemia Thrombocytopenia (CMS/HCC) (HCC) #Traumatic brain injury with SAH and intraventricular hemorrhage - Admitted to NSGY - Keppra 500mg BID x7 days completed - Neuro checks q4hr - PM&R consult completed, rec SNF/LTC, continued PT/OT/[employer] - Head CT (07/02) with decreasing IVH - No need for NSGY follow-up, NSGY signed off #Encephalopathy - Etiology seems to be multifactorial with alcohol withdrawal (received librium at OSH), TBI, hospital admission/delirium, possible Wernicke's - s/p 9 days folic acid, 3 days 500 mg IV q8h, thiamine followed by 250 mg x5 days - Neurology consult - signed off - Delirium precautions - If worsening mental status, consider repeat infectious work-up and/or routine EEG - MVI daily and thiamine 100 mg daily indefinitely #COPD #Acute on chronic respiratory failure - resolved - No home medications - Extubated 06/18 - Patient arrived to floor on face tent - 06/30: on room air - Wean O2 for SpO2 goal 88-92% - Breo-Ellipta started 07/01 for maintenance - PRN albuterol - Incentive spirometry, acapella, CPT #Chronic systolic heart failure - per Cardiology note from 01/25/21: asymptomatic mild LV dysfunction, suspect tachycardia mediated - Previously EF 45-50% (2020), now EF 70-75% as of 06/13 - Increased metoprolol to home dose 100 mg BID - Holding home lisinopril, restart after OR if appropriate #Atrial fibrillation with RVR - s/p amio gtt 06/13-06/14; will need outpatient f/u with Panelboard Operator - Metoprolol 100 mg BID for rate control (home dose) - 07/04 RVR 160s post op, 5mg IVP metop x 1, 1L LR bolus - Goal HR <120 - Telemetry #Syncope/Orthostatic hypotension - + orthostatic symptoms as outpatient per and + orthostatics at OSH - TTE unrevealing - Orthostatics positive 06/22 - Received 2 L fluid on 06/28-06/29 - Carotid duplex with less than 50% stenosis bilaterally #Dysphagia due to TBI - On dysphagia 1 diet with NO liquids - Continue calorie count x3 days to ensure adequate PO (initiated on 06/27, continue through 06/30), Nutrition following - NG tube placed for meds, removed by patient on 06/29 - Cognition poor requiring frequent redirection, repeat mBS pending - 2 L IVF completed 06/29 - SBFT placed 06/30, autoremoved by patient 07/01 - Assist 100% with all meals - final operations technician following - Calorie count - Repeat mBS pending 07/05 - passed for regular/thin liquids, DDI diet, meds crushed in puree #Left IT fracture - Ortho consult - Mobilization trial failed - MRI of left hip (07/03) with nondisplaced proximal IT fx - Re-engaged Ortho on 07/03 - 07/04: OR with Ortho for L CMN - LLE WBAT - Valentine-op Ancef x 24 hrs completed - POD3 dressing change by Ortho (07/07/21) - Daily dry dressing changes - Alice to be removed 3 weeks post-op (07/25/21) - Pain control, PT/OT - Follow-up scheduled on 07/[address] Delvalle located at [facility] #Bacteroides fragilis scrotal abscess and cellulitis - US scrotum (06/17) with left hydrocele and cellulitis - CT pelvis w contrast (06/17) positive for small left scrotal hydrocele, negative for soft tissue gas, and positive for non-displaced trochanteric fracture - Urology consulted:10 day course abx and should heal on its own, call if infection appears worse or changes - Clindamycin discontinued 06/20 - Continue flagyl and bactrim through 06/29 for a total of 12 days since susceptibilities are not back yet - f/u susceptibilities: susceptible to flagyl - Bactrim d/c'd 06/29, Flagyl completed 06/29 #HTN - Home lisinopril 40 mg daily on hold, restart as able - Home lasix 40 mg daily on hold, restart as able - Continue metoprolol - SBP goal <160 #HLD - Continue pravastatin 40 mg daily #Thrombocytopenia - Plt 137 on admission - No history of thrombocytopenia - 07/03: Plt 185 - 07/05: Plt 140 - 07/06: Plt 149 - likely reactive in setting of surgery - CBC as indicated #ABLA on chronic anemia - History of anemia, baseline Hgb ~10-12 - Post op Hgb 10.3 (11.8) on 07/05 - 07/06: Hgb 9.4, asymptomatic - No further labs unless symptomatic #DVT ppx: heparin subQ #Dispo: SNF vs rehab Vilma Tirado NP Cosigned by Deacon Ronald Gardner MD at 07/08/2021 12:37 PM CDT * Aliya Bourgeois, OT - 07/07/2021 9:31 AM CDT Occupational Therapy Occupational Therapy Progress Note NOTE: This is a summary note of the troy components of the treatment session. For full details, review chart for all flowsheets documented on by this occupational therapy clinician on this date. Vitalsigns documented in vital signs flowsheet. Care plan progress documented in Care Plan Activity. For questions, please review the treatment team and contact the occupational therapist currently assigned to this patient. If an occupational therapist is not assigned to this patient, please call [phone]. 07/07/21 0931 General Session Type Treatment OT Received On 07/07/21 Safe Environment Arm Band Checked;Call Light within Reach;Notified RN;Patient found in Supine;ChairAlarm placed and activated (pt left sitting in chair; alarm set) Subjective Agreeable to Therapy Family/Caregiver Present No Precautions Precautions Fall risk LLE Weight Bearing WBAT Precaution Comments verbally reviewed WB status Pain Assessment Pain Assessment No/denies pain Balance Balance Yes Static Sitting Balance Static Sitting-Balance Support Feet supported;Bilateral upper extremity supported Static Sitting-Sitting Surface Bed Static Sitting-Level of Assistance Minimum assistance Static Sitting-Comment/# of Minutes Min A to prevent posterior LOB. Static Standing Balance Static Standing-Balance Support Bilateral upper extremity supported Static Standing-Standing Surface Floor Static Standing-Level of Assistance Moderate assistance (x2) Static Standing-Comment/# of Minutes Mod of 2 to ensure balance/safety, x4 reps LE Dressing LE Dressing: Where assessed Supine, bed LE Dressing: Level of assistance Maximum Assist LE Dressing: Assistance with Don/doff R sock;Don/doff L sock;Thread RLE into pants;Thread LLE into pants;Pull up over hips Toileting Toileting: Where assessed Chair Toileting: Level of assistance Maximum Assist Toileting: Assistance with Clothing management down;Clothing management up;Anterior;Posterior Bed Mobility Bed Mobility Yes Bed Mobility 1 Bed Mobility From 1 Supine Bed Mobility Type 1 To and from Bed Mobility to 1 Rolling right;Rolling left Level of Assistance 1 Maximum Assist Bed Mobility Comments 1 Max A for force production and to maintain sidelying. Bed Mobility 2 Bed Mobility From 2 Supine Bed Mobility Type 2 To and from Bed Mobility to 2 Short sit;Edge of Bed Level of Assistance 2 Maximum Assist Bed Mobility Comments 2 Max A for trunk elevation and maneuvering BLEs. Transfers Transfer Yes Transfer 1 Transfer From 1 Sit Transfer Type 1 To and from Transfer to 1 Stand Technique 1 Sit to stand;Stand to sit Transfer Device 1 No device Transfer Level of Assistance 1 Moderate Assist (of 2) Trials/Comments 1 Mod of 2 for force production, maintaining balance, and controlling descent. x4 reps Toilet Transfers Toilet Transfer From Bed Toilet Transfer Type To Toilet Transfer to Standard bedside commode (simulated via bedside chair) Toilet Transfer Technique Stand pivot;To right Toilet Transfer: Equipment No device Toilet Transfers Maximal assistance (of 2) Toilet Transfers Comments Max A of 2 for force production, blocking L knee and mauenvering RLE to step pivot as well as maintaining balance and controlling descent. Cognition Arousal/Alertness Appropriate responses to stimuli;Alert Attention Span Attends with cues to redirect;Distractability Current communication Appears Intact Orientation Oriented to person;Oriented to place Following Commands Follows one step commands with increased time (and repetition) Awareness of Errors Decreased awareness of errors Insight Decreased awareness of deficits Compliance/Behavior Easy to engage Other Comments Comments Treatment consisted of bed mobility, functional transfer training and multiple standing trials. Pt easy to engage in session goals. Will continue to follow. Daily Activity - 6 Clicks Putting on and taking off regular lower body clothing 2 Bathing 2 Toileting 2 Putting on and taking off upper body clothing 2 Personal Grooming 2 Eating Meals 2 Total Score (range 6-24) 12 Score Interpretation 30.60 Assessment Problem List Decreased safe judgment during ADL;Decreased upper extremity strength;Decreased cognition;Decreased endurance;Decreased balance;Decreased functional mobility;Decreased ADL independence;Decreased IADL independence Barriers to Discharge Current Mobility Status;Cognition;Decreased safety awareness;Other (Comment) (fall risk) Plan Plan Continue with current plan;If this is the last note, consider this the discharge summary Recommendation/Plan OT Recommendation Inpatient Rehab Facility OT Frequency 5-7x/wk Treatment/Interventions ADL/IADL retraining;Balance Training;Bed mobility;Endurance training;Functional activity;Functional mobility training;Functional transfer training;Range of motion;Strengthening;Therapeutic activity;Therapeutic exercise;Transfer training Progress Progressing toward goals OT - Next Appointment 07/10/21 Multi-Disciplinary Problems (from Occupational Therapy) Active Problems Problem: Grooming Start Date: 06/29/21 Goal Start Date Expected End Date End Date STG - Patient will complete grooming 06/29/21 07/06/21 -- Goal Details: In unsupported sitting with Mod A Problem: Transfers Start Date: 06/29/21 Goal Start Date Expected End Date End Date STG - Patient will perform toilet transfer 06/29/21 07/28/21 -- Goal Details: To BSC with Mod A Problem: OT Misc Start Date: 06/29/21 Goal Start Date Expected End Date End Date OT STG - Misc 2 06/29/21 07/28/21 -- Goal Details: Patient will follow one step commands with no verbal cues Problem: Dressings Lower Extremities Start Date: 07/03/21 Goal Start Date Expected End Date End Date STG - Patient to complete lower body dressing 07/03/21 07/10/21 -- Goal Details: With min A Problem: Toileting Start Date: 07/03/21 Goal Start Date Expected End Date End Date STG - Patient will complete toileting tasks with 07/03/21 07/10/21 -- Goal Details: With Min A Reviewed By Tamiko Salazar RN 06/24/21 0140 Tamiko Salazar RN 06/23/21 0351 * Buffy Hidalgo MD - 07/07/2021 5:06 AM CDT Orthopaedic Trauma Service Daily Progress Note Admit Date: 06/11/2021 Hospital Day: 26 MBB Dx: L IT fx Injury Mechanism: SLMF OI: TBI, SAH; chronic draining scrotal abscess PMHx: HTN, atrial fibrillation (on eliquis, last 3), CHF, COPD Plan: CMN L IT fx. Procedure(s): 07/04/21- CMN L IT fx , HPI: 71 y.o.male s/p SLMF p/w L IT fx. Fell around 06/06/2021, sustained TBI and SAH, has been encephalopathic w/ AMS since in NICU. Has not been ambulatory 2/2 AMS requiring lift for transfers. Injurynoted on CT abdomen performed for scrotal abscess. Exam: Intermittently participatory on exam, responding yes to all questions. Skin intact. No perceivable pain with logroll/hip ROM, actively moving LLE. Distally motor intact, WWP. OI: SAH/TBI. Consulting Services: Neuro ICU primary, NSGY. PMHx: HTN, atrial fibrillation (on eliquis, last 06/08), CHF, COPD. Soc Hx: + EtOH w/ withdrawals, unkn drugs , retired, lives w/ spouse. Interval History: AFVSS. No new labs. Has not yet walked w PT. Dressings changed, incisions cdi. NVI distally, wiggles toes and ankle to touch. A&OX1. Recs for IPR per PT/OT, dispo per GTS. Ortho will s/o at this time. Please call w any concerns. Edited by: Buffy Hidalgo MD at 07/07/2021 0507 Objective Vitals: 24hr Min/Max: Temp Min: 36.3 ??C (97.3 ??F) Max: 37.5 ??C (99.5 ??F) Pulse Min: 76 Max: 102 BP Min: 112/90 Max: 150/92 Resp Min: 17 Max: 24 SpO2 Min: 95 % Max: 98 % I/O last 2 completed shifts: In: 405 [P.O.:405] Out: 225 [Urine:225] No intake/output data recorded. Physical Exam: Gen: No acute distress Alert and oriented: x1 ?? Extremity Left Lower extremity Dressing/wound: dressing clean/dry/intact Immobilization: n/a Sensation: unable to appropriately assess due to current mental status but wiggles foot to touch Motor: fires tibialis anterior, gastroc-soleus complex, extensor hallucis longus, flexor hallucis longus Perfusion: toes WWP Lab/Diagnostic Review: Recent Labs Lab Units 07/06/21203807/06/21 0757 07/05/21 2333 07/04/21 1727 07/03/21 2235 07/03/21 22307/03/21 0008 SODIUM mmol/L -- -- 138 < > 140 -- 138 POTASSIUM PLASMA mmol/L -- -- 4.2 < > 4.4 -- 4.3 CHLORIDE mmol/L -- -- 107 < > 105 -- 106 CO2 mmol/L -- -- 27 < > 29 -- 26 ANIONGAP mmol/L -- -- 4 < > 6 -- 6 GLUCOSE mg/dL -- -- 104 < > 106 -- 121 POC GLUCOSE MONITOR mg/dL 170 < > -- < > -- < > -- BUN SERUM mg/dL -- -- 13 < > 13 -- 12 CREATININE mg/dL -- -- 0.79* < > 0.75* -- 0.73* CALCIUM mg/dL -- -- 8.9 < > 9.6 -- 9.1 WBC K/cumm -- -- 6.3 < > 6.5 -- 6.3 HEMOGLOBIN g/dL -- -- 9.4* < > 11.8* -- 11.9* HEMATOCRIT % -- -- 27.3* < > 34.0* -- 35.4* PLATELETS K/cumm -- -- 149* < > 185 -- 184 NEUTROS PCT % -- -- -- -- -- -- 67.6 LYMPHS PCT % -- -- -- -- -- -- 21.9 MONOS PCT % -- -- -- -- -- -- 6.4 EOS PCT % -- -- -- -- -- -- 3.0 INR -- -- -- -- 1.2 -- -- < > = values in this interval not displayed. Micro: Lab Results Component Value Date MICROBIOLOGY (.) 06/17/2021 Final Report: Abundant Bacteroides fragilis A molecular marker associated with carbapenem resistance has been detected in this isolate of Bacteroides fragilis. Please see phenotypic antimicrobial susceptibility testing result. Susceptibilities performed by [facility], * * * * * * * * * * * * * * * * * * * * For Bacteroides fragilis susceptibility results, see attached scanned report. * * * * * * * * * * * * * * * * * * * * Few Mixed microorganisms. MICROBIOLOGY 06/16/2021 Final Report: Insignificant growth based on current clinical standards. MICROBIOLOGY Final Report: No growth 06/14/2021 MICROBIOLOGY Final Report: No growth 06/14/2021 MICROBIOLOGY Final Report: No growth 07/13/2020 MICROBIOLOGY Final Report: No growth of fungus 07/13/2020 MICROBIOLOGY (.) 12/19/2019 Final Report: Abundant Escherichia coli * * * * * * * * * * * * * * * * * * * * The susceptibility pattern of this Escherichia coli indicates the possible production of an extended spectrum beta lactamase (ESBL). Patients infected with ESBL-producing organisms require contact isolation precautions. For therapeutic options for this organism, please contact infectious diseases. [x] MC needs A [x] IPAP called, TTE done on 06/12 [x] Primary team: Cleared for surgery [x] DVT ppx: Heparin (held), last eliquis 06/08 [x] 07/05/21 dressing check [x] 07/06/21 CC [x] 07/07/21 dressing change [ ] 07/25/21 alice out if still in house Assessment/Plan: 71 y.o. male p/w the above injuries. Patient is now status post CMN L IT fx 07/04/21 WB Status: Weight bearing as tolerated left lower extremity Immobilization: n/a Activity: Ambulate with assist Therapy: PT/OT for OOB/mobilization as tolerated post-op. Precautions: None DVT ppx: Ok to restart on heparin Drain: n/a Antibiotics: Periop: Ancef 1-2gm IV Q8hrs for 24 hours postoperative Cultures: n/a Wound Care: Surgical dressings were changed on POD3. Okay for nursing to reinforce dressings PRN ifthey become soiled or have shadowing before that time Sutures/Alice: Will be removed 3 weeks after surgical date. Please include on discharge orders ifpatient is going to a facility. If the patient is still in the hospital at that time they will be removed by the orthopedic team. Coombs: Per primary Diet: per primary, speech Additional Needs: n/a Ortho Trauma will sign off at this time, and follow their hospital course peripherally. Please callwith any concerns. Dispo: Per primary service Follow-Up: Patient has follow up scheduled on 07/[address] Delvalle located at [facility] Edited by: Buffy Hidalgo MD at 07/07/2021 0506 Please call with questions during daytime. See below for overnight issues. ??? If you know the resident's name on the appropriate orthopaedic surgery team, please use [email or web address] to page resident directly. ??? If questions arise and the appropriate resident can't be reached or you are calling overnight, please contact [phone] ([facility]- 7:30 PM - 6:30 AM - Floor Resident) or [phone] (24 hours/day - Consult Resident) Cosigned by Yoanna Delvalle MD at 07/09/2021 10:12 PM CDT * Angelica Juarez, RD - 07/06/2021 3:23 PM CDT Nutrition Tube Feeding Assessment Reason for Assessment: follow-up Encounter Date: 07/06/21 3:23 PM Patient is a 71 y.o. male LOS is 25 days. 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 Allergies Allergen Reactions ??? Penicillins Hives Anthropometrics: Wt Readings from Last 3 Encounters: 06/28/21 90 kg (198 lb 6.6 oz) 06/24/21 85.8 kg (189 lb 2.5 oz) 06/18/21 85.8 kg (189 lb 2.5 oz) Anthropometrics Weight: 90 kg (198 lb 6.6 oz) Admission Weight : 80.9 kg Weight Change: 4.20 kg (9.25 lbs) IBW/kg (Calculated) : 78 kg Height: 180.3 cm (5' 10.98 ) Weight in (lb) to have BMI = 25: 178.8 BMI (Calculated): 27.7 Nutrition Needs Calculations: Calculated Energy Needs Using Equations Weight Used for Equation Calculations (RD Determined): 85.8 kg (189 lb 2.5 oz) Weight: 90 kg (198 lb 6.6 oz) Height: 180.3 cm (5' 10.98 ) Minute Ventilation (L/min): 6.6 L/min Estimated Protein Needs Type of Weight Used for Estimated Protein : [place] Protein Needs Based on g/k.2 Total Protein Estimated Needs (gm): 93.6 Kcal/kg Type of Weight Used for Estimated Kcals: Current Kcal/k Total Kcal/kg Estimated Needs : 5 Height: 180.3 cm (5' 10.98 ) Weight: 90 kg (198 lb 6.6 oz) Weight Change: 4.20 kg (9.25 lbs) Medications: Scheduled Meds: docusate, 100 mg, feeding tube, Daily fluticasone furoate-vilanteroL, 1 puff, inhalation, Daily (RT) heparin, 5,000 Units, subcutaneous, Q8H [facility] magnesium oxide, 800 mg, oral, BID metoprolol tartrate, 100 mg, feeding tube, BID miconazole, , topical, BID ryzkgkcw-hae-syarjkd gluconate, 15 mL, feeding tube, Daily pantoprazole DR, 40 mg, oral, Daily pravastatin, 40 mg, feeding tube, Daily ramelteon, 8 mg, feeding tube, Nightly senna, 8.8 mg, feeding tube, BID sodium chloride 0.9%, 0.5-20 mL, intra-catheter, Q8H MON[facility] terazosin, 10 mg, feeding tube, Nightly thiamine, 100 mg, feeding tube, Daily traZODone, 100 mg, feeding tube, Nightly Lab Review: Sodium Date Value Ref Range Status 07/05/2021 138 135 - 145 mmol/L Final Potassium, pl Date Value Ref Range Status 07/05/2021 4.2 3.3 - 4.9 mmol/L Final BUN Date Value Ref Range Status 07/05/2021 13 8 - 25 mg/dL Final Creatinine Date Value Ref Range Status 07/05/2021 0.79 (L) 0.80 - 1.30 mg/dL Final Phosphorus, pl Date Value Ref Range Status 07/05/2021 3.0 2.3 - 4.5 mg/dL Final Magnesium Date Value Ref Range Status 07/05/2021 1.6 1.4 - 2.5 mg/dL Final Calcium Date Value Ref Range Status 07/05/2021 8.9 8.5 - 10.3 mg/dL Final Lab Results Component Value Date HGBA1C 5.2 06/12/2021 Nursing Assessment: Intake/Output Summary (Last 24 hours) at 07/06/2021 1523 Last data filed at 07/06/2021 1235 Gross per 24 hour Intake 405 ml Output 375 ml Net 30 ml Gastrointestinal Gastrointestinal (WDL): Exceptions to WDL Abdomen Inspection: Soft, Nondistended Bowel Sounds (All Quadrants): Active, Present Palpation: Soft Last BM Date: 07/05/21 Passing Flatus: Yes GI Symptoms: None Relieved by: Unrelieved (Comment) Gastrointestinal Additional Assessments: No Last BM Date: 07/05/21 Lew Scale Score: 15 Skin Integrity: Bruising Dietary Orders (From admission, onward) Start Ordered 07/06/21 1047 Oral Nutrition Supplements Select Supplement: Ensure Plus - Abby All Meals Question: Select Supplement: Answer: Ensure Plus - Abby 07/06/21 1046 07/06/21 0656 Adult Diet Restricted; Dysphagia 1 (pureed); Regular Liquid Diet effective now Question Answer Comment ([facility]) Diet type Restricted Modified Consistency: Dysphagia 1 (pureed) Fluid Consistency: Regular Liquid 07/06/21 0659 06/28/21 1217 Oral Nutrition Supplements Select Supplement: Ensure Pudding - Abby All Meals Question: Select Supplement: Answer: Ensure Pudding - Abby 06/28/21 1216 Impression: 07/06: Pt passed swallow evaluation yesterday for dysphagia 1 pureed diet with regular liquids. Pt ate great for breakfast today, consumed 100%. Pt has ensure pudding ordered, now that patient has liquids allowed, will order ensure plus. 07/03: Pt ate better over the weekend with assist with meals. Pt not assisted this morning, did not eat breakfast. Pt continues to be A&Ox2, confused. RN did document lunch today at 100% with help/assist. Noted feeding tube pulled by patient and he ate better with assist over the weekend so tubewas not replaced. Encouraged PO intake. 06/30: Pt ate 0% of lunch and dinner yesterday, today RN reported pt ate 50% of breakfast, however unsure how much was actually consumed. Pt cannot consume liquids, is ordered for ensure pudding at the moment. Team placed dobhoff tube into stomach to help give night cycled tube feeds, order put in. 06/29: Pt with encephalopathy, transferred from neuro floor. Pt with TBI with SAH and IVH. Pt currently noted as A&Ox0. Pt reports he is not sure if he ate breakfast this morning. Pt passed speechtherapy for dysphagia 1 pureed diet with no liquids, pt ordered for ensure pudding to help meet nutrition needs. Pt still has NG tube in place, is currently not being used. Consider tube feeding if pt cannot increase PO intake, however RN notified RD that pt pulled out his feeding tube. Team wanting to see how patient does with meds in applesauce and eating, may need to replace feeding tube tomorrow. Of note, speech therapy was unable to do full normal MBS today due to pt's mental status. Per TEXTILE MACHINE MAINTENANCE MECHANIC, this might be pt's new normal. Consider NG tube placement for now, but consider PEG tube if this w ill be fdc picture. Noted 1 healing wound documented on buttocks. Last documented BM 06/28. Wt Readings from Last 10 Encounters: 06/28/21 90 kg (198 lb 6.6 oz) 06/24/21 85.8 kg (189 lb 2.5 oz) 06/18/21 85.8 kg (189 lb 2.5 oz) 01/25/21 91.6 kg (202 lb) 07/16/20 87.1 kg (192 lb) 07/11/20 86.6 kg (190 lb 14.7 oz) 06/15/20 85.3 kg (188 lb) 02/22/20 88 kg (194 lb 0.1 oz) 01/04/20 78 kg (172 lb) 12/28/19 76.7 kg (169 lb 3.2 oz) NUTRITION DIAGNOSIS Nutrition Diagnosis 1: Inadequate oral intake Related to: Lack of interest Evidenced by: PO under 50% INTERVENTION Currently on dysphagia 1 pureed diet with regular liquids. Encouraged PO intake, snacks, supplements. Continue ensure pudding TID to help meet nutrition needs. Ordered ensure plus TID to help meet nutrition needs. Calorie count: 06/28: B:2 bites, L: 250 calories, D: Not documented 06/29: B: refused, L: refused, D: refused 06/30: B: 50 % per RN report, no ticket, L: 0%, D: 0% 07/01: B: 134 calories, L: no ticket, D: 468 calories 07/02: B: 290 calories, L/D: no ticket 07/03: B: 0%, L: 100%, D: no ticket 07/05: B: 386 calories, L: not yet consumed, D: 302 calories 07/06: B: 352 calories GOAL(S) / MONITORING: Goals: Oral intake to meet 75% estimated nutritional needs by next assessment Interventions: Calorie count, Medical food supplement, Other (comment) (possibly restart TF) Monitoring and Evaluation: Appetite, Labs, PO intake, Stool patterns Angelica Juarez MS RD LD #[phone] * Elizabeth Persaud NP - 07/06/2021 1:42 PM CDT [facility]iatric Trauma Surgery Daily Progress Note Admit: 06/11/2021 6:55 PM Date: July 06, 2021 Length of Stay: 25 Attending: Darrel Wolf,* POD:* No surgery found * History: Jania Redman is a 71 y.o. 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 There was loss of consciousness. Of note, he had an unwitnessed fall the week prior. He was first taken to [facility] via EMS on 06/08 after sustaining fall with LOC at home. At [place] the initial head??CT??was??negative and he was admittedovernight 06/08-06/09 for further evaluation and treatment of possible syncopal episodes. There was reported involuntary movements and nystagmus for which he was loaded with Keppra and planned for EEG, the course of this is unclear. He had reportedly been started on CIWA protocol??with librium.??An MRIlater revealed SAH, IVH, small IPH for which he was ultimately transferred to [facility] as a neurosurgeryprimary patient the evening of 06/11. Overnight 06/11-06/12 the patient was not following commands and was somnolent, worsening following??Ativan administration for high CIWA score. [facility] morning of 06/12??for closer observation. NSGY consulted Medicine servicefor assistance with syncope work-up and management of multiple comorbidities. The patient had ongoing somnolence and lethargy throughout the??morning,??and on??Medicine consult's evaluation, there was concern for??being at risk for airway compromise with his impaired level of consciousness. A nasaltrumpet was placed, and the patient was then transferred to 9400 ICU for closer monitoring. Interval History: 07/06: Hgb 9.4 (10.3), Mg 1.6 (repleted). Overnight HR 90s, SBP 100-110s. Passed mBS for Dysphagia 1diet, regular/thin liquids. Pending placement. 07/05: POD1. Overnight issues Afib with RVR into 160s. 5mg IVP metop x 1, 1L LR bolus. Increased metop to home dose 100mg bid. Patient needs MBS today with speech. Patient needs to work with therapy for dispo planning as well. 07/04: Labs reviewed, no acute events overnight. NPO for OR today with Ortho for CMN. mBS rescheduled for tomorrow. 07/03: No acute events overnight, Cr 0.73 (0.99). Continues on room air, BM x1. More interactive today. Re-engage Neurology for consult for continued AMS. 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 Notified Ortho regarding results of hip MRI. 07/02: No acute events overnight. Continue to encourage assist with all meals. Obtaining MRI today of right hip. Encourage continued work with therapy services. 07/01: SBFT remains in place, tube feeds at goal. CAOx2 this AM. Neurology consulted for hx seizure surrounding his initial fall. Budesonide started. Encourage continued work with therapy services. 06/30: Na 135 (137). Rate controlled A-fib on tele. BG overnight 70 on BMP, 32 on POCT, patient treated w/ applesauce with sugar packets -> BG 90. IVF increased, POCT accuchecks added. Assist w/ feeding, request for SBFT placement, mBS pending, MRI hip pending. Poor PO intake, continue to encourage additional PO. 06/29: WBC 6.3 (10.2), Hgb 12.2 (11.7), Cr 0.98 (0.95), UOP 550 ml. 2 L IVF completed. Repeat orthostatic vitals pending, carotid duplex performed, MRI L hip pending, repeat modified barium swallow pending. PM&R consult placed. Wean O2. D/c Bactrim, Flagyl to be completed today. Will need head CT just prior to discharge per NSGY. Pt pulled out NG tube, started on IVF. 06/28: Transferred from the ICU to the floor in a stable condition. Vitals stable on admission. NG tube, not on any supplemental oxygen. Hard of hearing, difficulty answering questions. Per ICU signout, A&O x 1 at baseline. No active issues at the moment. Pain:controlled Nausea: No Flatus: No Bowel Movement: Yes Medications: Current Facility-Administered Medications: ??? acetaminophen (TYLENOL) tablet 650 mg, 650 mg, feeding tube, Q4H PRN, [place], Cassie Rika, TEXTILE MACHINE MAINTENANCE MECHANIC, 650 mg at 07/05/212128 ??? albuterol 2.5 mg/0.5 mL nebulizer solution 1.25 mg, 1.25 mg, nebulization, Q6H PRN (RT), Jair Jay MD ??? docusate (COLACE) 10 mg/mL oral liquid 100 mg, 100 mg, feeding tube, Daily, Sada العلي NP, 100 mg at 07/06/21 0956 ??? fluticasone furoate-vilanteroL (BREO ELLIPTA) 100-25 mcg/dose inhaler 1 puff, 1 puff, inhalation, Daily (RT), Jahaira Brown NP, 1 puff at 07/06/21 0950 ??? heparin 5,000 unit/mL injection 5,000 Units, 5,000 Units, subcutaneous, Q8H MONET, Elizabeth Persaud NP, 5,000 Units at 07/06/21 1306 ??? magnesium oxide (MAG-OX) tablet 800 mg, 800 mg, oral, BID, Elizabeth Persaud NP, 800 mg at 07/06/21 0956 ??? metoprolol (LOPRESSOR) tablet 100 mg, 100 mg, feeding tube, BID, Vy Munoz NP, 100 mg at 07/06/2156 ??? miconazole (SECURA THICK) 2 % cream, , topical, BID, Andreia Ellis MD, Given at 07/05/21 0759 ??? gscverxt-pbe-pecvxwo gluconate (CENTRUM) 0.6 mg iron/mL oral liquid 15 mL, 15 mL, feeding tube,Daily, Cassie Trent NP, 15 mL at 07/06/21 0956 ??? pantoprazole DR (PROTONIX) extended release tablet 40 mg, 40 mg, oral, Daily, Elizabeth Persaud NP, 40 mg at 07/06/21 0957 ??? pravastatin (PRAVACHOL) tablet 40 mg, 40 mg, feeding tube, Daily, Cassie Trent NP, 40mg at 07/06/21 0956 ??? ramelteon (ROZEREM) tablet 8 mg, 8 mg, feeding tube, Nightly, Tamiko Ray, GARIMA, 8 mg at 07/05/21 1747 ??? senna 1.76 mg/mL syrup 8.8 mg, 8.8 mg, feeding tube, BID, Sada العلي NP, 8.8 mg at07/06/21 0956 ??? sodium chloride 0.9% flush 0.5-20 mL, 0.5-20 mL, intra-catheter, Q8H MONET, Belinda Shaffer MD PhD, 10 mL at 07/05/212131 ??? sodium chloride 0.9% flush 0.5-20 mL, 0.5-20 mL, intra-catheter, PRN, Belinda Shaffer MD PhD, 10 mL at 06/25/21 0745 ??? terazosin (HYTRIN) capsule 10 mg, 10 mg, feeding tube, Nightly, Ciarra Jama NP, 10 mg at 07/05/212128 ??? thiamine (VITAMIN B1) tablet 100 mg, 100 mg, feeding tube, Daily, Jair Jay MD, 100 mg at 07/06/21955 ??? traZODone (DESYREL) tablet 100 mg, 100 mg, feeding tube, Nightly, Ciarra Jama NP,100 mg at 07/05/212128 Diet: Dietary Orders (From admission, onward) Start Ordered 07/06/21 1047 Oral Nutrition Supplements Select Supplement: Ensure Plus - Abby All Meals Question: Select Supplement: Answer: Ensure Plus - Abby 07/06/21 1046 07/06/21 0656 Adult Diet Restricted; Dysphagia 1 (pureed); Regular Liquid Diet effective now Question Answer Comment ([facility]) Diet type Restricted Modified Consistency: Dysphagia 1 (pureed) Fluid Consistency: Regular Liquid 07/06/21 0659 06/28/21 1217 Oral Nutrition Supplements Select Supplement: Ensure Pudding - Abby All Meals Question: Select Supplement: Answer: Ensure Pudding - Abby 06/28/21 1216 Activity: As tolerated Is&Os: I/O last 2 completed shifts: In: - Out: 400 [Urine:400] I/O this shift: In: 405 [P.O.:405] Out: 225 [Urine:225] Physical Exam: 24hr Min/Max: Temp Min: 36.3 ??C (97.3 ??F) Max: 37.4 ??C (99.3 ??F) Pulse Min: 81 Max: 96 BP Min: 108/76 Max: 143/86 Resp Min: 18 Max: 20 SpO2 Min: 95 % Max: 96 % Vitals: 07/06/21 1204 BP: 112/90 Pulse: 81 Resp: 18 Temp: 37.4 ??C (99.3 ??F) SpO2: 95% Constitutional: well developed, well nourished, cooperative and no apparent distress Head: normocephalic, without obvious abnormality, atraumatic Neurologic: oriented to person cranial Nerves II-XII intact sensation intact all extremities demonstrated purposeful movement in all 4 extremities Eyes: PERRL, pupils: Bilateral: reactive and size 2 mm, conjunctiva normal, left ptosis HENT: lips, mucosa, and tongue normal Neck: supple, symmetrical, trachea midline Chest: normal appearance, no masses or tenderness Respiratory: normal chest rise and fall, diminished breath sounds bilateral and on room air Cardiovascular: regular rate and irregularly irregular rhythm Gastrointestinal: bowel sounds present, non-distended and soft non-tender Musculoskeletal: extremities normal, warm and well-perfused and no edema Pulses: PT: bilateral normal Skin: skin color, texture, turgor normal. No rashes or lesions or incision L lateral hip incision intact. no active drainage or bleeding noted, dressing to mid thigh torn, alice intact, no drainageor erythema from incision Drains: condom cath, dark yellow efflux Labs/Imaging: Recent Results (from the past 72 hour(s)) POCT glucose Collection Time: 07/03/21 10:33 PM Result Value Ref Range Glucose, POC 97 70 - 199 mg/dL Basic metabolic panel Collection Time: 07/03/21 10:35 PM Result Value Ref Range Sodium 140 135 - 145 mmol/L Potassium, pl 4.4 3.3 - 4.9 mmol/L Chloride 105 97 - 110 mmol/L CO2 29 22 - 32 mmol/L Anion gap 6 2 - 15 mmol/L BUN 13 8 - 25 mg/dL Creatinine 0.75 (L) 0.80 - 1.30 mg/dL Glucose 106 70 - 199 mg/dL Calcium 9.6 8.5 - 10.3 mg/dL CBC without differential Collection Time: 07/03/21 10:35 PM Result Value Ref Range WBC 6.5 3.8 - 9.9 K/cumm Hgb 11.8 (L) 13.0 - 17.5 g/dL Hct 34.0 (L) 38.9 - 50.3 % Plt 185 150 - 400 K/cumm MPV 10.2 9.1 - 12.3 fL RBC 3.45 (L) 4.30 - 5.80 M/cumm MCV 98.6 (H) 81.3 - 96.4 fL MCH 34.2 (H) 27.1 - 33.3 pg MCHC 34.7 32.3 - 35.7 g/dL RDW CV 12.2 11.1 - 14.9 % RDW SD 44.1 35.7 - 48.1 fL NRBC abs 0.00 0.00 - 0.01 K/cumm Magnesium Collection Time: 07/03/21 10:35 PM Result Value Ref Range Magnesium 1.7 1.4 - 2.5 mg/dL Type and screen Collection Time: 07/03/21 10:35 PM Result Value Ref Range Nancy, indirect Negative ABO Rh O Positive Protime-INR Collection Time: 07/03/21 10:35 PM Result Value Ref Range PT 12.8 9.5 - 13.6 sec INR 1.2 0.9 - 1.2 eGFR Collection Time: 07/03/21 10:35 PM Result Value Ref Range eGFR >90 90 - 130 mL/min/1.73 m2 POCT glucose Collection Time: 07/04/21 5:27 PM Result Value Ref Range Glucose, POC 99 70 - 199 mg/dL ECG 12 lead Collection Time: 07/04/21 7:56 PM Result Value Ref Range Ventricular Rate EKG/Min 156 BPM Atrial Rate 326 BPM QRS-Interval (MSEC) 72 ms QT-Interval (MSEC) 294 ms QTc 473 ms R [place] 46 degrees T [place] 198 degrees Diagnosis Atrial fibrillation with rapid ventricular response Nonspecific ST and T wave abnormality Abnormal ECG When compared with ECG of 13-JUN-2021 23:38, Vent. rate has increased BY 78 BPM Nonspecific T wave abnormality no longer evident in Anterior leads Confirmed by KERRY NICOLE M.D ([id number]) on 07/05/2021 9:58:52 PM POCT glucose Collection Time: 07/04/21 11:38 PM Result Value Ref Range Glucose, POC 107 70 - 199 mg/dL Basic metabolic panel Collection Time: 07/05/21 2:19 AM Result Value Ref Range Sodium 140 135 - 145 mmol/L Potassium, pl 4.6 3.3 - 4.9 mmol/L Chloride 108 97 - 110 mmol/L CO2 24 22 - 32 mmol/L Anion gap 8 2 - 15 mmol/L BUN 11 8 - 25 mg/dL Creatinine 0.83 0.80 - 1.30 mg/dL Glucose 97 70 - 199 mg/dL Calcium 8.8 8.5 - 10.3 mg/dL CBC without differential Collection Time: 07/05/21 2:19 AM Result Value Ref Range WBC 6.7 3.8 - 9.9 K/cumm Hgb 10.3 (L) 13.0 - 17.5 g/dL Hct 29.8 (L) 38.9 - 50.3 % Plt 140 (L) 150 - 400 K/cumm MPV 10.4 9.1 - 12.3 fL RBC 2.98 (L) 4.30 - 5.80 M/cumm MCV 100.0 (H) 81.3 - 96.4 fL MCH 34.6 (H) 27.1 - 33.3 pg MCHC 34.6 32.3 - 35.7 g/dL RDW CV 12.6 11.1 - 14.9 % RDW SD 45.2 35.7 - 48.1 fL NRBC abs 0.00 0.00 - 0.01 K/cumm Magnesium Collection Time: 07/05/21 2:19 AM Result Value Ref Range Magnesium 1.5 1.4 - 2.5 mg/dL eGFR Collection Time: 07/05/21 2:19 AM Result Value Ref Range eGFR >90 90 - 130 mL/min/1.73 m2 POCT glucose Collection Time: 07/05/21 8:04 AM Result Value Ref Range Glucose, POC 91 70 - 199 mg/dL POCT glucose Collection Time: 07/05/21 11:27 AM Result Value Ref Range Glucose, POC 144 70 - 199 mg/dL POCT glucose Collection Time: 07/05/21 5:47 PM Result Value Ref Range Glucose, POC 99 70 - 199 mg/dL POCT glucose Collection Time: 07/05/21 11:32 PM Result Value Ref Range Glucose, POC 111 70 - 199 mg/dL Basic metabolic panel Collection Time: 07/05/21 11:33 PM Result Value Ref Range Sodium 138 135 - 145 mmol/L Potassium, pl 4.2 3.3 - 4.9 mmol/L Chloride 107 97 - 110 mmol/L CO2 27 22 - 32 mmol/L Anion gap 4 2 - 15 mmol/L BUN 13 8 - 25 mg/dL Creatinine 0.79 (L) 0.80 - 1.30 mg/dL Glucose 104 70 - 199 mg/dL Calcium 8.9 8.5 - 10.3 mg/dL CBC without differential Collection Time: 07/05/21 11:33 PM Result Value Ref Range WBC 6.3 3.8 - 9.9 K/cumm Hgb 9.4 (L) 13.0 - 17.5 g/dL Hct 27.3 (L) 38.9 - 50.3 % Plt 149 (L) 150 - 400 K/cumm MPV 10.7 9.1 - 12.3 fL RBC 2.75 (L) 4.30 - 5.80 M/cumm MCV 99.3 (H) 81.3 - 96.4 fL MCH 34.2 (H) 27.1 - 33.3 pg MCHC 34.4 32.3 - 35.7 g/dL RDW CV 12.5 11.1 - 14.9 % RDW SD 45.0 35.7 - 48.1 fL NRBC abs 0.00 0.00 - 0.01 K/cumm Magnesium Collection Time: 07/05/21 11:33 PM Result Value Ref Range Magnesium 1.6 1.4 - 2.5 mg/dL Phosphorus Collection Time: 07/05/21 11:33 PM Result Value Ref Range Phosphorus, pl 3.0 2.3 - 4.5 mg/dL eGFR Collection Time: 07/05/21 11:33 PM Result Value Ref Range eGFR >90 90 - 130 mL/min/1.73 m2 POCT glucose Collection Time: 07/06/21 7:57 AM Result Value Ref Range Glucose, POC 107 70 - 199 mg/dL POCT glucose Collection Time: 07/06/21 11:20 AM Result Value Ref Range Glucose, POC 125 70 - 199 mg/dL No results found. Assessment and Plan: Active Problems: Hypercholesterolemia Hypertension Atrial fibrillation (CMS/HCC) ([facility]) Chronic systolic heart failure (CMS/HCC) ([facility]) TBI (traumatic brain injury) (CMS/HCC) (HCC) SAH (subarachnoid hemorrhage) ([facility]/HCC) ([facility]) Encephalopathy Acute delirium Scrotal abscess Closed nondisplaced intertrochanteric fracture of left femur ([facility]) ([facility]) Dysphagia Orthostatic hypotension Acute respiratory failure (HCC) Acute on chronic anemia Thrombocytopenia (CMS/HCC) ([facility]) #Traumatic brain injury with SAH and intraventricular hemorrhage - Admitted to NSGY - Keppra 500mg BID x7 days completed - Neuro checks q4hr - PM&R consult completed, rec SNF/LTC, continued PT/OT/COTTAGE CHEESE MAKER - Head CT (07/02) with decreasing IVH - No need for NSGY follow-up, NSGY signed off #Encephalopathy - Etiology seems to be multifactorial with alcohol withdrawal (received librium at OSH), TBI, hospital admission/delirium, possible Wernicke's - s/p 9 days folic acid, 3 days 500 mg IV q8h, thiamine followed by 250 mg x5 days - Neurology consult - signed off - Delirium precautions - If worsening mental status, consider repeat infectious work-up and/or routine EEG - MVI daily and thiamine 100 mg daily indefinitely #COPD #Acute on chronic respiratory failure - resolved - No home medications - Extubated 06/18 - Patient arrived to floor on face tent - 06/30: on room air - Wean O2 for SpO2 goal 88-92% - Breo-Ellipta started 07/01 for maintenance - PRN albuterol - Incentive spirometry, acapella, CPT #Chronic systolic heart failure - per Cardiology note from 01/25/21: asymptomatic mild LV dysfunction, suspect tachycardia mediated - Previously EF 45-50% (2020), now EF 70-75% as of 06/13 - Increased metoprolol to home dose 100 mg BID - Holding home lisinopril, restart after OR if appropriate #Atrial fibrillation with RVR - s/p amio gtt 06/13-06/14; will need outpatient f/u with Panelboard Operator - Metoprolol 100 mg BID for rate control (home dose) - 07/04 RVR 160s post op, 5mg IVP metop x 1, 1L LR bolus - Goal HR <120 - Telemetry #Syncope/Orthostatic hypotension - + orthostatic symptoms as outpatient per and + orthostatics at OSH - TTE unrevealing - Orthostatics positive 06/22 - Received 2 L fluid on 06/28-06/29 - Carotid duplex with less than 50% stenosis bilaterally #Dysphagia due to TBI - On dysphagia 1 diet with NO liquids - Continue calorie count x3 days to ensure adequate PO (initiated on 06/27, continue through 06/30), Nutrition following - NG tube placed for meds, removed by patient on 06/29 - Cognition poor requiring frequent redirection, repeat mBS pending - 2 L IVF completed 06/29 - SBFT placed 06/30, autoremoved by patient 07/01 - Assist 100% with all meals - final operations technician following - Calorie count - Repeat mBS pending 07/05 - passed for regular/thin liquids, DDI diet, meds crushed in puree #Left IT fracture - Ortho consult - Mobilization trial failed - MRI of left hip (07/03) with nondisplaced proximal IT fx - Re-engaged Ortho on 07/03 - 07/04: OR with Ortho for L CMN - LLE WBAT - Valentine-op Ancef x 24 hrs completed - POD3 dressing change by Ortho (07/07/21) - [place] to be removed 3 weeks post-op (07/25/21) - Pain control, PT/OT - Follow-up scheduled on 07/[address] Delvalle located at [facility] #Bacteroides fragilis scrotal abscess and cellulitis - US scrotum (06/17) with left hydrocele and cellulitis - CT pelvis w contrast (06/17) positive for small left scrotal hydrocele, negative for soft tissue gas, and positive for non-displaced trochanteric fracture - Urology consulted:10 day course abx and should heal on its own, call if infection appears worse or changes - Clindamycin discontinued 06/20 - Continue flagyl and bactrim through 06/29 for a total of 12 days since susceptibilities are not back yet - f/u susceptibilities: susceptible to flagyl - Bactrim d/c'd 06/29, Flagyl completed 06/29 #HTN - Home lisinopril 40 mg daily on hold, restart as able - Home lasix 40 mg daily on hold, restart as able - Continue metoprolol - SBP goal <160 #HLD - Continue pravastatin 40 mg daily #Thrombocytopenia - Plt 137 on admission - No history of thrombocytopenia - 07/03: Plt 185 - 07/05: Plt 140 - 07/06: Plt 149 - likely reactive in setting of surgery - CBC as indicated #ABLA on chronic anemia - History of anemia, baseline Hgb ~10-12 - Post op Hgb 10.3 (11.8) on 07/05 - 07/06: Hgb 9.4, asymptomatic - CBC as indicated #DVT ppx: heparin subQ #Dispo: SNF vs rehab Mauro Persaud NP Cosigned by Deacon Ronald Gardner MD at 07/08/2021 1:08 PM CDT * Buffy Hidalgo MD - 07/06/2021 5:09 AM CDT Orthopaedic Trauma Service Daily Progress Note Admit Date: 06/11/2021 Hospital Day: 25 MBB Dx: L IT fx Injury Mechanism: SLMF OI: TBI, SAH; chronic draining scrotal abscess PMHx: HTN, atrial fibrillation (on eliquis, last 06/08), CHF, COPD Plan: CMN L IT fx. Procedure(s): 07/04/21- CMN L IT fx , HPI: 71 y.o.male s/p SLMF p/w L IT fx. Fell around 06/06/2021, sustained TBI and SAH, has been encephalopathic w/ AMS since in NICU. Has not been ambulatory 2/2 AMS requiring lift for transfers. Injurynoted on CT abdomen performed for scrotal abscess. Exam: Intermittently participatory on exam, responding yes to all questions. Skin intact. No perceivable pain with logroll/hip ROM, actively moving LLE. Distally motor intact, WWP. OI: SAH/TBI. Consulting Services: Neuro ICU primary, NSGY. PMHx: HTN, atrial fibrillation (on eliquis, last 3), CHF, COPD. Soc Hx: + EtOH w/ withdrawals, unkn drugs , retired, lives w/ spouse. Interval History: CC. AFVSS. Hgb 9.4 (10.3). Transferred w PT. MBS yesterday. Dispo per GTS. Edited by: Buffy Hidalgo MD at 07/06/2021 3876 Objective Vitals: 24hr Min/Max: Temp Min: 36.3 ??C (97.3 ??F) Max: 36.9 ??C (98.4 ??F) Pulse Min: 81 Max: 116 BP Min: 102/76 Max: 143/95 Resp Min: 18 Max: 20 SpO2 Min: 94 % Max: 96 % I/O last 2 completed shifts: In: - Out: 850 [Urine:850] No intake/output data recorded. Lab/Diagnostic Review: Recent Labs Lab Units 07/05/21 2333 07/04/21 1727 07/03/21 2235 07/03/21 2233 07/03/21 0008 SODIUM mmol/L 138 < > 140 -- 138 POTASSIUM PLASMA mmol/L 4.2 < > 4.4 -- 4.3 CHLORIDE mmol/L 107 < > 105 -- 106 CO2 mmol/L 27 < > 29 -- 26 ANIONGAP mmol/L 4 < > 6 -- 6 GLUCOSE mg/dL 104 < > 106 -- 121 POC GLUCOSE MONITOR -- < > -- < > -- BUN SERUM mg/dL 13 < > 13 -- 12 CREATININE mg/dL 0.79* < > 0.75* -- 0.73* CALCIUM mg/dL 8.9 < > 9.6 -- 9.1 WBC K/cumm 6.3 < > 6.5 -- 6.3 HEMOGLOBIN g/dL 9.4* < > 11.8* -- 11.9* HEMATOCRIT % 27.3* < > 34.0* -- 35.4* PLATELETS K/cumm 149* < > 185 -- 184 NEUTROS PCT % -- -- -- -- 67.6 LYMPHS PCT % -- -- -- -- 21.9 MONOS PCT % -- -- -- -- 6.4 EOS PCT % -- -- -- -- 3.0 INR -- -- 1.2 -- -- < > = values in this interval not displayed. Micro: Lab Results Component Value Date MICROBIOLOGY (.) 06/17/2021 Final Report: Abundant Bacteroides fragilis A molecular marker associated with carbapenem resistance has been detected in this isolate of Bacteroides fragilis. Please see phenotypic antimicrobial susceptibility testing result. Susceptibilities performed by [facility], * * * * * * * * * * * * * * * * * * * * For Bacteroides fragilis susceptibility results, see attached scanned report. * * * * * * * * * * * * * * * * * * * * Few Mixed microorganisms. MICROBIOLOGY 06/16/2021 Final Report: Insignificant growth based on current clinical standards. MICROBIOLOGY Final Report: No growth 06/14/2021 MICROBIOLOGY Final Report: No growth 06/14/2021 MICROBIOLOGY Final Report: No growth 07/13/2020 MICROBIOLOGY Final Report: No growth of fungus 07/13/2020 MICROBIOLOGY (.) 12/19/2019 Final Report: Abundant Escherichia coli * * * * * * * * * * * * * * * * * * * * The susceptibility pattern of this Escherichia coli indicates the possible production of an extended spectrum beta lactamase (ESBL). Patients infected with ESBL-producing organisms require contact isolation precautions. For therapeutic options for this organism, please contact infectious diseases. [x] needs A [x] IPAP called, TTE done on 06/12 [x] Primary team: Cleared for surgery [x] DVT ppx: Heparin (held), last eliquis 06/08 [x] 07/05/21 dressing check [x] 07/06/21 CC [ ] 07/07/21 dressing change [ ] 07/25/21 alice out if still in house Assessment/Plan: 71 y.o. male p/w the above injuries. Patient is now status post CMN L IT fx 07/04/21 WB Status: Weight bearing as tolerated left lower extremity Immobilization: n/a Activity: Ambulate with assist Therapy: PT/OT for OOB/mobilization as tolerated post-op. Precautions: None DVT ppx: Ok to restart on heparin Drain: n/a Antibiotics: Periop: Ancef 1-2gm IV Q8hrs for 24 hours postoperative Cultures: n/a Wound Care: Surgical dressings will be changed on POD3. Okay for nursing to reinforce dressings PRNif they become soiled or have shadowing before that time Sutures/[place]: Will be removed 3 weeks after surgical date. Please include on discharge orders ifpatient is going to a facility. If the patient is still in the hospital at that time they will be removed by the orthopedic team. [place]: Per primary Diet: per primary, speech Additional Needs: n/a Ortho Trauma will continue to follow this patient's hospital course. Dispo: Pending progress, postoperative recovery, and progress with therapy Follow-Up: Patient has follow up scheduled on 07/[address] Delvalle located at [facility] Edited by: Buffy Hidalgo MD at 07/06/2021 [id number] Please call with questions during daytime. See below for overnight issues. ??? If you know the resident's name on the appropriate orthopaedic surgery team, please use [email or web address] to page resident directly. ??? If questions arise and the appropriate resident can't be reached or you are calling overnight, please contact [phone] ([facility]- 7:30 PM - 6:30 AM - Floor Resident) or [phone] (24 hours/day - Consult Resident) Cosigned by Yoanna Delvalle MD at 07/09/2021 10:12 PM CDT * Emerita [facility] OT - 07/05/2021 2:38 PM CDT Occupational Therapy Occupational Therapy Progress Note NOTE: This is a summary note of the troy components of the treatment session. For full details, review chart for all flowsheets documented on by this occupational therapy clinician on this date. Vitalsigns documented in vital signs flowsheet. Care plan progress documented in Care Plan Activity. For questions, please review the treatment team and contact the occupational therapist currently assigned to this patient. If an occupational therapist is not assigned to this patient, please call [phone]. 07/05/21 0904 General Session Type Treatment OT Received On 07/05/21 Safe Environment Arm Band Checked;Call Light within Reach;Notified RN;Patient found in Supine;Overbed Table within Reach (Pt left in chair with all needs met) Subjective Agreeable to Therapy Family/Caregiver Present No Precautions Precautions Fall risk Weight Bearing Restrictions Yes LLE Weight Bearing WBAT Pain Assessment Pain Assessment 0-10 Selby-Yang FACES Pain Rating 0 Pain Score 5 - Moderate pain Patient's Stated Pain Goal 1 Pain Location Leg Pain Orientation Left Pain Interventions RN Notified Balance Balance Yes Static Sitting Balance Static Sitting-Balance Support Feet supported;Bilateral upper extremity supported Static Sitting-Sitting Surface Bed Static Sitting-Level of Assistance Moderate assistance Static Sitting-Comment/# of Minutes safety 2/2 posterior and lateral leaning Dynamic Sitting Balance Dynamic Sitting-Balance Support Feet supported;No upper extremity supported Dynamic Sitting-Balance Lateral lean;Forward lean;Reaching for objects Dynamic Sitting-Sitting Surface Bed Dynamic Sitting-Level of Assistance Maximum assistance Dynamic Sitting-Comments safety 2/2 posterior and lateral leaning Static Standing Balance Static Standing-Balance Support Bilateral upper extremity supported (using OT and PCT) Static Standing-Standing Surface Floor Static Standing-Level of Assistance Maximum assistance (x2) Static Standing-Comment/# of Minutes Pt required assist for safety 2/2 decreased hip extension to maintain upright posture ADL ADLS (WDL) X Feeding Feeding: Where assessed Chair Feeding: Level of assistance Moderate Assist Feeding: Assistance with Hand to mouth;Scooping food Response to foods trialed Pt able to bring food to mouth once set up on spoon for him. Pt would require intermittent tactile cueing to initiate spoon to mouth movement Grooming Grooming: Where assessed Chair Grooming: Level of assistance Moderate Assist Grooming: Assistance with Increased time to complete;Safety;Reaching all areas of head/face LE Dressing LE Dressing: Where assessed Edge of bed LE Dressing: Level of assistance Maximum Assist LE Dressing: Assistance with Don/doff R sock;Don/doff L sock;Thread RLE into pants;Thread LLE into pants;Thread RLE into underwear;Thread LLE into underwear;Pull up over hips;Fasteners;Tie shoes Toileting Toileting: Where assessed Chair Toileting: Level of assistance Maximum Assist Toileting: Assistance with Increased time to complete;Clothing management up;Clothing management down;Posterior Bed Mobility Bed Mobility Yes Bed Mobility 1 Bed Mobility From 1 Supine Bed Mobility Type 1 To Bed Mobility to 1 Edge of bed Level of Assistance 1 Maximum Assist Bed Mobility Comments 1 Pt required assist for manuevering of BLE, trunk elevation, force production and safety. Pt required max verbal cueing for sequencing of transfer technique Transfers Transfer Yes Transfer 1 Transfer From 1 Sit Transfer Type 1 To and from Transfer to 1 Stand Technique 1 Sit to stand;Stand to sit Transfer Device 1 No device;Hand held assist Transfer Level of Assistance 1 Maximum Assist (x2) Trials/Comments 1 Pt required assist for safety, balance, and force production. Pt with increased difficulty extending hips to achieve full standing position. Toilet Transfers Toilet Transfer From Bed Toilet Transfer Type To Toilet Transfer to Standard bedside commode (simulated with chair) Toilet Transfer Technique Stand pivot Toilet Transfer: Equipment Hand hold;No device Toilet Transfers Maximal assistance (x2) Toilet Transfers Comments Pt required assist for safety, balance, and force production. Pt with increased difficulty extending hips to achieve full standing position. Cognition Arousal/Alertness Alert;Delayed responses to stimuli Attention Span Attends with cues to redirect Current communication Appears Intact Orientation Oriented to person Following Commands Follows one step commands with repetition (Pt blind and [place]) Safety Judgment Decreased awareness of need for assistance Awareness of Errors Decreased awareness of errors Insight Decreased awareness of deficits Problem Solving Assistance required to implement solutions;Assistance required to identify errors made;Assistance required to generate solutions Compliance/Behavior Easy to engage Perseveration Not present Daily Activity - 6 Clicks Putting on and taking off regular lower body clothing 2 Bathing 2 Toileting 2 Putting on and taking off upper body clothing 2 Personal Grooming 2 Eating Meals 2 Total Score (range 6-24) 12 Score Interpretation 30.60 Assessment Problem List Decreased safe judgment during ADL;Decreased cognition;Decreased endurance;Decreased balance;Decreased functional mobility;Decreased fine motor control;Decreased gross motor control;Decreased ADL independence;Decreased IADL independence;Pain;Decreased ROM Barriers to Discharge Current Mobility Status Plan Plan Continue with current plan;If this is the last note, consider this the discharge summary Recommendation/Plan OT Recommendation Inpatient Rehab Facility OT Frequency 5-7x/wk Treatment/Interventions ADL/IADL retraining;Balance Training;Bed mobility;Endurance training;Functional activity;Functional mobility training;Functional transfer training;Strengthening;Therapeutic act ivity;Therapeutic exercise;Transfer training Progress Slow progress, decreased activity tolerance OT - Next Appointment 07/06/21 Multi-Disciplinary Problems (from Occupational Therapy) Active Problems Problem: Grooming Start Date: 06/29/21 Goal Start Date Expected End Date End Date STG - Patient will complete grooming 06/29/21 07/06/21 -- Goal Details: In unsupported sitting with Mod A Problem: Transfers Start Date: 06/29/21 Goal Start Date Expected End Date End Date STG - Patient will perform toilet transfer 06/29/21 07/06/21 -- Goal Details[place] [facility] [place] Problem: OT Misc Start Date: 06/29/21 Goal Start Date Expected End Date End Date OT STG - Misc 1 06/29/21 07/06/21 -- Goal Details: Patient will maintain static and dynamic sitting balance with mod A in preparation for ADL tasks. Goal Start Date Expected End Date End Date OT STG - Misc 2 06/29/21 07/06/21 -- Goal Details: Patient will follow one step commands with no verbal cues Problem: Dressings Lower Extremities Start Date: 07/03/21 Goal Start Date Expected End Date End Date STG - Patient to complete lower body dressing 07/03/21 07/10/21 -- Goal Details: With min A Problem: Toileting Start Date: 07/03/21 Goal Start Date Expected End Date End Date STG - Patient will complete toileting tasks with 07/03/21 07/10/21 -- Goal Details: With Min A Reviewed By Tamiko Salazar RN 06/24/21 0140 Tamiko Salazar RN 06/23/21 0351 * Angelica Juarez RD - 07/05/2021 2:37 PM CDT Nutrition Tube Feeding Assessment Reason for Assessment: follow-up Encounter Date: 07/05/21 2:37 PM Patient is a 71 y.o. male LOS is 24 days. 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 Allergies Allergen Reactions ??? Penicillins Hives Anthropometrics: Wt Readings from Last 3 Encounters: 06/28/21 90 kg (198 lb 6.6 oz) 06/24/21 85.8 kg (189 lb 2.5 oz) 06/18/21 85.8 kg (189 lb 2.5 oz) Anthropometrics Weight: 90 kg (198 lb 6.6 oz) Admission Weight : 80.9 kg Weight Change: 4.20 kg (9.25 lbs) IBW/kg (Calculated) : 78 kg Height: 180.3 cm (5' 10.98 ) Weight in (lb) to have BMI = 25: 178.8 BMI (Calculated): 27.7 Nutrition Needs Calculations: Calculated Energy Needs Using Equations Weight Used for Equation Calculations (RD Determined): 85.8 kg (189 lb 2.5 oz) Weight: 90 kg (198 lb 6.6 oz) Height: 180.3 cm (5' 10.98 ) Minute Ventilation (L/min): 6.6 L/min Estimated Protein Needs Type of Weight Used for Estimated Protein : [place] Protein Needs Based on g/k.2 Total Protein Estimated Needs (gm): 93.6 Kcal/kg Type of Weight Used for Estimated Kcals: Current Kcal/k Total Kcal/kg Estimated Needs : 2144 Height: 180.3 cm (5' 10.98 ) Weight: 90 kg (198 lb 6.6 oz) Weight Change: 4.20 kg (9.25 lbs) Medications: Scheduled Meds: docusate, 100 mg, feeding tube, Daily fluticasone furoate-vilanteroL, 1 puff, inhalation, Daily (RT) heparin, 5,000 Units, subcutaneous, Q8H MONET metoprolol tartrate, 100 mg, feeding tube, BID miconazole, , topical, BID ukulooxv-rsb-xyvyudh gluconate, 15 mL, feeding tube, Daily pantoprazole, 40 mg, intravenous, Daily pravastatin, 40 mg, feeding tube, Daily ramelteon, 8 mg, feeding tube, Nightly senna, 8.8 mg, feeding tube, BID sodium chloride 0.9%, 0.5-20 mL, intra-catheter, Q8H MONET terazosin, 10 mg, feeding tube, Nightly thiamine, 100 mg, feeding tube, Daily traZODone, 100 mg, feeding tube, Nightly Lab Review: Sodium Date Value Ref Range Status 07/05/2021 140 135 - 145 mmol/L Final Potassium, pl Date Value Ref Range Status 07/05/2021 4.6 3.3 - 4.9 mmol/L Final BUN Date Value Ref Range Status 07/05/2021 11 8 - 25 mg/dL Final Creatinine Date Value Ref Range Status 07/05/2021 0.83 0.80 - 1.30 mg/dL Final Magnesium Date Value Ref Range Status 07/05/2021 1.5 1.4 - 2.5 mg/dL Final Calcium Date Value Ref Range Status 07/05/2021 8.8 8.5 - 10.3 mg/dL Final Lab Results Component Value Date HGBA1C 5.2 06/12/2021 Nursing Assessment: Intake/Output Summary (Last 24 hours) at 07/05/2021 1437 Last data filed at 07/05/2021 0933 Gross per 24 hour Intake -- Output 750 ml Net -750 ml Gastrointestinal Gastrointestinal (WDL): Exceptions to WDL Abdomen Inspection: Soft, Nondistended Bowel Sounds (All Quadrants): Active, Present Palpation: Soft Last BM Date: 07/02/21 Passing Flatus: Yes GI Symptoms: None Relieved by: Unrelieved (Comment) Gastrointestinal Additional Assessments: No Last BM Date: 07/02/21 Lew Scale Score: 15 Skin Integrity: Bruising, Abrasion, Redness Dietary Orders (From admission, onward) Start Ordered 07/04/21 1239 Adult Diet Restricted; Dysphagia 1 (pureed); No Liquid Diet effective now Question Answer Comment ([facility]) Diet type Restricted Modified Consistency: Dysphagia 1 (pureed) Fluid Consistency: No Liquid 07/04/21 1238 06/28/21 1217 Oral Nutrition Supplements Select Supplement: Ensure Pudding - Abby All Meals Question: Select Supplement: Answer: Ensure Pudding - Abby 06/28/21 1216 Impression: 07/05: Pt ate some breakfast with RN assistance, was off the floor for GIGU during lunchtime, nothing consumed off tray at time of visit. Monitor for MBS results and diet advancement. 07/03: Pt ate better over the weekend with assist with meals. Pt not assisted this morning, did not eat breakfast. Pt continues to be A&Ox2, confused. RN did document lunch today at 100% with help/assist. Noted feeding tube pulled by patient and he ate better with assist over the weekend so tubewas not replaced. Encouraged PO intake. 06/30: Pt ate 0% of lunch and dinner yesterday, today RN reported pt ate 50% of breakfast, however unsure how much was actually consumed. Pt cannot consume liquids, is ordered for ensure pudding at the moment. Team placed dobhoff tube into stomach to help give night cycled tube feeds, order put in. 06/29: Pt with encephalopathy, transferred from neuro floor. Pt with TBI with SAH and IVH. Pt currently noted as A&Ox0. Pt reports he is not sure if he ate breakfast this morning. Pt passed speechtherapy for dysphagia 1 pureed diet with no liquids, pt ordered for ensure pudding to help meet nutrition needs. Pt still has NG tube in place, is currently not being used. Consider tube feeding if pt cannot increase PO intake, however RN notified RD that pt pulled out his feeding tube. Team wanting to see how patient does with meds in applesauce and eating, may need to replace feeding tube tomorrow. Of note, speech therapy was unable to do full normal MBS today due to pt's mental status. Per [employer]CH[employer]IC, this might be pt's new normal. Consider NG tube placement for now, but consider PEG tube if this w ill be fdc picture. Noted 1 healing wound documented on buttocks. Last documented BM 06/28. Wt Readings from Last 10 Encounters: 06/28/21 90 kg (198 lb 6.6 oz) 06/24/21 85.8 kg (189 lb 2.5 oz) 06/18/21 85.8 kg (189 lb 2.5 oz) 01/25/21 91.6 kg (202 lb) 07/16/20 87.1 kg (192 lb) 07/11/20 86.6 kg (190 lb 14.7 oz) 06/15/20 85.3 kg (188 lb) 02/22/20 88 kg (194 lb 0.1 oz) 01/04/20 78 kg (172 lb) 12/28/19 76.7 kg (169 lb 3.2 oz) NUTRITION DIAGNOSIS Nutrition Diagnosis 1: Inadequate oral intake Related to: Lack of interest Evidenced by: PO under 50% INTERVENTION Currently on dysphagia 1 pureed diet with no liquids. Monitor for speech therapy and diet advancement. Encouraged PO intake. Continue ensure pudding TID to help meet nutrition needs. Calorie count: 06/28: B:2 bites, L: 250 calories, D: Not documented 06/29: B: refused, L: refused, D: refused 06/30: B: 50 % per RN report, no ticket, L: 0%, D: 0% 07/01: B: 134 calories, L: no ticket, D: 468 calories 07/02: B: 290 calories, L/D: no ticket 07/03: B: 0%, L: 100%, D: no ticket 07/05: B: 386 calories, L: not yet consumed GOAL(S) / MONITORING: Goals: Oral intake to meet 75% estimated nutritional needs by next assessment Interventions: Calorie count, Medical food supplement, Other (comment) (possibly restart TF) Monitoring and Evaluation: Appetite, Labs, PO intake, Stool patterns Angelica Juarez, MS RD LD #[phone] * Buffy Hidalgo MD - 07/05/2021 1:13 PM CDT Orthopaedic Trauma Service Daily Progress Note Admit Date: 06/11/2021 Hospital Day: 24 MBB Dx: L IT fx Injury Mechanism: SLMF OI: TBI, SAH; chronic draining scrotal abscess PMHx: HTN, atrial fibrillation (on eliquis, last 06/08), CHF, COPD Plan: CMN L IT fx. Procedure(s): 07/04/21- CMN L IT fx , HPI: 71 y.o.male s/p SLMF p/w L IT fx. Fell around 06/06/2021, sustained TBI and SAH, has been encephalopathic w/ AMS since in NICU. Has not been ambulatory 2/2 AMS requiring lift for transfers. Injurynoted on CT abdomen performed for scrotal abscess. Exam: Intermittently participatory on exam, responding yes to all questions. Skin intact. No perceivable pain with logroll/hip ROM, actively moving LLE. Distally motor intact, WWP. OI: SAH/TBI. Consulting Services: Neuro ICU primary, NSGY. PMHx: HTN, atrial fibrillation (on eliquis, last 06/08), CHF, COPD. Soc Hx: + EtOH w/ withdrawals, unkn drugs , retired, lives w/ spouse. Interval History: Mildly tachy to 101, o/w AOVSS. Labs stable. Hgb 10.3 (11.8). Sleepy this AM and not responding to commands. A&OX1. NVI distally when foot stimulated by touch. PT/OT. Dispo per GTS. Edited by: Buffy Hidalgo MD at 07/05/2021 0608 Objective Vitals: 24hr Min/Max: Temp Min: 36.3 ??C (97.3 ??F) Max: 37 ??C (98.6 ??F) Pulse Min: 75 Max: 162 BP Min: 101/77 Max: 143/95 Resp Min: 16 Max: 20 SpO2 Min: 92 % Max: 98 % I/O last 2 completed shifts: In: 2200 [I.V.:2200] Out: 900 [Urine:700; Blood:200] I/O this shift: In: - Out: 250 [Urine:250] Physical Exam: Gen: No acute distress, sleepy Alert and oriented: x1 Extremity Left Lower extremity Dressing/wound: dressing clean/dry/intact Immobilization: n/a Sensation: unable to appropriately assess due to current mental status but wiggles foot to touch Motor: fires tibialis anterior, gastroc-soleus complex, extensor hallucis longus, flexor hallucis longus Perfusion: toes WWP Wound Vac(s): n/a Hemovac(s): n/a Lab/Diagnostic Review: Recent Labs Lab Units 07/05/21 1127 07/05/21 0804 07/05/21 0219 07/04/21 1727 07/03/21 2235 07/03/21 2233 07/03/21 0008 SODIUM mmol/L -- -- 140 -- 140 -- 138 POTASSIUM PLASMA mmol/L -- -- 4.6 -- 4.4 -- 4.3 CHLORIDE mmol/L -- -- 108 -- 105 -- 106 CO2 mmol/L -- -- 24 -- 29 -- 26 ANIONGAP mmol/L -- -- 8 -- 6 -- 6 GLUCOSE mg/dL -- -- 97 -- 106 -- 121 POC GLUCOSE MONITOR mg/dL 144 < > -- < > -- < > -- BUN SERUM mg/dL -- -- 11 -- 13 -- 12 CREATININE mg/dL -- -- 0.83 -- 0.75* -- 0.73* CALCIUM mg/dL -- -- 8.8 -- 9.6 -- 9.1 WBC K/cumm -- -- 6.7 -- 6.5 -- 6.3 HEMOGLOBIN g/dL -- -- 10.3* -- 11.8* -- 11.9* HEMATOCRIT % -- -- 29.8* -- 34.0* -- 35.4* PLATELETS K/cumm -- -- 140* -- 185 -- 184 NEUTROS PCT % -- -- -- -- -- -- 67.6 LYMPHS PCT % -- -- -- -- -- -- 21.9 MONOS PCT % -- -- -- -- -- -- 6.4 EOS PCT % -- -- -- -- -- -- 3.0 INR -- -- -- -- 1.2 -- -- < > = values in this interval not displayed. Micro: Lab Results Component Value Date MICROBIOLOGY (.) 06/17/2021 Final Report: Abundant Bacteroides fragilis A molecular marker associated with carbapenem resistance has been detected in this isolate of Bacteroides fragilis. Please see phenotypic antimicrobial susceptibility testing result. Susceptibilities performed by [facility], * * * * * * * * * * * * * * * * * * * * For Bacteroides fragilis susceptibility results, see attached scanned report. * * * * * * * * * * * * * * * * * * * * Few Mixed microorganisms. MICROBIOLOGY 06/16/2021 Final Report: Insignificant growth based on current clinical standards. MICROBIOLOGY Final Report: No growth 06/14/2021 MICROBIOLOGY Final Report: No growth 06/14/2021 MICROBIOLOGY Final Report: No growth 07/13/2020 MICROBIOLOGY Final Report: No growth of fungus 07/13/2020 MICROBIOLOGY (.) 12/19/2019 Final Report: Abundant Escherichia coli * * * * * * * * * * * * * * * * * * * * The susceptibility pattern of this Escherichia coli indicates the possible production of an extended spectrum beta lactamase (ESBL). Patients infected with ESBL-producing organisms require contact isolation precautions. For therapeutic options for this organism, please contact infectious diseases. [x] [facility] needs A [x] IPAP called, TTE done on 06/12 [x] Primary team: Cleared for surgery [x] DVT ppx: Heparin (held), last eliquis 06/08 [X] 07/05/21 dressing check [ ] 07/06/21 CC [ ] 07/07/21 dressing change [ ] 07/25/21 alice out if still in house Assessment/Plan: 71 y.o. male p/w the above injuries. Patient is now status post CMN L IT fx 07/04/21 WB Status: Weight bearing as tolerated left lower extremity Immobilization: n/a Activity: Ambulate with assist Therapy: PT/OT for OOB/mobilization as tolerated post-op. Precautions: None DVT ppx: Ok to restart on heparin Drain: n/a Antibiotics: Periop: Ancef 1-2gm IV Q8hrs for 24 hours postoperative Cultures: n/a Wound Care: Surgical dressings will be changed on POD3. Okay for nursing to reinforce dressings PRNif they become soiled or have shadowing before that time Sutures/[place]: Will be removed 3 weeks after surgical date. Please include on discharge orders ifpatient is going to a facility. If the patient is still in the hospital at that time they will be removed by the orthopedic team. Malvin: Has condom cath, Per primary Diet: Return to pre-op diet per primary Additional Needs: n/a Ortho Trauma will continue to follow this patient's hospital course. Dispo: Pending progress, postoperative recovery, and progress with therapy Follow-Up: Patient has follow up scheduled on 07/[address] Delvalle located at [facility] Edited by: Buffy Hidalgo MD at 07/05/2021 6930 Please call with questions during daytime. See below for overnight issues. ??? If you know the resident's name on the appropriate orthopaedic surgery team, please use [email or web address] to page resident directly. ??? If questions arise and the appropriate resident can't be reached or you are calling overnight, please contact [phone] ([facility]- 7:30 PM - 6:30 AM - Floor Resident) or [phone] (24 hours/day - Consult Resident) Cosigned by Yoanna Delvalle MD at 07/05/2021 2:40 PM CDT * Kirill Dean, DPT - 07/05/2021 11:10 AM CDT Physical Therapy Progress Note NOTE: This is a summary note of the troy components of the treatment session. For full details, review chart for all flowsheets documented on by this physical therapy clinician on this date. Vital signs documented in vital signs flowsheet. Care plan progress documented in Care Plan Activity. For questions, please review the treatment team and contact the PT or WELL CLEANER currently assigned to this patient. If a physical therapy clinician is not assigned to this patient, please call [phone]. 07/05/21 1110 PT Last Visit Session Type Treatment PT Received On 07/05/21 Safe Environment Call Light within Reach;Patient found sitting in Chair;Chair Alarm placed and activated Subjective Agreeable to Therapy Family/Caregiver Present No Precautions Precautions Fall risk Weight Bearing Restrictions Yes LLE Weight Bearing WBAT Activity Tolerance Activity Tolerance Comments gianfranco: hard Pain Assessment Pain Assessment 0-10 Pain Score 4 Pain Location Leg Pain Orientation Left Pain Interventions RN Notified;Rest Cognition Arousal/Alertness Alert;Appropriate responses to stimuli;Delayed responses to stimuli Orientation Oriented to person Following Commands Follows one step commands with repetition (pt [place] which may affect command following) Safety Judgment Decreased awareness of need for safety Awareness of Errors Decreased awareness of errors Balance Balance Yes Static Sitting Balance Static Sitting-Balance Support Feet supported;Bilateral upper extremity supported;Posterior support Static Sitting-Sitting Surface Chair Static Sitting-Level of Assistance Minimum assistance Static Sitting-Comment/# of Minutes assist to maintain COM over CHERRY; BUE support on arms of chair Static Standing Balance Static Standing-Balance Support Bilateral upper extremity supported Static Standing-Standing Surface Floor Static Standing-Level of Assistance Moderate assistance Static Standing-Comment/# of Minutes use of w/w; performed two static standing bouts, 10 seconds each; assist to prevent posterior lean/LOB throughout and verbal cues for safe hand placement on w/w and to not advance w/w Equipment Use Equipment Use Comments gait belt used for mobility Bed Mobility Bed Mobility No Transfers Transfer Yes Transfer 1 Transfer From 1 Sit Transfer Type 1 To and from Transfer to 1 Stand Transfer Device 1 Wheeled walker Transfer Level of Assistance 1 Moderate Assist;Maximal verbal cues Trials/Comments 1 first standing bout: assist for force production with standing and balance to prevent posterior LOB; max cues for safe hand placement throughout transfers Transfers 2 Transfer From 2 Sit Transfer Type 2 To and from Transfer to 2 Stand Transfer Device 2 Wheeled walker Transfer Level of Assistance 2 Maximum Assist;Maximal verbal cues Trials/Comments 2 second standing bout: assist for force production and balance to prevent posterior LOB; cues for safe hand placement throughout Ambulation Functional Ambulation Category 0 Ambulation No Ambulation 1 Ambulation Comments 1 unsafe to attempt this date 2/2 poor standing balance Stairs Stairs No Basic Mobility - 6 Click How much difficulty does the patient have: Turning over in bed 3 How much difficulty does the patient currently have: Sitting down and standing up from a chair witharms? 2 How much difficulty does the patient have: Moving from lying on back to sitting on the side of the bed? 3 How much difficulty does the patient have: Moving to and from a bed to a chair including wheelchair? 2 How much help does the patient currently need: Walk in hospital room? 2 How much help from another person does the patient currently need: Climbing 3-5 steps with a railing? 1 Total 6 Click Score (range 6-24) 13 Assessment Prognosis Good Problem List Gait deviations;Decreased strength;Decreased range of motion;Decreased endurance;Impaired balance;Decreased mobility;Decreased coordination;Decreased cognition;Decreased safety awareness;Impaired vision;Impaired hearing;Decreased skin integrity Plan Plan Continue with current plan;If this is the last note, consider this the discharge summary Recommendation/Plan PT Recommendation/Plan Inpatient Rehab Facility PT Frequency 3-5x/wk Treatment/Interventions Balance Training;Bed mobility;Endurance training;Functional activity;Functional transfer training;Gait training;Neuromuscular re-education;Positioning;Range of motion;Stair tra ining;Strengthening;Therapeutic activity;Therapeutic exercise;Transfer training Progress Slow progress, decreased activity tolerance PT - Next Appointment 07/07/21 Multi-Disciplinary Problems (from Physical Therapy) Active Problems Problem: Mobility Start Date: 06/13/21 Goal Start Date Expected End Date End Date STG - Patient will ambulate 06/13/21 07/17/21 -- Goal Details: 100 ft wthi LRAD, [place] Problem: Transfers Start Date: 06/13/21 Goal Start Date Expected End Date End Date STG - Patient will transfer sit to and from stand 06/13/21 07/17/21 -- Goal Details: Maritza with LRAD Problem: Mobility Start Date: 06/13/21 Goal Start Date Expected End Date End Date LTG - Patient will demonstrate functional mobility with the following level of assist: 06/13/21 09/05/21 -- Goal Details: Cherelle with LRAD Problem: Transfers Start Date: 07/03/21 Goal Start Date Expected End Date End Date STG - Transfer from bed to chair supervision 07/03/21 07/17/21 -- Goal Start Date Expected End Date End Date STG - Patient to transfer to and from sit to supine supervision 07/03/21 07/17/21 -- * Vy Munoz NP - 07/05/2021 5:38 AM CDT [facility] Trauma Surgery Daily Progress Note Admit: 06/11/2021 6:55 PM Date: July 05, 2021 Length of Stay: 24 Attending: Darrel Wolf,* POD:* No surgery found * History: Jania Redman is a 71 y.o. 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 There was loss of consciousness. Of note, he had an unwitnessed fall the week prior. He was first taken to [facility] via EMS on 06/08 after sustaining fall with LOC at home. At [place] the initial head??CT??was??negative and he was admittedovernight 06/08-06/09 for further evaluation and treatment of possible syncopal episodes. There was reported involuntary movements and nystagmus for which he was loaded with Keppra and planned for EEG, the course of this is unclear. He had reportedly been started on CIWA protocol??with librium.??An MRIlater revealed SAH, IVH, small IPH for which he was ultimately transferred to [facility] as a neurosurgeryprimary patient the evening of 06/11. Overnight 06/11-06/12 the patient was not following commands and was somnolent, worsening following??Ativan administration for high CIWA score. [facility]the morning of 06/12??for closer observation. NSGY consulted Medicine servicefor assistance with syncope work-up and management of multiple comorbidities. The patient had ongoing somnolence and lethargy throughout the??morning,??and on??Medicine consult's evaluation, there was concern for??being at risk for airway compromise with his impaired level of consciousness. A nasaltrumpet was placed, and the patient was then transferred to 94 ICU for closer monitoring. Interval History: 07/05: POD1. Overnight issues Afib with RVR into 160s. 5mg IVP metop x 1, 1L LR bolus. Increased metop to home dose 100mg bid. Patient needs MBS today with speech. Patient needs to work with therapy for dispo planning as well. 07/04: Labs reviewed, no acute events overnight. NPO for OR today with Ortho for CMN. mBS rescheduled for tomorrow. 07/03: No acute events overnight, Cr 0.73 (0.99). Continues on room air, BM x1. More interactive today. Re-engage Neurology for consult for continued AMS. 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 Notified Ortho regarding results of hip MRI. 07/02: No acute events overnight. Continue to encourage assist with all meals. Obtaining MRI today of right hip. Encourage continued work with therapy services. 07/01: SBFT remains in place, tube feeds at goal. CAOx2 this AM. Neurology consulted for hx seizure surrounding his initial fall. Budesonide started. Encourage continued work with therapy services. 06/30: Na 135 (137). Rate controlled A-fib on tele. BG overnight 70 on BMP, 32 on POCT, patient treated w/ applesauce with sugar packets -> BG 90. IVF increased, POCT accuchecks added. Assist w/ feeding, request for SBFT placement, mBS pending, MRI hip pending. Poor PO intake, continue to encourage additional PO. 06/29: WBC 6.3 (10.2), Hgb 12.2 (11.7), Cr 0.98 (0.95), UOP 550 ml. 2 L IVF completed. Repeat orthostatic vitals pending, carotid duplex performed, MRI L hip pending, repeat modified barium swallow pending. PM&R consult placed. Wean O2. D/c Bactrim, Flagyl to be completed today. Will need head CT just prior to discharge per NSGY. Pt pulled out NG tube, started on IVF. 06/28: Transferred from the ICU to the floor in a stable condition. Vitals stable on admission. NG tube, not on any supplemental oxygen. Hard of hearing, difficulty answering questions. Per ICU signout, A&O x 1 at baseline. No active issues at the moment. Pain:controlled Nausea: No Flatus: No Bowel Movement: Yes Medications: Current Facility-Administered Medications: ??? acetaminophen (TYLENOL) tablet 650 mg, 650 mg, feeding tube, Q4H PRN, Cassie Trent NP, 650 mg at 06/18/21 0035 ??? albuterol 2.5 mg/0.5 mL nebulizer solution 1.25 mg, 1.25 mg, nebulization, Q6H PRN (RT), Jair Jay MD ??? docusate (COLACE) 10 mg/mL oral liquid 100 mg, 100 mg, feeding tube, Daily, Sada العلي, GARIMA, 100 mg at 07/03/21 105 ??? fluticasone furoate-vilanteroL (BREO ELLIPTA) 100-25 mcg/dose inhaler 1 puff, 1 puff, inhalation, Daily (RT), Jahaira Brown NP, 1 puff at 07/03/21 0910 ??? heparin 5,000 unit/mL injection 5,000 Units, 5,000 Units, subcutaneous, Q8H MONET, Elizabeth Persaud NP, 5,000 Units at 07/04/212037 ??? Lactated Ringer's (LR) bolus 1,000 mL, 1,000 mL, intravenous, Once, Vy Munoz NP, Last Rate: 250 mL/hr at 07/05/21247, 1,000 mL at 07/05/21247 ??? magnesium oxide (MAG-OX) tablet 400 mg, 400 mg, oral, Once, Elizabeth Persaud NP ??? metoprolol tartrate (LOPRESSOR) immediate release tablet 50 mg, 50 mg, feeding tube, BID, Jair Jay MD, 50 mg at 07/04/211957 ??? miconazole (SECURA THICK) 2 % cream, , topical, BID, Andreia Ellis MD, Given at 07/04/211999 ??? tutefetj-wmm-piibbtf gluconate (CENTRUM) 0.6 mg iron/mL oral liquid 15 mL, 15 mL, feeding tube,Daily, Cassie Trent NP, 15 mL at 07/03/21 105 ??? pantoprazole (PROTONIX) 4 mg/mL injection 40 mg, 40 mg, intravenous, Daily, Mily Cuevas NP, 40 mg at 07/04/21 0805 ??? pravastatin (PRAVACHOL) tablet 40 mg, 40 mg, feeding tube, Daily, Cassie Trent, GARIMA, 40mg at 07/03/21 1052 ??? ramelteon (ROZEREM) tablet 8 mg, 8 mg, feeding tube, Nightly, Tamiko Ray, GARIMA, 8 mg at 07/04/21 1623 ??? senna 1.76 mg/mL syrup 8.8 mg, 8.8 mg, feeding tube, BID, Sada العلي, GARIMA, 8.8 mg at07/04/211957 ??? sodium chloride 0.9% flush 0.5-20 mL, 0.5-20 mL, intra-catheter, Q8H MONET, Belinda Shaffer MD PhD, 10 mL at 07/04/212033 ??? sodium chloride 0.9% flush 0.5-20 mL, 0.5-20 mL, intra-catheter, PRN, Belinda Shaffer MD PhD, 10 mL at 06/25/2145 ??? terazosin (HYTRIN) capsule 10 mg, 10 mg, feeding tube, Nightly, Ciarra Jama NP, 10 mg at 07/04/211957 ??? thiamine (VITAMIN B1) tablet 100 mg, 100 mg, feeding tube, Daily, Jair Jay MD, 100 mg at 07/03/21 105 ??? traZODone (DESYREL) tablet 100 mg, 100 mg, feeding tube, Nightly, Ciarra Jama NP,100 mg at 07/04/211957 Diet: Dietary Orders (From admission, onward) Start Ordered 07/04/21 1239 Adult Diet Restricted; Dysphagia 1 (pureed); No Liquid Diet effective now Question Answer Comment ([facility]) Diet type Restricted Modified Consistency: Dysphagia 1 (pureed) Fluid Consistency: No Liquid 07/04/21 1238 06/28/21 1217 Oral Nutrition Supplements Select Supplement: Ensure Pudding - Abby All Meals Question: Select Supplement: Answer: Ensure Pudding - Abby 06/28/21 1216 Activity: As tolerated Is&Os: I/O last 2 completed shifts: In: 2621 [I.V.:2621] Out: 450 [Urine:250; Blood:200] No intake/output data recorded. Physical Exam: 24hr Min/Max: Temp Min: 36 ??C (96.8 ??F) Max: 37 ??C (98.6 ??F) Pulse Min: 73 Max: 162 BP Min: 101/77 Max: 149/91 Resp Min: 11 Max: 20 SpO2 Min: 90 % Max: 100 % Vitals: 07/05/21 0017 BP: 106/70 Pulse: 101 Resp: 19 Temp: 36.9 ??C (98.4 ??F) SpO2: 93% Constitutional: well developed, well nourished, cooperative and no apparent distress Head: normocephalic, without obvious abnormality, atraumatic Neurologic: oriented to person cranial Nerves II-XII intact sensation intact all extremities demonstrated purposeful movement in all 4 extremities Eyes: PERRL, pupils: Bilateral: reactive and size 2 mm, conjunctiva normal, left ptosis HENT: lips, mucosa, and tongue normal Neck: supple, symmetrical, trachea midline Chest: normal appearance, no masses or tenderness Respiratory: normal chest rise and fall, diminished breath sounds bilateral and on room air Cardiovascular: regular rate and irregularly irregular rhythm Gastrointestinal: bowel sounds present, non-distended and soft non-tender Musculoskeletal: extremities normal, warm and well-perfused and no edema Pulses: radial: bilateral normal and PT: bilateral normal Skin: skin color, texture, turgor normal. No rashes or lesions or incision L lateral hip incision intact. no active drainage or bleeding noted Drains: condom cath, no efflux currently in drainage bag Labs/Imaging: Recent Results (from the past 72 hour(s)) POCT glucose Collection Time: 07/02/21 10:09 PM Result Value Ref Range Glucose, POC 112 70 - 199 mg/dL Basic metabolic panel Collection Time: 07/03/21 12:08 AM Result Value Ref Range Sodium 138 135 - 145 mmol/L Potassium, pl 4.3 3.3 - 4.9 mmol/L Chloride 106 97 - 110 mmol/L CO2 26 22 - 32 mmol/L Anion gap 6 2 - 15 mmol/L BUN 12 8 - 25 mg/dL Creatinine 0.73 (L) 0.80 - 1.30 mg/dL Glucose 121 70 - 199 mg/dL Calcium 9.1 8.5 - 10.3 mg/dL CBC with auto differential Collection Time: 07/03/21 12:08 AM Result Value Ref Range WBC 6.3 3.8 - 9.9 K/cumm Hgb 11.9 (L) 13.0 - 17.5 g/dL Hct 35.4 (L) 38.9 - 50.3 % Plt 184 150 - 400 K/cumm MPV 10.2 9.1 - 12.3 fL RBC 3.48 (L) 4.30 - 5.80 M/cumm MCV 101.7 (H) 81.3 - 96.4 fL MCH 34.2 (H) 27.1 - 33.3 pg MCHC 33.6 32.3 - 35.7 g/dL RDW CV 12.3 11.1 - 14.9 % RDW SD 46.3 35.7 - 48.1 fL NRBC abs 0.00 0.00 - 0.01 K/cumm Differential, auto Collection Time: 07/03/21 12:08 AM Result Value Ref Range Neutrophil abs 4.2 1.7 - 6.5 K/cumm Imm gran abs 0.0 0.0 - 0.1 K/cumm Lymphocyte abs 1.4 0.8 - 3.3 K/cumm Monocyte abs 0.4 0.2 - 0.8 K/cumm Eosinophil abs 0.2 0.0 - 0.5 K/cumm Basophil abs 0.0 0.0 - 0.1 K/cumm Neutrophil pct 67.6 % Imm gran pct 0.6 % Lymphocyte pct 21.9 % Monocyte pct 6.4 % Eosinophil pct 3.0 % Basophil pct 0.5 % eGFR Collection Time: 07/03/21 12:08 AM Result Value Ref Range eGFR >90 90 - 130 mL/min/1.73 m2 Magnesium Collection Time: 07/03/21 12:08 AM Result Value Ref Range Magnesium 1.8 1.4 - 2.5 mg/dL POCT glucose Collection Time: 07/03/21 10:33 PM Result Value Ref Range Glucose, POC 97 70 - 199 mg/dL Basic metabolic panel Collection Time: 07/03/21 10:35 PM Result Value Ref Range Sodium 140 135 - 145 mmol/L Potassium, pl 4.4 3.3 - 4.9 mmol/L Chloride 105 97 - 110 mmol/L CO2 29 22 - 32 mmol/L Anion gap 6 2 - 15 mmol/L BUN 13 8 - 25 mg/dL Creatinine 0.75 (L) 0.80 - 1.30 mg/dL Glucose 106 70 - 199 mg/dL Calcium 9.6 8.5 - 10.3 mg/dL CBC without differential Collection Time: 07/03/21 10:35 PM Result Value Ref Range WBC 6.5 3.8 - 9.9 K/cumm Hgb 11.8 (L) 13.0 - 17.5 g/dL Hct 34.0 (L) 38.9 - 50.3 % Plt 185 150 - 400 K/cumm MPV 10.2 9.1 - 12.3 fL RBC 3.45 (L) 4.30 - 5.80 M/cumm MCV 98.6 (H) 81.3 - 96.4 fL MCH 34.2 (H) 27.1 - 33.3 pg MCHC 34.7 32.3 - 35.7 g/dL RDW CV 12.2 11.1 - 14.9 % RDW SD 44.1 35.7 - 48.1 fL NRBC abs 0.00 0.00 - 0.01 K/cumm Magnesium Collection Time: 07/03/21 10:35 PM Result Value Ref Range Magnesium 1.7 1.4 - 2.5 mg/dL Type and screen Collection Time: 07/03/21 10:35 PM Result Value Ref Range Nancy, indirect Negative ABO Rh O Positive Protime-INR Collection Time: 07/03/21 10:35 PM Result Value Ref Range PT 12.8 9.5 - 13.6 sec INR 1.2 0.9 - 1.2 eGFR Collection Time: 07/03/21 10:35 PM Result Value Ref Range eGFR >90 90 - 130 mL/min/1.73 m2 POCT glucose Collection Time: 07/04/21 5:27 PM Result Value Ref Range Glucose, POC 99 70 - 199 mg/dL POCT glucose Collection Time: 07/04/21 11:38 PM Result Value Ref Range Glucose, POC 107 70 - 199 mg/dL Basic metabolic panel Collection Time: 07/05/21 2:19 AM Result Value Ref Range Sodium 140 135 - 145 mmol/L Potassium, pl 4.6 3.3 - 4.9 mmol/L Chloride 108 97 - 110 mmol/L CO2 24 22 - 32 mmol/L Anion gap 8 2 - 15 mmol/L BUN 11 8 - 25 mg/dL Creatinine 0.83 0.80 - 1.30 mg/dL Glucose 97 70 - 199 mg/dL Calcium 8.8 8.5 - 10.3 mg/dL CBC without differential Collection Time: 07/05/21 2:19 AM Result Value Ref Range WBC 6.7 3.8 - 9.9 K/cumm Hgb 10.3 (L) 13.0 - 17.5 g/dL Hct 29.8 (L) 38.9 - 50.3 % Plt 140 (L) 150 - 400 K/cumm MPV 10.4 9.1 - 12.3 fL RBC 2.98 (L) 4.30 - 5.80 M/cumm MCV 100.0 (H) 81.3 - 96.4 fL MCH 34.6 (H) 27.1 - 33.3 pg MCHC 34.6 32.3 - 35.7 g/dL RDW CV 12.6 11.1 - 14.9 % RDW SD 45.2 35.7 - 48.1 fL NRBC abs 0.00 0.00 - 0.01 K/cumm Magnesium Collection Time: 07/05/21 2:19 AM Result Value Ref Range Magnesium 1.5 1.4 - 2.5 mg/dL eGFR Collection Time: 07/05/21 2:19 AM Result Value Ref Range eGFR >90 90 - 130 mL/min/1.73 m2 No results found. Assessment and Plan: Active Problems: Hypercholesterolemia Hypertension Atrial fibrillation (CMS/HCC) ([facility]) Chronic systolic heart failure (CMS/HCC) (HCC) TBI (traumatic brain injury) (CMS/HCC) (HCC) SAH (subarachnoid hemorrhage) ([facility]/HCC) ([facility]) Encephalopathy Acute delirium Scrotal abscess Closed nondisplaced intertrochanteric fracture of left femur ([facility]) ([facility]) Dysphagia Orthostatic hypotension Acute respiratory failure (HCC) #Traumatic brain injury with SAH and intraventricular hemorrhage - Admitted to NSGY - Keppra 500mg BID x7 days completed - Neuro checks q4hr - PM&R consult completed, rec SNF/LTC, continued PT/OT/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 #Encephalopathy - Etiology seems to be multifactorial with alcohol withdrawal (received librium at OSH), TBI, hospital admission/delirium, possible Wernicke's - s/p 9 days folic acid, 3 days 500 mg IV q8h, thiamine followed by 250 mg x5 days - Neurology consult - signed off - Delirium precautions - If worsening mental status, consider repeat infectious work-up and/or routine EEG - MVI daily and thiamine 100 mg daily indefinitely ?? #COPD #Acute on chronic respiratory failure - resolving - No home medications - Extubated 06/18 - Patient arrived to floor on face tent - 06/30: on room air - Wean O2 for SpO2 goal 88-92% - Breo-Ellipta started 07/01 for maintenance - PRN albuterol - Incentive spirometry, acapella, CPT ?? #Chronic systolic heart failure - per Cardiology note from 01/25/21: asymptomatic mild LV dysfunction, suspect tachycardia mediated - Previously EF 45-50% (2020), now EF 70-75% as of 06/13 - Continue metoprolol 50 mg BID - Holding home lisinopril, restart after OR if appropriate ?? #Atrial fibrillation with RVR - s/p amio gtt 06/13-06/14; will need outpatient f/u with Panelboard Operator - increased metoprolol 100 mg BID for rate control - Goal HR <120 - Telemetry ?? #Syncope/Orthostatic hypotension - + orthostatic symptoms as outpatient per and + orthostatics at OSH - TTE unrevealing - Orthostatics positive 06/22 - Received 2 L fluid on 06/28-06/29 - Carotid duplex with less than 50% stenosis bilaterally ?? #Dysphagia due to TBI - On dysphagia 1 diet with NO liquids - Continue calorie count x3 days to ensure adequate PO (initiated on 06/27, continue through 06/30), Nutrition following - NG tube placed for meds, removed by patient on 06/29 - Cognition poor requiring frequent redirection, repeat mBS pending - 2 L IVF completed 06/29 - SBFT placed 06/30, autoremoved by patient 07/01 - Assist 100% with all meals - Continue DDI diet, NO LIQUIDS - final operations technician following - Calorie count - Repeat mBS pending 07/05 ?? #Left IT fracture - Ortho consult - Mobilization trial failed - MRI of left hip (07/03) with nondisplaced proximal IT fx - Re-engaged Ortho on 07/03 - 07/04: OR with Ortho for L CMN - LLE WBAT - Valentine-op Ancef x 24 hrs - POD3 dressing change by Ortho - Alice to be removed 3 weeks post-op - Pain control, PT/OT - Follow-up scheduled on 07/[address] Delvalle located at [facility] ?? #Bacteroides fragilis scrotal abscess and cellulitis - US scrotum (06/17) with left hydrocele and cellulitis - CT pelvis w contrast (06/17) positive for small left scrotal hydrocele, negative for soft tissue gas, and positive for non-displaced trochanteric fracture - Urology consulted:10 day course abx and should heal on its own, call if infection appears worse or changes - Clindamycin discontinued 06/20 - Continue flagyl and bactrim through 06/29 for a total of 12 days since susceptibilities are not back yet - f/u susceptibilities: susceptible to flagyl - Bactrim d/c'd 06/29, Flagyl completed 06/29 ?? #HTN - Home lisinopril 40 mg daily on hold, restart as able - Home lasix 40 mg daily on hold, restart as able - Continue metoprolol - SBP goal <160 #HLD - Continue pravastatin 40 mg daily ?? #DVT ppx: heparin subQ- hold for OR #Dispo: SNF vs Rehab Vy Munoz NP Cosigned by Deacon Ronald Gardner MD at 07/05/2021 4:12 PM CDT * Buffy Hidalgo MD - 07/04/2021 3:27 PM CDT Orthopedic Postoperative Check Note Admit Date: 06/11/2021 Hospital Day: 23 MBB Dx: L IT fx Injury Mechanism: SLMF OI: TBI, SAH; chronic draining scrotal abscess PMHx: HTN, atrial fibrillation (on eliquis, last 06/08), CHF, COPD Plan: CMN L IT fx. Procedure(s): 07/04/21- CMN L IT fx , HPI: 71 y.o.male s/p SLMF p/w L IT fx. Fell around 06/06/2021, sustained TBI and SAH, has been encephalopathic w/ AMS since in NICU. Has not been ambulatory 2/2 AMS requiring lift for transfers. Injurynoted on CT abdomen performed for scrotal abscess. Exam: Intermittently participatory on exam, responding yes to all questions. Skin intact. No perceivable pain with logroll/hip ROM, actively moving LLE. Distally motor intact, WWP. OI: SAH/TBI. Consulting Services: Neuro ICU primary, NSGY. PMHx: HTN, atrial fibrillation (on eliquis, last 06/08), CHF, COPD. Soc Hx: + EtOH w/ withdrawals, unkn drugs , retired, lives w/ spouse. Interval History: s/p CMN L IT fx 07/04/21. Alicemagdalene. WBAT LLE. Ancef x24h. DVT ppx per primary. PT/OT. Dispo per GTS. [x] POC. Appears comfortable and denies pain. Not responding to other questioning re shortness of breath etc. No reported nausea, vomiting. Edited by: Buffy Hidalgo MD at 07/04/2021 1136 Objective Vitals: 24hr Min/Max: Temp Min: 36 ??C (96.8 ??F) Max: 36.9 ??C (98.4 ??F) Pulse Min: 68 Max: 105 BP Min: 105/71 Max: 163/89 Resp Min: 11 Max: 20 SpO2 Min: 90 % Max: 100 % I/O last 2 completed shifts: In: 422 [I.V.:422] Out: 0 I/O this shift: In: 0 [I.V.:2200] Out: 450 [Urine:250; Blood:200] Physical Exam: Gen: No acute distress Alert and oriented: x1 Extremity Left Lower extremity Dressing/wound: dressing clean/dry/intact Immobilization: n/a Sensation: unable to appropriately assess due to current mental status Motor: fires tibialis anterior, gastroc-soleus complex, extensor hallucis longus, flexor hallucis longus, wiggles toes Perfusion: toes WWP Lab/Diagnostic Review: Recent Labs Lab Units 07/03/21223407/03/21223207/03/21 0008 SODIUM mmol/L 140 -- 138 POTASSIUM PLASMA mmol/L 4.4 -- 4.3 CHLORIDE mmol/L 105 -- 106 CO2 mmol/L 29 -- 26 ANIONGAP mmol/L 6 -- 6 GLUCOSE mg/dL 106 -- 121 POC GLUCOSE MONITOR -- < > -- BUN SERUM mg/dL 13 -- 12 CREATININE mg/dL 0.75* -- 0.73* CALCIUM mg/dL 9.6 -- 9.1 WBC K/cumm 6.5 -- 6.3 HEMOGLOBIN g/dL 11.8* -- 11.9* HEMATOCRIT % 34.0* -- 35.4* PLATELETS K/cumm 185 -- 184 NEUTROS PCT % -- -- 67.6 LYMPHS PCT % -- -- 21.9 MONOS PCT % -- -- 6.4 EOS PCT % -- -- 3.0 INR 1.2 -- -- < > = values in this interval not displayed. Micro: Lab Results Component Value Date MICROBIOLOGY (.) 06/17/2021 Final Report: Abundant Bacteroides fragilis A molecular marker associated with carbapenem resistance has been detected in this isolate of Bacteroides fragilis. Please see phenotypic antimicrobial susceptibility testing result. Susceptibilities performed by [facility], * * * * * * * * * * * * * * * * * * * * For Bacteroides fragilis susceptibility results, see attached scanned report. * * * * * * * * * * * * * * * * * * * * Few Mixed microorganisms. MICROBIOLOGY 06/16/2021 Final Report: Insignificant growth based on current clinical standards. MICROBIOLOGY Final Report: No growth 06/14/2021 MICROBIOLOGY Final Report: No growth 06/14/2021 MICROBIOLOGY Final Report: No growth 07/13/2020 MICROBIOLOGY Final Report: No growth of fungus 07/13/2020 MICROBIOLOGY (.) 12/19/2019 Final Report: Abundant Escherichia coli * * * * * * * * * * * * * * * * * * * * The susceptibility pattern of this Escherichia coli indicates the possible production of an extended spectrum beta lactamase (ESBL). Patients infected with ESBL-producing organisms require contact isolation precautions. For therapeutic options for this organism, please contact infectious diseases. [x] MC needs A [x] IPAP called, TTE done on 06/12 [x] Primary team: Cleared for surgery [x] DVT ppx: Heparin (held), last eliquis 06/08 [ ] dressing check [ ] 07/06/21 CC [ ] 07/07/21 dressing change [ ] 07/25/21 alice out if still in house Assessment/Plan: 71 y.o. male p/w the above injuries. Patient is now status post CMN L IT fx 07/04/21 WB Status: Weight bearing as tolerated left lower extremity Immobilization: n/a Activity: Ambulate with assist Therapy: PT/OT for OOB/mobilization as tolerated post-op. Precautions: None DVT ppx: Ok to restart on heparin Drain: n/a Antibiotics: Periop: Ancef 1-2gm IV Q8hrs for 24 hours postoperative Cultures: n/a Wound Care: Surgical dressings will be changed on POD3. Okay for nursing to reinforce dressings PRNif they become soiled or have shadowing before that time Sutures/[place]: Will be removed 3 weeks after surgical date. Please include on discharge orders ifpatient is going to a facility. If the patient is still in the hospital at that time they will be removed by the orthopedic team. Coombs: Has condom cath, Per primary Diet: Return to pre-op diet per primary Additional Needs: n/a Ortho Trauma will continue to follow this patient's hospital course. Dispo: Pending progress, postoperative recovery, and progress with therapy Follow-Up: Patient has follow up scheduled on 07/[address] Delvalle located at [facility] Edited by: Buffy Hidalgo MD at 07/04/2021 [id number] Please call with questions during daytime. See below for overnight issues. ??? If you know the resident's name on the appropriate orthopaedic surgery team, please use [email or web address] to page resident directly. ??? If questions arise and the appropriate resident can't be reached or you are calling overnight, please contact [phone] ( 7:30 PM - 6:30 AM - Floor Resident) or [phone] (24 hours/day - Consult Resident) Cosigned by Yoanna Delvalle MD at 07/04/2021 3:59 PM CDT * Elizabeth Persaud NP - 07/04/2021 8:50 AM CDT [facility] Geriatric Trauma Surgery Daily Progress Note Admit: 06/11/2021 6:55 PM Date: July 04, 2021 Length of Stay: 23 Attending: Darrel Wolf,* POD:* No surgery found * History: Jania Redman is a 71 y.o. 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 There was loss of consciousness. Of note, he had an unwitnessed fall the week prior. He was first taken to [facility] via EMS on 06/08 after sustaining fall with LOC at home. At [place] the initial head??CT??was??negative and he was admittedovernight 06/08-06/09 for further evaluation and treatment of possible syncopal episodes. There was reported involuntary movements and nystagmus for which he was loaded with Keppra and planned for EEG, the course of this is unclear. He had reportedly been started on CIWA protocol??with librium.??An MRIlater revealed SAH, IVH, small IPH for which he was ultimately transferred to [facility] as a neurosurgeryprimary patient the evening of 06/11. Overnight 06/11-06/12 the patient was not following commands and was somnolent, worsening following??Ativan administration for high CIWA score. [facility]the morning of 06/12??for closer observation. NSGY consulted Medicine servicefor assistance with syncope work-up and management of multiple comorbidities. The patient had ongoing somnolence and lethargy throughout the??morning,??and on??Medicine consult's evaluation, there was concern for??being at risk for airway compromise with his impaired level of consciousness. A nasaltrumpet was placed, and the patient was then transferred to 9400 ICU for closer monitoring. Interval History: 07/04: Labs reviewed, no acute events overnight. NPO for OR today with Ortho for CMN. mBS rescheduled for tomorrow. 07/03: No acute events overnight, Cr 0.73 (0.99). Continues on room air, BM x1. More interactive today. Re-engage Neurology for consult for continued AMS. 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 Notified Ortho regarding results of hip MRI. 07/02: No acute events overnight. Continue to encourage assist with all meals. Obtaining MRI today of right hip. Encourage continued work with therapy services. 07/01: SBFT remains in place, tube feeds at goal. CAOx2 this AM. Neurology consulted for hx seizure surrounding his initial fall. Budesonide started. Encourage continued work with therapy services. 06/30: Na 135 (137). Rate controlled A-fib on tele. BG overnight 70 on BMP, 32 on POCT, patient treated w/ applesauce with sugar packets -> BG 90. IVF increased, POCT accuchecks added. Assist w/ feeding, request for SBFT placement, mBS pending, MRI hip pending. Poor PO intake, continue to encourage additional PO. 06/29: WBC 6.3 (10.2), Hgb 12.2 (11.7), Cr 0.98 (0.95), UOP 550 ml. 2 L IVF completed. Repeat orthostatic vitals pending, carotid duplex performed, MRI L hip pending, repeat modified barium swallow pending. PM&R consult placed. Wean O2. D/c Bactrim, Flagyl to be completed today. Will need head CT just prior to discharge per NSGY. Pt pulled out NG tube, started on IVF. 06/28: Transferred from the ICU to the floor in a stable condition. Vitals stable on admission. NG tube, not on any supplemental oxygen. Hard of hearing, difficulty answering questions. Per ICU signout, A&O x 1 at baseline. No active issues at the moment. Pain:controlled Nausea: No Flatus: No Bowel Movement: Yes Medications: Current Facility-Administered Medications: ??? [MAR Hold] acetaminophen (TYLENOL) tablet 650 mg, 650 mg, feeding tube, Q4H PRN, Cassie Trent NP, 650 mg at 06/18/21 0035 ??? [MAR Hold] albuterol 2.5 mg/0.5 mL nebulizer solution 1.25 mg, 1.25 mg, nebulization, Q6H PRN (RT), Jair Jay MD ??? [MAR Hold] docusate (COLACE) 10 mg/mL oral liquid 100 mg, 100 mg, feeding tube, Daily, Sada العلي NP, 100 mg at 07/03/21 1052 ??? [MAR Hold] fluticasone furoate-vilanteroL (BREO ELLIPTA) 100-25 mcg/dose inhaler 1 puff, 1 puff, inhalation, Daily (RT), Jahaira Brown NP, 1 puff at 07/03/21 0910 ??? Lactated Ringer's (LR) infusion, 30 mL/hr, intravenous, Continuous, Bryson Villar, ??? [MAR Hold] magnesium oxide (MAG-OX) tablet 400 mg, 400 mg, oral, Once, Elizabeth Persaud NP ??? [MAR Hold] metoprolol tartrate (LOPRESSOR) immediate release tablet 50 mg, 50 mg, feeding tube,BID, Jair Jay MD, 50 mg at 07/03/21 2238 ??? [MAR Hold] miconazole (SECURA THICK) 2 % cream, , topical, BID, Andreia Ellis MD, Given at 07/04/21 0805 ??? [MAR Hold] tkwiqojq-ztw-qlcxmop gluconate (CENTRUM) 0.6 mg iron/mL oral liquid 15 mL, 15 mL, feeding tube, Daily, Cassie Trent NP, 15 mL at 07/03/21 1052 ??? [MAR Hold] pantoprazole (PROTONIX) 4 mg/mL injection 40 mg, 40 mg, intravenous, Daily, Mily Cuevas NP, 40 mg at 07/04/21 0805 ??? [MAR Hold] pravastatin (PRAVACHOL) tablet 40 mg, 40 mg, feeding tube, Daily, Cassie Trent NP, 40 mg at 07/03/21 1052 ??? [MAR Hold] ramelteon (ROZEREM) tablet 8 mg, 8 mg, feeding tube, Nightly, Tamiko Ray NP,8 mg at 07/03/21 1802 ??? [JUN Hold] senna 1.76 mg/mL syrup 8.8 mg, 8.8 mg, feeding tube, BID, Sada العلي NP, 8.8 mg at 07/03/212236 ??? [MAR Hold] sodium chloride 0.9% flush 0.5-20 mL, 0.5-20 mL, intra-catheter, Q8H MONET, Belinda Shaffer MD PhD, 10 mL at 07/03/212238 ??? [MAR Hold] sodium chloride 0.9% flush 0.5-20 mL, 0.5-20 mL, intra-catheter, PRN, Belinda Shaffer MD PhD, 10 mL at 06/25/21 0745 ??? sodium chloride 0.9% flush 0.5-20 mL, 0.5-20 mL, intra-catheter, PRN, Bryson Villar, ??? [MAR Hold] terazosin (HYTRIN) capsule 10 mg, 10 mg, feeding tube, Nightly, Ciarra Jama, TEXTILE MACHINE MAINTENANCE MECHANIC, 10 mg at 07/03/212235 ??? [MAR Hold] thiamine (VITAMIN B1) tablet 100 mg, 100 mg, feeding tube, Daily, Jair Jay MD, 100 mg at 07/03/21 1052 ??? [MAR Hold] traZODone (DESYREL) tablet 100 mg, 100 mg, feeding tube, Nightly, Ciarra Jama NP, 100 mg at 07/03/21 2237 Diet: Dietary Orders (From admission, onward) Start Ordered 07/04/21 0001 NPO Diet Diet effective midnight 07/03/21 1503 06/28/21 1217 Oral Nutrition Supplements Select Supplement: Ensure Pudding - Abby All Meals Question: Select Supplement: Answer: Ensure Pudding - Abby 06/28/21 1216 Activity: As tolerated Is&Os: I/O last 2 completed shifts: In: 422 [I.V.:422] Out: 0 No intake/output data recorded. Physical Exam: 24hr Min/Max: Temp Min: 36 ??C (96.8 ??F) Max: 36.9 ??C (98.4 ??F) Pulse Min: 68 Max: 103 BP Min: 111/67 Max: 163/89 Resp Min: 16 Max: 18 SpO2 Min: 92 % Max: 100 % Vitals: 07/04/21 0850 BP: Pulse: Resp: Temp: 36 ??C (96.8 ??F) SpO2: Constitutional: well developed, well nourished, cooperative and no apparent distress Head: normocephalic, without obvious abnormality, atraumatic Neurologic: oriented to person cranial Nerves II-XII intact sensation intact all extremities demonstrated purposeful movement in all 4 extremities Eyes: PERRL, pupils: Bilateral: reactive and size 2 mm, conjunctiva normal, left ptosis HENT: lips, mucosa, and tongue normal Neck: supple, symmetrical, trachea midline Chest: normal appearance, no masses or tenderness Respiratory: normal chest rise and fall, diminished breath sounds bilateral and on room air Cardiovascular: regular rate and irregularly irregular rhythm Gastrointestinal: non-distended and soft non-tender Musculoskeletal: extremities normal, warm and well-perfused and no edema Pulses: radial: bilateral normal and PT: bilateral normal Skin: skin color, texture, turgor normal. No rashes or lesions Drains: condom cath, no efflux currently in drainage bag Labs/Imaging: Recent Results (from the past 72 hour(s)) POCT glucose Collection Time: 07/01/21 2:35 PM Result Value Ref Range Glucose, POC 112 70 - 199 mg/dL POCT glucose Collection Time: 07/01/21 10:35 PM Result Value Ref Range Glucose, POC 111 70 - 199 mg/dL POCT glucose Collection Time: 07/02/21 10:09 PM Result Value Ref Range Glucose, POC 112 70 - 199 mg/dL Basic metabolic panel Collection Time: 07/03/21 12:08 AM Result Value Ref Range Sodium 138 135 - 145 mmol/L Potassium, pl 4.3 3.3 - 4.9 mmol/L Chloride 106 97 - 110 mmol/L CO2 26 22 - 32 mmol/L Anion gap 6 2 - 15 mmol/L BUN 12 8 - 25 mg/dL Creatinine 0.73 (L) 0.80 - 1.30 mg/dL Glucose 121 70 - 199 mg/dL Calcium 9.1 8.5 - 10.3 mg/dL CBC with auto differential Collection Time: 07/03/21 12:08 AM Result Value Ref Range WBC 6.3 3.8 - 9.9 K/cumm Hgb 11.9 (L) 13.0 - 17.5 g/dL Hct 35.4 (L) 38.9 - 50.3 % Plt 184 150 - 400 K/cumm MPV 10.2 9.1 - 12.3 fL RBC 3.48 (L) 4.30 - 5.80 M/cumm MCV 101.7 (H) 81.3 - 96.4 fL MCH 34.2 (H) 27.1 - 33.3 pg MCHC 33.6 32.3 - 35.7 g/dL RDW CV 12.3 11.1 - 14.9 % RDW SD 46.3 35.7 - 48.1 fL NRBC abs 0.00 0.00 - 0.01 K/cumm Differential, auto Collection Time: 07/03/21 12:08 AM Result Value Ref Range Neutrophil abs 4.2 1.7 - 6.5 K/cumm Imm gran abs 0.0 0.0 - 0.1 K/cumm Lymphocyte abs 1.4 0.8 - 3.3 K/cumm Monocyte abs 0.4 0.2 - 0.8 K/cumm Eosinophil abs 0.2 0.0 - 0.5 K/cumm Basophil abs 0.0 0.0 - 0.1 K/cumm Neutrophil pct 67.6 % Imm gran pct 0.6 % Lymphocyte pct 21.9 % Monocyte pct 6.4 % Eosinophil pct 3.0 % Basophil pct 0.5 % eGFR Collection Time: 07/03/21 12:08 AM Result Value Ref Range eGFR >90 90 - 130 mL/min/1.73 m2 Magnesium Collection Time: 07/03/21 12:08 AM Result Value Ref Range Magnesium 1.8 1.4 - 2.5 mg/dL POCT glucose Collection Time: 07/03/21 10:33 PM Result Value Ref Range Glucose, POC 97 70 - 199 mg/dL Basic metabolic panel Collection Time: 07/03/21 10:35 PM Result Value Ref Range Sodium 140 135 - 145 mmol/L Potassium, pl 4.4 3.3 - 4.9 mmol/L Chloride 105 97 - 110 mmol/L CO2 29 22 - 32 mmol/L Anion gap 6 2 - 15 mmol/L BUN 13 8 - 25 mg/dL Creatinine 0.75 (L) 0.80 - 1.30 mg/dL Glucose 106 70 - 199 mg/dL Calcium 9.6 8.5 - 10.3 mg/dL CBC without differential Collection Time: 07/03/21 10:35 PM Result Value Ref Range WBC 6.5 3.8 - 9.9 K/cumm Hgb 11.8 (L) 13.0 - 17.5 g/dL Hct 34.0 (L) 38.9 - 50.3 % Plt 185 150 - 400 K/cumm MPV 10.2 9.1 - 12.3 fL RBC 3.45 (L) 4.30 - 5.80 M/cumm MCV 98.6 (H) 81.3 - 96.4 fL MCH 34.2 (H) 27.1 - 33.3 pg MCHC 34.7 32.3 - 35.7 g/dL RDW CV 12.2 11.1 - 14.9 % RDW SD 44.1 35.7 - 48.1 fL NRBC abs 0.00 0.00 - 0.01 K/cumm Magnesium Collection Time: 07/03/21 10:35 PM Result Value Ref Range Magnesium 1.7 1.4 - 2.5 mg/dL Type and screen Collection Time: 07/03/21 10:35 PM Result Value Ref Range Nancy, indirect Negative ABO Rh O Positive Protime-INR Collection Time: 07/03/21 10:35 PM Result Value Ref Range PT 12.8 9.5 - 13.6 sec INR 1.2 0.9 - 1.2 eGFR Collection Time: 07/03/21 10:35 PM Result Value Ref Range eGFR >90 90 - 130 mL/min/1.73 m2 No results found. Assessment and Plan: Active Problems: Hypercholesterolemia Hypertension Atrial fibrillation (CMS/HCC) (HCC) Chronic systolic heart failure (CMS/HCC) (HCC) TBI (traumatic brain injury) (CMS/HCC) (HCC) SAH (subarachnoid hemorrhage) (CMS/HCC) (HCC) Encephalopathy Acute delirium Scrotal abscess Closed nondisplaced intertrochanteric fracture of left femur (CMS/HCC) (HCC) Dysphagia Orthostatic hypotension Acute respiratory failure (HCC) #Traumatic brain injury with SAH and intraventricular hemorrhage - Admitted to NSGY - Keppra 500mg BID x7 days completed - Neuro checks q4hr - PM&R consult completed, rec SNF/LTC, continued PT/OT/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 #Encephalopathy - Etiology seems to be multifactorial with alcohol withdrawal (received librium at OSH), TBI, hospital admission/delirium, possible Wernicke's - s/p 9 days folic acid, 3 days 500 mg IV q8h, thiamine followed by 250 mg x5 days - Neurology consult - signed off - Delirium precautions - If worsening mental status, consider repeat infectious work-up and/or routine EEG - MVI daily and thiamine 100 mg daily indefinitely ?? #COPD #Acute on chronic respiratory failure - resolving - No home medications - Extubated 06/18 - Patient arrived to floor on face tent - 06/30: on room air - Wean O2 for SpO2 goal 88-92% - Breo-Ellipta started 07/01 for maintenance - PRN albuterol - Incentive spirometry, acapella, CPT ?? #Chronic systolic heart failure - per Cardiology note from 01/25/21: asymptomatic mild LV dysfunction, suspect tachycardia mediated - Previously EF 45-50% (2020), now EF 70-75% as of 06/13 - Continue metoprolol 50 mg BID - Holding home lisinopril, restart after OR if appropriate ?? #Atrial fibrillation with RVR - s/p amio gtt 06/13-06/14; will need outpatient f/u with Panelboard Operator - Continue metoprolol 50 mg BID for rate control - Goal HR <120 - Telemetry ?? #Syncope/Orthostatic hypotension - + orthostatic symptoms as outpatient per and + orthostatics at OSH - TTE unrevealing - Orthostatics positive 06/22 - Received 2 L fluid on 06/28-06/29 - Carotid duplex with less than 50% stenosis bilaterally ?? #Dysphagia due to TBI - On dysphagia 1 diet with NO liquids - Continue calorie count x3 days to ensure adequate PO (initiated on 06/27, continue through 06/30), Nutrition following - NG tube placed for meds, removed by patient on 06/29 - Cognition poor requiring frequent redirection, repeat mBS pending - 2 L IVF completed 06/29 - SBFT placed 06/30, autoremoved by patient 07/01 - Assist 100% with all meals - Continue DDI diet, NO LIQUIDS - final operations technician following - Calorie count - Repeat mBS pending 07/05 ?? #Left IT fracture - Ortho consult - Mobilization trial failed - MRI of left hip (07/03) with nondisplaced proximal IT fx - Re-engaged Ortho on 07/03 - 07/04: OR with Ortho for L CMN - LLE WBAT - Valentine-op Ancef x 24 hrs - POD3 dressing change by Ortho - [place] to be removed 3 weeks post-op - Pain control, PT/OT - Follow-up scheduled on 07/[address] Delvalle located at [facility] ?? #Bacteroides fragilis scrotal abscess and cellulitis - US scrotum (06/17) with left hydrocele and cellulitis - CT pelvis w contrast (06/17) positive for small left scrotal hydrocele, negative for soft tissue gas, and positive for non-displaced trochanteric fracture - Urology consulted:10 day course abx and should heal on its own, call if infection appears worse or changes - Clindamycin discontinued 06/20 - Continue flagyl and bactrim through 06/29 for a total of 12 days since susceptibilities are not back yet - f/u susceptibilities: susceptible to flagyl - Bactrim d/c'd 06/29, Flagyl completed 06/29 ?? #HTN - Home lisinopril 40 mg daily on hold, restart as able - Home lasix 40 mg daily on hold, restart as able - Continue metoprolol - SBP goal <160 #HLD - Continue pravastatin 40 mg daily ?? #DVT ppx: heparin subQ- hold for OR #Dispo: SNF vs Rehab Mauro Persaud NP Cosigned by Deacon Ronald Gardner MD at 07/04/2021 5:38 PM CDT * Christine Oliveira - 07/04/2021 8:00 AM CDT 07/04/21 0800 General OT Missed Visit Reason Procedure/testing/appointment (Pt to OR on this date) Cosigned by Vane Baker OT at 07/04/2021 2:10 PM CDT * Buffy Hidalgo MD - 07/04/2021 7:16 AM CDT Orthopaedic Trauma Service Daily Progress Note Admit Date: 06/11/2021 Hospital Day: 23 MBB Dx: L IT fx Injury Mechanism: SLMF OI: TBI, SAH; chronic draining scrotal abscess PMHx: HTN, atrial fibrillation (on eliquis, last 06/08), CHF, COPD Plan: CMN L IT fx. Procedure(s): PENDING CMN L IT fx , HPI: 71 y.o.male s/p SLMF p/w L IT fx. Fell around 06/06/2021, sustained TBI and SAH, has been encephalopathic w/ AMS since in NICU. Has not been ambulatory 2/2 AMS requiring lift for transfers. Injurynoted on CT abdomen performed for scrotal abscess. Exam: Intermittently participatory on exam, responding yes to all questions. Skin intact. No perceivable pain with logroll/hip ROM, actively moving LLE. Distally motor intact, WWP. OI: SAH/TBI. Consulting Services: Neuro ICU primary, NSGY. PMHx: HTN, atrial fibrillation (on eliquis, last 3/3), CHF, COPD. Soc Hx: + EtOH w/ withdrawals, unkn drugs , retired, lives w/ spouse. Interval History: AFVSS. Starting Hgb 11.8. MRI w L IT fx. Pt failed to mobilization trial w PT. A&OX1. NVI distally. Guarding but not endorsing pain. Plan for CMN L IT fx today. Edited by: Buffy Hidalgo MD at 07/04/2021 0617 Objective Vitals: 24hr Min/Max: Temp Min: 36.3 ??C (97.3 ??F) Max: 36.9 ??C (98.4 ??F) Pulse Min: 68 Max: 103 BP Min: 111/67 Max: 163/89 Resp Min: 16 Max: 18 SpO2 Min: 92 % Max: 100 % I/O last 2 completed shifts: In: 422 [I.V.:422] Out: 0 No intake/output data recorded. Physical Exam: Gen: No acute distress Alert and oriented: x1 Extremity Left Lower extremity Dressing/wound: n/a Immobilization: n/a Sensation: unable to appropriately assess due to current mental status Motor: fires tibialis anterior, gastroc-soleus complex, extensor hallucis longus, flexor hallucis longus Perfusion: toes WWP Lab/Diagnostic Review: Recent Labs Lab Units 07/03/21223407/03/21223207/03/21 0008 SODIUM mmol/L 140 -- 138 POTASSIUM PLASMA mmol/L 4.4 -- 4.3 CHLORIDE mmol/L 105 -- 106 CO2 mmol/L 29 -- 26 ANIONGAP mmol/L 6 -- 6 GLUCOSE mg/dL 106 -- 121 POC GLUCOSE MONITOR -- < > -- BUN SERUM mg/dL 13 -- 12 CREATININE mg/dL 0.75* -- 0.73* CALCIUM mg/dL 9.6 -- 9.1 WBC K/cumm 6.5 -- 6.3 HEMOGLOBIN g/dL 11.8* -- 11.9* HEMATOCRIT % 34.0* -- 35.4* PLATELETS K/cumm 185 -- 184 NEUTROS PCT % -- -- 67.6 LYMPHS PCT % -- -- 21.9 MONOS PCT % -- -- 6.4 EOS PCT % -- -- 3.0 INR 1.2 -- -- < > = values in this interval not displayed. Micro: Lab Results Component Value Date MICROBIOLOGY (.) 06/17/2021 Final Report: Abundant Bacteroides fragilis A molecular marker associated with carbapenem resistance has been detected in this isolate of Bacteroides fragilis. Please see phenotypic antimicrobial susceptibility testing result. Susceptibilities performed by [facility], * * * * * * * * * * * * * * * * * * * * For Bacteroides fragilis susceptibility results, see attached scanned report. * * * * * * * * * * * * * * * * * * * * Few Mixed microorganisms. MICROBIOLOGY 06/16/2021 Final Report: Insignificant growth based on current clinical standards. MICROBIOLOGY Final Report: No growth 06/14/2021 MICROBIOLOGY Final Report: No growth 06/14/2021 MICROBIOLOGY Final Report: No growth 07/13/2020 MICROBIOLOGY Final Report: No growth of fungus 07/13/2020 MICROBIOLOGY (.) 12/19/2019 Final Report: Abundant Escherichia coli * * * * * * * * * * * * * * * * * * * * The susceptibility pattern of this Escherichia coli indicates the possible production of an extended spectrum beta lactamase (ESBL). Patients infected with ESBL-producing organisms require contact isolation precautions. For therapeutic options for this organism, please contact infectious diseases. [x] needs A [x] IPAP called, TTE done on 06/12 [x] Primary team: Cleared for surgery [x] DVT ppx: Heparin (held), last eliquis 06/08 Assessment/Plan: 71 y.o. male p/w the above injuries. Ortho is planning OR today for CMN L IT fx 07/04/21. WB Status: Non-weight bearing left lower extremity Immobilization: n/a Activity: Bedrest Therapy: PT/OT for OOB/mobilization as tolerated post-op. Precautions: None DVT ppx: Holding for OR today Drain: n/a Antibiotics: Periop: Ancef 1-2gm IV Q8hrs for 24 hours postoperative Cultures: n/a Wound Care: n/a Sutures/Alice: n/a Coombs: Per primary Diet: NPO for OR today Additional Needs: n/a Ortho Trauma will continue to follow this patient's hospital course. Dispo: Pending progress, postoperative recovery, and progress with therapy Follow-Up: Patient has follow up scheduled on 07/[address] Delvalle located at [facility] Edited by: Buffy Hidalgo MD at 07/04/2021 0716 Please call with questions during daytime. See below for overnight issues. ??? If you know the resident's name on the appropriate orthopaedic surgery team, please use [email or web address] to page resident directly. ??? If questions arise and the appropriate resident can't be reached or you are calling overnight, please contact [phone] ([facility] 7:30 PM - 6:30 AM - Floor Resident) or [phone] (24 hours/day - Consult Resident) Cosigned by Yoanna Delvalle MD at 07/04/2021 7:19 AM CDT Associated attestation - Yoanna Delvalle MD - 07/04/2021 7:19 AM CDT I have seen and examined the patient on 07/04/21. I agree with the findings and plan of care as documented in the resident's/fellow's note.. failure to mobilize. Complete IT on MRI. Plan for operative fixation * Angelica Juarez RD - 07/03/2021 6:41 PM CDT Nutrition Tube Feeding Assessment Reason for Assessment: follow-up Encounter Date: 07/03/21 6:41 PM Patient is a 71 y.o. male LOS is 22 days. 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 Allergies Allergen Reactions ??? Penicillins Hives Anthropometrics: Wt Readings from Last 3 Encounters: 06/28/21 90 kg (198 lb 6.6 oz) 06/24/21 85.8 kg (189 lb 2.5 oz) 06/18/21 85.8 kg (189 lb 2.5 oz) Anthropometrics Weight: 90 kg (198 lb 6.6 oz) Admission Weight : 80.9 kg Weight Change: 4.20 kg (9.25 lbs) IBW/kg (Calculated) : 78 kg Height: 180.3 cm (5' 10.98 ) Weight in (lb) to have BMI = 25: 178.8 BMI (Calculated): 27.7 Nutrition Needs Calculations: Calculated Energy Needs Using Equations Weight Used for Equation Calculations (RD Determined): 85.8 kg (189 lb 2.5 oz) Weight: 90 kg (198 lb 6.6 oz) Height: 180.3 cm (5' 10.98 ) Minute Ventilation (L/min): 6.6 L/min Estimated Protein Needs Type of Weight Used for Estimated Protein : [place] Protein Needs Based on g/k.2 Total Protein Estimated Needs (gm): 93.6 Kcal/kg Type of Weight Used for Estimated Kcals: Current Kcal/k Total Kcal/kg Estimated Needs : 5 Height: 180.3 cm (5' 10.98 ) Weight: 90 kg (198 lb 6.6 oz) Weight Change: 4.20 kg (9.25 lbs) Medications: Scheduled Meds: docusate, 100 mg, feeding tube, Daily fluticasone furoate-vilanteroL, 1 puff, inhalation, Daily (RT) [Held by Provider] heparin, 5,000 Units, subcutaneous, Q8H MONET heparin, 5,000 Units, subcutaneous, Q8H MONET metoprolol tartrate, 50 mg, feeding tube, BID miconazole, , topical, BID mvdmwqqh-leo-ycstuhd gluconate, 15 mL, feeding tube, Daily pantoprazole, 40 mg, intravenous, Daily pravastatin, 40 mg, feeding tube, Daily ramelteon, 8 mg, feeding tube, Nightly senna, 8.8 mg, feeding tube, BID sodium chloride 0.9%, 0.5-20 mL, intra-catheter, Q8H MONET terazosin, 10 mg, feeding tube, Nightly thiamine, 100 mg, feeding tube, Daily traZODone, 100 mg, feeding tube, Nightly dextrose 5% and Lactated Ringer's, 50 mL/hr, Last Rate: 50 mL/hr (07/03/21 1109) Lab Review: Sodium Date Value Ref Range Status 07/03/2021 138 135 - 145 mmol/L Final Potassium, pl Date Value Ref Range Status 07/03/2021 4.3 3.3 - 4.9 mmol/L Final BUN Date Value Ref Range Status 07/03/2021 12 8 - 25 mg/dL Final Creatinine Date Value Ref Range Status 07/03/2021 0.73 (L) 0.80 - 1.30 mg/dL Final Magnesium Date Value Ref Range Status 07/03/2021 1.8 1.4 - 2.5 mg/dL Final Calcium Date Value Ref Range Status 07/03/2021 9.1 8.5 - 10.3 mg/dL Final Lab Results Component Value Date HGBA1C 5.2 06/12/2021 Nursing Assessment: Intake/Output Summary (Last 24 hours) at 07/03/2021 1841 Last data filed at 07/03/2021 0515 Gross per 24 hour Intake -- Output 0 ml Net 0 ml Gastrointestinal Gastrointestinal (WDL): Exceptions to WDL Abdomen Inspection: Soft Bowel Sounds (All Quadrants): Active Palpation: Soft Last BM Date: 07/02/21 Passing Flatus: Yes GI Symptoms: None Relieved by: Unrelieved (Comment) Gastrointestinal Additional Assessments: No Last BM Date: 07/02/21 Lew Scale Score: 17 Skin Integrity: Redness Dietary Orders (From admission, onward) Start Ordered 07/04/21 0001 NPO Diet Diet effective midnight 07/03/21 1503 06/28/21 1217 Oral Nutrition Supplements Select Supplement: Ensure Pudding - Abby All Meals Question: Select Supplement: Answer: Ensure Pudding - Abby 06/28/21 1216 06/28/21 1215 Adult Diet Restricted; Dysphagia 1 (pureed); No Liquid Diet effective now Question Answer Comment ([facility]) Diet type Restricted Modified Consistency: Dysphagia 1 (pureed) Fluid Consistency: No Liquid 06/28/21 1216 Impression: 07/03: Pt ate better over the weekend with assist with meals. Pt not assisted this morning, did not eat breakfast. Pt continues to be A&Ox2, confused. RN did document lunch today at 100% with help/assist. Noted feeding tube pulled by patient and he ate better with assist over the weekend so tubewas not replaced. Encouraged PO intake. 06/30: Pt ate 0% of lunch and dinner yesterday, today RN reported pt ate 50% of breakfast, however unsure how much was actually consumed. Pt cannot consume liquids, is ordered for ensure pudding at the moment. Team placed dobhoff tube into stomach to help give night cycled tube feeds, order put in. 06/30: per read of tube placement: Successful nasoenteric feeding tube placement in the gastric body. 06/29: Pt with encephalopathy, transferred from neuro floor. Pt with TBI with SAH and IVH. Pt currently noted as A&Ox0. Pt reports he is not sure if he ate breakfast this morning. Pt passed speechtherapy for dysphagia 1 pureed diet with no liquids, pt ordered for ensure pudding to help meet nutrition needs. Pt still has NG tube in place, is currently not being used. Consider tube feeding if pt cannot increase PO intake, however RN notified RD that pt pulled out his feeding tube. Team wanting to see how patient does with meds in applesauce and eating, may need to replace feeding tube tomorrow. Of note, speech therapy was unable to do full normal MBS today due to pt's mental status. Per TEXTILE MACHINE MAINTENANCE MECHANIC, this might be pt's new normal. Consider NG tube placement for now, but consider PEG tube if this w ill be fdc picture. Noted 1 healing wound documented on buttocks. Last documented BM 06/28. Wt Readings from Last 10 Encounters: 06/28/21 90 kg (198 lb 6.6 oz) 06/24/21 85.8 kg (189 lb 2.5 oz) 06/18/21 85.8 kg (189 lb 2.5 oz) 01/25/21 91.6 kg (202 lb) 07/16/20 87.1 kg (192 lb) 07/11/20 86.6 kg (190 lb 14.7 oz) 06/15/20 85.3 kg (188 lb) 02/22/20 88 kg (194 lb 0.1 oz) 01/04/20 78 kg (172 lb) 12/28/19 76.7 kg (169 lb 3.2 oz) NUTRITION DIAGNOSIS Nutrition Diagnosis 1: Inadequate oral intake Related to: Lack of interest Evidenced by: PO under 50% INTERVENTION Currently on dysphagia 1 pureed diet with no liquids. Encouraged PO intake. Continue ensure pudding TID to help meet nutrition needs. Monitor for future swallow eval and diet advancement. Calorie count: 06/28: B:2 bites, L: 250 calories, D: Not documented 06/29: B: refused, L: refused, D: refused 06/30: B: 50 % per RN report, no ticket, L: 0%, D: 0% 07/01: B: 134 calories, L: no ticket, D: 468 calories 07/02: B: 290 calories, L/D: no ticket 07/03: B: 0%, L: 100% GOAL(S) / MONITORING: Goals: Oral intake to meet 75% estimated nutritional needs by next assessment Interventions: Calorie count, Medical food supplement, Other (comment) (possibly restart TF) Monitoring and Evaluation: Appetite, Labs, PO intake, Stool patterns Angelica Juarez, MS RD LD #[phone] * Rui Perez MD - 07/03/2021 2:41 PM CDT Brief Ortho Note MBB Dx: L IT fx Injury Mechanism: SLMF OI: TBI, SAH; chronic draining scrotal abscess PMHx: HTN, atrial fibrillation (on eliquis, last 3), CHF, COPD Plan: CMN L IT fx Procedure(s): PENDING L CMN IT fx , Prior exam: HPI: 71 y.o.male s/p SLMF p/w L IT fx. Fell around 06/06/2021, sustained TBI and SAH, has been encephalopathic w/ AMS since in NICU. Has not been ambulatory 2/2 AMS requiring lift for transfers. Injurynoted on CT abdomen performed for scrotal abscess. Exam: Intermittently participatory on exam, responding yes to all questions. Skin intact. No perceivable pain with logroll/hip ROM, actively moving LLE. Distally motor intact, WWP. OI: SAH/TBI. Consulting Services: Neuro ICU primary, NSGY. PMHx: HTN, atrial fibrillation (on eliquis, last 06/08), CHF, COPD. Soc Hx: + EtOH w/ withdrawals, unkn drugs, retired, lives w/ spouse. Interval History: Ortho called to re-evaluate patient as they had failed mobility/ambulation trial with PT. Subsequently, MRI was done which showed a LEFT intertrochanteric femur fracture. On exam: Patient AO1, per primary team this has been his baseline since admission LLE without deformity, skin intact. Mild TTP at hip Able to actively range knee, ankle, and wiggle toes. Moderately painful w/ gentle log roll. SILT saph/jolie/tib/spn/dpn dp 2+ A/P: 71yo M s/p SLMF p/w L IT fx. Plan for potential operative fixation of L IT fx. -- NWB LLE -- NPO at midnight -- Hold DVT ppx at midnight -- Pain control per primary -- Imaging: Please get new AP pelvis, L femur, L hip films -- Psych attributes AMS to TBI sequelae w/ ICU delirium, they anticipate interval improvement over time. -- Further recs pending discussion w/ Ortho trauma Rui Perez MD Department of Orthopaedic Surgery, PGY-1 [facility] in [place] ? During normal business hours - If you know the resident's name on the appropriate orthopaedic surgery team, please use [email or web address] to page resident directly. ? If you have questions overnight or can't reach the appropriate resident, please call the Orthopaedic Surgery Consult Pager [phone] or [phone] to have your questions answered or be directed to the correct Orthopaedic Surgery resident. Cosigned by Yoanna Delvalle MD at 07/04/2021 12:57 PM CDT * Christine Oliveira - 07/03/2021 11:03 AM CDT Occupational Therapy Progress Note NOTE: This is a summary note of the troy components of the treatment session. For full details, review chart for all flowsheets documented on by this occupational therapy clinician on this date. Vitalsigns documented in vital signs flowsheet. Care plan progress documented in Care Plan Activity. For questions, please review the treatment team and contact the occupational therapist currently assigned to this patient. If an occupational therapist is not assigned to this patient, please call [phone]. Multi-Disciplinary Problems (from Occupational Therapy) Active Problems Problem: Grooming Start Date: 06/29/21 Goal Start Date Expected End Date End Date STG - Patient will complete grooming 06/29/21 07/06/21 -- Goal Details: In unsupported sitting with Mod A Problem: Transfers Start Date: 06/29/21 Goal Start Date Expected End Date End Date STG - Patient will perform toilet transfer 06/29/21 07/06/21 -- Goal Details: To BSC with Mod A Problem: OT Misc Start Date: 06/29/21 Goal Start Date Expected End Date End Date OT STG - Misc 1 06/29/21 07/06/21 -- Goal Details: Patient will maintain static and dynamic sitting balance with mod A in preparation for ADL tasks. Goal Start Date Expected End Date End Date OT STG - Misc 2 06/29/21 07/06/21 -- Goal Details: Patient will follow one step commands with no verbal cues Problem: Dressings Lower Extremities Start Date: 07/03/21 Goal Start Date Expected End Date End Date STG - Patient to complete lower body dressing 07/03/21 07/10/21 -- Goal Details: With min A Problem: Toileting Start Date: 07/03/21 Goal Start Date Expected End Date End Date STG - Patient will complete toileting tasks with 07/03/21 07/10/21 -- Goal Details: With Min A Christine Oliveira, OTS reviewed by Vane Baker 07/03/21 Cosigned by Vane Baker, OT at 07/03/2021 3:19 PM CDT * Elizabeth Persaud, TEXTILE MACHINE MAINTENANCE MECHANIC - 07/03/2021 10:50 AM CDT [facility] Geriatric Trauma Surgery Daily Progress Note Admit: 06/11/2021 6:55 PM Date: July 03, 2021 Length of Stay: 22 Attending: Darrel Wolf,* POD:* No surgery found * History: Jania Redman is a 71 y.o. 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 There was loss of consciousness. Of note, he had an unwitnessed fall the week prior. He was first taken to [facility] via EMS on 06/08 after sustaining fall with LOC at home. At [place] the initial head??CT??was??negative and he was admittedovernight 06/08-06/09 for further evaluation and treatment of possible syncopal episodes. There was reported involuntary movements and nystagmus for which he was loaded with Keppra and planned for EEG, the course of this is unclear. He had reportedly been started on CIWA protocol??with librium.??An MRIlater revealed SAH, IVH, small IPH for which he was ultimately transferred to [facility] as a neurosurgeryprimary patient the evening of 06/11. Overnight 06/11-06/12 the patient was not following commands and was somnolent, worsening following??Ativan administration for high CIWA score. [facility] morning of 06/12??for closer observation. NSGY consulted Medicine servicefor assistance with syncope work-up and management of multiple comorbidities. The patient had ongoing somnolence and lethargy throughout the??morning,??and on??Medicine consult's evaluation, there was concern for??being at risk for airway compromise with his impaired level of consciousness. A nasaltrumpet was placed, and the patient was then transferred to 94 ICU for closer monitoring. Interval History: 07/03: No acute events overnight, Cr 0.73 (0.99). Continues on room air, BM x1. More interactive today. Re-engage Neurology for consult for continued AMS. 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 Notified Ortho regarding results of hip MRI. 07/02: No acute events overnight. Continue to encourage assist with all meals. Obtaining MRI today of right hip. Encourage continued work with therapy services. 07/01: SBFT remains in place, tube feeds at goal. CAOx2 this AM. Neurology consulted for hx seizure surrounding his initial fall. Budesonide started. Encourage continued work with therapy services. 06/30: Na 135 (137). Rate controlled A-fib on tele. BG overnight 70 on BMP, 32 on POCT, patient treated w/ applesauce with sugar packets -> BG 90. IVF increased, POCT accuchecks added. Assist w/ feeding, request for SBFT placement, mBS pending, MRI hip pending. Poor PO intake, continue to encourage additional PO. 06/29: WBC 6.3 (10.2), Hgb 12.2 (11.7), Cr 0.98 (0.95), UOP 550 ml. 2 L IVF completed. Repeat orthostatic vitals pending, carotid duplex performed, MRI L hip pending, repeat modified barium swallow pending. PM&R consult placed. Wean O2. D/c Bactrim, Flagyl to be completed today. Will need head CT just prior to discharge per NSGY. Pt pulled out NG tube, started on IVF. 06/28: Transferred from the ICU to the floor in a stable condition. Vitals stable on admission. NG tube, not on any supplemental oxygen. Hard of hearing, difficulty answering questions. Per ICU signout, A&O x 1 at baseline. No active issues at the moment. Pain:controlled Nausea: No Flatus: No Bowel Movement: Yes Medications: Current Facility-Administered Medications: ??? acetaminophen (TYLENOL) tablet 650 mg, 650 mg, feeding tube, Q4H PRN, Cassie Trent NP, 650 mg at 06/18/21 0035 ??? albuterol 2.5 mg/0.5 mL nebulizer solution 1.25 mg, 1.25 mg, nebulization, Q6H PRN (RT), Jair Jay MD ??? dextrose 5% and Lactated Ringer's infusion, 50 mL/hr, intravenous, Continuous, Elizabeth Persaud NP, Last Rate: 50 mL/hr at 07/03/21 1109, 50 mL/hr at 07/03/21 1109 ??? docusate (COLACE) 10 mg/mL oral liquid 100 mg, 100 mg, feeding tube, Daily, Sada العلي NP, 100 mg at 07/03/21 1052 ??? fluticasone furoate-vilanteroL (BREO ELLIPTA) 100-25 mcg/dose inhaler 1 puff, 1 puff, inhalation, Daily (RT), Jahaira Brown NP, 1 puff at 07/03/21 0910 ??? heparin 5,000 unit/mL injection 5,000 Units, 5,000 Units, subcutaneous, Q8H MONET, Cassie Trent NP, 5,000 Units at 07/03/21 0540 ??? metoprolol tartrate (LOPRESSOR) immediate release tablet 50 mg, 50 mg, feeding tube, BID, Jair Jay MD, 50 mg at 07/03/21 1052 ??? miconazole (SECURA THICK) 2 % cream, , topical, BID, Andreia Ellis MD, Given at 07/03/21 1053 ??? jybfsxxu-ipr-yvtenal gluconate (CENTRUM) 0.6 mg iron/mL oral liquid 15 mL, 15 mL, feeding tube,Daily, Cassie Trent NP, 15 mL at 07/03/21 1052 ??? pantoprazole (PROTONIX) 4 mg/mL injection 40 mg, 40 mg, intravenous, Daily, Mily Cuevas NP, 40 mg at 07/03/21 1051 ??? pravastatin (PRAVACHOL) tablet 40 mg, 40 mg, feeding tube, Daily, Cassie Trent NP, 40mg at 07/03/21 1052 ??? ramelteon (ROZEREM) tablet 8 mg, 8 mg, feeding tube, Nightly, Tamiko Ray, GARIMA, 8 mg at 07/02/21 1735 ??? senna 1.76 mg/mL syrup 8.8 mg, 8.8 mg, feeding tube, BID, Sada العلي NP, 8.8 mg at07/03/21 1052 ??? sodium chloride 0.9% flush 0.5-20 mL, 0.5-20 mL, intra-catheter, Q8H MONET, Belinda Shaffer MD PhD, 10 mL at 07/03/21 0540 ??? sodium chloride 0.9% flush 0.5-20 mL, 0.5-20 mL, intra-catheter, PRN, Belinda Shaffer MD PhD, 10 mL at 06/25/21 0745 ??? terazosin (HYTRIN) capsule 10 mg, 10 mg, feeding tube, Nightly, Ciarra Jama, TEXTILE MACHINE MAINTENANCE MECHANIC, 10 mg at 07/02/21 2115 ??? thiamine (VITAMIN B1) tablet 100 mg, 100 mg, feeding tube, Daily, Jair Jay MD, 100 mg at 07/03/21 1052 ??? traZODone (DESYREL) tablet 100 mg, 100 mg, feeding tube, Nightly, Ciarra Jama NP,100 mg at 07/02/212114 Diet: Dietary Orders (From admission, onward) Start Ordered 06/28/21 1217 Oral Nutrition Supplements Select Supplement: Ensure Pudding - Abby All Meals Question: Select Supplement: Answer: Ensure Pudding - Abby 06/28/21 1216 06/28/21 1215 Adult Diet Restricted; Dysphagia 1 (pureed); No Liquid Diet effective now Question Answer Comment ([facility]) Diet type Restricted Modified Consistency: Dysphagia 1 (pureed) Fluid Consistency: No Liquid 06/28/21 1216 Activity: As tolerated Is&Os: I/O last 2 completed shifts: In: 440 [P.O.:440] Out: 500 [Urine:500] No intake/output data recorded. Physical Exam: 24hr Min/Max: Temp Min: 36.3 ??C (97.3 ??F) Max: 36.7 ??C (98.1 ??F) Pulse Min: 52 Max: 98 BP Min: 124/75 Max: 165/107 Resp Min: 16 Max: 19 SpO2 Min: 91 % Max: 100 % Vitals: 07/03/21 0900 BP: 156/88 Pulse: 92 Resp: Temp: SpO2: 98% Constitutional: well developed, well nourished, cooperative and no apparent distress Head: normocephalic, without obvious abnormality, atraumatic Neurologic: oriented to person cranial Nerves II-XII intact sensation intact all extremities demonstrated purposeful movement in all 4 extremities Eyes: PERRL, pupils: Bilateral: reactive and size 2 mm, conjunctiva normal, left ptosis HENT: lips, mucosa, and tongue normal Neck: supple, symmetrical, trachea midline Chest: normal appearance, no masses or tenderness Respiratory: normal chest rise and fall, diminished breath sounds bilateral and on room air Cardiovascular: regular rate and irregularly irregular rhythm Gastrointestinal: non-distended and soft non-tender Musculoskeletal: extremities normal, warm and well-perfused and no edema Pulses: radial: bilateral normal and PT: bilateral normal Skin: skin color, texture, turgor normal. No rashes or lesions Drains: condom cath with pale yellow efflux Labs/Imaging: Recent Results (from the past 72 hour(s)) POCT glucose Collection Time: 06/30/21 11:49 AM Result Value Ref Range Glucose, POC 106 70 - 199 mg/dL POCT glucose Collection Time: 06/30/21 6:06 PM Result Value Ref Range Glucose, POC 94 70 - 199 mg/dL POCT glucose Collection Time: 06/30/21 10:38 PM Result Value Ref Range Glucose, POC 153 70 - 199 mg/dL POCT glucose Collection Time: 07/01/21 8:54 AM Result Value Ref Range Glucose, POC 102 70 - 199 mg/dL POCT glucose Collection Time: 07/01/21 2:35 PM Result Value Ref Range Glucose, POC 112 70 - 199 mg/dL POCT glucose Collection Time: 07/01/21 10:35 PM Result Value Ref Range Glucose, POC 111 70 - 199 mg/dL POCT glucose Collection Time: 07/02/21 10:09 PM Result Value Ref Range Glucose, POC 112 70 - 199 mg/dL Basic metabolic panel Collection Time: 07/03/21 12:08 AM Result Value Ref Range Sodium 138 135 - 145 mmol/L Potassium, pl 4.3 3.3 - 4.9 mmol/L Chloride 106 97 - 110 mmol/L CO2 26 22 - 32 mmol/L Anion gap 6 2 - 15 mmol/L BUN 12 8 - 25 mg/dL Creatinine 0.73 (L) 0.80 - 1.30 mg/dL Glucose 121 70 - 199 mg/dL Calcium 9.1 8.5 - 10.3 mg/dL CBC with auto differential Collection Time: 07/03/21 12:08 AM Result Value Ref Range WBC 6.3 3.8 - 9.9 K/cumm Hgb 11.9 (L) 13.0 - 17.5 g/dL Hct 35.4 (L) 38.9 - 50.3 % Plt 184 150 - 400 K/cumm MPV 10.2 9.1 - 12.3 fL RBC 3.48 (L) 4.30 - 5.80 M/cumm MCV 101.7 (H) 81.3 - 96.4 fL MCH 34.2 (H) 27.1 - 33.3 pg MCHC 33.6 32.3 - 35.7 g/dL RDW CV 12.3 11.1 - 14.9 % RDW SD 46.3 35.7 - 48.1 fL NRBC abs 0.00 0.00 - 0.01 K/cumm Differential, auto Collection Time: 07/03/21 12:08 AM Result Value Ref Range Neutrophil abs 4.2 1.7 - 6.5 K/cumm Imm gran abs 0.0 0.0 - 0.1 K/cumm Lymphocyte abs 1.4 0.8 - 3.3 K/cumm Monocyte abs 0.4 0.2 - 0.8 K/cumm Eosinophil abs 0.2 0.0 - 0.5 K/cumm Basophil abs 0.0 0.0 - 0.1 K/cumm Neutrophil pct 67.6 % Imm gran pct 0.6 % Lymphocyte pct 21.9 % Monocyte pct 6.4 % Eosinophil pct 3.0 % Basophil pct 0.5 % eGFR Collection Time: 07/03/21 12:08 AM Result Value Ref Range eGFR >90 90 - 130 mL/min/1.73 m2 Magnesium Collection Time: 07/03/21 12:08 AM Result Value Ref Range Magnesium 1.8 1.4 - 2.5 mg/dL No results found. Assessment and Plan: Active Problems: Hypercholesterolemia Hypertension Atrial fibrillation (CMS/HCC) (HCC) Chronic systolic heart failure (CMS/HCC) (HCC) TBI (traumatic brain injury) (CMS/HCC) (HCC) SAH (subarachnoid hemorrhage) (CMS/HCC) ([facility]) Encephalopathy Acute delirium Scrotal abscess Closed nondisplaced intertrochanteric fracture of left femur ([facility]/HCC) ([facility]) Dysphagia Orthostatic hypotension Acute respiratory failure ([facility]) #Traumatic brain injury with SAH and intraventricular hemorrhage - Admitted to NSGY - Keppra 500mg BID x7 days completed - Neuro checks q4hr - PM&R consult - Head CT (07/02) with decreasing IVH - No need for NSGY follow-up, NSGY signed off ?? #Encephalopathy - Etiology seems to be multifactorial with alcohol withdrawal (received librium at OSH), TBI, hospital admission/delirium, possible Wernicke's - s/p 9 days folic acid, 3 days 500 mg IV q8h, thiamine followed by 250 mg x5 days - Neurology consult (re-engaged 07/03) - MVI daily and thiamine 100 mg daily indefinitely ?? #COPD #Acute on chronic respiratory failure - resolving - No home medications - Extubated 06/18 - Patient arrived to floor on face tent - 06/30: on room air - Wean O2 for SpO2 goal 88-92% - Breo-Ellipta started 07/01 for maintenance - PRN albuterol - Incentive spirometry, [place], CPT ?? #Chronic systolic heart failure - per Cardiology note from 01/25/21: asymptomatic mild LV dysfunction, suspect tachycardia mediated - Previously EF 45-50% (2020), now EF 70-75% as of 06/13 - Continue metoprolol 50 mg BID - Holding home lisinopril ?? #Atrial fibrillation with RVR - s/p amio gtt 06/13-06/14; will need outpatient f/u with Panelboard Operator - Continue metoprolol 50 mg BID for rate control - Goal HR <120 - Telemetry ?? #Syncope/Orthostatic hypotension - + orthostatic symptoms as outpatient per and + orthostatics at OSH - TTE unrevealing - Orthostatics positive 06/22 - Received 2 L fluid on 06/28-06/29 - Carotid duplex with less than 50% stenosis bilaterally ?? #Dysphagia due to TBI - On dysphagia 1 diet with NO liquids - Continue calorie count x3 days to ensure adequate PO (initiated on 06/27, continue through 06/30), Nutrition following - NG tube placed for meds, removed by patient on 06/29 - Cognition poor requiring frequent redirection, repeat mBS pending - 2 L IVF completed 06/29 - SBFT placed 06/30, autoremoved by patient 07/01 - Assist 100% with all meals - Continue DDI diet, NO LIQUIDS - final operations technician following - Calorie count ?? #Left IT fracture - Ortho consult - Mobilization trial failed - MRI of left hip (07/03) with nondisplaced proximal IT fx - Re-engaged Ortho on 07/03 - WBAT LLE - Pain control, PT/OT ?? #Bacteroides fragilis scrotal abscess and cellulitis - US scrotum (06/17) with left hydrocele and cellulitis - CT pelvis w contrast (06/17) positive for small left scrotal hydrocele, negative for soft tissue gas, and positive for non-displaced trochanteric fracture - Urology consulted:10 day course abx and should heal on its own, call if infection appears worse or changes - Clindamycin discontinued 06/20 - Continue flagyl and bactrim through 06/29 for a total of 12 days since susceptibilities are not back yet - f/u susceptibilities: susceptible to flagyl - Bactrim d/c'd 06/29, Flagyl completed 06/29 ?? #HTN - Home lisinopril 40 mg daily on hold, restart as able - Home lasix 40 mg daily on hold, restart as able - Continue metoprolol - SBP goal <160 #HLD - Continue pravastatin 40 mg daily ?? #DVT ppx: heparin subQ #Dispo: SNF vs Rehab Mauro Persaud NP Cosigned by Deacon Ronald Gardner MD at 07/03/2021 3:25 PM CDT Associated attestation - Deacon Ronald Gardner MD - 07/03/2021 3:25 PM CDT I have seen and examined the patient on 07/03/21 in conjunction with the TEXTILE MACHINE MAINTENANCE MECHANIC. I agree with evaluation, assessment and plan as documented. My additions are below: History: Unwitnessed fall, transfer from OSH after identification of ICH Injuries: - Left Femur IT Fracture - SAH with IVH Comorbid Conditions: - EtOH abuse - Encephalopathy (since admission, reportedly oriented x4 and conversant at baseline) - HTN - HLD - CHF - COPD - Afib Physical Exam: Interactive, oriented to self Sclera anicteric, no jaundice Respirations even, unlabored Abdomen soft, NTND Extremities warm Assessment/Plan 71 y/o male with mechanism, injuries and comorbid conditions as above. - Appreciate ortho input given MRI findings - Home HTN and HLD meds - Calorie counts Deacon Shannon Gardner MD Adjunct Postdoctoral Fellow Division of Acute and Critical Care Surgery * Yolanda Jackson RN - 07/03/2021 3:53 AM CDT Assessment of patient???s baseline is established at the beginning of the shift in flowsheets. Patient reassessed per order, unexpected findings and/or deviations from baseline are captured in flowsheets. Frequent safety checks and comfort rounds provided. Orders and/or nursing care completed as indicated. Patient monitored for response to interventions and treatments as documented in flowsheets. Plan of care discussed with patient/parts sales representative, including as it relates to Active Problems: Hypercholesterolemia Hypertension Atrial fibrillation ([facility]) (HCC) Chronic systolic heart failure ([facility]) ([facility]) TBI (traumatic brain injury) ([facility]) (HCC) SAH (subarachnoid hemorrhage) ([facility]) (HCC) Encephalopathy Acute delirium Scrotal abscess Closed fracture of trochanter of left femur ([facility]) ([facility]) Dysphagia Orthostatic hypotension Acute respiratory failure ([facility]) Patient progressing. Clinical goals for the shift fall precautions, neuro checks, stable vitals. Education provided includes Fall Prevention and Pain Management. Patient and/or parts sales representative Verbalizes understanding. Will continue to monitor. VSS, fall precautions in place. Pt restless, pulling on telemetry and IV. Pt attempting to get out of bed. Roll belt with bed alarm and comfort measures (music). Pt didn't sleep much at all. Orientedto self. Will continue to monitor. * Guillermina Victor MD - 07/02/2021 2:41 PM CDT Neurosurgery Follow Up Note This patient was seen by the Neurosurgery team for small traumatic subarachnoid hemorrhage, which was managed non-operatively, and followed with stable serial imaging. This patient was staffed with Dr. Kiser, who reviewed the patient's history and imaging. The patient does not need scheduled follow up with Neurosurgery. If there are further questions or concerns regarding this patient, please page the Neurosurgery call pager at [phone], and request the resident caring for Dr. Kiser's patients. Guillermina Victor MD * Jahaira Brown NP - 07/02/2021 12:04 PM CDT [facility] Daily Progress Note Admit: 06/11/2021 6:55 PM Date: July 02, 2021 Length of Stay: 21 Attending: Darrel Wolf,* POD:* No surgery found * History: Jania Redman is a 71 y.o. 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 There was loss of consciousness. Of note, he had an unwitnessed fall the week prior. He was first taken to [facility] via EMS on 06/08 after sustaining fall with LOC at home. At [place] the initial head??CT??was??negative and he was admittedovernight 06/08-06/09 for further evaluation and treatment of possible syncopal episodes. There was reported involuntary movements and nystagmus for which he was loaded with Keppra and planned for EEG, the course of this is unclear. He had reportedly been started on CIWA protocol??with librium.??An MRIlater revealed SAH, IVH, small IPH for which he was ultimately transferred to [facility] as a neurosurgeryprimary patient the evening of 06/11. Overnight 06/11-06/12 the patient was not following commands and was somnolent, worsening following??Ativan administration for high [facility] score. [facility] of [facility]??for closer observation. NSGY consulted Medicine servicefor assistance with syncope work-up and management of multiple comorbidities. The patient had ongoing somnolence and lethargy throughout the??morning,??and on??Medicine consult's evaluation, there was concern for??being at risk for airway compromise with his impaired level of consciousness. A nasaltrumpet was placed, and the patient was then transferred to 9400 ICU for closer monitoring. Interval History: No acute events overnight. Continue to encourage assist with all meals. ObtainingMRI today of right hip. Encourage continued work with therapy services. 07/01: SBFT remains in place, tube feeds at goal. CAOx2 this AM. Neurology consulted for hx seizure surrounding his initial fall. Budesonide started. Encourage continued work with therapy services. 06/30: Na 135 (137). Rate controlled A-fib on tele. BG overnight 70 on BMP, 32 on POCT, patient treated w/ applesauce with sugar packets -> BG 90. IVF increased, POCT accuchecks added. Assist w/ feeding, request for SBFT placement, mBS pending, MRI hip pending. Poor PO intake, continue to encourage additional PO. 06/29: WBC 6.3 (10.2), Hgb 12.2 (11.7), Cr 0.98 (0.95), UOP 550 ml. 2 L IVF completed. Repeat orthostatic vitals pending, carotid duplex performed, MRI L hip pending, repeat modified barium swallow pending. PM&R consult placed. Wean O2. D/c Bactrim, Flagyl to be completed today. Will need head CT just prior to discharge per NSGY. Pt pulled out NG tube, started on IVF. 06/28: Transferred from the ICU to the floor in a stable condition. Vitals stable on admission. NG tube, not on any supplemental oxygen. Hard of hearing, difficulty answering questions. Per ICU signout, A&O x 1 at baseline. No active issues at the moment. Pain:controlled Nausea: No Flatus: No Bowel Movement: Yes Medications: Current Facility-Administered Medications: ??? acetaminophen (TYLENOL) tablet 650 mg, 650 mg, feeding tube, Q4H PRN, Cassie Trent NP, 650 mg at 06/18/21 0035 ??? albuterol 2.5 mg/0.5 mL nebulizer solution 1.25 mg, 1.25 mg, nebulization, Q6H PRN (RT), Jair Jay MD ??? dextrose 5% and Lactated Ringer's infusion, 50 mL/hr, intravenous, Continuous, Elizabeth Persaud NP, Last Rate: 50 mL/hr at 07/02/21239, 50 mL/hr at 07/02/21239 ??? docusate (COLACE) 10 mg/mL oral liquid 100 mg, 100 mg, feeding tube, Daily, Sada العلي, GARIMA, 100 mg at 07/01/21826 ??? fluticasone furoate-vilanteroL (BREO ELLIPTA) 100-25 mcg/dose inhaler 1 puff, 1 puff, inhalation, Daily (RT), Jahaira Brown NP, 1 puff at 07/02/21858 ??? heparin 5,000 unit/mL injection 5,000 Units, 5,000 Units, subcutaneous, Q8H MONET, Cassie Trent NP, 5,000 Units at 07/02/21541 ??? metoprolol tartrate (LOPRESSOR) immediate release tablet 50 mg, 50 mg, feeding tube, BID, Jair Jay MD, 50 mg at 07/01/212051 ??? miconazole (SECURA THICK) 2 % cream, , topical, BID, Andreia Ellis MD, Given at 07/01/212051 ??? yxzlgzdl-wni-yrodxpp gluconate (CENTRUM) 0.6 mg iron/mL oral liquid 15 mL, 15 mL, feeding tube,Daily, Cassie Trent NP, 15 mL at 07/01/21826 ??? pantoprazole (PROTONIX) 4 mg/mL injection 40 mg, 40 mg, intravenous, Daily, Mily Cuevas NP, 40 mg at 07/01/21826 ??? pravastatin (PRAVACHOL) tablet 40 mg, 40 mg, feeding tube, Daily, Cassie Trent NP, 40mg at 07/01/21826 ??? ramelteon (ROZEREM) tablet 8 mg, 8 mg, feeding tube, Nightly, Tamiko Ray NP, 8 mg at 07/01/211818 ??? senna 1.76 mg/mL syrup 8.8 mg, 8.8 mg, feeding tube, BID, Sada العلي NP, 8.8 mg at07/01/21 08 ??? sodium chloride 0.9% flush 0.5-20 mL, 0.5-20 mL, intra-catheter, Q8H MONET, Belinda Shaffer MD PhD, 10 mL at 07/02/21 0542 ??? sodium chloride 0.9% flush 0.5-20 mL, 0.5-20 mL, intra-catheter, PRN, Belinda Shaffer MD PhD, 10 mL at 06/25/21 0745 ??? terazosin (HYTRIN) capsule 10 mg, 10 mg, feeding tube, Nightly, Ciarra Jama NP, 10 mg at 07/01/212051 ??? thiamine (VITAMIN B1) tablet 100 mg, 100 mg, feeding tube, Daily, Jair Jay MD, 100 mg at 07/01/21826 ??? traZODone (DESYREL) tablet 100 mg, 100 mg, feeding tube, Nightly, Ciarra Jama NP,100 mg at 07/01/212051 Diet: Dietary Orders (From admission, onward) Start Ordered 06/30/21 1618 Diet, Tube Feeding With Tray Jevity 1.5 veronica (dobhoff in stomach); 80; 12; 2359-1293; 60; Water; Every 4 hours Diet effective now Question Answer Comment Tube Feeding Formula: Jevity 1.5 veronica dobhoff in stomach Night Continuous (mL/hour): 80 Duration (hr): 12 Tube Feeding Cyclic (start / stop time): 3092-5814 Tube Feeding Flush (mL): 60 Flush Type: Water Flush Frequency: Every 4 hours 06/30/21 1617 06/28/21 1217 Oral Nutrition Supplements Select Supplement: Ensure Pudding - Abby All Meals Question: Select Supplement: Answer: Ensure Pudding - Abby 06/28/21 1216 06/28/21 1215 Adult Diet Restricted; Dysphagia 1 (pureed); No Liquid Diet effective now Question Answer Comment ([facility]) Diet type Restricted Modified Consistency: Dysphagia 1 (pureed) Fluid Consistency: No Liquid 06/28/21 1216 Activity: As tolerated Is&Os: I/O last 2 completed shifts: In: 480 [P.O.:480] Out: 1000 [Urine:1000] No intake/output data recorded. Physical Exam: 24hr Min/Max: Temp Min: 36.3 ??C (97.3 ??F) Max: 37 ??C (98.6 ??F) Pulse Min: 69 Max: 94 BP Min: 109/70 Max: 136/70 Resp Min: 16 Max: 16 SpO2 Min: 96 % Max: 100 % Vitals: 07/02/21 0859 BP: Pulse: Resp: Temp: SpO2: 99% Constitutional: well developed, well nourished, cooperative and no apparent distress Head: normocephalic, without obvious abnormality, atraumatic Neurologic: oriented to person cranial Nerves II-XII intact sensation intact all extremities demonstrated purposeful movement in all 4 extremities Eyes: PERRL, pupils: Bilateral: reactive and size 2 mm, conjunctiva normal, left ptosis HENT: lips, mucosa, and tongue normal Neck: supple, symmetrical, trachea midline Chest: normal appearance, no masses or tenderness Respiratory: normal chest rise and fall, diminished breath sounds bilateral and on room air Cardiovascular: regular rate and irregularly irregular rhythm Gastrointestinal: non-distended and soft non-tender Musculoskeletal: extremities normal, warm and well-perfused and no edema Pulses: radial: bilateral normal and PT: bilateral normal Skin: skin color, texture, turgor normal. No rashes or lesions Drains: condom cath with pale yellow efflux Labs/Imaging: Recent Results (from the past 72 hour(s)) Basic metabolic panel Collection Time: 06/29/21 9:17 PM Result Value Ref Range Sodium 135 135 - 145 mmol/L Potassium, pl 4.5 3.3 - 4.9 mmol/L Chloride 104 97 - 110 mmol/L CO2 24 22 - 32 mmol/L Anion gap 7 2 - 15 mmol/L BUN 17 8 - 25 mg/dL Creatinine 0.99 0.80 - 1.30 mg/dL Glucose 70 70 - 199 mg/dL Calcium 9.2 8.5 - 10.3 mg/dL Magnesium Collection Time: 06/29/21 9:17 PM Result Value Ref Range Magnesium 1.9 1.4 - 2.5 mg/dL eGFR Collection Time: 06/29/21 9:17 PM Result Value Ref Range eGFR 82 (L) 90 - 130 mL/min/1.73 m2 POCT glucose Collection Time: 06/29/21 11:13 PM Result Value Ref Range Glucose, POC 32 (Critical) 70 - 199 mg/dL Glucose comment 1 Glu2: POCT glucose Collection Time: 06/29/21 11:28 PM Result Value Ref Range Glucose, POC 90 70 - 199 mg/dL POCT glucose Collection Time: 06/29/21 11:44 PM Result Value Ref Range Glucose, POC 104 70 - 199 mg/dL POCT glucose Collection Time: 06/30/21 12:37 AM Result Value Ref Range Glucose, POC 123 70 - 199 mg/dL POCT glucose Collection Time: 06/30/21 7:44 AM Result Value Ref Range Glucose, POC 99 70 - 199 mg/dL POCT glucose Collection Time: 06/30/21 11:49 AM Result Value Ref Range Glucose, POC 106 70 - 199 mg/dL POCT glucose Collection Time: 06/30/21 6:06 PM Result Value Ref Range Glucose, POC 94 70 - 199 mg/dL POCT glucose Collection Time: 06/30/21 10:38 PM Result Value Ref Range Glucose, POC 153 70 - 199 mg/dL POCT glucose Collection Time: 07/01/21 8:54 AM Result Value Ref Range Glucose, POC 102 70 - 199 mg/dL POCT glucose Collection Time: 07/01/21 2:35 PM Result Value Ref Range Glucose, POC 112 70 - 199 mg/dL POCT glucose Collection Time: 07/01/21 10:35 PM Result Value Ref Range Glucose, POC 111 70 - 199 mg/dL No results found. Assessment and Plan: Active Problems: Hypercholesterolemia Hypertension Atrial fibrillation ([facility]) ([facility]) Chronic systolic heart failure ([facility]) ([facility]) TBI (traumatic brain injury) ([facility]) ([facility]) SAH (subarachnoid hemorrhage) ([facility]) ([facility]) Encephalopathy Acute delirium Scrotal abscess Closed fracture of trochanter of left femur ([facility]) ([facility]) Dysphagia Orthostatic hypotension Acute respiratory failure ([facility]) #Traumatic brain injury with SAH and intraventricular hemorrhage - Admitted to NS - Keppra 500mg BID x7 days completed - Neuro checks q4hr - - PM&R consult - Will need exit head CT prior to discharge per NSGY ?? #Encephalopathy - Etiology seems to be multifactorial with alcohol withdrawal (received librium at OSH), TBI, hospital admission/delirium, possible Wernicke's - s/p 9 days folic acid, 3 days 500 mg IV q8h, thiamine followed by 250 mg x5 days - Neurology re-engaged for evaluation 07/02 - MVI daily and thiamine 100 mg daily indefinitely ?? #COPD #Acute on chronic respiratory failure - resolving - No home medications - Extubated 06/18 - Patient arrived to floor on face tent - 06/30: on room air - Wean O2 for SpO2 goal 88-92% - Breo-Ellipta started 07/01 for maintenance - PRN albuterol - Incentive spirometry, acapella, CPT ?? #Chronic systolic heart failure - per Cardiology note from 01/25/21: asymptomatic mild LV dysfunction, suspect tachycardia mediated - Previously EF 45-50% (2020), now EF 70-75% as of 06/13 - Continue metoprolol 50 mg BID - Holding home lisinopril ?? #Atrial fibrillation with RVR - s/p amio gtt 06/13-06/14; will need outpatient f/u with Panelboard Operator - Continue metoprolol 50 mg BID for rate control - Goal HR <120 - Telemetry ?? #Syncope/Orthostatic hypotension - + orthostatic symptoms as outpatient per and + orthostatics at OSH - TTE unrevealing - Orthostatics positive 06/22 - Received 2 L fluid on 06/28-06/29 - Repeat orthostatic vitals pending - Carotid duplex with less than 50% stenosis bilaterally ?? #Dysphagia due to TBI - On dysphagia 1 diet with NO liquids - Continue calorie count x3 days to ensure adequate PO (initiated on 06/27, continue through 06/30), Nutrition following - NG tube placed for meds, removed by patient on 06/29 - Cognition poor requiring frequent redirection, repeat mBS pending - 2 L IVF completed 06/29 - SBFT placed 06/30, autoremoved by patient 07/01 - Assist 100% with all meals - Continue DDI diet, NO LIQUIDS - final operations technician following - Calorie count ?? #Left trochanteric fracture - Ortho consult - Mobilization trial failed - MRI of left hip today - WBAT LLE - Pain control, PT/OT ?? #Bacteroides fragilis scrotal abscess and cellulitis - US scrotum (06/17) with left hydrocele and cellulitis - CT pelvis w contrast (06/17) positive for small left scrotal hydrocele, negative for soft tissue gas, and positive for non-displaced trochanteric fracture - Urology consulted:10 day course abx and should heal on its own, call if infection appears worse or changes - Clindamycin discontinued 06/20 - Continue flagyl and bactrim through 06/29 for a total of 12 days since susceptibilities are not back yet - f/u susceptibilities: susceptible to flagyl - Bactrim d/c'd 06/29, Flagyl completed 06/29 ?? #HTN - Home lisinopril 40 mg daily on hold, restart as able - Home lasix 40 mg daily on hold, restart as able - Continue metoprolol - SBP goal <160 #HLD - Continue pravastatin 40 mg daily ?? #DVT ppx: heparin subQ #Dispo: SNF vs Rehab Jahaira Brown NP Cosigned by Deacon Ronald Gardner MD at 07/02/2021 8:31 PM CDT Associated attestation - Deacon Ronald Gardner MD - 07/02/2021 8:31 PM CDT I have seen and examined the patient on 07/02/21 in conjunction with the TEXTILE MACHINE MAINTENANCE MECHANIC. I agree with evaluation, assessment and plan as documented. My additions are below: History: Unwitnessed fall, transfer from OSH after identification of ICH Injuries: - Left Femur IT Fracture - SAH with IVH Comorbid Conditions: - EtOH abuse - Encephalopathy (since admission, reportedly oriented x4 and conversant at baseline) - HTN - HLD - CHF - COPD - Afib Physical Exam: Interactive, oriented to self Sclera anicteric, no jaundice Respirations even, unlabored Abdomen soft, NTND Extremities warm Labs reviewed Assessment/Plan 71 y/o male with mechanism, injuries and comorbid conditions as above. - MRI showing Left IT fx, will re-engage ortho - Home HTN and HLD meds - Patient D-Aaron SBFT, but intake improved, will monitor Deacon Shannon Gardner MD Adjunct Postdoctoral Fellow Division of Acute and Critical Care Surgery * Yolanda Jackson RN - 07/02/2021 4:09 AM CDT Assessment of patient???s baseline is established at the beginning of the shift in flowsheets. Patient reassessed per order, unexpected findings and/or deviations from baseline are captured in flowsheets. Frequent safety checks and comfort rounds provided. Orders and/or nursing care completed as indicated. Patient monitored for response to interventions and treatments as documented in flowsheets. Plan of care discussed with patient/parts sales representative, including as it relates to Active Problems: Hypercholesterolemia Hypertension Atrial fibrillation (CMS/HCC) (HCC) Chronic systolic heart failure (CMS/HCC) (HCC) TBI (traumatic brain injury) (CMS/HCC) (HCC) SAH (subarachnoid hemorrhage) (CMS/HCC) (HCC) Encephalopathy Acute delirium Scrotal abscess Closed fracture of trochanter of left femur (CMS/HCC) (HCC) Dysphagia Orthostatic hypotension Acute respiratory failure (HCC) Patient progressing. Clinical goals for the shift pain management, fall precautions, stable vitals,neuro checks. Education provided includes Fall Prevention and Pain Management. Patient and/or parts sales representative Verbalizes understanding. Will continue to monitor. VSS, neuro checks (sleep hygiene). Fall precautions in place. Will continue to monitor. * Jahaira Brown NP - 07/01/2021 1:37 PM CDT [facility] Surgery Daily Progress Note Admit: 06/11/2021 6:55 PM Date: July 01, 2021 Length of Stay: 20 Attending: Darrel Wolf,* POD:* No surgery found * History: Jania Redman is a 71 y.o. 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 There was loss of consciousness. Of note, he had an unwitnessed fall the week prior. He was first taken to [facility] via EMS on 06/08 after sustaining fall with LOC at home. At [place] the initial head??CT??was??negative and he was admittedovernight 06/08-06/09 for further evaluation and treatment of possible syncopal episodes. There was reported involuntary movements and nystagmus for which he was loaded with Keppra and planned for EEG, the course of this is unclear. He had reportedly been started on CIWA protocol??with librium.??An MRIlater revealed SAH, IVH, small IPH for which he was ultimately transferred to [facility] as a neurosurgeryprimary patient the evening of 06/11. Overnight 06/11-06/12 the patient was not following commands and was somnolent, worsening following??Ativan administration for high CIWA score. [facility]??for closer observation. NSGY consulted Medicine servicefor assistance with syncope work-up and management of multiple comorbidities. The patient had ongoing somnolence and lethargy throughout the??morning,??and on??Medicine consult's evaluation, there was concern for??being at risk for airway compromise with his impaired level of consciousness. A nasaltrumpet was placed, and the patient was then transferred to 9400 ICU for closer monitoring. Interval History: SBFT remains in place, tube feeds at goal. CAOx2 this AM. Neurology consulted forhx seizure surrounding his initial fall. Budesonide started. Encourage continued work with therapy services. 06/30: Na 135 (137). Rate controlled A-fib on tele. BG overnight 70 on BMP, 32 on POCT, patient treated w/ applesauce with sugar packets -> BG 90. IVF increased, POCT accuchecks added. Assist w/ feeding, request for SBFT placement, mBS pending, MRI hip pending. Poor PO intake, continue to encourage additional PO. 06/29: WBC 6.3 (10.2), Hgb 12.2 (11.7), Cr 0.98 (0.95), UOP 550 ml. 2 L IVF completed. Repeat orthostatic vitals pending, carotid duplex performed, MRI L hip pending, repeat modified barium swallow pending. PM&R consult placed. Wean O2. D/c Bactrim, Flagyl to be completed today. Will need head CT just prior to discharge per NSGY. Pt pulled out NG tube, started on IVF. 06/28: Transferred from the ICU to the floor in a stable condition. Vitals stable on admission. NG tube, not on any supplemental oxygen. Hard of hearing, difficulty answering questions. Per ICU signout, A&O x 1 at baseline. No active issues at the moment. Pain:controlled Nausea: No Flatus: No Bowel Movement: Yes Medications: Current Facility-Administered Medications: ??? acetaminophen (TYLENOL) tablet 650 mg, 650 mg, feeding tube, Q4H PRN, Cassie Trent NP, 650 mg at 06/18/21 0035 ??? albuterol 2.5 mg/0.5 mL nebulizer solution 1.25 mg, 1.25 mg, nebulization, Q6H PRN (RT), Jair Jay MD ??? dextrose 5% and Lactated Ringer's infusion, 50 mL/hr, intravenous, Continuous, Elizabeth Persaud NP, Last Rate: 50 mL/hr at 06/30/21 175, 50 mL/hr at 06/30/21 175 ??? docusate (COLACE) 10 mg/mL oral liquid 100 mg, 100 mg, feeding tube, Daily, Sada العلي NP, 100 mg at 07/01/21 0827 ??? fluticasone furoate-vilanteroL (BREO ELLIPTA) 100-25 mcg/dose inhaler 1 puff, 1 puff, inhalation, Daily (RT), Jahaira Brown NP ??? heparin 5,000 unit/mL injection 5,000 Units, 5,000 Units, subcutaneous, Q8H MONET, Cassie Trent NP, 5,000 Units at 07/01/21 0535 ??? metoprolol tartrate (LOPRESSOR) immediate release tablet 50 mg, 50 mg, feeding tube, BID, Jair Jay MD, 50 mg at 07/01/21826 ??? miconazole (SECURA THICK) 2 % cream, , topical, BID, Andreia Ellis MD, Given at 07/01/21 0837 ??? iuutgxja-gpd-rhwxwyn gluconate (CENTRUM) 0.6 mg iron/mL oral liquid 15 mL, 15 mL, feeding tube,Daily, Cassie Trent NP, 15 mL at 07/01/21826 ??? pantoprazole (PROTONIX) 4 mg/mL injection 40 mg, 40 mg, intravenous, Daily, Mily Cuevas NP, 40 mg at 07/01/21826 ??? pravastatin (PRAVACHOL) tablet 40 mg, 40 mg, feeding tube, Daily, Cassie Trent NP, 40mg at 07/01/21826 ??? ramelteon (ROZEREM) tablet 8 mg, 8 mg, feeding tube, Nightly, Tamiko Ray NP, 8 mg at 06/30/21 1754 ??? senna 1.76 mg/mL syrup 8.8 mg, 8.8 mg, feeding tube, BID, Sada العلي NP, 8.8 mg at07/01/21826 ??? sodium chloride 0.9% flush 0.5-20 mL, 0.5-20 mL, intra-catheter, Q8H MONET, Belinda Shaffer MD PhD, 10 mL at 07/01/21 0401 ??? sodium chloride 0.9% flush 0.5-20 mL, 0.5-20 mL, intra-catheter, PRN, Belinda Shaffer MD PhD, 10 mL at 06/25/21 0745 ??? terazosin (HYTRIN) capsule 10 mg, 10 mg, feeding tube, Nightly, Ciarra Jama NP, 10 mg at 06/30/212100 ??? thiamine (VITAMIN B1) tablet 100 mg, 100 mg, feeding tube, Daily, Jair Jay MD, 100 mg at 07/01/21 0827 ??? traZODone (DESYREL) tablet 100 mg, 100 mg, feeding tube, Nightly, Ciarra Jama NP,100 mg at 06/30/21 2100 Diet: Dietary Orders (From admission, onward) Start Ordered 06/30/21 1618 Diet, Tube Feeding With Tray Jevity 1.5 veronica (dobhoff in stomach); 80; 12; 7274-2435; 60; Water; Every 4 hours Diet effective now Question Answer Comment Tube Feeding Formula: Jevity 1.5 veronica dobhoff in stomach Night Continuous (mL/hour): 80 Duration (hr): 12 Tube Feeding Cyclic (start / stop time): 3835-4033 Tube Feeding Flush (mL): 60 Flush Type: Water Flush Frequency: Every 4 hours 06/30/21 1617 06/28/21 1217 Oral Nutrition Supplements Select Supplement: Ensure Pudding - Abby All Meals Question: Select Supplement: Answer: Ensure Pudding - Abby 06/28/21 1216 06/28/21 1215 Adult Diet Restricted; Dysphagia 1 (pureed); No Liquid Diet effective now Question Answer Comment ([facility]) Diet type Restricted Modified Consistency: Dysphagia 1 (pureed) Fluid Consistency: No Liquid 06/28/21 1216 Activity: As tolerated Is&Os: I/O last 2 completed shifts: In: 670 [I.V.:400; NG/GT:260; IV Piggyback:10] Out: 100 [Urine:100] No intake/output data recorded. Physical Exam: 24hr Min/Max: Temp Min: 36.3 ??C (97.3 ??F) Max: 36.9 ??C (98.4 ??F) Pulse Min: 73 Max: 107 BP Min: 103/72 Max: 134/88 Resp Min: 16 Max: 20 SpO2 Min: 93 % Max: 100 % Vitals: 07/01/21 1226 BP: 109/73 Pulse: 73 Resp: Temp: 36.5 ??C (97.7 ??F) SpO2: 98% Constitutional: well developed, well nourished, cooperative and no apparent distress Head: normocephalic, without obvious abnormality, atraumatic Neurologic: oriented to person cranial Nerves II-XII intact sensation intact all extremities demonstrated purposeful movement in all 4 extremities Eyes: PERRL, pupils: Bilateral: reactive and size 2 mm, conjunctiva normal, left ptosis HENT: lips, mucosa, and tongue normal Neck: supple, symmetrical, trachea midline Chest: normal appearance, no masses or tenderness Respiratory: normal chest rise and fall, diminished breath sounds bilateral and on room air Cardiovascular: regular rate and irregularly irregular rhythm Gastrointestinal: non-distended and soft non-tender Musculoskeletal: extremities normal, warm and well-perfused and no edema Pulses: radial: bilateral normal and PT: bilateral normal Skin: skin color, texture, turgor normal. No rashes or lesions Drains: condom cath with pale yellow efflux Labs/Imaging: Recent Results (from the past 72 hour(s)) Basic metabolic panel Collection Time: 06/28/21 10:24 PM Result Value Ref Range Sodium 137 135 - 145 mmol/L Potassium, pl 4.4 3.3 - 4.9 mmol/L Chloride 102 97 - 110 mmol/L CO2 26 22 - 32 mmol/L Anion gap 9 2 - 15 mmol/L BUN 18 8 - 25 mg/dL Creatinine 0.98 0.80 - 1.30 mg/dL Glucose 90 70 - 199 mg/dL Calcium 9.1 8.5 - 10.3 mg/dL CBC without differential Collection Time: 06/28/21 10:24 PM Result Value Ref Range WBC 6.3 3.8 - 9.9 K/cumm Hgb 12.2 (L) 13.0 - 17.5 g/dL Hct 34.5 (L) 38.9 - 50.3 % Plt 217 150 - 400 K/cumm MPV 10.4 9.1 - 12.3 fL RBC 3.48 (L) 4.30 - 5.80 M/cumm MCV 99.1 (H) 81.3 - 96.4 fL MCH 35.1 (H) 27.1 - 33.3 pg MCHC 35.4 32.3 - 35.7 g/dL RDW CV 12.7 11.1 - 14.9 % RDW SD 45.7 35.7 - 48.1 fL NRBC abs 0.00 0.00 - 0.01 K/cumm Magnesium Collection Time: 06/28/21 10:24 PM Result Value Ref Range Magnesium 2.0 1.4 - 2.5 mg/dL eGFR Collection Time: 06/28/21 10:24 PM Result Value Ref Range eGFR 83 (L) 90 - 130 mL/min/1.73 m2 Basic metabolic panel Collection Time: 06/29/21 9:17 PM Result Value Ref Range Sodium 135 135 - 145 mmol/L Potassium, pl 4.5 3.3 - 4.9 mmol/L Chloride 104 97 - 110 mmol/L CO2 24 22 - 32 mmol/L Anion gap 7 2 - 15 mmol/L BUN 17 8 - 25 mg/dL Creatinine 0.99 0.80 - 1.30 mg/dL Glucose 70 70 - 199 mg/dL Calcium 9.2 8.5 - 10.3 mg/dL Magnesium Collection Time: 06/29/21 9:17 PM Result Value Ref Range Magnesium 1.9 1.4 - 2.5 mg/dL eGFR Collection Time: 06/29/21 9:17 PM Result Value Ref Range eGFR 82 (L) 90 - 130 mL/min/1.73 m2 POCT glucose Collection Time: 06/29/21 11:13 PM Result Value Ref Range Glucose, POC 32 (Critical) 70 - 199 mg/dL Glucose comment 1 Glu2: POCT glucose Collection Time: 06/29/21 11:28 PM Result Value Ref Range Glucose, POC 90 70 - 199 mg/dL POCT glucose Collection Time: 06/29/21 11:44 PM Result Value Ref Range Glucose, POC 104 70 - 199 mg/dL POCT glucose Collection Time: 06/30/21 12:37 AM Result Value Ref Range Glucose, POC 123 70 - 199 mg/dL POCT glucose Collection Time: 06/30/21 7:44 AM Result Value Ref Range Glucose, POC 99 70 - 199 mg/dL POCT glucose Collection Time: 06/30/21 11:49 AM Result Value Ref Range Glucose, POC 106 70 - 199 mg/dL POCT glucose Collection Time: 06/30/21 6:06 PM Result Value Ref Range Glucose, POC 94 70 - 199 mg/dL POCT glucose Collection Time: 06/30/21 10:38 PM Result Value Ref Range Glucose, POC 153 70 - 199 mg/dL POCT glucose Collection Time: 07/01/21 8:54 AM Result Value Ref Range Glucose, POC 102 70 - 199 mg/dL No results found. Assessment and Plan: Active Problems: Hypercholesterolemia Hypertension Atrial fibrillation (CMS/[facility]) ([facility]) Chronic systolic heart failure (CMS/[facility]) ([facility]) TBI (traumatic brain injury) ([facility]) ([facility]) SAH (subarachnoid hemorrhage) ([facility]) ([facility]) Encephalopathy Acute delirium Scrotal abscess Closed fracture of trochanter of left femur ([facility]) ([facility]) Dysphagia Orthostatic hypotension Acute respiratory failure ([facility]) #Traumatic brain injury with SAH and intraventricular hemorrhage - Admitted to NS - Keppra 500mg BID x7 days completed - Neuro checks q4hr - - PM&R consult - Will need exit head CT prior to discharge per NSGY ?? #Encephalopathy - Etiology seems to be multifactorial with alcohol withdrawal (received librium at OSH), TBI, hospital admission/delirium, possible Wernicke's - s/p 9 days folic acid, 3 days 500 mg IV q8h, thiamine followed by 250 mg x5 days - MVI daily and thiamine 100 mg daily indefinitely ?? #COPD #Acute on chronic respiratory failure - resolving - No home medications - Extubated 06/18 - Patient arrived to floor on face tent - 06/30: on room air - Wean O2 for SpO2 goal 88-92% - Breo-Ellipta started 07/01 for maintenance - PRN albuterol - Incentive spirometry, acapella, CPT ?? #Chronic systolic heart failure - per Cardiology note from 01/25/21: asymptomatic mild LV dysfunction, suspect tachycardia mediated - Previously EF 45-50% (2020), now EF 70-75% as of 06/13 - Continue metoprolol 50 mg BID - Holding home lisinopril ?? #Atrial fibrillation with RVR - s/p amio gtt 06/13-06/14; will need outpatient f/u with Panelboard Operator - Continue metoprolol 50 mg BID for rate control - Goal HR <120 - Telemetry ?? #Syncope/Orthostatic hypotension - + orthostatic symptoms as outpatient per and + orthostatics at OSH - TTE unrevealing - Orthostatics positive 06/22 - Received 2 L fluid on 06/28-06/29 - Repeat orthostatic vitals pending - Carotid duplex with less than 50% stenosis bilaterally ?? #Dysphagia due to TBI - On dysphagia 1 diet with NO liquids - Continue calorie count x3 days to ensure adequate PO (initiated on 06/27, continue through 06/30), Nutrition following - NG tube placed for meds, removed by patient on 06/29 - Cognition poor requiring frequent redirection, repeat mBS pending - 2 L IVF completed 06/29 - SBFT placed 06/30 - final operations technician following - Tube feeds at goal ?? #Left trochanteric fracture - Ortho consult - Mobilization trial failed - MRI of left hip pending - WBAT LLE - Pain control, PT/OT ?? #Bacteroides fragilis scrotal abscess and cellulitis - US scrotum (06/17) with left hydrocele and cellulitis - CT pelvis w contrast (06/17) positive for small left scrotal hydrocele, negative for soft tissue gas, and positive for non-displaced trochanteric fracture - Urology consulted:10 day course abx and should heal on its own, call if infection appears worse or changes - Clindamycin discontinued 06/20 - Continue flagyl and bactrim through 06/29 for a total of 12 days since susceptibilities are not back yet - f/u susceptibilities: susceptible to flagyl - Bactrim d/c'd 06/29, Flagyl completed 06/29 ?? #HTN - Home lisinopril 40 mg daily on hold, restart as able - Home lasix 40 mg daily on hold, restart as able - Continue metoprolol - SBP goal <160 #HLD - Continue pravastatin 40 mg daily ?? #DVT ppx: heparin subQ #Dispo: SNF vs Rehab Jahaira Brown NP Cosigned by Deacon Ronald Gardner MD at 07/02/2021 8:31 PM CDT Associated attestation - Deacon Ronald Gardner MD - 07/02/2021 8:31 PM CDT I have seen and examined the patient on 07/01/2021 in conjunction with the TEXTILE MACHINE MAINTENANCE MECHANIC. I agree with evaluation, assessment and plan as documented. My additions are below: History: Unwitnessed fall, transfer from OSH after identification of ICH Injuries: - Left Femur Greater Trochanteric Fracture - SAH with IVH Comorbid Conditions: - EtOH abuse - Encephalopathy (since admission, reportedly oriented x4 and conversant at baseline) - HTN - HLD - CHF - COPD - Afib Physical Exam: Interactive, oriented to self Sclera anicteric, no jaundice Respirations even, unlabored Abdomen soft, NTND Extremities warm Labs reviewed Assessment/Plan 71 y/o male with mechanism, injuries and comorbid conditions as above. - Will re-engage neuro given ongoing encephalopathy - Will need MRI for L greater troch fx, possible extension to IT - Completed ABX for scrotal abscess - Home HTN and HLD meds - TF at goal Deacon Shannon Gardner MD Adjunct Postdoctoral Fellow Division of Acute and Critical Care Surgery * Angelica Juarez, RD - 06/30/2021 2:52 PM CDT Nutrition Tube Feeding Assessment Reason for Assessment: follow-up Encounter Date: 06/30/21 2:52 PM Patient is a 71 y.o. male LOS is 19 days. 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 Allergies Allergen Reactions ??? Penicillins Hives Anthropometrics: Wt Readings from Last 3 Encounters: 06/28/21 90 kg (198 lb 6.6 oz) 06/24/21 85.8 kg (189 lb 2.5 oz) 06/18/21 85.8 kg (189 lb 2.5 oz) Anthropometrics Weight: 90 kg (198 lb 6.6 oz) Admission Weight : 80.9 kg Weight Change: 4.20 kg (9.25 lbs) IBW/kg (Calculated) : 78 kg Height: 180.3 cm (5' 10.98 ) Weight in (lb) to have BMI = 25: 178.8 BMI (Calculated): 27.7 Nutrition Needs Calculations: Calculated Energy Needs Using Equations Weight Used for Equation Calculations (RD Determined): 85.8 kg (189 lb 2.5 oz) Weight: 90 kg (198 lb 6.6 oz) Height: 180.3 cm (5' 10.98 ) Minute Ventilation (L/min): 6.6 L/min Estimated Protein Needs Type of Weight Used for Estimated Protein : [place] Protein Needs Based on g/k.2 Total Protein Estimated Needs (gm): 93.6 Kcal/kg Type of Weight Used for Estimated Kcals: Current Kcal/k Total Kcal/kg Estimated Needs : 2145 Height: 180.3 cm (5' 10.98 ) Weight: 90 kg (198 lb 6.6 oz) Weight Change: 4.20 kg (9.25 lbs) Medications: Scheduled Meds: docusate, 100 mg, feeding tube, Daily heparin, 5,000 Units, subcutaneous, Q8H MONET metoprolol tartrate, 50 mg, feeding tube, BID miconazole, , topical, BID lplspcwe-jlb-nbkjrqe gluconate, 15 mL, feeding tube, Daily pantoprazole, 40 mg, intravenous, Daily pravastatin, 40 mg, feeding tube, Daily ramelteon, 8 mg, feeding tube, Nightly senna, 8.8 mg, feeding tube, BID sodium chloride 0.9%, 0.5-20 mL, intra-catheter, Q8H MONET terazosin, 10 mg, feeding tube, Nightly thiamine, 100 mg, feeding tube, Daily traZODone, 100 mg, feeding tube, Nightly dextrose 5% and Lactated Ringer's, 50 mL/hr, Last Rate: 50 mL/hr (06/30/21 0621) Lab Review: Sodium Date Value Ref Range Status 06/29/2021 135 135 - 145 mmol/L Final Potassium, pl Date Value Ref Range Status 06/29/2021 4.5 3.3 - 4.9 mmol/L Final BUN Date Value Ref Range Status 06/29/2021 17 8 - 25 mg/dL Final Creatinine Date Value Ref Range Status 06/29/2021 0.99 0.80 - 1.30 mg/dL Final Magnesium Date Value Ref Range Status 06/29/2021 1.9 1.4 - 2.5 mg/dL Final Calcium Date Value Ref Range Status 06/29/2021 9.2 8.5 - 10.3 mg/dL Final Lab Results Component Value Date HGBA1C 5.2 06/12/2021 Nursing Assessment: Intake/Output Summary (Last 24 hours) at 06/30/2021 1452 Last data filed at 06/30/2021 1400 Gross per 24 hour Intake 410 ml Output 400 ml Net 10 ml Gastrointestinal Gastrointestinal (WDL): Within Defined Limits Abdomen Inspection: Soft, Rounded Bowel Sounds (All Quadrants): Active Palpation: Soft, Nontender Last BM Date: 06/30/21 Passing Flatus: No GI Symptoms: None Relieved by: Unrelieved (Comment) Gastrointestinal Additional Assessments: No Last BM Date: 06/30/21 Lew Scale Score: 14 Skin Integrity: Redness Dietary Orders (From admission, onward) Start Ordered 06/28/21 1217 Oral Nutrition Supplements Select Supplement: Ensure Pudding - Abby All Meals Question: Select Supplement: Answer: Ensure Pudding - Abby 06/28/21 1216 06/28/21 1215 Adult Diet Restricted; Dysphagia 1 (pureed); No Liquid Diet effective now Question Answer Comment ([facility]) Diet type Restricted Modified Consistency: Dysphagia 1 (pureed) Fluid Consistency: No Liquid 06/28/21 1216 Impression: 06/30: Pt ate 0% of lunch and dinner yesterday, today RN reported pt ate 50% of breakfast, however unsure how much was actually consumed. Pt cannot consume liquids, is ordered for ensure pudding at the moment. Team placed dobhoff tube into stomach to help give night cycled tube feeds, order put in. 06/30: per read of tube placement: Successful nasoenteric feeding tube placement in the gastric body. 06/29: Pt with encephalopathy, transferred from neuro floor. Pt with TBI with SAH and IVH. Pt currently noted as A&Ox0. Pt reports he is not sure if he ate breakfast this morning. Pt passed speechtherapy for dysphagia 1 pureed diet with no liquids, pt ordered for ensure pudding to help meet nutrition needs. Pt still has NG tube in place, is currently not being used. Consider tube feeding if pt cannot increase PO intake, however RN notified RD that pt pulled out his feeding tube. Team wanting to see how patient does with meds in applesauce and eating, may need to replace feeding tube tomorrow. Of note, speech therapy was unable to do full normal MBS today due to pt's mental status. Per TEXTILE MACHINE MAINTENANCE MECHANIC, this might be pt's new normal. Consider NG tube placement for now, but consider PEG tube if this will be fdc picture. Noted 1 healing wound documented on buttocks. Last documented BM 06/28. Wt Readings from Last 10 Encounters: 06/28/21 90 kg (198 lb 6.6 oz) 06/24/21 85.8 kg (189 lb 2.5 oz) 06/18/21 85.8 kg (189 lb 2.5 oz) 01/25/21 91.6 kg (202 lb) 07/16/20 87.1 kg (192 lb) 07/11/20 86.6 kg (190 lb 14.7 oz) 06/15/20 85.3 kg (188 lb) 02/22/20 88 kg (194 lb 0.1 oz) 01/04/20 78 kg (172 lb) 12/28/19 76.7 kg (169 lb 3.2 oz) NUTRITION DIAGNOSIS Nutrition Diagnosis 1: Inadequate oral intake Related to: Lack of interest Evidenced by: PO under 50% INTERVENTION Currently on dysphagia 1 pureed diet with no liquids. Encouraged PO intake. Continue ensure pudding TID to help meet nutrition needs. Monitor for future swallow eval and diet advancement. Calorie count: 06/28: B:2 bites, L: 250 calories, D: Not documented 06/29: B: refused, L: refused, D: refused 06/30: B: 50 % per RN report, no ticket Recommend cycled tube feeds to meet part of nutrition needs, would recommend NG tube (dobhoff in stomach) feeds of Jevity 1.5 @ 80 ml/hr x12 hours overnight ([id number]) to provide 1440 veronica (67% estimated nutrition needs) 61 g prot (65% protein needs), 730 ml free water. Minimum flush of 30 ml Q4 hours, adjust as needed. Monitor electrolytes replete PRN. Aspiration precautions. If 100% tube feeding is needed, would recommend NG tube feeds of Jevity 1.5 @ 60 ml/hr which would provide 2160 calories (24 calories/kg), 91.8 gm PRO (1.2 gm/kg/IBW), 1094 ml free water. GOAL(S) / MONITORING: Goals: Oral intake to meet 75% estimated nutritional needs by next assessment Interventions: Calorie count, Medical food supplement, Other (comment) (possibly restart TF) Monitoring and Evaluation: Appetite, Labs, PO intake, Stool patterns Angelica Juarez, MS RD LD #[phone] * Elizabeth Persaud NP - 06/30/2021 11:51 AM CDT [facility] Tra[facility] Surgery Daily Progress Note Admit: 06/11/2021 6:55 PM Date: June 30, 2021 Length of Stay: 19 Attending: Darrel Wolf,* POD:* No surgery found * History: Jania Redman is a 71 y.o. 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 There was loss of consciousness. Of note, he had an unwitnessed fall the week prior. He was first taken to [facility] via EMS on 06/08 after sustaining fall with LOC at home. At [place] the initial head??CT??was??negative and he was admittedovernight 06/08-06/09 for further evaluation and treatment of possible syncopal episodes. There was reported involuntary movements and nystagmus for which he was loaded with Keppra and planned for EEG, the course of this is unclear. He had reportedly been started on CIWA protocol??with librium.??An MRIlater revealed SAH, IVH, small IPH for which he was ultimately transferred to [facility] as a neurosurgeryprimary patient the evening of 06/11. Overnight 06/11-06/12 the patient was not following commands and was somnolent, worsening following??Ativan administration for high CIWA score. [facility] morning of 06/12??for closer observation. NSGY consulted Medicine servicefor assistance with syncope work-up and management of multiple comorbidities. The patient had ongoing somnolence and lethargy throughout the??morning,??and on??Medicine consult's evaluation, there was concern for??being at risk for airway compromise with his impaired level of consciousness. A nasaltrumpet was placed, and the patient was then transferred to [facility] [place] ICU for closer monitoring. Interval History: 06/30: Na 135 (137). Rate controlled A-fib on tele. BG overnight 70 on BMP, 32 on POCT, patient treated w/ applesauce with sugar packets -> BG 90. IVF increased, POCT accuchecks added. Assist w/ feeding, request for SBFT placement, mBS pending, MRI hip pending. Poor PO intake, continue to encourage additional PO. 06/29: WBC 6.3 (10.2), Hgb 12.2 (11.7), Cr 0.98 (0.95), UOP 550 ml. 2 L IVF completed. Repeat orthostatic vitals pending, carotid duplex performed, MRI L hip pending, repeat modified barium swallow pending. PM&R consult placed. Wean O2. D/c Bactrim, Flagyl to be completed today. Will need head CT just prior to discharge per NSGY. Pt pulled out NG tube, started on IVF. 06/28: Transferred from the ICU to the floor in a stable condition. Vitals stable on admission. NG tube, not on any supplemental oxygen. Hard of hearing, difficulty answering questions. Per ICU signout, A&O x 1 at baseline. No active issues at the moment. Pain:controlled Nausea: No Flatus: No Bowel Movement: Yes Medications: Current Facility-Administered Medications: ??? acetaminophen (TYLENOL) tablet 650 mg, 650 mg, feeding tube, Q4H PRN, Cassie Trent NP, 650 mg at 06/18/21 0035 ??? albuterol 2.5 mg/0.5 mL nebulizer solution 1.25 mg, 1.25 mg, nebulization, Q6H PRN (RT), Jair Jay MD ??? dextrose 5% and Lactated Ringer's infusion, 50 mL/hr, intravenous, Continuous, Elizabeth Persaud NP, Last Rate: 50 mL/hr at 06/30/21620, 50 mL/hr at 06/30/21620 ??? docusate (COLACE) 10 mg/mL oral liquid 100 mg, 100 mg, feeding tube, Daily, Sada العلي NP, 100 mg at 06/29/21 0946 ??? heparin 5,000 unit/mL injection 5,000 Units, 5,000 Units, subcutaneous, Q8H MONET, Cassie Trent NP, 5,000 Units at 06/30/21 0615 ??? metoprolol tartrate (LOPRESSOR) immediate release tablet 50 mg, 50 mg, feeding tube, BID, Jair Jay MD, 50 mg at 06/30/21927 ??? miconazole (SECURA THICK) 2 % cream, , topical, BID, Andreia Ellis MD, Given at 06/30/21 0931 ??? [id number] gluconate (CENTRUM) 0.6 mg iron/mL oral liquid 15 mL, 15 mL, feeding tube,Daily, Cassie Trent NP, 15 mL at 06/30/21927 ??? pantoprazole (PROTONIX) 4 mg/mL injection 40 mg, 40 mg, intravenous, Daily, Mily Cuevas NP, 40 mg at 06/30/21 0913 ??? pravastatin (PRAVACHOL) tablet 40 mg, 40 mg, feeding tube, Daily, Cassie Trent, GARIMA, 40mg at 06/30/21 0928 ??? ramelteon (ROZEREM) tablet 8 mg, 8 mg, feeding tube, Nightly, Tamiko Ray, GARIMA, 8 mg at 06/29/21 1745 ??? senna 1.76 mg/mL syrup 8.8 mg, 8.8 mg, feeding tube, BID, Sada العلي, GARIMA, 8.8 mg at06/29/212114 ??? sodium chloride 0.9% flush 0.5-20 mL, 0.5-20 mL, intra-catheter, Q8H MONET, Belinda Shaffer MD PhD, 10 mL at 06/30/21 0616 ??? sodium chloride 0.9% flush 0.5-20 mL, 0.5-20 mL, intra-catheter, PRN, Belinda Shaffer MD PhD, 10 mL at 06/25/21 0745 ??? terazosin (HYTRIN) capsule 10 mg, 10 mg, feeding tube, Nightly, Ciarra Jama NP, 10 mg at 06/29/212112 ??? thiamine (VITAMIN B1) tablet 100 mg, 100 mg, feeding tube, Daily, Jair Jay MD, 100 mg at 06/30/21 09 ??? traZODone (DESYREL) tablet 100 mg, 100 mg, feeding tube, Nightly, Ciarra Jama NP,100 mg at 06/29/212114 Diet: Dietary Orders (From admission, onward) Start Ordered 06/28/21 1217 Oral Nutrition Supplements Select Supplement: Ensure Pudding - Abby All Meals Question: Select Supplement: Answer: Ensure Pudding - Abby 06/28/21 1216 06/28/21 1215 Adult Diet Restricted; Dysphagia 1 (pureed); No Liquid Diet effective now Question Answer Comment ([facility]) Diet type Restricted Modified Consistency: Dysphagia 1 (pureed) Fluid Consistency: No Liquid 06/28/21 121 Activity: As tolerated Is&Os: I/O last 2 completed shifts: In: - Out: 975 [Urine:975] I/O this shift: In: 10 [IV Piggyback:10] Out: - Physical Exam: 24hr Min/Max: Temp Min: 36.3 ??C (97.3 ??F) Max: 36.7 ??C (98.1 ??F) Pulse Min: 78 Max: 98 BP Min: 99/65 Max: 142/77 Resp Min: 18 Max: 19 SpO2 Min: 94 % Max: 100 % Vitals: 06/30/21 1150 BP: 113/69 Pulse: 92 Resp: Temp: 36.4 ??C (97.5 ??F) SpO2: 96% Constitutional: well developed, well nourished, cooperative and no apparent distress Head: normocephalic, without obvious abnormality, atraumatic Neurologic: oriented to person cranial Nerves II-XII intact sensation intact all extremities demonstrated purposeful movement in all 4 extremities Eyes: PERRL, pupils: Bilateral: reactive and size 2 mm, conjunctiva normal, left ptosis HENT: lips, mucosa, and tongue normal Neck: supple, symmetrical, trachea midline Chest: normal appearance, no masses or tenderness Respiratory: normal chest rise and fall, diminished breath sounds bilateral and on room air Cardiovascular: regular rate and irregularly irregular rhythm Gastrointestinal: non-distended and soft non-tender Musculoskeletal: extremities normal, warm and well-perfused and no edema Pulses: radial: bilateral normal and PT: bilateral normal Skin: skin color, texture, turgor normal. No rashes or lesions Drains: condom cath with pale yellow efflux Labs/Imaging: Recent Results (from the past 72 hour(s)) Basic metabolic panel Collection Time: 06/27/21 9:45 PM Result Value Ref Range Sodium 133 (L) 135 - 145 mmol/L Potassium, pl 4.7 3.3 - 4.9 mmol/L Chloride 99 97 - 110 mmol/L CO2 27 22 - 32 mmol/L Anion gap 7 2 - 15 mmol/L BUN 20 8 - 25 mg/dL Creatinine 0.95 0.80 - 1.30 mg/dL Glucose 107 70 - 199 mg/dL Calcium 9.4 8.5 - 10.3 mg/dL CBC without differential Collection Time: 06/27/21 9:45 PM Result Value Ref Range WBC 10.2 (H) 3.8 - 9.9 K/cumm Hgb 11.7 (L) 13.0 - 17.5 g/dL Hct 33.7 (L) 38.9 - 50.3 % Plt 240 150 - 400 K/cumm MPV 10.7 9.1 - 12.3 fL RBC 3.41 (L) 4.30 - 5.80 M/cumm MCV 98.8 (H) 81.3 - 96.4 fL MCH 34.3 (H) 27.1 - 33.3 pg MCHC 34.7 32.3 - 35.7 g/dL RDW CV 12.6 11.1 - 14.9 % RDW SD 45.4 35.7 - 48.1 fL NRBC abs 0.00 0.00 - 0.01 K/cumm Magnesium Collection Time: 06/27/21 9:45 PM Result Value Ref Range Magnesium 2.2 1.4 - 2.5 mg/dL eGFR Collection Time: 06/27/21 9:45 PM Result Value Ref Range eGFR 86 (L) 90 - 130 mL/min/1.73 m2 Basic metabolic panel Collection Time: 06/28/21 10:24 PM Result Value Ref Range Sodium 137 135 - 145 mmol/L Potassium, pl 4.4 3.3 - 4.9 mmol/L Chloride 102 97 - 110 mmol/L CO2 26 22 - 32 mmol/L Anion gap 9 2 - 15 mmol/L BUN 18 8 - 25 mg/dL Creatinine 0.98 0.80 - 1.30 mg/dL Glucose 90 70 - 199 mg/dL Calcium 9.1 8.5 - 10.3 mg/dL CBC without differential Collection Time: 06/28/21 10:24 PM Result Value Ref Range WBC 6.3 3.8 - 9.9 K/cumm Hgb 12.2 (L) 13.0 - 17.5 g/dL Hct 34.5 (L) 38.9 - 50.3 % Plt 217 150 - 400 K/cumm MPV 10.4 9.1 - 12.3 fL RBC 3.48 (L) 4.30 - 5.80 M/cumm MCV 99.1 (H) 81.3 - 96.4 fL MCH 35.1 (H) 27.1 - 33.3 pg MCHC 35.4 32.3 - 35.7 g/dL RDW CV 12.7 11.1 - 14.9 % RDW SD 45.7 35.7 - 48.1 fL NRBC abs 0.00 0.00 - 0.01 K/cumm Magnesium Collection Time: 06/28/21 10:24 PM Result Value Ref Range Magnesium 2.0 1.4 - 2.5 mg/dL eGFR Collection Time: 06/28/21 10:24 PM Result Value Ref Range eGFR 83 (L) 90 - 130 mL/min/1.73 m2 Basic metabolic panel Collection Time: 06/29/21 9:17 PM Result Value Ref Range Sodium 135 135 - 145 mmol/L Potassium, pl 4.5 3.3 - 4.9 mmol/L Chloride 104 97 - 110 mmol/L CO2 24 22 - 32 mmol/L Anion gap 7 2 - 15 mmol/L BUN 17 8 - 25 mg/dL Creatinine 0.99 0.80 - 1.30 mg/dL Glucose 70 70 - 199 mg/dL Calcium 9.2 8.5 - 10.3 mg/dL Magnesium Collection Time: 06/29/21 9:17 PM Result Value Ref Range Magnesium 1.9 1.4 - 2.5 mg/dL eGFR Collection Time: 06/29/21 9:17 PM Result Value Ref Range eGFR 82 (L) 90 - 130 mL/min/1.73 m2 POCT glucose Collection Time: 06/29/21 11:13 PM Result Value Ref Range Glucose, POC 32 (Critical) 70 - 199 mg/dL Glucose comment 1 Glu2: POCT glucose Collection Time: 06/29/21 11:28 PM Result Value Ref Range Glucose, POC 90 70 - 199 mg/dL POCT glucose Collection Time: 06/29/21 11:44 PM Result Value Ref Range Glucose, POC 104 70 - 199 mg/dL POCT glucose Collection Time: 06/30/21 12:37 AM Result Value Ref Range Glucose, POC 123 70 - 199 mg/dL POCT glucose Collection Time: 06/30/21 7:44 AM Result Value Ref Range Glucose, POC 99 70 - 199 mg/dL POCT glucose Collection Time: 06/30/21 11:49 AM Result Value Ref Range Glucose, POC 106 70 - 199 mg/dL No results found. Assessment and Plan: Active Problems: Hypercholesterolemia Hypertension Atrial fibrillation (CMS/HCC) (HCC) Chronic systolic heart failure (CMS/HCC) (HCC) TBI (traumatic brain injury) (CMS/HCC) (HCC) SAH (subarachnoid hemorrhage) (CMS/HCC) (HCC) Encephalopathy Acute delirium Scrotal abscess Closed fracture of trochanter of left femur (CMS/HCC) (HCC) Dysphagia Orthostatic hypotension Acute respiratory failure (HCC) #Traumatic brain injury with SAH and intraventricular hemorrhage - Admitted to NSGY - Brain injury consult - Neuro checks q4h - PT, OT, COTTAGE CHEESE MAKER consults - PM&R consult - Will need exit head CT prior to discharge per NSGY ?? #Encephalopathy - Etiology seems to be multifactorial with alcohol withdrawal (received librium at OSH), TBI, hospital admission/delirium, possible Wernicke's - s/p 9 days folic acid, 3 days 500 mg IV q8h, thiamine followed by 250 mg x5 days - MVI daily and thiamine 100 mg daily indefinitely ?? #Acute delirium - Sleep hygiene - Delirium precautions - Ramelteon and trazodone 100mg QHS ?? #COPD #Acute on chronic respiratory failure - resolving - No home medications - Extubated 06/18 - On high humidity face tent until 06/25 -> room air - Patient arrived to floor on face tent - 06/30: on room air - Wean O2 for SpO2 goal 88-92% - PRN albuterol - Incentive spirometry, acapella, CPT ?? #Chronic systolic heart failure - per Cardiology note from 01/25/21: asymptomatic mild LV dysfunction, suspect tachycardia mediated - Previously EF 45-50% (2020), now EF 70-75% as of 06/13 - Continue metoprolol 50 mg BID - Holding home lisinopril ?? #Atrial fibrillation with RVR - s/p amio gtt 06/13-06/14; will need outpatient f/u with Panelboard Operator - Continue metoprolol 50 mg BID for rate control - Goal HR <120 - Telemetry ?? #Syncope/Orthostatic hypotension - + orthostatic symptoms as outpatient per and + orthostatics at OSH - TTE unrevealing - Orthostatics positive 06/22 - Received 2 L fluid on 06/28-06/29 - Repeat orthostatic vitals pending - Carotid duplex with less than 50% stenosis bilaterally ?? #Dysphagia due to TBI - On dysphagia 1 diet with NO liquids - Continue calorie count x3 days to ensure adequate PO (initiated on 06/27, continue through 06/30), Nutrition following - NG tube placed for meds, removed by patient on 06/29 - Cognition poor requiring frequent redirection, repeat mBS pending - 2 L IVF completed 06/29 - D5LR@50 ml/hr, crushed meds in applesauce while pending enteral access - SBFT placement pending, tube feeding orders on hold ?? #L trochanteric fracture - Ortho consult - WBAT LLE - Failed trial mobilization with PT - MRI of left hip pending ?? #Bacteroides fragilis scrotal abscess and cellulitis - US scrotum (06/17) with left hydrocele and cellulitis - CT pelvis w contrast (06/17) positive for small left scrotal hydrocele, negative for soft tissue gas, and positive for non-displaced trochanteric fracture - Urology consulted:10 day course abx and should heal on its own, call if infection appears worse or changes - Clindamycin discontinued 06/20 - Continue flagyl and bactrim through 06/29 for a total of 12 days since susceptibilities are not back yet - f/u susceptibilities: susceptible to flagyl - Bactrim d/c'd 06/29, Flagyl completed 06/29 ?? #HTN - Home lisinopril 40 mg daily on hold, restart as able - Home lasix 40 mg daily on hold, restart as able - Continue metoprolol - SBP goal <160 #HLD - Continue pravastatin 40 mg daily ?? #DVT ppx: heparin subQ #Dispo: SNF vs Rehab Mauro Persaud NP Cosigned by Rush Meneses MD at 06/30/2021 2:51 PM CDT * Karlee Godfrey LCSW - 06/30/2021 10:22 AM CDT Per DCAM, pt is not medically stable for discharge. Pt currently working with PT/Ot to continue to assess IPR vs SNF appropriateness. SW to continue to follow. Karlee Mccann LCSW [facility] Social Work [phone] For emergency needs from 4:31p.m. - 7:59a.m., please call the ED Moving Consultant . For weekend needs from 8:00a.m. - 4:30p.m., please call the Weekend Social Work Staff . * Christine Oliveira - 06/30/2021 10:16 AM CDT Occupational Therapy Progress Note NOTE: This is a summary note of the troy components of the treatment session. For full details, review chart for all flowsheets documented on by this occupational therapy clinician on this date. Vitalsigns documented in vital signs flowsheet. Care plan progress documented in Care Plan Activity. For questions, please review the treatment team and contact the occupational therapist currently assigned to this patient. If an occupational therapist is not assigned to this patient, please call [phone]. 06/30/21 1016 General Session Type Treatment OT Received On 06/30/21 Safe Environment Arm Band Checked;Call Light within Reach;Notified RN;Patient found in Supine (Pt left lying in supine w/ HOB elevated) Subjective Agreeable to Therapy Family/Caregiver Present No Precautions Precautions Fall risk;Seizure Weight Bearing Restrictions Yes LLE Weight Bearing WBAT Precaution Comments OTS wore surgical mask, isolation gown, and gloves ADL ADLS (WDL) X Grooming Grooming: Where assessed Edge of bed (sitting) Grooming: Level of assistance Moderate Assist (Mod A for task. Mod A for balance.) Grooming: Assistance with Increased time to complete;Reaching all areas of head/face;Safety;Attending to task LE Dressing LE Dressing: Where assessed Sitting;Edge of bed LE Dressing: Level of assistance Maximum Assist (Max A for task. Mod A for balance.) LE Dressing: Assistance with Verbal cueing;Supervision/safety;Increased time to complete;Don/doff Rsock;Don/doff L sock;Thread RLE into pants;Thread LLE into pants;Thread RLE into underwear;Thread LLE into underwear;Pull up over hips Pain Assessment Pain Assessment No/denies pain Cognition Overall Cognitive Status Impaired (Pt scored 04/29 on [place]) Arousal/Alertness Alert;Appropriate responses to stimuli Attention Span Attends with cues to redirect Memory Decreased short term memory Current communication Appears Intact Orientation Oriented to person;Oriented to place Following Commands Follows one step commands with repetition Safety Judgment Decreased awareness of need for assistance Awareness of Errors Assistance required to correct errors made Insight Decreased awareness of deficits Problem Solving Assistance required to identify errors made;Assistance required to generate solutions;Assistance required to implement solutions Compliance/Behavior Easy to engage Perseveration Not present Balance Balance Yes Static Sitting Balance Static Sitting-Balance Support Bilateral upper extremity supported;Feet supported (on bed) Static Sitting-Sitting Surface Bed Static Sitting-Level of Assistance Moderate assistance Static Sitting-Comment/# of Minutes For safety and maintaining upright posture. Dynamic Sitting Balance Dynamic Sitting-Balance Support Unilateral upper extremity supported;Feet supported (on bed) Dynamic Sitting-Balance Lateral lean;Forward lean;Reaching for objects (During functional tasks of LB dressing and grooming) Dynamic Sitting-Sitting Surface Bed Dynamic Sitting-Level of Assistance Moderate assistance Dynamic Sitting-Comments For safety and maintaining upright posture Bed Mobility Bed Mobility Yes Bed Mobility 1 Bed Mobility From 1 Supine Bed Mobility Type 1 To and from Bed Mobility to 1 Rolling left Level of Assistance 1 Maximum Assist Bed Mobility Comments 1 For force production and safety Bed Mobility 2 Bed Mobility From 2 Supine Bed Mobility Type 2 To and from Bed Mobility to 2 Edge of Bed Level of Assistance 2 Maximum Assist (x2) Bed Mobility Comments 2 For lowering and elevating B LE, for elevating and lowering trunk, and moving hips forward. Transfers Transfer No Other Comments Comments Pt followed one step commands with minimal verbal cues during session on this date. Pt demonstrated being more alert and awake during this session as pt participated in [place] screening.Pt tolerated sitting EOB for 5 minutes before laying back down. Pt verbalized understanding to continued POC. Daily Activity - 6 Clicks Putting on and taking off regular lower body clothing 2 Bathing 2 Toileting 1 Putting on and taking off upper body clothing 2 Personal Grooming 2 Eating Meals 1 Total Score (range 6-24) 10 Score Interpretation 27.31 Assessment Problem List Decreased cognition;Decreased endurance;Decreased balance;Decreased functional mobility;Decreased ADL independence;Decreased IADL independence;Decreased upper extremity strength;Visual deficit Barriers to Discharge Current Mobility Status Barrier Comments Fall risk Plan Plan Continue with current plan;If this is the last note, consider this the discharge summary Recommendation/Plan OT Recommendation Inpatient Rehab Facility OT Recommendation/Plan Comments Pt would benefit from continued skilled OT services to improve UE strength, balance, functional mobility, ADL and IADL independence. OT Frequency 5-7x/wk Treatment/Interventions ADL/IADL retraining;Balance Training;Bed mobility;Endurance training;Functional activity;Functional mobility training;Functional transfer training;Strengthening;Therapeutic act ivity;Therapeutic exercise;Transfer training OT Equipment Recommended Shower chair Progress Progressing toward goals OT - Next Appointment 07/03/21 Multi-Disciplinary Problems (from Occupational Therapy) Active Problems Problem: Dressings Lower Extremities Start Date: 06/29/21 Goal Start Date Expected End Date End Date STG - Patient to complete lower body dressing 06/29/21 07/06/21 -- Goal Details: With Mod A Problem: Grooming Start Date: 06/29/21 Goal Start Date Expected End Date End Date STG - Patient will complete grooming 06/29/21 07/06/21 -- Goal Details: In unsupported sitting with Mod A Problem: Toileting Start Date: 06/29/21 Goal Start Date Expected End Date End Date STG - Patient will complete toileting tasks with 06/29/21 07/06/21 -- Goal Details: With Mod A Problem: Transfers Start Date: 06/29/21 Goal Start Date Expected End Date End Date STG - Patient will perform toilet transfer 06/29/21 07/06/21 -- Goal Details: To BSC with Mod A Problem: OT Misc Start Date: 06/29/21 Goal Start Date Expected End Date End Date OT STG - Misc 1 06/29/21 07/06/21 -- Goal Details: Patient will maintain static and dynamic sitting balance with mod A in preparation for ADL tasks. Goal Start Date Expected End Date End Date OT STG - Misc 2 06/29/21 07/06/21 -- Goal Details: Patient will follow one step commands with no verbal cues VIJI Arias reviewed by Vane Baker 06/30/21 Cosigned by Vane Baker OT at 06/30/2021 3:23 PM CDT * Angelica Juarez RD - 06/29/2021 2:33 PM CDT Nutrition Tube Feeding Assessment Reason for Assessment: follow-up Encounter Date: 06/29/21 2:33 PM Patient is a 71 y.o. male LOS is 18 days. 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 Allergies Allergen Reactions ??? Penicillins Hives Anthropometrics: Wt Readings from Last 3 Encounters: 06/28/21 90 kg (198 lb 6.6 oz) 06/24/21 85.8 kg (189 lb 2.5 oz) 06/18/21 85.8 kg (189 lb 2.5 oz) Anthropometrics Weight: 90 kg (198 lb 6.6 oz) Admission Weight : 80.9 kg Weight Change: 4.20 kg (9.25 lbs) IBW/kg (Calculated) : 78 kg Height: 180.3 cm (5' 10.98 ) Weight in (lb) to have BMI = 25: 178.8 BMI (Calculated): 27.7 Nutrition Needs Calculations: Calculated Energy Needs Using Equations Weight Used for Equation Calculations (RD Determined): 85.8 kg (189 lb 2.5 oz) Weight: 90 kg (198 lb 6.6 oz) Height: 180.3 cm (5' 10.98 ) Minute Ventilation (L/min): 6.6 L/min Estimated Protein Needs Type of Weight Used for Estimated Protein : [place] Protein Needs Based on g/k.2 Total Protein Estimated Needs (gm): 93.6 Kcal/kg Type of Weight Used for Estimated Kcals: Current Kcal/k Total Kcal/kg Estimated Needs : 2144 Height: 180.3 cm (5' 10.98 ) Weight: 90 kg (198 lb 6.6 oz) Weight Change: 4.20 kg (9.25 lbs) Medications: Scheduled Meds: docusate, 100 mg, feeding tube, Daily heparin, 5,000 Units, subcutaneous, Q8H MONET metoprolol tartrate, 50 mg, feeding tube, BID metroNIDAZOLE, 500 mg, feeding tube, Q8H MONET miconazole, , topical, BID foazerqc-ffm-[id number] gluconate, 15 mL, feeding tube, Daily pantoprazole, 40 mg, intravenous, Daily pravastatin, 40 mg, feeding tube, Daily ramelteon, 8 mg, feeding tube, Nightly senna, 8.8 mg, feeding tube, BID sodium chloride 0.9%, 0.5-20 mL, intra-catheter, Q8H MONET terazosin, 10 mg, feeding tube, Nightly thiamine, 100 mg, feeding tube, Daily traZODone, 100 mg, feeding tube, Nightly Lab Review: Sodium Date Value Ref Range Status 06/28/2021 137 135 - 145 mmol/L Final Potassium, pl Date Value Ref Range Status 06/28/2021 4.4 3.3 - 4.9 mmol/L Final BUN Date Value Ref Range Status 06/28/2021 18 8 - 25 mg/dL Final Creatinine Date Value Ref Range Status 06/28/2021 0.98 0.80 - 1.30 mg/dL Final Magnesium Date Value Ref Range Status 06/28/2021 2.0 1.4 - 2.5 mg/dL Final Calcium Date Value Ref Range Status 06/28/2021 9.1 8.5 - 10.3 mg/dL Final Lab Results Component Value Date HGBA1C 5.2 06/12/2021 Nursing Assessment: Intake/Output Summary (Last 24 hours) at 06/29/2021 1433 Last data filed at 06/29/2021 0839 Gross per 24 hour Intake 1801 ml Output 575 ml Net 1226 ml Gastrointestinal Gastrointestinal (WDL): Within Defined Limits Abdomen Inspection: Soft, Rounded Bowel Sounds (All Quadrants): Active Palpation: Soft, Nontender Last BM Date: 06/28/21 Passing Flatus: Yes GI Symptoms: None Relieved by: Unrelieved (Comment) Gastrointestinal Additional Assessments: No Last BM Date: 06/28/21 Lew Scale Score: 14 Skin Integrity: Redness Dietary Orders (From admission, onward) Start Ordered 06/28/21 1217 Oral Nutrition Supplements Select Supplement: Ensure Pudding - Abby All Meals Question: Select Supplement: Answer: Ensure Pudding - Abby 06/28/21 1216 06/28/21 1215 Adult Diet Restricted; Dysphagia 1 (pureed); No Liquid Diet effective now Question Answer Comment ([facility]) Diet type Restricted Modified Consistency: Dysphagia 1 (pureed) Fluid Consistency: No Liquid 06/28/21 1216 Impression: Pt with encephalopathy, transferred from neuro floor. Pt with TBI with SAH and IVH. Pt currently noted as A&Ox0. Pt reports he is not sure if he ate breakfast this morning. Pt passed speech therapy for dysphagia 1 pureed diet with no liquids, pt ordered for ensure pudding to help meet nutritionneeds. Pt still has NG tube in place, is currently not being used. Consider tube feeding if pt canno t increase PO intake, however RN notified RD that pt pulled out his feeding tube. Team wanting to see how patient does with meds in applesauce and eating, may need to replace feeding tube tomorrow. Of note, speech therapy was unable to do full normal MBS today due to pt's mental status. Per TEXTILE MACHINE MAINTENANCE MECHANIC, this might be pt's new normal. Consider NG tube placement for now, but consider PEG tube if this will be meterman picture. Noted 1 healing wound documented on buttocks. Last documented BM 06/28. Wt Readings from Last 10 Encounters: 06/28/21 90 kg (198 lb 6.6 oz) 06/24/21 85.8 kg (189 lb 2.5 oz) 06/18/21 85.8 kg (189 lb 2.5 oz) 01/25/21 91.6 kg (202 lb) 07/16/20 87.1 kg (192 lb) 07/11/20 86.6 kg (190 lb 14.7 oz) 06/15/20 85.3 kg (188 lb) 02/22/20 88 kg (194 lb 0.1 oz) 01/04/20 78 kg (172 lb) 12/28/19 76.7 kg (169 lb 3.2 oz) NUTRITION DIAGNOSIS Nutrition Diagnosis 1: Inadequate oral intake Related to: Lack of interest Evidenced by: PO under 50% INTERVENTION Currently on dysphagia 1 pureed diet with no liquids. Encouraged PO intake. Continue ensure pudding TID to help meet nutrition needs. Monitor for future swallow eval and diet advancement. Calorie count: 06/28: B:2 bites, L: 250 calories, D: Not documented 06/29: B: refused, L: refused If feeding tube is replaced, recommend to provide some nutrition through feeding tube: If 100% tube feeding is needed, would recommend NG tube feeds of Jevity 1.5 @ 60 ml/hr which would provide 2160 calories (24 calories/kg), 91.8 gm PRO (1.2 gm/kg/IBW), 1094 ml free water. If night cycled tube feeds to meet part of nutrition needs, would recommend Ng tube feeds of Jevity1.5 @ 80 ml/hr x12 hours overnight ([id number]) to provide 1440 veronica (67% estimated nutrition needs) 61 g prot (65% protein needs), 730 ml free water. Minimum flush of 30 ml Q4 hours, adjust as needed. Monitor electrolytes replete PRN. Aspiration precautions. : GOAL(S) / MONITORING: Goals: Oral intake to meet 75% estimated nutritional needs by next assessment Interventions: Calorie count, Medical food supplement, Other (comment) (possibly restart TF) Monitoring and Evaluation: Appetite, Labs, PO intake, Stool patterns Angelica Juarez MS RD LD #[phone] * Elizabeth Persaud NP - 06/29/2021 9:41 AM CDT [facility] Geriatric Trauma Surgery Daily Progress Note Admit: 06/11/2021 6:55 PM Date: June 29, 2021 Length of Stay: 18 Attending: Darrel Wolf,* POD:* No surgery found * History: Jania Redman is a 71 y.o. 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 There was loss of consciousness. Of note, he had an unwitnessed fall the week prior. He was first taken to [facility] via EMS on 06/08 after sustaining fall with LOC at home. At [place] the initial head??CT??was??negative and he was admittedovernight 06/08-06/09 for further evaluation and treatment of possible syncopal episodes. There was reported involuntary movements and nystagmus for which he was loaded with Keppra and planned for EEG, the course of this is unclear. He had reportedly been started on CIWA protocol??with librium.??An MRIlater revealed SAH, IVH, small IPH for which he was ultimately transferred to [facility] as a neurosurgeryprimary patient the evening of 06/11. Overnight 06/11-06/12 the patient was not following commands and was somnolent, worsening following??Ativan administration for high CIWA score. [facility]the morning of 06/12??for closer observation. NSGY consulted Medicine servicefor assistance with syncope work-up and management of multiple comorbidities. The patient had ongoing somnolence and lethargy throughout the??morning,??and on??Medicine consult's evaluation, there was concern for??being at risk for airway compromise with his impaired level of consciousness. A nasaltrumpet was placed, and the patient was then transferred to 9400 ICU for closer monitoring. Interval History: 06/29: WBC 6.3 (10.2), Hgb 12.2 (11.7), Cr 0.98 (0.95), UOP 550 ml. 2 L IVF completed. Repeat orthostatic vitals pending, carotid duplex performed, MRI L hip pending, repeat modified barium swallow pending. PM&R consult placed. Wean O2. D/c Bactrim, Flagyl to be completed today. Will need head CT just prior to discharge per NSGY. 06/28: Transferred from the ICU to the floor in a stable condition. Vitals stable on admission. NG tube, not on any supplemental oxygen. Hard of hearing, difficulty answering questions. Per ICU signout, A&O x 1 at baseline. No active issues at the moment. Pain:controlled Nausea: No Flatus: No Bowel Movement: No Medications: Current Facility-Administered Medications: ??? acetaminophen (TYLENOL) tablet 650 mg, 650 mg, feeding tube, Q4H PRN, Cassie Trent NP, 650 mg at 06/18/21 0035 ??? albuterol 2.5 mg/0.5 mL nebulizer solution 1.25 mg, 1.25 mg, nebulization, Q6H PRN (RT), Jair Jay MD ??? docusate (COLACE) 10 mg/mL oral liquid 100 mg, 100 mg, feeding tube, Daily, Sada العلي NP, 100 mg at 06/29/21945 ??? heparin 5,000 unit/mL injection 5,000 Units, 5,000 Units, subcutaneous, Q8H MONET, Cassie Trent NP, 5,000 Units at 06/29/21 0526 ??? metoprolol tartrate (LOPRESSOR) immediate release tablet 50 mg, 50 mg, feeding tube, BID, Jair Jay MD, 50 mg at 06/29/21945 ??? metroNIDAZOLE (FLAGYL) tablet 500 mg, 500 mg, feeding tube, Q8H [facility], Tamiko Ray NP, 500mg at 06/29/21 0527 ??? miconazole (SECURA THICK) 2 % cream, , topical, BID, Andreia Ellis MD, Given at 06/29/21945 ??? qpwswuhf-ovj-xlosawb gluconate (CENTRUM) 0.6 mg iron/mL oral liquid 15 mL, 15 mL, feeding tube,Daily, Cassie Trent NP, 15 mL at 06/29/21 0945 ??? pantoprazole (PROTONIX) 4 mg/mL injection 40 mg, 40 mg, intravenous, Daily, Mily Cuevas NP, 40 mg at 06/29/21 0945 ??? pravastatin (PRAVACHOL) tablet 40 mg, 40 mg, feeding tube, Daily, Cassie Trent NP, 40mg at 06/29/21 0946 ??? ramelteon (ROZEREM) tablet 8 mg, 8 mg, feeding tube, Nightly, Tamiko Ray, GARIMA, 8 mg at 06/28/21 1741 ??? senna 1.76 mg/mL syrup 8.8 mg, 8.8 mg, feeding tube, BID, Sada العلي NP, 8.8 mg at06/29/21 0945 ??? sodium chloride 0.9% flush 0.5-20 mL, 0.5-20 mL, intra-catheter, Q8H MONET, Belinda Shaffer MD PhD, 10 mL at 06/29/21 0528 ??? sodium chloride 0.9% flush 0.5-20 mL, 0.5-20 mL, intra-catheter, PRN, Belinda Shaffer MD PhD, 10 mL at 06/25/21 0745 ??? terazosin (HYTRIN) capsule 10 mg, 10 mg, feeding tube, Nightly, Ciarra Jama NP, 10 mg at 06/28/212126 ??? thiamine (VITAMIN B1) tablet 100 mg, 100 mg, feeding tube, Daily, Jair Jay MD, 100 mg at 06/29/21 0946 ??? traZODone (DESYREL) tablet 100 mg, 100 mg, feeding tube, Nightly, Ciarra Jama NP,100 mg at 06/28/212126 Diet: Dietary Orders (From admission, onward) Start Ordered 06/28/21 1217 Oral Nutrition Supplements Select Supplement: Ensure Pudding - Abby All Meals Question: Select Supplement: Answer: Ensure Pudding - Abby 06/28/21 1216 06/28/21 1215 Adult Diet Restricted; Dysphagia 1 (pureed); No Liquid Diet effective now Question Answer Comment ([facility]) Diet type Restricted Modified Consistency: Dysphagia 1 (pureed) Fluid Consistency: No Liquid 06/28/21 1216 Activity: As tolerated Is&Os: I/O last 2 completed shifts: In: 2433.5 [I.V.:2218.5; NG/GT:205; IV Piggyback:10] Out: 550 [Urine:550] I/O this shift: In: - Out: 575 [Urine:575] Physical Exam: 24hr Min/Max: Temp Min: 36.1 ??C (96.98 ??F) Max: 36.5 ??C (97.7 ??F) Pulse Min: 71 Max: 102 BP Min: 93/66 Max: 139/90 Resp Min: 16 Max: 22 SpO2 Min: 91 % Max: 100 % Vitals: 06/29/21 1132 BP: 105/69 Pulse: 82 Resp: 20 Temp: 36.2 ??C (97.2 ??F) SpO2: 95% Constitutional: well developed, well nourished, cooperative and no apparent distress Head: normocephalic, without obvious abnormality, atraumatic Neurologic: oriented to person cranial Nerves II-XII intact sensation intact all extremities demonstrated purposeful movement in all 4 extremities Eyes: PERRL, pupils: Bilateral: reactive and size 2 mm, conjunctiva normal, left ptosis HENT: lips, mucosa, and tongue normal Neck: supple, symmetrical, trachea midline Chest: normal appearance, no masses or tenderness Respiratory: normal chest rise and fall, diminished breath sounds bilateral and face tent at 10 L 40 % Cardiovascular: regular rate Gastrointestinal: non-distended and soft non-tender Musculoskeletal: extremities normal, warm and well-perfused and no edema Pulses: radial: bilateral normal and PT: bilateral normal Skin: skin color, texture, turgor normal. No rashes or lesions Drains: condom cath with pale yellow efflux Labs/Imaging: Recent Results (from the past 72 hour(s)) Basic metabolic panel Collection Time: 06/26/21 11:47 PM Result Value Ref Range Sodium 135 135 - 145 mmol/L Potassium, pl 4.7 3.3 - 4.9 mmol/L Chloride 99 97 - 110 mmol/L CO2 27 22 - 32 mmol/L Anion gap 9 2 - 15 mmol/L BUN 18 8 - 25 mg/dL Creatinine 0.92 0.80 - 1.30 mg/dL Glucose 102 70 - 199 mg/dL Calcium 9.4 8.5 - 10.3 mg/dL CBC without differential Collection Time: 06/26/21 11:47 PM Result Value Ref Range WBC 17.4 (H) 3.8 - 9.9 K/cumm Hgb 12.4 (L) 13.0 - 17.5 g/dL Hct 35.4 (L) 38.9 - 50.3 % Plt 227 150 - 400 K/cumm MPV 10.4 9.1 - 12.3 fL RBC 3.59 (L) 4.30 - 5.80 M/cumm MCV 98.6 (H) 81.3 - 96.4 fL MCH 34.5 (H) 27.1 - 33.3 pg MCHC 35.0 32.3 - 35.7 g/dL RDW CV 12.2 11.1 - 14.9 % RDW SD 44.0 35.7 - 48.1 fL NRBC abs 0.00 0.00 - 0.01 K/cumm Magnesium Collection Time: 06/26/21 11:47 PM Result Value Ref Range Magnesium 1.8 1.4 - 2.5 mg/dL eGFR Collection Time: 06/26/21 11:47 PM Result Value Ref Range eGFR 89 (L) 90 - 130 mL/min/1.73 m2 Basic metabolic panel Collection Time: 06/27/21 9:45 PM Result Value Ref Range Sodium 133 (L) 135 - 145 mmol/L Potassium, pl 4.7 3.3 - 4.9 mmol/L Chloride 99 97 - 110 mmol/L CO2 27 22 - 32 mmol/L Anion gap 7 2 - 15 mmol/L BUN 20 8 - 25 mg/dL Creatinine 0.95 0.80 - 1.30 mg/dL Glucose 107 70 - 199 mg/dL Calcium 9.4 8.5 - 10.3 mg/dL CBC without differential Collection Time: 06/27/21 9:45 PM Result Value Ref Range WBC 10.2 (H) 3.8 - 9.9 K/cumm Hgb 11.7 (L) 13.0 - 17.5 g/dL Hct 33.7 (L) 38.9 - 50.3 % Plt 240 150 - 400 K/cumm MPV 10.7 9.1 - 12.3 fL RBC 3.41 (L) 4.30 - 5.80 M/cumm MCV 98.8 (H) 81.3 - 96.4 fL MCH 34.3 (H) 27.1 - 33.3 pg MCHC 34.7 32.3 - 35.7 g/dL RDW CV 12.6 11.1 - 14.9 % RDW SD 45.4 35.7 - 48.1 fL NRBC abs 0.00 0.00 - 0.01 K/cumm Magnesium Collection Time: 06/27/21 9:45 PM Result Value Ref Range Magnesium 2.2 1.4 - 2.5 mg/dL eGFR Collection Time: 06/27/21 9:45 PM Result Value Ref Range eGFR 86 (L) 90 - 130 mL/min/1.73 m2 Basic metabolic panel Collection Time: 06/28/21 10:24 PM Result Value Ref Range Sodium 137 135 - 145 mmol/L Potassium, pl 4.4 3.3 - 4.9 mmol/L Chloride 102 97 - 110 mmol/L CO2 26 22 - 32 mmol/L Anion gap 9 2 - 15 mmol/L BUN 18 8 - 25 mg/dL Creatinine 0.98 0.80 - 1.30 mg/dL Glucose 90 70 - 199 mg/dL Calcium 9.1 8.5 - 10.3 mg/dL CBC without differential Collection Time: 06/28/21 10:24 PM Result Value Ref Range WBC 6.3 3.8 - 9.9 K/cumm Hgb 12.2 (L) 13.0 - 17.5 g/dL Hct 34.5 (L) 38.9 - 50.3 % Plt 217 150 - 400 K/cumm MPV 10.4 9.1 - 12.3 fL RBC 3.48 (L) 4.30 - 5.80 M/cumm MCV 99.1 (H) 81.3 - 96.4 fL MCH 35.1 (H) 27.1 - 33.3 pg MCHC 35.4 32.3 - 35.7 g/dL RDW CV 12.7 11.1 - 14.9 % RDW SD 45.7 35.7 - 48.1 fL NRBC abs 0.00 0.00 - 0.01 K/cumm Magnesium Collection Time: 06/28/21 10:24 PM Result Value Ref Range Magnesium 2.0 1.4 - 2.5 mg/dL eGFR Collection Time: 06/28/21 10:24 PM Result Value Ref Range eGFR 83 (L) 90 - 130 mL/min/1.73 m2 No results found. Assessment and Plan: Active Problems: Hypercholesterolemia Hypertension Atrial fibrillation (CMS/HCC) (HCC) Chronic systolic heart failure (CMS/HCC) ([facility]) TBI (traumatic brain injury) (CMS/HCC) (HCC) SAH (subarachnoid hemorrhage) (CMS/HCC) ([facility]) Encephalopathy Acute delirium Scrotal abscess Closed fracture of trochanter of left femur (CMS/HCC) ([facility]) Dysphagia Orthostatic hypotension Acute respiratory failure ([facility]) #Traumatic brain injury with SAH and intraventricular hemorrhage - Admitted to [facility] - Brain injury consult - Neuro checks q4h - PT, OT, [employer] consults - PM&R consult - Will need exit head CT prior to discharge per NSGY ?? #Encephalopathy - Etiology seems to be multifactorial with alcohol withdrawal (received librium at OSH), TBI, hospital admission/delirium, possible Wernicke's - s/p 9 days folic acid, 3 days 500 mg IV q8h, thiamine followed by 250 mg x5 days - MVI daily and thiamine 100 mg daily indefinitely ?? #Acute delirium - Sleep hygiene - Delirium precautions - Ramelteon and trazodone 100mg QHS ?? #COPD #Acute on chronic respiratory failure - resolving - No home medications - Extubated 06/18 - On high humidity face tent until 06/25 -> room air - Patient arrived to floor on face tent - Wean O2 for SpO2 goal 88-92% - PRN albuterol - Incentive spirometry, acapella ?? #Chronic systolic heart failure -per Cardiology note from 01/25/21: asymptomatic mild LV dysfunction, suspect tachycardia mediated - Previously EF 45-50% (2020), now EF 70-75% as of 06/13 - Continue metoprolol 50 mg BID - Holding home lisinopril ?? #Atrial fibrillation with RVR - s/p amio gtt 06/13-06/14; will need outpatient f/u with Panel[employer] Operator - Continue metoprolol 50 mg BID for rate control - Goal HR <120 - Telemetry ?? #Syncope/Orthostatic hypotension - + orthostatic symptoms as outpatient per and + orthostatics at OSH - TTE unrevealing - Orthostatics positive 06/22 - Received 2 L fluid on 06/28-06/29 - Repeat orthostatic vitals pending - Carotid duplex with less than 50% stenosis bilaterally ?? #Dysphagia due to TBI - On dysphagia 1 diet with NO liquids - Continue calorie count x3 days to ensure adequate PO (initiated on 06/27, continue through 06/30), Nutrition following - NG tube placed for meds - Repeat mBS pending, remove NG prior to test - 2 L IVF completed 06/29 - FWF 60 ml five times daily while not in-taking liquids ?? #L trochanteric fracture - Ortho consult - WBAT LLE - Failed trial mobilization with PT - MRI of left hip pending ?? #Bacteroides fragilis scrotal abscess and cellulitis - US scrotum (06/17) with left hydrocele and cellulitis - CT pelvis w contrast (06/17) positive for small left scrotal hydrocele, negative for soft tissue gas, and positive for non-displaced trochanteric fracture - Urology consulted:10 day course abx and should heal on its own, call if infection appears worse or changes - Clindamycin discontinued 06/20 - Continue flagyl and bactrim through 06/29 for a total of 12 days since susceptibilities are not back yet - f/u susceptibilities: susceptible to flagyl - Bactrim d/c'd 06/29, Flagyl to complete 06/29 ?? #HTN - Home lisinopril 40 mg daily on hold, restart as able - Home lasix 40 mg daily on hold, restart as able - Continue metoprolol - SBP goal <160 #HLD - Continue pravastatin 40 mg daily ?? #DVT ppx: heparin subQ #Dispo: SNF vs Rehab Mauro Persaud NP Cosigned by Rush Meneses MD at 06/29/2021 12:15 PM CDT * Christine Oliveira - 06/29/2021 9:30 AM CDT Occupational Therapy Occupational Therapy Initial Assessment NOTE:This is a summary note for the troy assessments completed during the evaluation session. For full details, review chart review for all flowsheets documented on by this Occupational Therapist on this date. Vital signs documented in vital signs flowsheet. Assessment Assessment Problem List: Decreased cognition, Decreased endurance, Decreased balance, Decreased functional mobility, Decreased ADL independence, Decreased IADL independence, Decreased upper extremity strength, Visual deficit Barrier Comments: Fall risk Plan Plan Plan: Plan of care initiated, If this is the last note, consider this the discharge summary OT Recommendation and Plan Recommendation/Plan OT Recommendation: Inpatient Rehab Facility OT Recommendation/Plan Comments: Pt would benefit from continued skilled OT services to improve UE strength, balance, functional mobility, ADL and IADL independence. OT Frequency: 5-7x/wk Comments: Pt followed one step commands with repetition on this date. OTS completed B UE PROM x10 reps at all joints in preparation for ADL tasks. Treatment/Interventions: ADL/IADL retraining, Balance Training, Bed mobility, Endurance training, Functional activity, Functional mobility training, Functional transfer training, Strengthening, Therapeutic activity, Therapeutic exercise, Transfer training OT Equipment Recommended: Shower chair OT - Next Appointment: 06/30/21 OT Evaluation Complete: Yes General Information General Chart Reviewed: Yes Session Type: Re-Evaluation OT Received On: 06/29/21 Subjective: Agreeable to Therapy Family/Caregiver Present: No Occupational Therapy-Patient Goal: Pt did not state a specific OT goal but is agreeable to the discussed goals Precautions Precautions Precautions: Aspiration, Fall risk, Seizure Weight Bearing Restrictions: Yes LLE Weight Bearing: As tolerated Precaution Comments: OTS wore surgical mask, isolation gown, and gloves Home Living Home Living Additional Comments: Pt unable to provide home living information on this date. Prior Function Prior Function Prior Function Comments: Pt unable to provide PLOF information on this date. Activities of Daily Living Grooming Grooming: Where assessed: Supine, bed Grooming: Level of assistance: Maximum Assist (Max A for task. Total A for balance.) Grooming: Assistance with: Increased time to complete, Reaching all areas of head/face, Safety, Sequencing LE Dressing LE Dressing: Where assessed: Supine, bed LE Dressing: Level of assistance: Dependent (Dep for task. Total A for balance) LE Dressing: Assistance with: Verbal cueing, Supervision/safety, Increased time to complete, Don/doff R sock, Don/doff L sock, Thread RLE into pants, Thread LLE into pants, Thread RLE into underwear,Thread LLE into underwear, Pull up over hips Toileting Toileting: Where assessed: Supine, bed Toileting: Level of assistance: Dependent (Dep for task. Total A for balance.) Toileting: Assistance with: Increased time to complete, Use of bedpan/urinal setup, Clothing management up, Clothing management down, Perineal hygiene, Anterior, Posterior Pain Pain Assessment Pain Assessment: No/denies pain Cognition Cognition Arousal/Alertness: Delayed responses to stimuli Attention Span: Attends with cues to redirect Current communication: Appears Intact Orientation : Oriented x 0 Following Commands: Follows one step commands with repetition Safety Judgment: Unable to assess Awareness of Errors: Unable to assess Insight: Decreased awareness of deficits Problem Solving: Unable to assess Compliance/Behavior: Easy to engage Perseveration: Not present 6 Clicks Daily Activity - 6 Clicks Putting on and taking off regular lower body clothing: Total Bathing: A lot Toileting: Total Putting on and taking off upper body clothing: A Lot Personal Grooming: A lot Eating Meals: Total Total Score (range 6-24): 9 Score Interpretation: 9 Balance Static Sitting Balance Static Sitting-Balance Support: Bilateral upper extremity supported, Feet supported (on bed in longsit) Static Sitting-Sitting Surface: Bed Static Sitting-Level of Assistance: Maximum assistance (x2) Static Sitting-Comment/# of Minutes: For elevating trunk and maintaining balance. Transfers Transfers Transfer: No (2/2 pt was taken for scan during session) Bed Mobility Bed Mobility Bed Mobility: Yes Bed Mobility 1 Bed Mobility From 1: Supine Bed Mobility Type 1: To and from Bed Mobility to 1: Rolling right, Rolling left Level of Assistance 1: Maximum Assist (x2) Bed Mobility Comments 1: For force production and verbal cues for technique. Bed Mobility 2 Bed Mobility From 2: Supine Bed Mobility Type 2: To and from Bed Mobility to 2: Long sit Level of Assistance 2: Maximum Assist (x2) Bed Mobility Comments 2: For force production and verbal cues for technique. RUE Assessment RUE Assessment RUE Assessment: Exceptions to WFL RUE AROM (degrees) RUE Overall AROM: Other (Comment) (Pt unable to complete full AROM at all joints. OTS able to assist with PROM. Pt able to complete PROM at all joints.) LUE Assessment LUE Assessment LUE Assessment: Exceptions to WFL LUE AROM (degrees) LUE Overall AROM: Other (Comment) (Pt unable to complete full AROM at all joints. OTS able to assist with PROM. Pt able to complete PROM at all joints.) Other Comments Other Comments Comments: Pt followed one step commands with repetition on this date. OTS completed B UE PROM x10 reps at all joints in preparation for ADL tasks. OT Goals Multi-Disciplinary Problems (from Occupational Therapy) Active Problems Problem: Dressings Lower Extremities Start Date: 06/29/21 Goal Start Date Expected End Date End Date STG - Patient to complete lower body dressing 06/29/21 07/06/21 -- Goal Details: With Mod A Problem: Grooming Start Date: 06/29/21 Goal Start Date Expected End Date End Date STG - Patient will complete grooming 06/29/21 07/06/21 -- Goal Details: In unsupported sitting with Mod A Problem: Toileting Start Date: 06/29/21 Goal Start Date Expected End Date End Date STG - Patient will complete toileting tasks with 06/29/21 07/06/21 -- Goal Details: With Mod A Problem: Transfers Start Date: 06/29/21 Goal Start Date Expected End Date End Date STG - Patient will perform toilet transfer 06/29/21 07/06/21 -- Goal Details: To BSC with Mod A Problem: OT Misc Start Date: 06/29/21 Goal Start Date Expected End Date End Date OT STG - Misc 1 06/29/21 07/06/21 -- Goal Details: Patient will maintain static and dynamic sitting balance with mod A in preparation for ADL tasks. Goal Start Date Expected End Date End Date OT STG - Misc 2 06/29/21 07/06/21 -- Goal Details: Patient will follow one step commands with no verbal cues For questions, please review the treatment team and contact the occupational therapist currently assigned to this patient. If an occupational therapist is not assigned to this patient, please call [phone]. Christine Oliveira, VIJI reviewed by Vane Baker 06/29/21 Cosigned by Vane Baker OT at 06/29/2021 2:39 PM CDT * Bess Mcguire MD - 06/28/2021 4:27 PM CDT [facility] Geriatric Trauma Surgery Daily Progress Note Admit: 06/11/2021 6:55 PM Date: June 28, 2021 Length of Stay: 17 Attending: Seth Kiser MD POD:* No surgery found * History: Jania Redman is a 71 y.o. 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 At [place] the initial head??CT??was??negative and he was admitted overnight 06/08-06/09 for further evaluation and treatment of possible syncopal episodes. There was reported involuntary movements and nystagmus for which he was loaded with Keppra and planned for EEG, the course of this is unclear. He had reportedly been started on CIWA protocol??with librium.??An MRI later revealed SAH, IVH, small IPH for which he was ultimately transferred to [facility] as a neurosurgery primary patient the evening of 06/11. Overnight 06/11-06/12 not following commands and somnolent, worse following??Ativan administration for high CIWA score. He was transferred from floor to stepdown unit??themorning of 06/12??for closer observation and NSGY consulted medicine service for assistance with syncope work-up and management of multiple comorbidities. Ongoing somnolence/lethargy throughout the??morning??and on??medicine consult eval concern for??being at risk for airway compromise with his impaired level of consciousness. A nasal trumpet was placed, POCT??ABG 7.43/24 and he was then transferred to [facility] [place] ICU for closer monitoring.?? [facility] records received and reviewed. Summarized as follows (see paper chart for records): ?? ICU Course: Significant for ongoing encephalopathy of unclear etiology (likely multifactorial with cEEG negative for seizure and MRI negative for stroke), a- fib RVR requiring increase in home metoprolol dose and amiodarone load, oliguria ultimately responsive to lasix, and dysphagia requiring NG placement. Despite his traumatic Brain Injury with SAH and IVH, he has sustained his neurologic exam. ?? On 06/17, scrotal drainage sent for cultures. US demonstrated left hydrocele. CT pelvis positive forleft hydrocele, left scrotal cellulitis and left non- displaced trochanteric fracture. Currently on 12 day course of antibiotics with bactrim and flaygyl that will end on PM of 06/29 (susceptibilities sent to [place]).??Extubated on 06/18 and placed on high humidity face tent to help mobilize secretions.Ortho consulted for left trochanteric fracture but no plan for surgery. Postivive orthostatics noted on 06/22 (unable to obtain standing BP but positive from lying to sitting). Due to concern for syncope, decreased terazosin dose to 10 mg daily. Patient has been unable to weight bear on LLE with PT,MRI L hip is pending to further assess for inury. Passed MBS on 06/26 for dysphagia diet (no liquids); tube feeds discontinued. Now off HHFT and on room air and tolerating well with CPT and cough assist BID. For his ICU delirium, has responded well to ramelteon 8mg nightly at 1800 to establish a normal sleep/wake cycle and trazodone 100mg qHs. Interval History: Transferred from the ICU to the floor in a stable condition. Vitals stable on admission. NG tube, not on any supplemental oxygen. Hard of hearing, difficulty answering questions. Per ICU signout, A&O x 1 at baseline. No active issues at the moment. Pain:controlled Nausea: No Flatus: No Bowel Movement: Yes Medications: Scheduled Meds:docusate, 100 mg, feeding tube, Daily heparin, 5,000 Units, subcutaneous, Q8H MONET metoprolol tartrate, 50 mg, feeding tube, BID metroNIDAZOLE, 500 mg, feeding tube, Q8H MONET miconazole, , topical, BID gofhrxan-vgs-akrghzk gluconate, 15 mL, feeding tube, Daily pantoprazole, 40 mg, intravenous, Daily pravastatin, 40 mg, feeding tube, Daily ramelteon, 8 mg, feeding tube, Nightly senna, 8.8 mg, feeding tube, BID sodium chloride 0.9%, 0.5-20 mL, intra-catheter, Q8H MONET sodium chloride 0.9%, 0.5-20 mL, intra-catheter, Q8H MONET sulfamethoxazole-trimethoprim, 320 mg of trimethoprim, feeding tube, BID terazosin, 10 mg, feeding tube, Nightly thiamine, 100 mg, feeding tube, Daily traZODone, 100 mg, feeding tube, Nightly Continuous Infusions:sodium chloride 0.9%, 75 mL/hr, Last Rate: 75 mL/hr (06/28/21 0754) PRN Meds:.??? acetaminophen ??? albuterol ??? bisacodyL ??? [DISCONTINUED] ondansetron ODT OR ondansetron ??? sodium chloride 0.9% ??? sodium chloride 0.9% Diet: Dietary Orders (From admission, onward) Start Ordered 06/28/21 1217 Oral Nutrition Supplements Select Supplement: Ensure Pudding - Abby All Meals Question: Select Supplement: Answer: Ensure Pudding - Abby 06/28/21 1216 06/28/21 1215 Adult Diet Restricted; Dysphagia 1 (pureed); No Liquid Diet effective now Question Answer Comment ([facility]) Diet type Restricted Modified Consistency: Dysphagia 1 (pureed) Fluid Consistency: No Liquid 06/28/21 1216 Activity: Bed Rest In/Out: I/O last 2 completed shifts: In: 560 [NG/GT:550; IV Piggyback:10] Out: 600 [Urine:600] I/O this shift: In: 782.5 [I.V.:607.5; NG/GT:165; IV Piggyback:10] Out: 550 [Urine:550] Physical Exam: 24hr Min/Max: Temp Min: 36 ??C (96.8 ??F) Max: 36.9 ??C (98.4 ??F) Pulse Min: 74 Max: 137 BP Min: 93/66 Max: 126/92 Resp Min: 13 Max: 23 SpO2 Min: 92 % Max: 98 % Vitals: 06/28/21 1600 BP: 107/70 Pulse: 79 Resp: 18 Temp: 36.1 ??C (96.98 ??F) SpO2: 98% Constitutional: no apparent distress and appears stated age Head: normocephalic, without obvious abnormality Neurologic: lethargy A&O times 1, L ptosis, R nasolabial flattening at rest Eyes: PERRL, EOMs intact, left ptosis HENT: external aural meatus intact with no visable drainage from the ear Neck: supple, symmetrical, trachea midline Chest: normal appearance, no masses or tenderness Respiratory: coarse bilateral and crackles bilateral Cardiovascular: regular rate and rhythm, S1, S2 normal, no murmur, click, rub or gallop Gastrointestinal: soft, non-tender; bowel sounds present; no masses, no organomegaly Musculoskeletal: extremities normal, warm and well-perfused Pulses: DP: bilateral normal and PT: bilateral normal Skin: skin color, texture, turgor normal. No rashes or lesions Assessment and Plan: Active Problems: No Active Problems: There are no active problems currently on the Problem List. Please update the Problem List and refresh. 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 #Encephalopathy - Etiology seems to be multifactorial with alcohol withdrawal (received librium at OSH), TBI, hospital admission/delirium, possible Wernicke's - s/p 9 days folic acid, 3 days 500 mg IV q8h, thiamine followed by 250 mg x5 days - continue MVI daily and thiamine 100 mg daily indefinitely ?? #Acute delirium - sleep hygiene ordered - Ramelteon and trazodone 100mg QHS #COPD/Acute on chronic respiratory failure - extubated 06/18, remained on high humidity face tent until 06/25 and now stable on RA - SPO2 goal 88-92% - PRN albuterol #Chronic systolic heart failure per Cardiology note from 01/25/21: asymptomatic mild LV dysfunction, suspect tachycardia mediated -- previously EF 45-50% (2020), now EF 70-75% as of 06/13 -- continue metoprolol as above -- holding home lisinopril #Atrial fibrillation with RVR - s/p amio gtt 06/13-06/14; will need outpatient f/u with Panelboard Operator - continue metoprolol 50 mg BID for rate control - monitor on tele, goal HR<120 #Syncope/Orthostatic hypotension - + orthostatic symptoms as outpatient per and + orthostatics at OSH - TTE unrevealing - orthostatics positive 06/22 - continue to monitor #Dysphagia due to TBI - On dysphagia 1 diet with NO liquids -- continue calorie count x3 days to ensure adequate PO (initiated on 06/27, continue through 06/30),Nutrition following - NG tube placed for meds #L Trochanteric fracture - Ortho consulted; WBAT LLE and no need for MRI, can trial mobilization with PT - obtain MRI left hip to further assess injury #Bacteroides Fragilis Scrotal Abscess and Cellulitis - US scrotum (06/17) with left hydrocele and cellulitis - CT pelvis w contrast (06/17) positive for small left scrotal hydrocele, negative for soft tissue gas, and positive for non-displaced trochanteric fracture - Urology consulted:10 day course abx and should heal on its own, call if infection appears worse or changes - clindamycin discontinued 06/20 - continue flagyl and bactrim through 06/29 for a total of 12 days since susceptibilities are not back yet - f/u susceptibilities (sent to [place]) #HTN - holding home lisinopril 40 mg daily for now -- SBP <160 DVT: heparin subQ Dispo: SNF vs Rehab Bess Mcguire MD Cosigned by Darrel Wolf MD at 06/29/2021 2:52 PM CDT Associated attestation - Darrel Wolf MD - 06/29/2021 2:52 PM CDT I have personally seen and examined this patient on the date of service as documented on the Resident note and have reviewed and confirmed the history, physical exam, laboratory,radiographic data, assessment and plan as documented by the resident. Darrel Wolf MD Section of Acute and Critical Care Surgery * Lindy Landis PT - 06/28/2021 1:08 PM CDT Physical Therapy Physical Therapy Progress Note NOTE: This is a summary note of the troy components of the treatment session. For full details, review chart for all flowsheets documented on by this physical therapy clinician on this date. Vital signs documented in vital signs flowsheet. Care plan progress documented in Care Plan Activity. For questions, please review the treatment team and contact the PT or WELL CLEANER currently assigned to this patient. If a physical therapy clinician is not assigned to this patient, please call [phone]. Multi-Disciplinary Problems (from Physical Therapy) Active Problems Problem: Mobility Start Date: 06/13/21 Goal Start Date Expected End Date End Date STG - Patient will ambulate 06/13/21 07/11/21 -- Goal Details: 100 ft wthi LRAD, [place] Problem: Transfers Start Date: 06/13/21 Goal Start Date Expected End Date End Date STG - Patient to transfer to and from sit to supine 06/13/21 06/27/21 -- Goal Details: Maritza Goal Start Date Expected End Date End Date STG - Patient will transfer sit to and from stand 06/13/21 06/27/21 -- Goal Details: Maritza with LRAD Problem: Mobility Start Date: 06/13/21 Goal Start Date Expected End Date End Date LTG - Patient will demonstrate functional mobility with the following level of assist: 06/13/21 06/27/21 -- Goal Details: Cherelle with LRAD * Mario Chavarria MD - 06/28/2021 12:34 PM CDT Neurocritical Care Attending Progress Note Admission Diagnosis: Acute Traumatic Brain Injury with Subarachnoid Hemorrhage and Intraventricular Hemorrhage, Acute Encephalopathy Overnight Events: He continues to do well from a respiratory status. We stopped his tube feeds yesterday to encourageoral intake via his dysphagia 1 diet with no liquids. He did not eat much breakfast but did eat 75%of his lunch. He is on a calorie count. No other acute events. He denied chest pain and shortness of breath today. He denied abdominal pain today. Current Medication List: I reviewed the patient's current active medication list and discussed it with our clinical pharmacist. Vital Signs: Temp: [36 ??C (96.8 ??F)-36.9 ??C (98.4 ??F)] 36.1 ??C (97 ??F) Pulse: [74-137] 74 BP: (93-126)/(62-113) 93/66 Resp: [13-23] 17 SpO2: [92 %-100 %] 94 % FiO2 (%): [30 %-40 %] 40 % Labs/Microbiology: All laboratory results over the past 24 hours have been personally reviewed within the EMR. Imaging: All imaging over the past 24 hours has been personally reviewed in the EMR. Exam: General: He is sitting up in his bedside chair and is awake. Breathing comfortably on room air. Neuro: He opened eyes spontaneously. He regarded and sustained attention for 1-2 minutes. He remains very hard of hearing (does better with questions on his left side). He was oriented to self only. [place], the month was December and the year was 1971. He had moderate dysarthria. He had midline gaze. His pupils were reactive to light bilaterally (3->2mm). He had full ex traocular movements. His eyebrow raise was symmetric. He had L eyelid ptosis. He had decreased nasolabial fold on the right but equal velocity and endpoint of smile bilaterally. He had midline tongueprotrusion. He had slight RUE drift, no drift in the LUE and moved his BLE in plane with brief antigravity. Formal testing with 5/5 LUE proximally and distally and 4+/5 RUE proximally and distally. HEENT: sclera anicteric, conjunctiva pink, mucous membranes moist CV: normal S1 and S2, irregular rhythm and normal rate, no murmurs Pulm: good air movement bilaterally, slightly less coarse breath sounds throughout, no wheezing, nocrackles Abdomen: soft, non-distended, non-tender, normoactive bowel sounds Ext: 2+ pulses with trace pitting edema in the BLE. Plan: 1. Traumatic Brain Injury with SAH and Intraventricular Hemorrhage He is sustaining his neurologic exam. Will continue supportive care with PT, OT and COTTAGE CHEESE MAKER. Neuro checks are q4 hours with sleep hygiene. 2. Alcohol Dependence He has completed a high dose thiamine therapy course and seven days of folic acid therapy. We will continue MVI daily and thiamine 100mg daily indefinitely. 3. ICU Delirium He continue sleeping well. He will remain on ramelteon 8mg nightly at 1800 to establish a normal sleep/wake cycle and trazodone 100mg qHS to aid with sleep consolidation as well. We are providing delirium precautions with frequent re-orientation. 4. Atrial Fibrillation His HR was 80 to 100 bpm yesterday with one spike to 140 bpm briefly. We will continue metoprolol tartrate 50mg BID. Neurosurgery is ok resuming his apixaban one month post traumatic injury (07/13 at the earliest) for secondary stroke prevention. 5. Heart Failure with reduced Ejection Fraction His LVEF is improved from his baseline of 45-50% up to 70 to 75%. He is on a beta edmund as above while maintaining clinical euvolemia. We are providing furosemide as needed if he appears volume overloaded. 6. Syncope with Orthostatic Hypotension Still need to re-assess vitals once he is able to stand consistently (his lying to seated vitals are not orthostatic currently) 7. Hypertension His SBP ranged 90 to 120 mmHg yesetreday. Will continue his metoprolol 50mg BID and terasozin 10mg daily. 8. Hyperlipidemia Will continue his pravastatin 40mg daily. 9. Anemia, Macrocytic His hemoglobin was 11.7 g/dL today. Will continue to maintain Hgb > 7.0 g/dL. 10. At Risk for Altered Respiratory Function His respiratory status is doing better each day. Will continue cough assist with CPT BID. He is mobilizing out of bed to chair daily. He has a high humidity face tent as needed to keep his oropharynxmoist. 11. COPD without exacerbation Will maintain spo2 goal 88 to 92%. He has albuterol and ipratroprium available as needed for acute shortness of breath or wheezing. 12. BPH Will continue terazosin 10mg qHS. He is voiding post coombs removal on 06/25. 13. Hyponatremia Decrease in sodium from 135 to 133 mEq/L. Likely related to stopping his tube feeds and NS flushes.Will start NS IVF at 75 mL/hr x 2 liters. Will follow BMP daily. 14. Dysphagia due to TBI He passed for a dysphagia 1 diet with NO liquids. He did better with lunch today. Will continue hiscalorie count for three days. His NGT in place for the time being in case he does not start to eat more. His last bowel movement was today post suppository. Will continue his current bowel regimen. 15. GERD Will continue his home PPI. 16. Left Trochanteric Fracture Orthopedic surgery evaluated and did not think surgical intervention was needed at this time. Will supportive care with PT and OT with weight bearing as tolerated per their recommendations. He has not been able to tolerate standing. His MRI of the R hip is still pending. 17. Bacteroides Fragilis Scrotal Abscess and Cellulitis Urology evaluated and reviewed his CT imaging. They recommended a 10 day course of antibiotics. He is on day 11 his treatment course (but day 9 of bactrim and metronidazole). As the sensitivities have not returned we will simply continue to 06/29. His WBC is 10.2k today (spurious 17k yesterday). He remains afebrile. Will monitor daily CBC and culture if he has a fever. 18. Prophylaxis DVT: SCD, SQ heparin 5k q8 hours GI: home PPI Pulm: mobilize, cough assist and CPT BID 19. Lines NGT, PIV x2, external male urinary collection device. 20. Disposition He is awaiting a lubna-trauma floor bed. He will be lubna-trauma primary upon transfer out of the ICU(currently is neurosurgery primary). ??? I personally evaluated and examined the patient on 06/28/2021 at 12:34 PM ??? I discussed the patient's treatment plan with neurosurgery, respiratory therapy, his bedside nurse and the patient. A member of our team will update his family post rounds. ??? I spent 36 minutes in full attendance of the patient's care. Greater than 50% of this time was spent in counseling the patient and coordinating the plan of care. Mario Chavarria MD Neurocritical Care Attending * Tamiko Ray, TEXTILE MACHINE MAINTENANCE MECHANIC - 06/28/2021 7:15 AM CDT Neuro Critical Care Progress Note Dx: TBI with trace tSAH and IVH, Encephalopathy HPI: 71M HTN/HL, a-fib on Eliquis, HFrEF (45-50% EF 2020), COPD not on home O2, legally blind, and hearing loss admitted with trace tSAH and IVH following a fall. Admitted OSH with altered LOC. Initial CT neg but subsequent MRI with tr SAH/IVH. Tx to [facility] NSGY service 06/11 where has remained encephalopathic. Medicine consulted for encephalopathy and felt airway was threatened, hence transfer to ICU06/12. Interval Events: -- remains stable on RA, no suctioning requirements -- discontinued tube feeds and continued on dysphagia 1 diet with NO liquids; started on calorie count to ensure adequate PO intake -- MRI L hip is pending -- awaiting transfer to Geriatric Trauma floor Vitals Temp Min: 36 ??C (96.8 ??F) Max: 36.9 ??C (98.4 ??F) Pulse Min: 78 Max: 137 NIBP BP Min: 91/78 Max: 126/92 MAP (mmHg) Av.5 Min: 69 Max: 119 A-line No data recorded I/O: Intake/Output Summary (Last 24 hours) at 06/28/2021 0717 Last data filed at 06/28/2021 0610 Gross per 24 hour Intake 500 ml Output 600 ml Net -100 ml UOP: 600 mL (compared to 1,325 mL the day prior) LABS Recent Labs Lab Units 06/27/21 2145 06/26/21 2347 06/25/21 1956 06/25/21 0200 06/24/21 1944 SODIUM mmol/L 133* 135 135 < > 133* POTASSIUM PLASMA mmol/L 4.7 4.7 4.9 < > 4.8 CHLORIDE mmol/L 99 99 100 < > 99 CO2 mmol/L 27 27 29 < > 27 ANIONGAP mmol/L 7 9 6 < > 7 GLUCOSE mg/dL 107 102 109 < > 123 BUN SERUM mg/dL 20 18 17 < > 15 CREATININE mg/dL 0.95 0.92 0.85 < > 0.79* CALCIUM mg/dL 9.4 9.4 9.4 < > 9.0 MAGNESIUM mg/dL 2.2 1.8 2.0 -- 2.1 PHOSPHORUS PLASMA mg/dL -- -- -- -- 4.0 < > = values in this interval not displayed. Recent Labs Lab Units 06/27/21 2145 06/26/21 2347 06/25/21 1956 WBC K/cumm 10.2* 17.4* 6.3 HEMATOCRIT % 33.7* 35.4* 33.5* HEMOGLOBIN g/dL 11.7* 12.4* 11.5* PLATELETS K/cumm 240 227 228 Recent Labs Lab Units 06/24/21 1944 ALK PHOS Units/L 88 BILIRUBIN TOTAL mg/dL 0.2 TOTAL PROTEIN g/dL 6.1* ALBUMIN g/dL 3.0* ALT Units/L 16 AST Units/L 26 NEURO IMAGING (Most recent) No new imaging (last HCT 06/15/2021) PHYSICAL EXAM: HEENT: Mucous membranes moist, poor dentition. Sclera anicteric. Cardiac: Irregularly irregular. A-fib. No M/R/G. Pulmonary: Even, unlabored respirations. Symmetric chest rise and fall. Coarse throughout. Abdomen: Rounded but non-distended in appearance, hypoactive bowel sounds, soft/non-tender to palpation. Skin: Warm and dry. NEURO EXAM (of note, patient very [place] & legally blind) Mental Status Awake while sitting in chair, poor attention span, briefly regards, follows simple commands, oriented to person only Cranial Nerves PERRL, gaze midline, L ptosis, R nasolabial flattening at rest but activates symmetrically, spontaneous cough, +dysarthria Motor Moves all extremities spontaneously NEUROLOGICAL Meds: ??? MVI 15 mL daily ??? Thiamine 100 mg daily ??? Trazodone 100 mg qHS ??? Ramelteon 8 mg qHS # Traumatic brain injury w/ tSAH/IVH in setting of fall and AC -- s/p Keppra x7 days, seizure precautions -- neuro checks q4h + sleep hygiene -- PT, OT, COTTAGE CHEESE MAKER consults # Encephalopathy - Improving -- suspect multifactorial with alcohol withdrawal (OSH given librium), TBI, hospital admission/delirium, possible Wernicke's -- encephalopathy labs unrevealing: TSH 0.8, Folate > 20, B12 742, RPR non- reactive, HIV non-reactive, hepatitis panel non-reactive, ammonia < 20 -- cEEG (06/12-06/13) negative for seizures; EEG (06/15) negative for seizures -- delirium precautions -- s/p 9 days folic acid, 3 days 500 mg IV q8h, thiamine followed by 250 mg x5 days -- continue MVI daily and thiamine 100 mg daily indefinitely # Insomnia - sleeping well per RN -- sleep hygiene ordered -- continue ramelteon at 1800 and trazodone 100 mg qHS CARDIOVASCULAR and HEME Meds: ??? Metoprolol 50 mg BID ??? Pravastatin 40 mg daily TTE (06/13): LA is mildly dilated. Normal RV cavity size and function. LV cavity size is normal. Concentric LV remodeling with normal EF=70-75%. Normal Inferior vena cava. Dilated JOSE RAFAEL=4.7 cm and ascending aorta=3.9 cm. # Atrial fibrillation with RVR -- s/p amio gtt 06/13-06/14; will need outpatient f/u with Panelboard Operator -- previously on amiodarone, discontinued (not optimal medication for this patient to be continued on meterman) -- continue metoprolol 50 mg BID for rate control -- monitor on tele, goal HR<120 -- ensure K+ and Mg adequately repleted -- acute SAH/IVH currently precludes therapeutic anticoagulation (previously on Eliquis); NSGY recommends resuming eliquis 1 month from injury # Chronic systolic HF -- per Cardiology note from 01/25/21: asymptomatic mild LV dysfunction, suspect tachycardia mediated -- previously EF 45-50% (2020), now EF 70-75% as of 06/13 -- continue metoprolol as above -- holding home lisinopril # Possible syncope -- + orthostatic symptoms as outpatient per and + orthostatics at OSH -- TTE unrevealing -- orthostatics positive 06/22 # History of DVT 2019 -- holding home eliquis (most recently reportedly for a-fib), last dose 06/08 -- LED (06/14) negative for DVT # HTN -- holding home lisinopril 40 mg daily for now -- SBP <160 # HLD -- continue home pravastatin # Macrocytic anemia -- likely 2/2 long-standing alcohol use -- folate/B12 WNL -- CBC daily -- hgb goal >7 PULMONARY Resp Min: 13 Max: 25 SpO2 Min: 92 % Max: 100 % Secretions: Minimal to no secretions, able to clear with coughing, no desaturations Oxygen: On HHFT 30% Meds: ??? PRN Albuterol # History of COPD -- extubated 06/18, remained on high humidity face tent until 06/25 -- stable on RA -- cough assist and CPT BID -- SPO2 goal 88-92% -- mobilize as able RENAL Meds: ??? Terazosin 10 mg daily # BPH -- continue home terazosin # Mild hyperkalemia -- possibly related to bactrim -- trend daily BMP # Hyponatremia -- Na dropped to 133 overnight, likely in s/o dehydration -- start NS fluids at 75 mL/hr while NO liquids per COTTAGE CHEESE MAKER on diet (will end after 2L given) GI and ENDO Meds: ??? Protonix 40 mg daily ??? Colace 100 mg daily ??? Senna 8.8 mg BID Diet: Dysphagia 1 diet, NO liquids IV fluids: NS at 75 mL/hr Flushes: None Last BM: 06/28 # Nutrition/Dysphagia -- dysphagia 1 diet with NO liquids -- continue calorie count x3 days to ensure adequate PO (initiated on 06/27, continue through 06/30),Nutrition following -- bowel regimen with colace and senna # GERD -- continue PPI INFECTION RELEVANT/MOST RECENT MICRO LAB DATA: ?? Blood cultures (06/14): Neg ?? Respiratory culture (06/16): Insignificant growth based on current clinical standards, final ?? COVID-19 RNA (06/12): Neg ?? UA (06/12): Neg ?? Hepatitis panel (06/12): Neg ?? Scrotal abscess cultures (06/17): Abundant Bacteroides fragilis, rare mixed microorganisms (susceptibilities pending) Meds: ??? S/p Clindamycin 600 mg q8h (06/18-06/20) ??? Flagyl 500 mg q8h (06/20 - ??? Bactrim 320 mg BID (06/20 - # Bacteroides Fragilis Scrotal abscess with cellulitis # Left hydrocele -- US scrotum (06/17) with left hydrocele and cellulitis -- CT pelvis w contrast (06/17) positive for small left scrotal hydrocele, negative for soft tissue gas, and positive for non-displaced trochanteric fracture -- Urology consulted:10 day course abx and should heal on its own, call if infection appears worse or changes -- clindamycin discontinued 06/20 -- continue flagyl and bactrim through 06/29 for a total of 12 days since susceptibilities are not back yet -- f/u susceptibilities (sent to [place]) # Leukocytosis -- WBC count now trending down (now 10 from 17), patient has remained afebrile -- yusuf culture if spikes >/= 38.5 -- trend CBC daily MUSCULOSKELETAL # Left greater trochanteric fracture -- Ortho consulted; WBAT LLE and no need for MRI, can trial mobilization with PT -- GTS has no further workup, accepted for transfer -- Ortho signed off -- due to patient not being able to weight bear, plan to obtain MRI left hip to further assess injury ACCESS Lines ?? PIV x2 ?? Left NG tube Coombs ??? External urinary device VTE Prophylaxis Last Venous Doppler: 06/14/21 negative Prophylaxis: SCDs, SQH 5,000 units q8h CODE STATUS: Full Code Disposition: Transfer to [facility] Trauma floor Cosigned by Mario Chavarria MD at 06/28/2021 7:07 PM CDT Associated attestation - Mario Chavarria MD - 06/28/2021 7:07 PM CDT I personally evaluated and examined the patient with the nurse practitioner. I have reviewed and confirmed the history, physical exam, laboratory and radiographic data with the nurse practitioner as documented in the ICU note. Please refer to my separate progress note for this patient for my assessment and plan. Mario Chavarria MD Neurocritical Care Attending * Clarence Soto MD PhD - 06/28/2021 6:57 AM CDT Neurosurgery Daily Progress Note 06/28/2021 Hospital Course 06/11 Admitted. HCT with stable ventricular size, small IVH in occipital horns. 06/12: TTSDU, then TTICU for persistently depressed mental status. Repeat head CT stable. Metop for Afib w RVR. Started on high dose thiamine. EEG negative, planning for continuous. 06/13 placed on amio gtt for afib w/ RVR; cEEG d/c'd; TTE wnl 06/14 brain MRI w stable small SAH/IVH, no other infarct/lesion. Hypoxemia and desaturation, intubated overnight, HCT stable. 06/15 cEEG w/ mod gen slowing 06/16 joel 06/[address] pelvis w/ left small nondisplaced greater trochanter fracture 06/19 Ortho- WBAT LLE, no need for MRI unless pain w ambulation, s/o. 06/20 JOEL 06/21 JOEL 06/22 JOEL 06/23 Clinical swallow -> COTTAGE CHEESE MAKER rec MBS. 06/24 JOEL 06/25 JOEL 06/26 JEOL 06/27 JOEL Objective Physical Exam: not sedated EO voice, regards, follows commands (wiggles toes) Oriented x1 PERRL, gaze conjugate, face symmetric FC in arms and legs antigravity Vitals: 24hr min/max vitals: Temp Min: 36 ??C (96.8 ??F) Max: 36.9 ??C (98.4 ??F) Pulse Min: 78 Max: 137 Resp Min: 13 Max: 26 SpO2 Min: 92 % Max: 100 % MAP (mmHg) Min: 69 Max: 119 Intake and output: I/O last 2 completed shifts: In: 1220 [NG/GT:1160; IV Piggyback:60] Out: 775 [Urine:775] Medications: Scheduled Scheduled Medications Medication Dose Route Frequency ??? docusate (COLACE) 10 mg/mL oral liquid 100 mg 100 mg feeding tube Daily ??? heparin 5,000 unit/mL injection 5,000 Units 5,000 Units subcutaneous Q8H MONET ??? metoprolol tartrate (LOPRESSOR) immediate release tablet 50 mg 50 mg feeding tube BID ??? metroNIDAZOLE (FLAGYL) tablet 500 mg 500 mg feeding tube Q8H MONET ??? miconazole (SECURA THICK) 2 % cream topical BID ??? rdrdjqiz-pkb-ntlnngv gluconate (CENTRUM) 0.6 mg iron/mL oral liquid 15 mL 15 mL feeding tube Daily ??? pantoprazole (PROTONIX) 4 mg/mL injection 40 mg 40 mg intravenous Daily ??? pravastatin (PRAVACHOL) tablet 40 mg 40 mg feeding tube Daily ??? QUEtiapine (SEROquel) tablet 12.5 mg 12.5 mg oral Once ??? ramelteon (ROZEREM) tablet 8 mg 8 mg feeding tube Nightly ??? senna 1.76 mg/mL syrup 8.8 mg 8.8 mg feeding tube BID ??? sodium chloride 0.9% flush 0.5-20 mL 0.5-20 mL intra-catheter Q8H MONET ??? sodium chloride 0.9% flush 0.5-20 mL 0.5-20 mL intra-catheter Q8H MONET ??? sulfamethoxazole-trimethoprim (BACTRIM) 40-8 mg/mL (dosed on TMP component) oral suspension 320mg of trimethoprim 320 mg of trimethoprim feeding tube BID ??? terazosin (HYTRIN) capsule 10 mg 10 mg feeding tube Nightly ??? thiamine (VITAMIN B1) tablet 100 mg 100 mg feeding tube Daily ??? traZODone (DESYREL) tablet 100 mg 100 mg feeding tube Nightly As needed PRN Medications Medication Dose Route Frequency Last Admin ??? acetaminophen (TYLENOL) tablet 650 mg 650 mg feeding tube Q4H PRN 650 mg at 06/18/21 0035 ??? albuterol 2.5 mg/0.5 mL nebulizer solution 1.25 mg 1.25 mg nebulization Q6H PRN (RT) ??? bisacodyL (DULCOLAX) suppository 10 mg 10 mg rectal Daily PRN ??? ondansetron (ZOFRAN) injection 4 mg 4 mg intravenous Q6H PRN ??? sodium chloride 0.9% flush 0.5-20 mL 0.5-20 mL intra-catheter PRN ??? sodium chloride 0.9% flush 0.5-20 mL 0.5-20 mL intra-catheter PRN 10 mL at 06/25/21 0745 Labs: Lab Results Component Value Date SODIUM 133 (L) 06/27/2021 SODIUM 135 06/26/2021 SODIUM 135 06/25/2021 Lab Results Component Value Date GLUCOSE 107 06/27/2021 CALCIUM 9.4 06/27/2021 POTASSIUM 4.7 06/27/2021 CO2 27 06/27/2021 CHLORIDE 99 06/27/2021 BUNSER 20 06/27/2021 CREATININE 0.95 06/27/2021 Lab Results Component Value Date WBC 10.2 (H) 06/27/2021 WBC 17.4 (H) 06/26/2021 WBC 6.3 06/25/2021 HGB 11.7 (L) 06/27/2021 HGB 12.4 (L) 06/26/2021 HGB 11.5 (L) 06/25/2021 HCT 33.7 (L) 06/27/2021 HCT 35.4 (L) 06/26/2021 HCT 33.5 (L) 06/25/2021 LABPLAT 240 06/27/2021 LABPLAT 227 06/26/2021 LABPLAT 228 06/25/2021 Lab Results Component Value Date INR 1.1 06/11/2021 INR 1.1 07/13/2020 INR 1.6 (H) 02/21/2020 PT 12.5 06/11/2021 PT 12.3 07/13/2020 PT 17.9 (H) 02/21/2020 APTT 31 06/11/2021 APTT 80 (H) 02/20/2020 APTT 26 02/20/2020 No components found for: TROPONIN PT/OT assessment: PT Recommendation/Plan: Half-Way Facility OT Recommendation: Inpatient Rehab Facility Assessment/Plan Hospital Day: 18 Jania Redman is a 71 y.o. year old male who presented with tSAH and small IVH after MGLF. Plan Respiratory care CIWA watch, out of window afib watch - rate controlled, chronic TTF today Mobilize, oob Void watch Appreciate ortho recs for femur fracture, wbat, MRI if fails DVT prophylaxis: ok for medical ppx Responsible team (call resident in bold with questions) Vascular Note created by Clarence Soto MD PhD on 06/28/2021 at 6:57 AM. Cosigned by Seth Kiser MD at 07/02/2021 8:52 AM CDT * Mario Chavarria MD - 06/27/2021 12:40 PM CDT Neurocritical Care Attending Progress Note Admission Diagnosis: Acute Traumatic Brain Injury with Subarachnoid Hemorrhage and Intraventricular Hemorrhage, Acute Encephalopathy Overnight Events: He continues to do well on room air. No significant desaturation events. No suctioning requirements. He passed his modified barium swallow for a dysphagia 1 diet with NO liquids. His MRI hip is stillpending. His WBC increased from 6.3k to 17.4k. He was afebrile. No other acute events overnight. Hedenies any chest pain, shortness of breath or abdominal pain. Current Medication List: I reviewed the patient's current active medication list and discussed it with our clinical pharmacist. Vital Signs: Temp: [36.6 ??C (97.9 ??F)-36.7 ??C (98.1 ??F)] 36.7 ??C (98.1 ??F) Pulse: [72-113] 83 BP: (91-128)/(61-114) 91/78 Resp: [14-26] 21 SpO2: [90 %-100 %] 99 % FiO2 (%): [30 %] 30 % Labs/Microbiology: All laboratory results over the past 24 hours have been personally reviewed within the EMR. Imaging: All imaging over the past 24 hours has been personally reviewed in the EMR. Exam: General: He is awake and watching TV while sitting in his bedside chair. He is breathing comfortably on room air. Neuro: He opened eyes spontaneously. He regarded and sustained attention for 1-2 minutes. He remains very hard of hearing (does better with questions on his left side). He was oriented to self only. [place] the [place], the month was December and the year was 1971. He had moderate dysarthria. He had midline gaze. His pupils were reactive to light bilaterally (3->2mm). He had full ex traocular movements. His eyebrow raise was symmetric. He had L eyelid ptosis. He had decreased nasolabial fold on the right but equal velocity and endpoint of smile bilaterally. He had midline tongueprotrusion. He had slight RUE drift, no drift in the LUE and moved his BLE in plane with brief antigravity. Formal testing with 5/5 LUE proximally and distally and 4+/5 RUE proximally and distally. HEENT: sclera anicteric, conjunctiva pink, mucous membranes moist CV: normal S1 and S2, irregular rhythm and normal rate, no murmurs Pulm: good air movement bilaterally, slightly less coarse breath sounds throughout, no wheezing, nocrackles Abdomen: soft, non-distended, non-tender, normoactive bowel sounds Ext: 2+ pulses with trace pitting edema in the BLE. Plan: 1. Traumatic Brain Injury with SAH and Intraventricular Hemorrhage Neurologic exam is doing well. He will continue to work with PT, OT and [employer]. Will continue neuro checks q4 hours with sleep hygiene. 2. Alcohol Dependence He has completed a high dose thiamine therapy course and seven days of folic acid therapy. We will continue MVI daily and thiamine 100mg daily indefinitely. 3. ICU Delirium He is sleeping much better. This has improved significantly with sleep. Will continue ramelteon 8mgnightly at 1800 to establish a normal sleep/wake cycle and trazodone 100mg qHS to aid with sleep consolidation as well. We are providing delirium precautions with frequent re-orientation. 4. Atrial Fibrillation His HR was 70 to 110 bpm yesterday. He will remain on metoprolol tartrate 50mg BID. Neurosurgery isok resuming his apixaban one month post traumatic injury (07/13 at the earliest) for secondary strokeprevention. 5. Heart Failure with reduced Ejection Fraction His LVEF is improved from his baseline of 45-50% up to 70 to 75%. Will continue his beta edmund asabove while maintaining clinical euvolemia. Will provide furosemide as needed if he appears volume overloaded. 6. Syncope with Orthostatic Hypotension Still need to re-assess vitals once he is able to stand consistently (his lying to seated vitals are not orthostatic currently) 7. Hypertension His SBP ranged 90 to 130 mmHg yesetreday. Will continue his metoprolol 50mg BID and terasozin 10mg daily. 8. Hyperlipidemia Will continue his pravastatin 40mg daily. 9. Anemia, Macrocytic His hemoglobin was 12.4 g/dL today. Will continue to maintain Hgb > 7.0 g/dL. 10. At Risk for Altered Respiratory Function Continued improvement in his respiratory status. Will continue cough assist and CPT BID today. He is now on room air. Will continue to have him mobilize out of bed to chair daily 11. COPD without exacerbation Will maintain spo2 goal 88 to 92%. He has albuterol and ipratroprium available as needed for acute shortness of breath or wheezing. 12. BPH Will continue terazosin 10mg qHS. He is voiding post coombs removal on 06/25. 13. Dysphagia due to TBI He passed for a dysphagia 1 diet with NO liquids. He ate a few bites of breakfast but not much else. Will continue to encourage oral intake and full assist with all meals. Will keep his NGT in place for the time being and start a calorie count. His last bowel movement was on 06/23. Will continue senna and colace BID today and give him a suppository. 14. GERD Will continue his home PPI. 15. Left Trochanteric Fracture Orthopedic surgery evaluated and did not think surgical intervention was needed at this time. Will supportive care with PT and OT with weight bearing as tolerated per their recommendations. He has not been able to tolerate standing. His MRI of the R hip is pending. 16. Bacteroides Fragilis Scrotal Abscess and Cellulitis Urology evaluated and reviewed his CT imaging. They recommended a 10 day course of antibiotics. He is on day 10 his treatment course (but day 8 of bactrim and metronidazole). As the sensitivities have not returned we will simply continue to 06/29. He has a new leukocytosis today but is afebrile. Will monitor daily CBC and culture if he has a fever. 17. Prophylaxis DVT: SCD, SQ heparin 5k q8 hours GI: home PPI Pulm: mobilize, cough assist and CPT BID 18. Lines NGT, PIV x2, external male urinary collection device. 19. Disposition He is awaiting [facility]-trauma floor bed. He will be [facility]-trauma primary upon transfer out of the ICU (currently is neurosurgery primary). ??? I personally evaluated and examined the patient on 06/27/2021 at 12:40 PM ??? I discussed the patient's treatment plan with neurosurgery, respiratory therapy, his bedside nurse and the patient. A member of our team will update his family post rounds. ??? I spent 36 minutes in full attendance of the patient's care. Greater than 50% of this time was spent in counseling the patient and coordinating the plan of care. Mario Chavarria MD Neurocritical Care Attending * Clarence Soto MD PhD - 06/27/2021 7:00 AM CDT Neurosurgery Daily Progress Note 06/27/2021 Hospital Course 06/11 Admitted. HCT with stable ventricular size, small IVH in occipital horns. 06/12: TTSDU, then TTICU for persistently depressed mental status. Repeat head CT stable. Metop for Afib w RVR. Started on high dose thiamine. EEG negative, planning for continuous. 06/13 placed on amio gtt for afib w/ RVR; cEEG d/c'd; TTE wnl 06/14 brain MRI w stable small SAH/IVH, no other infarct/lesion. Hypoxemia and desaturation, intubated overnight, HCT stable. 06/15 cEEG w/ mod gen slowing 06/16 joel 06/[address] pelvis w/ left small nondisplaced greater trochanter fracture 06/19 Ortho- WBAT LLE, no need for MRI unless pain w ambulation, s/o. 06/20 JOEL 06/21 JOEL 06/22 JOEL 06/23 Clinical swallow -> [employer] rec MBS. 06/24 JOEL 06/25 JOEL Objective Physical Exam: not sedated EO voice, regards, follows commands (squeezes hands) Oriented x1 PERRL, gaze conjugate, face symmetric FC in arms and legs antigravity Vitals: 24hr min/max vitals: Temp Min: 36.6 ??C (97.9 ??F) Max: 36.7 ??C (98.1 ??F) Pulse Min: 64 Max: 113 Resp Min: 14 Max: 25 SpO2 Min: 90 % Max: 100 % MAP (mmHg) Min: 64 Max: 119 Intake and output: I/O last 2 completed shifts: In: 1575 [NG/GT:1515; IV Piggyback:60] Out: 1325 [Urine:1325] Medications: Scheduled Scheduled Medications Medication Dose Route Frequency ??? docusate (COLACE) 10 mg/mL oral liquid 100 mg 100 mg feeding tube Daily ??? heparin 5,000 unit/mL injection 5,000 Units 5,000 Units subcutaneous Q8H MONET ??? metoprolol tartrate (LOPRESSOR) immediate release tablet 50 mg 50 mg feeding tube BID ??? metroNIDAZOLE (FLAGYL) tablet 500 mg 500 mg feeding tube Q8H MONET ??? fyikeydo-ajh-tejpfue gluconate (CENTRUM) 0.6 mg iron/mL oral liquid 15 mL 15 mL feeding tube Daily ??? pantoprazole (PROTONIX) 4 mg/mL injection 40 mg 40 mg intravenous Daily ??? pravastatin (PRAVACHOL) tablet 40 mg 40 mg feeding tube Daily ??? ramelteon (ROZEREM) tablet 8 mg 8 mg feeding tube Nightly ??? senna 1.76 mg/mL syrup 8.8 mg 8.8 mg feeding tube BID ??? sodium chloride 0.9% flush 0.5-20 mL 0.5-20 mL intra-catheter Q8H MONET ??? sodium chloride 0.9% flush 0.5-20 mL 0.5-20 mL intra-catheter Q8H MONET ??? sulfamethoxazole-trimethoprim (BACTRIM) 40-8 mg/mL (dosed on TMP component) oral suspension 320mg of trimethoprim 320 mg of trimethoprim feeding tube BID ??? terazosin (HYTRIN) capsule 10 mg 10 mg feeding tube Nightly ??? thiamine (VITAMIN B1) tablet 100 mg 100 mg feeding tube Daily ??? traZODone (DESYREL) tablet 100 mg 100 mg feeding tube Nightly As needed PRN Medications Medication Dose Route Frequency Last Admin ??? acetaminophen (TYLENOL) tablet 650 mg 650 mg feeding tube Q4H PRN 650 mg at 03/13/22 0035 ??? albuterol 2.5 mg/0.5 mL nebulizer solution 1.25 mg 1.25 mg nebulization Q6H PRN (RT) ??? bisacodyL (DULCOLAX) suppository 10 mg 10 mg rectal Daily PRN ??? ondansetron (ZOFRAN) injection 4 mg 4 mg intravenous Q6H PRN ??? sodium chloride 0.9% flush 0.5-20 mL 0.5-20 mL intra-catheter PRN ??? sodium chloride 0.9% flush 0.5-20 mL 0.5-20 mL intra-catheter PRN 10 mL at 06/25/21 0745 Labs: Lab Results Component Value Date SODIUM 135 06/26/2021 SODIUM 135 06/25/2021 SODIUM 135 06/25/2021 Lab Results Component Value Date GLUCOSE 102 06/26/2021 CALCIUM 9.4 06/26/2021 POTASSIUM 4.7 06/26/2021 CO2 27 06/26/2021 CHLORIDE 99 06/26/2021 BUNSER 18 06/26/2021 CREATININE 0.92 06/26/2021 Lab Results Component Value Date WBC 17.4 (H) 06/26/2021 WBC 6.3 06/25/2021 WBC 6.1 06/24/2021 HGB 12.4 (L) 06/26/2021 HGB 11.5 (L) 06/25/2021 HGB 11.8 (L) 06/24/2021 HCT 35.4 (L) 06/26/2021 HCT 33.5 (L) 06/25/2021 HCT 34.5 (L) 06/24/2021 LABPLAT 227 06/26/2021 LABPLAT 228 06/25/2021 LABPLAT 252 06/24/2021 Lab Results Component Value Date INR 1.1 06/11/2021 INR 1.1 07/13/2020 INR 1.6 (H) 02/21/2020 PT 12.5 06/11/2021 PT 12.3 07/13/2020 PT 17.9 (H) 02/21/2020 APTT 31 06/11/2021 APTT 80 (H) 02/20/2020 APTT 26 02/20/2020 No components found for: TROPONIN PT/OT assessment: PT Recommendation/Plan: Half-Way Facility OT Recommendation: Inpatient Rehab Facility Assessment/Plan Hospital Day: 17 Jania Redman is a 71 y.o. year old male who presented with tSAH and small IVH after MGLF. Plan Respiratory care CIWA watch, out of window afib watch - rate controlled, chronic TTF today Mobilize, oob Void watch Appreciate ortho recs for femur fracture, wbat, MRI if fails DVT prophylaxis: ok for medical ppx Responsible team (call resident in bold with questions) Vascular Note created by Clarence Soto MD PhD on 06/27/2021 at 7:01 AM. Cosigned by Seth Kiser MD at 07/02/2021 8:54 AM CDT * Tamiko Ray, [employer]INTENA[employer]CE MECH[employer]IC - 06/27/2021 6:32 AM CDT Neuro Critical Care Progress Note Dx: TBI with trace tSAH and IVH, Encephalopathy HPI: 71M HTN/HL, a-fib on Eliquis, HFrEF (45-50% EF 2020), COPD not on home O2, legally blind, and hearing loss admitted with trace tSAH and IVH following a fall. Admitted OSH with altered LOC. Initial CT neg but subsequent MRI with tr SAH/IVH. Tx to [facility] NSGY service 06/11 where has remained encephalopathic. Medicine consulted for encephalopathy and felt airway was threatened, hence transfer to ICU06/12. Interval Events: -- remains stable off face tent and on RA, no suctioning requirements -- passed MBS for dysphagia 1 diet with NO liquids -- MRI L hip is pending -- WBC count increased on AM labs from to , patient remains afebrile -- awaiting transfer to Geriatric Trauma floor Vitals Temp Min: 36.6 ??C (97.9 ??F) Max: 36.7 ??C (98.1 ??F) Pulse Min: 64 Max: 113 NIBP BP Min: 95/51 Max: 132/98 MAP (mmHg) Av.5 Min: 64 Max: 119 A-line No data recorded I/O: Intake/Output Summary (Last 24 hours) at 06/27/2021 0632 Last data filed at 06/27/2021 0600 Gross per 24 hour Intake 1575 ml Output 1325 ml Net 250 ml UOP: 1,325 mL LABS Recent Labs Lab Units 06/26/21234606/25/[id number]/25/[id number]/24/211943 SODIUM mmol/L 135 135 135 133* POTASSIUM PLASMA mmol/L 4.7 4.9 5.1* 4.8 CHLORIDE mmol/L 99 100 101 99 CO2 mmol/L 27 29 29 27 ANIONGAP mmol/L 9 6 5 7 GLUCOSE mg/dL 102 109 108 123 BUN SERUM mg/dL 18 17 14 15 CREATININE mg/dL 0.92 0.85 0.85 0.79* CALCIUM mg/dL 9.4 9.4 8.9 9.0 MAGNESIUM mg/dL 1.8 2.0 -- 2.1 PHOSPHORUS PLASMA mg/dL -- -- -- 4.0 Recent Labs Lab Units 06/26/21234606/25/[id number]/24/211943 WBC K/cumm 17.4* 6.3 6.1 HEMATOCRIT % 35.4* 33.5* 34.5* HEMOGLOBIN g/dL 12.4* 11.5* 11.8* PLATELETS K/cumm 227 228 252 Recent Labs Lab Units 06/24/211943 ALK PHOS Units/L 88 BILIRUBIN TOTAL mg/dL 0.2 TOTAL PROTEIN g/dL 6.1* ALBUMIN g/dL 3.0* ALT Units/L 16 AST Units/L 26 Recent Labs Lab Units 06/20/21 0812 PH ART 7.42 PCO2 ART mmHg 43 PO2 ART mmHg 110* HCO3 ART (CALC) mmol/L 29 O2 SAT ART (NANI) % 99* BASE EXC ART mmol/L 3 NEURO IMAGING (Most recent) No new imaging (last HCT 06/15/2021) PHYSICAL EXAM: HEENT: Mucous membranes moist, poor dentition. Sclera anicteric. Cardiac: Irregularly irregular. A-fib. No M/R/G. Pulmonary: Even, unlabored respirations. Symmetric chest rise and fall. Coarse throughout. Abdomen: Rounded but non-distended in appearance, hypoactive bowel sounds, soft/non-tender to palpation. Skin: Warm and dry. NEURO EXAM (of note, patient very [place]) Mental Status Awake sitting in chair, poor attention span, regards, follows simple commands, oriented to person only Cranial Nerves PERRL, gaze midline, L ptosis, R nasolabial flattening at rest but activates symmetrically, spontaneous cough, +dysarthria Motor Moves all extremities spontaneously NEUROLOGICAL Meds: ??? MVI 15 mL daily ??? Thiamine 100 mg daily ??? Trazodone 100 mg qHS ??? Ramelteon 8 mg qHS # Traumatic brain injury w/ tSAH/IVH in setting of fall and AC -- s/p Keppra x7 days, seizure precautions -- neuro checks q4h + sleep hygiene -- PT, OT, [employer] consults # Encephalopathy - Improving -- suspect multifactorial with alcohol withdrawal (OSH given librium), TBI, hospital admission/delirium, possible Wernicke's -- encephalopathy labs unrevealing: TSH 0.8, Folate > 20, B12 742, RPR non- reactive, HIV non-reactive, hepatitis panel non-reactive, ammonia < 20 -- cEEG (06/12-06/13) negative for seizures; EEG (06/15) negative for seizures -- delirium precautions -- s/p 9 days folic acid, 3 days 500 mg IV q8h, thiamine followed by 250 mg x5 days -- continue MVI daily and thiamine 100 mg daily indefinitely # Insomnia - sleeping per RN -- sleep hygiene ordered -- continue ramelteon at 1800 and trazodone 100 mg qHS CARDIOVASCULAR and HEME Meds: ??? Metoprolol 50 mg BID ??? Pravastatin 40 mg daily TTE (06/13): LA is mildly dilated. Normal RV cavity size and function. LV cavity size is normal. Concentric LV remodeling with normal EF=70-75%. Normal Inferior vena cava. Dilated JOSE RAFAEL=4.7 cm and ascending aorta=3.9 cm. # Atrial fibrillation with RVR -- s/p amio gtt 06/13-06/14; will need outpatient f/u with Panelboard Operator -- previously on amiodarone, discontinued (not optimal medication for this patient to be continued on fdc) -- continue metoprolol 50 mg BID for rate control -- monitor on tele, goal HR<120 -- ensure K+ and Mg adequately repleted -- acute SAH/IVH currently precludes therapeutic anticoagulation (previously on Eliquis); NSGY recommends resuming eliquis 1 month from injury # Chronic systolic HF -- per Cardiology note from 01/25/21: asymptomatic mild LV dysfunction, suspect tachycardia mediated -- previously EF 45-50% (2020), now EF 70-75% as of 06/13 -- continue metoprolol as above -- holding home lisinopril # Possible syncope -- + orthostatic symptoms as outpatient per and + orthostatics at OSH -- TTE unrevealing -- orthostatics positive 06/22 # History of DVT 2019 -- holding home eliquis (most recently reportedly for a-fib), last dose 06/08 -- LED (06/14) negative for DVT # HTN -- holding home lisinopril 40 mg daily for now -- SBP <160 # HLD -- continue home pravastatin # Macrocytic anemia -- likely 2/2 long-standing alcohol use -- folate/B12 WNL -- CBC daily -- hgb goal >7 PULMONARY Resp Min: 14 Max: 25 SpO2 Min: 90 % Max: 100 % Secretions: Minimal to no secretions, able to clear with coughing, no desaturations Oxygen: On HHFT 30% Meds: ??? PRN Albuterol # History of COPD -- extubated 06/18, remained on high humidity face tent until 06/25 -- stable on RA -- cough assist and CPT BID -- SPO2 goal 88-92% -- mobilize as able RENAL Meds: ??? Terazosin 10 mg daily # BPH -- continue home terazosin # Mild hyperkalemia -- possibly related to bactrim -- trend daily BMP GI and ENDO Meds: ??? Protonix 40 mg daily ??? Colace 100 mg daily ??? Senna 8.8 mg BID Diet: Jevity 1.5 at 60 mL/hr IV fluids: SL IV Flushes: None Last BM: 06/23 # Nutrition/Dysphagia -- dysphagia 1 diet with NO liquids, monitor oral intake and start calorie count -- discontinue tube feeds so patient can develop an appetite -- bowel regimen with colace and senna -> give dulcolax suppository today x1 # GERD -- continue PPI INFECTION RELEVANT/MOST RECENT MICRO LAB DATA: ?? Blood cultures (06/14): Neg ?? Respiratory culture (06/16): Insignificant growth based on current clinical standards, final ?? COVID-19 RNA (06/12): Neg ?? UA (06/12): Neg ?? Hepatitis panel (06/12): Neg ?? Scrotal abscess cultures (06/17): Abundant Bacteroides fragilis, rare mixed microorganisms (susceptibilities pending) Meds: ??? S/p Clindamycin 600 mg q8h (06/18-06/20) ??? Flagyl 500 mg q8h (06/20 - ??? Bactrim 320 mg BID (06/20 - # Bacteroides Fragilis Scrotal abscess with cellulitis # Left hydrocele -- US scrotum (06/17) with left hydrocele and cellulitis -- CT pelvis w contrast (06/17) positive for small left scrotal hydrocele, negative for soft tissue gas, and positive for non-displaced trochanteric fracture -- Urology consulted:10 day course abx and should heal on its own, call if infection appears worse or changes -- clindamycin discontinued 06/20 -- continue flagyl and bactrim through 06/29 for a total of 12 days since susceptibilities are not back yet -- f/u susceptibilities (sent to [place]) # Leukocytosis -- WBC count overnight increased from 6 to 17, patient has remained afebrile -- yusuf culture if spikes >/= 38.5 -- trend CBC daily MUSCULOSKELETAL # Left greater trochanteric fracture -- Ortho consulted; WBAT LLE and no need for MRI, can trial mobilization with PT -- GTS has no further workup, accepted for transfer -- Ortho signed off -- due to patient not being able to weight bear, plan to obtain MRI left hip to further assess injury ACCESS Lines ?? PIV x2 ?? Left NG tube Coombs ??? External urinary device VTE Prophylaxis Last Venous Doppler: 06/14/21 negative Prophylaxis: SCDs, SQH 5,000 units q8h CODE STATUS: Full Code Disposition: Transfer to [facility] Trauma floor Cosigned by Mario Chavarria MD at 06/27/2021 8:00 PM CDT Associated attestation - Mario Chavarria MD - 06/27/2021 8:00 PM CDT I personally evaluated and examined the patient with the nurse practitioner. I have reviewed and confirmed the history, physical exam, laboratory and radiographic data with the nurse practitioner as documented in the ICU note. Please refer to my separate progress note for this patient for my assessment and plan. Mario Chavarria MD Neurocritical Care Attending * Mario Chavarria MD - 06/26/2021 11:49 AM CDT Neurocritical Care Attending Progress Note Admission Diagnosis: Acute Traumatic Brain Injury with Subarachnoid Hemorrhage and Intraventricular Hemorrhage, Acute Encephalopathy Overnight Events: He did well yesterday with no significant respiratory distress. He is now on room air. His cough assist and CPT was decreased to BID without any ill effects. No significant suctioning requirements per nursing. No other acute events overnight. This morning he reports breathing comfortably, denies chest pain and denies abdominal pain. Current Medication List: I reviewed the patient's current active medication list and discussed it with our clinical pharmacist. Vital Signs: Temp: [36.2 ??C (97.2 ??F)-36.7 ??C (98.1 ??F)] 36.7 ??C (98.1 ??F) Pulse: [68-101] 77 BP: (90-132)/(51-98) 112/82 Resp: [14-24] 22 SpO2: [90 %-100 %] 93 % FiO2 (%): [30 %] 30 % Labs/Microbiology: All laboratory results over the past 24 hours have been personally reviewed within the EMR. Imaging: All imaging over the past 24 hours has been personally reviewed in the EMR. Exam: General: Sitting up in his bedside chair. Breathing comfortably on room air and watching television. Neuro: He opened eyes spontaneously. He regarded and sustained attention for 1-2 minutes. He remains very hard of hearing (does better with questions on his left side). He was oriented to self only. He reported he was home, the month was May and the year was 1954. He had moderate dysarthria. He had midline gaze. His pupils were reactive to light bilaterally (3->2mm). He had full extraocular movements. His eyebrow raise was symmetric. He had L eyelid ptosis. He had decreased nasolabial fold on the right but equal velocity and endpoint of smile bilaterally. He had midline tongue protrusion. He had slight RUE drift, no drift in the LUE and moved his BLE in plane with brief antigravity.Formal testing with 5/5 LUE proximally and distally and 4+/5 RUE proximally and distally. HEENT: sclera anicteric, conjunctiva pink, mucous membranes moist CV: normal S1 and S2, irregular rhythm and normal rate, no murmurs Pulm: good air movement bilaterally, slightly less coarse breath sounds throughout, no wheezing, nocrackles Abdomen: soft, non-distended, non-tender, normoactive bowel sounds Ext: 2+ pulses with trace pitting edema in the BLE. Plan: 1. Traumatic Brain Injury with SAH and Intraventricular Hemorrhage Still sustaining his neurologic exam. 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 Neuro checks will remain q4 hours with sleep hygiene. 2. Alcohol Withdrawal Resolved. Now well outside the window for acute withdrawal. He completed high dose thiamine therapycourse and seven days of folic acid therapy. We will continue MVI daily and thiamine 100mg daily indefinitely. 3. ICU Delirium Improving as he has slept better for the past two night. Will continue his ramelteon 8mg nightly [id number] to establish a normal sleep/wake cycle and trazodone 100mg qHS to aid with sleep consolidationas well. We are providing delirium precautions with frequent re-orientation. 4. Atrial Fibrillation His HR was 80 to 100 bpm yesterday. We will continue his current metoprolol tartrate 50mg BID. Neurosurgery is ok resuming his apixaban one month post traumatic injury (07/13 at the earliest) for secondary stroke prevention. 5. Heart Failure with reduced Ejection Fraction His LVEF is improved from his baseline of 45-50% up to 70 to 75%. He will remain on a beta edmund as above. We will continue to maintain clinical euvolemia. Will provide furosemide as needed if he appears volume overloaded. 6. Syncope with Orthostatic Hypotension Still need to re-assess vitals once he is able to stand consistently (his lying to seated vitals are not orthostatic currently) 7. Hypertension His SBP ranged 100 to 130 mmHg yesetreday. Will continue his metoprolol 50mg BID and terasozin 10mgdaily. 8. Hyperlipidemia Will continue his pravastatin 40mg daily. 9. Anemia, Macrocytic His hemoglobin was 11.5 g/dL today. Will continue to maintain Hgb > 7.0 g/dL. 10. At Risk for Altered Respiratory Function His respiratory status has improved over the past four day. No significant suctioning requirements yesterday. Will continue cough assist and CPT BID today. He is now on room air. Will continue to have him mobilize out of bed to chair daily 11. COPD without exacerbation Will maintain spo2 goal 88 to 92%. He has albuterol and ipratroprium available as needed for acute shortness of breath or wheezing. 12. BPH He is on terazosin 10mg qHS. He is voiding post coombs removal yesterday. 13. Dysphagia due to TBI He is doing well on Jevity 1.5 at 60 mL/hr. Will continue holding free water flushes given sodium of 135 mEq/L. Plan for MBSS today with COTTAGE CHEESE MAKER. His last bowel movement was on 06/23. Will add back senna and colace BID today. 14. GERD Will continue his home PPI. 15. Left Trochanteric Fracture Orthopedic surgery evaluated and did not think surgical intervention was needed at this time. Will supportive care with PT and OT with weight bearing as tolerated per their recommendations. He has not been able to tolerate standing so an MRI of the R hip is pending. 16. Bacteroides Fragilis Scrotal Abscess and Cellulitis Urology evaluated and reviewed his CT imaging. They recommended a 10 day course of antibiotics. He is on day 9 his treatment course (but day 7 of bactrim and metronidazole). Will follow up sensitivities to ensure the days of clindamycin treatment count toward his final antibiotic duration. If he was not sensitive to clindamycin then the end date would be 06/29 (rather than 06/27). 17. Prophylaxis DVT: SCD, SQ heparin 5k q8 hours GI: home PPI Pulm: mobilize, cough assist and CPT QID 18. Lines NGT, PIV x2, external male urinary collection device. 19. Disposition I think he is now doing well enough to go to the [facility]-tra[facility] floor rather than step down unit. He will be [facility]-trauma primary upon transfer out of the ICU (currently is neurosurgery primary). ??? I personally evaluated and examined the patient on 06/26/2021 at 11:49 AM ??? I discussed the patient's treatment plan with neurosurgery, respiratory therapy, his bedside nurse and the patient. A member of our team will update his family post rounds. ??? I spent 37 minutes in full attendance of the patient's care. Greater than 50% of this time was spent in counseling the patient and coordinating the plan of care. Mario Chavarria MD Neurocritical Care Attending * Sera Guevara, PT - 06/26/2021 10:57 AM CDT Physical Therapy Physical Therapy Progress Note NOTE: This is a summary note of the troy components of the treatment session. For full details, review chart for all flowsheets documented on by this physical therapy clinician on this date. Vital signs documented in vital signs flowsheet. Care plan progress documented in Care Plan Activity. For questions, please review the treatment team and contact the PT or WELL CLEANER currently assigned to this patient. If a physical therapy clinician is not assigned to this patient, please call [phone]. 06/26/21 1052 PT Last Visit Session Type Treatment PT Received On 06/26/21 Safe Environment Arm Band Checked;Chair Alarm placed and activated;Call Light within Reach;NotifiedRN;Session Completed Bedside;Patient found sitting in Chair (patient left sitting in recliner) Subjective Agreeable to Therapy Precautions Precautions Fall risk LLE Weight Bearing WBAT Pain Assessment Pain Assessment No/denies pain Cognition Arousal/Alertness Alert Orientation Oriented to person Following Commands Unable to follow commands Static Sitting Balance Static Sitting-Level of Assistance Close supervision Equipment Use Equipment Use Comments gait belt used Transfer 1 Trials/Comments 1 attempted to perform sit to stand 4 trials- patient resisting sit to stand transfer and pushing posterior Basic Mobility - 6 Click How much difficulty does the patient have: Turning over in bed 2 How much difficulty does the patient currently have: Sitting down and standing up from a chair witharms? 2 How much difficulty does the patient have: Moving from lying on back to sitting on the side of the bed? 2 How much difficulty does the patient have: Moving to and from a bed to a chair including wheelchair? 1 How much help does the patient currently need: Walk in hospital room? 1 How much help from another person does the patient currently need: Climbing 3-5 steps with a railing? 1 Total 6 Click Score (range 6-24) 9 Score Interpretation 25.80 Plan Plan Continue with current plan;If this is the last note, consider this the discharge summary Recommendation/Plan PT Recommendation/Plan Half-Way Facility PT Frequency 3-5x/wk PT - Next Appointment 06/28/21 Multi-Disciplinary Problems (from Physical Therapy) Active Problems Problem: Mobility Start Date: 06/13/21 Goal Start Date Expected End Date End Date STG - Patient will ambulate 06/13/21 07/11/21 -- Goal Details: 100 ft wthi LRAD, [place] Problem: Transfers Start Date: 06/13/21 Goal Start Date Expected End Date End Date STG - Patient to transfer to and from sit to supine 06/13/21 06/27/21 -- Goal Details: [place] Goal Start Date Expected End Date End Date STG - Patient will transfer sit to and from stand 06/13/21 06/27/21 -- Goal Details: Maritza with LRAD Problem: Mobility Start Date: 06/13/21 Goal Start Date Expected End Date End Date LTG - Patient will demonstrate functional mobility with the following level of assist: 06/13/21 06/27/21 -- Goal Details: Cherelle with LRAD * Sada العلي NP - 06/26/2021 8:00 AM CDT Neuro Critical Care Progress Note Dx: TBI with trace tSAH and IVH, Encephalopathy HPI: 71M HTN/HL, a-fib on Eliquis, HFrEF (45-50% EF 2020), COPD not on home O2, legally blind, and hearing loss admitted with trace tSAH and IVH following a fall. Admitted OSH with altered LOC. Initial CT neg but subsequent MRI with tr SAH/IVH. Tx to [facility]GY service 06/11 where has remained encephalopathic. Medicine consulted for encephalopathy and felt airway was threatened, hence transfer to ICU06/12. Interval Events: -- face tent discontinued overnight, now on RA and stable with no suctioning requirements -- cough assist and CPT decreased to BID, no issues -- MRI L hip is pending -- awaiting transfer to geriatric trauma SDU -> now stable to go to floor Vitals Temp Min: 36.2 ??C (97.2 ??F) Max: 36.7 ??C (98.1 ??F) Pulse Min: 68 Max: 101 NIBP BP Min: 90/74 Max: 131/78 MAP (mmHg) Av.2 Min: 71 Max: 95 A-line No data recorded I/O: Intake/Output Summary (Last 24 hours) at 06/26/2021 0801 Last data filed at 06/26/2021 0700 Gross per 24 hour Intake 1635 ml Output 820 ml Net 815 ml UOP: 970 mL LABS Recent Labs Lab Units 06/25/21195506/25/2119906/24/21194306/23/21 2150 SODIUM mmol/L 135 135 133* 137 POTASSIUM PLASMA mmol/L 4.9 5.1* 4.8 4.7 CHLORIDE mmol/L 100 101 99 102 CO2 mmol/L 29 29 27 30 ANIONGAP mmol/L 6 5 7 5 GLUCOSE mg/dL 109 108 123 80 BUN SERUM mg/dL 17 14 15 15 CREATININE mg/dL 0.85 0.85 0.79* 0.81 CALCIUM mg/dL 9.4 8.9 9.0 9.0 MAGNESIUM mg/dL 2.0 -- 2.1 2.0 PHOSPHORUS PLASMA mg/dL -- -- 4.0 -- Recent Labs Lab Units 06/25/21195506/24/21194306/23/21 2150 WBC K/cumm 6.3 6.1 6.3 HEMATOCRIT % 33.5* 34.5* 32.6* HEMOGLOBIN g/dL 11.5* 11.8* 11.0* PLATELETS K/cumm 228 252 227 Recent Labs Lab Units 06/24/21 1944 ALK PHOS Units/L 88 BILIRUBIN TOTAL mg/dL 0.2 TOTAL PROTEIN g/dL 6.1* ALBUMIN g/dL 3.0* ALT Units/L 16 AST Units/L 26 Recent Labs Lab Units 06/20/21 0812 PH ART 7.42 PCO2 ART mmHg 43 PO2 ART mmHg 110* HCO3 ART (CALC) mmol/L 29 O2 SAT ART (NANI) % 99* BASE EXC ART mmol/L 3 NEURO IMAGING (Most recent) No new imaging (last HCT 06/15/2021) PHYSICAL EXAM: HEENT: Mucous membranes moist, poor dentition. Sclera anicteric. Cardiac: Irregularly irregular. A-fib. No M/R/G. Pulmonary: Even, unlabored respirations. Symmetric chest rise and fall. Coarse throughout. Abdomen: Rounded but non-distended in appearance, hypoactive bowel sounds, soft/non-tender to palpation. Skin: Warm and dry. NEURO EXAM (of note, patient very [place]) Mental Status Eyes open to verbal call, poor attention span, regards, follows simple commands, oriented to persononly Cranial Nerves PERRL, gaze midline, L ptosis, R nasolabial flattening at rest but activates symmetrically, spontaneous cough, +dysarthria Motor Moves all extremities spontaneously NEUROLOGICAL Meds: ??? MVI 15 mL daily ??? Thiamine 100 mg daily ??? Trazodone 100 mg qHS ??? Ramelteon 8 mg qHS # Traumatic brain injury w/ tSAH/IVH in setting of fall and AC -- s/p Keppra x7 days, seizure precautions -- neuro checks q4h + sleep hygiene -- PT, OT, COTTAGE CHEESE MAKER consults # Encephalopathy - Improving -- suspect multifactorial with alcohol withdrawal (OSH given librium), TBI, hospital admission/delirium, possible Wernicke's -- encephalopathy labs unrevealing: TSH 0.8, Folate > 20, B12 742, RPR non- reactive, HIV non-reactive, hepatitis panel non-reactive, ammonia < 20 -- cEEG (06/12-06/13) negative for seizures; EEG (06/15) negative for seizures -- delirium precautions -- s/p 9 days folic acid, 3 days 500 mg IV q8h, thiamine followed by 250 mg x5 days -- continue MVI daily and thiamine 100 mg daily indefinitely # Insomnia - sleeping per RN -- sleep hygiene ordered -- continue ramelteon at 1800 and trazodone 100 mg qHS CARDIOVASCULAR and HEME Meds: ??? Metoprolol 50 mg BID ??? Pravastatin 40 mg daily TTE (06/13): LA is mildly dilated. Normal RV cavity size and function. LV cavity size is normal. Concentric LV remodeling with normal EF=70-75%. Normal Inferior vena cava. Dilated JOSE RAFAEL=4.7 cm and ascending aorta=3.9 cm. # Atrial fibrillation with RVR -- s/p amio gtt 06/13-06/14; will need outpatient f/u with Panelboard Operator -- previously on amiodarone, discontinued (not optimal medication for this patient to be continued on meterman) -- continue metoprolol 50 mg BID for rate control -- monitor on tele, goal HR<120 -- ensure K+ and Mg adequately repleted -- acute SAH/IVH currently precludes therapeutic anticoagulation (previously on Eliquis); NSGY recommends resuming eliquis 1 month from injury # Chronic systolic HF -- per Cardiology note from 01/25/21: asymptomatic mild LV dysfunction, suspect tachycardia mediated -- previously EF 45-50% (2020), now EF 70-75% as of 06/13 -- continue metoprolol as above -- holding home lisinopril # Possible syncope -- + orthostatic symptoms as outpatient per and + orthostatics at OSH -- TTE unrevealing -- orthostatics positive 06/22 -- continue terazosin at decreased dose of 10 mg daily # History of DVT 2019 -- holding home eliquis (most recently reportedly for a-fib), last dose 06/08 -- LED (06/14) negative for DVT # HTN -- holding home lisinopril 40 mg daily for now -- SBP <160 # HLD -- continue home pravastatin # Macrocytic anemia -- likely 2/2 long-standing alcohol use -- folate/B12 WNL -- CBC daily -- hgb goal >7 PULMONARY Resp Min: 13 Max: 24 SpO2 Min: 91 % Max: 100 % Secretions: thick and copious, able to clear with coughing, no desaturations Oxygen: On HHFT 30% Meds: ??? PRN Albuterol # History of COPD -- extubated 06/18 -- face tent discontinued overnight, now on RA and stable with no suctioning requirements -- cough assist and CPT BID -- SPO2 goal 88-92% -- mobilize as able RENAL Meds: ??? Terazosin 10 mg daily # BPH -- continue home terazosin # Mild hyperkalemia -- possibly related to bactrim -- trend daily BMP GI and ENDO Meds: ??? Protonix 40 mg daily ??? Colace 100 mg daily ??? Senna 8.8 mg BID Diet: Jevity 1.5 at 60 mL/hr IV fluids: SL IV Flushes: None Last BM: 06/23 # Nutrition/Dysphagia -- continue Jevity 1.5 at 60 mL/hr -- COTTAGE CHEESE MAKER planning for MBS today -- start bowel regimen with colace and senna (no BM in a few days) # GERD -- continue PPI INFECTION RELEVANT/MOST RECENT MICRO LAB DATA: ?? Blood cultures (06/14) NG ?? Respiratory culture (06/16): Insignificant growth based on current clinical standards, final ?? COVID-19 RNA (06/12) negative ?? UA (06/12) negative ?? Hepatitis panel (06/12): NG ?? Scrotal abscess cultures (06/17): Abundant Bacteroides fragilis, rare mixed microorganisms (susceptibilities pending) Meds: ??? S/p Clindamycin 600 mg q8h (06/18-06/20 ) ??? Flagyl 500 mg q8h (06/20 - ??? Bactrim 320 mg BID (06/20 - # Bacteroides Fragilis Scrotal abscess with cellulitis # Left hydrocele -- US scrotum (06/17) with left hydrocele and cellulitis -- CT pelvis w contrast (06/17) positive for small left scrotal hydrocele, negative for soft tissue gas, and positive for non-displaced trochanteric fracture -- Urology consulted:10 day course abx and should heal on its own, call if infection appears worse or changes -- clindamycin discontinued -- continue flagyl and bactrim (day #9/10 of abx treatment) -- f/u susceptibilities (sent to [place]), will count clindamycin as treatment days if bacteroides susceptible; if susceptibilities are not back on day 10, will add 2 more days to antibiotic regimen with end date of 06/29 MUSCULOSKELETAL # Left greater trochanteric fracture -- Ortho consulted; WBAT LLE and no need for MRI, can trial mobilization with PT -- GTS has no further workup, accepted for transfer -- due to patient not being able to weight bear, plan to obtain MRI left hip to further assess injury -- Ortho signed off ACCESS Lines ?? PIV x2 ?? Left NG tube Coombs ??? External urinary device VTE Prophylaxis Last Venous Doppler: 06/14/21 negative Prophylaxis: SCDs, SQH 5,000 units q8h CODE STATUS: Full Code Disposition: Transfer to [facility] Trauma floor Cosigned by Mario Chavarria MD at 06/26/2021 6:24 PM CDT Associated attestation - Mario Chavarria MD - 06/26/2021 6:24 PM CDT I personally evaluated and examined the patient with the nurse practitioner. I have reviewed and confirmed the history, physical exam, laboratory and radiographic data with the nurse practitioner as documented in the ICU note. Please refer to my separate progress note for this patient for my assessment and plan. Mario Chavarria MD Neurocritical Care Attending * Clarence Soto MD PhD - 06/26/2021 6:54 AM CDT Neurosurgery Daily Progress Note 06/26/2021 Hospital Course 06/11 Admitted. HCT with stable ventricular size, small IVH in occipital horns. 06/12: TTSDU, then TTICU for persistently depressed mental status. Repeat head CT stable. Metop for Afib w RVR. Started on high dose thiamine. EEG negative, planning for continuous. 06/13 placed on amio gtt for afib w/ RVR; cEEG d/c'd; TTE wnl 06/14 brain MRI w stable small SAH/IVH, no other infarct/lesion. Hypoxemia and desaturation, intubated overnight, HCT stable. 06/15 cEEG w/ mod gen slowing 06/16 joel 06/[address] pelvis w/ left small nondisplaced greater trochanter fracture 06/19 Ortho- WBAT LLE, no need for MRI unless pain w ambulation, s/o. 06/20 JOEL 06/21 JOEL 06/22 JOEL 06/23 Clinical swallow -> COTTAGE CHEESE MAKER rec MBS. 06/24 JOEL 06/25 JOEL Objective Physical Exam: not sedated EO voice, regards, follows commands (squeezes hands) Oriented x2 PERRL, gaze conjugate, face symmetric FC in arms and legs antigravity Vitals: 24hr min/max vitals: Temp Min: 36.2 ??C (97.2 ??F) Max: 36.7 ??C (98.1 ??F) Pulse Min: 68 Max: 101 Resp Min: 13 Max: 24 SpO2 Min: 91 % Max: 100 % MAP (mmHg) Min: 71 Max: 95 Intake and output: I/O last 2 completed shifts: In: 1830 [NG/GT:1830] Out: 855 [Urine:855] Medications: Scheduled Scheduled Medications Medication Dose Route Frequency ??? heparin 5,000 unit/mL injection 5,000 Units 5,000 Units subcutaneous Q8H MONET ??? metoprolol tartrate (LOPRESSOR) immediate release tablet 50 mg 50 mg feeding tube BID ??? metroNIDAZOLE (FLAGYL) tablet 500 mg 500 mg feeding tube Q8H MONET ??? lbhzamjx-srp-ngybzko gluconate (CENTRUM) 0.6 mg iron/mL oral liquid 15 mL 15 mL feeding tube Daily ??? pantoprazole (PROTONIX) 4 mg/mL injection 40 mg 40 mg intravenous Daily ??? pravastatin (PRAVACHOL) tablet 40 mg 40 mg feeding tube Daily ??? ramelteon (ROZEREM) tablet 8 mg 8 mg feeding tube Nightly ??? sodium chloride 0.9% flush 0.5-20 mL 0.5-20 mL intra-catheter Q8H MONET ??? sodium chloride 0.9% flush 0.5-20 mL 0.5-20 mL intra-catheter Q8H MONET ??? sulfamethoxazole-trimethoprim (BACTRIM) 40-8 mg/mL (dosed on TMP component) oral suspension 320mg of trimethoprim 320 mg of trimethoprim feeding tube BID ??? terazosin (HYTRIN) capsule 10 mg 10 mg feeding tube Nightly ??? thiamine (VITAMIN B1) tablet 100 mg 100 mg feeding tube Daily ??? traZODone (DESYREL) tablet 100 mg 100 mg feeding tube Nightly As needed PRN Medications Medication Dose Route Frequency Last Admin ??? acetaminophen (TYLENOL) tablet 650 mg 650 mg feeding tube Q4H PRN 650 mg at 06/18/21 0035 ??? albuterol 2.5 mg/0.5 mL nebulizer solution 1.25 mg 1.25 mg nebulization Q6H PRN (RT) ??? bisacodyL (DULCOLAX) suppository 10 mg 10 mg rectal Daily PRN ??? ondansetron (ZOFRAN) injection 4 mg 4 mg intravenous Q6H PRN ??? sodium chloride 0.9% flush 0.5-20 mL 0.5-20 mL intra-catheter PRN ??? sodium chloride 0.9% flush 0.5-20 mL 0.5-20 mL intra-catheter PRN 10 mL at 06/25/21 0745 Labs: Lab Results Component Value Date SODIUM 135 06/25/2021 SODIUM 135 06/25/2021 SODIUM 133 (L) 06/24/2021 Lab Results Component Value Date GLUCOSE 109 06/25/2021 CALCIUM 9.4 06/25/2021 POTASSIUM 4.9 06/25/2021 CO2 29 06/25/2021 CHLORIDE 100 06/25/2021 BUNSER 17 06/25/2021 CREATININE 0.85 06/25/2021 Lab Results Component Value Date WBC 6.3 06/25/2021 WBC 6.1 06/24/2021 WBC 6.3 06/23/2021 HGB 11.5 (L) 06/25/2021 HGB 11.8 (L) 06/24/2021 HGB 11.0 (L) 06/23/2021 HCT 33.5 (L) 06/25/2021 HCT 34.5 (L) 06/24/2021 HCT 32.6 (L) 06/23/2021 LABPLAT 228 06/25/2021 LABPLAT 252 06/24/2021 LABPLAT 227 06/23/2021 Lab Results Component Value Date INR 1.1 06/11/2021 INR 1.1 07/13/2020 INR 1.6 (H) 02/21/2020 PT 12.5 06/11/2021 PT 12.3 07/13/2020 PT 17.9 (H) 02/21/2020 APTT 31 06/11/2021 APTT 80 (H) 02/20/2020 APTT 26 02/20/2020 No components found for: TROPONIN PT/OT assessment: PT Recommendation/Plan: Half-Way Facility OT Recommendation: Inpatient Rehab Facility Assessment/Plan Hospital Day: 16 Jania Redman is a 71 y.o. year old male who presented with tSAH and small IVH after MGLF. Plan Respiratory care CIWA watch, coming out of window afib watch - rate controlled, chronic No neurosurgical issues currently, tx to medicine floor vs GTS when able to leave ICU, likely today Mobilize, oob Void watch Appreciate ortho recs for femur fracture, wbat, MRI if fails DVT prophylaxis: ok for medical ppx Responsible team (call resident in bold with questions) Vascular Note created by Clarence Soto MD PhD on 06/26/2021 at 6:55 AM. Cosigned by Seth Kiser MD at 07/02/2021 9:03 AM CDT * Mario Chavarria MD - 06/25/2021 11:07 AM CDT Neurocritical Care Attending Progress Note Admission Diagnosis: Acute Traumatic Brain Injury with Subarachnoid Hemorrhage and Intraventricular Hemorrhage, Acute Encephalopathy Overnight Events: We spoke to [facility]tra[facility] yesterday and they were agreeable to take over as primary once he gets to their step down unit. We discontinued his free water flushes yesterday and his sodium only slightly decreased to 135 mEq/L. He continues to breath effectively with no significant suction requirements and no desaturation events. No other acute events overnight. He is sitting up in his bedside chair. He denies chest pain, shortness of breath or abdominal pain. Current Medication List: I reviewed the patient's current active medication list and discussed it with our clinical pharmacist. Vital Signs: Temp: [35.7 ??C (96.3 ??F)-36.9 ??C (98.4 ??F)] 36.4 ??C (97.5 ??F) Pulse: [67-116] 70 BP: (87-138)/(54-121) 118/73 Resp: [13-26] 13 SpO2: [92 %-100 %] 92 % FiO2 (%): [30 %-40 %] 30 % Labs/Microbiology: All laboratory results over the past 24 hours have been personally reviewed within the EMR. Imaging: All imaging over the past 24 hours has been personally reviewed in the EMR. Exam: General: He is sitting up in his bedside chair and breathing comfortably with a high humidity face tent in place. Neuro: He opened eyes to voice and regarded. He sustained attention for 45 to 60 seconds. He remains very hard of hearing (does better with questions on his left side). He was oriented to self only. He reported he was no longer in the hospital. He did not identify the month or year. He had moderatedysarthria. He had midline gaze. His pupils were reactive to light bilaterally (3->2mm). He had full extraocular movements. His eyebrow raise was symmetric. He had L eyelid ptosis. He had decreased nasolabial fold on the right but equal velocity and endpoint of smile bilaterally. He had midline tongue protrusion. He had slight RUE drift, no drift in the LUE and moved his BLE in plane with brief antigravity. Formal testing with 5/5 LUE proximally and distally and 4+/5 RUE proximally and distally. HEENT: sclera anicteric, conjunctiva pink, mucous membranes moist CV: normal S1 and S2, irregular rhythm and normal rate, no murmurs Pulm: good air movement bilaterally, slightly less coarse breath sounds throughout, no wheezing, nocrackles Abdomen: soft, non-distended, non-tender, normoactive bowel sounds Ext: 2+ pulses with trace pitting edema in the BLE. Plan: 1. Traumatic Brain Injury with SAH and Intraventricular Hemorrhage He has sustained his neurologic exam. PT, OT and [employer] will continue to evaluate and treat. We will continue supportive care with neuro checks q4 hours with sleep hygiene. 2. Alcohol Withdrawal Resolved. He is now well outside the window for acute withdrawal. He completed high dose thiamine therapy course and seven days of folic acid therapy. We will continue MVI daily and thiamine 100mg daily indefinitely. 3. ICU Delirium He slept for 6 hours last night. Will continue him on ramelteon 8mg nightly at 1800 to establish a normal sleep/wake cycle and trazodone 100mg qHS to aid with sleep consolidation as well. We continueto provide delirium precautions with frequent re-orientation. 4. Atrial Fibrillation His HR was 70 to 90 bpm again yesterday. We will continue his current metoprolol tartrate 50mg BID.Neurosurgery is ok resuming his apixaban one month post traumatic injury (07/13 at the earliest) for secondary stroke prevention. 5. Heart Failure with reduced Ejection Fraction His LVEF is improved from his baseline of 45-50% up to 70 to 75%. Will continue his beta edmund and maintain clinical euvolemia. We can provide furosemide as needed if he appears volume overloaded. 6. Syncope with Orthostatic Hypotension Still need to re-assess vitals once he is able to stand consistently (his lying to seated vitals are not orthostatic currently) 7. Hypertension His SBP ranged 100 to 140 mmHg again over the past 24 hours. Will continue his metoprolol 50mg BID and terasozin 10mg daily. 8. Hyperlipidemia Will continue his pravastatin 40mg daily. 9. Anemia, Macrocytic His hemoglobin was 11.8 g/dL today. Will continue to maintain Hgb > 7.0 g/dL. 10. At Risk for Altered Respiratory Function He continues to breath comfortably with no significant desaturation events or extra suctioning requirements. We will continue his cough assist and CPT but wean to BID today. We will continue to provide a high humidity face tent at 30% in order to help make his secretions easier to mobilize. He is mobilizing out of bed to chair daily. 11. COPD without exacerbation Will maintain spo2 goal 88 to 92%. He has albuterol and ipratroprium available as needed for acute shortness of breath or wheezing. 12. BPH He is on terazosin 10mg qHS. He is voiding post coombs removal yesterday. 13. Dysphagia due to TBI Will continue his tube feeds at Jevity 1.5 at 60 mL/hr. His sodium was 135 mEq/L today (likely due to getting free water flushes earlier in the morning before stopping). Will simply continue to hold all free water flushes and continue to monitor his BMP daily. [employer] is planning on MBSS early this week. He is having spontaneous bowel movements without requiring a bowel regimen. 14. GERD Will continue his home PPI. 15. Left Trochanteric Fracture Orthopedic surgery evaluated and did not think surgical intervention was needed at this time. They recommended supportive care with PT and OT with weight bearing as tolerated. He has not been able totolerate standing so we did go ahead and order an MRI of the R hip. 16. Bacteroides Fragilis Scrotal Abscess and Cellulitis Urology evaluated and reviewed his CT imaging. They recommended a 10 day course of antibiotics. He is on day 8 of planned 10 day treatment course. He was initially treated with clindamycin before transitioning to bactrim DS BID and metronidazole 500mg q8 hours. Will follow up sensitivities to ensure the days of clindamycin treatment count toward his final antibiotic duration. If he was not sensitive to clindamycin then the end date would be 06/29 (rather than 06/27). 17. Prophylaxis DVT: SCD, SQ heparin 5k q8 hours GI: home PPI Pulm: mobilize, cough assist and CPT QID 18. Lines NGT, PIV x2, external male urinary collection device. 19. Disposition He is awaiting a step down bed on the trauma unit and will transfer to the [facility]- trauma service as primary (rather than neurosurgery) once he leaves the ICU. ??? I personally evaluated and examined the patient on 06/25/2021 at 11:07 AM ??? I discussed the patient's treatment plan with neurosurgery, respiratory therapy, his bedside nurse and the patient. A member of our team will update his family post rounds. ??? I spent 36 minutes in full attendance of the patient's care. Greater than 50% of this time was spent in counseling the patient and coordinating the plan of care. Mario Chavarria MD Neurocritical Care Attending * Patricia Ferrer NP - 06/25/2021 7:06 AM CDT Neuro Critical Care Progress Note Dx: TBI with trace tSAH and IVH, Encephalopathy HPI: 71M HTN/HL, a-fib on Eliquis, HFrEF (45-50% EF 2020), COPD not on home O2, legally blind, and hearing loss admitted with trace tSAH and IVH following a fall. Admitted OSH with altered LOC. Initial CT neg but subsequent MRI with tr SAH/IVH. Tx to [facility] service 06/11 where has remained encephalopathic. Medicine consulted for encephalopathy and felt airway was threatened, hence transfer to ICU06/12. Interval Events: Yesterday -- stopped FWF Overnight -- Na 133. Repeat BMP demonstrated Na 135 Vitals Temp Min: 35.7 ??C (96.3 ??F) Max: 36.9 ??C (98.4 ??F) Pulse Min: 67 Max: 116 NIBP BP Min: 87/59 Max: 138/81 MAP (mmHg) Av.4 Min: 69 Max: 127 A-line No data recorded I/O: Intake/Output Summary (Last 24 hours) at 06/25/2021 0706 Last data filed at 06/25/2021 0700 Gross per 24 hour Intake 1850 ml Output 825 ml Net 1025 ml UOP 825 mL + 1 unmeasured urine LABS Recent Labs Lab Units 06/25/21 0200 06/24/21 1944 06/23/21 2150 06/22/21203706/19/21202506/18/21 2202 SODIUM mmol/L 135 133* 137 138 < > 148* POTASSIUM PLASMA mmol/L 5.1* 4.8 4.7 4.6 < > 3.4 CHLORIDE mmol/L 101 99 102 103 < > 114* CO2 mmol/L 29 27 30 31 < > 27 ANIONGAP mmol/L 5 7 5 4 < > 7 GLUCOSE mg/dL 108 123 80 120 < > 115 BUN SERUM mg/dL 14 15 15 14 < > 14 CREATININE mg/dL 0.85 0.79* 0.81 0.84 < > 0.70* CALCIUM mg/dL 8.9 9.0 9.0 9.3 < > 7.4* MAGNESIUM mg/dL -- 2.1 2.0 2.3 < > 1.8 PHOSPHORUS PLASMA mg/dL -- 4.0 -- -- -- 3.7 < > = values in this interval not displayed. Recent Labs Lab Units 06/24/21194306/23/21214906/[id number]/212037 WBC K/cumm 6.1 6.3 8.1 HEMATOCRIT % 34.5* 32.6* 30.5* HEMOGLOBIN g/dL 11.8* 11.0* 10.7* PLATELETS K/cumm 252 227 198 Recent Labs Lab Units 06/24/21194306/18/21 2202 ALK PHOS Units/L 88 91 BILIRUBIN TOTAL mg/dL 0.2 0.2 TOTAL PROTEIN g/dL 6.1* 5.0* ALBUMIN g/dL 3.0* 2.4* ALT Units/L 16 12 AST Units/L 26 18 Recent Labs Lab Units 06/20/21 0812 PH ART 7.42 PCO2 ART mmHg 43 PO2 ART mmHg 110* HCO3 ART (CALC) mmol/L 29 O2 SAT ART (NANI) % 99* BASE EXC ART mmol/L 3 NEURO IMAGING (Most recent) No new imaging (last HCT 06/15/2021) PHYSICAL EXAM: HEENT: Mucous membranes moist, poor dentition. Sclera anicteric. Cardiac: Irregularly irregular. A-fib. No M/R/G. Pulmonary: Even, unlabored respirations. Symmetric chest rise and fall. Coarse throughout. Abdomen: Rounded but non-distended in appearance, hypoactive bowel sounds, soft/non-tender to palpation. Skin: Warm and dry. NEURO EXAM Mental Status Eyes open to verbal call, poor attention span, regards, followed simple commands, Oriented self only Cranial Nerves PERRL 3-->2, gaze midline, L ptosis, R nasolabial flattening at rest but activates symmetrically, Spontaneous cough, + dysarthria Motor Moves all extremities spontaneously NEUROLOGICAL Meds: ??? MVI 15 ml daily ??? Ramelteon 8 mg qHS ??? Thiamine 100 mg daily ??? Trazodone 100 mg qHS # Traumatic brain injury w/tSAH/IVH in setting of fall and AC -- neuro checks q4h + sleep hygiene -- s/p Keppra x7 days, seizure precautions -- PT, OT, [employer] consults # Encephalopathy, improving -- suspect multifactorial with alcohol withdrawal (OSH given librium), TBI, hospital admission/delirium, possible Wernicke's -- Encephalopathy labs thus far unrevealing: TSH 0.8, Folate > 20, B12 742, RPR non-reactive, HIV non-reactive, hepatitis panel non-reactive, ammonia < 20 -- cEEG (06/12-06/13) negative for seizures; EEG (06/15) negative for seizures -- delirium precautions -- s/p 9 days folic acid, 3 days 500 mg IV q8h, thiamine followed by 250 mg x5 days -- Continue MVI daily and thiamine 100 mg daily indefinitely # Insomnia, slept well overnight -- Sleep hygiene -- ramelteon @ 1800 -- trazodone 100 mg qHS CARDIOVASCULAR and HEME Meds: ??? metoprolol 50 mg BID ??? pravastatin 40 mg daily TTE (06/13): LA is mildly dilated. Normal RV cavity size and function. LV cavity size is normal. Concentric LV remodeling with normal EF=70-75%. Normal Inferior vena cava. Dilated JOSE RAFAEL=4.7 cm and ascending aorta=3.9 cm. # Atrial fibrillation with RVR -- s/p amio gtt 06/13-06/14; f/u with outpatient pharmacovigilance specialist -- d/c amiodarone today (not optimal medication for this patient to be continued on fdc) -- metoprolol 50 mg BID -- monitor on tele; goal HR<120 -- ensure K+ and Mg adequately repleted -- acute SAH/IVH currently precludes therapeutic anticoagulation (previously on Eliquis). NSGY recommends resuming eliquis 1 month from injury # Chronic systolic HF -- per cardiology note 01/25/21: asymptomatic mild LV dysfunction, suspect tachycardia mediated -- previously EF 45-50% (2020), now as of 06/13 EF 70-75% -- discontinued Lasix -- metoprolol 50 mg BID -- holding home lisinopril # Possible syncope -- + orthostatic symptoms as outpatient per and + orthostatics at OSH -- TTE unrevealing -- orthostatics positive 06/22. Terazosin decreased to 10 mg daily # History of DVT 2019 -- holding home Eliquis most recently reportedly for a-fib, last dose 06/08 -- LED (06/14) negative for DVT # HTN -- holding home lisinopril 40 mg daily for now as respiratory status is tenuous -- SBP <160 # HLD -- continue home pravastatin # Macrocytic anemia -- folate/B12 wnl, likely 2/2 long-standing alcohol use -- CBC daily -- hgb goal >7 PULMONARY Resp Min: 15 Max: 26 SpO2 Min: 94 % Max: 100 % Secretions: thick and copious, able to clear with coughing, no desaturations Oxygen: On HHFT 30% Meds: ??? PRN albuterol # History of COPD -- extubated 06/18 -- continue HHFT for humidity -- decrease cough assist and CPT to BID -- SPO2 goal 88-92% -- mobilize as able RENAL Meds: ??? terazosin 10 mg daily # BPH -- continue home terazosin # Mild hyperkalemia -- possibly related to bactrim -- recheck am BMP # Mild hyponatremia -- FWF (most likely culprit) discontinued 06/24 -- trazodone induced started 06/21 and increased 06/23 -- bactrim started 06/20 -- BMP daily GI and ENDO Meds: ??? Protonix 40 mg Daily Diet: Diet, Tube Feeding No Tray Jevity 1.5 veronica (NGT); 60 IV fluids: SLIVF Flushes:discontinue Last BM: 06/23 # Nutrition/Dysphagia -- Continue Jevity 1.5 @ 60 w/ FWF -- [employer] following: planning for MBS Saturday -- increase bowel reg tomorrow if still no BM # Diarrhea -- likely iatrogenic -- afebrile and normal WBC. Will continue to monitor for now -- Hold BR # GERD -- continue PPI INFECTION RELEVANT/MOST RECENT MICRO LAB DATA: ?? Blood cultures (06/14) NG ?? Respiratory culture (06/16): Insignificant growth based on current clinical standards, final ?? COVID-19 RNA (06/12) negative ?? UA (06/12) negative ?? Hepatitis panel (06/12): NG ?? Scrotal abscess cultures (06/17): Abundant Bacteroides fragilis, rare mixed microorganisms (susceptibilities pending) Meds: ??? clindamycin 600 mg q8h (06/18-06/20 ) ??? Flagyl 500 mg Q8H (06/20 - ??? Bactrim BID (06/20 - # Bacteroides Fragilis Scrotal abscess with cellulitis # Left hydrocele -- US scrotum (06/17) with left hydrocele and cellulitis -- CT pelvis w contrast (06/17) positive for small left scrotal hydrocele, negative for soft tissue gas, and positive for non-displaced trochanteric fracture -- Urology consulted:10 day course antbx and should heal on its own, call if infection appears worse or changes -- Clindamycin discontinued, continue Flagyl and Bactrim, f/u susceptibilities (sent to [place]). -- Day 8/10 of total antibiotics (will count clindamycin as treatment days if bacteroides susceptible). If susceptibilities are not back on day 10, will add 2 more days of antibiotic regimen MUSCULOSKELETAL # Left greater trochanteric fracture -- Ortho consulted;WBAT LLE and no need for MRI, can trial mobilization with PT. -- GTS has no further workup. Accepted for transfer to service -- plan to obtain MRI left hip today -- Ortho signed off. ACCESS Lines ?? PIV x2 ?? Left NG tube Coombs ??? External urinary device VTE Prophylaxis Last Venous Doppler: 06/14/2021 negative Prophylaxis: SCDs, SQH 5,000 units q8h CODE STATUS: Full Code Disposition: TTSDU with [facility] trauma Cosigned by Mario Chavarria MD at 06/25/2021 4:29 PM CDT Associated attestation - Mario Chavarria MD - 06/25/2021 4:29 PM CDT I personally evaluated and examined the patient with the nurse practitioner. I have reviewed and confirmed the history, physical exam, laboratory and radiographic data with the nurse practitioner as documented in the ICU note. Please refer to my separate progress note for this patient for my assessment and plan. Mario Chavarria MD Neurocritical Care Attending * Bradley Sierra MD - 06/25/2021 6:56 AM CDT Neurosurgery Daily Progress Note 06/25/2021 Hospital Course 06/11 Admitted. HCT with stable ventricular size, small IVH in occipital horns. 06/12: TTSDU, then TTICU for persistently depressed mental status. Repeat head CT stable. Metop for Afib w RVR. Started on high dose thiamine. EEG negative, planning for continuous. 06/13 placed on amio gtt for afib w/ RVR; cEEG d/c'd; TTE wnl 06/14 brain MRI w stable small SAH/IVH, no other infarct/lesion. Hypoxemia and desaturation, intubated overnight, HCT stable. 06/15 cEEG w/ mod gen slowing 06/16 joel 06/[address] pelvis w/ left small nondisplaced greater trochanter fracture 06/19 Ortho- WBAT LLE, no need for MRI unless pain w ambulation, s/o. 06/20 JOEL 06/21 JOEL 06/22 JOEL 06/23 Clinical swallow -> [employer] rec MBS. 06/24 JOEL Objective Physical Exam: not sedated, on HH face tent EO voice, regards, follows commands (wiggles toes) Oriented x2 PERRL, gaze conjugate, face symmetric FC in arms and legs antigravity Vitals: 24hr min/max vitals: Temp Min: 35.7 ??C (96.3 ??F) Max: 36.9 ??C (98.4 ??F) Pulse Min: 67 Max: 116 Resp Min: 15 Max: 26 SpO2 Min: 94 % Max: 100 % MAP (mmHg) Min: 69 Max: 127 Intake and output: I/O last 2 completed shifts: In: 1880 [NG/GT:1870; IV Piggyback:10] Out: 1250 [Urine:1250] Medications: Scheduled Scheduled Medications Medication Dose Route Frequency ??? heparin 5,000 unit/mL injection 5,000 Units 5,000 Units subcutaneous Q8H MONET ??? metoprolol tartrate (LOPRESSOR) immediate release tablet 50 mg 50 mg feeding tube BID ??? metroNIDAZOLE (FLAGYL) tablet 500 mg 500 mg feeding tube Q8H MONET ??? kizeopch-amx-srpyqru gluconate (CENTRUM) 0.6 mg iron/mL oral liquid 15 mL 15 mL feeding tube Daily ??? pantoprazole (PROTONIX) 4 mg/mL injection 40 mg 40 mg intravenous Daily ??? pravastatin (PRAVACHOL) tablet 40 mg 40 mg feeding tube Daily ??? ramelteon (ROZEREM) tablet 8 mg 8 mg feeding tube Nightly ??? sodium chloride 0.9% flush 0.5-20 mL 0.5-20 mL intra-catheter Q8H MONET ??? sodium chloride 0.9% flush 0.5-20 mL 0.5-20 mL intra-catheter Q8H MONET ??? sulfamethoxazole-trimethoprim (BACTRIM) 40-8 mg/mL (dosed on TMP component) oral suspension 320mg of trimethoprim 320 mg of trimethoprim feeding tube BID ??? terazosin (HYTRIN) capsule 10 mg 10 mg feeding tube Nightly ??? thiamine (VITAMIN B1) tablet 100 mg 100 mg feeding tube Daily ??? traZODone (DESYREL) tablet 100 mg 100 mg feeding tube Nightly As needed PRN Medications Medication Dose Route Frequency Last Admin ??? acetaminophen (TYLENOL) tablet 650 mg 650 mg feeding tube Q4H PRN 650 mg at 06/18/21 0035 ??? albuterol 2.5 mg/0.5 mL nebulizer solution 1.25 mg 1.25 mg nebulization Q6H PRN (RT) ??? bisacodyL (DULCOLAX) suppository 10 mg 10 mg rectal Daily PRN ??? ondansetron (ZOFRAN) injection 4 mg 4 mg intravenous Q6H PRN ??? sodium chloride 0.9% flush 0.5-20 mL 0.5-20 mL intra-catheter PRN ??? sodium chloride 0.9% flush 0.5-20 mL 0.5-20 mL intra-catheter PRN Labs: Lab Results Component Value Date SODIUM 135 06/25/2021 SODIUM 133 (L) 06/24/2021 SODIUM 137 06/23/2021 Lab Results Component Value Date GLUCOSE 108 06/25/2021 CALCIUM 8.9 06/25/2021 POTASSIUM 5.1 (H) 06/25/2021 CO2 29 06/25/2021 CHLORIDE 101 06/25/2021 BUNSER 14 06/25/2021 CREATININE 0.85 06/25/2021 Lab Results Component Value Date WBC 6.1 06/24/2021 WBC 6.3 06/23/2021 WBC 8.1 06/22/2021 HGB 11.8 (L) 06/24/2021 HGB 11.0 (L) 06/23/2021 HGB 10.7 (L) 06/22/2021 HCT 34.5 (L) 06/24/2021 HCT 32.6 (L) 06/23/2021 HCT 30.5 (L) 06/22/2021 LABPLAT 252 06/24/2021 LABPLAT 227 06/23/2021 LABPLAT 198 06/22/2021 Lab Results Component Value Date INR 1.1 06/11/2021 INR 1.1 07/13/2020 INR 1.6 (H) 02/21/2020 PT 12.5 06/11/2021 PT 12.3 07/13/2020 PT 17.9 (H) 02/21/2020 APTT 31 06/11/2021 APTT 80 (H) 02/20/2020 APTT 26 02/20/2020 No components found for: TROPONIN PT/OT assessment: PT Recommendation/Plan: [facility] Facility OT Recommendation: Inpatient Rehab Facility Assessment/Plan Hospital Day: 15 Jania Redman is a 71 y.o. year old male who presented with tSAH and small IVH after MGLF. Plan Respiratory care CIWA watch, coming out of window afib watch - rate controlled, chronic No neurosurgical issues currently, tx to medicine floor when able to leave ICU Mobilize, oob Void watch Appreciate ortho recs for femur fracture, wbat, MRI if fails DVT prophylaxis: ok for medical ppx Responsible team (call resident in bold with questions) Vascular Note created by Bradley Sierra MD on 06/25/2021 at 6:56 AM. Cosigned by Joshua Madrid MD at 06/26/2021 9:42 PM CDT * Mario Chavarria MD - 06/24/2021 12:29 PM CDT Neurocritical Care Attending Progress Note Admission Diagnosis: Acute Traumatic Brain Injury with Subarachnoid Hemorrhage and Intraventricular Hemorrhage, Acute Encephalopathy Overnight Events: He continued to breath comfortably on high humidity face tent. We decreased his cough assist and CPT to TID yesterday. He did not have any significant desaturation events. He has not required any additional suctioning outside of his scheduled treatments. He reportedly slept well overnight. No otheracute events overnight. He was not reliable in providing his own HPI. Current Medication List: I reviewed the patient's current active medication list and discussed it with our clinical pharmacist. Vital Signs: Temp: [36.3 ??C (97.3 ??F)-37.3 ??C (99.1 ??F)] 36.3 ??C (97.3 ??F) Pulse: [67-103] 67 BP: (91-149)/(53-104) 110/64 Resp: [15-26] 16 SpO2: [94 %-100 %] 100 % FiO2 (%): [40 %] 40 % Labs/Microbiology: All laboratory results over the past 24 hours have been personally reviewed within the EMR. Imaging: All imaging over the past 24 hours has been personally reviewed in the EMR. Exam: General: Sitting up in his bedside chair and sleeping. Wakes to voice. He is breathing comfortably on high humidity face tent. Moderate strength cough. Neuro: He opened eyes to voice and regarded. He sustained attention for about a minute. He is very hard of hearing (does better with questions on his left side). He was oriented to self only. He reported he was no longer in the hospital. He did not identify the month or year. He had moderate dysarthria. He had midline gaze. His pupils were reactive to light bilaterally (3->2mm). He had full extraocular movements. His eyebrow raise was symmetric. He had L eyelid ptosis. He had decreased nasolabial fold on the right but equal velocity and endpoint of smile bilaterally. He had midline tongue protrusion. He had slight RUE drift, no drift in the LUE and no drift in the BLE. Formal testing with 5/5 LUE proximally and distally and 4+/5 RUE proximally and distally. HEENT: sclera anicteric, conjunctiva pink, mucous membranes moist CV: normal S1 and S2, irregular rhythm and normal rate, no murmurs Pulm: good air movement bilaterally, coarse breath sounds throughout with upper airway noise that improves with coughing, no wheezing, no crackles Abdomen: soft, non-distended, non-tender, normoactive bowel sounds Ext: 2+ pulses with trace pitting edema in the BLE. Plan: 1. Traumatic Brain Injury with SAH and Intraventricular Hemorrhage His neurologic exam this morning is similar to his exam yesterday. Will continue supportive care with PT, OT and [employer]. Neuro checks are being followed q4 hours with sleep hygiene. 2. Alcohol Withdrawal Resolved and well outside the window for acute withdrawal at this time. His last benzodiazepine dose was on 06/12. He completed high dose thiamine therapy course and seven days of folic acid therapy. Will MVI daily and thiamine 100mg daily indefinitely. 3. ICU Delirium Reportedly slept better last night. He will remain on ramelteon 8mg nightly at 1800 to establish a normal sleep/wake cycle. We will continue trazodone 100mg qHS to aid with sleep consolidation as well. He will remain on delirium precautions while we provide frequent re-orientation. 4. Atrial Fibrillation His HR was primarily 70 to 90 bpm yesterday. He will remain on metoprolol tartrate 50mg BID. Neurosurgery is ok resuming his apixaban one month post traumatic injury (so on 07/13 at the earliest) for secondary stroke prevention. 5. Heart Failure with reduced Ejection Fraction His LVEF is improved from his baseline of 45-50% up to 70 to 75%. Will continue his beta edmund and maintain clinical euvolemia. Still plan to provide as needed diuresis to maintain clinical euvolemia. We discontinued his scheduled furosemide given his orthostatic hypotension on arrival. 6. Syncope with Orthostatic Hypotension Still need to re-assess vitals once he is able to stand consistently (his lying to seated vitals are not orthostatic currently) 7. Hypertension His SBP ranged 100 to 140 mmHg yesterday. Will continue his metoprolol 50mg BID and terasozin 10mg daily. 8. Hyperlipidemia Will continue his pravastatin 40mg daily. 9. Anemia, Macrocytic His hemoglobin was 11.0 g/dL today. Will continue to maintain Hgb > 7.0 g/dL. 10. At Risk for Altered Respiratory Function He did not have any significant desaturation events. His cough is slowly improving. Will continue his CPT and cough assist TID given his oropharyngeal weakness. He will continue to have a high humidity face tent in order to help make his secretions easier to mobilize. He is mobilizing out of bed tochair daily. 11. COPD without exacerbation Will maintain spo2 goal 88 to 92%. He has albuterol and ipratroprium available as needed for acute shortness of breath or wheezing. 12. BPH Continuing 10mg qHS. He is voiding post coombs removal yesterday. 13. Dysphagia due to TBI Doing well on Jevity 1.5 at 60 mL/hr. His sodium is down trending and was 137 mEq/L today so we will stop his current free water flushes. [employer] is planning on MBSS early this week. He is having spontaneous bowel movements without requiring a bowel regimen. 14. GERD Will continue his home PPI. 15. Left Trochanteric Fracture Orthopedic surgery evaluated and did not think surgical intervention was needed at this time. They recommended supportive care with PT and OT with weight bearing as tolerated. If he starts to have pain then they want to pursue an MRI of the hip. 16. Bacteroides Fragilis Scrotal Abscess and Cellulitis Urology evaluated and reviewed his CT imaging. They recommended a 10 day course of antibiotics. He is on day 7 of planned 10 day treatment course. He was initially treated with clindamycin before transitioning to bactrim DS BID and metronidazole 500mg q8 hours. Will follow up sensitivities to ensure the days of clindamycin treatment count toward his final antibiotic duration. If he was not sensitive to clindamycin then the end date would be 06/29 (rather than 06/27). 17. Prophylaxis DVT: SCD, SQ heparin 5k q8 hours GI: home PPI Pulm: mobilize, cough assist and CPT QID 18. Lines NGT, PIV x2, external male urinary collection device. 19. Disposition I still think he would do best in a step down unit setting given his respiratory care needs. Would recommend transfer to the neurosurgery step down unit or [facility]- trauma step down unit (neurosurgery isworking on transfer of service line). ??? I personally evaluated and examined the patient on 06/24/2021 at 12:29 PM ??? I discussed the patient's treatment plan with neurosurgery, respiratory therapy, his bedside nurse and the patient. A member of our team will update his family post rounds. ??? I spent 38 minutes in full attendance of the patient's care. Greater than 50% of this time was spent in counseling the patient and coordinating the plan of care. Mario Chavarria MD Neurocritical Care Attending * Patricia Ferrer NP - 06/24/2021 7:44 AM CDT Neuro Critical Care Progress Note Dx: TBI with trace tSAH and IVH, Encephalopathy HPI: 71M HTN/HL, a-fib on Eliquis, HFrEF (45-50% EF 2020), COPD not on home O2, legally blind, and hearing loss admitted with trace tSAH and IVH following a fall. Admitted OSH with altered LOC. Initial CT neg but subsequent MRI with tr SAH/IVH. Tx to [facility] NSGY service 06/11 where has remained encephalopathic. Medicine consulted for encephalopathy and felt airway was threatened, hence transfer to ICU06/12. Interval Events: -- [facility] NSGY eliquis timin month from injury -- terazosin decreased 10 mg daily, lasix discontinued -- trazodone increased to 100 mg daily -- CPT and cough assist decreased TID Vitals Temp Min: 36.4 ??C (97.5 ??F) Max: 37.3 ??C (99.1 ??F) Pulse Min: 67 Max: 97 NIBP BP Min: 91/53 Max: 149/92 MAP (mmHg) Av.2 Min: 62 Max: 118 A-line No data recorded I/O: Intake/Output Summary (Last 24 hours) at 06/24/2021 0744 Last data filed at 06/24/2021 0700 Gross per 24 hour Intake 1710 ml Output 1925 ml Net -215 ml UOP 1952 mL + 3 episodes of unmeasured urine LABS Recent Labs Lab Units 06/23/21214906/22/21203706/21/21210506/19/21202506/18/21220106/17/21220206/17/21 0817 SODIUM mmol/L 137 138 140 < > 148* 147* 144 POTASSIUM PLASMA mmol/L 4.7 4.6 4.3 < > 3.4 4.3 4.3 CHLORIDE mmol/L 102 103 102 < > 114* 110 110 CO2 mmol/L 30 31 29 < > 27 31 30 ANIONGAP mmol/L 5 4 9 < > 7 6 4 GLUCOSE mg/dL 80 120 113 < > 115 152 150 BUN SERUM mg/dL 15 14 14 < > 14 17 17 CREATININE mg/dL 0.81 0.84 0.87 < > 0.70* 0.80 0.79* CALCIUM mg/dL 9.0 9.3 8.9 < > 7.4* 8.8 8.6 MAGNESIUM mg/dL 2.0 2.3 2.6* < > 1.8 2.3 2.7* PHOSPHORUS PLASMA mg/dL -- -- -- -- 3.7 3.3 2.9 < > = values in this interval not displayed. Recent Labs Lab Units 06/23/21214906/22/21203706/21/212105 WBC K/cumm 6.3 8.1 9.4 HEMATOCRIT % 32.6* 30.5* 36.0* HEMOGLOBIN g/dL 11.0* 10.7* 12.2* PLATELETS K/cumm 227 198 227 Recent Labs Lab Units 06/18/212201 ALK PHOS Units/L 91 BILIRUBIN TOTAL mg/dL 0.2 TOTAL PROTEIN g/dL 5.0* ALBUMIN g/dL 2.4* ALT Units/L 12 AST Units/L 18 Recent Labs Lab Units 06/20/21 0812 06/17/21 2203 PH ART 7.42 7.45 PCO2 ART mmHg 43 41 PO2 ART mmHg 110* 170* HCO3 ART (CALC) mmol/L 29 30 O2 SAT ART (NANI) % 99* 99* BASE EXC ART mmol/L 3 4 NEURO IMAGING (Most recent) No new imaging (last HCT 06/15/2021) PHYSICAL EXAM: HEENT: Mucous membranes moist, poor dentition. Sclera anicteric. Cardiac: Irregularly irregular. A-fib. No M/R/G. Pulmonary: Even, unlabored respirations. Symmetric chest rise and fall. Coarse throughout. Abdomen: Rounded but non-distended in appearance, hypoactive bowel sounds, soft/non-tender to palpation. Skin: Warm and dry. NEURO EXAM Mental Status Eyes open to verbal call, poor attention span, regards, followed simple commands, Oriented self only Cranial Nerves PERRL 3-->2, gaze midline, L ptosis, R nasolabial flattening at rest but activates symmetrically, Spontaneous cough, + dysarthria Motor Moves all extremities spontaneously NEUROLOGICAL Meds: ??? MVI 15 ml daily ??? Ramelteon 8 mg qHS ??? Thiamine 100 mg daily ??? Trazodone 100 mg qHS # Traumatic brain injury w/tSAH/IVH in setting of fall and AC -- neuro checks q4h + sleep hygiene -- s/p Keppra x7 days, seizure precautions -- PT, OT, [employer] consults # Encephalopathy, improving -- suspect multifactorial with alcohol withdrawal (OSH given librium), TBI, hospital admission/delirium, possible Wernicke's -- Encephalopathy labs thus far unrevealing: TSH 0.8, Folate > 20, B12 742, RPR non-reactive, HIV non-reactive, hepatitis panel non-reactive, ammonia < 20 -- cEEG (06/12-06/13) negative for seizures; EEG (06/15) negative for seizures -- delirium precautions -- s/p 9 days folic acid, 3 days 500 mg IV q8h, thiamine followed by 250 mg x5 days -- Continue MVI daily and thiamine 100 mg daily indefinitely # Insomnia -- Sleep hygiene -- stephani @ 1800 -- trazodone 100 mg qHS CARDIOVASCULAR and HEME Meds: ??? metoprolol 50 mg BID ??? pravastatin 40 mg daily TTE (06/13): LA is mildly dilated. Normal RV cavity size and function. LV cavity size is normal. Concentric LV remodeling with normal EF=70-75%. Normal Inferior vena cava. Dilated JOSE RAFAEL=4.7 cm and ascending aorta=3.9 cm. # Atrial fibrillation with RVR -- s/p amio gtt 06/13-06/14; f/u with outpatient pharmacovigilance specialist -- d/c amiodarone today (not optimal medication for this patient to be continued on fdc) -- metoprolol 50 mg BID -- monitor on tele; goal HR<120 -- ensure K+ and Mg adequately repleted -- acute SAH/IVH currently precludes therapeutic anticoagulation (previously on Eliquis). NSGY recommends resuming eliquis 1 month from injury # Chronic systolic HF -- per cardiology note 01/25/21: asymptomatic mild LV dysfunction, suspect tachycardia mediated -- previously EF 45-50% (2020), now as of 06/13 EF 70-75% -- discontinued Lasix -- metoprolol 50 mg BID -- holding home lisinopril # Possible syncope -- + orthostatic symptoms as outpatient per and + orthostatics at OSH -- TTE unrevealing -- orthostatics positive 06/22. Plan to decrease terazosin from 20 mg to 10 mg daily # History of DVT 2019 -- holding home Eliquis most recently reportedly for a-fib, last dose 06/08 -- LED (06/14) negative for DVT # HTN -- holding home lisinopril 40 mg daily for now as respiratory status is tenuous -- SBP <160 # HLD -- continue home pravastatin # Macrocytic anemia -- folate/B12 wnl, likely 2/2 long-standing alcohol use -- CBC daily -- hgb goal >7 PULMONARY Resp Min: 15 Max: 26 SpO2 Min: 94 % Max: 100 % Secretions: thick and copious, able to clear with coughing, no desaturations Oxygen: On HHFT 40% Meds: ??? PRN albuterol # History of COPD -- extubated 06/18 -- continue HHFT for humidity -- decreased cough assist and CPT to TID -- SPO2 goal 88-92% -- mobilize as able RENAL Meds: ??? terazosin 10 mg daily # BPH -- continue home terazosin # Hypernatremia/hyperchloremia, stable -- QBW104 ml q6h --> discontinue GI and ENDO Meds: ??? Protonix 40 mg Daily Diet: Diet, Tube Feeding No Tray Jevity 1.5 veronica (NGT); 60; 100; Water; Every 6 hours IV fluids: SLIVF Flushes:discontinue Last BM: 06/23 x1, 06/22 2 --> loose stools # Nutrition/Dysphagia -- Continue Jevity 1.5 @ 60 w/ FWF -- [employer] following: planning for MBS saturday # Diarrhea -- likely iatrogenic -- afebrile and normal WBC. Will continue to monitor for now -- Hold BR # GERD -- continue PPI INFECTION RELEVANT/MOST RECENT MICRO LAB DATA: ?? Blood cultures (06/14) NG ?? Respiratory culture (06/16): Insignificant growth based on current clinical standards, final ?? COVID-19 RNA (06/12) negative ?? UA (06/12) negative ?? Hepatitis panel (06/12): NG ?? Scrotal abscess cultures (06/17): Abundant Bacteroides fragilis, rare mixed microorganisms (susceptibilities pending) Meds: ??? clindamycin 600 mg q8h (06/18-06/20 ) ??? Flagyl 500 mg Q8H (06/20 - ??? Bactrim BID (06/20 - # Bacteroides Fragilis Scrotal abscess with cellulitis # Left hydrocele -- US scrotum (06/17) with left hydrocele and cellulitis -- CT pelvis w contrast (06/17) positive for small left scrotal hydrocele, negative for soft tissue gas, and positive for non-displaced trochanteric fracture -- Urology consulted:10 day course antbx and should heal on its own, call if infection appears worse or changes -- Clindamycin discontinued, continue Flagyl and Bactrim, f/u susceptibilities (sent to [place]). If susceptibilities are not back on day 10, will add 2 more days of antibiotic regimen -- Day 7/10 of antibiotics (will count clindamycin as treatment days if bacteroides susceptible). MUSCULOSKELETAL # Left greater trochanteric fracture -- Ortho consulted;WBAT LLE and no need for MRI, can trial mobilization with PT. If fails due to pain can get MRI of L hip. -- Ortho signed off. ACCESS Lines ?? PIV x2 ?? Left NG tube Coombs ??? External urinary device VTE Prophylaxis Last Venous Doppler: 06/14/2021 negative Prophylaxis: SCDs, SQH 5,000 units q8h CODE STATUS: Full Code Disposition: TTSDU Cosigned by Mario Chavarria MD at 06/24/2021 5:17 PM CDT Associated attestation - Mario Chavarria MD - 06/24/2021 5:17 PM CDT I personally evaluated and examined the patient with the nurse practitioner. I have reviewed and confirmed the history, physical exam, laboratory and radiographic data with the nurse practitioner as documented in the ICU note. Please refer to my separate progress note for this patient for my assessment and plan. Mario Chavarria MD Neurocritical Care Attending * Bradley Sierra MD - 06/24/2021 7:29 AM CDT Neurosurgery Daily Progress Note 06/24/2021 Hospital Course 06/11 Admitted. HCT with stable ventricular size, small IVH in occipital horns. 06/12: TTSDU, then TTICU for persistently depressed mental status. Repeat head CT stable. Metop for Afib w RVR. Started on high dose thiamine. EEG negative, planning for continuous. 06/13 placed on amio gtt for afib w/ RVR; cEEG d/c'd; TTE wnl 06/14 brain MRI w stable small SAH/IVH, no other infarct/lesion. Hypoxemia and desaturation, intubated overnight, HCT stable. 06/15 cEEG w/ mod gen slowing 06/16 joel 06/[address] pelvis w/ left small nondisplaced greater trochanter fracture 06/19 Ortho- WBAT LLE, no need for MRI unless pain w ambulation, s/o. 06/20 JOEL 06/21 JOEL 06/22 JOEL 06/23 Clinical swallow -> [employer] rec MBS. Objective Physical Exam: not sedated, on HH face tent EO voice, regards, follows commands (wiggles toes) Oriented x1 PERRL, gaze conjugate, face symmetric FC in arms and legs antigravity Vitals: 24hr min/max vitals: Temp Min: 36.4 ??C (97.5 ??F) Max: 37.3 ??C (99.1 ??F) Pulse Min: 67 Max: 97 Resp Min: 15 Max: 26 SpO2 Min: 94 % Max: 100 % MAP (mmHg) Min: 62 Max: 118 Intake and output: I/O last 2 completed shifts: In: 1709 [NG/GT:1709] Out: 1924 [Urine:1924] Medications: Scheduled Scheduled Medications Medication Dose Route Frequency ??? heparin 5,000 unit/mL injection 5,000 Units 5,000 Units subcutaneous Q8H MONET ??? metoprolol tartrate (LOPRESSOR) immediate release tablet 50 mg 50 mg feeding tube BID ??? metroNIDAZOLE (FLAGYL) tablet 500 mg 500 mg feeding tube Q8H MONET ??? lvtfquse-hbw-cepuuog gluconate (CENTRUM) 0.6 mg iron/mL oral liquid 15 mL 15 mL feeding tube Daily ??? pantoprazole (PROTONIX) 4 mg/mL injection 40 mg 40 mg intravenous Daily ??? pravastatin (PRAVACHOL) tablet 40 mg 40 mg feeding tube Daily ??? ramelteon (ROZEREM) tablet 8 mg 8 mg feeding tube Nightly ??? sodium chloride 0.9% flush 0.5-20 mL 0.5-20 mL intra-catheter Q8H MONET ??? sodium chloride 0.9% flush 0.5-20 mL 0.5-20 mL intra-catheter Q8H MONET ??? sulfamethoxazole-trimethoprim (BACTRIM) 40-8 mg/mL (dosed on TMP component) oral suspension 320mg of trimethoprim 320 mg of trimethoprim feeding tube BID ??? terazosin (HYTRIN) capsule 10 mg 10 mg feeding tube Nightly ??? thiamine (VITAMIN B1) tablet 100 mg 100 mg feeding tube Daily ??? traZODone (DESYREL) tablet 100 mg 100 mg feeding tube Nightly As needed PRN Medications Medication Dose Route Frequency Last Admin ??? acetaminophen (TYLENOL) tablet 650 mg 650 mg feeding tube Q4H PRN 650 mg at 06/18/21 0035 ??? albuterol 2.5 mg/0.5 mL nebulizer solution 1.25 mg 1.25 mg nebulization Q6H PRN (RT) ??? bisacodyL (DULCOLAX) suppository 10 mg 10 mg rectal Daily PRN ??? ondansetron (ZOFRAN) injection 4 mg 4 mg intravenous Q6H PRN ??? sodium chloride 0.9% flush 0.5-20 mL 0.5-20 mL intra-catheter PRN ??? sodium chloride 0.9% flush 0.5-20 mL 0.5-20 mL intra-catheter PRN Labs: Lab Results Component Value Date SODIUM 137 06/23/2021 SODIUM 138 06/22/2021 SODIUM 140 06/21/2021 Lab Results Component Value Date GLUCOSE 80 06/23/2021 CALCIUM 9.0 06/23/2021 POTASSIUM 4.7 06/23/2021 CO2 30 06/23/2021 CHLORIDE 102 06/23/2021 BUNSER 15 06/23/2021 CREATININE 0.81 06/23/2021 Lab Results Component Value Date WBC 6.3 06/23/2021 WBC 8.1 06/22/2021 WBC 9.4 06/21/2021 HGB 11.0 (L) 06/23/2021 HGB 10.7 (L) 06/22/2021 HGB 12.2 (L) 06/21/2021 HCT 32.6 (L) 06/23/2021 HCT 30.5 (L) 06/22/2021 HCT 36.0 (L) 06/21/2021 LABPLAT 227 06/23/2021 LABPLAT 198 06/22/2021 LABPLAT 227 06/21/2021 Lab Results Component Value Date INR 1.1 06/11/2021 INR 1.1 07/13/2020 INR 1.6 (H) 02/21/2020 PT 12.5 06/11/2021 PT 12.3 07/13/2020 PT 17.9 (H) 02/21/2020 APTT 31 06/11/2021 APTT 80 (H) 02/20/2020 APTT 26 02/20/2020 No components found for: TROPONIN PT/OT assessment: PT Recommendation/Plan: Half-Way Facility OT Recommendation: Inpatient Rehab Facility Assessment/Plan Hospital Day: 14 Jania Redman is a 71 y.o. year old male who presented with tSAH and small IVH after MGLF. Plan Respiratory care CIWA watch, coming out of window afib watch - rate controlled, chronic No neurosurgical issues currently, tx to medicine floor when able to leave ICU Mobilize, oob Void watch Appreciate ortho recs for femur fracture, wbat, MRI if fails DVT prophylaxis: ok for medical ppx Responsible team (call resident in bold with questions) Vascular Note created by Bradley Sierra MD on 06/24/2021 at 7:29 AM. Cosigned by Girma Lucas MD at 06/26/2021 10:48 AM CDT * Mario Chavarria MD - 06/23/2021 10:52 AM CDT Neurocritical Care Attending Progress Note Admission Diagnosis: Acute Traumatic Brain Injury with Subarachnoid Hemorrhage and Intraventricular Hemorrhage, Acute Encephalopathy Overnight Events: He continued to breath comfortably and did well with his ongoing cough assist and CPT QID. We triedto perform orthostatic vital signs but he was unable to complete standing vitals. He was not orthostatic when going from lying to sitting position. No other acute events overnight. He opened eyes to voice today. He denied any headache, shortness of breath or chest pain. Current Medication List: I reviewed the patient's current active medication list and discussed it with our clinical pharmacist. Vital Signs: Temp: [36.3 ??C (97.3 ??F)-37.2 ??C (99 ??F)] 36.5 ??C (97.7 ??F) Pulse: [69-96] 71 BP: (96-145)/(63-118) 119/81 Resp: [14-29] 18 SpO2: [93 %-100 %] 100 % FiO2 (%): [40 %] 40 % Labs/Microbiology: All laboratory results over the past 24 hours have been personally reviewed within the EMR. Imaging: All imaging over the past 24 hours has been personally reviewed in the EMR. Exam: General: Lying in bed sleeping but opens his eyes to voice. He is breathing comfortably with high humidity face tent below his chin. Neuro: He opened eyes to voice and regarded. He sustained attention for about a minute. He is very hard of hearing (does better with questions on his left side). He was oriented to self and hospital (but not which hospital). He was oriented to month as well (3rd month) but not the year ('72). He had moderate dysarthria. He had midline gaze. His pupils were reactive to light bilaterally (3->2mm). He had full extraocular movements. His eyebrow raise was symmetric. He had L eyelid ptosis. He had decreased nasolabial fold on the right but equal velocity and endpoint of smile bilaterally. He had midline tongue protrusion. He had slight RUE drift, no drift in the LUE and no drift in the BLE. Formal testing with 5/5 LUE proximally and distally and 4+/5 RUE proximally and distally. HEENT: sclera anicteric, conjunctiva pink, mucous membranes moist CV: normal S1 and S2, irregular rhythm and normal rate, no murmurs Pulm: good air movement bilaterally with coarse breath sounds throughout with upper airway noise that improves with coughing, no wheezing, no crackles Abdomen: soft, non-distended, non-tender, normoactive bowel sounds Ext: 2+ pulses with trace pitting edema in the BLE. Plan: 1. Traumatic Brain Injury with SAH and Intraventricular Hemorrhage No significant change in his neurologic exam this morning. Will continue supportive care. PT, OT and [employer] are evaluating and treating. Will continue neuro checks q4 hours with sleep hygiene. 2. Alcohol Withdrawal This resolved and he is now outside the window for acute withdrawal. Last benzodiazepine dose was 06/12. He completed high dose thiamine therapy course and will remain on 100mg thiamine daily. He completed seven days of folic acid 1mg daily. We will continue daily MVI indefinitely. 3. ICU Delirium Slept some but not as well last night as the day prior. Will continue ramelteon 8mg nightly at 1800to establish a normal sleep/wake cycle and increase his trazodone to 100mg qHS for sleep consolidation as well. Will continue delirium precautions and frequent re-orientation. 4. Atrial Fibrillation His HR has ranged 70 to 90 bpm. We will continue metoprolol tartrate 50mg BID. His apixaban is on hold but will need to be resumed eventually for secondary stroke prevention once ok from a neurosurgical perspective. 5. Heart Failure with reduced Ejection Fraction His LVEF is improved from his baseline of 45-50% up to 70 to 75%. Will continue his beta edmund and maintain clinical euvolemia. We stopped scheduled furosemide yesterday given his recent orthostatic hypotension. Will provide as needed diuresis to maintain clinical euvolemia. 6. Syncope with Orthostatic Hypotension Only able to take lying and seated vitals yesterday as he was unable to stand effectively long enough to test. Will hold his furosemide and decrease his tamsulosin back to home dose of 10mg daily as noted below. Will need to re- assess vitals once he is able to stand. 7. Hypertension His SBP ranged 100 to 130 mmHg yesterday. Will continue his metoprolol 50mg BID and decrease his terasozin to 10mg daily as discussed below. 8. Hyperlipidemia Will continue his pravastatin 40mg daily. 9. Anemia, Macrocytic His hemoglobin was 10.7 g/dL today. Will continue to monitor his CBC daily and maintain Hgb > 7.0 g/dL. 10. At Risk for Altered Respiratory Function No significant desaturation events and his cough continues to get stronger. Will change his cough assist and CPT to TID today. We will continue his high humidity face tent to help his secretions mobilize more easily. He is mobilizing out of bed to chair daily. 11. COPD without exacerbation Will maintain spo2 goal 88 to 92%. He has albuterol and ipratroprium available as needed for acute shortness of breath or wheezing. 12. BPH We are going to decrease his terasozin to 10mg qHS today given his orthostatic hypotension on arrival. He is voiding post coombs removal yesterday. 13. Dysphagia due to TBI Will continue his tube feeds with Jevity 1.5 at 60 mL/hr with free water flushes 100 mL q6 hours. [employer] is following for repeat swallow evaluations. He had a BM on 06/22 x3 yesterday and is not currently on a bowel regimen. 14. GERD Will continue his home PPI. 15. Left Trochanteric Fracture Orthopedic surgery evaluated and did not think surgical intervention was needed at this time. They recommended supportive care with PT and OT with weight bearing as tolerated. If he starts to have pain then they would want to pursue an MRI of the hip. 16. Bacteroides Fragilis Scrotal Abscess and Cellulitis Urology evaluated and reviewed his CT imaging. They recommended a 10 day course of antibiotics. He is on day 6 of planned 10 day treatment course. He was initially treated with clindamycin before transitioning to bactrim DS BID and metronidazole 500mg q8 hours. Will follow up sensitivities to ensure the days of clindamycin treatment count toward his final antibiotic duration. If he was not sensitive to clindamycin then the end date would be 06/29 (rather than 06/27). 17. Prophylaxis DVT: SCD, SQ heparin 5k q8 hours GI: home PPI Pulm: mobilize, cough assist and CPT QID 18. Lines NGT, PIV x2, external male urinary collection device. 19. Disposition He can transfer to a step down unit today. Neurosurgery is discussing transfer to the geriatric trauma service for ongoing supportive care. ??? I personally evaluated and examined the patient on 06/23/2021 at 10:52 AM ??? I discussed the patient's treatment plan with neurosurgery, respiratory therapy, his bedside nurse and the patient. A member of our team will update his family post rounds. ??? I spent 37 minutes in full attendance of the patient's care. Greater than 50% of this time was spent in counseling the patient and coordinating the plan of care. Mario Chavarria MD Neurocritical Care Attending * Patricia Ferrer NP - 06/23/2021 7:45 AM CDT Neuro Critical Care Progress Note Dx: TBI with trace tSAH and IVH, Encephalopathy HPI: 71M HTN/HL, a-fib on Eliquis, HFrEF (45-50% EF 2020), COPD not on home O2, legally blind, and hearing loss admitted with trace tSAH and IVH following a fall. Admitted OSH with altered LOC. Initial CT neg but subsequent MRI with tr SAH/IVH. Tx to [facility] NSGY service 06/11 where has remained encephalopathic. Medicine consulted for encephalopathy and felt airway was threatened, hence transfer to ICU06/12. Interval Events: -- discontinued coombs but had 3 episodes of unmeasured urine. PVR 101 mL -- resumed thiamine 100 mg daily -- discontinued amio and changed metoprolol 25 mg q6h to 50 BID -- attempted orthostatics yesterday but was unable to get standing BP/HR. Results positive due to: -- lying: HR 83, BP 112/78 -- sitting: HR 76, BP 109/78 -- hypernatremia improving and decreased FWF to 100 cc q6 hrs -- no acute events overnight Vitals Temp Min: 36.3 ??C (97.3 ??F) Max: 37.2 ??C (99 ??F) Pulse Min: 69 Max: 96 NIBP BP Min: 96/71 Max: 139/77 MAP (mmHg) Av.1 Min: 73 Max: 126 A-line No data recorded I/O: Intake/Output Summary (Last 24 hours) at 06/23/2021 0745 Last data filed at 06/23/2021 0700 Gross per 24 hour Intake 1920 ml Output 976 ml Net 944 ml UOP 976 mL + 3 episodes of unmeasured urine LABS Recent Labs Lab Units 06/22/21203706/21/21210506/20/21212406/19/21202506/18/21220106/17/21220206/17/21 0817 SODIUM mmol/L 138 140 143 < > 148* 147* 144 POTASSIUM PLASMA mmol/L 4.6 4.3 3.6 < > 3.4 4.3 4.3 CHLORIDE mmol/L 103 102 110 < > 114* 110 110 CO2 mmol/L 31 29 28 < > 27 31 30 ANIONGAP mmol/L 4 9 5 < > 7 6 4 GLUCOSE mg/dL 120 113 110 < > 115 152 150 BUN SERUM mg/dL 14 14 12 < > 14 17 17 CREATININE mg/dL 0.84 0.87 0.70* < > 0.70* 0.80 0.79* CALCIUM mg/dL 9.3 8.9 7.3* < > 7.4* 8.8 8.6 MAGNESIUM mg/dL 2.3 2.6* 1.7 < > 1.8 2.3 2.7* PHOSPHORUS PLASMA mg/dL -- -- -- -- 3.7 3.3 2.9 < > = values in this interval not displayed. Recent Labs Lab Units 06/22/21203706/21/21210506/20/212124 WBC K/cumm 8.1 9.4 8.1 HEMATOCRIT % 30.5* 36.0* 29.1* HEMOGLOBIN g/dL 10.7* 12.2* 9.8* PLATELETS K/cumm 198 227 163 Recent Labs Lab Units 06/18/21 220 ALK PHOS Units/L 91 BILIRUBIN TOTAL mg/dL 0.2 TOTAL PROTEIN g/dL 5.0* ALBUMIN g/dL 2.4* ALT Units/L 12 AST Units/L 18 Recent Labs Lab Units 06/20/21 0812 06/17/213 06/16/21 2224 PH ART 7.42 7.45 7.46* PCO2 ART mmHg 43 41 40 PO2 ART mmHg 110* 170* 107 HCO3 ART (CALC) mmol/L 29 30 29 O2 SAT ART (NANI) % 99* 99* 99* BASE EXC ART mmol/L 3 4 4 NEURO IMAGING (Most recent) No new imaging (last HCT 06/15/2021) PHYSICAL EXAM: HEENT: Mucous membranes moist, poor dentition. Sclera anicteric. Cardiac: Irregularly irregular. A-fib. No M/R/G. Pulmonary: Even, unlabored respirations. Symmetric chest rise and fall. Coarse throughout. Abdomen: Rounded but non-distended in appearance, hypoactive bowel sounds, soft/non-tender to palpation. Skin: Warm and dry. NEURO EXAM Mental Status Eyes open spontaneously, regards, follows some simple commands, Oriented self and hospital Cranial Nerves PERRL 3-->2, gaze midline, L ptosis, R nasolabial flattening at rest, symmetric smile, Spontaneous cough, + dysarthria Motor RUE 4+/5 with slight drift LUE 5/5 BLE at least AG and move spontaneously NEUROLOGICAL Meds: ??? MVI 15 ml daily ??? Ramelteon 8 mg qHS ??? Thiamine 100 mg daily ? ? Trazodone 50 mg --> 100 mg qHS # Traumatic brain injury w/tSAH/IVH in setting of fall and AC -- neuro checks q4h + sleep hygiene -- s/p Keppra x7 days, seizure precautions -- PT, OT, [employer] consults # Encephalopathy, improving -- suspect multifactorial with alcohol withdrawal (OSH given librium), TBI, hospital admission/delirium, possible Wernicke's -- Encephalopathy labs thus far unrevealing: TSH 0.8, Folate > 20, B12 742, RPR non-reactive, HIV non-reactive, hepatitis panel non-reactive, ammonia < 20 -- cEEG (06/12-06/13) negative for seizures; EEG (06/15) negative for seizures -- delirium precautions -- s/p 9 days folic acid, 3 days 500 mg IV q8h, thiamine followed by 250 mg x5 days -- Continue MVI daily and thiamine 100 mg daily indefinitely # Insomnia -- Sleep hygiene -- ramelteon @ 1800 -- increase trazodone 50 mg to 100 mg qHS CARDIOVASCULAR and HEME Meds: ? ? Lasix 20 mg daily --> discontinue ??? metoprolol 50 mg BID ??? pravastatin 40 mg daily TTE (06/13): LA is mildly dilated. Normal RV cavity size and function. LV cavity size is normal. Concentric LV remodeling with normal EF=70-75%. Normal Inferior vena cava. Dilated JOSE RAFAEL=4.7 cm and ascending aorta=3.9 cm. # Atrial fibrillation with RVR -- s/p amio gtt 06/13-06/14; f/u with outpatient pharmacovigilance specialist -- d/c amiodarone today (not optimal medication for this patient to be continued on meterman) -- metoprolol 25 mg q6h (home dose metoprolol 100 mg BID)--> change to 50 mg BID today -- monitor on tele; goal HR<120 -- ensure K+ and Mg adequately repleted -- acute SAH/IVH currently precludes therapeutic anticoagulation (previously on Eliquis). NSGY recommends resuming eliquis 1 month from injury # Chronic systolic HF -- per cardiology note 01/25/21: asymptomatic mild LV dysfunction, suspect tachycardia mediated -- previously EF 45-50% (2020), now as of 06/13 EF 70-75% -- discontinue Lasix and metoprolol -- holding home lisinopril # Possible syncope -- + orthostatic symptoms as outpatient per and + orthostatics at OSH -- TTE unrevealing -- orthostatics positive 06/22. Plan to decrease terazosin from 20 mg to 10 mg daily # History of DVT 2019 -- holding home Eliquis most recently reportedly for a-fib, last dose 06/08 -- LED (06/14) negative for DVT # HTN -- holding home lisinopril 40 mg daily for now as respiratory status is tenuous -- SBP <160 # HLD -- continue home pravastatin # Macrocytic anemia -- folate/B12 wnl, likely 2/2 long-standing alcohol use -- CBC daily -- hgb goal >7 PULMONARY Resp Min: 14 Max: 29 SpO2 Min: 93 % Max: 100 % Secretions: thick and copious, able to clear with coughing, no desaturations Oxygen: On HHFT 40% Meds: ??? PRN albuterol # History of COPD -- extubated 06/18 -- continue HHFT for humidity -- decrease cough assist and CPT to TID -- SPO2 goal 88-92% -- mobilize as able RENAL Meds: ??? terazosin 20 mg daily # BPH -- continue home terazosin # Hypernatremia/hyperchloremia, stable -- [id number] ml q6h GI and ENDO Meds: ??? Protonix 40 mg Daily Diet: Diet, Tube Feeding No Tray Jevity 1.5 veronica (NGT); 60; 100; Water; Every 6 hours IV fluids: SL IVF Flushes:none Last BM: 06/23 x1, 06/22 2 --> loose stools # Nutrition/Dysphagia -- Continue Jevity 1.5 @ 60 w/ FWF -- [employer] following: planning for MBS saturday # Diarrhea -- likely iatrogenic -- afebrile and normal WBC. Will continue to monitor for now -- Hold BR # GERD -- continue PPI INFECTION RELEVANT/MOST RECENT MICRO LAB DATA: ?? Blood cultures (06/14) NG ?? Respiratory culture (06/16): Insignificant growth based on current clinical standards, final ?? COVID-19 RNA (06/12) negative ?? UA (06/12) negative ?? Hepatitis panel (06/12): NG ?? Scrotal abscess cultures (06/17): Abundant Bacteroides fragilis, rare mixed microorganisms (susceptibilities pending) Meds: ??? clindamycin 600 mg q8h (06/18-06/20 ) ??? Flagyl 500 mg Q8H (06/20 - ??? Bactrim BID (06/20 - # Bacteroides Fragilis Scrotal abscess with cellulitis # Left hydrocele -- US scrotum (06/17) with left hydrocele and cellulitis -- CT pelvis w contrast (06/17) positive for small left scrotal hydrocele, negative for soft tissue gas, and positive for non-displaced trochanteric fracture -- f/u cultures and susceptibilities -- Urology consulted:10 day course antbx and should heal on its own, call if infection appears worse or changes -- Clindamycin discontinued, continue Flagyl and Bactrim, f/u susceptibilities (sent to [place]) -- Day 3/10 of antibiotics (will count clindamycin as treatment days if bacteroides susceptible) MUSCULOSKELETAL # Left greater trochanteric fracture -- Ortho consulted;WBAT LLE and no need for MRI, can trial mobilization with PT. If fails due to pain can get MRI of L hip. -- Ortho signed off. ACCESS Lines ?? PIV x2 ?? Left NG tube Coombs ??? External urinary device VTE Prophylaxis Last Venous Doppler: 06/14/2021 negative Prophylaxis: SCDs, SQH 5,000 units q8h CODE STATUS: Full Code Disposition: D/w NSGY re transfer to geriatric trauma service vs medicine Cosigned by Mario Chavarria MD at 06/23/2021 5:57 PM CDT Associated attestation - Mario Chavarria MD - 06/23/2021 5:57 PM CDT I personally evaluated and examined the patient with the nurse practitioner. I have reviewed and confirmed the history, physical exam, laboratory and radiographic data with the nurse practitioner as documented in the ICU note. Please refer to my separate progress note for this patient for my assessment and plan. Mario Chavarria MD Neurocritical Care Attending * Clarence Soto MD PhD - 06/23/2021 6:52 AM CDT Neurosurgery Daily Progress Note 06/23/2021 Hospital Course 06/11 Admitted. HCT with stable ventricular size, small IVH in occipital horns. 06/12: TTSDU, then TTICU for persistently depressed mental status. Repeat head CT stable. Metop for Afib w RVR. Started on high dose thiamine. EEG negative, planning for continuous. 06/13 placed on amio gtt for afib w/ RVR; cEEG d/c'd; TTE wnl 06/14 brain MRI w stable small SAH/IVH, no other infarct/lesion. Hypoxemia and desaturation, intubated overnight, HCT stable. 06/15 cEEG w/ mod gen slowing 06/16 joel 06/[address] pelvis w/ left small nondisplaced greater trochanter fracture 06/19 Ortho- WBAT LLE, no need for MRI unless pain w ambulation, s/o. 06/20 JOEL 06/21 JOEL 06/22 JOEL Objective Physical Exam: not sedated, on HH face tent EO voice, regards, follows commands (wiggles toes) Oriented x1 PERRL, gaze conjugate, face symmetric FC in arms and legs antigravity Vitals: 24hr min/max vitals: Temp Min: 36.3 ??C (97.3 ??F) Max: 37.2 ??C (99 ??F) Pulse Min: 69 Max: 96 Resp Min: 14 Max: 29 SpO2 Min: 93 % Max: 100 % MAP (mmHg) Min: 73 Max: 126 Intake and output: I/O last 2 completed shifts: In: 2200 [NG/GT:2200] Out: 1326 [Urine:1276; Emesis/NG output:50] Medications: Scheduled Scheduled Medications Medication Dose Route Frequency ??? furosemide (LASIX) tablet 20 mg 20 mg feeding tube Daily ??? heparin 5,000 unit/mL injection 5,000 Units 5,000 Units subcutaneous Q8H MONET ??? metoprolol tartrate (LOPRESSOR) immediate release tablet 50 mg 50 mg feeding tube BID ??? metroNIDAZOLE (FLAGYL) tablet 500 mg 500 mg feeding tube Q8H MONET ??? cljwkqkp-phl-kipwzrw gluconate (CENTRUM) 0.6 mg iron/mL oral liquid 15 mL 15 mL feeding tube Daily ??? pantoprazole (PROTONIX) 4 mg/mL injection 40 mg 40 mg intravenous Daily ??? pravastatin (PRAVACHOL) tablet 40 mg 40 mg feeding tube Daily ??? ramelteon (ROZEREM) tablet 8 mg 8 mg feeding tube Nightly ??? sodium chloride 0.9% flush 0.5-20 mL 0.5-20 mL intra-catheter Q8H MONET ??? sodium chloride 0.9% flush 0.5-20 mL 0.5-20 mL intra-catheter Q8H MONET ??? sulfamethoxazole-trimethoprim (BACTRIM) 40-8 mg/mL (dosed on TMP component) oral suspension 320mg of trimethoprim 320 mg of trimethoprim feeding tube BID ??? terazosin (HYTRIN) capsule 20 mg 20 mg feeding tube Nightly ??? thiamine (VITAMIN B1) tablet 100 mg 100 mg feeding tube Daily ??? traZODone (DESYREL) tablet 50 mg 50 mg feeding tube Nightly As needed PRN Medications Medication Dose Route Frequency Last Admin ??? acetaminophen (TYLENOL) tablet 650 mg 650 mg feeding tube Q4H PRN 650 mg at 06/18/21 0035 ??? albuterol 2.5 mg/0.5 mL nebulizer solution 1.25 mg 1.25 mg nebulization Q6H PRN (RT) ??? bisacodyL (DULCOLAX) suppository 10 mg 10 mg rectal Daily PRN ??? ondansetron (ZOFRAN) injection 4 mg 4 mg intravenous Q6H PRN ??? sodium chloride 0.9% flush 0.5-20 mL 0.5-20 mL intra-catheter PRN ??? sodium chloride 0.9% flush 0.5-20 mL 0.5-20 mL intra-catheter PRN Labs: Lab Results Component Value Date SODIUM 138 06/22/2021 SODIUM 140 06/21/2021 SODIUM 143 06/20/2021 Lab Results Component Value Date GLUCOSE 120 06/22/2021 CALCIUM 9.3 06/22/2021 POTASSIUM 4.6 06/22/2021 CO2 31 06/22/2021 CHLORIDE 103 06/22/2021 BUNSER 14 06/22/2021 CREATININE 0.84 06/22/2021 Lab Results Component Value Date WBC 8.1 06/22/2021 WBC 9.4 06/21/2021 WBC 8.1 06/20/2021 HGB 10.7 (L) 06/22/2021 HGB 12.2 (L) 06/21/2021 HGB 9.8 (L) 06/20/2021 HCT 30.5 (L) 06/22/2021 HCT 36.0 (L) 06/21/2021 HCT 29.1 (L) 06/20/2021 LABPLAT 198 06/22/2021 LABPLAT 227 06/21/2021 LABPLAT 163 06/20/2021 Lab Results Component Value Date INR 1.1 06/11/2021 INR 1.1 07/13/2020 INR 1.6 (H) 02/21/2020 PT 12.5 06/11/2021 PT 12.3 07/13/2020 PT 17.9 (H) 02/21/2020 APTT 31 06/11/2021 APTT 80 (H) 02/20/2020 APTT 26 02/20/2020 No components found for: TROPONIN PT/OT assessment: PT Recommendation/Plan: Half-Way Facility OT Recommendation: Inpatient Rehab Facility Assessment/Plan Hospital Day: 13 Jania Redman is a 71 y.o. year old male who presented with tSAH and small IVH after MGLF. Plan Keppra 500 BID x7 days, over Respiratory care CIWA watch, coming out of window afib watch - rate controlled, chronic bMRI without structural cause of AMS No neurosurgical issues currently, may be more appropriate for medicine vs GTS service post ICU needs Mobilize, oob Void watch Appreciate ortho recs for femur fracture, wbat, MRI if fails DVT prophylaxis: ok for medical ppx Responsible team (call resident in bold with questions) Vascular Note created by Clarence Soto MD PhD on 06/23/2021 at 6:53 AM. Cosigned by Seth Kiesr MD at 07/02/2021 9:01 AM CDT * Sera Guevara, PT - 06/22/2021 2:22 PM CDT Physical Therapy Physical Therapy Progress Note NOTE: This is a summary note of the troy components of the treatment session. For full details, review chart for all flowsheets documented on by this physical therapy clinician on this date. Vital signs documented in vital signs flowsheet. Care plan progress documented in Care Plan Activity. For questions, please review the treatment team and contact the PT or WELL CLEANER currently assigned to this patient. If a physical therapy clinician is not assigned to this patient, please call [phone]. 06/22/21 1422 PT Last Visit Session Type Treatment PT Received On 06/22/21 Safe Environment Arm Band Checked;Notified RN;Session Completed Bedside;Patient found sitting in Chair (patient left in supine) Subjective Agreeable to Therapy Precautions Precautions Fall risk Pain Assessment Pain Assessment No/denies pain Cognition Arousal/Alertness Alert Orientation Oriented to person Static Sitting Balance Static Sitting-Level of Assistance Contact guard Static Standing Balance Static Standing-Level of Assistance Maximum assistance Equipment Use Equipment Use Comments gait belt used Bed Mobility 1 Bed Mobility From 1 Edge of bed Bed Mobility Type 1 To Bed Mobility to 1 Supine Level of Assistance 1 Maximum Assist Bed Mobility Comments 1 assist with maneuvering trunk and elevation of LEs Bed Mobility 2 Bed Mobility From 2 Supine Bed Mobility Type 2 To and from Bed Mobility to 2 Rolling left;Rolling right Level of Assistance 2 Minimum Assist Transfer 1 Transfer From 1 Sit Transfer Type 1 To and from Transfer to 1 Stand Technique 1 Sit to stand;Stand to sit Transfer Device 1 No device Transfer Level of Assistance 1 Maximum Assist Trials/Comments 1 decreased force production, posterior lean, decreased hip and knee extension Transfers 2 Transfer From 2 Chair with arms Transfer Type 2 To Transfer to 2 Sit;Bed Technique 2 Stand pivot Transfer Device 2 No device Transfer Level of Assistance 2 Maximum Assist Trials/Comments 2 decreased force production, decreased hip and knee extension, posterior lean Basic Mobility - 6 Click How much difficulty does the patient have: Turning over in bed 3 How much difficulty does the patient currently have: Sitting down and standing up from a chair witharms? 2 How much difficulty does the patient have: Moving from lying on back to sitting on the side of the bed? 2 How much difficulty does the patient have: Moving to and from a bed to a chair including wheelchair? 2 How much help does the patient currently need: Walk in hospital room? 1 How much help from another person does the patient currently need: Climbing 3-5 steps with a railing? 1 Total 6 Click Score (range 6-24) 11 Score Interpretation 30.25 Plan Plan Continue with current plan;If this is the last note, consider this the discharge summary Recommendation/Plan PT Recommendation/Plan [facility]-Way Facility PT Frequency 3-5x/wk PT - Next Appointment 06/26/21 Multi-Disciplinary Problems (from Physical Therapy) Active Problems Problem: Mobility Start Date: 06/13/21 Goal Start Date Expected End Date End Date STG - Patient will ambulate 06/13/21 07/11/21 -- Goal Details: 100 ft wthi LRAD, Maritza Problem: Transfers Start Date: 06/13/21 Goal Start Date Expected End Date End Date STG - Patient to transfer to and from sit to supine 06/13/21 06/27/21 -- Goal Details: Maritza Goal Start Date Expected End Date End Date STG - Patient will transfer sit to and from stand 06/13/21 06/27/21 -- Goal Details: Maritza with LRAD Problem: Mobility Start Date: 06/13/21 Goal Start Date Expected End Date End Date LTG - Patient will demonstrate functional mobility with the following level of assist: 06/13/21 06/27/21 -- Goal Details: Cherelle with LRAD * Mario Chavarria MD - 06/22/2021 10:33 AM CDT Neurocritical Care Attending Progress Note Admission Diagnosis: Acute Traumatic Brain Injury with Subarachnoid Hemorrhage and Intraventricular Hemorrhage, Acute Encephalopathy Overnight Events: He remained in the ICU for assistance with secretion management and ensuring appropriate respirations. He was continued on cough assist QID with an addition of CPT QID as well. His cough strength hasimproved and he did not have any desaturation events yesterday. He had not been sleeping much so hewas started on ramelteon 8mg nightly at 1800 and trazodone 50mg qHS yesterday. He finally slept well per discussion nursing. No other acute events overnight. This morning he denied chest pain, shortness of breath and abdominal pain. He denied headache. He says his strength is doing well. Current Medication List: I reviewed the patient's current active medication list and discussed it with our clinical pharmacist. Vital Signs: Temp: [36.3 ??C (97.3 ??F)-36.8 ??C (98.2 ??F)] 36.3 ??C (97.3 ??F) Pulse: [77-113] 77 BP: (93-151)/(59-103) 96/61 Resp: [15-25] 19 SpO2: [91 %-100 %] 100 % FiO2 (%): [40 %] 40 % Labs/Microbiology: All laboratory results over the past 24 hours have been personally reviewed within the EMR. Imaging: All imaging over the past 24 hours has been personally reviewed in the EMR. Exam: General: He is sitting up in his bedside chair and breathing comfortably with a high humidity face tent just below his chin. Neuro: He is awake and alert. He is very hard of hearing (does better with questions on his left side). He regards and sustains attention. He is oriented to self only. He thought he was playing videogames at an amusement park (though his TV was on [employer] at the time). He did not know the month or year. He had moderate dysarthria. He had midline gaze. His pupils were reactive to lightbilaterally (3->2mm). He had full extraocular movements. His eyebrow raise was symmetric. He hadL eyelid ptosis. He had decreased nasolabial fold on the right but equal velocity and endpoint of smile bilaterally. He had midline tongue protrusion. He had slight RUE drift, no drift in the LUE andno drift in the BLE. Formal testing with 5/5 LUE proximally and distally and 4+/5 RUE proximally and distally. HEENT: sclera anicteric, conjunctiva pink, mucous membranes moist CV: normal S1 and S2, irregular rhythm and normal rate, no murmurs Pulm: good air movement bilaterally with coarse breath sounds throughout with upper airway noise that improved with coughing, no wheezing, no crackles Abdomen: soft, non-distended, non-tender, normoactive bowel sounds Ext: 2+ pulses with trace pitting edema in the BLE. Plan: 1. Traumatic Brain Injury with SAH and Intraventricular Hemorrhage He has sustained his improved mental status. He completed 7 days of antiepileptic therapy to prevent early post traumatic seizures. No clinical seizures thus far. Will continue supportive care with PT, OT and [employer] evaluation and treatment. We are following neuro checks q4 hours with sleep hygiene. 2. Alcohol Withdrawal This has resolved and he is now outside of the window for withdrawal. He only required a few doses of benzodiazepines and a few days of dexmedetomidine gtt early in his ICU course. Last benzodiazepine dose was 3/7. He was treated with high dose thiamien 500mg IV q8 hours x3 days, 250mg daily for 5 days and is now on oral thiamine 100mg daily indefinitely. He completed seven days of folic acid 1mgdaily. He will also remain on a daily MVI. 3. ICU Delirium He had not slept well at all until last night after being started on ramelteon 8mg every evening, trazodone 50mg at bedtime and having sleep hygeine added. Nursing notes a significant improvement in his attention and impulsivity today. We will continue to provide sleep hygiene and delirium precautions with frequent re-orientation. He will remain on ramelteon 8mg nightly at 1800 to establish a normal sleep/wake cycle. We will continue trazodone 50mg qHS for sleep consolidation as well. 4. Atrial Fibrillation His HR has ranged 80 to 100 bpm. He is currently on metoprolol 25mg q6 hours and amiodarone 200mg daily. care home amiodarone is not a great medication for him given his primary lung disease with COPD. We will discontinue this today for that reason. We will continue metoprolol but consolidate to 50mg BID today. We can monitor his BP closely and further increase metoprolol if needed for rate control. His apixaban is on hold but will need to be resumed eventually for secondary stroke prevention. Will discuss with neurosurgery when they will be ok resuming this. 5. Heart Failure with reduced Ejection Fraction His LVEF is improved from his baseline of 45-50% up to 70 to 75%. Will continue his beta edmund daily while maintaining clinical euvolemia. Will stop scheduled furosemide given his recent orthostatic hypotension. 6. Syncope with Orthostatic Hypotension Reportedly orthostatic at the prior hospital. Will recheck his orthostatic vital signs today. If heremains orthostatic we will stop his alpha edmund, given him a 500mL NS bolus and then recheck tomorrow. No reported significant valvular abnormalities on TTE that would lead to syncope. 7. Hypertension His SBP ranged 100 to 120 mmHg yesterday. Will continue the same overall metoprolol dose today and continue to monitor. He may require an alpha edmund dose reduction. 8. Hyperlipidemia Will continue his pravastatin 40mg daily. 9. Anemia, Macrocytic His hemoglobin was 12.2 g/dL today. Will continue to monitor his CBC daily and maintain Hgb > 7.0 g/dL. 10. At Risk for Altered Respiratory Function He is doing well with cough assist and CPT QID. He has a high humidity face tent to help his secretions mobilize more easily. We will continue these interventions today. He will also continue to mobilize out of bed to chair daily. 11. COPD without exacerbation Will maintain spo2 goal 88 to 92%. He has albuterol and ipratroprium available as needed for acute shortness of breath or wheezing. 12. BPH He is on terasozin 20mg qHS. We are assessing for orthostasis as noted above. If he remains orthostatic we will discontinue the alpha edmund and start finasteride 5mg daily. He has a coombs in place that we will remove today for a voiding trial. 13. Dysphagia due to TBI Will continue his tube feeds with Jevity 1.5 at 60 mL/hr. Will change his free water flushes from 150 mL q4 hours to 100 mL q6 hours today as his sodium has normalized. [employer] is following for repeat swallow evaluations. He had a BM on 06/20 and is not currently on a bowel regimen. Will resume daily senna and colace tomorrow if no BM today. 14. GERD Will continue his home PPI. 15. Left Trochanteric Fracture Orthopedic surgery evaluated and did not think surgical intervention was needed at this time. They recommended supportive care with PT and OT with weight bearing as tolerated. If he starts to have pain then they would want to pursue an MRI of the hip. 16. Bacteroides Fragilis Scrotal Abscess and Cellulitis Urology evaluated and reviewed his CT imaging. They recommended a 10 day course of antibiotics. He is on day 5 of planned 10 day treatment course. He was initially treated with clindamycin before transitioning to bactrim DS BID and metronidazole 500mg q8 hours. Will follow up sensitivities to ensure the days of clindamycin treatment count toward his final antibiotic duration. If he was not sensitive to clindamycin then the end date would be 06/29 (rather than 06/27). 17. Prophylaxis DVT: SCD, SQ heparin 5k q8 hours GI: home PPI Pulm: mobilize, cough assist and CPT QID 18. Lines NGT, PIV x2, coombs -> discontinuing coombs today. 19. Disposition He can transfer to a step down unit today. Neurosurgery would like to transfer him to the geriatrictrauma service for ongoing supportive care. ??? I personally evaluated and examined the patient on 06/22/2021 at 10:34 AM ??? I discussed the patient's treatment plan with neurosurgery, respiratory therapy, his bedside nurse and the patient. A member of our team will update his family post rounds. ??? I spent 38 minutes in full attendance of the patient's care. Greater than 50% of this time was spent in counseling the patient and coordinating the plan of care. Mario Chavarria MD Neurocritical Care Attending * Tamiko Ray, GARIMA - 06/22/2021 7:45 AM CDT Neuro Critical Care Progress Note Dx: TBI with trace tSAH and IVH, Encephalopathy HPI: 71M HTN/HL, a-fib on Eliquis, HFrEF (45-50% EF 2020), COPD not on home O2, legally blind, and hearing loss admitted with trace tSAH and IVH following a fall. Admitted OSH with altered LOC. Initial CT neg but subsequent MRI with tr SAH/IVH. Tx to [facility] NSGY service 06/11 where has remained encephalopathic. Medicine consulted for encephalopathy and felt airway was threatened, hence transfer to ICU06/12. Interval Events: -- slept well with trazodone and ramelteon -- NAEO Vitals Temp Min: 36.3 ??C (97.3 ??F) Max: 36.8 ??C (98.2 ??F) Pulse Min: 77 Max: 113 NIBP BP Min: 93/81 Max: 151/75 MAP (mmHg) Av.5 Min: 70 Max: 110 A-line No data recorded I/O: Intake/Output Summary (Last 24 hours) at 06/22/2021 1036 Last data filed at 06/22/2021 1000 Gross per 24 hour Intake 2520 ml Output 1745 ml Net 775 ml LABS Recent Labs Lab Units 06/21/21210506/20/21212406/19/21202506/18/21 2202 06/17/21 2203 06/17/21 0817 SODIUM mmol/L 140 143 144 148* 147* 144 POTASSIUM PLASMA mmol/L 4.3 3.6 4.4 3.4 4.3 4.3 CHLORIDE mmol/L 102 110 107 114* 110 110 CO2 mmol/L 29 28 30 27 31 30 ANIONGAP mmol/L 9 5 7 7 6 4 GLUCOSE mg/dL 113 110 133 115 152 150 BUN SERUM mg/dL 14 12 14 14 17 17 CREATININE mg/dL 0.87 0.70* 0.86 0.70* 0.80 0.79* CALCIUM mg/dL 8.9 7.3* 9.1 7.4* 8.8 8.6 MAGNESIUM mg/dL 2.6* 1.7 2.4 1.8 2.3 2.7* PHOSPHORUS PLASMA mg/dL -- -- -- 3.7 3.3 2.9 Recent Labs Lab Units 06/21/21210506/20/21212406/19/212025 WBC K/cumm 9.4 8.1 7.9 HEMATOCRIT % 36.0* 29.1* 35.1* HEMOGLOBIN g/dL 12.2* 9.8* 11.6* PLATELETS K/cumm 227 163 192 Recent Labs Lab Units 06/18/212201 ALK PHOS Units/L 91 BILIRUBIN TOTAL mg/dL 0.2 TOTAL PROTEIN g/dL 5.0* ALBUMIN g/dL 2.4* ALT Units/L 12 AST Units/L 18 Recent Labs Lab Units 06/20/21 0812 06/17/21220206/16/212223 PH ART 7.42 7.45 7.46* PCO2 ART mmHg 43 41 40 PO2 ART mmHg 110* 170* 107 HCO3 ART (CALC) mmol/L 29 30 29 O2 SAT ART (NANI) % 99* 99* 99* BASE EXC ART mmol/L 3 4 4 NEURO IMAGING (Most recent) No new imaging (last HCT 06/15/2021) PHYSICAL EXAM: HEENT: Mucous membranes moist, poor dentition. Sclera anicteric. Cardiac: Irregularly irregular. A-fib. No M/R/G. Pulmonary: Even, unlabored respirations. Symmetric chest rise and fall. Coarse throughout. Abdomen: Rounded but non-distended in appearance, hypoactive bowel sounds, soft/non-tender to palpation. Skin: Warm and dry. NEURO EXAM Mental Status Eyes open spontaneously, regards, follows some simple commands, Ox self only, repetition intact Cranial Nerves Pupils small and equal, gaze midline, L ptosis, R nasolabial flattening at rest, symmetric smile, Spontaneous cough, tongue protrudes midline Motor RUE 4/5 with slight drift LUE AG 5/5 BLE at least AG and move spontaneously NEUROLOGICAL Meds: ??? MVI 15 ml daily ??? Thiamine 100 mg daily # Traumatic brain injury w/tSAH/IVH in setting of fall and AC -- neuro checks q4h + sleep hygiene -- s/p Keppra x7 days, seizure precautions -- PT, OT, [employer] consults # Encephalopathy, improving -- suspect multifactorial with alcohol withdrawal (OSH given librium), TBI, hospital admission/delirium, possible Wernicke's -- Encephalopathy labs thus far unrevealing: TSH 0.8, Folate > 20, B12 742, RPR non-reactive, HIV non-reactive, hepatitis panel non-reactive, ammonia < 20 -- cEEG (06/12-06/13) negative for seizures; EEG (06/15) negative for seizures -- delirium precautions -- s/p 9 days folic acid, 3 days 500 mg IV q8h, thiamine followed by 250 mg x5 days -- Continue MVI daily and thiamine 100 mg daily indefinitely # Insomnia -- Sleep hygiene -- ramelteon @ 1800 + trazodone 50 mg CARDIOVASCULAR and HEME Meds: ? ? amiodarone 200 mg daily --> d/c ??? Lasix 20 mg daily ??? metoprolol 25 mg q6h ??? pravastatin 40 mg daily TTE (06/13): LA is mildly dilated. Normal RV cavity size and function. LV cavity size is normal. Concentric LV remodeling with normal EF=70-75%. Normal Inferior vena cava. Dilated JOSE RAFAEL=4.7 cm and ascending aorta=3.9 cm. # Atrial fibrillation with RVR -- s/p amio gtt 06/13-06/14; f/u with outpatient pharmacovigilance specialist -- d/c amiodarone today (not optimal medication for this patient to be continued on fdc) -- metoprolol 25 mg q6h (home dose metoprolol 100 mg BID)--> change to 50 mg BID today -- monitor on tele; goal HR<120 -- ensure K+ and Mg adequately repleted -- acute SAH/IVH currently precludes therapeutic anticoagulation (previously on Eliquis), will discuss with NSGY regarding timing of restarting AC # Chronic systolic HF -- per cardiology note 01/25/21: asymptomatic mild LV dysfunction, suspect tachycardia mediated -- previously EF 45-50% (2020), now as of 06/13 EF 70-75% -- continue Lasix and metoprolol -- holding home lisinopril # Possible syncope -- + orthostatic symptoms as outpatient per and + orthostatics at OSH -- TTE unrevealing -- check orthostatics today--> if positive will d/c lasix and change terazosin to finasteride # History of DVT 2019 -- holding home Eliquis most recently reportedly for a-fib, last dose 06/08 -- LED (06/14) negative for DVT # HTN -- holding home lisinopril 40 mg daily for now as respiratory status is tenuous -- SBP <160 # HLD -- continue home pravastatin # Thrombocytopenia,resolved -- possibly nutritional or secondary to long-standing alcohol use -- HIV and hepatitis panel non-reactive, folate 742, copper 0.99 -- CBC daily # Macrocytic anemia -- folate/B12 wnl, likely 2/2 long-standing alcohol use -- CBC daily -- hgb goal >7 PULMONARY Resp Min: 15 Max: 25 SpO2 Min: 91 % Max: 100 % Secretions: thick and copious, able to clear with coughing, no desaturations Oxygen: On HHFT 40% Meds: ??? PRN albuterol # History of COPD -- extubated 06/18 -- continue HHFT for humidity -- cough assist QID and CP{T QID for copious secretions and atelectasis prevention -- SPO2 goal 88-92% -- mobilize as able RENAL Meds: ??? terazosin 20 mg daily # BPH -- continue home terazosin -- Void trial today # Hypernatremia/hyperchloremia, resolved -- Decrease FWF to 100 ml q6h GI and ENDO Meds: ??? Colace 100 mg BID (held) ??? Protonix 40 mg Daily ??? senna 8.8 mg BID (held) Diet: Diet, Tube Feeding No Tray Jevity 1.5 veronica (NGT); 60; 150; Water; Every 4 hours IV fluids: SL IVF Flushes:none Last BM: 06/20 # Nutrition/Dysphagia -- Continue Jevity 1.5 @ 60 w/ FWF -- [employer] following: Re-evaluated today at bedside, pt is aspirating on thin liquids, will re-eval today # Diarrhea -- likely iatrogenic -- Hold BR # GERD -- continue PPI INFECTION RELEVANT/MOST RECENT MICRO LAB DATA: ?? Blood cultures (06/14) NG ?? Respiratory culture (06/16): Moderate mixed bacterial clifton seen on gram stain ?? COVID-19 RNA (06/12) negative ?? UA (06/12) negative ?? Hepatitis panel (06/12): NG ?? Scrotal abscess cultures (06/17): Abundant Bacteroides fragilis, rare mixed microorganisms (susceptibilities pending) Meds: ??? clindamycin 600 mg q8h (06/18-06/20 ) ??? Flagyl 500 mg Q8H (06/20 - ??? Bactrim BID (06/20 - # Bacteroides Fragilis Scrotal abscess with cellulitis # Left hydrocele -- US scrotum (06/17) with left hydrocele and cellulitis -- CT pelvis w contrast (06/17) positive for small left scrotal hydrocele, negative for soft tissue gas, and positive for non-displaced trochanteric fracture -- f/u cultures and susceptibilities -- Urology consulted:10 day course antbx and should heal on its own, call if infection appears worse or changes -- Clindamycin discontinued, continue Flagyl and Bactrim, f/u susceptibilities (sent to [place]) -- Day 310 of antibiotics (will count clindamycin as treatment days if bacteroides susceptible) MUSCULOSKELETAL # Left greater trochanteric fracture -- Ortho consulted;WBAT LLE and no need for MRI, can trial mobilization with PT. If fails due to pain can get MRI of L hip. -- Ortho signed off. ACCESS Lines ?? PIV x2 ?? NG tube Coombs ? ? 06/13 Coude---> d/c VTE Prophylaxis Last Venous Doppler: 06/14/2021 negative Prophylaxis: SCDs, SQH 5,000 units q8h CODE STATUS: Full Code Disposition: D/w NSGY re transfer to geriatric trauma service Cosigned by Mario Chavarria MD at 06/22/2021 10:48 PM CDT Associated attestation - Mario Chavarria MD - 06/22/2021 10:48 PM CDT I personally evaluated and examined the patient with the nurse practitioner. I have reviewed and confirmed the history, physical exam, laboratory and radiographic data with the nurse practitioner as documented in the ICU note. Please refer to my separate progress note for this patient for my assessment and plan. Mario Chavarria MD Neurocritical Care Attending * Clarence Soto MD PhD - 06/22/2021 6:45 AM CDT Neurosurgery Daily Progress Note 06/22/2021 Hospital Course 06/11 Admitted. HCT with stable ventricular size, small IVH in occipital horns. 06/12: TTSDU, then TTICU for persistently depressed mental status. Repeat head CT stable. Metop for Afib w RVR. Started on high dose thiamine. EEG negative, planning for continuous. 06/13 placed on amio gtt for afib w/ RVR; cEEG d/c'd; TTE wnl 06/14 brain MRI w stable small SAH/IVH, no other infarct/lesion. Hypoxemia and desaturation, intubated overnight, HCT stable. 06/15 cEEG w/ mod gen slowing 06/16 joel 06/[address] pelvis w/ left small nondisplaced greater trochanter fracture 06/19 Ortho- WBAT LLE, no need for MRI unless pain w ambulation, s/o. 06/20 JOEL 06/21 JOEL Objective Physical Exam: not sedated, on HH face tent EO voice, regards, follows commands (wiggles toes) Oriented x3 PERRL, gaze conjugate, face symmetric FC in arms and legs antigravity Vitals: 24hr min/max vitals: Temp Min: 36.3 ??C (97.3 ??F) Max: 36.8 ??C (98.2 ??F) Pulse Min: 79 Max: 113 Resp Min: 15 Max: 28 SpO2 Min: 91 % Max: 100 % MAP (mmHg) Min: 70 Max: 113 Intake and output: I/O last 2 completed shifts: In: 2454 [I.V.:20; NG/GT:2325; IV Piggyback:110] Out: 1920 [Urine:1770; Emesis/NG output:150] Medications: Scheduled Scheduled Medications Medication Dose Route Frequency ??? amiodarone (PACERONE) tablet 200 mg 200 mg feeding tube Daily ??? furosemide (LASIX) tablet 20 mg 20 mg feeding tube Daily ??? heparin 5,000 unit/mL injection 5,000 Units 5,000 Units subcutaneous Q8H MONET ??? metoprolol tartrate (LOPRESSOR) immediate release tablet 25 mg 25 mg feeding tube Q6H ??? metroNIDAZOLE (FLAGYL) tablet 500 mg 500 mg feeding tube Q8H MONET ??? vkyfnuxr-azw-ehbpxuf gluconate (CENTRUM) 0.6 mg iron/mL oral liquid 15 mL 15 mL feeding tube Daily ??? pantoprazole (PROTONIX) 4 mg/mL injection 40 mg 40 mg intravenous Daily ??? pravastatin (PRAVACHOL) tablet 40 mg 40 mg feeding tube Daily ??? ramelteon (ROZEREM) tablet 8 mg 8 mg feeding tube Nightly ??? sodium chloride 0.9% flush 0.5-20 mL 0.5-20 mL intra-catheter Q8H MONET ??? sodium chloride 0.9% flush 0.5-20 mL 0.5-20 mL intra-catheter Q8H MONET ??? sulfamethoxazole-trimethoprim (BACTRIM) 40-8 mg/mL (dosed on TMP component) oral suspension 320mg of trimethoprim 320 mg of trimethoprim feeding tube BID ??? terazosin (HYTRIN) capsule 20 mg 20 mg feeding tube Nightly ??? traZODone (DESYREL) tablet 50 mg 50 mg feeding tube Nightly As needed PRN Medications Medication Dose Route Frequency Last Admin ??? acetaminophen (TYLENOL) tablet 650 mg 650 mg feeding tube Q4H PRN 650 mg at 06/18/21 0035 ??? bisacodyL (DULCOLAX) suppository 10 mg 10 mg rectal Daily PRN ??? levalbuterol (XOPENEX) 1.25 mg/3 mL nebulizer solution 1.25 mg 1.25 mg nebulization Q6H PRN (RT) 1.25 mg at 06/14/21 0914 ??? ondansetron (ZOFRAN) injection 4 mg 4 mg intravenous Q6H PRN ??? sodium chloride 0.9% flush 0.5-20 mL 0.5-20 mL intra-catheter PRN ??? sodium chloride 0.9% flush 0.5-20 mL 0.5-20 mL intra-catheter PRN Labs: Lab Results Component Value Date SODIUM 140 06/21/2021 SODIUM 143 06/20/2021 SODIUM 144 06/19/2021 Lab Results Component Value Date GLUCOSE 113 06/21/2021 CALCIUM 8.9 06/21/2021 POTASSIUM 4.3 06/21/2021 CO2 29 06/21/2021 CHLORIDE 102 06/21/2021 BUNSER 14 06/21/2021 CREATININE 0.87 06/21/2021 Lab Results Component Value Date WBC 9.4 06/21/2021 WBC 8.1 06/20/2021 WBC 7.9 06/19/2021 HGB 12.2 (L) 06/21/2021 HGB 9.8 (L) 06/20/2021 HGB 11.6 (L) 06/19/2021 HCT 36.0 (L) 06/21/2021 HCT 29.1 (L) 06/20/2021 HCT 35.1 (L) 06/19/2021 LABPLAT 227 06/21/2021 LABPLAT 163 06/20/2021 LABPLAT 192 06/19/2021 Lab Results Component Value Date INR 1.1 06/11/2021 INR 1.1 07/13/2020 INR 1.6 (H) 02/21/2020 PT 12.5 06/11/2021 PT 12.3 07/13/2020 PT 17.9 (H) 02/21/2020 APTT 31 06/11/2021 APTT 80 (H) 02/20/2020 APTT 26 02/20/2020 No components found for: TROPONIN PT/OT assessment: PT Recommendation/Plan: Half-Way Facility OT Recommendation: Inpatient Rehab Facility Assessment/Plan Hospital Day: 12 Jania Redman is a 71 y.o. year old male who presented with tSAH and small IVH after MGLF. Plan Keppra 500 BID x7 days, over Respiratory care CIWA watch, coming out of window afib watch - rate controlled, chronic bMRI without structural cause of AMS No neurosurgical issues currently, may be more appropriate for medicine service post ICU needs Appreciate ortho recs for femur fracture, wbat, MRI if fails DVT prophylaxis: ok for medical ppx Responsible team (call resident in bold with questions) Vascular Note created by Clarence Soto MD PhD on 06/22/2021 at 6:45 AM. Cosigned by Seth Kiser MD at 06/22/2021 2:43 PM CDT * Clarence Soto MD PhD - 06/21/2021 6:58 AM CDT Neurosurgery Daily Progress Note 06/21/2021 Hospital Course 06/11 Admitted. HCT with stable ventricular size, small IVH in occipital horns. 06/12: TTSDU, then TTICU for persistently depressed mental status. Repeat head CT stable. Metop for Afib w RVR. Started on high dose thiamine. EEG negative, planning for continuous. 06/13 placed on amio gtt for afib w/ RVR; cEEG d/c'd; TTE wnl 06/14 brain MRI w stable small SAH/IVH, no other infarct/lesion. Hypoxemia and desaturation, intubated overnight, HCT stable. 06/15 cEEG w/ mod gen slowing 06/16 joel 06/[address] pelvis w/ left small nondisplaced greater trochanter fracture 06/19 Ortho- WBAT LLE, no need for MRI unless pain w ambulation, s/o. 06/20 JOEL Objective Physical Exam: not sedated, on HH face tent EO stim, no regards, follows commands (wiggles toes) Oriented x1 to choice PERRL, gaze conjugate, face symmetric Localizing uppers, withdrawling lowers Vitals: 24hr min/max vitals: Temp Min: 36.5 ??C (97.7 ??F) Max: 37 ??C (98.6 ??F) Pulse Min: 88 Max: 120 Resp Min: 16 Max: 29 SpO2 Min: 92 % Max: 100 % MAP (mmHg) Min: 86 Max: 113 Intake and output: I/O last 2 completed shifts: In: 2545 [I.V.:10; NG/GT:2425; IV Piggyback:110] Out: 1250 [Urine:1250] Medications: Scheduled Scheduled Medications Medication Dose Route Frequency ??? amiodarone (PACERONE) tablet 200 mg 200 mg feeding tube Daily ??? furosemide (LASIX) tablet 20 mg 20 mg feeding tube Daily ??? heparin 5,000 unit/mL injection 5,000 Units 5,000 Units subcutaneous Q8H MONET ??? metoprolol tartrate (LOPRESSOR) immediate release tablet 25 mg 25 mg feeding tube Q6H ??? metroNIDAZOLE (FLAGYL) tablet 500 mg 500 mg feeding tube Q8H MONET ??? kbwygwpv-ntv-erppfxw gluconate (CENTRUM) 0.6 mg iron/mL oral liquid 15 mL 15 mL feeding tube Daily ??? pantoprazole (PROTONIX) 4 mg/mL injection 40 mg 40 mg intravenous Daily ??? pravastatin (PRAVACHOL) tablet 40 mg 40 mg feeding tube Daily ??? sodium chloride 0.9% flush 0.5-20 mL 0.5-20 mL intra-catheter Q8H MONET ??? sodium chloride 0.9% flush 0.5-20 mL 0.5-20 mL intra-catheter Q8H MONET ??? sulfamethoxazole-trimethoprim (BACTRIM) 40-8 mg/mL (dosed on TMP component) oral suspension 320mg of trimethoprim 320 mg of trimethoprim feeding tube BID ??? terazosin (HYTRIN) capsule 20 mg 20 mg feeding tube Nightly As needed PRN Medications Medication Dose Route Frequency Last Admin ??? acetaminophen (TYLENOL) tablet 650 mg 650 mg feeding tube Q4H PRN 650 mg at 06/18/21 0035 ??? bisacodyL (DULCOLAX) suppository 10 mg 10 mg rectal Daily PRN ??? levalbuterol (XOPENEX) 1.25 mg/3 mL nebulizer solution 1.25 mg 1.25 mg nebulization Q6H PRN (RT) 1.25 mg at 06/14/21 0914 ??? ondansetron (ZOFRAN) injection 4 mg 4 mg intravenous Q6H PRN ??? sodium chloride 0.9% flush 0.5-20 mL 0.5-20 mL intra-catheter PRN ??? sodium chloride 0.9% flush 0.5-20 mL 0.5-20 mL intra-catheter PRN Labs: Lab Results Component Value Date SODIUM 143 06/20/2021 SODIUM 144 06/19/2021 SODIUM 148 (H) 06/18/2021 Lab Results Component Value Date GLUCOSE 110 06/20/2021 CALCIUM 7.3 (L) 06/20/2021 POTASSIUM 3.6 06/20/2021 CO2 28 06/20/2021 CHLORIDE 110 06/20/2021 BUNSER 12 06/20/2021 CREATININE 0.70 (L) 06/20/2021 Lab Results Component Value Date WBC 8.1 06/20/2021 WBC 7.9 06/19/2021 WBC 5.3 06/18/2021 HGB 9.8 (L) 06/20/2021 HGB 11.6 (L) 06/19/2021 HGB 9.7 (L) 06/18/2021 HCT 29.1 (L) 06/20/2021 HCT 35.1 (L) 06/19/2021 HCT 29.4 (L) 06/18/2021 LABPLAT 163 06/20/2021 LABPLAT 192 06/19/2021 LABPLAT 141 (L) 06/18/2021 Lab Results Component Value Date INR 1.1 06/11/2021 INR 1.1 07/13/2020 INR 1.6 (H) 02/21/2020 PT 12.5 06/11/2021 PT 12.3 07/13/2020 PT 17.9 (H) 02/21/2020 APTT 31 06/11/2021 APTT 80 (H) 02/20/2020 APTT 26 02/20/2020 No components found for: TROPONIN PT/OT assessment: PT Recommendation/Plan: Half-Way Facility OT Recommendation: Inpatient Rehab Facility Assessment/Plan Hospital Day: 11 Jania Redman is a 71 y.o. year old male who presented with tSAH and small IVH after MGLF. Plan Keppra 500 BID x7 days Respiratory care CIWA protocol, etoh withdrawal watch ongoing afib watch - rate controlled, chronic bMRI without structural cause of AMS No neurosurgical issues currently, may be more appropriate for medicine service post ICU needs Appreciate ortho recs for femur fracture, wbat, MRI if fails F/u gi guac, protonix for gi bleed DVT prophylaxis: ok for medical ppx Responsible team (call resident in bold with questions) Vascular Note created by Clarence Soto MD PhD on 06/21/2021 at 6:58 AM. Cosigned by Seth Kiser MD at 06/22/2021 2:43 PM CDT * Tamiko Ray, [employer]IC - 06/21/2021 6:03 AM CDT Neuro Critical Care Progress Note Dx: TBI with trace tSAH and IVH, Encephalopathy HPI: 71M HTN/HL, a-fib on Eliquis, HFrEF (45-50% EF 2020), COPD not on home O2, legally blind, and hearing loss admitted with trace tSAH and IVH following a fall. Admitted OSH with altered LOC. Initial CT neg but subsequent MRI with tr SAH/IVH. Tx to [facility] NSGY service 06/11 where has remained encephalopathic. Medicine consulted for encephalopathy and felt airway was threatened, hence transfer to ICU06/12. Interval Events: -- Discontinued and started Flagyl + bactrim for bacteroides fragilis, susceptibilities sent to [facility] and pending -- C-diff pending -- Shaved fletcher off yesterday and today appreciate quite noticeable R facial weakness but exam otherwise unchanged Vitals Temp Min: 36.5 ??C (97.7 ??F) Max: 37 ??C (98.6 ??F) Pulse Min: 88 Max: 120 NIBP BP Min: 107/101 Max: 164/86 MAP (mmHg) Av.1 Min: 86 Max: 113 A-line No data recorded I/O: Intake/Output Summary (Last 24 hours) at 06/21/2021 0611 Last data filed at 06/21/2021 0500 Gross per 24 hour Intake 2265 ml Output 1500 ml Net 765 ml UOP in past 24 hours: 1,350 mL LABS Recent Labs Lab Units 06/20/21212406/19/21202506/18/21220106/17/21220206/17/21 08 SODIUM mmol/L 143 144 148* 147* 144 POTASSIUM PLASMA mmol/L 3.6 4.4 3.4 4.3 4.3 CHLORIDE mmol/L 110 107 114* 110 110 CO2 mmol/L 28 30 27 31 30 ANIONGAP mmol/L 5 7 7 6 4 GLUCOSE mg/dL 110 133 115 152 150 BUN SERUM mg/dL 12 14 14 17 17 CREATININE mg/dL 0.70* 0.86 0.70* 0.80 0.79* CALCIUM mg/dL 7.3* 9.1 7.4* 8.8 8.6 MAGNESIUM mg/dL -- 2.4 1.8 2.3 2.7* PHOSPHORUS PLASMA mg/dL -- -- 3.7 3.3 2.9 Recent Labs Lab Units 06/20/21212406/19/21202506/18/212201 WBC K/cumm 8.1 7.9 5.3 HEMATOCRIT % 29.1* 35.1* 29.4* HEMOGLOBIN g/dL 9.8* 11.6* 9.7* PLATELETS K/cumm 163 192 141* Recent Labs Lab Units 06/18/212201 ALK PHOS Units/L 91 BILIRUBIN TOTAL mg/dL 0.2 TOTAL PROTEIN g/dL 5.0* ALBUMIN g/dL 2.4* ALT Units/L 12 AST Units/L 18 Recent Labs Lab Units 06/20/2181106/17/21220206/16/212223 PH ART 7.42 7.45 7.46* PCO2 ART mmHg 43 41 40 PO2 ART mmHg 110* 170* 107 HCO3 ART (CALC) mmol/L 29 30 29 O2 SAT ART (NANI) % 99* 99* 99* BASE EXC ART mmol/L 3 4 4 NEURO IMAGING (Most recent) No new imaging (last HCT 06/15/2021) PHYSICAL EXAM: HEENT: Mucous membranes dry, poor dentition. Sclera anicteric. Cardiac: Irregularly irregular. A-fib. No M/R/G. Pulmonary: Even, unlabored respirations. Symmetric chest rise and fall. Coarse throughout. Abdomen: Rounded but non-distended in appearance, hypoactive bowel sounds, soft/non-tender to palpation. Skin: Warm and dry. NEURO EXAM Mental Status Eyes open spontaneously, regards, follows some simple commands, Ox self only, repetition intact Cranial Nerves Pupils small and equal, gaze midline. R Facial weakness, L ptosis, Spontaneous cough, tongue protrudes midline Motor RUE 4/5 with slight drift LUE AG 5/5 BLE at least AG and move spontaneously NEUROLOGICAL Meds: ??? MVI 15 ml daily # Traumatic brain injury w/tSAH/IVH in setting of fall and AC -- neuro checks q4h + sleep hygiene -- s/p Keppra x7 days, seizure precautions -- PT, OT, [employer] consults # Encephalopathy, improving -- suspect multifactorial with alcohol withdrawal (OSH given librium), TBI, hospital admission/delirium, possible Wernicke's -- Encephalopathy labs thus far unrevealing: TSH 0.8, Folate > 20, B12 742, RPR non-reactive, HIV non-reactive, hepatitis panel non-reactive, ammonia < 20 -- cEEG (06/12-06/13) negative for seizures; EEG (06/15) negative for seizures -- delirium precautions -- s/p 9 days folic acid, 3 days 500 mg IV thiamine followed by 250 mg x5 days -- Continue MVI daily # Insomnia -- Sleep hygiene -- Add ramelteon @ 1800 + trazodone 50 mg CARDIOVASCULAR and HEME Meds: ??? amiodarone 200 mg daily ??? Lasix 20 mg daily ??? metoprolol 25 mg q6h ??? pravastatin 40 mg daily TTE (06/13): LA is mildly dilated. Normal RV cavity size and function. LV cavity size is normal. Concentric LV remodeling with normal EF=70-75%. Normal Inferior vena cava. Dilated JOSE RAFAEL=4.7 cm and ascending aorta=3.9 cm. # Atrial fibrillation with RVR -- s/p amio gtt 06/13-06/14; continue amiodarone; f/u with outpatient pharmacovigilance specialist -- metoprolol 25 mg q6h (home dose metoprolol 100 mg BID) -- monitor on tele; goal HR<120 -- ensure K+ and Mg adequately repleted -- acute SAH/IVH currently precludes therapeutic anticoagulation (previously on Eliquis) # Chronic systolic HF -- per cardiology note 01/25/21: asymptomatic mild LV dysfunction, suspect tachycardia mediated -- previously EF 45-50% (2020), now as of 06/13 EF 70-75% -- continue Lasix and metoprolol -- holding home lisinopril # Possible syncope -- + orthostatic symptoms as outpatient per and + orthostatics at OSH -- TTE unrevealing, monitor on telemetry # History of DVT 2019 -- holding home Eliquis most recently reportedly for a-fib, last dose 06/08 -- LED (06/14) negative for DVT # HTN -- holding home lisinopril 40 mg daily for now as respiratory status is tenuous -- SBP <160 # HLD -- continue home pravastatin # Thrombocytopenia,resolved -- possibly nutritional or secondary to long-standing alcohol use -- HIV and hepatitis panel non-reactive, folate 742, copper 0.99 -- CBC daily # Macrocytic anemia -- folate/B12 wnl, likely 2/2 long-standing alcohol use -- CBC daily -- hgb goal >7 PULMONARY Resp Min: 16 Max: 29 SpO2 Min: 92 % Max: 100 % Secretions: thick and copious, able to clear with coughing, no desaturations Oxygen: On HHFT 40% Meds: ??? none # History of COPD -- extubated 06/18 -- continue HHFT for humidity -- cough assist QID -- SPO2 goal 88-92% -- mobilize RENAL Meds: ??? terazosin 20 mg daily # BPH -- continue home terazosin -- continue coombs (placed by Urology) -- Void trial # Hypokalemia -- Repleted with 40 mEQ -- Ensure >4.0 in s/o A-fib # Hypomagnesemia -- 1.7 repleted with 4g IV Mag -- follow levels daily GI and ENDO Meds: ??? Colace 100 mg BID (held) ??? Protonix 40 mg Daily ??? senna 8.8 mg BID (held) Diet: Diet, Tube Feeding No Tray Jevity 1.5 veronica (NGT); 60; 150; Water; Every 4 hours IV fluids: SL IVF Flushes:none Last BM: 06/20 # Nutrition/Dysphagia -- Continue Jevity 1.5 @ 60 w/ FWF -- [employer] following: Re-evaluated today at bedside, pt is aspirating on thin liquids, will re-eval on Saturday # Diarrhea -- likely iatrogenic -- Hold BR -- Send c-diff (on clinda) # GERD -- continue PPI INFECTION RELEVANT/MOST RECENT MICRO LAB DATA: ?? Blood cultures (06/14) NG ?? Respiratory culture (06/16): Moderate mixed bacterial clifton seen on gram stain ?? COVID-19 RNA (06/12) negative ?? UA (06/12) negative ?? Hepatitis panel (06/12): NG ?? Scrotal abscess cultures (06/17): Abundant Bacteroides fragilis, rare mixed microorganisms (susceptibilities pending) Meds: ??? clindamycin 600 mg q8h (06/18-06/20 ) ??? Flagyl 500 mg Q8H (06/20 - ??? Bactrim BID (06/20 - # Bacteroides Fragilis Scrotal abscess with cellulitis # Left hydrocele -- US scrotum (06/17) with left hydrocele and cellulitis -- CT pelvis w contrast (06/17) positive for small left scrotal hydrocele, negative for soft tissue gas, and positive for non-displaced trochanteric fracture -- f/u cultures and susceptibilities -- Urology consulted:10 day course antbx and should heal on its own, call if infection appears worse or changes -- Clindamycin discontinued, continue Flagyl and Bactrim, f/u susceptibilities MUSCULOSKELETAL # Left greater trochanteric fracture -- Ortho consulted;WBAT LLE and no need for MRI, can trial mobilization with PT. If fails due to pain can get MRI of L hip. -- Ortho signed off. ACCESS Lines ?? PIV x2 ?? NG tube Coombs ??? 06/13 Coude (placed by urology but not considered difficult) VTE Prophylaxis Last Venous Doppler: 06/14/2021 negative Prophylaxis: SCDs, SQH 5,000 units q8h CODE STATUS: Full Code Disposition: NNICU for today, potentially transfer tomorrow pending secretions Cosigned by Elver Rodriguez MD PhD at 06/22/2021 2:13 PM CDT * Tamiko Ray NP - 06/20/2021 6:53 AM CDT Neuro Critical Care Progress Note Dx: Encephalopathy 71M HTN/HL, a-fib on Eliquis, HFrEF (45-50% EF 2020), COPD not on home O2, legally blind, and hearing loss admitted with trace tSAH and IVH following a fall. Admitted OSH with altered LOC. Initial CTneg but subsequent MRI with tr SAH/IVH. Tx to [facility] service 06/11 where has remained encephalopathic. Medicine consulted for encephalopathy and felt airway was threatened, hence transfer to ICU 06/12. Interval Events: -- Per ortho, WBAT LLE and no need for MRI, can trial mobilization with PT. If fails due to pain can get MRI of L hip. O rtho signed off. -- Abscess from scrotum: abundant GPC and mod GNB abundant bacteroides fragilis, a molecular markerassociated with carbapenem resistance has been detected in this isolate of bacteroides fragilis Vitals Temp Min: 36.4 ??C (97.5 ??F) Max: 37 ??C (98.6 ??F) Pulse Min: 80 Max: 113 NIBP BP Min: 110/84 Max: 168/119 MAP (mmHg) Av.3 Min: 93 Max: 134 A-line No data recorded I/O: Intake/Output Summary (Last 24 hours) at 06/20/2021 0653 Last data filed at 06/20/2021 0610 Gross per 24 hour Intake 1650 ml Output 1825 ml Net -175 ml UOP in past 24 hours: 1,825 ml LABS Recent Labs Lab Units 06/19/21202506/18/21220106/17/2106/17/22 0817 SODIUM mmol/L 144 148* 147* 144 POTASSIUM PLASMA mmol/L 4.4 3.4 4.3 4.3 CHLORIDE mmol/L 107 114* 110 110 CO2 mmol/L 30 27 31 30 ANIONGAP mmol/L 7 7 6 4 GLUCOSE mg/dL 133 115 152 150 BUN SERUM mg/dL 14 14 17 17 CREATININE mg/dL 0.86 0.70* 0.80 0.79* CALCIUM mg/dL 9.1 7.4* 8.8 8.6 MAGNESIUM mg/dL -- 1.8 2.3 2.7* PHOSPHORUS PLASMA mg/dL -- 3.7 3.3 2.9 Recent Labs Lab Units 06/19/21202506/18/21220106/17/212202 WBC K/cumm 7.9 5.3 6.6 HEMATOCRIT % 35.1* 29.4* 33.0* HEMOGLOBIN g/dL 11.6* 9.7* 10.7* PLATELETS K/cumm 192 141* 151 Recent Labs Lab Units 06/18/212201 ALK PHOS Units/L 91 BILIRUBIN TOTAL mg/dL 0.2 TOTAL PROTEIN g/dL 5.0* ALBUMIN g/dL 2.4* ALT Units/L 12 AST Units/L 18 Recent Labs Lab Units 06/17/21220206/16/21222306/15/21 0422 PH ART 7.45 7.46* 7.45 PCO2 ART mmHg 41 40 37 PO2 ART mmHg 170* 107 140* HCO3 ART (CALC) mmol/L 30 29 26 O2 SAT ART (NANI) % 99* 99* 100* BASE EXC ART mmol/L 4 4 2 NEURO IMAGING (Most recent) No new imaging (last HCT 06/15/2021) PHYSICAL EXAM: HEENT: Mucous membranes dry, poor dentition. Sclera anicteric. Cardiac: Irregularly irregular. A-fib. No M/R/G. Pulmonary: Even, unlabored respirations. Symmetric chest rise and fall. Coarse throughout. Abdomen: Rounded but non-distended in appearance, hypoactive bowel sounds, soft/non-tender to palpation. Skin: Warm and dry. NEURO EXAM Mental Status Opens eyes to voice, regards, follows some simple commands, Ox self only Cranial Nerves Surgical/irregular pupils, gaze midline. Face grossly symmetric. Minimal speech output, Spontaneouscough, tongue protrudes midline Motor Moves all extremities spontaneously and symmetrically, at least anti-gravity throughout NEUROLOGICAL Meds: ??? MVI 15 ml daily # Traumatic brain injury w/tSAH/IVH in setting of fall and AC -- neuro checks q4h + sleep hygiene -- s/p Keppra x7 days, seizure precautions -- PT, OT, [employer] consults # Encephalopathy, improving -- suspect multifactorial with alcohol withdrawal (OSH given librium), TBI, hospital admission/delirium, possible Wernicke's -- Encephalopathy labs thus far unrevealing: TSH 0.8, Folate > 20, B12 742, RPR non-reactive, HIV non-reactive, hepatitis panel non-reactive, ammonia < 20 -- continue MVI, d/c folic acid and thiamine today -- cEEG (06/12-06/13) negative for seizures; EEG (06/15) negative for seizures -- delirium precautions CARDIOVASCULAR and HEME Meds: ??? amiodarone 200 mg daily ??? Lasix 20 mg daily ??? metoprolol 25 mg q6h ??? pravastatin 40 mg daily TTE (06/13): LA is mildly dilated. Normal RV cavity size and function. LV cavity size is normal. Concentric LV remodeling with normal EF=70-75%. Normal Inferior vena cava. Dilated JOSE RAFAEL=4.7 cm and ascending aorta=3.9 cm. # Atrial fibrillation with RVR -- s/p amio gtt 06/13-06/14; continue amiodarone; f/u with outpatient pharmacovigilance specialist -- metoprolol 25 mg q6h (home dose metoprolol 100 mg BID) -- monitor on tele; goal HR<120 -- ensure K+ and Mg adequately repleted -- acute SAH/IVH currently precludes therapeutic anticoagulation (previously on Eliquis) # Chronic systolic HF -- per cardiology note 01/25/21: asymptomatic mild LV dysfunction, suspect tachycardia mediated -- previously EF 45-50% (2020), now as of 06/13 EF 70-75% -- continue Lasix and metoprolol -- holding home lisinopril # Possible syncope -- + orthostatic symptoms as outpatient per and + orthostatics at OSH -- TTE unrevealing, monitor on telemetry # History of DVT 2019 -- holding home Eliquis most recently reportedly for a-fib, last dose 06/08 -- LED (06/14) negative for DVT # HTN -- holding home lisinopril 40 mg daily for now as respiratory status is tenuous -- SBP <160 # HLD -- continue home pravastatin # Thrombocytopenia,resolved -- platelets 192 < 141 -- possibly nutritional or secondary to long-standing alcohol use -- HIV and hepatitis panel non-reactive, folate 742, copper 0.99 -- CBC daily # Macrocytic anemia -- folate/B12 wnl, likely 2/2 long-standing alcohol use -- CBC daily -- hgb goal >7 PULMONARY Resp Min: 17 Max: 27 SpO2 Min: 92 % Max: 100 % Meds: ??? none # History of COPD -- extubated 06/18 -- continue HHFT for humidity -- cough assist QID -- SPO2 goal 88-92% -- mobilize when able RENAL Meds: ??? terazosin 20 mg daily # BPH -- continue home terazosin -- continue coombs (placed by Urology) -- Void trial # Hypernatremia # Hyperchloremia -- Resolved -- Continue FWF -- BMP daily GI and ENDO Meds: ??? Colace 100 mg BID ??? Protonix 40 mg Daily ??? senna 8.8 mg BID Diet: Diet, Tube Feeding No Tray Jevity 1.5 veronica (NGT); 60; 150; Water; Every 4 hours IV fluids: SL IVF Flushes:none Last BM: 06/18 x2 # Nutrition/Dysphagia -- Continue Jevity 1.5 @ 61 w/ FWF -- [employer] following # Diarrhea -- likely iatrogenic -- Hold BR -- Send c-diff (on clinda) # GERD -- continue PPI INFECTION RELEVANT/MOST RECENT MICRO LAB DATA: ?? Blood cultures (06/14) NG ?? Respiratory culture (06/16): Moderate mixed bacterial clifton seen on gram stain ?? COVID-19 RNA (06/12) negative ?? UA (06/12) negative ?? Hepatitis panel (06/12): NG ?? Scrotal abscess cultures (06/17): Abundant Bacteroides fragilis, rare mixed microorganisms (susceptibilities pending) Meds: ??? clindamycin 600 mg q8h (06/18-06/20 ) # Scrotal abscess with cellulitis # Left hydrocele -- US scrotum (06/17) with left hydrocele and cellulitis -- CT pelvis w contrast (06/17) positive for small left scrotal hydrocele, negative for soft tissue gas, and positive for non-displaced trochanteric fracture -- f/u cultures and susceptibilities -- Urology consulted, f/u recommendations: 10 day course antbx, call if infection appears worse or changes -- D/c clinda and start Flagyl and Bactrim, f/u susceptibilities MUSCULOSKELETAL # Left greater trochanteric fracture -- Ortho consulted;WBAT LLE and no need for MRI, can trial mobilization with PT. If fails due to pain can get MRI of L hip. -- Ortho signed off. ACCESS Lines ?? PIV x2 ?? NG tube Coombs ??? 06/13 Coude (placed by urology but not considered difficult) VTE Prophylaxis Last Venous Doppler: 06/14/2021 negative Prophylaxis: SCDs, SQH 5,000 units q8h CODE STATUS: Full Code Disposition: NNICU Cosigned by Elver Rodriguez MD PhD at 06/22/2021 2:13 PM CDT * Clarence Soto MD PhD - 06/20/2021 6:52 AM CDT Neurosurgery Daily Progress Note 06/20/2021 Hospital Course 06/11 Admitted. HCT with stable ventricular size, small IVH in occipital horns. 06/12: TTSDU, then TTICU for persistently depressed mental status. Repeat head CT stable. Metop for Afib w RVR. Started on high dose thiamine. EEG negative, planning for continuous. 06/13 placed on amio gtt for afib w/ RVR; cEEG d/c'd; TTE wnl 06/14 brain MRI w stable small SAH/IVH, no other infarct/lesion. Hypoxemia and desaturation, intubated overnight, HCT stable. 06/15 cEEG w/ mod gen slowing 06/16 joel 06/[address] pelvis w/ left small nondisplaced greater trochanter fracture 06/19 Ortho- WBAT LLE, no need for MRI unless pain w ambulation, s/o. Objective Physical Exam: not sedated, on HH face tent EO spont, regards, follows commands Oriented x2 to choice PERRL, gaze conjugate, face symmetric Spont and symmetric extremity movement at least antigravity Vitals: 24hr min/max vitals: Temp Min: 36.4 ??C (97.5 ??F) Max: 37 ??C (98.6 ??F) Pulse Min: 80 Max: 113 Resp Min: 17 Max: 27 SpO2 Min: 92 % Max: 100 % MAP (mmHg) Min: 93 Max: 134 Intake and output: I/O last 2 completed shifts: In: 1295 [I.V.:30; NG/GT:1065; IV Piggyback:200] Out: 1685 [Urine:1685] Medications: Scheduled Scheduled Medications Medication Dose Route Frequency ??? amiodarone (PACERONE) tablet 200 mg 200 mg feeding tube Daily ??? clindamycin (CLEOCIN) 600 mg/50 mL in sodium chloride 0.9% (premix) piggyback 600 mg 600 mg intravenous Q8H MONET ??? docusate (COLACE) 10 mg/mL oral liquid 100 mg 100 mg feeding tube BID ??? folic acid (FOLVITE) tablet 1 mg 1 mg feeding tube Daily ??? furosemide (LASIX) tablet 20 mg 20 mg feeding tube Daily ??? [Held by Provider] heparin 5,000 unit/mL injection 5,000 Units 5,000 Units subcutaneous Q8H MONET ??? metoprolol tartrate (LOPRESSOR) immediate release tablet 25 mg 25 mg feeding tube Q6H ??? qsmgvexg-bix-bpufzox gluconate (CENTRUM) 0.6 mg iron/mL oral liquid 15 mL 15 mL feeding tube Daily ??? pantoprazole (PROTONIX) 4 mg/mL injection 40 mg 40 mg intravenous BID ??? pravastatin (PRAVACHOL) tablet 40 mg 40 mg feeding tube Daily ??? senna 1.76 mg/mL syrup 8.8 mg 8.8 mg feeding tube BID ??? sodium chloride 0.9% flush 0.5-20 mL 0.5-20 mL intra-catheter Q8H MONET ??? sodium chloride 0.9% flush 0.5-20 mL 0.5-20 mL intra-catheter Q8H MONET ??? terazosin (HYTRIN) capsule 20 mg 20 mg feeding tube Nightly ??? thiamine (VITAMIN B1) tablet 100 mg 100 mg feeding tube Daily As needed PRN Medications Medication Dose Route Frequency Last Admin ??? acetaminophen (TYLENOL) tablet 650 mg 650 mg feeding tube Q4H PRN 650 mg at 06/18/21 0035 ??? bisacodyL (DULCOLAX) suppository 10 mg 10 mg rectal Daily PRN ??? levalbuterol (XOPENEX) 1.25 mg/3 mL nebulizer solution 1.25 mg 1.25 mg nebulization Q6H PRN (RT) 1.25 mg at 06/14/21 0914 ??? ondansetron (ZOFRAN) injection 4 mg 4 mg intravenous Q6H PRN ??? sodium chloride 0.9% flush 0.5-20 mL 0.5-20 mL intra-catheter PRN ??? sodium chloride 0.9% flush 0.5-20 mL 0.5-20 mL intra-catheter PRN Labs: Lab Results Component Value Date SODIUM 144 06/19/2021 SODIUM 148 (H) 06/18/2021 SODIUM 147 (H) 06/17/2021 Lab Results Component Value Date GLUCOSE 133 06/19/2021 CALCIUM 9.1 06/19/2021 POTASSIUM 4.4 06/19/2021 CO2 30 06/19/2021 CHLORIDE 107 06/19/2021 BUNSER 14 06/19/2021 CREATININE 0.86 06/19/2021 Lab Results Component Value Date WBC 7.9 06/19/2021 WBC 5.3 06/18/2021 WBC 6.6 06/17/2021 HGB 11.6 (L) 06/19/2021 HGB 9.7 (L) 06/18/2021 HGB 10.7 (L) 06/17/2021 HCT 35.1 (L) 06/19/2021 HCT 29.4 (L) 06/18/2021 HCT 33.0 (L) 06/17/2021 LABPLAT 192 06/19/2021 LABPLAT 141 (L) 06/18/2021 LABPLAT 151 06/17/2021 Lab Results Component Value Date INR 1.1 06/11/2021 INR 1.1 07/13/2020 INR 1.6 (H) 02/21/2020 PT 12.5 06/11/2021 PT 12.3 07/13/2020 PT 17.9 (H) 02/21/2020 APTT 31 06/11/2021 APTT 80 (H) 02/20/2020 APTT 26 02/20/2020 No components found for: TROPONIN PT/OT assessment: PT Recommendation/Plan: Half-Way Facility OT Recommendation: Inpatient Rehab Facility Assessment/Plan Hospital Day: 10 Jania Redman is a 71 y.o. year old male who presented with tSAH and small IVH after MGLF. Plan Keppra 500 BID x7 days Respiratory care CIWA protocol, etoh withdrawal watch ongoing afib watch - rate controlled, chronic bMRI without structural cause of AMS No neurosurgical issues currently, may be more appropriate for medicine service post ICU needs Appreciate ortho recs for femur fracture, wbat, MRI if fails F/u gi guac, protonix for gi bleed DVT prophylaxis: ok for medical ppx Responsible team (call resident in bold with questions) Vascular Note created by Clarence Soto MD PhD on 06/20/2021 at 6:52 AM. Cosigned by Seth Kiser MD at 06/22/2021 2:44 PM CDT * Heron Sun MD - 06/19/2021 9:27 PM CDT Brief Ortho Note: Pt will be WBAT LLE and does not need MRI. He can trial mobilization with PT. If he fails due to pain we can then get an MRI of the L hip. Ortho will sign off at this time. Heron Sun MD MS PGY-3, Orthopaedic Surgery [facility] [employer] [facility] P: [phone] * Lindy Landis, PT - 06/19/2021 1:41 PM CDT 06/19/21 1341 General PT Missed Visit Reason MD/RN Hold;Agitated * Wellington Crenshaw, [employer]TENA[employer]CE MECH[employer]IC - 06/19/2021 7:38 AM CDT Neuro Critical Care Progress Note Dx: Encephalopathy 71M HTN/HL, a-fib on Eliquis, HFrEF (45-50% EF 2020), COPD not on home O2, legally blind, and hearing loss admitted with trace tSAH and IVH following a fall. Admitted OSH with altered LOC. Initial CTneg but subsequent MRI with tr SAH/IVH. Tx to [facility] service 06/11 where has remained encephalopathic. Medicine consulted for encephalopathy and felt airway was threatened, hence transfer to ICU 06/12. Interval Events: -- extubated -- NPO @ [place] per Ortho team Vitals Temp Min: 36.4 ??C (97.5 ??F) Max: 37.6 ??C (99.7 ??F) Pulse Min: 76 Max: 114 NIBP BP Min: 104/83 Max: 160/101 MAP (mmHg) Av.7 Min: 90 Max: 141 A-line No data recorded I/O: Intake/Output Summary (Last 24 hours) at 06/19/2021 0740 Last data filed at 06/19/2021 0625 Gross per 24 hour Intake 1725 ml Output 1240 ml Net 485 ml UOP in past 24 hours: 1,240 ml LABS Recent Labs Lab Units 03/220106/17/21220206/17/21 0817 SODIUM mmol/L 148* 147* 144 POTASSIUM PLASMA mmol/L 3.4 4.3 4.3 CHLORIDE mmol/L 114* 110 110 CO2 mmol/L 27 31 30 ANIONGAP mmol/L 7 6 4 GLUCOSE mg/dL 115 152 150 BUN SERUM mg/dL 14 17 17 CREATININE mg/dL 0.70* 0.80 0.79* CALCIUM mg/dL 7.4* 8.8 8.6 MAGNESIUM mg/dL 1.8 2.3 2.7* PHOSPHORUS PLASMA mg/dL 3.7 3.3 2.9 Recent Labs Lab Units 06/18/21220106/17/21220206/16/21 2135 WBC K/cumm 5.3 6.6 5.3 HEMATOCRIT % 29.4* 33.0* 27.5* HEMOGLOBIN g/dL 9.7* 10.7* 8.9* PLATELETS K/cumm 141* 151 101* Recent Labs Lab Units 06/18/21220106/12/21 1331 06/12/21 1144 ALK PHOS Units/L 91 86 See Comment BILIRUBIN TOTAL mg/dL 0.2 0.7 See Comment TOTAL PROTEIN g/dL 5.0* 5.5* See Comment ALBUMIN g/dL 2.4* 3.0* See Comment ALT Units/L 12 11 See Comment AST Units/L 18 25 See Comment Recent Labs Lab Units 06/17/21220206/16/21222306/15/21 0422 PH ART 7.45 7.46* 7.45 PCO2 ART mmHg 41 40 37 PO2 ART mmHg 170* 107 140* HCO3 ART (CALC) mmol/L 30 29 26 O2 SAT ART (NANI) % 99* 99* 100* BASE EXC ART mmol/L 4 4 2 NEURO IMAGING (Most recent) No new imaging (last HCT 06/15/2021) PHYSICAL EXAM: HEENT: Mucous membranes dry, poor dentition. Sclera anicteric. Cardiac: Irregularly irregular. A-fib. No M/R/G. Pulmonary: Even, unlabored respirations. Symmetric chest rise and fall. Coarse throughout. Abdomen: Rounded but non-distended in appearance, hypoactive bowel sounds, soft/non-tender to palpation. Skin: Warm and dry. NEURO EXAM Mental Status Opens eyes to voice, regards, follows some simple commands, Ox self only Cranial Nerves Surgical/irregular pupils, gaze midline. Face grossly symmetric. Minimal speech output, only statesname. Spontaneous cough. Motor Moves all extremities spontaneously and symmetrically, at least anti-gravity throughout NEUROLOGICAL Meds: ??? folic acid 1 mg daily ??? MVI 15 ml daily ??? thiamine 100 mg daily # Traumatic brain injury w/tSAH/IVH in setting of fall and AC -- neuro checks q4h + sleep hygiene -- s/p Keppra x7 days, seizure precautions -- PT, OT, [employer] consults # Encephalopathy, improving -- suspect multifactorial with alcohol withdrawal (OSH given librium), TBI, hospital admission/delirium, possible Wernicke's -- Encephalopathy labs thus far unrevealing: TSH 0.8, Folate > 20, B12 742, RPR non-reactive, HIV non-reactive, hepatitis panel non-reactive, ammonia < 20 -- continue MVI, folate, thaimine -- cEEG (06/12-06/13) negative for seizures; EEG (06/15) negative for seizures -- delirium precautions CARDIOVASCULAR and HEME Meds: ??? amiodarone 200 mg daily ??? Lasix 20 mg daily ??? metoprolol 25 mg q6h ??? pravastatin 40 mg daily TTE (06/13): LA is mildly dilated. Normal RV cavity size and function. LV cavity size is normal. Concentric LV remodeling with normal EF=70-75%. Normal Inferior vena cava. Dilated JOSE RAFAEL=4.7 cm and ascending aorta=3.9 cm. # Atrial fibrillation with RVR -- s/p amio gtt 06/13-06/14; continue amiodarone; f/u with outpatient pharmacovigilance specialist -- metoprolol 25 mg q6h (home dose metoprolol 100 mg BID) -- monitor on tele; goal HR<120 -- ensure K+ and Mg adequately repleted -- acute SAH/IVH currently precludes therapeutic anticoagulation (previously on Eliquis) # Chronic systolic HF -- per cardiology note 01/25/21: asymptomatic mild LV dysfunction, suspect tachycardia mediated -- previously EF 45-50% (2020), now as of 06/13 EF 70-75% -- continue Lasix and metoprolol -- holding home lisinopril # Possible syncope -- + orthostatic symptoms as outpatient per and + orthostatics at OSH -- TTE unrevealing, monitor on telemetry # History of DVT 2019 -- holding home Eliquis most recently reportedly for a-fib, last dose 06/08 -- LED (06/14) negative for DVT # HTN -- holding home lisinopril 40 mg daily -- SBP <160 # HLD -- continue home pravastatin # Thrombocytopenia, mild -- possibly nutritional or secondary to long-standing alcohol use -- HIV and hepatitis panel non-reactive, folate 742, copper 0.99 -- CBC daily # Macrocytic anemia -- folate/B12 wnl, likely 2/2 long-standing alcohol use -- CBC daily -- hgb goal >7 PULMONARY Resp Min: 17 Max: 26 SpO2 Min: 84 % Max: 100 % Meds: ??? none # History of COPD -- extubated 06/18 -- continue HHFT for humidity -- start cough assist QID -- SPO2 goal 88-92% -- mobilize when able RENAL Meds: ??? terazosin 20 mg daily # BPH -- continue home terazosin -- continue coombs (placed by Urology) # Hypernatremia # Hyperchloremia -- holding FWF as NPO for possible OR -- resume FWF when able -- BMP daily GI and ENDO Meds: ??? Colace 100 mg BID ??? Protonix 40 mg daily ??? senna 8.8 mg BID Diet: NPO Diet IV fluids: SL IVF Flushes:none Last BM: 06/18 x2 # Nutrition/Dysphagia -- NPO for possible OR -- continue current bowel regimen # GERD -- continue PPI INFECTION RELEVANT/MOST RECENT MICRO LAB DATA: ?? Blood cultures (06/14) NG ?? Respiratory culture (06/16): Moderate mixed bacterial clifton seen on gram stain ?? COVID-19 RNA (06/12) negative ?? UA (06/12) negative ?? Hepatitis panel (06/12): NG ?? Scrotal abscess cultures (06/17): Abundant Bacteroides fragilis, rare mixed microorganisms (susceptibilities pending) Meds: ??? clindamycin 600 mg q8h (06/18- ) # Scrotal abscess with cellulitis # Left hydrocele -- US scrotum (06/17) with left hydrocele and cellulitis -- CT pelvis w contrast (06/17) positive for small left scrotal hydrocele, negative for soft tissue gas, and positive for non-displaced trochanteric fracture -- f/u cultures and susceptibilities -- continue clindamycin 600 mg q8h -- Urology consulted, f/u recommendations MUSCULOSKELETAL # Left greater trochanteric fracture -- Ortho consulted; f/u recommendations -- NPO for possible OR today ACCESS Lines ?? PIV x2 ?? NG tube Coombs ??? 06/13 Coude (placed by urology but not considered difficult) VTE Prophylaxis Last Venous Doppler: 06/14/2021 negative Prophylaxis: SCDs, SQH 5,000 units q8h--> currently on hold for OR CODE STATUS: Full Code Disposition: NNICU Cosigned by Elver Rodriguez MD PhD at 06/22/2021 2:12 PM CDT * Clarence Soto MD PhD - 06/19/2021 6:50 AM CDT Neurosurgery Daily Progress Note 06/19/2021 Hospital Course 06/11 Admitted. HCT with stable ventricular size, small IVH in occipital horns. 06/12: TTSDU, then TTICU for persistently depressed mental status. Repeat head CT stable. Metop for Afib w RVR. Started on high dose thiamine. EEG negative, planning for continuous. 06/13 placed on amio gtt for afib w/ RVR; cEEG d/c'd; TTE wnl 06/14 brain MRI w stable small SAH/IVH, no other infarct/lesion. Hypoxemia and desaturation, intubated overnight, HCT stable. 06/15 cEEG w/ mod gen slowing 06/[address] pelvis w/ left small nondisplaced greater trochanter fracture Objective Physical Exam: Intubated, not sedated EO spont, regard, follows commands Oriented x1 to choice PERRL, gaze conjugate, face taped Spont and symmetric extremity movement at least antigravity Vitals: 24hr min/max vitals: Temp Min: 36.4 ??C (97.5 ??F) Max: 37.6 ??C (99.7 ??F) Pulse Min: 76 Max: 114 Resp Min: 14 Max: 26 SpO2 Min: 84 % Max: 100 % MAP (mmHg) Min: 90 Max: 141 Intake and output: I/O last 2 completed shifts: In: 1915 [I.V.:30; NG/GT:1765; IV Piggyback:120] Out: 1250 [Urine:1250] Medications: Scheduled Scheduled Medications Medication Dose Route Frequency ??? amiodarone (PACERONE) tablet 200 mg 200 mg feeding tube Daily ??? clindamycin (CLEOCIN) 600 mg/50 mL in sodium chloride 0.9% (premix) piggyback 600 mg 600 mg intravenous Q8H MONET ??? docusate (COLACE) 10 mg/mL oral liquid 100 mg 100 mg feeding tube BID ??? folic acid (FOLVITE) tablet 1 mg 1 mg feeding tube Daily ??? furosemide (LASIX) tablet 20 mg 20 mg feeding tube Daily ??? [Held by Provider] heparin 5,000 unit/mL injection 5,000 Units 5,000 Units subcutaneous Q8H MONET ??? metoprolol tartrate (LOPRESSOR) immediate release tablet 25 mg 25 mg feeding tube Q6H ??? baljkjxd-rzl-kqyqkzq gluconate (CENTRUM) 0.6 mg iron/mL oral liquid 15 mL 15 mL feeding tube Daily ??? pantoprazole (PROTONIX) 4 mg/mL injection 40 mg 40 mg intravenous Q24H MONET ??? pravastatin (PRAVACHOL) tablet 40 mg 40 mg feeding tube Daily ??? senna 1.76 mg/mL syrup 8.8 mg 8.8 mg feeding tube BID ??? sodium chloride 0.9% flush 0.5-20 mL 0.5-20 mL intra-catheter Q8H MONET ??? sodium chloride 0.9% flush 0.5-20 mL 0.5-20 mL intra-catheter Q8H MONET ??? terazosin (HYTRIN) capsule 20 mg 20 mg feeding tube Nightly ??? thiamine (VITAMIN B1) tablet 100 mg 100 mg feeding tube Daily As needed PRN Medications Medication Dose Route Frequency Last Admin ??? acetaminophen (TYLENOL) tablet 650 mg 650 mg feeding tube Q4H PRN 650 mg at 06/18/21 0035 ??? bisacodyL (DULCOLAX) suppository 10 mg 10 mg rectal Daily PRN ??? levalbuterol (XOPENEX) 1.25 mg/3 mL nebulizer solution 1.25 mg 1.25 mg nebulization Q6H PRN (RT) 1.25 mg at 06/14/21 0914 ??? ondansetron (ZOFRAN) injection 4 mg 4 mg intravenous Q6H PRN ??? sodium chloride 0.9% flush 0.5-20 mL 0.5-20 mL intra-catheter PRN ??? sodium chloride 0.9% flush 0.5-20 mL 0.5-20 mL intra-catheter PRN Labs: Lab Results Component Value Date SODIUM 148 (H) 06/18/2021 SODIUM 147 (H) 06/17/2021 SODIUM 144 06/17/2021 Lab Results Component Value Date GLUCOSE 115 06/18/2021 CALCIUM 7.4 (L) 06/18/2021 POTASSIUM 3.4 06/18/2021 CO2 27 06/18/2021 CHLORIDE 114 (H) 06/18/2021 BUNSER 14 06/18/2021 CREATININE 0.70 (L) 06/18/2021 Lab Results Component Value Date WBC 5.3 06/18/2021 WBC 6.6 06/17/2021 WBC 5.3 06/16/2021 HGB 9.7 (L) 06/18/2021 HGB 10.7 (L) 06/17/2021 HGB 8.9 (L) 06/16/2021 HCT 29.4 (L) 06/18/2021 HCT 33.0 (L) 06/17/2021 HCT 27.5 (L) 06/16/2021 LABPLAT 141 (L) 06/18/2021 LABPLAT 151 06/17/2021 LABPLAT 101 (L) 06/16/2021 Lab Results Component Value Date INR 1.1 06/11/2021 INR 1.1 07/13/2020 INR 1.6 (H) 02/21/2020 PT 12.5 06/11/2021 PT 12.3 07/13/2020 PT 17.9 (H) 02/21/2020 APTT 31 06/11/2021 APTT 80 (H) 02/20/2020 APTT 26 02/20/2020 No components found for: TROPONIN PT/OT assessment: PT Recommendation/Plan: Half-Way Facility OT Recommendation: Inpatient Rehab Facility Assessment/Plan Hospital Day: 9 Jania Redman is a 71 y.o. year old male who presented with tSAH and small IVH after MGLF. Plan Keppra 500 BID x7 days Respiratory care CIWA protocol, etoh withdrawal watch ongoing afib watch - rate controlled, chronic bMRI without structural cause of AMS No neurosurgical issues currently, may be more appropriate for medicine service post ICU needs Appreciate ortho recs for femur fracture, will obtain hip mri when stable DVT prophylaxis: ok for medical ppx Responsible team (call resident in bold with questions) Vascular Note created by Clarence Soto MD PhD on 06/19/2021 at 6:50 AM. Cosigned by Seth Kiser MD at 06/19/2021 10:01 PM CDT * Elver Rodriguez MD PhD - 06/18/2021 1:34 PM CDT Critical Care Attending Note I have seen and examined this patient on the day of service. I have reviewed and confirmed the history, physical exam, laboratory and radiographic data with the house staff, bedside nursing, and nurse practitioners. I have reviewed and discussed my treatment plan with the ICU team and other medical/practice consultant staff as documented. Patient Briefly, this is a 71 year old man with a history of HTN, atrial fibrillation (on eliquis, HFrEF, and COPD who presents to the ICU in the setting of a TBI with SAH and IVH and persistent encephalopathy with respiratory insufficiency. Events Mental status exam remains improved. Ultrasound and CT with scrotal hydocele Exam Eyes open to mild stimulation. Follows commands briskly. Regards. Plan Summary #Traumatic SAH/IVH. Continue keppra. Continue close neurologic monitoring #Encephalopathy: Improving substantially. Likely related to TBI/delerium. # Acute respiratory failure: Will plan on trial of extubation today. Some secretions but strong cough. #A fib with RVR: Continue amiodarone/metoprolol #Hydrocele with associated scrotal abscess/cellulitis. Plan on 10 day course of clindamycin. Urology has evaluated. F/U Recs. #Non-displaced trochanteric fracture: Will discuss with orthopaedic surgery. Critical Care Time: I have spent 41 minutes in full attendance with this critically ill patient making frequent reassessments and decisions regarding this patient's complex medical care. Critical care time was exclusive of separately billable procedures, treating other patients and teaching time. Critical care was necessary to treat or prevent imminent or life-threatening deterioration due to acute respiratory failure and required the interventions as described above including ventilator management. * Patricia Ferrer NP - 06/18/2021 7:21 AM CDT Neuro Critical Care Progress Note Dx: Encephalopathy 71M HTN/HL, a-fib on Eliquis, HFrEF (45-50% EF 2020), COPD not on home O2, legally blind, and hearing loss admitted with trace tSAH and IVH following a fall. Admitted OSH with altered LOC. Initial CTneg but subsequent MRI with tr SAH/IVH. Tx to [facility] service 06/11 where has remained encephalopathic. Medicine consulted for encephalopathy and felt airway was threatened, hence transfer to ICU 06/12. Interval Events: Scrotal abscess: -- US scrotum, CT pelvis (see results below), cultures obtained and started on CFTX. Urology consulted Vitals Temp Min: 36.5 ??C (97.7 ??F) Max: 37.5 ??C (99.5 ??F) Pulse Min: 83 Max: 117 NIBP BP Min: 100/72 Max: 167/109 MAP (mmHg) Av.3 Min: 74 Max: 128 A-line No data recorded I/O: Intake/Output Summary (Last 24 hours) at 06/18/2021 0723 Last data filed at 06/18/2021 0700 Gross per 24 hour Intake 2095 ml Output 1170 ml Net 925 ml UOP in past 24 hours: 1170 mL LABS Recent Labs Lab Units 06/17/21220206/17/2181606/16/212134 SODIUM mmol/L 147* 144 149* POTASSIUM PLASMA mmol/L 4.3 4.3 3.0* CHLORIDE mmol/L 110 110 118* CO2 mmol/L 31 30 26 ANIONGAP mmol/L 6 4 5 GLUCOSE mg/dL 152 150 149 BUN SERUM mg/dL 17 17 15 CREATININE mg/dL 0.80 0.79* 0.69* CALCIUM mg/dL 8.8 8.6 6.9* MAGNESIUM mg/dL 2.3 2.7* 1.6 PHOSPHORUS PLASMA mg/dL 3.3 2.9 2.5 Recent Labs Lab Units 06/17/21220206/16/21213406/15/21223306/12/21 1144 06/11/212028 WBC K/cumm 6.6 5.3 7.6 < > 7.1 HEMATOCRIT % 33.0* 27.5* 34.0* < > 42.7 HEMOGLOBIN g/dL 10.7* 8.9* 12.1* < > 14.9 PLATELETS K/cumm 151 101* 126* < > 137* APTT sec -- -- -- -- 31 INR -- -- -- -- 1.1 < > = values in this interval not displayed. Recent Labs Lab Units 06/12/21 1331 06/12/21 1144 ALK PHOS Units/L 86 See Comment BILIRUBIN TOTAL mg/dL 0.7 See Comment TOTAL PROTEIN g/dL 5.5* See Comment ALBUMIN g/dL 3.0* See Comment ALT Units/L 11 See Comment AST Units/L 25 See Comment Recent Labs Lab Units 06/17/21220206/16/21222306/15/21 0422 PH ART 7.45 7.46* 7.45 PCO2 ART mmHg 41 40 37 PO2 ART mmHg 170* 107 140* HCO3 ART (CALC) mmol/L 30 29 26 O2 SAT ART (NANI) % 99* 99* 100* BASE EXC ART mmol/L 4 4 2 NEURO IMAGING (Most recent) HCT (06/15/2021): No significant interval change. Evolving small volume intraventricular hemorrhage. The known subarachnoid hemorrhage is not well appreciated, and may be due to portable technique PHYSICAL EXAM: HEENT: Mucous membranes dry, poor dentition. Sclera anicteric. Cardiac: Irregularly irregular. A-fib. No M/R/G. Pulmonary: Even, unlabored respirations. Symmetric chest rise and fall. Coarse throughout, no wheezing. Abdomen: Rounded but non-distended in appearance, bowel sounds present, soft/non-tender to palpation. Skin: Warm and dry. NEURO EXAM Mental Status Intubated, not sedated. Eyes open to tactile stim (waxes and wanes, sometimes eyes open spontaneously), regards, follows simple commands, disoriented (nods yes to everything asked) Cranial Nerves Surgical/irregular pupils. Gaze midline. + OCR. ETT broderick in place. Strong cough with suctioning via ETT. Motor Moves all extremities spontaneously NEUROLOGICAL Meds: ??? Folic acid 1 mg daily ? ? Keppra 500 mg BID --> self dc by tonight ??? MVI 15 ml daily ? ? thiamine taper, currently on 250 mg IV daily --> 100 mg daily starting tomorrow ??? Tylenol 650 mg q4h PRN # Traumatic brain injury w/tSAH/IVH in setting of fall and AC -- continue Keppra x7 days, seizure precautions -- PT, OT, [employer] consults # Encephalopathy, improving - suspect multifactorial with alcohol withdrawal (OSH given librium), TBI, hospital admission/delirium, possible Wernicke's -- Encephalopathy labs thus far unrevealing: TSH 0.8, Folate > 20, B12 742, B1 in process, RPR non-reactive, HIV non-reactive, hepatitis panel non-reactive, ammonia < 20 -- empiric MVI, folate, and high-dose thiamine for possible Wernicke's encephalopathy -- cEEG (06/12-06/13) negative for seizures -- EEG 06/15 mod generalized slowing -- ncq4h + SH, delirium precautions CARDIOVASCULAR and HEME Meds: ? ? Amiodarone 400 mg TID --> 200 mg daily starting tomorrow ??? Lasix 20 mg daily ??? Metoprolol 25 mg q6h ??? Pravastatin 40 mg daily TTE (06/13): LA is mildly dilated. Normal RV cavity size and function. LV cavity size is normal. Concentric LV remodeling with normal EF=70-75%. Normal Inferior vena cava. Dilated JOSE RAFAEL=4.7 cm and ascending aorta=3.9 cm. # Atrial fibrillation with RVR -- s/p amio gtt 06/13-06/14; continue amiodarone; f/u with outpatient pharmacovigilance specialist -- metoprolol 25 mg q6h (home dose metoprolol 100 mg BID) -- monitor on tele; goal HR<120 -- ensure K+ and Mg adequately repleted -- acute SAH/IVH currently precludes therapeutic anticoagulation (previously on Eliquis) # Chronic systolic HF -- per cardiology note 01/25/21: Asymptomatic mild LV dysfunction, suspect tachycardia mediated -- previously EF 45-50% (2020), now as of 06/13 EF 70-75% -- continue home Lasix -- continue metoprolol as above -- hold lisinopril # Possible syncope -- + orthostatic symptoms as outpatient per and + orthostatics at OSH -- TTE unrevealing, monitor on telemetry # History of DVT 2019 -- holding home Eliquis most recently reportedly for a-fib, last dose 06/08 -- LED (06/14) negative for DVT # HTN -- holding home lisinopril 40 mg daily -- SBP <160 # HLD -- continue home pravastatin # Thrombocytopenia, mild -- possibly nutritional or secondary to long-standing alcohol use -- HIV and hepatitis panel non-reactive, folate 742, copper 0.99 -- CBC daily # Macrocytic anemia -- folate/B12 wnl, likely 2/2 long-standing alcohol use -- CBC daily -- hgb goal >7 PULMONARY Resp Min: 13 Max: 27 SpO2 Min: 97 % Max: 100 % End Tidal CO2: 23-37 Adult Vent Mode: Pressure support Ventilation FiO2 (%): [40 %] 40 % PEEP/CPAP/EPAP (cm H2O): [5 cm H20-7 cm H20] 5 cm H20 Pressure Support (cm H2O): [10 cm H20] 10 cm H20 MAP (cmH2O): [7.3-12] 8.8 CXR (06/17): - Comparison is made to the prior exam from 06/16/2021. An endotracheal tube is approximately 3 centimeters above the jhonny. A nasogastric tube extends below the hemidiaphragm. Esophageal temperature probe is seen terminating in the proximal esophagus. - Streaky right basilar opacities are seen likely representing aspiration. Mild pulmonary edema is noted, increased. Mild left basilar atelectasis is seen, increased. The costophrenic angles are excluded. There is no pneumothorax. The cardiomediastinal silhouette is stable. Meds: ??? Peridex BID # Acute hypoxic respiratory failure # hx COPD -- intubated 06/15 -- wean to PSV 10//40%, extubate today -- SPO2 goal 88-92%, will place on face tent for secretions RENAL Meds: ??? Terazosin 20 mg daily # BPH -- continue home Terazosin (some documentation indicates this is also taken for HTN) -- continue coombs (placed by Urology); likely remove coombs 06/16 after pm dose # Hypernatremia # Hyperchloremia -- FWF 100 mL q4h --> 150 mL q4h -- BMP daily GI and ENDO Meds: ??? Colace 100 mg BID ??? Protonix 40 mg daily ??? senna 8.8 mg BID Diet: Diet, Tube Feeding No Tray Jevity 1.5 veronica (NGT); 60; 100; Water; Every 4 hours IV fluids: SL IVF Flushes: FWF 100 mL q4h Last BM: 06/18 x2 Glucose: 152 am BMP # Nutrition/Dysphagia -- continue TF as above -- continue current bowel regimen # GERD -- continue PPI INFECTION RELEVANT/MOST RECENT MICRO LAB DATA: ?? Blood cultures (06/14) NGTD ?? Respiratory culture (06/16): Moderate mixed bacterial clifton seen on Gram stain ?? COVID-19 RNA (06/12) negative ?? UA (06/12) negative ?? Hepatitis panel (06/12): NG ?? Scrotal abscess cultures (06/17): Abundant Gram Positive Cocci , Moderate Gram Negative Bacilli Meds: ??? Ceftriaxone 2000 mg daily (06/17- 06/18) ??? Clindamycin 600 mg q8h (06/18 - ) # Cellulitis # Scrotal abscess # Left hydrocele -- US scrotum 06/17 demonstrated left hydrocele and cellulitis -- CT pelvis w contrast 06/17 positive for small left scrotal hydrocele, negative for soft tissue gas, and positive for non-displaced trochanteric fracture -- f/u cultures, change ceftriaxone 2000 mg daily to clindamycin 600 mg q8h for MRSA coverage -- urology consulted: continue antibiotics x 10 days MUSCULOSKELETAL # Left non-displaced trochanteric fracture -- ortho consulted -- will obtain left femur XR 2 views, left hip 2 views with pelvis ACCESS Lines ?? PIV x2 ?? NG tube ?? ETT Coombs ? ? 06/13 Coude (placed by urology but not considered difficult) --> dc tonight and place EUD VTE Prophylaxis Last Venous Doppler: 06/14/2021 negative Prophylaxis: SCDs, SQH 5,000 units q8h CODE STATUS: Full Code Disposition: 9400 NNICU Cosigned by Elver Rodriguez MD PhD at 06/22/2021 2:10 PM CDT * Clarence Soto MD PhD - 06/18/2021 6:33 AM CDT Neurosurgery Daily Progress Note 06/18/2021 Hospital Course 06/11 Admitted. HCT with stable ventricular size, small IVH in occipital horns. 06/12: TTSDU, then TTICU for persistently depressed mental status. Repeat head CT stable. Metop for Afib w RVR. Started on high dose thiamine. EEG negative, planning for continuous. 06/13 placed on amio gtt for afib w/ RVR; cEEG d/c'd; TTE wnl 06/14 brain MRI w stable small SAH/IVH, no other infarct/lesion. Hypoxemia and desaturation, intubated overnight, HCT stable. 06/15 cEEG w/ mod gen slowing 06/16 joel 06/17 joel Objective Physical Exam: Intubated, not sedated EO spont, regard, follows commands Oriented x1 to choice PERRL, gaze conjugate, face taped Spont and symmetric extremity movement at least antigravity Vitals: 24hr min/max vitals: Temp Min: 36.6 ??C (97.88 ??F) Max: 37.5 ??C (99.5 ??F) Pulse Min: 83 Max: 117 Resp Min: 13 Max: 27 SpO2 Min: 97 % Max: 100 % MAP (mmHg) Min: 74 Max: 128 Intake and output: I/O last 2 completed shifts: In: 0 [I.V.:30; NG/GT:2089; IV Piggyback:100] Out: 1255 [Urine:1255] Medications: Scheduled Scheduled Medications Medication Dose Route Frequency ??? amiodarone (PACERONE) tablet 400 mg 400 mg feeding tube TID Followed by ??? [START ON 06/19/2021] amiodarone (PACERONE) tablet 200 mg 200 mg feeding tube Daily ??? cefTRIAXone (ROCEPHIN) 2,000 mg/20 mL in sterile water (premix) 2,000 mg 2,000 mg intravenous Q24H MONET ??? chlorhexidine (PERIDEX) 0.12 % solution 15 mL 15 mL mouth/throat BID ??? docusate (COLACE) 10 mg/mL oral liquid 100 mg 100 mg feeding tube BID ??? folic acid (FOLVITE) tablet 1 mg 1 mg feeding tube Daily ??? furosemide (LASIX) tablet 20 mg 20 mg feeding tube Daily ??? heparin 5,000 unit/mL injection 5,000 Units 5,000 Units subcutaneous Q8H MONET ??? levETIRAcetam (KEPPRA) tablet 500 mg 500 mg feeding tube BID ??? metoprolol tartrate (LOPRESSOR) immediate release tablet 25 mg 25 mg feeding tube Q6H ??? kmkccrtt-iyj-oibllmi gluconate (CENTRUM) 0.6 mg iron/mL oral liquid 15 mL 15 mL feeding tube Daily ??? pantoprazole (PROTONIX) 4 mg/mL injection 40 mg 40 mg intravenous Q24H MONET ??? pravastatin (PRAVACHOL) tablet 40 mg 40 mg feeding tube Daily ??? senna 1.76 mg/mL syrup 8.8 mg 8.8 mg feeding tube BID ??? sodium chloride 0.9% flush 0.5-20 mL 0.5-20 mL intra-catheter Q8H MONET ??? sodium chloride 0.9% flush 0.5-20 mL 0.5-20 mL intra-catheter Q8H MONET ??? terazosin (HYTRIN) capsule 20 mg 20 mg feeding tube Nightly ??? thiamine (VITAMIN B-1) 250 mg in sodium chloride 0.9% 100 mL IVPB 250 mg intravenous Q24H MONET Followed by ??? [START ON 06/19/2021] thiamine (VITAMIN B1) tablet 100 mg 100 mg feeding tube Daily As needed PRN Medications Medication Dose Route Frequency Last Admin ??? acetaminophen (TYLENOL) tablet 650 mg 650 mg feeding tube Q4H PRN 650 mg at 06/18/21 0035 ??? artificial saliva (MOUTH KOTE) spray 2 application 2 application mouth/throat Q4H PRN 2 application at 06/14/212103 ??? bisacodyL (DULCOLAX) suppository 10 mg 10 mg rectal Daily PRN ??? levalbuterol (XOPENEX) 1.25 mg/3 mL nebulizer solution 1.25 mg 1.25 mg nebulization Q6H PRN (RT) 1.25 mg at 06/14/21 0914 ??? ondansetron (ZOFRAN) injection 4 mg 4 mg intravenous Q6H PRN ??? polyvinyl alcohol-povidone (REFRESH CLASSIC) 1.4-0.6 % ophthalmic solution 2 drop 2 drop each eye QID PRN 2 drop at 06/13/21 0821 ??? sodium chloride 0.9% flush 0.5-20 mL 0.5-20 mL intra-catheter PRN ??? sodium chloride 0.9% flush 0.5-20 mL 0.5-20 mL intra-catheter PRN Labs: Lab Results Component Value Date SODIUM 147 (H) 06/17/2021 SODIUM 144 06/17/2021 SODIUM 149 (H) 06/16/2021 Lab Results Component Value Date GLUCOSE 152 06/17/2021 CALCIUM 8.8 06/17/2021 POTASSIUM 4.3 06/17/2021 CO2 31 06/17/2021 CHLORIDE 110 06/17/2021 BUNSER 17 06/17/2021 CREATININE 0.80 06/17/2021 Lab Results Component Value Date WBC 6.6 06/17/2021 WBC 5.3 06/16/2021 WBC 7.6 06/15/2021 HGB 10.7 (L) 06/17/2021 HGB 8.9 (L) 06/16/2021 HGB 12.1 (L) 06/15/2021 HCT 33.0 (L) 06/17/2021 HCT 27.5 (L) 06/16/2021 HCT 34.0 (L) 06/15/2021 LABPLAT 151 06/17/2021 LABPLAT 101 (L) 06/16/2021 LABPLAT 126 (L) 06/15/2021 Lab Results Component Value Date INR 1.1 06/11/2021 INR 1.1 07/13/2020 INR 1.6 (H) 02/21/2020 PT 12.5 06/11/2021 PT 12.3 07/13/2020 PT 17.9 (H) 02/21/2020 APTT 31 06/11/2021 APTT 80 (H) 02/20/2020 APTT 26 02/20/2020 No components found for: TROPONIN PT/OT assessment: PT Recommendation/Plan: [facility] OT Recommendation: Inpatient Rehab Facility Assessment/Plan Hospital Day: 8 Jania Redman is a 71 y.o. year old male who presented with tSAH and small IVH after MGLF. Plan Keppra 500 BID x7 days Respiratory care CIWA protocol, etoh withdrawal watch ongoing afib watch - rate controlled, chronic bMRI without structural cause of AMS No neurosurgical issues currently, may be more appropriate for medicine service post ICU needs DVT prophylaxis: ok for medical ppx Responsible team (call resident in bold with questions) Vascular Note created by Clarence Soto MD PhD on 06/18/2021 at 6:33 AM. Cosigned by Alejandro Bravo MD at 06/18/2021 7:02 PM CDT * Elver Rodriguez MD PhD - 06/17/2021 3:05 PM CST Critical Care Attending Note I have seen and examined this patient on the day of service. I have reviewed and confirmed the history, physical exam, laboratory and radiographic data with the house staff, bedside nursing, and nurse practitioners. I have reviewed and discussed my treatment plan with the ICU team and other medical/practice consultant staff as documented. Patient Briefly, this is a 71 year old man with a history of HTN, atrial fibrillation (on eliquis, HFrEF, and COPD who presents to the ICU in the setting of a TBI with SAH and IVH and persistent encephalopathy with respiratory insufficiency. Events Mental status exam improved substantially. Purulent drainage noted from scrotum. Exam Opens eyes to moderate stimulation. Does not regard or follow. Strength symmetric. Plan Summary #Traumatic SAH/IVH. Continue keppra. Continue close neurologic monitoring #Encephalopathy: Improving substantially. Likely related to TBI/delerium. # Acute respiratory failure: Pressure support mode ventilation as tolerated. Continues to have a high secretion burden. If mental status remains improved- may attempt extubation trial tomorrow. #A fib with RVR: Continue amiodarone/metoprolol #Scrotal swelling/drainage: Culture drainage, scrotal ultrasound, urology consult. Critical Care Time: I have spent 33 minutes in full attendance with this critically ill patient making frequent reassessments and decisions regarding this patient's complex medical care. Critical care time was exclusive of separately billable procedures, treating other patients and teaching time. Critical care was necessary to treat or prevent imminent or life-threatening deterioration due to acute respiratory failure and required the interventions as described above including ventilator management. N MARKETING ANALYST * Patricia Ferrer NP - 06/17/2021 6:59 AM CST Neuro Critical Care Progress Note Dx: Encephalopathy 71M HTN/HL, a-fib on Eliquis, HFrEF (45-50% EF 2020), COPD not on home O2, legally blind, and hearing loss admitted with trace tSAH and IVH following a fall. Admitted OSH with altered LOC. Initial CTneg but subsequent MRI with tr SAH/IVH. Tx to [facility] service 06/11 where has remained encephalopathic. Medicine consulted for encephalopathy and felt airway was threatened, hence transfer to ICU 06/12. Interval Events: -- Metoprolol increased to 25 mg q6 and and HR range now 90 - 113 -- Na 149 from 147. Started FWF 100 q4 Vitals Temp Min: 37 ??C (98.6 ??F) Max: 38.2 ??C (100.76 ??F) Pulse Min: 77 Max: 132 NIBP BP Min: 91/64 Max: 150/97 MAP (mmHg) Av.6 Min: 72 Max: 112 A-line No data recorded I/O: Intake/Output Summary (Last 24 hours) at 06/17/2021 0659 Last data filed at 06/17/2021 0600 Gross per 24 hour Intake 2009 ml Output 975 ml Net 1035 ml UOP in past 24 hours: 975 mL LABS Recent Labs Lab Units 06/16/21 2135 06/16/21 0902 06/15/212056 SODIUM mmol/L 149* 147* 145 POTASSIUM PLASMA mmol/L 3.0* 4.1 5.3* CHLORIDE mmol/L 118* 111* 111* CO2 mmol/L 26 32 28 ANIONGAP mmol/L 5 4 6 GLUCOSE mg/dL 149 160 174 BUN SERUM mg/dL 15 17 17 CREATININE mg/dL 0.69* 0.87 0.88 CALCIUM mg/dL 6.9* 9.0 8.9 MAGNESIUM mg/dL 1.6 2.1 2.1 PHOSPHORUS PLASMA mg/dL 2.5 3.4 3.7 Recent Labs Lab Units 06/16/21 2135 06/15/21 2234 06/14/21 2138 06/12/21 1144 06/11/212028 WBC K/cumm 5.3 7.6 7.9 < > 7.1 HEMATOCRIT % 27.5* 34.0* 36.0* < > 42.7 HEMOGLOBIN g/dL 8.9* 12.1* 12.6* < > 14.9 PLATELETS K/cumm 101* 126* 133* < > 137* APTT sec -- -- -- -- 31 INR -- -- -- -- 1.1 < > = values in this interval not displayed. Recent Labs Lab Units 06/12/21 1331 06/12/21 1144 ALK PHOS Units/L 86 See Comment BILIRUBIN TOTAL mg/dL 0.7 See Comment TOTAL PROTEIN g/dL 5.5* See Comment ALBUMIN g/dL 3.0* See Comment ALT Units/L 11 See Comment AST Units/L 25 See Comment Recent Labs Lab Units 06/16/214 06/15/21 0422 06/15/21 0112 PH ART 7.46* 7.45 7.36 PCO2 ART mmHg 40 37 46* PO2 ART mmHg 107 140* 167* HCO3 ART (CALC) mmol/L 29 26 27 O2 SAT ART (NANI) % 99* 100* 99* BASE EXC ART mmol/L 4 2 0 NEURO IMAGING (Most recent) HCT (06/15/2021): No significant interval change. Evolving small volume intraventricular hemorrhage. The known subarachnoid hemorrhage is not well appreciated, and may be due to portable technique PHYSICAL EXAM: HEENT: Mucous membranes dry, poor dentition. Sclera anicteric. Cardiac: Irregularly irregular. A-fib. No M/R/G. Pulmonary: Even, unlabored respirations. Symmetric chest rise and fall. Coarse throughout, no wheezing. Abdomen: Rounded but non-distended in appearance, bowel sounds present, soft/non-tender to palpation. Skin: Warm and dry. NEURO EXAM Mental Status Intubated, not sedated. Eyes open spontaneously, regards, follows commands, disoriented (nods yes to everything asked) Cranial Nerves Surgical/irregular pupils. Gaze midline. + OCR. ETT broderick in place. Strong cough with suctioning via ETT. Motor Moves all extremities spontaneously NEUROLOGICAL Meds: ??? Folic acid 1 mg daily ??? Keppra 500 mg BID ??? MVI 15 ml daily ??? thiamine taper, currently on 250 mg IV daily ??? Tylenol 650 mg q4h PRN # Traumatic brain injury w/tSAH/IVH in setting of fall and AC -- continue Keppra x7 days, seizure precautions -- PT, OT, [employer] consults # Encephalopathy - suspect multifactorial with alcohol withdrawal (OSH given librium), TBI, hospital admission/delirium, possible Wernicke's -- Encephalopathy labs thus far unrevealing: TSH 0.8, Folate > 20, B12 742, B1 in process, RPR non-reactive, HIV non-reactive, hepatitis panel non-reactive, ammonia < 20 -- empiric MVI, folate, and high-dose thiamine for possible Wernicke's encephalopathy -- cEEG (06/12-06/13) negative for seizures -- EEG 06/15 mod generalized slowing -- ncq4h + SH, delirium precautions CARDIOVASCULAR and HEME Meds: ??? Amiodarone 400 mg TID ??? Lasix 20 mg daily ??? Metoprolol 25 mg q6h ??? Pravastatin 40 mg daily TTE (06/13): LA is mildly dilated. Normal RV cavity size and function. LV cavity size is normal. Concentric LV remodeling with normal EF=70-75%. Normal Inferior vena cava. Dilated JOSE RAFAEL=4.7 cm and ascending aorta=3.9 cm. # Atrial fibrillation with RVR -- s/p amio gtt 06/13-06/14; continue amiodarone enteral load; f/u with outpatient pharmacovigilance specialist -- metoprolol 25 mg q6h (home dose metoprolol 100 mg BID) -- monitor on tele; goal HR<120 -- ensure K+ and Mg adequately repleted -- acute SAH/IVH currently precludes therapeutic anticoagulation (previously on Eliquis) # Chronic systolic HF -- per cardiology note 01/25/21: Asymptomatic mild LV dysfunction, suspect tachycardia mediated -- previously EF 45-50% (2020), now as of 06/13 EF 70-75% -- continue home Lasix -- continue metoprolol as above -- hold lisinopril -- goal euvolemia # Possible syncope -- + orthostatic symptoms as outpatient per and + orthostatics at OSH -- TTE unrevealing, monitor on telemetry # History of DVT 2019 -- on Eliquis most recently reportedly for a-fib, last dose 06/08 -- LED (06/14) negative for DVT # HTN -- holding home lisinopril 40 mg daily -- SBP <160 # HLD -- continue home pravastatin # Thrombocytopenia, mild -- possibly nutritional or secondary to long-standing alcohol use -- HIV and hepatitis panel non-reactive, folate 742, copper 0.99 -- CBC daily # Macrocytic anemia -- folate/B12 wnl, likely 2/2 long-standing alcohol use -- CBC daily -- hgb goal >7 PULMONARY Resp Min: 17 Max: 27 SpO2 Min: 90 % Max: 100 % End Tidal CO2: 27-39 Adult Vent Mode: Pressure support Ventilation FiO2 (%): [40 %] 40 % PEEP/CPAP/EPAP (cm H2O): [7.5 cm H20] 7.5 cm H20 Pressure Support (cm H2O): [10 cm H20] 10 cm H20 MAP (cmH2O): [11-12] 11 CXR (06/16): Endotracheal tube tip is 3 cm above the jhonny. Gastric tube is in place, tip below the diaphragm. The lungs are slightly hyperinflated, suggestive of underlying pulmonary emphysema. Proximal pulmonary arteries remain mildly enlarged. There is some minimal bibasilar subsegmental atelectasis. This is improved in comparison to the previous examination. There isno pleural effusion or pneumothorax. Mild cardiomegaly with atherosclerotic aorta is stable. Meds: ??? Peridex BID # Acute hypoxic respiratory failure # hx COPD -- intubated 06/15 -- wean to PSV 10/5/40%, SPO2 goal 88-92% -- consider extubating tomorrow -- Peridex BID -- CXR and ABG daily while intubated RENAL Meds: ??? Terazosin 20 mg daily # BPH -- continue home Terazosin (some documentation indicates this is also taken for HTN) -- continue coombs (placed by Urology); likely remove coombs 06/16 after pm dose # Hypernatremia # Hyperchloremia -- FWF 100 mL q4h -- BMP daily GI and ENDO Meds: ??? Colace 100 mg BID ??? Protonix 40 mg daily ??? senna 8.8 mg BID Diet: Diet, Tube Feeding No Tray Jevity 1.5 veronica (NGT); 60; 100; Water; Every 4 hours IV fluids: SL IVF Flushes: FWF 100 mL q4h Last BM: 06/14 x2 Glucose: 149 am BMP # Nutrition/Dysphagia -- continue TF as above -- continue current bowel regimen # GERD -- continue PPI INFECTION RELEVANT/MOST RECENT MICRO LAB DATA: Blood cultures (06/14) NGTD Respiratory culture (06/16): Moderate mixed bacterial clifton seen on Gram stain COVID-19 RNA (06/12) negative UA (06/12) negative Hepatitis panel (06/12): NG Meds: ??? N/A # Scrotal abscess -- obtain scrotal US -- obtain cultures of scrotal abscess -- consider consulting urology once US is done ACCESS Lines ?? PIV x2 ?? NG tube ?? ETT Coombs ??? 06/13 Coude (placed by urology but not considered difficult) VTE Prophylaxis Last Venous Doppler: 06/14/2021 negative Prophylaxis: SCDs, SQH 5,000 units q8h CODE STATUS: Full Code Disposition: 9400 NNICU Cosigned by Elver Rodriguez MD PhD at 06/22/2021 2:10 PM CDT N MARKETING ANALYST * Clarence Soto MD PhD - 06/17/2021 6:49 AM CST Neurosurgery Daily Progress Note 06/17/2021 Hospital Course 6 Admitted. HCT with stable ventricular size, small IVH in occipital horns. 06/12: TTSDU, then TTICU for persistently depressed mental status. Repeat head CT stable. Metop for Afib w RVR. Started on high dose thiamine. EEG negative, planning for continuous. 06/13 placed on amio gtt for afib w/ RVR; cEEG d/c'd; TTE wnl 06/14 brain MRI w stable small SAH/IVH, no other infarct/lesion. Hypoxemia and desaturation, intubated overnight, HCT stable. 06/15 cEEG w/ mod gen slowing 06/16 joel Objective Physical Exam: Intubated, not sedated EO spont, regard, follows commands Oriented x1 to choice PERRL, gaze conjugate, face taped Spont and symmetric extremity movement at least antigravity Vitals: 24hr min/max vitals: Temp Min: 37 ??C (98.6 ??F) Max: 38.2 ??C (100.76 ??F) Pulse Min: 77 Max: 132 Resp Min: 17 Max: 27 SpO2 Min: 90 % Max: 100 % MAP (mmHg) Min: 72 Max: 112 Intake and output: I/O last 2 completed shifts: In: 1545 [NG/GT:1545] Out: 735 [Urine:735] Medications: Scheduled Scheduled Medications Medication Dose Route Frequency ??? amiodarone (PACERONE) tablet 400 mg 400 mg feeding tube TID Followed by ??? [START ON 06/19/2021] amiodarone (PACERONE) tablet 200 mg 200 mg feeding tube Daily ??? chlorhexidine (PERIDEX) 0.12 % solution 15 mL 15 mL mouth/throat BID ??? docusate (COLACE) 10 mg/mL oral liquid 100 mg 100 mg feeding tube BID ??? folic acid (FOLVITE) tablet 1 mg 1 mg feeding tube Daily ??? furosemide (LASIX) tablet 20 mg 20 mg feeding tube Daily ??? heparin 5,000 unit/mL injection 5,000 Units 5,000 Units subcutaneous Q8H MONET ??? levETIRAcetam (KEPPRA) tablet 500 mg 500 mg feeding tube BID ??? metoprolol tartrate (LOPRESSOR) immediate release tablet 25 mg 25 mg feeding tube Q6H ??? metoprolol tartrate immediate release capsule 12.5 mg 12.5 mg oral Once ??? qtyijysy-rsz-mojpbeq gluconate (CENTRUM) 0.6 mg iron/mL oral liquid 15 mL 15 mL feeding tube Daily ??? pantoprazole (PROTONIX) 4 mg/mL injection 40 mg 40 mg intravenous Q24H MONET ??? pravastatin (PRAVACHOL) tablet 40 mg 40 mg feeding tube Daily ??? senna 1.76 mg/mL syrup 8.8 mg 8.8 mg feeding tube BID ??? sodium chloride 0.9% flush 0.5-20 mL 0.5-20 mL intra-catheter Q8H MONET ??? sodium chloride 0.9% flush 0.5-20 mL 0.5-20 mL intra-catheter Q8H MONET ??? terazosin (HYTRIN) capsule 20 mg 20 mg feeding tube Nightly ??? thiamine (VITAMIN B-1) 250 mg in sodium chloride 0.9% 100 mL IVPB 250 mg intravenous Q24H MONET Followed by ??? [START ON 06/19/2021] thiamine (VITAMIN B1) tablet 100 mg 100 mg feeding tube Daily As needed PRN Medications Medication Dose Route Frequency Last Admin ??? acetaminophen (TYLENOL) tablet 650 mg 650 mg feeding tube Q4H PRN 650 mg at 06/14/212046 ??? artificial saliva (MOUTH KOTE) spray 2 application 2 application mouth/throat Q4H PRN 2 application at 06/14/212103 ??? bisacodyL (DULCOLAX) suppository 10 mg 10 mg rectal Daily PRN ??? levalbuterol (XOPENEX) 1.25 mg/3 mL nebulizer solution 1.25 mg 1.25 mg nebulization Q6H PRN (RT) 1.25 mg at 06/14/21 0914 ??? ondansetron (ZOFRAN) injection 4 mg 4 mg intravenous Q6H PRN ??? polyvinyl alcohol-povidone (REFRESH CLASSIC) 1.4-0.6 % ophthalmic solution 2 drop 2 drop each eye QID PRN 2 drop at 06/13/21 0821 ??? sodium chloride 0.9% flush 0.5-20 mL 0.5-20 mL intra-catheter PRN ??? sodium chloride 0.9% flush 0.5-20 mL 0.5-20 mL intra-catheter PRN Labs: Lab Results Component Value Date SODIUM 149 (H) 06/16/2021 SODIUM 147 (H) 06/16/2021 SODIUM 145 06/15/2021 Lab Results Component Value Date GLUCOSE 149 06/16/2021 CALCIUM 6.9 (L) 06/16/2021 POTASSIUM 3.0 (L) 06/16/2021 CO2 26 06/16/2021 CHLORIDE 118 (H) 06/16/2021 BUNSER 15 06/16/2021 CREATININE 0.69 (L) 06/16/2021 Lab Results Component Value Date WBC 5.3 06/16/2021 WBC 7.6 06/15/2021 WBC 7.9 06/14/2021 HGB 8.9 (L) 06/16/2021 HGB 12.1 (L) 06/15/2021 HGB 12.6 (L) 06/14/2021 HCT 27.5 (L) 06/16/2021 HCT 34.0 (L) 06/15/2021 HCT 36.0 (L) 06/14/2021 LABPLAT 101 (L) 06/16/2021 LABPLAT 126 (L) 06/15/2021 LABPLAT 133 (L) 06/14/2021 Lab Results Component Value Date INR 1.1 06/11/2021 INR 1.1 07/13/2020 INR 1.6 (H) 02/21/2020 PT 12.5 06/11/2021 PT 12.3 07/13/2020 PT 17.9 (H) 02/21/2020 APTT 31 06/11/2021 APTT 80 (H) 02/20/2020 APTT 26 02/20/2020 No components found for: TROPONIN PT/OT assessment: PT Recommendation/Plan: Half-Way Facility OT Recommendation: Inpatient Rehab Facility Assessment/Plan Hospital Day: 7 Jania Redman is a 71 y.o. year old male who presented with tSAH and small IVH after MGLF. Plan Keppra 500 BID x7 days Respiratory care CIWA protocol afib watch - rate controlled bMRI without structural cause of AMS, head ct overnight stable No neurosurgical issues currently, may be more appropriate for medicine service post ICU needs DVT prophylaxis: ok for medical ppx Responsible team (call resident in bold with questions) Vascular Note created by Clarence Soto MD PhD on 06/17/2021 at 6:50 AM. Cosigned by Seth Kiser MD at 06/19/2021 10:01 PM CDT N MARKETING ANALYST * Elver Rodriguez MD PhD - 06/16/2021 4:57 PM CST Critical Care Attending Note I have seen and examined this patient on the day of service. I have reviewed and confirmed the history, physical exam, laboratory and radiographic data with the house staff, bedside nursing, and nurse practitioners. I have reviewed and discussed my treatment plan with the ICU team and other medical/practice consultant staff as documented. Patient Briefly, this is a 71 year old man with a history of HTN, atrial fibrillation (on eliquis, HFrEF, and COPD who presents to the ICU in the setting of a TBI with SAH and IVH and persistent encephalopathy with respiratory insufficiency. Events Short run of NSVT Exam Opens eyes to moderate stimulation. Does not regard or follow. Strength symmetric. Plan Summary #Traumatic SAH/IVH. Continue keppra. Continue close neurologic monitoring #Encephalopathy: Suspect related to moderate TBI with worsening delerium. EEG negative. Metabolic workup unremarkable. Continue to minimize sedating medications. Supportive care. Seems somewhat improved today. # Acute respiratory failure: Pressure support mode ventilation as tolerated. #A fib with RVR: Continue amiodarone- metoprolol increased to 25mg QID. Critical Care Time: I have spent 31 minutes in full attendance with this critically ill patient making frequent reassessments and decisions regarding this patient's complex medical care. Critical care time was exclusive of separately billable procedures, treating other patients and teaching time. Critical care was necessary to treat or prevent imminent or life-threatening deterioration due to acute respiratory failure and required the interventions as described above including ventilator management. N MARKETING ANALYST * Jazzy Clarke LCSW - 06/16/2021 3:06 PM CST IP Social Work Assessment Patient was admitted on 06/11/21 for Encephalopathy. Information was obtained from patient's Raine because patient is confused. He is also blind and has hearing impairment. Social History: Patient and Raine live together in [place], [place]. Raine said that she and their daughter Latha are the only support that patient has. Additional Information: Raine said that patient has been in detention facilities many times in the past and that none of them provide rehab. Impressions: Patient was lying in bed at the time of the assessment. Patient was oriented x1. Patient will likely benefit from detention facility placement at discharge. It is possible that patient may need meterman care in a nursing facility. Based on a comprehensive family assessment, assistance with instrumental activities of daily livingafter discharge will be provided by facility. Through the course of our work I determined that Raine said that she possesses the skill and ability to provide and monitor the care of the patient when he or she returns home. Raine said that she has the capacity to provide/monitor/arrange for the care of the patient. Finally, we determined that Raine said that she has the knowledge of available resources and that combining them with their existing resources will suffice to sustain and care for the patient when he or she returns home. The treatment team is aware of this information. All are in agreement with the aftercare plan. Problem: Discharge planning Goal: To insure a safe discharge plan Social Work Plan: SW spoke with Raine about short term and meterman discharge plans. Raine agrees with plan for detention facility short term and said that if patient is unable to care for himself when he no longer meets detention facility criteria he will need meterman care in nursing facility because she is unable to physically care for him. SW will send referrals when patient is more stable. Insurance Information: Anthem Medicare Directives: Advance Directives (For Healthcare) Have you reviewed your Advance Directive and is it valid for this stay?: Not applicable Advance Directive: Patient does not have advance directive, Not applicable (Patient is confused) Information Provided on Healthcare Directives: No Pre-existing DNR/DNI Order: No Patient Requests Assistance: No (06/16/21 6628) Assessment: Information Information Obtained From: Spouse Name: Raine Sale Referral Data Referral Source: Self referral Referral Reason: Discharge Planning Prior to Admission Primary Caregiver: Self Support System: Spouse/Significant Other, Children Support system contact info (name, phone, availablity): Raine Redman, ([phone])--available for 24 hour supervision but not total group home Care Services: No Durable Medical Equipment: Walker (wheeled) Living Arrangements: Spouse/significant other Type of Residence: Private residence Steps in home? : Yes, Outside of home, Yes, Inside home Number of steps inside:: 14 steps Number of steps outside:: 2 steps Financial Resource Income: SSD/SSI Payor Source: Medicare advantage Potential Discharge Needs Anticipated discharge level of care: half-way facility Pt/Family agrees with Anticipated Level of Care: Yes Patient expects to be discharged to:: Other (Comment) (Patient is confused) Behavioral Health Services: No (06/16/21 8657) Communication: Communications Important Message from Medicare notice given to patient?: Not Applicable [place] letter given?: Not Applicable Patient choice (Home Health/Hospice) list given to patient/parts sales representative?: Not Applicable Half-Way Facility list given to patient/parts sales representative?: Yes Fiduciary Responsibility: Patient/Designated decision maker was informed of [facility] fiduciary relationship as necessary (06/16/21 2702) N MARKETING ANALYST N MARKETING ANALYST * Patricia Ferrer NP - 06/16/2021 7:16 AM CST Neuro Critical Care Progress Note Dx: Encephalopathy 71M HTN/HL, a-fib on Eliquis, HFrEF (45-50% EF 2020), COPD not on home O2, legally blind, and hearing loss admitted with trace tSAH and IVH following a fall. Admitted OSH with altered LOC. Initial CTneg but subsequent MRI with tr SAH/IVH. Tx to [facility] service 06/11 where has remained encephalopathic. Medicine consulted for encephalopathy and felt airway was threatened, hence transfer to ICU 06/12. Interval Events: -- EEG moderate generalized slowing --1900: 12 beats of v-tach Vitals Temp Min: 36.8 ??C (98.2 ??F) Max: 38 ??C (100.4 ??F) Pulse Min: 81 Max: 128 NIBP BP Min: 101/70 Max: 148/89 MAP (mmHg) Av.2 Min: 77 Max: 116 A-line No data recorded I/O: Intake/Output Summary (Last 24 hours) at 06/16/2021 0716 Last data filed at 06/16/2021 0500 Gross per 24 hour Intake 1555 ml Output 445 ml Net 1110 ml UOP in past 24 hours: 445 ml (1325 mL day prior) LABS Recent Labs Lab Units 06/16/21 0906/15/21205606/15/21 0800 SODIUM mmol/L 147* 145 147* POTASSIUM PLASMA mmol/L 4.1 5.3* 3.9 CHLORIDE mmol/L 111* 111* 112* CO2 mmol/L 32 28 30 ANIONGAP mmol/L 4 6 5 GLUCOSE mg/dL 160 174 158 BUN SERUM mg/dL 17 17 14 CREATININE mg/dL 0.87 0.88 0.97 CALCIUM mg/dL 9.0 8.9 8.5 MAGNESIUM mg/dL 2.1 2.1 1.9 PHOSPHORUS PLASMA mg/dL 3.4 3.7 3.1 Recent Labs Lab Units 06/15/214 06/14/21 2138 06/13/21204706/12/21 1144 06/11/212028 WBC K/cumm 7.6 7.9 6.4 < > 7.1 HEMATOCRIT % 34.0* 36.0* 34.9* < > 42.7 HEMOGLOBIN g/dL 12.1* 12.6* 12.2* < > 14.9 PLATELETS K/cumm 126* 133* 120* < > 137* APTT sec -- -- -- -- 31 INR -- -- -- -- 1.1 < > = values in this interval not displayed. *06/12 1144 CBC is in error Recent Labs Lab Units 06/12/21 1331 06/12/21 1144 ALK PHOS Units/L 86 See Comment BILIRUBIN TOTAL mg/dL 0.7 See Comment TOTAL PROTEIN g/dL 5.5* See Comment ALBUMIN g/dL 3.0* See Comment ALT Units/L 11 See Comment AST Units/L 25 See Comment Recent Labs Lab Units 06/15/21 0422 06/15/21 0112 06/12/21 1144 PH ART 7.45 7.36 7.47* PCO2 ART mmHg 37 46* 31* PO2 ART mmHg 140* 167* 105 HCO3 ART (CALC) mmol/L 26 27 23 O2 SAT ART (NANI) % 100* 99* 98* BASE EXC ART mmol/L 2 0 0 NEURO IMAGING (Most recent) HCT (06/15/2021): No significant interval change. Evolving small volume intraventricular hemorrhage. The known subarachnoid hemorrhage is not well appreciated, and may be due to portable technique PHYSICAL EXAM: HEENT: Mucous membranes dry, poor dentition. Sclera anicteric. Cardiac: Irregularly irregular. A-fib. No M/R/G. Pulmonary: Even, unlabored respirations. Symmetric chest rise and fall. Coarse throughout, no wheezing. Abdomen: Rounded but non-distended in appearance, bowel sounds present, soft/non-tender to palpation. Skin: Warm and dry. NEURO EXAM Mental Status Intubated, not sedated. Opens eyes to verbal stim, regards, does not follow commands, disoriented Cranial Nerves Surgical/irregular pupils. Gaze midline. + dolls. ETT broderick in place. Strong cough with suctioningvia ETT. Motor Moves all extremities spontaneously NEUROLOGICAL Meds: ??? Folic acid 1 mg daily ??? Keppra 500 mg BID ??? MVI 15 ml daily ??? thiamine taper, currently on 250 mg IV daily ??? Tylenol 650 mg q4h PRN # Traumatic brain injury w/tSAH/IVH in setting of fall and AC -- continue Keppra x7 days, seizure precautions -- PT, OT, [employer] consults # Encephalopathy - suspect multifactorial with alcohol withdrawal (OSH given librium), TBI, hospital admission/delirium, possible Wernicke's -- Encephalopathy labs thus far unrevealing: TSH 0.8, Folate > 20, B12 742, B1 in process, RPR non-reactive, HIV non-reactive, hepatitis panel non-reactive, ammonia < 20 -- empiric MVI, folate, and high-dose thiamine for possible Wernicke's encephalopathy -- cEEG (06/12-06/13) negative for seizures -- EEG 06/15 mod generalized slowing -- ncq4h + SH, delirium precautions CARDIOVASCULAR and HEME Meds: ??? Amiodarone 400 mg TID ??? Lasix 20 mg daily ??? Metoprolol 12.5 mg q6h ??? Pravastatin 40 mg daily TTE (06/13): LA is mildly dilated. Normal RV cavity size and function. LV cavity size is normal. Concentric LV remodeling with normal EF=70-75%. Normal Inferior vena cava. Dilated JOSE RAFAEL=4.7 cm and ascending aorta=3.9 cm. # Atrial fibrillation with RVR -- s/p amio gtt 06/13-06/14; continue amiodarone enteral load; f/u with outpatient pharmacovigilance specialist -- metoprolol 12.5 mg --> 25 mg q6h (home dose metoprolol 100 mg BID) -- monitor on tele; goal HR<120 -- ensure K+ and Mg adequately repleted -- acute SAH/IVH currently precludes therapeutic anticoagulation (previously on Eliquis) # Chronic systolic HF -- per cardiology note 01/25/21: Asymptomatic mild LV dysfunction, suspect tachycardia mediated -- previously EF 45-50% (2020), now as of 06/13 EF 70-75% -- continue home Lasix -- continue metoprolol as above -- hold lisinopril -- goal euvolemia # Possible syncope -- + orthostatic symptoms as outpatient per and + orthostatics at OSH -- TTE unrevealing, monitor on telemetry # History of DVT 2019 -- on Eliquis most recently reportedly for a-fib, last dose 06/08 -- LED (06/14) negative for DVT # HTN -- holding home lisinopril 40 mg daily -- SBP <160 # HLD -- continue home pravastatin # Thrombocytopenia, mild -- possibly nutritional or secondary to long-standing alcohol use -- HIV and hepatitis panel non-reactive, folate 742, copper 0.99 -- CBC daily # Macrocytic anemia -- folate/B12 wnl, likely 2/2 long-standing alcohol use -- CBC daily -- hgb goal >7 PULMONARY Resp Min: 15 Max: 30 SpO2 Min: 92 % Max: 100 % End Tidal CO2: 22-36 Adult Vent Mode: Pressure support Ventilation FiO2 (%): [40 %] 40 % S RR: [16] 16 S VT: [500 mL] 500 mL PEEP/CPAP/EPAP (cm H2O): [7.5 cm H20] 7.5 cm H20 Pressure Support (cm H2O): [10 cm H20] 10 cm H20 MAP (cmH2O): [11-13] 12 CXR (06/15): - Endotracheal tube terminates approximately 2 cm above the jhonny. Gastric tube courses below the diaphragm. - Small lung volumes with mild bibasilar atelectasis versus aspiration, mildly increased from same day prior. No pneumothorax or pleural effusion. Cardiomediastinal silhouette is unchanged. Secretions: thick, humphries, suctioning q4h Meds: ??? Peridex BID # Acute hypoxic respiratory failure # hx COPD -- intubated 06/15 -- wean to PSV 01/12.5/40%, SPO2 goal 88-92% -- Peridex BID -- CXR and ABG daily while intubated RENAL Meds: ??? Terazosin 20 mg daily # BPH -- continue home Terazosin (some documentation indicates this is also taken for HTN) -- continue coombs (placed by Urology); likely remove coombs 06/16 after pm dose # Hypernatremia # Hyperchloremia -- F/U am BMP -- consider FWF as needed GI and ENDO Meds: ??? Colace 100 mg BID ??? Protonix 40 mg daily ??? senna 8.8 mg BID Diet: Diet, Tube Feeding No Tray Jevity 1.5 veronica (NGT); 60 IV fluids: SL IVF Flushes: N/A Last BM: 06/14 x2 Glucose: 174 am BMP # Nutrition/Dysphagia -- continue TF as above -- continue current bowel regimen # GERD -- continue PPI INFECTION RELEVANT/MOST RECENT MICRO LAB DATA: Blood cultures (06/14) NGTD COVID-19 RNA (06/12) negative UA (06/12) negative Hepatitis panel (06/12): NG Meds: ??? N/A No active issues. Yusuf culture for temp >38.5 C per ICU protocol, CBC daily. ACCESS Lines ?? PIV x2 ?? NG tube ?? ETT Coombs ??? 06/13 Coude (placed by urology but not considered difficult) VTE Prophylaxis Last Venous Doppler: 06/14/2021 negative Prophylaxis: SCDs, SQH 5,000 units q8h CODE STATUS: Full Code Disposition: 9400 NNICU Cosigned by Elver Rodriguez MD PhD at 06/22/2021 2:09 PM CDT N MARKETING ANALYST * Clarence Soto MD PhD - 06/16/2021 6:40 AM CST Neurosurgery Daily Progress Note 06/16/2021 Hospital Course 06/11 Admitted. HCT with stable ventricular size, small IVH in occipital horns. 06/12: TTSDU, then TTICU for persistently depressed mental status. Repeat head CT stable. Metop for Afib w RVR. Started on high dose thiamine. EEG negative, planning for continuous. 06/13 placed on amio gtt for afib w/ RVR; cEEG d/c'd; TTE wnl 06/14 brain MRI w stable small SAH/IVH, no other infarct/lesion. Hypoxemia and desaturation, intubated overnight, HCT stable. 06/15 cEEG w/ mod gen slowing Objective Physical Exam: Intubated, not sedated EO stim, does not regard, follows commands Oriented x1 PERRL, gaze conjugate, face taped Spont and symmetric extremity movement at least antigravity Vitals: 24hr min/max vitals: Temp Min: 36.8 ??C (98.2 ??F) Max: 38 ??C (100.4 ??F) Pulse Min: 81 Max: 137 Resp Min: 15 Max: 30 SpO2 Min: 92 % Max: 100 % MAP (mmHg) Min: 77 Max: 120 Intake and output: I/O last 2 completed shifts: In: 1488 [I.V.:8; NG/GT:1480] Out: 530 [Urine:530] Medications: Scheduled Scheduled Medications Medication Dose Route Frequency ??? amiodarone (PACERONE) tablet 400 mg 400 mg feeding tube TID Followed by ??? [START ON 06/19/2021] amiodarone (PACERONE) tablet 200 mg 200 mg feeding tube Daily ??? chlorhexidine (PERIDEX) 0.12 % solution 15 mL 15 mL mouth/throat BID ??? docusate (COLACE) 10 mg/mL oral liquid 100 mg 100 mg feeding tube BID ??? folic acid (FOLVITE) tablet 1 mg 1 mg feeding tube Daily ??? furosemide (LASIX) tablet 20 mg 20 mg feeding tube Daily ??? heparin 5,000 unit/mL injection 5,000 Units 5,000 Units subcutaneous Q8H MONET ??? levETIRAcetam (KEPPRA) tablet 500 mg 500 mg feeding tube BID ??? metoprolol tartrate (LOPRESSOR) immediate release tablet 12.5 mg 12.5 mg feeding tube Q6H ??? tkzthmhb-uhq-weuqoyt gluconate (CENTRUM) 0.6 mg iron/mL oral liquid 15 mL 15 mL feeding tube Daily ??? pantoprazole (PROTONIX) 4 mg/mL injection 40 mg 40 mg intravenous Q24H MONET ??? pravastatin (PRAVACHOL) tablet 40 mg 40 mg feeding tube Daily ??? senna 1.76 mg/mL syrup 8.8 mg 8.8 mg feeding tube BID ??? sodium chloride 0.9% flush 0.5-20 mL 0.5-20 mL intra-catheter Q8H MONET ??? sodium chloride 0.9% flush 0.5-20 mL 0.5-20 mL intra-catheter Q8H MONET ??? terazosin (HYTRIN) capsule 20 mg 20 mg feeding tube Nightly ??? thiamine (VITAMIN B-1) 250 mg in sodium chloride 0.9% 100 mL IVPB 250 mg intravenous Q24H MONET Followed by ??? [START ON 06/19/2021] thiamine (VITAMIN B1) tablet 100 mg 100 mg feeding tube Daily As needed PRN Medications Medication Dose Route Frequency Last Admin ??? acetaminophen (TYLENOL) tablet 650 mg 650 mg feeding tube Q4H PRN 650 mg at 06/14/212046 ??? artificial saliva (MOUTH KOTE) spray 2 application 2 application mouth/throat Q4H PRN 2 application at 06/14/212103 ??? bisacodyL (DULCOLAX) suppository 10 mg 10 mg rectal Daily PRN ??? levalbuterol (XOPENEX) 1.25 mg/3 mL nebulizer solution 1.25 mg 1.25 mg nebulization Q6H PRN (RT) 1.25 mg at 06/14/21 0914 ??? ondansetron (ZOFRAN) injection 4 mg 4 mg intravenous Q6H PRN ??? polyvinyl alcohol-povidone (REFRESH CLASSIC) 1.4-0.6 % ophthalmic solution 2 drop 2 drop each eye QID PRN 2 drop at 06/13/21820 ??? sodium chloride 0.9% flush 0.5-20 mL 0.5-20 mL intra-catheter PRN ??? sodium chloride 0.9% flush 0.5-20 mL 0.5-20 mL intra-catheter PRN Labs: Lab Results Component Value Date SODIUM 145 06/15/2021 SODIUM 147 (H) 06/15/2021 SODIUM 145 06/14/2021 Lab Results Component Value Date GLUCOSE 174 06/15/2021 CALCIUM 8.9 06/15/2021 POTASSIUM 5.3 (H) 06/15/2021 CO2 28 06/15/2021 CHLORIDE 111 (H) 06/15/2021 BUNSER 17 06/15/2021 CREATININE 0.88 06/15/2021 Lab Results Component Value Date WBC 7.6 06/15/2021 WBC 7.9 06/14/2021 WBC 6.4 06/13/2021 HGB 12.1 (L) 06/15/2021 HGB 12.6 (L) 06/14/2021 HGB 12.2 (L) 06/13/2021 HCT 34.0 (L) 06/15/2021 HCT 36.0 (L) 06/14/2021 HCT 34.9 (L) 06/13/2021 LABPLAT 126 (L) 06/15/2021 LABPLAT 133 (L) 06/14/2021 LABPLAT 120 (L) 06/13/2021 Lab Results Component Value Date INR 1.1 06/11/2021 INR 1.1 07/13/2020 INR 1.6 (H) 02/21/2020 PT 12.5 06/11/2021 PT 12.3 07/13/2020 PT 17.9 (H) 02/21/2020 APTT 31 06/11/2021 APTT 80 (H) 02/20/2020 APTT 26 02/20/2020 No components found for: TROPONIN PT/OT assessment: PT Recommendation/Plan: [facility]-Way Facility OT Recommendation: Inpatient Rehab Facility Assessment/Plan Hospital Day: 6 Jania Redman is a 71 y.o. year old male who presented with tSAH and small IVH after MGLF. Plan Keppra 500 BID x7 days Respiratory care CIWA protocol F/u eeg afib watch - rate controlled bMRI without structural cause of AMS, head ct overnight stable DVT prophylaxis: ok for medical ppx Responsible team (call resident in bold with questions) Vascular Note created by Clarence Soto MD PhD on 06/16/2021 at 6:50 AM. Cosigned by Seth Kiser MD at 06/16/2021 12:11 PM GREEN MARKETING ANALYST N MARKETING ANALYST N MARKETING ANALYST * Elver Rodriguez MD PhD - 06/15/2021 7:59 PM CST Critical Care Attending Note I have seen and examined this patient on the day of service. I have reviewed and confirmed the history, physical exam, laboratory and radiographic data with the house staff, bedside nursing, and nurse practitioners. I have reviewed and discussed my treatment plan with the ICU team and other medical/practice consultant staff as documented. Patient Briefly, this is a 71 year old man with a history of HTN, atrial fibrillation (on eliquis, HFrEF, and COPD who presents to the ICU in the setting of a TBI with SAH and IVH and persistent encephalopathy with respiratory insufficiency. Events Patient with worsening secretion control and hypoxia overnight ultimately requiring intubation. Exam Opens eyes to noxious stimulation. Does not regard or follow. Strength symmetric. Plan Summary #Traumatic SAH/IVH. Continue keppra. Continue close neurologic monitoring #Encephalopathy: Suspect related to moderate TBI with worsening delerium. EEG negative. Metabolic workup unremarkable. Continue to minimize sedating medications. Supportive care. # Acute respiratory failure: Cont full ventilatory support. Low threshold for empiric antibiotics if signs or new pneumonia. #A fib with RVR: Continue amiodarone. Critical Care Time: I have spent 32 minutes in full attendance with this critically ill patient making frequent reassessments and decisions regarding this patient's complex medical care. Critical care time was exclusive of separately billable procedures, treating other patients and teaching time. Critical care was necessary to treat or prevent imminent or life-threatening deterioration due to acute respiratory failure and required the interventions as described above including ventilator management. N MARKETING ANALYST * Cielo Moore OT - 06/15/2021 9:31 AM CST Occupational Therapy 06/15/21 0931 General OT Missed Visit Reason Change in medical status (Intubated) Recommendation/Plan OT Frequency Monitor status OT - Next Appointment 06/19/21 N MARKETING ANALYST * Wellington Crenshaw NP - 06/15/2021 6:55 AM CST Neuro Critical Care Progress Note Dx: Encephalopathy 71M HTN/HL, a-fib on Eliquis, HFrEF (45-50% EF 2020), COPD not on home O2, legally blind, and hearing loss admitted with trace tSAH and IVH following a fall. Admitted OSH with altered LOC. Initial CTneg but subsequent MRI with tr SAH/IVH. Tx to [facility] service 06/11 where has remained encephalopathic. Medicine consulted for encephalopathy and felt airway was threatened, hence transfer to ICU 06/12. Interval Events: -- At 0030, desat to 80s, placed on NRB 100%, suctioned via nasal trumpet, SpO2 improved to 100%. ABG 7.36/46/167. -- At 0220, desat again and required intubation. Valentine-intubation hypotension, previous antihypertensives held. Vitals Temp Min: 36 ??C (96.8 ??F) Max: 38 ??C (100.4 ??F) Pulse Min: 69 Max: 141 NIBP BP Min: 85/47 Max: 160/97 MAP (mmHg) Av.4 Min: 59 Max: 147 A-line No data recorded I/O: Intake/Output Summary (Last 24 hours) at 06/15/2021 0655 Last data filed at 06/15/2021 0600 Gross per 24 hour Intake 1833.64 ml Output 1325 ml Net 508.64 ml UOP in past 24 hours: 1,325 ml LABS Recent Labs Lab Units 06/14/218 06/14/21 0856 06/14/21 0052 SODIUM mmol/L 145 145 142 POTASSIUM PLASMA mmol/L 4.0 3.9 4.3 CHLORIDE mmol/L 111* 113* 113* CO2 mmol/L 28 29 24 ANIONGAP mmol/L 6 3 5 GLUCOSE mg/dL 192 159 122 BUN SERUM mg/dL 10 9 9 CREATININE mg/dL 0.79* 0.72* 0.75* CALCIUM mg/dL 8.6 8.7 8.4* MAGNESIUM mg/dL 2.0 1.8 2.0 PHOSPHORUS PLASMA mg/dL 2.4 3.1 3.0 Recent Labs Lab Units 06/14/21213706/13/218 06/13/21 1257 06/12/21 1144 06/11/212028 WBC K/cumm 7.9 6.4 5.3 < > 7.1 HEMATOCRIT % 36.0* 34.9* 34.8* < > 42.7 HEMOGLOBIN g/dL 12.6* 12.2* 12.4* < > 14.9 PLATELETS K/cumm 133* 120* 100* < > 137* APTT sec -- -- -- -- 31 INR -- -- -- -- 1.1 < > = values in this interval not displayed. *06/12 1144 CBC is in error Recent Labs Lab Units 06/12/21 1331 06/12/21 1144 ALK PHOS Units/L 86 See Comment BILIRUBIN TOTAL mg/dL 0.7 See Comment TOTAL PROTEIN g/dL 5.5* See Comment ALBUMIN g/dL 3.0* See Comment ALT Units/L 11 See Comment AST Units/L 25 See Comment Recent Labs Lab Units 06/15/21 0422 06/15/21 0112 06/12/21 1144 PH ART 7.45 7.36 7.47* PCO2 ART mmHg 37 46* 31* PO2 ART mmHg 140* 167* 105 HCO3 ART (CALC) mmol/L 26 27 23 O2 SAT ART (NANI) % 100* 99* 98* BASE EXC ART mmol/L 2 0 0 NEURO IMAGING (Most recent) HCT (06/15/2021): Essentially no change. Evolving small volume IVH. The known SAH is not well appreciated, and may bedue to portable technique PHYSICAL EXAM: HEENT: Mucous membranes dry, poor dentition. Sclera anicteric. Cardiac: Irregularly irregular. A-fib. No M/R/G. Pulmonary: Even, unlabored respirations. Symmetric chest rise and fall. Coarse throughout, no wheezing. Abdomen: Rounded but non-distended in appearance, bowel sounds present, soft/non-tender to palpation. Skin: Warm and dry. NEURO EXAM Mental Status Intubated, not sedated. Opens eyes briefly to noxious stim. Does not regard, does not follow commands. Cranial Nerves Surgical/irregular pupils. Gaze midline. + dolls. ETT broderick in place. Strong cough with suctioningvia ETT. Motor Withdraws all extremities to noxious stim NEUROLOGICAL Meds: ??? Keppra 500 mg BID ??? folic acid 1 mg daily ??? MVI 15 ml daily ??? thiamine taper, currently on 250 mg IV daily # Traumatic brain injury w/tSAH/IVH in setting of fall and AC -- continue Keppra x7 days, seizure precautions -- PT, OT, [employer] consults # Encephalopathy - suspect multifactorial with alcohol withdrawal (OSH given librium), TBI, hospital admission/delirium, possible Wernicke's -- Encephalopathy labs thus far unrevealing: TSH 0.8, Folate > 20, B12 742, B1 in process, RPR non-reactive, HIV non-reactive, hepatitis panel non-reactive, ammonia < 20 -- empiric MVI, folate, and high-dose thiamine for possible Wernicke's encephalopathy -- cEEG (06/12-06/13) negative for seizures CARDIOVASCULAR and HEME Meds: ??? amiodarone 400 mg TID ??? Lasix 20 mg daily ??? pravastatin 40 mg daily TTE (06/13): LA is mildly dilated. Normal RV cavity size and function. LV cavity size is normal. Concentric LV remodeling with normal EF=70-75%. Normal Inferior vena cava. Dilated JOSE RAFAEL=4.7 cm and ascending aorta=3.9 cm. # Atrial fibrillation with RVR -- s/p amio gtt 06/13-06/14; continue amiodarone enteral load; f/u with outpatient pharmacovigilance specialist -- metoprolol 50 mg q6 held post-intubation for hypotension; resumed this AM as HR 120s-140s -- monitor on tele; goal HR<120 -- ensure K+ and Mg adequately repleted -- acute SAH/IVH currently precludes therapeutic anticoagulation (previously on Eliquis) # HFpEF -- previously EF 45-50% (2020), now as of 06/13 EF 70-75% -- continue home Lasix -- goal euvolemia # Possible syncope -- + orthostatic symptoms as outpatient per and + orthostatics at OSH -- TTE unrevealing, monitor on telemetry # History of DVT 2019 -- on Eliquis most recently reportedly for a-fib, last dose 06/08 -- LED (06/14) negative for DVT # HTN -- holding home lisinopril 40 mg daily -- SBP <160 # HLD -- continue home pravastatin # Thrombocytopenia, mild -- possibly nutritional or secondary to long-standing alcohol use -- HIV and hepatitis panel non-reactive, folate 742, copper in process -- CBC daily # Macrocytic anemia -- folate/B12 wnl, likely 2/2 long-standing alcohol use -- CBC daily -- hgb goal >7 PULMONARY Resp Min: 11 Max: 30 SpO2 Min: 86 % Max: 100 % End Tidal CO2: 20-31 Ventilator settings: AC/VC 20/500/7.5/40% CXR (06/15): ETT 4.5 cm above jhonny Secretions: thick, humphries, suctioning q4h Meds: ??? Peridex BID # Acute hypoxic respiratory failure -- intubated 06/15 -- currently on AC/VC -- wean to PSV 10/7.5/40% -- Peridex BID -- CXR and ABG daily while intubated RENAL Meds: ??? terazosin 10 mg daily # BPH -- continue home Terazosin (some documentation indicates this is also taken for HTN) -- continue coombs (placed by Urology); likely remove coombs 06/16 GI and ENDO Meds: ??? Colace 100 mg BID ??? Protonix 40 mg daily ??? senna 8.8 mg BID Diet: Diet, Tube Feeding No Tray Jevity 1.5 veronica (NGT); 60 IV fluids: SL IVF Flushes: N/A Last BM: 06/14 x2 # Nutrition/Dysphagia -- continue TF as above -- continue current bowel regimen # GERD -- continue PPI INFECTION RELEVANT/MOST RECENT MICRO LAB DATA: Blood cultures (06/14) NGTD COVID-19 RNA (06/12) negative UA (06/12) negative Meds: ??? N/A No active issues. Yusuf culture for temp >38.5 C per NNICU protocol, CBC daily. ACCESS Lines ?? PIV x2 ?? NG tube ?? ETT Coombs ??? 06/13 Coude (placed by urology but not considered difficult) VTE Prophylaxis Last Venous Doppler: 06/14/2021 negative Prophylaxis: SCDs, SQH 5,000 units q8h CODE STATUS: Full Code Disposition: 9400 NNICU Patient's daughter at bedside and present during ICU rounds. Updated by ICU attending. All questions answered. Cosigned by Elver Rodriguez MD PhD at 06/22/2021 2:10 PM CDT N MARKETING ANALYST * Clarence Soto MD PhD - 06/15/2021 6:54 AM CST Neurosurgery Daily Progress Note 06/15/2021 Hospital Course 06/11 Admitted. HCT with stable ventricular size, small IVH in occipital horns. 06/12: TTSDU, then TTICU for persistently depressed mental status. Repeat head CT stable. Metop for Afib w RVR. Started on high dose thiamine. EEG negative, planning for continuous. 06/13 placed on amio gtt for afib w/ RVR; cEEG d/c'd; TTE wnl 06/14 brain MRI w stable small SAH/IVH, no other infarct/lesion. Hypoxemia and desaturation, intubated overnight, HCT stable. Objective Physical Exam: Intubated, not sedated No EO, does not regard, follows commands Oriented x0 PERRL, gaze conjugate, face taped Localizing uppers and withdrawing lowers L>R Vitals: 24hr min/max vitals: Temp Min: 36 ??C (96.8 ??F) Max: 38 ??C (100.4 ??F) Pulse Min: 69 Max: 141 Resp Min: 11 Max: 30 SpO2 Min: 86 % Max: 100 % MAP (mmHg) Min: 59 Max: 147 Intake and output: I/O last 2 completed shifts: In: 2642.3 [I.V.:952.3; NG/GT:1425; IV Piggyback:265] Out: 2485 [Urine:2485] Medications: Scheduled Scheduled Medications Medication Dose Route Frequency ??? amiodarone (PACERONE) tablet 400 mg 400 mg feeding tube TID Followed by ??? [START ON 06/19/2021] amiodarone (PACERONE) tablet 200 mg 200 mg feeding tube Daily ? ? chlorhexidine (PERIDEX) 0.12 % solution 15 mL 15 mL swish & spit BID ??? docusate (COLACE) 10 mg/mL oral liquid 100 mg 100 mg feeding tube BID ??? fentaNYL (SUBLIMAZE) 50 mcg/mL preservative free injection - ADS Override Pull ??? folic acid (FOLVITE) tablet 1 mg 1 mg feeding tube Daily ??? furosemide (LASIX) tablet 20 mg 20 mg feeding tube Daily ??? heparin 5,000 unit/mL injection 5,000 Units 5,000 Units subcutaneous Q8H MONET ??? levETIRAcetam (KEPPRA) tablet 500 mg 500 mg feeding tube BID ??? [Held by Provider] metoprolol tartrate (LOPRESSOR) immediate release tablet 50 mg 50 mg feedingtube Q6H ??? kowllqqw-fad-djnwtms gluconate (CENTRUM) 0.6 mg iron/mL oral liquid 15 mL 15 mL feeding tube Daily ??? pantoprazole (PROTONIX) 4 mg/mL injection 40 mg 40 mg intravenous Q24H MONET ??? pravastatin (PRAVACHOL) tablet 40 mg 40 mg feeding tube Daily ??? rocuronium (ZEMURON) 10 mg/mL injection - ADS Override Pull ??? senna 1.76 mg/mL syrup 8.8 mg 8.8 mg feeding tube BID ??? sodium chloride 0.9% flush 0.5-20 mL 0.5-20 mL intra-catheter Q8H MONET ??? sodium chloride 0.9% flush 0.5-20 mL 0.5-20 mL intra-catheter Q8H MONET ??? terazosin (HYTRIN) capsule 20 mg 20 mg feeding tube Nightly ??? thiamine (VITAMIN B-1) 250 mg in sodium chloride 0.9% 100 mL IVPB 250 mg intravenous Q24H MONET Followed by ??? [START ON 06/19/2021] thiamine (VITAMIN B1) tablet 100 mg 100 mg feeding tube Daily As needed PRN Medications Medication Dose Route Frequency Last Admin ??? acetaminophen (TYLENOL) tablet 650 mg 650 mg feeding tube Q4H PRN 650 mg at 06/14/212046 ??? artificial saliva (MOUTH KOTE) spray 2 application 2 application mouth/throat Q4H PRN 2 application at 06/14/212103 ??? bisacodyL (DULCOLAX) suppository 10 mg 10 mg rectal Daily PRN ??? levalbuterol (XOPENEX) 1.25 mg/3 mL nebulizer solution 1.25 mg 1.25 mg nebulization Q6H PRN (RT) 1.25 mg at 06/14/21913 ??? ondansetron (ZOFRAN) injection 4 mg 4 mg intravenous Q6H PRN ??? polyvinyl alcohol-povidone (REFRESH CLASSIC) 1.4-0.6 % ophthalmic solution 2 drop 2 drop each eye QID PRN 2 drop at 06/13/21 0821 ??? sodium chloride 0.9% flush 0.5-20 mL 0.5-20 mL intra-catheter PRN ??? sodium chloride 0.9% flush 0.5-20 mL 0.5-20 mL intra-catheter PRN Labs: Lab Results Component Value Date SODIUM 145 06/14/2021 SODIUM 145 06/14/2021 SODIUM 142 06/14/2021 Lab Results Component Value Date GLUCOSE 192 06/14/2021 CALCIUM 8.6 06/14/2021 POTASSIUM 4.0 06/14/2021 CO2 28 06/14/2021 CHLORIDE 111 (H) 06/14/2021 BUNSER 10 06/14/2021 CREATININE 0.79 (L) 06/14/2021 Lab Results Component Value Date WBC 7.9 06/14/2021 WBC 6.4 06/13/2021 WBC 5.3 06/13/2021 HGB 12.6 (L) 06/14/2021 HGB 12.2 (L) 06/13/2021 HGB 12.4 (L) 06/13/2021 HCT 36.0 (L) 06/14/2021 HCT 34.9 (L) 06/13/2021 HCT 34.8 (L) 06/13/2021 LABPLAT 133 (L) 06/14/2021 LABPLAT 120 (L) 06/13/2021 LABPLAT 100 (L) 06/13/2021 Lab Results Component Value Date INR 1.1 06/11/2021 INR 1.1 07/13/2020 INR 1.6 (H) 02/21/2020 PT 12.5 06/11/2021 PT 12.3 07/13/2020 PT 17.9 (H) 02/21/2020 APTT 31 06/11/2021 APTT 80 (H) 02/20/2020 APTT 26 02/20/2020 No components found for: TROPONIN PT/OT assessment: PT Recommendation/Plan: [facility]-Way Facility OT Recommendation: Inpatient Rehab Facility Assessment/Plan Hospital Day: 5 Jania Redman is a 71 y.o. year old male who presented with tSAH and small IVH after MGLF. Plan Keppra 500 BID x7 days Respiratory care CIWA protocol F/u eeg afib watch - rate controlled bMRI without structural cause of AMS, head ct overnight stable DVT prophylaxis: ok for medical ppx Responsible team (call resident in bold with questions) Vascular Note created by Clarence Soto MD PhD on 06/15/2021 at 6:55 AM. Cosigned by Seth Kiser MD at 06/15/2021 4:10 PM GREEN MARKETING ANALYST N MARKETING ANALYST N MARKETING ANALYST * Clarissa Taylor - 06/14/2021 11:00 AM CST SW student met with patient to gather information and discuss discharge planning. Patient was shaking head and moaning in pain. Speech was garbled. SW student called patient's spouse Raine Redman and left voice mail message asking her to call SW. N MARKETING ANALYST * Ying Thompson MD - 06/14/2021 10:42 AM CST Neuro Critical Care Progress Note Dx: Encephalopathy HPI: 71M HTN/HL, a-fib on Eliquis, HFrEF (45-50% EF 2020), COPD not on home O2, legally blind, hearing loss, Ccy p/w trace tSAH and IVH following a fall. Admitted OSH with altered LOC. Initial CT negbut subsequent MRI with tr SAH/IVH. Tx to [facility] service 06/11 where has remained encephalopathic. Medicine consulted for encephalopathy and felt airway was threatened, hence transfer to ICU 06/12. Interval Events: cEEG negative for seizures and discontinued. Amio continued. TTE with improved EF from prior (70-75%). Ongoing oliguria, question of coombs malpositioning in false passage as + UOP when removed for replacement but no UOP when replaced. Urology consulted and placed coombs without difficulty (coude). Overnight UOP responsive to lasix (20 mg). IVF reduced. TF started. Vitals Temp Min: 36 ??C (96.8 ??F) Max: 36.8 ??C (98.2 ??F) Pulse Min: 69 Max: 116 NIBP BP Min: 113/91 Max: 153/98 MAP (mmHg) Av.1 Min: 90 Max: 121 A-line No data recorded I/O: Intake/Output Summary (Last 24 hours) at 06/14/2021 1043 Last data filed at 06/14/2021 1014 Gross per 24 hour Intake 3580.63 ml Output 1730 ml Net 1850.63 ml UOP: 1585 mL documented LABS Recent Labs Lab Units 06/14/21 0856 06/14/21 0052 06/13/21 2252 06/13/21 1108 06/12/21 1634 06/12/21 1331 SODIUM mmol/L 145 142 See Comment < > 147* 146* POTASSIUM PLASMA mmol/L 3.9 4.3 See Comment < > 4.0 3.8 CHLORIDE mmol/L 113* 113* See Comment < > 108 111* CO2 mmol/L 29 24 See Comment < > 27 25 ANIONGAP mmol/L 3 5 See Comment < > 12 11 GLUCOSE mg/dL 159 122 See Comment < > 106 85 BUN SERUM mg/dL 9 9 See Comment < > 10 9 CREATININE mg/dL 0.72* 0.75* See Comment < > 0.81 0.74* CALCIUM mg/dL 8.7 8.4* See Comment < > 8.8 8.0* MAGNESIUM mg/dL 1.8 2.0 -- -- 2.5 2.9* PHOSPHORUS PLASMA mg/dL 3.1 3.0 -- -- -- 3.7 < > = values in this interval not displayed. Recent Labs Lab Units 06/13/218 06/13/21 1257 06/13/21 1108 06/12/21 1144 06/11/212028 WBC K/cumm 6.4 5.3 4.9 < > 7.1 HEMATOCRIT % 34.9* 34.8* 29.2* < > 42.7 HEMOGLOBIN g/dL 12.2* 12.4* 10.0* < > 14.9 PLATELETS K/cumm 120* 100* 111* < > 137* APTT sec -- -- -- -- 31 INR -- -- -- -- 1.1 < > = values in this interval not displayed. *06/12 1144 CBC is in error Recent Labs Lab Units 06/12/21 1331 06/12/21 1144 ALK PHOS Units/L 86 See Comment BILIRUBIN TOTAL mg/dL 0.7 See Comment TOTAL PROTEIN g/dL 5.5* See Comment ALBUMIN g/dL 3.0* See Comment ALT Units/L 11 See Comment AST Units/L 25 See Comment Recent Labs Lab Units 06/12/21 1144 06/12/21 0959 PH ART 7.47* 7.41 PCO2 ART mmHg 31* 38 PO2 ART mmHg 105 77* HCO3 ART (CALC) mmol/L 23 24 O2 SAT ART (NANI) % 98* 94 BASE EXC ART mmol/L 0 0 IMAGING (Most recent) NEURO IMAGING: MRI W/WO (06/14/21) Prelim IMPRESSION: 1. Small amount of subarachnoid, intraventricular, and intraparenchymal hemorrhage as described above, grossly stable compared with prior exam. 2. No acute cerebral infarct or enhancing lesion. PHYSICAL EXAM: HEENT: Mucous membranes dry, poor dentition. Sclera anicteric. Cardiac: Irregularly irregular. A-fib on monitor but rate controlled. No M/R/G. Pulmonary: Even, unlabored respirations. Symmetric chest rise and fall. Coarse bilaterally with scattered wheezes. Abdomen: Rounded but non-distended in appearance, bowel sounds present, soft/non-tender to palpation. Skin: Warm and dry. NEURO EXAM Mental Status Sleepy, opens eyes briefly to stim but does not sustain eye opening. Oriented to self this morning only. Follows simple commands (thumb, two fingers L > R and wiggles bilateral toes). Cranial Nerves Surgical/irregular pupils. Gaze dysconjugate. Grossly intact horizontal EOM. No nystagmus appreciated. Face appears grossly symmetric. Severe dysarthria. + Spontaneous cough. Motor >AG all 4 but brisker on L: Follows in LUE/LLE. Localizes L more briskly than RUE. Withdraws BLEand intermittently distally 06/10. NEUROLOGICAL Meds: ??? Keppra 500 mg q 12 hours ??? Tylenol prn (x 1 dose/24 hours) # Traumatic brain injury w/tSAH/IVH in setting of fall and AC -- Continue Keppra for 7 days, seizure precautions -- PT, OT, [employer] consults # Encephalopathy - suspect multifactorial with alcohol withdrawal (OSH given librium), TBI, hospital admission/delirium, possible Wernicke's -- Encephalopathy labs thus far unrevealing: TSH 0.8, Folate > 20, B12 742, B1 in process, RPR non-reactive, HIV non-reactive, hepatitis panel non-reactive, Ammonia < 20 -- Empiric MVI, thiamine, folate - high-dose thiamine for possible Wernicke's encephalopathy -- cEEG negative 06/12-06/13 -- Follow-up final MRI read CARDIOVASCULAR and HEME Meds: ??? Metoprolol 50 mg every 6 hours ??? Amiodarone 400 mg TID ??? Pravastatin 40 mg daily ??? Hydralazine prn (x 0 doses/24 hours) ??? Labetalol prn (x 0 doses/24 hours) EKG: No new TTE (06/13): SUMMARY: LA is mildly dilated. Normal RV cavity size and function. LV cavity size is normal. Concentric LV remodeling with normal EF=70-75%. Normal Inferior vena cava. Dilated JOSE RAFAEL=4.7 cm and ascending aorta=3.9 cm. No previous study. # Atrial fibrillation with RVR -- Continue home-dose equivalent BB - Metop 50 q 6 hours (home 100 mg BID) -- s/p Amio gtt 06/13-06/14, continue enteral load (400 mg TID x 5 days, 200 mg daily thereafter) - canfollow-up with his outpatient pharmacovigilance specialist -- Monitor on tele; goal HR<120 -- Ensure K+ and Mg adequately repleted -- Acute SAH/IVH currently precludes therapeutic anticoagulation (previously on Eliquis) # HFpEF -- Previously 2020 EF 45-50%, now as of 06/13 EF 70-75% -- Takes furosemide 40 mg daily as outpatient, consider restarting today vs tomorrow scheduled -- Goal euvolemia # Possible syncope -- + Orthostatic symptoms as outpatient per and + orthostatics at OSH (24 pt -- TTE unrevealing, monitor on tele -- Orthostatic at OSH # History of DVT 2019 -- On Eliquis most recently reportedly for a-fib, last dose 06/08 -- Repeat LE duplex to reassess status -- Discuss timing of initiation of DVT ppx with neurosurgery -- consider aspirin 325 mg in future # HTN -- Have not yet restarted home lisinopril (40 mg daily) while re-initiating beta-blockade, reassessfor reintroduction daily -- SBP < 160- will utilize short-acting prns with hydralazine and labetalol to treat for now # HLD -- Continue home pravastatin # Thrombocytopenia, mild -- Possibly nutritional, possibly secondary to long-standing alcohol use -- HIV and hepatitis panel non-reactive, folate 742, copper in process -- Monitor in CBC daily # Macrocytic anemia -- Folate/B12 wnl, likely secondary to long-standing alcohol use -- Monitor in CBC daily -- Hgb > 7 PULMONARY Resp Min: 11 Max: 26 SpO2 Min: 92 % Max: 100 % End Tidal CO2: N/A Ventilator settings: N/A CXR: No new Secretions: Coughs and swallows Meds: ??? Xopenex 1.25 mg every 6 hours prn ??? Artificial saliva prn # Acute pulmonary insufficiency secondary to altered sensorium -- ABGs 06/12 ABGs reassuring and currently protecting airway -- Wheezing resolved - change Xopenex to prn -- Continue cough assist q 4 hours and HHFT -- Aggressive oral hygiene, artificial saliva for dry mucous membranes and dried oral secretions -- HOB elevated 30, WENCESLAO precautions -- Nasal trumpet prn if obstructing and hypoxic/requiring frequent suctioning -- trial of q4h suctioning unless desats RENAL Meds: ??? Terazosin 10 mg daily # BPH -- Continue home Terazosin (some documentation indicates this is also taken for HTN) -- Continue coombs for now # Oliguria, resolved -- Not consistently fluid responsive, had been 0 mL on bladder scan, coombs replaced with initial concern for false passage per nursing as had urine when coombs removed but not inserted prompting urology c/s to place coombs (06/13) -- Subsequent re-development of oliguria overnight 06/13-06/14 and lasix responsive -- Monitor I/O output -- restart home Lasix schedule 20 mg daily GI and ENDO Meds: ??? Colace 100 mg BID ??? Senna 8.8 mg BID ??? Protonix 40 mg daily ??? Bisacodyl prn ??? Zofran prn Diet: Diet, Tube Feeding No Tray Jevity 1.5 veronica; 60 IV fluids: NS @ 75 ml/hr (TFR) Flushes: N/A Last BM: Prior to admission # Nutrition/Dysphagia -- Continue MVI, folate, thiamine supplementation (also takes these at home per SO) -- NG for enteral access - advance TF to goal as tolerated monitoring BMP/Mg/Phos q 12 hours for now as surveillance for refeeding syndrome -- [employer] eval for formal swallow (failed 06/13) -- Aspiration precautions -- SLIV # GERD -- Continue PPI INFECTION RELEVANT/MOST RECENT MICRO LAB DATA: COVID-19 RNA: (06/12) Not detected Urinalysis/Urine culture: UA (06/12) WBC 0-5, nitrite/LE negative Meds: ??? N/A Of note, has remote history in 2019 of intra-abdominal abscess which was ESBL E. Coli +. Monitor CBC daily. Yusuf-culture q 48 hours prn for T >/= 38.5 C or < 36 C. --Will send blood cultures x 2 today 35.9 ACCESS Lines ?? PIVs ?? NG tube Coombs ??? 06/13 Coude (placed by urology but not considered difficult) VTE Prophylaxis Last Venous Doppler: 2019 + Right profunda DVT, repeat pending Prophylaxis: SCDs, SQH 5000 u q 8 CODE STATUS: Full Code Disposition: 9400 NNICU Cassie Trent NP I reviewed and confirmed the history, physical exam, laboratory and radiographic data with the house staff as documented above. I reviewed and discussed my treatment plan with the ICU team and other medical/practice consultant staff as documented in the note above. Ying Thompson MD Neurocritical Care Fellow Cosigned by Joce Rodriguez MD PhD at 06/14/2021 5:09 PM GREEN MARKETING ANALYST N MARKETING ANALYST N MARKETING ANALYST * Cassie Trent, TEXTILE MACHINE MAINTENANCE MECHANIC - 06/14/2021 7:47 AM CST Neuro Critical Care Progress Note Dx: Encephalopathy HPI: 71M HTN/HL, a-fib on Eliquis, HFrEF (45-50% EF 2020), COPD not on home O2, legally blind, hearing loss, Ccy p/w trace tSAH and IVH following a fall. Admitted OSH with altered LOC. Initial CT negbut subsequent MRI with tr SAH/IVH. Tx to [facility] NSGY service 06/11 where has remained encephalopathic. Medicine consulted for encephalopathy and felt airway was threatened, hence transfer to ICU 06/12. Interval Events: cEEG negative for seizures and discontinued. Amio continued. TTE with improved EF from prior (70-75%). Ongoing oliguria, question of coombs malpositioning in false passage as + UOP when removed for replacement but no UOP when replaced. Urology consulted and placed coombs without difficulty (coude). Overnight UOP responsive to lasix (20 mg). IVF reduced. TF started. Vitals Temp Min: 35.9 ??C (96.62 ??F) Max: 36.8 ??C (98.2 ??F) Pulse Min: 66 Max: 116 NIBP BP Min: 113/91 Max: 154/94 MAP (mmHg) Av Min: 89 Max: 121 A-line No data recorded I/O: Intake/Output Summary (Last 24 hours) at 06/14/2021 0747 Last data filed at 06/14/2021 0700 Gross per 24 hour Intake 3594.91 ml Output 1585 ml Net 2009.91 ml UOP: 1585 mL documented LABS Recent Labs Lab Units 06/14/21 0052 06/13/21 2252 06/13/21 1257 06/13/21 1108 06/12/21 1634 06/12/21 1331 06/12/21 1144 SODIUM mmol/L 142 See Comment 143 < > 147* 146* See Comment POTASSIUM PLASMA mmol/L 4.3 See Comment 4.7 < > 4.0 3.8 See Comment CHLORIDE mmol/L 113* See Comment 112* < > 108 111* See Comment CO2 mmol/L 24 See Comment 26 < > 27 25 See Comment ANIONGAP mmol/L 5 See Comment 5 < > 12 11 See Comment GLUCOSE mg/dL 122 See Comment 125 < > 106 85 See Comment BUN SERUM mg/dL 9 See Comment 10 < > 10 9 See Comment CREATININE mg/dL 0.75* See Comment 0.71* < > 0.81 0.74* See Comment CALCIUM mg/dL 8.4* See Comment 8.4* < > 8.8 8.0* See Comment MAGNESIUM mg/dL 2.0 -- -- -- 2.5 2.9* See Comment PHOSPHORUS PLASMA mg/dL 3.0 -- -- -- -- 3.7 See Comment < > = values in this interval not displayed. Recent Labs Lab Units 06/13/21 2048 06/13/21 1257 06/13/21 1108 06/12/21 1144 06/11/212028 WBC K/cumm 6.4 5.3 4.9 < > 7.1 HEMATOCRIT % 34.9* 34.8* 29.2* < > 42.7 HEMOGLOBIN g/dL 12.2* 12.4* 10.0* < > 14.9 PLATELETS K/cumm 120* 100* 111* < > 137* APTT sec -- -- -- -- 31 INR -- -- -- -- 1.1 < > = values in this interval not displayed. *06/12 114 CBC is in error Recent Labs Lab Units 06/12/21 1331 06/12/21 1144 ALK PHOS Units/L 86 See Comment BILIRUBIN TOTAL mg/dL 0.7 See Comment TOTAL PROTEIN g/dL 5.5* See Comment ALBUMIN g/dL 3.0* See Comment ALT Units/L 11 See Comment AST Units/L 25 See Comment Recent Labs Lab Units 06/12/21 1144 06/12/21 0959 PH ART 7.47* 7.41 PCO2 ART mmHg 31* 38 PO2 ART mmHg 105 77* HCO3 ART (CALC) mmol/L 23 24 O2 SAT ART (NANI) % 98* 94 BASE EXC ART mmol/L 0 0 IMAGING (Most recent) NEURO IMAGING: MRI W/WO (06/14/21) Prelim IMPRESSION: 1. Small amount of subarachnoid, intraventricular, and intraparenchymal hemorrhage as described above, grossly stable compared with prior exam. 2. No acute cerebral infarct or enhancing lesion. PHYSICAL EXAM: HEENT: Mucous membranes dry, poor dentition. Sclera anicteric. Cardiac: Irregularly irregular. A-fib on monitor but rate controlled. No M/R/G. Pulmonary: Even, unlabored respirations. Symmetric chest rise and fall. Coarse bilaterally with scattered wheezes. Abdomen: Rounded but non-distended in appearance, bowel sounds present, soft/non-tender to palpation. Skin: Warm and dry. NEURO EXAM Mental Status Sleepy, opens eyes briefly to stim but does not sustain eye opening. Oriented to self this morning only. Follows simple commands (thumb, two fingers L > R and wiggles bilateral toes). Cranial Nerves Surgical/irregular pupils. Gaze dysconjugate. Grossly intact horizontal EOM. No nystagmus appreciated. Face appears grossly symmetric. Severe dysarthria. + Spontaneous cough. Motor >AG all 4 but brisker on L: Follows in LUE/LLE. Localizes L more briskly than RUE. Withdraws BLEand intermittently distally 06/10. NEUROLOGICAL Meds: ??? Keppra 500 mg q 12 hours ??? Tylenol prn (x 1 dose/24 hours) # Traumatic brain injury w/tSAH/IVH in setting of fall and AC -- Continue Keppra for 7 days, seizure precautions -- PT, OT, [employer] consults # Encephalopathy - suspect multifactorial with alcohol withdrawal (OSH given librium), TBI, hospital admission/delirium, possible Wernicke's -- Encephalopathy labs thus far unrevealing: TSH 0.8, Folate > 20, B12 742, B1 in process, RPR non-reactive, HIV non-reactive, hepatitis panel non-reactive, Ammonia < 20 -- Empiric MVI, thiamine, folate - high-dose thiamine for possible Wernicke's encephalopathy -- cEEG negative 06/12-06/13 -- Follow-up final MRI read, thus far unrevealing CARDIOVASCULAR and HEME Meds: ??? Metoprolol 50 mg every 6 hours ??? Amiodarone 400 mg TID ??? Pravastatin 40 mg daily ??? Hydralazine prn (x 0 doses/24 hours) ??? Labetalol prn (x 0 doses/24 hours) EKG: No new TTE (06/13): SUMMARY: LA is mildly dilated. Normal RV cavity size and function. LV cavity size is normal. Concentric LV remodeling with normal EF=70-75%. Normal Inferior vena cava. Dilated JOSE RAFAEL=4.7 cm and ascending aorta=3.9 cm. No previous study. # Atrial fibrillation with RVR -- Continue home-dose equivalent BB - Metop 50 q 6 hours (home 100 mg BID) -- s/p Amio gtt 06/13-06/14, continue enteral load (400 mg TID x 5 days, 200 mg daily thereafter) - canfollow-up with his outpatient pharmacovigilance specialist -- Monitor on tele; goal HR<120 -- Ensure K+ and Mg adequately repleted -- Acute SAH/IVH currently precludes therapeutic anticoagulation (previously on Eliquis) # HFpEF -- Previously 2020 EF 45-50%, now as of 06/13 EF 70-75% -- Takes furosemide 40 mg daily as outpatient, consider restarting today vs tomorrow scheduled -- Goal euvolemia # Possible syncope -- + Orthostatic symptoms as outpatient per and + orthostatics at OSH (24 pt -- TTE unrevealing, monitor on tele -- Orthostatic at OSH # History of DVT 2019 -- On Eliquis most recently reportedly for a-fib, last dose 06/08 -- Repeat LE duplex to reassess status # HTN -- Have not yet restarted home lisinopril (40 mg daily) while re-initiating beta-blockade, reassessfor reintroduction daily -- SBP < 160- will utilize short-acting prns with hydralazine and labetalol to treat for now # HLD -- Continue home pravastatin # Thrombocytopenia, mild -- Possibly nutritional, possibly secondary to long-standing alcohol use -- HIV and hepatitis panel non-reactive, folate 742, copper in process -- Monitor in CBC daily # Macrocytic anemia -- Folate/B12 wnl, likely secondary to long-standing alcohol use -- Monitor in CBC daily -- Hgb > 7 PULMONARY Resp Min: 11 Max: 26 SpO2 Min: 92 % Max: 100 % End Tidal CO2: N/A Ventilator settings: N/A CXR: No new Secretions: Coughs and swallows Meds: ??? Xopenex 1.25 mg every 6 hours prn ??? Artificial saliva prn # Acute pulmonary insufficiency secondary to altered sensorium -- ABGs 06/12 ABGs reassuring and currently protecting airway -- Wheezing resolved - change Xopenex to prn -- Continue cough assist q 4 hours and HHFT, mobilize -- Aggressive oral hygiene, artificial saliva for dry mucous membranes and dried oral secretions -- HOB elevated, WENCESLAO precautions -- Nasal trumpet prn if obstructing and hypoxic/requiring frequent suctioning RENAL Meds: ??? Terazosin 10 mg daily # BPH -- Continue home Terazosin (some documentation indicates this is also taken for HTN) but increase dose to 20 mg daily -- Continue coombs for now, void trial in 2-3 days # Oliguria, resolved -- Not consistently fluid responsive, had been 0 mL on bladder scan, coombs replaced with initial concern for false passage per nursing as had urine when coombs removed but not inserted prompting urology c/s to place coombs (06/13) -- Subsequent re-development of oliguria overnight 06/13-06/14 and lasix responsive -- Monitor I/O output -- Lasix prn - consider scheduling home dose GI and ENDO Meds: ??? Colace 100 mg BID ??? Senna 8.8 mg BID ??? Protonix 40 mg daily ??? Bisacodyl prn ??? Zofran prn Diet: Diet, Tube Feeding No Tray Jevity 1.5 veronica; 60 IV fluids: NS @ 75 ml/hr (TFR) Flushes: N/A Last BM: Prior to admission # Nutrition/Dysphagia -- Continue MVI, folate, thiamine supplementation (also takes these at home per SO) -- NG for enteral access - advance TF to goal as tolerated monitoring BMP/Mg/Phos q 12 hours for now as surveillance for refeeding syndrome -- Saline-lock once IVF at goal -- [employer] eval for formal swallow (failed 06/13) -- Aspiration precautions # GERD -- Continue PPI INFECTION RELEVANT/MOST RECENT MICRO LAB DATA: COVID-19 RNA: (06/12) Not detected Urinalysis/Urine culture: UA (06/12) WBC 0-5, nitrite/LE negative Meds: ??? N/A Of note, has remote history in 2019 of intra-abdominal abscess which was ESBL E. Coli +. Monitor CBC daily. Yusuf-culture q 48 hours prn for T >/= 38.5 C or < 36 C. --Will send blood cultures x 2 today 35.9 ACCESS Lines ?? PIVs ?? NG tube Coombs ??? 06/13 Coude (placed by urology but not considered difficult) VTE Prophylaxis Last Venous Doppler: 2019 + Right profunda DVT, repeat pending Prophylaxis: SCDs, SQH 5000 u q 8 CODE STATUS: Full Code Disposition: 9400 [facility]ICU Cosigned by Joce Rodriguez MD PhD at 06/14/2021 5:09 PM GREEN MARKETING ANALYST N MARKETING ANALYST N MARKETING ANALYST N MARKETING ANALYST * Clarence Soto MD PhD - 06/14/2021 6:53 AM CST Neurosurgery Daily Progress Note 06/14/2021 Hospital Course 06/11 Admitted. HCT with stable ventricular size, small IVH in occipital horns. 06/12: TTSDU, then TTICU for persistently depressed mental status. Repeat head CT stable. Metop for Afib w RVR. Started on high dose thiamine. EEG negative, planning for continuous. 06/13 placed on amio gtt for afib w/ RVR; cEEG d/c'd; TTE wnl Objective Physical Exam: Attempts to open eyes to voice, does not regard, no follows commands Oriented x0 but appropriate words (stop), dysarthric speech, not oriented to place or year PERRL, gaze conjugate, no cooperation with face or tongue Localizing uppers and withdrawing lowers Vitals: 24hr min/max vitals: Temp Min: 35.9 ??C (96.62 ??F) Max: 36.8 ??C (98.2 ??F) Pulse Min: 66 Max: 116 Resp Min: 11 Max: 26 SpO2 Min: 92 % Max: 100 % MAP (mmHg) Min: 89 Max: 121 Intake and output: I/O last 2 completed shifts: In: 3399.2 [I.V.:2119.2; NG/GT:270; IV Piggyback:1010] Out: 425 [Urine:425] Medications: Scheduled Scheduled Medications Medication Dose Route Frequency ??? amiodarone (PACERONE) tablet 400 mg 400 mg feeding tube TID Followed by ??? [START ON 06/19/2021] amiodarone (PACERONE) tablet 200 mg 200 mg feeding tube Daily ??? docusate (COLACE) 10 mg/mL oral liquid 100 mg 100 mg feeding tube BID ??? folic acid (FOLVITE) tablet 1 mg 1 mg feeding tube Daily ??? heparin 5,000 unit/mL injection 5,000 Units 5,000 Units subcutaneous Q8H MONET ??? levETIRAcetam (KEPPRA) tablet 500 mg 500 mg feeding tube BID ??? metoprolol tartrate (LOPRESSOR) immediate release tablet 50 mg 50 mg feeding tube Q6H ??? hrpdjoxd-bty-ialvzst gluconate (CENTRUM) 0.6 mg iron/mL oral liquid 15 mL 15 mL feeding tube Daily ??? pantoprazole (PROTONIX) 4 mg/mL injection 40 mg 40 mg intravenous Q24H MONET ??? pravastatin (PRAVACHOL) tablet 40 mg 40 mg feeding tube Daily ??? senna 1.76 mg/mL syrup 8.8 mg 8.8 mg feeding tube BID ??? sodium chloride 0.9% flush 0.5-20 mL 0.5-20 mL intra-catheter Q8H MONET ??? sodium chloride 0.9% flush 0.5-20 mL 0.5-20 mL intra-catheter Q8H MONET ??? terazosin (HYTRIN) capsule 10 mg 10 mg feeding tube Nightly ??? thiamine (VITAMIN B-1) 500 mg in sodium chloride 0.9% 100 mL IVPB 500 mg intravenous Q8H Followed by ??? thiamine (VITAMIN B-1) 250 mg in sodium chloride 0.9% 100 mL IVPB 250 mg intravenous Q24H MONET Followed by ??? [START ON 06/19/2021] thiamine (VITAMIN B1) tablet 100 mg 100 mg feeding tube Daily As needed PRN Medications Medication Dose Route Frequency Last Admin ??? acetaminophen (TYLENOL) tablet 650 mg 650 mg feeding tube Q4H PRN 650 mg at 06/13/21 2147 ??? artificial saliva (MOUTH KOTE) spray 2 application 2 application mouth/throat Q4H PRN 2 application at 06/13/21 1158 ??? bisacodyL (DULCOLAX) suppository 10 mg 10 mg rectal Daily PRN ??? hydrALAZINE (APRESOLINE) injection 10 mg 10 mg intravenous Q30 Min PRN Or ??? labetaloL (NORMODYNE,TRANDATE) injection 10 mg 10 mg intravenous Q30 Min PRN 10 mg at 06/12/21 1819 ??? levalbuterol (XOPENEX) 1.25 mg/3 mL nebulizer solution 1.25 mg 1.25 mg nebulization Q6H PRN (RT) ??? ondansetron (ZOFRAN) injection 4 mg 4 mg intravenous Q6H PRN ??? polyvinyl alcohol-povidone (REFRESH CLASSIC) 1.4-0.6 % ophthalmic solution 2 drop 2 drop each eye QID PRN 2 drop at 06/13/21 0821 ??? sodium chloride 0.9% flush 0.5-20 mL 0.5-20 mL intra-catheter PRN ??? sodium chloride 0.9% flush 0.5-20 mL 0.5-20 mL intra-catheter PRN Labs: Lab Results Component Value Date SODIUM 142 06/14/2021 SODIUM See Comment 06/13/2021 SODIUM 143 06/13/2021 Lab Results Component Value Date GLUCOSE 122 06/14/2021 CALCIUM 8.4 (L) 06/14/2021 POTASSIUM 4.3 06/14/2021 CO2 24 06/14/2021 CHLORIDE 113 (H) 06/14/2021 BUNSER 9 06/14/2021 CREATININE 0.75 (L) 06/14/2021 Lab Results Component Value Date WBC 6.4 06/13/2021 WBC 5.3 06/13/2021 WBC 4.9 06/13/2021 HGB 12.2 (L) 06/13/2021 HGB 12.4 (L) 06/13/2021 HGB 10.0 (L) 06/13/2021 HCT 34.9 (L) 06/13/2021 HCT 34.8 (L) 06/13/2021 HCT 29.2 (L) 06/13/2021 LABPLAT 120 (L) 06/13/2021 LABPLAT 100 (L) 06/13/2021 LABPLAT 111 (L) 06/13/2021 Lab Results Component Value Date INR 1.1 06/11/2021 INR 1.1 07/13/2020 INR 1.6 (H) 02/21/2020 PT 12.5 06/11/2021 PT 12.3 07/13/2020 PT 17.9 (H) 02/21/2020 APTT 31 06/11/2021 APTT 80 (H) 02/20/2020 APTT 26 02/20/2020 No components found for: TROPONIN PT/OT assessment: PT Recommendation/Plan: [facility] OT Recommendation: Inpatient Rehab Facility Assessment/Plan Hospital Day: 4 Jania Redman is a 71 y.o. year old male who presented with tSAH and small IVH after MGLF. Plan Keppra 500 BID x7 days PT/OT, dispo planning CIWA protocol F/u eeg - negative afib watch - rate controlled bMRI without structural cause of AMS, f/u read DVT prophylaxis: ok for medical ppx Responsible team (call resident in bold with questions) Vascular Note created by Clarence Soto MD PhD on 06/14/2021 at 6:53 AM. Cosigned by Seth Kiser MD at 06/14/2021 8:24 AM GREEN MARKETING ANALYST N MARKETING ANALYST N MARKETING ANALYST * Ying Thompson MD - 06/13/2021 12:11 PM CST Neuro Critical Care Progress Note Dx: Encephalopathy HPI: 71M HTN/HL, a-fib on Eliquis, HFrEF (45-50% EF 2020), COPD not on home O2, legally blind, hearing loss, Ccy p/w trace tSAH and IVH following a fall. Admitted OSH with altered LOC. Initial CT negbut subsequent MRI with tr SAH/IVH. Tx to [facility] NSGY service 06/11 where has remained encephalopathic. Medicine consulted for encephalopathy and felt airway was threatened, hence transfer to ICU 06/12. Interval Events: CT head stable. Routine extended EEG followed by cEEG for ongoing encephalopathy. High-dose thiamine started. HHFT placed, cough assist initiated. Mg and K repleted. RVR 150s on ICU admission, transiently improved with labetalol/metoprolol pushes but remained in RVR. Mg/K repleted.LR bolus 500 x 1 and started on IVF for oliguria. NG placed and enteral Metop started 25 q 6, titrated to 50 q 6 but RVR refractory to this. Amio loaded/infusion started overnight with rate control achieved. Overnight IVF increased from 50 ml to 75 ml/hr for borderline low UOP. Vitals Temp Min: 35.9 ??C (96.62 ??F) Max: 37 ??C (98.6 ??F) Pulse Min: 66 Max: 154 NIBP BP Min: 108/82 Max: 182/134 MAP (mmHg) Av.4 Min: 89 Max: 148 A-line No data recorded I/O: Intake/Output Summary (Last 24 hours) at 06/13/2021 1212 Last data filed at 06/13/2021 1200 Gross per 24 hour Intake 2664.98 ml Output 570 ml Net 2094.98 ml Actually + 1865.7 mL per nursing documentation UOP: 550 mL documented (no 6 AM output charted but reportedly had 50-75 out) LABS Recent Labs Lab Units 06/12/21 1634 06/12/21 1331 06/12/21 1144 SODIUM mmol/L 147* 146* See Comment POTASSIUM PLASMA mmol/L 4.0 3.8 See Comment CHLORIDE mmol/L 108 111* See Comment CO2 mmol/L 27 25 See Comment ANIONGAP mmol/L 12 11 See Comment GLUCOSE mg/dL 106 85 See Comment BUN SERUM mg/dL 10 9 See Comment CREATININE mg/dL 0.81 0.74* See Comment CALCIUM mg/dL 8.8 8.0* See Comment MAGNESIUM mg/dL 2.5 2.9* See Comment PHOSPHORUS PLASMA mg/dL -- 3.7 See Comment Recent Labs Lab Units 06/13/21 1108 06/12/21 1634 06/12/21 1331 06/12/21 1144 06/11/21 2029 WBC K/cumm 4.9 8.3 7.5 < > 7.1 HEMATOCRIT % 29.2* 41.4 39.4 < > 42.7 HEMOGLOBIN g/dL 10.0* 14.2 13.5 < > 14.9 PLATELETS K/cumm 111* 141* 126* < > 137* APTT sec -- -- -- -- 31 INR -- -- -- -- 1.1 < > = values in this interval not displayed. *06/13 1143 CBC is in error Recent Labs Lab Units 06/12/21 1331 06/12/21 1144 ALK PHOS Units/L 86 See Comment BILIRUBIN TOTAL mg/dL 0.7 See Comment TOTAL PROTEIN g/dL 5.5* See Comment ALBUMIN g/dL 3.0* See Comment ALT Units/L 11 See Comment AST Units/L 25 See Comment Recent Labs Lab Units 06/12/21 1144 06/12/21 0959 PH ART 7.47* 7.41 PCO2 ART mmHg 31* 38 PO2 ART mmHg 105 77* HCO3 ART (CALC) mmol/L 23 24 O2 SAT ART (NANI) % 98* 94 BASE EXC ART mmol/L 0 0 IMAGING (Most recent) NEURO IMAGING: CT (06/12/21 [facility]) IMPRESSION: Evolving small volume intraventricular hemorrhage and subarachnoid hemorrhage not as well visualized on the current exam. There is no evidence of interval bleed. PHYSICAL EXAM: HEENT: Mucous membranes dry, poor dentition. Sclera anicteric. Cardiac: Irregularly irregular. A-fib RVR on monitor but rate controlled. No M/R/G. Pulmonary: Even, unlabored respirations. Symmetric chest rise and fall. Coarse bilaterally. Abdomen: Rounded but non-distended in appearance, bowel sounds present, soft/non-tender to palpation. Skin: Warm and dry. NEURO EXAM Mental Status Sleepy, opens eyes briefly to stim but does not sustain eye opening. Intermittently follows simple commands (thumb, two fingers L > R and wiggles bilateral toes). Oriented to self and location [facility] but states month as May . More verbally interactive with examiner today. Cranial Nerves PERRL but irregularly shaped. Gaze dysconjugate. Does not participate with EOM this AM and resists to oculocephalic maneuver. No nystagmus appreciated. Mild nasolabial fold flattening on right. Severe dysarthria. + Spontaneous cough. Motor >AG all 4 but brisker on L: Follows in LUE/LLE. Localizes L more briskly than RUE. Withdraws BLEand intermittently distally 06/10. NEUROLOGICAL Meds: ??? Keppra 500 mg q 12 hours ??? Tylenol prn (x 1 dose/24 hours) # Traumatic brain injury w/tSAH/IVH in setting of fall and AC -- Continue Keppra for 7 days pending EEG -- PT, OT, [employer] consults # Encephalopathy - suspect multifactorial with alcohol withdrawal (OSH given librium), TBI, hospital admission/delirium, possible Wernicke's -- SO denies recent confusion however describes episode of self-limited dysarthria approx 2 weeks prior to admission, confusion after fall approx 1 week ago, and recent fall with loss of consciousness. Long-standing history of daily alcohol use, last drink presumably 3/3 -- Encephalopathy labs thus far unrevealing: TSH 0.8, Folate > 20, B12 742, B1 in process, RPR non-reactive, HIV non-reactive, hepatitis panel non-reactive -- Empiric MVI, thiamine, folate - high-dose thiamine for possible Wernicke's encephalopathy -- Discontinue cEEG after 24 hours -- MRI with/without after EEG given focal exam findings -- Seizure precautions CARDIOVASCULAR and HEME Meds: ??? Metoprolol 50 mg every 6 hours ??? Amiodarone 1 mg/min ??? Pravastatin 40 mg daily ??? Hydralazine prn (x 0 doses/24 hours) ??? Labetalol prn (x 4 doses/24 hours) EKG: No new # Atrial fibrillation with RVR -- Continue home-dose equivalent BB - Metop 50 q 6 hours (home 100 mg BID) -- Continue Amiodarone gtt, tapers this AM to 0.5 mg/min -- transition to Amiodarone enterally -- Monitor on tele; goal HR<120 -- Ensure K+ and Mg adequately repleted -- Acute SAH/IVH currently precludes therapeutic anticoagulation (previously on Eliquis) # HFrEF EF 45% -- Takes furosemide 40 mg daily as outpatient, have not restarted as of now -- Close I/O monitoring, cautious IVF use -- Follow-up TTE # Possible syncope -- Obtained collateral history from SO who at this time denies episodes of syncope, however fall approx 1 week ago was admittedly unwitnessed (presumed to have fallen on object in hallway), patient has endorsed orthostatic symptoms (dizziness upon standing from lying and sitting positions) -- TTE, monitor on tele -- Orthostatic at OSH # History of DVT 2019 -- On Eliquis most recently reportedly for a-fib, last dose 06/08 -- Repeat LE duplex to reassess status -- Discuss timing of initiation of DVT ppx with neurosurgery # HTN -- Have not yet restarted home lisinopril (40 mg daily) while re-initiating beta-blockade, reassessfor reintroduction daily -- SBP < 160- will utilize short-acting prns with hydralazine and labetalol to treat for now # HL -- Continue home pravastatin # Thrombocytopenia, mild -- Possibly nutritional, possibly secondary to long-standing alcohol use -- HIV and hepatitis panel non-reactive, folate 742, copper in process -- Monitor in CBC daily PULMONARY Resp Min: 11 Max: 27 SpO2 Min: 91 % Max: 100 % End Tidal CO2: N/A Ventilator settings: N/A CXR: No new Secretions: Coughs and swallows Meds: ??? Xopenex 1.25 mg every 6 hours ??? Artificial saliva prn # Acute pulmonary insufficiency secondary to altered sensorium -- ABGs 3/ ABGs reassuring and currently protecting airway -- Wheezing resolved - change Xopenex to prn -- Continue cough assist q 4 hours and HHFT -- Aggressive oral hygiene, artificial saliva for dry mucous membranes and dried oral secretions -- HOB elevated, WENCESLAO precautions -- Nasal trumpet prn if obstructing and hypoxic/requiring frequent suctioning RENAL Meds: ??? Terazosin 10 mg daily # BPH -- Continue home Terazosin (some documentation indicates this is also taken for HTN) -- Continue coombs for now # Oliguria -- s/p 500 mL LR bolus 06/12 and IVF with UOP approx 50-75 ml/2 hour overnight -- Renal function stable yesterday, however no BMP overnight - check BMP if oliguria worsens this AM -- Trouble shoot coombs catheter - flushes and bladder scan to rule out catheter obstruction -- Nursing reports did have 0600 UOP, just not charted - estimated to be 50-75 for 2 hours -- LR 500 bolus # Hypernatremia, mild -- Consider changing IVF to LR -- Monitor in BMP daily GI and ENDO Meds: ??? Colace 100 mg BID ??? Senna 8.8 mg BID ??? Protonix 40 mg daily ??? Bisacodyl prn ??? Zofran prn Diet: NPO Diet IV fluids: NS @ 75 ml/hr Flushes: N/A Last BM: Prior to admission # Nutrition/Dysphagia -- Continue MVI, folate, thiamine supplementation (also takes these at home per SO) -- NG for enteral access/eventual TF -- monitor for refeeding syndrome -- Formal [employer] eval -- Aspiration precautions # GERD -- Continue PPI INFECTION RELEVANT/MOST RECENT MICRO LAB DATA: COVID-19 RNA: (06/12) Not detected Urinalysis/Urine culture: UA (06/12) WBC 0-5, nitrite/LE negative Meds: ??? N/A Of note, has remote history in 2019 of intra-abdominal abscess which was ESBL E. Coli +. Monitor CBC daily. Yusuf-culture q 48 hours prn for T >/= 38.5 C or < 36 C. ACCESS Lines ?? PIVs ?? NG tube [place] ??? 06/12 VTE Prophylaxis Last Venous Doppler: 2019 + Right profunda DVT, repeat pending Prophylaxis: SCDs, discuss timing of chemoprophylaxis with NSGY CODE STATUS: Full Code [facility] Cassie Trent NP I reviewed and confirmed the history, physical exam, laboratory and radiographic data with the house staff as documented in the note from today. I reviewed and discussed my treatment plan with the ICU team and other medical/practice consultant staff as documented in the note. Critical Care Time: I have spent 36 minutes in full attendance with this critically ill patient making frequent reassessments and decisions regarding this patient's complex medical care. Critical care time was exclusive of separately billable procedures, treating other patients and teaching time. Critical care was necessary to treat or prevent imminent or life-threatening deterioration due to atrial fibrillation with RVR, severe hemorrhagic brain injury and requiring frequent titration of IC antiarrhythmics and serial bedside evaluation to avoid potentially catastrophic circulatory collapse. Ying Thompson MD Neurocritical Care Fellow Cosigned by Joce Rodriguez MD PhD at 06/14/2021 5:09 PM GREEN MARKETING ANALYST N MARKETING ANALYST N MARKETING ANALYST * Maribel Combs, PT - 06/13/2021 10:43 AM CST Physical Therapy Physical Therapy Initial Assessment NOTE: This is a summary note for the troy assessments completed during the evaluation session. For full details, review chart review for all flowsheets documented on by this physical therapist on thisdate. Vital signs documented in vital signs flowsheet. Assessment Assessment Problem List: Gait deviations, Decreased strength, Decreased range of motion, Decreased endurance, Impaired balance, Decreased mobility Problem List Comments: PT Diagnosis: mechanical fall with ICH/SAH as well as encephalopathy resultsin above listed activity deficits and impairments which prevent full participation in home and community Plan Plan Plan : Plan of care initiated, If this is the last note, consider this the discharge summary PT Recommendation and Plan Recommendation/Plan PT Recommendation/Plan: [facility] PT Recommendation/Plan Comments: SNF pending activity tolerance PT Frequency: 2-3x/wk Treatment/Interventions: Balance Training, Bed mobility, Endurance training, Functional activity, Functional transfer training, Gait training, Neuromuscular re-education, Stair training, Strengthening, Therapeutic activity, Therapeutic exercise, Transfer training PT - Next Appointment: 06/15/21 PT Evaluation Complete: Yes General Information General Chart Reviewed: Yes Session Type: Evaluation PT Received On: 06/13/21 Safe Environment: Arm Band Checked, Chair Alarm placed and activated, Call Light within Reach, Notified RN, Session Completed Bedside, Patient found in Supine (Pt left in the chair with chiar alarm engaged, all needs in reach) Subjective: Agreeable to Therapy Subjective Comment: hey there Family/Caregiver Present: No Physical Therapy-Patient Goal: unable to provide this Prior Function Prior Function Prior Function Comments: pt not able to provide this information on eval 2/2 impaired to cognition and alertnses Home Living Home Living Additional Comments: pt not able to provide this information on eval 2/2 impaired cognition and alertness Precautions Precautions Precautions: Aspiration, Fall risk, Obstructive sleep apnea, Seizure Pain Pain Assessment Pain Assessment: No/denies pain Cognition Cognition Arousal/Alertness: Lethargic, Inconsistent responses to stimuli Orientation : Oriented to person Following Commands: Unable to follow commands (able to follow a few commands with repetitionand tactile cues) Compliance/Behavior: (difficulty to engage 2/2 encephalopathy) 6 Clicks Basic Mobility - 6 Click How much difficulty does the patient have: Turning over in bed: A lot How much difficulty does the patient currently have: Sitting down and standing up from a chair witharms?: A lot How much difficulty does the patient have: Moving from lying on back to sitting on the side of the bed?: A lot How much difficulty does the patient have: Moving to and from a bed to a chair including wheelchair?: A lot How much help does the patient currently need: Walk in hospital room?: Total How much help from another person does the patient currently need: Climbing 3-5 steps with a railing?: Total Total 6 Click Score (range 6-24): 10 Score Interpretation: 10 Bed Mobility Bed Mobility Bed Mobility: No Transfers Transfers Transfer: No Balance Static Sitting Balance Static Sitting-Balance Support: No upper extremity supported, Feet supported, Posterior support, Lateral support Static Sitting-Sitting Surface: Chair Static Sitting-Level of Assistance: Maximum assistance Static Sitting-Comment/# of Minutes: able to engage at times to transition supported > unsupproeted sitting but unable to maintain without maxA of 1 Ambulation Ambulation Ambulation: No Stairs Stairs Stairs: No Curbs RLE Assessment RLE Assessment RLE Assessment: (unable to grade MMT but pt able to perform some AROM and PROM WFL) Strength RLE R Hip Flexion: 3-/5 R Knee Extension: 3/5 R Ankle Dorsiflexion: 3/5 LLE Assessment LLE Assessment LLE Assessment: (unable to grade MMT but pt able to perform some AROM and PROM WFL) Strength LLE L Hip Flexion: 3-/5 L Knee Extension: 3/5 Equipment Used Equipment Use Equipment Use Comments: no gait belt not used 2/2 no standing mobilty performed Other Comments Other Comments Other PT Comments: performed seated assessment. performed 8 trials of supported > unsupported sitting with attempts to engage core and place and hold upright unsupported sitting. Pt able to initate 2/8 trials PT Goals Multi-Disciplinary Problems (from Physical Therapy) Active Problems Problem: Mobility Start Date: 06/13/21 Goal Start Date Expected End Date End Date STG - Patient will ambulate 06/13/21 07/11/21 -- Goal Details: 100 ft wthi LRAD, [place] Problem: Transfers Start Date: 06/13/21 Goal Start Date Expected End Date End Date STG - Patient to transfer to and from sit to supine 06/13/21 06/27/21 -- Goal Details: [place] Goal Start Date Expected End Date End Date STG - Patient will transfer sit to and from stand 06/13/21 06/27/21 -- Goal Details: Maritza with LRAD Problem: Mobility Start Date: 06/13/21 Goal Start Date Expected End Date End Date LTG - Patient will demonstrate functional mobility with the following level of assist: 06/13/21 06/27/21 -- Goal Details: Cherelle with LRAD For questions, please review the treatment team and contact the PT or WELL CLEANER currently assigned to this patient. If a physical therapy clinician is not assigned to this patient, please call [phone]. N MARKETING ANALYST * Trinity Meehan OT - 06/13/2021 8:05 AM CST Occupational Therapy Occupational Therapy Initial Assessment NOTE:This is a summary note for the troy assessments completed during the evaluation session. For full details, review chart review for all flowsheets documented on by this Occupational Therapist on this date. Vital signs documented in vital signs flowsheet. Assessment Assessment Problem List: Decreased upper extremity strength, Decreased safe judgment during ADL, Decreased cognition, Decreased endurance, Visual deficit, Decreased balance, Decreased fine motor control, Decreased functional mobility, Decreased ADL independence, Decreased IADL independence, Decreased trunk control for functional activities, Poor/Decreased functional positioning Plan Plan Plan: If this is the last note, consider this the discharge summary, Plan of care initiated OT Recommendation and Plan Recommendation/Plan OT Recommendation: Inpatient Rehab Facility OT Frequency: 3-5x/wk Treatment/Interventions: ADL/IADL retraining, Balance Training, Bed mobility, Cognitive retraining,Compensatory technique education, Endurance training, Equipment eval/education, Functional activity, Functional mobility training, Functional transfer training, Neuromuscular re-education, Parent/caregiver training and education, Positioning, Sensorimotor skills, Strengthening, Therapeutic activity, Therapeutic exercise, Transfer training, Upper extremity motor function/functional skills, Visual motor/perceptual skills OT - Next Appointment: 06/15/21 OT Evaluation Complete: Yes General Information General Chart Reviewed: Yes Session Type: Evaluation OT Received On: 06/13/21 Safe Environment: Arm Band Checked, Chair Alarm placed and activated, Call Light within Reach, Notified RN, Patient found in Supine, Overbed Table within Reach, Bed in Lowest Position with Wheels locked (pt left seated in recliner in NAD, B mitts secured. RNs present) Subjective: (nods head yes when asked to participate) Family/Caregiver Present: No Occupational Therapy-Patient Goal: pt with limited attention to task, unable to participate in goalsetting Precautions Precautions Precautions: Fall risk, Seizure Home Living Home Living Additional Comments: pt with limited attention to task, unable to obtain Prior Function Prior Function Prior Function Comments: pt with limited attention to task, unable to obtain. Per medical record, pt ambulates without a device, lives at home. Activities of Daily Living Grooming Grooming: Where assessed: Chair Grooming: Level of assistance: Maximum Assist (mod for task; total for balance) Grooming: Assistance with: Reaching all areas of head/face, Sequencing, Attending to task, Increased time to complete (A for thoroughness) LE Dressing LE Dressing: Where assessed: Edge of bed LE Dressing: Level of assistance: Dependent LE Dressing: Assistance with: Thread RLE into pants, Thread LLE into pants, Don/doff L sock, Don/doff R sock, Pull up over hips, Fasteners Toilet Transfers Toilet Transfers Comments: simulated BSC transfer with bed to chair transfer Pain Pain Assessment Pain Assessment: N-PAT Cognition Cognition Overall Cognitive Status: Impaired Arousal/Alertness: Lethargic Attention Span: Controlled environment, Attends with cues to redirect, Distractability Orientation : Oriented to person Following Commands: (>75% of the time) Short Blessed Test Short Blessed Comments: pt with limited verbalizations, unable to complete Trails A & B ([place] Making Test) Unable to complete Trails A due to: Cognition Unable to complete Trails B due to: Cognition Unable to complete Trails B Verbal due to: Cognition 6 Clicks Daily Activity - 6 Clicks Putting on and taking off regular lower body clothing: Total Bathing: A lot Toileting: A lot Putting on and taking off upper body clothing: A Lot Personal Grooming: A lot Eating Meals: Total Total Score (range 6-24): 10 Score Interpretation: 10 Balance Static Sitting Balance Static Sitting-Balance Support: No upper extremity supported Static Sitting-Sitting Surface: Bed Static Sitting-Level of Assistance: Moderate assistance Static Standing Balance Static Standing-Balance Support: Bilateral upper extremity supported Static Standing-Level of Assistance: Maximum assistance Transfers Transfers Transfer: Yes Transfer 1 Transfer From 1: Sit Transfer Type 1: To and from Transfer to 1: Stand Technique 1: Sit to stand, Stand to sit Transfer Device 1: No device Transfer Level of Assistance 1: Maximum Assist Trials/Comments 1: assist for initiation, force production, balance Transfers 2 Transfer From 2: Bed Transfer Type 2: To Transfer to 2: Chair with arms Technique 2: Stand pivot Transfer Device 2: Hand held assist Transfer Level of Assistance 2: Maximum Assist (A of 2) Trials/Comments 2: assist for initiation, force production, balance Bed Mobility Bed Mobility 1 Bed Mobility From 1: Supine Bed Mobility Type 1: To Bed Mobility to 1: Short sit, Edge of bed Level of Assistance 1: Maximum Assist Bed Mobility Comments 1: assist to maneuver BLEs, elevate trunk, bring hips to EOB RUE Assessment RUE Assessment RUE Assessment: (assessment limited by impaired attention to task, spontaneous AROM observed, PROM WFL) LUE Assessment LUE Assessment LUE Assessment: (assessment limited by impaired attention to task, spontaneous AROM observed, PROM WFL) Other Comments OT Goals Multi-Disciplinary Problems (from Occupational Therapy) Active Problems Problem: Dressings Lower Extremities Start Date: 06/13/21 Goal Start Date Expected End Date End Date STG - Patient to complete lower body dressing with mod A 06/13/21 06/20/21 -- Problem: Grooming Start Date: 06/13/21 Goal Start Date Expected End Date End Date STG - Patient will complete grooming with mod A 06/13/21 06/20/21 -- Problem: Transfers Start Date: 06/13/21 Goal Start Date Expected End Date End Date STG - Patient will perform toilet transfer with min A to BSC 06/13/21 06/20/21 -- Problem: OT Misc Start Date: 06/13/21 Goal Start Date Expected End Date End Date OT LTG - Pt will complete ADLs with modified independence 06/13/21 07/21/21 -- N MARKETING ANALYST * Cassie Trent, GARIMA - 06/13/2021 8:00 AM CST Neuro Critical Care Progress Note Dx: Encephalopathy HPI: 71M HTN/HL, a-fib on Eliquis, HFrEF (45-50% EF 2020), COPD not on home O2, legally blind, hearing loss, Ccy p/w trace tSAH and IVH following a fall. Admitted OSH with altered LOC. Initial CT negbut subsequent MRI with tr SAH/IVH. Tx to [facility] NSGY service 06/11 where has remained encephalopathic. Medicine consulted for encephalopathy and felt airway was threatened, hence transfer to ICU 06/12. Interval Events: CT head stable. Routine extended EEG followed by cEEG for ongoing encephalopathy. High-dose thiamine started. HHFT placed, cough assist initiated. Mg and K repleted. RVR 150s on ICU admission, transiently improved with labetalol/metoprolol pushes but remained in RVR. Mg/K repleted.LR bolus 500 x 1 and started on IVF for oliguria. NG placed and enteral Metop started 25 q 6, titrated to 50 q 6 but RVR refractory to this. Amio loaded/infusion started overnight with rate control achieved. Overnight IVF increased from 50 ml to 75 ml/hr for borderline low UOP. Vitals Temp Min: 36 ??C (96.8 ??F) Max: 37 ??C (98.6 ??F) Pulse Min: 92 Max: 154 NIBP BP Min: 108/82 Max: 182/134 MAP (mmHg) Av.6 Min: 90 Max: 149 A-line No data recorded I/O: Intake/Output Summary (Last 24 hours) at 06/13/2021 07 Last data filed at 06/13/2021 0705 Gross per 24 hour Intake 2518.36 ml Output 550 ml Net 1968.36 ml Actually + 1865.7 mL per nursing documentation UOP: 550 mL documented (no 6 AM output charted but reportedly had 50-75 out) LABS Recent Labs Lab Units 06/12/21 1634 06/12/21 1331 06/12/21 1144 SODIUM mmol/L 147* 146* See Comment POTASSIUM PLASMA mmol/L 4.0 3.8 See Comment CHLORIDE mmol/L 108 111* See Comment CO2 mmol/L 27 25 See Comment ANIONGAP mmol/L 12 11 See Comment GLUCOSE mg/dL 106 85 See Comment BUN SERUM mg/dL 10 9 See Comment CREATININE mg/dL 0.81 0.74* See Comment CALCIUM mg/dL 8.8 8.0* See Comment MAGNESIUM mg/dL 2.5 2.9* See Comment PHOSPHORUS PLASMA mg/dL -- 3.7 See Comment Recent Labs Lab Units 06/12/21 1634 06/12/21 1331 06/12/21 1144 06/11/212028 WBC K/cumm 8.3 7.5 6.5 7.1 HEMATOCRIT % 41.4 39.4 37.5* 42.7 HEMOGLOBIN g/dL 14.2 13.5 12.5* 14.9 PLATELETS K/cumm 141* 126* 74* 137* APTT sec -- -- -- 31 INR -- -- -- 1.1 *06/12 1144 CBC is in error Recent Labs Lab Units 06/12/21 1331 06/12/21 1144 ALK PHOS Units/L 86 See Comment BILIRUBIN TOTAL mg/dL 0.7 See Comment TOTAL PROTEIN g/dL 5.5* See Comment ALBUMIN g/dL 3.0* See Comment ALT Units/L 11 See Comment AST Units/L 25 See Comment Recent Labs Lab Units 06/12/21 1144 06/12/21 0959 PH ART 7.47* 7.41 PCO2 ART mmHg 31* 38 PO2 ART mmHg 105 77* HCO3 ART (CALC) mmol/L 23 24 O2 SAT ART (NANI) % 98* 94 BASE EXC ART mmol/L 0 0 IMAGING (Most recent) NEURO IMAGING: CT (06/12/21 [facility]) IMPRESSION: Evolving small volume intraventricular hemorrhage and subarachnoid hemorrhage not as well visualized on the current exam. There is no evidence of interval bleed. PHYSICAL EXAM: HEENT: Mucous membranes dry, poor dentition. Sclera anicteric. Cardiac: Irregularly irregular. A-fib RVR on monitor but rate controlled. No M/R/G. Pulmonary: Even, unlabored respirations. Symmetric chest rise and fall. Coarse bilaterally. Abdomen: Rounded but non-distended in appearance, bowel sounds present, soft/non-tender to palpation. Skin: Warm and dry. NEURO EXAM Mental Status Sleepy, opens eyes briefly to stim but does not sustain eye opening. Intermittently follows simple commands (thumb, two fingers L > R and wiggles bilateral toes). Oriented to self and location [facility] but states month as May . More verbally interactive with examiner today. Cranial Nerves PERRL but irregularly shaped. Gaze dysconjugate. Does not participate with EOM this AM and resists to oculocephalic maneuver. No nystagmus appreciated. Mild nasolabial fold flattening on right. Severe dysarthria. + Spontaneous cough. Motor >AG all 4 but brisker on L: Follows in LUE/LLE. Localizes L more briskly than RUE. Withdraws BLEand intermittently distally 06/10. NEUROLOGICAL Meds: ??? Keppra 500 mg q 12 hours ??? Tylenol prn (x 1 dose/24 hours) # Traumatic brain injury w/tSAH/IVH in setting of fall and AC -- Continue Keppra for 7 days pending EEG report -- PT, OT, COTTAGE CHEESE MAKER consults # Encephalopathy - suspect multifactorial with alcohol withdrawal (OSH given librium), TBI, hospital admission/delirium, possible Wernicke's -- SO denies recent confusion however describes episode of self-limited dysarthria approx 2 weeks prior to admission, confusion after fall approx 1 week ago, and recent fall with loss of consciousness. Long-standing history of daily alcohol use, last drink presumably 3/3 -- Encephalopathy labs thus far unrevealing: TSH 0.8, Folate > 20, B12 742, B1 in process, RPR non-reactive, HIV non-reactive, hepatitis panel non-reactive -- Empiric MVI, thiamine, folate - high-dose thiamine for possible Wernicke's encephalopathy -- Follow-up cEEG to rule out subclinical seizures - dc later today if negative -- MRI with/without after EEG given focal exam findings -- Seizure precautions CARDIOVASCULAR and HEME Meds: ??? Metoprolol 50 mg every 6 hours ??? Amiodarone 1 mg/min ??? Pravastatin 40 mg daily ??? Hydralazine prn (x 0 doses/24 hours) ??? Labetalol prn (x 4 doses/24 hours) EKG: No new # Atrial fibrillation with RVR -- Continue home-dose equivalent BB - Metop 50 q 6 hours (home 100 mg BID) -- Continue Amiodarone gtt, tapers this AM to 0.5 mg/min then continue enteral to complete load (400 mg BID x 5 days, 200 mg QD thereafter) -- Monitor on tele; goal HR<120 -- Ensure K+ and Mg adequately repleted - Mg low overnight 1.7 --> give 4 g Mg Sulfate x 1 now -- Acute SAH/IVH currently precludes therapeutic anticoagulation (previously on Eliquis) # HFrEF EF 45% -- Takes furosemide 40 mg daily as outpatient, have not restarted as of now -- Close I/O monitoring, cautious IVF use -- Follow-up TTE # Possible syncope -- Obtained collateral history from SO who at this time denies episodes of syncope, however fall approx 1 week ago was admittedly unwitnessed (presumed to have fallen on object in hallway), patient has endorsed orthostatic symptoms (dizziness upon standing from lying and sitting positions) -- TTE, monitor on tele -- Orthostatic at OSH # History of DVT 2019 -- On Eliquis most recently reportedly for a-fib, last dose 3 -- Repeat LE duplex to reassess status -- Discuss timing of initiation of DVT ppx with neurosurgery # HTN -- Have not yet restarted home lisinopril (40 mg daily) while re-initiating beta-blockade, reassessfor reintroduction daily -- SBP < 160 and MAP < 110 per Neurosurgery - will utilize short-acting prns with hydralazineand labetalol to treat for now # HL -- Continue home pravastatin # Thrombocytopenia, mild -- Possibly nutritional, possibly secondary to long-standing alcohol use -- HIV and hepatitis panel non-reactive, folate 742, copper in process -- Monitor in CBC daily PULMONARY Resp Min: 12 Max: 27 SpO2 Min: 90 % Max: 100 % End Tidal CO2: N/A Ventilator settings: N/A CXR: No new Secretions: Coughs and swallows Meds: ??? Xopenex 1.25 mg every 6 hours ??? Artificial saliva prn # Acute pulmonary insufficiency secondary to altered sensorium -- ABGs 06/12 ABGs reassuring and currently protecting airway -- Wheezing resolved - change Xopenex to prn -- Continue cough assist q 4 hours and HHFT -- Aggressive oral hygiene, artificial saliva for dry mucous membranes and dried oral secretions -- HOB elevated, WENCESLAO precautions -- Nasal trumpet prn if obstructing and hypoxic/requiring frequent suctioning RENAL Meds: ??? Terazosin 10 mg daily # BPH -- Continue home Terazosin (some documentation indicates this is also taken for HTN) -- Continue coombs for now # Oliguria -- s/p 500 mL LR bolus 06/12 and IVF with UOP approx 50-75 ml/2 hour overnight -- Renal function stable yesterday, however no BMP overnight - check BMP if oliguria worsens this AM -- Trouble shoot coombs catheter - flushes and bladder scan to rule out catheter obstruction -- Nursing reports did have 0600 UOP, just not charted - estimated to be 50-75 for 2 hours -- Recheck BMP if ongoing oliguria # Hypernatremia, mild -- Consider changing IVF to LR if persists -- Monitor in BMP daily GI and ENDO Meds: ??? Colace 100 mg BID ??? Senna 8.8 mg BID ??? Protonix 40 mg daily ??? Bisacodyl prn ??? Zofran prn Diet: NPO Diet IV fluids: NS @ 75 ml/hr Flushes: N/A Last BM: Prior to admission # Nutrition/Dysphagia -- Continue MVI, folate, thiamine supplementation (also takes these at home per SO) -- NG for enteral access - start TF later today, monitor closely for refeeding syndrome -- RD c/s -- Formal COTTAGE [employer]KER eval -- Aspiration precautions # GERD -- Continue PPI INFECTION RELEVANT/MOST RECENT MICRO LAB DATA: COVID-19 RNA: (06/12) Not detected Urinalysis/Urine culture: UA (06/12) WBC 0-5, nitrite/LE negative Meds: ??? N/A Of note, has remote history in 2019 of intra-abdominal abscess which was ESBL E. Coli +. Monitor CBC daily. Yusuf-culture q 48 hours prn for T >/= 38.5 C or < 36 C. ACCESS Lines ?? PIVs ?? NG tube Coombs ??? 06/12 VTE Prophylaxis Last Venous Doppler: 2019 Right profunda DVT, repeat pending Prophylaxis: SCDs, discuss timing of chemoprophylaxis with NSGY (dosing will be 5000 u q 8 hours when ready) CODE STATUS: Full Code Disposition: 9400 [facility] Cosigned by Joce Rodriguez MD PhD at 06/14/2021 5:09 PM GREEN MARKETING ANALYST N MARKETING ANALYST N MARKETING ANALYST N MARKETING ANALYST * Clarence Soto MD PhD - 06/13/2021 6:52 AM CST Neurosurgery Daily Progress Note 06/13/2021 Hospital Course 06/11 Admitted. HCT with stable ventricular size, small IVH in occipital horns. 06/12: TTSDU, then TTICU for persistently depressed mental status. Repeat head CT stable. Metop for Afib w RVR. Started on high dose thiamine. EEG negative, planning for continuous. Objective Physical Exam: Attempts to open eyes to voice, does not regard, follows commands Oriented to name, dysarthric speech, not oriented to place or year PERRL, gaze conjugate, no cooperation with face or tongue Localizing uppers and withdrawing lowers Vitals: 24hr min/max vitals: Temp Min: 36 ??C (96.8 ??F) Max: 37 ??C (98.6 ??F) Pulse Min: 92 Max: 154 Resp Min: 12 Max: 27 SpO2 Min: 90 % Max: 100 % MAP (mmHg) Min: 90 Max: 149 Intake and output: I/O last 2 completed shifts: In: 2249.2 [I.V.:1549.2; IV Piggyback:700] Out: 350 [Urine:350] Medications: Scheduled Scheduled Medications Medication Dose Route Frequency ??? docusate (COLACE) 10 mg/mL oral liquid 100 mg 100 mg feeding tube BID ??? folic acid (FOLVITE) tablet 1 mg 1 mg feeding tube Daily ??? levalbuterol (XOPENEX) 1.25 mg/3 mL nebulizer solution 1.25 mg 1.25 mg nebulization Q6H MONET (RT) ??? levETIRAcetam (KEPPRA) 500 mg/100 mL in sodium chloride (premix) 500 mg 500 mg intravenous [id number] ??? metoprolol tartrate (LOPRESSOR) immediate release tablet 50 mg 50 mg feeding tube Q6H ??? prlgopbv-bwk-nibixvc gluconate (CENTRUM) 0.6 mg iron/mL oral liquid 15 mL 15 mL feeding tube Daily ??? pantoprazole (PROTONIX) 4 mg/mL injection 40 mg 40 mg intravenous Q24H MONET ??? pravastatin (PRAVACHOL) tablet 40 mg 40 mg feeding tube Daily ??? senna 1.76 mg/mL syrup 8.8 mg 8.8 mg feeding tube BID ??? sodium chloride 0.9% flush 0.5-20 mL 0.5-20 mL intra-catheter Q8H MONET ??? sodium chloride 0.9% flush 0.5-20 mL 0.5-20 mL intra-catheter Q8H MONET ??? terazosin (HYTRIN) capsule 10 mg 10 mg feeding tube Nightly ??? thiamine (VITAMIN B-1) 500 mg in sodium chloride 0.9% 100 mL IVPB 500 mg intravenous Q8H Followed by ??? [START ON 06/14/2021] thiamine (VITAMIN B-1) 250 mg in sodium chloride 0.9% 100 mL IVPB 250 mg intravenous Q24H MONET Followed by ??? [START ON 06/19/2021] thiamine (VITAMIN B1) tablet 100 mg 100 mg feeding tube Daily As needed PRN Medications Medication Dose Route Frequency Last Admin ??? acetaminophen (TYLENOL) tablet 650 mg 650 mg feeding tube Q4H PRN 650 mg at 06/13/21 0328 ??? artificial saliva (MOUTH KOTE) spray 2 application 2 application mouth/throat Q4H PRN ??? bisacodyL (DULCOLAX) suppository 10 mg 10 mg rectal Daily PRN ??? hydrALAZINE (APRESOLINE) injection 10 mg 10 mg intravenous Q30 Min PRN Or ??? labetaloL (NORMODYNE,TRANDATE) injection 10 mg 10 mg intravenous Q30 Min PRN 10 mg at 06/12/21 181 ??? ondansetron (ZOFRAN) injection 4 mg 4 mg intravenous Q6H PRN ??? sodium chloride 0.9% flush 0.5-20 mL 0.5-20 mL intra-catheter PRN ??? sodium chloride 0.9% flush 0.5-20 mL 0.5-20 mL intra-catheter PRN Labs: Lab Results Component Value Date SODIUM 147 (H) 06/12/2021 SODIUM 146 (H) 06/12/2021 SODIUM See Comment 06/12/2021 Lab Results Component Value Date GLUCOSE 106 06/12/2021 CALCIUM 8.8 06/12/2021 POTASSIUM 4.0 06/12/2021 CO2 27 06/12/2021 CHLORIDE 108 06/12/2021 BUNSER 10 06/12/2021 CREATININE 0.81 06/12/2021 Lab Results Component Value Date WBC 8.3 06/12/2021 WBC 7.5 06/12/2021 WBC 6.5 06/12/2021 HGB 14.2 06/12/2021 HGB 13.5 06/12/2021 HGB 12.5 (L) 06/12/2021 HCT 41.4 06/12/2021 HCT 39.4 06/12/2021 HCT 37.5 (L) 06/12/2021 LABPLAT 141 (L) 06/12/2021 LABPLAT 126 (L) 06/12/2021 LABPLAT 74 (L) 06/12/2021 Lab Results Component Value Date INR 1.1 06/11/2021 INR 1.1 07/13/2020 INR 1.6 (H) 02/21/2020 PT 12.5 06/11/2021 PT 12.3 07/13/2020 PT 17.9 (H) 02/21/2020 APTT 31 06/11/2021 APTT 80 (H) 02/20/2020 APTT 26 02/20/2020 No components found for: TROPONIN PT/OT assessment: Assessment/Plan Hospital Day: 3 Jania Redman is a 71 y.o. year old male who presented with tSAH and small IVH after MGLF. Plan Keppra 500 BID x7 days PT/OT, dispo planning CIWA protocol AMS workup F/u eeg Continue amio gtt for afib Consider bMRI if negative DVT prophylaxis: ok for medical ppx Responsible team (call resident in bold with questions) Vascular Note created by Clarence Soto MD PhD on 06/13/2021 at 6:53 AM. Cosigned by Seth Kiser MD at 06/14/2021 8:24 AM GREEN MARKETING ANALYST N MARKETING ANALYST N MARKETING ANALYST * Joce Rodriguez MD PhD - 06/12/2021 4:45 PM CST Neuro Critical Care Progress Note Dx: Encephalopathy HPI: 71M HTN/HL, a-fib on Eliquis, HFrEF (45-50% EF 2020), COPD not on home O2, legally blind, hearing loss, Ccy p/w trace tSAH and IVH following a fall. Admitted OSH with altered LOC. Initial CT negbut subsequent MRI with tr SAH/IVH. Tx to [facility] NSGY service 06/11 where has remained encephalopathic. Medicine consulted for encephalopathy and felt airway was threatened, hence transfer to ICU. Interval events: arrived to ICU in RVR 150s. Rx w/IV lopressor with hydral/labetelol for hypertension. Nasal trumpet removed for agitation. EEG started. CT repeated and stable. Vitals Temp Min: 36 ??C (96.8 ??F) Max: 37.6 ??C (99.7 ??F) Pulse Min: 54 Max: 154 NIBP BP Min: 116/95 Max: 182/134 MAP (mmHg) Av.8 Min: 81 Max: 149 A-line No data recorded I/O: Intake/Output Summary (Last 24 hours) at 06/12/2021 1645 Last data filed at 06/12/2021 1407 Gross per 24 hour Intake 2046.67 ml Output 150 ml Net 1896.67 ml LABS Recent Labs Lab Units 06/12/21 1331 06/12/21 1144 06/12/21 1111 06/12/21 1053 06/12/21 0412 06/11/212028 SODIUM mmol/L 146* See Comment -- -- -- 143 POTASSIUM PLASMA mmol/L 3.8 See Comment -- -- -- 3.8 CHLORIDE mmol/L 111* See Comment -- -- -- 106 CO2 mmol/L 25 See Comment -- -- -- 30 CO2 POC mmol/L -- -- -- 24 -- -- ANIONGAP mmol/L 11 See Comment -- -- -- 7 GLUCOSE mg/dL 85 See Comment -- -- -- 103 POC GLUCOSE MONITOR mg/dL -- -- 90 -- < > -- BUN SERUM mg/dL 9 See Comment -- -- -- 8 CREATININE mg/dL 0.74* See Comment -- -- -- 0.75* CALCIUM mg/dL 8.0* See Comment -- -- -- 9.2 MAGNESIUM mg/dL 2.9* See Comment -- -- -- -- PHOSPHORUS PLASMA mg/dL 3.7 See Comment -- -- -- -- < > = values in this interval not displayed. Recent Labs Lab Units 06/12/21 1331 06/12/21 1144 06/11/212028 WBC K/cumm 7.5 6.5 7.1 HEMATOCRIT % 39.4 37.5* 42.7 HEMOGLOBIN g/dL 13.5 12.5* 14.9 PLATELETS K/cumm 126* 74* 137* APTT sec -- -- 31 INR -- -- 1.1 *06/12 114 CBC is in error Recent Labs Lab Units 06/12/21 1331 06/12/21 1144 ALK PHOS Units/L 86 See Comment BILIRUBIN TOTAL mg/dL 0.7 See Comment TOTAL PROTEIN g/dL 5.5* See Comment ALBUMIN g/dL 3.0* See Comment ALT Units/L 11 See Comment AST Units/L 25 See Comment Recent Labs Lab Units 06/12/21 1144 06/12/21 0959 PH ART 7.47* 7.41 PCO2 ART mmHg 31* 38 PO2 ART mmHg 105 77* HCO3 ART (CALC) mmol/L 23 24 O2 SAT ART (NANI) % 98* 94 BASE EXC ART mmol/L 0 0 IMAGING (Most recent) NEURO IMAGING: MRI wo contrast (06/11/21 [facility]) Small amount of intraventricular hemorrhage layering in the bilateral occipital horns again noted. No evidence of acute infarcts. Small subcentimeter foci of intraparenchymal hemorrhage noted in the right medial frontal lobe, right temporal lobe. No mass effect or midline shift. Trace/minimal subarachnoid hemorrhage also noted.Findings are similar to same day head CT. CT (06/11/21 [facility]) Scattered subarachnoid hemorrhage and intraventricular hemorrhage and left parietal scalp hematoma.The constellation of findings are most suggestive of a traumatic etiology. The overall findings aremore conspicuous in today's examination in comparison to 06/08/2021. PHYSICAL EXAM: HEENT: Mucous membranes dry, poor dentition. Sclera anicteric. Cardiac: Irregularly irregular. A-fib RVR on monitor. No M/R/G. Pulmonary: Even, unlabored respirations. Symmetric chest rise and fall. Coarse and scattered expiratory wheezing bilateral anterior herrera. Abdomen: Rounded but non-distended in appearance, bowel sounds present, soft/non-tender to palpation. Skin: Warm and dry, ruborous color. NEURO EXAM Mental Status Sleepy but opens eyes open to loud voice, attends to voice but does follow simple commands in LUE (thumb, two fingers) with coaching. Oreinted to self. Cranial Nerves PERRL but irregularly shaped. Grossly full horizontal EOM. + Nystagmus. Face appears grossly symmetric. Severely dysarthric. + blinks, + spontaneous cough. Motor >AG all 4 but brisker on L: Follows in LUE/LLE. Localizes L more briskly than RUE. Withdraws BLE. NEUROLOGICAL Meds: ??? Keppra 500 mg BID ??? Tylenol prn # Traumatic brain injury w/tSAH/IVH in setting of fall and AC -- Continue Keppra for 7 days pending EEG -- PT, OT, COTTAGE CHEESE MAKER consults # Encephalopathy -- SO denies recent confusion however describes episode of self-limited dysarthria approx 2 weeks prior to admission, confusion after fall approx 1 week ago, and recent fall with loss of consciousness. Long-standing history of daily alcohol use, last drink presumably 3/3 -- Empiric MVI, thiamine, folate - consider high-dose thiamine for possible Wernicke's encephalopathy -- Extended EEG, consider cEEG if CT stable -- MRI after EEG given focal exam findings -- Seizure precautions -- Check prelim encephalopathy work-up: TSH, folate, B12, B1, RPR, HIV, hepatitis panel CARDIOVASCULAR and HEME Meds: ??? Metoprolol 50 q6 PO ??? Pravastatin 40 mg daily ??? Prn hydral and labetelol EK/7 A-fib RVR # Atrial fibrillation with RVR -- Contt home dose BB (max) -- Monitor on tele; goal HR<120 -- Ensure K+ and Mg adequately repleted - Mg low overnight 1.7 --> give 4 g Mg Sulfate x 1 now -- Acute SAH/IVH currently precludes therapeutic anticoagulation (previously on Eliquis) -- 500cc LR bolus now for poor UOP -- consider Amio if needed; avoid dilt 2/2 heart failure if able # HFrEF EF 45% -- Takes furosemide 40 mg daily as outpatient, have not restarted as of now -- Close I/O monitoring, cautious IVF use -- Follow-up TTE # Possible syncope -- Obtained collateral history from SO who at this time denies episodes of syncope, however fall approx 1 week ago was admittedly unwitnessed (presumed to have fallen on object in hallway), patient has endorsed orthostatic symptoms (dizziness upon standing from lying and sitting positions) -- TTE, monitor on tele -- Orthostatic at OSH # History of DVT 2019 -- On Eliquis most recently reportedly for a-fib, last dose 06/08 -- Repeat LE duplex to reassess status -- Discuss timing of initiation of DVT ppx with neurosurgery # HTN -- Have not yet restarted home lisinopril (40 mg daily) while re-initiating beta-blockade, reassessfor reintroduction daily -- SBP < 160 and MAP < 110 per Neurosurgery - will utilize short-acting prns with hydralazineand labetalol to treat for now # HL -- Continue home pravastatin # Thrombocytopenia, mild -- Possibly nutritional, possibly secondary to long-standing alcohol use -- Check copper, folate, HIV, hepatitis panel PULMONARY Resp Min: 16 Max: 27 SpO2 Min: 90 % Max: 100 % End Tidal CO2: N/A Ventilator settings: N/A CXR: 06/11 There is no focal consolidation, pleural effusion, or pneumothorax. Cardiomediastinal silhouette is unchanged with atherosclerosis in the aorta. Secretions: Coughs and swallows Meds: ??? N/A # Wheezing, chart h/o COPD # Acute pulmonary insufficiency secondary to altered sensorium; ABG here reassuring and LOC sufficient to protect airway currently -- Start Xopenex nebs scheduled -- RT consult for assessment for cough assist -- Place [facility] for humidification of dry oral mucosa -- HOB elevated, WENCESLAO precautions RENAL Meds: ??? N/A # Hypomagnesemia -- Replete with 4 gm x 1 now given RVR -- Check Mg daily and replete thereafter per NNICU protocol # BPH -- Start home Terazosin (some documentation indicates this is also taken for HTN) -- Condom cath with only 100 mL UOP documented thus far since last night admission -- Place coombs for close I/O monitoring at this time and reassess daily for removal # poor UOP -- 500cc LR now # mild hypernatremia -- will monitor with volume GI and ENDO Meds: ??? Colace 100 mg BID ??? Senna 8.8 mg BID ? ? Pepcid --> change to PPI (takes pantoprazole at home) ??? Bisacodyl prn ??? Zofran prn ??? Tigan prn Diet: NPO Diet IV fluids: NS @ 100 ml/hr Flushes: N/A Last BM: Prior to admission # Nutrition/Dysphagia -- Continue MVI, folate, thiamine supplementation (also takes these at home per SO) -- Place NG tube for enteral access for meds/future feeds -- Will need formal [employer] eval when appropriate from mental status perspective -- keep NPO tonight; at risk of requiring intubation # GERD -- Continue PPI INFECTION RELEVANT/MOST RECENT MICRO LAB DATA: Blood cultures: N/A Respiratory cultures: N/A Urinalysis/Urine culture: UA macro 06/11 negative nitrite/LE Meds: ??? N/A Afebrile and without leukocytosis. No reported prodrome of fever or chills, recent sick contacts orillness. Some vague report of generalized body aches described by SO ongoing for approx 2 weeks. Recheck CBC now. Check COVID testing (has reportedly received two doses of Pfizer but no booster, no recent known COVID exposures). Of note, has remote history in 2019 of intra-abdominal abscess which was ESBL E. Coli +. ACCESS Lines ?? PIVs Coombs ??? Placing now VTE Prophylaxis Last Venous Doppler: 2019 + Right profunda DVT, repeat pending Prophylaxis: SCDs, discuss timing of chemoprophylaxis with NSGY CODE STATUS: Full Code Disposition: 9[address] SHILPA Trent NP I reviewed and confirmed the history, physical exam, laboratory and radiographic data with the house staff as documented in the note from today. I reviewed and discussed my treatment plan with the ICU team and other medical/practice consultant staff as documented in the note. Critical Care Time: I have spent 34 minutes in full attendance with this critically ill patient making frequent reassessments and decisions regarding this patient's complex medical care. Critical care time was exclusive of separately billable procedures, treating other patients and teaching time. Critical care was necessary to treat or prevent imminent or life-threatening deterioration due to severe hemorrhagic brain injury and Afib with rapid ventricular response requiring frequent titrationof IC antiarrhythmics and serial bedside evaluation to avoid potentially catastrophic circulatory co llapse. Joce Rodriguez M.D., Ph.D. N MARKETING ANALYST * Mark Early TEXTILE MACHINE MAINTENANCE MECHANIC - 06/12/2021 11:19 AM CST Transferred patient to step down unit at 7 am. Notified by RN, patient is very lethargic and not waking up for neuro exams. TEXTILE MACHINE MAINTENANCE MECHANIC went to assess patient. Exam stable from morning rounds. Only OE to painful stimulation. Patient not able to stay awake. A/Ox1, dysarthric speech. Vital signs stable. Consulted medicine for AMS and syncope/cardiac w/up. Called by medicine at 1045, recommended patient transfer to ICU. ABG sent. Called ICU triage fellow for ICU transfer . Report given to ICU TEXTILE MACHINE MAINTENANCE MECHANIC. N MARKETING ANALYST * Emerita Medina OT - 06/12/2021 10:53 AM CST 06/12/21 1053 General OT Missed Visit Reason Change in medical status (transferred to SDU) N MARKETING ANALYST * Vy Marin RN - 06/12/2021 10:15 AM CST Patient lethargic on neuro exam, TEXTILE MACHINE MAINTENANCE MECHANIC called to bedside for assessment. ABG ordered and obtained - sent to lab N MARKETING ANALYST * Queta Rios, PT - 06/12/2021 8:57 AM CST Physical Therapy 06/12/21 0856 General PT Missed Visit Reason MD/RN Hold (transferring to SDU due to being difficult to arouse) N MARKETING ANALYST * Vy Kimball RN - 06/12/2021 8:24 AM CST Assessment of patient???s baseline is established at the beginning of the shift in flowsheets. Patient reassessed per order, unexpected findings and/or deviations from baseline are captured in flowsheets. Frequent safety checks and comfort rounds provided. Orders and/or nursing care completed as indicated. Patient monitored for response to interventions and treatments as documented in flowsheets.. Plan of care discussed with patient/parts sales representative, including as it relates to Active Problems: No Active Problems: There are no active problems currently on the Problem List. Please update the Problem List and refresh. Patient not progressing. Clinical [place] the [place] [id number]. Education provided includes Discharge Planning, Fall Prevention, Isolation Precautions, Pain Management and Skin Breakdown Prevention/Treatment. Patient and/or parts sales representative No evidence of learning. Will continue to monitor. N MARKETING ANALYST * Guillermina Victor MD - 06/12/2021 6:05 AM CST Neurosurgery Daily Progress Note 06/12/2021 Hospital Course 06/11 Admitted. HCT with stable ventricular size, small IVH in occipital horns. Objective Physical Exam: Attempts to open eyes to voice, does not regard, follows commands Oriented to name, dysarthric speech, not oriented to place or year PERRL, gaze conjugate, ?L facial at rest though does not participate in facial movements, no tongueprotrusion LUE and LLE 4+/5 RUE and RLE 4/5 Vitals: 24hr min/max vitals: Temp Min: 36.4 ??C (97.5 ??F) Max: 37.6 ??C (99.7 ??F) Pulse Min: 54 Max: 116 Resp Min: 16 Max: 18 SpO2 Min: 100 % Max: 100 % MAP (mmHg) Min: 81 Max: 122 Intake and output: No intake/output data recorded. Medications: Scheduled Scheduled Medications Medication Dose Route Frequency ??? docusate sodium (COLACE) capsule 100 mg 100 mg oral BID Or ??? docusate (COLACE) 10 mg/mL oral liquid 100 mg 100 mg feeding tube BID ??? famotidine (PEPCID) tablet 20 mg 20 mg oral BID Or ??? famotidine (PEPCID) 20 mg/10 mL in sterile water (premix) 20 mg 20 mg intravenous BID ??? levETIRAcetam (KEPPRA) 500 mg/100 mL in sodium chloride (premix) 500 mg 500 mg intravenous [id number] ??? metoprolol (LOPRESSOR) injection 5 mg 5 mg intravenous Q6H MONET ??? pravastatin (PRAVACHOL) tablet 40 mg 40 mg oral Daily ??? senna (SENOKOT) tablet 1 tablet 1 tablet oral BID Or ??? senna 1.76 mg/mL syrup 8.8 mg 8.8 mg feeding tube BID ??? sodium chloride 0.9% flush 0.5-20 mL 0.5-20 mL intra-catheter Q8H MONET ??? sodium chloride 0.9% flush 0.5-20 mL 0.5-20 mL intra-catheter Q8H MONET As needed PRN Medications Medication Dose Route Frequency Last Admin ??? acetaminophen (TYLENOL) tablet 650 mg 650 mg oral Q4H PRN ??? bisacodyL (DULCOLAX) suppository 10 mg 10 mg rectal Daily PRN ??? bisacodyl EC (DULCOLAX EC) tablet 10 mg 10 mg oral Daily PRN ??? LORazepam (ATIVAN) tablet 1 mg 1 mg oral Q4H PRN Or ??? LORazepam (ATIVAN) tablet 1 mg 1 mg oral Q2H PRN Or ??? LORazepam (ATIVAN) injection 1 mg 1 mg intravenous Q1H PRN Or ??? LORazepam (ATIVAN) injection 1 mg 1 mg intramuscular Q1H PRN Or ??? LORazepam (ATIVAN) injection 2 mg 2 mg intravenous Q1H PRN Or ??? LORazepam (ATIVAN) injection 2 mg 2 mg intramuscular Q1H PRN 2 mg at 06/12/21 0240 ??? ondansetron ODT (ZOFRAN-ODT) disintegrating tablet 4 mg 4 mg oral Q6H PRN Or ??? ondansetron (ZOFRAN) injection 4 mg 4 mg intravenous Q6H PRN ??? polyethylene glycol (MIRALAX) packet 17 g 17 g oral Daily PRN ??? sodium chloride 0.9% flush 0.5-20 mL 0.5-20 mL intra-catheter PRN ??? sodium chloride 0.9% flush 0.5-20 mL 0.5-20 mL intra-catheter PRN Labs: Lab Results Component Value Date SODIUM 143 06/11/2021 SODIUM 136 07/14/2020 SODIUM 139 07/14/2020 Lab Results Component Value Date GLUCOSE 88 06/12/2021 CALCIUM 9.2 06/11/2021 POTASSIUM 3.8 06/11/2021 CO2 30 06/11/2021 CHLORIDE 106 06/11/2021 BUNSER 8 06/11/2021 CREATININE 0.75 (L) 06/11/2021 Lab Results Component Value Date WBC 7.1 06/11/2021 WBC 9.2 07/14/2020 WBC 10.0 (H) 07/14/2020 HGB 14.9 06/11/2021 HGB 12.6 (L) 07/14/2020 HGB 13.7 07/14/2020 HCT 42.7 06/11/2021 HCT 36.5 (L) 07/14/2020 HCT 39.3 07/14/2020 LABPLAT 137 (L) 06/11/2021 LABPLAT 141 (L) 07/14/2020 LABPLAT 148 (L) 07/14/2020 Lab Results Component Value Date INR 1.1 06/11/2021 INR 1.1 07/13/2020 INR 1.6 (H) 02/21/2020 PT 12.5 06/11/2021 PT 12.3 07/13/2020 PT 17.9 (H) 02/21/2020 APTT 31 06/11/2021 APTT 80 (H) 02/20/2020 APTT 26 02/20/2020 No components found for: TROPONIN PT/OT assessment: Assessment/Plan Hospital Day: 2 Jania Redman is a 71 y.o. year old male who presented with tSAH and small IVH after MGLF. Plan Keppra 500 BID x7 days PT/OT, dispo planning [facility] protocol DVT prophylaxis: medical ppx contraindicated Responsible team (call resident in bold with questions) Vascular Note created by Guillermina Victor MD on 06/12/2021 at 6:05 AM. Cosigned by Seth Kiser MD at 06/14/2021 8:24 AM GREEN MARKETING ANALYST N MARKETING ANALYST N MARKETING ANALYST documented in this encounter H&P Notes * Cassie Trent NP - 06/12/2021 11:26 AM CST Neuro Critical Care Admission H&P ICU Admission Diagnosis: Encephalopathy HPI: History obtained via chart review, discussion with neurosurgery service, and interview with patient's significant other, Raine. Records from [facility] are limited, only H&P in paper chart. 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 In speaking with his he ambulates without a cane or walker and has a steady gait but impaired vision. Does endorse dizziness with standing which has been present for months, recent report of approx 2 weeks generalized myalgias and poor appetite but otherwise denies any fever, chills, nausea, vomiting or new diarrhea (has chronic diarrhea per her report). Approx 2 weeks ago didhave an episode in the evening of slurred speech which had resolved by the morning when patient awoke. Otherwise he fell approx 1 week ago from standing. This fall was unwitnessed but he had been ambulating down the hallway, reportedly lost his balance after bumping into something and fell down. No reported LOC and reportedly did no strike head but landed on knee with abrasion. Raine did say that he was confused and believed himself to be in the bedroom and decided to sleep in the hallway forpart of the night despite her repeatedly informing him that he was in fact in the hallway. She denies any other episodes of confusion. On 06/08 he was reaching overhead for something in a closet and lost his balance, falling and striking his head on a wine cooler and lost consciousness which promptedher to call EMS. He was taken to [facility] for evaluation and admitted. Documentation is limited as currently only an H&P is available for review. It appears he was sleepy but arousable, however did not sustain wakefulness on exam and was documented as being lethargic/obtunded although 5/[address] read as negative and he was admitted overnight 06/08-06/09 for further evaluation and treatment of possible syncopal episodes. There was reported involuntary movements and nystagmus for which he was loaded with Keppra and planned for EEG, the course of this is unclear. He h ad reportedly been started on CIWA protocol. An MRI later revealed SAH, IVH, small IPH for which hewas ultimately transferred to [facility] under the neurosurgerical service the evening of 06/11. He was continued on alcohol withdrawal protocol from OSH. Overnight 06/11-06/12 not following commands and somnolent, possibly worse following Ativan administration for high CIWA score (15, scoring for disorientation and poor eye contact which was reportedly baseline on admission). Transferred from floor to stepdown unit this AM for closer observation and NSGY consulted medicine service for assistance with syncope work-up and management of multiple comorbidities. Ongoing somnolence/lethargy throughout this morning. On Medicine consult eval this morning concern for potential for respiratory decompensation prompting nasal trumpet placement and POCT ABG 7.43/82/24. Transferred to 9400 ICU for closer monitoring. In further discussions with Neurosurgery service, there has been no acute change in neurologic exam but rather ongoing concerns for his degree of encephalopathy and altered sensorium. Will call [facility] records. Past Medical History: Diagnosis Date ??? Acute cholecystitis ??? Alcohol use ??? Anxiety ??? Atrial fibrillation (CMS/HCC) (HCC) ??? Blind legally blind ??? BPH (benign prostatic hyperplasia) ??? CHF [...] THROUGH EXISTING CATHETER N/A 02/04/2020 ??? VASECTOMY Social History Tobacco Use ??? Smoking status: Current Every Day Smoker Packs/day: 1.00 Types: Cigarettes Start date: 1965 ??? Smokeless tobacco: Never Used Substance Use Topics ??? Alcohol use: Yes Comment: limited Family History Problem Relation Age of Onset ??? Lung cancer Father ??? Anesthesia problems Neg Hx Allergies Allergen Reactions ??? Penicillins Hives Medications Prior to Admission Medication Sig Dispense Refill Last Dose ??? apixaban (ELIQUIS) 5 mg tablet Take 1 tablet (5 mg total) by mouth every 12 (twelve) hours (Patient taking differently: Take 5 mg by mouth every 12 (twelve) hours Last dose 07/08/20) 60 tablet 0 ??? cholecalciferol (VITAMIN D-3) 5,000 unit tablet Take 5,000 Units by mouth every morning ??? folic acid (FOLVITE) 1 mg tablet Take 1 tablet (1 mg total) by mouth daily (Patient taking differently: Take 1 mg by mouth every morning ) 30 tablet 0 ??? furosemide (LASIX) 40 mg tablet Take 1 tablet (40 mg total) by mouth 2 (two) times a day (Patient taking differently: Take 40 mg by mouth daily ) 60 tablet 11 ??? lisinopriL (PRINIVIL,ZESTRIL) 40 mg tablet Take 1 tablet (40 mg total) by mouth daily (Patient taking differently: Take 40 mg by mouth every morning ) 30 tablet 11 ??? metoprolol (LOPRESSOR) 100 mg tablet Take 1 tablet (100 mg total) by mouth 2 (two) times a day 180 tablet 3 ??? multivit,tx with iron,minerals (THERA-M ORAL) Take 1 tablet by mouth every morning ??? pantoprazole DR (PROTONIX) 40 mg EC tablet Take 1 tablet (40 mg total) by mouth daily (Patient taking differently: Take 40 mg by mouth every morning ) 30 tablet 11 ??? pravastatin (PRAVACHOL) 40 mg tablet Take 40 mg by mouth daily ??? terazosin (HYTRIN) 10 mg capsule Take 1 capsule (10 mg total) by mouth nightly (Patient taking differently: Take 10 mg by mouth nightly ) 30 capsule 0 ??? thiamine (VITAMIN B1) 100 mg tablet Take 100 mg by mouth every morning Confirmed medication list with significant other Review of Systems: + Dizziness with standing approx several months, + myalgias x approx 2 weeks, + falls, + dizziness upon standing Vitals 24hr min/max vitals: Temp Min: 36.4 ??C (97.5 ??F) Max: 37.6 ??C (99.7 ??F) Pulse Min: 54 Max: 129 NIBP BP Min: 120/71 Max: 171/139 MAP (mmHg) Av.1 Min: 81 Max: 149 A-line No data recorded I/O: Intake/Output Summary (Last 24 hours) at 06/12/2021 1126 Last data filed at 06/12/2021 0600 Gross per 24 hour Intake 1046.67 ml Output 100 ml Net 946.67 ml LABS Recent Labs Lab Units 06/12/21 1111 06/12/21 1053 06/12/21 0412 06/11/212028 SODIUM mmol/L -- -- -- 143 POTASSIUM PLASMA mmol/L -- -- -- 3.8 CHLORIDE mmol/L -- -- -- 106 CO2 mmol/L -- -- -- 30 CO2 POC mmol/L -- 24 -- -- ANIONGAP mmol/L -- -- -- 7 GLUCOSE mg/dL -- -- -- 103 POC GLUCOSE MONITOR mg/dL 90 -- 88 -- BUN SERUM mg/dL -- -- -- 8 CREATININE mg/dL -- -- -- 0.75* CALCIUM mg/dL -- -- -- 9.2 Recent Labs Lab Units 06/11/212028 WBC K/cumm 7.1 HEMATOCRIT % 42.7 HEMOGLOBIN g/dL 14.9 PLATELETS K/cumm 137* APTT sec 31 INR 1.1 Recent Labs Lab Units 06/12/21 0959 PH ART 7.41 PCO2 ART mmHg 38 PO2 ART mmHg 77* HCO3 ART (CALC) mmol/L 24 O2 SAT ART (NANI) % 94 BASE EXC ART mmol/L 0 IMAGING (Most recent) NEURO IMAGING: MRI wo contrast (06/11/21 [facility]) IMPRESSION: Small amount of intraventricular hemorrhage layering in the bilateral occipital horns again noted. No evidence of acute infarcts. Small subcentimeter foci of intraparenchymal hemorrhage noted in the right medial frontal lobe, right temporal lobe. No mass effect or midline shift. Trace/minimal subarachnoid hemorrhage also noted.Findings are similar to same day head CT. CT (06/11/21 [facility]) FINDINGS: ?? Topogram demonstrates no lytic lesions or fractures. There is right frontal hemorrhagic contusion. There are scattered subarachnoid hemorrhage, which appears increased in conspicuity in comparison to06/08/2021) and the left frontal lobe and right posterior temporal lobe. There is also layering intraventricular hemorrhage within the occipital horns. There is intracranial atherosclerotic calcifications. There is cerebral volume loss with expected dilatation of the ventricles. There is scalp hematoma in the left parietal scalp. No mass effect or midline shift is present. The yi-white matter differentiation is normal. Bilateral lens replacement. The visualized portions of the mastoids are normal. The visualized portions of the paranasal sinuses are normal. No fractures are identified. ?? IMPRESSION: Scattered subarachnoid hemorrhage and intraventricular hemorrhage and left parietal scalp hematoma.The constellation of findings are most suggestive of a traumatic etiology. The overall findings aremore conspicuous in today's examination in comparison to 06/08/2021. PHYSICAL EXAM: HEENT: Mucous membranes dry, poor dentition. Sclera anicteric. Cardiac: Irregularly irregular. A-fib RVR on monitor. No M/R/G. Pulmonary: Even, unlabored respirations. Symmetric chest rise and fall. Coarse and scattered expiratory wheezing bilateral anterior herrera. Abdomen: Rounded but non-distended in appearance, bowel sounds present, soft/non-tender to palpation. Skin: Warm and dry, ruborous color. NEURO EXAM Mental Status Sleepy but opens eyes open to loud voice, does not regard but does follow simple commands in LUE (thumb, two fingers) with coaching. Oreinted to self. Cranial Nerves PERRL but irregularly shaped. Grossly full horizontal EOM. + Nystagmus. Face appears grossly symmetric. Severely dysarthric. + blinks, + spontaneous cough. Motor Follows in LUE/LLE. Localizes L more briskly than RUE. Withdraws BLE. NEUROLOGICAL Meds: ??? Keppra 500 mg BID ??? Tylenol prn # Traumatic brain injury -- In setting of fall and anticoagulation -- Continue Keppra for 7 days for seizure prophylaxis unless having seizures, then will continue onKeppra -- Repeat CT now to ensure stable hemorrhage -- PT, OT, [employer] consults # Encephalopathy -- SO denies recent confusion however describes episode of self-limited dysarthria approx 2 weeks prior to admission, confusion after fall approx 1 week ago, and recent fall with loss of consciousness. Long-standing history of daily alcohol use, last drink presumably 06/08 -- UDS 06/08/21 negative, ethanol 101 from OSH -- Empiric MVI, thiamine, folate - consider high-dose thiamine for possible Wernicke's encephalopathy -- Repeat CT now to ensure stable intracranial hemorrhage and no interval development of hydrocephalus -- Extended EEG, consider cEEG if CT stable -- Consider MRI -- Seizure precautions -- Check prelim encephalopathy work-up: TSH, folate, B12, B1, RPR, HIV, hepatitis panel CARDIOVASCULAR and HEME Meds: ??? Metoprolol 5 mg IV q 6 hours ??? Pravastatin 40 mg daily EK/7 A-fib RVR # Atrial fibrillation with RVR -- Currently on Metop 5 mg every 6 hours while no enteral access (home dose Metoprolol tartrate 100mg BID) -- EKG with A-fib with RVR 148 now - will assess response after labetalol -- Start Metop 25 mg q 6 hours per tube once enteral access established - can titrate to home-dose equivalent of 50 mg q 6 hours IR if tolerating well -- Monitor on tele -- Ensure K+ and Mg adequately repleted - Mg low overnight 1.7 --> give 4 g Mg Sulfate x 1 now -- Acute SAH/IVH currently precludes therapeutic anticoagulation (previously on Eliquis) # HFrEF -- Per [place] visit [place] [place] [facility] [place] 01/25/21 SPECT study in August with an ejection fraction 38% no ischemia and subsequent ECHO in August 2020 with mild LV dysfunction, ejection fraction 45%, mild RV dysfunction no significant valvular disease -- Takes furosemide 40 mg daily as outpatient, have not restarted as of now -- Close I/O monitoring, cautious IVF use -- Follow-up TTE # Possible syncope -- Obtained collateral history from SO who at this time denies episodes of syncope, however fall approx 1 week ago was admittedly unwitnessed (presumed to have fallen on object in hallway), patient has endorsed orthostatic symptoms (dizziness upon standing from lying and sitting positions) -- TTE, monitor on tele -- Orthostatics when able # History of deep venous thrombosis -- LE venous duplex 02/20/20 with acute right profunda femoral vein DVT -- On Eliquis most recently reportedly for a-fib, last dose 06/08 -- Repeat LE duplex to reassess status -- Discuss timing of initiation of DVT ppx with neurosurgery # Hypertension -- Have not yet restarted home lisinopril (40 mg daily) while re-initiating beta-blockade, reassessfor reintroduction daily -- SBP < 160 and MAP < 110 per Neurosurgery - will utilize short-acting prns with hydralazineand labetalol to treat for now # Hyperlipidemia -- Continue pravastatin # Thrombocytopenia -- Possibly nutritional, possibly secondary to long-standing alcohol use -- Check copper, folate, HIV, hepatitis panel PULMONARY Resp Min: 16 Max: 22 SpO2 Min: 95 % Max: 100 % End Tidal CO2: N/A Ventilator settings: N/A CXR: 06/11 There is no focal consolidation, pleural effusion, or pneumothorax. Cardiomediastinal silhouette is unchanged with atherosclerosis in the aorta. Secretions: Coughs and swallows Meds: ??? N/A # Wheezing, suspected COPD # Acute pulmonary insufficiency secondary to altered sensorium -- Nasal trumpet placed this AM per medicine team ? Obstruction -- Recheck ABG -- Start Xopenex nebs scheduled -- RT consult for assessment for cough assist -- Place HHFT for humidification of dry oral mucosa -- HOB elevated, WENCESLAO precautions RENAL Meds: ??? N/A # Hypomagnesemia -- Replete with 4 gm x 1 now given RVR -- Check Mg daily and replete thereafter per ICU protocol # BPH -- Start home Terazosin (some documentation indicates this is also taken for HTN) -- Condom cath with only 100 mL UOP documented thus far since last night admission -- Place coombs for close I/O monitoring at this time and reassess daily for removal GI and ENDO Meds: ??? Colace 100 mg BID ??? Senna 8.8 mg BID ? ? Pepcid --> change to PPI (takes pantoprazole at home) ??? Bisacodyl prn ??? Zofran prn ??? Tigan prn Diet: NPO Diet IV fluids: NS @ 100 ml/hr Flushes: N/A Last BM: Prior to admission # Nutrition/Dysphagia -- Continue MVI, folate, thiamine supplementation (also takes these at home per SO) -- Place NG tube for enteral access for meds/future feeds -- Will need formal [employer] eval when appropriate from mental status perspective # GERD -- Continue PPI INFECTION RELEVANT/MOST RECENT MICRO LAB DATA: Blood cultures: N/A Respiratory cultures: N/A Urinalysis/Urine culture: UA macro 06/11 negative nitrite/LE Meds: ??? N/A Afebrile and without leukocytosis. No reported prodrome of fever or chills, recent sick contacts orillness. Some vague report of generalized body aches described by SO ongoing for approx 2 weeks. Recheck CBC now. Check COVID testing (has reportedly received two doses of Pfizer but no booster, no recent known COVID exposures). Of note, has remote history in 2019 of intra-abdominal abscess which was ESBL E. Coli +. ACCESS Lines ?? PIVs Coombs ??? Placing now VTE Prophylaxis Last Venous Doppler: 2019 + Right profunda DVT, repeat pending Prophylaxis: SCDs, discuss timing of chemoprophylaxis with NSGY CODE STATUS: Full Code Disposition: 9400 NNICU Cassie Trent NP Cosigned by Joce Rodriguez MD PhD at 06/14/2021 5:09 PM GREEN MARKETING ANALYST N MARKETING ANALYST N MARKETING ANALYST N MARKETING ANALYST * Belinda Shaffer MD PhD - 06/11/2021 7:15 PM CST Neurosurgery History and Physical Patient: Jania eRdman CSN: [id number] : 1950 Admission date: 06/11/2021 Admitting attending: Dr. Kiser Chief complaint: Mechanical ground level fall History of present illness: Jania Redman is a 71 y.o. year-old male on Eliquis (last 06/08) with past medical history of hypertension, hyperlipidemia, CHF, COPD, atrial fibrillation, legally blind, and alcohol use who presented after a fall to an outside hospital who was subsequently transferred to our service for further evaluation management. Briefly the patient had a fall with loss of consciousness and hit his head 3 days ago. Per outside hospital records the patient had 3 homemade Aby is prior to the fall. A noncontrast head CT was obtained which was negative for intracranial hemorrhage. Brain MRI acquired at thetime demonstrated small volume intraventricular hemorrhage in the occipital horns. On arrival the patient is oriented to self only. He denies any headache, nausea, or vomiting. Review of systems: A full review of systems was completed and was negative unless otherwise stated in the HPI. Past medical/surgical history: 1. Hypertension 2. Hyperlipidemia 3. CHF 4. COPD 5. Atrial fibrillation 6. Legally blind 7. Ethanol use Allergies: Allergies Allergen Reactions ??? Penicillins Hives Medications: HOME MEDICATIONS : acetaminophen 500 mg capsule apixaban (ELIQUIS) 5 mg tablet cholecalciferol (VITAMIN D-3) 5,000 unit tablet folic acid (FOLVITE) 1 mg tablet furosemide (LASIX) 40 mg tablet ibuprofen (ibuprofen) 200 mg tab/cap levalbuterol (XOPENEX) 1.25 mg/3 mL nebulizer solution lisinopriL (PRINIVIL,ZESTRIL) 40 mg tablet magnesium oxide (MAG-OX) 400 mg (241.3 mg elemental magnesium) tablet metoprolol (LOPRESSOR) 100 mg tablet multivit,tx with iron,minerals (THERA-M ORAL) ondansetron ODT (ZOFRAN-ODT) [address]integr[address] tablet pantoprazole DR (PROTONIX) 40 mg EC tablet pravastatin (PRAVACHOL) 40 mg tablet terazosin (HYTRIN) 10 mg capsule thiamine (VITAMIN B1) 100 mg tablet traMADoL (ULTRAM) 50 mg tablet Social history: The patient's Raine can be reached at [phone]. 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 Family history: Reviewed and noncontributory. Physical Examination: Neuro: OE to voice, briefly regards, follows commands Oriented to self PERRL, EOMI, face symmetric at rest, NPT BUE >=4/5 BLE >=4/5 Psych: normal affect Constitutional: no acute distress HENT: normocephalic Cardiovascular: normal rate Pulmonary: normal respiratory effort Abdominal: non-distended Musculoskeletal: normal range of motion Imaging and Labs: Noncontrast head CT acquired at the outside hospital demonstrates scattered trace subarachnoid hemorrhage. Brain MRI acquired at the outside hospital demonstrates small volume intraventricular hemorrhage inthe occipital horns. Labs: Sodium 143, creatinine 0.75, WBC 7.1, platelets 137, PT 12.5, INR 1.1, PTT 31 Assessment and Plan: 71 y.o. year-old male on Eliquis (last 3/3) with past medical history of hypertension, hyperlipidemia, CHF, COPD, atrial fibrillation, supine, and alcohol use who presented to an outside hospital after a fall who is found to have trace traumatic subarachnoid hemorrhage with small volume intraventricular hemorrhage layering in the bilateral occipital horns. The patient is GCS 13 on exam. 1. BMP, CBC, PT, PTT, UA macro-micro, CXR, EKG, T&S, COVID 2. Repeat HCT 3. Keppra 500 x7 days 4. CIWA protocol This plan will be discussed with the chief resident and attending environmental restoration planner. Belinda Shaffer MD PhD] Cosigned by Seth Kiser MD at 06/14/2021 8:11 AM GREEN MARKETING ANALYST N MARKETING ANALYST N MARKETING ANALYST documented in this encounter Procedure Notes * Luisa Gabriel - 07/05/2021 2:34 PM CDT Speech-Language Pathology: Videofluoroscopic Study of Swallow (VFSS/MBS) HPI/PMH 71M HTN/HL, a-fib on Eliquis, HFrEF (45-50% EF 2020), COPD not on home O2, legally blind, hearing loss, Ccy p/w trace tSAH and IVH following a fall. Admitted OSH with altered LOC. Initial CT neg but subsequent MRI with tr SAH/IVH. Tx to [facility] NSGY service 06/11 where has remained encephalopathic. Current Diet Order: NDD1,no liquid Baseline Feeding Status: Unknown General Information Jania Redman 07/05/21 [employer] Received On: 07/05/21 General Observations: Pt alert and upright in chair for evaluation. Pt unable to consistently follow commands during evaluation. Reason for Referral: Further evaluate oral pharyngeal swallow function Pain Score: 0 - No pain If pain >4, was RN notified? N/A Patient Stated Goal/Comments: None Precautions: Fall, seizure, aspiration, WENCESLAO, low risk non-suicidal self injurous Clinical Impression & Professional Recommendations Diet Solids Recommendation: Dysphagia diet-Phase 1 Diet Liquids Recommendations: Thin/regular Recommended Form of Medications: Crushed, With puree Compensatory Strategies/Modifications: Single sips, Small bites, Slow rate Postural Recommendations: Upright Assistance with feeding/swallowing: One to one assist with meals, Full supervision with meals Specialty Instructions/Modifications: Good oral care 2-3x/day Overall Clinical Impression/Additional Information: Moderate oral-pharyngeal swallow dysfunction with motor and sensory deficits characterized by the following: ?? Oral Phase Deficits: Disorganized and delayed oral preparation and transit ?? Pharyngeal Phase Deficits: Incomplete laryngeal vestibule closure, minimally reduced tongue baseretraction, delayed swallow initiation ?? Deficits result in: Premature spillage observed to the pyriform sinuses across trials of liquid.Pt also noted to have majority of bolus in the valleculae before swallow initiation occurred with puree trials. Pt noted to have a significant swallow delay, but swallow is still functional. Initially, pt didn't aspirate with small sips of thin liquid, even with delayed swallow initiation. Pt was then given a verbal cue to swallow more timely, and trace aspiration of thin liquids occurred on one singular trial. Pt didn't sense aspiration and a cued cough was unsuccessful in clearing material. No penetration/aspiration observed with nectar-thickened liquid or puree. No further consistencies trialed at this time d/t concern given pt's minimal mastication, premature spillage of bolus, and delayed initiation of swallow. Given the amount of material in the valleculae and pyriform sinuses before initiation of swallow, additional time is needed between each swallow to ensure pt has cleared material. [employer] to f/u to ensure pt is tolerating diet and following recommended strategies. Assessment Details & Results Purpose and Procedure of Videofluoroscopic Study of Swallow: Videofluoroscopic Study of Swallow completed to assess oropharyngeal swallow function and safety/efficiency of the swallow so that diet recommendations can be made. This test is completed in conjunction with Radiology. Results of this test are indicative of performance at the time of the exam. Standard procedure is in lateral view at 90 degrees. Consistencies Administered: Thin liquids, [place] thickened liquids, Purees Administered consistencies contain barium product. Thin Liquids: Laryngeal Penetration: Present Aspiration Present: Yes Timing: During Amount: Trace Response to aspiration: None Successful Modifications : None Unsuccessful Modifications: Cough Successful Modification Combinations: None Unsuccessful Modification Combinations: None Penetration Aspiration Scale-Thin: 8-Material enters the airway, passes below the vocal folds and no effort is made to eject [place] Thickened Liquids: Laryngeal Penetration: None Aspiration Present: No Successful Modifications : None Unsuccessful Modifications: None Successful Modification Combinations: None Unsuccessful Modification Combinations: None Penetration Aspiration Scale-[place]: 1-Material does not enter airway Purees: Laryngeal Penetration: None Aspiration Present: No Successful Modifications : None Unsuccessful Modifications: None Successful Modification Combinations: None Unsuccessful Modification Combinations: None Penetration Aspiration Scale-Puree: 1-Material does not enter airway MBSImp: MBSImp Results: Lip closure : 0-No labial escape Tongue Control with Bolus Hold: 3-Posterior escape of greater than half of bolus Bolus Preparation/Mastication : 2-Disorganized chewing/mashing with solid pieces of bolus unchewed Bolus Transport/Lingual Motion : 2-Slowed tongue motion Oral Residue: 1-Trace residue lining oral structures (normal variant) Initiation of Pharyngeal Swallow : 3-Bolus head in pyriforms Soft Palate : 0-No bolus between soft palate and pharyngeal wall Laryngeal Elevation : 0-Complete superior movement of thyroid cartilage with complete approximationof arytenoids to epiglottic petiole Anterior Hyoid Excursion: 0-Complete anterior movement Epiglottic Movement: 0-Complete inversion Laryngeal Vestibular Closure: 1-Incomplete, narrow column of air/contrast in laryngeal vestibule Pharyngeal Stripping Wave: 0-Present and complete Pharyngeal Contraction (AP view only): Not assessed, No AP view Pharyngoesophageal Segment Opening : 0-Complete distention and complete duration, no obstruction offlow Tongue Base Retraction : 1-Trace column of contrast or air between tongue base and posterior pharyngeal wall (normal variant) Pharyngeal Residue : 1-Trace residue within or on pharyngeal structures (normal variant) Esophageal Clearance (upright position): Not assessed, No AP view NOMS: National Outcomes Measurement System: Level 4 Dysphagia Outcome and Severity Scale: Dysphagia Outcomes and Severity Scale: 4 Mild/Moderate dysphagia Levels 1 & 2 on the MANNY indicate need for nonoral nutrition. Treatment Treatment was not provided this date. Please reference care plan for treatment goals and details, if indicated. Plan Multi-Disciplinary Problems (from Speech Therapy) Active Problems Problem: Swallowing Start Date: 06/26/21 Goal Start Date Expected End Date End Date LTG - Patient will tolerate the least restrictive diet consistency to allow for safe consumption ofdaily meals 06/26/21 07/24/21 -- Goal Start Date Expected End Date End Date STG - Patient will tolerate recommended food and liquid consistencies without clinical signs and symptoms of aspirations 06/26/21 07/10/21 -- Goal Start Date Expected End Date End Date STG - Patient will demonstrate safe oral intake to advance diet 06/26/21 07/10/21 -- [employer] Frequency of Services: Follow-up visit only [employer] Recommendation (Add'l Services): Acute Care [employer] Consult Next Visit Plan: treatment/therapy Additional Referrals: None Discharge Summary Statement If this is the last swallow therapy visit, this serves as the discharge summary. Cosigned by Queta Pires SLP at 07/05/2021 4:37 PM CDT * Mildred Buck, JOE - 06/26/2021 1:02 PM CDTAssociated Order(s): [employer] EVALUATE AND TREAT VIDEOFLUOROSCOPIC SWALLOW STUDY Speech-Language Pathology: Videofluoroscopic Study of Swallow (VFSS/MBS) HPI/PMH Per sign in room, pt is [place] and blind Admitted 06/11 HPI/PMH: 71M HTN/HL, a-fib on Eliquis, HFrEF (45-50% EF 2020), COPD not on home O2, legally blind, hearing loss, Ccy p/w trace tSAH and IVH following a fall. Admitted OSH with altered LOC. Initial CTneg but subsequent MRI with tr SAH/IVH. Tx to [facility] NSGY service 06/11 where has remained encephalopathic. Respiratory/Intubation Status: intubated 06/18, now on RA Imaging: CXR 06/17: Streaky right basilar opacities are seen likely representing aspiration. Mild pulmonary edema is noted, increased. Mild left basilar atelectasis is seen, increased. The costophrenic angles are excluded. There is no pneumothorax. The cardiomediastinal silhouette is stable. hCT 06/15: No significant interval change. Evolving small volume intraventricular hemorrhage. The known subarachnoid hemorrhage is not well appreciated, and may be due to portable technique Precautions: seizure, fall, aspiration, WENCESLAO, low risk non-suicidal self injurious Current Diet Order: NPO Baseline Feeding Status: unknown General Information Jania Redman 06/26/21 [employer] Received On: 06/26/21 General Observations: Pt seen sitting upright in the evaluation chair. Pt confused and required frequent redirection to task. Pt not able to follow commands during the evaluation to attempt swallowing modifications Reason for Referral: c/f aspiration Pain Score: 0 - No pain If pain >4, was RN notified? N/A Patient Stated Goal/Comments: Pt did not state any ST related goals/comments this date. Clinical Impression & Professional Recommendations Diet Solids Recommendation: Dysphagia diet-Phase 1 Diet Liquids Recommendations: NPO for liquids Recommended Form of Medications: Crushed, With puree (or via feeding tube) Compensatory Strategies/Modifications: Small bites Postural Recommendations: Upright 90 degrees Assistance with feeding/swallowing: Full supervision with meals Specialty Instructions/Modifications: oral care 2-3x/day Overall Clinical Impression/Additional Information: Moderate oral-pharyngeal swallow dysfunction with motor and sensory deficits characterized by the following: ?? Oral Phase Deficits: reduced lingual to palatal contact resulting in premature spillage into pharynx of all liquid consistencies; trace to mild oral residue. ?? Pharyngeal Phase Deficits: delayed swallow initiation to the level of the pyriforms, reduced hyo-laryngeal elevation and excursion, incomplete laryngeal vestibule closure, mild base of tongue weakness. ?? Deficits result in: With thin liquids, pt demonstrated consistent penetration and single instance aspiration before the swallow. With nectar thickened liquids and honey thickened liquids, pt demonstrated inconsistent penetration and inconsistent flash aspiration during the swallow; aspiration cleared back to laryngeal vestibule. Pt did not sense any penetration or aspiration and was unable to follow commands to attempt cough or any other modifications. No penetration or aspiration with any puree trials. Only trace to mild vallecular residue observed with liquid consistencies. Assessment Details & Results Purpose and Procedure of Videofluoroscopic Study of Swallow: Videofluoroscopic Study of Swallow completed to assess oropharyngeal swallow function and safety/efficiency of the swallow so that diet recommendations can be made. This test is completed in conjunction with Radiology. Results of this test are indicative of performance at the time of the exam. Standard procedure is in lateral view at 90 degrees. Consistencies Administered: Thin liquids, Honey thickened liquids, Purees, [place] thickened liquids Respiratory Support: No Significant Impairment- Respiratory support is adequate for speech & swallowing Administered consistencies contain barium product. Thin Liquids: Laryngeal Penetration: Present Aspiration Present: Yes Timing: Before Amount: Moderate Response to aspiration: None Penetration Aspiration Scale-Thin: 8-Material enters the airway, passes below the vocal folds and no effort is made to eject Comments: attempts at modifications unsuccessful this date given pt unable to follow commands [place] Thickened Liquids: Laryngeal Penetration: Present Aspiration Present: Yes Timing: During Amount: Moderate Response to aspiration: None (Flash aspiration during the swallow which cleared from airway into laryngeal vestible; however, material remained deep within laryngeal vestibule and pt did not sense.) Penetration Aspiration Scale-[place]: 6-Material enters the airway, passes below the vocal folds andis ejected into the larynx or out of the airway Comments: attempts at modifications unsuccessful this date given pt unable to follow commands Honey Thickened Liquids: Laryngeal Penetration: Present Aspiration Present: Yes Timing: During Amount: Moderate Response to aspiration: None (Flash aspiration during the swallow which cleared from airway into laryngeal vestible; however, material remained deep within laryngeal vestibule and pt did not sense.) Penetration Aspiration Scale-Honey: 6-Material enters the airway, passes below the vocal folds and is ejected into the larynx or out of the airway Comments: attempts at modifications unsuccessful this date given pt unable to follow commands Purees: Laryngeal Penetration: None Aspiration Present: No Penetration Aspiration Scale-Puree: 1-Material does not enter airway MBSImp: MBSImp Results: Lip closure : 1-Interlabial escape, no progression to anterior lip Tongue Control with Bolus Hold: 3-Posterior escape of greater than half of bolus Bolus Preparation/Mastication : 2-Disorganized chewing/mashing with solid pieces of bolus unchewed Bolus Transport/Lingual Motion : 1-Delayed initiation of tongue motion Oral Residue: 2-Residue collection on oral structures Initiation of Pharyngeal Swallow : 3-Bolus head in pyriforms Soft Palate : 0-No bolus between soft palate and pharyngeal wall Laryngeal Elevation : 2-Minimal superior movement of thyroid cartilage with minimal approximation of arytenoids to epiglottic petiole Anterior Hyoid Excursion: 1-Partial anterior movement Epiglottic Movement: 0-Complete inversion Laryngeal Vestibular Closure: 1-Incomplete, narrow column of air/contrast in laryngeal vestibule Pharyngeal Stripping Wave: 1-Present but diminished Pharyngeal Contraction (AP view only): Not assessed, No AP view Pharyngoesophageal Segment Opening : 0-Complete distention and complete duration, no obstruction offlow Tongue Base Retraction : 2-Narrow column of contrast or air between tongue base and posterior pharyngeal wall Pharyngeal Residue : 2-Collection of residue within or on pharyngeal structures Esophageal Clearance (upright position): Not assessed, No AP view NOMS: National Outcomes Measurement System: Level 3 Dysphagia Outcome and Severity Scale: Dysphagia Outcomes and Severity Scale: 3 Moderate dysphagia Levels 1 & 2 on the MANNY indicate need for nonoral nutrition. Treatment Treatment was not provided this date. Please reference care plan for treatment goals and details, if indicated. Plan [employer] Frequency of Services: 2-4x/wk [employer] CHE[employer] Recommendation (Add'l Services): Inpatient Rehab Facility [employer] - Next Appointment: 06/28/21 Next Visit Plan: treatment/therapy Additional Referrals: PT/OT Discharge Summary Statement If this is the last swallow therapy visit, this serves as the discharge summary. AMOL Dias, CCC-[employer]AGE CHE[employer], 06/26/21 2:28 PM * Mildred Buck SLP - 06/23/2021 2:53 PM CDT Speech-Language Pathology: Clinical Bedside Swallow HPI/PMH HPI/PMH: 71M HTN/HL, a-fib on Eliquis, HFrEF (45-50% EF 2020), COPD not on home O2, legally blind, hearing loss, Ccy p/w trace tSAH and IVH following a fall. Admitted OSH with altered LOC. Initial CTneg but subsequent MRI with tr SAH/IVH. Tx to [facility] NSGY service 06/11 where has remained encephalopathic. Respiratory/Intubation Status: intubated 06/18, now 10L face tent Imaging: CXR 06/17: Streaky right basilar opacities are seen likely representing aspiration. Mild pulmonary edema is noted, increased. Mild left basilar atelectasis is seen, increased. The costophrenic angles are excluded. There is no pneumothorax. The cardiomediastinal silhouette is stable. hCT 3/10: No significant interval change. Evolving small volume intraventricular hemorrhage. The known subarachnoid hemorrhage is not well appreciated, and may be due to portable technique Precautions: seizure, fall, aspiration, WENCESLAO Current Diet Order: NPO Baseline Feeding Status: unknown General Information Jania Redman 06/23/21 General Observations: Pt seen sitting upright in bed. Pt alert and able to follow most simple commands with cues and repetition. Pain Score: 0 - No pain If pain >4, was RN notified? N/A Patient Stated Goal/Comments: Pt stated he wanted to eat chicken. Clinical Impression & Professional Recommendations Diet Solids Recommendation: NPO (pending MBS) Diet Liquids Recommendations: NPO for liquids, Ice chips only sparingly with RN supervision (pending MBS) Recommended Form of Medications: Feeding tube Specialty Instructions/Modifications: (Please assist pt with oral care 2-3 times a day, including teeth brushing (gums and tongue) to improve the oral biome and reduce the risk of aspiration related complications (i.e., PNA) Diagnosis: Dysphagia Diagnosis: Suspect pharyngeal dysphagia Overall Clinical Impression/Additional Information: Pt was repositioned upright to 90 degrees and was presented with trials of thins via teaspoon, cup edge, and straw and purees. Pt with inconsistentcoughing following thin liquids and purees, suggestive of possible penetration/aspiration. Secretion management appeared much improved this date with clear strong voicing at baseline prior to PO. Recommend MBS to further assess current function, r/o aspiration, and to determine safest and least restrictive diet. Assessment Details & Results Consistencies Administered: Ice chips, Thin liquids, Purees MASA: Freeman Assessment of Swallowing Ability (MASA) Alertness: Alert Cooperation: Cooperative Auditory Comprehension: Follows simple conversation with repetition Respiration: Fine basal crepitations Respiratory Rate (for swallow): Able to control breath rate for swallow Aphasia: Mild difficulty finding words or expressing ideas Apraxia: No abnormality detected Dysarthria: Speech intelligible but obviously defective Saliva: No abnormality detected Lip Seal: No abnormality detected Tongue Movement: Full range of motion Tongue Strength: Minimal weakness Tongue Coordination: No abnormality detected Gag: No gag (did not assess) Palate: No spread or elevation (unable to visualize) Cough Reflex: Weak reflexive cough Voluntary Cough: Attempt, bovine Voice: Mild impairment/slight huskiness Trach: No trach Oral Preparation: No deficits noted Bolus Clearance: Fully cleared Oral Transit: Delay > 1 second Delay consistency: Thin liquids, Purees, Solids Pharyngeal Phase: Mildly restricted laryngeal elevation, Slow initiation Pharyngeal Response: Cough before, during, or after swallow MASA Score: 160 Dysphagia: Moderate dysphagia (139-167) Aspiration Risk: Mild aspiration risk (149-169) NOMS: National Outcomes Measurement System: (TBD following MBS) Plan [employer] Frequency of Services: (TBD following MBS) [employer] Recommendation (Add'l Services): Defer at this time (TBD following MBS) [employer] - Next Appointment: 06/26/21 Further Assessment/Follow up Indicated: Recommendations: Follow-up videofluoroscopic swallowing study Next Visit Plan:instrumental evaluation Additional Referrals: PT/OT Please reference care plan for treatment goals, if indicated. Discharge Summary Statement If this is the last swallow therapy visit, this serves as the discharge summary. AMOL Dias, CCC-[employer], 06/23/21 4:29 PM * Chyna Tucker, [employer] - 06/21/2021 9:59 AM CDT Speech-Language Pathology: Clinical Bedside Swallow HPI/PMH 71M HTN/HL, a-fib on Eliquis, HFrEF (45-50% EF 2020), COPD not on home O2, legally blind, hearing loss, Ccy p/w trace tSAH and IVH following a fall. Admitted OSH with altered LOC. Initial CT neg but subsequent MRI with tr SAH/IVH. Tx to [facility] NSGY service 06/11 where has remained encephalopathic. Respiratory/Intubation Status: intubated 06/18, now 10L face tent Imaging: CXR 06/12: Heart and mediastinal contours are unchanged. Atherosclerotic calcifications are noted in the aortic arch. The lungs are clear without any focal consolidation, pleural effusion, or pneumothorax. hCT 06/12: Evolving small volume intraventricular hemorrhage and subarachnoid hemorrhage not as well visualized on the current exam. There is no evidence of interval bleed. Precautions: seizure, fall, aspiration, WENCESLAO Current Diet Order: NPO, FT Baseline Feeding Status: unknown General Information Jania Redman 06/21/21 General Observations: Swallow evaluation completed in [facility]400[facility]. RN agreeable to swallow evaluation/PO trials. Pt with gurgling sounds prior to evaluation. Per RN this has been consistent for pt and hehas been medically stable (no consideration for re-intubation at this time). Pt reclined in chair, bilateral mittens, wrist restraints, and face tent (RN gave okay for face tent to be removed for evaluation) in place. SpO2 ~ 99%, RR ~22. Pt asleep and required very loud verbal cues to rouse upon [employer] arrival in room. No family/visitors present. Pt with difficulty answering questions. Pain: 0 If pain >4, was RN notified? N/A Patient Stated Goal/Comments: Pt did not state goals related to skilled ST this date. Clinical Impression & Professional Recommendations Diet Solids Recommendation: NPO (pending re-eval) Diet Liquids Recommendations: NPO for liquids (pending re-eval) Recommended Form of Medications: Feeding tube Specialty Instructions/Modifications: thorough oral care 2-3x/day; moist swabs with RN when upright/alert Diagnosis: Dysphagia Diagnosis: (pending re-eval) Overall Clinical Impression/Additional Information: Pt only able to protrude tongue for oral mechanism exam (unable to follow other commands). Pt did voice ah on command - wet/gurgly vocal quality.RN suctioned pt's oral cavity via Yankauer prior to PO trials - clear secretions removed. Pt fidgeting in chair trying to remove mittens. Pt was redirectable with PO trials. Pt's voice became clearerafter ice chips and no overt s/s of aspiration. No s/s of aspiration with thin liquids via tsp. However, pt with increased wet/gurgly vocal quality with thin liquids via straw. Pt with very large cough response after thin liquids via straw. Pt then had crackling/congested breath sounds. No further PO trials administered. Recommend re-evaluation at bedside prior to PO diet initiation/instrumental evaluation. Assessment Details & Results Consistencies Administered: Ice chips, Thin liquids MASA: Freeman Assessment of Swallowing Ability (MASA) Alertness: Fluctuates Cooperation: Cooperative Auditory Comprehension: Follows simple conversation with repetition Respiration: Course basal crepitation/chest physiotherapy Respiratory Rate (for swallow): Able to control breath rate for swallow Aphasia: Expresses self in limited manner short phrases/words Apraxia: No abnormality detected Dysarthria: No abnormality detected Saliva: No abnormality detected Lip Seal: No abnormality detected Tongue Movement: Mild impairment in range Tongue Strength: Gross weakness (unable to assess) Tongue Coordination: No movement/unable to assess Gag: No gag (did not assess) Palate: No spread or elevation (unable to assess) Cough Reflex: Weak reflexive cough Voluntary Cough: No attempt/unable Voice: Wet/gurgling Trach: No trach Oral Preparation: No deficits noted (ice chips and thin liquids only) Bolus Clearance: Fully cleared Oral Transit: Delay > 1 second Pharyngeal Phase: Mildly restricted laryngeal elevation, Slow initiation Pharyngeal Response: Cough before, during, or after swallow MASA Score: 131 Dysphagia: Severe dysphagia (<138) Aspiration Risk: Severe aspiration risk (<140) NOMS: National Outcomes Measurement System: (pending re-eval) Plan [employer] Frequency of Services: (pending re-eval) [employer] Recommendation (Add'l Services): (pending re-eval) Further Assessment/Follow up Indicated: Recommendations: (re-evaluation at bedside) Next Visit Plan:re-evaluate at the bedside Additional Referrals: none Please reference care plan for treatment goals, if indicated. Discharge Summary Statement If this is the last swallow therapy visit, this serves as the discharge summary. * Shelia Posadas MD - 06/15/2021 3:57 AM CSTAssociated Order(s): Intubation Post-Procedure Diagnose(s): Intraventricular hemorrhage (CMS/HCC) (HCC) Intubation Date/Time: 06/15/2021 3:57 AM Performed by: Shelia Posadas MD Authorized by: Shelia Posadas MD [place] Protocol: RN Notified of Procedure: yes Informed consent: Risks, benefits, alternatives discussed and patient/parts sales representative/guardian agrees and accepts Patient's stated name/ matches armband: Yes Allergies confirmed: yes Consent form signed, dated, timed; matches correct patient, intended procedure and site: No consent form due to emergent status Imaging: Pertinent imaging reviewed, correctly oriented and match to patient identifiers Lab/Diag test results: Pertinent lab/diag tests reviewed and match to patient identifiers Supplies, devices and special equipment are available: yes Immediately prior to the procedure a time out was called: a verbal verification by the procedure participants confirmed correct patient identity, correct site/side marked and visible (if applicable);agreement on procedure to be done; and correct patient positioning Indications: Respiratory distress and airway protection Intubation method: Video-assisted Patient status: Sedated Patient position: Flat Preoxygenation: Nonrebreather mask Mask Ease: not attempted Pretreatment meds: Fentanyl Sedation: Etomidate Paralytic: None Visualization used: Direct Laryngoscope size: Mac 4 (D-Blade) Tube size (mm): 8.0 Tube type: Cuffed Number of attempts: 1 Was this a difficult intubation?: No Cricoid pressure: No Cords visualized: Yes Post-procedure assessment: Chest rise and ETCO2 monitor Breath sounds: Equal Cuff inflated: Yes ETT to lip (cm): 26 ETT to teeth (cm): 25 Tube secured with: ETT broderick Chest x-ray interpreted by: Chest x-ray findings: Endotracheal tube too high Tube repositioned: Tube repositioned successfully Complications: Hypotension The patient required several suctioning attempts yielding a significant amount of endotracheal secretions, and leading to improvement in bilateral breath sounds (previously quite coarse) Cosigned by Elver Rodriguez MD PhD at 06/22/2021 2:10 PM CDT N MARKETING ANALYST * Mildred Buck, JOE - 06/13/2021 8:54 AM CST Speech-Language Pathology: Clinical Bedside Swallow HPI/PMH HPI/PMH: 71M HTN/HL, a-fib on Eliquis, HFrEF (45-50% EF 2020), COPD not on home O2, legally blind, hearing loss, Ccy p/w trace tSAH and IVH following a fall. Admitted OSH with altered LOC. Initial CTneg but subsequent MRI with tr SAH/IVH. Tx to [facility] NSGY service 06/11 where has remained encephalopathic. Respiratory/Intubation Status: currently on 8L via face tent Imaging: CXR 06/12: Heart and mediastinal contours are unchanged. Atherosclerotic calcifications are noted in the aortic arch. The lungs are clear without any focal consolidation, pleural effusion, or pneumothorax. hCT 06/12: Evolving small volume intraventricular hemorrhage and subarachnoid hemorrhage not as well visualized on the current exam. There is no evidence of interval bleed. Precautions: seizure, fall, aspiration, WENCESLAO Current Diet Order: NPO Baseline Feeding Status: unknown; pt unable to report General Information Jania Redman 06/13/21 General Observations: Pt seen sitting upright in a chair. Pt lethargic, unable to maintain alertness t/o evaluation, very limited commands followed, not attempting to communicate. Pain Score: 0 via NPAT If pain >4, was RN notified? N/A Patient Stated Goal/Comments: Pt nonverbal t/o the evaluation. Clinical Impression & Professional Recommendations Diet Solids Recommendation: NPO Diet Liquids Recommendations: NPO for liquids. Oral swabs for comfort Recommended Form of Medications: Feeding tube Specialty Instructions/Modifications: (Please assist pt with oral care 2-3 times a day, including teeth brushing (gums and tongue) to improve the oral biome and reduce the risk of aspiration related complications (i.e., PNA) Diagnosis: Dysphagia Diagnosis: Suspect oral-pharyngeal dysphagia Overall Clinical Impression/Additional Information: Pt demonstrated significant impairment in levelof alertness this date; therefore, limited assessment completed w/ regard to oral mechanism and with regard to swallow function this date. Pt accepted single trial ice chip following oral stimulation; however, no swallow initiated despite cues. Ice suctioned from pt's oral cavity with Yankauer. Given pt lethargy, additional trials not attempted this date. [employer] to continue to follow and complete swallow re-evaluation with increased FABRIZIO. Assessment Details & Results Consistencies Administered: Ice chips MASA: Freeman Assessment of Swallowing Ability (MASA) Alertness: Difficulty to rouse Cooperation: Fluctuating cooperation Auditory Comprehension: Occasional motor resonse if cued Respiration: Chest clear Respiratory Rate (for swallow): No independent control (unable to assess; no swallow initiated) Aphasia: Unable to assess Apraxia: Unable to assess Dysarthria: Unable to assess Saliva: Frothy/expectorated Lip Seal: No abnormality detected Tongue Movement: Minimal movement Tongue Strength: Gross weakness (unable to assess) Tongue Coordination: No movement/unable to assess (unable to assess) Gag: No gag (unable to assess) Palate: No spread or elevation (unable to assess) Cough Reflex: Unable to assess Voluntary Cough: No attempt/unable Voice: Aphonic/unable to assess Trach: No trach Oral Preparation: No bolus formation, no attempts Bolus Clearance: No clearance (no swallow) Oral Transit: No movement Pharyngeal Phase: No swallow Pharyngeal Response: No coping/gurgling (no swallow) MASA Score: 77 Dysphagia: Severe dysphagia (<138) Aspiration Risk: Severe aspiration risk (<140) NOMS: National Outcomes Measurement System: (TBD following swallow re-evaluation) Plan [employer] Frequency of Services: (TBD following swallow re-evaluation) [employer] Recommendation (Add'l Services): Defer at this time (TBD following swallow re-evaluation) [employer]ER - Next Appointment: 06/15/21 Further Assessment/Follow up Indicated: Recommendations: (swallow re-evaluation) Next Visit Plan:swallow re-evaluation Additional Referrals: PT/OT Please reference care plan for treatment goals, if indicated. Discharge Summary Statement If this is the last swallow therapy visit, this serves as the discharge summary. AMOL Dias, CCC-[employer]ER, 06/13/21 9:33 AM N MARKETING ANALYST documented in this encounter Consult Notes * Shayla Cardenas NP - 07/03/2021 7:56 PM CDT Patient Name: JANIA REDMAN Medical Record Number (MRN): [id number] Date of (): 1950 Encounter Date: 06/11/2021 Date of Service: 07/03/21 Physical Medicine and Rehabilitation Consultation Requesting Service: Geriatric Trauma Reason for Consultation: PM&R Recommendations Date of Consultation: 06/29/2021 Chief Complaint Traumatic SAH/IVH/IPH Encephalopathy HPI The following history was obtained from the patient/caregiver, the available medical record, and discussion with the primary team. 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 He was reportedly reaching for something and lost his balance, +head strike and LOC. 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 He initially presented to [facility] 06/08, where he was evaluated for possible syncopal episodes. There were reported involuntary movements and n ystagmus and he was loaded with Keppra and planned for EEG. He was started on CIWA protocol w/ librium. MRI revealed SAH, IVH and small IPH, and he was transferred to [facility] for NSGY consult. At [facility] after transfer he was noted to have worsening of following commands, more somnolent following Ativan administration for high CIWA score. He is reportedly A&O x 1 at baseline since admission, but prior to admission A&O x 4. He was also treated for scrotal infection and completed ABX and antifungals. An NG tube was placed but this was pulled out by patient 06/29. He continued to have poor PO intake and was taken on 06/30 for NG tube SBFT, which he subsequently pulled out. Now found to have left intertrochanteric femur fracture and ortho planning for OR. Neurology was consulted for encephalopathy/AMS and recs were given. Subjective: Patient seen on daily rounds with attending physician. Exam as below. Discussed recs with social media community manager on floor. OT recs for IRF, PT recs for SNF. Patient not agitated on exam but unable to follow simple commands and poor attention. No outpatient medications have been marked as taking for the 06/11/21 encounter (Hospital Encounter). Current Facility-Administered Medications Medication Dose Route Frequency Provider Last Rate Last Admin ??? acetaminophen (TYLENOL) tablet 650 mg 650 mg feeding tube Q4H PRN Cassie Trent NP 650mg at 06/18/21 0035 ??? albuterol 2.5 mg/0.5 mL nebulizer solution 1.25 mg 1.25 mg nebulization Q6H PRN (RT) Jair Jay MD ??? dextrose 5% and Lactated Ringer's infusion 50 mL/hr intravenous Continuous Elizabeth Persaud NP 50 mL/hr at 06/30/21 0621 50 mL/hr at 06/30/21 0621 ??? docusate (COLACE) 10 mg/mL oral liquid 100 mg 100 mg feeding tube Daily Sada العلي NP 100 mg at 06/29/21 0946 ??? heparin 5,000 unit/mL injection 5,000 Units 5,000 Units subcutaneous Q8H [facility] Cassie Trent NP 5,000 Units at 06/30/21 0615 ??? metoprolol tartrate (LOPRESSOR) immediate release tablet 50 mg 50 mg feeding tube BID Jair Jay MD 50 mg at 06/30/21 0928 ??? miconazole (SECURA THICK) 2 % cream topical BID Andreia Ellis MD Given at 06/30/21 0931 ??? cfiuyctu-nwv-lxidmfs gluconate (CENTRUM) 0.6 mg iron/mL oral liquid 15 mL 15 mL feeding tube Daily Cassie Trent, TEXTILE MACHINE MAINTENANCE MECHANIC 15 mL at 06/30/21927 ??? pantoprazole (PROTONIX) 4 mg/mL injection 40 mg 40 mg intravenous Daily Mily Cuevas, TEXTILE MACHINE MAINTENANCE MECHANIC 40 mg at 06/30/21 0913 ??? pravastatin (PRAVACHOL) tablet 40 mg 40 mg feeding tube Daily Cassie Trent TEXTILE MACHINE MAINTENANCE MECHANIC 40 mg at 06/30/21927 ??? ramelteon (ROZEREM) tablet 8 mg 8 mg feeding tube Nightly Cory Tamiko Zunigae, TEXTILE MACHINE MAINTENANCE MECHANIC 8 mg at 06/29/21 1745 ??? senna 1.76 mg/mL syrup 8.8 mg 8.8 mg feeding tube BID Sada العلي, TEXTILE MACHINE MAINTENANCE MECHANIC 8.8 mg at 06/29/212114 ??? sodium chloride 0.9% flush 0.5-20 mL 0.5-20 mL intra-catheter Q8H MONET Belinda Shaffer MD PhD 10 mL at 06/30/21 0616 ??? sodium chloride 0.9% flush 0.5-20 mL 0.5-20 mL intra-catheter PRN Belinda Shaffer MD PhD 10 mL at 06/25/21 0745 ??? terazosin (HYTRIN) capsule 10 mg 10 mg feeding tube Nightly Ciarra Jama, TEXTILE MACHINE MAINTENANCE MECHANIC 10 mg at 06/29/212112 ??? thiamine (VITAMIN B1) tablet 100 mg 100 mg feeding tube Daily Jair Jay MD 100mg at 06/30/21 09 ??? traZODone (DESYREL) tablet 100 mg 100 mg feeding tube Nightly Ciarra Jama, TEXTILE MACHINE MAINTENANCE MECHANIC 100 mg at 06/29/212114 Allergies Allergen Reactions ??? Penicillins Hives Patient Active Problem List Diagnosis ??? Hypercholesterolemia [...] Orthostatic hypotension ??? Acute respiratory failure (HCC) Past Medical History: Diagnosis Date ??? [...] ??? Anesthesia problems Neg Hx Social History Socioeconomic History ??? Marital status: Spouse name: Not on file ??? Number of children: Not on file ??? Years of education: Not on file ??? Highest education level: Not on file Occupational History ??? Not on file Tobacco Use ??? Smoking status: Current Every Day Smoker Packs/day: 1.00 Types: Cigarettes Start date: 1964 ??? Smokeless tobacco: Never Used Vaping Use ??? Vaping Use: Never used Substance and Sexual Activity ??? Alcohol use: Yes Comment: limited ??? Drug use: Yes Types: Alcohol Comment: Reportedly 3 shots of Tequila/day ??? Sexual activity: Defer Other Topics Concern ??? Not on file Social History Narrative Cigarette smoker : (Added by TW Conv) Social Determinants of Health Financial Resource Strain: Unknown ??? Difficulty of Paying Living Expenses: Patient refused Food Insecurity: No Food Insecurity ??? Worried About Running Out of Food in the Last Year: Never true ??? Ran Out of Food in the Last Year: Never true Transportation Needs: No Transportation Needs ??? Lack of Transportation (Medical): No ??? Lack of Transportation (Non-Medical): No Physical Activity: Not on file Stress: Not on file Social Connections: Socially Isolated ??? Frequency of Communication with Friends and Family: Never ??? Frequency of Social Gatherings with Friends and Family: Never ??? Attends Pentecostal Services: Never ??? Active Member of Clubs or Organizations: No ??? Attends Club or Organization Meetings: Never ??? Marital Status: Intimate Partner Violence: Not on file Housing Stability: Low Risk ??? Unable to Pay for Housing in the Last Year: No ??? Number of Places Lived in the Last Year: 1 ??? 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 , per SW note Current Functional Status Current Therapy Evaluations: OT 06/30 Grooming edge of bed mos assist LE dressing max assist Toileting supine dependent with bedpan Bed mobility supine <> rolling max assist Supine <> edge of bed max assist x 2 Transfers not attempted PT 06/28 A&O x 1 Resisted sit to stand, pushes posterior COTTAGE CHEESE MAKER 06/29 Dysphagia 1, NPO liquids, meds crushed w/ puree Recommendation/Plan PT Recommendation/Plan: [facility]-Way Facility PT Recommendation/Plan Comments: SNF pending activity tolerance PT Frequency: 3-5x/wk Treatment/Interventions: Balance Training; Bed mobility; Endurance training; Functional activity; Functional transfer training; Gait training; Neuromuscular re-education; Positioning; Range of motion; Stair training; Strengthening; Therapeutic activity; Therapeutic exercise; Transfer training Progress: Progressing toward goals PT - Next Appointment: 07/05/21 PT Evaluation Complete: Yes Review of Systems 10 point ROS negative except as above per HPI. Information taken from chart as patient is unable toprovide information d/t current AMS Vital Signs Vitals: 07/03/21 1103 07/03/21 1138 07/03/21 1222 07/03/21 1554 BP: 122/95 135/87 111/67 143/94 BP Location: Right arm Right arm Right arm Right arm Patient Position: Sitting Sitting Sitting Sitting Pulse: 81 85 69 101 Resp: 16 16 Temp: 36.3 ??C (97.3 ??F) TempSrc: Axillary SpO2: 92% 95% 96% Weight: Height: Physical Exam General: Alert, pleasant, NAD, well-nourished, well-developed, sitting up in chair in room HEENT: EOMI without nystagmus, no fluid discharge from eyes, ears, nose, skull Respiratory: Nonlabored respiration, breathing comfortably on room air, no accessory muscle use Cardiovascular: No lower extremity edema Abdomen: Soft, non-tender Extremities: No gross deformity or abnormalities in alignment Skin: No rashes, scars, erythema, or discharge noted on visible skin Neurologic: Mental status/cognition: AAOx1 to self only, unable to follow simple commands for exam, inconsistent answers, unable to state days of week, unable to recall where he lives or what happened that precipitated hospitalization Cranial Nerves: sticks out tongue and moves side to side, gaze crosses midline, Unable to complete full exam d/t current attention/AMS Assessment Patient is a 71 y/o male with PMH of a-fib on Eliquis, HTN, HLD, HFrEF, COPD, 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 He was reportedly reaching for something and lost his balance, +head strike and LOC. 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 He initially presented to [facility] 06/08, where he was evaluated for possible syncopal episodes. There were reported involuntary movements and n ystagmus and he was loaded with Keppra and planned for EEG. He was started on CIWA protocol w/ librium. MRI revealed SAH, IVH and small IPH, and he was transferred to [facility] for NSGY consult. At [facility] after transfer he was noted to have worsening of following commands, more somnolent following Ativan administration for high CIWA score. He is reportedly A&O x 1 at baseline since admission, but prior to admission A&O x 4. He was also treated for scrotal infection and completed ABX and antifungals. An NG tube was placed but this was pulled out by patient 06/29. He continued to have poor PO intake and was taken on 06/30 for NG tube SBFT, which he subsequently pulled out. Now found to have left intertrochanteric femur fracture and ortho planning for OR. Neurology was consulted for encephalopathy/AMS and recs were given. Plan # Medical Plan: Per primary team. # Functional Impairments: -Recommend sitting up out of bed for at least 3 hours at a time, BID. Patient should have the physical endurance and arousal level to tolerate this level of activity in order to be considered for acute rehabilitation. # Pain: -Continue to monitor and address accordingly as pain may limit ability to participate with therapies. -Use minimum amount of narcotics to achieve effective pain relief. -Please consider use of modalities (ie. Ice, heat), and/or topical medications (ie. Lidocaine cream/aspercreme) to achieve pain relief. # Sleep: -Continue to monitor the patient???s sleep wake cycle (ie. sleep log if possible) and ensure they are receiving adequate sleep as this is important for recovery and for rehabilitation efforts. -Use appropriate diurnal cues (ie. Lighting, bed positioning, elimination of electronic devices) and minimize disruptions during sleeping hours as much as possible. -Agree with current Ramelteon 8 mg QHS scheduled and trazodone 100 mg QHS. Can titrate trazodone to150 mg if medially tolerated # Agitation/Motor Restlessness: -Continue to provide low-stimulation environment (ie. limit number of visitors, keep room quiet as much as possible) -Please try to avoid haldol and benzodiazepines if possible # Bowel/Bladder: -Please ensure adequate bowel movements, particularly if patient is using an appreciable amount of narcotic pain medications. -Please consider obtaining PVRs to assess for urinary retention # Skin Care/Hygiene: -Skin breakdown precautions due to prolonged hospitalization/significant amount of time in bed. -Recommend pressure relief when out of bed, with patient education to perform pressure relief every30 minutes. -Recommend turning patient while in bed every 2 hours to prevent development of pressure sores/ulcers. -Recommend adequate nutritional intake to provide for adequate healing. # FEN/GI: -Please ensure adequate nutrition and consider nutrition consult as indicated # DVT PPX: -Per primary team. # DISPOSITION RECOMMENDATIONS: To be an appropriate acute inpatient rehabilitation candidate, the patient should (1) be medically appropriate in order to clinically tolerate a minimum of 3 hours/day at least 5 days/week due to intensity of acute inpatient therapies, (2) demonstrate enough cognitive carryover to ensure that therapies will be effective with subsequent treatments, (3) demonstrate enough endurance to tolerate 3 hours/day at least 5 days/week of intensive multidisciplinary therapies, (4) be able and willing to participate with therapies, and (5) have adequate social support and reasonable and safe anticipated discharge plan in place prior to being admitted for acute inpatient rehabilitation. -General Therapy/Rehabilitation-Related Recommendations: -Recommend patient be sitting upright 3 hours BID, but with adequate pressure relief -Continue to have patient evaluated by PT, OT, and COTTAGE CHEESE MAKER -Recommend COTTAGE CHEESE MAKER cognition evaluation for further COTTAGE CHEESE MAKER cognitive therapy planning; neurology has givenrecs as well and signed off -PT and OT are continuing to evaluate patient for discharge recs. On review of current available therapy notes as well as current exam, patient would not be a candidate for IRF at this time d/t levelof ability to participate in and function with therapies. He is also not medically able to tolerateintensity of acute inpatient therapies as outlined above. At this current time patient would be more appropriate for SNF/LTC, as he currently needs 24 hour supervision for safety. However, patient's current medical co-morbidities are being continuously monitored by the primary/consult teams. Patient will be going to the OR TBD with ortho for femur fracture. Thank you for this consult and for your consideration of the above recommendations. For questions or concerns, please call the PM&R Consult service at . Shayla Cardenas, MSN, PRESIDENT & FOUNDER, AGNP-C Adult-Gerontology Nurse Practitioner-Certified Physical Medicine & Rehabilitation [facility] in [place] * Girma Mcleod MD - 07/03/2021 11:55 AM CDTAssociated Order(s): IP CONSULT TO NEUROLOGY Images from the original note were not included. Neurology Consult Note Visit date: 07/03/2021 Patient: Jania Redman Neurology Initial Consult Note Requesting Provider or Service: Darrel Wolf,*, Neurosurgery Reason for Consult: persistent altered mental status no consistent with baseline Subjective HISTORY OF PRESENT ILLNESS Jania Redman is a 71 y.o. 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 On 06/08 was reaching overhead for something in a closet and lost his balance, falling and striking his head on a wine cooler and lost consciousness which prompted her to call EMS. He was taken to OSH for evaluation and admitted. CTH initially read as neg for bleed. There was reported involuntary movements and nystagmus for which he was loaded with Keppra and planned for EEG, the course of this is unclear per notes in Epic. He had reportedly been started on CIWA protocol. An MRI later revealed SAH, IVH, small IPH for which he was ultimately transferred to [facility] under the neurosurgerical service the evening of 06/11. He was continued on alcohol withdrawal protocol from OSH. Overnight 06/11-06/12 not following commands and somnolent ( His baseline neuro exam on admission was 4/5 strength examination throughout, opens eyes to voice, reactive pupils. He was then no tably not opening eyes and only localizing to pain ) possibly worse following Ativan administrationfor high CIWA score (15, scoring for disorientation and poor eye contact which was reportedly baseline on admission). Transferred from floor to stepdown unit for closer observation and NSGY consultedmedicine service for assistance with syncope work-up and management of multiple comorbidities (per Dr Thurston's note actually for tachycardia and c/f etoh withdrawal). On Medicine consult eval there was c/f respiratory decompensation prompting nasal trumpet placement and POCT ABG 7.43/82/24. Transferred to 9400 ICU for closer monitoring. In further discussions with Neurosurgeons, there had been noacute change in neurologic exam but rather ongoing concerns for his degree of encephalopathy and altered sensorium. Additional Hospital Course: 06/11 Admitted. HCT with stable ventricular size, small IVH in occipital horns. 06/12: TTSDU, then TTICU for persistently depressed mental status. Repeat head CT stable. Metop for Afib w RVR. Started on high dose thiamine. EEG negative, planned for continuous. 06/13 placed on amio gtt for afib w/ RVR; cEEG d/c'd; TTE wnl outside of mild LAE 06/14 brain MRI w stable small SAH/IVH, no other infarct/lesion. Hypoxemia and desaturation, intubated overnight, HCT stable. 06/15 cEEG w/ mod gen slowing On 06/17, scrotal drainage sent for cultures. US demonstrated left hydrocele. CT pelvis positive forleft hydrocele, left scrotal cellulitis and left non- displaced trochanteric fracture. Put on 12 daycourse of antibiotics with bactrim and flaygyl that will end on PM of 06/29 (susceptibilities sent to [place]). Extubated on 06/18 and placed on high humidity face tent to help mobilize secretions. Ortho consulted for left trochanteric fracture but no plan for surgery. Positive orthostatics noted on 06/22 (unable to obtain standing BP but positive from lying to sitting). Due to concern for syncope, decreased terazosin dose to 10 mg daily. Patient had been unable to weight bear on LLE with PT, MRI L hip is pending to further assess for inury. Passed MBS on 06/26 for dysphagia diet (no liquids) and calorie count initiated; tube feeds discontinued to encourage oral intake. off HHFT and on room air since 06/26 and tolerating well with CPT and cough assist BID. For his ICU delirium, has responded well to ramelteon 8mg nightly at 1800 to establish a normal sleep/wake cycle and trazodone 100mg qHs. Discussed w pt's RN for last few days. Per RN mental status has improved significantly wo intervention since pt arrived to the floor. A few days ago was not answering questions or following commands and now is doing both. PAST MEDICAL & SURGICAL HISTORY Past Medical History: Diagnosis Date ??? Acute [...] THROUGH EXISTING CATHETER N/A 02/04/2020 ??? VASECTOMY FAMILY HX: Family History Problem Relation Age of Onset ??? Hypertension Mother ??? Lung cancer Father ??? Cancer Father ??? Anesthesia problems Neg Hx SOCIAL HX: Social History Tobacco Use ??? Smoking status: Current Every Day Smoker Packs/day: 1.00 Types: Cigarettes Start date: 1964 ??? Smokeless tobacco: Never Used Vaping Use ??? Vaping Use: Never used Substance Use Topics ??? Alcohol use: Yes Comment: limited ??? Drug use: Yes Types: Alcohol Comment: Reportedly 3 shots of Tequila/day OUTPATIENT MEDICATIONS HOME MEDICATIONS : apixaban (ELIQUIS) 5 mg tablet cholecalciferol (VITAMIN D-3) 5,000 unit tablet folic acid (FOLVITE) 1 mg tablet furosemide (LASIX) 40 mg tablet lisinopriL (PRINIVIL,ZESTRIL) 40 mg tablet metoprolol (LOPRESSOR) 100 mg tablet multivit,tx with iron,minerals (THERA-M ORAL) pantoprazole DR (PROTONIX) 40 mg EC tablet pravastatin (PRAVACHOL) 40 mg tablet terazosin (HYTRIN) 10 mg capsule thiamine (VITAMIN B1) 100 mg tablet INPATIENT MEDICATIONS Scheduled Medications: Scheduled Medications Medication Dose Route Frequency ??? docusate (COLACE) 10 mg/mL oral liquid 100 mg 100 mg feeding tube Daily ??? fluticasone furoate-vilanteroL (BREO ELLIPTA) 100-25 mcg/dose inhaler 1 puff 1 puff inhalation Daily (RT) ??? heparin 5,000 unit/mL injection 5,000 Units 5,000 Units subcutaneous Q8H MONET ??? metoprolol tartrate (LOPRESSOR) immediate release tablet 50 mg 50 mg feeding tube BID ??? miconazole (SECURA THICK) 2 % cream topical BID ??? erpdhsdm-cup-eogfcjn gluconate (CENTRUM) 0.6 mg iron/mL oral liquid 15 mL 15 mL feeding tube Daily ??? pantoprazole (PROTONIX) 4 mg/mL injection 40 mg 40 mg intravenous Daily ??? pravastatin (PRAVACHOL) tablet 40 mg 40 mg feeding tube Daily ??? ramelteon (ROZEREM) tablet 8 mg 8 mg feeding tube Nightly ??? senna 1.76 mg/mL syrup 8.8 mg 8.8 mg feeding tube BID ??? sodium chloride 0.9% flush 0.5-20 mL 0.5-20 mL intra-catheter Q8H MONET ??? terazosin (HYTRIN) capsule 10 mg 10 mg feeding tube Nightly ??? thiamine (VITAMIN B1) tablet 100 mg 100 mg feeding tube Daily ??? traZODone (DESYREL) tablet 100 mg 100 mg feeding tube Nightly Continuous Medications: Current Facility-Administered Medications Medication Dose Route Frequency Last Admin ??? dextrose 5% and Lactated Ringer's 50 mL/hr intravenous Continuous 50 mL/hr at 07/03/21 1109 PRN Medications: ??? acetaminophen, 650 mg, 650 mg at 06/18/21 0035 ??? albuterol, 1.25 mg ??? sodium chloride 0.9%, 0.5-20 mL, 10 mL at 06/25/21 0745 REVIEW OF SYSTEMS A complete review of symptoms could not be performed due to mental status. Objective PHYSICAL EXAM Vitals: 24 hr Min/Max: Temp Min: 36.3 ??C (97.3 ??F) Max: 36.7 ??C (98.1 ??F) Pulse Min: 52 Max: 98 BP Min: 124/75 Max: 165/107 Resp Min: 16 Max: 19 SpO2 Min: 91 % Max: 100 % Most Recent: Vitals: 07/03/21 0900 BP: 156/88 Pulse: 92 Resp: Temp: SpO2: 98% Height: 180.3 cm (5' 10.98 ) Weight: 90 kg (198 lb 6.6 oz) BMI (Calculated): 27.7 GENERAL: Appears stated age, sitting up comfortably in chair HEENT: NC/AT, sclera anicteric, oropharynx clear, MMM CV: regular rate and rhythm LUNGS: no increased work of breathing on room air ABDOMEN: soft, nontender, nondistended EXTREMITIES: warm and well-perfused, no edema, no deformities SKIN: warm and dry, no lesions or rashes. Cool extremities to shins/mid forearms but no peripheral edema. MENTAL STATUS: Awake, alert, oriented to person, city but not location (unaware thinking he is at home), year (thought it was 1969), and president (said Heron Barboza). unable to spell WORLD forward or backward. Unable to say days of week backwards or perform other complex mental tasks. Abstractionimpaired. LANGUAGE: Slowed. Answers with few words. Can follow simple but not complex commands. Reading not intact (dec BCVA per notes but could not test). Likely component of inability focus. CRANIAL NERVES: Visual acuity could not be tested due to mental status. Pupils 1mm (?minimally reactivity). No relative APD. unable to test VFs. Pt able to participate in some CN testing. Could not test EOMs d/t attention but facial sensation intact to light touch bilaterally. Facial movements fullwithout asymmetry. Hearing intact bilaterally. Palate raises symmetrically. No dysphonia. SCMs intact and symmetric. Pt could not understand shoulder shrug request. Tongue extends midline. MOTOR: Normal bulk and tone. Confrontational Strength Testing (grossly full as below but pt unable to participate with full exam) Right Left Deltoid 5 5 Bicep 5 5 Tricep 5 5 Wrist flexion 5 5 Wrist extension 5 5 Intrinsic hand 5 5 Psoas 5 5 Quad 5 5 Hamstring 5 5 Gastroc 5 5 Tibialis anterior 5 5 SENSORY: -- Light touch: intact and symmetric throughout with no extinction to double simultaneous stimulation -- Pinprick: intact and symmetric throughout -- Proprioception: unable to test d/t pt mental status/understanding -- Temperature: intact and symmetric throughout -- Romberg testing deferred REFLEXES: 2+ and symmetric throughout. No clonus. Plantar reflex down-going bilaterally. COORDINATION: No ataxia. GAIT: deferred. Lab/Radiology/Diagnostic Review: Laboratory Data Recent Labs Lab Units 07/03/21 0008 06/28/21222306/27/21 2145 WBC K/cumm 6.3 6.3 10.2* HEMOGLOBIN g/dL 11.9* 12.2* 11.7* HEMATOCRIT % 35.4* 34.5* 33.7* PLATELETS K/cumm 184 217 240 Recent Labs Lab Units 07/03/21 0008 07/02/21 2209 07/01/21 2235 06/29/21 2313 06/29/217 06/28/21 2224 SODIUM mmol/L 138 -- -- -- 135 137 POTASSIUM PLASMA mmol/L 4.3 -- -- -- 4.5 4.4 CHLORIDE mmol/L 106 -- -- -- 104 102 CO2 mmol/L 26 -- -- -- 24 26 BUN SERUM mg/dL 12 -- -- -- 17 18 CREATININE mg/dL 0.73* -- -- -- 0.99 0.98 GLUCOSE mg/dL 121 -- -- -- 70 90 POC GLUCOSE MONITOR mg/dL -- 112 111 < > -- -- CALCIUM mg/dL 9.1 -- -- -- 9.2 9.1 < > = values in this interval not displayed. No lab exists for component: LABALBU Lab Results Component Value Date HGBA1C 5.2 06/12/2021 , Lab Results Component Value Date LDLCALC 51 06/12/2021 Neuro Diagnostics: Results for orders placed or performed during the hospital encounter of 06/11/21 MRI Brain W WO Contrast Narrative EXAMINATION: Magnetic resonance imaging (MRI) of the brain and brainstem without and with contrast HISTORY: 71-year-old male with recent traumatic subarachnoid hemorrhage and intraventricular hemorrhage after a fall. TECHNIQUE: Multiplanar multi-weighted MRI of the brain and brainstem was performed without and with intravenous contrast using the general brain protocol. Contrast information: 15 mL Dotarem COMPARISON: 06/11/2021 FINDINGS: Study is limited due to motion artifact. Bilateral small amount of intraventricular hemorrhage layering in the occipital horns, not significantly changed compared with prior exam. There is mild cerebral volume loss with ex vacuo dilatation of ventricles. There are scattered T2/FLAIR hyperintensities in the periventricular and subcortical white matter, likely sequela of chronic ischemic small vessel disease. There are several areas of susceptibility including the right posterior temporal lobe, the right thalamus, and the anterior right superior frontal lobe. No evidence of acute cerebral infarct. No definite areas of abnormal contrast enhancement, however examination is limited due to motion artifact. The superior sagittal sinus demonstrates normal venous flow. The corpus callosum is normal in shape and signal intensity. The posterior fossa is unremarkable. The pituitary and sella are normal. The brainstem and craniocervical junction are unremarkable. There are bilateral lens replacements. Paranasal sinuses are unremarkable. Normal flow voids demonstrated in the carotid arteries and basilar artery. There are small bilateral mastoid effusions. Impression 1. Small amount of subarachnoid, intraventricular, and intraparenchymal hemorrhage as described above, grossly stable compared with prior exam. 2. No acute cerebral infarct or enhancing lesion. Dictated by: Eugene Patel M.D. The radiology attending physician has personally reviewed this study, and had reviewed and/or edited this written report and agrees with it. Electronically signed by: Alberto Cohen M.D. Continuous Video EEG Narrative Video-EEG Report Patient Name: Jania Redman [facility] Medical Record Number (MRN): [id number] [facility] Ed Record: [id number] Date of (): 1950 EEG Date: 06/12/2021 Ordering Provider: Katia Champion NP CC: Jean-Claude Salazar Start Time: 06/12/2021 6:52:33 PM End Time: 06/13/2021 1:13:15 PM Introduction: Mr. Redman is a 71 y.o. male with a history of afib on AC (99% burden on Holter 08/2020), HTN, HLD, HFpEF, COPD, alcohol use disorder, presenting with altered mental status after a fall concerning for seizures. EEG was performed to evaluate for seizures. This is a report of continuous video-EEG monitoring. High definition digital video and digital EEG were recorded continuously with a [employer] EEG acquisition system. This was a 32 channel EEG with additional anterior temporal electrodes. Electrodes were placed with collodion following the 10/20 International System. The patient was monitored and observed continuously by technical personnel. Digital seizure and spike detection were utilized during the recording. EEG Description: There was no well-developed posterior rhythm. The background consisted of bilateral, diffuse, asynchronous admixed theta and delta range activity with shifting predominance. The record showed variability. Hyperventilation and photic strobe stimulation were not performed. There were no focal, lateralized or epileptiform abnormalities. The EKG showed a normal rate and rhythm. Daily Video-EEG Description: Epoch 1: 06/12/2021 6:52:33 PM - 06/13/2021 1:13:15 PM The interictal EEG was as described above. There was a intermittent poorly formed about 7.5-8 Hz posterior rhythm as the recording progressed from this morning. There were no clinical or electrographic events. Interpretation: No seizures were captured in the recoding. The interictal EEG was abnormal due to moderate improved to mild to moderate generalized slowing. Generalized slowing indicates diffuse cerebral dysfunction as seen in metabolic, toxic, or diffuse or multifocal structural abnormalities. These findings were discussed with treating physicians on an at least daily basis. By signing this report, the attending Electroencephalographer certifies that he/she personally reviewed the electrodiagnostics study and has edited this report to fully conform with his/her intent. Signing Attending: Stevie Kevin MD PhD CT Head WO Contrast Narrative EXAMINATION: CT head without contrast HISTORY: 71-year-old man follow-up intracranial hemorrhage. TECHNIQUE: Noncontrast CT of the brain was performed with images acquired from skull base to vertex. COMPARISON: Comparison is made to a prior CT dated 06/15/2021. FINDINGS: There has been interval decrease in small volume intraventricular hemorrhage in the occipital horns of the lateral ventricles, right greater than left. There is no new acute intracranial hemorrhage. [...] fractures are identified. Atherosclerotic vascular calcifications are present. Small foci of gas are present in the cavernous sinus and in the soft tissues of the left face, which may be related to intravenous line injection. Impression Interval decrease in small volume intraventricular hemorrhage. No new acute intracranial hemorrhage. Dictated by: Jessika Candelario M.D. The radiology attending physician has personally reviewed this study, and had reviewed and/or edited this written report and agrees with it. Electronically signed by: Carlin Burris EEG Narrative Routine EEG Report Patient Name: Jania Redman [facility] Medical Record Number (MRN): [id number] [facility] Ed Record: [id number] Date of (): 1950 EEG Date: 06/15/2021 Ordering Provider: Digna Carter NP CC: Jean-Claude Salazar Start Time: 06/15/2021 6:56:29 AM End Time: 06/15/2021 7:18:22 AM Introduction: Mr. Redman is a 71 y.o. male with a history of A-fib, HTN, HLD, HFpEF, COPD, and alcohol abuse, who presented with altered mental status. EEG was performed to evaluate for seizures. This is a 32 channel EEG recording acquired on a [employer] EEG-1200 acquisition system. Scalp electrodes were placed according to the international 10-20 System. The analog EEG was filtered from 1-70 Hz and digitally sampled at 200 Hz. The record was then reformatted for review in bipolar and referential montages. EEG Description: There was excessive EMG and movement artifact during the recording. There was no well-developed posterior rhythm. The background consisted of bilateral, diffuse, asynchronous admixed theta and delta range activity. The record showed variability. Hyperventilation and photic strobe stimulation were not performed. There were no focal, lateralized or epileptiform abnormalities. Interpretation: The EEG was abnormal due to moderate generalized slowing. Generalized slowing indicates diffuse cerebral dysfunction as seen in metabolic, toxic, or diffuse or multifocal structural abnormalities. By signing this report, the attending Electroencephalographer certifies that he/she personally reviewed the electrodiagnostics study and has edited this report to fully conform with his/her intent. Signing Attending: Eitan Mendoza MD PhD Assessment /Plan ASSESSMENT AND PLAN Mr. Redman is a 71 y.o. 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 Given pt's age and underlying brain atrophy, his recovery from TBI of this severity would be expected to be prolonged (on the order of weeks). Furthermore, his cognition is likely confounded in the acute setting due to ICU delirium. Since transfer to the floor, his AMS has significantly improved wointervention per nursing staff. The most likely etiology of his AMS is post-concussive syndrome with hospital- associated delirium and SAH/IPH/IVH in a patient with underlying severe brain atrophy and advanced age. Recommend watchful waiting with strict delirium precautions. Recommendations: 1. DELIRIUM PRECAUTIONS: Patient should have window bed if possible. Please minimize night time interruptions, including night time vital signs or PRN medications. Please keep room dark and night. Please keep room well-lit, with window shades open during the day. 2. If his mental status worsens again would be reasonable to consider repeat infectious workup withUA+Ucx, CXR, CBC and repeat routine EEG. Improvement during episode of delirium and/or toxic-metabolic encephalopathy: The timeline of improvement while treating the underlying causes of either delirium and/or toxic-metabolic encephalopathyvaries and is highly dependent on the underlying cause and on the underlying structural integrity of the brain in each individual patient (e.g., a patient with known neurodegenerative disease would be expected to recover at a slow rate compared to a patient without an underlying structural abnormality of the brain). The process of recovery can be slow, typically taking multiple days to weeks to see slow, gradual improvement. Over time (days to weeks), however, patients should begin to show clinical signs of improvement as the underlying etiology is treated/corrected and strict delirium precautions are used. It should be noted, however, that improvement in mental status typically lags behindtreatment/correction of the underlying etiology by a few days. Please continue to strictly follow the delirium precautions outlined in the consult note. Thank you for this consult. Please do not hesitate to contact us with any questions or concerns. Neurology consults will sign off. If you have any questions or need re-evaluation in the interim, please contact neurology consults at [phone] (senior) and specify that this consult was staffed with Consult Team A. Girma Mcleod M.D. PGY-3 Cosigned by Brijesh Conley MD at 07/03/2021 7:37 PM CDT Associated attestation - Brijesh Conley MD - 07/03/2021 7:37 PM CDT I have seen and examined the patient on 07/03/21. I agree with the findings and plan of care as documented in the resident's/fellow's note.. 71M with fall and IVH/SAH/IPH, persistent encephalopathy. He appears to be improving slowly over the last several days per reports from nursing staff. Exam today is reassuring and does not appear concerning for seizure, post-ictal state, or to have any new focal deficits. In someone of this age with a brain injury, recovery can take months and he may never fully reach his previous baseline. Giventhe upward trajectory, no further neurological workup for this is needed at this time. * Shayla Cardenas, TEXTILE MACHINE MAINTENANCE MECHANIC - 06/30/2021 4:40 PM CDTAssociated Order(s): CONSULT TO PM&R PHYSICIAN Patient Name: JANIA REDMAN Medical Record Number (MRN): [id number] Date of (): 1950 Encounter Date: 06/11/2021 Date of Service: 06/30/21 Physical Medicine and Rehabilitation Consultation Requesting Service: Geriatric Trauma Reason for Consultation: PM&R Recommendations Date of Consultation: 06/29/2021 Chief Complaint Traumatic SAH/IVH/IPH Encephalopathy HPI The following history was obtained from the patient/caregiver, the available medical record, and discussion with the primary team. 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 He was reportedly reaching for something and lost his balance, +head strike and LOC. 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 He initially presented to [facility] 06/08, where he was evaluated for possible syncopal episodes. There were reported involuntary movements and n ystagmus and he was loaded with Keppra and planned for EEG. He was started on CIWA protocol w/ librium. MRI revealed SAH, IVH and small IPH, and he was transferred to [facility] for NSGY consult. At [facility] after transfer he was noted to have worsening of following commands, more somnolent following Ativan administration for high CIWA score. He is reportedly A&O x 1 at baseline. He was also treated for scrotal infection and completed ABX and antifungals. An NG tube was placed but this was pulled out by patient 06/29. He continued to have poor PO intake and was taken on 06/30 for NG tube SBFT. Subjective: Patient was not available for exam on rounds, as he was off the floor to have SBFT placed. Discussed patient with primary/consulting team. They feel patient has not been receiving adequate nutrition and this may be contributing to weakness and not participating fully with therapy. PM&R will plan to see patient next week 07/03 for full evaluation. Recs given below in the interim for sleep, delirium, and agitation. Physical therapy recs for SNF, while OT recs for IRF. No outpatient medications have been marked as taking for the 06/11/21 encounter (Hospital Encounter). Current Facility-Administered Medications Medication Dose Route Frequency Provider Last Rate Last Admin ??? acetaminophen (TYLENOL) tablet 650 mg 650 mg feeding tube Q4H PRN Cassie Trent NP 650mg at 06/18/21 0035 ??? albuterol 2.5 mg/0.5 mL nebulizer solution 1.25 mg 1.25 mg nebulization Q6H PRN (RT) Jair Jay MD ??? dextrose 5% and Lactated Ringer's infusion 50 mL/hr intravenous Continuous Elizabeth Persaud NP 50 mL/hr at 06/30/21 0621 50 mL/hr at 06/30/21 06 ??? docusate (COLACE) 10 mg/mL oral liquid 100 mg 100 mg feeding tube Daily Sada العلي NP 100 mg at 06/29/21 0946 ??? heparin 5,000 unit/mL injection 5,000 Units 5,000 Units subcutaneous Q8H MONET Cassie Trent NP 5,000 Units at 06/30/21 0615 ??? metoprolol tartrate (LOPRESSOR) immediate release tablet 50 mg 50 mg feeding tube BID Jair Jay MD 50 mg at 06/30/2128 ??? miconazole (SECURA THICK) 2 % cream topical BID Andreia Ellis MD Given at 06/30/21 0931 ??? suqlatnn-hjl-rmcmyuu gluconate (CENTRUM) 0.6 mg iron/mL oral liquid 15 mL 15 mL feeding tube Daily Cassie Trent NP 15 mL at 06/30/21927 ??? pantoprazole (PROTONIX) 4 mg/mL injection 40 mg 40 mg intravenous Daily Mily Cuevas NP 40 mg at 06/30/21 0913 ??? pravastatin (PRAVACHOL) tablet 40 mg 40 mg feeding tube Daily Cassie Trent, GARIMA 40 mg at 06/30/21 0928 ??? ramelteon (ROZEREM) tablet 8 mg 8 mg feeding tube Nightly Migueltelly Tamiko Ryann, GARIMA 8 mg at 06/29/21 1745 ??? senna 1.76 mg/mL syrup 8.8 mg 8.8 mg feeding tube BID Sada العلي NP 8.8 mg at 06/29/212114 ??? sodium chloride 0.9% flush 0.5-20 mL 0.5-20 mL intra-catheter Q8H MONET Belinda Shaffer MD PhD 10 mL at 06/30/21 0616 ??? sodium chloride 0.9% flush 0.5-20 mL 0.5-20 mL intra-catheter PRN Belinda Shaffer MD PhD 10 mL at 06/25/21 0745 ??? terazosin (HYTRIN) capsule 10 mg 10 mg feeding tube Nightly Ciarra Jama, GARIMA 10 mg at 06/29/212112 ??? thiamine (VITAMIN B1) tablet 100 mg 100 mg feeding tube Daily Jair Jay MD 100mg at 06/30/21926 ??? traZODone (DESYREL) tablet 100 mg 100 mg feeding tube Nightly Ciarra Jama NP 100 mg at 06/29/212114 Allergies Allergen Reactions ??? Penicillins Hives Patient Active Problem List Diagnosis ??? Hypercholesterolemia ??? Hypertension ??? Heartburn ??? Intra-abdominal abscess (CMS/HCC) (HCC) ??? DVT (deep venous thrombosis) (CMS/HCC) (HCC) ??? Cholecystitis ??? Atrial fibrillation (CMS/HCC) (HCC) ??? Chronic systolic heart failure (CMS/HCC) (HCC) ??? TBI (traumatic brain injury) (CMS/HCC) (HCC) ??? SAH (subarachnoid hemorrhage) (CMS/HCC) (HCC) ??? Encephalopathy ??? Acute delirium ??? Scrotal abscess ??? Closed fracture of trochanter of left femur (CMS/HCC) (HCC) ??? Dysphagia ??? Orthostatic hypotension ??? Acute respiratory failure (HCC) Past Medical History: Diagnosis Date ??? [...] ??? Anesthesia problems Neg Hx Social History Socioeconomic History ??? Marital status: Spouse name: Not on file ??? Number of children: Not on file ??? Years of education: Not on file ??? Highest education level: Not on file Occupational History ??? Not on file Tobacco Use ??? Smoking status: Current Every Day Smoker Packs/day: 1.00 Types: Cigarettes Start date: 1965 ??? Smokeless tobacco: Never Used Vaping Use ??? Vaping Use: Never used Substance and Sexual Activity ??? Alcohol use: Yes Comment: limited ??? Drug use: Yes Types: Alcohol Comment: Reportedly 3 shots of Tequila/day ??? Sexual activity: Defer Other Topics Concern ??? Not on file Social History Narrative Cigarette smoker : (Added by TW Conv) Social Determinants of Health Financial Resource Strain: Unknown ??? Difficulty of Paying Living Expenses: Patient refused Food Insecurity: No Food Insecurity ??? Worried About Running Out of Food in the Last Year: Never true ??? Ran Out of Food in the Last Year: Never true Transportation Needs: No Transportation Needs ??? Lack of Transportation (Medical): No ??? Lack of Transportation (Non-Medical): No Physical Activity: Not on file Stress: Not on file Social Connections: Socially Isolated ??? Frequency of Communication with Friends and Family: Never ??? Frequency of Social Gatherings with Friends and Family: Never ??? Attends Pentecostal Services: Never ??? Active Member of Clubs or Organizations: No ??? Attends Club or Organization Meetings: Never ??? Marital Status: Intimate Partner Violence: Not on file Housing Stability: Low Risk ??? Unable to Pay for Housing in the Last Year: No ??? Number of Places Lived in the Last Year: 1 ??? Unstable Housing in the Last Year: No Living Situation: -Lives With: Raine; daughter Latha available for support -Contact: , Raine Redman; phone [phone] Pre-hospitalization Function Unable to determine pre-hospitalization function from chart Current Functional Status Current Therapy Evaluations: OT 06/30 Grooming edge of bed mos assist LE dressing max assist Toileting supine dependent with bedpan Bed mobility supine <> rolling max assist Supine <> edge of bed max assist x 2 Transfers not attempted PT 06/28 A&O x 1 Resisted sit to stand, pushes posterior COTTAGE CHEESE MAKER 06/29 Dysphagia 1, NPO liquids, meds crushed w/ puree Recommendation/Plan PT Recommendation/Plan: Half-Way Facility PT Recommendation/Plan Comments: SNF pending activity tolerance PT Frequency: 3-5x/wk Treatment/Interventions: Balance Training; Bed mobility; Endurance training; Functional activity; Functional transfer training; Gait training; Neuromuscular re-education; Stair training; Strengthening; Therapeutic activity; Therapeutic exercise; Transfer training PT - Next Appointment: 06/30/21 PT Evaluation Complete: Yes Review of Systems 10 point ROS negative except as above per HPI. Vital Signs Vitals: 06/30/21 1016 06/30/21 1049 06/30/21 1150 06/30/21 1544 BP: 99/65 100/65 113/69 117/83 BP Location: Left arm Left arm Left arm Right arm Patient Position: Lying;HOB 30 degrees Lying;HOB 30 degrees Lying Lying;HOB 30 degrees Pulse: 85 78 92 87 Resp: 18 16 Temp: 36.4 ??C (97.5 ??F) 36.4 ??C (97.5 ??F) TempSrc: Oral Oral SpO2: 94% 95% 96% 94% Weight: Height: Physical Exam Patient off floor, unable to complete exam at this time. 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 He was reportedly reaching for something and lost his balance, +head strike and LOC. 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 He initially presented to [facility] 06/08, where he was evaluated for possible syncopal episodes. There were reported involuntary movements and n ystagmus and he was loaded with Keppra and planned for EEG. He was started on CIWA protocol w/ librium. MRI revealed SAH, IVH and small IPH, and he was transferred to [facility] for NSGY consult. At [facility] after transfer he was noted to have worsening of following commands, more somnolent following Ativan administration for high CIWA score. He is reportedly A&O x 1 at baseline. He was also treated for scrotal infection and completed ABX and antifungals. An NG tube was placed but this was pulled out by patient 06/29. He continued to have poor PO intake and was taken on 06/30 for NG tube SBFT. Plan # Medical Plan: Per primary team. # Functional Impairments: -Recommend sitting up out of bed for at least 3 hours at a time, BID. Patient should have the physical endurance and arousal level to tolerate this level of activity in order to be considered for acute rehabilitation. # Pain: -Continue to monitor and address accordingly as pain may limit ability to participate with therapies. -Use minimum amount of narcotics to achieve effective pain relief. -Please consider use of modalities (ie. Ice, heat), and/or topical medications (ie. Lidocaine cream/aspercreme) to achieve pain relief. # Sleep: -Continue to monitor the patient???s sleep wake cycle (ie. sleep log if possible) and ensure they are receiving adequate sleep as this is important for recovery and for rehabilitation efforts. -Use appropriate diurnal cues (ie. Lighting, bed positioning, elimination of electronic devices) and minimize disruptions during sleeping hours as much as possible. -Agree with current Ramelteon 8 mg QHS scheduled and trazodone 100 mg QHS. Can titrate trazodone to150 mg if medially tolerated # Agitation/Motor Restlessness: -Continue to provide low-stimulation environment (ie. limit number of visitors, keep room quiet as much as possible) -Please try to avoid haldol and benzodiazepines if possible # Bowel/Bladder: -Please ensure adequate bowel movements, particularly if patient is using an appreciable amount of narcotic pain medications. -Please consider obtaining PVRs to assess for urinary retention # Skin Care/Hygiene: -Skin breakdown precautions due to prolonged hospitalization/significant amount of time in bed. -Recommend pressure relief when out of bed, with patient education to perform pressure relief every30 minutes. -Recommend turning patient while in bed every 2 hours to prevent development of pressure sores/ulcers. -Recommend adequate nutritional intake to provide for adequate healing. # FEN/GI: -Please ensure adequate nutrition and consider nutrition consult as indicated # DVT PPX: -Per primary team. # DISPOSITION RECOMMENDATIONS: To be an appropriate acute inpatient rehabilitation candidate, the patient should (1) be medically appropriate in order to clinically tolerate a minimum of 3 hours/day at least 5 days/week due to intensity of acute inpatient therapies, (2) demonstrate enough cognitive carryover to ensure that therapies will be effective with subsequent treatments, (3) demonstrate enough endurance to tolerate 3 hours/day at least 5 days/week of intensive multidisciplinary therapies, (4) be able and willing to participate with therapies, and (5) have adequate social support and reasonable and safe anticipated discharge plan in place prior to being admitted for acute inpatient rehabilitation. -General Therapy/Rehabilitation-Related Recommendations: -Recommend patient be sitting upright 3 hours BID, but with adequate pressure relief -Continue to have patient evaluated by PT, OT, and COTTAGE CHE[employer] MAKER -Recommend Neuro and COTTAGE CHEESE MAKER cognition evaluation for further COTTAGE CHEESE MAKER cognitive therapy planning -Patient would need to be restraint/sitter free before admission to IRF, if this is considered -Discussed patient with primary team today on rounds. Patient unable to be formally assessed as he is having feeding tube placed for meeting nutritional needs. PM&R will see patient for formal evaluation next week, 07/03/21. -PT and OT are continuing to evaluate patient for discharge recs. On review of current available therapy notes, patient would not be a candidate for IRF at this time d/t level of ability to participate in and function with therapies. He is also not medically able to tolerate intensity of acute inpatient therapies as outlined above. At this current time patient would be more appropriate for SNF/LTC. However, patient's current medical co-morbidities are being continuously monitored by the primary/consult teams. Patient will have SBFT placed 06/30, with hopes this will improve patient's ability to participate in therapy with increased nutrition. We will see patient 07/03/21 for formal evaluationas well as follow peripherally. Thank you for this consult and for your consideration of the above recommendations. For questions or concerns, please call the PM&R Consult service at . Shayla Cardenas, MSN, PRESIDENT & FOUNDER, AGNP-C Adult-Gerontology Nurse Practitioner-Certified Physical Medicine & Rehabilitation [facility] in [place] Cosigned by Analisa Causey MD at 07/01/2021 11:15 AM CDT * Oneyda Mathews RD - 06/28/2021 10:19 AM CDT Nutrition Tube Feeding Assessment Reason for Assessment: follow-up Encounter Date: 06/28/21 11:03 AM Patient is a 71 y.o. male LOS is 17 days. HPI: HTN/HL, a-fib on Eliquis, HFrEF (45-50% EF 2020), COPD not on home O2, legally blind, hearing loss,Ccy p/w trace tSAH and IVH following a fall. Admitted OSH with altered LOC. Tx to [facility]GY service 06/11 where has remained encephalopathic. Allergies Allergen Reactions ??? Penicillins Hives Anthropometrics: Wt Readings from Last 3 Encounters: 06/28/21 90 kg (198 lb 6.6 oz) 06/24/21 85.8 kg (189 lb 2.5 oz) 06/18/21 85.8 kg (189 lb 2.5 oz) Anthropometrics Weight: 90 kg (198 lb 6.6 oz) Admission Weight : 80.9 kg Weight Change: 4.20 kg (9.25 lbs) IBW/kg (Calculated) : 78 kg Height: 180.3 cm (5' 10.98 ) Weight in (lb) to have BMI = 25: 178.8 BMI (Calculated): 27.7 Nutrition Needs Calculations: Calculated Energy Needs Using Equations Weight Used for Equation Calculations (RD Determined): 85.8 kg (189 lb 2.5 oz) Weight: 90 kg (198 lb 6.6 oz) Height: 180.3 cm (5' 10.98 ) Minute Ventilation (L/min): 6.6 L/min Estimated Protein Needs Type of Weight Used for Estimated Protein : [place] Protein Needs Based on g/k.2 Total Protein Estimated Needs (gm): 93.6 Kcal/kg Type of Weight Used for Estimated Kcals: Current Kcal/k Total Kcal/kg Estimated Needs : 5 Height: 180.3 cm (5' 10.98 ) Weight: 90 kg (198 lb 6.6 oz) Weight Change: 4.20 kg (9.25 lbs) Medications: Scheduled Meds: docusate, 100 mg, feeding tube, Daily heparin, 5,000 Units, subcutaneous, Q8H MONET metoprolol tartrate, 50 mg, feeding tube, BID metroNIDAZOLE, 500 mg, feeding tube, Q8H MONET miconazole, , topical, BID zvnyaslr-bvu-dfvyvur gluconate, 15 mL, feeding tube, Daily pantoprazole, 40 mg, intravenous, Daily pravastatin, 40 mg, feeding tube, Daily QUEtiapine, 12.5 mg, oral, Once ramelteon, 8 mg, feeding tube, Nightly senna, 8.8 mg, feeding tube, BID sodium chloride 0.9%, 0.5-20 mL, intra-catheter, Q8H MONET sodium chloride 0.9%, 0.5-20 mL, intra-catheter, Q8H MONET sulfamethoxazole-trimethoprim, 320 mg of trimethoprim, feeding tube, BID terazosin, 10 mg, feeding tube, Nightly thiamine, 100 mg, feeding tube, Daily traZODone, 100 mg, feeding tube, Nightly sodium chloride 0.9%, 75 mL/hr, Last Rate: 75 mL/hr (06/28/21 0584) Lab Review: Sodium Date Value Ref Range Status 06/27/2021 133 (L) 135 - 145 mmol/L Final Potassium, pl Date Value Ref Range Status 06/27/2021 4.7 3.3 - 4.9 mmol/L Final Comment: Hemolyzed; Potassium value may be falsely elevated by as much as 0.3-0.5 mmol/L. Suggest redraw andreanalysis. BUN Date Value Ref Range Status 06/27/2021 20 8 - 25 mg/dL Final Creatinine Date Value Ref Range Status 06/27/2021 0.95 0.80 - 1.30 mg/dL Final Magnesium Date Value Ref Range Status 06/27/2021 2.2 1.4 - 2.5 mg/dL Final Calcium Date Value Ref Range Status 06/27/2021 9.4 8.5 - 10.3 mg/dL Final Lab Results Component Value Date HGBA1C 5.2 06/12/2021 Nursing Assessment: Intake/Output Summary (Last 24 hours) at 06/28/2021 1103 Last data filed at 06/28/2021 1000 Gross per 24 hour Intake 532.5 ml Output 600 ml Net -67.5 ml Gastrointestinal Gastrointestinal (WDL): Exceptions to WDL Abdomen Inspection: Soft Bowel Sounds (All Quadrants): Active Palpation: Soft Last BM Date: 06/28/21 Passing Flatus: Yes GI Symptoms: Diarrhea Relieved by: Unrelieved (Comment) Gastrointestinal Additional Assessments: No Last BM Date: 06/28/21 Lew Scale Score: 15 Skin Integrity: Redness Dietary Orders (From admission, onward) Start Ordered 06/26/211657 Adult Diet Restricted; Dysphagia 1 (pureed); No Liquid Diet effective now Question Answer Comment ([facility]) Diet type Restricted Modified Consistency: Dysphagia 1 (pureed) Fluid Consistency: No Liquid 06/26/211656 Impression: Pt answers some diet questions. He states he did eat breakfast this am but is unable to report whathe ate. Pt passed swallow eval. Now on pureed diet, not eating well. Ate a couple of bites this am per nurse.TF off. Plan is to see if he has an appetite. If poor po, plan is to restart TF. TF 729 Diet: pureed, no liquids. PO intake bites, 0% recorded in flowsheet 06/27 bm-medium, soft Skin- Pt has a small, recurrent abscess on L-scrotum, abrasion r-knee, blanchable redness on buttocks Wt Readings from Last 10 Encounters: 06/28/21 90 kg (198 lb 6.6 oz) 06/24/21 85.8 kg (189 lb 2.5 oz) 06/18/21 85.8 kg (189 lb 2.5 oz) 01/25/21 91.6 kg (202 lb) 07/16/20 87.1 kg (192 lb) 07/11/20 86.6 kg (190 lb 14.7 oz) 06/15/20 85.3 kg (188 lb) 02/22/20 88 kg (194 lb 0.1 oz) 01/04/20 78 kg (172 lb) 12/28/19 76.7 kg (169 lb 3.2 oz) 06/28 weight change likely d/t fluid NUTRITION DIAGNOSIS Nutrition Diagnosis 1: Inadequate oral intake Related to: Lack of interest Evidenced by: PO under 50% INTERVENTION If TF to meet 100% estimated nutrition needs, Jevity 1.5 @ 60 ml/hr TF at goal rate provides 2160 calories (25 calories/kg), 91 gm PRO (1.2 gm/kg/IBW), 1094 ml free water. TF off 06/27 729 If NOC TF, Jevity 1.5 @ 80 ml/hr 8 p - 8a 1440 veronica (67% estimated nutrition needs) 61 g prot (65% protein needs)730 ml free water. Flush per team. Monitor electrolytes replete PRN. Start 3-day calorie count Send Ensure pudding on trays = 510 veronica, 12 g protein GOAL(S) / MONITORING: Goals: Oral intake to meet 75% estimated nutritional needs by next assessment Interventions: Calorie count, Medical food supplement, Other (comment) (possibly restart TF) Monitoring and Evaluation: Appetite, Labs, PO intake, Stool patterns Oneyda Mathews RD, LD Weekend / Consult [phone] * Andreas Gonzalez MD - 06/24/2021 9:00 PM CDT [facility] Trauma Surgery Tertiary Exam Jania Redman was admitted for these injuries found on primary and secondary survey Patient Active Problem List Diagnosis ??? Hypercholesterolemia ??? Hypertension ??? Heartburn ??? Intra-abdominal abscess (CMS/HCC) (HCC) ??? DVT (deep venous thrombosis) (CMS/HCC) (HCC) ??? Cholecystitis ??? Atrial fibrillation (CMS/HCC) (HCC) ??? Chronic systolic heart failure (CMS/HCC) (HCC) SAH Left trochanter fracture 71 y.o. year-old male on Eliquis (last 06/08) with past medical history of hypertension, hyperlipidemia, CHF, COPD, atrial fibrillation, legally blind, and alcohol use who presented after a fall to an outside hospital who was subsequently transferred to our hospital to the [facility] for further evaluation management. Briefly the patient had a fall with loss of consciousness and hit his head 3 days ago. Per outside hospital records the patient had 3 homemade Aby is prior to the fall. A noncontrasthead CT was obtained which was negative for intracranial hemorrhage. [facility] in the occipital horns. Brief hospital course 06/11 Admitted. HCT with stable ventricular size, small IVH in occipital horns. 06/12: TTSDU, then TTICU for persistently depressed mental status. Repeat head CT stable. Metop for Afib w RVR. Started on high dose thiamine. EEG negative, planning for continuous. 06/13 placed on amio gtt for afib w/ RVR; cEEG d/c'd; TTE wnl 06/14 brain MRI w stable small SAH/IVH, no other infarct/lesion. Hypoxemia and desaturation, intubated overnight, HCT stable. 06/15 cEEG w/ mod gen slowing 3.13 CT pelvis w/ left small nondisplaced greater trochanter fracture 3 Ortho- WBAT LLE, no need for MRI unless pain w ambulation, s/o. Review of Systems: Unable to obtain given altered mental status According to the nurse passing gas and having bowel movenets Temp: [35.7 ??C (96.3 ??F)-37.3 ??C (99.1 ??F)] 36.7 ??C (98.1 ??F) Pulse: [67-116] 116 Resp: [15-26] 26 BP: (91-149)/(53-121) 133/121 FiO2 (%): [40 %] 40 % Physical Exam: HEENT: Mucous membranes moist, poor dentition. Sclera anicteric. Cardiac: Irregularly irregular. A-fib. No M/R/G. Pulmonary: Even, unlabored respirations. Symmetric chest rise and fall. Coarse throughout. Abdomen: Rounded but non-distended in appearance, hypoactive bowel sounds, soft/non-tender to palpation. Skin: Warm and dry. Mental Status Eyes open to verbal call, poor attention span, regards, followed simple commands, Oriented self only Perfusion: Capillary Refill: <2 sec Color: normal, no cyanosis, jaundice, pallor or bruising Assessment and Plan: 71 y.o. year-old male on Eliquis (last 06/08) with past medical history of hypertension, hyperlipidemia, CHF, COPD, atrial fibrillation, legally blind, and alcohol use who presented after a fall to an outside hospital. Injuries include a SAH and a non-op greater trochanter fracture. Work up has included multiple head CT, CXR, PXR, and Pelvic CT. Not having any abdominal pain and abdomen soft. No further work up from the trauma surgery standpoint, but appropriate to transfer to [facility] in the AM. Plan -Ok to to transfer to [facility] primary when leaves the NICU Cosigned by Vy Morejon MD at 06/29/2021 3:04 PM CDT Associated attestation - Vy Morejon MD - 06/29/2021 3:04 PM CDT I have seen and examined the patient on 06/24/2021. I agree with the findings and plan of care as documented in the resident's/fellow's note.. * Oneyda Mathews, RD - 06/23/2021 6:29 PM CDT Nutrition Tube Feeding Assessment Reason for Assessment: follow-up Encounter Date: 06/23/21 6:29 PM Patient is a 71 y.o. male LOS is 12 days. HPI: HTN/HL, a-fib on Eliquis, HFrEF (45-50% EF 2020), COPD not on home O2, legally blind, hearing loss,Ccy p/w trace tSAH and IVH following a fall. Admitted OSH with altered LOC. Tx to [facility] NSGY service 06/11 where has remained encephalopathic. Allergies Allergen Reactions ??? Penicillins Hives Anthropometrics: Wt Readings from Last 3 Encounters: 06/12/21 85.8 kg (189 lb 2.5 oz) 06/18/21 85.8 kg (189 lb 2.5 oz) 01/25/21 91.6 kg (202 lb) Anthropometrics Weight: 85.8 kg (189 lb 2.5 oz) Admission Weight : 80.9 kg Weight Change: 4.90 kg (10.80 lbs) IBW/kg (Calculated) : 78 kg Height: 180.3 cm (5' 10.98 ) Weight in (lb) to have BMI = 25: 178.8 BMI (Calculated): 26.4 Nutrition Needs Calculations: Calculated Energy Needs Using Equations Weight Used for Equation Calculations (RD Determined): 85.8 kg (189 lb 2.5 oz) Weight: 85.8 kg (189 lb 2.5 oz) Height: 180.3 cm (5' 10.98 ) Minute Ventilation (L/min): 6.6 L/min Estimated Protein Needs Type of Weight Used for Estimated Protein : [place] Protein Needs Based on g/k.2 Total Protein Estimated Needs (gm): 93.6 Kcal/kg Type of Weight Used for Estimated Kcals: Current Kcal/k Total Kcal/kg Estimated Needs : 2145 Height: 180.3 cm (5' 10.98 ) Weight: 85.8 kg (189 lb 2.5 oz) Weight Change: 4.90 kg (10.80 lbs) Medications: Scheduled Meds: heparin, 5,000 Units, subcutaneous, Q8H MONET metoprolol tartrate, 50 mg, feeding tube, BID metroNIDAZOLE, 500 mg, feeding tube, Q8H MONET xlqbrvdd-gar-rtaepcl gluconate, 15 mL, feeding tube, Daily pantoprazole, 40 mg, intravenous, Daily pravastatin, 40 mg, feeding tube, Daily ramelteon, 8 mg, feeding tube, Nightly sodium chloride 0.9%, 0.5-20 mL, intra-catheter, Q8H MONET sodium chloride 0.9%, 0.5-20 mL, intra-catheter, Q8H MONET sulfamethoxazole-trimethoprim, 320 mg of trimethoprim, feeding tube, BID terazosin, 10 mg, feeding tube, Nightly thiamine, 100 mg, feeding tube, Daily traZODone, 100 mg, feeding tube, Nightly Lab Review: Sodium Date Value Ref Range Status 06/22/2021 138 135 - 145 mmol/L Final Potassium, pl Date Value Ref Range Status 06/22/2021 4.6 3.3 - 4.9 mmol/L Final BUN Date Value Ref Range Status 06/22/2021 14 8 - 25 mg/dL Final Creatinine Date Value Ref Range Status 06/22/2021 0.84 0.80 - 1.30 mg/dL Final Magnesium Date Value Ref Range Status 06/22/2021 2.3 1.4 - 2.5 mg/dL Final Calcium Date Value Ref Range Status 06/22/2021 9.3 8.5 - 10.3 mg/dL Final Lab Results Component Value Date HGBA1C 5.2 06/12/2021 Nursing Assessment: Intake/Output Summary (Last 24 hours) at 06/23/2021 1829 Last data filed at 06/23/2021 1700 Gross per 24 hour Intake 1710 ml Output 1275 ml Net 435 ml Gastrointestinal Gastrointestinal (WDL): Exceptions to WDL Abdomen Inspection: Soft, Nondistended Bowel Sounds (All Quadrants): Active Palpation: Soft, No guarding Last BM Date: 06/21/21 Passing Flatus: Yes GI Symptoms: Diarrhea Relieved by: Unrelieved (Comment) Gastrointestinal Additional Assessments: No Last BM Date: 06/21/21 Lew Scale Score: 16 Skin Integrity: Cracking Dietary Orders (From admission, onward) Start Ordered 06/22/21 1103 Diet, Tube Feeding No Tray Jevity 1.5 veronica (NGT); 60; 100; Water; Every 6 hours Diet effective now Question Answer Comment Tube Feeding Formula: Jevity 1.5 veronica NGT Tube Feeding Continuous (mL/hr): 60 Tube Feeding Flush (mL): 100 Flush Type: Water Flush Frequency: Every 6 hours 06/22/21 1107 Impression: Jevity 1.5 @ goal 60 ml/hr, tolerating. No residuals. Pt did not pass bedside swallow, to have MBS 06/24 3 + bm Spoke with nurse regarding skin alterations. Pt has a small, recurrent abscess on L-scrotum, abrasion r-knee, blanchable redness on buttocks Wt Readings from Last 10 Encounters: 06/12/21 85.8 kg (189 lb 2.5 oz) 06/18/21 85.8 kg (189 lb 2.5 oz) 01/25/21 91.6 kg (202 lb) 07/16/20 87.1 kg (192 lb) 07/11/20 86.6 kg (190 lb 14.7 oz) 06/15/20 85.3 kg (188 lb) 02/22/20 88 kg (194 lb 0.1 oz) 01/04/20 78 kg (172 lb) 12/28/19 76.7 kg (169 lb 3.2 oz) NUTRITION DIAGNOSIS Nutrition Diagnosis 1: Inadequate oral intake Related to: NPO status Evidenced by: Need for full tube feeding INTERVENTION Continue Jevity 1.5 at 60 ml/hr. TF at goal rate provides 2160 calories (25 calories/kg), 91 gm PRO (1.2 gm/kg/IBW), 1094 ml free water. Flush per team. Monitor electrolytes replete PRN. Follow aspiration precautions. GOAL(S) / MONITORING: Goals: Tolerance of enteral feeding at goal rate Interventions: Enteral nutrition administration Monitoring and Evaluation: Labs, I/O, TF tolerance, Stool patterns Oneyda Mathews RD, LD Weekend / Consult [phone] * Oneyda Mathews RD - 06/20/2021 2:10 PM CDT Nutrition Tube Feeding Assessment Reason for Assessment: follow-up Encounter Date: 06/20/21 2:10 PM Patient is a 71 y.o. male LOS is 9 days. HPI: HTN/HL, a-fib on Eliquis, HFrEF (45-50% EF 2020), COPD not on home O2, legally blind, hearing loss,Ccy p/w trace tSAH and IVH following a fall. Admitted OSH with altered LOC. Tx to [facility] NS[facility] service 06/11 where has remained encephalopathic. Allergies Allergen Reactions ??? Penicillins Hives Anthropometrics: Wt Readings from Last 3 Encounters: 06/12/21 85.8 kg (189 lb 2.5 oz) 06/18/21 85.8 kg (189 lb 2.5 oz) 01/25/21 91.6 kg (202 lb) Anthropometrics Weight: 85.8 kg (189 lb 2.5 oz) Admission Weight : 80.9 kg Weight Change: 4.90 kg (10.80 lbs) IBW/kg (Calculated) : 78 kg Height: 180.3 cm (5' 10.98 ) Weight in (lb) to have BMI = 25: 178.8 BMI (Calculated): 26.4 Nutrition Needs Calculations: Calculated Energy Needs Using Equations Weight Used for Equation Calculations (RD Determined): 85.8 kg (189 lb 2.5 oz) Weight: 85.8 kg (189 lb 2.5 oz) Height: 180.3 cm (5' 10.98 ) Minute Ventilation (L/min): 6.6 L/min Estimated Protein Needs Type of Weight Used for Estimated Protein : [place] Protein Needs Based on g/k.2 Total Protein Estimated Needs (gm): 93.6 Kcal/kg Type of Weight Used for Estimated Kcals: Current Kcal/k Total Kcal/kg Estimated Needs : 2144 Height: 180.3 cm (5' 10.98 ) Weight: 85.8 kg (189 lb 2.5 oz) Weight Change: 4.90 kg (10.80 lbs) Medications: Scheduled Meds: amiodarone, 200 mg, feeding tube, Daily furosemide, 20 mg, feeding tube, Daily heparin, 5,000 Units, subcutaneous, Q8H MONET metoprolol tartrate, 25 mg, feeding tube, Q6H metroNIDAZOLE, 500 mg, feeding tube, BID xkvygmhu-dss-jtypeli gluconate, 15 mL, feeding tube, Daily [START ON 06/21/2021] pantoprazole, 40 mg, intravenous, Daily pravastatin, 40 mg, feeding tube, Daily sodium chloride 0.9%, 0.5-20 mL, intra-catheter, Q8H MONET sodium chloride 0.9%, 0.5-20 mL, intra-catheter, Q8H MONET sulfamethoxazole-trimethoprim, 320 mg of trimethoprim, feeding tube, BID terazosin, 20 mg, feeding tube, Nightly Lab Review: Sodium Date Value Ref Range Status 06/19/2021 144 135 - 145 mmol/L Final Potassium, pl Date Value Ref Range Status 06/19/2021 4.4 3.3 - 4.9 mmol/L Final BUN Date Value Ref Range Status 06/19/2021 14 8 - 25 mg/dL Final Creatinine Date Value Ref Range Status 06/19/2021 0.86 0.80 - 1.30 mg/dL Final Phosphorus, pl Date Value Ref Range Status 06/18/2021 3.7 2.3 - 4.5 mg/dL Final Albumin Date Value Ref Range Status 06/18/2021 2.4 (L) 3.5 - 5.0 g/dL Final Magnesium Date Value Ref Range Status 06/19/2021 2.4 1.4 - 2.5 mg/dL Final Calcium Date Value Ref Range Status 06/19/2021 9.1 8.5 - 10.3 mg/dL Final ALT Date Value Ref Range Status 06/18/2021 12 7 - 55 Units/L Final AST Date Value Ref Range Status 06/18/2021 18 10 - 50 Units/L Final Alk phos Date Value Ref Range Status 06/18/2021 91 40 - 130 Units/L Final Lab Results Component Value Date HGBA1C 5.2 06/12/2021 Nursing Assessment: Intake/Output Summary (Last 24 hours) at 06/20/2021 1410 Last data filed at 06/20/2021 1200 Gross per 24 hour Intake 1950 ml Output 1425 ml Net 525 ml Gastrointestinal Gastrointestinal (WDL): Within Defined Limits Abdomen Inspection: Soft, Nondistended Bowel Sounds (All Quadrants): Active Palpation: No guarding Last BM Date: 06/20/21 Passing Flatus: Yes GI Symptoms: None Gastrointestinal Additional Assessments: No Last BM Date: 06/20/21 Lew Scale Score: 14 Skin Integrity: Other (Comment), Abrasion (abscess) Dietary Orders (From admission, onward) Start Ordered 06/19/21 1505 Diet, Tube Feeding No Tray Jevity 1.5 veronica (NGT); 60; 150; Water; Every 4 hours Diet effective now Question Answer Comment Tube Feeding Formula: Jevity 1.5 veronica NGT Tube Feeding Continuous (mL/hr): 60 Tube Feeding Flush (mL): 150 Flush Type: Water Flush Frequency: Every 4 hours 06/19/21 1504 Impression: TF off part of yesterday for poss OR. Pt with L-greater trochanteric fx, No OR for now TF started: Jevity 1.5 @ goal 60 ml/hr Folic Acid 1 mg/day TQ-efu-whxjhfo gluconate daily Thiamine 250 mg IV q 24h x 5 days (first dose 06/14), then 100 mg/daily Several bm's, some bloody. Stool sent for C. Diff and guiac Spoke with nurse regarding skin alterations. Pt has a small, recurrent abscess on L-scrotum Wt Readings from Last 10 Encounters: 06/12/21 85.8 kg (189 lb 2.5 oz) 06/18/21 85.8 kg (189 lb 2.5 oz) 01/25/21 91.6 kg (202 lb) 07/16/20 87.1 kg (192 lb) 07/11/20 86.6 kg (190 lb 14.7 oz) 06/15/20 85.3 kg (188 lb) 02/22/20 88 kg (194 lb 0.1 oz) 01/04/20 78 kg (172 lb) 12/28/19 76.7 kg (169 lb 3.2 oz) NUTRITION DIAGNOSIS Nutrition Diagnosis 1: Inadequate oral intake Related to: NPO status Evidenced by: Need for full tube feeding INTERVENTION Recommend Jevity 1.5 at 60 ml/hr. TF at goal rate provides 2160 calories (25 calories/kg), 91 gm PRO (1.2 gm/kg/IBW), 1094 ml free water. Flush per team. Monitor electrolytes replete PRN. Follow aspiration precautions. GOAL(S) / MONITORING: Goals: Tolerance of enteral feeding at goal rate Interventions: Enteral nutrition administration Monitoring and Evaluation: Labs, I/O, TF tolerance, Stool patterns Oneyda Mathews RD, LD Weekend / Consult [phone] * Theo Mcdonnell MD - 06/18/2021 5:36 PM CDTAssociated Order(s): CONSULT TO ORTHO-TRAUMA Orthopaedic Surgery Trauma Service Consult June 18, 2021 5:37 PM Reason for Consult: L greater troch fx Requesting Provider: Neuro ICU Imaging and notes were reviewed and evaluated within 30 minutes of consultation. MBB Dx: L greater troch fx Injury Mechanism: SLMF OI: TBI, SAH; chronic draining scrotal abscess PMHx: HTN, atrial fibrillation (on eliquis, last 3), CHF, COPD Plan: Non-op L greater troch fx pending MRI. Procedure(s): None , HPI: 71 y.o.male s/p SLMF p/w L greater troch fx. Fell around 06/06/2021, sustained TBI and SAH, has been encephalopathic w/ AMS since in NICU. Has not been ambulatory 2/2 AMS requiring lift for transfers. Injury noted on CT abdomen performed for scrotal abscess. Exam: Intermittently participatory onexam, responding yes to all questions. Skin intact. No perceivable pain with logroll/hip ROM, actively moving LLE and ranging hip. Distally motor intact, WWP. OI: SAH/TBI. Consulting Services: Neuro ICU primary, NSGY. PMHx: HTN, atrial fibrillation (on eliquis, last 33), CHF, COPD. Soc Hx: + EtOH w/ withdrawals, unkn drugs, retired, lives w/ spouse. Edited by: Thoe Mcdonnell MD at 06/18/2021 8645 Patient unable to describe pain 2/2 mental status. Past Medical History: Diagnosis Date ??? Acute [...] THROUGH EXISTING CATHETER N/A 02/04/2020 ??? VASECTOMY Prior to Admission medications Medication Sig Start Date End Date Taking? Authorizing Provider apixaban (ELIQUIS) 5 mg tablet Take 1 tablet (5 mg total) by mouth every 12 (twelve) hours Patient taking differently: Take 5 mg by mouth every 12 (twelve) hours Last dose 07/08/20 02/22/20 01/25/21 Abiodun Rodgers MD cholecalciferol (VITAMIN D-3) 5,000 unit tablet Take 5,000 Units by mouth every morning ProviderManish MD folic acid (FOLVITE) 1 mg tablet Take 1 tablet (1 mg total) by mouth daily Patient taking differently: Take 1 mg by mouth every morning 02/22/20 01/25/21 Abiodun Rodgers MD furosemide (LASIX) 40 mg tablet Take 1 tablet (40 mg total) by mouth 2 (two) times a day Patient taking differently: Take 40 mg by mouth daily 02/22/20 02/21/21 Abiodun Rodgers MD lisinopriL (PRINIVIL,ZESTRIL) 40 mg tablet Take 1 tablet (40 mg total) by mouth daily Patient taking differently: Take 40 mg by mouth every morning 02/23/20 02/22/21 Abiodun Rodgers MD metoprolol (LOPRESSOR) 100 mg tablet Take 1 tablet (100 mg total) by mouth 2 (two) times a day 01/30/21 01/30/22 Abiodun Novak MD multivit,tx with iron,minerals (THERA-M ORAL) Take 1 tablet by mouth every morning ProviderManish MD pantoprazole DR (PROTONIX) 40 mg EC tablet Take 1 tablet (40 mg total) by mouth daily Patient taking differently: Take 40 mg by mouth every morning 02/23/20 02/22/21 Abiodun Rodgers MD pravastatin (PRAVACHOL) 40 mg tablet Take 40 mg by mouth daily ProviderManish MD terazosin (HYTRIN) 10 mg capsule Take 1 capsule (10 mg total) by mouth nightly Patient taking differently: Take 10 mg by mouth nightly 02/22/20 01/25/21 Abiodun Rodgers MD thiamine (VITAMIN B1) 100 mg tablet Take 100 mg by mouth every morning ProviderManish MD Allergies Allergen Reactions ??? Penicillins Hives Social History Tobacco Use ??? Smoking status: Current Every Day Smoker Packs/day: 1.00 Types: Cigarettes Start date: 1965 ??? Smokeless tobacco: Never Used Substance Use Topics ??? Alcohol use: Yes Comment: limited Family History Problem Relation Age of Onset ??? Hypertension Mother ??? Lung cancer Father ??? Cancer Father ??? Anesthesia problems Neg Hx Review of Systems: Unable to complete due to altered mental status Objective Vitals: Most Recent: Vitals: 06/18/21 1200 06/18/21 1258 06/18/21 1300 06/18/21 1400 BP: 104/83 114/90 (!) 138/119 BP Location: Left arm Left arm Patient Position: HOB 30 degrees HOB 30 degrees Pulse: 102 99 114 Resp: Temp: 37 ??C (98.6 ??F) TempSrc: Axillary SpO2: 95% 99% 98% 99% Weight: Height: Physical Exam: Gen: Well-developed, well-nourished, in no acute distress. Alert and oriented: Intermittently participatory on exam, responding yes to all questions. Left Lower Extremity No obvious deformity, skin intact, no ecchymosis no TTP at hip No crepitus with passive range of motion hip, knee, ankle Fires tibialis anterior, gastroc-soleus complex, extensor hallucis longus and flexor hallucis longus Unable to participate in sensory testing 2/2 mental status, responding yes to all questions 2+ dorsalis pedis, posterior tibial pulses Toes warm and well perfused, brisk capillary refill <3 seconds Examination of uninjured extremities demonstrates no tenderness to palpation, full range of motion,no concern for other injury. Lab/Radiology/Diagnostic Review: Laboratory review: Recent Results (from the past 24 hour(s)) Phosphorus Collection Time: 06/17/21 10:03 PM Result Value Ref Range Phosphorus, pl 3.3 2.3 - 4.5 mg/dL Magnesium Collection Time: 06/17/21 10:03 PM Result Value Ref Range Magnesium 2.3 1.4 - 2.5 mg/dL Basic metabolic panel Collection Time: 06/17/21 10:03 PM Result Value Ref Range Sodium 147 (H) 135 - 145 mmol/L Potassium, pl 4.3 3.3 - 4.9 mmol/L Chloride 110 97 - 110 mmol/L CO2 31 22 - 32 mmol/L Anion gap 6 2 - 15 mmol/L BUN 17 8 - 25 mg/dL Creatinine 0.80 0.80 - 1.30 mg/dL Glucose 152 70 - 199 mg/dL Calcium 8.8 8.5 - 10.3 mg/dL CBC without differential Collection Time: 06/17/21 10:03 PM Result Value Ref Range WBC 6.6 3.8 - 9.9 K/cumm Hgb 10.7 (L) 13.0 - 17.5 g/dL Hct 33.0 (L) 38.9 - 50.3 % Plt 151 150 - 400 K/cumm MPV 11.8 9.1 - 12.3 fL RBC 3.11 (L) 4.30 - 5.80 M/cumm MCV 106.1 (H) 81.3 - 96.4 fL MCH 34.4 (H) 27.1 - 33.3 pg MCHC 32.4 32.3 - 35.7 g/dL RDW CV 12.7 11.1 - 14.9 % RDW SD 49.7 (H) 35.7 - 48.1 fL NRBC abs 0.00 0.00 - 0.01 K/cumm Blood gas, arterial Collection Time: 06/17/21 10:03 PM Result Value Ref Range pH, Art 7.45 7.35 - 7.45 PCO2, Arterial 41 35 - 45 mmHg PO2, Arterial 170 (H) 83 - 108 mmHg HCO3 Art (Calculated) 30 20 - 30 mmol/L BE, art 4 mmol/L O2 Sat Art (Measured) 99 (H) 90 - 95 % eGFR Collection Time: 06/17/21 10:03 PM Result Value Ref Range eGFR >90 90 - 130 mL/min/1.73 m2 Radiology Review: I independently reviewed and interpreted the imaging with the following findings: CT abdomen/pelvis w/ small fracture of the greater trochanter that goes from about the piriformis fossa to the lateral greater troch. Possible fracture line about the lesser troch. No obvious intertroch component. Procedure: None Assessment/Plan: 71 y.o. male p/w L greater troch fx. Plan pending further imaging. Recommend MRI to evaluate for intertroch involvement. 1. Weight Bearing: NWB LLE 2. Diet: NPO at midnight 3. DVT ppx: Per primary 4. Further Imaging: XR L hip w/ pelvis; XR L femur 5. Pain control: per primary 6. PT/OT 7. Abx: n/a 8. Will discuss with the ortho trauma team prior to further recommendations. Theo Mcdonnell MD Orthopaedic Surgery Resident [phone] ?? Normal business hours: If you know the resident's name on the appropriate orthopaedic surgery team, please use the Directory Search at [email or web address] to page resident directly. ?? If questions arise and the appropriate resident can't be reached or you are calling overnight, please contact [phone] ([facility] [place]- 7:30 PM - 6:30 AM - Floor Resident) or [phone] (24 hours/day- Consult Resident) Cosigned by Yoanna Delvalle MD at 06/19/2021 7:30 AM CDT Associated attestation - Yoanna Delvalle MD - 06/19/2021 7:30 AM CDT I personally saw and examined the patient as an inpatient on 19 june 2021. I have reviewed the imaging which shows left greater trochanteric fracture cannot exclude intertrochanteric extension. I have read the resident???s note and agree with the findings and plan by Dr Theo Mcdonnell MD. If prohibitively painful with ambulation consider MRI L hip to evaulate for intertrochanteric extension. Yoanna Delvalle MD 06/19/2021, 7:26 AM * Rui Selby MD - 06/18/2021 8:32 AM CDTAssociated Order(s): IP CONSULT TO UROLOGY Images from the original note were not included. Urology Consult Note Subjective Chief Complaint: scrotal abscess History of Present Illness: I was requested to see Jania Redman to evaluate for scrotal abscess by Chuck Ferrer. 71 year old man with a history of HTN, atrial fibrillation (on eliquis, HFrEF, and COPD who presents to the ICU in the setting of a TBI with SAH and IVH and persistent encephalopathy with respiratoryinsufficiency. Urology is being consulted for a new scrotal abscess. Culture was sent which was positive for GPCs and GNBs. Clindamycin started for history of ESBL. Patient is normocardic, normotensive, and afebrile today. He remains intubated. WBC 6.6. The patient's past medical, surgical, medication, allergy, family, and social histories were reviewed and noncontributory to this illness/condition except as noted below: The patient's past medical history is notable for: Past Medical History: Diagnosis Date ??? Acute [...] (transient ischemic attack) ??? Vitamin D deficiency The patient's past surgical history is notable for: Past Surgical History: Procedure Laterality Date ??? ABSCESS CATHETER INJECTION N/A 12/25/2019 ??? ABSCESS CATHETER INJECTION N/A 01/04/2020 ??? ABSCESS CATHETER INJECTION N/A 01/15/2020 ??? CATARACT EXTRACTION, BILATERAL ??? CHOLECYSTECTOMY ??? CIRCUMCISION ??? FLUID DRAIN SOFT TISSUE N/A 12/19/2019 ??? IR CHOLANGIOGRAM THROUGH EXISTING CATHETER N/A 02/04/2020 ??? VASECTOMY The patient is currently taking the following medications: Current Facility-Administered Medications Medication Dose Route Frequency Provider Last Rate Last Admin ??? acetaminophen (TYLENOL) tablet 650 mg 650 mg feeding tube Q4H PRN Cassie Trent NP 650 mg at 06/14/212046 ??? amiodarone (PACERONE) tablet 400 mg 400 mg feeding tube TID Katia Champion NP 400 mg at 06/17/212046 Followed by ??? [START ON 06/19/2021] amiodarone (PACERONE) tablet 200 mg 200 mg feeding tube Daily Katia Champion NP ??? artificial saliva (MOUTH KOTE) spray 2 application 2 application mouth/throat Q4H PRN Cassie Trent NP 2 application at 06/14/212103 ??? bisacodyL (DULCOLAX) suppository 10 mg 10 mg rectal Daily PRN Belinda Shaffer MD PhD ??? cefTRIAXone (ROCEPHIN) 2,000 mg/20 mL in sterile water (premix) 2,000 mg 2,000 mg intravenous Q24H MONET Patricia Ferrer NP 2,000 mg at 06/17/212046 ??? chlorhexidine (PERIDEX) 0.12 % solution 15 mL 15 mL mouth/throat BID Wellington Crenshaw NP 15 mL at 06/17/212046 ??? docusate (COLACE) 10 mg/mL oral liquid 100 mg 100 mg feeding tube BID Belinda Shaffer MD PhD 100 mg at 06/17/212046 ??? folic acid (FOLVITE) tablet 1 mg 1 mg feeding tube Daily Cassie Trent NP 1 mg at 06/17/21817 ??? furosemide (LASIX) tablet 20 mg 20 mg feeding tube Daily Katia Champion NP 20 mg at 06/17/21817 ??? heparin 5,000 unit/mL injection 5,000 Units 5,000 Units subcutaneous Q8H MONET Cassie Trent NP 5,000 Units at 06/17/212100 ??? levalbuterol (XOPENEX) 1.25 mg/3 mL nebulizer solution 1.25 mg 1.25 mg nebulization Q6H PRN (RT) Katia Champion NP 1.25 mg at 06/14/21 0914 ??? levETIRAcetam (KEPPRA) tablet 500 mg 500 mg feeding tube BID Cassie Trent NP 500 mg at 06/17/21 1303 ??? metoprolol tartrate (LOPRESSOR) immediate release tablet 25 mg 25 mg feeding tube Q6H Candido Uribe MD 25 mg at 06/17/212047 ??? dznnvvzt-kvp-qpnhnjm gluconate (CENTRUM) 0.6 mg iron/mL oral liquid 15 mL 15 mL feeding tube Daily Cassie Trent NP 15 mL at 06/17/21816 ??? ondansetron (ZOFRAN) injection 4 mg 4 mg intravenous Q6H PRN Belinda Shaffer MD PhD ??? pantoprazole (PROTONIX) 4 mg/mL injection 40 mg 40 mg intravenous Q24H [facility] Cassie Trent TEXTILE MACHINE MAINTENANCE MECHANIC 40 mg at 06/17/21 0819 ??? polyvinyl alcohol-povidone (REFRESH CLASSIC) 1.4-0.6 % ophthalmic solution 2 drop 2 drop each eye QID PRN Cassie Trent NP 2 drop at 06/13/21 0821 ??? pravastatin (PRAVACHOL) tablet 40 mg 40 mg feeding tube Daily Cassie Trent NP 40 mg at 06/17/21 0817 ??? senna 1.76 mg/mL syrup 8.8 mg 8.8 mg feeding tube BID Belinda Shaffer MD PhD 8.8 mg at 06/17/212046 ??? sodium chloride 0.9% flush 0.5-20 mL 0.5-20 mL intra-catheter Q8H [facility] Belinda Shaffer MD PhD 10 mL at 06/17/212100 ??? sodium chloride 0.9% flush 0.5-20 mL 0.5-20 mL intra-catheter PRN Belinda Shaffer MD PhD ??? sodium chloride 0.9% flush 0.5-20 mL 0.5-20 mL intra-catheter Q8H [facility] Belinda Shaffer MD PhD 10 mL at 06/17/212100 ??? sodium chloride 0.9% flush 0.5-20 mL 0.5-20 mL intra-catheter PRN Belinda Shaffer MD PhD ??? terazosin (HYTRIN) capsule 20 mg 20 mg feeding tube Nightly Jair Jay MD 20 mgat 06/17/212046 ??? thiamine (VITAMIN B-1) 250 mg in sodium chloride 0.9% 100 mL IVPB 250 mg intravenous Q24H [facility] Cassie Trent NP 205 mL/hr at 06/17/21 0911 250 mg at 06/17/21 0911 Followed by ??? [START ON 06/19/2021] thiamine (VITAMIN B1) tablet 100 mg 100 mg feeding tube Daily Cassie Trent NP The patient is allergic to: Allergies Allergen Reactions ??? Penicillins Hives The patient's past family history is notable for: Family History Problem Relation Age of Onset ??? Hypertension Mother ??? Lung cancer Father ??? Cancer Father ??? Anesthesia problems Neg Hx The patient's past social history is notable for: Social History Socioeconomic History ??? Marital status: Spouse name: Not on file ??? Number of children: Not on file ??? Years of education: Not on file ??? Highest education level: Not on file Occupational History ??? Not on file Tobacco Use ??? Smoking status: Current Every Day Smoker Packs/day: 1.00 Types: Cigarettes Start date: 1965 ??? Smokeless tobacco: Never Used Vaping Use ??? Vaping Use: Never used Substance and Sexual Activity ??? Alcohol use: Yes Comment: limited ??? Drug use: Yes Types: Alcohol Comment: Reportedly 3 shots of Tequila/day ??? Sexual activity: Defer Other Topics Concern ??? Not on file Social History Narrative Cigarette smoker : (Added by TW Conv) Social Determinants of Health Financial Resource Strain: Unknown ??? Difficulty of Paying Living Expenses: Patient refused Food Insecurity: No Food Insecurity ??? Worried About Running Out of Food in the Last Year: Never true ??? Ran Out of Food in the Last Year: Never true Transportation Needs: No Transportation Needs ??? Lack of Transportation (Medical): No ??? Lack of Transportation (Non-Medical): No Physical Activity: Not on file Stress: Not on file Social Connections: Socially Isolated ??? Frequency of Communication with Friends and Family: Never ??? Frequency of Social Gatherings with Friends and Family: Never ??? Attends Pentec[employer]al Services: Never ??? Active Member of Clubs or Organizations: No ??? Attends Club or Organization Meetings: Never ??? Marital Status: Intimate Partner Violence: Not on file Housing Stability: Low Risk ??? Unable to Pay for Housing in the Last Year: No ??? Number of Places Lived in the Last Year: 1 ??? Unstable Housing in the Last Year: No Review of systems A 10 point ROS was performed and is negative other than what is stated in the HPI. Objective In/Outs: I/O last 3 completed shifts: In: 3030 [I.V.:30; NG/GT:2900; IV Piggyback:100] Out: 1775 [Urine:1775] I/O this shift: In: 360 [I.V.:20; NG/GT:320; IV Piggyback:20] Out: 15 [Urine:15] Physical Exam: Vitals: 06/17/21 1800 06/17/21 1900 06/17/21199906/17/21 2100 BP: 117/70 134/88 135/93 141/95 BP Location: Left arm Left arm Left arm Left arm Patient Position: HOB 30 degrees HOB 30 degrees HOB 30 degrees HOB 30 degrees Pulse: 103 91 107 104 Resp: Temp: 37.4 ??C (99.32 ??F) 37.2 ??C (98.96 ??F) 37.2 ??C (98.96 ??F) 37.3 ??C (99.14 ??F) TempSrc: Esophageal Esophageal Esophageal Esophageal SpO2: 100% 100% 100% 100% Weight: Height: Constitutional: no acute distress, intubated Skin/Integumentary: no bruising or rashes on face or hands HEENT:extraocular muscles intact, mucous membranes moist, sclera white, conjunctiva pink, neck normal range of motion Cardiovascular: regular rate Respiratory: breathing symmetric Gastrointestinal: soft, non-tender, non-distended, no hernia, no masses Flank: no CVA tenderness bilaterally Genitourinary: coombs catheter to gravity with yellow color urine Small 2cm abscess with pinpoint purulent drainage. No overlying crepitus or erythema Psychiatric: Mood and affect appropriate Neurologic: grossly intact Labs/Imaging: Chem/LFT Lab History Some values may be hidden. Unless noted otherwise, only the newest values recorded on each date aredisplayed. Labs-Chem/LFT Latest Ref Range 06/14/21 06/15/21 06/16/21 06/17/21 Sodium 135 - 145 mmol/L 145 145 149 (A) 144 Potassium Lvl Creatinine 0.80 - 1.30 mg/dL 0.79 (A) 0.88 0.69 (A) 0.79 (A) Bilirubin, total AST ALT CrCl- Actual Body Weight (Cockcroft-Gault) 105.6 94.8 120.9 105.6 Some values recorded on this date have been omitted. Some abnormal values recorded on this date have been omitted. (A) Abnormal value Hematology Lab History Some values may be hidden. Unless noted otherwise, only the newest values recorded on each date aredisplayed. Labs - Hematology Latest Ref Range 06/13/21 06/14/21 06/15/21 06/16/21 WBC 3.8 - 9.9 K/cumm 6.4 7.9 7.6 5.3 Total Hb, POC 13.0 - 17.5 g/dL 12.2 (A) 12.6 (A) 12.1 (A) 8.9 (A) Hct 38.9 - 50.3 % 34.9 (A) 36.0 (A) 34.0 (A) 27.5 (A) Plt 150 - 400 K/cumm 120 (A) 133 (A) 126 (A) 101 (A) Neutrophil abs 1.7 - 6.5 K/cumm 3.6 Lymphocytes, abs 0.8 - 3.3 K/cumm 1.1 Some values recorded on this date have been omitted. Some abnormal values recorded on this date have been omitted. (A) Abnormal value Comments are available for some flowsheets but are not being displayed. The following images were personally reviewed by me. US Scrotum Narrative: EXAMINATION: SCROTAL SONOGRAM HISTORY: Drainage from the scrotum, evaluate for abscess. COMPARISON: None FINDINGS: The testes are normal in size and appearance. The right testis measures 4.7 cm by 2. cm by 2.0 cm and the left measures 4.3 cm by 3.6 cm by 1.9 cm. No focal lesions are seen. The right and left epididymis are normal with the exception of a 7 mm cyst in the right epididymal head. There is a simple left hydrocele. There is thickening of the subcutaneous tissues in the underside of the left hemiscrotum with associated soft tissue hyperemia, with a thin sliver of hypoechoic fluid measuring 2.5 x 1.7 x 0.3 cm. Impression: 1. Normal sonographic evaluation of both testes. 2. Small simple left hydrocele. 3. Subcutaneous thickening and soft tissue hyperemia on the underside of the left hemiscrotum with a thin, crescentic fluid collection which may be secondary to cellulitis. Dictated by: Milo Ferreira XR Chest 1 View Narrative: EXAMINATION: 1 view chest radiograph Impression: Comparison, 06/15/2021. Endotracheal tube tip is 3 cm above the jhonny. Gastric tube is in place, tip below the diaphragm. The lungs are slightly hyperinflated, suggestive of underlying pulmonary emphysema. Proximal pulmonary arteries remain mildly enlarged. There is some minimal bibasilar subsegmental atelectasis. This is improved in comparison to the previous examination. There is no pleural effusion or pneumothorax. Mild cardiomegaly with atherosclerotic aorta is stable. Electronically signed by: Laura Conner M.D. Assessment 71 year old man with a history of HTN, atrial fibrillation (on eliquis, HFrEF, and COPD who presents to the ICU in the setting of a TBI with SAH and IVH and persistent encephalopathy. Found to have draining scrotal abscess. CT scan and exam are reassuring for no necrotizing soft tissue infection. Should be adequately treated with antibiotics now that it is draining. Plan Treat with 10 day course of antibiotics, should heal on its own Please call urology if infection appears worse or changes Thank you for allowing us to participate in the care of this patient. For any questions or concerns, please page Urology through the cold saw operator. Rui Selby MD 06/17/2021 Cosigned by Ray Vera MD at 06/18/2021 12:04 PM CDT * Oneyda Mathews, RD - 06/14/2021 10:54 AM CST Nutrition Tube Feeding Assessment Reason for Assessment: follow-up Encounter Date: 06/14/21 10:54 AM Patient is a 71 y.o. male LOS is 3 days. HPI: HTN/HL, a-fib on Eliquis, HFrEF (45-50% EF 2020), COPD not on home O2, legally blind, hearing loss,Ccy p/w trace tSAH and IVH following a fall. Admitted OSH with altered LOC. Tx to [facility] NSGY service 06/11 where has remained encephalopathic. Objective Past Medical History: Diagnosis Date ??? [...] VASECTOMY Allergies Allergen Reactions ??? Penicillins Hives Social History Tobacco Use ??? Smoking status: Current Every Day Smoker Packs/day: 1.00 Types: Cigarettes Start date: 1965 ??? Smokeless tobacco: Never Used Substance Use Topics ??? Alcohol use: Yes Comment: limited Family History Problem Relation Age of Onset ??? Hypertension Mother ??? Lung cancer Father ??? Cancer Father ??? Anesthesia problems Neg Hx Anthropometrics: Wt Readings from Last 3 Encounters: 06/12/21 85.8 kg (189 lb 2.5 oz) 01/25/21 91.6 kg (202 lb) 07/16/20 87.1 kg (192 lb) Anthropometrics Weight: 85.8 kg (189 lb 2.5 oz) Admission Weight : 80.9 kg Weight Change: 4.90 kg (10.80 lbs) IBW/kg (Calculated) : 78 kg Height: 180.3 cm (5' 10.98 ) Weight in (lb) to have BMI = 25: 178.8 BMI (Calculated): 26.4 Nutrition Needs Calculations: Calculated Energy Needs Using Equations Weight Used for Equation Calculations (RD Determined): 85.8 kg (189 lb 2.5 oz) Weight: 85.8 kg (189 lb 2.5 oz) Height: 180.3 cm (5' 10.98 ) Estimated Protein Needs Type of Weight Used for Estimated Protein : [place] Protein Needs Based on g/k.2 Total Protein Estimated Needs (gm): 93.6 Kcal/kg Type of Weight Used for Estimated Kcals: Current Kcal/k Total Kcal/kg Estimated Needs : 2145 Vital Signs: 24hr Min/Max: Temp Min: 36 ??C (96.8 ??F) Max: 36.8 ??C (98.2 ??F) Pulse Min: 69 Max: 116 BP Min: 113/91 Max: 153/98 Resp Min: 11 Max: 26 SpO2 Min: 95 % Max: 100 % Most Recent : Vitals: 06/14/21 1000 BP: 134/84 Pulse: 69 Resp: 11 Temp: 36.6 ??C (97.88 ??F) SpO2: 100% Height: 180.3 cm ( ) Weight: 85.8 kg (189 lb 2.5 oz) Weight Change: 4.90 kg (10.80 lbs) Medications: Scheduled Meds: amiodarone, 400 mg, feeding tube, TID Followed by [START ON 06/19/2021] amiodarone, 200 mg, feeding tube, Daily docusate, 100 mg, feeding tube, BID folic acid, 1 mg, feeding tube, Daily heparin, 5,000 Units, subcutaneous, Q8H MONET levETIRAcetam, 500 mg, feeding tube, BID magnesium sulfate, 2 g, intravenous, Once metoprolol tartrate, 50 mg, feeding tube, Q6H jpgaxrsf-rkw-tjanuaa gluconate, 15 mL, feeding tube, Daily pantoprazole, 40 mg, intravenous, Q24H MONET pravastatin, 40 mg, feeding tube, Daily senna, 8.8 mg, feeding tube, BID sodium chloride 0.9%, 0.5-20 mL, intra-catheter, Q8H MONET sodium chloride 0.9%, 0.5-20 mL, intra-catheter, Q8H MONET terazosin, 10 mg, feeding tube, Nightly thiamine, 250 mg, intravenous, Q24H MONET Followed by [START ON 06/19/2021] thiamine, 100 mg, feeding tube, Daily Continuous Infusions: sodium chloride 0.9%, 75 mL/hr, Last Rate: 15 mL/hr (06/14/21 0717) Lab Review: Sodium Date Value Ref Range Status 06/14/2021 145 135 - 145 mmol/L Final Potassium, pl Date Value Ref Range Status 06/14/2021 3.9 3.3 - 4.9 mmol/L Final BUN Date Value Ref Range Status 06/14/2021 9 8 - 25 mg/dL Final Creatinine Date Value Ref Range Status 06/14/2021 0.72 (L) 0.80 - 1.30 mg/dL Final Phosphorus, pl Date Value Ref Range Status 06/14/2021 3.1 2.3 - 4.5 mg/dL Final Albumin Date Value Ref Range Status 06/12/2021 3.0 (L) 3.5 - 5.0 g/dL Final Magnesium Date Value Ref Range Status 06/14/2021 1.8 1.4 - 2.5 mg/dL Final Calcium Date Value Ref Range Status 06/14/2021 8.7 8.5 - 10.3 mg/dL Final HDL Date Value Ref Range Status 06/12/2021 44 >=40 mg/dL Final Comment: Interpretive Data Ages < or = 19 years Acceptable: >45 mg/dL Borderline low: 40-45 mg/dL Low: <40 mg/dL Ages > or = 20 years Desirable: >or= 60 mg/dL Low: <40 mg/dL Literature References: 1. Expert Panel on Integrated Guidelines for Cardiovascular Health and Risk Reduction in Children and Adolescents. Pediatrics 2011;128:S213 2. NCEP Expert Panel. Circulation 2004;110:227 Current Interpretive Data was last revised on 2017. ALT Date Value Ref Range Status 06/12/2021 11 7 - 55 Units/L Final AST Date Value Ref Range Status 06/12/2021 25 10 - 50 Units/L Final Alk phos Date Value Ref Range Status 06/12/2021 86 40 - 130 Units/L Final Lab Results Component Value Date HGBA1C 5.2 06/12/2021 Nursing Assessment: Intake/Output Summary (Last 24 hours) at 06/14/2021 1054 Last data filed at 06/14/2021 1014 Gross per 24 hour Intake 3580.63 ml Output 1730 ml Net 1850.63 ml Gastrointestinal Gastrointestinal (WDL): Exceptions to WDL Abdomen Inspection: Soft Bowel Sounds (All Quadrants): Active Palpation: Soft Last BM Date: 06/13/21 Passing Flatus: Yes GI Symptoms: None Gastrointestinal Additional Assessments: No Last BM Date: 06/13/21 Lew Scale Score: 13 Skin Integrity: Bruising Dietary Orders (From admission, onward) Start Ordered 06/13/21 1423 Diet, Tube Feeding No Tray Jevity 1.5 veronica; 60 Diet effective now Comments: Advance by 10 mL/hr every 8 hours until at goal Question Answer Comment Tube Feeding Formula: Jevity 1.5 veronica Tube Feeding Continuous (mL/hr): 60 06/13/21 1425 Impression: 06/13: RD consult for TF recommendations. +NGT. Lytes WNL. Planned to start TF today. 06/14: Spoke with pt briefly. Pt unable to respond appropriately. Pt with hand restraints. TF started: Jevity 1.5 @ 40 ml/hr; goal 60 ml/hr Folic Acid 1 mg/day [id number]-fetyioh gluconate daily Thiamine 250 mg IV q 24h x 5 days (first dose 06/14), then 100 mg/daily + bm today Spoke with nurse regarding skin alterations. Per nurse, old pressure ulcer on coccyx is almost healed. Pt has a small, recurrent abscess on L-scrotum Wt Readings from Last 10 Encounters: 06/12/21 85.8 kg (189 lb 2.5 oz) 01/25/21 91.6 kg (202 lb) 07/16/20 87.1 kg (192 lb) 07/11/20 86.6 kg (190 lb 14.7 oz) 06/15/20 85.3 kg (188 lb) 02/22/20 88 kg (194 lb 0.1 oz) 01/04/20 78 kg (172 lb) 12/28/19 76.7 kg (169 lb 3.2 oz) NUTRITION DIAGNOSIS Nutrition Diagnosis 1: Inadequate oral intake Related to: NPO status Evidenced by: Need for full tube feeding INTERVENTION Recommend Jevity 1.5 at 60 ml/hr. TF at goal rate provides 2160 calories (25 calories/kg), 91 gm PRO (1.2 gm/kg/IBW), 1094 ml free water. Flush per team. Monitor electrolytes replete PRN. Follow aspiration precautions. GOAL(S) / MONITORING: Goals: Tolerance of enteral feeding at goal rate Interventions: Enteral nutrition administration Monitoring and Evaluation: Labs, I/O, TF tolerance, Stool patterns Oneyda Mathews RD, LD Weekend / Consult [phone] N MARKETING ANALYST N MARKETING ANALYST * Ward, Bryson Allen MD - 06/13/2021 6:33 PM CSTAssociated Order(s): IP CONSULT TO UROLOGY BRIEF UROLOGY CONSULT NOTE Jania Redman is a 71 y.o. male history of a-fib, HFrEF (45-50% EF 2020) and alcohol alcohol use whowas transferred to [facility] 06/11 from OSH after being found to have trace traumatic SAH and IVH followinga recent fall. . Urology was consulted for difficulty placing a Coombs catheter. Using the standard sterile technique, we placed a 16 Fr Coudecatheter without any resistance or difficulty. Balloon inflated with 10cc. Patient with minimal urine return. I subsequently irrigated thecatheter with 120 cc of saline with return of yellow urine. Coombs difficulty assessment checklist: Yes No Required a coude catheter? [x] [] Required cystoscopy? [] [x] MD attempted to place? [] [x] Needs urology follow up? [] [x] Recommendations: - Coombs management per primary team. - irrigate catheter PRN per RN - To irrigate Coombs catheter, disconnect gravity bag from catheter. Using a syringe, instill 60mL of NS into bladder. Pull back on syringe plunger and withdraw fluid. It may be necessary to instill an additional 60ml (totaling 120mL) to help prevent Coombs catheter from sticking to bladder wall. Then withdraw 60mL and discard - Primary can discontinue coombs and void trial when deemed appropriate. - If the patient fails his void trial, please start him on Flomax 0.4mg/day and replace the catheter. This is NOT considered a difficult Coombs , so with the proper technique, it could be replaced bynursing staff or MD provider taking care of the patient. If unable to place a 16Fr Coombs, try a 16-18Fr coude catheter. If unable to place either of these catheters, please do not hesitate to contactUrology and we would be happy to assist. - If he fails void trial, he can be discharged with the Coombs catheter and follow up with Urology as outpatient. The phone number for our clinic is [phone] - Urology will sign off. Thank you for allowing us to participate in this patient's care. To reach the urology consult resident from 6:00 to 18:00 (Saturday-Saturday), please call [phone].If you want to contact Urology consults after hours (18:00 to 6:00) and over the weekend, please call the cold saw operator Bryson Ward MD Cosigned by Sarah Bangura MD at 06/19/2021 10:35 AM CDT N MARKETING ANALYST * Kaushik Sousa, ASHLEY - 06/13/2021 2:11 PM CSTAssociated Order(s): IP CONSULT TO NUTRITION SERVICES Nutrition Tube Feeding Assessment Reason for Assessment: Consult/Referral Encounter Date: 06/13/21 2:12 PM Patient is a 71 y.o. male LOS is 2 days. HPI: HTN/HL, a-fib on Eliquis, HFrEF (45-50% EF 2020), COPD not on home O2, legally blind, hearing loss,Ccy p/w trace tSAH and IVH following a fall. Admitted OSH with altered LOC. Tx to [facility] service 06/11 where has remained encephalopathic. Objective Past Medical History: Diagnosis Date ??? [...] VASECTOMY Allergies Allergen Reactions ??? Penicillins Hives Social History Tobacco Use ??? Smoking status: Current Every Day Smoker Packs/day: 1.00 Types: Cigarettes Start date: 1965 ??? Smokeless tobacco: Never Used Substance Use Topics ??? Alcohol use: Yes Comment: limited Family History Problem Relation Age of Onset ??? Hypertension Mother ??? Lung cancer Father ??? Cancer Father ??? Anesthesia problems Neg Hx Anthropometrics: Wt Readings from Last 3 Encounters: 06/12/21 85.8 kg (189 lb 2.5 oz) 01/25/21 91.6 kg (202 lb) 07/16/20 87.1 kg (192 lb) Anthropometrics Weight: 85.8 kg (189 lb 2.5 oz) Admission Weight : 80.9 kg Weight Change: 4.90 kg (10.80 lbs) IBW/kg (Calculated) : 78 kg Height: 180.3 cm (5' .98 ) Weight in (lb) to have BMI = 25: 178.8 BMI (Calculated): 26.4 Nutrition Needs Calculations: Calculated Energy Needs Using Equations Weight Used for Equation Calculations (RD Determined): 85.8 kg (189 lb 2.5 oz) Weight: 85.8 kg (189 lb 2.5 oz) Height: 180.3 cm (5' 10.98 ) Estimated Protein Needs Type of Weight Used for Estimated Protein : [place] Protein Needs Based on g/k.2 Total Protein Estimated Needs (gm): 93.6 Kcal/kg Type of Weight Used for Estimated Kcals: Current Kcal/k Total Kcal/kg Estimated Needs : 2145 Vital Signs: 24hr Min/Max: Temp Min: 35.9 ??C (96.62 ??F) Max: 37 ??C (98.6 ??F) Pulse Min: 66 Max: 154 BP Min: 108/82 Max: 182/134 Resp Min: 11 Max: 27 SpO2 Min: 95 % Max: 100 % Most Recent : Vitals: 06/13/21 1300 BP: 145/97 Pulse: 85 Resp: 21 Temp: 36.4 ??C (97.52 ??F) SpO2: 100% Height: 180.3 cm (5' 10.98 ) Weight: 85.8 kg (189 lb 2.5 oz) Weight Change: 4.90 kg (10.80 lbs) Medications: Scheduled Meds: [START ON 06/14/2021] amiodarone, 400 mg, feeding tube, TID Followed by [START ON 06/19/2021] amiodarone, 200 mg, feeding tube, Daily docusate, 100 mg, feeding tube, BID folic acid, 1 mg, feeding tube, Daily levETIRAcetam, 500 mg, feeding tube, BID metoprolol tartrate, 50 mg, feeding tube, Q6H [id number] gluconate, 15 mL, feeding tube, Daily pantoprazole, 40 mg, intravenous, Q24H MONET pravastatin, 40 mg, feeding tube, Daily senna, 8.8 mg, feeding tube, BID sodium chloride 0.9%, 0.5-20 mL, intra-catheter, Q8H MONET sodium chloride 0.9%, 0.5-20 mL, intra-catheter, Q8H MONET terazosin, 10 mg, feeding tube, Nightly thiamine, 500 mg, intravenous, Q8H Followed by [START ON 06/14/2021] thiamine, 250 mg, intravenous, Q24H MONET Followed by [START ON 06/19/2021] thiamine, 100 mg, feeding tube, Daily Continuous Infusions: amiodarone, 0.5 mg/min, Last Rate: 0.5 mg/min (06/13/21 1228) sodium chloride 0.9%, 75 mL/hr, Last Rate: 75 mL/hr (06/13/21 0820) Lab Review: Sodium Date Value Ref Range Status 06/13/2021 143 135 - 145 mmol/L Final Potassium, pl Date Value Ref Range Status 06/13/2021 4.7 3.3 - 4.9 mmol/L Final Comment: Hemolyzed; Potassium value may be falsely elevated by as much as 0.6-1.0 mmol/L. Suggest redraw andreanalysis. BUN Date Value Ref Range Status 06/13/2021 10 8 - 25 mg/dL Final Creatinine Date Value Ref Range Status 06/13/2021 0.71 (L) 0.80 - 1.30 mg/dL Final Phosphorus, pl Date Value Ref Range Status 06/12/2021 3.7 2.3 - 4.5 mg/dL Final Albumin Date Value Ref Range Status 06/12/2021 3.0 (L) 3.5 - 5.0 g/dL Final Magnesium Date Value Ref Range Status 06/12/2021 2.5 1.4 - 2.5 mg/dL Final Calcium Date Value Ref Range Status 06/13/2021 8.4 (L) 8.5 - 10.3 mg/dL Final HDL Date Value Ref Range Status 06/12/2021 44 >=40 mg/dL Final Comment: Interpretive Data Ages < or = 19 years Acceptable: >45 mg/dL Borderline low: 40-45 mg/dL Low: <40 mg/dL Ages > or = 20 years Desirable: >or= 60 mg/dL Low: <40 mg/dL Literature References: 1. Expert Panel on Integrated Guidelines for Cardiovascular Health and Risk Reduction in Children and Adolescents. Pediatrics 2011;128:S213 2. NCEP Expert Panel. Circulation 2004;110:227 Current Interpretive Data was last revised on 2017. ALT Date Value Ref Range Status 06/12/2021 11 7 - 55 Units/L Final AST Date Value Ref Range Status 06/12/2021 25 10 - 50 Units/L Final Alk phos Date Value Ref Range Status 06/12/2021 86 40 - 130 Units/L Final Lab Results Component Value Date HGBA1C 5.2 06/12/2021 Nursing Assessment: Intake/Output Summary (Last 24 hours) at 06/13/2021 1412 Last data filed at 06/13/2021 1300 Gross per 24 hour Intake 3216.65 ml Output 470 ml Net 2746.65 ml Gastrointestinal Gastrointestinal (WDL): Exceptions to WDL Abdomen Inspection: Soft, Nondistended Bowel Sounds (All Quadrants): Active Palpation: Soft, No guarding Last BM Date: (ferry captain) Passing Flatus: Yes Last BM Date: (ferry captain) Lew Scale Score: 13 Skin Integrity: Abrasion, Bruising Dietary Orders (From admission, onward) Start Ordered 06/12/21 1118 NPO Diet Diet effective now 06/12/21 1121 Impression: RD consult for TF recommendations. +NGT. Lytes WNL. Unable to talk with pt, attempted multiple times with staff in the room during attempted visits. Planned to start TF today. +Abdomen soft; nondistended. Wt Readings from Last 10 Encounters: 06/12/21 85.8 kg (189 lb 2.5 oz) 01/25/21 91.6 kg (202 lb) 07/16/20 87.1 kg (192 lb) 07/11/20 86.6 kg (190 lb 14.7 oz) 06/15/20 85.3 kg (188 lb) 02/22/20 88 kg (194 lb 0.1 oz) 01/04/20 78 kg (172 lb) 12/28/19 76.7 kg (169 lb 3.2 oz) NUTRITION DIAGNOSIS Nutrition Diagnosis 1: Inadequate oral intake Related to: NPO status Evidenced by: Need for full tube feeding INTERVENTION Recommend Jevity 1.5 at 60 ml/hr. TF at goal rate provides 2160 calories (25 calories/kg), 91 gm PRO (1.2 gm/kg/IBW), 1094 ml free water. Flush per team. Monitor electrolytes replete PRN. Follow aspiration precautions. GOAL(S) / MONITORING: Goals: Tolerance of enteral feeding at goal rate Interventions: Enteral nutrition administration Monitoring and Evaluation: Labs, I/O, TF tolerance, Stool patterns Kaushik Sousa, , RD, LD, [facility] [phone] Weekend / Consult [phone] N MARKETING ANALYST documented in this encounter Nursing Notes * Trinity Wu RN - 07/07/2021 7:55 PM CDT Patient discharged to [facility] per order. Report called to Jaqueline Wolff. Discharge instructions reviewed with patient. Second nurse signature obtained due to confusion. Signed copyin chart. IV accesses removed. Belongings sent with patient. Telemetry removed. Patient left via EMS. * Jenn Kendrick RN - 07/07/2021 2:22 PM CDT Student nurse from [employer], caring for patient for duration of shift. I agree with the previously charted assessment, unless noted otherwise. * Maria Del Rosario Cai RN - 06/30/2021 12:45 AM CDT Pt labs came back with a blood glucose of 70. Did a POC BS and it was 32. Notified resident, gave pt applesauce with sugar packets after 15 BS increased to 90 then after another 15 min increased to 109. Pt was unable to describe if he was nauseous, dizzy. Pt is on and off orientated to self. * Lisa Gruber RN - 06/29/2021 2:46 PM CDT Patient presented from:[facility] Arrived by:EMS Arrived to:ICU Admitted:ICU Readmit:No Presenting mechanism/injuries:fall with IVH Support: Recommendations:pt/ot SNF placement Participation:Assist CD Resources:Provided Business cards left with education and resource packet for additional questions/needs Lisa Flores Nurse Coordinator Trauma and Acute Care Surgery [phone] * Latha Chaves RN - 06/28/2021 4:38 PM CDT Transferred patient to [facility]. Report given to Dmitry NOLASCO. Pt sent on telemetry. * Ani Chavez RN - 06/19/2021 1:40 PM CDT The underside of the scrotum is intact with no visible wound seen. Where the abcess was visible there is a small pore-like opening with no drainage noted. * Vy Marin RN - 06/12/2021 11:01 AM CST Patient still lethargic for neuro exams, vice president consulting services at bedside. Patient only arousalable for 1-2 sec with sternal rub (painful stim) and will follow 1 command then will become lethargic again. RT called at MD request for assessment. ACT RN called by MD for POC ABGs. ACT team arrived and performed ABG. BEER RUNNER called and came to bedside. Patient continues to run Afib on monitor 110-140's. Patient to be transferred to ICU for observation. Report given to BEER RUNNER and admission discharge rn. All belongingsat bedside sent with patient. Called Patient's to update her and gave her phone number to call for update N MARKETING ANALYST documented in this encounter Miscellaneous Notes * Plan of Care - Clarence Coronado, BUNNY - 07/07/2021 6:52 PM CDT Medical Conditions Diagnosis ??? Hypercholesterolemia ??? Hypertension ??? Heartburn ??? Intra-abdominal abscess (CMS/HCC) (HCC) ??? DVT (deep venous thrombosis) (CMS/HCC) (HCC) ??? Cholecystitis ??? Atrial fibrillation (CMS/HCC) (HCC) ??? Chronic systolic heart failure (CMS/HCC) (HCC) ??? TBI (traumatic brain injury) (CMS/HCC) (HCC) ??? SAH (subarachnoid hemorrhage) (CMS/HCC) ([facility]) ??? Encephalopathy ??? Acute delirium ??? Scrotal abscess ??? Closed nondisplaced intertrochanteric fracture of left femur (CMS/HCC) ([facility]) ??? Dysphagia ??? Orthostatic hypotension ??? Acute respiratory failure (HCC) ??? Acute on chronic anemia ??? Thrombocytopenia (CMS/HCC) ([facility]) Patient receives Breo ellipta daily, but is not able to be turned over due to poor motor skills anddexterity. * Plan of Care - Jenn Kendrick RN - 07/07/2021 10:32 AM CDT Problem: Health Behavior: Goal: Understanding [...] Outcome: Progressing Problem: Lack of Knowledge: Goal: Knowledge of restraints will improve Description: INTERVENTIONS: 1. Educate patient/caregiver on restraints Outcome: Progressing Problem: Lack of Knowledge: Goal: Knowledge of restraints will improve Description: INTERVENTIONS: 1. Educate patient/caregiver on restraints Outcome: Progressing Problem: Lack of Knowledge: Goal: Risk factors for ineffective tissue perfusion will decrease Outcome: Progressing Goal: Knowledge of disease or condition will improve Outcome: Progressing Goal: Ability to identify and develop effective coping behavior will improve Outcome: Progressing Problem: Health Behavior: Goal: Identification of resources available to assist in meeting health care needs will improve Outcome: Progressing Problem: Physical Regulation: Goal: Ability to maintain clinical measurements within normal limits will improve Outcome: Progressing Goal: Will regain or maintain usual level of consciousness Outcome: Progressing Problem: Respiratory: Goal: Ability to maintain adequate ventilation will improve Outcome: Progressing Problem: Self-Care: Goal: Ability to perform activities of daily living will improve Outcome: Progressing Problem: Tissue Perfusion: Goal: Signs of adequate cerebral perfusion will increase Outcome: Progressing Problem: Lack of Knowledge: Goal: Knowledge on safety and abstaining from self-injurious behavior will increase Outcome: Progressing Problem: Lack of Knowledge: Goal: Ability to state ways to decrease the risk of falls will improve Outcome: Progressing Problem: Safety: Goal: Will remain free from falls Outcome: Progressing Goal: Will remain free from injury from falls Outcome: Progressing Goal: Will remain free from falls and injury in home environment Outcome: Progressing Goals: Clinical Goals for the Shift: Pts will not become agitated and will be compliant with all nursing care. Summary: Pt has not become agitation throughout shift and has been compliant with nursing cares. Ptis currently up in chair resting comfortably at this time. * Plan of Care - Deann Ascencio RN - 07/07/2021 3:36 AM CDT Problem: Health Behavior: Goal: Understanding [...] Outcome: Progressing Problem: Lack of Knowledge: Goal: Knowledge of restraints will improve Description: INTERVENTIONS: 1. Educate patient/caregiver on restraints Outcome: Progressing Problem: Safety - Medical Restraint Goal: Remains free of injury from restraints (Restraint for Interference with Necktie Maker) Description: INTERVENTIONS: 1. Identify and document the criteria for restraint 2. Determine that other, less restrictive measures have been tried or would not be effective beforeapplying the restraint 3. Evaluate the patient's condition at the time of restraint application and continue to monitor patient's condition 4. Inform patient/family regarding the reason for restraint 5. Q2H: Monitor safety checks including skin, circulation, sensory,respiratory, psychosocial status, comfort, nutrition and hydration 6. Ensure safety/first aid measures are in place (i.e. Quick release, suction, crash cart, etc.) Outcome: Progressing Goal: Free from restraint(s) (Restraint for Interference with Necktie Maker) Description: INTERVENTIONS: 1. Q2H and PRN: Assess and document the continuing need for restraints 2. Q24H: Continued use of restraint requires LIP to perform face to face examination and written order (ICU restraint orders are not reviewed Q24H only at the time of initiation) 3. Identify and implement measures to help patient regain control Outcome: Progressing Problem: Lack of Knowledge: Goal: Risk factors for ineffective tissue perfusion will decrease Outcome: Progressing Goal: Knowledge of disease or condition will improve Outcome: Progressing Goal: Ability to identify and develop effective coping behavior will improve Outcome: Progressing Problem: Health Behavior: Goal: Identification of resources available to assist in meeting health care needs will improve Outcome: Progressing Problem: Physical Regulation: Goal: Ability to maintain clinical measurements within normal limits will improve Outcome: Progressing Goal: Will regain or maintain usual level of consciousness Outcome: Progressing Problem: Respiratory: Goal: Ability to maintain adequate ventilation will improve Outcome: Progressing Problem: Self-Care: Goal: Ability to perform activities of daily living will improve Outcome: Progressing Problem: Tissue Perfusion: Goal: Signs of adequate cerebral perfusion will increase Outcome: Progressing Problem: Lack of Knowledge: Goal: Knowledge on safety and abstaining from self-injurious behavior will increase Outcome: Progressing Problem: Lack of Knowledge: Goal: Knowledge of restraints will improve Description: INTERVENTIONS: 1. Educate patient/caregiver on restraints Outcome: Progressing Problem: Lack of Knowledge: Goal: Ability to state ways to decrease the risk of falls will improve Outcome: Progressing Problem: Safety: Goal: Will remain free from falls Outcome: Progressing Goal: Will remain free from injury from falls Outcome: Progressing Goal: Will remain free from falls and injury in home environment Outcome: Progressing Goals: Clinical Goals for the Shift: vss, pain cpntrol, sleep Summary: pt resting in bed, mittens applied for patient safety and to protect lines. Vss, pain controlled, sleeping, continue to monitor. * Plan of Care - Bryson Biggs RRT - 07/06/2021 10:48 AM CDT Jania Redman is a 71 y.o. male wIth a SAH Present on Admission: ??? Hypertension ??? Atrial fibrillation (CMS/HCC) (HCC) ??? Chronic systolic heart failure (CMS/HCC) (HCC) ??? Hypercholesterolemia Social History Tobacco Use Smoking Status Current Every Day Smoker ??? Packs/day: 1.00 ??? Types: Cigarettes ??? Start date: 1964 Smokeless Tobacco Never Used THERAPY: Pt has Breo ordered daily. No respiratory meds on his home medication list. PLAN: Consider DC Breo and evaluate his needs for respiratory medications * Plan of Care - Maame Cohen RN - 07/06/2021 10:41 AM CDT Goals: Clinical Goals for the Shift: vss, pain cpntrol, sleep Summary: * Plan of Care - Lizzeth Huitron MSW - 07/06/2021 8:56 AM CDT Per DCAM rounds with Dividend Deposit Voucher Clerk, Moving Consultant, Charge Nurse, and MD, the patient is medically stable for discharge at this time. Problem: Ensure acute medical needs are met and that patient has a safe discharge plan. Goal: Secure a placement that patient/family are agreeable with and ensure patient has continuum ofcare. Discharge plan: AMARJIT contacted patient's significant other/primary contact, Raine, to follow up on patient's discharge plan and reviewed accepting SNF, [facility]. Per discharge plan discussion, AMARJIT explained multiple SNF referrals may need to be sent due to patient's high acuity care. Raine verbalized understanding. Additionally, Raine requested preference for SNF on the [place] side with high ratings, but is agreeable to SW sending SNF referrals in [place], [place]. Update: SW reviewed SN[facility] ref[facility]. [facility] admissions reported facility can medically accept patient, pending insurance auth. AMARJIT contacted Raine to report discharge plan updates. Raine is agreeable to accepting SNF. Admissions has submitted insurance auth. Insurance: [place] [employer] ADD: 07/07 SW to follow. PAIGE Knowles * ECIN Note - Lizzeth Huitron MSW - 07/05/2021 4:01 PM CDT Patient Information: Wound Info Only Patient Lines/Drains/Airways Status Active Wound / Pressure ulcer / Johnson / Negative Pressure Wound Wound 06/27/21 MASD (Moisture associated skin damage) Perineum , buttocks Date First Assessed 06/27/21 Site Perineum Time First Assessed 1425 Days 8 Wound Type: MASD (Moisture associated skin damage) Wound Description (Comments): , buttocks Assessments Row Name 07/05/21 0755 07/04/21 1958 07/04/21 0805 07/03/21 2238 Wound Status Healing Healing Healing Healing Site Assessment Clean;Color appropriate for ethnicity;Dry;Nord Clean;Color appropriate for ethnicity;Dry;Nord Clean;Color appropriate for ethnicity;Dry;Nord Clean;Color appropriate for ethnicity;Dry;Nord Valentine-wound Assessment Blanchable erythema Blanchable erythema Blanchable erythema Blanchable erythema Margins Attached edges Attached edges Attached edges Attached edges Closure Open to air -- Open to air -- Drainage Amount None -- None -- Dressing Status Open to Air -- Open to Air -- Interventions -- Cleansed;Pharmacological (see MAR) -- -- , Vitals Info Only Vital Signs Report 07/04 0700 07/05 0659 07/05 0700 07/05 1601 Most Recent Temp (??C) 36 - 37 36.3 - 36.7 36.3 (97.3) 07/05 1126 Pulse 73 - 162 81 - 116 92 07/05 1132 Resp 11 - 20 18 18 07/05 1126 SpO2 (%) 90 - 100 94 - 96 94 07/05 1132 FiO2 (%) (%) 21 BP 101/77 - 149/91 108/74 - 143/95 110/76 07/05 1132 MAP (mmHg) 81 - 96 85 - 107 87 07/05 1132 , Oxygen Info Only Default Flowsheet Data (most recent) Endurance Tests No documentation. Default Flowsheet Data (last 48 hours) Oxygen Row Name 07/05/21 1132 07/05/21 1126 07/05/21 1110 07/05/21 0746 07/05/21 0619 Oxygen Therapy/Pulse Ox O2 Therapy -- None (Room air) -- -- None (Room air) SpO2 94 % 96 % 94 % 96 % 95 % Row Name 07/05/21 0017 07/05/21 0010 07/04/21201407/04/21199907/04/21 1938 Oxygen Therapy/Pulse Ox O2 Therapy None (Room air) None (Room air) None (Room air) -- -- FiO2 (%) -- -- 21 % 21 % -- SpO2 93 % 95 % 95 % -- 95 % Patient Activity -- At rest -- -- -- Row Name 07/04/21 1600 07/04/21 1502 07/04/21 1400 07/04/21 1331 07/04/21 1300 Oxygen Therapy/Pulse Ox O2 Therapy None (Room air) None (Room air) None (Room air) None (Room air) None (Room air) SpO2 96 % 98 % 98 % 92 % 92 % Row Name 07/04/21 1245 07/04/21 1228 07/04/21 1210 07/04/21 1200 07/04/21 1150 Oxygen Therapy/Pulse Ox O2 Therapy None (Room air) -- -- None (Room air) None (Room air) SpO2 97 % 95 % 96 % 90 % 100 % Row Name 07/04/21 1140 07/04/21 0802 07/04/21 0406 07/04/21 0351 07/04/21 0323 Oxygen Therapy/Pulse Ox O2 Therapy Supplemental oxygen None (Room air) None (Room air) None (Room air) None (Room air) O2 Del Method Simple mask -- -- -- -- O2 Flow Rate (L/min) 6 L/min -- -- -- -- SpO2 100 % 96 % 96 % 99 % 99 % Patient Activity -- -- -- -- At rest Row Name 07/03/21 2346 07/03/21 2330 07/03/21 2111 Oxygen Therapy/Pulse Ox O2 Therapy None (Room air) None (Room air) None (Room air) SpO2 100 % 95 % 96 % * ECIN Note - Lizzeth Huitron MSW - 07/05/2021 4:00 PM CDT Images from the original note were not included. Patient Information: OT Eval and Treat Last 72 Hours OT Evaluation Row Name 07/04/21 0800 06/30/21 1016 06/29/21 0930 Chart Reviewed -- -- Yes -FK Session Type -- -- Re-Evaluation -FK OT Received On -- -- 06/29/21 -FK Safe Environment -- -- Arm Band Checked;Bed Alarm placed and activated;Call Light within Reach;Notified RN;Patient found in Supine;Overbed Table within Reach Pt left w/ transport -MS Subjective -- Agreeable to Therapy -FK Agreeable to Therapy -FK OT Missed Visit Reason Procedure/testing/appointment Pt to OR on this date -FK -- -- Family/Caregiver Present -- -- No -FK Occupational Therapy-Patient Goal -- -- Pt did not state a specific OT goal but is agreeable to thediscussed goals -FK Precautions -- -- Aspiration;Fall risk;Seizure -FK Weight Bearing Restrictions -- -- Yes -FK LLE Weight Bearing -- -- WBAT -FK Precaution Comments -- -- OTS wore surgical mask, isolation gown, and gloves -FK Additional Comments -- -- Pt unable to provide home living information on this date. -FK Prior Function Comments -- -- Pt unable to provide PLOF information on this date. -FK Grooming: Where assessed -- -- Supine, bed -FK Grooming: Level of assistance -- -- Maximum Assist Max A for task. Total A for balance. -FK Grooming: Assistance with -- -- Increased time to complete;Reaching all areas of head/face;Safety;Sequencing -FK LE Dressing: Where assessed -- -- Supine, bed -FK LE Dressing: Level of assistance -- -- Dependent Dep for task. Total A for balance -FK LE Dressing: Assistance with -- -- Verbal cueing;Supervision/safety;Increased time to complete;Don/doff R sock;Don/doff L sock;Thread RLE into pants;Thread LLE into pants;Thread RLE into underwear;Thread LLE into underwear;Pull up over hips -FK Toileting: Where assessed -- -- Supine, bed -FK Toileting: Level of assistance -- -- Dependent Dep for task. Total A for balance. -FK Toileting: Assistance with -- -- Increased time to complete;Use of bedpan/urinal setup;Clothing management up;Clothing management down;Perineal hygiene;Anterior;Posterior -FK Pain Assessment -- -- No/denies pain -FK Arousal/Alertness -- -- Delayed responses to stimuli -FK Attention Span -- -- Attends with cues to redirect -FK Current communication -- -- Appears Intact -FK Orientation -- -- Oriented x 0 -FK Following Commands -- -- Follows one step commands with repetition -FK Safety Judgment -- -- Unable to assess -FK Awareness of Errors -- -- Unable to assess -FK Insight -- -- Decreased awareness of deficits -FK Problem Solving -- -- Unable to assess -FK Compliance/Behavior -- -- Easy to engage -FK Perseveration -- -- Not present -FK Light Touch -- -- WFL to B UE -FK Fine Motor -- -- WFL -FK Serial Opposition -- -- Good -FK Balance -- -- Yes -FK Static Sitting-Balance Support -- -- Bilateral upper extremity supported;Feet supported on bed in long sit -FK Static Sitting-Sitting Surface -- -- Bed -FK Static Sitting-Level of Assistance -- -- Maximum assistance x2 -FK Static Sitting-Comment/# of Minutes -- -- For elevating trunk and maintaining balance. -FK Bed Mobility -- -- Yes -FK Bed Mobility From 1 -- -- Supine -FK Bed Mobility Type 1 -- -- To and from -FK Bed Mobility to 1 -- -- Rolling right;Rolling left -FK Level of Assistance 1 -- -- Maximum Assist x2 -FK Bed Mobility Comments 1 -- -- For force production and verbal cues for technique. -FK Bed Mobility From 2 -- -- Supine -FK Bed Mobility Type 2 -- -- To and from -FK Bed Mobility to 2 -- -- Long sit -FK Level of Assistance 2 -- -- Maximum Assist x2 -FK Bed Mobility Comments 2 -- -- For force production and verbal cues for technique. -FK Transfer -- -- No 2/2 pt was taken for scan during session -FK RUE Assessment -- -- X -FK RUE Overall AROM -- -- Other (Comment) Pt unable to complete full AROM at all joints. OTS able to assist with PROM. Pt able to complete PROM at all joints. -FK LUE Assessment -- -- X -FK LUE Overall AROM -- -- Other (Comment) Pt unable to complete full AROM at all joints. OTS able to assist with PROM. Pt able to complete PROM at all joints. -FK Comments -- -- Pt followed one step commands with repetition on this date. OTS completed B UE PROM x10 reps at all joints in preparation for ADL tasks. -FK Putting on and taking off regular lower body clothing -- -- 1 -FK Bathing -- -- 2 -FK Toileting -- -- 1 -FK Putting on and taking off upper body clothing -- -- 2 -FK Personal Grooming -- -- 2 -FK Eating Meals -- -- 1 -FK Total Score (range 6-24) -- -- 9 -FK Score Interpretation -- -- 25.33 -FK Problem List -- -- Decreased cognition;Decreased endurance;Decreased balance;Decreased functional mobility;Decreased ADL independence;Decreased IADL independence;Decreased upper extremity strength;Visual deficit -FK Barriers to Discharge -- -- Current Mobility Status;Cognition -MS Barrier Comments -- -- Fall risk -FK Plan -- -- Plan of care initiated;If this is the last note, consider this the discharge summary -FK OT Recommendation -- -- Inpatient Rehab Facility -FK OT Recommendation/Plan Comments -- -- Pt would benefit from continued skilled OT services to improve UE strength, balance, functional mobility, ADL and IADL independence. -FK OT Frequency -- -- 5-7x/wk -FK Treatment/Interventions -- -- ADL/IADL retraining;Balance Training;Bed mobility;Endurance training;Functional activity;Functional mobility training;Functional transfer training;Strengthening;Therapeutic activity;Therapeutic exercise;Transfer training -FK OT Equipment Recommended -- -- Shower chair -FK OT - Next Appointment -- -- 06/30/21 -FK OT Evaluation Complete -- -- Yes -FK User Troy (r) = Recorded By, (t) = Taken By, (c) = Cosigned By Initials Name Effective Dates TOYIN Oliveira, Christine 04/12/21 - Pastora Putnamdith, OT 03/09/19 - OT Treatment Row Name 07/05/21 0904 07/03/21 1103 06/30/21 1016 Session Type Treatment -EL Treatment -FK Treatment -FK OT Received On 07/05/21 -EL 07/03/21 -FK 06/30/21 -FK Safe Environment Arm Band Checked;Call Light within Reach;Notified RN;Patient found in Supine;Overbed Table within Reach Pt left in chair with all needs met - EL Arm Band Checked;Call Light within Reach;Notified RN;Patient found sitting in Chair;Overbed Table within Reach Pt left sitting in chair w/overhead table within reach -FK Arm Band Checked;Call Light within Reach;Notified RN;Patient found in Supine Pt left lying in supine w/ HOB elevated -FK Subjective Agreeable to Therapy -EL Agreeable to Therapy -FK -- Subjective Comment -- Pt reported, I will try -FK -- Family/Caregiver Present No -EL No -FK No -FK Precautions Fall risk -EL Fall risk -FK Fall risk;Seizure -FK Weight Bearing Restrictions Yes -EL Yes -FK Yes -FK LLE Weight Bearing WBAT -EL WBAT -FK WBAT -FK Precaution Comments -- OTS wore surgical mask, isolation gown, and gloves -FK OTS wore surgical mask, isolation gown, and gloves -FK Pain Assessment 0-10 -EL No/denies pain -FK No/denies pain -FK Selby-Yang FACES Pain Rating 0 -EL -- -- Pain Score 5 - Moderate pain -EL -- -- Patient's Stated Pain Goal 1 -EL -- -- Pain Location Leg -EL -- -- Pain Orientation Left -EL -- -- Pain Interventions RN Notified -EL -- -- Balance Yes -EL Yes -FK Yes -FK Static Sitting-Balance Support Feet supported;Bilateral upper extremity supported -EL Bilateral upper extremity supported;Feet supported on arms of chair -FK Bilateral upper extremity supported;Feet supported on bed -FK Static Sitting-Sitting Surface Bed -EL Chair -FK Bed -FK Static Sitting-Level of Assistance Moderate assistance -EL Close supervision -FK Moderate assistance -FK Static Sitting-Comment/# of Minutes safety 2/2 posterior and lateral leaning -EL For safety -FK Forsafety and maintaining upright posture. -FK Dynamic Sitting-Balance Support Feet supported;No upper extremity supported -EL No upper extremity supported;Feet supported -FK Unilateral upper extremity supported;Feet supported on bed -FK Dynamic Sitting-Balance Lateral lean;Forward lean;Reaching for objects -EL Lateral lean;Forward lean;Reaching for objects During functional tasks of grooming and LB dressing and simulated task of toileting -FK Lateral lean;Forward lean;Reaching for objects During functional tasks of LB dressing andgrooming -FK Dynamic Sitting-Sitting Surface Bed -EL Chair -FK Bed -FK Dynamic Sitting-Level of Assistance Maximum assistance -EL Close supervision -FK Moderate assistance -FK Dynamic Sitting-Comments safety 2/2 posterior and lateral leaning -EL For safety -FK For safety andmaintaining upright posture -FK Static Standing-Balance Support Bilateral upper extremity supported using OT and PCT -EL -- -- Static Standing-Standing Surface Floor -EL -- -- Static Standing-Level of Assistance Maximum assistance x2 -EL -- -- Static Standing-Comment/# of Minutes Pt required assist for safety 2/2 decreased hip extension to maintain upright posture -EL -- -- ADLS (WDL) X -EL X -FK X -FK Feeding: Where assessed Chair -EL -- -- Feeding: Level of assistance Moderate Assist -EL -- -- Feeding: Assistance with Hand to mouth;Scooping food -EL -- -- Response to foods trialed Pt able to bring food to mouth once set up on spoon for him. Pt would require intermittent tactile cueing to initiate spoon to mouth movement -EL -- -- Grooming: Where assessed Chair -EL Chair supported sitting -FK Edge of bed sitting -FK Grooming: Level of assistance Moderate Assist -EL Moderate Assist Min A for task. Mod A for balance. -FK Moderate Assist Mod A for task. Mod A for balance. -FK Grooming: Assistance with Increased time to complete;Safety;Reaching all areas of head/face -EL Increased time to complete;Manipulation of containers;Reaching all areas of head/face;Sequencing;Attending to task -FK Increased time to complete;Reaching all areas of head/face;Safety;Attending to task -FK LE Dressing: Where assessed Edge of bed -EL Sitting;Chair -FK Sitting;Edge of bed -FK LE Dressing: Level of assistance Maximum Assist -EL Moderate Assist Mod A for task. Mod A for balance. -FK Maximum Assist Max A for task. Mod A for balance. -FK LE Dressing: Assistance with Don/doff R sock;Don/doff L sock;Thread RLE into pants;Thread LLE into pants;Thread RLE into underwear;Thread LLE into underwear;Pull up over hips;Fasteners;Tie shoes -EL Verbal cueing;Supervision/safety;Increased time to complete;Don/doff R sock;Don/doff L sock;Pull up over hips;Attending to task -FK Verbal cueing;Supervision/safety;Increased time to complete;Don/doffR sock;Don/doff L sock;Thread RLE into pants;Thread LLE into pants;Thread RLE into underwear;ThreadLLE into underwear;Pull up over hips -FK Toileting: Where assessed Chair -EL Chair simulated -FK -- Toileting: Level of assistance Maximum Assist -EL Moderate Assist Mod A for task. Mod A for balance. -FK -- Toileting: Assistance with Increased time to complete;Clothing management up;Clothing management down;Posterior -EL Increased time to complete;Clothing management up;Clothing management down;Anterior;Posterior -FK -- Bed Mobility Yes -EL No 2/2 pt found sitting in chair -FK Yes -FK Bed Mobility From 1 Supine -EL -- Supine -FK Bed Mobility Type 1 To -EL -- To and from -FK Bed Mobility to 1 Edge of bed -EL -- Rolling left -FK Level of Assistance 1 Maximum Assist -EL -- Maximum Assist -FK Bed Mobility Comments 1 Pt required assist for manuevering of BLE, trunk elevation, force production and safety. Pt required max verbal cueing for sequencing of transfer technique -EL -- For force production and safety -FK Bed Mobility From 2 -- -- Supine -FK Bed Mobility Type 2 -- -- To and from -FK Bed Mobility to 2 -- -- Edge of Bed -FK Level of Assistance 2 -- -- Maximum Assist x2 -FK Bed Mobility Comments 2 -- -- For lowering and elevating B LE, for elevating and lowering trunk, and moving hips forward. -FK Transfer Yes -EL No -FK No -FK Transfer From 1 Sit -EL -- -- Transfer Type 1 To and from -EL -- -- Transfer to 1 Stand -EL -- -- Technique 1 Sit to stand;Stand to sit -EL -- -- Transfer Device 1 No device;Hand held assist -EL -- -- Transfer Level of Assistance 1 Maximum Assist x2 -EL -- -- Trials/Comments 1 Pt required assist for safety, balance, and force production. Pt with increased difficulty extending hips to achieve full standing position. - EL -- -- Toilet Transfer From Bed -EL -- -- Toilet Transfer Type To -EL -- -- Toilet Transfer to Standard bedside commode simulated with chair -EL -- -- Toilet Transfer Technique Stand pivot -EL -- -- Toilet Transfer: Equipment Hand hold;No device -EL -- -- Toilet Transfers Maximal assistance x2 -EL -- -- Toilet Transfers Comments Pt required assist for safety, balance, and force production. Pt with increased difficulty extending hips to achieve full standing position. -EL -- -- Overall Cognitive Status -- -- Impaired Pt scored 04/29 on [place] -FK Arousal/Alertness Alert;Delayed responses to stimuli -EL Alert;Appropriate responses to stimuli -FKAlert;Appropriate responses to stimuli -FK Attention Span Attends with cues to redirect -EL Attends with cues to redirect - FK Attends with cues to redirect -FK Memory -- -- Decreased short term memory -FK Current communication Appears Intact -EL Appears Intact -FK Appears Intact -FK Orientation Oriented to person -EL Oriented to person;Oriented to place -FK Oriented to person;Oriented to place -FK Following Commands Follows one step commands with repetition Pt blind and [place] - EL Follows one step commands with repetition -FK Follows one step commands with repetition -FK Safety Judgment Decreased awareness of need for assistance -EL Decreased awareness of need for safety -FK Decreased awareness of need for assistance -FK Awareness of Errors Decreased awareness of errors -EL Assistance required to correct errors made -FK Assistance required to correct errors made -FK Insight Decreased awareness of deficits -EL Decreased awareness of deficits -FK Decreased awareness of deficits -FK Problem Solving Assistance required to implement solutions;Assistance required to identify errors made;Assistance required to generate solutions -EL Assistance required to identify errors made;Assistance required to generate solutions;Assistance required to implement solutions -FK Assistance required to identify errors made;Assistance required to generate solutions;Assistance required to implement solutions -FK Compliance/Behavior Easy to engage -EL Easy to engage -FK Easy to engage -FK Perseveration Not present -EL Not present -FK Not present -FK Comments -- Pt followed one step commands with repetition and increased time on this date. Pt was more alert and awake on this date during session. Pt verbalized understanding to continued POC. -FK Pt followed one step commands with minimal verbal cues during session on this date. Pt demonstrated being more alert and awake during this session as pt participated in [place] screening. Pt tolerated sitting EOB for 5 minutes before laying back down. Pt verbalized understanding to continued POC. -FK Putting on and taking off regular lower body clothing 2 -EL 2 -FK 2 -FK Bathing 2 -EL 2 -FK 2 -FK Toileting 2 -EL 2 -FK 1 -FK Putting on and taking off upper body clothing 2 -EL 2 -FK 2 -FK Personal Grooming 2 -EL 2 -FK 2 -FK Eating Meals 2 -EL 1 -FK 1 -FK Total Score (range 6-24) 12 -EL 11 -FK 10 -FK Score Interpretation 30.60 -EL 29.04 -FK 27.31 -FK Problem List Decreased safe judgment during ADL;Decreased cognition;Decreased endurance;Decreased balance;Decreased functional mobility;Decreased fine motor control;Decreased gross motor control;Decreased ADL independence;Decreased IADL independence;Pain;Decreased ROM -EL Decreased cognition;Decreased endurance;Decreased balance;Decreased functional mobility;Decreased ADL independence;Decreased IADL independence;Decreased upper extremity strength;Visual deficit -FK Decreased cognition;Decreasedendurance;Decreased balance;Decreased functional mobility;Decreased ADL independence;Decreased IADL independence;Decreased upper extremity strength;Visual deficit -FK Barriers to Discharge Current Mobility Status -EL Current Mobility Status -FK Current Mobility Status -FK Barrier Comments -- Fall risk -FK Fall risk -FK Plan Continue with current plan;If this is the last note, consider this the discharge summary -EL Continue with current plan;If this is the last note, consider this the discharge summary -FK Continuewith current plan;If this is the last note, consider this the discharge summary -FK OT Recommendation Inpatient Rehab Facility -EL Inpatient Rehab Facility -FK Inpatient Rehab Facility -FK OT Recommendation/Plan Comments -- Pt would benefit from continued skilled OT services to improve UE strength, balance, functional mobility, ADL and IADL independence. -FK Pt would benefit from continued skilled OT services to improve UE strength, balance, functional mobility, ADL and IADL independence. -FK OT Frequency 5-7x/wk -EL 5-7x/wk -FK 5-7x/wk -FK Treatment/Interventions ADL/IADL retraining;Balance Training;Bed mobility;Endurance training;Functional activity;Functional mobility training;Functional transfer training;Strengthening;Therapeutic act ivity;Therapeutic exercise;Transfer training -EL ADL/IADL retraining;Balance Training;Bed mobility;Endurance training;Functional activity;Functional mobility training;Functional transfer training;Strengthening;Therapeutic activity;Therapeutic exercise;Transfer training -FK ADL/IADL retraining;Balance Training;Bed mobility;Endurance training;Functional activity;Functional mobility training;Functional transfer training;Strengthening;Therapeutic activity;Therapeutic exercise;Transfer training -FK OT Equipment Recommended -- Shower chair -FK Shower chair -FK Progress Slow progress, decreased activity tolerance -EL Progressing toward goals -FK Progressing toward goals -FK OT - Next Appointment 07/06/21 -EL 07/04/21 -FK 07/03/21 - User Troy (r) = Recorded By, (t) = Taken By, (c) = Cosigned By Initials Name Effective Dates Christine Gibson 04/12/21 - Emerita Mckay OT 12/07/20 - OT Notes 07/05/2021 2:39 PM Progress Notes signed by Emerita Duke, OT , PT Eval and Treat Last 72 Hours PT Evaluation No documentation. PT TREATMENT (last 168 hours) PT Treatment Row Name 07/05/21 1110 07/03/21 0828 06/30/21 1505 PT Last Visit Session Type Treatment -JL Treatment -JL -- Safe Environment Call Light within Reach;Patient found sitting in Chair;Chair Alarm placed and activated -JL Call Light within Reach;Patient found in Supine;Overbed Table within Reach;Chair Alarm placed and activated;Notified RN - SHARAN -- Subjective Agreeable to Therapy -JL Agreeable to Therapy -JL -- Subjective Comment -- that's (getting out of bed) not a problem at all -JL -- PT Missed Visit Reason -- -- Procedure/testing/appointment -MR Family/Caregiver Present No -JL No -JL -- Precautions Precautions Fall risk -JL Fall risk -JL -- Weight Bearing Restrictions Yes -JL Yes -JL -- LLE Weight Bearing WBAT -JL WBAT -JL -- Activity Tolerance Activity Tolerance Comments gianfranco: hard -JL gianfranco: easy -JL -- Pain Assessment Pain Assessment 0-10 -JL No/denies pain -JL -- Pain Score 4 -JL -- -- Pain Location Leg -JL -- -- Pain Orientation Left -JL -- -- Pain Interventions RN Notified;Rest -JL -- -- Cognition Arousal/Alertness Alert;Appropriate responses to stimuli;Delayed responses to stimuli -JL Alert -JL-- Orientation Oriented to person -JL Oriented to person -JL -- Following Commands Follows one step commands with repetition pt [place] which may affect command following -JL Follows one step commands with repetition and increased time -JL -- Safety Judgment Decreased awareness of need for safety -JL Decreased awareness of need for safety -JL -- Awareness of Errors Decreased awareness of errors -JL -- -- Balance Balance Yes -JL Yes -JL -- Static Sitting Balance Static Sitting-Balance Support Feet supported;Bilateral upper extremity supported;Posterior support-JL Feet supported;Bilateral upper extremity supported -JL -- Static Sitting-Sitting Surface Chair -JL Bed -JL -- Static Sitting-Level of Assistance Minimum assistance -JL Close supervision -JL -- Static Sitting-Comment/# of Minutes assist to maintain COM over CHERRY; BUE support on arms of chair -JL -- -- Static Standing Balance Static Standing-Balance Support Bilateral upper extremity supported -JL Bilateral upper extremity supported -JL -- Static Standing-Standing Surface Floor -JL Floor -JL -- Static Standing-Level of Assistance Moderate assistance -JL Moderate assistance -JL -- Static Standing-Comment/# of Minutes use of w/w; performed two static standing bouts, 10 seconds each; assist to prevent posterior lean/LOB throughout and verbal cues for safe hand placement on w/w and to not advance w/w -JL -- -- Equipment Use Equipment Use Comments gait belt used for mobility -JL gait belt -JL -- Bed Mobility Bed Mobility No -JL Yes -JL -- Bed Mobility 1 Bed Mobility From 1 -- Supine -JL -- Bed Mobility Type 1 -- To -JL -- Bed Mobility to 1 -- Edge of bed -JL -- Level of Assistance 1 -- Minimum Assist -JL -- Bed Mobility Comments 1 -- assist to elevate trunk -JL -- Transfers Transfer Yes -JL Yes -JL -- Transfer 1 Transfer From 1 Sit -JL Sit -JL -- Transfer Type 1 To and from -JL To and from -JL -- Transfer to 1 Stand -JL Stand -JL -- Transfer Device 1 Wheeled walker -JL No device -JL -- Transfer Level of Assistance 1 Moderate Assist;Maximal verbal cues -JL Moderate Assist -JL -- Trials/Comments 1 first standing bout: assist for force production with standing and balance to prevent posterior LOB; max cues for safe hand placement throughout transfers -JL assist for force production and balance with standing; assist to control descent with sitting -JL -- Transfers 2 Transfer From 2 Sit -JL Bed -JL -- Transfer Type 2 To and from -JL To -JL -- Transfer to 2 Stand -JL Chair with arms -JL -- Technique 2 -- To right;Stand pivot -JL -- Transfer Device 2 Wheeled walker -JL No device -JL -- Transfer Level of Assistance 2 Maximum Assist;Maximal verbal cues -JL Moderate Assist;Moderate verbal cues -JL -- Trials/Comments 2 second standing bout: assist for force production and balance to prevent posterior LOB; cues for safe hand placement throughout -JL assist for force production and balance, cues forsafe hand placement -JL -- Ambulation Functional Ambulation Category 0 -JL 1 -JL -- Ambulation No -JL No -JL -- Ambulation 1 Ambulation Comments 1 unsafe to attempt this date 2/2 poor standing balance -JL not attempted 2/2 poor balance and safety concerns -JL -- Stairs Stairs No -JL No -JL -- Basic Mobility - 6 Click How much difficulty does the patient have: Turning over in bed 3 -JL 3 -JL -- How much difficulty does the patient currently have: Sitting down and standing up from a chair witharms? 2 -JL 2 -JL -- How much difficulty does the patient have: Moving from lying on back to sitting on the side of the bed? 3 -JL 3 -JL -- How much difficulty does the patient have: Moving to and from a bed to a chair including wheelchair? 2 -JL 2 -JL -- How much help does the patient currently need: Walk in hospital room? 2 -JL 1 - JL -- How much help from another person does the patient currently need: Climbing 3-5 steps with a railing? 1 -JL 1 -JL -- Total 6 Click Score (range 6-24) 13 -JL 12 -JL -- Assessment Prognosis Good -JL Good -JL -- Problem List Gait deviations;Decreased strength;Decreased range of motion;Decreased endurance;Impaired balance;Decreased mobility;Decreased coordination;Decreased cognition;Decreased safety awareness;Impaired vision;Impaired hearing;Decreased skin integrity -JL Gait deviations;Decreased strength;Decreased range of motion;Decreased endurance;Impaired balance;Decreased mobility;Decreased coordination;Decreased cognition;Decreased safety awareness;Impaired vision;Impaired hearing;Decreased skin integrity -JL -- Plan Plan Continue with current plan;If this is the last note, consider this the discharge summary -JL Continue with current plan;If this is the last note, consider this the discharge summary -JL -- Recommendation/Plan PT Recommendation/Plan Inpatient Rehab Facility -JL Half-Way Facility -JL -- PT Frequency 3-5x/wk -JL 3-5x/wk -JL -- Treatment/Interventions Balance Training;Bed mobility;Endurance training;Functional activity;Functional transfer training;Gait training;Neuromuscular re-education;Positioning;Range of motion;Stair tra ining;Strengthening;Therapeutic activity;Therapeutic exercise;Transfer training -JL Balance Training;Bed mobility;Endurance training;Functional activity;Functional transfer training;Gait training;Neuromuscular re- education;Positioning;Range of motion;Stair training;Strengthening;Therapeutic activity;Therapeutic exercise;Transfer training -JL -- Progress Slow progress, decreased activity tolerance -JL Progressing toward goals -JL -- User Troy (r) = Recorded By, (t) = Taken By, (c) = Cosigned By Initials Name Effective Dates Kell Salgado, PT 12/24/19 - Kirill Gu DPT 08/25/20 - PT Notes 07/05/2021 12:00 PM Progress Notes signed by Kirill Dean DPT , [employer] Eval and Treat Last 72 Hours [employer] Evaluation Row Name 07/04/21 0803 [employer] Missed Visit Reason Procedure/testing/appointment;NPO cx. NPO for OR today. -MS [employer] Frequency of Services Other (comment) pending MBS -MS [employer] - Next Appointment 07/05/21 -MS User Troy (r) = Recorded By, (t) = Taken By, (c) = Cosigned By Initials Name Effective Dates Sadnra Crowder, [employer] 03/24/21 - [employer] Treatment Row Name 07/03/21 1405 06/29/21 1319 06/29/21 1040 Session Type Treatment -CJA (r) GABRIELA (c) Treatment - Treatment - [employer] Received On 07/03/21 -GABRIELAA (r) GABRIELA (c) 06/29/21 - 06/29/21 - Safe Environment -- Arm Band Checked;Notified RN;Session Completed Bedside - -- [employer] Missed Visit Reason -- -- -- Pt off the floor. - Family/Caregiver Present -- No - -- Pain Assessment 0-10 -GABRIELAA (r) GABRIELA (c) No/denies pain - -- Pain Score 0 - No pain -GABRIELAA (r) GABRIELA (c) -- -- [employer] Recommendation (Add'l Services) Other pending [facility] [place] -GABRIELAA (r) GABRIELA (c) Inpatient Rehab Facility - -- [employer] Frequency of Services Other (comment) pending [facility] [place] -CJA (r) CJ (c) 2-4x/wk - -- [employer] - Next Appointment -- 06/30/21 - -- Diet Solids Recommendation Dysphagia diet-Phase 1 pending [facility] [place] -GABRIELAA (r) GABRIELA (c) Dysphagia diet-Phase 1 - -- Diet Liquids Recommendations NPO for liquids pending [facility] [place] -CJA (r) CJ (c) NPO for liquids - -- Recommended Form of Medications Crushed;With puree pending [facility] [place] -GABRIELAA (r) CJ (c) Crushed;With puree - -- Assistance with feeding/swallowing Full supervision with meals -GABRIELAA (r) CJ (c) Full supervision with meals - -- Compensatory Strategies/Modifications Small bites;Slow rate -GABRIELAA (r) CJ (c) Small bites;Slow rate - -- Postural Recommendations Upright -GABRIELAA (r) CJ (c) Upright 90 degrees - -- Dysphagia Diagnosis -- Moderate oral stage dysphagia;Mild to moderate pharyngeal stage dysphagia - -- Swallow- Next Appointment 07/04/21 -CJA (r) CJ (c) 06/30/21 - 06/30/21 - User Troy (r) = Recorded By, (t) = Taken By, (c) = Cosigned By Initials Name Effective Dates JAZZMINE GabrielCecyie 04/19/21 - Queta Pires, [employer] 07/12/20 - Chyna Ramirez, JOE 04/18/20 - Clinical Swallow Study No documentation. [employer] Notes Notes from 07/03/21 through 07/05/21 No notes of this type exist for this encounter. * [facility] Note - Lizzeth Huitron MSW - 07/05/2021 4:00 PM CDT Patient Information: Meds and Admin Active Only All Meds/Most Recent Administrations All Meds/Most Recent Administrations sodium chloride 0.9% flush 0.5-20 mL [[id number]] Ordering Provider: Belinda Shaffer MD PhD Status: Verified Ordered On: 06/11/211914 Start: 06/11/212199 Dose (Remaining/Total): 0.5-20 mL (--/--) Route: intra-catheter Frequency: Every 8 hours scheduled Rate/Duration: -- / -- Admin Instructions: Flush volume based on line type and size. Timestamps Action Dose Route Other Information 07/05/21 1400 Given 10 mL intra-catheter Performed by: Mercy Guajardo RN sodium chloride 0.9% flush 0.5-20 mL [[id number]] Ordering Provider: Belinda Shaffer MD PhD Status: Verified Ordered On: 06/11/211914 Start: 06/11/211912 Dose (Remaining/Total): 0.5-20 mL (--/--) Route: intra-catheter Frequency: As needed Rate/Duration: -- / -- Admin Instructions: Flush volume based on line type and size. Flush before and after each use. Timestamps Action Dose Route Other Information 06/25/21 0745 Given 10 mL intra-catheter Performed by: Lenka De Santiago, GAURAV labetaloL (NORMODYNE,TRANDATE) injection 10 mg [[id number]] Ordering Provider: Prosper Rodrigues MD Status: Completed (Past End Date/Time) Ordered On: 06/12/21420 Starts/Ends: 06/12/21 0500 - 06/12/21 0437 Dose (Remaining/Total): 10 mg (0/1) Route: intravenous Frequency: Once Rate/Duration: 60 mL/hr / 2 Minutes Timestamps Action Dose / Rate / Duration Route Other Information 06/12/21 043 Given 10 mg 60 mL/hr 2 Minutes intravenous Performed by: Ihsan Cardenas RN Scanned Package: [id number] labetaloL (NORMODYNE,TRANDATE) injection 10 mg [[id number]] Ordering Provider: Cassie Trent NP Status: Completed (Past End Date/Time) Ordered On: 06/12/211120 Starts/Ends: 06/12/21 1200 - 06/12/21 112 Dose (Remaining/Total): 10 mg (0/1) Route: intravenous Frequency: Once Rate/Duration: 60 mL/hr / 2 Minutes Line Med Link Info Comment Peripheral IV 06/12/21 20 G Right Forearm 06/12/211124 by Suyapa Shi RN -- Timestamps Action Dose / Rate / Duration Route Other Information 06/12/211124 Given 10 mg 60 mL/hr 2 Minutes intravenous Performed by: Suyapa Shi RN magnesium sulfate 4 g/100 mL in water (premix) 4 g [[id number]] Ordering Provider: Ying Thompson MD Status: Completed (Past End Date/Time) Ordered On: 06/12/211121 Starts/Ends: 06/12/21 1200 - 06/12/21 1333 Dose (Remaining/Total): 4 g (0/1) Route: intravenous Frequency: Once Rate/Duration: -- / 90 Minutes Line Med Link Info Comment Peripheral IV 06/12/21 20 G Right Forearm 06/12/21 120 by Suyapa Shi RN -- Timestamps Action Dose / Duration Route Other Information 06/12/21 120 New Bag 4 g 90 Minutes intravenous Performed by: Suyapa Shi RN pravastatin (PRAVACHOL) tablet 40 mg [[id number]] Ordering Provider: Cassie Trent NP Status: Dispensed Ordered On: 06/12/21 1126 Start: 06/13/21 0900 Dose (Remaining/Total): 40 mg (--/--) Route: feeding tube Frequency: Daily Rate/Duration: -- / -- Timestamps Action Dose Route Other Information 07/05/21 0754 Given 40 mg feeding tube Performed by: Mercy Guajardo RN Scanned Package: [id number], 0588-5866-03 yneuawid-dix-whwjixr gluconate (CENTRUM) 0.6 mg iron/mL oral liquid 15 mL [[id number]] Ordering Provider: Cassie Trent NP Status: Dispensed Ordered On: 06/12/21 1201 Start: 06/12/21 1245 Dose (Remaining/Total): 15 mL (--/--) Route: feeding tube Frequency: Daily Rate/Duration: -- / -- Timestamps Action Dose Route Other Information 07/05/21 0755 Given 15 mL feeding tube Performed by: Mercy Guajardo RN Scanned Package: [id number] potassium chloride (KLOR-CON) packet 40 mEq [[id number]] Ordering Provider: Cassie Trent NP Status: Completed (Past End Date/Time) Ordered On: 06/12/21 144 Starts/Ends: 06/12/21 1515 - 06/12/21 1459 Dose (Remaining/Total): 40 mEq (0/1) Route: feeding tube Frequency: Once Rate/Duration: -- / -- Admin Instructions: Dissolve one packet in at least 120 mL of cold water or other beverage prior toadministration. Timestamps Action Dose Route Other Information 06/12/21 1459 Given 40 mEq feeding tube Performed by: Suyapa Shi RN Scanned Package: [id number], [address]-7 metoprolol tartrate (LOPRESSOR) immediate release tablet 25 mg [[id number]] Ordering Provider: Cassie Trent NP Status: Completed (Past End Date/Time) Ordered On: 06/12/21 1448 Starts/Ends: 06/12/21 153 - 06/12/211457 Dose (Remaining/Total): 25 mg (0/1) Route: feeding tube Frequency: Once Rate/Duration: -- / -- Timestamps Action Dose Route Other Information 06/12/211457 Given 25 mg feeding tube Performed by: Suyapa Shi RN Scanned Package: [id number] metoprolol (LOPRESSOR) injection 5 mg [[id number]] Ordering Provider: Cassie Trent NP Status: Completed (Past End Date/Time) Ordered On: 06/12/211453 Starts/Ends: 06/12/21 153 - 06/12/21 145 Dose (Remaining/Total): 5 mg (0/1) Route: intravenous Frequency: Once Rate/Duration: -- / 1 Minutes Line Med Link Info Comment Peripheral IV 06/12/21 20 G Right Forearm 06/12/211457 by Suyapa Shi RN -- Timestamps Action Dose / Duration Route Other Information 06/12/211457 Given 5 mg 1 Minutes intravenous Performed by: Suyapa Shi RN Scanned Package: 0789-2198-67 acetaminophen (TYLENOL) tablet 650 mg [[id number]] Ordering Provider: Cassie Trent NP Status: Dispensed Ordered On: 06/12/211551 Start: 06/12/21 155 Dose (Remaining/Total): 650 mg (--/--) Route: feeding tube Frequency: Every 4 hours PRN Rate/Duration: -- / -- Timestamps Action Dose Route Other Information 06/18/21 0035 Given 650 mg feeding tube Performed by: Little Hawkins RN Scanned Package: 87238-842-26, 68645-107-77 thiamine (VITAMIN B-1) 500 mg in sodium chloride 0.9% 100 mL IVPB [[id number]] Ordering Provider: Cassie Trent NP Status: Completed (Past End Date/Time) Ordered On: 06/12/21 155 Starts/Ends: 06/12/21 1630 - 06/14/21 0907 Dose (Remaining/Total): 500 mg (0/6) Route: intravenous Frequency: Every 8 hours Rate/Duration: 210 mL/hr / 30 Minutes Line Med Link Info Comment Peripheral IV 06/12/21 20 G Anterior;Proximal;Right Forearm 06/12/21 1929 by Suyapa Shi RN -- Timestamps Action Dose / Rate / Duration Route Other Information 06/14/21 0837 New Bag 500 mg 210 mL/hr 30 Minutes intravenous Performed by: Latha Chaves RN thiamine (VITAMIN B-1) 250 mg in sodium chloride 0.9% 100 mL IVPB [[id number]] Ordering Provider: Cassie Trent NP Status: Completed (Past End Date/Time) Ordered On: 06/12/21 1552 Starts/Ends: 06/14/21 1630 - 06/18/21 0839 Dose (Remaining/Total): 250 mg (0/5) Route: intravenous Frequency: Every 24 hours scheduled Rate/Duration: 205 mL/hr / 30 Minutes Line Med Link Info Comment Peripheral IV 06/15/21 20 G Right Antecubital 06/17/21 0911 by Taryn Suarez RN -- Timestamps Action Dose / Rate / Duration Route Other Information 06/18/21 0809 New Bag 250 mg 205 mL/hr 30 Minutes intravenous Performed by: Taryn Suarez RN Lactated Ringer's (LR) bolus 500 mL [[id number]] Ordering Provider: Katia Champion NP Status: Completed (Past End Date/Time) Ordered On: 06/12/21 171 Starts/Ends: 06/12/21 1745 - 06/12/21 1830 Dose (Remaining/Total): 500 mL (0/1) Route: intravenous Frequency: Once Rate/Duration: 500 mL/hr / 1 Hours Timestamps Action Dose / Rate / Duration Route Other Information 06/12/21 1730 New Bag 500 mL 500 mL/hr 1 Hours intravenous Performed by: Suyapa Shi, GAURAV amiodarone (NEXTERONE) 150 mg/100 mL (1.5 mg/mL) in dextrose (premix) 150 mg [[id number]] Ordering Provider: Candace Cummings NP Status: Completed (Past End Date/Time) Ordered On: 06/13/21 0256 Starts/Ends: 06/13/21 0330 - 06/13/21 0313 Dose (Remaining/Total): 150 mg (0/1) Route: intravenous Frequency: Once Rate/Duration: 600 mL/hr / 10 Minutes Admin Instructions: Use filter 0.22 micron or less Timestamps Action Dose / Rate / Duration Route Other Information 06/13/21 0303 New Bag 150 mg 600 mL/hr 10 Minutes intravenous Performed by: Aby Toney RN Scanned Package: 31898-455-37 chlorhexidine (PERIDEX) 0.12 % solution 15 mL [[id number]] Ordering Provider: Cassie Trent NP Status: Completed (Past End Date/Time) Ordered On: 06/13/21 0748 Starts/Ends: 06/13/21 0830 - 06/13/21 0820 Dose (Remaining/Total): 15 mL (0/1) Route: swish & spit Frequency: Once Rate/Duration: -- / -- Timestamps Action Dose Route Other Information 06/13/21 08 Given 15 mL swish & spit Performed by: Latha Chaves RN Scanned Package: 19921-336-45 amiodarone (PACERONE) tablet 400 mg [[id number]] Ordering Provider: Katia Champion NP Status: Completed (Past End Date/Time) Ordered On: 06/13/21 122 Starts/Ends: 06/14/21 0900 - 06/18/21 211 Dose (Remaining/Total): 400 mg (0/15) Route: feeding tube Frequency: 3 times daily Rate/Duration: -- / -- Timestamps Action Dose Route Other Information 06/18/212110 Given 400 mg feeding tube Performed by: Little Hawkins RN Scanned Package: 9017-6897-58, 4258-3482-34, 1198-7322-97, 7576-6778-80 Lactated Ringer's (LR) bolus 500 mL [[id number]] Ordering Provider: Katia Champion NP Status: Completed (Past End Date/Time) Ordered On: 06/13/21 1228 Starts/Ends: 06/13/21 1300 - 06/13/21 1338 Dose (Remaining/Total): 500 mL (0/1) Route: intravenous Frequency: Once Rate/Duration: 500 mL/hr / 1 Hours Timestamps Action Dose / Rate / Duration Route Other Information 06/13/21 1238 New Bag 500 mL 500 mL/hr 1 Hours intravenous Performed by: Latha Chaves RN Scanned Package: 4318-5079-80 levETIRAcetam (KEPPRA) tablet 500 mg [[id number]] Ordering Provider: Cassie Trent NP Status: Completed (Past End Date/Time) Ordered On: 06/13/21 1309 Starts/Ends: 06/13/21 1345 - 06/19/21 0256 Dose (Remaining/Total): 500 mg (0/12) Route: feeding tube Frequency: 2 times daily Rate/Duration: -- / -- Timestamps Action Dose Route Other Information 06/19/21 025 Given 500 mg feeding tube Performed by: Little Hawkins RN Comments: loss of NG Scanned Package: 26697-813-96 perflutren protein-a (OPTISON) 0.22 mg/mL injection - ADS Override Pull [[id number]] Status: Completed (Past End Date/Time) Ordered On: 06/13/21 160 Starts/Ends: 06/13/21 1606 - 06/13/21 1629 Dose (Remaining/Total): -- (0/1) Route: -- Frequency: -- Rate/Duration: -- / -- Admin Instructions: Created by cabinet override Note to pharmacy: Created by cabinet override Timestamps Action Dose / Rate / Duration Route / Site / Linked Line Other Information 06/13/21 1629 Contrast Given -- -- Performed by: Latha Chaves RN furosemide (LASIX) 10 mg/mL injection 20 mg [[id number]] Ordering Provider: Candace Cummings NP Status: Completed (Past End Date/Time) Ordered On: 06/14/21 0127 Starts/Ends: 06/14/21 0200 - 06/14/21 0137 Dose (Remaining/Total): 20 mg (0/1) Route: intravenous Frequency: Once Rate/Duration: -- / -- Admin Instructions: For IV push: administer doses < 160 mg at a rate of 20 -40 mg/min. Doses >/= 160 mg should be administered no faster than 4 mg/min. Room temperature only Timestamps Action Dose Route Other Information 06/14/21 0137 Given 20 mg intravenous Performed by: Aby Toney RN Scanned Package: [id number] gadoterate meglumine (DOTAREM) 0.5 mmol/mL injection 15 mL [[id number]] Ordering Provider: Cassie Trent NP Status: Completed (Past End Date/Time) Ordered On: 06/14/21242 Starts/Ends: 06/14/21242 - 06/14/21 024 Dose (Remaining/Total): 15 mL (0/1) Route: intravenous Frequency: Once in imaging Rate/Duration: -- / -- Line Med Link Info Comment Peripheral IV 06/12/21 20 G Right Forearm 06/14/21 024 by Debbi Castano, RT -- Timestamps Action Dose Route Other Information 06/14/21 024 Contrast Given 15 mL intravenous Performed by: Debbi Castano, RT Scanned Package: [address]-1 magnesium sulfate 2 g/50 mL in water (premix) 2 g [[id number]] Ordering Provider: Cassie Trent NP Status: Completed (Past End Date/Time) Ordered On: 06/14/21953 Starts/Ends: 06/14/211029 - 06/14/21 1114 Dose (Remaining/Total): 2 g (0/1) Route: intravenous Frequency: Once Rate/Duration: -- / 60 Minutes Timestamps Action Dose / Duration Route Other Information 06/14/21 1014 New Bag 2 g 60 Minutes intravenous Performed by: Latha Chaves RN Scanned Package: 3949-3443-19 potassium chloride (KLOR-CON) packet 40 mEq [[id number]] Ordering Provider: Cassie Trent NP Status: Completed (Past End Date/Time) Ordered On: 06/14/21953 Starts/Ends: 06/14/211029 - 06/14/21 1014 Dose (Remaining/Total): 40 mEq (0/1) Route: feeding tube Frequency: Once Rate/Duration: -- / -- Admin Instructions: Recommend to dilute each 15 mL with at least 6 ounces of water or juice prior to administration. Dissolve one packet in at least 120 mL of cold water or other beverage prior to administration. Timestamps Action Dose Route Other Information 06/14/21 1014 Given 40 mEq feeding tube Performed by: Latha Chaves RN Scanned Package: [address]-1, [address]-6 sodium chloride 0.9% 0.9% infusion - ADS Override Pull [[id number]] Status: Dispensed (Past End Date/Time) Ordered On: 06/15/21204 Starts/Ends: 06/15/21204 - 06/15/211413 Dose (Remaining/Total): -- (04/08) Route: -- Frequency: -- Rate/Duration: -- / -- Admin Instructions: Created by cabinet override Note to pharmacy: Created by [employer] override (No admins scheduled or recorded for this medication) rocuronium (ZEMURON) 10 mg/mL injection - ADS Override Pull [[id number]] Status: Dispensed (Past End Date/Time) Ordered On: 06/15/21212 Starts/Ends: 06/15/21212 - 06/15/211413 Dose (Remaining/Total): -- (04/08) Route: -- Frequency: -- Rate/Duration: -- / -- Admin Instructions: Created by cabinet override Note to pharmacy: Created by cabinet override WARNING: Causes respiratory paralysis. Patient mustbe ventilated. (No admins scheduled or recorded for this medication) etomidate (AMIDATE) 2 mg/mL injection - ADS Override Pull [[id number]] Status: Completed (Past End Date/Time) Ordered On: 06/15/21212 Starts/Ends: 06/15/21212 - 06/15/21 023 Dose (Remaining/Total): -- () Route: -- Frequency: -- Rate/Duration: -- / -- Admin Instructions: Created by cabinet override Note to pharmacy: Created by [employer] Timestamps Action Dose / Rate / Duration Route / Site / Linked Line Other Information 06/15/21233 Given -- -- Performed by: Aby Toney RN fentaNYL (SUBLIMAZE) 50 mcg/mL preservative free injection - ADS Override Pull [[id number]] Status: Completed (Past End Date/Time) Ordered On: 06/15/21213 Starts/Ends: 06/15/21213 - 06/15/21237 Dose (Remaining/Total): -- (01) Route: -- Frequency: -- Rate/Duration: -- / -- Admin Instructions: Created by cabinet override Note to pharmacy: Created by cabinet override Timestamps Action Dose Route / Site / Linked Line Other Information 06/15/21237 Given 100 mcg -- Performed by: Aby Toney RN phenylephrine (CON-SYNEPHRINE) 1 mg/10 mL (100 mcg/mL) in sodium chloride 0.9% (premix) - ADS Override Pull [[id number]] Status: Completed (Past End Date/Time) Ordered On: 06/15/21218 Starts/Ends: 06/15/21218 - 06/15/21236 Dose (Remaining/Total): -- (0) Route: -- Frequency: -- Rate/Duration: -- / -- Admin Instructions: Created by cabinet override Note to pharmacy: Created by [employer] override For IV push, administer over 30 seconds. Timestamps Action Dose Route / Site / Linked Line Other Information 06/15/21236 Given 200 mcg -- Performed by: Aby Toney RN fentaNYL (SUBLIMAZE) 50 mcg/mL preservative free injection - ADS Override Pull [[id number]] Status: Dispensed (Past End Date/Time) Ordered On: 06/15/21239 Starts/Ends: 06/15/21239 - 06/15/21 1444 Dose (Remaining/Total): -- (04/08) Route: -- Frequency: -- Rate/Duration: -- / -- Admin Instructions: Created by cabinet override Note to pharmacy: Created by cabinet override (No admins scheduled or recorded for this medication) fentaNYL (SUBLIMAZE) 50 mcg/mL preservative free injection - ADS Override Pull [[id number]] Status: Completed (Past End Date/Time) Ordered On: 06/15/21253 Starts/Ends: 06/15/21 025 - 06/15/216 Dose (Remaining/Total): -- () Route: -- Frequency: -- Rate/Duration: -- / -- Admin Instructions: Created by cabinet override Note to pharmacy: Created by [employer] Timestamps Action Dose Route / Site / Linked Line Other Information 06/15/21315 Given 50 mcg -- Performed by: Aby Toney RN sodium chloride 5% (HYPERTONIC) 5 % solution - ADS Override Pull [[id number]] Status: Dispensed (Past End Date/Time) Ordered On: 06/15/21 110 Starts/Ends: 06/15/21 1109 - 06/15/21 2314 Dose (Remaining/Total): -- (04/08) Route: -- Frequency: -- Rate/Duration: -- / -- Admin Instructions: Created by cabinet override Note to pharmacy: Created by cabinet override (No admins scheduled or recorded for this medication) sodium chloride 0.9% 0.9% infusion - ADS Override Pull [[id number]] Status: Dispensed (Past End Date/Time) Ordered On: 06/15/21 1248 Starts/Ends: 06/15/21 1248 - 06/16/21 0059 Dose (Remaining/Total): -- (04/08) Route: -- Frequency: -- Rate/Duration: -- / -- Admin Instructions: Created by cabinet override Note to pharmacy: Created by [employer] override (No admins scheduled or recorded for this medication) metoprolol tartrate immediate release capsule 12.5 mg [[id number]] Ordering Provider: Candido Uribe MD Status: Dispensed (Past End Date/Time) Ordered On: 06/16/21 1136 Starts/Ends: 06/16/21 1215 - 06/17/21 1215 Dose (Remaining/Total): 12.5 mg (04/08) Route: oral Frequency: Once Rate/Duration: -- / -- (No admins scheduled or recorded for this medication) potassium chloride (KLOR-CON) packet 40 mEq [[id number]] Ordering Provider: Little Hawkins RN Status: Completed (Past End Date/Time) Ordered On: 06/16/212320 Starts/Ends: 06/17/21 0000 - 06/17/21213 Dose (Remaining/Total): 40 mEq (0/2) Route: feeding tube Frequency: Every 2 hours Rate/Duration: -- / -- Admin Instructions: Total 80 mEq. Recommend to dilute each 15 mL with at least 6 ounces of water orjuice prior to administration. Dissolve one packet in at least 120 mL of cold water or other beverage prior to administration. Timestamps Action Dose Route Other Information 06/17/21213 Given 40 mEq feeding tube Performed by: Little Hawkins RN Scanned Package: [address]-5, [address]-3 magnesium sulfate 4 g/100 mL in water (premix) 4 g [[id number]] Ordering Provider: Digna Carter NP Status: Completed (Past End Date/Time) Ordered On: 06/16/212327 Starts/Ends: 06/17/21 0000 - 06/17/21 0110 Dose (Remaining/Total): 4 g (0/1) Route: intravenous Frequency: Once Rate/Duration: -- / 90 Minutes Line Med Link Info Comment Peripheral IV 06/15/21 20 G Right Antecubital 06/16/212339 by Little Hawkins RN -- Timestamps Action Dose / Duration Route Other Information 06/16/212339 New Bag 4 g 90 Minutes intravenous Performed by: Little Hawkins RN Scanned Package: 05508-165-13 ioversoL (OPTIRAY 350) syringe syringe 100 mL [[id number]] Ordering Provider: Patricia Ferrer NP Status: Completed (Past End Date/Time) Ordered On: 06/17/212247 Starts/Ends: 06/17/212247 - 06/17/212257 Dose (Remaining/Total): 100 mL (0/1) Route: intravenous Frequency: Once in imaging Rate/Duration: -- / -- Line Med Link Info Comment Peripheral IV 06/15/21 20 G Left Forearm 06/17/212257 by Dianne Plummer, RT -- Timestamps Action Dose Route Other Information 06/17/212257 Contrast Given 95 mL intravenous Performed by: Dianne Plummer, RT potassium chloride (KLOR-CON) packet 40 mEq [[id number]] Ordering Provider: Candace Cummings NP Status: Completed (Past End Date/Time) Ordered On: 06/19/2149 Starts/Ends: 06/19/21199 - 06/19/21447 Dose (Remaining/Total): 40 mEq (0/2) Route: feeding tube Frequency: Every 2 hours Rate/Duration: -- / -- Admin Instructions: Total 80 mEq. Recommend to dilute each 15 mL with at least 6 ounces of water orjuice prior to administration. Dissolve one packet in at least 120 mL of cold water or other beverage prior to administration. Timestamps Action Dose Route Other Information 06/19/21447 Given 40 mEq feeding tube Performed by: Little Hawkins RN Scanned Package: [address]-0, [address]-2 magnesium sulfate 2 g/50 mL in water (premix) 2 g [[id number]] Ordering Provider: Candace Cummings NP Status: Completed (Past End Date/Time) Ordered On: 06/19/2149 Starts/Ends: 06/19/21129 - 06/19/21318 Dose (Remaining/Total): 2 g (0/1) Route: intravenous Frequency: Once Rate/Duration: -- / 60 Minutes Line Med Link Info Comment Peripheral IV 06/15/21 20 G Right Antecubital 06/19/21218 by Little Hawikns RN -- Timestamps Action Dose / Duration Route Other Information 06/19/21218 New Bag 2 g 60 Minutes intravenous Performed by: Little Hawkins RN Scanned Package: 9658-9202-79 heparin 5,000 unit/mL injection 5,000 Units [[id number]] Ordering Provider: Wellington Crenshaw NP Status: Completed (Past End Date/Time) Ordered On: 06/19/21 1725 Starts/Ends: 06/19/21 2100 - 06/19/211999 Dose (Remaining/Total): 5,000 Units (0/1) Route: subcutaneous Frequency: Once Rate/Duration: -- / -- Timestamps Action Dose Route / Site Other Information 06/19/211999 Given 5,000 Units subcutaneous Left Lower Abdomen Performed by: Zaria Melendez RN Scanned Package: 8902-7390-63 pantoprazole (PROTONIX) 4 mg/mL injection 40 mg [[id number]] Ordering Provider: Mily Cuevas NP Status: Dispensed Ordered On: 06/20/21 1139 Start: 06/21/21 0900 Dose (Remaining/Total): 40 mg (--/--) Route: intravenous Frequency: Daily Rate/Duration: -- / 2 Minutes Admin Instructions: For IV Push administration for adults- 40 mg vial: add 10 mL of sodium chloride 0.9% to achieve a final concentration of 4 mg/mL Line Med Link Info Comment Peripheral IV 06/15/21 20 G Left Forearm 06/24/21 0811 by Lenka De Santiago RN -- Peripheral IV 06/19/21 20 G Left Forearm 07/01/21 0827 by Milagros Barrientos RN -- Peripheral IV 06/25/21 20 G Anterior;Right Forearm 07/02/21 1248 by Milagros Barrientos RN -- Peripheral IV 07/02/21 20 G Left;Posterior Hand 07/03/21 1051 by Milagros Barrientos RN -- Peripheral IV 07/03/21 20 G Anterior;Left Forearm 07/04/21 0805 by Mercy Guajardo RN -- Timestamps Action Dose / Duration Route Other Information 07/05/21 0754 Given 40 mg 2 Minutes intravenous Performed by: Mercy Guajardo RN Scanned Package: 28762-547-96 perflutren protein-a (OPTISON) 0.22 mg/mL injection - ADS Override Pull [[id number]] Status: Dispensed (Past End Date/Time) Ordered On: 06/20/21 1614 Starts/Ends: 06/20/21 161 - 06/21/21 0414 Dose (Remaining/Total): -- (1/1) Route: -- Frequency: -- Rate/Duration: -- / -- Admin Instructions: Created by cabinet override Note to pharmacy: Created by cabinet override (No admins scheduled or recorded for this medication) potassium chloride (KLOR-CON) packet 40 mEq [[id number]] Ordering Provider: Candace Cummings NP Status: Completed (Past End Date/Time) Ordered On: 06/20/21 2242 Starts/Ends: 06/20/21 2315 - 06/21/21 0009 Dose (Remaining/Total): 40 mEq (0/1) Route: feeding tube Frequency: Once Rate/Duration: -- / -- Admin Instructions: Recommend to dilute each 15 mL with at least 6 ounces of water or juice prior to administration. Dissolve one packet in at least 120 mL of cold water or other beverage prior to administration. Timestamps Action Dose Route Other Information 06/21/21 000 Given 40 mEq feeding tube Performed by: Sharonda Manrique RN Scanned Package: [address]-7, [address]-4 ramelteon (ROZEREM) tablet 8 mg [[id number]] Ordering Provider: Tamiko Ray NP Status: Dispensed Ordered On: 06/21/21 0844 Start: 06/21/21 1800 Dose (Remaining/Total): 8 mg (--/--) Route: feeding tube Frequency: Nightly Rate/Duration: -- / -- Timestamps Action Dose Route Other Information 07/04/21 1623 Given 8 mg feeding tube Performed by: Mercy Guajardo RN Scanned Package: 87991-797-28 magnesium sulfate 4 g/100 mL in water (premix) 4 g [[id number]] Ordering Provider: Tamiko Ray NP Status: Completed (Past End Date/Time) Ordered On: 06/21/21 1007 Starts/Ends: 06/21/21 1045 - 06/21/21 1231 Dose (Remaining/Total): 4 g (0/1) Route: intravenous Frequency: Once Rate/Duration: -- / 90 Minutes Timestamps Action Dose / Duration Route Other Information 06/21/21 1101 New Bag 4 g 90 Minutes intravenous Performed by: Hillary De La O RN Scanned Package: 96358-549-83 thiamine (VITAMIN B1) tablet 100 mg [[id number]] Ordering Provider: Jair Jay MD Status: Dispensed Ordered On: 06/22/211106 Start: 06/22/211144 Dose (Remaining/Total): 100 mg (--/--) Route: feeding tube Frequency: Daily Rate/Duration: -- / -- Timestamps Action Dose Route Other Information 07/05/21753 Given 100 mg feeding tube Performed by: Mercy Guajardo RN Scanned Package: [id number] albuterol 2.5 mg/0.5 mL nebulizer solution 1.25 mg [[id number]] Ordering Provider: Jair Jay MD Status: Dispensed Ordered On: 06/22/211112 Start: 06/22/211112 Dose (Remaining/Total): 1.25 mg (--/--) Route: nebulization Frequency: Every 6 hours PRN (customer response representative) Rate/Duration: -- / -- (No admins scheduled or recorded for this medication) traZODone (DESYREL) tablet 100 mg [[id number]] Ordering Provider: Ciarra Jama NP Status: Dispensed Ordered On: 06/23/211104 Start: 06/23/212099 Dose (Remaining/Total): 100 mg (--/--) Route: feeding tube Frequency: Nightly Rate/Duration: -- / -- Timestamps Action Dose Route Other Information 07/04/211957 Given 100 mg feeding tube Performed by: Hillary Root RN Scanned Package: 51457-368-58 terazosin (HYTRIN) capsule 10 mg [[id number]] Ordering Provider: Ciarra Jama NP Status: Dispensed Ordered On: 06/23/211106 Start: 06/23/212099 Dose (Remaining/Total): 10 mg (--/--) Route: feeding tube Frequency: Nightly Rate/Duration: -- / -- Timestamps Action Dose Route Other Information 07/04/211957 Given 10 mg feeding tube Performed by: Hillary Root RN Scanned Package: 55139-431-15, 27824-853-77 docusate (COLACE) 10 mg/mL oral liquid 100 mg [[id number]] Ordering Provider: Sada العلي NP Status: Dispensed Ordered On: 06/26/21803 Start: 06/26/21899 Dose (Remaining/Total): 100 mg (--/--) Route: feeding tube Frequency: Daily Rate/Duration: -- / -- Timestamps Action Dose Route Other Information 07/05/21754 Given 100 mg feeding tube Performed by: Mercy Guajardo RN Scanned Package: 37074-856-93 senna 1.76 mg/mL syrup 8.8 mg [[id number]] Ordering Provider: Sada العلي NP Status: Dispensed Ordered On: 06/26/21803 Start: 06/26/21899 Dose (Remaining/Total): 8.8 mg (--/--) Route: feeding tube Frequency: 2 times daily Rate/Duration: -- / -- Timestamps Action Dose Route Other Information 07/05/21754 Given 8.8 mg feeding tube Performed by: Mercy Guajardo RN Scanned Package: 68681-584-50 barium sulfate (VARIBAR THIN LIQUID) 81 % (w/w) thin liquid [[id number]] Ordering Provider: Patricia Ferrer NP Status: Completed (Past End Date/Time) Ordered On: 06/26/211316 Starts/Ends: 06/26/211310 - 06/26/211310 Dose (Remaining/Total): -- (0/1) Route: oral Frequency: Once in imaging Rate/Duration: -- / -- Timestamps Action Dose Route Other Information 06/26/211310 Contrast Given 15 mL oral Performed by: Cielo Beltre RT barium sulfate (VARIBAR NECTAR) 40 % (w/v) nectar [[id number]] Ordering Provider: Patricia Ferrer NP Status: Completed (Past End Date/Time) Ordered On: 06/26/211316 Starts/Ends: 06/26/211312 - 06/26/211312 Dose (Remaining/Total): -- (0/1) Route: oral Frequency: Once in imaging Rate/Duration: -- / -- Admin Instructions: Shake well Timestamps Action Dose Route Other Information 06/26/21 1313 Contrast Given 20 mL oral Performed by: Cielo Beltre RT barium sulfate (VARIBAR PUDDING) 40 % (w/v), 30% (w/w) pudding [[id number]] Ordering Provider: Patricia Ferrer NP Status: Completed (Past End Date/Time) Ordered On: 06/26/21 1317 Starts/Ends: 06/26/21 1314 - 06/26/21 1314 Dose (Remaining/Total): -- (0/1) Route: oral Frequency: Once in imaging Rate/Duration: -- / -- Timestamps Action Dose Route Other Information 06/26/21 1314 Contrast Given 15 mL oral Performed by: Cielo Beltre RT barium sulfate (VARIBAR) 40 % (w/v) 29% (w/w) suspension 250 mL [[id number]] Ordering Provider: Patricia Ferrer NP Status: Completed (Past End Date/Time) Ordered On: 06/26/21 1317 Starts/Ends: 06/26/21 1317 - 06/26/21 1317 Dose (Remaining/Total): 250 mL (0/1) Route: oral Frequency: Once in imaging Rate/Duration: -- / -- Admin Instructions: Shake well Timestamps Action Dose Route Other Information 06/26/21 1317 Contrast Given 250 mL oral Performed by: Cielo Beltre RT Comments: 20 ml given magnesium sulfate 2 g/50 mL in water (premix) 2 g [[id number]] Ordering Provider: Aliya Vincent NP Status: Completed (Past End Date/Time) Ordered On: 06/27/21 0120 Starts/Ends: 06/27/21 0200 - 06/27/21 0431 Dose (Remaining/Total): 2 g (0/1) Route: intravenous Frequency: Once Rate/Duration: -- / 60 Minutes Timestamps Action Dose / Duration Route Other Information 06/27/21 0331 New Bag 2 g 60 Minutes intravenous Performed by: Edie Hameed RN Scanned Package: 9943-3688-76 bisacodyL (DULCOLAX) suppository 10 mg [[id number]] Ordering Provider: Donavan Boo MD Status: Completed (Past End Date/Time) Ordered On: 06/27/21 1247 Starts/Ends: 06/27/21 1330 - 06/27/21 1407 Dose (Remaining/Total): 10 mg (0/1) Route: rectal Frequency: Once Rate/Duration: -- / -- Timestamps Action Dose Route Other Information 06/27/21 1407 Given 10 mg rectal Performed by: Emerita Boo RN Scanned Package: 4592-2912-91 miconazole (SECURA THICK) 2 % cream [[id number]] Ordering Provider: Andreia Ellis MD Status: Dispensed Ordered On: 06/27/21 1428 Start: 06/27/21 2100 Dose (Remaining/Total): -- (--/--) Route: topical Frequency: 2 times daily Rate/Duration: -- / -- Question Answer Comment Apply to affected area:: perineum buttocks -- other -- Timestamps Action Dose / Rate / Duration Route Other Information 07/05/21 0759 Given -- topical Performed by: Mercy Guajardo RN Scanned Package: 99988-755-57 metroNIDAZOLE (FLAGYL) tablet 500 mg [[id number]] Ordering Provider: Tamiko Ray NP Status: Completed (Past End Date/Time) Ordered On: 06/28/21 1414 Starts/Ends: 06/28/212199 - 06/29/212112 Dose (Remaining/Total): 500 mg (0/4) Route: feeding tube Frequency: Every 8 hours scheduled Rate/Duration: -- / -- Timestamps Action Dose Route Other Information 06/29/212112 Given 500 mg feeding tube Performed by: Maria Del Rosario Cai RN Scanned Package: 90977-682-37, 79829-568-62 sodium chloride 0.9% solution - ADS Override Pull [[id number]] Status: Completed (Past End Date/Time) Ordered On: 06/30/21 0859 Starts/Ends: 06/30/21 0859 - 06/30/21 0927 Dose (Remaining/Total): -- (0/1) Route: -- Frequency: -- Rate/Duration: -- / -- Admin Instructions: Created by cabinet override Note to pharmacy: Created by cabinet override Timestamps Action Dose / Rate / Duration Route / Site / Linked Line Other Information 06/30/21 0927 Given -- -- Performed by: Peggy Deng RN Comments: for pantoprozole reconstitution diatrizoate meglumine-diatrizoate sodium (GASTROGRAFIN/MD-GASTROVIEW) 66-10 % solution 30 mL [[id number]] Ordering Provider: Julieta Tirado NP Status: Completed (Past End Date/Time) Ordered On: 06/30/21 1509 Starts/Ends: 06/30/21 1509 - 06/30/21 1510 Dose (Remaining/Total): 30 mL (0/1) Route: nasogastric tube Frequency: Once in imaging Rate/Duration: -- / -- Timestamps Action Dose Route Other Information 06/30/21 1510 Contrast Given 20 mL nasogastric tube Performed by: Aimee Andersen RT potassium chloride 20 mEq/260 mL in sodium chloride 0.9% (premix) 20 mEq [[id number]] Ordering Provider: Aby Quiñonez MD Status: Completed (Past End Date/Time) Ordered On: 07/01/21 0314 Starts/Ends: 07/01/21 0345 - 07/01/21 0601 Dose (Remaining/Total): 20 mEq (0/1) Route: intravenous Frequency: Once Rate/Duration: -- / 2 Hours Timestamps Action Dose / Duration Route Other Information 07/01/21 0401 New Bag 20 mEq 2 Hours intravenous Performed by: Gallo Reich RN fluticasone furoate-vilanteroL (BREO ELLIPTA) 100-25 mcg/dose inhaler 1 puff [[id number]] Ordering Provider: Jahaira Brown NP Status: Dispensed Ordered On: 07/01/21 1349 Start: 07/01/21 1430 Dose (Remaining/Total): 1 puff (--/--) Route: inhalation Frequency: Daily (customer response representative) Rate/Duration: -- / -- Admin Instructions: Rinse mouth with water after use. Do not swallow. Timestamps Action Dose Route Other Information 07/03/21 0910 Given 1 puff inhalation Performed by: Vy Cabrera RRT Scanned Package: 6683-8763-63 magnesium oxide (MAG-OX) tablet 400 mg [[id number]] Ordering Provider: Elizabeth Persaud NP Status: Verified (Past End Date/Time) Ordered On: 07/04/21 0641 Starts/Ends: 07/04/21 0715 - 07/05/21 0715 Dose (Remaining/Total): 400 mg (/) Route: oral Frequency: Once Rate/Duration: -- / -- Admin Instructions: 1 tablet = Magnesium oxide 400 mg = 241.3 mg elemental magnesium (No admins scheduled or recorded for this medication) ceFAZolin (ANCEF) 2,000 mg/20 mL in sterile water (premix) 2,000 mg [[id number]] Ordering Provider: Buffy Hidalgo MD Status: Completed (Past End Date/Time) Ordered On: 07/04/21 1238 Starts/Ends: 07/04/21 1315 - 07/04/212033 Dose (Remaining/Total): 2,000 mg (0/2) Route: intravenous Frequency: Every 8 hours Rate/Duration: 400 mL/hr / 3 Minutes Admin Instructions: Beginning 8 hours after pre-op dose. Line Med Link Info Comment Peripheral IV 07/04/21 16 G Right Hand 07/04/21 1623 by Mercy Guajardo, RN -- Timestamps Action Dose / Rate / Duration Route Other Information 07/04/212030 Given 2,000 mg 400 mL/hr 3 Minutes intravenous Performed by: Hillary Root RN heparin 5,000 unit/mL injection 5,000 Units [[id number]] Ordering Provider: Elizabeth Persaud NP Status: Dispensed Ordered On: 07/04/21 1348 Start: 07/04/21 2200 Dose (Remaining/Total): 5,000 Units (--/--) Route: subcutaneous Frequency: Every 8 hours scheduled Rate/Duration: -- / -- Timestamps Action Dose Route / Site Other Information 07/05/21 1413 Given 5,000 Units subcutaneous Left Lower Abdomen Performed by: Mercy Guajardo RN Scanned Package: 6220-3714-44 metoprolol (LOPRESSOR) injection 5 mg [[id number]] Ordering Provider: Vy Munoz NP Status: Completed (Past End Date/Time) Ordered On: 07/04/211951 Starts/Ends: 07/04/212029 - 07/04/212026 Dose (Remaining/Total): 5 mg (0/1) Route: intravenous Frequency: Once Rate/Duration: -- / 1 Minutes Timestamps Action Dose / Duration Route Other Information 07/04/212025 Given 5 mg 1 Minutes intravenous Performed by: Hillary Root RN Scanned Package: 79498-857-47 Lactated Ringer's (LR) bolus 1,000 mL [[id number]] Ordering Provider: Vy Munoz NP Status: Completed (Past End Date/Time) Ordered On: 07/05/21 0136 Starts/Ends: 07/05/21 0215 - 07/05/21 0648 Dose (Remaining/Total): 1,000 mL (0/1) Route: intravenous Frequency: Once Rate/Duration: 250 mL/hr / 4 Hours Timestamps Action Dose / Rate / Duration Route Other Information 07/05/21 0248 New Bag 1,000 mL 250 mL/hr 4 Hours intravenous Performed by: Hillary Root RN Scanned Package: 8527-2169-99 metoprolol (LOPRESSOR) tablet 100 mg [[id number]] Ordering Provider: Vy Munoz NP Status: Dispensed Ordered On: 07/05/21 0541 Start: 07/05/21 0900 Dose (Remaining/Total): 100 mg (--/--) Route: feeding tube Frequency: 2 times daily Rate/Duration: -- / -- Timestamps Action Dose Route Other Information 07/05/21 0754 Given 100 mg feeding tube Performed by: Mercy Guajardo RN Scanned Package: 85247-094-51 barium sulfate (VARIBAR THIN LIQUID) 81 % (w/w) thin liquid [[id number]] Ordering Provider: Elizabeth Persaud NP Status: Completed (Past End Date/Time) Ordered On: 07/05/211443 Starts/Ends: 07/05/21 144 - 07/05/21 144 Dose (Remaining/Total): -- (0/1) Route: oral Frequency: Once in imaging Rate/Duration: -- / -- Timestamps Action Dose Route Other Information 07/05/211446 Contrast Given 25 mL oral Performed by: Lacey Law RT barium sulfate (VARIBAR PUDDING) 40 % (w/v), 30% (w/w) pudding [[id number]] Ordering Provider: Elizabeth Persaud NP Status: Completed (Past End Date/Time) Ordered On: 07/05/211443 Starts/Ends: 07/05/21 1444 - 07/05/21 1444 Dose (Remaining/Total): -- (0/1) Route: oral Frequency: Once in imaging Rate/Duration: -- / -- Timestamps Action Dose Route Other Information 07/05/211443 Contrast Given 10 mL oral Performed by: Lacey Law RT barium sulfate (VARIBAR NECTAR) 40 % (w/v) nectar [[id number]] Ordering Provider: Elizabeth Persaud NP Status: Completed (Past End Date/Time) Ordered On: 07/05/211443 Starts/Ends: 07/05/21 1444 - 07/05/21 1446 Dose (Remaining/Total): -- (0/1) Route: oral Frequency: Once in imaging Rate/Duration: -- / -- Admin Instructions: Shake well Timestamps Action Dose Route Other Information 07/05/211445 Contrast Given 15 mL oral Performed by: Lacey Law RT * [facility] Note - Lizzeth Huitron MSW - 07/05/2021 4:00 PM CDT Images from the original note were not included. Patient Information: Comprehensive Nursing Documentation Attending Provider: Darrel Wolf MD Allergies: Penicillins Isolation: Contact Infection: MDR gram neg/ESBL (12/21/19) Code Status: FULL Advance Care Planning Activity Ht: 180.3 cm (5' 10.98 ) Wt: 90 kg (198 lb 6.6 oz) Admission Cmt: None Principal Problem: None Elopement Risk Date/Time Elopement Risk User 07/01/21 1700 No risk VB 06/12/21 2000 No risk AMB 06/12/21 0800 No risk JF Intake/Output 07/02/21 0700 - 07/03/21 0659 07/03/21 0700 - 07/04/21 0659 07/04/21 0700 - 07/05/21 0659 07/05/21 0700 - 07/06/21 0659 Total Total 5865-4504 7920-3679 0464-0499 Total 9745-9205 9190-3553 8620-6389 Total Intake (ml) 552 749 6858 -- -- 2200 -- -- -- -- Output (ml) 500 0 400 50 450 900 250 -- -- 250 Net (ml) -60 422 1800 -50 -450 1300 -250 -- -- -250 Patient Lines/Drains/Airways Status Active Airway / Central venous catheter / Drain / Epidural cathether / Intraosseous line / Peripherally inserted central catheter / Peripheral intravenous line / Arterial line Name Placement date Placement time Site Days External Urinary Catheter 07/04/211957 -- less than 1 Peripheral IV 07/03/21 20 G Anterior;Left Forearm 07/03/21 1306 Forearm 2 Patient Lines/Drains/Airways Status Active Wound / Pressure ulcer / Johnson / Negative Pressure Wound Wound 06/27/21 MASD (Moisture associated skin damage) Perineum , buttocks Date First Assessed 06/27/21 Site Perineum Time First Assessed 1425 Days 8 Wound Type: MASD (Moisture associated skin damage) Wound Description (Comments): , buttocks Assessments Row Name 07/05/21 0755 07/04/21195707/04/21 0805 07/03/218 Wound Status Healing Healing Healing Healing Site Assessment Clean;Color appropriate for ethnicity;Dry;Nord Clean;Color appropriate for ethnicity;Dry;Nord Clean;Color appropriate for ethnicity;Dry;Nord Clean;Color appropriate for ethnicity;Dry;Nord Valentine-wound Assessment Blanchable erythema Blanchable erythema Blanchable erythema Blanchable erythema Margins Attached edges Attached edges Attached edges Attached edges Closure Open to air -- Open to air -- Drainage Amount None -- None -- Dressing Status Open to Air -- Open to Air -- Interventions -- Cleansed;Pharmacological (see MAR) -- -- Hardin Fall Risk Flowsheet Row Most Recent Value Auto Low/High - if selected proceed to interventions High risk-per unit/hospital protocol ............filed at 07/05/2021 0755 History of Falling 25 ............filed at 07/05/2021 0755 Secondary Diagnosis 15 ............filed at 07/05/2021 0755 Ambulatory Aids 0 ............filed at 07/05/2021 0755 Intravenous Therapy/Heparin/Saline Lock 20 ............filed at 07/05/2021 0755 Gait/Transferring 20 ............filed at 07/05/2021 0755 Mental Status 15 ............filed at 07/05/2021 0755 Hardin Fall Risk Score 50 ............filed at 07/05/2021 0755 Vital Signs Report 07/04 0700 07/05 0659 07/05 0700 07/05 1600 Most Recent Temp (??C) 36 - 37 36.3 - 36.7 36.3 (97.3) 07/05 1126 Pulse 73 - 162 81 - 116 92 07/05 1132 Resp 11 - 20 18 18 07/05 1126 SpO2 (%) 90 - 100 94 - 96 94 07/05 1132 FiO2 (%) (%) 21 BP 101/77 - 149/91 108/74 - 143/95 110/76 07/05 1132 MAP (mmHg) 81 - 96 85 - 107 87 07/05 1132 Non Violent Restraint Flowsheet Row Most Recent Value Restraint Alternative Less Restrictive Alternative Roll Belt with Bed Alarm, Comfort Measures filed at 07/03/2021 0715 Restraint Reason Clinical Justification Pulling lines, Pulling tubes filed at 06/29/2021 0530 Restraint Type (NV) Every 2 Hours Mittens-as Restraint R (NV) CONTINUED filed at 06/29/2021 0930 Mittens-as Restraint L (NV) DISCONTINUED filed at 07/01/2021 1900 Soft Restraint R Wrist (NV) CONTINUED filed at 06/29/2021 0930 Soft Restraint L Wrist (NV) CONTINUED filed at 06/29/2021 0930 Limb Immobilizer (NV) DISCONTINUED filed at 07/01/2021 1900 Roll Belt (NV) CONTINUED filed at 07/03/2021 0715 Default Flowsheet Data (most recent) Endurance Tests No documentation. Default Flowsheet Data (most recent) Balance Tests - 06/29/21 0930 Tinetti Sitting Balance 0 Arises 0 Attempts to Arise 0 Immediate Standing Balance (First 5 Seconds) 0 Standing Balance 0 Nudged 0 Eyes Closed 0 Turned 360 Degrees: Steadiness 0 Turned 360 Degrees: Continuity of Steps 0 Sitting Down 0 Balance Score 0 Nursing Nutrition Feeding Level of Assistance 07/05 0755 Total assist 07/04 0805 Other (Comment) (Comment: NPO) 07/03 0700 Needs assist Appetite 07/05 0755 Fair Nursing Mobility Activity 07/05 1127 Chair 07/05 0932 Being fed;Chair 07/05 0755 Resting in bed 07/05 0620 Sleeping;Resting in bed 07/04 1958 Resting in bed 07/04 0805 Resting in bed 07/04 0407 Resting in bed 07/04 0344 Sleeping 07/04 0324 Sleeping 07/04 0145 Sleeping 07/03 2238 Resting in bed 07/03 1915 Sleeping 07/03 1800 Sleeping 07/03 1700 Sleeping 07/03 1600 Sleeping 07/03 1500 Sleeping 07/03 1400 Sleeping 07/03 1300 Sleeping 07/03 1223 Chair;Being fed 07/03 1200 Sleeping 07/03 1100 Sleeping 07/03 1049 Chair;Being fed 07/03 1000 Sleeping 07/03 0900 Sleeping 07/03 0800 Sleeping 07/03 0741 Sleeping 07/03 0700 Sleeping 07/03 0515 Resting in bed 07/03 0343 Sleeping 07/03 0034 Resting in bed 07/03 0000 Resting in bed 07/02 2001 Resting in bed 07/02 1930 Resting in bed 07/02 1800 Sleeping 07/02 1700 Sleeping Level of Assistance 07/02 1929 Maximum assist, patient does 25-49% Assistive Device 07/03 1800 None 07/03 1700 None 07/03 1600 None 07/03 1500 None 07/03 1400 None 07/03 1300 None 07/03 1200 None 07/03 1100 None 07/03 1000 None 07/03 0900 None 07/03 0800 None 07/03 0700 None 07/02 1800 None 07/02 1700 None Repositioned 07/05 0755 Turns self 07/04 195 Turns self;Supine;Pillow support 07/04 0805 Turns self 07/03 2238 Turns self 07/03 0515 Turns self 07/03 0000 Turns self 07/02 2000 Turns self 07/02 193 Left side Positioning Frequency 07/05 0755 Able to turn self 07/04 1957 Able to turn self 07/04 0805 Able to turn self 07/03 2237 Able to turn self 07/03 1900 Able to turn self 07/02 193 Every 2 hours Head of Bed Elevated 07/05 0755 Self regulated 07/04 1957 HOB less than 20 07/04 1200 HOB less than 20 07/04 1140 HOB less than 20 07/04 1131 HOB Flat 07/04 0805 Self regulated 07/03 2238 HOB 30 07/03 1900 HOB 30 07/02 1930 HOB 30 Heels/Feet 07/05 0755 Foot of bed elevated;Heels elevated off bed 07/04 1957 Foot of bed elevated 07/04 0805 Foot of bed elevated;Heels elevated off bed 07/03 2237 Foot of bed elevated 07/03 1900 Foot of bed elevated 07/02 193 Heels elevated off bed;Foot of bed elevated Range of Motion 07/05 0755 Active;All extremities 07/04 1957 Active;All extremities 07/04 0805 Active;All extremities 07/03 2237 Active;All extremities 07/03 190 Active;All extremities Type of Device 07/05 0755 Mechanical compression 07/04 1957 Mechanical compression 07/04 1200 Mechanical compression 07/04 1140 Mechanical compression 07/04 0805 Mechanical compression 07/03 2237 Mechanical compression 07/03 1800 Mechanical compression 07/03 1700 Mechanical compression 07/03 1600 Mechanical compression 07/03 1500 Mechanical compression 07/03 1400 Mechanical compression 07/03 1300 Mechanical compression 07/03 1200 Mechanical compression 07/03 1100 Mechanical compression 07/03 1000 Mechanical compression 07/03 0900 Mechanical compression 07/03 0800 Mechanical compression 07/03 0700 Mechanical compression 07/02 1800 Mechanical compression 07/02 1700 Mechanical compression Mechanical Compression Site 07/05 0755 Right lower extremity 07/04 1958 Right lower extremity 07/04 1140 Right lower extremity 07/04 0805 Bilateral 07/03 2238 Bilateral 07/03 1800 Bilateral 07/03 1700 Bilateral 07/03 1600 Bilateral 07/03 1500 Bilateral 07/03 1400 Bilateral 07/03 1300 Bilateral 07/03 1200 Bilateral 07/03 1100 Bilateral 07/03 1000 Bilateral 07/03 0900 Bilateral 07/03 0800 Bilateral 07/03 0700 Bilateral 07/02 2000 Bilateral 07/02 1800 Bilateral 07/02 1700 Bilateral Mechanical Compression Type 07/05 0755 IPC/SCD 07/04 1958 IPC/SCD 07/04 1140 IPC/SCD 07/04 0805 IPC/SCD 07/03 2238 IPC/SCD 07/03 1800 IPC/SCD 07/03 1700 IPC/SCD 07/03 1600 IPC/SCD 07/03 1500 IPC/SCD 07/03 1400 IPC/SCD 07/03 1300 IPC/SCD 07/03 1200 IPC/SCD 07/03 1100 IPC/SCD 07/03 1000 IPC/SCD 07/03 0900 IPC/SCD 07/03 0800 IPC/SCD 07/03 0700 IPC/SCD 07/02 2000 IPC/SCD 07/02 1800 IPC/SCD 07/02 1700 IPC/SCD Mechanical Compression Status 07/05 0755 Off 07/04 1958 Off 07/04 1140 On 07/04 0805 Off 07/03 2238 Off 07/03 1800 Off 07/03 1700 Off 07/03 1600 Off 07/03 1500 Off 07/03 1400 Off 07/03 1300 Off 07/03 1200 Off 07/03 1100 Off 07/03 1000 Off 07/03 0900 Off 07/03 0800 Off 07/03 0700 Off 07/02 2000 Off 07/02 1800 Off 07/02 1700 Off * Plan of Care - Kirill Dean, DPT - 07/05/2021 11:59 AM CDT Problem: Transfers Goal: STG - Patient will transfer sit to and from stand Description: Maritza with LRAD Outcome: Progressing Problem: Transfers Goal: STG - Transfer from bed to chair supervision Outcome: Progressing * Plan of Care - Lizzeth Huitron MSW - 07/05/2021 10:41 AM CDT Per DCAM rounds with Dividend Deposit Voucher Clerk, Moving Consultant, Charge Nurse, and MD, the patient is not medically stable for discharge at this time. Problem: Ensure acute medical needs are met and that patient has a safe discharge plan. Goal: Secure a placement that patient/family are agreeable with and ensure patient has continuum ofcare. Discharge plan: Patient is post-op day 1. Post-op therapy updates are needed. Swallow study is pending. AMARJIT contacted patient's primary contact/significant other, Raine, to review patient's discharge planning. Raine requested SW to call her back tomorrow due to lack of sleep. AMARJIT explained to Raine that patient is anticipated to be medically stable for discharge tomorrow, pending accepting facilityper updated therapy recommendations. AMARJIT inquired if Raine had reviewed SNF and IPR list that was emailed to [facility] on 06/29.. Raine stated that she never received IPR/SNF list. AMARJIT reviewed Raine's email, [facility], and Raine confirmed. AMARJIT will resend SNF/IPR list to Raine's email, and reported a follow up call will be made later today to inquire referrals. Raine became frustrated,and said AMARJIT will need to call tomorrow. Dispo pending. Insurance: [employer] Medicare ADD: 07/06-07/07 SW to follow. PAIGE Knowles * Plan of Care - Zackary Barrett RRT - 07/05/2021 9:42 AM CDT Patient seen and evaluated no apparent distress , BS clear , diminished in bases Plan : Continue with eriboka and incentive spirometer , encourage to cough and deep breathing * Plan of Care - Hillary Root RN - 07/04/2021 7:58 PM CDT Goals: Clinical Goals for the Shift: VSS, OR today, pain management S Problem: Health Behavior: Goal: Understanding of discharge [...] Outcome: Progressing Problem: Lack of Knowledge: Goal: Knowledge of restraints will improve Description: INTERVENTIONS: 1. Educate patient/caregiver on restraints Outcome: Progressing Problem: Safety - Medical Restraint Goal: Remains free of injury from restraints (Restraint for Interference with Necktie Maker) Description: INTERVENTIONS: 1. Identify and document the criteria for restraint 2. Determine that other, less restrictive measures have been tried or would not be effective beforeapplying the restraint 3. Evaluate the patient's condition at the time of restraint application and continue to monitor patient's condition 4. Inform patient/family regarding the reason for restraint 5. Q2H: Monitor safety checks including skin, circulation, sensory,respiratory, psychosocial status, comfort, nutrition and hydration 6. Ensure safety/first aid measures are in place (i.e. Quick release, suction, crash cart, etc.) Outcome: Progressing Goal: Free from restraint(s) (Restraint for Interference with Necktie Maker) Description: INTERVENTIONS: 1. Q2H and PRN: Assess and document the continuing need for restraints 2. Q24H: Continued use of restraint requires LIP to perform face to face examination and written order (ICU restraint orders are not reviewed Q24H only at the time of initiation) 3. Identify and implement measures to help patient regain control Outcome: Progressing Problem: Lack of Knowledge: Goal: Risk factors for ineffective tissue perfusion will decrease Outcome: Progressing Goal: Knowledge of disease or condition will improve Outcome: Progressing Goal: Ability to identify and develop effective coping behavior will improve Outcome: Progressing Problem: Health Behavior: Goal: Identification of resources available to assist in meeting health care needs will improve Outcome: Progressing Problem: Physical Regulation: Goal: Ability to maintain clinical measurements within normal limits will improve Outcome: Progressing Goal: Will regain or maintain usual level of consciousness Outcome: Progressing Problem: Respiratory: Goal: Ability to maintain adequate ventilation will improve Outcome: Progressing Problem: Self-Care: Goal: Ability to perform activities of daily living will improve Outcome: Progressing Problem: Tissue Perfusion: Goal: Signs of adequate cerebral perfusion will increase Outcome: Progressing Problem: Lack of Knowledge: Goal: Knowledge on safety and abstaining from self-injurious behavior will increase Outcome: Progressing Problem: Lack of Knowledge: Goal: Knowledge of restraints will improve Description: INTERVENTIONS: 1. Educate patient/caregiver on restraints Outcome: Progressing Problem: Lack of Knowledge: Goal: Ability to state ways to decrease the risk of falls will improve Outcome: Progressing Problem: Safety: Goal: Will remain free from falls Outcome: Progressing Goal: Will remain free from injury from falls Outcome: Progressing Goal: Will remain free from falls and injury in home environment Outcome: Progressing * Brief Op Note - Buffy Hidalgo MD - 07/04/2021 10:07 AM CDT Operative Progress Note Surgical Team: Surgeon(s) and Role: * Yoanna Delvalle MD - Primary * Kirill Munguia MD - Resident - Assisting * Buffy Hidalgo MD - Resident - Assisting Anesthesiologist: Sumanth Barr MD SOAPSTONER: Can Floyd III, CRNA Pump Tender Relief: Cielo Martinez RN; Latha Higginbotham, GAURAV; Candis Wu RN Scrub: Sandra Kaplan RN DATE OF SURGERY : 07/04/2021 Preoperative Diagnosis: Pre-op Diagnosis * Closed nondisplaced intertrochanteric fracture of left femur, initial encounter ([facility]) [S72.145A] Postoperative Diagnosis: Post-op Diagnosis * Closed nondisplaced intertrochanteric fracture of left femur, initial encounter ([facility]) [S72.145A] Procedure(s): Procedure(s) (LRB): INTRAMEDULLARY NAILING FEMUR - ANTEGRADE - INTERTROCHANTERIC (Left) Operative Findings: IMN L IT fx Estimated Blood Loss: 200 mL Intraoperative Fluids: See anaesthesia note Specimens: No specimen collected in procedure Implants: Implant Name Type Inv. Item Serial No. Heel Sander Lot No. [id number] No. Used Action DAS & NEPHEW/RICHCO/ORTHO [id number] 44CM 13MM LEFT INTERTROCHANTER 130D 1.5MM NAIL - [id number] DAS [employer] NEPHEW/RICHCO/ORTHO [id number] 44CM 13MM LEFT INTERTROCHANTER 130D 1.5MMNAIL Das [employer] Nephew/Richco/Ortho Left 1 Implanted DAS [employer] NEPHEW/RICHCO/ORTHO INTERTAN 4.5MM 95MM 90MM LAG COMPRESSION INTEGRATED INTERLOCKING [id number] - [id number] DAS [employer] NEPHEW/RICHCO/ORTHO Intertan 4.5mm 95mm 90mm Lag Compression Integrated Interlocking [id number] Das [employer] Nephew/Richco/Ortho Left 1 Implanted DAS & NEPHEW/RICHCO/ORTHO [id number] 5MM 52.5MM LOW PROFILE INTERNAL HEX FEMUR SCREW BONE TRIGEN - [id number] DAS [employer] NEPHEW/RICHCO/ORTHO [id number] 5mm 52.5mm Low Profile Internal Hex Femur Screw Bone Trigen Das [employer] Nephew/Richco/Ortho Left 1 Implanted DAS & NEPHEW/RICHCO/ORTHO [id number] TRIGEN 5MM 62.5MM LOW PROFILE FEMUR SCREW BONE - [id number] DAS & NEPHEW/RICHCO/ORTHO [id number] Trigen 5mm 62.5mm Low Profile Femur Screw Bone Das [employer] Nephew/Richco/Ortho Left 1 Implanted Blood/Blood Products Transfused: 0 mls Complications: None Condition on Discharge from the operating room was stable Buffy Hidalgo MD Date: 07/04/2021 Time: 11:32 AM TEACHING ATTESTATION : I was present and directly participated in the entire procedure (including opening and closing). Cosigned by Yoanna Delvalle MD at 07/04/2021 12:57 PM CDT * Op Note - Yoanna Delvalle MD - 07/04/2021 9:10 AM CDT Date of Surgery: 07/04/2021 INDICATIONS: Mr. Redman is a 71 y.o.-year-old male who sustained a left hip fracture (intertrochanteric-type). He failed nonoperative treatment and was unable to mobilize from bed due to pain. MRI demonstrated intertrochanteric involvement. The risks and benefits of the procedure discussed with consenting authority and questions were answered; consent was obtained. PREOPERATIVE DIAGNOSIS: left hip fracture (intertrochanteric-type) POSTOPERATIVE DIAGNOSIS: Same PROCEDURE: left hip closed reduction and intramedullary nailing SURGEON: Yoanna Delvalle MD SHOW CARD LETTERER: Kirill Munguia MD, Buffy Hidalgo MD ANESTHESIA: general IV FLUIDS AND URINE: See anesthesia record. ESTIMATED BLOOD LOSS: 200 mL. IMPLANTS: Das and Nephew InterTAN ([id number]) with proximal compression and lag screws size 95/90 and distal interlocking screws x2. SPECIMENS: None. DRAINS: None. COMPLICATIONS: None. DESCRIPTION OF PROCEDURE: The patient was brought to the operating room and placed supine on the operating table. The patient's leg had been signed prior to the procedure and this was documented.The patient had the anesthesia placed by the anesthesiologist. The prep verification and incision time-outs were performed to confirm that this was the correct patient, site, side and location. The patient had an SCD on the opposite lower extremity. The patient didreceive antibiotics prior to the incision and was redosed during the procedure as needed at indicate d intervals. The patient was positioned on the fracture table with the table in traction and internal rotation to reduce the hip. The well leg was placed in extension and secured to the post in a scissor position. The patient had the lower extremity prepped and draped in the standard surgical fashion. At the hip, the starting point was first found with the guidewire and this was inserted under fluoroscopic visualization. The guidewire was placed partially down into the femur and then the incision was made in the skin and subcutaneous tissue to the fascia and then the opening reamer was placedover this. All radiographs were confirmed throughout the procedure on both AP and lateral views. ?? The ball-tipped guidewire was then placed down to the distal portion of the femur in the proper location and the measuring guide was used to measure off of this. The length of the nail was estimated at 440mm. Sequential reaming was then performed to give some chatter up to a size 14.5. The nail itself (a Das and Nephew Intertan [id number]) was then inserted over the wire and then the guidewire was removed while ensuring no anterior cortical perforation distally in the femur. ?? The proximal screws were then placed in the standard fashion. First the guidewire was placed through the jig in the standard fashion, first incising the skin, subcutaneous tissue, and fascia, then spreading with a clamp. The guidewire was confirmed on both AP and lateral views. The measuring stick was placed over the wire estimating the size of the lag screw 95 mm and the compression screw at 90 mm. The lateral cortical reamer, then the anti-rotation bar, then step reamer, were placed confirming location on both fluoroscopic views. The lag screw was placed, followed by the compression screw. ?? Attention was then turned to the distal interlocking screws. The lateral x-ray was used to get the perfect circles view, then an incision was made through the skin and subcutaneous tissue and fascia followed by drilling, measuring with a depth gauge, then placing the screws by hand. Two distal interlocking screws were placed. Of note, during the orthopaedic procedure, the bone quality was found to be very poor. ?? Final x-rays were taken on both AP and lateral views to confirm all of the screw placements. The wounds were copiously irrigated with saline and then the deep fascia was closed with #1 vicryl [id number] interrupted sutures. The skin was reapproximated with 2-0 monocryl and alice. The wounds were cleaned and dried a final time and a sterile dressing (consisting Xeroform, 4 x 4s, and Ioban) was placed. The patient was then awakened from anesthesia and taken to the recovery room in stable condition. All counts were correct at the end of the case.I was present for the troy/critical portionsof the surgery, including placement of all hardware, and immediately available for the remainder ofthe procedure. POSTOPERATIVE PLAN: Mr. Redman will be weight bearing as tolerated and will return in 3 weeks for staple removal and will not need any x-rays at that time. Mr. Redman will receive DVT prophylaxis based on other medications, activity level, and risk ratio of bleeding to thrombosis per the primary team; if possible, we would prefer eliquis. * Plan of Care - Mercy Guajardo RN - 07/04/2021 8:56 AM CDT Goals: Clinical Goals for the Shift: VSS, OR today, pain management Summary:OR today. Corey GUNDERSON, masha x1. * Plan of Care - Milagros Barrientos RN - 07/03/2021 7:39 PM CDT Problem: Health Behavior: Goal: Understanding [...] Outcome: Progressing Problem: Lack of Knowledge: Goal: Knowledge of restraints will improve Description: INTERVENTIONS: 1. Educate patient/caregiver on restraints Outcome: Progressing Problem: Safety - Medical Restraint Goal: Remains free of injury from restraints (Restraint for Interference with Necktie Maker) Description: INTERVENTIONS: 1. Identify and document the criteria for restraint 2. Determine that other, less restrictive measures have been tried or would not be effective beforeapplying the restraint 3. Evaluate the patient's condition at the time of restraint application and continue to monitor patient's condition 4. Inform patient/family regarding the reason for restraint 5. Q2H: Monitor safety checks including skin, circulation, sensory,respiratory, psychosocial status, comfort, nutrition and hydration 6. Ensure safety/first aid measures are in place (i.e. Quick release, suction, crash cart, etc.) Outcome: Progressing Goal: Free from restraint(s) (Restraint for Interference with Necktie Maker) Description: INTERVENTIONS: 1. Q2H and PRN: Assess and document the continuing need for restraints 2. Q24H: Continued use of restraint requires LIP to perform face to face examination and written order (ICU restraint orders are not reviewed Q24H only at the time of initiation) 3. Identify and implement measures to help patient regain control Outcome: Progressing Problem: Lack of Knowledge: Goal: Risk factors for ineffective tissue perfusion will decrease Outcome: Progressing Goal: Knowledge of disease or condition will improve Outcome: Progressing Goal: Ability to identify and develop effective coping behavior will improve Outcome: Progressing Problem: Health Behavior: Goal: Identification of resources available to assist in meeting health care needs will improve Outcome: Progressing Problem: Physical Regulation: Goal: Ability to maintain clinical measurements within normal limits will improve Outcome: Progressing Goal: Will regain or maintain usual level of consciousness Outcome: Progressing Problem: Respiratory: Goal: Ability to maintain adequate ventilation will improve Outcome: Progressing Problem: Self-Care: Goal: Ability to perform activities of daily living will improve Outcome: Progressing Problem: Tissue Perfusion: Goal: Signs of adequate cerebral perfusion will increase Outcome: Progressing Problem: Lack of Knowledge: Goal: Knowledge on safety and abstaining from self-injurious behavior will increase Outcome: Progressing Problem: Lack of Knowledge: Goal: Knowledge of restraints will improve Description: INTERVENTIONS: 1. Educate patient/caregiver on restraints Outcome: Progressing Problem: Lack of Knowledge: Goal: Ability to state ways to decrease the risk of falls will improve Outcome: Progressing Problem: Safety: Goal: Will remain free from falls Outcome: Progressing Goal: Will remain free from injury from falls Outcome: Progressing Goal: Will remain free from falls and injury in home environment Outcome: Progressing Goals: Clinical Goals for the Shift: vs, pain management Summary: pt very restless, pt pulled out IV this morning new IV put in. * Plan of Care - Lizzeth Huitron MSW - 07/03/2021 4:06 PM CDT Per DCAM rounds with Dividend Deposit Voucher Clerk, Moving Consultant, Charge Nurse, and MD, the patient is not medically stable for discharge at this time. Problem: Ensure acute medical needs are met and that patient has a safe discharge plan. Goal: Secure a placement that patient/family are agreeable with and ensure patient has continuum ofcare. Discharge plan: Patient has PT recs for SNF; Ot recs for IPR. Recent hip MRI revealed left intertrochanteric femur fracture. OR with Ortho pending. 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 Post-op therapy recs will be needed. SW will follow up with patient/family after OR plan for discharge planning. Insurance: [employer] ADD: 07/06-07/07 SW to follow. PAIGE Knowles * Plan of Care - Luisa Gabriel - 07/03/2021 2:05 PM CDT Problem: Swallowing Goal: LTG - Patient will tolerate the least restrictive diet consistency to allow for safe consumption of daily meals Outcome: Progressing Goal: STG - Patient will tolerate recommended food and liquid consistencies without clinical signs and symptoms of aspirations Outcome: Progressing Goal: STG - Patient will demonstrate safe oral intake to advance diet Outcome: Progressing Professional Recommendations Diet Solids Recommendation: Dysphagia diet-Phase 1 (pending MBS) Diet Liquids Recommendations: NPO for liquids (pending MBS) Recommended Form of Medications: Crushed, With puree (pending MBS) Compensatory Strategies/Modifications: Small bites, Slow rate Postural Recommendations: Upright Assistance with feeding/swallowing: Full supervision with meals Specialty Instructions/Modifications: Good oral care 2-3x/day Per RN, pt had no difficulty with eating puree diet so far. Pt was alert and upright in chair upon arrival. Pt was cooperative and followed all commands throughout the therapy session. Pt accepted trials of ice chips x5 and puree x4. No s/s of penetration/aspiration observed during session. Pt achieved adequate oral clearance across trials. F/u with MBS given pt's improved cognitive status and ability to follow commands. Cosigned by Queta Pires, COTTAGE CHEESE MAKER at 07/03/2021 4:48 PM CDT * Plan of Care - Christine Oliveira - 07/03/2021 11:03 AM CDT Problem: Grooming Goal: STG - Patient will complete grooming Description: In unsupported sitting with Mod A Outcome: Progressing Problem: OT Misc Goal: OT STG - Misc 1 Description: Patient will maintain static and dynamic sitting balance with mod A in preparation forADL tasks. Outcome: Progressing Goal: OT STG - Misc 2 Description: Patient will follow one step commands with no verbal cues Outcome: Progressing Problem: Dressings Lower Extremities Goal: STG - Patient to complete lower body dressing Description: With Mod A Outcome: Completed Problem: Toileting Goal: STG - Patient will complete toileting tasks with Description: With Mod A Outcome: Completed Cosigned by Vane Baker, LESLIE at 07/03/2021 3:19 PM CDT * Plan of Care - Kirill Dean DPT - 07/03/2021 9:43 AM CDT Problem: Transfers Goal: STG - Patient will transfer sit to and from stand Description: Maritza with LRAD Outcome: Progressing Problem: Transfers Goal: STG - Transfer from bed to chair supervision Outcome: Progressing Goal: STG - Patient to transfer to and from sit to supine supervision Outcome: Progressing * Plan of Care - Vy Cabrera RRT - 07/03/2021 9:25 AM CDT Patient ordered on Aerobika. Patient tolerated the treatment well. Patient's bronchial hygiene riskscore is 13. Plan - Continue treatment as ordered. * Plan of Care - Vy Cabrera RRT - 07/03/2021 9:25 AM CDT Patient is currently ordered on VEST therapy. Patient tolerated without issue.. Plan - Continue treatment as ordered * Plan of Care - Yolanda Jackson RN - 07/03/2021 12:31 AM CDT Goals: Clinical Goals for the Shift: vs, pain management Problem: Health Behavior: Goal: Understanding of discharge [...] Outcome: Progressing Problem: Lack of Knowledge: Goal: Knowledge of restraints will improve Description: INTERVENTIONS: 1. Educate patient/caregiver on restraints Outcome: Progressing Problem: Safety - Medical Restraint Goal: Remains free of injury from restraints (Restraint for Interference with Necktie Maker) Description: INTERVENTIONS: 1. Identify and document the criteria for restraint 2. Determine that other, less restrictive measures have been tried or would not be effective beforeapplying the restraint 3. Evaluate the patient's condition at the time of restraint application and continue to monitor patient's condition 4. Inform patient/family regarding the reason for restraint 5. Q2H: Monitor safety checks including skin, circulation, sensory,respiratory, psychosocial status, comfort, nutrition and hydration 6. Ensure safety/first aid measures are in place (i.e. Quick release, suction, crash cart, etc.) Outcome: Progressing Goal: Free from restraint(s) (Restraint for Interference with Necktie Maker) Description: INTERVENTIONS: 1. Q2H and PRN: Assess and document the continuing need for restraints 2. Q24H: Continued use of restraint requires LIP to perform face to face examination and written order (ICU restraint orders are not reviewed Q24H only at the time of initiation) 3. Identify and implement measures to help patient regain control Outcome: Progressing Problem: Lack of Knowledge: Goal: Risk factors for ineffective tissue perfusion will decrease Outcome: Progressing Goal: Knowledge of disease or condition will improve Outcome: Progressing Goal: Ability to identify and develop effective coping behavior will improve Outcome: Progressing Problem: Health Behavior: Goal: Identification of resources available to assist in meeting health care needs will improve Outcome: Progressing Problem: Physical Regulation: Goal: Ability to maintain clinical measurements within normal limits will improve Outcome: Progressing Goal: Will regain or maintain usual level of consciousness Outcome: Progressing Problem: Respiratory: Goal: Ability to maintain adequate ventilation will improve Outcome: Progressing Problem: Self-Care: Goal: Ability to perform activities of daily living will improve Outcome: Progressing Problem: Tissue Perfusion: Goal: Signs of adequate cerebral perfusion will increase Outcome: Progressing Problem: Lack of Knowledge: Goal: Knowledge on safety and abstaining from self-injurious behavior will increase Outcome: Progressing Problem: Lack of Knowledge: Goal: Knowledge of restraints will improve Description: INTERVENTIONS: 1. Educate patient/caregiver on restraints Outcome: Progressing Problem: Lack of Knowledge: Goal: Ability to state ways to decrease the risk of falls will improve Outcome: Progressing Problem: Safety: Goal: Will remain free from falls Outcome: Progressing Goal: Will remain free from injury from falls Outcome: Progressing Goal: Will remain free from falls and injury in home environment Outcome: Progressing * Plan of Care - Milagros Barrientos RN - 07/02/2021 3:06 PM CDT Problem: Health Behavior: Goal: Understanding [...] Outcome: Progressing Problem: Lack of Knowledge: Goal: Knowledge of restraints will improve Description: INTERVENTIONS: 1. Educate patient/caregiver on restraints Outcome: Progressing Problem: Safety - Medical Restraint Goal: Remains free of injury from restraints (Restraint for Interference with Necktie Maker) Description: INTERVENTIONS: 1. Identify and document the criteria for restraint 2. Determine that other, less restrictive measures have been tried or would not be effective beforeapplying the restraint 3. Evaluate the patient's condition at the time of restraint application and continue to monitor patient's condition 4. Inform patient/family regarding the reason for restraint 5. Q2H: Monitor safety checks including skin, circulation, sensory,respiratory, psychosocial status, comfort, nutrition and hydration 6. Ensure safety/first aid measures are in place (i.e. Quick release, suction, crash cart, etc.) Outcome: Progressing Goal: Free from restraint(s) (Restraint for Interference with Necktie Maker) Description: INTERVENTIONS: 1. Q2H and PRN: Assess and document the continuing need for restraints 2. Q24H: Continued use of restraint requires LIP to perform face to face examination and written order (ICU restraint orders are not reviewed Q24H only at the time of initiation) 3. Identify and implement measures to help patient regain control Outcome: Progressing Problem: Lack of Knowledge: Goal: Risk factors for ineffective tissue perfusion will decrease Outcome: Progressing Goal: Knowledge of disease or condition will improve Outcome: Progressing Goal: Ability to identify and develop effective coping behavior will improve Outcome: Progressing Problem: Health Behavior: Goal: Identification of resources available to assist in meeting health care needs will improve Outcome: Progressing Problem: Physical Regulation: Goal: Ability to maintain clinical measurements within normal limits will improve Outcome: Progressing Goal: Will regain or maintain usual level of consciousness Outcome: Progressing Problem: Respiratory: Goal: Ability to maintain adequate ventilation will improve Outcome: Progressing Problem: Self-Care: Goal: Ability to perform activities of daily living will improve Outcome: Progressing Problem: Tissue Perfusion: Goal: Signs of adequate cerebral perfusion will increase Outcome: Progressing Problem: Lack of Knowledge: Goal: Knowledge on safety and abstaining from self-injurious behavior will increase Outcome: Progressing Problem: Lack of Knowledge: Goal: Knowledge of restraints will improve Description: INTERVENTIONS: 1. Educate patient/caregiver on restraints Outcome: Progressing Problem: Lack of Knowledge: Goal: Ability to state ways to decrease the risk of falls will improve Outcome: Progressing Problem: Safety: Goal: Will remain free from falls Outcome: Progressing Goal: Will remain free from injury from falls Outcome: Progressing Goal: Will remain free from falls and injury in home environment Outcome: Progressing Goals: Clinical Goals for the Shift: vs, pain management Summary: pain managed this shift, pt vs wnl. * Plan of Care - Milagros Barrientos RN - 07/02/2021 3:01 PM CDT Problem: Health Behavior: Goal: Understanding [...] Outcome: Progressing Problem: Lack of Knowledge: Goal: Knowledge of restraints will improve Description: INTERVENTIONS: 1. Educate patient/caregiver on restraints Outcome: Progressing Problem: Safety - Medical Restraint Goal: Remains free of injury from restraints (Restraint for Interference with Necktie Maker) Description: INTERVENTIONS: 1. Identify and document the criteria for restraint 2. Determine that other, less restrictive measures have been tried or would not be effective beforeapplying the restraint 3. Evaluate the patient's condition at the time of restraint application and continue to monitor patient's condition 4. Inform patient/family regarding the reason for restraint 5. Q2H: Monitor safety checks including skin, circulation, sensory,respiratory, psychosocial status, comfort, nutrition and hydration 6. Ensure safety/first aid measures are in place (i.e. Quick release, suction, crash cart, etc.) Outcome: Progressing Goal: Free from restraint(s) (Restraint for Interference with Necktie Maker) Description: INTERVENTIONS: 1. Q2H and PRN: Assess and document the continuing need for restraints 2. Q24H: Continued use of restraint requires LIP to perform face to face examination and written order (ICU restraint orders are not reviewed Q24H only at the time of initiation) 3. Identify and implement measures to help patient regain control Outcome: Progressing Problem: Lack of Knowledge: Goal: Risk factors for ineffective tissue perfusion will decrease Outcome: Progressing Goal: Knowledge of disease or condition will improve Outcome: Progressing Goal: Ability to identify and develop effective coping behavior will improve Outcome: Progressing Problem: Health Behavior: Goal: Identification of resources available to assist in meeting health care needs will improve Outcome: Progressing Problem: Physical Regulation: Goal: Ability to maintain clinical measurements within normal limits will improve Outcome: Progressing Goal: Will regain or maintain usual level of consciousness Outcome: Progressing Problem: Respiratory: Goal: Ability to maintain adequate ventilation will improve Outcome: Progressing Problem: Self-Care: Goal: Ability to perform activities of daily living will improve Outcome: Progressing Problem: Tissue Perfusion: Goal: Signs of adequate cerebral perfusion will increase Outcome: Progressing Problem: Lack of Knowledge: Goal: Knowledge on safety and abstaining from self-injurious behavior will increase Outcome: Progressing Problem: Lack of Knowledge: Goal: Knowledge of restraints will improve Description: INTERVENTIONS: 1. Educate patient/caregiver on restraints Outcome: Progressing Problem: Lack of Knowledge: Goal: Ability to state ways to decrease the risk of falls will improve Outcome: Progressing Problem: Safety: Goal: Will remain free from falls Outcome: Progressing Goal: Will remain free from injury from falls Outcome: Progressing Goal: Will remain free from falls and injury in home environment Outcome: Progressing Goals: Clinical Goals for the Shift: vs, pain management n Summary: pt has been off floor getting MRI most of morning, pt returned to floor floor 20 minutes ate breakfast and went to CT. Pt returned to floor 30 minutes later. Pt shena alarm on and audible. Pt set off alarm multiple times. Pt assisted with needs. * Plan of Care - Damir Franks RRT - 07/02/2021 9:02 AM CDT PT tolerated CPT therapy well. PT was unable to ezpap. PT is already getting CPT ezpap to be discontinued. Continue as ordered * Plan of Care - Yolanda Jackson RN - 07/01/2021 11:55 PM CDT Problem: Health Behavior: Goal: Understanding [...] Outcome: Progressing Problem: Lack of Knowledge: Goal: Knowledge of restraints will improve Description: INTERVENTIONS: 1. Educate patient/caregiver on restraints Outcome: Progressing Problem: Safety - Medical Restraint Goal: Remains free of injury from restraints (Restraint for Interference with Necktie Maker) Description: INTERVENTIONS: 1. Identify and document the criteria for restraint 2. Determine that other, less restrictive measures have been tried or would not be effective beforeapplying the restraint 3. Evaluate the patient's condition at the time of restraint application and continue to monitor patient's condition 4. Inform patient/family regarding the reason for restraint 5. Q2H: Monitor safety checks including skin, circulation, sensory,respiratory, psychosocial status, comfort, nutrition and hydration 6. Ensure safety/first aid measures are in place (i.e. Quick release, suction, crash cart, etc.) Outcome: Progressing Goal: Free from restraint(s) (Restraint for Interference with Necktie Maker) Description: INTERVENTIONS: 1. Q2H and PRN: Assess and document the continuing need for restraints 2. Q24H: Continued use of restraint requires LIP to perform face to face examination and written order (ICU restraint orders are not reviewed Q24H only at the time of initiation) 3. Identify and implement measures to help patient regain control Outcome: Progressing Problem: Lack of Knowledge: Goal: Risk factors for ineffective tissue perfusion will decrease Outcome: Progressing Goal: Knowledge of disease or condition will improve Outcome: Progressing Goal: Ability to identify and develop effective coping behavior will improve Outcome: Progressing Problem: Health Behavior: Goal: Identification of resources available to assist in meeting health care needs will improve Outcome: Progressing Problem: Physical Regulation: Goal: Ability to maintain clinical measurements within normal limits will improve Outcome: Progressing Goal: Will regain or maintain usual level of consciousness Outcome: Progressing Problem: Respiratory: Goal: Ability to maintain adequate ventilation will improve Outcome: Progressing Problem: Self-Care: Goal: Ability to perform activities of daily living will improve Outcome: Progressing Problem: Tissue Perfusion: Goal: Signs of adequate cerebral perfusion will increase Outcome: Progressing Problem: Lack of Knowledge: Goal: Knowledge on safety and abstaining from self-injurious behavior will increase Outcome: Progressing Problem: Lack of Knowledge: Goal: Knowledge of restraints will improve Description: INTERVENTIONS: 1. Educate patient/caregiver on restraints Outcome: Progressing Problem: Lack of Knowledge: Goal: Ability to state ways to decrease the risk of falls will improve Outcome: Progressing Problem: Safety: Goal: Will remain free from falls Outcome: Progressing Goal: Will remain free from injury from falls Outcome: Progressing Goal: Will remain free from falls and injury in home environment Outcome: Progressing Goals: Clinical Goals for the Shift: vs, pain management * Significant Event - Jahaira Brown NP - 07/01/2021 3:44 PM CDT TEXTILE MACHINE MAINTENANCE MECHANIC notified by RN that patient had autoremoved his SBFT. According to RN, patient able to eat applesauce, grits, and ensure pudding for breakfast, and had ensure pudding for lunch. Patient to remain 100% assist with meals but plan to hold off on replacing SBFT at this time. Jahaira Brown AGACNP-BC * Plan of Care - Milagros Barrientos RN - 07/01/2021 11:22 AM CDT Problem: Health Behavior: Goal: Understanding [...] Outcome: Progressing Problem: Lack of Knowledge: Goal: Knowledge of restraints will improve Description: INTERVENTIONS: 1. Educate patient/caregiver on restraints Outcome: Progressing Problem: Safety - Medical Restraint Goal: Remains free of injury from restraints (Restraint for Interference with Necktie Maker) Description: INTERVENTIONS: 1. Identify and document the criteria for restraint 2. Determine that other, less restrictive measures have been tried or would not be effective beforeapplying the restraint 3. Evaluate the patient's condition at the time of restraint application and continue to monitor patient's condition 4. Inform patient/family regarding the reason for restraint 5. Q2H: Monitor safety checks including skin, circulation, sensory,respiratory, psychosocial status, comfort, nutrition and hydration 6. Ensure safety/first aid measures are in place (i.e. Quick release, suction, crash cart, etc.) Outcome: Progressing Goal: Free from restraint(s) (Restraint for Interference with Necktie Maker) Description: INTERVENTIONS: 1. Q2H and PRN: Assess and document the continuing need for restraints 2. Q24H: Continued use of restraint requires LIP to perform face to face examination and written order (ICU restraint orders are not reviewed Q24H only at the time of initiation) 3. Identify and implement measures to help patient regain control Outcome: Progressing Problem: Lack of Knowledge: Goal: Risk factors for ineffective tissue perfusion will decrease Outcome: Progressing Goal: Knowledge of disease or condition will improve Outcome: Progressing Goal: Ability to identify and develop effective coping behavior will improve Outcome: Progressing Problem: Health Behavior: Goal: Identification of resources available to assist in meeting health care needs will improve Outcome: Progressing Problem: Physical Regulation: Goal: Ability to maintain clinical measurements within normal limits will improve Outcome: Progressing Goal: Will regain or maintain usual level of consciousness Outcome: Progressing Problem: Respiratory: Goal: Ability to maintain adequate ventilation will improve Outcome: Progressing Problem: Self-Care: Goal: Ability to perform activities of daily living will improve Outcome: Progressing Problem: Tissue Perfusion: Goal: Signs of adequate cerebral perfusion will increase Outcome: Progressing Problem: Lack of Knowledge: Goal: Knowledge on safety and abstaining from self-injurious behavior will increase Outcome: Progressing Problem: Lack of Knowledge: Goal: Knowledge of restraints will improve Description: INTERVENTIONS: 1. Educate patient/caregiver on restraints Outcome: Progressing Problem: Lack of Knowledge: Goal: Ability to state ways to decrease the risk of falls will improve Outcome: Progressing Problem: Safety: Goal: Will remain free from falls Outcome: Progressing Goal: Will remain free from injury from falls Outcome: Progressing Goal: Will remain free from falls and injury in home environment Outcome: Progressing Goals: Clinical Goals for the Shift: vs, pain management Summary: pain being managed at this time * Plan of Care - Breanna Lux RRT - 07/01/2021 9:23 AM CDT Patient is currently ordered on VEST therapy. Patient tolerated without issue.. Plan - Continue treatment as ordered. * Plan of Care - Gallo Reich RN - 06/30/2021 7:42 PM CDT Goals: Clinical Goals for the Shift: safe environment, VSS, keep skin clean and dry, reorient Summary: Problem: Activity: Goal: Mobility will improve Outcome: Progressing Problem: Skin Integrity: Goal: Risk for impaired skin integrity will decrease Outcome: Progressing Problem: Safety: Goal: Will remain free from falls Outcome: Progressing * Plan of Care - Kristi Starr RN - 06/30/2021 11:17 AM CDT Goals: Problem: Health Behavior: Goal: Understanding of discharge [...] Outcome: Progressing Problem: Lack of Knowledge: Goal: Knowledge of restraints will improve Description: INTERVENTIONS: 1. Educate patient/caregiver on restraints Outcome: Progressing Problem: Safety - Medical Restraint Goal: Remains free of injury from restraints (Restraint for Interference with Necktie Maker) Description: INTERVENTIONS: 1. Identify and document the criteria for restraint 2. Determine that other, less restrictive measures have been tried or would not be effective beforeapplying the restraint 3. Evaluate the patient's condition at the time of restraint application and continue to monitor patient's condition 4. Inform patient/family regarding the reason for restraint 5. Q2H: Monitor safety checks including skin, circulation, sensory,respiratory, psychosocial status, comfort, nutrition and hydration 6. Ensure safety/first aid measures are in place (i.e. Quick release, suction, crash cart, etc.) Outcome: Progressing Goal: Free from restraint(s) (Restraint for Interference with Necktie Maker) Description: INTERVENTIONS: 1. Q2H and PRN: Assess and document the continuing need for restraints 2. Q24H: Continued use of restraint requires LIP to perform face to face examination and written order (ICU restraint orders are not reviewed Q24H only at the time of initiation) 3. Identify and implement measures to help patient regain control Outcome: Progressing Problem: Lack of Knowledge: Goal: Risk factors for ineffective tissue perfusion will decrease Outcome: Progressing Goal: Knowledge of disease or condition will improve Outcome: Progressing Goal: Ability to identify and develop effective coping behavior will improve Outcome: Progressing Problem: Health Behavior: Goal: Identification of resources available to assist in meeting health care needs will improve Outcome: Progressing Problem: Physical Regulation: Goal: Ability to maintain clinical measurements within normal limits will improve Outcome: Progressing Goal: Will regain or maintain usual level of consciousness Outcome: Progressing Problem: Respiratory: Goal: Ability to maintain adequate ventilation will improve Outcome: Progressing Problem: Self-Care: Goal: Ability to perform activities of daily living will improve Outcome: Progressing Problem: Tissue Perfusion: Goal: Signs of adequate cerebral perfusion will increase Outcome: Progressing Problem: Lack of Knowledge: Goal: Knowledge on safety and abstaining from self-injurious behavior will increase Outcome: Progressing Problem: Lack of Knowledge: Goal: Knowledge of restraints will improve Description: INTERVENTIONS: 1. Educate patient/caregiver on restraints Outcome: Progressing Problem: Lack of Knowledge: Goal: Ability to state ways to decrease the risk of falls will improve Outcome: Progressing Problem: Safety: Goal: Will remain free from falls Outcome: Progressing Goal: Will remain free from injury from falls Outcome: Progressing Goal: Will remain free from falls and injury in home environment Outcome: Progressing Clinical Goals for the Shift: safe environment, VSS, keep skin clean and dry, reorient Summary: Patient's general appearance seems improved. Patient is more awake with his eyes open and calmly resting in bed not trying to pull at lines and tubes. Patient had a bowel movement and bath this morning. VSS. Patient ate 50% of breakfast and was able to follow commands and sit on the side of the bed with PT. Will continue to monitor. * Plan of Care - Christine Oliveira - 06/30/2021 10:16 AM CDT Problem: Dressings Lower Extremities Goal: STG - Patient to complete lower body dressing Description: With Mod A Outcome: Progressing Problem: Grooming Goal: STG - Patient will complete grooming Description: In unsupported sitting with Mod A Outcome: Progressing Problem: OT Misc Goal: OT STG - Misc 1 Description: Patient will maintain static and dynamic sitting balance with mod A in preparation forADL tasks. Outcome: Progressing Goal: OT STG - Misc 2 Description: Patient will follow one step commands with no verbal cues Outcome: Progressing Cosigned by Vane Baker OT at 06/30/2021 2:39 PM CDT * Plan of Care - Grace Delacruz RRT - 06/30/2021 8:47 AM CDT Patient problems but not limited to Acute Traumatic Brain Injury with Subarachnoid Hemorrhage and Intraventricular Hemorrhage, Acute Encephalopathy S/P fall. Hx ETOH/Tobaccoo use; suspected COPD, CHF. ?? Of note patient is significantly [place] and Blind, intermintently cooperative. Patient does not tolerate cough assist. Last CXR 06/15 Bronchial Hygiene assessment score 13 Pt does not tolerated cough assist and has not for over 4 days, pt no longer in [facility]. Does well with vest CPT and does great with Acapella PEP with assistance. Due to not tolerating cough assist formultiple days, has CPT and PEP scheduled d/cing cough assist. Continue RCS as ordered Update 15:30 Pt back from tube feed placement and more confused but still able to do Acapella with coaching. Cough weaker and slightly more coarse. May have been given pain meds for procedure and mayneed NT suction. * Plan of Care - Kevin Izquierdo RRT - 06/30/2021 2:22 AM CDT Pt is on a 40% HHFT and was given Cough assist BID followed by CPT BID . Pt tolerated fairly well with spontaneous cough of small amount of secretions that were swallowed. RT to continue to monitor * Plan of Care - Maria Del Rosario Cai RN - 06/30/2021 12:46 AM CDT Problem: Health Behavior: Goal: Understanding [...] Outcome: Progressing Problem: Lack of Knowledge: Goal: Knowledge of restraints will improve Description: INTERVENTIONS: 1. Educate patient/caregiver on restraints Outcome: Progressing Problem: Safety - Medical Restraint Goal: Remains free of injury from restraints (Restraint for Interference with Necktie Maker) Description: INTERVENTIONS: 1. Identify and document the criteria for restraint 2. Determine that other, less restrictive measures have been tried or would not be effective beforeapplying the restraint 3. Evaluate the patient's condition at the time of restraint application and continue to monitor patient's condition 4. Inform patient/family regarding the reason for restraint 5. Q2H: Monitor safety checks including skin, circulation, sensory,respiratory, psychosocial status, comfort, nutrition and hydration 6. Ensure safety/first aid measures are in place (i.e. Quick release, suction, crash cart, etc.) Outcome: Progressing Goal: Free from restraint(s) (Restraint for Interference with Necktie Maker) Description: INTERVENTIONS: 1. Q2H and PRN: Assess and document the continuing need for restraints 2. Q24H: Continued use of restraint requires LIP to perform face to face examination and written order (ICU restraint orders are not reviewed Q24H only at the time of initiation) 3. Identify and implement measures to help patient regain control Outcome: Progressing Problem: Lack of Knowledge: Goal: Risk factors for ineffective tissue perfusion will decrease Outcome: Progressing Goal: Knowledge of disease or condition will improve Outcome: Progressing Goal: Ability to identify and develop effective coping behavior will improve Outcome: Progressing Problem: Health Behavior: Goal: Identification of resources available to assist in meeting health care needs will improve Outcome: Progressing Problem: Physical Regulation: Goal: Ability to maintain clinical measurements within normal limits will improve Outcome: Progressing Goal: Will regain or maintain usual level of consciousness Outcome: Progressing Problem: Respiratory: Goal: Ability to maintain adequate ventilation will improve Outcome: Progressing Problem: Self-Care: Goal: Ability to perform activities of daily living will improve Outcome: Progressing Problem: Tissue Perfusion: Goal: Signs of adequate cerebral perfusion will increase Outcome: Progressing Problem: Lack of Knowledge: Goal: Knowledge on safety and abstaining from self-injurious behavior will increase Outcome: Progressing Problem: Lack of Knowledge: Goal: Knowledge of restraints will improve Description: INTERVENTIONS: 1. Educate patient/caregiver on restraints Outcome: Progressing Problem: Lack of Knowledge: Goal: Ability to state ways to decrease the risk of falls will improve Outcome: Progressing Problem: Safety: Goal: Will remain free from falls Outcome: Progressing Goal: Will remain free from injury from falls Outcome: Progressing Goal: Will remain free from falls and injury in home environment Outcome: Progressing Clinical Goals for the Shift: safety, VSS Summary: pt had an episode of low BS. VSS stable. Restless. Denies pain and doesn't grimace in pain. Taking medication crushed in applesauce well. Alert and orientated to self some times. * Plan of Care - Chyna Tucker SLP - 06/29/2021 1:19 PM CDT Problem: Swallowing Goal: LTG - Patient will tolerate the least restrictive diet consistency to allow for safe consumption of daily meals Outcome: Progressing Goal: STG - Patient will tolerate recommended food and liquid consistencies without clinical signs and symptoms of aspirations Outcome: Progressing Goal: STG - Patient will demonstrate safe oral intake to advance diet Outcome: Progressing Professional Recommendations Diet Solids Recommendation: Dysphagia diet-Phase 1 Diet Liquids Recommendations: NPO for liquids Recommended Form of Medications: Crushed, With puree Compensatory Strategies/Modifications: Small bites, Slow rate Postural Recommendations: Upright 90 degrees Assistance with feeding/swallowing: Full supervision with meals Specialty Instructions/Modifications: thorough oral care 2-3x/day Pt seen on 6400 for swallow tx this date. Pt awake, in bed upon COTTAGE CHEESE MAKER arrival in room. No family/visitors present. Pt with face tent, mittens, and wrist restraints in bed but not in place. Pt observed to be easily distracted and unable to follow commands. A&Ox1 (name), unable to state place/situation/stated incorrect date for birthday. COTTAGE CHEESE MAKER administered trials of puree. No s/s of aspiration withpuree trials. Pt required frequent redirection to task. Pt then pulling at blankets and NG noted zaire out of place and in covers. COTTAGE CHEESE MAKER notified RN. RN arrived and replaced bilateral mittens. COTTAGE CHEESE MAKER notified TEXTILE MACHINE MAINTENANCE MECHANIC of tx session. * Plan of Care - Kristi Starr RN - 06/29/2021 11:50 AM CDT Goals: Problem: Health Behavior: Goal: Understanding of discharge needs will improve 06/29/2021 1150 by Kristi Starr RN Outcome: Not Progressing 06/29/2021 1149 by Kristi Starr RN Outcome: Progressing Problem: Activity: Goal: Mobility will improve 06/29/2021 1150 by Kristi Starr RN Outcome: Not Progressing 06/29/2021 1149 by Kristi Starr RN Outcome: Progressing Problem: Lack of Knowledge: Goal: Understanding of ways to prevent future skin breakdown will improve 06/29/2021 1150 by Kristi Starr RN Outcome: Not Progressing 06/29/2021 1149 by Kristi Starr RN Outcome: Progressing Goal: Ability to identify appropriate dietary choices will improve 06/29/2021 1150 by Kristi Starr RN Outcome: Not Progressing 06/29/2021 1149 by Kristi Starr RN Outcome: Progressing Problem: Nutritional: Goal: Dietary intake will improve 06/29/2021 1150 by Kristi Starr RN Outcome: Not Progressing 06/29/2021 1149 by Kristi Starr RN Outcome: Progressing Goal: Ability to maintain a balanced intake and output will improve 06/29/2021 1150 by Kristi Starr RN Outcome: Not Progressing 06/29/2021 1149 by Kristi Starr RN Outcome: Progressing Problem: Skin Integrity: Goal: Risk for impaired skin integrity will decrease 06/29/2021 1150 by Kristi Starr RN Outcome: Not Progressing 06/29/2021 1149 by Kristi Starr RN Outcome: Progressing Goal: Ability to demonstrate warm and dry skin will improve 06/29/2021 1150 by Kristi Starr RN Outcome: Not Progressing 06/29/2021 1149 by Kristi Starr RN Outcome: Progressing Goal: Circulation will improve to fullest extent possible 06/29/2021 1150 by Kristi Starr RN Outcome: Not Progressing 06/29/2021 1149 by Kristi Starr RN Outcome: Progressing Problem: Lack of Knowledge: Goal: Knowledge of restraints will improve Description: INTERVENTIONS: 1. Educate patient/caregiver on restraints 06/29/2021 1150 by Kristi Starr RN Outcome: Not Progressing 06/29/2021 1149 by Kristi Starr RN Outcome: Progressing Problem: Safety - Medical Restraint Goal: Remains free of injury from restraints (Restraint for Interference with Necktie Maker) Description: INTERVENTIONS: 1. Identify and document the criteria for restraint 2. Determine that other, less restrictive measures have been tried or would not be effective beforeapplying the restraint 3. Evaluate the patient's condition at the time of restraint application and continue to monitor patient's condition 4. Inform patient/family regarding the reason for restraint 5. Q2H: Monitor safety checks including skin, circulation, sensory,respiratory, psychosocial status, comfort, nutrition and hydration 6. Ensure safety/first aid measures are in place (i.e. Quick release, suction, crash cart, etc.) 06/29/2021 1150 by Kristi Starr RN Outcome: Not Progressing 06/29/2021 1149 by Kristi Starr RN Outcome: Progressing Goal: Free from restraint(s) (Restraint for Interference with Necktie Maker) Description: INTERVENTIONS: 1. Q2H and PRN: Assess and document the continuing need for restraints 2. Q24H: Continued use of restraint requires LIP to perform face to face examination and written order (ICU restraint orders are not reviewed Q24H only at the time of initiation) 3. Identify and implement measures to help patient regain control 06/29/2021 1150 by Kristi Starr RN Outcome: Not Progressing 06/29/2021 1149 by Kristi Starr, GAURAV Outcome: Progressing Problem: Lack of Knowledge: Goal: Risk factors for ineffective tissue perfusion will decrease 06/29/2021 1150 by Kristi Starr, GAURAV Outcome: Not Progressing 06/29/2021 1149 by Kristi Starr, GAURAV Outcome: Progressing Goal: Knowledge of disease or condition will improve 06/29/2021 1150 by Kristi Starr RN Outcome: Not Progressing 06/29/2021 1149 by Kristi Starr, GAURAV Outcome: Progressing Goal: Ability to identify and develop effective coping behavior will improve 06/29/2021 1150 by Kristi Starr RN Outcome: Not Progressing 06/29/2021 1149 by Kristi Starr RN Outcome: Progressing Problem: Health Behavior: Goal: Identification of resources available to assist in meeting health care needs will improve 06/29/2021 1150 by Kristi Starr RN Outcome: Not Progressing 06/29/2021 1149 by Kristi Starr RN Outcome: Progressing Problem: Physical Regulation: Goal: Ability to maintain clinical measurements within normal limits will improve 06/29/2021 1150 by Kristi Starr RN Outcome: Not Progressing 06/29/2021 1149 by Kristi Starr RN Outcome: Progressing Goal: Will regain or maintain usual level of consciousness 06/29/2021 1150 by Kristi Starr, GAURAV Outcome: Not Progressing 06/29/2021 1149 by Kristi Starr, GAURAV Outcome: Progressing Problem: Respiratory: Goal: Ability to maintain adequate ventilation will improve 06/29/2021 1150 by Kristi Starr RN Outcome: Not Progressing 06/29/2021 1149 by Kristi Starr RN Outcome: Progressing Problem: Self-Care: Goal: Ability to perform activities of daily living will improve 06/29/2021 1150 by Kristi Starr, GAURAV Outcome: Not Progressing 06/29/2021 1149 by Kristi Starr, GAURAV Outcome: Progressing Problem: Tissue Perfusion: Goal: Signs of adequate cerebral perfusion will increase 06/29/2021 1150 by Kristi Starr RN Outcome: Not Progressing 06/29/2021 1149 by Kristi Starr RN Outcome: Progressing Problem: Lack of Knowledge: Goal: Knowledge on safety and abstaining from self-injurious behavior will increase 06/29/2021 1150 by Kristi Starr RN Outcome: Not Progressing 06/29/2021 1149 by Kristi Starr RN Outcome: Progressing Problem: Lack of Knowledge: Goal: Knowledge of restraints will improve Description: INTERVENTIONS: 1. Educate patient/caregiver on restraints 06/29/2021 1150 by Kristi Starr RN Outcome: Not Progressing 06/29/2021 1149 by Kristi Starr RN Outcome: Progressing Problem: Lack of Knowledge: Goal: Ability to state ways to decrease the risk of falls will improve 06/29/2021 1150 by Kristi Starr RN Outcome: Not Progressing 06/29/2021 1149 by Kristi Starr RN Outcome: Progressing Problem: Safety: Goal: Will remain free from falls 06/29/2021 1150 by Kristi Starr RN Outcome: Not Progressing 06/29/2021 1149 by Kristi Starr RN Outcome: Progressing Goal: Will remain free from injury from falls 06/29/2021 1150 by Kristi Starr RN Outcome: Not Progressing 06/29/2021 1149 by Kristi Starr RN Outcome: Progressing Goal: Will remain free from falls and injury in home environment 06/29/2021 1150 by Kristi Starr RN Outcome: Not Progressing 06/29/2021 1149 by Kristi Starr RN Outcome: Progressing Clinical Goals for the Shift: VSS, neuro checks, up OOB, wean O2 Summary: Patient is confused not able to answer orientation Qs, patient refused breakfast. His O2 has been weaned to 3L and he has remained free of falls. Patient unable to get OOB had to be slid to a stretcher for duplex. Will continue to monitor. * Plan of Care - Fifi Lawson MSW - 06/29/2021 11:46 AM CDT DISCHARGE PLANNING: Problem: Ensure acute medical needs are met and that patient has a safe discharge plan. Goal: Secure a facility that patient/family are agreeable with and ensure patient has continuum of care upon discharge. Pt discussed with Physician, airplane flight attendant supervisor, Social Work and Case Management. Per DCAM, pt is not medically stable for discharge at this time. Pt is currently in restraints, which could be a potential barrier to discharge. Pt has PT recs for SNF from 06/28 and OT recs for IPR from 06/29. Pt is A&Ox1 at baseline so AMARJIT met with pt's significant other, Raine Redman ([phone]) to discuss discharge plan adry. Raine states she wants pt to get therapy to be able to walk again. Raine states, He cannot come home until he can walk . AMARJIT and Raine spoke about the possibility of SNF placement. Raine states, I wish you wouldn't call those places [facility]. Those places do not provide therapy and don't tell me that they do. Raine requested information on Acute Inpatient Rehabs. SW provided Raine with information on IPRs but informed Raine that it's always possible pt may not be accepted to those facilities. AMARJIT encouraged Raine to also consider SNFs as a potential alternate plan if IPRs do not accept pt. Raine states she wants pt to be placed in [place] and that she would be agreeable to looking at SNFs within 20 miles of [place], [place]. AMARJIT sent SNF list and IPR list to Anne e-mail at [email or web address]. Current plan is for pt to d/c to SNF vs. IPR when medically stable.Raine is agreeable to plan. SW to follow up with Raine to obtain SNF/IPR preferences and send referrals. Social work to follow for discharge planning and emotional support as necessary. ADD: Saturday, 07/03 Insurance: Anthem Medicare Primary Contact: significant other, Raine Redman ([phone]) PAIGE Wilson [facility] Social Work * Plan of Care - Lizzeth Huitron MSW - 06/29/2021 9:41 AM CDT Per [facility] rounds with Dividend Deposit Voucher Clerk, Moving Consultant, Charge Nurse, and MD, the patient is not medically stable for discharge at this time. Problem: Ensure acute medical needs are met and that patient has a safe discharge plan. Goal: Secure a placement that patient/family are agreeable with and ensure patient has continuum ofcare. Discharge plan: Patient transferred from Neuro ICU to [facility]. Patient has PT recs for SNF; OT recs for IPR. Patient remains in restraints (mittens-L and R; bilateral wrists- L and R). Discharge planning pending due to medical workup pending and barrier due to restraints. SW will contact patient's significant other to discuss discharge planning and follow up for SNF preferences. Patient will also need to remain out of restraints for 24-48 hours pending accepting SNF restraint policy. Insurance: Anthem Medicare Adv. ADD: 07/03 SW to follow. PAIGE Knowles * Plan of Care - Kevin Izquierdo RRT - 06/29/2021 3:08 AM CDT Pt is on a 40% HHFT and given Cough assist BID followed by CPT BID . Pt tolerated fairly well with spontaneous cough of small amount of secretions that were swallowed. RT to continue to monitor * Plan of Care - Maria Del Rosario Cai RN - 06/29/2021 1:22 AM CDT Problem: Health Behavior: Goal: Understanding [...] Outcome: Progressing Problem: Lack of Knowledge: Goal: Knowledge of restraints will improve Description: INTERVENTIONS: 1. Educate patient/caregiver on restraints Outcome: Progressing Problem: Safety - Medical Restraint Goal: Remains free of injury from restraints (Restraint for Interference with Necktie Maker) Description: INTERVENTIONS: 1. Identify and document the criteria for restraint 2. Determine that other, less restrictive measures have been tried or would not be effective beforeapplying the restraint 3. Evaluate the patient's condition at the time of restraint application and continue to monitor patient's condition 4. Inform patient/family regarding the reason for restraint 5. Q2H: Monitor safety checks including skin, circulation, sensory,respiratory, psychosocial status, comfort, nutrition and hydration 6. Ensure safety/first aid measures are in place (i.e. Quick release, suction, crash cart, etc.) Outcome: Progressing Goal: Free from restraint(s) (Restraint for Interference with Necktie Maker) Description: INTERVENTIONS: 1. Q2H and PRN: Assess and document the continuing need for restraints 2. Q24H: Continued use of restraint requires LIP to perform face to face examination and written order (ICU restraint orders are not reviewed Q24H only at the time of initiation) 3. Identify and implement measures to help patient regain control Outcome: Progressing Problem: Lack of Knowledge: Goal: Risk factors for ineffective tissue perfusion will decrease Outcome: Progressing Goal: Knowledge of disease or condition will improve Outcome: Progressing Goal: Ability to identify and develop effective coping behavior will improve Outcome: Progressing Problem: Health Behavior: Goal: Identification of resources available to assist in meeting health care needs will improve Outcome: Progressing Problem: Physical Regulation: Goal: Ability to maintain clinical measurements within normal limits will improve Outcome: Progressing Goal: Will regain or maintain usual level of consciousness Outcome: Progressing Problem: Respiratory: Goal: Ability to maintain adequate ventilation will improve Outcome: Progressing Problem: Self-Care: Goal: Ability to perform activities of daily living will improve Outcome: Progressing Problem: Tissue Perfusion: Goal: Signs of adequate cerebral perfusion will increase Outcome: Progressing Problem: Lack of Knowledge: Goal: Knowledge on safety and abstaining from self-injurious behavior will increase Outcome: Progressing Problem: Lack of Knowledge: Goal: Knowledge of restraints will improve Description: INTERVENTIONS: 1. Educate patient/caregiver on restraints Outcome: Progressing Problem: Lack of Knowledge: Goal: Ability to state ways to decrease the risk of falls will improve Outcome: Progressing Problem: Safety: Goal: Will remain free from falls Outcome: Progressing Goal: Will remain free from injury from falls Outcome: Progressing Goal: Will remain free from falls and injury in home environment Outcome: Progressing Goals: Clinical Goals for the Shift: comfort, vss Summary: pt resting comfortably, was restless at the start of the shift. Pt tolerated medication through NG. Q2h repo and restraint assessment. Condom cath in place. Pt only orientated to self. Denies pain and doesn't appear to be in pain. 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 Had first been taken to [facility] via EMS on 06/08 after sustaining fall with LOC at home. At [place] initially CT head negative and he was admitted overnight 06/08-06/09 for further evaluation and treatment of possible syncopal episodes. There was reported involuntary movements and nystagmus for which he was loaded with Keppra and planned for EEG, the course of this is unclear. He had reportedly been started on CIWA protocol with librium. An MRI later revealed SAH, IVH, small IPH for whi ch he was ultimately transferred to [facility] under the neurosurgerical service the evening of 06/11. Overnight 06/11-06/12 not following commands and somnolent, possibly worse following Ativan administration for high CIWA score (15, scoring for disorientation and poor eye contact which was reportedly baselineon admission). Transferred from floor to stepdown unit the morning of 06/12 for closer observation and NSGY consulted medicine service for assistance with syncope work-up and management of multiple comorbidities. Ongoing somnolence/lethargy throughout the morning and on medicine consult eval concern for being at risk for airway compromise with his impaired level of consciousness. A nasal trumpet was placed, POCT ABG 7.43 and he was then transferred to 9[address] ICU for closer monitoring. [facility] records received and reviewed. Summarized as follows (see paper chart for records). ICU Course: Significant for ongoing encephalopathy of unclear etiology (likely multifactorial with cEEG negative for seizure and MRI negative for stroke), a- fib RVR requiring amio load and increase in home metoprolol dose, oliguria ultimately responsive to lasix, and dysphagia requiring NG placement. Despite his traumatic Brain Injury with SAH and IVH, he has sustained his neurologic exam. On 06/17, scrotal drainage sent for cultures. US demonstrated left hydrocele. CT pelvis positive forleft hydrocele, left scrotal cellulitis and left non- displaced trochanteric fracture. Currently on 12 day course of antibiotics with bactrim and flaygyl that will end on PM of 06/29 (susceptibilities sent to [place]). Extubated on 06/18 and placed on high humidity face tent to help mobilize secretions. Ortho consulted for left trochanteric fracture but no plan for surgery. Postivive orthostatics notedon 06/22 (unable to obtain standing BP but positive from lying to sitting). Due to concern for syncope, decreased terazosin dose to 10 mg daily. Patient has been unable to weight bear on LLE with PT, MRI L hip is pending to further assess for inury. Passed MBS on 06/26 for dysphagia diet (no liquids)and calorie count initiated; tube feeds discontinued to encourage oral intake. Now off HHFT and on room air since 06/26 and tolerating well with CPT and cough assist BID. For his ICU delirium, has responded well to ramelteon 8mg nightly at 1800 to establish a normal sleep/wake cycle and trazodone 100mg qHs. NEURO IMAGING (Most recent) No new imaging (last HCT 06/15/2021). PHYSICAL EXAM: HEENT: Mucous membranes moist, poor dentition. Sclera anicteric. Cardiac: Irregularly irregular. A-fib. No M/R/G. Pulmonary: Even, unlabored respirations. Symmetric chest rise and fall. Coarse throughout. Abdomen: Rounded but non-distended in appearance, hypoactive bowel sounds, soft/non-tender to palpation. Skin: Warm and dry. NEURO EXAM (of note, patient very [place] & legally blind) Mental Status Awake while sitting in chair, poor attention span, briefly regards, follows simple commands, oriented to person only Cranial Nerves PERRL, gaze midline, L ptosis, R nasolabial flattening at rest but activates symmetrically, spontaneous cough, +dysarthria Motor Moves all extremities spontaneously NEUROLOGICAL # Traumatic brain injury w/ tSAH/IVH in setting of fall and AC -- s/p Keppra x7 days, seizure precautions -- neuro checks q4h + sleep hygiene -- PT, OT, COTTAGE CHEESE MAKER consults # Encephalopathy - Improving -- suspect multifactorial with alcohol withdrawal (OSH given librium), TBI, hospital admission/delirium, possible Wernicke's -- encephalopathy labs unrevealing: TSH 0.8, Folate > 20, B12 742, RPR non- reactive, HIV non-reactive, hepatitis panel non-reactive, ammonia < 20 -- cEEG (06/12-06/13) negative for seizures; EEG (06/15) negative for seizures -- delirium precautions -- s/p 9 days folic acid, 3 days 500 mg IV q8h, thiamine followed by 250 mg x5 days -- continue MVI daily and thiamine 100 mg daily indefinitely # Insomnia - sleeping well per RN -- sleep hygiene ordered -- continue ramelteon at 8mg 1800 and trazodone 100 mg qHS CARDIOVASCULAR and HEME TTE (06/13): LA is mildly dilated. Normal RV cavity size and function. LV cavity size is normal. Concentric LV remodeling with normal EF=70-75%. Normal Inferior vena cava. Dilated JOSE RAFAEL=4.7 cm and ascending aorta=3.9 cm. # Atrial fibrillation with RVR -- s/p amio gtt 06/13-06/14; will need outpatient f/u with Panelboard Operator -- previously on amiodarone, discontinued (not optimal medication for this patient to be continued on fdc) -- continue metoprolol 50 mg BID for rate control -- monitor on tele, goal HR<120 -- ensure K+ and Mg adequately repleted -- acute SAH/IVH currently precludes therapeutic anticoagulation (previously on Eliquis); NSGY recommends resuming eliquis 1 month from injury # Chronic systolic HF -- per Cardiology note from 01/25/21: asymptomatic mild LV dysfunction, suspect tachycardia mediated -- previously EF 45-50% (2020), now EF 70-75% as of 06/13 -- continue metoprolol as above -- holding home lisinopril # Possible syncope -- + orthostatic symptoms as outpatient per and + orthostatics at OSH -- TTE unrevealing -- orthostatics positive 06/22 # History of DVT 2019 -- holding home eliquis (most recently reportedly for a-fib), last dose 06/08 -- LED (06/14) negative for DVT # HTN -- holding home lisinopril 40 mg daily for now -- SBP <160 # HLD -- continue home pravastatin 40 mg daily # Macrocytic anemia -- likely 2/2 long-standing alcohol use -- folate/B12 WNL -- CBC daily -- hgb goal >7 PULMONARY # History of COPD -- extubated 06/18, remained on high humidity face tent until 06/25 and now stable on RA -- cough assist and CPT BID -- SPO2 goal 88-92% -- mobilize as able -- PRN albuterol RENAL # BPH -- continue home terazosin 10 mg daily # Mild hyperkalemia -- possibly related to bactrim -- trend daily BMP # Hyponatremia -- Na dropped to 133 overnight on 06/27, likely in s/o dehydration -- start NS fluids at 75 mL/hr while NO liquids per COTTAGE CHEESE MAKER on diet (will end after 2L given) GI and ENDO # Nutrition/Dysphagia -- dysphagia 1 diet with NO liquids -- continue calorie count x3 days to ensure adequate PO (initiated on 06/27, continue through 06/30),Nutrition following -- bowel regimen with colace and senna # GERD -- continue protonix 40 mg daily INFECTION RELEVANT/MOST RECENT MICRO LAB DATA: ?? Blood cultures (06/14): Neg ?? Respiratory culture (06/16): Insignificant growth based on current clinical standards, final ?? COVID-19 RNA (06/12): Neg ?? UA (06/12): Neg ?? Hepatitis panel (06/12): Neg ?? Scrotal abscess cultures (06/17): Abundant Bacteroides fragilis, rare mixed microorganisms (susceptibilities pending) Meds: ??? S/p Clindamycin 600 mg q8h (06/18-06/20) ??? Flagyl 500 mg q8h (06/20 - ??? Bactrim 320 mg BID (06/20 - # Bacteroides Fragilis Scrotal abscess with cellulitis # Left hydrocele -- US scrotum (06/17) with left hydrocele and cellulitis -- CT pelvis w contrast (06/17) positive for small left scrotal hydrocele, negative for soft tissue gas, and positive for non-displaced trochanteric fracture -- Urology consulted:10 day course abx and should heal on its own, call if infection appears worse or changes -- clindamycin discontinued 06/20 -- continue flagyl and bactrim through 06/29 for a total of 12 days since susceptibilities are not back yet -- f/u susceptibilities (sent to [place]) # Leukocytosis -- WBC count now trending down (now 10 from 17), patient has remained afebrile -- yusuf culture if spikes >/= 38.5 -- trend CBC daily MUSCULOSKELETAL # Left greater trochanteric fracture -- Ortho consulted; WBAT LLE and no need for MRI, can trial mobilization with PT -- GTS has no further workup, accepted for transfer -- Ortho signed off -- due to patient not being able to weight bear, plan to obtain MRI left hip to further assess injury ACCESS Lines ?? PIV x2 ?? Left NG tube Coom[place] ??? External urinary device VTE Prophylaxis Last Venous Doppler: 06/14/21 negative Prophylaxis: SCDs, SQH 5,000 units q8h CODE STATUS: Full Code Disposition: Transfer to [facility] Trauma floor Family Info: Raine [phone] (significant other, ex- but back together - reportedly POA and supposed to bring paperwork in) Latha Díaz [phone] (daughter) Both family members were called and informed of patient's transfer on 06/28 * Plan of Care - Latha Chaves RN - 06/28/2021 8:31 AM CDT Problem: Activity: Goal: Mobility will improve Outcome: Progressing Problem: Skin Integrity: Goal: Risk for impaired skin integrity will decrease Outcome: Progressing Goal: Circulation will improve to fullest extent possible Outcome: Progressing Problem: Nutritional: Goal: Dietary intake will improve Outcome: Not Progressing Problem: Lack of Knowledge: Goal: Knowledge of restraints will improve Description: INTERVENTIONS: 1. Educate patient/caregiver on restraints Outcome: Not Progressing Goals: Clinical Goals for the Shift: Q1 VS, Q4 neuro checks, promote comfort and safety, pain management, OOBTC. Summary: Q1 VS, Q4 neuro checks, promote comfort and safety, pain management, OOBTC. * Plan of Care - Dmitry Pedroza RRT - 06/28/2021 12:38 AM CDT Pt is on 40% HHFT . Pt given Cough assist BID followed by CPT BID . Pt tolerated fairly well with spontaneous cough of small amount of secretions that were swallowed . RCS to assess and treat. * Plan of Care - Mercedez Fritz RN - 06/27/2021 11:51 PM CDT Problem: Health Behavior: Goal: Understanding [...] Outcome: Progressing Problem: Lack of Knowledge: Goal: Knowledge of restraints will improve Description: INTERVENTIONS: 1. Educate patient/caregiver on restraints Outcome: Progressing Problem: Safety - Medical Restraint Goal: Remains free of injury from restraints (Restraint for Interference with Necktie Maker) Description: INTERVENTIONS: 1. Identify and document the criteria for restraint 2. Determine that other, less restrictive measures have been tried or would not be effective beforeapplying the restraint 3. Evaluate the patient's condition at the time of restraint application and continue to monitor patient's condition 4. Inform patient/family regarding the reason for restraint 5. Q2H: Monitor safety checks including skin, circulation, sensory,respiratory, psychosocial status, comfort, nutrition and hydration 6. Ensure safety/first aid measures are in place (i.e. Quick release, suction, crash cart, etc.) Outcome: Progressing Goal: Free from restraint(s) (Restraint for Interference with Necktie Maker) Description: INTERVENTIONS: 1. Q2H and PRN: Assess and document the continuing need for restraints 2. Q24H: Continued use of restraint requires LIP to perform face to face examination and written order (ICU restraint orders are not reviewed Q24H only at the time of initiation) 3. Identify and implement measures to help patient regain control Outcome: Progressing Problem: Lack of Knowledge: Goal: Risk factors for ineffective tissue perfusion will decrease Outcome: Progressing Goal: Knowledge of disease or condition will improve Outcome: Progressing Goal: Ability to identify and develop effective coping behavior will improve Outcome: Progressing Problem: Health Behavior: Goal: Identification of resources available to assist in meeting health care needs will improve Outcome: Progressing Problem: Physical Regulation: Goal: Ability to maintain clinical measurements within normal limits will improve Outcome: Progressing Goal: Will regain or maintain usual level of consciousness Outcome: Progressing Problem: Respiratory: Goal: Ability to maintain adequate ventilation will improve Outcome: Progressing Problem: Self-Care: Goal: Ability to perform activities of daily living will improve Outcome: Progressing Problem: Tissue Perfusion: Goal: Signs of adequate cerebral perfusion will increase Outcome: Progressing Problem: Lack of Knowledge: Goal: Knowledge on safety and abstaining from self-injurious behavior will increase Outcome: Progressing Problem: Lack of Knowledge: Goal: Knowledge of restraints will improve Description: INTERVENTIONS: 1. Educate patient/caregiver on restraints Outcome: Progressing Problem: Lack of Knowledge: Goal: Ability to state ways to decrease the risk of falls will improve Outcome: Progressing Problem: Safety: Goal: Will remain free from falls Outcome: Progressing Goal: Will remain free from injury from falls Outcome: Progressing Goal: Will remain free from falls and injury in home environment Outcome: Progressing Goals: Clinical Goals for the Shift: NC q4h; TTF; OOBTC; possible MRI; Manage pain/comfort * Plan of Care - Emerita Boo RN - 06/27/2021 9:38 AM CDT Problem: Nutritional: Goal: Ability to maintain a balanced intake and output will improve Outcome: Progressing Problem: Skin Integrity: Goal: Ability to demonstrate warm and dry skin will improve Outcome: Progressing Goal: Circulation will improve to fullest extent possible Outcome: Progressing Problem: Safety - Medical Restraint Goal: Remains free of injury from restraints (Restraint for Interference with Necktie Maker) Description: INTERVENTIONS: 1. Identify and document the criteria for restraint 2. Determine that other, less restrictive measures have been tried or would not be effective beforeapplying the restraint 3. Evaluate the patient's condition at the time of restraint application and continue to monitor patient's condition 4. Inform patient/family regarding the reason for restraint 5. Q2H: Monitor safety checks including skin, circulation, sensory,respiratory, psychosocial status, comfort, nutrition and hydration 6. Ensure safety/first aid measures are in place (i.e. Quick release, suction, crash cart, etc.) Outcome: Progressing Problem: Physical Regulation: Goal: Ability to maintain clinical measurements within normal limits will improve Outcome: Progressing Goal: Will regain or maintain usual level of consciousness Outcome: Progressing Problem: Respiratory: Goal: Ability to maintain adequate ventilation will improve Outcome: Progressing Problem: Tissue Perfusion: Goal: Signs of adequate cerebral perfusion will increase Outcome: Progressing Problem: Safety: Goal: Will remain free from falls Outcome: Progressing Goal: Will remain free from injury from falls Outcome: Progressing Goals: Clinical Goals for the Shift: NC q4h; TTF; OOBTC; possible MRI; Manage pain/comfort * Plan of Care - Grace Delacruz RRT - 06/27/2021 9:05 AM CDT Patient problems but not limited to Acute Traumatic Brain Injury with Subarachnoid Hemorrhage and Intraventricular Hemorrhage, Acute Encephalopathy S/P fall. Hx ETOH/Tobaccoo use; suspected COPD, CHF. Of note patient is significantly [place] and Blind, minimally cooperative. Per Neuro team, CPT and Cough assist were decreased to BID yesterday and will discuss why we are using 2 bronchial hygiene therapies during rounds. Patient does not tolerate cough assist. Last CXR 06/15 Bronchial Hygiene assessment score 12 Continue RCS as ordered * Plan of Care - Bryson Biggs RRT - 06/26/2021 5:31 PM CDT Jania Redman is a 71 y.o. male wIth a SAH Present on Admission: None Social History Tobacco Use Smoking Status Current Every Day Smoker ??? Packs/day: 1.00 ??? Types: Cigarettes ??? Start date: 1965 Smokeless Tobacco Never Used THERAPY: Pt on RA. Vest CPT and cough assist ordered. Last CXR was on 06/15 PLAN: Order a CXR * Plan of Care - Emerita Boo RN - 06/26/2021 7:34 AM CDT Problem: Skin Integrity: Goal: Risk for impaired skin integrity will decrease Outcome: Progressing Goal: Ability to demonstrate warm and dry skin will improve Outcome: Progressing Goal: Circulation will improve to fullest extent possible Outcome: Progressing Problem: Safety - Medical Restraint Goal: Remains free of injury from restraints (Restraint for Interference with Necktie Maker) Description: INTERVENTIONS: 1. Identify and document the criteria for restraint 2. Determine that other, less restrictive measures have been tried or would not be effective beforeapplying the restraint 3. Evaluate the patient's condition at the time of restraint application and continue to monitor patient's condition 4. Inform patient/family regarding the reason for restraint 5. Q2H: Monitor safety checks including skin, circulation, sensory,respiratory, psychosocial status, comfort, nutrition and hydration 6. Ensure safety/first aid measures are in place (i.e. Quick release, suction, crash cart, etc.) Outcome: Progressing Problem: Lack of Knowledge: Goal: Risk factors for ineffective tissue perfusion will decrease Outcome: Progressing Problem: Physical Regulation: Goal: Ability to maintain clinical measurements within normal limits will improve Outcome: Progressing Problem: Respiratory: Goal: Ability to maintain adequate ventilation will improve Outcome: Progressing Problem: Tissue Perfusion: Goal: Signs of adequate cerebral perfusion will increase Outcome: Progressing Problem: Safety: Goal: Will remain free from falls Outcome: Progressing Goal: Will remain free from injury from falls Outcome: Progressing Goals: Clinical Goals for the Shift: NC q4h; OOBTC; manage pain/comfort * Plan of Care - Kevin Izquierdo RRT - 06/26/2021 2:19 AM CDT Patient is currently ordered on VEST therapy. Patient tolerated without issue.. Plan - Continue treatment as ordered Patient ordered on Cough Assist. Patient tolerated the treatment pooly. Patient's bronchial hygienerisk score is 16. Plan - Continue treatment as ordered. * Plan of Care - Girma Owen RN - 06/25/2021 9:27 PM CDT Clinical Goals for the Shift: q4 NC/sleep hygiege [id number]. Q1 VS, labs, comfort, restraint safety Summary: Neuro exam unchanged. Sleep hygiene [id number]. VSS. Labs reviewed. Restraints checked q2h.Removed face tent at 6am per NCC MD. Will trial without it this morning. Problem: Health Behavior: Goal: Understanding of discharge [...] Outcome: Progressing Problem: Lack of Knowledge: Goal: Knowledge of restraints will improve Description: INTERVENTIONS: 1. Educate patient/caregiver on restraints Outcome: Progressing Problem: Safety - Medical Restraint Goal: Remains free of injury from restraints (Restraint for Interference with Necktie Maker) Description: INTERVENTIONS: 1. Identify and document the criteria for restraint 2. Determine that other, less restrictive measures have been tried or would not be effective beforeapplying the restraint 3. Evaluate the patient's condition at the time of restraint application and continue to monitor patient's condition 4. Inform patient/family regarding the reason for restraint 5. Q2H: Monitor safety checks including skin, circulation, sensory,respiratory, psychosocial status, comfort, nutrition and hydration 6. Ensure safety/first aid measures are in place (i.e. Quick release, suction, crash cart, etc.) Outcome: Progressing Goal: Free from restraint(s) (Restraint for Interference with Necktie Maker) Description: INTERVENTIONS: 1. Q2H and PRN: Assess and document the continuing need for restraints 2. Q24H: Continued use of restraint requires LIP to perform face to face examination and written order (ICU restraint orders are not reviewed Q24H only at the time of initiation) 3. Identify and implement measures to help patient regain control Outcome: Progressing Problem: Lack of Knowledge: Goal: Risk factors for ineffective tissue perfusion will decrease Outcome: Progressing Goal: Knowledge of disease or condition will improve Outcome: Progressing Goal: Ability to identify and develop effective coping behavior will improve Outcome: Progressing Problem: Health Behavior: Goal: Identification of resources available to assist in meeting health care needs will improve Outcome: Progressing Problem: Physical Regulation: Goal: Ability to maintain clinical measurements within normal limits will improve Outcome: Progressing Goal: Will regain or maintain usual level of consciousness Outcome: Progressing Problem: Respiratory: Goal: Ability to maintain adequate ventilation will improve Outcome: Progressing Problem: Self-Care: Goal: Ability to perform activities of daily living will improve Outcome: Progressing Problem: Tissue Perfusion: Goal: Signs of adequate cerebral perfusion will increase Outcome: Progressing Problem: Lack of Knowledge: Goal: Knowledge on safety and abstaining from self-injurious behavior will increase Outcome: Progressing Problem: Lack of Knowledge: Goal: Knowledge of restraints will improve Description: INTERVENTIONS: 1. Educate patient/caregiver on restraints Outcome: Progressing Problem: Lack of Knowledge: Goal: Ability to state ways to decrease the risk of falls will improve Outcome: Progressing Problem: Safety: Goal: Will remain free from falls Outcome: Progressing Goal: Will remain free from injury from falls Outcome: Progressing Goal: Will remain free from falls and injury in home environment Outcome: Progressing * Plan of Care - Chris Knapp, PhD - 06/25/2021 6:36 PM CDT Vest and Cough assist tx were decreased to BID per ordered. * Plan of Care - Lenka De Santiago RN - 06/25/2021 11:00 AM CDT Goals: Clinical Goals for the Shift: Neuro checks Q4, VS Q1H, OOB to chair Summary: Problem: Health Behavior: Goal: Understanding of discharge needs will improve Outcome: Progressing Problem: Activity: Goal: Mobility will improve Outcome: Progressing Problem: Lack of Knowledge: Goal: Understanding of ways to prevent future skin breakdown will improve Outcome: Progressing Problem: Nutritional: Goal: [...] Outcome: Progressing Problem: Lack of Knowledge: Goal: Knowledge of restraints will improve Description: INTERVENTIONS: 1. Educate patient/caregiver on restraints Outcome: Progressing Problem: Safety - Medical Restraint Goal: Remains free of injury from restraints (Restraint for Interference with Necktie Maker) Description: INTERVENTIONS: 1. Identify and document the criteria for restraint 2. Determine that other, less restrictive measures have been tried or would not be effective beforeapplying the restraint 3. Evaluate the patient's condition at the time of restraint application and continue to monitor patient's condition 4. Inform patient/family regarding the reason for restraint 5. Q2H: Monitor safety checks including skin, circulation, sensory,respiratory, psychosocial status, comfort, nutrition and hydration 6. Ensure safety/first aid measures are in place (i.e. Quick release, suction, crash cart, etc.) Outcome: Progressing Problem: Lack of Knowledge: Goal: Risk factors for ineffective tissue perfusion will decrease Outcome: Progressing Goal: Knowledge of disease or condition will improve Outcome: Progressing Goal: Ability to identify and develop effective coping behavior will improve Outcome: Progressing Problem: Health Behavior: Goal: Identification of resources available to assist in meeting health care needs will improve Outcome: Progressing Problem: Physical Regulation: Goal: Ability to maintain clinical measurements within normal limits will improve Outcome: Progressing Goal: Will regain or maintain usual level of consciousness Outcome: Progressing Problem: Respiratory: Goal: Ability to maintain adequate ventilation will improve Outcome: Progressing Problem: Self-Care: Goal: Ability to perform activities of daily living will improve Outcome: Progressing Problem: Tissue Perfusion: Goal: Signs of adequate cerebral perfusion will increase Outcome: Progressing Problem: Lack of Knowledge: Goal: Knowledge on safety and abstaining from self-injurious behavior will increase Outcome: Progressing Problem: Lack of Knowledge: Goal: Knowledge of restraints will improve Description: INTERVENTIONS: 1. Educate patient/caregiver on restraints Outcome: Progressing Problem: Lack of Knowledge: Goal: Ability to state ways to decrease the risk of falls will improve Outcome: Progressing Problem: Safety: Goal: Will remain free from falls Outcome: Progressing Goal: Will remain free from injury from falls Outcome: Progressing Goal: Will remain free from falls and injury in home environment Outcome: Progressing * Plan of Care - Ravindra Cardenas RRT - 06/25/2021 6:45 AM CDT PSV all night as tolerated. No complications * Plan of Care - Girma Owen RN - 06/24/2021 9:25 PM CDT Goals: Clinical Goals for the Shift: q4 NC, VSS q1, labs, MRI? Summary: VSS, face tent 30% 10L satting >88%. Sleep hygiene, Labs reviewed, pending MRI Problem: Health Behavior: Goal: Understanding of discharge [...] Outcome: Progressing Problem: Lack of Knowledge: Goal: Knowledge of restraints will improve Description: INTERVENTIONS: 1. Educate patient/caregiver on restraints Outcome: Progressing Problem: Safety - Medical Restraint Goal: Remains free of injury from restraints (Restraint for Interference with Necktie Maker) Description: INTERVENTIONS: 1. Identify and document the criteria for restraint 2. Determine that other, less restrictive measures have been tried or would not be effective beforeapplying the restraint 3. Evaluate the patient's condition at the time of restraint application and continue to monitor patient's condition 4. Inform patient/family regarding the reason for restraint 5. Q2H: Monitor safety checks including skin, circulation, sensory,respiratory, psychosocial status, comfort, nutrition and hydration 6. Ensure safety/first aid measures are in place (i.e. Quick release, suction, crash cart, etc.) Outcome: Progressing Goal: Free from restraint(s) (Restraint for Interference with Necktie Maker) Description: INTERVENTIONS: 1. Q2H and PRN: Assess and document the continuing need for restraints 2. Q24H: Continued use of restraint requires LIP to perform face to face examination and written order (ICU restraint orders are not reviewed Q24H only at the time of initiation) 3. Identify and implement measures to help patient regain control Outcome: Progressing Problem: Lack of Knowledge: Goal: Risk factors for ineffective tissue perfusion will decrease Outcome: Progressing Goal: Knowledge of disease or condition will improve Outcome: Progressing Goal: Ability to identify and develop effective coping behavior will improve Outcome: Progressing Problem: Health Behavior: Goal: Identification of resources available to assist in meeting health care needs will improve Outcome: Progressing Problem: Physical Regulation: Goal: Ability to maintain clinical measurements within normal limits will improve Outcome: Progressing Goal: Will regain or maintain usual level of consciousness Outcome: Progressing Problem: Respiratory: Goal: Ability to maintain adequate ventilation will improve Outcome: Progressing Problem: Self-Care: Goal: Ability to perform activities of daily living will improve Outcome: Progressing Problem: Tissue Perfusion: Goal: Signs of adequate cerebral perfusion will increase Outcome: Progressing Problem: Lack of Knowledge: Goal: Knowledge on safety and abstaining from self-injurious behavior will increase Outcome: Progressing Problem: Lack of Knowledge: Goal: Knowledge of restraints will improve Description: INTERVENTIONS: 1. Educate patient/caregiver on restraints Outcome: Progressing Problem: Lack of Knowledge: Goal: Ability to state ways to decrease the risk of falls will improve Outcome: Progressing Problem: Safety: Goal: Will remain free from falls Outcome: Progressing Goal: Will remain free from injury from falls Outcome: Progressing Goal: Will remain free from falls and injury in home environment Outcome: Progressing * Plan of Care - Ravindra Cardenas RRT - 06/24/2021 8:08 PM CDT Pt is on 40% FT . Pt given Cough assist TID followed by CPT TID with the vest. Pt tolerated cpt well and did not tolerate cough assist. RCS to monitor and treat. * Plan of Care - Chris Knapp, PhD - 06/24/2021 6:42 PM CDT Resp care plan no changes * Plan of Care - Lenka De Santiago RN - 06/24/2021 2:37 PM CDT Goals: Clinical Goals for the Shift: Neuro checks Q4, VS Q1H, OOB to chair Summary: Problem: Activity: Goal: Mobility will improve Outcome: Progressing Problem: Lack of Knowledge: Goal: Understanding of ways to prevent future skin breakdown will improve Outcome: Progressing Problem: Nutritional: Goal: Ability to maintain a balanced intake and output will improve Outcome: Progressing Problem: Skin Integrity: Goal: Risk for impaired skin integrity will decrease Outcome: Progressing Goal: Ability to demonstrate warm and dry skin will improve Outcome: Progressing Goal: Circulation will improve to fullest extent possible Outcome: Progressing Problem: Lack of Knowledge: Goal: Knowledge of restraints will improve Description: INTERVENTIONS: 1. Educate patient/caregiver on restraints Outcome: Progressing Problem: Safety - Medical Restraint Goal: Remains free of injury from restraints (Restraint for Interference with Necktie Maker) Description: INTERVENTIONS: 1. Identify and document the criteria for restraint 2. Determine that other, less restrictive measures have been tried or would not be effective beforeapplying the restraint 3. Evaluate the patient's condition at the time of restraint application and continue to monitor patient's condition 4. Inform patient/family regarding the reason for restraint 5. Q2H: Monitor safety checks including skin, circulation, sensory,respiratory, psychosocial status, comfort, nutrition and hydration 6. Ensure safety/first aid measures are in place (i.e. Quick release, suction, crash cart, etc.) Outcome: Progressing Problem: Lack of Knowledge: Goal: Risk factors for ineffective tissue perfusion will decrease Outcome: Progressing Goal: Ability to identify and develop effective coping behavior will improve Outcome: Progressing Problem: Health Behavior: Goal: Identification of resources available to assist in meeting health care needs will improve Outcome: Progressing Problem: Physical Regulation: Goal: Will regain or maintain usual level of consciousness Outcome: Progressing Problem: Respiratory: Goal: Ability to maintain adequate ventilation will improve Outcome: Progressing Problem: Tissue Perfusion: Goal: Signs of adequate cerebral perfusion will increase Outcome: Progressing Problem: Lack of Knowledge: Goal: Knowledge on safety and abstaining from self-injurious behavior will increase Outcome: Progressing Problem: Lack of Knowledge: Goal: Knowledge of restraints will improve Description: INTERVENTIONS: 1. Educate patient/caregiver on restraints Outcome: Progressing Problem: Lack of Knowledge: Goal: Ability to state ways to decrease the risk of falls will improve Outcome: Progressing Problem: Safety: Goal: Will remain free from falls Outcome: Progressing Goal: Will remain free from injury from falls Outcome: Progressing Goal: Will remain free from falls and injury in home environment Outcome: Progressing * Plan of Care - Dmitry Pedroza, [employer] - 06/23/2021 10:11 PM CDT Pt is on 40% FT . Pt given Cough assist TID followed by CPT TID with the vest. Pt tolerated well with small amount of oral secretions . RCS to monitor and treat. * Plan of Care - Jazzy Clarke LCSW - 06/23/2021 7:32 PM CDT Patient continues to have bilateral soft wrist restraints and bilateral mittens. half-way facility referrals will be sent when restraints are discontinued. * Plan of Care - Chris Knapp, PhD - 06/23/2021 6:35 PM CDT CPT vest and cough assist tolerated OK Small amount of humphries/white thick secretion via deep oral suctioning. Frequency decreased to TID per ordered by MD. * Plan of Care - Jazzy Clarke LCSW - 06/22/2021 4:38 PM CDT SW continues to follow for discharge planning. Patient still has bilateral soft wrist restraints and bilateral mittens half-way facility referrals will be sent when patient no longer has restraints. * Plan of Care - Araceli Swan, BUNNY - 06/22/2021 10:55 AM CDT Pt stable with O2 support via face tent 40%. Tolerates vest CPT well, tolerates airway clearance via Cough assist fairly with poor cooperation. RT to cont to monitor. * Provider Query - Kyler Tavarez - 06/21/2021 1:37 PM CDT Specify a diagnosis that accurately reflects the lab findings, and document in the medical record and on the form below. __x_Hypernatremia ___Abnormal laboratory findings, inconclusive diagnosis ___Clinically insignificant abnormal laboratory findings ___Other, specify below ___Clinically unable to determine Additional Provider Response: As above Clinical Indicators/Treatments: Ref. Range 06/16/2021 09:02 06/16/2021 21:35 Sodium Latest Ref Range: 135 - 145 mmol/L 147 (H) 149 (H) Lab monitoring Use of terms such as likely, suspected, possible, or probable (associated with a specific diagnosisthat is being evaluated, monitored, or treated as if it exists) are acceptable and can be coded in the inpatient setting when documented at the time of discharge. This documentation will become part of the patient???s medical record. Sincerely, .ALVARO Dasilva, RN, CCDS Clinical Sueding Machine Operator [email or web address] * Plan of Care - Karlee Shi RN - 06/21/2021 11:28 AM CDT Goals: Clinical Goals for the Shift: Neuro q4, vss q1, OOB to chair, encourage cough, monitor secretions, COTT[employer]ER to eval swallow, monitor I&O, encourage participation in ADL's Summary: Problem: Activity: Goal: Mobility will improve Outcome: [...] to fullest extent possible Outcome: Progressing Problem: Safety - Medical Restraint Goal: Remains free of injury from restraints (Restraint for Interference with Necktie Maker) Description: INTERVENTIONS: 1. Identify and document the criteria for restraint 2. Determine that other, less restrictive measures have been tried or would not be effective beforeapplying the restraint 3. Evaluate the patient's condition at the time of restraint application and continue to monitor patient's condition 4. Inform patient/family regarding the reason for restraint 5. Q2H: Monitor safety checks including skin, circulation, sensory,respiratory, psychosocial status, comfort, nutrition and hydration 6. Ensure safety/first aid measures are in place (i.e. Quick release, suction, crash cart, etc.) Outcome: Progressing Problem: Lack of Knowledge: Goal: Risk factors for ineffective tissue perfusion will decrease Outcome: Progressing Problem: Health Behavior: Goal: Identification of resources available to assist in meeting health care needs will improve Outcome: Progressing Problem: Physical Regulation: Goal: Ability to maintain clinical measurements within normal limits will improve Outcome: Progressing Goal: Will regain or maintain usual level of consciousness Outcome: Progressing Problem: Respiratory: Goal: Ability to maintain adequate ventilation will improve Outcome: Progressing Problem: Tissue Perfusion: Goal: Signs of adequate cerebral perfusion will increase Outcome: Progressing Problem: Safety: Goal: Will remain free from falls Outcome: Progressing Goal: Will remain free from injury from falls Outcome: Progressing Problem: Health Behavior: Goal: Understanding of discharge needs will improve Outcome: Not Progressing Problem: Lack of Knowledge: Goal: Understanding of ways to prevent future skin breakdown will improve Outcome: Not Progressing Goal: Ability to identify appropriate dietary choices will improve Outcome: Not Progressing Problem: Lack of Knowledge: Goal: Knowledge of restraints will improve Description: INTERVENTIONS: 1. Educate patient/caregiver on restraints Outcome: Not Progressing Problem: Safety - Medical Restraint Goal: Free from restraint(s) (Restraint for Interference with Necktie Maker) Description: INTERVENTIONS: 1. Q2H and PRN: Assess and document the continuing need for restraints 2. Q24H: Continued use of restraint requires LIP to perform face to face examination and written order (ICU restraint orders are not reviewed Q24H only at the time of initiation) 3. Identify and implement measures to help patient regain control Outcome: Not Progressing Problem: Lack of Knowledge: Goal: Knowledge of disease or condition will improve Outcome: Not Progressing Goal: Ability to identify and develop effective coping behavior will improve Outcome: Not Progressing Problem: Self-Care: Goal: Ability to perform activities of daily living will improve Outcome: Not Progressing Problem: Lack of Knowledge: Goal: Knowledge on safety and abstaining from self-injurious behavior will increase Outcome: Not Progressing Problem: Lack of Knowledge: Goal: Knowledge of restraints will improve Description: INTERVENTIONS: 1. Educate patient/caregiver on restraints Outcome: Not Progressing Problem: Lack of Knowledge: Goal: Ability to state ways to decrease the risk of falls will improve Outcome: Not Progressing Problem: Safety: Goal: Will remain free from falls and injury in home environment Outcome: Not Progressing * Plan of Care - Vy Pugh RRT - 06/21/2021 9:31 AM CDT Patient ordered on Cough Assist. Patient tolerated the treatment fairly well. Patient's bronchial hygiene risk score is 16. ?? Patient is also on a face tent at 40% ?? Plan - Continue treatment as ordered * Plan of Care - Kevin Izquierdo RRT - 06/21/2021 2:29 AM CDT Patient ordered on Cough Assist. Patient tolerated the treatment pooly. Patient's bronchial hygienerisk score is 16. Patient is also on a face tent at 40% Plan - Continue treatment as ordered. * Plan of Care - Sharonda Manrique RN - 06/20/2021 9:10 PM CDT Goals: Clinical Goals for the Shift: encourage proper rest; remain pain free; sleep hygiene; strict I/O; keep skin clean and dry Summary: Problem: Activity: Goal: Mobility will improve Outcome: Progressing Problem: Nutritional: Goal: Ability to maintain a balanced intake and output will improve Outcome: Progressing Problem: Skin Integrity: Goal: Risk for impaired skin integrity will decrease Outcome: Progressing Goal: Circulation will improve to fullest extent possible Outcome: Progressing Problem: Safety - Medical Restraint Goal: Remains free of injury from restraints (Restraint for Interference with Necktie Maker) Description: INTERVENTIONS: 1. Identify and document the criteria for restraint 2. Determine that other, less restrictive measures have been tried or would not be effective beforeapplying the restraint 3. Evaluate the patient's condition at the time of restraint application and continue to monitor patient's condition 4. Inform patient/family regarding the reason for restraint 5. Q2H: Monitor safety checks including skin, circulation, sensory,respiratory, psychosocial status, comfort, nutrition and hydration 6. Ensure safety/first aid measures are in place (i.e. Quick release, suction, crash cart, etc.) Outcome: Progressing Problem: Lack of Knowledge: Goal: Risk factors for ineffective tissue perfusion will decrease Outcome: Progressing Problem: Physical Regulation: Goal: Ability to maintain clinical measurements within normal limits will improve Outcome: Progressing Problem: Respiratory: Goal: Ability to maintain adequate ventilation will improve Outcome: Progressing Problem: Tissue Perfusion: Goal: Signs of adequate cerebral perfusion will increase Outcome: Progressing Problem: Safety: Goal: Will remain free from falls Outcome: Progressing Goal: Will remain free from injury from falls Outcome: Progressing * Plan of Care - Hillary De La O RN - 06/20/2021 8:20 PM CDT Goals: Clinical Goals for the Shift: Q4 neuro checks, Q1 VS, comfort measures, monitor I/O, adequate oxygenation, proper oral care, out of bed to chair Summary: Problem: Activity: Goal: Mobility will improve Outcome: Progressing Problem: Nutritional: Goal: Ability to maintain a balanced intake and output will improve Outcome: Progressing Problem: Skin Integrity: Goal: Risk for impaired skin integrity will decrease Outcome: Progressing Goal: Circulation will improve to fullest extent possible Outcome: Progressing Problem: Safety - Medical Restraint Goal: Remains free of injury from restraints (Restraint for Interference with Necktie Maker) Description: INTERVENTIONS: 1. Identify and document the criteria for restraint 2. Determine that other, less restrictive measures have been tried or would not be effective beforeapplying the restraint 3. Evaluate the patient's condition at the time of restraint application and continue to monitor patient's condition 4. Inform patient/family regarding the reason for restraint 5. Q2H: Monitor safety checks including skin, circulation, sensory,respiratory, psychosocial status, comfort, nutrition and hydration 6. Ensure safety/first aid measures are in place (i.e. Quick release, suction, crash cart, etc.) Outcome: Progressing Problem: Lack of Knowledge: Goal: Risk factors for ineffective tissue perfusion will decrease Outcome: Progressing Problem: Physical Regulation: Goal: Ability to maintain clinical measurements within normal limits will improve Outcome: Progressing Goal: Will regain or maintain usual level of consciousness Outcome: Progressing Problem: Respiratory: Goal: Ability to maintain adequate ventilation will improve Outcome: Progressing Problem: Tissue Perfusion: Goal: Signs of adequate cerebral perfusion will increase Outcome: Progressing Problem: Safety: Goal: Will remain free from falls Outcome: Progressing Goal: Will remain free from injury from falls Outcome: Progressing Problem: Health Behavior: Goal: Understanding of discharge needs will improve Outcome: Not Progressing Problem: Lack of Knowledge: Goal: Understanding of ways to prevent future skin breakdown will improve Outcome: Not Progressing Goal: Ability to identify appropriate dietary choices will improve Outcome: Not Progressing Problem: Nutritional: Goal: Dietary intake will improve Outcome: Not Progressing Problem: Skin Integrity: Goal: Ability to demonstrate warm and dry skin will improve Outcome: Not Progressing Problem: Lack of Knowledge: Goal: Knowledge of restraints will improve Description: INTERVENTIONS: 1. Educate patient/caregiver on restraints Outcome: Not Progressing Problem: Safety - Medical Restraint Goal: Free from restraint(s) (Restraint for Interference with Necktie Maker) Description: INTERVENTIONS: 1. Q2H and PRN: Assess and document the continuing need for restraints 2. Q24H: Continued use of restraint requires LIP to perform face to face examination and written order (ICU restraint orders are not reviewed Q24H only at the time of initiation) 3. Identify and implement measures to help patient regain control Outcome: Not Progressing Problem: Lack of Knowledge: Goal: Knowledge of disease or condition will improve Outcome: Not Progressing Goal: Ability to identify and develop effective coping behavior will improve Outcome: Not Progressing Problem: Health Behavior: Goal: Identification of resources available to assist in meeting health care needs will improve Outcome: Not Progressing Problem: Self-Care: Goal: Ability to perform activities of daily living will improve Outcome: Not Progressing Problem: Lack of Knowledge: Goal: Knowledge on safety and abstaining from self-injurious behavior will increase Outcome: Not Progressing Problem: Lack of Knowledge: Goal: Knowledge of restraints will improve Description: INTERVENTIONS: 1. Educate patient/caregiver on restraints Outcome: Not Progressing Problem: Lack of Knowledge: Goal: Ability to state ways to decrease the risk of falls will improve Outcome: Not Progressing Problem: Safety: Goal: Will remain free from falls and injury in home environment Outcome: Not Progressing * Plan of Care - Chris Knapp, PhD - 06/20/2021 6:03 PM CDT No changes of the care plan * Plan of Care - Hillary De La O RN - 06/19/2021 7:51 PM CDT Goals: Clinical Goals for the Shift: Q1 VS, Q4 neuro, comfort measures, monitor I/O, maintain adequate oxygenation, oral care Q2, comfort measures, promote safety Summary: Problem: Activity: Goal: Mobility will improve 06/19/20211951 by Hillary De La O RN Outcome: Progressing 06/19/20211949 by Hillary De La O RN Outcome: Progressing Problem: Nutritional: Goal: Dietary intake will improve 06/19/20211951 by Hillary De La O RN Outcome: Progressing 06/19/20211949 by Hillary De La O RN Outcome: Progressing Goal: Ability to maintain a balanced intake and output will improve 06/19/20211951 by Hillary De La O RN Outcome: Progressing 06/19/20211949 by Hillary De La O RN Outcome: Progressing Problem: Skin Integrity: Goal: Risk for impaired skin integrity will decrease 06/19/20211951 by Hillary De La O RN Outcome: Progressing 06/19/20211949 by Hillary De La O RN Outcome: Not Progressing Goal: Ability to demonstrate warm and dry skin will improve 06/19/20211951 by Hillary De La O RN Outcome: Progressing 06/19/20211949 by Hillary De La O RN Outcome: Progressing Goal: Circulation will improve to fullest extent possible 06/19/20211951 by Hillary De La O RN Outcome: Progressing 06/19/20211949 by Hillary De La O RN Outcome: Not Progressing Problem: Safety - Medical Restraint Goal: Remains free of injury from restraints (Restraint for Interference with Necktie Maker) Description: INTERVENTIONS: 1. Identify and document the criteria for restraint 2. Determine that other, less restrictive measures have been tried or would not be effective beforeapplying the restraint 3. Evaluate the patient's condition at the time of restraint application and continue to monitor patient's condition 4. Inform patient/family regarding the reason for restraint 5. Q2H: Monitor safety checks including skin, circulation, sensory,respiratory, psychosocial status, comfort, nutrition and hydration 6. Ensure safety/first aid measures are in place (i.e. Quick release, suction, crash cart, etc.) 06/19/20211951 by Hillary De La O RN Outcome: Progressing 06/19/20211949 by Hillary De La O RN Outcome: Progressing Problem: Lack of Knowledge: Goal: Risk factors for ineffective tissue perfusion will decrease 06/19/20211951 by Hillary De La O RN Outcome: Progressing 06/19/20211949 by Hillary De La O RN Outcome: Not Progressing Problem: Physical Regulation: Goal: Ability to maintain clinical measurements within normal limits will improve 06/19/20211951 by Hillary De La O RN Outcome: Progressing 06/19/20211949 by Hillary De La O RN Outcome: Progressing Goal: Will regain or maintain usual level of consciousness 06/19/20211951 by Hillary De La O RN Outcome: Progressing 06/19/20211949 by Hillary De La O RN Outcome: Not Progressing Problem: Respiratory: Goal: Ability to maintain adequate ventilation will improve 06/19/20211951 by Hillary De La O RN Outcome: Progressing 06/19/2021 1950 by Hillary De La O RN Outcome: Progressing Problem: Tissue Perfusion: Goal: Signs of adequate cerebral perfusion will increase 06/19/20211951 by Hillary De La O RN Outcome: Progressing 06/19/2021 1950 by Hillary De La O RN Outcome: Not Progressing Problem: Safety: Goal: Will remain free from falls 06/19/20211951 by Hillary De La O RN Outcome: Progressing 06/19/2021 1950 by Hillary De La O RN Outcome: Progressing Goal: Will remain free from injury from falls 06/19/20211951 by Hillary De La O RN Outcome: Progressing 06/19/20211949 by Hillary De La O RN Outcome: Progressing Problem: Activity: Goal: Mobility will improve 06/19/20211951 by Hillary De La O RN Outcome: Progressing 06/19/20211949 by Hillary De La O RN Outcome: Progressing Problem: Nutritional: Goal: Dietary intake will improve 06/19/20211951 by Hillary De La O RN Outcome: Progressing 06/19/20211949 by Hillary De La O RN Outcome: Progressing Goal: Ability to maintain a balanced intake and output will improve 06/19/20211951 by Hillary De La O RN Outcome: Progressing 06/19/20211949 by Hillary De La O RN Outcome: Progressing Problem: Skin Integrity: Goal: Risk for impaired skin integrity will decrease 06/19/20211951 by Hillary De La O RN Outcome: Progressing 06/19/20211949 by Hillary De La O RN Outcome: Not Progressing Goal: Ability to demonstrate warm and dry skin will improve 06/19/20211951 by Hillary De La O RN Outcome: Progressing 06/19/20211949 by Hillary De La O RN Outcome: Progressing Goal: Circulation will improve to fullest extent possible 06/19/20211951 by Hillary De La O RN Outcome: Progressing 06/19/20211949 by Hillary De La O RN Outcome: Not Progressing Problem: Safety - Medical Restraint Goal: Remains free of injury from restraints (Restraint for Interference with Necktie Maker) Description: INTERVENTIONS: 1. Identify and document the criteria for restraint 2. Determine that other, less restrictive measures have been tried or would not be effective beforeapplying the restraint 3. Evaluate the patient's condition at the time of restraint application and continue to monitor patient's condition 4. Inform patient/family regarding the reason for restraint 5. Q2H: Monitor safety checks including skin, circulation, sensory,respiratory, psychosocial status, comfort, nutrition and hydration 6. Ensure safety/first aid measures are in place (i.e. Quick release, suction, crash cart, etc.) 06/19/20211951 by Hillary De La O RN Outcome: Progressing 06/19/20211949 by Hillary De La O RN Outcome: Progressing Problem: Lack of Knowledge: Goal: Risk factors for ineffective tissue perfusion will decrease 06/19/20211951 by Hillary De La O RN Outcome: Progressing 06/19/20211949 by Hillary De La O RN Outcome: Not Progressing Problem: Physical Regulation: Goal: Ability to maintain clinical measurements within normal limits will improve 06/19/20211951 by Hillary De La O RN Outcome: Progressing 06/19/20211949 by Hillary De La O RN Outcome: Progressing Goal: Will regain or maintain usual level of consciousness 06/19/20211951 by Hillary De La O RN Outcome: Progressing 06/19/20211949 by Hillary De La O RN Outcome: Not Progressing Problem: Respiratory: Goal: Ability to maintain adequate ventilation will improve 06/19/20211951 by Hillary De La O RN Outcome: Progressing 06/19/20211949 by Hillary De La O RN Outcome: Progressing Problem: Tissue Perfusion: Goal: Signs of adequate cerebral perfusion will increase 06/19/20211951 by Hillary De La O RN Outcome: Progressing 06/19/20211949 by Hillary De La O RN Outcome: Not Progressing Problem: Safety: Goal: Will remain free from falls 06/19/20211951 by Hillary De La O RN Outcome: Progressing 06/19/20211949 by Hillary De La O RN Outcome: Progressing Goal: Will remain free from injury from falls 06/19/20211951 by Hillary De La O RN Outcome: Progressing 06/19/20211949 by Hillary De La O RN Outcome: Progressing Problem: Health Behavior: Goal: Understanding of discharge needs will improve 06/19/20211951 by Hillary De La O RN Outcome: Not Progressing 06/19/20211949 by Hillary De La O RN Outcome: Not Progressing Problem: Lack of Knowledge: Goal: Understanding of ways to prevent future skin breakdown will improve 06/19/20211951 by Hillary De La O RN Outcome: Not Progressing 06/19/20211949 by Hillary De La O RN Outcome: Not Progressing Goal: Ability to identify appropriate dietary choices will improve 06/19/20211951 by Hillary De La O RN Outcome: Not Progressing 06/19/20211949 by Hillary De La O RN Outcome: Not Progressing Problem: Lack of Knowledge: Goal: Knowledge of restraints will improve Description: INTERVENTIONS: 1. Educate patient/caregiver on restraints 06/19/20211951 by Hillary De La O RN Outcome: Not Progressing 06/19/20211949 by Hillary De La O RN Outcome: Not Progressing Problem: Safety - Medical Restraint Goal: Free from restraint(s) (Restraint for Interference with Necktie Maker) Description: INTERVENTIONS: 1. Q2H and PRN: Assess and document the continuing need for restraints 2. Q24H: Continued use of restraint requires LIP to perform face to face examination and written order (ICU restraint orders are not reviewed Q24H only at the time of initiation) 3. Identify and implement measures to help patient regain control 06/19/20211951 by Hillary De La O RN Outcome: Not Progressing 06/19/20211949 by Hillary De La O RN Outcome: Not Progressing Problem: Lack of Knowledge: Goal: Knowledge of disease or condition will improve 06/19/20211951 by Hillary De La O RN Outcome: Not Progressing 06/19/20211949 by Hillary De La O RN Outcome: Not Progressing Goal: Ability to identify and develop effective coping behavior will improve 06/19/20211951 by Hillary De La O RN Outcome: Not Progressing 06/19/20211949 by Hillary De La O RN Outcome: Not Progressing Problem: Health Behavior: Goal: Identification of resources available to assist in meeting health care needs will improve 06/19/20211951 by Hillary De La O RN Outcome: Not Progressing 06/19/20211949 by Hillary De La O RN Outcome: Not Progressing Problem: Self-Care: Goal: Ability to perform activities of daily living will improve 06/19/20211951 by Hillary De La O RN Outcome: Not Progressing 06/19/20211949 by Hillary De La O RN Outcome: Not Progressing Problem: Lack of Knowledge: Goal: Knowledge on safety and abstaining from self-injurious behavior will increase 06/19/20211951 by Hillary De La O RN Outcome: Not Progressing 06/19/20211949 by Hillary De La O RN Outcome: Not Progressing Problem: Lack of Knowledge: Goal: Knowledge of restraints will improve Description: INTERVENTIONS: 1. Educate patient/caregiver on restraints 06/19/20211951 by Hillary De La O RN Outcome: Not Progressing 06/19/20211949 by Hillary De La O RN Outcome: Not Progressing Problem: Lack of Knowledge: Goal: Ability to state ways to decrease the risk of falls will improve 06/19/20211951 by Hillary De La O RN Outcome: Not Progressing 06/19/20211949 by Hillary De La O RN Outcome: Not Progressing Problem: Safety: Goal: Will remain free from falls and injury in home environment 06/19/20211951 by Hillary De La O RN Outcome: Not Progressing 06/19/20211949 by Hillary De La O RN Outcome: Not Progressing Problem: Tissue Perfusion: Goal: Ability to maintain intracranial pressure will improve 06/19/20211951 by Hillary De La O RN Outcome: Completed 06/19/20211949 by Hillary De La O RN Outcome: Not Progressing * Plan of Care - Chris Knapp, PhD - 06/19/2021 7:23 PM CDT Pt was on 40% FT. Tolerated the cough assist tx well. * Plan of Care - Little Hawkins RN - 06/19/2021 3:06 AM CDT Goals: Clinical Goals for the Shift: [id number], [id number], promote comfort, monitor I&O Summary: Problem: Activity: Goal: Mobility will improve Outcome: [...] to fullest extent possible Outcome: Progressing Problem: Safety - Medical Restraint Goal: Remains free of injury from restraints (Restraint for Interference with Necktie Maker) Description: INTERVENTIONS: 1. Identify and document the criteria for restraint 2. Determine that other, less restrictive measures have been tried or would not be effective beforeapplying the restraint 3. Evaluate the patient's condition at the time of restraint application and continue to monitor patient's condition 4. Inform patient/family regarding the reason for restraint 5. Q2H: Monitor safety checks including skin, circulation, sensory,respiratory, psychosocial status, comfort, nutrition and hydration 6. Ensure safety/first aid measures are in place (i.e. Quick release, suction, crash cart, etc.) Outcome: Progressing Problem: Lack of Knowledge: Goal: Risk factors for ineffective tissue perfusion will decrease Outcome: Progressing Problem: Physical Regulation: Goal: Ability to maintain clinical measurements within normal limits will improve Outcome: Progressing Goal: Will regain or maintain usual level of consciousness Outcome: Progressing Problem: Respiratory: Goal: Ability to maintain adequate ventilation will improve Outcome: Progressing Problem: Safety: Goal: Will remain free from falls Outcome: Progressing Goal: Will remain free from injury from falls Outcome: Progressing Problem: Health Behavior: Goal: Understanding of discharge needs will improve Outcome: Not Progressing Problem: Lack of Knowledge: Goal: Understanding of ways to prevent future skin breakdown will improve Outcome: Not Progressing Problem: Lack of Knowledge: Goal: Knowledge of restraints will improve Description: INTERVENTIONS: 1. Educate patient/caregiver on restraints Outcome: Not Progressing Problem: Safety - Medical Restraint Goal: Free from restraint(s) (Restraint for Interference with Necktie Maker) Description: INTERVENTIONS: 1. Q2H and PRN: Assess and document the continuing need for restraints 2. Q24H: Continued use of restraint requires LIP to perform face to face examination and written order (ICU restraint orders are not reviewed Q24H only at the time of initiation) 3. Identify and implement measures to help patient regain control Outcome: Not Progressing Problem: Lack of Knowledge: Goal: Knowledge of disease or condition will improve Outcome: Not Progressing Goal: Ability to identify and develop effective coping behavior will improve Outcome: Not Progressing Problem: Health Behavior: Goal: Identification of resources available to assist in meeting health care needs will improve Outcome: Not Progressing Problem: Self-Care: Goal: Ability to perform activities of daily living will improve Outcome: Not Progressing Problem: Tissue Perfusion: Goal: Signs of adequate cerebral perfusion will increase Outcome: Not Progressing Problem: Lack of Knowledge: Goal: Knowledge on safety and abstaining from self-injurious behavior will increase Outcome: Not Progressing Problem: Lack of Knowledge: Goal: Knowledge of restraints will improve Description: INTERVENTIONS: 1. Educate patient/caregiver on restraints Outcome: Not Progressing Problem: Lack of Knowledge: Goal: Ability to state ways to decrease the risk of falls will improve Outcome: Not Progressing * Plan of Care - Taryn Suarez RN - 06/18/2021 9:38 AM CDT Goals: Clinical Goals for the Shift: [id number], [id number], promote comfort, monitor I&O Summary: Problem: Health Behavior: Goal: Understanding of discharge [...] Outcome: Progressing Problem: Lack of Knowledge: Goal: Knowledge of restraints will improve Description: INTERVENTIONS: 1. Educate patient/caregiver on restraints Outcome: Progressing Problem: Lack of Knowledge: Goal: Risk factors for ineffective tissue perfusion will decrease Outcome: Progressing Goal: Knowledge of disease or condition will improve Outcome: Progressing Goal: Ability to identify and develop effective coping behavior will improve Outcome: Progressing Problem: Health Behavior: Goal: Identification of resources available to assist in meeting health care needs will improve Outcome: Progressing Problem: Physical Regulation: Goal: Ability to maintain clinical measurements within normal limits will improve Outcome: Progressing Goal: Will regain or maintain usual level of consciousness Outcome: Progressing Problem: Respiratory: Goal: Ability to maintain adequate ventilation will improve Outcome: Progressing Problem: Self-Care: Goal: Ability to perform activities of daily living will improve Outcome: Progressing Problem: Tissue Perfusion: Goal: Signs of adequate cerebral perfusion will increase Outcome: Progressing Goal: Ability to maintain intracranial pressure will improve Outcome: Progressing Problem: Lack of Knowledge: Goal: Knowledge on safety and abstaining from self-injurious behavior will increase Outcome: Progressing Problem: Lack of Knowledge: Goal: Knowledge of restraints will improve Description: INTERVENTIONS: 1. Educate patient/caregiver on restraints Outcome: Progressing Problem: Lack of Knowledge: Goal: Ability to state ways to decrease the risk of falls will improve Outcome: Progressing Problem: Safety: Goal: Will remain free from falls Outcome: Progressing Goal: Will remain free from injury from falls Outcome: Progressing Goal: Will remain free from falls and injury in home environment Outcome: Progressing * Plan of Care - Charis Scott RRT - 06/18/2021 1:56 AM CST Impression: Patient is currently on spontaneous ventilation Plan: Wean settings as tolerated N MARKETING ANALYST * Plan of Care - Little Hawkins RN - 06/18/2021 1:39 AM CST Goals: Clinical Goals for the Shift: [id number], [id number], promote comfort, monitor I&O Summary: Problem: Activity: Goal: Mobility will improve Outcome: [...] to fullest extent possible Outcome: Progressing Problem: Safety - Medical Restraint Goal: Remains free of injury from restraints (Restraint for Interference with Necktie Maker) Description: INTERVENTIONS: 1. Identify and document the criteria for restraint 2. Determine that other, less restrictive measures have been tried or would not be effective beforeapplying the restraint 3. Evaluate the patient's condition at the time of restraint application and continue to monitor patient's condition 4. Inform patient/family regarding the reason for restraint 5. Q2H: Monitor safety checks including skin, circulation, sensory,respiratory, psychosocial status, comfort, nutrition and hydration 6. Ensure safety/first aid measures are in place (i.e. Quick release, suction, crash cart, etc.) Outcome: Progressing Problem: Lack of Knowledge: Goal: Risk factors for ineffective tissue perfusion will decrease Outcome: Progressing Problem: Physical Regulation: Goal: Ability to maintain clinical measurements within normal limits will improve Outcome: Progressing Goal: Will regain or maintain usual level of consciousness Outcome: Progressing Problem: Respiratory: Goal: Ability to maintain adequate ventilation will improve Outcome: Progressing Problem: Tissue Perfusion: Goal: Signs of adequate cerebral perfusion will increase Outcome: Progressing Problem: Safety: Goal: Will remain free from falls Outcome: Progressing Goal: Will remain free from injury from falls Outcome: Progressing Problem: Health Behavior: Goal: Understanding of discharge needs will improve Outcome: Not Progressing Problem: Lack of Knowledge: Goal: Understanding of ways to prevent future skin breakdown will improve Outcome: Not Progressing Problem: Lack of Knowledge: Goal: Knowledge of restraints will improve Description: INTERVENTIONS: 1. Educate patient/caregiver on restraints Outcome: Not Progressing Problem: Safety - Medical Restraint Goal: Free from restraint(s) (Restraint for Interference with Necktie Maker) Description: INTERVENTIONS: 1. Q2H and PRN: Assess and document the continuing need for restraints 2. Q24H: Continued use of restraint requires LIP to perform face to face examination and written order (ICU restraint orders are not reviewed Q24H only at the time of initiation) 3. Identify and implement measures to help patient regain control Outcome: Not Progressing Problem: Lack of Knowledge: Goal: Knowledge of disease or condition will improve Outcome: Not Progressing Goal: Ability to identify and develop effective coping behavior will improve Outcome: Not Progressing Problem: Health Behavior: Goal: Identification of resources available to assist in meeting health care needs will improve Outcome: Not Progressing Problem: Self-Care: Goal: Ability to perform activities of daily living will improve Outcome: Not Progressing Problem: Lack of Knowledge: Goal: Knowledge on safety and abstaining from self-injurious behavior will increase Outcome: Not Progressing N MARKETING ANALYST * Plan of Marilyn - Taryn Suarez RN - 06/17/2021 9:48 AM CST Goals: Clinical Goals for the Shift: [id number], [id number], promote comfort, monitor I&O Summary: Problem: Health Behavior: Goal: Understanding of discharge needs will improve Outcome: Progressing Problem: Nutritional: Goal: Dietary intake will improve Outcome: Progressing Goal: Ability to maintain a balanced intake and output will improve Outcome: Progressing Problem: Lack of Knowledge: Goal: Risk factors for ineffective tissue perfusion will decrease Outcome: Progressing Goal: Knowledge of disease or condition will improve Outcome: Progressing Goal: Ability to identify and develop effective coping behavior will improve Outcome: Progressing Problem: Health Behavior: Goal: Identification of resources available to assist in meeting health care needs will improve Outcome: Progressing Problem: Physical Regulation: Goal: Ability to maintain clinical measurements within normal limits will improve Outcome: Progressing Goal: Will regain or maintain usual level of consciousness Outcome: Progressing Problem: Respiratory: Goal: Ability to maintain adequate ventilation will improve Outcome: Progressing Problem: Self-Care: Goal: Ability to perform activities of daily living will improve Outcome: Progressing Problem: Tissue Perfusion: Goal: Signs of adequate cerebral perfusion will increase Outcome: Progressing Goal: Ability to maintain intracranial pressure will improve Outcome: Progressing Problem: Lack of Knowledge: Goal: Knowledge on safety and abstaining from self-injurious behavior will increase Outcome: Progressing Problem: Lack of Knowledge: Goal: Knowledge of restraints will improve Description: INTERVENTIONS: 1. Educate patient/caregiver on restraints Outcome: Progressing Problem: Lack of Knowledge: Goal: Ability to state ways to decrease the risk of falls will improve Outcome: Progressing Problem: Safety: Goal: Will remain free from falls Outcome: Progressing Goal: Will remain free from injury from falls Outcome: Progressing Goal: Will remain free from falls and injury in home environment Outcome: Progressing N MARKETING ANALYST * Plan of Care - Little Hawkins RN - 06/17/2021 5:30 AM CST Goals: VS AND NEURO CHECKS Q 4 HOUR, SKIN & COMFORT CARE, MONITOR & TREAT LABS & VS REQUIRED Summary: Problem: Activity: Goal: Mobility will improve Outcome: [...] to fullest extent possible Outcome: Progressing Problem: Safety - Medical Restraint Goal: Remains free of injury from restraints (Restraint for Interference with Necktie Maker) Description: INTERVENTIONS: 1. Identify and document the criteria for restraint 2. Determine that other, less restrictive measures have been tried or would not be effective beforeapplying the restraint 3. Evaluate the patient's condition at the time of restraint application and continue to monitor patient's condition 4. Inform patient/family regarding the reason for restraint 5. Q2H: Monitor safety checks including skin, circulation, sensory,respiratory, psychosocial status, comfort, nutrition and hydration 6. Ensure safety/first aid measures are in place (i.e. Quick release, suction, crash cart, etc.) Outcome: Progressing Problem: Lack of Knowledge: Goal: Risk factors for ineffective tissue perfusion will decrease Outcome: Progressing Problem: Physical Regulation: Goal: Ability to maintain clinical measurements within normal limits will improve Outcome: Progressing Goal: Will regain or maintain usual level of consciousness Outcome: Progressing Problem: Respiratory: Goal: Ability to maintain adequate ventilation will improve Outcome: Progressing Problem: Tissue Perfusion: Goal: Signs of adequate cerebral perfusion will increase Outcome: Progressing Problem: Safety: Goal: Will remain free from falls Outcome: Progressing Goal: Will remain free from injury from falls Outcome: Progressing Problem: Health Behavior: Goal: Understanding of discharge needs will improve Outcome: Not Progressing Problem: Lack of Knowledge: Goal: Understanding of ways to prevent future skin breakdown will improve Outcome: Not Progressing Problem: Lack of Knowledge: Goal: Knowledge of restraints will improve Description: INTERVENTIONS: 1. Educate patient/caregiver on restraints Outcome: Not Progressing Problem: Safety - Medical Restraint Goal: Free from restraint(s) (Restraint for Interference with Necktie Maker) Description: INTERVENTIONS: 1. Q2H and PRN: Assess and document the continuing need for restraints 2. Q24H: Continued use of restraint requires LIP to perform face to face examination and written order (ICU restraint orders are not reviewed Q24H only at the time of initiation) 3. Identify and implement measures to help patient regain control Outcome: Not Progressing Problem: Lack of Knowledge: Goal: Knowledge of disease or condition will improve Outcome: Not Progressing Goal: Ability to identify and develop effective coping behavior will improve Outcome: Not Progressing Problem: Health Behavior: Goal: Identification of resources available to assist in meeting health care needs will improve Outcome: Not Progressing Problem: Self-Care: Goal: Ability to perform activities of daily living will improve Outcome: Not Progressing Problem: Lack of Knowledge: Goal: Knowledge on safety and abstaining from self-injurious behavior will increase Outcome: Not Progressing Problem: Lack of Knowledge: Goal: Knowledge of restraints will improve Description: INTERVENTIONS: 1. Educate patient/caregiver on restraints Outcome: Not Progressing Problem: Lack of Knowledge: Goal: Ability to state ways to decrease the risk of falls will improve Outcome: Not Progressing N MARKETING ANALYST * Plan of Care - Charis Scott RRT - 06/17/2021 4:10 AM CST Impression: Patient is currently on spontaneous ventilation Plan: Wean settings as tolerated N MARKETING ANALYST * Plan of Care - Latha Navas RN - 06/16/2021 5:06 PM CST Problem: Activity: Goal: Mobility will improve Outcome: [...] Outcome: Progressing Problem: Lack of Knowledge: Goal: Knowledge of restraints will improve Description: INTERVENTIONS: 1. Educate patient/caregiver on restraints Outcome: Progressing Problem: Lack of Knowledge: Goal: Risk factors for ineffective tissue perfusion will decrease Outcome: Progressing Goal: Knowledge of disease or condition will improve Outcome: Progressing Goal: Ability to identify and develop effective coping behavior will improve Outcome: Progressing Goals: Clinical Goals for the Shift: [id number], [id number], promote comfort, monitor I&O Summary: patient following commands, doesn't answer orientation questions, slightly weaker on RUE N MARKETING ANALYST * ECIN Note - Jazzy Clarke, [facility] - 06/16/2021 3:32 PM CST Images from the original note were not included. Patient Information: OT Eval and Treat Last 72 Hours OT Evaluation Row Name 06/15/21 0931 06/13/21 0805 06/12/21 1053 Chart Reviewed -- Yes -CH -- Session Type -- Evaluation -CH -- OT Received On -- 06/13/21 -CH -- Safe Environment -- Arm Band Checked;Chair Alarm placed and activated;Call Light within Reach;Notified RN;Patient found in Supine;Overbed Table within Reach;Bed in Lowest Position with Wheels locked pt left seated in recliner in NAD, B mitts secured. RNs present -CH -- Subjective -- -- nods head yes when asked to participate -CH -- OT Missed Visit Reason Change in medical status Intubated -SS -- Change in medical status transferred to SDU - Family/Caregiver Present -- No -CH -- Occupational Therapy-Patient Goal -- pt with limited attention to task, unable to participate in goal setting -CH -- Precautions -- Fall risk;Seizure -CH -- Additional Comments -- pt with limited attention to task, unable to obtain -CH -- Prior Function Comments -- pt with limited attention to task, unable to obtain. Per medical record,pt ambulates without a device, lives at home. -CH -- ADLS (WDL) -- X -CH -- Grooming: Where assessed -- Chair -CH -- Grooming: Level of assistance -- Maximum Assist mod for task; total for balance -CH -- Grooming: Assistance with -- Reaching all areas of head/face;Sequencing;Attending to task;Increasedtime to complete A for thoroughness -CH -- LE Dressing: Where assessed -- Edge of bed -CH -- LE Dressing: Level of assistance -- Dependent -CH -- LE Dressing: Assistance with -- Thread RLE into pants;Thread LLE into pants;Don/doff L sock;Don/doff R sock;Pull up over hips;Fasteners - -- Toilet Transfers Comments -- simulated BSC transfer with bed to chair transfer - -- Pain Assessment -- N-PAT -CH -- Current Vision -- -- per medical record, 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 Pt unable to report - -- Vision Comments -- pt with limited eye opening at this time -CH -- Overall Cognitive Status -- Impaired -CH -- Arousal/Alertness -- Lethargic - -- Attention Span -- Controlled environment;Attends with cues to redirect;Distractability - -- Orientation -- Oriented to person - -- Following Commands -- -- >75% of the time -CH -- Light Touch -- -- 2/2 generalized attention impairment - -- Motor Planning -- -- no cues for use for simple/1 step grooming task - -- Fine Motor -- -- would benefit from further testing, assessment limited by impaired attention to task - -- Serial Opposition -- -- NT 2/2 impaired command following - -- RUE Grasp -- Gross grasp 4/5 -CH -- LUE Grasp -- Gross grasp 4/5 - -- Balance -- Yes -CH -- Static Sitting-Balance Support -- No upper extremity supported -CH -- Static Sitting-Sitting Surface -- Bed -CH -- Static Sitting-Level of Assistance -- Moderate assistance -CH -- Static Standing-Balance Support -- Bilateral upper extremity supported - -- Static Standing-Level of Assistance -- Maximum assistance - -- Bed Mobility From 1 -- Supine - -- Bed Mobility Type 1 -- To - -- Bed Mobility to 1 -- Short sit;Edge of bed - -- Level of Assistance 1 -- Maximum Assist - -- Bed Mobility Comments 1 -- assist to maneuver BLEs, elevate trunk, bring hips to EOB - -- Transfer -- Yes - -- Transfer From 1 -- Sit - -- Transfer Type 1 -- To and from - -- Transfer to 1 -- Stand - -- Technique 1 -- Sit to stand;Stand to sit - -- Transfer Device 1 -- No device - -- Transfer Level of Assistance 1 -- Maximum Assist - -- Trials/Comments 1 -- assist for initiation, force production, balance - -- Transfer From 2 -- Bed -CH -- Transfer Type 2 -- To - -- Transfer to 2 -- Chair with arms - -- Technique 2 -- Stand pivot - -- Transfer Device 2 -- Hand held assist - -- Transfer Level of Assistance 2 -- Maximum Assist A of 2 - -- Trials/Comments 2 -- assist for initiation, force production, balance - -- RUE Assessment -- -- assessment limited by impaired attention to task, spontaneous AROM observed, PROM WFL - -- LUE Assessment -- -- assessment limited by impaired attention to task, spontaneous AROM observed, PROM WFL - -- Putting on and taking off regular lower body clothing -- 1 -CH -- Bathing -- 2 -CH -- Toileting -- 2 -CH -- Putting on and taking off upper body clothing -- 2 -CH -- Personal Grooming -- 2 -CH -- Eating Meals -- 1 - -- Total Score (range 6-24) -- 10 - -- Score Interpretation -- 27.31 - -- Problem List -- Decreased upper extremity strength;Decreased safe judgment during ADL;Decreased cognition;Decreased endurance;Visual deficit;Decreased balance;Decreased fine motor control;Decreased functional mobility;Decreased ADL independence;Decreased IADL independence;Decreased trunk control for functional activities;Poor/Decreased functional positioning - -- Plan -- If this is the last note, consider this the discharge summary;Plan of care initiated - -- OT Recommendation -- Inpatient Rehab Facility - -- OT Frequency Monitor status -SS 3-5x/wk - -- Treatment/Interventions -- ADL/IADL retraining;Balance Training;Bed mobility;Cognitive retraining;Compensatory technique education;Endurance training;Equipment eval/education;Functional activity;Functional mobility training;Functional transfer training;Neuromuscular re- education;Parent/caregiver training and education;Positioning;Sensorimotor skills;Strengthening;Therapeutic activity;Therapeutic exercise;Transfer training;Upper extremity motor function/functional skills;Visual motor/perceptual skills - -- OT - Next Appointment 06/19/21 - 06/15/21 - -- OT Evaluation Complete -- Yes -CH -- User Troy (r) = Recorded By, (t) = Taken By, (c) = Cosigned By Initials Name Effective Dates Shefali Trinity, OT 12/29/18 - SS Cielo Moore, OT 06/14/21 - Emerita Medina, OT 12/29/18 - OT Treatment Row Name 06/13/21 0805 N-PAT N-V Smiling.calm, relaxed none 0 -CH N-PAT N-V Movement 0 -CH N-PAT N-V Facial Cues 0 -CH N-PAT N-V Position/Guarding 0 -CH N-PAT N-V Score 0 - User Troy (r) = Recorded By, (t) = Taken By, (c) = Cosigned By Initials Name Effective Dates Trinity Meehan, OT 12/29/18 - OT Notes 06/15/2021 9:31 AM Progress Notes signed by Cielo Moore, OT , PT Eval and Treat Last 72 Hours PT Evaluation Row Name 06/13/21 1043 06/12/21 0856 Chart Reviewed Yes -WT -- Session Type Evaluation -WT -- Safe Environment Arm Band Checked;Chair Alarm placed and activated;Call Light within Reach;NotifiedRN;Session Completed Bedside;Patient found in Supine Pt left in the chair with chiar alarm engaged,all needs in reach -WT -- Subjective Agreeable to Therapy -WT -- Subjective Comment hey there -WT -- PT Missed Visit Reason -- MD/RN Hold transferring to SDU due to being difficult to arouse -CK Family/Caregiver Present No -WT -- Physical Therapy-Patient Goal unable to provide this -WT -- Precautions Aspiration;Fall risk;WENCESLAO;Seizure -WT -- Additional Comments pt not able to provide this information on eval 2/2 impaired cognition and alertness -WT -- Prior Function Comments pt not able to provide this information on eval 2/2 impaired to cognition and alertnses -WT -- Activity Tolerance Comments unable to verbalzie this -WT -- Pain Assessment No/denies pain -WT -- Arousal/Alertness Lethargic;Inconsistent responses to stimuli -WT -- Orientation Oriented to person -WT -- Following Commands Unable to follow commands able to follow a few commands with repetitionand tactile cues -WT -- Compliance/Behavior -- difficulty to engage 2/2 encephalopathy -WT -- Light Touch -- unable to accurately assess -WT -- Balance Yes -WT -- Static Sitting-Balance Support No upper extremity supported;Feet supported;Posterior support;Lateral support -WT -- Static Sitting-Sitting Surface Chair -WT -- Static Sitting-Level of Assistance Maximum assistance -WT -- Static Sitting-Comment/# of Minutes able to engage at times to transition supported > unsupproeted sitting but unable to maintain without maxA of 1 -WT -- Bed Mobility No -WT -- Transfer No -WT -- Ambulation No -WT -- Stairs No -WT -- RUE Assessment -- assessment limited to encephalopathy. not following consistent commands for MMT. PROM WFL. able to provide weak grasp BUE -WT -- RLE Assessment -- unable to grade MMT but pt able to perform some AROM and PROM WFL -WT -- R Hip Flexion 3-/5 -WT -- R Knee Extension 3/5 -WT -- R Ankle Dorsiflexion 3/5 -WT -- LLE Assessment -- unable to grade MMT but pt able to perform some AROM and PROM WFL -WT -- L Hip Flexion 3-/5 -WT -- L Knee Extension 3/5 -WT -- Equipment Use Comments no gait belt not used 2/2 no standing mobilty performed - WT -- Other PT Comments performed seated assessment. performed 8 trials of supported > unsupported sitting with attempts to engage core and place and hold upright unsupported sitting. Pt able to initate 2/8 trials -WT -- How much difficulty does the patient have: Turning over in bed 2 -WT -- How much difficulty does the patient currently have: Sitting down and standing up from a chair witharms? 2 -WT -- How much difficulty does the patient have: Moving from lying on back to sitting on the side of the bed? 2 -WT -- How much difficulty does the patient have: Moving to and from a bed to a chair including wheelchair? 2 -WT -- How much help does the patient currently need: Walk in hospital room? 1 -WT -- How much help from another person does the patient currently need: Climbing 3-5 steps with a railing? 1 -WT -- Total 6 Click Score (range 6-24) 10 -WT -- Score Interpretation 28.13 -WT -- Problem List Gait deviations;Decreased strength;Decreased range of motion;Decreased endurance;Impaired balance;Decreased mobility -WT -- Problem List Comments PT Diagnosis: mechanical fall with ICH/SAH as well as encephalopathy results in above listed activity deficits and impairments which prevent full participation in home and community -WT -- Plan Plan of care initiated;If this is the last note, consider this the discharge summary -WT -- PT Recommendation/Plan Half-Way Facility -WT -- PT Recommendation/Plan Comments SNF pending activity tolerance -WT -- PT Frequency 2-3x/wk -WT -- Treatment/Interventions Balance Training;Bed mobility;Endurance training;Functional activity;Functional transfer training;Gait training;Neuromuscular re-education;Stair training;Strengthening;Therapeutic activity;Therapeutic exercise;Transfer training -WT -- PT Evaluation Complete Yes -WT -- User Troy (r) = Recorded By, (t) = Taken By, (c) = Cosigned By Initials Name Effective Dates WT Maribel Combs, PT 05/10/21 - CK Queta Rios, PT 03/09/19 - PT TREATMENT (last 168 hours) PT Treatment Row Name 06/15/21 1228 PT Last Visit PT Missed Visit Reason MD/RN Hold intubated -DT Recommendation/Plan PT Frequency Monitor status -DT User Troy (r) = Recorded By, (t) = Taken By, (c) = Cosigned By Initials Name Effective Dates DT Sera Guevara, PT 03/09/19 - PT Notes Notes from 06/14/21 through 06/16/21 No notes of this type exist for this encounter. , COTTAGE CHEESE MAKER Eval and Treat Last 72 Hours COTTAGE CHEESE MAKER Evaluation Row Name 06/16/21 1318 06/15/21 0853 COTTAGE CHEESE MAKER Missed Visit Reason -- intubated - Patient declined now intubated. - COTTAGE CHEESE MAKER Frequency of Services Monitor status - Monitor status - COTTAGE CHEESE MAKER - Next Appointment 06/19/21 - 06/16/21 - User Troy (r) = Recorded By, (t) = Taken By, (c) = Cosigned By Initials Name Effective Dates Mildred Farrell, JOE 12/29/18 - COTTAGE CHEESE MAKER Treatment No documentation. Clinical Swallow Study No documentation. COTTAGE CHEESE MAKER Notes Notes from 06/14/21 through 06/16/21 No notes of this type exist for this encounter. , Wound Info Only Patient Lines/Drains/Airways Status Active Wound / Pressure ulcer / Johnson / Negative Pressure Wound Wound 06/12/21 Abscess Left Scrotum spontaneaously draining large amount purulent/sanguinous exudate Date First Assessed 06/12/21 Site Scrotum Time First Assessed 1819 Days 3 Wound Type: Abscess Location Orientation: Left Wound Description (Comments): spontaneaously draining large amount purulent/sanguinous exudate Assessments Row Name 06/15/21199906/15/2179906/14/211999 Wound Status Healed -- Evolving Site Assessment -- -- Bleeding;Fragile Valentine-wound Assessment -- -- Intact;Fragile;Painful Margins -- -- Attached edges Closure -- -- Approximated Drainage Amount -- -- Small Drainage Description -- -- Creamy;Yellow Drainage Odor -- -- No odor Dressing Status -- -- New Dressing -- -- ABD Interventions -- -- Cleansed Wound 06/12/21 Coccyx Date First Assessed 06/12/21 Site Coccyx Time First Assessed 1999 Days 3 Present on Hospital Admission: Yes Assessments Row Name 06/15/21199906/15/21 0806/14/211999 Wound Status Healed Healed Healed Site Assessment Color appropriate for ethnicity Color appropriate for ethnicity;Clean Clean;Color appropriate for ethnicity;Dry;Intact Valentine-wound Assessment Dry;Intact Dry;Intact Dry;Intact Margins -- Attached edges Attached edges Closure Approximated Approximated Approximated Drainage Amount None None None Dressing Open to air Open to air Open to air Interventions -- Topical barrier cream Topical barrier cream , Oxygen Info Only Default Flowsheet Data (most recent) Endurance Tests No documentation. Default Flowsheet Data (last 48 hours) Oxygen Row Name 06/16/21 1400 06/16/21 1300 06/16/21 1200 06/16/21 1125 06/16/21 1100 Oxygen Therapy/Pulse Ox O2 Therapy Supplemental oxygen Supplemental oxygen -- -- Supplemental oxygen O2 Del Method ETT ETT -- -- ETT FiO2 (%) 40 % 40 % -- 40 % 40 % SpO2 97 % 99 % 100 % 99 % 99 % Patient Activity At rest At rest -- -- At rest Row Name 06/16/21 1000 06/16/21 0846 06/16/21 0600 06/16/21 0500 06/16/21 0429 Oxygen Therapy/Pulse Ox O2 Therapy Supplemental oxygen -- Supplemental oxygen Supplemental oxygen -- O2 Del Method ETT -- ETT ETT -- FiO2 (%) 40 % 40 % 40 % 40 % 40 % SpO2 94 % 100 % 100 % 100 % 100 % Patient Activity At rest -- At rest At rest -- Row Name 06/16/21 0400 06/16/21 0300 06/16/21 0200 06/16/21 0100 06/16/21 0044 Oxygen Therapy/Pulse Ox O2 Therapy Supplemental oxygen Supplemental oxygen Supplemental oxygen Supplemental oxygen -- O2 Del Method ETT ETT ETT ETT -- FiO2 (%) 40 % 40 % 40 % 40 % 40 % SpO2 98 % 100 % 100 % 100 % 100 % Patient Activity At rest At rest At rest At rest -- Row Name 06/16/21 0000 06/15/21 2300 06/15/21 2200 06/15/21 2100 06/15/21 2056 Oxygen Therapy/Pulse Ox O2 Therapy Supplemental oxygen Supplemental oxygen Supplemental oxygen Supplemental oxygen -- O2 Del Method ETT ETT ETT ETT -- FiO2 (%) 40 % 40 % 40 % 40 % 40 % SpO2 99 % 99 % 100 % 99 % 98 % Patient Activity At rest At rest At rest At rest -- Row Name 06/15/21 2000 06/15/21 1900 06/15/21 1800 06/15/21 1700 06/15/21 1603 Oxygen Therapy/Pulse Ox O2 Therapy Supplemental oxygen Supplemental oxygen Supplemental oxygen Supplemental oxygen None (Room air) O2 Del Method ETT ETT ETT -- ETT FiO2 (%) 40 % 40 % 40 % -- 40 % SpO2 100 % 98 % 100 % 100 % 100 % Patient Activity At rest At rest At rest At rest At rest Row Name 06/15/21 1600 06/15/21 1500 06/15/21 1400 06/15/21 1329 06/15/21 1300 Oxygen Therapy/Pulse Ox O2 Therapy None (Room air) Supplemental oxygen Supplemental oxygen -- Supplemental oxygen O2 Del Method ETT ETT ETT -- ETT FiO2 (%) 40 % 40 % 40 % 40 % 40 % SpO2 100 % 100 % 99 % 98 % 94 % Patient Activity At rest At rest At rest -- At rest Row Name 06/15/21 1222 06/15/21 1200 06/15/21 1103 06/15/21 1100 06/15/21 1000 Oxygen Therapy/Pulse Ox O2 Therapy -- Supplemental oxygen -- Supplemental oxygen Supplemental oxygen O2 Del Method -- ETT -- ETT ETT FiO2 (%) 40 % 40 % -- -- 40 % SpO2 96 % 100 % 97 % 96 % 97 % Patient Activity -- At rest -- At rest At rest Row Name 06/15/21 0900 06/15/21 0817 06/15/21 0800 06/15/21 0700 06/15/21 0600 Oxygen Therapy/Pulse Ox O2 Therapy Supplemental oxygen -- Supplemental oxygen Supplemental oxygen Supplemental oxygen O2 Del Method ETT -- ETT ETT ETT FiO2 (%) 40 % 40 % 40 % 40 % 40 % SpO2 92 % 100 % 100 % 100 % 100 % Patient Activity At rest -- At rest At rest At rest Row Name 06/15/21 0536 06/15/21 0500 06/15/21 0400 06/15/21 0300 06/15/21 0236 Oxygen Therapy/Pulse Ox O2 Therapy -- Supplemental oxygen Supplemental oxygen Supplemental oxygen -- O2 Del Method -- ETT ETT ETT -- FiO2 (%) 40 % 40 % 60 % 60 % -- SpO2 100 % 100 % 100 % 99 % 92 % Patient Activity -- At rest At rest At rest -- Row Name 06/15/21 0215 06/15/21 0200 06/15/21 0138 06/15/21 0119 06/15/21 0100 Oxygen Therapy/Pulse Ox O2 Therapy -- Supplemental oxygen -- Supplemental oxygen Supplemental oxygen O2 Del Method -- Face tent -- Face tent Face tent FiO2 (%) -- 80 % -- 80 % 80 % O2 Flow Rate (L/min) -- 15 L/min -- 15 L/min 15 L/min SpO2 96 % 100 % 86 % 100 % 92 % Patient Activity -- At rest -- -- At rest Row Name 06/15/21 0000 06/14/21 2300 06/14/21 2232 06/14/21 2200 06/14/21 2100 Oxygen Therapy/Pulse Ox O2 Therapy Supplemental oxygen Supplemental oxygen Supplemental oxygen Supplemental oxygen Supplemental oxygen O2 Del Method Face tent Face tent Face tent Face tent Face tent FiO2 (%) 30 % 30 % 30 % 30 % 30 % O2 Flow Rate (L/min) 8 L/min 8 L/min 8 L/min 8 L/min 8 L/min SpO2 96 % 100 % -- 97 % 100 % Patient Activity At rest At rest -- At rest At rest Row Name 06/14/21 2000 06/14/21 1900 06/14/21 1800 06/14/21 1700 06/14/21 1600 Oxygen Therapy/Pulse Ox O2 Therapy Supplemental oxygen Supplemental oxygen Supplemental oxygen Supplemental oxygen Supplemental oxygen O2 Del Method Face tent Face tent Face tent Face tent Face tent FiO2 (%) 30 % 30 % 30 % 30 % 30 % O2 Flow Rate (L/min) 8 L/min 8 L/min 8 L/min 8 L/min 8 L/min SpO2 100 % 97 % 95 % 95 % 96 % Patient Activity At rest At rest At rest At rest At rest , Adult Vent Settings last 72 hours Ventilator Documentation last 72 hours (last 72 hours) Ventilator Documentation Row Name 06/15/21 0536 06/15/21 0817 06/15/21 1222 06/15/21 1329 06/15/21 1603 Airway Type of Airway Endotracheal tube Endotracheal tube Endotracheal tube Endotracheal tube Endotrachealtube Vent Information Adult Vent Mode Volume control/Assist control Volume control/Assist control Volume control/Assist control Pressure support Ventilation Pressure support Ventilation Vent Type PB 980 PB 980 PB 980 PB 980 PB 980 Vent ID Y Y Y Y Y Ventilator Initiated Yes -- -- -- -- Vent Status In Use In Use In Use In Use In Use $ Vent Daily Charge-Subsequent Yes -- -- -- -- ETT ETT - single 8 mm ETT Properties ETT Type: ETT - single Single Lumen Tube Size: 8 mm Cuffed: Yes Location: Oral Secured at (cm) -- 27 cm -- 27 cm 27 cm Measured from -- Teeth -- Teeth Teeth Secured Location -- Right -- Center Center Secured by -- Commercial tube broderick secured -- Commercial tube broderick secured Commercial tube broderick secured Air Leak -- No -- Yes No Settings FiO2 (%) 40 % 40 % 40 % 40 % 40 % Resp Rate (Set) 20 16 16 -- -- Vt (Set, mL) 500 mL 500 mL 500 mL -- -- Peak Insp. Flow (set) 60 l/m 60 l/m 60 l/m -- -- PEEP/CPAP/EPAP (cm H2O) 7.5 cm H20 7.5 cm H20 7.5 cm H20 -- 7.5 cm H20 Pressure Support (cm H2O) -- -- -- 10 cm H20 10 cm H20 Trigger Sensitivity Flow (L/min) 2 L/min 2 L/min 2 L/min 2 L/min 2 L/min Humidification Heater Heat and moisture exchanger Heat and moisture exchanger Heat and moisture exchanger Heat and moisture exchanger Vital Signs Pulse 120 125 84 88 117 ETCO2 (mmHg) Vent 20 mmHg 31 mmHg 30 mmHg 32 mmHg 27 mmHg SpO2 100 % 100 % 96 % 98 % 100 % Measured VT (exhaled) 484 mL 454 mL 453 mL 398 mL -- VT Spontaneous (mL) -- -- -- -- 362 mL Minute Ventilation (L/min) 9.6 L/min 7.3 L/min 9.1 L/min 6.4 L/min 6.1 L/min (Vent) Resp Rate Observed 20 16 20 16 17 PIP Observed (cm H2O) 21 cm H2O 34 cm H2O 19 cm H2O 18 cm H2O 18 cm H2O MAP (cmH2O) 12 13 11 11 11 Plateau Pressure (cmH2O) -- 16 cm H2O -- -- -- I:E Ratio -- -- -- 1:2.2 -- RT Therapist Assist Charges RT Therapist Assist Ventilation 1 1 1 1 1 Row Name 06/15/21205506/16/21 0044 06/16/21 0429 06/16/21 0846 06/16/21 1125 Airway Type of Airway Endotracheal tube Endotracheal tube Endotracheal tube Endotracheal tube Endotrachealtube Vent Information Adult Vent Mode Pressure support Ventilation Pressure support Ventilation Pressure support Ventilation Pressure support Ventilation Pressure support Ventilation Vent Type PB 980 PB 980 PB 980 PB 980 PB 980 Vent ID Y Y Y Y Y Vent Status In Use In Use In Use In Use In Use $ Vent Daily Charge-Subsequent -- -- Yes -- -- ETT ETT - single 8 mm ETT Properties ETT Type: ETT - single Single Lumen Tube Size: 8 mm Cuffed: Yes Location: Oral Secured at (cm) 29 cm 29 cm 29 cm 28 cm 28 cm Measured from Teeth Teeth Teeth Teeth Teeth Secured Location Left Left Left Center Right Secured by Commercial tube broderick secured Commercial tube broderick secured Commercial tube broderick secured Commercial tube broderick secured Commercial tube broderick secured Air Leak -- -- -- No No Settings FiO2 (%) 40 % 40 % 40 % 40 % 40 % PEEP/CPAP/EPAP (cm H2O) 7.5 cm H20 7.5 cm H20 7.5 cm H20 7.5 cm H20 7.5 cm H20 Pressure Support (cm H2O) 10 cm H20 10 cm H20 10 cm H20 10 cm H20 10 cm H20 Trigger Sensitivity Flow (L/min) 2 L/min 2 L/min 2 L/min 2 L/min 2 L/min Humidification Heat and moisture exchanger Heat and moisture exchanger Heat and moisture exchanger Heater Heater Heater Temperature (set) -- -- -- 37 ??C (98.6 ??F) 37 ??C (98.6 ??F) Vital Signs Pulse 91 117 117 126 106 ETCO2 (mmHg) Vent 33 mmHg 34 mmHg 34 mmHg 33 mmHg 30 mmHg SpO2 98 % 100 % 100 % 100 % 99 % Measured VT Spontaneous (mL) 440 mL 428 mL 428 mL 533 mL 355 mL Minute Ventilation (L/min) 7.4 L/min 7.4 L/min 7.4 L/min 14.2 L/min 7.5 L/min (Vent) Resp Rate Observed 19 20 20 23 16 PIP Observed (cm H2O) -- -- -- 19 cm H2O 19 cm H2O MAP (cmH2O) 11 12 12 12 11 RT Therapist Assist Charges RT Therapist Assist Ventilation 1 1 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 Inactive Active Linked ? Medications 06/16/21 06/17/21 06/18/21 06/19/21 06/20/21 06/21/21 06/22/21 amiodarone (PACERONE) tablet 400 mg Dose: 400 mg Freq: 3 times daily Route: feed tube Start: 06/14/21 0900 End: 06/19/21 0859 0912 1600 2099 09 1600 2099 09 1600 2099 0859-D/C'd Followed by amiodarone (PACERONE) tablet 200 mg Dose: 200 mg Freq: Daily Route: feed tube Start: 06/19/21 0900 0900 0900 09 0900 chlorhexidine (PERIDEX) 0.12 % solution 15 mL Dose: 15 mL Freq: 2 times daily Route: mouth/throat Start: 06/15/21 1000 0915 2099 899 2099 899 2099 899 2099 899 2099 899 2099 Dose: 100 mg Freq: 2 times daily Route: oral Indications of Use: constipation Indications Comment: Stool Softener Start: 06/11/212099 End: 06/12/211121 Admin Instructions: If able to swallow capsules. Or docusate (COLACE) 10 mg/mL oral liquid 100 mg Dose: 100 mg Freq: 2 times daily Route: feed tube Indications of Use: constipation Indications Comment: Stool Softener Start: 06/11/212099 Admin Instructions: If medications administered per tube. 911 2099 899 2099 899 2099 899 2099 899 2099 folic acid (FOLVITE) tablet 1 mg Dose: 1 mg Freq: Daily Route: feed tube Start: 06/12/21 1245 0915 0900 0900 0900 0900 0900 furosemide (LASIX) tablet 20 mg Dose: 20 mg Freq: Daily Route: feed tube Start: 06/14/21 1145 1123 0900 0900 0900 0900 heparin 5,000 unit/mL injection 5,000 Units Dose: 5,000 Units Freq: Every 8 hours scheduled Route: subQ Indications of Use: VTE Prophylaxis Start: 06/13/21 1445 0541 1402 2200 0600 1400 2200 0600 1400 2200 0600 1400 2200 levETIRAcetam (KEPPRA) tablet 500 mg Dose: 500 mg Freq: 2 times daily Route: feed tube Start: 06/13/21 1345 End: 06/19/21 1259 0121 1400 0100 1300 0100 1300 0100 1259-D/C'd metoprolol tartrate (LOPRESSOR) immediate release tablet 25 mg Dose: 25 mg Freq: Every 6 hours Route: feed tube Start: 06/16/21 1415 1402 201415 [id number] 1415 2014 metoprolol tartrate immediate release capsule 12.5 mg Dose: 12.5 mg Freq: Once Route: oral Start: 06/16/21 1215 End: 06/17/21 1215 (6133) 2430-D/C'd gcnxhlvm-fkj-rbkrsgu gluconate (CENTRUM) 0.6 mg iron/mL oral liquid 15 mL Dose: 15 mL Freq: Daily Route: feed tube Start: 06/12/21 1245 0912 0900 09 09 09 0900 pantoprazole (PROTONIX) 4 mg/mL injection 40 mg Dose: 40 mg Freq: Every 24 hours scheduled Route: IV Indications of Use: Treatment of Non-Bleeding Gastric Disorder Start: 06/12/21 1415 Admin Instructions: For IV Push administration for adults- 40 mg vial: add 10 mL of sodium chloride 0.9% to achieve afinal concentration of 4 mg/mL 911 899 09 09 09 09 pravastatin (PRAVACHOL) tablet 40 mg Dose: 40 mg Freq: Daily Route: feed tube Start: 06/13/21 0900 0915 09 09 0900 Dose: 1 tablet Freq: 2 times daily Route: oral Indications of Use: constipation Start: 06/11/212099 End: 06/12/21 112 Admin Instructions: If able to swallow tablets Or senna 1.76 mg/mL syrup 8.8 mg Dose: 8.8 mg Freq: 2 times daily Route: feed tube Indications of Use: constipation Start: 06/11/212099 Admin Instructions: If medications administered per tube. 0912 2100 0900 2100 0900 2100 0900 2100 0900 2100 sodium chloride 0.9% flush 0.5-20 mL Dose: 0.5-20 mL Freq: Every 8 hours scheduled Route: cath Indications of Use: flushing Start: 06/11/212199 Admin Instructions: Flush volume based on line type and size. (1096) 1403 2200 0600 1400 2200 0600 1400 2200 0600 1400 2200 0600 1400 2200 sodium chloride 0.9% flush 0.5-20 mL Dose: 0.5-20 mL Freq: Every 8 hours scheduled Route: cath Indications of Use: flushing Start: 06/11/212199 Admin Instructions: Flush volume based on line type and size. (5380) 1403 2200 0600 1400 2200 0600 1400 2200 0600 1400 2200 0600 1400 2200 terazosin (HYTRIN) capsule 20 mg Dose: 20 mg Freq: Nightly Route: feed tube Start: 06/14/212099 Dose: 500 mg Freq: Every 8 hours Route: IV Indications of Use: Treatment of Wernicke's Encephalopathy Start: 06/12/21 1630 End: 06/14/21 0907 Followed by thiamine (VITAMIN B-1) 250 mg in sodium chloride 0.9% 100 mL IVPB Dose: 250 mg Freq: Every 24 hours scheduled Route: IV Indications of Use: Treatment of Wernicke's Encephalopathy Start: 06/14/21 1630 End: 06/19/21 0859 0912 0900 0900 0859-D/C'd Followed by thiamine (VITAMIN B1) tablet 100 mg Dose: 100 mg Freq: Daily Route: feed tube Start: 06/19/21 0900 0900 0900 0900 0900 Medications 06/16/21 06/17/21 06/18/21 06/19/21 06/20/21 06/21/21 06/22/21 ?? Continuous Meds Sorted by Name for Sale, Jania A as of 06/16/21 1524 Legend: ? Inactive Active Linked ? Medications 06/16/21 06/17/21 06/18/21 06/19/21 06/20/21 06/21/21 06/22/21 ?? PRN Meds Sorted by Name for Sale, Jania A as of 06/16/21 1524 Legend: ? Inactive Active Linked ? Medications 06/16/21 06/17/21 06/18/21 06/19/21 06/20/21 06/21/21 06/22/21 acetaminophen (TYLENOL) tablet 650 mg Dose: 650 mg Freq: Every 4 hours PRN Route: feed tube PRN Reasons: fever,1st line for pain PRN Comment: temperature greater than 38.5 C Start: 06/12/21 1550 artificial saliva (MOUTH KOTE) spray 2 application Dose: 2 application Freq: Every 4 hours PRN Route: mouth/throat PRN Reason: dry mouth Start: 06/12/21 1728 bisacodyL (DULCOLAX) suppository 10 mg Dose: 10 mg Freq: Daily PRN Route: rect PRN Reason: constipation PRN Comment: If no results 24 hours after polyethylene glycol (MIRALAX). May give bisacodyl tablet if tolerating PO. Indications of Use: constipation Start: 06/11/211912 levalbuterol (XOPENEX) 1.25 mg/3 mL nebulizer solution 1.25 mg Dose: 1.25 mg Freq: Every 6 hours PRN (customer response representative) Route: nebu PRN Reasons: wheezing,shortness of breath Start: 06/13/21 1245 Order specific questions: I /authorizing provider attest that the patient meets the approved [facility] Use Criteria: Yes ondansetron ODT (ZOFRAN-ODT) disintegrating tablet 4 mg Dose: 4 mg Freq: Every 6 hours PRN Route: oral PRN Reasons: nausea,vomiting Indications Comment: Nausea and Vomiting Start: 06/11/211912 End: 06/12/211727 Or ondansetron (ZOFRAN) injection 4 mg Dose: 4 mg Freq: Every 6 hours PRN Route: IV PRN Reasons: nausea,vomiting PRN Comment: if not tolerating PO Indications Comment: Nausea and Vomiting Start: 06/11/211912 polyvinyl alcohol-povidone (REFRESH CLASSIC) 1.4-0.6 % ophthalmic solution 2 drop Dose: 2 drop Freq: 4 times daily PRN Route: each eye PRN Reason: dry eyes Start: 06/13/21 0748 sodium chloride 0.9% flush 0.5-20 mL Dose: 0.5-20 mL Freq: As needed Route: cath PRN Reason: line care Indications of Use: flushing Start: 06/11/211912 Admin Instructions: Flush volume based on line type and size. Flush before and after each use. sodium chloride 0.9% flush 0.5-20 mL Dose: 0.5-20 mL Freq: As needed Route: cath PRN Reason: line care Indications of Use: flushing Start: 06/11/211912 Admin Instructions: Flush volume based on line type and size. Flush before and after each use. Medications 06/16/21 06/17/21 06/18/21 06/19/21 06/20/21 06/21/21 06/22/21 ?? N MARKETING ANALYST * Plan of Care - Dmitry Pedroza RRT - 06/16/2021 2:01 AM CST Pt is on spontaneous ventilator settings. RCS to monitor . N MARKETING ANALYST * Plan of Care - Zaria Card RN - 06/16/2021 12:23 AM CST Goals: Clinical Goals for the Shift: [id number], [id number], promote comfort, monitor I&O Problem: Health Behavior: Goal: Understanding of discharge needs will improve Outcome: Progressing Problem: Activity: Goal: Mobility will improve Outcome: Progressing Problem: Lack of Knowledge: Goal: Understanding of ways to prevent future skin breakdown will improve Outcome: Progressing Problem: Nutritional: Goal: Dietary intake will improve Outcome: Progressing Problem: Skin Integrity: Goal: Risk for impaired skin integrity will decrease Outcome: Progressing Problem: Lack of Knowledge: Goal: Knowledge of restraints will improve Description: INTERVENTIONS: 1. Educate patient/caregiver on restraints Outcome: Not Progressing Problem: Safety - Medical Restraint Goal: Remains free of injury from restraints (Restraint for Interference with Necktie Maker) Description: INTERVENTIONS: 1. Identify and document the criteria for restraint 2. Determine that other, less restrictive measures have been tried or would not be effective beforeapplying the restraint 3. Evaluate the patient's condition at the time of restraint application and continue to monitor patient's condition 4. Inform patient/family regarding the reason for restraint 5. Q2H: Monitor safety checks including skin, circulation, sensory,respiratory, psychosocial status, comfort, nutrition and hydration 6. Ensure safety/first aid measures are in place (i.e. Quick release, suction, crash cart, etc.) Outcome: Progressing Problem: Lack of Knowledge: Goal: Knowledge of restraints will improve Description: INTERVENTIONS: 1. Educate patient/caregiver on restraints Outcome: Not Progressing Problem: Health Behavior: Goal: Identification of resources available to assist in meeting health care needs will improve Outcome: Progressing Problem: Physical Regulation: Goal: Will regain or maintain usual level of consciousness Outcome: Progressing Problem: Respiratory: Goal: Ability to maintain adequate ventilation will improve Outcome: Progressing Problem: Tissue Perfusion: Goal: Ability to maintain intracranial pressure will improve Outcome: Progressing Problem: Lack of Knowledge: Goal: Ability to state ways to decrease the risk of falls will improve Outcome: Progressing Problem: Safety: Goal: Will remain free from injury from falls Outcome: Progressing Summary: N MARKETING ANALYST * Plan of Care - Jemma Steward RN - 06/15/2021 4:00 PM CST Case Management unable to perform initial interview, for discharge planning. Patient and or family unavailable at this time. CM will attempt at a later time. If any discharge planning needs arise, please call covering case assistant. Patient admitted with: BRYN Steward Manager Progressive Care Available from 8a.m.-4:30p.m. For emergency needs from 4:31p.m. - 7:59a.m., please call the link knitting machine operator For weekend/holiday needs from 8:00a.m. - 4:30p.m., please call the Weekend Dividend Deposit Voucher Clerk. N MARKETING ANALYST * Plan of Care - Wellington Tom RN - 06/15/2021 3:44 PM CST Goals: Clinical Goals for the Shift: Q1 VS, Q4 neuro, promote comfort and manage safety Summary: Problem: Activity: Goal: Mobility will improve Outcome: [...] Outcome: Progressing Problem: Lack of Knowledge: Goal: Knowledge of restraints will improve Description: INTERVENTIONS: 1. Educate patient/caregiver on restraints Outcome: Progressing Problem: Safety - Medical Restraint Goal: Remains free of injury from restraints (Restraint for Interference with Necktie Maker) Description: INTERVENTIONS: 1. Identify and document the criteria for restraint 2. Determine that other, less restrictive measures have been tried or would not be effective beforeapplying the restraint 3. Evaluate the patient's condition at the time of restraint application and continue to monitor patient's condition 4. Inform patient/family regarding the reason for restraint 5. Q2H: Monitor safety checks including skin, circulation, sensory,respiratory, psychosocial status, comfort, nutrition and hydration 6. Ensure safety/first aid measures are in place (i.e. Quick release, suction, crash cart, etc.) Outcome: Progressing Goal: Free from restraint(s) (Restraint for Interference with Necktie Maker) Description: INTERVENTIONS: 1. Q2H and PRN: Assess and document the continuing need for restraints 2. Q24H: Continued use of restraint requires LIP to perform face to face examination and written order (ICU restraint orders are not reviewed Q24H only at the time of initiation) 3. Identify and implement measures to help patient regain control Outcome: Progressing Problem: Lack of Knowledge: Goal: Risk factors for ineffective tissue perfusion will decrease Outcome: Progressing Goal: Knowledge of disease or condition will improve Outcome: Progressing Goal: Ability to identify and develop effective coping behavior will improve Outcome: Progressing Problem: Health Behavior: Goal: Identification of resources available to assist in meeting health care needs will improve Outcome: Progressing Problem: Physical Regulation: Goal: Ability to maintain clinical measurements within normal limits will improve Outcome: Progressing Goal: Will regain or maintain usual level of consciousness Outcome: Progressing Problem: Respiratory: Goal: Ability to maintain adequate ventilation will improve Outcome: Progressing Problem: Self-Care: Goal: Ability to perform activities of daily living will improve Outcome: Progressing Problem: Tissue Perfusion: Goal: Signs of adequate cerebral perfusion will increase Outcome: Progressing Goal: Ability to maintain intracranial pressure will improve Outcome: Progressing Problem: Lack of Knowledge: Goal: Knowledge on safety and abstaining from self-injurious behavior will increase Outcome: Progressing Problem: Lack of Knowledge: Goal: Knowledge of restraints will improve Description: INTERVENTIONS: 1. Educate patient/caregiver on restraints Outcome: Progressing Problem: Lack of Knowledge: Goal: Ability to state ways to decrease the risk of falls will improve Outcome: Progressing Problem: Safety: Goal: Will remain free from falls Outcome: Progressing Goal: Will remain free from injury from falls Outcome: Progressing Goal: Will remain free from falls and injury in home environment Outcome: Progressing N MARKETING ANALYST * Plan of Care - Dmitry Pedroza RRT - 06/15/2021 4:01 AM CST Pt is on full support .RCS to monitor. N MARKETING ANALYST * Significant Event - Digna Carter NP - 06/15/2021 2:58 AM CST Patient continued to desaturate and required intubation. I called [employer] [phone] to update. I was not able to get a hold of [employer] I called the patient's daughter Latha Díaz [phone] and updated her on the patient's current status. All questions were answered. N MARKETING ANALYST * Plan of Care - Aby Toney RN - 06/14/2021 9:51 PM CST Problem: Health Behavior: Goal: Understanding of discharge [...] Outcome: Progressing Problem: Lack of Knowledge: Goal: Knowledge of restraints will improve Description: INTERVENTIONS: 1. Educate patient/caregiver on restraints Outcome: Progressing Problem: Safety - Medical Restraint Goal: Remains free of injury from restraints (Restraint for Interference with Necktie Maker) Description: INTERVENTIONS: 1. Identify and document the criteria for restraint 2. Determine that other, less restrictive measures have been tried or would not be effective beforeapplying the restraint 3. Evaluate the patient's condition at the time of restraint application and continue to monitor patient's condition 4. Inform patient/family regarding the reason for restraint 5. Q2H: Monitor safety checks including skin, circulation, sensory,respiratory, psychosocial status, comfort, nutrition and hydration 6. Ensure safety/first aid measures are in place (i.e. Quick release, suction, crash cart, etc.) Outcome: Progressing Problem: Lack of Knowledge: Goal: Risk factors for ineffective tissue perfusion will decrease Outcome: Progressing Goal: Knowledge of disease or condition will improve Outcome: Progressing Goal: Ability to identify and develop effective coping behavior will improve Outcome: Progressing Problem: Health Behavior: Goal: Identification of resources available to assist in meeting health care needs will improve Outcome: Progressing Problem: Physical Regulation: Goal: Ability to maintain clinical measurements within normal limits will improve Outcome: Progressing Goal: Will regain or maintain usual level of consciousness Outcome: Progressing Problem: Respiratory: Goal: Ability to maintain adequate ventilation will improve Outcome: Progressing Problem: Self-Care: Goal: Ability to perform activities of daily living will improve Outcome: Progressing Problem: Tissue Perfusion: Goal: Signs of adequate cerebral perfusion will increase Outcome: Progressing Goal: Ability to maintain intracranial pressure will improve Outcome: Progressing Problem: Lack of Knowledge: Goal: Knowledge on safety and abstaining from self-injurious behavior will increase Outcome: Progressing Goals: Clinical Goals for the Shift: Q1 VS, Q4 neuro, promote comfort and manage safety N MARKETING ANALYST * Plan of Care - Brittany Guaman RRT - 06/14/2021 3:15 PM CST Patient ordered on Cough Assist. Patient tolerated treatment poorly. Patient's bronchial hygiene risk score is 14. Plan - Continue treatment as ordered. N MARKETING ANALYST * Significant Event - Cassie Trent NP - 06/14/2021 2:51 PM GREEN MARKETING ANALYST I called the patient's significant other/ex- Raine Díaz ([phone]) to provide update todayand there was no answer. I also called the patient's daughter Latha Díaz ([phone]) and there was also no answer. Voicemails left with encouragement to call back at her convenience for updates. Of note, I have been speaking with Raine daily since ICU admission on 06/12 to provide updates regarding Mr. Redman's condition and plan of care. 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 Had first been taken to [facility] via EMS on 06/08 after sustaining fall with LOC at home. At [place] initially CT head negative and he was admitted overnight 06/08-06/09 for further evaluation and treatment of possible syncopal episodes. There was reported involuntary movements and nystagmus for which he was loaded with Keppra and planned for EEG, the course of this is unclear. He had reportedly been started on CIWA protocol with librium. An MRI later revealed SAH, IVH, small IPH for whi ch he was ultimately transferred to [facility] under the neurosurgerical service the evening of 06/11. Overnight 06/11-06/12 not following commands and somnolent, possibly worse following Ativan administration for high CIWA score (15, scoring for disorientation and poor eye contact which was reportedly baselineon admission). Transferred from floor to stepdown unit the morning of 06/12 for closer observation and NSGY consulted medicine service for assistance with syncope work-up and management of multiple comorbidities. Ongoing somnolence/lethargy throughout the morning and on medicine consult eval concern for being at risk for airway compromise with his impaired level of consciousness. A nasal trumpet was placed, POCT ABG 7.43//24 and he was then transferred to 94 ICU for closer monitoring. [facility] records received and reviewed. Summarized as follows (see paper chart for records): ICU Course: Significant for ongoing encephalopathy of unclear etiology (likely multifactorial with cEEG negative for seizure and MRI negative for stroke), a- fib RVR requiring increase in home metoprolol dose and amiodarone load, oliguria ultimately responsive to lasix, and dysphagia requiring NG placement. Despite his traumatic Brain Injury with SAH and IVH, he has sustained his neurologic exam. On 06/17, scrotal drainage sent for cultures. US demonstrated left hydrocele. CT pelvis positive forleft hydrocele, left scrotal cellulitis and left non- displaced trochanteric fracture. Currently on 12 day course of antibiotics with bactrim and flaygyl that will end on PM of 06/29 (susceptibilities sent to [place]). Extubated on 06/18 and placed on high humidity face tent to help mobilize secretions. Ortho consulted for left trochanteric fracture but no plan for surgery. Postivive orthostatics notedon 06/22 (unable to obtain standing BP but positive from lying to sitting). Due to concern for syncope, decreased terazosin dose to 10 mg daily. Patient has been unable to weight bear on LLE with PT, MRI L hip is pending to further assess for inury. Passed MBS on 06/26 for dysphagia diet (no liquids)and calorie count initiated; tube feeds discontinued to encourage oral intake. Now off HHFT and on room air since 06/26 and tolerating well with CPT and cough assist BID. For his ICU delirium, has responded well to ramelteon 8mg nightly at 1800 to establish a normal sleep/wake cycle and trazodone 100mg qHs. N MARKETING ANALYST N MARKETING ANALYST N MARKETING ANALYST * Plan of Care - Jemma Steward RN - 06/14/2021 1:29 PM CST Case Management unable to perform initial interview, for discharge planning. Patient and or family unavailable at this time. CM will attempt at a later time. If any discharge planning needs arise, please call covering case assistant. Patient admitted with: BRYN Steward Manager Progressive Care Available from 8a.m.-4:30p.m. For emergency needs from 4:31p.m. - 7:59a.m., please call the link knitting machine operator For weekend/holiday needs from 8:00a.m. - 4:30p.m., please call the Weekend Dividend Deposit Voucher Clerk. N MARKETING ANALYST * Plan of Care - Latha Chaves RN - 06/14/2021 9:25 AM CST Problem: Activity: Goal: Mobility will improve Outcome: Progressing Problem: Nutritional: Goal: Dietary intake will improve Outcome: Progressing Problem: Skin Integrity: Goal: Risk for impaired skin integrity will decrease Outcome: Progressing Problem: Health Behavior: Goal: Understanding of discharge needs will improve Outcome: Not Progressing Problem: Lack of Knowledge: Goal: Knowledge of restraints will improve Description: INTERVENTIONS: 1. Educate patient/caregiver on restraints Outcome: Not Progressing Goals: Clinical Goals for the Shift: Q1 VS, Q4 neuro checks, promote comfort and safety, OOBTC. Summary: Q1 VS, Q4 neuro checks, promote comfort and safety, OOBTC. N MARKETING ANALYST * Plan of Care - Aby Toney RN - 06/14/2021 12:38 AM CST Goals: Clinical Goals for the Shift: Q1 VS, Q4 neuro, promote comfort and manage safety Problem: Health Behavior: Goal: Understanding of discharge [...] Outcome: Progressing Problem: Lack of Knowledge: Goal: Knowledge of restraints will improve Description: INTERVENTIONS: 1. Educate patient/caregiver on restraints Outcome: Progressing Problem: Safety - Medical Restraint Goal: Remains free of injury from restraints (Restraint for Interference with Necktie Maker) Description: INTERVENTIONS: 1. Identify and document the criteria for restraint 2. Determine that other, less restrictive measures have been tried or would not be effective beforeapplying the restraint 3. Evaluate the patient's condition at the time of restraint application and continue to monitor patient's condition 4. Inform patient/family regarding the reason for restraint 5. Q2H: Monitor safety checks including skin, circulation, sensory,respiratory, psychosocial status, comfort, nutrition and hydration 6. Ensure safety/first aid measures are in place (i.e. Quick release, suction, crash cart, etc.) Outcome: Progressing Problem: Lack of Knowledge: Goal: Risk factors for ineffective tissue perfusion will decrease Outcome: Progressing Goal: Knowledge of disease or condition will improve Outcome: Progressing Goal: Ability to identify and develop effective coping behavior will improve Outcome: Progressing Problem: Health Behavior: Goal: Identification of resources available to assist in meeting health care needs will improve Outcome: Progressing Problem: Physical Regulation: Goal: Ability to maintain clinical measurements within normal limits will improve Outcome: Progressing Goal: Will regain or maintain usual level of consciousness Outcome: Progressing Problem: Respiratory: Goal: Ability to maintain adequate ventilation will improve Outcome: Progressing Problem: Self-Care: Goal: Ability to perform activities of daily living will improve Outcome: Progressing Problem: Tissue Perfusion: Goal: Signs of adequate cerebral perfusion will increase Outcome: Progressing Goal: Ability to maintain intracranial pressure will improve Outcome: Progressing Problem: Lack of Knowledge: Goal: Knowledge on safety and abstaining from self-injurious behavior will increase Outcome: Progressing N MARKETING ANALYST * Plan of Care - Jemma Steward RN - 06/13/2021 3:46 PM CST Case Management unable to perform initial interview, for discharge planning. Patient and or family unavailable at this time. CM will attempt at a later time. If any discharge planning needs arise, please call covering case assistant. Patient admitted with: BRYN Steward Manager Progressive Care Available from 8a.m.-4:30p.m. For emergency needs from 4:31p.m. - 7:59a.m., please call the link knitting machine operator For weekend/holiday needs from 8:00a.m. - 4:30p.m., please call the Weekend Dividend Deposit Voucher Clerk. N MARKETING ANALYST * Provider Query - Kyler Tavarez - 06/13/2021 2:42 PM CST Specify the respiratory status, and document in the medical record and on the form below. ___Acute Hypoxic Respiratory Failure ___Acute Hypercapnic Respiratory Failure ___Acute on Chronic Hypoxic Respiratory Failure ___Acute on Chronic Hypercapnic Respiratory Failure ___(ARDS) Acute Respiratory Distress Syndrome ___Acute Respiratory Distress _X__Chronic Hypoxic Respiratory Failure ___Chronic Hypercapnic Respiratory Failure ___(COPD) Chronic Obstructive Pulmonary Disease Exacerbation ___(OHS) Obesity Hypoventilation Syndrome ___Hypoxia ___Other, specify below ___Clinically unable to Determine Additional Provider Response: none Clinical Indicators/Treatments: Per the H&P on 06/12/21: Wheezing, suspected COPD # Acute pulmonary insufficiency secondary to altered sensorium -- Nasal trumpet placed this AM per medicine team ? Obstruction -- Recheck ABG -- Start Xopenex nebs scheduled -- RT consult for assessment for cough assist -- Place HHFT for humidification of dry oral mucosa -- HOB elevated, WENCESLAO precautions Face tent O2 @ 8 LPM Respiratory Failure Screening Criteria Acute Respiratory Failure PATIENT DOES NOT NEED TO MEET ALL CRITERIA, INTUBATION IS NOT REQUIRED. Supplemental Oxygen New supplemental O2 greater than or equal to 40 percent (5 liters/minute per nasal cannula) or New oxygen requirement in setting of 1 or more of the below results or vitals, Results or Vitals (1 or more of the following) pCO2 greater than 50 and pH less than 7.35 pO2 at or below 55 mmHg or SpO2 (pulse oximetry) less than 88% on RA pO2 decrease or pCO2 increase by 10 mmHg from baseline if known P/F ratio (pO2/FiO2) less than 300 Other signs and symptoms may include: Tachypnea, dyspnea, shortness of breath, wheezing Air hunger Use of accessory muscles of respiration Inability to speak in full sentences Cyanosis or pallor Anxiety or restlessness Positioning of the patient???s body (for example, tripod breathing) Chronic Respiratory Failure Dependence on continuous (24 hours a day) home O2 or non-invasive mechanical ventilation (BiPAP, AVAPS, etc.) Acute on Chronic Respiratory Failure Exacerbation or decompensation of chronic respiratory failure recognized by any of the following: pCO2 greater than 50 mmHg + pH less than 7.35 Increase in baseline pCO2 (if known) by 10 mmHg or more pO2 less than 55 mmHg or SpO2 less than 88% on patient???s baseline oxygen rate or higher Worsening dyspnea requiring an increase in chronic supplemental oxygen Greater hypoxemia (decreased pO2 or SpO2 from baseline, if known) If provider believes patient has respiratory failure in the absence of above clinical indicators, please document rationale and clinical impression in detail Respiratory Failure References [employer] Hospitalist Feb 2013 Coding Clinics: 3rd Q 1987, p 7 and 2nd Q 1989, p.20 [email or web address] Use of terms such as likely, suspected, possible, or probable (associated with a specific diagnosisthat is being evaluated, monitored, or treated as if it exists) are acceptable and can be coded in the inpatient setting when documented at the time of discharge. This documentation will become part of the patient???s medical record. Sincerely, ALVARO Dasilva, RN, CCDS Clinical Sueding Machine Operator [email or web address] N MARKETING ANALYST * Plan of Care - Deni Lu RRT - 06/13/2021 9:31 AM CST Pt will continue with Cough assisst TX and HHFT. I will assess and evaluate pt throughout the day. N MARKETING ANALYST * Plan of Care - Suyapa Shi RN - 06/12/2021 5:34 PM CST Problem: Nutritional: Goal: Ability to maintain a balanced intake and output will improve Outcome: Progressing Problem: Skin Integrity: Goal: Risk for impaired skin integrity will decrease Outcome: Progressing Problem: Safety - Medical Restraint Goal: Remains free of injury from restraints (Restraint for Interference with Necktie Maker) Description: INTERVENTIONS: 1. Identify and document the criteria for restraint 2. Determine that other, less restrictive measures have been tried or would not be effective beforeapplying the restraint 3. Evaluate the patient's condition at the time of restraint application and continue to monitor patient's condition 4. Inform patient/family regarding the reason for restraint 5. Q2H: Monitor safety checks including skin, circulation, sensory,respiratory, psychosocial status, comfort, nutrition and hydration 6. Ensure safety/first aid measures are in place (i.e. Quick release, suction, crash cart, etc.) Outcome: Progressing Problem: Lack of Knowledge: Goal: Risk factors for ineffective tissue perfusion will decrease Outcome: Progressing Problem: Physical Regulation: Goal: Ability to maintain clinical measurements within normal limits will improve Outcome: Progressing Goals: Clinical Goals for the Shift: q1VS, q1 neuro check, optimze oxygentation, promote comfort Summary: Admitted to [address] NNICU from [address] AT 1110. Bedside report rec'd. Plan of care initiated. N MARKETING ANALYST * Significant Event - Cassie Trent NP - 06/12/2021 3:59 PM GREEN MARKETING ANALYST Alvaro records received and reviewed. Summarized as follows (see paper chart for records): Admitted overnight 06/08-06/09 with concern for syncope as unclear details surrounding fall at time. Ethyl alcohol level 101 on presentation. Encephalopathic and oriented to self only attributed to alcohol use/withdrawal. TSH, ammonia, B12, and folate reportedly wnl (do not have labs available for viewing in [facility]). CT with chronic bilateral lacunar infarcts but no acute findings otherwise initially. Patient became restless, agitated with concern for some visual hallucinations so CIWA protocol initiated and prn librium provided. + Orthostatic hypotension with 24 pt decline in SBP from supine to standing on 06/08 evaluation - given IVF and subsequent BP stable. Eliquis held throughout hospital course. Had dysphagia with difficulty swallowing thin liquids and drowsiness precluded further evaluation - remained NPO except meds crushed in applesauce and IVF. EEG 06/09 reportedly negative for seizures. MRI on 06/11 revealed occipital IVH prompting transfer to [facility]. Per OSH documentation hs daughter reported that at baseline he is keenly alert and capable of having normal conversations. Some report of leg shaking after fall at home. N MARKETING ANALYST * Significant Event - Dianne Thurston MD - 06/12/2021 12:08 PM GREEN MARKETING ANALYST Brief Medicine Note 71 yo M with PMH permanent afib on AC (99% burden on Holter 08/2020), HTN, HLD, HFpEF, COPD, alcohol use disorder admitted following fall. Medicine consulted for tachycardia and concern for alcohol withdrawal. ?? Patient presented to an OSH following a fall with associated LOC and head trauma. This occurred after drinking reported [address] negative for intracranial hemorrhage, but subsequent bMRI notable for small volume intraventricular hemorrhage. He was then transferred to [facility] for further evaluation and management. ?? On arrival, BP 120/71 and normal HR. He has subsequently become more tachycardic with HR 120s and HTNsve with BP 150-170/100s. Labs n/f CMP WNL, Hgb 14.9, plts 137, INR 1.1. CXR unremarkable. Notably, patient with change in mental status and evaluated by neuro ICU fellow. His baseline neuro exam onadmission was 4/5 strength examination throughout, opens eyes to voice, reactive pupils. He was then notably not opening eyes and only localizing to pain. Thought change was possibly 2/2 recent Ativan administration for elevated CIWA. ECG w/afib with RVR. ?? Regarding his cardiac history, he was diagnosed with atrial fibrillation in 2019. TTE 08/2020 with EF 45-50% and underwent a normal nuclear stress test. 48hour Holter s/f 99% atrial fibrillation. He last saw his pharmacovigilance specialist 01/2021 and medications at that time were metoprolol tartrate 100mg BID, lisinopril 40mg daily, and Eliquis 5mg BID. This AM on assessment, patient difficult to arouse. Localized to pain upon sternal rub. Per RN, patient lethargic for entirety of the morning. -Agree with transfer to ICU for somnolence c/f inability to protect airway and for closer monitoring. N MARKETING ANALYST * Significant Event - Prosper Rodrigues MD - 06/12/2021 4:21 AM GREEN MARKETING ANALYST Asked by surgical team to evaluate patient because of change in neuro exam. Patient admitted for trace traumatic subarachnoid hemorrhage with small volume intraventricular hemorrhage. Exam on admission notable for open eyes to voice and briefly regards, strength in DAVID and BLE 4/5. Patient on CIWA protocol and received Ativan for CIWA score 15. Contributors to score include patient being disoriented and poor eye contact, which nurse states was his baseline on admission. He received 2 mg IV Ativan. On my exam, patient resting comfortably in bed. Pupils 2mm and reactive, oriented to his name, does not open eyes to command. Does not follow commands. Localizes to pain with both upper extremities . He did open his eyes slightly to pain stimulus. Low suspicion for patient suffering from acute alcohol withdrawal and suspect exam change secondary to patient being sedated from Ativan. Blood glucose 88. EKG showing a-fibb with RVR (HR 112). Also elevated BP at 161/111. Spoke with patients team on the phone who state these vitals are outside of his goal parameters of MAP < 110 and SBP < 160. Ordered 10 mg IV Labetalol. Primary team updated on the phone. Please feel free to call NNICU triage fellow phone with any further questions/concerns. [phone] Prosper Rodrigues MD Anesthesia Critical Care Fellow, PGY-4 N MARKETING ANALYST N MARKETING ANALYST N MARKETING ANALYST documented in this encounter Plan of Treatment Not on file documented as of this encounter Procedures Procedure Name Priority Date/Time Associated Diagnosis Comments POCT GLUCOSE DEVICE Routine 07/07/2021 5:51 PM CDT POCT GLUCOSE DEVICE Routine 07/07/2021 12:47 PM CDT MAGNESIUM Timed 07/07/2021 11:12 AM CDT POCT GLUCOSE DEVICE Routine 07/07/2021 7:55 AM CDT POCT GLUCOSE DEVICE Routine 07/06/2021 8:39 PM CDT POCT GLUCOSE DEVICE Routine 07/06/2021 6:37 PM CDT POCT GLUCOSE DEVICE Routine 07/06/2021 11:20 AM CDT INFLUENZA A/B, RSV, AND COVID-19 PCR Routine 07/06/2021 10:56 AM CDT POCT GLUCOSE DEVICE Routine 07/06/2021 7:57 AM CDT EGFR Timed 07/05/2021 11:33 PM CDT CBC WITHOUT DIFFERENTIAL Timed 07/05/2021 11:33 PM CDT PHOSPHORUS Timed 07/05/2021 11:33 PM CDT MAGNESIUM Timed 07/05/2021 11:33 PM CDT BASIC METABOLIC PANEL Timed 07/05/2021 11:33 PM CDT POCT GLUCOSE DEVICE Routine 07/05/2021 11:32 PM CDT POCT GLUCOSE DEVICE Routine 07/05/2021 5:47 PM CDT FL MODIFIED BARIUM SWALLOW W VIDEO IP Routine 07/05/2021 2:48 PM CDT POCT GLUCOSE DEVICE Routine 07/05/2021 11:27 AM CDT POCT GLUCOSE DEVICE Routine 07/05/2021 8:04 AM CDT EGFR STAT 07/05/2021 2:19 AM CDT CBC WITHOUT DIFFERENTIAL STAT 07/05/2021 2:19 AM CDT MAGNESIUM STAT 07/05/2021 2:19 AM CDT BASIC METABOLIC PANEL STAT 07/05/2021 2:19 AM CDT POCT GLUCOSE DEVICE Routine 07/04/2021 11:38 PM CDT PEP THERAPY Routine 07/04/2021 8:00 PM CDT ECG 12-LEAD STAT 07/04/2021 7:56 PM CDT POCT GLUCOSE DEVICE Routine 07/04/2021 5:27 PM CDT PEP THERAPY Routine 07/04/2021 3:00 PM CDT FL FLUOROSCOPY < 1 HOUR IP Routine 07/04/2021 11:17 AM CDT INTRAMEDULLARY NAILING FEMUR - ANTEGRADE - INTERTROCHANTERIC 07/04/2021 9:30 AM CDT Closed nondisplaced intertrochanteric fracture of left femur, initial encounter ([facility]) Case Notes Requested By Kirill @ 20:45 EGFR Routine 07/03/2021 10:35 PM CDT PROTIME-INR STAT 07/03/2021 10:35 PM CDT CBC WITHOUT DIFFERENTIAL Routine 07/03/2021 10:35 PM CDT TYPE AND SCREEN STAT 07/03/2021 10:35 PM CDT MAGNESIUM Routine 07/03/2021 10:35 PM CDT BASIC METABOLIC PANEL Routine 07/03/2021 10:35 PM CDT POCT GLUCOSE DEVICE Routine 07/03/2021 10:33 PM CDT PEP THERAPY Routine 07/03/2021 8:00 PM CDT CHEST PHYSIO THERAPY Routine 07/03/2021 8:00 PM CDT XR HIP LEFT W PELVIS 2 OR 3 VIEWS ED Urgent/IP Urgent 07/03/2021 4:42 PM CDT EGFR Routine 07/03/2021 12:08 AM CDT DIFFERENTIAL AUTO Routine 07/03/2021 12:08 AM CDT CBC WITH AUTO DIFFERENTIAL Routine 07/03/2021 12:08 AM CDT MAGNESIUM Routine 07/03/2021 12:08 AM CDT BASIC METABOLIC PANEL Routine 07/03/2021 12:08 AM CDT POCT GLUCOSE DEVICE Routine 07/02/2021 10:09 PM CDT PEP THERAPY Routine 07/02/2021 8:00 PM CDT CHEST PHYSIO THERAPY Routine 07/02/2021 8:00 PM CDT PEP THERAPY Routine 07/02/2021 3:[address] HEAD WO CONTRAST IP Routine 07/02/2021 1:45 PM CDT MRI HIP LEFT WO CONTRAST Pending Discharge 07/02/2021 11:30 AM CDT CHEST PHYSIO THERAPY Routine 07/02/2021 8:00 AM CDT POCT GLUCOSE DEVICE Routine 07/01/2021 10:35 PM CDT PEP THERAPY Routine 07/01/2021 8:49 PM CDT CHEST PHYSIO THERAPY Routine 07/01/2021 8:00 PM CDT POCT GLUCOSE DEVICE Routine 07/01/2021 2:35 PM CDT POCT GLUCOSE DEVICE Routine 07/01/2021 8:54 AM CDT CHEST PHYSIO THERAPY Routine 07/01/2021 8:00 AM CDT POCT GLUCOSE DEVICE Routine 06/30/2021 10:38 PM CDT CHEST PHYSIO THERAPY Routine 06/30/2021 8:00 PM CDT POCT GLUCOSE DEVICE Routine 06/30/2021 6:06 PM CDT GI-TUBE PLACEMENT (LONG TUBE) IP Routine 06/30/2021 3:08 PM CDT PEP THERAPY Routine 06/30/2021 3:00 PM CDT POCT GLUCOSE DEVICE Routine 06/30/2021 11:49 AM CDT PEP THERAPY Routine 06/30/2021 10:00 AM CDT PEP THERAPY Routine 06/30/2021 8:53 AM CDT PEP THERAPY Routine 06/30/2021 8:53 AM CDT PEP THERAPY Routine 06/30/2021 8:53 AM CDT CHEST PHYSIO THERAPY Routine 06/30/2021 8:00 AM CDT POCT GLUCOSE DEVICE Routine 06/30/2021 7:44 AM CDT POCT GLUCOSE DEVICE Routine 06/30/2021 12:37 AM CDT POCT GLUCOSE DEVICE Routine 06/29/2021 11:44 PM CDT POCT GLUCOSE DEVICE Routine 06/29/2021 11:28 PM CDT POCT GLUCOSE DEVICE Routine 06/29/2021 11:13 PM CDT EGFR Routine 06/29/2021 9:17 PM CDT MAGNESIUM Routine 06/29/2021 9:17 PM CDT BASIC METABOLIC PANEL Routine 06/29/2021 9:17 PM CDT CHEST PHYSIO THERAPY Routine 06/29/2021 8:00 PM CDT PEP THERAPY Routine 06/29/2021 11:36 AM CDT PEP THERAPY Routine 06/29/2021 11:36 AM CDT PEP THERAPY Routine 06/29/2021 11:36 AM CDT US CAROTIDS DUPLEX BILATERAL IP Routine 06/29/2021 10:45 AM CDT CHEST PHYSIO THERAPY Routine 06/29/2021 8:00 AM CDT EGFR Routine 06/28/2021 10:24 PM CDT CBC WITHOUT DIFFERENTIAL Routine 06/28/2021 10:24 PM CDT MAGNESIUM Routine 06/28/2021 10:24 PM CDT BASIC METABOLIC PANEL Routine 06/28/2021 10:24 PM CDT INEXSUFFLATOR COUGH MACHINE Routine 06/28/2021 8:00 PM CDT CHEST PHYSIO THERAPY Routine 06/28/2021 8:00 PM CDT INEXSUFFLATOR COUGH MACHINE Routine 06/28/2021 4:44 PM CDT INEXSUFFLATOR COUGH MACHINE Routine 06/28/2021 4:44 PM CDT CHEST PHYSIO THERAPY Routine 06/28/2021 4:44 PM CDT CHEST PHYSIO THERAPY Routine 06/28/2021 4:44 PM CDT EGFR Routine 06/27/2021 9:45 PM CDT CBC WITHOUT DIFFERENTIAL Routine 06/27/2021 9:45 PM CDT MAGNESIUM Routine 06/27/2021 9:45 PM CDT BASIC METABOLIC PANEL Routine 06/27/2021 9:45 PM CDT CHEST PHYSIO THERAPY Routine 06/27/2021 8:00 AM CDT EGFR Routine 06/26/2021 11:47 PM CDT CBC WITHOUT DIFFERENTIAL Routine 06/26/2021 11:47 PM CDT MAGNESIUM Routine 06/26/2021 11:47 PM CDT BASIC METABOLIC PANEL Routine 06/26/2021 11:47 PM CDT INEXSUFFLATOR COUGH MACHINE Routine 06/26/2021 6:00 PM CDT FL MODIFIED BARIUM SWALLOW W VIDEO IP Routine 06/26/2021 1:09 PM CDT COTTAGE CHEESE MAKER EVALUATE AND TREAT VIDEOFLUOROSCOPIC SWALLOW STUDY Routine 06/26/2021 1:02 PM CDT CHEST PHYSIO THERAPY Routine 06/26/2021 8:00 AM CDT INEXSUFFLATOR COUGH MACHINE Routine 06/26/2021 6:00 AM CDT INEXSUFFLATOR COUGH MACHINE Routine 06/25/2021 11:04 PM CDT EGFR Routine 06/25/2021 7:56 PM CDT CBC WITHOUT DIFFERENTIAL Routine 06/25/2021 7:56 PM CDT MAGNESIUM Routine 06/25/2021 7:56 PM CDT BASIC METABOLIC PANEL Routine 06/25/2021 7:56 PM CDT CHEST PHYSIO THERAPY Routine 06/25/2021 11:23 AM CDT EGFR Routine 06/25/2021 2:00 AM CDT BASIC METABOLIC PANEL Routine 06/25/2021 2:00 AM CDT EGFR Timed 06/24/2021 7:44 PM CDT CBC WITHOUT DIFFERENTIAL Routine 06/24/2021 7:44 PM CDT PHOSPHORUS Timed 06/24/2021 7:44 PM CDT MAGNESIUM Timed 06/24/2021 7:44 PM CDT COMPREHENSIVE METABOLIC PANEL Timed 06/24/2021 7:44 PM CDT INEXSUFFLATOR COUGH MACHINE Routine 06/24/2021 8:00 AM CDT CHEST PHYSIO THERAPY Routine 06/24/2021 8:00 AM CDT EGFR Routine 06/23/2021 9:50 PM CDT CBC WITHOUT DIFFERENTIAL Routine 06/23/2021 9:50 PM CDT MAGNESIUM Routine 06/23/2021 9:50 PM CDT BASIC METABOLIC PANEL Routine 06/23/2021 9:50 PM CDT CHEST PHYSIO THERAPY Routine 06/23/2021 8:00 PM CDT INEXSUFFLATOR COUGH MACHINE Routine 06/23/2021 2:00 PM CDT CHEST PHYSIO THERAPY Routine 06/23/2021 2:00 PM CDT INEXSUFFLATOR COUGH MACHINE Routine 06/23/2021 11:09 AM CDT INEXSUFFLATOR COUGH MACHINE Routine 06/23/2021 11:09 AM CDT CHEST PHYSIO THERAPY Routine 06/23/2021 11:09 AM CDT CHEST PHYSIO THERAPY Routine 06/23/2021 11:09 AM CDT EGFR Routine 06/22/2021 8:38 PM CDT CBC WITHOUT DIFFERENTIAL Routine 06/22/2021 8:38 PM CDT MAGNESIUM Routine 06/22/2021 8:38 PM CDT BASIC METABOLIC PANEL Routine 06/22/2021 8:38 PM CDT CHEST PHYSIO THERAPY Routine 06/22/2021 10:36 AM CDT INEXSUFFLATOR COUGH MACHINE Routine 06/21/2021 11:00 PM CDT EGFR Routine 06/21/2021 9:06 PM CDT CBC WITHOUT DIFFERENTIAL Routine 06/21/2021 9:06 PM CDT MAGNESIUM Routine 06/21/2021 9:06 PM CDT BASIC METABOLIC PANEL Routine 06/21/2021 9:06 PM CDT INEXSUFFLATOR COUGH MACHINE Routine 06/21/2021 5:01 PM CDT CHEST PHYSIO THERAPY Routine 06/21/2021 4:14 PM CDT INEXSUFFLATOR COUGH MACHINE Routine 06/21/2021 5:00 AM CDT INEXSUFFLATOR COUGH MACHINE Routine 06/20/2021 11:00 PM CDT EGFR Routine 06/20/2021 9:25 PM CDT CBC WITHOUT DIFFERENTIAL Routine 06/20/2021 9:25 PM CDT MAGNESIUM Routine 06/20/2021 9:25 PM CDT BASIC METABOLIC PANEL Routine 06/20/2021 9:25 PM CDT INEXSUFFLATOR COUGH MACHINE Routine 06/20/2021 7:39 PM CDT INEXSUFFLATOR COUGH MACHINE Routine 06/20/2021 7:39 PM CDT INEXSUFFLATOR COUGH MACHINE Routine 06/20/2021 7:39 PM CDT INEXSUFFLATOR COUGH MACHINE Routine 06/20/2021 7:39 PM CDT BLOOD GAS, ARTERIAL STAT 06/20/2021 8:12 AM CDT EGFR Routine 06/19/2021 8:26 PM CDT CBC WITHOUT DIFFERENTIAL Routine 06/19/2021 8:26 PM CDT MAGNESIUM Routine 06/19/2021 8:26 PM CDT BASIC METABOLIC PANEL Routine 06/19/2021 8:26 PM CDT INEXSUFFLATOR COUGH MACHINE Routine 06/19/2021 3:00 PM CDT INEXSUFFLATOR COUGH MACHINE Routine 06/19/2021 12:07 PM CDT INEXSUFFLATOR COUGH MACHINE Routine 06/19/2021 12:07 PM CDT XR ABDOMEN AP 1 VIEW ED Urgent/IP Urgent 06/19/2021 4:38 AM CDT EGFR Timed 06/18/2021 10:02 PM CDT CBC WITHOUT DIFFERENTIAL Routine 06/18/2021 10:02 PM CDT PHOSPHORUS Timed 06/18/2021 10:02 PM CDT MAGNESIUM Timed 06/18/2021 10:02 PM CDT COMPREHENSIVE METABOLIC PANEL Timed 06/18/2021 10:02 PM CDT XR FEMUR LEFT 2 OR MORE VIEWS Today 06/18/2021 6:58 PM CDT XR HIP LEFT W PELVIS 2 OR 3 VIEWS Today 06/18/2021 6:[address] PELVIS W CONTRAST ED Urgent/IP Urgent 06/17/2021 10:57 PM GREEN MARKETING ANALYST EGFR Routine 06/17/2021 10:03 PM GREEN MARKETING ANALYST CBC WITHOUT DIFFERENTIAL Routine 06/17/2021 10:03 PM GREEN MARKETING ANALYST PHOSPHORUS Timed 06/17/2021 10:03 PM GREEN MARKETING ANALYST MAGNESIUM Timed 06/17/2021 10:03 PM GREEN MARKETING ANALYST BLOOD GAS, ARTERIAL Routine 06/17/2021 10:03 PM GREEN MARKETING ANALYST BASIC METABOLIC PANEL Routine 06/17/2021 10:03 PM GREEN MARKETING ANALYST XR CHEST 1 VIEW IP Routine 06/17/2021 9:20 PM GREEN MARKETING ANALYST US SCROTUM IP Routine 06/17/2021 7:13 PM GREEN MARKETING ANALYST AEROBIC AND ANAEROBIC CULTURE AND GRAM STAIN Routine 06/17/2021 1:47 PM GREEN MARKETING ANALYST EGFR Timed 06/17/2021 8:17 AM GREEN MARKETING ANALYST PHOSPHORUS Timed 06/17/2021 8:17 AM GREEN MARKETING ANALYST MAGNESIUM Timed 06/17/2021 8:17 AM GREEN MARKETING ANALYST BASIC METABOLIC PANEL Timed 06/17/2021 8:17 AM GREEN MARKETING ANALYST CALCIUM, IONIZED STAT 06/16/2021 11:47 PM GREEN MARKETING ANALYST BLOOD GAS, ARTERIAL Routine 06/16/2021 10:24 PM GREEN MARKETING ANALYST EGFR Routine 06/16/2021 9:35 PM GREEN MARKETING ANALYST CBC WITHOUT DIFFERENTIAL Routine 06/16/2021 9:35 PM GREEN MARKETING ANALYST PHOSPHORUS Timed 06/16/2021 9:35 PM GREEN MARKETING ANALYST MAGNESIUM Timed 06/16/2021 9:35 PM GREEN MARKETING ANALYST BASIC METABOLIC PANEL Routine 06/16/2021 9:35 PM GREEN MARKETING ANALYST XR CHEST 1 VIEW IP Routine 06/16/2021 9:27 PM GREEN MARKETING ANALYST AEROBIC CULTURE AND GRAM STAIN Routine 06/16/2021 6:48 PM GREEN MARKETING ANALYST EGFR Timed 06/16/2021 9:02 AM GREEN MARKETING ANALYST PHOSPHORUS Timed 06/16/2021 9:02 AM GREEN MARKETING ANALYST MAGNESIUM Timed 06/16/2021 9:02 AM GREEN MARKETING ANALYST BASIC METABOLIC PANEL Timed 06/16/2021 9:02 AM GREEN MARKETING ANALYST POTASSIUM, WHOLE BLOOD Routine 10:34 PM GREEN MARKETING ANALYST CBC WITHOUT DIFFERENTIAL Routine 06/15/2021 10:34 PM GREEN MARKETING ANALYST EGFR Routine 06/15/2021 8:57 PM GREEN MARKETING ANALYST PHOSPHORUS Timed 06/15/2021 8:57 PM GREEN MARKETING ANALYST MAGNESIUM Timed 06/15/2021 8:57 PM GREEN MARKETING ANALYST BASIC METABOLIC PANEL Routine 06/15/2021 8:57 PM GREEN MARKETING ANALYST XR CHEST 1 VIEW IP Routine 06/15/2021 8:08 PM GREEN MARKETING ANALYST EGFR Timed 06/15/2021 8:00 AM GREEN MARKETING ANALYST PHOSPHORUS Timed 06/15/2021 8:00 AM GREEN MARKETING ANALYST MAGNESIUM Timed 06/15/2021 8:00 AM GREEN MARKETING ANALYST BASIC METABOLIC PANEL Timed 06/15/2021 8:00 AM GREEN MARKETING ANALYST EEG Routine 06/15/2021 7:40 AM GREEN MARKETING ANALYST BLOOD GAS, ARTERIAL STAT 06/15/2021 4:22 AM GREEN MARKETING ANALYST INTUBATION Routine 06/15/2021 3:57 AM GREEN MARKETING ANALYST Intraventricular hemorrhage (CMS/HCC) (HCC) CT HEAD WO CONTRAST Critical/Life- Threatening 06/15/2021 3:17 AM GREEN MARKETING ANALYST XR CHEST 1 VIEW Critical/Life- Threatening 06/15/2021 3:08 AM GREEN MARKETING ANALYST XR CHEST 1 VIEW ED Urgent/IP Urgent 06/15/2021 1:43 AM GREEN MARKETING ANALYST BLOOD GAS, ARTERIAL STAT 06/15/2021 1:12 AM GREEN MARKETING ANALYST EGFR Routine 06/14/2021 9:38 PM GREEN MARKETING ANALYST CBC WITHOUT DIFFERENTIAL Routine 06/14/2021 9:38 PM GREEN MARKETING ANALYST PHOSPHORUS Timed 06/14/2021 9:38 PM GREEN MARKETING ANALYST MAGNESIUM Timed 06/14/2021 9:38 PM GREEN MARKETING ANALYST BASIC METABOLIC PANEL Routine 06/14/2021 9:38 PM GREEN MARKETING ANALYST US VEIN DUPLEX LOWER EXTREMITY BILATERAL COMPLETE IP Routine 06/14/2021 5:35 PM GREEN MARKETING ANALYST EGFR Timed 06/14/2021 8:56 AM GREEN MARKETING ANALYST BLOOD CULTURE Routine 06/14/2021 8:56 AM GREEN MARKETING ANALYST BLOOD CULTURE Routine 06/14/2021 8:56 AM GREEN MARKETING ANALYST PHOSPHORUS Timed 06/14/2021 8:56 AM GREEN MARKETING ANALYST MAGNESIUM Timed 06/14/2021 8:56 AM GREEN MARKETING ANALYST BASIC METABOLIC PANEL Timed 06/14/2021 8:56 AM GREEN MARKETING ANALYST MRI BRAIN W WO CONTRAST ED Urgent/IP Urgent 06/14/2021 2:42 AM GREEN MARKETING ANALYST EGFR STAT 06/14/2021 12:52 AM GREEN MARKETING ANALYST PHOSPHORUS STAT 06/14/2021 12:52 AM GREEN MARKETING ANALYST MAGNESIUM STAT 06/14/2021 12:52 AM GREEN MARKETING ANALYST BASIC METABOLIC PANEL STAT 06/14/2021 12:52 AM GREEN MARKETING ANALYST ECG 12-LEAD STAT 06/13/2021 11:38 PM GREEN MARKETING ANALYST EGFR STAT 06/13/2021 10:52 PM GREEN MARKETING ANALYST CRITICAL RESULT CALLBACK CHEMISTRY STAT 06/13/2021 10:52 PM GREEN MARKETING ANALYST BASIC METABOLIC PANEL STAT 06/13/2021 10:52 PM GREEN MARKETING ANALYST INEXSUFFLATOR COUGH MACHINE Routine 06/13/2021 9:00 PM GREEN MARKETING ANALYST CBC WITHOUT DIFFERENTIAL Routine 06/13/2021 8:48 PM GREEN MARKETING ANALYST TRANSTHORACIC ECHO (TTE) COMPLETE W DOPPLER/CF W CONTRAST W BUBBLE STAT 06/13/2021 4:49 PM GREEN MARKETING ANALYST POTASSIUM, WHOLE BLOOD STAT 2:26 PM GREEN MARKETING ANALYST CONTINUOUS VIDEO EEG Routine 06/13/2021 1:58 PM GREEN MARKETING ANALYST INEXSUFFLATOR COUGH MACHINE Routine 06/13/2021 1:00 PM GREEN MARKETING ANALYST EGFR STAT 06/13/2021 12:57 PM GREEN MARKETING ANALYST DIFFERENTIAL AUTO STAT 06/13/2021 12:57 PM GREEN MARKETING ANALYST CALCIUM, IONIZED STAT 06/13/2021 12:57 PM GREEN MARKETING ANALYST CBC WITH AUTO DIFFERENTIAL STAT 06/13/2021 12:57 PM GREEN MARKETING ANALYST BASIC METABOLIC PANEL STAT 06/13/2021 12:57 PM GREEN MARKETING ANALYST XR CHEST 1 VIEW ED Urgent/IP Urgent 06/13/2021 11:26 AM GREEN MARKETING ANALYST EGFR STAT 06/13/2021 11:08 AM GREEN MARKETING ANALYST CBC WITHOUT DIFFERENTIAL STAT 06/13/2021 11:08 AM GREEN MARKETING ANALYST AMMONIA STAT 06/13/2021 11:08 AM GREEN MARKETING ANALYST BASIC METABOLIC PANEL STAT 06/13/2021 11:08 AM GREEN MARKETING ANALYST INEXSUFFLATOR COUGH MACHINE Routine 06/13/2021 9:00 AM GREEN MARKETING ANALYST INEXSUFFLATOR COUGH MACHINE Routine 06/12/2021 9:00 PM GREEN MARKETING ANALYST INEXSUFFLATOR COUGH MACHINE Routine 06/12/2021 5:01 PM GREEN MARKETING ANALYST EGFR Routine 06/12/2021 4:34 PM GREEN MARKETING ANALYST HIV 1/2 ANTIBODY PLUS P24 ANTIGEN Routine 06/12/2021 4:34 PM GREEN MARKETING ANALYST COPPER, SERUM Routine 06/12/2021 4:34 PM GREEN MARKETING ANALYST HEPATITIS PANEL, ACUTE Routine 4:34 PM GREEN MARKETING ANALYST RPR Routine 06/12/2021 4:34 PM GREEN MARKETING ANALYST CBC WITHOUT DIFFERENTIAL Routine 06/12/2021 4:34 PM GREEN MARKETING ANALYST VITAMIN B1 Routine 06/12/2021 4:34 PM GREEN MARKETING ANALYST MAGNESIUM Routine 06/12/2021 4:34 PM GREEN MARKETING ANALYST FOLATE Routine 06/12/2021 4:34 PM GREEN MARKETING ANALYST VITAMIN B12 Routine 06/12/2021 4:34 PM GREEN MARKETING ANALYST BASIC METABOLIC PANEL Routine 06/12/2021 4:34 PM GREEN MARKETING ANALYST EEG Routine 06/12/2021 3:25 PM GREEN MARKETING ANALYST INEXSUFFLATOR COUGH MACHINE Routine 06/12/2021 2:42 PM GREEN MARKETING ANALYST INEXSUFFLATOR COUGH MACHINE Routine 06/12/2021 2:42 PM GREEN MARKETING ANALYST INEXSUFFLATOR COUGH MACHINE Routine 06/12/2021 2:42 PM GREEN MARKETING ANALYST INEXSUFFLATOR COUGH MACHINE Routine 06/12/2021 2:42 PM GREEN MARKETING ANALYST INEXSUFFLATOR COUGH MACHINE Routine 06/12/2021 2:42 PM GREEN MARKETING ANALYST URINALYSIS AND REFLEX TO MICROSCOPIC AND CULTURE Routine 06/12/2021 2:36 PM GREEN MARKETING ANALYST URINALYSIS, MICROSCOPIC ONLY Routine 06/12/2021 2:36 PM GREEN MARKETING ANALYST EGFR STAT 06/12/2021 1:31 PM GREEN MARKETING ANALYST DIFFERENTIAL AUTO STAT 06/12/2021 1:31 PM GREEN MARKETING ANALYST THYROID FUNCTION CASCADE STAT 06/12/2021 1:31 PM GREEN MARKETING ANALYST CBC WITH AUTO DIFFERENTIAL STAT 06/12/2021 1:31 PM GREEN MARKETING ANALYST PHOSPHORUS STAT 06/12/2021 1:31 PM GREEN MARKETING ANALYST MAGNESIUM STAT 06/12/2021 1:31 PM GREEN MARKETING ANALYST HEMOGLOBIN A1C STAT 06/12/2021 1:31 PM GREEN MARKETING ANALYST LIPID PANEL STAT 06/12/2021 1:31 PM GREEN MARKETING ANALYST COMPREHENSIVE METABOLIC PANEL STAT 06/12/2021 1:31 PM GREEN MARKETING ANALYST XR ABDOMEN AP 1 VIEW ED Urgent/IP Urgent 06/12/2021 12:41 PM GREEN MARKETING ANALYST XR CHEST 1 VIEW ED Urgent/IP Urgent 06/12/2021 12:18 PM GREEN MARKETING ANALYST COVID-19 CORONAVIRUS RNA Routine 06/12/2021 12:14 PM GREEN MARKETING ANALYST ECG 12-LEAD Routine 06/12/2021 12:13 PM GREEN MARKETING ANALYST CT HEAD WO CONTRAST ED Urgent/IP Urgent 06/12/2021 12:11 PM GREEN MARKETING ANALYST EGFR STAT 06/12/2021 11:44 AM GREEN MARKETING ANALYST DIFFERENTIAL AUTO STAT 06/12/2021 11:44 AM GREEN MARKETING ANALYST CBC WITH AUTO DIFFERENTIAL STAT 06/12/2021 11:44 AM GREEN MARKETING ANALYST TYPE AND SCREEN STAT 06/12/2021 11:44 AM GREEN MARKETING ANALYST PHOSPHORUS STAT 06/12/2021 11:44 AM GREEN MARKETING ANALYST MAGNESIUM STAT 06/12/2021 11:44 AM GREEN MARKETING ANALYST BLOOD GAS, ARTERIAL STAT 06/12/2021 11:44 AM GREEN MARKETING ANALYST COMPREHENSIVE METABOLIC PANEL STAT 06/12/2021 11:44 AM GREEN MARKETING ANALYST POCT GLUCOSE DEVICE Routine 06/12/2021 11:11 AM GREEN MARKETING ANALYST ARTERIAL BLOOD GAS W/LACTATE Routine 06/12/2021 10:53 AM GREEN MARKETING ANALYST BLOOD GAS, ARTERIAL STAT 06/12/2021 9:59 AM GREEN MARKETING ANALYST POCT GLUCOSE DEVICE Routine 06/12/2021 4:12 AM GREEN MARKETING ANALYST ECG 12-LEAD Routine 06/12/2021 4:11 AM GREEN MARKETING ANALYST XR CHEST 1 VIEW ED Urgent/IP Urgent 06/11/2021 10:20 PM GREEN MARKETING ANALYST URINALYSIS AND REFLEX TO MICROSCOPIC AND CULTURE STAT 06/11/2021 10:02 PM GREEN MARKETING ANALYST CT HEAD WO CONTRAST ED Urgent/IP Urgent 06/11/2021 9:23 PM GREEN MARKETING ANALYST EGFR STAT 06/11/2021 8:29 PM GREEN MARKETING ANALYST DIFFERENTIAL AUTO STAT 06/11/2021 8:29 PM GREEN MARKETING ANALYST CBC WITH AUTO DIFFERENTIAL STAT 06/11/2021 8:29 PM GREEN MARKETING ANALYST APTT STAT 06/11/2021 8:29 PM GREEN MARKETING ANALYST PROTIME-INR STAT 06/11/2021 8:29 PM GREEN MARKETING ANALYST TYPE AND SCREEN STAT 06/11/2021 8:29 PM GREEN MARKETING ANALYST BASIC METABOLIC PANEL STAT 06/11/2021 8:29 PM GREEN MARKETING ANALYST NEURO CT MR OUTSIDE CONSULT Routine 06/11/2021 7:53 PM GREEN MARKETING ANALYST Diagnosis unknown NEURO CT MR OUTSIDE CONSULT Routine 06/11/2021 7:52 PM GREEN MARKETING ANALYST Diagnosis unknown ECG 12-LEAD STAT 06/11/2021 7:45 PM GREEN MARKETING ANALYST documented in this encounter Results * POCT glucose (07/07/2021 5:51 PM CDT) Glucose, POC 105 70 - 199 mg/dL [facility] Blood 07/07/2021 5:51 PM CDT 07/07/2021 5:51 PM CDT us Darrel Wolf MD LAB POCT ORDERABLES - DEVICE Final Result Performing Organization Address City/[facility]/ZIP Co de Phone Number [facility] [place] [address] * POCT glucose (07/07/2021 12:47 PM CDT) Glucose, POC 160 70 - 199 mg/dL [facility] Blood 07/07/2021 12:4 7 PM CDT 07/07/2021 12:47 PM CDT us Darrel Wolf MD LAB POCT ORDERABLES - DEVICE Final Result Performing Organization Address City/[facility]/ZIP Co de Phone Number [facility] [place] [address] * Magnesium (07/07/2021 11:12 AM CDT) Pathologist [facility] Magnesium 1.7 1.4 - 2.5 mg/dL [facility] Blood 07/07/2021 11:1 2 AM CDT 07/07/2021 11:40 AM CDT us Julieta So NP LAB BLOOD ORDERABLES Fi nal Result Performing Organization Address City/[facility]/ZIP Co de Phone Number [facility] [place] [address] * POCT glucose (07/07/2021 7:55 AM CDT) Glucose, POC 103 70 - 199 mg/dL [facility] Blood 07/07/2021 7:55 AM CDT 07/07/2021 7:55 AM CDT Darrel Wolf MD LAB POCT ORDERABLES - DEVICE Final Result Performing Organization Address City/[facility]/ZIP Co de Phone Number [facility] Department [place] [address] * POCT glucose (07/06/2021 8:39 PM CDT) Glucose, POC 170 70 - 199 mg/dL [facility] Blood 07/06/2021 8:39 PM CDT 07/06/2021 8:39 PM CDT Darrel Wolf MD LAB POCT ORDERABLES - DEVICE Final Result Performing Organization Address City/[facility]/ZIP Co de Phone Number [facility] [place] [address] * POCT glucose (07/06/2021 6:37 PM CDT) Glucose, POC 134 70 - 199 mg/dL [facility] Blood 07/06/2021 6:37 PM CDT 07/06/2021 6:37 PM CDT Darrel Wolf MD LAB POCT ORDERABLES - DEVICE Final Result Performing Organization Address City/[facility]/ZIP Co de Phone Number [facility] [place] [address] * POCT glucose (07/06/2021 11:20 AM CDT) Glucose, POC 125 70 - 199 mg/dL [facility] Blood 07/06/2021 11:2 0 AM CDT 07/06/2021 11:20 AM CDT us Darrel Wolf MD LAB POCT ORDERABLES - DEVICE Final Result [facility] [address] Department [place] [address] * Influenza A/B, RSV, and COVID-19 PCR Nasopharyngeal (07/06/2021 10:56 AM CDT) COVID-19 RNA Negative Negative [facility] Influenza A RNA Negative Negative [facility] Influenza B RNA Negative Negative [facility] RSV RNA Negative Negative [facility] Comment: Interpretive data: Testing performed by [facility] ([phone]). This test is performed using the [employer] Xpert Xpress CoV-2/Flu/RSV plus assay. This is a multiplex, real-time reverse transcriptase PCR assay intended for the qualitative detection of nucleic acid from SARS-CoV-2, influenza A, influenza B, and respiratory syncytial virus. This assay has been reviewed by the FDA for Emergency Use Authorization (EUA). The performance characteristics have been verified by the [facility]. Results must be considered in the clinical context, and a negative result does not rule out infection. Interpretive Data last revised 2021. First COVID-19 test? No [facility] Employeed in healthcare? No [facility] Group care resident? No [facility] Hospitalized? Yes [facility] Is patient in ICU? No [facility] Symptomatic as defined by CDC? No [facility] Nasopharyngeal 07/06/2021 10 :56 AM CDT 07/06/2021 1:03 PM CDT Narrative [facility] - 07/06/2021 2:49 PM CDT Reason for testing?->Placement in post-acute care setting Known exposure to confirmed or suspected COVID-19 case?->No Malu C. Rodriguez TEXTILE MACHINE MAINTENANCE MECHANIC LAB MICROBIOLOGY - GENERAL ORD ERABLES Final Result Performing Organization Address City/[facility] Co de Phone Number [facility] [address] Department [place] [address] * POCT glucose (07/06/2021 7:57 AM CDT) [facility] Glucose, POC 107 70 - 199 mg/dL [facility] Blood 07/06/2021 7:57 AM CDT 07/06/2021 7:57 AM CDT us Darrel Wolf MD LAB POCT ORDERABLES - DEVICE Final Result Performing Organization Address [facility] de Phone Number [facility] Department [place] [address] * eGFR (07/05/2021 11:33 PM CDT) [facility] eGFR >90 90 - 130 mL/min/1. 73 m2 [facility] Comment: Interpretive Data Reference Interval [...] interpretive data was last reviewed 2021. Blood 07/05/2021 11:3 3 PM CDT 07/05/2021 11:47 PM CDT Troy Nguyen MD LAB BLOOD ORDERABLES Final Result [facility] [place] [address] * Phosphorus (07/05/2021 11:33 PM CDT) Phosphorus, pl 3.0 2.3 - 4.5 mg/dL [facility] Blood 07/05/2021 11:3 3 PM CDT 07/05/2021 11:46 PM CDT us Troy Nguyen MD LAB BLOOD ORDERABLES Final Result Performing Organization Address [facility] Co de Phone Number [facility] [place] [address] * Magnesium (07/05/2021 11:33 PM CDT) Pathologist [facility] Magnesium 1.6 1.4 - 2.5 mg/dL [facility] Blood 07/05/2021 11:3 3 PM CDT 07/05/2021 11:46 PM CDT Troy Nguyen MD LAB BLOOD ORDERABLES Final Result Performing Organization Address City/[facility] Co de Phone Number [facility] [employer] [place], [place] [id number] * (ABNORMAL) CBC without differential (07/05/2021 11:33 PM CDT) WBC 6.3 3.8 - 9.9 K/cumm [facility] Hgb 9.4(L) 13.0 - 17.5 g/dL [facility] Hct 27.3(L) 38.9 - 50.3 % [facility] Plt 149(L) 150 - 400 K/cumm [facility] MPV 10.7 9.1 - 12.3 fL [facility] RBC 2.75(L) 4.30 - 5.80 M/cumm [facility] MCV 99.3(H) 81.3 - 96.4 fL [facility] MCH 34.2(H) 27.1 - 33.3 pg [facility] MCHC 34.4 32.3 - 35.7 g/dL [facility] RDW CV 12.5 11.1 - 14.9 % [facility] RDW SD 45.0 35.7 - 48.1 fL [facility] NRBC abs 0.00 0.00 - 0.01 K/cumm [facility] Blood 07/05/2021 11:3 3 PM CDT 07/05/2021 11:47 PM CDT us Troy Nguyen MD LAB BLOOD ORDERABLES Final Result [facility] [address] Department [place] [address] * (ABNORMAL) Basic metabolic panel (07/05/2021 11:33 PM CDT) Sodium 138 135 - 145 mmol/L [facility] Potassium, pl 4.2 3.3 - 4.9 mmol/L [facility] Chloride 107 97 - 110 mmol/L [facility] CO2 27 22 - 32 mmol/L [facility] Anion gap 4 2 - 15 mmol/L [facility] BUN 13 8 - 25 mg/dL [facility] Creatinine 0.79(L) 0.80 - 1.30 mg/dL [facility] Glucose 104 70 - 199 mg/dL [facility] Comment: Interpretive Data Fasting glucose [...] 2017. Calcium 8.9 8.5 - 10.3 mg/dL [facility] Blood 07/05/2021 11:3 3 PM CDT 07/05/2021 11:47 PM CDT us Troy Nguyen MD LAB BLOOD ORDERABLES Final Result Performing Organization Address City/[facility] Co de Phone Number [facility] Department [place] [address] * POCT glucose (07/05/2021 11:32 PM CDT) Glucose, POC 111 70 - 199 mg/dL [facility] Blood 07/05/2021 11:3 2 PM CDT 07/05/2021 11:32 PM CDT us Darrel Wolf MD LAB POCT ORDERABLES - DEVICE Final Result Performing Organization Address [facility] Co de Phone Number [facility] Department [place] [address] * POCT glucose (07/05/2021 5:47 PM CDT) Glucose, POC 99 70 - 199 mg/dL [facility] Blood 07/05/2021 5:47 PM CDT 07/05/2021 5:47 PM CDT us Darrel Wolf MD LAB POCT ORDERABLES - DEVICE Final Result Performing Organization Address [facility] Co de Phone Number [facility] Department [place] [address] * FL Modified Barium Swallow W Video (07/05/2021 2:48 PM CDT) Anatomical Region Laterality Modality Head and Neck N/A Computed Radiogr aphy 07/05/2021 3:28 PM CDT Impressions 07/05/2021 4:40 PM CDT The swallowing mechanism is abnormal; see above comments. Please refer to the Speech Pathology procedure note for safe swallow recommendations as well as additional information regarding the oral-pharyngeal swallow function, plan of care, and recommended follow up. Dictated by: Amish Boudreaux MD The radiology attending physician has personally reviewed this study, and had reviewed and/or edited this written report and agrees with it. Electronically signed by: Chacha Pozo M.D. Narrative 07/05/2021 4:40 PM CDT EXAMINATION: MODIFIED BARIUM SWALLOW HISTORY: Dysphagia. TECHNIQUE: This procedure was completed in conjunction with a Speech Language Pathologist. The patient was given barium of multiple different consistencies to swallow. Video fluoroscopy was employed during the exam. FINDINGS: Oral-pharyngeal swallow function is mild to moderately impaired. Penetration: Yes There is penetration of thin liquid. Penetration is not sensed. The penetrated material is not cleared. Aspiration: Yes There is aspiration of thin liquid. Aspiration ??is not sensed. The aspirated material is not cleared. Residue:Yes There is oral-pharyngeal residue of thin liquid. Residue is not sensed. The residual material ??is cleared. Other comments: None Procedure Note Chacha Pozo MD - 07/05/2021 EXAMINATION: MODIFIED BARIUM SWALLOW HISTORY: Dysphagia. TECHNIQUE: This procedure was completed in conjunction with a Speech Language Pathologist. The patient was given barium of multiple different consistencies to swallow. Video fluoroscopy was employed during the exam. FINDINGS: Oral-pharyngeal swallow function is mild to moderately impaired. Penetration: Yes There is penetration of thin liquid. Penetration is not sensed. The penetrated material is not cleared. Aspiration: Yes There is aspiration of thin liquid. Aspiration is not sensed. The aspirated material is not cleared. Residue:Yes There is oral-pharyngeal residue of thin liquid. Residue is not sensed. The residual material is cleared. Other comments: None IMPRESSION: The swallowing mechanism is abnormal; see above comments. Please refer to the Speech Pathology procedure note for safe swallow recommendations as well as additional information regarding the oral-pharyngeal swallow function, plan of care, and recommended follow up. Dictated by: Amish Boudreaux MD The radiology attending physician has personally reviewed this study, and had reviewed and/or edited this written report and agrees with it. Electronically signed by: Chacha Pozo M.D. Elizabeth Persaud TEXTILE MACHINE MAINTENANCE MECHANIC IMG FLUOROSCOPY PROCEDURE S Final Result * POCT glucose (07/05/2021 11:27 AM CDT) Glucose, POC 144 70 - 199 mg/dL [facility] Blood 07/05/2021 11:2 7 AM CDT 07/05/2021 11:27 AM CDT Darrel Wolf MD LAB POCT ORDERABLES - DEVICE Final Result Performing Organization Address City/[facility] Co de Phone Number [facility] [place] [address] * POCT glucose (07/05/2021 8:04 AM CDT) [facility] Glucose, POC 91 70 - 199 mg/dL [facility] Blood 07/05/2021 8:04 AM CDT 07/05/2021 8:04 AM CDT Darrel Wolf MD LAB POCT ORDERABLES - DEVICE Final Result Performing Organization Address [facility] de Phone Number [facility] [place] [address] * eGFR (07/05/2021 2:19 AM CDT) [facility] eGFR >90 90 - 130 mL/min/1. 73 m2 [facility] Comment: Interpretive Data Reference Interval [...] interpretive data was last reviewed 2021. Blood 07/05/2021 2:19 AM CDT 07/05/2021 2:37 AM CDT Vy Munoz NP LAB BLOOD ORDERA BLES Final Result Performing Organization Address [facility] de Phone Number [facility] [place] [address] * Magnesium (07/05/2021 2:19 AM CDT) Magnesium 1.5 1.4 - 2.5 mg/dL [facility] Blood 07/05/2021 2:19 AM CDT 07/05/2021 2:37 AM CDT Vy Munoz NP LAB BLOOD ORDERA BLES Final Result Performing Organization Address [facility] de Phone Number [facility] Department [place] [address] * (ABNORMAL) CBC without differential (07/05/2021 2:19 AM CDT) [facility] WBC 6.7 3.8 - 9.9 K/cumm [facility] Hgb 10.3(L) 13.0 - 17.5 g/dL [facility] Hct 29.8(L) 38.9 - 50.3 % [facility] Plt 140(L) 150 - 400 K/cumm [facility] MPV 10.4 9.1 - 12.3 fL [facility] RBC 2.98(L) 4.30 - 5.80 M/cumm [facility] MCV 100.0(H) 81.3 - 96.4 fL [facility] MCH 34.6(H) 27.1 - 33.3 pg [facility] MCHC 34.6 32.3 - 35.7 g/dL [facility] RDW CV 12.6 11.1 - 14.9 % [facility] RDW SD 45.2 35.7 - 48.1 fL [facility] [facility] NRBC abs 0.00 0.00 - 0.01 K/cumm [facility] Blood 07/05/2021 2:19 AM CDT 07/05/2021 2:36 AM CDT Vy Munoz NP LAB BLOOD ORDERA BLES Final Result [facility] [place] [address] * Basic metabolic panel (07/05/2021 2:19 AM CDT) [facility] Sodium 140 135 - 145 mmol/L [facility] Potassium, pl 4.6 3.3 - 4.9 mmol/L [facility] Chloride 108 97 - 110 mmol/L [facility] CO2 24 22 - 32 mmol/L [facility] Anion gap 8 2 - 15 mmol/L [facility] BUN 11 8 - 25 mg/dL [facility] Creatinine 0.83 0.80 - 1.30 mg/dL [facility] Glucose 97 70 - 199 mg/dL [facility] Comment: Interpretive Data Fasting glucose [...] interpretive data was last revised 2017. Calcium 8.8 8.5 - 10.3 mg/dL [facility] Blood 07/05/2021 2:19 AM CDT 07/05/2021 2:37 AM CDT Vy Munoz NP LAB BLOOD ORDERA BLES Final Result [facility] Department [place] [address] * POCT glucose (07/04/2021 11:38 PM CDT) [facility] Glucose, POC 107 70 - 199 mg/dL [facility] Blood 07/04/2021 11:3 8 PM CDT 07/04/2021 11:38 PM CDT us Darrel Wolf MD LAB POCT ORDERABLES - DEVICE Final Result [facility] Department [place] [address] * ECG 12 lead (07/04/2021 7:56 PM CDT) [facility] Ventricular Rate EKG/Min 156 BPM [facility] Atrial Rate 326 BPM [facility] QRS-Interval (MSEC) 72 ms [facility] QT-Interval (MSEC) 294 ms [facility] QTc 473 ms [facility] R [place] 46 degrees [facility] T [place] 198 degrees [facility] Diagnosis Atrial fibrillation with rapid ventricular response Nonspecific ST and T wave abnormality Abnormal ECG When compared with ECG of 13-JUN-2021 23:38, Vent. rate has increased BY ??78 BPM Nonspecific T wave abnormality no longer evident in Anterior leads Confirmed by KERRY NICOLE M.D ([id number]) on 07/05/2021 9:58:52 PM [facility] 07/04/2021 7:56 PM CDT 07/05/2021 9:58 PM CDT Cassie Trent TEXTILE MACHINE MAINTENANCE MECHANIC ECG ORDERABLES Final Re sult Performing Organization Address [facility]/ZIP Co de Phone Number [facility] * POCT glucose (07/04/2021 5:27 PM CDT) [facility] Glucose, POC 99 70 - 199 mg/dL [facility] Blood 07/04/2021 5:27 PM CDT 07/04/2021 5:27 PM CDT Darrel Wolf MD LAB POCT ORDERABLES - DEVICE Final Result Performing Organization Address [facility] Co de Phone Number [facility] Department [place] [address] * FL Fluoroscopy < 1 Hour (07/04/2021 11:17 AM CDT) Narrative RAD_P[facility] - 07/04/2021 11:18 AM CDT The images from this study are not interpreted by Radiology. ??Please refer to the physician's procedure / OR operative note. Yoanna Delvalle MD IMG FLUOROSCOPY [place] OCEDURES Final Result Performing Organization Address [facility]/ZIP Co de Phone Number [facility] * eGFR (07/03/2021 10:35 PM CDT) eGFR >90 90 - 130 mL/min/1. 73 m2 [facility] Comment: Interpretive Data Reference Interval Normal ?>/= [...] interpretive data was last reviewed 2021. Blood 07/03/2021 10:3 5 PM CDT 07/03/2021 10:48 PM CDT Julieta So NP LAB BLOOD ORDERABLES Fi nal Result [facility] Department of Laboratories [place], [place] [id number] * Protime-INR (07/03/2021 10:35 PM CDT) Pathologist [facility] PT 12.8 9.5 - 13.6 sec [facility] INR 1.2 0.9 - 1.2 [facility] Comment: Interpretive data Oral anticoagulant therapeutic ranges: Venous thromboembolism prophylaxis or treatment: 2.0-3.0 CARDIOLOGY Standard range: 2.0-3.0 High-intensity range: 2.5-3.5 Refer to indication-specific guidelines for appropriate target ranges for prosthetic heart valve replacement. Current interpretive data was last revised on 2019. Blood 07/03/2021 10:3 5 PM CDT 07/03/2021 10:52 PM CDT Darrel Wolf MD LAB BLOOD ORDERABLES F inal Result [facility] [place] [address] * Type and screen (07/03/2021 10:35 PM CDT) Nancy, indirect Negative [facility] ABO Rh O Positive [facility] Blood 07/03/2021 10:3 5 PM CDT 07/03/2021 11:08 PM CDT Narrative [facility] - 07/04/2021 12:10 AM CDT Has the patient had Daratumumab or Isatuximab in the past 6 months?->Unknown Darrel Wolf MD LAB BLOOD BANK TEST OR DERABLES Final Result Performing Organization Address [facility] Co de Phone Number [facility] [place] [address] * Magnesium (07/03/2021 10:35 PM CDT) Magnesium 1.7 1.4 - 2.5 mg/dL [facility] Blood 07/03/2021 10:3 5 PM CDT 07/03/2021 10:48 PM CDT Julieta So NP LAB BLOOD ORDERABLES Fi nal Result Performing Organization Address City/[facility]/ZIP Co de Phone Number [facility] [place] [address] * (ABNORMAL) CBC without differential (07/03/2021 10:35 PM CDT) [facility] WBC 6.5 3.8 - 9.9 K/cumm [facility] Hgb 11.8(L) 13.0 - 17.5 g/dL [facility] Hct 34.0(L) 38.9 - 50.3 % [facility] Plt 185 150 - 400 K/cumm [facility] MPV 10.2 9.1 - 12.3 fL [facility] RBC 3.45(L) 4.30 - 5.80 M/cumm [facility] MCV 98.6(H) 81.3 - 96.4 fL [facility] MCH 34.2(H) 27.1 - 33.3 pg [facility] MCHC 34.7 32.3 - 35.7 g/dL [facility] RDW CV 12.2 11.1 - 14.9 % [facility] RDW SD 44.1 35.7 - 48.1 fL [facility] NRBC abs 0.00 0.00 - 0.01 K/cumm [facility] Blood 07/03/2021 10:3 5 PM CDT 07/03/2021 10:50 PM CDT us Julieta So [employer] MACHINE MAINTENANCE MECHANIC LAB BLOOD ORDERABLES Fi nal Result [facility] [address] [facility] Department [place] [address] * (ABNORMAL) Basic metabolic panel (07/03/2021 10:35 PM CDT) [facility] Sodium 140 135 - 145 mmol/L [facility] Potassium, pl 4.4 3.3 - 4.9 mmol/L [facility] Chloride 105 97 - 110 mmol/L [facility] CO2 29 22 - 32 mmol/L [facility] Anion gap 6 2 - 15 mmol/L [facility] BUN 13 8 - 25 mg/dL [facility] Creatinine 0.75(L) 0.80 - 1.30 mg/dL [facility] Glucose 106 70 - 199 mg/dL [facility] Comment: Interpretive Data Fasting glucose [...] interpretive data was last revised 2017. Calcium 9.6 8.5 - 10.3 mg/dL [facility] Blood 07/03/2021 10:3 5 PM CDT 07/03/2021 10:48 PM CDT us Julieta So NP LAB BLOOD ORDERABLES Fi nal Result [facility] Department [place] [address] * POCT glucose (07/03/2021 10:33 PM CDT) [facility] Glucose, POC 97 70 - 199 mg/dL [facility] Blood 07/03/2021 10:3 3 PM CDT 07/03/2021 10:33 PM CDT us Darrel Wolf MD LAB POCT ORDERABLES - DEVICE Final Result [facility] Department [place] [address] * XR Hip Left 2 or 3 Views W Pelvis (07/03/2021 4:42 PM CDT) Anatomical Region Laterality Modality Lower Extremities, Hip, Pelvis Left C omputed Radiography 07/03/2021 5:09 PM CDT Impressions 07/03/2021 5:09 PM CDT 1. Unchanged minimally displaced left greater trochanteric fracture. Electronically signed by: Mateo Bustillo MD Narrative 07/03/2021 5:09 PM CDT EXAMINATION: XR HIP LEFT 2 OR 3 VIEWS W PELVIS HISTORY: ??Fracture, follow-up. FINDINGS: 3 views of the left hip and pelvis are submitted for interpretation with comparison to 06/18/2021. There is an unchanged minimally displaced left greater trochanteric fracture alignment is unchanged. There is been no significant interval healing. The bilateral hip joint spaces are maintained. Enteric contrast is present within the left colon and rectum. Atherosclerotic calcifications are present. Procedure Note Mateo Bustillo MD - 07/03/2021 EXAMINATION: XR HIP LEFT 2 OR 3 VIEWS W PELVIS HISTORY: Fracture, follow-up. FINDINGS: 3 views of the left hip and pelvis are submitted for interpretation with comparison to 06/18/2021. There is an unchanged minimally displaced left greater trochanteric fracture alignment is unchanged. There is been no significant interval healing. The bilateral hip joint spaces are maintained. Enteric contrast is present within the left colon and rectum. Atherosclerotic calcifications are present. IMPRESSION: 1. Unchanged minimally displaced left greater trochanteric fracture. Electronically signed by: Mateo Bustillo MD Darrel Wolf MD IMG XR PROCEDURES Mariangel l Result * Magnesium (07/03/2021 12:08 AM CDT) Pathologist [facility] Magnesium 1.8 1.4 - 2.5 mg/dL [facility] Blood 07/03/2021 12:0 8 AM CDT 07/03/2021 12:23 AM CDT Darrel Wolf MD LAB BLOOD ORDERABLES F inal Result [facility] [address] [facility] Department [place] [address] * eGFR (07/03/2021 12:08 AM CDT) eGFR >90 90 - 130 mL/min/1. 73 m2 [facility] Comment: Interpretive Data Reference Interval [...] interpretive data was last reviewed 2021. Blood 07/03/2021 12:0 8 AM CDT 07/03/2021 12:23 AM CDT Vy Munoz TEXTILE MACHINE MAINTENANCE MECHANIC LAB BLOOD ORDERA BLES Final Result [facility] Department [place] [address] * Differential, auto (07/03/2021 12:08 AM CDT) Neutrophil abs 4.2 1.7 - 6.5 K/cumm [facility] Imm gran abs 0.0 0.0 - 0.1 K/cumm [facility] Lymphocyte abs 1.4 0.8 - 3.3 K/cumm [facility] Monocyte abs 0.4 0.2 - 0.8 K/cumm [facility] Eosinophil abs 0.2 0.0 - 0.5 K/cumm [facility] Basophil abs 0.0 0.0 - 0.1 K/cumm [facility] Neutrophil pct 67.6 % [facility] Comment: Interpretive Data Percent cell count reference ranges are not reported, since discordance with absolute values may lead to misinterpretation of CBC data. Current Interpretive Data was last revised on 2017. Imm gran pct 0.6 % [facility] Comment: Interpretive Data Percent cell count reference ranges are not reported, since discordance with absolute values may lead to misinterpretation of CBC data. Current Interpretive Data was last revised on 2017. Lymphocyte pct 21.9 % [facility] Comment: Interpretive Data Percent cell count reference ranges are not reported, since discordance with absolute values may lead to misinterpretation of CBC data. Current Interpretive Data was last revised on 2017. Monocyte pct 6.4 % [facility] Comment: Interpretive Data Percent cell count reference ranges are not reported, since discordance with absolute values may lead to misinterpretation of CBC data. Current Interpretive Data was last revised on 2017. Eosinophil pct 3.0 % [facility] Comment: Interpretive Data Percent cell count reference ranges are not reported, since discordance with absolute values may lead to misinterpretation of CBC data. Current Interpretive Data was last revised on 2017. Basophil pct 0.5 % [facility] Comment: Interpretive Data Percent cell count reference ranges are not reported, since discordance with absolute values may lead to misinterpretation of CBC data. Current Interpretive Data was last revised on 2017. Blood 07/03/2021 12:0 8 AM CDT 07/03/2021 12:23 AM CDT us Vy Munoz NP LAB BLOOD ORDERA BLES Final Result [facility] [address] [facility] Department [place] [address] * (ABNORMAL) CBC with auto differential (07/03/2021 12:08 AM CDT) [facility] WBC 6.3 3.8 - 9.9 K/cumm [facility] Hgb 11.9(L) 13.0 - 17.5 g/dL [facility] Hct 35.4(L) 38.9 - 50.3 % [facility] Plt 184 150 - 400 K/cumm [facility] MPV 10.2 9.1 - 12.3 fL [facility] RBC 3.48(L) 4.30 - 5.80 M/cumm [facility] MCV 101.7(H) 81.3 - 96.4 fL [facility] MCH 34.2(H) 27.1 - 33.3 pg [facility] MCHC 33.6 32.3 - 35.7 g/dL [facility] RDW CV 12.3 11.1 - 14.9 % [facility] RDW SD 46.3 35.7 - 48.1 fL [facility] NRBC abs 0.00 0.00 - 0.01 K/cumm [facility] Blood 07/03/2021 12:0 8 AM CDT 07/03/2021 12:23 AM CDT Vy Munoz NP LAB BLOOD ORDERA BLES Final Result [facility] [address] [facility] Department [place] [address] * (ABNORMAL) Basic metabolic panel (07/03/2021 12:08 AM CDT) [facility] Sodium 138 135 - 145 mmol/L [facility] Potassium, pl 4.3 3.3 - 4.9 mmol/L [facility] Chloride 106 97 - 110 mmol/L [facility] CO2 26 22 - 32 mmol/L [facility] Anion gap 6 2 - 15 mmol/L [facility] BUN 12 8 - 25 mg/dL [facility] Creatinine 0.73(L) 0.80 - 1.30 mg/dL [facility] Glucose 121 70 - 199 mg/dL [facility] Comment: Interpretive Data Fasting glucose [...] interpretive data was last revised 2017. Calcium 9.1 8.5 - 10.3 mg/dL [facility] Blood 07/03/2021 12:0 8 AM CDT 07/03/2021 12:23 AM CDT us Vy Munoz TEXT[employer] MACHINE MAINTENANCE MECHANIC LAB BLOOD ORDERA BLES Final Result Performing Organization Address City/[facility]/ZIP Co de Phone Number [facility] Department [place] [address] * POCT glucose (07/02/2021 10:09 PM CDT) [facility] Signature Glucose, POC 112 70 - 199 mg/dL [facility] Blood 07/02/2021 10:0 9 PM CDT 07/02/2021 10:09 PM CDT us Darrel Wolf MD LAB POCT ORDERABLES - DEVICE Final Result [facility] [place] [address] * CT Head WO Contrast (07/02/2021 1:45 PM CDT) Anatomical Region Laterality Modality Head and Neck N/A Computed Tomogra phy 07/02/2021 1:51 PM CDT Impressions 07/02/2021 10:34 PM CDT Interval decrease in small volume intraventricular hemorrhage. ??No new acute intracranial hemorrhage. Dictated by: Jessika Candelario, M.D. The radiology attending physician has personally reviewed this study, and had reviewed and/or edited this written report and agrees with it. Electronically signed by: Carlin Rosas 07/02/2021 10:34 PM CDT EXAMINATION: CT head without contrast HISTORY: 71-year-old man follow-up intracranial hemorrhage. TECHNIQUE: Noncontrast CT of the brain was performed with images acquired from skull base to vertex. COMPARISON: Comparison is made to a prior CT dated 06/15/2021. FINDINGS: There has been interval decrease in small volume intraventricular hemorrhage in the occipital horns of the lateral ventricles, right greater than left. There is no new acute intracranial hemorrhage. There is diffuse cerebral volume loss with associated ex vacuo dilatation of the ventricles. ??The ventricles are unchanged in size and morphology. [...] fractures are identified. ??Atherosclerotic vascular calcifications are present. ??Small foci of gas are present in the cavernous sinus and in the soft tissues of the left face, which may be related to intravenous line injection. Procedure Note Carlin Bruris MD PhD - 07/02/2021 EXAMINATION: CT head without contrast HISTORY: 71-year-old man follow-up intracranial hemorrhage. TECHNIQUE: Noncontrast CT of the brain was performed with images acquired from skull base to vertex. COMPARISON: Comparison is made to a prior CT dated 06/15/2021. FINDINGS: There has been interval decrease in small volume intraventricular hemorrhage in the occipital horns of the lateral ventricles, right greater than left. There is no new acute intracranial hemorrhage. [...] fractures are identified. Atherosclerotic vascular calcifications are present. Small foci of gas are present in the cavernous sinus and in the soft tissues of the left face, which may be related to intravenous line injection. IMPRESSION: Interval decrease in small volume intraventricular hemorrhage. No new acute intracranial hemorrhage. Dictated by: Jessika Candelario M.D. The radiology attending physician has personally reviewed this study, and had reviewed and/or edited this written report and agrees with it. Electronically signed by: Carlin Burris us Darrel Wolf MD IMG CT PROCEDURES Mariangel l Result * MRI Hip Left WO Contrast (07/02/2021 11:30 AM CDT) Anatomical Region Laterality Modality Lower Extremities Left Magnetic Reson ance 07/02/2021 4:39 PM CDT Impressions 07/02/2021 4:53 PM CDT 1. ??Nondisplaced intertrochanteric left proximal femur fracture. Dictated by: Walter Elliott M.D. The radiology attending physician has personally reviewed this study, and had reviewed and/or edited this written report and agrees with it. Electronically signed by: Curry Batres MD Narrative 07/02/2021 4:53 PM CDT EXAMINATION: 1. MRI HIP LEFT WO CONTRAST HISTORY: ??Left proximal femur fracture. TECHNIQUE: MR examination of the pelvis and left hip was performed without intravenous contrast. Coronal short TR/TE and STIR images and transverse short TR/TE and fast spin echo images of the pelvis were obtained without contrast. ??Additional small [id number] oblique transverse and sagittal fast spin-echo images of the left hip were obtained. FINDINGS: There is a nondisplaced left intertrochanteric femur fracture with surrounding bone marrow edema and oblique hypointense T1 fracture line. Moderate inferior lumbar degenerative disc disease. ??Moderate bilateral hip chondrosis. Degenerative tears of the bilateral acetabular labrum. There is no hip joint effusion within either hip. There is mild paraspinal and bilateral pelvic muscular atrophy. The adductor and gluteal tendons are intact. The piriformis muscles are symmetric. The sciatic nerves are normal in course and morphology. The hamstring origins are intact. There is bilateral deep iliac bursitis. ??Trace left and right greater trochanteric bursitis No acute intrapelvic abnormality. ??Colonic diverticulosis. ?? Procedure Note Carmen Batres MD - 07/02/2021 EXAMINATION: 1. MRI HIP LEFT WO CONTRAST HISTORY: Left proximal femur fracture. TECHNIQUE: MR examination of the pelvis and left hip was performed without intravenous contrast. Coronal short TR/TE and STIR images and transverse short TR/TE and fast spin echo images of the pelvis were obtained without contrast. Additional small [id number] oblique transverse and sagittal fast spin-echo images of the left hip were obtained. FINDINGS: There is a nondisplaced left intertrochanteric femur fracture with surrounding bone marrow edema and oblique hypointense T1 fracture line. Moderate inferior lumbar degenerative disc disease. Moderate bilateral hip chondrosis. Degenerative tears of the bilateral acetabular labrum. There is no hip joint effusion within either hip. There is mild paraspinal and bilateral pelvic muscular atrophy. The adductor and gluteal tendons are intact. The piriformis muscles are symmetric. The sciatic nerves are normal in course and morphology. The hamstring origins are intact. There is bilateral deep iliac bursitis. Trace left and right greater trochanteric bursitis No acute intrapelvic abnormality. Colonic diverticulosis. IMPRESSION: 1. Nondisplaced intertrochanteric left proximal femur fracture. Dictated by: Walter Elliott M.D. The radiology attending physician has personally reviewed this study, and had reviewed and/or edited this written report and agrees with it. Electronically signed by: Curry Batres MD Patricia Ferrer NP IMG MRI PROCEDURES F inal Result * POCT glucose (07/01/2021 10:35 PM CDT) Glucose, POC 111 70 - 199 mg/dL [facility] Blood 07/01/2021 10:3 5 PM CDT 07/01/2021 10:35 PM CDT Darrel Wolf MD LAB POCT ORDERABLES - DEVICE Final Result Performing Organization Address [facility]/ZIP Co de Phone Number [facility] [place] [address] * POCT glucose (07/01/2021 2:35 PM CDT) Glucose, POC 112 70 - 199 mg/dL [facility] Blood 07/01/2021 2:35 PM CDT 07/01/2021 2:35 PM CDT Darrel Wolf MD LAB POCT ORDERABLES - DEVICE Final Result Performing Organization Address [facility] [place] [address] * POCT glucose (07/01/2021 8:54 AM CDT) Glucose, POC 102 70 - 199 mg/dL [facility] Blood 07/01/2021 8:54 AM CDT 07/01/2021 8:54 AM CDT Darrel Wolf MD LAB POCT ORDERABLES - DEVICE Final Result Performing Organization Address [facility] Co de Phone Number [facility] [place] [address] * POCT glucose (06/30/2021 10:38 PM CDT) Glucose, POC 153 70 - 199 mg/dL [facility] Blood 06/30/2021 10:3 8 PM CDT 06/30/2021 10:38 PM CDT us Darrel Wolf MD LAB POCT ORDERABLES - DEVICE Final Result Performing Organization Address City/[facility]/ZIP Co de Phone Number [facility] [place] [address] * POCT glucose (06/30/2021 6:06 PM CDT) Glucose, POC 94 70 - 199 mg/dL [facility] Blood 06/30/2021 6:06 PM CDT 06/30/2021 6:06 PM CDT us Darrel Wolf MD LAB POCT ORDERABLES - DEVICE Final Result [facility] [place] [address] * FL Long GI Tube Placement (06/30/2021 3:08 PM CDT) Anatomical Region Laterality Modality Body N/A Radio Fluoroscop y 06/30/2021 3:24 PM CDT Impressions 06/30/2021 3:26 PM CDT Successful nasoenteric feeding tube placement in the gastric body. Dictated by: Amish Boudreaux MD The radiology attending physician has personally reviewed this study, and had reviewed and/or edited this written report and agrees with it. Electronically signed by: Tamar Bonilla M.D. Narrative 06/30/2021 3:26 PM CDT EXAMINATION: NASOENTERIC FEEDING TUBE PLACEMENT HISTORY: 71-year-old male with complex medical history requiring enteric tube placement for feeds; gastric placement is okay per ordering provider TECHNIQUE: The left nostril was anesthetized with viscous lidocaine and an 8 Hebrew nasoenteric feeding tube was advanced under fluoroscopic guidance into the stomach. At this point, the patient declined further advancement or manipulation of the tube. The tube was injected with contrast to confirm position within the gastric body. FINDINGS: An image obtained at the end of the procedure shows the tip of the catheter in the gastric body. At the conclusion of the procedure, the guidewire was removed. The attending radiologist, Dr. Tamar Bonilla M.D., was present during the entire procedure. Procedure Note Tamar Bonilla MD - 06/30/2021 EXAMINATION: NASOENTERIC FEEDING TUBE PLACEMENT HISTORY: 71-year-old male with complex medical history requiring enteric tube placement for feeds; gastric placement is okay per ordering provider TECHNIQUE: The left nostril was anesthetized with viscous lidocaine and an 8 Hebrew nasoenteric feeding tube was advanced under fluoroscopic guidance into the stomach. At this point, the patient declined further advancement or manipulation of the tube. The tube was injected with contrast to confirm position within the gastric body. FINDINGS: An image obtained at the end of the procedure shows the tip of the catheter in the gastric body. At the conclusion of the procedure, the guidewire was removed. The attending radiologist, Dr. Tamar Bonilla M.D., was present during the entire procedure. IMPRESSION: Successful nasoenteric feeding tube placement in the gastric body. Dictated by: Amish Boudreaux MD The radiology attending physician has personally reviewed this study, and had reviewed and/or edited this written report and agrees with it. Electronically signed by: Tamar Bonilla M.D. Julieta So TEXTILE MACHINE MAINTENANCE MECHANIC IMG FLUOROSCOPY PROCEDU RES Final Result * POCT glucose (06/30/2021 11:49 AM CDT) Glucose, POC 106 70 - 199 mg/dL [facility] Blood 06/30/2021 11:4 9 AM CDT 06/30/2021 11:49 AM CDT Darrel Wolf MD LAB POCT ORDERABLES - DEVICE Final Result [facility] [address] [facility] Department [place] [address] * POCT glucose (06/30/2021 7:44 AM CDT) Glucose, POC 99 70 - 199 mg/dL [facility] Blood 06/30/2021 7:44 AM CDT 06/30/2021 7:44 AM CDT Darrel Wolf MD LAB POCT ORDERABLES - [place] [address] * POCT glucose (06/30/2021 12:37 AM CDT) Glucose, POC 123 70 - 199 mg/dL [facility] Blood 06/30/2021 12:3 7 AM CDT 06/30/2021 12:37 AM CDT Darrel Wolf MD LAB POCT ORDERABLES - DEVICE Final Result Performing Organization Address [facility] [place] [address] * POCT glucose (06/29/2021 11:44 PM CDT) Glucose, POC 104 70 - 199 mg/dL [facility] Blood 06/29/2021 11:4 4 PM CDT 06/29/2021 11:44 PM CDT Darrel Wolf MD LAB POCT ORDERABLES - DEVICE Final Result Performing Organization Address City/[facility]/ZIP Co de Phone Number [facility] [place] [address] * POCT glucose (06/29/2021 11:28 PM CDT) Glucose, POC 90 70 - 199 mg/dL [facility] Blood 06/29/2021 11:2 8 PM CDT 06/29/2021 11:28 PM CDT Darrel Wolf MD LAB POCT ORDERABLES - DEVICE Final Result [facility] Department [place] [address] * (ABNORMAL) POCT glucose (06/29/2021 11:13 PM CDT) Pathologist [facility] Glucose, POC 32(C) 70 - 199 mg/dL [facility] Glucose comment 1 Glu2: [facility] Blood 06/29/2021 11:1 3 PM CDT 06/29/2021 11:13 PM CDT us Darrel Wolf MD LAB POCT ORDERABLES - DEVICE Final Result [facility] [place] [address] * (ABNORMAL) eGFR (06/29/2021 9:17 PM CDT) [facility] eGFR 82(L) 90 - 130 mL/min/1. 73 m2 [facility] Comment: Interpretive Data Reference Interval [...] interpretive data was last reviewed 2021. Blood 06/29/2021 9:17 PM CDT 06/29/2021 9:52 PM CDT Cassie Trent TEXTILE MACHINE MAINTENANCE MECHANIC LAB BLOOD ORDERABLES Fin al Result Performing Organization Address City/[facility]/ZIP Co de Phone Number [facility] Department [place] [address] * Magnesium (06/29/2021 9:17 PM CDT) Pathologist [facility] Magnesium 1.9 1.4 - 2.5 mg/dL [facility] Blood 06/29/2021 9:17 PM CDT 06/29/2021 9:52 PM CDT Tamiko Ray TEXTILE MACHINE MAINTENANCE MECHANIC LAB BLOOD ORDERABLES Final R esult Performing Organization Address [facility] Co de Phone Number [facility] Department [place] [address] * Basic metabolic panel (06/29/2021 9:17 PM CDT) Sodium 135 135 - 145 mmol/L [facility] Potassium, pl 4.5 3.3 - 4.9 mmol/L [facility] Chloride 104 97 - 110 mmol/L [facility] CO2 24 22 - 32 mmol/L [facility] Anion gap 7 2 - 15 mmol/L [facility] BUN 17 8 - 25 mg/dL [facility] Creatinine 0.99 0.80 - 1.30 mg/dL [facility] Glucose 70 70 - 199 mg/dL [facility] Comment: Interpretive Data Fasting glucose [...] interpretive data was last revised 2017. Calcium 9.2 8.5 - 10.3 mg/dL [facility] Blood 06/29/2021 9:17 PM CDT 06/29/2021 9:52 PM CDT us Cassie Trent TEXTILE MACHINE MAINTENANCE MECHANIC LAB BLOOD ORDERABLES Fin al Result [facility] [address] [facility] [place] [address] * Carotids Duplex Bilateral (06/29/2021 10:45 AM CDT) Anatomical Region Laterality Modality Vascular Bilateral Ultrasound 06/29/2021 10:2 3 AM CDT Narrative 06/29/2021 11:39 AM CDT [facility] - Department of Vascular Surgery, Vascular Laboratory [address] [place] [address] Carotid Duplex Ultrasound Report Patient Name: JANIA REDMAN : 1950 (71y 1m) Study Date: 06/29/2021 10:23:46 AM Gender: M Tech: Location: [id number] Ref.Provider: ELIZABETH PERSAUD Quality: Adequate Order Provider: ELIZABETH PERSAUD Procedures: Carotid Report: Carotid duplex examination of the extracranial arteries was performed using 2D, color and spectral Doppler. Indications: Syncope and Collapse. Measurements: Right Carotid ? Left Carotid ? Measurement ?Value ?Units ? Measurement ?Value ?Units ? RT Prox CCA PSV ?117 ?cm/sec ?LT Prox CCA PSV ?66 ? cm/sec ? RT Distal CCA PSV ?60 ? cm/sec ?LT Distal CCA PSV ?62 ? cm/sec ? RT Prox ICA PSV ?34 ? cm/sec ?LT Prox ICA PSV ?37 ? cm/sec ? RT Prox ICA EDV ?13 ? cm/sec ?LT Prox ICA EDV ?10 ? cm/sec ? RT Mid ICA PSV ? 65 ? cm/sec ?LT Mid ICA PSV ? 48 ? cm/sec ? RT Mid ICA EDV ? 31 ? cm/sec ?LT Mid ICA EDV ? 18 ? cm/sec ? RT Distal ICA PSV ?77 ? cm/sec ?LT Distal ICA PSV ?56 ? cm/sec ? RT Distal ICA EDV ?27 ? cm/sec ?LT Distal ICA EDV ?20 ? cm/sec ? RT ECA PSV ? 88 ? cm/sec ?LT ECA PSV ? 61 ? cm/sec ? RT ICA/CCA ? 1.27 ? ratio ? LT ICA/CCA ? 0.90 ? ratio ? RT VERT PSV ?45 ? cm/sec ?LT VERT PSV ?47 ? cm/sec ? - Findings: Performing Psychology Lecturer: Judy Strange RVT. Rt Common Carotid Artery: The plaque in the right CCA appears to be heterogeneous and irregular. Atherosclerotic changes of the right common carotid artery with no hemodynamically significant Doppler findings. Rt Internal Carotid Artery: The plaque in the right internal carotid artery appears to be heterogeneous and irregular. Atherosclerotic changes of the right internal carotid artery without hemodynamically significant Doppler findings. <50% stenosis. Rt External Carotid Artery: Patent right external carotid artery with evidence of atherosclerotic disease present. Rt Vertebral Artery: The right vertebral artery is patent with antegrade flow. Lt Common Carotid Artery: The plaque in the left CCA appears to be heterogeneous and smooth. Atherosclerotic changes of the left common carotid artery with no hemodynamically significant Doppler findings. Lt Internal Carotid Artery: The plaque in the left internal carotid artery appears to be heterogeneous and irregular. Atherosclerotic changes of the left internal carotid artery without hemodynamically significant Doppler findings. <50% stenosis. Lt External Carotid Artery: Patent left external carotid artery with evidence of atherosclerotic disease present. Lt Vertebral Artery: The left vertebral artery is patent with antegrade flow. Conclusions: 1. The right internal carotid artery disease is consistent with a less than 50% stenosis. 2. The left internal carotid artery disease is consistent with a less than 50% stenosis. 3. Normal, antegrade flow is noted in bilateral vertebral arteries. History: 71 y.o. 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 Previous Studies: No previous studies for comparison. Disclaimer: The signing physician has reviewed all images pertaining to this test. These images and this report will be retained in the patient chart by the Vascular Laboratory for the legally required time period. This chart constitutes the legal record of any testing performed. Electronically Signed By: Saqib Forbes MD [facility] [phone] 2021-06-29 11:39:21 CDT CC: CC: Procedure Note Saqib Forbes MD - 06/29/2021 [facility] - Department of Vascular Surgery,Vascular Laboratory [address] [place] [address] Carotid Duplex Ultrasound Report Patient Name: JANIA REDMANPatient ID: [id number] : 1950 (71y 1m)Study Date: 06/29/2021 10:23:46 AM Gender: MAccession #: [id number] Tech: BLLocation: [id number] Ref.Provider: Ryder PERSAUDality: Adequate Order Provider: Xiomara PERSAUD #: [id number] Procedures: Carotid Report: Carotid duplex examination of the extracranial arterieswas performed using 2D, color and spectral Doppler. Indications: Syncope and Collapse. Measurements: Right Carotid Left Carotid Measurement Value Units Measurement ValueUnits RT Prox CCA PSV 117 cm/sec LT Prox CCA PSV 66cm/sec RT Distal CCA PSV 60 cm/sec LT Distal CCA PSV 62cm/sec RT Prox ICA PSV 34 cm/sec LT Prox ICA PSV 37cm/sec RT Prox ICA EDV 13 cm/sec LT Prox ICA EDV 10cm/sec RT Mid ICA PSV 65 cm/sec LT Mid ICA PSV 48cm/sec RT Mid ICA EDV 31 cm/sec LT Mid ICA EDV 18cm/sec RT Distal ICA PSV 77 cm/sec LT Distal ICA PSV 56cm/sec RT Distal ICA EDV 27 cm/sec LT Distal ICA EDV 20cm/sec RT ECA PSV 88 cm/sec LT ECA PSV 61cm/sec RT ICA/CCA 1.27 ratio LT ICA/CCA 0.90ratio RT VERT PSV 45 cm/sec LT VERT PSV 47cm/sec - Findings: Performing Psychology Lecturer: TOMASA CutlerT. Rt Common Carotid Artery: The plaque in the right CCA appears to beheterogeneous and irregular. Atherosclerotic changes of the right common carotid artery withno hemodynamically significant Doppler findings. Rt Internal Carotid Artery: The plaque in the right internal carotidartery appears to be heterogeneous and irregular. Atherosclerotic changes of the right internalcarotid artery without hemodynamically significant Doppler findings. <50% stenosis. Rt External Carotid Artery: Patent right external carotid artery withevidence of atherosclerotic disease present. Rt Vertebral Artery: The right vertebral artery is patent with antegradeflow. Lt Common Carotid Artery: The plaque in the left CCA appears to beheterogeneous and smooth. Atherosclerotic changes of the left common carotid artery with nohemodynamically significant Doppler findings. Lt Internal Carotid Artery: The plaque in the left internal carotid arteryappears to be heterogeneous and irregular. Atherosclerotic changes of the left internalcarotid artery without hemodynamically significant Doppler findings. <50% stenosis. Lt External Carotid Artery: Patent left external carotid artery withevidence of atherosclerotic disease present. Lt Vertebral Artery: The left vertebral artery is patent with antegradeflow. Conclusions: 1. The right internal carotid artery disease is consistent with a lessthan 50% stenosis. 2. The left internal carotid artery disease is consistent with a less than50% stenosis. 3. Normal, antegrade flow is noted in bilateral vertebral arteries. History: 71 y.o. 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 Previous Studies: No previous studies for comparison. Disclaimer: The signing physician has reviewed all images pertaining tothis test. These images and this report will be retained in the patient chart by theVascular Laboratory for the legally required time period. This chart constitutes the legalrecord of any testing performed. Electronically Signed By: Saqib Forbes MD [facility] [phone] 2021-06-29 11:39:21 CDT CC: CC: Elizabeth Persaud NP IMG US PROCEDURES Final R esult * (ABNORMAL) eGFR (06/28/2021 10:24 PM CDT) eGFR 83(L) 90 - 130 mL/min/1. 73 m2 [facility] Comment: Interpretive Data Reference Interval [...] interpretive data was last reviewed 2021. Blood 06/28/2021 10:2 4 PM CDT 06/28/2021 10:42 PM CDT us Cassie Trent TEXTILE MACHINE MAINTENANCE MECHANIC LAB BLOOD ORDERABLES Fin al Result [facility] [address] Department [place] [address] * Magnesium (06/28/2021 10:24 PM CDT) Pathologist [facility] Magnesium 2.0 1.4 - 2.5 mg/dL [facility] Blood 06/28/2021 10:2 4 PM CDT 06/28/2021 10:42 PM CDT Tamiko Ray TEXTILE MACHINE MAINTENANCE MECHANIC LAB BLOOD ORDERABLES Final R esult Performing Organization Address [facility]/ZIP Co de Phone Number [facility] Department [place] [address] * (ABNORMAL) CBC without differential (06/28/2021 10:24 PM CDT) WBC 6.3 3.8 - 9.9 K/cumm [facility] Hgb 12.2(L) 13.0 - 17.5 g/dL [facility] Hct 34.5(L) 38.9 - 50.3 % [facility] Plt 217 150 - 400 K/cumm [facility] MPV 10.4 9.1 - 12.3 fL [facility] RBC 3.48(L) 4.30 - 5.80 M/cumm [facility] MCV 99.1(H) 81.3 - 96.4 fL [facility] MCH 35.1(H) 27.1 - 33.3 pg [facility] MCHC 35.4 32.3 - 35.7 g/dL [facility] RDW CV 12.7 11.1 - 14.9 % [facility] RDW SD 45.7 35.7 - 48.1 fL [facility] NRBC abs 0.00 0.00 - 0.01 K/cumm [facility] Blood 06/28/2021 10:2 4 PM CDT 06/28/2021 10:42 PM CDT Cassie Trent TEXTILE MACHINE MAINTENANCE MECHANIC LAB BLOOD ORDERABLES Fin al Result [facility] Department [place] [address] * Basic metabolic panel (06/28/2021 10:24 PM CDT) Pathologist [facility] Sodium 137 135 - 145 mmol/L [facility] Potassium, pl 4.4 3.3 - 4.9 mmol/L [facility] Chloride 102 97 - 110 mmol/L [facility] CO2 26 22 - 32 mmol/L [facility] Anion gap 9 2 - 15 mmol/L [facility] BUN 18 8 - 25 mg/dL [facility] Creatinine 0.98 0.80 - 1.30 mg/dL [facility] Glucose 90 70 - 199 mg/dL [facility] Comment: Interpretive Data Fasting glucose [...] interpretive data was last revised 2017. Calcium 9.1 8.5 - 10.3 mg/dL [facility] Blood 06/28/2021 10:2 4 PM CDT 06/28/2021 10:42 PM CDT Cassie Trent TEXTILE MACHINE MAINTENANCE MECHANIC LAB BLOOD ORDERABLES Fin al Result [facility] [address] Department [place] [address] * (ABNORMAL) eGFR (06/27/2021 9:45 PM CDT) eGFR 86(L) 90 - 130 mL/min/1. 73 m2 [facility] Comment: Interpretive Data Reference Interval [...] interpretive data was last reviewed 2021. Blood 06/27/2021 9:45 PM CDT 06/27/2021 10:17 PM CDT Cassie Trent TEXTILE MACHINE MAINTENANCE MECHANIC LAB BLOOD ORDERABLES Fin al Result Performing Organization Address City/[facility]/ZIP Co de Phone Number [facility] Department [place] [address] * Magnesium (06/27/2021 9:45 PM CDT) Magnesium 2.2 1.4 - 2.5 mg/dL [facility] Blood 06/27/2021 9:45 PM CDT 06/27/2021 10:17 PM CDT Tamiko Ray TEXTILE MACHINE MAINTENANCE MECHANIC LAB BLOOD ORDERABLES Final R esult [facility] Department [place] [address] * (ABNORMAL) CBC without differential (06/27/2021 9:45 PM CDT) WBC 10.2(H) 3.8 - 9.9 K/cumm [facility] Hgb 11.7(L) 13.0 - 17.5 g/dL [facility] Hct 33.7(L) 38.9 - 50.3 % [facility] Plt 240 150 - 400 K/cumm [facility] MPV 10.7 9.1 - 12.3 fL [facility] RBC 3.41(L) 4.30 - 5.80 M/cumm [facility] MCV 98.8(H) 81.3 - 96.4 fL [facility] MCH 34.3(H) 27.1 - 33.3 pg [facility] MCHC 34.7 32.3 - 35.7 g/dL [facility] RDW CV 12.6 11.1 - 14.9 % [facility] RDW SD 45.4 35.7 - 48.1 fL [facility] NRBC abs 0.00 0.00 - 0.01 K/cumm [facility] Blood 06/27/2021 9:45 PM CDT 06/27/2021 10:18 PM CDT Cassie Trent TEXTILE MACHINE MAINTENANCE MECHANIC LAB BLOOD ORDERABLES [facility] al Result [facility] [address] [facility] Department [place] [address] * (ABNORMAL) Basic metabolic panel (06/27/2021 9:45 PM CDT) Sodium 133(L) 135 - 145 mmol/L [facility] Potassium, pl 4.7 3.3 - 4.9 mmol/L [facility] Comment:Hemolyzed; Potassium value may be falsely elevated by as much as 0.3-0.5 mmol/L. Suggest redraw and reanalysis. Chloride 99 97 - 110 mmol/L [facility] CO2 27 22 - 32 mmol/L [facility] Anion gap 7 2 - 15 mmol/L [facility] BUN 20 8 - 25 mg/dL [facility] Creatinine 0.95 0.80 - 1.30 mg/dL [facility] Glucose 107 70 - 199 mg/dL [facility] Comment: Interpretive Data Fasting glucose [...] interpretive data was last revised 2017. Calcium 9.4 8.5 - 10.3 mg/dL [facility] Blood 06/27/2021 9:45 PM CDT 06/27/2021 10:17 PM CDT us Cassie Trent TEXTILE MACHINE MAINTENANCE MECHANIC LAB BLOOD ORDERABLES Fin al Result [facility] [address] [facility] Department [place] [address] * (ABNORMAL) eGFR (06/26/2021 11:47 PM CDT) eGFR 89(L) 90 - 130 mL/min/1. 73 m2 [facility] Comment: Interpretive Data Reference Interval Normal ?>/= [...] interpretive data was last reviewed 2021. Blood 06/26/2021 11:4 7 PM CDT 06/27/2021 12:11 AM CDT Cassie Trent TEXTILE MACHINE MAINTENANCE MECHANIC LAB BLOOD ORDERABLES Fin al Result Performing Organization Address City/[facility]/ZIP Co de Phone Number [facility] Department [place] [address] * Magnesium (06/26/2021 11:47 PM CDT) Magnesium 1.8 1.4 - 2.5 mg/dL [facility] Blood 06/26/2021 11:4 7 PM CDT 06/27/2021 12:11 AM CDT Tamiko Ray TEXTILE MACHINE MAINTENANCE MECHANIC LAB BLOOD ORDERABLES Final R esult Performing Organization Address [facility]/ZIP Co de Phone Number [facility] Department [place] [address] * (ABNORMAL) CBC without differential (06/26/2021 11:47 PM CDT) WBC 17.4(H) 3.8 - 9.9 K/cumm [facility] Hgb 12.4(L) 13.0 - 17.5 g/dL [facility] Hct 35.4(L) 38.9 - 50.3 % [facility] Plt 227 150 - 400 K/cumm [facility] MPV 10.4 9.1 - 12.3 fL [facility] RBC 3.59(L) 4.30 - 5.80 M/cumm [facility] MCV 98.6(H) 81.3 - 96.4 fL [facility] MCH 34.5(H) 27.1 - 33.3 pg [facility] MCHC 35.0 32.3 - 35.7 g/dL [facility] RDW CV 12.2 11.1 - 14.9 % [facility] RDW SD 44.0 35.7 - 48.1 fL [facility] NRBC abs 0.00 0.00 - 0.01 K/cumm [facility] Blood 06/26/2021 11:4 7 PM CDT 06/27/2021 12:11 AM CDT Cassie Trent TEXTILE MACHINE MAINTENANCE MECHANIC LAB BLOOD ORDERABLES Fin al Result [facility] Department [place] [address] * Basic metabolic panel (06/26/2021 11:47 PM CDT) Pathologist [facility] Sodium 135 135 - 145 mmol/L [facility] Potassium, pl 4.7 3.3 - 4.9 mmol/L [facility] Chloride 99 97 - 110 mmol/L [facility] CO2 27 22 - 32 mmol/L [facility] Anion gap 9 2 - 15 mmol/L [facility] BUN 18 8 - 25 mg/dL [facility] Creatinine 0.92 0.80 - 1.30 mg/dL [facility] Glucose 102 70 - 199 mg/dL [facility] Comment: Interpretive Data Fasting glucose [...] interpretive data was last revised 2017. Calcium 9.4 8.5 - 10.3 mg/dL [facility] Blood 06/26/2021 11:4 7 PM CDT 06/27/2021 12:11 AM CDT Cassie Rika Trent TEXTILE MACHINE MAINTENANCE MECHANIC LAB BLOOD ORDERABLES Fin al Result [facility] Department [place] [address] * FL Modified Barium Swallow W Video (06/26/2021 1:09 PM CDT) Anatomical Region Laterality Modality Head and Neck N/A Computed Radiogr aphy 06/26/2021 1:54 PM CDT Impressions 06/26/2021 2:06 PM CDT The swallowing mechanism is abnormal; see above comments. Please refer to the Speech Pathology procedure note for safe swallow recommendations as well as additional information regarding the oral-pharyngeal swallow function, plan of care, and recommended follow up. Dictated by: Srinivasan Holder M.D. The radiology attending physician has personally reviewed this study, and had reviewed and/or edited this written report and agrees with it. Electronically signed by: Stepan Scott M.D. Narrative 06/26/2021 2:06 PM CDT EXAMINATION: MODIFIED BARIUM SWALLOW HISTORY: Dysphagia. TECHNIQUE: This procedure was completed in conjunction with a Speech Language Pathologist. The patient was given barium of multiple different consistencies to swallow. Video fluoroscopy was employed during the exam. FINDINGS: Oral-pharyngeal swallow function is moderately impaired. Penetration: Yes There is penetration of thin, nectar thin liquids, honey liquids Penetration is not sensed. Aspiration: Yes There is aspiration of thin liquids, nectar thin liquids, honey liquids.. Aspiration ??is not sensed. Residue:Yes There is ??residue of thin liquids, nectar liquids, honey liquids.. Residue is not sensed. Other comments: None Procedure Note Stepan Scott MD - 06/26/2021 EXAMINATION: MODIFIED BARIUM SWALLOW HISTORY: Dysphagia. TECHNIQUE: This procedure was completed in conjunction with a Speech Language Pathologist. The patient was given barium of multiple different consistencies to swallow. Video fluoroscopy was employed during the exam. FINDINGS: Oral-pharyngeal swallow function is moderately impaired. Penetration: Yes There is penetration of thin, nectar thin liquids, honey liquids Penetration is not sensed. Aspiration: Yes There is aspiration of thin liquids, nectar thin liquids, honey liquids.. Aspiration is not sensed. Residue:Yes There is residue of thin liquids, nectar liquids, honey liquids.. Residue is not sensed. Other comments: None IMPRESSION: The swallowing mechanism is abnormal; see above comments. Please refer to the Speech Pathology procedure note for safe swallow recommendations as well as additional information regarding the oral-pharyngeal swallow function, plan of care, and recommended follow up. Dictated by: Srinivasan Holder M.D. The radiology attending physician has personally reviewed this study, and had reviewed and/or edited this written report and agrees with it. Electronically signed by: Stepan Scott M.D. Patricia Ferrer TEXTILE MACHINE MAINTENANCE MECHANIC IMG FLUOROSCOPY PROC EDURES Final Result * [employer] Evaluate and Treat (VFSS) (06/26/2021 1:02 PM CDT) Narrative Mildred Buck, [employer] - 06/26/2021 1:02 PM CDT Mildred Buck [employer] ? 06/26/2021 ??2:59 PM Speech-Language Pathology: Videofluoroscopic Study of Swallow (VFSS/MBS) HPI/PMH Per sign in room, pt is [place] and blind Admitted 06/11 HPI/PMH: 71M HTN/HL, a-fib on Eliquis, HFrEF (45-50% EF 2020), COPD not on home O2, legally blind, hearing loss, [facility] p/w trace tSAH and IVH following a fall. Admitted OSH with altered LOC. Initial CT neg but subsequent MRI with tr SAH/IVH. Tx to [facility] NSGY service 06/11 where has remained encephalopathic. Respiratory/Intubation Status: intubated 06/18, now on RA ?? Imaging: CXR 06/17: Streaky right basilar opacities are seen likely representing aspiration. ??Mild pulmonary edema is noted, increased. ??Mild left basilar atelectasis is seen, increased. ?? The costophrenic angles are excluded. ??There is no pneumothorax. ?? The cardiomediastinal silhouette is stable. hCT 3/10: No significant interval change. Evolving small volume intraventricular hemorrhage. The known subarachnoid hemorrhage is not well appreciated, and may be due to portable technique Precautions: seizure, fall, aspiration, WENCESLAO, low risk non-suicidal self injurious Current Diet Order: NPO Baseline Feeding Status: unknown General Information Jania Redman 06/26/21 [employer] Received On: 06/26/21 General Observations: Pt seen sitting upright in the evaluation chair. Pt confused and required frequent redirection to task. Pt not able to follow commands during the evaluation to attempt swallowing modifications Reason for Referral: c/f aspiration Pain Score: 0 - No pain If pain >4, was RN notified? N/A Patient Stated Goal/Comments: Pt did not state any ST related goals/comments this date. Clinical Impression & Professional Recommendations Diet Solids Recommendation: Dysphagia diet-Phase 1 Diet Liquids Recommendations: NPO for liquids Recommended Form of Medications: Crushed, With puree (or via feeding tube) Compensatory Strategies/Modifications: Small bites Postural Recommendations: Upright 90 degrees Assistance with feeding/swallowing: Full supervision with meals Specialty Instructions/Modifications: oral care 2-3x/day Overall Clinical Impression/Additional Information: Moderate oral-pharyngeal swallow dysfunction with motor and sensory deficits characterized by the following: ?? Oral Phase Deficits: reduced lingual to palatal contact resulting in premature spillage into pharynx of all liquid consistencies; trace to mild oral residue. ?? Pharyngeal Phase Deficits: delayed swallow initiation to the level of the pyriforms, reduced hyo-laryngeal elevation and excursion, incomplete laryngeal vestibule closure, mild base of tongue weakness. ?? Deficits result in: With thin liquids, pt demonstrated consistent penetration and single instance aspiration before the swallow. With nectar thickened liquids and honey thickened liquids, pt demonstrated inconsistent penetration and inconsistent flash aspiration during the swallow; aspiration cleared back to laryngeal vestibule. Pt did not sense any penetration or aspiration and was unable to follow commands to attempt cough or any other modifications. No penetration or aspiration with any puree trials. Only trace to mild vallecular residue observed with liquid consistencies. ?? Assessment Details & Results Purpose and Procedure of Videofluoroscopic Study of Swallow: Videofluoroscopic Study of Swallow completed to assess oropharyngeal swallow function and safety/efficiency of the swallow so that diet recommendations can be made. This test is completed in conjunction with Radiology. Results of this test are indicative of performance at the time of the exam. Standard procedure is in lateral view at 90 degrees. Consistencies Administered: Thin liquids, Honey thickened liquids, Purees, [place] thickened liquids Respiratory Support: No Significant Impairment- Respiratory support is adequate for speech & swallowing Administered consistencies contain barium product. Thin Liquids: Laryngeal Penetration: Present Aspiration Present: Yes Timing: Before Amount: Moderate Response to aspiration: None Penetration Aspiration Scale-Thin: 8-Material enters the airway, passes below the vocal folds and no effort is made to eject Comments: attempts at modifications unsuccessful this date given pt unable to follow commands [place] Thickened Liquids: Laryngeal Penetration: Present Aspiration Present: Yes Timing: During Amount: Moderate Response to aspiration: None (Flash aspiration during the swallow which cleared from airway into laryngeal vestible; however, material remained deep within laryngeal vestibule and pt did not sense.) Penetration Aspiration Scale-[place]: 6-Material enters the airway, passes below the vocal folds and is ejected into the larynx or out of the airway Comments: attempts at modifications unsuccessful this date given pt unable to follow commands Honey Thickened Liquids: Laryngeal Penetration: Present Aspiration Present: Yes Timing: During Amount: Moderate Response to aspiration: None (Flash aspiration during the swallow which cleared from airway into laryngeal vestible; however, material remained deep within laryngeal vestibule and pt did not sense.) Penetration Aspiration Scale-Honey: 6-Material enters the airway, passes below the vocal folds and is ejected into the larynx or out of the airway Comments: attempts at modifications unsuccessful this date given pt unable to follow commands Purees: Laryngeal Penetration: None Aspiration Present: No Penetration Aspiration Scale-Puree: 1-Material does not enter airway MBSImp: MBSImp Results: Lip closure : 1-Interlabial escape, no progression to anterior lip Tongue Control with Bolus Hold: 3-Posterior escape of greater than half of bolus Bolus Preparation/Mastication : 2-Disorganized chewing/mashing with solid pieces of bolus unchewed Bolus Transport/Lingual Motion : 1-Delayed initiation of tongue motion Oral Residue: 2-Residue collection on oral structures Initiation of Pharyngeal Swallow : 3-Bolus head in pyriforms Soft Palate : 0-No bolus between soft palate and pharyngeal wall Laryngeal Elevation : 2-Minimal superior movement of thyroid cartilage with minimal approximation of arytenoids to epiglottic petiole Anterior Hyoid Excursion: 1-Partial anterior movement Epiglottic Movement: 0-Complete inversion Laryngeal Vestibular Closure: 1-Incomplete, narrow column of air/contrast in laryngeal vestibule Pharyngeal Stripping Wave: 1-Present but diminished Pharyngeal Contraction (AP view only): Not assessed, No AP view Pharyngoesophageal Segment Opening : 0-Complete distention and complete duration, no obstruction of flow Tongue Base Retraction : 2-Narrow column of contrast or air between tongue base and posterior pharyngeal wall Pharyngeal Residue : 2-Collection of residue within or on pharyngeal structures Esophageal Clearance (upright position): Not assessed, No AP view NOMS: National Outcomes Measurement System: Level 3 Dysphagia Outcome and Severity Scale: Dysphagia Outcomes and Severity Scale: 3 Moderate dysphagia Levels 1 & 2 on the MANNY indicate need for nonoral nutrition. Treatment Treatment was not provided this date. Please reference care plan for treatment goals and details, if indicated. Plan [employer] Frequency of Services: 2-4x/wk [employer] Recommendation (Add'l Services): Inpatient Rehab Facility [employer] - Next Appointment: 06/28/21 Next Visit Plan: treatment/therapy Additional Referrals: PT/OT Discharge Summary Statement If this is the last swallow therapy visit, this serves as the discharge summary. AMOL Dias, CCC-[employer], 06/26/21 2:28 PM Patricia Ferrer NP [employer] ORDERABLES Edit ed Result - Final * eGFR (06/25/2021 7:56 PM CDT) Pathologist [facility] eGFR >90 90 - 130 mL/min/1. 73 m2 [facility] Comment: Interpretive Data Reference Interval Normal ?>/= [...] interpretive data was last reviewed 2021. Blood 06/25/2021 7:56 PM CDT 06/25/2021 8:04 PM CDT Cassie Trent TEXTILE MACHINE MAINTENANCE MECHANIC LAB BLOOD ORDERABLES Fin al Result Performing Organization Address City/[facility]/ZIP Co de Phone Number [facility] Department [place] [address] * Magnesium (06/25/2021 7:56 PM CDT) Pathologist [facility] Magnesium 2.0 1.4 - 2.5 mg/dL [facility] Blood 06/25/2021 7:56 PM CDT 06/25/2021 8:04 PM CDT us Tamiko Ray [employer] MACHINE MAINTENANCE MECHANIC LAB BLOOD ORDERABLES Final R esult Performing Organization Address City/[facility]/ZIP Co de Phone Number [facility] Department [place] [address] * (ABNORMAL) CBC without differential (06/25/2021 7:56 PM CDT) WBC 6.3 3.8 - 9.9 K/cumm [facility] Hgb 11.5(L) 13.0 - 17.5 g/dL [facility] Hct 33.5(L) 38.9 - 50.3 % [facility] Plt 228 150 - 400 K/cumm [facility] MPV 9.8 9.1 - 12.3 fL [facility] RBC 3.33(L) 4.30 - 5.80 M/cumm [facility] MCV 100.6(H) 81.3 - 96.4 fL [facility] MCH 34.5(H) 27.1 - 33.3 pg [facility] MCHC 34.3 32.3 - 35.7 g/dL [facility] RDW CV 12.2 11.1 - 14.9 % [facility] RDW SD 44.4 35.7 - 48.1 fL [facility] NRBC abs 0.00 0.00 - 0.01 K/cumm [facility] Blood 06/25/2021 7:56 PM CDT 06/25/2021 8:03 PM CDT Cassie Trent NP LAB BLOOD ORDERABLES Fin al Result [facility] Department [place] [address] * Basic metabolic panel (06/25/2021 7:56 PM CDT) Sodium 135 135 - 145 mmol/L [facility] Potassium, pl 4.9 3.3 - 4.9 mmol/L [facility] Chloride 100 97 - 110 mmol/L [facility] CO2 29 22 - 32 mmol/L [facility] Anion gap 6 2 - 15 mmol/L [facility] BUN 17 8 - 25 mg/dL [facility] Creatinine 0.85 0.80 - 1.30 mg/dL [facility] Glucose 109 70 - 199 mg/dL [facility] Comment: Interpretive Data Fasting glucose [...] interpretive data was last revised 2017. Calcium 9.4 8.5 - 10.3 mg/[facility] Blood 06/25/2021 7:56 PM CDT 06/25/2021 8:04 PM CDT us Cassie Meléndez Miley TEXT[employer]ACHINE MAINTENANCE MECHANIC LAB BLOOD ORDERABLES Fin al Result [facility] Department [place] [address] * eGFR (06/25/2021 2:00 AM CDT) eGFR >90 90 - 130 mL/min/1. 73 m2 [facility] Comment: Interpretive Data Reference Interval Normal ?>/= [...] interpretive data was last reviewed 2021. Blood 06/25/2021 2:00 AM CDT 06/25/2021 2:21 AM CDT us Seth Kiser MD LAB BLOOD ORDERABLES Final Result [facility] [place] [address] * (ABNORMAL) Basic metabolic panel (06/25/2021 2:00 AM CDT) Sodium 135 135 - 145 mmol/L [facility] Potassium, pl 5.1(H) 3.3 - 4.9 mmol/L [facility] Chloride 101 97 - 110 mmol/L [facility] CO2 29 22 - 32 mmol/L [facility] Anion gap 5 2 - 15 mmol/L [facility] BUN 14 8 - 25 mg/dL [facility] Creatinine 0.85 0.80 - 1.30 mg/dL [facility] Glucose 108 70 - 199 mg/dL [facility] Comment: Interpretive Data Fasting glucose [...] 2017. Calcium 8.9 8.5 - 10.3 mg/dL [facility] Blood 06/25/2021 2:00 AM CDT 06/25/2021 2:15 AM CDT us Seth Kiser MD LAB BLOOD ORDERABLES Final Result [facility] [address] Department [place] [address] * eGFR (06/24/2021 7:44 PM CDT) Pathologist [facility] eGFR >90 90 - 130 mL/min/1. 73 m2 [facility] Comment: Interpretive Data Reference Interval [...] interpretive data was last reviewed 2021. Blood 06/24/2021 7:44 PM CDT 06/24/2021 8:17 PM CDT us Ciarra Jama NP LAB BLOOD ORDERABLES Final Result [facility] [address] Department [place] [address] * Magnesium (06/24/2021 7:44 PM CDT) Magnesium 2.1 1.4 - 2.5 mg/dL [facility] Blood 06/24/2021 7:44 PM CDT 06/24/2021 7:53 PM CDT us Seth Kiser MD LAB BLOOD ORDERABLES Final Result Performing Organization Address City/[facility]/ZIP Co de Phone Number [facility] [address] Department [place] [address] * Phosphorus (06/24/2021 7:44 PM CDT) [facility] Phosphorus, pl 4.0 2.3 - 4.5 mg/dL [facility] Blood 06/24/2021 7:44 PM CDT 06/24/2021 7:53 PM CDT Ciarra Jama NP LAB BLOOD ORDERABLES Final Result Performing Organization Address [facility] de Phone Number [facility] [address] Department [place] [address] * (ABNORMAL) Comprehensive metabolic panel (06/24/2021 7:44 PM CDT) [facility] Sodium 133(L) 135 - 145 mmol/L [facility] Potassium, pl 4.8 3.3 - 4.9 mmol/L [facility] Comment:Hemolyzed; Potassium value may be falsely elevated by as much as 0.3-0.5 mmol/L. Suggest redraw and reanalysis. Chloride 99 97 - 110 mmol/L [facility] CO2 27 22 - 32 mmol/L [facility] Anion gap 7 2 - 15 mmol/L [facility] BUN 15 8 - 25 mg/dL [facility] Creatinine 0.79(L) 0.80 - 1.30 mg/dL [facility] Glucose 123 70 - 199 mg/dL [facility] Comment: Interpretive Data Fasting glucose [...] interpretive data was last revised 2017. Calcium 9.0 8.5 - 10.3 mg/dL [facility] Bilirubin, total 0.2 0.1 - 1.2 mg/dL [facility] Protein, pl 6.1(L) 6.5 - 8.5 g/dL [facility] Albumin 3.0(L) 3.5 - 5.0 g/dL [facility] Alk phos 88 40 - 130 Units/L [facility] ALT 16 7 - 55 Units/L [facility] AST 26 10 - 50 Units/L [facility] Comment:Hemolyzed; result ma y be falsely elevated Blood 06/24/2021 7:44 PM CDT 06/24/2021 7:53 PM CDT us Ciarra Jama [employer]ACHINE MAINTENANCE MECHANIC LAB BLOOD ORDERABLES Final Result [facility] [address] Department [place] [address] * (ABNORMAL) CBC without differential (06/24/2021 7:44 PM CDT) WBC 6.1 3.8 - 9.9 K/cumm [facility] Hgb 11.8(L) 13.0 - 17.5 g/dL [facility] Hct 34.5(L) 38.9 - 50.3 % [facility] Plt 252 150 - 400 K/cumm [facility] MPV 10.5 9.1 - 12.3 fL [facility] RBC 3.43(L) 4.30 - 5.80 M/cumm [facility] MCV 100.6(H) 81.3 - 96.4 fL [facility] MCH 34.4(H) 27.1 - 33.3 pg [facility] MCHC 34.2 32.3 - 35.7 g/dL [facility] RDW CV 12.1 11.1 - 14.9 % [facility] RDW SD 44.6 35.7 - 48.1 fL [facility] NRBC abs 0.00 0.00 - 0.01 K/cumm [facility] Blood 06/24/2021 7:44 PM CDT 06/24/2021 8:17 PM CDT Cassie Trent TEXT[employer] MACHINE MAINTENANCE MECHANIC LAB BLOOD ORDERABLES Fin al Result [facility] [address] Department [place] [address] * eGFR (06/23/2021 9:50 PM CDT) eGFR >90 90 - 130 mL/min/1. 73 m2 [facility] Comment: Interpretive Data Reference Interval Normal ?>/= [...] interpretive data was last reviewed 2021. Blood 06/23/2021 9:50 PM CDT 06/23/2021 10:06 PM CDT Cassie Rika Arackal TEXT[employer]ACHINE MAINTENANCE MECHANIC LAB BLOOD ORDERABLES Fin al Result [facility] Department [place] [address] * Magnesium (06/23/2021 9:50 PM CDT) [facility] Magnesium 2.0 1.4 - 2.5 mg/dL [facility] Blood 06/23/2021 9:50 PM CDT 06/23/2021 10:06 PM CDT Tamiko Ray TEXT[employer] MACHINE MAINTENANCE MECHANIC LAB BLOOD ORDERABLES Final R esult Performing Organization Address [facility] Co de Phone Number [facility] Department [place] [address] * (ABNORMAL) CBC without differential (06/23/2021 9:50 PM CDT) [facility] WBC 6.3 3.8 - 9.9 K/cumm [facility] Hgb 11.0(L) 13.0 - 17.5 g/dL [facility] Hct 32.6(L) 38.9 - 50.3 % [facility] Plt 227 150 - 400 K/cumm [facility] MPV 10.4 9.1 - 12.3 fL [facility] RBC 3.22(L) 4.30 - 5.80 M/cumm [facility] MCV 101.2(H) 81.3 - 96.4 fL [facility] MCH 34.2(H) 27.1 - 33.3 pg [facility] MCHC 33.7 32.3 - 35.7 g/dL [facility] RDW CV 12.3 11.1 - 14.9 % [facility] RDW SD 45.1 35.7 - 48.1 fL [facility] NRBC abs 0.00 0.00 - 0.01 K/cumm [facility] Blood 06/23/2021 9:50 PM CDT 06/23/2021 10:06 PM CDT Cassie Rika Trent TEXT[employer]ACHINE MAINTENANCE MECHANIC LAB BLOOD ORDERABLES Fin al Result [facility] Department [place] [address] * Basic metabolic panel (06/23/2021 9:50 PM CDT) Pathologist [facility] Sodium 137 135 - 145 mmol/L [facility] Potassium, pl 4.7 3.3 - 4.9 mmol/L [facility] Chloride 102 97 - 110 mmol/L [facility] CO2 30 22 - 32 mmol/L [facility] Anion gap 5 2 - 15 mmol/L [facility] BUN 15 8 - 25 mg/dL [facility] Creatinine 0.81 0.80 - 1.30 mg/dL [facility] Glucose 80 70 - 199 mg/dL [facility] Comment: Interpretive Data Fasting glucose [...] interpretive data was last revised 2017. Calcium 9.0 8.5 - 10.3 mg/dL [facility] Blood 06/23/2021 9:50 PM CDT 06/23/2021 10:06 PM CDT Cassie Rika Trent TEXTILE MACHINE MAINTENANCE MECHANIC LAB BLOOD ORDERABLES Fin al Result Performing Organization Address [facility] Co de Phone Number [facility] Department [place] [address] * eGFR (06/22/2021 8:38 PM CDT) Pathologist [facility] eGFR >90 90 - 130 mL/min/1. 73 m2 [facility] Comment: Interpretive Data Reference Interval [...] interpretive data was last reviewed 2021. Blood 06/22/2021 8:38 PM CDT 06/22/2021 8:52 PM CDT us Cassie Trent TEXTILE MACHINE MAINTENANCE MECHANIC LAB BLOOD ORDERABLES [facility] al Result [facility] [address] Department [place] [address] * Magnesium (06/22/2021 8:38 PM CDT) Magnesium 2.3 1.4 - 2.5 mg/dL [facility] Blood 06/22/2021 8:38 PM CDT 06/22/2021 8:52 PM CDT us Tamiko Ray TEXT[employer] MACHINE MAINTENANCE MECHANIC LAB BLOOD ORDERABLES Final R esult Performing Organization Address [facility] Co de Phone Number [facility] Department [place] [address] * (ABNORMAL) CBC without differential (06/22/2021 8:38 PM CDT) Pathologist [facility] WBC 8.1 3.8 - 9.9 K/cumm [facility] Hgb 10.7(L) 13.0 - 17.5 g/dL [facility] Hct 30.5(L) 38.9 - 50.3 % [facility] Plt 198 150 - 400 K/cumm [facility] MPV 11.0 9.1 - 12.3 fL [facility] RBC 3.05(L) 4.30 - 5.80 M/cumm [facility] MCV 100.0(H) 81.3 - 96.4 fL [facility] MCH 35.1(H) 27.1 - 33.3 pg [facility] MCHC 35.1 32.3 - 35.7 g/dL [facility] RDW CV 12.3 11.1 - 14.9 % [facility] RDW SD 44.9 35.7 - 48.1 fL [facility] NRBC abs 0.00 0.00 - 0.01 K/cumm [facility] Blood 06/22/2021 8:38 PM CDT 06/22/2021 8:53 PM CDT Cassie Trent TEXTILE MACHINE MAINTENANCE MECHANIC LAB BLOOD ORDERABLES Fin al Result Performing Organization Address [facility] Co de Phone Number [facility] Department [place] [address] * Basic metabolic panel (06/22/2021 8:38 PM CDT) Pathologist [facility] Sodium 138 135 - 145 mmol/L [facility] Potassium, pl 4.6 3.3 - 4.9 mmol/L [facility] Chloride 103 97 - 110 mmol/L [facility] CO2 31 22 - 32 mmol/L [facility] Anion gap 4 2 - 15 mmol/L [facility] BUN 14 8 - 25 mg/dL [facility] Creatinine 0.84 0.80 - 1.30 mg/dL [facility] Glucose 120 70 - 199 mg/dL [facility] Comment: Interpretive Data Fasting glucose [...] interpretive data was last revised 2017. Calcium 9.3 8.5 - 10.3 mg/dL [facility] Blood 06/22/2021 8:38 PM CDT 06/22/2021 8:52 PM CDT Cassie Trent TEXTILE MACHINE MAINTENANCE MECHANIC LAB BLOOD ORDERABLES Fin al Result [facility] [address] Department [place] [address] * eGFR (06/21/2021 9:06 PM CDT) eGFR >90 90 - 130 mL/min/1. 73 m2 [facility] Comment: Interpretive Data Reference Interval [...] interpretive data was last reviewed 2021. Blood 06/21/2021 9:06 PM CDT 06/21/2021 9:30 PM CDT Cassie Trent TEXTILE MACHINE MAINTENANCE MECHANIC LAB BLOOD ORDERABLES Fin al Result Performing Organization Address [facility] Co de Phone Number [facility] Department [place] [address] * (ABNORMAL) Magnesium (06/21/2021 9:06 PM CDT) Magnesium 2.6(H) 1.4 - 2.5 mg/dL [facility] Blood 06/21/2021 9:06 PM CDT 06/21/2021 9:30 PM CDT Tamiko Ray TEXTILE MACHINE MAINTENANCE MECHANIC LAB BLOOD ORDERABLES Final R esult Performing Organization Address City/[facility]/ZIP Co de Phone Number [facility] Department [place] [address] * (ABNORMAL) CBC without differential (06/21/2021 9:06 PM CDT) WBC 9.4 3.8 - 9.9 K/cumm [facility] Hgb 12.2(L) 13.0 - 17.5 g/dL [facility] Hct 36.0(L) 38.9 - 50.3 % [facility] Plt 227 150 - 400 K/cumm [facility] MPV 10.4 9.1 - 12.3 fL [facility] RBC 3.58(L) 4.30 - 5.80 M/cumm [facility] MCV 100.6(H) 81.3 - 96.4 fL [facility] MCH 34.1(H) 27.1 - 33.3 pg [facility] MCHC 33.9 32.3 - 35.7 g/dL [facility] RDW CV 12.2 11.1 - 14.9 % [facility] RDW SD 45.2 35.7 - 48.1 fL [facility] NRBC abs 0.00 0.00 - 0.01 K/cumm [facility] Blood 06/21/2021 9:06 PM CDT 06/21/2021 9:31 PM CDT Cassie Trent TEXTILE MACHINE MAINTENANCE MECHANIC LAB BLOOD ORDERABLES [facility] al Result [facility] Department [place] [address] * Basic metabolic panel (06/21/2021 9:06 PM CDT) Sodium 140 135 - 145 mmol/L [facility] Potassium, pl 4.3 3.3 - 4.9 mmol/L [facility] Chloride 102 97 - 110 mmol/L [facility] CO2 29 22 - 32 mmol/L [facility] Anion gap 9 2 - 15 mmol/L [facility] BUN 14 8 - 25 mg/dL [facility] Creatinine 0.87 0.80 - 1.30 mg/dL [facility] Glucose 113 70 - 199 mg/dL [facility] Comment: Interpretive Data Fasting glucose [...] 2017. Calcium 8.9 8.5 - 10.3 mg/dL [facility] Blood 06/21/2021 9:06 PM CDT 06/21/2021 9:30 PM CDT Cassie Trent TEXTILE MACHINE MAINTENANCE MECHANIC LAB BLOOD ORDERABLES Fin al Result Performing Organization Address [facility] Co de Phone Number [facility] Department [place] [address] * Magnesium (06/20/2021 9:25 PM CDT) Pathologist [facility] Magnesium 1.7 1.4 - 2.5 mg/dL [facility] Blood 06/20/2021 9:25 PM CDT 06/20/2021 9:53 PM CDT Tamiko Ray TEXTILE MACHINE MAINTENANCE MECHANIC LAB BLOOD ORDERABLES Final R esult Performing Organization Address [facility] de Phone Number [facility] Department [place] [employer] [address] * eGFR (06/20/2021 9:25 PM CDT) Pathologist [facility] eGFR >90 90 - 130 mL/min/1. 73 m2 [facility] Comment: Interpretive Data Reference Interval [...] interpretive data was last reviewed 2021. Blood 06/20/2021 9:25 PM CDT 06/20/2021 9:53 PM CDT us Cassie Trnet NP LAB BLOOD ORDERABLES Fin al Result [facility] [address] [facility] [address] [place] [address] * (ABNORMAL) CBC without differential (06/20/2021 9:25 PM CDT) WBC 8.1 3.8 - 9.9 K/cumm [facility] Hgb 9.8(L) 13.0 - 17.5 g/dL [facility] Hct 29.1(L) 38.9 - 50.3 % [facility] Plt 163 150 - 400 K/cumm [facility] MPV 11.0 9.1 - 12.3 fL [facility] RBC 2.84(L) 4.30 - 5.80 M/cumm [facility] MCV 102.5(H) 81.3 - 96.4 fL [facility] MCH 34.5(H) 27.1 - 33.3 pg [facility] MCHC 33.7 32.3 - 35.7 g/dL [facility] RDW CV 12.1 11.1 - 14.9 % [facility] RDW SD 45.8 35.7 - 48.1 fL [facility] NRBC abs 0.00 0.00 - 0.01 K/cumm [facility] Blood 06/20/2021 9:25 PM CDT 06/20/2021 9:53 PM CDT [facility] Fin al Result Performing Organization Address City/[facility]/ZIP Co de Phone Number [facility] Department [place] [address] * (ABNORMAL) Basic metabolic panel (06/20/2021 9:25 PM CDT) [facility] Sodium 143 135 - 145 mmol/L [facility] Potassium, pl 3.6 3.3 - 4.9 mmol/L [facility] Chloride 110 97 - 110 mmol/L [facility] CO2 28 22 - 32 mmol/L [facility] Anion gap 5 2 - 15 mmol/L [facility] BUN 12 8 - 25 mg/dL [facility] Creatinine 0.70(L) 0.80 - 1.30 mg/dL [facility] Glucose 110 70 - 199 mg/dL [facility] Comment: Interpretive Data Fasting glucose [...] interpretive data was last revised 2017. Calcium 7.3(L) 8.5 - 10.3 mg/dL [facility] Blood 06/20/2021 9:25 PM CDT 06/20/2021 9:53 PM CDT Cassie Rika Trent LAB BLOOD ORDERABLES Fin al Result Performing Organization Address [facility] Co de Phone Number [facility] Department [place] [address] * (ABNORMAL) Blood gas, arterial (06/20/2021 8:12 AM CDT) [facility] pH, Art 7.42 7.35 - 7.45 [facility] PCO2, Arterial 43 35 - 45 mmHg [facility] PO2, Arterial 110(H) 83 - 108 mmHg [facility] HCO3 Art (Calculated) 29 20 - 30 mmol/L [facility] BE, art 3 mmol/L [facility] Comment: Interpretive Data No Reference Range Established Current Interpretive Data was last revised on 2017 O2 Sat Art (Measured) 99(H) 90 - 95 % [facility] Blood 06/20/2021 8:12 AM CDT 06/20/2021 8:26 AM CDT Tamiko Ray NP LAB BLOOD ORDERABLES Final R esult [facility] [place] [address] * Magnesium (06/19/2021 8:26 PM CDT) [facility] Magnesium 2.4 1.4 - 2.5 mg/dL [facility] Blood 06/19/2021 8:26 PM CDT 06/19/2021 8:47 PM CDT us Seth Kiser MD LAB BLOOD ORDERABLES [place] [address] * eGFR (06/19/2021 8:26 PM CDT) [facility] eGFR >90 90 - 130 mL/min/1. 73 m2 [facility] Comment: Interpretive Data Reference Interval [...] interpretive data was last reviewed 2021. Blood 06/19/2021 8:26 PM CDT 06/19/2021 8:47 PM CDT Cassie Trent TEXTILE MACHINE MAINTENANCE MECHANIC LAB BLOOD ORDERABLES Fin al Result [facility] [address] Department [place] [address] * (ABNORMAL) CBC without differential (06/19/2021 8:26 PM CDT) [facility] WBC 7.9 3.8 - 9.9 K/cumm [facility] Hgb 11.6(L) 13.0 - 17.5 g/dL [facility] Hct 35.1(L) 38.9 - 50.3 % [facility] Plt 192 150 - 400 K/cumm [facility] MPV 11.1 9.1 - 12.3 fL [facility] RBC 3.42(L) 4.30 - 5.80 M/cumm [facility] MCV 102.6(H) 81.3 - 96.4 fL [facility] MCH 33.9(H) 27.1 - 33.3 pg [facility] MCHC 33.0 32.3 - 35.7 g/dL [facility] RDW CV 12.3 11.1 - 14.9 % [facility] RDW SD 46.6 35.7 - 48.1 fL [facility] NRBC abs 0.00 0.00 - 0.01 K/cumm [facility] Blood 06/19/2021 8:26 PM CDT 06/19/2021 8:47 PM CDT Cassie Trent NP LAB BLOOD ORDERABLES Fin al Result [facility] [address] Department [place] [address] * Basic metabolic panel (06/19/2021 8:26 PM CDT) Sodium 144 135 - 145 mmol/L [facility] Potassium, pl 4.4 3.3 - 4.9 mmol/L [facility] Chloride 107 97 - 110 mmol/L [facility] CO2 30 22 - 32 mmol/L [facility] Anion gap 7 2 - 15 mmol/L [facility] BUN 14 8 - 25 mg/dL [facility] Creatinine 0.86 0.80 - 1.30 mg/dL [facility] Glucose 133 70 - 199 mg/dL [facility] Comment: Interpretive Data Fasting glucose [...] interpretive data was last revised 2017. Calcium 9.1 8.5 - 10.3 mg/dL [facility] Blood 06/19/2021 8:26 PM CDT 06/19/2021 8:47 PM CDT Cassie Trent TEXTILE MACHINE MAINTENANCE MECHANIC LAB BLOOD ORDERABLES Fin al Result [facility] [address] Department [place] [address] * XR Abdomen Ap 1 Vw (06/19/2021 4:38 AM CDT) Anatomical Region Laterality Modality Body, Abdomen N/A Computed Radiogr aphy 06/19/2021 8:15 AM CDT Impressions 06/19/2021 8:18 AM CDT A single view of the abdomen is submitted for evaluation. Gastric tube tip and side-port projecting over the gastric body. Partially visualized nonobstructive bowel gas pattern. The inferior pelvis is collimated off the [id number]. Dictated by: Srinivasan Holder M.D. The radiology attending physician has personally reviewed this study, and had reviewed and/or edited this written report and agrees with it. Electronically signed by: Tamar Bonilla M.D. Narrative 06/19/2021 8:18 AM CDT EXAMINATION: Abdomen, one view. HISTORY: Check tube placement. COMPARISON: Abdomen radiograph 06/12/2021, 11:49 AM Procedure Note Tamar Bonilla MD - 06/19/2021 EXAMINATION: Abdomen, one view. HISTORY: Check tube placement. COMPARISON: Abdomen radiograph 06/12/2021, 11:49 AM IMPRESSION: A single view of the abdomen is submitted for evaluation. Gastric tube tip and side-port projecting over the gastric body. Partially visualized nonobstructive bowel gas pattern. The inferior pelvis is collimated off the [id number]. Dictated by: Srinivasan Holder M.D. The radiology attending physician has personally reviewed this study, and had reviewed and/or edited this written report and agrees with it. Electronically signed by: Tamar Bonilla M.D. Candace Cummings TEXTILE MACHINE MAINTENANCE MECHANIC IMG XR PROCEDURES Final Resu lt * eGFR (06/18/2021 10:02 PM CDT) eGFR >90 90 - 130 mL/min/1. 73 m2 [facility] Comment: Interpretive Data Reference Interval Normal ?>/= [...] interpretive data was last reviewed 2021. Blood 06/18/2021 10:0 2 PM CDT 06/18/2021 11:46 PM CDT us Seth Kiser MD LAB BLOOD ORDERABLES Final Result [facility] [address] Department [place] [address] * (ABNORMAL) Comprehensive metabolic panel (06/18/2021 10:02 PM CDT) Sodium 148(H) 135 - 145 mmol/L [facility] Potassium, pl 3.4 3.3 - 4.9 mmol/L [facility] Chloride 114(H) 97 - 110 mmol/L [facility] CO2 27 22 - 32 mmol/L [facility] Anion gap 7 2 - 15 mmol/L [facility] BUN 14 8 - 25 mg/dL [facility] Creatinine 0.70(L) 0.80 - 1.30 mg/dL [facility] Glucose 115 70 - 199 mg/dL [facility] Comment: Interpretive Data Fasting glucose [...] interpretive data was last revised 2017. Calcium 7.4(L) 8.5 - 10.3 mg/dL [facility] Bilirubin, total 0.2 0.1 - 1.2 mg/dL [facility] Protein, pl 5.0(L) 6.5 - 8.5 g/dL [facility] Albumin 2.4(L) 3.5 - 5.0 g/dL [facility] Alk phos 91 40 - 130 Units/L [facility] ALT 12 7 - 55 Units/L [facility] AST 18 10 - 50 Units/L [facility] Blood 06/18/2021 10:0 2 PM CDT 06/18/2021 11:30 PM CDT us Seth Kiser MD LAB BLOOD ORDERABLES Final Result [facility] [address] Department [place] [address] * Phosphorus (06/18/2021 10:02 PM CDT) [facility] Phosphorus, pl 3.7 2.3 - 4.5 mg/dL [facility] Blood 06/18/2021 10:0 2 PM CDT 06/18/2021 11:30 PM CDT Patricia Ninoella Ferrer TEXTILE MACHINE MAINTENANCE MECHANIC LAB BLOOD ORDERABLES Final Result Performing Organization Address City/[facility] Co de Phone Number [facility] Department [place] [address] * Magnesium (06/18/2021 10:02 PM CDT) [facility] Magnesium 1.8 1.4 - 2.5 mg/dL [facility] Blood 06/18/2021 10:0 2 PM CDT 06/18/2021 11:30 PM CDT [facility] TEXTILE MACHINE MAINTENANCE MECHANIC LAB BLOOD ORDERABLES Final Result Performing Organization Address [facility] de Phone Number [facility] Department [place] [address] * (ABNORMAL) CBC without differential (06/18/2021 10:02 PM CDT) [facility] WBC 5.3 3.8 - 9.9 K/cumm [facility] Hgb 9.7(L) 13.0 - 17.5 g/dL [facility] Hct 29.4(L) 38.9 - 50.3 % [facility] Plt 141(L) 150 - 400 K/cumm [facility] MPV 11.6 9.1 - 12.3 fL [facility] RBC 2.78(L) 4.30 - 5.80 M/cumm [facility] MCV 105.8(H) 81.3 - 96.4 fL [facility] MCH 34.9(H) 27.1 - 33.3 pg [facility] MCHC 33.0 32.3 - 35.7 g/dL [facility] RDW CV 12.4 11.1 - 14.9 % [facility] RDW SD 48.7(H) 35.7 - 48.1 fL [facility] NRBC abs 0.00 0.00 - 0.01 K/cumm [facility] Blood 06/18/2021 10:0 2 PM CDT 06/18/2021 11:30 PM CDT Cassie Meléndez Miley TEXTILE MACHINE MAINTENANCE MECHANIC LAB BLOOD ORDERABLES Fin al Result Performing Organization Address City/State/[facility] Co de Phone Number [facility] [address] Department [place] [address] * XR Femur Left 2 or More Views (06/18/2021 6:58 PM CDT) Anatomical Region Laterality Modality Lower Extremities, Thigh, Femur Left Computed Radiography 06/19/2021 6:3 2 AM CDT Impressions 06/19/2021 6:32 AM CDT 1. ??Unchanged, minimally displaced left greater trochanter fracture Electronically signed by: Davie Peterson MD, PHD Narrative 06/19/2021 6:32 AM CDT EXAMINATION: Left hip 2 or 3 views of pelvis; left femur 2+ views HISTORY: ??Left greater trochanter fracture FINDINGS: 3 radiographs the pelvis and left hip and 4 radiographs left femur compared to CT examination from 06/17/2021. The minimally displaced left greater trochanter fracture is best seen on CT examination. No other fractures are noted. Both hip joint spaces appear normal and symmetric. 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 Lower lumbar degenerative disc disease is noted. Procedure Note Davie Peterson MD PhD - 06/19/2021 EXAMINATION: Left hip 2 or 3 views of pelvis; left femur 2+ views HISTORY: Left greater trochanter fracture FINDINGS: 3 radiographs the pelvis and left hip and 4 radiographs left femur compared to CT examination from 06/17/2021. The minimally displaced left greater trochanter fracture is best seen on CT examination. No other fractures are noted. Both hip joint spaces appear normal and symmetric. 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 Lower lumbar degenerative disc disease is noted. IMPRESSION: 1. Unchanged, minimally displaced left greater trochanter fracture Electronically signed by: Davie Peterson MD, PHD Seth Kiser MD IMG XR PROCEDURES Final Res ult * XR Hip Left 2 or 3 Views W Pelvis (06/18/2021 6:57 PM CDT) Anatomical Region Laterality Modality Lower Extremities, Hip, Pelvis Left C omputed Radiography 06/19/2021 6:32 AM CDT Impressions 06/19/2021 6:32 AM CDT 1. ??Unchanged, minimally displaced left greater trochanter fracture Electronically signed by: Davie Peterson MD, PHD Narrative 06/19/2021 6:32 AM CDT EXAMINATION: Left hip 2 or 3 views of pelvis; left femur 2+ views HISTORY: ??Left greater trochanter fracture FINDINGS: 3 radiographs the pelvis and left hip and 4 radiographs left femur compared to CT examination from 06/17/2021. The minimally displaced left greater trochanter fracture is best seen on CT examination. No other fractures are noted. Both hip joint spaces appear normal and symmetric. 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 Lower lumbar degenerative disc disease is noted. Procedure Note Davie Peterson MD PhD - 06/19/2021 EXAMINATION: Left hip 2 or 3 views of pelvis; left femur 2+ views HISTORY: Left greater trochanter fracture FINDINGS: 3 radiographs the pelvis and left hip and 4 radiographs left femur compared to CT examination from 06/17/2021. The minimally displaced left greater trochanter fracture is best seen on CT examination. No other fractures are noted. Both hip joint spaces appear normal and symmetric. 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 Lower lumbar degenerative disc disease is noted. IMPRESSION: 1. Unchanged, minimally displaced left greater trochanter fracture Electronically signed by: Davie Peterson MD, PHD Seth Kiser MD IMG XR PROCEDURES Final Res ult * CT Pelvis W Contrast (06/17/2021 10:57 PM GREEN MARKETING ANALYST) Anatomical Region Laterality Modality Body N/A Computed Tomogra phy 06/17/2021 11:1 6 PM GREEN MARKETING ANALYST Impressions 06/18/2021 9:35 AM CDT 1. Small left scrotal hydrocele. The trace cutaneous fluid in the left hemiscrotum is better evaluated on prior ultrasound. There is no soft tissue gas in the scrotum, perineum or proximal thighs. 2. Nondisplaced left greater trochanter fracture, new since the prior from 06/13/2020. Dictated by: Milo Ferreira The radiology attending physician has personally reviewed this study, and had reviewed and/or edited this written report and agrees with it. Electronically signed by: Zaki Crowell M.D. Narrative 06/18/2021 9:35 AM CDT EXAMINATION: ??Computed tomography of the pelvis with intravenous contrast HISTORY: Scrotal drainage, evaluate for scrotal abscess. Traumatic subarachnoid and intraventricular hemorrhage. TECHNIQUE: ??Transaxial computed tomographic images of the pelvis were obtained with ??intravenous contrast according to the standard protocol after the uneventful administration of 95 mL Opti-Ray 350 intravenous contrast. COMPARISON: Same day ultrasound, CT abdomen and pelvis 06/25/2020 FINDINGS: ?? There is moderate calcified atherosclerotic disease of the infrarenal abdominal aorta, iliacs and femoral arteries without aneurysmal change. The bladder is decompressed by catheter and contains small volume gas. The visualized loops of bowel are of normal caliber. The appendix is normal. There is severe diverticulosis without evidence diverticulitis. No free fluid in the pelvis. There is a small left hydrocele. The previously noted trace fluid in the inferior aspect of the scrotum is better evaluated on prior ultrasound. There is no soft tissue gas. There is a nondisplaced left greater trochanter fracture, new since the CT from 06/13/2020. Moderate L5-S1 degenerative disease. Procedure Note Zaki Crowell MD - 06/18/2021 EXAMINATION: Computed tomography of the pelvis with intravenous contrast HISTORY: Scrotal drainage, evaluate for scrotal abscess. Traumatic subarachnoid and intraventricular hemorrhage. TECHNIQUE: Transaxial computed tomographic images of the pelvis were obtained with intravenous contrast according to the standard protocol after the uneventful administration of 95 mL Opti-Ray 350 intravenous contrast. COMPARISON: Same day ultrasound, CT abdomen and pelvis 06/25/2020 FINDINGS: There is moderate calcified atherosclerotic disease of the infrarenal abdominal aorta, iliacs and femoral arteries without aneurysmal change. The bladder is decompressed by catheter and contains small volume gas. The visualized loops of bowel are of normal caliber. The appendix is normal. There is severe diverticulosis without evidence diverticulitis. No free fluid in the pelvis. There is a small left hydrocele. The previously noted trace fluid in the inferior aspect of the scrotum is better evaluated on prior ultrasound. There is no soft tissue gas. There is a nondisplaced left greater trochanter fracture, new since the CT from 06/13/2020. Moderate L5-S1 degenerative disease. IMPRESSION: 1. Small left scrotal hydrocele. The trace cutaneous fluid in the left hemiscrotum is better evaluated on prior ultrasound. There is no soft tissue gas in the scrotum, perineum or proximal thighs. 2. Nondisplaced left greater trochanter fracture, new since the prior from 06/13/2020. Dictated by: Milo Ferreira The radiology attending physician has personally reviewed this study, and had reviewed and/or edited this written report and agrees with it. Electronically signed by: Zaki Crowell M.D. Patricia Ferrer NP IMG CT PROCEDURES Fi nal Result * eGFR (06/17/2021 10:03 PM GREEN MARKETING ANALYST) [facility] eGFR >90 90 - 130 mL/min/1. 73 m2 [facility] Comment: Interpretive Data Reference Interval Normal ?>/= [...] interpretive data was last reviewed 2021. Blood 06/17/2021 10:0 3 PM GREEN MARKETING ANALYST 06/17/2021 10:47 PM GREEN MARKETING ANALYST Cassie Trent TEXTILE MACHINE MAINTENANCE MECHANIC LAB BLOOD ORDERABLES Fin al Result Performing Organization Address [facility] de Phone Number [facility] Department [place] [address] * (ABNORMAL) Blood gas, arterial (06/17/2021 10:03 PM GREEN MARKETING ANALYST) pH, Art 7.45 7.35 - 7.45 [facility] PCO2, Arterial 41 35 - 45 mmHg [facility] PO2, Arterial 170(H) 83 - 108 mmHg [facility] HCO3 Art (Calculated) 30 20 - 30 mmol/L [facility] BE, art 4 mmol/L [facility] Comment: Interpretive Data No Reference Range Established Current Interpretive Data was last revised on 2017 O2 Sat Art (Measured) 99(H) 90 - 95 % [facility] Blood 06/17/2021 10:0 3 PM GREEN MARKETING ANALYST 06/17/2021 10:38 PM GREEN MARKETING ANALYST Digna Carter TEXTILE MACHINE MAINTENANCE MECHANIC LAB BLOOD ORDERABLES Final Resul t Performing Organization Address [facility] Co de Phone Number [facility] Department [place] [address] * (ABNORMAL) CBC without differential (06/17/2021 10:03 PM GREEN MARKETING ANALYST) WBC 6.6 3.8 - 9.9 K/cumm [facility] Hgb 10.7(L) 13.0 - 17.5 g/dL [facility] Hct 33.0(L) 38.9 - 50.3 % [facility] Plt 151 150 - 400 K/cumm [facility] MPV 11.8 9.1 - 12.3 fL [facility] RBC 3.11(L) 4.30 - 5.80 M/cumm [facility] MCV 106.1(H) 81.3 - 96.4 fL [facility] MCH 34.4(H) 27.1 - 33.3 pg [facility] MCHC 32.4 32.3 - 35.7 g/dL [facility] RDW CV 12.7 11.1 - 14.9 % [facility] RDW SD 49.7(H) 35.7 - 48.1 fL [facility] NRBC abs 0.00 0.00 - 0.01 K/cumm [facility] Blood 06/17/2021 10:0 3 PM GREEN MARKETING ANALYST 06/17/2021 10:45 PM GREEN MARKETING ANALYST Cassie Trent TEXTILE MACHINE MAINTENANCE MECHANIC LAB BLOOD ORDERABLES Fin al Result [facility] [address] Department [place] [address] * (ABNORMAL) Basic metabolic panel (06/17/2021 10:03 PM GREEN MARKETING ANALYST) Sodium 147(H) 135 - 145 mmol/L [facility] Potassium, pl 4.3 3.3 - 4.9 mmol/L [facility] Chloride 110 97 - 110 mmol/L [facility] CO2 31 22 - 32 mmol/L [facility] Anion gap 6 2 - 15 mmol/L [facility] BUN 17 8 - 25 mg/dL [facility] Creatinine 0.80 0.80 - 1.30 mg/dL [facility] Glucose 152 70 - 199 mg/dL [facility] Comment: Interpretive Data Fasting glucose [...] interpretive data was last revised 2017. Calcium 8.8 8.5 - 10.3 mg/dL [facility] Blood 06/17/2021 10:0 3 PM GREEN MARKETING ANALYST 06/17/2021 10:40 PM GREEN MARKETING ANALYST Cassie Howardpr TEXTILE MACHINE MAINTENANCE MECHANIC LAB BLOOD ORDERABLES Fin al Result Performing Organization Address City/[facility] de Phone Number [facility] Department [place] [address] * Magnesium (06/17/2021 10:03 PM GREEN MARKETING ANALYST) Magnesium 2.3 1.4 - 2.5 mg/dL [facility] Blood 06/17/2021 10:0 3 PM GREEN MARKETING ANALYST 06/17/2021 10:40 PM GREEN MARKETING ANALYST [facility] LAB BLOOD ORDERABLES Fin al Result Performing Organization Address [facility] de Phone Number [facility] Department [place] [employer] [place] [address] * Phosphorus (06/17/2021 10:03 PM GREEN MARKETING ANALYST) Phosphorus, pl 3.3 2.3 - 4.5 mg/dL [facility] Blood 06/17/2021 10:0 3 PM GREEN MARKETING ANALYST 06/17/2021 10:40 PM GREEN MARKETING ANALYST [facility] TEXTILE MACHINE MAINTENANCE MECHANIC LAB BLOOD ORDERABLES Fin al Result Performing Organization Address City/[facility] Co de Phone Number [facility] Department [place] [address] * XR Chest 1 View (06/17/2021 9:20 PM GREEN MARKETING ANALYST) Anatomical Region Laterality Modality Body, Chest N/A Computed Radiogr aphy 06/18/2021 7:51 AM CDT Impressions 06/18/2021 7:51 AM CDT Comparison is made to the prior exam from 06/16/2021. ??An endotracheal tube is approximately ??3 centimeters above the jhonny. ?? A nasogastric tube extends below the hemidiaphragm. ??Esophageal temperature probe is seen terminating in the proximal esophagus. ?? Streaky right basilar opacities are seen likely representing aspiration. ??Mild pulmonary edema is noted, increased. ??Mild left basilar atelectasis is seen, increased. ??The costophrenic angles are excluded. ??There is no pneumothorax. ??The cardiomediastinal silhouette is stable. Electronically signed by: Lupillo Martinez M.D. Narrative 06/18/2021 7:51 AM CDT EXAMINATION: Chest 1 view Procedure Note Lupillo Martinez MD - 06/18/2021 EXAMINATION: Chest 1 view IMPRESSION: Comparison is made to the prior exam from 06/16/2021. An endotracheal tube is approximately 3 centimeters above the jhonny. A nasogastric tube extends below the hemidiaphragm. Esophageal temperature probe is seen terminating in the proximal esophagus. Streaky right basilar opacities are seen likely representing aspiration. Mild pulmonary edema is noted, increased. Mild left basilar atelectasis is seen, increased. The costophrenic angles are excluded. There is no pneumothorax. The cardiomediastinal silhouette is stable. Electronically signed by: Lupillo Martinez M.D. us Digna Carter NP IMG XR PROCEDURES Final Result * US Scrotum (06/17/2021 7:13 PM GREEN MARKETING ANALYST) Anatomical Region Laterality Modality Testis N/A Ultrasound 06/17/2021 7:26 PM GREEN MARKETING ANALYST Impressions 06/18/2021 11:50 AM CDT 1. Normal sonographic evaluation of both testes. 2. Small simple left hydrocele. 3. Subcutaneous thickening and soft tissue hyperemia on the underside of the left hemiscrotum with a thin, crescentic fluid collection which may be secondary to cellulitis. Dictated by: Milo Ferreira The radiology attending physician has personally reviewed this study, and had reviewed and/or edited this written report and agrees with it. Electronically signed by: Salome Gilliland M.D. Narrative 06/18/2021 11:50 AM CDT EXAMINATION: SCROTAL SONOGRAM HISTORY: ??Drainage from the scrotum, evaluate for abscess. COMPARISON: ??None FINDINGS: The testes are normal in size and appearance. The right testis measures 4.7 cm by 2. cm by 2.0 cm and the left measures ??4.3 cm by 3.6 cm by 1.9 cm. No focal lesions are seen. The right and left epididymis are normal with the exception of a 7 mm cyst in the right epididymal head. There is a simple left hydrocele. There is thickening of the subcutaneous tissues in the underside of the left hemiscrotum with associated soft tissue hyperemia, with a thin sliver of hypoechoic fluid measuring 2.5 x 1.7 x 0.3 cm. Procedure Note Salome Gilliland MD - 06/18/2021 EXAMINATION: SCROTAL SONOGRAM HISTORY: Drainage from the scrotum, evaluate for abscess. COMPARISON: None FINDINGS: The testes are normal in size and appearance. The right testis measures 4.7 cm by 2. cm by 2.0 cm and the left measures 4.3 cm by 3.6 cm by 1.9 cm. No focal lesions are seen. The right and left epididymis are normal with the exception of a 7 mm cyst in the right epididymal head. There is a simple left hydrocele. There is thickening of the subcutaneous tissues in the underside of the left hemiscrotum with associated soft tissue hyperemia, with a thin sliver of hypoechoic fluid measuring 2.5 x 1.7 x 0.3 cm. IMPRESSION: 1. Normal sonographic evaluation of both testes. 2. Small simple left hydrocele. 3. Subcutaneous thickening and soft tissue hyperemia on the underside of the left hemiscrotum with a thin, crescentic fluid collection which may be secondary to cellulitis. Dictated by: Milo Ferreira The radiology attending physician has personally reviewed this study, and had reviewed and/or edited this written report and agrees with it. Electronically signed by: Salome Gilliland M.D. us Seth Kiser MD IMG US PROCEDURES Final Res ult * (ABNORMAL) Aerobic and anaerobic culture and gram stain Abscess Scrotum (06/17/2021 1:47 PM GREEN MARKETING ANALYST) Direct Specimen Exam Stain: Abundant polymorphonuclear leukocytes seen. Abundant Gram Positive Cocci Moderate Gram Negative Bacilli [facility] Report Final Report: Abundant Bacteroides fragilis A molecular marker associated with carbapenem resistance has been detected in this isolate of Bacteroides fragilis. Please see phenotypic antimicrobial susceptibility testing result. Susceptibilities performed by [facility], ?? * ??* ??* ??* ??* ??* ??* ??* ??* ??* ??* ??* ??* ??* ??* ??* ??* ??* ??* ??* For Bacteroides fragilis susceptibility results, see attached scanned report. * ??* ??* ??* ??* ??* ??* ??* ??* ??* ??* ??* ??* ??* ??* ??* ??* ??* ??* ??* Few Mixed microorganisms. (.) [facility] Organism MIXED MICROORGANISMS. [facility] Organism BACTEROIDES FRAGILIS [facility] Abscess (Scrotum) 06/17/2021 1:47 PM GREEN MARKETING ANALYST 06/17/2021 4:35 PM GREEN MARKETING ANALYST Narrative D[facility] FALCON - 06/28/2021 10:46 AM CDT Testing performed by [facility] ([phone]) Specimens submitted from normally sterile body sites will have all bacterial morphotypes identified. Specimens that contain grossly mixed clifton and/or are from body sites that are not normally sterile will be examined for Staphylococcus aureus, Pseudomonas aeruginosa, beta-hemolytic strep, vancomycin-resistant Enterococcus, Bacteroides, Parabacteroides, Clostridium perfringens and fungus. If any of these are isolated, the organism will be reported. Current interpretive data was last revised on 2019. us Seth Kiser MD LAB MICROBIOLOGY - GENERAL ORDERABLES Final Result [facility] [address] Department [place] [address] * eGFR (06/17/2021 8:17 AM GREEN MARKETING ANALYST) [facility] eGFR >90 90 - 130 mL/min/1. 73 m2 [facility] Comment: Interpretive Data Reference Interval Normal ?>/= [...] interpretive data was last reviewed 2021. Blood 06/17/2021 8:17 AM GREEN MARKETING ANALYST 06/17/2021 9:37 AM GREEN MARKETING ANALYST us Cassie Rika Arackal TEXTILE MACHINE MAINTENANCE MECHANIC LAB BLOOD ORDERABLES Fin al Result Performing Organization Address City/[facility] Co de Phone Number [facility] [place] [address] * (ABNORMAL) Magnesium (06/17/2021 8:17 AM GREEN MARKETING ANALYST) [facility] Magnesium 2.7(H) 1.4 - 2.5 mg/dL [facility] Blood 06/17/2021 8:17 AM GREEN MARKETING ANALYST 06/17/2021 9:37 AM GREEN MARKETING ANALYST Cassie Rika Trent TEXTILE MACHINE MAINTENANCE MECHANIC LAB BLOOD ORDERABLES Fin al Result Performing Organization Address [facility] Co de Phone Number [facility] [place] [address] * Phosphorus (06/17/2021 8:17 AM GREEN MARKETING ANALYST) [facility] Phosphorus, pl 2.9 2.3 - 4.5 mg/dL [facility] Blood 06/17/2021 8:17 AM GREEN MARKETING ANALYST 06/17/2021 9:37 AM GREEN MARKETING ANALYST Cassie Meléndez Miley TEXTILE MACHINE MAINTENANCE MECHANIC LAB BLOOD ORDERABLES Fin al Result Performing Organization Address [facility] Co de Phone Number [facility] [place] [address] * (ABNORMAL) Basic metabolic panel (06/17/2021 8:17 AM GREEN MARKETING ANALYST) [facility] Sodium 144 135 - 145 mmol/L [facility] Potassium, pl 4.3 3.3 - 4.9 mmol/L [facility] Chloride 110 97 - 110 mmol/L [facility] CO2 30 22 - 32 mmol/L [facility] Anion gap 4 2 - 15 mmol/L [facility] BUN 17 8 - 25 mg/dL [facility] Creatinine 0.79(L) 0.80 - 1.30 mg/dL [facility] Glucose 150 70 - 199 mg/dL [facility] Comment: Interpretive Data Fasting glucose [...] 2017. Calcium 8.6 8.5 - 10.3 mg/dL [facility] Blood 06/17/2021 8:17 AM GREEN MARKETING ANALYST 06/17/2021 9:37 AM GREEN MARKETING ANALYST Cassie Trent TEXTILE MACHINE MAINTENANCE MECHANIC LAB BLOOD ORDERABLES Fin al Result Performing Organization Address [facility] Co de Phone Number [facility] Department [place] [address] * Calcium, ionized (06/16/2021 11:47 PM GREEN MARKETING ANALYST) Pathologist [facility] Calcium, Ionized 4.81 4.50 - 5.10 mg/dL [facility] Blood 06/16/2021 11:4 7 PM GREEN MARKETING ANALYST 06/16/2021 11:57 PM GREEN MARKETING ANALYST Digna Carter TEXTILE MACHINE MAINTENANCE MECHANIC LAB BLOOD ORDERABLES Final Resul t Performing Organization Address City/[facility] Co de Phone Number [facility] Department [place] [address] * (ABNORMAL) Blood gas, arterial (06/16/2021 10:24 PM GREEN MARKETING ANALYST) pH, Art 7.46(H) 7.35 - 7.45 [facility] PCO2, Arterial 40 35 - 45 mmHg [facility] PO2, Arterial 107 83 - 108 mmHg [facility] HCO3 Art (Calculated) 29 20 - 30 mmol/L [facility] BE, art 4 mmol/L [facility] Comment: Interpretive Data No Reference Range Established Current Interpretive Data was last revised on 2017 O2 Sat Art (Measured) 99(H) 90 - 95 % [facility] Blood 06/16/2021 10:2 4 PM GREEN MARKETING ANALYST 06/16/2021 10:33 PM GREEN MARKETING ANALYST us Digna Carter TEXTILE MACHINE MAINTENANCE MECHANIC LAB BLOOD ORDERABLES Final Resul t [facility] [address] Department [place] [address] * eGFR (06/16/2021 9:35 PM GREEN MARKETING ANALYST) eGFR >90 90 - 130 mL/min/1. 73 m2 [facility] Comment: Interpretive Data Reference Interval Normal ?>/= [...] interpretive data was last reviewed 2021. Blood 06/16/2021 9:35 PM GREEN MARKETING ANALYST 06/16/2021 10:05 PM GREEN MARKETING ANALYST Cassie Trent TEXTILE MACHINE MAINTENANCE MECHANIC LAB BLOOD ORDERABLES Fin al Result [facility] Department [place] [address] * (ABNORMAL) CBC without differential (06/16/2021 9:35 PM GREEN MARKETING ANALYST) [facility] WBC 5.3 3.8 - 9.9 K/cumm [facility] Hgb 8.9(L) 13.0 - 17.5 g/dL [facility] Comment:No apparent cause fo r delta. Discrepancy noted. Delicia Recinos RN Hct 27.5(L) 38.9 - 50.3 % [facility] Plt 101(L) 150 - 400 K/cumm [facility] MPV 11.3 9.1 - 12.3 fL [facility] RBC 2.58(L) 4.30 - 5.80 M/cumm [facility] MCV 106.6(H) 81.3 - 96.4 fL [facility] Comment:No apparent cause fo r delta. Delicia Recinos RN MCH 34.5(H) 27.1 - 33.3 pg [facility] MCHC 32.4 32.3 - 35.7 g/dL [facility] RDW CV 13.1 11.1 - 14.9 % [facility] RDW SD 51.0(H) 35.7 - 48.1 fL [facility] NRBC abs 0.00 0.00 - 0.01 K/cumm [facility] Blood 06/16/2021 9:35 PM GREEN MARKETING ANALYST 06/16/2021 10:01 PM GREEN MARKETING ANALYST Cassie Trent TEXTILE MACHINE MAINTENANCE MECHANIC LAB BLOOD ORDERABLES Fin al Result [facility] Department [place] [address] * (ABNORMAL) Basic metabolic panel (06/16/2021 9:35 PM GREEN MARKETING ANALYST) Sodium 149(H) 135 - 145 mmol/L [facility] Potassium, pl 3.0(L) 3.3 - 4.9 mmol/L [facility] Chloride 118(H) 97 - 110 mmol/L [facility] CO2 26 22 - 32 mmol/L [facility] Anion gap 5 2 - 15 mmol/L [facility] BUN 15 8 - 25 mg/dL [facility] Creatinine 0.69(L) 0.80 - 1.30 mg/dL [facility] Glucose 149 70 - 199 mg/dL [facility] Comment: Interpretive Data Fasting glucose [...] interpretive data was last revised 2017. Calcium 6.9(L) 8.5 - 10.3 mg/dL [facility] Blood 06/16/2021 9:35 PM GREEN MARKETING ANALYST 06/16/2021 9:59 PM GREEN MARKETING ANALYST Cassie Trent LAB BLOOD ORDERABLES Fin al Result Performing Organization Address [facility] Co de Phone Number [facility] [address] Department [place] [address] * Magnesium (06/16/2021 9:35 PM GREEN MARKETING ANALYST) Pathologist [facility] Magnesium 1.6 1.4 - 2.5 mg/dL [facility] Blood 06/16/2021 9:35 PM GREEN MARKETING ANALYST 06/16/2021 9:59 PM GREEN MARKETING ANALYST [facility]LO[facility] ORDERABLES Fin al Result [facility] Department [place] [address] * Phosphorus (06/16/2021 9:35 PM GREEN MARKETING ANALYST) Phosphorus, pl 2.5 2.3 - 4.5 mg/dL [facility] Blood 06/16/2021 9:35 PM GREEN MARKETING ANALYST 06/16/2021 9:59 PM GREEN MARKETING ANALYST Cassie Trent TEXTILE MACHINE MAINTENANCE MECHANIC LAB BLOOD ORDERABLES Fin al Result [facility] Department [place] [address] * XR Chest 1 View (06/16/2021 9:27 PM GREEN MARKETING ANALYST) Anatomical Region Laterality Modality Body, Chest N/A Computed Radiogr aphy 06/17/2021 7:52 AM GREEN MARKETING ANALYST Impressions 06/17/2021 7:52 AM GREEN MARKETING ANALYST Comparison, 06/15/2021. Endotracheal tube tip is 3 cm above the jhonny. Gastric tube is in place, tip below the diaphragm. The lungs are slightly hyperinflated, suggestive of underlying pulmonary emphysema. Proximal pulmonary arteries remain mildly enlarged. There is some minimal bibasilar subsegmental atelectasis. This is improved in comparison to the previous examination. There is no pleural effusion or pneumothorax. Mild cardiomegaly with atherosclerotic aorta is stable. Electronically signed by: Laura Conner M.D. Narrative 06/17/2021 7:52 AM GREEN MARKETING ANALYST EXAMINATION: 1 view chest radiograph Procedure Note Laura Conner MD - 06/17/2021 EXAMINATION: 1 view chest radiograph IMPRESSION: Comparison, 06/15/2021. Endotracheal tube tip is 3 cm above the jhonny. Gastric tube is in place, tip below the diaphragm. The lungs are slightly hyperinflated, suggestive of underlying pulmonary emphysema. Proximal pulmonary arteries remain mildly enlarged. There is some minimal bibasilar subsegmental atelectasis. This is improved in comparison to the previous examination. There is no pleural effusion or pneumothorax. Mild cardiomegaly with atherosclerotic aorta is stable. Electronically signed by: Laura Conner M.D. Digna Carter TEXTILE MACHINE MAINTENANCE MECHANIC IMG XR PROCEDURES Final Result * Aerobic culture and gram stain Tracheal aspirate Sputum (Cytology) (06/16/2021 6:48 PM GREEN MARKETING ANALYST) Direct Specimen Exam Stain: Abundant polymorphonuclear leukocytes seen. Few squamous epithelial cells seen. Moderate mixed bacterial clifton seen on Gram stain. [facility] Report Final Report: Insignificant growth based on current clinical standards. [facility] Tracheal aspirate (Sputum) 06/16/2021 6:48 PM GREEN MARKETING ANALYST 06/16/2021 6:55 PM GREEN MARKETING ANALYST Narrative [facility] - 06/19/2021 9:56 AM CDT Testing performed by [facility] ([phone]) Specimens submitted from normally sterile body sites will have all bacterial morphotypes identified. ??Specimens that contain grossly mixed clifton and/or are from body sites that are not normally sterile will be examined for Staphylococcus aureus, Pseudomonas aeruginosa, beta-hemolytic strep, vancomycin-resistant Enterococcus and fungus. ??If any of these are isolated, the organism will be reported. Current interpretive data was last revised on 2016. Patricia Ferrer NP LAB MICROBIOLOGY - G ENERAL ORDERABLES Final Result [facility] [address] Department [place] [address] * eGFR (06/16/2021 9:02 AM GREEN MARKETING ANALYST) eGFR >90 90 - 130 mL/min/1. 73 m2 [facility] Comment: Interpretive Data Reference Interval [...] interpretive data was last reviewed 2021. Blood 06/16/2021 9:02 AM GREEN MARKETING ANALYST 06/16/2021 9:14 AM GREEN MARKETING ANALYST Cassie Trent TEXTILE MACHINE MAINTENANCE MECHANIC LAB BLOOD ORDERABLES Fin al Result Performing Organization Address City/[facility]/ZIP Co de Phone Number [facility] [place] [address] * Magnesium (06/16/2021 9:02 AM GREEN MARKETING ANALYST) Magnesium 2.1 1.4 - 2.5 mg/dL [facility] Blood 06/16/2021 9:02 AM GREEN MARKETING ANALYST 06/16/2021 9:14 AM GREEN MARKETING ANALYST Cassie Trent TEXTILE MACHINE MAINTENANCE MECHANIC LAB BLOOD ORDERABLES Fin al Result [facility] [place] [address] * Phosphorus (06/16/2021 9:02 AM GREEN MARKETING ANALYST) Phosphorus, pl 3.4 2.3 - 4.5 mg/dL [facility] Blood 06/16/2021 9:02 AM GREEN MARKETING ANALYST 06/16/2021 9:14 AM GREEN MARKETING ANALYST Cassie Trent TEXTILE MACHINE MAINTENANCE MECHANIC LAB BLOOD ORDERABLES Fin al Result [facility] Department [place] [address] * (ABNORMAL) Basic metabolic panel (06/16/2021 9:02 AM GREEN MARKETING ANALYST) [facility] Sodium 147(H) 135 - 145 mmol/L [facility] Potassium, pl 4.1 3.3 - 4.9 mmol/L [facility] Chloride 111(H) 97 - 110 mmol/L [facility] CO2 32 22 - 32 mmol/L [facility] Anion gap 4 2 - 15 mmol/L [facility] BUN 17 8 - 25 mg/dL [facility] Creatinine 0.87 0.80 - 1.30 mg/dL [facility] Glucose 160 70 - 199 mg/dL [facility] Comment: Interpretive Data Fasting glucose [...] interpretive data was last revised 2017. Calcium 9.0 8.5 - 10.3 mg/dL [facility] Blood 06/16/2021 9:02 AM GREEN MARKETING ANALYST 06/16/2021 9:14 AM GREEN MARKETING ANALYST Cassie Trent TEXTILE MACHINE MAINTENANCE MECHANIC LAB BLOOD ORDERABLES Fin al Result Performing Organization Address City/[facility]/ZIP Co de Phone Number [facility] Department [place] [address] * Potassium, whole blood (06/15/2021 10:34 PM GREEN MARKETING ANALYST) Pathologist [facility] Potassium, bld 4.2 3.3 - 4.9 mmol/L [facility] Blood 06/15/2021 10:3 4 PM GREEN MARKETING ANALYST 06/15/2021 10:46 PM GREEN MARKETING ANALYST Digna Carter TEXTILE MACHINE MAINTENANCE MECHANIC LAB BLOOD ORDERABLES Final Resul t Performing Organization Address [facility] Co de Phone Number [facility] Department [place] [address] * (ABNORMAL) CBC without differential (06/15/2021 10:34 PM GREEN MARKETING ANALYST) [facility] WBC 7.6 3.8 - 9.9 K/cumm [facility] Hgb 12.1(L) 13.0 - 17.5 g/dL [facility] Hct 34.0(L) 38.9 - 50.3 % [facility] Plt 126(L) 150 - 400 K/cumm [facility] MPV 11.1 9.1 - 12.3 fL [facility] RBC 3.39(L) 4.30 - 5.80 M/cumm [facility] MCV 100.3(H) 81.3 - 96.4 fL [facility] MCH 35.7(H) 27.1 - 33.3 pg [facility] MCHC 35.6 32.3 - 35.7 g/dL [facility] RDW CV 12.9 11.1 - 14.9 % [facility] RDW SD 48.0 35.7 - 48.1 fL [facility] NRBC abs 0.00 0.00 - 0.01 K/cumm [facility] Blood 06/15/2021 10:3 4 PM GREEN MARKETING ANALYST 06/15/2021 10:50 PM GREEN MARKETING ANALYST Cassie Trent TEXTILE MACHINE MAINTENANCE MECHANIC LAB BLOOD ORDERABLES Fin al Result Performing Organization Address City/[facility]/ZIP Co de Phone Number [facility] [address] Department [place] [address] * eGFR (06/15/2021 8:57 PM GREEN MARKETING ANALYST) Pathologist [facility] eGFR >90 90 - 130 mL/min/1. 73 m2 [facility] Comment: Interpretive Data Reference Interval Normal ?>/= [...] interpretive data was last reviewed 2021. Blood 06/15/2021 8:57 PM GREEN MARKETING ANALYST 06/15/2021 9:14 PM GREEN MARKETING ANALYST us Cassie Trent TEXTILE MACHINE MAINTENANCE MECHANIC LAB BLOOD ORDERABLES Fin al Result [facility] [address] Department [place] [address] * (ABNORMAL) Basic metabolic panel (06/15/2021 8:57 PM GREEN MARKETING ANALYST) [facility] Sodium 145 135 - 145 mmol/L [facility] Potassium, pl 5.3(H) 3.3 - 4.9 mmol/L [facility] Comment:Hemolyzed; Potassium value may be falsely elevated by as much as 1.1-1.6 mmol/L. Suggest redraw and reanalysis. Chloride 111(H) 97 - 110 mmol/L [facility] CO2 28 22 - 32 mmol/L [facility] Anion gap 6 2 - 15 mmol/L [facility] BUN 17 8 - 25 mg/dL [facility] Creatinine 0.88 0.80 - 1.30 mg/dL [facility] Glucose 174 70 - 199 mg/dL [facility] Comment: Interpretive Data Fasting glucose [...] 2017. Calcium 8.9 8.5 - 10.3 mg/dL [facility] Blood 06/15/2021 8:57 PM GREEN MARKETING ANALYST 06/15/2021 9:14 PM GREEN MARKETING ANALYST Cassie Trent TEXTILE MACHINE MAINTENANCE MECHANIC LAB BLOOD ORDERABLES Fin al Result [facility] [address] Department [place] [address] * Magnesium (06/15/2021 8:57 PM GREEN MARKETING ANALYST) Magnesium 2.1 1.4 - 2.5 mg/dL [facility] Blood 06/15/2021 8:57 PM GREEN MARKETING ANALYST 06/15/2021 9:14 PM GREEN MARKETING ANALYST Cassie Trent LAB BLOOD ORDERABLES Fin al Result [facility] [address] [place] [address] * Phosphorus (06/15/2021 8:57 PM GREEN MARKETING ANALYST) Phosphorus, pl 3.7 2.3 - 4.5 mg/dL [facility] Blood 06/15/2021 8:57 PM GREEN MARKETING ANALYST 06/15/2021 9:14 PM GREEN MARKETING ANALYST Cassie Trent TEXTILE MACHINE MAINTENANCE MECHANIC LAB BLOOD ORDERABLES Fin al Result Performing Organization Address [facility] Co de Phone Number [facility] [place] [address] * XR Chest 1 View (06/15/2021 8:08 PM GREEN MARKETING ANALYST) Anatomical Region Laterality Modality Body, Chest N/A Computed Radiogr aphy 06/16/2021 8:49 AM GREEN MARKETING ANALYST Impressions 06/16/2021 9:26 AM GREEN MARKETING ANALYST The current study is compared with the prior radiograph dated ??06/15/2021 2:59 AM. Endotracheal tube terminates approximately 2 cm above the jhonny. Gastric tube courses below the diaphragm. Small lung volumes with mild bibasilar atelectasis versus aspiration, mildly increased from same day prior. No pneumothorax or pleural effusion. Cardiomediastinal silhouette is unchanged. Dictated by: Saqib Campa M.D. The radiology attending physician has personally reviewed this study, and had reviewed and/or edited this written report and agrees with it. Electronically signed by: Jennifer Barajas M.D. Narrative 06/16/2021 9:26 AM GREEN MARKETING ANALYST EXAMINATION: 1 view chest radiograph Procedure Note Jennifer Barajas MD - 06/16/2021 EXAMINATION: 1 view chest radiograph IMPRESSION: The current study is compared with the prior radiograph dated 06/15/2021 2:59 AM. Endotracheal tube terminates approximately 2 cm above the jhonny. Gastric tube courses below the diaphragm. Small lung volumes with mild bibasilar atelectasis versus aspiration, mildly increased from same day prior. No pneumothorax or pleural effusion. Cardiomediastinal silhouette is unchanged. Dictated by: Saqib Campa M.D. The radiology attending physician has personally reviewed this study, and had reviewed and/or edited this written report and agrees with it. Electronically signed by: Jennifer Barajas M.D. Digna Carter NP IMG XR PROCEDURES Final Result * (ABNORMAL) eGFR (06/15/2021 8:00 AM GREEN MARKETING ANALYST) eGFR 84(L) 90 - 130 mL/min/1. 73 m2 [facility] Comment: Interpretive Data Reference Interval Normal ?>/= [...] interpretive data was last reviewed 2021. Blood 06/15/2021 8:00 AM GREEN MARKETING ANALYST 06/15/2021 8:11 AM GREEN MARKETING ANALYST us Cassie Trent TEXTILE MACHINE MAINTENANCE MECHANIC LAB BLOOD ORDERABLES Fin al Result Performing Organization Address City/[facility] Co de Phone Number [facility] [place] [address] * Magnesium (06/15/2021 8:00 AM GREEN MARKETING ANALYST) [facility] Magnesium 1.9 1.4 - 2.5 mg/dL [facility] Blood 06/15/2021 8:00 AM GREEN MARKETING ANALYST 06/15/2021 8:11 AM GREEN MARKETING ANALYST Cassie Trent TEXTILE MACHINE MAINTENANCE MECHANIC LAB BLOOD ORDERABLES Fin al Result Performing Organization Address [facility] Co de Phone Number [facility] Department [place] [address] * Phosphorus (06/15/2021 8:00 AM GREEN MARKETING ANALYST) [facility] Phosphorus, pl 3.1 2.3 - 4.5 mg/dL [facility] Blood 06/15/2021 8:00 AM GREEN MARKETING ANALYST 06/15/2021 8:11 AM GREEN MARKETING ANALYST Cassiediony Trent TEXTILE MACHINE MAINTENANCE MECHANIC LAB BLOOD ORDERABLES Fin al Result Performing Organization Address [facility] de Phone Number [facility] [place] [address] * (ABNORMAL) Basic metabolic panel (06/15/2021 8:00 AM GREEN MARKETING ANALYST) Pathologist [facility] Sodium 147(H) 135 - 145 mmol/L [facility] Potassium, pl 3.9 3.3 - 4.9 mmol/L [facility] Chloride 112(H) 97 - 110 mmol/L [facility] CO2 30 22 - 32 mmol/L [facility] Anion gap 5 2 - 15 mmol/L [facility] BUN 14 8 - 25 mg/dL [facility] Creatinine 0.97 0.80 - 1.30 mg/dL [facility] Glucose 158 70 - 199 mg/dL [facility] Comment: Interpretive Data Fasting glucose [...] 2017. Calcium 8.5 8.5 - 10.3 mg/dL [facility] Blood 06/15/2021 8:00 AM GREEN MARKETING ANALYST 06/15/2021 8:11 AM GREEN MARKETING ANALYST us Cassie Trent NP LAB BLOOD ORDERABLES Fin al Result [facility] [address] [facility] [place] [address] * EEG (06/15/2021 7:40 AM GREEN MARKETING ANALYST) Anatomical Region Laterality Modality EEG Narrative 06/15/2021 2:09 PM GREEN MARKETING ANALYST Routine EEG Report Patient Name: Jania Redman [facility] Medical Record Number (MRN): [id number] [facility] Ed Record: [id number] Date of (): 1950 EEG Date: 06/15/2021 Ordering Provider: Digna Carter NP CC: Jean-Claude Salazar Start Time: 06/15/2021 6:56:29 AM ? End Time: ??06/15/2021 7:18:22 AM Introduction: Mr. Redman is a 71 y.o. male with a history of A-fib, HTN, HLD, HFpEF, COPD, and alcohol abuse, who presented with altered mental status. EEG was performed to evaluate for seizures. This is a 32 channel EEG recording acquired on a [employer] EEG-1200 acquisition system. Scalp electrodes were placed according to the international 10-20 System. The analog EEG was filtered from 1-70 Hz and digitally sampled at 200 Hz. The record was then reformatted for review in bipolar and referential montages. EEG Description: There was excessive EMG and movement artifact during the recording. There was no well-developed posterior rhythm. The background consisted of bilateral, diffuse, asynchronous admixed theta and delta range activity. The record showed variability. Hyperventilation and photic strobe stimulation were not performed. There were no focal, lateralized or epileptiform abnormalities. Interpretation: The EEG was abnormal due to moderate generalized slowing. Generalized slowing indicates diffuse cerebral dysfunction as seen in metabolic, toxic, or diffuse or multifocal structural abnormalities. By signing this report, the attending Electroencephalographer certifies that he/she personally reviewed the electrodiagnostics study and has edited this report to fully conform with his/her intent. Signing Attending: Eitan Mendoza MD PhD Digna Carter NP NEUROLOGY ORDERABLES Final Resul t * (ABNORMAL) Blood gas, arterial (06/15/2021 4:22 AM GREEN MARKETING ANALYST) pH, Art 7.45 7.35 - 7.45 [facility] PCO2, Arterial 37 35 - 45 mmHg [facility] PO2, Arterial 140(H) 83 - 108 mmHg [facility] HCO3 Art (Calculated) 26 20 - 30 mmol/L [facility] BE, art 2 mmol/L [facility] Comment: Interpretive Data No Reference Range Established Current Interpretive Data was last revised on 2017 O2 Sat Art (Measured) 100(H) 90 - 95 % [facility] Blood 06/15/2021 4:22 AM GREEN MARKETING ANALYST 06/15/2021 4:29 AM GREEN MARKETING ANALYST Digna Carter NP LAB BLOOD ORDERABLES Final Resul t [facility] [address] [facility] [address] Department [place] [address] * INTUBATION (06/15/2021 3:57 AM GREEN MARKETING ANALYST) Narrative Elver Rodriguez MD PhD - 06/15/2021 3:57 AM GREEN MARKETING ANALYST Shelia Posadas MD ? 06/15/2021 ??4:02 AM Intubation Date/Time: 06/15/2021 3:57 AM Performed by: Shelia Posadas MD Authorized by: Shelia Posadas MD [place] Protocol: RN Notified of Procedure: yes ?? Informed consent: ??Risks, benefits, alternatives discussed and patient/parts sales representative/guardian agrees and accepts Patient's stated name/ matches armband: ??Yes Allergies confirmed: yes ?? Consent form signed, dated, timed; matches correct patient, intended procedure and site: ??No consent form due to emergent status Imaging: ??Pertinent imaging reviewed, correctly oriented and match to patient identifiers Lab/Diag test results: ??Pertinent lab/diag tests reviewed and match to patient identifiers Supplies, devices and special equipment are available: yes ?? Immediately prior to the procedure a time out was called: a verbal verification by the procedure participants confirmed correct patient identity, correct site/side marked and visible (if applicable); agreement on procedure to be done; and correct patient positioning ?? Indications: ??Respiratory distress and airway protection Intubation method: ??Video-assisted Patient status: ??Sedated Patient position: ??Flat Preoxygenation: ??Nonrebreather mask Mask Ease: not attempted ?? Pretreatment meds: ??Fentanyl Sedation: ??Etomidate Paralytic: ??None Visualization used: ??Direct Laryngoscope size: ??Mac 4 (D-Blade) Tube size (mm): ??8.0 Tube type: ??Cuffed Number of attempts: ??1 Was this a difficult intubation?: No ?? Cricoid pressure: No ?? Cords visualized: Yes ?? Post-procedure assessment: ??Chest rise and ETCO2 monitor Breath sounds: ??Equal Cuff inflated: Yes ?? ETT to lip (cm): ??26 ETT to teeth (cm): ??25 Tube secured with: ??ETT broderick Chest x-ray interpreted by: ??Me Chest x-ray findings: ??Endotracheal tube too high Tube repositioned: Tube repositioned successfully ?? Complications: ??Hypotension The patient required several suctioning attempts yielding a significant amount of endotracheal secretions, and leading to improvement in bilateral breath sounds (previously quite coarse) us Shelia Posadas MD IN CLINIC/BEDSIDE ORDERABLE S Final Result * CT Head WO Contrast (06/15/2021 3:17 AM GREEN MARKETING ANALYST) Anatomical Region Laterality Modality Head and Neck N/A Computed Tomogra phy 06/15/2021 3:36 AM GREEN MARKETING ANALYST Impressions 06/15/2021 7:23 AM GREEN MARKETING ANALYST No significant interval change. Evolving small volume intraventricular hemorrhage. The known subarachnoid hemorrhage is not well appreciated, and may be due to portable technique Dictated by: Ian Cohen M.D. The radiology attending physician has personally reviewed this study, and had reviewed and/or edited this written report and agrees with it. Electronically signed by: Kerwin Doss M.D. Narrative 06/15/2021 7:23 AM GREEN MARKETING ANALYST EXAMINATION: PORTABLE CT head without contrast HISTORY: IVH. TECHNIQUE: Noncontrast CT of the brain was performed with images acquired from skull base to vertex. COMPARISON: Portable head CT 06/12/2021 FINDINGS: Redemonstrated is evolving intraventricular hemorrhage layering in the occipital horns of the lateral ventricles. The ventricles are dilated but unchanged in size and morphology. There is diffuse cerebral volume loss. The previously seen subarachnoid hemorrhage is not well depicted on the portable CT. No mass effect or midline shift is present. ??The visualized portions of the orbits are normal. The visualized portions of the mastoids are normal. The visualized portions of the paranasal sinuses are normal. No fractures are identified. There is left parietal scalp hematoma. Procedure Note Kerwin Doss MD - 06/15/2021 EXAMINATION: PORTABLE CT head without contrast HISTORY: IVH. TECHNIQUE: Noncontrast CT of the brain was performed with images acquired from skull base to vertex. COMPARISON: Portable head CT 06/12/2021 FINDINGS: Redemonstrated is evolving intraventricular hemorrhage layering in the occipital horns of the lateral ventricles. The ventricles are dilated but unchanged in size and morphology. There is diffuse cerebral volume loss. The previously seen subarachnoid hemorrhage is not well depicted on the portable CT. No mass effect or midline shift is present. The visualized portions of the orbits are normal. The visualized portions of the mastoids are normal. The visualized portions of the paranasal sinuses are normal. No fractures are identified. There is left parietal scalp hematoma. IMPRESSION: No significant interval change. Evolving small volume intraventricular hemorrhage. The known subarachnoid hemorrhage is not well appreciated, and may be due to portable technique Dictated by: Ian Cohen M.D. The radiology attending physician has personally reviewed this study, and had reviewed and/or edited this written report and agrees with it. Electronically signed by: Kerwin Doss M.D. Seth Kiser MD IMG CT PROCEDURES Final Res ult * XR Chest 1 View (06/15/2021 3:08 AM GREEN MARKETING ANALYST) Anatomical Region Laterality Modality Body, Chest N/A Computed Radiogr aphy 06/15/2021 8:41 AM GREEN MARKETING ANALYST Impressions 06/15/2021 10:17 AM GREEN MARKETING ANALYST First exam 06/15/2021 1:31 AM: 06/13/2021 comparison. Gastric tube courses below the diaphragm. Small lung volumes with mild right basilar atelectasis. No pleural effusion, or pneumothorax. Cardiac mediastinal silhouette unchanged. Second exam ??06/15/2021 2:54 AM: Endotracheal tube terminates approximately 4 cm above the jhonny. Otherwise, no significant change. Dictated by: Saqib Campa M.D. The radiology attending physician has personally reviewed this study, and had reviewed and/or edited this written report and agrees with it. Electronically signed by: Tommy Bearden M.D. Narrative 06/15/2021 10:17 AM GREEN MARKETING ANALYST Examination: 2 portable chests Chest one view portable Chest one view portable Procedure Note Tommy Bearden MD - 06/15/2021 Examination: 2 portable chests Chest one view portable Chest one view portable IMPRESSION: First exam 06/15/2021 1:31 AM: 06/13/2021 comparison. Gastric tube courses below the diaphragm. Small lung volumes with mild right basilar atelectasis. No pleural effusion, or pneumothorax. Cardiac mediastinal silhouette unchanged. Second exam 06/15/2021 2:54 AM: Endotracheal tube terminates approximately 4 cm above the jhonny. Otherwise, no significant change. Dictated by: Saqib Campa M.D. The radiology attending physician has personally reviewed this study, and had reviewed and/or edited this written report and agrees with it. Electronically signed by: Tommy Bearden M.D. Seth Kiser MD IMG XR PROCEDURES Final Res ult * XR Chest 1 View (06/15/2021 1:43 AM GREEN MARKETING ANALYST) Anatomical Region Laterality Modality Body, Chest N/A Computed Radiogr aphy 06/15/2021 8:41 AM GREEN MARKETING ANALYST Impressions 06/15/2021 10:17 AM GREEN MARKETING ANALYST First exam 06/15/2021 1:31 AM: 06/13/2021 comparison. Gastric tube courses below the diaphragm. Small lung volumes with mild right basilar atelectasis. No pleural effusion, or pneumothorax. Cardiac mediastinal silhouette unchanged. Second exam ??06/15/2021 2:54 AM: Endotracheal tube terminates approximately 4 cm above the jhonny. Otherwise, no significant change. Dictated by: Saqib Campa M.D. The radiology attending physician has personally reviewed this study, and had reviewed and/or edited this written report and agrees with it. Electronically signed by: Tommy Bearden M.D. Narrative 06/15/2021 10:17 AM GREEN MARKETING ANALYST Examination: 2 portable chests Chest one view portable Chest one view portable Procedure Note Tommy Bearden MD - 06/15/2021 Examination: 2 portable chests Chest one view portable Chest one view portable IMPRESSION: First exam 06/15/2021 1:31 AM: 06/13/2021 comparison. Gastric tube courses below the diaphragm. Small lung volumes with mild right basilar atelectasis. No pleural effusion, or pneumothorax. Cardiac mediastinal silhouette unchanged. Second exam 06/15/2021 2:54 AM: Endotracheal tube terminates approximately 4 cm above the jhonny. Otherwise, no significant change. Dictated by: Saqib Campa M.D. The radiology attending physician has personally reviewed this study, and had reviewed and/or edited this written report and agrees with it. Electronically signed by: Tommy Bearden M.D. Digna Carter NP IMG XR PROCEDURES Final Result * (ABNORMAL) Blood gas, arterial (06/15/2021 1:12 AM GREEN MARKETING ANALYST) [facility] pH, Art 7.36 7.35 - 7.45 [facility] PCO2, Arterial 46(H) 35 - 45 mmHg [facility] PO2, Arterial 167(H) 83 - 108 mmHg [facility] HCO3 Art (Calculated) 27 20 - 30 mmol/L [facility] BE, art 0 mmol/L [facility] Comment: Interpretive Data No Reference Range Established Current Interpretive Data was last revised on 2017 O2 Sat Art (Measured) 99(H) 90 - 95 % [facility] Blood 06/15/2021 1:12 AM GREEN MARKETING ANALYST 06/15/2021 1:18 AM GREEN MARKETING ANALYST Digna Carter NP LAB BLOOD ORDERABLES Final Resul t [facility] [address] Department [place] [address] * eGFR (06/14/2021 9:38 PM GREEN MARKETING ANALYST) [facility] eGFR >90 90 - 130 mL/min/1. 73 m2 [facility] Comment: Interpretive Data Reference Interval [...] interpretive data was last reviewed 2021. Blood 06/14/2021 9:38 PM GREEN MARKETING ANALYST 06/14/2021 10:05 PM GREEN MARKETING ANALYST Cassie Trent TEXTILE MACHINE MAINTENANCE MECHANIC LAB BLOOD ORDERABLES Fin al Result [facility] [address] Department [place] [address] * (ABNORMAL) CBC without differential (06/14/2021 9:38 PM GREEN MARKETING ANALYST) WBC 7.9 3.8 - 9.9 K/cumm [facility] Hgb 12.6(L) 13.0 - 17.5 g/dL [facility] Hct 36.0(L) 38.9 - 50.3 % [facility] Plt 133(L) 150 - 400 K/cumm [facility] MPV 11.3 9.1 - 12.3 fL [facility] RBC 3.60(L) 4.30 - 5.80 M/cumm [facility] MCV 100.0(H) 81.3 - 96.4 fL [facility] MCH 35.0(H) 27.1 - 33.3 pg [facility] MCHC 35.0 32.3 - 35.7 g/dL [facility] RDW CV 12.6 11.1 - 14.9 % [facility] RDW SD 46.3 35.7 - 48.1 fL [facility] NRBC abs 0.00 0.00 - 0.01 K/cumm [facility] Blood 06/14/2021 9:38 PM GREEN MARKETING ANALYST 06/14/2021 10:05 PM GREEN MARKETING ANALYST us Cassie Rika Trent TEXTILE MACHINE MAINTENANCE MECHANIC LAB BLOOD ORDERABLES Fin al Result [facility] Department [place] [address] * (ABNORMAL) Basic metabolic panel (06/14/2021 9:38 PM GREEN MARKETING ANALYST) Sodium 145 135 - 145 mmol/L [facility] Potassium, pl 4.0 3.3 - 4.9 mmol/L [facility] Chloride 111(H) 97 - 110 mmol/L [facility] CO2 28 22 - 32 mmol/L [facility] Anion gap 6 2 - 15 mmol/L [facility] BUN 10 8 - 25 mg/dL [facility] Creatinine 0.79(L) 0.80 - 1.30 mg/dL [facility] Glucose 192 70 - 199 mg/dL [facility] Comment: Interpretive Data Fasting glucose [...] 2017. Calcium 8.6 8.5 - 10.3 mg/dL [facility] Blood 06/14/2021 9:38 PM GREEN MARKETING ANALYST 06/14/2021 10:05 PM GREEN MARKETING ANALYST Cassie Murraymario Trent TEXTILE MACHINE MAINTENANCE MECHANIC LAB BLOOD ORDERABLES Fin al Result [facility] Department [place] [address] * Magnesium (06/14/2021 9:38 PM GREEN MARKETING ANALYST) Magnesium 2.0 1.4 - 2.5 mg/dL [facility] Blood 06/14/2021 9:38 PM GREEN MARKETING ANALYST 06/14/2021 10:05 PM GREEN MARKETING ANALYST Cassie Rika Trent TEXTILE MACHINE MAINTENANCE MECHANIC LAB BLOOD ORDERABLES Fin al Result Performing Organization Address [facility] [place] [address] * Phosphorus (06/14/2021 9:38 PM GREEN MARKETING ANALYST) [facility] Phosphorus, pl 2.4 2.3 - 4.5 mg/dL [facility] Blood 06/14/2021 9:38 PM GREEN MARKETING ANALYST 06/14/2021 10:05 PM GREEN MARKETING ANALYST [facility] TEXTILE MACHINE MAINTENANCE MECHANIC LAB BLOOD ORDERABLES Fin al Result Performing Organization Address [facility] Phone Number [place] [address] * US Vein Duplex Lower Extremity Bilateral Complete (06/14/2021 5:35 PM GREEN MARKETING ANALYST) Anatomical Region Laterality Modality Vascular Bilateral Ultrasound 06/14/2021 5:14 PM GREEN MARKETING ANALYST Narrative 06/14/2021 7:12 PM GREEN MARKETING ANALYST [facility] - Department of Vascular Surgery, Vascular Laboratory [address] [place] [id number] Lower Extremity Venous Ultrasound Report Patient Name: JANIA REDMAN : 1950 (71y ) Study Date: 06/14/2021 5:14:06 PM Gender: M Tech: Location: [id number] Ref.Provider: CASSIE TRENT Quality: Adequate Order Provider: CASSIE TRENT Procedures: Vascular Report: Venous Duplex imaging was performed bilaterally in the lower extremities. The common femoral, femoral, popliteal, posterior tibial, peroneal veins were evaluated for patency, spontaneity and phasicity with Doppler, compression and augmentation maneuvers. Great saphenous vein proximal at the junction was evaluated with compression maneuvers. Indications: Personal history of venous thrombosis. Findings: Performing Psychology Lecturer: Corine Lala RVT. Bilateral: Venous Doppler signals in the bilateral lower extremity are within normal limits for spontaneity and phasicity and respond normally to augmentation maneuvers. No evidence of deep vein thrombus by duplex, proximal to the calf. No evidence of superficial vein thrombus bilaterally. Conclusions: 1. There is no evidence of acute deep vein thrombosis in the lower extremities bilaterally. Noninvasive venous studies cannot rule out isolated calf vein obstruction. 2. There is no evidence of acute superficial vein thrombosis bilaterally in lower extremities. Previous Studies: Previous study performed on 02/20/2020 was postitive for right PFV thrombosis. Disclaimer: The signing physician has reviewed all images pertaining to this test. These images and this report will be retained in the patient chart by the Vascular Laboratory for the legally required time period. This chart constitutes the legal record of any testing performed. Electronically Signed By: Saqib Forbes MD [facility] [phone] 2021-06-14 19:11:59 GREEN MARKETING ANALYST CC: CC: Procedure Note Saqib Forbes MD - 06/14/2021 [facility] - Department of Vascular Surgery,Vascular Laboratory [address] [place] [address] Lower Extremity Venous Ultrasound Report Patient Name: JANIA REDMANPatient ID: [id number] : 1950 (71y )Study Date: 06/14/2021 5:14:06 PM Gender: MAccession #: [id number] Tech: KCLocation: [id number] Ref.Provider: CASSIE TRENTQuality: Adequate Order Provider: Ester TRENT #: [id number] Procedures: Vascular Report: Venous Duplex imaging was performed bilaterally in the lower extremities.The common femoral, femoral, popliteal, posterior tibial, peroneal veins wereevaluated for patency, spontaneity and phasicity with Doppler, compression and augmentationmaneuvers. Great saphenous vein proximal at the junction was evaluated with compressionmaneuvers. Indications: Personal history of venous thrombosis. Findings: Performing Psychology Lecturer: Corine Lala RVT. Bilateral: Venous Doppler signals in the bilateral lower extremity are within normallimits for spontaneity and phasicity and respond normally to augmentation maneuvers.No evidence of deep vein thrombus by duplex, proximal to the calf. No evidence ofsuperficial vein thrombus bilaterally. Conclusions: 1. There is no evidence of acute deep vein thrombosis in the lowerextremities bilaterally. Noninvasive venous studies cannot rule out isolated calf veinobstruction. 2. There is no evidence of acute superficial vein thrombosis bilaterallyin lower extremities. Previous Studies: Previous study performed on 02/20/2020 was postitive for right PFVthrombosis. Disclaimer: The signing physician has reviewed all images pertaining to this test.These images and this report will be retained in the patient chart by the VascularLaboratory for the legally required time period. This chart constitutes the legal record ofany testing performed. Electronically Signed By: Saqib Forbes MD [facility] [phone] 2021-06-14 19:11:59 GREEN MARKETING ANALYST CC: CC: Cassie Trent TEXTILE MACHINE MAINTENANCE MECHANIC IMG US PROCEDURES Final Result * eGFR (06/14/2021 8:56 AM GREEN MARKETING ANALYST) eGFR >90 90 - 130 mL/min/1. 73 m2 [facility] Comment: Interpretive Data Reference Interval Normal ?>/= [...] interpretive data was last reviewed 2021. Blood 06/14/2021 8:56 AM GREEN MARKETING ANALYST 06/14/2021 9:15 AM GREEN MARKETING ANALYST us Cassie Trent TEXTILE MACHINE MAINTENANCE MECHANIC LAB BLOOD ORDERABLES Fin al Result [facility] [address] [facility] [address] Department [place] [address] * Blood culture Blood Arm, right (06/14/2021 8:56 AM GREEN MARKETING ANALYST) Report Final Report: No growth [facility] Blood (Arm, right) 06/14/2021 8:56 AM GREEN MARKETING ANALYST 06/14/2021 9:14 AM GREEN MARKETING ANALYST Narrative [facility] - 06/18/2021 12:01 PM CDT 1. ?Blood cultures are incubated for 4 days on a continuously monitored blood culture system. The first report of a negative culture is issued within 24 hours of receipt of the specimen in the laboratory. 2. ?Positive culture results are reported as soon as they are detected. 3. ?The most important factor for detection of microbes in the setting of bloodstream infection is the volume of blood submitted for culture. Failure to collect an optimal blood volume can result in false negative blood cultures. For pediatric patients, the recommended blood volume to collect is 1 mL of blood per year of patient age (up to 20 mL) per blood culture set. For adult patients, 20 mL of blood, divided equally between aerobic and anaerobic blood culture bottles, is recommended for each blood culture set. 4. ?For blood cultures with Gram-positive cocci, a rapid molecular test for organism identification may be performed using the Tidal Gram-Positive Blood Culture Assay. This assay detects microbial DNA in positive blood culture broth via hybridization of target DNA to capture oligonucleotides on a microarray. This assay has been cleared by the [place] Food and Drug Administration and its performance characteristics have been verified by the [facility] Microbiology Laboratory. 5. ?For questions about this culture, contact the Microbiology Laboratory at [phone]. Interpretive data was last revised on 2019. Cassie Trent TEXTILE MACHINE MAINTENANCE MECHANIC LAB MICROBIOLOGY - GENER AL ORDERABLES Final Result [facility] [place] [address] * Blood culture Blood Arm, left (06/14/2021 8:56 AM GREEN MARKETING ANALYST) Report Final Report: No growth [facility] Blood (Arm, left) 06/14/2021 8:56 AM GREEN MARKETING ANALYST 06/14/2021 9:14 AM GREEN MARKETING ANALYST Narrative [facility] - 06/18/2021 12:01 PM CDT 1. ?Blood cultures are incubated for 4 days on a continuously monitored blood culture system. The first report of a negative culture is issued within 24 hours of receipt of the specimen in the laboratory. 2. ?Positive culture results are reported as soon as they are detected. 3. ?The most important factor for detection of microbes in the setting of bloodstream infection is the volume of blood submitted for culture. Failure to collect an optimal blood volume can result in false negative blood cultures. For pediatric patients, the recommended blood volume to collect is 1 mL of blood per year of patient age (up to 20 mL) per blood culture set. For adult patients, 20 mL of blood, divided equally between aerobic and anaerobic blood culture bottles, is recommended for each blood culture set. 4. ?For blood cultures with Gram-positive cocci, a rapid molecular test for organism identification may be performed using the Peerbyigene Gram-Positive Blood Culture Assay. This assay detects microbial DNA in positive blood culture broth via hybridization of target DNA to capture oligonucleotides on a microarray. This assay has been cleared by the [place] Food and Drug Administration and its performance characteristics have been verified by the [facility] Microbiology Laboratory. 5. ?For questions about this culture, contact the Microbiology Laboratory at [phone]. Interpretive data was last revised on 2019. Cassie Trent LAB MICROBIOLOGY - GENER AL ORDERABLES Final Result Performing Organization Address [facility] Co de Phone Number [facility] [place] [address] * Magnesium (06/14/2021 8:56 AM GREEN MARKETING ANALYST) Pathologist [facility] Magnesium 1.8 1.4 - 2.5 mg/dL [facility] Blood 06/14/2021 8:56 AM GREEN MARKETING ANALYST 06/14/2021 9:15 AM GREEN MARKETING ANALYST Cassie Trent LAB BLOOD ORDERABLES Fin al Result Performing Organization Address [facility] de Phone Number [facility] Department [place] [address] * Phosphorus (06/14/2021 8:56 AM GREEN MARKETING ANALYST) [facility] Phosphorus, pl 3.1 2.3 - 4.5 mg/dL [facility] Blood 06/14/2021 8:56 AM GREEN MARKETING ANALYST 06/14/2021 9:15 AM GREEN MARKETING ANALYST [facility]ABLES Fin al Result Performing Organization Address [facility] de Phone Number [facility] [place] [address] * (ABNORMAL) Basic metabolic panel (06/14/2021 8:56 AM GREEN MARKETING ANALYST) Pathologist [facility] Sodium 145 135 - 145 mmol/L [facility] Potassium, pl 3.9 3.3 - 4.9 mmol/L [facility] Chloride 113(H) 97 - 110 mmol/L [facility] CO2 29 22 - 32 mmol/L [facility] Anion gap 3 2 - 15 mmol/L [facility] BUN 9 8 - 25 mg/dL [facility] Creatinine 0.72(L) 0.80 - 1.30 mg/dL [facility] Glucose 159 70 - 199 mg/dL [facility] Comment: Interpretive Data Fasting glucose [...] interpretive data was last revised 2017. Calcium 8.7 8.5 - 10.3 mg/dL [facility] Blood 06/14/2021 8:56 AM GREEN MARKETING ANALYST 06/14/2021 9:15 AM GREEN MARKETING ANALYST Cassie Trent TEXTILE MACHINE MAINTENANCE MECHANIC LAB BLOOD ORDERABLES Fin al Result [facility] Department [place] [address] * MRI Brain W WO Contrast (06/14/2021 2:42 AM GREEN MARKETING ANALYST) Anatomical Region Laterality Modality Head and Neck N/A Magnetic Resonan ce 06/14/2021 9:07 AM GREEN MARKETING ANALYST Impressions 06/14/2021 6:16 PM GREEN MARKETING ANALYST 1. Small amount of subarachnoid, intraventricular, and intraparenchymal hemorrhage as described above, grossly stable compared with prior exam. 2. No acute cerebral infarct or enhancing lesion. Dictated by: Eugene Patel M.D. The radiology attending physician has personally reviewed this study, and had reviewed and/or edited this written report and agrees with it. Electronically signed by: Alberto Cohen M.D. Narrative 06/14/2021 6:16 PM GREEN MARKETING ANALYST EXAMINATION: Magnetic resonance imaging (MRI) of the brain and brainstem without and with contrast HISTORY: 71-year-old male with recent traumatic subarachnoid hemorrhage and intraventricular hemorrhage after a fall. TECHNIQUE: Multiplanar multi-weighted MRI of the brain and brainstem was performed without and with intravenous contrast using the general brain protocol. Contrast information: 15 mL Dotarem COMPARISON: 06/11/2021 FINDINGS: Study is limited due to motion artifact. Bilateral small amount of intraventricular hemorrhage layering in the occipital horns, not significantly changed compared with prior exam. There is mild cerebral volume loss with ex vacuo dilatation of ventricles. There are scattered T2/FLAIR hyperintensities in the periventricular and subcortical white matter, likely sequela of chronic ischemic small vessel disease. There are several areas of susceptibility including the right posterior temporal lobe, the right thalamus, and the anterior right superior frontal lobe. No evidence of acute cerebral infarct. No definite areas of abnormal contrast enhancement, however examination is limited due to motion artifact. The superior sagittal sinus demonstrates normal venous flow. ??The corpus callosum is normal in shape and signal intensity. ??The posterior fossa is unremarkable. ??The pituitary and sella are normal. The brainstem and craniocervical junction are unremarkable. There are bilateral lens replacements. Paranasal sinuses are unremarkable. Normal flow voids demonstrated in the carotid arteries and basilar artery. There are small bilateral mastoid effusions. Procedure Note Alberto Cohen MD PhD - 06/14/2021 EXAMINATION: Magnetic resonance imaging (MRI) of the brain and brainstem without and with contrast HISTORY: 71-year-old male with recent traumatic subarachnoid hemorrhage and intraventricular hemorrhage after a fall. TECHNIQUE: Multiplanar multi-weighted MRI of the brain and brainstem was performed without and with intravenous contrast using the general brain protocol. Contrast information: 15 mL Dotarem COMPARISON: 06/11/2021 FINDINGS: Study is limited due to motion artifact. Bilateral small amount of intraventricular hemorrhage layering in the occipital horns, not significantly changed compared with prior exam. There is mild cerebral volume loss with ex vacuo dilatation of ventricles. There are scattered T2/FLAIR hyperintensities in the periventricular and subcortical white matter, likely sequela of chronic ischemic small vessel disease. There are several areas of susceptibility including the right posterior temporal lobe, the right thalamus, and the anterior right superior frontal lobe. No evidence of acute cerebral infarct. No definite areas of abnormal contrast enhancement, however examination is limited due to motion artifact. The superior sagittal sinus demonstrates normal venous flow. The corpus callosum is normal in shape and signal intensity. The posterior fossa is unremarkable. The pituitary and sella are normal. The brainstem and craniocervical junction are unremarkable. There are bilateral lens replacements. Paranasal sinuses are unremarkable. Normal flow voids demonstrated in the carotid arteries and basilar artery. There are small bilateral mastoid effusions. IMPRESSION: 1. Small amount of subarachnoid, intraventricular, and intraparenchymal hemorrhage as described above, grossly stable compared with prior exam. 2. No acute cerebral infarct or enhancing lesion. Dictated by: Eugene Patel M.D. The radiology attending physician has personally reviewed this study, and had reviewed and/or edited this written report and agrees with it. Electronically signed by: Alberto Cohen M.D. Cassie Trent NP IMG MRI PROCEDURES Final Result * Phosphorus (06/14/2021 12:52 AM GREEN MARKETING ANALYST) Phosphorus, pl 3.0 2.3 - 4.5 mg/dL [facility] Blood 06/14/2021 12:5 2 AM GREEN MARKETING ANALYST 06/14/2021 1:07 AM GREEN MARKETING ANALYST Result [facility] Cassie Trent NP LAB BLOOD ORDERABLES Fin al Result Performing Organization Address [facility] de Phone Number [facility] [place] [address] * Magnesium (06/14/2021 12:52 AM GREEN MARKETING ANALYST) Magnesium 2.0 1.4 - 2.5 mg/dL [facility] Blood 06/14/2021 12:5 2 AM GREEN MARKETING ANALYST 06/14/2021 1:07 AM GREEN MARKETING ANALYST Cassie Trent LAB BLOOD ORDERABLES Fin al Result Performing Organization Address [facility] Co de Phone Number [facility] Department [place] [address] * eGFR (06/14/2021 12:52 AM GREEN MARKETING ANALYST) eGFR >90 90 - 130 mL/min/1. 73 m2 [facility] Comment: Interpretive Data Reference Interval Normal ?>/= [...] interpretive data was last reviewed 2021. Blood 06/14/2021 12:5 2 AM GREEN MARKETING ANALYST 06/14/2021 1:07 AM GREEN MARKETING ANALYST us Candace Cummings TEXTILE MACHINE MAINTENANCE MECHANIC LAB BLOOD ORDERABLES Final R esult [facility] [address] [facility] [address] Department [place] [address] * (ABNORMAL) Basic metabolic panel (06/14/2021 12:52 AM GREEN MARKETING ANALYST) Pathologist [facility] Sodium 142 135 - 145 mmol/L [facility] Potassium, pl 4.3 3.3 - 4.9 mmol/L [facility] Comment:Hemolyzed; Potassium value may be falsely elevated by as much as 0.6-1.0 mmol/L. Suggest redraw and reanalysis. Chloride 113(H) 97 - 110 mmol/L [facility] CO2 24 22 - 32 mmol/L [facility] Anion gap 5 2 - 15 mmol/L [facility] BUN 9 8 - 25 mg/dL [facility] Creatinine 0.75(L) 0.80 - 1.30 mg/dL [facility] Glucose 122 70 - 199 mg/dL [facility] Comment: Interpretive Data Fasting glucose [...] 2017. Calcium 8.4(L) 8.5 - 10.3 mg/dL [facility] Comment:Reviewed Blood 06/14/2021 12:5 2 AM GREEN MARKETING ANALYST 06/14/2021 1:07 AM GREEN MARKETING ANALYST us Candace Cummings NP LAB BLOOD ORDERABLES Final R esult [facility] [address] [facility] [address] Department [place] [address] * ECG 12 lead (06/13/2021 11:38 PM GREEN MARKETING ANALYST) Pathologist [facility] Ventricular Rate EKG/Min 78 BPM [facility] Atrial Rate 110 BPM [facility] QRS-Interval (MSEC) 76 ms [facility] QT-Interval (MSEC) 424 ms [facility] QTc 483 ms [facility] R [place] 14 degrees [facility] T [place] -38 degrees [facility] Diagnosis Atrial fibrillation Nonspecific ST and T wave abnormality Prolonged QT Abnormal ECG When compared with ECG of 12-JUN-2021 12:13, Vent. rate has decreased BY ??70 BPM Nonspecific T wave abnormality, worse in Anterolateral leads Confirmed by VENKAT KANG M.D ([id number]) on 06/14/2021 2:54:24 PM [facility] 06/13/2021 11:3 8 PM GREEN MARKETING ANALYST 06/14/2021 2:54 PM GREEN MARKETING ANALYST Cassie Trent TEXTILE MACHINE MAINTENANCE MECHANIC ECG ORDERABLES Final Re sult [facility] * eGFR (06/13/2021 10:52 PM GREEN MARKETING ANALYST) eGFR >90 90 - 130 mL/min/1. 73 m2 [facility] Comment: Interpretive Data Reference Interval Normal ?>/= [...] interpretive data was last reviewed 2021. Blood 06/13/2021 10:5 2 PM GREEN MARKETING ANALYST 06/13/2021 11:07 PM GREEN MARKETING ANALYST us Candace Cummings TEXTILE MACHINE MAINTENANCE MECHANIC LAB BLOOD ORDERABLES Final R esult Performing Organization Address City/[facility]/ZIP Co de Phone Number DAK[facility] FALCON [facility] [place] [address] * Critical Result Callback Chemistry (06/13/2021 10:52 PM GREEN MARKETING ANALYST) Date Notified [id number] [facility] Time Notified 43 D[facility] FALCON TestName Potassium, Calcium [facility] REEVES Called/Read Back Melani FALCON Credentials RN [facility] Called By MAXINE REEVES Blood 06/13/2021 10:5 2 PM GREEN MARKETING ANALYST 06/13/2021 11:07 PM GREEN MARKETING ANALYST us Candace Cummings NP LAB BLOOD ORDERABLES Final R esult Performing Organization Address [facility] Co de Phone Number [facility] [place] [address] * Basic metabolic panel (06/13/2021 10:52 PM GREEN MARKETING ANALYST) Sodium See Comment 135 - 145 mmol/L [facility] Comment:Credited: Sample inv estigated and found to be an improper collection (e.g., IV fluid contamination, improper tube type). Deleted at the Request of Melani Toney RN on 06/14/2021 00:44:19 GREEN MARKETING ANALYST by MAXINE . Potassium, pl See Comment 3.3 - 4.9 mmol/L [facility] Comment: Hemolyzed; Potassium value may be falsely elevated by as much as 0.3-0.5 mmol/L. ??Suggest redraw and reanalysis. Repeated and Verified Credited: Sample investigated and found to be an improper collection (e.g., IV fluid contamination, improper tube type). Deleted at the Request of Melani Toney RN on 06/14/2021 00:44:19 GREEN MARKETING ANALYST by MAXINE . Chloride See Comment 97 - 110 mmol/L [facility] Comment:Credited: Sample inv estigated and found to be an improper collection (e.g., IV fluid contamination, improper tube type). Deleted at the Request of Melani Toney RN on 06/14/2021 00:44:19 GREEN MARKETING ANALYST by MAXINE . CO2 See Comment 22 - 32 mmol/L [facility] Comment:Credited: Sample inv estigated and found to be an improper collection (e.g., IV fluid contamination, improper tube type). Deleted at the Request of Melani Toney RN on 06/14/2021 00:44:19 GREEN MARKETING ANALYST by MAXINE . Anion gap See Comment 2 - 15 mmol/L [facility] Comment:Credited: Sample inv estigated and found to be an improper collection (e.g., IV fluid contamination, improper tube type). Deleted at the Request of Melani Toney RN on 06/14/2021 00:44:19 GREEN MARKETING ANALYST by MAXINE . BUN See Comment 8 - 25 mg/dL [facility] Comment:Credited: Sample inv estigated and found to be an improper collection (e.g., IV fluid contamination, improper tube type). Deleted at the Request of Melani Toney RN on 06/14/2021 00:44:19 GREEN MARKETING ANALYST by MAXINE . Creatinine See Comment 0.80 - 1.30 mg/dL [facility] Comment:Credited: Sample inv estigated and found to be an improper collection (e.g., IV fluid contamination, improper tube type). Deleted at the Request of Melani Toney RN on 06/14/2021 00:44:19 GREEN MARKETING ANALYST by MAXINE . Glucose See Comment 70 - 199 mg/dL [facility] Comment: Credited: Sample investigated and found to be an improper collection (e.g., IV fluid contamination, improper tube type). Deleted at the Request of Melani Toney RN on 06/14/2021 00:44:19 GREEN MARKETING ANALYST by MAXINE . Interpretive Data Fasting glucose >/= 126 mg/dl [...] interpretive data was last revised 2017. Calcium See Comment 8.5 - 10.3 mg/dL [facility] Comment: Repeated and Verified Credited: Sample investigated and found to be an improper collection (e.g., IV fluid contamination, improper tube type). Deleted at the Request of Melani Toney RN on 06/14/2021 00:44:19 GREEN MARKETING ANALYST by MAXINE . Blood 06/13/2021 10:5 2 PM GREEN MARKETING ANALYST 06/13/2021 11:07 PM GREEN MARKETING ANALYST us Candace Cummings NP LAB BLOOD ORDERABLES Edited Result - Final [facility] [address] [facility] [address] [place] [address] * (ABNORMAL) CBC without differential (06/13/2021 8:48 PM GREEN MARKETING ANALYST) WBC 6.4 3.8 - 9.9 K/cumm [facility] Hgb 12.2(L) 13.0 - 17.5 g/dL [facility] Hct 34.9(L) 38.9 - 50.3 % [facility] Plt 120(L) 150 - 400 K/cumm [facility] MPV 10.7 9.1 - 12.3 fL [facility] RBC 3.47(L) 4.30 - 5.80 M/cumm [facility] MCV 100.6(H) 81.3 - 96.4 fL [facility] MCH 35.2(H) 27.1 - 33.3 pg [facility] MCHC 35.0 32.3 - 35.7 g/dL [facility] RDW CV 12.8 11.1 - 14.9 % [facility] RDW SD 47.4 35.7 - 48.1 fL [facility] NRBC abs 0.00 0.00 - 0.01 K/cumm [facility] Blood 06/13/2021 8:48 PM GREEN MARKETING ANALYST 06/13/2021 9:11 PM GREEN MARKETING ANALYST us Cassie Posthamidajuliana TEXTILE MACHINE MAINTENANCE MECHANIC LAB BLOOD ORDERABLES Fin al Result [facility] Department [place] [address] * TRANSTHORACIC ECHO (TTE) COMPLETE W DOPPLER/CF W CONTRAST W BUBBLE (06/13/2021 4:49 PM GREEN MARKETING ANALYST) Anatomical Region Laterality Modality Ultrasound 06/13/2021 7:00 AM GREEN MARKETING ANALYST Narrative 06/13/2021 5:03 PM GREEN MARKETING ANALYST Patient name: Jania Redman Date of test: 06/13/2021 Type of test: TTE w/Doppler [facility] #: [id number] Date of : 1950 (M) Psychology Lecturer: Sandie Howard RDCS Referring Physician: MARK EARLY MD Contrast Agent: 2.3 ml. Optison Admin., (0.7 ml Wasted) and NS Bubble Study Contrast Administered by: Supervised/Interpreted by: Bryson De La Rosa MD Diagnosis: Location: [facility] Reason for test: syncope/cardiac w/up MV Structure: mildly thickened, ?MV Motion: Normal, ?? Mitral Annulus: mildly calcified AV Structure: tricuspid and is mildly thickened, ?? AV Motion: Normal Aotic root: dilated, ?TM: Normal, ?? PV: Normal Valvular Vegetations: none seen, ?Mass/Thrombi: none seen RA: Normal Measurements: ?M-Mode ?Normal ? Aotic Root: ? <3.8 ? LA: ? <4.0 ? RV: ? <2.8 ? LV(ED): ? <5.7 ? LV(ES): ? Variable ?2D Linear Normal ? Aotic Root: 4.7 cm ?<4.0 ? Ao Indexed: 2.3 cm/M2 <2.0 ? LA: ? <4.0 ? RV: ? <4.2 ? LV(ED): ? <5.9 ? LV(ES): ? <4.0 ?2D Vol. ?? Normal ?Indexed ?? Indexed Normal RA: ? 11-39 ? LA: ? 16-34 ? RV: ? <12.7 ? LV(ED): ? 62-150 ?<75 ? LV(ES): ? 21-61 ? <32 ?3D Vol. ? Indexed Normal LV(ED): ?<75 ? LV(ES): ?<32 ? LV EF: 70-75 % ?? (Normal: >=52%) ?? LV Mass Index (Area-Length): ??g/m2 ?(Normal: 50-102 g/m2) Wall Motion Scoring (1=Normal 2=Hypo 3=Akinetic 4=Dyskin./Aneurysm 0=Not visualized) Parasternal Long [place]:MAS=1 BAS=1 MIL=1 LACY=1 Parasternal Short [place]:MAS=1 MIS=1 ND=1 MIL=1 MAL=1 MA=1 Apical 4 Chambers:=1 MIS=1 BIS=1 BAL=1 MAL=1 AL=1 AC=1 Apical 2 Chambers:AI=1 ND=1 BI=1 BA=1 MA=1 AA=1 AC=1 LV Global Longitudinal Strain: RV Global Longitudinal Strain: LV Function: Normal LV Ejection Fraction, (EF=52-72%) RV Function: Normal Septal Motion: Normal Pericardial Effusion: none seen Atrial Septum: Normal DOPPLER/COLOR FLOW DOPPLER RESULTS: Diastolic Function: Normal Tricuspid Valve: normal TV Pulmonic Valve: normal PV AV Regurgitation: No AR seen AV Stenosis: no AV Area: ??cm2 AV Pressure Gradient (mmHg): Mean: 0, Peak:0 MV Regurgitation: Mild MR MV Stenosis: no MS MV Area: ??cm2 MV Pressure Gradient (mmHg): Mean: 0 MV ERO: ??cm Regurg. Vol.: ??ml/beat Regurg. Frac.: ??% PA Pressure: ??mmHg DOPPLER/COLOR FOLOW DOPPLER COMMENTS: No AR seen, Mild MR, no , no MS, normal TV, normal PV. Diastolic function: Normal CONTRAST: 2.3 ml. Optison Admin., (0.7 ml Wasted) and NS Bubble Study SUMMARY: LA is mildly dilated. Normal RV cavity size and function. LV cavity size is normal. Concentric LV remodeling with normal EF=70-75%. Normal Inferior vena cava. Dilated JOSE RAFAEL=4.7 cm and ascending aorta=3.9 cm. No previous study. Confirmed on ??06/13/2021 - 17:03:37 by Bryson De La Rosa MD By signing this report, the attending pharmacovigilance specialist certifies that he or she has personally supervised and interpreted the echocardiogram and has reviewed and or edited and agrees with the written comments contained within the report. Procedure Note Bryson De La Rosa MD - 06/13/2021 Patient name: Jania Redman Date of test: 06/13/2021 Type of test: E w/[facility] #: [id number] Date of : 1950 (M) Psychology Lecturer: Sandie Howard MANUEL Referring Physician: MARK EARLY MD Contrast Agent: 2.3 ml. Optison Admin., (0.7 ml Wasted) and NS Bubble Study Contrast Administered by: Supervised/Interpreted by: Bryson De La Rosa MD Diagnosis: Location: [facility] Reason for test: syncope/cardiac w/up MV Structure: mildly thickened, MV Motion: Normal, Mitral Annulus: mildly calcified AV Structure: tricuspid and is mildly thickened, AV Motion: Normal Aotic root: dilated, TM: Normal, PV: Normal Valvular Vegetations: none seen, Mass/Thrombi: none seen RA: Normal Measurements: M-Mode Normal Aotic Root: <3.8 LA: <4.0 RV: <2.8 LV(ED): <5.7 LV(ES): Variable 2D Linear Normal Aotic Root: 4.7 cm <4.0 Ao Indexed: 2.3 cm/M2 <2.0 LA: <4.0 RV: <4.2 LV(ED): <5.9 LV(ES): <4.0 2D Vol. Normal Indexed Indexed Normal RA: 11-39 LA: 16-34 RV: <12.7 LV(ED): 62-150 <75 LV(ES): 21-61 <32 3D Vol. Indexed Normal LV(ED): <75 LV(ES): <32 LV EF: 70-75 % (Normal: >=52%) LV Mass Index (Area-Length): g/m2 (Normal: 50-102 g/m2) Wall Motion Scoring (1=Normal 2=Hypo 3=Akinetic 4=Dyskin./Aneurysm 0=Not visualized) Parasternal Long [place]:MAS=1 BAS=1 MIL=1 LACY=1 Parasternal Short [place]:MAS=1 MIS=1 ND=1 MIL=1 MAL=1 MA=1 Apical 4 Chambers:=1 MIS=1 BIS=1 BAL=1 MAL=1 AL=1 AC=1 Apical 2 Chambers:AI=1 ND=1 BI=1 BA=1 MA=1 AA=1 AC=1 LV Global Longitudinal Strain: RV Global Longitudinal Strain: LV Function: Normal LV Ejection Fraction, (EF=52-72%) RV Function: Normal Septal Motion: Normal Pericardial Effusion: none seen Atrial Septum: Normal DOPPLER/COLOR FLOW DOPPLER RESULTS: Diastolic Function: Normal Tricuspid Valve: normal TV Pulmonic Valve: normal PV AV Regurgitation: No AR seen AV Stenosis: no AV Area: cm2 AV Pressure Gradient (mmHg): Mean: 0, Peak:0 MV Regurgitation: Mild MR MV Stenosis: no MS MV Area: cm2 MV Pressure Gradient (mmHg): Mean: 0 MV ERO: cm Regurg. Vol.: ml/beat Regurg. Frac.: % PA Pressure: mmHg DOPPLER/COLOR FOLOW DOPPLER COMMENTS: No AR seen, Mild MR, no , no MS, normal TV, normal PV. Diastolic function: Normal CONTRAST: 2.3 ml. Optison Admin., (0.7 ml Wasted) and NS Bubble Study SUMMARY: LA is mildly dilated. Normal RV cavity size and function. LV cavity size is normal. Concentric LV remodeling with normal EF=70-75%. Normal Inferior vena cava. Dilated JOSE RAFAEL=4.7 cm and ascending aorta=3.9 cm. No previous study. Confirmed on 06/13/2021 - 17:03:37 by Bryson De La Rosa MD By signing this report, the attending pharmacovigilance specialist certifies that he or she has personally supervised and interpreted the echocardiogram and has reviewed and or edited and agrees with the written comments contained within the report. Mark Early NP CV ECHO PROCEDURES Final Result * Potassium, whole blood (06/13/2021 2:26 PM GREEN MARKETING ANALYST) Potassium, bld 4.2 3.3 - 4.9 mmol/L [facility] FALCON Blood 06/13/2021 2:26 PM GREEN MARKETING ANALYST 06/13/2021 2:36 PM GREEN MARKETING ANALYST Cassie Trent NP LAB BLOOD ORDERABLES Fin al Result [facility] Department [place] [address] * Continuous Video EEG (06/13/2021 1:58 PM GREEN MARKETING ANALYST) Anatomical Region Laterality Modality EEG Narrative 06/13/2021 5:50 PM GREEN MARKETING ANALYST Video-EEG Report Patient Name: Jania Redman [facility] Medical Record Number (MRN): [id number] [facility] Ed Record: [id number] Date of (): 1950 EEG Date: 06/12/2021 Ordering Provider: Katia Champion NP CC: Jean-Claude Salazar Start Time: 06/12/2021 6:52:33 PM ? End Time: 06/13/2021 1:13:15 PM ?? Introduction: Mr. Redman is a 71 y.o. male with a history of afib on AC (99% burden on Holter 08/2020), HTN, HLD, HFpEF, COPD, alcohol use disorder, presenting with altered mental status after a fall concerning for seizures. ??EEG was performed to evaluate for seizures. This is a report of continuous video-EEG monitoring. High definition digital video and digital EEG were recorded continuously with a [employer] EEG acquisition system. This was a 32 channel EEG with additional anterior temporal electrodes. Electrodes were placed with collodion following the 10/20 International System. The patient was monitored and observed continuously by technical personnel. Digital seizure and spike detection were utilized during the recording. EEG Description: There was no well-developed posterior rhythm. The background consisted of bilateral, diffuse, asynchronous admixed theta and delta range activity with shifting predominance. The record showed variability. Hyperventilation and photic strobe stimulation were not performed. ??There were no focal, lateralized or epileptiform abnormalities. The EKG showed a normal rate and rhythm. Daily Video-EEG Description: Epoch 1: 06/12/2021 6:52:33 PM - 06/13/2021 1:13:15 PM The interictal EEG was as described above. There was a intermittent poorly formed about 7.5-8 Hz posterior rhythm as the recording progressed from this morning. ??There were no clinical or electrographic events. Interpretation: No seizures were captured in the recoding. The interictal EEG was abnormal due to moderate improved to mild to moderate generalized slowing. Generalized slowing indicates diffuse cerebral dysfunction as seen in metabolic, toxic, or diffuse or multifocal structural abnormalities. These findings were discussed with treating physicians on an at least daily basis. By signing this report, the attending Electroencephalographer certifies that he/she personally reviewed the electrodiagnostics study and has edited this report to fully conform with his/her intent. Signing Attending: Stevie Kevin MD PhD us Katia Champion TEXTILE MACHINE MAINTENANCE MECHANIC NEUROLOGY ORDERABLES Fi nal Result * eGFR (06/13/2021 12:57 PM GREEN MARKETING ANALYST) eGFR >90 90 - 130 mL/min/1. 73 m2 [facility] Comment: Interpretive Data Reference Interval Normal ?>/= [...] interpretive data was last reviewed 2021. Blood 06/13/2021 12:5 7 PM GREEN MARKETING ANALYST 06/13/2021 1:13 PM GREEN MARKETING ANALYST us Cassie Trent NP LAB BLOOD ORDERABLES Fin al Result [facility] [address] [place] [address] * Differential, auto (06/13/2021 12:57 PM GREEN MARKETING ANALYST) Neutrophil abs 3.6 1.7 - 6.5 K/cumm [facility] Imm gran abs 0.0 0.0 - 0.1 K/cumm [facility] Lymphocyte abs 1.1 0.8 - 3.3 K/cumm [facility] Monocyte abs 0.4 0.2 - 0.8 K/cumm [facility] Eosinophil abs 0.1 0.0 - 0.5 K/cumm [facility] Basophil abs 0.0 0.0 - 0.1 K/cumm [facility] Neutrophil pct 67.9 % [facility] Comment: Interpretive Data Percent cell count reference ranges are not reported, since discordance with absolute values may lead to misinterpretation of CBC data. Current Interpretive Data was last revised on 2017. Imm gran pct 0.4 % [facility] Comment: Interpretive Data Percent cell count reference ranges are not reported, since discordance with absolute values may lead to misinterpretation of CBC data. Current Interpretive Data was last revised on 2017. Lymphocyte pct 20.8 % [facility] Comment: Interpretive Data Percent cell count reference ranges are not reported, since discordance with absolute values may lead to misinterpretation of CBC data. Current Interpretive Data was last revised on 2017. Monocyte pct 8.1 % [facility] Comment: Interpretive Data Percent cell count reference ranges are not reported, since discordance with absolute values may lead to misinterpretation of CBC data. Current Interpretive Data was last revised on 2017. Eosinophil pct 2.4 % [facility] Comment: Interpretive Data Percent cell count reference ranges are not reported, since discordance with absolute values may lead to misinterpretation of CBC data. Current Interpretive Data was last revised on 2017. Basophil pct 0.4 % [facility] Comment: Interpretive Data Percent cell count reference ranges are not reported, since discordance with absolute values may lead to misinterpretation of CBC data. Current Interpretive Data was last revised on 2017. Blood 06/13/2021 12:5 7 PM GREEN MARKETING ANALYST 06/13/2021 1:13 PM GREEN MARKETING ANALYST Cassie Trent TEXTILE MACHINE MAINTENANCE MECHANIC LAB BLOOD ORDERABLES Fin al Result Performing Organization Address [facility] Co de Phone Number [facility] [address] Department [place] [address] * (ABNORMAL) CBC with auto differential (06/13/2021 12:57 PM GREEN MARKETING ANALYST) WBC 5.3 3.8 - 9.9 K/cumm [facility] Hgb 12.4(L) 13.0 - 17.5 g/dL [facility] Hct 34.8(L) 38.9 - 50.3 % [facility] Plt 100(L) 150 - 400 K/cumm [facility] MPV 11.3 9.1 - 12.3 fL [facility] RBC 3.44(L) 4.30 - 5.80 M/cumm [facility] MCV 101.2(H) 81.3 - 96.4 fL [facility] MCH 36.0(H) 27.1 - 33.3 pg [facility] MCHC 35.6 32.3 - 35.7 g/dL [facility] RDW CV 12.7 11.1 - 14.9 % [facility] RDW SD 47.4 35.7 - 48.1 fL [facility] NRBC abs 0.00 0.00 - 0.01 K/cumm [facility] Blood 06/13/2021 12:5 7 PM GREEN MARKETING ANALYST 06/13/2021 1:13 PM GREEN MARKETING ANALYST Cassie Trent TEXTILE MACHINE MAINTENANCE MECHANIC LAB BLOOD ORDERABLES Fin al Result Performing Organization Address [facility]/State/ZIP Co de Phone Number [facility] [address] Department [place] [address] * (ABNORMAL) Basic metabolic panel (06/13/2021 12:57 PM GREEN MARKETING ANALYST) [facility] Sodium 143 135 - 145 mmol/L [facility] Potassium, pl 4.7 3.3 - 4.9 mmol/L [facility] Comment:Hemolyzed; Potassium value may be falsely elevated by as much as 0.6-1.0 mmol/L. Suggest redraw and reanalysis. Chloride 112(H) 97 - 110 mmol/L [facility] CO2 26 22 - 32 mmol/L [facility] Anion gap 5 2 - 15 mmol/L [facility] BUN 10 8 - 25 mg/dL [facility] Creatinine 0.71(L) 0.80 - 1.30 mg/dL [facility] Glucose 125 70 - 199 mg/dL [facility] Comment: Interpretive Data Fasting glucose [...] 2017. Calcium 8.4(L) 8.5 - 10.3 mg/dL [facility] Blood 06/13/2021 12:5 7 PM GREEN MARKETING ANALYST 06/13/2021 1:13 PM GREEN MARKETING ANALYST Cassie Trent NP LAB BLOOD ORDERABLES Fin al Result [facility] [address] Department [place] [address] * Calcium, ionized (06/13/2021 12:57 PM GREEN MARKETING ANALYST) [facility] Calcium, Ionized 4.59 4.50 - 5.10 mg/dL [facility] Blood 06/13/2021 12:5 7 PM GREEN MARKETING ANALYST 06/13/2021 1:07 PM GREEN MARKETING ANALYST Cassie Trent NP LAB BLOOD ORDERABLES Fin al Result [facility] [address] Department [place] [address] * XR Chest 1 View (06/13/2021 11:26 AM GREEN MARKETING ANALYST) Anatomical Region Laterality Modality Body, Chest N/A Computed Radiogr aphy 06/13/2021 11:4 8 AM GREEN MARKETING ANALYST Impressions 06/13/2021 11:56 AM GREEN MARKETING ANALYST Comparison is made to 06/12/2021. A gastric tube extends below the hemidiaphragm.. Heart and mediastinal contours are unchanged within normal limits. There are small lung volumes. The lungs are clear without any focal consolidation, pleural effusion, or pneumothorax. Dictated by: Stepan Lau MD The radiology attending physician has personally reviewed this study, and had reviewed and/or edited this written report and agrees with it. Electronically signed by: Tommy Bearden M.D. Narrative 06/13/2021 11:56 AM GREEN MARKETING ANALYST EXAMINATION: 1 view chest radiograph Procedure Note Tommy Bearden MD - 06/13/2021 EXAMINATION: 1 view chest radiograph IMPRESSION: Comparison is made to 06/12/2021. A gastric tube extends below the hemidiaphragm.. Heart and mediastinal contours are unchanged within normal limits. There are small lung volumes. The lungs are clear without any focal consolidation, pleural effusion, or pneumothorax. Dictated by: Stepan Lau MD The radiology attending physician has personally reviewed this study, and had reviewed and/or edited this written report and agrees with it. Electronically signed by: Tommy Bearden M.D. Cassie Trent NP IMG XR PROCEDURES Final Result * eGFR (06/13/2021 11:08 AM GREEN MARKETING ANALYST) Pathologist [facility] eGFR >90 90 - 130 mL/min/1. 73 m2 [facility] Comment: Interpretive Data Reference Interval Normal ?>/= [...] interpretive data was last reviewed 2021. Blood 06/13/2021 11:0 8 AM GREEN MARKETING ANALYST 06/13/2021 11:27 AM GREEN MARKETING ANALYST Cassie Trent TEXTILE MACHINE MAINTENANCE MECHANIC LAB BLOOD ORDERABLES Fin al Result [facility] [address] Department [place] [id number] * (ABNORMAL) CBC without differential (06/13/2021 11:08 AM GREEN MARKETING ANALYST) Pathologist [facility] WBC 4.9 3.8 - 9.9 K/cumm [facility] Hgb 10.0(L) 13.0 - 17.5 g/dL [facility] Comment:No apparent cause fo r delta. Discrepancy noted. Called and confirmed per Guillermina Ibarra RN at 1150 by sv Hct 29.2(L) 38.9 - 50.3 % [facility] Plt 111(L) 150 - 400 K/cumm [facility] MPV 11.0 9.1 - 12.3 fL [facility] RBC 2.83(L) 4.30 - 5.80 M/cumm [facility] MCV 103.2(H) 81.3 - 96.4 fL [facility] MCH 35.3(H) 27.1 - 33.3 pg [facility] MCHC 34.2 32.3 - 35.7 g/dL [facility] RDW CV 12.5 11.1 - 14.9 % [facility] RDW SD 47.0 35.7 - 48.1 fL [facility] NRBC abs 0.00 0.00 - 0.01 K/cumm [facility] Blood 06/13/2021 11:0 8 AM GREEN MARKETING ANALYST 06/13/2021 11:26 AM GREEN MARKETING ANALYST us Cassie Trent TEXTILE MACHINE MAINTENANCE MECHANIC LAB BLOOD ORDERABLES Fin al Result [facility] [address] Department [place] [address] * (ABNORMAL) Basic metabolic panel (06/13/2021 11:08 AM GREEN MARKETING ANALYST) Sodium 145 135 - 145 mmol/L [facility] Potassium, pl 3.4 3.3 - 4.9 mmol/L [facility] Comment:Hemolyzed; Potassium value may be falsely elevated by as much as 0.3-0.5 mmol/L. Suggest redraw and reanalysis. Chloride 116(H) 97 - 110 mmol/L [facility] CO2 23 22 - 32 mmol/L [facility] Anion gap 6 2 - 15 mmol/L [facility] BUN 8 8 - 25 mg/dL [facility] Creatinine 0.65(L) 0.80 - 1.30 mg/dL [facility] Glucose 134 70 - 199 mg/dL [facility] Comment: Interpretive Data Fasting glucose [...] interpretive data was last revised 2017. Calcium 6.6(L) 8.5 - 10.3 mg/dL [facility] Comment:Reviewed Blood 06/13/2021 11:0 8 AM GREEN MARKETING ANALYST 06/13/2021 11:27 AM GREEN MARKETING ANALYST Cassie Trent TEXTILE MACHINE MAINTENANCE MECHANIC LAB BLOOD ORDERABLES Fin al Result Performing Organization Address [facility]/ZIP Co de Phone Number [facility] Department [place] [address] * Ammonia (06/13/2021 11:08 AM GREEN MARKETING ANALYST) Pathologist [facility] Ammonia <20 5 - 50 mcmol/L [facility] Blood 06/13/2021 11:0 8 AM GREEN MARKETING ANALYST 06/13/2021 11:52 AM GREEN MARKETING ANALYST Cassie Trent TEXTILE MACHINE MAINTENANCE MECHANIC LAB BLOOD ORDERABLES Aime renetta Result - Final Performing Organization Address [facility] Co de Phone Number [facility] Department [place] [address] * eGFR (06/12/2021 4:34 PM GREEN MARKETING ANALYST) eGFR >90 90 - 130 mL/min/1. 73 m2 [facility] Comment: Interpretive Data Reference Interval [...] interpretive data was last reviewed 2021. Blood 06/12/2021 4:34 PM GREEN MARKETING ANALYST 06/12/2021 4:49 PM GREEN MARKETING ANALYST us Cassie Trent NP LAB BLOOD ORDERABLES Fin al Result [facility] [address] Department [place] [address] * Hepatitis panel, acute (06/12/2021 4:34 PM GREEN MARKETING ANALYST) Hep A IgM Nonreactive Nonreactive [facility] Comment: Interpretive Data: If Hep A IgM Ab is reported as Equivocal, a new sample should be drawn in two weeks for testing. Current interpretive data was last revised on 19. Hep B core IgM Nonreactive Nonreactive [facility] Comment: Interpretive Data If HepB Core IgM Ab is reported as Equivocal, a new sample should be drawn in two weeks for testing. Current interpretive data was last revised on 19. Hep C Ab Nonreactive Nonreactive [facility] Comment:Antibodies to HCV no t detected. Does NOT exclude the possibility of recent exposure to HCV. HepBsAg Nonreactive Nonreactive [facility] Blood 06/12/2021 4:34 PM GREEN MARKETING ANALYST 06/12/2021 4:44 PM GREEN MARKETING ANALYST Cassie Trent NP LAB MICROBIOLOGY - GENER AL ORDERABLES Edited Result - Final Performing Organization Address [facility] Co de Phone Number [facility] [place] [address] * HIV 1/2 Antibody plus p24 Antigen Blood (06/12/2021 4:34 PM GREEN MARKETING ANALYST) Pathologist [facility] HIV 1/2 ab + p24 ag Nonreactive Nonreactive [facility] Comment: Nonreactive for HIV-1 antigen and HIV-1/HIV-2 antibodies. No laboratory evidence of HIV infection. If acute HIV infection is suspected, consider testing for HIV-1 RNA. Blood 06/12/2021 4:34 PM GREEN MARKETING ANALYST 06/12/2021 4:44 PM GREEN MARKETING ANALYST Cassie Trent NP LAB MICROBIOLOGY - GENER AL ORDERABLES Final Result Performing Organization Address [facility] [place] [address] * RPR (06/12/2021 4:34 PM GREEN MARKETING ANALYST) Pathologist [facility] RPR Nonreactive Nonreactive [facility] Blood 06/12/2021 4:34 PM GREEN MARKETING ANALYST 06/12/2021 4:44 PM GREEN MARKETING ANALYST Cassie Trent NP LAB MICROBIOLOGY - GENER AL ORDERABLES Final Result Performing Organization Address [facility] [place] [address] * (ABNORMAL) Vitamin B1 (06/12/2021 4:34 PM GREEN MARKETING ANALYST) Thiamine (Vit B1) 340(H) 70 - 180 nmol/L [facility] Comment: ADDITIONAL INFORMATION This test was developed and its performance characteristics determined by [facility] in a manner consistent with CLIA requirements. This test has not been cleared or approved by the U.S. Food and Drug Administration. Test Performed by: [facility] [address] [place] [address] Hotel Valet Attendant: Naman Moore M.D. Ph.D.; CLIA# [id number] Blood 06/12/2021 4:34 PM GREEN MARKETING ANALYST 06/12/2021 5:17 PM GREEN MARKETING ANALYST Cassie Trent LAB BLOOD ORDERABLES Fin al Result Performing Organization Address [facility]/ZIP Co de Phone Number [facility] Department [place] [address] * Vitamin B12 (06/12/2021 4:34 PM GREEN MARKETING ANALYST) Vitamin B12 742 230 - 1,250 pg/mL [facility] Blood 06/12/2021 4:34 PM GREEN MARKETING ANALYST 06/12/2021 4:44 PM GREEN MARKETING ANALYST Cassie Trent LAB BLOOD ORDERABLES Fin al Result [facility] [place] [address] * Folate (06/12/2021 4:34 PM GREEN MARKETING ANALYST) Folic acid >20.0 >=5.0 ng/mL [facility] Blood 06/12/2021 4:34 PM GREEN MARKETING ANALYST 06/12/2021 4:44 PM GREEN MARKETING ANALYST Cassie Trent TEXTILE MACHINE MAINTENANCE MECHANIC LAB BLOOD ORDERABLES Fin al Result Performing Organization Address [facility] [place] [address] * Copper, serum (06/12/2021 4:34 PM GREEN MARKETING ANALYST) Pathologist [facility] Copper 0.99 0.75 - 1.45 mcg/mL [facility] Comment: ADDITIONAL INFORMATION This test was developed and its performance characteristics determined by [facility] in a manner consistent with CLIA requirements. This test has not been cleared or approved by the U.S. Food and Drug Administration. Test Performed by: [facility] [address] [place] [address] Hotel Valet Attendant: Naman Moore M.D. Ph.D.; CLIA# [id number] Blood 06/12/2021 4:34 PM GREEN MARKETING ANALYST 06/12/2021 5:27 PM GREEN MARKETING ANALYST Cassie Trent TEXTILE MACHINE MAINTENANCE MECHANIC LAB BLOOD ORDERABLES Fin al Result Performing Organization Address [facility] [place] [address] * Magnesium (06/12/2021 4:34 PM GREEN MARKETING ANALYST) [facility] Magnesium 2.5 1.4 - 2.5 mg/dL [facility] Blood 06/12/2021 4:34 PM GREEN MARKETING ANALYST 06/12/2021 4:44 PM GREEN MARKETING ANALYST Cassie Murraymario Trent TEXTILE MACHINE MAINTENANCE MECHANIC LAB BLOOD ORDERABLES Fin al Result Performing Organization Address [facility] [place] [address] * (ABNORMAL) CBC without differential (06/12/2021 4:34 PM GREEN MARKETING ANALYST) WBC 8.3 3.8 - 9.9 K/cumm [facility] Hgb 14.2 13.0 - 17.5 g/dL [facility] Hct 41.4 38.9 - 50.3 % [facility] Plt 141(L) 150 - 400 K/cumm [facility] MPV 10.9 9.1 - 12.3 fL [facility] RBC 4.05(L) 4.30 - 5.80 M/cumm [facility] MCV 102.2(H) 81.3 - 96.4 fL [facility] MCH 35.1(H) 27.1 - 33.3 pg [facility] MCHC 34.3 32.3 - 35.7 g/dL [facility] RDW CV 12.6 11.1 - 14.9 % [facility] RDW SD 47.6 35.7 - 48.1 fL [facility] NRBC abs 0.00 0.00 - 0.01 K/cumm [facility] Blood 06/12/2021 4:34 PM GREEN MARKETING ANALYST 06/12/2021 4:44 PM GREEN MARKETING ANALYST Cassie Trent TEXTILE MACHINE MAINTENANCE MECHANIC LAB BLOOD ORDERABLES Fin al Result [facility] [address] Department [place] [address] * (ABNORMAL) Basic metabolic panel (06/12/2021 4:34 PM GREEN MARKETING ANALYST) [facility] Sodium 147(H) 135 - 145 mmol/L [facility] Potassium, pl 4.0 3.3 - 4.9 mmol/L [facility] Chloride 108 97 - 110 mmol/L [facility] CO2 27 22 - 32 mmol/L [facility] Anion gap 12 2 - 15 mmol/L [facility] BUN 10 8 - 25 mg/dL [facility] Creatinine 0.81 0.80 - 1.30 mg/dL [facility] Glucose 106 70 - 199 mg/dL [facility] Comment: Interpretive Data Fasting glucose [...] interpretive data was last revised 2017. Calcium 8.8 8.5 - 10.3 mg/dL [facility] Blood 06/12/2021 4:34 PM GREEN MARKETING ANALYST 06/12/2021 4:44 PM GREEN MARKETING ANALYST us Cassie Trent TEXTILE MACHINE MAINTENANCE MECHANIC LAB BLOOD ORDERABLES Fin al Result [facility] [address] Department [place] [address] * EEG (06/12/2021 3:25 PM GREEN MARKETING ANALYST) Anatomical Region Laterality Modality EEG Narrative 06/12/2021 5:35 PM GREEN MARKETING ANALYST Extended EEG Report Patient Name: Jania Redman [facility] Medical Record Number (MRN): [id number] [facility] Ed Record: [id number] Date of (): 1950 EEG Date: 06/12/2021 Ordering Provider: Guillermina Victor MD CC: Jean-Claude Salazar Start Time: 06/12/2021 1:59:54 PM ? End Time: 06/12/2021 3:01:40 PM Introduction: Mr. Redman is a 71 y.o. male with a history of afib on AC (99% burden on Holter 08/2020), HTN, HLD, HFpEF, COPD, alcohol use disorder, presenting with altered mental status after a fall. EEG was performed to evaluate for seizures. This is a 32 channel EEG recording acquired on a [employer] EEG-1200 acquisition system. Scalp electrodes were placed according to the international 10-20 System. The analog EEG was filtered from 1-70 Hz and digitally sampled at 200 Hz. The record was then reformatted for review in bipolar and referential montages. EEG Description: There was no well-developed posterior rhythm. The background consisted of bilateral, diffuse, asynchronous admixed theta and delta range activity with shifting predominance. The record showed variability. Hyperventilation was not performed. Photic strobe stimulation elicited no abnormalities. There were no focal, lateralized or epileptiform abnormalities. Interpretation: The extended EEG was abnormal due to moderate generalized slowing. Generalized slowing indicates diffuse cerebral dysfunction as seen in metabolic, toxic, or diffuse or multifocal structural abnormalities. By signing this report, the attending Electroencephalographer certifies that he/she personally reviewed the electrodiagnostics study and has edited this report to fully conform with his/her intent. Signing Attending: Stevie Kevin MD PhD us Seth Kiser MD NEUROLOGY ORDERABLES Final Result * (ABNORMAL) Urinalysis, microscopic only (06/12/2021 2:36 PM GREEN MARKETING ANALYST) WBC, ur 0-5 0 - 5 /HPF [facility] RBC, ur 0-2 0 - 2 /HPF [facility] Epithelial cells, squamous, ur 1-5 0 - 5 /HPF [facility] Mucous, ur Present(A) [facility] Hyaline casts, ur 21-50(A) 0 - 10 /LPF [facility] Culture Reflex Comment Reflex conditions for urine culture (WBC >10) not met. [facility] Urine 06/12/2021 2:36 PM GREEN MARKETING ANALYST 06/12/2021 2:56 PM GREEN MARKETING ANALYST us Cassie Trent TEXTILE MACHINE MAINTENANCE MECHANIC LAB URINE ORDERABLES Fin al Result [facility] [address] Department [place] [address] * (ABNORMAL) Urinalysis reflex to microscopic and culture Urine (06/12/2021 2:36 PM GREEN MARKETING ANALYST) Color, ur Yellow Yellow [facility] Clarity, ur Clear Clear [facility] Specific gravity, ur 1.029 1.003 - 1.030 [facility] pH, urine 5.5 [facility] Protein, ur ql 1+(A) Negative [facility] Glucose, ur ql Negative Negative [facility] Ketones, ur 2+(A) Negative [facility] Bilirubin, ur 1+(A) Negative [facility] Blood, ur Negative Negative [facility] Urobilinogen, ur 4.0(A) <2.0 mg/dL [facility] Nitrite, ur Negative Negative [facility] Leukocyte esterase, ur Negative Negative [facility] UA reflex comment Reflex to microscopic UA will be performed. [facility] Urine 06/12/2021 2:36 PM GREEN MARKETING ANALYST 06/12/2021 2:56 PM GREEN MARKETING ANALYST Narrative [facility] - 06/12/2021 3:17 PM GREEN MARKETING ANALYST ?? Urine pH is affected by diet, medications, systemic acid-base disturbances, and renal tubular function. ??pH may affect urinary stone formation. ??For example, urine pH below 6.0 may help reduce the tendency for calcium phosphate stones and pH greater than 6.0 may reduce the tendency for uric acid stone formation. Source: [facility] [employer]. Last revised 04-18-2017 Cassie Trent NP LAB MICROBIOLOGY - [facility] AL ORDERABLES Final Result [facility] [address] [place] [address] * Hemoglobin A1c (06/12/2021 1:31 PM GREEN MARKETING ANALYST) Hgb A1C 5.2 4.0 - 5.6 % [facility] Estimated Average Glucose 103 mg/dL [facility] Comment: The ADA recommends reporting an estimated Average Glucose (eAG) with all Hemoglobin A1c results using the equation derived from a study of 507 normal and diabetic adults. ??Minority populations were underrepresented and children were not included. ?? (Diabetes Care 2020; 43(S1): S66-S76). ??The eAG is not equivalent to a fasting glucose. Blood 06/12/2021 1:31 PM GREEN MARKETING ANALYST 06/12/2021 1:59 PM GREEN MARKETING ANALYST us Seth Kiser MD LAB BLOOD ORDERABLES Final Result [facility] [address] [facility] [address] [place] [address] * Lipid panel (06/12/2021 1:31 PM GREEN MARKETING ANALYST) Cholesterol 113 30 - 199 mg/dL [facility] Comment: Interpretive Data Ages < or = 19 years ??Acceptable: ? <170 mg/dL ??Borderline high: ??170-199 mg/dL ??High: ? >or= 200 mg/dL Ages > or = 20 years ??Desirable: ?<200 mg/dL ??Borderline high: ??200-239 mg/dL ??High: ? >or= 240 mg/dL Literature References: 1. Expert Panel on Integrated Guidelines for Cardiovascular Health and Risk Reduction in Children and Adolescents. Pediatrics 2011;128:S213 2. NCEP Expert Panel. Circulation 2004;110:227 Current Interpretive Data was last revised on 2017. Triglycerides 92 <=149 mg/dL [facility] Comment: Interpretive Data Ages < or = 9 years ??Acceptable: ? <75 mg/dL ??Borderline high: ??75-99 mg/dL ??High: ? >or= 100 mg/dL Ages 10 to 20 years ??Acceptable: ? <90 mg/dL ??Borderline high: ??90-129 mg/dL ??High: ? >or= 130 mg/dL Ages > or = 20 years ??Desirable: ?<150 mg/dL ??Borderline high: ??150-199 mg/dL ??High: ? 200-499 mg/dL ?Very high: ?? >or= 499 mg/dL Literature References: 1. Expert Panel on Integrated Guidelines for Cardiovascular Health and Risk Reduction in Children and Adolescents. Pediatrics 2011;128:S213 2. NCEP Expert Panel. Circulation 2004;110:227 Current Interpretive Data was last revised on 2017. HDL 44 >=40 mg/dL [facility] Comment: Interpretive Data Ages < or = 19 years ??Acceptable: ? >45 mg/dL ??Borderline low: ?? 40-45 mg/dL ??Low: ? <40 mg/dL Ages > or = 20 years ??Desirable: ?>or= 60 mg/dL ??Low: ? <40 mg/dL Literature References: 1. Expert Panel on Integrated Guidelines for Cardiovascular Health and Risk Reduction in Children and Adolescents. Pediatrics 2011;128:S213 2. NCEP Expert Panel. Circulation 2004;110:227 Current Interpretive Data was last revised on 2017. LDL, calculated 51 <=129 mg/dL [facility] Comment: Interpretive Data Ages < or = 19 years ??Acceptable: ? <110 mg/dL ??Borderline high: ??110-129 mg/dL ??High: ?>or= 130 mg/dL Ages > or = 20 years ??Optimal: ? <100 mg/dL ??Near optimal: ?100-129 mg/dL ??Borderline high: ?? 130-159 mg/dL ??High: ?>160 mg/dL Literature References: 1. Expert Panel on Integrated Guidelines for Cardiovascular Health and Risk Reduction in Children and Adolescents. Pediatrics 2011;128:S213 2. NCEP Expert Panel. Circulation 2004;110:227 Current Interpretive Data was last revised on 2017. Non-HDL Cholesterol 69 mg/dL [facility] Comment: Interpretive Data Ages < or = 19 years ??Acceptable: ?<120 mg/dL ??Borderline high: ??120-144 mg/dL ??High: ?>145 mg/dL Ages > or = 20 years ??When triglycerides are >200 mg/dL, Non-HDL cholesterol is a secondary target of ? therapy with treatment goals that are 30 mg/dL greater than the LDL cholesterol target. ? Literature References: 1. Expert Panel on Integrated Guidelines for Cardiovascular Health and Risk Reduction in Children and Adolescents. Pediatrics 2011;128:S213 2. NCEP Expert Panel. Circulation 2004;110:227 Current Interpretive Data was last revised on 2017. Chol/HDL ratio 3 [facility] Blood 06/12/2021 1:31 PM GREEN MARKETING ANALYST 06/12/2021 1:54 PM GREEN MARKETING ANALYST Seth Kiser MD LAB BLOOD ORDERABLES Final Result Performing Organization Address [facility] de Phone Number [facility] Department [place] [address] * TSH reflex to free T4 (06/12/2021 1:31 PM GREEN MARKETING ANALYST) TSH 0.80 0.30 - 4.20 mcIUnit/mL [facility] Blood 06/12/2021 1:31 PM GREEN MARKETING ANALYST 06/12/2021 1:54 PM GREEN MARKETING ANALYST us Seth Kiser MD LAB BLOOD ORDERABLES Final Result Performing Organization Address [facility] de Phone Number [facility] Department [place] [address] * eGFR (06/12/2021 1:31 PM GREEN MARKETING ANALYST) eGFR >90 90 - 130 mL/min/1. 73 m2 [facility] Comment: Interpretive Data Reference Interval [...] interpretive data was last reviewed 2021. Blood 06/12/2021 1:31 PM GREEN MARKETING ANALYST 06/12/2021 1:54 PM GREEN MARKETING ANALYST us Cassie Trent TEXTILE MACHINE MAINTENANCE MECHANIC LAB BLOOD ORDERABLES Fin al Result [facility] [address] Department of Laboratories [place], [place] [id number] * Differential, auto (06/12/2021 1:31 PM GREEN MARKETING ANALYST) Neutrophil abs 5.6 1.7 - 6.5 K/cumm [facility] Imm gran abs 0.0 0.0 - 0.1 K/cumm [facility] Lymphocyte abs 1.3 0.8 - 3.3 K/cumm [facility] Monocyte abs 0.5 0.2 - 0.8 K/cumm [facility] Eosinophil abs 0.1 0.0 - 0.5 K/cumm [facility] Basophil abs 0.0 0.0 - 0.1 K/cumm [facility] Neutrophil pct 74.5 % [facility] Comment: Interpretive Data Percent cell count reference ranges are not reported, since discordance with absolute values may lead to misinterpretation of CBC data. Current Interpretive Data was last revised on 2017. Imm gran pct 0.4 % [facility] Comment: Interpretive Data Percent cell count reference ranges are not reported, since discordance with absolute values may lead to misinterpretation of CBC data. Current Interpretive Data was last revised on 2017. Lymphocyte pct 16.8 % [facility] Comment: Interpretive Data Percent cell count reference ranges are not reported, since discordance with absolute values may lead to misinterpretation of CBC data. Current Interpretive Data was last revised on 2017. Monocyte pct 6.9 % [facility] Comment: Interpretive Data Percent cell count reference ranges are not reported, since discordance with absolute values may lead to misinterpretation of CBC data. Current Interpretive Data was last revised on 2017. Eosinophil pct 0.9 % [facility] Comment: Interpretive Data Percent cell count reference ranges are not reported, since discordance with absolute values may lead to misinterpretation of CBC data. Current Interpretive Data was last revised on 2017. Basophil pct 0.5 % [facility] Comment: Interpretive Data Percent cell count reference ranges are not reported, since discordance with absolute values may lead to misinterpretation of CBC data. Current Interpretive Data was last revised on 2017. Blood 06/12/2021 1:31 PM GREEN MARKETING ANALYST 06/12/2021 1:54 PM GREEN MARKETING ANALYST us Cassie Trent TEXTILE MACHINE MAINTENANCE MECHANIC LAB BLOOD ORDERABLES Fin al Result [facility] [address] Department [place] [address] * (ABNORMAL) CBC with auto differential (06/12/2021 1:31 PM GREEN MARKETING ANALYST) WBC 7.5 3.8 - 9.9 K/cumm [facility] Hgb 13.5 13.0 - 17.5 g/dL [facility] Hct 39.4 38.9 - 50.3 % [facility] Plt 126(L) 150 - 400 K/cumm [facility] MPV 10.6 9.1 - 12.3 fL [facility] RBC 3.87(L) 4.30 - 5.80 M/cumm [facility] MCV 101.8(H) 81.3 - 96.4 fL [facility] MCH 34.9(H) 27.1 - 33.3 pg [facility] MCHC 34.3 32.3 - 35.7 g/dL [facility] RDW CV 12.8 11.1 - 14.9 % [facility] RDW SD 47.8 35.7 - 48.1 fL [facility] NRBC abs 0.00 0.00 - 0.01 K/cumm [facility] Blood 06/12/2021 1:31 PM GREEN MARKETING ANALYST 06/12/2021 1:54 PM GREEN MARKETING ANALYST Cassie Howardpr TEXTILE MACHINE MAINTENANCE MECHANIC LAB BLOOD ORDERABLES Fin al Result Performing Organization Address [facility] de Phone Number [facility] Department [place] [address] * Phosphorus (06/12/2021 1:31 PM GREEN MARKETING ANALYST) Phosphorus, pl 3.7 2.3 - 4.5 mg/dL [facility] Blood 06/12/2021 1:31 PM GREEN MARKETING ANALYST 06/12/2021 1:54 PM GREEN MARKETING ANALYST Result [facility] Cassie Howardpr TEXTILE MACHINE MAINTENANCE MECHANIC LAB BLOOD ORDERABLES Fin al Result Performing Organization Address [facility] de Phone Number [facility] Department [place] [address] * (ABNORMAL) Magnesium (06/12/2021 1:31 PM GREEN MARKETING ANALYST) Magnesium 2.9(H) 1.4 - 2.5 mg/dL [facility] Blood 06/12/2021 1:31 PM GREEN MARKETING ANALYST 06/12/2021 1:54 PM GREEN MARKETING ANALYST [facility] TEXTILE MACHINE MAINTENANCE MECHANIC LAB BLOOD ORDERABLES Fin al Result [facility] [address] Department [place] [address] * (ABNORMAL) Comprehensive metabolic panel (06/12/2021 1:31 PM GREEN MARKETING ANALYST) Sodium 146(H) 135 - 145 mmol/L [facility] Comment:Repeated and Verifie d Potassium, pl 3.8 3.3 - 4.9 mmol/L [facility] Chloride 111(H) 97 - 110 mmol/L [facility] Comment:Repeated and Verifie d CO2 25 22 - 32 mmol/L [facility] Anion gap 11 2 - 15 mmol/L [facility] BUN 9 8 - 25 mg/dL [facility] Creatinine 0.74(L) 0.80 - 1.30 mg/dL [facility] Glucose 85 70 - 199 mg/dL [facility] Comment: Interpretive Data Fasting glucose [...] 2017. Calcium 8.0(L) 8.5 - 10.3 mg/dL [facility] Bilirubin, total 0.7 0.1 - 1.2 mg/dL [facility] Protein, pl 5.5(L) 6.5 - 8.5 g/dL [facility] Albumin 3.0(L) 3.5 - 5.0 g/dL [facility] Alk phos 86 40 - 130 Units/L [facility] ALT 11 7 - 55 Units/L [facility] AST 25 10 - 50 Units/L [facility] Blood 06/12/2021 1:31 PM GREEN MARKETING ANALYST 06/12/2021 1:54 PM GREEN MARKETING ANALYST Cassie Trent NP LAB BLOOD ORDERABLES Fin al Result [facility] [address] Department [place] [address] * XR Abdomen Ap 1 Vw (06/12/2021 12:41 PM GREEN MARKETING ANALYST) Anatomical Region Laterality Modality Body, Abdomen N/A Computed Radiogr aphy 06/12/2021 1:51 PM GREEN MARKETING ANALYST Impressions 06/12/2021 2:11 PM GREEN MARKETING ANALYST A single view of the abdomen is submitted for evaluation. Interval placement of a gastric tube, with side-port and tip projecting over the gastric body and gastric cardia, respectively. Visualized bowel gas pattern is normal. The inferior pelvis is collimated out of the [id number]. Dictated by: Bill Candelario MD PHD The radiology attending physician has personally reviewed this study, and had reviewed and/or edited this written report and agrees with it. Electronically signed by: Jessica Chicas M.D. Narrative 06/12/2021 2:11 PM GREEN MARKETING ANALYST EXAMINATION: Abdomen, one view. HISTORY: Check tube placement. COMPARISON: CT dated 06/13/2020. Procedure Note Jessica Chicas MD - 06/12/2021 EXAMINATION: Abdomen, one view. HISTORY: Check tube placement. COMPARISON: CT dated 06/13/2020. IMPRESSION: A single view of the abdomen is submitted for evaluation. Interval placement of a gastric tube, with side-port and tip projecting over the gastric body and gastric cardia, respectively. Visualized bowel gas pattern is normal. The inferior pelvis is collimated out of the [id number]. Dictated by: Bill Candelario MD PHD The radiology attending physician has personally reviewed this study, and had reviewed and/or edited this written report and agrees with it. Electronically signed by: Jessica Chicas M.D. Cassie Trent TEXTILE MACHINE MAINTENANCE MECHANIC IMG XR PROCEDURES Final Result * XR chest 1 view (Portable) (06/12/2021 12:18 PM GREEN MARKETING ANALYST) Anatomical Region Laterality Modality Body, Chest N/A Computed Radiogr aphy 06/12/2021 2:16 PM GREEN MARKETING ANALYST Impressions 06/12/2021 5:45 PM GREEN MARKETING ANALYST Comparison is made to 06/11/2021. A gastric tube is seen looping on itself with the side port and tip within the esophagus. Subsequent abdominal radiograph shows repositioning gastric tube with tip and sidehole below the gastroesophageal junction. Heart and mediastinal contours are unchanged. Atherosclerotic calcifications are noted in the aortic arch. The lungs are clear without any focal consolidation, pleural effusion, or pneumothorax. Dictated by: Stepan Lau MD The radiology attending physician has personally reviewed this study, and had reviewed and/or edited this written report and agrees with it. Electronically signed by: Tommy Bearden M.D. Narrative 06/12/2021 5:45 PM GREEN MARKETING ANALYST EXAMINATION: 1 view chest radiograph Procedure Note Tommy Bearden MD - 06/12/2021 EXAMINATION: 1 view chest radiograph IMPRESSION: Comparison is made to 06/11/2021. A gastric tube is seen looping on itself with the side port and tip within the esophagus. Subsequent abdominal radiograph shows repositioning gastric tube with tip and sidehole below the gastroesophageal junction. Heart and mediastinal contours are unchanged. Atherosclerotic calcifications are noted in the aortic arch. The lungs are clear without any focal consolidation, pleural effusion, or pneumothorax. Dictated by: Stepan Lau MD The radiology attending physician has personally reviewed this study, and had reviewed and/or edited this written report and agrees with it. Electronically signed by: Tommy Bearden M.D. Cassie Trent TEXTILE MACHINE MAINTENANCE MECHANIC IMG XR PROCEDURES Final Result * COVID-19 Coronavirus RNA Nasopharyngeal (06/12/2021 12:14 PM GREEN MARKETING ANALYST) COVID-19 RNA Not Detected [facility] Comment: Interpretive Data Synonyms for this test include: PCR and NAAT . ??Testing performed by the [facility] Molecular Infectious Disease [facility]. The 2019-Novel Coronavirus Assay (COVID-19) Real Time RT-PCR assay is for in vitro diagnostic use under FDA emergency use authorization only. A negative RT-PCR result does not preclude infection with COVID-19 and should not be used as the sole basis for treatment or other patient management decisions. ??Additional sample types have been validated according to CLIA regulations. ?? Current Interpretive Data was last revised on May 12, 2020. Nasopharyngeal 06/12/2021 12 :14 PM GREEN MARKETING ANALYST 06/12/2021 1:47 PM GREEN MARKETING ANALYST Narrative [facility] - 06/12/2021 8:33 PM GREEN MARKETING ANALYST What is the reason for testing?->Patient history unknown (Batched) Cassie Trent NP LAB MICROBIOLOGY - [facility] AL ORDERABLES Final Result [facility] Department [place] [address] * ECG 12 lead (06/12/2021 12:13 PM GREEN MARKETING ANALYST) Pathologist [facility] Ventricular Rate EKG/Min 148 BPM [facility] Atrial Rate 156 BPM [facility] QRS-Interval (MSEC) 72 ms [facility] QT-Interval (MSEC) 304 ms [facility] QTc 477 ms [facility] R [place] 38 degrees [facility] T [place] -57 degrees [facility] Diagnosis Atrial fibrillation with rapid ventricular response Nonspecific ST and T wave abnormality Abnormal ECG When compared with ECG of 12-JUN-2021 04:11, (unconfirmed) Criteria for Septal infarct are no longer Present Confirmed by KERRY NICOLE M.D ([id number]) on 06/13/2021 9:16:46 AM [facility] 06/12/2021 12:1 3 PM GREEN MARKETING ANALYST 06/13/2021 9:16 AM GREEN MARKETING ANALYST us Prosper Rodrigues MD ECG ORDERABLES Final Result [facility] * CT Head WO Contrast (06/12/2021 12:11 PM GREEN MARKETING ANALYST) Anatomical Region Laterality Modality Head and Neck N/A Computed Tomogra phy 06/12/2021 12:4 5 PM GREEN MARKETING ANALYST Impressions 06/12/2021 2:15 PM GREEN MARKETING ANALYST Evolving small volume intraventricular hemorrhage and subarachnoid hemorrhage not as well visualized on the current exam. There is no evidence of interval bleed. Dictated by: Vadim Alonzo MD The radiology attending physician has personally reviewed this study, and had reviewed and/or edited this written report and agrees with it. Electronically signed by: Peace Andre M.D. Narrative 06/12/2021 2:15 PM GREEN MARKETING ANALYST EXAMINATION: CT head without contrast HISTORY: Patient presented to an OSH following a fall with associated LOC and head trauma. This occurred after drinking reported [address] negative for intracranial hemorrhage, but subsequent bMRI notable for small volume intraventricular hemorrhage. He was then transferred to [facility] for further evaluation and management. TECHNIQUE: Noncontrast CT of the brain was performed with images acquired from skull base to vertex. COMPARISON: CT of the head 06/11/2021. FINDINGS: Examination of intracranial hemorrhage is limited due to portable technique. Again seen is bilateral layering intraventricular hemorrhage in the occipital horns and scattered throughout the ventricular system. There is no evidence of interval bleed. Small amount of subarachnoid hemorrhage is less well appreciated which may be due to portable technique. Redemonstrated left parietal scalp hematoma. Atherosclerotic calcifications are seen in the bilateral V4 segments of the vertebral arteries and cavernous carotid arteries. Topogram demonstrates no lytic lesions or fractures. There is no acute intracranial hemorrhage. Ventricles are of normal size and morphology. No mass effect or midline shift is present. The yi-white matter differentiation is normal. Bilateral lens replacements. The visualized portions of the mastoids are normal. The visualized portions of the paranasal sinuses are normal. No fractures are identified. Endotracheal tube and nasal enteric tube. Procedure Note Peace Andre MD - 06/12/2021 EXAMINATION: CT head without contrast HISTORY: Patient presented to an OSH following a fall with associated LOC and head trauma. This occurred after drinking reported [address] negative for intracranial hemorrhage, but subsequent bMRI notable for small volume intraventricular hemorrhage. He was then transferred to [facility] for further evaluation and management. TECHNIQUE: Noncontrast CT of the brain was performed with images acquired from skull base to vertex. COMPARISON: CT of the head 06/11/2021. FINDINGS: Examination of intracranial hemorrhage is limited due to portable technique. Again seen is bilateral layering intraventricular hemorrhage in the occipital horns and scattered throughout the ventricular system. There is no evidence of interval bleed. Small amount of subarachnoid hemorrhage is less well appreciated which may be due to portable technique. Redemonstrated left parietal scalp hematoma. Atherosclerotic calcifications are seen in the bilateral V4 segments of the vertebral arteries and cavernous carotid arteries. Topogram demonstrates no lytic lesions or fractures. There is no acute intracranial hemorrhage. Ventricles are of normal size and morphology. No mass effect or midline shift is present. The yi-white matter differentiation is normal. Bilateral lens replacements. The visualized portions of the mastoids are normal. The visualized portions of the paranasal sinuses are normal. No fractures are identified. Endotracheal tube and nasal enteric tube. IMPRESSION: Evolving small volume intraventricular hemorrhage and subarachnoid hemorrhage not as well visualized on the current exam. There is no evidence of interval bleed. Dictated by: Vadim Alonzo MD The radiology attending physician has personally reviewed this study, and had reviewed and/or edited this written report and agrees with it. Electronically signed by: Peace Andre M.D. Cassie Trent TEXTILE MACHINE MAINTENANCE MECHANIC IMG CT PROCEDURES Final Result * eGFR (06/12/2021 11:44 AM GREEN MARKETING ANALYST) eGFR See Comment 90 - 130 [facility] Comment: Credited: Sample investigated and found to be an improper collection (e.g., IV fluid contamination, improper tube type). Deleted at the Request of Radha Shi RN on 06/12/2021 13:21:53 GREEN MARKETING ANALYST by sharan. Interpretive Data Reference Interval Normal ?>/= 90 [...] interpretive data was last reviewed 2021. Blood 06/12/2021 11:4 4 AM GREEN MARKETING ANALYST 06/12/2021 11:55 AM GREEN MARKETING ANALYST Cassie Trent TEXTILE MACHINE MAINTENANCE MECHANIC LAB BLOOD ORDERABLES Aime renetta Result - Final [facility] [address] [facility] [address] [place] [address] * Differential, auto (06/12/2021 11:44 AM GREEN MARKETING ANALYST) Neutrophil abs 4.7 1.7 - 6.5 K/cumm [facility] Imm gran abs 0.0 0.0 - 0.1 K/cumm [facility] Lymphocyte abs 1.3 0.8 - 3.3 K/cumm [facility] Monocyte abs 0.4 0.2 - 0.8 K/cumm [facility] Eosinophil abs 0.1 0.0 - 0.5 K/cumm [facility] Basophil abs 0.0 0.0 - 0.1 K/cumm [facility] Neutrophil pct 72.7 % [facility] Comment: Interpretive Data Percent cell count reference ranges are not reported, since discordance with absolute values may lead to misinterpretation of CBC data. Current Interpretive Data was last revised on 2017. Imm gran pct 0.2 % [facility] Comment: Interpretive Data Percent cell count reference ranges are not reported, since discordance with absolute values may lead to misinterpretation of CBC data. Current Interpretive Data was last revised on 2017. Lymphocyte pct 19.2 % [facility] Comment: Interpretive Data Percent cell count reference ranges are not reported, since discordance with absolute values may lead to misinterpretation of CBC data. Current Interpretive Data was last revised on 2017. Monocyte pct 6.5 % [facility] Comment: Interpretive Data Percent cell count reference ranges are not reported, since discordance with absolute values may lead to misinterpretation of CBC data. Current Interpretive Data was last revised on 2017. Eosinophil pct 1.1 % [facility] Comment: Interpretive Data Percent cell count reference ranges are not reported, since discordance with absolute values may lead to misinterpretation of CBC data. Current Interpretive Data was last revised on 2017. Basophil pct 0.3 % [facility] Comment: Interpretive Data Percent cell count reference ranges are not reported, since discordance with absolute values may lead to misinterpretation of CBC data. Current Interpretive Data was last revised on 2017. Blood 06/12/2021 11:4 4 AM GREEN MARKETING ANALYST 06/12/2021 11:55 AM GREEN MARKETING ANALYST Cassie Trent TEXTILE MACHINE MAINTENANCE MECHANIC LAB BLOOD ORDERABLES Fin al Result [facility] Department [place] [address] * (ABNORMAL) CBC with auto differential (06/12/2021 11:44 AM GREEN MARKETING ANALYST) Pathologist [facility] WBC 6.5 3.8 - 9.9 K/cumm [facility] Hgb 12.5(L) 13.0 - 17.5 g/dL [facility] Hct 37.5(L) 38.9 - 50.3 % [facility] Plt 74(L) 150 - 400 K/cumm [facility] Comment:No clot detected in sample. Although platelets are clumped on slide, platelet estimate appears adequate to increased in number. MPV 11.5 9.1 - 12.3 fL [facility] RBC 3.60(L) 4.30 - 5.80 M/cumm [facility] MCV 104.2(H) 81.3 - 96.4 fL [facility] MCH 34.7(H) 27.1 - 33.3 pg [facility] MCHC 33.3 32.3 - 35.7 g/dL [facility] RDW CV 12.7 11.1 - 14.9 % [facility] RDW SD 48.6(H) 35.7 - 48.1 fL [facility] NRBC abs 0.00 0.00 - 0.01 K/cumm [facility] Blood 06/12/2021 11:4 4 AM GREEN MARKETING ANALYST 06/12/2021 11:55 AM GREEN MARKETING ANALYST Cassie Trent LAB BLOOD ORDERABLES Fin al Result Performing Organization Address [facility] de Phone Number [facility] [place] [address] * (ABNORMAL) Blood gas, arterial (06/12/2021 11:44 AM GREEN MARKETING ANALYST) pH, Art 7.47(H) 7.35 - 7.45 [facility] PCO2, Arterial 31(L) 35 - 45 mmHg [facility] PO2, Arterial 105 83 - 108 mmHg [facility] HCO3 Art (Calculated) 23 20 - 30 mmol/L [facility] BE, art 0 mmol/L [facility] Comment: Interpretive Data No Reference Range Established Current Interpretive Data was last revised on 2017 O2 Sat Art (Measured) 98(H) 90 - 95 % [facility] Blood 06/12/2021 11:4 4 AM GREEN MARKETING ANALYST 06/12/2021 11:53 AM GREEN MARKETING ANALYST Cassie Trent TEXTILE MACHINE MAINTENANCE MECHANIC LAB BLOOD ORDERABLES Fin al Result Performing Organization Address [facility] Co de Phone Number [facility] [place] [address] * Type and screen (06/12/2021 11:44 AM GREEN MARKETING ANALYST) Pathologist [facility] Nancy, indirect Negative [facility] ABO Rh O Positive [facility] Blood 06/12/2021 11:4 4 AM GREEN MARKETING ANALYST 06/12/2021 11:55 AM GREEN MARKETING ANALYST Narrative [facility] - 06/12/2021 12:44 PM GREEN MARKETING ANALYST Has the patient had Daratumumab or Isatuximab in the past 6 months?->[facility] TEST ORDE RABLES Final Result Performing Organization Address [facility] de Phone Number [facility] [place] [address] * Phosphorus (06/12/2021 11:44 AM GREEN MARKETING ANALYST) [facility] Phosphorus, pl See Comment 2.3 - 4.5 mg/dL [facility] Comment:Credited: Sample inv estigated and found to be an improper collection (e.g., IV fluid contamination, improper tube type). Deleted at the Request of Radha Shi RN on 06/12/2021 13:21:53 GREEN MARKETING ANALYST by sharan. Blood 06/12/2021 11:4 4 AM GREEN MARKETING ANALYST 06/12/2021 11:55 AM GREEN MARKETING ANALYST [facility] LAB BLOOD ORDERABLES Aime renetta Result - Final Performing Organization Address City/[facility]/ZIP Co de Phone Number [facility] Department [place] [address] * Magnesium (06/12/2021 11:44 AM GREEN MARKETING ANALYST) [facility] Magnesium See Comment 1.4 - 2.5 mg/dL [facility] Comment: Repeated and Verified Critical result called to and read back by Radha WINTER) on 06/12/2021 13:21:20 GREEN MARKETING ANALYST to sharan. Credited: Sample investigated and found to be an improper collection (e.g., IV fluid contamination, improper tube type). Deleted at the Request of Radha Shi RN on 06/12/2021 13:21:53 GREEN MARKETING ANALYST by sharan. Blood 06/12/2021 11:4 4 AM GREEN MARKETING ANALYST 06/12/2021 11:55 AM GREEN MARKETING ANALYST Cassie Trent TEXTILE MACHINE MAINTENANCE MECHANIC LAB BLOOD ORDERABLES Aime renetta Result - Final [facility] Department [place] [address] * Comprehensive metabolic panel (06/12/2021 11:44 AM GREEN MARKETING ANALYST) Sodium See Comment 135 - 145 mmol/L [facility] Comment: Repeated and Verified Critical result called to and read back by Radha Shi (GAURAV) on 06/12/2021 13:21:20 GREEN MARKETING ANALYST to sharan. Credited: Sample investigated and found to be an improper collection (e.g., IV fluid contamination, improper tube type). Deleted at the Request of Radha Shi RN on 06/12/2021 13:21:53 GREEN MARKETING ANALYST by sharan. Potassium, pl See Comment 3.3 - 4.9 mmol/L [facility] Comment: Hemolyzed; Potassium value may be falsely elevated by as much as 0.3-0.5 mmol/L. ??Suggest redraw and reanalysis. Credited: Sample investigated and found to be an improper collection (e.g., IV fluid contamination, improper tube type). Deleted at the Request of Radha Shi RN on 06/12/2021 13:21:53 GREEN MARKETING ANALYST by sharan. Chloride See Comment 97 - 110 mmol/L [facility] Comment: Repeated and Verified Credited: Sample investigated and found to be an improper collection (e.g., IV fluid contamination, improper tube type). Deleted at the Request of Radha Shi RN on 06/12/2021 13:21:53 GREEN MARKETING ANALYST by sharan. CO2 See Comment 22 - 32 mmol/L [facility] Comment:Credited: Sample inv estigated and found to be an improper collection (e.g., IV fluid contamination, improper tube type). Deleted at the Request of Radha Shi RN on 06/12/2021 13:21:53 GREEN MARKETING ANALYST by sharan. Anion gap See Comment 2 - 15 mmol/L [facility] Comment:Credited: Sample inv estigated and found to be an improper collection (e.g., IV fluid contamination, improper tube type). Deleted at the Request of Radha Shi RN on 06/12/2021 13:21:53 GREEN MARKETING ANALYST by sharan. BUN See Comment 8 - 25 mg/dL [facility] Comment:Credited: Sample inv estigated and found to be an improper collection (e.g., IV fluid contamination, improper tube type). Deleted at the Request of Radha Shi RN on 06/12/2021 13:21:53 GREEN MARKETING ANALYST by sharan. Creatinine See Comment 0.80 - 1.30 mg/dL [facility] Comment:Credited: Sample inv estigated and found to be an improper collection (e.g., IV fluid contamination, improper tube type). Deleted at the Request of Radha Shi RN on 06/12/2021 13:21:53 GREEN MARKETING ANALYST by sharan. Glucose See Comment 70 - 199 mg/dL [facility] Comment: Credited: Sample investigated and found to be an improper collection (e.g., IV fluid contamination, improper tube type). Deleted at the Request of Radha Shi RN on 06/12/2021 13:21:53 GREEN MARKETING ANALYST by sharan. Interpretive Data Fasting glucose >/= 126 mg/dl [...] interpretive data was last revised 2017. Calcium See Comment 8.5 - 10.3 mg/dL [facility] Comment: Reviewed Critical result called to and read back by Radha WINTER) on 06/12/2021 13:21:20 GREEN MARKETING ANALYST to sharan. Credited: Sample investigated and found to be an improper collection (e.g., IV fluid contamination, improper tube type). Deleted at the Request of Radha Shi RN on 06/12/2021 13:21:53 GREEN MARKETING ANALYST by sharan. Bilirubin, total See Comment 0.1 - 1.2 mg/dL [facility] Comment:Credited: Sample inv estigated and found to be an improper collection (e.g., IV fluid contamination, improper tube type). Deleted at the Request of Radha Shi RN on 06/12/2021 13:21:53 GREEN MARKETING ANALYST by sharan. Protein, pl See Comment 6.5 - 8.5 g/dL [facility] Comment:Credited: Sample inv estigated and found to be an improper collection (e.g., IV fluid contamination, improper tube type). Deleted at the Request of Radha Shi RN on 06/12/2021 13:21:53 GREEN MARKETING ANALYST by sharan. Albumin See Comment 3.5 - 5.0 g/dL [facility] Comment:Credited: Sample inv estigated and found to be an improper collection (e.g., IV fluid contamination, improper tube type). Deleted at the Request of Radha Shi RN on 06/12/2021 13:21:53 GREEN MARKETING ANALYST by sharan. Alk phos See Comment 40 - 130 Units/L [facility] Comment:Credited: Sample inv estigated and found to be an improper collection (e.g., IV fluid contamination, improper tube type). Deleted at the Request of Radha Shi RN on 06/12/2021 13:21:53 GREEN MARKETING ANALYST by sharan. ALT See Comment 7 - 55 Units/L [facility] Comment:Credited: Sample inv estigated and found to be an improper collection (e.g., IV fluid contamination, improper tube type). Deleted at the Request of Radha Shi RN on 06/12/2021 13:21:53 GREEN MARKETING ANALYST by sharan. AST See Comment 10 - 50 Units/L [facility] Comment: Hemolyzed; result may be falsely elevated Credited: Sample investigated and found to be an improper collection (e.g., IV fluid contamination, improper tube type). Deleted at the Request of Radha Shi RN on 06/12/2021 13:21:53 GREEN MARKETING ANALYST by sharan. Blood 06/12/2021 11:4 4 AM GREEN MARKETING ANALYST 06/12/2021 11:55 AM GREEN MARKETING ANALYST us Cassie Trent NP LAB BLOOD ORDERABLES Aime renetta Result - Final [facility] [place] [address] * POCT glucose (06/12/2021 11:11 AM GREEN MARKETING ANALYST) Pathologist [facility] Glucose, POC 90 70 - 199 mg/dL [facility] Blood 06/12/2021 11:1 1 AM GREEN MARKETING ANALYST 06/12/2021 11:11 AM GREEN MARKETING ANALYST us Seth Kiser MD LAB POCT ORDERABLES - DEVIC E Final Result Performing Organization Address [facility]/ZIP Co de Phone Number [facility] Department [place] [address] * (ABNORMAL) Arterial Blood gas w/Lactate POCT (06/12/2021 10:53 AM GREEN MARKETING ANALYST) [facility] Lactate POC i-STAT <0.5(L) 0.7 - 2.2 mmol/L [facility] pH POC 7.43 7.35 - 7.45 [facility] pCO2, Art POC 36 35 - 45 mmHg [facility] PO2 POC 82 80 - 105 mmHg [facility] CO2, total POC 24 20 - 30 mmol/L [facility] HCO3, POC 23 21 - 30 mmol/L [facility] BE POC -1 -2 - 3 mmol/L [facility] O2 sat POC 96 95 - 98 % [facility] Blood 06/12/2021 10:5 3 AM GREEN MARKETING ANALYST 06/12/2021 10:53 AM GREEN MARKETING ANALYST us Seth Kiser MD LAB BLOOD ORDERABLES Final Result Performing Organization Address City/[facility]/ZIP Co de Phone Number [facility] Department [place] [address] * (ABNORMAL) Blood gas, arterial (06/12/2021 9:59 AM GREEN MARKETING ANALYST) [facility] pH, Art 7.41 7.35 - 7.45 [facility] PCO2, Arterial 38 35 - 45 mmHg [facility] PO2, Arterial 77(L) 83 - 108 mmHg [facility] HCO3 Art (Calculated) 24 20 - 30 mmol/L [facility] BE, art 0 mmol/L [facility] Comment: Interpretive Data No Reference Range Established Current Interpretive Data was last revised on 2017 O2 Sat Art (Measured) 94 90 - 95 % [facility] Blood 06/12/2021 9:59 AM GREEN MARKETING ANALYST 06/12/2021 10:39 AM GREEN MARKETING ANALYST Mark Early NP LAB BLOOD ORDERABLES Mariangel l Result Performing Organization Address [facility]/ZIP Co de Phone Number [place] [address] * POCT glucose (06/12/2021 4:12 AM GREEN MARKETING ANALYST) [facility] Glucose, POC 88 70 - 199 mg/dL [facility] Blood 06/12/2021 4:12 AM GREEN MARKETING ANALYST 06/12/2021 4:12 AM GREEN MARKETING ANALYST Seth Kiser MD LAB POCT ORDERABLES - DEVIC E Final Result Performing Organization Address [facility]/ZIP [place] [address] * ECG 12 lead (06/12/2021 4:11 AM GREEN MARKETING ANALYST) [facility] Ventricular Rate EKG/Min 112 BPM [facility] Atrial Rate 150 BPM [facility] QRS-Interval (MSEC) 76 ms [facility] QT-Interval (MSEC) 340 ms [facility] QTc 464 ms [facility] R [place] 26 degrees [facility] T [place] -24 degrees [facility] Diagnosis Atrial fibrillation with rapid ventricular response with premature ventricular or aberrantly conducted complexes Septal infarct (cited on or before 11-JUN-2021) Abnormal ECG When compared with ECG of 11-JUN-2021 19:45, (unconfirmed) Questionable change in initial forces of Septal leads Confirmed by VENKAT KANG M.D ([id number]) on 06/12/2021 1:42:01 PM [facility] 06/12/2021 4:11 AM GREEN MARKETING ANALYST 06/12/2021 1:42 PM GREEN MARKETING ANALYST us Seth Kiser MD ECG ORDERABLES Final [facility]ul [facility] * XR Chest 1 View (06/11/2021 10:20 PM GREEN MARKETING ANALYST) Anatomical Region Laterality Modality Body, Chest N/A Computed Radiogr aphy 06/12/2021 8:57 AM GREEN MARKETING ANALYST Impressions 06/12/2021 12:41 PM GREEN MARKETING ANALYST The current study is compared with the prior radiograph dated ??02/19/2020. There is no focal consolidation, pleural effusion, or pneumothorax. Cardiomediastinal silhouette is unchanged with atherosclerosis in the aorta. Dictated by: Saqib Campa M.D. The radiology attending physician has personally reviewed this study, and had reviewed and/or edited this written report and agrees with it. Electronically signed by: Tommy Bearden M.D. Narrative 06/12/2021 12:41 PM GREEN MARKETING ANALYST EXAMINATION: 1 view chest radiograph Procedure Note Tommy Bearden MD - 06/12/2021 EXAMINATION: 1 view chest radiograph IMPRESSION: The current study is compared with the prior radiograph dated 02/19/2020. There is no focal consolidation, pleural effusion, or pneumothorax. Cardiomediastinal silhouette is unchanged with atherosclerosis in the aorta. Dictated by: Saqib Campa M.D. The radiology attending physician has personally reviewed this study, and had reviewed and/or edited this written report and agrees with it. Electronically signed by: Tommy Bearden M.D. us Seth Kiser MD IMG XR PROCEDURES Final Res ult * (ABNORMAL) Urinalysis reflex to microscopic and culture Urine (06/11/2021 10:02 PM GREEN MARKETING ANALYST) Color, ur Yellow Yellow [facility] Clarity, ur Clear Clear [facility] Specific gravity, ur 1.013 1.003 - 1.030 [facility] pH, urine 7.5 [facility] Protein, ur ql Negative Negative [facility] Glucose, ur ql Negative Negative [facility] Ketones, ur 1+(A) Negative [facility] Bilirubin, ur Negative Negative [facility] Blood, ur Negative Negative [facility] Urobilinogen, ur 2.0(A) <2.0 mg/dL [facility] Nitrite, ur Negative Negative [facility] Leukocyte esterase, ur Negative Negative [facility] UA reflex comment Reflex conditions for microscopic UA and culture not met. [facility] Urine 06/11/2021 10:0 2 PM GREEN MARKETING ANALYST 06/11/2021 10:22 PM GREEN MARKETING ANALYST Narrative [facility] 06/11/[facility] 10:32 PM GREEN MARKETING ANALYST ?? Urine pH is affected by diet, medications, systemic acid-base disturbances, and renal tubular function. ??pH may affect urinary stone formation. ??For example, urine pH below 6.0 may help reduce the tendency for calcium phosphate stones and pH greater than 6.0 may reduce the tendency for uric acid stone formation. Source: [employer]. Last revised 04-18-2017 us Seth Kiser MD LAB MICROBIOLOGY - GENERAL ORDERABLES Final Result [facility] [address] Department [place] [address] * CT Head WO Contrast (06/11/2021 9:23 PM GREEN MARKETING ANALYST) Anatomical Region Laterality Modality Head and Neck N/A Computed Tomogra phy 06/11/2021 10:1 2 PM GREEN MARKETING ANALYST Impressions 06/12/2021 5:29 AM GREEN MARKETING ANALYST Scattered subarachnoid hemorrhage and intraventricular hemorrhage and left parietal scalp hematoma. The constellation of findings are most suggestive of a traumatic etiology. The overall findings are more conspicuous in today's examination in comparison to 06/08/2021. The Critical results were discussed with neurosurgery resident by Dr. Cohen on 06/11/2021 at 9:30 PM Dictated by: Ian Cohen M.D. The radiology attending physician has personally reviewed this study, and had reviewed and/or edited this written report and agrees with it. Electronically signed by: Kerwin Doss M.D. Narrative 06/12/2021 5:29 AM GREEN MARKETING ANALYST EXAMINATION: CT head without contrast HISTORY: Found down from outside hospital. TECHNIQUE: Noncontrast CT of the brain was performed with images acquired from skull base to vertex. COMPARISON: Outside hospital CT 06/08/2021. FINDINGS: Topogram demonstrates no lytic lesions or fractures. There is right frontal hemorrhagic contusion. There are scattered subarachnoid hemorrhage, which appears increased in conspicuity in comparison to 06/08/2021) and the left frontal lobe and right posterior temporal lobe. There is also layering intraventricular hemorrhage within the occipital horns. There is intracranial atherosclerotic calcifications. There is cerebral volume loss with expected dilatation of the ventricles. There is scalp hematoma in the left parietal scalp. No mass effect or midline shift is present. The yi-white matter differentiation is normal. Bilateral lens replacement. The visualized portions of the mastoids are normal. The visualized portions of the paranasal sinuses are normal. No fractures are identified. Procedure Note Kerwin Doss MD - 06/12/2021 EXAMINATION: CT head without contrast HISTORY: Found down from outside hospital. TECHNIQUE: Noncontrast CT of the brain was performed with images acquired from skull base to vertex. COMPARISON: Outside hospital CT 06/08/2021. FINDINGS: Topogram demonstrates no lytic lesions or fractures. There is right frontal hemorrhagic contusion. There are scattered subarachnoid hemorrhage, which appears increased in conspicuity in comparison to 06/08/2021) and the left frontal lobe and right posterior temporal lobe. There is also layering intraventricular hemorrhage within the occipital horns. There is intracranial atherosclerotic calcifications. There is cerebral volume loss with expected dilatation of the ventricles. There is scalp hematoma in the left parietal scalp. No mass effect or midline shift is present. The yi-white matter differentiation is normal. Bilateral lens replacement. The visualized portions of the mastoids are normal. The visualized portions of the paranasal sinuses are normal. No fractures are identified. IMPRESSION: Scattered subarachnoid hemorrhage and intraventricular hemorrhage and left parietal scalp hematoma. The constellation of findings are most suggestive of a traumatic etiology. The overall findings are more conspicuous in today's examination in comparison to 06/08/2021. The Critical results were discussed with neurosurgery resident by Dr. Cohen on 06/11/2021 at 9:30 PM Dictated by: Ian Cohen M.D. The radiology attending physician has personally reviewed this study, and had reviewed and/or edited this written report and agrees with it. Electronically signed by: Kerwin Doss M.D. us Seth Kiser MD IMG CT PROCEDURES Final Res ult * eGFR (06/11/2021 8:29 PM GREEN MARKETING ANALYST) eGFR >90 90 - 130 mL/min/1. 73 m2 [facility] Comment: Interpretive Data Reference Interval [...] interpretive data was last reviewed 2021. Blood 06/11/2021 8:29 PM GREEN MARKETING ANALYST 06/11/2021 8:47 PM GREEN MARKETING ANALYST us Seth Kiser MD LAB BLOOD ORDERABLES Final Result [facility] [address] Department [place] [address] * Differential, auto (06/11/2021 8:29 PM GREEN MARKETING ANALYST) Neutrophil abs 5.0 1.7 - 6.5 K/cumm [facility] Imm gran abs 0.0 0.0 - 0.1 K/cumm [facility] Lymphocyte abs 1.5 0.8 - 3.3 K/cumm [facility] Monocyte abs 0.5 0.2 - 0.8 K/cumm [facility] Eosinophil abs 0.1 0.0 - 0.5 K/cumm [facility] Basophil abs 0.0 0.0 - 0.1 K/cumm [facility] Neutrophil pct 69.9 % [facility] Comment: Interpretive Data Percent cell count reference ranges are not reported, since discordance with absolute values may lead to misinterpretation of CBC data. Current Interpretive Data was last revised on 2017. Imm gran pct 0.4 % [facility] Comment: Interpretive Data Percent cell count reference ranges are not reported, since discordance with absolute values may lead to misinterpretation of CBC data. Current Interpretive Data was last revised on 2017. Lymphocyte pct 20.6 % [facility] Comment: Interpretive Data Percent cell count reference ranges are not reported, since discordance with absolute values may lead to misinterpretation of CBC data. Current Interpretive Data was last revised on 2017. Monocyte pct 6.9 % [facility] Comment: Interpretive Data Percent cell count reference ranges are not reported, since discordance with absolute values may lead to misinterpretation of CBC data. Current Interpretive Data was last revised on 2017. Eosinophil pct 1.6 % [facility] Comment: Interpretive Data Percent cell count reference ranges are not reported, since discordance with absolute values may lead to misinterpretation of CBC data. Current Interpretive Data was last revised on 2017. Basophil pct 0.6 % [facility] Comment: Interpretive Data Percent cell count reference ranges are not reported, since discordance with absolute values may lead to misinterpretation of CBC data. Current Interpretive Data was last revised on 2017. Blood 06/11/2021 8:29 PM GREEN MARKETING ANALYST 06/11/2021 8:47 PM GREEN MARKETING ANALYST us Seth Kiser MD LAB BLOOD ORDERABLES Final Result [facility] [address] [facility] [address] [place] [address] * (ABNORMAL) CBC with auto differential (06/11/2021 8:29 PM GREEN MARKETING ANALYST) WBC 7.1 3.8 - 9.9 K/cumm [facility] Hgb 14.9 13.0 - 17.5 g/dL [facility] Hct 42.7 38.9 - 50.3 % [facility] Plt 137(L) 150 - 400 K/cumm [facility] MPV 11.0 9.1 - 12.3 fL [facility] RBC 4.28(L) 4.30 - 5.80 M/cumm [facility] MCV 99.8(H) 81.3 - 96.4 fL [facility] MCH 34.8(H) 27.1 - 33.3 pg [facility] MCHC 34.9 32.3 - 35.7 g/dL [facility] RDW CV 12.7 11.1 - 14.9 % [facility] RDW SD 46.2 35.7 - 48.1 fL [facility] NRBC abs 0.00 0.00 - 0.01 K/cumm [facility] Blood 06/11/2021 8:29 PM GREEN MARKETING ANALYST 06/11/2021 8:47 PM GREEN MARKETING ANALYST us Seth Kiser MD LAB BLOOD ORDERABLES Final Result [facility] [place] [address] * (ABNORMAL) Basic metabolic panel (06/11/2021 8:29 PM GREEN MARKETING ANALYST) Sodium 143 135 - 145 mmol/L [facility] Potassium, pl 3.8 3.3 - 4.9 mmol/L [facility] Chloride 106 97 - 110 mmol/L [facility] CO2 30 22 - 32 mmol/L [facility] Anion gap 7 2 - 15 mmol/L [facility] BUN 8 8 - 25 mg/dL [facility] Creatinine 0.75(L) 0.80 - 1.30 mg/dL [facility] Glucose 103 70 - 199 mg/dL [facility] Comment: Interpretive Data Fasting glucose [...] interpretive data was last revised 2017. Calcium 9.2 8.5 - 10.3 mg/dL [facility] Blood 06/11/2021 8:29 PM GREEN MARKETING ANALYST 06/11/2021 8:47 PM GREEN MARKETING ANALYST us Seth Kiser MD LAB BLOOD ORDERABLES Final Result Performing Organization Address [facility]/ZIP Co de Phone Number [facility] Department [place] [place] [address] * aPTT (06/11/2021 8:29 PM GREEN MARKETING ANALYST) aPTT 31 27 - 37 sec [facility] Comment: Interpretive Data Therapeutic heparin range: 60.0 - 94.0 seconds. Based on correlation with therapeutic heparin activity range of 0.3-0.7 Units/mL. Current interpretive data was last revised on 2020. Blood 06/11/2021 8:29 PM GREEN MARKETING ANALYST 06/11/2021 8:48 PM GREEN MARKETING ANALYST Seth Kiser MD LAB BLOOD ORDERABLES Final Result Performing Organization Address [facility] de Phone Number [facility] [place] [address] * Protime-INR (06/11/2021 8:29 PM GREEN MARKETING ANALYST) PT 12.5 9.5 - 13.6 sec [facility] INR 1.1 0.9 - 1.2 [facility] Comment: Interpretive data Oral anticoagulant therapeutic ranges: Venous thromboembolism prophylaxis or treatment: 2.0-3.0 CARDIOLOGY Standard range: 2.0-3.0 High-intensity range: 2.5-3.5 Refer to indication-specific guidelines for appropriate target ranges for prosthetic heart valve replacement. Current interpretive data was last revised on 2019. Blood 06/11/2021 8:29 PM GREEN MARKETING ANALYST 06/11/2021 8:48 PM GREEN MARKETING ANALYST Seth Kiser MD LAB BLOOD ORDERABLES Final Result Performing Organization Address [facility] [place] [address] * Type and screen (06/11/2021 8:29 PM GREEN MARKETING ANALYST) ABO Rh O Positive [facility] Nancy, indirect Negative [facility] Blood 06/11/2021 8:29 PM GREEN MARKETING ANALYST 06/11/2021 9:08 PM GREEN MARKETING ANALYST Narrative [facility] - 06/11/2021 10:32 PM GREEN MARKETING ANALYST Has the patient had Daratumumab or Isatuximab in the past 6 months?->Unknown us Seth Kiser MD LAB BLOOD BANK TEST ORDERAB LES Final Result [facility] [place] [address] * Neuro CT MR Outside Consult (06/11/2021 7:53 PM GREEN MARKETING ANALYST) Anatomical Region Laterality Modality N/A Computed Tomogra phy 06/12/2021 10:4 6 AM GREEN MARKETING ANALYST Impressions 06/12/2021 3:53 PM GREEN MARKETING ANALYST 1. ??Small amount of intraventricular hemorrhage layering in the bilateral occipital horns is again noted. 2. ??Small subcentimeter foci of intraparenchymal hemorrhage noted in the right medial frontal and right lateral occipital lobes. No mass effect or midline shift. 3. ??Trace/minimal subarachnoid hemorrhage also noted. Findings are overall similar to same day head CT. The findings, conclusions and recommendations within this report do not replace the initial findings, conclusions ??and recommendations made at the facility where the study was performed based upon the imaging and clinical condition at that time. ??Comparison with the prior report and clinical history is necessary. ??The provided images may or may not represent the nulato source data set and thus may contain changes that may lower the accuracy of this second-opinion interpretation. Dictated by: Chelsy Joshi MD The radiology attending physician has personally reviewed this study, and had reviewed and/or edited this written report and agrees with it. Electronically signed by: Krista Rosado M.D. Narrative 06/12/2021 3:53 PM GREEN MARKETING ANALYST EXAMINATION: RADIOLOGY CONSULTATION ON OUTSIDE IMAGING STUDY STUDY INITIALLY PERFORMED: 06/11/2021 at [facility] TYPE OF STUDY: Multiple MRI images of the head without contrast are provided at the time of this interpretation. CONTRAST ROUTE: No contrast was administered. The protocol was adequate to address the clinical question. The outside final report was not available at the time of this second opinion interpretation. TYPE OF CONSULTATION: Consult on outside imaging study with images submitted through [facility] DATE OF CONSULTATION: 06/12/2021 9:20 AM HISTORY: Headache COMPARISON: Outside head CT 06/08/2021, CT head 06/11/2021 FINDINGS: Parietal scalp hematoma is more conspicuous on CT. Bilateral small amount of intraventricular hemorrhage layering in the occipital horns. ??Multiple scattered and confluent T2/FLAIR hyperintensities in the periventricular and subcortical white matter most likely sequela of chronic ischemic small vessel disease. There is a small foci of FLAIR hyperintensity in the right posterior temporal/lateral occipital lobe measuring about 7-8 mm and also in the right medial frontal lobe measuring about 5 mm with possible susceptibility suggesting small foci of intraparenchymal hemorrhage. ??Susceptibility imaging/T2 star imaging is however limited because of technique. There is also small focus of subarachnoid hemorrhage in the right ambient cistern that are appreciated on CT. No mass effect or midline shift. Trace subarachnoid hemorrhage noted predominantly along the bilateral frontoparietal sulci with lack of FLAIR suppression Diffusion weighted images reveal no hyperintensities to suggest acute cerebral infarction. There is generalized parenchymal volume loss with prominence of ventricles and sulci. The superior sagittal sinus demonstrates normal venous flow. ??The corpus callosum is normal in shape and signal intensity. The posterior fossa is unremarkable. ??The pituitary and sella are normal. The brainstem and craniocervical junction are unremarkable. The paranasal sinuses are clear and well-aerated. ??The mastoid air cells and middle ear cavities are clear. Bilateral lens replacements. Normal flow voids are demonstrated in the carotid arteries and basilar artery. Procedure Note Krista Rosado MD - 06/12/2021 EXAMINATION: RADIOLOGY CONSULTATION ON OUTSIDE IMAGING STUDY STUDY INITIALLY PERFORMED: 06/11/2021 at [facility] TYPE OF STUDY: Multiple MRI images of the head without contrast are provided at the time of this interpretation. CONTRAST ROUTE: No contrast was administered. The protocol was adequate to address the clinical question. The outside final report was not available at the time of this second opinion interpretation. TYPE OF CONSULTATION: Consult on outside imaging study with images submitted through [facility] DATE OF CONSULTATION: 06/12/2021 9:20 AM HISTORY: Headache COMPARISON: Outside head CT 06/08/2021, CT head 06/11/2021 FINDINGS: Parietal scalp hematoma is more conspicuous on CT. Bilateral small amount of intraventricular hemorrhage layering in the occipital horns. Multiple scattered and confluent T2/FLAIR hyperintensities in the periventricular and subcortical white matter most likely sequela of chronic ischemic small vessel disease. There is a small foci of FLAIR hyperintensity in the right posterior temporal/lateral occipital lobe measuring about 7-8 mm and also in the right medial frontal lobe measuring about 5 mm with possible susceptibility suggesting small foci of intraparenchymal hemorrhage. Susceptibility imaging/T2 star imaging is however limited because of technique. There is also small focus of subarachnoid hemorrhage in the right ambient cistern that are appreciated on CT. No mass effect or midline shift. Trace subarachnoid hemorrhage noted predominantly along the bilateral frontoparietal sulci with lack of FLAIR suppression Diffusion weighted images reveal no hyperintensities to suggest acute cerebral infarction. There is generalized parenchymal volume loss with prominence of ventricles and sulci. The superior sagittal sinus demonstrates normal venous flow. The corpus callosum is normal in shape and signal intensity. The posterior fossa is unremarkable. The pituitary and sella are normal. The brainstem and craniocervical junction are unremarkable. The paranasal sinuses are clear and well-aerated. The mastoid air cells and middle ear cavities are clear. Bilateral lens replacements. Normal flow voids are demonstrated in the carotid arteries and basilar artery. IMPRESSION: 1. Small amount of intraventricular hemorrhage layering in the bilateral occipital horns is again noted. 2. Small subcentimeter foci of intraparenchymal hemorrhage noted in the right medial frontal and right lateral occipital lobes. No mass effect or midline shift. 3. Trace/minimal subarachnoid hemorrhage also noted. Findings are overall similar to same day head CT. The findings, conclusions and recommendations within this report do not replace the initial findings, conclusions and recommendations made at the facility where the study was performed based upon the imaging and clinical condition at that time. Comparison with the prior report and clinical history is necessary. The provided images may or may not represent the nulato source data set and thus may contain changes that may lower the accuracy of this second-opinion interpretation. Dictated by: Chelsy Joshi MD The radiology attending physician has personally reviewed this study, and had reviewed and/or edited this written report and agrees with it. Electronically signed by: Krista Rosado M.D. Belinda Shaffer MD PhD IMG CT PROCEDURES [facility] Result * Neuro CT MR Outside Consult (06/11/2021 7:52 PM GREEN MARKETING ANALYST) Anatomical Region Laterality Modality N/A Computed Tomogra phy 06/11/2021 9:37 PM GREEN MARKETING ANALYST Impressions 06/12/2021 7:57 AM GREEN MARKETING ANALYST This study was initially nominated as a consult on outside images via [facility]. However, a consult was not performed because a more recent head CT was performed at [facility] on 06/11/2021. ??Accordingly, there will be no separate report of this study generated by a [facility] Radiologist. Dictated by: Shaka Preston M.D. The radiology attending physician has personally reviewed this study, and had reviewed and/or edited this written report and agrees with it. Electronically signed by: Kerwin Doss M.D. Narrative 06/12/2021 7:57 AM GREEN MARKETING ANALYST EXAMINATION: ??CHANGE CONSULT ON OUTSIDE IMAGES TO REFERENCE IMAGES Procedure Note Kerwin Doss MD - 06/12/2021 EXAMINATION: CHANGE CONSULT ON OUTSIDE IMAGES TO REFERENCE IMAGES IMPRESSION: This study was initially nominated as a consult on outside images via [facility]. However, a consult was not performed because a more recent head CT was performed at [facility] on 06/11/2021. Accordingly, there will be no separate report of this study generated by a [facility] Radiologist. Dictated by: Shaka Preston M.D. The radiology attending physician has personally reviewed this study, and had reviewed and/or edited this written report and agrees with it. Electronically signed by: Kerwin Doss M.D. Belinda Shaffer MD PhD IMG CT PROCEDURES [facility] Result * ECG 12 lead (06/11/2021 7:45 PM GREEN MARKETING ANALYST) Ventricular Rate EKG/Min 116 BPM [facility] Atrial Rate 136 BPM [facility] QRS-Interval (MSEC) 70 ms [facility] QT-Interval (MSEC) 350 ms [facility] QTc 486 ms [facility] R [place] 45 degrees [facility] T [place] 10 degrees [facility] Diagnosis Atrial fibrillation with rapid ventricular response Septal infarct , age undetermined Abnormal ECG No previous ECGs available Confirmed by VENKAT KANG M.D ([id number]) on 06/12/2021 1:42:36 PM [facility] 06/11/2021 7:45 PM GREEN MARKETING ANALYST 06/12/2021 1:42 PM GREEN MARKETING ANALYST us Seth Kiser MD ECG ORDERABLES Final Resul t [facility] documented in this encounter Visit Diagnoses Diagnosis Intraventricular hemorrhage (CMS/HCC) (HCC)- Primary Diagnosis unknown Closed nondisplaced intertrochanteric fracture of left femur, initial encounter ([facility]) Closed nondisplaced intertrochanteric fracture of left femur with routine healing, subsequent encounter TBI (traumatic brain injury) ([facility]) Intracranial injury of other and unspecified nature, without mention of open intracranial wound, unspecified state of consciousness SAH (subarachnoid hemorrhage) (CMS/HCC) (HCC) Subarachnoid hemorrhage Encephalopathy Unspecified encephalopathy Acute delirium Delirium due to conditions classified elsewhere Hypertension Unspecified essential hypertension Atrial fibrillation (CMS/HCC) (HCC) Atrial fibrillation Chronic systolic heart failure (CMS/HCC) (HCC) Chronic systolic heart failure Hypercholesterolemia Pure hypercholesterolemia Scrotal abscess Other inflammatory disorder of male genital organs Closed nondisplaced intertrochanteric fracture of left femur (HCC) Dysphagia Orthostatic hypotension Acute respiratory failure (HCC) Acute respiratory failure Acute on chronic anemia Thrombocytopenia ([facility]) Unspecified thrombocytopenia documented in this encounter Administered Medications Inactive Administered Medications - up to 3 most recent administrations Medication Order MAR Action Action Date Dose Rate Site acetaminophen (TYLENOL) tablet 650 mg 650 mg, feeding tube, Every 4 hours PRN, fever, 1st line for pain, temperature greater than 38.5 C, Starting on 06/12/21 at 1550 Given 07/06/2021 6:49 PM CDT 650 mg Given 07/05/2021 9:29 PM CDT 650 mg Given 06/18/2021 12:35 AM GREEN MARKETING ANALYST 650 mg albuterol 2.5 mg/0.5 mL nebulizer solution 1.25 mg 1.25 mg, nebulization, Every 6 hours PRN (customer response representative), wheezing, Starting on Zoe 06/22/21 at 1113 amiodarone (NEXTERONE) 150 mg/100 mL (1.5 mg/mL) in dextrose (premix) 150 mg 150 mg, intravenous, at 600 mL/hr, Administer over 10 Minutes, Once, On Sat06/13/21 at 0330, For 1 dose, Use filter 0.22 micron or less New Bag 06/13/2021 3:03 AM GREEN MARKETING ANALYST 150 mg 600 mL/hr amiodarone (PACERONE) tablet 200 mg 200 mg, feeding tube, Daily, First dose on Sat06/19/21 at 0900 Given 06/22/2021 9:00 AM CDT 200 mg Given 06/21/2021 9:11 AM CDT 200 mg Given 06/20/2021 8:22 AM CDT 200 mg amiodarone (PACERONE) tablet 400 mg 400 mg, feeding tube, 3 times daily, First dose on Sat06/14/21 at 0900, For 5 days Given 06/18/2021 9:11 PM CDT 400 m g Given 06/18/2021 3:48 PM CDT 400 mg Given 06/18/2021 8:08 AM CDT 400 mg amiodarone in dextrose (NEXTERONE) 360 mg/200 mL (1.8 mg/mL) infusion (premix) 1 mg/min (33.3333 mL/hr, rounded to 33.3 mL/hr), 1.8 mg/mL, intravenous, Continuous, Starting on Sat06/13/21 at 0330, Until Sat06/13/21 at 0918, Use filter 0.22 micron or less, Routine New Bag 06/13/2021 3:19 AM GREEN MARKETING ANALYST 1 mg/min 33.3 mL/hr amiodarone in dextrose (NEXTERONE) 360 mg/200 mL (1.8 mg/mL) infusion (premix) 0.5 mg/min (16.6667 mL/hr, rounded to 16.67 mL/hr), 1.8 mg/mL, intravenous, Continuous, Starting on Sat06/13/21 at 0919, Until Sat06/13/21 at 1222, Use filter 0.22 micron or less, Routine New Bag 06/13/2021 8:58 AM GREEN MARKETING ANALYST 0.5 mg/min 16.67 mL/hr amiodarone in dextrose (NEXTERONE) 360 mg/200 mL (1.8 mg/mL) infusion (premix) 0.5 mg/min (16.6667 mL/hr, rounded to 16.67 mL/hr), 1.8 mg/mL, intravenous, Continuous, Starting on Sat06/13/21 at 1300, Until Sat06/14/21 at 0227, Use filter 0.22 micron or less, Routine Restarted 06/13/2021 12:28 PM GREEN MARKETING ANALYST 0.5 mg/min 16.67 mL/hr artificial saliva (MOUTH KOTE) spray 2 application 2 application (deactivated), mouth/throat, Every 4 hours PRN, dry mouth, Starting on Sat06/12/21 at 1728 Given 06/14/2021 9:04 PM GREEN MARKETING ANALYST 2 application (deactivated) Given 06/14/2021 3:00 PM GREEN MARKETING ANALYST 2 application (deactivat ed) Given 06/14/2021 8:34 AM GREEN MARKETING ANALYST 2 application (deactivat ed) barium sulfate (VARIBAR NECTAR) 40 % (w/v) nectar oral, Once in imaging, contrast, Starting on Sat06/26/21 at 1313, For 1 dose, Pre-Op/Floor, Shake well Contrast Given 06/26/2021 1:13 PM CDT 20 mL barium sulfate (VARIBAR NECTAR) 40 % (w/v) nectar oral, Once in imaging, contrast, Starting on Sat07/05/21 at 1444, For 1 dose, Pre-Op/Floor, Shake well Contrast Given 07/05/2021 2:46 PM CDT 15 mL barium sulfate (VARIBAR PUDDING) 40 % (w/v), 30% (w/w) pudding oral, Once in imaging, contrast, Starting on Sat06/26/21 at 1314, For 1 dose, Pre-Op/Floor Contrast Given 06/26/2021 1:14 PM CDT 15 mL barium sulfate (VARIBAR PUDDING) 40 % (w/v), 30% (w/w) pudding oral, Once in imaging, contrast, Starting on Sat07/05/21 at 1444, For 1 dose, Pre-Op/Floor Contrast Given 07/05/2021 2:44 PM CDT 10 mL barium sulfate (VARIBAR THIN LIQUID) 81 % (w/w) thin liquid oral, Once in imaging, contrast, Starting on 06/26/21 at 1311, For 1 dose, Pre-Op/Floor Contrast Given 06/26/2021 1:11 PM CDT 15 mL barium sulfate (VARIBAR THIN LIQUID) 81 % (w/w) thin liquid oral, Once in imaging, contrast, Starting on 07/05/21 at 1442, For 1 dose, Pre-Op/Floor Contrast Given 07/05/2021 2:47 PM CDT 25 mL barium sulfate (VARIBAR) 40 % (w/v) 29% (w/w) suspension 250 mL 250 mL, oral, Once in imaging, contrast, Starting on 06/26/21 at 1317, For 1 dose, Pre-Op/Floor, Shake well Contrast Given 06/26/2021 1:17 PM CDT 250 mL bisacodyL (DULCOLAX) suppository 10 mg 10 mg, rectal, Once, On Sat06/27/21 at 1330, For 1 dose, Indications: constipationIndications:const ipation Given 06/27/2021 2:07 PM CDT 10 mg ceFAZolin (ANCEF) 2,000 mg/20 mL in sterile water (premix) 2,000 mg 2,000 mg, intravenous, at 400 mL/hr, Administer over 3 Minutes, Every 8 hours, First dose on Sat07/04/21 at 1315, For 2 doses, Beginning 8 hours after pre-op dose., Indications: Prophylaxis, SurgicalIndications:Prophylax is, Surgical Given 07/04/2021 8:31 PM CDT 2,000 mg 400 mL/hr Given 07/04/2021 4:23 PM CDT 2,000 mg 400 mL/hr cefTRIAXone (ROCEPHIN) 2,000 mg/20 mL in sterile water (premix) 2,000 mg 2,000 mg, intravenous, at 1,200 mL/hr, Administer over 1 Minutes, Every 24 hours scheduled, First dose on 06/17/21 at 1700, Indications: scrotal abscessIndications:scrotal abscess Given 06/17/2021 8:47 PM GREEN MARKETING ANALYST 2,000 mg 1200 mL/hr chlorhexidine (PERIDEX) 0.12 % solution 15 mL 15 mL, swish & spit, Once, On Sat06/13/21 at 0830, For 1 dose Given 06/13/2021 8:20 AM GREEN MARKETING ANALYST 15 mL chlorhexidine (PERIDEX) 0.12 % solution 15 mL 15 mL, swish & spit, 2 times daily, First dose (after last modification) on Sat06/15/21 at 0515 Given 06/15/2021 5:57 AM GREEN MARKETING ANALYST 15 mL chlorhexidine (PERIDEX) 0.12 % solution 15 mL 15 mL, mouth/throat, 2 times daily, First dose on Sat06/15/21 at 1000 Given 06/18/2021 8:07 AM CDT 15 mL Given 06/17/2021 8:47 PM GREEN MARKETING ANALYST 15 mL Given 06/17/2021 8:17 AM GREEN MARKETING ANALYST 15 mL clindamycin (CLEOCIN) 600 mg/50 mL in sodium chloride 0.9% (premix) piggyback 600 mg 600 mg, intravenous, at 100 mL/hr, Administer over 30 Minutes, Every 8 hours scheduled, First dose on Sat06/18/21 at 0900, Indications: Skin/Soft Tissue InfectionIndications:Skin/Soft Tissue Infection New Bag 06/20/2021 3:57 AM CDT 600 mg 100 mL/hr New Bag 06/19/2021 8:01 PM CDT 600 mg 100 mL/hr New Bag 06/19/2021 1:32 PM CDT 600 mg 100 mL/hr dexmedeTOMIDine in 0.9% sodium chloride (PRECEDEX) 400 mcg/100 mL (4 mcg/mL) infusion (premix) 0-1.5 mcg/kg/hr ? 85.8 kg Dosing weight (0-32.175 mL/hr, rounded to 0-32.18 mL/hr), 4 mcg/mL, intravenous, Titrated, Starting on Sat06/14/21 at 0000, Until Sat06/14/21 at 0538, Titration instructions: Titrate, Initial dose: 0.2 mcg/kg/hr, Titrate: Up/Down, Titrate by: 0.1 mcg/kg/hr, Every: 30 minutes, Goal: RASS, RASS Goal: 0, Routine Rate/Dose Change 06/14/2021 2:16 AM GREEN MARKETING ANALYST 0.4 mcg/kg/hr 8.58 mL/hr Rate/Dose Change 06/14/2021 1:45 AM GREEN MARKETING ANALYST 0.3 mcg/kg/hr 6.44 mL/hr New Bag 06/14/2021 12:17 AM GREEN MARKETING ANALYST 0.2 mcg/kg/hr 4.29 mL/h r dextrose 5% and Lactated Ringer's infusion 50 mL/hr, intravenous, Continuous, Starting on Zoe 06/29/21 at 1530 New Bag 07/03/2021 11:09 AM CDT 50 mL/hr 50 mL/hr New Bag 07/02/2021 2:40 AM CDT 50 mL/hr 50 mL/hr New Bag 06/30/2021 5:54 PM CDT 50 mL/hr 50 mL/hr diatrizoate meglumine-diatrizoate sodium (GASTROGRAFIN/MD-GASTROVIEW) 66-10 % solution 30 mL 30 mL, nasogastric tube, Once in imaging, contrast, Starting on Sat06/30/21 at 1509, For 1 dose, Pre-Op/Floor Contrast Given 06/30/2021 3:10 PM CDT 20 mL docusate (COLACE) 10 mg/mL oral liquid 100 mg 100 mg, feeding tube, 2 times daily, First dose on Sat06/11/21 at 2100, If medications administered per tube. , Indications: constipation, Stool SoftenerIndications:constipation,Sto ol Softener Given 06/18/2021 8:07 AM CDT 100 mg Given 06/17/2021 8:47 PM GREEN MARKETING ANALYST 100 mg Given 06/17/2021 8:17 AM GREEN MARKETING ANALYST 100 mg docusate (COLACE) 10 mg/mL oral liquid 100 mg 100 mg, feeding tube, Daily, First dose on Sat06/26/21 at 0900, Indications: constipationIndications:constipation Given 07/07/2021 9:49 AM CDT 100 mg Given 07/06/2021 9:56 AM CDT 100 mg Given 07/05/2021 7:55 AM CDT 100 mg etomidate (AMIDATE) 2 mg/mL injection - ADS Override Pull Starting on Sat06/15/21 at 0213, For 1 dose, Created by cabinet override Given 06/15/2021 2:34 AM GREEN MARKETING ANALYST famotidine (PEPCID) tablet 20 mg 20 mg, oral, Daily, First dose on Sat07/07/21 at 1045 Given 07/07/2021 11:01 AM CDT 20 mg fentaNYL (SUBLIMAZE) 50 mcg/mL preservative free injection - ADS Override Pull Starting on Zoe 06/15/21 at 0214, For 1 dose, Created by cabinet override Given 06/15/2021 2:38 AM GREEN MARKETING ANALYST 100 mcg fentaNYL (SUBLIMAZE) 50 mcg/mL preservative free injection - ADS Override Pull Starting on Zoe 06/15/21 at 0254, For 1 dose, Created by cabinet override Given 06/15/2021 3:16 AM GREEN MARKETING ANALYST 50 mcg fluticasone furoate-vilanteroL (BREO ELLIPTA) 100-25 mcg/dose inhaler 1 puff 1 puff, inhalation, Daily (customer response representative), First dose on 07/01/21 at 1430, Rinse mouth with water after use. Do not swallow. Given 07/07/2021 8:13 AM C DT 1 puff Given 07/06/2021 9:50 AM CDT 1 puff Given 07/05/2021 4:37 PM CDT 1 puff folic acid (FOLVITE) tablet 1 mg 1 mg, feeding tube, Daily, First dose on 06/12/21 at 1245 Given 06/20/2021 8:22 AM CDT 1 mg Given 06/19/2021 8:28 AM CDT 1 mg Given 06/18/2021 8:08 AM CDT 1 mg furosemide (LASIX) 10 mg/mL injection 20 mg 20 mg, intravenous, Once, On Sat06/14/21 at 0200, For 1 dose, For IV push: administer doses < 160 mg at a rate of 20 -40 mg/min. Doses >/= 160 mg should be administered no faster than 4 mg/min. Room temperature only Given 06/14/2021 1:3 7 AM GREEN MARKETING ANALYST 20 mg furosemide (LASIX) tablet 20 mg 20 mg, feeding tube, Daily, First dose on Sat06/14/21 at 1145 Given 06/23/2021 8:02 AM CDT 20 mg Given 06/22/2021 9:00 AM CDT 20 mg Given 06/21/2021 9:11 AM CDT 20 mg gadoterate meglumine (DOTAREM) 0.5 mmol/mL injection 15 mL 15 mL, intravenous, Once in imaging, contrast, Starting on Sat06/14/21 at 0243, For 1 dose Contrast Given 06/14/2021 2:43 AM GREEN MARKETING ANALYST 15 mL heparin 5,000 unit/mL injection 5,000 Units 5,000 Units, subcutaneous, Every 8 hours scheduled, First dose on Sat06/13/21 at 1530, Indications: VTE Prophylaxis, On hold since Sat07/03/2021 at 1505 until manually unheldIndications:VTE Prophylaxis Given 07/03/2021 1:26 PM CDT 5,000 Units Left Lower Abdomen Given 07/03/2021 5:40 AM CDT 5,000 Units L eft Lower Abdomen Given 07/02/2021 9:15 PM CDT 5,000 Units L eft Lower Abdomen heparin 5,000 unit/mL injection 5,000 Units 5,000 Units, subcutaneous, Once, On Sat06/19/21 at 2100, For 1 dose, Indications: Deep Vein Thrombosis PreventionIndications:Deep Vein Thrombosis Prevention Given 06/19/2021 8:00 PM CDT 5,000 Units Left Lower Abdomen heparin 5,000 unit/mL injection 5,000 Units 5,000 Units, subcutaneous, Every 8 hours scheduled, First dose on Sat07/04/21 at 2200, Indications: Deep Vein Thrombosis PreventionIndications:Deep Vein Thrombosis Prevention Given 07/07/2021 2:16 PM CDT 5,000 Units Left Lower Abdomen Given 07/07/2021 6:47 AM CDT 5,000 Units L eft Upper Abdomen Given 07/06/2021 8:29 PM CDT 5,000 Units L eft Lower Abdomen ioversoL (OPTIRAY 350) syringe syringe 100 mL 100 mL, intravenous, Once in imaging, contrast, Starting on Sat06/17/21 at 2248, For 1 dose Contrast Given 06/17/2021 10:58 PM GREEN MARKETING ANALYST 95 mL labetaloL (NORMODYNE,TRANDATE) 5 mg/mL injection - ADS Override Pull Starting on Sat06/12/21 at 1122, For 1 dose, Created by cabinet override labetaloL (NORMODYNE,TRANDATE) injection 10 mg 10 mg, intravenous, at 60 mL/hr, Administer over 2 Minutes, Once, On Sat06/12/21 at 0500, For 1 dose Given 06/12/2021 4:35 AM GREEN MARKETING ANALYST 10 mg 60 mL/hr labetaloL (NORMODYNE,TRANDATE) injection 10 mg 10 mg, intravenous, at 60 mL/hr, Administer over 2 Minutes, Once, On Sat06/12/21 at 1200, For 1 dose Given 06/12/2021 11:25 AM GREEN MARKETING ANALYST 10 mg 60 mL/hr labetaloL (NORMODYNE,TRANDATE) injection 10 mg 10 mg, intravenous, at 60 mL/hr, Administer over 2 Minutes, Every 30 min PRN, high blood pressure, Give for SBP > 160 or MAP > 110 mmHg (Use hydralazine to treat hypertension if HR is < 70 bpm, use labetalol to treat hypertension if HR is > 70 bpm), Starting on Sat06/12/21 at 1338 Given 06/14/2021 9:15 PM GREEN MARKETING ANALYST 10 mg 60 mL/hr Given 06/14/2021 8:11 PM GREEN MARKETING ANALYST 10 mg 60 mL/hr Given 06/12/2021 6:19 PM GREEN MARKETING ANALYST 10 mg 60 mL/hr Lactated Ringer's (LR) bolus 1,000 mL 1,000 mL, intravenous, at 250 mL/hr, Administer over 4 Hours, Once, On Sat07/05/21 at 0215, For 1 dose New Bag 07/05/2021 2:48 AM CDT 1,000 mL 250 mL/hr Lactated Ringer's (LR) bolus 500 mL 500 mL, intravenous, at 500 mL/hr, Administer over 1 Hours, Once, On Sat06/12/21 at 1745, For 1 dose New Bag 06/12/2021 5:30 PM GREEN MARKETING ANALYST 500 mL 500 mL/hr Lactated Ringer's (LR) bolus 500 mL 500 mL, intravenous, at 500 mL/hr, Administer over 1 Hours, Once, On Sat06/13/21 at 1300, For 1 dose New Bag 06/13/2021 12:38 PM GREEN MARKETING ANALYST 500 mL 500 mL/hr levalbuterol (XOPENEX) 1.25 mg/3 mL nebulizer solution 1.25 mg 1.25 mg, nebulization, Every 6 hours (customer response representative), First dose (after last modification) on Sat06/12/21 at 2300, I /authorizing provider attest that the patient meets the approved [facility] Use Criteria: Yes Given 06/13/2021 11:20 AM GREEN MARKETING ANALYST 1.25 mg Given 06/13/2021 5:27 AM GREEN MARKETING ANALYST 1.25 mg Given 06/12/2021 11:57 PM GREEN MARKETING ANALYST 1.25 mg levalbuterol (XOPENEX) 1.25 mg/3 mL nebulizer solution 1.25 mg 1.25 mg, nebulization, Every 6 hours PRN (customer response representative), wheezing, shortness of breath, Starting on Sat06/13/21 at 1245, I /authorizing provider attest that the patient meets the approved [facility] Use Criteria: Yes Given 06/14/2021 9:14 AM GREEN MARKETING ANALYST 1.25 mg levETIRAcetam (KEPPRA) 500 mg/100 mL in sodium chloride (premix) 500 mg 500 mg, intravenous, Administer over 15 Minutes, Every 12 hours scheduled, First dose on Sat06/12/21 at 0115, For 14 doses, Room temperature only New Bag 06/13/2021 12:17 AM GREEN MARKETING ANALYST 500 mg New Bag 06/12/2021 2:07 PM GREEN MARKETING ANALYST 500 mg New Bag 06/12/2021 12:49 AM GREEN MARKETING ANALYST 500 mg levETIRAcetam (KEPPRA) tablet 500 mg 500 mg, feeding tube, 2 times daily, First dose on Sat06/13/21 at 1345, For 6 days Given 06/19/2021 2:56 AM CDT 500 m g Given 06/18/2021 1:50 PM CDT 500 mg Given 06/18/2021 12:35 AM GREEN MARKETING ANALYST 500 mg LORazepam (ATIVAN) injection 2 mg 2 mg, intramuscular, Every 1 hour PRN, other, Score greater than 18 on Alcohol Withdrawl Assessment, Starting on Sat06/11/21 at 2344, For 6 days, Administer IM if unable to provide IV Push.HOLD for any status indicating over sedation including the following: drifts off to sleep during conversation, minimal or no response to verbal or physical stimulation, or respiratory rate less than 10 breaths per minute. For IV administration, dilute with equal volume of 0.9% sodium chloride to a final concentration of 1 mg/mL. Do not exceed a rate of 2 mg/minute, Indications: Alcohol Withdrawal Assessment Scale score, On hold since Sat06/12/2021 at 0959 until manually unheldIndications:Alcohol Withdrawal Assessment Scale score Given 06/12/2021 2:40 AM GREEN MARKETING ANALYST 2 mg Other (Comment) magnesium oxide (MAG-OX) tablet 800 mg 800 mg, oral, 2 times daily, First dose on Sat07/06/21 at 0900, For 2 doses, 1 tablet = Magnesium oxide 400 mg = 241.3 mg elemental magnesium, Indications: hypomagnesemiaIndications:hypoma gnesemia Given 07/06/2021 8:29 PM CDT 800 mg Given 07/06/2021 9:56 AM CDT 800 mg magnesium sulfate 2 g/50 mL in water (premix) 2 g 2 g, intravenous, Administer over 60 Minutes, Once, On Sat06/14/21 at 1030, For 1 dose, Indications: hypomagnesemiaIndications:hypomagnesemia 06/14/2021 10:14 AM GREEN MARKETING ANALYST 2 g magnesium sulfate 2 g/50 mL in water (premix) 2 g 2 g, intravenous, Administer over 60 Minutes, Once, On Sat06/19/21 at 0130, For 1 dose, Indications: hypomagnesemiaIndications:hypomagnesemia 06/19/2021 2:19 AM CDT 2 g magnesium sulfate 2 g/50 mL in water (premix) 2 g 2 g, intravenous, Administer over 60 Minutes, Once, On Sat06/27/21 at 0200, For 1 dose, Indications: hypomagnesemiaIndications:hypomagnesemia 06/27/2021 3:31 AM CDT 2 g magnesium sulfate 4 g/100 mL in water (premix) - ADS Override Pull Starting on Sat06/12/21 at 1123, For 1 dose, Created by cabinet override magnesium sulfate 4 g/100 mL in water (premix) 4 g 4 g, intravenous, Administer over 90 Minutes, Once, On Sat06/12/21 at 1200, For 1 dose 06/12/2021 12:03 PM GREEN MARKETING ANALYST 4 g magnesium sulfate 4 g/100 mL in water (premix) 4 g 4 g, intravenous, Administer over 90 Minutes, Once, On Sat06/17/21 at 0000, For 1 dose 06/16/2021 11:40 PM GREEN MARKETING ANALYST 4 g magnesium sulfate 4 g/100 mL in water (premix) 4 g 4 g, intravenous, Administer over 90 Minutes, Once, On Sat06/21/21 at 1045, For 1 dose New Bag 06/21/2021 11:01 AM CDT 4 g metoprolol (LOPRESSOR) injection 5 mg 5 mg, intravenous, Administer over 1 Minutes, Every 6 hours scheduled, First dose on Sat06/12/21 at 0115 Given 06/12/2021 12:02 PM GREEN MARKETING ANALYST 5 mg Given 06/12/2021 6:01 AM GREEN MARKETING ANALYST 5 mg Given 06/12/2021 1:46 AM GREEN MARKETING ANALYST 5 mg metoprolol (LOPRESSOR) injection 5 mg 5 mg, intravenous, Administer over 1 Minutes, Once, On Sat06/12/21 at 1530, For 1 dose Given 06/12/2021 2:58 PM GREEN MARKETING ANALYST 5 mg metoprolol (LOPRESSOR) injection 5 mg 5 mg, intravenous, Administer over 1 Minutes, Once, On Sat07/04/21 at 2030, For 1 dose Given 07/04/2021 8:26 PM CDT 5 m g metoprolol (LOPRESSOR) tablet 100 mg 100 mg, feeding tube, 2 times daily, First dose (after last modification) on Sat07/05/21 at 0900 Given 07/07/2021 9:50 AM CDT 100 mg Given 07/06/2021 8:29 PM CDT 100 mg Given 07/06/2021 9:56 AM CDT 100 mg metoprolol tartrate (LOPRESSOR) immediate release tablet 12.5 mg 12.5 mg, feeding tube, Every 6 hours, First dose (after last modification) on Zoe 06/15/21 at 1415 Given 06/16/2021 9:15 AM GREEN MARKETING ANALYST 12.5 mg Given 06/16/2021 1:21 AM GREEN MARKETING ANALYST 12.5 mg Given 06/15/2021 8:12 PM GREEN MARKETING ANALYST 12.5 mg metoprolol tartrate (LOPRESSOR) immediate release tablet 25 mg 25 mg, feeding tube, Every 6 hours, First dose on Sat06/12/21 at 1415 Given 06/12/2021 2:08 PM GREEN MARKETING ANALYST 25 mg metoprolol tartrate (LOPRESSOR) immediate release tablet 25 mg 25 mg, feeding tube, Once, On Sat06/12/21 at 1530, For 1 dose Given 06/12/2021 2:58 PM GREEN MARKETING ANALYST 25 mg metoprolol tartrate (LOPRESSOR) immediate release tablet 25 mg 25 mg, feeding tube, Every 6 hours, First dose (after last modification) on Sat06/16/21 at 1415 Given 06/22/2021 9:00 AM CDT 25 mg Given 06/22/2021 2:53 AM CDT 25 mg Given 06/21/2021 8:19 PM CDT 25 mg metoprolol tartrate (LOPRESSOR) immediate release tablet 50 mg 50 mg, feeding tube, Every 6 hours, First dose (after last modification) on Sat06/12/21 at 2015 Given 06/15/2021 7:39 AM GREEN MARKETING ANALYST 50 mg Given 06/14/2021 7:46 PM GREEN MARKETING ANALYST 50 mg Given 06/14/2021 1:20 PM GREEN MARKETING ANALYST 50 mg metoprolol tartrate (LOPRESSOR) immediate release tablet 50 mg 50 mg, feeding tube, 2 times daily, First dose (after last modification) on Sat06/22/21 at 2100 Given 07/04/2021 7:58 PM CDT 50 mg Given 07/03/2021 10:38 PM CDT 50 mg Given 07/03/2021 10:52 AM CDT 50 mg metroNIDAZOLE (FLAGYL) tablet 500 mg 500 mg, feeding tube, Every 8 hours scheduled, First dose (after last modification) on Sat06/20/21 at 1515, Indications: Skin/Soft Tissue InfectionIndications:Skin/Soft Tissue Infection Given 06/28/2021 1:38 PM CDT 500 mg Given 06/28/2021 6:05 AM CDT 500 mg Given 06/27/2021 9:22 PM CDT 500 mg metroNIDAZOLE (FLAGYL) tablet 500 mg 500 mg, feeding tube, Every 8 hours scheduled, First dose (after last modification) on Sat06/28/21 at 2200, For 4 doses, Indications: Skin/Soft Tissue InfectionIndications:Skin/Soft Tissue Infection Given 06/29/2021 9:13 PM CDT 500 mg Given 06/29/2021 3:02 PM CDT 500 mg Given 06/29/2021 5:27 AM CDT 500 mg miconazole (SECURA THICK) 2 % cream topical, 2 times daily, First dose on Sat06/27/21 at 2100, Apply to affected area: perineum, other Given 07/07/2021 10:0 5 AM CDT Given 07/06/2021 8:27 PM CDT Given 07/05/2021 7:59 AM CDT gjxzydep-esl-isepzoe gluconate (CENTRUM) 0.6 mg iron/mL oral liquid 15 mL 15 mL, feeding tube, Daily, First dose on Sat06/12/21 at 1245 Given 07/07/2021 9:49 AM CDT 15 mL Given 07/06/2021 9:56 AM CDT 15 mL Given 07/05/2021 7:55 AM CDT 15 mL pantoprazole (PROTONIX) 4 mg/mL injection 40 mg 40 mg, intravenous, Administer over 2 Minutes, Every 24 hours scheduled, First dose on Sat06/12/21 at 1415, For IV Push administration for adults- 40 mg vial: add 10 mL of sodium chloride 0.9% to achieve a final concentration of 4 mg/mL, Indications: Treatment of Non-Bleeding Gastric DisorderIndications:Treatment of Non-Bleeding Gastric Disorder Given 06/19/2021 8:27 AM CDT 40 mg Given 06/18/2021 8:08 AM CDT 40 mg Given 06/17/2021 8:19 AM GREEN MARKETING ANALYST 40 mg pantoprazole (PROTONIX) 4 mg/mL injection 40 mg 40 mg, intravenous, Administer over 2 Minutes, 2 times daily, First dose (after last modification) on Sat06/19/21 at 2100, For IV Push administration for adults- 40 mg vial: add 10 mL of sodium chloride 0.9% to achieve a final concentration of 4 mg/mL, Indications: Treatment of Non-Bleeding Gastric DisorderIndications:Treatment of Non-Bleeding Gastric Disorder Given 06/20/2021 8:21 AM CDT 40 mg Given 06/19/2021 8:00 PM CDT 40 mg pantoprazole (PROTONIX) 4 mg/mL injection 40 mg 40 mg, intravenous, Administer over 2 Minutes, Daily, First dose (after last modification) on Sat06/21/21 at 0900, For IV Push administration for adults- 40 mg vial: add 10 mL of sodium chloride 0.9% to achieve a final concentration of 4 mg/mL, Indications: Treatment of Non-Bleeding Gastric DisorderIndications:Treatment of Non-Bleeding Gastric Disorder Given 07/05/2021 7:54 AM CDT 40 mg Given 07/04/2021 8:05 AM CDT 40 mg Given 07/03/2021 10:51 AM CDT [address] (PROTONIX) extended release tablet 40 mg 40 mg, oral, Daily, First dose on Zoe 07/06/21 at 0900, Do not crush, chew, cut, dissolve, open or otherwise manipulate tablet/capsule., Indications: Treatment of Non-Bleeding Gastric DisorderIndications:Treat ment of Non-Bleeding Gastric Disorder Given 07/06/2021 9:57 AM CDT 40 mg perflutren protein-a (OPTISON) 0.22 mg/mL injection - ADS Override Pull Starting on Sat06/13/21 at 1606, For 1 dose, Created by cabinet override Contrast Given 06/13/2021 4:29 PM GREEN MARKETING ANALYST phenylephrine (CON-SYNEPHRINE) 1 mg/10 mL (100 mcg/mL) in sodium chloride 0.9% (premix) - ADS Override Pull Starting on [facility] 06/15/21 at 0219, For 1 dose, Created by cabinet override For IV push, administer over 30 seconds. Given 06/15/2021 2:37 AM GREEN MARKETING ANALYST 200 mcg phenylephrine in 0.9% sodium chloride (CON-SYNEPHRINE) 25,000 mcg/250 mL (100 mcg/mL) infusion (premix) solution - ADS Override Pull Starting on Zoe 06/15/21 at 0300, For 1 dose, Created by cabinet override Protect from light phenylephrine in 0.9% sodium chloride (CON-SYNEPHRINE) 25,000 mcg/250 mL (100 mcg/mL) infusion (premix) solution 0-4 mcg/kg/min ? 85.8 kg Dosing weight (0-205.92 mL/hr), 100 mcg/mL, intravenous, Titrated, Starting on Zoe 06/15/21 at 0345, Until Zoe 06/15/21 at 0733, Initial rate: 0.5 mcg/kg/min, Titrate: Up/Down, Titrate by: 0.1 mcg/kg/min, Every: 2 minutes, Goal: MAP, MAP Goal: 65-75 mmHg, Protect from light, Routine New Bag 06/15/2021 3:14 AM GREEN MARKETING ANALYST 0.6 mcg/kg/min 30.9 mL/hr Rate/Dose Change 06/15/2021 3:05 AM GREEN MARKETING ANALYST 0.5 mcg/kg/min 25. 7 mL/hr polyvinyl alcohol-povidone (REFRESH CLASSIC) 1.4-0.6 % ophthalmic solution 2 drop 2 drop, each eye, 4 times daily PRN, dry eyes, Starting on Tu06/13/21 at 0748 Given 06/13/2021 8:21 AM GREEN MARKETING ANALYST 2 drops potassium chloride (KLOR-CON) packet 40 mEq 40 mEq, feeding tube, Once, On Sat06/12/21 at 1515, For 1 dose, Dissolve one packet in at least 120 mL of cold water or other beverage prior to administration. Given 06/12/2021 2:59 PM GREEN MARKETING ANALYST 40 mEq potassium chloride (KLOR-CON) packet 40 mEq 40 mEq, feeding tube, Once, On Sat06/14/21 at 1030, For 1 dose, Recommend to dilute each 15 mL with at least 6 ounces of water or juice prior to administration. Dissolve one packet in at least 120 mL of cold water or other beverage prior to administration., Indications: hypokalemiaIndications:hypokalemia Given 06/14/2021 10:14 AM GREEN MARKETING ANALYST 40 mEq potassium chloride (KLOR-CON) packet 40 mEq 40 mEq, feeding tube, Every 2 hours, First dose on 06/17/21 at 0000, For 2 doses, Total 80 mEq. Recommend to dilute each 15 mL with at least 6 ounces of water or juice prior to administration. Dissolve one packet in at least 120 mL of cold water or other beverage prior to administration., Indications: hypokalemiaIndications:hypokalemia Given 06/17/2021 2:14 AM GREEN MARKETING ANALYST 40 mEq Given 06/16/2021 11:40 PM GREEN MARKETING ANALYST 40 mEq potassium chloride (KLOR-CON) packet 40 mEq 40 mEq, feeding tube, Every 2 hours, First dose on 06/19/21 at 0200, For 2 doses, Total 80 mEq. Recommend to dilute each 15 mL with at least 6 ounces of water or juice prior to administration. Dissolve one packet in at least 120 mL of cold water or other beverage prior to administration., Indications: hypokalemiaIndications:hypokalemia Given 06/19/2021 4:48 AM CDT 40 mEq Given 06/19/2021 2:53 AM CDT 40 mEq potassium chloride (KLOR-CON) packet 40 mEq 40 mEq, feeding tube, Once, On Sat06/20/21 at 2315, For 1 dose, Recommend to dilute each 15 mL with at least 6 ounces of water or juice prior to administration. Dissolve one packet in at least 120 mL of cold water or other beverage prior to administration., Indications: hypokalemiaIndications:hypokalemia Given 06/21/2021 12:09 AM CDT 40 mEq potassium chloride 20 mEq/260 mL in sodium chloride 0.9% (premix) 20 mEq 20 mEq, intravenous, Administer over 2 Hours, Once, On 07/01/21 at 0345, For 1 dose, Indications: hypokalemiaIndications:hypokalemia New Bag 07/01/2021 4:01 AM CDT 20 mEq pravastatin (PRAVACHOL) tablet 40 mg 40 mg, feeding tube, Daily, First dose (after last modification) on Sat06/13/21 at 0900 Given 07/07/2021 9:49 AM CDT 40 mg Given 07/06/2021 9:56 AM CDT 40 mg Given 07/05/2021 7:54 AM CDT 40 mg ramelteon (ROZEREM) tablet 8 mg 8 mg, feeding tube, Nightly, First dose on Sat06/21/21 at 1800, Indications: Sleep-Onset InsomniaIndications:Sleep-Onset Insomnia Given 07/07/2021 5:51 PM CDT 8 m g Given 07/06/2021 6:49 PM CDT 8 mg Given 07/05/2021 5:47 PM CDT 8 mg senna 1.76 mg/mL syrup 8.8 mg 8.8 mg, feeding tube, 2 times daily, First dose on Sat06/11/21 at 2100, If medications administered per tube., Indications: constipationIndications:constipation Given 06/18/2021 8:08 AM CDT 8.8 mg Given 06/17/2021 8:47 PM GREEN MARKETING ANALYST 8.8 mg Given 06/17/2021 8:17 AM GREEN MARKETING ANALYST 8.8 mg senna 1.76 mg/mL syrup 8.8 mg 8.8 mg, feeding tube, 2 times daily, First dose on 3/21/22 at 0900 Given 07/07/2021 9:49 AM CDT 8.8 mg Given 07/06/2021 8:29 PM CDT 8.8 mg Given 07/06/2021 9:56 AM CDT 8.8 mg sodium chloride 0.9% flush 0.5-20 mL 0.5-20 mL, intra-catheter, Every 8 hours scheduled, First dose on Sat06/11/21 at 2200, Flush volume based on line type and size. , Indications: FlushingIndications:Flushing Given 06/27/2021 10:00 PM CDT 1 0 mL Given 06/27/2021 5:43 PM CDT 10 mL Given 06/27/2021 5:49 AM CDT 10 mL sodium chloride 0.9% flush 0.5-20 mL 0.5-20 mL, intra-catheter, Every 8 hours scheduled, First dose on Sat06/11/21 at 2200, Flush volume based on line type and size. , Indications: FlushingIndications:Flushing Given 07/07/2021 2:15 PM CDT 10 mL Given 07/07/2021 6:49 AM CDT 10 mL Given 07/06/2021 8:34 PM CDT 10 mL sodium chloride 0.9% flush 0.5-20 mL 0.5-20 mL, intra-catheter, As needed, line care, Starting on Sat06/11/21 at 1913, Flush volume based on line type and size. Flush before and after each use. , Indications: FlushingIndications:Flushin g Given 06/25/2021 7:45 AM CDT 10 mL sodium chloride 0.9% infusion 75 mL/hr, intravenous, Continuous, Starting on Sat06/11/21 at 2000, TFR 75 ml/hr Rate/Dose Change 06/14/2021 7:17 AM GREEN MARKETING ANALYST 15 mL/hr 15 mL/hr Rate/Dose Change 06/14/2021 1:16 AM GREEN MARKETING ANALYST 35 mL/hr 35 mL/h r Rate/Dose Change 06/13/2021 6:30 PM GREEN MARKETING ANALYST 75 mL/hr 75 mL/h r sodium chloride 0.9% infusion 75 mL/hr, intravenous, Continuous, Starting on Sat06/28/21 at 0800, For 26 hours New Bag 06/28/2021 9:33 PM CDT 75 mL/hr 75 mL/hr New Bag 06/28/2021 7:54 AM CDT 75 mL/hr 75 mL/hr sodium chloride 0.9% solution - ADS Override Pull Starting on Sat06/25/21 at 0703, For 1 dose, Created by cabinet override sodium chloride 0.9% solution - ADS Override Pull Starting on Sat06/30/21 at 0859, For 1 dose, Created by cabinet override Given 06/30/2021 9:27 AM CDT sulfamethoxazole-trimethoprim (BACTRIM) 40-8 mg/mL (dosed on TMP component) oral suspension 320 mg of trimethoprim 320 mg of trimethoprim, feeding tube, 2 times daily, First dose on Sat06/20/21 at 1200, Indications: Skin/Soft Tissue InfectionIndications:Skin/Soft Tissue Infection Given 06/28/2021 8:00 AM CDT 320 mg of trimethoprim Given 06/27/2021 9:23 PM CDT 320 mg of trimethoprim Given 06/27/2021 8:02 AM CDT 320 mg of trimethoprim sulfamethoxazole-trimethoprim (BACTRIM) 40-8 mg/mL (dosed on TMP component) oral suspension 320 mg of trimethoprim 320 mg of trimethoprim, feeding tube, 2 times daily, First dose (after last modification) on Sat06/28/21 at 2100, For 3 doses, Indications: Skin/Soft Tissue InfectionIndications:Skin/Soft Tissue Infection Given 06/29/2021 9:45 AM CDT 320 mg of trimethoprim Given 06/28/2021 9:26 PM CDT 320 mg of trimethoprim terazosin (HYTRIN) capsule 10 mg 10 mg, feeding tube, Nightly, First dose on Sat06/12/21 at 2100 Given 06/13/2021 8:18 PM GREEN MARKETING ANALYST 10 mg Given 06/12/2021 8:10 PM GREEN MARKETING ANALYST 10 mg terazosin (HYTRIN) capsule 10 mg 10 mg, feeding tube, Nightly, First dose (after last modification) on Sat06/23/21 at 2100 Given 07/06/2021 8:28 PM CDT 10 mg Given 07/05/2021 9:29 PM CDT 10 mg Given 07/04/2021 7:58 PM CDT 10 mg terazosin (HYTRIN) capsule 20 mg 20 mg, feeding tube, Nightly, First dose (after last modification) on Sat06/14/21 at 2100 Given 06/21/2021 8:18 PM CDT 20 mg Given 06/20/2021 8:03 PM CDT 20 mg Given 06/19/2021 8:01 PM CDT 20 mg terazosin (HYTRIN) capsule 20 mg 20 mg, feeding tube, Nightly, First dose (after last reorder) on Zoe 06/22/21 at 2100 Given 06/22/2021 8:22 PM CDT 20 mg thiamine (VITAMIN B-1) 250 mg in sodium chloride 0.9% 100 mL IVPB 250 mg, intravenous, at 205 mL/hr, Administer over 30 Minutes, Every 24 hours scheduled, First dose on Sat06/14/21 at 1630, For 5 days, Indications: Treatment of known or suspected Wernicke's EncephalopathyIndications:Treatment of known or suspected Wernicke's Encephalopathy New Bag 06/18/2021 8:09 AM CDT 250 mg 205 mL/hr New Bag 06/17/2021 9:11 AM GREEN MARKETING ANALYST 250 mg 205 mL/hr New Bag 06/16/2021 9:12 AM GREEN MARKETING ANALYST 250 mg 205 mL/hr thiamine (VITAMIN B-1) 500 mg in sodium chloride 0.9% 100 mL IVPB 500 mg, intravenous, at 210 mL/hr, Administer over 30 Minutes, Every 8 hours, First dose on Sat06/12/21 at 1630, For 2 days, Indications: Treatment of known or suspected Wernicke's EncephalopathyIndications:Treatment of known or suspected Wernicke's Encephalopathy New Bag 06/14/2021 8:37 AM GREEN MARKETING ANALYST 500 mg 210 mL/hr New Bag 06/14/2021 12:07 AM GREEN MARKETING ANALYST 500 mg 210 mL/hr New Bag 06/13/2021 3:48 PM GREEN MARKETING ANALYST 500 mg 210 mL/hr thiamine (VITAMIN B1) tablet 100 mg 100 mg, feeding tube, Daily, First dose on Sat06/12/21 at 1415 Given 06/12/2021 2:08 PM GREEN MARKETING ANALYST 100 mg thiamine (VITAMIN B1) tablet 100 mg 100 mg, feeding tube, Daily, First dose on Sat06/19/21 at 0900 Given 06/20/2021 8:21 AM CDT 100 mg Given 06/19/2021 8:28 AM CDT 100 mg thiamine (VITAMIN B1) tablet 100 mg 100 mg, feeding tube, Daily, First dose on Zoe 06/22/21 at 1145 Given 07/07/2021 9:50 AM CDT 100 mg Given 07/06/2021 9:56 AM CDT 100 mg Given 07/05/2021 7:54 AM CDT 100 mg traZODone (DESYREL) tablet 100 mg 100 mg, feeding tube, Nightly, First dose (after last modification) on Sat06/23/21 at 2100 Given 07/06/2021 8:29 PM CDT 100 mg Given 07/05/2021 9:29 PM CDT 100 mg Given 07/04/2021 7:58 PM CDT 100 mg traZODone (DESYREL) tablet 50 mg 50 mg, feeding tube, Nightly, First dose on Sat06/21/21 at 2100 Given 06/22/2021 8:23 PM CDT 50 mg Given 06/21/2021 8:19 PM CDT 50 mg documented in this encounter Discontinued Medications Medication Sig Discontinue Reason Start Date End Da te ondansetron ODT (ZOFRAN-ODT) 4 mg disintegrating tablet Take 1 tablet (4 mg total) by mouth every 8 (eight) hours as needed for nausea Therapy completed 07/15/2020 06/12/2021 acetaminophen 500 mg capsuleIndications:Pain Take 2 capsules (1,000 mg total) by mouth every 6 (six) hours Therapy completed 07/15/2020 06/12/2021 levalbuterol (XOPENEX) 1.25 mg/3 mL nebulizer solution Take 1.25 mg by nebulization as needed for shortness of breath Therapy completed 06/12/2021 magnesium oxide (MAG-OX) 400 mg (241.3 mg elemental magnesium) tabletIndications:hypom agnesemia Take 400 mg by mouth every morning Therapy completed 06/12/2021 ibuprofen (ibuprofen) 200 mg tab/capIndications:Pain Take 800 mg by mouth as needed for pain Therapy completed 06/12/2021 traMADoL (ULTRAM) 50 mg tabletIndications:Pain Take 1 tablet (50 mg total) by mouth every 6 (six) hours as needed for pain Therapy completed 08/05/2020 06/12/2021 apixaban (ELIQUIS) 5 mg tabletIndications:atria l fibrillation Take 1 tablet (5 mg total) by mouth every 12 (twelve) hours Stop Taking at Discharge 02/22/2020 07/07/2021 lisinopriL (PRINIVIL,ZESTRIL) 40 mg tablet Take 1 tablet (40 mg total) by mouth daily Stop Taking at Discharge 02/23/2020 07/07/2021 furosemide (LASIX) 40 mg tablet Take 1 tablet (40 mg total) by mouth 2 (two) times a day Stop Taking at Discharge 02/22/2020 07/07/2021 documented as of this encounter Active and Recently Administered Medications Times are shown in CDT. Scheduled Medication Order 07/05/2021 07/06/2021 07/07/2021 docusate (COLACE) 10 mg/mL oral liquid 100 mg 100 mg, feeding tube, Daily, First dose on Sat06/26/21 at 0900, Indications: constipation 0755 (Given - Provider: [facility] Guajardo RN) 0956 (Given - Provider: Maame Cohen RN) 0949 (Given - Provider: Peggy Deng RN) famotidine (PEPCID) tablet 20 mg 20 mg, oral, Daily, First dose on Sat07/07/21 at 1045 1101 (Given - Provid er: Peggy Deng RN) fluticasone furoate-vilanteroL (BREO ELLIPTA) 100-25 mcg/dose inhaler 1 puff 1 puff, inhalation, Daily (customer response representative), First dose on 07/01/21 at 1430, Rinse mouth with water after use. Do not swallow. 1637 (Given - Provider: Zackary Barrett, SPECIAL AGENT SECRET SERVICE) 0950 (Given - Provider: Bryson Biggs, BUNNY) 0813 (Given - Provider: Clarence Coronado, BUNNY) heparin 5,000 unit/mL injection 5,000 Units 5,000 Units, subcutaneous, Every 8 hours scheduled, First dose on Sat07/04/21 at 2200, Indications: Deep Vein Thrombosis Prevention 0658 (Given - Provider: Hillary Root, GAURAV)1413 (Given - Provider: Mercy Guajardo, GAURAV)2131 (Given - Provider: Deann Ascencio RN) 0600 (Due)1306 (Given - Provider: Maame Cohen RN)2028 (Given - Provider: Deann Ascencio, GAURAV) 0647 (Given - Provider: Deann Ascencio RN)1416 (Given - Provider: Peggy Deng, GAURAV) Lactated Ringer's (LR) bolus 1,000 mL (COMPLETED) 1,000 mL, intravenous, at 250 mL/hr, Administer over 4 Hours, Once, On Sat07/05/21 at 0215, For 1 dose 0248 (New Bag - Provider: Hillary Root RN) magnesium oxide (MAG-OX) tablet 800 mg (COMPLETED) 800 mg, oral, 2 times daily, First dose on Sat07/06/21 at 0900, For 2 doses, 1 tablet = Magnesium oxide 400 mg = 241.3 mg elemental magnesium, Indications: hypomagnesemia 0956 (Given - Provider: Maame Cohen RN)2028 (Given - Provider: Deann Ascencio RN) metoprolol (LOPRESSOR) tablet 100 mg 100 mg, feeding tube, 2 times daily, First dose (after last modification) on Sat07/05/21 at 0900 0754 (Given - Provider: Mercy Guajardo RN)212 (Given - Provider: Deann Ascencio RN) 0956 (Given - Provider: Maame Cohen RN)2028 (Given - Provider: Deann Ascencio RN) 0950 (Given - Provider: Peggy Deng, GAURAV)2099 (Due) miconazole (SECURA THICK) 2 % cream topical, 2 times daily, First dose on Sat06/27/21 at 2100, Apply to affected area: perineum, other 0759 (Given - Provider: Mercy Guajardo RN)2100 (Due - Provider: Automatic Transfer Provider) 0900 (Due - Provider: Automatic Transfer Provider)2026 (Given - Provider: Deann Ascencio RN) 1005 (Given - Provider: Peggy Deng, GAURAV)2100 (Due - Provider: Automatic Transfer Provider) nvzleikp-ltb-hifluwm gluconate (CENTRUM) 0.6 mg iron/mL oral liquid 15 mL 15 mL, feeding tube, Daily, First dose on Sat06/12/21 at 1245 0755 (Given - Provider: Mercy Guajardo RN) 0956 (Given - Provider: Maame Cohen RN) 0949 (Given - Provider: Peggy Deng, GAURAV) pantoprazole (PROTONIX) 4 mg/mL injection 40 mg (CANCELED) 40 mg, intravenous, Administer over 2 Minutes, Daily, First dose (after last modification) on Sat06/21/21 at 0900, For IV Push administration for adults- 40 mg vial: add 10 mL of sodium chloride 0.9% to achieve a final concentration of 4 mg/mL, Indications: Treatment of Non-Bleeding Gastric Disorder 0754 (Given - Provider: Mercy Guajardo RN) pantoprazole DR (PROTONIX) extended release tablet 40 mg (CANCELED) 40 mg, oral, Daily, First dose on Sat07/06/21 at 0900, Do not crush, chew, cut, dissolve, open or otherwise manipulate tablet/capsule., Indications: Treatment of Non-Bleeding Gastric Disorder 0957 (Given - Provider: Maame Cohen RN) 1033 (Not Given - Provider: Jenn Kendrick RN - Reason: Contraindicated - Comment: unable to swallow) pravastatin (PRAVACHOL) tablet 40 mg 40 mg, feeding tube, Daily, First dose (after last modification) on Sat06/13/21 at 0900 0754 (Given - Provider: Mercy Guajardo RN) 0956 (Given - Provider: Maame Cohen RN) 0949 (Given - Provider: Peggy Deng, GAURAV) ramelteon (ROZEREM) tablet 8 mg 8 mg, feeding tube, Nightly, First dose on Sat06/21/21 at 1800, Indications: Sleep-Onset Insomnia 1747 (Given - Provider: Mercy Guajardo, GAURAV) 1849 (Given - Provider: Cecilia Brewster RN) 1751 (Given - Provider: Trinity Wu RN) senna 1.76 mg/mL syrup 8.8 mg 8.8 mg, feeding tube, 2 times daily, First dose on Sat06/26/21 at 0900 0755 (Given - Provider: Mercy Guajardo RN)2248 (Given - Provider: Deann Ascencio RN) 0956 (Given - Provider: Maame Cohen RN)2028 (Given - Provider: Deann Ascencio RN) 0949 (Given - Provider: Peggy Deng, GAURAV)2099 (Due - Provider: Automatic Transfer Provider) sodium chloride 0.9% flush 0.5-20 mL 0.5-20 mL, intra-catheter, Every 8 hours scheduled, First dose on Sat06/11/21 at 2200, Flush volume based on line type and size. , Indications: Flushing 0659 (Given - Provider: Hillary Root RN)1400 (Given - Provider: Mercy Guajardo RN)2132 (Given - Provider: Deann Ascencio RN) 0957 (Canceled Entry - Provider: Maame Cohen RN)1344 (Canceled Entry - Provider: Maame Cohen RN)203 (Given - Provider: Deann Ascencio RN) 0649 (Given - Provider: Deann Ascencio RN)1415 (Given - Provider: Peggy Deng, GAURAV) terazosin (HYTRIN) capsule 10 mg 10 mg, feeding tube, Nightly, First dose (after last modification) on Sat06/23/21 at 2100 2128 (Given - Provider: Deann Ascencio RN) 2027 (Given - Provider: Deann Ascencio RN) 2099 (Due - Provider: Automatic Transfer Provider) thiamine (VITAMIN B1) tablet 100 mg 100 mg, feeding tube, Daily, First dose on Zoe 06/22/21 at 1145 0754 (Given - Provider: Mercy Guajardo, GAURAV) 0956 (Given - Provider: Maame Cohen RN) 0950 (Given - Provider: Peggy Deng, GAURAV) traZODone (DESYREL) tablet 100 mg 100 mg, feeding tube, Nightly, First dose (after last modification) on Sat06/23/21 at 2100 212 (Given - Provider: Deann Ascencio RN) 2028 (Given - Provider: Deann Ascencio RN) 2099 (Due - Provider: Automatic Transfer Provider) PRN Medication Order 07/05/2021 07/06/2021 07/07/2021 acetaminophen (TYLENOL) tablet 650 mg 650 mg, feeding tube, Every 4 hours PRN, fever, 1st line for pain, temperature greater than 38.5 C, Starting on 06/12/21 at 1550 2129 (Given - Provider: Deann Ascencio, GAURAV) 1849 (Given - Provider: Cecilia Brewster RN) albuterol 2.5 mg/0.5 mL nebulizer solution 1.25 mg 1.25 mg, nebulization, Every 6 hours PRN (customer response representative), wheezing, Starting on Zoe 06/22/21 at 1113 barium sulfate (VARIBAR NECTAR) 40 % (w/v) nectar (COMPLETED) oral, Once in imaging, contrast, Starting on 07/05/21 at 1444, For 1 dose, Pre-Op/Floor, Shake well 1446 (Contrast Given - Provider: Lacey Law, RT) barium sulfate (VARIBAR PUDDING) 40 % (w/v), 30% (w/w) pudding (COMPLETED) oral, Once in imaging, contrast, Starting on 07/05/21 at 1444, For 1 dose, Pre-Op/Floor 1444 (Contrast Given - Provider: Lacey Law, RT) barium sulfate (VARIBAR THIN LIQUID) 81 % (w/w) thin liquid (COMPLETED) oral, Once in imaging, contrast, Starting on Sat07/05/21 at 1442, For 1 dose, Pre-Op/Floor 1447 (Contrast Given - Provider: Lacey Law, RT) sodium chloride 0.9% flush 0.5-20 mL 0.5-20 mL, intra-catheter, As needed, line care, Starting on Sat06/11/21 at 1913, Flush volume based on line type and size. Flush before and after each use. , Indications: Flushing documented in this encounter Orders Medications Ordered That Bimal ht Not Have Been Administered Count Last Ordered Date First Ordered Date clindamycin (CLEOCIN) 900 mg /50 mL in sodium chloride 0.9% (premix) piggyback 900 mg 1 07/04/2021 fentaNYL (SUBLIMAZE) preserv ative free injection 50 mcg 1 07/04/2021 HYDROmorphone (DILAUDID) injection 0.4 mg 1 07/04/2021 Lactated Ringer's (LR) infusion 1 magnesium oxide (MAG-OX) tablet 400 mg 1 naloxone (NARCAN) 0.4 mg/mL injection 0.04-0.4 mg 1 07/04/2021 sodium chloride 0.9% flush 0.5-20 mL 2 06/0706/11/2021 heparin 5,000 unit/mL inject ion 5,000 Units 1 07/03/2021 QUEtiapine (SEROquel) tablet 12.5 mg 1 06/07 albuterol 2.5 mg/0.5 mL nebu lizer solution 1.25 mg 2 06/22/2021 metroNIDAZOLE (FLAGYL) tablet 500 mg 1 06/06 perflutren protein-a (OPTISO N) 0.22 mg/mL injection - ADS Override Pull 1 06/20/2021 QUEtiapine (SEROquel) tablet 25 mg 1 2021 magnesium sulfate 2 g/50 mL in water (premix) 2 g 1 06/16/2021 metoprolol tartrate immediat e release capsule 12.5 mg 1 06/16/2021 chlorhexidine (PERIDEX) 0.12 % solution 15 mL 1 06/15/2021 fentaNYL (SUBLIMAZE) 50 mcg/ mL preservative free injection - ADS Override Pull 1 06/15/2021 rocuronium (ZEMURON) 10 mg/m L injection - ADS Override Pull 1 06/15/2021 sodium chloride 0.9% 0.9% in fusion - ADS Override Pull 2 06/15/2021 sodium chloride 5% (HYPERTON IC) 5 % solution - ADS Override Pull 1 06/15/2021 amiodarone (NEXTERONE) 150 m g/100 mL (1.5 mg/mL) in dextrose (premix) - ADS Override Pull 1 06/13/2021 amiodarone in dextrose (NEXT ERONE) 360 mg/200 mL (1.8 mg/mL) infusion (premix) 1 06/13/2021 artificial saliva (MOUTH MARINA E) spray 1 application 1 06/12/2021 hydrALAZINE (APRESOLINE) injection 10 mg 1 06/12/2021 levalbuterol (XOPENEX) 1.25 mg/3 mL nebulizer solution 1.25 mg 1 06/12/2021 acetaminophen (TYLENOL) tablet 650 mg 1 09/2021 bisacodyL (DULCOLAX) suppository 10 mg 1 bisacodyl EC (DULCOLAX EC) tablet 10 mg 1 0 06/11/2021 docusate sodium (COLACE) capsule 100 mg 1 0 06/11/2021 famotidine (PEPCID) 20 mg/10 mL in sterile water (premix) 20 mg 1 06/11/2021 famotidine (PEPCID) tablet 20 mg 1 06/12/19 22 levETIRAcetam (KEPPRA) tablet 500 mg 1 09/2021 LORazepam (ATIVAN) injection 1 mg 2 022 LORazepam (ATIVAN) injection 2 mg 1 022 LORazepam (ATIVAN) tablet 1 mg 2 06/11/2021 metoprolol (LOPRESSOR) tablet 100 mg 1 09/2021 ondansetron (ZOFRAN) injection 4 mg 1 06/11 ondansetron ODT (ZOFRAN-ODT) disintegrating tablet 4 mg 1 06/11/2021 polyethylene glycol (MIRALAX) packet 17 g 1 06/11/2021 pravastatin (PRAVACHOL) tablet 40 mg 1 09/2021 senna (SENOKOT) tablet 1 tablet 1 2 Lab Orders Without Results Count Last Ordered D ate First Ordered Date POCT GLUCOSE DEVICE 16 07/07/2021 06/13/19 22 MAGNESIUM 4 07/03/2021 06/14/2021 PHOSPHORUS 1 06/14/2021 HEMOGLOBIN A1C 1 06/12/2021 LIPID PANEL 1 06/12/2021 TSH REFLEX TO FREE T4 1 06/12/2021 Imaging Orders Without Results Count Last Order ed Date First Ordered Date PEP THERAPY/AIRWAY CLEARANCE 14 07/04/2021 06/29/2021 CHEST PHYSIO THERAPY 22 07/03/202116/ 022 INEXSUFFLATOR COUGH MACHINE 31 06/28/2021 06/12/2021 Diet Count Last Ordered Date First Orde red Date ADULT DISCHARGE DIET 1 07/07/2021 Nursing Count Last Ordered Date First Orde red Date DISCHARGE ACTIVITY 2 07/07/2021 DISCHARGE CALL PROVIDER 6 07/07/2021 DISCHARGE DRESSING 4 07/07/2021 DISCHARGE INSTRUCTIONS 2 07/07/2021 FOLLOW UP WITH ESTABLISHED PROVIDER 3 07/07 NURSING COMMUNICATION 1 07/04/2021 APPLY CONDOM CATHETER 1 06/13/2021 NURSING SWALLOW ASSESSMENT 1 06/12/2021 WEIGH PATIENT 2 06/12/2021 06/11/2021 Consult Count Last Ordered Date First Orde red Date IP CONSULT TO NEUROLOGY 1 07/03/2021 IP CONSULT TO NUTRITION SERVICES 2 07/01/19 22 06/13/2021 CONSULT TO PM&R PHYSICIAN 1 06/29/2021 CONSULT TO ORTHO-TRAUMA 1 06/18/2021 IP CONSULT TO UROLOGY 2 06/17/20212021 Transfer Count Last Ordered Date First Orde red Date TRANSFER PATIENT 2 06/28/2021 06/12/2021 CORE MEASURES Count Last Ordered Date First Ord ered Date REASON FOR NO VTE PROPHYLAXIS AT ADMISSION 1 07/04/2021 REASON FOR NO VTE PROPHYLAXI S - HOSPITAL ADMISSION - MECHANICAL 1 06/12/2021 REASON FOR NO VTE PROPHYLAXI S - HOSPITAL ADMISSION - MEDICATIONS 2 06/12/2021 06/11/2021 Case Request Count Last Ordered Date First Orde red Date CASE REQUEST OPERATING ROOM 1 07/03/2021 documented in this encounter Additional Health Concerns Infection Onset Date Last Indicated Resolved Time MDR gram neg/ESBL Comment:06/16/2021 IP Review - Pt with scrotal abscess, but is not actively draining (last documented draining on 06/14). Pt remains intubated so requires trach aspirate for isolation discontinuation. Provider notified. Amanda Walker RN 12/19/2019 12/19/2019 COVID: Suspected 06/12/2021 06/12/2021 06/12/2021 8:35 PM GREEN MARKETING ANALYST documented as of this encounter Care Teams Marine Engineer Relationship Specialty Start Date End Date Jean-Claude Salazar MD [address] [facility] [address] [place] [address] PCP - General Family Medicine 04/12/20 06/12/22 Jean-Claude Salazar MD [address] [facility] [address] [place] [address] Family Medicine 04/12/20 Yoanna Delvalle MD [address] [facility] [address] [place] [address] Orthopedic Surgery 07/07/21 Seth Kiser MD [address] [address] Consulting Physician Neurosurgery 07/07/21 documented as of this encounter
--- OUTSIDE RECORDS SUMMARY | 2024-04-08 10:38 | XMS_ITS | Encounter Summary ---
Author Organization [facility] Address [address] [place] [address] Phone Care Team Providers Care Bereavement Coordinator Name Role Phone Jean-Claude Crawford MD Primary Care Provider Jean-Claude Crawford MD Unavailable [phone] Encounter Details Date Type Department Care Team (Late st Contact Info) Description 06/29/2021 10:20 AM CDT Ancillary Procedure [facility] Vascular Lab IP [address] [facility] [address] [place] [id number] Social History Tobacco Use Types Packs/Day Years [...] Never 06/16/2021 How often do you attend hinduism or baptist serv ices? Never 06/16/2021 Do you belong to any clubs o r organizations such as hinduism groups, unions, fraternal or athletic groups, or school groups? No 06/16/2021 How often do you attend meet ings of the clubs or organizations you belong to? Never 06/16/2021 Are you , , di vorced, , never , or living with a partner? 06/16/2021 AUDIT-C Answer Date Recorded Q1: How often do you have a drink containing alcohol? 4 or more times a week 07/13/2020 Q2: How many drinks containi ng alcohol do you have on a typical day when you are drinking? 3 or 4 Q3: How often do you have si x or more drinks on one occasion? Less than monthly 07/13/2020 Overall Financial Resource Strain (CARDIA) Answe r [...] on file Legal Sex Male 9:10 PM BREAKER UP Gender Identity Not on file Sexual Orientation Not on file documented as of this encounter Plan of Treatment Not on file documented as of this encounter Procedures Procedure Name Priority Date/Time Associated Diagnosis Comments US CAROTIDS DUPLEX BILATERAL IP Routine 06/29/2021 10:45 AM CDT documented in this encounter Results * US Carotids Duplex Bilateral (06/29/2021 10:45 AM CDT) Anatomical Region Laterality Modality Vascular Bilateral Ultrasound 06/29/2021 10:2 3 AM CDT Narrative 06/29/2021 11:39 AM CDT [facility] - Department of Vascular Surgery, Vascular Laboratory [address] [place] [address] Carotid Duplex Ultrasound Report Patient Name: JANIA GUAJARDO : 1950 (71y 1m) Study Date: 06/29/2021 10:23:46 AM Gender: M Tech: Location: [id number] Ref.Provider: ELIZABETH KILNE Quality: Adequate Order Provider: ELIZABETH KLINE Procedures: Carotid Report: Carotid duplex examination of [...] ?47 ? cm/sec ? - Findings: Performing School Guard: uJdy Strange RVT. Rt Common Carotid Artery: The [...] alcohol alcohol use who was transferred to [facility] 06[facility]11 from [facility] after being found to [...] performed. Electronically Signed By: Saqib Forbes MD [facility] [phone] 2021-06-29 11:39:21 CDT CC: CC: Procedure Note Saqib Forbes MD - 06/29/2021 [facility] - Department of Vascular Surgery,Vascular Laboratory [address] [place] [id number] Carotid Duplex Ultrasound Report Patient Name: JANIA GUAJARDOPatient ID: [id number] : 1950 (71y 1m)Study Date: 06/29/2021 10:23:46 AM Gender: MAccession #: [id number] Tech: BLLocation: [id number] Ref.Provider: Ryder KLINEality: Adequate Order Provider: Xiomara KLINE #: [id number] Procedures: Carotid Report: Carotid duplex examination of [...] LT VERT PSV 47cm/sec - Findings: Performing School Guard: Judy Strange RVT. Rt Common Carotid Artery: [...] alcohol alcohol use who was transferred to [facility] from [facility] after being found to have trace traumatic [...] performed. Electronically Signed By: Saqib Forbes MD [facility] [phone] 2021-06-29 11:39:21 CDT CC: CC: Elizabeth Kline DATA EXAMINATION CLERK IMG US PROCEDURES Final R esult documented in this encounter [...] documented as of this encounter Care Teams Bereavement Coordinator Relationship Specialty Start Date End Date Jean-Claude Crawford MD [address] [place] [id number] PCP - General Family Medicine 04/12/20 06/12/22 Jean-Claude Crawford MD [address] [facility] [address] [place] [address] Family Medicine 04/12/20 documented as of this encounter
--- OUTSIDE RECORDS SUMMARY | 2024-04-08 10:38 | XMS_ITS | Encounter Summary ---
Author Organization [facility] Address [address] [place] [address] Care Team Providers Care Field Sales Agent Name Role Phone Jean-Claude Crawford MD Primary Care Provider Jean-Claude Crawford MD Unavailable [phone] Reason for Visit * Reason Onset Date Comments Surgical Clearance 07/11/2020 Encounter Details Date Type Department Care Team (Late st Contact Info) Description 07/11/2020 Telephone [facility] Cardiology [address] [place] [address] Abiodun Novak MD [address] [facility] [address] [place] [address] Surgical Clearance Social History Tobacco Use Types Packs/Day Years Used Date Smoking Tobacco: Every Day Cigarettes 1 59 Started: 1964 Smokeless Tobacco: Never Alcohol Use Standard Drinks/Week Comments Yes 0 (1 standard drink = 0.6 oz pur e alcohol) limited AUDIT-C Answer Date Recorded Q1: How often do you have a drink containing alcohol? 4 or more times a week 07/11/2020 Q2: How many drinks containi ng alcohol do you have on a typical day when you are drinking? 1 or 2 Q3: How often do you have si x or more drinks on one occasion? Never 07/11/2020 Sex and Gender Information Value Date Recorded Sex Assigned at Not on file Legal Sex Male 9:10 PM DIRECTOR ZONE Gender Identity Not on file Sexual Orientation Not on file documented as of this encounter Miscellaneous Notes * Telephone Encounter - Felicity Greene - 07/11/2020 12:12 PM CDT Called [facility]-pap, spoke with Delisa. Relayed message from physician. Verbally understood and will pass message along to Abelino. * Telephone Encounter - Abiodun Novak MD - 07/11/2020 12:09 PM CDT Okay for surgery, no need to do testing prior. * Telephone Encounter - Felicity Greene - 07/11/2020 11:39 AM CDT Abelino with CPAP at [facility] calling - patient is scheduled for Cholecystectomy 07/13/2020 . CPAP seeing that patient is scheduled for future Echo, nm stress and holter in August and they are wanting to know if patient should have these tests prior to his Cholecystectomy or if these tests are scheduled as just a part of the patient last office visit? Also they want to make sure patient is cleared for this from a cardiac standpoint? Please advise documented in this encounter Plan of Treatment [...] as of this encounter Care Teams Field Sales Agent Relationship Specialty Start Date End Date Jean-Claude Crawford MD [address] [place] [phone] PCP - General Family Medicine 04/12/20 06/12/22 Jean-Claude Crawford MD [address] [facility] [address] [place] [address] Family Medicine 04/12/20 documented as of this encounter
--- OUTSIDE RECORDS SUMMARY | 2024-04-08 10:38 | XMS_ITS | Encounter Summary ---
Author Organization [facility] Address [address] [place] [address] Care Team Providers Care Laborer Pipeline Name Role Phone Jean-Claude Crawford MD Primary Care Provider Encounter Details Date Type Department Care Team (Late st Contact Info) Description 03/11/2020 Telephone [facility] Radiology [address] [place] [address] Guillermina Pitts, GAURAV Social History Tobacco Use Types Packs/Day Years Used Date Smoking Tobacco: Every Day Cigarettes Smokeless Tobacco: Never Alcohol Use Standard Drinks/Week Comments Yes 0 (1 standard drink = 0.6 oz pur e alcohol) limited Sex and Gender Information Value Date Recorded Sex Assigned at Not on file 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 Gilbert: Probably best to have him follow up with Dr Gomez office. ??I believe he had significant reactions to antibitics in the past and it would be best if his care was left to one team so there aren't too many people making decisions. Patient and Raine made aware of plan. Patient stating they've LM with Dr. Gomez office awaiting return call. SOFTWARE ENGINEER documented in this encounter Plan of Treatment [...] documented as of this encounter Care Teams Laborer Pipeline Relationship Specialty Start Date End Date Jean-Claude Crawford MD [address] [facility] [address] [place] [address] PCP - General Family Medicine 08/18/19 04/11/20 documented as of this encounter
--- OUTSIDE RECORDS SUMMARY | 2024-04-08 10:38 | XMS_ITS | Encounter Summary ---
Author Organization [facility] Healthcare Address [address] [place] [address] Care Team Providers Care Computing Tutor Name Role Phone Jean-Claude Crawford MD Primary Care Provider Jean-Claude Crawford MD Unavailable [phone] Encounter Details Date Type Department Care Team (Latest Contact Info) Description 06/13/2021 7:00 AM SUPERVISOR WINTER - 06/13/2021 11:59 PM SUPERVISOR WINTER Hospital Encounter [facility] Cardiac Diagnostic Lab [address] [place] [address] Discharge Disposition: Discharge to home or self [...] on one occasion? 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 Do not swallow. 60 each 07/07/2021 2 folic acid (FOLVITE) 1 mg tablet Take 1 tablet (1 mg total) by mouth daily 30 tablet 02/22/2020 2 furosemide (LASIX) 40 mg tablet Take 1 tablet (40 mg total) by mouth 2 (two) times a day 60 tablet 11 02/22/2020 2 lisinopriL (PRINIVIL,ZESTRIL ) 40 mg tablet Take 1 tablet (40 mg total) by mouth daily 30 tablet 11 02/23/2020 2 metoprolol (LOPRESSOR) 100 mg tabletIndications :Atrial [...] 07/07/2021 2 documented as of this encounter Discharge Disposition Disposition Code Departure Means Destination Discharge to home or self care documented in this encounter Plan of Treatment Not on file documented as of this encounter Procedures Procedure Name Priority Date/Time Associated Diagnosis Comments TRANSTHORACIC ECHO (TTE) COMPLETE W DOPPLER/CF W CONTRAST W BUBBLE STAT 06/13/2021 4:49 PM SUPERVISOR WINTER documented in this encounter Visit Diagnoses Not on filedocumented in this encounter Administered Medications Inactive Administered Medications - up to 3 most recent administrations Medication Order MAR Action Action Date Dose Rate Site perflutren protein-a (OPTISON) 3 mL in sodium chloride 0.9% 8 mL syringe 1-8 mL, intravenous, Once in imaging, contrast, Starting on Sat06/13/21 at 0735, For 1 dose, Intra-Procedure (CV) Given by Other 06/13/2021 4:50 PM SUPERVISOR WINTER 6 mL documented in this encounter Orders Medications Ordered That Bimal ht Not Have Been Administered Count Last Ordered Date First Ordered Date perflutren protein-a (OPTISO N) 3 mL in sodium chloride 0.9% 8 mL syringe 1 06/13/2021 documented in this encounter Additional Health Concerns Infection Onset Date Last Indicated Resolved Time MDR gram neg/ESBL Comment:06/16/2021 IP Review - Pt with scrotal abscess, but is not actively draining (last documented draining on 06/14). Pt remains intubated so requires trach aspirate for isolation discontinuation. Provider notified. Amanda Walker RN 12/19/2019 12/19/2019 documented as of this encounter Care Teams Computing Tutor Relationship Specialty Start Date End Date Jean-Claude Crawford MD [address] [place] [address] PCP - General Family Medicine 04/12/20 06/12/22 Jean-Claude Crawford MD [address] [place] [address] Family Medicine 04/12/20 documented as of this encounter
--- OUTSIDE RECORDS SUMMARY | 2024-04-08 10:38 | XMS_ITS | Encounter Summary ---
Author Organization [facility] Address [address] [place] [address] Phone Care Team Providers Care Rn X Ray Name Role Phone Jean-Claude Crawford MD Primary Care Provider Jean-Claude Crawford MD Unavailable [phone] Encounter Details Date Type Department Care Team (Late st Contact Info) Description 06/19/2021 Orders Only [facility] Orthopaedic Surgery [address] [facility] Advanced Medicine 6th [place] [address] [place] [id number] Jessie Delvalle MD [address] [facility] [address] [place] [address] Fracture of greater trochanter of left femur (CMS/HCC) (HCC) (Primary Dx); Fall, initial encounter Social History Tobacco Use Types [...] Never 06/16/2021 How often do you attend zoroastrian or baptism serv ices? 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 Pt remains intubated so requires trach aspirate for isolation discontinuation. Provider notified. Amanda Walker RN 12/19/2019 12/19/2019 documented as of this encounter Care Teams Rn X Ray Relationship Specialty Start Date End Date Jean-Claude Crawford MD [address] [place] [address] PCP - General Family Medicine 04/12/20 06/12/22 Jean-Claude Crawford MD [address] [place] [address] Family Medicine 04/12/20 documented as of this encounter
--- OUTSIDE RECORDS SUMMARY | 2024-04-08 10:38 | XMS_ITS | Encounter Summary ---
Author Organization [facility] Healthcare Address [address] [place] [address] Care Team Providers Care Certified Ophthalmic Technologist Name Role Phone Jean-Claude Crawford MD Primary Care Provider Jean-Claude Crawford MD Unavailable [phone] Reason for Referral * Hospital - Outpatient (Routine) - Closed Specialty Diagnoses / Procedures Referred By Contac t Referred To Contact Diagnoses Atrial fibrillation, unspecified type (HCC) Chronic systolic heart failure (CMS/HCC) (HCC) Procedures Transthoracic Echo Complete W Doppler/CF Christopher Horton MD [address] [address] Phone: tel: fax: [facility] [address] [place] [address] Referral ID Status Reason Start Date Expiration Date Visits Re quested Visits Authorized [id number] Closed 08/25/2020 10/23/2020 1 1 Reason for Visit * Hospital - Outpatient (Routine) - Closed Specialty Diagnoses / Procedures Referred By Contac t Referred To Contact Diagnoses Atrial fibrillation, unspecified type (HCC) Chronic systolic heart failure (CMS/HCC) (HCC) Procedures Transthoracic Echo Complete W Doppler/CF Christopher Horton MD [address] [place] [address] Phone: tel: fax: [facility] [address] [place] [address] Referral ID Status Reason Start Date Expiration Date Visits Re quested Visits Authorized [id number] Closed 08/25/2020 10/23/2020 1 1 Encounter Details Date Type Department Care Team (Latest Contact Info) Description 08/30/2020 10:26 AM CDT Hospital Encounter [facility] OP Cardiac Testing [address] [facility] [address] [place] [address] Christopher Horton MD [address] [facility] [address] [place] [address] Atrial fibrillation, unspecified type (CMS/HCC); Chronic systolic heart failure (CMS/HCC) Discharge Disposition: Discharge to home or self [...] on file 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 Gender Identity Not on file Sexual Orientation Not on file documented as of this encounter Medications at Time of Discharge cholecalciferol (VITAMIN D-3) 5,000 unit tabletIndications:V itamin D Deficiency Take 1 tablet (5,000 Units total) by mouth every other day acetaminophen 500 mg capsuleIndications: Pain Take 2 capsules (1,000 mg total) by mouth every 6 (six) hours 50 tablet 1 06/13/19 22 apixaban (ELIQUIS) 5 mg tabletIndications:a trial fibrillation Take 1 tablet (5 mg total) by mouth every 12 (twelve) hours 60 tablet 0 07/08/19 22 folic acid (FOLVITE) 1 mg tablet Take 1 tablet (1 mg total) by mouth daily 30 tablet 0 10/05/19 22 furosemide (LASIX) 40 mg tablet Take 1 tablet (40 mg total) by mouth 2 (two) times a day 60 tablet 11 0 07/08/19 22 ibuprofen (ibuprofen) 200 mg tab/capIndications: Pain Take 800 mg by mouth as needed for pain 06/13/19 22 levalbuterol (XOPENEX) 1.25 mg/3 mL nebulizer solution Take 1.25 mg by nebulization as needed for shortness of breath 06/13/19 22 lisinopriL (PRINIVIL,ZESTRIL) 40 mg tablet Take 1 tablet (40 mg total) by mouth daily 30 tablet 11 0 07/08/19 22 magnesium oxide (MAG-OX) 400 mg (241.3 mg elemental magnesium) tabletIndications:h ypomagnesemia Take 400 mg by mouth every morning 06/13/19 22 metoprolol tartrate (LOPRESSOR) 50 mg immediate release tablet Take 1 tablet (50 mg total) by mouth 2 (two) times a day 60 tablet 0 09/08/19 21 multivit,tx with iron,minerals (THERA-M ORAL) Take 1 tablet by mouth every morning 08/04/19 23 ondansetron ODT (ZOFRAN-ODT) 4 mg disintegrating tablet Take 1 tablet (4 mg total) by mouth every 8 (eight) hours as needed for nausea 20 tablet 1 06/13/[address] (PROTONIX) 40 mg EC tabletIndications:S tress Ulcer Prophylaxis Take 1 tablet (40 mg total) by mouth daily 30 tablet 11 0 10/05/19 22 terazosin (HYTRIN) 10 mg capsule Take 1 capsule (10 mg total) by mouth nightly 30 capsule 0 10/05/19 22 thiamine (VITAMIN B1) 100 mg tabletIndications:T hiamine Deficiency Take 100 mg by mouth every morning 07/31/19 23 traMADoL (ULTRAM) 50 mg tabletIndications:P ain Take 1 tablet (50 mg total) by mouth every 6 (six) hours as needed for pain 20 tablet 06/13/19 22 documented as of this encounter Discharge Disposition Disposition Code Departure Means Destination Discharge to home or self care documented in this encounter Plan of Treatment Not on file documented as of this encounter Procedures Procedure Name Priority Date/Time Associated Diagnosis Comments TRANSTHORACIC ECHO (TTE) COMPLETE W DOPPLER/CF WO CONTRAST Routine 08/30/2020 12:09 PM CDT Atrial fibrillation, unspecified type (CMS/HCC) Chronic systolic heart failure (CMS/HCC) documented in this encounter Results * TRANSTHORACIC ECHO (TTE) COMPLETE W DOPPLER/CF WO CONTRAST (08/30/2020 12:09 PM CDT) Anatomical Region Laterality Modality Ultrasound 08/30/2020 10:5 2 AM CDT Narrative 08/30/2020 12:[address] [facility] Outpatient Cardiac Testing Center [facility] [place] [address] ECHOCARDIOGRAM Patient Name: JANIA GUAJARDO : 1950 Study Date: 08/30/2020 10:52:11 AM Gender: M Tech: [facility] Ref.Provider: CHRISTOPHER HORTON Height(Cm): 180 BSA: 2.09 Weight(Kg): 87.1BP: 134/70 Order Provider: CHRISTOPHER HORTON Procedures: Echocardiographic Report: Transthoracic Echocardiogram with complete 2D, M-Mode, Spectral and Color Flow Doppler examination. Indications: Atrial fibrillation. Measurements: 2D/M Mode ?Doppler ? Measurement ?Value ?Normal Range ? Measurement ?Value ?Normal Range ? IVSd 2D ?1.31 ? [ 0.60 - 0.90 ] cm ? AV Peak Teddy ?1.3 ?[ 1.0 - 1.7 ] m/s ? LVIDd 2D ? 5.40 ? [ 4.20 - 5.90 ] cm ? AV Peak PG ? 7 ?[ 2 - 9 ] mmHg ? LVIDs 2D ? 3.72 ? [ 2.30 - 3.90 ] cm ? AV Mean PG ? 3 ?[ 2 - 4 ] mmHg ? LVPWd 2D ? 1.29 ? [ 0.60 - 1.00 ] cm ? AV VTI ? 21.9 ? cm ? LA Dimen 2D ?4.30 ? cm ? GEOVANNY VTI ?1.9 ?[ 2.0 - 4.0 ] cm2 ? AR Diam 2D ? 4.20 ? cm ? LVOT Peak Teddy ?0.81 ? [ 0.70 - 1.10 ] m/s ? LA Volume Index ?47.00 ?[ 16.00 - 28.00 ] ml/m2 ?LVOT Diam ?2.1 ?[ 1.7 - 2.1 ] cm ? TAPSE ?1.30 ? [ 1.60 - 3.00 ] cm ? LVOT Peak PG ? 3 ?[ 2 - 6 ] mmHg ? LVOT VTI ? 11.8 ? [ 20.0 - 30.0 ] cm ? MV E Peak Teddy ?1.1 ?[ 0.6 - 1.3 ] m/s ? MV A Peak Teddy ?0.0 ?[ 1.0 - 1.2 ] m/s ? MV Decel Time ?194.4 ?[ 104.0 - 258.0 ] ms ? MV E/A Ratio ?RA Pressure ?3.0 ?mmHg ?PV Peak Teddy ?0.9 ?[ 0.4 - 0.8 ] m/s ?PV Peak PG ? 3 ?mmHg ?Lat E` Teddy ? 0.07 ? [ 0.10 - 0.15 ] m/s ?Sept E' Teddy ?0.07 ? [ 0.08 - 0.15 ] m/s ?E/E` ? 15.71 ?RV S' ?0.11 ? m/s ? - Findings: Study Quality: The study was [...] limits of normal. Electronically Signed By: Christopher Horton MD, [facility] 2020-08-30 12:21:56 CDT CC: CC: Procedure Note Christopher Horton MD - 08/30/2020 [facility] Cardiac Testing Center [facility] [place] [address] ECHOCARDIOGRAM Patient Name: JANIA GUAJARDOPatient ID: [id number] : [id number] Date: 08/30/2020 10:52:11 AM Gender: MAccession #: [id number] Tech: MACRef.Provider: CHRISTOPHER HORTON Height(Cm): 180BSA: 2.09 Weight(Kg): 87.1BP: 134/70 Order Provider: CHRISTOPHER HORTON Procedures: Echocardiographic Report: Transthoracic Echocardiogram with complete 2D, M-Mode, Spectral and ColorFlow Doppler examination. Indications: Atrial fibrillation. Measurements: 2D/M Mode Doppler Measurement Value Normal Range MeasurementValue Normal Range IVSd 2D 1.31 [ 0.60 - 0.90 ] cm AV Peak Vel1.3 [ 1.0 - 1.7 ] m/s LVIDd 2D 5.40 [ 4.20 - 5.90 ] cm AV Peak PG 7[ 2 - 9 ] mmHg LVIDs 2D 3.72 [ 2.30 - 3.90 ] cm AV Mean PG 3[ 2 - 4 ] mmHg LVPWd 2D 1.29 [ 0.60 - 1.00 ] cm AV VTI21.9 cm LA Dimen 2D 4.30 cm GEOVANNY VTI1.9 [ 2.0 - 4.0 ] cm2 AR Diam 2D 4.20 cm LVOT Peak Vel0.81 [ 0.70 - 1.10 ] m/s LA Volume Index 47.00 [ 16.00 - 28.00 ] ml/m2 LVOT Diam2.1 [ 1.7 - 2.1 ] cm TAPSE 1.30 [ 1.60 - 3.00 ] cm LVOT Peak PG 3[ 2 - 6 ] mmHg LVOT VTI11.8 [ 20.0 - 30.0 ] cm MV E Peak Vel1.1 [ 0.6 - 1.3 ] m/s MV A Peak Vel0.0 [ 1.0 - 1.2 ] m/s MV Decel [id number] [ 104.0 - 258.0 ] ms MV [...] left ventricular systolic dysfunction. Ejection Fraction is estimatedat 45- 50 %. Normal left ventricular cavity size. Mild concentric left ventricularhypertrophy. Right Ventricle: Mild right ventricular dysfunction. Right ventricular chamber size upperlimits of normal. Left Atrium: There is moderate enlargement of the left atrium. Right Atrium: The right atrium is normal in size. Atrial Septum: Normal appearing atrial septum. Mitral Valve: Normal appearance of the mitral valve leaflets. Mild mitral valveregurgitation. Aortic Valve: Normal aortic valve appearance and function. Tricuspid Valve: Normal tricuspid valve appearance and function. TR envelope inadequate toestimate RVSP. Pulmonic Valve: Grossly normal appearing pulmonic valve. Pericardium: Normal appearing pericardial thickness. No significant pericardialeffusion. Aortic Root and Aorta: Normal caliber aortic root. Aortic Arch: Grossly normal aortic arch. IVC: Normal appearance of the inferior vena cava. Conclusions: 1. Mild left ventricular systolic dysfunction. Ejection Fraction isestimated at 45-50 %. Normal left ventricular cavity size. Mild concentric left ventricularhypertrophy. 2. Mild right ventricular dysfunction. Right ventricular chamber sizeupper limits of normal. Electronically Signed By: Christopher Horton MD, [facility] 2020-08-30 12:21:56 CDT CC: CC: Christopher Horton MD CV ECHO PROCEDURES Final Result documented in this encounter Visit Diagnoses Diagnosis Atrial fibrillation, unspecified type (HCC) Chronic systolic heart failure (CMS/HCC) (HCC) Chronic systolic heart failure documented in this encounter Additional Health Concerns Infection Onset Date Last Indicated Resolved Time MDR gram neg/ESBL Comment:06/16/2021 IP Review - Pt with scrotal abscess, but is not actively draining (last documented draining on 06/14). Pt remains intubated so requires trach aspirate for isolation discontinuation. Provider notified. Amanda Walker RN 12/19/2019 12/19/2019 documented as of this encounter Care Teams Certified Ophthalmic Technologist Relationship Specialty Start Date End Date Jean-Claude Crawford MD [address] [place] [address] PCP - General Family Medicine 04/12/20 06/12/22 Jean-Claude Crawford MD [address] [place] [address] Family Medicine 04/12/20 documented as of this encounter
--- OUTSIDE RECORDS SUMMARY | 2024-04-08 10:38 | XMS_ITS | Encounter Summary ---
Author Organization [facility] Address [address] [place] [address] Phone Care Team Providers Care Flight Attendant Ramp Name Role Phone Jean-Claude Crawford MD Primary Care Provider Encounter Details Date Type Department Care Team (Late st Contact Info) Description 03/15/2020 Orders Only [facility] Surgery [address] [place], [place] [id number] Eugene Gomez MD [address] [facility] [id number] [place] [address] Social History Tobacco Use Types Packs/Day Years Used Date Smoking Tobacco: Every Day Cigarettes Smokeless Tobacco: Never Alcohol Use Standard Drinks/Week Comments Yes 0 (1 standard drink = 0.6 oz pur e alcohol) limited Sex and Gender Information Value Date Recorded Sex Assigned at Not on file 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
--- OUTSIDE RECORDS SUMMARY | 2024-04-08 10:38 | XMS_ITS | Encounter Summary ---
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 Name Role Phone Jean-Claude Crawford MD Primary Care Provider Jean-Claude Crawford MD Unavailable Encounter Details Date Type Department Care Team (Latest Contact Info) Description 07/13/2020 6:05 AM CDT - 07/16/2020 11:00 AM CDT Hospital Encounter [facility] [address] [place] [address] Eugene Oates MD [address] [facility] [id number] [place] [address] Acute cholecystitis Discharge Disposition: Discharge to home or self [...] on file 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 Gender Identity Not on file Sexual Orientation Not on file documented as of this encounter Last Filed Vital Signs Vital Sign Reading Time Taken Comments Blood Pressure 178/127 07/16/2020 8:30 AM CDT Pulse 105 07/16/2020 8:30 AM CDT Temperature 36.4 ??C (97.5 ??F) 07/16/2020 8:30 AM CD T Respiratory Rate 18 07/16/2020 8:30 AM CDT Oxygen Saturation 98% 07/16/2020 8:30 AM CDT Inhaled Oxygen Concentration - - Weight 87.1 kg (192 lb) 07/16/2020 6:25 AM CDT Height 180.3 cm (5' 11 ) 07/13/2020 9:02 PM CDT Body Mass Index 26.78 07/13/2020 9:02 PM CDT documented in this encounter Discharge Diagnoses Diagnosis Calculus of gallbladder with chronic cholecystitis with obstruction - CALCULUS OF GALLBLADDER WITH CHRONIC CHOLECYSTITIS WITH OBSTRUCTION Peritoneal abscess (CMS/HCC) ([facility]) - PERITONEAL ABSCESS Peritoneal abscess Benign prostatic hyperplasia without lower urinary tract symptoms - BENIGN PROSTATIC HYPERPLASIA WITHOUT LOWER URINARY TRACT SYMPTOMS Gastro-esophageal reflux disease without esophagitis - GASTRO-ESOPHAGEAL REFLUX DISEASE WITHOUT ESOPHAGITIS Hyperlipidemia, unspecified - HYPERLIPIDEMIA, UNSPECIFIED Hypertensive heart disease with heart failure (CMS/HCC) (HCC) - HYPERTENSIVE HEART DISEASE WITH HEART FAILURE Unspecified hypertensive heart disease with heart failure Unspecified atrial fibrillation (HCC) - UNSPECIFIED ATRIAL FIBRILLATION Nicotine dependence, cigarettes, uncomplicated - NICOTINE DEPENDENCE, CIGARETTES, UNCOMPLICATED Heart failure, unspecified (CMS/HCC) (HCC) - HEART FAILURE, UNSPECIFIED Heart failure, unspecified Allergy status to penicillin - ALLERGY STATUS TO PENICILLIN 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 - 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 (CURRENT) USE OF ANTICOAGULANTS Long-term (current) use of anticoagulants Other prison (current) drug therapy - OTHER 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 (CURRENT) DRUG THERAPY Family history of malignant neoplasm of trachea, bronchus and lung - FAMILY HISTORY OF MALIGNANT NEOPLASM OF TRACHEA, BRONCHUS AND LUNG Family history of malignant neoplasm of trachea, bronchus, and lung Personal history of transient ischemic attack (TIA), and cerebral infarction without residual deficits - PERSONAL HISTORY OF TRANSIENT ISCHEMIC ATTACK (TIA), AND CEREBRAL INFARCTION WITHOUT RESIDUAL DEFICI documented in this encounter Discharge Summaries * Tamiko Lovell MD - 07/16/2020 8:00 AM CDT Inpatient Discharge Summary BRIEF OVERVIEW Admitting Provider: Eugene Oates MD Discharge Provider: Eugene Oates MD Primary Care Physician at Discharge: Jean-Claude Crawford MD [phone] Admission Date: 07/13/2020 Discharge Date: 07/16/20 3 Primary Discharge Diagnosis: Cholecystitis Secondary Discharge Diagnosis: Principal Problem: Cholecystitis DETAILS OF HOSPITAL STAY Presenting Problem/History of Present Illness: Mr. Guajardo is a 70 y.o. male with complicated cholecystitis treated with several percutanous drains that has been recurrent in nature. ??Based on his imaging from today, he has a continued, but improving abscess with a draining skin component/fistula. ??We discussed cholecystectomy, likely subtotal/fenestrating, to prevent further complications of cholecystitis and to remove the source of chronic infection. When I saw him in clinic, we discussed open cholecystectomy.?We discussed this operation, including the risks, benefits, and alternatives to surgical treatment. ??Specifically, we discussed the risk of , biliary??leak requiring drain placement or re-operative intervention, risk of post-operative bleeding, infection, and wound-related complications. ??We further discussed common scenarios encountered after GI??surgery, including delayed gastric emptying, ileus, dumping syndrome,and other gastrointestinal issues, including the management of these problems. ??We also discussed risks related to general anesthesia. ??We discussed the expected post-operative course, including the expected length of stay, time to beginning PO intake, and the follow-up involved. ??I spencer severalpictures and provided .??Юлия??with literature and several websites to obtain more information (ACS, NCI, ASCO). ??After our discussion, ??decided to proceed with surgery. ??Informed consent was obtained and he presented on the day of surgery. Hospital Course: Mr. Jania Guajardo was admitted on the day of surgery for his planned elective procedure. Please see full dictated operative summary for details. After initial recovery in the PACU he was transferred to the [facility] floor where the patient remained throughout the rest of the admission. Antibiotics were started, diet was advanced, multimodal pain regimen was initiated, and home medications were restarted. He was encouraged to ambulate and worked with PT/OT throughout the admission. By the time of discharge he was tolerating small portion low fat diet, pain was well controlled on oral medications, andhe was voiding and ambulating without difficulty. The drain was removed prior to discharge as there was no evidence of bile leak. Active Issues Requiring Follow-up: Staple removal Completion of antibiotic course Test Results Pending at Discharge: Surgical Pathology Operative Procedures Performed: 1. Exploratory laparotomy. 2. Evacuation and drainage of intraabdominal abscess. 3. Subtotal fenestrating cholecystectomy Other Procedures: Pertinent Test Results: Lab Results Component Value Date WBC 9.2 07/14/2020 WBC 10.0 (H) 07/14/2020 WBC 6.5 02/20/2020 ] Lab Results Component Value Date CREATININE 0.79 (L) 07/14/2020 CREATININE 0.77 (L) 07/14/2020 CREATININE 0.81 06/22/2020 ] Lab Results Component Value Date HGB 12.6 (L) 07/14/2020 HGB 13.7 07/14/2020 HGB 11.3 (L) 02/20/2020 Lab Results Component Value Date BILITOT 0.6 07/14/2020 BILITOT 0.5 07/14/2020 BILITOT 0.5 06/22/2020 Lab Results Component Value Date ALKPHOS 91 07/14/2020 ALKPHOS 88 07/14/2020 ALKPHOS 87 06/22/2020 Lab Results Component Value Date AST 23 07/14/2020 AST 17 07/14/2020 AST 16 06/22/2020 Lab Results Component Value Date ALT 14 07/14/2020 ALT 9 07/14/2020 ALT 9 06/22/2020 Lab Results Component Value Date INR 1.1 07/13/2020 INR 1.6 (H) 02/21/2020 INR 1.2 02/20/2020 Lab Results Component Value Date PHOS 2.8 07/14/2020 PHOS 3.9 07/14/2020 PHOS 2.9 02/20/2020 Discharge Details Physical Exam at Discharge: Discharge Condition: Good Pulse: 81 Resp: 18 BP: (!) 156/107 Temp: 36.3 ??C (97.4 ??F) Weight: 87.1 kg (192 lb) Pertinent Exam Findings at Discharge: see last progress note Discharge Disposition: Discharge to home or self care Code Status at Discharge: Full Code Discharge Instructions: Other Instructions Discharge instructions You should get a call from the office about an appointment with ENT for a white lesion noted duringyour surgery. If you do not hear from the office in 5-7 business days please call [phone] dry dressing over incision - change daily or as needed if soiled. Keep dry dressing also overdrain site for the first 1-2 weeks ! Call Your Doctor If Call if you are having any problems after surgery. We prefer you call us directly rather than go to your local hospital or clinic. Even if you decide to go to your local emergency room, call us so we can arrange transfer if needed. Call your surgeon???s office (listed in follow up section) for the following: * You have a fever of 101 degrees or higher. * You have drainage from your incisions. * Your incisions are red or swollen. * Your pain medicine is not helping your pain. * You have nausea or vomiting. * You are not passing gas. * You are having diarrhea. * Your eyes appear yellow; you have alexandria-colored stool, dark urine, and/or itching. These can be a signs of a problem with your liver. ! Diet * Follow a LOW FAT Heart Healthy DIET ! Activity * No lifting greater than 10 pounds for 6 weeks. * No driving while taking narcotic pain medication. * No tub baths, swimming, or hot tubs for 6 weeks. * You may shower; do not scrub the incision sites. * You are encouraged to walk frequently and remain active during the day. * You may return to non-strenuous work activity in 3-4 weeks. Care Instructions * Keep the incision sites clean and dry. * Do not apply cream or lotion to surgical sites. * Continue Incentive Spirometry throughout the day. * [place] will be removed in clinic. They will apply steri-strips over your incision(s) which will fall off on their own. You may remove the steri-strips after one week if they have not fallen off. Special Instructions ! Follow Up * DR. OATES will see you on SaturdayJuly 29 at 2:15pm in the [facility] - Medical Office Building 2, [address] [facility], [place] [address](see map). Please call for questions or concerns. * With your PRIMARY CARE DOCTOR (PCP) within 2-3 weeks after discharge. Additional Information Pathology usually comes back in 7-10 business days. Discharge Medications: Your medication list START taking these medications ciprofloxacin 500 mg tablet Take 1 tablet (500 mg total) by mouth 2 (two) times a day for 7 doses Commonly known as: CIPRO metroNIDAZOLE 500 mg tablet Take 1 tablet (500 mg total) by mouth 3 (three) times a day for 12 doses Commonly known as: FLAGYL ondansetron ODT 4 mg disintegrating tablet Take 1 tablet (4 mg total) by mouth every 8 (eight) hours as needed for nausea Commonly known as: ZOFRAN-ODT senna-docusate 8.6-50 mg Take 1 tablet by mouth 2 (two) times a day Commonly known as: PERICOLACE traMADoL 50 mg tablet Take 1 tablet (50 mg total) by mouth every 6 (six) hours as needed for pain Commonly known as: ULTRAM CHANGE how you take these medications acetaminophen 500 mg capsule Take 2 capsules (1,000 mg total) by mouth every 6 (six) hours What changed: how much to take when to take this reasons to take this apixaban 5 mg tablet Take 1 tablet (5 mg total) by mouth every 12 (twelve) hours Commonly known as: ELIQUIS What changed: additional instructions folic acid 1 mg tablet Take 1 tablet (1 mg total) by mouth daily Commonly known as: FOLVITE What changed: when to take this furosemide 40 mg tablet Take 1 tablet (40 mg total) by mouth 2 (two) times a day Commonly known as: LASIX What changed: when to take this lisinopriL 40 mg tablet Take 1 tablet (40 mg total) by mouth daily Commonly known as: PRINIVIL,ZESTRIL What changed: when to take this pantoprazole DR 40 mg EC tablet Take 1 tablet (40 mg total) by mouth daily Commonly known as: PROTONIX What changed: when to take this CONTINUE taking these medications cholecalciferol 5,000 unit tablet Commonly known as: VITAMIN D-3 ibuprofen 200 mg tab/cap Commonly known as: ADVIL,MOTRIN levalbuterol 1.25 mg/3 mL nebulizer solution Commonly known as: XOPENEX magnesium oxide 400 mg (241.3 mg elemental magnesium) tablet Commonly known as: MAG-OX metoprolol tartrate 50 mg immediate release tablet Take 1 tablet (50 mg total) by mouth 2 (two) times a day Commonly known as: LOPRESSOR terazosin 10 mg capsule Take 1 capsule (10 mg total) by mouth nightly Commonly known as: HYTRIN THERA-M ORAL thiamine 100 mg tablet Commonly known as: VITAMIN B1 STOP taking these medications loperamide 2 mg capsule Commonly known as: IMODIUM potassium chloride ER 20 mEq CR tablet Commonly known as: KLOR-CON Outpatient Follow-Up: Future Appointments Date Time Provider Department Center 07/29/2020 2:15 PM Eugene Oates MD [facility] BW [facility] 08/10/2020 10:00 AM [facility] ECHO (210) [facility] OP Card [facility] Main 08/10/2020 12:00 PM [facility] STRESS NUC 1 (210) [facility] OP Card [facility] Main 08/10/2020 12:15 PM [facility] STRESS NUC 1 (210) [facility] OP Card [facility] Main 08/10/2020 1:00 PM [facility] EVENT/MONITOR (210) [facility] OP Card [facility] Main 12/21/2020 1:30 PM Abiodun Novak MD [facility] MG Decent Cosigned by Eugene Oates MD at 07/17/2020 7:51 AM CDT documented in this encounter Discharge Instructions * Discharge Instructions* Tamiko Lovell MD - 07/16/2020 8:32 AM CDT ! Call Your Doctor If Call if you are having any problems after surgery. We prefer you call us directly rather than go to your local hospital or clinic. Even if you decide to go to your local emergency room, call us so we can arrange transfer if needed. Call your surgeon???s office (listed in follow up section) for the following: * You have a fever of 101 degrees or higher. * You have drainage from your incisions. * Your incisions are red or swollen. * Your pain medicine is not helping your pain. * You have nausea or vomiting. * You are not passing gas. * You are having diarrhea. * Your eyes appear yellow; you have alexandria-colored stool, dark urine, and/or itching. These can be a signs of a problem with your liver. ! Diet * Follow a LOW FAT Heart Healthy DIET ! Activity * No lifting greater than 10 pounds for 6 weeks. * No driving while taking narcotic pain medication. * No tub baths, swimming, or hot tubs for 6 weeks. * You may shower; do not scrub the incision sites. * You are encouraged to walk frequently and remain active during the day. * You may return to non-strenuous work activity in 3-4 weeks. Care Instructions * Keep the incision sites clean and dry. * Do not apply cream or lotion to surgical sites. * Continue Incentive Spirometry throughout the day. * [place] will be removed in clinic. They will apply steri-strips over your incision(s) which will fall off on their own. You may remove the steri-strips after one week if they have not fallen off. Special Instructions ! Follow Up * DR. OATES will see you on SaturdayJuly 29 at 2:15pm in the [facility] - Medical Office Building 2, [address] [place] [address](see map). Please call for questions or concerns. * With your PRIMARY CARE DOCTOR (PCP) within 2-3 weeks after discharge. Additional Information Pathology usually comes back in 7-10 business days. documented in this encounter Medications at Time of Discharge cholecalciferol (VITAMIN D-3) 5,000 unit tabletIndications:V itamin D Deficiency Take 1 tablet (5,000 Units total) by mouth every other day ciprofloxacin (CIPRO) 500 mg tabletIndications:A bdominal/Pelvic Infection Take 1 tablet (500 mg total) by mouth 2 (two) times a day for 7 doses 7 tablet 1 07/20/19 21 metroNIDAZOLE (FLAGYL) 500 mg tabletIndications:A bdominal/Pelvic Infection Take 1 tablet (500 mg total) by mouth 3 (three) times a day for 12 doses 12 tablet 1 07/20/19 21 senna-docusate (PERICOLACE) 8.6-50 mg Take 1 tablet by mouth 2 (two) times a day 60 tablet 1 08/15/19 21 acetaminophen 500 mg capsuleIndications: Pain Take 2 [...] 6 (six) hours as needed for pain 10 tablet 1 07/26/19 21 documented as of this encounter Ordered Prescriptions Prescription Sig Dispense Quantity Refills Last Filled Start Date End Date traMADoL (ULTRAM) 50 mg tabletIndications:Pa in Take 1 tablet (50 mg total) by mouth every 6 (six) hours as needed for pain 10 tablet 07/15/2020 1 senna-docusate (PERICOLACE) 8.6-50 mg Take 1 tablet by mouth 2 (two) times a day 60 tablet 07/15/2020 1 ondansetron ODT (ZOFRAN-ODT) 4 mg disintegrating tablet Take 1 tablet (4 mg total) by mouth every 8 (eight) hours as needed for nausea 20 tablet 07/15/2020 2 metroNIDAZOLE (FLAGYL) 500 mg tabletIndications:Ab dominal/Pelvic Infection Take 1 tablet (500 mg total) by mouth 3 (three) times a day for 12 doses 12 tablet 07/15/2020 1 ciprofloxacin (CIPRO) 500 mg tabletIndications:Ab dominal/Pelvic Infection Take 1 tablet (500 mg total) by mouth 2 (two) times a day for 7 doses 7 tablet 07/15/2020 1 acetaminophen 500 mg capsuleIndications:P ain Take 2 capsules (1,000 mg total) by mouth every 6 (six) hours 50 tablet 07/15/2020 2 documented in this encounter Discharge Disposition Disposition Code Departure Means Destination Discharge to home or self care documented in this encounter Progress Notes * Tamiko Lovell MD - 07/16/2020 7:57 AM CDT Hepatobiliary Surgery Daily Progress HPI: Mr. Jania Guajardo is a 70 y.o. year old admitted for Cholecystitis Length of Hospitalization: 3 Post Procedure Day: 07/13/2020 Procedure(s): CHOLECYSTECTOMY SUBJECTIVE/ INTERVAL HISTORY No acute events overnight Having some pain that is controlled with PO medications No new labs to review Tolerating regular diet no nausea Adequate UOP, drain with minimal output Objective Physical Exam Constitutional: Appears comfortable. Lying in bed. No distress. HENT: No nasal cannula nor NGT Eyes: Conjunctivae are normal. Pulmonary/Chest: Effort normal No respiratory distress. No grossly audible wheezes nor rales Abdominal: Soft. No distension. Appropriately tender. Incision closed with breann. No drainage, erythema, induration. Drain in RUQ to gravity serosanguinous output. There is no rebound and no guarding. Musculoskeletal: Normal range of motion. No edema or deformity. Neurological: Alert and oriented to person, place, and time. Skin: Skin is warm and dry. No rash noted. Not diaphoretic. No erythema. Psychiatric: Normal mood and affect. Current Facility-Administered Medications: ??? acetaminophen (TYLENOL) tablet 1,000 mg, 1,000 mg, oral, Q6H MONET, 1,000 mg at 07/16/20632 ??? albuterol 2.5 mg/0.5 mL nebulizer solution 2.5 mg, 2.5 mg, nebulization, QID (RT), 2.5 mg at 07/15/201932 AND ipratropium (ATROVENT) 0.02 % nebulizer solution 0.5 mg, 0.5 mg, nebulization, QID (RT), 0.5 mg at 07/15/201932 ??? apixaban (ELIQUIS) tablet 5 mg, 5 mg, oral, Q12H MONET, 5 mg at 07/15/202100 ??? ciprofloxacin (CIPRO) tablet 500 mg, 500 mg, oral, BID - special, 500 mg at 04/10/21 0633 ??? folic acid (FOLVITE) tablet 1 mg, 1 mg, oral, QAM, 1 mg at 07/15/20 0808 ??? levalbuterol (XOPENEX) 1.25 mg/3 mL nebulizer solution 1.25 mg, 1.25 mg, nebulization, Q4H PRN (RT), 1.25 mg at 07/14/20 1027 ??? lisinopriL (PRINIVIL,ZESTRIL) tablet 20 mg, 20 mg, oral, Daily, 20 mg at 07/15/20 1235 ??? metoprolol tartrate (LOPRESSOR) immediate release tablet 25 mg, 25 mg, oral, BID, 25 mg at 07/15/20 2100 ??? metroNIDAZOLE (FLAGYL) tablet 500 mg, 500 mg, oral, TID, 500 mg at 07/15/20 2100 ??? ondansetron (ZOFRAN) injection 4 mg, 4 mg, intravenous, Q6H PRN ??? pantoprazole DR (PROTONIX) extended release tablet 40 mg, 40 mg, oral, QAM, 40 mg at 07/15/20 08 ??? ramelteon (ROZEREM) tablet 8 mg, 8 mg, oral, Nightly PRN, 8 mg at 07/14/202221 ??? senna-docusate (PERICOLACE) 8.6-50 mg per tablet 1 tablet, 1 tablet, oral, BID, 1 tablet at 07/15/20 08 ??? terazosin (HYTRIN) capsule 10 mg, 10 mg, oral, Nightly, 10 mg at 07/15/202100 ??? thiamine (VITAMIN B1) tablet 100 mg, 100 mg, oral, QAM, 100 mg at 07/15/20 0808 ??? traMADoL (ULTRAM) tablet 50 mg, 50 mg, oral, Q4H PRN, 50 mg at 07/15/20 1057 Lab/Radiology/Diagnostic Review: Laboratory studies from the past 24 hours were reviewed and significant for Lab Results Component Value Date WBC 9.2 07/14/2020 WBC 10.0 (H) 07/14/2020 WBC 6.5 02/20/2020 Lab Results Component Value Date HGB 12.6 (L) 07/14/2020 HGB 13.7 07/14/2020 HGB 11.3 (L) 02/20/2020 Lab Results Component Value Date HCT 36.5 (L) 07/14/2020 HCT 39.3 07/14/2020 HCT 34.3 (L) 02/20/2020 Lab Results Component Value Date CREATININE 0.79 (L) 07/14/2020 CREATININE 0.77 (L) 07/14/2020 CREATININE 0.81 06/22/2020 Lab Results Component Value Date BILITOT 0.6 07/14/2020 BILITOT 0.5 07/14/2020 BILITOT 0.5 06/22/2020 Lab Results Component Value Date ALKPHOS 91 07/14/2020 ALKPHOS 88 07/14/2020 ALKPHOS 87 06/22/2020 Lab Results Component Value Date AST 23 07/14/2020 AST 17 07/14/2020 AST 16 06/22/2020 Lab Results Component Value Date ALT 14 07/14/2020 ALT 9 07/14/2020 ALT 9 06/22/2020 Lab Results Component Value Date INR 1.1 07/13/2020 INR 1.6 (H) 02/21/2020 INR 1.2 02/20/2020 Recent Radiology studies were reviewed and significant for: NA Vitals: 24hr Min/Max: Temp Min: 36.3 ??C (97.4 ??F) Max: 37.1 ??C (98.8 ??F) Pulse Min: 53 Max: 141 BP Min: 143/98 Max: 193/123 Resp Min: 18 Max: 18 SpO2 Min: 90 % Max: 100 % Most Recent: Vitals: 07/16/20 0340 BP: (!) 156/107 Pulse: 81 Resp: 18 Temp: 36.3 ??C (97.4 ??F) SpO2: 93% I/O last 2 completed shifts: In: 0 Out: 705 [Urine:675; Drains:30] I/O this shift: In: - Out: 400 [Urine:400] Recent Interventions: NA Assessment/Plan 1. History of Cholecystitis, cholangitis, hepatic abscess s/p percutaneous drainage, abx now s/p open subtotal fenestrating cholecystectomy - regular diet - HLIV - continue cipro/ flagyl for 5 day course - resume eliquis - bowel regimen - remove drain today - ambulate in cooper TID - Plan for discharge home today - patient does not want home health and feels comfortable performing daily dressing changes Tamiko Lovell MD 17:59 AM Cosigned by Naman Lei MD at 07/16/2020 9:58 AM CDT * Don Vincent - 07/15/2020 11:10 AM CDT Occupational Therapy Occupational Therapy Initial Assessment NOTE:This is a summary note for the troy assessments completed during the evaluation session. For full details, review chart review for all flowsheets documented on by this Occupational Therapist on this date. Vital signs documented in vital signs flowsheet. Assessment Assessment Problem List: Decreased safe judgment during ADL, Decreased cognition, Decreased balance, DecreasedADL independence, Decreased IADL independence Barriers to Discharge: Current Mobility Status, Inaccessible home environment, Cognition, Decreasedsafety awareness Plan Plan Plan: Plan of care initiated, If this is the last note, consider this the discharge summary OT Recommendation and Plan Recommendation/Plan OT Recommendation: Inpatient Rehab Facility OT Frequency: 3-5x/wk Comments: All OOB ADL/mobility tasks were deferred d/t elevated blood pressure and heart rate, RN notified; pt was educated on abdominal precautions with present and verbalized initial understanding; engaged in discussion regarding d/c planning and recommendation Treatment/Interventions: ADL/IADL retraining, Balance Training, Bed mobility, Cognitive retraining,Functional mobility training, Functional transfer training OT - Next Appointment: 07/18/20 OT Evaluation Complete: Yes General Information General Chart Reviewed: Yes Session Type: Evaluation OT Received On: 07/15/20 Safe Environment: Arm Band Checked, Bed Alarm placed and activated, Notified RN, Session Completed Bedside, Overbed Table within Reach, Bed rails up per protocol, Call Light within Reach(Pt was left in chair with bed alarm activated and RN notifie) Subjective: Agreeable to Therapy Family/Caregiver Present: Yes() Occupational Therapy-Patient Goal: Pt was receptive to perform ADLs EOB; was supportive for working on functional mobility in preparation for toilet transfer/toileting Precautions Precautions Precautions: Fall risk, Abdominal Precaution Handout Issued: Yes Precaution Comments: Educated and reviewed abdominal precautions with patient and family member; ptwas [place] and legally blind but verbally demonstrated initial understanding Home Living Home Living Type of Home: House(Split level home) Home Layout: Multi-level( 7 steps to go up and 7 to go down ) Home Access: Stairs to enter with rails Entrance Stairs-Rails: (one side) Entrance Stairs-Number of Steps: 3-4 Bathroom Shower/Tub: Walk-in shower without threshold Bathroom Toilet: Raised Bathroom Equipment: Grab bars in shower/tub, Grab bars around toilet Home Mobility Equipment: Quad cane-small base, Wheeled walker(Used wheeled walker PRN at baseline) Home ADL Equipment: (shower bench) Prior Function Prior Function Level of [place]: Independent with ADLs, Independent with homemaking with ambulation, Independent functional transfers, Independent with ambulation Lives With: Spouse Receives Help From: Spouse/Significant other(plating foreman) Driving: No(Pt is legally blind and hasn't been driving for 20 years) Mode of Transportation: Family ADL Assistance: Independent Instrumental ADL (IADL) Assistance: Needs assistance(Receive IADL help from ) Vocational/Occupation: Retired Fall within the last 6 months: No Activities of Daily Living LE Dressing LE Dressing: Where assessed: Sitting, Edge of bed LE Dressing: Level of assistance: Moderate Assist LE Dressing: Assistance with: Increased time to complete, Supervision/safety Pain Pain Assessment Pain Assessment: 0-10 Pain Score: 8 Pain Location: Abdomen Pain Interventions: RN Notified Cognition Cognition Cognition Comments: Pt was on bed alarm and was impulsive in getting out of the bed; pt required repeated redirection and explaination for change of session plan d/t vital signs Overall Cognitive Status: Impaired(Pt score 7 on SBT) Arousal/Alertness: Delayed responses to stimuli Attention Span: Attends with cues to redirect Memory: Appears intact Orientation : Oriented to person, Oriented to place, Oriented to situation Following Commands: Follows multistep commands with repetition Safety Judgment: Impulsive(decreased safety awareness and need for assistance) Awareness of Errors: Assistance required to identify errors made, Assistance required to correct errors made, Decreased awareness of errors Insight: Decreased awareness of deficits Problem Solving: Assistance required to identify errors made, Assistance required to generate solutions Compliance/Behavior: Easy to engage Short Blessed Test What year is it now?: Correct What month is it now?: Correct Repeat this name and address after me: Brijesh Boss [address] [facility](Required 2 repititions) Without looking at the clock, tell me what time it is: Incorrect-within one hour Count aloud backwards from 20-1: 0 Errors Say the months of the year backwards in reverse order: 2 Errors(Pt unable to continue after September ) Repeat the name and address I asked you to remember: 0 Errors(Pt stated [facility] instead of [facility] ) Short Blessed Total Score: 7 6 Clicks Balance Static Sitting Balance Static Sitting-Balance Support: Feet supported Static Sitting-Sitting Surface: Bed Static Sitting-Level of Assistance: Distant supervision(safety) Dynamic Sitting Balance Dynamic Sitting-Balance Support: Unilateral upper extremity supported, Feet supported Dynamic Sitting-Balance: Lateral lean, Forward lean, Reaching for objects, Reaching across midline Dynamic Sitting-Sitting Surface: Bed Dynamic Sitting-Level of Assistance: Distant supervision(safety) Transfers Transfers Transfer: No(gait belt not used due to no oob mobility assessed ) Bed Mobility Bed Mobility Bed Mobility: Yes Bed Mobility 1 Bed Mobility From 1: Supine Bed Mobility Type 1: To and from Bed Mobility to 1: Side lying-right Level of Assistance 1: Standby Assist Bed Mobility Comments 1: For safety and VCs for precaution Bed Mobility 2 Bed Mobility From 2: Side lying-right Bed Mobility Type 2: To and from Bed Mobility to 2: Edge of Bed Level of Assistance 2: Standby Assist Bed Mobility Comments 2: For safety and VCs for precaution; Pt pushed up with HOB raised 30 degreesdue to impulsitivity RUE Assessment LUE Assessment Other Comments Other Comments Comments: All OOB ADL/mobility tasks were deferred d/t elevated blood pressure and heart rate, RN notified; pt was educated on abdominal precautions with present and verbalized initial understanding; engaged in discussion regarding d/c planning and recommendation OT Goals Multi-Disciplinary Problems (from Occupational Therapy) Active Problems Problem: Dressings Lower Extremities Start Date: 07/15/20 Goal Start Date End Date STG - Patient to complete lower body dressing 07/15/20 -- Goal Details: Supervision Problem: Toileting Start Date: 07/15/20 Goal Start Date End Date STG - Patient will complete toileting tasks with 07/15/20 -- Goal Details: Supervision Problem: Transfers Start Date: 07/15/20 Goal Start Date End Date STG - Patient will perform toilet transfer 07/15/20 -- Goal Details: Supervision Problem: Precautions Start Date: 07/15/20 Goal Start Date End Date STG - Patient will demonstrate precautions consistently during ADL tasks/functional mobility. 07/15/20 -- Problem: OT Misc Start Date: 07/15/20 Goal Start Date End Date OT LTG - Misc 1 07/15/20 -- Goal Details: Pt to perform ADL with modified independence. Cosigned by Miladys Victor OT at 07/20/2020 4:00 PM CDT * Stephany Chavez PA - 07/15/2020 6:52 AM CDT Hepatobiliary Surgery Daily Progress HPI: Mr. Jania Guajardo is a 70 y.o. year old admitted for Cholecystitis Length of Hospitalization: 2 Post Procedure Day: 07/13/2020 Procedure(s): CHOLECYSTECTOMY SUBJECTIVE/ INTERVAL HISTORY Was disoriented yesterday, now resolved Drain output 70cc, non bilious Tolerating regular diet Wheezing improved with neb tx Patient denies uncontrolled pain, nausea, fever, shortness of breath. Objective Physical Exam Constitutional: Appears comfortable. Lying in bed. No distress. HENT: No nasal cannula nor NGT Eyes: Conjunctivae are normal. Pulmonary/Chest: Effort normal No respiratory distress. No grossly audible wheezes nor rales Abdominal: Soft. No distension. Appropriately tender. Incision loosely approximated with breann, zeferino removed. No drainage, erythema, induration. Drain in RUQ to gravity serosanguinous output. There is no rebound and no guarding. Musculoskeletal: Normal range of motion. No edema or deformity. Neurological: Alert and oriented to person, place, and time. Skin: Skin is warm and dry. No rash noted. Not diaphoretic. No erythema. Psychiatric: Normal mood and affect. Current Facility-Administered Medications: ??? acetaminophen (TYLENOL) tablet 1,000 mg, 1,000 mg, oral, Q6H MONET, 1,000 mg at 07/15/20 1057 ??? albuterol 2.5 mg/0.5 mL nebulizer solution 2.5 mg, 2.5 mg, nebulization, Q4H MONET (RT), 2.5 mg at 07/15/20 0846 AND ipratropium (ATROVENT) 0.02 % nebulizer solution 0.5 mg, 0.5 mg, nebulization, Q4H MONET (RT), 0.5 mg at 07/15/20 0847 ??? ciprofloxacin (CIPRO) tablet 500 mg, 500 mg, oral, BID - special, 500 mg at 07/15/20 0501 ??? folic acid (FOLVITE) tablet 1 mg, 1 mg, oral, QAM, 1 mg at 07/15/20 0808 ??? heparin 5,000 unit/mL injection 5,000 Units, 5,000 Units, subcutaneous, Q8H MONET, 5,000 Units at07/15/20 0501 ??? levalbuterol (XOPENEX) 1.25 mg/3 mL nebulizer solution 1.25 mg, 1.25 mg, nebulization, Q4H PRN (RT), 1.25 mg at 07/14/20 1027 ??? metoprolol tartrate (LOPRESSOR) immediate release tablet 25 mg, 25 mg, oral, BID, 25 mg at 07/15/20 0808 ??? metroNIDAZOLE (FLAGYL) tablet 500 mg, 500 mg, oral, TID, 500 mg at 07/15/20 0807 ??? ondansetron (ZOFRAN) injection 4 mg, 4 mg, intravenous, Q6H PRN ??? pantoprazole DR (PROTONIX) extended release tablet 40 mg, 40 mg, oral, QAM, 40 mg at 07/15/20 0808 ??? ramelteon (ROZEREM) tablet 8 mg, 8 mg, oral, Nightly PRN, 8 mg at 07/14/20 2222 ??? senna-docusate (PERICOLACE) 8.6-50 mg per tablet 1 tablet, 1 tablet, oral, BID, 1 tablet at 07/15/20 0808 ??? terazosin (HYTRIN) capsule 10 mg, 10 mg, oral, Nightly, 10 mg at 07/14/20 2019 ??? thiamine (VITAMIN B1) tablet 100 mg, 100 mg, oral, QAM, 100 mg at 07/15/20 0808 ??? traMADoL (ULTRAM) tablet 50 mg, 50 mg, oral, Q4H PRN, 50 mg at 07/15/20 1057 Lab/Radiology/Diagnostic Review: Laboratory studies from the past 24 hours were reviewed and significant for Lab Results Component Value Date WBC 9.2 07/14/2020 WBC 10.0 (H) 07/14/2020 WBC 6.5 02/20/2020 Lab Results Component Value Date HGB 12.6 (L) 07/14/2020 HGB 13.7 07/14/2020 HGB 11.3 (L) 02/20/2020 Lab Results Component Value Date HCT 36.5 (L) 07/14/2020 HCT 39.3 07/14/2020 HCT 34.3 (L) 02/20/2020 Lab Results Component Value Date CREATININE 0.79 (L) 07/14/2020 CREATININE 0.77 (L) 07/14/2020 CREATININE 0.81 06/22/2020 Lab Results Component Value Date BILITOT 0.6 07/14/2020 BILITOT 0.5 07/14/2020 BILITOT 0.5 06/22/2020 Lab Results Component Value Date ALKPHOS 91 07/14/2020 ALKPHOS 88 07/14/2020 ALKPHOS 87 06/22/2020 Lab Results Component Value Date AST 23 07/14/2020 AST 17 07/14/2020 AST 16 06/22/2020 Lab Results Component Value Date ALT 14 07/14/2020 ALT 9 07/14/2020 ALT 9 06/22/2020 Lab Results Component Value Date INR 1.1 07/13/2020 INR 1.6 (H) 02/21/2020 INR 1.2 02/20/2020 Recent Radiology studies were reviewed and significant for: Vitals: 24hr Min/Max: Temp Min: 36.3 ??C (97.3 ??F) Max: 37.2 ??C (98.9 ??F) Pulse Min: 64 Max: 117 BP Min: 141/88 Max: 193/123 Resp Min: 18 Max: 20 SpO2 Min: 72 % Max: 99 % Most Recent: Vitals: 07/15/20 0845 BP: Pulse: Resp: Temp: SpO2: 99% I/O last 2 completed shifts: In: 300 [P.O.:300] Out: 1095 [Urine:995; Drains:100] I/O this shift: In: 0 Out: 175 [Urine:175] Recent Interventions: Assessment/Plan 1. History of Cholecystitis, cholangitis, hepatic abscess s/p percutaneous drainage, abx now s/p open subtotal fenestrating cholecystectomy - regular diet - HLIV - continue cipro/ flagyl for 5 day course - resume eliquis - bowel regimen - monitor drain output; anticipate removal prior to discharge tomorrow - ambulate in On license of [facility] LORI Wilson 111:27 AM * Naz Stoner - 07/14/2020 12:45 PM CDT Spiritual Care Note , 07/14/20 Doughnut Machine OperatorCurry Osborn [phone] 07/14/20 1200 Time Spent Start Time 1157 Stop Time 1200 Time Calculation (min) 3 min Patient Spiritual Assessment Spirituality Assessed Focus of Care Clinical Encounter Type Visited With Patient Response Type Routine visit Routine Visit Introduction Reason for visit Support Outcomes and Interventions Outcomes Preserve dignity and respect;Demonstrating care and respect;Establish rapport and connectedness Interventions Offer spiritual/synagogue support * Sharmaine Hurtado OT - 07/14/2020 10:46 AM CDT Occupational Therapy 07/14/20 1045 General OT Missed Visit Reason Patient declined (despite max education on role of OT ) * Melvi Lopez MD - 07/14/2020 7:11 AM CDT [facility] Surgery Daily Progress Note Jania Guajardo : 1950 OVERVIEW: Jania Guajardo is a 70 y.o. male who presented with a history of perforated cholecystitis s/p perc jaydon tube. He underwent Procedure(s) (LRB): CHOLECYSTECTOMY (N/A), open subtotal fenestrating on 07/13/2020 He is 1 Day Post-Op Subjective NAEON Afib with RVR to 130, started on IV lopressor with improvement in HR Labs pending this monring DAVEY output 43 cc ROS All other systems negative except for minimal incisional pain Objective: Blood pressure (!) 171/95, pulse 106, temperature 37 ??C (98.6 ??F), temperature source Oral, resp.rate 18, height 180.3 cm (5' 11 ), weight 87.5 kg (193 lb), SpO2 97 %. Temp: [36.6 ??C (97.9 ??F)-37 ??C (98.6 ??F)] 37 ??C (98.6 ??F) Pulse: [63-144] 106 BP: (143-182)/(90-122) 171/95 Resp: [14-18] 18 SpO2: [92 %-100 %] 97 % I and Os: I/O last 3 completed shifts: In: 2100 [P.O.:200; I.V.:1900] Out: 1143 [Urine:1050; Drains:43; Blood:50] No intake/output data recorded. Scheduled Meds:acetaminophen, 1,000 mg, oral, Q6H MONET ciprofloxacin, 500 mg, oral, BID - special folic acid, 1 mg, oral, QAM heparin, 5,000 Units, subcutaneous, Q8H MONET metoprolol (LOPRESSOR) tablet/capsule, 25 mg, oral, BID metroNIDAZOLE, 500 mg, oral, TID pantoprazole DR, 40 mg, oral, QAM terazosin, 10 mg, oral, Nightly thiamine, 100 mg, oral, QAM Continuous Infusions: PRN Meds:.levalbuterol ??? ondansetron ??? oxyCODONE Exam: Constitutional: Appears comfortable. No acute distress. Alert and oriented x 3 Resp: Good inspiratory effort, symmetric chest wall movements CVS:. Well perfused. Abdomen: Soft, non distended, appropriately tender. Minimal incisional pain. Incision with dressingwith mild shadowing. Drain SS Neuro: No focal deficits. Motor strength grossly normal all 4 extremities Extremities: Warm, No significant edema Diagnostic Findings: Recent Labs Lab Units 07/13/20 0809 POC GLUCOSE MONITOR mg/dL 98 No lab exists for component: NRBCX, LYMPHSPCT, EOSINOPCT, LYMPHABSMAN, EOSINOABS Recent Labs Lab Units 07/13/20 0809 INR 1.1 Assessment/Plan: Jania Guajardo is a 70 y.o. male who is status post Procedure(s) (LRB): CHOLECYSTECTOMY (N/A), open subtotal fenestrating on 07/13/2020 - follow up labs this morning - CLD, ADAT to regular diet - HLIV when tolerating - restart home metoprolol - continue cipro/flagyl - follow up OR cultures - multimodal pain regimen: tylenol, celebrex, gabapentin, lidocaine patches - remove Coombs catheter - SQH for DVT ppx Electronic Signature: Melvi Lopez MD Cosigned by Eugene Otaes MD at 07/14/2020 8:42 AM CDT * Little Gabriel MD - 07/13/2020 4:40 PM CDT [facility] Surgery Postop Check Subjective POD 0 s/p exploratory laparotomy, evacuation and drainage of intraabdominal abscess, subtotal fenestrating cholecystectomy. Pain well controlled. Denies chest pain, shortness of breath, nausea, or emesis. In A-fib. Objective BP (!) 165/113 Pulse (!) 128 Temp 36.1 ??C (97 ??F) (Temporal) Resp 14 SpO2 100% I/O last 3 completed shifts: In: 1300 [I.V.:1300] Out: 470 [Urine:400; Drains:20; Blood:50] No intake/output data recorded. Physical Exam: General: NAD ENT: NCAT Lungs: Unlabored breathing on 3L NC Cardiac: tachycardic Abdomen: Soft, appropriately tender, moderately distended. Abdominal binder in place. RUQ drain with sang output. Output by Drain (mL) 07/11/20699 - 07/11/20 18507/11/201899 - 07/12/20 0659 07/12/20699 - 07/12/20 18507/12/201899 - 07/13/20 0659 07/13/20699 - 07/13/20 18507/13/201899 - 07/13/202017 Closed/Suction/Open Drain 1 Right RUQ Other (Comment) 19 Fr. 20 Wound: Midline superior dressing (airstrip) with minimal shadowing. Lateral drain dressing with some shadowing. No erythema/purulence/signs of fluid collection. Extremities: Warm well perfused. No edema. Neurologic: Nonfocal and grossly intact. Psychiatric: Normal mood and affect. Assessment 70 y.o. male POD 0 s/p exploratory laparotomy, evacuation and drainage of intraabdominal abscess, subtotal fenestrating cholecystectomy. Plan [ ] Abx: Cipro/Flagyl [ ] Activity/Positioning: Up ad mireille as tolerated [ ] Anticoagulation: MONET [ ] Diet: ADAT [ ] Drains: 1-DAVEY (R) [ ] Labs/Monitoring: AM labs [ ] Pain: POPM [ ] Therapy: PT/OT [ ] Dispo: Floor [ ] Other: Telemetry Little Gabriel MD Cosigned by Eugene Oates MD at 07/14/2020 5:44 AM CDT documented in this encounter H&P Notes * Eugene Oates MD - 07/13/2020 6:43 AM CDT I have reviewed the H&P, examined the patient, and endorse the findings as written. Plan of Care : Based on the above findings, I consider Jania Guajardo to be an acceptable risk for : Procedure(s): CHOLECYSTECTOMY Source Note - Eugene Oates MD - 06/13/2020 1:45 PM ORDAINED MINISTER Images from the original note were not included. Eugene Oates M.D., F.A.C.S. Chief, Section of Surgical Oncology irs agent [facility] - voice - fax USPS Mailing Address: Overnight Mailing Address: [address] [place] [address] [address] [place] [address], [address] [place], [place] [address] [place], [place] [address] FOLLOW-UP EVALUATION DATE OF VISIT: 06/13/20 REASON FOR VISIT: Acute cholecystitis requiring gallbladder drainage, abdominal wall abscess, hospital follow-up. Consult requested by Dr. Jean-Claude Crawford, *. HISTORY OF PRESENT ILLNESS: Mr. Guajardo is a 70 y.o. male who was an inpatient from 12/18/2019 to 12/28/2019 after he was transferred from an outside hospital for perforated cholecystitis. His hospital course is summarized as follows: Presenting Problem/History of Present Illness: ??Jania Guajardo??is a 69 y.o.??w/ a h/o acute cholecystitis c/b recurrent gallbladder abscesses requiring percutaneous drainage, who now??presents as an OSH transfer with an abdominal wall abscess. ?? The patient initially??[facility]in July, with acute cholecystitis. During evaluation at the hospital, ??he was found to be in AFib with RVR??and later developed??alcohol withdrawal. Determined??to be??a poor candidate for surgery, he was??was treated with antibiotics and improved.??In September, he presented with similar symptoms as his prior episode and was??found to havean abscess in the gall bladder fossa??secondary to gallbladder perforation, requiring antibiotics and multiple percutaneous drainages. His last drain was removed a few weeks ago. Prior to admission, Mr. Guajardo worsening pain and??induration on the skin of his RUQ that??intermittently??drains??reddish- rodriguez dischage. He was seen at the OSH where??he was noted to be non- leukocytotic, and afebrile. A??CT A/P with contrast??was noted to have a large multilocular abscess along the RU abdominal wall. Ofnote the patient has a history of alcohol abuse, drinking 3 4oz drinks of Tequila daily prior to a h ospitalization in July? Hospital Course: Mr. Guajardo was admitted directly to the [facility] floor. His WBCs and LFTs were normal on arrival. He was started on empiric cefepime and flagyl. His former drain site in the mid abdomen was opened and packed. VIR was consulted and performed percutaneous drainage of the RUQ abscess; cultures from aspirate ultimately grew MDR E. coli.His antibiotics were changed to meropenem based on sensitivities to complete a 10 day course. His WBC remained normal throughout and he was afebrile. He had a RUQ ultrasound for surgical planning which showed an irregular thickened gallbladder with stones and sludge and pericholecystic fluid. Mr. Guajardo was discharged to [facility] and I saw him in follow-up in the fall. At that time, he hadnon-bilious drain output and his drain was ultimately removed by interventional radiology in February,. He then completed a course of antibiotics. A CT scan in March, showed resolution of his fluid collections and he was doing well at that time. Since that time, Mr. Guajardo has been doing well. Still with sometimes bilious drainage versus purulent. Changes pad daily. Stable weight, normal bowel/bladder function. Mr. Guajardo underwent a CT scan of the abdomen and pelvis today, which I ordered and have personally reviewed, demonstrating derease in the abdominal wall and gallbladder abscess. The implications of these imaging findings and significance for Mr. Guajardo's diagnosis include further treatment and follow-up recommendations and were discussed with Mr. Guajardo. Mr. Guajardo underwent recent blood work, which I have personally reviewed. This includes: CBC: Lab Results Component Value Date WBC 6.5 02/20/2020 HGB 11.3 (L) 02/20/2020 HCT 34.3 (L) 02/20/2020 MCV 95.0 02/20/2020 LABPLAT 163 02/20/2020 BMP: Lab Results Component Value Date GLUCOSE 168 02/21/2020 CALCIUM 8.7 02/21/2020 SODIUM 136 02/21/2020 POTASSIUM 3.3 02/21/2020 CO2 32 02/21/2020 CHLORIDE 101 02/21/2020 BUNSER 9 02/21/2020 CREATININE 0.9 06/13/2020 LFTs: Lab Results Component Value Date ALT 12 12/20/2019 AST 26 12/20/2019 ALKPHOS 95 12/20/2019 BILITOT 0.2 12/20/2019 Albumin Lab Results Component Value Date ALBUMIN 3.1 (L) 02/19/2020 PAST MEDICAL HISTORY: Past Medical History: Diagnosis Date ??? Atrial fibrillation (CMS/HCC) ??? BPH (benign prostatic hyperplasia) ??? CHF (congestive heart failure) (CMS/HCC) ??? Cholecystitis ??? GERD (gastroesophageal reflux disease) ??? Hyperlipidemia ??? Hypertension ??? TIA (transient ischemic attack) PAST SURGICAL HISTORY: Past Surgical History: Procedure Laterality Date ??? ABSCESS CATHETER INJECTION N/A 12/25/2019 ??? ABSCESS CATHETER INJECTION N/A 01/04/2020 ??? ABSCESS CATHETER INJECTION N/A 01/15/2020 ??? CHOLANGIOGRAM THROUGH EXISTING CATHETER N/A 02/04/2020 ??? FLUID DRAIN SOFT TISSUE N/A 12/19/2019 ALLERGIES: Penicillins MEDICATIONS: Current Outpatient Medications: ??? apixaban (ELIQUIS) 5 mg tablet, Take 1 tablet (5 mg total) by mouth every 12 (twelve) hours, Disp: 60 tablet, Rfl: 0 ??? cholecalciferol (VITAMIN D-3) 5,000 unit tablet, , Disp: , Rfl: ??? folic acid (FOLVITE) 1 mg tablet, Take 1 tablet (1 mg total) by mouth daily, Disp: 30 tablet, Rfl: 0 ??? furosemide (LASIX) 40 mg tablet, Take 1 tablet (40 mg total) by mouth 2 (two) times a day, Disp: 60 tablet, Rfl: 11 ??? levalbuterol (XOPENEX) 1.25 mg/3 mL nebulizer solution, Take 1.25 mg by nebulization 3 (three) times a day, Disp: , Rfl: ??? lisinopriL (PRINIVIL,ZESTRIL) 40 mg tablet, Take 1 tablet (40 mg total) by mouth daily, Disp: 30 tablet, Rfl: 11 ??? metoprolol tartrate (LOPRESSOR) 50 mg immediate release tablet, Take 1 tablet (50 mg total) by mouth 2 (two) times a day, Disp: 60 tablet, Rfl: 0 ??? ondansetron ODT (ZOFRAN-ODT) 4 mg disintegrating tablet, Take 1 tablet (4 mg total) by mouth every 4 (four) hours as needed for nausea or vomiting, Disp: 20 tablet, Rfl: ??? pantoprazole DR (PROTONIX) 40 mg EC tablet, Take 1 tablet (40 mg total) by mouth daily, Disp: 30 tablet, Rfl: 11 ??? polyethylene glycol (MIRALAX) 17 gram packet, Take 17 g by mouth daily, Disp: , Rfl: ??? potassium chloride ER (KLOR-CON) 20 mEq CR tablet, Take 2 tablets (40 mEq total) by mouth daily, Disp: 60 tablet, Rfl: 11 ??? terazosin (HYTRIN) 10 mg capsule, Take 1 capsule (10 mg total) by mouth nightly, Disp: 30 capsule, Rfl: 0 ??? thiamine (VITAMIN B1) 100 mg tablet, Take 100 mg by mouth daily, Disp: , Rfl: No current facility-administered medications for this visit. SOCIAL HISTORY: ??? Smoking History: reports that he has been smoking. He has been smoking about 1.00 pack per day.He has never used smokeless tobacco. ??? Alcohol History: reports current alcohol use. ??? Drug use: has no history on file for drug use. ??? Lives [place] [id number]. Employed as retired. No limitations on activity. He is able to ambulate without difficulty and can walk up 0 flights of stairs before becoming short of breath. ??? The patient is accompanied today by his FAMILY HISTORY: Mr. Guajardo's family history includes Lung cancer in his father.. Of note, there is no family history of eatrxf-dmotkunlz-tsvjsot disease or cancer. REVIEW OF SYSTEMS: The review of systems is as reported in the history of present illness and as recorded on the patient information worksheet, which I have personally reviewed. All other systems are as follows: ??? General: No fevers, no chills. ??? HEENT: No visual symptoms, no dysphagia, no masses. ??? Respiratory: No cough, no SOB, no dyspnea. ??? CV: No chest pain, no palpitations. ??? GI: No difficulty or pain with bowel movements, no GI bleeding. ??? : No difficulty or pain with urination. ??? Skin: No skin lesions or masses. ??? Musculoskeletal: No joint or muscle pain, normal range of motion. ??? Neurological: No numbness or weakness. ??? Psychiatric: No changes in mood or affect, no change in mentation. PHYSICAL EXAMINATION: VITAL SIGNS: Weight - pounds, Blood pressure - , Heart rate - bpm, Temperature - ??F. GENERAL: Alert and oriented x 3 in no apparent distress. HEENT: PERRLA, EOMI. No masses. Trachea midline, thyroid normal. CHEST: Clear to auscultation bilaterally. HEART: Regular rate and rhythm. No murmurs. ABDOMEN: Soft, nontender, nondistended with no masses or hernias. No hepatosplenomegaly. No reboundor guarding. Small area of draining granulation tissue in the right upper quadrant. EXTREMITIES: Warm and well perfused. 2+ distal pulses. NEUROLOGIC: No focal deficits. SKIN: No skin lesions. No cervical, supraclavicular, axillary, or inguinal adenopathy. PSYCHIATRIC: Within normal limits. REVIEW OF LABORATORY AND RADIOGRAPHIC STUDIES: See HPI. ASSESSMENT: 70 y.o. male with complicated cholecystitis treated with several percutanous drains that has been recurrent in nature. Based on his imaging from today, he has a continued, but improving abscess with a draining skin component. I believe at this time we should plan for a cholecystectomy, likely subtotal/fenestrating, to prevent further complications of cholecystitis. PLAN: I have recommended that Mr. Guajardo undergo an open cholecystectomy. We discussed this operation, including the risks, benefits, and alternatives to surgical treatment. Specifically, we discussed the risk of , biliary leak requiring drain placement or re-operative intervention, risk of post-operative bleeding, infection, and wound-related complications. We further discussed common scenarios encountered after GI surgery, including delayed gastric emptying, ileus, dumping syndrome, and other gastrointestinal issues, including the management of these problems. We also discussed risks related to general anesthesia. We discussed the expected post-operative course, including the expected length of stay, time to beginning PO intake, and the follow-up involved. I spencer several pictures andprovided Mr. Guajardo with literature and several websites to obtain more information (ACS, NCI, ASCO).After our discussion, Mr. Guajardo decided to proceed with surgery. Informed consent was obtained in clinic today. We will proceed with surgery. We will arrange for the necessary pre-operative testing. Ianswered all of Mr. Guajardo's questions to his satisfaction. . I answered all of Mr. Guajardo's questions to his satisfaction. My total encounter time on 06/13/2020 was 51 minutes which was spent in the activities documented in the note. This includes time spent prior to the visit and after the visit in direct care of the patient. This time does not include time spent in any separately reportable services. Eugene Oates M.D., F.A.C.S. Chief, Section of Surgical Oncology irs agent CC: Patient Care Team: Jean-Claude Crawford MD as PCP - General (Family Medicine) Jean-Claude Crawford MD (Family Medicine) Sales Promoter completed by [employer]. Sales Promoter variances may occur. INED MINISTER documented in this encounter Consult Notes * Zhao Zapien, RD - 07/14/2020 5:42 PM CDTAssociated Order(s): IP CONSULT TO NUTRITION SERVICES Nutrition Assessment Reason for Assessment: Initial Nutrition Assessment and Consult/Referral Encounter Date: 07/14/20 5:42 PM Patient is a 70 y.o. male with chief complaint of cholecystits. LOS is 1 days. 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 Objective Past Medical History: Diagnosis Date ??? Atrial fibrillation (CMS/HCC) ??? Blind legally blind ??? BPH (benign prostatic hyperplasia) ??? CHF (congestive heart failure) (CMS/HCC) ??? Cholecystitis ??? GERD (gastroesophageal reflux disease) ??? Hyperlipidemia ??? Hypertension ??? TIA (transient ischemic attack) Past Surgical History: Procedure Laterality Date ??? ABSCESS CATHETER INJECTION N/A 12/25/2019 ??? ABSCESS CATHETER INJECTION N/A 01/04/2020 ??? ABSCESS CATHETER INJECTION N/A 01/15/2020 ??? CHOLANGIOGRAM THROUGH EXISTING CATHETER N/A 02/04/2020 ??? FLUID DRAIN SOFT TISSUE N/A 12/19/2019 Social History Tobacco Use ??? Smoking status: Current Every Day Smoker Packs/day: 1.00 Types: Cigarettes Start date: 1965 ??? Smokeless tobacco: Never Used Substance Use Topics ??? Alcohol use: Yes Comment: limited Family History Problem Relation Age of Onset ??? Lung cancer Father ??? Anesthesia problems Neg Hx Anthropometrics: Wt Readings from Last 3 Encounters: 07/14/20 87.5 kg (193 lb) 07/11/20 86.6 kg (190 lb 14.7 oz) 06/15/20 85.3 kg (188 lb) Anthropometrics Weight: 87.5 kg (193 lb) Admission Weight : 87.6 kg Weight Change: -0.04 kg (-0.10 lbs) IBW/kg (Calculated) : 78 kg Height: 180.3 cm (5' 11 ) Weight in (lb) to have BMI = 25: 178.9 BMI (Calculated): 26.9 Nutrition Needs Calculations: Calculated Energy Needs Using Equations Weight: 87.5 kg (193 lb) Height: 180.3 cm (5' 11 ) Estimated Protein Needs Type of Weight Used for Estimated Protein : [place] Protein Needs Based on g/k.3 Total Protein Estimated Needs (gm): 101.4 Kcal/kg Type of Weight Used for Estimated Kcals: Admission Kcal/k Total Kcal/kg Estimated Needs : 1751.8 Vital Signs: BP: (!) 154/106 Temp: 36.3 ??C (97.3 ??F) Pulse: 112 Resp: 18 SpO2: 93 % Medications: Scheduled Meds: acetaminophen, 1,000 mg, oral, Q6H MONET albuterol, 2.5 mg, nebulization, Q4H MONET (RT) And ipratropium, 0.5 mg, nebulization, Q4H MONET (RT) ciprofloxacin, 500 mg, oral, BID - special folic acid, 1 mg, oral, QAM heparin, 5,000 Units, subcutaneous, Q8H MONET metoprolol (LOPRESSOR) tablet/capsule, 25 mg, oral, BID metroNIDAZOLE, 500 mg, oral, TID pantoprazole DR, 40 mg, oral, QAM terazosin, 10 mg, oral, Nightly thiamine, 100 mg, oral, QAM Continuous Infusions: PRN Meds: levalbuterol ??? ondansetron ??? traMADoL Lab Review: Sodium Date Value Ref Range Status 07/14/2020 139 135 - 145 mmol/L Final Potassium, pl Date Value Ref Range Status 07/14/2020 4.0 3.3 - 4.9 mmol/L Final BUN Date Value Ref Range Status 07/14/2020 13 8 - 25 mg/dL Final Creatinine Date Value Ref Range Status 07/14/2020 0.77 (L) 0.80 - 1.30 mg/dL Final Phosphorus, pl Date Value Ref Range Status 07/14/2020 3.9 2.3 - 4.5 mg/dL Final Albumin Date Value Ref Range Status 07/14/2020 3.1 (L) 3.5 - 5.0 g/dL Final Magnesium Date Value Ref Range Status 07/14/2020 1.8 1.4 - 2.5 mg/dL Final Calcium Date Value Ref Range Status 07/14/2020 9.0 8.5 - 10.3 mg/dL Final ALT Date Value Ref Range Status 07/14/2020 9 7 - 55 Units/L Final AST Date Value Ref Range Status 07/14/2020 17 10 - 50 Units/L Final Alk phos Date Value Ref Range Status 07/14/2020 88 40 - 130 Units/L Final No results found for: HGBA1C, HDL, LDLCALC, CHOL, TRIG Nursing Assessment: Intake/Output Summary (Last 24 hours) at 07/14/2020 1742 Last data filed at 07/14/2020 1236 Gross per 24 hour Intake 1100 ml Output 1103 ml Net -3 ml Gastrointestinal Gastrointestinal (WDL): Exceptions to WDL Abdomen Inspection: Tenderness GI Symptoms: None Lew Scale Score: 19 Skin Integrity: Surgical incision Type of Wound (LDA): Surgical site Dietary Orders (From admission, onward) Start Ordered 07/15/20 0700 Oral Nutrition Supplements Select Supplement: Ensure Clear - Apple, VARY/multiple Flavor All Meals Question Answer Comment Select Supplement: Ensure Clear - Apple Select Supplement: VARY/multiple Flavor 07/14/20 1742 07/14/20 0759 Adult Diet Regular Diet effective now Question: (BJ) Diet type Answer: Regular 07/14/20 0758 Impression: Pt reports good appetite prior to admission but seemed somewhat confused with time frame of before and since his surgery. May have been communication issue with his hearing, but he is also on a bed alarm and didn't know what to do after getting up and it was going off. Per records he has gained 20#since admission in December. He knew it had gone up but didn't know an amount. Denies any trouble with intake of regular diet but couldn't tell me how much of his lunch he had eaten or what it was. Only likes Ensure clear. Will add to trays while inpatient to help assure adequate intake. NUTRITION DIAGNOSIS Nutrition Diagnosis 1: Increased nutrient needs (protein) Related to: Recent surgery Evidenced by: Patient interview, Physical finding INTERVENTION Continue with regular diet. Ensure clear TID. Encourage good intake, protein foods. RD will continue to follow. GOALS / MONITORING: Goals: Oral intake to meet 75% estimated nutritional needs by next assessment Interventions: Encouragement, Meals and snacks, Medical food supplement Monitoring and Evaluation: Appetite, Plan of care, PO intake, Labs Zhao Zapien RD LD CDE [phone]. Weekends [phone] documented in this encounter Nursing Notes * Rush Pearson RN - 07/15/2020 6:55 PM CDT Pt reported feeling short of breath and feeling as though his heart is racing. This RN assessed thepatient and found his O2 sat to be 95% and but with an irregular heart beat. The surgical team was notified and stated that they would come assess the patient in person shortly. Rush Pearson RN 07/15/2020 documented in this encounter Miscellaneous Notes * Plan of Care - Rush Pearson RN - 07/16/2020 11:28 AM CDT Goals: Clinical Goals for the Shift: Monitor VS, I&O, control pain Summary: Problem: Health Behavior: Goal: Understanding of discharge needs will improve Outcome: Adequate for Discharge Problem: Lack of Knowledge: Goal: Ability to state ways to decrease the risk of falls will improve Outcome: Adequate for Discharge Problem: Safety: Goal: Will remain free from falls Outcome: Adequate for Discharge Goal: Will remain free from injury from falls Outcome: Adequate for Discharge Goal: Will remain free from falls and injury in home environment Outcome: Adequate for Discharge Problem: Lack of Knowledge: Goal: Ability to state ways to decrease the risk of falls will improve Outcome: Adequate for Discharge Problem: Safety: Goal: Will remain free from falls Outcome: Adequate for Discharge Goal: Will remain free from injury from falls Outcome: Adequate for Discharge Goal: Will remain free from falls and injury in home environment Outcome: Adequate for Discharge Problem: Activity: Goal: Risk for activity intolerance will decrease Outcome: Adequate for Discharge Problem: Lack of Knowledge: Goal: Knowledge of disease or condition will improve Outcome: Adequate for Discharge Goal: Ability to state and carry out methods to decrease the pain will improve Outcome: Adequate for Discharge Problem: Nutritional: Goal: Nutritional status will be supported Outcome: Adequate for Discharge Problem: Fluid Volume: Goal: Maintenance of adequate hydration will improve Outcome: Adequate for Discharge Problem: Health Behavior: Goal: Ability to state signs and symptoms to report to health care provider will improve Outcome: Adequate for Discharge Problem: Physical Regulation: Goal: Complications related to the disease process, condition or treatment will be avoided or minimized Outcome: Adequate for Discharge Goal: Ability to maintain clinical measurements within normal limits will improve Outcome: Adequate for Discharge Problem: Sensory: Goal: Ability to identify factors that increase the pain will improve Outcome: Adequate for Discharge Goal: Ability to notify healthcare provider of pain before it becomes unmanageable or unbearable will improve Outcome: Adequate for Discharge Goal: Pain level will decrease Outcome: Adequate for Discharge Problem: Activity: Goal: Mobility will improve Outcome: Adequate for Discharge Problem: Lack of Knowledge: Goal: Understanding of ways to prevent future skin breakdown will improve Outcome: Adequate for Discharge Goal: Ability to identify appropriate dietary choices will improve Outcome: Adequate for Discharge Problem: Nutritional: Goal: Dietary intake will improve Outcome: Adequate for Discharge Goal: Ability to maintain a balanced intake and output will improve Outcome: Adequate for Discharge Problem: Skin Integrity: Goal: Risk for impaired skin integrity will decrease Outcome: Adequate for Discharge Goal: Ability to demonstrate warm and dry skin will improve Outcome: Adequate for Discharge Goal: Circulation will improve to fullest extent possible Outcome: Adequate for Discharge * Plan of Care - Karlee Goins RRT - 07/16/2020 8:34 AM CDT Patient on room air, has clear breathsounds and has no signs of respiratory distress at this time. Discontinued scheduled breathing treatments and kept the PRN per protocol. * Plan of Care - Mercedez Zafar RN - 07/15/2020 11:19 PM CDT Problem: Health Behavior: Goal: Understanding of discharge needs will improve Outcome: Progressing Problem: Lack of [...] injury in home environment Outcome: Progressing Problem: Activity: Goal: Risk for activity intolerance will decrease Outcome: Progressing Problem: Lack of Knowledge: Goal: Knowledge of disease or condition will improve Outcome: Progressing Goal: Ability to state and carry out methods to decrease the pain will improve Outcome: Progressing Problem: Nutritional: Goal: Nutritional status will be supported Outcome: Progressing Problem: Fluid Volume: Goal: Maintenance of adequate hydration will improve Outcome: Progressing Problem: Health Behavior: Goal: Ability to state signs and symptoms to report to health care provider will improve Outcome: Progressing Problem: Physical Regulation: Goal: Complications related to the disease process, condition or treatment will be avoided or minimized Outcome: Progressing Goal: Ability to maintain clinical measurements within normal limits will improve Outcome: Progressing Problem: Sensory: Goal: Ability to identify factors that increase the pain will improve Outcome: Progressing Goal: Ability to notify healthcare provider of pain before it becomes unmanageable or unbearable will improve Outcome: Progressing Goal: Pain level will decrease Outcome: Progressing Problem: Activity: Goal: Mobility will [...] improve to fullest extent possible Outcome: Progressing Goals: Clinical Goals for the Shift: Monitor VS, I&O, control pain Summary: * Plan of Care - Naun Yañez RN - 07/15/2020 5:34 PM CDT CM placed a call to the Pt at [phone] for initial interview completion, there was no answer. CM will f/u later. Case Management to follow for planning and referrals as needed. * Plan of Care - Deepthi Villeda RRT - 07/15/2020 5:19 PM CDT Patient ordered on Q4 DUO neb tx for wheezing, but has resolved. Plan to change tx to QID and continue to monitor. * Plan of Care - Rush Pearson RN - 07/15/2020 3:27 PM CDT Goals: Clinical Goals for the Shift: pain control, VSS, labs, drain care, comfort/rest Summary: Problem: Health Behavior: Goal: Understanding of discharge needs will improve Outcome: Progressing Problem: Lack of [...] injury in home environment Outcome: Progressing Problem: Activity: Goal: Risk for activity intolerance will decrease Outcome: Progressing Problem: Lack of Knowledge: Goal: Knowledge of disease or condition will improve Outcome: Progressing Goal: Ability to state and carry out methods to decrease the pain will improve Outcome: Progressing Problem: Nutritional: Goal: Nutritional status will be supported Outcome: Progressing Problem: Fluid Volume: Goal: Maintenance of adequate hydration will improve Outcome: Progressing Problem: Health Behavior: Goal: Ability to state signs and symptoms to report to health care provider will improve Outcome: Progressing Problem: Physical Regulation: Goal: Complications related to the disease process, condition or treatment will be avoided or minimized Outcome: Progressing Goal: Ability to maintain clinical measurements within normal limits will improve Outcome: Progressing Problem: Sensory: Goal: Ability to identify factors that increase the pain will improve Outcome: Progressing Goal: Ability to notify healthcare provider of pain before it becomes unmanageable or unbearable will improve Outcome: Progressing Goal: Pain level will decrease Outcome: Progressing Problem: Activity: Goal: Mobility will [...] Outcome: Progressing * Plan of Care - Deepthi Villeda RRT - 07/15/2020 8:50 AM CDT Patient was ordered on respiratory medications for wheezing. Patient tolerated treatment well. Plan - Continue treatment as ordered * Plan of Care - Libby Snowden RN - 07/14/2020 10:33 PM CDT Goals: Clinical Goals for the Shift: pain control, VSS, labs, drain care, comfort/rest Summary: Problem: Health Behavior: Goal: Understanding of discharge needs will improve Outcome: Progressing Problem: Lack of [...] injury in home environment Outcome: Progressing Problem: Activity: Goal: Risk for activity intolerance will decrease Outcome: Progressing Problem: Lack of Knowledge: Goal: Knowledge of disease or condition will improve Outcome: Progressing Goal: Ability to state and carry out methods to decrease the pain will improve Outcome: Progressing Problem: Nutritional: Goal: Nutritional status will be supported Outcome: Progressing Problem: Fluid Volume: Goal: Maintenance of adequate hydration will improve Outcome: Progressing Problem: Health Behavior: Goal: Ability to state signs and symptoms to report to health care provider will improve Outcome: Progressing Problem: Physical Regulation: Goal: Complications related to the disease process, condition or treatment will be avoided or minimized Outcome: Progressing Goal: Ability to maintain clinical measurements within normal limits will improve Outcome: Progressing Problem: Sensory: Goal: Ability to identify factors that increase the pain will improve Outcome: Progressing Goal: Ability to notify healthcare provider of pain before it becomes unmanageable or unbearable will improve Outcome: Progressing Goal: Pain level will decrease Outcome: Progressing Problem: Activity: Goal: Mobility will [...] Outcome: Progressing * Plan of Care - Brittany Guaman RRT - 07/14/2020 5:14 PM CDT Patient is scheduled to receive nebulizer treatments Q6. Patient bronchodilator RISK score is 8 Plan - Change to Q4 * Plan of Care - Naun Yañez RN - 07/14/2020 5:04 PM CDT CM placed a call to the pt at [phone] for initial interview completion, there was no answer. CM will f/u later. Case Management to follow for planning and referrals as needed.' * Plan of Care - Janna Guido RN - 07/14/2020 3:54 PM CDT Problem: Health Behavior: Goal: Understanding of discharge needs will improve Outcome: Progressing Goals: Clinical Goals for the Shift: pain control Summary: * Plan of Care - Josefina Jacob RN - 07/13/2020 11:24 PM CDT Problem: Health Behavior: Goal: Understanding of discharge needs will improve 07/13/2020 2324 by Josefina Jacob RN Outcome: Progressing 07/13/2020 2323 by Josefina Jacob RN Outcome: Progressing Problem: Lack of Knowledge: Goal: Ability to state ways to decrease the risk of falls will improve 07/13/2020 2324 by Josefina Jacob RN Outcome: Progressing 07/13/2020 2323 by Josefina Jacob RN Outcome: Progressing Problem: Safety: Goal: Will remain free from falls 07/13/2020 2324 by Josefina Jacob RN Outcome: Progressing 07/13/2020 2323 by Josefina Jacob RN Outcome: Progressing Goal: Will remain free from injury from falls 07/13/2020 2324 by Josefina Jacob RN Outcome: Progressing 07/13/2020 2323 by Josefina Jacob RN Outcome: Progressing Goal: Will remain free from falls and injury in home environment 07/13/2020 2324 by Josefina Jacob RN Outcome: Progressing 07/13/2020 2323 by Josefina Jacob RN Outcome: Progressing Problem: Lack of Knowledge: Goal: Ability to state ways to decrease the risk of falls will improve 07/13/2020 2324 by Josefina Jacob RN Outcome: Progressing 07/13/2020 2323 by Josefina Jacob RN Outcome: Progressing Problem: Safety: Goal: Will remain free from falls 07/13/2020 2324 by Josefina Jacob RN Outcome: Progressing 07/13/2020 2323 by Josefina Jacob RN Outcome: Progressing Goal: Will remain free from injury from falls 07/13/2020 2324 by Josefina Jacob RN Outcome: Progressing 07/13/2020 2323 by Josefina Jacob RN Outcome: Progressing Goal: Will remain free from falls and injury in home environment 07/13/2020 2324 by Josefina Jacob RN Outcome: Progressing 07/13/2020 2323 by Josefina Jacob RN Outcome: Progressing Problem: Activity: Goal: Risk for activity intolerance will decrease 07/13/2020 2324 by Josefina Jacob RN Outcome: Progressing 07/13/2020 2323 by Josefina Jacob RN Outcome: Progressing Problem: Lack of Knowledge: Goal: Knowledge of disease or condition will improve 07/13/2020 2324 by Josefina Jacob RN Outcome: Progressing 07/13/2020 2323 by Josefina Jacob RN Outcome: Progressing Goal: Ability to state and carry out methods to decrease the pain will improve 07/13/2020 2324 by Josefina Jacob RN Outcome: Progressing 07/13/2020 2323 by Josefina Jacob RN Outcome: Progressing Problem: Nutritional: Goal: Nutritional status will be supported 07/13/2020 2324 by Josefina Jacob RN Outcome: Progressing 07/13/2020 2323 by Josefina Jacob RN Outcome: Progressing Problem: Fluid Volume: Goal: Maintenance of adequate hydration will improve 07/13/2020 2324 by Josefina Jacob RN Outcome: Progressing 07/13/2020 2323 by Josefina Jacob RN Outcome: Progressing Problem: Health Behavior: Goal: Ability to state signs and symptoms to report to health care provider will improve 07/13/2020 2324 by Josefina Jacob RN Outcome: Progressing 07/13/2020 2323 by Josefina Jacob RN Outcome: Progressing Problem: Physical Regulation: Goal: Complications related to the disease process, condition or treatment will be avoided or minimized 07/13/2020 2324 by Josefina Jacob RN Outcome: Progressing 07/13/2020 2323 by Josefina Jacob RN Outcome: Progressing Goal: Ability to maintain clinical measurements within normal limits will improve 07/13/2020 2324 by Josefina Jacob RN Outcome: Progressing 07/13/2020 2323 by Josefian Jacob RN Outcome: Progressing Problem: Sensory: Goal: Ability to identify factors that increase the pain will improve 07/13/2020 2324 by Josefina Jacob RN Outcome: Progressing 07/13/2020 2323 by Josefina Jacob RN Outcome: Progressing Goal: Ability to notify healthcare provider of pain before it becomes unmanageable or unbearable will improve 07/13/2020 2324 by Josefina Jacob RN Outcome: Progressing 07/13/2020 2323 by Josefina Jacob RN Outcome: Progressing Goal: Pain level will decrease 07/13/2020 2324 by Josefina Jacob RN Outcome: Progressing 07/13/2020 2323 by Josefina Jacob RN Outcome: Progressing Problem: Health Behavior: Goal: Understanding of discharge needs will improve 07/13/2020 2324 by Josefina Jacob RN Outcome: Progressing 07/13/2020 2323 by Josefina Jacob RN Outcome: Progressing Problem: Lack of Knowledge: Goal: Ability to state ways to decrease the risk of falls will improve 07/13/2020 2324 by Josefina Jacob RN Outcome: Progressing 07/13/2020 2323 by Josefina Jacob RN Outcome: Progressing Problem: Safety: Goal: Will remain free from falls 07/13/2020 2324 by Josefina Jacob RN Outcome: Progressing 07/13/2020 2323 by Josefina Jacob RN Outcome: Progressing Goal: Will remain free from injury from falls 07/13/2020 2324 by Josefina Jacob RN Outcome: Progressing 07/13/2020 2323 by Josefina Jacob RN Outcome: Progressing Goal: Will remain free from falls and injury in home environment 07/13/2020 2324 by Josefina Jacob RN Outcome: Progressing 07/13/2020 2323 by Josefina Jacob RN Outcome: Progressing Problem: Lack of Knowledge: Goal: Ability to state ways to decrease the risk of falls will improve 07/13/2020 2324 by Josefina Jacob RN Outcome: Progressing 07/13/2020 2323 by Josefina Jacob RN Outcome: Progressing Problem: Safety: Goal: Will remain free from falls 07/13/2020 2324 by Josefina Jacob RN Outcome: Progressing 07/13/2020 2323 by Josefina Jacob RN Outcome: Progressing Goal: Will remain free from injury from falls 07/13/2020 2324 by Josefina Jacob RN Outcome: Progressing 07/13/2020 2323 by Josefina Jacob RN Outcome: Progressing Goal: Will remain free from falls and injury in home environment 07/13/2020 2324 by Josefina Jacob RN Outcome: Progressing 07/13/2020 2323 by Josefina Jacob RN Outcome: Progressing Problem: Activity: Goal: Risk for activity intolerance will decrease 07/13/2020 2324 by Josefina Jacob RN Outcome: Progressing 07/13/2020 2323 by Josefina Jacob RN Outcome: Progressing Problem: Lack of Knowledge: Goal: Knowledge of disease or condition will improve 07/13/2020 2324 by Josefina Jacob RN Outcome: Progressing 07/13/2020 2323 by Josefina Jacob RN Outcome: Progressing Goal: Ability to state and carry out methods to decrease the pain will improve 07/13/2020 2324 by Josefina Jacob RN Outcome: Progressing 07/13/2020 2323 by Josefina Jacob RN Outcome: Progressing Problem: Nutritional: Goal: Nutritional status will be supported 07/13/2020 2324 by Josefina Jacob RN Outcome: Progressing 07/13/2020 2323 by Josefina Jacob RN Outcome: Progressing Problem: Fluid Volume: Goal: Maintenance of adequate hydration will improve 07/13/2020 2324 by Josefina Jacob RN Outcome: Progressing 07/13/2020 2323 by Josefina Jacob RN Outcome: Progressing Problem: Health Behavior: Goal: Ability to state signs and symptoms to report to health care provider will improve 07/13/2020 2324 by Josefina Jacob RN Outcome: Progressing 07/13/2020 2323 by Josefina Jacob RN Outcome: Progressing Problem: Physical Regulation: Goal: Complications related to the disease process, condition or treatment will be avoided or minimized 07/13/2020 2324 by Josefina Jacob RN Outcome: Progressing 07/13/2020 2323 by Josefina Jacob RN Outcome: Progressing Goal: Ability to maintain clinical measurements within normal limits will improve 07/13/2020 2324 by Josefina Jacob RN Outcome: Progressing 07/13/2020 2323 by Josefina Jacob RN Outcome: Progressing Problem: Sensory: Goal: Ability to identify factors that increase the pain will improve 07/13/2020 2324 by Josefina Jacob RN Outcome: Progressing 07/13/2020 2323 by Josefina Jacob RN Outcome: Progressing Goal: Ability to notify healthcare provider of pain before it becomes unmanageable or unbearable will improve 07/13/2020 2324 by Josefina Jacob RN Outcome: Progressing 07/13/2020 2323 by Josefina Jacob RN Outcome: Progressing Goal: Pain level will decrease 07/13/2020 2324 by Josefina Jacob RN Outcome: Progressing 07/13/2020 2323 by Josefina Jacob RN Outcome: Progressing Goals: Clinical Goals for the Shift: pain control Summary: * Plan of Care - Josefina Jacob RN - 07/13/2020 11:23 PM CDT Goals: Clinical Goals for the Shift: pain control Summary: * Perioperative Nursing Note - Tesha Benedict RN - 07/13/2020 7:31 PM CDT Hospitalist at bedside for pt assessment. Pt tachycardic, a fib on monitor. MD will order home metoprolol for pt. See MAR. * Perioperative Nursing Note - Tesha Beneditc RN - 07/13/2020 10:55 AM CDT Belongings retrieved from locker #30, sealed, and placed on bed. * Op Note - Eugene Oates MD - 07/13/2020 9:03 AM CDT Images from the original note were not included. OPERATIVE NOTE PRE-OPERATIVE DIAGNOSIS: Cholecystocutaneous fistula, chronic cholecystitis, intraabdominal abscess, cholelithiasis. POST-OPERATIVE DIAGNOSIS: Cholecystocutaneous fistula, chronic cholecystitis, intraabdominal abscess, cholelithiasis. SURGEON: Eugene Oates M.D. FIRST SUPERVISOR PAPER MACHINE: Josiane Magdaleno M.D. ANESTHESIA: General endotracheal. NAME OF OPERATION: 1. Exploratory laparotomy. 2. Evacuation and drainage of intraabdominal abscess. 3. Subtotal fenestrating cholecystectomy INDICATIONS FOR PROCEDURE: Mr. Guajardo is a 70 y.o. male with complicated cholecystitis treated with several percutanous drains that has been recurrent in nature. Based on his imaging from today, he has a continued, but improvingabscess with a draining skin component/fistula. We discussed cholecystectomy, likely subtotal/fenestrating, to prevent further complications of cholecystitis and to remove the source of chronic infection. When I saw him in clinic, we discussed open cholecystectomy. We discussed this operation, including the risks, benefits, and alternatives to surgical treatment. Specifically, we discussed the risk of , biliary leak requiring drain placement or re-operative intervention, risk of post-operative bleeding, infection, and wound-related complications. We further discussed common scenarios encountered after GI surgery, including delayed gastric emptying, ileus, dumping syndrome, and other gastrointestinal issues, including the management of these problems. We also discussed risks related to general anesthesia. We discussed the expected post-operative course, including the expected lengthof stay, time to beginning PO intake, and the follow-up involved. I spencer several pictures and provided Mr. Guajardo with literature and several websites to obtain more information (ACS, NCI, ASCO). Afterour discussion, Mr. Guajardo decided to proceed with surgery. Informed consent was obtained and he prese nted on the day of surgery. OPERATIVE FINDINGS: 1. Upon exploring the abdomen, there was a chronic abscess just below the fascia. 2. The gallbladder was shrunken down, and connected to the abscess cavity. 3. A subtotal fenestrated cholecystectomy was performed, removing the anterior wall the gallbladderand evacuating all the gallstones. 4. There was no bile seen, consistent with chronic cystic duct occlusion. 5. The abscess cavity was debrided and drained. 6. A DAVEY drain was left along the gallbladder and abscess cavity. 7. Mr. Guajardo tolerated the procedure well. DESCRIPTION OF PROCEDURE: The patient was brought to the operating room. A timeout procedure was performed per protocol. The patient was then identified by name and date of and agreed to the aforementioned procedure. Atthis time, the patient was transferred to the operating room table. General endotracheal anesthesiawas administered. The abdomen was then prepped and draped in the usual sterile fashion with chlorhexidine-based prep solution and an Ioban skin protector. The abdomen was entered through a right subcostal incision, incorporating the draining fistula site. The fascia was divided carefully down to the level of the abscess cavity, which was entered beneath the posterior rectus sheath. Cultures were taken. This was cloudy fluid, but non bilious. I was then able to expose the right lateral liver edge, and into the abdominal cavity safely. This was quite tedious, requiring lengthy dissection to avoid injury to the colon or duodenum. Ultimately, we were able to sweep the duodenum and the colon free and placed a Bookwalter retractor. There was an abscess cavity measuring approximately 7 x 5 cm beneath the fascia overlying the gallbladder. The gallbladder was shrunken down and contracted. We were able to debride the abscess cavityand evacuate the contents. I was then able to identify the distal gallbladder. This was entered using the electrocautery, and multiple gallstones were evaluated. There was no bile, consistent with chronic cystic duct occlusion. I did not feel that dissection in the triangle of Calot was possible, due to concern for injury to the portal structures. Thus, I felt that a subtotal fenestrated cholecystectomy was in order, to remove the gallstones and source of his chronic infection and fistula. The lateral and medial hernandez of the gallbladder were opened along the liver edge, and carried down to the safest level possible above the neck of the gallbladder. This portion of the gallbladder wall was removed and sent to pathology. Again, multiple gallstones were evaluated and passed off the field. There was no bile seen. The mucosa along the visible gallbladder was fulgurated using electrocautery. The abscess cavity was further debrided with electrocautery, and part of the abscess wall was removed. At this time, I felt that we had achieved the goals of the operation by removing the source of infection, the gallstones, and draining the abscess cavity. A 19 Sur[place]amese DAVEY drain was left through a separate stab incision in the right abdomen left along the gallbladder resection bed and the tail and into the abscess cavity. The abdomen was copiously irrigated with antibiotic-containing irrigation. Bleeding was controlled with electrocautery. Sponge, needle, and instrument counts were correct x 2 prior to closure. The abdominal fascia was then closed with #1 looped PDS in a running fashion in 2 layers.. The skin was closed loosely with skin clips and telfa zeferino, and a dry sterile dressing was applied. Mr. Guajardo tolerated the procedure well, was extubated in the operating room, and was transferred to the recovery room in stable condition. ANTIBIOTICS: Ancef was administered 15 minutes prior to skin incision, maintained throughout the case, and discontinued after the case. DVT PROPHYLAXIS: Sequential compression devices were placed on the bilateral lower extremities prior to the induction of anesthesia and maintained throughout the case. 5,000 unites of heparin was administered subcutaneously upon induction of anesthesia. SPECIMENS REMOVED: Gallbladder and gallstones ESTIMATED BLOOD LOSS: 100 mL INTRAVENOUS FLUIDS: 1,300 mL URINE OUTPUT: 150 mL SPONGE/INSTRUMENT/NEEDLE COUNTS: Correct x 2 at the end of the case. CONDITION ON DISCHARGE FROM OPERATING ROOM: Stable. ATTESTATION OF PRESENCE: Eugene Freire, the attending surgeon was present for the entire procedure; that is, from the induction of general anesthesia through the skin closure. ATTESTATION OF COMPLEXITY: Please note that this was a complex cholecystectomy due to the fact that there was chronic cholecystitis, cholecystocutaneous fistula, and previous percutaneous drainage of his gallbladder. He has less, it took significantly more time and attention to the dissection in detail to perform a safe and a cceptable fashion to avoid a bilio-vascular injury. Eugene Oates M.D., F.A.C.S. Chief, Section of Surgical Oncology [facility] - voice - fax USPS Mailing Address: Overnight Mailing Address: [address] [place] [address] [address] [facility], [address] [place], [place] [address] [place], [place] [address] documented in this encounter Plan of Treatment Not on file documented as of this encounter Procedures Procedure Name Priority Date/Time Associated Diagnosis Comments CBC WITHOUT DIFFERENTIAL Routine 07/14/2020 10:05 PM CDT PHOSPHORUS Routine 07/14/2020 10:05 PM CDT MAGNESIUM Routine 07/14/2020 10:05 PM CDT COMPREHENSIVE METABOLIC PANEL Routine 07/14/2020 10:05 PM CDT DIFFERENTIAL AUTO STAT 07/14/2020 6:1 3 AM CDT CBC WITH AUTO DIFFERENTIAL STAT 07/14/2020 6:13 AM CDT PHOSPHORUS STAT 07/14/2020 6:13 AM CDT MAGNESIUM STAT 07/14/2020 6:13 AM CDT COMPREHENSIVE METABOLIC PANEL STAT 07/14/2020 6:13 AM CDT B CHECK SAMPLE STAT 07/13/2020 11:00 AM CDT SURGICAL PATHOLOGY Routine 07/13/2020 9: 38 AM CDT Acute cholecystitis MYCOLOGY (FUNGAL) CULTURE AND STAIN Routine 07/13/2020 9:09 AM CDT AEROBIC AND ANAEROBIC CULTURE AND GRAM STAIN Routine 07/13/2020 9:09 AM CDT CHOLECYSTECTOMY 07/13/2020 8:28 AM CDT Acute cholecystitis POCT GLUCOSE DEVICE Routine 07/13/2020 8 :09 AM CDT PROTIME-INR Routine 07/13/2020 8:09 AM CDT TYPE AND SCREEN Timed 07/13/2020 8:00 AM CDT documented in this encounter Results * Phosphorus (07/14/2020 10:05 PM CDT) Phosphorus, pl 2.8 2.3 - 4.5 mg/dL [facility] Blood specimen (specimen) 07/14/2020 10:05 PM CDT 07/14/2020 11:32 PM CDT Stephany SANDOVAL LAB BLOOD ORDERABLES Mariangel l Result [facility] Department [place] [address] * Magnesium (07/14/2020 10:05 PM CDT) Magnesium 1.7 1.4 - 2.5 mg/dL [facility] Blood specimen (specimen) 07/14/2020 10:05 PM CDT 07/14/2020 11:32 PM CDT Stephany SANDOVAL LAB BLOOD ORDERABLES Mariangel venessa Result [facility] Department [place] [address] * (ABNORMAL) Comprehensive metabolic panel (07/14/2020 10:05 PM CDT) Sodium 136 135 - 145 mmol/L [facility] Potassium, pl 3.8 3.3 - 4.9 mmol/L [facility] Chloride 102 97 - 110 mmol/L [facility] CO2 26 22 - 32 mmol/L [facility] Anion gap 8 2 - 15 mmol/L [facility] BUN 12 8 - 25 mg/dL [facility] Creatinine 0.79(L) 0.80 - 1.30 mg/dL [facility] Glucose 121 70 - 199 mg/dL [facility] Comment: Interpretive Data Fasting glucose >/= [...] 2017. Calcium 9.2 8.5 - 10.3 mg/dL [facility] Bilirubin, total 0.6 0.1 - 1.2 mg/dL [facility] Protein, pl 6.0(L) 6.5 - 8.5 g/dL [facility] Albumin 3.4(L) 3.5 - 5.0 g/dL [facility] Alk phos 91 40 - 130 Units/L [facility] ALT 14 7 - 55 Units/L [facility] AST 23 10 - 50 Units/L [facility] Blood specimen (specimen) 07/14/2020 10:05 PM CDT 07/14/2020 11:32 PM CDT us Stephany SANDOVAL LAB BLOOD ORDERABLES Mariangel l Result [facility] Department [place] [address] * (ABNORMAL) CBC without differential (07/14/2020 10:05 PM CDT) WBC 9.2 3.8 - 9.9 K/cumm [facility] Hgb 12.6(L) 13.0 - 17.5 g/dL [facility] Hct 36.5(L) 38.9 - 50.3 % [facility] Plt 141(L) 150 - 400 K/cumm [facility] Comment:No clot detected in sample. MPV 11.4 9.1 - 12.3 fL [facility] RBC 3.75(L) 4.30 - 5.80 M/cumm [facility] MCV 97.3(H) 81.3 - 96.4 fL [facility] MCH 33.6(H) 27.1 - 33.3 pg [facility] MCHC 34.5 32.3 - 35.7 g/dL [facility] RDW CV 14.2 11.1 - 14.9 % [facility] RDW SD 51.0(H) 35.7 - 48.1 fL [facility] NRBC abs 0.00 0.00 - 0.01 K/cumm [facility] Blood specimen (specimen) 07/14/2020 10:05 PM CDT 07/14/2020 11:29 PM CDT Stephany SANDOVAL LAB BLOOD ORDERABLES Mariangel l Result Performing Organization Address City/[facility]/ZIP Co de Phone Number [facility] Department [place] [address] * (ABNORMAL) Differential, auto (07/14/2020 6:13 AM CDT) Pathologist [facility] Neutrophil abs 7.9(H) 1.7 - 6.5 K/cumm [facility] Imm gran abs 0.0 0.0 - 0.1 K/cumm [facility] Lymphocyte abs 1.5 0.8 - 3.3 K/cumm [facility] Monocyte abs 0.6 0.2 - 0.8 K/cumm [facility] Eosinophil abs 0.0 0.0 - 0.5 K/cumm [facility] Basophil abs 0.0 0.0 - 0.1 K/cumm [facility] Neutrophil pct 79.2 % [facility] Comment: Interpretive Data Percent cell count reference ranges are not reported, since discordance with absolute values may lead to misinterpretation of CBC data. Current Interpretive Data was last revised on 2017. Imm gran pct 0.3 % [facility] Comment: Interpretive Data Percent cell count reference ranges are not reported, since discordance with absolute values may lead to misinterpretation of CBC data. Current Interpretive Data was last revised on 2017. Lymphocyte pct 14.5 % [facility] Comment: Interpretive Data Percent cell count reference ranges are not reported, since discordance with absolute values may lead to misinterpretation of CBC data. Current Interpretive Data was last revised on 2017. Monocyte pct 5.7 % [facility] Comment: Interpretive Data Percent cell count reference ranges are not reported, since discordance with absolute values may lead to misinterpretation of CBC data. Current Interpretive Data was last revised on 2017. Eosinophil pct 0.1 % [facility] Comment: Interpretive Data Percent cell count reference ranges are not reported, since discordance with absolute values may lead to misinterpretation of CBC data. Current Interpretive Data was last revised on 2017. Basophil pct 0.2 % [facility] Comment: Interpretive Data Percent cell count reference ranges are not reported, since discordance with absolute values may lead to misinterpretation of CBC data. Current Interpretive Data was last revised on 2017. Blood specimen (specimen) 07/14/2020 6:13 AM CDT 07/14/2020 7:43 AM CDT us Eugene Oates MD LAB BLOOD ORDERABLES Fin al Result [facility] [place] [address] * Phosphorus (07/14/2020 6:13 AM CDT) [facility] Phosphorus, pl 3.9 2.3 - 4.5 mg/dL [facility] Blood specimen (specimen) 07/14/2020 6:13 AM CDT 07/14/2020 7:43 AM CDT Eugene Oates MD LAB BLOOD ORDERABLES Fin al Result Performing Organization Address City/[facility]/[place] [address] * Magnesium (07/14/2020 6:13 AM CDT) [facility] Magnesium 1.8 1.4 - 2.5 mg/dL [facility] Blood specimen (specimen) 07/14/2020 6:13 AM CDT 07/14/2020 7:43 AM CDT Eugene Oates MD LAB BLOOD ORDERABLES Fin al Result Performing Organization Address City/[facility] [place] [address] * (ABNORMAL) CBC with auto differential (07/14/2020 6:13 AM CDT) [facility] WBC 10.0(H) 3.8 - 9.9 K/cumm [facility] Hgb 13.7 13.0 - 17.5 g/dL [facility] Hct 39.3 38.9 - 50.3 % [facility] Plt 148(L) 150 - 400 K/cumm [facility] MPV 11.4 9.1 - 12.3 fL [facility] RBC 4.08(L) 4.30 - 5.80 M/cumm [facility] MCV 96.3 81.3 - 96.4 fL [facility] MCH 33.6(H) 27.1 - 33.3 pg [facility] MCHC 34.9 32.3 - 35.7 g/dL [facility] RDW CV 14.3 11.1 - 14.9 % [facility] RDW SD 50.4(H) 35.7 - 48.1 fL [facility] NRBC abs 0.00 0.00 - 0.01 K/cumm [facility] Blood specimen (specimen) 07/14/2020 6:13 AM CDT 07/14/2020 7:43 AM CDT us Eugene Oates MD LAB BLOOD ORDERABLES Fin al Result [facility] Department [place] [address] * (ABNORMAL) Comprehensive metabolic panel (07/14/2020 6:13 AM CDT) Sodium 139 135 - 145 mmol/L [facility] Potassium, pl 4.0 3.3 - 4.9 mmol/L [facility] Chloride 107 97 - 110 mmol/L [facility] CO2 28 22 - 32 mmol/L [facility] Anion gap 4 2 - 15 mmol/L [facility] BUN 13 8 - 25 mg/dL [facility] Creatinine 0.77(L) 0.80 - 1.30 mg/dL [facility] Glucose 105 70 - 199 mg/dL [facility] Comment: Interpretive Data Fasting glucose >/= [...] 2017. Calcium 9.0 8.5 - 10.3 mg/dL [facility] Bilirubin, total 0.5 0.1 - 1.2 mg/dL [facility] Protein, pl 5.6(L) 6.5 - 8.5 g/dL [facility] Albumin 3.1(L) 3.5 - 5.0 g/dL [facility] Alk phos 88 40 - 130 Units/L [facility] ALT 9 7 - 55 Units/L [facility] AST 17 10 - 50 Units/L [facility] Blood specimen (specimen) 07/14/2020 6:13 AM CDT 07/14/2020 7:43 AM CDT Eugene Oates MD LAB BLOOD ORDERABLES Fin al Result [facility] Department [place] [address] * Check Sample (07/13/2020 11:00 AM CDT) ABO Rh O Positive [facility] HCLL OTHER 07/13/2020 11:0 0 AM CDT 07/13/2020 11:39 AM CDT Eugene Oates MD LAB BLOOD ORDERABLES Fin al Result Performing Organization Address [facility] Co de Phone Number [facility] Department [place] [address] * Surgical pathology (07/13/2020 9:38 AM CDT) Tissue (Gallbladder) 07/13/2020 9:38 AM CDT Narrative PATHOLOGY [facility] - 07/14/2020 6:18 PM CDT EPIC results best viewed via link to PDF [facility] [place] [address] SURGICAL PATHOLOGY REPORT FINAL Patient Name: ?? JANIA GUAJARDO Gender: ??M : ??1950 (Age: 70) Address: ??[address], [place] ??[address] Hospital #: ??[id number] Taken:07/13/2020 Received:07/13/2020 Reported: 07/14/2020 Patient Type: [facility] Inpatient ?? Service: Surgery Location: [place] [address] Physician(s): ??Chelsea Vickers M.D. Ina Chen, M.D. Diagnosis: A. ??Gallbladder, partial cholecystectomy and gallstones ? - Portion of gallbladder with extensive mural fibrosis, loss of muscularis, and fibrosis of adjacent soft tissue - Cholelithiasis fvw/07/14/2020 18:18 By this signature, I attest that the above diagnosis is based upon my personal examination of the slides(and/or other material indicated in the diagnosis). Debi Malik M.D. Report Electronically Reviewed and Signed Out By ??Debi Malik M.D. 07/14/2020 18:18:29 Microscopic Description and Comment: Microscopic examination substantiates the above diagnosis. ?? History: The patient is a 70-year-old man with acute cholecystitis. ??Operative procedure: Cholecystectomy. Specimen(s) Received: A: Partial cholestectomy and gallstones Gross Description: Received in a single formalin filled container labeled with the patient's name and partial cholecystectomy and gallstones are two roughly rectangular shaped portions of rubbery, dull, pink-humphries fibrous tissue (2.8 x 1.5 x 0.9 cm in aggregate), two irregular shaped portions of lobular, yellow fatty tissue (3.0 x 1.9 x 1.0 cm in aggregate) and two irregularly-shaped black stones measuring 0.4 and 0.9 cm in greatest dimension. ??Sections show ink white fibrous cut surface and yellow fatty tissue with no distinct gallbladder mucosa grossly appreciated. ??Labeled A1 - portions of fibrous tissue submitted entirely. ??Jar 1 to include the fatty tissue and stones. mr2/07/13/2020 14:28 PA(s): Guillermina Avalos, MS, PA ([facility] By this signature, I attest that the above diagnosis is based upon my personal examination of the slides(and/or other material). Addenda/Procedures The performance characteristics of some immunohistochemical stains, fluorescence in-situ hybridization tests and immunophenotyping by flow cytometry cited in this report (if any) were determined by the Surgical Pathology Department at [facility] as part of an ongoing housing quality standard inspector program and in compliance with federally mandated regulations drawn from the Clinical Laboratory Improvement Act of 1988 (CLIA '88). ??Some of these tests rely on the use of analyte specific reagents and are subject to specific labeling requirements by the US Food and Drug Administration. ??Such diagnostic tests may only be performed in a facility that is certified by the Department of Health and Human Services as a high complexity laboratory under CLIA '88. ??The FDA has determined that such clearance or approval is not necessary. ??This test is used for clinical purposes. ??It should not be regarded as investigational or for research. ??Nevertheless, federal rules concerning the medical use of analyte specific reagents require that the following disclaimer be attached to the report: This test was developed and its performance characteristics determined by the Surgical Pathology Department of [facility]. ??It has not been cleared or approved by the U. S. Food and Drug Administration. IMAGES AND SCANNED DOCUMENTS, IF INCLUDED, ONLY VIEWABLE IN PDF VERSION OF REPORT Eugene Oates MD LAB PATHOLOGY ORDERABLES Final Result Performing Organization Address City/State/[facility] Co de Phone Number PATHOLOGY [facility] 3rd Floor [place], [place] [phone] * Mycology (fungal) culture and stain Abscess Abdominal (07/13/2020 9:09 AM CDT) Direct Specimen Exam Stain: No Fungal elements seen. [facility] Report Final Report: No growth of fungus [facility] Abscess (Abdominal) 07/13/2020 9:09 AM CDT 07/13/2020 11:27 AM CDT Narrative [facility] - 08/10/2020 11:08 AM CDT Testing performed by [facility] Microbiology Laboratory ([phone]). Eugene Oates MD LAB MICROBIOLOGY - GENER AL ORDERABLES Final Result Performing Organization Address City/State/[facility] Co de Phone Number [facility] [place] [address] * Aerobic and anaerobic culture and gram stain Abscess Abdominal (07/13/2020 9:09 AM CDT) Pathologist [facility] Direct Specimen Exam Stain: No polymorphonuclear leukocytes seen. No organisms seen. [facility] Report Final Report: No growth [facility] Abscess (Abdominal) 07/13/2020 9:09 AM CDT 07/13/2020 11:27 AM CDT Narrative [facility] - 07/16/2020 10:59 AM CDT Testing performed by [facility] Microbiology Laboratory ([phone]) Specimens submitted from normally sterile body sites [...] data was last revised on 2019. us Eugene Oates MD LAB MICROBIOLOGY - GENER AL ORDERABLES Final Result Performing Organization Address [facility] Co de Phone [place] [address] * POCT glucose (07/13/2020 8:09 AM CDT) Pathologist [facility] Glucose, POC 98 70 - 199 mg/dL [facility] Blood specimen (specimen) 07/13/2020 8:09 AM CDT 07/13/2020 8:09 AM CDT Eugene Oates MD LAB POCT ORDERABLES - DE VICE Final Result Performing Organization Address [facility] Co de Phone Number [facility] [place] [address] * Protime-INR (07/13/2020 8:09 AM CDT) PT 12.3 9.5 - 13.6 sec [facility] INR 1.1 0.9 - 1.2 [facility] Comment: Interpretive data Oral anticoagulant therapeutic ranges: Venous thromboembolism prophylaxis or treatment: 2.0-3.0 CARDIOLOGY Standard range: 2.0-3.0 High-intensity range: 2.5-3.5 Refer to indication-specific guidelines for appropriate target ranges for prosthetic heart valve replacement. Current interpretive data was last revised on 2019. Blood specimen (specimen) 07/13/2020 8:09 AM CDT 07/13/2020 8:20 AM CDT Jimmie Cordero MD PhD LAB BLOOD ORDERA BLES Final Result Performing Organization Address City/[facility] Co de Phone Number [facility] Department [place] [address] * Type and screen (07/13/2020 8:00 AM CDT) ABO Rh O Positive [facility] Nancy, indirect Negative [facility] Blood specimen (specimen) 07/13/2020 8:00 AM CDT 07/13/2020 8:21 AM CDT Narrative [facility] - 07/13/2020 9:39 AM CDT Has the patient had Daratumumab or Isatuximab in the past 6 months?->Unknown Jimmie Cordero MD PhD LAB BLOOD BANK T EST ORDERABLES Final Result Performing Organization Address City/[facility] Co de Phone Number [facility] [place] [address] documented in this encounter Visit Diagnoses Diagnosis Cholecystitis- Primary Cholecystitis, unspecified Acute cholecystitis documented in this encounter Admitting Diagnoses Diagnosis Acute cholecystitis documented in this encounter Administered Medications Inactive Administered Medications - up to 3 most recent administrations Medication Order MAR Action Action Date Dose Rate Site acetaminophen (TYLENOL) tablet 1,000 mg 1,000 mg, oral, Once, On Sat07/13/20 at 0700, For 1 dose, Pre-Op, Administer 60 minutes prior to surgery. Given 07/13/2020 6:43 AM CDT 1,000 mg acetaminophen (TYLENOL) tablet 1,000 mg 1,000 mg, oral, Every 6 hours scheduled, First dose on Sat07/13/20 at 2000, Phase I & Post-op Floor, Indications: PainIndications:Pain Given 07/16/2020 6:33 AM CDT 1,000 mg Given 07/15/2020 10:45 PM CDT 1,000 mg Given 07/15/2020 6:50 PM CDT 1,000 mg albuterol 2.5 mg/0.5 mL nebulizer solution 2.5 mg 2.5 mg, nebulization, Every 6 hours (rehabilitation therapy aide), First dose on Zoe 07/14/20 at 1800 Given 07/14/2020 5:10 PM CDT 2.5 mg albuterol 2.5 mg/0.5 mL nebulizer solution 2.5 mg 2.5 mg, nebulization, Every 4 hours (rehabilitation therapy aide), First dose (after last modification) on Sat07/14/20 at 1999 Given 07/15/2020 5:18 PM CDT 2.5 mg Given 07/15/2020 12:08 PM CDT 2.5 mg Given 07/15/2020 8:46 AM CDT 2.5 mg albuterol 2.5 mg/0.5 mL nebulizer solution 2.5 mg 2.5 mg, nebulization, 4 times daily (rehabilitation therapy aide), First dose (after last modification) on Sat07/15/20 at 1999 Given 07/16/2020 8:30 AM CDT 2.5 mg Given 07/15/2020 7:33 PM CDT 2.5 mg apixaban (ELIQUIS) tablet 5 mg 5 mg, oral, Every 12 hours scheduled, First dose on Sat07/15/20 at 1215, Nurse to discontinue heparin infusion order and associated bolus at first administration of apixaban using ? order condition met? order source, Indications: atrial fibrillationIndications:atrial fibrillation Given 07/16/2020 8:59 AM CDT 5 mg Given 07/15/2020 9:01 PM CDT 5 mg Given 07/15/2020 12:35 PM CDT 5 mg ciprofloxacin (CIPRO) tablet 500 mg 500 mg, oral, 2 times daily (for quinolones,etc), First dose on Sat07/14/20 at 0630, For 10 doses, Administer ciprofloxacin at least 2 hours before or 6 hours after antacids (containing aluminum or magnesium), calcium or calcium containing foods such as milk or yogurt, MVI (containing iron or zinc), iron, zinc, sucralfate or buffered meds such as didanosine., Indications: Abdominal/Pelvic InfectionIndications:Abdominal/Pelvic Infection Given 07/16/2020 6:33 AM CDT 500 mg Given 07/15/2020 6:50 PM CDT 500 mg Given 07/15/2020 5:01 AM CDT 500 mg folic acid (FOLVITE) tablet 1 mg 1 mg, oral, Every morning, First dose on Sat07/14/20 at 0900, Indications: Folate DeficiencyIndications:Folate Deficiency Given 07/16/2020 8:59 AM CDT 1 mg Given 07/15/2020 8:08 AM CDT 1 mg Given 07/14/2020 9:20 AM CDT 1 mg gabapentin (NEURONTIN) capsule 300 mg 300 mg, oral, Once, On Sat07/13/20 at 0700, For 1 dose, Pre-Op, Administer 60 minutes prior to surgery. Given 07/13/2020 6:43 AM CDT 300 mg heparin 5,000 unit/mL injection 5,000 Units 5,000 Units, subcutaneous, Every 8 hours scheduled, First dose on Sat07/14/20 at 0630, Indications: Deep Vein Thrombosis PreventionIndications:Deep Vein Thrombosis Prevention Given 07/15/2020 5:01 AM CDT 5,000 Units Right Upper Arm Given 07/14/2020 8:19 PM CDT 5,000 Units L eft Lower Abdomen Given 07/14/2020 6:00 AM CDT 5,000 Units R ight Lower Abdomen HYDROmorphone (DILAUDID) injection 0.4 mg 0.4 mg, intravenous, Administer over 2 Minutes, Every 10 min PRN, 1st line for pain, Starting on Sat07/13/20 at 1028, Phase I, Notify Anesthesiologist if total PACU dose reaches 2 mg and pain score 5/10 or more., Indications: PainIndications:Pain Given 07/13/2020 2:50 PM CDT 0.4 mg ipratropium (ATROVENT) 0.02 % nebulizer solution 0.5 mg 0.5 mg, nebulization, Every 6 hours while awake (rehabilitation therapy aide), First dose on Zoe 07/14/20 at 1800 Given 07/14/2020 5:10 PM CDT 0.5 mg ipratropium (ATROVENT) 0.02 % nebulizer solution 0.5 mg 0.5 mg, nebulization, Every 4 hours (rehabilitation therapy aide), First dose (after last modification) on Zoe 07/14/20 at 2000 Given 07/15/2020 5:18 PM CDT 0.5 mg Given 07/15/2020 12:09 PM CDT 0.5 mg Given 07/15/2020 8:47 AM CDT 0.5 mg ipratropium (ATROVENT) 0.02 % nebulizer solution 0.5 mg 0.5 mg, nebulization, 4 times daily (rehabilitation therapy aide), First dose (after last modification) on Sat07/15/20 at 2000 Given 07/16/2020 8:30 AM CDT 0.5 mg Given 07/15/2020 7:33 PM CDT 0.5 mg Lactated Ringer's (LR) infusion 30 mL/hr, intravenous, Continuous, Starting on Sat07/13/20 at 0700, Pre-Op New Bag 07/13/2020 9:26 AM CDT New Bag 07/13/2020 6:43 AM CDT 30 mL/hr 30 mL/hr Lactated Ringer's (LR) infusion 75 mL/hr, intravenous, Continuous, Starting on Sat07/13/20 at 1100, For 24 hours, Phase I & Post-op Floor Rate/Dose Verify 07/14/2020 5:11 AM CDT 75 mL/hr 75 mL/hr New Bag 07/14/2020 1:00 AM CDT 75 mL/hr 75 mL/hr New Bag 07/13/2020 11:18 AM CDT 75 mL/hr 75 mL/hr levalbuterol (XOPENEX) 1.25 mg/3 mL nebulizer solution 1.25 mg 1.25 mg, nebulization, Every 4 hours PRN (rehabilitation therapy aide), shortness of breath, Starting on Sat07/14/20 at 0724 Given 07/14/2020 10:27 AM CDT 1.25 mg lisinopriL (PRINIVIL,ZESTRIL) tablet 20 mg 20 mg, oral, Daily, First dose on Sat07/15/20 at 1215 Given 07/16/2020 8:59 AM CDT 20 mg Given 07/15/2020 12:35 PM CDT 20 mg magnesium oxide (MAG-OX) tablet 800 mg 800 mg, oral, Once, On Sat07/15/20 at 0730, For 1 dose, 1 tablet = Magnesium oxide 400 mg = 241.3 mg elemental magnesium, Indications: hypomagnesemiaIndications:hypomagnesemia Given 07/15/2020 8:08 AM CDT 800 mg metoprolol (LOPRESSOR) injection 5 mg 5 mg, intravenous, Administer over 1 Minutes, Every 2 hours PRN, high blood pressure, Starting on Sat07/13/20 at 1938, HOLD if HR<80. Given 07/14/2020 5:54 AM CDT 5 mg Given 07/14/2020 3:38 AM CDT 5 mg Given 07/14/2020 1:37 AM CDT 5 mg metoprolol (LOPRESSOR) injection 5 mg 5 mg, intravenous, Administer over 1 Minutes, Once, On Sat07/13/20 at 2145, For 1 dose Given 07/13/2020 9:31 PM CDT 5 mg metoprolol (LOPRESSOR) injection 5 mg 5 mg, intravenous, Administer over 1 Minutes, Once, On Sat07/14/20 at 0330, For 1 dose Given 07/14/2020 3:11 AM CDT 5 mg metoprolol tartrate (LOPRESSOR) immediate release tablet 25 mg 25 mg, oral, 2 times daily, First dose on Sat07/14/20 at 0900 Given 07/16/2020 8:59 AM CDT 25 mg Given 07/15/2020 9:00 PM CDT 25 mg Given 07/15/2020 8:08 AM CDT 25 mg metroNIDAZOLE (FLAGYL) tablet 500 mg 500 mg, oral, 3 times daily, First dose on Sat07/14/20 at 0900, For 15 doses, Indications: Abdominal/Pelvic InfectionIndications:Abdominal/Pelvic Infection Given 07/16/2020 8:59 AM CDT 500 mg Given 07/15/2020 9:00 PM CDT 500 mg Given 07/15/2020 4:10 PM CDT 500 mg oxyCODONE (ROXICODONE) tablet 5 mg 5 mg, oral, Once as needed, 1st line for pain, Starting on Sat07/13/20 at 1028, For 1 dose, Phase I, When able to tolerate PO., Indications: PainIndications:Pain Given 07/13/2020 6:46 PM CDT 5 mg oxyCODONE (ROXICODONE) tablet 5 mg 5 mg, oral, Every 4 hours PRN, 1st line for pain, Starting on Sat07/14/20 at 0550, Indications: PainIndications:Pain Given 07/14/2020 10:54 AM CDT 5 mg oxyCODONE (ROXICODONE) tablet 5 mg 5 mg, oral, Every 4 hours PRN, 2nd line for pain, Starting on Sat07/14/20 at 0406, For 20 doses, Indications: PainIndications:Pain Given 07/14/2020 4:13 AM CDT [address] (PROTONIX) extended release tablet 40 mg 40 mg, oral, Every morning, First dose on Sat07/14/20 at 0900, Do not crush, chew, cut, dissolve, open or otherwise manipulate tablet/capsule., Indications: Stress Ulcer ProphylaxisIndications:Stress Ulcer Prophylaxis Given 07/16/2020 8:59 AM CDT 40 mg Given 07/15/2020 8:08 AM CDT 40 mg Given 07/14/2020 9:20 AM CDT 40 mg potassium chloride (KLOR-CON) packet 20 mEq 20 mEq, feeding tube, Once, On Sat07/15/20 at 0200, For 1 dose, Dissolve one packet in at least 120 mL of cold water or other beverage prior to administration. Given 07/15/2020 2:46 AM CDT 20 mEq prochlorperazine (COMPAZINE) injection 10 mg 10 mg, intravenous, Once as needed, nausea, vomiting, Starting on Sat07/13/20 at 1028, For 1 dose, Phase I Given 07/13/2020 10:48 AM CDT 10 mg ramelteon (ROZEREM) tablet 8 mg 8 mg, oral, Nightly PRN, sleep, Starting on Sat07/14/20 at 2138, Indications: Sleep-Onset InsomniaIndications:Sleep-Onset Insomnia Given 07/14/2020 10:22 PM CDT 8 mg senna-docusate (PERICOLACE) 8.6-50 mg per tablet 1 tablet 1 tablet, oral, 2 times daily, First dose on Sat07/15/20 at 0900 Given 07/16/2020 8:59 AM CDT 1 tablet Given 07/15/2020 8:08 AM CDT 1 tablet terazosin (HYTRIN) capsule 10 mg 10 mg, oral, Nightly, First dose on Sat07/14/20 at 2100 Given 07/15/2020 9:01 PM CDT 10 mg Given 07/14/2020 8:19 PM CDT 10 mg thiamine (VITAMIN B1) tablet 100 mg 100 mg, oral, Every morning, First dose on Sat07/14/20 at 0900, Indications: Thiamine DeficiencyIndications:Thiamine Deficiency Given 07/16/2020 8:59 AM CDT 10 0 mg Given 07/15/2020 8:08 AM CDT 100 mg Given 07/14/2020 9:20 AM CDT 100 mg traMADoL (ULTRAM) tablet 50 mg 50 mg, oral, Every 4 hours PRN, 2nd line for pain, Starting on Sat07/14/20 at 1512 Given 07/15/2020 10:57 AM CDT 50 mg documented in this encounter Discontinued Medications Medication Sig Discontinue Reason Start Date End Da te potassium chloride ER (KLOR-CON) 20 mEq CR tablet Take 2 tablets (40 mEq total) by mouth daily Stop Taking at Discharge 02/23/2020 07/16/2020 loperamide (IMODIUM) 2 mg capsuleIndications:cinthia rrhea Take 2 mg by mouth every morning Stop Taking at Discharge 07/16/2020 acetaminophen (TYLENOL) 500 mg tabletIndications:Pain Take 2,000 mg by mouth 2 (two) times a day as needed for pain Stop Taking at Discharge 07/16/2020 documented as of this encounter Active and Recently Administered Medications Times are shown in CDT. Scheduled Medication Order 07/14/2020 07/15/2020 07/16/2020 acetaminophen (TYLENOL) tablet 1,000 mg 1,000 mg, oral, Every 6 hours scheduled, First dose on Sat07/13/20 at 1999, Phase I & Post-op Floor, Indications: Pain 0101 (Given - Provider: Josefina Jacob, RN)1054 (Given - Provider: Janna Guido, RN)1951 (Not Given - Provider: Kodak Gonzalez RN - Reason: Other)2222 (Given - Provider: Libby Snowden RN) 0456 (Not Given - Provider: Libby Snowden RN - Reason: Patient/family refused)1057 (Given - Provider: Rush Pearson, GAURAV)1850 (Given - Provider: Rush Pearson, GAURAV)2245 (Given - Provider: Mercedez Zafar, GAURAV) 0633 (Given - Provider: Mercedez Zafar RN)1100 (Due - Provider: Emerita Casper [facility]) albuterol 2.5 mg/0.5 mL nebulizer solution 2.5 mg (CANCELED) 2.5 mg, nebulization, Every 6 hours (rehabilitation therapy aide), First dose on Sat07/14/20 at 1800 1710 (Given - Provider: Brittany Guaman, BUNNY) albuterol 2.5 mg/0.5 mL nebulizer solution 2.5 mg (CANCELED) 2.5 mg, nebulization, Every 4 hours (rehabilitation therapy aide), First dose (after last modification) on Sat07/14/20 at 1999 2043 (Given - Provider: Pacheco Singleton RRT) 0022 (Given - Provider: Pacheco Singleton RRT)0400 (Due)0846 (Given - Provider: Deepthi Villeda, BUNNY)1208 (Given - Provider: Deepthi Villeda RRT)1718 (Given - Provider: Deepthi Villeda RRT) albuterol 2.5 mg/0.5 mL nebulizer solution 2.5 mg (CANCELED)(Linked Group 1) 2.5 mg, nebulization, 4 times daily (rehabilitation therapy aide), First dose (after last modification) on Sat07/15/20 at 2000 1933 (Given - Provider: Pacheco Singleton, [employer]) 0830 (Given - Provider: Karlee Goins, BUNNY) apixaban (ELIQUIS) tablet 5 mg 5 mg, oral, Every 12 hours scheduled, First dose on Sat07/15/20 at 1215, Nurse to discontinue heparin infusion order and associated bolus at first administration of apixaban using ? order condition met? order source, Indications: atrial fibrillation 1235 (Given - Provider: Rush Pearson, GAURAV)2101 (Given - Provider: Merceedz Zafar RN) 0859 (Given - Provider: Rush Pearson, GAURAV) ciprofloxacin (CIPRO) tablet 500 mg 500 mg, oral, 2 times daily (for quinolones,etc), First dose on Sat07/14/20 at 0630, For 10 doses, Administer ciprofloxacin at least 2 hours before or 6 hours after antacids (containing aluminum or magnesium), calcium or calcium containing foods such as milk or yogurt, MVI (containing iron or zinc), iron, zinc, sucralfate or buffered meds such as didanosine., Indications: Abdominal/Pelvic Infection 0600 (Given - Provider: Josefina Jacob RN)195 (Given - Provider: Kodak Gonzalez RN) 050 (Given - Provider: Libby Snowden RN)1850 (Given - Provider: Rush Pearson, GAURAV) 0633 (Given - Provider: Mercedez Zafar RN) folic acid (FOLVITE) tablet 1 mg 1 mg, oral, Every morning, First dose on Sat07/14/20 at 0900, Indications: Folate Deficiency 0920 (Given - Provider: Janna Guido RN) 0808 (Given - Provider: Rush Pearson, GAURAV) 0859 (Given - Provider: Rush Pearson, GAURAV) heparin 5,000 unit/mL injection 5,000 Units (CANCELED) 5,000 Units, subcutaneous, Every 8 hours scheduled, First dose on Sat07/14/20 at 0630, Indications: Deep Vein Thrombosis Prevention 0600 (Given - Provider: Josefina Jacob RN)1950 (Not Given - Provider: Kodak Gonzalez RN - Reason: Other)2019 (Given - Provider: Libby Snowden, RN) 050 (Given - Provider: Libby Snowden RN) ipratropium (ATROVENT) 0.02 % nebulizer solution 0.5 mg (CANCELED) 0.5 mg, nebulization, Every 6 hours while awake (rehabilitation therapy aide), First dose on Sat07/14/20 at 1800 1710 (Given - Provider: Brittany Guaman, [employer]) ipratropium (ATROVENT) 0.02 % nebulizer solution 0.5 mg (CANCELED) 0.5 mg, nebulization, Every 4 hours (rehabilitation therapy aide), First dose (after last modification) on Sat07/14/20 at 2000 2043 (Given - Provider: Pacheco Singleton RRT) 0022 (Given - Provider: Pacheco Singleton RRT)0400 (Due)0847 (Given - Provider: Deepthi Villeda RRT)1209 (Given - Provider: Deepthi Villeda RRT)1718 (Given - Provider: Deepthi Villeda RRT) ipratropium (ATROVENT) 0.02 % nebulizer solution 0.5 mg (CANCELED)(Linked Group 1) 0.5 mg, nebulization, 4 times daily (rehabilitation therapy aide), First dose (after last modification) on Sat07/15/20 at 2000 1933 (Given - Provider: Pacheco Singleton RRT) 0830 (Given - Provider: Karlee Goins RRT) lisinopriL (PRINIVIL,ZESTRIL) tablet 20 mg 20 mg, oral, Daily, First dose on Sat07/15/20 at 1215 1235 (Given - Provider: Rush Pearson, GAURAV) 0859 (Given - Provider: Rush Pearson, GAURAV) magnesium oxide (MAG-OX) tablet 800 mg (COMPLETED) 800 mg, oral, Once, On Sat07/15/20 at 0730, For 1 dose, 1 tablet = Magnesium oxide 400 mg = 241.3 mg elemental magnesium, Indications: hypomagnesemia 0808 (Given - Provider: Rush Pearson, GAURAV) metoprolol (LOPRESSOR) injection 5 mg (COMPLETED) 5 mg, intravenous, Administer over 1 Minutes, Once, On Sat07/14/20 at 0330, For 1 dose 0311 (Given - Provider: Josefina Jacob, GAURAV) metoprolol tartrate (LOPRESSOR) immediate release tablet 25 mg 25 mg, oral, 2 times daily, First dose on Sat07/14/20 at 0900 0921 (Given - Provider: Janna Guido RN)2031 (Given - Provider: Libby Snowden RN) 08 (Given - Provider: Rush Pearson RN)2100 (Given - Provider: Mercedez Zafar RN) 0859 (Given - Provider: Rush Pearson, GAURAV) metroNIDAZOLE (FLAGYL) tablet 500 mg 500 mg, oral, 3 times daily, First dose on Sat07/14/20 at 0900, For 15 doses, Indications: Abdominal/Pelvic Infection 09 (Given - Provider: Janna Guido, GAURAV)1950 (Not Given - Provider: Kodak Gonzalez RN - Reason: Other)2018 (Given - Provider: Libby Snowden RN) 08 (Given - Provider: Rush Pearson RN)161 (Given - Provider: Rush Pearson, GAURAV)2100 (Given - Provider: Mercedez Zafar, GAURAV) 0859 (Given - Provider: Rush Pearson RN) pantoprazole DR (PROTONIX) extended release tablet 40 mg 40 mg, oral, Every morning, First dose on Sat07/14/20 at 0900, Do not crush, chew, cut, dissolve, open or otherwise manipulate tablet/capsule., Indications: Stress Ulcer Prophylaxis 0920 (Given - Provider: Janna Guido RN) 08 (Given - Provider: Rush Pearson RN) 0859 (Given - Provider: Rush Pearson RN) potassium chloride (KLOR-CON) packet 20 mEq (COMPLETED) 20 mEq, feeding tube, Once, On Sat07/15/20 at 0200, For 1 dose, Dissolve one packet in at least 120 mL of cold water or other beverage prior to administration. 0246 (Given - Provider: Libby Snowden RN) senna-docusate (PERICOLACE) 8.6-50 mg per tablet 1 tablet 1 tablet, oral, 2 times daily, First dose on Sat07/15/20 at 0900 0808 (Given - Provider: Rush Pearson, GAURAV)2146 (Not Given - Provider: Mercedez Zafar, RN - Reason: Patient/family refused) 0859 (Given - Provider: Rush Pearson, GAURAV) terazosin (HYTRIN) capsule 10 mg 10 mg, oral, Nightly, First dose on Sat07/14/20 at 2100 2019 (Given - Provider: Libby Snowden RN) 210 (Given - Provider: Mercedez Zafar, GAURAV) thiamine (VITAMIN B1) tablet 100 mg 100 mg, oral, Every morning, First dose on Sat07/14/20 at 0900, Indications: Thiamine Deficiency 0920 (Given - Provider: Janna Guido RN) 0808 (Given - Provider: Rush Pearson, GAURAV) 0859 (Given - Provider: Rush Pearson, GAURAV) Continuous Medication Order 07/14/2020 07/15/2020 07/16/2020 Lactated Ringer's (LR) infusion (CANCELED) 75 mL/hr, intravenous, Continuous, Starting on Sat07/13/20 at 1100, For 24 hours, Phase I & Post-op Floor 0100 (New Bag - Provider: Josefina Jacob RN)0511 (Rate/Dose Verify - Provider: Josefina Jacob RN) PRN Medication Order 07/14/2020 07/15/2020 07/16/2020 levalbuterol (XOPENEX) 1.25 mg/3 mL nebulizer solution 1.25 mg 1.25 mg, nebulization, Every 4 hours PRN (rehabilitation therapy aide), shortness of breath, Starting on Sat07/14/20 at 0724 1027 (Given - Provider: Brittany Guaman, [employer]) metoprolol (LOPRESSOR) injection 5 mg (CANCELED) 5 mg, intravenous, Administer over 1 Minutes, Every 2 hours PRN, high blood pressure, Starting on Sat07/13/20 at 1938, HOLD if HR<80. 0137 (Given - Provider: Josefina Jacob RN)0338 (Given - Provider: Josefina Jacob RN)0554 (Given - Provider: Josefina Jacob RN) ondansetron (ZOFRAN) injection 4 mg 4 mg, intravenous, Administer over 2 Minutes, Every 6 hours PRN, nausea, vomiting, Starting on Sat07/14/20 at 0550, Indications: Prevention of Nausea and Vomiting oxyCODONE (ROXICODONE) tablet 5 mg (CANCELED) 5 mg, oral, Every 4 hours PRN, 1st line for pain, Starting on Sat07/14/20 at 0550, Indications: Pain 1054 (Given - Provider: Janna Guido RN) oxyCODONE (ROXICODONE) tablet 5 mg (CANCELED) 5 mg, oral, Every 4 hours PRN, 2nd line for pain, Starting on Sat07/14/20 at 0406, For 20 doses, Indications: Pain 0413 (Given - Provider: Josefina Jacob RN) ramelteon (ROZEREM) tablet 8 mg 8 mg, oral, Nightly PRN, sleep, Starting on Sat07/14/20 at 2138, Indications: Sleep-Onset Insomnia 2222 (Given - Provider: Libby Snowden RN) traMADoL (ULTRAM) tablet 50 mg 50 mg, oral, Every 4 hours PRN, 2nd line for pain, Starting on Sat07/14/20 at 1512 1057 (Given - Provider: Rush Pearson RN) Linked Groups Order Group 1: albuterol 2.5 mg/0.5 mL nebulizer solution 2.5 mg (CANCELED)Jump to med 2.5 mg, nebulization, 4 times daily (rehabilitation therapy aide), First dose (after last modification) on Sat07/15/20 at 2000 And ipratropium (ATROVENT) 0.02 % nebulizer solution 0.5 mg (CANCELED)Jump to med 0.5 mg, nebulization, 4 times daily (rehabilitation therapy aide), First dose (after last modification) on Sat07/15/20 at 2000 documented in this encounter Orders Medications Ordered That Bimal ht Not Have Been Administered Count Last Ordered Date First Ordered Date levalbuterol (XOPENEX) 1.25 mg/3 mL nebulizer solution 1.25 mg 1 07/14/2020 metoprolol (LOPRESSOR) injection 10 mg 1 ondansetron (ZOFRAN) injection 4 mg 1 07/14 bupivacaine (MARCAINE) 0.5 % (5 mg/mL) preservative free injection 1 07/13/2020 ceFAZolin (ANCEF) 2,000 mg/2 0 mL in sterile water (premix) 2,000 mg 1 07/13/2020 fentaNYL (SUBLIMAZE) preserv ative free injection 50 mcg 2 07/13/2020 gentamicin (GARAMYCIN) 480 m g in sodium chloride 0.9% 1,000 mL irrigation solution 1 07/13/2020 heparin 5,000 unit/mL inject ion 5,000 Units 1 07/13/2020 Lactated Ringer's (LR) infusion 1 naloxone (NARCAN) 0.4 mg/mL injection 0.04-0.4 mg 1 07/13/2020 sodium chloride 0.9% flush 0.5-20 mL 6 10/2020 sodium chloride 0.9% irrigation 1 sterile water irrigation 1 07/13/2020 Nursing Count Last Ordered Date First Orde red Date DISCHARGE INSTRUCTIONS 2 07/16/2020 Consult Count Last Ordered Date First Orde red Date IP CONSULT TO NUTRITION SERVICES 1 07/15/19 IP CONSULT TO SPIRITUAL CARE 1 07/14/2020 documented in this encounter Additional Health Concerns Infection Onset Date Last Indicated Resolved Time MDR gram neg/ESBL Comment:06/16/2021 IP Review - Pt with scrotal abscess, but is not actively draining (last documented draining on 06/14). Pt remains intubated so requires trach aspirate for isolation discontinuation. Provider notified. Amanda Walker RN 12/19/2019 12/19/2019 documented as of this encounter Care Teams [employer] Relationship Specialty Start Date End Date Jean-Claude Crawford MD [address] [place] [address] PCP - General Family Medicine 04/12/20 06/12/22 Jean-Claude Crawford MD [address] [place] [address] Family Medicine 04/12/20 documented as of this encounter
--- OUTSIDE RECORDS SUMMARY | 2024-04-08 10:38 | XMS_ITS | Encounter Summary ---
Author Organization [facility] Healthcare Address [address] [place] [address] Care Team Providers Care Continuity Writer Name Role Phone Jean-Claude Crawford MD Primary Care Provider Jean-Claude Crawford MD Unavailable [phone] Encounter Details Date Type Department Care Team (Latest Contact Info) Description 06/11/2021 7:53 PM PRIMER INSPECTOR - 06/11/2021 11:59 PM PRIMER INSPECTOR Hospital Encounter [facility] [address] [place] [id number] Discharge Disposition: Discharge to home or self [...] on file Legal Sex Male 9:10 PM PRIMER INSPECTOR Gender Identity Not on file Sexual Orientation Not on file documented as of this encounter Medications at Time of Discharge acetaminophen (TYLENOL) 325 mg tablet Take 2 tablets (650 mg total) by mouth every 4 (four) hours as needed for pain 30 tablet 2 cholecalciferol (VITAMIN D-3) 5,000 unit tabletIndications:V itamin D Deficiency Take 1 tablet (5,000 Units total) by mouth every other day ramelteon (ROZEREM) 8 mg tabletIndications:S leep-Onset Insomnia Take 1 tablet (8 mg total) by mouth nightly 30 tablet 11 2 enoxaparin (LOVENOX) 40 mg/0.4 mL syringe Inject 0.4 mL (40 mg total) under the skin daily for 28 days 11.2 mL 2 08/05/19 22 acetaminophen 500 mg capsuleIndications: Pain Take 2 capsules (1,000 mg total) by mouth every 6 (six) hours 50 tablet 1 06/13/19 22 albuterol 2.5 mg /3 mL (0.083 %) nebulizer solutionIndications :Bronchospastic Pulmonary Disease Take 1.5 mL (1.25 mg total) by nebulization every 6 (six) hours as needed for wheezing 75 mL 2 10/05/19 22 apixaban (ELIQUIS) 5 mg tabletIndications:a trial fibrillation Take 1 tablet (5 mg total) by mouth every 12 (twelve) hours 60 tablet 0 07/08/19 22 fluticasone furoate-vilanteroL (BREO ELLIPTA) 100-25 mcg/dose diskus inhaler Inhale 1 puff daily Rinse mouth with water after use. Do not swallow. 60 each 2 10/05/19 22 folic acid (FOLVITE) 1 mg tablet [...] by mouth every morning 06/13/19 22 metoprolol (LOPRESSOR) 100 mg tabletIndications:A trial fibrillation, unspecified type (HCC) Take 1 tablet (100 mg total) by mouth 2 (two) times a day 180 tablet 3 1 08/04/19 23 miconazole (SECURA THICK) 2 % cream Apply topically 2 (two) times a day 28.35 g 2 09/01/19 22 multivit,tx with iron,minerals (THERA-M ORAL) Take 1 [...] daily 30 tablet 11 0 10/05/19 22 pravastatin (PRAVACHOL) 40 mg tablet Take 40 mg by mouth daily 07/31/19 23 senna 1.76 mg/mL syrup Administer 5 mL (8.8 mg total) per feeding tube 2 (two) times a day 100 mL 2 10/05/19 22 terazosin (HYTRIN) 10 mg capsule Take 1 capsule (10 mg total) by mouth nightly 30 capsule 0 10/05/19 22 thiamine (VITAMIN B1) 100 mg tabletIndications:T hiamine Deficiency Take 100 mg by mouth every morning 07/31/19 23 traMADoL (ULTRAM) 50 mg tabletIndications:P ain Take 1 tablet (50 mg total) by mouth every 6 (six) hours as needed for pain 20 tablet 1 06/13/19 22 traZODone (DESYREL) 100 mg tabletIndications:i nsomnia Take 1 tablet (100 mg total) by mouth nightly 30 tablet 2 09/01/19 22 documented as of this encounter Discharge Disposition Disposition Code Departure Means Destination Discharge to home or self care documented in this encounter Plan of Treatment Not on file documented as of this encounter Procedures Procedure Name Priority Date/Time Associated Diagnosis Comments NEURO CT MR OUTSIDE CONSULT Routine 06/11/2021 7:53 PM PRIMER INSPECTOR Diagnosis unknown documented in this encounter Results * Neuro CT MR Outside Consult (06/11/2021 7:53 PM PRIMER INSPECTOR) Anatomical Region Laterality Modality N/A Computed Tomogra phy 06/12/2021 10:4 6 AM PRIMER INSPECTOR Impressions 06/12/2021 3:53 PM PRIMER INSPECTOR 1. ??Small amount of intraventricular hemorrhage layering [...] images may or may not represent the [place] source data set and thus may contain changes that may lower the accuracy of this second-opinion interpretation. Dictated by: Chelsy Joshi MD The radiology attending physician has personally reviewed this study, and had reviewed and/or edited this written report and agrees with it. Electronically signed by: Krista Rosado M.D. Narrative 06/12/2021 3:53 PM PRIMER INSPECTOR EXAMINATION: RADIOLOGY CONSULTATION ON OUTSIDE IMAGING STUDY STUDY INITIALLY PERFORMED: 06/11/2021 at [facility] TYPE OF STUDY: Multiple MRI images of [...] IMAGING STUDY STUDY INITIALLY PERFORMED: 06/11/2021 at [facility] TYPE OF STUDY: Multiple MRI images of [...] images may or may not represent the [place] source data set and thus may contain changes that may lower the accuracy of this second-opinion interpretation. Dictated by: Chelsy Joshi MD The radiology attending physician has personally reviewed this study, and had reviewed and/or edited this written report and agrees with it. Electronically signed by: Krista Rosado M.D. Belinda Shaffer MD PhD IMG CT PROCEDURES Mariangel l Result documented in this encounter Visit Diagnoses [...] documented as of this encounter Care Teams Continuity Writer Relationship Specialty Start Date End Date Jean-Claude Crawford MD [address] [place] [address] PCP - General Family Medicine 04/12/20 06/12/22 Jean-Claude Crawford MD [address] [place] [address] Family Medicine 04/12/20 documented as of this encounter
--- OUTSIDE RECORDS SUMMARY | 2024-04-08 10:38 | XMS_ITS | Encounter Summary ---
Author Organization [facility] Address [address] [place] [address] Phone Care Team Providers Care [employer] Name Role Phone Jean-Claude Crawford MD Primary Care Provider Jean-Claude Crawford MD Unavailable [phone] Encounter Details Date Type Department Care Team (Late st Contact Info) Description 07/25/[address] 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 Redman called Dr. Gomez' office. Pt is currently taking Ibuprofen 1600 mg every 5-6 hours &Tylenol 1287-4217 mg every 5-6 hours. ??Educated Mrs. Redman on max dosing Ibuprofen 2400 mg /day & Tylenol 4000 mg/day. ??Pt denies any signs of bleeding, infection or GI discomfort. Pt denies anyissues with bowel habits or urination. Discussed with Dr. Gomez, will refill Tramadol. Pt being seen in clinic on 07/29/20. documented in this encounter Plan of Treatment Not on file documented as of this encounter Visit Diagnoses Not on filedocumented in this encounter Discontinued Medications Medication Sig Discontinue Reason Start Date End Da te traMADoL (ULTRAM) 50 mg tabletIndications:Pain Take 1 tablet (50 mg total) by mouth every 6 (six) hours as needed for pain Reorder 07/15/2020 07/25/2020 documented as of this encounter Additional Health Concerns Infection Onset Date Last Indicated Resolved Time MDR gram neg/ESBL Comment:06/16/2021 IP Review - Pt with scrotal abscess, but is not actively draining (last documented draining on 06/14). Pt remains intubated so requires trach aspirate for isolation discontinuation. Provider notified. Amanda Walker RN 12/19/2019 12/19/2019 documented as of this encounter Care Teams [employer] Relationship Specialty Start Date End Date Jean-Claude Crawford MD [address] [facility] [address] [place] [address] PCP - General Family Medicine 04/12/20 06/12/22 Jean-Claude Crawford MD [address] [facility] [address] [place] [address] Family Medicine 04/12/20 documented as of this encounter
--- OUTSIDE RECORDS SUMMARY | 2024-04-08 10:38 | XMS_ITS | Encounter Summary ---
Author Organization [facility] Healthcare Address [address] [place] [address] Care Team Providers Care 1St Grade Teacher Name Role Phone Jean-Claude Crawford MD Primary Care Provider Jean-Claude Crawford MD Unavailable [phone] Encounter Details Date Type Department Care Team (Late st Contact Info) Description 07/04/2021 9:25 AM CDT Anesthesia Event [facility] Operating Room [address] [place] [address] Sumanth Barr MD [address] [place] [address] Bryson Villar DO [address] [place] [address] Anesthesia Record Procedure Summary Procedure Name Responsible Anesthesiologist Anesthesia Start Time Anesthesia Stop Time INTRAMEDULLARY NAILING FEMUR - ANTEGRADE - INTERTROCHANTERIC (Left: Leg Upper) Sumanth Barr MD 07/04/21 0925 07/04/21 1136 Events Date Time Event Comment 07/04/2021 0829 In Preop 0853 0925 An Start 0930 In Room 0930 An Start Data 0938 An Induction The patient was reevaluated immediately before moderate or deep sedation use and before anesthesia induction. 0942 An Intubation 0952 Anesthesia Ready 1006 Proc Start 1007 Incision Start 1116 Proc Fin 1125 An Extubation 1127 Out of Room 1136 Handoff to RN I completed my handoff [...] disposition at the time of handoff: PACU 1136 An Stop Meds Name Total lidocaine (cardiac) syringe 2 % 60 mg propofol 150 mg fentaNYL 100 mcg HYDROmorphone 2 mg/mL 0.5 mg succinylcholine 60 mg phenylephrine 100 mcg/mL 2,700 mcg ondansetron PF (ZOFRAN) 2 mg/mL injectio n 4 mg clindamycin 900 mg/50 mL 900 mg esmolol 50 mg phenylephrine infusion (100 mcg/mL) 14.1 mg vecuronium 6 mg norepinephrine 32 mcg calcium chloride 0.5 g NS 0.9% 2,000 mL Lactated Ringer's (LR) infusion 200 mL * Agents Name O2% N2O O2 Air Sevoflurane Desflurane Inspired Desflurane Inspired Sevoflurane * Blood No blood administrations on file. Lines, Drains, and Airways Type Details Placement Removal RETIRED Wound 06/27/21; 1425; MASD (Moisture associated skin damage); Perineum; , buttocks; 03/10/24 (Retired LDA, Removed/Completed by [facility] with LDA Utility); 1213 (Retired LDA, Removed/Completed by [facility] with LDA Utility) 06/27/21 1425 by Ani Chavez RN 03/10/24 1213 by Discharge Provider, Automatic Peripheral IV Placement Date: 07/03/21; Placement Time: 1306; Catheter Size: 20 G; Orientation: Anterior, Left; Location: Forearm; Removal Date: 10/05/21 07/03/21 1306 by Milagros Barrientos RN 10/05/21 0000 by Jemma Spivey RN Peripheral IV Placement Date: 07/04/21; Placement Time: 0947; Catheter Size: 16 G; Orientation: Right; Location: Hand; Site Prep: Chlorhexidine; Technique: Anatomical landmarks; Insertion Attempts: 1; Patient Tolerance: Tolerated well; Removal Date: 07/05/21; Removal Time: 1422; Removal Reason: Removed by patient 07/04/21 0947 by Can Floyd III, ZAINAB 07/05/21 1422 by Mercy Guajardo RN ETT Placement Date: 07/04/21; Placement Time: 0956 (created via procedure documentation); Mask Ventilation: 1; Technique: Video laryngoscopy; Type: ETT - single; Single Lumen Tube Size: 8 mm; Cuffed: Yes; Laryngoscope: Solange; Location: Oral; Insertion Attempts: 1; Placement Verification: Auscultation; Airway Comment: Anterior airway, bougie required to advance ETT through cords d/t sharp angle of bend.; Removal Date: 07/04/21; Removal Time: 1125 07/04/21 0956 by Can Floyd III, ZAINAB 07/04/21 1125 by Can Floyd III, ZAINAB RETIRED Surgical Site 07/04/21; 1031; Le ft; Leg; 07/30/22; Not present on admission 07/04/21 1031 by Candis Wu RN 07/30/22 0000 by Renetta Wise RN documented in this encounter Social History [...] Never 06/16/2021 How often do you attend adventist or quaker serv ices? 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 Gender Identity Not on file Sexual Orientation Not on file documented as of this encounter OR Notes * Anesthesia Postprocedure Evaluation - Latha Navarro MD - 07/04/2021 12:01 PM CDT Patient: Lloyd Redman Procedure Summary Date: 07/04/21 Room / Location: [facility] OR POD 2 ROOM 204 / [facility] OR POD 2 Anesthesia Start: 924 Anesthesia Stop: 1135 Procedure: INTRAMEDULLARY NAILING FEMUR - ANTEGRADE - INTERTROCHANTERIC (Left Leg Upper) Diagnosis: Closed nondisplaced intertrochanteric fracture of left femur, initial encounter ([facility]) (Closed nondisplaced intertrochanteric fracture of left femur, initial encounter ([facility]) [S72.800A]) Surgeons: Jessie Delvalle MD Responsible Provider: Sumanth Barr MD Anesthesia Type: general ASA Status: 3 Anesthesia Type: general Last vitals BP 122/77 Pulse 100 Temp 36.1 ??C (97 ??F) Resp 20 SpO2 100% Anesthesia Post Evaluation Patient location during evaluation: PACU Patient participation: complete - patient participated Level of consciousness: follows simple commands (A&O x1 (at baseline)) Pain management: satisfactory to patient Airway patency: adequate and patent Evidence of recall: unable to evaluate Cardiovascular status: acceptable and hemodynamically stable Respiratory status: acceptable and room air Hydration status: acceptable Pt is: normothermic Nausea/Vomiting status: none Comments: Appropriate for discharge back to floor No complications documented. * Anesthesia Procedure Notes - Can Floyd III, CRNA - 07/04/2021 9:54 AM CDTAssociated Order(s): Airway Airway Patient location: OR Urgency: elective Indications for airway management: anesthesia Difficult airway: no Staff: Placed by: SOFTWARE IMPLEMENTATION PROJECT MANAGER: Can Floyd III, CRNA Emergent airway documentation: Risks and benefits discussed: yes Consent obtained: yes Consent given by: spouse Airway prep: Preoxygenated: yes Patient position: sniffing MILS maintained throughout: yes Mask difficulty assessment: 1 - vent by mask Spontaneous ventilation during airway: absent Sedation level during airway: GA Final airway details: Final airway type: endotracheal airway Tube type: ETT ETT size: 8.0 mm Cuffed: yes Technique used for successful ETT placement: video laryngoscopy Devices/Methods used in placement: flexible tip bougie Insertion site: oral Blade type: Solange Video blade type: Gonzalez Cormack-Lehane (video): grade I - full view of glottis Cuff volume: 10 mL Cuff inflated with: air ETT to lips: 24 cm Placement verified by: auscultation Airway secured with: silk tape Number of attempts: 1 Additional comments: Anterior airway, bougie required to advance ETT through cords d/t sharp angle of bend. * Anesthesia Preprocedure Evaluation - Sumanth Barr MD - 07/03/2021 11:29 PM CDT Images from the original note were not included. [facility] for Preoperative Assessment and Planning Preoperative Evaluation Record Evaluation type/location: IPAP at [facility] Planned procedure site: [facility] (Pod[facility] 2[facility]3/5/[facility]) Date: 07/03/21 Anesthesia Evaluation Lloyd Redman is a 71 y.o. male Procedure(s): INTRAMEDULLARY NAILING FEMUR - ANTEGRADE - INTERTROCHANTERIC Pre-Op Diagnosis Codes: * Closed nondisplaced intertrochanteric fracture of left femur, initial encounter ([facility]) [S72.145A] HISTORY HPI Lloyd Redman is a 71 y.o. male with [...] alcohol alcohol use who was transferred to [facility] 06/11 from OSH after being found to have trace traumaticSAH and IVH following a recent fall. Past Medical History Neurological + CVA/Stroke (Admitted for SAH and IVH, has had ongoing AMS. Neurology consulted stating it is multifactorial due to delirium, post concussive syndrome, and elderly and already atrophied brain. Baseline AxOx1 ) Cardiovascular + Hypertension + CHF + Atrial fibrillation/flutter - Respiratory + COPD Hepatic / Heme + History of anemia Gastrointestinal + GERD Functional Capacity Functional capacity: <4 METs PAT Summary and Plans Additional comments: Lloyd Redman is a 71 y.o. male who is being evaluated prior to undergoing an intermediate cardiac risk open vascular surgery. Revised Cardiac Risk Index factors are (history of CHF) for a total RCRI of 1 out of 6. Functional capacity is <4 METs. Blood bank needs for day of procedure: Type and Screen only Preoperative evaluation performed by Bryson Villar DO on 07/03/21 at 11:34 PM. Relevant diagnostics: ECG(s): 06/13/[address] and T wave abnormality Prolonged QT Abnormal ECG When compared with ECG of 12-JUN-2021 12:13, Vent. rate has decreased BY ??70 BPM Nonspecific T wave abnormality, worse in Anterolateral leads Echocardiogram(s): TTE 06/13/21 LA is mildly dilated. Normal RV cavity size and function. LV cavity size is normal. Concentric LV remodeling with normal EF=70-75%. Normal Inferior vena cava. Dilated JOSE RAFAEL=4.7 cm and ascending aorta=3.9 cm. No previous study. Stress test(s): Nuclear Stress Test 06/15/20 Conclusions: 1. Left ventricular ejection fraction is 38 %. There is moderate LV dysfunction. 2. Myocardial perfusion imaging is normal. Heart rate increase is not required for adequate pharmacologic vasodilator stress. Cardiac catheterization(s): N/A PFT(s): N/A Vascular studies: N/A Other: N/A. Patient Active Problem List Diagnosis ??? Hypercholesterolemia [...] Reactions ??? Penicillins Hives Med List Status: In Progress Set By: Romy Trent NP at 06/12/2021 1:56 PM Taking? Last Dose Start Date End Date Provider apixaban (ELIQUIS) 5 mg tablet () 02/22/20 01/25/21 Abiodun Rodgers MD Take 1 tablet (5 mg total) by mouth every 12 (twelve) hours Patient taking differently: Take 5 mg by mouth every 12 (twelve) hours Last dose 07/08/20 cholecalciferol (VITAMIN D-3) 5,000 unit tablet -- -- ProviderManish MD folic acid (FOLVITE) 1 mg tablet () 02/22/20 01/25/21 Abiodun Rodgers MD Take 1 tablet (1 mg total) by mouth daily Patient taking differently: Take 1 mg by mouth every morning furosemide (LASIX) 40 mg tablet () 02/22/20 02/21/21 Abiodun Rodgers MD Take 1 tablet (40 mg total) by mouth 2 (two) times a day Patient taking differently: Take 40 mg by mouth daily lisinopriL (PRINIVIL,ZESTRIL) 40 mg tablet () 02/23/20 02/22/21 Abiodun Rodgers MD Take 1 tablet (40 mg total) by mouth daily Patient taking differently: Take 40 mg by mouth every morning metoprolol (LOPRESSOR) 100 mg tablet 01/30/21 01/30/22 Abiodun Novak MD Take 1 tablet (100 mg total) by mouth 2 (two) times a day multivit,tx with iron,minerals (THERA-M ORAL) -- -- Manish Cabezas MD pantoprazole DR (PROTONIX) 40 mg EC tablet () 02/23/20 02/22/21 Abiodun Rodgers MD Take 1 tablet (40 mg total) by mouth daily Patient taking differently: Take 40 mg by mouth every morning pravastatin (PRAVACHOL) 40 mg tablet -- -- Manish Cabezas MD terazosin (HYTRIN) 10 mg capsule () 02/22/20 01/25/21 Abiodun Rodgers MD Take 1 capsule (10 mg total) by mouth nightly Patient taking differently: Take 10 mg by mouth nightly thiamine (VITAMIN B1) 100 mg tablet -- -- Manish Cabezas MD Current Facility-Administered Medications: ??? acetaminophen (TYLENOL) tablet 650 mg, 650 mg, feeding tube, Q4H PRN, 650 mg at 06/18/21 0035 ??? albuterol 2.5 mg/0.5 mL nebulizer solution 1.25 mg, 1.25 mg, nebulization, Q6H PRN (RT) ??? docusate (COLACE) 10 mg/mL oral liquid 100 mg, 100 mg, feeding tube, Daily, 100 mg at 07/03/21 1052 ??? fluticasone furoate-vilanteroL (BREO ELLIPTA) 100-25 mcg/dose inhaler 1 puff, 1 puff, inhalation, Daily (RT), 1 puff at 07/03/21 0910 ??? metoprolol tartrate (LOPRESSOR) immediate release tablet 50 mg, 50 mg, feeding tube, BID, 50 mgat 07/03/212237 ??? miconazole (SECURA THICK) 2 % cream, , topical, BID, Given at 07/03/212237 ??? dhjfmcqv-lkv-fmzxwqu gluconate (CENTRUM) 0.6 mg iron/mL oral liquid 15 mL, 15 mL, feeding tube,Daily, 15 mL at 07/03/21 1052 ??? pantoprazole (PROTONIX) 4 mg/mL injection 40 mg, 40 mg, intravenous, Daily, 40 mg at 07/03/21 1051 ??? pravastatin (PRAVACHOL) tablet 40 mg, 40 mg, feeding tube, Daily, 40 mg at 07/03/21 105 ??? ramelteon (ROZEREM) tablet 8 mg, 8 mg, feeding tube, Nightly, 8 mg at 07/03/21 1802 ??? senna 1.76 mg/mL syrup 8.8 mg, 8.8 mg, feeding tube, BID, 8.8 mg at 07/03/212236 ??? sodium chloride 0.9% flush 0.5-20 mL, 0.5-20 mL, intra-catheter, Q8H MONET, 10 mL at 07/03/212238 ??? sodium chloride 0.9% flush 0.5-20 mL, 0.5-20 mL, intra-catheter, PRN, 10 mL at 06/25/21 0745 ??? terazosin (HYTRIN) capsule 10 mg, 10 mg, feeding tube, Nightly, 10 mg at 07/03/212235 ??? thiamine (VITAMIN B1) tablet 100 mg, 100 mg, feeding tube, Daily, 100 mg at 07/03/21 1052 ??? traZODone (DESYREL) tablet 100 mg, 100 mg, feeding tube, Nightly, 100 mg at 07/03/212236 Social History Tobacco Use Smoking Status Current [...] Father ??? Anesthesia problems Neg Hx Vitals: 07/03/21 1554 07/03/21 2111 07/03/21 2235 BP: 143/94 Pulse: 101 103 Resp: 16 Temp: 36.3 ??C (97.3 ??F) SpO2: 96% PT: 07/03/2021: 12.8 sec INR: 07/03/2021: 1.2 APTT: 06/11/2021: 31 sec Hgb A1C: 06/12/2021: 5.2 % CBC RBC: 07/03/2021: 3.45 M/cumm (L) RDW: No results found for requested labs within last 720 hours. MCHC: 07/03/2021: 34.7 g/dL MCH: 07/03/2021: 34.2 pg (H) MCV: 07/03/2021: 98.6 fL (H) Hct: 07/03/2021: 34.0 % (L) Hgb: 07/03/2021: 11.8 g/dL (L) WBC: 07/03/2021: 6.5 K/cumm MPV: 07/03/2021: 10.2 fL Platelets: 07/03/2021: 185 K/cumm RDW CV: 07/03/2021: 12.2 % RDW Sd: 07/03/2021: 44.1 fL BMP Glucose: 07/03/2021: 106 mg/dL Calcium: 07/03/2021: 9.6 mg/dL Sodium: 07/03/2021: 140 mmol/L Potassium: 07/03/2021: 4.4 mmol/L CO2: 07/03/2021: 29 mmol/L Chloride: 07/03/2021: 105 mmol/L BUN: 07/03/2021: 13 mg/dL Creatinine: 07/03/2021: 0.75 mg/dL (L) Allisonptdieudonne Pantojaptdieudonne Total Score: 12 DOS Physical Exam Medical history, medications, and allergies reviewed. Attestation: With today's edits, I endorse the findings of the anesthesia pre-evaluation assessment dated: 07/03/2021. Airway Exam: Mallampati: III Cervical ROM: FROM Cardiovascular Exam: Rate: regular Rhythm: regular Negative for Murmur Pulmonary Exam: LCTA, bilat EENT Exam: trachea midline Dental Exam: Poor dentition Skin Exam: Turgor is normal. Abdominal Exam: Abdomen is soft. Current state: Patient's current state is withdrawn and resistant. Anesthesia Plan ASA 3 My patient is approved for the Anesthesia Controlled Medication protocol when under care of a SOFTWARE IMPLEMENTATION PROJECT MANAGER Planned anesthesia: General Team communication plan: oral ET tube Induction: Induction: intravenous. Postoperative Plan: Postoperative administration opioids intended. No postoperative mechanical ventilation intended. Patient's planned disposition post procedure is Floor. Informed Consent: Discussed plan with SOFTWARE IMPLEMENTATION PROJECT MANAGER. Anesthesia plan and risks discussed with patient. [...] Procedure Name Priority Date/Time Associated Diagnosis Comments AL AN PROCEDURE PLACEHOLDER Routine 07/04/2021 9:54 AM CDT AL AN ELECTIVE ENDOTRACHEAL AIRWAY Routine 07/04/2021 9:54 AM CDT documented in this encounter Results * AL AN ELECTIVE ENDOTRACHEAL AIRWAY, AL AN PROCEDURE PLACEHOLDER (07/04/2021 9:54 AM CDT) Narrative Can Floyd III, CRNA - 07/04/2021 9:54 AM CDT Can Floyd III, CRNA ? 07/04/2021 ??9:56 AM Airway Patient location: OR Urgency: elective Indications for airway management: anesthesia Difficult airway: no Staff: Placed by: SOFTWARE IMPLEMENTATION PROJECT MANAGER: Can Floyd III, ZAINAB Emergent airway documentation: Risks and benefits discussed: yes Consent obtained: yes Consent given by: spouse Airway prep: Preoxygenated: yes Patient position: sniffing MILS maintained throughout: yes Mask difficulty assessment: 1 - vent by mask Spontaneous ventilation during airway: absent Sedation level during airway: GA Final airway details: Final airway type: endotracheal airway Tube type: ETT ETT size: 8.0 mm Cuffed: yes Technique used for successful ETT placement: video laryngoscopy Devices/Methods used in placement: flexible tip bougie Insertion site: oral Blade type: Solange Video blade type: Gonzalez Cormack-Lehane (video): grade I - full view of glottis Cuff volume: 10 mL Cuff inflated with: air ETT to lips: 24 cm Placement verified by: auscultation Airway secured with: silk tape Number of attempts: 1 Additional comments: Anterior airway, bougie required to advance ETT through cords d/t sharp angle of bend. us Sumanth Barr MD ANESTHESIA ORDERABLES Mariangel clifford Result documented in this encounter Visit Diagnoses Not on filedocumented in this encounter Administered Medications Inactive Administered Medications - up to 3 most recent administrations Medication Order MAR Action Action Date Dose Rate Site calcium chloride IV syringe intravenous, As needed, Starting on Sat07/04/21 at 1035, Anesthesia Intra-op Given 07/04/2021 10:35 AM CDT 0.5 g clindamycin (CLEOCIN) 900 mg/50 mL in sodium chloride 0.9% (premix) piggyback intravenous, Administer over 30 Minutes, As needed, Starting on Sat07/04/21 at 0953, Anesthesia Intra-op Given 07/04/2021 9:53 AM CDT 900 mg esmoloL (BREVIBLOC) injection intravenous, Administer over 1 Minutes, As needed, Starting on Sat07/04/21 at 0944, Anesthesia Intra-op Given 07/04/2021 9:44 AM CDT 50 mg fentaNYL (SUBLIMAZE) preservative free injection intravenous, As needed, Starting on Sat07/04/21 at 0938, Anesthesia Intra-op Given 07/04/2021 9:38 AM CDT 100 mcg HYDROmorphone (DILAUDID) injection intravenous, Administer over 2 Minutes, As needed, Starting on Sat07/04/21 at 1112, Anesthesia Intra-op Given 07/04/2021 11:12 AM CDT 0.5 mg Lactated Ringer's (LR) infusion 30 mL/hr, intravenous, Continuous, Starting on Sat07/04/21 at 0915, Pre-Op New Bag 07/04/2021 9:25 AM CDT lidocaine (cardiac) (XYLOCAINE) preservative free injection intravenous, As needed, Starting on Sat07/04/21 at 0938, Anesthesia Intra-op, Indications: Ventricular ArrhythmiasIndications:Ventricul ar Arrhythmias Given 07/04/2021 9:38 AM CDT 60 mg norepinephrine (LEVOPHED) injection intravenous, As needed, Starting on Sat07/04/21 at 1033, Anesthesia Intra-op Given 07/04/2021 10:41 AM CDT 16 mcg Given 07/04/2021 10:33 AM CDT 16 mcg ondansetron (ZOFRAN) injection intravenous, Administer over 2 Minutes, As needed, Starting on Sat07/04/21 at 1049, Anesthesia Intra-op Given 07/04/2021 10:49 AM CDT 4 mg phenylephrine (CON-SYNEPHRINE) 1 mg/10 mL (100 mcg/mL) in sodium chloride 0.9% (premix) intravenous, As needed, Starting on Sat07/04/21 at 0959, Anesthesia Intra-op Given 07/04/2021 10:30 AM CDT 500 mc g Given 07/04/2021 10:26 AM CDT 200 mcg Given 07/04/2021 10:08 AM CDT 500 mcg phenylephrine (CON-SYNEPHRINE) 5 mg/50 mL (100 mcg/mL) in sodium chloride 0.9% (premix) intravenous, Continuous PRN, Starting on Sat07/04/21 at 0936, Anesthesia Intra-op Rate/Dose Change 07/04/2021 11:13 AM CDT 1.2 mcg/kg/min 64.8 mL/hr Rate/Dose Change 07/04/2021 10:46 AM CDT 1.6 mcg/kg/min 86 .4 mL/hr Rate/Dose Change 07/04/2021 10:40 AM CDT 2 mcg/kg/min 108 mL/hr propofoL (DIPRIVAN) 10 mg/mL IV intravenous, As needed, Starting on 07/04/21 at 0938, Anesthesia Intra-op Given 07/04/2021 9:38 AM CDT 150 mg sodium chloride 0.9% infusion intravenous, Continuous PRN, Starting on 07/04/21 at 0947, Anesthesia Intra-op New Bag 07/04/2021 10:16 AM CDT New Bag 07/04/2021 9:47 AM CDT succinylcholine (ANECTINE) injection intravenous, As needed, Starting on e 07/04/21 at 0938, Anesthesia Intra-op Given 07/04/2021 9:38 AM CDT 60 mg vecuronium (NORCURON) injection intravenous, Administer over 1 Minutes, As needed, Starting on Sat07/04/21 at 0946, Anesthesia Intra-op Given 07/04/2021 9:46 AM CDT 6 mg documented in this encounter Additional Health Concerns Infection Onset Date Last Indicated Resolved Time MDR gram neg/ESBL Comment:06/16/2021 IP Review - Pt with scrotal abscess, but is not actively draining (last documented draining on 06/14). Pt remains intubated so requires trach aspirate for isolation discontinuation. Provider notified. Amanda Walker RN 12/19/2019 12/19/2019 documented as of this encounter Care Teams 1St Grade Teacher Relationship Specialty Start Date End Date Jean-Claude Crawford MD [address] [place] [address] PCP - General Family Medicine 04/12/20 06/12/22 Jean-Claude Crawford MD [address] [place] [address] Family Medicine 04/12/20 documented as of this encounter
--- OUTSIDE RECORDS SUMMARY | 2024-04-08 10:38 | XMS_ITS | Encounter Summary ---
Author Organization [facility] Healthcare Address [address] [place] [address] Care Team Providers Care Commercial Development Manager Name Role Phone Jean-Claude Crawford MD Primary Care Provider Jean-Claude Crawford MD Unavailable [phone] Reason for Visit * Hospital - Outpatient (Routine) - Closed Specialty Diagnoses / Procedures Referred By Contac t Referred To Contact Diagnoses Atrial fibrillation, unspecified type (HCC) Chronic systolic heart failure (CMS/HCC) (HCC) Procedures NM MPI SPECT (Rest and/or Stress) Multiple Studies Christopher Horton MD [address] [place] [address] Phone: tel: fax: [facility] [place] [address] [place] [address] Referral ID Status Reason Start Date Expiration Date Visits Re quested Visits Authorized [id number] Closed 08/25/2020 10/23/2020 5 5 Encounter Details Date Type Department Care Team (Latest Contact Info) Description 08/30/2020 10:25 AM CDT Hospital Encounter [facility] OP Cardiac Testing [address] [place], [place] [id number] Christopher Horton MD [address] [place] [address] Discharge Disposition: Discharge to home or self [...] on file 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 Gender Identity Not on file Sexual Orientation [...] for pain 20 tablet 1 06/13/19 22 documented as of this encounter Discharge Disposition Disposition Code Departure Means Destination Discharge to home or self care documented in this encounter Plan of Treatment Not on file documented as of this encounter Procedures Procedure Name Priority Date/Time Associated Diagnosis Comments NM MPI SPECT (REST AND/OR STRESS) MULTIPLE STUDIES Schedule Routine, Read Routine (OP Routine) 08/30/2020 2:10 PM CDT Atrial fibrillation, unspecified type (CMS/HCC) Chronic systolic heart failure (CMS/HCC) documented in this encounter Results * NM MPI SPECT (Rest and/or Stress) Multiple Studies (08/30/2020 2:10 PM CDT) Anatomical Region Laterality Modality Body N/A Nuclear Medicine 08/30/2020 10:4 8 AM CDT Narrative 08/30/2020 3:31 PM CDT [facility] [address] [place] [address] MPI Imaging Report Patient Name: JANIA GUAJARDO A : 1950 Study Date: 08/30/2020 10:48:43 AM Gender: M Tech: Little Hart RN, ANPMinalC Location: Ref.Provider: CHRISTOPHER HORTON Height(Cm): BSA: Weight(Kg): Heart Rate: 128 Order Provider: CHRISTOPHER HORTON Procedures: Pharmacologic SPECT Report.: Myocardial perfusion imaging with Sestamibi SPECT at rest and post regadenoson (Lexiscan) infusion. Indications: Atrial Fibrillation. Findings: Procedure Data: One day rest/stress protocol was used with IV site located at right hand. Lexiscan Protocol. Sestamibi injected IV at rest was 8.5 millicuries. Rest SPECT imaging was performed 30 minutes post injection. Lexiscan 0.4mg given IV over 10 seconds. Sestamibi injected IV post Lexiscan was 25.4 millicuries. Stress SPECT Gated imaging was performed 45 minutes post Lexiscan injection. TID: 0.95. Resting HR 109 bpm. Peak HR: 128 bpm. Predicted Maximal HR 151 bpm. Percent Max Predicted HR Achieved: 84.8 %. Baseline BP: 170/100 mmHg. Peak BP: 124/70 mmHg. Performed By: HEAVENLY Wu. Reason for Termination: Lexiscan protocol complete. Resting ECG: Atrial fibrillation. Septal Q waves concerning for prior infarction. Post Pharm ECG: No diagnostic ST changes. Arrhythmia: Rare PVCs. Cardiac Symptoms With Stress: Symptoms with stress were Dyspnea. Symptoms were resolved with rest and caffeine. BP Response: Blood pressure response is appropriate. Perfusion: Normal perfusion imaging. Technical quality of study is good. LV Function: Left ventricular ejection fraction is 38 %. There is moderate LV dysfunction. [employer] PostPharm: There is moderate global hypokinesis. Conclusions: 1. Left ventricular ejection fraction is 38 %. There is moderate LV dysfunction. 2. Myocardial perfusion imaging is normal. Heart rate increase is not required for adequate pharmacologic vasodilator stress. Electronically Signed By: Christopher Horton MD, [facility] 2020-08-30 15:31:45 CDT Procedure Note Christopher Horton MD - 08/30/2020 [facility] [address] [place] [address] MPI Imaging Report Patient Name: JANIA GUAJARDO APatient ID: [id number] : [id number] Date: 08/30/2020 10:48:43 AM Gender: MAccession #: [id number] Tech: Little Hart RN, ANP-CLocation: SP Ref.Provider: Johnie HORTONight(Cm): BSA: Weight(Kg): Heart Rate: 128Order Provider: CHRISTOPHER HORTON Procedures: Pharmacologic SPECT Report.: Myocardial perfusion imaging with Sestamibi SPECT at rest and postregadenoson (Lexiscan) infusion. Indications: Atrial Fibrillation. Findings: Procedure Data: One day rest/stress protocol was used with IV site located at right hand.Lexiscan Protocol. Sestamibi injected IV at rest was 8.5 millicuries. Rest SPECTimaging was performed 30 minutes post injection. Lexiscan 0.4mg given IV over 10seconds. Sestamibi injected IV post Lexiscan was 25.4 millicuries. Stress SPECT Gated imagingwas performed 45 minutes post Lexiscan injection. TID: 0.95. Resting HR 109 bpm. PeakHR: 128 bpm. Predicted Maximal HR 151 bpm. Percent Max Predicted HR Achieved: 84.8 %.Baseline BP: 170/100 mmHg. Peak BP: 124/70 mmHg. Performed By: HEAVENLY Wu. Reason for Termination: Lexiscan protocol complete. Resting ECG: Atrial fibrillation. Septal Q waves concerning for prior infarction. Post Pharm ECG: No diagnostic ST changes. Arrhythmia: Rare PVCs. Cardiac Symptoms With Stress: Symptoms with stress were Dyspnea. Symptoms were resolved with rest andcaffeine. BP Response: Blood pressure response is appropriate. Perfusion: Normal perfusion imaging. Technical quality of study is good. LV Function: Left ventricular ejection fraction is 38 %. There is moderate LVdysfunction. [employer] PostPharm: There is moderate global hypokinesis. Conclusions: 1. Left ventricular ejection fraction is 38 %. There is moderate LVdysfunction. 2. Myocardial perfusion imaging is normal. Heart rate increase is notrequired for adequate pharmacologic vasodilator stress. Electronically Signed By: Christopher Horton MD, [facility] 2020-08-30 15:31:45 CDT Christopher Horton MD IMG NM PROCEDURES Final R esult documented in this [...] documented as of this encounter Care Teams Commercial Development Manager Relationship Specialty Start Date End Date Jean-Claude Crawford MD [address] [place] [address] PCP - General Family Medicine 04/12/20 06/12/22 Jean-Claude Crawford MD [address] [place] [address] Family Medicine 04/12/20 documented as of this encounter
--- OUTSIDE RECORDS SUMMARY | 2024-04-08 10:38 | XMS_ITS | Encounter Summary ---
Author Organization [facility] Address [address] [place] [address] Care Team Providers Care Hazardous Substances Scientist Name Role Phone Jean-Claude Crawford MD Primary Care Provider Jean-Claude Crawford MD Unavailable [phone] Reason for Referral * Hospital - Outpatient (Routine) - Closed Specialty Diagnoses / Procedures Referred By Contac t Referred To Contact Diagnoses Atrial fibrillation, unspecified type (HCC) Chronic systolic heart failure (CMS/HCC) (HCC) Procedures NM MPI SPECT (Rest and/or Stress) Multiple Studies Christopher Novak MD [address] [place] [address] Phone: tel: fax: [facility] [address] [place] [address] Referral ID Status Reason Start Date Expiration Date Visits Re quested Visits Authorized [id number] Closed 08/25/2020 10/23/2020 5 5 D OF EDUCATION SECRETARY * Hospital - Outpatient (Routine) - Closed Specialty Diagnoses / Procedures Referred By Contac t Referred To Contact Diagnoses Atrial fibrillation, unspecified type (HCC) Chronic systolic heart failure (CMS/HCC) (HCC) Procedures 48 HR Holter Monitor Christopher Novak MD [address] [address] Phone: tel: fax: [place] [id number] [place] [address] Referral ID Status Reason Start Date Expiration Date Visits Re quested Visits Authorized [id number] Closed 06/15/2020 09/22/2020 1 1 D OF EDUCATION SECRETARY * Hospital - Outpatient (Routine) - Closed Specialty Diagnoses / Procedures Referred By Contac t Referred To Contact Diagnoses Atrial fibrillation, unspecified type (HCC) Chronic systolic heart failure (CMS/HCC) (HCC) Procedures Transthoracic Echo [place] [address] [place] [address] Phone: tel: fax: [address] [place] [address] Referral ID Status Reason Start Date Expiration Date Visits Re quested Visits Authorized [id number] Closed 08/25/2020 10/23/2020 1 1 D OF EDUCATION SECRETARY Reason for Visit * Reason Comments Atrial Fibrillation Hyperlipidemia Encounter Details Date Type Department Care Team (Late st Contact Info) Description 06/15/2020 2:00 PM BOARD OF EDUCATION SECRETARY Office Visit [facility] Cardiology [address], [place] [address] Christopher Novak MD [address] [address] Atrial fibrillation, unspecified type (CMS/HCC) (Primary Dx); Lipid screening; Anticoagulation management encounter; Chronic systolic heart failure (CMS/HCC) Social History Tobacco Use Types Packs/Day Years Used Date Smoking Tobacco: Every Day Cigarettes Smokeless Tobacco: Never Alcohol Use Standard Drinks/Week Comments Yes 0 (1 standard drink = 0.6 oz pur e alcohol) limited Sex and Gender Information Value Date Recorded Sex Assigned at Not on file Legal Sex Male 9:10 PM BOARD OF EDUCATION SECRETARY Gender Identity Not on file Sexual Orientation Not on file documented as of this encounter Last Filed Vital Signs Vital Sign Reading Time Taken Comments Blood Pressure 132/84 06/15/2020 1:41 PM BOARD OF EDUCATION SECRETARY Pulse 115 06/15/2020 1:41 PM BOARD OF EDUCATION SECRETARY Temperature - - Respiratory Rate - - Oxygen Saturation 98% 06/15/2020 1:41 PM BOARD OF EDUCATION SECRETARY Inhaled Oxygen Concentration - - Weight 85.3 kg (188 lb) 06/15/2020 1:41 PM BOARD OF EDUCATION SECRETARY Height 180.3 cm (5' 11 ) 06/15/2020 1:41 PM BOARD OF EDUCATION SECRETARY Body Mass Index 26.22 06/15/2020 1:41 PM BOARD OF EDUCATION SECRETARY documented in this encounter Patient Instructions * Patient Instructions* Yolie Vizcarra MA - 06/15/2020 2:00 PM BOARD OF EDUCATION SECRETARY ECHO PREP: OUTPATIENT CARDIOLOGY TESTING BUILDING [address] (SECOND FLOOR) EXIT ELEVATORS TO THE RIGHT AND MAKE A RIGHT DOWN THE ANGEL, OFFICE IS ON THE LEFT SIDE, PAST RESTROOMS. WEAR COMFORTABLE CLOTHING AVOID LOTION, COLOGNES, OR PERFUMES ON CHEST AREA. NO FASTING RESTRICTIONS. TAKE ALL YOUR MEDICATIONS USUAL. OFFICE WILL CALL YOU WITH TEST RESULTS STRESS TEST PREP: OUTPATIENT CARDIOLOGY TESTING BUILDING [address] (SECOND FLOOR) EXIT ELEVATORS TO THE RIGHT AND MAKE A RIGHT DOWN THE ANGEL, OFFICE IS ON THE LEFT NEAR RESTROOMS. OFFICE WILL CALL YOU FOR YOUR TEST DATE AND TIME. NOTHING TO EAT OR DRINK 6 HOURS PRIOR. NO CAFFEINE 24 HOURS PRIOR, THAT INCLUDES DECAFFEINATED PRODUCTS.( ETC. CHOCOLATE. ) IF YOU ARE DIABETIC: SET INSULIN PUMP TO BASAL HOLD INSULIN BEFORE NOON AND BRING WITH YOU IF TEST IS IN THE MORNING. TAKE 1/2 DOSE OF INSULIN AND EAT A LIGHT BREAKFAST IF TEST IS IN THE AFTERNOON. HOLD ORAL DIABETIC MEDICATIONS MORNING OF YOUR TEST AND BRING THEM WITH YOU PLEASE WEAR COMFORTABLE SHOES AND CLOTHING. NO LOTIONS OR COLOGNES ON CHEST. PLEASE TAKE ALL YOUR USUAL MEDICATIONS (SMALL SIP OF WATER) PLEASE BRING WITH YOU: ID AND INSURANCE CARDS LIST OF CURRENT MEDICATIONS INHALER IF YOU USE ONE WEAR COMFORTABLE WALKING SHOES D OF EDUCATION SECRETARY documented in this encounter Progress Notes * Christopher Novak MD - 06/15/2020 2:00 PM CST Images from the original note were not included. [facility] [address], [place] [address] Cardiology Lakhwinder Chaudhry, MD Donavan Davila, MD Ray Marmolejo, MD Ray Terrazas, MD Kerwin Joyce, DO Christopher Novak, MD Clarence Wilkes, MD Charis Park, MD Rehana Thompson, DO Pedro Luis Mccormack, MD Andreas Wheeler, MD Paradise Martin, GARIMA Mckeon, GARIMA Palacios, NEUROLOGY PROFESSOR Patient Name: Jania Guajardo Provider: Christopher Novak M.D. : 1950 Date of Service: 06/15/2020 Referring: Yvette CHIEF COMPLAINT: Atrial Fibrillation and Hyperlipidemia HISTORY OF PRESENT ILLNESS: 70 y.o. male with a history of atrial fibrillation asked to see in cardiology consultation. The he was diagnosed with atrial fibrillation last July. I was not aware of it prior to that. Versus during admissions for acute illness and infections. He had wbhzxyhph-pr-plbvnht heart rates. An echocardiogram done at that timeshowed a mild impairment of LV function, ejection fraction 45-50%. Nosignificant valvular disease. Subsequent to that he has been managed strategy of rate control antico agulation. Reviewing records from multiple admissions over the last year she appears at times his rate control is been now problematic. He spent the most of last year and now the hospital with the intra-abdominal abscesses of and recurrent of sepsis. He is now home from rehab. He has declined home health, however, the states that his heart rate on typically is about 80 at home. He is ambulatory, not particularly strenuous. Does not affirm any exertional angina. No limiting exertional dyspnea. He did have issues with the lower extremity edema previously been on his current diuretic dose of that appears to be well controlled. Today's EKG shows atrial fibrillation with rapid rate 118 beats per minute. Septal infarct pattern,otherwise unremarkable. He tells me he has plans for upcoming cholecystectomy. LDL today is 80 Metabolic panel in February with normal renal function electrolytes Past Medical History: Diagnosis Date ??? Atrial fibrillation (CMS/HCC) ??? BPH (benign prostatic hyperplasia) ??? CHF (congestive heart failure) (CMS/HCC) ??? Cholecystitis ??? GERD (gastroesophageal reflux disease) ??? Hyperlipidemia ??? Hypertension ??? TIA (transient ischemic attack) Family History Problem Relation Age of Onset ??? Lung cancer Father Social History Socioeconomic History ??? Marital status: Single Spouse name: None ??? Number of children: None ??? Years of education: None ??? Highest education level: None Occupational History ??? None Tobacco Use ??? Smoking status: Current Every Day Smoker Packs/day: 1.00 ??? Smokeless tobacco: Never Used Substance and Sexual Activity ??? Alcohol use: Yes Comment: limited ??? Drug use: Never ??? Sexual activity: None Other Topics Concern ??? None Social History Narrative Cigarette smoker : (Added by TW Conv) Social Determinants of Health Financial Resource Strain: ??? Difficulty of Paying Living Expenses: Food Insecurity: ??? Worried About Running Out of Food in the Last Year: ??? Ran Out of Food in the Last Year: Transportation Needs: ??? Lack of Transportation (Medical): ??? Lack of Transportation (Non-Medical): Physical Activity: ??? Days of Exercise per Week: ??? Minutes of Exercise per Session: Stress: ??? Feeling of Stress : Social Connections: ??? Frequency of Communication with Friends and Family: ??? Frequency of Social Gatherings with Friends and Family: ??? Attends [employer] Services: ??? Active Member of Clubs or Organizations: ??? Attends Club or Organization Meetings: ??? Marital Status: Intimate Partner Violence: ??? Fear of Current or Ex-Partner: ??? Emotionally Abused: ??? Physically Abused: ??? Sexually Abused: PHYSICAL EXAM: BP 132/84 Pulse 115 Ht 180.3 cm (5' 11 ) Wt 85.3 kg (188 lb) SpO2 98% BMI 26.22 kg/m?? Body mass index is 26.22 kg/m??. General: Well appearing, No pain or distress, well nourished Eyes:Conjuctiva Clear ENT: External ears/nose normal Mouth: moist oral mucosa, good dentition Neck: Supple Respiratory: Clear to ausculation bilaterally; no wheezing/rales/rhonchi; respirations non-labored,good effort and excursion Cardiovascular: Tachycardic, irregular,normal PMI, normal S1 and S2. No S3 or S4. No murmers or rubs. Carotid upstrokes brisk bilaterally and without bruits Gastrointestinal: soft, non-tender abdomen, no hepatic congestion, no abnormal aortic pulsation Extremities: warm and well perfused with no cyanosis, clubbing, or edema Pulses: intact and symmetric Musculoskeletal: no obvious joint deformities, using walker Skin: no obvious rash or bruising Psychiatric: normal mood and affect Neurologic: awake/alert, no focal deficits ASSESSMENT & PLAN: Diagnoses and all orders for this visit: Atrial fibrillation, unspecified type (CMS/HCC) (Primary) Assessment & Plan: Rates rapid today however, states not rapid at home. Suspect need higher dose of beta-edmund,however, will assess further with Holter. Further recommendations forthcoming. Continue anticoagulation. Orders: - ECG 12 lead - Basic metabolic panel; Future - Transthoracic Echo Complete W Doppler/CF; Future - 48 HR Holter Monitor; Future - NM MPI SPECT (Rest and/or Stress) Multiple Studies; Future Lipid screening - POCT lipid panel Anticoagulation management encounter Chronic systolic heart failure (CMS/HCC) Assessment & Plan: Previously mild last assessed in July last year, likely tachycardia mediated but significant risk factors for CAD in no recent ischemic evaluation. I would favor pharmacologic stress SPECT. Seems zaire tolerating current guideline medical therapy. Needs to have a follow-up BMP. Reassess LV function with echo. Further recommendations forthcoming. Orders: - Basic metabolic panel; Future - Transthoracic Echo Complete W Doppler/CF; Future - 48 HR Holter Monitor; Future - NM MPI SPECT (Rest and/or Stress) Multiple Studies; Future Christopher Novak M.D., [facility] D OF EDUCATION SECRETARY documented in this encounter Miscellaneous Notes * Assessment & Plan Note - Christopher Novak MD - 06/15/2020 2:29 PM BOARD OF EDUCATION SECRETARY Associated Problem(s): Atrial fibrillation (CMS/HCC) (HCC) Rates rapid today however, states not rapid at home. Suspect need higher dose of beta-edmund,however, will assess further with Holter. Further recommendations forthcoming. Continue anticoagulation. D OF EDUCATION SECRETARY * Assessment & Plan Note - Christopher Novak MD - 06/15/2020 2:28 PM BOARD OF EDUCATION SECRETARY Associated Problem(s): Chronic systolic heart failure (CMS/HCC) (HCC) Previously mild last assessed in July last year, likely tachycardia mediated but significant risk factors for CAD in no recent ischemic evaluation. I would favor pharmacologic stress SPECT. Seems zaire tolerating current guideline medical therapy. Needs to have a follow-up BMP. Reassess LV function with echo. Further recommendations forthcoming. D OF EDUCATION SECRETARY documented in this encounter Plan of Treatment Not on file documented as of this encounter Procedures Procedure Name Priority Date/Time Associated Diagnosis Comments POCT LIPID PANEL Routine 06/15/2020 1:57 PM BOARD OF EDUCATION SECRETARY Lipid screening ECG 12-LEAD Routine 06/15/2020 Atrial fibrillation, unspecified type (CMS/HCC) documented in this encounter Results * 48 HR Holter Monitor (08/30/2020 2:20 PM CDT) Anatomical Region Laterality Modality Electrocardiogra phy 08/30/2020 1:56 PM CDT Narrative 09/06/2020 10:37 AM CDT [facility] [place] [place] [address] HOLTER MONITOR Patient Name: JANIA GUAJARDO A : 1950 (70y 3m) Study Date: 08/30/2020 1:56:45 PM Gender: M Tech: dobson,brian Ref.Provider: CHRISTOPHER NOVAK Height(Cm): BSA: Weight(Kg): Order Provider: CHRISTOPHER NOVAK Procedures: Holter Monitor Repor. Indications: Atrial Fibrillation. Measurements: Holter_Data Measurement ?Value ? Units ? Min Rate: ?56 ?BPM ? Min Rate Timestamp: ?02:13:28 ? Max Rate: ?169 ? BPM ? Max Rate Timestamp: ?13:08:23 ? Mean Rate: ? 96 ?BPM ? AFib (% of study): ? 99 ?percent ? AFib Peak Rate: ?168.0 ? BPM ? Singlets (PACs): ? 0 ? events ? Couplets (PACs): ? 0 ? events ? Runs (SVT): ?0 ? events ? Total (SVE): ? 0 ? events ? Singlets (PVCs): ? 609 ? events ? Couplets (PVCs): ? 0 ? events ? Runs (VT): ? 0 ? events ? Total (VE): ?609 ? events ? Longest RR: ?1.86 ?sec ? Longest RR Timestamp: ?05:04:47 ? RRs > 2sec: ?0 ? events ? SVT Fastest Run: ? 0 ? BPM ? SVT Longest Run: ? 0 ? beats ? VT Fastest Run: ?0 ? BPM ? VT Longest Run: ?0 ? beats ? Findings: Protocol: Recording Duration (Ordered): 48 hr, 0 min. Recording Duration (Actual): 46 hr, 40 min. Recorder: H3+. Total QRS: [id number]. Date Recorded: 2020-08-30 13:56:45. Date Processed: 2020-08-30 00:00:00. Tree And Shrub Technician: brian dobson. Application Tech: Jaky MAJOR Conclusions: 1. Predominant rhythm is atrial fibrillation. 2. Suboptimal ventricular rate control. 3. No prolonged pauses. Summary: Rhythm Predominant rhythm is atrial fibrillation. Suboptimal ventricular rate control. Electronically Signed By: Christopher Novak MD, [facility] 2020-09-06 10:37:24 CDT Procedure Note Christopher Noavk MD - 09/06/2020 [facility] [address] [place] [address] HOLTER MONITOR Patient Name: JANIA GUAJARDO APatient ID: [id number] : 1950 (70y 3m)Study Date: 08/30/2020 1:56:45 PM Gender: MAccession #: [id number] Tech: Tamara dobson.Provider: CHRISTOPHER NOVAK Height(Cm): BSA: Weight(Kg): Order Provider: CHRISTOPHER NOVAK Procedures: Holter Monitor Repor. Indications: Atrial Fibrillation. Measurements: Holter_Data Measurement Value Units Min Rate: 56 BPM Min Rate Timestamp: 02:13:28 Max Rate: 169 BPM Max Rate Timestamp: 13:08:23 Mean Rate: 96 BPM AFib (% of study): 99 percent AFib Peak Rate: 168.0 BPM Singlets (PACs): 0 events Couplets (PACs): 0 events Runs (SVT): 0 events Total (SVE): 0 events Singlets (PVCs): 609 events Couplets (PVCs): 0 events Runs (VT): 0 events Total (VE): 609 events Longest RR: 1.86 sec Longest RR Timestamp: 05:04:47 RRs > 2sec: 0 events SVT Fastest Run: 0 BPM SVT Longest Run: 0 beats VT Fastest Run: 0 BPM VT Longest Run: 0 beats Findings: Protocol: Recording Duration (Ordered): 48 hr, 0 min. Recording Duration (Actual): 46 hr, 40 min. Recorder: H3+. Total QRS: [id number]. Date Recorded: 2020-08-30 13:56:45. Date Processed: 2020-08-30 00:00:00. Tree And Shrub Technician: brian dobson. Application Tech: Jaky MAJOR Conclusions: 1. Predominant rhythm is atrial fibrillation. 2. Suboptimal ventricular rate control. 3. No prolonged pauses. Summary: Rhythm Predominant rhythm is atrial fibrillation. Suboptimal ventricular rate control. Electronically Signed By: Christopher Novak MD, [facility] 2020-09-06 10:37:24 CDT Christopher Novak MD [facility] Final Result * NM MPI SPECT (Rest and/or Stress) Multiple Studies (08/30/2020 2:10 PM CDT) Anatomical Region Laterality Modality Body N/A Nuclear Medicine 08/30/2020 10:4 8 AM CDT Narrative 08/30/2020 3:31 PM CDT [facility] [address] [place] [address] MPI Imaging Report Patient Name: JANIA GUAJARDO A : 1950 Study Date: 08/30/2020 10:48:43 AM Gender: M Tech: Little Hart RN, HEAVENLY Location: Ref.Provider: CHRISTOPHER NOVAK Height(Cm): BSA: Weight(Kg): Heart Rate: 128 Order Provider: CHRISTOPHER NOVAK Procedures: Pharmacologic SPECT Report.: Myocardial perfusion imaging [...] pharmacologic vasodilator stress. Electronically Signed By: Christopher Novak MD, [facility] 2020-08-30 15:31:45 CDT Procedure Note Christopher Novak MD - 08/30/2020 [facility] [address] [place] [address] MPI Imaging Report Patient Name: JANIA GUAJARDO APatient ID: [id number] : [id number] Date: 08/30/2020 10:48:43 AM Gender: MAccession #: [id number] Tech: Little Hart RN, ANP-CLocation: SP Ref.Provider: Johnie NOVAKight(Cm): BSA: Weight(Kg): Heart Rate: 128Order Provider: CHRISTOPHER NOVAK Procedures: Pharmacologic SPECT Report.: Myocardial perfusion imaging [...] pharmacologic vasodilator stress. Electronically Signed By: Christopher Novak MD, [facility] 2020-08-30 15:31:45 CDT Christopher Novak MD [facility] PROCEDURES Final R esult * TRANSTHORACIC ECHO (TTE) COMPLETE W DOPPLER/CF WO CONTRAST (08/30/2020 12:09 PM CDT) Anatomical Region Laterality Modality Ultrasound 08/30/2020 10:5 2 AM CDT Narrative 08/30/2020 12:21 PM CDT [facility] [place] [address] ECHOCARDIOGRAM Patient Name: JANIA GUAJARDO : 1950 Study Date: 08/30/2020 10:52:11 AM Gender: M Tech: [facility] [place].Provider: CHRISTOPHER NOVAK Height(Cm): 180 BSA: 2.09 [...] normal. Electronically Signed By: Christopher Novak MD, [facility] 2020-08-30 12:21:56 CDT CC: CC: Procedure Note Christopher Novak MD - 08/30/2020 [facility] [address] [place] [id number] ECHOCARDIOGRAM Patient Name: JANIA GUAJARDOPatient ID: [id number] : [id number] Date: 08/30/2020 10:52:11 AM Gender: MAccession #: [id number] Tech: MACRef.Provider: CHRISTOPHER NOVAK Height(Cm): 180BSA: 2.09 Weight(Kg): 87.1BP: 134/70 Order [...] 1.0 - 1.2 ] m/s MV Decel [id number] [ 104.0 - 258.0 ] ms MV [...] normal. Electronically Signed By: Christopher Novak MD, [facility] 2020-08-30 12:21:56 CDT CC: CC: us Christopher Novak MD CV ECHO PROCEDURES Final Result * POCT lipid panel (06/15/2020 1:57 PM BOARD OF EDUCATION SECRETARY) Cholesterol, POC 152 mg/dL HDL, POC 47 mg/dL Triglycerides, POC 131 mg/dL LDL Cholesterol POC 80 mg/dL Chol/HDL Ratio, POC 3.3 Non-HDL Cholesterol, POC 106 mg/dL Cholesterol Total, POC 152 mg/dL Capillary blood 06/15/2020 1 :57 PM BOARD OF EDUCATION SECRETARY Christopher Novak MD POINT OF CARE TEST ORDERA BLES Final Result * ECG 12 lead (06/15/2020) Christopher Novak MD ECG ORDERABLES Edited Re sult - Final documented in this encounter Visit Diagnoses Diagnosis Atrial fibrillation, unspecified type (HCC)- Primary Lipid screening Screening for lipoid disorders Anticoagulation management encounter Encounter for therapeutic drug monitoring Chronic systolic heart failure (CMS/HCC) (HCC) Chronic systolic heart failure Atrial fibrillation, unspecified type (HCC) Chronic systolic heart failure (CMS/HCC) (HCC) Chronic systolic heart failure Atrial fibrillation, unspecified type (HCC) Chronic systolic heart failure (CMS/HCC) (HCC) Chronic systolic heart failure documented in this encounter Discontinued Medications Medication Sig Discontinue Reason Start Date End Da te ondansetron ODT (ZOFRAN-ODT) 4 mg disintegrating tablet Take 1 tablet (4 mg total) by mouth every 4 (four) hours as needed for nausea or vomiting Therapy completed 12/23/2019 06/15/2020 polyethylene glycol (MIRALAX) 17 gram packetIndications:constip ation Take 17 g by mouth daily Therapy completed 06/15/2020 documented as of this encounter Historical Medications * This list may reflect changes made after this encounter. multivit,tx with iron,minerals (THERA-M ORAL) Take 1 tablet by mouth every morning 08/03/2022 magnesium oxide (MAG-OX) 400 mg (241.3 mg elemental magnesium) tabletIndications :hypomagnesemia Take 400 mg by mouth daily 07/11/2020 loperamide (IMODIUM) 2 mg capsuleIndication s:diarrhea Take 2 mg by mouth every morning 07/16/2020 added in this encounter Additional Health Concerns Infection Onset Date Last Indicated Resolved Time MDR gram neg/ESBL Comment:06/16/2021 IP Review - Pt with scrotal abscess, but is not actively draining (last documented draining on 06/14). Pt remains intubated so requires trach aspirate for isolation discontinuation. Provider notified. Amanda Walker RN 12/19/2019 12/19/2019 documented as of this encounter Care Teams Hazardous Substances Scientist Relationship Specialty Start Date End Date Jean-Claude Crawford MD [address] [place] [address] PCP - General Family Medicine 04/12/20 06/12/22 Jean-Claude Crawford MD [address] [place] [address] Family Medicine 04/12/20 documented as of this encounter
--- OUTSIDE RECORDS SUMMARY | 2024-04-08 10:38 | XMS_ITS | Encounter Summary ---
Author Organization [facility] Healthcare Address [address] [place] [address] Care Team Providers Care Labor Arbitrator Name Role Phone Jean-Claude Crawford MD Primary Care Provider Jean-Claude Crawford MD Unavailable [phone] Encounter Details Date Type Department Care Team (Late st Contact Info) Description 07/13/2020 8:26 AM CDT Anesthesia Event [facility] Operating Room [address] [place] [id number] Jimmie Cordero MD PhD [address] [place] [address] Salome Ratliff CRNA [address] [place] [address] Anesthesia Record Procedure Summary Procedure Name Responsible Anesthesiologist Anesthesia Start Time Anesthesia Stop Time CHOLECYSTECTOMY (Abdomen) Jimmie Cordero MD PhD 07/13/20 0826 07/13/20 1038 Events Date Time Event Comment 07/13/2020 0616 In Preop 0804 0826 An Start 0828 In Room 0829 An Start Data 0838 An Induction The patient was reevaluated immediately before moderate or deep sedation use and before anesthesia induction. 0845 An Intubation 0848 Anesthesia Ready 0903 Proc Start 0903 Incision Start 1002 Local injected by surgeon 1011 Proc Fin 1018 An Extubation 1018 an stop data 1025 Out of Room 1038 Handoff to RN I completed my handoff [...] disposition at the time of handoff: PACU 1038 An Stop Meds Name Total midazolam PF 2 mg lidocaine (cardiac) syringe 2 % 80 mg propofol 150 mg fentaNYL 250 mcg HYDROmorphone 2 mg/mL 0.4 mg succinylcholine 100 mg rocuronium 30 mg phenylephrine 100 mcg/mL 300 mcg ondansetron PF (ZOFRAN) 2 mg/mL injectio n 4 mg glycopyrrolate 0.6 mg neostigmine injection 1 mg/mL 3 mg phenylephrine infusion (100 mcg/mL) 14.1 mcg dexamethasone 4 mg/mL 8 mg ceFAZolin (ANCEF) 2,000 mg/20 mL in ster ile water (premix) 2,000 mg 2,000 mg heparin 5,000 unit/mL injection 5,000 Un its 5,000 Units dexmedeTOMIDine vial 4 mcg/mL 16 mcg Lactated Ringer's (LR) infusion 1,300 mL * Agents Name O2% N2O O2 Air Sevoflurane Inspired Sevoflurane * Blood No blood administrations on file. Lines, Drains, and Airways Type Details Placement Removal RETIRED Pressure Ulcer/Pressure Injury 12/19/19; 914; Yes; Yes; Right; Buttocks; stg 2 blanca size, pink, single thickness, allevyn; 06/12/21; 1233; Not present on admission 12/19/19 0915 by Tanja Garcia, RN 06/12/21 1233 by Suyapa Shi, GAURAV RETIRED Pressure Ulcer/Pressure Injury 12/19/19; 0915; Yes; Yes; Left; Buttocks; sm open area, stg 2, pink, allevyn; 06/12/21; 1233; Not present on admission 12/19/19 0915 by Tanja Garcia, RN 06/12/21 1233 by Suyapa Shi, GAURAV RETIRED Wound 12/19/19; 0915; Yes; Abscess; Lower, Right; Abdomen; swollen, red, draining serosanMD manuel packed and dressed this AM; 06/12/21; 1234; Not present on admission 12/19/19 0915 by Tanja Garcia RN 06/12/21 1234 by Suyapa Shi RN Peripheral IV Placement Date: 07/13/20; Placement Time: 0642; Catheter Size: 18 G; Orientation: Left; Location: Forearm; Site Prep: Chlorhexidine; Technique: Anatomical landmarks; Insertion Attempts: 1; Patient Tolerance: Tolerated well; Removal Date: 07/14/20; Removal Time: 1130 07/13/20 0642 by Corine Mae RN 07/14/20 1130 by Janna Guido RN Urethral Catheter Placement Date: 07/13/20; Placement Time: 0845; Inserted by: GAURAV Stover; Type: Non-latex, Straight-tip; Size: 16 Fr.; Balloon Size: 10 mL; Urine Returned: Yes; Removal Date: 07/14/20; Removal Time: 1058 07/13/20 0845 by Elena Stover RN 07/14/20 1058 by Janna Guido RN ETT Placement Date: 07/13/20; Placement Time: 0944 (created via procedure documentation); Mask Ventilation: 2; Type: ETT - single; Single Lumen Tube Size: 8 mm; Cuffed: Yes; Location: Oral; Grade View: Grade III; Insertion Attempts: 2; Placement Verification: Auscultation, Capnometry; Airway Comment: Attempted DL, unable to identify structures. Visualized what appeared to be a white mass of some sort in/near valecula which obstructed view. Switched to airtraq. Observed same white mass in valecula region. Difficulty viewing glottic opening, but once identified, grade 1 view. Unable to guide tube through glottic opening. Bougie used to assist intubation. Easy to mask ventilate with oral airway. 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 Gender Identity Not on file Sexual Orientation Not on file documented as of this encounter OR Notes * Anesthesia Postprocedure Evaluation - Silvina Ulloa MD - 07/13/2020 12:36 PM CDT Patient: Lloyd Redman Procedure Summary Date: 07/13/20 Room / Location: [facility] OR POD 5 ROOM 226 / [facility] OR POD [facility] Anesthesia Start: 825 Anesthesia Stop: 1037 Procedure: CHOLECYSTECTOMY (N/A Abdomen) Diagnosis: Acute cholecystitis (Acute cholecystitis [K81.0]) Surgeons: Eugene Gomez MD Responsible Provider: Jimmie Cordero MD PhD Anesthesia Type: general ASA Status: 4 Anesthesia Type: general Last vitals BP (!) 173/109 Pulse 96 Temp 36.1 ??C (97 ??F) (Temporal) Resp 16 SpO2 100% Anesthesia Post Evaluation Patient location during evaluation: PACU Patient participation: complete - patient participated Level of consciousness: fully awake Pain score: 5 Pain management: satisfactory to patient Airway patency: adequate Evidence of recall: no Anesthetic complications: no Cardiovascular status: hemodynamically stable and acceptable Respiratory status: acceptable, nasal cannula and non-labored ventilation Hydration status: acceptable Pt is: normothermic Nausea/Vomiting status: none Comments: Lloyd has a history of afib and is currently in afib with a rate in the 90s. He is also hypertensive at baseline with a SBP of 190 preop, with a current SBP in the 170s. He denies any headache or blurry vision. He will return to the floor. Cosigned by Queta Rubalcava MD PhD at 07/13/2020 12:39 PM CDT * Anesthesia Procedure Notes - Salome Ratliff CRNA - 07/13/2020 9:38 AM CDT Associated Order(s): Airway Airway Patient location: OR Urgency: elective Indications for airway management: anesthesia and airway protection Difficult airway: no Staff: Supervising provider: Jimmie Cordero MD PhD Placed by: CARTON INSPECTOR: Salome Ratliff CRNA Emergent airway documentation: Risks and benefits discussed: yes Consent obtained: yes Consent given by: patient Airway prep: Preoxygenated: yes Patient position: sniffing MILS maintained throughout: yes Mask difficulty assessment: 2 - vent by mask + OA or adjuvant Spontaneous ventilation during airway: absent Sedation level during airway: GA Final airway details: Final airway type: endotracheal airway Tube type: ETT ETT size: 8.0 mm Cuffed: yes Technique used for successful ETT placement: optical laryngoscopy Devices/Methods used in placement: bougie Insertion site: oral Cormack-Lehane (direct): grade III - view of epiglottis only Cuff inflated with: air ETT to lips: 22 cm Placement verified by: auscultation and CO2 detection Airway secured with: silk tape Number of attempts: 2 Ventilation between attempts: BVM Unsuccessful approach(es) for ETT: direct laryngoscopy Additional comments: Attempted DL, unable to identify structures. Visualized what appeared to be a white mass of some sort in/near [place] which obstructed view. Switched to airtraq. Observed same white mass in valecularegion. Difficulty viewing glottic opening, but once identified, grade 1 view. Unable to guide tubethrough glottic opening. Bougie used to assist intubation. Easy to mask ventilate with oral airway. * Anesthesia Preprocedure Evaluation - Jimmie Cordero MD PhD - 07/11/2020 10:32 AM CDT Images from the original note were not included. [facility] Preoperative Assessment and Planning Preoperative Evaluation Record Evaluation type/location: [facility] Planned procedure site: [facility] (Pods 2/3/5/[facility]) Date: 07/11/20 Anesthesia Evaluation Lloyd Redman is a 70 y.o. male Procedure(s): CHOLECYSTECTOMY Pre-Op Diagnosis Codes: * Acute cholecystitis [K81.0] HISTORY HPI 70 year old male presents for evaluation prior to a cholecystectomy for acute cholecystitis after being hospitalized from 12/18/2019 to 12/28/2019 after he was transferred from an outside hospital forperforated cholecystitis c/b recurrent gallbladder abscesses requiring percutaneous drainage. During evaluation at the hospital, he was found to be in AFib with RVR and later developed alcohol withdrawal. Determined to be a poor candidate for surgery, he was was treated with antibiotics and improved. Of note, patient hospitalized again in 02/2020 with BLE edema and SOB. Negative for a PE but positive for a RLE DVT. PMH includes TIA in 2005, HTN, persistent a-fib over the past 2019, CHF, and is legally blind and deaf. Past Medical History Information obtained from: patient and chart. Neurological + TIA Number of TIA episodes: 1. Date of last TIA: 2005. Pertinent negatives: seizures; neuromuscular disease; CVA/stroke; CEA; ICA stenosis; dementia/mild cognitive impairment and carotid artery stent Cardiovascular + Hypertension Typical systolic BP - 150 Typical diastolic BP - 90 + Hyperlipidemia + CHF (Per Cards OVN from 06/15/2020- An echocardiogram done (07/2019) at that time showed a mild impairment of LV function, ejection fraction 45-50%. No significant valvular disease. ) CHF Etiology:unknown. Diastolic function: unknown/unspecified LVEF: 40-50%. + Atrial fibrillation/flutter (S/p Eliquis and Metoprolol) - Current Rhythm: atrial fibrillation. Rhythm type: persistent (one or more episodes > 7 days). + DVT/PE (S/p ongoing Eliquis) Number of DVT/PE episodes: 1. Last VTE date: 02/2020. Pertinent negatives: CAD ; VT ; CABG ; valvular heart disease; valve replacement; arrhythmia; pacemaker/ICD; PVD; drug-eluting stent(s); bare metal stent(s) and coronary angioplasty Comments: Followed by Dr. Novak- [facility] Cards; last OVN from 06/15/2020 Chronic systolic heart failure (CMS/HCC) Assessment & Plan: Previously mild last assessed in July last year, likely tachycardia mediated but significant risk factors for CAD in no recent ischemic evaluation. I would favor pharmacologic stress SPECT. Seems zaire tolerating current guideline medical therapy. Needs to have a follow-up BMP. Reassess LV function with echo. Further recommendations forthcoming. Respiratory Pertinent negatives: COPD; asthma; sleep apnea (WENCESLAO); pulmonary hypertension; no O2 use outside thehospital and non-smoker Comments: Small pleural and pericardial effusions noted on CT on 06/13 Hepatic / Heme Pertinent negatives: liver disease; history of anemia; history of thrombocytopenia and history of Nancy positive Comments: Apparent hx of ETOH abuse per surgeon's note Gastrointestinal + GERD - on daily therapy. Asymptomatic. Pertinent negatives: hiatal hernia Comments: Acute cholecystitis, intra-abdominal abscess, and extensive colonic diverticulosis currently Renal / Pertinent negatives: renal disease; dialysis and nephrolithiasis Comments: BPH Musculoskeletal/Pain Pertinent negatives: chronic pain; chronic opioid use and previous treatment for opioid use disorder Endocrine / Other + Infectious disease (Ongoing issuces with intra-abdominal abscesses and sepsis in 2020) - sepsis. + Eye disorder (Legally blind) Pertinent negatives: diabetes mellitus; thyroid disease; obesity (BMI >30); cancer history; rheumatological disease and transplanted organ Functional Capacity Functional capacity: <4 METs Functional capacity limited by a non-cardiovascular, non-pulmonary condition. Comments: Patient limited with mobility 2/2 blindness. Able to ambulate around the house and up the7 stairs in the house without significant SOB/CP. Review of Systems + hard of hearing (Bilateral [place] s/p hearing aids) + vision loss (Corrective lenses) + chipped/loose teeth (Missing teeth and poor dentition) + abdominal pain (2/2 cholecystitis and current abscess) Pertinent negatives: productive cough; wheezing; SOB; recent cold/flu; fever; chest pain; palpitations; orthopnea; pedal edema; PND; Sickle Cell disease/trait; previous transfusion; transfusion reaction; melena/hematochezia; easy bruising; bleeding problems; syncope; dizziness; muscle weakness; chronic pain; numbness/tingling; heartburn; nausea; dysphagia; diarrhea; dentures/partials; diaphoresisand no unexpected weight change PAT Summary and Plans Cardiac risk classification of planned procedure: intermediate cardiac risk. Preoperative assessment status: lab tests ordered and discussion w/ other MDs required. Initial preoperative evaluation discussed with: Clarisa Pace MD Additional comments: Lloyd Redman is a 70 y.o. male who is being evaluated prior to undergoing an intermediate cardiac risk surgery. Revised Cardiac Risk Index factors are (history of CHF and historyof cerebrovascular disease) for a total RCRI of 2 out of 6. Functional capacity is <4 METs (specifically: Patient limited with mobility 2/2 blindness. Able to ambulate around the house and up the 7 stairs in the house without significant SOB/CP.). Obstructive sleep apnea (WENCESLAO) screening status is STOP-Bang=4 with bicarbonate > 27 suggesting HIGH RISK for WENCESLAO. The patient is at elevated risk for obstructive sleep apnea (WENCESLAO) per STOP-BANG screening questionnaire results. Patient informed of the possibility that they have undiagnosed WENCESLAO, which may increasetheir risk for perioperative respiratory events. Patient also informed of the possible long-term health problems associated with WENCESLAO. Because we do not feel that preoperative WENCESLAO testing is likely tooutweigh the downsides of delaying surgery, we have recommended that the patient talk to their primary doctor or other clinician after surgery about getting tested for WENCESLAO. WENCESLAO orders placed. Blood bank needs for day of procedure: No type and screen needed No pre-op labs indicated. Recent CMP reviewed without concern. This patient has a history of atrial fibrillation with a [id number] score of 5 at MODERATE risk for perioperative thromboembolic events due to [id number] score and prior history of thromboembolicevent as per the 2017 ACC Expert Consensus Pathway. The patient is on oral anticoagulation therapy with apixaban (ELIQUIS) and is scheduled for a procedure with a planned/possible nerve block and/or is at low or intermediate risk for perioperative thrombosis. Estimated creatinine clearance is 92 ml/min. We recommend holding all doses of this anticoagulant for 3 days (72 hours) prior to the procedure. Therapeutic anticoagulation should be resumed post-operatively when the bleeding risk is acceptable. Alternative anticoagulation therapies can be used in the interim if acceptable. Per patient, Eliquis has been on hold since 07/08/20. Please call the CPAP attending ([phone]) to revisit risk assessment, with any questions, or to discuss alternative management plans.?? Of note, patient was found to be in a-fib with RVR at his Cards appointment on 06/15/20 and has a recent hx of a DVT in the RLE s/p ongoing Eliquis in 02/2020. Repeat Dopplers have not been performed.Dr. Novak's OVN from 06/15 mentioned ordering a TTE, stress test, and Holter to assess the patient's CHF, a-fib, and possible CAD. LVM with Dr. Novak's office inquiring if he would recommend having these cardiology diagnostics performed PRIOR to surgery. Patient's COVID19 status is: Unexposed. The patient currently has no concerning symptoms of COVID19. Plan for pre-procedure COVID19 testing: Surgery date within 4 days. Pre-procedure COVID19 testing performed at [facility]. Result pending- to be reviewed by surgeon's office. - Awaiting Dr. Novak's response. Preoperative evaluation performed by Naman Walker NP on 07/11/20 at 11:46 AM. . Follow up note Per Dr. Novak, surgery does not need to be delayed for cardiology diagnostics. Discussed with CPAPAttending and we are in agreement. Follow-up completed by: Naman Walker NP on 07/11/20 at 2:50 PM Discussed with: Clarisa Pace MD Follow up note Covid not detected. CPAP process complete. Follow-up completed by: Vijaya Woodson NP on 07/12/20 at 8:28 AM Patient Active Problem List Diagnosis ??? Hypercholesterolemia ??? Hypertension ??? Heartburn ??? Cholecystitis ??? Intra-abdominal abscess (CMS/HCC) ??? DVT (deep venous thrombosis) (CMS/HCC) ??? Acute cholecystitis ??? Atrial fibrillation (CMS/HCC) ??? Chronic systolic heart failure (CMS/HCC) Past Medical History: Diagnosis Date ??? Atrial [...] ??? FLUID DRAIN SOFT TISSUE N/A 12/19/2019 Allergies Allergen Reactions ??? Penicillins Hives Med List Status: Nurse Complete Set By: Nikolai Daniel RN at 07/11/2020 10:26 AM Taking? Last Dose Start Date End Date Provider acetaminophen (TYLENOL) 500 mg tablet 07/10/2020 -- -- Manish Cabezas MD apixaban (ELIQUIS) 5 mg tablet Past Week 02/22/20 07/11/20 Abiodun Rodgers MD Take 1 tablet (5 mg total) by mouth every 12 (twelve) hours Patient taking differently: Take 5 mg by mouth every 12 (twelve) hours Last dose 07/08/20 cholecalciferol (VITAMIN D-3) 5,000 unit tablet 07/11/2020 -- -- Manish Cabezas MD folic acid (FOLVITE) 1 mg tablet 07/11/2020 02/22/20 07/11/20 Abiodun Rodgers MD Take 1 tablet (1 mg total) by mouth daily Patient taking differently: Take 1 mg by mouth every morning furosemide (LASIX) 40 mg tablet 07/10/2020 02/22/20 02/21/21 Abiodun Rodgers MD Take 1 tablet (40 mg total) by mouth 2 (two) times a day Patient taking differently: Take 40 mg by mouth every morning ibuprofen (ibuprofen) 200 mg tab/cap 07/10/2020 -- -- Manish Cabezas MD levalbuterol (XOPENEX) 1.25 mg/3 mL nebulizer solution More than a month -- -- Manish Cabezas MD lisinopriL (PRINIVIL,ZESTRIL) 40 mg tablet 07/11/2020 02/23/20 02/22/21 Abiodun Rodgers MD Take 1 tablet (40 mg total) by mouth daily Patient taking differently: Take 40 mg by mouth every morning loperamide (IMODIUM) 2 mg capsule 07/11/2020 -- -- Manish Cabezas MD magnesium oxide (MAG-OX) 400 mg (241.3 mg elemental magnesium) tablet 07/11/2020 -- -- Manish Cabezas MD metoprolol tartrate (LOPRESSOR) 50 mg immediate release tablet 07/11/2020 02/22/20 07/11/20 Abiodun Rodgers MD Take 1 tablet (50 mg total) by mouth 2 (two) times a day Patient taking differently: Take 50 mg by mouth 2 (two) times a day multivit,tx with iron,minerals (THERA-M ORAL) 07/11/2020 -- -- Manish Cabezas MD pantoprazole DR (PROTONIX) 40 mg EC tablet 07/11/2020 02/23/20 02/22/21 Abiodun Rodgers MD Take 1 tablet (40 mg total) by mouth daily Patient taking differently: Take 40 mg by mouth every morning potassium chloride ER (KLOR-CON) 20 mEq CR tablet 07/11/2020 02/23/20 02/22/21 Abiodun Rodgers MD Take 2 tablets (40 mEq total) by mouth daily Patient taking differently: Take 40 mEq by mouth every morning terazosin (HYTRIN) 10 mg capsule 07/10/2020 02/22/20 07/11/20 Abiodun Rodgers MD Take 1 capsule (10 mg total) by mouth nightly Patient taking differently: Take 10 mg by mouth nightly thiamine (VITAMIN B1) 100 mg tablet 07/11/2020 -- -- Provider, MD Manish Current Outpatient Medications: ??? acetaminophen (TYLENOL) 500 mg tablet ??? apixaban (ELIQUIS) 5 mg tablet ??? cholecalciferol (VITAMIN D-3) 5,000 unit tablet ??? folic acid (FOLVITE) 1 mg tablet ??? furosemide (LASIX) 40 mg tablet ??? ibuprofen (ibuprofen) 200 mg tab/cap ??? lisinopriL (PRINIVIL,ZESTRIL) 40 mg tablet ??? loperamide (IMODIUM) 2 mg capsule ??? magnesium oxide (MAG-OX) 400 mg (241.3 mg elemental magnesium) tablet ??? metoprolol tartrate (LOPRESSOR) 50 mg immediate release tablet ??? multivit,tx with iron,minerals (THERA-M ORAL) ??? pantoprazole DR (PROTONIX) 40 mg EC tablet ??? potassium chloride ER (KLOR-CON) 20 mEq CR tablet ??? terazosin (HYTRIN) 10 mg capsule ??? thiamine (VITAMIN B1) 100 mg tablet ??? levalbuterol (XOPENEX) 1.25 mg/3 mL nebulizer solution Social History Tobacco Use Smoking Status Current Every Day Smoker ??? Packs/day: 1.00 ??? Types: Cigarettes ??? Start date: 1964 Smokeless Tobacco Never Used Substance and Sexual Activity Alcohol Use Yes Comment: limited Substance and Sexual Activity Drug Use Never Family History Problem Relation Age of Onset ??? Lung cancer Father ??? Anesthesia problems Neg Hx PAT Physical Exam Airway Exam: Mallampati: III Cervical ROM: FROM TM distance: 3.5 Cardiovascular Exam: Rate: regular Rhythm: irregular Pulmonary Exam: LCTA, bilat EENT Exam: trachea midline Dental Exam: Missing and poor dentition Skin Exam: Skin is warm. (RUQ wound 2/2 abscess currently covered with dressing) Abdominal exam: Abdomen is soft. Bowel sounds are present. Current state: Patient's current state is cooperative and interactive. Additional comments: A&Ox4 Vitals: 07/11/20 1035 07/11/20 1036 BP: 153/94 (!) 135/102 Pulse: 91 Resp: 20 SpO2: 99% Relevant diagnostics: ECG(s): 06/15/20 A-fib with rapid mean ventricular response PVCs Septal infarct HR 118 Vascular studies: BLE Dopplers 02/20/2020 Conclusions: 1. There is acute deep vein thrombosis involving vein(s) as noted above in the right lower extremity. 2. There is no evidence of acute deep vein thrombosis on the left. Noninvasive venous studies cannot rule out isolated calf vein obstruction. 3. Soft tissue masses present in the left groin area, possible lymphadenopathy. Other: CT Abdomen Pelvis 06/13/20 IMPRESSION:?? 1. Interval decrease in size of an abscess extending from the gallbladder fossa the anterior abdominal wall. ?? 2. Extensive colonic diverticulosis. Mild thickening of the right hemicolon may be related to chronic diverticulitis. ?? 3. Small pleural and pericardial effusions. CT Chest PE IMPRESSION: 1. No acute pulmonary embolism. ?? 2. Interval increase in small right greater than left bilateral pleural effusions. Stable pericardial effusion and cardiomegaly. ?? 3. Large right thyroid nodule, which may represent multinodular goiter. This may be further evaluated with dedicated thyroid ultrasound nonemergent setting. ?? 4. Interval decrease in size of partially visualized rim-enhancing fluid collection arising from the gallbladder fossa and extending to the ventral abdominal wall. PT: No results found for requested labs [...] labs within last 720 hours. BMP Glucose: 06/22/2020: 168 mg/dL* Calcium: 06/22/2020: 8.9 mg/dL Sodium: 06/22/2020: 140 mmol/L Potassium: 06/22/2020: 3.6 mmol/L CO2: 06/22/2020: 29 mmol/L Chloride: 06/22/2020: 102 mmol/L BUN: 06/22/2020: 7 mg/dL Creatinine: 06/22/2020: 0.81 mg/dL STOP-Bang Total Score: 4 Chelsea index score: 100 Short Blessed Total Score: 4 DOS Physical Exam Medical history, medications, and allergies reviewed. Attestation: With today's edits, I endorse the findings of the anesthesia pre-evaluation assessment dated: 07/11/2020. Airway Exam: Mallampati: II Cervical ROM: FROM TM distance: decreased Jaw ROM: full Cardiovascular Exam: Rate: regular Rhythm: regular Pulmonary Exam: LCTA EENT Exam: trachea midline Dental Exam: Missing Skin Exam: Skin is moist. Turgor is normal. Anterior Fontanelles: Fontanelles are closed. Current state: Patient's current state is cooperative and interactive. Additional comments: Last alcohol intake yesterday. Anesthesia Plan ASA 4 My patient is approved for the Anesthesia Controlled Medication protocol when under care of a CARTON INSPECTOR Planned anesthesia: General Team communication plan: oral ET tube Induction: Induction: intravenous. Postoperative Plan: Postoperative administration opioids intended. No postoperative mechanical ventilation intended. Patient's planned disposition post procedure is Floor. Informed Consent: Discussed plan with CARTON INSPECTOR. Anesthesia plan and risks discussed with patient. Plan and Consent Comments: Explained general anesthesia and warned the risks of GA - PONV, sore throat, lip or teeth injury, allergy, awareness, invasive lines, vasopressor requirement, delayed recovery, CVA, post-op ventilatory support, arrhythmias, heart attack, heart failure, ICU care and . Patient understood my explanation and anesthesia risks, and agreed to proceed. All questions answered. Talked to , we are in agreement that patient doesn't warrant echo heart and I will do an arterial line if required during the procedure. ?? Consent and Attending signature: I and/or my [...] Procedure Name Priority Date/Time Associated Diagnosis Comments NV AN PROCEDURE PLACEHOLDER Routine 07/13/2020 9:38 AM CDT NV AN ELECTIVE ENDOTRACHEAL AIRWAY Routine 07/13/2020 9:38 AM CDT documented in this encounter Results * NV AN ELECTIVE ENDOTRACHEAL AIRWAY, NV AN PROCEDURE PLACEHOLDER (07/13/2020 9:38 AM CDT) Narrative Salome Ratliff CRNA - 07/13/2020 9:38 AM CDT Salome Ratliff CRNA ? 07/13/2020 ??9:44 AM Airway Patient location: OR Urgency: elective Indications for airway management: anesthesia and airway protection Difficult airway: no Staff: Supervising provider: Jimmie Cordero MD PhD Placed by: CARTON INSPECTOR: Salome Ratliff CRNA Emergent airway documentation: Risks and benefits discussed: yes Consent obtained: yes Consent given by: patient Airway prep: Preoxygenated: yes Patient position: sniffing MILS maintained throughout: yes Mask difficulty assessment: 2 - vent by mask + OA or adjuvant Spontaneous ventilation during airway: absent Sedation level during airway: GA Final airway details: Final airway type: endotracheal airway Tube type: ETT ETT size: 8.0 mm Cuffed: yes Technique used for successful ETT placement: optical laryngoscopy Devices/Methods used in placement: bougie Insertion site: oral Cormack-Lehane (direct): grade III - view of epiglottis only Cuff inflated with: air ETT to lips: 22 cm Placement verified by: auscultation and CO2 detection Airway secured with: silk tape Number of attempts: 2 Ventilation between attempts: BVM Unsuccessful approach(es) for ETT: direct laryngoscopy Additional comments: Attempted DL, unable to identify structures. ??Visualized what appeared to be a white mass of some sort in/near valecula which obstructed view. ?? Switched to airtraq. ??Observed same white mass in valecula region. ?? Difficulty viewing glottic opening, but once identified, grade 1 view. ?? Unable to guide tube through glottic opening. ??Bougie used to assist intubation. ??Easy to mask ventilate with oral airway. Jimmie Cordero MD PhD ANESTHESIA ORDER VALERI Final Result documented in this encounter Visit Diagnoses Not on filedocumented in this encounter Administered Medications Inactive Administered Medications - up to 3 most recent administrations Medication Order MAR Action Action Date Dose Rate Site ceFAZolin (ANCEF) 2,000 mg/20 mL in sterile water (premix) 2,000 mg 2,000 mg, intravenous, at 400 mL/hr, Administer over 3 Minutes, Once, On Sat07/13/20 at 0700, For 1 dose, Pre-Op, Administer within 60 minutes of incision., Indications: Prophylaxis, SurgicalIndications:Prophylaxis , Surgical Given 07/13/2020 8:48 AM CDT 2,000 mg dexAMETHasone (DECADRON) 4 mg/mL injection intravenous, Administer over 2 Minutes, As needed, Starting on Sat07/13/20 at 0929, Anesthesia Intra-op Given 07/13/2020 9:29 AM CDT 8 mg dexmedeTOMIDine (PRECEDEX) 80 mcg/20 mL (4 mcg/mL) in sodium chloride 0.9% (premix) intravenous, As needed, Starting on Sat07/13/20 at 1022, Anesthesia Intra-op Given 07/13/2020 10:24 AM CDT 8 mcg Given 07/13/2020 10:22 AM CDT 8 mcg fentaNYL (SUBLIMAZE) preservative free injection intravenous, As needed, Starting on Sat07/13/20 at 0838, Anesthesia Intra-op Given 07/13/2020 9:23 AM CDT 50 mcg Given 07/13/2020 9:21 AM CDT 50 mcg Given 07/13/2020 9:14 AM CDT 50 mcg glycopyrrolate (ROBINUL) injection intravenous, Administer over 1 Minutes, As needed, Starting on Sat07/13/20 at 0959, Anesthesia Intra-op Given 07/13/2020 10:05 AM CDT 0.4 mg Given 07/13/2020 9:59 AM CDT 0.2 mg heparin 5,000 unit/mL injection 5,000 Units 5,000 Units, subcutaneous, Once, On Sat07/13/20 at 0700, For 1 dose, Pre-Op, Indications: Deep Vein Thrombosis PreventionIndications:Deep Vein Thrombosis Prevention Given 07/13/2020 8:50 AM CDT 5,000 Units HYDROmorphone (DILAUDID) injection intravenous, Administer over 2 Minutes, As needed, Starting on Sat07/13/20 at 0938, Anesthesia Intra-op Given 07/13/2020 9:38 AM CDT 0.4 mg Lactated Ringer's (LR) infusion 30 mL/hr, intravenous, Continuous, Starting on Sat07/13/20 at 0700, Pre-Op New Bag 07/13/2020 9:26 AM CDT New Bag 07/13/2020 6:43 AM CDT 30 mL/hr 30 mL/hr lidocaine (cardiac) (XYLOCAINE) preservative free injection intravenous, As needed, Starting on Sat07/13/20 at 0840, Anesthesia Intra-op, Indications: Ventricular ArrhythmiasIndications:Ventricular Arrhythmias Given 07/13/2020 8:40 AM CDT 80 mg midazolam (VERSED) 1 mg/mL preservative free injection intravenous, Administer over 2 Minutes, As needed, Starting on Sat07/13/20 at 0826, Anesthesia Intra-op Given 07/13/2020 8:26 AM CDT 2 mg neostigmine (PROSTIGMIN) injection intravenous, Administer over 3 Minutes, As needed, Starting on Sat07/13/20 at 0959, Anesthesia Intra-op Given 07/13/2020 10:05 AM CDT 2 mg Given 07/13/2020 9:59 AM CDT 1 mg ondansetron (ZOFRAN) injection intravenous, Administer over 2 Minutes, As needed, Starting on Sat07/13/20 at 0945, Anesthesia Intra-op Given 07/13/2020 9:45 AM CDT 4 mg phenylephrine (CON-SYNEPHRINE) 1 mg/10 mL (100 mcg/mL) in sodium chloride 0.9% (premix) intravenous, As needed, Starting on Sat07/13/20 at 0852, Anesthesia Intra-op Given 07/13/2020 8:59 AM CDT 100 mcg Given 07/13/2020 8:55 AM CDT 100 mcg Given 07/13/2020 8:52 AM CDT 100 mcg phenylephrine (CON-SYNEPHRINE) 5 mg/50 mL (100 mcg/mL) in sodium chloride 0.9% (premix) intravenous, Continuous PRN, Starting on Sat07/13/20 at 0908, Anesthesia Intra-op Restarted 07/13/2020 9:30 AM CDT 0.3 mcg/min 0.18 mL/hr New Bag 07/13/2020 9:08 AM CDT 0.4 mcg/min 0.24 mL/hr propofoL (DIPRIVAN) IV intravenous, As needed, Starting on Sat07/13/20 at 0841, Anesthesia Intra-op Given 07/13/2020 8:43 AM CDT 50 mg Given 07/13/2020 8:41 AM CDT 100 mg rocuronium (ZEMURON) injection intravenous, As needed, Starting on Sat07/13/20 at 0854, Anesthesia Intra-op Given 07/13/2020 8:54 AM CDT 30 mg succinylcholine (ANECTINE) injection intravenous, As needed, Starting on Sat07/13/20 at 0842, Anesthesia Intra-op Given 07/13/2020 8:42 AM CDT 100 mg documented in this encounter Additional Health Concerns Infection Onset Date Last Indicated Resolved Time MDR gram neg/ESBL Comment:06/16/2021 IP Review - Pt with scrotal abscess, but is not actively draining (last documented draining on 06/14). Pt remains intubated so requires trach aspirate for isolation discontinuation. Provider notified. Amanda Walker RN 12/19/2019 12/19/2019 documented as of this encounter Care Teams Labor Arbitrator Relationship Specialty Start Date End Date Jean-Claude Crawford MD [address] [place] [address] PCP - General Family Medicine 04/12/20 06/12/22 Jean-Claude Crawford MD [address] [place] [address] Family Medicine 04/12/20 documented as of this encounter
--- OUTSIDE RECORDS SUMMARY | 2024-04-08 10:38 | XMS_ITS | Encounter Summary ---
Author Organization [facility] Healthcare Address [address] [place] [address] Care Team Providers Care Housekeeper Child Care Name Role Phone Jean-Claude Crawford MD Primary Care Provider Jean-Claude Crawford MD Unavailable [phone] Encounter Details Date Type Department Care Team (Latest Contact Info) Description 06/11/2021 7:52 PM RETAIL FIELD SUPERVISOR Hospital Encounter [facility] [address] [place] [address] Discharge Disposition: Discharge to home or self [...] on file Legal Sex Male 9:10 PM RETAIL FIELD SUPERVISOR Gender Identity Not on file Sexual [...] MR OUTSIDE CONSULT Routine 06/11/2021 7:52 PM RETAIL FIELD SUPERVISOR Diagnosis unknown documented in this encounter Results * Neuro CT MR Outside Consult (06/11/2021 7:52 PM RETAIL FIELD SUPERVISOR) Anatomical Region Laterality Modality N/A Computed Tomogra phy 06/11/2021 9:37 PM RETAIL FIELD SUPERVISOR Impressions 06/12/2021 7:57 AM RETAIL FIELD SUPERVISOR This study was initially nominated as a consult on outside images via MARCOS. However, a consult was not performed because a more recent head CT was performed at [facility] on 06/11/2021. ??Accordingly, there will be no separate report of this study generated by a [facility] Radiologist. Dictated by: Shaka Preston M.D. The radiology attending physician has personally reviewed this study, and had reviewed and/or edited this written report and agrees with it. Electronically signed by: Kerwin Doss M.D. Narrative 06/12/2021 7:57 AM RETAIL FIELD SUPERVISOR EXAMINATION: ??CHANGE CONSULT ON OUTSIDE IMAGES TO REFERENCE IMAGES Procedure Note Kerwin Doss MD - 06/12/2021 EXAMINATION: CHANGE CONSULT ON OUTSIDE IMAGES TO REFERENCE IMAGES IMPRESSION: This study was initially nominated as a consult on outside images via MARCOS. However, a consult was not performed because a more recent head CT was performed at [facility] on 06/11/2021. Accordingly, there will be no separate report of this study generated by a [facility] Radiologist. Dictated by: Shaka Preston M.D. The [...] documented as of this encounter Care Teams Housekeeper Child Care Relationship Specialty Start Date End Date Jean-Claude Crawford MD [address] [place] [address] PCP - General Family Medicine 04/12/20 06/12/22 Jean-Claude Crawford MD [address] [place] [address] Family Medicine 04/12/20 documented as of this encounter
--- OUTSIDE RECORDS SUMMARY | 2024-04-08 10:38 | XMS_ITS | Encounter Summary ---
Author Organization [facility] Address [address] [place] [address] Phone Care Team Providers Care Body And Fender Mechanic Name Role Phone Jean-Claude Crawford MD Primary Care Provider Jean-Claude Crawford MD Unavailable [phone] Reason for Visit * Reason Onset Date Comments Scheduling Appointments 05/18/2020 Encounter Details Date Type Department Care Team (Late st Contact Info) Description 05/18/2020 Telephone [facility] Surgery [address] [facility] Advanced [facility] 8th [place] [address] [place] [address] Eugene Gomez MD [address] [facility] [phone] [place] [address] Scheduling Appointments Social History Tobacco Use Types Packs/Day Years Used Date Smoking Tobacco: Every Day Cigarettes Smokeless Tobacco: Never Alcohol Use Standard Drinks/Week Comments Yes 0 (1 standard drink = 0.6 oz pur e alcohol) limited Sex and Gender Information Value Date Recorded Sex Assigned at Not on file Legal Sex Male 9:10 PM INTELLIGENCE APPLICATIONS Gender Identity Not on file Sexual Orientation Not on file documented as of this encounter Miscellaneous Notes * Telephone Encounter - Shauna Cummings RMA - 05/18/2020 9:23 AM CST Rescheduled patient appointments and gave new date/times LLIGENCE APPLICATIONS documented in this encounter Plan of Treatment [...] documented as of this encounter Care Teams Body And Fender Mechanic Relationship Specialty Start Date End Date Jean-Claude Crawford MD [address] [place] [address] PCP - General Family Medicine 04/12/20 06/12/22 Jean-Claude Crawford MD [address] [place] [address] Family Medicine 04/12/20 documented as of this encounter
--- OUTSIDE RECORDS SUMMARY | 2024-04-08 10:38 | XMS_ITS | Encounter Summary ---
Author Organization [facility] Address [address] [place] [address] Phone Care Team Providers Care Hide Handler Name Role Phone Jean-Claude Crawford MD Primary Care Provider Encounter Details Date Type Department Care Team (Late st Contact Info) Description 03/15/2020 Telephone [facility] Surgery [address] [facility] Floor 1 [place] [address] Emerita Stein, GAURAV Social History Tobacco Use Types Packs/Day Years Used Date Smoking Tobacco: Every Day Cigarettes Smokeless Tobacco: Never Alcohol Use Standard Drinks/Week Comments Yes 0 (1 standard drink = 0.6 oz pur e alcohol) limited Sex and Gender Information Value Date Recorded Sex Assigned at Not on file Legal Sex Male 9:10 PM HOROLOGIST Gender Identity Not on file Sexual Orientation Not on file documented as of this encounter Ordered Prescriptions Prescription Sig Dispense Quantity Refills Last Filled Start Date End Date ciprofloxacin (CIPRO) 500 mg tabletIndications: Abdominal/Pelvic Infection Take 1 tablet (500 mg total) by mouth 2 (two) times a day for 10 days 20 tablet 03/15/2020 03/25/2020 documented in this encounter Miscellaneous Notes * Telephone Encounter - Emerita Camarena RN - 03/15/2020 2:42 PM CST Sent over Rx per Dr. Gomez. ----- Message from Eugene Gomez MD sent at 03/15/2020 2:40 PM HOROLOGIST ----- Sure. ----- Message ----- From: Emerita Camarena RN Sent: 03/15/2020 2:20 PM HOROLOGIST To: AMOL Baird, Eugene Gomez MD It appears he was previously on Cirpo, would you be okay if I sent a new Rx of Cipro? ----- Message ----- From: Isabella Mason RMA Sent: 03/15/2020 2:11 PM HOROLOGIST To: Emerita Camarena RN [place]. Any way you can you send a new Rx for Cipro for him? Isabella ----- Message ----- From: Emerita Camarena RN Sent: 03/15/2020 2:00 PM HOROLOGIST To: AMOL Baird It appears that he was on Cirpo... ----- Message ----- From: Isabella Mason RMA Sent: 03/15/2020 1:55 PM HOROLOGIST To: Emerita Camarena RN Can you see what strengh and directions he was on for Bactrim? I need to send out a Rx to the [facility] in [place] [address] today. Isabella ----- Message ----- From: Eugene Gomez MD Sent: 03/14/2020 4:37 PM HOROLOGIST To: AMOL Baird, AMOL Monet Yes. Isabella - let's keep him on Bactrim for another week. ----- Message ----- From: Shauna Cummings RMA Sent: 03/14/2020 3:28 PM HOROLOGIST To: Eugene Gomez MD You wanted this patient to continue antibiotics and dressing changes as needed.Patient's said he has not taken any antibiotics in 10 days because IR would not refill prescription.She has called them several times asking them to refill and they have not done it. She wants to know if you will. LOGIST LOGIST documented in this encounter Plan of Treatment [...] documented as of this encounter Care Teams Hide Handler Relationship Specialty Start Date End Date Jean-Claude Crawford MD [address] [facility] [address] [place] [address] PCP - General Family Medicine 08/18/19 04/11/20 documented as of this encounter
--- OUTSIDE RECORDS SUMMARY | 2024-04-08 10:38 | XMS_ITS | Encounter Summary ---
Author Organization [facility] Address [address] [facility] [address] [place] [address] Care Team Providers Care Executive Vice President And Chief Financial Officer Name Role Phone Jean-Claude Crawford MD Primary Care Provider Jean-Claude Crawford MD Unavailable [phone] Encounter Details Date Type Department Care Team (Late st Contact Info) Description 06/22/2020 Orders Only [facility] Cardiology [address] [facility] [address] [place] [address] Abiodun Novak MD [address] [facility] [address] [place] [address] Social History Tobacco Use Types Packs/Day Years Used Date Smoking Tobacco: Every Day Cigarettes Smokeless Tobacco: Never Alcohol Use Standard Drinks/Week Comments Yes 0 (1 standard drink = 0.6 oz pur e alcohol) limited Sex and Gender Information Value Date Recorded Sex Assigned at Not on file Legal Sex Male 9:10 PM COMMUNITY PLACEMENT WORKER Gender Identity Not on file Sexual Orientation Not on file documented as of this encounter Plan of Treatment Not on file documented as of this encounter Procedures Procedure Name Priority Date/Time Associated Diagnosis Comments COMPREHENSIVE METABOLIC PANEL Routine 06/22/2020 12:58 PM CDT documented in this encounter Results * (ABNORMAL) Comprehensive metabolic panel (06/22/2020 12:58 PM CDT) [facility] Glucose 168(H) 65 - 99 mg/dL [facility] Comment: ? Fasting reference interval For someone without known diabetes, a glucose value >125 mg/dL indicates that they may have diabetes and this should be confirmed with a follow-up test. BUN 7 7 - 25 mg/dL [facility] Creatinine 0.81 0.70 - 1.25 mg/dL [facility] Comment: For patients >49 years of age, the reference limit for Creatinine is approximately 13% higher for people identified as -British. eGFR NON-AFR. CANADIAN 91 > OR = 60 mL/min/1 .73m2 [facility] EGFR 105 > OR = 60 mL/min/1 .73m2 [facility] BUN/creat ratio NOT APPLICABLE 6 - 22 (calc) [facility] Sodium 140 135 - 146 mmol/L [facility] Potassium, pl 3.6 3.5 - 5.3 mmol/L [facility] Chloride 102 98 - 110 mmol/L [facility] CO2 29 20 - 32 mmol/L [facility] Calcium 8.9 8.6 - 10.3 mg/dL [facility] Protein, sr 5.9(L) 6.1 - 8.1 g/dL [facility] Albumin 3.5(L) 3.6 - 5.1 g/dL [facility] GLOBULIN 2.4 1.9 - 3.7 g/dL (calc) [facility] Alb/glob ratio 1.5 1.0 - 2.5 (calc) [facility] Bilirubin, total 0.5 0.2 - 1.2 mg/dL [facility] Alk phos 87 35 - 144 U/L [facility] AST 16 10 - 35 U/L [facility] ALT (SGPT) 9 9 - 46 U/L [facility] 06/22/2020 12:5 8 PM CDT 06/22/2020 12:59 PM CDT us Abiodun Novak MD LAB BLOOD ORDERABLES Mariangel clifford Result [facility] [address] [address] [phone] documented in this encounter Visit Diagnoses Not [...] as of this encounter Care Teams Executive Vice President And Chief Financial Officer Relationship Specialty Start Date End Date Jean-Claude Crawford MD [address] [place] [address] PCP - General Family Medicine 04/12/20 06/12/22 Jean-Claude Crawford MD [address] [place] [address] Family Medicine 04/12/20 documented as of this encounter
--- OUTSIDE RECORDS SUMMARY | 2024-04-08 10:38 | XMS_ITS | Encounter Summary ---
Author Organization [facility] Address [address] [place] [address] Phone Care Team Providers Care Supervisor Paint Roller Covers Name Role Phone Jean-Claude Crawford MD Primary Care Provider Jean-Claude Crawford MD Unavailable [phone] Reason for Visit * Consultation (Routine) - Closed Specialty Diagnoses / Procedures Referred By Contvon t Referred To Contact Hepatobiliary Surgery Diagnoses Cholecystitis Jean-Claude Crawford MD [address] [place] [address] Phone: tel: fax: Eugene Gomez MD [address] [facility] [phone] [place] [address] Phone: tel: fax: Referral ID Status Reason Start Date Expiration Date V isits Requested Visits Authorized [id number] Closed Specialty Services Required 12/21/2019 01/19/2021 99 99 Encounter Details Date Type Department Care Team (Latest Contact Info) Description 08/05/2020 12:30 PM CDT Office Visit [facility] Surgery [address] [facility] [address] [place] [phone] Eugene Gomez MD [address] [facility] [phone] [place] [address] Cholecystitis (Primary Dx) Social History Tobacco Use Types [...] on file Legal Sex 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 Eugene Gomez M.D., F.A.C.S. Chief, Section of Surgical Oncology [place] Distinguished elastic attacher chainstitch [facility] [[email or web address] Cancer [facility] - voice - fax [facility] Mailing Address: Overnight Mailing Address: [address] [place] [address] [place] [address] for [facility], [address] [place], [place] [address] [place], [place] [address] POST-OPERATIVE VISIT DATE OF VISIT: 08/05/20 REASON FOR VISIT: Mr. Redman presents today for a post-operative visit after an open subtotal fenestrating cholecystectomy on 07/13/2020 for treatment of chronic cholecystitis and a cholecystocutaneous fistula. Final pathology of the surgical specimen demonstrated chronic cholecystitis. HISTORY OF PRESENT ILLNESS: Since surgery, Mr. Redman has overall been doing well. He reports a pulling sensation at the surgical site. He is using Tylenol 2000mg once daily and a total of 1600 mg of Advil per day. He then uses one Tramadol at night. He reports no wound erythema or drainage. No fevers or chills. He has been having normal bowel movements and urination. PHYSICAL EXAMINATION: VITAL SIGNS: There were no vitals taken for this visit. GENERAL: Alert and oriented x 3 in no apparent distress. ABDOMEN: Soft, non-tender, nondistended, no rebound/guarding. Incision is healing well with no signs of infection or seroma. No evidence of hernia. The alice were removed and steri strips were placed. ASSESSMENT: 70 y.o. male who is recovering well after subtotal fenestrating cholecystectomy for chronic cholecystitis. PLAN: I reviewed Mr. Redman???s pathology report and provided him with a copy. Removing all the gallstones and resection of his gallbladder should alleviate any further problems. He will continue to refrain from heavy lifting, pushing, or pulling until he is 6 weeks post-op. At that time, he can liberalize his activities. I can see him back on an as needed basis if he is having any issues. We discussed titrating his analgesic regiment to Tylenol 1000 mg every 6 hours with the goal of weaning off Ibuprofen to avoid gastric irritation. He was provided a refill of Tramadol for breakthrough pain.I answered all of Mr. Redman's questions to his satisfaction. My total encounter time on 08/05/2020 was 18 minutes which was spent in the activities documented inthe note. This includes time spent prior to the visit and after the visit in direct care of the patient. This time does not include time spent in any separately reportable services. Eugene Gomez M.D., F.A.C.S. Chief, Section of Surgical Oncology elastic attacher chainstitch CC: Patient Care Team: Jean-Claude Crawford MD as PCP - General (Family Medicine) Jean-Claude Crawford MD (Family Medicine) Engineer Internship completed by [employer]. Engineer Internship variances may occur. documented in this encounter Plan of Treatment Not on file documented as of this encounter Visit Diagnoses Diagnosis Cholecystitis- Primary Cholecystitis, unspecified documented in this encounter Additional Health Concerns Infection Onset Date Last Indicated Resolved Time MDR gram neg/ESBL Comment:06/16/2021 IP Review - Pt with scrotal abscess, but is not actively draining (last documented draining on 06/14). Pt remains intubated so requires trach aspirate for isolation discontinuation. Provider notified. Amanda Walker RN 12/19/2019 12/19/2019 documented as of this encounter Care Teams Supervisor Paint Roller Covers Relationship Specialty Start Date End Date Jean-Claude Crawford MD [address] [place] [address] PCP - General Family Medicine 04/12/20 06/12/22 Jean-Claude Crawford MD [address] [place] [address] Family Medicine 04/12/20 documented as of this encounter
--- OUTSIDE RECORDS SUMMARY | 2024-04-08 10:38 | XMS_ITS | Encounter Summary ---
Author Organization [facility] Healthcare Address [address] [place] [address] Care Team Providers Care Vice President Pharmacy Name Role Phone Jean-Claude Crawford MD Primary Care Provider Jean-Claude Crawford MD Unavailable [phone] Reason for Referral * Diagnostic Imaging (Routine) - Closed Specialty Diagnoses / Procedures Referred By Lei t Referred To Contact Radiology Diagnoses Cholecystitis Procedures CT Abdomen Pelvis W Contrast CT Abdomen Pelvis W WO Contrast Eugene Gomez MD Phone: tel: fax: [address] [phone] Referral ID Status Reason Start Date Expiration Date Visits Re quested Visits Authorized [id number] Closed 03/30/2020 04/29/[address] SALES CONSULTANT Reason for Visit * Diagnostic Imaging (Routine) - Closed Specialty Diagnoses / Procedures Referred By Contvon t Referred To Contact Radiology Diagnoses Cholecystitis Procedures CT Abdomen Pelvis W Contrast CT Abdomen Pelvis W WO Contrast Eugene Gomez MD Phone: tel: fax: [address] [phone] Referral ID Status Reason Start Date Expiration Date Visits Re quested Visits Authorized [id number] Closed 03/30/2020 04/29/2021 1 1 Encounter Details Date Type Department Care Team (Latest Contact Info) Description 06/13/2020 11:39 AM DIRECT SALES CONSULTANT - 06/13/2020 11:59 PM DIRECT SALES CONSULTANT Hospital Encounter [facility] [address] [place] [address] Eugene Gomez MD [address] [facility] [id number] [place] [address] Cholecystitis Discharge Disposition: Discharge to home or self care Social History Tobacco Use Types Packs/Day Years Used Date Smoking Tobacco: Every Day Cigarettes Smokeless Tobacco: Never Alcohol Use Standard Drinks/Week Comments Yes 0 (1 standard drink = 0.6 oz pur e alcohol) limited Sex and Gender Information Value Date Recorded Sex Assigned at Not on file 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 Gender Identity Not on file Sexual Orientation Not on file documented as of this encounter Medications at Time of Discharge cholecalciferol (VITAMIN D-3) 5,000 unit tabletIndications:V itamin D Deficiency Take 1 tablet (5,000 Units total) by mouth every other day apixaban (ELIQUIS) 5 mg tabletIndications:a trial fibrillation [...] day 60 tablet 11 0 07/08/19 22 levalbuterol (XOPENEX) 1.25 mg/3 mL nebulizer solution Take 1.25 mg by nebulization as needed for shortness of breath 06/13/19 22 lisinopriL (PRINIVIL,ZESTRIL) 40 mg tablet Take 1 tablet (40 mg total) by mouth daily 30 tablet 11 0 07/08/19 22 metoprolol tartrate (LOPRESSOR) 50 mg immediate release tablet Take 1 tablet (50 mg total) by mouth 2 (two) times a day 60 tablet 0 09/08/19 21 ondansetron ODT (ZOFRAN-ODT) 4 mg disintegrating tablet Take 1 tablet (4 mg total) by mouth every 4 (four) hours as needed for nausea or vomiting 20 tablet 0 06/16/[address] (PROTONIX) 40 mg EC tabletIndications:S tress Ulcer Prophylaxis Take 1 tablet (40 mg total) by mouth daily 30 tablet 11 0 10/05/19 22 polyethylene glycol (MIRALAX) 17 gram packetIndications:c onstipation Take 17 g by mouth daily 06/16/19 21 potassium chloride ER (KLOR-CON) 20 mEq CR tablet Take 2 tablets (40 mEq total) by mouth daily 60 tablet 11 0 07/17/19 21 terazosin (HYTRIN) 10 mg capsule Take 1 capsule (10 mg total) by mouth nightly 30 capsule 0 10/05/19 22 thiamine (VITAMIN B1) 100 mg tabletIndications:T hiamine Deficiency Take 100 mg by mouth every morning 07/31/19 23 documented as of this encounter Discharge Disposition Disposition Code Departure Means Destination Discharge to home or self care documented in this encounter Plan of Treatment Not on file documented as of this encounter Procedures Procedure Name Priority Date/Time Associated Diagnosis Comments CT ABDOMEN PELVIS W CONTRAST Schedule Routine, Read Routine (OP Routine) 06/13/2020 12:13 PM DIRECT SALES CONSULTANT Cholecystitis POCT CREATININE - DEVICE Routine 06/13/2020 11:58 AM DIRECT SALES CONSULTANT documented in this encounter Results * CT Abdomen Pelvis W Contrast (06/13/2020 12:13 PM DIRECT SALES CONSULTANT) Anatomical Region Laterality Modality Body N/A Computed Tomogra phy 06/13/2020 12:3 2 PM DIRECT SALES CONSULTANT Addenda Addendum by Stepan Scott MD on 07/26/2020 3:48 PM CDT ADDENDUM: To correct the title and technique of this exam, the exam performed was a CT of the abdomen and pelvis with intravenous contrast. ??The chest was not scanned. Electronically signed by: Stepan Scott M.D. Impressions 06/13/2020 12:32 PM DIRECT SALES CONSULTANT 1. Interval decrease in size of an abscess extending from the gallbladder fossa the anterior abdominal wall. 2. Extensive colonic diverticulosis. Mild thickening of the right hemicolon may be related to chronic diverticulitis. 3. Small pleural and pericardial effusions. Electronically signed by: Stepan Scott M.D. Narrative 06/13/2020 12:32 PM DIRECT SALES CONSULTANT EXAMINATION: ??Computed tomography of the chest, abdomen [...] by: Stepan Scott M.D. Eugene Gomez MD [facility] CT PROCEDURES Edited Result - Final * POCT creatinine (06/13/2020 11:58 AM DIRECT SALES CONSULTANT) Creatinine POC 0.9 0.7 - 1.3 mg/dL [facility] Blood specimen (specimen) 06/13/2020 11:58 AM DIRECT SALES CONSULTANT 06/13/2020 11:58 AM DIRECT SALES CONSULTANT us Eugene Gomez MD LAB POCT ORDERABLES - DE VICE Final Result [facility] Department [place] [address] documented in this encounter Visit Diagnoses Diagnosis Cholecystitis Cholecystitis, unspecified documented in this encounter Administered Medications Inactive Administered Medications - up to 3 most recent administrations Medication Order MAR Action Action Date Dose Rate Site ioversoL (OPTIRAY 350) syringe syringe 100 mL 100 mL, intravenous, Once in imaging, contrast, Starting on 06/13/20 at 1208, For 1 dose Given 06/13/2020 12:13 PM DIRECT SALES CONSULTANT 100 mL documented in this encounter Orders Medications Ordered That Bimal ht Not Have Been Administered Count Last Ordered Date First Ordered Date ioversoL (OPTIRAY 350) syrin ge syringe 100 mL 1 06/13/2020 documented in this encounter Additional Health Concerns Infection Onset Date Last Indicated Resolved Time MDR gram neg/ESBL Comment:06/16/2021 IP Review - Pt with scrotal abscess, but is not actively draining (last documented draining on 06/14). Pt remains intubated so requires trach aspirate for isolation discontinuation. Provider notified. Amanda Walker RN 12/19/2019 12/19/2019 documented as of this encounter Care Teams Vice President Pharmacy Relationship Specialty Start Date End Date Jean-Claude Crawford MD [address] [place] [address] PCP - General Family Medicine 04/12/20 06/12/22 Jean-Claude Crawford MD [address] [place] [address] Family Medicine 04/12/20 documented as of this encounter
--- OUTSIDE RECORDS SUMMARY | 2024-04-08 10:38 | XMS_ITS | Encounter Summary ---
Author Organization [facility] Address [address] [place] [address] Phone Care Team Providers Care Interventional Tech Name Role Phone Jean-Claude Crawford MD Primary Care Provider Jean-Claude Crawford MD Unavailable [phone] Reason for Visit * Reason Onset Date Comments Covid 07/12/2020 Encounter Details Date Type Department Care Team (Late st Contact Info) Description 07/12/2020 Telephone [facility] Surgery [address] [facility] Advanced Medicine [address]th [place] [address] [place] [address] Eugene Gomez MD [address] [facility] [phone] [place] [address] Covid Social History Tobacco Use Types Packs/Day Years [...] on file 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 Gender Identity Not on file Sexual Orientation Not on file documented as of this encounter Miscellaneous Notes * Telephone Encounter - Shauna Cummings RMA - 07/12/2020 2:55 PM CDT Gave pt Covid Results * Telephone Encounter - Shauna Cummings RMA - 07/12/2020 2:55 PM CDT ----- Message from Eugene Gomez MD sent at 07/12/2020 6:26 AM CDT ----- Please let patient know that COVID19 test was negative documented in this encounter Plan of Treatment [...] documented as of this encounter Care Teams Interventional Tech Relationship Specialty Start Date End Date Jean-Claude Crawford MD [address] [place] [address] PCP - General Family Medicine 04/12/20 06/12/22 Jean-Claude Crawford MD [address] [place] [address] Family Medicine 04/12/20 documented as of this encounter
--- OUTSIDE RECORDS SUMMARY | 2024-04-08 10:38 | XMS_ITS | Encounter Summary ---
Author Organization [facility] Healthcare Address [address] [place] [address] Care Team Providers Care Drug Safety Assistant Name Role Phone Jean-Claude Salazar MD Primary Care Provider Jean-Claude Salazar MD Unavailable Encounter Details Date Type Department Care Team (Late st Contact Info) Description 07/04/2021 9:10 AM CDT - 07/04/2021 11:10 AM CDT Surgery [facility] Operating Room [address] [place] [address] Yoanna Delvalle MD [address] [place] [address] INTRAMEDULLARY NAILING FEMUR - ANTEGRADE - INTERTROCHANTERIC Surgery Details Date/Time Status Location OR Service Patient Class Case Class Case Type Trauma Case? 07/04/2021 9:10 AM Posted [facility] OR POD 2 204 Orthopaedics Inpatient Urgent - 24 hours Panel 1 Procedure LRB Anes Op Region Wound Class Comments INTRAMEDULLARY NAILING FEMUR - ANTEGRADE - INTERTROCHANTERIC Left General Leg Upper Class II - Iam an Contaminated Surgeon Surgeon Role Service Panel Yoanna Delvalle MD Primary Orthopaed ics 1 Kirill Munguia MD Resident - Assisting Orthopaed ics 1 Buffy Hidalgo MD Resident - Assisting Or thopaedics 1 Case Notes Requested By Kirill @ 20:45 documented in this encounter Social History Tobacco [...] Never 06/16/2021 How often do you attend yazdanism or catholic serv ices? 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 Gender Identity Not on file Sexual Orientation Not on file documented as of this encounter Last Filed Vital Signs Vital Sign Reading Time Taken Comments Blood Pressure 149/91 07/04/2021 8:02 AM CDT Pulse 78 07/04/2021 8:02 AM CDT Temperature 36 ??C (96.8 ??F) 07/04/2021 8:50 AM CDT Respiratory Rate 18 07/04/2021 8:02 AM CDT Oxygen Saturation 96% 07/04/2021 8:02 AM CDT Inhaled Oxygen Concentration - - Weight 90 kg (198 lb 6.6 oz) 06/28/2021 5:00 AM CDT Height 180.3 cm (5' 10.98 ) 06/13/2021 2:[address] Body Mass Index 27.59 06/24/2021 6:29 PM CDT documented in this encounter Discharge Summaries * Julieta Tirado NP - 07/07/2021 4:16 PM CDT [facility] Inpatient Discharge Summary This [...] use??and alcohol alcohol use??who was transferred to [facility] 06/11 from OSH after being found to have trace traumatic SAH and IVH following??a recent??fall.??The patient had been reaching overhead for something in the closetand lost his balance, falling and striking his head. There was loss of consciousness. Of note, he had an unwitnessed fall the week prior. He was first??taken to [facility] via EMS on 06/08 aftersustaining fall with LOC at home. At [facility] the initial head??CT??was??negative and he was admitted [...] for which he was ultimately transferred to [facility]??as a neurosurgery primary patient??the evening of 06/11. [...] SAH and intraventricular hemorrhage - Admitted to [facility] - Keppra 500mg BID x7 days completed - Neuro checks q4hr - PM&R consult completed, rec SNF/LTC, continued PT/OT/SPRING SALVAGE WORKER - Head CT (07/02) with decreasing IVH [...] gtt 06/13-06/14; will need outpatient f/u with Hand Flatwork Finisher - Metoprolol 100 mg BID for rate [...] - Assist 100% with all meals - bindery operator following - Calorie count - Repeat mBS [...] (07/07/21) - Daily dry dressing changes - Tulare to be removed 3 weeks post-op (07/25/21) - Pain control, PT/OT - Follow-up scheduled on 07/[address] Delvalle located at [facility] 6A ? #Bacteroides fragilis scrotal abscess and [...] susceptibilities: susceptible to flagyl - Bactrim d/c'd 3/24, Flagyl completed 06/29 ?? #HTN -??Home lisinopril [...] use. Do not swallow. Commonly known as: BREO ELLIPTA miconazole 2 % cream Apply topically [...] are removed on 07/25 Discharge Wound Type: Stitches/Tulare -07/25/21 alice to be removed from L hip at nursing facility Special Instructions Please contact the Trauma Department if any problems develop, please call the Trauma office [phone]. Please be aware all medications including narcotic [...] Follow-ups Yoanna Delvalle MD Specialty: Orthopedic Surgery [address] [facility] [address] Next Steps: Follow up Instructions: With Orthopedic Trauma Surgery as scheduled 08/17 at 11:00am at [facility] [place] [facility] ([facility]) [address] [place] [address]. Call [phone] with questions regardingthis appointment. Questions: Instructions for follow-up (appointment date and time): With Orthopedic Trauma Surgery as scheduled08/17 at 11:00am at [facility] ([facility]) [address] [place] [address] 6A [facility]. Call [phone] with questions regarding this appointment. To provider: YOANNA DELVALLE Gregory J., MD Specialty: Neurosurgery Relationship: Consulting Physician [address] [place] [address] [address] [facility] [address] Next Steps: Follow up Instructions: -- Follow up with Neurosurgery NEEDED. [phone] Questions: Instructions for follow-up (appointment date and time): -- Follow up with Neurosurgery NEEDED. [phone] To provider: SETH KISER Jason Elliott, MD Specialty: Family Medicine Relationship: PCP - General [address] [place] [address] [address] [address] Next Steps: Follow up Instructions: -- Follow up with your primary care physician in 1-2 weeks following discharge. Questions: To provider: JEAN-CLAUDE SALAZAR Instructions for follow-up (appointment date and time): -- Follow up with your primary care physician in 1-2 weeks following discharge. Future Appointments Date Time Provider Department Center 08/02/2021 11:00 AM [facility] ECHO (210) MBC OP Card [facility] Main 08/02/2021 12:15 PM Abiodun Novak MD [facility] Specialty 08/17/2021 11:00 AM Yoanna Delvalle MD [facility] 6A OS I spent 30 minutes completing this hospital discharge. Vilma Tirado NP 07/07/21 CC: Jean-Claude Salazar MD Cosigned by Deacon Ronald Gardner MD [...] Departure Means Destination Discharge to SNF [facility] documented in this encounter Progress Notes * Amanda Brady LCSW - 07/07/2021 3:42 PM CDT 07/07/21 3458 Discharge Summary Chart reviewed For Medical Necessity Does patient have a planned readmission to hospital planned? No Discharge Disposition SNF, Commercial Insurance, Short term Skilled Specify Facility [facility] Facility Contact Number Report: [phone] Discharge Records Transfer Form Completed;Chart Copied Discharge Additional Assistance Does the patient need discharge transport arranged? Yes Has discharge transport been arranged? Yes Details of Transportation [facility], , Trip # [phone] What day is the transport expected? 07/07/21 [...] care provider (see Follow Up Providers) Per FISH SMOKER, patient is medically stable for discharge at this time. Patient has been accepted at [facility] for admission today, 07/07/21. AMARJIT spoke with Serina at [facility] who reports that insurance authorization has been obtained for transfer. AMARJIT spoke with patient's SO Raine who is aware and agreeable to transfer. AMARJIT answered Raine's questions and provided contact information for facility. RN provided with phone number for report. [facility] arranged for transportation, , Trip # [phone]. ETA 1700 Patient/family informed patient may require ambulance transport. Social work informed patient/family that even if the patient's insurance benefit includes ambulance transport, it may not cover the full cost of the transportation. The patient may be responsible for any out of pocket cost, including mileage beyond the nearest appropriate facility. Patient/family voiced understanding. PAIGE Schneider, TELECOMMUNICATIONS FACILITY EXAMINER * Angelica Juarez RD - 07/07/2021 2:41 [...] use??and alcohol alcohol use??who was transferred to [facility] 06/11 from OSH after being found [...] (197 lb 12 oz) Height: 180.3 cm (' 98 ) Minute Ventilation (L/min): 6.6 L/min Estimated Protein Needs Type of Weight Used for Estimated Protein : [place] Protein Needs Based on g/k.2 Total Protein Estimated Needs (gm): 93.6 Kcal/kg Type of Weight Used for Estimated Kcals: Current Kcal/k Total Kcal/kg Estimated Needs : 2144 Height: 180.3 cm (98 ) Weight: 89.7 kg (197 lb 12 oz) Weight Change: -0.29 kg (-0.66 lbs) Medications: Scheduled Meds: docusate, 100 mg, feeding tube, Daily famotidine, 20 mg, oral, Daily fluticasone furoate-vilanteroL, 1 puff, inhalation, Daily (RT) heparin, 5,000 Units, subcutaneous, Q8H MONET metoprolol tartrate, 100 mg, feeding tube, BID miconazole, , topical, BID iusyvpej-stw-emtmwdq gluconate, 15 mL, feeding tube, Daily pravastatin, [...] Liquid Diet effective now Question Answer Comment ([facility]) Diet type Restricted Modified Consistency: Dysphagia 1 [...] today due to pt's mental status. Per FISH SMOKER, this might be pt's new normal. Consider NG tube placement for now, but consider PEG tube if this will be longterm picture. Noted 1 healing wound documented on [...] Stool patterns Angelica Juarez MS RD LD #[phone] * Taylor Persaud PTA - 07/07/2021 11:46 [...] treatment team and contact the PT or TRAVELING BUYER currently assigned to this patient. If a physical therapy clinician is not assigned to this patient, please call [phone]. 07/07/21 1146 PT Last Visit Session Type [...] bouts of BM hygiene (performed by nursing professor) and 1 bout of sitting on bedpan in chair. Pt requires repeated simple commands with tactile cues, pt [place]; pt cooperative. Basic Mobility - 6 Click [...] Tirado NP - 07/07/2021 10:14 AM CDT [facility] Daily Progress Note Admit: [...] use??and alcohol alcohol use??who was transferred to [facility] 06/11 from OSH after being found to have trace traumatic SAH andIVH following??a recent??fall.??The patient had been reaching overhead for something in the closet and lost his balance, falling and striking his head. There was loss of consciousness. Of note, he had an unwitnessed fall the week prior. He was first taken to [facility] via EMS on 06/08 after sustaining fall with LOC at home. At [facility] the initial head??CT??was??negative and he was admittedovernight 06/08-06/09 for further evaluation and treatment of possible syncopal episodes. There was reported involuntary movements and nystagmus for which he was loaded with Keppra and planned for EEG, the course of this is unclear. He had reportedly been started on CIWA protocol??with librium.??An MRIlater revealed SAH, IVH, small IPH for which he was ultimately transferred to [facility] as a neurosurgeryprimary patient the evening of 06/11. Overnight 06/11-06/12 the patient was not following commands and was somnolent, worsening following??Ativan administration for high CI[facility] score. [facility] morning of [facility]12??for closer [...] consult for continued AMS. PM&R consult and SPRING SALVAGE WORKER re-eval pending. Notified Ortho regarding results of [...] MONET, Elizabeth Persaud NP, 5,000 Units at 07/07/21 0647 ??? metoprolol (LOPRESSOR) tablet 100 mg, 100 mg, feeding tube, BID, Vy Munoz NP, 100 mg at 07/07/21 0950 ??? miconazole (SECURA THICK) 2 % cream, , topical, BID, Andreia Ellis MD, Given at 07/07/21 1005 ??? omtfznxb-ynz-abebzig gluconate (CENTRUM) 0.6 mg iron/mL oral liquid 15 mL, 15 mL, feeding tube,Daily, Cassie Trent NP, 15 mL at 07/07/21 0949 ??? pravastatin (PRAVACHOL) tablet 40 mg, 40 mg, feeding tube, Daily, Cassie Trent NP, 40mg at 07/07/21 0949 ??? ramelteon (ROZEREM) tablet 8 mg, 8 mg, feeding tube, Nightly, Tamiko Ray, GARIMA, 8 mg at 07/06/21 1849 ??? senna 1.76 mg/mL syrup 8.8 mg, 8.8 mg, feeding tube, BID, Sada العلي, GARIMA, 8.8 mg at07/07/21 0949 ??? sodium chloride 0.9% flush 0.5-20 mL, 0.5-20 mL, intra-catheter, Q8H MONET, Belinda Shaffer MD PhD, 10 mL at 07/07/21 0649 ??? sodium chloride 0.9% flush 0.5-20 mL, 0.5-20 mL, intra-catheter, PRN, Belinda Shaffer MD PhD, 10 mL at 06/25/21 0745 ??? terazosin (HYTRIN) capsule 10 mg, 10 mg, feeding tube, Nightly, Ciarra Jama NP, 10 mg at 07/06/212027 ??? thiamine (VITAMIN B1) tablet 100 mg, [...] Liquid Diet effective now Question Answer Comment ([facility]) Diet type Restricted Modified Consistency: Dysphagia 1 [...] (MSEC) 294 ms QTc 473 ms R [place] 46 degrees T [place] 198 degrees Diagnosis Atrial fibrillation with rapid [...] Plan: Active Problems: Hypercholesterolemia Hypertension Atrial fibrillation ([facility]) ([facility]) Chronic systolic heart failure ([facility]) ([facility]) TBI (traumatic brain injury) ([facility]) ([facility]) SAH (subarachnoid hemorrhage) ([facility]) ([facility]) Encephalopathy Acute delirium Scrotal abscess Closed nondisplaced intertrochanteric fracture of left femur ([facility]) ([facility]) Dysphagia Orthostatic hypotension Acute respiratory failure ([facility]) Acute on chronic anemia Thrombocytopenia ([facility]) ([facility]) #Traumatic brain injury with SAH and intraventricular hemorrhage - Admitted to NSGY - Keppra 500mg BID x7 days completed - Neuro checks q4hr - PM&R consult completed, rec SNF/LTC, continued PT/OT/SPRING SALVAGE WORKER - Head CT (07/02) with decreasing IVH [...] gtt 06/13-06/14; will need outpatient f/u with Hand Flatwork Finisher - Metoprolol 100 mg BID for rate [...] - Assist 100% with all meals - bindery operator following - Calorie count - Repeat mBS [...] (07/07/21) - Daily dry dressing changes - Tulare to be removed 3 weeks post-op (07/25/21) - Pain control, PT/OT - Follow-up scheduled on 07/[address] Delvalle located at [facility] 6A #Bacteroides fragilis scrotal abscess and cellulitis [...] at 07/08/2021 12:37 PM CDT * Aliya Bourgeois OT - 07/07/2021 9:31 AM CDT Occupational [...] not assigned to this patient, please call [phone]. 07/07/21 0931 General Session Type Treatment OT [...] transfer 06/29/21 07/28/21 -- Goal Details: To [facility] with Mod A Problem: OT Misc Start [...] Edited by: Buffy Hidalgo MD at 07/07/2021 4759 Objective Vitals: 24hr Min/Max: Temp Min: 36.3 [...] 2233 07/03/21 0008 SODIUM mmol/L -- -- 138 < [...] antimicrobial susceptibility testing result. Susceptibilities performed by [facility], * * * * * [...] soiled or have shadowing before that time Sutures/Tulare: Will be removed 3 weeks after surgical [...] on 07/[address] Delvalle located at [facility] Edited by: Buffy Hidalgo MD at 07/07/2021 6029 Please call with questions during daytime. See below for overnight issues. ??? If you know the resident's name on the appropriate orthopaedic surgery team, please use [email or web address] to page resident directly. ??? If questions arise and the appropriate resident can't be reached or you are calling overnight, please contact [phone] ([facility]- 7:30 PM - 6:30 AM - Floor Resident) or [phone] (24 hours/day - Consult Resident) Cosigned by Yoanna Delvalle MD at 07/09/2021 10:12 PM CDT * Angelica Juraez, RD - 07/06/2021 3:23 PM CDT Nutrition [...] use??and alcohol alcohol use??who was transferred to [facility] 06/11 from OSH after being found [...] of Weight Used for Estimated Protein : [place] Protein Needs Based on g/k.2 Total Protein [...] (RT) heparin, 5,000 Units, subcutaneous, Q8H MONET magnesium oxide, 800 mg, oral, BID metoprolol tartrate, 100 mg, feeding tube, BID miconazole, , topical, BID kttobqoh-oln-cddqpfv gluconate, 15 mL, feeding tube, Daily pantoprazole [...] Liquid Diet effective now Question Answer Comment ([facility]) Diet type Restricted Modified Consistency: Dysphagia 1 [...] today due to pt's mental status. Per FISH SMOKER, this might be pt's new normal. Consider NG tube placement for now, but consider PEG tube if this w ill be longterm picture. Noted 1 healing wound documented on [...] Stool patterns Angelica Juarez, MS RD LD #[phone] * Elizabeth Persaud NP - 07/06/2021 1:42 PM CDT [facility] Daily Progress Note Admit: [...] use??and alcohol alcohol use??who was transferred to [facility] 06/11 from OSH after being found to have trace traumatic SAH andIVH following??a recent??fall.??The patient had been reaching overhead for something in the closet and lost his balance, falling and striking his head. There was loss of consciousness. Of note, he had an unwitnessed fall the week prior. He was first taken to [facility] via EMS on 06/08 after sustaining fall with LOC at home. At [facility] the initial head??CT??was??negative and he was admittedovernight 06/08-06/09 for further evaluation and treatment of possible syncopal episodes. There was reported involuntary movements and nystagmus for which he was loaded with Keppra and planned for EEG, the course of this is unclear. He had reportedly been started on CIWA protocol??with librium.??An MRIlater revealed SAH, IVH, small IPH for which he was ultimately transferred to [facility] as a neurosurgeryprimary patient the evening of 06/11. Overnight 06/11-06/12 the patient was not following commands and was somnolent, worsening following??Ativan administration for high CIWA score. [facility] morning of [facility]12??for closer [...] consult for continued AMS. PM&R consult and SPRING SALVAGE WORKER re-eval pending. Notified Ortho regarding results of [...] PRN, Cassie Trent NP, 650 mg at 07/05/212128 ??? albuterol 2.5 [...] BID, Elizabeth Persaud NP, 800 mg at 07/06/2156 ??? metoprolol (LOPRESSOR) tablet 100 mg, 100 mg, feeding tube, BID, Vy Munoz NP, 100 mg at 07/06/2156 ??? miconazole (SECURA THICK) 2 % cream, , topical, BID, Andreia Ellis MD, Given at 07/05/21 0759 ??? rgchdqsg-gie-darwfki gluconate (CENTRUM) 0.6 mg iron/mL oral liquid 15 mL, 15 mL, feeding tube,Daily, Cassie Trent NP, 15 mL at 07/06/21955 ??? pantoprazole DR (PROTONIX) extended release tablet 40 mg, 40 mg, oral, Daily, Elizabeth Persaud NP, 40 mg at 07/06/21 0957 ??? pravastatin (PRAVACHOL) tablet 40 mg, 40 mg, feeding tube, Daily, Cassie Trent NP, 40mg at 07/06/2156 ??? ramelteon (ROZEREM) tablet 8 mg, 8 mg, feeding tube, Nightly, Tamiko Ray NP, 8 mg at 07/05/21 1747 ??? senna [...] Nightly, Ciarra Jama NP, 10 mg at 03/30/22 2129 ??? thiamine (VITAMIN B1) tablet 100 mg, 100 mg, feeding tube, Daily, Jair Jay MD, 100 mg at 07/06/21 0956 ??? traZODone (DESYREL) tablet 100 mg, 100 mg, feeding tube, Nightly, Ciarra Jama NP,100 mg at 07/05/21 2129 Diet: Dietary Orders (From admission, onward) Start Ordered 07/06/21 1047 Oral Nutrition Supplements Select Supplement: Ensure Plus - Abby All Meals Question: Select Supplement: Answer: Ensure Plus - Abby 07/06/21 1046 07/06/21 0656 Adult Diet Restricted; Dysphagia 1 (pureed); Regular Liquid Diet effective now Question Answer Comment ([facility]) Diet type Restricted Modified Consistency: Dysphagia 1 [...] (MSEC) 294 ms QTc 473 ms R [place] 46 degrees T [place] 198 degrees Diagnosis Atrial fibrillation with rapid [...] Plan: Active Problems: Hypercholesterolemia Hypertension Atrial fibrillation ([facility]) ([facility]) Chronic systolic heart failure ([facility]) ([facility]) TBI (traumatic brain injury) ([facility]) ([facility]) SAH (subarachnoid hemorrhage) ([facility]) ([facility]) Encephalopathy Acute delirium Scrotal abscess Closed nondisplaced intertrochanteric fracture of left femur ([facility]) ([facility]) Dysphagia Orthostatic hypotension Acute respiratory failure ([facility]) Acute on chronic anemia Thrombocytopenia ([facility]) ([facility]) #Traumatic brain injury with SAH and intraventricular hemorrhage - Admitted to NSGY - Keppra 500mg BID x7 days completed - Neuro checks q4hr - PM&R consult completed, rec SNF/LTC, continued PT/OT/SPRING SALVAGE WORKER - Head CT (07/02) with decreasing IVH [...] gtt 06/13-06/14; will need outpatient f/u with Hand Flatwork Finisher - Metoprolol 100 mg BID for rate [...] - Assist 100% with all meals - bindery operator following - Calorie count - Repeat mBS [...] POD3 dressing change by Ortho (07/07/21) - Tulare to be removed 3 weeks post-op (07/25/21) - Pain control, PT/OT - Follow-up scheduled on 07/[address] Delvalle located at [facility] #Bacteroides fragilis scrotal abscess and cellulitis [...] atrial fibrillation (on eliquis, last 33), CHF, COPD Plan: CMN L IT fx. [...] Edited by: Buffy Hidalgo MD at 07/06/2021 0509 Objective Vitals: 24hr Min/Max: Temp Min: 36.3 ??C (97.3 ??F) Max: 36.9 ??C (98.4 ??F) Pulse Min: 81 Max: 116 BP Min: 102/76 Max: 143/95 Resp Min: 18 Max: 20 SpO2 Min: 94 % Max: 96 % I/O last 2 completed shifts: In: - Out: 850 [Urine:850] No intake/output data recorded. Lab/Diagnostic Review: Recent Labs Lab Units 07/05/21 2333 07/04/21 1727 07/03/21 2235 07/03/213 07/03/21 0008 SODIUM mmol/L 138 < > [...] antimicrobial susceptibility testing result. Susceptibilities performed by [facility], * * * * * [...] soiled or have shadowing before that time Sutures/[place]: Will be removed 3 weeks after surgical [...] on 07/[address] Delvalle located at [facility] Edited by: Buffy Hidalgo MD at 07/06/2021 0003 Please call with questions during daytime. See below for overnight issues. ??? If you know the resident's name on the appropriate orthopaedic surgery team, please use [email or web address] to page resident directly. ??? If questions arise and the appropriate resident can't be reached or you are calling overnight, please contact [phone] ([facility]- 7:30 PM - 6:30 AM - Floor Resident) or [phone] (24 hours/day - Consult Resident) Cosigned by [...] not assigned to this patient, please call [phone]. 07/05/21 0904 General Session Type Treatment OT [...] step commands with repetition (Pt blind and [place]) Safety Judgment Decreased awareness of need for [...] transfer 06/29/21 07/06/21 -- Goal Details: To [facility] with Mod A Problem: OT Misc Start [...] use??and alcohol alcohol use??who was transferred to [facility] 06/11 from OSH after being found [...] of Weight Used for Estimated Protein : [place] Protein Needs Based on g/k.2 Total Protein [...] feeding tube, BID miconazole, , topical, BID wqeahuwu-lmc-mjngucd gluconate, 15 mL, feeding tube, Daily pantoprazole, [...] Liquid Diet effective now Question Answer Comment ([facility]) Diet type Restricted Modified Consistency: Dysphagia 1 [...] today due to pt's mental status. Per FISH SMOKER, this might be pt's new normal. Consider NG tube placement for now, but consider PEG tube if this w ill be longterm picture. Noted 1 healing wound documented on [...] Stool patterns Angelica Juarez, MS RD LD #[phone] * Buffy Hidalgo MD - 07/05/2021 1:13 [...] antimicrobial susceptibility testing result. Susceptibilities performed by [facility], * * * * * [...] on 07/[address] Delvalle located at [facility] Edited by: Buffy Hidalgo MD at 07/05/2021 5724 Please call with questions during daytime. See below for overnight issues. ??? If you know the resident's name on the appropriate orthopaedic surgery team, please use [email or web address] to page resident directly. ??? If questions arise and the appropriate resident can't be reached or you are calling overnight, please contact [phone] ([facility] 7:30 PM - 6:30 AM - Floor Resident) or [phone] (24 hours/day - Consult Resident) Cosigned by [...] treatment team and contact the PT or TRAVELING BUYER currently assigned to this patient. If a physical therapy clinician is not assigned to this patient, please call [phone]. 07/05/21 1110 PT Last Visit Session Type [...] Follows one step commands with repetition (pt [place] which may affect command following) Safety Judgment [...] supine supervision 07/03/21 07/17/21 -- * Vy Munoz, GARIMA - 07/05/2021 5:38 AM CDT [facility] Surgery Daily Progress Note Admit: [...] use??and alcohol alcohol use??who was transferred to [facility] 06/11 from OSH after being found to have trace traumatic SAH andIVH following??a recent??fall.??The patient had been reaching overhead for something in the closet and lost his balance, falling and striking his head. There was loss of consciousness. Of note, he had an unwitnessed fall the week prior. He was first taken to [facility] via EMS on 06/08 after sustaining fall with LOC at home. At [place] the initial head??CT??was??negative and he was admittedovernight 06/08-06/09 for further evaluation and treatment of possible syncopal episodes. There was reported involuntary movements and nystagmus for which he was loaded with Keppra and planned for EEG, the course of this is unclear. He had reportedly been started on CIWA protocol??with librium.??An MRIlater revealed SAH, IVH, small IPH for which he was ultimately transferred to [facility] as a neurosurgeryprimary patient the evening of 06/11. Overnight 06/11-06/12 the patient was not following commands and was somnolent, worsening following??Ativan administration for high CIWA score. [facility] morning of 06[facility]12??for closer [...] 9400 ICU for closer monitoring. Interval History: 07/05: [...] consult for continued AMS. PM&R consult and SPRING SALVAGE WORKER re-eval pending. Notified Ortho regarding results of [...] Munoz NP, Last Rate: 250 mL/hr at 07/05/218, 1,000 mL at 07/05/21 0248 ??? magnesium oxide (MAG-OX) tablet 400 mg, 400 mg, oral, Once, Elizabeth Persaud NP ??? metoprolol tartrate (LOPRESSOR) immediate release tablet 50 mg, 50 mg, feeding tube, BID, Jair Jay MD, 50 mg at 07/04/211957 ??? miconazole (SECURA THICK) 2 % cream, , topical, BID, Andreia Ellis MD, Given at 07/04/211999 ??? ydrnubdu-ncz-zwbuycb gluconate (CENTRUM) 0.6 mg iron/mL oral liquid [...] Nightly, Tamiko Ray NP, 8 mg at 07/04/21 1623 ??? senna 1.76 mg/mL syrup 8.8 mg, 8.8 mg, feeding tube, BID, Sada العلي NP, 8.8 mg at07/04/211957 ??? sodium chloride 0.9% [...] Liquid Diet effective now Question Answer Comment ([facility]) Diet type Restricted Modified Consistency: Dysphagia 1 (pureed) Fluid Consistency: No Liquid 07/04/21 1238 06/28/21 1217 Oral Nutrition Supplements Select Supplement: Ensure Pudding - Abby All Meals Question: Select Supplement: Answer: Ensure Pudding - Abby 06/28/21 1216 Activity: As tolerated Is&Os: I/O last 2 completed shifts: In: 2622 [I.V.:2622] Out: 450 [Urine:250; Blood:200] No intake/output data [...] Plan: Active Problems: Hypercholesterolemia Hypertension Atrial fibrillation ([facility]) ([facility]) Chronic systolic heart failure ([facility]) ([facility] TBI (traumatic brain injury) ([facility]) ([facility]) SAH (subarachnoid hemorrhage) ([facility]) ([facility]) Encephalopathy Acute delirium Scrotal abscess Closed nondisplaced intertrochanteric fracture of left femur ([facility]) ([facility]) Dysphagia Orthostatic hypotension Acute respiratory failure ([facility]) #Traumatic brain injury with SAH and intraventricular hemorrhage - Admitted to [facility] - Keppra 500mg BID x7 days completed - Neuro checks q4hr - PM&R consult completed, rec SNF/LTC, continued PT/OT/SPRING SALVAGE WORKER - Head CT (07/02) with decreasing IVH [...] gtt 06/13-06/14; will need outpatient f/u with Hand Flatwork Finisher - increased metoprolol 100 mg BID for [...] - Continue DDI diet, NO LIQUIDS - bindery operator following - Calorie count - Repeat mBS [...] on 07/[address] Delvalle located at [facility] ?? #Bacteroides fragilis scrotal abscess [...] History: s/p CMN L IT fx 07/04/21. magdalene Crain. WBAT LLE. Ancef x24h. DVT ppx per [...] [I.V.:422] Out: 0 I/O this shift: In: 2200 [I.V.:2200] Out: 450 [Urine:250; Blood:200] Physical Exam: [...] antimicrobial susceptibility testing result. Susceptibilities performed by [facility], * * * * * [...] on 07/[address] Delvalle located at [facility] Edited by: Buffy Hidalgo MD at 07/04/2021 3496 Please call with questions during daytime. See below for overnight issues. ??? If you know the resident's name on the appropriate orthopaedic surgery team, please use [email or web address] to page resident directly. ??? If questions arise and the appropriate resident can't be reached or you are calling overnight, please contact [phone] ([facility] 7:30 PM - 6:30 AM - Floor Resident) or [phone] (24 hours/day - Consult Resident) Cosigned by Yoanna Delvalle MD at 07/04/2021 3:59 PM CDT * Elizabeth Persaud NP - 07/04/2021 8:50 AM CDT [facility] Daily Progress Note Admit: [...] use??and alcohol alcohol use??who was transferred to [facility] 06/11 from OSH after being found to have trace traumatic SAH andIVH following??a recent??fall.??The patient had been reaching overhead for something in the closet and lost his balance, falling and striking his head. There was loss of consciousness. Of note, he had an unwitnessed fall the week prior. He was first taken to [facility] via EMS on 06/08 after sustaining fall with LOC at home. At [place] the initial head??CT??was??negative and he was admittedovernight 06/08-06/09 for further evaluation and treatment of possible syncopal episodes. There was reported involuntary movements and nystagmus for which he was loaded with Keppra and planned for EEG, the course of this is unclear. He had reportedly been started on CIWA protocol??with librium.??An MRIlater revealed SAH, IVH, small IPH for which he was ultimately transferred to [facility] as a neurosurgeryprimary patient the evening of 06/11. Overnight 06/11-06/12 the patient was not following commands and was somnolent, worsening following??Ativan administration for high CIWA score. [facility] morning of 06/12??for closer [...] consult for continued AMS. PM&R consult and SPRING SALVAGE WORKER re-eval pending. Notified Ortho regarding results of [...] Movement: Yes Medications: Current Facility-Administered Medications: ??? [JUN Hold] acetaminophen (TYLENOL) tablet 650 mg, 650 mg, feeding tube, Q4H PRN, Cassie Trent NP, 650 mg at 06/18/21 0035 ??? [MAR Hold] albuterol 2.5 mg/0.5 mL nebulizer solution 1.25 mg, 1.25 mg, nebulization, Q6H PRN (RT), Jair Jay MD ??? [JUN Hold] docusate (COLACE) 10 mg/mL oral liquid 100 mg, 100 mg, feeding tube, Daily, Sada العلي, GARIMA, 100 mg at 07/03/21 1052 ??? [JUN Hold] fluticasone furoate-vilanteroL (BREO ELLIPTA) 100-25 mcg/dose inhaler 1 puff, 1 puff, inhalation, Daily (RT), Jahaira Brown NP, 1 puff at 07/03/21 0910 ??? Lactated Ringer's (LR) infusion, 30 mL/hr, intravenous, Continuous, Bryson Villar,DO ??? [MAR Hold] magnesium oxide (MAG-OX) tablet 400 mg, 400 mg, oral, Once, Elizabeth Persaud NP ??? [MAR Hold] metoprolol tartrate (LOPRESSOR) immediate release tablet 50 mg, 50 mg, feeding tube,BID, Jair Jay MD, 50 mg at 07/03/21 2238 ??? [MAR Hold] miconazole (SECURA THICK) 2 % cream, , topical, BID, Andreia Ellis MD, Given at 07/04/21 0805 ??? [JUN Hold] roztqznk-qpm-vsylfhf gluconate (CENTRUM) 0.6 mg iron/mL oral liquid [...] Ray NP,8 mg at 07/03/21 1802 ??? [MAR Hold] senna 1.76 mg/mL syrup 8.8 mg, 8.8 mg, feeding tube, BID, Sada العلي NP, 8.8 mg at 07/03/217 ??? [MAR Hold] sodium chloride 0.9% flush 0.5-20 mL, 0.5-20 mL, intra-catheter, Q8H MONET, Belinda Shaffer MD PhD, 10 mL at 07/03/21 2239 ??? [MAR Hold] sodium chloride 0.9% flush 0.5-20 mL, 0.5-20 mL, intra-catheter, PRN, Belinda Shaffer MD PhD, 10 mL at 06/25/21 0745 ??? sodium chloride 0.9% flush 0.5-20 mL, 0.5-20 mL, intra-catheter, PRN, Bryson Villar, DO ??? [MAR Hold] terazosin (HYTRIN) capsule 10 mg, 10 mg, feeding tube, Nightly, Ciarra Jama NP, 10 mg at 07/03/212235 ??? [MAR Hold] thiamine (VITAMIN B1) tablet 100 mg, 100 mg, feeding tube, Daily, Jair Jay MD, 100 mg at 07/03/21 1052 ??? [MAR Hold] traZODone (DESYREL) tablet 100 mg, 100 mg, feeding tube, Nightly, Ciarra Jama NP, 100 mg at 07/03/212236 Diet: Dietary Orders (From admission, onward) Start [...] SAH and intraventricular hemorrhage - Admitted to [facility] - Keppra 500mg BID x7 days completed - Neuro checks q4hr - PM&R consult completed, rec SNF/LTC, continued PT/OT/SPRING SALVAGE WORKER - Head CT (07/02) with decreasing IVH [...] gtt 06/13-06/14; will need outpatient f/u with Hand Flatwork Finisher - Continue metoprolol 50 mg BID for [...] - Continue DDI diet, NO LIQUIDS - bindery operator following - Calorie count - Repeat mBS [...] on 07/[address] Delvalle located at [facility] ?? #Bacteroides fragilis scrotal abscess and cellulitis [...] atrial fibrillation (on eliquis, last 33), CHF, COPD Plan: CMN L IT fx. [...] antimicrobial susceptibility testing result. Susceptibilities performed by [facility], * * * * * [...] on 07/[address] Delvalle located at [facility] Edited by: Buffy Hidalgo MD at 07/04/2021 0716 Please call with questions during daytime. See below for overnight issues. ??? If you know the resident's name on the appropriate orthopaedic surgery team, please use [email or web address] to page resident directly. ??? If questions arise and the appropriate resident can't be reached or you are calling overnight, please contact [phone] ([facility] 7:30 PM - 6:30 AM - Floor Resident) or [phone] (24 hours/day - Consult Resident) Cosigned by Yoanna Delvalle MD at 07/04/2021 7:19 AM CDT Associated attestation - Yoanna Delvalle MD - 07/04/2021 7:19 AM CDT I have seen and examined the patient on 07/04/21. I agree with the findings and plan of care as documented in the resident's/fellow's note.. failure to mobilize. Complete IT on MRI. Plan for operative fixation * Angelica Juarez, ASHLEY - 07/03/2021 6:41 PM CDT Nutrition Tube [...] use??and alcohol alcohol use??who was transferred to [facility] 06/11 from OSH after being found [...] of Weight Used for Estimated Protein : [place] Protein Needs Based on g/k.2 Total Protein [...] feeding tube, BID miconazole, , topical, BID ldsqtrjz-xuq-usijrak gluconate, 15 mL, feeding tube, Daily pantoprazole, [...] Liquid Diet effective now Question Answer Comment ([facility]) Diet type Restricted Modified Consistency: Dysphagia 1 [...] today due to pt's mental status. Per FISH SMOKER, this might be pt's new normal. Consider NG tube placement for now, but consider PEG tube if this w ill be longterm picture. Noted 1 healing wound documented on [...] 06/29: B: refused, L: refused, D: refused 3/25: B: 50 % per RN report, no [...] Stool patterns Angelica Juarez, MS RD LD #[phone] * Rui Perez MD - 07/03/2021 2:41 PM CDT Brief Ortho Note MBB Dx: L IT fx Injury Mechanism: SLMF OI: TBI, SAH; chronic draining scrotal abscess PMHx: HTN, atrial fibrillation (on eliquis, last 06/08), CHF, COPD Plan: CMN L IT fx [...] Perez MD Department of Orthopaedic Surgery, PGY-1 [facility] [place] ? During normal business hours - If you know the resident's name on the appropriate orthopaedic surgery team, please use [email or web address] to page resident directly. ? If you have questions overnight or can't reach the appropriate resident, please call the Orthopaedic Surgery Consult Pager [phone] or [phone] to have your questions answered or be [...] not assigned to this patient, please call [phone]. Multi-Disciplinary Problems (from Occupational Therapy) Active Problems [...] 07/10/21 -- Goal Details: With Min A VIJI Arias reviewed by Vane Baker 07/03/21 Cosigned by Vane Baker OT at 07/03/2021 3:19 PM CDT * Elizabeth Persaud FISH SMOKER - 07/03/2021 10:50 AM CDT [facility] Daily Progress Note Admit: [...] use??and alcohol alcohol use??who was transferred to [facility] 06/11 from OSH after being found to have trace traumatic SAH andIVH following??a recent??fall.??The patient had been reaching overhead for something in the closet and lost his balance, falling and striking his head. There was loss of consciousness. Of note, he had an unwitnessed fall the week prior. He was first taken to [facility] via EMS on 06/08 after sustaining fall with LOC at home. At [place] the initial head??CT??was??negative and he was admittedovernight 06/08-06/09 for further evaluation and treatment of possible syncopal episodes. There was reported involuntary movements and nystagmus for which he was loaded with Keppra and planned for EEG, the course of this is unclear. He had reportedly been started on CIWA protocol??with librium.??An MRIlater revealed SAH, IVH, small IPH for which he was ultimately transferred to [facility] as a neurosurgeryprimary patient the evening of 06/11. Overnight 06/11-06/12 the patient was not following commands and was somnolent, worsening following??Ativan administration for high CIWA score. [facility] morning of 06/12??for closer [...] 9400 ICU for closer monitoring. Interval History: 07/03: No acute events overnight, Cr 0.73 (0.99). Continues on room air, BM x1. More interactive today. Re-engage Neurology for consult for continued AMS. PM&R consult and SPRING SALVAGE WORKER re-eval pending. Notified Ortho regarding results of [...] Sada العلي, GARIMA, 100 mg at 07/03/21 1052 ??? fluticasone [...] Jair Jay MD, 50 mg at 07/03/21 105 ??? miconazole (SECURA THICK) 2 % cream, , topical, BID, Andreia Ellis MD, Given at 07/03/21 1053 ??? hpojjjxb-kyi-ihknlfy gluconate (CENTRUM) 0.6 mg iron/mL oral liquid [...] tube, BID, Sada العلي, GARIMA, 8.8 mg at07/03/21 1052 ??? sodium chloride 0.9% flush 0.5-20 mL, 0.5-20 mL, intra-catheter, Q8H MONET, Belinda Shaffer MD PhD, 10 mL at 07/03/21 0540 ??? sodium chloride 0.9% flush 0.5-20 mL, 0.5-20 mL, intra-catheter, PRN, Belinda Shaffer MD PhD, 10 mL at 06/25/21 0745 ??? terazosin (HYTRIN) capsule 10 mg, 10 mg, feeding tube, Nightly, Ciarra Jama NP, 10 mg at 07/02/212114 ??? thiamine (VITAMIN B1) tablet 100 mg, [...] Liquid Diet effective now Question Answer Comment ([facility]) Diet type Restricted Modified Consistency: Dysphagia 1 [...] Active Problems: Hypercholesterolemia Hypertension Atrial fibrillation (CMS/HCC) ([facility]) Chronic systolic heart failure (CMS/HCC) ([facility]) TBI (traumatic brain injury) (CMS/HCC) (HCC) SAH (subarachnoid hemorrhage) (CMS/HCC) ([facility]) Encephalopathy Acute delirium Scrotal abscess Closed nondisplaced intertrochanteric fracture of left femur ([facility]) ([facility]) Dysphagia Orthostatic hypotension Acute respiratory failure ([facility]) #Traumatic brain injury with SAH and intraventricular [...] gtt 06/13-06/14; will need outpatient f/u with Hand Flatwork Finisher - Continue metoprolol 50 mg BID for [...] - Continue DDI diet, NO LIQUIDS - bindery operator following - Calorie count ?? #Left IT [...] patient on 07/03/21 in conjunction with the FISH SMOKER. I agree with evaluation, assessment and plan [...] Calorie counts Deacon Shannon Gardner MD Adjunct Glassblower Division of Acute and Critical Care Surgery [...] in flowsheets. Plan of care discussed with patient/sales representative meats, including as it relates to Active Problems: [...] Fall Prevention and Pain Management. Patient and/or sales representative meats Verbalizes understanding. Will continue to monitor. VSS, [...] please page the Neurosurgery call pager at [phone], and request the resident caring for Dr. Kiser's patients. Guillermina Victor MD * Jahaira Brown NP - 07/02/2021 12:04 PM CDT [facility] Daily Progress Note Admit: [...] use??and alcohol alcohol use??who was transferred to [facility] 06/11 from OSH after being found to have trace traumatic SAH andIVH following??a recent??fall.??The patient had been reaching overhead for something in the closet and lost his balance, falling and striking his head. There was loss of consciousness. Of note, he had an unwitnessed fall the week prior. He was first taken to [facility] via EMS on 06/08 after sustaining fall with LOC at home. At [place] the initial head??CT??was??negative and he was admittedovernight 06/08-06/09 for further evaluation and treatment of possible syncopal episodes. There was reported involuntary movements and nystagmus for which he was loaded with Keppra and planned for EEG, the course of this is unclear. He had reportedly been started on CIWA protocol??with librium.??An MRIlater revealed SAH, IVH, small IPH for which he was ultimately transferred to [facility] as a neurosurgeryprimary patient the evening of 06/11. Overnight 06/11-06/12 the patient was not following commands and was somnolent, worsening following??Ativan administration for high CIWA score. [facility]the morning of 06/12??for closer [...] 94 ICU for closer monitoring. Interval History: No [...] Persaud NP, Last Rate: 50 mL/hr at 07/02/21 0240, 50 mL/hr at 07/02/21 0240 ??? docusate (COLACE) 10 mg/mL oral liquid 100 mg, 100 mg, feeding tube, Daily, Sada العلي NP, 100 mg at 07/01/21 0827 ??? fluticasone furoate-vilanteroL (BREO ELLIPTA) 100-25 mcg/dose inhaler 1 puff, 1 puff, inhalation, Daily (RT), Jahaira Brown NP, 1 puff at 07/02/21 0859 ??? heparin 5,000 unit/mL injection 5,000 Units, 5,000 Units, subcutaneous, Q8H MONET, Cassie Trent NP, 5,000 Units at 07/02/21 0542 ??? metoprolol tartrate (LOPRESSOR) immediate release tablet 50 mg, 50 mg, feeding tube, BID, Jair Jay MD, 50 mg at 07/01/212051 ??? miconazole (SECURA THICK) 2 % cream, , topical, BID, Andreia Ellis MD, Given at 07/01/212051 ??? bqkuhgnu-kyc-bguacxy gluconate (CENTRUM) 0.6 mg iron/mL oral liquid [...] mg, 100 mg, feeding tube, Nightly, Ciarra Jama, FISH SMOKER,100 mg at 07/01/212051 Diet: Dietary Orders (From admission, onward) Start Ordered 06/30/21 1618 Diet, Tube Feeding With Tray Jevity 1.5 veronica (dobhoff in stomach); 80; 12; 4227-0989; 60; Water; Every 4 hours Diet effective now Question Answer Comment Tube Feeding Formula: Jevity 1.5 veronica dobhoff in stomach Night Continuous (mL/hour): 80 Duration (hr): 12 Tube Feeding Cyclic (start / stop time): 1852-9959 Tube Feeding Flush (mL): 60 Flush Type: Water Flush Frequency: Every 4 hours 06/30/21 1617 06/28/21 1217 Oral Nutrition Supplements Select Supplement: Ensure Pudding - Abby All Meals Question: Select Supplement: Answer: Ensure Pudding - Abby 06/28/21 1216 06/28/21 1215 Adult Diet Restricted; Dysphagia 1 (pureed); No Liquid Diet effective now Question Answer Comment ([facility]) Diet type Restricted Modified Consistency: Dysphagia 1 [...] Plan: Active Problems: Hypercholesterolemia Hypertension Atrial fibrillation ([facility]) ([facility]) Chronic systolic heart failure ([facility]) ([facility]) TBI (traumatic brain injury) ([facility]) ([facility]) SAH (subarachnoid hemorrhage) ([facility]) ([facility]) Encephalopathy Acute delirium Scrotal abscess Closed fracture of trochanter of left femur ([facility]) ([facility]) Dysphagia Orthostatic hypotension Acute respiratory failure ([facility]) #Traumatic brain injury with SAH and intraventricular [...] gtt 06/13-06/14; will need outpatient f/u with Hand Flatwork Finisher - Continue metoprolol 50 mg BID for [...] - Continue DDI diet, NO LIQUIDS - bindery operator following - Calorie count ?? #Left trochanteric [...] patient on 07/02/21 in conjunction with the FISH SMOKER. I agree with evaluation, assessment and plan [...] will monitor Deacon Shannon Gardner MD Adjunct Glassblower Division of Acute and Critical Care Surgery * Yolanda Jackson, RN - 07/02/2021 4:09 AM CDT Assessment [...] in flowsheets. Plan of care discussed with patient/sales representative meats, including as it relates to Active Problems: [...] Fall Prevention and Pain Management. Patient and/or sales representative meats Verbalizes understanding. Will continue to monitor. VSS, neuro checks (sleep hygiene). Fall precautions in place. Will continue to monitor. * Jahaira Brown NP - 07/01/2021 1:37 PM CDT [facility] Daily Progress Note Admit: [...] use??and alcohol alcohol use??who was transferred to [facility] 06/11 from O[facility] after being found to have trace traumatic SAH andIVH following??a recent??fall.??The patient had been reaching overhead for something in the closet and lost his balance, falling and striking his head. There was loss of consciousness. Of note, he had an unwitnessed fall the week prior. He was first taken to [facility] via EMS on 06/08 after sustaining fall with LOC at home. At [place] the initial head??CT??was??negative and he was admittedovernight 06/08-06/09 for further evaluation and treatment of possible syncopal episodes. There was reported involuntary movements and nystagmus for which he was loaded with Keppra and planned for EEG, the course of this is unclear. He had reportedly been started on CIWA protocol??with librium.??An MRIlater revealed SAH, IVH, small IPH for which he was ultimately transferred to [facility] as a neurosurgeryprimary patient the evening of 06/11. Overnight 06/11-06/12 the patient was not following commands and was somnolent, worsening following??Ativan administration for high CIWA score. [facility]??the morning of 06/12??for closer [...] 94 ICU for closer monitoring. Interval History: SBFT [...] 650 mg, feeding tube, Q4H PRN, Cassie Trent, GARIMA, 650 mg at 06/18/21 0035 ??? albuterol 2.5 mg/0.5 mL nebulizer solution 1.25 mg, 1.25 mg, nebulization, Q6H PRN (RT), Jair Jay MD ??? dextrose 5% and Lactated Ringer's infusion, 50 mL/hr, intravenous, Continuous, Elizabeth Persaud NP, Last Rate: 50 mL/hr at 06/30/211753, 50 mL/hr at 06/30/211753 ??? docusate (COLACE) 10 mg/mL oral liquid 100 mg, 100 mg, feeding tube, Daily, Sada العلي NP, 100 mg at 07/01/21826 ??? fluticasone furoate-vilanteroL [...] Ellis MD, Given at 07/01/21 0837 ??? ebqudbtg-fps-pcgodvw gluconate (CENTRUM) 0.6 mg iron/mL oral liquid 15 mL, 15 mL, feeding tube,Daily, Cassie Trent NP, 15 mL at 07/01/21826 ??? pantoprazole (PROTONIX) 4 mg/mL injection 40 mg, 40 mg, intravenous, Daily, Mily Cuevas NP, 40 mg at 07/01/21826 ??? pravastatin (PRAVACHOL) tablet 40 mg, 40 mg, feeding tube, Daily, Cassie Trent, GARIMA, 40mg at 07/01/21 08 ??? ramelteon (ROZEREM) tablet 8 mg, 8 mg, feeding tube, Nightly, Tamiko Ray, GARIMA, 8 mg at 06/30/21 1754 ??? senna 1.76 mg/mL syrup 8.8 mg, 8.8 mg, feeding tube, BID, Sada العلي, GARIMA, 8.8 mg at07/01/21 08 ??? sodium chloride 0.9% flush 0.5-20 mL, 0.5-20 mL, intra-catheter, Q8H MONET, Belinda Shaffer MD PhD, 10 mL at 07/01/21 0401 ??? sodium chloride 0.9% flush 0.5-20 mL, 0.5-20 mL, intra-catheter, PRN, Belinda Shaffer MD PhD, 10 mL at 06/25/21 0745 ??? terazosin (HYTRIN) capsule 10 mg, 10 mg, feeding tube, Nightly, Ciarra Jama NP, 10 mg at 06/30/21 2101 ??? thiamine (VITAMIN B1) tablet 100 mg, 100 mg, feeding tube, Daily, Jair Jay MD, 100 mg at 07/01/21 08 ??? traZODone (DESYREL) tablet 100 mg, 100 mg, feeding tube, Nightly, Ciarra Jama NP,100 mg at 06/30/21 2100 Diet: Dietary Orders (From admission, onward) Start Ordered 06/30/21 1618 Diet, Tube Feeding With Tray Jevity 1.5 veronica (dobhoff in stomach); 80; 12; 9193-7099; 60; Water; Every 4 hours Diet effective now Question Answer Comment Tube Feeding Formula: Jevity 1.5 veronica dobhoff in stomach Night Continuous (mL/hour): 80 Duration (hr): 12 Tube Feeding Cyclic (start / stop time): 6850-9918 Tube Feeding Flush (mL): 60 Flush Type: Water Flush Frequency: Every 4 hours 06/30/21 1617 06/28/21 1217 Oral Nutrition Supplements Select Supplement: Ensure Pudding - Abby All Meals Question: Select Supplement: Answer: Ensure Pudding - Abby 06/28/21 1216 06/28/21 1215 Adult Diet Restricted; Dysphagia 1 (pureed); No Liquid Diet effective now Question Answer Comment ([facility]) Diet type Restricted Modified Consistency: Dysphagia 1 [...] Plan: Active Problems: Hypercholesterolemia Hypertension Atrial fibrillation ([facility]) ([facility]) Chronic systolic heart failure ([facility]) ([facility]) TBI (traumatic brain injury) ([facility]) ([facility]) SAH (subarachnoid hemorrhage) ([facility]) ([facility]) Encephalopathy Acute delirium Scrotal abscess Closed fracture of trochanter of left femur ([facility]) ([facility]) Dysphagia Orthostatic hypotension Acute respiratory failure ([facility]) #Traumatic brain injury with SAH and intraventricular [...] gtt 06/13-06/14; will need outpatient f/u with Hand Flatwork Finisher - Continue metoprolol 50 mg BID for [...] completed 06/29 - SBFT placed 06/30 - bindery operator following - Tube feeds at goal ?? [...] patient on 07/01/2021 in conjunction with the FISH SMOKER. I agree with evaluation, assessment and plan [...] at goal Deacon Shannon Gardner MD Adjunct Glassblower Division of Acute and Critical Care Surgery * Angelica Juarez, ASHLEY - 06/30/2021 2:52 PM CDT Nutrition Tube [...] use??and alcohol alcohol use??who was transferred to [facility] 06/11 from OSH after being found [...] of Weight Used for Estimated Protein : [place] Protein Needs Based on g/k.2 Total Protein Estimated Needs (gm): 93.6 Kcal/kg Type of Weight Used for Estimated Kcals: Current Kcal/k Total Kcal/kg Estimated Needs : 2144 Height: 180.3 cm (5' 10.98 ) Weight: 90 kg (198 lb 6.6 oz) Weight Change: 4.20 kg (9.25 lbs) Medications: Scheduled Meds: docusate, 100 mg, feeding tube, Daily heparin, 5,000 Units, subcutaneous, Q8H [facility] metoprolol tartrate, 50 mg, feeding tube, BID miconazole, , topical, BID ghgrivta-tcz-pjsniul gluconate, 15 mL, feeding tube, Daily pantoprazole, [...] 50 mL/hr, Last Rate: 50 mL/hr (06/30/21 06) Lab Review: Sodium Date Value Ref Range [...] Liquid Diet effective now Question Answer Comment ([facility]) Diet type Restricted Modified Consistency: Dysphagia 1 [...] today due to pt's mental status. Per FISH SMOKER, this might be pt's new normal. Consider NG tube placement for now, but consider PEG tube if this will be longterm picture. Noted 1 healing wound documented on [...] 1.5 @ 80 ml/hr x12 hours overnight (8966-1334) to provide 1440 veronica (67% estimated nutrition [...] Stool patterns Angelica Juarez MS RD LD #[phone] * Elizabeth Persaud NP - 06/30/2021 11:51 AM CDT [facility] Daily Progress Note Admit: [...] use??and alcohol alcohol use??who was transferred to [facility] 06/11 from OSH after being found to have trace traumatic SAH andIVH following??a recent??fall.??The patient had been reaching overhead for something in the closet and lost his balance, falling and striking his head. There was loss of consciousness. Of note, he had an unwitnessed fall the week prior. He was first taken to [facility] via EMS on 06/08 after sustaining fall with LOC at home. At [facility] the initial head??CT??was??negative and he was admittedovernight 06/08-06/09 for further evaluation and treatment of possible syncopal episodes. There was reported involuntary movements and nystagmus for which he was loaded with Keppra and planned for EEG, the course of this is unclear. He had reportedly been started on CIWA protocol??with librium.??An MRIlater revealed SAH, IVH, small IPH for which he was ultimately transferred to [facility] as a neurosurgeryprimary patient the evening of 06/11. Overnight 06/11-06/12 the patient was not following commands and was somnolent, worsening following??Ativan administration for high CI[facility] score. [facility] morning of 06[facility]12??for closer observation. NSGY consulted Medicine servicefor assistance with syncope work-up and management of multiple comorbidities. The patient had ongoing somnolence and lethargy throughout the??morning,??and on??Medicine consult's evaluation, there was concern for??being at risk for airway compromise with his impaired level of consciousness. A nasaltrumpet was placed, and the patient was then transferred to [facility] ICU for closer monitoring. Interval History: 06/30: [...] Ringer's infusion, 50 mL/hr, intravenous, Continuous, Elizabeth Pesraud NP, Last Rate: 50 mL/hr at 06/30/21 0621, 50 mL/hr at 06/30/21 06 ??? docusate (COLACE) 10 mg/mL oral liquid 100 mg, 100 mg, feeding tube, Daily, Sada العلي NP, 100 mg at 06/29/21 0946 ??? heparin 5,000 unit/mL injection 5,000 Units, 5,000 Units, subcutaneous, Q8H MONET, Cassie rTent NP, 5,000 Units at 06/30/21 0615 ??? metoprolol tartrate (LOPRESSOR) immediate release tablet 50 mg, 50 mg, feeding tube, BID, Jair Jay MD, 50 mg at 06/30/21927 ??? miconazole (SECURA THICK) 2 % cream, , topical, BID, Andreia Ellis MD, Given at 06/30/21 0931 ??? anikzqyz-tub-zbtytft gluconate (CENTRUM) 0.6 mg iron/mL oral liquid 15 mL, 15 mL, feeding tube,Daily, Cassie Trent NP, 15 mL at 06/30/21927 ??? pantoprazole (PROTONIX) 4 mg/mL injection 40 mg, 40 mg, intravenous, Daily, Mily Cuevas NP, 40 mg at 06/30/2113 ??? pravastatin (PRAVACHOL) tablet 40 mg, 40 mg, feeding tube, Daily, Cassie Trent NP, 40mg at 06/30/21927 ??? ramelteon (ROZEREM) tablet 8 mg, 8 mg, feeding tube, Nightly, Tamiko Ray NP, 8 mg at 06/29/211744 ??? senna 1.76 mg/mL syrup 8.8 mg, 8.8 mg, feeding tube, BID, Sada العلي NP, 8.8 mg at06/29/212114 ??? sodium chloride 0.9% [...] Daily, Jair Jay MD, 100 mg at 06/30/21926 ??? traZODone (DESYREL) tablet 100 mg, 100 [...] Liquid Diet effective now Question Answer Comment ([facility]) Diet type Restricted Modified Consistency: Dysphagia 1 [...] Plan: Active Problems: Hypercholesterolemia Hypertension Atrial fibrillation ([facility]) ([facility]) Chronic systolic heart failure ([facility]) ([facility]) TBI (traumatic brain injury) ([facility]) ([facility]) SAH (subarachnoid hemorrhage) ([facility]) ([facility]) Encephalopathy Acute delirium Scrotal abscess Closed fracture of trochanter of left femur ([facility]) ([facility]) Dysphagia Orthostatic hypotension Acute respiratory failure ([facility]) #Traumatic brain injury with SAH and intraventricular hemorrhage - Admitted to [facility] - Brain injury consult - Neuro checks q4h - PT, OT, SPRING SALVAGE WORKER consults - PM&R consult - Will need exit head CT prior to discharge per NS ?? #Encephalopathy - Etiology seems to be [...] gtt 06/13-06/14; will need outpatient f/u with Hand Flatwork Finisher - Continue metoprolol 50 mg BID for [...] to continue to follow. Karlee Mccann LCSW [facility] Social Work [phone] For emergency needs from 4:31p.m. - 7:59a.m., please call the ED Clinical Applications Manager . For weekend needs from 8:00a.m. - [...] not assigned to this patient, please call [phone]. 06/30/21 1016 General Session Type Treatment OT [...] Cognitive Status Impaired (Pt scored 04/29 on [place]) Arousal/Alertness Alert;Appropriate responses to stimuli Attention [...] during this session as pt participated in [place] screening.Pt tolerated sitting EOB for 5 [...] transfer 06/29/21 07/06/21 -- Goal Details: To [facility] with Mod A Problem: OT Misc Start [...] one step commands with no verbal cues Christine Oliveira, VIJI reviewed by Vane Baker 06/30/21 Cosigned by [...] use??and alcohol alcohol use??who was transferred to [facility] 06/11 from OSH after being found [...] of Weight Used for Estimated Protein : [place] Protein Needs Based on g/k.2 Total Protein Estimated Needs (gm): 93.6 Kcal/kg Type of Weight Used for Estimated Kcals: Current Kcal/k Total Kcal/kg Estimated Needs : 5 Height: 180.3 cm (5 10.98 ) Weight: 90 kg (198 lb 6.6 oz) Weight Change: 4.20 kg (9.25 lbs) Medications: Scheduled Meds: docusate, 100 mg, feeding tube, Daily heparin, 5,000 Units, subcutaneous, Q8H MONET metoprolol tartrate, 50 mg, feeding tube, BID metroNIDAZOLE, 500 mg, feeding tube, Q8H OM[facility] miconazole, , topical, BID ssyxblpy-aul-afsxeib gluconate, 15 mL, feeding tube, Daily pantoprazole, [...] Additional Assessments: No Last BM Date: 06/28/21 Lwe Scale Score: 14 Skin Integrity: Redness Dietary Orders (From admission, onward) Start Ordered 06/28/21 1217 Oral Nutrition Supplements Select Supplement: Ensure Pudding - Abby All Meals Question: Select Supplement: Answer: Ensure Pudding - Abby 06/28/21 1216 06/28/21 1215 Adult Diet Restricted; Dysphagia 1 (pureed); No Liquid Diet effective now Question Answer Comment ([facility]) Diet type Restricted Modified Consistency: Dysphagia 1 [...] today due to pt's mental status. Per FISH SMOKER, this might be pt's new normal. Consider NG tube placement for now, but consider PEG tube if this will be local intermodal truck driver picture. Noted 1 healing wound documented on [...] Jevity1.5 @ 80 ml/hr x12 hours overnight (6162-8470) to provide 1440 veronica (67% estimated nutrition [...] Stool patterns Angelica Juarez, MS RD LD #[phone] * Elizabeth Persaud, GARIMA - 06/29/2021 9:41 AM CDT [facility] Daily Progress Note Admit: [...] use??and alcohol alcohol use??who was transferred to [facility] 06/11 from OSH after being found to have trace traumatic SAH andIVH following??a recent??fall.??The patient had been reaching overhead for something in the closet and lost his balance, falling and striking his head. There was loss of consciousness. Of note, he had an unwitnessed fall the week prior. He was first taken to [facility] via EMS on 06/08 after sustaining fall with LOC at home. At [facility] the initial head??CT??was??negative and he was admittedovernight 06/08-06/09 for further evaluation and treatment of possible syncopal episodes. There was reported involuntary movements and nystagmus for which he was loaded with Keppra and planned for EEG, the course of this is unclear. He had reportedly been started on CIWA protocol??with librium.??An MRIlater revealed SAH, IVH, small IPH for which he was ultimately transferred to [facility] as a neurosurgeryprimary patient the evening of 06/11. Overnight 06/11-06/12 the patient was not following commands and was somnolent, worsening following??Ativan administration for high CIWA score. [facility] morning of 06/12??for closer observation. NSGY consulted Medicine servicefor assistance with syncope work-up and management of multiple comorbidities. The patient had ongoing somnolence and lethargy throughout the??morning,??and on??Medicine consult's evaluation, there was concern for??being at risk for airway compromise with his impaired level of consciousness. A nasaltrumpet was placed, and the patient was then transferred to [facility] ICU for closer monitoring. Interval History: 06/29: [...] BID, Jair Jay MD, 50 mg at 06/29/2146 ??? metroNIDAZOLE (FLAGYL) tablet 500 mg, 500 mg, feeding tube, Q8H MONET, Tamiko Ray NP, 500mg at 06/29/21 05 ??? miconazole (SECURA THICK) 2 % cream, , topical, BID, Andreia Ellis MD, Given at 06/29/2146 ??? arpbvwiu-fgp-marqqzl gluconate (CENTRUM) 0.6 mg iron/mL oral liquid 15 mL, 15 mL, feeding tube,Daily, Cassie Trent NP, 15 mL at 06/29/2145 ??? pantoprazole (PROTONIX) 4 mg/mL injection 40 mg, 40 mg, intravenous, Daily, Mily Cuevas NP, 40 mg at 06/29/2145 ??? pravastatin (PRAVACHOL) tablet 40 mg, 40 mg, feeding tube, Daily, Cassie Trent NP, 40mg at 06/29/2146 ??? ramelteon (ROZEREM) tablet 8 mg, 8 mg, feeding tube, Nightly, Tamiko Ray NP, 8 mg at 06/28/21 1741 ??? senna [...] Liquid Diet effective now Question Answer Comment ([facility]) Diet type Restricted Modified Consistency: Dysphagia 1 [...] (CMS/HCC) (HCC) TBI (traumatic brain injury) (CMS/HCC) ([facility]) SAH (subarachnoid hemorrhage) ([facility]) ([facility]) Encephalopathy Acute delirium Scrotal abscess Closed fracture of trochanter of left femur ([facility]) ([facility]) Dysphagia Orthostatic hypotension Acute respiratory failure ([facility]) #Traumatic brain injury with SAH and intraventricular hemorrhage - Admitted to NS - Brain injury consult - Neuro checks q4h - PT, OT, SPRING SALVAGE WORKER consults - PM&R consult - Will need [...] gtt 06/13-06/14; will need outpatient f/u with Hand Flatwork Finisher - Continue metoprolol 50 mg BID for [...] transfer 06/29/21 07/06/21 -- Goal Details: To [facility] with Mod A Problem: OT Misc Start [...] not assigned to this patient, please call [phone]. Christine Oliveira, OTS reviewed by Vane Baker 06/29/21 Cosigned by Vane Baker OT at 06/29/2021 2:39 PM CDT * Bess Mcguire MD - 06/28/2021 4:27 PM CDT [facility] Daily Progress Note Admit: [...] use??and alcohol alcohol use??who was transferred to [facility] 06/11 from OS after being found to have trace traumatic SAH and IVH following??a recent??fall.??He was first taken to [facility] via EMS on 06/08 after sustaining fall with LOC at home. At [facility] the initial head??CT??was??negative and he was admitted [...] for which he was ultimately transferred to [facility] as a neurosurgery primary patient the evening [...] consciousness. A nasal trumpet was placed, POCT??ABG 7.43/ and he was then transferred to 94 ICU for closer monitoring.?? [facility] records received and reviewed. Summarized as follows [...] on PM of 06/29 (susceptibilities sent to [place]).??Extubated on 06/18 and placed on high humidity [...] tube, Q8H MONET miconazole, , topical, BID afsurmly-eyk-tgtqokb gluconate, 15 mL, feeding tube, Daily pantoprazole, 40 mg, intravenous, Daily pravastatin, 40 mg, feeding tube, Daily ramelteon, 8 mg, feeding tube, Nightly senna, 8.8 mg, feeding tube, BID sodium chloride 0.9%, 0.5-20 mL, intra-catheter, Q8H MONET sodium chloride 0.9%, 0.5-20 mL, intra-catheter, Q8H MNOET sulfamethoxazole-trimethoprim, 320 mg of trimethoprim, feeding tube, [...] Liquid Diet effective now Question Answer Comment ([facility]) Diet type Restricted Modified Consistency: Dysphagia 1 [...] 4 hour neuro exams - PT, OT, SPRING SALVAGE WORKER consults ?? #Encephalopathy - Etiology seems to [...] gtt 06/13-06/14; will need outpatient f/u with Hand Flatwork Finisher - continue metoprolol 50 mg BID for [...] back yet - f/u susceptibilities (sent to [place]) #HTN - holding home lisinopril 40 mg [...] of Acute and Critical Care Surgery * Soraida Landisne, PT - 06/28/2021 1:08 PM CDT Physical [...] treatment team and contact the PT or TRAVELING BUYER currently assigned to this patient. If a physical therapy clinician is not assigned to this patient, please call [phone]. Multi-Disciplinary Problems (from Physical Therapy) Active Problems [...] continue supportive care with PT, OT and SPRING SALVAGE WORKER. Neuro checks are q4 hours with sleep [...] to 75%. He is on a beta edumnd as above while maintaining clinical euvolemia. We [...] Chavarria MD Neurocritical Care Attending * Tamiko Ray NP - 06/28/2021 7:15 AM CDT Neuro Critical Care Progress Note Dx: TBI with trace tSAH and IVH, Encephalopathy HPI: 71M HTN/HL, a-fib on Eliquis, HFrEF (45-50% EF 2020), COPD not on home O2, legally blind, and hearing loss admitted with trace tSAH and IVH following a fall. Admitted OSH with altered LOC. Initial CT neg but subsequent MRI with tr SAH/IVH. Tx to [facility] NSGY service 06/11 where has remained encephalopathic. [...] day prior) LABS Recent Labs Lab Units 06/27/21214406/26/[id number]/25/21195506/25/210 06/24/211943 SODIUM mmol/L 133* 135 135 < > [...] interval not displayed. Recent Labs Lab Units 06/27/21214406/26/[id number]/25/211955 WBC K/cumm 10.2* 17.4* 6.3 HEMATOCRIT % 33.7* 35.4* 33.5* HEMOGLOBIN g/dL 11.7* 12.4* 11.5* PLATELETS K/cumm 240 227 228 Recent Labs Lab Units 06/24/211943 ALK PHOS [...] dry. NEURO EXAM (of note, patient very [place] & legally blind) Mental Status Awake while [...] q4h + sleep hygiene -- PT, OT, SPRING SALVAGE WORKER consults # Encephalopathy - Improving -- suspect [...] gtt 06/13-06/14; will need outpatient f/u with Hand Flatwork Finisher -- previously on amiodarone, discontinued (not optimal medication for this patient to be continued on local intermodal truck driver) -- continue metoprolol 50 mg BID for [...] at 75 mL/hr while NO liquids per SPRING SALVAGE WORKER on diet (will end after 2L given) [...] back yet -- f/u susceptibilities (sent to [place]) # Leukocytosis -- WBC count now trending [...] CODE STATUS: Full Code Disposition: Transfer to [facility] Trauma floor Cosigned by Mario Chavarria MD [...] JOEL 06/22 JOEL 06/23 Clinical swallow -> SPRING SALVAGE WORKER rec MBS. 06/24 JOEL 06/25 JOEL 06/26 JOEL 06/27 JOEL Objective Physical Exam: not sedated [...] THICK) 2 % cream topical BID ??? jiqdktbb-haj-hzblszf gluconate (CENTRUM) 0.6 mg iron/mL oral liquid [...] found for: TROPONIN PT/OT assessment: PT Recommendation/Plan: Nursing Home Facility OT Recommendation: Inpatient Rehab Facility Assessment/Plan [...] continue to work with PT, OT and SPRING SALVAGE WORKER. Will continue neuro checks q4 hours with [...] collection device. 19. [facility]. He will be lubna-trauma primary [...] ventricular size, small IVH in occipital horns. 3/7: TTSDU, then TTICU for persistently depressed mental [...] ambulation, s/o. 06/20 JOEL 06/21 JOEL 06/22 JOLE 06/23 Clinical swallow -> SPRING SALVAGE WORKER rec MBS. 06/24 JOEL 06/25 JOEL Objective [...] 500 mg feeding tube Q8H MONET ??? yaodfqun-mkz-jpxjmgl gluconate (CENTRUM) 0.6 mg iron/mL oral liquid [...] found for: TROPONIN PT/OT assessment: PT Recommendation/Plan: Nursing Home Facility OT Recommendation: Inpatient Rehab Facility Assessment/Plan [...] bold with questions) Vascular Note created by Claernce Soto MD PhD on 06/27/2021 at 7:01 AM. Cosigned by Seth Kiser MD at 07/02/2021 8:54 AM CDT * Tamiko Ray NP - 06/27/2021 6:32 AM CDT Neuro Critical Care Progress Note Dx: TBI with trace tSAH and IVH, Encephalopathy HPI: 71M HTN/HL, a-fib on Eliquis, HFrEF (45-50% EF 2020), COPD not on home O2, legally blind, and hearing loss admitted with trace tSAH and IVH following a fall. Admitted OSH with altered LOC. Initial CT neg but subsequent MRI with tr SAH/IVH. Tx to [facility] NSGY service 06/11 where has remained encephalopathic. Medicine consulted for encephalopathy and felt airway was threatened, hence transfer to ICU06/12. Interval Events: -- remains stable off face tent and on RA, no suctioning requirements -- passed MBS for dysphagia 1 diet with NO liquids -- MRI L hip is pending -- WBC count increased on AM labs from 6 to , patient remains afebrile -- awaiting [...] 1,325 mL LABS Recent Labs Lab Units 06/26/21 2347 06/25/21 1956 06/25/21 0200 06/24/21 1944 SODIUM mmol/L 135 135 135 133* POTASSIUM [...] -- -- 4.0 Recent Labs Lab Units 06/26/21 2347 06/25/21195506/24/211943 WBC K/cumm 17.4* 6.3 6.1 HEMATOCRIT % 35.4* 33.5* 34.5* HEMOGLOBIN g/dL 12.4* 11.5* 11.8* PLATELETS K/cumm 227 228 252 Recent Labs Lab Units 06/24/21 194 ALK PHOS Units/L 88 BILIRUBIN TOTAL mg/dL [...] dry. NEURO EXAM (of note, patient very [place]) Mental Status Awake sitting in chair, poor [...] q4h + sleep hygiene -- PT, OT, SPRING SALVAGE WORKER consults # Encephalopathy - Improving -- suspect [...] gtt 06/13-06/14; will need outpatient f/u with Hand Flatwork Finisher -- previously on amiodarone, discontinued (not optimal medication for this patient to be continued on local intermodal truck driver) -- continue metoprolol 50 mg BID for [...] back yet -- f/u susceptibilities (sent to [place]) # Leukocytosis -- WBC count overnight increased [...] CODE STATUS: Full Code Disposition: Transfer to [facility] Trauma floor Cosigned by Mario Chavarria MD [...] Will continue to have PT, OT and SPRING SALVAGE WORKER evaluate and treat. Neuro checks will remain [...] night. Will continue his ramelteon 8mg nightly [id number] to establish a normal sleep/wake cycle and [...] 135 mEq/L. Plan for MBSS today with SPRING SALVAGE WORKER. His last bowel movement was on 06/23. [...] treatment team and contact the PT or TRAVELING BUYER currently assigned to this patient. If a physical therapy clinician is not assigned to this patient, please call [phone]. 06/26/21 1059 PT Last Visit Session Type Treatment PT [...] this the discharge summary Recommendation/Plan PT Recommendation/Plan Nursing Home Facility PT Frequency 3-5x/wk PT - Next [...] subsequent MRI with tr SAH/IVH. Tx to [facility] NSGY service 06/11 where has remained encephalopathic. [...] 970 mL LABS Recent Labs Lab Units 06/25/21195506/25/21 0200 06/24/21194306/23/21 2150 SODIUM mmol/L 135 135 133* 137 [...] 228 252 227 Recent Labs Lab Units 06/24/211943 ALK PHOS [...] dry. NEURO EXAM (of note, patient very [place]) Mental Status Eyes open to verbal call, [...] q4h + sleep hygiene -- PT, OT, SPRING SALVAGE WORKER consults # Encephalopathy - Improving -- suspect [...] gtt 06/13-06/14; will need outpatient f/u with Hand Flatwork Finisher -- previously on amiodarone, discontinued (not optimal medication for this patient to be continued on local intermodal truck driver) -- continue metoprolol 50 mg BID for [...] continue Jevity 1.5 at 60 mL/hr -- SPRING SALVAGE WORKER planning for MBS today -- start bowel [...] abx treatment) -- f/u susceptibilities (sent to [place]), will count clindamycin as treatment days if [...] Code Disposition: Transfer to [facility] floor Cosigned by Mario Chavarria MD [...] JOEL 06/22 JOEL 06/23 Clinical swallow -> SPRING SALVAGE WORKER rec MBS. 06/24 JOEL 06/25 JOEL Objective [...] 500 mg feeding tube Q8H MONET ??? diddegrm-zrh-awnrdlu gluconate (CENTRUM) 0.6 mg iron/mL oral liquid [...] found for: TROPONIN PT/OT assessment: PT Recommendation/Plan: Nursing Home Facility OT Recommendation: Inpatient Rehab Facility Assessment/Plan [...] sustained his neurologic exam. PT, OT and SPRING SALVAGE WORKER will continue to evaluate and treat. We [...] and continue to monitor his BMP daily. SPRING SALVAGE WORKER is planning on MBSS early this week. [...] subsequent MRI with tr SAH/IVH. Tx to [facility] NSGY service 06/11 where has remained encephalopathic. [...] unmeasured urine LABS Recent Labs Lab Units 06/25/2119906/24/21194306/23/21214906/22/21203706/19/21202506/18/212201 SODIUM mmol/L 135 133* 137 138 < [...] 252 227 198 Recent Labs Lab Units 06/24/21194306/18/212201 ALK PHOS Units/L 88 91 BILIRUBIN TOTAL [...] x7 days, seizure precautions -- PT, OT, SPRING SALVAGE WORKER consults # Encephalopathy, improving -- suspect multifactorial [...] slept well overnight -- Sleep hygiene -- ramkayleeneon @ 1800 -- trazodone 100 mg qHS [...] s/p amio gtt 06/13-06/14; f/u with outpatient legislative advocate -- d/c amiodarone today (not optimal medication for this patient to be continued on longterm) -- metoprolol 50 mg BID -- monitor [...] Jevity 1.5 @ 61 w/ FWF -- SPRING SALVAGE WORKER following: planning for MBS Saturday -- increase [...] Flagyl and Bactrim, f/u susceptibilities (sent to [place]). -- Day 8/10 of total antibiotics (will [...] JOEL 06/22 JOEL 06/23 Clinical swallow -> SPRING SALVAGE WORKER rec MBS. 06/24 JOEL Objective Physical Exam: [...] 500 mg feeding tube Q8H MONET ??? pgpvruvo-arj-rpsmejy gluconate (CENTRUM) 0.6 mg iron/mL oral liquid [...] found for: TROPONIN PT/OT assessment: PT Recommendation/Plan: Nursing Home Facility OT Recommendation: Inpatient Rehab Facility Assessment/Plan [...] continue supportive care with PT, OT and SPRING SALVAGE WORKER. Neuro checks are being followed q4 hours [...] will stop his current free water flushes. SPRING SALVAGE WORKER is planning on MBSS early this week. [...] subsequent MRI with tr SAH/IVH. Tx to [facility] NSGY service 06/11 where has remained encephalopathic. [...] unmeasured urine LABS Recent Labs Lab Units 06/23/21 21506/22/21203706/21/21210506/19/21202506/18/21220106/17/21220206/17/21 0817 SODIUM mmol/L 137 138 140 < [...] interval not displayed. Recent Labs Lab Units 06/23/21 2150 06/22/21203706/21/21 2106 WBC K/cumm 6.3 8.1 9.4 HEMATOCRIT % 32.6* 30.5* 36.0* HEMOGLOBIN g/dL 11.0* 10.7* 12.2* PLATELETS K/cumm 227 198 227 Recent Labs Lab Units 06/18/21 2202 ALK PHOS Units/L 91 BILIRUBIN TOTAL mg/dL [...] x7 days, seizure precautions -- PT, OT, SPRING SALVAGE WORKER consults # Encephalopathy, improving -- suspect multifactorial [...] s/p amio gtt 06/13-06/14; f/u with outpatient legislative advocate -- d/c amiodarone today (not optimal medication for this patient to be continued on longterm) -- metoprolol 50 mg BID -- monitor [...] continue home terazosin # Hypernatremia/hyperchloremia, stable -- [id number] ml q6h --> discontinue GI and ENDO Meds: ??? Protonix 40 mg Daily Diet: Diet, Tube Feeding No Tray Jevity 1.5 veronica (NGT); 60; 100; Water; Every 6 hours IV fluids: SLIVF Flushes:discontinue Last BM: 06/23 x1, 06/22 2 --> loose stools # Nutrition/Dysphagia -- Continue Jevity 1.5 @ 61 w/ FWF -- SPRING SALVAGE WORKER following: planning for MBS saturday # Diarrhea [...] Flagyl and Bactrim, f/u susceptibilities (sent to [place]). If susceptibilities are not back on day [...] JOEL 06/22 JOEL 06/23 Clinical swallow -> SPRING SALVAGE WORKER rec MBS. Objective Physical Exam: not sedated, [...] output: I/O last 2 completed shifts: In: 171 [NG/GT:1710] Out: 1924 [Urine:1924] Medications: Scheduled Scheduled Medications Medication Dose Route Frequency ??? heparin 5,000 unit/mL injection 5,000 Units 5,000 Units subcutaneous Q8H MONET ??? metoprolol tartrate (LOPRESSOR) immediate release tablet 50 mg 50 mg feeding tube BID ??? metroNIDAZOLE (FLAGYL) tablet 500 mg 500 mg feeding tube Q8H MONET ??? whirkwfk-lmi-emppppr gluconate (CENTRUM) 0.6 mg iron/mL oral liquid [...] found for: TROPONIN PT/OT assessment: PT Recommendation/Plan: Nursing Home Facility OT Recommendation: Inpatient Rehab Facility Assessment/Plan [...] Will continue supportive care. PT, OT and SPRING SALVAGE WORKER are evaluating and treating. Will continue neuro [...] free water flushes 100 mL q6 hours. SPRING SALVAGE WORKER is following for repeat swallow evaluations. He [...] subsequent MRI with tr SAH/IVH. Tx to [facility] NSGY service 06/11 where has remained encephalopathic. [...] 198 227 163 Recent Labs Lab Units 06/18/212201 ALK PHOS Units/L 91 BILIRUBIN TOTAL mg/dL 0.2 TOTAL PROTEIN g/dL 5.0* ALBUMIN g/dL 2.4* ALT Units/L 12 AST Units/L 18 Recent Labs Lab Units 06/20/21 0812 06/17/21220206/16/21 222 PH ART 7.42 7.45 7.46* PCO2 ART [...] x7 days, seizure precautions -- PT, OT, SPRING SALVAGE WORKER consults # Encephalopathy, improving -- suspect multifactorial [...] s/p amio gtt 06/13-06/14; f/u with outpatient legislative advocate -- d/c amiodarone today (not optimal medication for this patient to be continued on longterm) -- metoprolol 25 mg q6h (home dose [...] continue home terazosin # Hypernatremia/hyperchloremia, stable -- [id number] ml q6h GI and ENDO Meds: ??? Protonix 40 mg Daily Diet: Diet, Tube Feeding No Tray Jevity 1.5 veronica (NGT); 60; 100; Water; Every 6 hours IV fluids: SL IVF Flushes:none Last BM: 06/23 x1, 06/22 2 --> loose stools # Nutrition/Dysphagia -- Continue Jevity 1.5 @ 61 w/ FWF -- SPRING SALVAGE WORKER following: planning for MBS saturday # Diarrhea [...] Flagyl and Bactrim, f/u susceptibilities (sent to [place]) -- Day 3/10 of antibiotics (will count [...] 500 mg feeding tube Q8H MONET ??? rhcppfmx-bmh-vxoaeey gluconate (CENTRUM) 0.6 mg iron/mL oral liquid [...] found for: TROPONIN PT/OT assessment: PT Recommendation/Plan: Nursing Home Facility OT Recommendation: Inpatient Rehab Facility Assessment/Plan [...] 06/23/2021 at 6:53 AM. Cosigned by Seth Kiser MD at 07/02/2021 9:01 AM CDT * [...] treatment team and contact the PT or TRAVELING BUYER currently assigned to this patient. If a physical therapy clinician is not assigned to this patient, please call [phone]. 06/22/21 1422 PT Last Visit Session Type [...] this the discharge summary Recommendation/Plan PT Recommendation/Plan Nursing Home Facility PT Frequency 3-5x/wk PT - Next [...] thought he was playing videogames at an [employer] park (though his TV was on The [...] continue supportive care with PT, OT and SPRING SALVAGE WORKER evaluation and treatment. We are following neuro checks q4 hours with sleep hygiene. 2. Alcohol Withdrawal This has resolved and he is now outside of the window for withdrawal. He only required a few doses of benzodiazepines and a few days of dexmedetomidine gtt early in his ICU course. Last benzodiazepine dose was 06/12. He was treated with high dose thiamien [...] hours today as his sodium has normalized. SPRING SALVAGE WORKER is following for repeat swallow evaluations. He [...] Chavarria MD Neurocritical Care Attending * Tamiko Ray NP - 06/22/2021 7:45 AM CDT Neuro Critical Care Progress Note Dx: TBI with trace tSAH and IVH, Encephalopathy HPI: 71M HTN/HL, a-fib on Eliquis, HFrEF (45-50% EF 2020), COPD not on home O2, legally blind, and hearing loss admitted with trace tSAH and IVH following a fall. Admitted OSH with altered LOC. Initial CT neg but subsequent MRI with tr SAH/IVH. Tx to [facility] NSGY service 06/11 where has remained encephalopathic. [...] 775 ml LABS Recent Labs Lab Units 06/21/21210506/20/21212406/19/21202506/18/21220106/17/21220206/17/21 0817 SODIUM mmol/L 140 143 144 148* 147* 144 POTASSIUM PLASMA mmol/L 4.3 3.6 4.4 3.4 4.3 4.3 CHLORIDE mmol/L 102 110 107 114* 110 110 CO2 mmol/L 29 28 30 27 31 30 ANIONGAP mmol/L 9 5 7 7 6 4 GLUCOSE mg/dL 113 110 133 115 152 150 BUN SERUM mg/dL 14 12 14 17 CREATININE mg/dL 0.87 0.70* 0.86 0.70* [...] AST Units/L 18 Recent Labs Lab Units 06/20/2181106/17/21220206/16/21 2224 PH ART 7.42 7.45 7.46* PCO2 [...] x7 days, seizure precautions -- PT, OT, SPRING SALVAGE WORKER consults # Encephalopathy, improving -- suspect multifactorial [...] s/p amio gtt 06/13-06/14; f/u with outpatient legislative advocate -- d/c amiodarone today (not optimal medication for this patient to be continued on longterm) -- metoprolol 25 mg q6h (home dose [...] Jevity 1.5 @ 61 w/ FWF -- SPRING SALVAGE WORKER following: Re-evaluated today at bedside, pt is [...] Flagyl and Bactrim, f/u susceptibilities (sent to [place]) -- Day 3/10 of antibiotics (will count [...] In: 2454 [I.V.:20; NG/GT:2325; IV Piggyback:110] Out: 1919 [Urine:1770; Emesis/NG output:150] Medications: Scheduled Scheduled Medications [...] 500 mg feeding tube Q8H MONET ??? bycfbduo-wjy-mdwykvg gluconate (CENTRUM) 0.6 mg iron/mL oral liquid [...] found for: TROPONIN PT/OT assessment: PT Recommendation/Plan: Nursing Home Facility OT Recommendation: Inpatient Rehab Facility Assessment/Plan [...] 500 mg 500 mg feeding tube Q8H MNOET ??? rofedwux-psw-ntnoqhq gluconate (CENTRUM) 0.6 mg iron/mL oral liquid [...] found for: TROPONIN PT/OT assessment: PT Recommendation/Plan: Nursing Home Facility OT Recommendation: Inpatient Rehab Facility Assessment/Plan [...] 06/22/2021 2:43 PM CDT * Tamiko Ray, FISH SMOKER - 06/21/2021 6:03 AM CDT Neuro Critical Care Progress Note Dx: TBI with trace tSAH and IVH, Encephalopathy HPI: 71M HTN/HL, a-fib on Eliquis, HFrEF (45-50% EF 2020), COPD not on home O2, legally blind, and hearing loss admitted with trace tSAH and IVH following a fall. Admitted OSH with altered LOC. Initial CT neg but subsequent MRI with tr SAH/IVH. Tx to [facility] NSGY service 06/11 where has remained encephalopathic. Medicine consulted for encephalopathy and felt airway was threatened, hence transfer to ICU06/12. Interval Events: -- Discontinued and started Flagyl + bactrim for bacteroides fragilis, susceptibilities sent to [facility] and pending -- C-diff pending -- Shaved [...] mL LABS Recent Labs Lab Units 06/20/21212406/19/21202506/18/21220106/17/21220206/17/21 0817 SODIUM mmol/L 143 144 148* 147* 144 [...] 18 Recent Labs Lab Units 06/20/21 0812 06/17/21220206/16/21 2224 PH ART 7.42 7.45 7.46* PCO2 [...] x7 days, seizure precautions -- PT, OT, SPRING SALVAGE WORKER consults # Encephalopathy, improving -- suspect multifactorial [...] gtt 06/13-06/14; continue amiodarone; f/u with outpatient legislative advocate -- metoprolol 25 mg q6h (home dose [...] Jevity 1.5 @ 61 w/ FWF -- SPRING SALVAGE WORKER following: Re-evaluated today at bedside, pt is [...] subsequent MRI with tr SAH/IVH. Tx to [facility] NSGY service 06/11 where has remained encephalopathic. [...] 1,825 ml LABS Recent Labs Lab Units 06/19/21202506/18/21220106/17/21220206/17/21 0817 SODIUM mmol/L 144 148* 147* 144 [...] AST Units/L 18 Recent Labs Lab Units 06/17/21 2203 06/16/21 2224 06/15/21 0422 PH ART 7.45 7.46* 7.45 PCO2 [...] x7 days, seizure precautions -- PT, OT, SPRING SALVAGE WORKER consults # Encephalopathy, improving -- suspect multifactorial [...] gtt 06/13-06/14; continue amiodarone; f/u with outpatient legislative advocate -- metoprolol 25 mg q6h (home dose [...] Jevity 1.5 @ 61 w/ FWF -- SPRING SALVAGE WORKER following # Diarrhea -- likely iatrogenic -- [...] mg 25 mg feeding tube Q6H ??? fnoxpdjy-anq-kuaukcq gluconate (CENTRUM) 0.6 mg iron/mL oral liquid [...] found for: TROPONIN PT/OT assessment: PT Recommendation/Plan: Nursing Home Facility OT Recommendation: Inpatient Rehab Facility Assessment/Plan [...] Heron Sun MD MS PGY-3, Orthopaedic Surgery [employer] [facility] P: [phone] * Lindy Landis, PT - 06/19/2021 1:41 PM CDT 06/19/21 1341 General PT Missed Visit Reason MD/RN Hold;Agitated * Wellington Crenshaw, GARIMA - 06/19/2021 7:38 AM CDT Neuro Critical Care Progress Note Dx: Encephalopathy 71M HTN/HL, a-fib on Eliquis, HFrEF (45-50% EF 2020), COPD not on home O2, legally blind, and hearing loss admitted with trace tSAH and IVH following a fall. Admitted OSH with altered LOC. Initial CTneg but subsequent MRI with tr SAH/IVH. Tx to [facility] NSGY service 06/11 where has remained encephalopathic. [...] 1,240 ml LABS Recent Labs Lab Units 06/18/21220106/17/21220206/17/21 0817 SODIUM mmol/L 148* 147* 144 POTASSIUM [...] 25 See Comment Recent Labs Lab Units 06/17/21 2203 06/16/21 2224 06/15/21 0422 PH ART 7.45 7.46* 7.45 PCO2 [...] x7 days, seizure precautions -- PT, OT, SPRING SALVAGE WORKER consults # Encephalopathy, improving -- suspect multifactorial [...] gtt 06/13-06/14; continue amiodarone; f/u with outpatient legislative advocate -- metoprolol 25 mg q6h (home dose [...] for OR CODE STATUS: Full Code Disposition: [facility] Cosigned by Elver Rodriguez MD PhD at [...] mg 25 mg feeding tube Q6H ??? onvdyrcw-tao-qlcfibb gluconate (CENTRUM) 0.6 mg iron/mL oral liquid [...] found for: TROPONIN PT/OT assessment: PT Recommendation/Plan: Nursing Home Facility OT Recommendation: Inpatient Rehab Facility Assessment/Plan [...] plan with the ICU team and other medical/nissan sales consultant staff as documented. Patient Briefly, this [...] subsequent MRI with tr SAH/IVH. Tx to [facility] NSGY service 06/11 where has remained encephalopathic. [...] 1170 mL LABS Recent Labs Lab Units 06/17/21 2203 06/17/21 0817 06/16/21 2135 SODIUM mmol/L 147* 144 149* POTASSIUM PLASMA mmol/L 4.3 4.3 3.0* CHLORIDE mmol/L 110 110 118* CO2 mmol/L 31 30 26 ANIONGAP mmol/L 6 4 5 GLUCOSE mg/dL 152 150 149 BUN SERUM mg/dL 17 17 15 CREATININE mg/dL 0.80 0.79* 0.69* CALCIUM mg/dL 8.8 8.6 6.9* MAGNESIUM mg/dL 2.3 2.7* 1.6 PHOSPHORUS PLASMA mg/dL 3.3 2.9 2.5 Recent Labs Lab Units 06/17/21220206/16/21 2135 06/15/21 2234 06/12/21 1144 06/11/212028 WBC K/cumm 6.6 5.3 7.6 [...] x7 days, seizure precautions -- PT, OT, SPRING SALVAGE WORKER consults # Encephalopathy, improving - suspect multifactorial [...] gtt 06/13-06/14; continue amiodarone; f/u with outpatient legislative advocate -- metoprolol 25 mg q6h (home dose [...] intubated 06/15 -- wean to PSV 10/5/40%, extubate today -- SPO2 goal 88-92%, will [...] output: I/O last 2 completed shifts: In: 2220 [I.V.:30; NG/GT:2090; IV Piggyback:100] Out: 1255 [Urine:1255] Medications: Scheduled [...] mg 25 mg feeding tube Q6H ??? hwyjnjvf-oza-zkjzyim gluconate (CENTRUM) 0.6 mg iron/mL oral liquid [...] found for: TROPONIN PT/OT assessment: PT Recommendation/Plan: Nursing Home Facility OT Recommendation: Inpatient Rehab Facility Assessment/Plan [...] plan with the ICU team and other medical/nissan sales consultant staff as documented. Patient Briefly, this [...] interventions as described above including ventilator management. E MECHANIC * Patricia eFrrer NP - 06/17/2021 6:59 AM CST Neuro Critical Care Progress Note Dx: Encephalopathy 71M HTN/HL, a-fib on Eliquis, HFrEF (45-50% EF 2020), COPD not on home O2, legally blind, and hearing loss admitted with trace tSAH and IVH following a fall. Admitted OSH with altered LOC. Initial CTneg but subsequent MRI with tr SAH/IVH. Tx to [facility] NS[facility] service 06/11 where has remained encephalopathic. [...] 975 mL LABS Recent Labs Lab Units 06/16/21213406/16/21 0902 06/15/212056 SODIUM mmol/L 149* 147* 145 [...] 2.5 3.4 3.7 Recent Labs Lab Units 06/16/21213406/15/21223306/14/21 2138 06/12/21 1144 06/11/212028 WBC K/cumm 5.3 [...] 25 See Comment Recent Labs Lab Units 06/16/21 2224 06/15/21 0422 06/15/21 0112 PH ART 7.46* [...] x7 days, seizure precautions -- PT, OT, SPRING SALVAGE WORKER consults # Encephalopathy - suspect multifactorial with [...] continue amiodarone enteral load; f/u with outpatient legislative advocate -- metoprolol 25 mg q6h (home dose [...] -- intubated 06/15 -- wean to PSV //40%, SPO2 goal 88-92% -- consider extubating tomorrow [...] MD PhD at 06/22/2021 2:10 PM CDT E MECHANIC * Clarence Soto MD PhD - 06/17/2021 6:49 AM CST Neurosurgery Daily Progress Note 06/17/2021 Hospital Course 06/11 Admitted. HCT with stable [...] 12.5 mg 12.5 mg oral Once ??? mwaeivll-tkx-abnbrnf gluconate (CENTRUM) 0.6 mg iron/mL oral liquid [...] eye QID PRN 2 drop at 06/13/21 08 ??? sodium chloride 0.9% flush 0.5-20 mL [...] found for: TROPONIN PT/OT assessment: PT Recommendation/Plan: Nursing Home Facility OT Recommendation: Inpatient Rehab Facility Assessment/Plan [...] Kiser MD at 06/19/2021 10:01 PM CDT E MECHANIC * Elver Rodriguez MD PhD - 06/16/2021 4:57 PM CST Critical Care Attending Note I have seen and examined this patient on the day of service. I have reviewed and confirmed the history, physical exam, laboratory and radiographic data with the house staff, bedside nursing, and nurse practitioners. I have reviewed and discussed my treatment plan with the ICU team and other medical/nissan sales consultant staff as documented. Patient Briefly, this [...] interventions as described above including ventilator management. E MECHANIC * Jazzy Clarke [facility] - 06/16/2021 3:06 PM CST IP Social Work Assessment Patient was admitted on 06/11/21 for Encephalopathy. Information was obtained from patient's Raine because patient is confused. He is also blind and has hearing impairment. Social History: Patient and Raine live together in [place], [place]. Raine said that she and their daughter Latha are the only support that patient has. Additional Information: Raine said that patient has been in fpc facilities many times in the past and that none of them provide rehab. Impressions: Patient was lying in bed at the time of the assessment. Patient was oriented x1. Patient will likely benefit from fpc facility placement at discharge. It is possible that patient may need longterm care in a nursing facility. Based on [...] spoke with Raine about short term and longterm discharge plans. Raine agrees with plan for fpc facility short term and said that if patient is unable to care for himself when he no longer meets fpc facility criteria he will need local intermodal truck driver care in nursing facility because she is [...] Order: No Patient Requests Assistance: No (06/16/21 5715) Assessment: Information Information Obtained From: Spouse Name: Raine Redman Referral Data Referral Source: Self referral Referral Reason: Discharge Planning Prior to Admission Primary Caregiver: Self Support System: Spouse/Significant Other, Children Support system contact info (name, phone, availablity): Raine Redman, ([phone])--available for 24 hour supervision but not total detention Care Services: No Durable Medical Equipment: Walker (wheeled) Living Arrangements: Spouse/significant other Type of Residence: Private residence Steps in home? : Yes, Outside of home, Yes, Inside home Number of steps inside:: 14 steps Number of steps outside:: 2 steps Financial Resource Income: SSD/SSI Payor Source: Medicare advantage Potential Discharge Needs Anticipated discharge level of care: nursing home facility Pt/Family agrees with Anticipated Level of Care: Yes Patient expects to be discharged to:: Other (Comment) (Patient is confused) Behavioral Health Services: No (06/16/21 752) Communication: Communications Important Message from Medicare notice given to patient?: Not Applicable [place] letter given?: Not Applicable Patient choice (Home Health/Hospice) list given to patient/sales representative meats?: Not Applicable Nursing Home Facility list given to patient/sales representative meats?: Yes Fiduciary Responsibility: Patient/Designated decision maker was informed of [facility] fiduciary relationship as necessary (06/16/21 1504) E MECHANIC E MECHANIC * Patricia Ferrer, FISH SMOKER - 06/16/2021 7:16 AM CST Neuro Critical Care Progress Note Dx: Encephalopathy 71M HTN/HL, a-fib on Eliquis, HFrEF (45-50% EF 2020), COPD not on home O2, legally blind, and hearing loss admitted with trace tSAH and IVH following a fall. Admitted OSH with altered LOC. Initial CTneg but subsequent MRI with tr SAH/IVH. Tx to [facility] NSGY service 06/11 where has remained encephalopathic. [...] prior) LABS Recent Labs Lab Units 06/16/21 0902 06/15/21 2057 06/15/21 0800 SODIUM mmol/L 147* 145 147* POTASSIUM [...] Recent Labs Lab Units 06/15/214 06/14/21 2138 06/13/21 2048 06/12/21 1144 06/11/212028 WBC K/cumm 7.6 7.9 6.4 [...] x7 days, seizure precautions -- PT, OT, SPRING SALVAGE WORKER consults # Encephalopathy - suspect multifactorial with [...] continue amiodarone enteral load; f/u with outpatient legislative advocate -- metoprolol 12.5 mg --> 25 mg [...] -- intubated 06/15 -- wean to PSV 10/7.5/40%, SPO2 goal 88-92% -- Peridex BID -- [...] MD PhD at 06/22/2021 2:09 PM CDT E MECHANIC * Clarence Soto MD PhD - 06/16/2021 [...] mg 12.5 mg feeding tube Q6H ??? trizzoxj-xcs-ggvycfp gluconate (CENTRUM) 0.6 mg iron/mL oral liquid [...] found for: TROPONIN PT/OT assessment: PT Recommendation/Plan: Nursing Home Facility OT Recommendation: Inpatient Rehab Facility Assessment/Plan [...] Seth Kiser MD at 06/16/2021 12:11 PM SCALE MECHANIC E MECHANIC E MECHANIC * Elver Rodriguez MD PhD - 06/15/2021 7:59 PM CST Critical Care Attending Note I have seen and examined this patient on the day of service. I have reviewed and confirmed the history, physical exam, laboratory and radiographic data with the house staff, bedside nursing, and nurse practitioners. I have reviewed and discussed my treatment plan with the ICU team and other medical/nissan sales consultant staff as documented. Patient Briefly, this [...] interventions as described above including ventilator management. E MECHANIC * Cielo Moore, OT - 06/15/2021 9:31 AM CST Occupational Therapy 06/15/21 0931 General OT Missed Visit Reason Change in medical status (Intubated) Recommendation/Plan OT Frequency Monitor status OT - Next Appointment 06/19/21 E MECHANIC * Wellington Crenshaw, FISH SMOKER - 06/15/2021 6:55 AM CST Neuro Critical Care Progress Note Dx: Encephalopathy 71M HTN/HL, a-fib on Eliquis, HFrEF (45-50% EF 2020), COPD not on home O2, legally blind, and hearing loss admitted with trace tSAH and IVH following a fall. Admitted OSH with altered LOC. Initial CTneg but subsequent MRI with tr SAH/IVH. Tx to [facility] NSGY service 06/11 where has remained encephalopathic. [...] 1,325 ml LABS Recent Labs Lab Units 06/14/21 2138 06/14/21 0856 06/14/21 0052 SODIUM mmol/L 145 [...] 2.4 3.1 3.0 Recent Labs Lab Units 06/14/21 2138 06/13/21 2048 06/13/21 1257 06/12/21 1144 06/11/212028 WBC K/cumm [...] x7 days, seizure precautions -- PT, OT, SPRING SALVAGE WORKER consults # Encephalopathy - suspect multifactorial with [...] continue amiodarone enteral load; f/u with outpatient legislative advocate -- metoprolol 50 mg q6 held post-intubation [...] MD PhD at 06/22/2021 2:10 PM CDT E MECHANIC * Clarence Soto MD PhD - 06/15/2021 [...] 50 mg 50 mg feedingtube Q6H ??? wqqbdoal-qqv-lpfyodk gluconate (CENTRUM) 0.6 mg iron/mL oral liquid [...] found for: TROPONIN PT/OT assessment: PT Recommendation/Plan: Nursing Home Facility OT Recommendation: Inpatient Rehab Facility Assessment/Plan [...] Seth Kiser MD at 06/15/2021 4:10 PM SCALE MECHANIC E MECHANIC E MECHANIC * Clarissa Taylor - 06/14/2021 11:00 AM CST SW student met with patient to gather information and discuss discharge planning. Patient was shaking head and moaning in pain. Speech was garbled. SW student called patient's spouse Raine Redman and left voice mail message asking her to call SW. E MECHANIC * Ying Thompson MD - 06/14/2021 10:42 AM CST Neuro Critical Care Progress Note Dx: Encephalopathy HPI: 71M HTN/HL, a-fib on Eliquis, HFrEF (45-50% EF 2020), COPD not on home O2, legally blind, hearing loss, Ccy p/w trace tSAH and IVH following a fall. Admitted OSH with altered LOC. Initial CT negbut subsequent MRI with tr SAH/IVH. Tx to [facility] NSGY service 06/11 where has remained encephalopathic. [...] 7 days, seizure precautions -- PT, OT, SPRING SALVAGE WORKER consults # Encephalopathy - suspect multifactorial with [...] daily thereafter) - canfollow-up with his outpatient legislative advocate -- Monitor on tele; goal HR<120 -- [...] now as surveillance for refeeding syndrome -- SPRING SALVAGE WORKER eval for formal swallow (failed 06/13) -- [...] difficult) VTE Prophylaxis Last Venous Doppler: 2019 Right profunda DVT, repeat pending Prophylaxis: SCDs, SQH 5000 u q 8 CODE STATUS: Full Code Disposition: 9400 NNICU Cassie Trent NP I reviewed and confirmed the history, physical exam, laboratory and radiographic data with the house staff as documented above. I reviewed and discussed my treatment plan with the ICU team and other medical/nissan sales consultant staff as documented in the note above. Ying Thompson MD Neurocritical Care Fellow Cosigned by Joce Rodriguez MD PhD at 06/14/2021 5:09 PM SCALE MECHANIC E MECHANIC E MECHANIC * Cassie Trent NP - 06/14/2021 7:47 AM CST Neuro Critical Care Progress Note Dx: Encephalopathy HPI: 71M HTN/HL, a-fib on Eliquis, HFrEF (45-50% EF 2020), COPD not on home O2, legally blind, hearing loss, Ccy p/w trace tSAH and IVH following a fall. Admitted OSH with altered LOC. Initial CT negbut subsequent MRI with tr SAH/IVH. Tx to [facility] NSGY service 06/11 where has remained encephalopathic. [...] interval not displayed. Recent Labs Lab Units 06/13/21204706/13/21 1257 06/13/21 1108 06/12/21 1144 06/11/212028 WBC [...] 7 days, seizure precautions -- PT, OT, SPRING SALVAGE WORKER consults # Encephalopathy - suspect multifactorial with [...] daily thereafter) - canfollow-up with his outpatient legislative advocate -- Monitor on tele; goal HR<120 -- [...] -- Saline-lock once IVF at goal -- SPRING SALVAGE WORKER eval for formal swallow (failed 06/13) -- [...] Rodriguez MD PhD at 06/14/2021 5:09 PM SCALE MECHANIC E MECHANIC E MECHANIC E MECHANIC * Clarence Soto MD PhD - 06/14/2021 [...] mg 50 mg feeding tube Q6H ??? eceikfwy-fci-gfnibzw gluconate (CENTRUM) 0.6 mg iron/mL oral liquid [...] eye QID PRN 2 drop at 06/13/21 08 ??? sodium chloride 0.9% flush 0.5-20 mL [...] found for: TROPONIN PT/OT assessment: PT Recommendation/Plan: Nursing Home Facility OT Recommendation: Inpatient Rehab Facility Assessment/Plan [...] Seth Kiser MD at 06/14/2021 8:24 AM SCALE MECHANIC E MECHANIC E MECHANIC * Ying Thompson MD - 06/13/2021 12:11 PM CST Neuro Critical Care Progress Note Dx: Encephalopathy HPI: 71M HTN/HL, a-fib on Eliquis, HFrEF (45-50% EF 2020), COPD not on home O2, legally blind, hearing loss, Ccy p/w trace tSAH and IVH following a fall. Admitted OSH with altered LOC. Initial CT negbut subsequent MRI with tr SAH/IVH. Tx to [facility] NSGY service 06/11 where has remained encephalopathic. [...] 1108 06/12/21 1634 06/12/21 1331 06/12/21 1144 06/11/212028 WBC K/cumm 4.9 8.3 7.5 < > [...] IMAGING (Most recent) NEURO IMAGING: CT (06/12/21 [facility]) IMPRESSION: Evolving small volume intraventricular hemorrhage and [...] bilateral toes). Oriented to self and location [facility] but states month as May . More [...] briskly than RUE. Withdraws BLEand intermittently distally /. NEUROLOGICAL Meds: ??? Keppra 500 mg q 12 hours ??? Tylenol prn (x 1 dose/24 hours) # Traumatic brain injury w/tSAH/IVH in setting of fall and AC -- Continue Keppra for 7 days pending EEG -- PT, OT, SPRING SALVAGE WORKER consults # Encephalopathy - suspect multifactorial with [...] most recently reportedly for a-fib, last dose 3/ -- Repeat LE duplex to reassess status [...] -- monitor for refeeding syndrome -- Formal SPRING SALVAGE WORKER eval -- Aspiration precautions # GERD -- [...] NSGY CODE STATUS: Full Code Disposition: 9400 LETI Cassie Trent NP I reviewed and confirmed the history, physical exam, laboratory and radiographic data with the house staff as documented in the note from today. I reviewed and discussed my treatment plan with the ICU team and other medical/nissan sales consultant staff as documented in the note. [...] Rodriguez MD PhD at 06/14/2021 5:09 PM SCALE MECHANIC E MECHANIC E MECHANIC * Maribel Combs, PT - 06/13/2021 10:43 [...] PT Recommendation and Plan Recommendation/Plan PT Recommendation/Plan: Nursing Home Facility PT Recommendation/Plan Comments: SNF pending activity [...] treatment team and contact the PT or TRAVELING BUYER currently assigned to this patient. If a physical therapy clinician is not assigned to this patient, please call [phone]. E MECHANIC * Trinity Meehan, OT - 06/13/2021 8:05 AM CST Occupational [...] unable to complete [employer] ([place] [employer]) Unable to complete Trails A [...] ADLs with modified independence 06/13/21 07/21/21 -- E MECHANIC * Cassie Trent NP - 06/13/2021 8:00 AM CST Neuro Critical Care Progress Note Dx: Encephalopathy HPI: 71M HTN/HL, a-fib on Eliquis, HFrEF (45-50% EF 2020), COPD not on home O2, legally blind, hearing loss, Ccy p/w trace tSAH and IVH following a fall. Admitted OSH with altered LOC. Initial CT negbut subsequent MRI with tr SAH/IVH. Tx to [facility] NSGY service 06/11 where has remained encephalopathic. [...] Intake/Output Summary (Last 24 hours) at 06/13/2021 0728 Last data filed at 06/13/2021 0705 Gross [...] Units 06/12/21 1634 06/12/21 1331 06/12/21 1144 06/11/219 WBC K/cumm 8.3 7.5 6.5 7.1 HEMATOCRIT % 41.4 39.4 37.5* 42.7 HEMOGLOBIN g/dL 14.2 13.5 12.5* 14.9 PLATELETS K/cumm 141* 126* 74* 137* APTT sec -- -- -- 31 INR -- -- -- 1.1 *06/12 114 CBC is [...] IMAGING (Most recent) NEURO IMAGING: CT (06/12/21 [facility]) IMPRESSION: Evolving small volume intraventricular hemorrhage and [...] bilateral toes). Oriented to self and location [facility] but states month as May . More [...] briskly than RUE. Withdraws BLEand intermittently distally /5. NEUROLOGICAL Meds: ??? Keppra 500 mg q 12 hours ??? Tylenol prn (x 1 dose/24 hours) # Traumatic brain injury w/tSAH/IVH in setting of fall and AC -- Continue Keppra for 7 days pending EEG report -- PT, OT, SPRING SALVAGE WORKER consults # Encephalopathy - suspect multifactorial with [...] refeeding syndrome -- RD c/s -- Formal SPRING SALVAGE WORKER eval -- Aspiration precautions # GERD -- [...] Rodriguez MD PhD at 06/14/2021 5:09 PM SCALE MECHANIC E MECHANIC E MECHANIC E MECHANIC * Clarence Soto MD PhD - 06/13/2021 [...] chloride (premix) 500 mg 500 mg intravenous [id number] ??? metoprolol tartrate (LOPRESSOR) immediate release tablet 50 mg 50 mg feeding tube Q6H ??? lwntdeuc-wbi-hicswcs gluconate (CENTRUM) 0.6 mg iron/mL oral liquid [...] feeding tube Q4H PRN 650 mg at 06/13/21327 ??? artificial saliva (MOUTH KOTE) spray 2 application 2 application mouth/throat Q4H PRN ??? bisacodyL (DULCOLAX) suppository 10 mg 10 mg rectal Daily PRN ??? hydrALAZINE (APRESOLINE) injection 10 mg 10 mg intravenous Q30 Min PRN Or ??? labetaloL (NORMODYNE,TRANDATE) injection 10 mg 10 mg intravenous Q30 Min PRN 10 mg at 06/12/211818 ??? ondansetron (ZOFRAN) injection 4 mg 4 [...] Seth Kiser MD at 06/14/2021 8:24 AM SCALE MECHANIC E MECHANIC E MECHANIC * Joce Rodriguez MD PhD - 06/12/2021 4:45 PM CST Neuro Critical Care Progress Note Dx: Encephalopathy HPI: 71M HTN/HL, a-fib on Eliquis, HFrEF (45-50% EF 2020), COPD not on home O2, legally blind, hearing loss, Ccy p/w trace tSAH and IVH following a fall. Admitted OSH with altered LOC. Initial CT negbut subsequent MRI with tr SAH/IVH. Tx to [facility] NSGY service 06/11 where has remained encephalopathic. [...] Labs Lab Units 06/12/21 1331 06/12/21 1144 06/11/21 2029 WBC K/cumm 7.5 6.5 7.1 HEMATOCRIT % 39.4 37.5* 42.7 HEMOGLOBIN g/dL 13.5 12.5* 14.9 PLATELETS K/cumm 126* 74* 137* APTT sec -- -- 31 INR -- -- 1.1 *06/12 1144 CBC is [...] recent) NEURO IMAGING: MRI wo contrast (06/11/21 [facility]) Small amount of intraventricular hemorrhage layering in the bilateral occipital horns again noted. No evidence of acute infarcts. Small subcentimeter foci of intraparenchymal hemorrhage noted in the right medial frontal lobe, right temporal lobe. No mass effect or midline shift. Trace/minimal subarachnoid hemorrhage also noted.Findings are similar to same day head CT. CT (06/11/21 [facility]) Scattered subarachnoid hemorrhage and intraventricular hemorrhage and [...] 7 days pending EEG -- PT, OT, SPRING SALVAGE WORKER consults # Encephalopathy -- SO denies recent confusion however describes episode of self-limited dysarthria approx 2 weeks prior to admission, confusion after fall approx 1 week ago, and recent fall with loss of consciousness. Long-standing history of daily alcohol use, last drink presumably 06/08 -- Empiric MVI, thiamine, folate - consider [...] for meds/future feeds -- Will need formal SPRING SALVAGE WORKER eval when appropriate from mental status perspective -- keep NPO tonight; at risk of requiring intubation # GERD -- Continue PPI INFECTION RELEVANT/MOST RECENT MICRO LAB DATA: Blood cultures: N/A Respiratory cultures: N/A Urinalysis/Urine culture: UA macro / negative nitrite/LE Meds: ??? N/A Afebrile and [...] plan with the ICU team and other medical/nissan sales consultant staff as documented in the note. [...] circulatory co llapse. Joce Rodriguez M.D., Ph.D. E MECHANIC * Mark Early NP - 06/12/2021 11:19 AM CST Transferred patient to step down unit at 7 am. Notified by RN, patient is very lethargic and not waking up for neuro exams. FISH SMOKER went to assess patient. Exam stable from morning rounds. Only OE to painful stimulation. Patient not able to stay awake. A/Ox1, dysarthric speech. Vital signs stable. Consulted medicine for AMS and syncope/cardiac w/up. Called by medicine at 1045, recommended patient transfer to ICU. ABG sent. Called ICU triage fellow for ICU transfer . Report given to ICU FISH SMOKER. E MECHANIC * Emerita Medina, LESLIE - 06/12/2021 10:53 AM CST 06/12/21 1053 General OT Missed Visit Reason Change in medical status (transferred to SDU) E MECHANIC * Vy Marin RN - 06/12/2021 10:15 AM CST Patient lethargic on neuro exam, FISH SMOKER called to bedside for assessment. ABG ordered and obtained - sent to lab E MECHANIC * Queta Rios PT - 06/12/2021 8:57 AM CST Physical Therapy 06/12/21 0856 General PT Missed Visit Reason MD/RN Hold (transferring to SDU due to being difficult to arouse) E MECHANIC * Vy Kimball RN - 06/12/2021 8:24 [...] in flowsheets.. Plan of care discussed with patient/sales representative meats, including as it relates to Active Problems: No Active Problems: There are no active problems currently on the Problem List. Please update the Problem List and refresh. Patient not progressing. Clinical goals [place] the [place] [address]. Education provided includes Discharge Planning, Fall Prevention, Isolation Precautions, Pain Management and Skin Breakdown Prevention/Treatment. Patient and/or sales representative meats No evidence of learning. Will continue to monitor. E MECHANIC * Guillermina Victor MD - 06/12/2021 6:05 [...] chloride (premix) 500 mg 500 mg intravenous [id number] ??? metoprolol (LOPRESSOR) injection 5 mg 5 [...] x7 days PT/OT, dispo planning CIWA protocol DVT prophylaxis: medical ppx contraindicated Responsible team (call resident in bold with questions) Vascular Note created by Guillermina Victor MD on 06/12/2021 at 6:05 AM. Cosigned by Seth Kiser MD at 06/14/2021 8:24 AM SCALE MECHANIC E MECHANIC E MECHANIC documented in this encounter H&P Notes * Cassie Trent NP - 06/12/2021 11:26 AM CST Neuro Critical Care Admission H&P ICU Admission Diagnosis: Encephalopathy HPI: History obtained via chart review, discussion with neurosurgery service, and interview with patient's significant other, Raine. Records from [facility] are limited, only H&P in paper chart. [...] and alcohol alcohol use whowas transferred to [facility] 06/11 from OSH after being found [...] to call EMS. He was taken to [facility] for evaluation and admitted. Documentation is limited [...] IPH for which hewas ultimately transferred to [facility] under the neurosurgerical service the evening of 06/11. He was continued on alcohol withdrawal protocol from OSH. Overnight 3/6-37 not following commands and somnolent, possibly worse [...] of encephalopathy and altered sensorium. Will call Critical access hospital records. Past Medical History: Diagnosis Date ??? [...] recent) NEURO IMAGING: MRI wo contrast (06/11/21 [facility]) IMPRESSION: Small amount of intraventricular hemorrhage layering in the bilateral occipital horns again noted. No evidence of acute infarcts. Small subcentimeter foci of intraparenchymal hemorrhage noted in the right medial frontal lobe, right temporal lobe. No mass effect or midline shift. Trace/minimal subarachnoid hemorrhage also noted.Findings are similar to same day head CT. CT (06/11/21 [facility]) FINDINGS: ?? Topogram demonstrates no lytic lesions [...] to ensure stable hemorrhage -- PT, OT, SPRING SALVAGE WORKER consults # Encephalopathy -- SO denies recent [...] HFrEF -- Per [place] visit [place] [facility] [place] 01/25/21 SPECT study in [...] for meds/future feeds -- Will need formal SPRING SALVAGE WORKER eval when appropriate from mental status perspective [...] Rodriguez MD PhD at 06/14/2021 5:09 PM SCALE MECHANIC E MECHANIC E MECHANIC E MECHANIC * Belinda Shaffer MD PhD - 06/11/2021 7:15 PM CST Neurosurgery History and Physical Patient: Jania Redman CSN: [id number] : 1950 Admission date: 06/11/2021 Admitting attending: [...] The patient's Raine can be reached at [phone]. 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 Family history: Reviewed and noncontributory. Physical [...] discussed with the chief resident and attending intervention teacher. Belinda Shaffer MD PhD] Cosigned by Seth Kiser MD at 06/14/2021 8:11 AM SCALE MECHANIC E MECHANIC E MECHANIC documented in this encounter Procedure Notes * [...] subsequent MRI with tr SAH/IVH. Tx to [facility] NSGY service 06/11 where has remained encephalopathic. Current Diet Order: NDD1,no liquid Baseline Feeding Status: Unknown General Information Jania Redman 07/05/21 SPRING SALVAGE WORKER Received On: 07/05/21 General Observations: Pt alert [...] swallow to ensure pt has cleared material. SPRING SALVAGE WORKER to f/u to ensure pt is tolerating [...] at 90 degrees. Consistencies Administered: Thin liquids, [place] thickened liquids, Purees Administered consistencies contain barium product. Thin Liquids: Laryngeal Penetration: Present Aspiration Present: Yes Timing: During Amount: Trace Response to aspiration: None Successful Modifications : None Unsuccessful Modifications: Cough Successful Modification Combinations: None Unsuccessful Modification Combinations: None Penetration Aspiration Scale-Thin: 8-Material enters the airway, passes below the vocal folds and no effort is made to eject [place] Thickened Liquids: Laryngeal Penetration: None Aspiration Present: No Successful Modifications : None Unsuccessful Modifications: None Successful Modification Combinations: None Unsuccessful Modification Combinations: None Penetration Aspiration Scale-[place]: 1-Material does not enter airway Purees: Laryngeal [...] intake to advance diet 06/26/21 07/10/21 -- SPRING SALVAGE WORKER Frequency of Services: Follow-up visit only SPRING SALVAGE WORKER Recommendation (Add'l Services): Acute Care SPRING SALVAGE WORKER Consult Next Visit Plan: treatment/therapy Additional Referrals: None Discharge Summary Statement If this is the last swallow therapy visit, this serves as the discharge summary. Cosigned by Queta Pires SLP at 07/05/2021 4:37 PM CDT * Mildred Buck SLP - 06/26/2021 1:02 PM CDTAssociated Order(s): SPRING SALVAGE WORKER EVALUATE AND TREAT VIDEOFLUOROSCOPIC SWALLOW STUDY Speech-Language Pathology: Videofluoroscopic Study of Swallow (VFSS/MBS) HPI/PMH Per sign in room, pt is [place] and blind Admitted 06/11 HPI/PMH: 71M HTN/HL, a-fib on Eliquis, HFrEF (45-50% EF 2020), COPD not on home O2, legally blind, hearing loss, Ccy p/w trace tSAH and IVH following a fall. Admitted OSH with altered LOC. Initial CTneg but subsequent MRI with tr SAH/IVH. Tx to [facility] NSGY service 06/11 where has remained encephalopathic. [...] Status: unknown General Information Jania Redman 06/26/21 SPRING SALVAGE WORKER Received On: 06/26/21 General Observations: Pt seen [...] Administered: Thin liquids, [place] thickened liquids, Purees, [place] thickened liquids Respiratory Support: No Significant Impairment- [...] date given pt unable to follow commands [place] Thickened Liquids: Laryngeal Penetration: Present Aspiration Present: Yes Timing: During Amount: Moderate Response to aspiration: None (Flash aspiration during the swallow which cleared from airway into laryngeal vestible; however, material remained deep within laryngeal vestibule and pt did not sense.) Penetration Aspiration Scale-[place]: 6-Material enters the airway, passes below the [...] treatment goals and details, if indicated. Plan SPRING SALVAGE WORKER Frequency of Services: 2-4x/wk SPRING SALVAGE WORKER Recommendation (Add'l Services): Inpatient Rehab Facility SPRING SALVAGE WORKER - Next Appointment: 06/28/21 Next Visit Plan: treatment/therapy Additional Referrals: PT/OT Discharge Summary Statement If this is the last swallow therapy visit, this serves as the discharge summary. AMOL Dias, CCC-SPRING SALVAGE WORKER, 06/26/21 2:28 PM * Mildred Buck SLP - 06/23/2021 2:53 PM CDT Speech-Language Pathology: Clinical Bedside Swallow HPI/PMH HPI/PMH: 71M HTN/HL, a-fib on Eliquis, HFrEF (45-50% EF 2020), COPD not on home O2, legally blind, hearing loss, Ccy p/w trace tSAH and IVH following a fall. Admitted OSH with altered LOC. Initial CTneg but subsequent MRI with tr SAH/IVH. Tx to [facility] NSGY service 06/11 where has remained encephalopathic. [...] Baseline Feeding Status: unknown General Information Jania Nugent Юлия 06/23/21 General Observations: Pt seen sitting upright [...] Outcomes Measurement System: (TBD following MBS) Plan SPRING SALVAGE WORKER Frequency of Services: (TBD following MBS) SPRING SALVAGE WORKER Recommendation (Add'l Services): Defer at this time (TBD following MBS) SPRING SALVAGE WORKER - Next Appointment: 06/26/21 Further Assessment/Follow up Indicated: Recommendations: Follow-up videofluoroscopic swallowing study Next Visit Plan:instrumental evaluation Additional Referrals: PT/OT Please reference care plan for treatment goals, if indicated. Discharge Summary Statement If this is the last swallow therapy visit, this serves as the discharge summary. AMOL Dias, CCC-SPRING SALVAGE WORKER, 06/23/21 4:29 PM * Chyna Tucker SLP - 06/21/2021 9:59 AM CDT Speech-Language Pathology: Clinical Bedside Swallow HPI/PMH 71M HTN/HL, a-fib on Eliquis, HFrEF (45-50% EF 2020), COPD not on home O2, legally blind, hearing loss, Ccy p/w trace tSAH and IVH following a fall. Admitted OSH with altered LOC. Initial CT neg but subsequent MRI with tr SAH/IVH. Tx to [facility] NSGY service 06/11 where has remained encephalopathic. [...] Baseline Feeding Status: unknown General Information Jania Nugent Юлия 06/21/21 General Observations: Swallow evaluation completed in [...] very loud verbal cues to rouse upon SPRING SALVAGE WORKER arrival in room. No family/visitors present. Pt [...] National Outcomes Measurement System: (pending re-eval) Plan SPRING SALVAGE WORKER Frequency of Services: (pending re-eval) SPRING SALVAGE WORKER Recommendation (Add'l Services): (pending re-eval) Further Assessment/Follow [...] Posadas MD Authorized by: Shelia Posadas MD [place] Protocol: RN Notified of Procedure: yes Informed consent: Risks, benefits, alternatives discussed and patient/sales representative meats/guardian agrees and accepts Patient's stated name/ matches armband: Yes Allergies confirmed: yes Consent form signed, dated, timed; matches correct patient, intended procedure and site: No consentform due to emergent status Imaging: Pertinent imaging [...] MD PhD at 06/22/2021 2:10 PM CDT E MECHANIC * Mildred Buck, JOE - 06/13/2021 8:54 AM CST Speech-Language Pathology: Clinical Bedside Swallow HPI/PMH HPI/PMH: 71M HTN/HL, a-fib on Eliquis, HFrEF (45-50% EF 2020), COPD not on home O2, legally blind, hearing loss, Ccy p/w trace tSAH and IVH following a fall. Admitted OSH with altered LOC. Initial CTneg but subsequent MRI with tr SAH/IVH. Tx to [facility] NSGY service 06/11 where has remained encephalopathic. [...] lethargy, additional trials not attempted this date. SPRING SALVAGE WORKER to continue to follow and complete swallow [...] Measurement System: (TBD following swallow re-evaluation) Plan SPRING SALVAGE WORKER Frequency of Services: (TBD following swallow re-evaluation) SPRING SALVAGE WORKER Recommendation (Add'l Services): Defer at this time (TBD following swallow re-evaluation) SPRING SALVAGE WORKER - Next Appointment: 06/15/21 Further Assessment/Follow up Indicated: Recommendations: (swallow re-evaluation) Next Visit Plan:swallow re-evaluation Additional Referrals: PT/OT Please reference care plan for treatment goals, if indicated. Discharge Summary Statement If this is the last swallow therapy visit, this serves as the discharge summary. AMOL Dias, CCC-SPRING SALVAGE WORKER, 06/13/21 9:33 AM E MECHANIC documented in this encounter Consult Notes * Shayla Cardenas NP - 07/03/2021 7:56 PM CDT Patient Name: JANIA REDMAN Medical Record Number (MRN): [id number] Date of (): 1950 Encounter Date: 06/11/2021 [...] and EtOH use, who was transferred to [facility] from [facility] 06/11/21 after being found to have traumatic SAH and IVH after fall. He was reportedly reaching for something and lost his balance, +head strike and LOC. There was also a reported unwitnessed fall the week TRAVELING BUYER. He initially presented to [facility] 06/08, where he was evaluated for possible syncopal episodes. There were reported involuntary movements and n ystagmus and he was loaded with Keppra and planned for EEG. He was started on CIWA protocol w/ librium. MRI revealed SAH, IVH and small IPH, and he was transferred to [facility] for NSGY consult. At [facility] after transfer he was noted to have [...] Exam as below. Discussed recs with social science instructor on floor. OT recs for IRF, PT [...] Continuous Elizabeth Persaud NP 50 mL/hr at 06/30/21620 50 mL/hr at 06/30/21620 ??? docusate (COLACE) 10 mg/mL oral liquid 100 mg 100 mg feeding tube Daily Sada العلي NP 100 mg at 06/29/21 0946 ??? heparin 5,000 unit/mL injection 5,000 Units 5,000 Units subcutaneous Q8H [facility] Cassie Trent NP 5,000 Units at 06/30/21 0615 ??? metoprolol tartrate (LOPRESSOR) immediate release tablet 50 mg 50 mg feeding tube BID Jair Jay MD 50 mg at 06/30/21927 ??? miconazole (SECURA THICK) 2 % cream topical BID Andreia Ellis MD Given at 06/30/2131 ??? kkquxgwb-esx-vjzsyfa gluconate (CENTRUM) 0.6 mg iron/mL oral liquid 15 mL 15 mL feeding tube Daily Cassie Trent NP 15 mL at 06/30/21927 ??? pantoprazole (PROTONIX) 4 mg/mL injection 40 mg 40 mg intravenous Daily Mily Cuevas NP 40 mg at 06/30/21 0913 ??? pravastatin (PRAVACHOL) tablet 40 mg 40 mg feeding tube Daily Cassie Trent NP 40 mg at 06/30/21927 ??? ramelteon (ROZEREM) tablet 8 mg 8 mg feeding tube Nightly Tamiko Ray NP 8 mg at 06/29/21 1745 ??? senna 1.76 mg/mL syrup 8.8 mg 8.8 mg feeding tube BID Sada العلي NP 8.8 mg at 06/29/215 ??? sodium chloride 0.9% flush 0.5-20 mL 0.5-20 mL intra-catheter Q8H [facility] Belinda Shaffer MD PhD 10 mL at [...] 100 mg feeding tube Nightly Ciarra Jama, FISH SMOKER 100 mg at 06/29/212114 Allergies Allergen Reactions [...] Cigarette smoker : (Added by TW Therese) Social Determinants of Health Financial Resource Strain: [...] with Friends and Family: Never ??? Attends Druze Services: Never ??? 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 He was reportedly reaching for something and lost his balance, +head strike and LOC. There was also a reported unwitnessed fall the week TRAVELING BUYER. He initially presented to [facility] 06/08, where he was evaluated for possible syncopal episodes. There were reported involuntary movements and n ystagmus and he was loaded with Keppra and planned for EEG. He was started on CIWA protocol w/ librium. MRI revealed SAH, IVH and small IPH, and he was transferred to [facility] for NSGY consult. At [facility] after transfer he was noted to have [...] have patient evaluated by PT, OT, and SPRING SALVAGE WORKER -Recommend SPRING SALVAGE WORKER cognition evaluation for further SPRING SALVAGE WORKER cognitive therapy planning; neurology has givenrecs as [...] Consult service at . Shayla Cardenas, MSN, FOREIGN LANGUAGES PROFESSOR, AGNP-C Adult-Gerontology Nurse Practitioner-Certified Physical Medicine & Rehabilitation [facility] [place] * Girma Mcleod MD - 07/03/2021 11:55 [...] alcohol alcohol use who was transferred to [facility] 06/11 from OSH after being found [...] for which he was ultimately transferred to [facility] under the neurosurgerical service the evening of [...] on PM of 06/29 (susceptibilities sent to [place]). Extubated on 06/18 and placed on high [...] THICK) 2 % cream topical BID ??? xbrjmsot-fnn-szhlzrp gluconate (CENTRUM) 0.6 mg iron/mL oral liquid [...] Data Recent Labs Lab Units 07/03/21 0008 06/28/21 2224 06/27/21 2145 WBC K/cumm 6.3 6.3 10.2* HEMOGLOBIN g/dL 11.9* 12.2* 11.7* HEMATOCRIT % 35.4* 34.5* 33.7* PLATELETS K/cumm 184 217 240 Recent Labs Lab Units 07/03/21 0008 07/02/21 2209 07/01/21 2235 06/29/21 2313 06/29/21211606/28/21 2224 SODIUM mmol/L 138 -- -- -- [...] Narrative Video-EEG Report Patient Name: Jania Redman [facility] Medical Record Number (MRN): [id number] [facility] Record: [id number] Date of (): 1950 EEG Date: 06/12/2021 [...] digital EEG were recorded continuously with a [employer] EEG acquisition system. This was a 32 [...] Routine EEG Report Patient Name: Jania Redman [facility] Medical Record Number (MRN): [id number] [facility] Record: [id number] Date of (): 1950 EEG Date: 06/15/2021 [...] 32 channel EEG recording acquired on a Etalia Ullink EEG-1200 acquisition system. Scalp electrodes were placed [...] alcohol alcohol use who was transferred to [facility] 06/11 from OSH after being found [...] the interim, please contact neurology consults at [phone] (senior) and specify that this consult was staffed with Consult Team Noman Mcleod M.D. PGY-3 Cosigned by Brijesh Conley [...] is needed at this time. * Shayla Cardenas NP - 06/30/2021 4:40 PM CDTAssociated Order(s): CONSULT TO PM&R PHYSICIAN Patient Name: JANIA REDMAN Medical Record Number (MRN): [id number] Date of (): 1950 Encounter Date: 06/11/2021 [...] and EtOH use, who was transferred to [facility] from [facility] 06/11/21 after being found to have traumatic SAH and IVH after fall. He was reportedly reaching for something and lost his balance, +head strike and LOC. There was also a reported unwitnessed fall the week TRAVELING BUYER. He initially presented to [facility] 06/08, where he was evaluated for possible syncopal episodes. There were reported involuntary movements and n ystagmus and he was loaded with Keppra and planned for EEG. He was started on CIWA protocol w/ librium. MRI revealed SAH, IVH and small IPH, and he was transferred to [facility] for NSGY consult. At [facility] after transfer he was noted to have [...] injection 5,000 Units 5,000 Units subcutaneous Q8H [facility] Cassie Trent NP 5,000 Units at 06/30/21 0615 ??? metoprolol tartrate (LOPRESSOR) immediate release tablet 50 mg 50 mg feeding tube BID Jair Jay MD 50 mg at 06/30/21 0928 ??? miconazole (SECURA THICK) 2 % cream topical BID Andreia Ellis MD Given at 06/30/21 0931 ??? umbdjcjc-vms-umtybcw gluconate (CENTRUM) 0.6 mg iron/mL oral liquid 15 mL 15 mL feeding tube Daily Cassie Trent NP 15 mL at 06/30/21 0928 ??? pantoprazole (PROTONIX) 4 mg/mL injection 40 mg 40 mg intravenous Daily Mily Cuevas NP 40 mg at 06/30/21 0913 ??? pravastatin (PRAVACHOL) tablet 40 mg 40 mg feeding tube Daily Cassie Trent NP 40 mg at 06/30/21 0928 ??? ramelteon (ROZEREM) tablet 8 mg 8 mg feeding tube Nightly Tamiko Ray NP 8 mg at 06/29/21 1745 ??? senna 1.76 mg/mL syrup 8.8 mg 8.8 mg feeding tube BID Sada العلي NP 8.8 mg at 06/29/21 2115 ??? sodium chloride 0.9% flush 0.5-20 mL 0.5-20 mL intra-catheter Q8H [facility] Belinda Shaffer MD PhD 10 mL at 06/30/21 0616 ??? sodium chloride 0.9% flush 0.5-20 mL 0.5-20 mL intra-catheter [facility] Belinda Shaffer MD PhD 10 mL at 06/25/21 0745 ??? terazosin (HYTRIN) capsule 10 mg 10 mg feeding tube Nightly Ciarra Jama NP 10 mg at 06/29/212112 ??? thiamine (VITAMIN [...] with Friends and Family: Never ??? Attends Druze Services: Never ??? Active Member of Clubs [...] for support -Contact: , Raine Redman; phone [phone] Pre-hospitalization Function Unable to determine pre-hospitalization function from chart Current Functional Status Current Therapy Evaluations: OT 06/30 Grooming edge of bed mos assist LE dressing max assist Toileting supine dependent with bedpan Bed mobility supine <> rolling max assist Supine <> edge of bed max assist x 2 Transfers not attempted PT 06/28 A&O x 1 Resisted sit to stand, pushes posterior SPRING SALVAGE WORKER 06/29 Dysphagia 1, NPO liquids, meds crushed w/ puree Recommendation/Plan PT Recommendation/Plan: Nursing Home Facility PT Recommendation/Plan Comments: SNF pending activity [...] and EtOH use, who was transferred to [facility] from [facility] 06/11/21 after being found to have traumatic SAH and IVH after fall. He was reportedly reaching for something and lost his balance, +head strike and LOC. There was also a reported unwitnessed fall the week TRAVELING BUYER. He initially presented to [facility] 06/08, where he was evaluated for possible syncopal episodes. There were reported involuntary movements and n ystagmus and he was loaded with Keppra and planned for EEG. He was started on CIWA protocol w/ librium. MRI revealed SAH, IVH and small IPH, and he was transferred to [facility] for NSGY consult. At [facility] after transfer he was noted to have [...] have patient evaluated by PT, OT, and SPRING SALVAGE WORKER -Recommend Neuro and SPRING SALVAGE WORKER cognition evaluation for further SPRING SALVAGE WORKER cognitive therapy planning -Patient would need to [...] Consult service at . Shayla Cardenas, MSN, FOREIGN LANGUAGES PROFESSOR, AGNP-C Adult-Gerontology Nurse Practitioner-Certified Physical Medicine & Rehabilitation [facility] [place] Cosigned by Analisa Causey MD at 07/01/2021 11:15 AM CDT * Oneyda Mathews, RD - 06/28/2021 10:19 AM CDT Nutrition Tube Feeding Assessment Reason for Assessment: follow-up Encounter Date: 06/28/21 11:03 AM Patient is a 71 y.o. male LOS is 17 days. HPI: HTN/HL, a-fib on Eliquis, HFrEF (45-50% EF 2020), COPD not on home O2, legally blind, hearing loss,Ccy p/w trace tSAH and IVH following a fall. Admitted OSH with altered LOC. Tx to [facility] NSGY service 06/11 where has remained encephalopathic. [...] (Calculated) : 78 kg Height: 180.3 cm (5 10.98 ) Weight in (lb) to have [...] of Weight Used for Estimated Protein : [place] Protein Needs Based on g/k.2 Total Protein [...] tube, Q8H [facility] miconazole, , topical, BID swlfrktr-ccr-soqraqa gluconate, 15 mL, feeding tube, Daily pantoprazole, [...] mL/hr, Last Rate: 75 mL/hr (06/28/21 0754) Lab Review: Sodium Date Value Ref Range [...] Liquid Diet effective now Question Answer Comment ([facility]) Diet type Restricted Modified Consistency: Dysphagia 1 [...] po, plan is to restart TF. TF off 0730 Diet: pureed, no liquids. PO intake bites, [...] 1094 ml free water. TF off 06/27 0730 If NOC TF, Jevity 1.5 @ 80 [...] Oneyda Mathews RD, LD Weekend / Consult [phone] * Andreas Gonzalez MD - 06/24/2021 9:00 PM CDT [facility] Trauma Surgery Tertiary Exam Jania Redman was [...] subsequently transferred to our hospital to the [facility] for further evaluation management. Briefly the patient had a fall with loss of consciousness and hit his head 3 days ago. Per outside hospital records the patient had 3 homemade Aby is prior to the fall. A noncontrasthead CT was obtained which was negative for intracranial hemorrhage. Brain MRI acquired at the timedemonstrated small volume intraventricular hemorrhage in the occipital [...] surgery standpoint, but appropriate to transfer to [facility] in the AM. Plan -Ok to to transfer to [facility] primary when leaves the NICU Cosigned by [...] Admitted OSH with altered LOC. Tx to [facility] NSGY service 06/11 where has remained encephalopathic. [...] of Weight Used for Estimated Protein : [place] Protein Needs Based on g/k.2 Total Protein [...] metroNIDAZOLE, 500 mg, feeding tube, Q8H [facility] ytqgtfiz-hnd-afghqgg gluconate, 15 mL, feeding tube, Daily pantoprazole, [...] pass bedside swallow, to have MBS 06/24 06/23 + bm Spoke with nurse regarding skin [...] Oneyda Mathews RD, LD Weekend / Consult [phone] * Oneyda Mathews RD - 06/20/2021 2:10 [...] Admitted OSH with altered LOC. Tx to [facility] NSGY service 06/11 where has remained encephalopathic. [...] of Weight Used for Estimated Protein : [place] Protein Needs Based on g/k.2 Total Protein [...] Q6H metroNIDAZOLE, 500 mg, feeding tube, BID tqqodfnx-bnj-zfghqad gluconate, 15 mL, feeding tube, Daily [START [...] goal 60 ml/hr Folic Acid 1 mg/day YL-wnb-emutkix gluconate daily Thiamine 250 mg IV q [...] Oneyda Mathews RD, LD Weekend / Consult [phone] * Theo Mcdonnell MD - 06/18/2021 5:36 [...] atrial fibrillation (on eliquis, last 33), CHF, COPD Plan: Non-op L greater troch [...] drugs, retired, lives w/ spouse. Edited by: Theo Mcdonnell MD at 06/18/2021 6334 Patient unable to describe pain 2/2 mental status. Past Medical History: Diagnosis Date ??? Acute cholecystitis ??? Alcohol use ??? Anxiety ??? Atrial fibrillation (CMS/HCC) (HCC) ??? Blind legally blind ??? BPH (benign prostatic hyperplasia) ??? BPH (benign prostatic hyperplasia) ??? CHF (congestive heart failure) (CMS/HCC) (HCC) ??? CHF (congestive heart failure) (CMS/HCC) ([facility]) ??? Cholecystitis ??? Chronic anemia ??? COPD [...] Take 5,000 Units by mouth every morning ProvideraMnish MD folic acid (FOLVITE) 1 mg tablet [...] tablet Take 40 mg by mouth daily Manish Cabezas MD terazosin (HYTRIN) 10 mg capsule Take 1 capsule (10 mg total) by mouth nightly Patient taking differently: Take 10 mg by mouth nightly 02/22/20 01/25/21 Abiodun Rodgers MD thiamine (VITAMIN B1) 100 mg tablet Take 100 mg by mouth every morning Provider, MD Manish Allergies Allergen Reactions ??? Penicillins Hives Social [...] recommendations. Theo Mcdonnell MD Orthopaedic Surgery Resident [phone] ?? Normal business hours: If you know the resident's name on the appropriate orthopaedic surgery team, please use the Directory Search at [email or web address] to page resident directly. ?? If questions arise and the appropriate resident can't be reached or you are calling overnight, please contact [phone] (Sat- 7:30 PM - 6:30 AM - Floor Resident) or [phone] (24 hours/day- Consult Resident) Cosigned by Yoanna [...] Q4H PRN Cassie Trent NP 650mg at 06/14/212046 ??? amiodarone (PACERONE) tablet 400 [...] (premix) 2,000 mg 2,000 mg intravenous Q24H [facility] Patricia Ferrer NP 2,000 mg at 06/17/212046 [...] injection 5,000 Units 5,000 Units subcutaneous Q8H [facility] Cassie Trent NP 5,000 Units at 06/17/212100 ??? levalbuterol (XOPENEX) 1.25 mg/3 mL nebulizer solution 1.25 mg 1.25 mg nebulization Q6H PRN (RT) Jaycee Katiagriselda Cervantes NP 1.25 mg at 06/14/21 0914 ??? levETIRAcetam (KEPPRA) tablet 500 mg 500 mg feeding tube BID Cassie Trent NP 500 mg at 06/17/21 1303 ??? metoprolol tartrate (LOPRESSOR) immediate release tablet 25 mg 25 mg feeding tube Q6H Candido Uribe MD 25 mg at 06/17/212047 ??? osttdpiq-sha-zmdksns gluconate (CENTRUM) 0.6 mg iron/mL oral liquid 15 mL 15 mL feeding tube Daily Cassie Trent NP 15 mL at 06/17/21 0817 ??? ondansetron (ZOFRAN) injection 4 mg 4 mg intravenous Q6H PRN Belinda Shaffer MD PhD ??? pantoprazole (PROTONIX) 4 mg/mL injection 40 mg 40 mg intravenous Q24H [facility] Cassie Trent NP 40 mg at 06/17/21 0819 ??? polyvinyl [...] flush 0.5-20 mL 0.5-20 mL intra-catheter Q8H [facility] Belinda Shaffer MD PhD 10 mL at 06/17/212100 ??? sodium chloride 0.9% flush 0.5-20 mL 0.5-20 mL intra-catheter PRN Belinda Shaffer MD PhD ??? sodium chloride 0.9% flush 0.5-20 mL 0.5-20 mL intra-catheter Q8H [facility] Belinda Shaffer MD PhD 10 mL at 06/17/212100 ??? sodium chloride 0.9% flush 0.5-20 mL 0.5-20 mL intra-catheter PRN Belinda Shaffer MD PhD ??? terazosin (HYTRIN) capsule 20 mg 20 mg feeding tube Nightly Jair Jay MD 20 mgat 06/17/212046 ??? thiamine (VITAMIN B-1) 250 mg in sodium chloride 0.9% 100 mL IVPB 250 mg intravenous Q24H [facility] Cassie Trent NP 205 mL/hr at 06/17/21 [...] with Friends and Family: Never ??? Attends Druze Services: Never ??? Active Member of Clubs [...] Physical Exam: Vitals: 06/17/21 1800 06/17/21 1900 06/17/21 2000 06/17/21 2100 BP: 117/70 134/88 135/93 141/95 BP Location: Left arm Left arm Left arm Left arm Patient Position: HOB 30 degrees HOB 30 degrees HOB 30 degrees HOB 30 degrees Pulse: 103 91 107 104 Resp: 22 16 19 20 Temp: 37.4 ??C (99.32 ??F) 37.2 ??C [...] or concerns, please page Urology through the blending operator. Rui Selby MD 06/17/2021 Cosigned by Ray Vera MD at 06/18/2021 12:04 PM CDT * KierastephanieOneyda, RD - 06/14/2021 10:54 AM CST Nutrition Tube Feeding Assessment Reason for Assessment: follow-up Encounter Date: 06/14/21 10:54 AM Patient is a 71 y.o. male LOS is 3 days. HPI: HTN/HL, a-fib on Eliquis, HFrEF (45-50% EF 2020), COPD not on home O2, legally blind, hearing loss,Ccy p/w trace tSAH and IVH following a fall. Admitted OSH with altered LOC. Tx to [facility] NSGY service 06/11 where has remained encephalopathic. [...] (Calculated) : 78 kg Height: 180.3 cm ( ) Weight in (lb) to have BMI = 25: 178.8 BMI (Calculated): 26.4 Nutrition Needs Calculations: Calculated Energy Needs Using Equations Weight Used for Equation Calculations (RD Determined): 85.8 kg (189 lb 2.5 oz) Weight: 85.8 kg (189 lb 2.5 oz) Height: 180.3 cm ( ) Estimated Protein Needs Type of Weight Used for Estimated Protein : [place] Protein Needs Based on g/k.2 Total Protein [...] metoprolol tartrate, 50 mg, feeding tube, Q6H aiyocbgb-htz-fawlvmg gluconate, 15 mL, feeding tube, Daily pantoprazole, [...] goal 60 ml/hr Folic Acid 1 mg/day BP-gtl-ohdxgjn gluconate daily Thiamine 250 mg IV q [...] Oneyda Mathews RD, LD Weekend / Consult [phone] E MECHANIC E MECHANIC * Ward, Bryson Allen MD - 06/13/2021 6:33 PM CSTAssociated Order(s): IP CONSULT TO UROLOGY BRIEF UROLOGY CONSULT NOTE Jania Redman is a 71 y.o. male history of a-fib, HFrEF (45-50% EF 2020) and alcohol alcohol use whowas transferred to [facility] 06/11 from OSH after being found [...] The phone number for our clinic is [phone] - Urology will sign off. Thank you for allowing us to participate in this patient's care. To reach the urology consult resident from 6:00 to 18:00 (Saturday-Saturday), please call [phone].If you want to contact Urology consults after hours (18:00 to 6:00) and over the weekend, please call the blending operator Bryson Ward MD Cosigned by Sarah Bangura MD at 06/19/2021 10:35 AM CDT E MECHANIC * Kaushik Sousa RD - 06/13/2021 2:11 PM CSTAssociated Order(s): IP [...] Admitted OSH with altered LOC. Tx to [facility] NSGY service 06/11 where has remained encephalopathic. [...] (Calculated) : 78 kg Height: 180.3 cm ( ) Weight in (lb) to have BMI = 25: 178.8 BMI (Calculated): 26.4 Nutrition Needs Calculations: Calculated Energy Needs Using Equations Weight Used for Equation Calculations (RD Determined): 85.8 kg (189 lb 2.5 oz) Weight: 85.8 kg (189 lb 2.5 oz) Height: 180.3 cm ( ) Estimated Protein Needs Type of Weight Used for Estimated Protein : [place] Protein Needs Based on g/k.2 Total Protein [...] (97.52 ??F) SpO2: 100% Height: 180.3 cm ( [...] metoprolol tartrate, 50 mg, feeding tube, Q6H zzwkhojd-hba-ulvlgum gluconate, 15 mL, feeding tube, Daily pantoprazole, 40 mg, intravenous, Q24H [facility] pravastatin, 40 mg, feeding tube, Daily senna, 8.8 mg, feeding tube, BID sodium chloride 0.9%, 0.5-20 mL, intra-catheter, Q8H [facility] sodium chloride 0.9%, 0.5-20 mL, intra-catheter, Q8H [facility] terazosin, 10 mg, feeding tube, Nightly thiamine, [...] Stool patterns Kaushik Sousa, , RD, LD, [facility] [phone] Weekend / Consult [phone] E MECHANIC documented in this encounter Nursing Notes * Trinity Wu RN - 07/07/2021 7:55 PM CDT Patient discharged to [facility] per order. Report called to Jaqueline Wolff. Discharge instructions reviewed with patient. Second nurse signature obtained due to confusion. Signed copyin chart. IV accesses removed. Belongings sent with patient. Telemetry removed. Patient left via EMS. * Jenn Kendrick RN - 07/07/2021 2:22 PM CDT Student nurse from [employer], caring for patient for duration of shift. [...] - 06/29/2021 2:46 PM CDT Patient presented from:[facility] Arrived by:EMS Arrived to:ICU Admitted:ICU Readmit:No Presenting mechanism/injuries:fall with IVH Support: Recommendations:pt/ot SNF placement Participation:Assist CD Resources:Provided Business cards left with education and resource packet for additional questions/needs Lisa Flores Nurse Coordinator Trauma and Acute Care Surgery [phone] * Latha Chaves RN - 06/28/2021 4:38 PM CDT Transferred patient to [facility]. Report given to Dmitry NOLASCO. Pt sent on telemetry. * Ani Chavez RN - 06/19/2021 1:40 PM CDT The underside of the scrotum is intact with no visible wound seen. Where the abcess was visible there is a small pore-like opening with no drainage noted. * Vy Marin RN - 06/12/2021 11:01 AM CST Patient still lethargic for neuro exams, vice president of business development at bedside. Patient only arousalable for 1-2 sec with sternal rub (painful stim) and will follow 1 command then will become lethargic again. RT called at MD request for assessment. ACT RN called by MD for POC ABGs. ACT team arrived and performed ABG. INDUSTRIAL ENGINEERING INTERN called and came to bedside. Patient continues to run Afib on monitor 110-140's. Patient to be transferred to ICU for observation. Report given to INDUSTRIAL ENGINEERING INTERN and subsystems engineer. All belongingsat bedside sent with patient. Called Patient's to update her and gave her phone number to call for update E MECHANIC documented in this encounter Miscellaneous Notes * Plan of Care - Clarence Coronado RRT - 07/07/2021 6:52 PM CDT Medical Conditions [...] on chronic anemia ??? Thrombocytopenia (CMS/HCC) (HCC) Patient receives Breo ellipta daily, but is [...] injury from restraints (Restraint for Interference with Naval Aircrewman Operator) Description: INTERVENTIONS: 1. Identify and document the [...] Free from restraint(s) (Restraint for Interference with Naval Aircrewman Operator) Description: INTERVENTIONS: 1. Q2H and PRN: Assess [...] 8:56 AM CDT Per DCAM rounds with Engineer Booster And Exhauster, Clinical Applications Manager, Charge Nurse, and MD, the patient is medically stable for discharge at this time. Problem: Ensure acute medical needs are met and that patient has a safe discharge plan. Goal: Secure a placement that patient/family are agreeable with and ensure patient has continuum ofcare. Discharge plan: SW contacted patient's significant other/primary contact, Raine, to follow up on patient's discharge plan and reviewed accepting SNF, [facility]. Per discharge plan discussion, SW explained multiple SNF referrals may need to be sent due to patient's high acuity care. Raine verbalized understanding. Additionally, Raine requested preference for SNF on the [place] side with high ratings, but is agreeable to SW sending SNF referrals in [place], [place]. Update: SW reviewed SNF referrals sent via [employer]. [facility] admissions reported facility can medically accept patient, pending insurance auth. AMARJIT contacted Raine to report discharge plan updates. Raine is agreeable to accepting SNF. Admissions has submitted insurance auth. Insurance: [place] Medicare ADD: 07/07 SW to follow. PAIGE [...] , buttocks Assessments Row Name 07/05/21 0755 03/195707/04/21 0807/03/21 2238 Wound Status Healing Healing Healing Healing Site Assessment Clean;Color appropriate for ethnicity;Dry;[place] Clean;Color appropriate for ethnicity;Dry;[place] Clean;Color appropriate for ethnicity;Dry;[place] Clean;Color appropriate for ethnicity;Dry;Valliant Valentine-wound Assessment Blanchable erythema Blanchable erythema Blanchable erythema Blanchable erythema Margins Attached edges Attached edges Attached edges Attached edges Closure Open to air -- Open to air -- Drainage Amount None -- None -- Dressing Status Open to Air -- Open to Air -- Interventions -- Cleansed;Pharmacological (see MAR) -- -- , Vitals Info Only Vital Signs Report 07/04 0707/05 0659 07/05 1601 Most Recent Temp (??C) 36 - 37 36.3 - 36.7 36.3 (97.3) 07/05 112 Pulse 73 - 162 81 - 116 [...] OT Equipment Recommended -- -- Shower chair - OT - Next Appointment -- -- 06/30/21 - OT Evaluation Complete -- -- Yes -FK User Troy (r) = Recorded By, (t) = Taken By, (c) = Cosigned By Initials Name Effective Dates TOYIN Roxanne, Christine 04/12/21 - Vane Putnam, OT 03/09/19 - OT Treatment Row Name [...] posterior and lateral leaning -EL For safety - For safety andmaintaining upright posture -FK Static [...] -- -- Impaired Pt scored 04/29 on [place] Blind -FK Arousal/Alertness Alert;Delayed responses to stimuli [...] step commands with repetition Pt blind and [place] - EL Follows one step commands with [...] -EL Decreased awareness of deficits -FK Decreased awarenessof deficits -FK Problem Solving Assistance required to [...] during this session as pt participated in [place] Blind screening. Pt tolerated sitting EOB for [...] Next Appointment 07/06/21 -EL 07/04/21 -FK 07/03/21 -FK User Troy (r) = Recorded By, (t) = Taken By, (c) = Cosigned By Initials Name Effective Dates Christine Gibson 04/12/21 - EL Emerita Duke OT 12/07/20 - OT Notes 07/05/2021 2:39 [...] Reach;Chair Alarm placed and activated;Notified RN - JL -- Subjective Agreeable to Therapy -JL Agreeable [...] Follows one step commands with repetition pt [place] which may affect command following -[facility] Follows [...] Recommendation/Plan PT Recommendation/Plan Inpatient Rehab Facility -[facility] -[facility] -- PT Frequency 3-5x/wk -[facility] [...] Dates Kell Salgado, PT 12/24/19 - Kirill Gu, DPT 08/25/20 - PT Notes 07/05/2021 12:00 PM Progress Notes signed by Kirill Dean, DPLaurence , [employer] Eval and Treat Last 72 Hours [employer] Evaluation Row Name 07/04/21 0803 [employer] Missed Visit Reason Procedure/testing/appointment;NPO cx. NPO for OR today. -MS [employer] Frequency of Services Other (comment) pending [facility] [place] [employer] - Next Appointment 07/05/21 -MS User Troy (r) = Recorded By, (t) = Taken By, (c) = Cosigned By Initials Name Effective Dates Sandra Crowder, [employer] WORK[employer] 03/24/21 - [employer] WORK[employer] Treatment Row Name 07/03/21 1405 06/29/21 1319 06/29/21 1040 Session Type Treatment -CJA (r) CJ (c) Treatment - Treatment - [employer] Received On 07/03/21 -CJA (r) CJ (c) 06/29/21 -MF 06/29/21 - Safe Environment -- Arm Band Checked;Notified RN;Session Completed Bedside - -- [employer] Missed Visit Reason -- -- -- Pt off the floor. - Family/Caregiver Present -- No -MF -- Pain Assessment 0-10 -CJA (r) CJ (c) No/denies pain - -- Pain Score 0 - No pain -CJA (r) CJ (c) -- -- [employer] Recommendation (Add'l Services) Other pending [facility] [place] -CJA (r) CJ (c) Inpatient Rehab Facility - -- [employer] WORK[employer] Frequency of Services Other (comment) pending [facility] [place] -JAZZMINE (r) GABRIELA (c) 2-4x/wk - -- [employer] - Next Appointment -- 06/30/21 - -- Diet Solids Recommendation Dysphagia diet-Phase 1 pending [facility] [place] -JAZZMINE (r) GABRIELA (c) Dysphagia diet-Phase 1 - -- Diet Liquids Recommendations NPO for liquids pending [facility] [place] -JAZZMINE (r) GABRIELA (c) NPO for liquids - -- Recommended Form of Medications Crushed;With puree pending [facility] [place] -JAZZMINE (r) GABRIELA (c) Crushed;With puree - -- Assistance with feeding/swallowing Full supervision with meals -JAZZMINE (r) GABRIELA (c) Full supervision with meals - -- Compensatory Strategies/Modifications Small bites;Slow rate -JAZZMINE (r) GABRIELA (c) Small bites;Slow rate - -- Postural Recommendations Upright -JAZZMINE (stewart) GABRIELA (c) Upright 90 degrees - -- Dysphagia Diagnosis -- Moderate oral stage dysphagia;Mild to moderate pharyngeal stage dysphagia - -- Swallow- Next Appointment 07/04/21 -JAZZMINE (stewart) GABRIELA (c) 06/30/21 - 06/30/21 - User Troy (r) = Recorded By, (t) = Taken By, (c) = Cosigned By Initials Name Effective Dates Luisa Angel 04/19/21 - Queta Pires, [employer] WORKER 07/12/20 - Chyna Tucker, JOE 04/18/20 - Clinical Swallow Study No documentation. [employer] WORKER Notes Notes from 07/03/21 through 07/05/21 No notes of this type exist for this encounter. * [facility] Note - Lizzeth Huitron MSW - 07/05/2021 4:00 PM CDT Patient Information: Meds and Admin Active Only All Meds/Most Recent Administrations All Meds/Most Recent Administrations sodium chloride 0.9% flush 0.5-20 mL [[id number]] Ordering Provider: Belinda Shaffer MD PhD Status: Verified Ordered On: 06/11/211914 Start: 06/11/212199 Dose (Remaining/Total): 0.5-20 mL (--/--) Route: intra-catheter Frequency: Every 8 hours scheduled Rate/Duration: -- / -- Admin Instructions: Flush volume based on line type and size. Timestamps Action Dose Route Other Information 07/05/21 1400 Given 10 mL intra-catheter Performed by: Mercy Guajardo RN sodium chloride 0.9% flush 0.5-20 mL [[id number]] Ordering Provider: Belinda Shaffer MD PhD Status: Verified Ordered On: 06/11/211914 Start: 06/11/211912 Dose (Remaining/Total): 0.5-20 mL (--/--) Route: intra-catheter Frequency: As needed Rate/Duration: -- / -- Admin Instructions: Flush volume based on line type and size. Flush before and after each use. Timestamps Action Dose Route Other Information 06/25/21 0745 Given 10 mL intra-catheter Performed by: Lenka De Santiago RN labetaloL (NORMODYNE,TRANDATE) injection 10 mg [[id number]] Ordering Provider: Prosper Rodrigues MD Status: Completed (Past End Date/Time) Ordered On: 06/12/21420 Starts/Ends: 06/12/21 0500 - 06/12/21 0437 Dose (Remaining/Total): 10 mg (0/1) Route: intravenous Frequency: Once Rate/Duration: 60 mL/hr / 2 Minutes Timestamps Action Dose / Rate / Duration Route Other Information 06/12/21434 Given 10 mg 60 mL/hr 2 Minutes intravenous Performed by: Ihsan Cardenas RN Scanned Package: 71443-716-80 labetaloL (NORMODYNE,TRANDATE) injection 10 mg [[id number]] Ordering Provider: Cassie Trent NP Status: Completed (Past End Date/Time) Ordered On: 06/12/21 112 Starts/Ends: 06/12/21 1200 - 06/12/21 112 Dose (Remaining/Total): 10 mg (0/1) Route: intravenous Frequency: Once Rate/Duration: 60 mL/hr / 2 Minutes Line Med Link Info Comment Peripheral IV 06/12/21 20 G Right Forearm 06/12/21 1125 by Suyapa Shi RN -- Timestamps Action Dose / Rate / Duration Route Other Information 06/12/21 112 Given 10 mg 60 mL/hr 2 Minutes intravenous Performed by: Suyapa Shi RN magnesium sulfate 4 g/100 mL in water (premix) 4 g [[id number]] Ordering Provider: Ying Thompson MD Status: Completed [...] Shi RN pravastatin (PRAVACHOL) tablet 40 mg [[id number]] Ordering Provider: Cassie Trent NP Status: Dispensed Ordered On: 06/12/211125 Start: 06/13/21 0900 Dose (Remaining/Total): 40 mg (--/--) Route: feeding tube Frequency: Daily Rate/Duration: -- / -- Timestamps Action Dose Route Other Information 07/05/21 075 Given 40 mg feeding tube Performed by: Mercy Guajardo RN Scanned Package: 1204-7521-70, 5306-4633-95 zitvjqgq-cqn-fdnksmi gluconate (CENTRUM) 0.6 mg iron/mL oral liquid 15 mL [[id number]] Ordering Provider: Cassie Trent NP Status: Dispensed Ordered On: 06/12/21 120 Start: 06/12/21 1245 Dose (Remaining/Total): 15 mL (--/--) Route: feeding tube Frequency: Daily Rate/Duration: -- / -- Timestamps Action Dose Route Other Information 07/05/21 075 Given 15 mL feeding tube Performed by: Mercy Guajardo RN Scanned Package: 7566-2904-25 potassium chloride (KLOR-CON) packet 40 mEq [[id number]] Ordering Provider: Cassie Trent NP Status: Completed (Past End Date/Time) Ordered On: 06/12/211443 Starts/Ends: 06/12/21 1515 - 06/12/211458 Dose (Remaining/Total): 40 mEq (0/1) Route: feeding tube Frequency: Once Rate/Duration: -- / -- Admin Instructions: Dissolve one packet in at least 120 mL of cold water or other beverage prior toadministration. Timestamps Action Dose Route Other Information 06/12/211458 Given 40 mEq feeding tube Performed by: Suyapa Shi RN Scanned Package: [address]-1, [address]-6 metoprolol tartrate (LOPRESSOR) immediate release tablet 25 mg [[id number]] Ordering Provider: Cassie Trent NP Status: Completed (Past End Date/Time) Ordered On: 06/12/211447 Starts/Ends: 06/12/211529 - 06/12/211457 Dose (Remaining/Total): 25 mg (0/1) Route: feeding tube Frequency: Once Rate/Duration: -- / -- Timestamps Action Dose Route Other Information 06/12/211457 Given 25 mg feeding tube Performed by: Suyapa Shi RN Scanned Package: 62046-759-53 metoprolol (LOPRESSOR) injection 5 mg [[id number]] Ordering Provider: Cassie Trent NP Status: Completed (Past End Date/Time) Ordered On: 06/12/211453 Starts/Ends: 06/12/21 153 - 06/12/211458 Dose (Remaining/Total): 5 mg (0/1) Route: intravenous Frequency: Once Rate/Duration: -- / 1 Minutes Line Med Link Info Comment Peripheral IV 06/12/21 20 G Right Forearm 06/12/211457 by Suyapa Shi RN -- Timestamps Action Dose / Duration Route Other Information 06/12/211457 Given 5 mg 1 Minutes intravenous Performed by: Suyapa Shi RN Scanned Package: 3715-0687-37 acetaminophen (TYLENOL) tablet 650 mg [[id number]] Ordering Provider: Cassie Trent NP Status: Dispensed Ordered On: 06/12/211551 Start: 06/12/21 155 Dose (Remaining/Total): 650 mg (--/--) Route: feeding tube Frequency: Every 4 hours PRN Rate/Duration: -- / -- Timestamps Action Dose Route Other Information 06/18/21 0035 Given 650 mg feeding tube Performed by: Little Hawkins RN Scanned Package: 30201-056-38, 77458-737-46 thiamine (VITAMIN B-1) 500 mg in sodium chloride 0.9% 100 mL IVPB [[id number]] Ordering Provider: Cassie Trent NP Status: Completed (Past End Date/Time) Ordered On: 06/12/211551 Starts/Ends: 06/12/211629 - 06/14/21 0907 Dose (Remaining/Total): 500 mg [...] in sodium chloride 0.9% 100 mL IVPB [[id number]] Ordering Provider: Cassie Trent NP Status: Completed (Past End Date/Time) Ordered On: 06/12/211551 Starts/Ends: 06/14/21 163 - 06/18/21 0839 Dose (Remaining/Total): 250 mg [...] RN Lactated Ringer's (LR) bolus 500 mL [[id number]] Ordering Provider: Katia Champion NP Status: Completed (Past End Date/Time) Ordered On: 06/12/21 1711 Starts/Ends: 06/12/21 1745 - 06/12/21 1830 Dose (Remaining/Total): 500 mL (0/1) Route: intravenous Frequency: Once Rate/Duration: 500 mL/hr / 1 Hours Timestamps Action Dose / Rate / Duration Route Other Information 06/12/21 1730 New Bag 500 mL 500 mL/hr 1 Hours intravenous Performed by: Suyapa Shi RN amiodarone (NEXTERONE) 150 mg/100 mL (1.5 mg/mL) in dextrose (premix) 150 mg [[id number]] Ordering Provider: Candace Cummings NP Status: Completed [...] Performed by: Aby Toney RN Scanned Package: 05089-361-41 chlorhexidine (PERIDEX) 0.12 % solution 15 mL [[id number]] Ordering Provider: Cassie Trent NP Status: Completed (Past End Date/Time) Ordered On: 06/13/21 0748 Starts/Ends: 06/13/21 0830 - 06/13/21 0820 Dose (Remaining/Total): 15 mL (0/1) Route: swish & spit Frequency: Once Rate/Duration: -- / -- Timestamps Action Dose Route Other Information 06/13/21 0820 Given 15 mL swish & spit Performed by: Latha Chaves RN Scanned Package: 04453-434-32 amiodarone (PACERONE) tablet 400 mg [[id number]] Ordering Provider: Katia Champion NP Status: Completed (Past End Date/Time) Ordered On: 06/13/21 1225 Starts/Ends: 06/14/21 0900 - 06/18/212110 Dose (Remaining/Total): 400 mg (0/15) Route: feeding tube Frequency: 3 times daily Rate/Duration: -- / -- Timestamps Action Dose Route Other Information 06/18/212110 Given 400 mg feeding tube Performed by: Little Hawkins RN Scanned Package: 7036-8953-80, 5791-7124-93, 6717-7074-70, 9441-6058-17 Lactated Ringer's (LR) bolus 500 mL [[id number]] Ordering Provider: Katia Champion NP Status: Completed (Past End Date/Time) Ordered On: 06/13/21 1228 Starts/Ends: 06/13/21 1300 - 06/13/21 1338 Dose (Remaining/Total): 500 mL (0/1) Route: intravenous Frequency: Once Rate/Duration: 500 mL/hr / 1 Hours Timestamps Action Dose / Rate / Duration Route Other Information 06/13/21 1238 New Bag 500 mL 500 mL/hr 1 Hours intravenous Performed by: Latha Chaves RN Scanned Package: 6684-7158-68 levETIRAcetam (KEPPRA) tablet 500 mg [[id number]] Ordering Provider: Cassie Trent NP Status: Completed (Past End Date/Time) Ordered On: 06/13/21 1309 Starts/Ends: 06/13/21 1345 - 06/19/21 0256 Dose (Remaining/Total): 500 mg (0/12) Route: feeding tube Frequency: 2 times daily Rate/Duration: -- / -- Timestamps Action Dose Route Other Information 06/19/21 025 Given 500 mg feeding tube Performed by: Little Hawkins RN Comments: loss of NG Scanned Package: 26808-855-18 perflutren protein-a (OPTISON) 0.22 mg/mL injection - ADS Override Pull [[id number]] Status: Completed (Past End Date/Time) Ordered On: 06/13/21 160 Starts/Ends: 06/13/21 160 - 06/13/211628 Dose (Remaining/Total): -- (0/1) Route: -- Frequency: -- Rate/Duration: -- / -- Admin Instructions: Created by cabinet override Note to pharmacy: Created by cabinet override Timestamps Action Dose / Rate / Duration Route / Site / Linked Line Other Information 06/13/211628 Contrast Given -- -- Performed by: Latha Chaves RN furosemide (LASIX) 10 mg/mL injection 20 mg [[id number]] Ordering Provider: Candace Cummings NP Status: Completed (Past End Date/Time) Ordered On: 06/14/21126 Starts/Ends: 06/14/21199 - 06/14/21136 Dose (Remaining/Total): 20 mg (0/1) Route: intravenous Frequency: Once Rate/Duration: -- / -- Admin Instructions: For IV push: administer doses < 160 mg at a rate of 20 -40 mg/min. Doses >/= 160 mg should be administered no faster than 4 mg/min. Room temperature only Timestamps Action Dose Route Other Information 06/14/21136 Given 20 mg intravenous Performed by: Aby Toney RN Scanned Package: 9293-1805-79 gadoterate meglumine (DOTAREM) 0.5 mmol/mL injection 15 mL [[id number]] Ordering Provider: Cassie Trent NP Status: Completed (Past End Date/Time) Ordered On: 06/14/21242 Starts/Ends: 06/14/21242 - 06/14/21242 Dose (Remaining/Total): 15 mL (0/1) Route: intravenous Frequency: Once in imaging Rate/Duration: -- / -- Line Med Link Info Comment Peripheral IV 06/12/21 20 G Right Forearm 06/14/21242 by Debbi Castano, RT -- Timestamps Action Dose Route Other Information 06/14/21242 Contrast Given 15 mL intravenous Performed by: Debbi Castano RT Scanned Package: [address]-8 magnesium sulfate 2 g/50 mL in water (premix) 2 g [[id number]] Ordering Provider: Cassie Trent NP Status: Completed (Past End Date/Time) Ordered On: 06/14/21953 Starts/Ends: 06/14/21 1030 - 06/14/21 1114 Dose (Remaining/Total): 2 g (0/1) Route: intravenous Frequency: Once Rate/Duration: -- / 60 Minutes Timestamps Action Dose / Duration Route Other Information 06/14/21 1014 New Bag 2 g 60 Minutes intravenous Performed by: Latha Chaves RN Scanned Package: 4582-4957-37 potassium chloride (KLOR-CON) packet 40 mEq [[id number]] Ordering Provider: Cassie Trent NP Status: Completed [...] Timestamps Action Dose Route Other Information 06/14/21 101 Given 40 mEq feeding tube Performed by: Latha Chaves RN Scanned Package: [address]-0, [address]-2 sodium chloride 0.9% 0.9% infusion - ADS Override Pull [[id number]] Status: Dispensed (Past End Date/Time) Ordered On: 06/15/21204 Starts/Ends: 06/15/21204 - 06/15/21 1414 Dose (Remaining/Total): -- (04/08) Route: -- Frequency: -- Rate/Duration: -- / -- Admin Instructions: Created by cabinet override Note to pharmacy: Created by cabinet override (No admins scheduled or recorded for this medication) rocuronium (ZEMURON) 10 mg/mL injection - ADS Override Pull [[id number]] Status: Dispensed (Past End Date/Time) Ordered On: 06/15/21212 Starts/Ends: 06/15/21212 - 06/15/211413 Dose (Remaining/Total): -- (04/08) Route: -- Frequency: -- Rate/Duration: -- / -- Admin Instructions: Created by cabinet override Note to pharmacy: Created by cabinet override WARNING: Causes respiratory paralysis. Patient mustbe ventilated. (No admins scheduled or recorded for this medication) etomidate (AMIDATE) 2 mg/mL injection - ADS Override Pull [[id number]] Status: Completed (Past End Date/Time) Ordered On: 06/15/21212 Starts/Ends: 06/15/21212 - 06/15/21233 Dose (Remaining/Total): -- (0) Route: -- Frequency: -- Rate/Duration: -- / -- Admin Instructions: Created by cabinet override Note to pharmacy: Created by cabinet [employer] Timestamps Action Dose / Rate / Duration Route / Site / Linked Line Other Information 06/15/21233 Given -- -- Performed by: Aby Toney RN fentaNYL (SUBLIMAZE) 50 mcg/mL preservative free injection - ADS Override Pull [[id number]] Status: Completed (Past End Date/Time) Ordered On: 06/15/21213 Starts/Ends: 06/15/21213 - 06/15/21237 Dose (Remaining/Total): -- (0) Route: -- Frequency: -- Rate/Duration: -- / -- Admin Instructions: Created by cabinet override Note to pharmacy: Created by [employer] Timestamps Action Dose Route / Site / Linked Line Other Information 06/15/21237 Given 100 mcg -- Performed by: Aby Toney RN phenylephrine (CON-SYNEPHRINE) 1 mg/10 mL (100 mcg/mL) in sodium chloride 0.9% (premix) - ADS Override Pull [[id number]] Status: Completed (Past End Date/Time) Ordered On: 03/10/22 0219 Starts/Ends: 06/15/21 0219 - 06/15/21 0237 Dose (Remaining/Total): -- (0) Route: -- Frequency: -- Rate/Duration: -- / -- Admin Instructions: Created by cabinet override Note to pharmacy: Created by cabinet override For IV push, administer over 30 seconds. Timestamps Action Dose Route / Site / Linked Line Other Information 06/15/21 0237 Given 200 mcg -- Performed by: Aby Toney RN fentaNYL (SUBLIMAZE) 50 mcg/mL preservative free injection - ADS Override Pull [[id number]] Status: Dispensed (Past End Date/Time) Ordered On: 06/15/21239 Starts/Ends: 06/15/21239 - 06/15/21 1444 Dose (Remaining/Total): -- (04/08) Route: -- Frequency: -- Rate/Duration: -- / -- Admin Instructions: Created by cabinet override Note to pharmacy: Created by cabinet override (No admins scheduled or recorded for this medication) fentaNYL (SUBLIMAZE) 50 mcg/mL preservative free injection - ADS Override Pull [[id number]] Status: Completed (Past End Date/Time) Ordered On: 06/15/21 025 Starts/Ends: 06/15/21 0254 - 06/15/21 0316 Dose (Remaining/Total): -- (0) Route: -- Frequency: -- Rate/Duration: -- / -- Admin Instructions: Created by cabinet override Note to pharmacy: Created by cabinet override Timestamps Action Dose Route / Site / Linked Line Other Information 06/15/21315 Given 50 mcg -- Performed by: Aby Toney RN sodium chloride 5% (HYPERTONIC) 5 % solution - ADS Override Pull [[id number]] Status: Dispensed (Past End Date/Time) Ordered On: 06/15/211108 Starts/Ends: 06/15/211108 - 06/15/21 2314 Dose (Remaining/Total): -- (04/08) Route: -- Frequency: -- Rate/Duration: -- / -- Admin Instructions: Created by cabinet override Note to pharmacy: Created by cabinet override (No admins scheduled or recorded for this medication) sodium chloride 0.9% 0.9% infusion - ADS Override Pull [[id number]] Status: Dispensed (Past End Date/Time) Ordered On: 06/15/21 1248 Starts/Ends: 06/15/21 1248 - 06/16/21 0059 Dose (Remaining/Total): -- (04/08) Route: -- Frequency: -- Rate/Duration: -- / -- Admin Instructions: Created by cabinet override Note to pharmacy: Created by cabinet override (No admins scheduled or recorded for this medication) metoprolol tartrate immediate release capsule 12.5 mg [[id number]] Ordering Provider: Candido Uribe MD Status: Dispensed (Past End Date/Time) Ordered On: 06/16/21 1136 Starts/Ends: 06/16/21 1215 - 06/17/21 1215 Dose (Remaining/Total): 12.5 mg (04/08) Route: oral Frequency: Once Rate/Duration: -- / -- (No admins scheduled or recorded for this medication) potassium chloride (KLOR-CON) packet 40 mEq [[id number]] Ordering Provider: Little Hawkins RN Status: Completed (Past End Date/Time) Ordered On: 06/16/212320 Starts/Ends: 06/17/21 0000 - 06/17/21 0214 Dose (Remaining/Total): 40 mEq (0/2) Route: feeding [...] Performed by: Little Hawkins RN Scanned Package: [address]-5, [address]-1 magnesium sulfate 4 g/100 mL in water (premix) 4 g [[id number]] Ordering Provider: Digna Carter NP Status: Completed (Past End Date/Time) Ordered On: 06/16/21 2328 Starts/Ends: 06/17/21 0000 - 06/17/21 0110 Dose (Remaining/Total): 4 g (0/1) Route: intravenous Frequency: Once Rate/Duration: -- / 90 Minutes Line Med Link Info Comment Peripheral IV 06/15/21 20 G Right Antecubital 06/16/212339 by Little Hawkins RN -- Timestamps Action Dose / Duration Route Other Information 06/16/210 New Bag 4 g 90 Minutes intravenous Performed by: Little Hawkins RN Scanned Package: 57836-206-64 ioversoL (OPTIRAY 350) syringe syringe 100 mL [[id number]] Ordering Provider: Patricia Ferrer NP Status: Completed (Past End Date/Time) Ordered On: 06/17/212247 Starts/Ends: 06/17/212247 - 06/17/212257 Dose (Remaining/Total): 100 mL (0/1) Route: intravenous Frequency: Once in imaging Rate/Duration: -- / -- Line Med Link Info Comment Peripheral IV 06/15/21 20 G Left Forearm 06/17/212257 by Dianne Plummer RT -- Timestamps Action Dose Route Other Information 06/17/212257 Contrast Given 95 mL intravenous Performed by: Dianne Plummer, RT potassium chloride (KLOR-CON) packet 40 mEq [[id number]] Ordering Provider: Candace Cummings NP Status: Completed (Past End Date/Time) Ordered On: 06/19/21 0050 Starts/Ends: 06/19/21 0200 - 06/19/21447 Dose (Remaining/Total): 40 mEq (0/2) [...] Performed by: Little Hawkins RN Scanned Package: [address]-7, [address]-4 magnesium sulfate 2 g/50 mL in water (premix) 2 g [[id number]] Ordering Provider: Candace Cummings NP Status: Completed (Past End Date/Time) Ordered On: 06/19/21 0050 Starts/Ends: 06/19/21 0130 - 06/19/21 0319 Dose (Remaining/Total): 2 g (0/1) Route: intravenous Frequency: Once Rate/Duration: -- / 60 Minutes Line Med Link Info Comment Peripheral IV 06/15/21 20 G Right Antecubital 06/19/21218 by Little Hawkins RN -- Timestamps Action Dose / Duration Route Other Information 06/19/21218 New Bag 2 g 60 Minutes intravenous Performed by: Little Hawkins RN Scanned Package: 5085-4536-69 heparin 5,000 unit/mL injection 5,000 Units [[id number]] Ordering Provider: Wellington Crenshaw NP Status: Completed (Past End Date/Time) Ordered On: 06/19/211724 Starts/Ends: 06/19/212099 - 06/19/211999 Dose (Remaining/Total): 5,000 Units (0/1) Route: subcutaneous Frequency: Once Rate/Duration: -- / -- Timestamps Action Dose Route / Site Other Information 06/19/211999 Given 5,000 Units subcutaneous Left Lower Abdomen Performed by: Zaria Melendez RN Scanned Package: 9438-3197-03 pantoprazole (PROTONIX) 4 mg/mL injection 40 mg [[id number]] Ordering Provider: Mily Cuevas NP Status: Dispensed [...] Performed by: Mercy Guajardo RN Scanned Package: 70780-440-62 perflutren protein-a (OPTISON) 0.22 mg/mL injection - ADS Override Pull [[id number]] Status: Dispensed (Past End Date/Time) Ordered On: 06/20/211613 Starts/Ends: 06/20/211613 - 06/21/21 0414 Dose (Remaining/Total): -- (04/08) Route: -- Frequency: -- Rate/Duration: -- / -- Admin Instructions: Created by cabinet override Note to pharmacy: Created by cabinet override (No admins scheduled or recorded for this medication) potassium chloride (KLOR-CON) packet 40 mEq [[id number]] Ordering Provider: Candace Cummings NP Status: Completed (Past End Date/Time) Ordered On: 06/20/212241 Starts/Ends: 06/20/212314 - 06/21/21 0009 Dose (Remaining/Total): 40 mEq (01) Route: feeding tube Frequency: Once Rate/Duration: -- [...] Performed by: Sharonda Manrique RN Scanned Package: [address]-1, [address]-1 ramelteon (ROZEREM) tablet 8 mg [[id number]] Ordering Provider: Tamiko Ray NP Status: Dispensed Ordered On: 06/21/21 0844 Start: 06/21/21 1800 Dose (Remaining/Total): 8 mg (--/--) Route: feeding tube Frequency: Nightly Rate/Duration: -- / -- Timestamps Action Dose Route Other Information 07/04/21 1623 Given 8 mg feeding tube Performed by: Mercy Guajardo RN Scanned Package: 48644-730-54 magnesium sulfate 4 g/100 mL in water (premix) 4 g [[id number]] Ordering Provider: Tamiko Ray NP Status: Completed (Past End Date/Time) Ordered On: 06/21/21 1007 Starts/Ends: 06/21/21 1045 - 06/21/21 1231 Dose (Remaining/Total): 4 g (0/1) Route: intravenous Frequency: Once Rate/Duration: -- / 90 Minutes Timestamps Action Dose / Duration Route Other Information 06/21/21 1101 New Bag 4 g 90 Minutes intravenous Performed by: Hillary De La O RN Scanned Package: 21092-518-64 thiamine (VITAMIN B1) tablet 100 mg [[id number]] Ordering Provider: Jair Jay MD Status: Dispensed Ordered On: 06/22/21 1107 Start: 06/22/21 1145 Dose (Remaining/Total): 100 mg (--/--) Route: feeding tube Frequency: Daily Rate/Duration: -- / -- Timestamps Action Dose Route Other Information 07/05/21 0754 Given 100 mg feeding tube Performed by: Mercy Guajardo RN Scanned Package: [id number] albuterol 2.5 mg/0.5 mL nebulizer solution 1.25 mg [[id number]] Ordering Provider: Jair Jay MD Status: Dispensed Ordered On: 06/22/21 1113 Start: 06/22/21 1113 Dose (Remaining/Total): 1.25 mg (--/--) Route: nebulization Frequency: Every 6 hours PRN (correspondence transcriber) Rate/Duration: -- / -- (No admins scheduled or recorded for this medication) traZODone (DESYREL) tablet 100 mg [[id number]] Ordering Provider: Ciarra Jama NP Status: Dispensed Ordered On: 06/23/211104 Start: 06/23/21 2100 Dose (Remaining/Total): 100 mg (--/--) Route: feeding tube Frequency: Nightly Rate/Duration: -- / -- Timestamps Action Dose Route Other Information 07/04/211957 Given 100 mg feeding tube Performed by: Hillary Root RN Scanned Package: 84537-442-15 terazosin (HYTRIN) capsule 10 mg [[id number]] Ordering Provider: Ciarra Jama NP Status: Dispensed Ordered On: 06/23/211106 Start: 06/23/212099 Dose (Remaining/Total): 10 mg (--/--) Route: feeding tube Frequency: Nightly Rate/Duration: -- / -- Timestamps Action Dose Route Other Information 07/04/211957 Given 10 mg feeding tube Performed by: Hillary Root RN Scanned Package: 68581-090-79, 94244-581-79 docusate (COLACE) 10 mg/mL oral liquid 100 mg [[id number]] Ordering Provider: Sada العلي NP Status: Dispensed Ordered On: 06/26/21803 Start: 06/26/21 0900 Dose (Remaining/Total): 100 mg (--/--) Route: feeding tube Frequency: Daily Rate/Duration: -- / -- Timestamps Action Dose Route Other Information 07/05/21754 Given 100 mg feeding tube Performed by: Mercy Guajardo RN Scanned Package: 68577-658-79 senna 1.76 mg/mL syrup 8.8 mg [[id number]] Ordering Provider: Sada العلي NP Status: Dispensed Ordered On: 06/26/21803 Start: 06/26/21 0900 Dose (Remaining/Total): 8.8 mg (--/--) Route: feeding tube Frequency: 2 times daily Rate/Duration: -- / -- Timestamps Action Dose Route Other Information 07/05/21754 Given 8.8 mg feeding tube Performed by: Mercy Guajardo RN Scanned Package: 49251-421-27 barium sulfate (VARIBAR THIN LIQUID) 81 % (w/w) thin liquid [[id number]] Ordering Provider: Patricia Fererr NP Status: Completed (Past End Date/Time) Ordered On: 06/26/217 Starts/Ends: 06/26/21 1311 - 06/26/21 1311 Dose (Remaining/Total): -- (0/1) Route: oral Frequency: Once in imaging Rate/Duration: -- / -- Timestamps Action Dose Route Other Information 06/26/21 131 Contrast Given 15 mL oral Performed by: Cielo Beltre RT barium sulfate (VARIBAR NECTAR) 40 % (w/v) nectar [[id number]] Ordering Provider: Patricia Ferrer NP Status: Completed (Past End Date/Time) Ordered On: 06/26/211316 Starts/Ends: 06/26/21 1313 - 06/26/21 1313 Dose (Remaining/Total): -- (0/1) Route: oral Frequency: Once in imaging Rate/Duration: -- / -- Admin Instructions: Shake well Timestamps Action Dose Route Other Information 06/26/211312 Contrast Given 20 mL oral Performed by: Cielo Beltre RT barium sulfate (VARIBAR PUDDING) 40 % (w/v), 30% (w/w) pudding [[id number]] Ordering Provider: Patricia Ferrer NP Status: Completed (Past End Date/Time) Ordered On: 06/26/211316 Starts/Ends: 06/26/21 1314 - 06/26/21 1314 Dose (Remaining/Total): -- (0/1) Route: oral Frequency: Once in imaging Rate/Duration: -- / -- Timestamps Action Dose Route Other Information 06/26/21 131 Contrast Given 15 mL oral Performed by: Cielo Beltre RT barium sulfate (VARIBAR) 40 % (w/v) 29% (w/w) suspension 250 mL [[id number]] Ordering Provider: Patricia Ferrer NP Status: Completed [...] g/50 mL in water (premix) 2 g [[id number]] Ordering Provider: Aliya Vincent NP Status: Completed (Past End Date/Time) Ordered On: 06/27/21 0120 Starts/Ends: 06/27/21 0200 - 06/27/21 0431 Dose (Remaining/Total): 2 g (0/1) Route: intravenous Frequency: Once Rate/Duration: -- / 60 Minutes Timestamps Action Dose / Duration Route Other Information 06/27/21 0331 New Bag 2 g 60 Minutes intravenous Performed by: Edie Hameed RN Scanned Package: 1435-9075-72 bisacodyL (DULCOLAX) suppository 10 mg [[id number]] Ordering Provider: Donavan Boo MD Status: Completed (Past End Date/Time) Ordered On: 06/27/21 1247 Starts/Ends: 06/27/21 1330 - 06/27/21 1407 Dose (Remaining/Total): 10 mg (0/1) Route: rectal Frequency: Once Rate/Duration: -- / -- Timestamps Action Dose Route Other Information 06/27/21 1407 Given 10 mg rectal Performed by: Emerita Boo, GAURAV Scanned Package: 4774-4600-61 miconazole (SECURA THICK) 2 % cream [[id number]] Ordering Provider: Andreia Ellis MD Status: Dispensed Ordered On: 06/27/21 1428 Start: 06/27/21 2100 Dose (Remaining/Total): -- (--/--) Route: topical Frequency: 2 times daily Rate/Duration: -- / -- Question Answer Comment Apply to affected area:: perineum buttocks -- other -- Timestamps Action Dose / Rate / Duration Route Other Information 07/05/21 0759 Given -- topical Performed by: Mercy Guajardo RN Scanned Package: 18965-299-41 metroNIDAZOLE (FLAGYL) tablet 500 mg [[id number]] Ordering Provider: Tamiko Ray NP Status: Completed (Past End Date/Time) Ordered On: 06/28/21 1414 Starts/Ends: 06/28/212199 - 06/29/212112 Dose (Remaining/Total): 500 mg (0/4) Route: feeding tube Frequency: Every 8 hours scheduled Rate/Duration: -- / -- Timestamps Action Dose Route Other Information 06/29/212112 Given 500 mg feeding tube Performed by: Maria Del Rosario Cai RN Scanned Package: 81637-797-48, 89147-154-68 sodium chloride 0.9% solution - ADS Override Pull [[id number]] Status: Completed (Past End Date/Time) Ordered On: 06/30/2159 Starts/Ends: 06/30/2159 - 06/30/21926 Dose (Remaining/Total): -- (0/1) Route: -- Frequency: -- Rate/Duration: -- / -- Admin Instructions: Created by cabinet override Note to pharmacy: Created by cabinet override Timestamps Action Dose / Rate / Duration Route / Site / Linked Line Other Information 06/30/21926 Given -- -- Performed by: Peggy Deng RN Comments: for pantoprozole reconstitution diatrizoate meglumine-diatrizoate sodium (GASTROGRAFIN/MD-GASTROVIEW) 66-10 % solution 30 mL [[id number]] Ordering Provider: Julieta Tirado NP Status: Completed (Past End Date/Time) Ordered On: 06/30/21 1509 Starts/Ends: 06/30/21 1509 - 06/30/21 151 Dose (Remaining/Total): 30 mL (0/1) Route: nasogastric tube Frequency: Once in imaging Rate/Duration: -- / -- Timestamps Action Dose Route Other Information 06/30/21 1510 Contrast Given 20 mL nasogastric tube Performed by: Aimee Andersen, potassium chloride 20 mEq/260 mL in sodium chloride 0.9% (premix) 20 mEq [[id number]] Ordering Provider: Aby Quiñonez MD Status: Completed [...] (BREO ELLIPTA) 100-25 mcg/dose inhaler 1 puff [[id number]] Ordering Provider: Jahaira Brown NP Status: Dispensed Ordered On: 07/01/21 1349 Start: 07/01/21 1430 Dose (Remaining/Total): 1 puff (--/--) Route: inhalation Frequency: Daily (correspondence transcriber) Rate/Duration: -- / -- Admin Instructions: Rinse mouth with water after use. Do not swallow. Timestamps Action Dose Route Other Information 07/03/21 0910 Given 1 puff inhalation Performed by: Vy Cabrera, BRAILLE TYPIST Scanned Package: 9169-9397-66 magnesium oxide (MAG-OX) tablet 400 mg [[id number]] Ordering Provider: Elizabeth Persaud NP Status: Verified (Past End Date/Time) Ordered On: 07/04/21 0641 Starts/Ends: 07/04/21 0715 - 07/05/21 0715 Dose (Remaining/Total): 400 mg (1/1) Route: oral Frequency: Once Rate/Duration: -- / -- Admin Instructions: 1 tablet = Magnesium oxide 400 mg = 241.3 mg elemental magnesium (No admins scheduled or recorded for this medication) ceFAZolin (ANCEF) 2,000 mg/20 mL in sterile water (premix) 2,000 mg [[id number]] Ordering Provider: Buffy Hidalgo MD Status: Completed (Past End Date/Time) Ordered On: 07/04/21 1238 Starts/Ends: 07/04/21 1315 - 07/04/212033 Dose (Remaining/Total): 2,000 mg (0/2) Route: intravenous Frequency: Every 8 hours Rate/Duration: 400 mL/hr / 3 Minutes Admin Instructions: Beginning 8 hours after pre-op dose. Line Med Link Info Comment Peripheral IV 07/04/21 16 G Right Hand 07/04/21 1623 by Mercy Guajardo RN -- Timestamps Action Dose / Rate / Duration Route Other Information 07/04/212030 Given 2,000 mg 400 mL/hr 3 Minutes intravenous Performed by: Hillary Root RN heparin 5,000 unit/mL injection 5,000 Units [[id number]] Ordering Provider: Elizabeth Persaud NP Status: Dispensed Ordered On: 07/04/21 1348 Start: 07/04/212199 Dose (Remaining/Total): 5,000 Units (--/--) Route: subcutaneous Frequency: Every 8 hours scheduled Rate/Duration: -- / -- Timestamps Action Dose Route / Site Other Information 07/05/21 1413 Given 5,000 Units subcutaneous Left Lower Abdomen Performed by: Mercy Guajardo RN Scanned Package: 9768-1090-80 metoprolol (LOPRESSOR) injection 5 mg [[id number]] Ordering Provider: Vy Munoz NP Status: Completed (Past End Date/Time) Ordered On: 07/04/211951 Starts/Ends: 07/04/212029 - 07/04/212026 Dose (Remaining/Total): 5 mg (0/1) Route: intravenous Frequency: Once Rate/Duration: -- / 1 Minutes Timestamps Action Dose / Duration Route Other Information 07/04/212025 Given 5 mg 1 Minutes intravenous Performed by: Hillary Root RN Scanned Package: 22041-798-40 Lactated Ringer's (LR) bolus 1,000 mL [[id number]] Ordering Provider: Vy Munoz NP Status: Completed (Past End Date/Time) Ordered On: 07/05/21 0136 Starts/Ends: 07/05/21 0215 - 07/05/21 0648 Dose (Remaining/Total): 1,000 mL (0/1) Route: intravenous Frequency: Once Rate/Duration: 250 mL/hr / 4 Hours Timestamps Action Dose / Rate / Duration Route Other Information 07/05/21 0248 New Bag 1,000 mL 250 mL/hr 4 Hours intravenous Performed by: Hillary Root, GAURAV Scanned Package: 9029-0355-34 metoprolol (LOPRESSOR) tablet 100 mg [[id number]] Ordering Provider: Vy Munoz NP Status: Dispensed Ordered On: 07/05/21 0541 Start: 07/05/21 0900 Dose (Remaining/Total): 100 mg (--/--) Route: feeding tube Frequency: 2 times daily Rate/Duration: -- / -- Timestamps Action Dose Route Other Information 07/05/21 0754 Given 100 mg feeding tube Performed by: Mercy Guajardo RN Scanned Package: 00554-508-62 barium sulfate (VARIBAR THIN LIQUID) 81 % (w/w) thin liquid [[id number]] Ordering Provider: Elizabeth Persaud NP Status: Completed (Past End Date/Time) Ordered On: 07/05/211443 Starts/Ends: 07/05/211441 - 07/05/211446 Dose (Remaining/Total): -- (0/1) Route: oral Frequency: Once in imaging Rate/Duration: -- / -- Timestamps Action Dose Route Other Information 07/05/211446 Contrast Given 25 mL oral Performed by: Lacey Law, barium sulfate (VARIBAR PUDDING) 40 % (w/v), 30% (w/w) pudding [[id number]] Ordering Provider: Elizabeth Persaud NP Status: Completed (Past End Date/Time) Ordered On: 07/05/211443 Starts/Ends: 07/05/21 144 - 07/05/21 144 Dose (Remaining/Total): -- (0/1) Route: oral Frequency: Once in imaging Rate/Duration: -- / -- Timestamps Action Dose Route Other Information 07/05/21 1444 Contrast Given 10 mL oral Performed by: Lacey Law, RT barium sulfate (VARIBAR NECTAR) 40 % (w/v) nectar [[id number]] Ordering Provider: Elizabeth Persaud NP Status: Completed (Past End Date/Time) Ordered On: 07/05/214 Starts/Ends: 07/05/21 1444 - 07/05/21 1446 Dose (Remaining/Total): -- (0/1) Route: oral Frequency: Once in imaging Rate/Duration: -- / -- Admin Instructions: Shake well Timestamps Action Dose Route Other Information 07/05/21 144 Contrast Given 15 mL oral Performed by: [...] 07/05/21 0700 - 07/06/21 0659 Total Total 2796-7672 3152-3089 7001-2998 Total 5117-1020 8398-8693 5712-1312 Total Intake (ml) 178 067 6940 -- -- 2200 -- -- -- -- Output (ml) 500 0 400 50 450 900 250 -- -- 250 Net (ml) -60 422 1800 -50 450 1300 -250 -- -- -250 Patient Lines/Drains/Airways [...] buttocks Assessments Row Name 07/05/21 0755 07/04/21195707/04/21 0807/03/212237 Wound Status Healing Healing Healing Healing Site Assessment Clean;Color appropriate for ethnicity;Dry;[place] Clean;Color appropriate for ethnicity;Dry;[place] Clean;Color appropriate for ethnicity;Dry;[place] Clean;Color appropriate for ethnicity;Dry;[place] Valentine-wound Assessment Blanchable erythema Blanchable erythema Blanchable [...] 07/05/2021 0755 Gait/Transferring 20 ............filed at 07/05/2021 075 Mental Status 15 ............filed at 07/05/2021 0755 [...] bed 07/03 0000 Resting in bed 07/02 2000 Resting in bed 07/02 1930 Resting in bed 07/02 1800 Sleeping 07/02 1700 Sleeping Level of Assistance 07/02 1930 Maximum assist, patient does 25-49% Assistive Device 07/03 1800 None 07/03 1700 None 07/03 1600 None 07/03 1500 None 07/03 1400 None 07/03 1300 None 07/03 1200 None 07/03 1100 None 07/03 1000 None 07/03 0900 None 07/03 0800 None 07/03 0700 None 07/02 1800 None 07/02 1700 None Repositioned 07/05 0755 Turns self 07/04 1958 Turns self;Supine;Pillow support 07/04 0805 Turns self 07/03 2238 Turns self 07/03 0515 Turns self 07/03 0000 Turns self 07/02 2000 Turns self 07/02 193 Left side Positioning Frequency 07/05 0755 Able to turn self 07/04 1957 Able to turn self 07/04 0805 Able to turn self 07/038 Able to turn self 07/03 1900 Able to turn self 07/02 1930 Every 2 hours Head of Bed Elevated 07/05 0755 Self regulated 07/04 1958 HOB less than 20 07/04 1200 HOB less than 20 07/04 1140 HOB less than 20 07/04 1131 HOB Flat 07/04 0805 Self regulated 07/03 2238 HOB 30 07/03 1900 HOB 30 07/02 193 HOB 30 Heels/Feet 07/05 0755 Foot of bed elevated;Heels elevated off bed 07/04 1957 Foot of bed elevated 07/04 0805 Foot of bed elevated;Heels elevated off bed 07/03 223 Foot of bed elevated 07/03 1900 Foot of bed elevated 07/02 193 Heels elevated off bed;Foot of bed elevated Range of Motion 07/05 0755 Active;All extremities 07/04 195 Active;All extremities 07/04 0805 Active;All extremities 07/03 2237 Active;All extremities 07/03 190 Active;All extremities Type of Device 07/05 0755 Mechanical compression 07/04 195 Mechanical compression 07/04 1200 Mechanical compression 07/04 1140 Mechanical compression 07/04 0805 Mechanical compression 07/03 2238 Mechanical compression 07/03 1800 Mechanical compression 07/03 [...] Site 07/05 0755 Right lower extremity 07/04 1957 Right lower extremity 07/04 1140 Right lower [...] Off * Plan of Care - Kirill Dean DPT - 07/05/2021 11:59 AM CDT Problem: Transfers Goal: STG - Patient will transfer sit to and from stand Description: Maritza with LRAD Outcome: Progressing Problem: Transfers Goal: STG - Transfer from bed to chair supervision Outcome: Progressing * Plan of Care - Lizzeth Huitron MSW - 07/05/2021 10:41 AM CDT Per [facility] rounds with Engineer Booster And Exhauster, Clinical Applications Manager, Charge Nurse, and MD, the patient is [...] and IPR list that was emailed to [facility] on 06/29.. Raine stated that she never received IPR/SNF list. SW reviewed Raine's email, [email or web address], and Raine confirmed. SW will resend SNF/IPR list to Raine's email, and reported a follow up call will be made later today to inquire referrals. Raine became frustrated,and said SW will need to call tomorrow. Dispo pending. [...] injury from restraints (Restraint for Interference with Naval Aircrewman Operator) Description: INTERVENTIONS: 1. Identify and document the [...] Free from restraint(s) (Restraint for Interference with Naval Aircrewman Operator) Description: INTERVENTIONS: 1. Q2H and PRN: Assess [...] Resident - Assisting Anesthesiologist: Sumanth Barr MD THERAPEUTIC RECREATION ASSISTANT: Can Floyd III, CRNA Establishment Guide Relief: Cielo Martinez RN; Latha Higginbotham, GAURAV; Candis Wu RN Scrub: Sandra Kaplan RN DATE OF SURGERY : 07/04/2021 Preoperative Diagnosis: Pre-op Diagnosis * Closed nondisplaced intertrochanteric fracture of left femur, initial encounter ([facility]) [S72.145A] Postoperative Diagnosis: Post-op Diagnosis * Closed nondisplaced intertrochanteric fracture of left femur, initial encounter ([facility]) [H22.145A] Procedure(s): Procedure(s) (LRB): INTRAMEDULLARY NAILING FEMUR - ANTEGRADE - INTERTROCHANTERIC (Left) Operative Findings: IMN L IT fx Estimated Blood Loss: 200 mL Intraoperative Fluids: See anaesthesia note Specimens: No specimen collected in procedure Implants: Implant Name Type Inv. Item Serial No. Long Wall Shear Operator Lot No. [id number] No. Used Action DAS & NEPHEW/RICHCO/ORTHO [id number] 44CM 13MM LEFT INTERTROCHANTER 130D 1.5MM NAIL - [id number] DAS & NEPHEW/RICHCO/ORTHO [id number] 44CM 13MM LEFT INTERTROCHANTER 130D 1.5MMNAIL Das & Nephew/Richco/Ortho Left 1 Implanted DAS & NEPHEW/RICHCO/ORTHO INTERTAN 4.5MM 95MM 90MM LAG COMPRESSION INTEGRATED INTERLOCKING [id number] - [id number] DAS & NEPHEW/RICHCO/ORTHO Intertan 4.5mm 95mm 90mm Lag Compression Integrated Interlocking [id number] Das & Nephew/Richco/Ortho Left 1 Implanted DAS & NEPHEW/RICHCO/ORTHO [id number] 5MM 52.5MM LOW PROFILE INTERNAL HEX FEMUR SCREW BONE TRIGEN - [id number] DAS & NEPHEW/RICHCO/ORTHO [id number] 5mm 52.5mm Low Profile Internal Hex Femur Screw Bone Trigen Das & Nephew/Richco/Ortho Left 1 Implanted DAS & NEPHEW/RICHCO/ORTHO [id number] TRIGEN 5MM 62.5MM LOW PROFILE FEMUR SCREW BONE - [id number] DAS & NEPHEW/RICHCO/ORTHO [id number] Trigen 5mm 62.5mm Low Profile Femur Screw [...] and intramedullary nailing SURGEON: Yoanna Delvalle MD CASH APPLICATIONS REPRESENTATIVE: Kirill Munguia MD, Buffy Hidalgo MD ANESTHESIA: general IV FLUIDS AND URINE: See anesthesia record. ESTIMATED BLOOD LOSS: 200 mL. IMPLANTS: Das and Nephew InterTAN ([id number]) with proximal compression and lag screws size [...] nail itself (a Das and Nephew Intertan [id number]) was then inserted over the wire and [...] deep fascia was closed with #1 vicryl [id number] interrupted sutures. The skin was reapproximated with [...] VSS, OR today, pain management Summary:OR today. [place], Corey, masha x1. * Plan of Care - [...] injury from restraints (Restraint for Interference with Naval Aircrewman Operator) Description: INTERVENTIONS: 1. Identify and document the [...] Free from restraint(s) (Restraint for Interference with Naval Aircrewman Operator) Description: INTERVENTIONS: 1. Q2H and PRN: Assess [...] 4:06 PM CDT Per [facility] rounds with Engineer Booster And Exhauster, Clinical Applications Manager, Charge Nurse, and MD, the patient is [...] OR with Ortho pending. PM&R consult and SPRING SALVAGE WORKER re-eval pending. Post-op therapy recs will be needed. SW will follow up with patient/family after OR plan for discharge planning. Insurance: [employer] ADD: 07/06-07/07 SW to follow. PAIGE Knowles [...] to follow commands. Cosigned by Queta Pires, SPRING SALVAGE WORKER at 07/03/2021 4:48 PM CDT * Plan [...] Mod A Outcome: Completed Cosigned by Vane Baker OT at 07/03/2021 3:19 PM CDT * Plan [...] Progressing * Plan of Care - Vy Cabrera, BUNNY - 07/03/2021 9:25 AM CDT Patient ordered [...] injury from restraints (Restraint for Interference with Naval Aircrewman Operator) Description: INTERVENTIONS: 1. Identify and document the [...] Free from restraint(s) (Restraint for Interference with Naval Aircrewman Operator) Description: INTERVENTIONS: 1. Q2H and PRN: Assess [...] injury from restraints (Restraint for Interference with Naval Aircrewman Operator) Description: INTERVENTIONS: 1. Identify and document the [...] Free from restraint(s) (Restraint for Interference with Naval Aircrewman Operator) Description: INTERVENTIONS: 1. Q2H and PRN: Assess [...] injury from restraints (Restraint for Interference with Naval Aircrewman Operator) Description: INTERVENTIONS: 1. Identify and document the [...] Free from restraint(s) (Restraint for Interference with Naval Aircrewman Operator) Description: INTERVENTIONS: 1. Q2H and PRN: Assess [...] injury from restraints (Restraint for Interference with Naval Aircrewman Operator) Description: INTERVENTIONS: 1. Identify and document the [...] Free from restraint(s) (Restraint for Interference with Naval Aircrewman Operator) Description: INTERVENTIONS: 1. Q2H and PRN: Assess [...] Brown NP - 07/01/2021 3:44 PM CDT FISH SMOKER notified by RN that patient had autoremoved [...] injury from restraints (Restraint for Interference with Naval Aircrewman Operator) Description: INTERVENTIONS: 1. Identify and document the [...] Free from restraint(s) (Restraint for Interference with Naval Aircrewman Operator) Description: INTERVENTIONS: 1. Q2H and PRN: Assess [...] injury from restraints (Restraint for Interference with Naval Aircrewman Operator) Description: INTERVENTIONS: 1. Identify and document the [...] Free from restraint(s) (Restraint for Interference with Naval Aircrewman Operator) Description: INTERVENTIONS: 1. Q2H and PRN: Assess [...] verbal cues Outcome: Progressing Cosigned by Vane Baker, LESLIE at 06/30/2021 2:39 PM CDT * Plan of Care - Grace Delacruz RRT - 06/30/2021 8:47 AM CDT Patient problems but not limited to Acute Traumatic Brain Injury with Subarachnoid Hemorrhage and Intraventricular Hemorrhage, Acute Encephalopathy S/P fall. Hx ETOH/Tobaccoo use; suspected COPD, CHF. ?? Of note patient is significantly [place] and Blind, intermintently cooperative. Patient does not [...] injury from restraints (Restraint for Interference with Naval Aircrewman Operator) Description: INTERVENTIONS: 1. Identify and document the [...] Free from restraint(s) (Restraint for Interference with Naval Aircrewman Operator) Description: INTERVENTIONS: 1. Q2H and PRN: Assess [...] this date. Pt awake, in bed upon SPRING SALVAGE WORKER arrival in room. No family/visitors present. Pt with face tent, mittens, and wrist restraints in bed but not in place. Pt observed to be easily distracted and unable to follow commands. A&Ox1 (name), unable to state place/situation/stated incorrect date for birthday. SPRING SALVAGE WORKER administered trials of puree. No s/s of aspiration withpuree trials. Pt required frequent redirection to task. Pt then pulling at blankets and NG noted zaire out of place and in covers. SPRING SALVAGE WORKER notified RN. RN arrived and replaced bilateral mittens. SPRING SALVAGE WORKER notified FISH SMOKER of tx session. * Plan of Care - Kristi Starr RN - 06/29/2021 11:50 AM CDT Goals: Problem: Health Behavior: Goal: Understanding of discharge needs will improve 06/29/2021 1150 by rKisti Starr, GAURAV Outcome: Not Progressing 06/29/2021 1149 by Kristi Starr, GAURAV Outcome: Progressing Problem: Activity: Goal: Mobility will improve 06/29/2021 1150 by Kristi Starr, [...] injury from restraints (Restraint for Interference with Naval Aircrewman Operator) Description: INTERVENTIONS: 1. Identify and document the [...] Free from restraint(s) (Restraint for Interference with Naval Aircrewman Operator) Description: INTERVENTIONS: 1. Q2H and PRN: Assess [...] perfusion will decrease 06/29/2021 1150 by Kristi Starr RN Outcome: Not Progressing 06/29/2021 1149 by Kristi Starr RN Outcome: Progressing Goal: Knowledge of disease or condition will improve 06/29/2021 1150 by Kristi Starr RN Outcome: Not Progressing 06/29/2021 1149 by Kristi Starr RN Outcome: Progressing Goal: Ability to identify and [...] level of consciousness 06/29/2021 1150 by Kristi Starr RN Outcome: Not Progressing 06/29/2021 1149 by Kristi Starr RN Outcome: Progressing Problem: Respiratory: Goal: Ability to maintain adequate ventilation will improve 06/29/2021 1150 by Kristi Starr RN Outcome: Not Progressing 06/29/2021 1149 by Kristi Starr RN Outcome: Progressing Problem: Self-Care: Goal: Ability to perform activities of daily living will improve 06/29/2021 1150 by Kristi Starr RN Outcome: Not Progressing 06/29/2021 1149 by Kristi Starr RN Outcome: Progressing Problem: Tissue Perfusion: Goal: [...] RN Outcome: Not Progressing 06/29/2021 1149 by Greenwood, Kristi Guillermina, RN Outcome: Progressing Problem: Safety: Goal: Will [...] monitor. * Plan of Care - Fifi Lawson, SHOE SHINER - 06/29/2021 11:46 AM CDT DISCHARGE PLANNING: Problem: Ensure acute medical needs are met and that patient has a safe discharge plan. Goal: Secure a facility that patient/family are agreeable with and ensure patient has continuum of care upon discharge. Pt discussed with Physician, river expedition guide, Social Work and Case Management. Per [facility], pt is not medically stable for discharge at this time. Pt is currently in restraints, which could be a potential barrier to discharge. Pt has PT recs for SNF from 06/28 and OT recs for IPR from 06/29. Pt is A&Ox1 at baseline so SW met with pt's significant other, Raine Redman ([phone]) to discuss discharge plan adry. Raine states she wants pt to get therapy to be able to walk again. Raine states, He cannot come home until he can walk . AMARJIT and Raine spoke about the possibility of SNF placement. Raine states, I wish you wouldn't call those places Nursing Home Facilities. Those places do not provide therapy and don't tell me that they do. Raine requested information on Acute Inpatient Rehabs. SW provided Raine with information on IPRs but informed Raine that it's always possible pt may not be accepted to those facilities. SW encouraged Raine to also consider SNFs as a potential alternate plan if IPRs do not accept pt. Raine states she wants pt to be placed in [place] and that she would be agreeable to looking at SNFs within 20 miles of [place], [place]. SW sent SNF list and IPR list to Anne e-mail at [email or web address]. Current plan is for pt to d/c to SNF vs. IPR when medically stable.Raine is agreeable to plan. SW to follow up with Raine to obtain SNF/IPR preferences and send referrals. Social work to follow for discharge planning and emotional support as necessary. ADD: Saturday, 07/03 Insurance: Anthem Medicare Primary Contact: significant other, Raine Redman ([phone]) PAIGE Wilson [facility] Social Work * Plan of Care - Lizzeth Huitron MSW - 06/29/2021 9:41 AM CDT Per [facility] rounds with Engineer Booster And Exhauster, Clinical Applications Manager, Charge Nurse, and MD, the patient is not medically stable for discharge at this time. Problem: Ensure acute medical needs are met and that patient has a safe discharge plan. Goal: Secure a placement that patient/family are agreeable with and ensure patient has continuum ofcare. Discharge plan: Patient transferred from Neuro ICU to [facility]. Patient has PT recs for SNF; OT [...] injury from restraints (Restraint for Interference with Naval Aircrewman Operator) Description: INTERVENTIONS: 1. Identify and document the [...] Free from restraint(s) (Restraint for Interference with Naval Aircrewman Operator) Description: INTERVENTIONS: 1. Q2H and PRN: Assess [...] CDT Neuro Critical Care Transfer Note to [facility] Trauma Dx: TBI with trace tSAH and [...] alcohol alcohol use who was transferred to [facility] 06/11 from OSH after being found to have trace traumatic SAH and IVH following a recent fall. Had first been taken to [facility] via EMS on 06/08 after sustaining fall with LOC at home. At [facility] initially CT head negative and he was [...] whi ch he was ultimately transferred to [facility] under the neurosurgerical service the evening of [...] A nasal trumpet was placed, POCT ABG 7.43/82/24 and he was then transferred to 9400 ICU for closer monitoring. [facility] records received and reviewed. Summarized as follows [...] on PM of 06/29 (susceptibilities sent to [place]). Extubated on 06/18 and placed on high [...] dry. NEURO EXAM (of note, patient very [place] & legally blind) Mental Status Awake while [...] q4h + sleep hygiene -- PT, OT, SPRING SALVAGE WORKER consults # Encephalopathy - Improving -- suspect [...] gtt 06/13-06/14; will need outpatient f/u with Hand Flatwork Finisher -- previously on amiodarone, discontinued (not optimal medication for this patient to be continued on local intermodal truck driver) -- continue metoprolol 50 mg BID for [...] at 75 mL/hr while NO liquids per SPRING SALVAGE WORKER on diet (will end after 2L given) [...] back yet -- f/u susceptibilities (sent to [place]) # Leukocytosis -- WBC count now trending [...] CODE STATUS: Full Code Disposition: Transfer to [facility] Trauma floor Family Info: Raine [phone] (significant other, ex- but back together - reportedly POA and supposed to bring paperwork in) Latha Díaz [phone] (daughter) Both family members were called and [...] OOBTC. * Plan of Care - Dmitry Pedroza, BUNNY - 06/28/2021 12:38 AM CDT Pt is [...] injury from restraints (Restraint for Interference with Naval Aircrewman Operator) Description: INTERVENTIONS: 1. Identify and document the [...] Free from restraint(s) (Restraint for Interference with Naval Aircrewman Operator) Description: INTERVENTIONS: 1. Q2H and PRN: Assess [...] injury from restraints (Restraint for Interference with Naval Aircrewman Operator) Description: INTERVENTIONS: 1. Identify and document the [...] COPD, CHF. Of note patient is significantly [place] and Blind, minimally cooperative. Per Neuro team, [...] injury from restraints (Restraint for Interference with Naval Aircrewman Operator) Description: INTERVENTIONS: 1. Identify and document the [...] Goals for the Shift: q4 NC/sleep hygiege 9638-0207. Q1 VS, labs, comfort, restraint safety Summary: Neuro exam unchanged. Sleep hygiene [id number]. VSS. Labs reviewed. Restraints checked q2h.Removed face tent at 6am per [facility] MD. Will trial without it this morning. [...] injury from restraints (Restraint for Interference with Naval Aircrewman Operator) Description: INTERVENTIONS: 1. Identify and document the [...] Free from restraint(s) (Restraint for Interference with Naval Aircrewman Operator) Description: INTERVENTIONS: 1. Q2H and PRN: Assess [...] injury from restraints (Restraint for Interference with Naval Aircrewman Operator) Description: INTERVENTIONS: 1. Identify and document the [...] injury from restraints (Restraint for Interference with Naval Aircrewman Operator) Description: INTERVENTIONS: 1. Identify and document the [...] Free from restraint(s) (Restraint for Interference with Naval Aircrewman Operator) Description: INTERVENTIONS: 1. Q2H and PRN: Assess [...] injury from restraints (Restraint for Interference with Naval Aircrewman Operator) Description: INTERVENTIONS: 1. Identify and document the [...] Progressing * Plan of Care - Dmitry Pedroza RRT - 06/23/2021 10:11 PM CDT Pt is on 40% FT . Pt given Cough assist TID followed by CPT TID with the vest. Pt tolerated well with small amount of oral secretions . RCS to monitor and treat. * Plan of Care - Jazzy Clarke LCSW - 06/23/2021 7:32 PM CDT Patient continues to have bilateral soft wrist restraints and bilateral mittens. nursing home facility referrals will be sent when restraints [...] bilateral soft wrist restraints and bilateral mittens nursing home facility referrals will be sent when patient [...] record. Sincerely, .ALVARO Dasilva, RN, CCDS Clinical Flare Worker [email or web address] * Plan of Care - Karlee Shi RN - 06/21/2021 11:28 AM CDT Goals: Clinical Goals for the Shift: Neuro q4, vss q1, OOB to chair, encourage cough, monitor secretions, SPRING SALVAGE WORKER to eval swallow, monitor I&O, encourage participation [...] injury from restraints (Restraint for Interference with Naval Aircrewman Operator) Description: INTERVENTIONS: 1. Identify and document the [...] Free from restraint(s) (Restraint for Interference with Naval Aircrewman Operator) Description: INTERVENTIONS: 1. Q2H and PRN: Assess [...] injury from restraints (Restraint for Interference with Naval Aircrewman Operator) Description: INTERVENTIONS: 1. Identify and document the [...] injury from restraints (Restraint for Interference with Naval Aircrewman Operator) Description: INTERVENTIONS: 1. Identify and document the [...] Free from restraint(s) (Restraint for Interference with Naval Aircrewman Operator) Description: INTERVENTIONS: 1. Q2H and PRN: Assess [...] and output will improve 06/19/20211951 by Hillary DeL a O RN Outcome: Progressing 06/19/20211949 by Hillary [...] injury from restraints (Restraint for Interference with Naval Aircrewman Operator) Description: INTERVENTIONS: 1. Identify and document the [...] La O RN Outcome: Progressing 06/19/20211949 by Hilalry De La O RN Outcome: Progressing Problem: [...] intake will improve 06/19/20211951 by Hillary De aL O RN Outcome: Progressing 06/19/20211949 by Hillary [...] injury from restraints (Restraint for Interference with Naval Aircrewman Operator) Description: INTERVENTIONS: 1. Identify and document the [...] Outcome: Not Progressing 06/19/20211949 by Hillary De aL O RN Outcome: Not Progressing Problem: Safety - Medical Restraint Goal: Free from restraint(s) (Restraint for Interference with Naval Aircrewman Operator) Description: INTERVENTIONS: 1. Q2H and PRN: Assess [...] CDT Goals: Clinical Goals for the Shift: [id number], T4dtgnqb, promote comfort, monitor I&O Summary: Problem: Activity: [...] injury from restraints (Restraint for Interference with Naval Aircrewman Operator) Description: INTERVENTIONS: 1. Identify and document the [...] Free from restraint(s) (Restraint for Interference with Naval Aircrewman Operator) Description: INTERVENTIONS: 1. Q2H and PRN: Assess [...] improve Outcome: Not Progressing * Plan of Marilyn - Taryn Suarez RN - 06/18/2021 9:38 AM CDT Goals: Clinical Goals for the Shift: J0gnywyl, K4cfgnps, promote comfort, monitor I&O Summary: Problem: Health [...] spontaneous ventilation Plan: Wean settings as tolerated E MECHANIC * Plan of Care - Little Hawkins RN - 06/18/2021 1:39 AM CST Goals: Clinical Goals for the Shift: [id number], H8vmouzt, promote comfort, monitor I&O Summary: Problem: Activity: [...] injury from restraints (Restraint for Interference with Naval Aircrewman Operator) Description: INTERVENTIONS: 1. Identify and document the [...] Free from restraint(s) (Restraint for Interference with Naval Aircrewman Operator) Description: INTERVENTIONS: 1. Q2H and PRN: Assess [...] self-injurious behavior will increase Outcome: Not Progressing E MECHANIC * Plan of Care - Taryn Suarez RN - 06/17/2021 9:48 AM CST Goals: Clinical Goals for the Shift: T0whdixs, E2htgrvu, promote comfort, monitor I&O Summary: Problem: Health [...] and injury in home environment Outcome: Progressing E MECHANIC * Plan of Care - Little Hawkins [...] injury from restraints (Restraint for Interference with Naval Aircrewman Operator) Description: INTERVENTIONS: 1. Identify and document the [...] Free from restraint(s) (Restraint for Interference with Naval Aircrewman Operator) Description: INTERVENTIONS: 1. Q2H and PRN: Assess [...] of falls will improve Outcome: Not Progressing E MECHANIC * Plan of Care - Charis Scott RRT - 06/17/2021 4:10 AM CST Impression: Patient is currently on spontaneous ventilation Plan: Wean settings as tolerated E MECHANIC * Plan of Care - Latha Navas [...] Progressing Goals: Clinical Goals for the Shift: Y6ovwjrd, A1kqmjud, promote comfort, monitor I&O Summary: patient following commands, doesn't answer orientation questions, slightly weaker on RUE E MECHANIC * ECIN Note - Jazzy Clarke LCSW - 06/16/2021 3:32 PM CST Images from [...] setting -CH -- Precautions -- Fall risk;Seizure - -- Additional Comments -- pt with limited [...] L sock;Don/doff R sock;Pull up over hips;Fasteners -CH -- Toilet Transfers Comments -- simulated BSC transfer with bed to chair transfer - CH -- Pain Assessment -- N-PAT -CH -- Current Vision -- -- per medical record, 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 Pt unable to report -CH -- Vision Comments -- pt with limited eye opening at this time -CH -- Overall Cognitive Status -- Impaired -CH -- Arousal/Alertness -- Lethargic -CH -- Attention Span -- Controlled environment;Attends with cues to redirect;Distractability - -- Orientation -- Oriented to person - -- Following Commands -- -- >75% of the time -CH -- Light Touch -- -- 2/2 generalized attention impairment -CH -- Motor Planning -- -- no cues for use for simple/1 step grooming task - -- Fine Motor -- -- would benefit from further testing, assessment limited by impaired attention to task -CH -- Serial Opposition -- -- NT 2/2 impaired command following -CH -- RUE Grasp -- Gross grasp 4/5 - -- LUE Grasp -- Gross grasp 4/5 - -- Balance -- Yes - -- Static Sitting-Balance Support -- No upper extremity supported - -- Static Sitting-Sitting Surface -- Bed - -- Static Sitting-Level of Assistance -- Moderate assistance - -- Static Standing-Balance Support -- Bilateral upper [...] - -- Transfer From 2 -- Bed - -- Transfer Type 2 -- To - [...] attention to task, spontaneous AROM observed, PROM WF - -- LUE Assessment -- -- assessment limited by impaired attention to task, spontaneous AROM observed, PROM WF - -- Putting on and taking off [...] Facility - -- OT Frequency Monitor status - 3-5x/wk - -- Treatment/Interventions -- ADL/IADL retraining;Balance Training;Bed mobility;Cognitive retraining;Compensatory technique education;Endurance training;Equipment eval/education;Functional activity;Functional mobility training;Functional transfer training;Neuromuscular re- education;Parent/caregiver training and education;Positioning;Sensorimotor skills;Strengthening;Therapeutic activity;Therapeutic exercise;Transfer training;Upper extremity motor function/functional skills;Visual motor/perceptual skills - -- OT - Next Appointment 06/19/21 - 06/15/21 - -- OT Evaluation Complete -- Yes - -- User Troy (r) = Recorded By, (t) = Taken By, (c) = Cosigned By Initials Name Effective Dates Trinity Meehan, OT 12/29/18 - Cielo Moore, OT 06/14/21 - Emerita Medina, OT 12/29/18 - OT Treatment Row Name 06/13/21 0805 N-PAT N-V Smiling.calm, relaxed none 0 -CH N-PAT N-V Movement 0 -CH N-PAT N-V Facial Cues 0 -CH N-PAT N-V Position/Guarding 0 -CH N-PAT N-V Score 0 -CH User Troy (r) = Recorded By, (t) = Taken By, (c) = Cosigned By Initials Name Effective Dates CH Shefali Trinity, OT 12/29/18 - OT Notes 06/15/2021 9:31 [...] Flexion 3-/5 -WT -- R Knee Extension 3/ -WT -- R Ankle Dorsiflexion / -WT -- LLE Assessment -- unable to grade MMT but pt able to perform some AROM and PROM WFL -WT -- L Hip Flexion 3-/ -WT -- L Knee Extension / -WT -- Equipment Use Comments no gait [...] the discharge summary -WT -- PT Recommendation/Plan Nursing Home Facility -WT -- PT Recommendation/Plan Comments SNF [...] this type exist for this encounter. , SPRING SALVAGE WORKER Eval and Treat Last 72 Hours SPRING SALVAGE WORKER Evaluation Row Name 06/16/21 1318 06/15/21 0853 SPRING SALVAGE WORKER Missed Visit Reason -- intubated -SK Patient declined now intubated. -SK SPRING SALVAGE WORKER Frequency of Services Monitor status - Monitor status - SPRING SALVAGE WORKER - Next Appointment 06/19/21 -SK 06/16/21 -SK User Troy (r) = Recorded By, (t) = Taken By, (c) = Cosigned By Initials Name Effective Dates SK Mildred Buck, SPRING SALVAGE WORKER 12/29/18 - SPRING SALVAGE WORKER Treatment No documentation. Clinical Swallow Study No documentation. SPRING SALVAGE WORKER Notes Notes from 06/14/21 through 06/16/21 No notes of this type exist for this encounter. , Wound Info Only Patient Lines/Drains/Airways Status Active Wound / Pressure ulcer / Johnson / Negative Pressure Wound Wound 06/12/21 Abscess Left Scrotum spontaneaously draining large amount purulent/sanguinous exudate Date First Assessed 06/12/21 Site Scrotum Time First Assessed 1820 Days 3 Wound Type: Abscess Location Orientation: Left Wound Description (Comments): spontaneaously draining large amount purulent/sanguinous exudate Assessments Row Name 06/15/21199906/15/21 0806/14/211999 Wound Status Healed -- Evolving Site Assessment [...] 06/12/21 Site Coccyx Time First Assessed 1999 3 Present on Hospital Admission: Yes Assessments Row Name 06/15/21199906/15/2179906/14/211999 Wound Status Healed Healed Healed Site Assessment [...] Center Center Secured by -- Commercial tube brodreick secured -- Commercial tube broderick secured Commercial [...] 1 1 1 1 1 Row Name 06/15/21 2056 06/16/21 0044 06/16/21 0429 06/16/21 0846 06/16/21 1125 [...] Assist Ventilation 1 1 1 1 1 E MECHANIC * ECIN Note - Jazzy Clarke LCSW - 06/16/2021 3:24 PM CST Scheduled Meds Sorted by Name for Jania Redman as of 06/16/21 1524 Legend: ? Inactive Active Linked ? Medications 06/16/21 06/17/21 06/18/21 06/19/21 06/20/21 06/21/21 06/22/21 amiodarone (PACERONE) tablet 400 mg Dose: 400 mg Freq: 3 times daily Route: feed tube Start: 06/14/21 09 End: 06/19/21 0859 0912 1600 2099 899 1600 2099 899 1599 2099 0859-D/C'd Followed by amiodarone (PACERONE) tablet 200 mg Dose: 200 mg Freq: Daily Route: feed tube Start: 06/19/21 09 09899 chlorhexidine (PERIDEX) 0.12 % solution 15 mL Dose: 15 mL Freq: 2 times daily Route: mouth/throat Start: 06/15/21 1000 0915 2099 899 2099 899 2099 899 2099 899 2099 899 2099 Dose: 100 mg Freq: 2 times daily Route: oral Indications of Use: constipation Indications Comment: Stool Softener Start: 06/11/212099 End: 06/12/21 112 Admin Instructions: If able to swallow capsules. [...] Route: feed tube Start: 06/16/21 1415 1402 2014 0210 0815 1415 2014 0315 0815 1415 2014 0215 0815 1415 2014 metoprolol tartrate immediate release capsule 12.5 mg Dose: 12.5 mg Freq: Once Route: oral Start: 06/16/21 1215 End: 06/17/21 1215 (2139) 1218-D/C'd qaclvgsa-ysy-ccsnvso gluconate (CENTRUM) 0.6 mg iron/mL oral liquid 15 mL Dose: 15 mL Freq: Daily Route: feed tube Start: 06/12/21 1245 0912 0900 0900 0900 0900 0900 pantoprazole (PROTONIX) 4 mg/mL injection 40 mg Dose: 40 mg Freq: Every 24 hours scheduled Route: IV Indications of Use: Treatment of Non-Bleeding Gastric Disorder Start: 06/12/21 1415 Admin Instructions: For IV Push administration for adults- 40 mg vial: add 10 mL of sodium chloride 0.9% to achieve afinal concentration of 4 mg/mL 911 899 899 899 899 899 pravastatin (PRAVACHOL) tablet 40 mg Dose: 40 mg Freq: Daily Route: feed tube Start: 06/13/21899 Dose: 1 tablet Freq: 2 times daily [...] 2099 899 2099 899 2099 899 2099 sodium chloride 0.9% flush 0.5-20 mL Dose: 0.5-20 mL Freq: Every 8 hours scheduled Route: cath Indications of Use: flushing Start: 06/11/212199 Admin Instructions: Flush volume based on line type and size. (6133) 1403 2200 0600 1400 2200 0600 1400 2200 0600 1400 2200 0600 1400 2200 sodium chloride 0.9% flush 0.5-20 mL Dose: 0.5-20 mL Freq: Every 8 hours scheduled Route: cath Indications of Use: flushing Start: 06/11/212199 Admin Instructions: Flush volume based on line type and size. (0316) 1403 2200 0600 1400 2200 0600 1400 [...] ?? Continuous Meds Sorted by Name for Юлия Jania A as of 06/16/21 1524 Legend: [...] tolerating PO. Indications of Use: constipation Start: 06/11/21 191 levalbuterol (XOPENEX) 1.25 mg/3 mL nebulizer solution 1.25 mg Dose: 1.25 mg Freq: Every 6 hours PRN (correspondence transcriber) Route: nebu PRN Reasons: wheezing,shortness of breath Start: 06/13/21 1245 Order specific questions: I /authorizing provider attest that the patient meets the approved [facility] Use Criteria: Yes ondansetron ODT (ZOFRAN-ODT) disintegrating tablet 4 mg Dose: 4 mg Freq: Every 6 hours PRN Route: oral PRN Reasons: nausea,vomiting Indications Comment: Nausea and Vomiting Start: 06/11/211912 End: 06/12/21 1728 Or ondansetron (ZOFRAN) injection 4 mg Dose: [...] 06/17/21 06/18/21 06/19/21 06/20/21 06/21/21 06/22/21 ?? E MECHANIC * Plan of Care - Dmitry Pedroza RRT - 06/16/2021 2:01 AM CST Pt is on spontaneous ventilator settings. RCS to monitor . E MECHANIC * Plan of Care - Zaria Card, RN - 06/16/2021 12:23 AM CST Goals: Clinical Goals for the Shift: D3ddyhyf, R6ermsmc, promote comfort, monitor I&O Problem: Health Behavior: [...] injury from restraints (Restraint for Interference with Naval Aircrewman Operator) Description: INTERVENTIONS: 1. Identify and document the [...] from injury from falls Outcome: Progressing Summary: E MECHANIC * Plan of Care - Jemma Steward RN - 06/15/2021 4:00 PM CST Case Management unable to perform initial interview, for discharge planning. Patient and or family unavailable at this time. CM will attempt at a later time. If any discharge planning needs arise, please call covering pillowcase folder. Patient admitted with: BRYN Jemma Steward Crown Assembly Machine Operator Available from 8a.m.-4:30p.m. For emergency needs from 4:31p.m. - 7:59a.m., please call the packing machine can feeder For weekend/holiday needs from 8:00a.m. - 4:30p.m., please call the Weekend Engineer Booster And Exhauster. E MECHANIC * Plan of Care - Wellington Tom [...] injury from restraints (Restraint for Interference with Naval Aircrewman Operator) Description: INTERVENTIONS: 1. Identify and document the [...] Free from restraint(s) (Restraint for Interference with Naval Aircrewman Operator) Description: INTERVENTIONS: 1. Q2H and PRN: Assess [...] and injury in home environment Outcome: Progressing E MECHANIC * Plan of Care - Dmitry Pedroza RRT - 06/15/2021 4:01 AM CST Pt is on full support .RCS to monitor. E MECHANIC * Significant Event - Digna Carter NP - 06/15/2021 2:58 AM CST Patient continued to desaturate and required intubation. I called Raine Díaz [phone] to update. I was not able to get a hold of Raine Díaz. I called the patient's daughter Latha Díaz [phone] and updated her on the patient's current status. All questions were answered. E MECHANIC * Plan of Care - Aby Toney [...] injury from restraints (Restraint for Interference with Naval Aircrewman Operator) Description: INTERVENTIONS: 1. Identify and document the [...] Q4 neuro, promote comfort and manage safety E MECHANIC * Plan of Care - Brittany Guaman RRT - 06/14/2021 3:15 PM CST Patient ordered on Cough Assist. Patient tolerated treatment poorly. Patient's bronchial hygiene risk score is 14. Plan - Continue treatment as ordered. E MECHANIC * Significant Event - Cassie Trent NP - 06/14/2021 2:51 PM SCALE MECHANIC I called the patient's significant other/ex- Raine Díaz ([phone]) to provide update todayand there was no answer. I also called the patient's daughter Latha Díaz ([phone]) and there was also no answer. Voicemails left with encouragement to call back at her convenience for updates. Of note, I have been speaking with Raine daily since ICU admission on 06/12 to provide updates regarding Mr. Redman's condition and plan of care. E MECHANIC * Hospital Course - Tamiko Ray NP [...] alcohol alcohol use who was transferred to [facility] 06/11 from OSH after being found to have trace traumatic SAH and IVH following a recent fall. Had first been taken to [facility] via EMS on 06/08 after sustaining fall with LOC at home. At [facility] initially CT head negative and he was [...] whi ch he was ultimately transferred to [facility] under the neurosurgerical service the evening of [...] A nasal trumpet was placed, POCT ABG 7.43/82/24 and he was then transferred to [facility] ICU for closer monitoring. [facility] records received and reviewed. Summarized as follows [...] on PM of 06/29 (susceptibilities sent to [place]). Extubated on 06/18 and placed on high [...] normal sleep/wake cycle and trazodone 100mg qHs. E MECHANIC E MECHANIC E MECHANIC * Plan of Care - Jemma Steward RN - 06/14/2021 1:29 PM CST Case Management unable to perform initial interview, for discharge planning. Patient and or family unavailable at this time. CM will attempt at a later time. If any discharge planning needs arise, please call covering pillowcase folder. Patient admitted with: BRYN Steward Crown Assembly Machine Operator Available from 8a.m.-4:30p.m. For emergency needs from 4:31p.m. - 7:59a.m., please call the packing machine can feeder For weekend/holiday needs from 8:00a.m. - 4:30p.m., please call the Weekend Engineer Booster And Exhauster. E MECHANIC * Plan of Care - Latha Chaves [...] neuro checks, promote comfort and safety, OOBTC. E MECHANIC * Plan of Care - Aby Toney [...] injury from restraints (Restraint for Interference with Naval Aircrewman Operator) Description: INTERVENTIONS: 1. Identify and document the [...] from self-injurious behavior will increase Outcome: Progressing E MECHANIC * Plan of Care - Jemma Steward RN - 06/13/2021 3:46 PM CST Case Management unable to perform initial interview, for discharge planning. Patient and or family unavailable at this time. CM will attempt at a later time. If any discharge planning needs arise, please call covering pillowcase folder. Patient admitted with: BRYN Steward Crown Assembly Machine Operator Available from 8a.m.-4:30p.m. For emergency needs from 4:31p.m. - 7:59a.m., please call the packing machine can feeder For weekend/holiday needs from 8:00a.m. - 4:30p.m., please call the Weekend Engineer Booster And Exhauster. E MECHANIC * Provider Query - Kyler Tavarez - [...] clinical impression in detail Respiratory Failure References [employer] Hospitalist Jan/Feb 2013 Coding Clinics: 3rd Q 1987, p 7 and 2nd Q 1989, p.20 https://www.cms.gov/ujlwprxl-rrx-xofocuqhz/medicare-learning-network-mln/mlnprod ucts/downloads/izjb-zyvskm-smcdzvh-text-only.pdf Use of terms such as likely, suspected, possible, or probable (associated with a specific diagnosisthat is being evaluated, monitored, or treated as if it exists) are acceptable and can be coded in the inpatient setting when documented at the time of discharge. This documentation will become part of the patient???s medical record. Sincerely, ALVARO Dasilva, RN, CCDS Clinical Flare Worker [email or web address] E MECHANIC * Plan of Care - Deni Lu RRT - 06/13/2021 9:31 AM CST Pt will continue with Cough assisst TX and HHFT. I will assess and evaluate pt throughout the day. E MECHANIC * Plan of Care - Suyapa Shi RN - 06/12/2021 5:34 PM CST Problem: Nutritional: Goal: Ability to maintain a balanced intake and output will improve Outcome: Progressing Problem: Skin Integrity: Goal: Risk for impaired skin integrity will decrease Outcome: Progressing Problem: Safety - Medical Restraint Goal: Remains free of injury from restraints (Restraint for Interference with [employer] Aircrew[employer] Operator) Description: INTERVENTIONS: 1. Identify and document the [...] comfort Summary: Admitted to [facility] [facility] from [address] AT 1110. Bedside report rec'd. Plan of care initiated. E MECHANIC * Significant Event - Cassie Trent NP - 06/12/2021 3:59 PM SCALE MECHANIC Alvaro records received and reviewed. Summarized as follows (see paper chart for records): Admitted overnight 06/08-06/09 with concern for syncope as unclear details surrounding fall at time. Ethyl alcohol level 101 on presentation. Encephalopathic and oriented to self only attributed to alcohol use/withdrawal. TSH, ammonia, B12, and folate reportedly wnl (do not have labs available for viewing in EPIC). CT with chronic bilateral lacunar infarcts but [...] 06/11 revealed occipital IVH prompting transfer to [facility]. Per OSH documentation hs daughter reported that at baseline he is keenly alert and capable of having normal conversations. Some report of leg shaking after fall at home. E MECHANIC * Significant Event - Leobardooco, Dianne Centeno MD - 06/12/2021 12:08 PM SCALE MECHANIC Brief Medicine Note 71 yo M with [...] intraventricular hemorrhage. He was then transferred to [facility] for further evaluation and management. ?? On [...] 99% atrial fibrillation. He last saw his legislative advocate 01/2021 and medications at that time were metoprolol tartrate 100mg BID, lisinopril 40mg daily, and Eliquis 5mg BID. This AM on assessment, patient difficult to arouse. Localized to pain upon sternal rub. Per RN, patient lethargic for entirety of the morning. -Agree with transfer to ICU for somnolence c/f inability to protect airway and for closer monitoring. E MECHANIC * Significant Event - Prosper Rodrigues MD - 06/12/2021 4:21 AM SCALE MECHANIC Asked by surgical team to evaluate patient [...] triage fellow phone with any further questions/concerns. [phone] Prosper Rodrigues MD Anesthesia Critical Care Fellow, PGY-4 E MECHANIC E MECHANIC E MECHANIC documented in this encounter Plan of Treatment [...] intertrochanteric fracture of left femur, initial encounter ([facility]) Case Notes Requested By Kirill @ 20:45 [...] VIDEO IP Routine 06/26/2021 1:09 PM CDT SPRING SALVAGE WORKER EVALUATE AND TREAT VIDEOFLUOROSCOPIC SWALLOW STUDY Routine [...] CONTRAST ED Urgent/IP Urgent 06/17/2021 10:57 PM SCALE MECHANIC EGFR Routine 06/17/2021 10:03 PM SCALE MECHANIC CBC WITHOUT DIFFERENTIAL Routine 06/17/2021 10:03 PM SCALE MECHANIC PHOSPHORUS Timed 06/17/2021 10:03 PM SCALE MECHANIC MAGNESIUM Timed 06/17/2021 10:03 PM SCALE MECHANIC BLOOD GAS, ARTERIAL Routine 06/17/2021 10:03 PM SCALE MECHANIC BASIC METABOLIC PANEL Routine 06/17/2021 10:03 PM SCALE MECHANIC XR CHEST 1 VIEW IP Routine 06/17/2021 9:20 PM SCALE MECHANIC US SCROTUM IP Routine 06/17/2021 7:13 PM SCALE MECHANIC AEROBIC AND ANAEROBIC CULTURE AND GRAM STAIN Routine 06/17/2021 1:47 PM SCALE MECHANIC EGFR Timed 06/17/2021 8:17 AM SCALE MECHANIC PHOSPHORUS Timed 06/17/2021 8:17 AM SCALE MECHANIC MAGNESIUM Timed 06/17/2021 8:17 AM SCALE MECHANIC BASIC METABOLIC PANEL Timed 06/17/2021 8:17 AM SCALE MECHANIC CALCIUM, IONIZED STAT 06/16/2021 11:47 PM SCALE MECHANIC BLOOD GAS, ARTERIAL Routine 06/16/2021 10:24 PM SCALE MECHANIC EGFR Routine 06/16/2021 9:35 PM SCALE MECHANIC CBC WITHOUT DIFFERENTIAL Routine 06/16/2021 9:35 PM SCALE MECHANIC PHOSPHORUS Timed 06/16/2021 9:35 PM SCALE MECHANIC MAGNESIUM Timed 06/16/2021 9:35 PM SCALE MECHANIC BASIC METABOLIC PANEL Routine 06/16/2021 9:35 PM SCALE MECHANIC XR CHEST 1 VIEW IP Routine 06/16/2021 9:27 PM SCALE MECHANIC AEROBIC CULTURE AND GRAM STAIN Routine 06/16/2021 6:48 PM SCALE MECHANIC EGFR Timed 06/16/2021 9:02 AM SCALE MECHANIC PHOSPHORUS Timed 06/16/2021 9:02 AM SCALE MECHANIC MAGNESIUM Timed 06/16/2021 9:02 AM SCALE MECHANIC BASIC METABOLIC PANEL Timed 06/16/2021 9:02 AM SCALE MECHANIC POTASSIUM, WHOLE BLOOD Routine 10:34 PM SCALE MECHANIC CBC WITHOUT DIFFERENTIAL Routine 06/15/2021 10:34 PM SCALE MECHANIC EGFR Routine 06/15/2021 8:57 PM SCALE MECHANIC PHOSPHORUS Timed 06/15/2021 8:57 PM SCALE MECHANIC MAGNESIUM Timed 06/15/2021 8:57 PM SCALE MECHANIC BASIC METABOLIC PANEL Routine 06/15/2021 8:57 PM SCALE MECHANIC XR CHEST 1 VIEW IP Routine 06/15/2021 8:08 PM SCALE MECHANIC EGFR Timed 06/15/2021 8:00 AM SCALE MECHANIC PHOSPHORUS Timed 06/15/2021 8:00 AM SCALE MECHANIC MAGNESIUM Timed 06/15/2021 8:00 AM SCALE MECHANIC BASIC METABOLIC PANEL Timed 06/15/2021 8:00 AM SCALE MECHANIC EEG Routine 06/15/2021 7:40 AM SCALE MECHANIC BLOOD GAS, ARTERIAL STAT 06/15/2021 4:22 AM SCALE MECHANIC INTUBATION Routine 06/15/2021 3:57 AM SCALE MECHANIC Intraventricular hemorrhage (CMS/HCC) (HCC) CT HEAD WO CONTRAST Critical/Life- Threatening 06/15/2021 3:17 AM SCALE MECHANIC XR CHEST 1 VIEW Critical/Life- Threatening 06/15/2021 3:08 AM SCALE MECHANIC XR CHEST 1 VIEW ED Urgent/IP Urgent 06/15/2021 1:43 AM SCALE MECHANIC BLOOD GAS, ARTERIAL STAT 06/15/2021 1:12 AM SCALE MECHANIC EGFR Routine 06/14/2021 9:38 PM SCALE MECHANIC CBC WITHOUT DIFFERENTIAL Routine 06/14/2021 9:38 PM SCALE MECHANIC PHOSPHORUS Timed 06/14/2021 9:38 PM SCALE MECHANIC MAGNESIUM Timed 06/14/2021 9:38 PM SCALE MECHANIC BASIC METABOLIC PANEL Routine 06/14/2021 9:38 PM SCALE MECHANIC US VEIN DUPLEX LOWER EXTREMITY BILATERAL COMPLETE IP Routine 06/14/2021 5:35 PM SCALE MECHANIC EGFR Timed 06/14/2021 8:56 AM SCALE MECHANIC BLOOD CULTURE Routine 06/14/2021 8:56 AM SCALE MECHANIC BLOOD CULTURE Routine 06/14/2021 8:56 AM SCALE MECHANIC PHOSPHORUS Timed 06/14/2021 8:56 AM SCALE MECHANIC MAGNESIUM Timed 06/14/2021 8:56 AM SCALE MECHANIC BASIC METABOLIC PANEL Timed 06/14/2021 8:56 AM SCALE MECHANIC MRI BRAIN W WO CONTRAST ED Urgent/IP Urgent 06/14/2021 2:42 AM SCALE MECHANIC EGFR STAT 06/14/2021 12:52 AM SCALE MECHANIC PHOSPHORUS STAT 06/14/2021 12:52 AM SCALE MECHANIC MAGNESIUM STAT 06/14/2021 12:52 AM SCALE MECHANIC BASIC METABOLIC PANEL STAT 06/14/2021 12:52 AM SCALE MECHANIC ECG 12-LEAD STAT 06/13/2021 11:38 PM SCALE MECHANIC EGFR STAT 06/13/2021 10:52 PM SCALE MECHANIC CRITICAL RESULT CALLBACK CHEMISTRY STAT 06/13/2021 10:52 PM SCALE MECHANIC BASIC METABOLIC PANEL STAT 06/13/2021 10:52 PM SCALE MECHANIC INEXSUFFLATOR COUGH MACHINE Routine 06/13/2021 9:00 PM SCALE MECHANIC CBC WITHOUT DIFFERENTIAL Routine 06/13/2021 8:48 PM SCALE MECHANIC TRANSTHORACIC ECHO (TTE) COMPLETE W DOPPLER/CF W CONTRAST W BUBBLE STAT 06/13/2021 4:49 PM SCALE MECHANIC POTASSIUM, WHOLE BLOOD STAT 2:26 PM SCALE MECHANIC CONTINUOUS VIDEO EEG Routine 06/13/2021 1:58 PM SCALE MECHANIC INEXSUFFLATOR COUGH MACHINE Routine 06/13/2021 1:00 PM SCALE MECHANIC EGFR STAT 06/13/2021 12:57 PM SCALE MECHANIC DIFFERENTIAL AUTO STAT 06/13/2021 12:57 PM SCALE MECHANIC CALCIUM, IONIZED STAT 06/13/2021 12:57 PM SCALE MECHANIC CBC WITH AUTO DIFFERENTIAL STAT 06/13/2021 12:57 PM SCALE MECHANIC BASIC METABOLIC PANEL STAT 06/13/2021 12:57 PM SCALE MECHANIC XR CHEST 1 VIEW ED Urgent/IP Urgent 06/13/2021 11:26 AM SCALE MECHANIC EGFR STAT 06/13/2021 11:08 AM SCALE MECHANIC CBC WITHOUT DIFFERENTIAL STAT 06/13/2021 11:08 AM SCALE MECHANIC AMMONIA STAT 06/13/2021 11:08 AM SCALE MECHANIC BASIC METABOLIC PANEL STAT 06/13/2021 11:08 AM SCALE MECHANIC INEXSUFFLATOR COUGH MACHINE Routine 06/13/2021 9:00 AM SCALE MECHANIC INEXSUFFLATOR COUGH MACHINE Routine 06/12/2021 9:00 PM SCALE MECHANIC INEXSUFFLATOR COUGH MACHINE Routine 06/12/2021 5:01 PM SCALE MECHANIC EGFR Routine 06/12/2021 4:34 PM SCALE MECHANIC HIV 1/2 ANTIBODY PLUS P24 ANTIGEN Routine 06/12/2021 4:34 PM SCALE MECHANIC COPPER, SERUM Routine 06/12/2021 4:34 PM SCALE MECHANIC HEPATITIS PANEL, ACUTE Routine 4:34 PM SCALE MECHANIC RPR Routine 06/12/2021 4:34 PM SCALE MECHANIC CBC WITHOUT DIFFERENTIAL Routine 06/12/2021 4:34 PM SCALE MECHANIC VITAMIN B1 Routine 06/12/2021 4:34 PM SCALE MECHANIC MAGNESIUM Routine 06/12/2021 4:34 PM SCALE MECHANIC FOLATE Routine 06/12/2021 4:34 PM SCALE MECHANIC VITAMIN B12 Routine 06/12/2021 4:34 PM SCALE MECHANIC BASIC METABOLIC PANEL Routine 06/12/2021 4:34 PM SCALE MECHANIC EEG Routine 06/12/2021 3:25 PM SCALE MECHANIC INEXSUFFLATOR COUGH MACHINE Routine 06/12/2021 2:42 PM SCALE MECHANIC INEXSUFFLATOR COUGH MACHINE Routine 06/12/2021 2:42 PM SCALE MECHANIC INEXSUFFLATOR COUGH MACHINE Routine 06/12/2021 2:42 PM SCALE MECHANIC INEXSUFFLATOR COUGH MACHINE Routine 06/12/2021 2:42 PM SCALE MECHANIC INEXSUFFLATOR COUGH MACHINE Routine 06/12/2021 2:42 PM SCALE MECHANIC URINALYSIS AND REFLEX TO MICROSCOPIC AND CULTURE Routine 06/12/2021 2:36 PM SCALE MECHANIC URINALYSIS, MICROSCOPIC ONLY Routine 06/12/2021 2:36 PM SCALE MECHANIC EGFR STAT 06/12/2021 1:31 PM SCALE MECHANIC DIFFERENTIAL AUTO STAT 06/12/2021 1:31 PM SCALE MECHANIC THYROID FUNCTION CASCADE STAT 06/12/2021 1:31 PM SCALE MECHANIC CBC WITH AUTO DIFFERENTIAL STAT 06/12/2021 1:31 PM SCALE MECHANIC PHOSPHORUS STAT 06/12/2021 1:31 PM SCALE MECHANIC MAGNESIUM STAT 06/12/2021 1:31 PM SCALE MECHANIC HEMOGLOBIN A1C STAT 06/12/2021 1:31 PM SCALE MECHANIC LIPID PANEL STAT 06/12/2021 1:31 PM SCALE MECHANIC COMPREHENSIVE METABOLIC PANEL STAT 06/12/2021 1:31 PM SCALE MECHANIC XR ABDOMEN AP 1 VIEW ED Urgent/IP Urgent 06/12/2021 12:41 PM SCALE MECHANIC XR CHEST 1 VIEW ED Urgent/IP Urgent 06/12/2021 12:18 PM SCALE MECHANIC COVID-19 CORONAVIRUS RNA Routine 06/12/2021 12:14 PM SCALE MECHANIC ECG 12-LEAD Routine 06/12/2021 12:[address] HEAD WO CONTRAST ED Urgent/IP Urgent 06/12/2021 12:11 PM SCALE MECHANIC EGFR STAT 06/12/2021 11:44 AM SCALE MECHANIC DIFFERENTIAL AUTO STAT 06/12/2021 11:44 AM SCALE MECHANIC CBC WITH AUTO DIFFERENTIAL STAT 06/12/2021 11:44 AM SCALE MECHANIC TYPE AND SCREEN STAT 06/12/2021 11:44 AM SCALE MECHANIC PHOSPHORUS STAT 06/12/2021 11:44 AM SCALE MECHANIC MAGNESIUM STAT 06/12/2021 11:44 AM SCALE MECHANIC BLOOD GAS, ARTERIAL STAT 06/12/2021 11:44 AM SCALE MECHANIC COMPREHENSIVE METABOLIC PANEL STAT 06/12/2021 11:44 AM SCALE MECHANIC POCT GLUCOSE DEVICE Routine 06/12/2021 11:11 AM SCALE MECHANIC ARTERIAL BLOOD GAS W/LACTATE Routine 06/12/2021 10:53 AM SCALE MECHANIC BLOOD GAS, ARTERIAL STAT 06/12/2021 9:59 AM SCALE MECHANIC POCT GLUCOSE DEVICE Routine 06/12/2021 4:12 AM SCALE MECHANIC ECG 12-LEAD Routine 06/12/2021 4:11 AM SCALE MECHANIC XR CHEST 1 VIEW ED Urgent/IP Urgent 06/11/2021 10:20 PM SCALE MECHANIC URINALYSIS AND REFLEX TO MICROSCOPIC AND CULTURE STAT 06/11/2021 10:[address] HEAD WO CONTRAST ED Urgent/IP Urgent 06/11/2021 9:23 PM SCALE MECHANIC EGFR STAT 06/11/2021 8:29 PM SCALE MECHANIC DIFFERENTIAL AUTO STAT 06/11/2021 8:29 PM SCALE MECHANIC CBC WITH AUTO DIFFERENTIAL STAT 06/11/2021 8:29 PM SCALE MECHANIC APTT STAT 06/11/2021 8:29 PM SCALE MECHANIC PROTIME-INR STAT 06/11/2021 8:29 PM SCALE MECHANIC TYPE AND SCREEN STAT 06/11/2021 8:29 PM SCALE MECHANIC BASIC METABOLIC PANEL STAT 06/11/2021 8:29 PM SCALE MECHANIC NEURO CT MR OUTSIDE CONSULT Routine 06/11/2021 7:53 PM SCALE MECHANIC Diagnosis unknown NEURO CT MR OUTSIDE CONSULT Routine 06/11/2021 7:52 PM SCALE MECHANIC Diagnosis unknown ECG 12-LEAD STAT 06/11/2021 7:45 PM SCALE MECHANIC documented in this encounter Results * POCT glucose (07/07/2021 5:51 PM CDT) Glucose, POC 105 70 - 199 mg/dL [facility] Blood 07/07/2021 5:51 PM CDT 07/07/2021 5:51 PM CDT us Darrel Wolf MD LAB POCT ORDERABLES - DEVICE Final Result [facility] [place] [address] * POCT glucose (07/07/2021 12:47 PM CDT) Glucose, POC 160 70 - 199 mg/dL [facility] Blood 07/07/2021 12:4 7 PM CDT 07/07/2021 12:47 PM CDT us Darrel Wolf MD LAB POCT ORDERABLES - DEVICE Final Result Performing Organization Address [facility] Co de Phone Number [facility] [place] [address] * Magnesium (07/07/2021 11:12 AM CDT) Magnesium 1.7 1.4 - 2.5 mg/dL [facility] Blood 07/07/2021 11:1 2 AM CDT 07/07/2021 11:40 AM CDT us Julieta So NP LAB BLOOD ORDERABLES Fi nal Result Performing Organization Address [facility] Co de Phone Number [facility] [place] [address] * POCT glucose (07/07/2021 7:55 AM CDT) Glucose, POC 103 70 - 199 mg/dL [facility] Blood 07/07/2021 7:55 AM CDT 07/07/2021 7:55 AM CDT us Darrel Wolf MD LAB POCT ORDERABLES - DEVICE Final Result Performing Organization Address City/[facility] Co de Phone Number [facility] [place] [address] * POCT glucose (07/06/2021 8:39 PM CDT) Glucose, POC 170 70 - 199 mg/dL [facility] Blood 07/06/2021 8:39 PM CDT 07/06/2021 8:39 PM CDT us Darrel Wolf MD LAB POCT ORDERABLES - [place] [address] * POCT glucose (07/06/2021 6:37 PM CDT) Glucose, POC 134 70 - 199 mg/dL [facility] Blood 07/06/2021 6:37 PM CDT 07/06/2021 6:37 PM CDT Darrel Wolf MD LAB POCT ORDERABLES - DEVICE Final Result Performing Organization Address City/[facility]/[place] [address] * POCT glucose (07/06/2021 11:20 AM CDT) Glucose, POC 125 70 - 199 mg/dL [facility] Blood 07/06/2021 11:2 0 AM CDT 07/06/2021 11:20 AM CDT Darrel Wolf MD LAB POCT ORDERABLES - DEVICE Final Result Performing Organization Address City/[facility]/ZIP Co de Phone Number [facility] Department [place] [address] * Influenza A/B, RSV, and COVID-19 PCR Nasopharyngeal (07/06/2021 10:56 AM CDT) [facility] COVID-19 RNA Negative Negative [facility] Influenza A RNA Negative Negative [facility] Influenza B RNA Negative Negative [facility] RSV RNA Negative Negative [facility] Comment: Interpretive data: Testing performed by [facility] ([phone]). This test is performed using the [employer] Xpress CoV-2/Flu/RSV plus assay. This is a multiplex, real-time reverse transcriptase PCR assay intended for the qualitative detection of nucleic acid from SARS-CoV-2, influenza A, influenza B, and respiratory syncytial virus. This assay has been reviewed by the FDA for Emergency Use Authorization (EUA). The performance characteristics have been verified by the [facility]. Results must be considered in the clinical context, and a negative result does not rule out infection. Interpretive Data last revised 2021. First COVID-19 test? No [facility] Employeed in healthcare? No [facility] Group care resident? No [facility] Hospitalized? Yes [facility] Is patient in ICU? No [facility] Symptomatic as defined by CDC? No [facility] Nasopharyngeal 07/06/2021 10 :56 AM CDT 07/06/2021 1:03 PM CDT Narrative [facility] - 07/06/2021 2:49 PM CDT Reason for testing?->Placement in post-acute care setting Known exposure to confirmed or suspected COVID-19 case?->No Malu Rodriguez NP LAB MICROBIOLOGY - GENERAL ORD ERABLES Final Result [facility] [place] [address] * POCT glucose (07/06/2021 7:57 AM CDT) Glucose, POC 107 70 - 199 mg/dL [facility] Blood 07/06/2021 7:57 AM CDT 07/06/2021 7:57 AM CDT us Darrel Wolf MD LAB POCT ORDERABLES - DEVICE Final Result [facility] [place] [address] * eGFR (07/05/2021 11:33 PM CDT) eGFR >90 90 - 130 mL/min/1. 73 m2 [facility] Comment: Interpretive Data Reference Interval Normal [...] Nguyen MD LAB BLOOD ORDERABLES Final Result [facility] [place] [address] * Phosphorus (07/05/2021 11:33 PM CDT) Pathologist [facility] Phosphorus, pl 3.0 2.3 - 4.5 mg/dL [facility] Blood 07/05/2021 11:3 3 PM CDT 07/05/2021 11:46 PM CDT Troy Nguyen MD LAB BLOOD ORDERABLES Final Result [facility] [place] [address] * Magnesium (07/05/2021 11:33 PM CDT) [facility] Magnesium 1.6 1.4 - 2.5 mg/dL [facility] Blood 07/05/2021 11:3 3 PM CDT 07/05/2021 11:46 PM CDT us Troy Nguyen MD LAB BLOOD ORDERABLES Final Result Performing Organization Address [facility] Co de Phone Number [facility] [place] [address] * (ABNORMAL) CBC without differential (07/05/2021 11:33 PM CDT) [facility] WBC 6.3 3.8 - 9.9 K/cumm [facility] Hgb 9.4(L) 13.0 - 17.5 g/dL [facility] Hct 27.3(L) 38.9 - 50.3 % [facility] Plt 149(L) 150 - 400 K/cumm [facility] MPV 10.7 9.1 - 12.3 fL [facility] RBC 2.75(L) 4.30 - 5.80 M/cumm [facility] MCV 99.3(H) 81.3 - 96.4 fL [facility] MCH 34.2(H) 27.1 - 33.3 pg [facility] MCHC 34.4 32.3 - 35.7 g/dL [facility] RDW CV 12.5 11.1 - 14.9 % [facility] RDW SD 45.0 35.7 - 48.1 fL [facility] NRBC abs 0.00 0.00 - 0.01 K/cumm [facility] Blood 07/05/2021 11:3 3 PM CDT 07/05/2021 11:47 PM CDT us Troy Nguyen MD LAB BLOOD ORDERABLES Final Result [facility] [place] [address] * (ABNORMAL) Basic metabolic panel (07/05/2021 11:33 PM CDT) Sodium 138 135 - 145 mmol/L [facility] Potassium, pl 4.2 3.3 - 4.9 mmol/L [facility] Chloride 107 97 - 110 mmol/L [facility] CO2 27 22 - 32 mmol/L [facility] Anion gap 4 2 - 15 mmol/L [facility] BUN 13 8 - 25 mg/dL [facility] Creatinine 0.79(L) 0.80 - 1.30 mg/dL [facility] Glucose 104 70 - 199 mg/dL [facility] Comment: Interpretive Data Fasting glucose >/= [...] 2017. Calcium 8.9 8.5 - 10.3 mg/dL [facility] Blood 07/05/2021 11:3 3 PM CDT 07/05/2021 11:47 PM CDT Troy Nguyen MD LAB BLOOD ORDERABLES Final Result [facility] [place] [address] * POCT glucose (07/05/2021 11:32 PM CDT) Glucose, POC 111 70 - 199 mg/dL [facility] Blood 07/05/2021 11:3 2 PM CDT 07/05/2021 11:32 PM CDT us Darrel Wolf MD LAB POCT ORDERABLES - DEVICE Final Result Performing Organization Address [facility] Co de Phone Number [facility] [place] [address] * POCT glucose (07/05/2021 5:47 PM CDT) Glucose, POC 99 70 - 199 mg/dL [facility] Blood 07/05/2021 5:47 PM CDT 07/05/2021 5:47 PM CDT Darrel Wolf MD LAB POCT ORDERABLES - DEVICE Final Result Performing Organization Address [facility] [place] [address] * FL Modified Barium Swallow W Video [...] signed by: Chacha Pozo M.D. Elizabeth Persaud NP IMG FLUOROSCOPY PROCEDURE S Final Result * POCT glucose (07/05/2021 11:27 AM CDT) Glucose, POC 144 70 - 199 mg/dL [facility] Blood 07/05/2021 11:2 7 AM CDT 07/05/2021 11:27 AM CDT us Darrel Wolf MD LAB POCT ORDERABLES - DEVICE Final Result [facility] Department [place] [address] * POCT glucose (07/05/2021 8:04 AM CDT) [facility] Glucose, POC 91 70 - 199 mg/dL [facility] Blood 07/05/2021 8:04 AM CDT 07/05/2021 8:04 AM CDT us Darrel Wolf MD LAB POCT ORDERABLES - DEVICE Final Result [facility] [place] [address] * eGFR (07/05/2021 2:19 AM CDT) [facility] eGFR >90 90 - 130 mL/min/1. 73 m2 [facility] Comment: Interpretive Data Reference Interval Normal [...] CDT 07/05/2021 2:37 AM CDT Vy Munoz FISH SMOKER LAB BLOOD ORDERA BLES Final Result Performing Organization Address [facility] Co de Phone Number [facility] [place] [address] * Magnesium (07/05/2021 2:19 AM CDT) [facility] Magnesium 1.5 1.4 - 2.5 mg/dL [facility] Blood 07/05/2021 2:19 AM CDT 07/05/2021 2:37 AM CDT Vy Munoz FISH SMOKER LAB BLOOD ORDERA BLES Final Result Performing Organization Address [facility] de Phone Number [facility] [place] [address] * (ABNORMAL) CBC without differential (07/05/2021 2:19 AM CDT) [facility] WBC 6.7 3.8 - 9.9 K/cumm [facility] Hgb 10.3(L) 13.0 - 17.5 g/dL [facility] Hct 29.8(L) 38.9 - 50.3 % [facility] Plt 140(L) 150 - 400 K/cumm [facility] MPV 10.4 9.1 - 12.3 fL [facility] RBC 2.98(L) 4.30 - 5.80 M/cumm [facility] MCV 100.0(H) 81.3 - 96.4 fL [facility] MCH 34.6(H) 27.1 - 33.3 pg [facility] MCHC 34.6 32.3 - 35.7 g/dL [facility] RDW CV 12.6 11.1 - 14.9 % [facility] RDW SD 45.2 35.7 - 48.1 fL [facility] NRBC abs 0.00 0.00 - 0.01 K/cumm [facility] Blood 07/05/2021 2:19 AM CDT 07/05/2021 2:36 AM CDT Vy Munoz FISH SMOKER LAB BLOOD ORDERA BLES Final Result Performing Organization Address City/[facility]/ZIP Co de Phone Number [facility] [place] [address] * Basic metabolic panel (07/05/2021 2:19 AM CDT) [facility] Sodium 140 135 - 145 mmol/L [facility] Potassium, pl 4.6 3.3 - 4.9 mmol/L [facility] Chloride 108 97 - 110 mmol/L [facility] CO2 24 22 - 32 mmol/L [facility] Anion gap 8 2 - 15 mmol/L [facility] BUN 11 8 - 25 mg/dL [facility] Creatinine 0.83 0.80 - 1.30 mg/dL [facility] Glucose 97 70 - 199 mg/dL [facility] Comment: Interpretive Data Fasting glucose >/= [...] 2017. Calcium 8.8 8.5 - 10.3 mg/dL [facility] Blood 07/05/2021 2:19 AM CDT 07/05/2021 2:37 AM CDT Vy Munoz NP LAB BLOOD ORDERA BLES Final Result Performing Organization Address [facility]/State/ZIP Co de Phone Number [facility] [place] [address] * POCT glucose (07/04/2021 11:38 PM CDT) Glucose, POC 107 70 - 199 mg/dL [facility] Blood 07/04/2021 11:3 8 PM CDT 07/04/2021 11:38 PM CDT us Darrel Wolf MD LAB POCT ORDERABLES - DEVICE Final Result Performing Organization Address [facility] Co de Phone Number [facility] [place] [address] * ECG 12 lead (07/04/2021 7:56 PM CDT) [facility] Ventricular Rate EKG/Min 156 BPM [facility] [facility] Atrial Rate 326 BPM [facility] QRS-Interval (MSEC) 72 ms [facility] QT-Interval (MSEC) 294 ms [facility] QTc 473 ms [facility] R [place] 46 degrees [facility] T [place] 198 degrees [facility] Diagnosis Atrial fibrillation with rapid ventricular response Nonspecific ST and T wave abnormality Abnormal ECG When compared with ECG of 13-JUN-2021 23:38, Vent. rate has increased BY ??78 BPM Nonspecific T wave abnormality no longer evident in Anterior leads Confirmed by KERRY NICOLE M.D ([id number]) on 07/05/2021 9:58:52 PM [facility] 07/04/2021 7:56 PM CDT 07/05/2021 9:58 PM CDT us Cassie Trent FISH SMOKER ECG ORDERABLES Final Re sult [facility] * POCT glucose (07/04/2021 5:27 PM CDT) Glucose, POC 99 70 - 199 mg/dL [facility] Blood 07/04/2021 5:27 PM CDT 07/04/2021 5:27 PM CDT us Darrel Wolf MD LAB POCT ORDERABLES - DEVICE Final Result [facility] [place] [address] * FL Fluoroscopy < 1 Hour (07/04/2021 11:17 AM CDT) Narrative [email or web address] - 07/04/2021 11:18 AM CDT The images from this study are not interpreted by Radiology. ??Please refer to the physician's procedure / OR operative note. us Yoanna Delvalle MD IMG FLUOROSCOPY NV OCEDURES Final Result Performing Organization Address [facility] Co de Phone Number [email or web address] * eGFR (07/03/2021 10:35 PM CDT) eGFR >90 90 - 130 mL/min/1. 73 m2 [facility] Comment: Interpretive Data Reference Interval Normal [...] ORDERABLES Fi nal Result Performing Organization Address [facility] Co de Phone Number [facility] [place] [address] * Protime-INR (07/03/2021 10:35 PM CDT) PT 12.8 9.5 - 13.6 sec [facility] INR 1.2 0.9 - 1.2 [facility] Comment: Interpretive data Oral anticoagulant therapeutic ranges: Venous thromboembolism prophylaxis or treatment: 2.0-3.0 CARDIOLOGY Standard range: 2.0-3.0 High-intensity range: 2.5-3.5 Refer to indication-specific guidelines for appropriate target ranges for prosthetic heart valve replacement. Current interpretive data was last revised on 2019. Blood 07/03/2021 10:3 5 PM CDT 07/03/2021 10:52 PM CDT Darrel Wolf MD LAB BLOOD ORDERABLES F inal Result Performing Organization Address [facility] Co de Phone Number [facility] [place] [address] * Type and screen (07/03/2021 10:35 PM CDT) Nancy, indirect Negative [facility] ABO Rh O Positive [facility] Blood 07/03/2021 10:3 5 PM CDT 07/03/2021 11:08 PM CDT Narrative [facility] - 07/04/2021 12:10 AM CDT Has the patient had Daratumumab or Isatuximab in the past 6 months?->Unknown us Darrel Wolf MD LAB BLOOD BANK TEST OR DERABLES Final Result [facility] [place] [address] * Magnesium (07/03/2021 10:35 PM CDT) [facility] Magnesium 1.7 1.4 - 2.5 mg/dL [facility] Blood 07/03/2021 10:3 5 PM CDT 07/03/2021 10:48 PM CDT Julieta So NP LAB BLOOD ORDERABLES Fi nal Result Performing Organization Address [facility] Co de Phone Number [facility] Department [place] [address] * (ABNORMAL) CBC without differential (07/03/2021 10:35 PM CDT) [facility] WBC 6.5 3.8 - 9.9 K/cumm [facility] Hgb 11.8(L) 13.0 - 17.5 g/dL [facility] Hct 34.0(L) 38.9 - 50.3 % [facility] Plt 185 150 - 400 K/cumm [facility] MPV 10.2 9.1 - 12.3 fL [facility] RBC 3.45(L) 4.30 - 5.80 M/cumm [facility] MCV 98.6(H) 81.3 - 96.4 fL [facility] MCH 34.2(H) 27.1 - 33.3 pg [facility] MCHC 34.7 32.3 - 35.7 g/dL [facility] RDW CV 12.2 11.1 - 14.9 % [facility] RDW SD 44.1 35.7 - 48.1 fL [facility] NRBC abs 0.00 0.00 - 0.01 K/cumm [facility] Blood 07/03/2021 10:3 5 PM CDT 07/03/2021 10:50 PM CDT Julieta So NP LAB BLOOD ORDERABLES Fi nal Result Performing Organization Address City/[facility]/ZIP Co de Phone Number [facility] Department [place] [address] * (ABNORMAL) Basic metabolic panel (07/03/2021 10:35 PM CDT) [facility] Sodium 140 135 - 145 mmol/L [facility] Potassium, pl 4.4 3.3 - 4.9 mmol/L [facility] Chloride 105 97 - 110 mmol/L [facility] CO2 29 22 - 32 mmol/L [facility] Anion gap 6 2 - 15 mmol/L [facility] BUN 13 8 - 25 mg/dL [facility] Creatinine 0.75(L) 0.80 - 1.30 mg/dL [facility] Glucose 106 70 - 199 mg/dL [facility] Comment: Interpretive Data Fasting glucose >/= [...] 2017. Calcium 9.6 8.5 - 10.3 mg/dL [facility] Blood 07/03/2021 10:3 5 PM CDT 07/03/2021 10:48 PM CDT Julieta So NP LAB BLOOD ORDERABLES Fi nal Result Performing Organization Address [facility]/ZIP Co de Phone Number [facility] Department [place] [address] * POCT glucose (07/03/2021 10:33 PM CDT) Glucose, POC 97 70 - 199 mg/dL [facility] Blood 07/03/2021 10:3 3 PM CDT 07/03/2021 10:33 PM CDT Darrel Wolf MD LAB POCT ORDERABLES - DEVICE Final Result [facility] [place] [address] * XR Hip Left 2 or 3 [...] * Magnesium (07/03/2021 12:08 AM CDT) Pathologist [facility] Magnesium 1.8 1.4 - 2.5 mg/dL [facility] Blood 07/03/2021 12:0 8 AM CDT 07/03/2021 12:23 AM CDT Darrel Wolf MD LAB BLOOD ORDERABLES F inal Result [facility] Department [place] [address] * eGFR (07/03/2021 12:08 AM CDT) Pathologist [facility] eGFR >90 90 - 130 mL/min/1. 73 m2 [facility] Comment: Interpretive Data Reference Interval Normal [...] CDT 07/03/2021 12:23 AM CDT Vy Munoz FISH SMOKER LAB BLOOD ORDERA BLES Final Result [facility] [place] [address] * Differential, auto (07/03/2021 12:08 AM CDT) Neutrophil abs 4.2 1.7 - 6.5 K/cumm [facility] Imm gran abs 0.0 0.0 - 0.1 K/cumm [facility] Lymphocyte abs 1.4 0.8 - 3.3 K/cumm [facility] Monocyte abs 0.4 0.2 - 0.8 K/cumm [facility] Eosinophil abs 0.2 0.0 - 0.5 K/cumm [facility] Basophil abs 0.0 0.0 - 0.1 K/cumm [facility] Neutrophil pct 67.6 % [facility] Comment: Interpretive Data Percent cell count reference ranges are not reported, since discordance with absolute values may lead to misinterpretation of CBC data. Current Interpretive Data was last revised on 2017. Imm gran pct 0.6 % [facility] Comment: Interpretive Data Percent cell count reference ranges are not reported, since discordance with absolute values may lead to misinterpretation of CBC data. Current Interpretive Data was last revised on 2017. Lymphocyte pct 21.9 % [facility] Comment: Interpretive Data Percent cell count reference ranges are not reported, since discordance with absolute values may lead to misinterpretation of CBC data. Current Interpretive Data was last revised on 2017. Monocyte pct 6.4 % [facility] Comment: Interpretive Data Percent cell count reference ranges are not reported, since discordance with absolute values may lead to misinterpretation of CBC data. Current Interpretive Data was last revised on 2017. Eosinophil pct 3.0 % [facility] Comment: Interpretive Data Percent cell count reference ranges are not reported, since discordance with absolute values may lead to misinterpretation of CBC data. Current Interpretive Data was last revised on 2017. Basophil pct 0.5 % [facility] Comment: Interpretive Data Percent cell count reference ranges are not reported, since discordance with absolute values may lead to misinterpretation of CBC data. Current Interpretive Data was last revised on 2017. Blood 07/03/2021 12:0 8 AM CDT 07/03/2021 12:23 AM CDT Vy Munoz NP LAB BLOOD ORDERA BLES Final Result [facility] [place] [address] * (ABNORMAL) CBC with auto differential (07/03/2021 12:08 AM CDT) WBC 6.3 3.8 - 9.9 K/cumm [facility] Hgb 11.9(L) 13.0 - 17.5 g/dL [facility] Hct 35.4(L) 38.9 - 50.3 % [facility] Plt 184 150 - 400 K/cumm [facility] MPV 10.2 9.1 - 12.3 fL [facility] RBC 3.48(L) 4.30 - 5.80 M/cumm [facility] MCV 101.7(H) 81.3 - 96.4 fL [facility] MCH 34.2(H) 27.1 - 33.3 pg [facility] MCHC 33.6 32.3 - 35.7 g/dL [facility] RDW CV 12.3 11.1 - 14.9 % [facility] RDW SD 46.3 35.7 - 48.1 fL [facility] NRBC abs 0.00 0.00 - 0.01 K/cumm [facility] Blood 07/03/2021 12:0 8 AM CDT 07/03/2021 12:23 AM CDT Vy Munoz NP LAB BLOOD ORDERA BLES Final Result Performing Organization Address City/[facility]/ZIP Co de Phone Number [facility] Department [place] [address] * (ABNORMAL) Basic metabolic panel (07/03/2021 12:08 AM CDT) [facility] Sodium 138 135 - 145 mmol/L [facility] Potassium, pl 4.3 3.3 - 4.9 mmol/L [facility] Chloride 106 97 - 110 mmol/L [facility] CO2 26 22 - 32 mmol/L [facility] Anion gap 6 2 - 15 mmol/L [facility] BUN 12 8 - 25 mg/dL [facility] Creatinine 0.73(L) 0.80 - 1.30 mg/dL [facility] Glucose 121 70 - 199 mg/dL [facility] Comment: Interpretive Data Fasting glucose >/= [...] 2017. Calcium 9.1 8.5 - 10.3 mg/dL [facility] Blood 07/03/2021 12:0 8 AM CDT 07/03/2021 12:23 AM CDT Vy Mnuoz NP LAB BLOOD ORDERA BLES Final Result Performing Organization Address [facility]/ZIP Co de Phone Number [facility] Department [place] [address] * POCT glucose (07/02/2021 10:09 PM CDT) Glucose, POC 112 70 - 199 mg/dL [facility] Blood 07/02/2021 10:0 9 PM CDT 07/02/2021 10:09 PM CDT us Darrel Wolf MD LAB POCT ORDERABLES - DEVICE Final Result [facility] [place] [address] * CT Head WO Contrast (07/02/2021 1:45 [...] to intravenous line injection. Procedure Note Carlin Burris MD PhD - 07/02/2021 EXAMINATION: CT head [...] with it. Electronically signed by: Carlin Burris Darrel Wolf MD IMG CT PROCEDURES Mariangel [...] and agrees with it. Electronically signed by: Curyr Batres MD Narrative 07/02/2021 4:53 PM CDT EXAMINATION: 1. MRI HIP LEFT WO CONTRAST HISTORY: ??Left proximal femur fracture. TECHNIQUE: MR examination of the pelvis and left hip was performed without intravenous contrast. Coronal short TR/TE and STIR images and transverse short TR/TE and fast spin echo images of the pelvis were obtained without contrast. ??Additional small myaar-ug-[id number] oblique transverse and sagittal fast spin-echo images [...] pelvis were obtained without contrast. Additional small [id number] oblique transverse and sagittal fast spin-echo images [...] Glucose, POC 111 70 - 199 mg/dL [facility] Blood 07/01/2021 10:3 5 PM CDT 07/01/2021 10:35 PM CDT Darrel Wolf MD LAB POCT ORDERABLES - DEVICE Final Result Performing Organization Address City/[facility]/ZIP Co de Phone Number [facility] [place] [employer] [place] [address] * POCT glucose (07/01/2021 2:35 PM CDT) Glucose, POC 112 70 - 199 mg/dL [facility] Blood 07/01/2021 2:35 PM CDT 07/01/2021 2:35 PM CDT Darrel Wofl MD LAB POCT ORDERABLES - DEVICE Final Result Performing Organization Address City/[facility]/ZIP Co de Phone Number [facility] [place] [address] * POCT glucose (07/01/2021 8:54 AM CDT) Glucose, POC 102 70 - 199 mg/dL [facility] Blood 07/01/2021 8:54 AM CDT 07/01/2021 8:54 AM CDT Darrel Wolf MD LAB POCT ORDERABLES - DEVICE Final Result Performing Organization Address [facility] Co de Phone Number [facility] [place] [address] * POCT glucose (06/30/2021 10:38 PM CDT) Glucose, POC 153 70 - 199 mg/dL [facility] Blood 06/30/2021 10:3 8 PM CDT 06/30/2021 10:38 PM CDT Darrel Wolf MD LAB POCT ORDERABLES - DEVICE Final Result Performing Organization Address [facility] Co de Phone Number [facility] [place] [address] * POCT glucose (06/30/2021 6:06 PM CDT) Glucose, POC 94 70 - 199 mg/dL [facility] Blood 06/30/2021 6:06 PM CDT 06/30/2021 6:06 PM CDT Darrel Wolf MD LAB POCT ORDERABLES - DEVICE Final Result Performing Organization Address [facility] [place] [address] * FL Long GI Tube Placement (06/30/2021 [...] anesthetized with viscous lidocaine and an 8 Mauritian nasoenteric feeding tube was advanced under fluoroscopic [...] anesthetized with viscous lidocaine and an 8 [place]itian nasoenteric feeding tube was advanced under fluoroscopic [...] it. Electronically signed by: Tamar Bonilla M.D. us Julieta So FISH SMOKER IMG FLUOROSCOPY PROCEDU RES Final Result * POCT glucose (06/30/2021 11:49 AM CDT) Glucose, POC 106 70 - 199 mg/dL [facility] Blood 06/30/2021 11:4 9 AM CDT 06/30/2021 11:49 AM CDT Darrel Wolf MD LAB POCT ORDERABLES - DEVICE Final Result [facility] Department [place] [address] * POCT glucose (06/30/2021 7:44 AM CDT) Glucose, POC 99 70 - 199 mg/dL [facility] Blood 06/30/2021 7:44 AM CDT 06/30/2021 7:44 AM CDT Darrel Wolf MD LAB POCT ORDERABLES - DEVICE Final Result Performing Organization Address City/[facility] Co de Phone Number [facility] [place] [place] [address] * POCT glucose (06/30/2021 12:37 AM CDT) Glucose, POC 123 70 - 199 mg/dL [facility] Blood 06/30/2021 12:3 7 AM CDT 06/30/2021 12:37 AM CDT Darrel Wolf MD LAB POCT ORDERABLES - DEVICE Final Result Performing Organization Address City/[facility]/ZIP Co de Phone Number [facility] [place] [address] * POCT glucose (06/29/2021 11:44 PM CDT) Glucose, POC 104 70 - 199 mg/dL [facility] Blood 06/29/2021 11:4 4 PM CDT 06/29/2021 11:44 PM CDT Darrel Wolf MD LAB POCT ORDERABLES - DEVICE Final Result Performing Organization Address [facility] de Phone Number [facility] [place] [address] * POCT glucose (06/29/2021 11:28 PM CDT) Glucose, POC 90 70 - 199 mg/dL [facility] Blood 06/29/2021 11:2 8 PM CDT 06/29/2021 11:28 PM CDT Darrel Wolf MD LAB POCT ORDERABLES - DEVICE Final Result Performing Organization Address [facility] de Phone Number [facility] [place] [address] * (ABNORMAL) POCT glucose (06/29/2021 11:13 PM CDT) Glucose, POC 32(C) 70 - 199 mg/dL [facility] Glucose comment 1 Glu2: [facility] Blood 06/29/2021 11:1 3 PM CDT 06/29/2021 11:13 PM CDT Darrel Wolf MD LAB POCT ORDERABLES - DEVICE Final Result Performing Organization Address [facility] [place] [address] * (ABNORMAL) eGFR (06/29/2021 9:17 PM CDT) eGFR 82(L) 90 - 130 mL/min/1. 73 m2 [facility] Comment: Interpretive Data Reference Interval Normal [...] 06/29/2021 9:52 PM CDT us Cassie Trent FISH SMOKER LAB BLOOD ORDERABLES Fin al Result Performing Organization Address [facility] de Phone Number [facility] Department [place] [address] * Magnesium (06/29/2021 9:17 PM CDT) Magnesium 1.9 1.4 - 2.5 mg/dL [facility] Blood 06/29/2021 9:17 PM CDT 06/29/2021 9:52 PM CDT Tamiko Ray FISH SMOKER LAB BLOOD ORDERABLES Final R esult Performing Organization Address City/[facility] Co de Phone Number [facility] Department [place] [address] * Basic metabolic panel (06/29/2021 9:17 PM CDT) Sodium 135 135 - 145 mmol/L [facility] Potassium, pl 4.5 3.3 - 4.9 mmol/L [facility] Chloride 104 97 - 110 mmol/L [facility] CO2 24 22 - 32 mmol/L [facility] Anion gap 7 2 - 15 mmol/L [facility] BUN 17 8 - 25 mg/dL [facility] Creatinine 0.99 0.80 - 1.30 mg/dL [facility] Glucose 70 70 - 199 mg/dL [facility] Comment: Interpretive Data Fasting glucose >/= [...] 2017. Calcium 9.2 8.5 - 10.3 mg/dL [facility] Blood 06/29/2021 9:17 PM CDT 06/29/2021 9:52 PM CDT Cassie Trent FISH SMOKER LAB BLOOD ORDERABLES Fin al Result [facility] Department [place] [address] * [place] Carotids Duplex Bilateral (06/29/2021 10:45 AM CDT) Anatomical Region Laterality Modality Vascular Bilateral Ultrasound 06/29/2021 10:2 3 AM CDT Narrative 06/29/2021 11:39 AM CDT [facility] - Department of Vascular Surgery, Vascular Laboratory [address] [place] [address] Carotid Duplex Ultrasound Report Patient Name: JANIA REDMAN : 1950 (71y 1m) Study Date: 06/29/2021 10:23:46 AM Gender: M Tech: Location: [id number] Ref.Provider: ELIZABETH PERSAUD Quality: Adequate Order Provider: [...] ?47 ? cm/sec ? - Findings: Performing Search Lead: Judy Strange RVT. Rt Common Carotid Artery: [...] alcohol alcohol use who was transferred to [facility] 06/11 from [facility] after being found [...] performed. Electronically Signed By: Saqib Forbes MD [facility] [phone] 2021-06-29 11:39:21 CDT CC: CC: Procedure Note Saqib Forbes MD - 06/29/2021 [facility] - Department of Vascular Surgery,Vascular Laboratory [address] [place] [address] Carotid Duplex Ultrasound Report Patient Name: JANIA REDMANPatient ID: [id number] : 1950 (71y 1m)Study Date: 06/29/2021 10:23:46 AM Gender: MAccession #: [id number] Tech: BLLocation: [id number] Ref.Provider: Ryder PERSAUDality: Adequate Order Provider: Xiomara PERSAUD #: [id number] Procedures: Carotid Report: Carotid duplex examination of [...] LT VERT PSV 47cm/sec - Findings: Performing Search Lead: Judy Strange RVT. Rt Common Carotid Artery: [...] alcohol alcohol use who was transferred to [facility] from [facility] after being found to have trace traumatic [...] performed. Electronically Signed By: Saqib Forbes MD [facility] [phone] 2021-06-29 11:39:21 CDT CC: CC: Elizbaeth Persaud NP IMG US PROCEDURES Final R esult * (ABNORMAL) eGFR (06/28/2021 10:24 PM CDT) eGFR 83(L) 90 - 130 mL/min/1. 73 m2 [facility] Comment: Interpretive Data Reference Interval Normal [...] CDT 06/28/2021 10:42 PM CDT Cassie Trent FISH SMOKER LAB BLOOD ORDERABLES Fin al Result Performing Organization Address City/[facility]/ZIP Co de Phone Number [facility] Department [place] [address] * Magnesium (06/28/2021 10:24 PM CDT) Pathologist [facility] Magnesium 2.0 1.4 - 2.5 mg/dL [facility] Blood 06/28/2021 10:2 4 PM CDT 06/28/2021 10:42 PM CDT Tamiko Ray FISH SMOKER LAB BLOOD ORDERABLES Final R esult Performing Organization Address City/[facility]/ZIP Co de Phone Number [facility] Department [place] [address] * (ABNORMAL) CBC without differential (06/28/2021 10:24 PM CDT) WBC 6.3 3.8 - 9.9 K/cumm [facility] Hgb 12.2(L) 13.0 - 17.5 g/dL [facility] Hct 34.5(L) 38.9 - 50.3 % [facility] Plt 217 150 - 400 K/cumm [facility] MPV 10.4 9.1 - 12.3 fL [facility] RBC 3.48(L) 4.30 - 5.80 M/cumm [facility] MCV 99.1(H) 81.3 - 96.4 fL [facility] MCH 35.1(H) 27.1 - 33.3 pg [facility] MCHC 35.4 32.3 - 35.7 g/dL [facility] RDW CV 12.7 11.1 - 14.9 % [facility] RDW SD 45.7 35.7 - 48.1 fL [facility] NRBC abs 0.00 0.00 - 0.01 K/cumm [facility] Blood 06/28/2021 10:2 4 PM CDT 06/28/2021 10:42 PM CDT Cassie Trent FISH SMOKER LAB BLOOD ORDERABLES Fin al Result [facility] [place] [address] * Basic metabolic panel (06/28/2021 10:24 PM CDT) Sodium 137 135 - 145 mmol/L [facility] Potassium, pl 4.4 3.3 - 4.9 mmol/L [facility] Chloride 102 97 - 110 mmol/L [facility] CO2 26 22 - 32 mmol/L [facility] Anion gap 9 2 - 15 mmol/L [facility] BUN 18 8 - 25 mg/dL [facility] Creatinine 0.98 0.80 - 1.30 mg/dL [facility] Glucose 90 70 - 199 mg/dL [facility] Comment: Interpretive Data Fasting glucose >/= [...] 2017. Calcium 9.1 8.5 - 10.3 mg/dL [facility] Blood 06/28/2021 10:2 4 PM CDT 06/28/2021 10:42 PM CDT Cassie Trent FISH SMOKER LAB BLOOD ORDERABLES Fin al Result [facility] [place] [address] * (ABNORMAL) eGFR (06/27/2021 9:45 PM CDT) Pathologist [facility] eGFR 86(L) 90 - 130 mL/min/1. 73 m2 [facility] Comment: Interpretive Data Reference Interval Normal [...] CDT 06/27/2021 10:17 PM CDT Cassie Trent NP LAB BLOOD ORDERABLES Fin al Result [facility] [place] [address] * Magnesium (06/27/2021 9:45 PM CDT) Pathologist [facility] Magnesium 2.2 1.4 - 2.5 mg/dL [facility] Blood 06/27/2021 9:45 PM CDT 06/27/2021 10:17 PM CDT Tamiko Ray FISH SMOKER LAB BLOOD ORDERABLES Final R esult Performing Organization Address [facility] Co de Phone Number [facility] [place] [address] * (ABNORMAL) CBC without differential (06/27/2021 9:45 PM CDT) [facility] WBC 10.2(H) 3.8 - 9.9 K/cumm [facility] Hgb 11.7(L) 13.0 - 17.5 g/dL [facility] Hct 33.7(L) 38.9 - 50.3 % [facility] Plt 240 150 - 400 K/cumm [facility] MPV 10.7 9.1 - 12.3 fL [facility] RBC 3.41(L) 4.30 - 5.80 M/cumm [facility] MCV 98.8(H) 81.3 - 96.4 fL [facility] MCH 34.3(H) 27.1 - 33.3 pg [facility] MCHC 34.7 32.3 - 35.7 g/dL [facility] RDW CV 12.6 11.1 - 14.9 % [facility] RDW SD 45.4 35.7 - 48.1 fL [facility] [facility] NRBC abs 0.00 0.00 - 0.01 K/cumm [facility] Blood 06/27/2021 9:45 PM CDT 06/27/2021 10:18 PM CDT us Cassie Rika Trent LAB BLOOD ORDERABLES Fin al Result Performing Organization Address City/[facility]/ZIP Co de Phone Number [facility] [place] [employer] [place] [address] * (ABNORMAL) Basic metabolic panel (06/27/2021 9:45 PM CDT) Sodium 133(L) 135 - 145 mmol/L [facility] Potassium, pl 4.7 3.3 - 4.9 mmol/L [facility] Comment:Hemolyzed; Potassium value may be falsely elevated by as much as 0.3-0.5 mmol/L. Suggest redraw and reanalysis. Chloride 99 97 - 110 mmol/L [facility] CO2 27 22 - 32 mmol/L [facility] Anion gap 7 2 - 15 mmol/L [facility] BUN 20 8 - 25 mg/dL [facility] Creatinine 0.95 0.80 - 1.30 mg/dL [facility] Glucose 107 70 - 199 mg/dL [facility] Comment: Interpretive Data Fasting glucose >/= [...] 2017. Calcium 9.4 8.5 - 10.3 mg/dL [facility] Blood 06/27/2021 9:45 PM CDT 06/27/2021 10:17 PM CDT Cassie Rika Trent LAB BLOOD ORDERABLES Fin al Result Performing Organization Address City/[facility]/ZIP Co de Phone Number [facility] [place] [address] * (ABNORMAL) eGFR (06/26/2021 11:47 PM CDT) eGFR 89(L) 90 - 130 mL/min/1. 73 m2 [facility] Comment: Interpretive Data Reference Interval Normal [...] 7 PM CDT 06/27/2021 12:11 AM CDT us Cassie Trent [employer] LAB BLOOD ORDERABLES Fin al Result [facility] [place] [address] * Magnesium (06/26/2021 11:47 PM CDT) Pathologist [facility] Magnesium 1.8 1.4 - 2.5 mg/dL [facility] Blood 06/26/2021 11:4 7 PM CDT 06/27/2021 12:11 AM CDT Tamiko Ray [employer] LAB BLOOD ORDERABLES Final R esult Performing Organization Address [facility] Co de Phone Number [facility] Department [place] [address] * (ABNORMAL) CBC without differential (06/26/2021 11:47 PM CDT) WBC 17.4(H) 3.8 - 9.9 K/cumm [facility] Hgb 12.4(L) 13.0 - 17.5 g/dL [facility] Hct 35.4(L) 38.9 - 50.3 % [facility] Plt 227 150 - 400 K/cumm [facility] MPV 10.4 9.1 - 12.3 fL [facility] RBC 3.59(L) 4.30 - 5.80 M/cumm [facility] MCV 98.6(H) 81.3 - 96.4 fL [facility] MCH 34.5(H) 27.1 - 33.3 pg [facility] MCHC 35.0 32.3 - 35.7 g/dL [facility] RDW CV 12.2 11.1 - 14.9 % [facility] RDW SD 44.0 35.7 - 48.1 fL [facility] NRBC abs 0.00 0.00 - 0.01 K/cumm [facility] Blood 06/26/2021 11:4 7 PM CDT 06/27/2021 12:11 AM CDT Cassie Trent [employer] LAB BLOOD ORDERABLES Fin al Result Performing Organization Address [facility]/ZIP Co de Phone Number [facility] Department [place] [address] * Basic metabolic panel (06/26/2021 11:47 PM CDT) Pathologist [facility] Sodium 135 135 - 145 mmol/L [facility] Potassium, pl 4.7 3.3 - 4.9 mmol/L [facility] Chloride 99 97 - 110 mmol/L [facility] CO2 27 22 - 32 mmol/L [facility] Anion gap 9 2 - 15 mmol/L [facility] BUN 18 8 - 25 mg/dL [facility] Creatinine 0.92 0.80 - 1.30 mg/dL [facility] Glucose 102 70 - 199 mg/dL [facility] Comment: Interpretive Data Fasting glucose >/= [...] 2017. Calcium 9.4 8.5 - 10.3 mg/dL [facility] Blood 06/26/2021 11:4 7 PM CDT 06/27/2021 12:11 AM CDT Cassie Trent NP LAB BLOOD ORDERABLES [facility] al Result [facility] [place] [address] * [place] Modified Barium Swallow W Video [...] signed by: Stepan Scott M.D. Patricia Ferrer NP IMG FLUOROSCOPY PROC EDURES Final Result * [employer] Evaluate and Treat (VFSS) (06/26/2021 1:02 PM CDT) Narrative Mildred Buck SLP - 06/26/2021 1:02 PM Mildred Zhu, JOE ? 06/26/2021 ??2:59 PM Speech-Language Pathology: Videofluoroscopic Study of Swallow (VFSS/MBS) HPI/PMH Per sign in room, pt is [place] and blind Admitted 06/11 HPI/PMH: 71M HTN/HL, a-fib on Eliquis, HFrEF (45-50% EF 2020), COPD not on home O2, legally blind, hearing loss, Ccy p/w trace tSAH and IVH following a fall. Admitted OSH with altered LOC. Initial CT neg but subsequent MRI with tr SAH/IVH. Tx to [facility] NSGY service 06/11 where has remained encephalopathic. Respiratory/Intubation Status: intubated 06/18, now on RA ?? Imaging: CXR 06/17: Streaky right basilar opacities are seen likely representing aspiration. ??Mild pulmonary edema is noted, increased. ??Mild left basilar atelectasis is seen, increased. ?? The costophrenic angles are excluded. ??There is no pneumothorax. ?? The cardiomediastinal silhouette is stable. hCT 06/15: No significant interval change. Evolving small volume intraventricular hemorrhage. The known subarachnoid hemorrhage is not well appreciated, and may be due to portable technique Precautions: seizure, fall, aspiration, [place], low risk non-suicidal self injurious Current Diet Order: NPO Baseline Feeding Status: unknown General Information Jania Redman 06/26/21 [employer] Received On: 06/26/21 General Observations: Pt seen [...] Administered: Thin liquids, Honey thickened liquids, Purees, [place] thickened liquids Respiratory Support: No Significant Impairment- [...] date given pt unable to follow commands [place] Thickened Liquids: Laryngeal Penetration: Present Aspiration Present: Yes Timing: During Amount: Moderate Response to aspiration: None (Flash aspiration during the swallow which cleared from airway into laryngeal vestible; however, material remained deep within laryngeal vestibule and pt did not sense.) Penetration Aspiration Scale-[place]: 6-Material enters the airway, passes below the [...] treatment goals and details, if indicated. Plan [employer] Frequency of Services: 2-4x/wk [employer] Recommendation (Add'l Services): Inpatient Rehab Facility [employer] - Next Appointment: 06/28/21 Next Visit Plan: treatment/therapy Additional Referrals: PT/OT Discharge Summary Statement If this is the last swallow therapy visit, this serves as the discharge summary. AMOL Dias, [facility]-[employer], 06/26/21 2:28 PM us Patricia Ferrer [employer] ORDERABLES Edit ed Result - Final * eGFR (06/25/2021 7:56 PM CDT) Pathologist [facility] eGFR >90 90 - 130 mL/min/1. 73 m2 [facility] Comment: Interpretive Data Reference Interval Normal [...] CDT 06/25/2021 8:04 PM CDT us Cassie Trent [employer] LAB BLOOD ORDERABLES Fin al Result [facility] [place] [address] * Magnesium (06/25/2021 7:56 PM CDT) Pathologist [facility] Magnesium 2.0 1.4 - 2.5 mg/dL [facility] Blood 06/25/2021 7:56 PM CDT 06/25/2021 8:04 PM CDT Tamiko Ray [employer] LAB BLOOD ORDERABLES Final R esult Performing Organization Address [facility]/ZIP Co de Phone Number [facility] [place] [employer] [place] [address] * (ABNORMAL) CBC without differential (06/25/2021 7:56 PM CDT) [facility] WBC 6.3 3.8 - 9.9 K/cumm [facility] Hgb 11.5(L) 13.0 - 17.5 g/dL [facility] Hct 33.5(L) 38.9 - 50.3 % [facility] Plt 228 150 - 400 K/cumm [facility] MPV 9.8 9.1 - 12.3 fL [facility] RBC 3.33(L) 4.30 - 5.80 M/cumm [facility] MCV 100.6(H) 81.3 - 96.4 fL [facility] MCH 34.5(H) 27.1 - 33.3 pg [facility] MCHC 34.3 32.3 - 35.7 g/dL [facility] RDW CV 12.2 11.1 - 14.9 % [facility] RDW SD 44.4 35.7 - 48.1 fL [facility] NRBC abs 0.00 0.00 - 0.01 K/cumm [facility] Blood 06/25/2021 7:56 PM CDT 06/25/2021 8:03 PM CDT Cassie Trent [employer] LAB BLOOD ORDERABLES Fin al Result Performing Organization Address City/[facility]/ZIP Co de Phone Number [facility] [place] [employer] [place] [address] * Basic metabolic panel (06/25/2021 7:56 PM CDT) Pathologist [facility] Sodium 135 135 - 145 mmol/L [facility] Potassium, pl 4.9 3.3 - 4.9 mmol/L [facility] Chloride 100 97 - 110 mmol/L [facility] CO2 29 22 - 32 mmol/L [facility] Anion gap 6 2 - 15 mmol/L [facility] BUN 17 8 - 25 mg/dL [facility] Creatinine 0.85 0.80 - 1.30 mg/dL [facility] Glucose 109 70 - 199 mg/dL [facility] Comment: Interpretive Data Fasting glucose >/= [...] 2017. Calcium 9.4 8.5 - 10.3 mg/dL [facility] Blood 06/25/2021 7:56 PM CDT 06/25/2021 8:04 PM CDT Cassie Trent [employer] LAB BLOOD ORDERABLES Fin al Result Performing Organization Address City/State/[facility] Co de Phone Number [facility] [place] [address] * eGFR (06/25/2021 2:00 AM CDT) Pathologist [facility] eGFR >90 90 - 130 mL/min/1. 73 m2 [facility] Comment: Interpretive Data Reference Interval Normal [...] Kiser MD LAB BLOOD ORDERABLES Final Result [facility] Department [place] [address] * (ABNORMAL) Basic metabolic panel (06/25/2021 2:00 AM CDT) Sodium 135 135 - 145 mmol/L [facility] Potassium, pl 5.1(H) 3.3 - 4.9 mmol/L [facility] Chloride 101 97 - 110 mmol/L [facility] CO2 29 22 - 32 mmol/L [facility] Anion gap 5 2 - 15 mmol/L [facility] BUN 14 8 - 25 mg/dL [facility] Creatinine 0.85 0.80 - 1.30 mg/dL [facility] Glucose 108 70 - 199 mg/dL [facility] Comment: Interpretive Data Fasting glucose >/= [...] 2017. Calcium 8.9 8.5 - 10.3 mg/dL [facility] Blood 06/25/2021 2:00 AM CDT 06/25/2021 2:15 AM CDT us Seth Kiser MD LAB BLOOD ORDERABLES Final Result [facility] [place] [address] * eGFR (06/24/2021 7:44 PM CDT) eGFR >90 90 - 130 mL/min/1. 73 m2 [facility] Comment: Interpretive Data Reference Interval Normal [...] 7:44 PM CDT 06/24/2021 8:17 PM CDT Ciarra Jama NP LAB BLOOD ORDERABLES Final Result Performing Organization Address City/[facility]/ZIP Co de Phone Number [facility] [place] [address] * Magnesium (06/24/2021 7:44 PM CDT) Pathologist [facility] Magnesium 2.1 1.4 - 2.5 mg/dL [facility] Blood 06/24/2021 7:44 PM CDT 06/24/2021 7:53 PM CDT Seth Kiser MD LAB BLOOD ORDERABLES Final Result Performing Organization Address [facility] Co de Phone Number [facility] [place] [address] * Phosphorus (06/24/2021 7:44 PM CDT) Pathologist [facility] Phosphorus, pl 4.0 2.3 - 4.5 mg/dL [facility] Blood 06/24/2021 7:44 PM CDT 06/24/2021 7:53 PM CDT Ciarra aJma NP LAB BLOOD ORDERABLES Final Result Performing Organization Address City/[facility] Co de Phone Number [facility] [place] [address] * (ABNORMAL) Comprehensive metabolic panel (06/24/2021 7:44 PM CDT) Sodium 133(L) 135 - 145 mmol/L [facility] Potassium, pl 4.8 3.3 - 4.9 mmol/L [facility] Comment:Hemolyzed; Potassium value may be falsely elevated by as much as 0.3-0.5 mmol/L. Suggest redraw and reanalysis. Chloride 99 97 - 110 mmol/L [facility] CO2 27 22 - 32 mmol/L [facility] Anion gap 7 2 - 15 mmol/L [facility] BUN 15 8 - 25 mg/dL [facility] Creatinine 0.79(L) 0.80 - 1.30 mg/dL [facility] Glucose 123 70 - 199 mg/dL [facility] Comment: Interpretive Data Fasting glucose >/= [...] 2017. Calcium 9.0 8.5 - 10.3 mg/dL [facility] Bilirubin, total 0.2 0.1 - 1.2 mg/dL [facility] Protein, pl 6.1(L) 6.5 - 8.5 g/dL [facility] Albumin 3.0(L) 3.5 - 5.0 g/dL [facility] Alk phos 88 40 - 130 Units/L [facility] ALT 16 7 - 55 Units/L [facility] AST 26 10 - 50 Units/L [facility] Comment:Hemolyzed; result ma y be falsely elevated Blood 06/24/2021 7:44 PM CDT 06/24/2021 7:53 PM CDT Ciarra Jama NP LAB BLOOD ORDERABLES Final Result [facility] [place] [address] * (ABNORMAL) CBC without differential (06/24/2021 7:44 PM CDT) [facility] WBC 6.1 3.8 - 9.9 K/cumm [facility] Hgb 11.8(L) 13.0 - 17.5 g/dL [facility] Hct 34.5(L) 38.9 - 50.3 % [facility] Plt 252 150 - 400 K/cumm [facility] MPV 10.5 9.1 - 12.3 fL [facility] RBC 3.43(L) 4.30 - 5.80 M/cumm [facility] MCV 100.6(H) 81.3 - 96.4 fL [facility] MCH 34.4(H) 27.1 - 33.3 pg [facility] MCHC 34.2 32.3 - 35.7 g/dL [facility] RDW CV 12.1 11.1 - 14.9 % [facility] RDW SD 44.6 35.7 - 48.1 fL [facility] NRBC abs 0.00 0.00 - 0.01 K/cumm [facility] Blood 06/24/2021 7:44 PM CDT 06/24/2021 8:17 PM CDT Cassie Trent [employer] LAB BLOOD ORDERABLES Fin al Result Performing Organization Address City/State/[facility] Co de Phone Number [facility] [place] [address] * eGFR (06/23/2021 9:50 PM CDT) [facility] eGFR >90 90 - 130 mL/min/1. 73 m2 [facility] Comment: Interpretive Data Reference Interval Normal [...] PM CDT 06/23/2021 10:06 PM CDT Cassie Trent [employer] LAB BLOOD ORDERABLES Fin al Result Performing Organization Address City/[facility] Co de Phone Number [facility] Department [place] [address] * Magnesium (06/23/2021 9:50 PM CDT) Magnesium 2.0 1.4 - 2.5 mg/dL [facility] Blood 06/23/2021 9:50 PM CDT 06/23/2021 10:06 PM CDT Tamiko Ray [employer] LAB BLOOD ORDERABLES Final R esult Performing Organization Address City/[facility]/ZIP Co de Phone Number [facility] Department [place] [address] * (ABNORMAL) CBC without differential (06/23/2021 9:50 PM CDT) WBC 6.3 3.8 - 9.9 K/cumm [facility] Hgb 11.0(L) 13.0 - 17.5 g/dL [facility] Hct 32.6(L) 38.9 - 50.3 % [facility] Plt 227 150 - 400 K/cumm [facility] MPV 10.4 9.1 - 12.3 fL [facility] RBC 3.22(L) 4.30 - 5.80 M/cumm [facility] MCV 101.2(H) 81.3 - 96.4 fL [facility] MCH 34.2(H) 27.1 - 33.3 pg [facility] MCHC 33.7 32.3 - 35.7 g/dL [facility] RDW CV 12.3 11.1 - 14.9 % [facility] RDW SD 45.1 35.7 - 48.1 fL [facility] NRBC abs 0.00 0.00 - 0.01 K/cumm [facility] Blood 06/23/2021 9:50 PM CDT 06/23/2021 10:06 PM CDT Cassie Trent [employer]ER LAB BLOOD ORDERABLES Fin al Result [facility] [place] [address] * Basic metabolic panel (06/23/2021 9:50 PM CDT) Pathologist [facility] Sodium 137 135 - 145 mmol/L [facility] Potassium, pl 4.7 3.3 - 4.9 mmol/L [facility] Chloride 102 97 - 110 mmol/L [facility] CO2 30 22 - 32 mmol/L [facility] Anion gap 5 2 - 15 mmol/L [facility] BUN 15 8 - 25 mg/dL [facility] Creatinine 0.81 0.80 - 1.30 mg/dL [facility] Glucose 80 70 - 199 mg/dL [facility] Comment: Interpretive Data Fasting glucose >/= [...] 2017. Calcium 9.0 8.5 - 10.3 mg/dL [facility] Blood 06/23/2021 9:50 PM CDT 06/23/2021 10:06 PM CDT us Cassie Trent [employer] LAB BLOOD ORDERABLES Fin al Result [facility] [place] [address] * eGFR (06/22/2021 8:38 PM CDT) eGFR >90 90 - 130 mL/min/1. 73 m2 [facility] Comment: Interpretive Data Reference Interval Normal [...] of Race in Diagnosing Kidney Disease, JASN 2021). The CKD-EPI equation should not be used for patients with unstable renal function and has not been validated in children and those over 70. Current interpretive data was last reviewed 2021. Blood 06/22/2021 8:38 PM CDT 06/22/2021 8:52 PM CDT Cassie Ternt FISH S[employer]ER LAB BLOOD ORDERABLES Fin al Result Performing Organization Address City/[facility]/ZIP Co de Phone Number [facility] [place] [address] * Magnesium (06/22/2021 8:38 PM CDT) [facility] Magnesium 2.3 1.4 - 2.5 mg/dL [facility] Blood 06/22/2021 8:38 PM CDT 06/22/2021 8:52 PM CDT Tamiko Ray [employer] LAB BLOOD ORDERABLES Final R esult Performing Organization Address [facility] de Phone Number [facility] [place] [address] * (ABNORMAL) CBC without differential (06/22/2021 8:38 PM CDT) Pathologist [facility] WBC 8.1 3.8 - 9.9 K/cumm [facility] Hgb 10.7(L) 13.0 - 17.5 g/dL [facility] Hct 30.5(L) 38.9 - 50.3 % [facility] Plt 198 150 - 400 K/cumm [facility] MPV 11.0 9.1 - 12.3 fL [facility] RBC 3.05(L) 4.30 - 5.80 M/cumm [facility] MCV 100.0(H) 81.3 - 96.4 fL [facility] MCH 35.1(H) 27.1 - 33.3 pg [facility] MCHC 35.1 32.3 - 35.7 g/dL [facility] RDW CV 12.3 11.1 - 14.9 % [facility] RDW SD 44.9 35.7 - 48.1 fL [facility] NRBC abs 0.00 0.00 - 0.01 K/cumm [facility] Blood 06/22/2021 8:38 PM CDT 06/22/2021 8:53 PM CDT Cassie Trent [employer] LAB BLOOD ORDERABLES Fin al Result [facility] [place] [address] * Basic metabolic panel (06/22/2021 8:38 PM CDT) Sodium 138 135 - 145 mmol/L [facility] Potassium, pl 4.6 3.3 - 4.9 mmol/L [facility] Chloride 103 97 - 110 mmol/L [facility] CO2 31 22 - 32 mmol/L [facility] Anion gap 4 2 - 15 mmol/L [facility] BUN 14 8 - 25 mg/dL [facility] Creatinine 0.84 0.80 - 1.30 mg/dL [facility] Glucose 120 70 - 199 mg/dL [facility] Comment: Interpretive Data Fasting glucose >/= [...] 2017. Calcium 9.3 8.5 - 10.3 mg/dL [facility] Blood 06/22/2021 8:38 PM CDT 06/22/2021 8:52 PM CDT Cassie Postckal [employer] S[employer]ER LAB BLOOD ORDERABLES Fin al Result Performing Organization Address [facility] Co de Phone Number [facility] [place] [address] * eGFR (06/21/2021 9:06 PM CDT) eGFR >90 90 - 130 mL/min/1. 73 m2 [facility] Comment: Interpretive Data Reference Interval Normal [...] PM CDT 06/21/2021 9:30 PM CDT Cassie Rika Trent [employer] LAB BLOOD ORDERABLES Fin al Result Performing Organization Address [facility] Co de Phone Number [facility] [place] [address] * (ABNORMAL) Magnesium (06/21/2021 9:06 PM CDT) [facility] Magnesium 2.6(H) 1.4 - 2.5 mg/dL [facility] Blood 06/21/2021 9:06 PM CDT 06/21/2021 9:30 PM CDT Tamiko Ray [employer] LAB BLOOD ORDERABLES Final R esult Performing Organization Address [facility]/ZIP Co de Phone Number [facility] Department [place] [address] * (ABNORMAL) CBC without differential (06/21/2021 9:06 PM CDT) [facility] WBC 9.4 3.8 - 9.9 K/cumm [facility] Hgb 12.2(L) 13.0 - 17.5 g/dL [facility] Hct 36.0(L) 38.9 - 50.3 % [facility] Plt 227 150 - 400 K/cumm [facility] MPV 10.4 9.1 - 12.3 fL [facility] RBC 3.58(L) 4.30 - 5.80 M/cumm [facility] MCV 100.6(H) 81.3 - 96.4 fL [facility] MCH 34.1(H) 27.1 - 33.3 pg [facility] MCHC 33.9 32.3 - 35.7 g/dL [facility] RDW CV 12.2 11.1 - 14.9 % [facility] RDW SD 45.2 35.7 - 48.1 fL [facility] NRBC abs 0.00 0.00 - 0.01 K/cumm [facility] Blood 06/21/2021 9:06 PM CDT 06/21/2021 9:31 PM CDT Cassie Trent [employer] LAB BLOOD ORDERABLES Fin al Result [facility] Department [place] [address] * Basic metabolic panel (06/21/2021 9:06 PM CDT) Sodium 140 135 - 145 mmol/L [facility] Potassium, pl 4.3 3.3 - 4.9 mmol/L [facility] Chloride 102 97 - 110 mmol/L [facility] CO2 29 22 - 32 mmol/L [facility] Anion gap 9 2 - 15 mmol/L [facility] BUN 14 8 - 25 mg/dL [facility] Creatinine 0.87 0.80 - 1.30 mg/dL [facility] Glucose 113 70 - 199 mg/dL [facility] Comment: Interpretive Data Fasting glucose >/= [...] 2017. Calcium 8.9 8.5 - 10.3 mg/dL [facility] Blood 06/21/2021 9:06 PM CDT 06/21/2021 9:30 PM CDT us Cassie Trent [employer] LAB BLOOD ORDERABLES Fin al Result [facility] [place] [address] * Magnesium (06/20/2021 9:25 PM CDT) Magnesium 1.7 1.4 - 2.5 mg/dL [facility] Blood 06/20/2021 9:25 PM CDT 06/20/2021 9:53 PM CDT us Tamiko Ryann Nahlik [employer] LAB BLOOD ORDERABLES Final R esult Performing Organization Address [facility] Co de Phone Number [facility] Department [place] [address] * eGFR (06/20/2021 9:25 PM CDT) eGFR >90 90 - 130 mL/min/1. 73 m2 [facility] Comment: Interpretive Data Reference Interval Normal [...] PM CDT 06/20/2021 9:53 PM CDT Cassie Trent [employer] LAB BLOOD ORDERABLES Fin al Result Performing Organization Address [facility] Co de Phone Number D[facility] Department [place] [address] * (ABNORMAL) CBC without differential (06/20/2021 9:25 PM CDT) [facility] WBC 8.1 3.8 - 9.9 K/cumm [facility] Hgb 9.8(L) 13.0 - 17.5 g/dL [facility] Hct 29.1(L) 38.9 - 50.3 % [facility] Plt 163 150 - 400 K/cumm [facility] MPV 11.0 9.1 - 12.3 fL [facility] RBC 2.84(L) 4.30 - 5.80 M/cumm [facility] MCV 102.5(H) 81.3 - 96.4 fL [facility] MCH 34.5(H) 27.1 - 33.3 pg [facility] MCHC 33.7 32.3 - 35.7 g/dL [facility] RDW CV 12.1 11.1 - 14.9 % [facility] RDW SD 45.8 35.7 - 48.1 fL [facility] NRBC abs 0.00 0.00 - 0.01 K/cumm [facility] Blood 06/20/2021 9:25 PM CDT 06/20/2021 9:53 PM CDT Cassie Trent FISH SMOKER LAB BLOOD ORDERABLES Fin al Result [facility] [place] [address] * (ABNORMAL) Basic metabolic panel (06/20/2021 9:25 PM CDT) [facility] Sodium 143 135 - 145 mmol/L [facility] Potassium, pl 3.6 3.3 - 4.9 mmol/L [facility] Chloride 110 97 - 110 mmol/L [facility] CO2 28 22 - 32 mmol/L [facility] Anion gap 5 2 - 15 mmol/L [facility] BUN 12 8 - 25 mg/dL [facility] Creatinine 0.70(L) 0.80 - 1.30 mg/dL [facility] Glucose 110 70 - 199 mg/dL [facility] Comment: Interpretive Data Fasting glucose >/= [...] 2017. Calcium 7.3(L) 8.5 - 10.3 mg/dL [facility] Blood 06/20/2021 9:25 PM CDT 06/20/2021 9:53 PM CDT Cassie Trent FISH SMOKER LAB BLOOD ORDERABLES Fin al Result Performing Organization Address [facility] de Phone Number [facility] Department [place] [address] * (ABNORMAL) Blood gas, arterial (06/20/2021 8:12 AM CDT) pH, Art 7.42 7.35 - 7.45 [facility] PCO2, Arterial 43 35 - 45 mmHg [facility] PO2, Arterial 110(H) 83 - 108 mmHg [facility] HCO3 Art (Calculated) 29 20 - 30 mmol/L [facility] BE, art 3 mmol/L [facility] Comment: Interpretive Data No Reference Range Established Current Interpretive Data was last revised on 2017 O2 Sat Art (Measured) 99(H) 90 - 95 % [facility] Blood 06/20/2021 8:12 AM CDT 06/20/2021 8:26 AM CDT Tamiko Ray FISH SMOKER LAB BLOOD ORDERABLES Final R esult Performing Organization Address [facility] de Phone Number [facility] Department [place] [address] * Magnesium (06/19/2021 8:26 PM CDT) Magnesium 2.4 1.4 - 2.5 mg/dL [facility] Blood 06/19/2021 8:26 PM CDT 06/19/2021 8:47 PM CDT us Seth Kiser MD LAB BLOOD ORDERABLES Final Result [facility] [place] [address] * eGFR (06/19/2021 8:26 PM CDT) eGFR >90 90 - 130 mL/min/1. 73 m2 [facility] Comment: Interpretive Data Reference Interval Normal [...] CDT 06/19/2021 8:47 PM CDT Cassie Trent FISH SMOKER LAB BLOOD ORDERABLES Fin al Result Performing Organization Address [facility] Co de Phone Number [facility] Department [place] [address] * (ABNORMAL) CBC without differential (06/19/2021 8:26 PM CDT) WBC 7.9 3.8 - 9.9 K/cumm [facility] Hgb 11.6(L) 13.0 - 17.5 g/dL [facility] Hct 35.1(L) 38.9 - 50.3 % [facility] Plt 192 150 - 400 K/cumm [facility] MPV 11.1 9.1 - 12.3 fL [facility] RBC 3.42(L) 4.30 - 5.80 M/cumm [facility] MCV 102.6(H) 81.3 - 96.4 fL [facility] MCH 33.9(H) 27.1 - 33.3 pg [facility] MCHC 33.0 32.3 - 35.7 g/dL [facility] RDW CV 12.3 11.1 - 14.9 % [facility] RDW SD 46.6 35.7 - 48.1 fL [facility] NRBC abs 0.00 0.00 - 0.01 K/cumm [facility] Blood 06/19/2021 8:26 PM CDT 06/19/2021 8:47 PM CDT Cassie Trent FISH SMOKER LAB BLOOD ORDERABLES Fin al Result Performing Organization Address [facility]/ZIP Co de Phone Number [facility] [place] [address] * Basic metabolic panel (06/19/2021 8:26 PM CDT) Sodium 144 135 - 145 mmol/L [facility] Potassium, pl 4.4 3.3 - 4.9 mmol/L [facility] Chloride 107 97 - 110 mmol/L [facility] CO2 30 22 - 32 mmol/L [facility] Anion gap 7 2 - 15 mmol/L [facility] BUN 14 8 - 25 mg/dL [facility] Creatinine 0.86 0.80 - 1.30 mg/dL [facility] Glucose 133 70 - 199 mg/dL [facility] Comment: Interpretive Data Fasting glucose >/= [...] 2017. Calcium 9.1 8.5 - 10.3 mg/dL [facility] Blood 06/19/2021 8:26 PM CDT 06/19/2021 8:47 PM CDT Cassie Trent NP LAB BLOOD ORDERABLES Fin al Result [facility] [place] [address] * XR Abdomen Ap 1 Vw (06/19/2021 4:38 AM CDT) Anatomical Region Laterality Modality Body, Abdomen N/A Computed Radiogr aphy 06/19/2021 8:15 AM CDT Impressions 06/19/2021 8:18 AM CDT A single view of the abdomen is submitted for evaluation. Gastric tube tip and side-port projecting over the gastric body. Partially visualized nonobstructive bowel gas pattern. The inferior pelvis is collimated off the [id number]. Dictated by: Srinivasan Holder M.D. The radiology [...] The inferior pelvis is collimated off the [id number]. Dictated by: Srinivasan Holder M.D. The radiology attending physician has personally reviewed this study, and had reviewed and/or edited this written report and agrees with it. Electronically signed by: Tamar Bonilla M.D. us Candace Cummings NP IMG XR PROCEDURES Final Resu lt * eGFR (06/18/2021 10:02 PM CDT) [facility] eGFR >90 90 - 130 mL/min/1. 73 m2 [facility] Comment: Interpretive Data Reference Interval Normal [...] Kiser MD LAB BLOOD ORDERABLES Final Result [facility] Department [place] [address] * (ABNORMAL) Comprehensive metabolic panel (06/18/2021 10:02 PM CDT) Sodium 148(H) 135 - 145 mmol/L [facility] Potassium, pl 3.4 3.3 - 4.9 mmol/L [facility] Chloride 114(H) 97 - 110 mmol/L [facility] CO2 27 22 - 32 mmol/L [facility] Anion gap 7 2 - 15 mmol/L [facility] BUN 14 8 - 25 mg/dL [facility] Creatinine 0.70(L) 0.80 - 1.30 mg/dL [facility] Glucose 115 70 - 199 mg/dL [facility] Comment: Interpretive Data Fasting glucose >/= [...] 2017. Calcium 7.4(L) 8.5 - 10.3 mg/dL [facility] Bilirubin, total 0.2 0.1 - 1.2 mg/dL [facility] Protein, pl 5.0(L) 6.5 - 8.5 g/dL [facility] Albumin 2.4(L) 3.5 - 5.0 g/dL [facility] Alk phos 91 40 - 130 Units/L [facility] ALT 12 7 - 55 Units/L [facility] AST 18 10 - 50 Units/L [facility] Blood 06/18/2021 10:0 2 PM CDT 06/18/2021 11:30 PM CDT us Seth Kiser MD LAB BLOOD ORDERABLES Final Result Performing Organization Address [facility] Co de Phone Number [facility] Department [place] [address] * Phosphorus (06/18/2021 10:02 PM CDT) Phosphorus, pl 3.7 2.3 - 4.5 mg/dL [facility] Blood 06/18/2021 10:0 2 PM CDT 06/18/2021 11:30 PM CDT Patricia Ferrer NP LAB BLOOD ORDERABLES Final Result Performing Organization Address City/[facility]/ZIP Co de Phone Number [facility] Department [place] [address] * Magnesium (06/18/2021 10:02 PM CDT) Magnesium 1.8 1.4 - 2.5 mg/dL [facility] Blood 06/18/2021 10:0 2 PM CDT 06/18/2021 11:30 PM CDT Patricia Ferrer FISH SMOKER LAB BLOOD ORDERABLES Final Result Performing Organization Address City/[facility]/ZIP Co de Phone Number [facility] Department [place] [address] * (ABNORMAL) CBC without differential (06/18/2021 10:02 PM CDT) WBC 5.3 3.8 - 9.9 K/cumm [facility] Hgb 9.7(L) 13.0 - 17.5 g/dL [facility] Hct 29.4(L) 38.9 - 50.3 % [facility] Plt 141(L) 150 - 400 K/cumm [facility] MPV 11.6 9.1 - 12.3 fL [facility] RBC 2.78(L) 4.30 - 5.80 M/cumm [facility] MCV 105.8(H) 81.3 - 96.4 fL [facility] MCH 34.9(H) 27.1 - 33.3 pg [facility] MCHC 33.0 32.3 - 35.7 g/dL [facility] RDW CV 12.4 11.1 - 14.9 % [facility] RDW SD 48.7(H) 35.7 - 48.1 fL [facility] NRBC abs 0.00 0.00 - 0.01 K/cumm [facility] Blood 06/18/2021 10:0 2 PM CDT 06/18/2021 11:30 PM CDT Cassie Trent FISH SMOKER LAB BLOOD ORDERABLES Fin al Result Performing Organization Address City/State/[facility] Co de Phone Number [facility] [place] [address] * XR Femur Left 2 or More Views (06/18/2021 6:58 PM CDT) Anatomical Region Laterality Modality Lower Extremities, Thigh, Femur Left Computed Radiography 06/19/2021 6:32 AM CDT Impressions 06/19/2021 [...] Electronically signed by: Davie Peterson MD, PHD us Seth Kiser MD IMG XR PROCEDURES [...] Electronically signed by: Davie Peterson MD, PHD us Seth Kiser MD IMG XR PROCEDURES Final Res ult * CT Pelvis W Contrast (06/17/2021 10:57 PM SCALE MECHANIC) Anatomical Region Laterality Modality Body N/A Computed Tomogra phy 06/17/2021 11:1 6 PM SCALE MECHANIC Impressions 06/18/2021 9:35 AM CDT 1. Small [...] signed by: Zaki Crowell M.D. Patricia Ferrer FISH SMOKER IMG CT PROCEDURES Fi nal Result * eGFR (06/17/2021 10:03 PM SCALE MECHANIC) Pathologist [facility] eGFR >90 90 - 130 mL/min/1. 73 m2 [facility] Comment: Interpretive Data Reference Interval Normal [...] reviewed 2021. Blood 06/17/2021 10:0 3 PM SCALE MECHANIC 06/17/2021 10:47 PM SCALE MECHANIC Cassie Trent FISH SMOKER LAB BLOOD ORDERABLES Fin al Result [facility] Department [place] [address] * (ABNORMAL) Blood gas, arterial (06/17/2021 10:03 PM SCALE MECHANIC) Pathologist [facility] pH, Art 7.45 7.35 - 7.45 [facility] PCO2, Arterial 41 35 - 45 mmHg [facility] PO2, Arterial 170(H) 83 - 108 mmHg [facility] HCO3 Art (Calculated) 30 20 - 30 mmol/L [facility] BE, art 4 mmol/L [facility] Comment: Interpretive Data No Reference Range Established Current Interpretive Data was last revised on 2017 O2 Sat Art (Measured) 99(H) 90 - 95 % [facility] Blood 06/17/2021 10:0 3 PM SCALE MECHANIC 06/17/2021 10:38 PM SCALE MECHANIC us Digna Carter NP LAB BLOOD ORDERABLES Final Resul t [facility] [place] [address] * (ABNORMAL) CBC without differential (06/17/2021 10:03 PM SCALE MECHANIC) WBC 6.6 3.8 - 9.9 K/cumm [facility] Hgb 10.7(L) 13.0 - 17.5 g/dL [facility] Hct 33.0(L) 38.9 - 50.3 % [facility] Plt 151 150 - 400 K/cumm [facility] MPV 11.8 9.1 - 12.3 fL [facility] RBC 3.11(L) 4.30 - 5.80 M/cumm [facility] MCV 106.1(H) 81.3 - 96.4 fL [facility] MCH 34.4(H) 27.1 - 33.3 pg [facility] MCHC 32.4 32.3 - 35.7 g/dL [facility] RDW CV 12.7 11.1 - 14.9 % [facility] RDW SD 49.7(H) 35.7 - 48.1 fL [facility] NRBC abs 0.00 0.00 - 0.01 K/cumm [facility] Blood 06/17/2021 10:0 3 PM SCALE MECHANIC 06/17/2021 10:45 PM SCALE MECHANIC Cassie Rika Trent FISH SMOKER LAB BLOOD ORDERABLES Fin al Result [facility] [place] [address] * (ABNORMAL) Basic metabolic panel (06/17/2021 10:03 PM SCALE MECHANIC) Sodium 147(H) 135 - 145 mmol/L [facility] Potassium, pl 4.3 3.3 - 4.9 mmol/L [facility] Chloride 110 97 - 110 mmol/L [facility] CO2 31 22 - 32 mmol/L [facility] Anion gap 6 2 - 15 mmol/L [facility] BUN 17 8 - 25 mg/dL [facility] Creatinine 0.80 0.80 - 1.30 mg/dL [facility] Glucose 152 70 - 199 mg/dL [facility] Comment: Interpretive Data Fasting glucose >/= [...] 2017. Calcium 8.8 8.5 - 10.3 mg/dL [facility] Blood 06/17/2021 10:0 3 PM SCALE MECHANIC 06/17/2021 10:40 PM SCALE MECHANIC Cassie Trent FISH SMOKER LAB BLOOD ORDERABLES Fin al Result [facility] Department [place] [address] * Magnesium (06/17/2021 10:03 PM SCALE MECHANIC) Pathologist [facility] Magnesium 2.3 1.4 - 2.5 mg/dL [facility] Blood 06/17/2021 10:0 3 PM SCALE MECHANIC 06/17/2021 10:40 PM SCALE MECHANIC Cassie Trent FISH SMOKER LAB BLOOD ORDERABLES Fin al Result Performing Organization Address [facility] de Phone Number [facility] [place] [address] * Phosphorus (06/17/2021 10:03 PM SCALE MECHANIC) Phosphorus, pl 3.3 2.3 - 4.5 mg/dL [facility] Blood 06/17/2021 10:0 3 PM SCALE MECHANIC 06/17/2021 10:40 PM SCALE MECHANIC [facility] FISH SMOKER LAB BLOOD ORDERABLES Fin al Result Performing Organization Address [facility] de Phone Number [facility] [place] [address] * XR Chest 1 View (06/17/2021 9:20 PM SCALE MECHANIC) Anatomical Region Laterality Modality Body, Chest N/A [...] by: Lupillo Martinez M.D. us Digna Carter FISH SMOKER IMG XR PROCEDURES Final Result * US Scrotum (06/17/2021 7:13 PM SCALE MECHANIC) Anatomical Region Laterality Modality Testis N/A Ultrasound 06/17/2021 7:26 PM SCALE MECHANIC Impressions 06/18/2021 11:50 AM CDT 1. Normal [...] gram stain Abscess Scrotum (06/17/2021 1:47 PM SCALE MECHANIC) Direct Specimen Exam Stain: Abundant polymorphonuclear leukocytes seen. Abundant Gram Positive Cocci Moderate Gram Negative Bacilli [facility] Report Final Report: Abundant Bacteroides fragilis A molecular marker associated with carbapenem resistance has been detected in this isolate of Bacteroides fragilis. Please see phenotypic antimicrobial susceptibility testing result. Susceptibilities performed by [facility] [employer], ?? * ??* ??* ??* ??* ??* ??* ??* ??* ??* ??* ??* ??* ??* ??* ??* ??* ??* ??* ??* For Bacteroides fragilis susceptibility results, see attached scanned report. * ??* ??* ??* ??* ??* ??* ??* ??* ??* ??* ??* ??* ??* ??* ??* ??* ??* ??* ??* Few Mixed microorganisms. (.) [facility] Organism MIXED MICROORGANISMS. [facility] Organism BACTEROIDES FRAGILIS [facility] Abscess (Scrotum) 06/17/2021 1:47 PM SCALE MECHANIC 06/17/2021 4:35 PM SCALE MECHANIC Narrative [facility] - 06/28/2021 10:46 AM CDT Testing performed by [facility] ([phone]) Specimens submitted from normally sterile body sites [...] GENERAL ORDERABLES Final Result Performing Organization Address [facility]/State/[facility] Co de Phone Number [facility] [place] [address] * eGFR (06/17/2021 8:17 AM SCALE MECHANIC) eGFR >90 90 - 130 mL/min/1. 73 m2 [facility] Comment: Interpretive Data Reference Interval Normal [...] last reviewed 2021. Blood 06/17/2021 8:17 AM SCALE MECHANIC 06/17/2021 9:37 AM SCALE MECHANIC [facility] Fin al Result Performing Organization Address City/[facility]/ZIP Co de Phone Number [facility] [place] [address] * (ABNORMAL) Magnesium (06/17/2021 8:17 AM SCALE MECHANIC) Magnesium 2.7(H) 1.4 - 2.5 mg/dL [facility] Blood 06/17/2021 8:17 AM SCALE MECHANIC 06/17/2021 9:37 AM SCALE MECHANIC Cassie Trent LAB BLOOD ORDERABLES Fin al Result [facility] Department [place] [address] * Phosphorus (06/17/2021 8:17 AM SCALE MECHANIC) Phosphorus, pl 2.9 2.3 - 4.5 mg/dL [facility] Blood 06/17/2021 8:17 AM SCALE MECHANIC 06/17/2021 9:37 AM SCALE MECHANIC Cassie Trent LAB BLOOD ORDERABLES Fin al Result Performing Organization Address City/[facility]/ZIP Co de Phone Number [facility] Department [place] [address] * (ABNORMAL) Basic metabolic panel (06/17/2021 8:17 AM SCALE MECHANIC) [facility] Sodium 144 135 - 145 mmol/L [facility] Potassium, pl 4.3 3.3 - 4.9 mmol/L [facility] Chloride 110 97 - 110 mmol/L [facility] CO2 30 22 - 32 mmol/L [facility] Anion gap 4 2 - 15 mmol/L [facility] BUN 17 8 - 25 mg/dL [facility] Creatinine 0.79(L) 0.80 - 1.30 mg/dL [facility] Glucose 150 70 - 199 mg/dL [facility] Comment: Interpretive Data Fasting glucose >/= [...] 2017. Calcium 8.6 8.5 - 10.3 mg/dL [facility] Blood 06/17/2021 8:17 AM SCALE MECHANIC 06/17/2021 9:37 AM SCALE MECHANIC Cassie Trent LAB BLOOD ORDERABLES Fin al Result Performing Organization Address [facility] Co de Phone Number [facility] Department [place] [address] * Calcium, ionized (06/16/2021 11:47 PM SCALE MECHANIC) Pathologist [facility] Calcium, Ionized 4.81 4.50 - 5.10 mg/dL [facility] Blood 06/16/2021 11:4 7 PM SCALE MECHANIC 06/16/2021 11:57 PM SCALE MECHANIC Digna Carter FISH SMOKER LAB BLOOD ORDERABLES Final Resul t Performing Organization Address [facility] de Phone Number [facility] Department [place] [address] * (ABNORMAL) Blood gas, arterial (06/16/2021 10:24 PM SCALE MECHANIC) [facility] pH, Art 7.46(H) 7.35 - 7.45 [facility] PCO2, Arterial 40 35 - 45 mmHg [facility] PO2, Arterial 107 83 - 108 mmHg [facility] HCO3 Art (Calculated) 29 20 - 30 mmol/L [facility] BE, art 4 mmol/L [facility] Comment: Interpretive Data No Reference Range Established Current Interpretive Data was last revised on 2017 O2 Sat Art (Measured) 99(H) 90 - 95 % [facility] Blood 06/16/2021 10:2 4 PM SCALE MECHANIC 06/16/2021 10:33 PM SCALE MECHANIC Digna Carter NP LAB BLOOD ORDERABLES Final Resul t Performing Organization Address [facility] de Phone Number [facility] [place] [address] * eGFR (06/16/2021 9:35 PM SCALE MECHANIC) [facility] eGFR >90 90 - 130 mL/min/1. 73 m2 [facility] Comment: Interpretive Data Reference Interval Normal [...] last reviewed 2021. Blood 06/16/2021 9:35 PM SCALE MECHANIC 06/16/2021 10:05 PM SCALE MECHANIC Cassie Trent FISH SMOKER LAB BLOOD ORDERABLES Fin al Result [facility] [place] [address] * (ABNORMAL) CBC without differential (06/16/2021 9:35 PM SCALE MECHANIC) Pathologist [facility] WBC 5.3 3.8 - 9.9 K/cumm [facility] Hgb 8.9(L) 13.0 - 17.5 g/dL [facility] Comment:No apparent cause fo r delta. Discrepancy noted. Delicia Recinos RN Hct 27.5(L) 38.9 - 50.3 % [facility] Plt 101(L) 150 - 400 K/cumm [facility] MPV 11.3 9.1 - 12.3 fL [facility] RBC 2.58(L) 4.30 - 5.80 M/cumm [facility] MCV 106.6(H) 81.3 - 96.4 fL [facility] Comment:No apparent cause fo r delta. Delicia Recinos RN MCH 34.5(H) 27.1 - 33.3 pg [facility] MCHC 32.4 32.3 - 35.7 g/dL [facility] RDW CV 13.1 11.1 - 14.9 % [facility] RDW SD 51.0(H) 35.7 - 48.1 fL [facility] NRBC abs 0.00 0.00 - 0.01 K/cumm [facility] Blood 06/16/2021 9:35 PM SCALE MECHANIC 06/16/2021 10:01 PM SCALE MECHANIC Cassie Trent NP LAB BLOOD ORDERABLES Fin al Result [facility] [place] [address] * (ABNORMAL) Basic metabolic panel (06/16/2021 9:35 PM SCALE MECHANIC) Sodium 149(H) 135 - 145 mmol/L [facility] Potassium, pl 3.0(L) 3.3 - 4.9 mmol/L [facility] Chloride 118(H) 97 - 110 mmol/L [facility] CO2 26 22 - 32 mmol/L [facility] Anion gap 5 2 - 15 mmol/L [facility] BUN 15 8 - 25 mg/dL [facility] Creatinine 0.69(L) 0.80 - 1.30 mg/dL [facility] Glucose 149 70 - 199 mg/dL [facility] Comment: Interpretive Data Fasting glucose >/= [...] 2017. Calcium 6.9(L) 8.5 - 10.3 mg/dL [facility] Blood 06/16/2021 9:35 PM SCALE MECHANIC 06/16/2021 9:59 PM SCALE MECHANIC Cassie Rika Trent FISH SMOKER LAB BLOOD ORDERABLES Fin al Result Performing Organization Address City/[facility] Co de Phone Number [facility] [place] [place] [address] * Magnesium (06/16/2021 9:35 PM SCALE MECHANIC) Magnesium 1.6 1.4 - 2.5 mg/dL [facility] Blood 06/16/2021 9:35 PM SCALE MECHANIC 06/16/2021 9:59 PM SCALE MECHANIC Cassiediony Trent FISH SMOKER LAB BLOOD ORDERABLES Fin al Result Performing Organization Address [facility] de Phone Number [facility] [place] [employer] [address] * Phosphorus (06/16/2021 9:35 PM SCALE MECHANIC) Phosphorus, pl 2.5 2.3 - 4.5 mg/dL [facility] Blood 06/16/2021 9:35 PM SCALE MECHANIC 06/16/2021 9:59 PM SCALE MECHANIC Cassie Murraymario Trent FISH SMOKER LAB BLOOD ORDERABLES Fin al Result Performing Organization Address [facility] [place] [address] * XR Chest 1 View (06/16/2021 9:27 PM SCALE MECHANIC) Anatomical Region Laterality Modality Body, Chest N/A Computed Radiogr aphy 06/17/2021 7:52 AM SCALE MECHANIC Impressions 06/17/2021 7:52 AM SCALE MECHANIC Comparison, 06/15/2021. Endotracheal tube tip is 3 [...] Laura Conner M.D. Narrative 06/17/2021 7:52 AM SCALE MECHANIC EXAMINATION: 1 view chest radiograph Procedure Note [...] Electronically signed by: Laura Conner M.D. Digna Raul FISH SMOKER IMG XR PROCEDURES Final Result * Aerobic culture and gram stain Tracheal aspirate Sputum (Cytology) (06/16/2021 6:48 PM SCALE MECHANIC) Direct Specimen Exam Stain: Abundant polymorphonuclear leukocytes seen. Few squamous epithelial cells seen. Moderate mixed bacterial clifton seen on Gram stain. [facility] Report Final Report: Insignificant growth based on current clinical standards. [facility] Tracheal aspirate (Sputum) 06/16/2021 6:48 PM SCALE MECHANIC 06/16/2021 6:55 PM SCALE MECHANIC Narrative [facility] - 06/19/2021 9:56 AM CDT Testing performed by [facility] ([phone]) Specimens submitted from normally sterile body sites will have all bacterial morphotypes identified. ??Specimens that contain grossly mixed clifton and/or are from body sites that are not normally sterile will be examined for Staphylococcus aureus, Pseudomonas aeruginosa, beta-hemolytic strep, vancomycin-resistant Enterococcus and fungus. ??If any of these are isolated, the organism will be reported. Current interpretive data was last revised on 2016. us Patricia Ferrer NP LAB MICROBIOLOGY - G ENERAL ORDERABLES Final Result [facility] [place] [address] * eGFR (06/16/2021 9:02 AM SCALE MECHANIC) eGFR >90 90 - 130 mL/min/1. 73 m2 [facility] Comment: Interpretive Data Reference Interval Normal [...] last reviewed 2021. Blood 06/16/2021 9:02 AM SCALE MECHANIC 06/16/2021 9:14 AM SCALE MECHANIC us Cassie Postlorena FISH SMOKER LAB BLOOD ORDERABLES Fin al Result Performing Organization Address [facility] Co de Phone Number [facility] [place] [employer] [place] [address] * Magnesium (06/16/2021 9:02 AM SCALE MECHANIC) Pathologist [facility] Magnesium 2.1 1.4 - 2.5 mg/dL [facility] Blood 06/16/2021 9:02 AM SCALE MECHANIC 06/16/2021 9:14 AM SCALE MECHANIC Cassie Posthamidajuliana FISH SMOKER LAB BLOOD ORDERABLES Fin al Result Performing Organization Address [facility] Co de Phone Number [facility] [place] [address] * Phosphorus (06/16/2021 9:02 AM SCALE MECHANIC) [facility] Phosphorus, pl 3.4 2.3 - 4.5 mg/dL [facility] Blood 06/16/2021 9:02 AM SCALE MECHANIC 06/16/2021 9:14 AM SCALE MECHANIC Cassie Trent FISH SMOKER LAB BLOOD ORDERABLES Fin al Result Performing Organization Address [facility] [place] [address] * (ABNORMAL) Basic metabolic panel (06/16/2021 9:02 AM SCALE MECHANIC) Sodium 147(H) 135 - 145 mmol/L [facility] Potassium, pl 4.1 3.3 - 4.9 mmol/L [facility] Chloride 111(H) 97 - 110 mmol/L [facility] CO2 32 22 - 32 mmol/L [facility] Anion gap 4 2 - 15 mmol/L [facility] BUN 17 8 - 25 mg/dL [facility] Creatinine 0.87 0.80 - 1.30 mg/dL [facility] Glucose 160 70 - 199 mg/dL [facility] Comment: Interpretive Data Fasting glucose >/= [...] 2017. Calcium 9.0 8.5 - 10.3 mg/dL [facility] Blood 06/16/2021 9:02 AM SCALE MECHANIC 06/16/2021 9:14 AM SCALE MECHANIC Cassie Trent FISH SMOKER LAB BLOOD ORDERABLES Fin al Result Performing Organization Address [facility] Co de Phone Number [facility] Department [place] [address] * Potassium, whole blood (06/15/2021 10:34 PM SCALE MECHANIC) Pathologist [facility] Potassium, bld 4.2 3.3 - 4.9 mmol/L [facility] Blood 06/15/2021 10:3 4 PM SCALE MECHANIC 06/15/2021 10:46 PM SCALE MECHANIC Digna Carter FISH SMOKER LAB BLOOD ORDERABLES Final Resul t Performing Organization Address [facility] Co de Phone Number [facility] Department [place] [address] * (ABNORMAL) CBC without differential (06/15/2021 10:34 PM SCALE MECHANIC) Pathologist [facility] WBC 7.6 3.8 - 9.9 K/cumm [facility] Hgb 12.1(L) 13.0 - 17.5 g/dL [facility] Hct 34.0(L) 38.9 - 50.3 % [facility] Plt 126(L) 150 - 400 K/cumm [facility] MPV 11.1 9.1 - 12.3 fL [facility] RBC 3.39(L) 4.30 - 5.80 M/cumm [facility] MCV 100.3(H) 81.3 - 96.4 fL [facility] MCH 35.7(H) 27.1 - 33.3 pg [facility] MCHC 35.6 32.3 - 35.7 g/dL [facility] RDW CV 12.9 11.1 - 14.9 % [facility] RDW SD 48.0 35.7 - 48.1 fL [facility] NRBC abs 0.00 0.00 - 0.01 K/cumm [facility] Blood 06/15/2021 10:3 4 PM SCALE MECHANIC 06/15/2021 10:50 PM SCALE MECHANIC Cassie Trent FISH SMOKER LAB BLOOD ORDERABLES Fin al Result Performing Organization Address City/State/[facility] Co de Phone Number [facility] [place] [address] * eGFR (06/15/2021 8:57 PM SCALE MECHANIC) eGFR >90 90 - 130 mL/min/1. 73 m2 [facility] Comment: Interpretive Data Reference Interval Normal [...] last reviewed 2021. Blood 06/15/2021 8:57 PM SCALE MECHANIC 06/15/2021 9:14 PM SCALE MECHANIC us Cassie Trent FISH SMOKER LAB BLOOD ORDERABLES Fin al Result [facility] Department [place] [address] * (ABNORMAL) Basic metabolic panel (06/15/2021 8:57 PM SCALE MECHANIC) Pathologist [facility] Sodium 145 135 - 145 mmol/L [facility] Potassium, pl 5.3(H) 3.3 - 4.9 mmol/L [facility] Comment:Hemolyzed; Potassium value may be falsely elevated by as much as 1.1-1.6 mmol/L. Suggest redraw and reanalysis. Chloride 111(H) 97 - 110 mmol/L [facility] CO2 28 22 - 32 mmol/L [facility] Anion gap 6 2 - 15 mmol/L [facility] BUN 17 8 - 25 mg/dL [facility] Creatinine 0.88 0.80 - 1.30 mg/dL [facility] Glucose 174 70 - 199 mg/dL [facility] Comment: Interpretive Data Fasting glucose >/= [...] 2017. Calcium 8.9 8.5 - 10.3 mg/dL [facility] Blood 06/15/2021 8:57 PM SCALE MECHANIC 06/15/2021 9:14 PM SCALE MECHANIC Cassie Posthamidaal FISH SMOKER LAB BLOOD ORDERABLES Fin al Result Performing Organization Address City/[facility] Co de Phone Number [facility] [place] [address] * Magnesium (06/15/2021 8:57 PM SCALE MECHANIC) Magnesium 2.1 1.4 - 2.5 mg/dL [facility] Blood 06/15/2021 8:57 PM SCALE MECHANIC 06/15/2021 9:14 PM SCALE MECHANIC Cassie Meléndez Leeal FISH SMOKER LAB BLOOD ORDERABLES Fin al Result Performing Organization Address [facility] de Phone Number [facility] [place] [employer] [place] [address] * Phosphorus (06/15/2021 8:57 PM SCALE MECHANIC) Phosphorus, pl 3.7 2.3 - 4.5 mg/dL [facility] Blood 06/15/2021 8:57 PM SCALE MECHANIC 06/15/2021 9:14 PM SCALE MECHANIC Cassie Howardal FISH SMOKER LAB BLOOD ORDERABLES Fin al Result Performing Organization Address [facility] [place] [address] * XR Chest 1 View (06/15/2021 8:08 PM SCALE MECHANIC) Anatomical Region Laterality Modality Body, Chest N/A Computed Radiogr aphy 06/16/2021 8:49 AM SCALE MECHANIC Impressions 06/16/2021 9:26 AM SCALE MECHANIC The current study is compared with the [...] Jennifer Barajas M.D. Narrative 06/16/2021 9:26 AM SCALE MECHANIC EXAMINATION: 1 view chest radiograph Procedure Note [...] Result * (ABNORMAL) eGFR (06/15/2021 8:00 AM SCALE MECHANIC) [facility] eGFR 84(L) 90 - 130 mL/min/1. 73 m2 [facility] Comment: Interpretive Data Reference Interval Normal [...] last reviewed 2021. Blood 06/15/2021 8:00 AM SCALE MECHANIC 06/15/2021 8:11 AM SCALE MECHANIC Cassie Trent LAB BLOOD ORDERABLES Fin al Result Performing Organization Address City/[facility] Co de Phone Number [facility] [place] [place] [address] * Magnesium (06/15/2021 8:00 AM SCALE MECHANIC) Magnesium 1.9 1.4 - 2.5 mg/dL [facility] Blood 06/15/2021 8:00 AM SCALE MECHANIC 06/15/2021 8:11 AM SCALE MECHANIC [facility] Fin al Result Performing Organization Address City/[facility] Co de Phone Number [facility] [place] [place] [address] * Phosphorus (06/15/2021 8:00 AM SCALE MECHANIC) Phosphorus, pl 3.1 2.3 - 4.5 mg/dL [facility] Blood 06/15/2021 8:00 AM SCALE MECHANIC 06/15/2021 8:11 AM SCALE MECHANIC Cassie Trent FISH SMOKER LAB BLOOD ORDERABLES Fin al Result Performing Organization Address City/[facility]/ZIP Co de Phone Number [facility] Department [place] [address] * (ABNORMAL) Basic metabolic panel (06/15/2021 8:00 AM SCALE MECHANIC) [facility] Sodium 147(H) 135 - 145 mmol/L [facility] Potassium, pl 3.9 3.3 - 4.9 mmol/L [facility] Chloride 112(H) 97 - 110 mmol/L [facility] CO2 30 22 - 32 mmol/L [facility] Anion gap 5 2 - 15 mmol/L [facility] BUN 14 8 - 25 mg/dL [facility] Creatinine 0.97 0.80 - 1.30 mg/dL [facility] Glucose 158 70 - 199 mg/dL [facility] Comment: Interpretive Data Fasting glucose >/= [...] 2017. Calcium 8.5 8.5 - 10.3 mg/dL [facility] Blood 06/15/2021 8:00 AM SCALE MECHANIC 06/15/2021 8:11 AM SCALE MECHANIC Cassie Trent FISH SMOKER LAB BLOOD ORDERABLES Fin al Result Performing Organization Address City/[facility]/ZIP Co de Phone Number [facility] Department [place] [address] * EEG (06/15/2021 7:40 AM SCALE MECHANIC) Anatomical Region Laterality Modality EEG Narrative 06/15/2021 2:09 PM SCALE MECHANIC Routine EEG Report Patient Name: Jania Redman [facility] Medical Record Number (MRN): [id number] [facility] Record: [id number] Date of (): 1950 EEG Date: 06/15/2021 [...] 32 channel EEG recording acquired on a [employer] EEG-1200 acquisition system. Scalp electrodes were placed [...] intent. Signing Attending: Eitan Mendoza MD PhD us Digna Carter NP NEUROLOGY ORDERABLES Final Resul t * (ABNORMAL) Blood gas, arterial (06/15/2021 4:22 AM SCALE MECHANIC) pH, Art 7.45 7.35 - 7.45 [facility] PCO2, Arterial 37 35 - 45 mmHg [facility] PO2, Arterial 140(H) 83 - 108 mmHg [facility] HCO3 Art (Calculated) 26 20 - 30 mmol/L [facility] BE, art 2 mmol/L [facility] Comment: Interpretive Data No Reference Range Established Current Interpretive Data was last revised on 2017 O2 Sat Art (Measured) 100(H) 90 - 95 % [facility] Blood 06/15/2021 4:22 AM SCALE MECHANIC 06/15/2021 4:29 AM SCALE MECHANIC us Digna Carter FISH SMOKER LAB BLOOD ORDERABLES Final Resul t [facility] Department [place] [address] * INTUBATION (06/15/2021 3:57 AM SCALE MECHANIC) Narrative Elver Rodriguez MD PhD - 06/15/2021 3:57 AM SCALE MECHANIC Shelia Posadas MD ? 06/15/2021 ??4:02 AM Intubation Date/Time: 06/15/2021 3:57 AM Performed by: Shelia Posadas MD Authorized by: Shelia Posadas MD [place] Protocol: RN Notified of Procedure: yes ?? 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 Evolving small volume intraventricular hemorrhage. The known subarachnoid hemorrhage is not well appreciated, and may be due to portable technique Dictated by: Ian Cohen M.D. The radiology attending physician has personally reviewed this study, and had reviewed and/or edited this written report and agrees with it. Electronically signed by: Kerwin Doss M.D. Narrative 06/15/2021 7:23 AM SCALE MECHANIC EXAMINATION: PORTABLE CT head without contrast HISTORY: [...] by: Kerwin Doss M.D. Seth Kiser MD IM CT PROCEDURES Final Res ult * XR Chest 1 View (06/15/2021 3:08 AM SCALE MECHANIC) Anatomical Region Laterality Modality Body, Chest N/A Computed Radiogr aphy 06/15/2021 8:41 AM SCALE MECHANIC Impressions 06/15/2021 10:17 AM SCALE MECHANIC First exam 06/15/2021 1:31 AM: 06/13/2021 comparison. [...] Tommy Bearden M.D. Narrative 06/15/2021 10:17 AM SCALE MECHANIC Examination: 2 portable chests Chest one view [...] XR Chest 1 View (06/15/2021 1:43 AM SCALE MECHANIC) Anatomical Region Laterality Modality Body, Chest N/A Computed Radiogr aphy 06/15/2021 8:41 AM SCALE MECHANIC Impressions 06/15/2021 10:17 AM SCALE MECHANIC First exam 06/15/2021 1:31 AM: 06/13/2021 comparison. [...] Tommy Bearden M.D. Narrative 06/15/2021 10:17 AM SCALE MECHANIC Examination: 2 portable chests Chest one view [...] Electronically signed by: Tommy Bearden M.D. us Digna Carter NP IMG XR PROCEDURES Final Result * (ABNORMAL) Blood gas, arterial (06/15/2021 1:12 AM SCALE MECHANIC) pH, Art 7.36 7.35 - 7.45 [facility] PCO2, Arterial 46(H) 35 - 45 mmHg [facility] PO2, Arterial 167(H) 83 - 108 mmHg [facility] HCO3 Art (Calculated) 27 20 - 30 mmol/L [facility] BE, art 0 mmol/L [facility] Comment: Interpretive Data No Reference Range Established Current Interpretive Data was last revised on 2017 O2 Sat Art (Measured) 99(H) 90 - 95 % [facility] Blood 06/15/2021 1:12 AM SCALE MECHANIC 06/15/2021 1:18 AM SCALE MECHANIC us Digna Carter NP LAB BLOOD ORDERABLES Final Resul t [facility] [place] [address] * eGFR (06/14/2021 9:38 PM SCALE MECHANIC) eGFR >90 90 - 130 mL/min/1. 73 [...] last reviewed 2021. Blood 06/14/2021 9:38 PM SCALE MECHANIC 06/14/2021 10:05 PM SCALE MECHANIC us Cassie Trent FISH SMOKER LAB BLOOD ORDERABLES Fin al Result [facility] Department [place] [address] * (ABNORMAL) CBC without differential (06/14/2021 9:38 PM SCALE MECHANIC) Pathologist [facility] WBC 7.9 3.8 - 9.9 K/cumm [facility] Hgb 12.6(L) 13.0 - 17.5 g/dL [facility] Hct 36.0(L) 38.9 - 50.3 % [facility] Plt 133(L) 150 - 400 K/cumm [facility] MPV 11.3 9.1 - 12.3 fL [facility] RBC 3.60(L) 4.30 - 5.80 M/cumm [facility] MCV 100.0(H) 81.3 - 96.4 fL [facility] MCH 35.0(H) 27.1 - 33.3 pg [facility] MCHC 35.0 32.3 - 35.7 g/dL [facility] RDW CV 12.6 11.1 - 14.9 % [facility] RDW SD 46.3 35.7 - 48.1 fL [facility] NRBC abs 0.00 0.00 - 0.01 K/cumm [facility] Blood 06/14/2021 9:38 PM SCALE MECHANIC 06/14/2021 10:05 PM SCALE MECHANIC Cassie Trent FISH SMOKER LAB BLOOD ORDERABLES Fin al Result [facility] Department [place] [address] * (ABNORMAL) Basic metabolic panel (06/14/2021 9:38 PM SCALE MECHANIC) Sodium 145 135 - 145 mmol/L [facility] Potassium, pl 4.0 3.3 - 4.9 mmol/L [facility] Chloride 111(H) 97 - 110 mmol/L [facility] CO2 28 22 - 32 mmol/L [facility] Anion gap 6 2 - 15 mmol/L [facility] BUN 10 8 - 25 mg/dL [facility] Creatinine 0.79(L) 0.80 - 1.30 mg/dL [facility] Glucose 192 70 - 199 mg/dL [facility] Comment: Interpretive Data Fasting glucose >/= [...] 2017. Calcium 8.6 8.5 - 10.3 mg/dL [facility] Blood 06/14/2021 9:38 PM SCALE MECHANIC 06/14/2021 10:05 PM SCALE MECHANIC Cassie Trent FISH SMOKER LAB BLOOD ORDERABLES Fin al Result Performing Organization Address City/[facility] Co de Phone Number [facility] [place] [employer] [place] [address] * Magnesium (06/14/2021 9:38 PM SCALE MECHANIC) Magnesium 2.0 1.4 - 2.5 mg/dL [facility] Blood 06/14/2021 9:38 PM SCALE MECHANIC 06/14/2021 10:05 PM SCALE MECHANIC [facility] BLOOD ORDERABLES Fin al Result Performing Organization Address [facility] Co de Phone Number [facility] [place] [place] [address] * Phosphorus (06/14/2021 9:38 PM SCALE MECHANIC) Phosphorus, pl 2.4 2.3 - 4.5 mg/dL [facility] Blood 06/14/2021 9:38 PM SCALE MECHANIC 06/14/2021 10:05 PM SCALE MECHANIC [facility]MO[facility] LAB BLOOD ORDERABLES Fin al Result Performing Organization Address City/[facility] Co de Phone Number [facility] Department [place] [address] * US Vein Duplex Lower Extremity Bilateral Complete (06/14/2021 5:35 PM SCALE MECHANIC) Anatomical Region Laterality Modality Vascular Bilateral Ultrasound 06/14/2021 5:14 PM SCALE MECHANIC Narrative 06/14/2021 7:12 PM SCALE MECHANIC [facility] - Department of Vascular Surgery, Vascular Laboratory [address] [place] [id number] Lower Extremity Venous Ultrasound Report Patient Name: JANIA REDMAN : 1950 (71y ) Study Date: 06/14/2021 5:14:06 PM Gender: M Tech: TRICIA Location: [id number] Ref.Provider: CASSIE TRENT Quality: Adequate Order Provider: [...] Personal history of venous thrombosis. Findings: Performing Search Lead: Corine Lala RVT. Bilateral: Venous Doppler signals [...] performed. Electronically Signed By: Saqib Forbes MD [facility] [phone] 2021-06-14 19:11:59 SCALE MECHANIC CC: CC: Procedure Note Saqib Forbes MD - 06/14/2021 [facility] - Department of Vascular Surgery,Vascular Laboratory [address] [place] [id number] Lower Extremity Venous Ultrasound Report Patient Name: JANIA REDMANPatient ID: [id number] : 1950 (71y )Study Date: 06/14/2021 5:14:06 PM Gender: MAccession #: [id number] Tech: KCLocation: [id number] Ref.Provider: CASSIE TRENTQuality: Adequate Order Provider: Ester TRENT #: [id number] Procedures: Vascular Report: Venous Duplex imaging was performed bilaterally in the lower extremities.The common femoral, femoral, popliteal, posterior tibial, peroneal veins wereevaluated for patency, spontaneity and phasicity with Doppler, compression and augmentationmaneuvers. Great saphenous vein proximal at the junction was evaluated with compressionmaneuvers. Indications: Personal history of venous thrombosis. Findings: Performing Search Lead: Corine Lala RVT. Bilateral: Venous Doppler signals [...] performed. Electronically Signed By: Saqib Forbes MD [facility] [phone] 2021-06-14 19:11:59 SCALE MECHANIC CC: CC: us Cassie Trent FISH SMOKER IMG US PROCEDURES Final Result * eGFR (06/14/2021 8:56 AM SCALE MECHANIC) eGFR >90 90 - 130 mL/min/1. 73 m2 [facility] Comment: Interpretive Data Reference Interval Normal ?>/= [...] last reviewed 2021. Blood 06/14/2021 8:56 AM SCALE MECHANIC 06/14/2021 9:15 AM SCALE MECHANIC us Cassie Trent NP LAB BLOOD ORDERABLES Fin al Result [facility] [place] [address] * Blood culture Blood Arm, right (06/14/2021 8:56 AM SCALE MECHANIC) Report Final Report: No growth [facility] Blood (Arm, right) 06/14/2021 8:56 AM SCALE MECHANIC 06/14/2021 9:14 AM SCALE MECHANIC Narrative BHAVINBRYAN FALCON - 06/18/2021 12:01 PM CDT 1. [...] organism identification may be performed using the [employer] Gram-Positive Blood Culture Assay. This assay detects microbial DNA in positive blood culture broth via hybridization of target DNA to capture oligonucleotides on a microarray. This assay has been cleared by the [place] Food and Drug Administration and its performance characteristics have been verified by the [facility]. 5. ?For questions about this culture, contact the Microbiology Laboratory at [phone]. Interpretive data was last revised on 2019. Cassie Trent NP LAB MICROBIOLOGY - [facility] ORDERABLES Final Result [facility] [place] [address] * Blood culture Blood Arm, left (06/14/2021 8:56 AM SCALE MECHANIC) Report Final Report: No growth [facility] Blood (Arm, left) 06/14/2021 8:56 AM SCALE MECHANIC 06/14/2021 9:14 AM SCALE MECHANIC Narrative [facility] - 06/18/2021 12:01 PM [...] organism identification may be performed using the [employer] Gram-Positive Blood Culture Assay. This assay detects microbial DNA in positive blood culture broth via hybridization of target DNA to capture oligonucleotides on a microarray. This assay has been cleared by the [place] Food and Drug Administration and its performance characteristics have been verified by the [facility]. 5. ?For questions about this culture, contact the Microbiology Laboratory at [phone]. Interpretive data was last revised on 2019. Cassie Trent NP LAB MICROBIOLOGY - GENER AL ORDERABLES Final Result Performing Organization Address City/[facility] Co de Phone Number [facility] [place] [place] [address] * Magnesium (06/14/2021 8:56 AM SCALE MECHANIC) [facility] Magnesium 1.8 1.4 - 2.5 mg/dL [facility] Blood 06/14/2021 8:56 AM SCALE MECHANIC 06/14/2021 9:15 AM SCALE MECHANIC Cassie Trent FISH SMOKER LAB BLOOD ORDERABLES Fin al Result Performing Organization Address [facility] de Phone Number [facility] Department [place] [address] * Phosphorus (06/14/2021 8:56 AM SCALE MECHANIC) Phosphorus, pl 3.1 2.3 - 4.5 mg/dL [facility] Blood 06/14/2021 8:56 AM SCALE MECHANIC 06/14/2021 9:15 AM SCALE MECHANIC Cassie Trent NP LAB BLOOD ORDERABLES Fin al Result [facility] [place] [address] * (ABNORMAL) Basic metabolic panel (06/14/2021 8:56 AM SCALE MECHANIC) Pathologist [facility] Sodium 145 135 - 145 mmol/L [facility] Potassium, pl 3.9 3.3 - 4.9 mmol/L [facility] Chloride 113(H) 97 - 110 mmol/L [facility] CO2 29 22 - 32 mmol/L [facility] Anion gap 3 2 - 15 mmol/L [facility] BUN 9 8 - 25 mg/dL [facility] Creatinine 0.72(L) 0.80 - 1.30 mg/dL [facility] Glucose 159 70 - 199 mg/dL [facility] Comment: Interpretive Data Fasting glucose >/= [...] 2017. Calcium 8.7 8.5 - 10.3 mg/dL [facility] Blood 06/14/2021 8:56 AM SCALE MECHANIC 06/14/2021 9:15 AM SCALE MECHANIC Cassie Rika Arackal FISH SMOKER LAB BLOOD ORDERABLES Fin al Result [facility] [place] [address] * MRI Brain W WO Contrast (06/14/2021 2:42 AM SCALE MECHANIC) Anatomical Region Laterality Modality Head and Neck N/A Magnetic Resonan ce 06/14/2021 9:07 AM SCALE MECHANIC Impressions 06/14/2021 6:16 PM SCALE MECHANIC 1. Small amount of subarachnoid, intraventricular, and intraparenchymal hemorrhage as described above, grossly stable compared with prior exam. 2. No acute cerebral infarct or enhancing lesion. Dictated by: Eugene Patel M.D. The radiology attending physician has personally reviewed this study, and had reviewed and/or edited this written report and agrees with it. Electronically signed by: Alberto Cohen M.D. Narrative 06/14/2021 6:16 PM SCALE MECHANIC EXAMINATION: Magnetic resonance imaging (MRI) of the [...] by: Alberto Cohen M.D. Cassie Trent NP [facility] [place] MRI PROCEDURES Final Result * Phosphorus (06/14/2021 12:52 AM SCALE MECHANIC) Pathologist [facility] Phosphorus, pl 3.0 2.3 - 4.5 mg/dL [facility] Blood 06/14/2021 12:5 2 AM SCALE MECHANIC 06/14/2021 1:07 AM SCALE MECHANIC Cassie Trent FISH SMOKER LAB BLOOD ORDERABLES Fin al Result Performing Organization Address [facility] de Phone Number [facility] [place] [address] * Magnesium (06/14/2021 12:52 AM SCALE MECHANIC) Pathologist [facility] Magnesium 2.0 1.4 - 2.5 mg/dL [facility] Blood 06/14/2021 12:5 2 AM SCALE MECHANIC 06/14/2021 1:07 AM SCALE MECHANIC Cassie Meléndez Leeny FISH SMOKER LAB BLOOD ORDERABLES Fin al Result Performing Organization Address [facility] de Phone Number [facility] [place] [address] * eGFR (06/14/2021 12:52 AM SCALE MECHANIC) eGFR >90 90 - 130 mL/min/1. 73 m2 [facility] Comment: Interpretive Data Reference Interval Normal [...] Inclusion of Race in Diagnosing Kidney Disease, PRAKASHSN 2020). The CKD-EPI equation should not be used for patients with unstable renal function and has not been validated in children and those over 70. Current interpretive data was last reviewed 2021. Blood 06/14/2021 12:5 2 AM SCALE MECHANIC 06/14/2021 1:07 AM SCALE MECHANIC us Candace Cummings FISH SMOKER LAB BLOOD ORDERABLES Final R esult [facility] [place] [address] * (ABNORMAL) Basic metabolic panel (06/14/2021 12:52 AM SCALE MECHANIC) Sodium 142 135 - 145 mmol/L [facility] Potassium, pl 4.3 3.3 - 4.9 mmol/L [facility] Comment:Hemolyzed; Potassium value may be falsely elevated by as much as 0.6-1.0 mmol/L. Suggest redraw and reanalysis. Chloride 113(H) 97 - 110 mmol/L [facility] CO2 24 22 - 32 mmol/L [facility] Anion gap 5 2 - 15 mmol/L [facility] BUN 9 8 - 25 mg/dL [facility] Creatinine 0.75(L) 0.80 - 1.30 mg/dL [facility] Glucose 122 70 - 199 mg/dL [facility] Comment: Interpretive Data Fasting glucose >/= [...] 2017. Calcium 8.4(L) 8.5 - 10.3 mg/dL [facility] Comment:Reviewed Blood 06/14/2021 12:5 2 AM SCALE MECHANIC 06/14/2021 1:07 AM SCALE MECHANIC Candace Cummings FISH SMOKER LAB BLOOD ORDERABLES Final R esult Performing Organization Address [facility] de Phone Number [facility] [place] [address] * ECG 12 lead (06/13/2021 11:38 PM SCALE MECHANIC) Pathologist [facility] Ventricular Rate EKG/Min 78 BPM [facility] Atrial Rate 110 BPM [facility] QRS-Interval (MSEC) 76 ms [facility] QT-Interval (MSEC) 424 ms [facility] QTc 483 ms [facility] R [place] 14 degrees [facility] T [place] -38 degrees [facility] Diagnosis Atrial fibrillation Nonspecific ST and T wave abnormality Prolonged QT Abnormal ECG When compared with ECG of 12-JUN-2021 12:13, Vent. rate has decreased BY ??70 BPM Nonspecific T wave abnormality, worse in Anterolateral leads Confirmed by VENKAT KANG M.D ([id number]) on 06/14/2021 2:54:24 PM [facility] 06/13/2021 11:3 8 PM SCALE MECHANIC 06/14/2021 2:54 PM SCALE MECHANIC Cassie Trent FISH SMOKER ECG ORDERABLES Final Re sult Performing Organization Address [facility] de Phone Number [facility] * eGFR (06/13/2021 10:52 PM SCALE MECHANIC) Pathologist [facility] eGFR >90 90 - 130 mL/min/1. 73 m2 [facility] Comment: Interpretive Data Reference Interval Normal [...] reviewed 2021. Blood 06/13/2021 10:5 2 PM SCALE MECHANIC 06/13/2021 11:07 PM SCALE MECHANIC Candace Cummings NP LAB BLOOD ORDERABLES Final R esult Performing Organization Address City/[facility]/ZIP Co de Phone Number DAKSHA [facility] [place] [employer] [address] * Critical Result Callback Chemistry (06/13/2021 10:52 PM SCALE MECHANIC) Date Notified [id number] DAKSHA [facility] Time Notified 43 DAKSHA FALCON TestName Potassium, Calcium DAKSHA FALCON Called/Read Back Melani CROOKS [facility] Credentials RN DAKSHA [facility] Called By MAXINE FALCON Blood 06/13/2021 10:5 2 PM SCALE MECHANIC 06/13/2021 11:07 PM SCALE MECHANIC Candace Cummings NP LAB BLOOD ORDERABLES Final R esult DAKSHA [facility] [place] [address] * Basic metabolic panel (06/13/2021 10:52 PM SCALE MECHANIC) Sodium See Comment 135 - 145 mmol/L [facility] Comment:Credited: Sample inv estigated and found to be an improper collection (e.g., IV fluid contamination, improper tube type). Deleted at the Request of Melani Toney RN on 06/14/2021 00:44:19 SCALE MECHANIC by MAXINE . Potassium, pl See Comment 3.3 - 4.9 mmol/L [facility] Comment: Hemolyzed; Potassium value may be falsely elevated by as much as 0.3-0.5 mmol/L. ??Suggest redraw and reanalysis. Repeated and Verified Credited: Sample investigated and found to be an improper collection (e.g., IV fluid contamination, improper tube type). Deleted at the Request of Melani Toney RN on 06/14/2021 00:44:19 SCALE MECHANIC by MAXINE . Chloride See Comment 97 - 110 mmol/L [facility] Comment:Credited: Sample inv estigated and found to be an improper collection (e.g., IV fluid contamination, improper tube type). Deleted at the Request of Melani Toney RN on 06/14/2021 00:44:19 SCALE MECHANIC by MAXINE . CO2 See Comment 22 - 32 mmol/L [facility] Comment:Credited: Sample inv estigated and found to be an improper collection (e.g., IV fluid contamination, improper tube type). Deleted at the Request of Melani Toney RN on 06/14/2021 00:44:19 SCALE MECHANIC by MAXINE . Anion gap See Comment 2 - 15 mmol/L [facility] Comment:Credited: Sample inv estigated and found to be an improper collection (e.g., IV fluid contamination, improper tube type). Deleted at the Request of Melani Toney RN on 06/14/2021 00:44:19 SCALE MECHANIC by MAXINE . BUN See Comment 8 - 25 mg/dL [facility] Comment:Credited: Sample inv estigated and found to be an improper collection (e.g., IV fluid contamination, improper tube type). Deleted at the Request of Melani Toney RN on 06/14/2021 00:44:19 SCALE MECHANIC by MAXINE . Creatinine See Comment 0.80 - 1.30 mg/dL [facility] Comment:Credited: Sample inv estigated and found to be an improper collection (e.g., IV fluid contamination, improper tube type). Deleted at the Request of Melani Toney RN on 06/14/2021 00:44:19 SCALE MECHANIC by MAXINE . Glucose See Comment 70 - 199 mg/dL [facility] Comment: Credited: Sample investigated and found to be an improper collection (e.g., IV fluid contamination, improper tube type). Deleted at the Request of Melani Toney RN on 06/14/2021 00:44:19 SCALE MECHANIC by MAXINE . Interpretive Data Fasting glucose [...] See Comment 8.5 - 10.3 mg/dL [facility] Comment: Repeated and Verified Credited: Sample investigated and found to be an improper collection (e.g., IV fluid contamination, improper tube type). Deleted at the Request of Melani Toney RN on 06/14/2021 00:44:19 SCALE MECHANIC by MAXINE . Blood 06/13/2021 10:5 2 PM SCALE MECHANIC 06/13/2021 11:07 PM SCALE MECHANIC us Candace Cummings NP LAB BLOOD ORDERABLES Edited Result - Final [facility] [place] [address] * (ABNORMAL) CBC without differential (06/13/2021 8:48 PM SCALE MECHANIC) WBC 6.4 3.8 - 9.9 K/cumm [facility] Hgb 12.2(L) 13.0 - 17.5 g/dL [facility] Hct 34.9(L) 38.9 - 50.3 % [facility] Plt 120(L) 150 - 400 K/cumm [facility] MPV 10.7 9.1 - 12.3 fL [facility] RBC 3.47(L) 4.30 - 5.80 M/cumm [facility] MCV 100.6(H) 81.3 - 96.4 fL [facility] MCH 35.2(H) 27.1 - 33.3 pg [facility] MCHC 35.0 32.3 - 35.7 g/dL [facility] RDW CV 12.8 11.1 - 14.9 % [facility] RDW SD 47.4 35.7 - 48.1 fL [facility] NRBC abs 0.00 0.00 - 0.01 K/cumm [facility] Blood 06/13/2021 8:48 PM SCALE MECHANIC 06/13/2021 9:11 PM SCALE MECHANIC Cassie Trent FISH SMOKER LAB BLOOD ORDERABLES Fin al Result [facility] [place] [address] * TRANSTHORACIC ECHO (TTE) COMPLETE W DOPPLER/CF W CONTRAST W BUBBLE (06/13/2021 4:49 PM SCALE MECHANIC) Anatomical Region Laterality Modality Ultrasound 06/13/2021 7:00 AM SCALE MECHANIC Narrative 06/13/2021 5:03 PM SCALE MECHANIC Patient name: Jania Redman Date of test: 06/13/2021 Type of test: TTE w/Doppler [facility] #: [id number] Date of : 1950 (M) Search Lead: Sandie Howard RDCS Referring Physician: MARK EARLY MD Contrast Agent: 2.3 ml. Optison Admin., (0.7 ml Wasted) and NS Bubble Study Contrast Administered by: Supervised/Interpreted by: Bryson De La Rosa MD Diagnosis: Location: [facility] Reason for test: syncope/cardiac w/up MV Structure: [...] 2=Hypo 3=Akinetic 4=Dyskin./Aneurysm 0=Not visualized) Parasternal Long [place]:MAS=1 BAS=1 MIL=1 LACY=1 Parasternal Short [place]:MAS=1 MIS=1 SD=1 MIL=1 MAL=1 MA=1 Apical 4 Chambers:=1 MIS=1 BIS=1 BAL=1 MAL=1 AL=1 AC=1 Apical 2 Chambers:AI=1 SD=1 BI=1 BA=1 MA=1 AA=1 AC=1 LV Global [...] MD By signing this report, the attending legislative advocate certifies that he or she has personally supervised and interpreted the echocardiogram and has reviewed and or edited and agrees with the written comments contained within the report. Procedure Note Bryson De La Rosa MD - 06/13/2021 Patient name: Jania Redman Date of test: 06/13/2021 Type of test: TTE w/Doppler [facility] #: [id number] Date of : 1950 (M) Search Lead: Sandie Howard [facility] Referring Physician: MARK EARLY MD Contrast Agent: 2.3 ml. Optison Admin., (0.7 ml Wasted) and NS Bubble Study Contrast Administered by: Supervised/Interpreted by: Bryson De La Rosa MD Diagnosis: Location: [facility] Reason for test: syncope/cardiac w/up MV [...] 2=Hypo 3=Akinetic 4=Dyskin./Aneurysm 0=Not visualized) Parasternal Long [place]:MAS=1 BAS=1 MIL=1 LACY=1 Parasternal Short [place]:MAS=1 MIS=1 SD=1 MIL=1 MAL=1 MA=1 Apical 4 Chambers:=1 MIS=1 BIS=1 BAL=1 MAL=1 AL=1 AC=1 Apical 2 Chambers:AI=1 SD=1 BI=1 BA=1 MA=1 AA=1 AC=1 LV Global [...] MD By signing this report, the attending legislative advocate certifies that he or she has personally supervised and interpreted the echocardiogram and has reviewed and or edited and agrees with the written comments contained within the report. Mark Early NP CV ECHO PROCEDURES Final Result * Potassium, whole blood (06/13/2021 2:26 PM SCALE MECHANIC) Pathologist [facility] Potassium, bld 4.2 3.3 - 4.9 mmol/L [facility] Blood 06/13/2021 2:26 PM SCALE MECHANIC 06/13/2021 2:36 PM SCALE MECHANIC Cassie Trent NP LAB BLOOD ORDERABLES Fin al Result [facility] [place] [address] * Continuous Video EEG (06/13/2021 1:58 PM SCALE MECHANIC) Anatomical Region Laterality Modality EEG Narrative 06/13/2021 5:50 PM SCALE MECHANIC Video-EEG Report Patient Name: Jania Redman [facility] Medical Record Number (MRN): [id number] [facility] Record: [id number] Date of (): 1950 EEG Date: 06/12/2021 [...] digital EEG were recorded continuously with a [employer] EEG acquisition system. This was a 32 [...] Stevie Kevin MD PhD us Katia Champion NP NEUROLOGY ORDERABLES Fi nal Result * eGFR (06/13/2021 12:57 PM SCALE MECHANIC) eGFR >90 90 - 130 mL/min/1. 73 m2 DAKSHA [facility] Comment: Interpretive Data Reference Interval Normal [...] reviewed 2021. Blood 06/13/2021 12:5 7 PM SCALE MECHANIC 06/13/2021 1:13 PM SCALE MECHANIC Cassie Trent NP LAB BLOOD ORDERABLES Fin al Result [facility] [place] [address] * Differential, auto (06/13/2021 12:57 PM SCALE MECHANIC) Neutrophil abs 3.6 1.7 - 6.5 K/cumm [facility] Imm gran abs 0.0 0.0 - 0.1 K/cumm [facility] Lymphocyte abs 1.1 0.8 - 3.3 K/cumm [facility] Monocyte abs 0.4 0.2 - 0.8 K/cumm [facility] Eosinophil abs 0.1 0.0 - 0.5 K/cumm [facility] Basophil abs 0.0 0.0 - 0.1 K/cumm [facility] Neutrophil pct 67.9 % [facility] Comment: Interpretive Data Percent cell count reference ranges are not reported, since discordance with absolute values may lead to misinterpretation of CBC data. Current Interpretive Data was last revised on 2017. Imm gran pct 0.4 % DAKSHA [facility] Comment: Interpretive Data Percent cell count reference ranges are not reported, since discordance with absolute values may lead to misinterpretation of CBC data. Current Interpretive Data was last revised on 2017. Lymphocyte pct 20.8 % DAKSHA [facility] Comment: Interpretive Data Percent cell count reference ranges are not reported, since discordance with absolute values may lead to misinterpretation of CBC data. Current Interpretive Data was last revised on 2017. Monocyte pct 8.1 % DAKSHA [facility] Comment: Interpretive Data Percent cell count reference ranges are not reported, since discordance with absolute values may lead to misinterpretation of CBC data. Current Interpretive Data was last revised on 2017. Eosinophil pct 2.4 % DAK[facility] Comment: Interpretive Data Percent cell count reference ranges are not reported, since discordance with absolute values may lead to misinterpretation of CBC data. Current Interpretive Data was last revised on 2017. Basophil pct 0.4 % D[facility] Comment: Interpretive Data Percent cell count reference ranges are not reported, since discordance with absolute values may lead to misinterpretation of CBC data. Current Interpretive Data was last revised on 2017. Blood 06/13/2021 12:5 7 PM SCALE MECHANIC 06/13/2021 1:13 PM SCALE MECHANIC Cassie Trent FISH SMOKER LAB BLOOD ORDERABLES Fin al Result [facility] [place] [address] * (ABNORMAL) CBC with auto differential (06/13/2021 12:57 PM SCALE MECHANIC) WBC 5.3 3.8 - 9.9 K/cumm [facility] Hgb 12.4(L) 13.0 - 17.5 g/dL [facility] Hct 34.8(L) 38.9 - 50.3 % [facility] Plt 100(L) 150 - 400 K/cumm [facility] MPV 11.3 9.1 - 12.3 fL [facility] RBC 3.44(L) 4.30 - 5.80 M/cumm [facility] MCV 101.2(H) 81.3 - 96.4 fL [facility] MCH 36.0(H) 27.1 - 33.3 pg [facility] MCHC 35.6 32.3 - 35.7 g/dL [facility] RDW CV 12.7 11.1 - 14.9 % [facility] RDW SD 47.4 35.7 - 48.1 fL [facility] NRBC abs 0.00 0.00 - 0.01 K/cumm [facility] Blood 06/13/2021 12:5 7 PM SCALE MECHANIC 06/13/2021 1:13 PM SCALE MECHANIC Cassie Trent FISH SMOKER LAB BLOOD ORDERABLES Fin al Result [facility] [place] [address] * (ABNORMAL) Basic metabolic panel (06/13/2021 12:57 PM SCALE MECHANIC) Sodium 143 135 - 145 mmol/L [facility] Potassium, pl 4.7 3.3 - 4.9 mmol/L [facility] Comment:Hemolyzed; Potassium value may be falsely elevated by as much as 0.6-1.0 mmol/L. Suggest redraw and reanalysis. Chloride 112(H) 97 - 110 mmol/L [facility] CO2 26 22 - 32 mmol/L [facility] Anion gap 5 2 - 15 mmol/L [facility] BUN 10 8 - 25 mg/dL [facility] Creatinine 0.71(L) 0.80 - 1.30 mg/dL [facility] Glucose 125 70 - 199 mg/dL [facility] Comment: Interpretive Data Fasting glucose >/= [...] 2017. Calcium 8.4(L) 8.5 - 10.3 mg/dL [facility] Blood 06/13/2021 12:5 7 PM SCALE MECHANIC 06/13/2021 1:13 PM SCALE MECHANIC Cassie Trent FISH SMOKER LAB BLOOD ORDERABLES Fin al Result Performing Organization Address City/[facility]/ZIP Co de Phone Number [facility] [place] [address] * Calcium, ionized (06/13/2021 12:57 PM SCALE MECHANIC) Calcium, Ionized 4.59 4.50 - 5.10 mg/dL [facility] Blood 06/13/2021 12:5 7 PM SCALE MECHANIC 06/13/2021 1:07 PM SCALE MECHANIC Cassie Trent LAB BLOOD ORDERABLES Fin al Result Performing Organization Address City/[facility] Co de Phone Number [facility] Department [place] [address] * XR Chest 1 View (06/13/2021 11:26 AM SCALE MECHANIC) Anatomical Region Laterality Modality Body, Chest N/A Computed Radiogr aphy 06/13/2021 11:4 8 AM SCALE MECHANIC Impressions 06/13/2021 11:56 AM SCALE MECHANIC Comparison is made to 06/12/2021. A gastric [...] Tommy Bearden M.D. Narrative 06/13/2021 11:56 AM SCALE MECHANIC EXAMINATION: 1 view chest radiograph Procedure Note [...] signed by: Tommy Bearden M.D. Cassie Trent FISH SMOKER IMG XR PROCEDURES Final Result * eGFR (06/13/2021 11:08 AM SCALE MECHANIC) eGFR >90 90 - 130 mL/min/1. 73 m2 D[facility] Comment: Interpretive Data Reference Interval Normal [...] reviewed 2021. Blood 06/13/2021 11:0 8 AM SCALE MECHANIC 06/13/2021 11:27 AM SCALE MECHANIC Cassie Trent FISH SMOKER LAB BLOOD ORDERABLES Fin al Result [facility] [place] [address] * (ABNORMAL) CBC without differential (06/13/2021 11:08 AM SCALE MECHANIC) WBC 4.9 3.8 - 9.9 K/cumm [facility] Hgb 10.0(L) 13.0 - 17.5 g/dL [facility] Comment:No apparent cause fo r delta. Discrepancy noted. Called and confirmed per Guillermina Ibarra RN at 1150 by sv Hct 29.2(L) 38.9 - 50.3 % [facility] Plt 111(L) 150 - 400 K/cumm [facility] MPV 11.0 9.1 - 12.3 fL [facility] RBC 2.83(L) 4.30 - 5.80 M/cumm [facility] MCV 103.2(H) 81.3 - 96.4 fL [facility] MCH 35.3(H) 27.1 - 33.3 pg [facility] MCHC 34.2 32.3 - 35.7 g/dL [facility] RDW CV 12.5 11.1 - 14.9 % [facility] RDW SD 47.0 35.7 - 48.1 fL [facility] NRBC abs 0.00 0.00 - 0.01 K/cumm [facility] Blood 06/13/2021 11:0 8 AM SCALE MECHANIC 06/13/2021 11:26 AM SCALE MECHANIC us Cassie Rika Trent FISH SMOKER LAB BLOOD ORDERABLES Fin al Result Performing Organization Address City/[facility]/ZIP Co de Phone Number [facility] Department [place] [address] * (ABNORMAL) Basic metabolic panel (06/13/2021 11:08 AM SCALE MECHANIC) Sodium 145 135 - 145 mmol/L [facility] Potassium, pl 3.4 3.3 - 4.9 mmol/L [facility] Comment:Hemolyzed; Potassium value may be falsely elevated by as much as 0.3-0.5 mmol/L. Suggest redraw and reanalysis. Chloride 116(H) 97 - 110 mmol/L [facility] CO2 23 22 - 32 mmol/L [facility] Anion gap 6 2 - 15 mmol/L [facility] BUN 8 8 - 25 mg/dL [facility] Creatinine 0.65(L) 0.80 - 1.30 mg/dL [facility] Glucose 134 70 - 199 mg/dL [facility] Comment: Interpretive Data Fasting glucose >/= [...] 2017. Calcium 6.6(L) 8.5 - 10.3 mg/dL [facility] Comment:Reviewed Blood 06/13/2021 11:0 8 AM SCALE MECHANIC 06/13/2021 11:27 AM SCALE MECHANIC Cassie Rika Trent LAB BLOOD ORDERABLES Fin al Result Performing Organization Address City/[facility]/ZIP Co de Phone Number [facility] [place] [address] * Ammonia (06/13/2021 11:08 AM SCALE MECHANIC) Ammonia <20 5 - 50 mcmol/L [facility] Blood 06/13/2021 11:0 8 AM SCALE MECHANIC 06/13/2021 11:52 AM SCALE MECHANIC us Cassie Trent FISH SMOKER LAB BLOOD ORDERABLES Aime renetta Result - Final [facility] [place] [address] * eGFR (06/12/2021 4:34 PM SCALE MECHANIC) eGFR >90 90 - 130 mL/min/1. 73 m2 [facility] Comment: Interpretive Data Reference Interval Normal [...] last reviewed 2021. Blood 06/12/2021 4:34 PM SCALE MECHANIC 06/12/2021 4:49 PM SCALE MECHANIC Cassie Trent NP LAB BLOOD ORDERABLES Fin al Result [facility] [place] [address] * Hepatitis panel, acute (06/12/2021 4:34 PM SCALE MECHANIC) Hep A IgM Nonreactive Nonreactive [facility] Comment: Interpretive Data: If Hep A IgM Ab is reported as Equivocal, a new sample should be drawn in two weeks for testing. Current interpretive data was last revised on 19. Hep B core IgM Nonreactive Nonreactive [facility] Comment: Interpretive Data If HepB Core IgM Ab is reported as Equivocal, a new sample should be drawn in two weeks for testing. Current interpretive data was last revised on 19. Hep C Ab Nonreactive Nonreactive [facility] Comment:Antibodies to HCV no t detected. Does NOT exclude the possibility of recent exposure to HCV. HepBsAg Nonreactive Nonreactive [facility] Blood 06/12/2021 4:34 PM SCALE MECHANIC 06/12/2021 4:44 PM SCALE MECHANIC Cassie Trent NP LAB MICROBIOLOGY - GENER AL ORDERABLES Edited Result - Final [facility] [place] [address] * HIV 1/2 Antibody plus p24 Antigen Blood (06/12/2021 4:34 PM SCALE MECHANIC) HIV 1/2 ab + p24 ag Nonreactive Nonreactive [facility] Comment: Nonreactive for HIV-1 antigen and HIV-1/HIV-2 antibodies. No laboratory evidence of HIV infection. If acute HIV infection is suspected, consider testing for HIV-1 RNA. Blood 06/12/2021 4:34 PM SCALE MECHANIC 06/12/2021 4:44 PM SCALE MECHANIC Cassie Rika Trent FISH SMOKER LAB MICROBIOLOGY - GENER AL ORDERABLES Final Result Performing Organization Address [facility] Co de Phone Number [facility] [place] [employer] [place] [address] * RPR (06/12/2021 4:34 PM SCALE MECHANIC) RPR Nonreactive Nonreactive [facility] Blood 06/12/2021 4:34 PM SCALE MECHANIC 06/12/2021 4:44 PM SCALE MECHANIC [facility]CRO[facility] - GENER AL ORDERABLES Final Result Performing Organization Address [facility] [place] [address] * (ABNORMAL) Vitamin B1 (06/12/2021 4:34 PM SCALE MECHANIC) Thiamine (Vit B1) 340(H) 70 - 180 nmol/L [facility] Comment: ADDITIONAL INFORMATION This test was developed and its performance characteristics determined by [facility] in a manner consistent with CLIA requirements. This test has not been cleared or approved by the U.S. Food and Drug Administration. Test Performed by: [address] [address] [employer]: Naman Moore M.D. Ph.D.; CLIA# [id number] Blood 06/12/2021 4:34 PM SCALE MECHANIC 06/12/2021 5:17 PM SCALE MECHANIC Cassie Rika Trent LAB BLOOD ORDERABLES Fin al Result Performing Organization Address [facility] [place] [address] * Vitamin B12 (06/12/2021 4:34 PM SCALE MECHANIC) Vitamin B12 742 230 - 1,250 pg/mL [facility] Blood 06/12/2021 4:34 PM SCALE MECHANIC 06/12/2021 4:44 PM SCALE MECHANIC [facility] LAB BLOOD ORDERABLES Fin al Result Performing Organization Address [facility] [place] [address] * Folate (06/12/2021 4:34 PM SCALE MECHANIC) [facility] Folic acid >20.0 >=5.0 ng/mL [facility] Blood 06/12/2021 4:34 PM SCALE MECHANIC 06/12/2021 4:44 PM SCALE MECHANIC [facility] LAB BLOOD ORDERABLES Fin al Result Performing Organization Address [facility] [facility] de Phone Number [facility] [place] [address] * Copper, serum (06/12/2021 4:34 PM SCALE MECHANIC) Pathologist [facility] Copper 0.99 0.75 - 1.45 mcg/mL [facility] Comment: ADDITIONAL INFORMATION This test was developed and its performance characteristics determined by [facility] in a manner consistent with CLIA requirements. This test has not been cleared or approved by the U.S. Food and Drug Administration. Test Performed by: [facility] [address] [place] [address] Warehouse Freight Handler: Naman Moore M.D. Ph.D.; CLIA# [id number] Blood 06/12/2021 4:34 PM SCALE MECHANIC 06/12/2021 5:27 PM SCALE MECHANIC Cassie Howardny FISH SMOKER LAB BLOOD ORDERABLES Fin al Result [facility] [place] [address] * Magnesium (06/12/2021 4:34 PM SCALE MECHANIC) Pathologist [facility] Magnesium 2.5 1.4 - 2.5 mg/dL [facility] Blood 06/12/2021 4:34 PM SCALE MECHANIC 06/12/2021 4:44 PM SCALE MECHANIC [facility] BLOOD ORDERABLES Fin al Result Performing Organization Address [facility] de Phone Number [facility] [place] [address] * (ABNORMAL) CBC without differential (06/12/2021 4:34 PM SCALE MECHANIC) [facility] WBC 8.3 3.8 - 9.9 K/cumm [facility] Hgb 14.2 13.0 - 17.5 g/dL [facility] Hct 41.4 38.9 - 50.3 % [facility] Plt 141(L) 150 - 400 K/cumm [facility] MPV 10.9 9.1 - 12.3 fL [facility] RBC 4.05(L) 4.30 - 5.80 M/cumm [facility] MCV 102.2(H) 81.3 - 96.4 fL [facility] MCH 35.1(H) 27.1 - 33.3 pg [facility] MCHC 34.3 32.3 - 35.7 g/dL [facility] RDW CV 12.6 11.1 - 14.9 % [facility] RDW SD 47.6 35.7 - 48.1 fL [facility] NRBC abs 0.00 0.00 - 0.01 K/cumm [facility] Blood 06/12/2021 4:34 PM SCALE MECHANIC 06/12/2021 4:44 PM SCALE MECHANIC Cassie Trent [employer] LAB BLOOD ORDERABLES Fin al Result Performing Organization Address City/[facility]/ZIP Co de Phone Number [facility] Department [place] [address] * (ABNORMAL) Basic metabolic panel (06/12/2021 4:34 PM SCALE MECHANIC) Sodium 147(H) 135 - 145 mmol/L [facility] Potassium, pl 4.0 3.3 - 4.9 mmol/L [facility] Chloride 108 97 - 110 mmol/L [facility] CO2 27 22 - 32 mmol/L [facility] Anion gap 12 2 - 15 mmol/L [facility] BUN 10 8 - 25 mg/dL [facility] Creatinine 0.81 0.80 - 1.30 mg/dL [facility] Glucose 106 70 - 199 mg/dL [facility] Comment: Interpretive Data Fasting glucose >/= [...] 2017. Calcium 8.8 8.5 - 10.3 mg/dL [facility] Blood 06/12/2021 4:34 PM SCALE MECHANIC 06/12/2021 4:44 PM SCALE MECHANIC Cassie Trent [employer] LAB BLOOD ORDERABLES Fin al Result Performing Organization Address [facility] Co de Phone Number [facility] Department [place] [address] * EEG (06/12/2021 3:25 PM SCALE MECHANIC) Anatomical Region Laterality Modality EEG Narrative 06/12/2021 5:35 PM SCALE MECHANIC Extended EEG Report Patient Name: Jania Redman [facility] Medical Record Number (MRN): [id number] [facility] Record: [id number] Date of (): 1950 EEG Date: 06/12/2021 [...] 32 channel EEG recording acquired on a [employer] EEG-1200 acquisition system. Scalp electrodes were placed [...] intent. Signing Attending: Stevie Kevin MD PhD Seth Kiser MD NEUROLOGY ORDERABLES Final Result * (ABNORMAL) Urinalysis, microscopic only (06/12/2021 2:36 PM SCALE MECHANIC) WBC, ur 0-5 0 - 5 /HPF [facility] RBC, ur 0-2 0 - 2 /HPF [facility] Epithelial cells, squamous, ur 1-5 0 - 5 /HPF [facility] Mucous, ur Present(A) [facility] Hyaline casts, ur 21-50(A) 0 - 10 /LPF [facility] Culture Reflex Comment Reflex conditions for urine culture (WBC >10) not met. [facility] Urine 06/12/2021 2:36 PM SCALE MECHANIC 06/12/2021 2:56 PM SCALE MECHANIC Cassie Trent [employer] LAB URINE ORDERABLES Fin al Result [facility] Department [place] [address] * (ABNORMAL) Urinalysis reflex to microscopic and culture Urine (06/12/2021 2:36 PM SCALE MECHANIC) Color, ur Yellow Yellow [facility] Clarity, ur Clear Clear [facility] Specific gravity, ur 1.029 1.003 - 1.030 [facility] pH, urine 5.5 [facility] Protein, ur ql 1+(A) Negative [facility] Glucose, ur ql Negative Negative [facility] Ketones, ur 2+(A) Negative [facility] Bilirubin, ur 1+(A) Negative [facility] Blood, ur Negative Negative [facility] Urobilinogen, ur 4.0(A) <2.0 mg/dL [facility] Nitrite, ur Negative Negative [facility] Leukocyte esterase, ur Negative Negative [facility] UA reflex comment Reflex to microscopic UA will be performed. [facility] Urine 06/12/2021 2:3 6 PM SCALE MECHANIC 06/12/2021 2:56 PM SCALE MECHANIC Narrative [facility] - 06/12/2021 3:17 PM SCALE MECHANIC ?? Urine pH is affected by diet, medications, systemic acid-base disturbances, and renal tubular function. ??pH may affect urinary stone formation. ??For example, urine pH below 6.0 may help reduce the tendency for calcium phosphate stones and pH greater than 6.0 may reduce the tendency for uric acid stone formation. Source: [facility] [employer]. Last revised 04-18-2017 us Cassie Trent NP LAB MICROBIOLOGY - GENER AL ORDERABLES Final Result Performing Organization Address [facility] Phone Number [facility] [place] [address] * Hemoglobin A1c (06/12/2021 1:31 PM SCALE MECHANIC) [facility] Hgb A1C 5.2 4.0 - 5.6 % [facility] Estimated Average Glucose 103 mg/dL [facility] Comment: The ADA recommends reporting an estimated Average Glucose (eAG) with all Hemoglobin A1c results using the equation derived from a study of 507 normal and diabetic adults. ??Minority populations were underrepresented and children were not included. ?? (Diabetes Care 2020; 43(S1): S66-S76). ??The eAG is not equivalent to a fasting glucose. Blood 06/12/2021 1:31 PM SCALE MECHANIC 06/12/2021 1:59 PM SCALE MECHANIC us Seth Kiser MD LAB BLOOD ORDERABLES Final Result Performing Organization Address [facility] Phone Number [facility] [place] [address] * Lipid panel (06/12/2021 1:31 PM SCALE MECHANIC) [facility] Cholesterol 113 30 - 199 mg/dL [facility] Comment: Interpretive Data Ages < or = [...] on 2017. Triglycerides 92 <=149 mg/dL [facility] Comment: Interpretive Data Ages < or = [...] on 2017. HDL 44 >=40 mg/dL [facility] Comment: Interpretive Data Ages < or = [...] 2017. LDL, calculated 51 <=129 mg/dL [facility] Comment: Interpretive Data Ages < or = [...] on 2017. Non-HDL Cholesterol 69 mg/dL [facility] Comment: Interpretive Data Ages < or = [...] last revised on 2017. Chol/HDL ratio 3 [facility] Blood 06/12/2021 1:31 PM SCALE MECHANIC 06/12/2021 1:54 PM SCALE MECHANIC us Seth Kiser MD LAB BLOOD ORDERABLES Final Result [facility] [place] [address] * TSH reflex to free T4 (06/12/2021 1:31 PM SCALE MECHANIC) TSH 0.80 0.30 - 4.20 mcIUnit/mL [facility] Blood 06/12/2021 1:31 PM SCALE MECHANIC 06/12/2021 1:54 PM SCALE MECHANIC us Seth Kiser MD LAB BLOOD ORDERABLES Final Result [facility] [place] [address] * eGFR (06/12/2021 1:31 PM SCALE MECHANIC) eGFR >90 90 - 130 mL/min/1. 73 m2 [facility] Comment: Interpretive Data Reference Interval Normal [...] last reviewed 2021. Blood 06/12/2021 1:31 PM SCALE MECHANIC 06/12/2021 1:54 PM SCALE MECHANIC us Cassie Rika Arackal [employer] LAB BLOOD ORDERABLES Fin al Result [facility] [place] [address] * Differential, auto (06/12/2021 1:31 PM SCALE MECHANIC) Neutrophil abs 5.6 1.7 - 6.5 K/cumm [facility] Imm gran abs 0.0 0.0 - 0.1 K/cumm [facility] Lymphocyte abs 1.3 0.8 - 3.3 K/cumm [facility] Monocyte abs 0.5 0.2 - 0.8 K/cumm [facility] Eosinophil abs 0.1 0.0 - 0.5 K/cumm [facility] Basophil abs 0.0 0.0 - 0.1 K/cumm [facility] Neutrophil pct 74.5 % [facility] Comment: Interpretive Data Percent cell count reference ranges are not reported, since discordance with absolute values may lead to misinterpretation of CBC data. Current Interpretive Data was last revised on 2017. Imm gran pct 0.4 % [facility] Comment: Interpretive Data Percent cell count reference ranges are not reported, since discordance with absolute values may lead to misinterpretation of CBC data. Current Interpretive Data was last revised on 2017. Lymphocyte pct 16.8 % [facility] Comment: Interpretive Data Percent cell count reference ranges are not reported, since discordance with absolute values may lead to misinterpretation of CBC data. Current Interpretive Data was last revised on 2017. Monocyte pct 6.9 % [facility] Comment: Interpretive Data Percent cell count reference ranges are not reported, since discordance with absolute values may lead to misinterpretation of CBC data. Current Interpretive Data was last revised on 2017. Eosinophil pct 0.9 % [facility] Comment: Interpretive Data Percent cell count reference ranges are not reported, since discordance with absolute values may lead to misinterpretation of CBC data. Current Interpretive Data was last revised on 2017. Basophil pct 0.5 % [facility] Comment: Interpretive Data Percent cell count reference ranges are not reported, since discordance with absolute values may lead to misinterpretation of CBC data. Current Interpretive Data was last revised on 2017. Blood 06/12/2021 1:31 PM SCALE MECHANIC 06/12/2021 1:54 PM SCALE MECHANIC Cassie Trent [employer] LAB BLOOD ORDERABLES Fin al Result Performing Organization Address City/[facility]/ZIP Co de Phone Number [facility] [place] [address] * (ABNORMAL) CBC with auto differential (06/12/2021 1:31 PM SCALE MECHANIC) WBC 7.5 3.8 - 9.9 K/cumm [facility] Hgb 13.5 13.0 - 17.5 g/dL [facility] Hct 39.4 38.9 - 50.3 % [facility] Plt 126(L) 150 - 400 K/cumm [facility] MPV 10.6 9.1 - 12.3 fL [facility] RBC 3.87(L) 4.30 - 5.80 M/cumm [facility] MCV 101.8(H) 81.3 - 96.4 fL [facility] MCH 34.9(H) 27.1 - 33.3 pg [facility] MCHC 34.3 32.3 - 35.7 g/dL [facility] RDW CV 12.8 11.1 - 14.9 % [facility] RDW SD 47.8 35.7 - 48.1 fL [facility] NRBC abs 0.00 0.00 - 0.01 K/cumm [facility] Blood 06/12/2021 1:31 PM SCALE MECHANIC 06/12/2021 1:54 PM SCALE MECHANIC Cassie Trent FISH [employer] LAB BLOOD ORDERABLES Fin al Result Performing Organization Address City/[facility]/ZIP Co de Phone Number [facility] [place] [address] * Phosphorus (06/12/2021 1:31 PM SCALE MECHANIC) Phosphorus, pl 3.7 2.3 - 4.5 mg/dL [facility] Blood 06/12/2021 1:31 PM SCALE MECHANIC 06/12/2021 1:54 PM SCALE MECHANIC [facility] FISH SMOKER LAB BLOOD ORDERABLES Fin al Result Performing Organization Address [facility] de Phone Number [facility] Department [place] [address] * (ABNORMAL) Magnesium (06/12/2021 1:31 PM SCALE MECHANIC) Pathologist [facility] Magnesium 2.9(H) 1.4 - 2.5 mg/dL [facility] Blood 06/12/2021 1:31 PM SCALE MECHANIC 06/12/2021 1:54 PM SCALE MECHANIC [facility] LAB BLOOD ORDERABLES Fin al Result Performing Organization Address [facility] de Phone Number [facility] [place] [address] * (ABNORMAL) Comprehensive metabolic panel (06/12/2021 1:31 PM SCALE MECHANIC) Pathologist [facility] Sodium 146(H) 135 - 145 mmol/L [facility] Comment:Repeated and Verifie d Potassium, pl 3.8 3.3 - 4.9 mmol/L [facility] Chloride 111(H) 97 - 110 mmol/L [facility] Comment:Repeated and Verifie d CO2 25 22 - 32 mmol/L [facility] Anion gap 11 2 - 15 mmol/L [facility] BUN 9 8 - 25 mg/dL [facility] Creatinine 0.74(L) 0.80 - 1.30 mg/dL [facility] Glucose 85 70 - 199 mg/dL [facility] Comment: Interpretive Data Fasting glucose >/= [...] 2017. Calcium 8.0(L) 8.5 - 10.3 mg/dL [facility] Bilirubin, total 0.7 0.1 - 1.2 mg/dL [facility] Protein, pl 5.5(L) 6.5 - 8.5 g/dL [facility] Albumin 3.0(L) 3.5 - 5.0 g/dL [facility] Alk phos 86 40 - 130 Units/L [facility] ALT 11 7 - 55 Units/L [facility] AST 25 10 - 50 Units/L [facility] Blood 06/12/2021 1:31 PM SCALE MECHANIC 06/12/2021 1:54 PM SCALE MECHANIC us Cassie Trent FISH SMOKER LAB BLOOD ORDERABLES Fin al Result [facility] Department [place] [address] * XR Abdomen Ap 1 Vw (06/12/2021 12:41 PM SCALE MECHANIC) Anatomical Region Laterality Modality Body, Abdomen N/A Computed Radiogr aphy 06/12/2021 1:51 PM SCALE MECHANIC Impressions 06/12/2021 2:11 PM SCALE MECHANIC A single view of the abdomen is submitted for evaluation. Interval placement of a gastric tube, with side-port and tip projecting over the gastric body and gastric cardia, respectively. Visualized bowel gas pattern is normal. The inferior pelvis is collimated out of the [id number]. Dictated by: Bill Candelario MD PHD The radiology attending physician has personally reviewed this study, and had reviewed and/or edited this written report and agrees with it. Electronically signed by: Jessica Chicas M.D. Narrative 06/12/2021 2:11 PM SCALE MECHANIC EXAMINATION: Abdomen, one view. HISTORY: Check tube [...] inferior pelvis is collimated out of the [id number]. Dictated by: Bill Candelario MD PHD The radiology attending physician has personally reviewed this study, and had reviewed and/or edited this written report and agrees with it. Electronically signed by: Jessica Chicas M.D. Cassie Trent FISH SMOKER IMG XR PROCEDURES Final Result * XR chest 1 view (Portable) (06/12/2021 12:18 PM SCALE MECHANIC) Anatomical Region Laterality Modality Body, Chest N/A Computed Radiogr aphy 06/12/2021 2:16 PM SCALE MECHANIC Impressions 06/12/2021 5:45 PM SCALE MECHANIC Comparison is made to 06/11/2021. A gastric [...] Tommy Bearden M.D. Narrative 06/12/2021 5:45 PM SCALE MECHANIC EXAMINATION: 1 view chest radiograph Procedure Note [...] NP IMG XR PROCEDURES Final Result * COVID-19 Coronavirus RNA Nasopharyngeal (06/12/2021 12:14 PM SCALE MECHANIC) [facility] COVID-19 RNA Not Detected [facility] Comment: Interpretive Data Synonyms for this test include: PCR and NAAT . ??Testing performed by the [facility] Molecular Infectious Disease Laboratory. The 2019-Novel [...] 12, 2020. Nasopharyngeal 06/12/2021 12 :14 PM SCALE MECHANIC 06/12/2021 1:47 PM SCALE MECHANIC Narrative [facility] - 06/12/2021 8:33 PM SCALE MECHANIC What is the reason for testing?->Patient history unknown (Batched) Cassie Trent NP LAB MICROBIOLOGY - GENER AL ORDERABLES Final Result [facility] Department [place] [address] * ECG 12 lead (06/12/2021 12:13 PM SCALE MECHANIC) [facility] Ventricular Rate EKG/Min 148 BPM [facility] Atrial Rate 156 BPM [facility] QRS-Interval (MSEC) 72 ms [facility] QT-Interval (MSEC) 304 ms [facility] QTc 477 ms [facility] R [place] 38 degrees [facility] T [place] -57 degrees [facility] Diagnosis Atrial fibrillation with rapid ventricular response Nonspecific ST and T wave abnormality Abnormal ECG When compared with ECG of 12-JUN-2021 04:11, (unconfirmed) Criteria for Septal infarct are no longer Present Confirmed by KERRY NICOLE M.D ([id number]) on 06/13/2021 9:16:46 AM [facility] 06/12/2021 12:1 3 PM SCALE MECHANIC 06/13/2021 9:16 AM SCALE MECHANIC us Prosper Rodrigues MD ECG ORDERABLES Final Result [facility] * CT Head WO Contrast (06/12/2021 12:11 PM SCALE MECHANIC) Anatomical Region Laterality Modality Head and Neck N/A Computed Tomogra phy 06/12/2021 12:4 5 PM SCALE MECHANIC Impressions 06/12/2021 2:15 PM SCALE MECHANIC Evolving small volume intraventricular hemorrhage and subarachnoid hemorrhage not as well visualized on the current exam. There is no evidence of interval bleed. Dictated by: Vadim Alonzo MD The radiology attending physician has personally reviewed this study, and had reviewed and/or edited this written report and agrees with it. Electronically signed by: Peace Andre M.D. Narrative 06/12/2021 2:15 PM SCALE MECHANIC EXAMINATION: CT head without contrast HISTORY: Patient presented to an OSH following a fall with associated LOC and head trauma. This occurred after drinking reported [address] negative for intracranial hemorrhage, but subsequent bMRI notable for small volume intraventricular hemorrhage. He was then transferred to [facility] for further evaluation and management. TECHNIQUE: Noncontrast [...] intraventricular hemorrhage. He was then transferred to [facility] for further evaluation and management. TECHNIQUE: [...] signed by: Peace Andre M.D. Cassie Trent NP IMG CT PROCEDURES Final Result * eGFR (06/12/2021 11:44 AM SCALE MECHANIC) eGFR See Comment 90 - 130 [facility] Comment: Credited: Sample investigated and found to be an improper collection (e.g., IV fluid contamination, improper tube type). Deleted at the Request of Radha Shi RN on 06/12/2021 13:21:53 SCALE MECHANIC by sharan. Interpretive Data Reference Interval Normal [...] reviewed 2021. Blood 06/12/2021 11:4 4 AM SCALE MECHANIC 06/12/2021 11:55 AM SCALE MECHANIC Cassie Trent NP LAB BLOOD ORDERABLES Aime renetta Result - Final [facility] [place] [address] * Differential, auto (06/12/2021 11:44 AM SCALE MECHANIC) Neutrophil abs 4.7 1.7 - 6.5 K/cumm [facility] Imm gran abs 0.0 0.0 - 0.1 K/cumm [facility] Lymphocyte abs 1.3 0.8 - 3.3 K/cumm [facility] Monocyte abs 0.4 0.2 - 0.8 K/cumm [facility] Eosinophil abs 0.1 0.0 - 0.5 K/cumm [facility] Basophil abs 0.0 0.0 - 0.1 K/cumm [facility] Neutrophil pct 72.7 % [facility] Comment: Interpretive Data Percent cell count reference ranges are not reported, since discordance with absolute values may lead to misinterpretation of CBC data. Current Interpretive Data was last revised on 2017. Imm gran pct 0.2 % [facility] Comment: Interpretive Data Percent cell count reference ranges are not reported, since discordance with absolute values may lead to misinterpretation of CBC data. Current Interpretive Data was last revised on 2017. Lymphocyte pct 19.2 % [facility] Comment: Interpretive Data Percent cell count reference ranges are not reported, since discordance with absolute values may lead to misinterpretation of CBC data. Current Interpretive Data was last revised on 2017. Monocyte pct 6.5 % [facility] Comment: Interpretive Data Percent cell count reference ranges are not reported, since discordance with absolute values may lead to misinterpretation of CBC data. Current Interpretive Data was last revised on 2017. Eosinophil pct 1.1 % [facility] Comment: Interpretive Data Percent cell count reference ranges are not reported, since discordance with absolute values may lead to misinterpretation of CBC data. Current Interpretive Data was last revised on 2017. Basophil pct 0.3 % [facility] Comment: Interpretive Data Percent cell count reference ranges are not reported, since discordance with absolute values may lead to misinterpretation of CBC data. Current Interpretive Data was last revised on 2017. Blood 06/12/2021 11:4 4 AM SCALE MECHANIC 06/12/2021 11:55 AM SCALE MECHANIC Cassie Trent LAB BLOOD ORDERABLES Fin al Result Performing Organization Address City/[facility]/ZIP Co de Phone Number [facility] [place] [address] * (ABNORMAL) CBC with auto differential (06/12/2021 11:44 AM SCALE MECHANIC) [facility] WBC 6.5 3.8 - 9.9 K/cumm [facility] Hgb 12.5(L) 13.0 - 17.5 g/dL [facility] Hct 37.5(L) 38.9 - 50.3 % [facility] Plt 74(L) 150 - 400 K/cumm [facility] Comment:No clot detected in sample. Although platelets are clumped on slide, platelet estimate appears adequate to increased in number. MPV 11.5 9.1 - 12.3 fL [facility] RBC 3.60(L) 4.30 - 5.80 M/cumm [facility] MCV 104.2(H) 81.3 - 96.4 fL [facility] MCH 34.7(H) 27.1 - 33.3 pg [facility] MCHC 33.3 32.3 - 35.7 g/dL [facility] RDW CV 12.7 11.1 - 14.9 % [facility] RDW SD 48.6(H) 35.7 - 48.1 fL [facility] NRBC abs 0.00 0.00 - 0.01 K/cumm [facility] Blood 06/12/2021 11:4 4 AM SCALE MECHANIC 06/12/2021 11:55 AM SCALE MECHANIC Cassie Trent LAB BLOOD ORDERABLES Fin al Result Performing Organization Address [facility] Co de Phone Number [facility] [place] [address] * (ABNORMAL) Blood gas, arterial (06/12/2021 11:44 AM SCALE MECHANIC) pH, Art 7.47(H) 7.35 - 7.45 [facility] PCO2, Arterial 31(L) 35 - 45 mmHg [facility] PO2, Arterial 105 83 - 108 mmHg [facility] HCO3 Art (Calculated) 23 20 - 30 mmol/L [facility] BE, art 0 mmol/L [facility] Comment: Interpretive Data No Reference Range Established Current Interpretive Data was last revised on 2017 O2 Sat Art (Measured) 98(H) 90 - 95 % [facility] Blood 06/12/2021 11:4 4 AM SCALE MECHANIC 06/12/2021 11:53 AM SCALE MECHANIC Cassie Trent [employer] [facility] LAB BLOOD ORDERABLES Fin al Result Performing Organization Address City/[facility]/ZIP Co de Phone Number [facility] [place] [employer] [place] [address] * Type and screen (06/12/2021 11:44 AM SCALE MECHANIC) Pathologist [facility] Nancy, indirect Negative [facility] ABO Rh O Positive [facility] Blood 06/12/2021 11:4 4 AM SCALE MECHANIC 06/12/2021 11:55 AM SCALE MECHANIC Narrative [facility] - 06/12/2021 12:44 PM SCALE MECHANIC Has the patient had Daratumumab or Isatuximab in the past 6 months?->Unknown Cassie Trent [employer] LAB BLOOD BANK TEST ORDE RABLES Final Result [facility] [place] [employer] [place] [address] * Phosphorus (06/12/2021 11:44 AM SCALE MECHANIC) Pathologist [facility] Phosphorus, pl See Comment 2.3 - 4.5 mg/dL [facility] Comment:Credited: Sample inv estigated and found to be an improper collection (e.g., IV fluid contamination, improper tube type). Deleted at the Request of Radha Shi RN on 06/12/2021 13:21:53 SCALE MECHANIC by sharan. Blood 06/12/2021 11:4 4 AM SCALE MECHANIC 06/12/2021 11:55 AM SCALE MECHANIC [facility]LOOD ORDERABLES Aime renetta Result - Final Performing Organization Address [facility] de Phone Number [facility] [place] [place] [address] * Magnesium (06/12/2021 11:44 AM SCALE MECHANIC) Magnesium See Comment 1.4 - 2.5 mg/dL [facility] Comment: Repeated and Verified Critical result called to and read back by Radha WINTER) on 06/12/2021 13:21:20 SCALE MECHANIC to sharan. Credited: Sample investigated and found to be an improper collection (e.g., IV fluid contamination, improper tube type). Deleted at the Request of Radha Shi RN on 06/12/2021 13:21:53 SCALE MECHANIC by sharan. Blood 06/12/2021 11:4 4 AM SCALE MECHANIC 06/12/2021 11:55 AM SCALE MECHANIC Cassie Trent LAB BLOOD ORDERABLES Aime renetta Result - Final Performing Organization Address [facility] [place] [address] * Comprehensive metabolic panel (06/12/2021 11:44 AM SCALE MECHANIC) Sodium See Comment 135 - 145 mmol/L [facility] Comment: Repeated and Verified Critical result called to and read back by Radha WINTER) on 06/12/2021 13:21:20 SCALE MECHANIC to sharan. Credited: Sample investigated and found to be an improper collection (e.g., IV fluid contamination, improper tube type). Deleted at the Request of Radha Shi RN on 06/12/2021 13:21:53 SCALE MECHANIC by sharan. Potassium, pl See Comment 3.3 - 4.9 mmol/L [facility] Comment: Hemolyzed; Potassium value may be falsely elevated by as much as 0.3-0.5 mmol/L. ??Suggest redraw and reanalysis. Credited: Sample investigated and found to be an improper collection (e.g., IV fluid contamination, improper tube type). Deleted at the Request of Radha Shi RN on 06/12/2021 13:21:53 SCALE MECHANIC by sharan. Chloride See Comment 97 - 110 mmol/L [facility] Comment: Repeated and Verified Credited: Sample investigated and found to be an improper collection (e.g., IV fluid contamination, improper tube type). Deleted at the Request of Radha Shi RN on 06/12/2021 13:21:53 SCALE MECHANIC by sharan. CO2 See Comment 22 - 32 mmol/L [facility] Comment:Credited: Sample inv estigated and found to be an improper collection (e.g., IV fluid contamination, improper tube type). Deleted at the Request of Radha Shi RN on 06/12/2021 13:21:53 SCALE MECHANIC by sharan. Anion gap See Comment 2 - 15 mmol/L [facility] Comment:Credited: Sample inv estigated and found to be an improper collection (e.g., IV fluid contamination, improper tube type). Deleted at the Request of Radha Shi RN on 06/12/2021 13:21:53 SCALE MECHANIC by sharan. BUN See Comment 8 - 25 mg/dL [facility] Comment:Credited: Sample inv estigated and found to be an improper collection (e.g., IV fluid contamination, improper tube type). Deleted at the Request of Radha Shi RN on 06/12/2021 13:21:53 SCALE MECHANIC by sharan. Creatinine See Comment 0.80 - 1.30 mg/dL [facility] Comment:Credited: Sample inv estigated and found to be an improper collection (e.g., IV fluid contamination, improper tube type). Deleted at the Request of Radha Shi RN on 06/12/2021 13:21:53 SCALE MECHANIC by sharan. Glucose See Comment 70 - 199 mg/dL [facility] Comment: Credited: Sample investigated and found to be an improper collection (e.g., IV fluid contamination, improper tube type). Deleted at the Request of Radha Shi RN on 06/12/2021 13:21:53 SCALE MECHANIC by sharan. Interpretive Data Fasting glucose >/= [...] Calcium See Comment 8.5 - 10.3 mg/dL [facility] Comment: Reviewed Critical result called to and read back by Radha Shi (GAURAV) on 06/12/2021 13:21:20 SCALE MECHANIC to jl. Credited: Sample investigated and found to be an improper collection (e.g., IV fluid contamination, improper tube type). Deleted at the Request of Radha Shi RN on 06/12/2021 13:21:53 SCALE MECHANIC by sharan. Bilirubin, total See Comment 0.1 - 1.2 mg/dL [facility] Comment:Credited: Sample inv estigated and found to be an improper collection (e.g., IV fluid contamination, improper tube type). Deleted at the Request of Radha Shi RN on 06/12/2021 13:21:53 SCALE MECHANIC by sharan. Protein, pl See Comment 6.5 - 8.5 g/dL [facility] Comment:Credited: Sample inv estigated and found to be an improper collection (e.g., IV fluid contamination, improper tube type). Deleted at the Request of Radha Shi RN on 06/12/2021 13:21:53 SCALE MECHANIC by sharan. Albumin See Comment 3.5 - 5.0 g/dL [facility] Comment:Credited: Sample inv estigated and found to be an improper collection (e.g., IV fluid contamination, improper tube type). Deleted at the Request of Radha Shi RN on 06/12/2021 13:21:53 SCALE MECHANIC by sharan. Alk phos See Comment 40 - 130 Units/L [facility] Comment:Credited: Sample inv estigated and found to be an improper collection (e.g., IV fluid contamination, improper tube type). Deleted at the Request of Radha Shi RN on 06/12/2021 13:21:53 SCALE MECHANIC by sharan. ALT See Comment 7 - 55 Units/L [facility] Comment:Credited: Sample inv estigated and found to be an improper collection (e.g., IV fluid contamination, improper tube type). Deleted at the Request of Radha Shi RN on 06/12/2021 13:21:53 SCALE MECHANIC by sharan. AST See Comment 10 - 50 Units/L [facility] Comment: Hemolyzed; result may be falsely elevated Credited: Sample investigated and found to be an improper collection (e.g., IV fluid contamination, improper tube type). Deleted at the Request of Radha Shi RN on 06/12/2021 13:21:53 SCALE MECHANIC by sharan. Blood 06/12/2021 11:4 4 AM SCALE MECHANIC 06/12/2021 11:55 AM SCALE MECHANIC Cassie Trent [employer] LAB BLOOD ORDERABLES Aime renetta Result - Final Performing Organization Address [facility]/ZIP Co de Phone Number [facility] [place] [employer] [place] [address] * POCT glucose (06/12/2021 11:11 AM SCALE MECHANIC) [facility] Signature Glucose, POC 90 70 - 199 mg/dL [facility] Blood 06/12/2021 11:1 1 AM SCALE MECHANIC 06/12/2021 11:11 AM SCALE MECHANIC Seth Kiser MD LAB POCT ORDERABLES - DEVIC E Final Result Performing Organization Address [facility]/ZIP Co de Phone Number [facility] [place] [address] * (ABNORMAL) Arterial Blood gas w/Lactate POCT (06/12/2021 10:53 AM SCALE MECHANIC) Lactate POC i-STAT <0.5(L) 0.7 - 2.2 mmol/L [facility] pH POC 7.43 7.35 - 7.45 [facility] pCO2, Art POC 36 35 - 45 mmHg [facility] PO2 POC 82 80 - 105 mmHg [facility] CO2, total POC 24 20 - 30 mmol/L [facility] HCO3, POC 23 21 - 30 mmol/L [facility] BE POC -1 -2 - 3 mmol/L [facility] O2 sat POC 96 95 - 98 % [facility] Blood 06/12/2021 10:5 3 AM SCALE MECHANIC 06/12/2021 10:53 AM SCALE MECHANIC us Seth Kiser MD LAB BLOOD ORDERABLES Final Result Performing Organization Address [facility] de Phone Number [facility] [place] [employer] [place] [address] * (ABNORMAL) Blood gas, arterial (06/12/2021 9:59 AM SCALE MECHANIC) pH, Art 7.41 7.35 - 7.45 [facility] PCO2, Arterial 38 35 - 45 mmHg [facility] PO2, Arterial 77(L) 83 - 108 mmHg [facility] HCO3 Art (Calculated) 24 20 - 30 mmol/L [facility] BE, art 0 mmol/L [facility] Comment: Interpretive Data No Reference Range Established Current Interpretive Data was last revised on 2017 O2 Sat Art (Measured) 94 90 - 95 % [facility] Blood 06/12/2021 9:59 AM SCALE MECHANIC 06/12/2021 10:39 AM SCALE MECHANIC us Mark Early NP LAB BLOOD ORDERABLES Mariangel l Result Performing Organization Address [facility]/ZIP Co de Phone Number [facility] [place] [address] * POCT glucose (06/12/2021 4:12 AM SCALE MECHANIC) Glucose, POC 88 70 - 199 mg/dL [facility] Blood 06/12/2021 4:12 AM SCALE MECHANIC 06/12/2021 4:12 AM SCALE MECHANIC us Seth Kiser MD LAB POCT ORDERABLES - DEVIC E Final Result Performing Organization Address [facility] de Phone Number [facility] Department [place] [address] * ECG 12 lead (06/12/2021 4:11 AM SCALE MECHANIC) Pathologist [facility] Ventricular Rate EKG/Min 112 BPM [facility] Atrial Rate 150 BPM [facility] QRS-Interval (MSEC) 76 ms [facility] QT-Interval (MSEC) 340 ms [facility] QTc 464 ms [facility] R [place] 26 degrees [facility] T [place] -24 degrees [facility] Diagnosis Atrial fibrillation with rapid ventricular response with premature ventricular or aberrantly conducted complexes Septal infarct (cited on or before 11-JUN-2021) Abnormal ECG When compared with ECG of 11-JUN-2021 19:45, (unconfirmed) Questionable change in initial forces of Septal leads Confirmed by VENKAT KANG M.D ([id number]) on 06/12/2021 1:42:01 PM [facility] 06/12/2021 4:11 AM SCALE MECHANIC 06/12/2021 1:42 PM SCALE MECHANIC us Seth Kiser MD ECG ORDERABLES Final Resul t Performing Organization Address [facility] de Phone Number [facility] * XR Chest 1 View (06/11/2021 10:20 PM SCALE MECHANIC) Anatomical Region Laterality Modality Body, Chest N/A Computed Radiogr aphy 06/12/2021 8:57 AM SCALE MECHANIC Impressions 06/12/2021 12:41 PM SCALE MECHANIC The current study is compared with the [...] Tommy Bearden M.D. Narrative 06/12/2021 12:41 PM SCALE MECHANIC EXAMINATION: 1 view chest radiograph Procedure Note [...] microscopic and culture Urine (06/11/2021 10:02 PM SCALE MECHANIC) Color, ur Yellow Yellow [facility] Clarity, ur Clear Clear [facility] Specific gravity, ur 1.013 1.003 - 1.030 [facility] pH, urine 7.5 [facility] Protein, ur ql Negative Negative [facility] Glucose, ur ql Negative Negative [facility] Ketones, ur 1+(A) Negative [facility] Bilirubin, ur Negative Negative [facility] Blood, ur Negative Negative [facility] Urobilinogen, ur 2.0(A) <2.0 mg/dL [facility] Nitrite, ur Negative Negative [facility] Leukocyte esterase, ur Negative Negative [facility] UA reflex comment Reflex conditions for microscopic UA and culture not met. [facility] Urine 06/11/2021 10:0 2 PM SCALE MECHANIC 06/11/2021 10:22 PM SCALE MECHANIC Narrative [facility] - 06/11/2021 10:32 PM SCALE MECHANIC ?? Urine pH is affected by diet, medications, systemic acid-base disturbances, and renal tubular function. ??pH may affect urinary stone formation. ??For example, urine pH below 6.0 may help reduce the tendency for calcium phosphate stones and pH greater than 6.0 may reduce the tendency for uric acid stone formation. Source: [employer]. Last revised 04-18-2017 us Seth Kiser MD LAB MICROBIOLOGY - GENERAL ORDERABLES Final Result [facility] Department [place] [address] * CT Head WO Contrast (06/11/2021 9:23 PM SCALE MECHANIC) Anatomical Region Laterality Modality Head and Neck N/A Computed Tomogra phy 06/11/2021 10:1 2 PM SCALE MECHANIC Impressions 06/12/2021 5:29 AM SCALE MECHANIC Scattered subarachnoid hemorrhage and intraventricular hemorrhage and [...] Kerwin Doss M.D. Narrative 06/12/2021 5:29 AM SCALE MECHANIC EXAMINATION: CT head without contrast HISTORY: Found [...] Kerwin Doss M.D. us Seth Kiser MD IM CT PROCEDURES Final Res ult * eGFR (06/11/2021 8:29 PM SCALE MECHANIC) eGFR >90 90 - 130 mL/min/1. 73 m2 [facility] Comment: Interpretive Data Reference Interval Normal [...] last reviewed 2021. Blood 06/11/2021 8:29 PM SCALE MECHANIC 06/11/2021 8:47 PM SCALE MECHANIC us Seth Kiser MD LAB BLOOD ORDERABLES Final Result Performing Organization Address City/State/ZIP Il de Phone Number [facility] [place] [address] * Differential, auto (06/11/2021 8:29 PM SCALE MECHANIC) Pathologist [facility] Neutrophil abs 5.0 1.7 - 6.5 K/cumm [facility] Imm gran abs 0.0 0.0 - 0.1 K/cumm [facility] Lymphocyte abs 1.5 0.8 - 3.3 K/cumm [facility] Monocyte abs 0.5 0.2 - 0.8 K/cumm [facility] Eosinophil abs 0.1 0.0 - 0.5 K/cumm [facility] Basophil abs 0.0 0.0 - 0.1 K/cumm [facility] Neutrophil pct 69.9 % [facility] Comment: Interpretive Data Percent cell count reference ranges are not reported, since discordance with absolute values may lead to misinterpretation of CBC data. Current Interpretive Data was last revised on 2017. Imm gran pct 0.4 % [facility] Comment: Interpretive Data Percent cell count reference ranges are not reported, since discordance with absolute values may lead to misinterpretation of CBC data. Current Interpretive Data was last revised on 2017. Lymphocyte pct 20.6 % [facility] Comment: Interpretive Data Percent cell count reference ranges are not reported, since discordance with absolute values may lead to misinterpretation of CBC data. Current Interpretive Data was last revised on 2017. Monocyte pct 6.9 % [facility] Comment: Interpretive Data Percent cell count reference ranges are not reported, since discordance with absolute values may lead to misinterpretation of CBC data. Current Interpretive Data was last revised on 2017. Eosinophil pct 1.6 % [facility] Comment: Interpretive Data Percent cell count reference ranges are not reported, since discordance with absolute values may lead to misinterpretation of CBC data. Current Interpretive Data was last revised on 2017. Basophil pct 0.6 % [facility] Comment: Interpretive Data Percent cell count reference ranges are not reported, since discordance with absolute values may lead to misinterpretation of CBC data. Current Interpretive Data was last revised on 2017. Blood 06/11/2021 8:29 PM SCALE MECHANIC 06/11/2021 8:47 PM SCALE MECHANIC us Seth Kiser MD LAB BLOOD ORDERABLES Final Result [facility] [place] [address] * (ABNORMAL) CBC with auto differential (06/11/2021 8:29 PM SCALE MECHANIC) WBC 7.1 3.8 - 9.9 K/cumm [facility] Hgb 14.9 13.0 - 17.5 g/dL [facility] Hct 42.7 38.9 - 50.3 % [facility] Plt 137(L) 150 - 400 K/cumm [facility] MPV 11.0 9.1 - 12.3 fL [facility] RBC 4.28(L) 4.30 - 5.80 M/cumm [facility] MCV 99.8(H) 81.3 - 96.4 fL [facility] MCH 34.8(H) 27.1 - 33.3 pg [facility] MCHC 34.9 32.3 - 35.7 g/dL [facility] RDW CV 12.7 11.1 - 14.9 % [facility] RDW SD 46.2 35.7 - 48.1 fL [facility] NRBC abs 0.00 0.00 - 0.01 K/cumm [facility] Blood 06/11/2021 8:29 PM SCALE MECHANIC 06/11/2021 8:47 PM SCALE MECHANIC us Seth Kiser MD LAB BLOOD ORDERABLES Final Result [facility] Department [place] [address] * (ABNORMAL) Basic metabolic panel (06/11/2021 8:29 PM SCALE MECHANIC) Sodium 143 135 - 145 mmol/L [facility] Potassium, pl 3.8 3.3 - 4.9 mmol/L [facility] Chloride 106 97 - 110 mmol/L [facility] CO2 30 22 - 32 mmol/L [facility] Anion gap 7 2 - 15 mmol/L [facility] BUN 8 8 - 25 mg/dL [facility] Creatinine 0.75(L) 0.80 - 1.30 mg/dL [facility] Glucose 103 70 - 199 mg/dL [facility] Comment: Interpretive Data Fasting glucose >/= [...] 2017. Calcium 9.2 8.5 - 10.3 mg/dL [facility] Blood 06/11/2021 8:29 PM SCALE MECHANIC 06/11/2021 8:47 PM SCALE MECHANIC Seth Kiser MD LAB BLOOD ORDERABLES Final Result Performing Organization Address [facility] de Phone Number [facility] [place] [place] [address] * aPTT (06/11/2021 8:29 PM SCALE MECHANIC) aPTT 31 27 - 37 sec [facility] Comment: Interpretive Data Therapeutic heparin range: 60.0 - 94.0 seconds. Based on correlation with therapeutic heparin activity range of 0.3-0.7 Units/mL. Current interpretive data was last revised on 2020. Blood 06/11/2021 8:29 PM SCALE MECHANIC 06/11/2021 8:48 PM SCALE MECHANIC Seth Kiser MD LAB BLOOD ORDERABLES Final Result Performing Organization Address [facility] de Phone Number [facility] [place] [employer] [place] [address] * Protime-INR (06/11/2021 8:29 PM SCALE MECHANIC) PT 12.5 9.5 - 13.6 sec [facility] INR 1.1 0.9 - 1.2 [facility] Comment: Interpretive data Oral anticoagulant therapeutic ranges: Venous thromboembolism prophylaxis or treatment: 2.0-3.0 CARDIOLOGY Standard range: 2.0-3.0 High-intensity range: 2.5-3.5 Refer to indication-specific guidelines for appropriate target ranges for prosthetic heart valve replacement. Current interpretive data was last revised on 2019. Blood 06/11/2021 8:29 PM SCALE MECHANIC 06/11/2021 8:48 PM SCALE MECHANIC Seth Kiser MD LAB BLOOD ORDERABLES Final Result Performing Organization Address [facility] de Phone Number [facility] [employer] [place] [address] * Type and screen (06/11/2021 8:29 PM SCALE MECHANIC) ABO Rh O Positive [facility] Nancy, indirect Negative [facility] Blood 06/11/2021 8:29 PM SCALE MECHANIC 06/11/2021 9:08 PM SCALE MECHANIC Narrative [facility] - 06/11/2021 10:32 PM SCALE MECHANIC Has the patient had Daratumumab or Isatuximab in the past 6 months?->Unknown Seth Kiser MD LAB BLOOD BANK TEST ORDERAB LES Final Result Performing Organization Address [facility] [place] [address] * Neuro CT MR Outside Consult (06/11/2021 7:53 PM SCALE MECHANIC) Anatomical Region Laterality Modality N/A Computed Tomogra phy 06/12/2021 10:4 6 AM SCALE MECHANIC Impressions 06/12/2021 3:53 PM SCALE MECHANIC 1. ??Small amount of intraventricular hemorrhage layering [...] images may or may not represent the [place] source data set and thus may contain changes that may lower the accuracy of this second-opinion interpretation. Dictated by: Chelsy Joshi MD The radiology attending physician has personally reviewed this study, and had reviewed and/or edited this written report and agrees with it. Electronically signed by: Krista Rosado M.D. Narrative 06/12/2021 3:53 PM SCALE MECHANIC EXAMINATION: RADIOLOGY CONSULTATION ON OUTSIDE IMAGING STUDY STUDY INITIALLY PERFORMED: 06/11/2021 at [facility] TYPE OF STUDY: Multiple MRI [...] IMAGING STUDY STUDY INITIALLY PERFORMED: 06/11/2021 at [facility] TYPE OF STUDY: Multiple MRI [...] images may or may not represent the [place] source data set and thus may contain [...] CT MR Outside Consult (06/11/2021 7:52 PM SCALE MECHANIC) Anatomical Region Laterality Modality N/A Computed Tomogra phy 06/11/2021 9:37 PM SCALE MECHANIC Impressions 06/12/2021 7:57 AM SCALE MECHANIC This study was initially nominated as a consult on outside images via [facility]. However, a consult was not performed because a more recent head CT was performed at [facility] on 06/11/2021. ??Accordingly, there will be no separate report of this study generated by a [facility] Radiologist. Dictated by: Shaka Preston M.D. The radiology attending physician has personally reviewed this study, and had reviewed and/or edited this written report and agrees with it. Electronically signed by: Kerwin Doss M.D. Narrative 06/12/2021 7:57 AM SCALE MECHANIC EXAMINATION: ??CHANGE CONSULT ON OUTSIDE IMAGES TO REFERENCE IMAGES Procedure Note Kerwin Doss MD - 06/12/2021 EXAMINATION: CHANGE CONSULT ON OUTSIDE IMAGES TO REFERENCE IMAGES IMPRESSION: This study was initially nominated as a consult on outside images via [employer]. However, a consult was not performed because a more recent head CT was performed at [facility] on 06/11/2021. Accordingly, there will be no separate report of this study generated by a [facility] Radiologist. Dictated by: Shaka Preston M.D. The radiology attending physician has personally reviewed this study, and had reviewed and/or edited this written report and agrees with it. Electronically signed by: Kerwin Doss M.D. us Belinda Shaffer MD PhD IMG CT PROCEDURES Mariangel l Result * ECG 12 lead (06/11/2021 7:45 PM SCALE MECHANIC) Pathologist [facility] Ventricular Rate EKG/Min 116 BPM [facility] Atrial Rate 136 BPM [facility] QRS-Interval (MSEC) 70 ms [facility] QT-Interval (MSEC) 350 ms [facility] QTc 486 ms [facility] R [place] 45 degrees [facility] T [place] 10 degrees [facility] Diagnosis Atrial fibrillation with rapid ventricular response Septal infarct , age undetermined Abnormal ECG No previous ECGs available Confirmed by VENKAT KANG M.D ([id number]) on 06/12/2021 1:42:36 PM [facility] 06/11/2021 7:45 PM SCALE MECHANIC 06/12/2021 1:42 PM SCALE MECHANIC us Seth Kiser MD ECG ORDERABLES Final Resul t [facility] documented in this encounter Visit Diagnoses Diagnosis Intraventricular hemorrhage (CMS/HCC) ([facility])- Primary Diagnosis unknown Closed nondisplaced intertrochanteric fracture of left femur, initial encounter ([facility]) Closed nondisplaced intertrochanteric fracture of left femur with routine healing, subsequent encounter TBI (traumatic brain injury) ([facility]) Intracranial injury of other and unspecified nature, [...] Acute respiratory failure (HCC) Acute respiratory failure Closed nondisplaced intertrochanteric fracture of left femur, initial encounter ([facility]) documented in this encounter Administered Medications Inactive Administered Medications - up to 3 most recent administrations Medication Order MAR Action Action Date Dose Rate Site acetaminophen (TYLENOL) tablet 650 mg 650 mg, feeding tube, Every 4 hours PRN, fever, 1st line for pain, temperature greater than 38.5 C, Starting on Sat06/12/21 at 1550 Given 07/06/2021 6:49 PM CDT 650 mg Given 07/05/2021 9:29 PM CDT 650 mg Given 06/18/2021 12:35 AM SCALE MECHANIC 650 mg albuterol 2.5 mg/0.5 mL nebulizer solution 1.25 mg 1.25 mg, nebulization, Every 6 hours PRN (correspondence transcriber), wheezing, Starting on Zoe 06/22/21 at 1113 docusate (COLACE) 10 mg/mL oral liquid 100 mg 100 mg, feeding tube, Daily, First dose on Sat06/26/21 at 0900, Indications: constipationIndications:constipation Given 07/07/2021 9:49 AM CDT 100 mg Given 07/06/2021 9:56 AM CDT 100 mg Given 07/05/2021 7:55 AM CDT 100 mg famotidine (PEPCID) tablet 20 mg 20 mg, oral, Daily, First dose on Sat07/07/21 at 1045 Given 07/07/2021 11:01 AM CDT 20 mg fluticasone furoate-vilanteroL (BREO ELLIPTA) 100-25 mcg/dose inhaler 1 puff 1 puff, inhalation, Daily (correspondence transcriber), First dose on 07/01/21 at 1430, Rinse mouth with water after use. Do not swallow. Given 07/07/2021 8:13 AM CDT 1 puff Given 07/06/2021 9:50 AM CDT 1 puff Given 07/05/2021 4:37 PM CDT 1 puff heparin 5,000 unit/mL injection 5,000 Units 5,000 Units, subcutaneous, Every 8 hours scheduled, First dose on Sat07/04/21 at 2200, Indications: Deep Vein Thrombosis PreventionIndications:Deep Vein Thrombosis Prevention Given 07/07/2021 2:16 PM CDT 5,000 Units Left Lower Abdomen Given 07/07/2021 6:47 AM CDT 5,000 Units L eft Upper Abdomen Given 07/06/2021 8:29 PM CDT 5,000 Units L eft Lower Abdomen metoprolol (LOPRESSOR) tablet 100 mg 100 mg, feeding tube, 2 times daily, First dose (after last modification) on Sat07/05/21 at 0900 Given 07/07/2021 9:50 AM CDT 100 mg Given 07/06/2021 8:29 PM CDT 100 mg Given 07/06/2021 9:56 AM CDT 100 mg miconazole (SECURA THICK) 2 % cream topical, 2 times daily, First dose on Sat06/27/21 at 2100, Apply to affected area: perineum, other Given 07/07/2021 10:0 5 AM CDT Given 07/06/2021 8:27 PM CDT Given 07/05/2021 7:59 AM CDT kjslkhbh-yii-uqvfbha gluconate (CENTRUM) 0.6 mg iron/mL oral liquid 15 mL 15 mL, feeding tube, Daily, First dose on Sat06/12/21 at 1245 Given 07/07/2021 9:49 AM CDT 15 mL Given 07/06/2021 9:56 AM CDT 15 mL Given 07/05/2021 7:55 AM CDT 15 mL pravastatin (PRAVACHOL) tablet 40 mg 40 mg, [...] daily, First dose on Sat06/26/21 at 0900 Given 07/07/2021 9:49 AM CDT [...] before and after each use. , Indications: FlushingIndications:Flushing Given 06/25/2021 7:45 AM CDT 10 mL terazosin (HYTRIN) capsule 10 mg 10 mg, feeding tube, Nightly, First dose (after last modification) on Sat06/23/21 at 2100 Given 07/06/2021 8:28 PM CDT 10 mg Given 07/05/2021 9:29 PM CDT 10 mg Given 07/04/2021 7:58 PM CDT 10 mg thiamine (VITAMIN B1) [...] Given 07/04/2021 7:58 PM CDT 100 mg documented in this encounter [...] Indications: constipation 0755 (Given - Provider: Mercy Guajardo, RN) 0956 (Given - Provider: Maame Cohen, GAURAV) 0949 (Given - Provider: Peggy Deng, GAURAV) famotidine (PEPCID) tablet 20 mg 20 mg, oral, Daily, First dose on Sat07/07/21 at 1045 1101 (Given - Provid er: Peggy Deng RN) fluticasone furoate-vilanteroL (BREO ELLIPTA) 100-25 mcg/dose inhaler 1 puff 1 puff, inhalation, Daily (correspondence transcriber), First dose on 07/01/21 at 1430, Rinse mouth with water after use. Do not swallow. 1637 (Given - Provider: Zackary Barrett, BRAILLE TYPIST) 0950 (Given - Provider: Bryson Biggs, BRAILLE TYPIST) 0813 (Given - Provider: Clarence Coronado, BRAILLE TYPIST) heparin 5,000 unit/mL injection 5,000 Units 5,000 Units, subcutaneous, Every 8 hours scheduled, First dose on Sat07/04/21 at 2200, Indications: Deep Vein Thrombosis Prevention 0658 (Given - Provider: Hillary Root RN)1413 (Given - Provider: Mercy Guajardo, GAURAV)2131 (Given - Provider: Deann Ascencio, GAURAV) 0600 (Due)1306 (Given - Provider: Maame Cohen RN)2029 (Given - Provider: Deann Ascencio, GAURAV) 0647 [...] oral, 2 times daily, First dose on Zoe 07/06/21 at 0900, For 2 doses, 1 tablet = Magnesium oxide 400 mg = 241.3 mg elemental magnesium, Indications: hypomagnesemia 0956 (Given - Provider: Maame Cohen RN)2028 (Given - Provider: Deann Ascencio, GAURAV) metoprolol (LOPRESSOR) tablet 100 mg 100 mg, feeding tube, 2 times daily, First dose (after last modification) on Sat07/05/21 at 0900 0754 (Given - Provider: Mercy Guajardo, GAURAV)2128 (Given - Provider: Deann Ascencio RN) 0956 (Given - Provider: Maame Cohen RN)2028 (Given - Provider: Deann Ascencio RN) 0950 (Given - Provider: Peggy Deng, GAURAV)2100 (Due) miconazole (SECURA THICK) 2 % cream topical, 2 times daily, First dose on Sat06/27/21 at 2100, Apply to affected area: perineum, other 0759 (Given - Provider: Mercy Guajardo RN)2100 (Due - Provider: Automatic Transfer Provider) 0900 (Due - Provider: Automatic Transfer Provider)2026 (Given - Provider: Deann Ascencio RN) 1005 (Given - Provider: Peggy Deng RN)2100 (Due - Provider: Automatic Transfer Provider) bxvcrkyn-jqa-apirrkd gluconate (CENTRUM) 0.6 mg iron/mL oral liquid [...] Sleep-Onset Insomnia 1747 (Given - Provider: Mercy Guajardo RN) 1849 (Given - Provider: Cecilia Brewster RN) 1751 (Given - Provider: Trinity Wu RN) senna 1.76 mg/mL syrup 8.8 mg 8.8 mg, feeding tube, 2 times daily, First dose on Sat06/26/21 at 0900 0755 (Given - Provider: Mercy Guajardo RN)2248 (Given - Provider: Deann Ascencio RN) 0956 (Given - Provider: Maame Cohen RN)2029 (Given - Provider: Deann Ascencio RN) 0949 (Given - Provider: Peggy Deng RN)2100 (Due - Provider: Automatic Transfer Provider) sodium [...] RN)1344 (Canceled Entry - Provider: Maame Cohen RN)2034 (Given - Provider: Deann Ascencio RN) 0649 (Given - Provider: Deann Ascencio RN)1415 (Given - Provider: Peggy Deng, GAURAV) terazosin (HYTRIN) capsule 10 mg 10 mg, feeding tube, Nightly, First dose (after last modification) on Sat06/23/21 at 2100 2129 (Given - Provider: Deann Ascencio RN) 2027 (Given - Provider: Deann Ascencio RN) 2100 (Due - Provider: Automatic Transfer Provider) thiamine (VITAMIN B1) tablet 100 mg 100 mg, feeding tube, Daily, First dose on Sat06/22/21 at 1145 0754 (Given - Provider: Mercy Guajardo RN) 0956 (Given - Provider: Maame Cohen RN) 0950 (Given - Provider: Peggy Deng RN) traZODone (DESYREL) tablet 100 mg 100 mg, feeding tube, Nightly, First dose (after last modification) on Sat06/23/21 at 2100 2129 (Given - Provider: Deann Ascencio RN) 2028 (Given - Provider: Deann Ascencio RN) 2100 (Due - Provider: Automatic Transfer Provider) PRN Medication Order 07/05/2021 07/06/2021 07/07/2021 acetaminophen (TYLENOL) tablet 650 mg 650 mg, feeding tube, Every 4 hours PRN, fever, 1st line for pain, temperature greater than 38.5 C, Starting on Sat06/12/21 at 1550 2129 (Given - Provider: Deann Ascencio RN) 1849 (Given - Provider: Cecilia Brewster RN) albuterol 2.5 mg/0.5 mL nebulizer solution 1.25 mg 1.25 mg, nebulization, Every 6 hours PRN (correspondence transcriber), wheezing, Starting on Sat06/22/21 at 1113 barium sulfate (VARIBAR NECTAR) 40 [...] 07/05/21 at 1442, For 1 dose, Pre-Op/Floor 1447 [...] Count Last Ordered Date First Ordered Date famotidine (PEPCID) tablet 20 mg 2 07/08/19 22 06/11/2021 magnesium oxide (MAG-OX) tablet [address] (PROTONIX) e xtended release tablet 40 mg 1 07/06/2021 barium sulfate (VARIBAR NECT AR) 40 % (w/v) nectar 2 07/05/2021 06/26/2021 barium sulfate (VARIBAR PUDD ING) 40 % (w/v), 30% (w/w) pudding 2 07/05/2021 06/26/2021 barium sulfate (VARIBAR THIN LIQUID) 81 % (w/w) thin liquid 2 07/05/2021 06/26/2021 Lactated Ringer's (LR) bolus 1,000 mL 1 metoprolol (LOPRESSOR) tablet 100 mg 2 06/0806/11/2021 ceFAZolin (ANCEF) 2,000 mg/2 0 mL in sterile water (premix) 2,000 mg 1 07/04/2021 clindamycin (CLEOCIN) 900 mg /50 mL in sodium chloride 0.9% (premix) piggyback 900 mg 1 07/04/2021 fentaNYL (SUBLIMAZE) preserv ative free injection 50 mcg 1 07/04/2021 heparin 5,000 unit/mL inject ion 5,000 Units 4 07/04/2021 06/13/2021 HYDROmorphone (DILAUDID) injection 0.4 mg 1 07/04/2021 Lactated Ringer's (LR) infusion 1 magnesium oxide (MAG-OX) tablet 400 mg 1 metoprolol (LOPRESSOR) injection 5 mg 3 06/12/2021 naloxone (NARCAN) 0.4 mg/mL injection 0.04-0.4 mg 1 07/04/2021 sodium chloride 0.9% flush 0.5-20 mL 5 06/0706/11/2021 fluticasone furoate-vilanter oL (BREO ELLIPTA) 100-25 mcg/dose inhaler 1 puff 1 07/01/2021 potassium chloride 20 mEq/26 0 mL in sodium chloride 0.9% (premix) 20 mEq 1 07/01/2021 diatrizoate meglumine-diatri zoate sodium (GASTROGRAFIN/MD-GASTROVIEW) 66-10 % solution 30 mL 1 06/30/2021 sodium chloride 0.9% solutio n - ADS Override Pull 1 06/30/2021 dextrose 5% and Lactated Ringer's infusion 1 06/29/2021 metroNIDAZOLE (FLAGYL) tablet 500 mg 3 06/0706/20/2021 sodium chloride 0.9% infusion 2 06/28/2021 06/11/2021 sulfamethoxazole-trimethopri m (BACTRIM) 40-8 mg/mL (dosed on TMP component) oral suspension 320 mg of trimethoprim 2 06/28/20212021 bisacodyL (DULCOLAX) suppository 10 mg 2 06/11/2021 magnesium sulfate 2 g/50 mL in water (premix) 2 g 4 06/27/2021 06/14/2021 miconazole (SECURA THICK) 2 % cream 1 06/27 QUEtiapine (SEROquel) tablet 12.5 mg 1 06/07 barium sulfate (VARIBAR) 40 % (w/v) 29% (w/w) suspension 250 mL 1 06/26/2021 docusate (COLACE) 10 mg/mL o ral liquid 100 mg 2 06/26/2021 06/11/2021 senna 1.76 mg/mL syrup 8.8 mg 2 06/26/2021 06/11/2021 terazosin (HYTRIN) capsule 10 mg 2 06/24/19 22 06/12/2021 traZODone (DESYREL) tablet 100 mg 1 022 albuterol 2.5 mg/0.5 mL nebu lizer solution 1.25 mg 2 06/22/2021 metoprolol tartrate (LOPRESS OR) immediate release tablet 50 mg 2 06/22/2021 06/12/2021 terazosin (HYTRIN) capsule 20 mg 2 06/23/19 22 06/14/2021 thiamine (VITAMIN B1) tablet 100 mg 3 06/2206/12/2021 magnesium sulfate 4 g/100 mL in water (premix) 4 g 3 06/21/2021 06/12/2021 ramelteon (ROZEREM) tablet 8 mg 1 traZODone (DESYREL) tablet 50 mg 1 06/22/19 pantoprazole (PROTONIX) 4 mg /mL injection 40 mg 3 06/20/2021 06/12/2021 perflutren protein-a (OPTISO N) 0.22 mg/mL injection - ADS Override Pull 2 06/20/2021 06/13/2021 potassium chloride (KLOR-CON ) packet 40 mEq 5 06/20/2021 06/12/2021 clindamycin (CLEOCIN) 600 mg /50 mL in sodium chloride 0.9% (premix) piggyback 600 mg 1 06/18/2021 cefTRIAXone (ROCEPHIN) 2,000 mg/20 mL in sterile water (premix) 2,000 mg 1 06/17/2021 ioversoL (OPTIRAY 350) syrin ge syringe 100 mL 1 06/17/2021 QUEtiapine (SEROquel) tablet 25 mg 1 2021 metoprolol tartrate (LOPRESS OR) immediate release tablet 25 mg 3 06/16/2021 06/12/2021 metoprolol tartrate immediat e release capsule 12.5 mg 1 06/16/2021 chlorhexidine (PERIDEX) 0.12 % solution 15 mL 4 06/15/2021 06/13/2021 etomidate (AMIDATE) 2 mg/mL injection - ADS Override Pull 1 06/15/2021 fentaNYL (SUBLIMAZE) 50 mcg/ mL preservative free injection - ADS Override Pull 3 06/15/2021 metoprolol tartrate (LOPRESS OR) immediate release tablet 12.5 mg 1 06/15/2021 phenylephrine (CON-SYNEPHRIN E) 1 mg/10 mL (100 mcg/mL) in sodium chloride 0.9% (premix) - ADS Override Pull 1 06/15/2021 phenylephrine in 0.9% sodium chloride (CON-SYNEPHRINE) 25,000 mcg/250 mL (100 mcg/mL) infusion (premix) solution 1 06/15/2021 rocuronium (ZEMURON) 10 mg/m L injection - ADS Override Pull 1 06/15/2021 sodium chloride 0.9% 0.9% in fusion - ADS Override Pull 2 06/15/2021 sodium chloride 5% (HYPERTON IC) 5 % solution - ADS Override Pull 1 06/15/2021 furosemide (LASIX) 10 mg/mL injection 20 mg 1 06/14/2021 furosemide (LASIX) tablet 20 mg 1 gadoterate meglumine (DOTARE M) 0.5 mmol/mL injection 15 mL 1 06/14/2021 amiodarone (NEXTERONE) 150 m g/100 mL (1.5 mg/mL) in dextrose (premix) - ADS Override Pull 1 06/13/2021 amiodarone (NEXTERONE) 150 m g/100 mL (1.5 mg/mL) in dextrose (premix) 150 mg 1 06/13/2021 amiodarone (PACERONE) tablet 200 mg 1 06/13 amiodarone (PACERONE) tablet 400 mg 1 06/13 amiodarone in dextrose (NEXT ERONE) 360 mg/200 mL (1.8 mg/mL) infusion (premix) 4 06/13/2021 dexmedeTOMIDine in 0.9% sodi um chloride (PRECEDEX) 400 mcg/100 mL (4 mcg/mL) infusion (premix) 1 06/13/2021 Lactated Ringer's (LR) bolus 500 mL 2 06/1306/12/2021 levalbuterol (XOPENEX) 1.25 mg/3 mL nebulizer solution 1.25 mg 3 06/13/2021 06/12/2021 levETIRAcetam (KEPPRA) tablet 500 mg 2 11/202106/11/2021 polyvinyl alcohol-povidone ( REFRESH CLASSIC) 1.4-0.6 % ophthalmic solution 2 drop 1 06/13/2021 acetaminophen (TYLENOL) tablet 650 mg 2 10/202106/11/2021 artificial saliva (MOUTH MARINA E) spray 1 application 1 06/12/2021 artificial saliva (MOUTH MARINA E) spray 2 application 1 06/12/2021 folic acid (FOLVITE) tablet 1 mg 1 06/13/19 hydrALAZINE (APRESOLINE) injection 10 mg 1 06/12/2021 labetaloL (NORMODYNE,TRANDAT E) injection 10 mg 3 06/12/2021 levETIRAcetam (KEPPRA) 500 m g/100 mL in sodium chloride (premix) 500 mg 1 06/12/2021 pvuygmch-wln-zetijds glucona te (CENTRUM) 0.6 mg iron/mL oral liquid 15 mL 1 06/12/2021 pravastatin (PRAVACHOL) tablet 40 mg 2 10/202106/11/2021 thiamine (VITAMIN B-1) 250 m g in sodium chloride 0.9% 100 mL IVPB 1 06/12/2021 thiamine (VITAMIN B-1) 500 m g in sodium chloride 0.9% 100 mL IVPB 1 06/12/2021 bisacodyl EC (DULCOLAX EC) tablet 10 mg 1 0 06/11/2021 docusate sodium (COLACE) capsule 100 mg 1 0 06/11/2021 famotidine (PEPCID) 20 mg/10 mL in sterile water (premix) 20 mg 1 06/11/2021 LORazepam (ATIVAN) injection 1 mg 2 LORazepam (ATIVAN) injection 2 mg 2 022 LORazepam (ATIVAN) tablet 1 mg 2 06/11/2021 ondansetron (ZOFRAN) injection 4 mg 1 06/11 ondansetron ODT (ZOFRAN-ODT) disintegrating tablet 4 mg 1 06/11/2021 polyethylene glycol (MIRALAX) packet 17 g 1 06/11/2021 senna (SENOKOT) tablet 1 tablet 1 Lab Orders Without Results Count Last Ordered D ate First Ordered Date POCT GLUCOSE DEVICE 16 07/07/2021 06/13/19 MAGNESIUM 4 07/03/2021 06/14/2021 PHOSPHORUS 1 06/14/2021 HEMOGLOBIN A1C 1 06/12/2021 LIPID PANEL 1 06/12/2021 TSH REFLEX TO FREE T4 1 06/12/2021 Imaging Orders Without Results Count Last Order ed Date First Ordered Date PEP THERAPY/AIRWAY CLEARANCE 14 07/04/2021 06/29/2021 CHEST PHYSIO THERAPY 22 07/03/2021 022 INEXSUFFLATOR COUGH MACHINE 31 06/28/2021 06/12/2021 [...] COVID: Suspected 06/12/2021 06/12/2021 06/12/2021 8:35 PM SCALE MECHANIC documented as of this encounter Care Teams Drug Safety Assistant Relationship Specialty Start Date End Date Jean-Claude Salazar MD [address] [place] [address] PCP - General Family Medicine 04/12/20 06/12/22 Jean-Claude Salazar MD [address] [place] [address] Family Medicine 04/12/20 documented as of this encounter
--- OUTSIDE RECORDS SUMMARY | 2024-04-08 10:38 | XMS_ITS | Encounter Summary ---
Author Organization [facility] Address [address] [place] [address] Phone Care Team Providers Care Dough Puncher Name Role Phone Jean-Claude Crawford MD Primary Care Provider Reason for Referral * Diagnostic Imaging (Routine) - Closed Specialty Diagnoses / Procedures Referred By Contac t Referred To Contact Radiology Diagnoses Cholecystitis Procedures CT Abdomen Pelvis W Contrast CT Abdomen Pelvis W WO Contrast Eugene Gomez MD Phone: tel: fax: [address] [phone] Referral ID Status Reason Start Date Expiration Date Visits Re quested Visits Authorized [id number] Closed 03/30/2020 04/29/2021 1 1 [employer]G INTERNS[employer] Encounter Details Date Type Department Care Team (Late st Contact Info) Description 03/30/2020 Orders Only [facility] Surgery [address] [facility] [address]th [place] [address] [place] [id number] Eugene Gomez MD [id number] [place] [address] Cholecystitis (Primary Dx) Social History Tobacco Use Types Packs/Day Years Used Date Smoking Tobacco: Every Day Cigarettes Smokeless Tobacco: Never Alcohol Use Standard Drinks/Week Comments Yes 0 (1 standard drink = 0.6 oz pur e alcohol) limited Sex and Gender Information Value Date Recorded Sex Assigned at Not on file Legal Sex Male 9:10 PM [employer] INTERNS[employer] Gender Identity Not on file Sexual Orientation Not on file documented as of this encounter Plan of Treatment Not on file documented as of this encounter Results * CT Abdomen Pelvis W Contrast (06/13/2020 12:13 PM EDITING INTERNSHIP) Anatomical Region Laterality Modality Body N/A Computed Tomogra phy 06/13/2020 12:3 2 PM [employer] INTERNS[employer] Addenda Addendum by Stepan Scott MD on 07/26/2020 3:48 PM CDT ADDENDUM: To correct the title and technique of this exam, the exam performed was a CT of the abdomen and pelvis with intravenous contrast. ??The chest was not scanned. Electronically signed by: Stepan Scott M.D. Impressions 06/13/2020 12:32 PM [employer] INTERNSHIP 1. Interval decrease in size of an abscess extending from the gallbladder fossa the anterior abdominal wall. 2. Extensive colonic diverticulosis. Mild thickening of the right hemicolon may be related to chronic diverticulitis. 3. Small pleural and pericardial effusions. Electronically signed by: Stepan Scott M.D. Narrative 06/13/2020 12:32 PM [employer] EXAMINATION: ??Computed tomography of the chest, abdomen [...] IMG CT PROCEDURES Edited Result - Final documented in this encounter Visit Diagnoses Diagnosis Cholecystitis- Primary Cholecystitis, unspecified Cholecystitis Cholecystitis, unspecified documented in this encounter Additional Health Concerns Infection Onset Date Last Indicated Resolved Time MDR gram neg/ESBL Comment:06/16/2021 IP Review - Pt with scrotal abscess, but is not actively draining (last documented draining on 06/14). Pt remains intubated so requires trach aspirate for isolation discontinuation. Provider notified. Amanda Walker RN 12/19/2019 12/19/2019 documented as of this encounter Care Teams Dough Puncher Relationship Specialty Start Date End Date Jean-Claude Crawford MD [address] [facility] [address] [place] [id number] PCP - General Family Medicine 08/18/19 04/11/20 documented as of this encounter
--- OUTSIDE RECORDS SUMMARY | 2024-04-08 10:38 | XMS_ITS | Encounter Summary ---
Author Organization [facility] Healthcare Address [address] [place] [address] Care Team Providers Care Diamond Blender Name Role Phone Jean-Claude Crawford MD Primary Care Provider Jean-Claude Crawford MD Unavailable [phone] Encounter Details Date Type Department Care Team (Late st Contact Info) Description 07/13/2020 8:30 AM CDT - 07/13/2020 12:10 PM CDT Surgery [facility] Operating Room [address] [place] [address] Eugene Oates MD [address] [facility] [id number] [place] [address] CHOLECYSTECTOMY Surgery Details Date/Time Status Location OR Service Patient Class Case Class Case Type Trauma Case? 07/13/2020 8:30 AM Posted [facility] OR POD 5 226 Hepatobiliary Surgery Admit Time Sensitive - 3 Weeks Panel 1 Procedure LRB Anes Op Region Wound Class Comments CHOLECYSTECTOMY N/A General Abdomen Class II - Iam an Contaminated Surgeon Surgeon Role Service Panel Eugene Oates MD Primary Hepatobiliary 1 Josiane Magdaleno MD Resident - Assisting General Surgery 1 documented in this encounter Social History [...] file Legal Sex Male 9:10 PM [employer]OR [employer] Gender Identity Not on file Sexual Orientation Not on file documented as of this encounter Last Filed Vital Signs Vital Sign Reading Time Taken Comments Blood Pressure 175/115 07/13/2020 12:10 PM CDT Pulse 94 07/13/2020 12:10 PM CDT Temperature 36.1 ??C (97 ??F) 07/13/2020 10:30 AM CDT Respiratory Rate 14 07/13/2020 12:10 PM CDT Oxygen Saturation 93% 07/13/2020 12:10 PM CDT Inhaled Oxygen Concentration - - Weight - - Height - - Body Mass Index - - documented in this encounter Discharge Summaries * Tamiko Lovell MD - 07/16/2020 8:00 AM CDT Inpatient Discharge Summary BRIEF OVERVIEW Admitting Provider: Eugene Oates MD Discharge Provider: Eugene Oates MD Primary Care Physician at Discharge: Jean-Claude Crawford MD [phone] Admission Date: 07/13/2020 Discharge Date: 07/16/20 3 [...] follow-up involved. ??I spencer severalpictures and provided ?with literature and several websites to obtain more information (ACS, NCI, ASCO). ??After our discussion, decided to proceed with surgery. ??Informed consent was [...] office in 5-7 business days please call [phone] dry dressing over incision [...] Continue Incentive Spirometry throughout the day. * Breann will be removed in clinic. They will apply steri-strips over your incision(s) which will fall off on their own. You may remove the steri-strips after one week if they have not fallen off. Special Instructions ! Follow Up * DR. OATES will see you on SaturdayJuly 29 at 2:15pm in the [facility] - Medical Office Building 2[address] [place] [address](see map). Please call for questions or concerns. [...] HPB BW MOB2 OLIVIA 08/10/2020 10:00 AM [facility] ECHO (210) [facility] OP Card [facility] Main 08/10/2020 12:00 PM [facility] STRESS NUC 1 (210) [facility] OP Card [facility] Main 08/10/2020 12:15 PM [facility] STRESS NUC 1 (210) [facility] OP Card [facility] Main 08/10/2020 1:00 PM [facility] EVENT/MONITOR (210) [facility] OP Card [facility] Main 12/21/2020 1:30 PM Abiodun Novak MD BJbrandon [facility] MG Decent Cosigned by Euegne Oates MD at 07/17/2020 7:51 AM CDT [...] Continue Incentive Spirometry throughout the day. * Industry will be removed in clinic. They will apply steri-strips over your incision(s) which will fall off on their own. You may remove the steri-strips after one week if they have not fallen off. Special Instructions ! Follow Up * DR. OATES will see you on SaturdayJuly 29 at 2:15pm in the [facility] - Medical Office Building 2, [address] [facility], [place] [address](see map). Please call for questions or concerns. [...] CDT Hepatobiliary Surgery Daily Progress HPI: Mr. Jnaia Guajardo is a 70 y.o. year old [...] oral, BID - special, 500 mg at 07/16/20632 ??? folic acid (FOLVITE) tablet 1 mg, [...] precautions with patient and family member; ptwas KOBUK and legally blind but verbally demonstrated initial [...] bench) Prior Function Prior Function Level of Streeter: Independent with ADLs, Independent with homemaking with ambulation, Independent functional transfers, Independent with ambulation Lives With: Spouse Receives Help From: Spouse/Significant other(time clerk) Driving: No(Pt is legally blind and hasn't [...] and address after me: Brijesh Boss [address] [facility](Required 2 repititions) Without looking at the clock, tell me what time it is: Incorrect-within one hour Count aloud backwards from 20-1: 0 Errors Say the months of the year backwards in reverse order: 2 Errors(Pt unable to continue after September ) Repeat the name and address I asked you to remember: 0 Errors(Pt stated [facility] instead of [facility] ) Short Blessed Total Score: 7 6 [...] prior to discharge tomorrow - ambulate in [facility] LORI Wilson 111:27 AM * Naz Stoner - 07/14/2020 12:45 PM CDT Spiritual Care Note , 07/14/20 Camouflage AssemblerCurry Proctor. [phone] 07/14/20 1200 Time Spent Start Time 1157 Stop Time 1200 Time Calculation (min) 3 min Patient Spiritual Assessment Spirituality Assessed Focus of Care Clinical Encounter Type Visited With Patient Response Type Routine visit Routine Visit Introduction Reason for visit Support Outcomes and Interventions Outcomes Preserve dignity and respect;Demonstrating care and respect;Establish rapport and connectedness Interventions Offer spiritual/religion support * Sharmaine Hurtado OT - 07/14/2020 10:46 AM CDT Occupational Therapy 07/14/20 1045 General OT Missed Visit Reason Patient declined (despite max education on role of OT ) * Melvi Lopez MD - 07/14/2020 7:11 AM CDT B Surgery Daily Progress Note Jania Guajardo : [...] Signature: Melvi Lopez MD Cosigned by Eugene Oates MD at 07/14/2020 8:42 AM CDT * [...] 07/11/20699 - 07/11/20 18507/11/201899 - 07/12/20 0659 07/12/20 07 - 07/12/20 18507/12/20 190 - 07/13/20 0659 07/13/20 07 - 07/13/20 1859 07/13/20 190 - 07/13/20 2018 Closed/Suction/Open Drain 1 Right RUQ Other (Comment) [...] Eugene Oates MD - 06/13/2020 1:45 PM [employer] Images from the original note were not included. Eugene Oates M.D., F.A.C.S. Chief, Section of Surgical Oncology weed sprayer [facility] The [facility] [employer] - voice - fax [facility] Mailing Address: Overnight Mailing Address: [address] [place] [address] [facility], [address] [place], [place] [address] [place], [place] [address] FOLLOW-UP EVALUATION DATE OF VISIT: 06/13/20 REASON [...] wall abscess. ?? The patient initially??presented to [facility]in July, with acute cholecystitis. During evaluation at [...] pericholecystic fluid. Mr. Guajardo was discharged to [facility] and I saw him in follow-up in [...] file for drug use. ??? Lives in [place] [address]. Employed as retired. No limitations on activity. He is able to ambulate without difficulty and can walk up 0 flights of stairs before becoming short of breath. ??? The patient is accompanied today by his FAMILY HISTORY: Mr. Guajardo's family history includes Lung cancer in his father.. Of note, there is no family history of mlgcdo-mcyyknskr-ienoasz disease or cancer. REVIEW OF SYSTEMS: The [...] M.D., F.A.C.S. Chief, Section of Surgical Oncology weed sprayer CC: Patient Care Team: Jean-Claude Crawford MD as PCP - General (Family Medicine) Jean-Claude Crawford MD (Family Medicine) Sanforizer completed by [employer]. Sanforizer variances may occur. [employer] documented in this encounter Consult Notes * Zhao Zapien, ASHLEY - 07/14/2020 5:42 PM CDTAssociated Order(s): IP CONSULT TO NUTRITION SERVICES Nutrition Assessment Reason for Assessment: Initial Nutrition Assessment and Consult/Referral Encounter Date: 07/14/20 5:42 PM Patient is a 70 y.o. male with chief complaint of cholecystits. LOS is 1 days. HPI: Mr.??Jania A Sale??is a 69 y.o.??w/ a h/o acute cholecystitis [...] 87.5 kg (193 lb) Height: 180.3 cm ( 11 ) Estimated Protein Needs Type of Weight Used for Estimated Protein : [place] Protein Needs Based on g/k.3 Total Protein [...] Assessment: Intake/Output Summary (Last 24 hours) at 07/14/20201741 Last data filed at 07/14/2020 1236 Gross [...] Clear - Apple Select Supplement: VARY/multiple Flavor 07/14/20174107/14/20 0759 Adult Diet Regular Diet effective now Question: ([facility]) Diet type Answer: Regular 07/14/20 8177 Impression: Pt reports good appetite prior to [...] intake, Labs Zhao Zapien RD LD CDE [phone]. Weekends [phone] documented in this encounter Nursing Notes * [...] placed a call to the Pt at [phone] for initial interview completion, there was no [...] placed a call to the pt at [phone] for initial interview completion, there was no [...] Understanding of discharge needs will improve 07/13/2020 232 by Josefina Jacob RN Outcome: Progressing 07/13/2020 232 by Josefina Jacob RN Outcome: Progressing Problem: Lack of Knowledge: Goal: Ability to state ways to decrease the risk of falls will improve 07/13/2020 2324 by Josefina Jacob RN Outcome: Progressing 07/13/2020 2323 by Josefina Jacob RN Outcome: Progressing Problem: Safety: Goal: Will remain free from falls 07/13/2020 2324 by Josefina Jacob RN Outcome: Progressing 07/13/2020 232 by Josefina Jacob RN Outcome: Progressing Goal: [...] by Josefina Jacob RN Outcome: Progressing 07/13/2020 232 by Josefina Jacob RN Outcome: Progressing Problem: Nutritional: Goal: Nutritional status will be supported 07/13/2020 2324 by Josefina Jacob RN Outcome: Progressing 07/13/2020 232 by Josefina Jacob RN Outcome: Progressing Problem: Fluid Volume: Goal: Maintenance of adequate hydration will improve 07/13/2020 2324 by Josefina Jacob RN Outcome: Progressing 07/13/2020 2323 by Josefina Jacob RN Outcome: Progressing Problem: Health Behavior: Goal: Ability to state signs and symptoms to report to health care provider will improve 07/13/2020 2324 by Josefina Jacob RN Outcome: Progressing 07/13/2020 232 by Josefina Jacob RN Outcome: Progressing Problem: [...] RN - 07/13/2020 7:31 PM CDT Hospitalist MD at bedside for pt assessment. Pt tachycardic, a fib on monitor. MD will order home metoprolol for pt. See MAR. * Perioperative Nursing Note - Tesha Benedict RN - 07/13/2020 10:55 AM CDT Belongings retrieved from locker #30, sealed, and placed on bed. * Op Note - Eugene Oates MD - 07/13/2020 9:03 AM CDT Images from the original note were not included. OPERATIVE NOTE PRE-OPERATIVE DIAGNOSIS: Cholecystocutaneous fistula, chronic cholecystitis, intraabdominal abscess, cholelithiasis. POST-OPERATIVE DIAGNOSIS: Cholecystocutaneous fistula, chronic cholecystitis, intraabdominal abscess, cholelithiasis. SURGEON: Eugene Oates M.D. FIRST PARKING GARAGE MANAGER: Josiane Magdaleno M.D. ANESTHESIA: General endotracheal. NAME [...] and draining the abscess cavity. A 19 [place] DAVEY drain was left through a separate [...] M.D., F.A.C.S. Chief, Section of Surgical Oncology [facility] [employer] - voice - fax [employer] Mailing Address: Overnight Mailing Address: [address] [place] [address] [facility], [address] [place], [place] [address] [place], [place] [address] documented in this encounter Plan of Treatment [...] Results * Phosphorus (07/14/2020 10:05 PM CDT) Pathologist [facility] Phosphorus, pl 2.8 2.3 - 4.5 mg/dL [facility] Blood specimen (specimen) 07/14/2020 10:05 PM CDT 07/14/2020 11:32 PM CDT Stephany SANDOVAL LAB BLOOD ORDERABLES Mariangel l Result Performing Organization Address City/[facility] Co de Phone Number [facility] [place] [address] * Magnesium (07/14/2020 10:05 PM CDT) [facility] Magnesium 1.7 1.4 - 2.5 mg/dL [facility] Blood specimen (specimen) 07/14/2020 10:05 PM CDT 07/14/2020 11:32 PM CDT Stephany SANDOVAL LAB BLOOD ORDERABLES Mariangel l Result Performing Organization Address [facility] de Phone Number [facility] [place] [employer] [place] [address] * (ABNORMAL) Comprehensive metabolic panel (07/14/2020 10:05 PM CDT) [facility] Sodium 136 135 - 145 mmol/L [facility] Potassium, pl 3.8 3.3 - 4.9 mmol/L [facility] Chloride 102 97 - 110 mmol/L [facility] CO2 26 22 - 32 mmol/L [facility] Anion gap 8 2 - 15 mmol/L [facility] BUN 12 8 - 25 mg/dL [facility] Creatinine 0.79(L) 0.80 - 1.30 mg/dL [facility] Glucose 121 70 - 199 mg/dL [facility] Comment: Interpretive Data Fasting glucose >/= [...] 2017. Calcium 9.2 8.5 - 10.3 mg/dL [facility] Bilirubin, total 0.6 0.1 - 1.2 mg/dL [facility] Protein, pl 6.0(L) 6.5 - 8.5 g/dL [facility] Albumin 3.4(L) 3.5 - 5.0 g/dL [facility] Alk phos 91 40 - 130 Units/L [facility] ALT 14 7 - 55 Units/L [facility] AST 23 10 - 50 Units/L [facility] Blood specimen (specimen) 07/14/2020 10:05 PM CDT 07/14/2020 11:32 PM CDT Stephany SANDOVAL LAB BLOOD ORDERABLES Mariangel clifford Result [facility] Department [place] [address] * (ABNORMAL) CBC without differential (07/14/2020 10:05 PM CDT) WBC 9.2 3.8 - 9.9 K/cumm [facility] Hgb 12.6(L) 13.0 - 17.5 g/dL [facility] Hct 36.5(L) 38.9 - 50.3 % [facility] Plt 141(L) 150 - 400 K/cumm [facility] Comment:No clot detected in sample. MPV 11.4 9.1 - 12.3 fL [facility] RBC 3.75(L) 4.30 - 5.80 M/cumm [facility] MCV 97.3(H) 81.3 - 96.4 fL [facility] MCH 33.6(H) 27.1 - 33.3 pg [facility] MCHC 34.5 32.3 - 35.7 g/dL [facility] RDW CV 14.2 11.1 - 14.9 % [facility] RDW SD 51.0(H) 35.7 - 48.1 fL [facility] NRBC abs 0.00 0.00 - 0.01 K/cumm [facility] Blood specimen (specimen) 07/14/2020 10:05 PM CDT 07/14/2020 11:29 PM CDT us Stephany SANDOVAL LAB BLOOD ORDERABLES Mariangel clifford Result [facility] Department [place] [address] * (ABNORMAL) Differential, auto (07/14/2020 6:13 AM CDT) Neutrophil abs 7.9(H) 1.7 - 6.5 K/cumm [facility] Imm gran abs 0.0 0.0 - 0.1 K/cumm [facility] Lymphocyte abs 1.5 0.8 - 3.3 K/cumm [facility] Monocyte abs 0.6 0.2 - 0.8 K/cumm [facility] Eosinophil abs 0.0 0.0 - 0.5 K/cumm [facility] Basophil abs 0.0 0.0 - 0.1 K/cumm [facility] Neutrophil pct 79.2 % [facility] Comment: Interpretive Data Percent cell count reference ranges are not reported, since discordance with absolute values may lead to misinterpretation of CBC data. Current Interpretive Data was last revised on 2017. Imm gran pct 0.3 % [facility] Comment: Interpretive Data Percent cell count reference ranges are not reported, since discordance with absolute values may lead to misinterpretation of CBC data. Current Interpretive Data was last revised on 2017. Lymphocyte pct 14.5 % [facility] Comment: Interpretive Data Percent cell count reference ranges are not reported, since discordance with absolute values may lead to misinterpretation of CBC data. Current Interpretive Data was last revised on 2017. Monocyte pct 5.7 % [facility] Comment: Interpretive Data Percent cell count reference ranges are not reported, since discordance with absolute values may lead to misinterpretation of CBC data. Current Interpretive Data was last revised on 2017. Eosinophil pct 0.1 % [facility] Comment: Interpretive Data Percent cell count reference ranges are not reported, since discordance with absolute values may lead to misinterpretation of CBC data. Current Interpretive Data was last revised on 2017. Basophil pct 0.2 % [facility] Comment: Interpretive Data Percent cell count reference ranges are not reported, since discordance with absolute values may lead to misinterpretation of CBC data. Current Interpretive Data was last revised on 2017. Blood specimen (specimen) 07/14/2020 6:13 AM CDT 07/14/2020 7:43 AM CDT Eugene Oates MD LAB BLOOD ORDERABLES Fin al Result Performing Organization Address City/[facility] Co de Phone Number [facility] Department [place] [address] * Phosphorus (07/14/2020 6:13 AM CDT) Phosphorus, pl 3.9 2.3 - 4.5 mg/dL [facility] Blood specimen (specimen) 07/14/2020 6:13 AM CDT 07/14/2020 7:43 AM CDT Eugene Oates MD LAB BLOOD ORDERABLES Fin al Result [facility] Department [place] [address] * Magnesium (07/14/2020 6:13 AM CDT) Magnesium 1.8 1.4 - 2.5 mg/dL [facility] Blood specimen (specimen) 07/14/2020 6:13 AM CDT 07/14/2020 7:43 AM CDT Eugene Oates MD LAB BLOOD ORDERABLES Fin al Result Performing Organization Address [facility] Co de Phone Number [facility] Department [place] [address] * (ABNORMAL) CBC with auto differential (07/14/2020 6:13 AM CDT) Pathologist [facility] WBC 10.0(H) 3.8 - 9.9 K/cumm [facility] Hgb 13.7 13.0 - 17.5 g/dL [facility] Hct 39.3 38.9 - 50.3 % [facility] Plt 148(L) 150 - 400 K/cumm [facility] MPV 11.4 9.1 - 12.3 fL [facility] RBC 4.08(L) 4.30 - 5.80 M/cumm [facility] MCV 96.3 81.3 - 96.4 fL [facility] MCH 33.6(H) 27.1 - 33.3 pg [facility] MCHC 34.9 32.3 - 35.7 g/dL [facility] RDW CV 14.3 11.1 - 14.9 % [facility] RDW SD 50.4(H) 35.7 - 48.1 fL [facility] NRBC abs 0.00 0.00 - 0.01 K/cumm [facility] Blood specimen (specimen) 07/14/2020 6:13 AM CDT 07/14/2020 7:43 AM CDT us Eugene Oates MD LAB BLOOD ORDERABLES Fin al Result Performing Organization Address City/[facility]/ZIP Co de Phone Number [facility] Department [place] [address] * (ABNORMAL) Comprehensive metabolic panel (07/14/2020 6:13 AM CDT) Pathologist [facility] Sodium 139 135 - 145 mmol/L [facility] Potassium, pl 4.0 3.3 - 4.9 mmol/L [facility] Chloride 107 97 - 110 mmol/L [facility] CO2 28 22 - 32 mmol/L [facility] Anion gap 4 2 - 15 mmol/L [facility] BUN 13 8 - 25 mg/dL [facility] Creatinine 0.77(L) 0.80 - 1.30 mg/dL [facility] Glucose 105 70 - 199 mg/dL [facility] Comment: Interpretive Data Fasting glucose >/= [...] 2017. Calcium 9.0 8.5 - 10.3 mg/dL [facility] Bilirubin, total 0.5 0.1 - 1.2 mg/dL [facility] Protein, pl 5.6(L) 6.5 - 8.5 g/dL [facility] Albumin 3.1(L) 3.5 - 5.0 g/dL [facility] Alk phos 88 40 - 130 Units/L [facility] ALT 9 7 - 55 Units/L [facility] AST 17 10 - 50 Units/L [facility] Blood specimen (specimen) 07/14/2020 6:13 AM CDT 07/14/2020 7:43 AM CDT us Eugene Oates MD LAB BLOOD ORDERABLES Fin al Result [facility] [place] [address] * Check Sample (07/13/2020 11:00 AM CDT) ABO Rh O Positive [facility] HCLL OTHER 07/13/2020 11:0 0 AM CDT 07/13/2020 11:39 AM CDT Eugene Oates MD LAB BLOOD ORDERABLES Fin al Result [facility] Department [place] [address] * Surgical pathology (07/13/2020 9:38 AM CDT) Tissue (Gallbladder) 07/13/2020 9:38 AM CDT Narrative PATHOLOGY [facility] - 07/14/2020 6:18 PM CDT EPIC results best viewed via link to PDF [facility] Zaria Chapman Laboratory [place] [address] SURGICAL PATHOLOGY REPORT FINAL Patient Name: ?? JANIA GUAJARDO Gender: ??M : ??1950 (Age: 70) Address: ??[address] [place] [address] ??[id number] Hospital #: ??[id number] Taken:07/13/2020 Received:07/13/2020 Reported: 07/14/2020 Patient Type: [facility] Inpatient ?? Service: Surgery Location: [place] [address] Physician(s): ??Chelsea Vickers M.D. Ina Chen, M.D. [...] tissue and stones. mr2/07/13/2020 14:28 PA(s): Guillermina Avalos MS, PA ([facility]) By this signature, I attest that the above diagnosis is based upon my personal examination of the slides(and/or other material). Addenda/Procedures The performance characteristics of some immunohistochemical stains, fluorescence in-situ hybridization tests and immunophenotyping by flow cytometry cited in this report (if any) were determined by the Surgical Pathology Department at [facility] as part of an ongoing manager quality improvement program and in compliance with federally mandated [...] determined by the Surgical Pathology Department of [facility]. ??It has not been cleared or approved by the U. S. Food and Drug Administration. IMAGES AND SCANNED DOCUMENTS, IF INCLUDED, ONLY VIEWABLE IN PDF VERSION OF REPORT Eugene Oates MD LAB PATHOLOGY ORDERABLES Final Result PATHOLOGY [facility] 3rd Floor [place], [place] [phone] * Mycology (fungal) culture and stain Abscess Abdominal (07/13/2020 9:09 AM CDT) Direct Specimen Exam Stain: No Fungal elements seen. [facility] Report Final Report: No growth of fungus [facility] Abscess (Abdominal) 07/13/2020 9:09 AM CDT 07/13/2020 11:27 AM CDT [facility]ative [facility] - 08/10/2020 11:08 AM CDT Testing performed by [facility] Microbiology Laboratory ([phone]). Eugene Oates MD LAB MICROBIOLOGY - GENER AL ORDERABLES Final Result Performing Organization Address [facility] de Phone Number [facility] Department [place] [address] * Aerobic and anaerobic culture and gram stain Abscess Abdominal (07/13/2020 9:09 AM CDT) Direct Specimen Exam Stain: No polymorphonuclear leukocytes seen. No organisms seen. [facility] Report Final Report: No growth [facility] [facility] Abscess (Abdominal) 07/13/2020 9:09 AM CDT 07/13/2020 11:27 AM CDT Narrative [facility] - 07/16/2020 10:59 AM CDT Testing performed by [facility] Microbiology Laboratory [phone]) Specimens submitted from normally sterile body sites [...] interpretive data was last revised on 2019. Eugene Oates MD LAB MICROBIOLOGY - GENER AL ORDERABLES Final Result Performing Organization Address City/[facility] Co de Phone Number [facility] [place] [employer] [place] [address] * POCT glucose (07/13/2020 8:09 AM CDT) Glucose, POC 98 70 - 199 mg/dL [facility] Blood specimen (specimen) 07/13/2020 8:09 AM CDT 07/13/2020 8:09 AM CDT Result [facility] Eugene Oates MD LAB POCT ORDERABLES - DE VICE Final Result Performing Organization Address [facility] de Phone Number [facility] [employer] [place] [address] * Protime-INR (07/13/2020 8:09 AM CDT) Pathologist [facility] PT 12.3 9.5 - 13.6 sec [facility] INR 1.1 0.9 - 1.2 [facility] Comment: Interpretive data Oral anticoagulant therapeutic [...] ORDERA BLES Final Result Performing Organization Address [facility] Co de Phone Number [facility] [employer] [place] [address] * Type and screen (07/13/2020 8:00 AM CDT) ABO Rh O Positive [facility] Nancy, indirect Negative [facility] Blood specimen (specimen) 07/13/2020 8:00 AM CDT 07/13/2020 8:21 AM CDT Narrative [facility] - 07/13/2020 9:39 AM CDT Has the patient had Daratumumab or Isatuximab in the past 6 months?->Unknown us Jimmie Cordero MD PhD LAB BLOOD BANK T EST ORDERABLES Final Result [facility] [place] [address] documented in this encounter Visit Diagnoses Diagnosis Acute cholecystitis Acute cholecystitis Acute cholecystitis documented in this encounter Admitting [...] Given 07/15/2020 6:50 PM CDT 1,000 mg apixaban (ELIQUIS) tablet 5 mg 5 [...] Given 07/15/2020 12:35 PM CDT 5 mg bupivacaine (MARCAINE) 0.5 % (5 mg/mL) preservative free injection As needed, Starting on Sat07/13/20 at 1002, Intra-Op Given 07/13/2020 10:02 AM CDT 30 mL Surgical Site ciprofloxacin (CIPRO) tablet 500 mg 500 mg, [...] buffered meds such as didanosine., Indications: Abdominal/Pelvic InfectionIndications:Abdominal/Pe lvic Infection Given 07/16/2020 6:33 AM CDT 500 [...] Given 07/14/2020 9:20 AM CDT 1 mg gentamicin (GARAMYCIN) 480 mg in sodium chloride 0.9% 1,000 mL irrigation solution irrigation, Once, On Sat07/13/20 at 0945, For 1 dose, Intra-Op Given 07/13/2020 9:37 AM CDT 1,000 mL Surgical Site levalbuterol (XOPENEX) 1.25 mg/3 mL nebulizer solution 1.25 mg 1.25 mg, nebulization, Every 4 hours PRN (occupational therapist's assistant), shortness of breath, Starting on Sat07/14/20 at 0724 Given 07/14/2020 10:27 AM CDT 1.25 mg lisinopriL (PRINIVIL,ZESTRIL) tablet 20 mg 20 mg, oral, Daily, First dose on Sat07/15/20 at 1215 Given 07/16/2020 8:59 AM CDT 20 mg Given 07/15/2020 12:35 PM CDT 20 mg metoprolol tartrate (LOPRESSOR) immediate release tablet [...] Given 07/15/2020 4:10 PM CDT [address] (PROTONIX) extended release tablet 40 mg 40 mg, oral, Every morning, First dose on Sat07/14/20 at 0900, Do not crush, chew, cut, dissolve, open or otherwise manipulate tablet/capsule., Indications: Stress Ulcer ProphylaxisIndications:Stress Ulcer Prophylaxis Given 07/16/2020 8:59 AM CDT 40 mg Given 07/15/2020 8:08 AM CDT 40 mg Given 07/14/2020 9:20 AM CDT 40 mg ramelteon (ROZEREM) tablet [...] Given 07/15/2020 8:08 AM CDT 1 tablet sodium chloride 0.9% irrigation As needed, Starting on Sat07/13/20 at 0929, Intra-Op Given 07/13/2020 9:29 AM CDT 2,000 mL Surgical Site sterile water irrigation As needed, Starting on Sat07/13/20 at 0929, Intra-Op Given 07/13/2020 9:29 AM CDT 1,000 mL Other (Comment) terazosin (HYTRIN) capsule 10 [...] 2000, Phase I & Post-op Floor, Indications: Pain 0101 (Given - Provider: Josefina Jacob RN)1054 (Given - Provider: Janna Guido RN)1951 (Not Given - Provider: Kodak Gonzalez RN - Reason: Other)2222 (Given - Provider: Libby Snowden RN) 0456 (Not Given - Provider: Libby Snowden RN - Reason: Patient/family refused)1057 (Given - Provider: Rush Pearson RN)1850 (Given - Provider: Rush Pearson RN)2245 (Given - Provider: Mercedez Zafar RN) 0633 (Given - Provider: Mercedez Zafar RN)1100 (Due - Provider: Emerita Casper [facility]) albuterol 2.5 mg/0.5 mL nebulizer solution 2.5 mg (CANCELED) 2.5 mg, nebulization, Every 6 hours (occupational therapist's assistant), First dose on Sat07/14/20 at 1800 1710 (Given - Provider: Brittany Guaman, GEOSCIENCE PROFESSOR) albuterol 2.5 mg/0.5 mL nebulizer solution 2.5 mg (CANCELED) 2.5 mg, nebulization, Every 4 hours (occupational therapist's assistant), First dose (after last modification) on Sat07/14/20 at 2000 2043 (Given - Provider: Pacheco Singleton RRT) 0022 (Given - Provider: Pacheco Singleton RRT)0400 (Due)0846 (Given - Provider: Deepthi Villeda RRT)1208 (Given - Provider: Deepthi Villeda RRT)1718 (Given - Provider: Deepthi Villeda RRT) albuterol 2.5 mg/0.5 mL nebulizer solution 2.5 mg (CANCELED)(Linked Group 1) 2.5 mg, nebulization, 4 times daily (occupational therapist's assistant), First dose (after last modification) on Sat07/15/20 at 2000 1933 (Given - Provider: Pacheco Singleton RRT) 0830 (Given - Provider: Karlee Goins RRT) apixaban (ELIQUIS) tablet 5 mg 5 mg, oral, Every 12 hours scheduled, First dose on Sat07/15/20 at 1215, Nurse to discontinue heparin infusion order and associated bolus at first administration of apixaban using ? order condition met? order source, Indications: atrial fibrillation 1235 (Given - Provider: Rush Pearson, GAURAV)2101 (Given - Provider: Mercedez Zafar RN) 0859 [...] Abdominal/Pelvic Infection 0600 (Given - Provider: Josefina Jacob, GAURAV)1954 (Given - Provider: Kodak Gonzalez RN) 050 (Given - Provider: Libby Snowden RN)185 (Given - Provider: Rush Pearson, GAURAV) 0633 (Given - Provider: Mercedez Zafar, GAURAV) folic acid (FOLVITE) tablet 1 mg 1 mg, oral, Every morning, First dose on Zoe 07/14/20 at 0900, Indications: Folate Deficiency 0920 (Given - Provider: Janna Guido RN) 0808 (Given - Provider: Rush Pearson, GAURAV) 0859 (Given - Provider: Rush Pearson RN) heparin 5,000 unit/mL injection 5,000 Units (CANCELED) 5,000 Units, subcutaneous, Every 8 hours scheduled, First dose on Zoe 07/14/20 at 0630, Indications: Deep Vein Thrombosis Prevention 0600 (Given - Provider: Josefina Jacob RN)1950 (Not Given - Provider: Kodak Gonzalez RN - Reason: Other)2019 (Given - Provider: Libby Snowden RN) 050 (Given - Provider: Libby Snowden RN) ipratropium (ATROVENT) 0.02 % nebulizer solution 0.5 mg (CANCELED) 0.5 mg, nebulization, Every 6 hours while awake (occupational therapist's assistant), First dose on Zoe 07/14/20 at 1800 1710 (Given - Provider: Brittany Guaman RRT) ipratropium (ATROVENT) 0.02 % nebulizer solution 0.5 mg (CANCELED) 0.5 mg, nebulization, Every 4 hours (occupational therapist's assistant), First dose (after last modification) on Zoe 07/14/20 at 2000 2043 (Given - Provider: Pacheco Singleton RRT) 0022 (Given - Provider: Pacheco Singleton BUNNY)0400 (Due)0847 (Given - Provider: Deepthi Villeda, BUNNY)1209 (Given - Provider: Deepthi Villeda, GEOSCIENCE PROFESSOR)1718 (Given - Provider: Deepthi Villeda, GEOSCIENCE PROFESSOR) ipratropium (ATROVENT) 0.02 % nebulizer solution 0.5 mg (CANCELED)(Linked Group 1) 0.5 mg, nebulization, 4 times daily (occupational therapist's assistant), First dose (after last modification) on Sat07/15/20 at 2000 1933 (Given - Provider: Pacheco Singleton, GEOSCIENCE PROFESSOR) 0830 (Given - Provider: Karlee Goins, BUNNY) lisinopriL (PRINIVIL,ZESTRIL) tablet 20 mg 20 mg, [...] 1 dose 0311 (Given - Provider: Josefina Jacob RN) metoprolol tartrate (LOPRESSOR) immediate release tablet 25 mg 25 mg, oral, 2 times daily, First dose on Sat07/14/20 at 0900 0921 (Given - Provider: Janna Guido, GAURAV)2032 (Given - Provider: Libby Snowden RN) 0808 (Given - Provider: Rush Pearson, GAURAV)2100 (Given - Provider: Mercedez Zafar RN) 0859 (Given - Provider: Rush Pearson, GAURAV) metroNIDAZOLE (FLAGYL) tablet 500 mg 500 mg, oral, 3 times daily, First dose on Sat07/14/20 at 0900, For 15 doses, Indications: Abdominal/Pelvic Infection 0921 (Given - Provider: Janna Guido RN)1950 (Not Given - Provider: Kodak Gonzalez RN - Reason: Other)2018 (Given - Provider: Libby Snowden RN) 08 (Given - Provider: Rush Pearson, GAURAV)161 (Given - Provider: Rush Pearson, GAURAV)2099 (Given - Provider: Mercedez Zafar, GAURAV) 0859 (Given - Provider: Rush Pearson RN) pantoprazole DR (PROTONIX) extended release tablet 40 mg 40 mg, oral, Every morning, First dose on Sat07/14/20 at 0900, Do not crush, chew, cut, dissolve, open or otherwise manipulate tablet/capsule., Indications: Stress Ulcer Prophylaxis 0920 (Given - Provider: Janna Guido RN) 08 (Given - Provider: Rush Pearson, GAURAV) 0859 (Given - Provider: Rush Pearson [...] at 0900 0808 (Given - Provider: Rush Pearson RN)214 (Not Given - Provider: Mercedez Zafar, GAURAV - Reason: Patient/family refused) 0859 (Given - Provider: Rush Pearson RN) terazosin (HYTRIN) capsule 10 mg 10 mg, oral, Nightly, First dose on Sat07/14/20 at 2099 2018 (Given - Provider: Libby Snowden RN) 2100 (Given - Provider: Mercedez Zafar, GAURAV) thiamine (VITAMIN B1) tablet 100 mg 100 mg, oral, Every morning, First dose on Sat07/14/20 at 0900, Indications: Thiamine Deficiency 0920 (Given - Provider: Janna Y. Guido, RN) 0808 (Given - Provider: Rush Pearson, [...] 1.25 mg, nebulization, Every 4 hours PRN (occupational therapist's assistant), shortness of breath, Starting on Sat07/14/20 at 0724 1027 (Given - Provider: Brittany Guaman, GEOSCIENCE PROFESSOR) metoprolol (LOPRESSOR) injection 5 mg (CANCELED) 5 [...] hours PRN, nausea, vomiting, Starting on Zoe 07/14/20 at 0550, Indications: Prevention of Nausea and Vomiting oxyCODONE (ROXICODONE) tablet 5 mg (CANCELED) 5 mg, oral, Every 4 hours PRN, 1st line for pain, Starting on Zoe 07/14/20 at 0550, Indications: Pain 1054 (Given - Provider: Janna Guido, GAURAV) oxyCODONE (ROXICODONE) tablet 5 mg (CANCELED) 5 [...] med 2.5 mg, nebulization, 4 times daily (occupational therapist's assistant), First dose (after last modification) on Sat07/15/20 at 2000 And ipratropium (ATROVENT) 0.02 % nebulizer solution 0.5 mg (CANCELED)Jump to med 0.5 mg, nebulization, 4 times daily (occupational therapist's assistant), First dose (after last modification) on Sat07/15/20 at 2000 documented in this encounter Orders Medications Ordered That Bimal ht Not Have Been Administered Count Last Ordered Date First Ordered Date albuterol 2.5 mg/0.5 mL nebu lizer solution 2.5 mg 3 07/15/2020 07/14/2020 apixaban (ELIQUIS) tablet 5 mg 1 07/15/2020 ipratropium (ATROVENT) 0.02 % nebulizer solution 0.5 mg 3 07/15/2020 07/14/2020 lisinopriL (PRINIVIL,ZESTRIL) tablet 20 mg 1 07/15/2020 magnesium oxide (MAG-OX) tablet 800 mg 1 potassium chloride (KLOR-CON ) packet 20 mEq 1 07/15/2020 senna-docusate (PERICOLACE) 8.6-50 mg per tablet 1 tablet 1 07/15/2020 ciprofloxacin (CIPRO) tablet 500 mg 1 07/14 folic acid (FOLVITE) tablet 1 mg 1 04/08/20 21 heparin 5,000 unit/mL inject ion 5,000 Units 2 07/14/2020 07/13/2020 levalbuterol (XOPENEX) 1.25 mg/3 mL nebulizer solution 1.25 mg 2 07/14/2020 metoprolol (LOPRESSOR) injection 10 mg 1 metoprolol (LOPRESSOR) injection 5 mg 3 11/202007/13/2020 metoprolol tartrate (LOPRESS OR) immediate release tablet 25 mg 1 07/14/2020 metroNIDAZOLE (FLAGYL) tablet 500 mg 1 11/2020 ondansetron (ZOFRAN) injection 4 mg 1 07/14 oxyCODONE (ROXICODONE) tablet 5 mg 3 202007/13/[address] (PROTONIX) e xtended release tablet 40 mg 1 07/14/2020 ramelteon (ROZEREM) tablet 8 mg 1 terazosin (HYTRIN) capsule 10 mg 1 07/15/19 21 thiamine (VITAMIN B1) tablet 100 mg 1 07/14 traMADoL (ULTRAM) tablet 50 mg 1 07/14/2020 acetaminophen (TYLENOL) tablet 1,000 mg 2 0 07/13/2020 ceFAZolin (ANCEF) 2,000 mg/2 0 mL in sterile water (premix) 2,000 mg 1 07/13/2020 fentaNYL (SUBLIMAZE) preserv ative free injection 50 mcg 2 07/13/2020 gabapentin (NEURONTIN) capsule 300 mg 1 10/2020 HYDROmorphone (DILAUDID) injection 0.4 mg 1 07/13/2020 Lactated Ringer's (LR) infusion 3 naloxone (NARCAN) 0.4 mg/mL injection 0.04-0.4 mg 1 07/13/2020 prochlorperazine (COMPAZINE) injection 10 mg 1 07/13/2020 sodium chloride 0.9% flush 0.5-20 mL 6 10/2020 Nursing Count Last Ordered Date First Orde red Date DISCHARGE INSTRUCTIONS 2 07/16/2020 Consult Count Last Ordered Date First Orde red Date IP CONSULT TO NUTRITION SERVICES 1 07/15/19 21 IP CONSULT TO SPIRITUAL CARE 1 07/14/2020 [...] documented as of this encounter Care Teams Diamond Blender Relationship Specialty Start Date End Date Jean-Claude Crawford MD [address] [place] [address] PCP - General Family Medicine 04/12/20 06/12/22 Jean-Claude Crawford MD [address] [place] [address] Family Medicine 04/12/20 documented as of this encounter
--- OUTSIDE RECORDS SUMMARY | 2024-04-08 10:38 | XMS_ITS | Encounter Summary ---
Author Organization [facility] Address [address] [place] [address] Phone Care Team Providers Care Gynaecological Oncologist Name Role Phone Jean-Claude Crawford MD Primary Care Provider Jean-Claude Crawford MD Unavailable [phone] Encounter Details Date Type Department Care Team (Late st Contact Info) Description 08/05/2020 Orders Only [facility] Surgery [address] [place] [address] Bre Busch, LORI [address] [facility] [facility] [address] [place] [address] Social History Tobacco Use Types Packs/Day Years [...] on file 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
--- OUTSIDE RECORDS SUMMARY | 2024-04-08 10:38 | XMS_ITS | Encounter Summary ---
Author Organization [facility] Address [address] [place] [address] Phone Care Team Providers Care Aerospace Assembler Name Role Phone Jean-Claude Crawford MD Primary Care Provider Jean-Claude Crawford MD Unavailable [phone] Encounter Details Date Type Department Care Team (Late st Contact Info) Description 06/14/2021 3:10 PM CUSTOMER RETENTION SPECIALIST Ancillary Procedure [facility] Vascular Lab IP [address] [place] [phone] Social History Tobacco Use Types Packs/Day Years [...] file Legal Sex Male 9:10 PM CUSTOMER RETENTION SPECIALIST Gender Identity Not on file Sexual Orientation Not on file documented as of this encounter Plan of Treatment Not on file documented as of this encounter Procedures Procedure Name Priority Date/Time Associated Diagnosis Comments US VEIN DUPLEX LOWER EXTREMITY BILATERAL COMPLETE IP Routine 06/14/2021 5:35 PM CUSTOMER RETENTION SPECIALIST documented in this encounter Results * US Vein Duplex Lower Extremity Bilateral Complete (06/14/2021 5:35 PM CUSTOMER RETENTION SPECIALIST) Anatomical Region Laterality Modality Vascular Bilateral Ultrasound 06/14/2021 5:14 PM CUSTOMER RETENTION SPECIALIST Narrative 06/14/2021 7:12 PM CUSTOMER RETENTION SPECIALIST [facility] - Department of Vascular Surgery, Vascular Laboratory [address] [place] [address] Lower Extremity Venous Ultrasound Report Patient Name: JANIA GUAJARDO : 1950 (71y ) Study Date: 06/14/2021 5:14:06 PM Gender: M Tech: Location: [id number] Ref.Provider: CASSIE MARRUFO Quality: Adequate Order Provider: CASSIE MARRUFO Procedures: Vascular Report: Venous Duplex imaging was performed bilaterally in the lower extremities. The common femoral, femoral, popliteal, posterior tibial, peroneal veins were evaluated for patency, spontaneity and phasicity with Doppler, compression and augmentation maneuvers. Great saphenous vein proximal at the junction was evaluated with compression maneuvers. Indications: Personal history of venous thrombosis. Findings: Performing Fisher Trammel Net: Corine Lala RVT. Bilateral: Venous Doppler signals [...] performed. Electronically Signed By: Saqib Forbes MD [facility] [phone] 2021-06-14 19:11:59 CUSTOMER RETENTION SPECIALIST CC: CC: Procedure Note Saqib Forbes MD - 06/14/[address]21 [facility] - Department of Vascular Surgery,Vascular Laboratory [address] [place] [address] Lower Extremity Venous Ultrasound Report Patient Name: JANIA GUAJARDOPatient ID: [id number] : 1950 (71y )Study Date: 06/14/2021 5:14:06 PM Gender: MAccession #: [id number] Tech: KCLocation: [id number] Ref.Provider: Tiara MARRUFOality: Adequate Order Provider: Richard MARRUFOunt #: [id number] Procedures: Vascular Report: Venous Duplex imaging was performed bilaterally in the lower extremities.The common femoral, femoral, popliteal, posterior tibial, peroneal veins wereevaluated for patency, spontaneity and phasicity with Doppler, compression and augmentationmaneuvers. Great saphenous vein proximal at the junction was evaluated with compressionmaneuvers. Indications: Personal history of venous thrombosis. Findings: Performing Fisher Trammel Net: Corine Lala RVT. Bilateral: Venous Doppler signals [...] performed. Electronically Signed By: Saqib Forbes MD [facility] [phone] 2021-06-14 19:11:59 CUSTOMER RETENTION SPECIALIST CC: CC: Cassie Meléndez Miley SKIDDER IMG US PROCEDURES Final Result documented in this encounter [...] documented as of this encounter Care Teams Aerospace Assembler Relationship Specialty Start Date End Date Jean-Claude Crawford MD [address] [place] [address] PCP - General Family Medicine 04/12/20 06/12/22 Jean-Claude Crawford MD [address] [place] [address] Family Medicine 04/12/20 documented as of this encounter
--- OUTSIDE RECORDS SUMMARY | 2024-04-08 10:38 | XMS_ITS | Encounter Summary ---
Author Organization [facility] Address [address] [place] [address] Phone Care Team Providers Care Clinical Business Analyst Name Role Phone Jean-Claude Crawford MD Primary Care Provider Reason for Visit * Reason Onset Date Comments Scheduling Appointments 03/30/2020 Encounter Details Date Type Department Care Team (Late st Contact Info) Description 03/30/2020 Telephone [facility] Surgery [address] [place] [address] [place] [address] Eugene Gomez MD [address] [facility] [phone] [place] [address] Scheduling Appointments Social History Tobacco Use Types Packs/Day Years Used Date Smoking Tobacco: Every Day Cigarettes Smokeless Tobacco: Never Alcohol Use Standard Drinks/Week Comments Yes 0 (1 standard drink = 0.6 oz pur e alcohol) limited Sex and Gender Information Value Date Recorded Sex Assigned at Not on file Legal Sex Male 9:10 PM INFORMATION TECHNOLOGY INTERN Gender Identity Not on file Sexual Orientation Not on file documented as of this encounter Miscellaneous Notes * Telephone Encounter - Shauna Cummings RMA - 03/30/2020 1:55 PM CST Scheduled patient for imaging and office visit and sent details in e-mail as patient's requested. RMATION TECHNOLOGY INTERN documented in this encounter Plan of Treatment [...] documented as of this encounter Care Teams Clinical Business Analyst Relationship Specialty Start Date End Date Jean-Claude Crawford MD [address] [facility] [address] [place] [address] PCP - General Family Medicine 08/18/19 04/11/20 documented as of this encounter
--- OUTSIDE RECORDS SUMMARY | 2024-04-08 10:38 | XMS_ITS | Encounter Summary ---
Author Organization [facility] Address [address] [place] [address] Care Team Providers Care Neurophysiological Technician Name Role Phone Jean-Claude Crawford MD Primary Care Provider Jean-Claude Crawford MD Unavailable [phone] Reason for Visit * Hospital - Outpatient (Routine) - Closed Specialty Diagnoses / Procedures Referred By Contac t Referred To Contact Diagnoses Atrial fibrillation, unspecified type (HCC) Chronic systolic heart failure (CMS/HCC) (HCC) Procedures NM MPI SPECT (Rest and/or Stress) Multiple Studies Abiodun Novak MD [address] [place] [address] Phone: tel: fax: [place] [address] [place] [address] Referral ID Status Reason Start Date Expiration Date Visits Re quested Visits Authorized [id number] Closed 08/25/2020 10/23/2020 5 5 Encounter Details Date Type Department Care Team (Latest Contact Info) Description 08/30/2020 10:25 AM CDT Hospital Encounter [facility] OP Cardiac Testing [address] [place], [place] [id number] Abiodun Novak MD [address] [place] [address] Discharge Disposition: Discharge to home [...] on file Legal Sex Male 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 Administer IV push over 10 seconds., Indications: Myocardial Perfusion Imaging AdjunctIndications:Myocard ial Perfusion Imaging Adjunct Given 08/30/2020 12:55 PM CDT 0.4 mg tc-99m sestamibi unit dose injection 25.4 millicurie 25.4 millicurie, intravenous, Once in imaging, radiopharmaceutical, Starting on 08/30/20 at 1216, For 1 dose, Indications: Diagnostic RadiographyIndications:Kay gnostic Radiography Given 08/30/2020 12:55 PM CDT 25.4 millicuries tc-99m sestamibi unit dose injection 8.5 millicurie 8.5 millicurie, intravenous, Once in imaging, radiopharmaceutical, Starting on Sat08/30/20 at 1216, For 1 dose, Indications: Diagnostic RadiographyIndications:Kay gnostic Radiography Given 08/30/2020 12:18 PM CDT 8.5 millicuries documented in this encounter Orders Medications Ordered That Bimal ht Not Have Been Administered Count Last Ordered Date First Ordered Date sodium chloride 0.9% flush 0.5-20 mL 2 08/07 documented in this encounter Additional Health Concerns Infection Onset Date Last Indicated Resolved Time MDR gram neg/ESBL Comment:06/16/2021 IP Review - Pt with scrotal abscess, but is not actively draining (last documented draining on 06/14). Pt remains intubated so requires trach aspirate for isolation discontinuation. Provider notified. Amanda Walker RN 12/19/2019 12/19/2019 documented as of this encounter Care Teams Neurophysiological Technician Relationship Specialty Start Date End Date Jean-Claude Crawford MD [address] [place] [address] PCP - General Family Medicine 04/12/20 06/12/22 Jean-Claude Crawford MD [address] [place] [address] Family Medicine 04/12/20 documented as of this encounter
--- OUTSIDE RECORDS SUMMARY | 2024-04-08 10:38 | XMS_ITS | Encounter Summary ---
Author Organization [facility] Address [address] [place] [address] Phone Care Team Providers Care Railroad Dispatcher Name Role Phone Jean-Claude Crawford MD Primary Care Provider Jean-Claude Crawford MD Unavailable [phone] Encounter Details Date Type Department Care Team (Late st Contact Info) Description 05/18/2020 Orders Only [facility] Surgery [address] [facility] Advanced Medicine 8th [place] [address] [place] [id number] Eugene Gomez MD [address] [facility] [id number] [place] [address] Social History Tobacco Use Types Packs/Day Years Used Date Smoking Tobacco: Every Day Cigarettes Smokeless Tobacco: Never Alcohol Use Standard Drinks/Week Comments Yes 0 (1 standard drink = 0.6 oz pur e alcohol) limited Sex and Gender Information Value Date Recorded Sex Assigned at Not on file Legal Sex Male 9:10 PM DESKTOP SUPPORT CONSULTANT Gender Identity Not on file Sexual [...] documented as of this encounter Care Teams Railroad Dispatcher Relationship Specialty Start Date End Date Jean-Claude Crawford MD [address] [place] [address] PCP - General Family Medicine 04/12/20 06/12/22 Jean-Claude Crawford MD [address] [place] [address] Family Medicine 04/12/20 documented as of this encounter
--- OUTSIDE RECORDS SUMMARY | 2024-04-08 10:38 | XMS_ITS | Encounter Summary ---
Author Organization [facility] Address [address] [place] [address] Care Team Providers Care Consumer Analyst Name Role Phone Jean-Claude Crawford MD Primary Care Provider Jean-Claude Crawford MD Unavailable [phone] Reason for Referral * Hospital - Outpatient (Routine) - Closed Specialty Diagnoses / Procedures Referred By Contac t Referred To Contact Diagnoses Atrial fibrillation, unspecified type (HCC) Chronic systolic heart failure (CMS/HCC) (HCC) Procedures 48 HR Holter Monitor Christopher Horton MD [address], [place] [address] Phone: tel: fax: [facility] [address] [place] [address] Referral ID Status Reason Start Date Expiration Date Visits Re quested Visits Authorized [id number] Closed 06/15/2020 09/22/2020 1 1 Reason for Visit * Hospital - Outpatient (Routine) - Closed Specialty Diagnoses / Procedures Referred By Contac t Referred To Contact Diagnoses Atrial fibrillation, unspecified type (HCC) Chronic systolic heart failure (CMS/HCC) (HCC) Procedures 48 HR Holter Monitor Christopher Horton MD [address], [place] [address] Phone: tel: fax: [facility] [address] [place] [address] Referral ID Status Reason Start Date Expiration Date Visits Re quested Visits Authorized [id number] Closed 06/15/2020 09/22/2020 1 1 Encounter Details Date Type Department Care Team (Latest Contact Info) Description 08/30/2020 10:26 AM CDT - 08/30/2020 11:59 PM CDT Hospital Encounter [facility] OP Cardiac Testing [address] [facility] [address] [place] [address] Christopher Horton MD [address] [place] [address] Atrial fibrillation, unspecified type (CMS/HCC); Chronic systolic [...] on file 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 Gender Identity Not on file Sexual [...] Procedure Name Priority Date/Time Associated Diagnosis Comments HOLTER MONITOR 48 HR Routine 08/30/2020 2:20 PM CDT Atrial fibrillation, unspecified type (CMS/HCC) Chronic systolic heart failure (CMS/HCC) documented in this encounter Results * 48 HR Holter Monitor (08/30/2020 2:20 PM CDT) Anatomical Region Laterality Modality Electrocardiogra phy 08/30/2020 1:56 PM CDT Narrative 09/06/2020 10:37 AM CDT [id number] [place] [address] HOLTER MONITOR Patient Name: JANIA GUAJARDO A : 1950 (70y 3m) Study Date: 08/30/2020 1:56:45 PM Gender: M Tech: brian dobson Ref.Provider: CHRISTOPHER HORTON Height(Cm): BSA: Weight(Kg): Order Provider: CHRISTOPHER HORTON Procedures: Holter Monitor Repor. Indications: Atrial Fibrillation. [...] hr, 40 min. Recorder: H3+. Total QRS: [id number]. Date Recorded: 2020-08-30 13:56:45. Date Processed: 2020-08-30 00:00:00. Consumer Studies Professor: brian dobson. Application Tech: Jaky MAJOR Conclusions: 1. Predominant rhythm is atrial fibrillation. 2. Suboptimal ventricular rate control. 3. No prolonged pauses. Summary: Rhythm Predominant rhythm is atrial fibrillation. Suboptimal ventricular rate control. Electronically Signed By: Christopher Horton MD, [facility] 2020-09-06 10:37:24 CDT Procedure Note Christopher Horton MD - 09/06/2020 [facility] [address] [place] [address] HOLTER MONITOR Patient Name: JANIA GUAJARDO APatient ID: [id number] : 1950 (70y 3m)Study Date: 08/30/2020 1:56:45 PM Gender: MAccession #: [id number] Tech: Tamara dobson.Provider: CHRISTOPHER HORTON Height(Cm): BSA: Weight(Kg): Order Provider: CHRISTOPHER HORTON Procedures: Holter Monitor Repor. Indications: Atrial Fibrillation. [...] hr, 40 min. Recorder: H3+. Total QRS: [id number]. Date Recorded: 2020-08-30 13:56:45. Date Processed: 2020-08-30 00:00:00. Consumer Studies Professor: brian dobson. Application Tech: Jaky MAJOR Conclusions: 1. Predominant rhythm is atrial fibrillation. 2. Suboptimal ventricular rate control. 3. No prolonged pauses. Summary: Rhythm Predominant rhythm is atrial fibrillation. Suboptimal ventricular rate control. Electronically Signed By: Christopher Horton MD, [facility] 2020-09-06 10:37:24 CDT Christopher Horton MD CV CARDIAC SERVICES [facility] Final Result documented in this [...] documented as of this encounter Care Teams Consumer Analyst Relationship Specialty Start Date End Date Jean-Claude Crawford MD [address] [place] [address] PCP - General Family Medicine 04/12/20 06/12/22 Jean-Claude Crawford MD [address] [place] [address] Family Medicine 04/12/20 documented as of this encounter
--- OUTSIDE RECORDS SUMMARY | 2024-04-08 10:38 | XMS_ITS | Encounter Summary ---
Author Organization [facility] Address [address] [place] [address] Phone Care Team Providers Care Restaurant Operations Manager Name Role Phone Jean-Claude Crawford MD Primary Care Provider Jean-Claude Crawford MD Unavailable Reason for Visit * Consultation (Routine) - Closed Specialty Diagnoses / Procedures Referred By Contac t Referred To Contact Hepatobiliary Surgery Diagnoses Cholecystitis Jean-Claude Crawford MD [address] [place] [address] Phone: tel: fax: Eugene Gomez MD [address] [id number] [place] [address] Phone: tel: fax: Referral ID Status Reason Start Date Expiration Date V isits Requested Visits Authorized [id number] Closed Specialty Services Required 05/18/2020 06/17/2021 1 1 Encounter Details Date Type Department Care Team (Latest Contact Info) Description 06/13/2020 1:45 PM SCIENTIFIC HELPER Office Visit [facility] Surgery [address] 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 Eugene Gomez M.D., F.A.C.S. Chief, Section of Surgical Oncology burn crew member [facility] Darryl Ortega [facility] - voice - fax [facility] Mailing Address: Overnight Mailing Address: [address] [place] [address] [address] [place] [facility], [address] [place], [place] [address] [place], [place] [address] FOLLOW-UP EVALUATION DATE OF VISIT: 06/13/20 REASON FOR VISIT: Acute cholecystitis requiring gallbladder drainage, abdominal wall abscess, hospital follow-up. Consult requested by Dr. Jean-Claude Crawford, *. HISTORY OF PRESENT ILLNESS: Mr. Redman is a 70 y.o. male who was an inpatient from 12/18/2019 to 12/28/2019 after he was transferred from an outside hospital for perforated cholecystitis. 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 ?? The patient initially??presented to [facility]??in July, with acute cholecystitis. During evaluation at [...] few weeks ago. Prior to admission, Mr. Redman worsening pain and??induration on the skin of [...] h ospitalization in July? Hospital Course: Mr. Redman was admitted directly to the [facility] floor. [...] stones and sludge and pericholecystic fluid. Mr. Redman was discharged to [facility] and I saw him in follow-up in the fall. At that time, he hadnon-bilious drain output and his drain was ultimately removed by interventional radiology in February,. He then completed a course of antibiotics. A CT scan in March, showed resolution of his fluid collections and he was doing well at that time. Since that time, Mr. Redman has been doing well. Still with sometimes bilious drainage versus purulent. Changes pad daily. Stable weight, normal bowel/bladder function. Mr. Redman underwent a CT scan of the abdomen and pelvis today, which I ordered and have personally reviewed, demonstrating derease in the abdominal wall and gallbladder abscess. The implications of these imaging findings and significance for Mr. Redman's diagnosis include further treatment and follow-up recommendations and were discussed with Mr. Redman. Mr. Redman underwent recent blood work, which I have [...] file for drug use. ??? [place] in [place] [address]. Employed as retired. No limitations on activity. He is able to ambulate without difficulty and can walk up 0 flights of stairs before becoming short of breath. ??? The patient is accompanied today by his FAMILY HISTORY: Mr. Redman's family history includes Lung cancer in his father.. Of note, there is no family history of nmstmk-xaecqloga-lgvkrbn disease or cancer. REVIEW OF SYSTEMS: The [...] cholecystitis. PLAN: I have recommended that Mr. Redman undergo an open cholecystectomy. We discussed this [...] involved. I spencer several pictures andprovided Mr. Redman with literature and several websites to obtain more information (ACS, NCI, ASCO).After our discussion, Mr. Redman decided to proceed with surgery. Informed consent was obtained in clinic today. We will proceed with surgery. We will arrange for the necessary pre-operative testing. Ianswered all of Mr. Redman's questions to his satisfaction. . I answered all of Mr. Redman's questions to [...] M.D., F.A.C.S. Chief, Section of Surgical Oncology burn crew member CC: Patient Care Team: Jean-Claude Crawford MD as PCP - General (Family Medicine) Jean-Claude Crawford MD (Family Medicine) Vending Service Technician completed by [employer]. Vending Service Technician variances may occur. NTIFIC HELPER documented in this encounter Plan of Treatment Not on file documented as of this encounter Visit Diagnoses Diagnosis Cholecystitis- Primary Cholecystitis, unspecified documented in this encounter Orders Outpatient Referral Count Last Ordered Date Fir st Ordered Date AMB REFERRAL TO HEPATOBILIARY SURGERY 1 11/2020 documented in this encounter Additional Health Concerns Infection Onset Date Last Indicated Resolved Time MDR gram neg/ESBL Comment:06/16/2021 IP Review - Pt with scrotal abscess, but is not actively draining (last documented draining on 06/14). Pt remains intubated so requires trach aspirate for isolation discontinuation. Provider notified. Amanda Walker RN 12/19/2019 12/19/2019 documented as of this encounter Care Teams Restaurant Operations Manager Relationship Specialty Start Date End Date Jean-Claude Crawford MD [address] [place] [address] PCP - General Family Medicine 04/12/20 06/12/22 Jean-Claude Crawford MD [address] [place] [address] Family Medicine 04/12/20 documented as of this encounter
--- OUTSIDE RECORDS SUMMARY | 2024-04-08 10:38 | XMS_ITS | Encounter Summary ---
Author Organization [facility] Address [address] [facility] [address] [place] [address] Care Team Providers Care Sound Art Instructor Name Role Phone Jean-Claude Crawford MD Primary Care Provider Jean-Claude Crawford MD Unavailable [phone] Reason for Visit * Reason Onset Date Comments Lab Results 06/23/2020 Encounter Details Date Type Department Care Team (Late st Contact Info) Description 06/23/2020 Telephone [facility] Cardiology [address] [facility] [address] [place] [address] Abiodun Novak MD [address] [facility] [address] [place] [address] Lab Results Social History Tobacco Use Types Packs/Day Years Used Date Smoking Tobacco: Every Day Cigarettes Smokeless Tobacco: Never Alcohol Use Standard Drinks/Week Comments Yes 0 (1 standard drink = 0.6 oz pur e alcohol) limited Sex and Gender Information Value Date Recorded Sex Assigned at Not on file 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 Asked to call should he have any questions * Telephone Encounter - Felicity Greene - 06/23/2020 10:18 AM CDT ----- Message from Abiodun Novak MD sent at 06/23/2020 10:07 AM CDT ----- A Please reassure that labs are ok documented in this encounter Plan of Treatment [...] documented as of this encounter Care Teams Sound Art Instructor Relationship Specialty Start Date End Date Jean-Claude Crawford MD [address] [place] [address] PCP - General Family Medicine 04/12/20 06/12/22 Jean-Claude Crawford MD [address] [place] [address] Family Medicine 04/12/20 documented as of this encounter
--- OUTSIDE RECORDS SUMMARY | 2024-04-08 10:38 | XMS_ITS | Encounter Summary ---
Author Organization [facility] Address [address] [facility] [address] [place] [address] Care Team Providers Care Communications Advisor Name Role Phone Jean-Claude Crawford MD Primary Care Provider Jean-Claude Crawford MD Unavailable [phone] Reason for Visit * Reason Onset Date Comments Results 08/30/2020 Encounter Details Date Type Department Care Team (Late st Contact Info) Description 08/30/2020 Telephone [facility] Cardiology [address] [facility] [address] [place] [address] Abiodun Novak MD [address] [facility] [address] [place] [address] Results Social History Tobacco Use Types Packs/Day [...] on file 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 Advised patient that thallium and holter results are still pending. * Telephone Encounter - Araceli Conner RDCS - 08/30/2020 1:00 PM CDT ----- Message from Abiodun Novak MD sent at 08/30/2020 12:43 PM CDT ----- ECHO shows stable mild weakness of his heart documented in this encounter Plan of Treatment [...] documented as of this encounter Care Teams Communications Advisor Relationship Specialty Start Date End Date Jean-Claude Crawford MD [address] [place] [address] PCP - General Family Medicine 04/12/20 06/12/22 Jean-Claude Crawford MD [address] [place] [address] Family Medicine 04/12/20 documented as of this encounter
--- OUTSIDE RECORDS SUMMARY | 2024-04-08 10:38 | XMS_ITS | Encounter Summary ---
Author Organization [facility] Address [address] [place] [address] Care Team Providers Care Safety Manager Name Role Phone Jean-Claude Crawford MD Primary Care Provider Jean-Claude Crawford MD Unavailable [phone] Encounter Details Date Type Department Care Team (Late st Contact Info) Description 01/25/2021 12:15 PM CDT Office Visit [facility] Cardiology 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 Gender Identity Not on file Sexual Orientation Not on file documented as of this encounter Last Filed Vital Signs Vital Sign Reading Time Taken Comments Blood Pressure 123/70 01/25/2021 12:17 PM CDT Pulse 78 01/25/2021 12:17 PM CDT Temperature - - Respiratory Rate - - Oxygen Saturation 98% 01/25/2021 12:17 PM CDT Inhaled Oxygen Concentration - - Weight 91.6 kg (202 lb) 01/25/2021 12:17 PM CDT Height 180.3 cm (5' 11 ) 01/25/2021 12:17 PM CDT Body Mass Index 28.17 01/25/2021 12:17 PM CDT documented in this encounter Patient Instructions * Patient Instructions* Cari Mckenzie MA - 01/25/2021 12:15 PM CDT OUTPATIENT CARDIOLOGY TESTING BUILDING [address] (SECOND FLOOR) WEAR COMFORTABLE CLOTHING AVOID LOTION, COLOGNES, OR PERFUMES ON CHEST AREA. NO FASTING RESTRICTIONS. TAKE ALL YOUR MEDICATIONS USUAL. OFFICE WILL CALL YOU WITH TEST RESULTS documented in this encounter Ordered Prescriptions Prescription Sig Dispense Quantity Refills Last Filled Start Date End Date metoprolol tartrate (LOPRESSOR) 100 mg tabletIndications: Atrial fibrillation, unspecified type (HCC) Take 1 tablet (100 mg total) by mouth 2 (two) times a day 180 tablet 3 01/25/2021 01/30/2021 documented in this encounter Progress Notes * Abiodun Novak MD - 01/25/2021 12:15 PM CDT Images from the original note were not included. [facility] Cardiology [address] [address] Cardiology MD Donavan Still MD Robert Kopitsky, MD Robert Lehman, MD Martin Schwarze, DO David Sewall, MD Christopher Speidel, MD Charis Park, DO Pedro Luis Diego, MD Andreas Wheeler, MD Paradise Martin, ANALYTICS ASSOCIATE Taryn Mckeon, ANALYTICS ASSOCIATE Jeanine Palacios, ANALYTICS ASSOCIATE Patient Name: Lloyd Redman Provider: Abiodun Novak M.D. : 1950 Date of Service: 01/25/2021 Referring: Yvette CHIEF COMPLAINT: Atrial fibrillation HISTORY OF PRESENT ILLNESS: 70 y.o. male with a history of atrial fibrillation SPECT study in August with an ejection fraction 38% no ischemia ECHO in August with mild LV dysfunction, ejection fraction 45%, mild RV dysfunction no significant valvular disease. Metabolic panel in July with normal renal function electrolytes, Overall feels well. His finally recovered from his multiple abdominal surgeries last year. Generally gaining strength. Weight gradually increasing. No angina. No limiting exertional dyspnea. No sense of tachycardia. Taking both carvedilol and metoprolol. PHYSICAL EXAM: BP 123/70 Pulse 78 Ht 180.3 cm (5' 11 ) Wt 91.6 kg (202 lb) SpO2 98% BMI 28.17 kg/m?? Body mass index is 28.17 kg/m??. General: Well appearing and in no distress Respiratory: Clear to ausculation bilaterally; no wheezing/rales/rhonchi; respirations non-labored,good effort and excursion Cardiovascular: RRR,normal PMI, normal S1 and S2. No S3 or S4. No murmers or rubs. Carotid upstrokes brisk bilaterally and without bruits Gastrointestinal: soft, non-tender abdomen, no hepatic congestion, no abnormal aortic pulsation Extremities: warm and well perfused with no cyanosis, clubbing, or edema Pulses: intact and symmetric Musculoskeletal: no obvious joint deformities, normal gait, able to excercise Skin: no obvious rash or bruising Psychiatric: normal mood and affect Neurologic: awake/alert, no focal deficits ASSESSMENT & PLAN: Diagnoses and all orders for this visit: Atrial fibrillation, unspecified type (HCC) (Primary) Assessment & Plan: Rates controlled, continue anticoagulation, discontinue carvedilol and increase metoprolol dose. Orders: - ECG 12 lead - metoprolol tartrate (LOPRESSOR) 100 mg tablet; Take 1 tablet (100 mg total) by mouth 2 (two) times a day - Transthoracic Echo Complete W Doppler/CF; Future Chronic systolic heart failure (CMS/HCC) (HCC) Assessment & Plan: Asymptomatic mild LV dysfunction, suspect tachycardia mediated, will reassess echo when seen back in six months. Continue beta-edmund and BRENNON Orders: - Transthoracic Echo Complete W Doppler/CF; Future Anticoagulation management encounter Comments: Tolerating Xarelto without complications continue Abiodun Novak M.D., [facility] documented in this encounter Miscellaneous Notes * Assessment & Plan Note - Abiodun Novak MD - 01/25/2021 12:44 PM CDT Associated Problem(s): Chronic systolic heart failure (CMS/HCC) (HCC) Asymptomatic mild LV dysfunction, suspect tachycardia mediated, will reassess echo when seen back in six months. Continue beta-edmund and BRENNON * Assessment & Plan Note - Abiodun Novak MD - 01/25/2021 12:44 PM CDT Associated Problem(s): Atrial fibrillation (CMS/HCC) (HCC) Rates controlled, continue anticoagulation, discontinue carvedilol and increase metoprolol dose. documented in this encounter Plan of Treatment Not on file documented as of this encounter Procedures Procedure Name Priority Date/Time Associated Diagnosis Comments ECG 12-LEAD Routine 01/25/2021 Atrial fibrillation, unspecified type (HCC) documented in this encounter Results * ECG 12 lead (01/25/2021) Abiodun Novak MD ECG ORDERABLES Final Res ult documented in this encounter Visit Diagnoses Diagnosis Atrial fibrillation, unspecified type (HCC)- Primary Chronic systolic heart failure (CMS/HCC) (HCC) Chronic systolic heart failure Anticoagulation management encounter Encounter for therapeutic drug monitoring documented in this encounter Discontinued Medications Medication Sig Discontinue Reason Start Date End Da te olmesartan-hydrochlorothi azide (BENICAR HCT) 40-12.5 mg per tablet Take 1 tablet by mouth daily 01/25/2021 carvediloL (COREG) 12.5 mg tablet Take 12.5 mg by mouth 2 (two) times a day with meals 01/25/2021 metoprolol tartrate (LOPRESSOR) 75 mg tablet immediate release tabletIndications:Atrial fibrillation, unspecified type (HCC) Take 1 tablet (75 mg total) by mouth 2 (two) times a day 09/07/2020 01/25/2021 documented as of this encounter Historical Medications * This list may reflect changes made after this encounter. pravastatin (PRAVACHOL) 40 mg tablet Take 40 mg by mouth daily 07/30/2022 carvediloL (COREG) 12.5 mg tablet Take 12.5 mg by mouth 2 (two) times a day with meals 01/25/2021 olmesartan-hydroc hlorothiazide (BENICAR HCT) 40-12.5 mg per tablet Take 1 tablet by mouth daily 01/25/2021 added in this encounter Additional Health Concerns Infection Onset Date Last Indicated Resolved Time MDR gram neg/ESBL Comment:06/16/2021 IP Review - Pt with scrotal abscess, but is not actively draining (last documented draining on 06/14). Pt remains intubated so requires trach aspirate for isolation discontinuation. Provider notified. Amanda Walker RN 12/19/2019 12/19/2019 documented as of this encounter Care Teams Safety Manager Relationship Specialty Start Date End Date Jean-Claude Crawford MD [address] [place] [address] PCP - General Family Medicine 04/12/20 06/12/22 Jean-Claude Crawford MD [address] [place] [address] Family Medicine 04/12/20 documented as of this encounter
--- OUTSIDE RECORDS SUMMARY | 2024-04-08 10:38 | XMS_ITS | Encounter Summary ---
Author Organization [facility] Address [address] [facility] [address] [place] [address] Phone Care Team Providers Care Traveling Phlebotomist Name Role Phone Jean-Claude Crawford MD Primary Care Provider Reason for Visit * Reason Onset Date Comments Scheduling Appointments 03/14/2020 Encounter Details Date Type Department Care Team (Late st Contact Info) Description 03/14/2020 Telephone [facility] Surgery [address] [facility] [address] 8th [place] [address] [place] [address] Eugene Gomez MD [address] [facility] [id number] [place] [address] Scheduling Appointments Social History Tobacco Use Types Packs/Day Years Used Date Smoking Tobacco: Every Day Cigarettes Smokeless Tobacco: Never Alcohol Use Standard Drinks/Week Comments Yes 0 (1 standard drink = 0.6 oz pur e alcohol) limited Sex and Gender Information Value Date Recorded Sex Assigned at Not on file Legal Sex Male 9:10 PM GLASS SCULLION Gender Identity Not on file Sexual Orientation Not on file documented as of this encounter Miscellaneous Notes * Telephone Encounter - Shauna Cummings RMA - 03/14/2020 10:58 AM GLASS SCULLION Scheduled CT for patient and called with date/time but there was no answer, left message for patient to return my call S SCULLION * Telephone Encounter - Shauna Cummings RMA - 03/14/2020 10:58 AM GLASS SCULLION ----- Message from Haley Fallon CMA sent at 03/14/2020 10:36 AM GLASS SCULLION ----- Regarding: FW: Pt appt? Please see below. Thank you. ----- Message ----- From: Eugene Gomez MD Sent: 03/11/2020 11:12 AM GLASS SCULLION To: AMOL Baird, Haley Fallon CMA Subject: RE: Pt appt? Continue antibiotics and dressing changes as needed. He should get a CT scan of abdomen/pelvis early next week, ideally at our facility so I can see, and we will go from there. If fevers, chills, worsening pain, etc. He should call the exchange and we will assess. ----- Message ----- From: Haley Fallon CMA Sent: 03/11/2020 10:53 AM GLASS SCULLION To: AMOL Baird, Eugene Gomez MD Subject: Pt appt? Pt's called - States that tube was removed from abscess by IR. There was leaking coming from adifferent place. A new tube was not placed, but instead pt was prescribed 10 days of antibiotics. Abscess did begin to dry, but started to leak again. Was told by the nurse at IR that the patient needs to see you in order to have the tube replaced. Please advise - should I schedule an appt with you? #hopefully this makes sense. S SCULLION documented in this encounter Plan of Treatment [...] documented as of this encounter Care Teams Traveling Phlebotomist Relationship Specialty Start Date End Date Jean-Claude Crawford MD [address] [facility] [address] [place] [address] PCP - General Family Medicine 08/18/19 04/11/20 documented as of this encounter
--- OUTSIDE RECORDS SUMMARY | 2024-04-08 10:38 | XMS_ITS | Encounter Summary ---
Author Organization [facility] Address [address] [place] [address] Care Team Providers Care Postal Inspector Name Role Phone Jean-Claude Crawford MD Primary Care Provider Reason for Referral * Diagnostic Imaging (Routine) - Closed Specialty Diagnoses / Procedures Referred By Contac t Referred To Contact Radiology Diagnoses Cholecystitis Procedures CT Abdomen Pelvis W Contrast CT Abdomen Pelvis W WO Contrast Eugene Gomez MD Phone: tel: fax: [address] [phone] Referral ID Status Reason Start Date Expiration Date Visits Re quested Visits Authorized [id number] Closed 03/14/2020 05/12/2020 1 1 TUDE CHAMBER TECHNICIAN Reason for Visit * Diagnostic Imaging (Routine) - Closed Specialty Diagnoses / Procedures Referred By Lei t Referred To Contact Radiology Diagnoses Cholecystitis Procedures CT Abdomen Pelvis W Contrast CT Abdomen Pelvis W WO Contrast Eugene Gomez MD Phone: tel: fax: [address] [phone] Referral ID Status Reason Start Date Expiration Date Visits Re quested Visits Authorized [id number] Closed 03/14/2020 05/12/2020 1 1 Encounter Details Date Type Department Care Team (Latest Contact Info) Description 03/26/2020 10:29 AM ALTITUDE CHAMBER TECHNICIAN - 03/26/2020 11:59 PM ALTITUDE CHAMBER TECHNICIAN Hospital Encounter [facility] [place] [address] Eugene Gomez MD [address] [facility] [id number] [place] [address] Cholecystitis Discharge Disposition: Discharge to home or self care Social History Tobacco Use Types Packs/Day Years Used Date Smoking Tobacco: Every Day Cigarettes Smokeless Tobacco: Never Alcohol Use Standard Drinks/Week Comments Yes 0 (1 standard drink = 0.6 oz pur e alcohol) limited Sex and Gender Information Value Date Recorded Sex Assigned at Not on file Legal Sex Male 9:10 PM ALTITUDE CHAMBER TECHNICIAN Gender Identity Not on file Sexual [...] CONTRAST Schedule Routine, Read Routine (OP Routine) 03/26/2020 11:19 AM ALTITUDE CHAMBER TECHNICIAN Cholecystitis POCT CREATININE - DEVICE Routine 03/26/2020 11:10 AM ALTITUDE CHAMBER TECHNICIAN documented in this encounter Results * CT Abdomen Pelvis W Contrast (03/26/2020 11:19 AM ALTITUDE CHAMBER TECHNICIAN) Anatomical Region Laterality Modality Body N/A Computed Tomogra phy 03/26/2020 1:03 PM ALTITUDE CHAMBER TECHNICIAN Impressions 03/26/2020 1:03 PM ALTITUDE CHAMBER TECHNICIAN 1. Interval decrease in size of rim-enhancing fluid collection in the anterior abdominal wall on the right upper quadrant. There are similar decrease in size of fluid collection and inflammatory changes in the gallbladder fossa and along the tract of prior drainage catheter. Perihepatic ascites is also decreased. No new fluid collections are identified. 2. Interval resolution of right pleural effusion with small focus of gas in the right lower lobe which could represent small pneumatocele or focus of pleural gas. No free flowing pneumothorax identified. Small left pleural effusion. Electronically signed by: Rui Vick M.D. Narrative 03/26/2020 1:03 PM ALTITUDE CHAMBER TECHNICIAN EXAMINATION: ??Computed tomography of the abdomen and pelvis with intravenous contrast HISTORY: Perforated cholecystitis status post cholecystectomy complicated by gallbladder fossa abscess status post percutaneous drainage TECHNIQUE: ??Transaxial computed tomographic images of the abdomen and pelvis were obtained with intravenous contrast according to the standard protocol after the uneventful administration of 100 mL Opti-Ray 350 intravenous contrast. COMPARISON: CT chest 02/24/2020, outside hospital CT 12/18/2019 FINDINGS: Limited images of the lower thorax demonstrate mild cardiomegaly with trace pericardial effusion as described calcifications are present in the coronary arteries. Small left pleural effusion calcified granuloma in the left lung base is unchanged. Minimal subtle subpleural reticulation in the right middle and lower lobe, which may represent an underlying interstitial lung disease. Interval resolution of right pleural effusion with small focus of gas in the right basilar hemithorax. There is a lenticular, thick-walled peripherally enhancing fluid collection in the right upper quadrant anterior abdominal wall measuring 8.1 x 2.7 cm at slice position -215.5, previously multiloculated and measuring up to 10.6 x 3.0 cm. There is small volume perihepatic ascites. Interval decrease in size of amount of fluid in the gallbladder fossa however, soft tissue stranding and thickening related to inflammatory change is persistent. At the extent of the inflammatory changes measures approximately 4.4 x 2.9 cm slice position -221.5, previously 4.6 x 3.4 cm and measured in similar fashion. Fluid along the course of prior drainage catheter has slightly decreased compared to the prior exam. Free ascites in the upper abdomen is also decreased. Spleen and pancreas are normal. Bilateral adrenal nodules are unchanged. Large right peripelvic renal cyst is unchanged no isma hydronephrosis. Kidneys demonstrate symmetric enhancement. Urinary bladder is mildly thick-walled. Prostate is mildly enlarged. Scattered colonic diverticula without evidence of diverticulitis. Appendix is normal. No pathologically enlarged mesenteric, retroperitoneal, or pelvic lymph nodes. The abdominal aorta is normal in course and caliber with severe atherosclerotic disease. No suspicious lytic or blastic osseous lesion. Multilevel degenerative changes of the visualized spine. Procedure Note Rui Vick MD - 03/26/2020 EXAMINATION: Computed tomography of the abdomen and pelvis with intravenous contrast HISTORY: Perforated cholecystitis status post cholecystectomy complicated by gallbladder fossa abscess status post percutaneous drainage TECHNIQUE: Transaxial computed tomographic images of the abdomen and pelvis were obtained with intravenous contrast according to the standard protocol after the uneventful administration of 100 mL Opti-Ray 350 intravenous contrast. COMPARISON: CT chest 02/24/2020, outside hospital CT 12/18/2019 FINDINGS: Limited images of the lower thorax demonstrate mild cardiomegaly with trace pericardial effusion as described calcifications are present in the coronary arteries. Small left pleural effusion calcified granuloma in the left lung base is unchanged. Minimal subtle subpleural reticulation in the right middle and lower lobe, which may represent an underlying interstitial lung disease. Interval resolution of right pleural effusion with small focus of gas in the right basilar hemithorax. There is a lenticular, thick-walled peripherally enhancing fluid collection in the right upper quadrant anterior abdominal wall measuring 8.1 x 2.7 cm at slice position -215.5, previously multiloculated and measuring up to 10.6 x 3.0 cm. There is small volume perihepatic ascites. Interval decrease in size of amount of fluid in the gallbladder fossa however, soft tissue stranding and thickening related to inflammatory change is persistent. At the extent of the inflammatory changes measures approximately 4.4 x 2.9 cm slice position -221.5, previously 4.6 x 3.4 cm and measured in similar fashion. Fluid along the course of prior drainage catheter has slightly decreased compared to the prior exam. Free ascites in the upper abdomen is also decreased. Spleen and pancreas are normal. Bilateral adrenal nodules are unchanged. Large right peripelvic renal cyst is unchanged no isma hydronephrosis. Kidneys demonstrate symmetric enhancement. Urinary bladder is mildly thick-walled. Prostate is mildly enlarged. Scattered colonic diverticula without evidence of diverticulitis. Appendix is normal. No pathologically enlarged mesenteric, retroperitoneal, or pelvic lymph nodes. The abdominal aorta is normal in course and caliber with severe atherosclerotic disease. No suspicious lytic or blastic osseous lesion. Multilevel degenerative changes of the visualized spine. IMPRESSION: 1. Interval decrease in size of rim-enhancing fluid collection in the anterior abdominal wall on the right upper quadrant. There are similar decrease in size of fluid collection and inflammatory changes in the gallbladder fossa and along the tract of prior drainage catheter. Perihepatic ascites is also decreased. No new fluid collections are identified. 2. Interval resolution of right pleural effusion with small focus of gas in the right lower lobe which could represent small pneumatocele or focus of pleural gas. No free flowing pneumothorax identified. Small left pleural effusion. Electronically signed by: Rui Vick M.D. Eugene Gomez MD IMG CT PROCEDURES Final Result * POCT creatinine (03/26/2020 11:10 AM ALTITUDE CHAMBER TECHNICIAN) Creatinine POC 0.8 0.7 - 1.3 mg/dL [facility] Blood specimen (specimen) 03/26/2020 11:10 AM ALTITUDE CHAMBER TECHNICIAN 03/26/2020 11:10 AM ALTITUDE CHAMBER TECHNICIAN Eugene Gomez MD LAB POCT ORDERABLES - DE VICE Final Result [facility] [address] [facility] Department [place] [address] documented in this encounter Visit Diagnoses Diagnosis Cholecystitis Cholecystitis, unspecified documented in this encounter Administered Medications Inactive Administered Medications - up to 3 most recent administrations Medication Order MAR Action Action Date Dose Rate Site ioversoL (OPTIRAY 350) syringe syringe 100 mL 100 mL, intravenous, Once in imaging, contrast, Starting on 03/26/20 at 1120, For 1 dose Given 03/26/2020 11:21 AM ALTITUDE CHAMBER TECHNICIAN 100 mL documented in this encounter Orders Medications Ordered That Bimal ht Not Have Been Administered Count Last Ordered Date First Ordered Date ioversoL (OPTIRAY 350) syrin ge syringe 100 mL 1 03/26/2020 documented in this encounter Additional Health Concerns Infection Onset Date Last Indicated Resolved Time MDR gram neg/ESBL Comment:06/16/2021 IP Review - Pt with scrotal abscess, but is not actively draining (last documented draining on 06/14). Pt remains intubated so requires trach aspirate for isolation discontinuation. Provider notified. Amanda Walker RN 12/19/2019 12/19/2019 documented as of this encounter Care Teams Postal Inspector Relationship Specialty Start Date End Date Jean-Claude Crawford MD [address] [facility] [address] [place] [address] PCP - General Family Medicine 08/18/19 04/11/20 documented as of this encounter
--- OUTSIDE RECORDS SUMMARY | 2024-04-08 10:38 | XMS_ITS | Encounter Summary ---
Author Organization [facility] Address [address] [place] [address] Care Team Providers Care Stock Counter Name Role Phone Jean-Claude Crawford MD Primary Care Provider Jean-Claude Crawford MD Unavailable [phone] Reason for Visit * Reason Onset Date Comments 24 hour Holter monitor results 09/07/2020 Encounter Details Date Type Department Care Team (Late st Contact Info) Description 09/07/2020 Telephone [facility] Cardiology [address] [place] [address] Abiodun Novak MD [address] [facility] [address] [place] [address] 24 hour Holter monitor results Social History Tobacco Use Types Packs/Day Years [...] on file Legal Sex Male 9:10 PM FUNERAL HOME ASSISTANT Gender Identity Not on file Sexual Orientation Not on file documented as of this encounter Ordered Prescriptions Prescription Sig Dispense Quantity Refills Last Filled Start Date End Date metoprolol tartrate (LOPRESSOR) 75 mg tablet immediate release tabletIndications: Atrial fibrillation, unspecified type (HCC) Take 1 tablet (75 mg total) by mouth 2 (two) times a day 180 tablet 3 09/07/2020 01/25/2021 documented in this encounter Miscellaneous Notes * Telephone Encounter - Felicity Greene - 09/07/2020 9:10 AM CDT Patient spouse returned call. I relayed holter result and physician recommendation to increase Metoprolol to 75 mg bid. For now, patient will cut current tablets in half. New script for 75 mg tabletshas been sent to patient mail pharmacy per request of patient. * Telephone Encounter - Nuzhat Alva - 09/07/2020 9:00 AM CDT ----- Message from Abiodun Novak MD sent at 09/07/2020 8:14 AM CDT ----- Holter shows AFib, heart rates of touch fast, suggest increasing metoprolol to 75 b.i.d.. documented in this encounter Plan of Treatment Not on file documented as of this encounter Visit Diagnoses Diagnosis Atrial fibrillation, unspecified type (HCC)- Primary documented in this encounter Discontinued Medications Medication Sig Discontinue Reason Start Date End Da te metoprolol tartrate (LOPRESSOR) 50 mg immediate release tablet Take 1 tablet (50 mg total) by mouth 2 (two) times a day 02/22/2020 09/07/2020 documented as of this encounter Additional Health Concerns Infection Onset Date Last Indicated Resolved Time MDR gram neg/ESBL Comment:06/16/2021 IP Review - Pt with scrotal abscess, but is not actively draining (last documented draining on 06/14). Pt remains intubated so requires trach aspirate for isolation discontinuation. Provider notified. Amanda Walker RN 12/19/2019 12/19/2019 documented as of this encounter Care Teams Stock Counter Relationship Specialty Start Date End Date Jean-Claude Crawford MD [address] [place] [address] PCP - General Family Medicine 04/12/20 06/12/22 Jean-Claude Crawford MD [address] [place] [address] Family Medicine 04/12/20 documented as of this encounter
--- OUTSIDE RECORDS SUMMARY | 2024-04-08 10:38 | XMS_ITS | Encounter Summary ---
Author Organization [facility] Address [address] [place] [address] Phone Care Team Providers Care Code Number Stamper Name Role Phone Jean-Claude Crawford MD Primary Care Provider Reason for Referral * Diagnostic Imaging (Routine) - Closed Specialty Diagnoses / Procedures Referred By Contac t Referred To Contact Radiology Diagnoses Cholecystitis Procedures CT Abdomen Pelvis W Contrast CT Abdomen Pelvis W WO Contrast Eugene Gomez MD Phone: tel: fax: [address] [address] Referral ID Status Reason Start Date Expiration Date Visits Re quested Visits Authorized [id number] Closed 03/14/2020 05/12/2020 1 1 DEALER Encounter Details Date Type Department Care Team (Late st Contact Info) Description 03/14/2020 Orders Only [facility] Surgery [address] [place] [address] [place] [id number] Eugene Gomez MD [id number] [place] [address] Cholecystitis (Primary Dx) Social History Tobacco Use Types Packs/Day Years Used Date Smoking Tobacco: Every Day Cigarettes Smokeless Tobacco: Never Alcohol Use Standard Drinks/Week Comments Yes 0 (1 standard drink = 0.6 oz pur e alcohol) limited Sex and Gender Information Value Date Recorded Sex Assigned at Not on file Legal Sex Male 9:10 PM DICE DEALER Gender Identity Not on file Sexual Orientation Not on file documented as of this encounter Plan of Treatment Not on file documented as of this encounter Results * CT Abdomen Pelvis W Contrast (03/26/2020 11:19 AM DICE DEALER) Anatomical Region Laterality Modality Body N/A Computed Tomogra phy 03/26/2020 1:03 PM DICE DEALER Impressions 03/26/2020 1:03 PM DICE DEALER 1. Interval decrease in size of rim-enhancing [...] Rui Vick M.D. Narrative 03/26/2020 1:03 PM DICE DEALER EXAMINATION: ??Computed tomography of the abdomen and [...] by: Rui Vick M.D. Eugene Gomez MD IM CT PROCEDURES Final Result documented in this encounter [...] documented as of this encounter Care Teams Code Number Stamper Relationship Specialty Start Date End Date Jean-Claude Crawford MD [address] [facility] [address] [place] [id number] PCP - General Family Medicine 08/18/19 04/11/20 documented as of this encounter
--- OUTSIDE RECORDS SUMMARY | 2024-04-08 10:39 | XMS_ITS | Encounter Summary ---
Author Organization [facility] Healthcare Address [address] [place] [address] Care Team Providers Care Protohistorian Name Role Phone Jean-Claude Crawford MD Primary Care Provider Encounter Details Date Type Department Care Team (Latest Contact Info) Description 12/18/2019 8:15 PM CDT - 12/28/2019 4:23 PM CDT Hospital Encounter [facility] [address] [place] [address] Jeff Rivera MD [address] [facility] [place] [id number] [place] [address] Eugene Oates MD [address] [facility] [place] [id number] [place] [address] Diagnosis unknown Discharge Disposition: Discharge to SNF Social History Tobacco Use Types Packs/Day Years Used Date Smoking Tobacco: Every Day Cigarettes Smokeless Tobacco: Never Alcohol Use Standard Drinks/Week Comments Yes 0 (1 standard drink = 0.6 oz pur e alcohol) limited Sex and Gender Information Value Date Recorded Sex Assigned at Not on file 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 Gender Identity Not on file Sexual Orientation Not on file documented as of this encounter Last Filed Vital Signs Vital Sign Reading Time Taken Comments Blood Pressure 128/84 12/28/2019 2:20 PM CDT Pulse 73 12/28/2019 2:20 PM CDT Temperature 36.4 ??C (97.5 ??F) 12/28/2019 4:47 AM CD T Respiratory Rate 18 12/28/2019 2:20 PM CDT Oxygen Saturation 98% 12/28/2019 2:20 PM CDT Inhaled Oxygen Concentration - - Weight 76.7 kg (169 lb 3.2 oz) 12/28/2019 5:00 A M CDT Height 180.3 cm (5' 11 ) 12/18/2019 9:00 PM CDT Body Mass Index 23.6 12/18/2019 9:00 PM CDT documented in this encounter Discharge Diagnoses Diagnosis Peritoneal abscess (CMS/HCC) (HCC) - PERITONEAL ABSCESS Peritoneal abscess Perforation of gallbladder in cholecystitis - PERFORATION OF GALLBLADDER IN CHOLECYSTITIS Cholecystitis, unspecified - CHOLECYSTITIS, UNSPECIFIED Hyperlipidemia, unspecified - HYPERLIPIDEMIA, UNSPECIFIED Nicotine dependence, cigarettes, uncomplicated - NICOTINE DEPENDENCE, CIGARETTES, UNCOMPLICATED Essential (primary) hypertension - ESSENTIAL (PRIMARY) HYPERTENSION Unspecified essential hypertension Alcohol abuse, uncomplicated - ALCOHOL ABUSE, UNCOMPLICATED Allergy status to penicillin - ALLERGY STATUS TO PENICILLIN Contact with and (suspected) exposure to other viral communicable diseases - CONTACT WITH AND (SUSPECTED) EXPOSURE TO OTHER VIRAL COMMUNICABLE DISEASES documented in this encounter Discharge Summaries * Stephany Chavez PA - 12/28/2019 12:29 PM CDT Inpatient Discharge Summary BRIEF OVERVIEW Admitting Provider: Jeff Rivera MD Discharge Provider: Eugene Oates MD Primary Care Physician at Discharge: Jean-Claude Crawford MD [phone] Admission Date: 12/18/2019 Discharge Date: 12/28/19 10 Primary Discharge Diagnosis: Cholecystitis Secondary Discharge Diagnosis: Principal Problem: Cholecystitis Active Problems: Intra-abdominal abscess (CMS/HCC) DETAILS OF HOSPITAL STAY Presenting Problem/History of Present Illness: Mr. Lloyd Redman is a 69 y.o. 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 ?? The patient initially presented to [facility]in July, with acute cholecystitis. During evaluation at the hospital, ??he was found to be in AFib with RVR and later developed alcohol withdrawal. Determined to be a poor candidate for surgery, he was was treated with antibiotics and improved.??In September, he presented with similar symptoms as his prior episode and was found to have an abscess in the gall bladder fossa secondary to gallbladder perforation, requiring antibiotics and multiple percutaneous drainages. His last drain was removed a few weeks ago. ?? For the past few weeks at his fpc, patient noticed worsening pain and induration on the skin of his RUQ that intermittently drains reddish-rodriguez dischage. The patient denies a recent history of fever or chills.??He also denies any changes in bowel habbits or appetite. He was seen at the OSHyesterday where he was noted to be non-leukocytotic, and afebrile. A CT A/P with contrast was notedto have a large multilocular abscess along the RU abdominal wall. ?? Of note the patient has a history of alcohol abuse, drinking 3 4oz drinks of Tequila daily prior toa hospitalization in July Hospital Course: Mr. Redman was admitted directly [...] with stones and sludge and pericholecystic fluid. He will return in 2 weeks for drain evaluation with Interventional Radiology and surgical consultation with Dr. Oates where cholecystectomy will be planned when nutritional and functional status have improved. Group Home facility placement was arranged by our Welding Machine Operator Resistance. Active Issues Requiring Follow-up: Drain care Lab draws IV antibiotics Midline catheter removal after 12/30 Test Results Pending at Discharge: Operative Procedures Performed: Other Procedures: Imaging (Last 96 hours) 12/19 193 US Gallbladder 12/18 1205 IR Fluid Drain Soft Tissue Pertinent Test Results: Lab Results Component Value Date WBC 5.4 12/20/2019 WBC 5.2 12/20/2019 WBC 5.9 12/18/2019 ] Lab Results Component Value Date CREATININE 0.48 (L) 12/20/2019 CREATININE 0.57 (L) 12/20/2019 CREATININE 0.49 (L) 12/18/2019 Lab Results Component Value Date HGB 10.4 (L) 12/20/2019 HGB 9.8 (L) 12/20/2019 HGB 10.3 (L) 12/18/2019 Lab Results Component Value Date BILITOT 0.2 12/20/2019 BILITOT 0.2 12/20/2019 BILITOT 0.4 12/18/2019 Lab Results Component Value Date ?? MICROBIOLOGY (.) 12/19/2019 ? Final Report: Abundant Escherichia coli * * * * * * * * * * * * * * * * * * * * The susceptibility pattern of this Escherichia coli indicates the possible production of an extended spectrum beta lactamase (ESBL). Patients infected with ESBL-producing organisms require contact isolation precautions. For therapeutic options for this organism, please contact infectious diseases. ? Susceptibility ? Escherichia coli ? INTERPRETATION ? Ampicillin Resistant ? Ampicillin with Sulbactam Resistant ? Cefazolin Resistant ? Cefepime Resistant ? Ceftazidime Resistant ? Ceftriaxone Resistant ? Ciprofloxacin Resistant ? Gentamicin Susceptible ? Meropenem Susceptible ? Trimethoprim with Sulfamethoxazole Resistant ? Narrative ? Recent Radiology studies were reviewed and significant for: ?? RUQ ultrasound 12/20 FINDINGS: ?? Liver: The liver is normal in size. ??The echotexture is normal. ??The echogenicity is normal. There is no surface nodularity. No focal solid lesions are visualized. ?? Gallbladder: The gallbladder is irregular with marked wall thickening. ??There are stones and sludge within the gallbladder. There is a right upper quadrant drain in a pericholecystic collection, with a small amount of perihepatic fluid. ?? Bile Duct: There is no intrahepatic bile duct dilatation. The common duct measures 2 mm, 5 mm in the proximal and mid ducts, respectively. ??The distal common bile duct is obscured by bowel gas. Pancreas: The visualized portions of the head of the pancreas are normal. Impression: ?? Irregular, markedly thick-walled gallbladder containing stones and sludge; pericholecystic collection with drain in place; and small amount of perihepatic fluid. ??These findings are compatible with sequelae of perforated cholecystitis. ? CT 12/18 Impression: ?? Multiloculated abscess arising from the gallbladder fossa with extension to the subcutaneous tissue of the ventral abdominal wall. ? Recent Interventions: ?? Percutaneous drainage 12/18 FINDINGS: Images from the procedure revealed a moderate-sized, multiloculated fluid collection in the right abdominal wall, corresponding to the collection seen on prior CT. ??The fluid appeared purulent. ??An approximate volume of 10 cc was drained at the time of the procedure and sent for labs. Impression: ?? Successful image guided right upper quadrant abscess drainage. Imaging Performed Discharge Details Physical Exam at Discharge: Discharge Condition: Good Pulse: 73 Resp: 18 BP: 128/84 Temp: 36.4 ??C (97.5 ??F) Weight: 76.7 kg (169 lb 3.2 oz) Pertinent Exam Findings at Discharge: see last progress note Discharge Disposition: Final discharge disposition not confirmed Code Status at Discharge: Full Code Discharge Instructions: ! Call Your Doctor If Call if you are having any new problems. We prefer you call us directly rather than go to your local hospital or clinic. Even if you decide to go to your local emergency room, call us so we can arrange transfer if needed. Call your surgeon???s office (listed in follow up section) for the following: * You have a fever of 101 degrees or higher. * Your pain medicine is not helping your pain. * You have nausea or vomiting. * You are not passing gas. * You are having diarrhea. * You appear jaundiced (yellow eyes, dark urine, light stool). * Your tube becomes clogged and will not flush. * You have a sudden change in your drain output or appearance. ! Diet ? Yogurt encouraged daily while on antibiotics ? Follow a LOW FAT DIET ? 2- 3 high protein supplements recommended daily ? It is important that you improve your nutrition prior to surgery ! Activity * No driving while taking narcotic pain medication. * You are encouraged to walk frequently and remain active during the day. * You may return to non-strenuous work activity in 5-7 days. * No lifting greater than 10 pounds while drain is in place. * No tub baths, swimming, or hot tubs while drain is in place. * You may shower; do not scrub the drain site. Care Instructions * Monitor weight twice weekly. * Keep the abscess drain securely attached at all times to prevent them from being pulled out. * Flush the abscess drain twice daily with 10ml normal saline. * Empty the drain 1-2 times each day. Measure the amount each time and write it down. Bring your record to your doctor???s appointment. * Nurse to draw CBC, CMP 12/24 and 12/29 while on antibiotics. Please fax to . * Daily PT/ OT evaluation and treatment. It is important that you improve your strength and conditioning prior to future surgery * Remove midline after antibiotics complete 12/30 ? ! Follow Up ??? INTERVENTIONAL RADIOLOGY will see you to check your drain on January 03 at 11am in the [facility], [address] [place] [address] - 3rd Floor Radiology [address], [place] [address]. Please call for questions or concerns regarding your drain. ??? * DR. OATES will see you on SaturdayJanuary 03 at 2:15pm in the [facility] ([facility]), [address] [place] [address] - [address] , [place] [address]. Please call for questions or concerns. ??? With your PRIMARY CARE DOCTOR (PCP) within 2-3 weeks after discharge. Additional Information Discharge Medications: Your medication list START taking these medications acetaminophen 500 mg capsule Take 2 capsules (1,000 mg total) by mouth every 6 (six) hours as needed for pain meropenem 1,000 mg/110 mL Infuse 110 mL (1,000 mg total) into a venous catheter every 8 (eight) hours for 8 days Commonly known as: MERREM ondansetron ODT 4 mg disintegrating tablet Take 1 tablet (4 mg total) by mouth every 4 (four) hours as needed for nausea or vomiting Commonly known as: ZOFRAN-ODT sodium chloride 0.9% injection Flush drain with 10cc NS bid CHANGE how you take these medications metoprolol tartrate 50 mg immediate release tablet Take 1 tablet (50 mg total) by mouth 2 (two) times a day Commonly known as: LOPRESSOR What changed: medication strength how much to take CONTINUE taking these medications aspirin 325 mg enteric coated tablet cholecalciferol 5,000 unit tablet Commonly known as: VITAMIN D-3 diltiazem 360 mg 24 hr capsule Commonly known as: TIAZAC folic acid 1 mg tablet Commonly known as: FOLVITE levalbuterol 1.25 mg/3 mL nebulizer solution Commonly known as: XOPENEX magnesium oxide 400 mg (241.3 mg elemental magnesium) tablet Commonly known as: MAG-OX ualkakee-iqmpwms-qfpl-lutein tablet omeprazole 20 mg capsule Commonly known as: PriLOSEC polyethylene glycol 17 gram packet Commonly known as: MIRALAX QUEtiapine 25 mg tablet Commonly known as: SEROquel terazosin 10 mg capsule Commonly known as: HYTRIN thiamine 100 mg tablet Commonly known as: VITAMIN B1 STOP taking these medications enoxaparin 80 mg/0.8 mL syringe Commonly known as: LOVENOX potassium chloride ER 10 mEq CR tablet Commonly known as: KLOR-CON Outpatient Follow-Up: Future Appointments Date Time Provider Department Center 01/04/2020 11:00 AM [facility] N IR [address] [facility] N IR [facility] Main IM 01/04/2020 2:15 PM Eugene Oates MD [facility] 8C OLIVIA Cosigned by Eugene Oates MD at 12/28/2019 3:14 PM CDT documented in this encounter Discharge Instructions * Discharge Instructions* Stephany Chavez PA - 12/28/2019 2:30 PM CDT ! Call Your Doctor If Call if you are having any new problems. We prefer you call us directly rather than go to your local hospital or clinic. Even if you decide to go to your local emergency room, call us so we can arrange transfer if needed. Call your surgeon???s office (listed in follow up section) for the following: * You have a fever of 101 degrees or higher. * Your pain medicine is not helping your pain. * You have nausea or vomiting. * You are not passing gas. * You are having diarrhea. * You appear jaundiced (yellow eyes, dark urine, light stool). * Your tube becomes clogged and will not flush. * You have a sudden change in your drain output or appearance. ! Diet ? Yogurt encouraged daily while on antibiotics ? Follow a LOW FAT DIET ? 2- 3 high protein supplements recommended daily ? It is important that you improve your nutrition prior to surgery ! Activity * No driving while taking narcotic pain medication. * You are encouraged to walk frequently and remain active during the day. * You may return to non-strenuous work activity in 5-7 days. * No lifting greater than 10 pounds while drain is in place. * No tub baths, swimming, or hot tubs while drain is in place. * You may shower; do not scrub the drain site. Care Instructions * Monitor weight twice weekly. * Keep the abscess drain securely attached at all times to prevent them from being pulled out. * Flush the abscess drain twice daily with 10ml normal saline. * Empty the drain 1-2 times each day. Measure the amount each time and write it down. Bring your record to your doctor???s appointment. * Nurse to draw CBC, CMP 12/24 and 12/29 while on antibiotics. Please fax to . * Daily PT/ OT evaluation and treatment. It is important that you improve your strength and conditioning prior to future surgery * Remove midline after antibiotics complete 12/30 ? ! Follow Up ??? INTERVENTIONAL RADIOLOGY will see you to check your drain on January 03 at 11am in the [facility], [address] [place] [address] - 3rd Floor Radiology [address], [place] [address]. Please call for questions or concerns regarding your drain. ??? * DR. OATES will see you on SaturdayJanuary 03 at 2:15pm in the [facility] ([facility]), [address] [place] [address] - [address] , [place] [address]. Please call for questions or concerns. ??? With your PRIMARY CARE DOCTOR (PCP) within 2-3 weeks after discharge. Additional Information documented in this encounter Medications at Time of Discharge cholecalciferol (VITAMIN D-3) 5,000 unit tabletIndications:V itamin D Deficiency Take 1 tablet (5,000 Units total) by mouth every other day meropenem (MERREM) 1,000 mg/110 mLIndications:perfo rated cholecystitis Infuse 110 mL (1,000 mg total) into a venous catheter every 8 (eight) hours for 8 days 0 12/31/19 20 acetaminophen 500 mg capsule Take 2 capsules (1,000 mg total) by mouth every 6 (six) hours as needed for pain 30 tablet 0 02/22/20 20 aspirin 325 mg enteric coated tablet Take 325 mg by mouth daily 02/22/20 20 diltiazem (TIAZAC) 360 mg 24 hr capsule Take 360 mg by mouth daily 02/22/20 20 folic acid (FOLVITE) 1 mg tablet Take 1 mg by mouth daily 02/22/20 20 levalbuterol (XOPENEX) 1.25 mg/3 mL nebulizer solution Take 1.25 mg by nebulization as needed for shortness of breath 06/13/19 22 magnesium oxide (MAG-OX) 400 mg (241.3 mg elemental magnesium) tabletIndications:h ypomagnesemia Take 400 mg by mouth daily 02/22/20 20 metoprolol tartrate (LOPRESSOR) 50 mg immediate release tablet Take 1 tablet (50 mg total) by mouth 2 (two) times a day 60 tablet 11 0 02/22/20 20 nolisyzf-xwcrkam-eu on-lutein tablet Take by mouth 02/21 20 omeprazole (PriLOSEC) 20 mg capsule Take 20 mg by mouth daily 02/22/20 20 ondansetron ODT (ZOFRAN-ODT) 4 mg disintegrating tablet Take 1 tablet (4 mg total) by mouth every 4 (four) hours as needed for nausea or vomiting 20 tablet 0 06/16/19 21 polyethylene glycol (MIRALAX) 17 gram packetIndications:c onstipation Take 17 g by mouth daily 06/16/19 21 QUEtiapine (SEROquel) 25 mg tablet Take 12.5 mg by mouth nightly 02/22/20 20 sodium chloride 0.9% injection Flush drain with 10cc NS bid 5 mL 0 02/22/20 20 terazosin (HYTRIN) 10 mg capsule Take 10 mg by mouth nightly 02/22/20 20 thiamine (VITAMIN B1) 100 mg tabletIndications:T hiamine Deficiency Take 100 mg by mouth every morning 07/31/19 23 documented as of this encounter Ordered Prescriptions Prescription Sig Dispense Quantity Refills Last Filled Start Date End Date metoprolol tartrate (LOPRESSOR) 50 mg immediate release tablet Take 1 tablet (50 mg total) by mouth 2 (two) times a day 60 tablet 11 12/28/2019 0 sodium chloride 0.9% injection Flush drain with 10cc NS bid 5 mL 12/23/2019 0 ondansetron ODT (ZOFRAN-ODT) 4 mg disintegrating tablet Take 1 tablet (4 mg total) by mouth every 4 (four) hours as needed for nausea or vomiting 20 tablet 12/23/2019 1 metoprolol tartrate (LOPRESSOR) 25 mg immediate release tablet Take 1 tablet (25 mg total) by mouth 2 (two) times a day 60 tablet 11 12/23/2019 0 meropenem (MERREM) 1,000 mg/110 mLIndications:perfor ated cholecystitis Infuse 110 mL (1,000 mg total) into a venous catheter every 8 (eight) hours for 8 days 12/23/2019 0 acetaminophen 500 mg capsule Take 2 capsules (1,000 mg total) by mouth every 6 (six) hours as needed for pain 30 tablet 12/23/2019 0 documented in this encounter Discharge Disposition Disposition Code Departure Means Destination Discharge to [facility] documented in this encounter Progress Notes * Mariaa Pereyra LCSW - 12/28/2019 3:06 PM CDT 12/28/19 1504 Discharge Summary Chart reviewed For Medical Necessity Does patient have a planned readmission to hospital planned? No Discharge Disposition SNF, Commercial Insurance, Short term Skilled Specify Facility [facility] Facility Contact Number [phone] Discharge Records Chart Copied Discharge Additional Assistance Does the patient need discharge transport arranged? Yes Has discharge transport been arranged? Yes Details of Transportation [facility] [id number] What day is the transport expected? 12/28/19 What time is the transport expected? 1530 Discharge Transportation Communication Mode of transport has been discussed with the patient/family. All are agreeable to the plan and understand their responsibilities to ensure the safe transfer. No further CM/SW intervention is anticipated at this time. Post Discharge Care Provider Post Discharge Care Plan DC Summary has been faxed to next level of care provider (see Follow Up Providers) loft worker apprentice spoke with Mirna at [facility] and SNF authorization has been approved for 12/27-01/02.Auth number [id number]. Updated patients Raine she remains agreeable to [facility] for rehab. Shared with Raine and patient it is a non- smoking facility. Social Work has coordinated discharge plan. Patient has been accepted to [facility], RN informed to call report to [phone] Social work faxed orders to [phone] Patient, family etc. are aware and are agreeable to plan. Transportation has been arranged via [facility]. Mode of transport has be en discussed with the patient/family, doctors, nurses, and [facility] and all are agreeable to plan and understand their role to ensure the patient's safe transfer. No further social work intervention is anticipated at this time. Patient/family informed that while medical team will do everything possible for Medicare to pay forthe ambulance there is a chance that Medicare will not pay, as Medicare's criteria for ambulances are often stricter than the medical team. Social work informed patient/family that even if Medicare does pay, it may not cover the full cost of the trip as Medicare is now only covering the cost to nearest available facility. Social work informed patient/family that they will be responsible for the remainder of the bill. Patient/family voiced understanding. Mariaa Pereyra LCSW Social Work [phone] * Stephany Chavez PA - 12/28/2019 7:55 AM CDT Hepatobiliary Surgery Daily Progress HPI: Mr. Lloyd Redman is a 69 y.o. year old admitted for perforated Cholecystitis with RUQ abscess extending to abdominal wall. Length of Hospitalization: 10 Post Procedure Day: Percutaneous RUQ abscess drain 12/19 SUBJECTIVE/ INTERVAL HISTORY Pain well controlled. Drain output 30cc. Afebrile Objective Physical Exam Constitutional: Appears comfortable. Lying in bed. No distress. HENT: No nasal cannula nor NGT Eyes: Conjunctivae are normal. Pulmonary/Chest: Effort normal No respiratory distress. No grossly audible wheezes nor rales Abdominal: Soft. No distension. Appropriately tender. Midline wound packed with no surrounding erythema/ drainage/ induration. Drain in RUQ to bulb suction with scant serous output. There is no rebound and no guarding. Musculoskeletal: Normal range of motion. No edema or deformity. Neurological: Alert and oriented to person, place, and time. Skin: Skin is warm and dry. No rash noted. Not diaphoretic. No erythema. Psychiatric: Normal mood and affect. Current Facility-Administered Medications: ??? acetaminophen (TYLENOL) tablet 1,000 mg, 1,000 mg, oral, Q6H PRN ??? aspirin enteric coated tablet 325 mg, 325 mg, oral, Daily, 325 mg at 12/28/19742 ??? dilTIAZem XR (CARDIZEM CD,DILACOR XR) 24 hour capsule 360 mg, 360 mg, oral, Daily, 360 mg at 12/28/19741 ??? enoxaparin (LOVENOX) syringe 40 mg, 40 mg, subcutaneous, Daily-2099, 40 mg at 12/27/192022 ??? folic acid (FOLVITE) tablet 1 mg, 1 mg, oral, Daily, 1 mg at 12/28/19742 ??? levalbuterol (XOPENEX) 1.25 mg/3 mL nebulizer solution 1.25 mg, 1.25 mg, nebulization, Q6H PRN (RT) ??? magnesium oxide (MAG-OX) tablet 400 mg, 400 mg, oral, Daily, 400 mg at 12/28/19742 ??? meropenem (MERREM) 1,000 mg/110 mL in sodium chloride 0.9% (premix) 1,000 mg, 1,000 mg, intravenous, Q8H MONET, Last Rate: 220 mL/hr at 12/28/19742, 1,000 mg at 12/28/19742 ??? metoprolol tartrate (LOPRESSOR) immediate release tablet 50 mg, 50 mg, oral, BID, 50 mg at 12/28/19 0742 ??? ondansetron ODT (ZOFRAN-ODT) disintegrating tablet 4 mg, 4 mg, oral, Q4H PRN ??? pantoprazole DR (PROTONIX) extended release tablet 40 mg, 40 mg, oral, Daily, 40 mg at 12/27/200643 ??? polyethylene glycol (MIRALAX) packet 17 g, 17 g, oral, Daily, 17 g at 12/28/19 0743 ??? QUEtiapine (SEROquel) tablet 12.5 mg, 12.5 mg, oral, Nightly, 12.5 mg at 12/27/192022 ??? sodium chloride 0.9% flush 0.5-20 mL, 0.5-20 mL, intra-catheter, Q8H MONET, 10 mL at 12/25/19 0534 ??? sodium chloride 0.9% flush 0.5-20 mL, 0.5-20 mL, intra-catheter, PRN ??? sodium chloride 0.9% flush 0.5-20 mL, 0.5-20 mL, intra-catheter, Q8H MONET, 10 mL at 12/26/19 0617 ??? sodium chloride 0.9% flush 0.5-20 mL, 0.5-20 mL, intra-catheter, PRN ??? thiamine (VITAMIN B1) tablet 100 mg, 100 mg, oral, Daily, 100 mg at 12/28/1943 Lab/Radiology/Diagnostic Review: Laboratory studies from the past 24 hours were reviewed and significant for Lab Results Component Value Date WBC 5.4 12/20/2019 WBC 5.2 12/20/2019 WBC 5.9 12/18/2019 Lab Results Component Value Date HGB 10.4 (L) 12/20/2019 HGB 9.8 (L) 12/20/2019 HGB 10.3 (L) 12/18/2019 Lab Results Component Value Date HCT 31.5 (L) 12/20/2019 HCT 30.0 (L) 12/20/2019 HCT 30.8 (L) 12/18/2019 Lab Results Component Value Date CREATININE 0.48 (L) 12/20/2019 CREATININE 0.57 (L) 12/20/2019 CREATININE 0.49 (L) 12/18/2019 Lab Results Component Value Date BILITOT 0.2 12/20/2019 BILITOT 0.2 12/20/2019 BILITOT 0.4 12/18/2019 Lab Results Component Value Date ALKPHOS 95 12/20/2019 ALKPHOS 100 12/20/2019 ALKPHOS 99 12/18/2019 Lab Results Component Value Date AST 26 12/20/2019 AST 18 12/20/2019 AST 14 12/18/2019 Lab Results Component Value Date ALT 12 12/20/2019 ALT 10 12/20/2019 ALT 14 12/18/2019 Lab Results Component Value Date MICROBIOLOGY (.) 12/19/2019 Final Report: Abundant Escherichia [...] for this organism, please contact infectious diseases. Susceptibility Escherichia coli INTERPRETATION Ampicillin Resistant Ampicillin with Sulbactam Resistant Cefazolin Resistant Cefepime Resistant Ceftazidime Resistant Ceftriaxone Resistant Ciprofloxacin Resistant Gentamicin Susceptible Meropenem Susceptible Trimethoprim with Sulfamethoxazole Resistant Narrative Recent Radiology studies were reviewed and significant for: RUQ ultrasound 12/20 FINDINGS: ?? Liver: The liver is normal in size. ??The echotexture is normal. ??The echogenicity is normal. There is no surface nodularity. No focal solid lesions are visualized. ?? Gallbladder: The gallbladder is irregular with marked wall thickening. ??There are stones and sludge within the gallbladder. There is a right upper quadrant drain in a pericholecystic collection, with a small amount of perihepatic fluid. ?? Bile Duct: There is no intrahepatic bile duct dilatation. The common duct measures 2 mm, 5 mm in the proximal and mid ducts, respectively. ??The distal common bile duct is obscured by bowel gas. Pancreas: The visualized portions of the head of the pancreas are normal. Impression: ?? Irregular, markedly thick-walled gallbladder containing stones and sludge; pericholecystic collection with drain in place; and small amount of perihepatic fluid. ??These findings are compatible with sequelae of perforated cholecystitis. CT 12/18 Impression: ?? Multiloculated abscess arising from the gallbladder fossa with extension to the subcutaneous tissue of the ventral abdominal wall. Vitals: 24hr Min/Max: Temp Min: 36.4 ??C (97.5 ??F) Max: 37.1 ??C (98.8 ??F) Pulse Min: 76 Max: 104 BP Min: 132/107 Max: 150/109 Resp Min: 16 Max: 18 SpO2 Min: 95 % Max: 98 % Most Recent: Vitals: 12/28/19 0739 BP: (!) 147/103 Pulse: 79 Resp: 18 Temp: SpO2: 97% I/O last 2 completed shifts: In: 220 [IV Piggyback:220] Out: 855 [Urine:825; Drains:30] No intake/output data recorded. Recent Interventions: Percutaneous drainage 12/18 FINDINGS: Images from the procedure revealed a moderate-sized, multiloculated fluid collection in the right abdominal wall, corresponding to the collection seen on prior CT. ??The fluid appeared purulent. ??An approximate volume of 10 cc was drained at the time of the procedure and sent for labs. Impression: ?? Successful image guided right upper quadrant abscess drainage. Assessment/Plan 1. Cholecystitis, RUQ abscess tracking to abdominal wall s/p percutaneous drainage - culture from aspirate growing MDR E. coli. Will complete 10 day course of meropenem through 12/30 - dry dressing changes to previous drain site - flush drain BID - PT/ OT evaluation -Accepted at [facility], awaiting insurance approval. - once strength and conditioning improve will return to discuss cholecystectomy- coordinated with [facility] on 01/03. - SCD's, enoxaparin for DVT ppx (previously on therapeutic lovenox for recurrent Afib with RVR but with fall risk will hold anticoagulation) - continue lab holidays - Disposition planning to [facility] pending insurance approval. LORI Wilson 12/28/20198:01 AM * Hola Weinstein MD - 12/27/2019 7:49 AM CDT Hepatobiliary Surgery Daily Progress HPI: Mr. Lloyd Redman is a 69 y.o. year old admitted for Cholecystitis e' RUQ abscess extending to abdominal wall. Length of Hospitalization: 9 Post Procedure Day: Percutaneous RUQ abscess 12/19 SUBJECTIVE/ INTERVAL HISTORY Pain well controlled. Drain putting out minimum fluid (20cc yesterday). HDS, AF, WBC 5.4. Objective Physical Exam Constitutional: Appears comfortable. Lying in bed. No distress. HENT: No nasal cannula nor NGT Eyes: Conjunctivae are normal. Pulmonary/Chest: Effort normal No respiratory distress. No grossly audible wheezes nor rales Abdominal: Soft. No distension. Appropriately tender. Midline wound packed with no surrounding erythema/ drainage/ induration. Drain in RUQ to bulb suction with scant serous output. There is no rebound and no guarding. Musculoskeletal: Normal range of motion. No edema or deformity. Neurological: Alert and oriented to person, place, and time. Skin: Skin is warm and dry. No rash noted. Not diaphoretic. No erythema. Psychiatric: Normal mood and affect. Current Facility-Administered Medications: ??? acetaminophen (TYLENOL) tablet 1,000 mg, 1,000 mg, oral, Q6H PRN ??? aspirin enteric coated tablet 325 mg, 325 mg, oral, Daily, 325 mg at 12/26/19 1037 ??? dilTIAZem XR (CARDIZEM CD,DILACOR XR) 24 hour capsule 360 mg, 360 mg, oral, Daily, 360 mg at 12/26/19 1037 ??? enoxaparin (LOVENOX) syringe 40 mg, 40 mg, subcutaneous, Daily-2099, 40 mg at 12/26/192024 ??? folic acid (FOLVITE) tablet 1 mg, 1 mg, oral, Daily, 1 mg at 12/26/19 1037 ??? levalbuterol (XOPENEX) 1.25 mg/3 mL nebulizer solution 1.25 mg, 1.25 mg, nebulization, Q6H PRN (RT) ??? magnesium oxide (MAG-OX) tablet 400 mg, 400 mg, oral, Daily, 400 mg at 12/26/19 1037 ??? meropenem (MERREM) 1,000 mg/110 mL in sodium chloride 0.9% (premix) 1,000 mg, 1,000 mg, intravenous, Q8H MONET, Last Rate: 220 mL/hr at 12/26/19 2340, 1,000 mg at 12/26/19 2340 ??? metoprolol tartrate (LOPRESSOR) immediate release tablet 50 mg, 50 mg, oral, BID, 50 mg at 12/26/192024 ??? ondansetron ODT (ZOFRAN-ODT) disintegrating tablet 4 mg, 4 mg, oral, Q4H PRN ??? pantoprazole DR (PROTONIX) extended release tablet 40 mg, 40 mg, oral, Daily, 40 mg at 12/25/200937 ??? polyethylene glycol (MIRALAX) packet 17 g, 17 g, oral, Daily ??? QUEtiapine (SEROquel) tablet 12.5 mg, 12.5 mg, oral, Nightly, 12.5 mg at 12/26/192024 ??? sodium chloride 0.9% flush 0.5-20 mL, 0.5-20 mL, intra-catheter, Q8H MONET, 10 mL at 12/25/19 0534 ??? sodium chloride 0.9% flush 0.5-20 mL, 0.5-20 mL, intra-catheter, PRN ??? sodium chloride 0.9% flush 0.5-20 mL, 0.5-20 mL, intra-catheter, Q8H MONET, 10 mL at 12/26/19 0617 ??? sodium chloride 0.9% flush 0.5-20 mL, 0.5-20 mL, intra-catheter, PRN ??? thiamine (VITAMIN B1) tablet 100 mg, 100 mg, oral, Daily, 100 mg at 12/26/19 1037 Lab/Radiology/Diagnostic Review: Laboratory studies from the past 24 hours were reviewed and significant for Lab Results Component Value Date WBC 5.4 12/20/2019 WBC 5.2 12/20/2019 WBC 5.9 12/18/2019 Lab Results Component Value Date HGB 10.4 (L) 12/20/2019 HGB 9.8 (L) 12/20/2019 HGB 10.3 (L) 12/18/2019 Lab Results Component Value Date HCT 31.5 (L) 12/20/2019 HCT 30.0 (L) 12/20/2019 HCT 30.8 (L) 12/18/2019 Lab Results Component Value Date CREATININE 0.48 (L) 12/20/2019 CREATININE 0.57 (L) 12/20/2019 CREATININE 0.49 (L) 12/18/2019 Lab Results Component Value Date BILITOT 0.2 12/20/2019 BILITOT 0.2 12/20/2019 BILITOT 0.4 12/18/2019 Lab Results Component Value Date ALKPHOS 95 12/20/2019 ALKPHOS 100 12/20/2019 ALKPHOS 99 12/18/2019 Lab Results Component Value Date AST 26 12/20/2019 AST 18 12/20/2019 AST 14 12/18/2019 Lab Results Component Value Date ALT 12 12/20/2019 ALT 10 12/20/2019 ALT 14 12/18/2019 Lab Results Component Value Date MICROBIOLOGY (.) 12/19/2019 Final Report: Abundant Escherichia [...] for this organism, please contact infectious diseases. Susceptibility Escherichia coli INTERPRETATION Ampicillin Resistant Ampicillin with Sulbactam Resistant Cefazolin Resistant Cefepime Resistant Ceftazidime Resistant Ceftriaxone Resistant Ciprofloxacin Resistant Gentamicin Susceptible Meropenem Susceptible Trimethoprim with Sulfamethoxazole Resistant Narrative Recent Radiology studies were reviewed and significant for: RUQ ultrasound 12/20 FINDINGS: ?? Liver: The liver is normal in size. ??The echotexture is normal. ??The echogenicity is normal. There is no surface nodularity. No focal solid lesions are visualized. ?? Gallbladder: The gallbladder is irregular with marked wall thickening. ??There are stones and sludge within the gallbladder. There is a right upper quadrant drain in a pericholecystic collection, with a small amount of perihepatic fluid. ?? Bile Duct: There is no intrahepatic bile duct dilatation. The common duct measures 2 mm, 5 mm in the proximal and mid ducts, respectively. ??The distal common bile duct is obscured by bowel gas. Pancreas: The visualized portions of the head of the pancreas are normal. Impression: ?? Irregular, markedly thick-walled gallbladder containing stones and sludge; pericholecystic collection with drain in place; and small amount of perihepatic fluid. ??These findings are compatible with sequelae of perforated cholecystitis. CT 12/18 Impression: ?? Multiloculated abscess arising from the gallbladder fossa with extension to the subcutaneous tissue of the ventral abdominal wall. Vitals: 24hr Min/Max: Temp Min: 36.4 ??C (97.5 ??F) Max: 36.8 ??C (98.2 ??F) Pulse Min: 66 Max: 90 BP Min: 133/90 Max: 145/74 Resp Min: 17 Max: 18 SpO2 Min: 97 % Max: 100 % Most Recent: Vitals: 12/27/19 0446 BP: 145/74 Pulse: 90 Resp: 18 Temp: 36.7 ??C (98 ??F) SpO2: 100% I/O last 2 completed shifts: In: 2079 [P.O.:1880; IV Piggyback:200] Out: 970 [Urine:950; Drains:20] No intake/output data recorded. Recent Interventions: Percutaneous drainage 12/18 FINDINGS: Images from the procedure revealed a moderate-sized, multiloculated fluid collection in the right abdominal wall, corresponding to the collection seen on prior CT. ??The fluid appeared purulent. ??An approximate volume of 10 cc was drained at the time of the procedure and sent for labs. Impression: ?? Successful image guided right upper quadrant abscess drainage. Assessment/Plan 1. Cholecystitis, RUQ abscess tracking to abdominal wall s/p percutaneous drainage - culture from aspirate growing MDR E. coli. Will complete 10 day course of meropenem through 12/30 - dry dressing changes to previous drain site - flush drain BID - PT/ OT evaluation -Accepted at [facility], awaiting insurance approval. - once strength and conditioning improve will return to discuss cholecystectomy- coordinated with [facility] on 01/03. - SCD's, enoxaparin for DVT ppx (previously on therapeutic lovenox for recurrent Afib with RVR but with fall risk will hold anticoagulation) - continue lab holidays - Disposition planning to [facility] on Saturday (12/27) pending insurance approval. Hola Weinstein MD 12/27/20197:49 AM Cosigned by Eugene Oates MD at 12/28/2019 6:47 AM CDT * Flor Livingston MD PhD - 12/26/2019 8:12 AM CDT Hepatobiliary Surgery Daily Progress HPI: Mr. Lloyd Redman is a 69 y.o. year old admitted for Cholecystitis Length of Hospitalization: 8 Post Procedure Day: Percutaneous RUQ abscess 12/19 SUBJECTIVE/ INTERVAL HISTORY The patient denies uncontrolled pain. He states he feels cold but is otherwise well. Objective Physical Exam Constitutional: Appears comfortable. Lying in bed. No distress. HENT: No nasal cannula nor NGT Eyes: Conjunctivae are normal. Pulmonary/Chest: Effort normal No respiratory distress. No grossly audible wheezes nor rales Abdominal: Soft. No distension. Appropriately tender. Midline wound packed with no surrounding erythema/ drainage/ induration. Drain in RUQ to bulb suction with scant serous output. There is no rebound and no guarding. Musculoskeletal: Normal range of motion. No edema or deformity. Neurological: Alert and oriented to person, place, and time. Skin: Skin is warm and dry. No rash noted. Not diaphoretic. No erythema. Psychiatric: Normal mood and affect. Current Facility-Administered Medications: ??? acetaminophen (TYLENOL) tablet 1,000 mg, 1,000 mg, oral, Q6H PRN ??? aspirin enteric coated tablet 325 mg, 325 mg, oral, Daily, 325 mg at 12/26/19 1037 ??? dilTIAZem XR (CARDIZEM CD,DILACOR XR) 24 hour capsule 360 mg, 360 mg, oral, Daily, 360 mg at 12/26/19 1037 ??? enoxaparin (LOVENOX) syringe 40 mg, 40 mg, subcutaneous, Daily-2099, 40 mg at 12/25/195 ??? folic acid (FOLVITE) tablet 1 mg, 1 mg, oral, Daily, 1 mg at 12/26/19 1037 ??? levalbuterol (XOPENEX) 1.25 mg/3 mL nebulizer solution 1.25 mg, 1.25 mg, nebulization, Q6H PRN (RT) ??? magnesium oxide (MAG-OX) tablet 400 mg, 400 mg, oral, Daily, 400 mg at 12/26/19 1037 ??? meropenem (MERREM) 1,000 mg/110 mL in sodium chloride 0.9% (premix) 1,000 mg, 1,000 mg, intravenous, Q8H MONET, Last Rate: 220 mL/hr at 12/26/19 1708, 1,000 mg at 12/26/19 1708 ??? metoprolol tartrate (LOPRESSOR) immediate release tablet 50 mg, 50 mg, oral, BID, 50 mg at 12/26/19 1037 ??? ondansetron ODT (ZOFRAN-ODT) disintegrating tablet 4 mg, 4 mg, oral, Q4H PRN ??? pantoprazole DR (PROTONIX) extended release tablet 40 mg, 40 mg, oral, Daily, 40 mg at 12/25/200937 ??? polyethylene glycol (MIRALAX) packet 17 g, 17 g, oral, Daily ??? QUEtiapine (SEROquel) tablet 12.5 mg, 12.5 mg, oral, Nightly, 12.5 mg at 12/25/19 2225 ??? sodium chloride 0.9% flush 0.5-20 mL, 0.5-20 mL, intra-catheter, Q8H MONET, 10 mL at 12/25/19 0534 ??? sodium chloride 0.9% flush 0.5-20 mL, 0.5-20 mL, intra-catheter, PRN ??? sodium chloride 0.9% flush 0.5-20 mL, 0.5-20 mL, intra-catheter, Q8H MONET, 10 mL at 12/26/19 0617 ??? sodium chloride 0.9% flush 0.5-20 mL, 0.5-20 mL, intra-catheter, PRN ??? thiamine (VITAMIN B1) tablet 100 mg, 100 mg, oral, Daily, 100 mg at 12/26/19 1037 Lab/Radiology/Diagnostic Review: Laboratory studies from the past 24 hours were reviewed and significant for Lab Results Component Value Date WBC 5.4 12/20/2019 WBC 5.2 12/20/2019 WBC 5.9 12/18/2019 Lab Results Component Value Date HGB 10.4 (L) 12/20/2019 HGB 9.8 (L) 12/20/2019 HGB 10.3 (L) 12/18/2019 Lab Results Component Value Date HCT 31.5 (L) 12/20/2019 HCT 30.0 (L) 12/20/2019 HCT 30.8 (L) 12/18/2019 Lab Results Component Value Date CREATININE 0.48 (L) 12/20/2019 CREATININE 0.57 (L) 12/20/2019 CREATININE 0.49 (L) 12/18/2019 Lab Results Component Value Date BILITOT 0.2 12/20/2019 BILITOT 0.2 12/20/2019 BILITOT 0.4 12/18/2019 Lab Results Component Value Date ALKPHOS 95 12/20/2019 ALKPHOS 100 12/20/2019 ALKPHOS 99 12/18/2019 Lab Results Component Value Date AST 26 12/20/2019 AST 18 12/20/2019 AST 14 12/18/2019 Lab Results Component Value Date ALT 12 12/20/2019 ALT 10 12/20/2019 ALT 14 12/18/2019 Lab Results Component Value Date MICROBIOLOGY (.) 12/19/2019 Final Report: Abundant Escherichia [...] for this organism, please contact infectious diseases. Susceptibility Escherichia coli INTERPRETATION Ampicillin Resistant Ampicillin with Sulbactam Resistant Cefazolin Resistant Cefepime Resistant Ceftazidime Resistant Ceftriaxone Resistant Ciprofloxacin Resistant Gentamicin Susceptible Meropenem Susceptible Trimethoprim with Sulfamethoxazole Resistant Narrative Recent Radiology studies were reviewed and significant for: RUQ ultrasound 12/20 FINDINGS: ?? Liver: The liver is normal in size. ??The echotexture is normal. ??The echogenicity is normal. There is no surface nodularity. No focal solid lesions are visualized. ?? Gallbladder: The gallbladder is irregular with marked wall thickening. ??There are stones and sludge within the gallbladder. There is a right upper quadrant drain in a pericholecystic collection, with a small amount of perihepatic fluid. ?? Bile Duct: There is no intrahepatic bile duct dilatation. The common duct measures 2 mm, 5 mm in the proximal and mid ducts, respectively. ??The distal common bile duct is obscured by bowel gas. Pancreas: The visualized portions of the head of the pancreas are normal. Impression: ?? Irregular, markedly thick-walled gallbladder containing stones and sludge; pericholecystic collection with drain in place; and small amount of perihepatic fluid. ??These findings are compatible with sequelae of perforated cholecystitis. CT 12/18 Impression: ?? Multiloculated abscess arising from the gallbladder fossa with extension to the subcutaneous tissue of the ventral abdominal wall. Vitals: 24hr Min/Max: Temp Min: 36.2 ??C (97.2 ??F) Max: 36.8 ??C (98.2 ??F) Pulse Min: 66 Max: 98 BP Min: 133/90 Max: 145/85 Resp Min: 18 Max: 18 SpO2 Min: 97 % Max: 98 % Most Recent: Vitals: 12/26/19 1700 BP: 133/90 Pulse: 77 Resp: 18 Temp: 36.8 ??C (98.2 ??F) SpO2: 97% I/O last 2 completed shifts: In: 1600 [P.O.:1400; IV Piggyback:200] Out: 1005 [Urine:975; Drains:30] I/O this shift: In: 480 [P.O.:480] Out: - Recent Interventions: Percutaneous drainage 12/18 FINDINGS: Images from the procedure revealed a moderate-sized, multiloculated fluid collection in the right abdominal wall, corresponding to the collection seen on prior CT. ??The fluid appeared purulent. ??An approximate volume of 10 cc was drained at the time of the procedure and sent for labs. Impression: ?? Successful image guided right upper quadrant abscess drainage. Assessment/Plan 1. Cholecystitis, RUQ abscess tracking to abdominal wall s/p percutaneous drainage - culture from aspirate growing MDR E. coli. Will complete 10 day course of meropenem through 12/30 - dry dressing changes to previous drain site - flush drain BID - PT/ OT evaluation -Accepted at [facility], awaiting insurance approval. - once strength and conditioning improve will return to discuss cholecystectomy- coordinated with [facility] on 01/03. - SCD's, enoxaparin for DVT ppx (previously on therapeutic lovenox for recurrent Afib with RVR but with fall risk will hold anticoagulation) - continue lab holidays Flor Livingston MD PhD 12/26/20198:12 PM Cosigned by Eugene Oates MD at 12/28/2019 6:47 AM CDT * Zhao Zapien, RD - 12/25/2019 5:16 PM CDT Nutrition Screen Note Pt. Screened for nutritional assessment secondary to LOS Past Medical History: Diagnosis Date ??? Atrial fibrillation (CMS/HCC) ??? BPH (benign prostatic hyperplasia) ??? CHF (congestive heart failure) (CMS/HCC) ??? Cholecystitis ??? GERD (gastroesophageal reflux disease) ??? Hyperlipidemia ??? Hypertension ??? TIA (transient ischemic attack) Past Surgical History: Procedure Laterality Date ??? FLUID DRAIN SOFT TISSUE N/A 12/19/2019 Anthropometrics Weight: 78.4 kg (172 lb 14.4 oz) Admission Weight : 77.1 kg Weight Change: 1.63 kg (3.60 lbs) IBW/kg (Calculated) : 78 kg Height: 180.3 cm (5' 11 ) Weight in (lb) to have BMI = 25: 178.9 BMI (Calculated): 24.1 Dietary Orders (From admission, onward) Start Ordered 12/25/19 0001 NPO Diet Diet effective midnight 12/24/19 1438 12/23/19 1700 Oral Nutrition Supplements Select Supplement: Ensure Clear - Apple, VARY/multiple Flavor; Quantity (# of cans): 1 can All Meals Question Answer Comment Select Supplement: Ensure Clear - Apple Select Supplement: VARY/multiple Flavor Quantity (# of cans): 1 can 12/23/19 1355 Assessment / Impression: Pt report good appetite when he is allowed to eat. No known weight changes. Denies any previous restrictions in diet or problematic foods. Has had supplements before and prefers the clear. Denies any chewing, swallowing or GI issues. Appears well nourished and able to meet needs on current plan. Expect diet to resume soon. Will continue to follow. Zhao Zapien RD LD CDE [phone]. Weekends [phone] * Stephany Chavez PA - 12/25/2019 5:46 AM CDT Hepatobiliary Surgery Daily Progress HPI: Mr. Lloyd Redman is a 69 y.o. year old admitted for Cholecystitis Length of Hospitalization: 7 Post Procedure Day: Percutaneous RUQ abscess 12/19 SUBJECTIVE/ INTERVAL HISTORY Scheduled for drain evaluation this morning Objective Physical Exam Constitutional: Appears comfortable. Lying in bed. No distress. HENT: No nasal cannula nor NGT Eyes: Conjunctivae are normal. Pulmonary/Chest: Effort normal No respiratory distress. No grossly audible wheezes nor rales Abdominal: Soft. No distension. Appropriately tender. Midline wound packed with no surrounding erythema/ drainage/ induration. Drain in RUQ to bulb suction with scant serous output. There is no rebound and no guarding. Musculoskeletal: Normal range of motion. No edema or deformity. Neurological: Alert and oriented to person, place, and time. Skin: Skin is warm and dry. No rash noted. Not diaphoretic. No erythema. Psychiatric: Normal mood and affect. Current Facility-Administered Medications: ??? acetaminophen (TYLENOL) tablet 1,000 mg, 1,000 mg, oral, Q6H PRN ??? aspirin enteric coated tablet 325 mg, 325 mg, oral, Daily, 325 mg at 12/24/19822 ??? dilTIAZem XR (CARDIZEM CD,DILACOR XR) 24 hour capsule 240 mg, 240 mg, oral, Daily, 240 mg at 12/24/19822 ??? enoxaparin (LOVENOX) syringe 40 mg, 40 mg, subcutaneous, Daily-2099, 40 mg at 12/24/192126 ??? folic acid (FOLVITE) tablet 1 mg, 1 mg, oral, Daily, 1 mg at 12/24/19822 ??? levalbuterol (XOPENEX) 1.25 mg/3 mL nebulizer solution 1.25 mg, 1.25 mg, nebulization, Q6H PRN (RT) ??? magnesium oxide (MAG-OX) tablet 400 mg, 400 mg, oral, Daily, 400 mg at 12/24/19 0822 ??? meropenem (MERREM) 1,000 mg/110 mL in sodium chloride 0.9% (premix) 1,000 mg, 1,000 mg, intravenous, Q8H MONET, Last Rate: 220 mL/hr at 12/24/19 2347, 1,000 mg at 12/24/19 2347 ??? metoprolol tartrate (LOPRESSOR) immediate release tablet 25 mg, 25 mg, oral, BID, 25 mg at 12/24/192124 ??? ondansetron ODT (ZOFRAN-ODT) disintegrating tablet 4 mg, 4 mg, oral, Q4H PRN ??? pantoprazole DR (PROTONIX) extended release tablet 40 mg, 40 mg, oral, Daily, 40 mg at ??? polyethylene glycol (MIRALAX) packet 17 g, 17 g, oral, Daily ??? QUEtiapine (SEROquel) tablet 12.5 mg, 12.5 mg, oral, Nightly, 12.5 mg at 12/24/192125 ??? sodium chloride 0.9% flush 0.5-20 mL, 0.5-20 mL, intra-catheter, Q8H MONET, 10 mL at 12/25/19 0534 ??? sodium chloride 0.9% flush 0.5-20 mL, 0.5-20 mL, intra-catheter, PRN ??? sodium chloride 0.9% flush 0.5-20 mL, 0.5-20 mL, intra-catheter, Q8H MONET, 10 mL at 12/24/19 0635 ??? sodium chloride 0.9% flush 0.5-20 mL, 0.5-20 mL, intra-catheter, PRN ??? thiamine (VITAMIN B1) tablet 100 mg, 100 mg, oral, Daily, 100 mg at 12/24/19 0823 Lab/Radiology/Diagnostic Review: Laboratory studies from the past 24 hours were reviewed and significant for Lab Results Component Value Date WBC 5.4 12/20/2019 WBC 5.2 12/20/2019 WBC 5.9 12/18/2019 Lab Results Component Value Date HGB 10.4 (L) 12/20/2019 HGB 9.8 (L) 12/20/2019 HGB 10.3 (L) 12/18/2019 Lab Results Component Value Date HCT 31.5 (L) 12/20/2019 HCT 30.0 (L) 12/20/2019 HCT 30.8 (L) 12/18/2019 Lab Results Component Value Date CREATININE 0.48 (L) 12/20/2019 CREATININE 0.57 (L) 12/20/2019 CREATININE 0.49 (L) 12/18/2019 Lab Results Component Value Date BILITOT 0.2 12/20/2019 BILITOT 0.2 12/20/2019 BILITOT 0.4 12/18/2019 Lab Results Component Value Date ALKPHOS 95 12/20/2019 ALKPHOS 100 12/20/2019 ALKPHOS 99 12/18/2019 Lab Results Component Value Date AST 26 12/20/2019 AST 18 12/20/2019 AST 14 12/18/2019 Lab Results Component Value Date ALT 12 12/20/2019 ALT 10 12/20/2019 ALT 14 12/18/2019 Lab Results Component Value Date MICROBIOLOGY (.) 12/19/2019 Final Report: Abundant Escherichia [...] for this organism, please contact infectious diseases. Susceptibility Escherichia coli INTERPRETATION Ampicillin Resistant Ampicillin with Sulbactam Resistant Cefazolin Resistant Cefepime Resistant Ceftazidime Resistant Ceftriaxone Resistant Ciprofloxacin Resistant Gentamicin Susceptible Meropenem Susceptible Trimethoprim with Sulfamethoxazole Resistant Narrative Recent Radiology studies were reviewed and significant for: RUQ ultrasound 12/20 FINDINGS: ?? Liver: The liver is normal in size. ??The echotexture is normal. ??The echogenicity is normal. There is no surface nodularity. No focal solid lesions are visualized. ?? Gallbladder: The gallbladder is irregular with marked wall thickening. ??There are stones and sludge within the gallbladder. There is a right upper quadrant drain in a pericholecystic collection, with a small amount of perihepatic fluid. ?? Bile Duct: There is no intrahepatic bile duct dilatation. The common duct measures 2 mm, 5 mm in the proximal and mid ducts, respectively. ??The distal common bile duct is obscured by bowel gas. Pancreas: The visualized portions of the head of the pancreas are normal. Impression: ?? Irregular, markedly thick-walled gallbladder containing stones and sludge; pericholecystic collection with drain in place; and small amount of perihepatic fluid. ??These findings are compatible with sequelae of perforated cholecystitis. CT 12/18 Impression: ?? Multiloculated abscess arising from the gallbladder fossa with extension to the subcutaneous tissue of the ventral abdominal wall. Vitals: 24hr Min/Max: Temp Min: 36.5 ??C (97.7 ??F) Max: 36.9 ??C (98.4 ??F) Pulse Min: 74 Max: 105 BP Min: 127/87 Max: 149/100 Resp Min: 16 Max: 18 SpO2 Min: 98 % Max: 100 % Most Recent: Vitals: 12/25/19 0230 BP: 145/98 Pulse: 88 Resp: 16 Temp: 36.6 ??C (97.9 ??F) SpO2: 98% I/O last 2 completed shifts: In: 0 Out: 320 [Urine:300; Drains:20] I/O this shift: In: 0 Out: 90 [Urine:100] Recent Interventions: Percutaneous drainage 12/18 FINDINGS: Images from the procedure revealed a moderate-sized, multiloculated fluid collection in the right abdominal wall, corresponding to the collection seen on prior CT. ??The fluid appeared purulent. ??An approximate volume of 10 cc was drained at the time of the procedure and sent for labs. Impression: ?? Successful image guided right upper quadrant abscess drainage. Assessment/Plan 1. Cholecystitis, RUQ abscess tracking to abdominal wall s/p percutaneous drainage - culture from aspirate growing MDR E. coli. Will complete 10 day course of meropenem through 12/30 - dry dressing changes to previous drain site - flush drain BID - PT/ OT evaluation -Accepted at [facility], awaiting insurance approval. - once strength and conditioning improve will return to discuss cholecystectomy- coordinated with [facility] on 01/03. - SCD's, enoxaparin for DVT ppx (previously on therapeutic lovenox for recurrent Afib with RVR but with fall risk will hold anticoagulation) LORI Wilson :47 AM * Mily Light DPT - 12/24/2019 4:11 PM CDT Physical Therapy As supervising therapist, I agree with all information documented by PT student Bri Xin * Shayla Cummings PA - 12/24/2019 12:27 PM CDT Images from the original note were not included. Radiology Progress Note 69 yo M found to have gall bladder fossa abscess extending through abdominal wall. Percutaneous drain placed by IR on 12/18. Interval History: Decreased drain output. Upcoming SNF discharge. Afebrile. Exam: Blood pressure 128/85, pulse 97, temperature 36.5 ??C (97.7 ??F), temperature source Oral, resp. rate 18, height 180.3 cm (5' 11 ), weight 76.8 kg (169 lb 4.8 oz), SpO2 99 %. Gen: NAD, A&Ox3 CVR: non labored breathing, regular respiratory rate. Abd: NTTP around drain site, no erythema or leakage. Thin yellow drainage in suction bulb. Ext: Warm and well perfused. Drain: #[address] RUQ [address] 12/18: 65 (12/18), 32 (12/19), 10 (12/20), 5 (12/21), -20 (12/22) - cloudy serousdrainage, bulb to suction Fluid Cx: abundant E. coli Labs: Hematology Lab History Some values may be hidden. Unless noted otherwise, only the newest values recorded on each date aredisplayed. Labs - Hematology Latest Ref Range 12/18/19 12/20/19 WBC 3.8 - 9.9 K/cumm 5.9 5.4 Total Hb, POC 13.0 - 17.5 g/dL 10.3 (A) 10.4 (A) Hct 38.9 - 50.3 % 30.8 (A) 31.5 (A) Plt 150 - 400 K/cumm 251 266 Some values recorded on this date have been omitted. Some abnormal values recorded on this date have been omitted. (A) Abnormal value Assessment and Plan: Gallbladder fossa and abdominal wall abscess s/p drain placement 12/18. Good output so far. - continue flushes 10ml NS BID - continue to monitor daily output. Has had decreased output over the last few days. Discussion with [facility] attending, recommend drain check 12/24. Will discuss with primary team. - continue to follow clinical status of patient - IR will follow while inpatient. Upcoming discharge to SNF. Will discuss follow up with attending and arrange follow up. LORI Burrows-C Interventional Radiology pager until 3 PM IR call pager M-F after 3 PM or on weekends If the patient does not already have a follow-up appointment arranged, please call the [facility] front clerk at between 7:30 AM and 4:00 PM. * Donavan Selby MD - 12/24/2019 9:27 AM CDT Hepatobiliary Surgery Daily Progress HPI: Mr. Lloyd Redman is a 69 y.o. year old admitted for Cholecystitis Length of Hospitalization: 6 Post Procedure Day: Percutaneous RUQ abscess 12/19 SUBJECTIVE/ INTERVAL HISTORY NAEON, VSS. Lab holiday. Continue ABX until 12/30. Afebrile Denies uncontrolled pain, nausea Objective Physical Exam Constitutional: Appears comfortable. Lying in bed. No distress. HENT: No nasal cannula nor NGT Eyes: Conjunctivae are normal. Pulmonary/Chest: Effort normal No respiratory distress. No grossly audible wheezes nor rales Abdominal: Soft. No distension. Appropriately tender. Midline wound packed with no surrounding erythema/ drainage/ induration. Drain in RUQ to bulb suction with purulent output. There is no rebound and no guarding. Musculoskeletal: Normal range of motion. No edema or deformity. Neurological: Alert and oriented to person, place, and time. Skin: Skin is warm and dry. No rash noted. Not diaphoretic. No erythema. Psychiatric: Normal mood and affect. Current Facility-Administered Medications: ??? acetaminophen (TYLENOL) tablet 1,000 mg, 1,000 mg, oral, Q6H PRN ??? aspirin enteric coated tablet 325 mg, 325 mg, oral, Daily, 325 mg at 12/24/19822 ??? dilTIAZem XR (CARDIZEM CD,DILACOR XR) 24 hour capsule 240 mg, 240 mg, oral, Daily, 240 mg at 12/24/19822 ??? enoxaparin (LOVENOX) syringe 40 mg, 40 mg, subcutaneous, Daily-2100, 40 mg at 12/23/192021 ??? folic acid (FOLVITE) tablet 1 mg, 1 mg, oral, Daily, 1 mg at 12/24/19822 ??? levalbuterol (XOPENEX) 1.25 mg/3 mL nebulizer solution 1.25 mg, 1.25 mg, nebulization, Q6H PRN (RT) ??? magnesium oxide (MAG-OX) tablet 400 mg, 400 mg, oral, Daily, 400 mg at 12/24/19821 ??? meropenem (MERREM) 1,000 mg/110 mL in sodium chloride 0.9% (premix) 1,000 mg, 1,000 mg, intravenous, Q8H MONET, Last Rate: 220 mL/hr at 12/24/19809, 1,000 mg at 12/24/19809 ??? metoprolol tartrate (LOPRESSOR) immediate release tablet 25 mg, 25 mg, oral, BID, 25 mg at 12/24/19821 ??? ondansetron ODT (ZOFRAN-ODT) disintegrating tablet 4 mg, 4 mg, oral, Q4H PRN ??? pantoprazole DR (PROTONIX) extended release tablet 40 mg, 40 mg, oral, Daily, 40 mg at ??? polyethylene glycol (MIRALAX) packet 17 g, 17 g, oral, Daily ??? QUEtiapine (SEROquel) tablet 12.5 mg, 12.5 mg, oral, Nightly, 12.5 mg at 12/23/192022 ??? sodium chloride 0.9% flush 0.5-20 mL, 0.5-20 mL, intra-catheter, Q8H MONET, 10 mL at 12/23/192024 ??? sodium chloride 0.9% flush 0.5-20 mL, 0.5-20 mL, intra-catheter, PRN ??? sodium chloride 0.9% flush 0.5-20 mL, 0.5-20 mL, intra-catheter, Q8H MONET, 10 mL at 12/24/19 0635 ??? sodium chloride 0.9% flush 0.5-20 mL, 0.5-20 mL, intra-catheter, PRN ??? thiamine (VITAMIN B1) tablet 100 mg, 100 mg, oral, Daily, 100 mg at 12/24/19 0823 Lab/Radiology/Diagnostic Review: Laboratory studies from the past 24 hours were reviewed and significant for Lab Results Component Value Date WBC 5.4 12/20/2019 WBC 5.2 12/20/2019 WBC 5.9 12/18/2019 Lab Results Component Value Date HGB 10.4 (L) 12/20/2019 HGB 9.8 (L) 12/20/2019 HGB 10.3 (L) 12/18/2019 Lab Results Component Value Date HCT 31.5 (L) 12/20/2019 HCT 30.0 (L) 12/20/2019 HCT 30.8 (L) 12/18/2019 Lab Results Component Value Date CREATININE 0.48 (L) 12/20/2019 CREATININE 0.57 (L) 12/20/2019 CREATININE 0.49 (L) 12/18/2019 Lab Results Component Value Date BILITOT 0.2 12/20/2019 BILITOT 0.2 12/20/2019 BILITOT 0.4 12/18/2019 Lab Results Component Value Date ALKPHOS 95 12/20/2019 ALKPHOS 100 12/20/2019 ALKPHOS 99 12/18/2019 Lab Results Component Value Date AST 26 12/20/2019 AST 18 12/20/2019 AST 14 12/18/2019 Lab Results Component Value Date ALT 12 12/20/2019 ALT 10 12/20/2019 ALT 14 12/18/2019 Lab Results Component Value Date MICROBIOLOGY (.) 12/19/2019 Final Report: Abundant Escherichia [...] for this organism, please contact infectious diseases. Susceptibility Escherichia coli INTERPRETATION Ampicillin Resistant Ampicillin with Sulbactam Resistant Cefazolin Resistant Cefepime Resistant Ceftazidime Resistant Ceftriaxone Resistant Ciprofloxacin Resistant Gentamicin Susceptible Meropenem Susceptible Trimethoprim with Sulfamethoxazole Resistant Narrative Recent Radiology studies were reviewed and significant for: RUQ ultrasound 12/20 FINDINGS: ?? Liver: The liver is normal in size. ??The echotexture is normal. ??The echogenicity is normal. There is no surface nodularity. No focal solid lesions are visualized. ?? Gallbladder: The gallbladder is irregular with marked wall thickening. ??There are stones and sludge within the gallbladder. There is a right upper quadrant drain in a pericholecystic collection, with a small amount of perihepatic fluid. ?? Bile Duct: There is no intrahepatic bile duct dilatation. The common duct measures 2 mm, 5 mm in the proximal and mid ducts, respectively. ??The distal common bile duct is obscured by bowel gas. Pancreas: The visualized portions of the head of the pancreas are normal. Impression: ?? Irregular, markedly thick-walled gallbladder containing stones and sludge; pericholecystic collection with drain in place; and small amount of perihepatic fluid. ??These findings are compatible with sequelae of perforated cholecystitis. CT 12/18 Impression: ?? Multiloculated abscess arising from the gallbladder fossa with extension to the subcutaneous tissue of the ventral abdominal wall. Vitals: 24hr Min/Max: Temp Min: 36.6 ??C (97.9 ??F) Max: 36.9 ??C (98.4 ??F) Pulse Min: 89 Max: 98 BP Min: 131/82 Max: 149/100 Resp Min: 18 Max: 18 SpO2 Min: 97 % Max: 100 % Most Recent: Vitals: 12/24/19 0759 BP: 149/100 Pulse: 91 Resp: 18 Temp: 36.6 ??C (97.9 ??F) SpO2: 98% I/O last 2 completed shifts: In: 0 Out: 480 [Urine:500] I/O this shift: In: - Out: 150 [Urine:150] Recent Interventions: Percutaneous drainage 12/18 FINDINGS: Images from the procedure revealed a moderate-sized, multiloculated fluid collection in the right abdominal wall, corresponding to the collection seen on prior CT. ??The fluid appeared purulent. ??An approximate volume of 10 cc was drained at the time of the procedure and sent for labs. Impression: ?? Successful image guided right upper quadrant abscess drainage. Assessment/Plan 1. Cholecystitis, RUQ abscess tracking to abdominal wall s/p percutaneous drainage - culture from aspirate growing MDR E. coli. Will complete 10 day course of meropenem through 12/30 - dry dressing changes to previous drain site - flush drain BID - PT/ OT evaluation -Accepted at [facility] [address], awaiting insurance approval. - once strength and conditioning improve will return to discuss cholecystectomy- coordinated with [facility] on 01/03. - SCD's, enoxaparin for DVT ppx (previously on therapeutic lovenox for recurrent Afib with RVR but with fall risk will hold anticoagulation) Donavan Selby MD 12/24/20199:27 AM Cosigned by Eugene Oates MD at 12/24/2019 1:04 PM CDT * Stephany Chavez PA - 12/23/2019 6:00 AM CDT Hepatobiliary Surgery Daily Progress HPI: Mr. Lloyd Redman is a 69 y.o. year old admitted for Cholecystitis Length of Hospitalization: 5 Post Procedure Day: Percutaneous RUQ abscess 12/19 SUBJECTIVE/ INTERVAL HISTORY Drain output decreased Afebrile Denies uncontrolled pain, nausea Objective Physical Exam Constitutional: Appears comfortable. Lying in bed. No distress. HENT: No nasal cannula nor NGT Eyes: Conjunctivae are normal. Pulmonary/Chest: Effort normal No respiratory distress. No grossly audible wheezes nor rales Abdominal: Soft. No distension. Appropriately tender. Midline wound packed with no surrounding erythema/ drainage/ induration. Drain in RUQ to bulb suction with purulent output. There is no rebound and no guarding. Musculoskeletal: Normal range of motion. No edema or deformity. Neurological: Alert and oriented to person, place, and time. Skin: Skin is warm and dry. No rash noted. Not diaphoretic. No erythema. Psychiatric: Normal mood and affect. Current Facility-Administered Medications: ??? acetaminophen (TYLENOL) tablet 1,000 mg, 1,000 mg, oral, Q6H PRN ??? aspirin enteric coated tablet 325 mg, 325 mg, oral, Daily, 325 mg at 12/22/19824 ??? dilTIAZem XR (CARDIZEM CD,DILACOR XR) 24 hour capsule 240 mg, 240 mg, oral, Daily, 240 mg at 12/22/19824 ??? enoxaparin (LOVENOX) syringe 40 mg, 40 mg, subcutaneous, Daily-2100, 40 mg at 12/22/192026 ??? folic acid (FOLVITE) tablet 1 mg, 1 mg, oral, Daily, 1 mg at 12/22/19824 ??? levalbuterol (XOPENEX) 1.25 mg/3 mL nebulizer solution 1.25 mg, 1.25 mg, nebulization, Q6H PRN (RT) ??? magnesium oxide (MAG-OX) tablet 400 mg, 400 mg, oral, Daily, 400 mg at 12/22/19825 ??? meropenem (MERREM) 1,000 mg/110 mL in sodium chloride 0.9% (premix) 1,000 mg, 1,000 mg, intravenous, Q8H MONET, Last Rate: 220 mL/hr at 12/23/19 0035, 1,000 mg at 12/23/19 0035 ??? metoprolol tartrate (LOPRESSOR) immediate release tablet 25 mg, 25 mg, oral, BID, 25 mg at 12/22/192027 ??? ondansetron ODT (ZOFRAN-ODT) disintegrating tablet 4 mg, 4 mg, oral, Q4H PRN ??? pantoprazole DR (PROTONIX) extended release tablet 40 mg, 40 mg, oral, Daily, 40 mg at ??? polyethylene glycol (MIRALAX) packet 17 g, 17 g, oral, Daily ??? QUEtiapine (SEROquel) tablet 12.5 mg, 12.5 mg, oral, Nightly, 12.5 mg at 09/15/20 2027 ??? sodium chloride 0.9% flush 0.5-20 mL, 0.5-20 mL, intra-catheter, Q8H MONET, 10 mL at 12/21/190 ??? sodium chloride 0.9% flush 0.5-20 mL, 0.5-20 mL, intra-catheter, PRN ??? sodium chloride 0.9% flush 0.5-20 mL, 0.5-20 mL, intra-catheter, Q8H MONET, 10 mL at 12/22/192033 ??? sodium chloride 0.9% flush 0.5-20 mL, 0.5-20 mL, intra-catheter, PRN ??? thiamine (VITAMIN B1) tablet 100 mg, 100 mg, oral, Daily, 100 mg at 12/22/19 0824 Lab/Radiology/Diagnostic Review: Laboratory studies from the past 24 hours were reviewed and significant for Lab Results Component Value Date WBC 5.4 12/20/2019 WBC 5.2 12/20/2019 WBC 5.9 12/18/2019 Lab Results Component Value Date HGB 10.4 (L) 12/20/2019 HGB 9.8 (L) 12/20/2019 HGB 10.3 (L) 12/18/2019 Lab Results Component Value Date HCT 31.5 (L) 12/20/2019 HCT 30.0 (L) 12/20/2019 HCT 30.8 (L) 12/18/2019 Lab Results Component Value Date CREATININE 0.48 (L) 12/20/2019 CREATININE 0.57 (L) 12/20/2019 CREATININE 0.49 (L) 12/18/2019 Lab Results Component Value Date BILITOT 0.2 12/20/2019 BILITOT 0.2 12/20/2019 BILITOT 0.4 12/18/2019 Lab Results Component Value Date ALKPHOS 95 12/20/2019 ALKPHOS 100 12/20/2019 ALKPHOS 99 12/18/2019 Lab Results Component Value Date AST 26 12/20/2019 AST 18 12/20/2019 AST 14 12/18/2019 Lab Results Component Value Date ALT 12 12/20/2019 ALT 10 12/20/2019 ALT 14 12/18/2019 Lab Results Component Value Date MICROBIOLOGY (.) 12/19/2019 Final Report: Abundant Escherichia [...] for this organism, please contact infectious diseases. Susceptibility Escherichia coli INTERPRETATION Ampicillin Resistant Ampicillin with Sulbactam Resistant Cefazolin Resistant Cefepime Resistant Ceftazidime Resistant Ceftriaxone Resistant Ciprofloxacin Resistant Gentamicin Susceptible Meropenem Susceptible Trimethoprim with Sulfamethoxazole Resistant Narrative Recent Radiology studies were reviewed and significant for: RUQ ultrasound 12/20 FINDINGS: ?? Liver: The liver is normal in size. ??The echotexture is normal. ??The echogenicity is normal. There is no surface nodularity. No focal solid lesions are visualized. ?? Gallbladder: The gallbladder is irregular with marked wall thickening. ??There are stones and sludge within the gallbladder. There is a right upper quadrant drain in a pericholecystic collection, with a small amount of perihepatic fluid. ?? Bile Duct: There is no intrahepatic bile duct dilatation. The common duct measures 2 mm, 5 mm in the proximal and mid ducts, respectively. ??The distal common bile duct is obscured by bowel gas. Pancreas: The visualized portions of the head of the pancreas are normal. Impression: ?? Irregular, markedly thick-walled gallbladder containing stones and sludge; pericholecystic collection with drain in place; and small amount of perihepatic fluid. ??These findings are compatible with sequelae of perforated cholecystitis. CT 12/18 Impression: ?? Multiloculated abscess arising from the gallbladder fossa with extension to the subcutaneous tissue of the ventral abdominal wall. Vitals: 24hr Min/Max: Temp Min: 36.6 ??C (97.9 ??F) Max: 37.1 ??C (98.8 ??F) Pulse Min: 62 Max: 118 BP Min: 131/95 Max: 157/100 Resp Min: 18 Max: 18 SpO2 Min: 95 % Max: 99 % Most Recent: Vitals: 12/23/19 0405 BP: 149/86 Pulse: 83 Resp: 18 Temp: 36.7 ??C (98.1 ??F) SpO2: 96% I/O last 2 completed shifts: In: 0 Out: 430 [Urine:400; Drains:30] I/O this shift: In: 30 [P.O.:30] Out: 345 [Urine:350] Recent Interventions: Percutaneous drainage 12/18 FINDINGS: Images from the procedure revealed a moderate-sized, multiloculated fluid collection in the right abdominal wall, corresponding to the collection seen on prior CT. ??The fluid appeared purulent. ??An approximate volume of 10 cc was drained at the time of the procedure and sent for labs. Impression: ?? Successful image guided right upper quadrant abscess drainage. Assessment/Plan 1. Cholecystitis, RUQ abscess tracking to abdominal wall s/p percutaneous drainage - culture from aspirate growing MDR E. coli. Will complete 10 day course of meropenem through 12/30 - dry dressing changes to previous drain site - flush drain BID - PT/ OT evaluation - SW consult for placement assistance as his requests alternate facility - once strength and conditioning improve will return to discuss cholecystectomy- coordinated with [facility] on 01/03. - SCD's, enoxaparin for DVT ppx (previously on therapeutic lovenox for recurrent Afib with RVR but with fall risk will hold anticoagulation) LORI Wilson 12/23/20196:00 AM * Miladys Victor OT - 12/22/2019 11:43 AM CDT Occupational Therapy As supervising Occupational Therapist, I agree with and cosign all documentation provided on this date by Taryn Erazo (Occupational Therapy Student). * Sae Otero MD - 12/22/2019 7:40 AM CDT Radiology Progress Note 69 yo M found to have gall bladder fossa abscess extending through abdominal wall. Percutaneous drain placed by IR on 12/18. Interval History: Seen this AM. No drain related complaints. Exam: Gen: NAD, A&Ox3 CVR: non labored breathing, regular respiratory rate. Abd: NTTP around drain site, no erythema or leakage. Thin yellow drainage in suction bulb. Ext: Warm and well perfused. Output by Drain (mL) 12/20/19 0700 - 12/20/19185812/20/190 - 12/21/19 0659 12/21/19 07 - 12/21/19185812/21/191899 - 12/22/19 0659 12/22/19 07 - 12/22/19 0931 Closed/Suction/Open Drain 1 Right RUQ Bulb 10 Fr. 32 0 -10 20 Fluid Cx: abundant E. coli Assessment and Plan: Gallbladder fossa and abdominal wall abscess s/p drain placement 12/18. Good output so far. - continue flushes as ordered - continue to monitor daily output - will plan to see patient in 7-10 days - IR will follow while inpatient Page IR with questions: [phone] Byron Begum MD I have seen and examined the patient. I agree with the findings and plan of care as documented in the resident/fellow's note. * Stephany Chavez PA - 12/22/2019 5:49 AM CDT Hepatobiliary Surgery Daily Progress HPI: Mr. Lloyd Redman is a 69 y.o. year old admitted for Cholecystitis Length of Hospitalization: 4 Post Procedure Day: Percutaneous RUQ abscess 12/19 SUBJECTIVE/ INTERVAL HISTORY Aspirate cx growing MDR E. Coli Drain output ~10cc Afebrile Denies uncontrolled pain, nausea Objective Physical Exam Constitutional: Appears comfortable. Lying in bed. No distress. HENT: No nasal cannula nor NGT Eyes: Conjunctivae are normal. Pulmonary/Chest: Effort normal No respiratory distress. No grossly audible wheezes nor rales Abdominal: Soft. No distension. Appropriately tender. Midline wound packed with no surrounding erythema/ drainage/ induration. Drain in RUQ to bulb suction with purulent output. There is no rebound and no guarding. Musculoskeletal: Normal range of motion. No edema or deformity. Neurological: Alert and oriented to person, place, and time. Skin: Skin is warm and dry. No rash noted. Not diaphoretic. No erythema. Psychiatric: Normal mood and affect. Current Facility-Administered Medications: ??? acetaminophen (TYLENOL) tablet 1,000 mg, 1,000 mg, oral, Q6H PRN ??? aspirin enteric coated tablet 325 mg, 325 mg, oral, Daily, 325 mg at 12/21/19834 ??? dilTIAZem XR (CARDIZEM CD,DILACOR XR) 24 hour capsule 240 mg, 240 mg, oral, Daily, 240 mg at 12/21/19 1113 ??? enoxaparin (LOVENOX) syringe 40 mg, 40 mg, subcutaneous, Daily-2100, 40 mg at 12/21/192155 ??? folic acid (FOLVITE) tablet 1 mg, 1 mg, oral, Daily, 1 mg at 12/21/19834 ??? levalbuterol (XOPENEX) 1.25 mg/3 mL nebulizer solution 1.25 mg, 1.25 mg, nebulization, Q6H PRN (RT) ??? magnesium oxide (MAG-OX) tablet 400 mg, 400 mg, oral, Daily, 400 mg at 12/21/1936 ??? meropenem (MERREM) 1,000 mg/110 mL in sodium chloride 0.9% (premix) 1,000 mg, 1,000 mg, intravenous, Q8H MONET, Last Rate: 220 mL/hr at 12/22/19 0005, 1,000 mg at 12/22/19 0005 ??? metoprolol tartrate (LOPRESSOR) immediate release tablet 25 mg, 25 mg, oral, BID, 25 mg at 12/21/192153 ??? ondansetron ODT (ZOFRAN-ODT) disintegrating tablet 4 mg, 4 mg, oral, Q4H PRN ??? pantoprazole DR (PROTONIX) extended release tablet 40 mg, 40 mg, oral, Daily, 40 mg at ??? polyethylene glycol (MIRALAX) packet 17 g, 17 g, oral, Daily ??? QUEtiapine (SEROquel) tablet 12.5 mg, 12.5 mg, oral, Nightly, 12.5 mg at 12/21/192152 ??? sodium chloride 0.9% flush 0.5-20 mL, 0.5-20 mL, intra-catheter, Q8H MONET, 10 mL at 12/21/19 2200 ??? sodium chloride 0.9% flush 0.5-20 mL, 0.5-20 mL, intra-catheter, PRN ??? sodium chloride 0.9% flush 0.5-20 mL, 0.5-20 mL, intra-catheter, Q8H MONET, 10 mL at 12/21/19 2200 ??? sodium chloride 0.9% flush 0.5-20 mL, 0.5-20 mL, intra-catheter, PRN ??? thiamine (VITAMIN B1) tablet 100 mg, 100 mg, oral, Daily, 100 mg at 12/21/19 0835 Lab/Radiology/Diagnostic Review: Laboratory studies from the past 24 hours were reviewed and significant for Lab Results Component Value Date WBC 5.4 12/20/2019 WBC 5.2 12/20/2019 WBC 5.9 12/18/2019 Lab Results Component Value Date HGB 10.4 (L) 12/20/2019 HGB 9.8 (L) 12/20/2019 HGB 10.3 (L) 12/18/2019 Lab Results Component Value Date HCT 31.5 (L) 12/20/2019 HCT 30.0 (L) 12/20/2019 HCT 30.8 (L) 12/18/2019 Lab Results Component Value Date CREATININE 0.48 (L) 12/20/2019 CREATININE 0.57 (L) 12/20/2019 CREATININE 0.49 (L) 12/18/2019 Lab Results Component Value Date BILITOT 0.2 12/20/2019 BILITOT 0.2 12/20/2019 BILITOT 0.4 12/18/2019 Lab Results Component Value Date ALKPHOS 95 12/20/2019 ALKPHOS 100 12/20/2019 ALKPHOS 99 12/18/2019 Lab Results Component Value Date AST 26 12/20/2019 AST 18 12/20/2019 AST 14 12/18/2019 Lab Results Component Value Date ALT 12 12/20/2019 ALT 10 12/20/2019 ALT 14 12/18/2019 Lab Results Component Value Date MICROBIOLOGY (.) 12/19/2019 Preliminary Report: Abundant Escherichia coli Additional susceptibility testing results to follow. * * * * * * * * * * * * * * * * * * * * The susceptibility pattern of this Escherichia coli indicates the possible production of an extended spectrum beta lactamase (ESBL). Patients infected with ESBL-producing organisms require contact isolation precautions. For therapeutic options for this organism, please contact infectious diseases. Susceptibility Escherichia coli INTERPRETATION Ampicillin Resistant Ampicillin with Sulbactam Resistant Cefazolin Resistant Cefepime Resistant Ceftazidime Resistant Ceftriaxone Resistant Ciprofloxacin Resistant Gentamicin Susceptible Meropenem Susceptible Trimethoprim with Sulfamethoxazole Resistant Narrative Recent Radiology studies were reviewed and significant for: RUQ ultrasound 12/20 FINDINGS: ?? Liver: The liver is normal in size. ??The echotexture is normal. ??The echogenicity is normal. There is no surface nodularity. No focal solid lesions are visualized. ?? Gallbladder: The gallbladder is irregular with marked wall thickening. ??There are stones and sludge within the gallbladder. There is a right upper quadrant drain in a pericholecystic collection, with a small amount of perihepatic fluid. ?? Bile Duct: There is no intrahepatic bile duct dilatation. The common duct measures 2 mm, 5 mm in the proximal and mid ducts, respectively. ??The distal common bile duct is obscured by bowel gas. Pancreas: The visualized portions of the head of the pancreas are normal. Impression: ?? Irregular, markedly thick-walled gallbladder containing stones and sludge; pericholecystic collection with drain in place; and small amount of perihepatic fluid. ??These findings are compatible with sequelae of perforated cholecystitis. CT 12/18 Impression: ?? Multiloculated abscess arising from the gallbladder fossa with extension to the subcutaneous tissue of the ventral abdominal wall. Vitals: 24hr Min/Max: Temp Min: 36.6 ??C (97.9 ??F) Max: 37.1 ??C (98.8 ??F) Pulse Min: 66 Max: 108 BP Min: 136/69 Max: 154/91 Resp Min: 16 Max: 16 SpO2 Min: 97 % Max: 100 % Most Recent: Vitals: 12/22/19 0431 BP: 141/94 Pulse: 108 Resp: 16 Temp: 37.1 ??C (98.8 ??F) SpO2: 99% I/O last 2 completed shifts: In: - Out: -10 I/O this shift: In: 0 Out: 20 [Drains:20] Recent Interventions: Percutaneous drainage 12/18 FINDINGS: Images from the procedure revealed a moderate-sized, multiloculated fluid collection in the right abdominal wall, corresponding to the collection seen on prior CT. ??The fluid appeared purulent. ??An approximate volume of 10 cc was drained at the time of the procedure and sent for labs. Impression: ?? Successful image guided right upper quadrant abscess drainage. Assessment/Plan 1. Cholecystitis, RUQ abscess tracking to abdominal wall s/p percutaneous drainage - culture from aspirate growing MDR E. coli. Will complete 10 day course of meropenem - dry dressing changes to previous drain site - flush drain BID - PT/ OT evaluation - SW consult for placement assistance as his requests alternate facility - once strength and conditioning improve will return to discuss cholecystectomy; will coordinate follow up with [facility]. - SCD's, enoxaparin for DVT ppx (previously on therapeutic lovenox for recurrent Afib with RVR but with fall risk will hold anticoagulation) LORI Wlison 12/22/20195:49 AM * Katie Gilbert MD - 12/21/2019 7:03 AM CDT Radiology Progress Note 69 yo M found to have gall bladder fossa abscess extending through abdominal wall. Percutaneous drain placed by IR on 12/18. Interval History: Seen this AM. No drain related complaints. Exam: Gen: NAD, A&Ox3 CVR: non labored breathing, regular respiratory rate. Abd: NTTP around drain site, no erythema or leakage. Thin yellow drainage in suction bulb. Ext: Warm and well perfused. Output by Drain (mL) 12/19/19 0700 - 12/19/19 1859 12/19/19 1900 - 12/20/19 0659 12/20/19 0700 - 12/20/19 1859 12/20/19 1900 - 12/21/19 0659 12/21/19 0700 - 12/21/19 0704 Closed/Suction/Open Drain 1 Right RUQ Bulb 10 Fr. 30 35 32 0 Fluid Cx: abundant E. coli Assessment and Plan: Gallbladder fossa and abdominal wall abscess s/p drain placement 12/18. Good output so far. - continue flushes as ordered - continue to monitor daily output - will plan to see patient in 10 days for drain check - IR will follow while inpatient Page IR with questions: [phone] I have seen and examined the patient on 12/21/19. I agree with the findings and plan of care as documented in the resident's/fellow's note.. Katie Gilbert MD * Stephany Chavez PA - 12/21/2019 5:44 AM CDT Hepatobiliary Surgery Daily Progress HPI: Mr. Lloyd Redman is a 69 y.o. year old admitted for Cholecystitis Length of Hospitalization: 3 Post Procedure Day: Percutaneous RUQ abscess 12/19 SUBJECTIVE/ INTERVAL HISTORY Aspirate cx growing E. Coli Drain output ~30cc WBC normal, afebrile Objective Physical Exam Constitutional: Appears comfortable. Lying in bed. No distress. HENT: No nasal cannula nor NGT Eyes: Conjunctivae are normal. Pulmonary/Chest: Effort normal No respiratory distress. No grossly audible wheezes nor rales Abdominal: Soft. No distension. Appropriately tender. Midline wound packed with no surrounding erythema/ drainage/ induration. Drain in RUQ to bulb suction purulent output. There is no rebound and noguarding. Musculoskeletal: Normal range of motion. No edema or deformity. Neurological: Alert and oriented to person, place, and time. Skin: Skin is warm and dry. No rash noted. Not diaphoretic. No erythema. Psychiatric: Normal mood and affect. Current Facility-Administered Medications: ??? acetaminophen (TYLENOL) tablet 1,000 mg, 1,000 mg, oral, Q6H PRN ??? carvediloL (COREG) tablet 6.25 mg, 6.25 mg, oral, BID with meals (bkfst, dinner), 6.25 mg at 12/20/19 1730 ??? cefepime (MAXIPIME) 2,000 mg/20 mL in sterile water (premix) 2,000 mg, 2,000 mg, intravenous, Q8H MONET, Last Rate: 40 mL/hr at 12/21/19 0147, 2,000 mg at 12/21/19146 ??? dilTIAZem (CARDIZEM) tablet 60 mg, 60 mg, oral, QID, 60 mg at 12/20/192144 ??? enoxaparin (LOVENOX) syringe 40 mg, 40 mg, subcutaneous, Daily-2100, 40 mg at 12/20/192144 ??? metroNIDAZOLE (FLAGYL) 500 mg/100 mL in sodium chloride (premix) 500 mg, 500 mg, intravenous, Q8H MONET, Last Rate: 200 mL/hr at 12/21/19145, 500 mg at 12/21/19145 ??? ondansetron ODT (ZOFRAN-ODT) disintegrating tablet 4 mg, 4 mg, oral, Q4H PRN ??? sodium chloride 0.9% flush 0.5-20 mL, 0.5-20 mL, intra-catheter, Q8H MONET, 10 mL at 12/20/192145 ??? sodium chloride 0.9% flush 0.5-20 mL, 0.5-20 mL, intra-catheter, PRN ??? sodium chloride 0.9% flush 0.5-20 mL, 0.5-20 mL, intra-catheter, Q8H MONET, 10 mL at 12/20/192145 ??? sodium chloride 0.9% flush 0.5-20 mL, 0.5-20 mL, intra-catheter, PRN Lab/Radiology/Diagnostic Review: Laboratory studies from the past 24 hours were reviewed and significant for Lab Results Component Value Date WBC 5.4 12/20/2019 WBC 5.2 12/20/2019 WBC 5.9 12/18/2019 Lab Results Component Value Date HGB 10.4 (L) 12/20/2019 HGB 9.8 (L) 12/20/2019 HGB 10.3 (L) 12/18/2019 Lab Results Component Value Date HCT 31.5 (L) 12/20/2019 HCT 30.0 (L) 12/20/2019 HCT 30.8 (L) 12/18/2019 Lab Results Component Value Date CREATININE 0.48 (L) 12/20/2019 CREATININE 0.57 (L) 12/20/2019 CREATININE 0.49 (L) 12/18/2019 Lab Results Component Value Date BILITOT 0.2 12/20/2019 BILITOT 0.2 12/20/2019 BILITOT 0.4 12/18/2019 Lab Results Component Value Date ALKPHOS 95 12/20/2019 ALKPHOS 100 12/20/2019 ALKPHOS 99 12/18/2019 Lab Results Component Value Date AST 26 12/20/2019 AST 18 12/20/2019 AST 14 12/18/2019 Lab Results Component Value Date ALT 12 12/20/2019 ALT 10 12/20/2019 ALT 14 12/18/2019 Lab Results Component Value Date MICROBIOLOGY (.) 12/19/2019 Preliminary Report: Abundant Escherichia coli Susceptibility testing results to follow. Susceptibility Escherichia coli INTERPRETATION Ampicillin Resistant Ampicillin with Sulbactam Resistant Cefazolin Resistant Cefepime Resistant Ceftazidime Resistant Ceftriaxone Resistant Ciprofloxacin Resistant Gentamicin Susceptible Meropenem Susceptible Trimethoprim with Sulfamethoxazole Resistant Narrative Recent Radiology studies were reviewed and significant for: RUQ ultrasound 12/20 FINDINGS: ?? Liver: The liver is normal in size. ??The echotexture is normal. ??The echogenicity is normal. There is no surface nodularity. No focal solid lesions are visualized. ?? Gallbladder: The gallbladder is irregular with marked wall thickening. ??There are stones and sludge within the gallbladder. There is a right upper quadrant drain in a pericholecystic collection, with a small amount of perihepatic fluid. ?? Bile Duct: There is no intrahepatic bile duct dilatation. The common duct measures 2 mm, 5 mm in the proximal and mid ducts, respectively. ??The distal common bile duct is obscured by bowel gas. Pancreas: The visualized portions of the head of the pancreas are normal. Impression: ?? Irregular, markedly thick-walled gallbladder containing stones and sludge; pericholecystic collection with drain in place; and small amount of perihepatic fluid. ??These findings are compatible with sequelae of perforated cholecystitis. CT 12/18 Impression: ?? Multiloculated abscess arising from the gallbladder fossa with extension to the subcutaneous tissue of the ventral abdominal wall. Vitals: 24hr Min/Max: Temp Min: 36.3 ??C (97.4 ??F) Max: 37 ??C (98.6 ??F) Pulse Min: 58 Max: 105 BP Min: 123/73 Max: 150/111 Resp Min: 14 Max: 16 SpO2 Min: 92 % Max: 98 % Most Recent: Vitals: 12/21/19 0521 BP: 140/90 Pulse: 58 Resp: 16 Temp: 37 ??C (98.6 ??F) SpO2: 98% I/O last 2 completed shifts: In: - Out: 67 [Drains:67] No intake/output data recorded. Recent Interventions: Percutaneous drainage 12/18 FINDINGS: Images from the procedure revealed a moderate-sized, multiloculated fluid collection in the right abdominal wall, corresponding to the collection seen on prior CT. ??The fluid appeared purulent. ??An approximate volume of 10 cc was drained at the time of the procedure and sent for labs. Impression: ?? Successful image guided right upper quadrant abscess drainage. Assessment/Plan 1. Cholecystitis, RUQ abscess tracking to abdominal wall s/p percutaneous drainage - culture from aspirate growing MDR E. coli. Will complete 10 day course of meropenem - dry dressing changes to previous drain site - flush drain BID - PT/ OT evaluation - SW consult for placement assistance as his requests alternate facility - once strength and conditioning improve will return to discuss cholecystectomy; will coordinate follow up with [facility]. - SCD's, enoxaparin for DVT ppx (previously on therapeutic lovenox for recurrent Afib with RVR but with fall risk will hold anticoagulation) LORI Wilson 12/21/20195:44 AM * Kenji Smith MD - 12/20/2019 7:18 PM CDT Radiology Progress Note 69 yo M found to have gall bladder fossa abscess extending through abdominal wall. Percutaneous drain placed by IR on 12/18. Interval History: Seen this AM. No drain related complaints. Exam: Gen: NAD, A&Ox3 Cardio: rrr Pulm: non-labored on RA Abd: mild TTP around drain site, site is clean/dry, bag had just been emptied Output by Drain (mL) 12/18/19 0700 - 12/18/19 1859 12/18/19 1900 - 12/19/19 0612/19/19 07 - 12/19/19185812/19/191899 - 12/20/19 0659 12/20/19699 - 12/20/19185812/20/191899 - 12/20/19 192 Closed/Suction/Open Drain 1 Right RUQ Bulb 10 Fr. 30 35 32 Fluid Cx: abundant E. coli Assessment and Plan: Gallbladder fossa and abdominal wall abscess s/p drain placement 12/18. Good output so far. - continue flushes as ordered - continue to monitor daily output - will plan to see patient in 10 days for drain check - IR will follow while inpatient Page IR with questions: [phone] * Stephany Chavez PA - 12/20/2019 5:47 AM CDT Hepatobiliary Surgery Daily Progress HPI: Mr. Lloyd Redman is a 69 y.o. year old admitted for Cholecystitis Length of Hospitalization: 2 Post Procedure Day: Percutaneous RUQ abscess 12/19 SUBJECTIVE/ INTERVAL HISTORY Had percutaneous drainage of RUQ abscess yesterday, cx growing GNRs WBC normal, afebrile Objective Physical Exam Constitutional: Appears comfortable. Lying in bed. No distress. HENT: No nasal cannula nor NGT Eyes: Conjunctivae are normal. Pulmonary/Chest: Effort normal No respiratory distress. No grossly audible wheezes nor rales Abdominal: Soft. No distension. Appropriately tender. Midline wound packed with no surrounding erythema/ drainage/ induration. Drain in RUQ to bulb suction purulent output. There is no rebound and noguarding. Musculoskeletal: Normal range of motion. No edema or deformity. Neurological: Alert and oriented to person, place, and time. Skin: Skin is warm and dry. No rash noted. Not diaphoretic. No erythema. Psychiatric: Normal mood and affect. Current Facility-Administered Medications: ??? acetaminophen (TYLENOL) tablet 1,000 mg, 1,000 mg, oral, Q6H PRN ??? carvediloL (COREG) tablet 6.25 mg, 6.25 mg, oral, BID with meals (bkfst, dinner), 6.25 mg at 12/20/19907 ??? cefepime (MAXIPIME) 2,000 mg/20 mL in sterile water (premix) 2,000 mg, 2,000 mg, intravenous, Q8H MONET, Last Rate: 40 mL/hr at 12/20/19 0346, 2,000 mg at 12/20/19 0346 ??? dilTIAZem (CARDIZEM) tablet 60 mg, 60 mg, oral, QID, 60 mg at 12/20/19907 ??? enoxaparin (LOVENOX) syringe 40 mg, 40 mg, subcutaneous, Daily-2099, 40 mg at 12/19/192133 ??? metroNIDAZOLE (FLAGYL) 500 mg/100 mL in sodium chloride (premix) 500 mg, 500 mg, intravenous, Q8H MONET, Last Rate: 200 mL/hr at 12/20/19 034, 500 mg at 12/20/19 0346 ??? ondansetron ODT (ZOFRAN-ODT) disintegrating tablet 4 mg, 4 mg, oral, Q4H PRN ??? sodium chloride 0.9% flush 0.5-20 mL, 0.5-20 mL, intra-catheter, Q8H MONET, 10 mL at 12/20/19 0540 ??? sodium chloride 0.9% flush 0.5-20 mL, 0.5-20 mL, intra-catheter, PRN ??? sodium chloride 0.9% flush 0.5-20 mL, 0.5-20 mL, intra-catheter, Q8H MONET, 10 mL at 12/20/19 0540 ??? sodium chloride 0.9% flush 0.5-20 mL, 0.5-20 mL, intra-catheter, PRN Lab/Radiology/Diagnostic Review: Laboratory studies from the past 24 hours were reviewed and significant for Lab Results Component Value Date WBC 5.2 12/20/2019 WBC 5.9 12/18/2019 Lab Results Component Value Date HGB 9.8 (L) 12/20/2019 HGB 10.3 (L) 12/18/2019 Lab Results Component Value Date HCT 30.0 (L) 12/20/2019 HCT 30.8 (L) 12/18/2019 Lab Results Component Value Date CREATININE 0.57 (L) 12/20/2019 CREATININE 0.49 (L) 12/18/2019 Lab Results Component Value Date BILITOT 0.2 12/20/2019 BILITOT 0.4 12/18/2019 Lab Results Component Value Date ALKPHOS 100 12/20/2019 ALKPHOS 99 12/18/2019 Lab Results Component Value Date AST 18 12/20/2019 AST 14 12/18/2019 Lab Results Component Value Date ALT 10 12/20/2019 ALT 14 12/18/2019 Lab Results Component Value Date MICROBIOLOGY (.) 12/19/2019 Preliminary Report: Abundant Gram Negative Bacilli Identification and susceptibility results to follow. Recent Radiology studies were reviewed and significant for: CT 12/18 Impression: ?? Multiloculated abscess arising from the gallbladder fossa with extension to the subcutaneous tissue of the ventral abdominal wall. Vitals: 24hr Min/Max: Temp Min: 36.3 ??C (97.3 ??F) Max: 36.7 ??C (98.1 ??F) Pulse Min: 82 Max: 134 BP Min: 122/88 Max: 147/91 Resp Min: 16 Max: 23 SpO2 Min: 92 % Max: 100 % Most Recent: Vitals: 12/20/19 0749 BP: 143/99 Pulse: 82 Resp: 16 Temp: 36.3 ??C (97.4 ??F) SpO2: 92% I/O last 2 completed shifts: In: 740 [P.O.:360; IV Piggyback:380] Out: 65 [Drains:65] I/O this shift: In: - Out: 15 [Drains:15] Recent Interventions: Percutaneous drainage 12/18 FINDINGS: Images from the procedure revealed a moderate-sized, multiloculated fluid collection in the right abdominal wall, corresponding to the collection seen on prior CT. ??The fluid appeared purulent. ??An approximate volume of 10 cc was drained at the time of the procedure and sent for labs. Impression: ?? Successful image guided right upper quadrant abscess drainage. Assessment/Plan 1. Cholecystitis, RUQ abscess tracking to abdominal wall s/p percutaneous drainage - continue cefepime, flagyl, follow cultures and sensitivities - continue daily dressing changes to previous drain site - flush drain BID - PT/ OT evaluation - SW consult for placement assistance as his requests alternate facility - once strength and conditioning improve will return to discuss cholecystectomy; will coordinate follow up with [facility]. - SCD's, enoxaparin for DVT ppx LORI Wilson 12/20/20199:26 AM * Dora Anderson RN - 12/19/2019 11:36 AM CDT 12/19/19 1134 Information Information Obtained From Patient Referral Data Referral Reason Discharge Planning Prior to Admission Primary Caregiver Self Support System Spouse/Significant Other Support system contact info (name, phone, availablity) Raine Redman (spouse) [phone] Home Care Services No Durable Medical Equipment Walker (wheeled);Wheelchair Living Arrangements Spouse/significant other Type of Residence Private residence (Patient was in rehab prior to admission) Financial Resource Payor Source Medicare advantage ([employer] Medicare) Potential Discharge Needs Anticipated discharge level of care Other (Comment) (Will await Pt/OT eval for dispo recs) Pt/Family agrees with Anticipated Level of Care Yes Dialysis No Behavioral Health Services No Chart reviewed for medical necessity. Time of Interview: 1120 Patient admitted for treatment of: Abscess Information obtained from: patient Insurance verified as: [employer] Medicare PCP verified as: Jean-Claude Crawford MD Transportation: per Raine Admission Source: Trasnfer from OSH Additional Information/Options Discussed: Verified demographic information from the face sheet withthe patient. PatuientExplained role and purpose of case preparer and liner. Denies the use of home health in the past - a list will be provided if recommended. public events facilities rental manager to continue to follow for planning and referrals as needed. Discussed mobile pharmacy. Patient was at a rehab facility prior to admission, and states he has been in and out of rehab for the last several months. His ultimate goal is to return home. Patient/Family agreeable with discharge plan. Will await PT/OT evaluation for dispo recommendation.Patient independent prior to admission. Machine Bunch Maker will continue to follow for discharge needs. Based on a comprehensive family assessment, assistance with instrumental activities of daily livingafter discharge will be provided by Raine. Through the course of our work I determined that Raine possesses the skill and ability to provide and monitor the care of the patient when he returns home. Raine has the capacity to provide/monitor/arrange for the care of the patient. Finally, we determined that Raine has the knowledge of availableresources and that combining them with their existing resources will suffice to sustain and care for the patient when he returns home. The treatment team is aware of this information. All are in agreement with the aftercare plan. Problem: Patient still requiring further evaluation/monitoring before being medically stable to discharge Goal: Implement a safe discharge with family support; CM to follow for d/c planning and referrals as needed. documented in this encounter H&P Notes * Madison Davis MD - 12/19/2019 2:39 PM CDT HPB Admission Note Chief Complaint: RUQ abdominal abscess HPI: Mr. Lloyd Redman is a 69 y.o. w/ a h/o acute cholecystitis c/b recurrent gallbladder abscessesrequiring percutaneous drainage, who now presents as an OSH transfer with an abdominal wall abscess. The patient initially presented to [facility] in July, with acute cholecystitis. During evaluation at the hospital, ??he was found to be in AFib with RVR and later developed alcohol withdrawal. Determined to be a poor candidate for surgery, he was was treated with antibiotics and improved.??In September, he presented with similar symptoms as his prior episode and was found to have an abscess in the gall bladder fossa secondary to gallbladder perforation, requiring antibiotics and multiple percutaneous drainages. His last drain was removed a few weeks ago. ?? For the past few weeks at his fpc, patient noticed worsening pain and induration on the skin of his RUQ that intermittently drains reddish-rodriguez dischage. The patient denies a recent history of fever or chills. He also denies any changes in bowel habbits or appetite. He was seen at the OSH yesterday where he was noted to be non-leukocytotic, and afebrile. A CT A/P with contrast was noted to have a large multilocular abscess along the RU abdominal wall. Of note the patient has a history of alcohol abuse, drinking 3 4oz drinks of Tequila daily prior toa hospitalization in July Past Medical History: has a past medical history of Atrial fibrillation (CMS/HCC), Hyperlipidemia, and Hypertension. Past Surgical History: has no past surgical history on file. Social History: reports that he has been smoking. He has been smoking about 1.00 pack per day. He has never used smokeless tobacco. He reports current alcohol use. Allergies Allergen Reactions ??? Penicillins Hives Medications: HOME MEDICATIONS : carvediloL (COREG) 12.5 mg tablet cholecalciferol (VITAMIN D-3) 5,000 unit tablet diltiazem (TIAZAC) 360 mg 24 hr capsule folic acid (FOLVITE) 1 mg tablet lansoprazole (PREVACID) 30 mg capsule olmesartan-hydrochlorothiazide (BENICAR HCT) 40-12.5 mg per tablet potassium chloride ER (KLOR-CON) 10 mEq CR tablet pravastatin (PRAVACHOL) 40 mg tablet predniSONE (DELTASONE) 20 mg tablet terazosin (HYTRIN) 10 mg capsule thiamine (VITAMIN B1) 100 mg tablet Review of Systems: Per HPI All other systems negative. Physical Exam: Blood pressure 128/99, pulse 111, temperature 36.3 ??C (97.4 ??F), temperature source Temporal, resp. rate 19, height 180.3 cm (5' 11 ), weight 77.1 kg (170 lb), SpO2 97 %. General: appears stated age but disheveled. AOx3. Head: Normocephalic Eyes: Anicteric, bilatera normal eye movements ENT: normal hearing, Mucosa moist, no oral lesions. Poor dentition Lungs: non laboured breathing, equal and symmetric chest rise CV: well perfused, normal rhythm Abdomen: soft, not distended, no ascites. 4cm tender area of induration with central erythema and purulent fluctuance Skin: no rashes or or jaundice Extremities: Warm, no significant pedal edema Neuro: No gross neurological deficits Pysch: Mood appropriate Imaging and Labs: Recent Labs Lab Units 12/18/19 2206 WBC K/cumm 5.9 HEMOGLOBIN g/dL 10.3* HEMATOCRIT % 30.8* PLATELETS K/cumm 251 Recent Labs Lab Units 12/18/19 2206 SODIUM mmol/L 135 POTASSIUM PLASMA mmol/L 3.0* CHLORIDE mmol/L 103 CO2 mmol/L 24 ANIONGAP mmol/L 8 GLUCOSE mg/dL 91 BUN SERUM mg/dL 7* CREATININE mg/dL 0.49* CALCIUM mg/dL 8.5 ALBUMIN g/dL 2.2* ALK PHOS Units/L 99 ALT Units/L 14 AST Units/L 14 BILIRUBIN TOTAL mg/dL 0.4 Recent Labs Lab Units 12/18/19 [address] 1[address]4* CT abdomen/pelvis 12/18/2019: formal read Arising from the gallbladder fossa there is a large fluid collection with rim enhancement with a component coursing towards the ventral abdominal wall involving the subcutaneous fat; this collection measures approximately 9.4 x 4.4 x 10.2 cm. Assessment and Plan: Mr. Redman is a 69 y.o. who presents s/p complicated acute cholecystitis with a recurrent abscesses likely communicating through his recent drain site. - repeat labs - continue cefepime and start flagyl - consult IR for drainage - NPO prior to procedure. Regular diet after - dressing changes as needed. - resume home meds Madison Dvais MD Cosigned by Eugene Oates MD at 12/20/2019 10:59 AM CDT documented in this encounter Nursing Notes * Taryn Herrera RN - 12/19/2019 12:22 PM CDT Procedure complete, pt transferred to stretcher/bed with full assist, tolerated well, HOB up 30 degrees, all comfort measures in place. * Taryn Herrera RN - 12/19/2019 12:11 PM CDT Report given to Tanja NOLASCO. * Taryn Herrera RN - 12/19/2019 11:37 AM CDT Pt transferred to table with full assist, placed on monitor, all comfort and safety measures in place. documented in this encounter Miscellaneous Notes * Plan of Care - Gina Stephens PTA - 12/28/2019 4:23 PM CDT Problem: Mobility Goal: STG - Patient will ambulate Description: 100 feet, with ww, sup assist Outcome: Progressing Problem: Transfers Goal: STG - Patient will transfer sit to and from stand Description: supervision with WW Outcome: Progressing * Plan of Care - Little Verdugo RN - 12/28/2019 11:38 AM CDT Per DCAM: patient is medically stable at this time. SW is waiting for insurance authorization for transition to lower level of care. ADD as soon as bed is available following for placement assistance will continue to follow for needs A Kartik BOWDEN [phone] For evening case management needs please contact the sales planning manager at [phone]. For weekend and holiday needs please call [phone]. * Plan of Care - Prosper Hinojosa RN - 12/28/2019 10:13 AM CDT Problem: Lack of Knowledge: Goal: Ability to state ways to decrease the risk of falls will improve Outcome: Progressing Problem: Safety: Goal: Will remain free from falls Outcome: Progressing Goal: Will remain free from injury from falls Outcome: Progressing Goal: Will remain free from falls and injury in home environment Outcome: Progressing Problem: Lack of Knowledge: Goal: Ability to develop a pain control plan will improve Outcome: Progressing Goal: Ability to identify pain intensity on a pain scale and rate it consistently will improve Outcome: Progressing Goal: Ability to notify healthcare provider of pain before it becomes unmanageable or unbearable will improve Outcome: Progressing Problem: Medication: Goal: Satisfaction with pain management regimen will improve Outcome: Progressing Problem: Sensory: Goal: Ability to identify factors that increase the pain will improve Outcome: Progressing Goal: Pain level will decrease Outcome: Progressing Problem: Activity: Goal: Risk for activity intolerance will decrease Outcome: Progressing Problem: Lack of Knowledge: Goal: Knowledge of diagnostic tests will improve Outcome: Progressing Goal: Knowledge of disease or condition will improve Outcome: Progressing Goal: Knowledge of safety precautions will improve Outcome: Progressing Goal: Knowledge of the prescribed therapeutic regimen will improve Outcome: Progressing Problem: Health Behavior: Goal: Ability to state signs and symptoms to report to health care provider will improve Outcome: Progressing Problem: Physical Regulation: Goal: Ability to maintain clinical measurements within normal limits will improve Outcome: Progressing Problem: Infection Risk: Goal: Will remain free from infection Outcome: Progressing Problem: Safety: Goal: Ability to remain free from injury will improve Outcome: Progressing Goal: Will remain free from falls Outcome: Progressing Problem: Self-Care: Goal: Ability to participate in self-care as condition permits will improve Outcome: Progressing Problem: Sensory: Goal: Pain level will decrease Outcome: Progressing Goal: Ability to develop a pain control plan will improve Outcome: Progressing Problem: Skin Integrity: Goal: Risk for impaired skin integrity will decrease Outcome: Progressing Problem: Tissue Perfusion: Goal: Risk factors for ineffective tissue perfusion will decrease Outcome: Progressing Problem: Activity: Goal: Mobility will improve Outcome: Progressing Problem: Lack of Knowledge: Goal: Understanding of ways to prevent future skin breakdown will improve Outcome: Progressing Problem: Skin Integrity: Goal: Risk for impaired skin integrity will decrease Outcome: Progressing Goal: Ability to demonstrate warm and dry skin will improve Outcome: Progressing Goal: Circulation will improve to fullest extent possible Outcome: Progressing Problem: Health Behavior: Goal: Understanding of discharge needs will improve Outcome: Progressing Goals: Clinical Goals for the Shift: monitor vitals, provide scheduled medications Summary: * SVETA Note - Mariaa Pereyra LCSW - 12/28/2019 9:46 AM CDT Patient Information: OT Eval and Treat Last 72 Hours OT Evaluation Row Name 12/22/19 0936 Chart Reviewed Yes -EW Session Type Evaluation -EW OT Received On 12/22/19 -EW Safe Environment Arm Band Checked;Call Light within Reach;Notified RN;Patient found in Supine;Overbed Table within Reach;Bed in Lowest Position with Wheels locked;Bed rails up per protocol;Bed Alarm placed and activated Pt returned to supine, needs within reach -EW Subjective Agreeable to Therapy -EW Additional Pertinent History HPI: 69 y.o. 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, alcohol abuse, a-fib, hld, htn, current smoker -EW Family/Caregiver Present No -EW Occupational Therapy-Patient Goal Pt agreeable to goals presented by OT student -EW Precautions Fall risk -EW Type of Home House -EW Home Layout Multi-level Pt reports it is a split-level home -EW # of Steps-Railed 7 Pt reports 7 steps to bedroom, HR on R -EW Home Access Stairs to enter with rails -EW Entrance Stairs-Rails Right -EW Entrance Stairs-Number of Steps 1 -EW Bathroom Shower/Tub Walk-in shower with threshold -EW Bathroom Toilet Standard -EW Bathroom Equipment Grab bars in shower/tub;Built-in shower seat -EW Bathroom Accessibility Accessible via walker -EW Home Mobility Equipment Wheeled walker -EW Additional Comments Pt reports use of WW at baseline -EW Level of [place] Independent with ADLs;Independent functional transfers;Independent with ambulation;Independent with homemaking with ambulation Mod I with WW -EW Lives With Spouse -EW Receives Help From Spouse/Significant other FT assist available -EW Driving No -EW Mode of Transportation Car;Driven by others Pt reports spouse drives -EW ADL Assistance Independent -EW Instrumental ADL (IADL) Assistance Independent -EW Medical Management -- Pt reports requires assist from with pill box -EW 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 -EW Leisure Hobbies-yes (Comment) Pt reports he enjoys cooking -EW Fall within the last 6 months comment Pt reports 1 fall d/t tripping over a visitor during a democrat at home -EW Prior Function Comments Pt reports use of WW and grab bars at baseline, assist required for medication management, Mod I with all other ADLs/IADLs -EW ADLS (WDL) X -EW Grooming: Where assessed Standing at sink -EW Grooming: Level of assistance Minimum Assist ADL: Mod I Bal: Min A -EW Grooming: Assistance with Safety Min A for safety d/t decreased balance -EW LE Dressing: Where assessed Edge of bed -EW LE Dressing: Level of assistance Minimum Assist ADL: Mod I Bal: min -EW LE Dressing: Assistance with Safety;Increased time to complete;Requires assistive device for steadying Min A for balance in sitting/standing -EW Toileting: Where assessed Toilet -EW Toileting: Level of assistance Minimum Assist -EW Toileting: Assistance with Increased time to complete Min A for balance -EW Toilet Transfer From Bed -EW Toilet Transfer Type To and from -EW Toilet Transfer to Standard toilet -EW Toilet Transfer Technique Ambulating -EW Toilet Transfer: Equipment Wheeled walker -EW Toilet Transfers Minimal assistance -EW Toilet Transfers Comments Min A required for balance -EW Pain Assessment No/denies pain -EW Endurance Tolerates 10 - 20 min activity with multiple rests -EW Activity Tolerance Comments Timmy: pretty hard -EW Current Vision Does not wear glasses -EW Arousal/Alertness Alert;Appropriate responses to stimuli -EW Attention Span Attends with cues to redirect -EW Memory Decreased short term memory Recalled 3/5 components of name/address in SBT -EW Current communication Appears Intact -EW Orientation Oriented X4 (person, place, time, situation) -EW Following Commands Follows one step commands without difficulty -EW Safety Judgment Decreased awareness of need for safety -EW Awareness of Errors Assistance required to identify errors made -EW Insight Decreased awareness of deficits -EW Problem Solving Assistance required to identify errors made -EW Compliance/Behavior Easy to engage -EW Perseveration Not present -EW Light Touch WFL BUE -EW Numbness/Tingling No BUE -EW Serial Opposition -- Increased time required for accuracy -EW Hand Preference Left -EW Balance Yes -EW Static Sitting-Balance Support Bilateral upper extremity supported;Feet supported -EW Static Sitting-Sitting Surface Bed -EW Static Sitting-Level of Assistance Distant supervision -EW Static Sitting-Comment/# of Minutes For safety -EW Dynamic Sitting-Balance Support Unilateral upper extremity supported;Feet supported -EW Dynamic Sitting-Balance Lateral lean;Reaching for objects -EW Dynamic Sitting-Sitting Surface Bed -EW Dynamic Sitting-Level of Assistance Minimum assistance -EW Dynamic Sitting-Comments Min A for balance d/t lateral lean to R -EW Static Standing-Balance Support Bilateral upper extremity supported WW -EW Static Standing-Standing Surface Floor -EW Static Standing-Level of Assistance Contact guard -EW Static Standing-Comment/# of Minutes For safety/balance -EW Dynamic Standing-Balance Support Bilateral upper extremity supported;Unilateral upper extremity supported WW -EW Dynamic Standing-Balance Lateral lean;Reaching for objects -EW Dynamic Standing-Standing Surface Floor -EW Dynamic Standing-Level of Assistance Minimum assistance -EW Dynamic Standing-Comments Min A required d/t decreased balance -EW Bed Mobility Yes -EW Bed Mobility From 1 Supine -EW Bed Mobility Type 1 To -EW Bed Mobility to 1 Edge of bed -EW Level of Assistance 1 Minimum Assist -EW Bed Mobility Comments 1 Min A for trunk elevation -EW Bed Mobility From 2 Edge of bed -EW Bed Mobility Type 2 To -EW Bed Mobility to 2 Supine -EW Level of Assistance 2 Standby Assist -EW Bed Mobility Comments 2 For safety -EW Transfer Yes Gait belt not donned d/t drain placement -EW Transfer From 1 Sit -EW Transfer Type 1 To and from -EW Transfer to 1 Stand -EW Technique 1 Sit to stand;Stand to sit -EW Transfer Device 1 Wheeled walker -EW Transfer Level of Assistance 1 Minimum Assist -EW Trials/Comments 1 Min A for force production, VCs for safe hand placement with WW -EW Trials/Comments 2 Pt required Min A during fxl mobility with WW for safety/balance, VCs for safe use of WW -EW RUE Assessment WFL MMT NT -EW LUE Assessment WFL MMT NT -EW Comments Pt limited by decreased balance and safety awareness this date. Pt required Min A for safety/balance during ADLs and fxl mobility with WW. -EW Problem List Decreased endurance;Decreased safe judgment during ADL;Decreased balance;Decreased functional mobility;Decreased ADL independence;Decreased IADL independence -EW Barriers to Discharge Current Mobility Status;Home environment challenged;Decreased safety awareness -EW Plan Plan of care initiated;If this is the last note, consider this the discharge summary -EW OT Recommendation Group Home Facility -EW OT Recommendation/Plan Comments If pt declines placement, home with 24 hr supervision and HHOT for safety evaluation -EW OT Frequency 3-5x/wk -EW Treatment/Interventions ADL/IADL retraining;Balance Training;Cognitive retraining;Endurance training;Functional activity;Functional mobility training;Functional transfer training -EW OT - Next Appointment 12/24/19 -EW OT Evaluation Complete Yes -EW User Perdomo (r) = Recorded By, (t) = Taken By, (c) = Cosigned By Initials Name Effective Dates LISA Erazo 10/03/19 - OT Treatment Row Name 12/24/19 1001 Session Type Treatment -AL OT Received On 12/24/19 -AL Safe Environment Arm Band Checked;Bed Alarm placed and activated;Call Light within Reach;Notified RN;Session Completed Bedside;Patient found sitting in Chair;Overbed Table within Reach Patient left sitting in chair -AL Subjective Agreeable to Therapy -AL Family/Caregiver Present No -AL Precautions Fall risk -AL Precaution Handout Issued No -AL Pain Assessment No/denies pain -AL Balance Yes -AL Static Sitting-Balance Support Bilateral upper extremity supported;Feet supported -AL Static Sitting-Sitting Surface Chair -AL Static Sitting-Level of Assistance Distant supervision safety -AL Dynamic Sitting-Balance Support Unilateral upper extremity supported;Feet supported alternating unilateral reaching -AL Dynamic Sitting-Balance Forward lean;Reaching for objects -AL Dynamic Sitting-Sitting Surface Chair -AL Dynamic Sitting-Level of Assistance Distant supervision safety -AL Static Standing-Balance Support Bilateral upper extremity supported wheeled walker -AL Static Standing-Standing Surface Floor -AL Static Standing-Level of Assistance Minimum assistance steadying assistance -AL Dynamic Standing-Balance Support Unilateral upper extremity supported alternating unilateral reaching -AL Dynamic Standing-Balance Forward lean;Reaching for objects -AL Dynamic Standing-Standing Surface Floor -AL Dynamic Standing-Level of Assistance Minimum assistance steadying assistance -AL ADLS (WDL) X -AL Grooming: Where assessed -- standing in front of chair -AL Grooming: Level of assistance Minimum Assist Supervision of task, Min A balance -AL LE Dressing: Where assessed Sitting;Chair -AL LE Dressing: Level of assistance Minimum Assist Supervision for task, Min A balance -AL Toileting: Where assessed Toilet -AL Toileting: Level of assistance Moderate Assist Mod A task, Min A balance -AL Toileting: Assistance with Clothing management down;Clothing management up;Posterior -AL Bed Mobility No Patient found sitting in chair -AL Transfer Yes gait belt used for oob mobility -AL Transfer From 1 Sit;Chair with arms -AL Transfer Type 1 To and from -AL Transfer to 1 Stand -AL Technique 1 Sit to stand;Stand to sit -AL Transfer Device 1 Wheeled walker -AL Transfer Level of Assistance 1 Minimum Assist force production, control of descent -AL Trials/Comments 1 x 2 trials; Min verbal cues for wheeled walker use -AL Toilet Transfer From -- standing -AL Toilet Transfer Type To and from -AL Toilet Transfer to Standard toilet -AL Toilet Transfer Technique -- stand to sit, sit to stand -AL Toilet Transfer: Equipment Wheeled walker -AL Toilet Transfers Minimal assistance control of descent, force production -AL Toilet Transfers Comments Min verabl cues for wheeled walker use -AL Arousal/Alertness Alert;Appropriate responses to stimuli -AL Attention Span Attends with cues to redirect -AL Orientation Oriented X4 (person, place, time, situation) -AL Following Commands Follows one step commands without difficulty -AL Safety Judgment Decreased awareness of need for safety -AL Awareness of Errors Assistance required to identify errors made;Assistance required to correct errors made -AL Insight Fully aware of deficits -AL Problem Solving Assistance required to identify errors made;Assistance required to generate solutions -AL Compliance/Behavior Easy to engage -AL Comments Patient ambulated to bathroom with wheeled walker and occasional Min A for steadying assistance; patient experienced 1 LOB during bathrom mobiltiy and required Min A for steadying assistance; Patient was returned to chair; Patient completed grooming task standing in front of chair 2/2 decreased safety during room mobility -AL Problem List Decreased endurance;Decreased balance;Decreased ADL independence;Decreased IADL independence;Decreased functional mobility -AL Barriers to Discharge Current Mobility Status -AL Barrier Comments Fall Risk -AL Plan Continue with current plan;If this is the last note, consider this the discharge summary -AL OT Recommendation Group Home Facility -AL OT Frequency 3-5x/wk -AL Treatment/Interventions ADL/IADL retraining;Balance Training;Functional transfer training;Functional activity;Functional mobility training;Endurance training;Therapeutic activity;Strengthening;Therapeutic exercise;Transfer training -AL OT - Next Appointment 12/25/19 -AL User Perdomo (r) = Recorded By, (t) = Taken By, (c) = Cosigned By Initials Name Effective Dates AL Jody Antoni 10/03/19 - OT Notes (Notes from 12/26/19 through 12/28/19) No notes of this type exist for this encounter. , OT Eval and Treat Last Documented OT ASSESSMENT FLOWSHEET LAST DOCUMENTED (most recent) OT Evaluation - 12/28/19 0796 Cognition Orientation Oriented X4 (person, place, time, situation) OT TREATMENT FLOWSHEET LAST DOCUMENTED (most recent) OT Treatment - 12/28/19 0745 Cognition Orientation Oriented X4 (person, place, time, situation) OT Notes (Notes from 12/26/19 through 12/28/19) No notes of this type exist for this encounter. , PT Eval and Treat Last 72 Hours PT Evaluation No documentation. PT TREATMENT (last 168 hours) PT Treatment Row Name 12/24/19 1457 PT Last Visit Session Type Treatment -DC (r) GM (c) Safe Environment Arm Band Checked;Call Light within Reach;Notified RN;Patient found in Supine;Overbed Table within Reach;Bed Alarm placed and activated Pt left in supine with bed alarm/table/call light -DC (r) GM (c) Subjective Agreeable to Therapy -DC (r) GM (c) Family/Caregiver Present No -DC (r) GM (c) Precautions Precautions Fall risk -DC (r) GM (c) Activity Tolerance Activity Tolerance Comments TIMMY: easy -DC (r) GM (c) Cognition Arousal/Alertness Alert;Appropriate responses to stimuli -DC (r) GM (c) Following Commands Follows one step commands without difficulty -DC (r) GM (c) Balance Balance Yes -DC (r) GM (c) Static Sitting Balance Static Sitting-Balance Support No upper extremity supported;Feet supported -DC (r) GM (c) Static Sitting-Sitting Surface Bed -DC (r) GM (c) Static Sitting-Level of Assistance Distant supervision -DC (r) GM (c) Static Sitting-Comment/# of Minutes for safety -DC (r) GM (c) Static Standing Balance Static Standing-Balance Support Bilateral upper extremity supported w/w -DC (r) GM (c) Static Standing-Standing Surface Floor -DC (r) GM (c) Static Standing-Level of Assistance Minimum assistance -DC (r) GM (c) Static Standing-Comment/# of Minutes for balance/steadying -DC (r) GM (c) Equipment Use Equipment Use Comments gait belt used -DC (r) GM (c) Bed Mobility Bed Mobility Yes -DC (r) GM (c) Bed Mobility 1 Bed Mobility From 1 Supine -DC (r) GM (c) Bed Mobility Type 1 To and from -DC (r) GM (c) Bed Mobility to 1 Edge of bed -DC (r) GM (c) Level of Assistance 1 Standby Assist -DC (r) GM (c) Bed Mobility Comments 1 for safety -DC (r) GM (c) Transfers Transfer Yes -DC (r) GM (c) Transfer 1 Transfer From 1 Sit -DC (r) GM (c) Transfer Type 1 To and from -DC (r) GM (c) Transfer to 1 Stand -DC (r) GM (c) Technique 1 Sit to stand;Stand to sit -DC (r) GM (c) Transfer Device 1 Wheeled walker -DC (r) GM (c) Transfer Level of Assistance 1 Minimum Assist -DC (r) GM (c) Trials/Comments 1 Min A for force production to stand, controlled descent to sit, and verbal cues for technique -DC (r) GM (c) Ambulation Functional Ambulation Category 2 -DC (r) GM (c) Ambulation Yes -DC (r) GM (c) Ambulation 1 Distance (ft) 1 20 ft -DC (r) GM (c) Surface 1 Level tile -DC (r) GM (c) Device 1 Wheeled walker -DC (r) GM (c) Assistance 1 Minimum Assist -DC (r) GM (c) Gait: Requires assist with 1 Maintaining balance -DC (r) GM (c) Gait: Requires verbal cues to 1 Use assistive device safely -DC (r) GM (c) Quality of Gait 1 decreased step length, decreased vahid, wide CHERRY -DC (r) GM (c) Ambulation Comments 1 Short distance ambulated 2/2 pt needing increased assistance for balance during ambulation due to inattention to task -GM Stairs Stairs No -DC (r) GM (c) Assessment Prognosis Good -DC (r) GM (c) Problem List Gait deviations;Decreased strength;Decreased endurance;Impaired balance;Decreased mobility -DC (r) GM (c) Plan Plan Continue with current plan;If this is the last note, consider this the discharge summary -DC (r) GM (c) Recommendation/Plan PT Recommendation/Plan Group Home Facility -DC (r) GM (c) PT Frequency 3-5x/wk -DC (r) GM (c) Treatment/Interventions Balance Training;Bed mobility;Endurance training;Functional activity;Gait training;Stair training;Strengthening;Therapeutic activity;Therapeutic exercise;Transfer training -DC(r) GM (c) User Perdomo (r) = Recorded By, (t) = Taken By, (c) = Cosigned By Initials Name Effective Dates IGNACIO Bri Xin 09/19/19 - GM Mily Light DPT 06/10/19 - PT Notes (Notes from 12/26/19 through 12/28/19) No notes of this type exist for this encounter. , PT Eval and Treat Last Documented OT ASSESSMENT FLOWSHEET LAST DOCUMENTED (most recent) PT Evaluation - 12/28/19 0745 Cognition Orientation Oriented X4 (person, place, time, situation) PT TREATMENT (most recent) PT Treatment - 12/28/19 0745 Cognition Orientation Oriented X4 (person, place, time, situation) PT Notes (Notes from 12/26/19 through 12/28/19) No notes of this type exist for this encounter. * [facility] Note - Mariaa Pereyra LCSW - 12/28/2019 9:45 AM CDT Images from the original note were not included. Patient Information: Comprehensive Nursing Documentation Attending Provider: Eugene Oates MD Allergies: Penicillins Isolation: Contact Infection: MDR gram neg/ESBL (12/21/19) Code Status: FULL Ht: 180.3 cm (5' 11 ) Wt: 76.7 kg (169 lb 3.2 oz) Admission Cmt: None Principal Problem: Cholecystitis [K81.9] Intake/Output 12/25/19 0700 - 12/26/19 0659 12/26/19 0700 - 12/27/19 0659 12/27/19 0700 - 12/28/19 0659 Total Total 1739-0959 1044-6798 1496-0229 Total Intake (ml) 100 2080 110 110 -- 220 Output (ml) 1245 970 375 30 450 855 Net (ml) -1145 1110 -265 80 -340 -889 Last Weight -- -- -- -- 76.7 kg (169 lb 3.2 oz) -- Patient Lines/Drains/Airways Status Active Airway / Central venous catheter / Drain / Epidural cathether / Intraosseous line / Peripherally inserted central catheter / Peripheral intravenous line / Arterial line Name: Placement date: Placement time: Site: Days: Closed/Suction/Open Drain 2 Right RUQ Bulb 10 Fr. 12/25/19 0829 RUQ 3 Midline Catheter 12/05/19 0000 Right Upper arm 12/05/19 0000 -- 23 Patient Lines/Drains/Airways Status Active Wound / Pressure ulcer / Johnson / Negative Pressure Wound Wound 12/19/19 Abscess Lower;Right Abdomen swollen, red, draining serosang, MD packed and dressed this AM Date First Assessed 12/19/19 Site: Abdomen Time First Assessed 914 Days: 9 Present on Hospital Admission: Yes Wound Type: Abscess Location Orientation: Lower;Right Wound Description (Comments): swollen, red, draining serosang, MDpacked and dressed this AM Assessments 12/28/1974412/27/19202212/26/192024 Wound Status Evolving Evolving Evolving Site Assessment ELIANA Clean;Dry;Red;Swelling Clean;Color appropriate for ethnicity;Dry Valentine-wound Assessment Dry;Intact Dry;Intact Dry;Intact Margins ELIANA ELIANA ELIANA Closure Unable to assess Unable to assess Unable to assess Drainage Amount None None None Dressing Status Clean/Dry/Intact Clean/Dry/Intact Clean/Dry/Intact Dressing Gauze Moisture wicking Moisture wicking Interventions -- -- Other (Comment) Pressure Ulcer/Pressure Injury 12/19/19 Right Buttocks stg 2 blanca size, pink, single thickness, allevyn Date First Assessed 12/19/19 Site: Buttocks Time First Assessed 15 Days: 9 Present on Hospital Admission: Yes Present on Transfer to Nursing Division: Yes Location Orientation: Right Wound Description (Comments): stg 2 blanca size, pink, single thickness, allevyn Assessments 12/27/19202212/26/19202412/26/19 1515 Pressure Ulcer Status Healing Evolving -- Description Non-intact, shallow ulcer (c/w Stage 2, open, no depth, no slough) Non-intact, red/pinkwound bed (c/w Stage 2, open, no depth, no slough) -- Staging Stage 2 Stage 2 -- Valentine-wound Assessment ELIANA Dry;Intact -- Margins ELIANA Unattached edges -- Drainage Amount None None None Dressing Status Clean/Dry/Intact Clean/Dry/Intact Changed;Clean/Dry/Intact Dressing/Intervention Other (Comment) Other (Comment) -- Pressure Ulcer/Pressure Injury 12/19/19 Left Buttocks sm open area, stg 2, pink, allevyn Date First Assessed 12/19/19 Site: Buttocks Time First Assessed 0915 Days: 9 Present on Hospital Admission: Yes Present on Transfer to Nursing Division: Yes Location Orientation: Left Wound Description (Comments): sm open area, stg 2, pink, allevyn Assessments 12/27/19202212/26/19202412/26/19 1515 Pressure Ulcer Status Healing Evolving -- Description Non-intact, shallow ulcer (c/w Stage 2, open, no depth, no slough) Non-intact, red/pinkwound bed (c/w Stage 2, open, no depth, no slough) -- Staging Stage 2 Stage 2 -- Valentine-wound Assessment ELIANA Dry;Intact -- Margins ELIANA Unattached edges -- Drainage Amount None None None Dressing Status Clean/Dry/Intact Clean/Dry/Intact Changed;Clean/Dry/Intact Dressing/Intervention Other (Comment) Other (Comment) -- Hardin Fall Risk Most Recent Value Auto Low/High - if selected proceed to interventions High risk-per unit/hospital protocol ............filed at 12/27/20192022 History of Falling 25 ............filed at 12/27/20192022 Secondary Diagnosis 15 ............filed at 12/27/20192022 Ambulatory Aids 0 ............filed at 12/27/20192022 Intravenous Therapy/Heparin/Saline Lock 20 ............filed at 12/27/20192022 Gait/Transferring 10 ............filed at 12/27/20192022 Mental Status 0 ............filed at 12/27/20192022 Hardin Fall Risk Score 50 ............filed at 12/27/20192022 Vital Signs 12/26 0700 - 12/27 0659 12/27 07 - 12/27 0945 Most Recent Temp (??C) 36.4 - 37.1 36.4 (97.5) Pulse 76 - 104 79 79 Resp 16 18 18 SpO2 (%) 95 - 98 97 97 BP 132/107 - 150/109 147/103 147/103 Comment: Morning BP meds given MAP (mmHg) 101 - 123 103 Default Flowsheet Data (most recent) Endurance Tests No documentation. Default Flowsheet Data (most recent) Balance Tests - 12/22/19 0936 [place] Sitting Balance 0 Arises 0 Attempts to Arise 0 Immediate Standing Balance (First 5 Seconds) 0 Standing Balance 0 Nudged 0 NT Eyes Closed 0 NT Turned 360 Degrees: Steadiness 0 Turned 360 Degrees: Continuity of Steps 0 Sitting Down 1 Balance Score 1 Nursing Nutrition None Nursing Mobility Activity 12/27 0742 Resting in bed 12/27 0615 Resting in bed;Sleeping 12/27 0530 Resting in bed;Sleeping 12/27 0415 Resting in bed;Sleeping 12/27 0330 Resting in bed;Sleeping 12/27 0215 Resting in bed;Sleeping 12/27 0130 Resting in bed;Sleeping 12/27 0015 Resting in bed;Sleeping 12/26 2345 Resting in bed;Sleeping 12/26 2214 Resting in bed;Sleeping 12/26 2130 Resting in bed;Sleeping 12/26 2022 Resting in bed 12/26 1438 Resting in bed 12/26 1207 Ambulate in room;Chair 12/26 0615 Resting in bed;Sleeping 12/26 0530 Resting in bed;Sleeping 12/26 0415 Resting in bed;Sleeping 12/26 0330 Resting in bed;Sleeping 12/26 0215 Resting in bed;Sleeping 12/26 0130 Resting in bed;Sleeping 12/26 0015 Resting in bed;Sleeping 12/25 2345 Resting in bed;Sleeping 12/25 2215 Resting in bed;Sleeping 12/25 2130 Resting in bed;Sleeping 12/25 2024 Resting in bed 12/25 0930 Resting in bed 12/24 2224 Sleeping 12/24 0950 Resting in bed Level of Assistance 12/27 0742 Minimal assist, patient does 75% or more 12/26 2022 Minimal assist, patient does 75% or more 12/25 2024 Minimal assist, patient does 75% or more 12/25 0830 Minimal assist, patient does 75% or more 12/24 2224 Minimal assist, patient does 75% or more 09/18 0950 Minimal assist, patient does 75% or more Assistive Device 12/27 0742 None 12/26 2022 None 12/25 2024 None Repositioned 12/27 0742 Turns self 12/27 0615 Turns self;Semi Bird's 12/27 0530 Turns self;Semi Bird's 12/27 0415 Turns self;Semi Bird's 12/27 0330 Turns self;Semi Bird's 12/27 0215 Turns self;Semi Bird's 12/27 0130 Turns self;Semi Bird's 12/27 0015 Turns self;Semi Bird's 12/26 2345 Turns self;Semi Bird's 12/26 2215 Turns self;Semi Bird's 12/26 2130 Turns self;Semi Bird's 12/26 2022 Turns self;Semi Bird's 12/26 0615 Turns self;Semi Bird's 12/26 0530 Turns self;Semi Bird's 12/26 0415 Turns self;Semi Bird's 12/26 0330 Turns self;Semi Bird's 12/26 0215 Turns self;Semi Bird's 12/26 0130 Turns self;Semi Bird's 12/26 0015 Turns self;Semi Bird's 12/25 2345 Turns self;Semi Bird's 12/25 2215 Turns self;Semi Bird's 12/25 2130 Turns self;Semi Bird's 12/255 Turns self;Semi Bird's 12/25 0930 Turns self;Semi Bird's 12/24 2225 Turns self 12/24 0950 Turns self;Semi Bird's Positioning Frequency 12/27 0742 Able to turn self 12/27 0615 Able to turn self 12/27 0530 Able to turn self 12/27 0415 Able to turn self 12/27 0330 Able to turn self 12/27 0215 Able to turn self 12/27 0130 Able to turn self 12/27 0015 Able to turn self 12/26 2345 Able to turn self 12/26 2215 Able to turn self 12/26 2130 Able to turn self 12/26 2022 Able to turn self 12/26 1100 Able to turn self 12/26 0615 Able to turn self 12/26 0530 Able to turn self 12/26 0415 Able to turn self 12/26 0330 Able to turn self 12/26 0215 Able to turn self 12/26 0130 Able to turn self 12/26 0015 Able to turn self 12/25 2345 Able to turn self 12/25 2215 Able to turn self 12/25 2130 Able to turn self 12/25 2025 Able to turn self 12/25 0930 Able to turn self 12/24 2225 Able to turn self 12/24 0950 Able to turn self Head of Bed Elevated 12/27 0742 Self regulated 12/27 0615 Self regulated 12/27 0530 Self regulated 12/27 0415 Self regulated 12/27 0330 Self regulated 12/27 0215 Self regulated 12/27 0130 Self regulated 12/27 0015 Self regulated 12/26 2345 Self regulated 12/26 2215 Self regulated 12/26 2130 Self regulated 12/26 2023 Self regulated 12/26 0615 Self regulated 12/26 0530 Self regulated 12/26 0415 Self regulated 12/26 0330 Self regulated 12/26 0215 Self regulated 12/26 0130 Self regulated 12/26 0015 Self regulated 12/25 2345 Self regulated 12/25 2215 Self regulated 12/25 2130 Self regulated 12/25 2025 Self regulated 12/25 0930 Self regulated 12/24 2225 Self regulated 12/24 0950 Self regulated Range of Motion 12/27 0742 Active;All extremities 12/25 09 Active;All extremities 12/24 0950 Active;All extremities Type of Device 12/24 2224 Mechanical compression Mechanical Compression Site 12/24 2224 Bilateral Mechanical Compression Type 12/24 2224 IPC/SCD Mechanical Compression Status 12/24 2224 Off , Meds and Admin Active Only All Meds/Most Recent Administrations sodium chloride 0.9% flush 0.5-20 mL [[id number]] Ordering Provider: Hola Weinstein MD Status: Verified Ordered On: 12/18/192102 Start: 12/18/192199 Dose (Remaining/Total): 0.5-20 mL (--/--) Route: intra-catheter Frequency: Every 8 hours scheduled Rate/Duration: -- / -- Admin Instructions: Flush volume based on line type and size. Timestamps Action Dose Route Other Information 12/25/19 0534 Given 10 mL intra-catheter Performed by: Jane Hager RN Scanned Package: [id number] sodium chloride 0.9% flush 0.5-20 mL [[id number]] Ordering Provider: Hola Weinstein MD Status: Verified Ordered On: 12/18/19 210 Start: 12/18/19 2100 Dose (Remaining/Total): 0.5-20 mL (--/--) Route: intra-catheter Frequency: As needed Rate/Duration: -- / -- Admin Instructions: Flush volume based on line type and size. Flush before and after each use. (No admins recorded for this medication) metroNIDAZOLE (FLAGYL) 500 mg/100 mL in sodium chloride (premix) 500 mg [[id number]] Ordering Provider: Hloa Weinstein MD Status: Completed (Past End Date/Time) Ordered On: 12/18/192158 Starts/Ends: 12/18/192229 - 12/19/19 0115 Dose (Remaining/Total): 500 mg (0/1) Route: intravenous Frequency: Once Rate/Duration: 200 mL/hr / 30 Minutes Admin Instructions: Room temperature only Timestamps Action Dose / Rate / Duration Route Other Information 12/19/19 0045 New Bag 500 mg 200 mL/hr 30 Minutes intravenous Performed by: Sada Jorge RN magnesium sulfate 4 g/100 mL in water (premix) 4 g [[id number]] Ordering Provider: Hola Weinstein MD Status: Completed (Past End Date/Time) Ordered On: 12/18/19 2344 Starts/Ends: 12/19/19 0015 - 12/19/19 0310 Dose (Remaining/Total): 4 g (0/1) Route: intravenous Frequency: Once Rate/Duration: -- / 90 Minutes Timestamps Action Dose / Duration Route Other Information 12/19/19 0140 New Bag 4 g 90 Minutes intravenous Performed by: Sada Jorge RN potassium chloride 40 mEq/520 mL in sodium chloride 0.9% (premix) 40 mEq [[id number]] Ordering Provider: Hola Weinstein MD Status: Completed (Past End Date/Time) Ordered On: 12/18/192343 Starts/Ends: 12/19/19 0015 - 12/19/19 0540 Dose (Remaining/Total): 40 mEq (0/1) Route: intravenous Frequency: Once Rate/Duration: 130 mL/hr / 4 Hours Admin Instructions: Total dose = 60 mEq Timestamps Action Dose / Rate / Duration Route Other Information 12/19/19 0140 New Bag 40 mEq 130 mL/hr 4 Hours intravenous Performed by: Sada Jorge RN potassium chloride 20 mEq/260 mL in sodium chloride 0.9% (premix) 20 mEq [[id number]] Ordering Provider: Hola Weinstein MD Status: Completed (Past End Date/Time) Ordered On: 12/18/192343 Starts/Ends: 12/19/19 0414 - 12/19/19 1017 Dose (Remaining/Total): 20 mEq (0/1) Route: intravenous Frequency: Once Rate/Duration: -- / 2 Hours Admin Instructions: Total dose = 60 mEq. Start immediately after first potassium chloride infusion ends. Timestamps Action Dose / Duration Route Other Information 12/19/19 0817 New Bag 20 mEq 2 Hours intravenous Performed by: Tanja Garcia RN enoxaparin (LOVENOX) syringe 40 mg [[id number]] Ordering Provider: Gato Hamilton MD Status: Dispensed Ordered On: 12/19/19 0603 Start: 12/19/19 2100 Dose (Remaining/Total): 40 mg (--/--) Route: subcutaneous Frequency: Daily (for enoxaparin) Rate/Duration: -- / -- Timestamps Action Dose Route / Site Other Information 12/27/192022 Given 40 mg subcutaneous Left Lower Abdomen Performed by: Trisha Amezcua RN Scanned Package: [id number] sodium chloride 0.9% flush 0.5-20 mL [[id number]] Ordering Provider: Byron Begum MD Status: Verified Ordered On: 12/19/19 1503 Start: 12/19/19 1545 Dose (Remaining/Total): 0.5-20 mL (--/--) Route: intra-catheter Frequency: Every 8 hours scheduled Rate/Duration: -- / -- Admin Instructions: Flush volume based on line type and size. Timestamps Action Dose Route Other Information 12/26/19 0617 Given 10 mL intra-catheter Performed by: Jane Hager RN Scanned Package: [id number] sodium chloride 0.9% flush 0.5-20 mL [[id number]] Ordering Provider: Byron Begum MD Status: Verified Ordered On: 12/19/19 150 Start: 12/19/19 1503 Dose (Remaining/Total): 0.5-20 mL (--/--) Route: intra-catheter Frequency: As needed Rate/Duration: -- / -- Admin Instructions: Flush volume based on line type and size. Flush before and after each use. (No admins recorded for this medication) midazolam (VERSED) preservative free injection [[id number]] Ordering Provider: Katie Gilbert MD Status: Completed (Past End Date/Time) Ordered On: 12/19/19 115 Frequency: Code/trauma/sedation medication Timestamps Action Dose Route Other Information 12/19/19 1152 Given 1 mg intravenous Performed by: Taryn Herrera RN fentaNYL (SUBLIMAZE) preservative free injection [[id number]] Ordering Provider: Katie Gilbert MD Status: Completed (Past End Date/Time) Ordered On: 12/19/19 1153 Frequency: Code/trauma/sedation medication Timestamps Action Dose Route Other Information 12/19/19 115 Given 50 mcg intravenous Performed by: Taryn Herrera RN lidocaine PF (XYLOCAINE) 10 mg/mL (1 %) preservative free injection [[id number]] Ordering Provider: Byron Begum MD Status: Completed (Past End Date/Time) Ordered On: 12/19/19 115 Frequency: Code/trauma/sedation medication Timestamps Action Dose Route Other Information 12/19/19 115 Given 10 mL Injection Performed by: Byron Begum MD Documented by: Taryn Herrera RN iothalamate meglumine (CONRAY) 60 % injection [[id number]] Ordering Provider: Byron Begum MD Status: Completed (Past End Date/Time) Ordered On: 12/19/191208 Frequency: Code/trauma/sedation medication Timestamps Action Dose Route / Site / Linked Line Other Information 12/19/191208 Given 10 mL -- Performed by: Byron Begum MD Documented by: Taryn Herrera RN ondansetron ODT (ZOFRAN-ODT) disintegrating tablet 4 mg [[id number]] Ordering Provider: LORI Wilson Status: Verified Ordered On: 12/20/19544 Start: 12/20/19544 Dose (Remaining/Total): 4 mg (--/--) Route: oral Frequency: Every 4 hours PRN Rate/Duration: -- / -- (No admins recorded for this medication) acetaminophen (TYLENOL) tablet 1,000 mg [[id number]] Ordering Provider: LORI Wilson Status: Verified Ordered On: 12/20/19544 Start: 12/20/19544 Dose (Remaining/Total): 1,000 mg (--/--) Route: oral Frequency: Every 6 hours PRN Rate/Duration: -- / -- (No admins recorded for this medication) potassium chloride (KAYCIEL) 1.3 mEq/mL oral liquid 40 mEq [[id number]] Ordering Provider: LORI Wilson Status: Completed (Past End Date/Time) Ordered On: 12/20/19545 Starts/Ends: 12/20/19629 - 12/20/19606 Dose (Remaining/Total): 40 mEq (0/1) Route: feeding tube Frequency: Once Rate/Duration: -- / -- Admin Instructions: Recommend to dilute each 15 mL with at least 6 ounces of water or juice prior to administration. Timestamps Action Dose Route Other Information 12/20/19606 Given 40 mEq feeding tube Performed by: Valeria Cole RN Scanned Package: 27125-695-39 aspirin enteric coated tablet 325 mg [[id number]] Ordering Provider: LORI Wilson Status: Dispensed Ordered On: 12/21/19 4 Start: 12/21/19899 Dose (Remaining/Total): 325 mg (--/--) Route: oral Frequency: Daily Rate/Duration: -- / -- Admin Instructions: Do not crush, chew, cut, dissolve, open or otherwise manipulate tablet/capsule. Timestamps Action Dose Route Other Information 12/28/19742 Given 325 mg oral Performed by: Prosper Hinojosa RN Scanned Package: 9912-9919-60 folic acid (FOLVITE) tablet 1 mg [[id number]] Ordering Provider: LORI Wilson Status: Dispensed Ordered On: 12/21/19753 Start: 12/21/19899 Dose (Remaining/Total): 1 mg (--/--) Route: oral Frequency: Daily Rate/Duration: -- / -- Timestamps Action Dose Route Other Information 12/28/19742 Given 1 mg oral Performed by: Prosper Hinojosa RN Scanned Package: 92685-459-43 magnesium oxide (MAG-OX) tablet 400 mg [[id number]] Ordering Provider: LORI Wilson Status: Dispensed Ordered On: 12/21/19753 Start: 12/21/19899 Dose (Remaining/Total): 400 mg (--/--) Route: oral Frequency: Daily Rate/Duration: -- / -- Admin Instructions: 1 tablet = Magnesium oxide 400 mg = 241.3 mg elemental magnesium Timestamps Action Dose Route Other Information 12/28/19742 Given 400 mg oral Performed by: Prosper Hinojosa RN Scanned Package: [id number] (PROTONIX) extended release tablet 40 mg [[id number]] Ordering Provider: LORI Wilson Status: Dispensed Ordered On: 12/21/19753 Start: 12/21/19899 Dose (Remaining/Total): 40 mg (--/--) Route: oral Frequency: Daily Rate/Duration: -- / -- Admin Instructions: Do not crush, chew, cut, dissolve, open or otherwise manipulate tablet/capsule. Timestamps Action Dose Route Other Information 12/28/19742 Given 40 mg oral Performed by: Prosper Hinojosa RN Scanned Package: 44346-214-68 polyethylene glycol (MIRALAX) packet 17 g [[id number]] Ordering Provider: LORI Wilson Status: Dispensed Ordered On: 12/21/19753 Start: 12/21/19899 Dose (Remaining/Total): 17 g (--/--) Route: oral Frequency: Daily Rate/Duration: -- / -- Timestamps Action Dose Route Other Information 12/28/19 0743 Given 17 g oral Performed by: Prosper Hinojosa RN Scanned Package: [address]-5 QUEtiapine (SEROquel) tablet 12.5 mg [[id number]] Ordering Provider: LORI Wilson Status: Dispensed Ordered On: 12/21/19753 Start: 12/21/192099 Dose (Remaining/Total): 12.5 mg (--/--) Route: oral Frequency: Nightly Rate/Duration: -- / -- Timestamps Action Dose Route Other Information 12/27/192022 Given 12.5 mg oral Performed by: Trisha Amezcua RN Scanned Package: 93808-466-73 thiamine (VITAMIN B1) tablet 100 mg [[id number]] Ordering Provider: LORI Wilson Status: Dispensed Ordered On: 12/21/19753 Start: 12/21/19899 Dose (Remaining/Total): 100 mg (--/--) Route: oral Frequency: Daily Rate/Duration: -- / -- Timestamps Action Dose Route Other Information 12/28/1943 Given 100 mg oral Performed by: Prosper Hinojosa RN Scanned Package: [id number] meropenem (MERREM) 1,000 mg/110 mL in sodium chloride 0.9% (premix) 1,000 mg [[id number]] Ordering Provider: LORI Wilson Status: Dispensed Ordered On: 12/21/19 103 Start: 12/21/19 1600 Dose (Remaining/Total): 1,000 mg (--/--) Route: intravenous Frequency: Every 8 hours scheduled Rate/Duration: 220 mL/hr / 30 Minutes Line Med Link Info Comment Midline Catheter 12/05/19 0000 Right Upper arm 12/21/19 1618 by Sharonda Guadarrama RN -- Timestamps Action Dose / Rate / Duration Route Other Information 12/28/19 0743 New Bag 1,000 mg 220 mL/hr 30 Minutes intravenous Performed by: Prosper Hinojosa RN levalbuterol (XOPENEX) 1.25 mg/3 mL nebulizer solution 1.25 mg [[id number]] Ordering Provider: LORI Wilson Status: Dispensed Ordered On: 12/21/19 1113 Start: 12/21/19 111 Dose (Remaining/Total): 1.25 mg (--/--) Route: nebulization Frequency: Every 6 hours PRN (respiratory care faculty) Rate/Duration: -- / -- (No admins recorded for this medication) dilTIAZem XR (CARDIZEM CD,DILACOR XR) 24 hour capsule 360 mg [[id number]] Ordering Provider: LORI Wilson Status: Dispensed Ordered On: 12/25/19 144 Start: 12/26/19 0900 Dose (Remaining/Total): 360 mg (--/--) Route: oral Frequency: Daily Rate/Duration: -- / -- Admin Instructions: Do not crush, chew, cut, dissolve, open or otherwise manipulate tablet/capsule. Timestamps Action Dose Route Other Information 12/28/19 0742 Given 360 mg oral Performed by: Prosper Hinojosa RN Scanned Package: 10592-751-54, 21405-619-85 metoprolol tartrate (LOPRESSOR) immediate release tablet 50 mg [[id number]] Ordering Provider: LORI Wilson Status: Dispensed Ordered On: 12/25/19 1444 Start: 12/25/19 2100 Dose (Remaining/Total): 50 mg (--/--) Route: oral Frequency: 2 times daily Rate/Duration: -- / -- Timestamps Action Dose Route Other Information 12/28/19 0742 Given 50 mg oral Performed by: Prosper Hinojosa RN Scanned Package: 46656-187-71 , Wound Info Only Patient Lines/Drains/Airways Status Active Wound / Pressure ulcer / Johnson / Negative Pressure Wound Wound 12/19/19 Abscess Lower;Right Abdomen swollen, red, draining serosang, MD packed and dressed this AM Date First Assessed 12/19/19 Site: Abdomen Time First Assessed 914 Days: 9 Present on Hospital Admission: Yes Wound Type: Abscess Location Orientation: Lower;Right Wound Description (Comments): swollen, red, draining serosang, MDpacked and dressed this AM Assessments 12/28/19 0745 12/27/19202212/26/192024 Wound Status Evolving Evolving Evolving Site Assessment ELIANA Clean;Dry;Red;Swelling Clean;Color appropriate for ethnicity;Dry Valentine-wound Assessment Dry;Intact Dry;Intact Dry;Intact Margins ELIANA ELIANA ELIANA Closure Unable to assess Unable to assess Unable to assess Drainage Amount None None None Dressing Status Clean/Dry/Intact Clean/Dry/Intact Clean/Dry/Intact Dressing Gauze Moisture wicking Moisture wicking Interventions -- -- Other (Comment) Pressure Ulcer/Pressure Injury 12/19/19 Right Buttocks stg 2 blanca size, pink, single thickness, allevyn Date First Assessed 12/19/19 Site: Buttocks Time First Assessed 914 Days: 9 Present on Hospital Admission: Yes Present on Transfer to Nursing Division: Yes Location Orientation: Right Wound Description (Comments): stg 2 blanca size, pink, single thickness, allevyn Assessments 12/27/19202212/26/19202412/26/19 1515 Pressure Ulcer Status Healing Evolving -- Description Non-intact, shallow ulcer (c/w Stage 2, open, no depth, no slough) Non-intact, red/pinkwound bed (c/w Stage 2, open, no depth, no slough) -- Staging Stage 2 Stage 2 -- Valentine-wound Assessment ELIANA Dry;Intact -- Margins ELIANA Unattached edges -- Drainage Amount None None None Dressing Status Clean/Dry/Intact Clean/Dry/Intact Changed;Clean/Dry/Intact Dressing/Intervention Other (Comment) Other (Comment) -- Pressure Ulcer/Pressure Injury 12/19/19 Left Buttocks sm open area, stg 2, pink, allevyn Date First Assessed 12/19/19 Site: Buttocks Time First Assessed 15 Days: 9 Present on Hospital Admission: Yes Present on Transfer to Nursing Division: Yes Location Orientation: Left Wound Description (Comments): sm open area, stg 2, pink, allevyn Assessments 12/27/19202212/26/19202412/26/19 1515 Pressure Ulcer Status Healing Evolving -- Description Non-intact, shallow ulcer (c/w Stage 2, open, no depth, no slough) Non-intact, red/pinkwound bed (c/w Stage 2, open, no depth, no slough) -- Staging Stage 2 Stage 2 -- Valentine-wound Assessment ELIANA Dry;Intact -- Margins ELIANA Unattached edges -- Drainage Amount None None None Dressing Status Clean/Dry/Intact Clean/Dry/Intact Changed;Clean/Dry/Intact Dressing/Intervention Other (Comment) Other (Comment) -- , Vitals Info Only Vital Signs 12/26 07 - 12/27 0659 12/27 699 - 12/27 0945 Most Recent Temp (??C) 36.4 - 37.1 36.4 (97.5) Pulse 76 - 104 79 79 Resp 16 18 18 SpO2 (%) 95 - 98 97 97 BP 132/107 - 150/109 147/103 147/103 Comment: Morning BP meds given MAP (mmHg) 101 - 123 103 , Oxygen Info Only Default Flowsheet Data (most recent) Endurance Tests No documentation. Default Flowsheet Data (last 48 hours) Oxygen Row Name 12/28/19 0739 12/28/19 0447 12/27/19 2338 12/27/19 1954 12/27/19 1800 Oxygen Therapy/Pulse Ox O2 Therapy -- None (Room air) None (Room air) None (Room air) -- SpO2 97 % 98 % 98 % 98 % 98 % Row Name 12/27/19 0825 12/27/19 0446 12/26/19 2340 12/26/19 2047 12/26/19 1700 Oxygen Therapy/Pulse Ox O2 Therapy -- -- -- -- None (Room air) SpO2 95 % 100 % 98 % 98 % 97 % Row Name 12/26/19 1100 Oxygen Therapy/Pulse Ox O2 Therapy None (Room air) SpO2 98 % * Plan of Care - Trisha Amezcua RN - 12/27/2019 9:19 PM CDT Goals: Clinical Goals for the Shift: Tolerate OOB activity without fall, Wound care, VSS Summary: Problem: Lack of Knowledge: Goal: Ability to state ways to decrease the risk of falls will improve 12/27/20192118 by Trisha Amezcua RN Outcome: Progressing 12/27/20192118 by Trisha Amezcua RN Outcome: Progressing Problem: Safety: Goal: Will remain free from falls 12/27/20192118 by Trisha Amezcua RN Outcome: Progressing 12/27/20192118 by Trisha Amezcua RN Outcome: Progressing Goal: Will remain free from injury from falls 12/27/20192118 by Trisha Amezcua RN Outcome: Progressing 12/27/20192118 by Trisha Amezcua RN Outcome: Progressing Goal: Will remain free from falls and injury in home environment 12/27/20192118 by Trisha Amezcua RN Outcome: Progressing 12/27/20192118 by Trisha Amezcua RN Outcome: Progressing Problem: Lack of Knowledge: Goal: Ability to develop a pain control plan will improve 12/27/20192118 by Trisha Amezcua RN Outcome: Progressing 12/27/20192118 by Trisha Amezcua RN Outcome: Progressing Goal: Ability to identify pain intensity on a pain scale and rate it consistently will improve 12/27/20192118 by Trisha Amezcua RN Outcome: Progressing 12/27/20192118 by Trisha Amezcua RN Outcome: Progressing Goal: Ability to notify healthcare provider of pain before it becomes unmanageable or unbearable will improve 12/27/20192118 by Trisha Amezcua RN Outcome: Progressing 12/27/20192118 by Trisha Amezcua RN Outcome: Progressing Problem: Medication: Goal: Satisfaction with pain management regimen will improve 12/27/20192118 by Trisha Amezcua RN Outcome: Progressing 12/27/20192118 by Trisha Amezcua RN Outcome: Progressing Problem: Sensory: Goal: Ability to identify factors that increase the pain will improve 12/27/20192118 by Trisha Amezcua RN Outcome: Progressing 12/27/20192118 by Trisha Amezcua RN Outcome: Progressing Goal: Pain level will decrease 12/27/20192118 by Trisha Amezcua RN Outcome: Progressing 12/27/20192118 by Trisha Amezcua RN Outcome: Progressing Problem: Activity: Goal: Risk for activity intolerance will decrease 12/27/20192118 by Trisha Amezcua RN Outcome: Progressing 12/27/20192118 by Trisha Amezcua RN Outcome: Progressing Problem: Lack of Knowledge: Goal: Knowledge of diagnostic tests will improve 12/27/20192118 by Trisha Amezcua RN Outcome: Progressing 12/27/20192118 by Trisha Amezcua RN Outcome: Progressing Goal: Knowledge of disease or condition will improve 12/27/20192118 by Trisha Amezcua RN Outcome: Progressing 12/27/20192118 by Trisha Amezcua RN Outcome: Progressing Goal: Knowledge of safety precautions will improve 12/27/20192118 by Trisha Amezcua RN Outcome: Progressing 12/27/20192118 by Trsiha Amezcua RN Outcome: Progressing Goal: Knowledge of the prescribed therapeutic regimen will improve 12/27/20192118 by Trisha Amezcua RN Outcome: Progressing 12/27/20192118 by Trisha Amezcua RN Outcome: Progressing Problem: Health Behavior: Goal: Ability to state signs and symptoms to report to health care provider will improve 12/27/20192118 by Trisha Amezcua RN Outcome: Progressing 12/27/20192118 by Trisha Amezcua RN Outcome: Progressing Problem: Physical Regulation: Goal: Ability to maintain clinical measurements within normal limits will improve 12/27/20192118 by Trisha Amezcua RN Outcome: Progressing 12/27/20192118 by Trisha Amezcua RN Outcome: Progressing Problem: Infection Risk: Goal: Will remain free from infection 12/27/20192118 by Trisha Amezcua RN Outcome: Progressing 12/27/20192118 by Trisha Amezcua RN Outcome: Progressing Problem: Safety: Goal: Ability to remain free from injury will improve 12/27/20192118 by Trisha Amezcua RN Outcome: Progressing 12/27/20192118 by Trisha Amezcua RN Outcome: Progressing Goal: Will remain free from falls 12/27/20192118 by Trisha Amezcua RN Outcome: Progressing 12/27/20192118 by Trisha Amezcua RN Outcome: Progressing Problem: Self-Care: Goal: Ability to participate in self-care as condition permits will improve 12/27/20192118 by Trisha Amezcua RN Outcome: Progressing 12/27/20192118 by Trisha Amezcua RN Outcome: Progressing Problem: Sensory: Goal: Pain level will decrease 12/27/20192118 by Trisha Amezcua RN Outcome: Progressing 12/27/20192118 by Trisha Amezcua RN Outcome: Progressing Goal: Ability to develop a pain control plan will improve 12/27/20192118 by Trisha Amezcua RN Outcome: Progressing 12/27/20192118 by Trisha Amezcua RN Outcome: Progressing Problem: Skin Integrity: Goal: Risk for impaired skin integrity will decrease 12/27/20192118 by Trisha Amezcua RN Outcome: Progressing 12/27/20192118 by Trisha Amezcua RN Outcome: Progressing Problem: Tissue Perfusion: Goal: Risk factors for ineffective tissue perfusion will decrease 12/27/20192118 by Trisha Amezcua RN Outcome: Progressing 12/27/20192118 by Trisha Amezcua RN Outcome: Progressing Problem: Activity: Goal: Mobility will improve 12/27/20192118 by Trisha Amezcua RN Outcome: Progressing 12/27/20192118 by Trisha Amezcua RN Outcome: Progressing Problem: Lack of Knowledge: Goal: Understanding of ways to prevent future skin breakdown will improve 12/27/20192118 by Trisha Amezcua RN Outcome: Progressing 12/27/20192118 by Trisha Amezcua RN Outcome: Progressing Problem: Skin Integrity: Goal: Risk for impaired skin integrity will decrease 12/27/20192118 by Trisha Amezcua RN Outcome: Progressing 12/27/20192118 by Trisha Amezcua RN Outcome: Progressing Goal: Ability to demonstrate warm and dry skin will improve 12/27/20192118 by Trisha Amezcua RN Outcome: Progressing 12/27/20192118 by Trisha Amezuca RN Outcome: Progressing Goal: Circulation will improve to fullest extent possible 12/27/20192118 by Trisha Amezcua RN Outcome: Progressing 12/27/20192118 by Trisha Amezcua RN Outcome: Progressing Problem: Health Behavior: Goal: Understanding of discharge needs will improve 12/27/20192118 by Trisha Amezcua RN Outcome: Progressing 12/27/20192118 by Trisha Amezcua RN Outcome: Progressing * Plan of Care - Kodak Gonzalez RN - 12/27/2019 11:05 AM CDT Goals: Clinical Goals for the Shift: Tolerate OOB activity without fall, Wound care, VSS Problem: Lack of Knowledge: Goal: Ability to state ways to decrease the risk of falls will improve Outcome: Progressing Problem: Safety: Goal: Will remain free from falls Outcome: Progressing Goal: Will remain free from injury from falls Outcome: Progressing Goal: Will remain free from falls and injury in home environment Outcome: Progressing Problem: Lack of Knowledge: Goal: Ability to develop a pain control plan will improve Outcome: Progressing Goal: Ability to identify pain intensity on a pain scale and rate it consistently will improve Outcome: Progressing Goal: Ability to notify healthcare provider of pain before it becomes unmanageable or unbearable will improve Outcome: Progressing Problem: Medication: Goal: Satisfaction with pain management regimen will improve Outcome: Progressing Problem: Sensory: Goal: Ability to identify factors that increase the pain will improve Outcome: Progressing Goal: Pain level will decrease Outcome: Progressing Problem: Activity: Goal: Risk for activity intolerance will decrease Outcome: Progressing Problem: Lack of Knowledge: Goal: Knowledge of diagnostic tests will improve Outcome: Progressing Goal: Knowledge of disease or condition will improve Outcome: Progressing Goal: Knowledge of safety precautions will improve Outcome: Progressing Goal: Knowledge of the prescribed therapeutic regimen will improve Outcome: Progressing Problem: Health Behavior: Goal: Ability to state signs and symptoms to report to health care provider will improve Outcome: Progressing Problem: Physical Regulation: Goal: Ability to maintain clinical measurements within normal limits will improve Outcome: Progressing Problem: Infection Risk: Goal: Will remain free from infection Outcome: Progressing Problem: Safety: Goal: Ability to remain free from injury will improve Outcome: Progressing Goal: Will remain free from falls Outcome: Progressing Problem: Self-Care: Goal: Ability to participate in self-care as condition permits will improve Outcome: Progressing Problem: Sensory: Goal: Pain level will decrease Outcome: Progressing Goal: Ability to develop a pain control plan will improve Outcome: Progressing Problem: Skin Integrity: Goal: Risk for impaired skin integrity will decrease Outcome: Progressing Problem: Tissue Perfusion: Goal: Risk factors for ineffective tissue perfusion will decrease Outcome: Progressing Problem: Activity: Goal: Mobility will improve Outcome: Progressing Problem: Lack of Knowledge: Goal: Understanding of ways to prevent future skin breakdown will improve Outcome: Progressing Problem: Skin Integrity: Goal: Risk for impaired skin integrity will decrease Outcome: Progressing Goal: Ability to demonstrate warm and dry skin will improve Outcome: Progressing Goal: Circulation will improve to fullest extent possible Outcome: Progressing Problem: Health Behavior: Goal: Understanding of discharge needs will improve Outcome: Progressing * Plan of Marilyn - Trisha Amezcua RN - 12/26/2019 9:34 PM CDT Goals: Clinical Goals for the Shift: rest, monitor I&Os and vitals Summary: Problem: Lack of Knowledge: Goal: Ability to state ways to decrease the risk of falls will improve Outcome: Progressing Problem: Safety: Goal: Will remain free from falls Outcome: Progressing Goal: Will remain free from injury from falls Outcome: Progressing Goal: Will remain free from falls and injury in home environment Outcome: Progressing Problem: Lack of Knowledge: Goal: Ability to develop a pain control plan will improve Outcome: Progressing Goal: Ability to identify pain intensity on a pain scale and rate it consistently will improve Outcome: Progressing Goal: Ability to notify healthcare provider of pain before it becomes unmanageable or unbearable will improve Outcome: Progressing Problem: Medication: Goal: Satisfaction with pain management regimen will improve Outcome: Progressing Problem: Sensory: Goal: Ability to identify factors that increase the pain will improve Outcome: Progressing Goal: Pain level will decrease Outcome: Progressing Problem: Activity: Goal: Risk for activity intolerance will decrease Outcome: Progressing Problem: Lack of Knowledge: Goal: Knowledge of diagnostic tests will improve Outcome: Progressing Goal: Knowledge of disease or condition will improve Outcome: Progressing Goal: Knowledge of safety precautions will improve Outcome: Progressing Goal: Knowledge of the prescribed therapeutic regimen will improve Outcome: Progressing Problem: Health Behavior: Goal: Ability to state signs and symptoms to report to health care provider will improve Outcome: Progressing Problem: Physical Regulation: Goal: Ability to maintain clinical measurements within normal limits will improve Outcome: Progressing Problem: Infection Risk: Goal: Will remain free from infection Outcome: Progressing Problem: Safety: Goal: Ability to remain free from injury will improve Outcome: Progressing Goal: Will remain free from falls Outcome: Progressing Problem: Self-Care: Goal: Ability to participate in self-care as condition permits will improve Outcome: Progressing Problem: Sensory: Goal: Pain level will decrease Outcome: Progressing Goal: Ability to develop a pain control plan will improve Outcome: Progressing Problem: Skin Integrity: Goal: Risk for impaired skin integrity will decrease Outcome: Progressing Problem: Tissue Perfusion: Goal: Risk factors for ineffective tissue perfusion will decrease Outcome: Progressing Problem: Activity: Goal: Mobility will improve Outcome: Progressing Problem: Lack of Knowledge: Goal: Understanding of ways to prevent future skin breakdown will improve Outcome: Progressing Problem: Skin Integrity: Goal: Risk for impaired skin integrity will decrease Outcome: Progressing Goal: Ability to demonstrate warm and dry skin will improve Outcome: Progressing Goal: Circulation will improve to fullest extent possible Outcome: Progressing Problem: Health Behavior: Goal: Understanding of discharge needs will improve Outcome: Progressing * Plan of Care - Calles, Irma Leroy RN - 12/26/2019 3:47 PM CDT Goals: Clinical Goals for the Shift: rest, monitor I&Os and vitals Summary: Problem: Lack of Knowledge: Goal: Ability to state ways to decrease the risk of falls will improve Outcome: Progressing Problem: Safety: Goal: Will remain free from falls Outcome: Progressing Goal: Will remain free from injury from falls Outcome: Progressing Goal: Will remain free from falls and injury in home environment Outcome: Progressing Problem: Lack of Knowledge: Goal: Ability to develop a pain control plan will improve Outcome: Progressing Goal: Ability to identify pain intensity on a pain scale and rate it consistently will improve Outcome: Progressing Goal: Ability to notify healthcare provider of pain before it becomes unmanageable or unbearable will improve Outcome: Progressing Problem: Medication: Goal: Satisfaction with pain management regimen will improve Outcome: Progressing Problem: Sensory: Goal: Ability to identify factors that increase the pain will improve Outcome: Progressing Goal: Pain level will decrease Outcome: Progressing Problem: Activity: Goal: Risk for activity intolerance will decrease Outcome: Progressing Problem: Lack of Knowledge: Goal: Knowledge of diagnostic tests will improve Outcome: Progressing Goal: Knowledge of disease or condition will improve Outcome: Progressing Goal: Knowledge of safety precautions will improve Outcome: Progressing Goal: Knowledge of the prescribed therapeutic regimen will improve Outcome: Progressing Problem: Health Behavior: Goal: Ability to state signs and symptoms to report to health care provider will improve Outcome: Progressing Problem: Physical Regulation: Goal: Ability to maintain clinical measurements within normal limits will improve Outcome: Progressing Problem: Infection Risk: Goal: Will remain free from infection Outcome: Progressing Problem: Safety: Goal: Ability to remain free from injury will improve Outcome: Progressing Goal: Will remain free from falls Outcome: Progressing Problem: Self-Care: Goal: Ability to participate in self-care as condition permits will improve Outcome: Progressing Problem: Sensory: Goal: Pain level will decrease Outcome: Progressing Goal: Ability to develop a pain control plan will improve Outcome: Progressing Problem: Skin Integrity: Goal: Risk for impaired skin integrity will decrease Outcome: Progressing Problem: Tissue Perfusion: Goal: Risk factors for ineffective tissue perfusion will decrease Outcome: Progressing Problem: Activity: Goal: Mobility will improve Outcome: Progressing Problem: Lack of Knowledge: Goal: Understanding of ways to prevent future skin breakdown will improve Outcome: Progressing Problem: Skin Integrity: Goal: Risk for impaired skin integrity will decrease Outcome: Progressing Goal: Ability to demonstrate warm and dry skin will improve Outcome: Progressing Goal: Circulation will improve to fullest extent possible Outcome: Progressing Problem: Health Behavior: Goal: Understanding of discharge needs will improve Outcome: Progressing * Plan of Care - Jane Haegr RN - 12/26/2019 3:27 AM CDT Goals: Clinical Goals for the Shift: Rest, monitor I/O, VSS Summary: Problem: Lack of Knowledge: Goal: Ability to state ways to decrease the risk of falls will improve Outcome: Progressing Problem: Safety: Goal: Will remain free from falls Outcome: Progressing Goal: Will remain free from injury from falls Outcome: Progressing Goal: Will remain free from falls and injury in home environment Outcome: Progressing Problem: Lack of Knowledge: Goal: Ability to develop a pain control plan will improve Outcome: Progressing Goal: Ability to identify pain intensity on a pain scale and rate it consistently will improve Outcome: Progressing Goal: Ability to notify healthcare provider of pain before it becomes unmanageable or unbearable will improve Outcome: Progressing Problem: Medication: Goal: Satisfaction with pain management regimen will improve Outcome: Progressing Problem: Sensory: Goal: Ability to identify factors that increase the pain will improve Outcome: Progressing Goal: Pain level will decrease Outcome: Progressing Problem: Activity: Goal: Risk for activity intolerance will decrease Outcome: Progressing Problem: Lack of Knowledge: Goal: Knowledge of diagnostic tests will improve Outcome: Progressing Goal: Knowledge of disease or condition will improve Outcome: Progressing Goal: Knowledge of safety precautions will improve Outcome: Progressing Goal: Knowledge of the prescribed therapeutic regimen will improve Outcome: Progressing Problem: Health Behavior: Goal: Ability to state signs and symptoms to report to health care provider will improve Outcome: Progressing Problem: Physical Regulation: Goal: Ability to maintain clinical measurements within normal limits will improve Outcome: Progressing Problem: Infection Risk: Goal: Will remain free from infection Outcome: Progressing Problem: Safety: Goal: Ability to remain free from injury will improve Outcome: Progressing Goal: Will remain free from falls Outcome: Progressing Problem: Self-Care: Goal: Ability to participate in self-care as condition permits will improve Outcome: Progressing Problem: Sensory: Goal: Pain level will decrease Outcome: Progressing Goal: Ability to develop a pain control plan will improve Outcome: Progressing Problem: Skin Integrity: Goal: Risk for impaired skin integrity will decrease Outcome: Progressing Problem: Tissue Perfusion: Goal: Risk factors for ineffective tissue perfusion will decrease Outcome: Progressing Problem: Activity: Goal: Mobility will improve Outcome: Progressing Problem: Lack of Knowledge: Goal: Understanding of ways to prevent future skin breakdown will improve Outcome: Progressing Problem: Skin Integrity: Goal: Risk for impaired skin integrity will decrease Outcome: Progressing Goal: Ability to demonstrate warm and dry skin will improve Outcome: Progressing Goal: Circulation will improve to fullest extent possible Outcome: Progressing Problem: Health Behavior: Goal: Understanding of discharge needs will improve Outcome: Progressing * Plan of Care - Mariaa Pereyra LCSW - 12/25/2019 2:47 PM CDT loft worker apprentice spoke with Annika Restrepo [phone] she confirmed she received the fax requesting SNF level of care. Clinical information is under review. loft worker apprentice sent faxed updates [phone]. loft worker apprentice confirmed that patient has been accepted at [facility] and they will have a bed on Saturday. loft worker apprentice updated patients Raine [phone] and provided an update. She is agreeable to this discharge plan. Updated [facility] team. Mariaa Pereyra LCSW Social Work [phone] * [facility] Note - Mariaa Pereyra LCSW - 12/25/2019 1:08 PM CDT Patient Information: OT Eval and Treat Last 72 Hours OT Evaluation Row Name 12/22/19935 Chart Reviewed Yes -EW Session Type Evaluation -EW OT Received On 12/22/19 -EW Safe Environment Arm Band Checked;Call Light within Reach;Notified RN;Patient found in Supine;Overbed Table within Reach;Bed in Lowest Position with Wheels locked;Bed rails up per protocol;Bed Alarm placed and activated Pt returned to supine, needs within reach -EW Subjective Agreeable to Therapy -EW Additional Pertinent History HPI: 69 y.o. 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, alcohol abuse, a-fib, hld, htn, current smoker -EW Family/Caregiver Present No -EW Occupational Therapy-Patient Goal Pt agreeable to goals presented by OT student -EW Precautions Fall risk -EW Type of Home House -EW Home Layout Multi-level Pt reports it is a split-level home -EW # of Steps-Railed 7 Pt reports 7 steps to bedroom, HR on R -EW Home Access Stairs to enter with rails -EW Entrance Stairs-Rails Right -EW Entrance Stairs-Number of Steps 1 -EW Bathroom Shower/Tub Walk-in shower with threshold -EW Bathroom Toilet Standard -EW Bathroom Equipment Grab bars in shower/tub;Built-in shower seat -EW Bathroom Accessibility Accessible via walker -EW Home Mobility Equipment Wheeled walker -EW Additional Comments Pt reports use of WW at baseline -EW Level of [place] Independent with ADLs;Independent functional transfers;Independent with ambulation;Independent with homemaking with ambulation Mod I with WW -EW Lives With Spouse -EW Receives Help From Spouse/Significant other FT assist available -EW Driving No -EW Mode of Transportation Car;Driven by others Pt reports spouse drives -EW ADL Assistance Independent -EW Instrumental ADL (IADL) Assistance Independent -EW Medical Management -- Pt reports requires assist from with pill box -EW 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 -EW Leisure Hobbies-yes (Comment) Pt reports he enjoys cooking -EW Fall within the last 6 months comment Pt reports 1 fall d/t tripping over a visitor during a democrat at home -EW Prior Function Comments Pt reports use of WW and grab bars at baseline, assist required for medication management, Mod I with all other ADLs/IADLs -EW ADLS (WDL) X -EW Grooming: Where assessed Standing at sink -EW Grooming: Level of assistance Minimum Assist ADL: Mod I Bal: Min A -EW Grooming: Assistance with Safety Min A for safety d/t decreased balance -EW LE Dressing: Where assessed Edge of bed -EW LE Dressing: Level of assistance Minimum Assist ADL: Mod I Bal: min -EW LE Dressing: Assistance with Safety;Increased time to complete;Requires assistive device for steadying Min A for balance in sitting/standing -EW Toileting: Where assessed Toilet -EW Toileting: Level of assistance Minimum Assist -EW Toileting: Assistance with Increased time to complete Min A for balance -EW Toilet Transfer From Bed -EW Toilet Transfer Type To and from -EW Toilet Transfer to Standard toilet -EW Toilet Transfer Technique Ambulating -EW Toilet Transfer: Equipment Wheeled walker -EW Toilet Transfers Minimal assistance -EW Toilet Transfers Comments Min A required for balance -EW Pain Assessment No/denies pain -EW Endurance Tolerates 10 - 20 min activity with multiple rests -EW Activity Tolerance Comments Timmy: pretty hard -EW Current Vision Does not wear glasses -EW Arousal/Alertness Alert;Appropriate responses to stimuli -EW Attention Span Attends with cues to redirect -EW Memory Decreased short term memory Recalled 3/5 components of name/address in SBT -EW Current communication Appears Intact -EW Orientation Oriented X4 (person, place, time, situation) -EW Following Commands Follows one step commands without difficulty -EW Safety Judgment Decreased awareness of need for safety -EW Awareness of Errors Assistance required to identify errors made -EW Insight Decreased awareness of deficits -EW Problem Solving Assistance required to identify errors made -EW Compliance/Behavior Easy to engage -EW Perseveration Not present -EW Light Touch WFL BUE -EW Numbness/Tingling No BUE -EW Serial Opposition -- Increased time required for accuracy -EW Hand Preference Left -EW Balance Yes -EW Static Sitting-Balance Support Bilateral upper extremity supported;Feet supported -EW Static Sitting-Sitting Surface Bed -EW Static Sitting-Level of Assistance Distant supervision -EW Static Sitting-Comment/# of Minutes For safety -EW Dynamic Sitting-Balance Support Unilateral upper extremity supported;Feet supported -EW Dynamic Sitting-Balance Lateral lean;Reaching for objects -EW Dynamic Sitting-Sitting Surface Bed -EW Dynamic Sitting-Level of Assistance Minimum assistance -EW Dynamic Sitting-Comments Min A for balance d/t lateral lean to R -EW Static Standing-Balance Support Bilateral upper extremity supported WW -EW Static Standing-Standing Surface Floor -EW Static Standing-Level of Assistance Contact guard -EW Static Standing-Comment/# of Minutes For safety/balance -EW Dynamic Standing-Balance Support Bilateral upper extremity supported;Unilateral upper extremity supported WW -EW Dynamic Standing-Balance Lateral lean;Reaching for objects -EW Dynamic Standing-Standing Surface Floor -EW Dynamic Standing-Level of Assistance Minimum assistance -EW Dynamic Standing-Comments Min A required d/t decreased balance -EW Bed Mobility Yes -EW Bed Mobility From 1 Supine -EW Bed Mobility Type 1 To -EW Bed Mobility to 1 Edge of bed -EW Level of Assistance 1 Minimum Assist -EW Bed Mobility Comments 1 Min A for trunk elevation -EW Bed Mobility From 2 Edge of bed -EW Bed Mobility Type 2 To -EW Bed Mobility to 2 Supine -EW Level of Assistance 2 Standby Assist -EW Bed Mobility Comments 2 For safety -EW Transfer Yes Gait belt not donned d/t drain placement -EW Transfer From 1 Sit -EW Transfer Type 1 To and from -EW Transfer to 1 Stand -EW Technique 1 Sit to stand;Stand to sit -EW Transfer Device 1 Wheeled walker -EW Transfer Level of Assistance 1 Minimum Assist -EW Trials/Comments 1 Min A for force production, VCs for safe hand placement with WW -EW Trials/Comments 2 Pt required Min A during fxl mobility with WW for safety/balance, VCs for safe use of WW -EW RUE Assessment WFL MMT NT -EW LUE Assessment WFL MMT NT -EW Comments Pt limited by decreased balance and safety awareness this date. Pt required Min A for safety/balance during ADLs and fxl mobility with WW. -EW Problem List Decreased endurance;Decreased safe judgment during ADL;Decreased balance;Decreased functional mobility;Decreased ADL independence;Decreased IADL independence -EW Barriers to Discharge Current Mobility Status;Home environment challenged;Decreased safety awareness -EW Plan Plan of care initiated;If this is the last note, consider this the discharge summary -EW OT Recommendation Group Home Facility -EW OT Recommendation/Plan Comments If pt declines placement, home with 24 hr supervision and HHOT for safety evaluation -EW OT Frequency 3-5x/wk -EW Treatment/Interventions ADL/IADL retraining;Balance Training;Cognitive retraining;Endurance training;Functional activity;Functional mobility training;Functional transfer training -EW OT - Next Appointment 12/24/19 -EW OT Evaluation Complete Yes -EW User Perdomo (r) = Recorded By, (t) = Taken By, (c) = Cosigned By Initials Name Effective Dates EW Taryn Westerheide 10/03/19 - OT Treatment Row Name 12/24/19 1001 Session Type Treatment -AL OT Received On 12/24/19 -AL Safe Environment Arm Band Checked;Bed Alarm placed and activated;Call Light within Reach;Notified RN;Session Completed Bedside;Patient found sitting in Chair;Overbed Table within Reach Patient left sitting in chair -AL Subjective Agreeable to Therapy -AL Family/Caregiver Present No -AL Precautions Fall risk -AL Precaution Handout Issued No -AL Pain Assessment No/denies pain -AL Balance Yes -AL Static Sitting-Balance Support Bilateral upper extremity supported;Feet supported -AL Static Sitting-Sitting Surface Chair -AL Static Sitting-Level of Assistance Distant supervision safety -AL Dynamic Sitting-Balance Support Unilateral upper extremity supported;Feet supported alternating unilateral reaching -AL Dynamic Sitting-Balance Forward lean;Reaching for objects -AL Dynamic Sitting-Sitting Surface Chair -AL Dynamic Sitting-Level of Assistance Distant supervision safety -AL Static Standing-Balance Support Bilateral upper extremity supported wheeled walker -AL Static Standing-Standing Surface Floor -AL Static Standing-Level of Assistance Minimum assistance steadying assistance -AL Dynamic Standing-Balance Support Unilateral upper extremity supported alternating unilateral reaching -AL Dynamic Standing-Balance Forward lean;Reaching for objects -AL Dynamic Standing-Standing Surface Floor -AL Dynamic Standing-Level of Assistance Minimum assistance steadying assistance -AL ADLS (WDL) X -AL Grooming: Where assessed -- standing in front of chair -AL Grooming: Level of assistance Minimum Assist Supervision of task, Min A balance -AL LE Dressing: Where assessed Sitting;Chair -AL LE Dressing: Level of assistance Minimum Assist Supervision for task, Min A balance -AL Toileting: Where assessed Toilet -AL Toileting: Level of assistance Moderate Assist Mod A task, Min A balance -AL Toileting: Assistance with Clothing management down;Clothing management up;Posterior -AL Bed Mobility No Patient found sitting in chair -AL Transfer Yes gait belt used for oob mobility -AL Transfer From 1 Sit;Chair with arms -AL Transfer Type 1 To and from -AL Transfer to 1 Stand -AL Technique 1 Sit to stand;Stand to sit -AL Transfer Device 1 Wheeled walker -AL Transfer Level of Assistance 1 Minimum Assist force production, control of descent -AL Trials/Comments 1 x 2 trials; Min verbal cues for wheeled walker use -AL Toilet Transfer From -- standing -AL Toilet Transfer Type To and from -AL Toilet Transfer to Standard toilet -AL Toilet Transfer Technique -- stand to sit, sit to stand -AL Toilet Transfer: Equipment Wheeled walker -AL Toilet Transfers Minimal assistance control of descent, force production -AL Toilet Transfers Comments Min verabl cues for wheeled walker use -AL Arousal/Alertness Alert;Appropriate responses to stimuli -AL Attention Span Attends with cues to redirect -AL Orientation Oriented X4 (person, place, time, situation) -AL Following Commands Follows one step commands without difficulty -AL Safety Judgment Decreased awareness of need for safety -AL Awareness of Errors Assistance required to identify errors made;Assistance required to correct errors made -AL Insight Fully aware of deficits -AL Problem Solving Assistance required to identify errors made;Assistance required to generate solutions -AL Compliance/Behavior Easy to engage -AL Comments Patient ambulated to bathroom with wheeled walker and occasional Min A for steadying assistance; patient experienced 1 LOB during bathrom mobiltiy and required Min A for steadying assistance; Patient was returned to chair; Patient completed grooming task standing in front of chair 2/2 decreased safety during room mobility -AL Problem List Decreased endurance;Decreased balance;Decreased ADL independence;Decreased IADL independence;Decreased functional mobility -AL Barriers to Discharge Current Mobility Status -AL Barrier Comments Fall Risk -AL Plan Continue with current plan;If this is the last note, consider this the discharge summary -AL OT Recommendation Group Home Facility -AL OT Frequency 3-5x/wk -AL Treatment/Interventions ADL/IADL retraining;Balance Training;Functional transfer training;Functional activity;Functional mobility training;Endurance training;Therapeutic activity;Strengthening;Therapeutic exercise;Transfer training -AL OT - Next Appointment 12/25/19 -AL User Perdomo (r) = Recorded By, (t) = Taken By, (c) = Cosigned By Initials Name Effective Dates AL Jody Corrales 10/03/19 - OT Notes (Notes from 12/23/19 through 12/25/19) No notes of this type exist for this encounter. , OT Eval and Treat Last Documented OT ASSESSMENT FLOWSHEET LAST DOCUMENTED (most recent) OT Evaluation - 12/25/19 0740 Pain Assessment Pain Assessment No/denies pain OT TREATMENT FLOWSHEET LAST DOCUMENTED (most recent) OT Treatment - 12/25/19 0740 Pain Assessment Pain Assessment No/denies pain OT Notes (Notes from 12/23/19 through 12/25/19) No notes of this type exist for this encounter. , PT Eval and Treat Last 72 Hours PT Evaluation Row Name 12/21/19 0753 Session Type Evaluation -FJ Safe Environment Arm Band Checked;Bed Alarm placed and activated;Call Light within Reach;Session Completed Bedside;Patient found in Supine pt left resting in bed -FJ Subjective Agreeable to Therapy -FJ Physical Therapy-Patient Goal no goal provided -FJ Precautions Fall risk -FJ Type of Home House -FJ Home Layout Multi-level -FJ # of Steps-Railed 7 -FJ Home Access Level entry -FJ Home Mobility Equipment Wheeled walker -FJ Level of [place] Independent with ambulation mod I -FJ Lives With Spouse -FJ Receives Help From Spouse/Significant other as needed -FJ Fall within the last 6 months comment 2 recent falls. pt reprots tripping over a visitor during a home democrat. -FJ Prior Function Comments Pt reports use of walker for home ambulation, along with grab bars as needed. -FJ Activity Tolerance Comments RPE: somewhat hard -FJ Pain Assessment No/denies pain -FJ Arousal/Alertness Alert -FJ Orientation Oriented X4 (person, place, time, situation) -FJ Following Commands Follows multistep commands with repetition -FJ Compliance/Behavior Easy to engage -FJ Light Touch WFL BLE distal to knees -FJ Numbness/Tingling No -FJ Sensation Comments (-) open wounds/edema BLE distal to knees -FJ Balance Yes -FJ Static Sitting-Balance Support Feet supported;Bilateral upper extremity supported -FJ Static Sitting-Sitting Surface Bed -FJ Static Sitting-Level of Assistance Distant supervision -FJ Static Standing-Balance Support Bilateral upper extremity supported -FJ Static Standing-Standing Surface Floor -FJ Static Standing-Level of Assistance Contact guard -FJ Static Standing-Comment/# of Minutes with WW, therapist assist provided to ensure safe/stable standing balance -FJ Bed Mobility From 1 Supine -FJ Bed Mobility Type 1 To -FJ Bed Mobility to 1 Edge of bed -FJ Level of Assistance 1 Minimum Assist -FJ Bed Mobility Comments 1 HOB flat, therapist assist to elevate pts trunk, no assist required to return to supine -FJ Transfer From 1 Bed -FJ Technique 1 Sit to stand;Stand to sit -FJ Transfer Device 1 Wheeled walker -FJ Transfer Level of Assistance 1 Minimum Assist -FJ Trials/Comments 1 therapist assist requried for force production, cues provided for safe hand placement -FJ Distance (ft) 1 20 -FJ Surface 1 Level tile -FJ Device 1 Wheeled walker -FJ Assistance 1 Minimum Assist -FJ Gait: Requires assist with 1 Maintaining balance -FJ Gait: Requires verbal cues to 1 Use assistive device safely;Prevent bumping into environmental barriers (hernandez/furniture);Utilize appropriate gait sequencing -FJ Quality of Gait 1 wide CHERRY, mild path deviations, lateral sway -FJ Ambulation Comments 1 pt declined further ambulation -FJ RLE Assessment WFL -FJ LLE Assessment WFL -FJ Equipment Use Comments gait belt donned -FJ Other PT Comments (S) Of note pt reports his would like for him to DC to a facility for rehabilitation. Pt states that he believes she is most concerned with his ability to negotiate the stairs within their home. At this time pt is an appropriate candidate for SNF. -FJ How much difficulty does the patient have: Turning over in bed 4 -FJ How much difficulty does the patient currently have: Sitting down and standing up from a chair witharms? 3 -FJ How much difficulty does the patient have: Moving from lying on back to sitting on the side of the bed? 3 -FJ How much difficulty does the patient have: Moving to and from a bed to a chair including wheelchair? 3 -FJ How much help does the patient currently need: Walk in hospital room? 3 -FJ How much help from another person does the patient currently need: Climbing 3-5 steps with a railing? 2 -FJ Total 6 Click Score (range 6-24) 18 -FJ Score Interpretation 41.05 -FJ Problem List Gait deviations;Decreased strength;Impaired balance;Decreased mobility;Decreased ADLs -FJ Problem List Comments Pt is a 69 y.o. male with cc abdominal wall abscess; s/p drain placement 12/18RUQ presenting with deficits in bed mobility, transfers, ambulation, and stair climbing due to the primary impairments noted above. These deficits will prevent full participation in home and community mobility. -FJ Barriers to Discharge Current Mobility Status;Home environment challenged -FJ Plan Plan of care initiated;If this is the last note, consider this the discharge summary -FJ PT Recommendation/Plan Group Home Facility -FJ PT Recommendation/Plan Comments pending gait/stair assessment -FJ PT Frequency 3-5x/wk -FJ Treatment/Interventions Balance Training;Bed mobility;Gait training;Strengthening;Therapeutic activity;Therapeutic exercise;Transfer training;Stair training - PT Evaluation Complete Yes - User Perdomo (r) = Recorded By, (t) = Taken By, (c) = Cosigned By Initials Name Effective Dates Elis Coley, PT 05/08/19 - PT TREATMENT (last 168 hours) PT Treatment Row Name 12/24/19 3747 PT Last Visit Session Type Treatment -DC (r) GM (c) Safe Environment Arm Band Checked;Call Light within Reach;Notified RN;Patient found in Supine;Overbed Table within Reach;Bed Alarm placed and activated Pt left in supine with bed alarm/table/call light -DC (r) GM (c) Subjective Agreeable to Therapy -DC (r) GM (c) Family/Caregiver Present No -DC (r) GM (c) Precautions Precautions Fall risk -DC (r) GM (c) Activity Tolerance Activity Tolerance Comments TIMMY: easy -DC (r) GM (c) Cognition Arousal/Alertness Alert;Appropriate responses to stimuli -DC (r) GM (c) Following Commands Follows one step commands without difficulty -DC (r) GM (c) Balance Balance Yes -DC (r) GM (c) Static Sitting Balance Static Sitting-Balance Support No upper extremity supported;Feet supported -DC (r) GM (c) Static Sitting-Sitting Surface Bed -DC (r) GM (c) Static Sitting-Level of Assistance Distant supervision -DC (r) GM (c) Static Sitting-Comment/# of Minutes for safety -DC (r) GM (c) Static Standing Balance Static Standing-Balance Support Bilateral upper extremity supported w/w -DC (r) GM (c) Static Standing-Standing Surface Floor -DC (r) GM (c) Static Standing-Level of Assistance Minimum assistance -DC (r) GM (c) Static Standing-Comment/# of Minutes for balance/steadying -DC (r) GM (c) Equipment Use Equipment Use Comments gait belt used -DC (r) GM (c) Bed Mobility Bed Mobility Yes -DC (r) GM (c) Bed Mobility 1 Bed Mobility From 1 Supine -DC (r) GM (c) Bed Mobility Type 1 To and from -DC (r) GM (c) Bed Mobility to 1 Edge of bed -DC (r) GM (c) Level of Assistance 1 Standby Assist -DC (r) GM (c) Bed Mobility Comments 1 for safety -DC (r) GM (c) Transfers Transfer Yes -DC (r) GM (c) Transfer 1 Transfer From 1 Sit -DC (r) GM (c) Transfer Type 1 To and from -DC (r) GM (c) Transfer to 1 Stand -DC (r) GM (c) Technique 1 Sit to stand;Stand to sit -DC (r) GM (c) Transfer Device 1 Wheeled walker -DC (r) GM (c) Transfer Level of Assistance 1 Minimum Assist -DC (r) GM (c) Trials/Comments 1 Min A for force production to stand, controlled descent to sit, and verbal cues for technique -DC (r) GM (c) Ambulation Functional Ambulation Category 2 -DC (r) GM (c) Ambulation Yes -DC (r) GM (c) Ambulation 1 Distance (ft) 1 20 ft -DC (r) GM (c) Surface 1 Level tile -DC (r) GM (c) Device 1 Wheeled walker -DC (r) GM (c) Assistance 1 Minimum Assist -DC (r) GM (c) Gait: Requires assist with 1 Maintaining balance -DC (r) GM (c) Gait: Requires verbal cues to 1 Use assistive device safely -DC (r) GM (c) Quality of Gait 1 decreased step length, decreased vahid, wide CHERRY -DC (r) GM (c) Ambulation Comments 1 Short distance ambulated 2/2 pt needing increased assistance for balance during ambulation due to inattention to task -GM Stairs Stairs No -DC (r) GM (c) Assessment Prognosis Good -DC (r) GM (c) Problem List Gait deviations;Decreased strength;Decreased endurance;Impaired balance;Decreased mobility -DC (r) GM (c) Plan Plan Continue with current plan;If this is the last note, consider this the discharge summary -DC (r) GM (c) Recommendation/Plan PT Recommendation/Plan Group Home Facility -DC (r) GM (c) PT Frequency 3-5x/wk -DC (r) GM (c) Treatment/Interventions Balance Training;Bed mobility;Endurance training;Functional activity;Gait training;Stair training;Strengthening;Therapeutic activity;Therapeutic exercise;Transfer training -DC(r) GM (c) User Perdomo (r) = Recorded By, (t) = Taken By, (c) = Cosigned By Initials Name Effective Dates DC Bri Cwiklowski 09/19/19 - GM Mily Light DPT 06/10/19 - PT Notes (Notes from 12/23/19 through 12/25/19) 12/24/2019 4:11 PM Progress Notes signed by Mily Light DPT , PT Eval and Treat Last Documented OT ASSESSMENT FLOWSHEET LAST DOCUMENTED (most recent) PT Evaluation - 12/25/19 0740 Pain Assessment Pain Assessment No/denies pain PT TREATMENT (most recent) PT Treatment - 12/25/19 0740 Pain Assessment Pain Assessment No/denies pain PT Notes (Notes from 12/23/19 through 12/25/19) 12/24/2019 4:11 PM Progress Notes signed by Mily Light DPT * [facility] Note - Mariaa Pereyra LCSW - 12/25/2019 1:08 PM CDT Images from the original note were not included. Patient Information: Comprehensive Nursing Documentation Attending Provider: Eugene Oates MD Allergies: Penicillins Isolation: Contact Infection: MDR gram neg/ESBL (12/21/19) Code Status: FULL Ht: 180.3 cm (5' 11 ) Wt: 78.4 kg (172 lb 14.4 oz) Admission Cmt: None Principal Problem: Cholecystitis [K81.9] Intake/Output 12/22/19 07 - 12/23/19 0659 12/23/19 07 - 12/24/19 0659 12/24/19 0700 - 12/25/19 0659 12/25/19 0700 - 12/26/19 0659 Total Total 5923-9944 8353-9007 7713-5426 Total 0102-4247 2347-0514 5551-5005 Total Intake (ml) 30 0 -- -- 0 0 -- -- -- -- Output (ml) 755 480 280 40 100 420 505 -- -- 505 Net (ml) -725 -480 -280 -40 -100 -420 -505 -- -- -505 Last Weight 76.5 kg (168 lb 9.6 oz) 76.8 kg (169 lb 4.8 oz) -- -- 78.4 kg (172 lb 14.4 oz) -- -- ---- -- Patient Lines/Drains/Airways Status Active Airway / Central venous catheter / Drain / Epidural cathether / Intraosseous line / Peripherally inserted central catheter / Peripheral intravenous line / Arterial line Name: Placement date: Placement time: Site: Days: Closed/Suction/Open Drain 2 Right RUQ Bulb 10 Fr. 12/25/19 08 RUQ less than 1 Midline Catheter 12/05/19 0000 Right Upper arm 12/05/19 0000 -- 20 Patient Lines/Drains/Airways Status Active Wound / Pressure ulcer / Johnson / Negative Pressure Wound Wound 12/19/19 Abscess Lower;Right Abdomen swollen, red, draining serosang, MD packed and dressed this AM Date First Assessed 12/19/19 Site: Abdomen Time First Assessed 914 Days: 6 Present on Hospital Admission: Yes Wound Type: Abscess Location Orientation: Lower;Right Wound Description (Comments): swollen, red, draining serosang, MDpacked and dressed this AM Pressure Ulcer/Pressure Injury 12/19/19 Right Buttocks stg 2 blanca size, pink, single thickness, allevyn Date First Assessed 12/19/19 Site: Buttocks Time First Assessed 914 Days: 6 Present on Hospital Admission: Yes Present on Transfer to Nursing Division: Yes Location Orientation: Right Wound Description (Comments): stg 2 blanca size, pink, single thickness, allevyn Assessments 12/24/19212912/24/1982212/23/192024 Pressure Ulcer Status Evolving Evolving Evolving Description Non-intact, red/pink wound bed (c/w Stage 2, open, no depth, no slough) Non-intact, red/pink wound bed (c/w Stage 2, open, no depth, no slough) -- Staging Stage 2 Stage 2 -- Valentine-wound Assessment ELIANA -- ELIANA Margins Unattached edges Unattached edges ELIANA Drainage Amount ELIANA Scant ELIANA Drainage Description ELIANA -- ELIANA Drainage Odor No odor -- -- Dressing/Intervention -- -- Foam (Comment-type) Pressure Ulcer/Pressure Injury 12/19/19 Left Buttocks sm open area, stg 2, pink, akhilvyn Date First Assessed 12/19/19 Site: Buttocks Time First Assessed 15 Days: 6 Present on Hospital Admission: Yes Present on Transfer to Nursing Division: Yes Location Orientation: Left Wound Description (Comments): sm open area, stg 2, pink, allevyn Assessments 12/24/1982212/23/192024 Pressure Ulcer Status Evolving Evolving Description Non-intact, red/pink wound bed (c/w Stage 2, open, no depth, no slough) -- Staging Stage 2 -- Valentine-wound Assessment -- ELIANA Margins Undefined edges -- Drainage Amount Scant ELIANA Drainage Description -- ELIANA Dressing/Intervention -- Foam (Comment-type) Hardin Fall Risk Most Recent Value Auto Low/High - if selected proceed to interventions High risk-visit due to a fall or hx of > 1 fall in past 3 months ............filed at 12/19/2019 1400 History of Falling 0 ............filed at 12/24/20192129 Secondary Diagnosis 15 ............filed at 12/24/20192129 Ambulatory Aids 15 ............filed at 12/24/20192129 Intravenous Therapy/Heparin/Saline Lock 20 ............filed at 12/24/20192129 Gait/Transferring 10 ............filed at 12/24/20192129 Mental Status 0 ............filed at 12/24/20192129 Hardin Fall Risk Score 60 ............filed at 12/24/20192129 Vital Signs 12/23 0700 - 12/24 0659 12/24 0700 - 12/24 1308 Most Recent Temp (??C) 36.5 - 36.9 36.4 - 37 37 (98.6) Pulse 74 - 105 64 - 120 87 Resp 16 - 18 16 - 17 16 SpO2 (%) 98 - 100 94 - 98 96 BP 127/87 - 149/100 138/99 - 159/104 148/105 MAP (mmHg) 98 - 120 113 - 123 117 Default Flowsheet Data (most recent) Endurance Tests No documentation. Default Flowsheet Data (most recent) Balance Tests - 12/22/19 0936 Tinetti Sitting Balance 0 Arises 0 Attempts to Arise 0 Immediate Standing Balance (First 5 Seconds) 0 Standing Balance 0 Nudged 0 NT Eyes Closed 0 NT Turned 360 Degrees: Steadiness 0 Turned 360 Degrees: Continuity of Steps 0 Sitting Down 1 Balance Score 1 Nursing Nutrition Feeding Level of Assistance 12/21 2029 Able to feed self Nursing Mobility Activity 12/24 0500 Sleeping 12/24 0400 Sleeping 12/24 0100 Sleeping 12/24 0000 Resting in bed 12/23 2300 Resting in bed;Sleeping 12/23 2130 Resting in bed 12/23 1554 Resting in bed 12/23 0825 Chair 12/23 0100 Sleeping 12/23 0000 Sleeping 12/22 2000 Resting in bed 12/22 1635 Resting in bed 12/22 1355 Resting in bed 12/22 1200 Chair 12/22 0816 Resting in bed 12/22 0501 Sleeping 12/22 0318 Sleeping 12/22 0200 Resting in bed 12/22 0043 Resting in bed 12/21 2255 Sleeping 12/21 213 Sleeping 12/21 2029 Resting in bed Level of Assistance 12/24 0400 Minimal assist, patient does 75% or more 12/24 0100 Minimal assist, patient does 75% or more 12/24 0000 Minimal assist, patient does 75% or more 12/23 2300 Minimal assist, patient does 75% or more 12/23 2129 Minimal assist, patient does 75% or more 12/23 0825 Minimal assist, patient does 75% or more 12/23 1999 Minimal assist, patient does 75% or more 12/21 2029 Minimal assist, patient does 75% or more Assistive Device 12/21 2029 None Repositioned 12/24 0500 Turns self 12/24 0400 Turns self 12/24 0100 Turns self 12/24 0000 Turns self 12/23 2300 Turns self 12/23 2130 Turns self 12/23 1000 Turns self 12/23 0100 Turns self 12/23 0000 Turns self 12/22 2000 Turns self 12/22 1400 Turns self 12/21 2030 Turns self Positioning Frequency 12/24 0500 Able to turn self 12/24 0400 Able to turn self 12/24 0100 Able to turn self 12/24 0000 Able to turn self 12/23 2300 Able to turn self 12/23 2130 Able to turn self 12/23 1000 Able to turn self 12/23 0100 Able to turn self 12/23 0000 Able to turn self 12/22 2000 Able to turn self 12/22 1400 Able to turn self 12/22 0200 Able to turn self 12/21 2030 Able to turn self Head of Bed Elevated 12/24 0500 Self regulated 12/24 0400 Self regulated 12/24 0100 Self regulated 12/24 0000 Self regulated 12/23 2300 Self regulated 12/23 2130 Self regulated 12/23 1000 Self regulated 12/23 0100 Self regulated 12/23 0000 Self regulated 12/22 2000 Self regulated 12/22 1400 Self regulated 12/22 0200 Self regulated 12/21 2030 Self regulated Range of Motion 12/21 2030 Active;All extremities Type of Device 12/23 2129 Mechanical compression 12/23 1999 Mechanical compression Mechanical Compression Site 12/23 2129 Bilateral 12/23 1999 Bilateral Mechanical Compression Type 12/23 2129 IPC/SCD 12/23 1999 IPC/SCD Mechanical Compression Status 12/23 2129 Off 12/23 1999 Off , Meds and Admin Active Only All Meds/Most Recent Administrations sodium chloride 0.9% flush 0.5-20 mL [[id number]] Ordering Provider: Hola Weinstein MD Status: Verified Ordered On: 12/18/192102 Start: 12/18/192199 Dose (Remaining/Total): 0.5-20 mL (--/--) Route: intra-catheter Frequency: Every 8 hours scheduled Rate/Duration: -- / -- Admin Instructions: Flush volume based on line type and size. Timestamps Action Dose Route Other Information 12/25/19 0534 Given 10 mL intra-catheter Performed by: Jane Hager RN Scanned Package: [id number] sodium chloride 0.9% flush 0.5-20 mL [[id number]] Ordering Provider: Hola Weinstein MD Status: Verified Ordered On: 12/18/192102 Start: 12/18/192099 Dose (Remaining/Total): 0.5-20 mL (--/--) Route: intra-catheter Frequency: As needed Rate/Duration: -- / -- Admin Instructions: Flush volume based on line type and size. Flush before and after each use. (No admins recorded for this medication) metroNIDAZOLE (FLAGYL) 500 mg/100 mL in sodium chloride (premix) 500 mg [[id number]] Ordering Provider: Hola Weinstein MD Status: Completed (Past End Date/Time) Ordered On: 12/18/192158 Starts/Ends: 12/18/19 2230 - 12/19/19 0115 Dose (Remaining/Total): 500 mg (0/1) Route: intravenous Frequency: Once Rate/Duration: 200 mL/hr / 30 Minutes Admin Instructions: Room temperature only Timestamps Action Dose / Rate / Duration Route Other Information 12/19/19 0045 New Bag 500 mg 200 mL/hr 30 Minutes intravenous Performed by: Sada Jorge RN magnesium sulfate 4 g/100 mL in water (premix) 4 g [[id number]] Ordering Provider: Hola Weinstein MD Status: Completed (Past End Date/Time) Ordered On: 12/18/192343 Starts/Ends: 12/19/19 0015 - 12/19/19 0310 Dose (Remaining/Total): 4 g (0/1) Route: intravenous Frequency: Once Rate/Duration: -- / 90 Minutes Timestamps Action Dose / Duration Route Other Information 12/19/19 014 New Bag 4 g 90 Minutes intravenous Performed by: Sada Jorge RN potassium chloride 40 mEq/520 mL in sodium chloride 0.9% (premix) 40 mEq [[id number]] Ordering Provider: Hola Weinstein MD Status: Completed (Past End Date/Time) Ordered On: 12/18/192343 Starts/Ends: 12/19/19 0015 - 12/19/19 0540 Dose (Remaining/Total): 40 mEq (0/1) Route: intravenous Frequency: Once Rate/Duration: 130 mL/hr / 4 Hours Admin Instructions: Total dose = 60 mEq Timestamps Action Dose / Rate / Duration Route Other Information 12/19/19 0140 New Bag 40 mEq 130 mL/hr 4 Hours intravenous Performed by: Sada Jorge RN potassium chloride 20 mEq/260 mL in sodium chloride 0.9% (premix) 20 mEq [[id number]] Ordering Provider: Hola Weinstein MD Status: Completed (Past End Date/Time) Ordered On: 12/18/19 2344 Starts/Ends: 12/19/19 0414 - 12/19/19 1017 Dose (Remaining/Total): 20 mEq (0/1) Route: intravenous Frequency: Once Rate/Duration: -- / 2 Hours Admin Instructions: Total dose = 60 mEq. Start immediately after first potassium chloride infusion ends. Timestamps Action Dose / Duration Route Other Information 12/19/19 0817 New Bag 20 mEq 2 Hours intravenous Performed by: Tanja Garcia RN enoxaparin (LOVENOX) syringe 40 mg [[id number]] Ordering Provider: Gato Hamilton MD Status: Dispensed Ordered On: 12/19/19 06 Start: 12/19/192099 Dose (Remaining/Total): 40 mg (--/--) Route: subcutaneous Frequency: Daily (for enoxaparin) Rate/Duration: -- / -- Timestamps Action Dose Route / Site Other Information 12/24/192126 Given 40 mg subcutaneous Right Lower Abdomen Performed by: Jane Hgaer RN Scanned Package: [id number] sodium chloride 0.9% flush 0.5-20 mL [[id number]] Ordering Provider: Byron Begum MD Status: Verified Ordered On: 12/19/19 150 Start: 12/19/19 1545 Dose (Remaining/Total): 0.5-20 mL (--/--) Route: intra-catheter Frequency: Every 8 hours scheduled Rate/Duration: -- / -- Admin Instructions: Flush volume based on line type and size. Timestamps Action Dose Route Other Information 12/24/19 0635 Given 10 mL intra-catheter Performed by: Jane Hager RN Scanned Package: [id number] sodium chloride 0.9% flush 0.5-20 mL [[id number]] Ordering Provider: Byron Begum MD Status: Verified Ordered On: 12/19/19 1503 Start: 12/19/19 1503 Dose (Remaining/Total): 0.5-20 mL (--/--) Route: intra-catheter Frequency: As needed Rate/Duration: -- / -- Admin Instructions: Flush volume based on line type and size. Flush before and after each use. (No admins recorded for this medication) midazolam (VERSED) preservative free injection [[id number]] Ordering Provider: Katie Gilbert MD Status: Completed (Past End Date/Time) Ordered On: 12/19/191152 Frequency: Code/trauma/sedation medication Timestamps Action Dose Route Other Information 12/19/191151 Given 1 mg intravenous Performed by: Taryn Herrera RN fentaNYL (SUBLIMAZE) preservative free injection [[id number]] Ordering Provider: Katie Gilbert MD Status: Completed (Past End Date/Time) Ordered On: 12/19/191152 Frequency: Code/trauma/sedation medication Timestamps Action Dose Route Other Information 12/19/191152 Given 50 mcg intravenous Performed by: Taryn Herrera RN lidocaine PF (XYLOCAINE) 10 mg/mL (1 %) preservative free injection [[id number]] Ordering Provider: Byron Begum MD Status: Completed (Past End Date/Time) Ordered On: 12/19/19 115 Frequency: Code/trauma/sedation medication Timestamps Action Dose Route Other Information 12/19/191154 Given 10 mL Injection Performed by: Byron Begum MD Documented by: Taryn Herrera RN iothalamate meglumine (CONRAY) 60 % injection [[id number]] Ordering Provider: Byron Begum MD Status: Completed (Past End Date/Time) Ordered On: 12/19/19 120 Frequency: Code/trauma/sedation medication Timestamps Action Dose Route / Site / Linked Line Other Information 12/19/191208 Given 10 mL -- Performed by: Byron Begum MD Documented by: Taryn Herrera RN ondansetron ODT (ZOFRAN-ODT) disintegrating tablet 4 mg [[id number]] Ordering Provider: LORI Wilson Status: Verified Ordered On: 12/20/19544 Start: 12/20/19544 Dose (Remaining/Total): 4 mg (--/--) Route: oral Frequency: Every 4 hours PRN Rate/Duration: -- / -- (No admins recorded for this medication) acetaminophen (TYLENOL) tablet 1,000 mg [[id number]] Ordering Provider: LORI Wilson Status: Verified Ordered On: 12/20/19544 Start: 12/20/19544 Dose (Remaining/Total): 1,000 mg (--/--) Route: oral Frequency: Every 6 hours PRN Rate/Duration: -- / -- (No admins recorded for this medication) potassium chloride (KAYCIEL) 1.3 mEq/mL oral liquid 40 mEq [[id number]] Ordering Provider: LORI Wilson Status: Completed (Past End Date/Time) Ordered On: 12/20/19545 Starts/Ends: 12/20/19629 - 12/20/19606 Dose (Remaining/Total): 40 mEq (0/1) Route: feeding tube Frequency: Once Rate/Duration: -- / -- Admin Instructions: Recommend to dilute each 15 mL with at least 6 ounces of water or juice prior to administration. Timestamps Action Dose Route Other Information 12/20/19606 Given 40 mEq feeding tube Performed by: Valeria Cole RN Scanned Package: 32661-328-87 aspirin enteric coated tablet 325 mg [[id number]] Ordering Provider: LORI Wilson Status: Dispensed Ordered On: 12/21/19753 Start: 12/21/19899 Dose (Remaining/Total): 325 mg (--/--) Route: oral Frequency: Daily Rate/Duration: -- / -- Admin Instructions: Do not crush, chew, cut, dissolve, open or otherwise manipulate tablet/capsule. Timestamps Action Dose Route Other Information 12/25/19953 Given 325 mg oral Performed by: Irma Calles RN Scanned Package: 9912-0038-60 dilTIAZem XR (CARDIZEM CD,DILACOR XR) 24 hour capsule 240 mg [[id number]] Ordering Provider: LORI Wilson Status: Dispensed Ordered On: 12/21/19753 Start: 12/21/19899 Dose (Remaining/Total): 240 mg (--/--) Route: oral Frequency: Daily Rate/Duration: -- / -- Admin Instructions: Do not crush, chew, cut, dissolve, open or otherwise manipulate tablet/capsule. Timestamps Action Dose Route Other Information 12/25/19951 Given 240 mg oral Performed by: Irma Calles RN Scanned Package: 19766-060-22 folic acid (FOLVITE) tablet 1 mg [[id number]] Ordering Provider: LORI Wilson Status: Dispensed Ordered On: 12/21/19753 Start: 12/21/19899 Dose (Remaining/Total): 1 mg (--/--) Route: oral Frequency: Daily Rate/Duration: -- / -- Timestamps Action Dose Route Other Information 12/25/19952 Given 1 mg oral Performed by: Irma Calles RN Scanned Package: 06562-789-74 magnesium oxide (MAG-OX) tablet 400 mg [[id number]] Ordering Provider: LORI Wilson Status: Dispensed Ordered On: 12/21/19753 Start: 12/21/19899 Dose (Remaining/Total): 400 mg (--/--) Route: oral Frequency: Daily Rate/Duration: -- / -- Admin Instructions: 1 tablet = Magnesium oxide 400 mg = 241.3 mg elemental magnesium Timestamps Action Dose Route Other Information 12/25/19951 Given 400 mg oral Performed by: Irma Calles RN Scanned Package: [id number] metoprolol tartrate (LOPRESSOR) immediate release tablet 25 mg [[id number]] Ordering Provider: LORI Wilson Status: Dispensed Ordered On: 12/21/19753 Start: 12/21/19899 Dose (Remaining/Total): 25 mg (--/--) Route: oral Frequency: 2 times daily Rate/Duration: -- / -- Timestamps Action Dose Route Other Information 12/25/19952 Given 25 mg oral Performed by: Irma Calles RN Scanned Package: 90287-589-[address] (PROTONIX) extended release tablet 40 mg [[id number]] Ordering Provider: LORI Wilson Status: Dispensed Ordered On: 12/21/19753 Start: 12/21/19899 Dose (Remaining/Total): 40 mg (--/--) Route: oral Frequency: Daily Rate/Duration: -- / -- Admin Instructions: Do not crush, chew, cut, dissolve, open or otherwise manipulate tablet/capsule. Timestamps Action Dose Route Other Information 12/25/19952 Given 40 mg oral Performed by: Irma Calles RN Scanned Package: 34637-080-60 polyethylene glycol (MIRALAX) packet 17 g [[id number]] Ordering Provider: LORI Wilson Status: Dispensed Ordered On: 12/21/19753 Start: 12/21/19899 Dose (Remaining/Total): 17 g (--/--) Route: oral Frequency: Daily Rate/Duration: -- / -- (No admins recorded for this medication) QUEtiapine (SEROquel) tablet 12.5 mg [[id number]] Ordering Provider: LORI Wilson Status: Dispensed Ordered On: 12/21/19753 Start: 12/21/192099 Dose (Remaining/Total): 12.5 mg (--/--) Route: oral Frequency: Nightly Rate/Duration: -- / -- Timestamps Action Dose Route Other Information 12/24/192125 Given 12.5 mg oral Performed by: Jane Hager RN Scanned Package: 31297-852-13 thiamine (VITAMIN B1) tablet 100 mg [[id number]] Ordering Provider: LORI Wilson Status: Dispensed Ordered On: 12/21/19753 Start: 12/21/19899 Dose (Remaining/Total): 100 mg (--/--) Route: oral Frequency: Daily Rate/Duration: -- / -- Timestamps Action Dose Route Other Information 12/25/19952 Given 100 mg oral Performed by: Irma Calles RN Scanned Package: [id number] meropenem (MERREM) 1,000 mg/110 mL in sodium chloride 0.9% (premix) 1,000 mg [[id number]] Ordering Provider: LORI Wilson Status: Dispensed Ordered On: 12/21/19 1039 Start: 12/21/19 1600 Dose (Remaining/Total): 1,000 mg (--/--) Route: intravenous Frequency: Every 8 hours scheduled Rate/Duration: 220 mL/hr / 30 Minutes Line Med Link Info Comment Midline Catheter 12/05/19 0000 Right Upper arm 12/21/19 1618 by Sharonda Guadarrama RN -- Timestamps Action Dose / Rate / Duration Route Other Information 12/25/19 0952 New Bag 1,000 mg 220 mL/hr 30 Minutes intravenous Performed by: Irma Calles RN levalbuterol (XOPENEX) 1.25 mg/3 mL nebulizer solution 1.25 mg [[id number]] Ordering Provider: LORI Wilson Status: Dispensed Ordered On: 12/21/19 1113 Start: 12/21/19 1115 Dose (Remaining/Total): 1.25 mg (--/--) Route: nebulization Frequency: Every 6 hours PRN (respiratory care faculty) Rate/Duration: -- / -- (No admins recorded for this medication) , Wound Info Only Patient Lines/Drains/Airways Status Active Wound / Pressure ulcer / Johnson / Negative Pressure Wound Wound 12/19/19 Abscess Lower;Right Abdomen swollen, red, draining serosang, MD packed and dressed this AM Date First Assessed 12/19/19 Site: Abdomen Time First Assessed 914 Days: 6 Present on Hospital Admission: Yes Wound Type: Abscess Location Orientation: Lower;Right Wound Description (Comments): swollen, red, draining serosang, MDpacked and dressed this AM Pressure Ulcer/Pressure Injury 12/19/19 Right Buttocks stg 2 blanca size, pink, single thickness, allevyn Date First Assessed 12/19/19 Site: Buttocks Time First Assessed 914 Days: 6 Present on Hospital Admission: Yes Present on Transfer to Nursing Division: Yes Location Orientation: Right Wound Description (Comments): stg 2 blanca size, pink, single thickness, allevyn Assessments 12/24/19212912/24/1982212/23/192024 Pressure Ulcer Status Evolving Evolving Evolving Description Non-intact, red/pink wound bed (c/w Stage 2, open, no depth, no slough) Non-intact, red/pink wound bed (c/w Stage 2, open, no depth, no slough) -- Staging Stage 2 Stage 2 -- Valentine-wound Assessment ELIANA -- ELIANA Margins Unattached edges Unattached edges ELIANA Drainage Amount ELIANA Scant ELIANA Drainage Description ELIANA -- ELIANA Drainage Odor No odor -- -- Dressing/Intervention -- -- Foam (Comment-type) Pressure Ulcer/Pressure Injury 12/19/19 Left Buttocks sm open area, stg 2, pink, allevyn Date First Assessed 12/19/19 Site: Buttocks Time First Assessed 15 Days: 6 Present on Hospital Admission: Yes Present on Transfer to Nursing Division: Yes Location Orientation: Left Wound Description (Comments): sm open area, stg 2, pink, allevyn Assessments 12/24/1982212/23/192024 Pressure Ulcer Status Evolving Evolving Description Non-intact, red/pink wound bed (c/w Stage 2, open, no depth, no slough) -- Staging Stage 2 -- Valentine-wound Assessment -- ELIANA Margins Undefined edges -- Drainage Amount Scant ELIANA Drainage Description -- ELIANA Dressing/Intervention -- Foam (Comment-type) , Vitals Info Only Vital Signs 12/23 0700 - 12/24 0659 12/24 0700 - 12/24 1308 Most Recent Temp (??C) 36.5 - 36.9 36.4 - 37 37 (98.6) Pulse 74 - 105 64 - 120 87 Resp 16 - 18 16 - 17 16 SpO2 (%) 98 - 100 94 - 98 96 BP 127/87 - 149/100 138/99 - 159/104 148/105 MAP (mmHg) 98 - 120 113 - 123 117 , Oxygen Info Only Default Flowsheet Data (most recent) Endurance Tests No documentation. Default Flowsheet Data (last 48 hours) Oxygen Row Name 12/25/19 1230 12/25/19 1130 12/25/19 1100 12/25/19 1030 12/25/19 1015 Oxygen Therapy/Pulse Ox O2 Therapy None (Room air) None (Room air) None (Room air) None (Room air) None (Room air) SpO2 96 % 97 % 96 % 96 % 94 % Row Name 12/25/19 1000 12/25/19 0940 12/25/19 0740 12/25/19 0230 12/24/19 2345 Oxygen Therapy/Pulse Ox O2 Therapy None (Room air) None (Room air) None (Room air) None (Room air) None (Room air) SpO2 98 % 96 % 98 % 98 % 100 % Patient Activity -- -- At rest -- -- Row Name 12/24/19 1936 12/24/19 1602 12/24/19 1510 12/24/19 1457 12/24/19 1128 Oxygen Therapy/Pulse Ox O2 Therapy None (Room air) None (Room air) None (Room air) None (Room air) None (Room air) SpO2 100 % 100 % 100 % -- 99 % Row Name 12/24/19 1025 12/24/19 1001 12/24/19 0759 12/24/19 0300 12/24/19 0000 Oxygen Therapy/Pulse Ox O2 Therapy None (Room air) None (Room air) None (Room air) None (Room air) None (Room air) SpO2 99 % 99 % 98 % 98 % 97 % Row Name 12/23/19 1954 12/23/19 1600 Oxygen Therapy/Pulse Ox O2 Therapy None (Room air) None (Room air) SpO2 99 % 100 % * Plan of Care - Irma Calles RN - 12/25/2019 10:00 AM CDT Goals: Clinical Goals for the Shift: rest, monitor vitals and I&Os Summary: Problem: Lack of Knowledge: Goal: Ability to state ways to decrease the risk of falls will improve Outcome: Progressing Problem: Safety: Goal: Will remain free from falls Outcome: Progressing Goal: Will remain free from injury from falls Outcome: Progressing Goal: Will remain free from falls and injury in home environment Outcome: Progressing Problem: Lack of Knowledge: Goal: Ability to develop a pain control plan will improve Outcome: Progressing Goal: Ability to identify pain intensity on a pain scale and rate it consistently will improve Outcome: Progressing Goal: Ability to notify healthcare provider of pain before it becomes unmanageable or unbearable will improve Outcome: Progressing Problem: Medication: Goal: Satisfaction with pain management regimen will improve Outcome: Progressing Problem: Sensory: Goal: Ability to identify factors that increase the pain will improve Outcome: Progressing Goal: Pain level will decrease Outcome: Progressing Problem: Activity: Goal: Risk for activity intolerance will decrease Outcome: Progressing Problem: Lack of Knowledge: Goal: Knowledge of diagnostic tests will improve Outcome: Progressing Goal: Knowledge of disease or condition will improve Outcome: Progressing Goal: Knowledge of safety precautions will improve Outcome: Progressing Goal: Knowledge of the prescribed therapeutic regimen will improve Outcome: Progressing Problem: Health Behavior: Goal: Ability to state signs and symptoms to report to health care provider will improve Outcome: Progressing Problem: Physical Regulation: Goal: Ability to maintain clinical measurements within normal limits will improve Outcome: Progressing Problem: Infection Risk: Goal: Will remain free from infection Outcome: Progressing Problem: Safety: Goal: Ability to remain free from injury will improve Outcome: Progressing Goal: Will remain free from falls Outcome: Progressing Problem: Self-Care: Goal: Ability to participate in self-care as condition permits will improve Outcome: Progressing Problem: Sensory: Goal: Pain level will decrease Outcome: Progressing Goal: Ability to develop a pain control plan will improve Outcome: Progressing Problem: Skin Integrity: Goal: Risk for impaired skin integrity will decrease Outcome: Progressing Problem: Tissue Perfusion: Goal: Risk factors for ineffective tissue perfusion will decrease Outcome: Progressing Problem: Activity: Goal: Mobility will improve Outcome: Progressing Problem: Lack of Knowledge: Goal: Understanding of ways to prevent future skin breakdown will improve Outcome: Progressing Problem: Skin Integrity: Goal: Risk for impaired skin integrity will decrease Outcome: Progressing Goal: Ability to demonstrate warm and dry skin will improve Outcome: Progressing Goal: Circulation will improve to fullest extent possible Outcome: Progressing Problem: Health Behavior: Goal: Understanding of discharge needs will improve Outcome: Progressing * Post-Procedure Note - Byron Begum MD - 12/25/2019 8:55 AM CDT Radiology Brief Post Procedure Note Attending: Ofelia Organizational Development Director: Kel Sedation/Anesthesia: Local Pre-Op/Pre-Procedure Diagnosis: Abdominal wall fluid collection Post-Op/Post-Procedure Diagnosis: Same Procedure Performed: Drain exchange Procedure Findings: Successful. Complications: None Estimated Blood Loss: < 30 ml Specimens: None Condition: Stable Full report to follow. * Plan of Care - Madan, Jane Birch RN - 12/24/2019 10:57 PM CDT Goals: Clinical Goals for the Shift: rest, monitor VSS, I/O Summary: Problem: Lack of Knowledge: Goal: Ability to state ways to decrease the risk of falls will improve Outcome: Progressing Problem: Safety: Goal: Will remain free from falls Outcome: Progressing Goal: Will remain free from injury from falls Outcome: Progressing Goal: Will remain free from falls and injury in home environment Outcome: Progressing Problem: Lack of Knowledge: Goal: Ability to develop a pain control plan will improve Outcome: Progressing Goal: Ability to identify pain intensity on a pain scale and rate it consistently will improve Outcome: Progressing Goal: Ability to notify healthcare provider of pain before it becomes unmanageable or unbearable will improve Outcome: Progressing Problem: Medication: Goal: Satisfaction with pain management regimen will improve Outcome: Progressing Problem: Sensory: Goal: Ability to identify factors that increase the pain will improve Outcome: Progressing Goal: Pain level will decrease Outcome: Progressing Problem: Activity: Goal: Risk for activity intolerance will decrease Outcome: Progressing Problem: Lack of Knowledge: Goal: Knowledge of diagnostic tests will improve Outcome: Progressing Goal: Knowledge of disease or condition will improve Outcome: Progressing Goal: Knowledge of safety precautions will improve Outcome: Progressing Goal: Knowledge of the prescribed therapeutic regimen will improve Outcome: Progressing Problem: Health Behavior: Goal: Ability to state signs and symptoms to report to health care provider will improve Outcome: Progressing Problem: Physical Regulation: Goal: Ability to maintain clinical measurements within normal limits will improve Outcome: Progressing Problem: Infection Risk: Goal: Will remain free from infection Outcome: Progressing Problem: Safety: Goal: Ability to remain free from injury will improve Outcome: Progressing Goal: Will remain free from falls Outcome: Progressing Problem: Self-Care: Goal: Ability to participate in self-care as condition permits will improve Outcome: Progressing Problem: Sensory: Goal: Pain level will decrease Outcome: Progressing Goal: Ability to develop a pain control plan will improve Outcome: Progressing Problem: Skin Integrity: Goal: Risk for impaired skin integrity will decrease Outcome: Progressing Problem: Tissue Perfusion: Goal: Risk factors for ineffective tissue perfusion will decrease Outcome: Progressing Problem: Activity: Goal: Mobility will improve Outcome: Progressing Problem: Lack of Knowledge: Goal: Understanding of ways to prevent future skin breakdown will improve Outcome: Progressing Problem: Skin Integrity: Goal: Risk for impaired skin integrity will decrease Outcome: Progressing Goal: Ability to demonstrate warm and dry skin will improve Outcome: Progressing Goal: Circulation will improve to fullest extent possible Outcome: Progressing Problem: Health Behavior: Goal: Understanding of discharge needs will improve Outcome: Progressing * Pre-Procedure Note - Byron Begum MD - 12/24/2019 5:46 PM CDT Radiology Procedure Plan Indication: GB fossa abscess tracking to abdominal wall. Planned Procedure: Drain check, possible exchange, possible removal. * Plan of Care - Bri Lauren - 12/24/2019 3:53 PM CDT Problem: Mobility Goal: STG - Patient will ambulate Description: 100 feet, with ww, sup assist Outcome: Progressing Problem: Transfers Goal: STG - Patient will perform bed mobility Description: supervision Outcome: Completed Goal: STG - Patient will transfer sit to and from stand Description: supervision with WW Outcome: Progressing Cosigned by Mily Light DPT at 12/24/2019 4:11 PM CDT * [facility] Note - Mariaa Pereyra LCSW - 12/24/2019 2:37 PM CDT Patient Information: OT Eval and Treat Last 72 Hours OT Evaluation Row Name 12/22/19935 Chart Reviewed Yes -EW Session Type Evaluation -EW OT Received On 12/22/19 -EW Safe Environment Arm Band Checked;Call Light within Reach;Notified RN;Patient found in Supine;Overbed Table within Reach;Bed in Lowest Position with Wheels locked;Bed rails up per protocol;Bed Alarm placed and activated Pt returned to supine, needs within reach -EW Subjective Agreeable to Therapy -EW Additional Pertinent History HPI: 69 y.o. male with cc abdominal wall abscess; s/p drain placement 9 RUQ; PMH: acute cholecystitis c/b recurrent gallbladder abscesses requiring percutaneous drainage, alcohol abuse, a-fib, hld, htn, current smoker -EW Family/Caregiver Present No -EW Occupational Therapy-Patient Goal Pt agreeable to goals presented by OT student -EW Precautions Fall risk -EW Type of Home House -EW Home Layout Multi-level Pt reports it is a split-level home -EW # of Steps-Railed 7 Pt reports 7 steps to bedroom, HR on R -EW Home Access Stairs to enter with rails -EW Entrance Stairs-Rails Right -EW Entrance Stairs-Number of Steps 1 -EW Bathroom Shower/Tub Walk-in shower with threshold -EW Bathroom Toilet Standard -EW Bathroom Equipment Grab bars in shower/tub;Built-in shower seat -EW Bathroom Accessibility Accessible via walker -EW Home Mobility Equipment Wheeled walker -EW Additional Comments Pt reports use of WW at baseline -EW Level of [place] Independent with ADLs;Independent functional transfers;Independent with ambulation;Independent with homemaking with ambulation Mod I with WW -EW Lives With Spouse -EW Receives Help From Spouse/Significant other FT assist available -EW Driving No -EW Mode of Transportation Car;Driven by others Pt reports spouse drives -EW ADL Assistance Independent -EW Instrumental ADL (IADL) Assistance Independent -EW Medical Management -- Pt reports requires assist from with pill box -EW 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 -EW Leisure Hobbies-yes (Comment) Pt reports he enjoys cooking -EW Fall within the last 6 months comment Pt reports 1 fall d/t tripping over a visitor during a democrat at home -EW Prior Function Comments Pt reports use of WW and grab bars at baseline, assist required for medication management, Mod I with all other ADLs/IADLs -EW ADLS (WDL) X -EW Grooming: Where assessed Standing at sink -EW Grooming: Level of assistance Minimum Assist ADL: Mod I Bal: Min A -EW Grooming: Assistance with Safety Min A for safety d/t decreased balance -EW LE Dressing: Where assessed Edge of bed -EW LE Dressing: Level of assistance Minimum Assist ADL: Mod I Bal: min -EW LE Dressing: Assistance with Safety;Increased time to complete;Requires assistive device for steadying Min A for balance in sitting/standing -EW Toileting: Where assessed Toilet -EW Toileting: Level of assistance Minimum Assist -EW Toileting: Assistance with Increased time to complete Min A for balance -EW Toilet Transfer From Bed -EW Toilet Transfer Type To and from -EW Toilet Transfer to Standard toilet -EW Toilet Transfer Technique Ambulating -EW Toilet Transfer: Equipment Wheeled walker -EW Toilet Transfers Minimal assistance -EW Toilet Transfers Comments Min A required for balance -EW Pain Assessment No/denies pain -EW Endurance Tolerates 10 - 20 min activity with multiple rests -EW Activity Tolerance Comments Timmy: pretty hard -EW Current Vision Does not wear glasses -EW Arousal/Alertness Alert;Appropriate responses to stimuli -EW Attention Span Attends with cues to redirect -EW Memory Decreased short term memory Recalled 3/5 components of name/address in SBT -EW Current communication Appears Intact -EW Orientation Oriented X4 (person, place, time, situation) -EW Following Commands Follows one step commands without difficulty -EW Safety Judgment Decreased awareness of need for safety -EW Awareness of Errors Assistance required to identify errors made -EW Insight Decreased awareness of deficits -EW Problem Solving Assistance required to identify errors made -EW Compliance/Behavior Easy to engage -EW Perseveration Not present -EW Light Touch WFL BUE -EW Numbness/Tingling No BUE -EW Serial Opposition -- Increased time required for accuracy -EW Hand Preference Left -EW Balance Yes -EW Static Sitting-Balance Support Bilateral upper extremity supported;Feet supported -EW Static Sitting-Sitting Surface Bed -EW Static Sitting-Level of Assistance Distant supervision -EW Static Sitting-Comment/# of Minutes For safety -EW Dynamic Sitting-Balance Support Unilateral upper extremity supported;Feet supported -EW Dynamic Sitting-Balance Lateral lean;Reaching for objects -EW Dynamic Sitting-Sitting Surface Bed -EW Dynamic Sitting-Level of Assistance Minimum assistance -EW Dynamic Sitting-Comments Min A for balance d/t lateral lean to R -EW Static Standing-Balance Support Bilateral upper extremity supported WW -EW Static Standing-Standing Surface Floor -EW Static Standing-Level of Assistance Contact guard -EW Static Standing-Comment/# of Minutes For safety/balance -EW Dynamic Standing-Balance Support Bilateral upper extremity supported;Unilateral upper extremity supported WW -EW Dynamic Standing-Balance Lateral lean;Reaching for objects -EW Dynamic Standing-Standing Surface Floor -EW Dynamic Standing-Level of Assistance Minimum assistance -EW Dynamic Standing-Comments Min A required d/t decreased balance -EW Bed Mobility Yes -EW Bed Mobility From 1 Supine -EW Bed Mobility Type 1 To -EW Bed Mobility to 1 Edge of bed -EW Level of Assistance 1 Minimum Assist -EW Bed Mobility Comments 1 Min A for trunk elevation -EW Bed Mobility From 2 Edge of bed -EW Bed Mobility Type 2 To -EW Bed Mobility to 2 Supine -EW Level of Assistance 2 Standby Assist -EW Bed Mobility Comments 2 For safety -EW Transfer Yes Gait belt not donned d/t drain placement -EW Transfer From 1 Sit -EW Transfer Type 1 To and from -EW Transfer to 1 Stand -EW Technique 1 Sit to stand;Stand to sit -EW Transfer Device 1 Wheeled walker -EW Transfer Level of Assistance 1 Minimum Assist -EW Trials/Comments 1 Min A for force production, VCs for safe hand placement with WW -EW Trials/Comments 2 Pt required Min A during fxl mobility with WW for safety/balance, VCs for safe use of WW -EW RUE Assessment WFL MMT NT -EW LUE Assessment WFL MMT NT -EW Comments Pt limited by decreased balance and safety awareness this date. Pt required Min A for safety/balance during ADLs and fxl mobility with WW. -EW Problem List Decreased endurance;Decreased safe judgment during ADL;Decreased balance;Decreased functional mobility;Decreased ADL independence;Decreased IADL independence -EW Barriers to Discharge Current Mobility Status;Home environment challenged;Decreased safety awareness -EW Plan Plan of care initiated;If this is the last note, consider this the discharge summary -EW OT Recommendation Group Home Facility -EW OT Recommendation/Plan Comments If pt declines placement, home with 24 hr supervision and HHOT for safety evaluation -EW OT Frequency 3-5x/wk -EW Treatment/Interventions ADL/IADL retraining;Balance Training;Cognitive retraining;Endurance training;Functional activity;Functional mobility training;Functional transfer training -EW OT - Next Appointment 12/24/19 -EW OT Evaluation Complete Yes -EW User Perdomo (r) = Recorded By, (t) = Taken By, (c) = Cosigned By Initials Name Effective Dates EW Tarynollie Lunderheide 10/03/19 - OT Treatment Row Name 12/24/19 1001 Session Type Treatment -AL OT Received On 12/24/19 -AL Safe Environment Arm Band Checked;Bed Alarm placed and activated;Call Light within Reach;Notified RN;Session Completed Bedside;Patient found sitting in Chair;Overbed Table within Reach Patient left sitting in chair -AL Subjective Agreeable to Therapy -AL Family/Caregiver Present No -AL Precautions Fall risk -AL Precaution Handout Issued No -AL Pain Assessment No/denies pain -AL Balance Yes -AL Static Sitting-Balance Support Bilateral upper extremity supported;Feet supported -AL Static Sitting-Sitting Surface Chair -AL Static Sitting-Level of Assistance Distant supervision safety -AL Dynamic Sitting-Balance Support Unilateral upper extremity supported;Feet supported alternating unilateral reaching -AL Dynamic Sitting-Balance Forward lean;Reaching for objects -AL Dynamic Sitting-Sitting Surface Chair -AL Dynamic Sitting-Level of Assistance Distant supervision safety -AL Static Standing-Balance Support Bilateral upper extremity supported wheeled walker -AL Static Standing-Standing Surface Floor -AL Static Standing-Level of Assistance Minimum assistance steadying assistance -AL Dynamic Standing-Balance Support Unilateral upper extremity supported alternating unilateral reaching -AL Dynamic Standing-Balance Forward lean;Reaching for objects -AL Dynamic Standing-Standing Surface Floor -AL Dynamic Standing-Level of Assistance Minimum assistance steadying assistance -AL ADLS (WDL) X -AL Grooming: Where assessed -- standing in front of chair -AL Grooming: Level of assistance Minimum Assist Supervision of task, Min A balance -AL LE Dressing: Where assessed Sitting;Chair -AL LE Dressing: Level of assistance Minimum Assist Supervision for task, Min A balance -AL Toileting: Where assessed Toilet -AL Toileting: Level of assistance Moderate Assist Mod A task, Min A balance -AL Toileting: Assistance with Clothing management down;Clothing management up;Posterior -AL Bed Mobility No Patient found sitting in chair -AL Transfer Yes gait belt used for oob mobility -AL Transfer From 1 Sit;Chair with arms -AL Transfer Type 1 To and from -AL Transfer to 1 Stand -AL Technique 1 Sit to stand;Stand to sit -AL Transfer Device 1 Wheeled walker -AL Transfer Level of Assistance 1 Minimum Assist force production, control of descent -AL Trials/Comments 1 x 2 trials; Min verbal cues for wheeled walker use -AL Toilet Transfer From -- standing -AL Toilet Transfer Type To and from -AL Toilet Transfer to Standard toilet -AL Toilet Transfer Technique -- stand to sit, sit to stand -AL Toilet Transfer: Equipment Wheeled walker -AL Toilet Transfers Minimal assistance control of descent, force production -AL Toilet Transfers Comments Min verabl cues for wheeled walker use -AL Arousal/Alertness Alert;Appropriate responses to stimuli -AL Attention Span Attends with cues to redirect -AL Orientation Oriented X4 (person, place, time, situation) -AL Following Commands Follows one step commands without difficulty -AL Safety Judgment Decreased awareness of need for safety -AL Awareness of Errors Assistance required to identify errors made;Assistance required to correct errors made -AL Insight Fully aware of deficits -AL Problem Solving Assistance required to identify errors made;Assistance required to generate solutions -AL Compliance/Behavior Easy to engage -AL Comments Patient ambulated to bathroom with wheeled walker and occasional Min A for steadying assistance; patient experienced 1 LOB during bathrom mobiltiy and required Min A for steadying assistance; Patient was returned to chair; Patient completed grooming task standing in front of chair 2/2 decreased safety during room mobility -AL Problem List Decreased endurance;Decreased balance;Decreased ADL independence;Decreased IADL independence;Decreased functional mobility -AL Barriers to Discharge Current Mobility Status -AL Barrier Comments Fall Risk -AL Plan Continue with current plan;If this is the last note, consider this the discharge summary -AL OT Recommendation Group Home Facility -AL OT Frequency 3-5x/wk -AL Treatment/Interventions ADL/IADL retraining;Balance Training;Functional transfer training;Functional activity;Functional mobility training;Endurance training;Therapeutic activity;Strengthening;Therapeutic exercise;Transfer training -AL OT - Next Appointment 12/25/19 -AL User Perdomo (r) = Recorded By, (t) = Taken By, (c) = Cosigned By Initials Name Effective Dates AL Jody Corrales 10/03/19 - OT Notes (Notes from 12/22/19 through 12/24/19) 12/22/2019 11:44 AM Progress Notes signed by Miladys Victor OT , OT Eval and Treat Last Documented OT ASSESSMENT FLOWSHEET LAST DOCUMENTED (most recent) OT Evaluation - 12/24/19 1030 Pain Assessment Pain Assessment No/denies pain OT TREATMENT FLOWSHEET LAST DOCUMENTED (most recent) OT Treatment - 12/24/19 1030 Pain Assessment Pain Assessment No/denies pain OT Notes (Notes from 12/22/19 through 12/24/19) 12/22/2019 11:44 AM Progress Notes signed by Miladys Victor, OT , PT Eval and Treat Last 72 Hours PT Evaluation Row Name 12/21/19 0753 Session Type Evaluation -FJ Safe Environment Arm Band Checked;Bed Alarm placed and activated;Call Light within Reach;Session Completed Bedside;Patient found in Supine pt left resting in bed -FJ Subjective Agreeable to Therapy -FJ Physical Therapy-Patient Goal no goal provided -FJ Precautions Fall risk -FJ Type of Home House -FJ Home Layout Multi-level -FJ # of Steps-Railed 7 -FJ Home Access Level entry -FJ Home Mobility Equipment Wheeled walker -FJ Level of [place] Independent with ambulation mod I -FJ Lives With Spouse -FJ Receives Help From Spouse/Significant other as needed -FJ Fall within the last 6 months comment 2 recent falls. pt reprots tripping over a visitor during a home democrat. -FJ Prior Function Comments Pt reports use of walker for home ambulation, along with grab bars as needed. -FJ Activity Tolerance Comments RPE: somewhat hard -FJ Pain Assessment No/denies pain -FJ Arousal/Alertness Alert -FJ Orientation Oriented X4 (person, place, time, situation) -FJ Following Commands Follows multistep commands with repetition -FJ Compliance/Behavior Easy to engage -FJ Light Touch WFL BLE distal to knees -FJ Numbness/Tingling No -FJ Sensation Comments (-) open wounds/edema BLE distal to knees -FJ Balance Yes -FJ Static Sitting-Balance Support Feet supported;Bilateral upper extremity supported -FJ Static Sitting-Sitting Surface Bed -FJ Static Sitting-Level of Assistance Distant supervision -FJ Static Standing-Balance Support Bilateral upper extremity supported -FJ Static Standing-Standing Surface Floor -FJ Static Standing-Level of Assistance Contact guard -FJ Static Standing-Comment/# of Minutes with WW, therapist assist provided to ensure safe/stable standing balance -FJ Bed Mobility From 1 Supine -FJ Bed Mobility Type 1 To -FJ Bed Mobility to 1 Edge of bed -FJ Level of Assistance 1 Minimum Assist -FJ Bed Mobility Comments 1 HOB flat, therapist assist to elevate pts trunk, no assist required to return to supine -FJ Transfer From 1 Bed -FJ Technique 1 Sit to stand;Stand to sit -FJ Transfer Device 1 Wheeled walker -FJ Transfer Level of Assistance 1 Minimum Assist -FJ Trials/Comments 1 therapist assist requried for force production, cues provided for safe hand placement -FJ Distance (ft) 1 20 -FJ Surface 1 Level tile -FJ Device 1 Wheeled walker -FJ Assistance 1 Minimum Assist -FJ Gait: Requires assist with 1 Maintaining balance -FJ Gait: Requires verbal cues to 1 Use assistive device safely;Prevent bumping into environmental barriers (hernandez/furniture);Utilize appropriate gait sequencing -FJ Quality of Gait 1 wide CHERRY, mild path deviations, lateral sway -FJ Ambulation Comments 1 pt declined further ambulation -FJ RLE Assessment WFL -FJ LLE Assessment WFL -FJ Equipment Use Comments gait belt donned -FJ Other PT Comments (S) Of note pt reports his would like for him to DC to a facility for rehabilitation. Pt states that he believes she is most concerned with his ability to negotiate the stairs within their home. At this time pt is an appropriate candidate for SNF. -FJ How much difficulty does the patient have: Turning over in bed 4 -FJ How much difficulty does the patient currently have: Sitting down and standing up from a chair witharms? 3 -FJ How much difficulty does the patient have: Moving from lying on back to sitting on the side of the bed? 3 -FJ How much difficulty does the patient have: Moving to and from a bed to a chair including wheelchair? 3 -FJ How much help does the patient currently need: Walk in hospital room? 3 -FJ How much help from another person does the patient currently need: Climbing 3-5 steps with a railing? 2 -FJ Total 6 Click Score (range 6-24) 18 -FJ Score Interpretation 41.05 -FJ Problem List Gait deviations;Decreased strength;Impaired balance;Decreased mobility;Decreased ADLs -FJ Problem List Comments Pt is a 69 y.o. male with cc abdominal wall abscess; s/p drain placement 12/18RUQ presenting with deficits in bed mobility, transfers, ambulation, and stair climbing due to the primary impairments noted above. These deficits will prevent full participation in home and community mobility. -FJ Barriers to Discharge Current Mobility Status;Home environment challenged -FJ Plan Plan of care initiated;If this is the last note, consider this the discharge summary -FJ PT Recommendation/Plan Group Home Facility -FJ PT Recommendation/Plan Comments pending gait/stair assessment -FJ PT Frequency 3-5x/wk - Treatment/Interventions Balance Training;Bed mobility;Gait training;Strengthening;Therapeutic activity;Therapeutic exercise;Transfer training;Stair training - PT Evaluation Complete Yes - User Perdomo (r) = Recorded By, (t) = Taken By, (c) = Cosigned By Initials Name Effective Dates JOE Coley, PT 05/08/19 - PT TREATMENT (last 168 hours) PT Treatment No documentation. PT Notes (Notes from 12/22/19 through 12/24/19) No notes of this type exist for this encounter. , PT Eval and Treat Last Documented OT ASSESSMENT FLOWSHEET LAST DOCUMENTED (most recent) PT Evaluation - 12/24/19 1030 Pain Assessment Pain Assessment No/denies pain PT TREATMENT (most recent) PT Treatment - 12/24/19 1030 Pain Assessment Pain Assessment No/denies pain PT Notes (Notes from 12/22/19 through 12/24/19) No notes of this type exist for this encounter. * [facility] Note - Mariaa Pereyra LCSW - 12/24/2019 2:37 PM CDT Images from the original note were not included. Patient Information: Comprehensive Nursing Documentation Attending Provider: Eugene Oates MD Allergies: Penicillins Isolation: Contact Infection: MDR gram neg/ESBL (12/21/19) Code Status: FULL Ht: 180.3 cm (5' 11 ) Wt: 76.8 kg (169 lb 4.8 oz) Admission Cmt: None Principal Problem: Cholecystitis [K81.9] Intake/Output 12/21/19 07 - 12/22/19 0659 12/22/19 07 - 12/23/19 0659 12/23/19 07 - 12/24/19 0659 12/24/19 07 - 12/25/19 0659 Total Total 9235-1185 4455-9118 7849-9920 Total 7001-7212 5733-3096 4444-5734 Total Intake (ml) 0 30 -- 0 0 0 -- -- -- -- Output (ml) 10 755 490 -10 0 480 180 -- -- 180 Net (ml) -10 -725 -490 10 0 -480 -180 -- -- -180 Last Weight 75.8 kg (167 lb) 76.5 kg (168 lb 9.6 oz) -- -- 76.8 kg (169 lb 4.8 oz) -- -- -- -- -- Patient Lines/Drains/Airways Status Active Airway / Central venous catheter / Drain / Epidural cathether / Intraosseous line / Peripherally inserted central catheter / Peripheral intravenous line / Arterial line Name: Placement date: Placement time: Site: Days: Closed/Suction/Open Drain 1 Right RUQ Bulb 10 Fr. 12/19/19 1202 RUQ 5 Midline Catheter 12/05/19 0000 Right Upper arm 12/05/19 0000 -- 19 Patient Lines/Drains/Airways Status Active Wound / Pressure ulcer / Johnson / Negative Pressure Wound Wound 12/19/19 Abscess Lower;Right Abdomen swollen, red, draining serosang, MD packed and dressed this AM Date First Assessed 12/19/19 Site: Abdomen Time First Assessed 914 Days: 5 Present on Hospital Admission: Yes Wound Type: Abscess Location Orientation: Lower;Right Wound Description (Comments): swollen, red, draining serosang, MDpacked and dressed this AM Assessments 12/22/192029 Wound Status Evolving Site Assessment ELIANA Valentine-wound Assessment ELIANA Margins ELIANA Closure Unable to assess Drainage Amount Scant Drainage Description ELIANA Drainage Odor No odor Dressing Status Clean/Dry/Intact Dressing Gauze Pressure Ulcer/Pressure Injury 12/19/19 Right Buttocks stg 2 blanca size, pink, single thickness, allevyn Date First Assessed 12/19/19 Site: Buttocks Time First Assessed 914 Days: 5 Present on Hospital Admission: Yes Present on Transfer to Nursing Division: Yes Location Orientation: Right Wound Description (Comments): stg 2 blanca size, pink, single thickness, allevyn Assessments 12/24/1982212/23/19202412/23/19 0812/22/192029 Pressure Ulcer Status Evolving Evolving Evolving Evolving Description Non-intact, red/pink wound bed (c/w Stage 2, open, no depth, no slough) -- Non-intact, red/pink wound bed (c/w Stage 2, open, no depth, no slough) Non-intact, red/pink wound bed (c/w Stage 2, open, no depth, no slough) Staging Stage 2 -- Stage 2 Stage 2 Valentine-wound Assessment -- ELIANA -- ELIANA Margins Unattached edges ELIANA Unattached edges ELIANA Drainage Amount Scant ELIANA -- ELIANA Drainage Description -- ELIANA -- ELIANA Dressing Status -- -- Clean/Dry/Intact Clean/Dry/Intact Dressing/Intervention -- Foam (Comment-type) Foam (Comment-type) Foam (Comment-type) Pressure Ulcer/Pressure Injury 12/19/19 Left Buttocks sm open area, stg 2, pink, allevyn Date First Assessed 12/19/19 Site: Buttocks Time First Assessed 15 Days: 5 Present on Hospital Admission: Yes Present on Transfer to Nursing Division: Yes Location Orientation: Left Wound Description (Comments): sm open area, stg 2, pink, allevyn Assessments 12/24/1982212/23/19202412/23/1980412/22/192029 Pressure Ulcer Status Evolving Evolving Evolving Evolving Description Non-intact, red/pink wound bed (c/w Stage 2, open, no depth, no slough) -- Non-intact, red/pink wound bed (c/w Stage 2, open, no depth, no slough) Non-intact, red/pink wound bed (c/w Stage 2, open, no depth, no slough) Staging Stage 2 -- Stage 2 Stage 2 Valentine-wound Assessment -- ELIANA -- ELIANA Margins Undefined edges -- Unattached edges ELIANA Drainage Amount Scant ELIANA -- ELIANA Drainage Description -- ELIANA -- ELIANA Dressing Status -- -- -- Clean/Dry/Intact Dressing/Intervention -- Foam (Comment-type) Foam (Comment-type) Foam (Comment-type) Hardin Fall Risk Most Recent Value Auto Low/High - if selected proceed to interventions High risk-visit due to a fall or hx of > 1 fall in past 3 months ............filed at 12/19/2019 1400 History of Falling 0 ............filed at 12/24/2019 1000 Secondary Diagnosis 15 ............filed at 12/24/2019 1000 Ambulatory Aids 15 ............filed at 12/24/2019 1000 Intravenous Therapy/Heparin/Saline Lock 20 ............filed at 12/24/2019 1000 Gait/Transferring 10 ............filed at 12/24/2019 1000 Mental Status 0 ............filed at 12/24/2019 1000 Hardin Fall Risk Score 60 ............filed at 12/24/2019 1000 Vital Signs 12/22 0700 - 12/23 0659 12/23 07 - 12/23 1437 Most Recent Temp (??C) 36.3 - 36.9 36.5 - 36.6 36.5 (97.7) Pulse 89 - 109 88 - 97 97 Resp 16 - 18 18 18 SpO2 (%) 96 - 100 98 - 99 99 BP 131/82 - 147/103 127/87 - 149/100 128/85 MAP (mmHg) 116 98 - 120 98 Default Flowsheet Data (most recent) Endurance Tests No documentation. Default Flowsheet Data (most recent) Balance Tests - 12/22/19 0936 Tinetti Sitting Balance 0 Arises 0 Attempts to Arise 0 Immediate Standing Balance (First 5 Seconds) 0 Standing Balance 0 Nudged 0 NT Eyes Closed 0 NT Turned 360 Degrees: Steadiness 0 Turned 360 Degrees: Continuity of Steps 0 Sitting Down 1 Balance Score 1 Nursing Nutrition Feeding Level of Assistance 12/21 2030 Able to feed self 12/20 220 Able to feed self Nursing Mobility Activity 12/23 0825 Chair 12/23 0100 Sleeping 12/23 0000 Sleeping 12/23 1999 Resting in bed 12/22 1635 Resting in bed 12/22 1355 Resting in bed 12/22 1200 Chair 12/22 0816 Resting in bed 12/22 0501 Sleeping 12/22 0318 Sleeping 12/22 0200 Resting in bed 12/22 0043 Resting in bed 12/21 2255 Sleeping 12/21 2130 Sleeping 12/21 2030 Resting in bed 12/21 0825 Resting in bed 12/21 0559 Sleeping 12/21 0356 Sleeping 12/21 0201 Sleeping 12/21 0044 Sleeping 12/21 0010 Sleeping 12/20 2200 Resting in bed 12/20 1535 Resting in bed Level of Assistance 12/23 0825 Minimal assist, patient does 75% or more 12/23 1999 Minimal assist, patient does 75% or more 12/21 2029 Minimal assist, patient does 75% or more 12/21 0825 Independent 12/20 2199 Moderate assist, patient does 50-74% 12/20 153 Independent Assistive Device 12/21 2029 None 12/20 2199 None Repositioned 12/23 1000 Turns self 12/23 0100 Turns self 12/23 0000 Turns self 12/22 2000 Turns self 12/22 1400 Turns self 12/21 2030 Turns self 12/21 1200 Turns self 12/20 2200 Turns self 12/20 1535 Left side Positioning Frequency 12/23 1000 Able to turn self 12/23 0100 Able to turn self 12/23 0000 Able to turn self 12/22 2000 Able to turn self 12/22 1400 Able to turn self 12/22 0200 Able to turn self 12/21 2030 Able to turn self 12/21 1200 Able to turn self 12/20 2200 Able to turn self 12/20 1535 Able to turn self Head of Bed Elevated 12/23 1000 Self regulated 12/23 0100 Self regulated 12/23 0000 Self regulated 12/22 2000 Self regulated 12/22 1400 Self regulated 12/22 0200 Self regulated 12/21 2030 Self regulated 12/21 1200 Self regulated 12/20 2200 Self regulated 12/20 1535 Self regulated Range of Motion 12/21 2029 Active;All extremities 12/20 2199 Active;All extremities Type of Device 12/23 1999 Mechanical compression 12/20 2199 Mechanical compression Mechanical Compression Site 12/23 1999 Bilateral 12/20 2199 Bilateral Mechanical Compression Type 12/23 1999 IPC/SCD 12/20 2199 IPC/SCD Mechanical Compression Status 12/23 1999 Off 12/20 2199 Off , Meds and Admin Active Only All Meds/Most Recent Administrations sodium chloride 0.9% flush 0.5-20 mL [[id number]] Ordering Provider: Hola Weinstein MD Status: Verified Ordered On: 12/18/192102 Start: 12/18/192199 Dose (Remaining/Total): 0.5-20 mL (--/--) Route: intra-catheter Frequency: Every 8 hours scheduled Rate/Duration: -- / -- Admin Instructions: Flush volume based on line type and size. Timestamps Action Dose Route Other Information 12/23/192024 Given 10 mL intra-catheter Performed by: Jane Hager RN Scanned Package: [id number] sodium chloride 0.9% flush 0.5-20 mL [[id number]] Ordering Provider: Hola Weinstein MD Status: Verified Ordered On: 12/18/192102 Start: 12/18/192099 Dose (Remaining/Total): 0.5-20 mL (--/--) Route: intra-catheter Frequency: As needed Rate/Duration: -- / -- Admin Instructions: Flush volume based on line type and size. Flush before and after each use. (No admins recorded for this medication) metroNIDAZOLE (FLAGYL) 500 mg/100 mL in sodium chloride (premix) 500 mg [[id number]] Ordering Provider: Hola Weinstein MD Status: Completed (Past End Date/Time) Ordered On: 12/18/192158 Starts/Ends: 12/18/192229 - 12/19/19 0115 Dose (Remaining/Total): 500 mg (0/1) Route: intravenous Frequency: Once Rate/Duration: 200 mL/hr / 30 Minutes Admin Instructions: Room temperature only Timestamps Action Dose / Rate / Duration Route Other Information 12/19/19 0045 New Bag 500 mg 200 mL/hr 30 Minutes intravenous Performed by: Sada Jorge RN magnesium sulfate 4 g/100 mL in water (premix) 4 g [[id number]] Ordering Provider: Hola Weinstein MD Status: Completed (Past End Date/Time) Ordered On: 12/18/192343 Starts/Ends: 12/19/19 0015 - 12/19/19 0310 Dose (Remaining/Total): 4 g (0/1) Route: intravenous Frequency: Once Rate/Duration: -- / 90 Minutes Timestamps Action Dose / Duration Route Other Information 12/19/19 0140 New Bag 4 g 90 Minutes intravenous Performed by: Sada Jorge RN potassium chloride 40 mEq/520 mL in sodium chloride 0.9% (premix) 40 mEq [[id number]] Ordering Provider: Hola Weinstein MD Status: Completed (Past End Date/Time) Ordered On: 12/18/192343 Starts/Ends: 12/19/19 0015 - 12/19/19 0540 Dose (Remaining/Total): 40 mEq (0/1) Route: intravenous Frequency: Once Rate/Duration: 130 mL/hr / 4 Hours Admin Instructions: Total dose = 60 mEq Timestamps Action Dose / Rate / Duration Route Other Information 12/19/19 0140 New Bag 40 mEq 130 mL/hr 4 Hours intravenous Performed by: Sada Jorge RN potassium chloride 20 mEq/260 mL in sodium chloride 0.9% (premix) 20 mEq [[id number]] Ordering Provider: Hola Weinstein MD Status: Completed (Past End Date/Time) Ordered On: 12/18/19 2344 Starts/Ends: 12/19/19 0414 - 12/19/19 1017 Dose (Remaining/Total): 20 mEq (0/1) Route: intravenous Frequency: Once Rate/Duration: -- / 2 Hours Admin Instructions: Total dose = 60 mEq. Start immediately after first potassium chloride infusion ends. Timestamps Action Dose / Duration Route Other Information 12/19/19 0817 New Bag 20 mEq 2 Hours intravenous Performed by: Tanja Garcia RN enoxaparin (LOVENOX) syringe 40 mg [[id number]] Ordering Provider: Gato Hamilton MD Status: Dispensed Ordered On: 12/19/19 0603 Start: 12/19/19 2100 Dose (Remaining/Total): 40 mg (--/--) Route: subcutaneous Frequency: Daily (for enoxaparin) Rate/Duration: -- / -- Timestamps Action Dose Route / Site Other Information 12/23/192021 Given 40 mg subcutaneous Right Lower Abdomen Performed by: Jane Hager RN Scanned Package: [id number] sodium chloride 0.9% flush 0.5-20 mL [[id number]] Ordering Provider: Byron Begum MD Status: Verified Ordered On: 12/19/19 1503 Start: 12/19/19 1545 Dose (Remaining/Total): 0.5-20 mL (--/--) Route: intra-catheter Frequency: Every 8 hours scheduled Rate/Duration: -- / -- Admin Instructions: Flush volume based on line type and size. Timestamps Action Dose Route Other Information 12/24/19 0635 Given 10 mL intra-catheter Performed by: Jane Hager RN Scanned Package: [id number] sodium chloride 0.9% flush 0.5-20 mL [[id number]] Ordering Provider: Byron Begum MD Status: Verified Ordered On: 12/19/19 1503 Start: 12/19/19 1503 Dose (Remaining/Total): 0.5-20 mL (--/--) Route: intra-catheter Frequency: As needed Rate/Duration: -- / -- Admin Instructions: Flush volume based on line type and size. Flush before and after each use. (No admins recorded for this medication) midazolam (VERSED) preservative free injection [[id number]] Ordering Provider: Katie Gilbert MD Status: Completed (Past End Date/Time) Ordered On: 12/19/19 1153 Frequency: Code/trauma/sedation medication Timestamps Action Dose Route Other Information 12/19/19 1152 Given 1 mg intravenous Performed by: Taryn Herrera RN fentaNYL (SUBLIMAZE) preservative free injection [[id number]] Ordering Provider: Katie Gilbert MD Status: Completed (Past End Date/Time) Ordered On: 12/19/19 1153 Frequency: Code/trauma/sedation medication Timestamps Action Dose Route Other Information 12/19/19 1153 Given 50 mcg intravenous Performed by: Taryn Herrera RN lidocaine PF (XYLOCAINE) 10 mg/mL (1 %) preservative free injection [[id number]] Ordering Provider: Byron Begum MD Status: Completed (Past End Date/Time) Ordered On: 12/19/19 1155 Frequency: Code/trauma/sedation medication Timestamps Action Dose Route Other Information 12/19/19 115 Given 10 mL Injection Performed by: Byron Begum MD Documented by: Taryn Herrera RN iothalamate meglumine (CONRAY) 60 % injection [[id number]] Ordering Provider: Byron Begum MD Status: Completed (Past End Date/Time) Ordered On: 09/12/20 1209 Frequency: Code/trauma/sedation medication Timestamps Action Dose Route / Site / Linked Line Other Information 12/19/191208 Given 10 mL -- Performed by: Byron Begum MD Documented by: Taryn Herrera RN ondansetron ODT (ZOFRAN-ODT) disintegrating tablet 4 mg [[id number]] Ordering Provider: LORI Wilson Status: Verified Ordered On: 12/20/19544 Start: 12/20/19544 Dose (Remaining/Total): 4 mg (--/--) Route: oral Frequency: Every 4 hours PRN Rate/Duration: -- / -- (No admins recorded for this medication) acetaminophen (TYLENOL) tablet 1,000 mg [[id number]] Ordering Provider: LORI Wilson Status: Verified Ordered On: 12/20/19544 Start: 12/20/19544 Dose (Remaining/Total): 1,000 mg (--/--) Route: oral Frequency: Every 6 hours PRN Rate/Duration: -- / -- (No admins recorded for this medication) potassium chloride (KAYCIEL) 1.3 mEq/mL oral liquid 40 mEq [[id number]] Ordering Provider: LORI Wilson Status: Completed (Past End Date/Time) Ordered On: 12/20/19545 Starts/Ends: 12/20/19629 - 12/20/19606 Dose (Remaining/Total): 40 mEq (0/1) Route: feeding tube Frequency: Once Rate/Duration: -- / -- Admin Instructions: Recommend to dilute each 15 mL with at least 6 ounces of water or juice prior to administration. Timestamps Action Dose Route Other Information 12/20/19606 Given 40 mEq feeding tube Performed by: Valeria Cole RN Scanned Package: [id number] aspirin enteric coated tablet 325 mg [[id number]] Ordering Provider: LORI Wilson Status: Dispensed Ordered On: 12/21/19 0754 Start: 12/21/19 0900 Dose (Remaining/Total): 325 mg (--/--) Route: oral Frequency: Daily Rate/Duration: -- / -- Admin Instructions: Do not crush, chew, cut, dissolve, open or otherwise manipulate tablet/capsule. Timestamps Action Dose Route Other Information 12/24/19822 Given 325 mg oral Performed by: Jannie Gonsales RN Scanned Package: [id number] dilTIAZem XR (CARDIZEM CD,DILACOR XR) 24 hour capsule 240 mg [[id number]] Ordering Provider: LORI Wilson Status: Dispensed Ordered On: 12/21/19753 Start: 12/21/19899 Dose (Remaining/Total): 240 mg (--/--) Route: oral Frequency: Daily Rate/Duration: -- / -- Admin Instructions: Do not crush, chew, cut, dissolve, open or otherwise manipulate tablet/capsule. Timestamps Action Dose Route Other Information 12/24/19822 Given 240 mg oral Performed by: Jannie Gonsales RN Scanned Package: [id number] folic acid (FOLVITE) tablet 1 mg [[id number]] Ordering Provider: LORI Wilson Status: Dispensed Ordered On: 12/21/19753 Start: 12/21/19899 Dose (Remaining/Total): 1 mg (--/--) Route: oral Frequency: Daily Rate/Duration: -- / -- Timestamps Action Dose Route Other Information 12/24/19822 Given 1 mg oral Performed by: Jannie Gonsales RN Scanned Package: [id number] magnesium oxide (MAG-OX) tablet 400 mg [[id number]] Ordering Provider: LORI Wilson Status: Dispensed Ordered On: 12/21/19753 Start: 12/21/19899 Dose (Remaining/Total): 400 mg (--/--) Route: oral Frequency: Daily Rate/Duration: -- / -- Admin Instructions: 1 tablet = Magnesium oxide 400 mg = 241.3 mg elemental magnesium Timestamps Action Dose Route Other Information 12/24/19821 Given 400 mg oral Performed by: Jannie Gonsales RN Scanned Package: [id number] metoprolol tartrate (LOPRESSOR) immediate release tablet 25 mg [[id number]] Ordering Provider: LORI Wilson Status: Dispensed Ordered On: 12/21/19753 Start: 12/21/19899 Dose (Remaining/Total): 25 mg (--/--) Route: oral Frequency: 2 times daily Rate/Duration: -- / -- Timestamps Action Dose Route Other Information 12/24/19821 Given 25 mg oral Performed by: Jannie Gonsales RN Scanned Package: [id number] (PROTONIX) extended release tablet 40 mg [[id number]] Ordering Provider: LORI Wilson Status: Dispensed Ordered On: 12/21/19753 Start: 12/21/19899 Dose (Remaining/Total): 40 mg (--/--) Route: oral Frequency: Daily Rate/Duration: -- / -- Admin Instructions: Do not crush, chew, cut, dissolve, open or otherwise manipulate tablet/capsule. Timestamps Action Dose Route Other Information 12/24/19822 Given 40 mg oral Performed by: Jannie Gonsales RN Scanned Package: [id number] polyethylene glycol (MIRALAX) packet 17 g [[id number]] Ordering Provider: LORI Wilson Status: Dispensed Ordered On: 12/21/19753 Start: 12/21/19899 Dose (Remaining/Total): 17 g (--/--) Route: oral Frequency: Daily Rate/Duration: -- / -- (No admins recorded for this medication) QUEtiapine (SEROquel) tablet 12.5 mg [[id number]] Ordering Provider: LORI Wilson Status: Dispensed Ordered On: 12/21/19753 Start: 12/21/192099 Dose (Remaining/Total): 12.5 mg (--/--) Route: oral Frequency: Nightly Rate/Duration: -- / -- Timestamps Action Dose Route Other Information 12/23/192022 Given 12.5 mg oral Performed by: Jane Hager RN Scanned Package: [id number] thiamine (VITAMIN B1) tablet 100 mg [[id number]] Ordering Provider: LORI Wilson Status: Dispensed Ordered On: 12/21/19 0754 Start: 12/21/19 0900 Dose (Remaining/Total): 100 mg (--/--) Route: oral Frequency: Daily Rate/Duration: -- / -- Timestamps Action Dose Route Other Information 12/24/19 0823 Given 100 mg oral Performed by: Jannie Gonsales RN Scanned Package: [id number] meropenem (MERREM) 1,000 mg/110 mL in sodium chloride 0.9% (premix) 1,000 mg [[id number]] Ordering Provider: LORI Wilson Status: Dispensed Ordered On: 12/21/19 1039 Start: 12/21/19 1600 Dose (Remaining/Total): 1,000 mg (--/--) Route: intravenous Frequency: Every 8 hours scheduled Rate/Duration: 220 mL/hr / 30 Minutes Line Med Link Info Comment Midline Catheter 12/05/19 0000 Right Upper arm 12/21/19 1618 by Sharonda Guadarrama RN -- Timestamps Action Dose / Rate / Duration Route Other Information 12/24/19 0810 New Bag 1,000 mg 220 mL/hr 30 Minutes intravenous Performed by: Jannie Gonsales RN levalbuterol (XOPENEX) 1.25 mg/3 mL nebulizer solution 1.25 mg [[id number]] Ordering Provider: LORI Wilson Status: Dispensed Ordered On: 12/21/19 1113 Start: 12/21/19 1115 Dose (Remaining/Total): 1.25 mg (--/--) Route: nebulization Frequency: Every 6 hours PRN (respiratory care faculty) Rate/Duration: -- / -- (No admins recorded for this medication) , Wound Info Only Patient Lines/Drains/Airways Status Active Wound / Pressure ulcer / Johnson / Negative Pressure Wound Wound 12/19/19 Abscess Lower;Right Abdomen swollen, red, draining serosang, MD packed and dressed this AM Date First Assessed 12/19/19 Site: Abdomen Time First Assessed 15 Days: 5 Present on Hospital Admission: Yes Wound Type: Abscess Location Orientation: Lower;Right Wound Description (Comments): swollen, red, draining serosang, MDpacked and dressed this AM Assessments 12/22/192029 Wound Status Evolving Site Assessment ELIANA Valentine-wound Assessment ELIANA Margins ELIANA Closure Unable to assess Drainage Amount Scant Drainage Description ELIANA Drainage Odor No odor Dressing Status Clean/Dry/Intact Dressing Gauze Pressure Ulcer/Pressure Injury 12/19/19 Right Buttocks stg 2 blanca size, pink, single thickness, allevyn Date First Assessed 12/19/19 Site: Buttocks Time First Assessed 0915 Days: 5 Present on Hospital Admission: Yes Present on Transfer to Nursing Division: Yes Location Orientation: Right Wound Description (Comments): stg 2 blanca size, pink, single thickness, allevyn Assessments 12/24/1982212/23/19202412/23/1980412/22/192029 Pressure Ulcer Status Evolving Evolving Evolving Evolving Description Non-intact, red/pink wound bed (c/w Stage 2, open, no depth, no slough) -- Non-intact, red/pink wound bed (c/w Stage 2, open, no depth, no slough) Non-intact, red/pink wound bed (c/w Stage 2, open, no depth, no slough) Staging Stage 2 -- Stage 2 Stage 2 Valentine-wound Assessment -- ELIANA -- ELIANA Margins Unattached edges ELIANA Unattached edges ELIANA Drainage Amount Scant ELIANA -- ELIANA Drainage Description -- ELIANA -- ELIANA Dressing Status -- -- Clean/Dry/Intact Clean/Dry/Intact Dressing/Intervention -- Foam (Comment-type) Foam (Comment-type) Foam (Comment-type) Pressure Ulcer/Pressure Injury 12/19/19 Left Buttocks sm open area, stg 2, pink, allevyn Date First Assessed 12/19/19 Site: Buttocks Time First Assessed 15 Days: 5 Present on Hospital Admission: Yes Present on Transfer to Nursing Division: Yes Location Orientation: Left Wound Description (Comments): sm open area, stg 2, pink, allevyn Assessments 12/24/1982212/23/19202412/23/1980412/22/192029 Pressure Ulcer Status Evolving Evolving Evolving Evolving Description Non-intact, red/pink wound bed (c/w Stage 2, open, no depth, no slough) -- Non-intact, red/pink wound bed (c/w Stage 2, open, no depth, no slough) Non-intact, red/pink wound bed (c/w Stage 2, open, no depth, no slough) Staging Stage 2 -- Stage 2 Stage 2 Valentine-wound Assessment -- ELIANA -- ELIANA Margins Undefined edges -- Unattached edges ELIANA Drainage Amount Scant ELIANA -- ELIANA Drainage Description -- ELIANA -- ELIANA Dressing Status -- -- -- Clean/Dry/Intact Dressing/Intervention -- Foam (Comment-type) Foam (Comment-type) Foam (Comment-type) , Vitals Info Only Vital Signs 12/22 07 - 12/23 0659 12/23 07 - 12/23 1437 Most Recent Temp (??C) 36.3 - 36.9 36.5 - 36.6 36.5 (97.7) Pulse 89 - 109 88 - 97 97 Resp 16 - 18 18 18 SpO2 (%) 96 - 100 98 - 99 99 BP 131/82 - 147/103 127/87 - 149/100 128/85 MAP (mmHg) 116 98 - 120 98 , Oxygen Info Only Default Flowsheet Data (most recent) Endurance Tests No documentation. Default Flowsheet Data (last 48 hours) Oxygen Row Name 12/24/19 1128 12/24/19 1025 12/24/19 1001 12/24/19 0759 12/24/19 0300 Oxygen Therapy/Pulse Ox O2 Therapy None (Room air) None (Room air) None (Room air) None (Room air) None (Room air) SpO2 99 % 99 % 99 % 98 % 98 % Row Name 12/24/19 0000 12/23/19 1954 12/23/19 1600 12/23/19 0815 12/23/19 0405 Oxygen Therapy/Pulse Ox O2 Therapy None (Room air) None (Room air) None (Room air) -- None (Room air) SpO2 97 % 99 % 100 % 96 % 96 % Row Name 12/22/19 2320 12/22/19 2030 12/22/19 1940 12/22/19 1700 Oxygen Therapy/Pulse Ox O2 Therapy None (Room air) None (Room air) None (Room air) None (Room air) SpO2 99 % -- 98 % 97 % * Plan of Care - Jody Corrales - 12/24/2019 10:45 AM CDT Problem: Balance Goal: STG - Maintains dynamic standing balance without upper extremity support Description: During fxl task for at least 10 min with spv Outcome: Not Progressing Problem: Dressings Lower Extremities Goal: STG - Patient to complete lower body dressing Description: With spv Outcome: Not Progressing Problem: Grooming Goal: STG - Patient will complete grooming Description: In standing with spv Outcome: Not Progressing Problem: Toileting Goal: STG - Patient will complete toileting tasks with Description: spv Outcome: Not Progressing Problem: Transfers Goal: STG - Patient will perform toilet transfer Description: With spv Outcome: Not Progressing Cosigned by Miladys Victor, LESLIE at 12/24/2019 4:00 PM CDT * Plan of Care - Jannie Gonsales RN - 12/24/2019 10:28 AM CDT Goals: Clinical Goals for the Shift: rest, monitor VSS, I/O Summary: Problem: Lack of Knowledge: Goal: Ability to state ways to decrease the risk of falls will improve Outcome: Progressing Problem: Safety: Goal: Will remain free from falls Outcome: Progressing Goal: Will remain free from injury from falls Outcome: Progressing Goal: Will remain free from falls and injury in home environment Outcome: Progressing Problem: Lack of Knowledge: Goal: Ability to develop a pain control plan will improve Outcome: Progressing Goal: Ability to identify pain intensity on a pain scale and rate it consistently will improve Outcome: Progressing Goal: Ability to notify healthcare provider of pain before it becomes unmanageable or unbearable will improve Outcome: Progressing Problem: Medication: Goal: Satisfaction with pain management regimen will improve Outcome: Progressing Problem: Sensory: Goal: Ability to identify factors that increase the pain will improve Outcome: Progressing Goal: Pain level will decrease Outcome: Progressing Problem: Activity: Goal: Risk for activity intolerance will decrease Outcome: Progressing Problem: Lack of Knowledge: Goal: Knowledge of diagnostic tests will improve Outcome: Progressing Goal: Knowledge of disease or condition will improve Outcome: Progressing Goal: Knowledge of safety precautions will improve Outcome: Progressing Goal: Knowledge of the prescribed therapeutic regimen will improve Outcome: Progressing Problem: Health Behavior: Goal: Ability to state signs and symptoms to report to health care provider will improve Outcome: Progressing Problem: Physical Regulation: Goal: Ability to maintain clinical measurements within normal limits will improve Outcome: Progressing Problem: Infection Risk: Goal: Will remain free from infection Outcome: Progressing Problem: Safety: Goal: Ability to remain free from injury will improve Outcome: Progressing Goal: Will remain free from falls Outcome: Progressing Problem: Self-Care: Goal: Ability to participate in self-care as condition permits will improve Outcome: Progressing Problem: Sensory: Goal: Pain level will decrease Outcome: Progressing Goal: Ability to develop a pain control plan will improve Outcome: Progressing Problem: Skin Integrity: Goal: Risk for impaired skin integrity will decrease Outcome: Progressing Problem: Tissue Perfusion: Goal: Risk factors for ineffective tissue perfusion will decrease Outcome: Progressing Problem: Activity: Goal: Mobility will improve Outcome: Progressing Problem: Lack of Knowledge: Goal: Understanding of ways to prevent future skin breakdown will improve Outcome: Progressing Problem: Skin Integrity: Goal: Risk for impaired skin integrity will decrease Outcome: Progressing Goal: Ability to demonstrate warm and dry skin will improve Outcome: Progressing Goal: Circulation will improve to fullest extent possible Outcome: Progressing Problem: Health Behavior: Goal: Understanding of discharge needs will improve Outcome: Progressing * Plan of Care - Mariaa Pereyra LCSW - 12/24/2019 9:11 AM CDT loft worker apprentice called [phone] attempting to get prior auth for SNF for patient. The voicemail for this number gave another number [phone] for SNF auths. loft worker apprentice called [phone] perthis message to start authorization clinicals needed to be faxed to [phone]. Fax has been sent. loft worker apprentice requested updated therapy notes from both PT and OT. Plan is for patient to discharge to [facility] once we have insurance auth. loft worker apprentice received a call from Liza with [facility] she shared that they have two employees that have tested positive and they are now on shutdown. loft worker apprentice called to update patients Raine [phone] she expressed her frustrations. Offered support and encouragement. loft worker apprentice expanded SNF referral to the [place] side per Raien request. [facility] referrals sent. New plan discharge pending accepting SNF and insurance auth. Mariaa Pereyra LCSW Social Work [phone] * Plan of Care - Jane Hager RN - 12/23/2019 10:01 PM CDT Goals: Clinical Goals for the Shift: rest, monitor VSS, I/O Summary: Problem: Lack of Knowledge: Goal: Ability to state ways to decrease the risk of falls will improve Outcome: Progressing Problem: Safety: Goal: Will remain free from falls Outcome: Progressing Goal: Will remain free from injury from falls Outcome: Progressing Goal: Will remain free from falls and injury in home environment Outcome: Progressing Problem: Lack of Knowledge: Goal: Ability to develop a pain control plan will improve Outcome: Progressing Goal: Ability to identify pain intensity on a pain scale and rate it consistently will improve Outcome: Progressing Goal: Ability to notify healthcare provider of pain before it becomes unmanageable or unbearable will improve Outcome: Progressing Problem: Medication: Goal: Satisfaction with pain management regimen will improve Outcome: Progressing Problem: Sensory: Goal: Ability to identify factors that increase the pain will improve Outcome: Progressing Goal: Pain level will decrease Outcome: Progressing Problem: Activity: Goal: Risk for activity intolerance will decrease Outcome: Progressing Problem: Lack of Knowledge: Goal: Knowledge of diagnostic tests will improve Outcome: Progressing Goal: Knowledge of disease or condition will improve Outcome: Progressing Goal: Knowledge of safety precautions will improve Outcome: Progressing Goal: Knowledge of the prescribed therapeutic regimen will improve Outcome: Progressing Problem: Health Behavior: Goal: Ability to state signs and symptoms to report to health care provider will improve Outcome: Progressing Problem: Physical Regulation: Goal: Ability to maintain clinical measurements within normal limits will improve Outcome: Progressing Problem: Infection Risk: Goal: Will remain free from infection Outcome: Progressing Problem: Safety: Goal: Ability to remain free from injury will improve Outcome: Progressing Goal: Will remain free from falls Outcome: Progressing Problem: Self-Care: Goal: Ability to participate in self-care as condition permits will improve Outcome: Progressing Problem: Sensory: Goal: Pain level will decrease Outcome: Progressing Goal: Ability to develop a pain control plan will improve Outcome: Progressing Problem: Skin Integrity: Goal: Risk for impaired skin integrity will decrease Outcome: Progressing Problem: Tissue Perfusion: Goal: Risk factors for ineffective tissue perfusion will decrease Outcome: Progressing Problem: Activity: Goal: Mobility will improve Outcome: Progressing Problem: Lack of Knowledge: Goal: Understanding of ways to prevent future skin breakdown will improve Outcome: Progressing Problem: Skin Integrity: Goal: Risk for impaired skin integrity will decrease Outcome: Progressing Goal: Ability to demonstrate warm and dry skin will improve Outcome: Progressing Goal: Circulation will improve to fullest extent possible Outcome: Progressing Problem: Health Behavior: Goal: Understanding of discharge needs will improve Outcome: Progressing * Plan of Care - Jannie Gonsales RN - 12/23/2019 2:02 PM CDT Goals: Clinical Goals for the Shift: keep clean and dry, promote rest Summary: Problem: Lack of Knowledge: Goal: Ability to state ways to decrease the risk of falls will improve Outcome: Progressing Problem: Safety: Goal: Will remain free from falls Outcome: Progressing Goal: Will remain free from injury from falls Outcome: Progressing Goal: Will remain free from falls and injury in home environment Outcome: Progressing Problem: Lack of Knowledge: Goal: Ability to develop a pain control plan will improve Outcome: Progressing Goal: Ability to identify pain intensity on a pain scale and rate it consistently will improve Outcome: Progressing Goal: Ability to notify healthcare provider of pain before it becomes unmanageable or unbearable will improve Outcome: Progressing Problem: Medication: Goal: Satisfaction with pain management regimen will improve Outcome: Progressing Problem: Sensory: Goal: Ability to identify factors that increase the pain will improve Outcome: Progressing Goal: Pain level will decrease Outcome: Progressing Problem: Activity: Goal: Risk for activity intolerance will decrease Outcome: Progressing Problem: Lack of Knowledge: Goal: Knowledge of diagnostic tests will improve Outcome: Progressing Goal: Knowledge of disease or condition will improve Outcome: Progressing Goal: Knowledge of safety precautions will improve Outcome: Progressing Goal: Knowledge of the prescribed therapeutic regimen will improve Outcome: Progressing Problem: Health Behavior: Goal: Ability to state signs and symptoms to report to health care provider will improve Outcome: Progressing Problem: Physical Regulation: Goal: Ability to maintain clinical measurements within normal limits will improve Outcome: Progressing Problem: Infection Risk: Goal: Will remain free from infection Outcome: Progressing Problem: Safety: Goal: Ability to remain free from injury will improve Outcome: Progressing Goal: Will remain free from falls Outcome: Progressing Problem: Self-Care: Goal: Ability to participate in self-care as condition permits will improve Outcome: Progressing Problem: Sensory: Goal: Pain level will decrease Outcome: Progressing Goal: Ability to develop a pain control plan will improve Outcome: Progressing Problem: Skin Integrity: Goal: Risk for impaired skin integrity will decrease Outcome: Progressing Problem: Tissue Perfusion: Goal: Risk factors for ineffective tissue perfusion will decrease Outcome: Progressing Problem: Activity: Goal: Mobility will improve Outcome: Progressing Problem: Lack of Knowledge: Goal: Understanding of ways to prevent future skin breakdown will improve Outcome: Progressing Problem: Skin Integrity: Goal: Risk for impaired skin integrity will decrease Outcome: Progressing Goal: Ability to demonstrate warm and dry skin will improve Outcome: Progressing Goal: Circulation will improve to fullest extent possible Outcome: Progressing Problem: Health Behavior: Goal: Understanding of discharge needs will improve Outcome: Progressing * Plan of Care - Mariaa Pereyra LCSW - 12/23/2019 12:50 PM CDT loft worker apprentice spoke with [facility] and they can not provide patient with IV abx every 8 hours. loft worker apprentice called [facility] [phone] and they have accepted patient they are able to meet all of patients needs. loft worker apprentice spoke with patients spouse Raine [phone] and provided an update, she is agreeable with this plan. loft worker apprentice started insurance authorization through patients [employer] [phone] spoke with an agent and she informed geriatric social worker to fax clinicals to [phone]. She explained geriatric social worker will need to stay on hold and wait to speak with the next person. Spoke with Pallavi Lopez at [employer] she shared that the above fax number is incorrect. Pallavi reported it was a different department that handles the prior auths. She provided geriatric social worker with a new phone number [phone] an email address. Mariaa Pereyra LCSW Social Work [phone] * [facility] Note - Mariaa Pereyra LCSW - 12/23/2019 8:41 AM CDT Patient Information: Meds and Admin Active Only All Meds/Most Recent Administrations sodium chloride 0.9% flush 0.5-20 mL [[id number]] Ordering Provider: Hola Weinstein MD Status: Verified Ordered On: 12/18/192102 Start: 12/18/192199 Dose (Remaining/Total): 0.5-20 mL (--/--) Route: intra-catheter Frequency: Every 8 hours scheduled Rate/Duration: -- / -- Admin Instructions: Flush volume based on line type and size. Timestamps Action Dose Route Other Information 12/21/192199 Given 10 mL intra-catheter Performed by: Sada Jorge RN Scanned Package: [id number] sodium chloride 0.9% flush 0.5-20 mL [[id number]] Ordering Provider: Hola Weinstein MD Status: Verified Ordered On: 12/18/192102 Start: 12/18/192099 Dose (Remaining/Total): 0.5-20 mL (--/--) Route: intra-catheter Frequency: As needed Rate/Duration: -- / -- Admin Instructions: Flush volume based on line type and size. Flush before and after each use. (No admins recorded for this medication) metroNIDAZOLE (FLAGYL) 500 mg/100 mL in sodium chloride (premix) 500 mg [[id number]] Ordering Provider: Hola Weinstein MD Status: Completed (Past End Date/Time) Ordered On: 12/18/192158 Starts/Ends: 12/18/19 2230 - 12/19/19 0115 Dose (Remaining/Total): 500 mg (0/1) Route: intravenous Frequency: Once Rate/Duration: 200 mL/hr / 30 Minutes Admin Instructions: Room temperature only Timestamps Action Dose / Rate / Duration Route Other Information 12/19/19 0045 New Bag 500 mg 200 mL/hr 30 Minutes intravenous Performed by: Sada Jorge RN magnesium sulfate 4 g/100 mL in water (premix) 4 g [[id number]] Ordering Provider: Hloa Weinstein MD Status: Completed (Past End Date/Time) Ordered On: 12/18/192343 Starts/Ends: 12/19/19 0015 - 12/19/19 0310 Dose (Remaining/Total): 4 g (0/1) Route: intravenous Frequency: Once Rate/Duration: -- / 90 Minutes Timestamps Action Dose / Duration Route Other Information 12/19/19 0140 New Bag 4 g 90 Minutes intravenous Performed by: Sada Jorge RN potassium chloride 40 mEq/520 mL in sodium chloride 0.9% (premix) 40 mEq [[id number]] Ordering Provider: Hola Weinstein MD Status: Completed (Past End Date/Time) Ordered On: 12/18/192343 Starts/Ends: 12/19/19 0015 - 12/19/19 0540 Dose (Remaining/Total): 40 mEq (0/1) Route: intravenous Frequency: Once Rate/Duration: 130 mL/hr / 4 Hours Admin Instructions: Total dose = 60 mEq Timestamps Action Dose / Rate / Duration Route Other Information 12/19/19 0140 New Bag 40 mEq 130 mL/hr 4 Hours intravenous Performed by: Sada Jorge RN potassium chloride 20 mEq/260 mL in sodium chloride 0.9% (premix) 20 mEq [[id number]] Ordering Provider: Hola Weinstein MD Status: Completed (Past End Date/Time) Ordered On: 12/18/192343 Starts/Ends: 12/19/19 0414 - 12/19/19 1017 Dose (Remaining/Total): 20 mEq (0/1) Route: intravenous Frequency: Once Rate/Duration: -- / 2 Hours Admin Instructions: Total dose = 60 mEq. Start immediately after first potassium chloride infusion ends. Timestamps Action Dose / Duration Route Other Information 12/19/19816 New Bag 20 mEq 2 Hours intravenous Performed by: Tanja Garcia RN enoxaparin (LOVENOX) syringe 40 mg [[id number]] Ordering Provider: Gato Hamilton MD Status: Dispensed Ordered On: 12/19/19 06 Start: 12/19/192099 Dose (Remaining/Total): 40 mg (--/--) Route: subcutaneous Frequency: Daily (for enoxaparin) Rate/Duration: -- / -- Timestamps Action Dose Route / Site Other Information 12/22/192026 Given 40 mg subcutaneous Left Lower Abdomen Performed by: Sada Jorge RN Scanned Package: [id number] sodium chloride 0.9% flush 0.5-20 mL [[id number]] Ordering Provider: Byron Begum MD Status: Verified Ordered On: 12/19/19 150 Start: 12/19/195 Dose (Remaining/Total): 0.5-20 mL (--/--) Route: intra-catheter Frequency: Every 8 hours scheduled Rate/Duration: -- / -- Admin Instructions: Flush volume based on line type and size. Timestamps Action Dose Route Other Information 12/22/192033 Given 10 mL intra-catheter Performed by: Sada Jorge RN Scanned Package: [id number] sodium chloride 0.9% flush 0.5-20 mL [[id number]] Ordering Provider: Byron Begum MD Status: Verified Ordered On: 12/19/19 150 Start: 12/19/19 150 Dose (Remaining/Total): 0.5-20 mL (--/--) Route: intra-catheter Frequency: As needed Rate/Duration: -- / -- Admin Instructions: Flush volume based on line type and size. Flush before and after each use. (No admins recorded for this medication) midazolam (VERSED) preservative free injection [[id number]] Ordering Provider: Katie Gilbert MD Status: Completed (Past End Date/Time) Ordered On: 12/19/19 1153 Frequency: Code/trauma/sedation medication Timestamps Action Dose Route Other Information 12/19/19 1152 Given 1 mg intravenous Performed by: Taryn Herrera RN fentaNYL (SUBLIMAZE) preservative free injection [[id number]] Ordering Provider: Katie Gilbert MD Status: Completed (Past End Date/Time) Ordered On: 12/19/19 1153 Frequency: Code/trauma/sedation medication Timestamps Action Dose Route Other Information 12/19/191152 Given 50 mcg intravenous Performed by: Taryn Herrera RN lidocaine PF (XYLOCAINE) 10 mg/mL (1 %) preservative free injection [[id number]] Ordering Provider: Byron Begum MD Status: Completed (Past End Date/Time) Ordered On: 12/19/19 1155 Frequency: Code/trauma/sedation medication Timestamps Action Dose Route Other Information 12/19/191154 Given 10 mL Injection Performed by: Byron Begum MD Documented by: Taryn Herrera RN iothalamate meglumine (CONRAY) 60 % injection [[id number]] Ordering Provider: Byron Begum MD Status: Completed (Past End Date/Time) Ordered On: 12/19/19 120 Frequency: Code/trauma/sedation medication Timestamps Action Dose Route / Site / Linked Line Other Information 12/19/191208 Given 10 mL -- Performed by: Byron Begum MD Documented by: Taryn Herrera RN ondansetron ODT (ZOFRAN-ODT) disintegrating tablet 4 mg [[id number]] Ordering Provider: LORI Wilson Status: Verified Ordered On: 12/20/1945 Start: 12/20/19544 Dose (Remaining/Total): 4 mg (--/--) Route: oral Frequency: Every 4 hours PRN Rate/Duration: -- / -- (No admins recorded for this medication) acetaminophen (TYLENOL) tablet 1,000 mg [[id number]] Ordering Provider: LORI Wilson Status: Verified Ordered On: 12/20/19544 Start: 12/20/19544 Dose (Remaining/Total): 1,000 mg (--/--) Route: oral Frequency: Every 6 hours PRN Rate/Duration: -- / -- (No admins recorded for this medication) potassium chloride (KAYCIEL) 1.3 mEq/mL oral liquid 40 mEq [[id number]] Ordering Provider: LORI Wilson Status: Completed (Past End Date/Time) Ordered On: 12/20/19545 Starts/Ends: 12/20/19629 - 12/20/19606 Dose (Remaining/Total): 40 mEq (0/1) Route: feeding tube Frequency: Once Rate/Duration: -- / -- Admin Instructions: Recommend to dilute each 15 mL with at least 6 ounces of water or juice prior to administration. Timestamps Action Dose Route Other Information 12/20/19606 Given 40 mEq feeding tube Performed by: Valeria Cole RN Scanned Package: [id number] aspirin enteric coated tablet 325 mg [[id number]] Ordering Provider: LORI Wilson Status: Dispensed Ordered On: 12/21/19753 Start: 12/21/19899 Dose (Remaining/Total): 325 mg (--/--) Route: oral Frequency: Daily Rate/Duration: -- / -- Admin Instructions: Do not crush, chew, cut, dissolve, open or otherwise manipulate tablet/capsule. Timestamps Action Dose Route Other Information 12/23/19804 Given 325 mg oral Performed by: Jannie Gonsales RN Scanned Package: [id number] dilTIAZem XR (CARDIZEM CD,DILACOR XR) 24 hour capsule 240 mg [[id number]] Ordering Provider: LORI Wilson Status: Dispensed Ordered On: 12/21/19753 Start: 12/21/19899 Dose (Remaining/Total): 240 mg (--/--) Route: oral Frequency: Daily Rate/Duration: -- / -- Admin Instructions: Do not crush, chew, cut, dissolve, open or otherwise manipulate tablet/capsule. Timestamps Action Dose Route Other Information 12/23/19804 Given 240 mg oral Performed by: Jannie Gonsales RN Scanned Package: [id number] folic acid (FOLVITE) tablet 1 mg [[id number]] Ordering Provider: LORI Wilson Status: Dispensed Ordered On: 12/21/19753 Start: 12/21/19899 Dose (Remaining/Total): 1 mg (--/--) Route: oral Frequency: Daily Rate/Duration: -- / -- Timestamps Action Dose Route Other Information 12/23/19804 Given 1 mg oral Performed by: Jannie Gonsales RN Scanned Package: [id number] magnesium oxide (MAG-OX) tablet 400 mg [[id number]] Ordering Provider: LORI Wilson Status: Dispensed Ordered On: 12/21/19753 Start: 12/21/19899 Dose (Remaining/Total): 400 mg (--/--) Route: oral Frequency: Daily Rate/Duration: -- / -- Admin Instructions: 1 tablet = Magnesium oxide 400 mg = 241.3 mg elemental magnesium Timestamps Action Dose Route Other Information 12/23/19804 Given 400 mg oral Performed by: Jannie Gonsales RN Scanned Package: [id number] metoprolol tartrate (LOPRESSOR) immediate release tablet 25 mg [[id number]] Ordering Provider: LORI Wilson Status: Dispensed Ordered On: 12/21/19753 Start: 12/21/19899 Dose (Remaining/Total): 25 mg (--/--) Route: oral Frequency: 2 times daily Rate/Duration: -- / -- Timestamps Action Dose Route Other Information 12/23/19805 Given 25 mg oral Performed by: Jannie Gonsales RN Scanned Package: [id number] (PROTONIX) extended release tablet 40 mg [[id number]] Ordering Provider: LORI Wilson Status: Dispensed Ordered On: 12/21/19753 Start: 12/21/19899 Dose (Remaining/Total): 40 mg (--/--) Route: oral Frequency: Daily Rate/Duration: -- / -- Admin Instructions: Do not crush, chew, cut, dissolve, open or otherwise manipulate tablet/capsule. Timestamps Action Dose Route Other Information 12/23/19 08 Given 40 mg oral Performed by: Jannie Gonsales RN Scanned Package: [id number] polyethylene glycol (MIRALAX) packet 17 g [[id number]] Ordering Provider: LORI Wilson Status: Dispensed Ordered On: 12/21/19753 Start: 12/21/19899 Dose (Remaining/Total): 17 g (--/--) Route: oral Frequency: Daily Rate/Duration: -- / -- (No admins recorded for this medication) QUEtiapine (SEROquel) tablet 12.5 mg [[id number]] Ordering Provider: LORI Wilson Status: Dispensed Ordered On: 12/21/19753 Start: 12/21/19 2100 Dose (Remaining/Total): 12.5 mg (--/--) Route: oral Frequency: Nightly Rate/Duration: -- / -- Timestamps Action Dose Route Other Information 12/22/192026 Given 12.5 mg oral Performed by: Sada Jorge RN Scanned Package: [id number] thiamine (VITAMIN B1) tablet 100 mg [[id number]] Ordering Provider: LORI Wilson Status: Dispensed Ordered On: 12/21/19753 Start: 12/21/19 09 Dose (Remaining/Total): 100 mg (--/--) Route: oral Frequency: Daily Rate/Duration: -- / -- Timestamps Action Dose Route Other Information 12/23/19804 Given 100 mg oral Performed by: Jannie Gonsales RN Scanned Package: [id number] meropenem (MERREM) 1,000 mg/110 mL in sodium chloride 0.9% (premix) 1,000 mg [[id number]] Ordering Provider: LORI Wilson Status: Dispensed Ordered On: 12/21/19 1039 Start: 12/21/19 1600 Dose (Remaining/Total): 1,000 mg (--/--) Route: intravenous Frequency: Every 8 hours scheduled Rate/Duration: 220 mL/hr / 30 Minutes Line Med Link Info Comment Midline Catheter 12/05/19 0000 Right Upper arm 12/21/19 1618 by Sharonda Guadarrama RN -- Timestamps Action Dose / Rate / Duration Route Other Information 12/23/19 0805 New Bag 1,000 mg 220 mL/hr 30 Minutes intravenous Performed by: Jannie Gonsales RN levalbuterol (XOPENEX) 1.25 mg/3 mL nebulizer solution 1.25 mg [[id number]] Ordering Provider: LORI Wilson Status: Dispensed Ordered On: 12/21/191112 Start: 12/21/191114 Dose (Remaining/Total): 1.25 mg (--/--) Route: nebulization Frequency: Every 6 hours PRN (respiratory care faculty) Rate/Duration: -- / -- (No admins recorded for this medication) * [facility] Note - Mariaa Pereyra LCSW - 12/23/2019 8:41 AM CDT Patient Information: OT Eval and Treat Last 72 Hours OT Evaluation Row Name 12/22/19 0936 Chart Reviewed Yes -EW Session Type Evaluation -EW OT Received On 12/22/19 -EW Safe Environment Arm Band Checked;Call Light within Reach;Notified RN;Patient found in Supine;Overbed Table within Reach;Bed in Lowest Position with Wheels locked;Bed rails up per protocol;Bed Alarm placed and activated Pt returned to supine, needs within reach -EW Subjective Agreeable to Therapy -EW Additional Pertinent History HPI: 69 y.o. 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, alcohol abuse, a-fib, hld, htn, current smoker -EW Family/Caregiver Present No -EW Occupational Therapy-Patient Goal Pt agreeable to goals presented by OT student -EW Precautions Fall risk -EW Type of Home House -EW Home Layout Multi-level Pt reports it is a split-level home -EW # of Steps-Railed 7 Pt reports 7 steps to bedroom, HR on R -EW Home Access Stairs to enter with rails -EW Entrance Stairs-Rails Right -EW Entrance Stairs-Number of Steps 1 -EW Bathroom Shower/Tub Walk-in shower with threshold -EW Bathroom Toilet Standard -EW Bathroom Equipment Grab bars in shower/tub;Built-in shower seat -EW Bathroom Accessibility Accessible via walker -EW Home Mobility Equipment Wheeled walker -EW Additional Comments Pt reports use of WW at baseline -EW Level of [place] Independent with ADLs;Independent functional transfers;Independent with ambulation;Independent with homemaking with ambulation Mod I with WW -EW Lives With Spouse -EW Receives Help From Spouse/Significant other FT assist available -EW Driving No -EW Mode of Transportation Car;Driven by others Pt reports spouse drives -EW ADL Assistance Independent -EW Instrumental ADL (IADL) Assistance Independent -EW Medical Management -- Pt reports requires assist from with pill box -EW 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 -EW Leisure Hobbies-yes (Comment) Pt reports he enjoys cooking -EW Fall within the last 6 months comment Pt reports 1 fall d/t tripping over a visitor during a democrat at home -EW Prior Function Comments Pt reports use of WW and grab bars at baseline, assist required for medication management, Mod I with all other ADLs/IADLs -EW ADLS (WDL) X -EW Grooming: Where assessed Standing at sink -EW Grooming: Level of assistance Minimum Assist ADL: Mod I Bal: Min A -EW Grooming: Assistance with Safety Min A for safety d/t decreased balance -EW LE Dressing: Where assessed Edge of bed -EW LE Dressing: Level of assistance Minimum Assist ADL: Mod I Bal: min -EW LE Dressing: Assistance with Safety;Increased time to complete;Requires assistive device for steadying Min A for balance in sitting/standing -EW Toileting: Where assessed Toilet -EW Toileting: Level of assistance Minimum Assist -EW Toileting: Assistance with Increased time to complete Min A for balance -EW Toilet Transfer From Bed -EW Toilet Transfer Type To and from -EW Toilet Transfer to Standard toilet -EW Toilet Transfer Technique Ambulating -EW Toilet Transfer: Equipment Wheeled walker -EW Toilet Transfers Minimal assistance -EW Toilet Transfers Comments Min A required for balance -EW Pain Assessment No/denies pain -EW Endurance Tolerates 10 - 20 min activity with multiple rests -EW Activity Tolerance Comments Timmy: pretty hard -EW Current Vision Does not wear glasses -EW Arousal/Alertness Alert;Appropriate responses to stimuli -EW Attention Span Attends with cues to redirect -EW Memory Decreased short term memory Recalled 3/5 components of name/address in SBT -EW Current communication Appears Intact -EW Orientation Oriented X4 (person, place, time, situation) -EW Following Commands Follows one step commands without difficulty -EW Safety Judgment Decreased awareness of need for safety -EW Awareness of Errors Assistance required to identify errors made -EW Insight Decreased awareness of deficits -EW Problem Solving Assistance required to identify errors made -EW Compliance/Behavior Easy to engage -EW Perseveration Not present -EW Light Touch WFL BUE -EW Numbness/Tingling No BUE -EW Serial Opposition -- Increased time required for accuracy -EW Hand Preference Left -EW Balance Yes -EW Static Sitting-Balance Support Bilateral upper extremity supported;Feet supported -EW Static Sitting-Sitting Surface Bed -EW Static Sitting-Level of Assistance Distant supervision -EW Static Sitting-Comment/# of Minutes For safety -EW Dynamic Sitting-Balance Support Unilateral upper extremity supported;Feet supported -EW Dynamic Sitting-Balance Lateral lean;Reaching for objects -EW Dynamic Sitting-Sitting Surface Bed -EW Dynamic Sitting-Level of Assistance Minimum assistance -EW Dynamic Sitting-Comments Min A for balance d/t lateral lean to R -EW Static Standing-Balance Support Bilateral upper extremity supported WW -EW Static Standing-Standing Surface Floor -EW Static Standing-Level of Assistance Contact guard -EW Static Standing-Comment/# of Minutes For safety/balance -EW Dynamic Standing-Balance Support Bilateral upper extremity supported;Unilateral upper extremity supported WW -EW Dynamic Standing-Balance Lateral lean;Reaching for objects -EW Dynamic Standing-Standing Surface Floor -EW Dynamic Standing-Level of Assistance Minimum assistance -EW Dynamic Standing-Comments Min A required d/t decreased balance -EW Bed Mobility Yes -EW Bed Mobility From 1 Supine -EW Bed Mobility Type 1 To -EW Bed Mobility to 1 Edge of bed -EW Level of Assistance 1 Minimum Assist -EW Bed Mobility Comments 1 Min A for trunk elevation -EW Bed Mobility From 2 Edge of bed -EW Bed Mobility Type 2 To -EW Bed Mobility to 2 Supine -EW Level of Assistance 2 Standby Assist -EW Bed Mobility Comments 2 For safety -EW Transfer Yes Gait belt not donned d/t drain placement -EW Transfer From 1 Sit -EW Transfer Type 1 To and from -EW Transfer to 1 Stand -EW Technique 1 Sit to stand;Stand to sit -EW Transfer Device 1 Wheeled walker -EW Transfer Level of Assistance 1 Minimum Assist -EW Trials/Comments 1 Min A for force production, VCs for safe hand placement with WW -EW Trials/Comments 2 Pt required Min A during fxl mobility with WW for safety/balance, VCs for safe use of WW -EW RUE Assessment WFL MMT NT -EW LUE Assessment WFL MMT NT -EW Comments Pt limited by decreased balance and safety awareness this date. Pt required Min A for safety/balance during ADLs and fxl mobility with WW. -EW Problem List Decreased endurance;Decreased safe judgment during ADL;Decreased balance;Decreased functional mobility;Decreased ADL independence;Decreased IADL independence -EW Barriers to Discharge Current Mobility Status;Home environment challenged;Decreased safety awareness -EW Plan Plan of care initiated;If this is the last note, consider this the discharge summary -EW OT Recommendation Group Home Facility -EW OT Recommendation/Plan Comments If pt declines placement, home with 24 hr supervision and HHOT for safety evaluation -EW OT Frequency 3-5x/wk -EW Treatment/Interventions ADL/IADL retraining;Balance Training;Cognitive retraining;Endurance training;Functional activity;Functional mobility training;Functional transfer training -EW OT - Next Appointment 12/24/19 -EW OT Evaluation Complete Yes -EW User Perdomo (r) = Recorded By, (t) = Taken By, (c) = Cosigned By Initials Name Effective Dates EW Taryn Erazo 10/03/19 - OT Treatment No documentation. OT Notes (Notes from 12/21/19 through 12/23/19) 12/22/2019 11:44 AM Progress Notes signed by Miladys Victor OT , OT Eval and Treat Last Documented OT ASSESSMENT FLOWSHEET LAST DOCUMENTED (most recent) OT Evaluation - 12/23/19 0800 Pain Assessment Pain Assessment No/denies pain OT TREATMENT FLOWSHEET LAST DOCUMENTED (most recent) OT Treatment - 12/23/19 0800 Pain Assessment Pain Assessment No/denies pain OT Notes (Notes from 12/21/19 through 12/23/19) 12/22/2019 11:44 AM Progress Notes signed by Miladys Victor, OT , PT Eval and Treat Last 72 Hours PT Evaluation Row Name 12/21/19 0753 Session Type Evaluation -FJ Safe Environment Arm Band Checked;Bed Alarm placed and activated;Call Light within Reach;Session Completed Bedside;Patient found in Supine pt left resting in bed -FJ Subjective Agreeable to Therapy -FJ Physical Therapy-Patient Goal no goal provided -FJ Precautions Fall risk -FJ Type of Home House -FJ Home Layout Multi-level -FJ # of Steps-Railed 7 -FJ Home Access Level entry -FJ Home Mobility Equipment Wheeled walker -FJ Level of [place] Independent with ambulation mod I -FJ Lives With Spouse -FJ Receives Help From Spouse/Significant other as needed -FJ Fall within the last 6 months comment 2 recent falls. pt reprots tripping over a visitor during a home democrat. -FJ Prior Function Comments Pt reports use of walker for home ambulation, along with grab bars as needed. -FJ Activity Tolerance Comments RPE: somewhat hard -FJ Pain Assessment No/denies pain -FJ Arousal/Alertness Alert -FJ Orientation Oriented X4 (person, place, time, situation) -FJ Following Commands Follows multistep commands with repetition -FJ Compliance/Behavior Easy to engage -FJ Light Touch WFL BLE distal to knees -FJ Numbness/Tingling No -FJ Sensation Comments (-) open wounds/edema BLE distal to knees -FJ Balance Yes -FJ Static Sitting-Balance Support Feet supported;Bilateral upper extremity supported -FJ Static Sitting-Sitting Surface Bed -FJ Static Sitting-Level of Assistance Distant supervision -FJ Static Standing-Balance Support Bilateral upper extremity supported -FJ Static Standing-Standing Surface Floor -FJ Static Standing-Level of Assistance Contact guard -FJ Static Standing-Comment/# of Minutes with WW, therapist assist provided to ensure safe/stable standing balance -FJ Bed Mobility From 1 Supine -FJ Bed Mobility Type 1 To -FJ Bed Mobility to 1 Edge of bed -FJ Level of Assistance 1 Minimum Assist -FJ Bed Mobility Comments 1 HOB flat, therapist assist to elevate pts trunk, no assist required to return to supine -FJ Transfer From 1 Bed -FJ Technique 1 Sit to stand;Stand to sit -FJ Transfer Device 1 Wheeled walker -FJ Transfer Level of Assistance 1 Minimum Assist -FJ Trials/Comments 1 therapist assist requried for force production, cues provided for safe hand placement -FJ Distance (ft) 1 20 -FJ Surface 1 Level tile -FJ Device 1 Wheeled walker -FJ Assistance 1 Minimum Assist -FJ Gait: Requires assist with 1 Maintaining balance -FJ Gait: Requires verbal cues to 1 Use assistive device safely;Prevent bumping into environmental barriers (hernandez/furniture);Utilize appropriate gait sequencing -FJ Quality of Gait 1 wide CHERRY, mild path deviations, lateral sway -FJ Ambulation Comments 1 pt declined further ambulation -FJ RLE Assessment WFL -FJ LLE Assessment WFL -FJ Equipment Use Comments gait belt donned -FJ Other PT Comments (S) Of note pt reports his would like for him to DC to a facility for rehabilitation. Pt states that he believes she is most concerned with his ability to negotiate the stairs within their home. At this time pt is an appropriate candidate for SNF. -FJ How much difficulty does the patient have: Turning over in bed 4 -FJ How much difficulty does the patient currently have: Sitting down and standing up from a chair witharms? 3 -FJ How much difficulty does the patient have: Moving from lying on back to sitting on the side of the bed? 3 -FJ How much difficulty does the patient have: Moving to and from a bed to a chair including wheelchair? 3 -FJ How much help does the patient currently need: Walk in hospital room? 3 -FJ How much help from another person does the patient currently need: Climbing 3-5 steps with a railing? 2 -FJ Total 6 Click Score (range 6-24) 18 -FJ Score Interpretation 41.05 -FJ Problem List Gait deviations;Decreased strength;Impaired balance;Decreased mobility;Decreased ADLs -FJ Problem List Comments Pt is a 69 y.o. male with cc abdominal wall abscess; s/p drain placement 12/18RUQ presenting with deficits in bed mobility, transfers, ambulation, and stair climbing due to the primary impairments noted above. These deficits will prevent full participation in home and community mobility. -FJ Barriers to Discharge Current Mobility Status;Home environment challenged -FJ Plan Plan of care initiated;If this is the last note, consider this the discharge summary -FJ PT Recommendation/Plan Group Home Facility -FJ PT Recommendation/Plan Comments pending gait/stair assessment -FJ PT Frequency 3-5x/wk -FJ Treatment/Interventions Balance Training;Bed mobility;Gait training;Strengthening;Therapeutic activity;Therapeutic exercise;Transfer training;Stair training - PT Evaluation Complete Yes - User Perdomo (r) = Recorded By, (t) = Taken By, (c) = Cosigned By Initials Name Effective Dates JOE Elis Coley, PT 05/08/19 - PT TREATMENT (last 168 hours) PT Treatment No documentation. PT Notes (Notes from 12/21/19 through 12/23/19) No notes of this type exist for this encounter. , PT Eval and Treat Last Documented OT ASSESSMENT FLOWSHEET LAST DOCUMENTED (most recent) PT Evaluation - 12/23/19 0800 Pain Assessment Pain Assessment No/denies pain PT TREATMENT (most recent) PT Treatment - 12/23/19 0800 Pain Assessment Pain Assessment No/denies pain PT Notes (Notes from 12/21/19 through 12/23/19) No notes of this type exist for this encounter. * [facility] Note - Mariaa Pereyra LCSW - 12/23/2019 8:40 AM CDT Images from the original note were not included. Patient Information: Comprehensive Nursing Documentation Attending Provider: Eugene Oates MD Allergies: Penicillins Isolation: Contact Infection: MDR gram neg/ESBL (12/21/19) Code Status: FULL Ht: 180.3 cm (5' 11 ) Wt: 76.5 kg (168 lb 9.6 oz) Admission Cmt: None Principal Problem: Cholecystitis [K81.9] Intake/Output 12/20/19 07 - 12/21/19 0659 12/21/19 07 - 12/22/19 0659 12/22/19 07 - 12/23/19 0659 12/23/19 07 - 12/24/19 0659 Total Total 7480-5550 0243-1261 4701-0414 Total 3633-0354 5088-9100 5020-9875 Total Intake (ml) -- 0 -- -- 30 30 -- -- -- -- Output (ml) 32 10 310 300 145 755 400 -- -- 400 Net (ml) -32 -10 -310 -300 -115 -725 -400 -- -- -400 Last Weight 78.4 kg (172 lb 12.8 oz) 75.8 kg (167 lb) -- -- 76.5 kg (168 lb 9.6 oz) -- -- -- -- -- Patient Lines/Drains/Airways Status Active Airway / Central venous catheter / Drain / Epidural cathether / Intraosseous line / Peripherally inserted central catheter / Peripheral intravenous line / Arterial line Name: Placement date: Placement time: Site: Days: Closed/Suction/Open Drain 1 Right RUQ Bulb 10 Fr. 12/19/19 1202 RUQ 3 Midline Catheter 12/05/19 0000 Right Upper arm 12/05/19 0000 -- 18 Patient Lines/Drains/Airways Status Active Wound / Pressure ulcer / Johnson / Negative Pressure Wound Wound 12/19/19 Abscess Lower;Right Abdomen swollen, red, draining serosang, MD packed and dressed this AM Date First Assessed 12/19/19 Site: Abdomen Time First Assessed 914 Days: 3 Present on Hospital Admission: Yes Wound Type: Abscess Location Orientation: Lower;Right Wound Description (Comments): swollen, red, draining serosang, MDpacked and dressed this AM Assessments 12/22/19202912/21/192199 Wound Status Evolving Evolving Site Assessment ELIANA ELIANA Valentine-wound Assessment ELIANA ELIANA Margins ELIANA ELIANA Closure Unable to assess Unable to assess Drainage Amount Scant Scant Drainage Description ELIANA ELIANA Drainage Odor No odor No odor Dressing Status Clean/Dry/Intact Clean/Dry/Intact Dressing Gauze Gauze Pressure Ulcer/Pressure Injury 12/19/19 Right Buttocks stg 2 blanca size, pink, single thickness, allevyn Date First Assessed 12/19/19 Site: Buttocks Time First Assessed 914 Days: 3 Present on Hospital Admission: Yes Present on Transfer to Nursing Division: Yes Location Orientation: Right Wound Description (Comments): stg 2 blanca size, pink, single thickness, allevyn Assessments 12/22/19202912/22/19 1100 12/21/192199 Pressure Ulcer Status Evolving Evolving Evolving Description Non-intact, red/pink wound bed (c/w Stage 2, open, no depth, no slough) Non-intact, red/pink wound bed (c/w Stage 2, open, no depth, no slough) Non-intact, shallow ulcer (c/w Stage 2, open, no depth, no slough) Staging Stage 2 Stage 2 Stage 2 Valentine-wound Assessment ELIANA Dry;Intact Dry;Intact Margins ELIANA Unattached edges Unattached edges Drainage Amount ELIANA None None Drainage Description ELIANA -- ELIANA Drainage Odor -- -- No odor Dressing Status Clean/Dry/Intact Changed;Clean/Dry/Intact Intact Dressing/Intervention Foam (Comment-type) Foam (Comment-type) Foam (Comment-type) Pressure Ulcer/Pressure Injury 12/19/19 Left Buttocks sm open area, stg 2, pink, allevyn Date First Assessed 12/19/19 Site: Buttocks Time First Assessed 914 Days: 3 Present on Hospital Admission: Yes Present on Transfer to Nursing Division: Yes Location Orientation: Left Wound Description (Comments): sm open area, stg 2, pink, allevyn Assessments 12/22/19202912/22/1982412/21/192199 Pressure Ulcer Status Evolving Evolving Evolving Description Non-intact, red/pink wound bed (c/w Stage 2, open, no depth, no slough) Non-intact, shallow ulcer (c/w Stage 2, open, no depth, no slough) Non- intact, shallow ulcer (c/w Stage 2, open, nodepth, no slough) Staging Stage 2 Stage 2 Stage 2 Valentine-wound Assessment ELIANA Dry;Intact Dry;Intact Margins ELIANA Unattached edges Unattached edges Drainage Amount ELIANA None None Drainage Description ELIANA -- ELIANA Drainage Odor -- -- No odor Dressing Status Clean/Dry/Intact Intact Intact Dressing/Intervention Foam (Comment-type) Foam (Comment-type) Foam (Comment-type) Hardin Fall Risk Most Recent Value Auto Low/High - if selected proceed to interventions High risk-visit due to a fall or hx of > 1 fall in past 3 months ............filed at 12/19/2019 1400 History of Falling 0 ............filed at 12/22/20192029 Secondary Diagnosis 15 ............filed at 12/22/20192029 Ambulatory Aids 15 ............filed at 12/22/20192029 Intravenous Therapy/Heparin/Saline Lock 20 ............filed at 12/22/20192029 Gait/Transferring 10 ............filed at 12/22/20192029 Mental Status 0 ............filed at 12/22/20192029 Hardin Fall Risk Score 60 ............filed at 12/22/20192029 Vital Signs 12/21 0700 - 12/22 0659 12/22 07 - 12/22 0840 Most Recent Temp (??C) 36.6 - 37.1 36.3 36.3 (97.3) Pulse 62 - 118 109 109 Resp 18 16 16 SpO2 (%) 95 - 99 96 96 BP 131/95 - 157/100 147/103 147/103 MAP (mmHg) 116 116 Default Flowsheet Data (most recent) Endurance Tests No documentation. Default Flowsheet Data (most recent) Balance Tests - 12/22/19 0936 Tinetti Sitting Balance 0 Arises 0 Attempts to Arise 0 Immediate Standing Balance (First 5 Seconds) 0 Standing Balance 0 Nudged 0 NT Eyes Closed 0 NT Turned 360 Degrees: Steadiness 0 Turned 360 Degrees: Continuity of Steps 0 Sitting Down 1 Balance Score 1 Nursing Nutrition Feeding Level of Assistance 12/21 2029 Able to feed self 12/20 2199 Able to feed self Nursing Mobility Activity 12/22 0816 Resting in bed 12/22 0501 Sleeping 12/22 0318 Sleeping 12/22 0200 Resting in bed 12/22 0043 Resting in bed 12/21 2255 Sleeping 12/21 2130 Sleeping 12/21 2030 Resting in bed 12/21 0825 Resting in bed 12/21 0559 Sleeping 12/21 0356 Sleeping 12/21 0201 Sleeping 12/21 0044 Sleeping 12/21 0010 Sleeping 12/20 2200 Resting in bed 12/20 1535 Resting in bed 12/20 1205 Refused by patient;Turn 12/20 1138 Resting in bed 12/20 0753 Refused by patient 12/20 0736 Resting in bed 12/20 0534 Resting in bed 12/20 0145 Sleeping 12/19 2140 Resting in bed 12/19 1527 Resting in bed 12/19 1144 Resting in bed 12/19 1019 Resting in bed 12/19 0915 Resting in bed Level of Assistance 12/21 2029 Minimal assist, patient does 75% or more 12/21 0825 Independent 12/20 2200 Moderate assist, patient does 50-74% 12/20 1535 Independent 12/19 2140 Minimal assist, patient does 75% or more 12/19 1144 Minimal assist, patient does 75% or more Assistive Device 12/21 2030 None 12/20 2200 None 12/19 2140 None 12/19 1144 None Repositioned 12/21 2030 Turns self 12/21 1200 Turns self 12/20 2200 Turns self 12/20 1535 Left side 12/20 1205 Left side 12/20 1138 Supine 12/20 0753 Right side 12/20 0736 Supine 12/19 2140 Turns self 12/19 1527 Turns self 12/19 1144 Turns self 12/19 1019 Turns self Positioning Frequency 12/22 0200 Able to turn self 12/21 2030 Able to turn self 12/21 1200 Able to turn self 12/20 2200 Able to turn self 12/20 1535 Able to turn self 12/20 1205 Every 2 hours 12/20 1138 Able to turn self 12/20 0736 Able to turn self 12/19 2140 Able to turn self 12/19 1527 Able to turn self 12/19 1144 Able to turn self 12/19 1019 Able to turn self Head of Bed Elevated 12/22 0200 Self regulated 12/21 2030 Self regulated 12/21 1200 Self regulated 12/20 2200 Self regulated 12/20 1535 Self regulated 12/20 1138 Self regulated 12/20 0736 Self regulated 12/19 2140 Self regulated 12/19 1527 Self regulated 12/19 1144 Self regulated Range of Motion 12/21 2030 Active;All extremities 12/20 220 Active;All extremities 12/19 2140 Active;All extremities 12/19 1527 Active;All extremities 12/19 1144 Active;All extremities Type of Device 12/20 2199 Mechanical compression 12/20 075 Mechanical compression 12/19 214 Mechanical compression 12/19 1019 Mechanical compression Mechanical Compression Site 12/20 2199 Bilateral 12/20 075 Bilateral 12/20 2139 Bilateral 12/19 1019 Bilateral Mechanical Compression Type 12/20 2200 IPC/SCD 12/20 075 IPC/SCD 12/19 214 IPC/SCD 12/19 1019 IPC/SCD Mechanical Compression Status 12/20 2200 Off 12/20 0753 Off 12/19 2140 Off 12/19 1019 Off , Wound Info Only Patient Lines/Drains/Airways Status Active Wound / Pressure ulcer / Johnson / Negative Pressure Wound Wound 12/19/19 Abscess Lower;Right Abdomen swollen, red, draining serosang, MD packed and dressed this AM Date First Assessed 12/19/19 Site: Abdomen Time First Assessed 914 Days: 3 Present on Hospital Admission: Yes Wound Type: Abscess Location Orientation: Lower;Right Wound Description (Comments): swollen, red, draining serosang, MDpacked and dressed this AM Assessments 12/22/19202912/21/192199 Wound Status Evolving Evolving Site Assessment ELIANA ELIANA Valentine-wound Assessment ELIANA ELIANA Margins ELIANA ELIANA Closure Unable to assess Unable to assess Drainage Amount Scant Scant Drainage Description ELIANA ELIANA Drainage Odor No odor No odor Dressing Status Clean/Dry/Intact Clean/Dry/Intact Dressing Gauze Gauze Pressure Ulcer/Pressure Injury 12/19/19 Right Buttocks stg 2 blanca size, pink, single thickness, allevyn Date First Assessed 12/19/19 Site: Buttocks Time First Assessed 914 Days: 3 Present on Hospital Admission: Yes Present on Transfer to Nursing Division: Yes Location Orientation: Right Wound Description (Comments): stg 2 blanca size, pink, single thickness, allevyn Assessments 12/22/19202912/22/19 1100 12/21/192199 Pressure Ulcer Status Evolving Evolving Evolving Description Non-intact, red/pink wound bed (c/w Stage 2, open, no depth, no slough) Non-intact, red/pink wound bed (c/w Stage 2, open, no depth, no slough) Non-intact, shallow ulcer (c/w Stage 2, open, no depth, no slough) Staging Stage 2 Stage 2 Stage 2 Valentine-wound Assessment ELIANA Dry;Intact Dry;Intact Margins ELIANA Unattached edges Unattached edges Drainage Amount ELIANA None None Drainage Description ELIANA -- ELIANA Drainage Odor -- -- No odor Dressing Status Clean/Dry/Intact Changed;Clean/Dry/Intact Intact Dressing/Intervention Foam (Comment-type) Foam (Comment-type) Foam (Comment-type) Pressure Ulcer/Pressure Injury 12/19/19 Left Buttocks sm open area, stg 2, pink, allevyn Date First Assessed 12/19/19 Site: Buttocks Time First Assessed 914 Days: 3 Present on Hospital Admission: Yes Present on Transfer to Nursing Division: Yes Location Orientation: Left Wound Description (Comments): sm open area, stg 2, pink, allevyn Assessments 12/22/19202912/22/19 0825 12/21/192199 Pressure Ulcer Status Evolving Evolving Evolving Description Non-intact, red/pink wound bed (c/w Stage 2, open, no depth, no slough) Non-intact, shallow ulcer (c/w Stage 2, open, no depth, no slough) Non- intact, shallow ulcer (c/w Stage 2, open, nodepth, no slough) Staging Stage 2 Stage 2 Stage 2 Valentine-wound Assessment ELIANA Dry;Intact Dry;Intact Margins ELIANA Unattached edges Unattached edges Drainage Amount ELIANA None None Drainage Description ELIANA -- ELIANA Drainage Odor -- -- No odor Dressing Status Clean/Dry/Intact Intact Intact Dressing/Intervention Foam (Comment-type) Foam (Comment-type) Foam (Comment-type) , Vitals Info Only Vital Signs 12/21 07 - 12/22 0659 12/22 07 - 12/22 0840 Most Recent Temp (??C) 36.6 - 37.1 36.3 36.3 (97.3) Pulse 62 - 118 109 109 Resp 18 16 16 SpO2 (%) 95 - 99 96 96 BP 131/95 - 157/100 147/103 147/103 MAP (mmHg) 116 116 , Oxygen Info Only Default Flowsheet Data (most recent) Endurance Tests No documentation. Default Flowsheet Data (last 48 hours) Oxygen Row Name 12/23/19 0815 12/23/19 0405 12/22/19 2320 12/22/19202912/22/19 194 Oxygen Therapy/Pulse Ox O2 Therapy -- None (Room air) None (Room air) None (Room air) None (Room air) SpO2 96 % 96 % 99 % -- 98 % Row Name 12/22/19 1700 12/22/19 1015 12/22/19 0936 12/22/19 0900 12/22/19 0431 Oxygen Therapy/Pulse Ox O2 Therapy None (Room air) -- -- None (Room air) None (Room air) SpO2 97 % 95 % 95 % 98 % 99 % Row Name 12/22/19 0021 12/21/19 2200 12/21/19 1946 12/21/19 1535 12/21/19 1138 Oxygen Therapy/Pulse Ox O2 Therapy None (Room air) None (Room air) None (Room air) None (Room air) None (Room air) SpO2 98 % -- 98 % 97 % 98 % * Plan of Care - Sada Jorge RN - 12/22/2019 8:57 PM CDT Problem: Lack of Knowledge: Goal: Ability to state ways to decrease the risk of falls will improve Outcome: Progressing Problem: Safety: Goal: Will remain free from falls Outcome: Progressing Goal: Will remain free from injury from falls Outcome: Progressing Goal: Will remain free from falls and injury in home environment Outcome: Progressing Problem: Lack of Knowledge: Goal: Ability to develop a pain control plan will improve Outcome: Progressing Goal: Ability to identify pain intensity on a pain scale and rate it consistently will improve Outcome: Progressing Goal: Ability to notify healthcare provider of pain before it becomes unmanageable or unbearable will improve Outcome: Progressing Problem: Medication: Goal: Satisfaction with pain management regimen will improve Outcome: Progressing Problem: Sensory: Goal: Ability to identify factors that increase the pain will improve Outcome: Progressing Goal: Pain level will decrease Outcome: Progressing Problem: Activity: Goal: Risk for activity intolerance will decrease Outcome: Progressing Problem: Lack of Knowledge: Goal: Knowledge of diagnostic tests will improve Outcome: Progressing Goal: Knowledge of disease or condition will improve Outcome: Progressing Goal: Knowledge of safety precautions will improve Outcome: Progressing Goal: Knowledge of the prescribed therapeutic regimen will improve Outcome: Progressing Problem: Health Behavior: Goal: Ability to state signs and symptoms to report to health care provider will improve Outcome: Progressing Problem: Physical Regulation: Goal: Ability to maintain clinical measurements within normal limits will improve Outcome: Progressing Problem: Infection Risk: Goal: Will remain free from infection Outcome: Progressing Problem: Safety: Goal: Ability to remain free from injury will improve Outcome: Progressing Goal: Will remain free from falls Outcome: Progressing Problem: Self-Care: Goal: Ability to participate in self-care as condition permits will improve Outcome: Progressing Problem: Sensory: Goal: Pain level will decrease Outcome: Progressing Goal: Ability to develop a pain control plan will improve Outcome: Progressing Problem: Skin Integrity: Goal: Risk for impaired skin integrity will decrease Outcome: Progressing Problem: Tissue Perfusion: Goal: Risk factors for ineffective tissue perfusion will decrease Outcome: Progressing Problem: Activity: Goal: Mobility will improve Outcome: Progressing Problem: Lack of Knowledge: Goal: Understanding of ways to prevent future skin breakdown will improve Outcome: Progressing Problem: Skin Integrity: Goal: Risk for impaired skin integrity will decrease Outcome: Progressing Goal: Ability to demonstrate warm and dry skin will improve Outcome: Progressing Goal: Circulation will improve to fullest extent possible Outcome: Progressing Problem: Health Behavior: Goal: Understanding of discharge needs will improve Outcome: Progressing Goals: Clinical Goals for the Shift: keep clean and dry, promote rest Summary: * Plan of Care - Mariaa Pereyra LCSW - 12/22/2019 3:50 PM CDT loft worker apprentice reviewed allscripts and [facility] does not accept patients insurance. loft worker apprentice called [facility] and spoke with Vito in admissions he had to confirm they can administer his IV antibiotic. While waiting for a response geriatric social worker called and left another message requesting an answer regarding acceptance or denial. loft worker apprentice spoke with patients Raine [phone] about other facility options. She is agreeable to [facility], [facility], and [facility]. [facility] referrals sent. [facility] does not accept patients insurance. loft worker apprentice will continue to follow for discharge planning. Mariaa Pereyra LCSW Social Work [phone] * Plan of Care - Taryn Erazo - 12/22/2019 2:11 PM CDT Problem: Toileting Goal: STG - Patient will complete toileting tasks with Description: spv Outcome: Progressing Cosigned by Miladys Victor OT at 12/22/2019 3:17 PM CDT * Plan of Care - Jannie Gonsales RN - 12/22/2019 12:23 PM CDT Goals: Clinical Goals for the Shift: monitor VS, keep clean and dry Summary: Problem: Lack of Knowledge: Goal: Ability to state ways to decrease the risk of falls will improve Outcome: Progressing Problem: Safety: Goal: Will remain free from falls Outcome: Progressing Goal: Will remain free from injury from falls Outcome: Progressing Goal: Will remain free from falls and injury in home environment Outcome: Progressing Problem: Lack of Knowledge: Goal: Ability to develop a pain control plan will improve Outcome: Progressing Goal: Ability to identify pain intensity on a pain scale and rate it consistently will improve Outcome: Progressing Goal: Ability to notify healthcare provider of pain before it becomes unmanageable or unbearable will improve Outcome: Progressing Problem: Medication: Goal: Satisfaction with pain management regimen will improve Outcome: Progressing Problem: Sensory: Goal: Ability to identify factors that increase the pain will improve Outcome: Progressing Goal: Pain level will decrease Outcome: Progressing Problem: Activity: Goal: Risk for activity intolerance will decrease Outcome: Progressing Problem: Lack of Knowledge: Goal: Knowledge of diagnostic tests will improve Outcome: Progressing Goal: Knowledge of disease or condition will improve Outcome: Progressing Goal: Knowledge of safety precautions will improve Outcome: Progressing Goal: Knowledge of the prescribed therapeutic regimen will improve Outcome: Progressing Problem: Health Behavior: Goal: Ability to state signs and symptoms to report to health care provider will improve Outcome: Progressing Problem: Physical Regulation: Goal: Ability to maintain clinical measurements within normal limits will improve Outcome: Progressing Problem: Infection Risk: Goal: Will remain free from infection Outcome: Progressing Problem: Safety: Goal: Ability to remain free from injury will improve Outcome: Progressing Goal: Will remain free from falls Outcome: Progressing Problem: Self-Care: Goal: Ability to participate in self-care as condition permits will improve Outcome: Progressing Problem: Sensory: Goal: Pain level will decrease Outcome: Progressing Goal: Ability to develop a pain control plan will improve Outcome: Progressing Problem: Skin Integrity: Goal: Risk for impaired skin integrity will decrease Outcome: Progressing Problem: Tissue Perfusion: Goal: Risk factors for ineffective tissue perfusion will decrease Outcome: Progressing Problem: Activity: Goal: Mobility will improve Outcome: Progressing Problem: Lack of Knowledge: Goal: Understanding of ways to prevent future skin breakdown will improve Outcome: Progressing Problem: Skin Integrity: Goal: Risk for impaired skin integrity will decrease Outcome: Progressing Goal: Ability to demonstrate warm and dry skin will improve Outcome: Progressing Goal: Circulation will improve to fullest extent possible Outcome: Progressing Problem: Health Behavior: Goal: Understanding of discharge needs will improve Outcome: Progressing * Plan of Care - Sada Jorge RN - 12/21/2019 11:55 PM CDT Problem: Lack of Knowledge: Goal: Ability to state ways to decrease the risk of falls will improve Outcome: Progressing Problem: Safety: Goal: Will remain free from falls Outcome: Progressing Goal: Will remain free from injury from falls Outcome: Progressing Goal: Will remain free from falls and injury in home environment Outcome: Progressing Problem: Lack of Knowledge: Goal: Ability to develop a pain control plan will improve Outcome: Progressing Goal: Ability to identify pain intensity on a pain scale and rate it consistently will improve Outcome: Progressing Goal: Ability to notify healthcare provider of pain before it becomes unmanageable or unbearable will improve Outcome: Progressing Problem: Medication: Goal: Satisfaction with pain management regimen will improve Outcome: Progressing Problem: Sensory: Goal: Ability to identify factors that increase the pain will improve Outcome: Progressing Goal: Pain level will decrease Outcome: Progressing Problem: Activity: Goal: Risk for activity intolerance will decrease Outcome: Progressing Problem: Lack of Knowledge: Goal: Knowledge of diagnostic tests will improve Outcome: Progressing Goal: Knowledge of disease or condition will improve Outcome: Progressing Goal: Knowledge of safety precautions will improve Outcome: Progressing Goal: Knowledge of the prescribed therapeutic regimen will improve Outcome: Progressing Problem: Health Behavior: Goal: Ability to state signs and symptoms to report to health care provider will improve Outcome: Progressing Problem: Physical Regulation: Goal: Ability to maintain clinical measurements within normal limits will improve Outcome: Progressing Problem: Infection Risk: Goal: Will remain free from infection Outcome: Progressing Problem: Safety: Goal: Ability to remain free from injury will improve Outcome: Progressing Goal: Will remain free from falls Outcome: Progressing Problem: Self-Care: Goal: Ability to participate in self-care as condition permits will improve Outcome: Progressing Problem: Sensory: Goal: Pain level will decrease Outcome: Progressing Goal: Ability to develop a pain control plan will improve Outcome: Progressing Problem: Skin Integrity: Goal: Risk for impaired skin integrity will decrease Outcome: Progressing Problem: Tissue Perfusion: Goal: Risk factors for ineffective tissue perfusion will decrease Outcome: Progressing Problem: Activity: Goal: Mobility will improve Outcome: Progressing Problem: Lack of Knowledge: Goal: Understanding of ways to prevent future skin breakdown will improve Outcome: Progressing Problem: Skin Integrity: Goal: Risk for impaired skin integrity will decrease Outcome: Progressing Goal: Ability to demonstrate warm and dry skin will improve Outcome: Progressing Goal: Circulation will improve to fullest extent possible Outcome: Progressing Problem: Health Behavior: Goal: Understanding of discharge needs will improve Outcome: Progressing Goals: Clinical Goals for the Shift: monitor VS, keep clean and dry Summary: * Plan of Care - Mariaa Pereyra LCSW - 12/21/2019 3:07 PM CDT loft worker apprentice called and spoke with patients Raine [phone] introduced self and role. Discussed that patient will need SNF at time of discharge. She shared patient has been in and out of [facility] and [facility]. Raine mentioned some concerns about his current facility. loft worker apprentice discussed facility locations and options. Raine plans to look up reviews and call family. Received a call back and she indicated that she would like a referral sent to [facility] and [facility]. She called [facility] and expressed her concerns.She was told that patient would be cared for and all of her concerns were addressed. [facility] referralssent. Once there is an accepting SNF geriatric social worker will work on getting insurance authorization through [facility]. Mariaa Pereyra LCSW Social Work [phone] * Plan of Care - Little Verdugo RN - 12/21/2019 11:45 AM CDT Per DCAM: patient currently has a midline cath for infusion needs. They plan to discharge patient with 10 days of david (final dose on the ). SW will evaluate if the patient has any available dates for SNF and work with patient and family for a desirable outcome. CM will continue to follow and assist as able. CM will continue to follow for needs Jovanna Verdugo CM [phone] For evening case management needs please contact the sales planning manager at [phone]. For weekend and holiday needs please call [phone]. * [facility] Note - Mariaa Pereyra, PRODUCTION LINE MECHANIC - 12/21/2019 11:34 AM CDT Patient Information: OT Eval and Treat Last 72 Hours OT Evaluation No documentation. OT Treatment No documentation. OT Notes (Notes from 12/19/19 through 12/21/19) No notes of this type exist for this encounter. , OT Eval and Treat Last Documented OT ASSESSMENT FLOWSHEET LAST DOCUMENTED (most recent) OT Evaluation - 12/21/19 0753 General Safe Environment Arm Band Checked;Bed Alarm placed and activated;Call Light within Reach;Session Completed Bedside;Patient found in Supine Precautions Precautions Fall risk Home Living Type of Home House Home Layout Multi-level # of Steps-Railed 7 Home Access Level entry Home Mobility Equipment Wheeled walker Prior Function Level of [place] Independent with ambulation mod I Lives With Spouse Receives Help From Spouse/Significant other as needed Fall within the last 6 months comment 2 recent falls. pt reprots tripping over a visitor during a home democrat. Prior Function Comments Pt reports use of walker for home ambulation, along with grab bars as needed. Pain Assessment Pain Assessment No/denies pain Cognition Arousal/Alertness Alert Orientation Oriented X4 (person, place, time, situation) Sensation Light Touch WFL BLE distal to knees Numbness/Tingling No OT TREATMENT FLOWSHEET LAST DOCUMENTED (most recent) OT Treatment - 12/21/19 0753 General Safe Environment Arm Band Checked;Bed Alarm placed and activated;Call Light within Reach;Session Completed Bedside;Patient found in Supine Precautions Precautions Fall risk Pain Assessment Pain Assessment No/denies pain Cognition Arousal/Alertness Alert Orientation Oriented X4 (person, place, time, situation) OT Notes (Notes from 12/19/19 through 12/21/19) No notes of this type exist for this encounter. , PT Eval and Treat Last 72 Hours PT Evaluation Row Name 12/21/19 0753 Safe Environment Arm Band Checked;Bed Alarm placed and activated;Call Light within Reach;Session Completed Bedside;Patient found in Supine -FJ Precautions Fall risk -FJ Type of Home House -FJ Home Layout Multi-level -FJ # of Steps-Railed 7 -FJ Home Access Level entry -FJ Home Mobility Equipment Wheeled walker -FJ Level of [place] Independent with ambulation mod I -FJ Lives With Spouse -FJ Receives Help From Spouse/Significant other as needed -FJ Fall within the last 6 months comment 2 recent falls. pt reprots tripping over a visitor during a home democrat. -FJ Prior Function Comments Pt reports use of walker for home ambulation, along with grab bars as needed. -FJ Pain Assessment No/denies pain -FJ Arousal/Alertness Alert -FJ Orientation Oriented X4 (person, place, time, situation) -FJ Light Touch WFL BLE distal to knees -FJ Numbness/Tingling No -FJ User Perdomo (r) = Recorded By, (t) = Taken By, (c) = Cosigned By Initials Name Effective Dates FJ Elis Coley, PT 05/08/19 - PT TREATMENT (last 168 hours) PT Treatment No documentation. PT Notes (Notes from 12/19/19 through 12/21/19) No notes of this type exist for this encounter. , PT Eval and Treat Last Documented OT ASSESSMENT FLOWSHEET LAST DOCUMENTED (most recent) PT Evaluation - 12/21/19 0753 General PT Received On 12/21/19 Safe Environment Arm Band Checked;Bed Alarm placed and activated;Call Lightwithin Reach;Session Completed Bedside;Patient found in Supine Precautions Precautions Fall risk Home Living Type of Home House Home Layout Multi-level # of Steps-Railed 7 Home Access Level entry Home Mobility Equipment Wheeled walker Prior Function Level of [place] Independent with ambulation mod I Lives With Spouse Receives Help From Spouse/Significant other as needed Fall within the last 6 months comment 2 recent falls. pt reprots tripping over a visitor during a home democrat. Prior Function Comments Pt reports use of walker for home ambulation, along with grab bars as needed. Pain Assessment Pain Assessment No/denies pain Cognition Arousal/Alertness Alert Orientation Oriented X4 (person, place, time, situation) Sensation Light Touch WFL BLE distal to knees Numbness/Tingling No PT TREATMENT (most recent) PT Treatment - 12/21/19 6343 PT Last Visit Safe Environment Arm Band Checked;Bed Alarm placed and activated;Call Light within Reach;Session Completed Bedside;Patient found in Supine Precautions Precautions Fall risk Pain Assessment Pain Assessment No/denies pain Cognition Arousal/Alertness Alert Orientation Oriented X4 (person, place, time, situation) PT Notes (Notes from 12/19/19 through 12/21/19) No notes of this type exist for this encounter. * Plan of Care - Mariaa Pereyra LCSW - 12/21/2019 11:33 AM CDT Images from the original note were not included. Patient Information: Comprehensive Nursing Documentation Attending Provider: Eugene Oates MD Allergies: Penicillins Isolation: None Infection: MDR gram neg/ESBL (12/21/19) Code Status: FULL Ht: 180.3 cm (5' 11 ) Wt: 78.4 kg (172 lb 12.8 oz) Admission Cmt: None Principal Problem: Cholecystitis [K81.9] Intake/Output 12/19/19 0700 - 12/20/19 0659 12/20/19 0700 - 12/21/19 0659 12/21/19 0700 - 12/22/19 0659 Total 4391-4351 2925-4450 6298-7856 Total 0082-9915 8536-5878 3451-9137 Total Intake (ml) 740 -- -- -- -- -- -- -- -- Output (ml) 65 30 12 -10 32 0 -- -- 0 Net (ml) 675 -30 -12 10 -32 0 -- -- 0 Last Weight -- 79.5 kg (175 lb 3.2 oz) -- 78.4 kg (172 lb 12.8 oz) -- -- -- -- -- Patient Lines/Drains/Airways Status Active Airway / Central venous catheter / Drain / Epidural cathether / Intraosseous line / Peripherally inserted central catheter / Peripheral intravenous line / Arterial line Name: Placement date: Placement time: Site: Days: Closed/Suction/Open Drain 1 Right RUQ Bulb 10 Fr. 12/19/19 1202 RUQ 1 Peripheral IV 12/18/19 22 G Left Hand 12/18/19 0000 Hand 3 Midline Catheter 12/05/19 0000 Right Upper arm 12/05/19 0000 -- 16 Patient Lines/Drains/Airways Status Active Wound / Pressure ulcer / Johnson / Negative Pressure Wound Wound 12/19/19 Abscess Lower;Right Abdomen swollen, red, draining serosang, MD packed and dressed this AM Date First Assessed 12/19/19 Site: Abdomen Time First Assessed 914 Days: 2 Present on Hospital Admission: Yes Wound Type: Abscess Location Orientation: Lower;Right Wound Description (Comments): swollen, red, draining serosang, MDpacked and dressed this AM Assessments 12/21/1981612/20/19213912/20/1990412/19/19212912/19/19 1300 Wound Status Evolving -- Evolving -- -- Site Assessment Clean;Color appropriate for ethnicity;Dry;Edema ELIANA ELIANA ELIANA [place];Painful;Swelling Valentine-wound Assessment -- ELIANA ELIANA ELIANA -- Margins -- ELIANA ELIANA ELIANA -- Closure Unapproximated Unable to assess Unable to assess Unable to assess -- Drainage Amount Scant ELIANA ELIANA ELIANA Moderate Drainage Description -- ELIANA ELIANA ELIANA Purulent;Serosanguineous Dressing Status -- Clean/Dry/Intact Clean/Dry/Intact Clean/Dry/Intact Changed Dressing -- Gauze;Packing Gauze;Packing Gauze;Packing;ABD Gauze;ABD Interventions -- -- Other (Comment) -- -- Pressure Ulcer/Pressure Injury 12/19/19 Right Buttocks stg 2 blanca size, pink, single thickness, allevyn Date First Assessed 12/19/19 Site: Buttocks Time First Assessed 914 Days: 2 Present on Hospital Admission: Yes Present on Transfer to Nursing Division: Yes Location Orientation: Right Wound Description (Comments): stg 2 blanca size, pink, single thickness, allevyn Assessments 12/21/1981612/20/19213912/20/1990412/19/192129 Pressure Ulcer Status Healing Healing Healing -- Description Non-intact, shallow ulcer (c/w Stage 2, open, no depth, no slough) Non-intact, shallow ulcer (c/w Stage 2, open, no depth, no slough) Non-intact, shallow ulcer (c/w Stage 2, open, no depth, no slough) -- Staging -- Stage 2 Stage 2 Stage 2 Valentine-wound Assessment Dry;Intact Dry;Intact Dry;Intact ELIANA Margins Unattached edges -- Defined edges ELIANA Drainage Amount None ELIANA ELIANA ELIANA Drainage Description -- ELIANA -- -- Drainage Odor No odor -- -- -- Dressing Status New;Changed Clean/Dry/Intact New;Changed Clean/Dry/Intact Dressing/Intervention Foam (Comment-type) Foam (Comment-type) Foam (Comment- type) Foam (Comment-type) Pressure Ulcer/Pressure Injury 12/19/19 Left Buttocks sm open area, stg 2, pink, allevyn Date First Assessed 12/19/19 Site: Buttocks Time First Assessed 914 Days: 2 Present on Hospital Admission: Yes Present on Transfer to Nursing Division: Yes Location Orientation: Left Wound Description (Comments): sm open area, stg 2, pink, allevyn Assessments 12/21/1981612/20/19213912/20/19 0912/19/192129 Pressure Ulcer Status Healing Healing Healing -- Description Non-intact, shallow ulcer (c/w Stage 2, open, no depth, no slough) Non-intact, rupturedblister (c/w Stage 2, open, no depth, no slough) Non-intact, shallow ulcer (c/w Stage 2, open, no depth, no slough) -- Staging -- Stage 2 Stage 2 Stage 2 Valentine-wound Assessment Dry;Intact;Color appropriate for ethnicity Dry;Intact Dry;Intact ELIANA Margins Unattached edges -- Attached edges ELIANA Drainage Amount None ELIANA ELIANA ELIANA Drainage Description -- ELIANA -- -- Drainage Odor No odor -- No odor -- Dressing Status New;Changed;Clean/Dry/Intact Clean/Dry/Intact New;Changed Clean/Dry/Intact Dressing/Intervention Foam (Comment-type) -- Foam (Comment-type) Foam (Comment-type) [place] Fall Risk Most Recent Value Auto Low/High - if selected proceed to interventions High risk-visit due to a fall or hx of > 1 fall in past 3 months ............filed at 12/19/2019 1400 History of Falling 25 ............filed at 12/21/2019 0753 Secondary Diagnosis 15 ............filed at 12/21/2019 0753 Ambulatory Aids 15 ............filed at 12/21/2019 0753 Intravenous Therapy/Heparin/Saline Lock 20 ............filed at 12/21/2019 0753 Gait/Transferring 10 ............filed at 12/21/2019 0753 Mental Status 15 ............filed at 12/21/2019 0753 Hardin Fall Risk Score 100 ............filed at 12/21/2019 0753 Vital Signs 12/19 699 - 12/20 0659 12/20 699 - 12/20 1134 Most Recent Temp (??C) 36.3 - 37 36.6 36.6 (97.9) Pulse 58 - 105 66 - 79 79 Resp 14 - 16 16 16 SpO2 (%) 92 - 98 99 - 100 100 BP 123/73 - 150/111 138/87 - 148/106 148/106 MAP (mmHg) 85 - 121 116 116 Default Flowsheet Data (most recent) Endurance Tests No documentation. Nursing Nutrition None Nursing Mobility Activity 12/20 0736 Resting in bed 12/20 0534 Resting in bed 12/20 0145 Sleeping 12/19 2140 Resting in bed 12/19 1527 Resting in bed 12/19 1144 Resting in bed 12/19 1019 Resting in bed 12/19 0915 Resting in bed 12/19 0751 Resting in bed 12/19 0720 Resting in bed 12/19 0600 Sleeping 12/19 0350 Sleeping 12/19 0120 Resting in bed 12/18 2240 Resting in bed 12/18 2130 Resting in bed 12/18 0536 Sleeping 12/18 0335 Sleeping 12/18 0152 Sleeping 12/18 0100 Sleeping 12/17 2330 Sleeping Level of Assistance 12/19 2140 Minimal assist, patient does 75% or more 12/19 1144 Minimal assist, patient does 75% or more 12/19 0751 Minimal assist, patient does 75% or more 12/18 2129 Minimal assist, patient does 75% or more Assistive Device 12/19 2140 None 12/19 1144 None 12/19 0751 None 12/18 2130 None Repositioned 12/20 0736 Supine 12/19 2140 Turns self 12/19 1527 Turns self 12/19 1144 Turns self 12/19 1019 Turns self 12/19 0751 Turns self 12/18 2130 Turns self Positioning Frequency 12/20 0736 Able to turn self 12/19 2140 Able to turn self 12/19 1527 Able to turn self 12/19 1144 Able to turn self 12/19 1019 Able to turn self 12/19 0751 Able to turn self 12/19 0720 Able to turn self 12/18 2130 Able to turn self 12/18 1400 Able to turn self 12/17 2100 Able to turn self Head of Bed Elevated 12/20 0736 Self regulated 12/19 2140 Self regulated 12/19 1527 Self regulated 12/19 1144 Self regulated 12/19 0751 Self regulated 12/18 2130 Self regulated 12/17 2100 Self regulated Range of Motion 12/19 2140 Active;All extremities 12/19 1527 Active;All extremities 12/19 1144 Active;All extremities 12/19 0751 Active;All extremities 12/18 213 Active;All extremities Type of Device 12/20 075 Mechanical compression 12/19 2140 Mechanical compression 12/19 1019 Mechanical compression 12/18 2130 Mechanical compression Mechanical Compression Site 12/20 075 Bilateral 12/19 2140 Bilateral 12/19 1019 Bilateral 12/18 213 Bilateral Mechanical Compression Type 12/20 0753 IPC/SCD 12/19 2140 IPC/SCD 12/19 1019 IPC/SCD 12/18 2130 IPC/SCD Mechanical Compression Status 12/20 075 Off 12/19 2140 Off 12/19 1019 Off 12/18 2129 Off , Meds and Admin Active Only All Meds/Most Recent Administrations sodium chloride 0.9% flush 0.5-20 mL [[id number]] Ordering Provider: Hola Weinstein MD Status: Verified Ordered On: 12/18/192102 Start: 12/18/192199 Dose (Remaining/Total): 0.5-20 mL (--/--) Route: intra-catheter Frequency: Every 8 hours scheduled Rate/Duration: -- / -- Admin Instructions: Flush volume based on line type and size. Timestamps Action Dose Route Other Information 12/20/192145 Given 10 mL intra-catheter Performed by: Valeria Cole RN Scanned Package: [id number] sodium chloride 0.9% flush 0.5-20 mL [[id number]] Ordering Provider: Hola Weinstein MD Status: Verified Ordered On: 12/18/192102 Start: 12/18/19 2100 Dose (Remaining/Total): 0.5-20 mL (--/--) Route: intra-catheter Frequency: As needed Rate/Duration: -- / -- Admin Instructions: Flush volume based on line type and size. Flush before and after each use. (No admins recorded for this medication) metroNIDAZOLE (FLAGYL) 500 mg/100 mL in sodium chloride (premix) 500 mg [[id number]] Ordering Provider: Hola Weinstein MD Status: Completed (Past End Date/Time) Ordered On: 12/18/192158 Starts/Ends: 12/18/192229 - 12/19/19 0115 Dose (Remaining/Total): 500 mg (0/1) Route: intravenous Frequency: Once Rate/Duration: 200 mL/hr / 30 Minutes Admin Instructions: Room temperature only Timestamps Action Dose / Rate / Duration Route Other Information 12/19/19 0045 New Bag 500 mg 200 mL/hr 30 Minutes intravenous Performed by: Sada Jorge RN magnesium sulfate 4 g/100 mL in water (premix) 4 g [[id number]] Ordering Provider: Hola Weinstein MD Status: Completed (Past End Date/Time) Ordered On: 12/18/192343 Starts/Ends: 12/19/19 0015 - 12/19/19 0310 Dose (Remaining/Total): 4 g (0/1) Route: intravenous Frequency: Once Rate/Duration: -- / 90 Minutes Timestamps Action Dose / Duration Route Other Information 12/19/19 0140 New Bag 4 g 90 Minutes intravenous Performed by: Sada Jorge RN potassium chloride 40 mEq/520 mL in sodium chloride 0.9% (premix) 40 mEq [[id number]] Ordering Provider: Hola Weinstein MD Status: Completed (Past End Date/Time) Ordered On: 12/18/192343 Starts/Ends: 12/19/19 0015 - 12/19/19 0540 Dose (Remaining/Total): 40 mEq (0/1) Route: intravenous Frequency: Once Rate/Duration: 130 mL/hr / 4 Hours Admin Instructions: Total dose = 60 mEq Timestamps Action Dose / Rate / Duration Route Other Information 12/19/19 0140 New Bag 40 mEq 130 mL/hr 4 Hours intravenous Performed by: Sada Jorge RN potassium chloride 20 mEq/260 mL in sodium chloride 0.9% (premix) 20 mEq [[id number]] Ordering Provider: Hola Weinstein MD Status: Completed (Past End Date/Time) Ordered On: 12/18/192343 Starts/Ends: 12/19/19 0414 - 12/19/19 1017 Dose (Remaining/Total): 20 mEq (0/1) Route: intravenous Frequency: Once Rate/Duration: -- / 2 Hours Admin Instructions: Total dose = 60 mEq. Start immediately after first potassium chloride infusion ends. Timestamps Action Dose / Duration Route Other Information 12/19/19 0817 New Bag 20 mEq 2 Hours intravenous Performed by: Tanja Garcia RN enoxaparin (LOVENOX) syringe 40 mg [[id number]] Ordering Provider: Gato Hamilton MD Status: Dispensed Ordered On: 12/19/19 0603 Start: 12/19/19 2100 Dose (Remaining/Total): 40 mg (--/--) Route: subcutaneous Frequency: Daily (for enoxaparin) Rate/Duration: -- / -- Timestamps Action Dose Route / Site Other Information 12/20/19 2145 Given 40 mg subcutaneous Left Lower Abdomen Performed by: Valeria Cole RN Scanned Package: [id number] sodium chloride 0.9% flush 0.5-20 mL [[id number]] Ordering Provider: Byron Begum MD Status: Verified Ordered On: 12/19/19 1503 Start: 12/19/19 1545 Dose (Remaining/Total): 0.5-20 mL (--/--) Route: intra-catheter Frequency: Every 8 hours scheduled Rate/Duration: -- / -- Admin Instructions: Flush volume based on line type and size. Timestamps Action Dose Route Other Information 12/20/192145 Given 10 mL intra-catheter Performed by: Valeria Cole RN Scanned Package: [id number] sodium chloride 0.9% flush 0.5-20 mL [[id number]] Ordering Provider: Byron Begum MD Status: Verified Ordered On: 12/19/191502 Start: 12/19/191502 Dose (Remaining/Total): 0.5-20 mL (--/--) Route: intra-catheter Frequency: As needed Rate/Duration: -- / -- Admin Instructions: Flush volume based on line type and size. Flush before and after each use. (No admins recorded for this medication) midazolam (VERSED) preservative free injection [[id number]] Ordering Provider: Katie Gilbert MD Status: Completed (Past End Date/Time) Ordered On: 12/19/191152 Frequency: Code/trauma/sedation medication Timestamps Action Dose Route Other Information 12/19/19 115 Given 1 mg intravenous Performed by: Taryn Herrera RN fentaNYL (SUBLIMAZE) preservative free injection [[id number]] Ordering Provider: Katie Gilbert MD Status: Completed (Past End Date/Time) Ordered On: 12/19/19 115 Frequency: Code/trauma/sedation medication Timestamps Action Dose Route Other Information 12/19/191152 Given 50 mcg intravenous Performed by: Taryn Herrera RN lidocaine PF (XYLOCAINE) 10 mg/mL (1 %) preservative free injection [[id number]] Ordering Provider: Byron Begum MD Status: Completed (Past End Date/Time) Ordered On: 12/19/191154 Frequency: Code/trauma/sedation medication Timestamps Action Dose Route Other Information 12/19/191154 Given 10 mL Injection Performed by: Byron Begum MD Documented by: Taryn Herrera RN iothalamate meglumine (CONRAY) 60 % injection [[id number]] Ordering Provider: Byron Begum MD Status: Completed (Past End Date/Time) Ordered On: 12/19/191208 Frequency: Code/trauma/sedation medication Timestamps Action Dose Route / Site / Linked Line Other Information 12/19/191208 Given 10 mL -- Performed by: Byron Begum MD Documented by: Taryn Herrear RN ondansetron ODT (ZOFRAN-ODT) disintegrating tablet 4 mg [[id number]] Ordering Provider: LORI Wilson Status: Verified Ordered On: 12/20/19544 Start: 12/20/19544 Dose (Remaining/Total): 4 mg (--/--) Route: oral Frequency: Every 4 hours PRN Rate/Duration: -- / -- (No admins recorded for this medication) acetaminophen (TYLENOL) tablet 1,000 mg [[id number]] Ordering Provider: LORI Wilson Status: Verified Ordered On: 12/20/19544 Start: 12/20/19544 Dose (Remaining/Total): 1,000 mg (--/--) Route: oral Frequency: Every 6 hours PRN Rate/Duration: -- / -- (No admins recorded for this medication) potassium chloride (KAYCIEL) 1.3 mEq/mL oral liquid 40 mEq [[id number]] Ordering Provider: LORI Wilson Status: Completed (Past End Date/Time) Ordered On: 12/20/19545 Starts/Ends: 12/20/19629 - 12/20/19606 Dose (Remaining/Total): 40 mEq (0/1) Route: feeding tube Frequency: Once Rate/Duration: -- / -- Admin Instructions: Recommend to dilute each 15 mL with at least 6 ounces of water or juice prior to administration. Timestamps Action Dose Route Other Information 12/20/19606 Given 40 mEq feeding tube Performed by: Valeria Cole RN Scanned Package: 52904-392-46 aspirin enteric coated tablet 325 mg [[id number]] Ordering Provider: LORI Wilson Status: Dispensed Ordered On: 12/21/19753 Start: 12/21/19899 Dose (Remaining/Total): 325 mg (--/--) Route: oral Frequency: Daily Rate/Duration: -- / -- Admin Instructions: Do not crush, chew, cut, dissolve, open or otherwise manipulate tablet/capsule. Timestamps Action Dose Route Other Information 12/21/19834 Given 325 mg oral Performed by: Sharonda Guadarrama RN Scanned Package: [id number] dilTIAZem XR (CARDIZEM CD,DILACOR XR) 24 hour capsule 240 mg [[id number]] Ordering Provider: LORI Wilson Status: Dispensed Ordered On: 12/21/19753 Start: 12/21/19899 Dose (Remaining/Total): 240 mg (--/--) Route: oral Frequency: Daily Rate/Duration: -- / -- Admin Instructions: Do not crush, chew, cut, dissolve, open or otherwise manipulate tablet/capsule. Timestamps Action Dose Route Other Information 12/21/191112 Given 240 mg oral Performed by: Sharonda Guadarrama RN Scanned Package: [id number] folic acid (FOLVITE) tablet 1 mg [[id number]] Ordering Provider: LORI Wilson Status: Dispensed Ordered On: 12/21/19753 Start: 12/21/19899 Dose (Remaining/Total): 1 mg (--/--) Route: oral Frequency: Daily Rate/Duration: -- / -- Timestamps Action Dose Route Other Information 12/21/19834 Given 1 mg oral Performed by: Sharonda Guadarrama RN Scanned Package: [id number] magnesium oxide (MAG-OX) tablet 400 mg [[id number]] Ordering Provider: LORI Wilson Status: Dispensed Ordered On: 12/21/19753 Start: 12/21/19899 Dose (Remaining/Total): 400 mg (--/--) Route: oral Frequency: Daily Rate/Duration: -- / -- Admin Instructions: 1 tablet = Magnesium oxide 400 mg = 241.3 mg elemental magnesium Timestamps Action Dose Route Other Information 12/21/1936 Given 400 mg oral Performed by: Sharonda Guadarrama RN Scanned Package: [id number] metoprolol tartrate (LOPRESSOR) immediate release tablet 25 mg [[id number]] Ordering Provider: LORI Wilson Status: Dispensed Ordered On: 12/21/19753 Start: 12/21/19899 Dose (Remaining/Total): 25 mg (--/--) Route: oral Frequency: 2 times daily Rate/Duration: -- / -- Timestamps Action Dose Route Other Information 12/21/19834 Given 25 mg oral Performed by: Sharonda Guadarrama RN Scanned Package: [id number] (PROTONIX) extended release tablet 40 mg [[id number]] Ordering Provider: LORI Wilson Status: Dispensed Ordered On: 12/21/19753 Start: 12/21/19899 Dose (Remaining/Total): 40 mg (--/--) Route: oral Frequency: Daily Rate/Duration: -- / -- Admin Instructions: Do not crush, chew, cut, dissolve, open or otherwise manipulate tablet/capsule. Timestamps Action Dose Route Other Information 12/21/19834 Given 40 mg oral Performed by: Sharonda Guadarrama RN Scanned Package: [id number] polyethylene glycol (MIRALAX) packet 17 g [[id number]] Ordering Provider: LORI Wilson Status: Dispensed Ordered On: 12/21/19753 Start: 12/21/19899 Dose (Remaining/Total): 17 g (--/--) Route: oral Frequency: Daily Rate/Duration: -- / -- (No admins recorded for this medication) QUEtiapine (SEROquel) tablet 12.5 mg [[id number]] Ordering Provider: LORI Wilson Status: Verified Ordered On: 12/21/19753 Start: 12/21/19 2100 Dose (Remaining/Total): 12.5 mg (--/--) Route: oral Frequency: Nightly Rate/Duration: -- / -- (No admins recorded for this medication) thiamine (VITAMIN B1) tablet 100 mg [[id number]] Ordering Provider: LORI Wilson Status: Dispensed Ordered On: 12/21/19 0754 Start: 12/21/19 0900 Dose (Remaining/Total): 100 mg (--/--) Route: oral Frequency: Daily Rate/Duration: -- / -- Timestamps Action Dose Route Other Information 12/21/19 0835 Given 100 mg oral Performed by: Sharonda Guadarrama RN Scanned Package: [id number] meropenem (MERREM) 1,000 mg/110 mL in sodium chloride 0.9% (premix) 1,000 mg [[id number]] Ordering Provider: LORI Wilson Status: Dispensed Ordered On: 12/21/19 1039 Start: 12/21/19 1600 Dose (Remaining/Total): 1,000 mg (--/--) Route: intravenous Frequency: Every 8 hours scheduled Rate/Duration: 220 mL/hr / 30 Minutes (No admins recorded for this medication) levalbuterol (XOPENEX) 1.25 mg/3 mL nebulizer solution 1.25 mg [[id number]] Ordering Provider: LORI Wilson Status: Dispensed Ordered On: 12/21/19 1113 Start: 12/21/19 1115 Dose (Remaining/Total): 1.25 mg (--/--) Route: nebulization Frequency: Every 6 hours PRN (respiratory care faculty) Rate/Duration: -- / -- (No admins recorded for this medication) , Wound Info Only Patient Lines/Drains/Airways Status Active Wound / Pressure ulcer / Johnson / Negative Pressure Wound Wound 12/19/19 Abscess Lower;Right Abdomen swollen, red, draining serosang, packed and dressed this AM Date First Assessed 12/19/19 Site: Abdomen Time First Assessed 15 Days: 2 Present on Hospital Admission: Yes Wound Type: Abscess Location Orientation: Lower;Right Wound Description (Comments): swollen, red, draining serosang, MDpacked and dressed this AM Assessments 12/21/19 0817 12/20/19 2140 12/20/19 0912/19/19 21312/19/19 1300 Wound Status Evolving -- Evolving -- -- Site Assessment Clean;Color appropriate for ethnicity;Dry;Edema ELIANA ELIANA ELIANA [place];Painful;Swelling Valentine-wound Assessment -- ELIANA ELIANA ELIANA -- Margins -- ELIANA ELIANA ELIANA -- Closure Unapproximated Unable to assess Unable to assess Unable to assess -- Drainage Amount Scant ELIANA ELIANA ELIANA Moderate Drainage Description -- ELIANA ELIANA ELIANA Purulent;Serosanguineous Dressing Status -- Clean/Dry/Intact Clean/Dry/Intact Clean/Dry/Intact Changed Dressing -- Gauze;Packing Gauze;Packing Gauze;Packing;ABD Gauze;ABD Interventions -- -- Other (Comment) -- -- Pressure Ulcer/Pressure Injury 12/19/19 Right Buttocks stg 2 blanca size, pink, single thickness, allevyn Date First Assessed 12/19/19 Site: Buttocks Time First Assessed 914 Days: 2 Present on Hospital Admission: Yes Present on Transfer to Nursing Division: Yes Location Orientation: Right Wound Description (Comments): stg 2 blanca size, pink, single thickness, allevyn Assessments 12/21/19 0812/20/19213912/20/1990412/19/192129 Pressure Ulcer Status Healing Healing Healing -- Description Non-intact, shallow ulcer (c/w Stage 2, open, no depth, no slough) Non-intact, shallow ulcer (c/w Stage 2, open, no depth, no slough) Non-intact, shallow ulcer (c/w Stage 2, open, no depth, no slough) -- Staging -- Stage 2 Stage 2 Stage 2 Valentine-wound Assessment Dry;Intact Dry;Intact Dry;Intact ELIANA Margins Unattached edges -- Defined edges ELIANA Drainage Amount None ELIANA ELIANA ELIANA Drainage Description -- ELIANA -- -- Drainage Odor No odor -- -- -- Dressing Status New;Changed Clean/Dry/Intact New;Changed Clean/Dry/Intact Dressing/Intervention Foam (Comment-type) Foam (Comment-type) Foam (Comment- type) Foam (Comment-type) Pressure Ulcer/Pressure Injury 12/19/19 Left Buttocks sm open area, stg 2, pink, allevyn Date First Assessed 12/19/19 Site: Buttocks Time First Assessed 914 Days: 2 Present on Hospital Admission: Yes Present on Transfer to Nursing Division: Yes Location Orientation: Left Wound Description (Comments): sm open area, stg 2, pink, allevyn Assessments 12/21/19 0817 12/20/19 2140 12/20/19 0905 12/19/19 2130 Pressure Ulcer Status Healing Healing Healing -- Description Non-intact, shallow ulcer (c/w Stage 2, open, no depth, no slough) Non-intact, rupturedblister (c/w Stage 2, open, no depth, no slough) Non- intact, shallow ulcer (c/w Stage 2, open, no depth, no slough) -- Staging -- Stage 2 Stage 2 Stage 2 Valentine-wound Assessment Dry;Intact;Color appropriate for ethnicity Dry;Intact Dry;Intact ELIANA Margins Unattached edges -- Attached edges ELIANA Drainage Amount None ELIANA ELIANA ELIANA Drainage Description -- ELIANA -- -- Drainage Odor No odor -- No odor -- Dressing Status New;Changed;Clean/Dry/Intact Clean/Dry/Intact New;Changed Clean/Dry/Intact Dressing/Intervention Foam (Comment-type) -- Foam (Comment-type) Foam (Comment-type) , Vitals Info Only Vital Signs 12/19 699 - 12/20 0659 12/20 699 - 12/20 1134 Most Recent Temp (??C) 36.3 - 37 36.6 36.6 (97.9) Pulse 58 - 105 66 - 79 79 Resp 14 - 16 16 16 SpO2 (%) 92 - 98 99 - 100 100 BP 123/73 - 150/111 138/87 - 148/106 148/106 MAP (mmHg) 85 - 121 116 116 , Oxygen Info Only Default Flowsheet Data (most recent) Endurance Tests No documentation. Default Flowsheet Data (last 48 hours) Oxygen Row Name 12/21/19 0817 12/21/19 0753 12/21/19 0736 12/21/19 0521 12/21/19 0038 Oxygen Therapy/Pulse Ox O2 Therapy -- -- None (Room air) None (Room air) None (Room air) SpO2 100 % 99 % 100 % 98 % 98 % Row Name 12/20/19 21412/20/19 1526 12/20/19 1144 12/20/19 0905 12/20/19 0749 Oxygen Therapy/Pulse Ox O2 Therapy None (Room air) None (Room air) None (Room air) None (Room air) None (Room air) SpO2 98 % 96 % 92 % -- 92 % Row Name 12/20/19 0530 12/20/19 0120 12/19/19 2100 12/19/19 1900 12/19/19 1800 Oxygen Therapy/Pulse Ox O2 Therapy None (Room air) -- None (Room air) -- -- SpO2 97 % 95 % 100 % 96 % 96 % Row Name 12/19/19 1700 12/19/19 1629 12/19/19 1600 12/19/19 1545 12/19/19 1530 Oxygen Therapy/Pulse Ox O2 Therapy None (Room air) None (Room air) None (Room air) None (Room air) -- SpO2 98 % 95 % 95 % 99 % 95 % Row Name 12/19/19 1515 12/19/19 1220 12/19/19 1215 12/19/19 1210 12/19/19 1205 Oxygen Therapy/Pulse Ox O2 Therapy None (Room air) None (Room air) None (Room air) None (Room air) Supplemental oxygen O2 Del Method -- -- -- -- Nasal cannula O2 Flow Rate (L/min) -- -- -- -- 2 L/min SpO2 97 % 97 % 96 % 96 % 99 % Patient Activity -- At rest At rest At rest At rest Row Name 12/19/19 1200 12/19/19 1155 12/19/19 1150 12/19/19 1145 Oxygen Therapy/Pulse Ox O2 Therapy Supplemental oxygen None (Room air) None (Room air) None (Room air) O2 Del Method Nasal cannula -- -- -- O2 Flow Rate (L/min) 2 L/min -- -- -- SpO2 99 % 96 % 96 % 96 % Patient Activity At rest At rest At rest At rest * Plan of Care - Sharonda Guadarrama RN - 12/21/2019 9:10 AM CDT Problem: Lack of Knowledge: Goal: Ability to state ways to decrease the risk of falls will improve Outcome: Progressing Problem: Safety: Goal: Will remain free from falls Outcome: Progressing Goal: Will remain free from injury from falls Outcome: Progressing Goal: Will remain free from falls and injury in home environment Outcome: Progressing Problem: Lack of Knowledge: Goal: Ability to develop a pain control plan will improve Outcome: Progressing Goal: Ability to identify pain intensity on a pain scale and rate it consistently will improve Outcome: Progressing Goal: Ability to notify healthcare provider of pain before it becomes unmanageable or unbearable will improve Outcome: Progressing Problem: Medication: Goal: Satisfaction with pain management regimen will improve Outcome: Progressing Problem: Sensory: Goal: Ability to identify factors that increase the pain will improve Outcome: Progressing Goal: Pain level will decrease Outcome: Progressing Problem: Activity: Goal: Risk for activity intolerance will decrease Outcome: Progressing Problem: Lack of Knowledge: Goal: Knowledge of diagnostic tests will improve Outcome: Progressing Goal: Knowledge of disease or condition will improve Outcome: Progressing Goal: Knowledge of safety precautions will improve Outcome: Progressing Goal: Knowledge of the prescribed therapeutic regimen will improve Outcome: Progressing Problem: Health Behavior: Goal: Ability to state signs and symptoms to report to health care provider will improve Outcome: Progressing Problem: Physical Regulation: Goal: Ability to maintain clinical measurements within normal limits will improve Outcome: Progressing Problem: Infection Risk: Goal: Will remain free from infection Outcome: Progressing Problem: Safety: Goal: Ability to remain free from injury will improve Outcome: Progressing Goal: Will remain free from falls Outcome: Progressing Problem: Self-Care: Goal: Ability to participate in self-care as condition permits will improve Outcome: Progressing Problem: Sensory: Goal: Pain level will decrease Outcome: Progressing Goal: Ability to develop a pain control plan will improve Outcome: Progressing Problem: Skin Integrity: Goal: Risk for impaired skin integrity will decrease Outcome: Progressing Problem: Tissue Perfusion: Goal: Risk factors for ineffective tissue perfusion will decrease Outcome: Progressing Problem: Activity: Goal: Mobility will improve Outcome: Progressing Problem: Lack of Knowledge: Goal: Understanding of ways to prevent future skin breakdown will improve Outcome: Progressing Problem: Skin Integrity: Goal: Risk for impaired skin integrity will decrease Outcome: Progressing Goal: Ability to demonstrate warm and dry skin will improve Outcome: Progressing Goal: Circulation will improve to fullest extent possible Outcome: Progressing Problem: Health Behavior: Goal: Understanding of discharge needs will improve Outcome: Progressing Goals: Clinical Goals for the Shift: monitor vital signs, I/Os, lab values, rest Summary: * Plan of Valeria Freedman, GAURAV - 12/20/2019 11:23 PM CDT Goals: Clinical Goals for the Shift: monitor vital signs, I/Os, lab values, rest Summary: Problem: Lack of Knowledge: Goal: Ability to state ways to decrease the risk of falls will improve Outcome: Progressing Problem: Safety: Goal: Will remain free from falls Outcome: Progressing Goal: Will remain free from injury from falls Outcome: Progressing Goal: Will remain free from falls and injury in home environment Outcome: Progressing Problem: Lack of Knowledge: Goal: Ability to develop a pain control plan will improve Outcome: Progressing Goal: Ability to identify pain intensity on a pain scale and rate it consistently will improve Outcome: Progressing Goal: Ability to notify healthcare provider of pain before it becomes unmanageable or unbearable will improve Outcome: Progressing Problem: Medication: Goal: Satisfaction with pain management regimen will improve Outcome: Progressing Problem: Sensory: Goal: Ability to identify factors that increase the pain will improve Outcome: Progressing Goal: Pain level will decrease Outcome: Progressing Problem: Activity: Goal: Risk for activity intolerance will decrease Outcome: Progressing Problem: Lack of Knowledge: Goal: Knowledge of diagnostic tests will improve Outcome: Progressing Goal: Knowledge of disease or condition will improve Outcome: Progressing Goal: Knowledge of safety precautions will improve Outcome: Progressing Goal: Knowledge of the prescribed therapeutic regimen will improve Outcome: Progressing Problem: Health Behavior: Goal: Ability to state signs and symptoms to report to health care provider will improve Outcome: Progressing Problem: Physical Regulation: Goal: Ability to maintain clinical measurements within normal limits will improve Outcome: Progressing Problem: Infection Risk: Goal: Will remain free from infection Outcome: Progressing Problem: Safety: Goal: Ability to remain free from injury will improve Outcome: Progressing Goal: Will remain free from falls Outcome: Progressing Problem: Self-Care: Goal: Ability to participate in self-care as condition permits will improve Outcome: Progressing Problem: Sensory: Goal: Pain level will decrease Outcome: Progressing Goal: Ability to develop a pain control plan will improve Outcome: Progressing * Plan of Corine Ivan RN - 12/20/2019 6:16 PM CDT Problem: Lack of Knowledge: Goal: Ability to state ways to decrease the risk of falls will improve Outcome: Progressing Problem: Safety: Goal: Will remain free from falls Outcome: Progressing Goal: Will remain free from injury from falls Outcome: Progressing Goal: Will remain free from falls and injury in home environment Outcome: Progressing Problem: Lack of Knowledge: Goal: Ability to develop a pain control plan will improve Outcome: Progressing Goal: Ability to identify pain intensity on a pain scale and rate it consistently will improve Outcome: Progressing Goal: Ability to notify healthcare provider of pain before it becomes unmanageable or unbearable will improve Outcome: Progressing Problem: Medication: Goal: Satisfaction with pain management regimen will improve Outcome: Progressing Problem: Sensory: Goal: Ability to identify factors that increase the pain will improve Outcome: Progressing Goal: Pain level will decrease Outcome: Progressing Problem: Activity: Goal: Risk for activity intolerance will decrease Outcome: Progressing Problem: Lack of Knowledge: Goal: Knowledge of diagnostic tests will improve Outcome: Progressing Goal: Knowledge of disease or condition will improve Outcome: Progressing Goal: Knowledge of safety precautions will improve Outcome: Progressing Goal: Knowledge of the prescribed therapeutic regimen will improve Outcome: Progressing Problem: Health Behavior: Goal: Ability to state signs and symptoms to report to health care provider will improve Outcome: Progressing Problem: Physical Regulation: Goal: Ability to maintain clinical measurements within normal limits will improve Outcome: Progressing Problem: Infection Risk: Goal: Will remain free from infection Outcome: Progressing Problem: Safety: Goal: Ability to remain free from injury will improve Outcome: Progressing Goal: Will remain free from falls Outcome: Progressing Problem: Self-Care: Goal: Ability to participate in self-care as condition permits will improve Outcome: Progressing Problem: Sensory: Goal: Pain level will decrease Outcome: Progressing Goal: Ability to develop a pain control plan will improve Outcome: Progressing Problem: Skin Integrity: Goal: Risk for impaired skin integrity will decrease Outcome: Progressing Problem: Tissue Perfusion: Goal: Risk factors for ineffective tissue perfusion will decrease Outcome: Progressing Problem: Activity: Goal: Mobility will improve Outcome: Progressing Problem: Lack of Knowledge: Goal: Understanding of ways to prevent future skin breakdown will improve Outcome: Progressing Problem: Skin Integrity: Goal: Risk for impaired skin integrity will decrease Outcome: Progressing Goal: Ability to demonstrate warm and dry skin will improve Outcome: Progressing Goal: Circulation will improve to fullest extent possible Outcome: Progressing Problem: Health Behavior: Goal: Understanding of discharge needs will improve Outcome: Progressing Goals: Clinical Goals for the Shift: monitor drain, frequent checks for incontinence, safe ambulation Summary: Patient has had multiple bouts of incontinence. Patient has not been ambulating today. * Plan of Care - Valeria Cole RN - 12/19/2019 10:32 PM CDT Goals: Clinical Goals for the Shift: rest, monitor vital signs, I/Os Summary: Problem: Lack of Knowledge: Goal: Ability to state ways to decrease the risk of falls will improve Outcome: Progressing Problem: Safety: Goal: Will remain free from falls Outcome: Progressing Goal: Will remain free from injury from falls Outcome: Progressing Goal: Will remain free from falls and injury in home environment Outcome: Progressing Problem: Lack of Knowledge: Goal: Ability to develop a pain control plan will improve Outcome: Progressing Goal: Ability to identify pain intensity on a pain scale and rate it consistently will improve Outcome: Progressing Goal: Ability to notify healthcare provider of pain before it becomes unmanageable or unbearable will improve Outcome: Progressing Problem: Medication: Goal: Satisfaction with pain management regimen will improve Outcome: Progressing Problem: Sensory: Goal: Ability to identify factors that increase the pain will improve Outcome: Progressing Goal: Pain level will decrease Outcome: Progressing Problem: Activity: Goal: Risk for activity intolerance will decrease Outcome: Progressing Problem: Lack of Knowledge: Goal: Knowledge of diagnostic tests will improve Outcome: Progressing Goal: Knowledge of disease or condition will improve Outcome: Progressing Goal: Knowledge of safety precautions will improve Outcome: Progressing Goal: Knowledge of the prescribed therapeutic regimen will improve Outcome: Progressing Problem: Health Behavior: Goal: Ability to state signs and symptoms to report to health care provider will improve Outcome: Progressing Problem: Physical Regulation: Goal: Ability to maintain clinical measurements within normal limits will improve Outcome: Progressing Problem: Infection Risk: Goal: Will remain free from infection Outcome: Progressing Problem: Safety: Goal: Ability to remain free from injury will improve Outcome: Progressing Goal: Will remain free from falls Outcome: Progressing Problem: Self-Care: Goal: Ability to participate in self-care as condition permits will improve Outcome: Progressing Problem: Sensory: Goal: Pain level will decrease Outcome: Progressing Goal: Ability to develop a pain control plan will improve Outcome: Progressing Problem: Skin Integrity: Goal: Risk for impaired skin integrity will decrease Outcome: Progressing Problem: Tissue Perfusion: Goal: Risk factors for ineffective tissue perfusion will decrease Outcome: Progressing Problem: Activity: Goal: Mobility will improve Outcome: Progressing Problem: Lack of Knowledge: Goal: Understanding of ways to prevent future skin breakdown will improve Outcome: Progressing Problem: Skin Integrity: Goal: Risk for impaired skin integrity will decrease Outcome: Progressing Goal: Ability to demonstrate warm and dry skin will improve Outcome: Progressing Goal: Circulation will improve to fullest extent possible Outcome: Progressing Problem: Health Behavior: Goal: Understanding of discharge needs will improve Outcome: Progressing * Plan of Care - Tanja Garcia RN - 12/19/2019 3:07 PM CDT Goals: IR for drain, OOB, zabrina PO intake, VSS, pain management Problem: Lack of Knowledge: Goal: Ability to state ways to decrease the risk of falls will improve Outcome: Progressing Problem: Safety: Goal: Will remain free from falls Outcome: Progressing Goal: Will remain free from injury from falls Outcome: Progressing Goal: Will remain free from falls and injury in home environment Outcome: Progressing Problem: Lack of Knowledge: Goal: Ability to develop a pain control plan will improve Outcome: Progressing Goal: Ability to identify pain intensity on a pain scale and rate it consistently will improve Outcome: Progressing Goal: Ability to notify healthcare provider of pain before it becomes unmanageable or unbearable will improve Outcome: Progressing Problem: Medication: Goal: Satisfaction with pain management regimen will improve Outcome: Progressing Problem: Sensory: Goal: Ability to identify factors that increase the pain will improve Outcome: Progressing Goal: Pain level will decrease Outcome: Progressing Problem: Activity: Goal: Risk for activity intolerance will decrease Outcome: Progressing Problem: Lack of Knowledge: Goal: Knowledge of diagnostic tests will improve Outcome: Progressing Goal: Knowledge of disease or condition will improve Outcome: Progressing Goal: Knowledge of safety precautions will improve Outcome: Progressing Goal: Knowledge of the prescribed therapeutic regimen will improve Outcome: Progressing Problem: Health Behavior: Goal: Ability to state signs and symptoms to report to health care provider will improve Outcome: Progressing Problem: Physical Regulation: Goal: Ability to maintain clinical measurements within normal limits will improve Outcome: Progressing Problem: Infection Risk: Goal: Will remain free from infection Outcome: Progressing Problem: Safety: Goal: Ability to remain free from injury will improve Outcome: Progressing Goal: Will remain free from falls Outcome: Progressing Problem: Self-Care: Goal: Ability to participate in self-care as condition permits will improve Outcome: Progressing Problem: Sensory: Goal: Pain level will decrease Outcome: Progressing Goal: Ability to develop a pain control plan will improve Outcome: Progressing Problem: Skin Integrity: Goal: Risk for impaired skin integrity will decrease Outcome: Progressing Problem: Tissue Perfusion: Goal: Risk factors for ineffective tissue perfusion will decrease Outcome: Progressing Problem: Activity: Goal: Mobility will improve Outcome: Progressing Problem: Lack of Knowledge: Goal: Understanding of ways to prevent future skin breakdown will improve Outcome: Progressing Problem: Skin Integrity: Goal: Risk for impaired skin integrity will decrease Outcome: Progressing Goal: Ability to demonstrate warm and dry skin will improve Outcome: Progressing Goal: Circulation will improve to fullest extent possible Outcome: Progressing Problem: Health Behavior: Goal: Understanding of discharge needs will improve Outcome: Progressing * Post-Procedure Note - Byron Begum MD - 12/19/2019 12:20 PM CDT Radiology Brief Post Procedure Note Attending: Ofelia Organizational Development Director: Kel Sedation/Anesthesia: Min Sedation Pre-Op/Pre-Procedure Diagnosis: Gall bladder fossa and abdominal wall abscess Post-Op/Post-Procedure Diagnosis: Same Procedure Performed: RUQ 10 Fr drain placement set to suction drain. Procedure Findings: Successful. Complications: None Estimated Blood Loss: < 30 ml Specimens: Dark red/brown fluid aspirated and sent for microbiology Condition: Stable Full report to follow. * Pre-Procedure Note - Byron Begum MD - 12/19/2019 11:24 AM CDT Radiology Long Sedation Form Indication: Gallbladder fossa abscess Planned Procedure: Drainage catheter placement Planned Sedation/Anesthesia: minimal sedation History: 69 yo M found to have gall bladder fossa abscess with spontaneous external leakage. Interventional radiology consulted for percutaneous drain placement. Patient denies significant abdominal pain, chest pain or shortness of breath. Patient describes yellow/read leakage around site. PMH/PSH: Past Medical History: Diagnosis Date ??? Atrial fibrillation (CMS/HCC) ??? Hyperlipidemia ??? Hypertension No past surgical history on file. ROS: Review of systems per HPI and otherwise all other systems are negative Allergies: Penicillins Current Meds: No outpatient medications have been marked as taking for the 12/18/19 encounter (Hospital Encounter)with Jeff Rivera MD. Physical exam: Gen: Alert, oriented, sitting in bed. Slightly hard of hearing. HEENT: EOMI CVR: Non labored breathing, regular respiratory rate. Abd: Dressing covering a defect in the right abdominal wall with yellow leakage and a small amount of blood in it. Abdomen otherwise soft, NTTP Ext: Warm and well perfused. Most Recent Vitals: Vitals: 12/19/19 0742 BP: (!) 146/106 Pulse: 108 Resp: 18 Temp: 36.5 ??C (97.7 ??F) SpO2: 98% Airway Assessment: normal Labs/Imaging: Hematology Lab History Some values may be hidden. Unless noted otherwise, only the newest values recorded on each date aredisplayed. Labs - Hematology Latest Ref Range 12/18/19 WBC 3.8 - 9.9 K/cumm 5.9 Total Hb, POC 13.0 - 17.5 g/dL 10.3 (A) Hct 38.9 - 50.3 % 30.8 (A) Plt 150 - 400 K/cumm 251 (A) Abnormal value Chem/LFT Lab History Some values may be hidden. Unless noted otherwise, only the newest values recorded on each date aredisplayed. Labs-Chem/LFT Latest Ref Range 12/18/19 Sodium 135 - 145 mmol/L 135 Creatinine 0.80 - 1.30 mg/dL 0.49 (A) Bilirubin, total 0.1 - 1.2 mg/dL 0.4 AST 10 - 50 Units/L 14 ALT 7 - 55 Units/L 14 CrCl- Actual Body Weight (Cockcroft-Gault) 157.4 (A) Abnormal value Assessment: 69 yo M found to have gall bladder fossa abscess with spontaneous external leakage. Interventional radiology consulted for percutaneous drain placement. ASA Score: 3 NPO time: after midnight Benefits, risks and alternatives of procedure and planned sedation have been discussed with the patient and/or their guest experience representative. All questions answered and they agree to proceed. * Plan of Care - Dieudonne Watkins RN - 12/18/2019 10:47 PM CDT Goals: Problem: Lack of Knowledge: Goal: Ability to state ways to decrease the risk of falls will improve Outcome: Progressing Summary: Problem: Lack of Knowledge: Goal: Ability to state ways to decrease the risk of falls will improve Outcome: Progressing documented in this encounter Plan of Treatment Not on file documented as of this encounter Procedures Procedure Name Priority Date/Time Associated Diagnosis Comments ABSCESS CATHETER INJECTION IP Routine 12/25/2019 8:55 AM CDT COVID-19 CORONAVIRUS RNA Routine 12/24/2019 11:34 AM CDT CBC WITHOUT DIFFERENTIAL Routine 12/20/2019 10:18 PM CDT MAGNESIUM Routine 12/20/2019 10:18 PM CDT COMPREHENSIVE METABOLIC PANEL Routine 12/20/2019 10:18 PM CDT US GALLBLADDER IP Routine 12/20/2019 7:31 PM CDT CBC WITHOUT DIFFERENTIAL Timed 12/20/2019 12:36 AM CDT PHOSPHORUS Timed 12/20/2019 12:36 AM CDT MAGNESIUM Timed 12/20/2019 12:36 AM CDT COMPREHENSIVE METABOLIC PANEL Timed 12/20/2019 12:36 AM CDT FLUID DRAIN SOFT TISSUE IP Routine 12/19/2019 12:05 PM CDT AEROBIC AND ANAEROBIC CULTURE AND GRAM STAIN Routine 12/19/2019 11:58 AM CDT XR CHEST 1 VIEW ED Urgent/IP Urgent 12/18/2019 10:41 PM CDT CALCIUM, IONIZED STAT 12/18/2019 10:0 6 PM CDT APTT Routine 12/18/2019 10:06 PM CDT PROTIME-INR STAT 12/18/2019 10:06 PM CDT CBC WITHOUT DIFFERENTIAL STAT 12/18/2019 10:06 PM CDT PHOSPHORUS STAT 12/18/2019 10:06 PM CDT MAGNESIUM STAT 12/18/2019 10:06 PM CDT COMPREHENSIVE METABOLIC PANEL STAT 12/18/2019 10:[address] BODY OUTSIDE CONSULT Routine 12/18/2019 9:00 PM CDT Diagnosis unknown documented in this encounter Results * IR Inject Abscess Catheter (12/25/2019 8:55 AM CDT) Anatomical Region Laterality Modality Body N/A X-Ray Angiograph y 12/25/2019 12:4 9 PM CDT Impressions 12/29/2019 12:15 PM CDT collection in the right upper quadrant. ?? Catheter was exchanged to facilitate drainage and resolution. PLAN: Continue to monitor catheter output as well as the patient's clinical condition. ?? The catheter should be flushed with 5 mL of normal saline b.i.d. If questions arise, please contact us by calling [phone]. Dictated by: Byron Begum M.D. The radiology attending physician has personally reviewed this study, and had reviewed and/or edited this written report and agrees with it. Electronically signed by: Katie Gilbert M.D. Narrative 12/29/2019 12:15 PM CDT EXAMINATION: ??DRAINAGE CATHETER EVALUATION AND EXCHANGE HISTORY: ??69-year-old male with history of gallbladder fossa abscess extending to the abdominal wall status post 10-Tunisian cope loop drain placement on 12/19/2019 now with decreased output. ??Interventional radiology consulted for drain check and possible exchange. ATTENDING PRESENCE: ??Katie Gilbert M.D., the attending radiologist, was present from the beginning to the end of the procedure. SEDATION: ??The patient did not require conscious sedation for the procedure. TECHNIQUE: ??Prior to beginning the procedure, [place] Protocol was used to confirm the patient's identity and planned procedure. Fluoroscopy time has been recorded in the electronic medical record. Maximum sterile barriers including cap, mask, hand hygiene, sterile gloves, sterile gown, large sterile drape and 2% chlorhexidine for cutaneous antisepsis were used. After obtaining a distribution manager image, the catheter was injected with dilute contrast and multiple diagnostic fluoroscopic spot images were obtained. The skin overlying the collection was sterilely prepped, draped and infiltrated with 1% buffered lidocaine. The catheter was then exchanged over a LUX[employer] guidewire for a new 10-Tunisian cope loop catheter. ??Limited contrast injection confirmed appropriate placement of the catheter. LAKHWINDER CT was obtained to assess the size of the remaining collection. The catheter was secured in place with a Prolene stitch and connected to suction drainage. ??A sterile dressing was applied. ESTIMATED BLOOD LOSS: Minimal. CONDITION: Stable DISCHARGED TO: ??Recovery and then to Inpatient unit. FINDINGS: ??Images from the catheter injection demonstrate a persistent small cavity within the anterior abdominal wall. The catheter was draining serosanguineous fluid. Images from the catheter exchange show the catheter tip centered in the right upper quadrant fluid collection. LAKHWINDER CT shows that there has been a significant decrease in the size of the collection. Procedure Note Katie Gilbert MD - 12/29/2019 EXAMINATION: DRAINAGE CATHETER EVALUATION AND EXCHANGE HISTORY: 69-year-old male with history of gallbladder fossa abscess extending to the abdominal wall status post 10-Tunisian cope loop drain placement on 12/19/2019 now with decreased output. Interventional radiology consulted for drain check and possible exchange. ATTENDING PRESENCE: Katie Gilbert M.D., the attending radiologist, was present from the beginning to the end of the procedure. SEDATION: The patient did not require conscious sedation for the procedure. TECHNIQUE: Prior to beginning the procedure, [place] Protocol was used to confirm the patient's identity and planned procedure. Fluoroscopy time has been recorded in the electronic medical record. Maximum sterile barriers including cap, mask, hand hygiene, sterile gloves, sterile gown, large sterile drape and 2% chlorhexidine for cutaneous antisepsis were used. After obtaining a distribution manager image, the catheter was injected with dilute contrast and multiple diagnostic fluoroscopic spot images were obtained. The skin overlying the collection was sterilely prepped, draped and infiltrated with 1% buffered lidocaine. The catheter was then exchanged over a [employer] guidewire for a new 10-Tunisian cope loop catheter. Limited contrast injection confirmed appropriate placement of the catheter. LAKHWINDER CT was obtained to assess the size of the remaining collection. The catheter was secured in place with a Prolene stitch and connected to suction drainage. A sterile dressing was applied. ESTIMATED BLOOD LOSS: Minimal. CONDITION: Stable DISCHARGED TO: Recovery and then to Inpatient unit. FINDINGS: Images from the catheter injection demonstrate a persistent small cavity within the anterior abdominal wall. The catheter was draining serosanguineous fluid. Images from the catheter exchange show the catheter tip centered in the right upper quadrant fluid collection. LAKHWINDER CT shows that there has been a significant decrease in the size of the collection. IMPRESSION: collection in the right upper quadrant. Catheter was exchanged to facilitate drainage and resolution. PLAN: Continue to monitor catheter output as well as the patient's clinical condition. The catheter should be flushed with 5 mL of normal saline b.i.d. If questions arise, please contact us by calling [phone]. Dictated by: Byron Begum M.D. The radiology attending physician has personally reviewed this study, and had reviewed and/or edited this written report and agrees with it. Electronically signed by: Katie Gilbert M.D. Eugene Oates MD [facility] PROCED[facility] Final Result * COVID-19 Coronavirus RNA Nasopharyngeal (12/24/2019 11:34 AM CDT) Pathologist [facility] [place] COVID-19 RNA Negative Negative [facility] Comment: Interpretive Data Testing performed by [facility] ([phone]). This test is performed using the ImmuMetrix Xpert Xpress SARS-CoV-2 assay. ??This is a real-time RT-PCR test intended for the qualitative detection of nucleic acid from the SARS-CoV-2. ??This assay has been reviewed by the FDA for Emergency Use Authorization (EUA). The performance characteristics have been verified by the [facility]. ??Additional sample types have been validated according to CLIA regulations. ??Results must be considered in the clinical context and a negative result does not rule out infection. ?? Interpretive Data last revised 2019. Nasopharyngeal 12/24/2019 11 :34 AM CDT 12/24/2019 11:51 AM CDT Narrative [facility] - 12/24/2019 12:43 PM CDT Is the patient experiencing any symptoms consistent with COVID (eg. Fever, cough, shortness of breath)?->No What is the reason for testing?->Resident of congregate living facility, e.g. snf, SNF Eugene Oates MD LAB MICROBIOLOGY - GENER AL ORDERABLES Final Result Performing Organization Address City/[facility]/ZIP Co de Phone Number [facility] Department [place] [address] * Magnesium (12/20/2019 10:18 PM CDT) Pathologist [facility] [place] Magnesium 2.0 1.4 - 2.5 mg/dL [facility] Blood specimen (specimen) 12/20/2019 10:18 PM CDT 12/20/2019 10:28 PM CDT Stephany SANDOVAL LAB BLOOD ORDERABLES Mariangel l Result Performing Organization Address City/[facility]/ZIP Co de Phone Number [facility] Department [place] [address] * (ABNORMAL) Comprehensive metabolic panel (12/20/2019 10:18 PM CDT) Sodium 138 135 - 145 mmol/L [facility] Potassium, pl 4.1 3.3 - 4.9 mmol/L [facility] Comment:Hemolyzed; Potassium value may be falsely elevated by as much as 0.3-0.5 mmol/L. Suggest redraw and reanalysis. Chloride 105 97 - 110 mmol/L [facility] CO2 26 22 - 32 mmol/L [facility] Anion gap 7 2 - 15 mmol/L [facility] BUN 5(L) 8 - 25 mg/dL [facility] Creatinine 0.48(L) 0.80 - 1.30 mg/dL [facility] Glucose 82 70 - 199 mg/dL [facility] Comment: Interpretive Data Fasting glucose >/= 126 [...] 2017. Calcium 8.4(L) 8.5 - 10.3 mg/dL [facility] Bilirubin, total 0.2 0.1 - 1.2 mg/dL [facility] Protein, pl 5.1(L) 6.5 - 8.5 g/dL [facility] Albumin 2.2(L) 3.5 - 5.0 g/dL [facility] Alk phos 95 40 - 130 Units/L [facility] ALT 12 7 - 55 Units/L [facility] AST 26 10 - 50 Units/L [facility] Comment:Hemolyzed; result ma y be falsely elevated Blood specimen (specimen) 12/20/2019 10:18 PM CDT 12/20/2019 10:28 PM CDT us Stephany SANDOVAL LAB BLOOD ORDERABLES Mariangel clifford Result [facility] Department [place] [address] * (ABNORMAL) CBC without differential (12/20/2019 10:18 PM CDT) [facility] Signature WBC 5.4 3.8 - 9.9 K/cumm [facility] Hgb 10.4(L) 13.0 - 17.5 g/dL [facility] Hct 31.5(L) 38.9 - 50.3 % [facility] Plt 266 150 - 400 K/cumm [facility] MPV 9.6 9.1 - 12.3 fL [facility] RBC 3.31(L) 4.30 - 5.80 M/cumm [facility] MCV 95.2 81.3 - 96.4 fL [facility] MCH 31.4 27.1 - 33.3 pg [facility] MCHC 33.0 32.3 - 35.7 g/dL [facility] RDW CV 14.8 11.1 - 14.9 % [facility] RDW SD 52.3(H) 35.7 - 48.1 fL [facility] NRBC abs 0.00 0.00 - 0.01 K/cumm [facility] Blood specimen (specimen) 12/20/2019 10:18 PM CDT 12/20/2019 10:28 PM CDT Stephany SANDOVAL LAB BLOOD ORDERABLES Mariangel clifford Result Performing Organization Address City/State/[facility] Co de Phone Number [facility] [place] [address] * US Gallbladder (12/20/2019 7:31 PM CDT) Anatomical Region Laterality Modality Abdomen N/A Ultrasound 12/21/2019 9:19 AM CDT Impressions 12/21/2019 9:36 AM CDT Irregular, markedly thick-walled gallbladder containing stones and sludge; pericholecystic collection with drain in place; and small amount of perihepatic fluid. ??These findings are compatible with sequelae of perforated cholecystitis. Dictated by: Any Sunn Konstantinoff, M.D. The radiology attending physician has personally reviewed this study, and had reviewed and/or edited this written report and agrees with it. Electronically signed by: Marcelino Cifuentes M.D. Narrative 12/21/2019 9:36 AM CDT EXAMINATION: ??LIMITED ABDOMINAL SONOGRAM HISTORY: ??69-year-old man with perforated cholecystitis with collection arising from the gallbladder fossa extending into the anterior abdominal wall status post percutaneous drain placement 12/19/2019. ??Preoperative examination. COMPARISON: ??Outside hospital CT 12/18/2019. FINDINGS: ?? Liver: The liver is normal in size. ??The echotexture is normal. ??The echogenicity is normal. There is no surface nodularity. No focal solid lesions are visualized. ?? Gallbladder: The gallbladder is irregular with marked wall thickening. ??There are stones and sludge within the gallbladder. There is a right upper quadrant drain in a pericholecystic collection, with a small amount of perihepatic fluid. ?? Bile Duct: There is no intrahepatic bile duct dilatation. The common duct measures 2 mm, 5 mm in the proximal and mid ducts, respectively. The distal common bile duct is obscured by bowel gas. Pancreas: The visualized portions of the head of the pancreas are normal. Procedure Note Marcelino Cifuentes MD - 12/21/2019 EXAMINATION: LIMITED ABDOMINAL SONOGRAM HISTORY: 69-year-old man with perforated cholecystitis with collection arising from the gallbladder fossa extending into the anterior abdominal wall status post percutaneous drain placement 12/19/2019. Preoperative examination. COMPARISON: Outside hospital CT 12/18/2019. FINDINGS: Liver: The liver is normal in size. The echotexture is normal. The echogenicity is normal. There is no surface nodularity. No focal solid lesions are visualized. Gallbladder: The gallbladder is irregular with marked wall thickening. There are stones and sludge within the gallbladder. There is a right upper quadrant drain in a pericholecystic collection, with a small amount of perihepatic fluid. Bile Duct: There is no intrahepatic bile duct dilatation. The common duct measures 2 mm, 5 mm in the proximal and mid ducts, respectively. The distal common bile duct is obscured by bowel gas. Pancreas: The visualized portions of the head of the pancreas are normal. IMPRESSION: Irregular, markedly thick-walled gallbladder containing stones and sludge; pericholecystic collection with drain in place; and small amount of perihepatic fluid. These findings are compatible with sequelae of perforated cholecystitis. Dictated by: Any Martin M.D. The radiology attending physician has personally reviewed this study, and had reviewed and/or edited this written report and agrees with it. Electronically signed by: Marcelino Cifuentes M.D. Stephany SANDOVAL IMG US PROCEDURES Final R esult * Phosphorus (12/20/2019 12:36 AM CDT) Pathologist [facility] [place] Phosphorus, pl 3.3 2.3 - 4.5 mg/dL [facility] Blood specimen (specimen) 12/20/2019 12:36 AM CDT 12/20/2019 1:06 AM CDT Eugene Oates MD LAB BLOOD ORDERABLES Fin al Result Performing Organization Address [facility] Co de Phone Number [facility] [place] [address] * Magnesium (12/20/2019 12:36 AM CDT) [facility] Magnesium 2.1 1.4 - 2.5 mg/dL [facility] Blood specimen (specimen) 12/20/2019 12:36 AM CDT 12/20/2019 1:06 AM CDT Eugene Oates MD LAB BLOOD ORDERABLES Fin al Result Performing Organization Address [facility] Co de Phone Number [facility] [place] [address] * (ABNORMAL) Comprehensive metabolic panel (12/20/2019 12:36 AM CDT) Pathologist [facility] [place] Sodium 136 135 - 145 mmol/L [facility] Potassium, pl 3.5 3.3 - 4.9 mmol/L [facility] Chloride 106 97 - 110 mmol/L [facility] CO2 25 22 - 32 mmol/L [facility] Anion gap 5 2 - 15 mmol/L [facility] BUN 7(L) 8 - 25 mg/dL [facility] Creatinine 0.57(L) 0.80 - 1.30 mg/dL [facility] Glucose 100 70 - 199 mg/dL [facility] Comment: Interpretive Data Fasting glucose >/= 126 [...] 2017. Calcium 8.2(L) 8.5 - 10.3 mg/dL [facility] Bilirubin, total 0.2 0.1 - 1.2 mg/dL [facility] Protein, pl 5.2(L) 6.5 - 8.5 g/dL [facility] Albumin 2.3(L) 3.5 - 5.0 g/dL [facility] Alk phos 100 40 - 130 Units/L [facility] ALT 10 7 - 55 Units/L [facility] AST 18 10 - 50 Units/L [facility] Blood specimen (specimen) 12/20/2019 12:36 AM CDT 12/20/2019 1:06 AM CDT us Eugene Oates MD LAB BLOOD ORDERABLES Fin al Result [facility] Department [place] [address] * (ABNORMAL) CBC without differential (12/20/2019 12:36 AM CDT) WBC 5.2 3.8 - 9.9 K/cumm [facility] Hgb 9.8(L) 13.0 - 17.5 g/dL [facility] Hct 30.0(L) 38.9 - 50.3 % [facility] Plt 254 150 - 400 K/cumm [facility] MPV 10.0 9.1 - 12.3 fL [facility] RBC 3.17(L) 4.30 - 5.80 M/cumm [facility] MCV 94.6 81.3 - 96.4 fL [facility] MCH 30.9 27.1 - 33.3 pg [facility] MCHC 32.7 32.3 - 35.7 g/dL [facility] RDW CV 15.0(H) 11.1 - 14.9 % [facility] RDW SD 52.9(H) 35.7 - 48.1 fL [facility] NRBC abs 0.00 0.00 - 0.01 K/cumm [facility] Blood specimen (specimen) 12/20/2019 12:36 AM CDT 12/20/2019 1:06 AM CDT Eugene Oates MD LAB BLOOD ORDERABLES Fin al Result [facility] Department [place] [address] * IR Fluid Drain Soft Tissue (12/19/2019 12:05 PM CDT) Anatomical Region Laterality Modality Body N/A X-Ray Angiograph y 12/19/2019 1:47 PM CDT Impressions 12/19/2019 4:48 PM CDT Successful image guided right upper quadrant abscess drainage. PLAN: This tube should be flushed with 10 mL of saline b.i.d. Dictated by: Byron Begum M.D. The radiology attending physician has personally reviewed this study, and had reviewed and/or edited this written report and agrees with it. Electronically signed by: Katie Gilbert M.D. Narrative 12/19/2019 4:48 PM CDT EXAMINATION: ??PERCUTANEOUS DRAINAGE (STD) HISTORY/INDICATION: ??69-year-old male with history of gallbladder fossa abscess now with right abdominal wall fluid collection. Interventional radiology consulted for drain placement. ATTENDING PRESENCE: Katie Gilbert M.D., the attending radiologist was present from the beginning to the end of the procedure. ?? SEDATION: Procedural sedation was administered under the attending physician's direction and continuous monitoring by a trained nurse specialist who was independent from those actually performing the procedure. ??Total monitored sedation time was 29 minutes. TECHNIQUE: The risks, benefits and alternatives were discussed and informed consent was obtained. ??Prior to beginning the procedure, [place] Protocol was used to confirm the patient's identity and planned procedure. ??If fluoroscopy was used, fluoroscopy time has been recorded in the electronic medical record. Maximum sterile barriers including cap, mask, hand hygiene, sterile gloves, sterile gown, large sterile drape and 2% chlorhexidine for cutaneous antisepsis were used. ?? The skin overlying the fluid collection in the right side was sterilely prepped, draped and infiltrated with 1% buffered lidocaine. The targeted collection was then accessed with a 18 gauge needle using imaging guidance which included ultrasound and fluoroscopy. Contrast was injected to confirm needle placement. ?? A guidewire was advanced and coiled within the collection before dilating the tract to ??8 Fr. ??A 10-Tunisian cope loop was then advanced over the guidewire and secured in place with a stitch of 0-Prolene. The catheter was connected to suction drainage. ??A sterile dressing was applied. A sample of the fluid was sent for culture ESTIMATED BLOOD LOSS: Minimal. CONDITION: Stable DISCHARGED TO: Recovery and then to inpatient unit. ?? FINDINGS: Images from the procedure revealed a moderate-sized, multiloculated fluid collection in the right abdominal wall, corresponding to the collection seen on prior CT. ??The fluid appeared purulent. ??An approximate volume of 10 cc was drained at the time of the procedure and sent for labs. Procedure Note Katie Gilbert MD - 12/19/2019 EXAMINATION: PERCUTANEOUS DRAINAGE (STD) HISTORY/INDICATION: 69-year-old male with history of gallbladder fossa abscess now with right abdominal wall fluid collection. Interventional radiology consulted for drain placement. ATTENDING PRESENCE: Katie Gilbert M.D., the attending radiologist was present from the beginning to the end of the procedure. SEDATION: Procedural sedation was administered under the attending physician's direction and continuous monitoring by a trained nurse specialist who was independent from those actually performing the procedure. Total monitored sedation time was 29 minutes. TECHNIQUE: The risks, benefits and alternatives were discussed and informed consent was obtained. Prior to beginning the procedure, [place] Protocol was used to confirm the patient's identity and planned procedure. If fluoroscopy was used, fluoroscopy time has been recorded in the electronic medical record. Maximum sterile barriers including cap, mask, hand hygiene, sterile gloves, sterile gown, large sterile drape and 2% chlorhexidine for cutaneous antisepsis were used. The skin overlying the fluid collection in the right side was sterilely prepped, draped and infiltrated with 1% buffered lidocaine. The targeted collection was then accessed with a 18 gauge needle using imaging guidance which included ultrasound and fluoroscopy. Contrast was injected to confirm needle placement. A guidewire was advanced and coiled within the collection before dilating the tract to 8 Fr. A 10-Tunisian cope loop was then advanced over the guidewire and secured in place with a stitch of 0-Prolene. The catheter was connected to suction drainage. A sterile dressing was applied. A sample of the fluid was sent for culture ESTIMATED BLOOD LOSS: Minimal. CONDITION: Stable DISCHARGED TO: Recovery and then to inpatient unit. FINDINGS: Images from the procedure revealed a moderate-sized, multiloculated fluid collection in the right abdominal wall, corresponding to the collection seen on prior CT. The fluid appeared purulent. An approximate volume of 10 cc was drained at the time of the procedure and sent for labs. IMPRESSION: Successful image guided right upper quadrant abscess drainage. PLAN: This tube should be flushed with 10 mL of saline b.i.d. Dictated by: Byron Begum M.D. The radiology attending physician has personally reviewed this study, and had reviewed and/or edited this written report and agrees with it. Electronically signed by: Katie Gilbert M.D. us Jeff Rivera MD [facility] PROCEDURES Final Resul t * (ABNORMAL) Aerobic and anaerobic culture and gram stain Abscess Right (12/19/2019 11:58 AM CDT) Direct Specimen Exam Stain: Moderate polymorphonuclear leukocytes seen. Moderate Gram Negative Bacilli [facility] Report Final Report: Abundant Escherichia coli * ??* ??* ??* ??* ??* ??* ??* ??* ??* ??* ??* ??* ??* ??* ??* ??* ??* ??* ??* The susceptibility pattern of this Escherichia coli indicates the possible production of an extended spectrum beta lactamase (ESBL). ??Patients infected with ESBL-producing organisms require contact isolation precautions. ??For therapeutic options for this organism, please contact infectious diseases. (.) [facility] Organism ESCHERICHIA COLI [facility] Abscess (Right) 12/19/2019 1 1:58 AM CDT 12/19/2019 2:19 PM CDT [facility]ative [facility] - 12/22/2019 10:07 AM CDT ruq Testing performed by [facility] ([phone]) Specimens submitted from normally sterile body sites [...] interpretive data was last revised on 2019. Organism Antibiotic Method Susceptibility Escherichia coli Ampicillin INTERPRETATION Resistant Escherichia coli Cefazolin INTERPRETATION Resistant Escherichia coli Gentamicin INTERPRETATION Susceptible Escherichia coli Ampicillin with Sulbactam INTERPRETAT ION Resistant Escherichia coli Trimethoprim with Sulfamethoxazole IN TERPRETATION Resistant Escherichia coli Meropenem INTERPRETATION Susceptible Escherichia coli Cefepime INTERPRETATION Resistant Escherichia coli Ciprofloxacin INTERPRETATION Resistant Escherichia coli Ceftazidime INTERPRETATION Resistant Escherichia coli Ceftriaxone INTERPRETATION Resistant Escherichia coli Amikacin INTERPRETATION Susceptible Escherichia coli Aztreonam INTERPRETATION Resistant Escherichia coli Imipenem INTERPRETATION Susceptible Escherichia coli Ertapenem INTERPRETATION Susceptible Escherichia coli Minocycline INTERPRETATION Susceptible Escherichia coli Tobramycin INTERPRETATION Resistant Escherichia coli Doxycycline INTERPRETATION Susceptible us Eugene Oates MD LAB MICROBIOLOGY - GENER AL ORDERABLES Final Result [facility] Department [place] [address] * X-ray chest 1 view (Portable) (12/18/2019 10:41 PM CDT) Anatomical Region Laterality Modality Body, Chest N/A Computed Radiogr aphy 12/19/2019 7:24 AM CDT Impressions 12/19/2019 10:58 AM CDT No prior is available for comparison. ??The lungs are clear, specifically there is no focal consolidation or pulmonary edema. ??There is no pneumothorax or pleural effusion. ??The cardiomediastinal silhouette is normal. Dictated by: Walter Ramirez The radiology attending physician has personally reviewed this study, and had reviewed and/or edited this written report and agrees with it. Electronically signed by: Abiodun Madsen M.D. Narrative 12/19/2019 10:58 AM CDT EXAMINATION: 1 view chest radiograph Procedure Note Abiodun Madsen MD - 12/19/2019 EXAMINATION: 1 view chest radiograph IMPRESSION: No prior is available for comparison. The lungs are clear, specifically there is no focal consolidation or pulmonary edema. There is no pneumothorax or pleural effusion. The cardiomediastinal silhouette is normal. Dictated by: Walter Ramirez The radiology attending physician has personally reviewed this study, and had reviewed and/or edited this written report and agrees with it. Electronically signed by: Abiodun Madsen M.D. Jeff Rivera MD IMG XR PROCEDURES Final Resul t * aPTT (12/18/2019 10:06 PM CDT) aPTT 26 25 - 37 sec DAKSHA FALCON Comment: Interpretive data Heparin therapeutic range: 60-90 seconds Range based on correlation with therapeutic heparin activity range of 0.3-0.7 units/ml. Current interpretive data was last revised on 2019. Blood specimen (specimen) 12/18/2019 10:06 PM CDT 12/18/2019 10:28 PM CDT Jeff Rivera MD LAB BLOOD ORDERABLES Final [facility]ult [facility] [place] [address] * (ABNORMAL) Protime-INR (12/18/2019 10:06 PM CDT) [facility] PT 14.7(H) 8.6 - 13.0 sec [facility] INR 1.4(H) 0.8 - 1.2 [facility] Comment: Interpretive data Oral anticoagulant therapeutic ranges: Venous thromboembolism prophylaxis or treatment: 2.0-3.0 CARDIOLOGY Standard range: 2.0-3.0 High-intensity range: 2.5-3.5 Refer to indication-specific guidelines for appropriate target ranges for prosthetic heart valve replacement. Current interpretive data was last revised on 2019. Blood specimen (specimen) 12/18/2019 10:06 PM CDT 12/18/2019 10:28 PM CDT us Jeff Rivera MD LAB BLOOD ORDERABLES Final Re sult [facility] Department [place] [address] * (ABNORMAL) CBC without differential (12/18/2019 10:06 PM CDT) [facility] WBC 5.9 3.8 - 9.9 K/cumm [facility] Hgb 10.3(L) 13.0 - 17.5 g/dL [facility] Hct 30.8(L) 38.9 - 50.3 % [facility] Plt 251 150 - 400 K/cumm [facility] MPV 9.6 9.1 - 12.3 fL [facility] RBC 3.21(L) 4.30 - 5.80 M/cumm [facility] MCV 96.0 81.3 - 96.4 fL [facility] MCH 32.1 27.1 - 33.3 pg [facility] MCHC 33.4 32.3 - 35.7 g/dL [facility] RDW CV 14.9 11.1 - 14.9 % [facility] RDW SD 52.8(H) 35.7 - 48.1 fL [facility] NRBC abs 0.00 0.00 - 0.01 K/cumm [facility] Blood specimen (specimen) 12/18/2019 10:06 PM CDT 12/18/2019 10:33 PM CDT us Jeff Rivera MD LAB BLOOD ORDERABLES Final Re sult Performing Organization Address [facility] Co de Phone Number [facility] Department [place] [address] * (ABNORMAL) Magnesium (12/18/2019 10:06 PM CDT) Magnesium 1.3(L) 1.4 - 2.5 mg/dL [facility] Blood specimen (specimen) 12/18/2019 10:06 PM CDT 12/18/2019 10:15 PM CDT us Jeff Rivera MD LAB BLOOD ORDERABLES Final Re sult Performing Organization Address [facility] de Phone Number [facility] Department [place] [address] * (ABNORMAL) Calcium, ionized (12/18/2019 10:06 PM CDT) Calcium, Ionized 4.45(L) 4.50 - 5.10 mg/dL [facility] Blood specimen (specimen) 12/18/2019 10:06 PM CDT 12/18/2019 10:15 PM CDT us Jeff Rivera MD LAB BLOOD ORDERABLES Final Re sult Performing Organization Address [facility] de Phone Number [facility] [place] [address] * Phosphorus (12/18/2019 10:06 PM CDT) Phosphorus, pl 3.6 2.3 - 4.5 mg/dL [facility] Blood specimen (specimen) 12/18/2019 10:06 PM CDT 12/18/2019 10:15 PM CDT us Jeff Rivera MD LAB BLOOD ORDERABLES Final Re sult [facility] Department [place] [address] * (ABNORMAL) Comprehensive metabolic panel (12/18/2019 10:06 PM CDT) Sodium 135 135 - 145 mmol/L [facility] Potassium, pl 3.0(L) 3.3 - 4.9 mmol/L [facility] Chloride 103 97 - 110 mmol/L [facility] CO2 24 22 - 32 mmol/L [facility] Anion gap 8 2 - 15 mmol/L [facility] BUN 7(L) 8 - 25 mg/dL [facility] Creatinine 0.49(L) 0.80 - 1.30 mg/dL [facility] Glucose 91 70 - 199 mg/dL [facility] Comment: Interpretive Data Fasting glucose >/= 126 [...] 2017. Calcium 8.5 8.5 - 10.3 mg/dL [facility] Bilirubin, total 0.4 0.1 - 1.2 mg/dL [facility] Protein, pl 5.4(L) 6.5 - 8.5 g/dL [facility] Albumin 2.2(L) 3.5 - 5.0 g/dL [facility] Alk phos 99 40 - 130 Units/L [facility] ALT 14 7 - 55 Units/L [facility] AST 14 10 - 50 Units/L [facility] Blood specimen (specimen) 12/18/2019 10:06 PM CDT 12/18/2019 10:15 PM CDT Jeff Rivera MD LAB BLOOD ORDERABLES Final Re sult [facility] Department [place] [address] * CT Body Outside Consult (12/18/2019 9:00 PM CDT) Anatomical Region Laterality Modality Body N/A Computed Tomogra phy 12/19/2019 9:08 AM CDT Impressions 12/19/2019 9:08 AM CDT Multiloculated abscess arising from the gallbladder fossa with extension to the subcutaneous tissue of the ventral abdominal wall. The findings, conclusions and recommendations within this report do not replace the initial findings, conclusions ??and recommendations made at the facility where the study was performed based upon the imaging and clinical condition at that time. ??Comparison with the prior report and clinical history is necessary. ??The provided images may or may not represent the cachil dehe source data set and thus may contain changes that may lower the accuracy of this second-opinion interpretation. Electronically signed by: Darrel Juarez M.D. Narrative 12/19/2019 9:08 AM CDT EXAMINATION: RADIOLOGY CONSULTATION ON OUTSIDE IMAGING STUDY STUDY INITIALLY PERFORMED: 12/18/2019 at [facility]. TYPE OF STUDY: Multiple CT images of the abdomen and pelvis with intravenous contrast are provided at the time of this interpretation. CONTRAST ROUTE: Contrast was administered via the intravenous route. The protocol was adequate to address the clinical question. The outside final report was not available at the time of this second opinion interpretation. TYPE OF CONSULTATION: Consult on outside imaging study with images submitted through [facility] DATE OF CONSULTATION: 12/19/2019 8:50 AM HISTORY: Gallbladder fossa abscess. This patient is reportedly status post a cholecystectomy 3 months ago. COMPARISON: None available. FINDINGS: Lung windows show likely a combination of scarring and atelectasis there is small bilateral pleural effusions. No pneumothorax. There is mild cardiomegaly with a moderate-sized pleural effusion. Coronary artery calcifications noted. Atherosclerotic calcifications of the aorta are noted. There is elevation of the right hemidiaphragm and the liver angled appearance on the coronal view (series 601, image 41/113), which may represent in part herniation. No suspicious hepatic lesion is identified. The gallbladder surgically absent. Arising from the gallbladder fossa there is a large fluid collection with rim enhancement with a component coursing towards the ventral abdominal wall involving the subcutaneous fat; this collection measures approximately 9.4 x 4.4 x 10.2 cm. Pancreas normal. Splenic calcifications in keeping with old granulomatous disease. No obstructing stones and no hydronephrosis. No adrenal masses. Hypoattenuating structures in bilateral kidneys are too small to characterize there is a large right renal cyst. Bladder normal. Colonic diverticulosis without diverticulitis. No bowel wall thickening or evidence of bowel obstruction. Appendix normal. Vascular clip is seen in the ascending colon. No free intraperitoneal gas. Calcifications of the aorta and its branches are noted. Portal vasculature patent. No lymphadenopathy in the abdomen or pelvis. There is gas seen in the subcutaneous tissues of the right ventral abdominal wall. No suspicious osseous lesions are identified. Compression deformities of the T11 and L2 vertebral bodies are likely degenerative. Procedure Note Darrel Juarez MD PhD - 12/19/2019 EXAMINATION: RADIOLOGY CONSULTATION ON OUTSIDE IMAGING STUDY STUDY INITIALLY PERFORMED: 12/18/2019 at [facility]. TYPE OF STUDY: Multiple CT images of the abdomen and pelvis with intravenous contrast are provided at the time of this interpretation. CONTRAST ROUTE: Contrast was administered via the intravenous route. The protocol was adequate to address the clinical question. The outside final report was not available at the time of this second opinion interpretation. TYPE OF CONSULTATION: Consult on outside imaging study with images submitted through [facility] DATE OF CONSULTATION: 12/19/2019 8:50 AM HISTORY: Gallbladder fossa abscess. This patient is reportedly status post a cholecystectomy 3 months ago. COMPARISON: None available. FINDINGS: Lung windows show likely a combination of scarring and atelectasis there is small bilateral pleural effusions. No pneumothorax. There is mild cardiomegaly with a moderate-sized pleural effusion. Coronary artery calcifications noted. Atherosclerotic calcifications of the aorta are noted. There is elevation of the right hemidiaphragm and the liver angled appearance on the coronal view (series 601, image 41/113), which may represent in part herniation. No suspicious hepatic lesion is identified. The gallbladder surgically absent. Arising from the gallbladder fossa there is a large fluid collection with rim enhancement with a component coursing towards the ventral abdominal wall involving the subcutaneous fat; this collection measures approximately 9.4 x 4.4 x 10.2 cm. Pancreas normal. Splenic calcifications in keeping with old granulomatous disease. No obstructing stones and no hydronephrosis. No adrenal masses. Hypoattenuating structures in bilateral kidneys are too small to characterize there is a large right renal cyst. Bladder normal. Colonic diverticulosis without diverticulitis. No bowel wall thickening or evidence of bowel obstruction. Appendix normal. Vascular clip is seen in the ascending colon. No free intraperitoneal gas. Calcifications of the aorta and its branches are noted. Portal vasculature patent. No lymphadenopathy in the abdomen or pelvis. There is gas seen in the subcutaneous tissues of the right ventral abdominal wall. No suspicious osseous lesions are identified. Compression deformities of the T11 and L2 vertebral bodies are likely degenerative. IMPRESSION: Multiloculated abscess arising from the gallbladder fossa with extension to the subcutaneous tissue of the ventral abdominal wall. The findings, conclusions and recommendations within this report do not replace the initial findings, conclusions and recommendations made at the facility where the study was performed based upon the imaging and clinical condition at that time. Comparison with the prior report and clinical history is necessary. The provided images may or may not represent the cachil dehe source data set and thus may contain changes that may lower the accuracy of this second-opinion interpretation. Electronically signed by: Darrel Juarez M.D. [facility] CT PROCEDURES Final Re sult documented in this encounter Visit Diagnoses Diagnosis Cholecystitis- Primary Cholecystitis, unspecified Diagnosis unknown Intra-abdominal abscess (CMS/HCC) (HCC) Peritoneal abscess documented in this encounter Administered Medications Inactive Administered Medications - up to 3 most recent administrations Medication Order MAR Action Action Date Dose Rate Site acetaminophen (TYLENOL) tablet 1,000 mg 1,000 mg, oral, Every 6 hours PRN, 1st line for pain, Starting on 12/20/19 at 0545 aspirin enteric coated tablet 325 mg 325 mg, oral, Daily, First dose on 12/21/19 at 0900, Do not crush, chew, cut, dissolve, open or otherwise manipulate tablet/capsule. Given 12/28/2019 7:43 AM CDT 325 mg Given 12/27/2019 8:25 AM CDT 325 mg Given 12/26/2019 10:37 AM CDT 325 mg carvediloL (COREG) tablet 6.25 mg 6.25 mg, oral, 2 times daily with meals (bkfst, dinner), First dose on Sat12/20/19 at 0800 Given 12/20/2019 5:30 PM CDT 6.25 mg Given 12/20/2019 9:08 AM CDT 6.25 mg cefepime (MAXIPIME) 2,000 mg/20 mL in sterile water (premix) 2,000 mg 2,000 mg, intravenous, at 40 mL/hr, Administer over 30 Minutes, Every 24 hours scheduled, First dose on Sat12/18/19 at 2215, Indications: Abdominal/Pelvic InfectionIndications:Abdominal/Pe lvic Infection [facility] 12/19/2019 12:45 AM CDT 2,000 mg 40 mL/hr cefepime (MAXIPIME) 2,000 mg/20 mL in sterile water (premix) 2,000 mg 2,000 mg, intravenous, at 40 mL/hr, Administer over 30 Minutes, Every 8 hours scheduled, First dose (after last modification) on 12/19/19 at 0945, Indications: Abdominal/Pelvic InfectionIndications:Abdominal/Pe lvic Infection [facility] 12/21/2019 8:35 AM CDT 2,000 mg 40 mL/hr New Bag 12/21/2019 1:47 AM CDT 2,000 mg 40 mL/hr New Bag 12/20/2019 5:30 PM CDT 2,000 mg 40 mL/hr dilTIAZem (CARDIZEM) tablet 60 mg 60 mg, oral, 4 times daily, First dose on Sat12/18/19 at 2230 Given 12/20/2019 9:45 PM CDT 60 mg Given 12/20/2019 5:30 PM CDT 60 mg Given 12/20/2019 9:08 AM CDT 60 mg dilTIAZem XR (CARDIZEM CD,DILACOR XR) 24 hour capsule 240 mg 240 mg, oral, Daily, First dose on Sat12/21/19 at 0900, Do not crush, chew, cut, dissolve, open or otherwise manipulate tablet/capsule. Given 12/25/2019 9:52 AM CDT 240 mg Given 12/24/2019 8:23 AM CDT 240 mg Given 12/23/2019 8:05 AM CDT 240 mg dilTIAZem XR (CARDIZEM CD,DILACOR XR) 24 hour capsule 360 mg 360 mg, oral, Daily, First dose (after last modification) on 12/26/19 at 0900, Do not crush, chew, cut, dissolve, open or otherwise manipulate tablet/capsule. Given 12/28/2019 7:42 AM CDT 360 mg Given 12/27/2019 8:25 AM CDT 360 mg Given 12/26/2019 10:37 AM CDT 360 mg enoxaparin (LOVENOX) syringe 40 mg 40 mg, subcutaneous, Daily (for enoxaparin), First dose on 12/19/19 at 2100, Indications: Deep Vein Thrombosis PreventionIndications:Deep Vein Thrombosis Prevention Given 12/27/2019 8:23 PM CDT 40 mg Left Lower Abdomen Given 12/26/2019 8:25 PM CDT 40 mg Le ft Lower Abdomen Given 12/25/2019 10:25 PM CDT 40 mg R ight Lower Abdomen fentaNYL (SUBLIMAZE) preservative free injection intravenous, Code/trauma/sedation medication, Starting on 12/19/19 at 1153 Given 12/19/2019 11:53 AM CDT 50 mcg folic acid (FOLVITE) tablet 1 mg 1 mg, oral, Daily, First dose on 12/21/19 at 0900 Given 12/28/2019 7:43 AM CDT 1 mg Given 12/27/2019 8:25 AM CDT 1 mg Given 12/26/2019 10:37 AM CDT 1 mg iothalamate meglumine (CONRAY) 60 % injection Code/trauma/sedation medication, Starting on 12/19/19 at 1209 Given 12/19/2019 12:09 PM CDT 10 mL levalbuterol (XOPENEX) 1.25 mg/3 mL nebulizer solution 1.25 mg 1.25 mg, nebulization, Every 6 hours PRN (respiratory care faculty), wheezing, Starting on 12/21/19 at 1115 lidocaine PF (XYLOCAINE) 10 mg/mL (1 %) preservative free injection Code/trauma/sedation medication, Starting on 12/19/19 at 1155, Intra-Procedure (IR), Indications: Administration of Local AnesthesiaIndications:Administration of Local Anesthesia Given 12/19/2019 11:55 AM CDT 10 mL magnesium oxide (MAG-OX) tablet 400 mg 400 mg, oral, Daily, First dose on Sat12/21/19 at 0900, 1 tablet = Magnesium oxide 400 mg = 241.3 mg elemental magnesium, Indications: hypomagnesemiaIndications:hypomagnesemia Given 12/28/2019 7:43 AM CDT 400 mg Given 12/27/2019 8:25 AM CDT 400 mg Given 12/26/2019 10:37 AM CDT 400 mg magnesium sulfate 4 g/100 mL in water (premix) 4 g 4 g, intravenous, Administer over 90 Minutes, Once, On 12/19/19 at 0015, For 1 dose New Bag 12/19/2019 1:40 AM CDT 4 g meropenem (MERREM) 1,000 mg/110 mL in sodium chloride 0.9% (premix) 1,000 mg 1,000 mg, intravenous, at 220 mL/hr, Administer over 30 Minutes, Every 8 hours scheduled, First dose (after last reorder) on Sat12/21/19 at 1600, Indications: perforated cholecystitisIndications:perforat ed cholecystitis New Bag 12/28/2019 7:43 AM CDT 1,000 mg 220 mL/hr New Bag 12/27/2019 11:52 PM CDT 1,000 mg 220 mL/hr New Bag 12/27/2019 5:54 PM CDT 1,000 mg 220 mL/hr metoprolol (LOPRESSOR) injection 5 mg 5 mg, intravenous, Administer over 1 Minutes, Every 6 hours scheduled, First dose on 12/19/19 at 0000 Given 12/20/2019 5:40 AM CDT 5 mg Given 12/20/2019 1:26 AM CDT 5 mg Given 12/19/2019 5:17 PM CDT 5 mg metoprolol tartrate (LOPRESSOR) immediate release tablet 25 mg 25 mg, oral, 2 times daily, First dose on Sat12/21/19 at 0900 Given 12/25/2019 9:53 AM CDT 25 mg Given 12/24/2019 9:25 PM CDT 25 mg Given 12/24/2019 8:22 AM CDT 25 mg metoprolol tartrate (LOPRESSOR) immediate release tablet 50 mg 50 mg, oral, 2 times daily, First dose (after last modification) on Sat12/25/19 at 2100 Given 12/28/2019 7:42 AM CDT 50 mg Given 12/27/2019 8:24 PM CDT 50 mg Given 12/27/2019 8:25 AM CDT 50 mg metroNIDAZOLE (FLAGYL) 500 mg/100 mL in sodium chloride (premix) 500 mg 500 mg, intravenous, at 200 mL/hr, Administer over 30 Minutes, Once, On Sat12/18/19 at 2230, For 1 dose, Room temperature only, Indications: Abdominal/Pelvic InfectionIndications:Abdominal/Pel kaleigh Infection New 12/19/2019 12:45 AM CDT 500 mg 200 mL/hr metroNIDAZOLE (FLAGYL) 500 mg/100 mL in sodium chloride (premix) 500 mg 500 mg, intravenous, at 200 mL/hr, Administer over 30 Minutes, Every 8 hours scheduled, First dose on Sat12/19/19 at 0815, Room temperature only, Indications: Abdominal/Pelvic InfectionIndications:Abdominal/Pel kaleigh Infection New 12/21/2019 8:59 AM CDT 500 mg 200 mL/hr New Bag 12/21/2019 1:46 AM CDT 500 mg 200 mL/hr 12/20/2019 5:30 PM CDT 500 mg 200 mL/hr midazolam (VERSED) preservative free injection intravenous, Administer over 2 Minutes, Code/trauma/sedation medication, Starting on Sat12/19/19 at 1152, Intra-Procedure (IR) Given 12/19/2019 11:52 AM CDT 1 mg ondansetron ODT (ZOFRAN-ODT) disintegrating tablet 4 mg 4 mg, oral, Every 4 hours PRN, nausea, vomiting, Starting on 12/20/[address] (PROTONIX) extended release tablet 40 mg 40 mg, oral, Daily, First dose on 12/21/19 at 0900, Do not crush, chew, cut, dissolve, open or otherwise manipulate tablet/capsule., Indications: Treatment of Non-Bleeding Gastric DisorderIndications:Treatment of Non-Bleeding Gastric Disorder Given 12/28/2019 7:43 AM CDT 40 mg Given 12/27/2019 8:25 AM CDT 40 mg Given 12/26/2019 10:37 AM CDT 40 mg polyethylene glycol (MIRALAX) packet 17 g 17 g, oral, Daily, First dose on Sat12/21/19 at 0900, Indications: constipationIndications:constipati on Given 12/28/2019 7:43 AM CDT 17 g potassium chloride (KAYCIEL) 1.3 mEq/mL oral liquid 40 mEq 40 mEq, feeding tube, Once, On 12/20/19 at 0630, For 1 dose, Recommend to dilute each 15 mL with at least 6 ounces of water or juice prior to administration. Given 12/20/2019 6:07 AM CDT 40 mEq potassium chloride 20 mEq/260 mL in sodium chloride 0.9% (premix) 20 mEq 20 mEq, intravenous, Administer over 2 Hours, Once, On 12/19/19 at 0415, For 1 dose, Total dose = 60 mEq. Start immediately after first potassium chloride infusion ends., Indications: hypokalemiaIndications:hypokalemia New Bag 12/19/2019 8:17 AM CDT 20 mEq potassium chloride 40 mEq/520 mL in sodium chloride 0.9% (premix) 40 mEq 40 mEq, intravenous, at 130 mL/hr, Administer over 4 Hours, Once, On 12/19/19 at 0015, For 1 dose, Total dose = 60 mEq, Indications: hypokalemiaIndications:hypokalemia New Bag 12/19/2019 1:40 AM CDT 40 mEq 130 mL/hr QUEtiapine (SEROquel) tablet 12.5 mg 12.5 mg, oral, Nightly, First dose on Sat12/21/19 at 2100 Given 12/27/2019 8:23 PM CDT 12.5 mg Given 12/26/2019 8:25 PM CDT 12.5 mg Given 12/25/2019 10:25 PM CDT 12.5 mg sodium chloride 0.9% 0.9% infusion - ADS Override Pull Starting on 12/19/19 at 1052, For 1 dose, Created by cabinet override sodium chloride 0.9% flush 0.5-20 mL 0.5-20 mL, intra-catheter, Every 8 hours scheduled, First dose on Sat12/18/19 at 2200, Flush volume based on line type and size. Given 12/25/2019 5:34 AM CDT 10 mL Given 12/24/2019 9:28 PM CDT 10 mL Given 12/23/2019 8:25 PM CDT 10 mL sodium chloride 0.9% flush 0.5-20 mL 0.5-20 mL, intra-catheter, As needed, line care, Starting on Sat12/18/19 at 2100, Flush volume based on line type and size. Flush before and after each use. sodium chloride 0.9% flush 0.5-20 mL 0.5-20 mL, intra-catheter, Every 8 hours scheduled, First dose on 12/19/19 at 1545, Pre-Procedure (IR), Flush volume based on line type and size. Given 12/26/2019 6:17 AM CDT 10 mL Given 12/25/2019 10:26 PM CDT 10 mL Given 12/24/2019 6:35 AM CDT 10 mL sodium chloride 0.9% flush 0.5-20 mL 0.5-20 mL, intra-catheter, As needed, line care, Starting on 12/19/19 at 1503, Pre-Procedure (IR), Flush volume based on line type and size. Flush before and after each use. sodium chloride 0.9% infusion 30 mL/hr, intravenous, Continuous, Starting on 12/19/19 at 1545, Pre-Procedure (IR), Please discontinue saline infusion at the end of the IR procedure New Bag 12/19/2019 10:55 AM CDT 500 mL thiamine (VITAMIN B1) tablet 100 mg 100 mg, oral, Daily, First dose on 12/21/19 at 0900 Given 12/28/2019 7:43 AM CDT 100 mg Given 12/27/2019 8:25 AM CDT 100 mg Given 12/26/2019 10:37 AM CDT 100 mg documented in this encounter Discontinued Medications Medication Sig Discontinue Reason Start Date End Da te lansoprazole (PREVACID) 30 mg capsule Take 30 mg by mouth daily Alternate therapy 12/21/2019 carvediloL (COREG) 12.5 mg tablet Take 12.5 mg by mouth 2 (two) times a day with meals Alternate therapy 12/21/2019 olmesartan-hydrochloro thiazide (BENICAR HCT) 40-12.5 mg per tablet Take 1 tablet by mouth daily Alternate therapy 12/21/2019 pravastatin (PRAVACHOL) 40 mg tablet Take 40 mg by mouth daily Therapy completed 12/21/2019 predniSONE (DELTASONE) 20 mg tablet Take 20 mg by mouth daily 12/21/2019 metoprolol tartrate (LOPRESSOR) 25 mg immediate release tablet Take 1 tablet (25 mg total) by mouth 2 (two) times a day Stop Taking at Discharge 12/23/2019 12/28/2019 potassium chloride ER (KLOR-CON) 10 mEq CR tablet Take 40 mEq by mouth 2 (two) times a day Stop Taking at Discharge 12/28/2019 enoxaparin (LOVENOX) 80 mg/0.8 mL syringe Inject 80 mg under the skin every 12 (twelve) hours Stop Taking at Discharge 12/28/2019 metoprolol (LOPRESSOR) 100 mg tablet Take 100 mg by mouth 2 (two) times a day Stop Taking at Discharge 12/28/2019 documented as of this encounter Historical Medications * This list may reflect changes made after this encounter. metoprolol (LOPRESSOR) 100 mg tablet Take 100 mg by mouth 2 (two) times a day 0 magnesium oxide (MAG-OX) 400 mg (241.3 mg elemental magnesium) tabletIndication s:hypomagnesemia Take 400 mg by mouth daily 0 QUEtiapine (SEROquel) 25 mg tablet Take 12.5 mg by mouth nightly 0 levalbuterol (XOPENEX) 1.25 mg/3 mL nebulizer solution Take 1.25 mg by nebulization as needed for shortness of breath 2 polyethylene glycol (MIRALAX) 17 gram packetIndication s:constipation Take 17 g by mouth daily 1 omeprazole (PriLOSEC) 20 mg capsule Take 20 mg by mouth daily 0 multivit-mineral -iron-lutein tablet Take by mouth 0 aspirin 325 mg enteric coated tablet Take 325 mg by mouth daily 0 enoxaparin (LOVENOX) 80 mg/0.8 mL syringe Inject 80 mg under the skin every 12 (twelve) hours 0 added in this encounter Active and Recently Administered Medications Times are shown in CDT. Scheduled Medication Order 12/26/2019 12/27/2019 12/28/2019 aspirin enteric coated tablet 325 mg 325 mg, oral, Daily, First dose on 12/21/19 at 0900, Do not crush, chew, cut, dissolve, open or otherwise manipulate tablet/capsule. 1037 (Given - Provider: Irma Calles RN) 0825 (Given - Provider: Kodak Gonzalez RN) 0743 (Given - Provider: Prosper Hinojosa RN) dilTIAZem XR (CARDIZEM CD,DILACOR XR) 24 hour capsule 360 mg 360 mg, oral, Daily, First dose (after last modification) on 12/26/19 at 0900, Do not crush, chew, cut, dissolve, open or otherwise manipulate tablet/capsule. 1037 (Given - Provider: Irma Calles RN) 0825 (Given - Provider: Kodak Gonzalez RN) 0742 (Given - Provider: Prosper Hinojosa RN) enoxaparin (LOVENOX) syringe 40 mg 40 mg, subcutaneous, Daily (for enoxaparin), First dose on 12/19/19 at 2100, Indications: Deep Vein Thrombosis Prevention 2024 (Given - Provider: Trisha Amezcua, GAURAV) 2022 (Given - Provider: Trisha Amezcua RN) folic acid (FOLVITE) tablet 1 mg 1 mg, oral, Daily, First dose on Sat12/21/19 at 0900 1037 (Given - Provider: Irma Calles RN) 0825 (Given - Provider: Kodak Gonzalez RN) 0743 (Given - Provider: Prosper Hinojosa RN) magnesium oxide (MAG-OX) tablet 400 mg 400 mg, oral, Daily, First dose on Sat12/21/19 at 0900, 1 tablet = Magnesium oxide 400 mg = 241.3 mg elemental magnesium, Indications: hypomagnesemia 1037 (Given - Provider: Irma Calles RN) 0825 (Given - Provider: Kodak Gonzalez RN) 0743 (Given - Provider: Prosper Hinojosa RN) meropenem (MERREM) 1,000 mg/110 mL in sodium chloride 0.9% (premix) 1,000 mg 1,000 mg, intravenous, at 220 mL/hr, Administer over 30 Minutes, Every 8 hours scheduled, First dose (after last reorder) on Sat12/21/19 at 1600, Indications: perforated cholecystitis 0045 (New Bag - Provider: Jane Hager RN)1036 (New Bag - Provider: Irma Calles RN)1708 (New Bag - Provider: Irma Calles RN)2340 (New Bag - Provider: Trisha Amezcua, GAURAV) 0825 (New Bag - Provider: Kodak Gonzalez, GAURAV)1754 (New Bag - Provider: Kodak Gonzalez RN)2352 (New Bag - Provider: Trisha Amezcua RN) 0743 (New Bag - Provider: Prosper Hinojosa RN)1600 (Due - Provider: Automatic Transfer Provider) metoprolol tartrate (LOPRESSOR) immediate release tablet 50 mg 50 mg, oral, 2 times daily, First dose (after last modification) on Sat12/25/19 at 2100 1037 (Given - Provider: Irma Calles RN)2025 (Given - Provider: Trisha Amezcua RN) 0825 (Given - Provider: Kodak Gonzalez, GAURAV)2024 (Given - Provider: Trisha Amezcua RN) 0742 (Given - Provider: Prosper Hinojosa RN) pantoprazole DR (PROTONIX) extended release tablet 40 mg 40 mg, oral, Daily, First dose on Sat12/21/19 at 0900, Do not crush, chew, cut, dissolve, open or otherwise manipulate tablet/capsule., Indications: Treatment of Non-Bleeding Gastric Disorder 1037 (Given - Provider: Irma Calles RN) 0825 (Given - Provider: Kodak Gonzalez RN) 0743 (Given - Provider: Prosper Hinojosa RN) polyethylene glycol (MIRALAX) packet 17 g 17 g, oral, Daily, First dose on Sat12/21/19 at 0900, Indications: constipation 1038 (Not Given - Provider: Irma Calles RN - Reason: Patient/family refused) 0825 (Not Given - Provider: Kodak Gonzalez RN - Reason: Patient/family refused) 0743 (Given - Provider: Prosper Hinojosa RN) QUEtiapine (SEROquel) tablet 12.5 mg 12.5 mg, oral, Nightly, First dose on 12/21/19 at 2100 2024 (Given - Provider: Trisha Amezcua RN) 2022 (Given - Provider: Trisha Amezcua RN) sodium chloride 0.9% flush 0.5-20 mL 0.5-20 mL, intra-catheter, Every 8 hours scheduled, First dose on Sat12/18/19 at 2200, Flush volume based on line type and size. 0611 (Canceled Entry - Provider: Jane Hager RN)153 (Not Given - Provider: Irma Calles RN - Reason: Other)2024 (Not Given - Provider: Trisha Amezcua RN - Reason: Other) 0600 (Due - Provider: Automatic Transfer Provider)1540 (Not Given - Provider: Kodak Gonzalez RN - Reason: Other)2023 (Not Given - Provider: Trisha Amezcua RN - Reason: Other) 0600 (Due - Provider: Automatic Transfer Provider)1425 (Not Given - Provider: Prosper Hinojosa RN - Reason: Other) sodium chloride 0.9% flush 0.5-20 mL 0.5-20 mL, intra-catheter, Every 8 hours scheduled, First dose on Sat12/19/19 at 1545, Pre-Procedure (IR), Flush volume based on line type and size. 0617 (Given - Provider: Jane Hager RN)1530 (Not Given - Provider: Irma Calles RN - Reason: Other)2024 (Not Given - Provider: Trisha Amezcua RN - Reason: Other) 0600 (Due - Provider: Automatic Transfer Provider)1540 (Not Given - Provider: Kodak Gonzalez RN - Reason: Other)2024 (Not Given - Provider: Trisha Amezcua RN - Reason: Other) 0600 (Due - Provider: Automatic Transfer Provider)1425 (Not Given - Provider: Prosper Hinojosa RN - Reason: Other) thiamine (VITAMIN B1) tablet 100 mg 100 mg, oral, Daily, First dose on 12/21/19 at 0900 1037 (Given - Provider: Irma Calles, RN) 0825 (Given - Provider: Kodak Gonzalez RN) 0743 (Given - Provider: Prosper Hinojosa RN) PRN Medication Order 12/26/2019 12/27/2019 12/28/2019 acetaminophen (TYLENOL) tablet 1,000 mg 1,000 mg, oral, Every 6 hours PRN, 1st line for pain, Starting on 12/20/19 at 0545 levalbuterol (XOPENEX) 1.25 mg/3 mL nebulizer solution 1.25 mg 1.25 mg, nebulization, Every 6 hours PRN (respiratory care faculty), wheezing, Starting on 12/21/19 at 1115 ondansetron ODT (ZOFRAN-ODT) disintegrating tablet 4 mg 4 mg, oral, Every 4 hours PRN, nausea, vomiting, Starting on 12/20/19 at 0545 sodium chloride 0.9% flush 0.5-20 mL 0.5-20 mL, intra-catheter, As needed, line care, Starting on Sat12/18/19 at 2100, Flush volume based on line type and size. Flush before and after each use. sodium chloride 0.9% flush 0.5-20 mL 0.5-20 mL, intra-catheter, As needed, line care, Starting on 12/19/19 at 1503, Pre-Procedure (IR), Flush volume based on line type and size. Flush before and after each use. documented in this encounter Orders Medications Ordered That Bimal ht Not Have Been Administered Count Last Ordered Date First Ordered Date levalbuterol (XOPENEX) 1.25 mg/3 mL nebulizer solution 1.25 mg 3 12/21/2019 meropenem (MERREM) 1,000 mg/ 110 mL in sodium chloride 0.9% (premix) 1,000 mg 1 12/21/2019 acetaminophen (TYLENOL) tablet 1,000 mg 1 0 12/20/2019 ondansetron ODT (ZOFRAN-ODT) disintegrating tablet 4 mg 1 12/20/2019 sodium chloride 0.9% flush 0.5-20 mL 2 12/0712/18/2019 dilTIAZem (CARDIZEM) tablet 90 mg 1 020 heparin 5,000 unit/mL inject ion 5,000 Units 1 12/18/2019 Nursing Count Last Ordered Date First Orde red Date ASSESS 1 12/25/2019 NURSING COMMUNICATION 1 12/25/2019 [employer] FUN[employer] DIRECTOR TO OR 1 12/25/2019 Consult Count Last Ordered Date First Orde red Date CONSULT TO WOUND CARE 1 12/19/2019 documented in this encounter Additional Health Concerns Infection Onset Date Last Indicated Resolved Time MDR gram neg/ESBL Comment:06/16/2021 IP Review - Pt with scrotal abscess, but is not actively draining (last documented draining on 06/14). Pt remains intubated so requires trach aspirate for isolation discontinuation. Provider notified. Amanda Walker RN 12/19/2019 12/19/2019 COVID: Suspected 12/24/2019 12/24/2019 12/24/2019 12:44 PM CDT documented as of this encounter Care Teams Protohistorian Relationship Specialty Start Date End Date Jean-Claude Crawford MD [address] [facility] [address] [place] [address] PCP - General Family Medicine 08/18/19 04/11/20 documented as of this encounter
--- OUTSIDE RECORDS SUMMARY | 2024-04-08 10:39 | XMS_ITS | Encounter Summary ---
Author Organization [facility] Healthcare Address [address] [place] [address] Care Team Providers Care Chemical Worker Name Role Phone Jean-Claude Crawford MD Primary Care Provider Encounter Details Date Type Department Care Team (Late st Contact Info) Description 12/30/2019 Telephone [facility] Radiology [address] [place] [address] Taryn Herrera RN Social History Tobacco Use Types Packs/Day Years Used Date Smoking Tobacco: Every Day Cigarettes Smokeless Tobacco: Never Alcohol Use Standard Drinks/Week Comments Yes 0 (1 standard drink = 0.6 oz pur e alcohol) limited Sex and Gender Information Value Date Recorded Sex Assigned at Not on file 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: No documented in this encounter Plan of Treatment [...] documented as of this encounter Care Teams Chemical Worker Relationship Specialty Start Date End Date Jean-Claude Crawford MD [address] [address] PCP - General Family Medicine 08/18/19 04/11/20 documented as of this encounter
--- OUTSIDE RECORDS SUMMARY | 2024-04-08 10:39 | XMS_ITS | Encounter Summary ---
Author Organization [facility] Healthcare Address [address] [place] [address] Care Team Providers Care Deckhand Oyster Dredge Name Role Phone Jean-Claude Crawford MD Primary Care Provider Reason for Referral * Diagnostic Imaging (Routine) - Closed Specialty Diagnoses / Procedures Referred By Contac t Referred To Contact Radiology Diagnoses Intra-abdominal abscess (CMS/HCC) (HCC) Procedures IR Cholangiogram Through Existing Catheter Miladys Jamison PA Phone: tel: fax: [address] [phone] Referral ID Status Reason Start Date Expiration Date Visits Re quested Visits Authorized [id number] Closed 01/15/2020 02/13/2021 1 1 * Diagnostic Imaging (Routine) - Closed Specialty Diagnoses / Procedures Referred By Contac t Referred To Contact Radiology Diagnoses Intra-abdominal abscess (CMS/HCC) (HCC) Procedures IR Inject Abscess Catheter Rui Bonilla MD Phone: tel: fax: [address] [phone] Referral ID Status Reason Start Date Expiration Date Visits Re quested Visits Authorized [id number] Closed 01/04/2020 02/02/2021 1 1 Reason for Visit * Diagnostic Imaging (Routine) - Closed Specialty Diagnoses / Procedures Referred By Contac t Referred To Contact Radiology Diagnoses Intra-abdominal abscess (CMS/HCC) (HCC) Procedures IR Inject Abscess Catheter Rui Bonilla MD Phone: tel: fax: [address] [phone] Referral ID Status Reason Start Date Expiration Date Visits Re quested Visits Authorized [id number] Closed 01/04/2020 02/02/2021 1 1 Encounter Details Date Type Department Care Team (Late st Contact Info) Description 01/15/2020 9:21 AM CDT - 01/15/2020 10:47 AM CDT Hospital Encounter 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 Gender Identity Not on file Sexual Orientation Not on file documented as of this encounter Last Filed Vital Signs Vital Sign Reading Time Taken Comments Blood Pressure 149/92 01/15/2020 10:30 AM CDT Pulse 83 01/15/2020 10:30 AM CDT Temperature 36.6 ??C (97.9 ??F) 01/15/2020 10:30 AM C DT Respiratory Rate 15 01/15/2020 10:30 AM CDT Oxygen Saturation 100% 01/15/2020 10:30 AM CDT Inhaled Oxygen Concentration - - Weight - - Height - - Body Mass Index - - documented in this encounter Discharge Diagnoses Diagnosis Encounter for fitting and adjustment of non-vascular catheter - ENCOUNTER FOR FITTING AND ADJUSTMENT OF NON-VASCULAR CATHETER Peritoneal abscess (CMS/HCC) (HCC) - PERITONEAL ABSCESS Peritoneal abscess documented in this encounter Discharge Instructions * Discharge Instructions* Miladys Jamison PA - 01/15/2020 10:23 AM CDT Interventional Radiology Outpatient Discharge Instructions/Note Diagnosis: cholecystitis Procedure: drain check Limitations: [] No lifting greater than 5 pounds with [] Right [] Left arm for 7 days. [] You received medication that may affect your judgement. ?? Stay with a responsible person today. ?? Do not drive, operate machinery, make any legal or important decisions, or drink alcohol until tomorrow. ?? No smoking unless another adult is present. Other Diet: You may resume your previous diet. Medication: [x] Usual medications; check with your regular doctor for any questions. Do not take any new pain medicine, sleeping pills or sedatives unless approved by your doctor. [] Prescriptions given for: Procedure Site Care: [] teaching sheet given [] Skin glue was used to close your incision. See teaching sheet. [x] Keep site clean and dry. [x] You may shower tomorrow. [] Change the dressing daily and if it becomes wet or dirty. [x] Cover entire area with plastic and tape down edges before showering to keep site clean and dry. [] The suture at your dialysis access site may be removed by the dialysis staff on ___/___/___ (date). Drainage Tube Care: [] Flush tube with [] 5ml Normal Saline [] 10 ml Normal Saline [] Other: [] Flush tube [] once a day [] Other: [] Record drainage output every day. [] Your tube is capped. Uncap the tube after or if severe pain or fever develops. (Please see teaching sheet). [] Call Interventional Radiology if there is leakage around the tube or the tube stops draining. To contact an Interventional Radiologist at [facility] call [phone] Saturday through Saturday from 7:30am-4:30pm. At all other times call [phone] and ask that the Interventional Radiologist be paged. To contact an Interventional Radiologist at [facility] call [phone] Saturday through Saturday from 7:30am-3:30pm. Special instructions: Please call Interventional Radiology for any procedure related questions or problems including: ?? Extreme swelling or bruising at the site. ?? Unusual drainage or bleeding from procedure site. ?? Fever of 101.5 F for more than 24 hours. ?? Severe procedure related pain. Follow up care: [] Return to Interventional Radiology on at Please come to: [] 3rd Floor [facility] [] 4th floor [facility] [] [facility] [] [facility] Please call [phone] to schedule a follow up appointment. You need to return in documented in this encounter Medications at Time of Discharge cholecalciferol (VITAMIN D-3) 5,000 unit tabletIndications:V itamin D Deficiency Take 1 tablet (5,000 Units total) by mouth every other day acetaminophen 500 mg capsule Take 2 capsules [...] day 60 tablet 11 0 02/22/20 20 mbiswxnu-xsnergo-um on-lutein tablet Take by mouth 02/21 20 [...] or self care documented in this encounter Nursing Notes * Sharonda John RN - 01/15/2020 10:06 AM CDT Fluids verified and poured to table * Sharonda John RN - 01/15/2020 10:03 AM CDT Patient placed on procedure table, comfort and safety measures in place. * Sharonda John RN - 01/15/2020 10:03 AM CDT Patients ID and allergies verified. documented in this encounter Miscellaneous Notes * Pre-Procedure Note - Miladys Jamison PA - 01/15/2020 9:56 AM CDT Radiology Procedure Plan Indication: perforated cholecystitis c/b gallbladder fossa/abdominal wall abscess s/p drainage catheter placement, last drain exchange was on 01/04/20 without sedation. Output has been about 30ml or less for last 3 days per documentation. Planned Procedure: Drain check, possible exchange, local only documented in this encounter Plan of Treatment Not on file documented as of this encounter Procedures Procedure Name Priority Date/Time Associated Diagnosis Comments ABSCESS CATHETER INJECTION Schedule Routine, Read Routine (OP Routine) 01/15/2020 10:20 AM CDT Intra-abdominal abscess (CMS/HCC) documented in this encounter Results * IR Cholangiogram Through Existing Catheter (02/04/2020 10:52 AM CDT) Anatomical Region Laterality Modality Body N/A Radio Fluoroscop y 02/04/2020 2:01 PM CDT Impressions 02/04/2020 3:55 PM CDT Resolution of gallbladder fossa abscess cavity. ??The catheter was removed. ?? PLAN: Patient given return precautions. ??No further follow-up needed Dictated by: Isa Rodriguez M.D. The radiology attending physician has personally reviewed this study, and had reviewed and/or edited this written report and agrees with it. Electronically signed by: Clarence Jaimes M.D. Narrative 02/04/2020 3:55 PM CDT EXAMINATION: ??CHOLANGIOGRAM THROUGH EXISTING TUBE HISTORY/INDICATION: 61-year-old male with perforated cholecystitis abscess status post drainage/03/2020, last exchange 12/27/2019 with 10-Australian cope loop. ??Last check on 01/15/2020 showed near resolution of abscess cavity. ??Patient reports no symptoms. ??There is been about 5 to 10 mL of matter white fluid output per day. ATTENDING PRESENCE: Clarence Jaimes M.D., the attending radiologist was present from the beginning to the end of the procedure. ?? SEDATION: The patient did not require conscious sedation for the procedure. TECHNIQUE: ??The risks, benefits and alternatives were discussed and informed consent was obtained. Prior to beginning the procedure, Brodnax Protocol was performed to confirm the patient's identity and the planned procedure. ??The fluoroscopy time has been recorded in the electronic medical record. The patient was positioned on the fluoroscopy table and a digitizer image obtained. ??Contrast was injected through the patient's indwelling 10-Australian cope loop catheter. Multiple fluoroscopic images were obtained in different projections. At the end of the procedure, the catheter was removed. ESTIMATED BLOOD LOSS: Minimal CONDITION: Stable condition DISCHARGED TO: Recovery and then to home FINDINGS: Injection shows near complete resolution of the gallbladder fossa abscess cavity. ??There is a small linear tract extending towards the gallbladder, but there is no opacification the gallbladder. Procedure Note Clarence Jaimes MD - 02/04/2020 EXAMINATION: CHOLANGIOGRAM THROUGH EXISTING TUBE HISTORY/INDICATION: 61-year-old male with perforated cholecystitis abscess status post drainage/03/2020, last exchange 12/27/2019 with 10-Australian cope loop. Last check on 01/15/2020 showed near resolution of abscess cavity. Patient reports no symptoms. There is been about 5 to 10 mL of matter white fluid output per day. ATTENDING PRESENCE: Clarence Jaimes M.D., the attending radiologist was present from the beginning to the end of the procedure. SEDATION: The patient did not require conscious sedation for the procedure. TECHNIQUE: The risks, benefits and alternatives were discussed and informed consent was obtained. Prior to beginning the procedure, Brodnax Protocol was performed to confirm the patient's identity and the planned procedure. The fluoroscopy time has been recorded in the electronic medical record. The patient was positioned on the fluoroscopy table and a digitizer image obtained. Contrast was injected through the patient's indwelling 10-Australian cope loop catheter. Multiple fluoroscopic images were obtained in different projections. At the end of the procedure, the catheter was removed. ESTIMATED BLOOD LOSS: Minimal CONDITION: Stable condition DISCHARGED TO: Recovery and then to home FINDINGS: Injection shows near complete resolution of the gallbladder fossa abscess cavity. There is a small linear tract extending towards the gallbladder, but there is no opacification the gallbladder. IMPRESSION: Resolution of gallbladder fossa abscess cavity. The catheter was removed. PLAN: Patient given return precautions. No further follow-up needed Dictated by: Isa Rodriguez M.D. The radiology attending physician has personally reviewed this study, and had reviewed and/or edited this written report and agrees with it. Electronically signed by: Clarence Jaimes M.D. us Miladys SANDOVAL IMG IR PROCEDURES Final R esult * IR Inject Abscess Catheter (01/15/2020 10:20 AM CDT) Anatomical Region Laterality Modality Body N/A Ultrasound 01/15/2020 10:4 7 AM CDT Impressions 01/15/2020 12:35 PM CDT Improved collection with communication to gallbladder. ?? PLAN: Continue to monitor catheter output as well as the patient's clinical condition. Plan to see the patient again in 2 weeks. Will attempt to gain access to the gallbladder and leave cholecystostomy tube. If unsuccessful, can consider tube removal at this time as tract will be more mature. The catheter should not be flushed. ?? The patient will follow-up with us in 2 weeks. If questions arise, please contact us by calling [phone]. Dictated by: Miladys Jamison The radiology attending physician has personally reviewed this study, and had reviewed and/or edited this written report and agrees with it. Electronically signed by: Sae Otero M.D. Narrative 01/15/2020 12:35 PM CDT EXAMINATION: ??DRAINAGE CATHETER EVALUATION HISTORY: ??69 year old male with history of perforated cholecystitis and recurrent gallbladder fossa abscess status post drain placement on 12/19/19, presents for routine drain check. Last exchange was on 01/04/20 for a 10 Fr Sodus. Patient reports approximately 20-40ml milky yellow/white fluid out per day. Patient is asymptomatic from a biliary standpoint and not a surgical candidate at this time from a nutritional standpoint. ATTENDING PRESENCE: ??Sae Otero M.D., the attending radiologist, was present from the beginning to the end of the procedure. SEDATION: ??No sedation. TECHNIQUE: Prior to beginning the procedure, Brodnax Protocol was used to confirm the patient's identity and planned procedure. Fluoroscopy time has been recorded in the electronic medical record. After obtaining a digitizer image, the catheter was injected with dilute contrast and multiple fluoroscopic images obtained. ?? A sterile dressing was applied to the skin site. ESTIMATED BLOOD LOSS: Minimal. CONDITION: Stable DISCHARGED TO: ??Recovery and then to senior care facility. FINDINGS: Images from the catheter check demonstrate near resolution of remaining gallbladder fossa abscess cavity with communication to lumen of gallbladder. Possible filing defect representing stone within the gallbladder. Flow of contrast through the common bile duct was not visualized. The catheter was draining milky yellow fluid. Procedure Note Sae Otero MD - 01/15/2020 EXAMINATION: DRAINAGE CATHETER EVALUATION HISTORY: 69 year old male with history of perforated cholecystitis and recurrent gallbladder fossa abscess status post drain placement on 12/19/19, presents for routine drain check. Last exchange was on 01/04/20 for a 10 Fr Sodus. Patient reports approximately 20-40ml milky yellow/white fluid out per day. Patient is asymptomatic from a biliary standpoint and not a surgical candidate at this time from a nutritional standpoint. ATTENDING PRESENCE: Sae Otero M.D., the attending radiologist, was present from the beginning to the end of the procedure. SEDATION: No sedation. TECHNIQUE: Prior to beginning the procedure, Brodnax Protocol was used to confirm the patient's identity and planned procedure. Fluoroscopy time has been recorded in the electronic medical record. After obtaining a digitizer image, the catheter was injected with dilute contrast and multiple fluoroscopic images obtained. A sterile dressing was applied to the skin site. ESTIMATED BLOOD LOSS: Minimal. CONDITION: Stable DISCHARGED TO: Recovery and then to senior care facility. FINDINGS: Images from the catheter check demonstrate near resolution of remaining gallbladder fossa abscess cavity with communication to lumen of gallbladder. Possible filing defect representing stone within the gallbladder. Flow of contrast through the common bile duct was not visualized. The catheter was draining milky yellow fluid. IMPRESSION: Improved collection with communication to gallbladder. PLAN: Continue to monitor catheter output as well as the patient's clinical condition. Plan to see the patient again in 2 weeks. Will attempt to gain access to the gallbladder and leave cholecystostomy tube. If unsuccessful, can consider tube removal at this time as tract will be more mature. The catheter should not be flushed. The patient will follow-up with us in 2 weeks. If questions arise, please contact us by calling [phone]. Dictated by: Miladys Jamison The radiology attending physician has personally reviewed this study, and had reviewed and/or edited this written report and agrees with it. Electronically signed by: Sae Otero M.D. Rui Bonilla MD IMG IR PROCEDURES Final Resul t documented in this encounter Visit Diagnoses Diagnosis Intra-abdominal abscess (CMS/HCC) (HCC) Peritoneal abscess Intra-abdominal abscess (CMS/HCC) (HCC) Peritoneal abscess documented in this encounter Additional Health Concerns Infection Onset Date Last Indicated Resolved Time MDR gram neg/ESBL Comment:06/16/2021 IP Review - Pt with scrotal abscess, but is not actively draining (last documented draining on 06/14). Pt remains intubated so requires trach aspirate for isolation discontinuation. Provider notified. Amanda Walker RN 12/19/2019 12/19/2019 documented as of this encounter Care Teams Deckhand Oyster Dredge Relationship Specialty Start Date End Date Jean-Claude Crawford MD [address] [place] [address] PCP - General Family Medicine 08/18/19 04/11/20 documented as of this encounter
--- OUTSIDE RECORDS SUMMARY | 2024-04-08 10:39 | XMS_ITS | Encounter Summary ---
Author Organization [facility] Healthcare Address [address] [place] [address] Care Team Providers Care Security Analyst Name Role Phone Jean-Claude Crawford MD Primary Care Provider Encounter Details Date Type Department Care Team (Late st Contact Info) Description 02/02/2020 Telephone [facility] Radiology [address] [place] [address] Addie Preston, RN Social History Tobacco Use Types Packs/Day Years Used Date Smoking Tobacco: Every Day Cigarettes Smokeless Tobacco: Never Alcohol Use Standard Drinks/Week Comments Yes 0 (1 standard drink = 0.6 oz pur e alcohol) limited Sex and Gender Information Value Date Recorded Sex Assigned at Not on file 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 documented in this encounter Plan of Treatment [...] documented as of this encounter Care Teams Security Analyst Relationship Specialty Start Date End Date Jean-Claude Crawford MD [address] [facility] [address] [place] [phone] PCP - General Family Medicine 08/18/19 04/11/20 documented as of this encounter
--- OUTSIDE RECORDS SUMMARY | 2024-04-08 10:39 | XMS_ITS | Encounter Summary ---
Author Organization [facility] Address [address] [place] [address] Care Team Providers Care Account Liaison Hospice Name Role Phone Jean-Claude Crawford MD Primary Care Provider Encounter Details Date Type Department Care Team (Late st Contact Info) Description 11/17/2019 Orders Only [facility] Cardiology [address] [facility] [address] [place] [phone] Heron Martinez MD [facility] [place] [id number] Social History Tobacco Use Types Packs/Day Years Used Date Smoking Tobacco: Every Day Cigarettes Smokeless Tobacco: Never Alcohol Use Standard Drinks/Week Comments Yes 0 (1 standard drink = 0.6 oz pur e alcohol) limited Sex and Gender Information Value Date Recorded Sex Assigned at Not on file 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 Gender Identity Not on file Sexual Orientation Not on file documented as of this encounter Plan of Treatment Not on file documented as of this encounter Procedures Procedure Name Priority Date/Time Associated Diagnosis Comments CARDIOLOGY DOCUMENT SCAN Routine 11/17/2019 documented in this encounter Results * SCAN - CARDIOLOGY (11/17/2019) Anatomical Region Laterality Modality Other Heron Martinez MD [facility] Final Result documented in this encounter Visit Diagnoses Not on filedocumented in this encounter Care Teams Account Liaison Hospice Relationship Specialty Start Date End Date Jean-Claude Crawford MD [address] [facility] [address] [facility] [address] [place] [address] PCP - General Family Medicine 08/18/19 04/11/20 documented as of this encounter
--- OUTSIDE RECORDS SUMMARY | 2024-04-08 10:39 | XMS_ITS | Encounter Summary ---
Author Organization [facility] Address [address] [place] [address] Care Team Providers Care Almond Huller Name Role Phone Jean-Claude Crawford MD Primary Care Provider Encounter Details Date Type Department Care Team (Late st Contact Info) Description 11/14/2019 Orders Only [facility] Cardiology [address] [place] [address] Jelena Garzon MD [address] [place] [address] Social History Tobacco Use Types Packs/Day Years Used Date Smoking Tobacco: Every Day Cigarettes Smokeless Tobacco: Never Alcohol Use Standard Drinks/Week Comments Yes 0 (1 standard drink = 0.6 oz pur e alcohol) limited Sex and Gender Information Value Date Recorded Sex Assigned at Not on file 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 Gender Identity Not on file Sexual Orientation Not on file documented as of this encounter Plan of Treatment Not on file documented as of this encounter Procedures Procedure Name Priority Date/Time Associated Diagnosis Comments CARDIOLOGY DOCUMENT SCAN Routine 11/14/2019 documented in this encounter Results * SCAN - CARDIOLOGY (11/14/2019) Anatomical Region Laterality Modality Other Jelena Garzon MD [facility] C[facility]IAC SERVICES PROCEDU RES Final Result documented in this encounter Visit Diagnoses Not on filedocumented in this encounter Care Teams Almond Huller Relationship Specialty Start Date End Date Jean-Claude Crawford MD [address] [facility] [address] [facility] [address] [place] [phone] PCP - General Family Medicine 08/18/19 04/11/20 documented as of this encounter
--- OUTSIDE RECORDS SUMMARY | 2024-04-08 10:39 | XMS_ITS | Encounter Summary ---
Author Organization [facility] Healthcare Address [address] [place] [address] Care Team Providers Care Community Arts Worker Name Role Phone Jean-Claude Crawford MD Primary Care Provider Reason for Visit * Reason Comments Shortness of Breath Encounter Details Date Type Department Care Team (Latest Contact Info) Description 02/19/2020 6:46 PM BLEACH TESTER - 02/22/2020 12:03 PM BLEACH TESTER Hospital Encounter [facility] [address] [place] [address] Kezia Rausch MD [address] [facility] [address] [place] [address] Janet Perez MD [address] [facility] [address] [place] [address] Yuriy Candelario MD [address] [place] [address] DVT (deep venous thrombosis) (CMS/HCC) (Primary Dx) Discharge Disposition: Discharge to home or self care Social History Tobacco Use Types Packs/Day Years Used Date Smoking Tobacco: Every Day Cigarettes Smokeless Tobacco: Never Alcohol Use Standard Drinks/Week Comments Yes 0 (1 standard drink = 0.6 oz pur e alcohol) limited Sex and Gender Information Value Date Recorded Sex Assigned at Not on file Legal Sex Male 9:10 PM BLEACH TESTER Gender Identity Not on file Sexual Orientation Not on file documented as of this encounter Last Filed Vital Signs Vital Sign Reading Time Taken Comments Blood Pressure 154/109 02/22/2020 7:50 AM BLEACH TESTER Abiodun Rodgers MD notified Pulse 118 02/22/2020 7:50 AM BLEACH TESTER Temperature 36.6 ??C (97.9 ??F) 02/22/2020 7 :50 AM BLEACH TESTER Respiratory Rate 16 02/22/2020 7:50 AM BLEACH TESTER Oxygen Saturation 92% 02/22/2020 7:5 0 AM BLEACH TESTER Inhaled Oxygen Concentration - - Weight 88 kg (194 lb 0.1 oz) 02/22/2020 6:05 AM BLEACH TESTER Height 180.3 cm (5' 11 ) 02/19/2020 5:2 7 PM BLEACH TESTER Body Mass Index 27.06 02/19/2020 5:27 PM BLEACH TESTER documented in this encounter Discharge Diagnoses Diagnosis Acute embolism and thrombosis of unspecified deep veins of right lower extremity (HCC) - ACUTE EMBOLISM AND THROMBOSIS OF UNSPECIFIED DEEP VEINS OF RIGHT LOWER EXTREMITY Acute on chronic systolic (congestive) heart failure (HCC) - ACUTE ON CHRONIC SYSTOLIC (CONGESTIVE) HEART FAILURE Unspecified atrial fibrillation (HCC) - UNSPECIFIED ATRIAL FIBRILLATION Pure hypercholesterolemia, unspecified - PURE HYPERCHOLESTEROLEMIA, UNSPECIFIED Benign prostatic hyperplasia without lower urinary tract symptoms - BENIGN PROSTATIC HYPERPLASIA WITHOUT LOWER URINARY TRACT SYMPTOMS Hypertensive heart disease with heart failure (CMS/HCC) (HCC) - HYPERTENSIVE HEART DISEASE WITH HEART FAILURE Unspecified hypertensive heart disease with heart failure Frequency of micturition - FREQUENCY OF MICTURITION Urinary frequency Gastro-esophageal reflux disease without esophagitis - GASTRO-ESOPHAGEAL REFLUX DISEASE WITHOUT ESOPHAGITIS Hyperlipidemia, unspecified - HYPERLIPIDEMIA, UNSPECIFIED Personal history of transient ischemic attack (TIA), and cerebral infarction without residual deficits - PERSONAL HISTORY OF TRANSIENT ISCHEMIC ATTACK (TIA), AND CEREBRAL INFARCTION WITHOUT RESIDUAL DEFICI Nicotine dependence, cigarettes, uncomplicated - NICOTINE DEPENDENCE, CIGARETTES, UNCOMPLICATED Contact with and (suspected) exposure to other viral communicable diseases - CONTACT WITH AND (SUSPECTED) EXPOSURE TO OTHER VIRAL COMMUNICABLE DISEASES documented in this encounter Discharge Summaries * Abiodun Rodgers MD - 02/22/2020 11:41 AM CST Images from the original note were not included. Inpatient Discharge Summary BRIEF OVERVIEW Admitting Provider: Janet Perez MD Discharge Provider: Yuriy Candelario MD Primary Care Physician at Discharge: Jean-Claude Crawford MD [phone] Admission Date: 02/19/2020 Discharge Date: 02/22/2020 Admission Location: [facility] Problems/Diagnoses: Principal Problem: DVT (deep venous thrombosis) (CMS/[facility]) Resolved Problems: No resolved hospital problems. DETAILS OF HOSPITAL STAY Presenting Problem/History of Present Illness: The patient is a 69 y.o. male with history of Atrial fibrillation not currently on anti-coagulation, CHF, BPH, GERD, HLD, HTN, EtOH Abuse and TIA with recent admission for abdominal abscess complicated by sepsis and requiring intubation presents with chief complaint of lower extremity swelling withconcern for DVT. HPI: Mr Guajardo was recently discharged from the hospital following and stay person outside hospital then at [facility] after having developed the gallbladder abscess which perforated and was complicated by septicemia and required ICU stay with intubation. He was discharged with percutaneous drain of his gallbladder which was removed on February 03. ?? After the patient's hospital stay he was spend time in rehabilitation long term and then was discharged home about 3 weeks ago. Since then his has noticed that he has had continuing swelling in his lower extremities bilaterally which seems to get worse over the 3 weeks. She also notes that he has had increased urinary frequency and volume over the same period of time. She states he has been getting his home furosemide 20 mg once daily and despite this the swelling still gotten worse. She notes over the same period of time that his functional status has declined and he has gotten weaker and less active over the 3 week period. He has had significant difficulty with climbing and going down the stairs in her home. Two days prior to his presentation the hospital she has noticed that heendorsed episodes of chills and sweating. She has also noticed that he had become more short of breath the patient denies this. She denies any fever coughs that he has complained of in the patient denies any fever or cough. On the day of presentation the patient was getting out of bed and he slid slowly out of bed onto the floor. Patient states he does not feel strong enough to correct his fall and just slid slow the floor. He denies dizziness or lightheadedness. There was no loss of consciousness no head strike no trauma. After the patient's fall on a bed EMS was called the patient was brought to [facility] for further evaluation. ?? On presentation emergency department there is concern for PE and DVT given his shortness of breath and leg swelling. A CT PE was performed and was negative. However a lower extremity ultrasound demonstrated a DVT in the right profunda vein. Given the patient's history of heart failure lower extremity swelling bilaterally there is also concern for a possible CHF exacerbation. Troponins were insignificant. Coagulation studies notable for PT to 13.3, INR 1.2, APTT 26. Patient's potassium was low on presentation to 3.2, albumin 3.1, and creatinine of 0.66. Chemistries otherwise unremarkable. . ?? On interview admission the patient denies having leg swelling, shortness of breath, cough, fevers, chills, abdominal pain, nausea, vomiting, diarrhea. He endorses urinary incontinence. He states he did not feel come he had to come the hospital but did so on his 's recommendation. He endorses several weeks of decreased activity and weakness at home. He endorses having challenges getting around. Patient states he is a 1.5 ppd smoker for 60 years. States he drinks 2-3 margaritas a day but denies any previous withdrawal symptoms denies other substance abuse or use. ?? Hospital Course: # DVT. On presentation to the hospital the patient was given CT PE Protocol which was negative buy lower extremity Dopplers showed evidence of blood clot in the right femoral profunda vein. Heparin was initiated with a continuous infusion and was titrated to a PTT of 80. Patient was transitioned to Eliquis 5mg PO daily and provided a 30 day supply of Eliquis at discharge. Patient was evaluated by PT andOT who both recommended the patient return home. ?? # Lower Extremity Edema/ history of congestive heart failure -The patient presented with increased bilateral lower extremity edema. He was given Two rounds of 40mg IV lasix and achieved rapid diuresis and improvement in symptoms. We increased his home furosemide to 40 b.i.d. and continued his home potassium and mangesium regimen. WE added lisinopril 40mg PO daily to the patient's regimen. ?? # history of atrial fibrillation We simplified the patient's home rate control medications by discontinuing diltiazem and coreg but continued his/ metoprolol 50 mg twice daily ?? # history of GERD -We changed the patients PPI to Protonix 40 mg p.o. once daily ? # history of TIA -We discontinued his home Aspirin regimen as the patient was discharged on Eliquis. Active Issues Requiring Follow-up: Patient will need assistance with intermediate manager prescription for Eliquis. Test Results Pending at Discharge: Operative Procedures Performed: Other Procedures: None Pertinent Test Results: Chem/LFT Lab History Some values may be hidden. Unless noted otherwise, only the newest values recorded on each date aredisplayed. Labs-Chem/LFT Latest Ref Range 12/20/19 02/19/20 02/20/20 02/21/20 Sodium 135 - 145 mmol/L 138 139 140 136 Creatinine 0.80 - 1.30 mg/dL 0.48 (A) 0.66 (A) 0.73 (A) 0.72 (A) Bilirubin, total 0.1 - 1.2 mg/dL 0.2 AST 10 - 50 Units/L 26 ALT 7 - 55 Units/L 12 CrCl- Actual Body Weight (Cockcroft-Gault) 165.6 154.6 122.9 126.4 Some values recorded on this date have been omitted. Some abnormal values recorded on this date have been omitted. (A) Abnormal value Comments are available for some flowsheets but are not being displayed. Hematology Lab History Some values may be hidden. Unless noted otherwise, only the newest values recorded on each date aredisplayed. Labs - Hematology Latest Ref Range 12/18/19 12/20/19 02/19/20 02/20/20 WBC 3.8 - 9.9 K/cumm 5.9 5.4 9.8 6.5 Total Hb, POC 13.0 - 17.5 g/dL 10.3 (A) 10.4 (A) 12.4 (A) 11.3 (A) Hct 38.9 - 50.3 % 30.8 (A) 31.5 (A) 36.6 (A) 34.3 (A) Plt 150 - 400 K/cumm 251 266 156 163 Neutrophil abs 1.7 - 6.5 K/cumm 8.4 (A) Lymphocytes, abs 0.8 - 3.3 K/cumm 0.7 (A) Some values recorded on this date have been omitted. Some abnormal values recorded on this date have been omitted. (A) Abnormal value Discharge Details Physical Exam at Discharge: Discharge Condition: good Pulse: 118 Resp: 16 BP: (S) (!) 154/109(Abiodun Rodgers MD notified) Temp: 36.6 ??C (97.9 ??F) Weight: 88 kg (194 lb 0.1 oz) Pertinent Exam Findings at Discharge: Physical exam: General: Patient Sitting in hospital bed, in no acute distress. HEENT: NC/AT. EOMI. PERRL. Notably diminished visual acuity. Hard of hearing but able localize sound. Conjunctiva non-injected, no sleral icterus. Oropharynx is pink and moist without obvious lesions. Poor dentition Thyroid non-palpable. Cardiovascular: Irregularly irregular heart rate and rhythm. No murmurs, rubs, or gallops. Pulmonary: Pulmonary exam significant for wheezes in the right middle and lower lung herrera and left lower lung field. Abdominal: Soft, Mild tenderness in RUQ, ND, BS+. No palpable masses or organomegaly. No rebound orguarding. Musculoskeletal: Normal range of motion. No obvious deformity. Extremities: 2+ edema to the ankle bilaterally, 1+ edema to the knee. No heat, erythema, or visibledefect in either extremity he on the edema. Neurological: Alert and oriented x3. CN II-XII intact. Moving all extremities equally, no focal deficits. 2+ patellar reflexes bilaterally Psychiatric: Normal behavior, pleasant and conversant. ?? Discharge Disposition: Discharge to home or self care Code Status at Discharge: Full Discharge Instructions: After receiving Heparin in the emergency department, We started you on Eliquis 5mg to treat your DVT and have a blood thinner to prevent clots related to your Atrial fibrilation. We discontinued yourdiltiazem, do not continue taking this medication. For your heart we increased your Lasix dose to 40mg twice daily, started you on Lisinopril 40mg daily, and continued your home metoprolol. You are being sent home with a 30 day supply of your medications. Please continue taking these medications asdirected below. You will need to follow up with your primary care provider. When you see your primary care provider please discuss ordering these medications intermediate manager especially your Lisinopril and Eliquis. Discharge Medications: Current Medications TAKE these medications acetaminophen 325 mg tablet Take 2 tablets (650 mg total) by mouth every 4 (four) hours as needed for pain Commonly known as: TYLENOL apixaban 5 mg tablet Take 1 tablet (5 mg total) by mouth every 12 (twelve) hours For: atrial fibrillation Commonly known as: ELIQUIS cholecalciferol 5,000 unit tablet Commonly known as: VITAMIN D-3 folic acid 1 mg tablet Take 1 tablet (1 mg total) by mouth daily Commonly known as: FOLVITE furosemide 40 mg tablet Take 1 tablet (40 mg total) by mouth 2 (two) times a day Commonly known as: LASIX levalbuterol 1.25 mg/3 mL nebulizer solution Take 1.25 mg by nebulization 3 (three) times a day Commonly known as: XOPENEX lisinopriL 40 mg tablet Take 1 tablet (40 mg total) by mouth daily Commonly known as: PRINIVIL,ZESTRIL Start taking on: February 23, 2020 magnesium oxide 400 mg (241.3 mg elemental magnesium) tablet Take 1 tablet (400 mg total) by mouth daily For: low amount of magnesium in the blood Commonly known as: MAG-OX metoprolol tartrate 50 mg immediate release tablet Take 1 tablet (50 mg total) by mouth 2 (two) times a day Commonly known as: LOPRESSOR multivit godsynbc-yiiy-XV-calcium 9 mg iron-400 mcg tablet Take 1 tablet by mouth daily Commonly known as: THERA-M Start taking on: February 23, 2020 ondansetron ODT 4 mg disintegrating tablet Take 1 tablet (4 mg total) by mouth every 4 (four) hours as needed for nausea or vomiting Commonly known as: ZOFRAN-ODT pantoprazole DR 40 mg EC tablet Take 1 tablet (40 mg total) by mouth daily For: Stress Ulcer Prophylaxis Commonly known as: PROTONIX Start taking on: February 23, 2020 polyethylene glycol 17 gram packet Take 17 g by mouth daily For: constipation Commonly known as: MIRALAX potassium chloride ER 20 mEq CR tablet Take 2 tablets (40 mEq total) by mouth daily Commonly known as: KLOR-CON Start taking on: February 23, 2020 terazosin 10 mg capsule Take 1 capsule (10 mg total) by mouth nightly Commonly known as: HYTRIN thiamine 100 mg tablet Take 100 mg by mouth daily Commonly known as: VITAMIN B1 Outpatient Follow-Up: Contact Information for Follow-ups Jean-Claude Crawford MD Specialty: Family Medicine Relationship: PCP - General [address] [place] [address] Next Steps: Follow up Cosigned by Yuriy Candelario MD at 02/22/2020 4:49 PM BLEACH TESTER CH TESTER CH TESTER documented in this encounter Discharge Instructions * Discharge Instructions* Abiodun Rodgers MD - 02/22/2020 11:41 AM BLEACH TESTER After receiving Heparin in the emergency department, We started you on Eliquis 5mg to treat your DVT and have a blood thinner to prevent clots related to your Atrial fibrilation. We discontinued yourdiltiazem, do not continue taking this medication. For your heart we increased your Lasix dose to 40mg twice daily, started you on Lisinopril 40mg daily, and continued your home metoprolol. You are being sent home with a 30 day supply of your medications. Please continue taking these medications asdirected below. You will need to follow up with your primary care provider. When you see your primary care provider please discuss ordering these medications intermediate manager especially your Lisinopril and Eliquis. CH TESTER * Attachments The following attachments cannot be sent through Care Everywhere. * Deep Vein Thrombosis (Discharge Care) (Citizen [place]) * Heart Failure (Discharge Care) (Citizen [place]) documented in this encounter Medications at Time of Discharge cholecalciferol (VITAMIN D-3) 5,000 unit tabletIndications:V itamin D Deficiency Take 1 tablet (5,000 Units total) by mouth every other day acetaminophen (TYLENOL) 325 mg tablet Take 2 tablets (650 mg total) by mouth every 4 (four) hours as needed for pain 30 tablet 0 03/23/20 20 magnesium oxide (MAG-OX) 400 mg (241.3 mg elemental magnesium) tabletIndications:h ypomagnesemia Take 1 tablet (400 mg total) by mouth daily 30 tablet 0 03/23/20 20 multivit ykeeobah-hoqz-RF-ca lcium (THERA-M) 9 mg iron-400 mcg tablet Take 1 tablet by mouth daily 30 tablet 0 03/24/20 20 apixaban (ELIQUIS) 5 mg tabletIndications:a trial fibrillation [...] Refills Last Filled Start Date End Date furosemide (LASIX) 40 mg tablet Take 1 tablet (40 mg total) by mouth 2 (two) times a day 60 tablet 11 02/22/2020 2 multivit ublxoprl-bhkd-PK-c alcium (THERA-M) 9 mg iron-400 mcg tablet Take 1 tablet by mouth daily 30 tablet 02/23/2020 0 acetaminophen (TYLENOL) 325 mg tablet Take 2 tablets (650 mg total) by mouth every 4 (four) hours as needed for pain 30 tablet 02/22/2020 0 potassium chloride ER (KLOR-CON) 20 mEq CR tablet Take 2 tablets (40 mEq total) by mouth daily 60 tablet 11 02/23/2020 1 lisinopriL (PRINIVIL,ZESTRIL) 40 mg tablet Take 1 tablet (40 mg total) by mouth daily 30 tablet 11 02/23/2020 2 apixaban (ELIQUIS) 5 mg tabletIndications: atrial fibrillation Take 1 tablet (5 mg total) by mouth every 12 (twelve) hours 60 tablet 02/22/[address] (PROTONIX) 40 mg EC tabletIndications: Stress Ulcer Prophylaxis Take 1 tablet (40 mg total) by mouth daily 30 tablet 11 02/23/2020 2 terazosin (HYTRIN) 10 mg capsule Take 1 capsule (10 mg total) by mouth nightly 30 capsule 02/22/2020 2 metoprolol tartrate (LOPRESSOR) 50 mg immediate release tablet Take 1 tablet (50 mg total) by mouth 2 (two) times a day 60 tablet 02/22/2020 1 magnesium oxide (MAG-OX) 400 mg (241.3 mg elemental magnesium) tabletIndications: hypomagnesemia Take 1 tablet (400 mg total) by mouth daily 30 tablet 02/22/2020 0 folic acid (FOLVITE) 1 mg tablet Take 1 tablet (1 mg total) by mouth daily 30 tablet 02/22/2020 2 apixaban (ELIQUIS) 5 mg tabletIndications: atrial fibrillation Take 1 tablet (5 mg total) by mouth every 12 (twelve) hours 60 tablet 02/21/2020 0 apixaban (ELIQUIS) 5 mg tabletIndications: atrial fibrillation Take 1 tablet (5 mg total) by mouth every 12 (twelve) hours 60 tablet 02/21/2020 0 documented in this encounter Discharge Disposition Disposition Code Departure Means Destination Discharge to home or self care documented in this encounter Progress Notes * Sisi Boland RN - 02/22/2020 11:32 AM CST 02/22/20 113 Discharge Summary Chart reviewed For Medical Necessity Does patient have a planned readmission to hospital planned? No Discharge Disposition Home Equipment/Provider Needs No Home Needs Identified Discharge Additional Assistance Does the patient need discharge transport arranged? No (car per spouse) Post Discharge Care Provider Post Discharge Care Plan DC Summary has been faxed to next level of care provider (see Follow Up Providers) Patient is medically stable to discharge home today. Patient will have transportation provided by the patient's sposue. Patient has PCP follow up with Dr. Crawford 02/25 1100. No additional needs noted at this time. ADD: Today CH TESTER * Abiodun Rodgers MD - 02/22/2020 7:44 AM CST Daily Progress Note Medicine FIRM Name: Jania Guajardo Today: February 22, 2020 : 1950 Age: 69 y.o. male Admit: 02/19/2020 Bed: [id number] Subjective Chief complaint: DVT, Lower extremity edema Interval History: Patient seen by PT OT recommended home was just respectively. Patient reported some pain at his port site. requesting discharge home today. Patient's magnesium was 1.2 this morning and IV repletion was given prior to discharge. Objective Medications: Scheduled: ??? apixaban, 5 mg, oral, Q12H MONET ??? cholecalciferol, 1,000 Units, oral, Daily ??? folic acid, 1 mg, oral, Daily ??? lisinopriL, 40 mg, oral, Daily ??? magnesium oxide, 400 mg, oral, Daily ??? magnesium sulfate, 4 g, intravenous, Once ??? metoprolol tartrate, 50 mg, oral, BID ??? multivitamin with minerals, 1 tablet, oral, Daily ??? nicotine, 1 patch, transdermal, Daily ??? pantoprazole DR, 40 mg, oral, Daily ??? potassium chloride ER, 40 mEq, oral, Daily ??? terazosin, 10 mg, oral, Nightly ??? thiamine, 100 mg, oral, Daily Infusions: PRN: ??? acetaminophen ??? albuterol ??? ramelteon ??? senna-docusate Vitals: 24hr Min/Max: Temp Min: 36.7 ??C (98.1 ??F) Max: 37.8 ??C (100 ??F) Pulse Min: 62 Max: 125 BP Min: 136/91 Max: 166/95 Resp Min: 16 Max: 17 SpO2 Min: 90 % Max: 96 % Most Recent: Vitals: 02/22/20 0300 BP: 144/94 Pulse: 95 Resp: 17 Temp: 36.9 ??C (98.4 ??F) SpO2: 92% Intake/Output Summary (Last 24 hours) at 02/22/2020 0744 Last data filed at 02/22/2020 0600 Gross per 24 hour Intake 340 ml Output 1700 ml Net -1360 ml Physical exam: General: Patient Sitting in hospital bed, in no acute distress. HEENT: NC/AT. EOMI. PERRL. Notably diminished visual acuity. Hard of hearing but able localize sound. Conjunctiva non-injected, no sleral icterus. Oropharynx is pink and moist without obvious lesions. Poor dentition Thyroid non-palpable. Cardiovascular: Irregularly irregular heart rate and rhythm. No murmurs, rubs, or gallops. Pulmonary: Pulmonary exam significant for wheezes in the right middle and lower lung herrera and left lower lung field. Abdominal: Soft, Mild tenderness in RUQ, ND, BS+. No palpable masses or organomegaly. No rebound orguarding. Musculoskeletal: Normal range of motion. No obvious deformity. Extremities: 2+ edema to the ankle bilaterally, 1+ edema to the knee. No heat, erythema, or visibledefect in either extremity he on the edema. Neurological: Alert and oriented x3. CN II-XII intact. Moving all extremities equally, no focal deficits. 2+ patellar reflexes bilaterally Psychiatric: Normal behavior, pleasant and conversant. ?? Lab/Diagnostic Review: Recent Results (from the past 24 hour(s)) Basic metabolic panel Collection Time: 02/21/20 8:19 PM Result Value Ref Range Sodium 136 135 - 145 mmol/L Potassium, pl 3.3 3.3 - 4.9 mmol/L Chloride 101 97 - 110 mmol/L CO2 32 22 - 32 mmol/L Anion gap 3 2 - 15 mmol/L BUN 9 8 - 25 mg/dL Creatinine 0.72 (L) 0.80 - 1.30 mg/dL Glucose 168 70 - 199 mg/dL Calcium 8.7 8.5 - 10.3 mg/dL Protime-INR Collection Time: 02/21/20 8:19 PM Result Value Ref Range PT 17.9 (H) 8.6 - 13.0 sec INR 1.6 (H) 0.8 - 1.2 Magnesium Collection Time: 02/21/20 8:19 PM Result Value Ref Range Magnesium 1.3 (L) 1.4 - 2.5 mg/dL I have reviewed the laboratory results. Imaging Results: US Vein Duplex Lower Extremity Bilateral [facility] - Department of Vascular Surgery, Vascular Laboratory [address] [place] [address] Lower Extremity Venous Ultrasound Report Patient Name: JANIA GUAJARDO A : 1950 (69y 9m) Study Date: 02/20/2020 7:13:42 AM Gender: M Tech: Cornell MORENO Location: 2-18 Ref.Provider: KEZIA RAUSCH Quality: Adequate Order Provider: JAIR JAY Procedures: Vascular Report: Venous Duplex imaging was performed bilaterally in the lower extremities. The common femoral, femoral, popliteal, posterior tibial, peroneal veins were evaluated for patency, spontaneity and phasicity with Doppler, compression and augmentation maneuvers. Great saphenous vein proximal at the junction was evaluated with compression maneuvers. Indications: b/l Le swelling. Findings: Performing Crown Perforator Operator: Laurel Moreno RVT. Right: Duplex scan reveals dilated vein with echogenic, intraluminal, non-compressible material consistent with acute deep vein thrombosis in the right lower extremity. Deep veins involved include the right profunda femoral vein. All other evaluated veins on the right are patent. Left: Venous Doppler signals in the left lower extremity are within normal limits for spontaneity and phasicity and respond normally to augmentation maneuvers. No evidence of deep vein thrombus by duplex, proximal to the calf. Comments: Soft tissue masses present in the left groin area, possible lymphadenopathy. Provider Notification: Results called to Dr. Clinton. Conclusions: 1. There is acute deep vein thrombosis involving vein(s) as noted above in the right lower extremity. 2. There is no evidence of acute deep vein thrombosis on the left. Noninvasive venous studies cannot rule out isolated calf vein obstruction. 3. Soft tissue masses present in the left groin area, possible lymphadenopathy. History: HTN, HLD, CHF, TIA, Cholecystitis. Previous Studies: No previous studies for comparison. Disclaimer: The signing physician has reviewed all images pertaining to this test. These images and this report will be retained in the patient chart by the Vascular Laboratory for the legally required time period. This chart constitutes the legal record of any testing performed. Electronically Signed By: Franklin Curiel MD [facility] 2020-02-21 22:01:24 BLEACH TESTER CC: CC: Assessment/Plan Mr. Guajardo is a 69 y.o. male with history of Atrial fibrillation not currently on anti-coagulation, CHF, BPH, GERD, HLD, HTN, EtOH Abuse and TIA with recent admission for abdominal abscess complicated by sepsis and requiring intubation presents with chief complaint of lower extremity swelling with concern for DVT. Given the patient's history and presenting symptoms no concern for PE in the emergency department justified however CT PE protocol negative. Lower extremity Dopplers positive for DVT inthe right profunda vein. Based on given history and chart review patient's Bernardino Vasc score is 5 (7.2% risk of stroke), patient's has bled score is 6 indicating a very high risk of bleeding. Given patient has coarse lung sounds, history of congestive heart failure, a concurrent congestive heart failure exacerbation cannot be ruled out. Also on the differential given his coarse lung sounds could jayson community-acquired pneumonia especially as he has been noted to have chills at home but has been afebrile here. ?? # DVT. -lower extremity Doppler show evidence of blood clot in the right femoral profunda vein -heparin initiated with a continuous infusion will titrate PTT to therapeutic level of geater than 50 but less than 90 seconds. Discontinue heparin. -Start elequis 5mg daily. -continue monitor symptoms for BPH. -serial aPTT -daily CBC ?? # Lower Extremity Edema/ history of congestive heart failure -Administer second furosemide 40 IV once and monitor for diuresis. -Follow up BMP after lasix -Potassium 40mEq daily. Give extra potassium as needed. -Nt-Pro BNP was 5267 on repeat -magnesium 4g IV in addition to home PO mag -increase Lisinopril to 40mg PO daily. -PT/OT Home/Home -Suitable for discharge today. ? # history of atrial fibrillation -continue home metoprolol 50 mg twice daily -discontinue diltiazem. ?? # increased urinary frequency -urinalysis with reflex -continue terazosin 10mg daily ?? # history of GERD -initiate Protonix 40 mg p.o. once daily ?? #History of cholecystitis -low-fat low carb diet -If fever spikes, Blood cx Vanc, Mirapenem ?? # tobacco use -patient uses 1.5 packs per day, will offer 24 mg nicotine patch while admitted and offer tobacco cessation counseling ?? #thyroid nodule on CT -TSH w/ reflex T4 revealed TSH of ?? # history of alcohol use -monitor symptoms for now, low threshold to initiate CIWA protocol -continue home thiamine 100mg and multivitamin ?? # history of TIA -Will discontinue home aspirin 325 mg daily Code Status: Full Code Abiodun Rodgers MD PGY-1 Science Technician [phone] 02/22/2020 7:44 AM Cosigned by Yuriy Candelario MD at 02/22/2020 4:50 PM BLEACH TESTER CH TESTER CH TESTER CH TESTER Associated attestation - Yuriy Candelario MD - 02/22/2020 4:50 PM BLEACH TESTER ATTENDING DOCUMENTATION I have seen and examined the patient on 02/22/2020. I agree with the findings and plan of care as documented in the resident's/fellow's note. and as discussed with the resident/fellow. Yuriy Candelario MD * Abiodun Rodgers MD - 02/21/2020 7:03 AM CST Daily Progress Note Medicine FIRM Name: Jania Guajardo Today: February 21, 2020 : 1950 Age: 69 y.o. male Admit: 02/19/2020 Bed: [id number] Subjective Chief complaint: DVT, Lower extremity edema Interval History: Pt's Potassium was low overnight and given additional potassium. Net loss of 2.080 liters after receiving 40 mg IV lasix. Has no complaints, denies all sx. TSH came back as 2.2 as follow up to thyroid nodule seen on CT scan. NT-BNP came back as 5267. states patient has only had a few falls and only after his gallbladder began. States he is significantly deconditioned and also would not want to do PT at home. She is not able to pick him up today but would be able to pick him up tomorrow. Objective Medications: Scheduled: ??? apixaban, 5 mg, oral, Q12H MONET ??? cholecalciferol, 1,000 Units, oral, Daily ??? folic acid, 1 mg, oral, Daily ??? lisinopriL, 20 mg, oral, Daily ??? metoprolol tartrate, 50 mg, oral, BID ??? multivitamin with minerals, 1 tablet, oral, Daily ??? nicotine, 1 patch, transdermal, Daily ??? pantoprazole DR, 40 mg, oral, Daily ??? potassium chloride ER, 40 mEq, oral, Daily ??? terazosin, 10 mg, oral, Nightly ??? thiamine, 100 mg, oral, Daily Infusions: PRN: ??? acetaminophen ??? albuterol ??? ramelteon ??? senna-docusate Vitals: 24hr Min/Max: Temp Min: 36.2 ??C (97.2 ??F) Max: 37.2 ??C (99 ??F) Pulse Min: 93 Max: 110 BP Min: 132/88 Max: 177/90 Resp Min: 12 Max: 20 SpO2 Min: 88 % Max: 97 % Most Recent: Vitals: 02/21/20 0525 BP: 132/88 Pulse: 110 Resp: 17 Temp: 37.2 ??C (99 ??F) SpO2: 90% Intake/Output Summary (Last 24 hours) at 02/21/2020 0704 Last data filed at 02/21/2020 0521 Gross per 24 hour Intake 320 ml Output 2400 ml Net -2080 ml Physical exam: General: Patient lying in hospital bed, in no acute distress. HEENT: NC/AT. EOMI. PERRL. Notably diminished visual acuity. Hard of hearing but able localize sound. Conjunctiva non-injected, no sleral icterus. Oropharynx is pink and moist without obvious lesions. Poor dentition Thyroid non-palpable. Cardiovascular: Irregularly irregular heart rate and rhythm. No murmurs, rubs, or gallops. Pulmonary: Pulmonary exam significant for wheezes in the right middle and lower lung herrera and left lower lung field. Abdominal: Soft, NTND, BS+. No palpable masses or organomegaly. No rebound or guarding. Musculoskeletal: Normal range of motion. No obvious deformity. Extremities: 2+ edema to the ankle bilaterally, 1+ edema to the knee. No heat, erythema, or visibledefect in either extremity he on the edema. Neurological: Alert and oriented x3. CN II-XII intact. Moving all extremities equally, no focal deficits. 2+ patellar reflexes bilaterally Psychiatric: Normal behavior, pleasant and conversant. ?? Lab/Diagnostic Review: Recent Results (from the past 24 hour(s)) Troponin I high-sensitivity 6-hour Collection Time: 02/20/20 7:46 AM Result Value Ref Range Trop I hs <4 <=35 ng/L Trop I hs delta See Comment ng/L Trop I hs pct delta See Comment % Trop I hs interp See Comment CBC without differential Collection Time: 02/20/20 7:46 AM Result Value Ref Range WBC 7.2 3.8 - 9.9 K/cumm Hgb 11.4 (L) 13.0 - 17.5 g/dL Hct 34.1 (L) 38.9 - 50.3 % Plt 161 150 - 400 K/cumm MPV 10.5 9.1 - 12.3 fL RBC 3.57 (L) 4.30 - 5.80 M/cumm MCV 95.5 81.3 - 96.4 fL MCH 31.9 27.1 - 33.3 pg MCHC 33.4 32.3 - 35.7 g/dL RDW CV 14.8 11.1 - 14.9 % RDW SD 52.3 (H) 35.7 - 48.1 fL NRBC abs 0.00 0.00 - 0.01 K/cumm Protime-INR Collection Time: 02/20/20 7:46 AM Result Value Ref Range PT 13.3 (H) 8.6 - 13.0 sec INR 1.2 0.8 - 1.2 aPTT Collection Time: 02/20/20 7:46 AM Result Value Ref Range aPTT 26 25 - 37 sec COVID-19 Coronavirus RNA Nasopharyngeal Collection Time: 02/20/20 12:04 PM Specimen: Nasopharyngeal Result Value Ref Range COVID-19 RNA Negative Negative First COVID-19 test? No Employeed in healthcare? Unknown status? No Group care resident? Unknown Hospitalized? No Is patient in ICU? No Symptomatic as defined by CDC? No aPTT Collection Time: 02/20/20 2:42 PM Result Value Ref Range aPTT 80 (H) 25 - 37 sec Urinalysis reflex to microscopic and culture Urine, clean voided Collection Time: 02/20/20 8:20 PM Specimen: Urine, clean voided Result Value Ref Range Color, ur Straw Yellow Clarity, ur Clear Clear Specific gravity, ur 1.005 (L) 1.010 - 1.025 pH, urine 7 Protein, ur ql Negative Negative Glucose, ur ql Negative Negative Ketones, ur Trace Negative Bilirubin, ur Negative Negative Blood, ur Negative Negative Urobilinogen, ur <2.0 <2.0 mg/dL Nitrite, ur Negative Negative Leukocyte esterase, ur Negative Negative UA reflex comment Reflex conditions for microscopic UA and culture not met. Basic metabolic panel Collection Time: 02/20/20 9:27 PM Result Value Ref Range Sodium 140 135 - 145 mmol/L Potassium, pl 2.8 (L) 3.3 - 4.9 mmol/L Chloride 103 97 - 110 mmol/L CO2 31 22 - 32 mmol/L Anion gap 6 2 - 15 mmol/L BUN 7 (L) 8 - 25 mg/dL Creatinine 0.73 (L) 0.80 - 1.30 mg/dL Glucose 127 70 - 199 mg/dL Calcium 8.5 8.5 - 10.3 mg/dL CBC without differential Collection Time: 02/20/20 9:27 PM Result Value Ref Range WBC 6.5 3.8 - 9.9 K/cumm Hgb 11.3 (L) 13.0 - 17.5 g/dL Hct 34.3 (L) 38.9 - 50.3 % Plt 163 150 - 400 K/cumm MPV 10.5 9.1 - 12.3 fL RBC 3.61 (L) 4.30 - 5.80 M/cumm MCV 95.0 81.3 - 96.4 fL MCH 31.3 27.1 - 33.3 pg MCHC 32.9 32.3 - 35.7 g/dL RDW CV 14.7 11.1 - 14.9 % RDW SD 51.7 (H) 35.7 - 48.1 fL NRBC abs 0.00 0.00 - 0.01 K/cumm Phosphorus Collection Time: 02/20/20 9:27 PM Result Value Ref Range Phosphorus, pl 2.9 2.3 - 4.5 mg/dL Protime-INR Collection Time: 02/20/20 9:27 PM Result Value Ref Range PT 13.3 (H) 8.6 - 13.0 sec INR 1.2 0.8 - 1.2 Pro B-type natriuretic peptide Collection Time: 02/20/20 9:27 PM Result Value Ref Range NT-proBNP 5,267 (H) <=300 pg/mL I have reviewed the laboratory results. Imaging Results: US Vein Duplex Lower Extremity Bilateral Complete [facility] - Department of Vascular Surgery, Vascular Laboratory [address] [place] [id number] Lower Extremity Venous Ultrasound Report ---Preliminary--- Patient Name: JANIA GUAJARDO A : 1950 (69y 9m) Study Date: 02/20/2020 7:13:42 AM Gender: M Tech: Cornell MORENO Location: ED2-18 Ref.Provider: KEZIA RAUSCH Quality: Adequate Order Provider: JAIR JAY Procedures: Vascular Report: Venous Duplex imaging was performed bilaterally in the lower extremities. The common femoral, femoral, popliteal, posterior tibial, peroneal veins were evaluated for patency, spontaneity and phasicity with Doppler, compression and augmentation maneuvers. Great saphenous vein proximal at the junction was evaluated with compression maneuvers. Indications: b/l Le swelling. Findings: Performing Crown Perforator Operator: Laurel Moreno RVT. Right: Duplex scan reveals dilated vein with echogenic, intraluminal, non-compressible material consistent with acute deep vein thrombosis in the right lower extremity. Deep veins involved include the right profunda femoral vein. All other evaluated veins on the right are patent. Left: Venous Doppler signals in the left lower extremity are within normal limits for spontaneity and phasicity and respond normally to augmentation maneuvers. No evidence of deep vein thrombus by duplex, proximal to the calf. Comments: Soft tissue masses present in the left groin area, possible lymphadenopathy. Conclusions: 1. There is acute deep vein thrombosis involving vein(s) as noted above in the right lower extremity. 2. There is no evidence of acute deep vein thrombosis on the left. Noninvasive venous studies cannot rule out isolated calf vein obstruction. 3. Soft tissue masses present in the left groin area, possible lymphadenopathy. History: HTN, HLD, CHF, TIA, Cholecystitis. Previous Studies: No previous studies for comparison. Disclaimer: The signing physician has reviewed all images pertaining to this test. These images and this report will be retained in the patient chart by the Vascular Laboratory for the legally required time period. This chart constitutes the legal record of any testing performed. Electronically Signed By: 2020-02-20 07:32:02 BLEACH TESTER CC: CC: Assessment/Plan Mr. Guajardo is a 69 y.o. male with history of Atrial fibrillation not currently on anti-coagulation, CHF, BPH, GERD, HLD, HTN, EtOH Abuse and TIA with recent admission for abdominal abscess complicated by sepsis and requiring intubation presents with chief complaint of lower extremity swelling with concern for DVT. Given the patient's history and presenting symptoms no concern for PE in the emergency department justified however CT PE protocol negative. Lower extremity Dopplers positive for DVT inthe right profunda vein. Based on given history and chart review patient's Bernardino Vasc score is 5 (7.2% risk of stroke), patient's has bled score is 6 indicating a very high risk of bleeding. Given patient has coarse lung sounds, history of congestive heart failure, a concurrent congestive heart failure exacerbation cannot be ruled out. Also on the differential given his coarse lung sounds could jayson community-acquired pneumonia especially as he has been noted to have chills at home but has been afebrile here. ?? # DVT. -lower extremity Doppler show evidence of blood clot in the right femoral profunda vein -heparin initiated with a continuous infusion will titrate PTT to therapeutic level of geater than 50 but less than 90 seconds. Discontinue heparin. -Start elequis 5mg daily. -continue monitor symptoms for BPH. -serial aPTT -daily CBC ?? # Lower Extremity Edema/ history of congestive heart failure -Administer second furosemide 40 IV once and monitor for diuresis. -Follow up BMP after lasix -Potassium 40mEq daily. Give extra potassium as needed. -Nt-Pro BNP was 5267 on repeat -PT/OT to see ? # history of atrial fibrillation -continue home metoprolol 50 mg twice daily -discontinue diltiazem. ?? # increased urinary frequency -urinalysis with reflex -continue terazosin 10mg daily ?? # history of GERD -initiate Protonix 40 mg p.o. once daily ?? #History of cholecystitis -low-fat low carb diet -If fever spikes, Blood cx Vanc, Mirapenem ?? # tobacco use -patient uses 1.5 packs per day, will offer 24 mg nicotine patch while admitted and offer tobacco cessation counseling ?? #thyroid nodule on CT -TSH w/ reflex T4 revealed TSH of ?? # history of alcohol use -monitor symptoms for now, low threshold to initiate CIWA protocol -continue home thiamine 100mg and multivitamin ?? # history of TIA -Will discontinue home aspirin 325 mg daily Code Status: Full Code Abiodun Rodgers MD PGY-1 Science Technician [phone] 02/21/2020 7:04 AM Cosigned by Yuriy Candelario MD at 02/21/2020 3:34 PM BLEACH TESTER CH TESTER CH TESTER Associated attestation - Yuriy Candelario MD - 02/21/2020 3:34 PM BLEACH TESTER ATTENDING DOCUMENTATION I have seen and examined the patient on 02/21/2020. I agree with the findings and plan of care as documented in the resident's/fellow's note. and as discussed with the resident/fellow. 69 yo hx of afib not on AC, HFrEF, BPH, GERD, HL, HTN with recent long course of cholecystitis s/p jaydon drain and intubation here now with increased LE swelling and continued weakness. Patient has no complaints and brought in by # DVT A: seen on us. Likely due to immobility P: - continue DOAC and will make sure insurance covers apixaban. . Will contact PCP to see why not on AC for afib # Acute on chronic systolic heart failure A: + pulm edema on xray and le edema. But denies sob and looks stable. Good urine output last nightafter lasix P: - continue lasix 40 IV daily Will need PT/OT to see if needs to go back to rehab given difficulty walking since leaving rehab. Yuriy Candelario MD documented in this encounter H&P Notes * Abiodun Rodgers MD - 02/20/2020 8:32 AM CST History and Physical Medicine FIRM Name: Jania Guajardo Today: February 20, 2020 : 1950 Age: 69 y.o. male Subjective The patient is a 69 y.o. male with history of Atrial fibrillation not currently on anti-coagulation, CHF, BPH, GERD, HLD, HTN, EtOH Abuse and TIA with recent admission for abdominal abscess complicated by sepsis and requiring intubation presents with chief complaint of lower extremity swelling withconcern for DVT. History provided by: The patient, poor historian The patient's Raine, reliable historian Chart review, presumably reliable HPI: Mr Guajardo was recently discharged from the hospital following and stay person outside hospital then at [facility] after having developed the gallbladder abscess which perforated and was complicated by septicemia and required ICU stay with intubation. He was discharged with percutaneous drain of his gallbladder which was removed on February 03. After the patient's hospital stay he was spend time in rehabilitation long term and then was discharged home about 3 weeks ago. Since then his has noticed that he has had continuing swelling in his lower extremities bilaterally which seems to get worse over the 3 weeks. She also notes that he has had increased urinary frequency and volume over the same period of time. She states he has been getting his home furosemide 20 mg once daily and despite this the swelling still gotten worse. She notes over the same period of time that his functional status has declined and he has gotten weaker and less active over the 3 week period. He has had significant difficulty with climbing and going down the stairs in her home. Two days prior to his presentation the hospital she has noticed that heendorsed episodes of chills and sweating. She has also noticed that he had become more short of breath the patient denies this. She denies any fever coughs that he has complained of in the patient denies any fever or cough. On the day of presentation the patient was getting out of bed and he slid slowly out of bed onto the floor. Patient states he does not feel strong enough to correct his fall and just slid slow the floor. He denies dizziness or lightheadedness. There was no loss of consciousness no head strike no trauma. After the patient's fall on a bed EMS was called the patient was brought to [facility] for further evaluation. On presentation emergency department there is concern for PE and DVT given his shortness of breath and leg swelling. A CT PE was performed and was negative. However a lower extremity ultrasound demonstrated a DVT in the right profunda vein. Given the patient's history of heart failure lower extremity swelling bilaterally there is also concern for a possible CHF exacerbation. Troponins were insignificant. Coagulation studies notable for PT to 13.3, INR 1.2, APTT 26. Patient's potassium was low on presentation to 3.2, albumin 3.1, and creatinine of 0.66. Chemistries otherwise unremarkable. . On interview admission the patient denies having leg swelling, shortness of breath, cough, fevers, chills, abdominal pain, nausea, vomiting, diarrhea. He endorses urinary incontinence. He states he did not feel come he had to come the hospital but did so on his 's recommendation. He endorses several weeks of decreased activity and weakness at home. He endorses having challenges getting around. Patient states he is a 1.5 ppd smoker for 60 years. States he drinks 2-3 margaritas a day but denies any previous withdrawal symptoms denies other substance abuse or use. Past Medical History: Diagnosis Date ??? Atrial [...] ??? FLUID DRAIN SOFT TISSUE N/A 12/19/2019 HOME MEDICATIONS : acetaminophen 500 mg capsule aspirin 325 mg enteric coated tablet cholecalciferol (VITAMIN D-3) 5,000 unit tablet diltiazem (TIAZAC) 360 mg 24 hr capsule folic acid (FOLVITE) 1 mg tablet levalbuterol (XOPENEX) 1.25 mg/3 mL nebulizer solution magnesium oxide (MAG-OX) 400 mg (241.3 mg elemental magnesium) tablet metoprolol tartrate (LOPRESSOR) 50 mg immediate release tablet lxtcqnwl-vgedhkw-yvpi-lutein tablet omeprazole (PriLOSEC) 20 mg capsule ondansetron ODT (ZOFRAN-ODT) 4 mg disintegrating tablet polyethylene glycol (MIRALAX) 17 gram packet QUEtiapine (SEROquel) 25 mg tablet sodium chloride 0.9% injection terazosin (HYTRIN) 10 mg capsule thiamine (VITAMIN B1) 100 mg tablet Allergies Allergen Reactions ??? Penicillins Hives Social History Tobacco Use ??? Smoking status: Current Every Day Smoker Packs/day: 1.00 ??? Smokeless tobacco: Never Used Substance Use Topics ??? Alcohol use: Yes Comment: limited Family History Problem Relation Age of Onset ??? Lung cancer Father Review of Systems Review of systems as per HPI and, otherwise all other systems are negative. Objective Vitals: 24hr Min/Max: Pulse Min: 93 Max: 115 BP Min: 132/85 Max: 178/105 Resp Min: 12 Max: 20 SpO2 Min: 88 % Max: 97 % Most Recent Vitals: Vitals: 02/20/20 1330 BP: 148/85 Pulse: 105 Resp: 12 Temp: SpO2: 97% Intake/Output Summary (Last 24 hours) at 02/20/2020 1746 Last data filed at 02/20/2020 1615 Gross per 24 hour Intake 120 ml Output -- Net 120 ml Physical exam: General: Patient lying in hospital bed, in no acute distress. HEENT: NC/AT. EOMI. PERRL. Notably diminished visual acuity. Hard of hearing but able localize sound. Conjunctiva non-injected, no sleral icterus. Oropharynx is pink and moist without obvious lesions. Poor dentition Thyroid non-palpable. Cardiovascular: Irregularly irregular heart rate and rhythm. No murmurs, rubs, or gallops. Pulmonary: Pulmonary exam significant for wheezes in the right middle and lower lung herrera and left lower lung field. Abdominal: Soft, mildly distended, diffusely tender, BS+. No palpable masses or organomegaly. No rebound or guarding. Musculoskeletal: Normal range of motion. No obvious deformity. Extremities: 2+ edema to the ankle bilaterally, 1+ edema to the knee. No heat, erythema, or visibledefect in either extremity he on the edema. Neurological: Alert and oriented x3. CN II-XII intact. Moving all extremities equally, no focal deficits. 2+ patellar reflexes bilaterally Psychiatric: Normal behavior, pleasant and conversant. Lab/Diagnostic Review: Recent Results (from the past 24 hour(s)) CBC with auto differential Collection Time: 02/19/20 6:57 PM Result Value Ref Range WBC 9.8 3.8 - 9.9 K/cumm Hgb 12.4 (L) 13.0 - 17.5 g/dL Hct 36.6 (L) 38.9 - 50.3 % Plt 156 150 - 400 K/cumm MPV 10.3 9.1 - 12.3 fL RBC 3.89 (L) 4.30 - 5.80 M/cumm MCV 94.1 81.3 - 96.4 fL MCH 31.9 27.1 - 33.3 pg MCHC 33.9 32.3 - 35.7 g/dL RDW CV 15.0 (H) 11.1 - 14.9 % RDW SD 51.8 (H) 35.7 - 48.1 fL NRBC abs 0.00 0.00 - 0.01 K/cumm Basic metabolic panel Collection Time: 02/19/20 6:57 PM Result Value Ref Range Sodium 139 135 - 145 mmol/L Potassium, pl 3.2 (L) 3.3 - 4.9 mmol/L Chloride 102 97 - 110 mmol/L CO2 28 22 - 32 mmol/L Anion gap 9 2 - 15 mmol/L BUN 10 8 - 25 mg/dL Creatinine 0.66 (L) 0.80 - 1.30 mg/dL Glucose 129 70 - 199 mg/dL Calcium 8.9 8.5 - 10.3 mg/dL Troponin I high-sensitivity series (baseline, 2hr, 4hr, 6hr) Collection Time: 02/19/20 6:57 PM Result Value Ref Range Trop I hs 4 <=35 ng/L aPTT Collection Time: 02/19/20 6:57 PM Result Value Ref Range aPTT 26 25 - 37 sec Protime-INR Collection Time: 02/19/20 6:57 PM Result Value Ref Range PT 13.6 (H) 8.6 - 13.0 sec INR 1.3 (H) 0.8 - 1.2 Differential, auto Collection Time: 02/19/20 6:57 PM Result Value Ref Range Neutrophil abs 8.4 (H) 1.7 - 6.5 K/cumm Imm gran abs 0.0 0.0 - 0.1 K/cumm Lymphocyte abs 0.7 (L) 0.8 - 3.3 K/cumm Monocyte abs 0.7 0.2 - 0.8 K/cumm Eosinophil abs 0.0 0.0 - 0.5 K/cumm Basophil abs 0.0 0.0 - 0.1 K/cumm Neutrophil pct 85.7 % Imm gran pct 0.2 % Lymphocyte pct 6.8 % Monocyte pct 7.1 % Eosinophil pct 0.1 % Basophil pct 0.1 % Albumin Collection Time: 02/19/20 6:57 PM Result Value Ref Range Albumin 3.1 (L) 3.5 - 5.0 g/dL TSH reflex to free T4 Collection Time: 02/19/20 6:57 PM Result Value Ref Range TSH 2.02 0.30 - 4.20 mcIUnit/mL Pro B-type natriuretic peptide Collection Time: 02/19/20 6:57 PM Result Value Ref Range NT-proBNP 3,432 (H) <=300 pg/mL Troponin I high-sensitivity 2-hour Collection Time: 02/19/20 9:40 PM Result Value Ref Range Trop I hs <4 <=35 ng/L Trop I hs delta 0 ng/L Trop I hs interp Insignificant Troponin I high-sensitivity 4-hour Collection Time: 02/19/20 11:02 PM Result Value Ref Range Trop I hs <4 <=35 ng/L Trop I hs delta 0 ng/L Trop I hs interp Insignificant Troponin I high-sensitivity 6-hour Collection Time: 02/20/20 7:46 AM Result Value Ref Range Trop I hs <4 <=35 ng/L Trop I hs delta See Comment ng/L Trop I hs pct delta See Comment % Trop I hs interp See Comment CBC without differential Collection Time: 02/20/20 7:46 AM Result Value Ref Range WBC 7.2 3.8 - 9.9 K/cumm Hgb 11.4 (L) 13.0 - 17.5 g/dL Hct 34.1 (L) 38.9 - 50.3 % Plt 161 150 - 400 K/cumm MPV 10.5 9.1 - 12.3 fL RBC 3.57 (L) 4.30 - 5.80 M/cumm MCV 95.5 81.3 - 96.4 fL MCH 31.9 27.1 - 33.3 pg MCHC 33.4 32.3 - 35.7 g/dL RDW CV 14.8 11.1 - 14.9 % RDW SD 52.3 (H) 35.7 - 48.1 fL NRBC abs 0.00 0.00 - 0.01 K/cumm Protime-INR Collection Time: 02/20/20 7:46 AM Result Value Ref Range PT 13.3 (H) 8.6 - 13.0 sec INR 1.2 0.8 - 1.2 aPTT Collection Time: 02/20/20 7:46 AM Result Value Ref Range aPTT 26 25 - 37 sec COVID-19 Coronavirus RNA Nasopharyngeal Collection Time: 02/20/20 12:04 PM Specimen: Nasopharyngeal Result Value Ref Range COVID-19 RNA Negative Negative First COVID-19 test? No Employeed in healthcare? Unknown status? No Group care resident? Unknown Hospitalized? No Is patient in ICU? No Symptomatic as defined by CDC? No aPTT Collection Time: 02/20/20 2:42 PM Result Value Ref Range aPTT 80 (H) 25 - 37 sec I have reviewed the laboratory results. Imaging Results: CT Chest PE W Contrast Narrative: EXAMINATION: Computed tomography of the chest with intravenous contrast HISTORY: 61-year-old man with gallbladder fossa abscess status post percutaneous drainage after cholecystectomy 5 months ago. He is presenting with weakness, shortness of breath, and cough. TECHNIQUE: Transaxial computed tomographic images of the chest were obtained with intravenous contrast according to the pulmonary embolism protocol after the uneventful administration of 100 mL Opti-Ray 350 intravenous contrast. COMPARISON: Outside hospital abdomen and pelvis CT 12/18/2019. FINDINGS: There is asymmetric enlargement of the thyroid with the right thyroid lobe consisting of a large, heterogeneous nodule measuring 3.5 cm. No supraclavicular, or axillary lymphadenopathy. There are mildly prominent mediastinal nodes, likely reactive. There is an enlarged right hilar lymph node node measuring 2.7 x 2.0 cm on axial image 11. Calcified left hilar nodes and calcified nodule left lung base are compatible with old granulomatous disease. No acute pulmonary embolism. There is an ill-defined filling defect within the right lower lobe superior segment pulmonary artery which has a configuration favored to represent flow-related artifact. Three-vessel coronary artery calcifications are noted. There is biatrial enlargement. There is a small pericardial effusion, similar compared to the prior examination. There has been interval increase in small right greater than left pleural effusions. No focal consolidation. Again seen is peripheral reticulation in the lungs likely representing scarring or fibrosis. There is right greater than left bibasilar atelectasis. No suspicious pulmonary nodule. No pneumothorax. Limited images of the upper abdomen demonstrate a demonstrate partially visualized changes of cholecystectomy and interval decrease in size of the lobulated rim-enhancing fluid collection adjacent to the right shabnam-liver and the ventral abdominal wall. This measures 9.9 x 2.3 cm on axial image 338, previously 9.8 x 4.7 cm. Communication with the gallbladder fossa is again seen. No suspicious osseous lesion. Unchanged superior endplate compression deformity of T11. Impression: 1. No acute pulmonary embolism. 2. Interval increase in small right greater than left bilateral pleural effusions. Stable pericardial effusion and cardiomegaly. 3. Large right thyroid nodule, which may represent multinodular goiter. This may be further evaluated with dedicated thyroid ultrasound nonemergent setting. 4. Interval decrease in size of partially visualized rim-enhancing fluid collection arising from the gallbladder fossa and extending to the ventral abdominal wall. Dictated by: Any Martin M.D. The radiology attending physician has personally reviewed this study, and had reviewed and/or edited this written report and agrees with it. Electronically signed by: Rui Heard M.D. US Vein Duplex Lower Extremity Bilateral Complete [facility] - Department of Vascular Surgery, Vascular Laboratory [address] [place] [id number] Lower Extremity Venous Ultrasound Report ---Preliminary--- Patient Name: JANIA GUAJARDO A : 1950 (69y 9m) Study Date: 02/20/2020 7:13:42 AM Gender: M Tech: Cornell MORENO Location: ED2-18 Ref.Provider: KEZIA RAUSCH Quality: Adequate Order Provider: JAIR JAY Procedures: Vascular Report: Venous Duplex imaging was performed bilaterally in the lower extremities. The common femoral, femoral, popliteal, posterior tibial, peroneal veins were evaluated for patency, spontaneity and phasicity with Doppler, compression and augmentation maneuvers. Great saphenous vein proximal at the junction was evaluated with compression maneuvers. Indications: b/l Le swelling. Findings: Performing Crown Perforator Operator: Laurel Moreno RVT. Right: Duplex scan reveals dilated vein with echogenic, intraluminal, non-compressible material consistent with acute deep vein thrombosis in the right lower extremity. Deep veins involved include the right profunda femoral vein. All other evaluated veins on the right are patent. Left: Venous Doppler signals in the left lower extremity are within normal limits for spontaneity and phasicity and respond normally to augmentation maneuvers. No evidence of deep vein thrombus by duplex, proximal to the calf. Comments: Soft tissue masses present in the left groin area, possible lymphadenopathy. Conclusions: 1. There is acute deep vein thrombosis involving vein(s) as noted above in the right lower extremity. 2. There is no evidence of acute deep vein thrombosis on the left. Noninvasive venous studies cannot rule out isolated calf vein obstruction. 3. Soft tissue masses present in the left groin area, possible lymphadenopathy. History: HTN, HLD, CHF, TIA, Cholecystitis. Previous Studies: No previous studies for comparison. Disclaimer: The signing physician has reviewed all images pertaining to this test. These images and this report will be retained in the patient chart by the Vascular Laboratory for the legally required time period. This chart constitutes the legal record of any testing performed. Electronically Signed By: 2020-02-20 07:32:02 BLEACH TESTER CC: CC: Assessment/Plan Mr. Guajardo is a 69 y.o. male with history of Atrial fibrillation not currently on anti-coagulation, CHF, BPH, GERD, HLD, HTN, EtOH Abuse and TIA with recent admission for abdominal abscess complicated by sepsis and requiring intubation presents with chief complaint of lower extremity swelling with concern for DVT. Given the patient's history and presenting symptoms no concern for PE in the emergency department justified however CT PE protocol negative. Lower extremity Dopplers positive for DVT inthe right profunda vein. Based on given history and chart review patient's Bernardino Vasc score is 5 (7.2% risk of stroke), patient's has bled score is 6 indicating a very high risk of bleeding. Given patient has coarse lung sounds, history of congestive heart failure, a concurrent congestive heart failure exacerbation cannot be ruled out. Also on the differential given his coarse lung sounds could jayson community-acquired pneumonia especially as he has been noted to have chills at home but has been afebrile here. # DVT. -lower extremity Doppler show evidence of blood clot in the right femoral profunda vein -heparin initiated with a continuous infusion will titrate PTT to therapeutic level of geater than 50 but less than 90 seconds. Discontinue heparin. -Start elequis 5mg daily. -continue monitor symptoms for BPH. -serial aPTT -daily CBC # Lower Extremity Edema/ history of congestive heart failure -Administer furosemide to 40 IV once and monitor for diuresis. Consider -continue home potassium 20mEq daily -Start lisinopril 20mg daily -Nt-Pro BNP # history of atrial fibrillation -continue home metoprolol 50 mg twice daily -Hold home diltiazem 360mg extended release once daily -discontinue diltiazem. # increased urinary frequency -urinalysis with reflex -continue terazosin 10mg daily # history of GERD -initiate Protonix 40 mg p.o. once daily #History of cholecystitis -low-fat low carb diet -If fever spikes, Blood cx Vanc, Mirapenem # tobacco use -patient uses 1.5 packs per day, will offer 24 mg nicotine patch while admitted and offer tobacco cessation counseling #thyroid nodule on CT -TSH w/ reflex T4 # history of alcohol use -monitor symptoms for now, low threshold to initiate CIWA protocol -continue home thiamine 100mg and multivitamin # history of TIA -Will discontinue home aspirin 325 mg daily Abiodun Rodgers MD PGY-1 Science Technician 5:46 PM 02/20/20 Cosigned by Yuriy Candelario MD at 02/20/2020 10:49 PM BLEACH TESTER CH TESTER CH TESTER Associated attestation - Yuriy Candelario MD - 02/20/2020 10:49 PM BLEACH TESTER ATTENDING DOCUMENTATION I have seen and examined the patient on 02/20/2020. I agree with the findings and plan of care as documented in the resident's/fellow's note. and as discussed with the resident/fellow. 69 yo hx of afib not on AC, HFrEF, BPH, GERD, HL, HTN with recent long course of cholecystitis s/p jaydon drain and intubation here now with increased LE swelling and continued weakness. Patient has no complaints and brought in by # DVT A: seen on us. Likely due to immobility P: - will dc heparin and start DOAC. Will contact PCP to see why not on AC for afib - can hold ASA # Acute on chronic systolic heart failure A: + pulm edema on xray and le edema. But denies sob and looks stable P: - will give lasix 40 IV and see how he responds Will need PT/OT to see if needs to go back to rehab given difficulty walking since leaving rehab. Ihope that he has not exhausted his insurance days for rehab. Yuriy Candelario MD documented in this encounter Nursing Notes * Elena Pradhan RN - 02/22/2020 12:03 PM CST Pt discharge home self care. At time of discharge pt AOx4 no pain or acute distress noted. Home medications and discharge instructions reviewed with pt including: drug name, dose, route, and side effects. Pt's family to provide transportation. CH TESTER * Elena Pradhan RN - 02/22/2020 7:57 AM CST Abiodun Rodgers MD notified of CIWA score change from 2 to 10 due to BP. CH TESTER documented in this encounter ED Notes * Kezia Rausch MD - 02/19/2020 9:20 PM CST mayda Feb 19, 2020 CC: I fell out of bed and was short of breath HPI:pt with a hx of intraabdominal abscess from a perforated gall bladder complicated by sepsis requiring intubation and reintervention for abscess recurrence. Hx of a fib . On the day block captain he became sob. He states his legs have been swollen ROS: there are no constitutional, eyes, ears/nose/mouth/throat, cardiovascular, respiratory, GI, , musculoskeletal, integumentory, neurological , psychiatric, endocrine, hematologic, lymphatic, allergic, immunologic complaints. Past Medical:hypercholesterolemia, ht MEDS: see nurses notes ALL: see nurses notes Family history:no dm Social history: smoker Vital signs: reviewed GENERAL: pt with pedal edema SKIN: no rashes or masses HEENT: PERRL, EOMs intact C+S clear NECK: no thyromegaly or masses LYMPH: no supraclavicular or cervical adenopathy CHEST: clear to A+P CARDIAC: no JVD, nl s1, s2 , no murmurs, gallops or rubs BACK: no masses or tenderness ABD: nl bs, no HSmegaly non tender NEURO: alert, oriented, 5/5 strength in extremities, no pronator drift EXT: no clubbing, cyanosis or edema ASSESSMENT/PLAN: pt with hx of a fib and pedal edema, plan cxr , labs and trops. Plan covid test I have seen and examined the patient on 02/19/2020. I agree with the findings and plan of care as documented in the resident's note. Kezia Rausch MD 02/20/20 0231 CH TESTER * Jair Jay MD - 02/19/2020 8:02 PM CST HPI Chief Complaint Patient presents with ??? Shortness of Breath Jania Jovanna Guajardo is a 61-year-old male with a past medical history of AFib not on anticoagulation, he congestive heart failure, recent hospitalization for intra- abdominal abscess complicated by sepsis requiring intubation, presenting with shortness of breath and bilateral leg swelling. Patient is very poor historian. He is able to tell me that he has had some shortness of breath for the past week or so. He is unsure about how long his legs have been swollen. He states that EMS was called because heslid off of his chair onto his butt. He is not complaining of any but pain. In speaking to the patient's she says that he was recently discharged after a long hospital course about 3 weeks ago. Ever since then he has not been doing well. He has had episodes of the chills, increased shortness of breath and new bilateral leg swelling that has not been present in the past. He does take Lasix 20mg daily. He also has poorly controlled AFib with RVR. According to cardiology note they have has struggled to control it with metoprolol 100 b.i.d. and diltiazem 360 q.d. he denies any chest pain, abdominal pain, nausea, vomiting, diarrhea, fevers, sick contacts. Patient History: Patient Active Problem List Diagnosis Date Noted ??? Intra-abdominal abscess (CMS/HCC) 12/28/2019 ??? Cholecystitis 12/20/2019 ??? Hypercholesterolemia 04/26/2010 Class: Chronic ??? Hypertension 04/26/2010 Class: Chronic ??? Heartburn 04/26/2010 Class: Chronic Past Medical History: Diagnosis Date ??? Atrial [...] ??? FLUID DRAIN SOFT TISSUE N/A 12/19/2019 Family History Problem Relation Age of Onset ??? Lung cancer Father Social History Tobacco Use ??? Smoking status: Current Every Day Smoker Packs/day: 1.00 ??? Smokeless tobacco: Never Used Substance Use Topics ??? Alcohol use: Yes Comment: limited ??? Drug use: Not on file Social History Social History Narrative Cigarette smoker : (Added by TW Conv) Review of Systems Review of Systems Constitutional: Negative for chills and fever. HENT: Negative for ear pain and sore throat. Eyes: Negative for pain and visual disturbance. Respiratory: Positive for shortness of breath. Negative for cough. Cardiovascular: Negative for chest pain and palpitations. Gastrointestinal: Negative for abdominal pain and vomiting. Genitourinary: Negative for dysuria and hematuria. Musculoskeletal: Negative for arthralgias and back pain. Skin: Negative for color change and rash. Neurological: Negative for seizures and syncope. All other systems reviewed and are negative. Physical Exam ED Triage Vitals Temp Pulse Resp BP SpO2 02/19/20 1728 02/19/20 1727 02/19/20 1727 02/19/20 1727 02/19/20 1727 36.7 ??C (98.1 ??F) 114 18 140/88 94 % Temp src Heart Rate Source Patient Position BP Location FiO2 (%) 02/19/20 1728 -- -- -- -- Temporal Physical Exam Vitals signs and nursing note reviewed. Constitutional: Appearance: He is well-developed. HENT: Head: Normocephalic and atraumatic. Eyes: Conjunctiva/sclera: Conjunctivae normal. Neck: Musculoskeletal: Neck supple. Cardiovascular: Rate and Rhythm: Tachycardia present. Rhythm irregular. Heart sounds: Normal heart sounds. No murmur. Pulmonary: Effort: Pulmonary effort is normal. No respiratory distress. Breath sounds: Examination of the right-middle field reveals rhonchi. Examination of the left-middle field reveals rhonchi. Examination of the right- lower field reveals rhonchi and rales. Examinationof the left-lower field reveals rhonchi. Rhonchi and rales present. Abdominal: Palpations: Abdomen is soft. Tenderness: There is no abdominal tenderness. Musculoskeletal: Right lower leg: Edema present. Left lower leg: Edema present. Skin: General: Skin is warm and dry. Neurological: Mental Status: He is alert and oriented to person, place, and time. NO Guajardo is a 61 year male with past medical history of congestive heart failure, AFib not on anticoagulation, recent hospitalization for an intra- abdominal infection complicated by sepsis requiring intubation who presents with shortness of breath described above. Differential diagnosis is congestive heart failure exacerbation, PE, less likely COPD exacerbation unlikely ACS. Plan will be to get CBC, CMP, troponin, chest x-ray. Will get bedside ultrasound to evaluate for fluid on lungs and overall cardiac function. Attending Summary of Care No diagnosis found. Jair Jay MD Resident 02/19/20 3286 Cosigned by Kezia Raucsh MD at 02/20/2020 2:29 AM BLEACH TESTER CH TESTER CH TESTER * Jannie Sloan RN - 02/19/2020 6:46 PM CST Bed: ED2-18 Expected date: Expected time: Means of arrival: Ambulance Comments: Jannie Sloan RN 02/19/20 4424 CH TESTER * Emerita Álvarez RN - 02/19/2020 5:23 PM CST Patient here via EMS for weakness, SOB and cough. Patient states that he has been intermittently SOB and had a non-productive cough for awhile but is unable to tell me how long. He slipped out of bed today and EMS was called for a lift assist but patient came in d/t increasing weakness that started today. He is a smoker. O2 according to EMS was 92% on room air. Patient placed on 2L O2 per EMS.Patient endorses having 2 margaritas tonight. CH TESTER documented in this encounter Miscellaneous Notes * Plan of Care - Elena Pradhan RN - 02/22/2020 11:36 AM CST Goals: Clinical Goals for the Shift: monitor vs and signs of alcohol withdrawal, give meds and do lab works Summary: Patient ready for discharge Problem: Health Behavior: Goal: Understanding of discharge needs will improve 02/22/2020 1136 by Elena Pradhan RN Outcome: Completed 02/22/2020944 by Elena Pradhan RN Outcome: Progressing Problem: Lack of Knowledge: Goal: Ability to state ways to decrease the risk of falls will improve 02/22/2020 1136 by Elena Pradhan RN Outcome: Completed 02/22/2020944 by Elena Pradhan RN Outcome: Progressing Problem: Safety: Goal: Will remain free from falls 02/22/2020 1136 by Elena Pradhan RN Outcome: Completed 02/22/2020944 by Elena Pradhan RN Outcome: Progressing Goal: Will remain free from injury from falls 02/22/2020 1136 by Elena Pradhan RN Outcome: Completed 02/22/2020944 by Elena Pradhan RN Outcome: Progressing Goal: Will remain free from falls and injury in home environment 02/22/2020 1136 by Elena Pradhan RN Outcome: Completed 02/22/2020944 by Elena Pradhan RN Outcome: Progressing Problem: Activity: Goal: Risk for activity intolerance will decrease 02/22/2020 1136 by Elena Pradhan RN Outcome: Completed 02/22/2020 0945 by Elena Pradhan RN Outcome: Progressing Problem: Lack of Knowledge: Goal: Knowledge of diagnostic tests will improve 02/22/2020 1136 by Elena Pradhan RN Outcome: Completed 02/22/2020 0945 by Elena Pradhan RN Outcome: Progressing Goal: Knowledge of disease or condition will improve 02/22/2020 1136 by Elena Pradhan RN Outcome: Completed 02/22/2020944 by Elena Pradhan RN Outcome: Progressing Goal: Knowledge of safety precautions will improve 02/22/2020 1136 by Elena Pradhan RN Outcome: Completed 02/22/2020944 by Elena Pradhan RN Outcome: Progressing Goal: Knowledge of the prescribed therapeutic regimen will improve 02/22/2020 1136 by Elena Pradhan RN Outcome: Completed 02/22/2020944 by Elena Pradhan RN Outcome: Progressing Problem: Health Behavior: Goal: Ability to state signs and symptoms to report to health care provider will improve 02/22/2020 113 by Elena Pradhan RN Outcome: Completed 02/22/2020944 by Elena Pradhan RN Outcome: Progressing Problem: Physical Regulation: Goal: Ability to maintain clinical measurements within normal limits will improve 02/22/2020 1136 by Elena Pradhan RN Outcome: Completed 02/22/2020944 by Elena Pradhan RN Outcome: Progressing Problem: Infection Risk: Goal: Will remain free from infection 02/22/2020 1136 by Elena Pradhan RN Outcome: Completed 02/22/2020944 by Elena Pradhan RN Outcome: Progressing Problem: Safety: Goal: Ability to remain free from injury will improve 02/22/2020 1136 by Elena Pradhan RN Outcome: Completed 02/22/202045 by Elena Pradhan RN Outcome: Progressing Goal: Will remain free from falls 02/22/2020 1136 by Elena Pradhan RN Outcome: Completed 02/22/2020 0945 by Elena Pradhan RN Outcome: Progressing Problem: Self-Care: Goal: Ability to participate in self-care as condition permits will improve 02/22/2020 1136 by Elena Pradhan RN Outcome: Completed 02/22/2020 09 by Elena Pradhan RN Outcome: Progressing Problem: Sensory: Goal: Pain level will decrease 02/22/2020 1136 by Elena Pradhan RN Outcome: Completed 02/22/2020 09 by Elena Pradhan RN Outcome: Progressing Goal: Ability to develop a pain control plan will improve 02/22/2020 1136 by Elena Pradhan RN Outcome: Completed 02/22/2020944 by Elena Pradhan RN Outcome: Progressing Problem: Skin Integrity: Goal: Risk for impaired skin integrity will decrease 02/22/2020 1136 by Elena Prdahan, GAURAV Outcome: Completed 02/22/2020944 by Elena Pradhan RN Outcome: Progressing Problem: Tissue Perfusion: Goal: Risk factors for ineffective tissue perfusion will decrease 02/22/2020 1136 by Elena Pradhan RN Outcome: Completed 02/22/2020944 by Elena Pradhan RN Outcome: Progressing Problem: Lack of Knowledge: Goal: Knowledge on safety and abstaining from self-injurious behavior will increase 02/22/2020 1136 by Elena Pradhan RN Outcome: Completed 02/22/2020944 by Elena Pradhan RN Outcome: Progressing Goal: Knowledge of therapies/resources will increase 02/22/2020 1136 by Elena Pradhan RN Outcome: Completed 02/22/2020944 by Elena Pradhan RN Outcome: Progressing Problem: Health Behavior: Goal: Ability to manage health-related needs will improve 02/22/2020 1136 by Elena Pradhan RN Outcome: Completed 02/22/2020944 by Elena Pradhan RN Outcome: Progressing Problem: Low Risk for Self-Injurious Behavior: Goal: Ability to remain free from injury will improve Description: (Low Risk) 02/22/2020 1136 by Elena Pradhan RN Outcome: Completed 02/22/2020 0945 by Elena Pradhan RN Outcome: Progressing CH TESTER * Plan of Care - Sisi Boland RN - 02/22/2020 10:53 AM CST Patient admitted to observation unit. Plan is for patient to discharge home when medically ready. No new home needs identified at this time. If any further case management/social work needs arise please call covering comp field case manager. Follow up appointment scheduled with PCP. Sisi Boland RN, Executive Director Global Brand Marketing [phone] CH TESTER * Plan of Care - Elena Pradhan RN - 02/22/2020 9:45 AM CST Goals: Clinical Goals for the Shift: monitor vs and signs of alcohol withdrawal, give meds and do lab works Summary: Problem: Health Behavior: Goal: Understanding of [...] tissue perfusion will decrease Outcome: Progressing Problem: Lack of Knowledge: Goal: Knowledge on safety and abstaining from self-injurious behavior will increase Outcome: Progressing Goal: Knowledge of therapies/resources will increase Outcome: Progressing Problem: Health Behavior: Goal: Ability to manage health-related needs will improve Outcome: Progressing Problem: Low Risk for Self-Injurious Behavior: Goal: Ability to remain free from injury will improve Description: (Low Risk) Outcome: Progressing CH TESTER * Plan of Marilyn - Dmitry Carr RN - 02/21/2020 9:27 PM CST Problem: Health Behavior: Goal: Understanding [...] tissue perfusion will decrease Outcome: Progressing Problem: Lack of Knowledge: Goal: Knowledge on safety and abstaining from self-injurious behavior will increase Outcome: Progressing Goal: Knowledge of therapies/resources will increase Outcome: Progressing Problem: Health Behavior: Goal: Ability to manage health-related needs will improve Outcome: Progressing Problem: Low Risk for Self-Injurious Behavior: Goal: Ability to remain free from injury will improve Description: (Low Risk) Outcome: Progressing Goals: Clinical Goals for the Shift: monitor vs and signs of alcohol withdrawal, give meds and do lab works Summary: patient had vs monitored and were WDL, given due med, on alcohol withdrawal assessment scoring between 1-2, lab works done,lower extremities swelling reducing CH TESTER * Plan of Marilyn - Quita Flores RN - 02/21/2020 9:54 AM CST Goals: Clinical Goals for the Shift: Pt remains fall and injury free Summary: Problem: Health Behavior: Goal: Understanding of [...] tissue perfusion will decrease Outcome: Progressing Problem: Lack of Knowledge: Goal: Knowledge on safety and abstaining from self-injurious behavior will increase Outcome: Progressing Goal: Knowledge of therapies/resources will increase Outcome: Progressing CH TESTER * Plan of Care - Dmitry Carr RN - 02/21/2020 3:16 AM CST Problem: Health Behavior: Goal: Understanding of [...] tissue perfusion will decrease Outcome: Progressing Problem: Lack of Knowledge: Goal: Knowledge on safety and abstaining from self-injurious behavior will increase Outcome: Progressing Goal: Knowledge of therapies/resources will increase Outcome: Progressing Problem: Health Behavior: Goal: Ability to manage health-related needs will improve Outcome: Progressing Problem: Low Risk for Self-Injurious Behavior: Goal: Ability to remain free from injury will improve Description: (Low Risk) Outcome: Progressing Goals: Clinical Goals for the Shift: monitor vs , give med, do lab works, reinforce fall prevention precaution,assist patient meets ADL Summary: patient had vs monitored and were WDL, given due med, lab works done, assisted meets ADL, no fall reported CH TESTER * Plan of Marilyn - Quita Flores RN - 02/20/2020 7:17 PM CST Goals: Clinical Goals for the Shift: Pt remains fall and injury Summary: Problem: Health Behavior: Goal: Understanding of [...] health care provider will improve Outcome: Progressing CH TESTER * Plan of Quita Ellis RN - 02/20/2020 6:00 PM CST Problem: Lack of Knowledge: Goal: Knowledge of diagnostic tests will improve Outcome: Progressing Goal: Knowledge of disease or condition will improve Outcome: Progressing Goal: Knowledge of safety precautions will improve Outcome: Progressing Goal: Knowledge of the prescribed therapeutic regimen will improve Outcome: Progressing Problem: Health Behavior: Goal: Ability to state signs and symptoms to report to health care provider will improve Outcome: Progressing Goals: Clinical Goals for the Shift: Pt remains fall and injury Summary: CH TESTER * Hospital Course - Abiodun Rodgers MD - 02/20/2020 12:28 PM CST # DVT. On presentation to the hospital the patient was given CT PE Protocol which was negative buy lower extremity Dopplers showed evidence of blood clot in the right femoral profunda vein. Heparin was initiated with a continuous infusion and was titrated to a PTT of 80. Patient was transitioned to Eliquis 5mg PO daily and provided a 30 day supply of Eliquis at discharge. Patient was evaluated by PT andOT who both recommended the patient return home. ?? # Lower Extremity Edema/ history of congestive heart failure -The patient presented with increased bilateral lower extremity edema. He was given Two rounds of 40mg IV lasix and achieved rapid diuresis and improvement in symptoms. We increased his home furosemide to 40 b.i.d. and continued his home potassium and mangesium regimen. WE added lisinopril 40mg PO daily to the patient's regimen. ?? # history of atrial fibrillation We simplified the patient's home rate control medications by discontinuing diltiazem and coreg but continued his/ metoprolol 50 mg twice daily ?? # history of GERD -We changed the patients PPI to Protonix 40 mg p.o. once daily ? # history of TIA -We discontinued his home Aspirin regimen as the patient was discharged on Eliquis. CH TESTER CH TESTER * Significant Event - Naun-Malena Purdy MD - 02/20/2020 8:20 AM BLEACH TESTER Medicine Triage Attending Note Jania Guajardo is a patient currently being evaluated for possible admission to [facility]. Upon review of this patient's chart I recommend that this patient be considered low risk for for COVID-19 because they have the following: [x] Fewer than 3 COVID-19 compatible symptoms and no known exposures that place them at risk for hiral COVID-19. -SOB, Cough [] No COVID-19 compatible symptoms but a known exposure that places them at risk for having contracted COVID-19. [] No clear COVID-19 compatible symptoms or exposures but unable to be confidently assessed from the patient. Per [facility] policy, patients assessed as being low risk for COVID-19 require COVID-19 RT-PCR testing (standalone or RVP) and require COVID-19 level isolation while awaiting these COVID-19 test results, however these patients can [id number] in any private room (including positive pressure rooms) and do NOT require a COVID-19 unit or ICU bed. A single negative COVID-19 test (standalone or RVP) result is sufficient for removing these patients from COVID-19 isolation precautions, to do so please contact [facility] [employer] Operator On-Call ([email or web address], utilize the on-call tab to locate the right person). If you are concerned that a low-riskpatient should remain on COVID-19 precautions despite a negative COVID- 19 test, please describe your concerns to Infection Prevention. Malena Magallon MD COVID-19 Symptoms: - Clinical (must be new or worsening) : Fever, chills, cough, shortness of breath, oxygen requirement, muscle aches/pains, sore throat, headaches, loss of smell/taste - Imaging (must be new or worsening): Infiltrate(s) on Chest XR or Chest CT COVID-19 High Risk Exposures (should be within last 14 days): -Known close contact with person with COVID-19 (Ex. Family, close friends, ect.) -Living in group living facility such as a group home facility, senior care facility, rehab facility, or long-term care facility -Patient states they were diagnosed with COVID-19 or are quarantined/isolated/furloughed for COVID-19 -Patient works in environment with known COVID-19 positive patients CH TESTER * ED Re-evaluation Note - Leader, Mychal Escalera MD - 02/20/2020 7:21 AM BLEACH TESTER ED Re-evaluation TRANSITION OF CARE I, Mychal Clinton MD, am taking signout and assuming care of this patient. I have reviewed all pertinent vital signs, allergies, and history available in the chart. Summary: 69 y.o. male w/ PMH of a fib (no AC), CHF, recent intra-abdominal abscess complicated by sepsis who presented w/ SOB and b/l leg swelling. CT PE neg for PE. -on lasix 20mg daily -b/l LE duplex via vascular surg to r/o DVT -alcoholic, falls hence why no AC Pending: results of LE duplex Dispo: discharge ED Course as of Feb 20 1144 Time: 02/19 502 Comment: Called vascular surgery fellow to arrange for duplex ultrasound of BLE. By: Donavan Larkin MD Time: 02/20 724 Comment: Per Dr. Rausch, bilateral LE duplex is pending. Vascular fellow has been contacted. He has atrial fibrillation, no anticoagulation. CT of chest recently negative for PE. DVT evaluation. Heis an alcoholic with falls, precluding anticoagulation. By: Chu Wright MD Time: 02/19 734 Comment: Found to have DVT R profunda V. Will start hep drip. Plan to admit to medicine for management of DVT, has concern for alc withdrawal; known A fib but not on AC due to many falls from alcohol By: Mychal Clinton MD Time: 02/19 337 Comment: Spoke to pt and updated him w/ results. No prior history of blood clot, no pain in R leg, no erythema. Both legs have 1+ edema. Denies ever being hospitalized for alcohol withdrawl By: Mychal Clinton MD Final diagnoses: DVT (deep venous thrombosis) ([facility]) Mychal Clinton MD Resident 02/20/20 1144 CH TESTER * ED Re-evaluation Note - Donavan Larkin MD - 02/19/2020 10:44 PM BLEACH TESTER ED Re-evaluation TRANSITION OF CARE I, Donavan Larkin MD, am taking signout and assuming care of this patient from Dr. Jay.I have reviewed all pertinent vital signs, allergies, and history available in the chart. Summary: 69 y.o. male past medical history of AFib not on anticoagulation, he congestive heart failure, recent hospitalization for intra-abdominal abscess complicated by sepsis requiring intubation, presenting with shortness of breath and bilateral leg swelling. Patient is very poor historian. He is able to tell me that he has had some shortness of breath for the past week or so. He is unsure about how long his legs have been swollen. He states that EMS was called because he slid off of his chair onto his butt. In speaking to the patient's she says that he was recently discharged after along hospital course about 3 weeks ago. Ever since then he has not been doing well. He has had episodes of the chills, increased shortness of breath and new bilateral leg swelling that has not been present in the past. He does take Lasix 20 mg daily. He also has poorly controlled AFib with RVR. Pending: BLE Duplex Dispo: Admit ED Course as of Feb 19 706 Time: 02/19 0502 Comment: Called vascular surgery fellow to arrange for duplex ultrasound of BLE. By: Donavan Larkin MD Final diagnoses: None Donavan Larkin MD Resident 02/20/20 0706 CH TESTER * ED Procedure Note - Rui Gonsales MD - 02/19/2020 5:44 PM BLEACH TESTER Associated Order(s): ECG 12 lead Procedure ECG 12 lead Date/Time: 02/19/2020 5:44 PM Performed by: Rui Gonsales MD Authorized by: Rui Gonsales MD Rate: ECG rate: 121 ECG rate assessment: tachycardic Rhythm: Rhythm: atrial fibrillation Ectopy: Ectopy: none QRS: QRS intervals: Normal Conduction: Conduction: normal ST segments: ST segments: Normal T waves: T waves: normal Q waves: Q waves: V2 Previous ECG: Previous ECG: Unavailable Interpretation: Interpretation: abnormal Recommended Follow-up: Recommended follow up: further workup in the ED Comments: Atrial fibrillation with RVR. Possible septal infarct given Q-wave in V2. Rui Gonsales MD 02/19/20 1746 CH TESTER documented in this encounter Plan of Treatment Not on file documented as of this encounter Procedures Procedure Name Priority Date/Time Associated Diagnosis Comments PROTIME-INR Routine 02/21/2020 8:19 PM BLEACH TESTER MAGNESIUM Routine 02/21/2020 8:19 PM BLEACH TESTER BASIC METABOLIC PANEL Routine 02/21/2020 8:19 PM BLEACH TESTER PRO B-TYPE NATRIURETIC PEPTIDE Routine 02/20/2020 9:27 PM BLEACH TESTER PROTIME-INR Routine 02/20/2020 9:27 PM BLEACH TESTER CBC WITHOUT DIFFERENTIAL Routine 02/20/2020 9:27 PM BLEACH TESTER PHOSPHORUS Routine 02/20/2020 9:27 PM BLEACH TESTER BASIC METABOLIC PANEL Routine 02/20/2020 9:27 PM BLEACH TESTER URINALYSIS AND REFLEX TO MICROSCOPIC AND CULTURE STAT 02/20/2020 8:20 PM BLEACH TESTER APTT Timed 02/20/2020 2:42 PM BLEACH TESTER COVID-19 CORONAVIRUS RNA Routine 02/20/2020 12:04 PM BLEACH TESTER TROPONIN I HIGH-SENSITIVITY 6-HOUR Timed 02/20/2020 7:46 AM BLEACH TESTER APTT STAT 02/20/2020 7:46 AM BLEACH TESTER PROTIME-INR STAT 02/20/2020 7:46 AM BLEACH TESTER CBC WITHOUT DIFFERENTIAL STAT 02/20/2020 7:46 AM BLEACH TESTER US VEIN DUPLEX LOWER EXTREMITY BILATERAL COMPLETE ED 02/20/2020 7:34 AM BLEACH TESTER TROPONIN I HIGH-SENSITIVITY 4-HOUR Timed 02/19/2020 11:[address] CHEST PE W CONTRAST ED 02/19/2020 10:00 PM BLEACH TESTER TROPONIN I HIGH-SENSITIVITY 2-HOUR Timed 02/19/2020 9:40 PM BLEACH TESTER XR CHEST 1 VIEW ED 02/19/2020 7:42 PM BLEACH TESTER TROPONIN I HIGH-SENSITIVITY SERIES (BASELINE, 2HR, 4HR, 6HR) STAT 02/19/2020 6:57 PM BLEACH TESTER DIFFERENTIAL AUTO STAT 02/19/2020 6:5 7 PM BLEACH TESTER PRO B-TYPE NATRIURETIC PEPTIDE STAT 02/19/2020 6:57 PM BLEACH TESTER THYROID FUNCTION CASCADE STAT 02/19/2020 6:57 PM BLEACH TESTER CBC WITH AUTO DIFFERENTIAL STAT 02/19/2020 6:57 PM BLEACH TESTER APTT STAT 02/19/2020 6:57 PM BLEACH TESTER PROTIME-INR STAT 02/19/2020 6:57 PM BLEACH TESTER ALBUMIN STAT 02/19/2020 6:57 PM BLEACH TESTER BASIC METABOLIC PANEL STAT 02/19/2020 6:57 PM BLEACH TESTER ECG 12-LEAD STAT 02/19/2020 5:44 PM BLEACH TESTER documented in this encounter Results * (ABNORMAL) Magnesium (02/21/2020 8:19 PM BLEACH TESTER) Pathologist [facility] Magnesium 1.3(L) 1.4 - 2.5 mg/dL [facility] Blood specimen (specimen) 02/21/2020 8:19 PM BLEACH TESTER 02/21/2020 8:34 PM BLEACH TESTER us Yuriy Candelario MD LAB BLOOD ORDERABLES Fi nal Result [facility] [place] [address] * (ABNORMAL) Protime-INR (02/21/2020 8:19 PM BLEACH TESTER) PT 17.9(H) 8.6 - 13.0 sec [facility] INR 1.6(H) 0.8 - 1.2 [facility] Comment: Interpretive data Oral anticoagulant therapeutic ranges: Venous thromboembolism prophylaxis or treatment: 2.0-3.0 CARDIOLOGY Standard range: 2.0-3.0 High-intensity range: 2.5-3.5 Refer to indication-specific guidelines for appropriate target ranges for prosthetic heart valve replacement. Current interpretive data was last revised on 2019. Blood specimen (specimen) 02/21/2020 8:19 PM BLEACH TESTER 02/21/2020 8:45 PM BLEACH TESTER Yuriy Candelario MD LAB BLOOD ORDERABLES Fi nal Result Performing Organization Address City/[facility]/ZIP Co de Phone Number [facility] Department [place] [employer] [place] [address] * (ABNORMAL) Basic metabolic panel (02/21/2020 8:19 PM BLEACH TESTER) Pathologist [facility] Sodium 136 135 - 145 mmol/L [facility] Potassium, pl 3.3 3.3 - 4.9 mmol/L [facility] Chloride 101 97 - 110 mmol/L [facility] CO2 32 22 - 32 mmol/L [facility] Anion gap 3 2 - 15 mmol/L [facility] BUN 9 8 - 25 mg/dL [facility] Creatinine 0.72(L) 0.80 - 1.30 mg/dL [facility] Glucose 168 70 - 199 mg/dL [facility] Comment: Interpretive Data Fasting glucose >/= 126 [...] 2017. Calcium 8.7 8.5 - 10.3 mg/dL [facility] Blood specimen (specimen) 02/21/2020 8:19 PM BLEACH TESTER 02/21/2020 8:34 PM BLEACH TESTER Yuriy Candelario MD LAB BLOOD ORDERABLES Fi nal Result Performing Organization Address [facility]/ZIP Co de Phone Number [facility] Department [place] [place] [address] * (ABNORMAL) Protime-INR (02/20/2020 9:27 PM BLEACH TESTER) [facility] PT 13.3(H) 8.6 - 13.0 sec [facility] INR 1.2 0.8 - 1.2 [facility] Comment: Interpretive data Oral anticoagulant therapeutic ranges: Venous thromboembolism prophylaxis or treatment: 2.0-3.0 CARDIOLOGY Standard range: 2.0-3.0 High-intensity range: 2.5-3.5 Refer to indication-specific guidelines for appropriate target ranges for prosthetic heart valve replacement. Current interpretive data was last revised on 2019. Blood specimen (specimen) 02/20/2020 9:27 PM BLEACH TESTER 02/20/2020 9:43 PM BLEACH TESTER us Yuriy Candelario MD LAB BLOOD ORDERABLES Fi nal Result [facility] [place] [address] * (ABNORMAL) CBC without differential (02/20/2020 9:27 PM BLEACH TESTER) [facility] WBC 6.5 3.8 - 9.9 K/cumm [facility] Hgb 11.3(L) 13.0 - 17.5 g/dL [facility] Hct 34.3(L) 38.9 - 50.3 % [facility] Plt 163 150 - 400 K/cumm [facility] MPV 10.5 9.1 - 12.3 fL [facility] RBC 3.61(L) 4.30 - 5.80 M/cumm [facility] MCV 95.0 81.3 - 96.4 fL [facility] MCH 31.3 27.1 - 33.3 pg [facility] MCHC 32.9 32.3 - 35.7 g/dL [facility] RDW CV 14.7 11.1 - 14.9 % [facility] RDW SD 51.7(H) 35.7 - 48.1 fL [facility] NRBC abs 0.00 0.00 - 0.01 K/cumm [facility] Blood specimen (specimen) 02/20/2020 9:27 PM BLEACH TESTER 02/20/2020 9:46 PM BLEACH TESTER Narrative [facility] - 02/20/2020 9:53 PM BLEACH TESTER Until heparin is discontinued. Yuriy Candelario MD LAB BLOOD ORDERABLES Fi nal Result Performing Organization Address City/[facility]/ZIP Co de Phone Number [facility] [place] [address] * (ABNORMAL) Basic metabolic panel (02/20/2020 9:27 PM BLEACH TESTER) Pathologist [facility] Sodium 140 135 - 145 mmol/L [facility] Potassium, pl 2.8(L) 3.3 - 4.9 mmol/L [facility] Chloride 103 97 - 110 mmol/L [facility] CO2 31 22 - 32 mmol/L [facility] Anion gap 6 2 - 15 mmol/L [facility] BUN 7(L) 8 - 25 mg/dL [facility] Creatinine 0.73(L) 0.80 - 1.30 mg/dL [facility] Glucose 127 70 - 199 mg/dL [facility] Comment: Interpretive Data Fasting glucose >/= 126 [...] 2017. Calcium 8.5 8.5 - 10.3 mg/dL [facility] Blood specimen (specimen) 02/20/2020 9:27 PM BLEACH TESTER 02/20/2020 9:47 PM BLEACH TESTER Yuriy Candelario MD LAB BLOOD ORDERABLES Fi nal Result [facility] [place] [address] * (ABNORMAL) Pro B-type natriuretic peptide (02/20/2020 9:27 PM BLEACH TESTER) NT-proBNP 5,267(H) <=300 pg/mL [facility] Comment: Interpretive Comments: A. Dyspnea in Acute Care Setting All Ages: ?< 300 pg/ml, acute heart failure unlikely. < 50 yrs: ?300 - 450 pg/ml, further investigation warranted. ? > 450 pg/ml, acute heart failure likely. 50 - 74 yrs: ? 300 - 900 pg/ml, further investigation warranted. ? > 900 pg/ml, acute heart failure likely . > or = 75 yrs: ? 450 - 1800 pg/ml, further investigation warranted. ? > 1800 pg/ml, acute heart failure likely. B. Non-acute Setting < 75 yrs ? < 125 pg/ml, rules out heart failure. ? > or = 125 pg/ml, further investigation warranted. > or = 75 yrs ?< 450 pg/ml, rules out heart failure. ? > or = 450 pg/ml, further investigation warranted. - Knowledge of each individual patient's NT-proBNP range may be more useful than using similar cut-points for every patient. Please note that marked elevations in NT-proBNP levels may be observed in state other than Left Ventricular Congestive Failure, including: acute coronary syndromes, right heart strain/failure (including pulmonary embolism and cor pulmonale), critical illness, renal failure, as well as advanced age. - References: 1. Fany RIVERA et.al. Eur Heart J. 2006:27:330-337. 2. Boyd GUSMAN, Lissy YOO. J. AM Simi Cardiol: Cardiovasc Imag. 2009;2: 216- 225. Interpretive Data Last Revised Date: 2017. Blood specimen (specimen) 02/20/2020 9:27 PM BLEACH TESTER 02/20/2020 9:47 PM BLEACH TESTER Yuriy Candelario MD LAB BLOOD ORDERABLES Fi nal Result Performing Organization Address City/[facility]/ZIP Co de Phone Number [facility] [place] [address] * Phosphorus (02/20/2020 9:27 PM BLEACH TESTER) Pathologist [facility] Phosphorus, pl 2.9 2.3 - 4.5 mg/dL [facility] Blood specimen (specimen) 02/20/2020 9:27 PM BLEACH TESTER 02/20/2020 9:47 PM BLEACH TESTER Yuriy Candelario MD LAB BLOOD ORDERABLES Fi nal Result Performing Organization Address [facility] de Phone Number [facility] Department [place] [address] * (ABNORMAL) Urinalysis reflex to microscopic and culture Urine, clean voided (02/20/2020 8:20 PM BLEACH TESTER) Color, ur Straw Yellow [facility] Clarity, ur Clear Clear [facility] Specific gravity, ur 1.005(L) 1.010 - 1.025 [facility] pH, urine 7 [facility] Protein, ur ql Negative Negative [facility] Glucose, ur ql Negative Negative [facility] Ketones, ur Trace Negative [facility] Bilirubin, ur Negative Negative [facility] Blood, ur Negative Negative [facility] Urobilinogen, ur <2.0 <2.0 mg/dL [facility] Nitrite, ur Negative Negative [facility] Leukocyte esterase, ur Negative Negative [facility] UA reflex comment Reflex conditions for microscopic UA and culture not met. [facility] Urine, clean voided 02/20/2020 8:20 PM BLEACH TESTER 02/20/2020 8:28 PM BLEACH TESTER Narrative [facility] - 02/20/2020 8:42 PM BLEACH TESTER ?? Urine pH is affected by diet, medications, systemic acid-base disturbances, and renal tubular function. ??pH may affect urinary stone formation. ??For example, urine pH below 6.0 may help reduce the tendency for calcium phosphate stones and pH greater than 6.0 may reduce the tendency for uric acid stone formation. Source: [facility] [employer]. Last revised 04-18-2017 us Yuriy Candelario MD LAB MICROBIOLOGY - GENE RAL ORDERABLES Final Result Performing Organization Address [facility] Co de Phone Number [facility] [place] [address] * (ABNORMAL) aPTT (02/20/2020 2:42 PM BLEACH TESTER) Pathologist [facility] aPTT 80(H) 25 - 37 sec [facility] Comment: Interpretive data Heparin therapeutic range: 60-90 seconds Range based on correlation with therapeutic heparin activity range of 0.3-0.7 units/ml. Current interpretive data was last revised on 2019. Blood specimen (specimen) 02/20/2020 2:42 PM BLEACH TESTER 02/20/2020 3:05 PM BLEACH TESTER Narrative [facility] - 02/20/2020 3:14 PM BLEACH TESTER THE COLLECTION LOCATION IS [facility] ED2-18 us Kezia Rausch MD LAB BLOOD ORDERABLES Final R esult Performing Organization Address [facility] Co de Phone Number [facility] [place] [address] * COVID-19 Coronavirus RNA Nasopharyngeal (02/20/2020 12:04 PM BLEACH TESTER) Pathologist [facility] COVID-19 RNA Negative Negative [facility] Comment: Interpretive Data Testing performed by [facility] ([phone]). This test is performed using the InHomeVest Xpert Xpress SARS-CoV-2 assay. ??This is a real-time RT-PCR test intended for the qualitative detection of nucleic acid from the SARS-CoV-2. ??This assay has been reviewed by the FDA for Emergency Use Authorization (EUA). The performance characteristics have been verified by the [facility]. ??Additional sample types have been validated according to CLIA regulations. ??Results must be considered in the clinical context and a negative result does not rule out infection. ?? Interpretive Data last revised 2019. First COVID-19 test? No [facility] Employeed in healthcare? Unknown [facility] status? No [facility] Group care resident? Unknown [facility] Hospitalized? No [facility] Is patient in ICU? No [facility] Symptomatic as defined by CDC? No [facility] Nasopharyngeal 02/20/2020 12 :04 PM BLEACH TESTER 02/20/2020 12:35 PM BLEACH TESTER Narrative [facility] - 02/20/2020 1:27 PM BLEACH TESTER What is the reason for testing?->Likely to be admitted to semi-private room Mychal Clinton MD LAB MICROBIOLOGY - [facility] ORDERABLES Final Result [facility] [place] [address] * aPTT (02/20/2020 7:46 AM BLEACH TESTER) aPTT 26 25 - 37 sec [facility] Comment: Interpretive data Heparin therapeutic range: 60-90 seconds Range based on correlation with therapeutic heparin activity range of 0.3-0.7 units/ml. Current interpretive data was last revised on 2019. Blood specimen (specimen) 02/20/2020 7:46 AM BLEACH TESTER 02/20/2020 8:13 AM BLEACH TESTER Narrative [facility] - 02/20/2020 8:31 AM BLEACH TESTER Unless preformed in the last 48 hours. Draw prior to heparin administration. THE COLLECTION LOCATION IS MERGED WITH [facility] ED2-18 Mychal Clinton MD LAB BLOOD ORDERABLES Final Result Performing Organization Address [facility] Co de Phone Number [facility] [place] [address] * (ABNORMAL) Protime-INR (02/20/2020 7:46 AM BLEACH TESTER) [facility] PT 13.3(H) 8.6 - 13.0 sec [facility] INR 1.2 0.8 - 1.2 [facility] Comment: Interpretive data Oral anticoagulant therapeutic ranges: Venous thromboembolism prophylaxis or treatment: 2.0-3.0 CARDIOLOGY Standard range: 2.0-3.0 High-intensity range: 2.5-3.5 Refer to indication-specific guidelines for appropriate target ranges for prosthetic heart valve replacement. Current interpretive data was last revised on 2019. Blood specimen (specimen) 02/20/2020 7:46 AM BLEACH TESTER 02/20/2020 8:13 AM BLEACH TESTER Narrative [facility] - 02/20/2020 8:31 AM BLEACH TESTER Unless preformed in the last 48 hours. Draw prior to heparin administration. THE COLLECTION LOCATION IS MERGED WITH [facility] ED2-18 Mychal Clinton MD LAB BLOOD ORDERABLES Final Result Performing Organization Address [facility] Co de Phone Number [facility] [place] [address] * (ABNORMAL) CBC without differential (02/20/2020 7:46 AM BLEACH TESTER) [facility] WBC 7.2 3.8 - 9.9 K/cumm [facility] Hgb 11.4(L) 13.0 - 17.5 g/dL [facility] Hct 34.1(L) 38.9 - 50.3 % [facility] Plt 161 150 - 400 K/cumm [facility] MPV 10.5 9.1 - 12.3 fL [facility] RBC 3.57(L) 4.30 - 5.80 M/cumm [facility] MCV 95.5 81.3 - 96.4 fL [facility] MCH 31.9 27.1 - 33.3 pg [facility] MCHC 33.4 32.3 - 35.7 g/dL [facility] RDW CV 14.8 11.1 - 14.9 % [facility] RDW SD 52.3(H) 35.7 - 48.1 fL [facility] NRBC abs 0.00 0.00 - 0.01 K/cumm [facility] Blood specimen (specimen) 02/20/2020 7:46 AM BLEACH TESTER 02/20/2020 8:08 AM BLEACH TESTER Narrative [facility] - 02/20/2020 8:14 AM BLEACH TESTER Unless preformed in the last 48 hours. Draw prior to heparin administration. THE COLLECTION LOCATION IS MERGED WITH [facility] ED2-18 Mychal Clinton MD LAB BLOOD ORDERABLES Final Result Performing Organization Address [facility] de Phone Number [facility] [place] [address] * Troponin I high-sensitivity 6-hour (02/20/2020 7:46 AM BLEACH TESTER) Trop I hs <4 <=35 ng/L [facility] Comment: Interpretive Data For further [facility] resources including the diagnostic algorithm and an aid in interpretation, copy and paste this link: https://bjhlab.testcatalog.org/show/hsTrop-1 Current Interpretive Data last revised 2019. Trop I hs delta See Comment ng/L [facility] Comment:Inappropriate collec tion time to report a delta. Trop I hs pct delta See Comment % [facility] Comment:Inappropriate collec tion time to report a delta. Trop I hs interp See Comment [facility] Comment:Inappropriate collec tion time to report a delta. Blood specimen (specimen) 02/20/2020 7:46 AM BLEACH TESTER 02/20/2020 8:08 AM BLEACH TESTER us Rui Gonsales MD LAB BLOOD ORDERABLES F inal Result Performing Organization Address [facility] Co de Phone Number [facility] [place] [address] * US Vein Duplex Lower Extremity Bilateral Complete (02/20/2020 7:34 AM BLEACH TESTER) Anatomical Region Laterality Modality Vascular Bilateral Ultrasound 02/20/2020 7:13 AM BLEACH TESTER Narrative 02/21/2020 10:01 PM BLEACH TESTER [facility] - Department of Vascular Surgery, Vascular Laboratory [address] [place] [id number] Lower Extremity Venous Ultrasound Report Patient Name: JANIA GUAJARDO A : 1950 (69y 9m) Study Date: 02/20/2020 7:13:42 AM Gender: M Tech: Cornell MORENO Location: [id number] Ref.Provider: KEZIA RAUSCH Quality: Adequate Order Provider: JAIR JAY Procedures: Vascular Report: Venous Duplex imaging was performed bilaterally in the lower extremities. The common femoral, femoral, popliteal, posterior tibial, peroneal veins were evaluated for patency, spontaneity and phasicity with Doppler, compression and augmentation maneuvers. Great saphenous vein proximal at the junction was evaluated with compression maneuvers. Indications: b/l Le swelling. Findings: Performing Crown Perforator Operator: Laurel Moreno RVT. Right: Duplex scan reveals dilated vein with echogenic, intraluminal, non-compressible material consistent with acute deep vein thrombosis in the right lower extremity. Deep veins involved include the right profunda femoral vein. All other evaluated veins on the right are patent. Left: Venous Doppler signals in the left lower extremity are within normal limits for spontaneity and phasicity and respond normally to augmentation maneuvers. No evidence of deep vein thrombus by duplex, proximal to the calf. Comments: Soft tissue masses present in the left groin area, possible lymphadenopathy. Provider Notification: Results called to Dr. Clinton. Conclusions: 1. There is acute deep vein thrombosis involving vein(s) as noted above in the right lower extremity. 2. There is no evidence of acute deep vein thrombosis on the left. Noninvasive venous studies cannot rule out isolated calf vein obstruction. 3. Soft tissue masses present in the left groin area, possible lymphadenopathy. History: HTN, HLD, CHF, TIA, Cholecystitis. Previous Studies: No previous studies for comparison. Disclaimer: The signing physician has reviewed all images pertaining to this test. These images and this report will be retained in the patient chart by the Vascular Laboratory for the legally required time period. This chart constitutes the legal record of any testing performed. Electronically Signed By: Franklin Curiel MD [facility] 2020-02-21 22:01:24 BLEACH TESTER CC: CC: Procedure Note Franklin Curiel MD - 02/21/2020 [facility] - Department of Vascular Surgery,Vascular Laboratory [address] [place] [address] Lower Extremity Venous Ultrasound Report Patient Name: JANIA GUAJARDO APatient ID: [id number] : 1950 (69y 9m)Study Date: 02/20/2020 7:13:42 AM Gender: MAccession #: [id number] Tech: Cornell BELTRANocation: ED2-18 Ref.Provider: MOY RAUSCHEQuality: Adequate Order Provider: Richard JAY #: [id number] Procedures: Vascular Report: Venous Duplex imaging was performed bilaterally in the lower extremities.The common femoral, femoral, popliteal, posterior tibial, peroneal veins wereevaluated for patency, spontaneity and phasicity with Doppler, compression and augmentationmaneuvers. Great saphenous vein proximal at the junction was evaluated with compressionmaneuvers. Indications: b/l Le swelling. Findings: Performing Crown Perforator Operator: Laurel Moreno RVT. Right: Duplex scan reveals dilated vein with echogenic, intraluminal,non-compressible material consistent with acute deep vein thrombosis in the right lower extremity.Deep veins involved include the right profunda femoral vein. All other evaluatedveins on the right are patent. Left: Venous Doppler signals in the left lower extremity are within normallimits for spontaneity and phasicity and respond normally to augmentation maneuvers.No evidence of deep vein thrombus by duplex, proximal to the calf. Comments: Soft tissue masses present in the left groin area, possiblelymphadenopathy. Provider Notification: Results called to Dr. Clinton. Conclusions: 1. There is acute deep vein thrombosis involving vein(s) as noted above inthe right lower extremity. 2. There is no evidence of acute deep vein thrombosis on the left.Noninvasive venous studies cannot rule out isolated calf vein obstruction. 3. Soft tissue masses present in the left groin area, possiblelymphadenopathy. History: HTN, HLD, CHF, TIA, Cholecystitis. Previous Studies: No previous studies for comparison. Disclaimer: The signing physician has reviewed all images pertaining to this test.These images and this report will be retained in the patient chart by the VascularLaboratory for the legally required time period. This chart constitutes the legal record ofany testing performed. Electronically Signed By: Franklin Curiel MD [facility] 2020-02-21 22:01:24 BLEACH TESTER CC: CC: us Jair Jay III, MD [facility] Final Result * Troponin I high-sensitivity 4-hour (02/19/2020 11:02 PM BLEACH TESTER) Trop I hs <4 <=35 ng/L [facility] Comment: Interpretive Data For further hscTnI resources including the diagnostic algorithm and an aid in interpretation, copy and paste this link: https://bjhlab.testcatalog.org/show/hsTrop-1 Current Interpretive Data last revised 2019. Trop I hs delta 0 ng/L [facility] Trop I hs interp Insignificant [facility] Blood specimen (specimen) 02/19/2020 11:02 PM BLEACH TESTER 02/19/2020 11:20 PM BLEACH TESTER us Rui Gonsales MD LAB BLOOD ORDERABLES F inal Result [facility] Department [place] [address] * CT Chest PE W Contrast (02/19/2020 10:00 PM BLEACH TESTER) Anatomical Region Laterality Modality Body N/A Computed Tomogra phy 02/19/2020 10:1 9 PM BLEACH TESTER Impressions 02/20/2020 12:05 PM BLEACH TESTER 1. ??No acute pulmonary embolism. 2. ??Interval increase in small right greater than left bilateral pleural effusions. ??Stable pericardial effusion and cardiomegaly. 3. ??Large right thyroid nodule, which may represent multinodular goiter. ??This may be further evaluated with dedicated thyroid ultrasound nonemergent setting. 4. ??Interval decrease in size of partially visualized rim-enhancing fluid collection arising from the gallbladder fossa and extending to the ventral abdominal wall. Dictated by: Any Martin M.D. The radiology attending physician has personally reviewed this study, and had reviewed and/or edited this written report and agrees with it. Electronically signed by: Rui Heard M.D. Narrative 02/20/2020 12:05 PM BLEACH TESTER EXAMINATION: ??Computed tomography of the chest with intravenous contrast HISTORY: 61-year-old man with gallbladder fossa abscess status post percutaneous drainage after cholecystectomy 5 months ago. ??He is presenting with weakness, shortness of breath, and cough. TECHNIQUE: ??Transaxial computed tomographic images of the chest were obtained with intravenous contrast according to the pulmonary embolism protocol after the uneventful administration of 100 mL Opti-Ray 350 intravenous contrast. COMPARISON: Outside hospital abdomen and pelvis CT 12/18/2019. FINDINGS: ?? There is asymmetric enlargement of the thyroid with the right thyroid lobe consisting of a large, heterogeneous nodule measuring 3.5 cm. No supraclavicular, or axillary lymphadenopathy. ??There are mildly prominent mediastinal nodes, likely reactive. ??There is an enlarged right hilar lymph node node measuring 2.7 x 2.0 cm on axial image 11. Calcified left hilar nodes and calcified nodule left lung base are compatible with old granulomatous disease. No acute pulmonary embolism. ??There is an ill-defined filling defect within the right lower lobe superior segment pulmonary artery which has a configuration favored to represent flow-related artifact. Three-vessel coronary artery calcifications are noted. ??There is biatrial enlargement. ??There is a small pericardial effusion, similar compared to the prior examination. There has been interval increase in small right greater than left pleural effusions. No focal consolidation. ??Again seen is peripheral reticulation in the lungs likely representing scarring or fibrosis. ??There is right greater than left bibasilar atelectasis. ??No suspicious pulmonary nodule. ??No pneumothorax. Limited images of the upper abdomen demonstrate a demonstrate partially visualized changes of cholecystectomy and interval decrease in size of the lobulated rim-enhancing fluid collection adjacent to the right shabnam-liver and the ventral abdominal wall. ??This measures 9.9 x 2.3 cm on axial image 338, previously 9.8 x 4.7 cm. Communication with the gallbladder fossa is again seen. No suspicious osseous lesion. ??Unchanged superior endplate compression deformity of T11. Procedure Note Rui Heard MD - 02/20/2020 EXAMINATION: Computed tomography of the chest with intravenous contrast HISTORY: 61-year-old man with gallbladder fossa abscess status post percutaneous drainage after cholecystectomy 5 months ago. He is presenting with weakness, shortness of breath, and cough. TECHNIQUE: Transaxial computed tomographic images of the chest were obtained with intravenous contrast according to the pulmonary embolism protocol after the uneventful administration of 100 mL Opti-Ray 350 intravenous contrast. COMPARISON: Outside hospital abdomen and pelvis CT 12/18/2019. FINDINGS: There is asymmetric enlargement of the thyroid with the right thyroid lobe consisting of a large, heterogeneous nodule measuring 3.5 cm. No supraclavicular, or axillary lymphadenopathy. There are mildly prominent mediastinal nodes, likely reactive. There is an enlarged right hilar lymph node node measuring 2.7 x 2.0 cm on axial image 11. Calcified left hilar nodes and calcified nodule left lung base are compatible with old granulomatous disease. No acute pulmonary embolism. There is an ill-defined filling defect within the right lower lobe superior segment pulmonary artery which has a configuration favored to represent flow-related artifact. Three-vessel coronary artery calcifications are noted. There is biatrial enlargement. There is a small pericardial effusion, similar compared to the prior examination. There has been interval increase in small right greater than left pleural effusions. No focal consolidation. Again seen is peripheral reticulation in the lungs likely representing scarring or fibrosis. There is right greater than left bibasilar atelectasis. No suspicious pulmonary nodule. No pneumothorax. Limited images of the upper abdomen demonstrate a demonstrate partially visualized changes of cholecystectomy and interval decrease in size of the lobulated rim-enhancing fluid collection adjacent to the right shabnam-liver and the ventral abdominal wall. This measures 9.9 x 2.3 cm on axial image 338, previously 9.8 x 4.7 cm. Communication with the gallbladder fossa is again seen. No suspicious osseous lesion. Unchanged superior endplate compression deformity of T11. IMPRESSION: 1. No acute pulmonary embolism. 2. Interval increase in small right greater than left bilateral pleural effusions. Stable pericardial effusion and cardiomegaly. 3. Large right thyroid nodule, which may represent multinodular goiter. This may be further evaluated with dedicated thyroid ultrasound nonemergent setting. 4. Interval decrease in size of partially visualized rim-enhancing fluid collection arising from the gallbladder fossa and extending to the ventral abdominal wall. Dictated by: Any Martin M.D. The radiology attending physician has personally reviewed this study, and had reviewed and/or edited this written report and agrees with it. Electronically signed by: Rui Heard M.D. us Jair Jay III, MD IMG CT PROCEDUR ES Final Result * Troponin I high-sensitivity 2-hour (02/19/2020 9:40 PM BLEACH TESTER) Trop I hs <4 <=35 ng/L [facility] Comment: Interpretive Data For further hscTnI resources including the diagnostic algorithm and an aid in interpretation, copy and paste this link: https://bjhlab.testcatalog.org/show/hsTrop-1 Current Interpretive Data last revised 2019. Trop I hs delta 0 ng/L [facility] Trop I hs interp Insignificant [facility] Blood specimen (specimen) 02/19/2020 9:40 PM BLEACH TESTER 02/19/2020 9:50 PM BLEACH TESTER us Rui Gonsales MD LAB BLOOD ORDERABLES F inal Result [facility] Department [place] [address] * XR Chest 1 Vw Portable (02/19/2020 7:42 PM BLEACH TESTER) Anatomical Region Laterality Modality Body, Chest N/A Computed Radiogr aphy 02/19/2020 8:11 PM BLEACH TESTER Impressions 02/19/2020 8:23 PM BLEACH TESTER There is a right basilar opacity with silhouetting of the medial aspect of the right hemidiaphragm, which may represent atelectasis and right lower lobe collapse or alternatively pneumonia in the appropriate clinical setting. ??Is a right costophrenic angle is collimated out of the [id number]. ??No left pleural effusion. No pneumothorax. ??Heart size is within normal limits. ??Aorta is tortuous. Dictated by: Any Martin M.D. The radiology attending physician has personally reviewed this study, and had reviewed and/or edited this written report and agrees with it. Electronically signed by: Stepan Scott M.D. Narrative 02/19/2020 8:23 PM BLEACH TESTER EXAMINATION: XR CHEST 1 VIEW HISTORY: Shortness of breath COMPARISON: 12/27/2019 Procedure Note Stepan Scott MD - 02/19/2020 EXAMINATION: XR CHEST 1 VIEW HISTORY: Shortness of breath COMPARISON: 12/27/2019 IMPRESSION: There is a right basilar opacity with silhouetting of the medial aspect of the right hemidiaphragm, which may represent atelectasis and right lower lobe collapse or alternatively pneumonia in the appropriate clinical setting. Is a right costophrenic angle is collimated out of the [id number]. No left pleural effusion. No pneumothorax. Heart size is within normal limits. Aorta is tortuous. Dictated by: Any Martin M.D. The radiology attending physician has personally reviewed this study, and had reviewed and/or edited this written report and agrees with it. Electronically signed by: Stepan Scott M.D. Jair Jay III, MD IMG XR PROCEDUR ES Final Result * (ABNORMAL) Pro B-type natriuretic peptide (02/19/2020 6:57 PM BLEACH TESTER) NT-proBNP 3,432(H) <=300 pg/mL [facility] Comment: Interpretive Comments: A. Dyspnea in Acute Care Setting All Ages: ?< 300 pg/ml, acute heart failure unlikely. < 50 yrs: ?300 - 450 pg/ml, further investigation warranted. ? > 450 pg/ml, acute heart failure likely. 50 - 74 yrs: ? 300 - 900 pg/ml, further investigation warranted. ? > 900 pg/ml, acute heart failure likely . > or = 75 yrs: ? 450 - 1800 pg/ml, further investigation warranted. ? > 1800 pg/ml, acute heart failure likely. B. Non-acute Setting < 75 yrs ? < 125 pg/ml, rules out heart failure. ? > or = 125 pg/ml, further investigation warranted. > or = 75 yrs ?< 450 pg/ml, rules out heart failure. ? > or = 450 pg/ml, further investigation warranted. - Knowledge of each individual patient's NT-proBNP range may be more useful than using similar cut-points for every patient. Please note that marked elevations in NT-proBNP levels may be observed in state other than Left Ventricular Congestive Failure, including: acute coronary syndromes, right heart strain/failure (including pulmonary embolism and cor pulmonale), critical illness, renal failure, as well as advanced age. - References: 1. Fany RIVERA et.al. Eur Heart J. 2006:27:330-337. 2. Boyd RW, Lissy AM. J. AM Simi Cardiol: Cardiovasc Imag. 2009;2: 216- 225. Interpretive Data Last Revised Date: 2017. Blood specimen (specimen) 02/19/2020 6:57 PM BLEACH TESTER 02/19/2020 7:08 PM BLEACH TESTER Janet Perez MD LAB BLOOD ORDERABLES Mariangel l Result Performing Organization Address City/State/[facility] Co de Phone Number [facility] [place] [address] * TSH reflex to free T4 (02/19/2020 6:57 PM BLEACH TESTER) [facility] TSH 2.02 0.30 - 4.20 mcIUnit/mL [facility] Blood specimen (specimen) 02/19/2020 6:57 PM BLEACH TESTER 02/19/2020 7:08 PM BLEACH TESTER us Notinfile Unknown LAB BLOOD ORDERABLES Final Res ult Performing Organization Address [facility] Co de Phone Number [facility] Department [place] [address] * (ABNORMAL) Albumin (02/19/2020 6:57 PM BLEACH TESTER) [facility] Albumin 3.1(L) 3.5 - 5.0 g/dL [facility] Blood specimen (specimen) 02/19/2020 6:57 PM BLEACH TESTER 02/19/2020 7:08 PM BLEACH TESTER us Notinfile Unknown LAB BLOOD ORDERABLES Final Res ult Performing Organization Address [facility] Co de Phone Number [facility] [place] [address] * (ABNORMAL) Differential, auto (02/19/2020 6:57 PM BLEACH TESTER) [facility] Neutrophil abs 8.4(H) 1.7 - 6.5 K/cumm [facility] Imm gran abs 0.0 0.0 - 0.1 K/cumm [facility] Lymphocyte abs 0.7(L) 0.8 - 3.3 K/cumm [facility] Monocyte abs 0.7 0.2 - 0.8 K/cumm [facility] Eosinophil abs 0.0 0.0 - 0.5 K/cumm [facility] Basophil abs 0.0 0.0 - 0.1 K/cumm [facility] Neutrophil pct 85.7 % [facility] Comment: Interpretive Data Percent cell count reference ranges are not reported, since discordance with absolute values may lead to misinterpretation of CBC data. Current Interpretive Data was last revised on 2017. Imm gran pct 0.2 % [facility] Comment: Interpretive Data Percent cell count reference ranges are not reported, since discordance with absolute values may lead to misinterpretation of CBC data. Current Interpretive Data was last revised on 2017. Lymphocyte pct 6.8 % [facility] Comment: Interpretive Data Percent cell count reference ranges are not reported, since discordance with absolute values may lead to misinterpretation of CBC data. Current Interpretive Data was last revised on 2017. Monocyte pct 7.1 % [facility] Comment: Interpretive Data Percent cell count reference ranges are not reported, since discordance with absolute values may lead to misinterpretation of CBC data. Current Interpretive Data was last revised on 2017. Eosinophil pct 0.1 % [facility] Comment: Interpretive Data Percent cell count reference ranges are not reported, since discordance with absolute values may lead to misinterpretation of CBC data. Current Interpretive Data was last revised on 2017. Basophil pct 0.1 % [facility] Comment: Interpretive Data Percent cell count reference ranges are not reported, since discordance with absolute values may lead to misinterpretation of CBC data. Current Interpretive Data was last revised on 2017. Blood specimen (specimen) 02/19/2020 6:57 PM BLEACH TESTER 02/19/2020 7:08 PM BLEACH TESTER us Rui Gonsales MD LAB BLOOD ORDERABLES F inal Result [facility] [place] [address] * (ABNORMAL) Protime-INR (02/19/2020 6:57 PM BLEACH TESTER) PT 13.6(H) 8.6 - 13.0 sec [facility] INR 1.3(H) 0.8 - 1.2 [facility] Comment: Interpretive data Oral anticoagulant therapeutic ranges: Venous thromboembolism prophylaxis or treatment: 2.0-3.0 CARDIOLOGY Standard range: 2.0-3.0 High-intensity range: 2.5-3.5 Refer to indication-specific guidelines for appropriate target ranges for prosthetic heart valve replacement. Current interpretive data was last revised on 2019. Blood specimen (specimen) 02/19/2020 6:57 PM BLEACH TESTER 02/19/2020 7:22 PM BLEACH TESTER Narrative [facility] - 02/19/2020 7:30 PM BLEACH TESTER THE COLLECTION LOCATION IS Rui Gonsales MD LAB BLOOD ORDERABLES F inal Result Performing Organization Address [facility] de Phone Number [facility] [place] [employer] [place] [address] * aPTT (02/19/2020 6:57 PM BLEACH TESTER) aPTT 26 25 - 37 sec [facility] Comment: Interpretive data Heparin therapeutic range: 60-90 seconds Range based on correlation with therapeutic heparin activity range of 0.3-0.7 units/ml. Current interpretive data was last revised on 2019. Blood specimen (specimen) 02/19/2020 6:57 PM BLEACH TESTER 02/19/2020 7:22 PM BLEACH TESTER Narrative [facility] - 02/19/2020 7:30 PM BLEACH TESTER THE COLLECTION LOCATION IS Rui Gonsales MD LAB BLOOD ORDERABLES F inal Result Performing Organization Address [facility] Co de Phone Number [facility] [place] [employer] [place] [address] * Troponin I high-sensitivity series (baseline, 2hr, 4hr, 6hr) (02/19/2020 6:57 PM BLEACH TESTER) Trop I hs 4 <=35 ng/L [facility] Comment: Interpretive Data For further [facility] resources including the diagnostic algorithm and an aid in interpretation, copy and paste this link: [email or web address] Current Interpretive Data last revised 2019. Blood specimen (specimen) 02/19/2020 6:57 PM BLEACH TESTER 02/19/2020 7:08 PM BLEACH TESTER Narrative [facility] - 02/19/2020 7:39 PM BLEACH TESTER THE BJ COLLECTION LOCATION IS us Rui Gonsales MD LAB BLOOD ORDERABLES F inal Result [facility] [place] [address] * (ABNORMAL) Basic metabolic panel (02/19/2020 6:57 PM BLEACH TESTER) Sodium 139 135 - 145 mmol/L [facility] Potassium, pl 3.2(L) 3.3 - 4.9 mmol/L [facility] Chloride 102 97 - 110 mmol/L [facility] CO2 28 22 - 32 mmol/L [facility] Anion gap 9 2 - 15 mmol/L [facility] BUN 10 8 - 25 mg/dL [facility] Creatinine 0.66(L) 0.80 - 1.30 mg/dL [facility] Glucose 129 70 - 199 mg/dL [facility] Comment: Interpretive Data Fasting glucose >/= 126 [...] 2017. Calcium 8.9 8.5 - 10.3 mg/dL [facility] Blood specimen (specimen) 02/19/2020 6:57 PM BLEACH TESTER 02/19/2020 7:08 PM BLEACH TESTER Narrative [facility] - 02/19/2020 7:34 PM BLEACH TESTER THE BJ COLLECTION LOCATION IS Rui Gonsales MD LAB BLOOD ORDERABLES F inal Result Performing Organization Address City/[facility]/ZIP Co de Phone Number [facility] [place] [address] * (ABNORMAL) CBC with auto differential (02/19/2020 6:57 PM BLEACH TESTER) [facility] WBC 9.8 3.8 - 9.9 K/cumm [facility] Hgb 12.4(L) 13.0 - 17.5 g/dL [facility] Hct 36.6(L) 38.9 - 50.3 % [facility] Plt 156 150 - 400 K/cumm [facility] MPV 10.3 9.1 - 12.3 fL [facility] RBC 3.89(L) 4.30 - 5.80 M/cumm [facility] MCV 94.1 81.3 - 96.4 fL [facility] MCH 31.9 27.1 - 33.3 pg [facility] MCHC 33.9 32.3 - 35.7 g/dL [facility] RDW CV 15.0(H) 11.1 - 14.9 % [facility] RDW SD 51.8(H) 35.7 - 48.1 fL [facility] NRBC abs 0.00 0.00 - 0.01 K/cumm [facility] Blood specimen (specimen) 02/19/2020 6:57 PM BLEACH TESTER 02/19/2020 7:08 PM BLEACH TESTER Narrative [facility] - 02/19/2020 7:14 PM BLEACH TESTER THE COLLECTION LOCATION IS Rui Gonsales MD LAB BLOOD ORDERABLES F inal Result Performing Organization Address [facility]/ZIP Co de Phone Number [facility] [place] [address] * (ABNORMAL) ECG 12-LEAD (02/19/2020 5:44 PM BLEACH TESTER) Narrative [facility] - 02/19/2020 5:44 PM BLEACH TESTER Rui Gonsales MD ? 02/19/2020 ??5:46 PM ECG 12 lead Date/Time: 02/19/2020 5:44 PM Performed by: Rui Gonsales MD Authorized by: Rui Gonsales MD Rate: ??ECG rate: ??121 ??ECG rate assessment: tachycardic ?? Rhythm: ??Rhythm: atrial fibrillation ?? Ectopy: ??Ectopy: none ?? QRS: ??QRS intervals: ??Normal Conduction: ??Conduction: normal ?? ST segments: ??ST segments: ??Normal T waves: ??T waves: normal ?? Q waves: ??Q waves: ??V2 Previous ECG: ??Previous ECG: ??Unavailable Interpretation: ??Interpretation: abnormal ?? Recommended Follow-up: ??Recommended follow up: further workup in the ED ?? Comments: ?? Atrial fibrillation with RVR. ??Possible septal infarct given Q-wave in V2. Procedure Note Rui Gonsales MD - 02/19/2020 5:44 PM CST Procedure ECG 12 lead Date/Time: 02/19/2020 5:44 PM Performed by: Rui Gonsales MD Authorized by: Rui Gonsales MD Rate: ECG rate: 121 ECG rate assessment: tachycardic Rhythm: Rhythm: atrial fibrillation Ectopy: Ectopy: none QRS: QRS intervals: Normal Conduction: Conduction: normal ST segments: ST segments: Normal T waves: T waves: normal Q waves: Q waves: V2 Previous ECG: Previous ECG: Unavailable Interpretation: Interpretation: abnormal Recommended Follow-up: Recommended follow up: further workup in the ED Comments: Atrial fibrillation with RVR. Possible septal infarct given Q-wave inV2. Rui Gonsales MD 02/19/20 [id number] us Kezia Rausch MD ECG ORDERABLES Final Result [facility] documented in this encounter Visit Diagnoses Diagnosis DVT (deep venous thrombosis) (CMS/HCC) (HCC)- Primary Acute venous embolism and thrombosis of unspecified deep vessels of lower extremity DVT (deep venous thrombosis) (CMS/HCC) (HCC) Acute venous embolism and thrombosis of unspecified deep vessels of lower extremity documented in this encounter Administered Medications Inactive Administered Medications - up to 3 most recent administrations Medication Order MAR Action Action Date Dose Rate Site acetaminophen (TYLENOL) tablet 650 mg 650 mg, oral, Every 4 hours PRN, 1st line for pain, Starting on 02/20/20 at 1744 Given 02/22/2020 8:42 AM BLEACH TESTER 650 mg albuterol 2.5 mg/0.5 mL nebulizer solution 2.5 mg 2.5 mg, nebulization, Every 4 hours (correspondent), First dose on 02/20/20 at 1800 Given 02/20/2020 5:54 PM BLEACH TESTER 2.5 mg albuterol 2.5 mg/0.5 mL nebulizer solution 2.5 mg 2.5 mg, nebulization, Every 4 hours PRN (correspondent), wheezing, Starting on 02/20/20 at 1830 apixaban (ELIQUIS) tablet 5 mg 5 mg, oral, Every 12 hours scheduled, First dose on 02/20/20 at 2100, Nurse to discontinue heparin infusion order and associated bolus at first administration of apixaban using ? order condition met? order source, Indications: atrial fibrillationIndications:atrial fibrillation Given 02/22/2020 8:42 AM BLEACH TESTER 5 mg Given 02/21/2020 8:01 PM BLEACH TESTER 5 mg Given 02/21/2020 7:49 AM BLEACH TESTER 5 mg cholecalciferol (VITAMIN D-3) capsule 1,000 Units 1,000 Units, oral, Daily, First dose on 02/20/20 at 1615 Given 02/22/2020 8:42 AM BLEACH TESTER 1,000 Units Given 02/21/2020 7:49 AM BLEACH TESTER 1,000 Units Given 02/20/2020 6:18 PM BLEACH TESTER 1,000 Units dilTIAZem XR (CARDIZEM CD,DILACOR XR) 24 hour capsule 360 mg 360 mg, oral, Daily, First dose on 02/20/20 at 1104, Do not crush, chew, cut, dissolve, open or otherwise manipulate tablet/capsule. Given 02/20/2020 12:05 PM BLEACH TESTER 360 mg folic acid (FOLVITE) tablet 1 mg 1 mg, oral, Daily, First dose on 02/20/20 at 1615 Given 02/22/2020 8:42 AM BLEACH TESTER 1 mg Given 02/21/2020 7:49 AM BLEACH TESTER 1 mg Given 02/20/2020 6:18 PM BLEACH TESTER 1 mg furosemide (LASIX) 10 mg/mL injection 40 mg 40 mg, intravenous, Administer over 1 Minutes, Once, On 02/20/20 at 1615, For 1 dose, Room temperature only Given 02/20/2020 6:18 PM BLEACH TESTER 40 mg furosemide (LASIX) 10 mg/mL injection 40 mg 40 mg, intravenous, Administer over 1 Minutes, Once, On 02/21/20 at 1200, For 1 dose, Room temperature only Given 02/21/2020 2:27 PM BLEACH TESTER 40 mg heparin 1,000 unit/mL injection 8,200 Units 8,200 Units (rounded from 8,168 Units = 80 Units/kg ? 102.1 kg), intravenous, Once, On 02/20/20 at 0740, For 1 dose, Initial bolus prior to starting heparin infusion. Do not adjust initial bolus based on patient PTT., Indications: Venous ThrombosisIndications:V enous Thrombosis Given 02/20/2020 7:55 AM BLEACH TESTER 8,200 Units heparin in 0.45% sodium chloride 25,000 units/250 mL (100 units/mL) infusion (premix) 1-33 Units/kg/hr ? 102.1 kg (1.021-33.693 mL/hr, rounded to 1.02-33.69 mL/hr), intravenous, Titrated, Starting on 02/20/20 at 0740, WEIGHT-BASED HEPARIN INFUSION Initial rate 18 Units/kg/hr. Adjust infusion based upon nomogram: PTT less than 40 seconds: Bolus if ordered (see PRN bolus order) , then increase infusion rate 3 units/kg/hour PTT 40 - 50.9 seconds: Bolus if ordered (see PRN bolus order), then increase infusion rate 2 units/kg/hour, PTT 51 - 59.9 seconds: No bolus, increase infusion rate 1 unit/kg/hour PTT 60 - 94.9 seconds: No change PTT 95 - 104.9 seconds: No bolus, decrease infusion rate 1 unit/kg/hour PTT 105 - 114.9 seconds: Hold infusion for 30 minutes, then decrease infusion rate 2 units/kg/hour PTT 115 or greater seconds: Hold infusion for 1 hour, then decrease infusion rate 3 units/kg/hour Draw STAT PTT 6 hrs after initial heparin bolus, after each rate change, and every 6 hours until 2 consecutive PTTs are within therapeutic range. Once two consecutive PTT's are therapeutic (60-94.9 seconds), then draw PTT every AM until heparin is discontinued., Indications: Venous ThrombosisIndications:V enous Thrombosis New Bag 02/20/2020 7:52 AM BLEACH TESTER 18 Units/kg/hr 18.38 mL/hr influenza quadrivalent (FLUZONE HIGH DOSE) 240 mcg/0.7 mL vaccine (HIGH DOSE age 65 years and up) 0.7 mL 0.7 mL, intramuscular, During hospitalization, immunization, Starting on Sat02/20/20 at 1959, For 1 dose Given 02/20/2020 9:10 PM BLEACH TESTER 0.7 mL Right Deltoid ioversoL (OPTIRAY 350) syringe syringe 100 mL 100 mL, intravenous, Once in imaging, contrast, Starting on Sat02/19/20 at 2148, For 1 dose Given 02/19/2020 10:01 PM BLEACH TESTER 100 mL lisinopriL (PRINIVIL,ZESTRIL) tablet 20 mg 20 mg, oral, Daily, First dose on Sat02/20/20 at 1615 Given 02/21/2020 7:49 AM BLEACH TESTER 20 mg Given 02/20/2020 6:17 PM BLEACH TESTER 20 mg lisinopriL (PRINIVIL,ZESTRIL) tablet 40 mg 40 mg, oral, Daily, First dose (after last modification) on Sat02/22/20 at 0900 Given 02/22/2020 8:41 AM BLEACH TESTER 40 mg magnesium oxide (MAG-OX) tablet 400 mg 400 mg, oral, Daily, First dose on Sat02/22/20 at 0900, 1 tablet = Magnesium oxide 400 mg = 241.3 mg elemental magnesium, Indications: hypomagnesemiaIndications:hypomagnesemia Given 02/22/2020 8:41 AM BLEACH TESTER 400 mg magnesium sulfate 4 g/100 mL in water (premix) 4 g 4 g, intravenous, Administer over 90 Minutes, Once, On Sat02/22/20 at 0815, For 1 dose New Bag 02/22/2020 9:05 AM BLEACH TESTER 4 g metoprolol tartrate (LOPRESSOR) immediate release tablet 50 mg 50 mg, oral, 2 times daily, First dose on Sat02/20/20 at 1104 Given 02/22/2020 8:42 AM BLEACH TESTER 50 mg Given 02/21/2020 8:01 PM BLEACH TESTER 50 mg Given 02/21/2020 7:48 AM BLEACH TESTER 50 mg multivit ongliwtg-jffh-OU-calcium (THERA-M) tablet 1 tablet 1 tablet, oral, Daily, First dose on 02/20/20 at 1615 Given 02/22/2020 8:42 AM BLEACH TESTER 1 tablet Given 02/21/2020 7:49 AM BLEACH TESTER 1 tablet Given 02/20/2020 6:17 PM BLEACH TESTER [address] (PROTONIX) extended release tablet 40 mg 40 mg, oral, Daily, First dose on 02/20/20 at 1615, Do not crush, chew, cut, dissolve, open or otherwise manipulate tablet/capsule., Indications: Stress Ulcer ProphylaxisIndications:Stress Ulcer Prophylaxis Given 02/22/2020 8:42 AM BLEACH TESTER 40 mg Given 02/21/2020 7:49 AM BLEACH TESTER 40 mg Given 02/20/2020 6:17 PM BLEACH TESTER 40 mg potassium chloride ER (KLOR-CON) extended release tablet 20 mEq 20 mEq, oral, Daily, First dose on 02/20/20 at 1615, Do not crush, chew, cut, dissolve, open or otherwise manipulate tablet/capsule. Given 02/20/2020 6:17 PM BLEACH TESTER 20 mEq potassium chloride ER (KLOR-CON) extended release tablet 40 mEq 40 mEq, oral, Daily, First dose (after last modification) on 02/21/20 at 0900, Do not crush, chew, cut, dissolve, open or otherwise manipulate tablet/capsule. Given 02/22/2020 8:42 AM BLEACH TESTER 40 mEq Given 02/21/2020 7:49 AM BLEACH TESTER 40 mEq potassium citrate ER (UROCIT-K) extended release tablet 40 mEq 40 mEq, oral, Once, On 02/21/20 at 0130, For 1 dose Given 02/21/2020 12:58 AM BLEACH TESTER 40 mEq terazosin (HYTRIN) capsule 10 mg 10 mg, oral, Nightly, First dose on 02/20/20 at 2100 Given 02/21/2020 8:00 PM BLEACH TESTER 10 mg Given 02/20/2020 9:09 PM BLEACH TESTER 10 mg thiamine (VITAMIN B1) tablet 100 mg 100 mg, oral, Daily, First dose on 02/20/20 at 1615 Given 02/22/2020 8:42 AM BLEACH TESTER 100 mg Given 02/21/2020 7:49 AM BLEACH TESTER 100 mg Given 02/20/2020 6:17 PM BLEACH TESTER 100 mg documented in this encounter Discontinued Medications Medication Sig Discontinue Reason Start Date End Da te apixaban (ELIQUIS) 5 mg tabletIndications:atria l fibrillation Take 1 tablet (5 mg total) by mouth every 12 (twelve) hours 02/21/2020 02/21/2020 folic acid (FOLVITE) 1 mg tablet Take 1 mg by mouth daily Reorder 02/22/2020 terazosin (HYTRIN) 10 mg capsule Take 10 mg by mouth nightly Reorder 02/22/2020 magnesium oxide (MAG-OX) 400 mg (241.3 mg elemental magnesium) tabletIndications:hypom agnesemia Take 400 mg by mouth daily Reorder 02/22/2020 metoprolol tartrate (LOPRESSOR) 50 mg immediate release tablet Take 1 tablet (50 mg total) by mouth 2 (two) times a day Reorder 12/28/2019 02/22/2020 apixaban (ELIQUIS) 5 mg tabletIndications:atria l fibrillation Take 1 tablet (5 mg total) by mouth every 12 (twelve) hours 02/21/2020 02/22/2020 diltiazem (TIAZAC) 360 mg 24 hr capsule Take 360 mg by mouth daily Stop Taking at Discharge 02/22/2020 aspirin 325 mg enteric coated tablet Take 325 mg by mouth daily Stop Taking at Discharge 02/22/2020 exlpvktn-mwrvpjf-imdv-l utein tablet Take by mouth Stop Taking at Discharge 02/22/2020 omeprazole (PriLOSEC) 20 mg capsule Take 20 mg by mouth daily Stop Taking at Discharge 02/22/2020 QUEtiapine (SEROquel) 25 mg tablet Take 12.5 mg by mouth nightly Stop Taking at Discharge 02/22/2020 acetaminophen 500 mg capsule Take 2 capsules (1,000 mg total) by mouth every 6 (six) hours as needed for pain Stop Taking at Discharge 12/23/2019 02/22/2020 sodium chloride 0.9% injection Flush drain with 10cc NS bid Stop Taking at Discharge 12/23/2019 02/22/2020 documented as of this encounter Active and Recently Administered Medications Times are shown in BLEACH TESTER. Scheduled Medication Order 02/20/2020 02/21/2020 02/22/2020 albuterol 2.5 mg/0.5 mL nebulizer solution 2.5 mg (CANCELED) 2.5 mg, nebulization, Every 4 hours (correspondent), First dose on 02/20/20 at 1800 1754 (Given - Provider: Arden Tamayo, V[employer]LEYBALL COMMENTATOR) apixaban (ELIQUIS) tablet 5 mg 5 mg, oral, Every 12 hours scheduled, First dose on 02/20/20 at 2100, Nurse to discontinue heparin infusion order and associated bolus at first administration of apixaban using ? order condition met? order source, Indications: atrial fibrillation 2109 (Given - Provider: Dmitry Carr, GAURAV) 0749 (Given - Provider: Quita Flores RN)2000 (Given - Provider: Dmitry Carr RN) 0842 (Given - Provider: Elena Pradhan, RN) cholecalciferol (VITAMIN D-3) capsule 1,000 Units 1,000 Units, oral, Daily, First dose on 02/20/20 at 1615 1818 (Given - Provider: Quita Flores RN) 0749 (Given - Provider: Quita Flores RN) 0842 (Given - Provider: Elena Pradhan, GAURAV) dilTIAZem XR (CARDIZEM CD,DILACOR XR) 24 hour capsule 360 mg (CANCELED) 360 mg, oral, Daily, First dose on 02/20/20 at 1104, Do not crush, chew, cut, dissolve, open or otherwise manipulate tablet/capsule. 1205 (Given - Provider: Deann Harrell, GAURAV) folic acid (FOLVITE) tablet 1 mg 1 mg, oral, Daily, First dose on 02/20/20 at 1615 1818 (Given - Provider: Quita Flores RN) 0749 (Given - Provider: Quita Flores RN) 0842 (Given - Provider: Elena Pradhan, GAURAV) furosemide (LASIX) 10 mg/mL injection 40 mg (COMPLETED) 40 mg, intravenous, Administer over 1 Minutes, Once, On 02/20/20 at 1615, For 1 dose, Room temperature only 1818 (Given - Provider: Quita Flores RN) furosemide (LASIX) 10 mg/mL injection 40 mg (COMPLETED) 40 mg, intravenous, Administer over 1 Minutes, Once, On Sat02/21/20 at 1200, For 1 dose, Room temperature only 1427 (Given - Provider: Quita Flores RN) heparin 1,000 unit/mL injection 8,200 Units (COMPLETED) 8,200 Units (rounded from 8,168 Units = 80 Units/kg ? 102.1 kg), intravenous, Once, On 02/20/20 at 0740, For 1 dose, Initial bolus prior to starting heparin infusion. Do not adjust initial bolus based on patient PTT., Indications: Venous Thrombosis 0755 (Given - Provider: Gilda Fisher RN) lisinopriL (PRINIVIL,ZESTRIL) tablet 20 mg (CANCELED) 20 mg, oral, Daily, First dose on 02/20/20 at 1615 1817 (Given - Provider: Quita Flores RN) 0749 (Given - Provider: Quita Flores RN) lisinopriL (PRINIVIL,ZESTRIL) tablet 40 mg 40 mg, oral, Daily, First dose (after last modification) on Sat02/22/20 at 0900 0841 (Given - Provider: Elena Pradhan RN) magnesium oxide (MAG-OX) tablet 400 mg 400 mg, oral, Daily, First dose on Sat02/22/20 at 0900, 1 tablet = Magnesium oxide 400 mg = 241.3 mg elemental magnesium, Indications: hypomagnesemia 0841 (Given - Provider: Elena Pradhan RN) magnesium sulfate 4 g/100 mL in water (premix) 4 g (COMPLETED) 4 g, intravenous, Administer over 90 Minutes, Once, On Sat02/22/20 at 0815, For 1 dose 0905 (New Bag - Provider: Elena Pradhan RN) metoprolol tartrate (LOPRESSOR) immediate release tablet 50 mg 50 mg, oral, 2 times daily, First dose on 02/20/20 at 1104 1106 (Given - Provider: Gilda Fisher, GAURAV)2110 (Given - Provider: Dmitry Carr RN) 0748 (Given - Provider: Quita Floers RN)2000 (Given - Provider: Dmitry Carr RN) 0842 (Given - Provider: Elena Pradhan, GAURAV) multivit hlkrjyrl-mhsn-JF-calcium (THERA-M) tablet 1 tablet 1 tablet, oral, Daily, First dose on 02/20/20 at 1615 1816 (Given - Provider: Quita Flores RN) 0749 (Given - Provider: Quita Flores RN) 0842 (Given - Provider: Elena Pradhan, GAURAV) nicotine (NICODERM CQ) 21 mg patch 24 hour 1 patch 1 patch, transdermal, Administer over 24 Hours, Daily, First dose on 02/20/20 at 1615, Apply a new patch every 24 hours to a clean, dry, hairless site on the upper arm or hip., Indications: Nicotine Dependence 1817 (Not Given - Provider: Quita Flores RN - Reason: Patient/family refused) 749 (Not Given - Provider: Quita Flores RN - Reason: Patient/family refused) 0845 (Not Given - Provider: Elena Pradhan RN - Reason: Patient/family refused) pantoprazole DR (PROTONIX) extended release tablet 40 mg 40 mg, oral, Daily, First dose on 02/20/20 at 1615, Do not crush, chew, cut, dissolve, open or otherwise manipulate tablet/capsule., Indications: Stress Ulcer Prophylaxis 1816 (Given - Provider: Quita Flores RN) 0749 (Given - Provider: Quita Flores RN) 0842 (Given - Provider: Elena Pradhan RN) potassium chloride ER (KLOR-CON) extended release tablet 20 mEq (CANCELED) 20 mEq, oral, Daily, First dose on 02/20/20 at 1615, Do not crush, chew, cut, dissolve, open or otherwise manipulate tablet/capsule. 1816 (Given - Provider: Quita Flores RN) potassium chloride ER (KLOR-CON) extended release tablet 40 mEq 40 mEq, oral, Daily, First dose (after last modification) on 02/21/20 at 0900, Do not crush, chew, cut, dissolve, open or otherwise manipulate tablet/capsule. 0749 (Given - Provider: Quita Flores RN) 0842 (Given - Provider: Elena Pradhan, GAURAV) potassium citrate ER (UROCIT-K) extended release tablet 40 mEq (COMPLETED) 40 mEq, oral, Once, On 02/21/20 at 0130, For 1 dose 0058 (Given - Provider: Dmitry Carr, GAURAV) terazosin (HYTRIN) capsule 10 mg 10 mg, oral, Nightly, First dose on 02/20/20 at 2100 2109 (Given - Provider: Dmitry Carr, RN) 2000 (Given - Provider: Dmitry Carr, GAURAV) thiamine (VITAMIN B1) tablet 100 mg 100 mg, oral, Daily, First dose on 02/20/20 at 1615 1817 (Given - Provider: Quita Flores RN) 0749 (Given - Provider: Quita Flores RN) 0842 (Given - Provider: Elena Pradhan, GAURAV) Continuous Medication Order 02/20/2020 02/21/2020 02/22/2020 heparin in 0.45% sodium chloride 25,000 units/250 mL (100 units/mL) infusion (premix) (CANCELED) 1-33 Units/kg/hr ? 102.1 kg (1.021-33.693 mL/hr, rounded to 1.02-33.69 mL/hr), intravenous, Titrated, Starting on 02/20/20 at 0740, WEIGHT-BASED HEPARIN INFUSION Initial rate 18 Units/kg/hr. Adjust infusion based upon nomogram: PTT less than 40 seconds: Bolus if ordered (see PRN bolus order) , then increase infusion rate 3 units/kg/hour PTT 40 - 50.9 seconds: Bolus if ordered (see PRN bolus order), then increase infusion rate 2 units/kg/hour, PTT 51 - 59.9 seconds: No bolus, increase infusion rate 1 unit/kg/hour PTT 60 - 94.9 seconds: No change PTT 95 - 104.9 seconds: No bolus, decrease infusion rate 1 unit/kg/hour PTT 105 - 114.9 seconds: Hold infusion for 30 minutes, then decrease infusion rate 2 units/kg/hour PTT 115 or greater seconds: Hold infusion for 1 hour, then decrease infusion rate 3 units/kg/hour Draw STAT PTT 6 hrs after initial heparin bolus, after each rate change, and every 6 hours until 2 consecutive PTTs are within therapeutic range. Once two consecutive PTT's are therapeutic (60-94.9 seconds), then draw PTT every AM until heparin is discontinued., Indications: Venous Thrombosis 0752 (New Bag - Provider: Gilda Fisher, RN) PRN Medication Order 02/20/2020 02/21/2020 02/22/2020 acetaminophen (TYLENOL) tablet 650 mg 650 mg, oral, Every 4 hours PRN, 1st line for pain, Starting on 02/20/20 at 1744 0842 (Given - Provid er: Elena Pradhan RN) albuterol 2.5 mg/0.5 mL nebulizer solution 2.5 mg 2.5 mg, nebulization, Every 4 hours PRN (correspondent), wheezing, Starting on 02/20/20 at 1830 influenza quadrivalent [id number] (FLUZONE HIGH DOSE) 240 mcg/0.7 mL vaccine (HIGH DOSE age 65 years and up) 0.7 mL (COMPLETED) 0.7 mL, intramuscular, During hospitalization, immunization, Starting on 02/20/20 at 1959, For 1 dose 2109 (Given - Provider: Dmitry Carr RN) ramelteon (ROZEREM) tablet 8 mg 8 mg, oral, Nightly PRN, sleep, Starting on 02/20/20 at 1542, Indications: Sleep-Onset Insomnia senna-docusate (PERICOLACE) 8.6-50 mg per tablet 1 tablet 1 tablet, oral, 2 times daily PRN, constipation, Starting on 02/20/20 at 1542, Indications: constipation documented in this encounter Orders Medications Ordered That Bimal ht Not Have Been Administered Count Last Ordered Date First Ordered Date acetaminophen (TYLENOL) tablet 1,000 mg 1 1 04/21/2019 albuterol 2.5 mg/0.5 mL nebu lizer solution 2.5 mg 1 02/20/2020 albuterol HFA (PROVENTIL HFA ,VENTOLIN HFA,PROAIR HFA) 90 mcg/actuation inhaler 2 puff 1 02/20/2020 aspirin enteric coated tablet 325 mg 1 02/06 heparin 1,000 unit/mL inject ion 4,100 Units 1 02/20/2020 heparin 1,000 unit/mL inject ion 8,200 Units 1 02/20/2020 nicotine (NICODERM CQ) 21 mg patch 24 hour 1 patch 1 02/20/2020 ramelteon (ROZEREM) tablet 8 mg 1 0 senna-docusate (PERICOLACE) 8.6-50 mg per tablet 1 tablet 1 02/20/2020 Lab Orders Without Results Count Last Ordered D ate First Ordered Date PRO B-TYPE NATRIURETIC PEPTIDE 1 02/20/2020 TSH REFLEX TO FREE T4 1 02/20/2020 ALBUMIN 1 02/19/2020 Isolation Count Last Ordered Date First Orde red Date INITIATE CONTACT ISOLATION 1 02/21/2020 IV Count Last Ordered Date First Orde red Date INSERT PERIPHERAL IV 1 02/19/2020 SALINE LOCK IV 1 02/19/2020 CORE MEASURES Count Last Ordered Date First Ord ered Date REASON FOR NO VTE PROPHYLAXIS AT ADMISSION 1 02/20/2020 ADT Patient Update Count Last Ordered Date Firs t Ordered Date ED IP DECISION TO ADMIT 1 02/20/2020 documented in this encounter Additional Health Concerns Infection Onset Date Last Indicated Resolved Time MDR gram neg/ESBL Comment:06/16/2021 IP Review - Pt with scrotal abscess, but is not actively draining (last documented draining on 06/14). Pt remains intubated so requires trach aspirate for isolation discontinuation. Provider notified. Amanda Walker RN 12/19/2019 12/19/2019 documented as of this encounter Care Teams Community Arts Worker Relationship Specialty Start Date End Date Jean-Claude Crawford MD [address] [place] [address] PCP - General Family Medicine 08/18/19 04/11/20 documented as of this encounter
--- OUTSIDE RECORDS SUMMARY | 2024-04-08 10:39 | XMS_ITS | Encounter Summary ---
Author Organization [facility] Address [address] [facility] [address] [place] [address] Care Team Providers Care Bartender Name Role Phone Jean-Claude Crawford MD Primary Care Provider Encounter Details Date Type Department Care Team (Late st Contact Info) Description 11/13/2019 Orders Only [facility] Cardiology [address] [place] [address] Araceli Tom, GARIMA [address] [place] [address] Social History Tobacco Use Types Packs/Day Years Used Date Smoking Tobacco: Every Day Cigarettes Smokeless Tobacco: Never Alcohol Use Standard Drinks/Week Comments Yes 0 (1 standard drink = 0.6 oz pur e alcohol) limited Sex and Gender Information Value Date Recorded Sex Assigned at Not on file 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 Gender Identity Not on file Sexual Orientation Not on file documented as of this encounter Plan of Treatment Not on file documented as of this encounter Procedures Procedure Name Priority Date/Time Associated Diagnosis Comments CARDIOLOGY DOCUMENT SCAN Routine 11/13/2019 documented in this encounter Results * SCAN - CARDIOLOGY (11/13/2019) Anatomical Region Laterality Modality Other Araceli Tom NP CV CARDIAC SERVICES PROCEDURES F inal Result documented in this encounter Visit Diagnoses Not on filedocumented in this encounter Care Teams Bartender Relationship Specialty Start Date End Date Jean-Claude Crawford MD [address] [facility] [address] [facility] [address] [place] [id number] PCP - General Family Medicine 08/18/19 04/11/20 documented as of this encounter
--- OUTSIDE RECORDS SUMMARY | 2024-04-08 10:39 | XMS_ITS | Encounter Summary ---
Author Organization [facility] Address [address] [place] [address] Phone Care Team Providers Care Winch Runner Name Role Phone Jean-Claude Crawford MD Primary Care Provider Reason for Visit * Reason Comments New Patient * Consultation (Routine) - Closed Specialty Diagnoses / Procedures Referred By Contvon t Referred To Contact Hepatobiliary Surgery Diagnoses Cholecystitis Jean-Claude Crawford MD [address] [place] [address] Phone: tel: fax: Eugene Gomez MD [address] [facility] [id number] [place] [address] Phone: tel: fax: Referral ID Status Reason Start Date Expiration Date V isits Requested Visits Authorized [id number] Closed Specialty Services Required 12/21/2019 01/19/2021 99 99 Encounter Details Date Type Department Care Team (Latest Contact Info) Description 01/04/2020 2:15 PM CDT Office Visit [facility] Surgery [address] [facility] 8th [place] [address] [place] [address] Eugene Gomez MD [address] [facility] [phone] [place] [address] (work) Cholecystitis (Primary Dx) Social History Tobacco Use Types Packs/Day Years Used Date Smoking Tobacco: Every Day Cigarettes Smokeless Tobacco: Never Alcohol Use Standard Drinks/Week Comments Yes 0 (1 standard drink = 0.6 oz pur e alcohol) limited Sex and Gender Information Value Date Recorded Sex Assigned at Not on file Legal Sex 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 Gender Identity Not on file Sexual Orientation Not on file documented as of this encounter Last Filed Vital Signs Vital Sign Reading Time Taken Comments Blood Pressure 127/83 01/04/2020 1:59 PM CDT Pulse 79 01/04/2020 1:59 PM CDT Temperature - - Respiratory Rate - - Oxygen Saturation 98% 01/04/2020 1:59 PM CDT Inhaled Oxygen Concentration - - Weight 78 kg (172 lb) 01/04/2020 1:59 PM CDT Height 180.3 cm (5' 11 ) 01/04/2020 1:59 PM CDT Body Mass Index 23.99 01/04/2020 1:59 PM CDT documented in this encounter Progress Notes * Eugene Gomez MD - 01/04/2020 2:15 PM CDT Images from the original note were not included. Eugene Gomez M.D., F.A.C.S. Chief, Section of Surgical Oncology city plant supervisor [facility] - voice - fax [facility] Mailing Address: Overnight Mailing Address: [address] [place] [address] [address] [facility], [address] [place], [place] [address] [place], [place] [address] NEW PATIENT EVALUATION DATE OF VISIT: 01/04/20 REASON FOR VISIT: Acute cholecystitis requiring gallbladder drainage, abdominal wall abscess, hospital follow-up. Consult requested by Dr. Jean-Claude Crawford, *. HISTORY OF PRESENT ILLNESS: Mr. Redman is a 69 y.o. male who was an inpatient from 12/18/2019 to 12/28/2019 after he was transferred from an outside hospital for perforated cholecystitis. 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 ?? The patient initially??presented to [facility]in July, with acute cholecystitis. During evaluation [...] pericholecystic fluid. Mr. Redman was discharged to SNF and follows-up today. Currently, Mr. Redman is feeling well. Denies any abdominal pain. No issues with bowel or bladder habits. No fever/chils. Finished his course of antibiotics yesterday. Currently able to ambulate 400 feet with a walker, has not done stairs yet. He is eating better but still not full meals. Trying to take some ensure but not always consistently. His drain has been putting out an unknown amount of fluid per day, but apparently per patient it isnon-bilious appearing. There are no notes from the SNF. Mr. Redman underwent a drain study in interventional radiology today, which I have personally reviewed, demonstrating a persistent abscess cavity without communication with the biliary tree. IR exchanged the drain catheter. Mr. Redman underwent recent blood work, which I have personally reviewed. This includes: CBC: Lab Results Component Value Date WBC 5.4 12/20/2019 HGB 10.4 (L) 12/20/2019 HCT 31.5 (L) 12/20/2019 MCV 95.2 12/20/2019 LABPLAT 266 12/20/2019 BMP: Lab Results Component Value Date GLUCOSE 82 12/20/2019 CALCIUM 8.4 (L) 12/20/2019 SODIUM 138 12/20/2019 POTASSIUM 4.1 12/20/2019 CO2 26 12/20/2019 CHLORIDE 105 12/20/2019 BUNSER 5 (L) 12/20/2019 CREATININE 0.48 (L) 12/20/2019 LFTs: Lab Results Component Value Date ALT 12 12/20/2019 AST 26 12/20/2019 ALKPHOS 95 12/20/2019 BILITOT 0.2 12/20/2019 Albumin Lab Results Component Value Date ALBUMIN 2.2 (L) 12/20/2019 PAST MEDICAL HISTORY: Past Medical History: Diagnosis Date ??? Atrial fibrillation (CMS/HCC) ??? BPH (benign prostatic hyperplasia) ??? CHF (congestive heart failure) (CMS/HCC) ??? Cholecystitis ??? GERD (gastroesophageal reflux disease) ??? Hyperlipidemia ??? Hypertension ??? TIA (transient ischemic attack) PAST SURGICAL HISTORY: Past Surgical History: Procedure Laterality Date ??? ABSCESS CATHETER INJECTION N/A 12/25/2019 ??? FLUID DRAIN SOFT TISSUE N/A 12/19/2019 ALLERGIES: Penicillins MEDICATIONS: Current Outpatient Medications: ??? acetaminophen 500 mg capsule, Take 2 capsules (1,000 mg total) by mouth every 6 (six) hours as needed for pain, Disp: 30 tablet, Rfl: ??? aspirin 325 mg enteric coated tablet, Take 325 mg by mouth daily, Disp: , Rfl: ??? cholecalciferol (VITAMIN D-3) 5,000 unit tablet, , Disp: , Rfl: ??? diltiazem (TIAZAC) 360 mg 24 hr capsule, Take 360 mg by mouth daily, Disp: , Rfl: ??? folic acid (FOLVITE) 1 mg tablet, Take 1 mg by mouth daily, Disp: , Rfl: ??? levalbuterol (XOPENEX) 1.25 mg/3 mL nebulizer solution, Take 1.25 mg by nebulization 3 (three) times a day, Disp: , Rfl: ??? magnesium oxide (MAG-OX) 400 mg (241.3 mg elemental magnesium) tablet, Take 400 mg by mouth daily, Disp: , Rfl: ??? metoprolol tartrate (LOPRESSOR) 50 mg immediate release tablet, Take 1 tablet (50 mg total) by mouth 2 (two) times a day, Disp: 60 tablet, Rfl: 11 ??? kiylhrwo-bmckgio-thsh-lutein tablet, Take by mouth, Disp: , Rfl: ??? omeprazole (PriLOSEC) 20 mg capsule, Take 20 mg by mouth daily, Disp: , Rfl: ??? ondansetron ODT (ZOFRAN-ODT) 4 mg disintegrating tablet, Take 1 tablet (4 mg total) by mouth every 4 (four) hours as needed for nausea or vomiting, Disp: 20 tablet, Rfl: ??? polyethylene glycol (MIRALAX) 17 gram packet, Take 17 g by mouth daily, Disp: , Rfl: ??? QUEtiapine (SEROquel) 25 mg tablet, Take 12.5 mg by mouth nightly, Disp: , Rfl: ??? sodium chloride 0.9% injection, Flush drain with 10cc NS bid, Disp: 5 mL, Rfl: ??? terazosin (HYTRIN) 10 mg capsule, Take 10 mg by mouth nightly, Disp: , Rfl: ??? thiamine (VITAMIN B1) 100 mg tablet, [...] use: has no history on file for drug. ??? Lives in [place] [address]*. Employed as retired. No limitations on activity. He is ableto ambulate without difficulty and can walk up 0 flights of stairs before becoming short of breath. ??? The patient is accompanied today by his FAMILY HISTORY: Mr. Redman's family history includes Lung cancer in his father.. Of note, there is no family history of rluxax-igtrrqzpc-ziqbhtg disease or cancer. REVIEW OF SYSTEMS: The [...] mentation. PHYSICAL EXAMINATION: VITAL SIGNS: Weight - 78 kg (172 lb) pounds, Blood pressure - 127/83, Heart rate - 79 bpm, Temperature - ??F. GENERAL: Alert and oriented x 3 in no apparent distress. HEENT: PERRLA, EOMI. No masses. Trachea midline, thyroid normal. CHEST: Clear to auscultation bilaterally. HEART: Regular rate and rhythm. No murmurs. ABDOMEN: Soft, nontender, nondistended with no masses or hernias. No hepatosplenomegaly. No reboundor guarding. IR drain in RUQ with serous, non- bilious drainage. EXTREMITIES: Warm and well perfused. 2+ distal pulses. NEUROLOGIC: No focal deficits. SKIN: No skin lesions. No cervical, supraclavicular, axillary, or inguinal adenopathy. PSYCHIATRIC: Within normal limits. REVIEW OF LABORATORY AND RADIOGRAPHIC STUDIES: See HPI. ASSESSMENT: 69 y.o. male with complicated cholecystitis treated with several percutanous drains that has been recurrent in nature. Based on his cholangiogram today, he has a persistent abscess cavitybut no communication with the biliary tree. He had a drain exchange. PLAN: He will see IR in 2 weeks for drain re-evaluation. Currently his nutrition is poor, albumin is 2.2. At this time it appears that the gallbladder perforation has sealed and the abscess cavity has decreased in size though not resolved completely. The patient is asymptomatic from a biliary standpoint without any jaundice or biliary colic symptoms. At this time I feel that the best course wouldbe to continue to follow with IR until they feel that the abscess cavity is obliterated and then remove the drain. From a surgical standpoint the patient is asymptomatic and needs to improve his nutritional standpoint before I would consider doing a cholecystectomy. ATTENDING ATTESTATION: I, Eugene Gomez M.D., the attending surgeon have seen and examined the patient both with Dr. Aguilar and independently. I agree with the history, physical exam, and findings asdescribed in the above note. Eugene Gomez M.D., F.A.C.S. Chief, Section of Surgical Oncology city plant supervisor CC: Patient Care Team: Jean-Claude Crawford MD as PCP - General (Family Medicine) Florist Manager completed by [employer]. Florist Manager variances may occur. documented in this encounter Plan of Treatment Not on file documented as of this encounter Visit Diagnoses Diagnosis Cholecystitis- Primary Cholecystitis, unspecified documented in this encounter Orders Outpatient Referral Count Last Ordered Date Fir st Ordered Date AMB REFERRAL TO HEPATOBILIARY SURGERY 1 documented in this encounter Additional Health Concerns Infection Onset Date Last Indicated Resolved Time MDR gram neg/ESBL Comment:06/16/2021 IP Review - Pt with scrotal abscess, but is not actively draining (last documented draining on 06/14). Pt remains intubated so requires trach aspirate for isolation discontinuation. Provider notified. Amanda Walker RN 12/19/2019 12/19/2019 documented as of this encounter Care Teams Winch Runner Relationship Specialty Start Date End Date Jean-Claude Crawford MD [address] [place] [address] PCP - General Family Medicine 08/18/19 04/11/20 documented as of this encounter
--- OUTSIDE RECORDS SUMMARY | 2024-04-08 10:39 | XMS_ITS | Encounter Summary ---
Author Organization [facility] Address [address] [place] [address] Phone Care Team Providers Care Thermostat Mechanic Name Role Phone Jean-Claude Crawford MD Primary Care Provider Reason for Referral * Consultation (Routine) - Closed Specialty Diagnoses / Procedures Referred By Contac t Referred To Contact Hepatobiliary Surgery Diagnoses Cholecystitis Jean-Claude Crawford MD [address] [place] [address] Phone: tel: fax: Fozia Oates MD [address] [facility] [phone] [place] [address] Phone: tel: fax: Referral ID Status Reason Start Date Expiration Date V isits Requested Visits Authorized [id number] Closed Specialty Services Required 12/21/2019 01/19/2021 99 99 Question Answer Please select the performing region: [facility] (All Locations) [[id number]] To provider: FOZIA OATES [[id number]] # of visits: 1 Encounter Details Date Type Department Care Team (Late st Contact Info) Description 12/21/2019 Orders Only [facility] Surgery [address] [place] [address] Jean-Claude Crawford MD [address] [place] [address] Cholecystitis (Primary Dx) Social History Tobacco Use Types Packs/Day Years Used Date Smoking Tobacco: Every Day Cigarettes Smokeless Tobacco: Never Alcohol Use Standard Drinks/Week Comments Yes 0 (1 standard drink = 0.6 oz pur e alcohol) limited Sex and Gender Information Value Date Recorded Sex Assigned at Not on file Legal Sex Male 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 Gender Identity Not on file Sexual Orientation Not on file documented as of this encounter Plan of Treatment Scheduled Referrals Name Type Priority Associated Diagnoses Order Schedule Ambulatory referral to Hepatobiliary Surgery Outpatient Referral Routine Cholecystitis Expected: 01/04/2020 (Approximate), Expires: 12/20/2020 documented as of this encounter Visit Diagnoses [...] documented as of this encounter Care Teams Thermostat Mechanic Relationship Specialty Start Date End Date Jean-Claude Crawford MD [address] [place] [address] PCP - General Family Medicine 08/18/19 04/11/20 documented as of this encounter
--- OUTSIDE RECORDS SUMMARY | 2024-04-08 10:39 | XMS_ITS | Encounter Summary ---
Author Organization [facility] Address [address] [facility] [address] [place] [address] Phone Care Team Providers Care Stock Manager Name Role Phone Jean-Claude Crawford MD Primary Care Provider Encounter Details Date Type Department Care Team (Late st Contact Info) Description 01/01/2020 Documentation [facility] Surgery [address] [facility] 8th [place] [address] [place] [phone] Stephany Chavez PA [address] [facility] [phone] [place] [address] Social History Tobacco Use Types Packs/Day Years Used Date Smoking Tobacco: Every Day Cigarettes Smokeless Tobacco: Never Alcohol Use Standard Drinks/Week Comments Yes 0 (1 standard drink = 0.6 oz pur e alcohol) limited Sex and Gender Information Value Date Recorded Sex Assigned at Not on file 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 No concerning findings. Completed IV meropenem course. OK to remove midline catheter documented in this encounter Plan of Treatment [...] as of this encounter Care Teams Stock Manager Relationship Specialty Start Date End Date Jean-Claude Crawford MD [address] [facility] [address] [place] [phone] PCP - General Family Medicine 08/18/19 04/11/20 documented as of this encounter
--- OUTSIDE RECORDS SUMMARY | 2024-04-08 10:39 | XMS_ITS | Encounter Summary ---
Author Organization [facility] Address [address] [facility] [address] [place] [address] Care Team Providers Care Sewing Techniques Demonstrator Name Role Phone Jean-Claude Crawford MD Primary Care Provider Encounter Details Date Type Department Care Team (Late st Contact Info) Description 11/16/2019 Orders Only [facility] Cardiology [address] [facility] [address] [place] [phone] Provider, MD Manish [address] [place] [address] Social History Tobacco Use Types Packs/Day Years Used Date Smoking Tobacco: Every Day Cigarettes Smokeless Tobacco: Never Alcohol Use Standard Drinks/Week Comments Yes 0 (1 standard drink = 0.6 oz pur e alcohol) limited Sex and Gender Information Value Date Recorded Sex Assigned at Not on file Legal Sex Male 9:10 PM ATTENDING AMBULATORY CARE Gender Identity Not on file Sexual Orientation Not on file documented as of this encounter Plan of Treatment Not on file documented as of this encounter Procedures Procedure Name Priority Date/Time Associated Diagnosis Comments CARDIOLOGY DOCUMENT SCAN Routine 11/16/2019 documented in this encounter Results * SCAN - CARDIOLOGY (11/16/2019) Anatomical Region Laterality Modality Other us Historical Provider CV CARDIAC SERVICES JON ZHANG Final Result documented in this encounter Visit Diagnoses Not on filedocumented in this encounter Care Teams Sewing Techniques Demonstrator Relationship Specialty Start Date End Date Jean-Claude Crawford MD [address] [facility] [address] [place] [address] PCP - General Family Medicine 08/18/19 04/11/20 documented as of this encounter
--- OUTSIDE RECORDS SUMMARY | 2024-04-08 10:39 | XMS_ITS | Encounter Summary ---
Author Organization [facility] Healthcare Address [address] [place] [address] Care Team Providers Care Retail Analyst Name Role Phone Jean-Claude Crawford MD Primary Care Provider Reason for Referral * Diagnostic Imaging (Routine) - Closed Specialty Diagnoses / Procedures Referred By Contac t Referred To Contact Radiology Diagnoses Intra-abdominal abscess (CMS/HCC) (HCC) Procedures IR Inject Abscess Catheter Rui Bonilla MD Phone: tel: fax: [address] [address] Referral ID Status Reason Start Date Expiration Date Visits Re quested Visits Authorized [id number] Closed 01/04/2020 02/02/2021 1 1 * Diagnostic Imaging (Routine) - Closed Specialty Diagnoses / Procedures Referred By Contac t Referred To Contact Radiology Diagnoses Cholecystitis with perforation of gallbladder Procedures IR Inject Abscess Catheter Consult to Interventional Radiology Stephany Chavez PA Phone: tel: fax: [address] [address] Referral ID Status Reason Start Date Expiration Date Visits Re quested Visits Authorized [id number] Closed 12/21/2019 01/19/2021 1 1 Reason for Visit * Diagnostic Imaging (Routine) - Closed Specialty Diagnoses / Procedures Referred By Lei strong Referred To Contact Radiology Diagnoses Cholecystitis with perforation of gallbladder Procedures IR Inject Abscess Catheter Consult to Interventional Radiology Stephany Chavez PA Phone: tel: fax: [address] [address] Referral ID Status Reason Start Date Expiration Date Visits Re quested Visits Authorized [id number] Closed 12/21/2019 01/19/2021 1 1 Encounter Details Date Type Department Care Team (Late st Contact Info) Description 01/04/2020 9:27 AM CDT - 01/04/2020 11:44 AM CDT Hospital Encounter [facility] Radiology [address] [address] Rui Bonilla MD [facility] [address] [place] [address] Intra-abdominal abscess (CMS/HCC) (Primary Dx); Cholecystitis with perforation of gallbladder Discharge Disposition: Discharge to home or self care Social History Tobacco Use Types Packs/Day Years Used Date Smoking Tobacco: Every Day Cigarettes Smokeless Tobacco: Never Alcohol Use Standard Drinks/Week Comments Yes 0 (1 standard drink = 0.6 oz pur e alcohol) limited Sex and Gender Information Value Date Recorded Sex Assigned at Not on file 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 Gender Identity Not on file Sexual Orientation Not on file documented as of this encounter Last Filed Vital Signs Vital Sign Reading Time Taken Comments Blood Pressure 129/87 01/04/2020 11:26 AM CDT Pulse 90 01/04/2020 11:26 AM CDT Temperature 36 ??C (96.8 ??F) 01/04/2020 11:26 AM CDT Respiratory Rate 18 01/04/2020 11:26 AM CDT Oxygen Saturation 100% 01/04/2020 11:26 AM CDT Inhaled Oxygen Concentration - - Weight - - Height - - Body Mass Index - - documented in this encounter Discharge Diagnoses Diagnosis Encounter for change or removal of drains - ENCOUNTER FOR CHANGE OR REMOVAL OF DRAINS Other specified aftercare following surgery Displacement of other specified internal prosthetic devices, implants and grafts, initial encounter - DISPLACEMENT OF OTHER SPECIFIED INTERNAL PROSTHETIC DEVICES, IMPLANTS AND GRAFTS, INITIAL ENCOUNTER Cutaneous abscess of abdominal wall - CUTANEOUS ABSCESS OF ABDOMINAL WALL Perforation of gallbladder in cholecystitis - PERFORATION OF GALLBLADDER IN CHOLECYSTITIS Therapeutic (nonsurgical) and rehabilitative general- and plastic-surgery devices associated with adverse incidents - THERAPEUTIC (NONSURGICAL) AND REHABILITATIVE GENERAL- AND PLASTIC-SURGERY DEVICES ASSOCIATED WITH AD Unspecified place or not applicable - UNSPECIFIED PLACE OR NOT APPLICABLE documented in this encounter Discharge Instructions * Discharge Instructions* Lui Malik MD - 01/04/2020 11:31 AM CDT Interventional Radiology Outpatient Discharge Instructions/Note Diagnosis: Perforated cholecystitis, abscess Procedure: Drain check, exchange Limitations: [] No lifting greater than 5 [...] and dry. [x] You may shower tomorrow. [x] Change the dressing daily and if it becomes wet or dirty. [x] Cover entire area with plastic and tape down edges before showering to keep site clean and dry. [] The suture at your dialysis access site may be removed by the dialysis staff on ___/___/___ (date). Drainage Tube Care: [x] Flush tube with [x] 5ml Normal Saline [] 10 ml Normal Saline [] Other: [x] Flush tube [] once a day [x] Other:____twice a day [x] Record drainage output every day. [] Your tube is capped. Uncap the tube after or if severe pain or fever develops. (Please see teaching sheet). [] Call Interventional Radiology if there is leakage around the tube or the tube stops draining. To contact an Interventional Radiologist at [facility] call [phone] Saturday through Saturday from 7:30am-4:30pm. At all other times call [phone] and ask that the Interventional Radiologist be paged. To contact an Interventional Radiologist at [facility] call [phone] Saturday through Saturday from 7:30am-3:30pm. Special instructions: Please call Interventional Radiology for any procedure related questions or problems including: ?? Extreme swelling or bruising at the site. ?? Unusual drainage or bleeding from procedure site. ?? Fever of 101.5 F for more than 24 hours. ?? Severe procedure related pain. documented in this encounter Medications at Time [...] day 60 tablet 11 0 02/22/20 20 [id number] on-lutein tablet Take by mouth 02/21 20 [...] or self care documented in this encounter Miscellaneous Notes * Post-Procedure Note - Lui Malik MD - 01/04/2020 11:44 AM CDT Radiology Brief Post Procedure Note Attending: [employer] Or Barges Loader: Helena Sedation/Anesthesia: Local Pre-Op/Pre-Procedure Diagnosis: Abscess Post-Op/Post-Procedure Diagnosis: Abscess Procedure Performed: Drain check, exchange Procedure Findings: Persistent collection Complications: None Estimated Blood Loss: < 30 ml Specimens: None Condition: Stable Full report to follow. * Pre-Procedure Note - Byron Begum MD - 01/04/2020 10:17 AM CDT Radiology Procedure Plan Indication: Cholecystitis c/b gallbladder fossa/abdominal wall abscess s/p drainage catheter placement Planned Procedure: Drain check, possible exchange/removal documented in this encounter Plan of Treatment Not on file documented as of this encounter Procedures Procedure Name Priority Date/Time Associated Diagnosis Comments ABSCESS CATHETER INJECTION Schedule Routine, Read Routine (OP Routine) 01/04/2020 11:25 AM CDT Cholecystitis with perforation of gallbladder documented in this encounter Results * IR Inject Abscess Catheter (01/15/2020 10:20 [...] questions arise, please contact us by calling [phone]. Dictated by: Miladys Jamison The radiology attending [...] was on 01/04/20 for a 10 Fr [place]. Patient reports approximately 20-40ml milky yellow/white fluid out per day. Patient is asymptomatic from a biliary standpoint and not a surgical candidate at this time from a nutritional standpoint. ATTENDING PRESENCE: ??Sae Otero M.D., the attending radiologist, was present from the beginning to the end of the procedure. SEDATION: ??No sedation. TECHNIQUE: Prior to beginning the procedure, [place] Protocol was used to confirm the patient's identity and planned procedure. Fluoroscopy time has been recorded in the electronic medical record. After obtaining a printing bindery assistant image, the catheter was injected with dilute contrast and multiple fluoroscopic images obtained. ?? A sterile dressing was applied to the skin site. ESTIMATED BLOOD LOSS: Minimal. CONDITION: Stable DISCHARGED TO: ??Recovery and then to usp facility. FINDINGS: Images from the catheter check [...] was on 01/04/20 for a 10 Fr [place]. Patient reports approximately 20-40ml milky yellow/white fluid out per day. Patient is asymptomatic from a biliary standpoint and not a surgical candidate at this time from a nutritional standpoint. ATTENDING PRESENCE: Sae Otero M.D., the attending radiologist, was present from the beginning to the end of the procedure. SEDATION: No sedation. TECHNIQUE: Prior to beginning the procedure, [place] Protocol was used to confirm the patient's identity and planned procedure. Fluoroscopy time has been recorded in the electronic medical record. After obtaining a printing bindery assistant image, the catheter was injected with dilute contrast and multiple fluoroscopic images obtained. A sterile dressing was applied to the skin site. ESTIMATED BLOOD LOSS: Minimal. CONDITION: Stable DISCHARGED TO: Recovery and then to usp facility. FINDINGS: Images from the catheter check [...] questions arise, please contact us by calling [phone]. Dictated by: Miladys Jamison The radiology attending physician has personally reviewed this study, and had reviewed and/or edited this written report and agrees with it. Electronically signed by: Sae Otero M.D. Rui Bonilla MD IMG IR PROCEDURES Final Resul t * IR Inject Abscess Catheter (01/04/2020 11:25 AM CDT) Anatomical Region Laterality Modality Body N/A Radio Fluoroscop y 01/04/2020 6:26 PM CDT Impressions 01/05/2020 7:28 AM CDT Improving gallbladder fossa and subcutaneous collection. Catheter was exchanged to facilitate drainage and resolution. PLAN: Continue to monitor catheter output as well as the patient's clinical condition. ?? The catheter should be flushed 5 mL twice a day. ?? The patient will follow-up with us in ??10 days. If questions arise, please contact us by calling [phone]. Dictated by: Breanna Malik M.D. The radiology attending physician has personally reviewed this study, and had reviewed and/or edited this written report and agrees with it. Electronically signed by: Roberto Madrid M.D. Narrative 01/05/2020 7:28 AM CDT EXAMINATION: ??DRAINAGE CATHETER EVALUATION AND EXCHANGE HISTORY: ??69-year-old man with perforated cholecystitis with gallbladder fossa abscess managed by percutaneous drain ATTENDING PRESENCE: ??Roberto Madrid M.D., the attending radiologist, was present from the beginning to the end of the procedure. SEDATION: ??Local anesthesia only TECHNIQUE: ??Prior to beginning the procedure, [place] Protocol was used to confirm the patient's identity and planned procedure. Fluoroscopy time has been recorded in the electronic medical record. Maximum sterile barriers including cap, mask, hand hygiene, sterile gloves, sterile gown, large sterile drape and 2% chlorhexidine for cutaneous antisepsis were used. After obtaining a printing bindery assistant image, the catheter was injected with dilute contrast and multiple diagnostic fluoroscopic spot images were obtained. The skin overlying the collection was sterilely prepped, draped and infiltrated with 1% buffered lidocaine. The catheter was then exchanged over a [employer] guidewire for a new 10-Namibian multipurpose drainage catheter. ??Limited contrast injection confirmed appropriate placement of the catheter. The catheter was secured in place with a Prolene stitch and connected to suction bulb drainage. ??A sterile dressing was applied. ESTIMATED BLOOD LOSS: Minimal. CONDITION: Stable DISCHARGED TO: ??Recovery and then to outpatient recovery. FINDINGS: ??Images from the catheter injection demonstrate the persistent bilobed cavity slightly decreased in size compared to the prior exam. ??Both the superficial and deep component of the collection persisted. ??The existing drain was malpositioned and was exchanged. The catheter was draining serous fluid. Images from the catheter exchange show the catheter tip centered in the superficial component of the collection. Procedure Note Roberto Madrid MD - 01/05/2020 EXAMINATION: DRAINAGE CATHETER EVALUATION AND EXCHANGE HISTORY: 69-year-old man with perforated cholecystitis with gallbladder fossa abscess managed by percutaneous drain ATTENDING PRESENCE: Roberto Madrid M.D., the attending radiologist, was present from the beginning to the end of the procedure. SEDATION: Local anesthesia only TECHNIQUE: Prior to beginning the procedure, [place] Protocol was used to confirm the patient's identity and planned procedure. Fluoroscopy time has been recorded in the electronic medical record. Maximum sterile barriers including cap, mask, hand hygiene, sterile gloves, sterile gown, large sterile drape and 2% chlorhexidine for cutaneous antisepsis were used. After obtaining a printing bindery assistant image, the catheter was injected with dilute contrast and multiple diagnostic fluoroscopic spot images were obtained. The skin overlying the collection was sterilely prepped, draped and infiltrated with 1% buffered lidocaine. The catheter was then exchanged over a Bentson guidewire for a new 10-Namibian multipurpose drainage catheter. Limited contrast injection confirmed appropriate placement of the catheter. The catheter was secured in place with a Prolene stitch and connected to suction bulb drainage. A sterile dressing was applied. ESTIMATED BLOOD LOSS: Minimal. CONDITION: Stable DISCHARGED TO: Recovery and then to outpatient recovery. FINDINGS: Images from the catheter injection demonstrate the persistent bilobed cavity slightly decreased in size compared to the prior exam. Both the superficial and deep component of the collection persisted. The existing drain was malpositioned and was exchanged. The catheter was draining serous fluid. Images from the catheter exchange show the catheter tip centered in the superficial component of the collection. IMPRESSION: Improving gallbladder fossa and subcutaneous collection. Catheter was exchanged to facilitate drainage and resolution. PLAN: Continue to monitor catheter output as well as the patient's clinical condition. The catheter should be flushed 5 mL twice a day. The patient will follow-up with us in 10 days. If questions arise, please contact us by calling [phone]. Dictated by: Breanna Malik M.D. The radiology attending physician has personally reviewed this study, and had reviewed and/or edited this written report and agrees with it. Electronically signed by: Roberto Madrid M.D. Stephany SANDOVAL IM IR PROCEDURES Final R esult documented in this encounter Visit Diagnoses Diagnosis Intra-abdominal abscess (CMS/HCC) (HCC)- Primary Peritoneal abscess Cholecystitis with perforation of gallbladder Intra-abdominal abscess (CMS/HCC) (HCC) Peritoneal abscess documented in this encounter Administered Medications Inactive Administered Medications - up to 3 most recent administrations Medication Order MAR Action Action Date Dose Rate Site lidocaine PF (XYLOCAINE) 10 mg/mL (1 %) preservative free injection Code/trauma/sedation medication, Starting on Sat01/04/20 at 1110, Intra-Procedure (IR), Indications: Administration of Local AnesthesiaIndications:Admin istration of Local Anesthesia Given 01/04/2020 11:10 AM CDT 10 mL Abdominal Tissue documented in this encounter Active and Recently Administered Medications Times are shown in CDT. PRN Medication Order 01/02/2020 01/03/2020 01/04/2020 lidocaine PF (XYLOCAINE) 10 mg/mL (1 %) preservative free injection (COMPLETED) Code/trauma/sedation medication, Starting on 01/04/20 at 1110, Intra-Procedure (IR), Indications: Administration of Local Anesthesia 1110 (Given - Provid er: Lui Malik MD) documented in this encounter Orders Medications Ordered That Bimal ht Not Have Been Administered Count Last Ordered Date First Ordered Date lidocaine PF (XYLOCAINE) 10 mg/mL (1 %) preservative free injection 1 01/04/2020 documented in this encounter Additional Health Concerns Infection Onset Date Last Indicated Resolved Time MDR gram neg/ESBL Comment:06/16/2021 IP Review - Pt with scrotal abscess, but is not actively draining (last documented draining on 06/14). Pt remains intubated so requires trach aspirate for isolation discontinuation. Provider notified. Amanda Walker RN 12/19/2019 12/19/2019 documented as of this encounter Care Teams Retail Analyst Relationship Specialty Start Date End Date Jean-Claude Crawford MD [address] [place] [address] PCP - General Family Medicine 08/18/19 04/11/20 documented as of this encounter
--- OUTSIDE RECORDS SUMMARY | 2024-04-08 10:39 | XMS_ITS | Encounter Summary ---
Author Organization [facility] Healthcare Address [address] [place] [address] Care Team Providers Care Lacrosse Player Name Role Phone Jean-Claude Crawford MD Primary Care Provider Encounter Details Date Type Department Care Team (Late st Contact Info) Description 01/14/2020 Telephone 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 Gender Identity Not on file Sexual Orientation Not on file documented as of this encounter Miscellaneous Notes * Telephone Encounter - Taryn Herrera RN - 01/14/2020 3:04 PM CDT Preprocedure Phone Call Procedure Time Verified: Yes Arrival Time Verified: Yes Procedure Location Verified: Yes Medical History Reviewed: Yes NPO Status Reinforced: No Ride and Caregiver Arranged: Yes Ride Caregiver [...] documented as of this encounter Care Teams Lacrosse Player Relationship Specialty Start Date End Date Jean-Claude Crawford MD [address] [place] [id number] PCP - General Family Medicine 08/18/19 04/11/20 documented as of this encounter
--- OUTSIDE RECORDS SUMMARY | 2024-04-08 10:39 | XMS_ITS | Encounter Summary ---
Author Organization [facility] Address [address] [place] [address] Phone Care Team Providers Care Business Services Analyst Name Role Phone Jean-Claude Crawford MD Primary Care Provider Reason for Referral * Diagnostic Imaging (Routine) - Closed Specialty Diagnoses / Procedures Referred By Lei strong Referred To Contact Radiology Diagnoses Cholecystitis with perforation of gallbladder Procedures IR Inject Abscess Catheter Consult to Interventional Radiology Stephany Chavez PA Phone: tel: fax: [facility] [address] [place] [address] Referral ID Status Reason Start Date Expiration Date Visits Re quested Visits Authorized [id number] Closed 12/21/2019 01/19/2021 1 1 Encounter Details Date Type Department Care Team (Late st Contact Info) Description 12/21/2019 Orders Only [facility] Surgery [address] [facility] 8th [place] [address] [place] [address] Stephany Chavez PA [address] [facility] [id number] [place] [address] Cholecystitis with perforation of gallbladder (Primary Dx) Social History Tobacco Use Types Packs/Day Years Used Date Smoking Tobacco: Every Day Cigarettes Smokeless Tobacco: Never Alcohol Use Standard Drinks/Week Comments Yes 0 (1 standard drink = 0.6 oz pur e alcohol) limited Sex and Gender Information Value Date Recorded Sex Assigned at Not on file 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 Dictated by: Breanna Malik M.D. The radiology [...] only TECHNIQUE: ??Prior to beginning the procedure, [place] Protocol was used to confirm the patient's identity and planned procedure. Fluoroscopy time has been recorded in the electronic medical record. Maximum sterile barriers including cap, mask, hand hygiene, sterile gloves, sterile gown, large sterile drape and 2% chlorhexidine for cutaneous antisepsis were used. After obtaining a powder mixer image, the catheter was injected with dilute contrast and multiple diagnostic fluoroscopic spot images were obtained. The skin overlying the collection was sterilely prepped, draped and infiltrated with 1% buffered lidocaine. The catheter was then exchanged over a Bentson guidewire for a new 10-[place] multipurpose drainage catheter. ??Limited contrast injection confirmed [...] only TECHNIQUE: Prior to beginning the procedure, [place] Protocol was used to confirm the patient's identity and planned procedure. Fluoroscopy time has been recorded in the electronic medical record. Maximum sterile barriers including cap, mask, hand hygiene, sterile gloves, sterile gown, large sterile drape and 2% chlorhexidine for cutaneous antisepsis were used. After obtaining a powder mixer image, the catheter was injected with dilute contrast and multiple diagnostic fluoroscopic spot images were obtained. The skin overlying the collection was sterilely prepped, draped and infiltrated with 1% buffered lidocaine. The catheter was then exchanged over a Bentson guidewire for a new 10-Tu[place]uan multipurpose drainage catheter. Limited contrast injection confirmed [...] questions arise, please contact us by calling [phone]. Dictated by: Breanna Malik M.D. The radiology attending physician has personally reviewed this study, and had reviewed and/or edited this written report and agrees with it. Electronically signed by: Roberto Madrid M.D. us Stephany SANDOVAL IMG IR PROCEDURES Final R esult documented in this encounter Visit Diagnoses Diagnosis Cholecystitis with perforation of gallbladder- Primary Intra-abdominal abscess (CMS/HCC) (HCC)- Primary Peritoneal abscess Cholecystitis with perforation of gallbladder documented in this encounter Additional Health Concerns Infection Onset Date Last Indicated Resolved Time MDR gram neg/ESBL Comment:06/16/2021 IP Review - Pt with scrotal abscess, but is not actively draining (last documented draining on 06/14). Pt remains intubated so requires trach aspirate for isolation discontinuation. Provider notified. Amanda Walker RN 12/19/2019 12/19/2019 documented as of this encounter Care Teams Business Services Analyst Relationship Specialty Start Date End Date Jean-Claude Crawford MD [address] [facility] [address] [place] [address] PCP - General Family Medicine 08/18/19 04/11/20 documented as of this encounter
--- OUTSIDE RECORDS SUMMARY | 2024-04-08 10:39 | XMS_ITS | Encounter Summary ---
Author Organization [facility] Address [address] [facility] [address] [place] [address] Care Team Providers Care Warrant Clerk Name Role Phone Jean-Claude Crawford MD Primary Care Provider Encounter Details Date Type Department Care Team (Late st Contact Info) Description 11/16/2019 Orders Only [facility] Cardiology [address] [facility] [address] [place] [id number] Heron Martinez MD [facility] [place] [id number] Social History Tobacco Use Types Packs/Day Years Used Date Smoking Tobacco: Every Day Cigarettes Smokeless Tobacco: Never Alcohol Use Standard Drinks/Week Comments Yes 0 (1 standard drink = 0.6 oz pur e alcohol) limited Sex and Gender Information Value Date Recorded Sex Assigned at Not on file 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 Gender Identity Not on file Sexual Orientation Not on file documented as of this encounter Plan of Treatment Not on file documented as of this encounter Procedures Procedure Name Priority Date/Time Associated Diagnosis Comments CARDIOLOGY DOCUMENT SCAN Routine 11/16/2019 documented in this encounter Results * SCAN - CARDIOLOGY (11/16/2019) Anatomical Region Laterality Modality Other us Heron Martinez MD CV CARDIAC SERVICES [facility] Final Result documented in this encounter Visit Diagnoses Not on filedocumented in this encounter Care Teams Warrant Clerk Relationship Specialty Start Date End Date Jean-Claude Crawford MD [address] [facility] [address] [facility] [address] [place] [address] PCP - General Family Medicine 08/18/19 04/11/20 documented as of this encounter
--- OUTSIDE RECORDS SUMMARY | 2024-04-08 10:39 | XMS_ITS | Encounter Summary ---
Author Organization [facility] Healthcare Address [address] [place] [address] Care Team Providers Care Furniture Assembly Supervisor Name Role Phone Jean-Claude Crawford MD Primary Care Provider Encounter Details Date Type Department Care Team (Late st Contact Info) Description 12/30/2019 Telephone [facility] Radiology 1 [place] [address] Taryn Herrera RN Social History Tobacco Use Types Packs/Day Years Used Date Smoking Tobacco: Every Day Cigarettes Smokeless Tobacco: Never Alcohol Use Standard Drinks/Week Comments Yes 0 (1 standard drink = 0.6 oz pur e alcohol) limited Sex and Gender Information Value Date Recorded Sex Assigned at Not on file 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 Gender Identity Not on file Sexual Orientation Not on file documented as of this encounter Miscellaneous Notes * Telephone Encounter - Taryn Herrera RN - 12/30/2019 5:13 PM CDT Preprocedure Phone Call Procedure Time Verified: Yes Arrival Time Verified: Yes Procedure Location Verified: Yes Medical History Reviewed: Yes NPO Status Reinforced: Yes Ride and Caregiver Arranged: Yes Ride Caregiver [...] documented as of this encounter Care Teams Furniture Assembly Supervisor Relationship Specialty Start Date End Date Jean-Claude Crawford MD [address] [place] [id number] PCP - General Family Medicine 08/18/19 04/11/20 documented as of this encounter
--- OUTSIDE RECORDS SUMMARY | 2024-04-08 10:39 | XMS_ITS | Encounter Summary ---
Author Organization [facility] Address [address] [facility] [address] [place] [address] Care Team Providers Care Production Control Planner Name Role Phone Jean-Claude Crawford MD Primary Care Provider Encounter Details Date Type Department Care Team (Late st Contact Info) Description 11/15/2019 Orders Only [facility] Cardiology [address] [place] [address] Jelena Garzon MD [address] [place] [address] Social History Tobacco Use Types Packs/Day Years Used Date Smoking Tobacco: Every Day Cigarettes Smokeless Tobacco: Never Alcohol Use Standard Drinks/Week Comments Yes 0 (1 standard drink = 0.6 oz pur e alcohol) limited Sex and Gender Information Value Date Recorded Sex Assigned at Not on file 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 Gender Identity Not on file Sexual Orientation Not on file documented as of this encounter Plan of Treatment Not on file documented as of this encounter Procedures Procedure Name Priority Date/Time Associated Diagnosis Comments CARDIOLOGY DOCUMENT SCAN Routine 11/15/2019 documented in this encounter Results * SCAN - CARDIOLOGY (11/15/2019) Anatomical Region Laterality Modality Other Jelena Garzon MD CV CARDIAC SERVICES PROCEDU RES Final Result documented in this encounter Visit Diagnoses Not on filedocumented in this encounter Care Teams Production Control Planner Relationship Specialty Start Date End Date Jean-Claude Crawford MD [address] [facility] [address] [facility] [address] [place] [phone] PCP - General Family Medicine 08/18/19 04/11/20 documented as of this encounter
--- OUTSIDE RECORDS SUMMARY | 2024-04-08 10:39 | XMS_ITS | Encounter Summary ---
Author Organization [facility] Address [address] [place] [address] Phone Care Team Providers Care Improvement Analyst Name Role Phone Jean-Claude Crawford MD Primary Care Provider Encounter Details Date Type Department Care Team (Late st Contact Info) Description 02/20/2020 7:05 AM HOT POND OPERATOR Ancillary Procedure [facility] IP [address] [facility] [address] [place] [address] Social History Tobacco Use Types Packs/Day Years Used Date Smoking Tobacco: Every Day Cigarettes Smokeless Tobacco: Never Alcohol Use Standard Drinks/Week Comments Yes 0 (1 standard drink = 0.6 oz pur e alcohol) limited Sex and Gender Information Value Date Recorded Sex Assigned at Not on file Legal Sex Male 9:10 PM HOT POND OPERATOR Gender Identity Not on file Sexual Orientation Not on file documented as of this encounter Plan of Treatment Not on file documented as of this encounter Procedures Procedure Name Priority Date/Time Associated Diagnosis Comments US VEIN DUPLEX LOWER EXTREMITY BILATERAL COMPLETE ED 02/20/2020 7:34 AM HOT POND OPERATOR documented in this encounter Results * US Vein Duplex Lower Extremity Bilateral Complete (02/20/2020 7:34 AM HOT POND OPERATOR) Anatomical Region Laterality Modality Vascular Bilateral Ultrasound 02/20/2020 7:13 AM HOT POND OPERATOR Narrative 02/21/2020 10:01 PM HOT POND OPERATOR [facility] - Department of Vascular Surgery, Vascular Laboratory [address] [place] [address] Lower Extremity Venous Ultrasound Report Patient Name: JANIA GUAJARDO A : 1950 (69y 9m) Study Date: 02/20/2020 7:13:42 AM Gender: M Tech: Cornell JOSHI Location: ED2-18 Ref.Provider: BRI AYERS Quality: Adequate Order Provider: JAIR JAY Procedures: Vascular Report: Venous Duplex imaging was performed bilaterally in the lower extremities. The common femoral, femoral, popliteal, posterior tibial, peroneal veins were evaluated for patency, spontaneity and phasicity with Doppler, compression and augmentation maneuvers. Great saphenous vein proximal at the junction was evaluated with compression maneuvers. Indications: b/l Le swelling. Findings: Performing Senior Architectural Designer: Laurel Joshi RVT. Right: Duplex scan reveals dilated vein [...] performed. Electronically Signed By: Franklin Curiel MD [facility] 2020-02-21 22:01:24 HOT POND OPERATOR CC: CC: Procedure Note Franklin Curiel MD - 02/21/2020 [facility] - Department of Vascular Surgery,Vascular Laboratory [address] [place] [address] Lower Extremity Venous Ultrasound Report Patient Name: JANIA GUAJARDO APatient ID: [id number] : 1950 (69y 9m)Study Date: 02/20/2020 7:13:42 AM Gender: MAccession #: [id number] Tech: Cornell IVONNENLocation: ED2-18 Ref.Provider: MOY AYERSEQuality: Adequate Order Provider: Richard JAY #: [id number] Procedures: Vascular Report: Venous Duplex imaging was performed bilaterally in the lower extremities.The common femoral, femoral, popliteal, posterior tibial, peroneal veins wereevaluated for patency, spontaneity and phasicity with Doppler, compression and augmentationmaneuvers. Great saphenous vein proximal at the junction was evaluated with compressionmaneuvers. Indications: b/l Le swelling. Findings: Performing Senior Architectural Designer: Laurel Joshi RVT. Right: Duplex scan reveals dilated vein [...] performed. Electronically Signed By: Franklin Curiel MD [facility] 2020-02-21 22:01:24 HOT POND OPERATOR CC: CC: Jair Jay III, MD [facility] PROCEDUR ES Final Result documented in this encounter Visit [...] documented as of this encounter Care Teams Improvement Analyst Relationship Specialty Start Date End Date Jean-Claude Crawford MD [address] [facility] [address] [place] [address] PCP - General Family Medicine 08/18/19 04/11/20 documented as of this encounter
--- OUTSIDE RECORDS SUMMARY | 2024-04-08 10:39 | XMS_ITS | Encounter Summary ---
Author Organization [facility] Healthcare Address [address] [place] [address] Care Team Providers Care Used Car Manager Name Role Phone Jean-Claude Crawford MD Primary Care Provider Encounter Details Date Type Department Care Team (Late st Contact Info) Description 01/26/2020 Telephone [facility] Radiology [address] [place] [address] Addie Preston RN Social History Tobacco Use Types Packs/Day Years Used Date Smoking Tobacco: Every Day Cigarettes Smokeless Tobacco: Never Alcohol Use Standard Drinks/Week Comments Yes 0 (1 standard drink = 0.6 oz pur e alcohol) limited Sex and Gender Information Value Date Recorded Sex Assigned at Not on file 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 Gender Identity Not on file Sexual Orientation Not on file documented as of this encounter Miscellaneous Notes * Telephone Encounter - Addie Preston RN - 01/26/2020 9:55 AM CDT Preprocedure Phone Call Procedure Time Verified: Yes Arrival Time Verified: Yes Procedure Location Verified: Yes Medical History Reviewed: Yes NPO Status Reinforced: No Ride and Caregiver Arranged: Yes Patient Knows to Bring Current Medications: Yes [...] documented as of this encounter Care Teams Used Car Manager Relationship Specialty Start Date End Date Jean-Claude Crawford MD [address] [facility] [address] [place] [address] PCP - General Family Medicine 08/18/19 04/11/20 documented as of this encounter
--- OUTSIDE RECORDS SUMMARY | 2024-04-08 10:39 | XMS_ITS | Encounter Summary ---
Author Organization [facility] Healthcare Address [address] [place] [address] Care Team Providers Care Transferrer Name Role Phone Jean-Claude Crawford MD Primary Care Provider Reason for Referral * (Routine) - Closed Specialty Diagnoses / Procedures Referred By Contac t Referred To Contact Radiology Diagnoses Pain Procedures IR Follow Up Outpatient Epi Glaser MD PhD Phone: tel: fax: [address] [phone] Referral ID Status Reason Start Date Expiration Date Visits Re quested Visits Authorized [id number] Closed 02/23/2020 03/24/2021 1 1 TUTOR Reason for Visit * (Routine) - Closed Specialty Diagnoses / Procedures Referred By Contac t Referred To Contact Radiology Diagnoses Pain Procedures IR Follow Up Outpatient Epi Glaser MD PhD Phone: tel: fax: [address] [phone] Referral ID Status Reason Start Date Expiration Date Visits Re quested Visits Authorized [id number] Closed 02/23/2020 03/24/2021 1 1 Encounter Details Date Type Department Care Team (Late st Contact Info) Description 02/24/2020 9:47 AM GED TUTOR - 02/24/2020 10:22 AM GED TUTOR Hospital Encounter [facility] Radiology [facility] [place] [address] [place] [address] Epi Glaser MD PhD [address] [facility] [address] [place] [address] Katie Gilbert MD [address] [facility] [address] [place] [address] Pain Discharge Disposition: Discharge to home or self care Social History Tobacco Use Types Packs/Day Years Used Date Smoking Tobacco: Every Day Cigarettes Smokeless Tobacco: Never Alcohol Use Standard Drinks/Week Comments Yes 0 (1 standard drink = 0.6 oz pur e alcohol) limited Sex and Gender Information Value Date Recorded Sex Assigned at Not on file Legal Sex Male 9:10 PM GED TUTOR Gender Identity Not on file Sexual Orientation Not on file documented as of this encounter Discharge Diagnoses Diagnosis Infection following a procedure, superficial incisional surgical site, initial encounter - INFECTION FOLLOWING A PROCEDURE, SUPERFICIAL INCISIONAL SURGICAL SITE, INITIAL ENCOUNTER Cutaneous abscess of other sites - CUTANEOUS ABSCESS OF OTHER SITES Other surgical procedures as the cause of abnormal reaction of the patient, or of later complication, without mention of misadventure at the time of the procedure - OTHER SURGICAL PROCEDURES THE CAUSE OF ABNORMAL REACTION OF THE PATIENT, OR OF LATER COMPLICATION Activity, unspecified - ACTIVITY, UNSPECIFIED Unspecified place or not applicable - UNSPECIFIED PLACE OR NOT APPLICABLE Unspecified external cause status - UNSPECIFIED EXTERNAL CAUSE STATUS Other specified postprocedural states - OTHER SPECIFIED POSTPROCEDURAL STATES intermediate manager (current) use of antibiotics - SLOPE RUNNER (CURRENT) USE OF ANTIBIOTICS documented in this encounter Discharge Instructions * Discharge Instructions* Isa Rodriguez MD - 02/24/2020 10:17 AM GED TUTOR Interventional Radiology Outpatient Discharge Instructions/Note Diagnosis:Cellulitis at site of prior cholecystostomy tube site Procedure:Site check Limitations: [] No lifting greater than [...] or sedatives unless approved by your doctor. [x] Prescriptions given for: Ciprofloxacin 500 mg 2x/day for 10 days Procedure Site Care: [] teaching sheet given [] Skin glue was used to close your incision. See teaching sheet. [x] Keep site clean and dry. [x] You may bathe or shower tomorrow. [x] Change the dressing daily and if it becomes wet or dirty. [] Cover entire area with plastic and tape [...] draining. To contact an Interventional Radiologist at [facility] call [phone] Saturday through Saturday from 7:30am-4:30pm. At all other times call [phone] and ask that the Interventional Radiologist be paged. To contact an Interventional Radiologist at [facility] call [phone] Saturday through Saturday from 7:30am-3:30pm. Special instructions: [...] at Please come to: [] 3rd Floor [facility] [] 4th floor [facility] [] [facility] [] [facility] Please call [phone] to schedule a follow up appointment. You need to return in TUTOR documented in this encounter Medications at Time of Discharge cholecalciferol (VITAMIN D-3) 5,000 unit tabletIndications:V itamin D Deficiency Take 1 tablet (5,000 Units total) by mouth every other day acetaminophen (TYLENOL) 325 mg tablet Take 2 tablets (650 mg total) by mouth every 4 (four) hours as needed for pain 30 tablet 0 03/23/20 20 ciprofloxacin (CIPRO) 500 mg tablet Take 1 tablet (500 mg total) by mouth 2 (two) times a day for 10 days 20 tablet 0 03/05/20 20 magnesium oxide (MAG-OX) 400 mg (241.3 mg elemental magnesium) tabletIndications:h ypomagnesemia Take 1 tablet (400 mg total) by mouth daily 30 tablet 0 03/23/20 20 multivit vnouhnwp-wxsu-MH-ca lcium (THERA-M) 9 mg iron-400 mcg tablet [...] Date End Date ciprofloxacin (CIPRO) 500 mg tablet Take 1 tablet (500 mg total) by mouth 2 (two) times a day for 10 days 20 tablet 02/24/2020 03/05/2020 documented in this encounter Discharge Disposition Disposition Code Departure Means Destination Discharge to home or self care documented in this encounter Miscellaneous Notes * Post-Procedure Note - Isa Rodriguez MD - 02/24/2020 10:18 AM CST Radiology Brief Post Procedure Note Attending: Dr. Katie Gilbert Credit Collections Specialist: Dr. Isa Rodriguez Sedation/Anesthesia: None Pre-Op/Pre-Procedure Diagnosis: Cellulitis at site of prior cholecystostomy tube Post-Op/Post-Procedure Diagnosis: Same Procedure Performed: Site check Procedure Findings: Scant purulent drainage, prescribed ciprofloxacin 500 bid for 10 days Complications: None Estimated Blood Loss: None Specimens: None Condition: Stable Full report to follow. TUTOR * Pre-Procedure Note - Isa Rodriguez MD - 02/24/2020 10:00 AM CST Radiology Procedure Plan Indication: Swelling at site of removed drain 69 yo M with perforated cholecystitis s/p cholecystostomy tube, removed on 02/04/2020, patient now having some swelling at drain site. Planned Procedure: Drain site check TUTOR documented in this encounter Plan of Treatment Not on file documented as of this encounter Procedures Procedure Name Priority Date/Time Associated Diagnosis Comments IR FOLLOW UP OUTPATIENT Schedule Routine, Read Routine (OP Routine) 02/24/2020 10:18 AM GED TUTOR Pain documented in this encounter Results * IR Follow Up Outpatient (02/24/2020 10:18 AM GED TUTOR) Anatomical Region Laterality Modality X-Ray Angiograph y 02/24/2020 2:15 PM GED TUTOR Impressions 02/24/2020 3:22 PM GED TUTOR Small subcutaneous abscess with drainage to the skin surface, not large enough for drain placement. ??Patient was prescribed 10 days of ciprofloxacin 500 mg b.i.d. ??The patient was instructed to follow up with us if he started having fevers, nausea abdominal pain or if he was still having drainage after completion of antibiotics. Dictated by: Isa Rodriguez M.D. The radiology attending physician has personally reviewed this study, and had reviewed and/or edited this written report and agrees with it. Electronically signed by: Katie Gilbert M.D. Narrative 02/24/2020 3:22 PM GED TUTOR EXAMINATION: ??INTERVENTIONAL RADIOLOGY FOLLOW-UP VISIT REFERRAL: ??Dr. EPI GLASER has referred this patient for site check. HISTORY: 69-year-old male with perforated cholecystitis status post drainage with percutaneous cholecystostomy tube, tube was removed on 02/04/2020. ??Patient presents with a week of erythema and swelling around the site of the former drain, with purulent drainage since last night. ?? PROCEDURE: Site check. ??There was erythema and induration with minimal fluctuance around the drain site. A small amount of purulence was able to be expressed. ??The patient was denying fever, abdominal pain or nausea. ??The site was manipulated to express all purulence from under the skin. ??A gauze and tape dressing was placed at the site. ?? ATTENDING PHYSICIAN ATTESTATION: ??I saw and evaluated this patient. I agree with the plan of care outlined above. Procedure Note Katie Gilbert MD - 02/24/2020 EXAMINATION: INTERVENTIONAL RADIOLOGY FOLLOW-UP VISIT REFERRAL: Dr. EPI GLASER has referred this patient for site check. HISTORY: 69-year-old male with perforated cholecystitis status post drainage with percutaneous cholecystostomy tube, tube was removed on 02/04/2020. Patient presents with a week of erythema and swelling around the site of the former drain, with purulent drainage since last night. PROCEDURE: Site check. There was erythema and induration with minimal fluctuance around the drain site. A small amount of purulence was able to be expressed. The patient was denying fever, abdominal pain or nausea. The site was manipulated to express all purulence from under the skin. A gauze and tape dressing was placed at the site. ATTENDING PHYSICIAN ATTESTATION: I saw and evaluated this patient. I agree with the plan of care outlined above. IMPRESSION: Small subcutaneous abscess with drainage to the skin surface, not large enough for drain placement. Patient was prescribed 10 days of ciprofloxacin 500 mg b.i.d. The patient was instructed to follow up with us if he started having fevers, nausea abdominal pain or if he was still having drainage after completion of antibiotics. Dictated by: Isa Rodriguez M.D. The radiology attending physician has personally reviewed this study, and had reviewed and/or edited this written report and agrees with it. Electronically signed by: Katie Gilbert M.D. us Epi Glaser MD PhD IMG IR PROCEDURES Final R esult documented in this encounter Visit Diagnoses Diagnosis Pain Generalized pain documented in this encounter Additional Health Concerns Infection Onset Date Last Indicated Resolved Time MDR gram neg/ESBL Comment:06/16/2021 IP Review - Pt with scrotal abscess, but is not actively draining (last documented draining on 06/14). Pt remains intubated so requires trach aspirate for isolation discontinuation. Provider notified. Amanda Walker RN 12/19/2019 12/19/2019 documented as of this encounter Care Teams Transferrer Relationship Specialty Start Date End Date Jean-Claude Crawford MD [address] [facility] [address] [place] [address] PCP - General Family Medicine 08/18/19 04/11/20 documented as of this encounter
--- OUTSIDE RECORDS SUMMARY | 2024-04-08 10:39 | XMS_ITS | Encounter Summary ---
Author Organization [facility] Healthcare Address [address] [place] [address] Care Team Providers Care Carbon Cutter Name Role Phone Jean-Claude Crawford MD Primary Care Provider Encounter Details Date Type Department Care Team (Late st Contact Info) Description 03/11/2020 Telephone [facility] Radiology [address] [place] [address] Guillermina Pitts, RN Social History Tobacco Use Types Packs/Day Years Used Date Smoking Tobacco: Every Day Cigarettes Smokeless Tobacco: Never Alcohol Use Standard Drinks/Week Comments Yes 0 (1 standard drink = 0.6 oz pur e alcohol) limited Sex and Gender Information Value Date Recorded Sex Assigned at Not on file 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 Patient afebrile, no n/v, chills, or abdominal pain. Patient had tube removed 02/04/20. F/U in IR 02/23 with antx ordered 500 mg cipro BID. Patient has completed 10 day course of Cipro asrequested. Patient saw Dr. Gomez as IP and has LM with Dr. Gomez office as well. All information sent to physicians for review and direction. TER SLOTTER FEEDER documented in this encounter Plan of Treatment [...] documented as of this encounter Care Teams Carbon Cutter Relationship Specialty Start Date End Date Jean-Claude Crawford MD [address] [address] PCP - General Family Medicine 08/18/19 04/11/20 documented as of this encounter
--- OUTSIDE RECORDS SUMMARY | 2024-04-08 10:39 | XMS_ITS | Encounter Summary ---
Author Organization [facility] Healthcare Address [address] [place] [address] Care Team Providers Care Construction Site Crossing Guard Name Role Phone Jean-Claude Crawford MD Primary Care Provider Encounter Details Date Type Department Care Team (Late st Contact Info) Description 02/03/2020 Telephone [facility] Radiology [address] [place] [address] Kim Olivares RN Social History Tobacco Use Types Packs/Day Years Used Date Smoking Tobacco: Every Day Cigarettes Smokeless Tobacco: Never Alcohol Use Standard Drinks/Week Comments Yes 0 (1 standard drink = 0.6 oz pur e alcohol) limited Sex and Gender Information Value Date Recorded Sex Assigned at Not on file Legal Sex Male 9:10 PM LATEX FASHIONS DESIGNER Gender Identity Not on file Sexual Orientation Not on file documented as of this encounter Miscellaneous Notes * Telephone Encounter - Kim Olivares RN - 02/09/2020 12:50 PM LATEX FASHIONS DESIGNER . X FASHIONS DESIGNER documented in this encounter Plan of Treatment [...] documented as of this encounter Care Teams Construction Site Crossing Guard Relationship Specialty Start Date End Date Jean-Claude Crawford MD [address] [facility] [address] [place] [address] PCP - General Family Medicine 08/18/19 04/11/20 documented as of this encounter
--- OUTSIDE RECORDS SUMMARY | 2024-04-08 10:39 | XMS_ITS | Encounter Summary ---
Author Organization [facility] Medical Group Address [address] [place] [address] Care Team Providers Care Bushel Girl Name Role Phone Jean-Claude Crawford MD Primary Care Provider Encounter Details Date Type Department Care Team (Late st Contact Info) Description 11/12/[address] 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 Gender Identity Not on file Sexual Orientation Not on file documented as of this encounter Plan of Treatment Not on file documented as of this encounter Procedures Procedure Name Priority Date/Time Associated Diagnosis Comments CARDIOLOGY DOCUMENT SCAN Routine 11/12/2019 documented in this encounter Results * SCAN - CARDIOLOGY (11/12/2019) Anatomical Region Laterality Modality Other Jelena Garzon MD CV CARDIAC SERVICES PROCEDU RES Final Result documented in this encounter Visit Diagnoses Not on filedocumented in this encounter Care Teams Bushel Girl Relationship Specialty Start Date End Date Jean-Claude Crawford MD [address] [facility] [address] [place] [id number] PCP - General Family Medicine 08/18/19 04/11/20 documented as of this encounter
--- OUTSIDE RECORDS SUMMARY | 2024-04-08 10:39 | XMS_ITS | Encounter Summary ---
Author Organization [facility] Healthcare Address [address] [place] [address] Care Team Providers Care Package Crimper Name Role Phone Jean-Claude Crawford MD Primary Care Provider Encounter Details Date Type Department Care Team (Latest Contact Info) Description 12/18/2019 9:00 PM CDT - 12/18/2019 11:59 PM CDT Hospital Encounter [facility] Radiology [facility] [address] [place] [address] Discharge Disposition: Discharge to home or self care Social History Tobacco Use Types Packs/Day Years Used Date Smoking Tobacco: Every Day Cigarettes Smokeless Tobacco: Never Alcohol Use Standard Drinks/Week Comments Yes 0 (1 standard drink = 0.6 oz pur e alcohol) limited Sex and Gender Information Value Date Recorded Sex Assigned at Not on file 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 Gender Identity Not on file Sexual [...] needed for pain 30 tablet 0 02/22/20 aspirin 325 mg enteric coated tablet Take 325 mg by mouth daily 02/22/20 20 carvediloL (COREG) 12.5 mg tablet Take 12.5 mg by mouth 2 (two) times a day with meals 12/21/19 diltiazem (TIAZAC) 360 mg 24 hr capsule Take 360 mg by mouth daily 02/22/20 enoxaparin (LOVENOX) 80 mg/0.8 mL syringe Inject 80 mg under the skin every 12 (twelve) hours 12/28/19 folic acid (FOLVITE) 1 mg tablet Take 1 mg by mouth daily 02/22/20 lansoprazole (PREVACID) 30 mg capsule Take 30 mg by mouth daily 12/21/19 levalbuterol (XOPENEX) 1.25 mg/3 mL nebulizer solution Take 1.25 mg by nebulization as needed for shortness of breath 06/13/19 magnesium oxide (MAG-OX) 400 mg (241.3 mg elemental magnesium) tabletIndications:h ypomagnesemia Take 400 mg by mouth daily 02/22/20 20 metoprolol (LOPRESSOR) 100 mg tablet Take 100 mg by mouth 2 (two) times a day 12/28/19 metoprolol tartrate (LOPRESSOR) 25 mg immediate release tablet Take 1 tablet (25 mg total) by mouth 2 (two) times a day 60 tablet 0 12/28/19 20 metoprolol tartrate (LOPRESSOR) 50 mg immediate release tablet Take 1 tablet (50 mg total) by mouth 2 (two) times a day 60 tablet 0 02/22/20 20 mrdxgjqr-ynknvxy-gx on-lutein tablet Take by mouth 02/21 20 olmesartan-hydrochl orothiazide (BENICAR HCT) 40-12.5 mg per tablet Take 1 tablet by mouth daily 12/21/19 20 omeprazole (PriLOSEC) 20 mg capsule Take 20 mg by mouth daily 02/22/20 20 ondansetron ODT (ZOFRAN-ODT) 4 mg disintegrating tablet Take 1 tablet (4 mg total) by mouth every 4 (four) hours as needed for nausea or vomiting 20 tablet 0 06/16/19 21 polyethylene glycol (MIRALAX) 17 gram packetIndications:c onstipation Take 17 g by mouth daily 06/16/19 21 potassium chloride ER (KLOR-CON) 10 mEq CR tablet Take 40 mEq by mouth 2 (two) times a day 12/28/19 20 pravastatin (PRAVACHOL) 40 mg tablet Take 40 mg by mouth daily 12/21/19 20 predniSONE (DELTASONE) 20 mg tablet Take 20 mg by mouth daily 12/21/19 20 QUEtiapine (SEROquel) 25 mg tablet Take 12.5 [...] Name Priority Date/Time Associated Diagnosis Comments CT BODY OUTSIDE CONSULT Routine 12/18/2019 9:00 PM CDT Diagnosis unknown documented in this encounter Results * CT Body Outside Consult (12/18/2019 9:00 [...] images may or may not represent the galena source data set and thus may contain changes that may lower the accuracy of this second-opinion interpretation. Electronically signed by: Darrel Juarez M.D. Narrative 12/19/2019 9:08 AM CDT EXAMINATION: RADIOLOGY CONSULTATION ON OUTSIDE IMAGING STUDY STUDY INITIALLY PERFORMED: 12/18/2019 at [facility]. TYPE OF STUDY: Multiple CT images of [...] IMAGING STUDY STUDY INITIALLY PERFORMED: 12/18/2019 at [facility]. TYPE OF STUDY: Multiple CT images of [...] images may or may not represent the galena source data set and thus may contain changes that may lower the accuracy of this second-opinion interpretation. Electronically signed by: Darrel Juarez M.D. Hola Weinstein MD IMG CT PROCEDURES Final Re sult documented in this encounter Visit Diagnoses Not on filedocumented in this encounter Care Teams Package Crimper Relationship Specialty Start Date End Date Jaen-Claude Crawford MD [address] [facility] [address] [place] [address] PCP - General Family Medicine 08/18/19 04/11/20 documented as of this encounter
--- OUTSIDE RECORDS SUMMARY | 2024-04-08 10:39 | XMS_ITS | Encounter Summary ---
Author Organization [facility] Healthcare Address [address] [place] [address] Care Team Providers Care Hand Wrapper Operator Name Role Phone Jean-Claude Crawford MD Primary Care Provider Reason for Referral * Diagnostic Imaging (Routine) - Closed Specialty Diagnoses / Procedures Referred By Contac t Referred To Contact Radiology Diagnoses Intra-abdominal abscess (CMS/HCC) (HCC) Procedures IR Cholangiogram Through Existing Catheter Miladys Jamison PA Phone: tel: fax: [address] [phone] Referral ID Status Reason Start Date Expiration Date Visits Re quested Visits Authorized [id number] Closed 01/15/2020 02/13/2021 1 1 Reason for Visit * Diagnostic Imaging (Routine) - Closed Specialty Diagnoses / Procedures Referred By Contac t Referred To Contact Radiology Diagnoses Intra-abdominal abscess (CMS/HCC) (HCC) Procedures IR Cholangiogram Through Existing Catheter Miladys Jamison PA Phone: tel: fax: [address] [phone] Referral ID Status Reason Start Date Expiration Date Visits Re quested Visits Authorized [id number] Closed 01/15/2020 02/13/2021 1 1 Encounter Details Date Type Department Care Team (Late st Contact Info) Description 02/04/2020 8:56 AM CDT - 02/04/2020 11:10 AM CDT Hospital Encounter 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 Gender Identity Not on file Sexual Orientation Not on file documented as of this encounter Last Filed Vital Signs Vital Sign Reading Time Taken Comments Blood Pressure 148/116 02/04/2020 10:57 AM CDT Pulse 79 02/04/2020 10:57 AM CDT Temperature 36.1 ??C (97 ??F) 02/04/2020 10:57 AM CDT Respiratory Rate 16 02/04/2020 10:57 AM CDT Oxygen Saturation 95% 02/04/2020 10:57 AM CDT Inhaled Oxygen Concentration - - Weight - - Height - - Body Mass Index - - documented in this encounter Discharge Diagnoses Diagnosis Encounter for fitting and adjustment of other gastrointestinal appliance and device - ENCOUNTER FOR FITTING AND ADJUSTMENT OF OTHER GASTROINTESTINAL APPLIANCE AND DEVICE Cholecystitis, unspecified - CHOLECYSTITIS, UNSPECIFIED Perforation of gallbladder in cholecystitis - PERFORATION OF GALLBLADDER IN CHOLECYSTITIS documented in this encounter Discharge Instructions * Discharge Instructions* Isa Rodriguez MD - 02/04/2020 11:03 AM CDT Interventional Radiology Outpatient Discharge Instructions/Note Diagnosis:Perforated cholecystitis and abscess s/p drain 12/19/19 Procedure:Drain check and removal Limitations: [] No lifting greater than 5 [...] You may resume your previous diet. Medication: [] Usual medications; check with your regular doctor for any questions. Do not take any new pain medicine, sleeping pills or sedatives unless approved by your doctor. [] Prescriptions given for: Procedure Site Care: [] teaching sheet given [] Skin glue was used to close your incision. See teaching sheet. [x] Keep site clean and dry. [x] You may bathe or shower tomorrow. [] Change the dressing daily [...] draining. To contact an Interventional Radiologist at [facility] call [phone] Saturday through Saturday from 7:30am-4:30pm. At all other times call [phone] and ask that the Interventional Radiologist be paged. To contact an Interventional Radiologist at [facility] call [phone] Saturday through Saturday from 7:30am-3:30pm. Special instructions: [...] at Please come to: [] 3rd Floor [facility] [] 4th floor [facility] [] [facility] [] [facility] Please call [phone] to schedule a follow up appointment. You [...] day 60 tablet 11 0 02/22/20 20 zrvhtvol-gmlcozh-ci on-lutein tablet Take by mouth 02/21 20 [...] Post-Procedure Note - Isa Rodriguez MD - 02/04/2020 10:54 AM CDT Radiology Brief Post Procedure Note Attending: Dr. Clarence Jaimes Foster Care Worker: Dr. Isa Rodriguez Sedation/Anesthesia: None Pre-Op/Pre-Procedure Diagnosis: Perforated cholecystitis with abscess s/p drain 12/19/2019 Post-Op/Post-Procedure Diagnosis: Same Procedure Performed: Drain check and removal Procedure Findings: Same Complications: None Estimated Blood Loss: None Specimens: None Condition: Stable Full report to follow. * Pre-Procedure Note - Zackery Mondragon MD - 02/04/2020 10:19 AM CDT Radiology Procedure Plan Indication: RUQ biliary drainage catheter in place Planned Procedure: Injection through existing catheter, possible removal/exchange if necessary * Pre-Procedure Note - Isa Rodriguez MD - 02/04/2020 10:00 AM CDT Radiology Procedure Plan Indication: 69 year old male with history of perforated cholecystitis and recurrent gallbladder fossa abscess status post drain placementon 12/19/19, presents for routinedrain check. Last exchange was on 01/04/20 for a 10 Fr [place]. Last check on 01/15/2020 showed near resolution of abscess cavity Planned Procedure: Cholecystostomy tube check and possible exchange/removal. documented in this encounter Plan of Treatment Not on file documented as of this encounter Procedures Procedure Name Priority Date/Time Associated Diagnosis Comments IR CHOLANGIOGRAM THROUGH EXISTING CATHETER Schedule Routine, Read Routine (OP Routine) 02/04/2020 10:52 AM CDT Intra-abdominal abscess (CMS/HCC) documented in [...] status post drainage/03/2020, last exchange 12/27/2019 with 10-Zimbabwean cope loop. ??Last check on 01/15/2020 showed [...] was obtained. Prior to beginning the procedure, [place] Protocol was performed to confirm the patient's identity and the planned procedure. ??The fluoroscopy time has been recorded in the electronic medical record. The patient was positioned on the fluoroscopy table and a washer engineer helper image obtained. ??Contrast was injected through the patient's indwelling 10-Zimbabwean cope loop catheter. Multiple fluoroscopic images were [...] status post drainage/03/2020, last exchange 12/27/2019 with 10-Zimbabwean cope loop. Last check on 01/15/2020 showed [...] was obtained. Prior to beginning the procedure, [place] Protocol was performed to confirm the patient's identity and the planned procedure. The fluoroscopy time has been recorded in the electronic medical record. The patient was positioned on the fluoroscopy table and a washer engineer helper image obtained. Contrast was injected through the patient's indwelling 10-Zimbabwean cope loop catheter. Multiple fluoroscopic images were [...] it. Electronically signed by: Clarence Jaimes M.D. Miladys SANDOVAL IMG IR PROCEDURES Final R esult documented in this encounter Visit Diagnoses Diagnosis Intra-abdominal abscess (CMS/HCC) (HCC) Peritoneal abscess documented [...] documented as of this encounter Care Teams Hand Wrapper Operator Relationship Specialty Start Date End Date Jean-Claude Crawford MD [address] [address] PCP - General Family Medicine 08/18/19 04/11/20 documented as of this encounter
--- OUTSIDE RECORDS SUMMARY | 2024-04-08 10:39 | XMS_ITS | Encounter Summary ---
Author Organization [facility] Medical [facility] Address [address] [place] [address] Care Team Providers Care Civil Engineering Professional Name Role Phone Jean-Claude Crawford MD Primary Care Provider Encounter Details Date Type Department Care Team (Late st Contact Info) Description 11/18/[address] 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 Gender Identity Not on file Sexual Orientation Not on file documented as of this encounter Plan of Treatment Not on file documented as of this encounter Procedures Procedure Name Priority Date/Time Associated Diagnosis Comments CARDIOLOGY DOCUMENT SCAN Routine 11/18/2019 documented in this encounter Results * SCAN - CARDIOLOGY (11/18/2019) Anatomical Region Laterality Modality Other Heron Martinez MD CV CARDIAC SERVICES [facility] Final Result documented in this encounter Visit Diagnoses Not on filedocumented in this encounter Care Teams Civil Engineering Professional Relationship Specialty Start Date End Date Jean-Claude Crawford MD [address] [facility] [address] [facility] [address] [place] [address] PCP - General Family Medicine 08/18/19 04/11/20 documented as of this encounter
--- OUTSIDE RECORDS SUMMARY | 2024-04-08 10:40 | XMS_ITS | Encounter Summary ---
Author Organization [facility] Medical [facility] Address [address] [place] [address] Care Team Providers Care Professor Of Family Medicine Name Role Phone Jean-Claude Crawford MD Primary Care Provider Encounter Details Date Type Department Care Team (Late st Contact Info) Description 11/07/2019 Orders Only [facility] Cardiology [address] [facility] [address] [facility] [address] [place] [address] Heron Martinez MD [facility] [place] [phone] Social History Tobacco Use Types Packs/Day Years Used Date Smoking Tobacco: Every Day Cigarettes Smokeless Tobacco: Never Alcohol Use Standard Drinks/Week Comments Yes 0 (1 standard drink = 0.6 oz pur e alcohol) limited Sex and Gender Information Value Date Recorded Sex Assigned at Not on file 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 Gender Identity Not on file Sexual Orientation Not on file documented as of this encounter Plan of Treatment Not on file documented as of this encounter Procedures Procedure Name Priority Date/Time Associated Diagnosis Comments CARDIOLOGY DOCUMENT SCAN Routine 11/07/2019 documented in this encounter Results * SCAN - CARDIOLOGY (11/07/2019) Anatomical Region Laterality Modality Other Heron Martinez MD CV CARDIAC SERVICES [facility] Final Result documented in this encounter Visit Diagnoses Not on filedocumented in this encounter Care Teams Professor Of Family Medicine Relationship Specialty Start Date End Date Jean-Claude Crawford MD [address] [facility] [address] [place] [address] PCP - General Family Medicine 08/18/19 04/11/20 documented as of this encounter
--- OUTSIDE RECORDS SUMMARY | 2024-04-08 10:40 | XMS_ITS | Encounter Summary ---
Author Organization [facility] Medical Group Address [address] [place] [address] Care Team Providers Care System Developer Associate Manager Name Role Phone Jean-Claude Crawford MD Primary Care Provider Encounter Details Date Type Department Care Team (Late st Contact Info) Description 11/01/2019 Orders Only [facility] Medical Group Cardiology [address] [facility] [address] [place] [address] Trey Moore MD [address] [facility] [address] [place] [address] Social History Tobacco Use Types Packs/Day Years Used Date Smoking Tobacco: Every Day Cigarettes Smokeless Tobacco: Never Alcohol Use Standard Drinks/Week Comments Yes 0 (1 standard drink = 0.6 oz pur e alcohol) limited Sex and Gender Information Value Date Recorded Sex Assigned at Not on file 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 Gender Identity Not on file Sexual Orientation Not on file documented as of this encounter Plan of Treatment Not on file documented as of this encounter Procedures Procedure Name Priority Date/Time Associated Diagnosis Comments CARDIOLOGY DOCUMENT SCAN Routine 11/01/2019 documented in this encounter Results * SCAN - CARDIOLOGY (11/01/2019) Anatomical Region Laterality Modality Other Trey Moore MD CV CARDIAC SERVICES PROC EDURES Final Result documented in this encounter Visit Diagnoses Not on filedocumented in this encounter Care Teams System Developer Associate Manager Relationship Specialty Start Date End Date Jean-Claude Crawford MD [address] [facility] [address] [place] [address] PCP - General Family Medicine 08/18/19 04/11/20 documented as of this encounter
--- OUTSIDE RECORDS SUMMARY | 2024-04-08 10:40 | XMS_ITS | Encounter Summary ---
Author Organization [facility] Medical Group Address [address] [place] [address] Care Team Providers Care Christmas Tree Grower Name Role Phone Jean-Claude Crawford MD Primary Care Provider Encounter Details Date Type Department Care Team (Late st Contact Info) Description 10/20/2019 Orders Only [facility] Cardiology [address] [facility] [address] [place] [phone] Eric Mayer MD [address] [place] [phone] Social History Tobacco Use Types Packs/Day Years Used Date Smoking Tobacco: Every Day Cigarettes Smokeless Tobacco: Never Alcohol Use Standard Drinks/Week Comments Yes 0 (1 standard drink = 0.6 oz pur e alcohol) limited Sex and Gender Information Value Date Recorded Sex Assigned at Not on file 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 Gender Identity Not on file Sexual Orientation Not on file documented as of this encounter Plan of Treatment Not on file documented as of this encounter Procedures Procedure Name Priority Date/Time Associated Diagnosis Comments CARDIOLOGY DOCUMENT SCAN Routine 10/20/2019 documented in this encounter Results * SCAN - CARDIOLOGY (10/20/2019) Anatomical Region Laterality Modality Other Eric Mayer MD CV CARDIAC SERVICES PROCEDURES F inal Result documented in this encounter Visit Diagnoses Not on filedocumented in this encounter Care Teams Christmas Tree Grower Relationship Specialty Start Date End Date Jean-Claude Crawford MD [address] [facility] [address] [place] [phone] PCP - General Family Medicine 08/18/19 04/11/20 documented as of this encounter
--- OUTSIDE RECORDS SUMMARY | 2024-04-08 10:40 | XMS_ITS | Encounter Summary ---
Author Organization [facility] Medical [facility] Address [address] [place] [address] Care Team Providers Care Fundraising Officer Name Role Phone Jean-Claude Crawford MD Primary Care Provider Encounter Details Date Type Department Care Team (Late st Contact Info) Description 10/15/2019 Orders Only [facility] Cardiology [address] [facility] [address] [place] [address] Araceli Tom, POULTRY AND FISH BUTCHER [address] [place] [address] Social History Tobacco Use Types Packs/Day Years Used Date Smoking Tobacco: Every Day Cigarettes Smokeless Tobacco: Never Alcohol Use Standard Drinks/Week Comments Yes 0 (1 standard drink = 0.6 oz pur e alcohol) limited Sex and Gender Information Value Date Recorded Sex Assigned at Not on file 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 Gender Identity Not on file Sexual Orientation Not on file documented as of this encounter Plan of Treatment Not on file documented as of this encounter Procedures Procedure Name Priority Date/Time Associated Diagnosis Comments CARDIOLOGY DOCUMENT SCAN Routine 10/15/2019 documented in this encounter Results * SCAN - CARDIOLOGY (10/15/2019) Anatomical Region Laterality Modality Other Araceli Tom NP CV CARDIAC SERVICES PROCEDURES F inal Result documented in this encounter Visit Diagnoses Not on filedocumented in this encounter Care Teams Fundraising Officer Relationship Specialty Start Date End Date Jean-Claude Crawford MD [address] [facility] [address] [place] [address] PCP - General Family Medicine 08/18/19 04/11/20 documented as of this encounter
--- OUTSIDE RECORDS SUMMARY | 2024-04-08 10:40 | XMS_ITS | Encounter Summary ---
Author Organization [facility] Address [address] [place] [address] Care Team Providers Care Linoleum Layer Apprentice Name Role Phone Jean-Claude Crawford MD Primary Care Provider Encounter Details Date Type Department Care Team (Late st Contact Info) Description 11/08/2019 Orders Only [facility] Cardiology [address] [facility] [address] [place] [address] Heron Martinez MD [facility] [place] [phone] Social History Tobacco Use Types Packs/Day Years Used Date Smoking Tobacco: Every Day Cigarettes Smokeless Tobacco: Never Alcohol Use Standard Drinks/Week Comments Yes 0 (1 standard drink = 0.6 oz pur e alcohol) limited Sex and Gender Information Value Date Recorded Sex Assigned at Not on file 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 Gender Identity Not on file Sexual Orientation Not on file documented as of this encounter Plan of Treatment Not on file documented as of this encounter Procedures Procedure Name Priority Date/Time Associated Diagnosis Comments CARDIOLOGY DOCUMENT SCAN Routine 11/08/2019 documented in this encounter Results * SCAN - CARDIOLOGY (11/08/2019) Anatomical Region Laterality Modality Other Heron Martinez MD [facility] CARDIAC SERVICES JON ZHANG Final Result documented in this encounter Visit Diagnoses Not on filedocumented in this encounter Care Teams Linoleum Layer Apprentice Relationship Specialty Start Date End Date Jean-Claude Crawford MD [address] [facility] [address] [facility] [address] [place] [phone] PCP - General Family Medicine 08/18/19 04/11/20 documented as of this encounter
--- OUTSIDE RECORDS SUMMARY | 2024-04-08 10:40 | XMS_ITS | Encounter Summary ---
Author Organization [facility] Address [address] [place] [address] Care Team Providers Care Slider Assembler Name Role Phone Jean-Claude Crawford MD Primary Care Provider Encounter Details Date Type Department Care Team (Late st Contact Info) Description 10/29/2019 Orders Only [facility] Cardiology [address] [facility] [address] [place] [phone] Heron Martinez MD [facility]5 [place] [phone] Social History Tobacco Use Types Packs/Day Years Used Date Smoking Tobacco: Every Day Cigarettes Smokeless Tobacco: Never Alcohol Use Standard Drinks/Week Comments Yes 0 (1 standard drink = 0.6 oz pur e alcohol) limited Sex and Gender Information Value Date Recorded Sex Assigned at Not on file 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 Gender Identity Not on file Sexual Orientation Not on file documented as of this encounter Plan of Treatment Not on file documented as of this encounter Procedures Procedure Name Priority Date/Time Associated Diagnosis Comments CARDIOLOGY DOCUMENT SCAN Routine 10/29/2019 documented in this encounter Results * SCAN - CARDIOLOGY (10/29/2019) Anatomical Region Laterality Modality Other Heron Martinez MD CV CARDIAC SERVICES [facility] Final Result documented in this encounter Visit Diagnoses Not on filedocumented in this encounter Care Teams Slider Assembler Relationship Specialty Start Date End Date Jean-Claude Crawford MD [address] [facility] [address] [facility] 120 [place] [address] PCP - General Family Medicine 08/18/19 04/11/20 documented as of this encounter
--- OUTSIDE RECORDS SUMMARY | 2024-04-08 10:40 | XMS_ITS | Encounter Summary ---
Author Organization [facility] Address [address] [facility] [address] [place] [address] Care Team Providers Care Base Loader Name Role Phone Jean-Claude Crawford MD Primary Care Provider Encounter Details Date Type Department Care Team (Late st Contact Info) Description 10/31/2019 Orders Only [facility] Cardiology [address] [facility] [address] [place] [phone] Trey Moore MD [address] [facility] [address] [place] [id number] Social History Tobacco Use Types Packs/Day Years Used Date Smoking Tobacco: Every Day Cigarettes Smokeless Tobacco: Never Alcohol Use Standard Drinks/Week Comments Yes 0 (1 standard drink = 0.6 oz pur e alcohol) limited Sex and Gender Information Value Date Recorded Sex Assigned at Not on file 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 Gender Identity Not on file Sexual Orientation Not on file documented as of this encounter Plan of Treatment Not on file documented as of this encounter Procedures Procedure Name Priority Date/Time Associated Diagnosis Comments CARDIOLOGY DOCUMENT SCAN Routine 10/31/2019 documented in this encounter Results * SCAN - CARDIOLOGY (10/31/2019) Anatomical Region Laterality Modality Other Trey Moore MD CV CARDIAC SERVICES PROC EDURES Final Result documented in this encounter Visit Diagnoses Not on filedocumented in this encounter Care Teams Base Loader Relationship Specialty Start Date End Date Jean-Claude Crawford MD [address] [facility] [address] [facility] 120 [place] [address] PCP - General Family Medicine 08/18/19 04/11/20 documented as of this encounter
--- OUTSIDE RECORDS SUMMARY | 2024-04-08 10:40 | XMS_ITS | Encounter Summary ---
Author Organization [facility] Address [address] [facility] [address] [place] [address] Care Team Providers Care Precision Lens Polisher Name Role Phone Jean-Claude Crawford MD Primary Care Provider Encounter Details Date Type Department Care Team (Late st Contact Info) Description 10/27/2019 Orders Only [facility] Cardiology [address] [facility] [address] [place] [phone] Heron Martinez MD [facility] [place] [phone] Social History Tobacco Use Types Packs/Day Years Used Date Smoking Tobacco: Every Day Cigarettes Smokeless Tobacco: Never Alcohol Use Standard Drinks/Week Comments Yes 0 (1 standard drink = 0.6 oz pur e alcohol) limited Sex and Gender Information Value Date Recorded Sex Assigned at Not on file 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 Gender Identity Not on file Sexual Orientation Not on file documented as of this encounter Plan of Treatment Not on file documented as of this encounter Procedures Procedure Name Priority Date/Time Associated Diagnosis Comments CARDIOLOGY DOCUMENT SCAN Routine 10/27/2019 documented in this encounter Results * SCAN - CARDIOLOGY (10/27/2019) Anatomical Region Laterality Modality Other Heron Martinez MD CV CARDIAC SERVICES [facility] Final Result documented in this encounter Visit Diagnoses Not on filedocumented in this encounter Care Teams Precision Lens Polisher Relationship Specialty Start Date End Date Jean-Claude Crawford MD [address] [facility] [address] [facility] 120 [place] [address] PCP - General Family Medicine 08/18/19 04/11/20 documented as of this encounter
--- OUTSIDE RECORDS SUMMARY | 2024-04-08 10:40 | XMS_ITS | Encounter Summary ---
Author Organization [facility] Address [address] [facility] [address] [place] [address] Care Team Providers Care Process Plant Operator Name Role Phone Jean-Claude Crawford MD Primary Care Provider Encounter Details Date Type Department Care Team (Late st Contact Info) Description 11/08/2019 Orders Only [facility] Cardiology [address] [facility] [address] [place] [phone] Heron Martinez MD [facility] [place] [phone] Social History Tobacco Use Types Packs/Day Years Used Date Smoking Tobacco: Every Day Cigarettes Smokeless Tobacco: Never Alcohol Use Standard Drinks/Week Comments Yes 0 (1 standard drink = 0.6 oz pur e alcohol) limited Sex and Gender Information Value Date Recorded Sex Assigned at Not on file 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 Gender Identity Not on file Sexual Orientation Not on file documented as of this encounter Plan of Treatment Not on file documented as of this encounter Procedures Procedure Name Priority Date/Time Associated Diagnosis Comments CARDIOLOGY DOCUMENT SCAN Routine 11/08/2019 documented in this encounter Results * SCAN - CARDIOLOGY (11/08/2019) Anatomical Region Laterality Modality Other Heron Martinez MD CV CARDIAC SERVICES [facility] Final Result documented in this encounter Visit Diagnoses Not on filedocumented in this encounter Care Teams Process Plant Operator Relationship Specialty Start Date End Date Jean-Claude Crawford MD [address] [facility] [address] [facility] 120 [place] [address] PCP - General Family Medicine 08/18/19 04/11/20 documented as of this encounter
--- OUTSIDE RECORDS SUMMARY | 2024-04-08 10:40 | XMS_ITS | Encounter Summary ---
Author Organization [facility] Address [address] [facility] [address] [place] [address] Care Team Providers Care Hides Soaker Name Role Phone Jean-Claude Crawford MD Primary Care Provider Encounter Details Date Type Department Care Team (Late st Contact Info) Description 11/04/[address] 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 Gender Identity Not on file Sexual Orientation Not on file documented as of this encounter Plan of Treatment Not on file documented as of this encounter Procedures Procedure Name Priority Date/Time Associated Diagnosis Comments CARDIOLOGY DOCUMENT SCAN Routine 11/04/2019 documented in this encounter Results * SCAN - CARDIOLOGY (11/04/2019) Anatomical Region Laterality Modality Other Araceli Tom NP CV CARDIAC SERVICES PROCEDURES F inal Result documented in this encounter Visit Diagnoses Not on filedocumented in this encounter Care Teams Hides Soaker Relationship Specialty Start Date End Date Jean-Claude Crawford MD [address] [facility] [address] [facility] 120 [place] [phone] PCP - General Family Medicine 08/18/19 04/11/20 documented as of this encounter
--- OUTSIDE RECORDS SUMMARY | 2024-04-08 10:40 | XMS_ITS | Encounter Summary ---
Author Organization [facility] Address [address] [place] [address] Care Team Providers Care Global Product Manager Name Role Phone Jean-Claude Crawford MD Primary Care Provider Encounter Details Date Type Department Care Team (Late st Contact Info) Description 10/16/[address] 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 Gender Identity Not on file Sexual Orientation Not on file documented as of this encounter Plan of Treatment Not on file documented as of this encounter Procedures Procedure Name Priority Date/Time Associated Diagnosis Comments CARDIOLOGY DOCUMENT SCAN Routine 10/16/2019 documented in this encounter Results * SCAN - CARDIOLOGY (10/16/2019) Anatomical Region Laterality Modality Other Araceli Tom NP CV CARDIAC SERVICES PROCEDURES F inal Result documented in this encounter Visit Diagnoses Not on filedocumented in this encounter Care Teams Global Product Manager Relationship Specialty Start Date End Date Jean-Claude Crawford MD [address] [facility] [address] [facility] 120 [place] [phone] PCP - General Family Medicine 08/18/19 04/11/20 documented as of this encounter
--- OUTSIDE RECORDS SUMMARY | 2024-04-08 10:40 | XMS_ITS | Encounter Summary ---
Author Organization [facility] Address [address] [facility] [address] [place] [address] Care Team Providers Care Medical Reimbursement Specialist Name Role Phone Jean-Claude Crawford MD Primary Care Provider Encounter Details Date Type Department Care Team (Late st Contact Info) Description 10/28/2019 Orders Only [facility] Cardiology [address] [facility] [address] [place] [address] Heron Martinez MD [facility]5 [place] [phone] Social History Tobacco Use Types Packs/Day Years Used Date Smoking Tobacco: Every Day Cigarettes Smokeless Tobacco: Never Alcohol Use Standard Drinks/Week Comments Yes 0 (1 standard drink = 0.6 oz pur e alcohol) limited Sex and Gender Information Value Date Recorded Sex Assigned at Not on file 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 Gender Identity Not on file Sexual Orientation Not on file documented as of this encounter Plan of Treatment Not on file documented as of this encounter Procedures Procedure Name Priority Date/Time Associated Diagnosis Comments CARDIOLOGY DOCUMENT SCAN Routine 10/28/2019 documented in this encounter Results * SCAN - CARDIOLOGY (10/28/2019) Anatomical Region Laterality Modality Other Heron Martinez MD CV CARDIAC SERVICES [facility] Final Result documented in this encounter Visit Diagnoses Not on filedocumented in this encounter Care Teams Medical Reimbursement Specialist Relationship Specialty Start Date End Date Jean-Claude Crawford MD [address] [facility] [address] [facility] 120 [place] [address] PCP - General Family Medicine 08/18/19 04/11/20 documented as of this encounter
--- OUTSIDE RECORDS SUMMARY | 2024-04-08 10:40 | XMS_ITS | Encounter Summary ---
Author Organization [facility] Address [address] [facility] [address] [place] [address] Care Team Providers Care Hand Picker Name Role Phone Jean-Claude Crawford MD Primary Care Provider Encounter Details Date Type Department Care Team (Late st Contact Info) Description 11/06/2019 Orders Only [facility] Cardiology [address] [place] [address] Araceli Tom, GARIMA [address] [place] [address] Social History Tobacco Use Types Packs/Day Years Used Date Smoking Tobacco: Every Day Cigarettes Smokeless Tobacco: Never Alcohol Use Standard Drinks/Week Comments Yes 0 (1 standard drink = 0.6 oz pur e alcohol) limited Sex and Gender Information Value Date Recorded Sex Assigned at Not on file 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 Gender Identity Not on file Sexual Orientation Not on file documented as of this encounter Plan of Treatment Not on file documented as of this encounter Procedures Procedure Name Priority Date/Time Associated Diagnosis Comments CARDIOLOGY DOCUMENT SCAN Routine 11/06/2019 documented in this encounter Results * SCAN - CARDIOLOGY (11/06/2019) Anatomical Region Laterality Modality Other Araceli Tom NP CV CARDIAC SERVICES PROCEDURES F inal Result documented in this encounter Visit Diagnoses Not on filedocumented in this encounter Care Teams Hand Picker Relationship Specialty Start Date End Date Jean-Claude Crawford MD [address] [facility] [address] [facility] 120 [place] [phone] PCP - General Family Medicine 08/18/19 04/11/20 documented as of this encounter
--- OUTSIDE RECORDS SUMMARY | 2024-04-08 10:40 | XMS_ITS | Encounter Summary ---
Author Organization [facility] Address [address] [facility] [address] [place] [address] Care Team Providers Care Tube Winder Hand Name Role Phone Jean-Claude Crawford MD Primary Care Provider Encounter Details Date Type Department Care Team (Late st Contact Info) Description 10/30/2019 Orders Only [facility] Cardiology [address] [facility] [address] [place] [address] Heron Martinez MD [facility] [place] [phone] Social History Tobacco Use Types Packs/Day Years Used Date Smoking Tobacco: Every Day Cigarettes Smokeless Tobacco: Never Alcohol Use Standard Drinks/Week Comments Yes 0 (1 standard drink = 0.6 oz pur e alcohol) limited Sex and Gender Information Value Date Recorded Sex Assigned at Not on file 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 Gender Identity Not on file Sexual Orientation Not on file documented as of this encounter Plan of Treatment Not on file documented as of this encounter Procedures Procedure Name Priority Date/Time Associated Diagnosis Comments CARDIOLOGY DOCUMENT SCAN Routine 10/30/2019 documented in this encounter Results * SCAN - CARDIOLOGY (10/30/2019) Anatomical Region Laterality Modality Other Heron Martinez MD CV CARDIAC SERVICES [facility] Final Result documented in this encounter Visit Diagnoses Not on filedocumented in this encounter Care Teams Tube Winder Hand Relationship Specialty Start Date End Date Jean-Claude Crawford MD [address] [facility] [address] [facility] 120 [place] [address] PCP - General Family Medicine 08/18/19 04/11/20 documented as of this encounter
--- OUTSIDE RECORDS SUMMARY | 2024-04-08 10:40 | XMS_ITS | Encounter Summary ---
Author Organization [facility] Address [address] [facility] [address] [place] [address] Care Team Providers Care Bread Slicer Machine Name Role Phone Jean-Claude Crawford MD Primary Care Provider Encounter Details Date Type Department Care Team (Late st Contact Info) Description 10/20/2019 Orders Only [facility] Cardiology [address] [place] [address] Jelena Garzon MD [address] [place] [address] Social History Tobacco Use Types Packs/Day Years Used Date Smoking Tobacco: Every Day Cigarettes Smokeless Tobacco: Never Alcohol Use Standard Drinks/Week Comments Yes 0 (1 standard drink = 0.6 oz pur e alcohol) limited Sex and Gender Information Value Date Recorded Sex Assigned at Not on file 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 Gender Identity Not on file Sexual Orientation Not on file documented as of this encounter Plan of Treatment Not on file documented as of this encounter Procedures Procedure Name Priority Date/Time Associated Diagnosis Comments CARDIOLOGY DOCUMENT SCAN Routine 10/20/2019 documented in this encounter Results * SCAN - CARDIOLOGY (10/20/2019) Anatomical Region Laterality Modality Other Jelena Garzon MD CV CARDIAC SERVICES PROCEDU RES Final Result documented in this encounter Visit Diagnoses Not on filedocumented in this encounter Care Teams Bread Slicer Machine Relationship Specialty Start Date End Date Jean-Claude Crawford MD [address] [facility] [address] [facility] 120 [place] [phone] PCP - General Family Medicine 08/18/19 04/11/20 documented as of this encounter
--- OUTSIDE RECORDS SUMMARY | 2024-04-08 10:40 | XMS_ITS | Encounter Summary ---
Author Organization [facility] Address [address] [facility] [address] [place] [address] Care Team Providers Care Keyboarding Teacher Name Role Phone Jean-Claude Crawford MD Primary Care Provider Encounter Details Date Type Department Care Team (Late st Contact Info) Description 10/15/2019 Orders Only [facility] Cardiology [address] [place] [address] Araceli Tom, GARIMA [address] [place] [address] Social History Tobacco Use Types Packs/Day Years Used Date Smoking Tobacco: Every Day Cigarettes Smokeless Tobacco: Never Alcohol Use Standard Drinks/Week Comments Yes 0 (1 standard drink = 0.6 oz pur e alcohol) limited Sex and Gender Information Value Date Recorded Sex Assigned at Not on file 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
--- OUTSIDE RECORDS SUMMARY | 2024-04-08 10:40 | XMS_ITS | Encounter Summary ---
Author Organization [facility] Address [address] [facility] [address] [place] [address] Care Team Providers Care Keyboard Operator Name Role Phone Jean-Claude Crawford MD Primary Care Provider Encounter Details Date Type Department Care Team (Late st Contact Info) Description 11/05/2019 Orders Only [facility] Cardiology [address] [place] [address] Araceli Tom, GARIMA [address] [place] [address] Social History Tobacco Use Types Packs/Day Years Used Date Smoking Tobacco: Every Day Cigarettes Smokeless Tobacco: Never Alcohol Use Standard Drinks/Week Comments Yes 0 (1 standard drink = 0.6 oz pur e alcohol) limited Sex and Gender Information Value Date Recorded Sex Assigned at Not on file 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 Gender Identity Not on file Sexual Orientation Not on file documented as of this encounter Plan of Treatment Not on file documented as of this encounter Procedures Procedure Name Priority Date/Time Associated Diagnosis Comments CARDIOLOGY DOCUMENT SCAN Routine 11/05/2019 documented in this encounter Results * SCAN - CARDIOLOGY (11/05/2019) Anatomical Region Laterality Modality Other Araceli Tom NP CV CARDIAC SERVICES PROCEDURES F inal Result documented in this encounter Visit Diagnoses Not on filedocumented in this encounter Care Teams Keyboard Operator Relationship Specialty Start Date End Date Jean-Claude Crawford MD [address] [facility] [address] [facility] 120 [place] [phone] PCP - General Family Medicine 08/18/19 04/11/20 documented as of this encounter
--- OUTSIDE RECORDS SUMMARY | 2024-04-08 10:40 | XMS_ITS | Encounter Summary ---
Author Organization [facility] Address [address] [place] [address] Care Team Providers Care Adding Machine Servicer Name Role Phone Jean-Claude Crawford MD Primary Care Provider Encounter Details Date Type Department Care Team (Late st Contact Info) Description 10/18/2019 Orders Only [facility] Cardiology [address] [place] [address] Donavan Monahan MD [address] [place] [address] Social History Tobacco Use Types Packs/Day Years Used Date Smoking Tobacco: Every Day Cigarettes Smokeless Tobacco: Never Alcohol Use Standard Drinks/Week Comments Yes 0 (1 standard drink = 0.6 oz pur e alcohol) limited Sex and Gender Information Value Date Recorded Sex Assigned at Not on file 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 Gender Identity Not on file Sexual Orientation Not on file documented as of this encounter Plan of Treatment Not on file documented as of this encounter Procedures Procedure Name Priority Date/Time Associated Diagnosis Comments CARDIOLOGY DOCUMENT SCAN Routine 10/18/2019 documented in this encounter Results * SCAN - CARDIOLOGY (10/18/2019) Anatomical Region Laterality Modality Other Donavan Monahan MD [facility] C[facility]AC SERVICES PROC [facility] Final Result documented in this encounter Visit Diagnoses Not on filedocumented in this encounter Care Teams Adding Machine Servicer Relationship Specialty Start Date End Date Jean-Claude Crawford MD [address] [facility] [address] [place] [address] PCP - General Family Medicine 08/18/19 04/11/20 documented as of this encounter
--- OUTSIDE RECORDS SUMMARY | 2024-04-08 10:41 | XMS_ITS | Encounter Summary ---
Author Organization [facility] Address [address] [place] [address] Care Team Providers Care Bunk Assembler Name Role Phone No, Physician Primary Care Provider [phone] Encounter Details Date Type Department Care Team (Late st Contact Info) Description 08/05/2019 Orders Only [facility] Cardiology [address] [place] [address] Heron Martinez MD [facility] [place] [id number] Social History Tobacco Use Types Packs/Day Years Used Date Smoking Tobacco: Never Assessed Sex and Gender Information Value Date Recorded Sex Assigned at Not on file 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 Gender Identity Not on file Sexual Orientation Not on file documented as of this encounter Plan of Treatment Not on file documented as of this encounter Procedures Procedure Name Priority Date/Time Associated Diagnosis Comments CARDIOLOGY DOCUMENT SCAN Routine 08/04/2019 documented in this encounter Results * SCAN - CARDIOLOGY (08/04/2019) Anatomical Region Laterality Modality Other Heron Martinez MD CV CARDIAC SERVICES JON ZHANG Final Result documented in this encounter Visit Diagnoses Not on filedocumented in this encounter Care Teams Bunk Assembler Relationship Specialty Start Date End Date No, Physician PCP - General 07/26/19 08/17/19 documented as of this encounter
--- OUTSIDE RECORDS SUMMARY | 2024-04-08 10:41 | XMS_ITS | Encounter Summary ---
Author Organization [facility] Address [address] [place] [address] Care Team Providers Care Repairer Welding Equipment Name Role Phone Jean-Claude Crawford MD Primary Care Provider Reason for Visit * Reason Comments Hospital Follow Up a-fib Encounter Details Date Type Department Care Team (Late st Contact Info) Description 08/18/2019 1:00 PM CDT Telemedicine [facility] Cardiology [address] [place] [address] Jaci Olson NP [address] [place] [address] Atrial fibrillation, unspecified type (CMS/HCC) (Primary Dx); LV dysfunction; Alcohol abuse; Guaiac positive stools Social History Tobacco Use Types Packs/Day Years Used Date Smoking Tobacco: Every Day Cigarettes Smokeless Tobacco: Never Alcohol Use Standard Drinks/Week Comments Yes 0 (1 standard drink = 0.6 oz pur e alcohol) limited Sex and Gender Information Value Date Recorded Sex Assigned at Not on file 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 [facility] Cardiology [address] [place] [id number] Date of Visit: 08/18/2019 Patient ID: Lloyd Redman [id number] This was a telemedicine visit with Lloyd Redman's Raine Redman, which took place via Telephone. During the visit, I was located at [facility] [place] and the patient was located at his/her home. The session started at 1307 and ended at 1328. An additional 10 minutes was spent on chartreview and an additional 5 minutes was spent on documentation. Therefore total time spent caring for this patient was 26 minutes. The patient has been informed that the visit may not be secure and acknowledged the information. My staff explained the option of participating in a telephone or video visit during the [address] emergency to the patient. After being given an opportunity to ask questions about and discuss this type of visit, the patient verbally consented to proceeding with the telephone/video visit. The patient understands that this service replaces an office visit and they may be billed and/or responsible for any applicable copayments. Jaci Olson BANNER Chief Complaint: Lloyd Redman is a 69 y.o. male who was recently found to be in atrial fibrillation when he was hospitalized for abdominal pain and found to have acute cholecystitis. We are attempting hospital follow-up with him after discharge. History of Present Illness: Lloyd Redman is a 69 y.o. male with a past medical history of CHF, HTN, GERD, histoplasmosis, BPH, TIAs, HLD, vitamin-D deficiency, alcohol and tobacco abuse. He presented to [facility] on 07/26/2019 for complaint of right upper quadrant abdominal pain that had begun 4 days prior. He was found to be in AFib with RVR, duration unknown. Dr. Monhaan met him in consultation. He was placed onIV diltiazem and eventually transition to oral diltiazem which she was already taking at home. He was also restarted on his home carvedilol and the dose was increased for better heart rate control. He was also restarted on home Benicar. An echocardiogram showed EF of 45-50%, mild valvular disease and OSCAR. His hospital stay was complicated by altered mental status which was thought to be alcohol withdrawal and from benzodiazepines he was given during the admission. Because of his alcoholism he was deemed a poor candidate for systemic oral anticoagulation. General surgery was consulted and thought he was a poor surgical candidate, so the acute cholecystitis was treated with antibiotics and improved. Of note, he also had a positive guaiac stool, hemoglobin mildly low but stable and further outpatient evaluation of this was advised. He was also treated for COPD exacerbation. After being screened for COVID -19, he was transferred to [place] for rehabilitation on 08/06/2019. Apparently he did not have a primary care provider so his began the process of getting him established with Dr. Crawford. 08/18/2027 telephone hospital follow-up with TISSUE SPECIALIST: The patient is still in [place] and we are unableto contact him, so the hospital follow-up was conducted with the patient's Zenia. She expresses frustration that she has not been able to be with her and there has been little communication from his care providers. As far as she knows his discharge is anticipated this Saturday and he will return to home with her. She herself is under the care of a principal embedded software engineer at [facility], so she is considering taking the patient to her principal embedded software engineer, but is still interested in bringing the patient in for follow- up with Dr. Monahan as soon as possible. Records that I personally reviewed on the day of this visit include: (the interpretation is outlined in the HPI above) July 2019 [facility] inpatient records including the consultation note from Dr. Monahan, the cardiology progress notes and discharge summary. I have also reviewed: allergies, current medications, past family history, past medical history, past social history, past surgical history and problem list Review of Systems Unable to perform ROS: other Pt is currently in a [facility] facility and his is point of contact, which is whom I spoke to, and has had limited contact with him. Vital Signs: Ht 182.9 cm (6') Physical Exam Unable to perform Allergies Allergen Reactions ??? Penicillins Hives Current Outpatient Medications: ??? carvediloL (COREG) 12.5 mg tablet, Take 12.5 mg by mouth 2 (two) times a day with meals, Disp: , Rfl: ??? cholecalciferol (VITAMIN D-3) 5,000 unit tablet, , Disp: , Rfl: ??? diltiazem (TIAZAC) 360 mg 24 hr capsule, Take 360 mg by mouth daily, Disp: , Rfl: ??? folic acid (FOLVITE) 1 mg tablet, Take 1 mg by mouth daily, Disp: , Rfl: ??? lansoprazole (PREVACID) 30 mg capsule, Take 30 mg by mouth daily, Disp: , Rfl: ??? olmesartan-hydrochlorothiazide (BENICAR HCT) 40-12.5 mg per tablet, Take 1 tablet by mouth daily, Disp: , Rfl: ??? potassium chloride ER (KLOR-CON) 10 mEq CR tablet, Take 10 mEq by mouth 2 (two) times a day, Disp: , Rfl: ??? pravastatin (PRAVACHOL) 40 mg tablet, Take 40 mg by mouth daily, Disp: , Rfl: ??? predniSONE (DELTASONE) 20 mg tablet, Take 20 mg by mouth daily, Disp: , Rfl: ??? terazosin (HYTRIN) 10 mg capsule, Take 10 mg by mouth nightly, Disp: , Rfl: ??? thiamine (VITAMIN B1) 100 mg tablet, Take 100 mg by mouth daily, Disp: , Rfl: Assessment: Diagnoses and all orders for this visit: Atrial fibrillation, unspecified type (CMS/HCC) (Primary) LV dysfunction Alcohol abuse Guaiac positive stools Plan/Recommendations: He was diagnosed with atrial fibrillation last month when he was hospitalized for acute cholecystitis. His rate she moderate follow-up okay I can not remember what I can not remember what the nurses DIAMOND talked about oral look at what the chart says item but I was going to ask you could you get theyoung little handheld Doppler is probably and want her to an put in therefore make thank you was controlled with diltiazem and carvedilol. He is an alcoholic, had positive guaiac stools, so for thesereasons he was deemed a poor candidate for systemic oral anticoagulation. An echocardiogram showed mild LV dysfunction and he was continued on his home beta-edmund and ARB. He did not appear to be in any decompensated heart failure. The patient's is considering arranging for the patient to see her principal embedded software engineer at [facility], but right now she would like to arrange follow-up for the patient to see Dr. Monahan in the office as soon as possible. I explained that we would look for a cancellation in his schedule and try to get the patient in for follow-up as soon as possible. However I tried to reassure her that based on the information I have available to me, this follow- up is not urgent. ROCIO Becerra- Nurse Practitioner with [facility] This note is dictated and transcribed using [employer] Direct Software. Spindle Tester variancesmay occur. Despite proofreading, typographical errors may occur. documented in this encounter Plan of Treatment Not on file documented as of this encounter Visit Diagnoses Diagnosis Atrial fibrillation, unspecified type (HCC)- Primary LV dysfunction Left heart failure Alcohol abuse Nondependent alcohol abuse, unspecified drinking behavior Guaiac positive stools Nonspecific abnormal finding in stool contents documented in this encounter Historical Medications * This list may reflect changes made after this encounter. cholecalciferol (VITAMIN D-3) 5,000 unit tabletIndications :Vitamin D Deficiency Take 1 tablet (5,000 Units total) by mouth every other day olmesartan-hydroc hlorothiazide (BENICAR HCT) 40-12.5 mg per tablet Take 1 tablet by mouth daily 12/21/2019 terazosin (HYTRIN) 10 mg capsule Take 10 mg by mouth nightly 02/22/2020 lansoprazole (PREVACID) 30 mg capsule Take 30 mg by mouth daily 12/21/2019 potassium chloride ER (KLOR-CON) 10 mEq CR tablet Take 40 mEq by mouth 2 (two) times a day 12/28/2019 diltiazem (TIAZAC) 360 mg 24 hr capsule Take 360 mg by mouth daily 02/22/2020 pravastatin (PRAVACHOL) 40 mg tablet Take 40 mg by mouth daily 12/21/2019 carvediloL (COREG) 12.5 mg tablet Take 12.5 mg by mouth 2 (two) times a day with meals 12/21/2019 folic acid (FOLVITE) 1 mg tablet Take 1 mg by mouth daily 02/22/2020 predniSONE (DELTASONE) 20 mg tablet Take 20 mg by mouth daily 12/21/2019 thiamine (VITAMIN B1) 100 mg tabletIndications :Thiamine Deficiency Take 100 mg by mouth every morning 07/30/2022 added in this encounter Care Teams Repairer Welding Equipment Relationship Specialty Start Date End Date Jean-Claude Crawford MD [address] [facility] [address] [place] [address] PCP - General Family Medicine 08/18/19 04/11/20 documented as of this encounter
--- OUTSIDE RECORDS SUMMARY | 2024-04-08 10:41 | XMS_ITS | Encounter Summary ---
Author Organization [facility] Address [address] [place] [address] Care Team Providers Care Category Development Analyst Name Role Phone No, Physician Primary Care Provider [phone] Encounter Details Date Type Department Care Team (Late st Contact Info) Description 08/05/2019 Orders Only [facility] Cardiology [address] [facility] [address] [place] [address] Donavan Monahan MD [address] [place], [place] [id number] Social History Tobacco Use Types Packs/Day Years Used Date Smoking Tobacco: Never Assessed Sex and Gender Information Value Date Recorded Sex Assigned at Not on file 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 Gender Identity Not on file Sexual Orientation Not on file documented as of this encounter Plan of Treatment Not on file documented as of this encounter Procedures Procedure Name Priority Date/Time Associated Diagnosis Comments CARDIOLOGY DOCUMENT SCAN Routine 08/05/2019 documented in this encounter Results * SCAN - CARDIOLOGY (08/05/2019) Anatomical Region Laterality Modality Other Donavan Monahan MD CV CARDIAC SERVICES PROC EDURES Final Result documented in this encounter Visit Diagnoses Not on filedocumented in this encounter Care Teams Category Development Analyst Relationship Specialty Start Date End Date No, Physician PCP - General 07/26/19 08/17/19 documented as of this encounter
--- OUTSIDE RECORDS SUMMARY | 2024-04-08 10:41 | XMS_ITS | Encounter Summary ---
Author Organization [facility] Address [address] [place] [address] Care Team Providers Care Hogshead Cooper Name Role Phone No, Physician Primary Care Provider [phone] Encounter Details Date Type Department Care Team (Late st Contact Info) Description 08/02/2019 Orders Only [facility] Cardiology [address] [facility] [address] [place] [address] Donavan Monahan MD [address] [place], [place] [id number] Social History Tobacco Use Types Packs/Day Years Used Date Smoking Tobacco: Never Assessed Sex and Gender Information Value Date Recorded Sex Assigned at Not on file 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 Sex Male 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 Gender Identity Not on file Sexual Orientation Not on file documented as of this encounter Plan of Treatment Not on file documented as of this encounter Procedures Procedure Name Priority Date/Time Associated Diagnosis Comments CARDIOLOGY DOCUMENT SCAN Routine 08/02/2019 documented in this encounter Results * SCAN - CARDIOLOGY (08/02/2019) Anatomical Region Laterality Modality Other Donavan Monahan MD CV CARDIAC SERVICES PROC EDURES Final Result documented in this encounter Visit Diagnoses Not on filedocumented in this encounter Care Teams Hogshead Cooper Relationship Specialty Start Date End Date No, Physician PCP - General 07/26/19 08/17/19 documented as of this encounter
--- OUTSIDE RECORDS SUMMARY | 2024-04-08 10:41 | XMS_ITS | Encounter Summary ---
Author Organization [facility] Address [address] [place] [address] Care Team Providers Care Personal Care Home Administrator Name Role Phone No, Physician Primary Care Provider [phone] Encounter Details Date Type Department Care Team (Late st Contact Info) Description 08/01/2019 Orders Only [facility] Cardiology [address] [facility] [address] [place] [address] Donavan Monahan MD [address] [place], [place] [id number] Social History Tobacco Use Types Packs/Day Years Used Date Smoking Tobacco: Never Assessed Sex and Gender Information Value Date Recorded Sex Assigned at Not on file 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 Gender Identity Not on file Sexual Orientation Not on file documented as of this encounter Plan of Treatment Not on file documented as of this encounter Procedures Procedure Name Priority Date/Time Associated Diagnosis Comments CARDIOLOGY DOCUMENT SCAN Routine 08/01/2019 documented in this encounter Results * SCAN - CARDIOLOGY (08/01/2019) Anatomical Region Laterality Modality Other Donavan Monahan MD CV CARDIAC SERVICES PROC EDURES Final Result documented in this encounter Visit Diagnoses Not on filedocumented in this encounter Care Teams Personal Care Home Administrator Relationship Specialty Start Date End Date No, Physician PCP - General 07/26/19 08/17/19 documented as of this encounter
--- OUTSIDE RECORDS SUMMARY | 2024-04-08 10:41 | XMS_ITS | Encounter Summary ---
Author Organization [facility] Address [address] [place] [address] Care Team Providers Care Harvesting Supervisor Name Role Phone No, Physician Primary Care Provider [phone] Encounter Details Date Type Department Care Team (Late st Contact Info) Description 07/31/2019 Orders Only [facility] Cardiology [address] [place] [address] Araceli Tom, GARIMA [address] [place] [address] Social History Tobacco Use Types Packs/Day Years Used Date Smoking Tobacco: Never Assessed Sex and Gender Information Value Date Recorded Sex Assigned at Not on file 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 Gender Identity Not on file Sexual Orientation Not on file documented as of this encounter Plan of Treatment Not on file documented as of this encounter Procedures Procedure Name Priority Date/Time Associated Diagnosis Comments CARDIOLOGY DOCUMENT SCAN Routine 07/31/2019 documented in this encounter Results * SCAN - CARDIOLOGY (07/31/2019) Anatomical Region Laterality Modality Other Araceli Tom NP CV CARDIAC SERVICES PROCEDURES F inal Result documented in this encounter Visit Diagnoses Not on filedocumented in this encounter Care Teams Harvesting Supervisor Relationship Specialty Start Date End Date No, Physician PCP - General 07/26/19 08/17/19 documented as of this encounter
--- OUTSIDE RECORDS SUMMARY | 2024-04-08 10:41 | XMS_ITS | Encounter Summary ---
Author Organization [facility] Address [address] [place] [address] Care Team Providers Care Diet Clerk Name Role Phone Jean-Claude Crawford MD Primary Care Provider Encounter Details Date Type Department Care Team (Late st Contact Info) Description 09/22/2019 Telephone [facility] Cardiology [address] [place] [address] Jaci Olson NP [address] [place] [address] Social History Tobacco Use Types Packs/Day Years Used Date Smoking Tobacco: Every Day Cigarettes Smokeless Tobacco: Never Alcohol Use Standard Drinks/Week Comments Yes 0 (1 standard drink = 0.6 oz pur e alcohol) limited Sex and Gender Information Value Date Recorded Sex Assigned at Not on file 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 Monahan. Patient and stated the patient is just going to f/u with Dr. Novak at [facility] since that is who the currently sees as a color television console monitor. documented in this encounter Plan of Treatment Not on file documented as of this encounter Visit Diagnoses Not on filedocumented in this encounter Care Teams Diet Clerk Relationship Specialty Start Date End Date Jean-Claude Crawford MD [address] [facility] [address] [place] [address] PCP - General Family Medicine 08/18/19 04/11/20 documented as of this encounter
--- OUTSIDE RECORDS SUMMARY | 2024-04-08 10:41 | XMS_ITS | Encounter Summary ---
Author Organization [facility] Address [address] [place] [address] Care Team Providers Care Full Stack Java Developer Name Role Phone Jean-Claude Crawford MD Primary Care Provider Encounter Details Date Type Department Care Team (Late st Contact Info) Description 10/12/2019 Orders Only [facility] Cardiology [address] [place] [address] Donavan Monahan MD [address] [place] [address] Social History Tobacco Use Types Packs/Day Years Used Date Smoking Tobacco: Every Day Cigarettes Smokeless Tobacco: Never Alcohol Use Standard Drinks/Week Comments Yes 0 (1 standard drink = 0.6 oz pur e alcohol) limited Sex and Gender Information Value Date Recorded Sex Assigned at Not on file 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 Gender Identity Not on file Sexual Orientation Not on file documented as of this encounter Plan of Treatment Not on file documented as of this encounter Procedures Procedure Name Priority Date/Time Associated Diagnosis Comments CARDIOLOGY DOCUMENT SCAN Routine 10/12/2019 documented in this encounter Results * SCAN - CARDIOLOGY (10/12/2019) Anatomical Region Laterality Modality Other Donavan Monahan MD [facility] Final Result documented in this encounter Visit Diagnoses Not on filedocumented in this encounter Care Teams Full Stack Java Developer Relationship Specialty Start Date End Date Jean-Claude Crawford MD [address] [facility] [address] [place] [address] PCP - General Family Medicine 08/18/19 04/11/20 documented as of this encounter
--- OUTSIDE RECORDS SUMMARY | 2024-04-08 10:41 | XMS_ITS | Encounter Summary ---
Author Organization [facility] Address [address] [place] [address] Care Team Providers Care Customer Experience Professional Name Role Phone Jean-Claude Crawford MD Primary Care Provider Encounter Details Date Type Department Care Team (Late st Contact Info) Description 10/14/2019 Orders Only [facility] Cardiology [address] [place] [address] Araceli Tom, GARIMA [address] [place] [address] Social History Tobacco Use Types Packs/Day Years Used Date Smoking Tobacco: Every Day Cigarettes Smokeless Tobacco: Never Alcohol Use Standard Drinks/Week Comments Yes 0 (1 standard drink = 0.6 oz pur e alcohol) limited Sex and Gender Information Value Date Recorded Sex Assigned at Not on file 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 Gender Identity Not on file Sexual Orientation Not on file documented as of this encounter Plan of Treatment Not on file documented as of this encounter Procedures Procedure Name Priority Date/Time Associated Diagnosis Comments CARDIOLOGY DOCUMENT SCAN Routine 10/14/2019 documented in this encounter Results * SCAN - CARDIOLOGY (10/14/2019) Anatomical Region Laterality Modality Other Araceli Tom NP CV CARDIAC SERVICES PROCEDURES F inal Result documented in this encounter Visit Diagnoses Not on filedocumented in this encounter Care Teams Customer Experience Professional Relationship Specialty Start Date End Date Jean-Claude Crawford MD [address] [facility] [address] [facility] [address] [place] [id number] PCP - General Family Medicine 08/18/19 04/11/20 documented as of this encounter
--- OUTSIDE RECORDS SUMMARY | 2024-04-08 10:41 | XMS_ITS | Encounter Summary ---
Author Organization [facility] Address [address] [place] [address] Care Team Providers Care Federal Java Developer Name Role Phone No, Physician Primary Care Provider [phone] Encounter Details Date Type Department Care Team (Late st Contact Info) Description 08/03/2019 Orders Only [facility] Cardiology [address] [place] [address] Herno Martinez MD [facility] [place] [id number] Social History Tobacco Use Types Packs/Day Years Used Date Smoking Tobacco: Never Assessed Sex and Gender Information Value Date Recorded Sex Assigned at Not on file 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 Gender Identity Not on file Sexual Orientation Not on file documented as of this encounter Plan of Treatment Not on file documented as of this encounter Procedures Procedure Name Priority Date/Time Associated Diagnosis Comments CARDIOLOGY DOCUMENT SCAN Routine 08/03/2019 documented in this encounter Results * SCAN - CARDIOLOGY (08/03/2019) Anatomical Region Laterality Modality Other Heron Martinez MD CV CARDIAC SERVICES JON ZHANG Final Result documented in this encounter Visit Diagnoses Not on filedocumented in this encounter Care Teams Federal Java Developer Relationship Specialty Start Date End Date No, Physician PCP - General 07/26/19 08/17/19 documented as of this encounter
--- OUTSIDE RECORDS SUMMARY | 2024-04-08 10:41 | XMS_ITS | Encounter Summary ---
Author Organization [facility] Address [address] [place] [address] Care Team Providers Care Household Appliance Assembler Name Role Phone No, Physician Primary Care Provider [phone] Encounter Details Date Type Department Care Team (Late st Contact Info) Description 08/06/2019 Orders Only [facility] Cardiology [address] [place] [address] Heron Martinez MD [facility] [place] [id number] Social History Tobacco Use Types Packs/Day Years Used Date Smoking Tobacco: Never Assessed Sex and Gender Information Value Date Recorded Sex Assigned at Not on file 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 Gender Identity Not on file Sexual Orientation Not on file documented as of this encounter Plan of Treatment Not on file documented as of this encounter Procedures Procedure Name Priority Date/Time Associated Diagnosis Comments CARDIOLOGY DOCUMENT SCAN Routine 08/06/2019 documented in this encounter Results * SCAN - CARDIOLOGY (08/06/2019) Anatomical Region Laterality Modality Other Heron Martinez MD CV CARDIAC SERVICES JON ZHANG Final Result documented in this encounter Visit Diagnoses Not on filedocumented in this encounter Care Teams Household Appliance Assembler Relationship Specialty Start Date End Date No, Physician PCP - General 07/26/19 08/17/19 documented as of this encounter
--- OUTSIDE RECORDS SUMMARY | 2024-04-08 10:41 | XMS_ITS | Encounter Summary ---
Author Organization [facility] Address [address] [place] [address] Care Team Providers Care Senior Specialist Name Role Phone No, Physician Primary Care Provider [phone] Encounter Details Date Type Department Care Team (Late st Contact Info) Description 07/30/2019 Orders Only [facility] Cardiology [address] [place] [address] Araceli Tom, GARIMA [address] [place] [address] Social History Tobacco Use Types Packs/Day Years Used Date Smoking Tobacco: Never Assessed Sex and Gender Information Value Date Recorded Sex Assigned at Not on file 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 Gender Identity Not on file Sexual Orientation Not on file documented as of this encounter Plan of Treatment Not on file documented as of this encounter Procedures Procedure Name Priority Date/Time Associated Diagnosis Comments CARDIOLOGY DOCUMENT SCAN Routine 07/30/2019 documented in this encounter Results * SCAN - CARDIOLOGY (07/30/2019) Anatomical Region Laterality Modality Other Araceli Tom NP CV CARDIAC SERVICES PROCEDURES F inal Result documented in this encounter Visit Diagnoses Not on filedocumented in this encounter Care Teams Senior Specialist Relationship Specialty Start Date End Date No, Physician PCP - General 07/26/19 08/17/19 documented as of this encounter
--- OUTSIDE RECORDS SUMMARY | 2024-04-08 10:42 | XMS_ITS | Encounter Summary ---
Author Organization [facility] Address [address] [place] [address] Care Team Providers Care Travel Med Surg Rn Name Role Phone No, Physician Primary Care Provider [phone] Encounter Details Date Type Department Care Team (Late st Contact Info) Description 07/28/2019 Orders Only [facility] Cardiology [address] [place] [address] Eric Mayer MD [address] [place] [id number] Social History Tobacco Use Types Packs/Day Years Used Date Smoking Tobacco: Never Assessed Sex and Gender Information Value Date Recorded Sex Assigned at Not on file 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 Gender Identity Not on file Sexual Orientation Not on file documented as of this encounter Plan of Treatment Not on file documented as of this encounter Procedures Procedure Name Priority Date/Time Associated Diagnosis Comments CARDIOLOGY DOCUMENT SCAN Routine 07/28/2019 documented in this encounter Results * SCAN - CARDIOLOGY (07/28/2019) Anatomical Region Laterality Modality Other Eric Mayer MD CV CARDIAC SERVICES PROCEDURES F inal Result documented in this encounter Visit Diagnoses Not on filedocumented in this encounter Care Teams Travel Med Surg Rn Relationship Specialty Start Date End Date No, Physician PCP - General 07/26/19 08/17/19 documented as of this encounter
--- OUTSIDE RECORDS SUMMARY | 2024-04-08 10:42 | XMS_ITS | Encounter Summary ---
Author Organization [facility] Address [address] [place] [address] Care Team Providers Care Garnett Mechanic Name Role Phone No, Physician Primary Care Provider [phone] Encounter Details Date Type Department Care Team (Late st Contact Info) Description 07/27/2019 Orders Only [facility] Cardiology [address] [facility] [address] [place] [address] Donavan Monahan MD [address] [place], [place] [phone] Social History Tobacco Use Types Packs/Day Years Used Date Smoking Tobacco: Never Assessed Sex and Gender Information Value Date Recorded Sex Assigned at Not on file 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 Gender Identity Not on file Sexual Orientation Not on file documented as of this encounter Plan of Treatment Not on file documented as of this encounter Procedures Procedure Name Priority Date/Time Associated Diagnosis Comments CARDIOLOGY DOCUMENT SCAN Routine 07/27/2019 documented in this encounter Results * SCAN - CARDIOLOGY (07/27/2019) Anatomical Region Laterality Modality Other Donavan Monahan MD CV CARDIAC SERVICES PROC EDURES Final Result documented in this encounter Visit Diagnoses Not on filedocumented in this encounter Care Teams Garnett Mechanic Relationship Specialty Start Date End Date No, Physician PCP - General 07/26/19 08/17/19 documented as of this encounter
--- OUTSIDE RECORDS SUMMARY | 2024-04-08 10:42 | XMS_ITS | Encounter Summary ---
Author Organization [facility] Address [address] [place] [address] Care Team Providers Care Pot Puller Name Role Phone No, Physician Primary Care Provider [phone] Encounter Details Date Type Department Care Team (Late st Contact Info) Description 07/27/2019 Orders Only [facility] Cardiology [address] [facility] [address] [place] [address] Donavan Monahan MD [address] [place], [place] [phone] Social History Tobacco Use Types Packs/Day Years Used Date Smoking Tobacco: Never Assessed Sex and Gender Information Value Date Recorded Sex Assigned at Not on file 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
--- OUTSIDE RECORDS SUMMARY | 2024-04-08 10:42 | XMS_ITS | Encounter Summary ---
Author Organization [facility] Address [address] [place] [address] Care Team Providers Care White Shoe Examiner Name Role Phone No, Physician Primary Care Provider [phone] Encounter Details Date Type Department Care Team (Late st Contact Info) Description 07/29/2019 Orders Only [facility] Cardiology [address] [facility] [address] [place] [address] Donavan Monahan MD [address] [place], [place] [phone] Social History Tobacco Use Types Packs/Day Years Used Date Smoking Tobacco: Never Assessed Sex and Gender Information Value Date Recorded Sex Assigned at Not on file 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 Gender Identity Not on file Sexual Orientation Not on file documented as of this encounter Plan of Treatment Not on file documented as of this encounter Procedures Procedure Name Priority Date/Time Associated Diagnosis Comments CARDIOLOGY DOCUMENT SCAN Routine 07/29/2019 documented in this encounter Results * SCAN - CARDIOLOGY (07/29/2019) Anatomical Region Laterality Modality Other Donavan Monahan MD CV CARDIAC SERVICES PROC EDURES Final Result documented in this encounter Visit Diagnoses Not on filedocumented in this encounter Care Teams White Shoe Examiner Relationship Specialty Start Date End Date No, Physician PCP - General 07/26/19 08/17/19 documented as of this encounter
== END 2024-04-05 15:54 | DRG 312 ==
LOC: ANHED 14:25 → ANHIMU 16:29 → ANH3MED 04-05 13:21 → ANHIMU 04-07 13:34
PROVIDERS: Nurse Practitioner Adult Health; Physician Assistant; Admitting Provider Internal Medicine; Emergency Provider Emergency Medicine; PCP Family Medicine; Visit Provider Internal Medicine
DX: I95.1 Orthostatic hypotension (principal); I50.32 Chronic diastolic (congestive) heart failure; I11.0 Hypertensive heart disease with heart failure; F03.90 Unspecified dementia, unspecified severity, without behavioral disturbance, psychotic disturbance, mood disturbance, and anxiety; I48.91 Unspecified atrial fibrillation; E78.5 Hyperlipidemia, unspecified; J44.9 Chronic obstructive pulmonary disease, unspecified; Z86.73 Personal history of transient ischemic attack (TIA), and cerebral infarction without residual deficits; K21.9 Gastro-esophageal reflux disease without esophagitis; N40.0 Benign prostatic hyperplasia without lower urinary tract symptoms; F41.9 Anxiety disorder, unspecified; D64.9 Anemia, unspecified; Z90.49 Acquired absence of other specified parts of digestive tract; Z98.42 Cataract extraction status, left eye; Z98.41 Cataract extraction status, right eye; Z87.891 Personal history of nicotine dependence; Z79.82 Long term (current) use of aspirin; Z20.822 Contact with and (suspected) exposure to COVID-19
CPT/HCPCS: 36415; 70450; 71045; 80048; 80053; 81001; 82948; 83735; 85025; 85027; 85055; 85610; 85730; 87086; 87637; 93005; 93306; 94640; 96360; 97161; 97165; 99285; A9270; G0378; J3475; J3480; J7030; J7040

== ENCOUNTER 2024-08-13 21:57 | Emergency (ER) | payer MEDICARE, SELFPAY ==
[2024-08-13 21:58] VITALS: BP 130/69; PULSE 65; RESP 18; TEMP 36.7; O2SAT 95
--- NOTE | 2024-08-13 22:07 | ECG_ITS ---
Test Date: 2024-08-13 22:10:45 Measurements Intervals [place] Rate: 67 P: 0 NM: 0 QRS: 15 QRSD: 82 T: 17 QT: 443 QTc: 468 Interpretive Statements ATRIAL FIBRILLATION NONSPECIFIC T WAVE ABNORMALITY SEPTAL MYOCARDIAL INFARCTION , OF INDETERMINATE AGE [40+ ms Q WAVE IN V1/V2] Compared to ECG 04/01/2024 14:18:34 Myocardial infarct finding now present Electronically Signed On 08-14-2024 12:10:41 CDT by Trung Ferreira M.D.
[2024-08-13 22:29] VITALS: O2SAT 96
[2024-08-13 22:48] LABS: Basophils Percent Auto 0.4 % (0.2-1.2); Eosinophils Absolute Auto 0.1 K/mm3 (0-0.3); Eosinophils Percent Auto 2.8 % (0-4.4); Hematocrit 36.3 % (42.0-52.0); Hemoglobin 11.9 g/dL (14.0-18.0); Immature Granulocyte Absolute 0.02 K/mm3 (0.00-0.031); Immature Granulocyte Percent A 0.4 % (0-0.5); Immature Platelet Fraction Pct 2.4 % (0.9-11.2); Lymphocytes Absolute Auto 1.52 K/mm3 (0.9-3.2); Lymphocytes Percent Auto 30.4 % (18.3-44.2); Mean Corpuscular HGB Conc 32.8 g/dl (32-36); Mean Corpuscular Hemoglobin 31.2 pg (26-34); Mean Platelet Volume 10.8 fl (7.4-10.4); Monocytes Absolute Auto 0.3 K/mm3 (0.1-0.6); Monocytes Percent Auto 6.2 % (2.6-8.5); Neutrophils Percent Auto 59.8 % (45.5-73.1); Platelet Count Result 126 k/mm3 (150-375); Red Blood Count 3.82 M/mm3 (4.6-6.20); Red Cell Distribution Width 13.4 % (11.5-14.5)
[2024-08-13 22:57] LABS: INR 1.1; Lactic Acid Reflex 0.8 mmol/L (0.7-2.0); Prothrombin Time 14.4 Seconds (11.1-14.7)
[2024-08-13 23:05] LABS: Alanine Aminotransferase 13 U/L (6-50); Albumin Level 3.1 g/dL (3.5-5.1); Alkaline Phosphatase 64 U/L (38-126); Anion Gap 4 mmol/L (4-12); Aspartate Amino Transferase 30 U/L (17-59); Bilirubin,Total 0.5 mg/dL (0.2-1.3); Blood Urea Nitrogen 16 mg/dL (9-20); Calcium 8.4 mg/dL (8.4-10.2); Carbon Dioxide 28 mmol/L (22-30); Chloride 107 mmol/L (98-107); Estimated Glomerular Filt Rate > 60; Glucose 103 mg/dL (65-110); Potassium 3.4 mmol/L (3.4-5.0); Sodium 139 mmol/L (137-145)
[2024-08-13] MEDS: SODIUM CHLORIDE 0.9% IV 1,000 ML 150 ML IV CONT (23:10)
--- NOTE | 2024-08-13 23:35 | PC.NURSE ---
care and report given to GAURAV Vera. all questions answered.
[2024-08-14 00:02] LABS: Add Urine Microscopic? YES; Appearance Urine Clear (Clear); Bacteria Urine None Seen /hpf; Bilirubin Urine Negative (Negative); Blood Urine Negative (Negative); Color Urine Yellow (Yellow); Glucose Urine UA Negative (Negative); Ketones Urine Trace mg/dL (Negative); Leukocyte Esterase Ur Trace LEU/UL (Negative); Need Manual Microscopic Reviewed; Nitrate Urine Negative (Negative); Non Pathogenic Casts 0-2; Protein Urine Negative (Negative); RBC Urine 0-2 /hpf (0-2); Specific Grav Ur 1.021 (1.001-1.035); Squamous Epithelial Cell Urine None Seen /hpf (Few); WBC Urine 0-5 /hpf (0-3)
--- OUTSIDE RECORDS SUMMARY | 2024-08-14 00:03 | XMS_ITS ---
Author Organization [facility] Care Team Providers Care Natural Sciences Department Chair Name Role Phone Traci Minaya Unavailable Unavailable Allergies and adverse reactions Code CodeSystem Substance Reaction Severity StartDate Concern Status 7984 RXNORM Penicillin Itching of skin (code- 633494047, SNOMED CT) Moderate 07/08/2021 active Care Team Name Role Address Phone Organization Dates Traci Minaya PCP [address] [place] [address], [address], [place] (Office): : : [facility] 07/08/2021 - 10/04/2021 Goals Section Description Status Target Date Code Status will be maintained through next revi ew Active 10/26/2021 The resident will resume usu al activities without further incident through the review date. Active 10/26/2021 Mental Status Section Date Assessment Total Score Description 10/04/2021 CAM 4 Delirium indica renetta 07/20/2021 BIMS 10 moderate cognit nimesh impairment CAM 0 No delirium ind icated PHQ-9 00 Problems Problem # Description Date of onset Resolved Date Code CodeSystem Concern Status 1 COVID-[address] active 2 DELIRIUM DUE TO KNOW N PHYSIOLOGICAL CONDITION [address] active 3 FAMILY HISTORY OF FAMILIAL HYPERCHOLESTEROLEMIA [address] active 4 BENIGN INTRACRANIAL HYPERTENSION [address] active 5 COGNITIVE COMMUNICAT ION DEFICIT [address] active 6 DIFFICULTY IN WALKIN G, NOT ELSEWHERE CLASSIFIED [address] active 7 DISPLACED INTERTROCHANTERIC FRACTURE OF LEFT FEMUR, SUBSEQUENT ENCOUNTER FOR CLOSED FRACTURE WITH ROUTINE HEALING [address] active 8 DYSPHAGIA, OROPHARYN GEAL PHASE [address] active 9 MUSCLE WASTING AND ATROPHY, NOT ELSEWHERE CLASSIFIED, MULTIPLE SITES [address] active 10 MUSCLE WEAKNESS (GENERALIZED) [address] active 11 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 OR LESS, SUBSEQUENT ENCOUNTER [address] active Reason for Referral No Reasons for Referral Entered Social History Social History Observation Description Start Date End Date Code Code System Current Smoking Status Tobacco smoking consumption unknown 884312585 SNOMED CT Sex Assigned At Male 1950 59755-0 [facility] Vital Signs Code Code System Vitals Name Values and Units Timing Information 8462-4 [facility] Blood Pressure-Diastolic Value=80 Un its=mmHg 10/04/2021 8480-6 [facility] Blood Pressure-Systolic Kopfy=960 Un its=mmHg 10/04/2021 9279-1 [facility] Respiratory Rate Value=17.0 Units=/m in 10/04/2021 25540-8 [facility] O2 % BldC Oximetry Value=96.0 Units= % 10/04/2021 8310-5 [facility] Body Temperature Value=97.9 Units= F 10/04/2021 8867-4 [facility] Heart rate Value=74.0 Units=/min 95509-3 LOINC Weight Fwfjg=598.4 Units=Lbs 72505-1 INC Pain Level Value=0.0 09/28/2021 2339-0 [facility] Blood Sugar Zkhdx=028.0 Units=mg/dL 07/08/2021
--- OUTSIDE RECORDS SUMMARY | 2024-08-14 00:03 | XMS_ITS | Referral Summary ---
Author Organization [facility] Address [address] [place] [address] Care Team Providers Care Exceptional Student Education Aide Name Role Phone Jean-Claude Crawford MD Unavailable [phone] Jessie Delvalle MD Unavailable + Sandip Barone MD Unavailable [phone] Carey Dorsey EXAM PROCTOR Primary Care Provi jovanny Allergies Active Allergy [...] initial encounter 08/02/2022 Frequent falls 07/29/2022 A-fib 07/17/2022 Sepsis due to COVID-19 10/04/2021 Falls, subsequent encounter 09/25/2021 Assessment & [...] fall. Discussed with his charge nurse. The [employer] and his at length. There has been [...] know the risk benefits. SAH (subarachnoid hemorrhage) 06/29/2021 Assessment & Plan (08/04/2021 4:11 PM CDT): [...] wounds have no more redness. At all. [place] are in place incision appears to be [...] dose. Assessment & Plan (06/15/2020 2:29 PM AIRCRAFT RIVETER): Rates rapid today however, states not rapid at home. Suspect need higher dose of beta-edmund, however, will assess further with Holter. Further recommendations forthcoming. Continue anticoagulation. Chronic systolic heart failure (CMS/HCC) 021 Assessment & Plan (08/02/2021 12:36 PM [...] BRENNON Assessment & Plan (06/15/2020 2:28 PM AIRCRAFT RIVETER): Previously mild last assessed in July last year, likely tachycardia mediated but significant risk factors for CAD in no recent ischemic evaluation. I would favor pharmacologic stress SPECT. Seems to be tolerating current guideline medical therapy. Needs to have a follow-up BMP. Reassess LV function with echo. Further recommendations forthcoming. Cholecystitis 06/14/2020 Overview (06/14/2020): Added automatically from request for surgery [id number] DVT (deep venous thrombosis) 02/20/2020 Intra-abdominal abscess 12/28/2019 Hypercholesterolemia 04/26/2010 Assessment & Plan (09/25/2021 [...] Date Resolved Date Cholecystitis 12/20/2019 07/15/2020 Immunizations Immunization Administration Dates Next Due Influenza, Quadrivalent, Hig [...] attend chur ch or confucianist services? Never 07/31/2022 Do you belong to any clubs o r organizations such as sikhism groups, unions, fraternal or athletic groups, or [...] slept in a residential (including now)? No 07/31/2022 Personal Safety Answer Date Recorded Have you ever been in or are you currently in a harmful physical or emotional relationship or is someone making you feel afraid or unsafe? 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 Sex Male 9:10 PM AIRCRAFT RIVETER Gender Identity Not on file Sexual Orientation Not on file Last Filed Vital Signs Vital Sign Reading Time Taken Comments Blood Pressure 114/82 05/15/2023 12:14 PM AIRCRAFT RIVETER Pulse 85 05/15/2023 12:14 PM AIRCRAFT RIVETER Temperature 36.1 C (97 F) 08/29/2022 10:02 AM CDT Respiratory Rate 19 08/29/2022 10:02 AM CDT Oxygen Saturation 90% 05/15/2023 12:14 PM AIRCRAFT RIVETER Inhaled Oxygen Concentration - - Weight 81.6 kg (180 lb) 05/15/2023 12:14 PM AIRCRAFT RIVETER Height 180.3 cm (5' 11 ) 05/15/2023 12:14 PM AIRCRAFT RIVETER Body Mass Index 25.1 05/15/2023 12:14 PM AIRCRAFT RIVETER Plan of Treatment Not on file Medical Devices Implanted Type Area Mandrel Press Hand Device Identifier Shelf Expiration Date Model / Serial / Lot [employer] [place] Watchman Flx Procedure Device Wmflxperproc - S0 - [id number] Implanted:Qty: 1 on 07/17/2022 by Pedro Luis Mccormack MD at [facility] Left Atrial Appendage Occluder N/A: Atrial Appendage [employer] Mar[place]osa 04/24/2025 [id number] C / 0 / [id number] Das & Nephew/Richco/O rtho [id number] n 44cm 13mm Left Intertrochanter 130d 1.5mm Nail - [id number] Implanted:Qty: 1 on 07/04/2021 by Jessie Delvalle MD at [facility] Left: Femur [employer]Rich[employer] /Ortho 09/15/2030 [id number] / / [employer]hew/Richco/O rtho Intertan 4.5mm 95mm 90mm Lag Compression Integrated Interlocking [id number] - [id number] Implanted:Qty: 1 on 07/04/2021 by Jessie Delvalle MD at [facility] Left: Femur [employer]Rich[employer] /Ortho 05/14/2031 [id number] / / [employer]hew/Richco/O rtho [id number] 5mm 52.5mm Low Profile Internal Hex Femur Screw Bone Trigen - [id number] Implanted:Qty: 1 on 07/04/2021 by Jessie Delvalle MD at [facility] Left: Femur [employer]Rich[employer] /Ortho [id number] / / [employer]hew/Richco/O rtho [id number] Trigen 5mm 62.5mm Low Profile Femur Screw Bone - [id number] Implanted:Qty: 1 on 07/04/2021 by Jessie Delvalle MD at [facility] Left: Femur [employer]Rich[employer] /Ortho [id number] / / [employer]Rich[employer]/O rtho Intertan 11.5mm 20cm Trochanteric 125d Nail Intramedullary [id number] - [id number] Implanted:Qty: 1 on 10/08/2021 by Miguel Flores MD at [facility] Right: Femur [employer]Rich[employer] /Ortho [id number] 09/21/2030 [id number] / / [id number] [employer]Rich[employer]/O rtho Intertan 11mm 90mm Lag Subtrochanter Screw Bone Titanium [id number] - [id number] Implanted:Qty: 1 on 10/08/2021 by Miguel Flores MD at [facility] Right: Femur [employer]Rich[employer] /Ortho [id number] 04/21/2030 [id number] / / [id number] Sandoval V[employer] Device Clsr Perclose Prostyle Sut-Mediatd Closure-Repair Sys 86824-62 - S0 - [id number] Implanted:Qty: 1 on 07/17/2022 by Pedro Luis Mccormack MD at [facility] [employer] 04/07/2024 [id number] / 0 / [id number] Sand[employer] Device Clsr Perclose Prostyle Sut-Mediatd Closure-Repair Sys 88142-89 - S0 - [id number] Implanted:Qty: 1 on 07/17/2022 by Pedro Luis Mccormack MD at [facility] [employer] 04/07/2024 [id number] / 0 / [id number] Procedures Procedure Name Priority Date/Time Associated Diagnosis Comments HEPATITIS PANEL, ACUTE Routine 06/12/2021 4:[address] ABDOMEN PELVIS W CONTRAST Schedule Routine, Read Routine (OP Routine) 06/13/2020 12:13 PM AIRCRAFT RIVETER Cholecystitis from Last 3 Months or Most Recently Relevant to Health Maintenance Results * Hepatitis panel, acute (06/12/2021 4:34 PM AIRCRAFT RIVETER) Hep A IgM Nonreactive Nonreactive [facility] Comment: Interpretive Data: If Hep A IgM Ab is reported as Equivocal, a new sample should be drawn in two weeks for testing. Current interpretive data was last revised on 19. Hep B core IgM Nonreactive Nonreactive [facility]AK[facility] Warner Comment: Interpretive Data If HepB Core IgM Ab is reported as Equivocal, a new sample should be drawn in two weeks for testing. Current interpretive data was last revised on 19. Hep C Ab Nonreactive Nonreactive [facility] Comment:Antibodies to HCV no t detected. Does NOT exclude the possibility of recent exposure to HCV. HepBsAg Nonreactive Nonreactive [facility] Blood 06/12/2021 4:34 PM AIRCRAFT RIVETER 06/12/2021 4:44 PM AIRCRAFT RIVETER us Romy Trent EXAM PROCTOR LAB MICROBIOLOGY - [facility] AL ORDERABLES Edited Result - Final [facility] [place] [address] * CT Abdomen Pelvis W Contrast (06/13/2020 12:13 PM AIRCRAFT RIVETER) Anatomical Region Laterality Modality Body N/A Computed Tomogra phy 06/13/2020 12:3 2 PM AIRCRAFT RIVETER Addenda Addendum by Stepan Scott MD on 07/26/2020 3:48 PM CDT ADDENDUM: To correct the title and technique of this exam, the exam performed was a CT of the abdomen and pelvis with intravenous contrast. The chest was not scanned. Electronically signed by: Stepan Scott M.D. Impressions 06/13/2020 12:32 PM AIRCRAFT RIVETER 1. Interval decrease in size of an abscess extending from the gallbladder fossa the anterior abdominal wall. 2. Extensive colonic diverticulosis. Mild thickening of the right hemicolon may be related to chronic diverticulitis. 3. Small pleural and pericardial effusions. Electronically signed by: Stepan Scott M.D. Narrative 06/13/2020 12:32 PM AIRCRAFT RIVETER EXAMINATION: Computed tomography of the chest, abdomen [...] by: Stepan Scott M.D. Eugene Gomez MD IM CT [...] notified. Amanda Walker RN 12/19/2019 12/19/2019 Insurance [employer] MED[employer]ARE HMO P[place] [employer] MED[place] HMO PPO [employer]ARE HMO PPO Advance Directives For more information, please contact: [phone] Documents on File Type Date Recorded Patient Plant Director Expl anation ADVANCE DIRECTIVE 07/29/2022 11:00 PM Artemio r of Licensing Specialist-Medical ADVANCE DIRECTIVE 07/10/2021 11:03 AM POWER OF BENDING PRESS OPERATOR-MEDICAL ADVANCE DIRECTIVE 06/21/2021 6:25 PM POA ADVANCE [...] Agents on File Name Relationship Healthcare Agent [facility] Communication Raine Sale Daughter Health Care Agent Care Teams Exceptional Student Education Aide Relationship Specialty Start Date End Date Carey Dorsey NP [address] [place] [place] [id number] PCP - General Family Medicine 05/15/23 Jean-Claude Crawford MD [address] [place] [address] Family Medicine 04/12/20 Jessie Delvalle MD [address] [place] [address] Orthopedic Surgery 07/07/21 Sandip Barone MD [address] [place] [address] Consulting Physician Neurosurgery 07/07/21
--- OUTSIDE RECORDS SUMMARY | 2024-08-14 00:03 | XMS_ITS ---
Author Organization [facility] Care Team Providers Care Senior Staff Consultant Name Role Phone Tres Ramos Unavailable Unavailable Sonya Pop Unavailable Unavailable Ketty Gabriel Unavailable Allergies and adverse reactions Code CodeSystem Substance Reaction Severity StartDate Concern Status 192813270 SNOMED CT Penicillins Unknown 11/01/2021 activ e Care Team Name Role Address Phone Organization Dates Sonya Pop PCP [address] [place], [address], [place] (Office): : [facility] 11/02/2021 - 12/22/2021 Tres Ramos Attending Physician [address] [place], [address], [place] (Office): : [facility] 11/02/2021 - 12/22/2021 Ketty Gabriel Attending Physician [address] [place], [address], [place] (Office): [facility] 11/02/2021 - 12/22/2021 Mental Status Section Date Assessment Total Score Description 12/22/2021 BIMS 03 severe cognitiv e impairment CAM 4 Delirium indica renetta PHQ-9 12 moderate depres linda 11/24/2021 BIMS 07 severe cognitiv e impairment CAM 0 No delirium ind icated PHQ-9 12 moderate depres linda Problems Problem # Description Date of onset Resolved Date Code CodeSystem Concern Status 1 CHRONIC OBSTRUCTIVE PULMONARY DISEASE, UNSPECIFIED [address] active 2 CHRONIC SYSTOLIC (CONGESTIVE) HEART FAILURE [address] active 3 DISPLACED INTERTROCHANTERIC FRACTURE OF RIGHT FEMUR, SUBSEQUENT ENCOUNTER FOR CLOSED FRACTURE WITH ROUTINE HEALING [address] active 4 DYSPHAGIA FOLLOWING UNSPECIFIED CEREBROVASCULAR DISEASE 186183175 SNOMED CT active 5 DYSPHASIA FOLLOWING UNSPECIFIED CEREBROVASCULAR DISEASE [address] active 6 INSOMNIA, UNSPECIFIED [address] active 7 ORTHOSTATIC HYPOTENSION [address] active 8 OTHER ABNORMALITIES OF GAIT AND MOBILITY 92774467 SNOMED CT active 9 OTHER SPEECH AND LANGUAGE DEFICITS FOLLOWING UNSPECIFIED CEREBROVASCULAR DISEASE [address] active 10 PERSONAL HISTORY OF COVID-[address] active 11 PERSONAL HISTORY OF TRAUMATIC BRAIN INJURY [address] active 12 SEPSIS, UNSPECIFIED ORGANISM [address] active 13 UNSTEADINESS ON FEET [address] active 14 DYSPHAGIA, PHARYNGEAL PHASE [address] active 15 OTHER PULMONARY EMBOLISM WITHOUT ACUTE COR PULMONALE [address] active 16 PERITONEAL ABSCESS [address] active 17 ABSCESS OF LIVER [address] active 18 DYSPHAGIA, OROPHARYNGEAL PHASE [address] active 19 NEED FOR ASSISTANCE WITH PERSONAL CARE [address] active 20 MUSCLE WEAKNESS (GENERALIZED) [address] active 21 ACUTE CHOLECYSTITIS [address] active 22 ACUTE RESPIRATORY FAILURE, UNSPECIFIED WHETHER WITH HYPOXIA OR HYPERCAPNIA [address] active 23 ESSENTIAL (PRIMARY) HYPERTENSION [address] active 24 DISORIENTATION, UNSPECIFIED [address] active 25 FRONTAL LOBE AND EXECUTIVE FUNCTION DEFICIT 295373316 SNOMED CT active 26 OTHER SYMPTOMS AND SIGNS INVOLVING COGNITIVE FUNCTIONS AND AWARENESS 301724009 SNOMED CT active 27 MUSCLE WASTING AND ATROPHY, NOT ELSEWHERE CLASSIFIED, UNSPECIFIED SITE 64364405 SNOMED CT active 28 DIFFICULTY IN WALKING, NOT ELSEWHERE CLASSIFIED 643173666 SNOMED CT active 29 ALCOHOL ABUSE, UNCOMPLICATED 95804237 SNOMED CT active 30 BENIGN PROSTATIC HYPERPLASIA WITHOUT LOWER URINARY TRACT SYMPTOMS 821589223 SNOMED CT active 31 CHOLECYSTITIS, UNSPECIFIED 88456306 SNOMED CT active 32 GASTRO-ESOPHAGEAL REFLUX DISEASE WITHOUT ESOPHAGITIS 186377889 SNOMED CT active 33 HISTOPLASMOSIS, UNSPECIFIED 36179057 SNOMED CT active 34 HYPERLIPIDEMIA, UNSPECIFIED 95335964 SNOMED CT active 35 LEGAL BLINDNESS, DEFINED IN [place] 383823131 SNOMED CT active 36 PERSONAL HISTORY OF TRANSIENT ISCHEMIC ATTACK (TIA), AND CEREBRAL INFARCTION WITHOUT RESIDUAL DEFICITS 72601283 SNOMED CT active 37 UNSPECIFIED SYSTOLIC (CONGESTIVE) HEART FAILURE 93516807 SNOMED CT active 38 VITAMIN D DEFICIENCY, UNSPECIFIED 94276285 SNOMED CT active Reason for Referral No Reasons for Referral Entered Social History Social History Observation Description Start Date End Date Code Code System Current Smoking Status Tobacco smoking consumption unknown 636654110 SNOMED CT Sex Assigned At Male 1950 37277-1 [facility] Vital Signs Code Code System Vitals Name Values and Units Timing Information 8867-4 [facility] Heart rate Value=80.0 Units=/min 50141-0 LOINC Pain Level Value=0.0 12/22/2021 8310-5 [facility] Body Temperature Value=97.9 Units= F 12/22/2021 72295-7 [facility] O2 % BldC Oximetry Value=98.0 Units= % 12/22/2021 8462-4 [facility] Blood Pressure-Diastolic Value=88 Un its=mmHg 12/22/2021 8480-6 [facility] Blood Pressure-Systolic Lxzbk=342 Un its=mmHg 12/22/2021 54454-6 [facility] Weight Sfxup=856.2 Units=Lbs 9279-1 [facility] Respiratory Rate Value=18.0 Units=/m in 11/22/2021 8302-2 [facility] Height Value=71.0 Units=Inches 11/02/2021
--- OUTSIDE RECORDS SUMMARY | 2024-08-14 00:03 | XMS_ITS | Clinical Summary ---
Author Organization [facility] Address [address] [place] [address] Care Team Providers Care Assisted Sales Representative Name Role Phone Traci Minaya MD Primary Care Provider Unavailab le Medications acetaminophen (TYLENOL) 325 mg tablet Take 650 mg by mouth every 4 hours as needed for Pain. Active aspirin (ECOTRIN EC) 81 mg Tablet, Delayed Release (E.C.) Take 81 mg by mouth daily. Active albuterol (ACCUNEB) 1.25 mg/3 mL Solution for Nebulization Take 1.25 mg by inhalation every 6 hours as needed for Shortness of Breath. Active cholecalciferol, Vitamin D3, 125 mcg (5,000 unit) Capsule Take 5,000 Units by mouth daily. Active fluticasone furoate-vilantero L (BREO ELLIPTA) 100-25 mcg/dose Disk with Device Take 1 Puff by inhalation daily. Active folic acid (FOLVITE) 1 mg tablet Take 1 mg by mouth daily. 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 Gender Identity Not on file Sexual Orientation Not on file Last Filed Vital Signs Vital Sign Reading Time Taken Comments Blood Pressure 182/116 09/19/2021 6:55 AM CDT Pulse 98 09/19/2021 6:55 AM CDT Temperature - - Respiratory Rate 18 09/19/2021 6:55 AM CDT Oxygen Saturation 95% 09/19/2021 6:55 AM CDT Inhaled Oxygen Concentration - - Weight - - Height - - Body Mass Index - - Plan of Treatment Health Maintenance Due Date Last Done Comments DTAP/TDAP/TD VACCINES (1 - Tdap) 1970 PNEUMOCOCCAL VACCINE 50+ YEARS (1 of 2 - PCV) 05/19/18 71 COLORECTAL SCREENING 1996 Colorectal Cancer Screening 1996 FIT-DNA Q 3 years 1996 FIT/FOBT Q 1 year 1996 Flex Sig/CT Colonography Q 5 years 1996 ZOSTER VACCINE (1 of 2) 2001 RSV VACCINE (60+ or ) (1 - Risk 60-74 years 1-dose series) 2011 INFLUENZA VACCINE (#1) 2023 02/20/2020 Insurance BCBS MEDICARE BCBS MEDICARE Care Teams Assisted Sales Representative Relationship Specialty Start Date End Date Traci Minaya MD PCP - General Geriatric Medicine 09/19/21
--- OUTSIDE RECORDS SUMMARY | 2024-08-14 00:03 | XMS_ITS | Clinical Summary ---
Author Organization [facility] Address [address] [place] [address] Care Team Providers Care [place] Name Role Phone None, Physician Primary Care Provider Unavailabl e Source Comments [facility],non-owned Affiliates and Associated Physician Practices is amultiple site organization consisting of ambulatory clinics and hospital sitesin [place], [place], [place] and [place]. This disclosure is being madepursuant to the Care Everywhere program and may not contain all information available regarding this patient. Last updated 17.[facility] Medications * Be aware that medications may not be up to date on this document. Alwaysverify current medications with the patient. aspirin EC (Ecotrin) 81 MG tablet Take 1 (one) tablet by mouth once daily Active atorvastatin (Lipitor) 10 MG tablet Take 1 (one) tablet by mouth at bedtime Active metoprolol tartrate IR (Lopressor) 100 MG tablet Take 1 (one) tablet by mouth 2 times daily Active omeprazole (PriLOSEC) 20 MG capsule Take 1 (one) capsule by mouth once daily Active fluticasone-renato meterol (Advair/Wixela) 100-50 MCG/ACT inhaler Inhale 1 (one) puff by mouth once daily Active amLODIPine (Norvasc) 5 MG tablet Take 1 (one) tablet by mouth once daily Active donepezil (Aricept) 10 MG tablet Take 1 (one) tablet by mouth at bedtime Active escitalopram (Lexapro) 5 MG tablet Take 1 (one) tablet by mouth once daily Active losartan (Cozaar) 100 MG tablet Take 1 (one) tablet by mouth once daily Active ramelteon (Rozerem) 8 MG tablet Take 1 (one) tablet by mouth nightly as needed for Insomnia Active senna (Senokot) 8.6 MG tablet Take by mouth 2 times daily Active terazosin (Hytrin) 10 MG capsule Take 1 (one) capsule by mouth once daily Active traZODone (Desyrel) 50 MG tablet Take 1 (one) tablet by mouth at bedtime Active nystatin (Mycostatin) 138174 UNIT/GM powder Apply to affected area 2 times daily 5 Active sulfamethoxazol e-trimethoprim (Bactrim DS; Septra DS) 800-160 MG tablet Take 1 (one) tablet by mouth every 12 hours for 11 doses 5 08/18/19 Active albuterol (Accuneb) 1.25 MG/3ML nebulizer solution Inhale 3 mL by mouth every 6 hours as needed 08/11/19 Discontinu ed(List Clean-Up) fluticasone-awais anterol (Breo Ellipta) 100-25 MCG/ACT inhaler Inhale 1 (one) puff by mouth once daily 08/11/19 Discontinu ed(List Clean-Up) Active Problems Problem Noted Date Diagnosed Date 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 Dementia 08/07/2024 Longstanding persistent atrial fibrillation 05/2024 Confusion 08/07/2024 HTN (hypertension) 08/07/2024 HLD (hyperlipidemia) 08/07/2024 Presence of Watchman left atrial appendage closu re device 08/07/2024 Chronic heart failure with preserved ejection fr action 08/07/2024 COPD (chronic obstructive pulmonary disease) 05/2024 BPH (benign prostatic hyperplasia) 08/07/2024 Hypokalemia 08/07/2024 Vomiting, unspecified vomiti ng type, unspecified whether nausea present 08/07/2024 Normocytic anemia 08/07/2024 Altered mental status, unspe cified altered mental status type 08/07/2024 Weakness 08/07/2024 Acute cystitis without hematuria 08/07/2024 Intracranial hemorrhage 06/11/2021 Encounters Date Type Department Care Team Description 08/07/2024 2:17 PM CDT - 08/11/2024 7:38 PM CDT Hospital Encounter [facility]N ACUTE [address] [place] [address] Edwardo Kincaid MD Garcia, Andrew M, MD Kunnath, Paul V., MD Pollard, Myron Lazo II, MD Internal Medicine Discharge Disposition: Senior Care Facility 08/07/2024 Travel from Last 3 Months Social History Tobacco Use Types Packs/Day Years Used Date Smoking Tobacco: Never Smokeless Tobacco: Never Tobacco Cessation:Counseling Given: Not Answered Alcohol Use Standard Drinks/Week Comments Not Currently 0 (1 standard drink = 0.6 oz pur e alcohol) Sex and Gender Information Value Date Recorded Sex Assigned at Not on file 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[employer] Gender Identity Not on file Sexual Orientation Not on file Last Filed Vital Signs Vital Sign Reading Time Taken Comments Blood Pressure 107/74 08/11/2024 2:28 PM CDT Pulse 62 08/11/2024 4:59 PM CDT Temperature 36.7 C (98 F) 08/11/2024 2:28 PM CDT Respiratory Rate 16 08/11/2024 4:59 PM CDT Oxygen Saturation 95% 08/11/2024 4:59 PM CDT Inhaled Oxygen Concentration - - Weight 86 kg (189 lb 8 oz) 08/07/2024 11:56 PM C DT Height 182.9 cm (6') 08/07/2024 2:52 PM CDT Body Mass Index 25.7 08/07/2024 2:52 PM CDT Plan of Treatment Health Maintenance Due Date Last Done Comments COLOGUARD (AGES 45-75) - COL ON CA SCREENING 1950 COLON MONITORING 1951 COLONOSCOPY - COLON CA SCREENING 1951 CT COLONOGRAPHY - COLON CA SCREENING 1950 Colorectal Cancer Screening 1950 FIT - COLON CA SCREENING 1951 FLEX SIG - COLON CA SCREENING 1950 HEPATITIS C SCREENING 05/14/1969 DTAP/TDAP/TD VACCINES (1 - Tdap) 1970 PNEUMOCOCCAL VACCINE 50+ (1 of 2 - PCV) 1970 ZOSTER VACCINE (1 of 2) 2001 Respiratory Syncytial Virus (RSV) Vaccine Pt: or over 60 yrs (1 - Risk 60-74 years 1-dose series) 2011 COVID-19 VACCINE (3 2023-2 5 season) 2023 08/24/2020, 08/03/2020 DEPRESSION SCREENING 04/08/2024 MEDICARE AWV CALENDAR YEAR 2024 INFLUENZA VACCINE (Season Ended) 2024 HEPATITIS B VACCINE Aged Out No longe r eligible based on patient's age to complete this topic HIB VACCINE Aged Out No longer eligi ble based on patient's age to complete this topic HPV VACCINE Aged Out No longer eligi ble based on patient's age to complete this topic MENINGOCOCCAL (Group B) VACCINE SHARED DECISION-MAKING Aged Out No longer eligible based on patient's age to complete this topic MENINGOCOCCAL GROUPS A/C/Y/W VACCINE Aged Out No longer eligible b ased on patient's age to complete this topic Procedures Procedure Name Priority Date/Time Associated Diagnosis Comments RENAL FUNCTION PANEL Routine 08/11/2024 2:51 AM CDT Acute cystitis without hematuria CBC W/O DIFFERENTIAL AM Draw 08/11/2024 2:51 AM CDT Acute cystitis without hematuria MAGNESIUM BLOOD Routine 08/11/2024 2:51 AM CDT Acute cystitis without hematuria CARDIAC EKG ORDER 08/10/2024 10: 42 AM CDT RENAL FUNCTION PANEL Routine 08/10/2024 2:07 AM CDT Acute cystitis without hematuria CBC W/O DIFFERENTIAL AM Draw 08/10/2024 2:07 AM CDT Acute cystitis without hematuria MAGNESIUM BLOOD Routine 08/10/2024 2:07 AM CDT Acute cystitis without hematuria XR CHEST 1VW PORTABLE Routine 08/09/2024 10:56 AM CDT Altered mental status, unspecified altered mental status type Acute cough RENAL FUNCTION PANEL Routine 08/09/2024 1:31 AM CDT Acute cystitis without hematuria CBC W/O DIFFERENTIAL AM Draw 08/09/2024 1:31 AM CDT Acute cystitis without hematuria MAGNESIUM BLOOD Routine 08/09/2024 1:31 AM CDT Acute cystitis without hematuria MRI BRAIN WO CONTRAST STAT 08/08/2024 3:01 PM CDT Weakness Vomiting, unspecified vomiting type, unspecified whether nausea present RENAL FUNCTION PANEL Routine 08/08/2024 12:44 AM CDT Acute cystitis without hematuria CBC W/O DIFFERENTIAL AM Draw 08/08/2024 12:44 AM CDT Acute cystitis without hematuria MAGNESIUM BLOOD Routine 08/08/2024 12:44 AM CDT Acute cystitis without hematuria URINALYSIS REFLEX MICROSCOPIC REFLEX CULTURE STAT 08/07/2024 7:03 PM CDT CULTURE URINE STAT 08/07/2024 7:03 PM CDT TSH REFLEX FREE T4 Add on 08/07/2024 3: 54 PM CDT Acute cystitis without hematuria C-REACTIVE PROTEIN ADITYA 08/07/2024 3: 54 PM CDT ERYTHROCYTE SEDIMENTATION RATE STAT 08/07/2024 3:54 PM CDT TROPONIN-I HIGH SENSITIVE REFLEX 1HOUR Timed 08/07/2024 3:52 PM CDT BLOOD TYPE VERIFICATION STAT 08/07/2024 3:50 PM CDT XR CHEST 1VW STAT 08/07/2024 2:52 PM CDT Weakness Vomiting, unspecified vomiting type, unspecified whether nausea present CT BRAIN STROKE STAT 08/07/2024 2:[address] ANGIO BRAIN NECK STROKE STAT 08/07/2024 2:34 PM CDT Weakness TYPE + SCREEN PANEL STAT 08/07/2024 2 :28 PM CDT TROPONIN-I HIGH SENSITIVE BASELINE + 1HR STAT 08/07/2024 2:28 PM CDT LIPASE BLOOD STAT 08/07/2024 2:28 PM CDT LACTIC ACID BLOOD REFLEX TO REPEAT STAT 08/07/2024 2:28 PM CDT PT-INR [facility] STAT 08/07/2024 2:28 PM CDT COMPREHENSIVE METABOLIC PANEL STAT 08/07/2024 2:28 PM CDT CBC W AUTO DIFFERENTIAL STAT 08/07/2024 2:28 PM CDT CREATININE - POCT INTERFACED Routine 08/07/2024 2:25 PM CDT INR WHOLE BLOOD - POINT OF CARE (IP) STROKE Routine 08/07/2024 2:25 PM CDT GLUCOSE - POINT OF CARE Routine 08/07/2024 2:24 PM CDT from Last 3 Months Results * (ABNORMAL) CBC W/O DIFFERENTIAL (08/11/2024 2:51 AM CDT) Only the most recent of4 resultswithin the time period is included. WBC 6.1 4.0 - 10.7 x10E9/L 08/11/2024 3:33 AM CDT [facility] RBC Count 4.02(L) 4.30 - 5.80 x10E12/L 08/11/2024 3:33 AM CDT [facility] Hemoglobin 12.9(L) 13.3 - 17.5 g/dL 08/11/2024 3:33 AM CDT [facility] Hematocrit 35.7(L) 38.7 - 51.1 % 08/11/2024 3:33 AM [facility] MCV 88.8 80.0 - 98.0 fL 08/11/2024 3:33 AM [facility] MCH 32.1 26.7 - 33.6 pg 08/11/2024 3:33 AM [facility] MCHC 36.1 31.7 - 36.3 g/dL 08/11/2024 3:33 AM [facility] RDW-CV 12.6 11.3 - 14.8 % 08/11/2024 3:33 AM [facility] Platelet Count 132(L) 150 - 420 x10E9/L 08/11/2024 3:33 AM [facility] MPV 10.2 7.8 - 11.4 fL 08/11/2024 3:33 AM [facility] Blood BLOOD SPECIMEN / Unknown Lab Venipuncture / Unknown 08/11/2024 2:51 AM CDT 08/11/2024 3:16 AM CDT us Bill Acuna MD LAB - HEMATOLOGY ORDERABLES F inal Result [address] [address], [facility] [phone] * (ABNORMAL) RENAL FUNCTION PANEL (08/11/2024 2:51 AM CDT) Only the most recent of4 resultswithin the time period is included. BUN 13 7 - 26 mg/dL 08/11/2024 3:46 AM [facility] Creatinine 1.08 0.71 - 1.16 mg/dL 08/11/2024 3:46 AM [facility] Sodium 141 136 - 145 mmol/L 08/11/2024 3:46 AM [facility] Potassium 4.0 3.5 - 4.5 mmol/L 08/11/2024 3:46 AM [facility] Chloride 107 98 - 107 mmol/L 08/11/2024 3:46 AM [facility] CO2 23 22 - 29 mmol/L 08/11/2024 3:46 AM [facility] Glucose 100(H) 70 - 99 mg/dL 08/11/2024 3:46 AM [facility] Albumin 2.8(L) 3.4 - 5.0 g/dL 08/11/2024 3:46 AM [facility] Calcium 8.0(L) 8.4 - 10.2 mg/dL 08/11/2024 3:46 AM [facility] Phosphorus 4.0 2.8 - 5.1 mg/dL 08/11/2024 3:46 AM [facility] Anion Gap 11 6 - 16 08/11/2024 3:46 AM [facility] BUN/Creatinine Ratio 12 7 - 23 08/11/2024 3:46 AM [facility] Osmolality Calculated 292 275 - 295 mOsm/kg 08/11/2024 3:46 AM [facility] eGFR by CKD-EPI 72(L) >=90 mL/min/1.7 3 m2 08/11/2024 3:46 AM [facility] Blood BLOOD SPECIMEN / Unknown Lab Venipuncture / Unknown 08/11/2024 2:51 AM CDT 08/11/2024 3:15 AM CDT Bill Acuna MD LAB - CHEMISTRY ORDERABLES Fi nal Result Performing Organization Address City/[facility]/ZIP Co de Phone Number [address] [address], [facility] [phone] * MAGNESIUM BLOOD (08/11/2024 2:51 AM CDT) Only the most recent of4 resultswithin the time period is included. Magnesium 1.6 1.6 - 2.6 mg/dL 08/11/2024 3:43 AM [facility] Blood BLOOD SPECIMEN / Unknown Lab Venipuncture / Unknown 08/11/2024 2:51 AM CDT 08/11/2024 3:15 AM CDT Bill Acuna MD LAB - CHEMISTRY ORDERABLES Fi nal Result [facility] [address] [place] [address], [facility] [phone] * CARDIAC EKG ORDER (08/10/2024 10:42 AM CDT) Narrative 08/10/2024 10:42 AM CDT Ordered by an unspecified provider. us Scanned Document CARDIAC SERVICES ORDERABLES Fin al Result * XR Chest 1Vw Portable (08/09/2024 10:56 AM CDT) Anatomical Region Laterality Modality Chest Digital Radiogra phy 08/09/2024 7:51 PM CDT Narrative 08/09/2024 7:52 PM CDT PROCEDURE: XR CHEST 1VW PORTABLE DATE/TIME OF EXAM: 08/09/2024 10:56 AM CLINICAL INFORMATION: None relevant/not provided if blank. Indication: R41.82: Altered mental status, unspecified altered mental status type R05.1: Acute cough Additional History: COMPARISON: 08/07/2024. FINDINGS: Tubes and lines: Lungs are moderately expanded. No acute consolidations or air space opacities are seen. No pleural effusion or pneumothorax seen. No other newly developed findings in the chest. > Interpreting Provider: Regan Fisher MD on 08/09/2024 7:52 PM Procedure Note Regan Fisher MD - 08/09/2024 PROCEDURE: XR CHEST 1VW PORTABLE DATE/TIME OF EXAM: 08/09/2024 10:56 AM CLINICAL INFORMATION: None relevant/not provided if blank. Indication: R41.82: Altered mental status, unspecified altered mental status type R05.1: Acute cough Additional History: COMPARISON: 08/07/2024. FINDINGS: Tubes and lines: Lungs are moderately expanded. No acute consolidations or air space opacities are seen. No pleural effusion or pneumothorax seen. No other newly developed findings in the chest. > Interpreting Provider: Regan Fisher MD on 08/09/2024 7:52PM us Myron Zapien II, MD DIAGNOSTIC IMAGING ORDER VALERI Final Result * MRI Brain Wo Contrast (08/08/2024 3:01 PM CDT) Anatomical Region Laterality Modality Head Magnetic Resonan ce 08/08/2024 3:01 PM CDT Impressions 08/08/2024 3:03 PM CDT IMPRESSION: 1. No acute intracranial process. Specifically, no acute infarct or acute intracranial hemorrhage. However, this study is significantly degraded by motion artifacts and poor image quality. 2. Presumed chronic small vessel ischemic disease of the brain with cerebral volume loss. A small chronic lacunar infarct in the margaret. > Interpreting Provider: Lida Echeverria MD on 08/08/2024 3:03 PM Narrative 08/08/2024 3:03 PM CDT PROCEDURE: MRI BRAIN WO CONTRAST, DATE/TIME OF EXAM: 08/08/2024 2:16 PM, LOCATION [facility] INDICATION: R53.1: Weakness R11.10: Vomiting, unspecified vomiting type, unspecified whether nausea present ADDITIONAL CLINICAL INFORMATION: Ordering Provider Reason For Exam: cva Technologist Note: Additional: TECHNIQUE: MRI of the brain was performed without intravenous contrast according to standard protocol. CONTRAST: COMPARISON: 08/07/2024. FINDINGS: The study is degraded by motion artifacts which can obscure abnormalities. No evidence of acute cerebral infarction is seen. No evidence of acute or chronic hemorrhage is identified. There is moderate cerebral volume loss with associated ex vacuo ventricular dilatation. No mass effect or midline shift is seen. Moderate periventricular and subcortical white matter FLAIR hyperintensities likely represent sequelae of chronic small vessel ischemic disease. A small chronic lacunar infarct in the margaret. The corpus callosum and sella appear normal. The posterior fossa, brainstem, and craniocervical junction appear normal. Other than bilateral cataract extractions, the visualized portions of the orbits, paranasal sinuses, and mastoids appear normal. Normal flow voids are demonstrated in the carotid arteries and basilar artery. The calvarium and visualized cervical spine appear normal. Procedure Note Lida Echeverria MD - 08/08/2024 PROCEDURE: MRI BRAIN WO CONTRAST, DATE/TIME OF EXAM: 08/08/2024 2:16 PM, LOCATION [facility] INDICATION: R53.1: Weakness R11.10: Vomiting, unspecified vomiting type, unspecified whether nausea present ADDITIONAL CLINICAL INFORMATION: Ordering Provider Reason For Exam: cva Technologist Note: Additional: TECHNIQUE: MRI of the brain was performed without intravenous contrast according to standard protocol. CONTRAST: COMPARISON: 08/07/2024. FINDINGS: The study is degraded by motion artifacts which can obscureabnormalities. No evidence of acute cerebral infarction is seen. No evidence of acuteor chronic hemorrhage is identified. There is moderate cerebral volume loss with associated ex vacuo ventricular dilatation. No mass effect ormidline shift is seen. Moderate periventricular and subcortical white matterFLAIR hyperintensities likely represent sequelae of chronic small vesselischemic disease. A small chronic lacunar infarct in the margaret. The corpuscallosum and sella appear normal. The posterior fossa, brainstem, andcraniocervical junction appear normal. Other than bilateral cataract extractions, the visualized portions ofthe orbits, paranasal sinuses, and mastoids appear normal. Normal flow voids are demonstrated in the carotid arteries and basilar artery. Thecalvarium and visualized cervical spine appear normal. IMPRESSION: 1. No acute intracranial process. Specifically, no acute infarct oracute intracranial hemorrhage. However, this study is significantly degradedby motion artifacts and poor image quality. 2. Presumed chronic small vessel ischemic disease of the brain with cerebral volume loss. A small chronic lacunar infarct in the margaret. > Interpreting Provider: Lida Echeverria MD on 08/08/2024 3:03 PM us Edwardo Kincaid MD MR ORDERABLES Final Result * (ABNORMAL) URINALYSIS REFLEX MICROSCOPIC REFLEX CULTURE (08/07/2024 7:03 PM CDT) Color UA Yellow Yellow, Straw 08/07/2024 7:20 PM [facility] Clarity UA Clear Clear 08/07/2024 7:20 PM [facility] Glucose UA Normal Normal 08/07/2024 7:20 PM [facility] Bilirubin UA Negative Negative 08/07/2024 7:20 PM [facility] Ketone UA Trace(A) Negative 08/07/2024 7:20 PM [facility] Specific [place] UA >1.050(H) 1.005 - 1.030 08/07/2024 7:20 PM [facility] Comment:Specific gravity res ults confirmed by refractometer. Blood UA Negative Negative 08/07/2024 7:20 PM CDT [facility] pH UA 6.5 5.0 - 9.0 pH 08/07/2024 7:20 PM [facility] Protein UA Negative Negative 08/07/2024 7:20 PM [facility] Urobilinogen UA 3.0(A) Normal mg/dL 08/07/2024 7:20 PM [facility] Nitrite UA Negative Negative 08/07/2024 7:20 PM [facility] Leukocyte UA 250 BERNARDO/uL(A) Negative 08/07/2024 7:20 PM [facility] RBC UA 0-2 0 - 5 # /hpf 08/07/2024 7:20 PM [facility] WBC UA 51-100(A) 0 - 5 # /hpf 08/07/2024 7:20 PM [facility] WBC Clumps UA Rare(A) None Seen /HPF 08/07/2024 7:20 PM [facility] Bacteria UA None Seen None Seen 08/07/2024 7:20 PM [facility] Squamous Epithelial Cells 0-2 0 - 5 /hpf 08/07/2024 7:20 PM [facility] Mucus UA 2+ /LPF 08/07/2024 7:20 PM T [facility] Hyaline Casts 3-5(A) 0 - 2 /LPF 08/07/2024 7:20 PM [facility] Urine URINE SPECIMEN OBTAINED BY SINGLE CATHETERIZATION OF URINARY BLADDER / Unknown Collection / Unknown 08/07/2024 7:03 PM CDT 08/07/2024 7:08 PM CDT us Edwardo Kincaid MD LAB - URINALYSIS ORDERABLES Fi nal Result [facility] [address] [place] [address], [facility] [phone] * (ABNORMAL) CULTURE URINE (08/07/2024 7:03 PM CDT) Culture Urine >100,000 CFU/mL Escherichia coli extended-spectr um beta-lactamase (ESBL)(A) TING 08/11/2024 1:23 AM T [facility] Urine URINE SPECIMEN OBTAINED BY SINGLE CATHETERIZATION OF URINARY BLADDER / Unknown Collection / Unknown 08/07/2024 7:03 PM CDT 08/07/2024 7:08 PM CDT Narrative [facility] - 08/11/2024 1:23 AM CDT Contact Precautions Required. Organism Antibiotic Method Susceptibility Escherichia coli extended-spectrum beta-lactamase (ESBL) Amikacin TING <=2 ug/mL: Susceptible Escherichia coli extended-spectrum beta-lactamase (ESBL) Ampicillin TING >=32 ug/mL: Resistant Escherichia coli extended-spectrum beta-lactamase (ESBL) Ampicillin-sulbactam TING >=32 ug/mL: Resistant Escherichia coli extended-spectrum beta-lactamase (ESBL) Cefazolin TING >=64 ug/mL: Resistant Escherichia coli extended-spectrum beta-lactamase (ESBL) Cefazolin-Urine (uncomplicated infections ONLY) TING >=64 ug/mL: Resistant Escherichia coli extended-spectrum beta-lactamase (ESBL) Cefepime TING 8 ug/mL: Susceptible - Dose Dependent Escherichia coli extended-spectrum beta-lactamase (ESBL) Ceftriaxone TING >=64 ug/mL: Resistant Escherichia coli extended-spectrum beta-lactamase (ESBL) Ciprofloxacin TING >=4 ug/mL: Resistant Escherichia coli extended-spectrum beta-lactamase (ESBL) Extended-Spectrum Beta-Lactamase TING POS ug/mL: Pos Escherichia coli extended-spectrum beta-lactamase (ESBL) Gentamicin TING <=1 ug/mL: Susceptible Escherichia coli extended-spectrum beta-lactamase (ESBL) Meropenem TING <=0.25 ug/mL: Susceptible Escherichia coli extended-spectrum beta-lactamase (ESBL) Piperacillin-tazobactam TING <=4 ug/mL: Susceptible Escherichia coli extended-spectrum beta-lactamase (ESBL) Tobramycin TING <=1 ug/mL: Susceptible Escherichia coli extended-spectrum beta-lactamase (ESBL) Trimethoprim-sulfamethoxa zole TING <=20 ug/mL: Susceptible Escherichia coli extended-spectrum beta-lactamase (ESBL) Fosfomycin KB Susceptible Comment: Extended-spectrum beta-lactamase (ESBL) producing organism. Beta-lactam/beta-lactamase inhibitor combinations may not be effective for treatment of bloodstream infections and other severe infections regardless of in vitro susceptibility testing results. Infectious Disease consult recommended. Contact precautions required. Urine breakpoints for cefazolin should only be used when treating uncomplicated UTIs including men and women without urologic abnormality, kidney stones, stents, nephrostomy tubes, signs/symptoms of systemic illness, or pelvic/perineal pain in men. Cefazolin results can be used to predict susceptibility to oral cephalosporins - cephalexin, cefprozil, cefaclor, cefuroxime, cefdinir, and cefpodoxime. For complicated UTIs, use alternative cefazolin susceptibility result above. Edwardo Kincaid MD LAB - MICROBIOLOGY ORDERABLES Final Result Performing Organization Address City/[facility]/ZIP Co de Phone Number [facility] [address] [place] [address], [facility] [phone] * TSH REFLEX FREE T4 (08/07/2024 3:54 PM CDT) Pathologist [facility] TSH 2.619 0.350 - 4.940 uIU/mL 08/07/2024 9:20 PM CDT [facility] Blood BLOOD SPECIMEN / Unknown Venipuncture / Unknown 08/07/2024 3:54 PM CDT 08/07/2024 4:01 PM CDT Result [facility] Bill Acuna MD LAB - CHEMISTRY ORDERABLES Fi nal Result Performing Organization Address City/[facility]/ZIP Co de Phone Number [address] [address], [facility] [phone] * C-REACTIVE PROTEIN (08/07/2024 3:54 PM CDT) C-Reactive Protein <0.5 <=0.5 mg/dL 08/07/2024 4:27 PM CDT [facility] Blood BLOOD SPECIMEN / Unknown Venipuncture / Unknown 08/07/2024 3:54 PM CDT 08/07/2024 4:01 PM CDT Bill Acuna MD LAB - CHEMISTRY ORDERABLES Fi nal Result [address] [address], [place] [phone] * ERYTHROCYTE SEDIMENTATION RATE (08/07/2024 3:54 PM CDT) Pathologist [facility] Erythrocyte Sedimentation Rate Westergren 9 0 - 20 MM/HR 08/07/2024 4:19 PM CDT [facility] Blood BLOOD SPECIMEN / Unknown Venipuncture / Unknown 08/07/2024 3:54 PM CDT 08/07/2024 4:01 PM CDT us Bill Acuna MD LAB - HEMATOLOGY ORDERABLES F inal Result Performing Organization Address [facility] Co de Phone Number [address] [address], [place] [phone] * TROPONIN-I HIGH SENSITIVE REFLEX 1HOUR (08/07/2024 3:52 PM CDT) [facility] Troponin I High Sensitive <3 <=35 ng/L 08/07/2024 4:37 PM CDT [facility] Delta Troponin I HS 08/07/2024 4:37 PM CDT [facility] Comment:Result exceeds linea rity range. A delta value is unable to be calculated. Blood BLOOD SPECIMEN / Unknown Venipuncture / Unknown 08/07/2024 3:52 PM CDT 08/07/2024 4:01 PM CDT us Edwardo Kincaid MD LAB - CHEMISTRY ORDERABLES Fin al Result Performing Organization Address [facility]/ZIP Co de Phone Number [address] [address], [facility] [phone] * BLOOD TYPE VERIFICATION (08/07/2024 3:50 PM CDT) Pathologist [facility] ABO Rh O POS 08/07/2024 4:3 7 PM CDT [facility] Blood Bank BLOOD SPECIMEN / Unknown Venipuncture / Unknown 08/07/2024 3:50 PM CDT 08/07/2024 4:00 PM CDT us Edwardo Kincaid MD LAB - BLOOD BANK ORDERABLES Fi nal Result [facility] [address] [place] [address], [place] [phone] * XR Chest 1Vw (08/07/2024 2:52 PM CDT) Anatomical Region Laterality Modality Chest Digital Radiogra phy 08/07/2024 2:39 PM CDT Narrative 08/07/2024 3:02 PM CDT PROCEDURE: XR CHEST 1VW, DATE/TIME OF EXAM: 08/07/2024 2:35 PM, LOCATION [facility] INDICATION: R53.1: Weakness R11.10: Vomiting, unspecified vomiting type, unspecified whether nausea present ADDITIONAL CLINICAL INFORMATION: Ordering Provider Reason For Exam: pna aspiration COMPARISON: X-ray chest 06/08/2021 TECHNIQUE: Frontal radiograph of the chest. FINDINGS/IMPRESSION: There is no airspace consolidation, pleural effusion, or pneumothorax. . Possible cardiomegaly. Upper mediastinal contours are normal. There is atherosclerotic calcification of the aorta. No acute bony abnormality. Report dictated by Drake Kaye MD, ([employer]let Stone Inserter). ITamar MD have personally reviewed and interpreted this examination/study. > Interpreting Provider: Tamar Ching MD on 08/07/2024 3:02 PM Procedure Note Tamar Ching MD - 08/07/2024 PROCEDURE: XR CHEST 1VW, DATE/TIME OF EXAM: 08/07/2024 2:35 PM, LOCATION [facility] INDICATION: R53.1: Weakness R11.10: Vomiting, unspecified vomiting type, unspecified whether nausea present ADDITIONAL CLINICAL INFORMATION: Ordering Provider Reason For Exam: pna aspiration COMPARISON: X-ray chest 06/08/2021 TECHNIQUE: Frontal radiograph of the chest. FINDINGS/IMPRESSION: There is no airspace consolidation, pleural effusion, or pneumothorax. . Possible cardiomegaly. Upper mediastinal contours are normal. There is atherosclerotic calcification of the aorta. No acute bony abnormality. Report dictated by Drake Kaye MD, (Pallet Stone Inserter). I, Tamar Ching MD have personally reviewed and interpreted this examination/study. > Interpreting Provider: Tamar Ching MD on 08/07/2024 3:02 PM Edwardo Kincaid MD DIAGNOSTIC IMAGING ORDERABLES Final Result * CT BRAIN - Stroke (08/07/2024 2:34 PM CDT) Anatomical Region Laterality Modality Head Computed Tomogra phy 08/07/2024 3:29 PM CDT Impressions 08/07/2024 3:39 PM CDT IMPRESSION: 1. No acute intracranial hemorrhage, territorial infarct or herniation. Severe chronic small vessel disease. Chronic lacunar infarcts of the bilateral basal ganglia. 2. Left parietal scalp hematoma without underlying skull fracture. > Interpreting Provider: Chuck Sol MD on 08/07/2024 3:39 PM Narrative 08/07/2024 3:[address] BRAIN STROKE Exam Date: 08/07/2024 2:35 PM EXAMINATION: Computed tomography (CT) of the head without contrast HISTORY: Code Stroke TECHNIQUE: CT of the head was performed without contrast according to standard protocol. COMPARISON: FINDINGS: No acute intra- or extra-axial fluid collections are identified. There is mild cerebral volume loss with associated ex vacuo ventricular dilatation. The basilar cisterns are patent. No mass effect or midline shift is seen. Chronic lacunar infarcts of the bilateral basal ganglia. The yi-white matter differentiation otherwise appears normal. Periventricular white matter hypoattenuation is indicative of chronic small vessel ischemic disease. There is vascular calcification of the carotid siphons and V4 segments of the bilateral vertebral arteries. The visualized portions of the orbits, paranasal sinuses, and mastoids appear normal. No acute fracture is identified. Left parietal scalp hematoma. Procedure Note Chuck Sol MD - 08/07/2024 CT BRAIN STROKE Exam Date: 08/07/2024 2:35 PM EXAMINATION: Computed tomography (CT) of the head without contrast HISTORY: Code Stroke TECHNIQUE: CT of the head was performed without contrast according to standard protocol. COMPARISON: FINDINGS: No acute intra- or extra-axial fluid collections are identified. Thereis mild cerebral volume loss with associated ex vacuo ventriculardilatation. The basilar cisterns are patent. No mass effect or midline shift isseen. Chronic lacunar infarcts of the bilateral basal ganglia. The yi-white matter differentiation otherwise appears normal. Periventricular white matter hypoattenuation is indicative of chronic small vessel ischemic disease. There is vascular calcification of the carotid siphons and V4 segments of the bilateral vertebral arteries. The visualized portionsof the orbits, paranasal sinuses, and mastoids appear normal. No acute fracture is identified. Left parietal scalp hematoma. IMPRESSION: 1. No acute intracranial hemorrhage, territorial infarct or herniation. Severe chronic small vessel disease. Chronic lacunar infarcts of the bilateral basal ganglia. 2. Left parietal scalp hematoma without underlying skull fracture. > Interpreting Provider: Chuck Sol MD on 08/07/2024 3:39 PM Byron Diaz MD CT ORDERABLES Final Result * CT ANGIO BRAIN NECK STROKE (08/07/2024 2:34 PM CDT) Anatomical Region Laterality Modality Head Computed Tomogra phy 08/07/2024 3:17 PM CDT Impressions 08/07/2024 3:43 PM CDT IMPRESSION: 1.Diffuse atherosclerotic disease of the internal carotid arteries leading to bilateral stenosis within the cavernous segments-moderate on the left, [id number] on the right. 2.No large vessel occlusions identified within the head or neck. 3.Multinodular thyroid with largest nodule measuring 4.4 x 3.7 x 6.3 cm the right thyroid, likely representing goiter, for which nonemergent thyroid ultrasound is recommended if not already performed. This report was dictated by Kevin Cuellar M.D. (/IR Resident). I, Chuck Sol MD have personally reviewed and interpreted this examination/study. > Interpreting Provider: Chuck Sol MD on 08/07/2024 3:43 PM Narrative 08/07/2024 3:43 PM CDT PROCEDURE: CT ANGIO BRAIN NECK STROKE, DATE/TIME OF EXAM: 08/07/2024 2:34 PM, LOCATION [facility] INDICATION: R53.1: Weakness ADDITIONAL CLINICAL INFORMATION: Ordering Provider Reason For Exam: Technologist Note: Additional: EXAMINATION: 1. Computed tomographic (CT) angiography of the head with contrast 2. CT angiography of the neck with contrast TECHNIQUE: CT of the head was performed without contrast according to standard protocol. Then CT angiography of the head and neck was obtained after the uneventful administration of intravenous contrast. Three dimensional postprocessing was performed by the technologist and sent to the workstation for review. CONTRAST: Isovue 370 75 mL COMPARISON: Same day noncontrast CT head FINDINGS: Non-angiographic findings: See same day CT head without contrast for nonangiographic findings of the head. There is a large multinodular thyroid with the largest nodule measuring 4.4 x 3.7 x 6.3 cm in the right thyroid. There are multiple prominent but not pathologically enlarged lymph nodes throughout the neck. Moderate to severe degenerative disc and joint disease is present within the cervical spine. Angiographic findings: NECK: Contrast is seen extending cranially through the right internal jugular vein, which may be secondary to patient's history of heart failure. No areas of central venous stenosis are identified within the imaged portions of the thorax. There is atherosclerotic disease of the aortic arch. The configuration of the brachiocephalic vessels is typical. There is scattered atherosclerotic calcification of the innominate and subclavian arteries. There is atherosclerotic disease in the right carotid bifurcation and origin of the right internal carotid artery with less than 50 percent focal stenosis. The right common and internal carotid arteries otherwise appear patent. There is atherosclerotic disease in the left carotid bifurcation and origin of the left internal carotid artery with less than 50 percent focal stenosis. The left common and internal carotid arteries otherwise appear patent. There is atherosclerotic disease in the cervical vertebral arteries without significant focal stenosis. HEAD: There is atherosclerotic disease involving the distal internal carotid arteries with moderate stenosis of the cavernous portion of the left internal carotid artery; mild to moderate stenosis of the cavernous portion of the right. The anterior cerebral arteries are patent. The middle cerebral arteries are patent. The posterior cerebral arteries are patent. There is atherosclerotic disease involving the distal vertebral arteries without significant focal stenosis. The basilar artery is patent patent. No aneurysms, spot sign, or signs of a high flow vascular malformation are identified. Procedure Note Chuck Sol MD - 08/07/2024 PROCEDURE: CT ANGIO BRAIN NECK STROKE, DATE/TIME OF EXAM: :34 PM, LOCATION [facility] INDICATION: R53.1: Weakness ADDITIONAL CLINICAL INFORMATION: Ordering Provider Reason For Exam: Technologist Note: Additional: EXAMINATION: 1. Computed tomographic (CT) angiography of the head with contrast 2. CT angiography of the neck with contrast TECHNIQUE: CT of the head was performed without contrast according to standard protocol. Then CT angiography of the head and neck was obtained after the uneventful administration of intravenous contrast. Three dimensional postprocessing was performed by the technologist and sent to the workstation for review. CONTRAST: Isovue 370 75 mL COMPARISON: Same day noncontrast CT head FINDINGS: Non-angiographic findings: See same day CT head without contrast for nonangiographic findings ofthe head. There is a large multinodular thyroid with the largest nodule measuring4.4 x 3.7 x 6.3 cm in the right thyroid. There are multiple prominent butnot pathologically enlarged lymph nodes throughout the neck. Moderate tosevere degenerative disc and joint disease is present within the cervicalspine. Angiographic findings: NECK: Contrast is seen extending cranially through the right internal jugular vein, which may be secondary to patient's history of heart failure. No areas of central venous stenosis are identified within the imagedportions of the thorax. There is atherosclerotic disease of the aortic arch. The configurationof the brachiocephalic vessels is typical. There is scatteredatherosclerotic calcification of the innominate and subclavian arteries. There is atherosclerotic disease in the right carotid bifurcation and origin ofthe right internal carotid artery with less than 50 percent focal stenosis.The right common and internal carotid arteries otherwise appear patent.There is atherosclerotic disease in the left carotid bifurcation and origin of the left internal carotid artery with less than 50 percent focalstenosis. The left common and internal carotid arteries otherwise appear patent. There is atherosclerotic disease in the cervical vertebral arterieswithout significant focal stenosis. HEAD: There is atherosclerotic disease involving the distal internal carotid arteries with moderate stenosis of the cavernous portion of the left internal carotid artery; mild to moderate stenosis of the cavernousportion of the right. The anterior cerebral arteries are patent. The middle cerebral arteries are patent. The posterior cerebral arteries arepatent. There is atherosclerotic disease involving the distal vertebral arteries without significant focal stenosis. The basilar artery is patent patent.No aneurysms, spot sign, or signs of a high flow vascular malformation are identified. IMPRESSION: 1.Diffuse atherosclerotic disease of the internal carotid arteriesleading to bilateral stenosis within the cavernous segments-moderate on theleft, [id number] on the right. 2.No large vessel occlusions identified within the head or neck. 3.Multinodular thyroid with largest nodule measuring 4.4 x 3.7 x 6.3 cmthe right thyroid, likely representing goiter, for which nonemergent thyroid ultrasound is recommended if not already performed. This report was dictated by Kevin Cuellar M.D. (DR/IR Resident). I, Chuck Sol MD have personally reviewed and interpreted this examination/study. > Interpreting Provider: Chuck Sol MD on 08/07/2024 3:43 PM [address] MD [address] ORDERABLES Final Result * PT-INR [facility] (08/07/2024 2:28 PM CDT) PT 13.9 12.1 - 14.8 Seconds 08/07/2024 3:00 PM CDT [facility] INR 1.1 See Comment 08/07/2024 3:00 PM CDT [facility] Comment:The suggested therap eutic range for standard coumadin (warfarin) therapy is an INR of 2.0-3.0. For high-risk patients (Mechanical Mitral Valve Prosthesis, etc.), the suggested prophylactic therapeutic range is an INR of 2.5-3.5. Blood BLOOD SPECIMEN / Unknown Venipuncture / Unknown 08/07/2024 2:28 PM CDT 08/07/2024 2:32 PM CDT Byron Diaz MD LAB - COAGULATION ORDERABLES Final Result [facility] [address] [place] [address], [facility] [phone] * LACTIC ACID BLOOD REFLEX TO REPEAT (08/07/2024 2:28 PM CDT) Lactic Acid-Stat 1.5 <=2.0 mmol/L 08/07/2024 3:04 PM CDT [facility] Blood BLOOD SPECIMEN / Unknown Venipuncture / Unknown 08/07/2024 2:28 PM CDT 08/07/2024 2:35 PM CDT Edwardo Kincaid MD LAB - CHEMISTRY ORDERABLES Fin al Result Performing Organization Address City/[facility]/ZIP Co de Phone Number [address] [address], [place] [phone] * TROPONIN-I HIGH SENSITIVE BASELINE + 1HR (08/07/2024 2:28 PM CDT) [facility] Troponin I High Sensitive <3 <=35 ng/L 08/07/2024 3:13 PM CDT [facility] Blood BLOOD SPECIMEN / Unknown Venipuncture / Unknown 08/07/2024 2:28 PM CDT 08/07/2024 2:35 PM CDT Edwardo Kincaid MD LAB - CHEMISTRY ORDERABLES Fin al Result Performing Organization Address [facility] Co de Phone Number [address] [address], [facility] [phone] * TYPE + SCREEN PANEL (08/07/2024 2:28 PM CDT) [facility] Antibody Screen NEG 3:31 PM CDT [facility] ABO Rh O POS 08/07/2024 3:31 PM CDT [facility] Blood Bank BLOOD SPECIMEN / Unknown Venipuncture / Unknown 08/07/2024 2:28 PM CDT 08/07/2024 2:38 PM CDT Byron Diaz MD LAB - BLOOD BANK ORDERABLES Final Result Performing Organization Address [facility]/ZIP Co de Phone Number [facility] [address] [place] [phone], [facility] [phone] * (ABNORMAL) CBC W AUTO DIFFERENTIAL (08/07/2024 2:28 PM CDT) [facility] WBC 4.1 4.0 - 10.7 x10E9/L 08/07/2024 2:38 PM [facility] RBC Count 3.78(L) 4.30 - 5.80 x10E12/L 08/07/2024 2:38 PM [facility] Hemoglobin 12.1(L) 13.3 - 17.5 g/dL 08/07/2024 2:38 PM [facility] Hematocrit 34.7(L) 38.7 - 51.1 % 08/07/2024 2:38 PM [facility] MCV 91.8 80.0 - 98.0 fL 08/07/2024 2:38 PM [facility] MCH 32.0 26.7 - 33.6 pg 08/07/2024 2:38 PM [facility] MCHC 34.9 31.7 - 36.3 g/dL 08/07/2024 2:38 PM [facility] RDW-CV 12.7 11.3 - 14.8 % 08/07/2024 2:38 PM [facility] Platelet Count 114(L) 150 - 420 x10E9/L 08/07/2024 2:38 PM [facility] MPV 10.1 7.8 - 11.4 fL 08/07/2024 2:38 PM [facility] Neutrophil % 63.9 41.0 - 74.0 % 08/07/2024 2:38 PM [facility] Lymphocyte % 28.0 17.0 - 47.0 % 08/07/2024 2:38 PM [facility] Monocyte % 5.4 3.0 - 11.0 % 08/07/2024 2:38 PM [facility] Eosinophil % 2.0 0.0 - 7.0 % 08/07/2024 2:38 PM [facility] Basophil % 0.5 0.0 - 1.6 % 08/07/2024 2:38 PM [facility] Immature Granulocytes % 0.2 0.0 - 1.0 % 08/07/2024 2:38 PM [facility] Neutrophil Absolute 2.60 1.60 - 7.50 x10E9/L 08/07/2024 2:38 PM [facility] Lymphocyte Absolute 1.14 1.00 - 4.40 x10E9/L 08/07/2024 2:38 PM [facility] Monocyte Absolute 0.22 0.15 - 1.00 x10E9/L 08/07/2024 2:38 PM [facility] Eosinophil Absolute 0.08 0.00 - 0.60 x10E9/L 08/07/2024 2:38 PM [facility] Basophil Absolute 0.02 0.00 - 0.13 x10E9/L 08/07/2024 2:38 PM [facility] Blood BLOOD SPECIMEN / Unknown Venipuncture / Unknown 08/07/2024 2:28 PM CDT 08/07/2024 2:35 PM CDT us Byron Diaz MD LAB - HEMATOLOGY ORDERABLES Final Result Performing Organization Address City/State/[facility] Co de Phone Number [facility] [address] [place] [address] [phone] * (ABNORMAL) COMPREHENSIVE METABOLIC PANEL (08/07/2024 2:28 PM CDT) BUN 12 7 - 26 mg/dL 08/07/2024 3:07 PM [facility] Creatinine 1.00 0.71 - 1.16 mg/dL 08/07/2024 3:07 PM [facility] Sodium 142 136 - 145 mmol/L 08/07/2024 3:07 PM [facility] Potassium 3.4(L) 3.5 - 4.5 mmol/L 08/07/2024 3:07 PM [facility] Chloride 109(H) 98 - 107 mmol/L 08/07/2024 3:07 PM [facility] CO2 27 22 - 29 mmol/L 08/07/2024 3:07 PM [facility] Glucose 146(H) 70 - 99 mg/dL 08/07/2024 3:07 PM [facility] Calcium 8.0(L) 8.4 - 10.2 mg/dL 08/07/2024 3:07 PM [facility] Protein Total 5.0(L) 6.0 - 8.3 g/dL 08/07/2024 3:07 PM [facility] Albumin 2.7(L) 3.4 - 5.0 g/dL 08/07/2024 3:07 PM [facility] Bilirubin Total 0.6 0.2 - 1.2 mg/dL 08/07/2024 3:07 PM [facility] Alkaline Phosphatase 70 40 - 150 U/L 08/07/2024 3:07 PM [facility] ALT 11 5 - 55 U/L 08/07/2024 3:07 PM [facility] AST 16 5 - 34 U/L 08/07/2024 3:07 PM [facility] Anion Gap 6 6 - 16 08/07/2024 3:07 PM [facility] BUN/Creatinine Ratio 12 7 - 23 08/07/2024 3:07 PM [facility] Osmolality Calculated 296(H) 275 - 295 mOsm/kg 08/07/2024 3:07 PM [facility] Albumin/Globulin Ratio 1.2 1.1 - 2.3 08/07/2024 3:07 PM [facility] eGFR by CKD-EPI 79(L) >=90 mL/min/1.7 3 m2 08/07/2024 3:07 PM [facility] Blood BLOOD SPECIMEN / Unknown Venipuncture / Unknown 08/07/2024 2:28 PM CDT 08/07/2024 2:35 PM T us Byron Diaz MD LAB - CHEMISTRY ORDERABLES F inal Result [address] [address], [facility] [phone] * LIPASE BLOOD (08/07/2024 2:28 PM CDT) Lipase 11 8 - 78 U/L 08/07/2024 3:07 PM [facility] Blood BLOOD SPECIMEN / Unknown Venipuncture / Unknown 08/07/2024 2:28 PM CDT 08/07/2024 2:35 PM CDT Narrative [facility] - 08/07/2024 3:07 PM CDT Lipase results from the [employer] Al[employer] analyzer may not be comparable with other methodologies. us Edwardo Kincaid MD LAB - CHEMISTRY ORDERABLES Fin al Result Performing Organization Address City/[facility]/ZIP Co de Phone Number [address] [address], [place] [phone] * INR WHOLE BLOOD - POINT OF CARE (IP) STROKE (08/07/2024 2:25 PM CDT) INR 1.1 0.9 - 1.2 08/08/2024 3:34 AM CDT [facility] Device [id number] 08/08/2024 3:34 AM CDT [facility] Superintendent Sales ID [id number] 08/08/2024 3:34 AM CDT [facility] Blood BLOOD SPECIMEN / Unknown 08/07/2024 2:25 PM CDT 08/08/2024 3:34 AM CDT us Provider Unknown LAB - POINT OF CARE ORDERABLES Final Result Performing Organization Address City/[facility]/ZIP Co de Phone Number [address] [address], [place] [phone] * CREATININE - POCT INTERFACED (08/07/2024 2:25 PM CDT) Creatinine POCT 0.87 0.30 - 1.30 mg/dL 08/07/2024 2:27 PM CDT [facility] eGFR >90 >=90 mL/min/1.7 3 m2 08/07/2024 2:27 PM CDT [facility] Blood BLOOD SPECIMEN / Unknown 08/07/2024 2:25 PM CDT 08/07/2024 2:27 PM CDT us Provider Unknown LAB - POINT OF CARE ORDERABLES Final Result [facility] [address] [place] [address], [place] [phone] * (ABNORMAL) GLUCOSE - POINT OF CARE (08/07/2024 2:24 PM CDT) Glucose WB/POC 147(H) 70 - 99 mg/dL 08/07/2024 2:24 PM CDT [facility] Specimen Type Cap Fingerstick 2024 2:24 PM CDT [facility] Blood BLOOD SPECIMEN / Unknown 08/07/2024 2:24 PM CDT 08/07/2024 2:24 PM CDT us Provider Unknown LAB - POINT OF CARE ORDERABLES Final Result Performing Organization Address [facility]/ZIP Co de Phone Number [address] [address], [place] [phone] from Last 3 Months Additional Health Concerns Infection Onset Date Last Indicated ESBL GNR 08/07/2024 08/07/2024 Insurance MEDICARE [facility] ANTHJACOB ANTHEM Advance Directives Documents on File Type Date Recorded Patient Web Solutions Architect Expl anation Adv Directive/Living Will/POA 08/07/2024 * LIMITED RESUSCITATION-PRIOR AND AFTER ARREST (Latest Code Status on File) Date Activated Date Inactivated Comments 08/07/2024 8:10 PM 08/11/2024 8:41 PM Question Answer Comments Limited Resuscitation: No Chest Compress ionNo Intubation, No Invasive Ventilation * LIMITED RESUSCITATION-PRIOR AND AFTER ARREST Date Activated Date Inactivated Comments 08/07/2024 4:22 PM 08/07/2024 8:10 PM Question Answer Comments Limited Resuscitation: No Chest Compress ionNo Intubation, No Invasive Ventilation Care Teams [place] Relationship Specialty Start Date End Date None, Physician PCP - General 08/07/24
--- OUTSIDE RECORDS SUMMARY | 2024-08-14 00:04 | XMS_ITS | Clinical Summary ---
Author Organization [facility] D Address [address] [place] [address] Care Team Providers Care Parts Assembler Name Role Phone Jean-Claude Crawford MD Unavailable [phone] Jessie Delvalle MD Unavailable + Sandip Barone MD Unavailable [phone] Carey Dorsey ETHANOL MAINTENANCE MECHANIC Primary Care Provi jovanny Allergies Active Allergy [...] fall. Discussed with his charge nurse. The Jiahe and his at length. There has been [...] as tolerated his incisions are well healed. Braenn are out. He is doing well with [...] wounds have no more redness. At all. [place] are in place incision appears to be [...] dose. Assessment & Plan (06/15/2020 2:29 PM CHIPPING MACHINE OPERATOR): Rates rapid today however, states not rapid [...] BRENNON Assessment & Plan (06/15/2020 2:28 PM CHIPPING MACHINE OPERATOR): Previously mild last assessed in July last year, likely tachycardia mediated but significant risk factors for CAD in no recent ischemic evaluation. I would favor pharmacologic stress SPECT. Seems to be tolerating current guideline medical therapy. Needs to have a follow-up BMP. Reassess LV function with echo. Further recommendations forthcoming. Cholecystitis 06/14/2020 Overview (06/14/2020): Added automatically from request for surgery [id number] DVT (deep venous thrombosis) 02/20/2020 Intra-abdominal abscess [...] History Medical History Date Comments Atrial fibrillation (HCC) Hypertension Hyperlipidemia CHF (congestive heart failure) (HCC) GERD (gastroesophageal reflu x disease) BPH (benign prostatic hyperplasia) TIA (transient ischemic attack) Cholecystitis Blind legally blind Chronic anemia Acute cholecystitis Anxiety CHF (congestive heart failure) (HCC) BPH (benign prostatic hyperplasia) Alcohol use [...] often do you attend chur ch or rastafarian services? Never 07/31/2022 Do you [...] on file Legal Sex Male 9:10 PM CHIPPING MACHINE OPERATOR Gender Identity Not on file Sexual Orientation Not on file Obstetrics History Last Filed Vital Signs Vital Sign Reading Time Taken Comments Blood Pressure 114/82 05/15/2023 12:14 PM CHIPPING MACHINE OPERATOR Pulse 85 05/15/2023 12:14 PM CHIPPING MACHINE OPERATOR Temperature 36.1 C (97 F) 08/29/2022 10:02 AM CDT Respiratory Rate 19 08/29/2022 10:02 AM CDT Oxygen Saturation 90% 05/15/2023 12:14 PM CHIPPING MACHINE OPERATOR Inhaled Oxygen Concentration - - Weight 81.6 kg (180 lb) 05/15/2023 12:14 PM CHIPPING MACHINE OPERATOR Height 180.3 cm (5' 11 ) 05/15/2023 12:14 PM CHIPPING MACHINE OPERATOR Body Mass Index 25.1 05/15/2023 12:14 PM CHIPPING MACHINE OPERATOR Plan of Treatment Health Maintenance Due Date Last Done Comments Colon Cancer Screening-Colonoscopy 1950 Depression Screening 1951 DTaP/Tdap/Td Vaccine (1 - Tdap) 1962 Hepatitis B Screening 1969 Pneumococcal vaccine 65+ (1 of 2 - PCV) 1970 Lung Cancer Screening 2001 Zoster Vaccine (1 of 2) 2001 Well Visit 65+ 2016 Fall Risk Assessment 08/30/2023 08/29/2022 Influenza Vaccine (#1) 2023 02/20/2020 Abdominal Aortic Aneurysm (AAA) Screen Completed , 03/26/2020 Hepatitis C Screening Completed 06/12/2021 Medical Devices Implanted Type Area Ferris Wheel Attendant Device Identifier Shelf Expiration Date Model / Serial / Lot [employer] [place] Watchman Flx Procedure Device [id number] - S0 - [id number] Implanted:Qty: 1 on 07/17/2022 by Pedro Luis Mccormack MD at [facility] Left Atrial Appendage Occluder N/A: Atrial Appendage [employer] [place] 04/24/2025 [id number] C / 0 / [id number] Das [employer] Nephew/Richco/O rtho [id number] n 44cm 13mm Left Intertrochanter 130d 1.5mm Nail - [id number] Implanted:Qty: 1 on 07/04/2021 by Jessie Delvalle MD at [facility] Left: Femur [employer]Rich[employer] /Ortho 09/15/2030 [id number] / / [employer]/O rtho Intertan 4.5mm 95mm 90mm Lag Compression Integrated Interlocking [id number] - [id number] Implanted:Qty: 1 on 07/04/2021 by Jessie Delvalle MD at [facility] Left: Femur [employer] /Ortho 05/14/2031 [id number] / / [employer]Rich[employer]/O rtho [id number] 5mm 52.5mm Low Profile Internal Hex Femur Screw Bone Trigen - [id number] Implanted:Qty: 1 on 07/04/2021 by Jessie Delvalle MD at [facility] Left: Femur [employer]Rich[employer] /Ortho [id number] / / [employer]Rich[employer]/O rtho [id number] Trigen 5mm 62.5mm Low Profile Femur Screw Bone - [id number] Implanted:Qty: 1 on 07/04/2021 by Jessie Delvalle MD at [facility] Left: Femur [employer]Rich[employer] /Ortho [id number] / / [employer]/O rtho Intertan 11.5mm 20cm Trochanteric 125d Nail Intramedullary [id number] - [id number] Implanted:Qty: 1 on 10/08/2021 by Miguel Flores MD at [facility] Right: Femur [employer]Rich[employer] /Ortho [id number] 09/21/2030 [id number] / / [id number] [employer]/O rtho Intertan 11mm 90mm Lag Subtrochanter Screw Bone Titanium [id number] - [id number] Implanted:Qty: 1 on 10/08/2021 by Miguel Flores MD at [facility] Right: Femur [employer] /Ortho [id number] 04/21/2030 [id number] / / [id number] Sandoval V[employer] Device Clsr Perclose Prostyle Sut-Mediatd Closure-Repair Sys [id number] - S0 - [id number] Implanted:Qty: 1 on 07/17/2022 by Pedro Luis Mccormack MD at [facility] [employer] 04/07/2024 [id number] / 0 / [id number] [employer] Device Clsr Perclose Prostyle Sut-Mediatd Closure-Repair Sys 74300-86 - S0 - [id number] Implanted:Qty: 1 on 07/17/2022 by Pedro Luis Mccormack MD at [facility] [employer] 04/07/2024 [id number] / 0 / [id number] Procedures Procedure Name Priority Date/Time Associated Diagnosis Comments HEPATITIS PANEL, ACUTE Routine 06/12/2021 4:34 PM CHIPPING MACHINE OPERATOR CT ABDOMEN PELVIS W CONTRAST Schedule Routine, Read Routine (OP Routine) 06/13/2020 12:13 PM CHIPPING MACHINE OPERATOR Cholecystitis from Last 3 Months or Most Recently Relevant to Health Maintenance Results * Hepatitis panel, acute (06/12/2021 4:34 PM CHIPPING MACHINE OPERATOR) Hep A IgM Nonreactive Nonreactive [facility] Comment: Interpretive Data: If Hep A IgM Ab is reported as Equivocal, a new sample should be drawn in two weeks for testing. Current interpretive data was last revised on 19. Hep B core IgM Nonreactive Nonreactive [facility] Comment: Interpretive Data If HepB Core IgM Ab is reported as Equivocal, a new sample should be drawn in two weeks for testing. Current interpretive data was last revised on 19. Hep C Ab Nonreactive Nonreactive [facility] Comment:Antibodies to HCV no t detected. Does NOT exclude the possibility of recent exposure to HCV. HepBsAg Nonreactive Nonreactive [facility] Blood 06/12/2021 4:34 PM CHIPPING MACHINE OPERATOR 06/12/2021 4:44 PM CHIPPING MACHINE OPERATOR Romy Trent NP LAB MICROBIOLOGY - GENER AL ORDERABLES Edited Result - Final [facility] Department [place] [address] * CT Abdomen Pelvis W Contrast (06/13/2020 12:13 PM CHIPPING MACHINE OPERATOR) Anatomical Region Laterality Modality Body N/A Computed Tomogra phy 06/13/2020 12:3 2 PM CHIPPING MACHINE OPERATOR Addenda Addendum by Stepan Scott MD on 07/26/2020 3:48 PM CDT ADDENDUM: To correct the title and technique of this exam, the exam performed was a CT of the abdomen and pelvis with intravenous contrast. The chest was not scanned. Electronically signed by: Stepan Scott M.D. Impressions 06/13/2020 12:32 PM CHIPPING MACHINE OPERATOR 1. Interval decrease in size of an abscess extending from the gallbladder fossa the anterior abdominal wall. 2. Extensive colonic diverticulosis. Mild thickening of the right hemicolon may be related to chronic diverticulitis. 3. Small pleural and pericardial effusions. Electronically signed by: Stepan Scott M.D. Narrative 06/13/2020 12:32 PM CHIPPING MACHINE OPERATOR EXAMINATION: Computed tomography of the chest, abdomen [...] Advance Directives For more information, please contact: [phone] Documents on File Type Date Recorded Patient Customer Accounts Advisor Expl anation ADVANCE DIRECTIVE 07/29/2022 11:00 PM Artemio r of [employer] ADVANCE DIRECTIVE 07/10/2021 11:03 AM POWER OF POULTRY KILLER-[employer]ICAL ADVANCE DIRECTIVE 06/21/2021 6:25 PM POA ADVANCE [...] Relationship Healthcare Agent Relationshi p Communication Raine Guajardo Daughter Health Care Agent Care Teams Parts Assembler Relationship Specialty Start Date End Date Carey Dorsey NP [address] [address] PCP - General Family Medicine 05/15/23 Jean-Claude Crawford MD [address] [place] [address] Family Medicine 04/12/20 Jessie Delvalle MD [address] [place] [address] Orthopedic Surgery 07/07/21 Sandip Barone MD [address] [address] Consulting Physician Neurosurgery 07/07/21
--- NOTE | 2024-08-14 00:23 | ED_ITS ---
HPI - General Adult General Chief complaint: Altered Mental Status Stated complaint: ALTERED LOC/LETHARGIC Time Seen by Provider: 08/13/24 21:59 Source: patient Mode of arrival: EMS Limitations: clinical condition History of Present Illness HPI narrative: 74-year-old with a history of CVA, atrial fibrillation, dementia, CHF with a preserved ejection fraction, [facility] with a complains of weakness ,decreased oral intake since this morning. Patient upon arrival to the ER has been complains. Related Data Home Medications ?Medication ?Instructions ?Recorded ?Confirmed ?Last Taken ?Type metoprolol tartrate 50 mg tablet 100 mg PO Q12HR 01/25/21 04/01/24 Unknown History terazosin 10 mg capsule 10 mg PO QAM 06/09/21 04/01/24 Unknown History Lactobacillus acidoph-L.bulgaricus 1 tablet PO BID 04/12/23 04/01/24 Unknown History 1 million cell tablet acetaminophen 325 mg tablet 650 mg PO Q4H PRN Pain (Scale 04/12/23 04/01/24 Unknown History Score 1-3) albuterol sulfate 2.5 mg/3 mL 2.5 mg inhalation Q6H PRN Wheezing 04/12/23 04/01/24 Unknown History (0.083 %) solution for nebulization aspirin 81 mg tablet,delayed 81 mg PO DAILY 04/12/23 04/01/24 Unknown History release atorvastatin 10 mg tablet 10 mg PO HS 04/12/23 04/01/24 Unknown History fluticasone 100 mcg-salmeterol 50 1 ea inhalation QAM 04/12/23 04/01/24 Unknown History mcg/dose blistr powdr for inhalation (Wixela Inhub) folic acid 1 mg tablet 1 mg PO QAM 04/12/23 04/01/24 Unknown History nystatin 100,000 unit/gram topical 1 applic topical Q12H PRN reddness 04/12/23 04/01/24 Unknown History powder omeprazole 20 mg capsule,delayed 20 mg PO QAM 04/12/23 04/01/24 Unknown History release ramelteon 8 mg tablet 8 mg PO QHS 04/12/23 04/01/24 Unknown History sennosides 8.6 mg tablet (senna) 8.6 mg PO BID 04/12/23 04/01/24 Unknown History amlodipine 5 mg tablet 5 mg PO QAM 04/13/23 04/01/24 Unknown History cholecalciferol (vitamin D3) 125 125 mcg PO EVERY OTHER DAY 10/15/23 04/01/24 Unknown History mcg (5,000 unit) capsule escitalopram oxalate 5 mg tablet 5 mg PO DAILY depression 10/15/23 04/01/24 Unknown History losartan 50 mg tablet (Cozaar) 100 mg PO HS 10/15/23 04/01/24 Unknown History Allergies Allergy/AdvReac Type Severity Reaction Status Date / Time Penicillins AdvReac Unknown Unknown Verified 04/01/24 17:05 Review of Systems 2 Constitutional: Constitutional: Reports no additional constitutional complaints Eyes: Eyes: Reports no additional eye complaints ENT: Reports system reviewed and no additional complaints, except as documented Cardiovascular: Cardiovascular: Reports no additional cardiovascular complaints Respiratory: Respiratory: Reports no additional respiratory complaints Gastrointestinal: Gastrointestinal: Reports no additional gastrointestinal complaints Genitourinary: Genitourinary: Reports no additional male genitourinary complaints Integumentary/Breasts: Skin/Breast: Reports system reviewed and no additional complaints, except as docu Neurologic: Reports system reviewed and no additional complaints, except as documented [facility] Past Medical History Medical History Heart failure with preserved ejection fraction Gastroesophageal reflux disease Retinal histoplasmosis Chronic obstructive pulmonary disease Benign prostatic hyperplasia Choledocholithiasis Anxiety Chronic anemia Alcohol abuse Atrial fibrillation (07/2019) Acute cholecystitis treated with antibiotic therapy, no cholecystectomy due to being a poor surgical candidate 10/08/2019 - returned to hospital with intra-abdominal abscess in the gallbladder fossa and extending around liver - thought to be related to gallbladder perforation. Treated with antibiotics and percutaneous drainage x 3. History of TIAs Hyperlipidemia Vitamin D deficiency Essential hypertension Dementia Surgical History Surgical History History of vasectomy History of bilateral cataract extraction History of cholecystectomy Family History Family History Sibling Polio Father Lung cancer Mother Hypertension Social History Social History Social History: Surrogate medical decision maker: Latha Redman, daughter. Code status: Full code. Smoking packs per day: 1 Smoking cigarettes per day: 20.0 Years smoked: 64 Smoking pack-years: 64.00 Smoking status: Former smoker Tobacco type: cigarettes Second hand tobacco smoke exposure: Yes Smoking end date: 10/20/19 Additional smoking assessment comments: recalled from previous hx Alcohol intake: former Drinks per week: 21 Substance use: never Substance use type: does not use Other substance usage details: Last drink was 2 years ago. 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 HEAD: Normocephalic, atraumatic. EYES: PERRLA and EOMI. ENT: Nares clear, no rhinorrhea or epistaxis. Mucous membranes moist. NECK: Supple. CHEST: Clear to auscultation. No respiratory distress. HEART: Bradycardic ABDOMEN: Soft, nontender, nondistended, normal active bowel sounds. EXTREMITIES: Normal range of motion. No edema. SKIN: Warm, dry, no rash. NEURO: No focal deficits. Alert PSYCH: Normal mood and affect. Course Course Emergency Course: Patient comfortably resting informed him about his lab work, will discharge back to the [facility] . Vital Signs Vital signs: Vital Signs Temperature 36.7 C 08/13/24 21:58 Pulse Rate 65 08/13/24 21:58 Respiratory Rate 18 08/13/24 21:58 Blood Pressure 130/69 08/13/24 21:58 Pulse Oximetry 95 08/13/24 21:58 Oxygen Delivery Room Air 08/13/24 21:58 Temperature 36.7 C 08/13/24 21:58 Pulse Rate 65 08/13/24 21:58 Respiratory Rate 18 08/13/24 21:58 Blood Pressure 130/69 08/13/24 21:58 Pulse Oximetry 96 08/13/24 22:29 Oxygen Delivery Room Air 08/13/24 22:29 Medical Decision Making MDM Narrative Medical decision making narrative: Dehydration, UTI, sepsis Medical Records Medical records reviewed: Yes I reviewed the external patient's medical records. Vital Signs Vital Signs: Vital Signs Temperature 36.7 C 08/13/24 21:58 Pulse Rate 65 08/13/24 21:58 Respiratory Rate 18 08/13/24 21:58 Blood Pressure 130/69 08/13/24 21:58 Pulse Oximetry 95 08/13/24 21:58 Oxygen Delivery Room Air 08/13/24 21:58 Temperature 36.7 C 08/13/24 21:58 Pulse Rate 65 08/13/24 21:58 Respiratory Rate 18 08/13/24 21:58 Blood Pressure 130/69 08/13/24 21:58 Pulse Oximetry 96 08/13/24 22:29 Oxygen Delivery Room Air 08/13/24 22:29 Lab Data 08/13/24 22:32 08/13/24 22:38 Labs: Lab Results 08/13/24 08/13/24 08/13/24 Range/Units 22:32 22:38 22:39 WBC 5.0 (4.5-10.0) K/mm3 RBC 3.82 L (4.6-6.20) M/mm3 Hgb 11.9 L (14.0-18.0) g/dL Hct 36.3 L (42.0-52.0) % MCV 95.0 (80-100) fl MCH 31.2 (26-34) pg MCHC 32.8 (32-36) g/dl RDW 13.4 (11.5-14.5) % Plt Count 126 L (150-375) k/mm3 MPV 10.8 H (7.4-10.4) fl Immature Gran % (Auto) 0.4 (0-0.5) % Neut % (Auto) 59.8 (45.5-73.1) % Lymph % (Auto) 30.4 (18.3-44.2) % [place] % (Auto) 6.2 (2.6-8.5) % Eos % (Auto) 2.8 (0-4.4) % Baso % (Auto) 0.4 (0.2-1.2) % Lymph # (Auto) 1.52 (0.9-3.2) K/mm3 [place] # (Auto) 0.3 (0.1-0.6) K/mm3 Eos # (Auto) 0.1 (0-0.3) K/mm3 Baso # (Auto) 0.0 (0.0-0.1) K/mm3 Abs Immat Gran (auto) 0.02 (0.00-0.031) K/mm3 Absolute Neuts (auto) 3.0 (1.3-6.7) K/mm3 Absolute Nucleated RBC 0.000 (0.0-0.012) K/mm3 Nucleated RBC % 0.0 (0.0-0.2) % % Immature Plt Fraction 2.4 (0.9-11.2) % PT 14.4 (11.1-14.7) Seconds INR 1.1 Sodium 139 (137-145) mmol/L Potassium 3.4 (3.4-5.0) mmol/L Chloride 107 (98-107) mmol/L Carbon Dioxide 28 (22-30) mmol/L Anion Gap 4 (4-12) mmol/L BUN 16 (9-20) mg/dL Creatinine 1.01 (0.7-1.3) mg/dL Estim Creat Clear Calc Not Reportable Estimated GFR > 60 (59 - ) Glucose 103 (65-110) mg/dL Lactic Acid 0.8 (0.7-2.0) mmol/L Calcium 8.4 (8.4-10.2) mg/dL Total Bilirubin 0.5 (0.2-1.3) mg/dL AST 30 (17-59) U/L ALT 13 (6-50) U/L Alkaline Phosphatase 64 (38-126) U/L Total Protein 6.0 L (6.3-8.2) g/dL Albumin 3.1 L (3.5-5.1) g/dL Urine Color (Yellow) Urine Appearance (Clear) Urine pH (5.0-9.0) Ur Specific [place] (1.001-1.035) Urine Protein (Negative) mg/dL Urine Glucose (UA) (Negative) mg/dL Urine Ketones (Negative) mg/dL Ur Blood (Man) (Negative) Urine Nitrate (Negative) Urine Bilirubin (Negative) Urine Urobilinogen (<2.0) mg/dL Add Ur Microanalysis Leukocyte Esterase Rfl (Negative) BERNARDO/UL Urine RBC (0-2) /hpf Urine WBC (0-3) /hpf Ur Squamous Epith Cells (Few) /hpf Urine Bacteria /hpf Urine Casts 08/13/24 Range/Units 23:21 WBC (4.5-10.0) K/mm3 RBC (4.6-6.20) M/mm3 Hgb (14.0-18.0) g/dL Hct (42.0-52.0) % MCV (80-100) fl MCH (26-34) pg MCHC (32-36) g/dl RDW (11.5-14.5) % Plt Count (150-375) k/mm3 MPV (7.4-10.4) fl Immature Gran % (Auto) (0-0.5) % Neut % (Auto) (45.5-73.1) % Lymph % (Auto) (18.3-44.2) % [place] % (Auto) (2.6-8.5) % Eos % (Auto) (0-4.4) % Baso % (Auto) (0.2-1.2) % Lymph # (Auto) (0.9-3.2) K/mm3 [place] # (Auto) (0.1-0.6) K/mm3 Eos # (Auto) (0-0.3) K/mm3 Baso # (Auto) (0.0-0.1) K/mm3 Abs Immat Gran (auto) (0.00-0.031) K/mm3 Absolute Neuts (auto) (1.3-6.7) K/mm3 Absolute Nucleated RBC (0.0-0.012) K/mm3 Nucleated RBC % (0.0-0.2) % % Immature Plt Fraction (0.9-11.2) % PT (11.1-14.7) Seconds INR Sodium (137-145) mmol/L Potassium (3.4-5.0) mmol/L Chloride (98-107) mmol/L Carbon Dioxide (22-30) mmol/L Anion Gap (4-12) mmol/L BUN (9-20) mg/dL Creatinine (0.7-1.3) mg/dL Estim Creat Clear Calc Estimated GFR (59 - ) Glucose (65-110) mg/dL Lactic Acid (0.7-2.0) mmol/L Calcium (8.4-10.2) mg/dL Total Bilirubin (0.2-1.3) mg/dL AST (17-59) U/L ALT (6-50) U/L Alkaline Phosphatase (38-126) U/L Total Protein (6.3-8.2) g/dL Albumin (3.5-5.1) g/dL Urine Color Yellow (Yellow) Urine Appearance Clear (Clear) Urine pH 6.0 (5.0-9.0) Ur Specific [place] 1.021 (1.001-1.035) Urine Protein Negative (Negative) mg/dL Urine Glucose (UA) Negative (Negative) mg/dL Urine Ketones Trace H (Negative) mg/dL Ur Blood (Man) Negative (Negative) Urine Nitrate Negative (Negative) Urine Bilirubin Negative (Negative) Urine Urobilinogen 1.0 (<2.0) mg/dL Add Ur Microanalysis Reviewed Leukocyte Esterase Rfl Trace H (Negative) BERNARDO/UL Urine RBC 0-2 (0-2) /hpf Urine WBC 0-5 (0-3) /hpf Ur Squamous Epith Cells None seen (Few) /hpf Urine Bacteria None seen /hpf Urine Casts 0-2 ECG Data EKG #1: ECG completion date: 08/13/24 ECG completion time: 22:10 EKG Interpretation: normal rate (67), atrial fibrillation, no ectopy and normal QT Discharge Plan Discharge Clinical Impression: Weakness Patient Disposition: NH Senior Living/Asst Living Condition: Stable Instructions: Antibiotic Form, Weakness (ED) Patient Language: Mongolian Prescriptions: No Action metoprolol tartrate 50 mg tablet 100 mg PO Q12HR sennosides [senna] 8.6 mg tablet 8.6 mg PO BID acetaminophen 325 mg Tablet 650 mg PO Q4H PRN (Reason: Pain (Scale Score 1-3)) albuterol sulfate 2.5 mg /3 mL (0.083 %) Solution For Nebulization 2.5 mg inhalation Q6H PRN (Reason: Wheezing) atorvastatin 10 mg tablet 10 mg PO HS aspirin 81 mg tablet,delayed release (DR/EC) 81 mg PO DAILY omeprazole 20 mg capsule,delayed release(DR/EC) 20 mg PO QAM folic acid 1 mg tablet 1 mg PO QAM nystatin 100,000 unit/gram powder 1 applic TOPICAL Q12H PRN (Reason: reddness) Rx Instructions: apply to groin fluticasone propion-salmeterol [Wixela Inhub] 100-50 mcg/dose Blister With Device 1 ea INHALATION QAM ramelteon 8 mg tablet 8 mg PO QHS Lactobacillus acidoph-L.bulgar 1 million cell tablet 1 tablet PO BID amlodipine 5 mg tablet 5 mg PO QAM midodrine 2.5 mg Tablet 5 mg PO TID 14 Days Qty: 84 0RF Rx Instructions: Check orthostatic blood pressures every morning & give midodrine if positive orthostatic blood pressure. terazosin 10 mg capsule 10 mg PO QAM escitalopram oxalate 5 mg Tablet 5 mg PO DAILY cholecalciferol (vitamin D3) 125 mcg (5,000 unit) capsule 125 mcg PO EVERY OTHER DAY losartan [Cozaar] 50 mg tablet 100 mg PO HS cefdinir 300 mg Capsule 300 mg PO Q12HR Qty: 2 0RF doxycycline hyclate 100 mg Tablet 100 mg PO Q12HR Qty: 2 0RF Follow-up/Referrals: Jean-Claude Crawford MD [Primary Care Provider] - Time of Disposition: 00:31
[2024-08-14 01:10] VITALS: BP 134/72; PULSE 65; RESP 14; O2SAT 98
--- NOTE | 2024-08-14 01:19 | PC.NURSE ---
Report called to Cora at [facility] @[phone]
== END 2024-08-14 02:50 ==
PROVIDERS: Emergency Provider Family Medicine; PCP Family Medicine
DX: R53.1 Weakness (principal); I48.91 Unspecified atrial fibrillation; F03.90 Unspecified dementia, unspecified severity, without behavioral disturbance, psychotic disturbance, mood disturbance, and anxiety; I50.9 Heart failure, unspecified; Z79.82 Long term (current) use of aspirin; K21.9 Gastro-esophageal reflux disease without esophagitis; J44.9 Chronic obstructive pulmonary disease, unspecified; E55.9 Vitamin D deficiency, unspecified; I11.0 Hypertensive heart disease with heart failure; Z86.73 Personal history of transient ischemic attack (TIA), and cerebral infarction without residual deficits; E78.5 Hyperlipidemia, unspecified; Z87.891 Personal history of nicotine dependence
CPT/HCPCS: 36415; 80053; 81001; 83605; 85025; 85055; 85610; 87040; 93005; 96360; 96361; 99283; J7030

== ENCOUNTER 2024-09-19 15:26 | Inpatient (IN) | payer MEDICARE, SELFPAY ==
[2024-09-19] VITALS (22 sets, daily range): BP systolic 114–137; BP diastolic 67–90; PULSE 65–99; RESP 10–19; TEMP 36.6–36.8; O2SAT 83–100; BMI 23.7
--- NOTE | ~2024-09-19 | CT_ITS ---
CLINICAL INDICATION: Unresponsive COMPARISON: 04/12/2023. TECHNIQUE: An enhanced CT of the abdomen and pelvis was performed utilizing multislice spiral [employer] ue reconstructed at 5 mm slice thickness. Coronal and sagittal reconstructions were performed. This CT examination was performed utilizing dose reduction techniques. DLP: 864 mGy-cm FINDINGS/OBSERVATIONS: Lung: The lungs are clear. The heart is enlarged, with a small pericardial effusion. Closure device identified within the left atrial appendage. Mediastinum: Asymmetric enlargement of the right lobe of the thyroid gland, a nonspecific finding. No pathologically enlarged or morphologically suspicious lymph nodes are identified within the medias tinum, bilateral axilla, within the soft tissues of the anterior chest wall. Soft tissues of the chest: Unremarkable. Bones of the chest: No acute fracture. No lytic or blastic lesions are identified. Liver: The liver enhances homogeneously and is not enlarged. Gallbladder and biliary system: The gallbladder is surgically absent. Pancreas: The pancreas enhances homogeneously, without ductal dilatation. Spleen: Punctate calcifications identified within the splenic parenchyma, suggesting prior granulomat ous disease. The remainder of the spleen otherwise enhances homogeneously and is not enlarged. Kidneys: Right sided parapelvic cyst. The bilateral kidneys otherwise enhance symmetrically without hydronephrosis or renal calculi. Adrenal glands: Unremarkable. Gastrointestinal tract: Small hiatal hernia is present. Colonic diverticulosis without surrounding inflammatory change. Appendix: The air-filled appendix is of normal caliber (axial series, images 180 through 206). Vasculature: Calcified atherosclerotic disease is present. No significant aneurysmal dilatation. Lymph nodes: Scattered nonpathologically enlarged lymph nodes within the root of the mesentery and deep in the pel vis. Pelvic structures: The bladder is decompressed and otherwise unremarkable. The prostate gland is not enlarged. Body wall and musculoskeletal: Small fat-containing umbilical hernia. Age-appropriate degenerative disease within the lower thoracic and lumbosacral spines, unchanged from 2020. IMPRESSION: No acute findings within the chest, abdomen or pelvis, as detailed above. Reviewed, dictated and finalized at location A.
--- NOTE | ~2024-09-19 | US_ITS ---
Procedure: Duplex Doppler examination of the bilateral carotids. Indication: Syncope Technique: Real time, color-flow and pulse wave Doppler examination of the bilateral carotids was performed. Findings: Manriquez scale ultrasonography of the right neck demonstrated no significant plaque. There was demonstrat ion of normal color-flow and Doppler waveforms within the right common, internal and external carotid arteries. The peak systolic velocities in the right common, internal and external carotid arteries w ere demonstrated to be 61 cm/sec, 62 cm/sec and 89 cm/sec respectively. The right ICA/CCA ratio was 1 .0.The proximal right internal carotid artery demonstrates 0% stenosis relative to the normal distal artery lumen diameter. Manriquez scale sonography of the left neck demonstrated no significant plaque. There was demonstration of normal color-flow and wave forms within the left common, internal and external carotid arteries. The peak systolic velocities in the left common, internal and external carotid arteries were demonstrate d to be 57cm/sec, 59 cm/sec and 60 cm/sec respectively. The left ICA/CCA ratio was 1.0. The proximal left internal carotid artery demonstrates 0% stenosis relative to the normal distal artery lumen diam eter. There was antegrade flow demonstrated in the bilateral vertebral arteries. Impression: No hemodynamically significant stenosis of the bilateral internal carotid arteries. Antegrade flow in the bilateral vertebral arteries. Note: The methodology used is an indirect measurement validated against a direct method (such as the NASCET criteria) that compares diameters at the stenosis to the distal ICA. Reviewed, dictated and finalized at [facility]. Impression: No hemodynamically significant stenosis of the bilateral internal carotid arter ies. Antegrade flow in the bilateral vertebral arteries. Note: The methodology used is an indirect measurement validated against a direct meth od (such as the NASCET criteria) that compares diameters at the stenosis to the distal ICA.
--- NOTE | ~2024-09-19 | XR_ITS ---
CHEST RADIOGRAPH CLINICAL HISTORY: AMS . COMPARISON: Reference is made to a CT examination of the chest abdomen and pelvis performed less than one hour earlier TECHNIQUE: Single portable view of the chest. FINDINGS Closure device projects over the left atrial appendage. The remainder of the cardiomediastinal silhouette is otherwise unremarkable. Coarse interstitial lung markings detected bilaterally. The remainder of the lungs are clear. IMPRESSION: Coarse interstitial lung markings, without focal infiltrate or effusion. Reviewed, dictated and finalized at location A.
--- NOTE | ~2024-09-19 | CT_ITS ---
CTA brain carotid Ordering provider: Kevin Huggins MD History: . AMS , LKW [id number] . Comparison: 04/01/2024 Technique: CT angiogram head and neck was performed following timed intravenous injection of contrast . Thin slice axial images and reformatted coronal images were obtained. Three dimensional reformatted images of the brain were also obtained using a [employer] workstation. FINDINGS: HEAD: --ANTERIOR AND MIDDLE CEREBRAL ARTERIES AND BRANCHES: Normal caliber and contour. --INTERNAL CAROTID ARTERIES: Moderate atheromatous disease bilaterally resulting in mild stenosis but no occlusion. --BASILAR ARTERY AND BRANCHES: Moderate atheromatous disease which results in mild narrowing but no o cclusion. --POSTERIOR CEREBRAL ARTERIES: Normal caliber and contour --POSTERIOR COMMUNICATING ARTERIES: Not well visualized likely related to congenital absence or small size. --ANEURYSM: None visualized. --BRAIN: The ventricles are enlarged. The dilatation of the ventricles is proportional to the degree of sulcal prominence, not uncommon in the senescent brain. Decreased attenuation is identified within the periventricular white matter, likely secondary to micr ovascular ischemic disease, in a patient of this age. There is no mass, mass effect or midline shift. There is no abnormal extra-axial fluid collection or intracranial hemorrhage. Visualized paranasal sinuses are clear. The mastoid air cells are well aerated. No acute displaced fractures within the overlying cranium. NECK: --RIGHT CERVICAL CAROTID SYSTEM: Moderate calcified atheromatous disease of the carotid bulb and prox imal internal carotid artery. Percent stenosis per NASCET criteria is 30% No carotid dissection. --LEFT CERVICAL CAROTID SYSTEM: Moderate calcified atheromatous disease of the carotid bulb and proxi mal internal carotid artery. At the level of the carotid bulb is a small filling defect measuring 6.2 cm in length and 1.6 mm in caliber, without flow limitation. This focus may be related to flow dynam ics. No large vessel occlusion. Percent stenosis per NASCET criteria is 5% --VERTEBRAL ARTERIES: Normal caliber and contour. --VISUALIZED AORTIC ARCH AND BRANCHING VESSELS: Moderate atheromatous disease but no significant sten osis. --SOFT TISSUES: Unremarkable --CERVICAL SPINE: Age advanced degenerative changes. IMPRESSION: No acute intracranial hemorrhage or suspicious mass effect. Moderate calcified atheromatous carotid disease. No large vessel occlusion Findings within the left carotid bulb which may represent flow artifact. Percent stenosis per NASCET criteria is 30% on the right and 5% on the left. These findings were discussed with Dr. Huggins at 4:00 PM on 09/19/2024. Reviewed, dictated and finalized at location A.
--- NOTE | ~2024-09-19 | US_ITS ---
Duplex Sonography of the bilateral lower extremities: Indication: Elevated d-dimer, limited mobility Sagittal and transverse B-mode images as well as color-flow imaging were performed on the right and l eft femoral and popliteal veins. B-mode examination was done without and with compression in the tra nsverse plane. There is good visualization of the bilateral common femoral, proximal profunda femora l, superficial femoral, greater saphenous, and popliteal veins. Normal flow was seen on color-flow im aging. Normal compressibility was demonstrated. Visualized calf veins are also patent. Impression: No evidence of deep vein thrombosis involving either lower extremity. Reviewed, dictated and finalized at location M. Impression: No evidence of deep vein thrombosis involving either lower extremit y.
--- NOTE | 2024-09-19 15:37 | ECG_ITS ---
Test Date: 2024-09-19 16:30:25 Measurements Intervals [place] Rate: 73 P: 0 NE: 0 QRS: 37 QRSD: 80 T: -20 QT: 392 QTc: 433 Interpretive Statements ATRIAL FIBRILLATION MINIMAL Q WAVES- INFERIOR LEADS BORDERLINE ST-T WAVE ABNORMALITY- ANTEROLAT/INF LEADS BASELINE ARTIFACT- I, II, III, AVR, AVL AVF ABNORMAL ECG Compared to ECG 08/13/2024 22:10:45 NO SIGNIFICANT CHANGE Electronically Signed On 09-19-2024 20:51:13 CDT by Michael Cedeno D.O.
--- NOTE | 2024-09-19 15:41 | ED.AMS ---
HPI - Altered Mental Status General Chief Complaint: Altered Mental Status Stated Complaint: semi-conscious, low blood pressure History of Present Illness HPI narrative: 74-year-old male with a past medical history including prior stroke, intracranial hemorrhage, dementia, atrial fibrillation, heart failure, hypertension. Patient presents to the emergency department with mental status changes, loss of consciousness, collapse and syncope. According to an assisted living staff patient was last seen well at 2:15 p.m. and then they checked on him at 2:30 a.m. and found him completely unresponsive and unconscious. They lowered him to the ground and started performing CPR prior to him regaining consciousness but when EMS arrived he was hypotensive hypopnea, bradycardic, diaphoretic. Patient is alert oriented to his name and this seems to be his baseline mentation from advanced dementia and currently responding to his name. Related Data Home Medications ?Medication ?Instructions ?Recorded ?Confirmed ?Last Taken ?Type metoprolol tartrate 50 mg tablet 100 mg PO Q12HR 01/25/21 04/01/24 Unknown History terazosin 10 mg capsule 10 mg PO QAM 06/09/21 04/01/24 Unknown History Lactobacillus acidoph-L.bulgaricus 1 tablet PO BID 04/12/23 04/01/24 Unknown History 1 million cell tablet acetaminophen 325 mg tablet 650 mg PO Q4H PRN Pain (Scale 04/12/23 04/01/24 Unknown History Score 1-3) albuterol sulfate 2.5 mg/3 mL 2.5 mg inhalation Q6H PRN Wheezing 04/12/23 04/01/24 Unknown History (0.083 %) solution for nebulization aspirin 81 mg tablet,delayed 81 mg PO DAILY 04/12/23 04/01/24 Unknown History release atorvastatin 10 mg tablet 10 mg PO HS 04/12/23 04/01/24 Unknown History fluticasone 100 mcg-salmeterol 50 1 ea inhalation QAM 04/12/23 04/01/24 Unknown History mcg/dose blistr powdr for inhalation ([facility]ix[facility] Inhub) folic acid 1 mg tablet 1 mg PO QAM 04/12/23 04/01/24 Unknown History nystatin 100,000 unit/gram topical 1 applic topical Q12H PRN reddness 04/12/23 04/01/24 Unknown History powder omeprazole 20 mg capsule,delayed 20 mg PO QAM 04/12/23 04/01/24 Unknown History release ramelteon 8 mg tablet 8 mg PO QHS 04/12/23 04/01/24 Unknown History sennosides 8.6 mg tablet (senna) 8.6 mg PO BID 04/12/23 04/01/24 Unknown History amlodipine 5 mg tablet 5 mg PO QAM 04/13/23 04/01/24 Unknown History cholecalciferol (vitamin D3) 125 125 mcg PO EVERY OTHER DAY 10/15/23 04/01/24 Unknown History mcg (5,000 unit) capsule escitalopram oxalate 5 mg tablet 5 mg PO DAILY depression 10/15/23 04/01/24 Unknown History losartan 50 mg tablet (Cozaar) 100 mg PO HS 10/15/23 04/01/24 Unknown History Allergies Allergy/AdvReac Type Severity Reaction Status Date / Time Penicillins AdvReac Unknown Unknown Verified 04/01/24 17:05 Review of Systems Review of Systems: ROS unobtainable: Yes unobtainable due to medical condition and unobtainable due to mental status [facility] Past Medical History Medical History Heart failure with preserved ejection fraction Gastroesophageal reflux disease Retinal histoplasmosis Chronic obstructive pulmonary disease Benign prostatic hyperplasia Choledocholithiasis Anxiety Chronic anemia Alcohol abuse Atrial fibrillation (07/2019) Acute cholecystitis treated with antibiotic therapy, no cholecystectomy due to being a poor surgical candidate 10/08/2019 - returned to hospital with intra-abdominal abscess in the gallbladder fossa and extending around liver - thought to be related to gallbladder perforation. Treated with antibiotics and percutaneous drainage x 3. History of TIAs Hyperlipidemia Vitamin D deficiency Essential hypertension Dementia Surgical History Surgical History History of vasectomy History of bilateral cataract extraction History of cholecystectomy Family History Family History Sibling Polio Father Lung cancer Mother Hypertension Social History Social History Social History: Surrogate medical decision maker: Latha Redman, daughter. Code status: Full code. Smoking packs per day: 1 Smoking cigarettes per day: 20.0 Years smoked: 64 Smoking pack-years: 64.00 Smoking status: Former smoker Tobacco type: cigarettes Second hand tobacco smoke exposure: Yes Smoking end date: 10/20/19 Additional smoking assessment comments: recalled from previous hx Alcohol intake: former Drinks per week: 21 Substance use: never Substance use type: does not use Other substance usage details: Last drink was 2 years ago. 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 Mucous membranes moist. NECK: Supple. CHEST: Coarse basilar breath sounds on the left side worse than right, hypopnea, hypoxemia HEART: [Regular rate and rhythm]. No murmur heard. [Normal peripheral pulses.] ABDOMEN: [Soft, nondistended], [nontender], [No rigidity or guarding] EXTREMITIES: Normal range of motion. [No edema.] SKIN: Warm, dry, no rash. NEURO: Alert to his name, seemingly moving all extremities without any facial deficits or asymmetry in arm movement or leg movement. Difficult to fully ascertain given patient's mental status Course Vital Signs Vital signs: Vital Signs Temperature 36.6 C 09/19/24 15:18 Pulse Rate 82 09/19/24 15:18 Respiratory Rate 14 09/19/24 15:18 Blood Pressure 114/81 09/19/24 15:18 Pulse Oximetry 97 09/19/24 15:18 Temperature 36.6 C 09/19/24 15:18 Pulse Rate 86 09/19/24 18:15 Respiratory Rate 11 L 09/19/24 18:15 Blood Pressure 117/82 09/19/24 17:46 Pulse Oximetry 88 L 09/19/24 18:15 Oxygen Delivery Nasal Cannula 09/19/24 16:13 Oxygen Flow Rate 2 09/19/24 16:13 MDM - Altered Mental Status MDM Narrative Medical decision making narrative: 74-year-old male with a past medical history including prior stroke, intracranial hemorrhage, dementia, atrial fibrillation, heart failure, hypertension. Patient presents to the emergency department with mental status changes, loss of consciousness, collapse and syncope. According to an assisted living staff patient was last seen well at 2:15 p.m. and then they checked on him at 2:30 a.m. and found him completely unresponsive and unconscious. They lowered him to the ground and started performing CPR prior to him regaining consciousness but when EMS arrived he was hypotensive hypopnea, bradycardic, diaphoretic. Patient is alert oriented to his name and this seems to be his baseline mentation from advanced dementia. Patient resuscitated with fluids and brought to the resuscitation room 14 for evaluation. No signs visible injury or trauma. He has pinpoint pupils and hypopnea with hypoxia to 85% on room air. 2 mg of IV Narcan was administered without any reversal. Neuro exam shows no lateralizing deficits and he is moving all extremities, alert to his name but very hard of hearing. Currently with a blood pressure in the low 100s and heart rate in the 90s. Given patient's last known well at 2:15 p.m. with sudden mental status changes we will proceed with stroke activation and rule out intracranial hemorrhage or occlusion with CT head and CT angiography. Given the reported hypotension and bradycardia and chest compressions that were done full body CT chest abdomen pelvis was also ordered for the other potential causes of his syncope and collapse, hypotension. Low suspicion true cardiac arrest given that he return to mentation very briefly after chest compressions started without any medications and patient likely was profoundly hypotensive/hypovolemic. Fluids were administered, laboratory studies ordered, chest x-ray and EKG obtained. Patient placed on surveillance monitor, telemetry, oxygen. Currently responding to his name and protecting his airway. Patient re-evaluated frequently and awake talking and conversing but is very hard of hearing. All of his vital signs are normal aside from still needing some supplemental oxygen 2 L. No tachycardia, tachypnea, fever, hypoxia blood pressure elevations or hypotension. Patient's workup was very unremarkable including no leukocytosis or significant anemia. Normal platelet count. Electrolytes show some minor hypokalemia but not significant. Normal electrolytes otherwise with slightly decreased renal function from baseline. Normal LFTs. Negative troponin. Slightly low albumin. Urinalysis with florid urinary tract infection which could contribute to his symptoms. Started on Rocephin. UDS negative, alcohol level negative. Chest x-ray with coarse interstitial markings with no focal infiltrates or effusion. CT of the chest abdomen pelvis with no acute findings. Radiology called and discussed the CT head results of hi with no acute intracranial hemorrhage or large vessel occlusion. No significant stenosis consistent with patient's presentation. Patient re-evaluated and still doing fine without any concerns and is awake alert and talking. On review of the EMR patient has had a very similar presentation several months ago where he was hypotensive, bradycardic, had syncope and collapse which resolved during his hospital stay and they attributed his syncope and collapse to orthostatic hypotension. Could be possible orthostatic or vasovagal event leading to his presentation today as he otherwise appears well now with no concerns on his workup other than the UTI. Given the historical elements behind his presentation today I believe he needs admission for observation given the reported chest compressions, level of obtundation and abnormal vitals per EMS. I discussed this with the hospitalist team who accepted the patient to the IMU for 24 observation admission. Medical Records Attestation: I reviewed the patient's medical records. Lab Data Attestation: I reviewed the patient's lab results. 09/19/24 15:58 09/19/24 15:58 Labs: Lab Results 09/19/24 09/19/24 09/19/24 Range/Units 15:39 15:58 16:49 WBC 6.7 (4.5-10.0) K/mm3 RBC 4.01 L (4.6-6.20) M/mm3 Hgb 12.5 L (14.0-18.0) g/dL Hct 37.9 L (42.0-52.0) % MCV 94.5 (80-100) fl MCH 31.2 (26-34) pg MCHC 33.0 (32-36) g/dl RDW 12.7 (11.5-14.5) % Plt Count 154 (150-375) k/mm3 MPV 10.1 (7.4-10.4) fl Immature Gran % (Auto) 0.4 (0-0.5) % Neut % (Auto) 66.7 (45.5-73.1) % Lymph % (Auto) 24.7 (18.3-44.2) % Lake % (Auto) 6.9 (2.6-8.5) % Eos % (Auto) 0.9 (0-4.4) % Baso % (Auto) 0.4 (0.2-1.2) % Lymph # (Auto) 1.65 (0.9-3.2) K/mm3 Lake # (Auto) 0.5 (0.1-0.6) K/mm3 Eos # (Auto) 0.1 (0-0.3) K/mm3 Baso # (Auto) 0.0 (0.0-0.1) K/mm3 Abs Immat Gran (auto) 0.03 (0.00-0.031) K/mm3 Absolute Neuts (auto) 4.5 (1.3-6.7) K/mm3 Absolute Nucleated RBC 0.000 (0.0-0.012) K/mm3 Nucleated RBC % 0.0 (0.0-0.2) % PT 15.1 H (11.1-14.7) Seconds INR 1.2 APTT 27.4 (22.3-36.8) Seconds Sodium 143 (137-145) mmol/L Potassium 3.2 L (3.4-5.0) mmol/L Chloride 109 H (98-107) mmol/L Carbon Dioxide 27 (22-30) mmol/L Anion Gap 7 (4-12) mmol/L BUN 17 (9-20) mg/dL Creatinine 1.22 (0.7-1.3) mg/dL Estim Creat Clear Calc Not Reportable Estimated GFR 58 L (59 - ) Glucose 169 H (65-110) mg/dL POC Capillary Glucose 159 H (65-105) mg/dl Calcium 8.7 (8.4-10.2) mg/dL Total Bilirubin 0.8 (0.2-1.3) mg/dL AST 19 (17-59) U/L ALT 13 (6-50) U/L Alkaline Phosphatase 69 (38-126) U/L Troponin I < 0.012 (0.000-0.034) ng/mL Total Protein 5.4 L (6.3-8.2) g/dL Albumin 2.8 L (3.5-5.1) g/dL Urine Color Yellow (Yellow) Urine Appearance Cloudy H (Clear) Urine pH 7.0 (5.0-9.0) Ur Specific Chemult > 1.045 H (1.001-1.035) Urine Protein 1+ H (Negative) mg/dL Urine Glucose (UA) Negative (Negative) mg/dL Urine Ketones Negative (Negative) mg/dL Ur Blood (Man) Trace (Negative) Urine Nitrate Positive H (Negative) Urine Bilirubin Negative (Negative) Urine Urobilinogen 1.0 (<2.0) mg/dL Add Ur Microanalysis Reviewed Leukocyte Esterase Rfl 3+ H (Negative) BERNARDO/UL Urine RBC 3-5 H (0-2) /hpf Urine WBC >100 H (0-3) /hpf Ur Squamous Epith Cells None seen (Few) /hpf Urine Bacteria 4+ H /hpf Urine Casts 11-20 Hyaline Casts Present (None) /lpf Urine Opiates Screen Negative (Negative) Urine Methadone Screen Negative (Negative) Ur Barbiturates Screen Negative (Negative) Ur Phencyclidine Scrn Negative (Negative) Ur Amphetamine Screen Negative (Negative) U Benzodiazepines Scrn Negative (Negative) Urine Cocaine Screen Negative (Negative) U Cannabinoids Screen Negative (Negative) Ethyl Alcohol < 10 (<10) mg/dL Imaging Data Attestation: I personally reviewed and interpreted this imaging study as follows: My impression: Impressions Head/Neck CTA 09/19/24 16:02 IMPRESSION: No acute intracranial hemorrhage or suspicious mass effect. Moderate calcified atheromatous carotid disease. No large vessel occlusion Findings within the left carotid bulb which may represent flow artifact. Percent stenosis per NASCET criteria is 30% on the right and 5% on the left. These findings were discussed with Dr. Huggins at 4:00 PM on 09/19/2024. Chest/Abdomen/Pelvis CT 09/19/24 16:45 IMPRESSION: No acute findings within the chest, abdomen or pelvis, as detailed above. Chest X-Ray 09/19/24 17:07 IMPRESSION: Coarse interstitial lung markings, without focal infiltrate or effusion. ECG Data EKG #1: Attestation: I personally reviewed and interpreted this ECG as follows: ECG completion date: 09/19/24 ECG completion time: 16:30 Prior ECG tracings: available for review Interpretation: Atrial fibrillation, no ST segment elevations, depressions or inversions. QTC 433. No P wave. QRS 80. Regular rate and axis, irregular rhythm with AFib. No significant interval change compared to prior EKG obtained. Critical Care Time Critical Care Time Critical Care Time: Yes Total Critical Care Time: 35 Discharge Plan Discharge Clinical Impression: Acute alteration in mental status, Urinary tract infection, Syncope and collapse, A-fib Patient Disposition: Still a Patient Condition: Stable Time of Disposition: 17:28
--- OUTSIDE RECORDS SUMMARY | 2024-09-19 15:41 | XMS_ITS | Clinical Summary ---
Author Organization [facility] [place] Address [address] [place] [address] Care Team Providers Care Land Title Examiner Name Role Phone None, Physician Primary Care Provider Unavailabl e Source Comments [facility] [place],non-owned Affiliates and Associated Physician Practices is amultiple site organization consisting of ambulatory clinics and hospital sitesin [place], [place], [place] and [place]. This disclosure is being madepursuant to the Care Everywhere program and may not contain all information available regarding this patient. Last updated 17.[facility] [place] Medications * Be aware that medications may [...] by mouth at bedtime Active nystatin (Mycostatin) 109761 UNIT/GM powder Apply to affected area 2 times daily 08/11/2024 Active Active Problems Problem Noted Date Diagnosed [...] Encounters Date Type Department Care Team Description 09/01/2024 Telephone [facility] - ENT [address], [address] [place] [address] Theo Otero, CHANTEL-ROAD INSPECTOR Appointment 08/07/2024 2:17 PM CDT - 08/11/2024 7:38 PM CDT Hospital Encounter [facility] ACUTE [address] [place] [id number] Edwardo Kincaid MD Garcia, Andrew M, MD Kunnath, Paul V., MD Pollard, Myron Lazo II, MD Internal Medicine Discharge Disposition: [facility] Facility 08/07/2024 Travel from Last 3 Months Social History Tobacco Use Types Packs/Day Years Used Date Smoking Tobacco: Never Smokeless Tobacco: Never Tobacco Cessation:Counseling Given: Not Answered Alcohol Use Standard Drinks/Week Comments Not Currently 0 (1 standard drink = 0.6 oz pur e alcohol) Sex and Gender Information Value Date Recorded Sex Assigned at Not on file Legal Sex 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 Gender Identity Not on file Sexual Orientation [...] years 1-dose series) 2011 COVID-19 VACCINE (3 - 2023-2 5 season) 2023 08/24/2020, 08/03/2020 DEPRESSION [...] REPEAT STAT 08/07/2024 2:28 PM CDT PT-INR [facility] STAT 08/07/2024 2:28 PM CDT COMPREHENSIVE [...] 4.0 - 10.7 x10E9/L 08/11/2024 3:33 AM [facility] RBC Count 4.02(L) 4.30 - 5.80 x10E12/L 08/11/2024 3:33 AM [facility] Hemoglobin 12.9(L) 13.3 - 17.5 g/dL 08/11/2024 3:33 AM [facility] Hematocrit 35.7(L) 38.7 - 51.1 % 08/11/2024 3:33 AM [facility] MCV 88.8 80.0 - 98.0 fL 08/11/2024 3:33 AM [facility] MCH 32.1 26.7 - 33.6 pg 08/11/2024 3:33 AM [facility] MCHC 36.1 31.7 - 36.3 g/dL 08/11/2024 3:33 AM [facility] RDW-CV 12.6 11.3 - 14.8 % 08/11/2024 3:33 AM [facility] Platelet Count 132(L) 150 - 420 x10E9/L 08/11/2024 3:33 AM [facility] MPV 10.2 7.8 - 11.4 fL 08/11/2024 3:33 AM [facility] Blood BLOOD SPECIMEN / Unknown Lab Venipuncture / Unknown 08/11/2024 2:51 AM CDT 08/11/2024 3:16 AM CDT us Bill Acuna MD LAB - HEMATOLOGY ORDERABLES F inal Result [facility] [address] [place] [address], [facility] [phone] * (ABNORMAL) RENAL FUNCTION PANEL (08/11/2024 2:51 AM T) Only the most recent of4 resultswithin the time period is included. BUN 13 7 - 26 mg/dL 08/11/2024 3:46 AM [facility] Creatinine 1.08 0.71 - 1.16 mg/dL 08/11/2024 3:46 AM [facility] Sodium 141 136 - 145 mmol/L 08/11/2024 3:46 AM [facility] Potassium 4.0 3.5 - 4.5 mmol/L 08/11/2024 3:46 AM [facility] Chloride 107 98 - 107 mmol/L 08/11/2024 3:46 AM [facility] CO2 23 22 - 29 mmol/L 08/11/2024 3:46 AM [facility] Glucose 100(H) 70 - 99 mg/dL 08/11/2024 3:46 AM [facility] Albumin 2.8(L) 3.4 - 5.0 g/dL 08/11/2024 3:46 AM [facility] Calcium 8.0(L) 8.4 - 10.2 mg/dL 08/11/2024 3:46 AM [facility] Phosphorus 4.0 2.8 - 5.1 mg/dL 08/11/2024 3:46 AM T [facility] Anion Gap 11 6 - 16 08/11/2024 3:46 AM T [facility] BUN/Creatinine Ratio 12 7 - 23 08/11/2024 3:46 AM T [facility] Osmolality Calculated 292 275 - 295 mOsm/kg 08/11/2024 3:46 AM T [facility] eGFR by CKD-EPI 72(L) >=90 mL/min/1.7 3 m2 08/11/2024 3:46 AM T [facility] Blood BLOOD SPECIMEN / Unknown Lab Venipuncture / Unknown 08/11/2024 2:51 AM CDT 08/11/2024 3:15 AM CDT us Bill Acuna MD LAB - CHEMISTRY ORDERABLES Fi nal Result Performing Organization Address [facility]/ZIP Co de Phone Number [address] [address], [place] [phone] * MAGNESIUM BLOOD (08/11/2024 2:51 AM CDT) Only the most recent of4 resultswithin the time period is included. Magnesium 1.6 1.6 - 2.6 mg/dL 08/11/2024 3:43 AM T [facility] Blood BLOOD SPECIMEN / Unknown Lab Venipuncture / Unknown 08/11/2024 2:51 AM CDT 08/11/2024 3:15 AM CDT us Bill Acuna MD LAB - CHEMISTRY ORDERABLES Fi nal Result Performing Organization Address [facility]/State/ZIP Co de Phone Number [address] [address], [employer] [phone] * CARDIAC EKG ORDER (08/10/2024 10:42 AM [...] Provider: Regan Fisher MD on 08/09/2024 7:52PM Myron Zapien II, MD DIAGNOSTIC IMAGING ORDER [...] DATE/TIME OF EXAM: 08/08/2024 2:16 PM, LOCATION [facility] INDICATION: R53.1: Weakness R11.10: Vomiting, unspecified vomiting [...] DATE/TIME OF EXAM: 08/08/2024 2:16 PM, LOCATION [facility] INDICATION: R53.1: Weakness R11.10: Vomiting, unspecified vomiting [...] Lida Echeverria MD on 08/08/2024 3:03 PM Edwardo Kincaid MD MR ORDERABLES Final Result * (ABNORMAL) URINALYSIS REFLEX MICROSCOPIC REFLEX CULTURE (08/07/2024 7:03 PM CDT) Color UA Yellow Yellow, Straw 08/07/2024 7:20 PM [facility] Clarity UA Clear Clear 08/07/2024 7:20 PM [facility] Glucose UA Normal Normal 08/07/2024 7:20 PM [facility] Bilirubin UA Negative Negative 08/07/2024 7:20 PM [facility] Ketone UA Trace(A) Negative 08/07/2024 7:20 PM [facility] Specific [place] UA >1.050(H) 1.005 - 1.030 08/07/2024 7:20 PM [facility] Comment:Specific gravity res ults confirmed by refractometer. Blood UA Negative Negative 08/07/2024 7:20 PM [facility] pH UA 6.5 5.0 - 9.0 pH 08/07/2024 7:20 PM [facility] Protein UA Negative Negative 08/07/2024 7:20 PM [facility] Urobilinogen UA 3.0(A) Normal mg/dL 08/07/2024 7:20 PM CDT [facility] Nitrite UA Negative Negative 08/07/2024 7:20 PM [facility] Leukocyte Esterase UA 250 BERNARDO/uL(A) Negative 08/07/2024 7:20 PM [facility] RBC UA 0-2 0 - 5 # /hpf 08/07/2024 7:20 PM [facility] WBC UA 51-100(A) 0 - 5 # /hpf 08/07/2024 7:20 PM [facility] WBC Clumps UA Rare(A) None Seen /HPF 08/07/2024 7:20 PM [facility] Bacteria UA None Seen None Seen 08/07/2024 7:20 PM [facility] Squamous Epithelial Cells 0-2 0 - 5 /hpf 08/07/2024 7:20 PM [facility] Mucus UA 2+ /LPF 08/07/2024 7:20 PM [facility] Hyaline Casts 3-5(A) 0 - 2 /LPF 08/07/2024 7:20 PM [facility] Urine URINE SPECIMEN OBTAINED BY SINGLE CATHETERIZATION OF URINARY BLADDER / Unknown Collection / Unknown 08/07/2024 7:03 PM CDT 08/07/2024 7:08 PM CDT us Edwardo Kincaid MD LAB - URINALYSIS ORDERABLES Fi nal Result Performing Organization Address City/State/[facility] Co de Phone Number [address] [address], [facility] [phone] * (ABNORMAL) CULTURE URINE (08/07/2024 7:03 PM CDT) Culture Urine >100,000 CFU/mL Escherichia coli extended-spectr um beta-lactamase (ESBL)(A) TING 08/11/2024 1:23 AM CDT [facility] Urine URINE SPECIMEN OBTAINED BY SINGLE CATHETERIZATION OF URINARY BLADDER / Unknown Collection / Unknown 08/07/2024 7:03 PM CDT 08/07/2024 7:08 PM CDT Narrative [facility] - 08/11/2024 1:23 AM CDT Contact [...] MD LAB - MICROBIOLOGY ORDERABLES Final Result [facility] [address] [place] [address], [facility] [phone] * TSH REFLEX FREE T4 (08/07/2024 3:54 PM CDT) TSH 2.619 0.350 - 4.940 uIU/mL 08/07/2024 9:20 PM CDT [facility] Blood BLOOD SPECIMEN / Unknown Venipuncture / Unknown 08/07/2024 3:54 PM CDT 08/07/2024 4:01 PM CDT Bill Acuna MD LAB - CHEMISTRY ORDERABLES Fi nal Result Performing Organization Address [facility]/ZIP Co de Phone Number [address] [address], [facility] [phone] * C-REACTIVE PROTEIN (08/07/2024 3:54 PM CDT) C-Reactive Protein <0.5 <=0.5 mg/dL 08/07/2024 4:27 PM CDT [facility] Blood BLOOD SPECIMEN / Unknown Venipuncture / Unknown 08/07/2024 3:54 PM CDT 08/07/2024 4:01 PM CDT Bill Acuna MD LAB - CHEMISTRY ORDERABLES Fi nal Result Performing Organization Address [facility]/ZIP Co de Phone Number [address] [address], [facility] [phone] * ERYTHROCYTE SEDIMENTATION RATE (08/07/2024 3:54 PM CDT) Erythrocyte Sedimentation Rate Westergren 9 0 - 20 MM/HR 08/07/2024 4:19 PM CDT [facility] Blood BLOOD SPECIMEN / Unknown Venipuncture / Unknown 08/07/2024 3:54 PM CDT 08/07/2024 4:01 PM CDT us Bill Acuna MD LAB - HEMATOLOGY ORDERABLES F inal Result Performing Organization Address [facility]/ZIP Co de Phone Number [address] [address], [facility] [phone] * TROPONIN-I HIGH SENSITIVE REFLEX 1HOUR (08/07/2024 3:52 PM CDT) Troponin I High Sensitive <3 <=35 ng/L 08/07/2024 4:37 PM CDT [facility] Delta Troponin I HS 08/07/2024 4:37 PM CDT [facility] Comment:Result exceeds linea rity range. A delta value is unable to be calculated. Blood BLOOD SPECIMEN / Unknown Venipuncture / Unknown 08/07/2024 3:52 PM CDT 08/07/2024 4:01 PM CDT us Edwardo Kincaid MD LAB - CHEMISTRY ORDERABLES Fin al Result Performing Organization Address [facility]/ZIP Co de Phone Number [address] [address], [place] [phone] * BLOOD TYPE VERIFICATION (08/07/2024 3:50 PM CDT) ABO Rh O POS 08/07/2024 4:3 7 PM CDT [facility] Blood Bank BLOOD SPECIMEN / Unknown Venipuncture / Unknown 08/07/2024 3:50 PM CDT 08/07/2024 4:00 PM CDT Edwardo Kincaid MD LAB - BLOOD BANK ORDERABLES Fi nal Result Performing Organization Address City/[facility]/ZIP Co de Phone Number [facility] [address] [place] [address], [facility] [phone] * XR Chest 1Vw (08/07/2024 2:52 PM CDT) Anatomical Region Laterality Modality Chest Digital Radiogra phy 08/07/2024 2:39 PM CDT Narrative 08/07/2024 3:02 PM CDT PROCEDURE: XR CHEST 1VW, DATE/TIME OF EXAM: 08/07/2024 2:35 PM, LOCATION [facility] INDICATION: R53.1: Weakness R11.10: Vomiting, unspecified vomiting [...] abnormality. Report dictated by Drake Kaye MD, (Supervisor Beam Department). Tamar Freire MD have personally reviewed and interpreted this examination/study. > Interpreting Provider: Tamar Ching MD on 08/07/2024 3:02 PM Procedure Note Tamar Ching MD - 08/07/2024 PROCEDURE: XR CHEST 1VW, DATE/TIME OF EXAM: 08/07/2024 2:35 PM, LOCATION [facility] INDICATION: R53.1: Weakness R11.10: Vomiting, unspecified vomiting [...] abnormality. Report dictated by Drake Kaye MD, (Supervisor Beam Department). Tamar Freire MD have personally reviewed and interpreted this [...] within the cavernous segments-moderate on the left, [id number] on the right. 2.No large vessel occlusions [...] DATE/TIME OF EXAM: 08/07/2024 2:34 PM, LOCATION [facility] INDICATION: R53.1: Weakness ADDITIONAL CLINICAL INFORMATION: Ordering [...] STROKE, DATE/TIME OF EXAM: :34 PM, LOCATION [facility] INDICATION: R53.1: Weakness ADDITIONAL CLINICAL INFORMATION: Ordering [...] stenosis within the cavernous segments-moderate on theleft, [id number] on the right. 2.No large vessel occlusions [...] Chuck Sol MD on 08/07/2024 3:43 PM us Byron Diaz MD CT ORDERABLES Final Result * PT-INR [facility] (08/07/2024 2:28 PM CDT) PT 13.9 12.1 - 14.8 Seconds 08/07/2024 3:00 PM CDT [facility] INR 1.1 See Comment 08/07/2024 3:00 PM CDT [facility] Comment:The suggested therap eutic range for standard coumadin (warfarin) therapy is an INR of 2.0-3.0. For high-risk patients (Mechanical Mitral Valve Prosthesis, etc.), the suggested prophylactic therapeutic range is an INR of 2.5-3.5. Blood BLOOD SPECIMEN / Unknown Venipuncture / Unknown 08/07/2024 2:28 PM CDT 08/07/2024 2:32 PM CDT us Byron Diaz MD LAB - COAGULATION ORDERABLES Final Result Performing Organization Address City/[facility]/ZIP Co de Phone Number [address] [address], [place] [phone] * LACTIC ACID BLOOD REFLEX TO REPEAT (08/07/2024 2:28 PM CDT) Lactic Acid-Stat 1.5 <=2.0 mmol/L 08/07/2024 3:04 PM CDT [facility] Blood BLOOD SPECIMEN / Unknown Venipuncture / Unknown 08/07/2024 2:28 PM CDT 08/07/2024 2:35 PM CDT us Edwardo Kincaid MD LAB - CHEMISTRY ORDERABLES Fin al Result [address] [address], [place] [phone] * TROPONIN-I HIGH SENSITIVE BASELINE + 1HR (08/07/2024 2:28 PM CDT) [facility] Troponin I High Sensitive <3 <=35 ng/L 08/07/2024 3:13 PM CDT [facility] Blood BLOOD SPECIMEN / Unknown Venipuncture / Unknown 08/07/2024 2:28 PM CDT 08/07/2024 2:35 PM CDT Edwardo Kincaid MD LAB - CHEMISTRY ORDERABLES Fin al Result [facility] [address] [place] [address], [facility] [phone] * TYPE + SCREEN PANEL (08/07/2024 2:28 PM CDT) [facility] Antibody Screen NEG 3:31 PM CDT [facility] ABO Rh O POS 08/07/2024 3:31 PM CDT [facility] Blood Bank BLOOD SPECIMEN / Unknown Venipuncture / Unknown 08/07/2024 2:28 PM CDT 08/07/2024 2:38 PM CDT Byron Diaz MD LAB - BLOOD BANK ORDERABLES Final Result [facility] [address] [place] [address], [facility] [phone] * (ABNORMAL) CBC W AUTO DIFFERENTIAL (08/07/2024 2:28 PM CDT) [facility] WBC 4.1 4.0 - 10.7 x10E9/L 08/07/2024 2:38 PM CDT [facility] RBC Count 3.78(L) 4.30 - 5.80 x10E12/L 08/07/2024 2:38 PM CDT [facility] Hemoglobin 12.1(L) 13.3 - 17.5 g/dL 08/07/2024 2:38 PM CDT [facility] Hematocrit 34.7(L) 38.7 - 51.1 % 08/07/2024 2:38 PM [facility] MCV 91.8 80.0 - 98.0 fL 08/07/2024 2:38 PM [facility] MCH 32.0 26.7 - 33.6 pg 08/07/2024 2:38 PM [facility] MCHC 34.9 31.7 - 36.3 g/dL 08/07/2024 2:38 PM [facility] RDW-CV 12.7 11.3 - 14.8 % 08/07/2024 2:38 PM [facility] Platelet Count 114(L) 150 - 420 x10E9/L 08/07/2024 2:38 PM [facility] MPV 10.1 7.8 - 11.4 fL 08/07/2024 2:38 PM [facility] Neutrophil % 63.9 41.0 - 74.0 % 08/07/2024 2:38 PM [facility] Lymphocyte % 28.0 17.0 - 47.0 % 08/07/2024 2:38 PM [facility] Monocyte % 5.4 3.0 - 11.0 % 08/07/2024 2:38 PM [facility] Eosinophil % 2.0 0.0 - 7.0 % 08/07/2024 2:38 PM [facility] Basophil % 0.5 0.0 - 1.6 % 08/07/2024 2:38 PM [facility] Immature Granulocytes % 0.2 0.0 - 1.0 % 08/07/2024 2:38 PM [facility] Neutrophil Absolute 2.60 1.60 - 7.50 x10E9/L 08/07/2024 2:38 PM [facility] Lymphocyte Absolute 1.14 1.00 - 4.40 x10E9/L 08/07/2024 2:38 PM [facility] Monocyte Absolute 0.22 0.15 - 1.00 x10E9/L 08/07/2024 2:38 PM [facility] Eosinophil Absolute 0.08 0.00 - 0.60 x10E9/L 08/07/2024 2:38 PM [facility] Basophil Absolute 0.02 0.00 - 0.13 x10E9/L 08/07/2024 2:38 PM [facility] Blood BLOOD SPECIMEN / Unknown Venipuncture / Unknown 08/07/2024 2:28 PM CDT 08/07/2024 2:35 PM CDT us Byron Diaz MD LAB - HEMATOLOGY ORDERABLES Final Result [facility] [address] [place] [address], [facility] [phone] * (ABNORMAL) COMPREHENSIVE METABOLIC PANEL (08/07/2024 2:28 PM T) BUN 12 7 - 26 mg/dL 08/07/2024 3:07 PM [facility] Creatinine 1.00 0.71 - 1.16 mg/dL 08/07/2024 3:07 PM [facility] Sodium 142 136 - 145 mmol/L 08/07/2024 3:07 PM [facility] Potassium 3.4(L) 3.5 - 4.5 mmol/L 08/07/2024 3:07 PM [facility] Chloride 109(H) 98 - 107 mmol/L 08/07/2024 3:07 PM [facility] CO2 27 22 - 29 mmol/L 08/07/2024 3:07 PM [facility] Glucose 146(H) 70 - 99 mg/dL 08/07/2024 3:07 PM [facility] Calcium 8.0(L) 8.4 - 10.2 mg/dL 08/07/2024 3:07 PM [facility] Protein Total 5.0(L) 6.0 - 8.3 g/dL 08/07/2024 3:07 PM [facility] Albumin 2.7(L) 3.4 - 5.0 g/dL 08/07/2024 3:07 PM [facility] Bilirubin Total 0.6 0.2 - 1.2 mg/dL 08/07/2024 3:07 PM [facility] Alkaline Phosphatase 70 40 - 150 U/L 08/07/2024 3:07 PM [facility] ALT 11 5 - 55 U/L 08/07/2024 3:07 PM [facility] AST 16 5 - 34 U/L 08/07/2024 3:07 PM [facility] Anion Gap 6 6 - 16 08/07/2024 3:07 PM [facility] BUN/Creatinine Ratio 12 7 - 23 08/07/2024 3:07 PM [facility] Osmolality Calculated 296(H) 275 - 295 mOsm/kg 08/07/2024 3:07 PM [facility] Albumin/Globulin Ratio 1.2 1.1 - 2.3 08/07/2024 3:07 PM [facility] eGFR by CKD-EPI 79(L) >=90 mL/min/1.7 3 m2 08/07/2024 3:07 PM [facility] Blood BLOOD SPECIMEN / Unknown Venipuncture / Unknown 08/07/2024 2:28 PM CDT 08/07/2024 2:35 PM CDT us Byron Diaz MD LAB - CHEMISTRY ORDERABLES F inal Result Performing Organization Address City/[facility] Co de Phone Number [facility] [address] [place] [phone], [facility] [phone] * LIPASE BLOOD (08/07/2024 2:28 PM CDT) Lipase 11 8 - 78 U/L 08/07/2024 3:07 PM T [facility] Blood BLOOD SPECIMEN / Unknown Venipuncture / Unknown 08/07/2024 2:28 PM CDT 08/07/2024 2:35 PM CDT Narrative [facility] - 08/07/2024 3:07 PM CDT Lipase results from the [employer] Alinity analyzer may not be comparable with other methodologies. us Edwardo Kincaid MD LAB - CHEMISTRY ORDERABLES Fin al Result [address] [address], [place] [phone] * INR WHOLE BLOOD - POINT OF CARE (IP) STROKE (08/07/2024 2:25 PM CDT) INR 1.1 0.9 - 1.2 08/08/2024 3:34 AM CDT [facility] Device [id number] 08/08/2024 3:34 AM CDT [facility] Notching Machine Operator ID [id number] 08/08/2024 3:34 AM CDT [facility] Blood BLOOD SPECIMEN / Unknown 08/07/2024 2:25 PM CDT 08/08/2024 3:34 AM CDT us Provider Unknown LAB - POINT OF CARE ORDERABLES Final Result Performing Organization Address [facility]/ZIP Co de Phone Number [address] [address], [place] [phone] * CREATININE - POCT INTERFACED (08/07/2024 2:25 PM CDT) Creatinine POCT 0.87 0.30 - 1.30 mg/dL 08/07/2024 2:27 PM CDT [facility] eGFR >90 >=90 mL/min/1.7 3 m2 08/07/2024 2:27 PM CDT [facility] Blood BLOOD SPECIMEN / Unknown 08/07/2024 2:25 PM CDT 08/07/2024 2:27 PM CDT us Provider Unknown LAB - POINT OF CARE ORDERABLES Final Result Performing Organization Address City/[facility]/ZIP Co de Phone Number [address] [address], [place] [phone] * (ABNORMAL) GLUCOSE - POINT OF CARE (08/07/2024 2:24 PM CDT) Glucose WB/POC 147(H) 70 - 99 mg/dL 08/07/2024 2:24 PM CDT [facility] Specimen Type Cap Fingerstick 2024 2:24 PM CDT [facility] Blood BLOOD SPECIMEN / Unknown 08/07/2024 2:24 PM CDT 08/07/2024 2:24 PM CDT us Provider Unknown LAB - POINT OF CARE ORDERABLES Final Result Performing Organization Address City/State/[facility] Co de Phone Number [facility] [address] [place] [address], [facility] [phone] from Last 3 Months Additional Health Concerns Infection Onset Date Last Indicated ESBL GNR 08/07/2024 08/07/2024 Insurance [facility] Advance Directives Documents on File Type Date Recorded Patient Money Room Supervisor Expl anation Adv Directive/Living Will/POA 08/07/2024 * [...] ionNo Intubation, No Invasive Ventilation Care Teams Land Title Examiner Relationship Specialty Start Date End Date None, Physician PCP - General 08/07/24
--- OUTSIDE RECORDS SUMMARY | 2024-09-19 15:41 | XMS_ITS | Clinical Summary ---
Author Organization [facility] D Address [address] [place] [address] Care Team Providers Care Cross Cut Sawyer Name Role Phone Jean-Claude Crawford MD Unavailable [phone] Jessie Delvalle MD Unavailable + Sandip Barone MD Unavailable [phone] Carey Dorsey NP Primary Care Provi jovanny Allergies Active Allergy [...] fall. Discussed with his charge nurse. [employer] and his at length. There has been [...] wounds have no more redness. At all. Breann are in place incision appears to be [...] dose. Assessment & Plan (06/15/2020 2:29 PM OPERATIONS MANAGEMENT PROFESSIONALS): Rates rapid today however, states not rapid [...] BRENNON Assessment & Plan (06/15/2020 2:28 PM OPERATIONS MANAGEMENT PROFESSIONALS): Previously mild last assessed in July last year, likely tachycardia mediated but significant risk factors for CAD in no recent ischemic evaluation. I would favor pharmacologic stress SPECT. Seems to be tolerating current guideline medical therapy. Needs to have a follow-up BMP. Reassess LV function with echo. Further recommendations forthcoming. Cholecystitis 06/14/2020 Overview (06/14/2020): Added automatically from request for surgery [id number] DVT (deep venous thrombosis) 02/20/2020 Intra-abdominal abscess [...] Never 07/31/2022 How often do you attend [facility] or latter day services? Never 07/31/2022 Do you belong to any clubs o r organizations such as amish groups, unions, fraternal or athletic groups, or [...] slept in a longterm (including now)? No 07/31/2022 Personal Safety Answer Date Recorded Have you ever been in or are you currently in a harmful physical or emotional relationship or is someone making you feel afraid or unsafe? 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 Sex Male 9:10 PM OPERATIONS MANAGEMENT PROFESSION[employer] Gender Identity Not on file Sexual Orientation Not on file Obstetrics History Last Filed Vital Signs Vital Sign Reading Time Taken Comments Blood Pressure 114/82 05/15/2023 12:14 PM [employer]PERATIONS MANAG[employer] Pulse 85 05/15/2023 12:14 PM [employer]PERATIONS MANAGEMENT [employer]ESSION[employer] Temperature 36.1 C (97 F) 08/29/2022 10:02 AM CDT Respiratory Rate 19 08/29/2022 10:02 AM CDT Oxygen Saturation 90% 05/15/2023 12:14 PM OPERATIONS MANAGEMENT PROFESSIONALS Inhaled Oxygen Concentration - - Weight 81.6 kg (180 lb) 05/15/2023 12:14 PM [employer] MANAGEMENT PROFESSION[employer] Height 180.3 cm (5' 11) 05/15/2023 12:14 PM OPERATIONS MANAGEMENT PROFESSIONALS Body Mass Index 25.1 05/15/2023 12:14 PM OPERATIONS MANAGEMENT PROFESSIONALS Plan of Treatment Health Maintenance Due Date Last Done Comments Colon Cancer Screening-Colonoscopy 1950 Depression Screening 1950 DTaP/Tdap/Td Vaccine (1 - Tdap) 1962 Hepatitis B Screening 1969 Pneumococcal vaccine 65+ (1 of 2 - PCV) 1970 Lung Cancer Screening 2001 Zoster Vaccine (1 of 2) 2001 Well Visit 65+ 2016 Fall Risk Assessment 08/30/2023 08/29/2022 Influenza Vaccine (Season Ended) 2024 02/20/20 20 Abdominal Aortic Aneurysm (AAA) Screen Completed , 03/26/2020 Hepatitis C Screening Completed 06/12/2021 Medical Devices Implanted Type Area Customer Trainer Device Identifier Shelf Expiration Date Model / Serial / Lot [employer] Mariposa Watchman Flx Procedure Device Wmflxperproc - S0 - [id number] Implanted:Qty: 1 on 07/17/2022 by Pedro Luis Mccormack MD at [facility] Left Atrial Appendage Occluder N/A: Atrial Appendage [employer] Mariposa 04/24/2025 WMFLXPERPRO C / 0 / [id number] Das & Nephew/Richco/O rtho [id number] 44cm 13mm Left Intertrochanter 130d 1.5mm Nail - [id number] Implanted:Qty: 1 on 07/04/2021 by Jessie Delvalle MD at [facility] Left: Femur Das [employer] Nephew/Richco /Ortho 09/15/2030 [id number] / / Das & Nephew/Richco/O rtho Intertan 4.5mm 95mm 90mm Lag Compression Integrated Interlocking [id number] - [id number] Implanted:Qty: 1 on 07/04/2021 by Jessie Delvalle MD at [facility] Left: Femur Das [employer] Nephew/Richco /Ortho 05/14/2031 [id number] / / Das [employer] Nephew/Richco/O rtho [id number] 5mm 52.5mm Low Profile Internal Hex Femur Screw Bone Trigen - [id number] Implanted:Qty: 1 on 07/04/2021 by Jessie Delvalle MD at [facility] Left: Femur Das [employer] Nephew/Richco /Ortho [id number] / / Das & Nephew/Richco/O rtho [id number] Trigen 5mm 62.5mm Low Profile Femur Screw Bone - [id number] Implanted:Qty: 1 on 07/04/2021 by Jessie Delvalle MD at [facility] Left: Femur Das [employer] Nephew/Richco /Ortho [id number] / / Das & Nephew/Richco/O rtho Intertan 11.5mm 20cm Trochanteric 125d Nail Intramedullary [id number] - [id number] Implanted:Qty: 1 on 10/08/2021 by Miguel Flores MD at [facility] Right: Femur [employer] Nephew/Richco /Ortho [id number] 09/21/2030 [id number] / / [id number] Das & Nephew/Richco/O rtho Intertan 11mm 90mm Lag Subtrochanter Screw Bone Titanium [id number] - [id number] Implanted:Qty: 1 on 10/08/2021 by Miguel Flores MD at [facility] Right: Femur Das [employer] Nephew/Richco /Ortho [id number] 04/21/2030 [id number] / / [id number] Sandoval Vascular Device Clsr Perclose Prostyle Sut-Mediatd Closure-Repair Sys 74804-63 - S0 - [id number] Implanted:Qty: 1 on 07/17/2022 by Pedro Luis Mccormack MD at [facility] [employer] 04/07/2024 [id number] / 0 / [id number] Sandoval Vascular Device Clsr Perclose Prostyle Sut-Mediatd Closure-Repair Sys 53322-36 - S0 - [id number] Implanted:Qty: 1 on 07/17/2022 by Pedro Luis Mccormack MD at [facility] [employer] 04/07/2024 22330-15 / 0 / [id number] Procedures Procedure Name Priority Date/Time Associated Diagnosis Comments HEPATITIS PANEL, ACUTE Routine 06/12/2021 4:34 [address] OPERATIONS MANAGEMENT PROFESSIONALS CT ABDOMEN PELVIS W CONTRAST Schedule Routine, Read Routine (OP Routine) 06/13/2020 12:13 PM [employer] MANAG[employer] Cholecystitis from Last 3 Months or Most Recently Relevant to Health Maintenance Results * Hepatitis panel, acute (06/12/2021 4:34 PM OPERATIONS MANAG[employer]ESSION[employer]) Hep A IgM Nonreactive Nonreactive [facility] Comment: Interpretive Data: If Hep A IgM Ab is reported as Equivocal, a new sample should be drawn in two weeks for testing. Current interpretive data was last revised on 19. Hep B core IgM Nonreactive Nonreactive [facility] Comment: Interpretive Data If HepB Core IgM Ab is reported as Equivocal, a new sample should be drawn in two weeks for testing. Current interpretive data was last revised on 19. Hep C Ab Nonreactive Nonreactive [facility] Comment:Antibodies to HCV no t detected. Does NOT exclude the possibility of recent exposure to HCV. HepBsAg Nonreactive Nonreactive [facility] Blood 06/12/2021 4:34 PM [employer] MANAG[employer] 06/12/2021 4:44 PM [employer] us Romy Trent NP LAB MICROBIOLOGY - GENER AL ORDERABLES Edited Result - [facility] Department [place] [address] * CT Abdomen Pelvis W Contrast (06/13/2020 12:13 PM [employer] MANAG[employer]) Anatomical Region Laterality Modality Body N/A Computed Tomogra phy 06/13/2020 12:3 2 PM [employer] Addenda Addendum by Stepan Scott MD on 07/26/2020 3:48 PM CDT ADDENDUM: To correct the title and technique of this exam, the exam performed was a CT of the abdomen and pelvis with intravenous contrast. The chest was not scanned. Electronically signed by: Stepan Scott M.D. Impressions 06/13/2020 12:32 PM [employer] MANAG[employer] 1. Interval decrease in size of an abscess extending from the gallbladder fossa the anterior abdominal wall. 2. Extensive colonic diverticulosis. Mild thickening of the right hemicolon may be related to chronic diverticulitis. 3. Small pleural and pericardial effusions. Electronically signed by: Stepan Scott M.D. Narrative 06/13/2020 12:32 PM [employer] EXAMINATION: Computed tomography of the chest, abdomen [...] Advance Directives For more information, please contact: [phone] Documents on File Type Date Recorded Patient Educational Therapy Teacher Expl anation ADVANCE DIRECTIVE 07/29/2022 11:00 PM Artemio r of Sales Marketing Coordinator-Medical ADVANCE DIRECTIVE 07/10/2021 11:03 AM POWER OF DEBURRER-MEDICAL ADVANCE DIRECTIVE 06/21/2021 6:25 PM POA ADVANCE [...] Comments 10/04/2021 3:23 PM 10/05/2021 12:21 AM Care Teams Cross Cut Sawyer Relationship Specialty Start Date End Date Carey Dorsey NP [address] [address] PCP - General Family Medicine 05/15/23 Jean-Claude Crawford MD [address] [facility] [address] [place] [address] Family Medicine 04/12/20 Jessie Delvalle MD [address] [facility] [address] [place] [address] Orthopedic Surgery 07/07/21 Sandip Barone MD [address] [address] Consulting Physician Neurosurgery 07/07/21
--- OUTSIDE RECORDS SUMMARY | 2024-09-19 15:41 | XMS_ITS | Clinical Summary ---
Author Organization [facility] Address [address] [place] [address] Care Team Providers Care Asian Studies Professor Name Role Phone Traci Minaya MD Primary [...] on file Legal Sex Male 10:01 AM LOCOMOTIVE PIPE FITTER Gender Identity Not on file Sexual Orientation [...] Insurance BCBS MEDICARE BCBS MEDICARE Care Teams Asian Studies Professor Relationship Specialty Start Date End Date Traci Minaya MD PCP - General Geriatric Medicine 09/19/21
--- OUTSIDE RECORDS SUMMARY | 2024-09-19 15:41 | XMS_ITS | Referral Summary ---
Author Organization [facility] D Address [address] [place] [address] Care Team Providers Care College Specialist Name Role Phone Jean-Claude Crawford MD Unavailable [phone] Jessie Delvalle MD Unavailable + Sandip Barone MD Unavailable [phone] Carey Dorsey TILE PRESSER Primary Care Provi jovanny Allergies Active Allergy [...] fall. Discussed with his charge nurse. [employer] and his at length. There has been [...] dose. Assessment & Plan (06/15/2020 2:29 PM DYE WINCH OPERATOR): Rates rapid today however, states not [...] BRENNON Assessment & Plan (06/15/2020 2:28 PM DYE WINCH OPERATOR): Previously mild last assessed in July last year, likely tachycardia mediated but significant risk factors for CAD in no recent ischemic evaluation. I would favor pharmacologic stress SPECT. Seems to be tolerating current guideline medical therapy. Needs to have a follow-up BMP. Reassess LV function with echo. Further recommendations forthcoming. Cholecystitis 06/14/2020 Overview (06/14/2020): Added automatically from request for surgery [id number] DVT (deep venous thrombosis) 02/20/2020 Intra-abdominal abscess [...] often do you attend chur ch or yazdanism services? Never 07/31/2022 Do you [...] slept in a mcc (including now)? No 07/31/2022 Personal Safety Answer Date Recorded Have you ever been in or are you currently in a harmful physical or emotional relationship or is someone making you feel afraid or unsafe? 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 Sex Male 9:10 PM DYE WINCH OPERATOR Gender Identity Not on file Sexual Orientation Not on file Last Filed Vital Signs Vital Sign Reading Time Taken Comments Blood Pressure 114/82 05/15/2023 12:14 PM DYE WINCH OPERATOR Pulse 85 05/15/2023 12:14 PM DYE WINCH OPERATOR Temperature 36.1 C (97 F) 08/29/2022 10:02 AM CDT Respiratory Rate 19 08/29/2022 10:02 AM CDT Oxygen Saturation 90% 05/15/2023 12:14 PM DYE WINCH OPERATOR Inhaled Oxygen Concentration - - Weight 81.6 kg (180 lb) 05/15/2023 12:14 PM DYE WINCH OPERATOR Height 180.3 cm (5' 11) 05/15/2023 12:14 PM DYE WINCH OPERATOR Body Mass Index 25.1 05/15/2023 12:14 PM DYE WINCH OPERATOR Plan of Treatment Not on file Medical Devices Implanted Type Area Center Maker Hand Device Identifier Shelf Expiration Date Model / Serial / Lot Goombalman Flx Procedure Device Wmflxperproc - S0 - [id number] Implanted:Qty: 1 on 07/17/2022 by Pedro Luis Mccormack MD at [facility] Left Atrial Appendage Occluder N/A: Atrial Appendage [employer] Mariposa 04/24/2025 WMFLXPERPRO C / 0 / [id number] Dsa & Nephew/Richco/O rtho [id number] n 44cm 13mm Left Intertrochanter 130d 1.5mm Nail - [id number] Implanted:Qty: 1 on 07/04/2021 by Jessie Delvalle MD at [facility] Left: Femur [employer]hew/Richco /Ortho 09/15/2030 [id number] / / Das [employer] Nephew/Richco/O rtho Intertan 4.5mm 95mm 90mm Lag Compression Integrated Interlocking [id number] - [id number] Implanted:Qty: 1 on 07/04/2021 by Jessie Delvalle MD at [facility] Left: Femur [employer]hew/Richco /Ortho 05/14/2031 [id number] / / Das [employer] Nephew/Richco/O rtho [id number] 5mm 52.5mm Low Profile Internal Hex Femur Screw Bone Trigen - [id number] Implanted:Qty: 1 on 07/04/2021 by Jessie Delvalle MD at [facility] Left: Femur [employer]hew/Richco /Ortho [id number] / / Das & Nephew/Richco/O rtho [id number] Trigen 5mm 62.5mm Low Profile Femur Screw Bone - [id number] Implanted:Qty: 1 on 07/04/2021 by Jessie Delvalle MD at [facility] Left: Femur [employer]hew/Richco /Ortho [id number] / / Das [employer] Nephew/Richco/O rtho Intertan 11.5mm 20cm Trochanteric 125d Nail Intramedullary [id number] - [id number] Implanted:Qty: 1 on 10/08/2021 by Miguel Flores MD at [facility] Right: Femur [employer] Nephew/Richco /Ortho [id number] 09/21/2030 [id number] / / [id number] Das [employer] Nephew/Richco/O rtho Intertan 11mm 90mm Lag Subtrochanter Screw Bone Titanium [id number] - [id number] Implanted:Qty: 1 on 10/08/2021 by Miguel Flores MD at [facility] Right: Femur Das [employer] Nephew/Richco /Ortho [id number] 04/21/2030 [id number] / / [id number] Sandoval Vascular Device Clsr Perclose Prostyle Sut-Mediatd Closure-Repair Sys 62365-03 - S0 - [id number] Implanted:Qty: 1 on 07/17/2022 by Pedro Luis Mccormack MD at [facility] [employer] 04/07/2024 [id number] / 0 / [id number] Sandoval Vascular Device Clsr Perclose Prostyle Sut-Mediatd Closure-Repair Sys 84593-80 - S0 - [id number] Implanted:Qty: 1 on 07/17/2022 by Pedro Luis Mccormack MD at [facility] [employer] 04/07/2024 [id number] / 0 / [id number] Procedures Procedure Name Priority Date/Time Associated Diagnosis Comments HEPATITIS PANEL, ACUTE Routine 06/12/2021 4:34 PM DYE WINCH OPERATOR CT ABDOMEN PELVIS W CONTRAST Schedule Routine, Read Routine (OP Routine) 06/13/2020 12:13 PM DYE WINCH OPERATOR Cholecystitis from Last 3 Months or Most Recently Relevant to Health Maintenance Results * Hepatitis panel, acute (06/12/2021 4:34 PM DYE WINCH OPERATOR) Hep A IgM Nonreactive Nonreactive [facility] Comment: Interpretive Data: If Hep A IgM Ab is reported as Equivocal, a new sample should be drawn in two weeks for testing. Current interpretive data was last revised on 19. Hep B core IgM Nonreactive Nonreactive [facility] Comment: Interpretive Data If HepB Core IgM Ab is reported as Equivocal, a new sample should be drawn in two weeks for testing. Current interpretive data was last revised on 19. Hep C Ab Nonreactive Nonreactive [facility] Comment:Antibodies to HCV no t detected. Does NOT exclude the possibility of recent exposure to HCV. HepBsAg Nonreactive Nonreactive [facility] Blood 06/12/2021 4:34 PM DYE WINCH OPERATOR 06/12/2021 4:44 PM DYE WINCH OPERATOR Romy Trent NP LAB MICROBIOLOGY - GENER AL ORDERABLES Edited Result - Final [facility] Department [place] [address] * CT Abdomen Pelvis W Contrast (06/13/2020 12:13 PM DYE WINCH OPERATOR) Anatomical Region Laterality Modality Body N/A Computed Tomogra phy 06/13/2020 12:3 2 PM DYE WINCH OPERATOR Addenda Addendum by Stepan Scott MD on 07/26/2020 3:48 PM CDT ADDENDUM: To correct the title and technique of this exam, the exam performed was a CT of the abdomen and pelvis with intravenous contrast. The chest was not scanned. Electronically signed by: Stepan Scott M.D. Impressions 06/13/2020 12:32 PM DYE WINCH OPERATOR 1. Interval decrease in size of an abscess extending from the gallbladder fossa the anterior abdominal wall. 2. Extensive colonic diverticulosis. Mild thickening of the right hemicolon may be related to chronic diverticulitis. 3. Small pleural and pericardial effusions. Electronically signed by: Stepan Scott M.D. Narrative 06/13/2020 12:32 PM DYE WINCH OPERATOR EXAMINATION: Computed tomography of the chest, [...] Advance Directives For more information, please contact: [phone] Documents on File Type Date Recorded Patient Typing Bookkeeper Expl anation ADVANCE DIRECTIVE 07/29/2022 11:00 PM Artemio r of Field Staff Manager-Medical ADVANCE DIRECTIVE 07/10/2021 11:03 AM POWER OF HAZARD WASTE HANDLER-MEDICAL ADVANCE DIRECTIVE 06/21/2021 6:25 PM POA ADVANCE [...] 3:23 PM 10/05/2021 12:21 AM Care Teams College Specialist Relationship Specialty Start Date End Date Carey Dorsey NP [address] [employer] [address] PCP - General Family Medicine 05/15/23 Jean-Claude Crawford MD [address] [facility] [address] [place] [address] Family Medicine 04/12/20 Jessie Delvalle MD [address] [facility] [place] [address] Orthopedic Surgery 07/07/21 Sandip Barone MD [address] [facility] [address] [place] [address] Consulting Physician Neurosurgery 07/07/21
[2024-09-19 16:03] LABS: Basophils Percent Auto 0.4 % (0.2-1.2); Eosinophils Absolute Auto 0.1 K/mm3 (0-0.3); Eosinophils Percent Auto 0.9 % (0-4.4); Hematocrit 37.9 % (42.0-52.0); Hemoglobin 12.5 g/dL (14.0-18.0); Immature Granulocyte Absolute 0.03 K/mm3 (0.00-0.031); Immature Granulocyte Percent A 0.4 % (0-0.5); Lymphocytes Absolute Auto 1.65 K/mm3 (0.9-3.2); Lymphocytes Percent Auto 24.7 % (18.3-44.2); Mean Corpuscular Hemoglobin 31.2 pg (26-34); Mean Corpuscular Volume 94.5 fl (80-100); Mean Platelet Volume 10.1 fl (7.4-10.4); Monocytes Absolute Auto 0.5 K/mm3 (0.1-0.6); Monocytes Percent Auto 6.9 % (2.6-8.5); Neutrophils Absolute Auto 4.5 K/mm3 (1.3-6.7); Neutrophils Percent Auto 66.7 % (45.5-73.1); Platelet Count Result 154 k/mm3 (150-375); Red Blood Count 4.01 M/mm3 (4.6-6.20); Red Cell Distribution Width 12.7 % (11.5-14.5); White Blood Count 6.7 K/mm3 (4.5-10.0)
[2024-09-19 16:06] LABS: Glucose Point of Care 159 mg/dl (65-105)
[2024-09-19 16:13] LABS: Alanine Aminotransferase 13 U/L (6-50); Albumin Level 2.8 g/dL (3.5-5.1); Alkaline Phosphatase 69 U/L (38-126); Anion Gap 7 mmol/L (4-12); Aspartate Amino Transferase 19 U/L (17-59); Bilirubin,Total 0.8 mg/dL (0.2-1.3); Blood Urea Nitrogen 17 mg/dL (9-20); Calcium 8.7 mg/dL (8.4-10.2); Carbon Dioxide 27 mmol/L (22-30); Chloride 109 mmol/L (98-107); Estimated Glomerular Filt Rate 58; Ethanol < 10 mg/dL (<10); Glucose 169 mg/dL (65-110); Potassium 3.2 mmol/L (3.4-5.0); Sodium 143 mmol/L (137-145); Total Protein 5.4 g/dL (6.3-8.2)
[2024-09-19 16:16] LABS: INR 1.2; Prothrombin Time 15.1 Seconds (11.1-14.7)
[2024-09-19 16:17] LABS: Partial Thromboplastin Time 27.4 Seconds (22.3-36.8)
[2024-09-19] MEDS: NALOXONE HCL INJ 2 MG/2 ML AMP IV PUSH (16:18)
[2024-09-19 16:25] LABS: Troponin I < 0.012 ng/mL (0.000-0.034)
[2024-09-19 17:06] LABS: Add Urine Microscopic? YES; Appearance Urine Cloudy (Clear); Bacteria Urine 4+ /hpf; Bilirubin Urine Negative (Negative); Blood Urine Trace (Negative); Color Urine Yellow (Yellow); Glucose Urine UA Negative (Negative); Hyaline Casts Urine Present /lpf; Ketones Urine Negative (Negative); Leukocyte Esterase Ur 3+ LEU/UL (Negative); Need Manual Microscopic Reviewed; Nitrate Urine Positive (Negative); Protein Urine 1+ mg/dL (Negative); Specific Grav Ur > 1.045 (1.001-1.035); Squamous Epithelial Cell Urine None Seen /hpf (Few); WBC Urine >100 /hpf (0-3)
[2024-09-19] MEDS: SODIUM CHLORIDE 0.9% IV 1,000 ML 999 ML IV CONT (17:08)
[2024-09-19 17:19] LABS: Amphetamine Screen Urine Negative (Negative); Barbiturate Screen Urine Negative (Negative); Benzodiazepines Screen Urine Negative (Negative); Cannabinoid Screen Urine Negative (Negative); Cocaine Screen Urine Negative (Negative); Methadone Screen Urine Negative (Negative); Opiate Screen Urine Negative (Negative); Phencyclidine Screen Urine Negative (Negative)
--- NOTE | 2024-09-19 18:27 | PC.NURSE ---
Phlebotomy called for difficult stick with second set of cultures and lactic.
[2024-09-19 19:09] LABS: Lactic Acid Reflex 1.3 mmol/L (0.7-2.0)
--- NOTE | 2024-09-19 20:00 | PM.IMHP ---
H&P: HPI History of Present Illness Date/Time: 09/19/24 20:00 Chief Complaint: Unresponsive episode. Narrative: This is a 74-year-old male with history of stroke, intracranial hemorrhage, dementia, atrial fibrillation, heart failure with preserved ejection fraction, hypertension, hyperlipidemia, chronic obstructive pulmonary disease, and other comorbidities who presented to the emergency department via EMS from [facility] for evaluation after he was found responsive. He is a poor historian due to underlying dementia and the majority of the following is obtained via a review of his electronic medical records. According to his nursing facility, he was seen in his usual state of health at 14:15 sitting in his wheelchair. About 15 minutes later he was found unresponsive in his wheelchair. He was lowered to the ground and chest compressions were initiated. Staff indicated that the patient came to after receiving 3 compressions. EMS was summoned and he was hypotensive, hypopnea neck, bradycardic, and diaphoretic on arrival. He was administered 300 mL of lactated Ringer's and 20 mcg push dose of epinephrine. The patient does not recall the event today and does not even know that he is in the hospital. In the ED: On arrival he was SpO2 was 85% on room air with a systolic blood pressure in the low 100s and heart rate in the 90s. Pupils were pinpoint and he was hypoxic neck and therefore he was administered 2 mg of IV Narcan without signs of reversal. Fluids were administered and his vital signs remained stable although he is still requiring 2 L nasal cannula. Head CT and CT of the chest, abdomen, and pelvis without acute findings. Labs were pretty unremarkable aside from a potassium of 3.2. Urinalysis was consistent with urinary tract infection and he was started on ceftriaxone. He is being admitted in this setting for close monitoring and further workup. Review of Systems Review of Systems: Unable to be obtained accurately as he suffers from pretty significant short-term memory loss. [facility] Past Medical History Medical History (Updated 09/19/24 @ 20:01 by Corinna Ramos PA-C) Heart failure with preserved ejection fraction Gastroesophageal reflux disease Retinal histoplasmosis Chronic obstructive pulmonary disease Benign prostatic hyperplasia Choledocholithiasis Anxiety Chronic anemia Alcohol abuse Atrial fibrillation (07/2019) Acute cholecystitis treated with antibiotic therapy, no cholecystectomy due to being a poor surgical candidate 10/08/2019 - returned to hospital with intra-abdominal abscess in the gallbladder fossa and extending around liver - thought to be related to gallbladder perforation. Treated with antibiotics and percutaneous drainage. History of TIAs Hyperlipidemia Vitamin D deficiency Essential hypertension Dementia Surgical History Surgical History (Updated 09/20/24 @ 00:31 by Corinna Ramos PA-C) History of left atrial appendage closure History of vasectomy History of bilateral cataract extraction History of cholecystectomy Family History Family History Sibling Polio Father Lung cancer Mother Hypertension Social History Social History (Updated 09/20/24 @ 00:36 by Corinna Ramos PA-C) Social History: Surrogate medical decision maker: Latha Redman, daughter. Code status: Modified code, do not intubate. Smoking packs per day: 1 Smoking cigarettes per day: 20.0 Years smoked: 64 Smoking pack-years: 64.00 Smoking status: Former smoker Tobacco type: cigarettes Second hand tobacco smoke exposure: Yes Alcohol intake: former Substance use: never Substance use type: does not use Other substance usage details: Last drink was 2 years ago. 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 Spiritual care concerns: No Agree to blood products: Yes Meds Home Medications and Allergies Home Medications ?Medication ?Instructions ?Recorded ?Confirmed ?Type metoprolol tartrate 50 mg tablet 100 mg PO Q12HR 01/25/21 09/19/24 History Lactobacillus acidoph-L.bulgaricus 1 tablet PO BID 04/12/23 09/19/24 History 1 million cell tablet acetaminophen 325 mg tablet 650 mg PO Q4H PRN Pain (Scale 04/12/23 09/19/24 History Score 1-3) albuterol sulfate 2.5 mg/3 mL 2.5 mg inhalation Q6H PRN Wheezing 04/12/23 09/19/24 History (0.083 %) solution for nebulization aspirin 81 mg tablet,delayed 81 mg PO DAILY 04/12/23 09/19/24 History release atorvastatin 10 mg tablet 10 mg PO HS 04/12/23 09/19/24 History folic acid 1 mg tablet 1 mg PO QAM 04/12/23 09/19/24 History amlodipine 5 mg tablet 5 mg PO QAM 04/13/23 09/19/24 History escitalopram oxalate 5 mg tablet 5 mg PO DAILY depression 10/15/23 09/19/24 History losartan 50 mg tablet (Cozaar) 100 mg PO HS 10/15/23 09/19/24 History donepezil 10 mg tablet 10 mg PO HS 09/19/24 09/19/24 History guaifenesin 600 mg tablet, 600 mg PO Q12H PRN congestion 09/19/24 09/19/24 History extended release 12 hr Allergies Allergy/AdvReac Type Severity Reaction Status Date / Time Penicillins AdvReac Unknown Unknown Verified 04/01/24 17:05 Vital Signs Vital Signs - 24 hr 09/19/24 15:18 09/19/24 15:31 09/19/24 15:32 Temperature 97.8 F Pulse Rate 82 81 85 Respiratory Rate 14 13 19 Blood Pressure 114/81 114/81 Pulse Oximetry 97 Oxygen Delivery Oxygen Flow Rate 09/19/24 16:13 09/19/24 16:13 09/19/24 16:16 Temperature Pulse Rate Respiratory Rate Blood Pressure 135/82 125/79 Pulse Oximetry 97 Oxygen Delivery Nasal Cannula Oxygen Flow Rate 2 09/19/24 16:31 09/19/24 16:46 09/19/24 16:53 Temperature Pulse Rate Respiratory Rate Blood Pressure 128/90 126/86 Pulse Oximetry 96 Oxygen Delivery Oxygen Flow Rate 09/19/24 17:00 09/19/24 17:01 09/19/24 17:15 Temperature Pulse Rate 74 Respiratory Rate 11 L Blood Pressure 122/86 Pulse Oximetry 84 L 83 L Oxygen Delivery Oxygen Flow Rate 09/19/24 17:16 09/19/24 17:30 09/19/24 17:31 Temperature Pulse Rate 71 80 86 Respiratory Rate 11 L 12 10 L Blood Pressure 131/81 120/67 Pulse Oximetry 94 91 Oxygen Delivery Oxygen Flow Rate 09/19/24 17:45 09/19/24 17:46 09/19/24 18:00 Temperature Pulse Rate 79 84 99 Respiratory Rate 10 L 12 15 Blood Pressure 117/82 Pulse Oximetry 90 Oxygen Delivery Oxygen Flow Rate 09/19/24 18:15 Temperature Pulse Rate 86 Respiratory Rate 11 L Blood Pressure Pulse Oximetry 88 L Oxygen Delivery Oxygen Flow Rate Exam Narrative: General: Chronically ill-appearing gentleman the semi-Bird position in bed in no distress. Weight: 79.4 kg. BMI: 23.7. HEENT: Normocephalic, atraumatic. PERRL, EOMI. Sclera anicteric. Tacky mucous membranes. Neck: Supple. No obvious carotid bruits. Respiratory: Lungs are clear to auscultation bilaterally. Cardiovascular: Irregularly irregular rate and rhythm. Gastrointestinal: Abdomen is soft, nontender, and nondistended with positive bowel sounds. Skin: Warm and dry. No rash or lesions on limited exam. Extremities: No cyanosis, clubbing, or edema. Radial and pedal pulses intact. Some atrophy of the lower limbs. Neurological: Alert to self and month and date of . He does not know in what contacts he was brought to the hospital and did not recall that he was in the hospital. Cranial nerves 2-12 are grossly intact. No facial asymmetry. Generalized weakness without gross focal findings. Psychiatric: Pleasantly confused and cooperative. H&P: Results Labs Labs: Short CBC 09/19/24 Range/Units 15:58 WBC 6.7 (4.5-10.0) K/mm3 Hgb 12.5 L (14.0-18.0) g/dL Hct 37.9 L (42.0-52.0) % Plt Count 154 (150-375) k/mm3 [facility] 09/19/24 15:58 Sodium 143 Potassium 3.2 L Chloride 109 H Carbon Dioxide 27 BUN 17 Creatinine 1.22 Glucose 169 H Calcium 8.7 Cardiac Enzymes 09/19/24 Range/Units 15:58 Troponin I < 0.012 (0.000-0.034) ng/mL Liver Function 09/19/24 Range/Units 15:58 Total Bilirubin 0.8 (0.2-1.3) mg/dL AST 19 (17-59) U/L ALT 13 (6-50) U/L Alkaline Phosphatase 69 (38-126) U/L Albumin 2.8 L (3.5-5.1) g/dL Urine 09/19/24 Range/Units 16:49 Urine Color Yellow (Yellow) Urine Appearance Cloudy H (Clear) Urine pH 7.0 (5.0-9.0) Ur Specific Excello > 1.045 H (1.001-1.035) Urine Protein 1+ H (Negative) mg/dL Urine Glucose (UA) Negative (Negative) mg/dL Imaging Head/Neck CTA 09/19/24 16:02 IMPRESSION: No acute intracranial hemorrhage or suspicious mass effect. Moderate calcified atheromatous carotid disease. No large vessel occlusion Findings within the left carotid bulb which may represent flow artifact. Percent stenosis per NASCET criteria is 30% on the right and 5% on the left. Chest/Abdomen/Pelvis CT 09/19/24 16:45 IMPRESSION: No acute findings within the chest, abdomen or pelvis, as detailed above. Chest X-Ray 09/19/24 17:07 IMPRESSION: Coarse interstitial lung markings, without focal infiltrate or effusion. Assessment and Plan Assessment and plan (1) Syncope: Qualifiers: Syncope type: unspecified Qualified Code(s): R55 - Syncope and collapse Code(s): R55 - Syncope and collapse Status: Acute (2) Urinary tract infection: Qualifiers: Hematuria presence: with hematuria Urinary tract infection type: acute cystitis Qualified Code(s): N30.01 - Acute cystitis with hematuria Code(s): N39.0 - Urinary tract infection, site not specified Status: Acute (3) Hypokalemia: Code(s): E87.6 - Hypokalemia Status: Resolved (4) Atrial fibrillation: Onset Date: 07/2019 Code(s): I48.91 - Unspecified atrial fibrillation Status: Chronic (5) Heart failure with preserved ejection fraction: Code(s): I50.30 - Unspecified diastolic (congestive) heart failure Status: Acute (6) Benign prostatic hyperplasia: Code(s): N40.0 - Benign prostatic hyperplasia without lower urinary tract symptoms Status: Chronic (7) Chronic obstructive pulmonary disease: Code(s): J44.9 - Chronic obstructive pulmonary disease, unspecified Status: Chronic Plan The patient presented to the emergency department for evaluation after he was found unresponsive by staff at his nursing facility as detailed in HPI. Labs, imaging, EKG, and all reports were personally reviewed. Staff reports that the patient was unconscious and had difficulties palpating a pulse and CPR was initiated however he came to after 2 to 3 chest compression. EMS states he was hypotensive and bradycardic which he was given 300 mL lactated Ringer's and 20 mcg of push dose epinephrine. IV fluids were continued in the ED and his vital signs have remained stable since that time. Suspicion is low for true cardiac arrest and is more likely that he had syncope due to orthostasis or a vasovagal event. Pulmonary embolism is considered given history of the same and his hypoxia. He received IV contrast for CTA of the head and neck and contrast for the CT of the chest/abdomen/pelvis however that was not a chest CTA protocol. Obtain lower extremity venous Doppler ultrasounds and D-dimer. Depending on those results he may need a chest CTA tomorrow. Continue judicious IV fluid rehydration overnight. He is euvolemic if not a bit dry on exam. Avoid over-hydration and monitor strict I/O and daily weights. He is on ceftriaxone for evidence of urinary tract infection, pending urine culture. Potassium will be replaced and monitored. Continue to monitor closely in IMU. Check orthostatic vital signs. Initiate fall precautions. Atrial fibrillation is rate controlled. He is not on anticoagulation due to history of falls and intracerebral hemorrhage and he is status post left atrial appendage closure. Chronic conditions including chronic obstructive pulmonary disease, dementia, and benign prostatic hyperplasia are without acute issues. His home medications will be reviewed and resumed as appropriate. Findings and treatment plan were discussed with the patient. Questions were solicited and answered to satisfaction. The patient's medical management will be taken over by the hospitalist team in a.m. Quality VTE Prophylaxis VTE prophylaxis: mechanical ordered If No VTE Prophylaxis Answer both mechanical and pharmacologic: Reason no pharmacologic proph: medical contraindication (fall risk, history of intracranial hemorrhage) The patient has been admitted under observation status. Hospitalist MIPS Advance Care Plan I have confirmed that the patient's Advanced Care Plan is present, code status is documented, or surrogate decision maker is listed in patient medical record.: Yes Medication Reconciliation I have utilized all available resources to obtain, update and review the patients current medications (includes all prescriptions, OTC, herbals, cannabis, and nutritional supplements).: Yes
[2024-09-19] MEDS: LACTATED RINGERS 1,000 ML 125 ML IV CONT (20:19)
--- NOTE | 2024-09-19 20:27 | ADMGEN ---
This patient, Lloyd Redman, was admitted to IMU Room 203-01. Patient/family oriented to hospital policies and general routines including ID bracelet, bed and alarms, visiting hours, pain management, procedures, bathroom and other care routines, personal items, smoking policy, room service/diet, and visiting hours. Information on how to activate the Rapid Response Team has been discussed. Patient/Family are encouraged to report perceived risks to care and to ask questions if they do not understand what they are told or what they should do.
[2024-09-19 22:11] LABS: Magnesium 1.8 mg/dL (1.6-2.3); Potassium 3.3 mmol/L (3.4-5.0)
[2024-09-19 22:24] LABS: Troponin I < 0.012 ng/mL (0.000-0.034)
[2024-09-20] VITALS (24 sets, daily range): BP systolic 113–164; BP diastolic 68–109; PULSE 73–132; RESP 14–18; TEMP 36.6–37.2; O2SAT 94–100
[2024-09-20] MEDS: POTASSIUM CHLORIDE 20 MEQ ER TABLET 40 MEQ PO (00:56)
[2024-09-20] MEDS: ATORVASTATIN 10 MG TABLET PO ×2 (01:02→20:23)
[2024-09-20] MEDS: DONEPEZIL HCL 10 MG TABLET PO ×2 (01:02→20:22)
[2024-09-20 02:21] LABS: Mean Corpuscular HGB Conc 33.3 g/dl (32-36); Mean Corpuscular Volume 93.1 fl (80-100); Mean Platelet Volume 10.3 fl (7.4-10.4); Platelet Count Result 154 k/mm3 (150-375); Red Blood Count 4.19 M/mm3 (4.6-6.20); Red Cell Distribution Width 12.6 % (11.5-14.5); White Blood Count 6.2 K/mm3 (4.5-10.0)
[2024-09-20 02:26] LABS: Anion Gap 8 mmol/L (4-12); Blood Urea Nitrogen 13 mg/dL (9-20); Calcium 8.5 mg/dL (8.4-10.2); Carbon Dioxide 25 mmol/L (22-30); Chloride 110 mmol/L (98-107); Estimated CRCL calculation 79 ml/min; Estimated Glomerular Filt Rate > 60; Glucose 124 mg/dL (65-110); Potassium 2.9 mmol/L (3.4-5.0); Sodium 143 mmol/L (137-145)
[2024-09-20 02:32] LABS: D Dimer 1.39 ug/mL (<0.48)
[2024-09-20 02:37] LABS: NT Pro B Type Natriuretic Pept 1710 pg/mL (19.9-100); Troponin I < 0.012 ng/mL (0.000-0.034)
[2024-09-20 02:57] LABS: Thyroid Stimulating Hormone Reflex 0.978 uIU/mL (0.465-4.68)
[2024-09-20] MEDS: POTASSIUM CHLORIDE INJ 40 MEQ in SODIUM CHLORIDE 0.9% IV 500 ML 130 MEQ IVPB (04:17)
[2024-09-20] MEDS: METOPROLOL TARTRATE INJ 5 MG/5 ML VIAL IV PUSH (04:17)
[2024-09-20] MEDS: ESCITALOPRAM OXALATE 5 MG TABLET PO (08:15)
[2024-09-20] MEDS: METOPROLOL TARTRATE 50 MG TAB 100 MG PO ×2 (08:15→20:22)
[2024-09-20] MEDS: FOLIC ACID 1 MG TABLET PO (08:15)
[2024-09-20] MEDS: amLODIPine BESYLATE 5 MG TABLET PO (08:16)
[2024-09-20] MEDS: ASPIRIN 81 MG ENTERIC TABLET PO (08:16)
[2024-09-20] MEDS: POTASSIUM CHLORIDE 20 MEQ PACKET (FOR LIQUID) 40 MEQ PO ×2 (11:33→15:32)
[2024-09-20 14:14] LABS: Potassium 3.5 mmol/L (3.4-5.0)
--- NOTE | 2024-09-20 16:58 | PM.IMPN ---
Progress Note: A&P Assessment and Plan (1) Syncope: Qualifiers: Syncope type: unspecified Qualified Code(s): R55 - Syncope and collapse Code(s): R55 - Syncope and collapse Status: Acute (2) Urinary tract infection: Qualifiers: Hematuria presence: with hematuria Urinary tract infection type: acute cystitis Qualified Code(s): N30.01 - Acute cystitis with hematuria Code(s): N39.0 - Urinary tract infection, site not specified Status: Acute (3) Hypokalemia: Code(s): E87.6 - Hypokalemia Status: Resolved (4) Atrial fibrillation: Onset Date: 07/2019 Code(s): I48.91 - Unspecified atrial fibrillation Status: Chronic (5) Heart failure with preserved ejection fraction: Code(s): I50.30 - Unspecified diastolic (congestive) heart failure Status: Acute (6) Benign prostatic hyperplasia: Code(s): N40.0 - Benign prostatic hyperplasia without lower urinary tract symptoms Status: Chronic (7) Chronic obstructive pulmonary disease: Code(s): J44.9 - Chronic obstructive pulmonary disease, unspecified Status: Chronic Plan The patient presented to the emergency department for evaluation after he was found unresponsive by staff at his nursing facility as detailed in HPI. Labs, imaging, EKG, and all reports were personally reviewed. Staff reports that the patient was unconscious and had difficulties palpating a pulse and CPR was initiated however he came to after 2 to 3 chest compression. EMS states he was hypotensive and bradycardic which he was given 300 mL lactated Ringer's and 20 mcg of push dose epinephrine. IV fluids were continued in the ED and his vital signs have remained stable since that time. Suspicion is low for true cardiac arrest and is more likely that he had syncope due to orthostasis or a vasovagal event. Pulmonary embolism is considered given history of the same and his hypoxia. He received IV contrast for CTA of the head and neck and contrast for the CT of the chest/abdomen/pelvis however that was not a chest CTA protocol. Obtain lower extremity venous Doppler ultrasounds and D-dimer. Depending on those results he may need a chest CTA tomorrow. Continue judicious IV fluid rehydration overnight. He is euvolemic if not a bit dry on exam. Avoid over-hydration and monitor strict I/O and daily weights. He is on ceftriaxone for evidence of urinary tract infection, pending urine culture. Potassium will be replaced and monitored. Continue to monitor closely in IMU. Check orthostatic vital signs. Initiate fall precautions. Atrial fibrillation is rate controlled. He is not on anticoagulation due to history of falls and intracerebral hemorrhage and he is status post left atrial appendage closure. Chronic conditions including chronic obstructive pulmonary disease, dementia, and benign prostatic hyperplasia are without acute issues. Subjective Date/time seen: 09/20/24 16:58 Interval history: Patient had a brief episode of unconsciousness possibly due to syncope or infectious. I will monitor until tomorrow and possible discharge Review of Systems Review of Systems: Unable to be obtained accurately as he suffers from pretty significant short-term memory loss. Exam Narrative: General: Chronically ill-appearing gentleman the semi-Bird position in bed in no distress. Weight: 79.4 kg. BMI: 23.7. HEENT: Normocephalic, atraumatic. PERRL, EOMI. Sclera anicteric. Tacky mucous membranes. Neck: Supple. No obvious carotid bruits. Respiratory: Lungs are clear to auscultation bilaterally. Cardiovascular: Irregularly irregular rate and rhythm. Gastrointestinal: Abdomen is soft, nontender, and nondistended with positive bowel sounds. Skin: Warm and dry. No rash or lesions on limited exam. Extremities: No cyanosis, clubbing, or edema. Radial and pedal pulses intact. Some atrophy of the lower limbs. Neurological: Alert to self and month and date of . He does not know in what contacts he was brought to the hospital and did not recall that he was in the hospital. Cranial nerves 2-12 are grossly intact. No facial asymmetry. Generalized weakness without gross focal findings. Psychiatric: Pleasantly confused and cooperative. Objective Data Vital Signs Vital Signs: Vital Signs - 24 hr 09/19/24 17:00 09/19/24 17:01 09/19/24 17:15 Temperature Pulse Rate 74 Respiratory Rate 11 L Blood Pressure 122/86 Pulse Oximetry 84 L 83 L Oxygen Delivery Oxygen Flow Rate 09/19/24 17:16 09/19/24 17:30 09/19/24 17:31 Temperature Pulse Rate 71 80 86 Respiratory Rate 11 L 12 10 L Blood Pressure 131/81 120/67 Pulse Oximetry 94 91 Oxygen Delivery Oxygen Flow Rate 09/19/24 17:45 09/19/24 17:46 09/19/24 18:00 Temperature Pulse Rate 79 84 99 Respiratory Rate 10 L 12 15 Blood Pressure 117/82 Pulse Oximetry 90 Oxygen Delivery Oxygen Flow Rate 09/19/24 18:15 09/19/24 19:20 09/19/24 20:00 Temperature 98.1 F Pulse Rate 86 65 Respiratory Rate 11 L 16 Blood Pressure 137/85 Pulse Oximetry 88 L 100 100 Oxygen Delivery Nasal Cannula Oxygen Flow Rate 2 09/19/24 20:00 09/19/24 22:00 09/19/24 23:53 Temperature 98.3 F Pulse Rate 85 74 76 Respiratory Rate 18 Blood Pressure 128/81 Pulse Oximetry 99 Oxygen Delivery Oxygen Flow Rate 09/20/24 00:00 09/20/24 00:00 09/20/24 02:00 Temperature Pulse Rate 78 106 H Respiratory Rate Blood Pressure Pulse Oximetry 98 Oxygen Delivery Nasal Cannula Oxygen Flow Rate 1 09/20/24 04:00 09/20/24 04:00 09/20/24 04:00 Temperature 97.9 F Pulse Rate 102 H 97 Respiratory Rate 18 Blood Pressure 132/95 H Pulse Oximetry 98 100 Oxygen Delivery Room Air Oxygen Flow Rate 09/20/24 04:17 09/20/24 04:28 09/20/24 04:29 Temperature Pulse Rate 105 H 86 96 Respiratory Rate Blood Pressure 132/95 H 113/80 Pulse Oximetry Oxygen Delivery Oxygen Flow Rate 09/20/24 06:00 09/20/24 07:28 09/20/24 08:00 Temperature 98.0 F Pulse Rate 86 92 132 H Respiratory Rate 16 Blood Pressure 164/95 H Pulse Oximetry 98 Oxygen Delivery Oxygen Flow Rate 09/20/24 08:00 09/20/24 08:15 09/20/24 10:00 Temperature 98.8 F Pulse Rate 92 114 H 88 Respiratory Rate 14 Blood Pressure 153/87 H Pulse Oximetry 100 Oxygen Delivery Oxygen Flow Rate 09/20/24 10:15 09/20/24 11:20 09/20/24 12:00 Temperature 98.5 F Pulse Rate 74 73 76 Respiratory Rate 18 16 Blood Pressure 113/78 122/68 Pulse Oximetry 98 94 Oxygen Delivery Oxygen Flow Rate 09/20/24 15:38 09/20/24 16:00 09/20/24 16:12 Temperature 99.0 F 98.4 F Pulse Rate 82 80 85 Respiratory Rate 16 18 Blood Pressure 144/88 H 140/85 Pulse Oximetry 99 100 Oxygen Delivery Oxygen Flow Rate Intake/Output Intake/Output: Intake & Output 09/17/24 09/18/24 09/19/24 09/20/24 23:59 23:59 23:59 23:59 Intake Total 1197.9 1513.2 Output Total 50 Balance 1147.9 1513.2 Meds/Results Medications: Active Medications Generic Name Dose Route Start Last Admin Trade Name Freq PRN Reason Stop Dose Admin Acetaminophen 650 mg 09/19/24 17:13 Acetaminophen 325 Mg Tablet PO Q4H PRN Mild Pain (1-3) or Fever Albuterol 2.5 mg 09/20/24 00:37 Albuterol Sulfate Neb 2.5 Mg/3 Ml Inh INHALATION Q6H PRN Wheezing Amlodipine Besylate 5 mg 09/20/24 09:00 09/20/24 08:16 Amlodipine Besylate 5 Mg Tablet PO 5 mg QAM MONET Administration Aspirin 81 mg 09/20/24 09:00 09/20/24 08:16 Aspirin 81 Mg Enteric Tablet PO 81 mg DAILY MONET Administration Atorvastatin Calcium 10 mg 09/20/24 01:00 09/20/24 01:02 Atorvastatin 10 Mg Tablet PO 10 mg HS MONET Administration Donepezil HCl 10 mg 09/20/24 01:00 09/20/24 01:02 Donepezil Hcl 10 Mg Tablet PO 10 mg HS MONET Administration Escitalopram Oxalate 5 mg 09/20/24 09:00 09/20/24 08:15 Escitalopram Oxalate 5 Mg Tablet PO 5 mg DAILY MONET Administration Folic Acid 1 mg 09/20/24 09:00 09/20/24 08:15 Folic Acid 1 Mg Tablet PO 1 mg QAM MONET Administration Ceftriaxone Sodium 1 gm in 50 mls @ 100 mls/hr 09/20/24 21:00 Rocephin 1 Gm/Ns 50 Ml IVPB HS MONET Metoprolol Tartrate 100 mg 09/20/24 09:00 09/20/24 08:15 Metoprolol Tartrate 50 Mg Tab PO 100 mg Q12HR MONET Administration Ondansetron HCl 4 mg 09/19/24 17:13 Ondansetron Inj 4 Mg/2 Ml Vial IV PUSH Q4H PRN Nausea Perflutren Lipid Microsphere 0 ml 09/19/24 21:18 Perflutren Lipid Microspheres 1.5 Ml Vial Diluted To 10 Ml Total Volume IV PUSH 09/22/24 21:20 ONCE PRN adequate visualization Protocol Radiology Results: ITS Impressions Head/Neck CTA 09/19/24 16:02 IMPRESSION: No acute intracranial hemorrhage or suspicious mass effect. Moderate calcified atheromatous carotid disease. No large vessel occlusion Findings within the left carotid bulb which may represent flow artifact. Percent stenosis per NASCET criteria is 30% on the right and 5% on the left. These findings were discussed with Dr. Huggins at 4:00 PM on 09/19/2024. Chest/Abdomen/Pelvis CT 09/19/24 16:45 IMPRESSION: No acute findings within the chest, abdomen or pelvis, as detailed above. Chest X-Ray 09/19/24 17:07 IMPRESSION: Coarse interstitial lung markings, without focal infiltrate or effusion. Carotid Doppler Study 09/20/24 10:43 Impression: No hemodynamically significant stenosis of the bilateral internal carotid arteries. Antegrade flow in the bilateral vertebral arteries. Note: The methodology used is an indirect measurement validated against a direct method (such as the NASCET criteria) that compares diameters at the stenosis to the distal ICA. Venous Doppler Study 09/20/24 10:43 Impression: No evidence of deep vein thrombosis involving either lower extremity. Labs Labs: Laboratory Results - last 24 hr 09/19/24 09/19/24 09/19/24 16:49 18:53 21:44 WBC RBC Hgb Hct MCV MCH MCHC RDW Plt Count MPV D-Dimer Sodium Potassium 3.3 L Chloride Carbon Dioxide Anion Gap BUN Creatinine Estim Creat Clear Calc Estimated GFR Glucose Lactic Acid 1.3 Calcium Magnesium 1.8 Troponin I < 0.012 NT-Pro-B Natriuret Pep TSH (Reflex) Urine Color Yellow Urine Appearance Cloudy H Urine pH 7.0 Ur Specific [place] > 1.045 H Urine Protein 1+ H Urine Glucose (UA) Negative Urine Ketones Negative Ur Blood (Man) Trace Urine Nitrate Positive H Urine Bilirubin Negative Urine Urobilinogen 1.0 Add Ur Microanalysis Reviewed Leukocyte Esterase Rfl 3+ H Urine RBC 3-5 H Urine WBC >100 H Ur Squamous Epith Cells None seen Urine Bacteria 4+ H Urine Casts 11-20 Hyaline Casts Present Urine Opiates Screen Negative Urine Methadone Screen Negative Ur Barbiturates Screen Negative Ur Phencyclidine Scrn Negative Ur Amphetamine Screen Negative U Benzodiazepines Scrn Negative Urine Cocaine Screen Negative U Cannabinoids Screen Negative 09/20/24 09/20/24 01:49 14:02 WBC 6.2 RBC 4.19 L Hgb 13.0 L Hct 39.0 L MCV 93.1 MCH 31.0 MCHC 33.3 RDW 12.6 Plt Count 154 MPV 10.3 D-Dimer 1.39 H Sodium 143 Potassium 2.9 L 3.5 Chloride 110 H Carbon Dioxide 25 Anion Gap 8 BUN 13 Creatinine 0.80 Estim Creat Clear Calc 79 Estimated GFR > 60 Glucose 124 H Lactic Acid Calcium 8.5 Magnesium Troponin I < 0.012 NT-Pro-B Natriuret Pep 1710 H TSH (Reflex) 0.978 Urine Color Urine Appearance Urine pH Ur Specific [place] Urine Protein Urine Glucose (UA) Urine Ketones Ur Blood (Man) Urine Nitrate Urine Bilirubin Urine Urobilinogen Add Ur Microanalysis Leukocyte Esterase Rfl Urine RBC Urine WBC Ur Squamous Epith Cells Urine Bacteria Urine Casts Hyaline Casts Urine Opiates Screen Urine Methadone Screen Ur Barbiturates Screen Ur Phencyclidine Scrn Ur Amphetamine Screen U Benzodiazepines Scrn Urine Cocaine Screen U Cannabinoids Screen Quality VTE Prophylaxis VTE prophylaxis: mechanical ordered Hospitalist MIPS Advance Care Plan I have confirmed that the patient's Advanced Care Plan is present, code status is documented, or surrogate decision maker is listed in patient medical record.: Yes Medication Reconciliation I have utilized all available resources to obtain, update and review the patients current medications (includes all prescriptions, OTC, herbals, cannabis, and nutritional supplements).: Yes
[2024-09-21] VITALS (17 sets, daily range): BP systolic 138–175; BP diastolic 85–150; PULSE 70–109; RESP 18–20; TEMP 36.3–37.1; O2SAT 96–99
[2024-09-21 04:20] LABS: Hematocrit 36.7 % (42.0-52.0); Hemoglobin 12.1 g/dL (14.0-18.0); Mean Corpuscular Volume 94.1 fl (80-100); Mean Platelet Volume 10.6 fl (7.4-10.4); Platelet Count Result 150 k/mm3 (150-375); Red Cell Distribution Width 12.8 % (11.5-14.5); White Blood Count 5.9 K/mm3 (4.5-10.0)
[2024-09-21 05:01] LABS: Alanine Aminotransferase 9 U/L (6-50); Albumin Level 3.2 g/dL (3.5-5.1); Alkaline Phosphatase 67 U/L (38-126); Anion Gap 6 mmol/L (4-12); Aspartate Amino Transferase 20 U/L (17-59); Bilirubin,Total 0.6 mg/dL (0.2-1.3); Blood Urea Nitrogen 8 mg/dL (9-20); Calcium 8.3 mg/dL (8.4-10.2); Carbon Dioxide 25 mmol/L (22-30); Chloride 108 mmol/L (98-107); Estimated CRCL calculation 87 ml/min; Estimated Glomerular Filt Rate > 60; Glucose 91 mg/dL (65-110); Potassium 3.3 mmol/L (3.4-5.0); Sodium 139 mmol/L (137-145); Total Protein 5.8 g/dL (6.3-8.2)
[2024-09-21] MEDS: ASPIRIN 81 MG ENTERIC TABLET PO (08:51)
[2024-09-21] MEDS: FOLIC ACID 1 MG TABLET PO (08:51)
[2024-09-21] MEDS: ESCITALOPRAM OXALATE 5 MG TABLET PO (08:51)
[2024-09-21] MEDS: METOPROLOL TARTRATE 50 MG TAB 100 MG PO ×2 (08:51→20:04)
[2024-09-21] MEDS: amLODIPine BESYLATE 5 MG TABLET PO (08:51)
--- NOTE | 2024-09-21 09:38 | P.DS_ITS ---
DS: Admitting Diagnosis Discharge Date 09/21/2024 Admitting Diagnosis Syncopal episode DS: Discharge Diagnosis Discharge Diagnosis (1) Syncope: Qualifiers: Syncope type: unspecified Qualified Code(s): R55 - Syncope and collapse Code(s): R55 - Syncope and collapse Status: Acute (2) Urinary tract infection: Qualifiers: Hematuria presence: with hematuria Urinary tract infection type: acute cystitis Qualified Code(s): N30.01 - Acute cystitis with hematuria Code(s): N39.0 - Urinary tract infection, site not specified Status: Acute (3) Hypokalemia: Code(s): E87.6 - Hypokalemia Status: Resolved (4) Atrial fibrillation: Onset Date: 07/2019 Code(s): I48.91 - Unspecified atrial fibrillation Status: Chronic (5) Heart failure with preserved ejection fraction: Code(s): I50.30 - Unspecified diastolic (congestive) heart failure Status: Acute (6) Benign prostatic hyperplasia: Code(s): N40.0 - Benign prostatic hyperplasia without lower urinary tract symptoms Status: Chronic (7) Chronic obstructive pulmonary disease: Code(s): J44.9 - Chronic obstructive pulmonary disease, unspecified Status: Chronic DS: Summary Hospital Course Hospital Course: Patient presented to the emergency department for evaluation after he was found unresponsive by staff at his nursing facility as detailed in HPI. Labs, imaging, EKG, and all reports were personally reviewed. Staff reports that the patient was unconscious and had difficulties palpating a pulse and CPR was initiated however he came to after 2 to 3 chest compression. EMS states he was hypotensive and bradycardic which he was given 300 mL lactated Ringer's and 20 mcg of push dose epinephrine. IV fluids were continued in the ED and his vital signs have remained stable since that time. Suspicion is low for true cardiac arrest and is more likely that he had syncope due to orthostasis or a vasovagal event. Pulmonary embolism is considered given history of the same and his hypoxia. He received IV contrast for CTA of the head and neck and contrast for the CT of the chest/abdomen/pelvis however that was not a chest CTA protocol. Obtain lower extremity venous Doppler ultrasounds and D-dimer. Depending on those results he may need a chest CTA tomorrow. Continue judicious IV fluid rehydration overnight . He is euvolemic if not a bit dry on exam. Avoid over-hydration and monitor strict I/O and daily weights. He is on ceftriaxone for evidence of urinary tract infection, pending urine culture. Potassium will be replaced and monitored. Continue to monitor closely in IMU. Check orthostatic vital signs. Initiate fall precautions. Atrial fibrillation is rate controlled. He is not on anticoagulation due to history of falls and intracerebral hemorrhage and he is status post left atrial appendage closure. Chronic conditions including chronic obstructive pulmonary disease, dementia, and benign prostatic hyperplasia are without acute issues. Patient underwent extensive workup we know is a lower extremity Doppler study which shows no deep venous thrombosis. Carotid Doppler study, chest x-ray, ches t abdomen pelvis CT shows no significant finding. Please refer to the full report. Patient is brief loss of conscious possibly due to syncopal episode due to dehydration vs UTI. Called her daughter Latha and given update. Patient will be discharged with Bactrim DS for 5 days for UTI. Patient will be discharged with clinical research monitor for 30 days. On the day of discharge, the patient was seen and examined. Vital signs were stable. Physical exam were stable and labs were reviewed at length. Discharge instructions, medications, and follow-up appointments were discussed with the patient at length and all day questions were answered. ER warnings were given. Status at Discharge Cognitive/behavioral status at discharge: Stable Time Spent with Patient Time attestation: Total time spent providing and/or coordinating discharge services: 45 minute Exam Narrative: General: Chronically ill-appearing gentleman the semi-Bird position in bed in no distress. Weight: 79.4 kg. BMI: 23.7. HEENT: Normocephalic, atraumatic. PERRL, EOMI. Sclera anicteric. Tacky mucous membranes. Neck: Supple. No obvious carotid bruits. Respiratory: Lungs are clear to auscultation bilaterally. Cardiovascular: Irregularly irregular rate and rhythm. Gastrointestinal: Abdomen is soft, nontender, and nondistended with positive bowel sounds. Skin: Warm and dry. No rash or lesions on limited exam. Extremities: No cyanosis, clubbing, or edema. Radial and pedal pulses intact. Some atrophy of the lower limbs. Neurological: Alert to self and month and date of . He does not know in what contacts he was brought to the hospital and did not recall that he was in the hospital. Cranial nerves 2-12 are grossly intact. No facial asymmetry. Generalized weakness without gross focal findings. Psychiatric: Pleasantly confused and cooperative. DS: Data Data Completed and Pending Labs on day of discharge: Labs from last 24 hours 09/21/24 09/20/24 03:52 14:02 WBC 5.9 RBC 3.90 L Hgb 12.1 L Hct 36.7 L MCV 94.1 MCH 31.0 MCHC 33.0 RDW 12.8 Plt Count 150 MPV 10.6 H Sodium 139 Potassium 3.3 L 3.5 Chloride 108 H Carbon Dioxide 25 Anion Gap 6 BUN 8 L D Creatinine 0.72 Estim Creat Clear Calc 87 Estimated GFR > 60 Glucose 91 Calcium 8.3 L Total Bilirubin 0.6 AST 20 ALT 9 Alkaline Phosphatase 67 Total Protein 5.8 L Albumin 3.2 L Preliminary micro results at discharge 09/19/24 16:02 Blood Culture - Preliminary Blood 09/19/24 18:53 Blood Culture - Preliminary Blood Discharge Plan Discharge Attending physician on discharge: Sebastian Jimenez Discharging Clinician: Sebastian Jimenez Anticipated Discharge Date/Time: 09/21/24 10:02 Patient Disposition: [facility] Activity: as tolerated Diet: heart healthy Discharge Instructions: Patient will be discharged with Bactrim DS for 5 days 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 Record and bring into your doctor for review. Call your doctor if your blood pressure is greater than 180/110 or less than 90/45. Walk with cane or other assist device. Take precautions to avoid falls. Rise slowly from a lying or sitting position. Pause before standing or walking. Contact your doctor or call 911 and come to the Emergency Room if you have any type of trauma, lightheadedness with standing or other worrisome symptoms. Avoid NSAIDs (ibuprofen, naproxen, Aleve). Tylenol is safe to take. Follow-up with your primary care provider in 1-2 weeks. Please call for appointment. Follow-up with Cardiology in 2-4 weeks. Please call for an appointment. Thank you for using [facility] for your health care needs. Patient Instructions: Antibiotic Form, Heart Failure (GEN), Aspiration Pneumonia (GEN), Hypotension (GEN) Patient Language: Nepali Stand Alone Forms: General Discharge Information Follow-up/Referrals: Jean-Claude Crawford MD [Primary Care Provider] - Michael Cedeno DO [Physician] - (Syncopal episode follow-up. clinical research monitor for 30 days) Discharge Medications: New sulfamethoxazole-trimethoprim [Bactrim DS] 800-160 mg tablet 1 tablet PO Q12H Qty: 10 0RF Continued metoprolol tartrate 50 mg tablet 100 mg PO Q12HR acetaminophen 325 mg Tablet 650 mg PO Q4H PRN (Reason: Pain (Scale Score 1-3)) albuterol sulfate 2.5 mg /3 mL (0.083 %) Solution For Nebulization 2.5 mg inhalation Q6H PRN (Reason: Wheezing) atorvastatin 10 mg tablet 10 mg PO HS aspirin 81 mg tablet,delayed release (DR/EC) 81 mg PO DAILY folic acid 1 mg tablet 1 mg PO QAM Lactobacillus acidoph-L.bulgar 1 million cell tablet 1 tablet PO BID amlodipine 5 mg tablet 5 mg PO QAM escitalopram oxalate 5 mg Tablet 5 mg PO DAILY losartan [Cozaar] 50 mg tablet 100 mg PO HS donepezil 10 mg tablet 10 mg PO HS guaifenesin 600 mg tablet extended release 12hr 600 mg PO Q12H PRN (Reason: congestion) Other Ambulatory Orders: [place] cardiac event monitor (Routine) Timeframe: 1 Week Location: Determined by Patient Ordered By: Sebastian Jimenez Date of admission: 09/20/24 09:21 Primary Care Provider: Jean-Claude Crawford Admitting Provider: Devin Villanueva Attending physician on admission: Devin Villanueva Condition: Stable
[2024-09-21] MEDS: POTASSIUM CHLORIDE 20 MEQ PACKET (FOR LIQUID) 40 MEQ PO (12:05)
--- NOTE | 2024-09-21 14:29 | P.PNIM_ITS ---
Progress Note: A&P Assessment and Plan (1) Syncope: Qualifiers: Syncope type: unspecified Qualified Code(s): R55 - Syncope and collapse Code(s): R55 - Syncope and collapse Status: Acute (2) Urinary tract infection: Qualifiers: Hematuria presence: with hematuria Urinary tract infection type: acute cystitis Qualified Code(s): N30.01 - Acute cystitis with hematuria Code(s): N39.0 - Urinary tract infection, site not specified Status: Acute (3) Hypokalemia: Code(s): E87.6 - Hypokalemia Status: Resolved (4) Atrial fibrillation: Onset Date: 07/2019 Code(s): I48.91 - Unspecified atrial fibrillation Status: Chronic (5) Heart failure with preserved ejection fraction: Code(s): I50.30 - Unspecified diastolic (congestive) heart failure Status: Acute (6) Benign prostatic hyperplasia: Code(s): N40.0 - Benign prostatic hyperplasia without lower urinary tract symptoms Status: Chronic (7) Chronic obstructive pulmonary disease: Code(s): J44.9 - Chronic obstructive pulmonary disease, unspecified Status: Chronic Plan The patient presented to the emergency department for evaluation after he was found unresponsive by staff at his nursing facility as detailed in HPI. Labs, imaging, EKG, and all reports were personally reviewed. Staff reports that the patient was unconscious and had difficulties palpating a pulse and CPR was initiated however he came to after 2 to 3 chest compression. EMS states he was hypotensive and bradycardic which he was given 300 mL lactated Ringer's and 20 mcg of push dose epinephrine. IV fluids were continued in the ED and his vital signs have remained stable since that time. Suspicion is low for true cardiac arrest and is more likely that he had syncope due to orthostasis or a vasovagal event. Pulmonary embolism is considered given history of the same and his hypoxia. He received IV contrast for CTA of the head and neck and contrast for the CT of the chest/abdomen/pelvis however that was not a chest CTA protocol. Obtain lower extremity venous Doppler ultrasounds and D-dimer. Depending on those results he may need a chest CTA tomorrow. Continue judicious IV fluid rehydration overnight. He is euvolemic if not a bit dry on exam. Avoid over- hydration and monitor strict I/O and daily weights. He is on ceftriaxone for evidence of urinary tract infection, pending urine culture. Potassium will be replaced and monitored. Continue to monitor closely in IMU. Check orthostatic vital signs. Initiate fall precautions. Atrial fibrillation is rate controlled. He is not on anticoagulation due to history of falls and intracerebral hemorrhage and he is status post left atrial appendage closure. Chronic conditions including chronic obstructive pulmonary disease, dementia, and benign prostatic hyperplasia are without acute issues. Subjective Date/time seen: 09/21/24 14:29 Interval history: Echocardiogram is pending. Possibly patient will be discharged under hospice. Holding discharge for further plan Review of Systems Review of Systems: Unable to be obtained accurately as he suffers from pretty significant short- term memory loss. Exam Narrative: General: Chronically ill-appearing gentleman the semi-Bird position in bed in no distress. Weight: 79.4 kg. BMI: 23.7. HEENT: Normocephalic, atraumatic. PERRL, EOMI. Sclera anicteric. Tacky mucous membranes. Neck: Supple. No obvious carotid bruits. Respiratory: Lungs are clear to auscultation bilaterally. Cardiovascular: Irregularly irregular rate and rhythm. Gastrointestinal: Abdomen is soft, nontender, and nondistended with positive bowel sounds. Skin: Warm and dry. No rash or lesions on limited exam. Extremities: No cyanosis, clubbing, or edema. Radial and pedal pulses intact. Some atrophy of the lower limbs. Neurological: Alert to self and month and date of . He does not know in what contacts he was brought to the hospital and did not recall that he was in the hospital. Cranial nerves 2-12 are grossly intact. No facial asymmetry. Generalized weakness without gross focal findings. Psychiatric: Pleasantly confused and cooperative. Objective Data Vital Signs Vital Signs: Vital Signs - 24 hr 09/20/24 15:38 09/20/24 16:00 09/20/24 16:12 Temperature 99.0 F 98.4 F Pulse Rate 82 80 85 Respiratory Rate 16 18 Blood Pressure 144/88 H 140/85 Pulse Oximetry 99 100 Oxygen Delivery 09/20/24 18:00 09/20/24 19:12 09/20/24 19:47 Temperature Pulse Rate 89 86 Respiratory Rate 16 Blood Pressure 132/80 Pulse Oximetry 99 100 Oxygen Delivery Room Air 09/20/24 20:00 09/20/24 20:00 09/20/24 20:00 Temperature 98.0 F Pulse Rate 89 86 82 Respiratory Rate 16 Blood Pressure 140/71 140/71 145/109 H Pulse Oximetry 100 Oxygen Delivery 09/20/24 20:00 09/20/24 20:22 09/20/24 22:00 Temperature Pulse Rate 80 90 104 H Respiratory Rate Blood Pressure Pulse Oximetry Oxygen Delivery 09/21/24 00:00 09/21/24 00:00 09/21/24 00:15 Temperature 98.4 F Pulse Rate 86 83 85 Respiratory Rate 20 Blood Pressure 174/93 H 138/85 Pulse Oximetry 99 Oxygen Delivery 09/21/24 02:00 09/21/24 03:43 09/21/24 04:00 Temperature 98.7 F Pulse Rate 99 82 82 Respiratory Rate 18 Blood Pressure 140/95 H Pulse Oximetry 97 Oxygen Delivery 09/21/24 06:00 09/21/24 07:44 09/21/24 07:44 Temperature 98.2 F 98.2 F Pulse Rate 70 97 97 Respiratory Rate 20 20 Blood Pressure 175/150 H 175/150 H Pulse Oximetry 98 98 Oxygen Delivery 09/21/24 07:46 09/21/24 08:00 09/21/24 08:00 Temperature Pulse Rate 109 H 87 Respiratory Rate Blood Pressure 167/101 H Pulse Oximetry Oxygen Delivery Room Air 09/21/24 10:00 09/21/24 12:00 Temperature Pulse Rate 82 70 Respiratory Rate Blood Pressure Pulse Oximetry Oxygen Delivery Intake/Output Intake/Output: Intake & Output 09/18/24 09/19/24 09/20/24 09/21/24 23:59 23:59 23:59 23:59 Intake Total 1197.9 2043.2 360 Output Total 50 Balance 1147.9 2043.2 360 Meds/Results Medications: Active Medications Generic Name Dose Route Start Last Admin Trade Name Freq PRN Reason Stop Dose Admin Acetaminophen 650 mg 09/19/24 17:13 Acetaminophen 325 Mg Tablet PO Q4H PRN Mild Pain (1-3) or Fever Albuterol 2.5 mg 09/20/24 00:37 Albuterol Sulfate Neb 2.5 Mg/3 Ml Inh INHALATION Q6H PRN Wheezing Amlodipine Besylate 5 mg 09/20/24 09:00 09/21/24 08:51 Amlodipine Besylate 5 Mg Tablet PO 5 mg QAM MONET Administration Aspirin 81 mg 09/20/24 09:00 09/21/24 08:51 Aspirin 81 Mg Enteric Tablet PO 81 mg DAILY MONET Administration Atorvastatin Calcium 10 mg 09/20/24 01:00 09/20/24 20:23 Atorvastatin 10 Mg Tablet PO 10 mg HS MONET Administration Donepezil HCl 10 mg 09/20/24 01:00 09/20/24 20:22 Donepezil Hcl 10 Mg Tablet PO 10 mg HS MONET Administration Escitalopram Oxalate 5 mg 09/20/24 09:00 09/21/24 08:51 Escitalopram Oxalate 5 Mg Tablet PO 5 mg DAILY MONET Administration Folic Acid 1 mg 09/20/24 09:00 09/21/24 08:51 Folic Acid 1 Mg Tablet PO 1 mg QAM MONET Administration Metoprolol Tartrate 100 mg 09/20/24 09:00 09/21/24 08:51 Metoprolol Tartrate 50 Mg Tab PO 100 mg Q12HR MONET Administration Ondansetron HCl 4 mg 09/19/24 17:13 Ondansetron Inj 4 Mg/2 Ml Vial IV PUSH Q4H PRN Nausea Perflutren Lipid Microsphere 0 ml 09/19/24 21:18 Perflutren Lipid Microspheres 1.5 Ml Vial Diluted To 10 Ml Total Volume IV PUSH 09/22/24 21:20 ONCE PRN adequate visualization Protocol Radiology Results: ITS Impressions Head/Neck CTA 09/19/24 16:02 IMPRESSION: No acute intracranial hemorrhage or suspicious mass effect. Moderate calcified atheromatous carotid disease. No large vessel occlusion Findings within the left carotid bulb which may represent flow artifact. Percent stenosis per NASCET criteria is 30% on the right and 5% on the left. These findings were discussed with Dr. Huggins at 4:00 PM on 09/19/2024. Chest/Abdomen/Pelvis CT 09/19/24 16:45 IMPRESSION: No acute findings within the chest, abdomen or pelvis, as detailed above. Chest X-Ray 09/19/24 17:07 IMPRESSION: Coarse interstitial lung markings, without focal infiltrate or effusion. Carotid Doppler Study 09/20/24 10:43 Impression: No hemodynamically significant stenosis of the bilateral internal carotid arteries. Antegrade flow in the bilateral vertebral arteries. Note: The methodology used is an indirect measurement validated against a direct method (such as the NASCET criteria) that compares diameters at the stenosis to the distal ICA. Venous Doppler Study 09/20/24 10:43 Impression: No evidence of deep vein thrombosis involving either lower extremity. Labs Labs: Laboratory Results - last 24 hr 09/21/24 03:52 WBC 5.9 RBC 3.90 L Hgb 12.1 L Hct 36.7 L MCV 94.1 MCH 31.0 MCHC 33.0 RDW 12.8 Plt Count 150 MPV 10.6 H Sodium 139 Potassium 3.3 L Chloride 108 H Carbon Dioxide 25 Anion Gap 6 BUN 8 L D Creatinine 0.72 Estim Creat Clear Calc 87 Estimated GFR > 60 Glucose 91 Calcium 8.3 L Total Bilirubin 0.6 AST 20 ALT 9 Alkaline Phosphatase 67 Total Protein 5.8 L Albumin 3.2 L Quality VTE Prophylaxis VTE prophylaxis: mechanical ordered Hospitalist MIPS Advance Care Plan I have confirmed that the patient's Advanced Care Plan is present, code status is documented, or surrogate decision maker is listed in patient medical record.: Yes Medication Reconciliation I have utilized all available resources to obtain, update and review the patients current medications (includes all prescriptions, OTC, herbals, cannabis, and nutritional supplements).: Yes
[2024-09-21] MEDS: DONEPEZIL HCL 10 MG TABLET PO (20:04)
[2024-09-21] MEDS: ATORVASTATIN 10 MG TABLET PO (20:04)
--- NOTE | 2024-09-21 21:20 | ECHO_ITS ---
Patient Info Name: Lloyd Redman Age: 74 years : 1950 Gender: Male Ht: 72 in Wt: 179 lbs BSA: 2.04 m2 HR: 70 bpm BP: 140 / 95 mmHg Heart Rhythm: Atrial Fibrillation Technical Quality: Poor Exam Date: 09/21/2024 9:09 AM Patient Status: I Admit Date: 09/20/2024 Exam Type: CA echo doppler color flow Complete two-dimensional, color flow and Doppler transthoracic echocardiogram is performed. Staff Referring Physician: Corinna Ramos [facility] Human Resources Intern: Mary Wadsworth Attending Provider: Devin Villanueva Summary 1. Complete two-dimensional, color flow and Doppler transthoracic echocardiogram is performed. 2. Left ventricular hypertrophy with vigorous systolic contractility. 3. severe left atrial enlargement. 4. mildly sclerotic aortic valve which is nonstenotic. 5. atrial fibrillation. 6. technically challenging exam, patient uncooperative. Left Ventricle Left ventricular chamber dimension is normal. Left ventricular systolic function is normal, estimated at 65-70. There is mild concentric increased left ventricular wall thickness. The left ventricular diastolic function is indeterminate. Right Ventricle Right ventricular chamber dimension is normal. Left Atria Left atrial chamber dimension is severely enlarged. Right Atria Right atrial chamber dimension is mildly enlarged. Aortic Valve The aortic valve is trileaflet. There is mild aortic valve sclerosis. Pulmonic Valve The pulmonic valve is normal. Mitral Valve The mitral valve has normal leaflets. Tricuspid Valve The tricuspid valve leaflets are normal. Pericardium/Pleural The pericardium appears normal. Aorta The aortic root size at the sinus of Valsalva is not well visualized. Left Ventricular Outflow Tract Name Value Normal LVOT 2D LVOT Diameter 2.3 cm LVOT Doppler LVOT Peak Velocity 67 cm/s LVOT Peak Gradient 2 mmHg LVOT Mean Gradient 1 mmHg LVOT VTI 12 cm LVOT VTI/AV VTI Ratio 0.7 LVOT Stroke Volume 51 ml LVOT CO 3.7 l/min LVOT CI 1.8 l/min/m2 Pulmonic Valve Name Value Normal PV Doppler PV Peak Velocity 73 cm/s PV Peak Gradient 2 mmHg Tricuspid Valve Name Value Normal TV Regurgitation Doppler TR Peak Velocity 73 cm/s TR Peak Gradient 2 mmHg Estimated PAP/RSVP RA Pressure 10 mmHg <=5 PA Systolic Pressure 12 mmHg <36 RV Systolic Pressure 12 mmHg <36 TV Annular TDI TV Lateral Araceli s' Velocity 7.1 cm/s >=9.5 Aortic Valve Name Value Normal AV Doppler AV Peak Velocity 95 cm/s AV Peak Gradient 4 mmHg AV Mean Gradient 2 mmHg AV VTI 16 cm AV Area (Cont Eq VTI) 3.1 cm2 >=3.0 AV Area (Cont Eq Teddy) 3.0 cm2 AV DI (Teddy) 0.70 AV Regurgitation 2D LVOT Area 4.2 cm2 Ventricles Name Value Normal LV Dimensions 2D/MM IVS Diastolic Thickness (2D) 1.6 cm 0.6-1.0 LVID Diastole (2D) 4.3 cm 4.2-5.8 LVIW Diastolic Thickness (2D) 1.8 cm 0.6-1.0 LVID Systole (2D) 3.3 cm 2.5-4.0 LVOT Diameter 2.3 cm LV Mass (2D Cubed) 316.75 g 88.00-224.00 LV Mass Index (2D Cubed) 156 g/m2 49-115 Relative Wall Thickness (2D) 0.83 <=0.42 LV Fractional Shortening/Ejection Fraction 2D/MM LV Fractional Shortening (2D) 22 % 25-43 LV EF (2D Teichholz) 45 % LV Diastolic Volume (4C MOD) 40 ml LV EF (4C MOD) 39 % LV Diastolic Volume (2C MOD) 36 ml LV EF (2C MOD) 37 % LV Diastolic Volume (BP MOD) 38 ml 62-150 LV Diastolic Volume Index (BP MOD) 18 ml/m2 34-74 LV Systolic Volume (BP MOD) 24 ml 21-61 LV Systolic Volume Index (BP MOD) 12 ml/m2 11-31 LV EF (BP MOD) 36 % 52-72 LV Diastolic Length (4C) 7.2 cm LV Systolic Length (4C) 6.1 cm LV Stroke Volume (4C MOD) 16 ml Atria Name Value Normal LA Dimensions LA Volume (4C A-L) 106 ml LA Volume (BP A-L) 102 ml RA Dimensions RA Systolic Major [place] Length (4C) 6.5 cm 2.1-2.7 RA Area (4C) 23.0 cm2 <=18.0 Report Signatures
[2024-09-22 08:00] VITALS: BP 145/95; PULSE 76; RESP 16; TEMP 36.5; O2SAT 100
[2024-09-22] MEDS: amLODIPine BESYLATE 5 MG TABLET PO (08:57)
[2024-09-22] MEDS: ASPIRIN 81 MG ENTERIC TABLET PO (08:57)
[2024-09-22] MEDS: FOLIC ACID 1 MG TABLET PO (08:57)
[2024-09-22] MEDS: METOPROLOL TARTRATE 50 MG TAB 100 MG PO (08:57)
[2024-09-22] MEDS: ESCITALOPRAM OXALATE 5 MG TABLET PO (08:57)
[2024-09-22 10:29] VITALS: O2SAT 97
--- NOTE | 2024-09-22 12:40 | PC.NURSE ---
Discharge instructions and discharge med list faxed to [facility] [phone]. Ambulance to arrive for transport at approx 1300.
== END 2024-09-22 13:10 | DRG 312 ==
LOC: ANHED 17:28 → ANHIMU 18:33
PROVIDERS: Physician Assistant; Admitting Provider Internal Medicine; Emergency Provider Student in an Organized Health Care Education/Training Program; PCP Family Medicine; Visit Provider General Practice
DX: R55 Syncope and collapse (principal); N39.0 Urinary tract infection, site not specified; I48.20 Chronic atrial fibrillation, unspecified; I50.32 Chronic diastolic (congestive) heart failure; I11.0 Hypertensive heart disease with heart failure; J44.9 Chronic obstructive pulmonary disease, unspecified; E87.6 Hypokalemia; E78.5 Hyperlipidemia, unspecified; E55.9 Vitamin D deficiency, unspecified; B39.9 Histoplasmosis, unspecified; K21.9 Gastro-esophageal reflux disease without esophagitis; N40.0 Benign prostatic hyperplasia without lower urinary tract symptoms; F41.9 Anxiety disorder, unspecified; Z86.73 Personal history of transient ischemic attack (TIA), and cerebral infarction without residual deficits; Z87.891 Personal history of nicotine dependence; Z79.82 Long term (current) use of aspirin
CPT/HCPCS: 36415; 70496; 70498; 71045; 71260; 74177; 80048; 80053; 80307; 81001; 82077; 82948; 83605; 83735; 83880; 84132; 84443; 84484; 85025; 85027; 85380; 85610; 85730; 87040; 87086; 87186; 93005; 93306; 93880; 93970; 96361; 96365; 96375; 99285; A9270; G0378; J0696; J2310; J3480; J7030; J7040; J7120; Q9967